=== PATIENT | male | born 1950 | race Caucasian/White ===

== ENCOUNTER 2023-04-18 08:53 | Outpatient (OUT) | payer MEDICARE, SELFPAY ==
[2023-04-18 09:10] LABS: Basophils Percent Auto 0.6 % (0.2-2.0); Hemoglobin 14.7 g/dL (14.0-18.0); Immature Granulocytes Abs Auto 0.01 10^3/uL (0.00-0.03); Immature Granulocytes Pct Auto 0.1 % (0.0-0.5); Lymphocytes Percent Auto 27.5 % (20.5-60.0); Mean Corpuscular HGB Conc 33.4 g/dL (29.9-35.2); Mean Corpuscular Hemoglobin 32.4 pg (25.9-34.0); Mean Corpuscular Volume 96.9 fL (80.0-94.0); Mean Platelet Volume 9.9 fL (9.5-13.5); Monocytes Absolute Auto 0.7 10^3/uL (0.3-0.8); Monocytes Percent Auto 9.6 % (1.7-12.0); Neutrophils Absolute Auto 4.5 10^3/uL (1.4-6.5); Neutrophils Percent Auto 62.2 % (43.0-75.0); Platelet Count 256 10^3/uL (150-450); Red Blood Count 4.54 10^6/uL (4.70-6.10); White Blood Count 7.2 10^3/uL (4.0-11.0)
[2023-04-18 09:48] LABS: Alanine Aminotransferase 44 U/L (16-63); Anion Gap 12.2; BUN Creatinine Ratio 17.3; Carbon Dioxide 27.2 mmol/L (21.0-32.0); Chloride 102 mmol/L (98-107); Chol HDL Ratio 3.9; Cholesterol 170 mg/dL (<=200); Estimated GFR (African America >60 (>=60); Estimated GFR (Non-African Ame >60 (>=60); Glucose 110 mg/dL (74-106); HDL Cholesterol 44 mg/dL (40-60); Potassium 4.4 mmol/L (3.5-5.1); Sodium 137 mmol/L (136-145); Triglycerides 196 mg/dL (<=150); VLDL CHOLESTEROL 39.2 mg/dL
== END 2023-04-18 08:54 | disposition home or self-care (01) ==
LOC: LAB 08:54
PROVIDERS: PCP Internal Medicine; Visit Provider Internal Medicine
DX: K21.00 Gastro-esophageal reflux disease with esophagitis, without bleeding (principal); Z79.899 Other long term (current) drug therapy; E78.01 Familial hypercholesterolemia; R53.83 Other fatigue; Z12.5 Encounter for screening for malignant neoplasm of prostate
CPT/HCPCS: 36415; 80048; 80061; 84460; 85025; G0103

== ENCOUNTER 2023-07-08 09:30 | Outpatient (OUT) | payer MEDICARE, SELFPAY ==
--- NOTE | 2023-07-08 09:52 | XR_ITS ---
The [address] [address] Patient Name: SAV RAYMUNDO MRN: [id number] date: 1950 Sex: M Assigned Patient Location: [facility] Current Patient Location: [facility] Accession/Order Number: [id number] Exam Date: 07/08/2023 09:45 Report Date: 07/08/2023 10:01 At the request of: YULI MARISCAL Procedure: XR chest 2V EXAM: XR chest 2V HISTORY: Subacute Cough R05.2 COMPARISON: None. TECHNIQUE: PA and lateral views of the chest. FINDINGS: The cardiomediastinal silhouette is normal. No focal consolidation is identified. There is no pneumothorax. No pleural effusion is noted. The osseous structures are intact. XR/XR chest 2V IMPRESSION: No acute cardiopulmonary process. Electronically authenticated by: WES VITALE Date: 07/08/2023 10:01
== END 2023-07-08 09:31 | disposition home or self-care (01) ==
LOC: RAD 09:32
PROVIDERS: PCP Internal Medicine; Visit Provider Internal Medicine
DX: R05.2 Subacute cough (principal)
CPT/HCPCS: 71046

== ENCOUNTER 2023-08-15 11:35 | Emergency (ER) | payer MEDICARE, SELFPAY ==
[2023-08-15] VITALS (12 sets, daily range): BP systolic 165; BP diastolic 95; PULSE 73–82; RESP 14–28; TEMP 37.1; O2SAT 98; BMI 30.5
--- NOTE | 2023-08-15 11:44 | PC.NURSE ---
PT STATES THAT PT HAS HAD COUGH THAT STARTED AROUND THANKSGIVING. PT STATES THAT DR MARISCAL WANTED PT TO HAVE BLOOD WORK, ECHO, AND CT OF CHEST. PT STATES THAT BETWEEN DR MARISCAL OFFICE AND THE HOSPITAL SCHEDULING SOMEHOW ORDERS WERE NOT RECEIVED AND DR MARISCAL TO PT TO COME TO ER FOR TESTING.
--- OUTSIDE RECORDS SUMMARY | 2023-08-15 11:50 | XMS_ITS | CCD ---
Author Name Unknown Address [address] [place] [address] Organization [facility] Care Team Providers Care Stitching Department Supervisor Name Role Phone Ball, Dawit E Unavailable Ball, Dawit E Unavailable Karthik Calloway Unavailable [phone] Unavailable Primary Care Provider Unavailabl e Ball, Dawit E Primary Care Provider Ball, Dawit E Unavailable Karthik Calloway Unavailable Ball, Dawit E Primary Care Provider Ball, Dawit E Unavailable Karthik Calloway Unavailable Unavailabl e Ball DO, Dawit E Primary Care Provider Ball DO, Dawit E Unavailable Karthik Calloway MD Unavailable Unavail able REQUEST, NONE LISTED Consulting Unavaila ble REQUEST, DR RUBIO LISTED Admitting Unavaila ble BALL, DR ROLDAN Primary Care Unavailable REQUEST, NONE LISTED Attending Unavaila ble BALL, DR ROLDAN Attending Unavailable BALL, DR ROLDAN Consulting Unavailable BALL, DR ROLDAN Admitting Unavailable Ball DO, Dawit E Primary Care Provider Ball DO, Dawit E Unavailable [phone] Karthik Calloway MD Unavailable Unavail able Dawit Lorenz Unavailable MARGIE LI Referring Unavailab MARGIE Buckner Admitting Unavailab le LOIDA, DAWIT E Primary Care Unavailable LOIDA, DAWIT E Primary Care Unavailable FLIP HILL Attending Unavailable LOIDA, DAWIT E Primary Care Unavailable MARGIE LI Attending Unavailab le LOIDA, DAWIT E Primary Care Unavailable NENA BYNUM Attending Unavailable BALL, DAWIT E Primary Care Unavailable NENA BYNUM Admitting Unavailable NENA BYNUM Referring Unavailable DAWIT LORENZ Primary Care Unavailable MARGIE LI Attending UnavailDAWIT Barry Primary Care Unavailable MARGIE LI Attending Unavailab DAWIT Gonzalez Primary Care Unavailable MARGIE LI Referring Unavailab MARGIE Buckner Admitting Unavailab MARGIE Buckner Referring Unavailab le MARGIE LI Admitting Unavailab DAWIT Gonzalez Primary Care Unavailable MARGIE LI Referring Unavailab le MARGIE LI Admitting Unavailab DAWIT Gonzalez Primary Care Unavailable Allergies Allergy Classification Reported Allergen(s) Allergy Type Date of Onset Reaction(s) Facility (16 sources) acetaminophen / oxyCODONE; Translations: [OXYCODONE-ACETAM INOPHEN] Propensity to adverse reactions to drug 6 Other (See Comments) [facility] Work Phone: (20 sources) traMADol; Translations: [TRAMADOL] Propensity to adverse reactions to drug 5 Shortness Of Breath [facility] Work Phone: (1 source) traMADol Drug Allergy 6 [facility] Medications Current Medications Medication Drug Class(es) Dates Sig (Normalized) Sig (Original) AeroChamber Mini Chamber - (1 source) Start: 07-23-2023 AeroChamber Mini Chamber - Use w/ MDI inhaled every 6 hours as needed for 30 days Jul, Active [id number] actuat albuterol 0.09 mg/actuat metered dose inhaler (1 source) beta2-Adrenergic Agonist Start: 07-23-2023 Albuterol Sulfate HFA 108 (90 Base) MCG/ACT 2 puffs Inhalation every 6 hours as needed for cough. Minimum bid for 30 days Jul, Active ASCORBATE CALCIUM (VITAMIN C ORAL) (14 sources) take 1 tablet by mouth once daily in the morning ASCORBATE CALCIUM (VITAMIN C ORAL) Take 1 tablet by mouth every morning . 0 Active take 1 tablet by av th once daily in the morning ASCORBATE CALCIUM (VITAMIN C ORAL) Take 1 tablet by mouth every morning . Active aspirin 81 mg delayed release oral tablet (15 sources) Platelet Aggregation Inhibitor, Nonsteroidal Anti-inflammatory Drug take 1 tablet by mouth at bedtime aspirin 81 MG EC tablet Take 1 (one) tablet (81 mg total) by mouth at bedtime . 0 Active benzonatate 100 mg oral capsule (4 sources) Non-narcotic Antitussive Start: 07-07-19 24 take 1 capsule by mouth every eight hours Benzonatate 100 MG 1 capsule as needed Orally Three times a day for 15 days Jun, Active Biotin (15 sources) take 1 tablet by mouth once daily in the morning BIOTIN ORAL Take 1 tablet by mouth every morning . 0 Active take 1 tablet by av th once daily in the morning BIOTIN ORAL Take 1 tablet by mouth every morning . Active take 1 tablet by av th once daily in the morning BIOTIN ORAL Take 1 tablet by mouth every morning . Active calcium polycarbophil 625 mg oral tablet (15 sources) take 1 tablet by mouth once daily in the morning polycarbophil (FIBERCON) 625 mg tablet Take 1 (one) tablet (625 mg total) by mouth every morning . 0 Active ciprofloxacin 3 mg/ml ophthalmic solution (6 sources) Quinolone Antimicrobial Start: 10-05-19 take 1 drop(s) into the eye(s) four times daily ciprofloxacin HCl (CILOXAN) 0.3 % ophthalmic solution INSTILL 1 DROP INTO AFFECTED EYE 4 TIMES DAILY 0 10/04/2022 Active codeine phosphate 2 mg/ml / guaiFENesin 20 mg/ml oral solution (2 sources) Opioid Agonist Start: 07-10-19 take 10 mL by mouth every six hours as needed for cough guaiFENesin-Codeine 100-10 MG/5ML 10 mL as needed Orally every 6 hours as needed for cough for 7 days Jun, Active diclofenac sodium 0.01 mg/mg topical gel (9 sources) Nonsteroidal Anti-inflammatory Drug Start: 05-13-20 diclofenac sodium (Voltaren) 1 % Gel Apply 2 (two) g topically 4 (four) times a day Apply 2 grams to affected area up to 4 times a day as needed PRN pain. . 900 g 2 05/13/2023 Active Start: 08-30-2022 End: 08-30-2022 diclofenac sodium (Voltaren) 1 % Gel Apply 2 (two) g topically 4 (four) times a day Apply 2 grams to affected area up to 4 times a day as needed PRN pain. . 300 g 2 08/31/2022 Active fluorouracil 50 mg/ml topical cream (12 sources) Nucleoside Metabolic Inhibitor Start: 07-12-2020 fluorouraciL (EFUDEX ) 5 % cream GUAIFENESIN/DEXTROMETHO RPHAN (MUCINEX DM ORAL) (14 sources) GUAIFENESIN/DEXT ROMETH ORPHAN (MUCINEX DM ORAL) Take by mouth. 0 Active GUAIFENESIN/DEXT ROMETHORPHAN (MUCINEX DM ORAL) Take by mouth. Active ketorolac tromethamine 5 mg/ml ophthalmic solution (6 sources) Nonsteroidal Anti-inflammatory Drug, Cyclooxygenase Inhibitor Start: 10-01-2022 take 2 drop(s) into the eye(s) twice daily ketorolac (ACULAR) 0.5 % ophthalmic solution INSTILL 2 DROPS INTO AFFECTED EYE TWICE DAILY 0 10/01/2022 Active loratadine 10 mg oral tablet (15 sources) take 1 tablet by mouth once daily in the evening loratadine (CLARITIN) 10 mg tablet Take 1 (one) tablet (10 mg total) by mouth every evening . 0 Active losartan potassium 25 mg oral tablet (7 sources) Angiotensin 2 Receptor Masha Start: 04-25-2023 take 1 tablet by mouth every twenty-four hours Losartan Potassium 25 MG 1 tablet Orally Once a day for 90 days Apr, Active meloxicam 15 mg oral tablet (20 sources) Nonsteroidal Anti-inflammatory Drug Start: 05-13-2023 meloxicam (MOBIC) 15 MG tablet Take 1 (one) tablet (15 mg total) by mouth as needed . 90 tablet 0 05/13/2023 Active Start: 07-20-2020 End: 02-11-2023 meloxicam (MOBIC) 15 MG tabl et Take 1 (one) tablet (15 mg total) by mouth as needed . 90 tablet 0 02/12/2023 Active Start: 02-25-2017 End: 02-25-2018 take 1 tablet by mouth twice daily as needed for pain meloxicam (MOBIC) 7.5 MG tablet Take 1 (one) tablet (7.5 mg total) by mouth 2 (two) times a day as needed for pain. 180 tablet 3 02/25/2017 02/25/2018 Active Start: 01-29-2017 End: 01-29-2018 take 0.5 tablet by mouth twice daily meloxicam (MOBIC) 15 MG tablet Indications: Status post total right knee replacement Take 0.5 (one-half) tablet (7.5 mg total) by mouth 2 (two) times a day. 180 tablet 3 01/29/2017 01/29/2018 Active End: 07-20-2020 take 1-2 tablets by mouth once daily as needed meloxicam (MOBIC) 7.5 MG tablet Take 7.5 mg by mouth daily 1-2 tabs prn . 0 07/20/2020 Discontinued multivitamin (multivitamin) per tablet (5 sources) take 1 tablet by av th once daily in the morning multivitamin (multivitamin) per tablet Take 1 tablet by mouth every morning . 0 Active take 1 tablet by av th once daily in the morning multivitamin (multivitamin) per tablet T kerry 1 tablet by mouth every morning . Active multivitamin (THERAGRAN) per tablet (9 sources) take 1 tablet by mouth once daily in the morning multivitamin (THERAGRAN) per tablet Take 1 (one) tablet by mouth every morning . 0 Active Multivitamin Tablet (1 source) take 1 tablet by mouth once daily in the morning multivitamin (multivitamin) per tablet Take 1 tablet by mouth every morning . Active [place] 3 (11 sources) [place] 3 Active prednisoLONE acetate 10 mg/ml ophthalmic suspension (6 sources) Corticosteroid Start: 10-02-19 23 prednisoLONE acetate (PRED FORTE) 1 % ophthalmic suspension INSTILL 1 DROP INTO AFFECTED EYE INTO AFFECTED EYE 4 TIMES DAILY DIRECTED 0 10/01/2022 Active predniSONE 20 mg oral tablet (1 source) Start: 07-23-19 24 predniSONE 20 MG 1 tablet Orally bid w/ food x 4 days then qd w/ food x 4 days for 8 days Jul, Active raNITIdine (3 sources) Histamine-2 Receptor Antagonist Ranitidine HCl Active tamsulosin hydrochloride 0.4 mg oral capsule (20 sources) alpha-Adrenergic Masha take 1 capsule by mouth every twenty-four hours Tamsulosin HCl 0.4 MG 1 capsule Orally Once a day Active vit A-vit C-vit E-vjxa-cizsjh (EYE VITAMIN AND MINERALS) 7,160-113-100 kcld-si-uzpy Tab (4 sources) take 1 tablet by mouth once daily in the morning vit A-vit C-vit N-myjb-hbaxzp (EYE VITAMIN AND MINERALS) 7,160-113-100 swwi-gs-ozwi Tab Take 1 tablet by mouth every morning . 0 Active vit A-vit C-vit S-tgta-mmegvd 7,160-113-100 nxoi-ku-owdc Tab (9 sources) take 1 tablet by mouth once daily in the morning vit A-vit C-vit B-gfjg-gmxwuw 7,160-113-100 buge-pm-ubsw Tab Take 1 tablet by mouth every morning . 0 Active Vitamin C Oral (1 source) take 1 tablet by mouth once daily in the morning ASCORBATE CALCIUM (VITAMIN C ORAL) Take 1 tablet by mouth every morning . Active Vit A 7,160 Unit-Vit C 113 Mg-Vit E 100 Xyso-Moum-Qtqhwu Tablet (2 sources) take 1 tablet by mouth once daily in the morning vit A-vit C-vit C-wwkf-kqxmeu (EYE VITAMIN AND MINERALS) 7,160-113-100 mqyi-uz-wogh Tab Take 1 tablet by mouth every morning . Active Completed/Discontinued Medications Medication Drug Class(es) Dates Sig (Normalized) Sig (Original) allopurinol 300 mg oral tablet (20 sources) Xanthine Oxidase Inhibitor Start: 01-08-2022 take 1 tablet by mouth once daily Allopurinol 300MG Allopurinol 300MG, 1 (one) Tablet daily # 0, 01/08/2022, No Refill. Active Oral daily for 0 *Pick strength-form from [employer] for eRX* Dec, Not-Taking atorvastatin 10 mg oral tablet (20 sources) HMG-CoA Reductase Inhibitor Start: 08-15-2021 take 1 tablet by mouth once daily in the evening Atorvastatin Calcium 10MG Atorvastatin Calcium 10MG, 1 (one) Tablet Tablet daily in evening # 0, 08/15/2021, No Refill. Active Oral daily in evening for 0 *Pick strength-form from [employer] for eRX* Aug, Not-Taking azithromycin 250 mg oral tablet (20 sources) Macrolide Antimicrobial Start: 11-15-2022 Azithromycin 250 MG as directed Orally daily for 5 days May, Not-Taking/PRN cephalexin 500 mg oral capsule (20 sources) Cephalosporin Antibacterial Start: 01-10-2023 take 1 capsule by mouth every eight hours Cephalexin 500 MG 1 capsule Orally tid for 5 days Dec, Not-Taking/PRN Start: 07-11-2022 [facility] needed Cephalexin 500 MG 1 capsule Orally twice daily for 7 days Jun, Not-Taking/PRN doxycycline hyclate 100 mg oral capsule (11 sources) Tetracycline-class Drug Start: 06-24-2022 take 1 capsule by mouth every twelve hours Doxycycline Hyclate 100 MG 1 capsule Orally Twice a day for 7 days Jun, Not-Taking/PRN mupirocin 0.02 mg/mg topical ointment (11 sources) RNA Synthetase Inhibitor Antibacterial Start: 07-11-2022 Mupirocin 2 % 1 application Externally Twice a day for 7 days Jun, Not-Taking/PRN omeprazole 20 mg oral tablet (20 sources) Proton Pump Inhibitor Start: 12-22-2021 take 1 capsule by mouth once daily as needed Omeprazole 20MG Omeprazole 20MG, 1 (one) Capsule Capsule daily on empty stomach followed in 30 minutes by bkfst # 0, 12/22/2021, No Refill. Active Oral daily on empty stomach followed in 30 minutes by bkfst for 0 *Pick strength-form from [employer] for eRX* Dec, Not-Taking/PRN Omeprazole 20 mg TAKE 1 CAPSULE DAILY ON AN EMPTY STOMACH, FOLLOWED IN 30 MINUTES BY BREAKFAST Active sildenafil 100 mg oral tablet (11 sources) Phosphodiesterase 5 Inhibitor Start: 01-03-2022 Sildenafil Citrate 100MG Sildenafil Citrate 100MG, 1 (one) Tablet 1 PO PRN ED # 6, 01/03/2022, Ref. x5. Active Oral 1 PO PRN ED for 30 *Pick strength-form from [employer] for eRX* Dec, Not-Taking/PRN Problems Active Problems Problem Classification Problem Date Documented Da te Episodic/Chronic Acquired foot deformities (6 sources) Toe joint rigid; Translations: [Hallux rigidus, left foot] Onset: 3 Chronic Acute bronchitis (1 source) Acute bronchitis due to other specified organisms Episodic Diseases of white blood cells (15 sources) Leukocytosis; Translations: [Elevated white blood cell count, unspecified] Onset: 5 08-24-2014 Chronic Disorders of lipid metabolism (20 sources) Hyperlipidemia; Translations: [Hyperlipidemia, unspecified] Onset: 5 08-23-2014 Chronic Diverticulosis and diverticulitis (11 sources) Diverticulosis of sigmoid colon; Translations: [Diverticulosis of large intestine without perforation or abscess without bleeding] Chronic Esophageal disorders (20 sources) Gastroesophageal reflux disease; Translations: [Gastro-esophageal reflux disease without esophagitis] Chronic Essential hypertension (10 sources) Essential hypertension; Translations: [Essential (primary) hypertension] Chronic Gastrointestinal hemorrhage (20 sources) Blood-tinged feces; Translations: [Melena] Episodic Hemorrhoids (11 sources) Hemorrhoids; Translations: [Unspecified hemorrhoids] Episodic Hyperplasia of prostate (11 sources) Lower urinary tract symptoms due to benign prostatic hypertrophy; Translations: [Benign prostatic hyperplasia with lower urinary tract symptoms] Chronic Malaise and fatigue (1 source) Other fatigue Episodic Open wounds of head; neck; and trunk (1 source) Laceration without foreign body of scalp, initial encounter Episodic Osteoarthritis (20 sources) Unilateral primary osteoarthritis, left knee; Translations: [Osteoarthritis of knee] Onset: 5 08-23-2014 Chronic Osteoarthritis (6 sources) Osteoarthritis of left knee joint; Translations: [Osteoarthritis of left knee] Onset: 5 08-23-2014 Other aftercare (1 source) Other [place] (current[facility] drug therapy Episodic Other circulatory disease (1 source) Elevated blood-pressure reading, without diagnosis of hypertension Episodic Other connective tissue disease (20 sources) History of total knee arthroplasty; Translations: [Presence of artificial knee joint, bilateral] Onset: 7 06-25-2016 Chronic Other connective tissue disease (1 source) Metatarsalgia of left foot; Translations: [Metatarsalgia, left foot] 10-08-2022 Episodic Other gastrointestinal disorders (10 sources) Dysphagia; Translations: [Dysphagia, unspecified] Episodic Other gastrointestinal disorders (1 source) Dysphagia, unspecified; Translations: [Dysphagia] Episodic Other male genital disorders (10 sources) Impotence of organic origin; Translations: [Erectile dysfunction due to arterial insufficiency] Chronic Other male genital disorders (1 source) Erectile dysfunction due to arterial insufficiency; Translations: [Erectile dysfunction due to arterial insufficiency] Chronic Other nervous system disorders (1 source) Mortons neuroma of left foot; Translations: [Lesion of plantar nerve, left lower limb] Chronic Other nervous system disorders (2 sources) Lesion of plantar nerve, left lower limb; Translations: [Lesion of plantar nerve, left lower limb] Onset: 3 Chronic Other non-traumatic joint disorders (2 sources) Pain in left knee; Translations: [Pain in left knee] Onset: 3 Episodic Other nutritional; endocrine; and metabolic disorders (15 sources) Obesity; Translations: [Obesity, unspecified] Onset: 5 03-17-2015 Chronic Other nutritional; endocrine; and metabolic disorders (8 sources) Body mass index 30+ - obesity; Translations: [Body mass index (BMI) 30.0-30.9, adult] Chronic Other nutritional; endocrine; and metabolic disorders (8 sources) Obesity caused by energy imbalance; Translations: [Other obesity due to excess calories] Chronic Other nutritional; endocrine; and metabolic disorders (1 source) Other obesity due to excess calories Chronic Other nutritional; endocrine; and metabolic disorders (1 source) Body mass index (BMI) 30.0-30.9, adult Chronic Other screening for suspected conditions (not mental disorders or infectious disease) (6 sources) Encounter for screening for malignant neoplasm of prostate; Translations: [ENC SCREEN MALIG NEOPLASM PROSTATE] Onset: 2 Episodic Past or Other Problems Problem Classification Problem Date Documented Date Episodic/Chronic Acute posthemorrhagic anemia (15 sources) Acute posthemorrhagic anemia; Translations: [Acute posthemorrhagic anemia] Onset: 08-24-2014 08-24-2014 Episodic Esophageal disorders (4 sources) Esophageal disorders; Translations: [Gastro-esophageal reflux disease with esophagitis, without bleeding] Genitourinary symptoms and ill-defined conditions (20 sources) Retention of urine; Translations: [Retention of urine, unspecified] Onset: 08-25-2014 08-25-2014 Episodic Other connective tissue disease (2 sources) Pain in right foot; Translations: [Pain in right foot] Onset: 08-28-2022 Episodic Other connective tissue disease (2 sources) Pain in left foot; Translations: [Pain in left foot] Onset: 08-28-2022 Episodic Other lower respiratory disease (10 sources) Cough; Translations: [Cough, unspecified] Onset: 09-06-2014 Episodic Unclassified (3 sources) Subacute cough R05.2 Unclassified (1 source) Cough, unspecified; Translations: [Cough, unspecified] Onset: 09-06-2014 Results Test Name Value Interpretation Reference Range Facility XR KNEE LEFT 4+ VIEWS (SPECI FY VIEWS IN COMMENTS)on 01-16-2023 XR KNEE LEFT 4+ VIEWS (SPECIFY VIEWS IN COMMENTS) X-rays of the left knee from [facility] taken today are reviewed. My personal interpretation is they demonstrate well aligned components in good overall alignment with no interval change from most recent imaging. Although the patella does track well within the trochlear groove it is angled laterally. There is also an evident bony nodule lateral to the patella that has been stable since 2020. There are no findings of fracture, significant osteolysis or loosening. Dictated by: NENA BYNUM on SatJan 16, 2023 10:52:01 AM EDT Transcribed by: NENA BYNUM on SatJan 16, 2023 10:52:01 AM EDT Finalized by: NENA BYNUM on SatJan 16, 2023 10:52:01 AM EDT [facility] Comment on above: Order Comment: Injur y/Trauma or Illness?:Illness/Other How long have you had these symptoms (acute/chronic)?:Unknown Reason for exam?:U History of cancer?:n/a Surgeries, chemotherapy, or radiation?:n/a Type of Exam?:Unknown Additional signs and symptoms?:U XR ANKLE LEFT 3+ VIEWS (CANDIS STYLES)on 08-28-2022 XR ANKLE LEFT 3+ VIEWS (STANDARD) Weightbearing radiographs of the left foot and ankle were obtained today's visit. There is severe arthritis at the left first MTP joint. There is a large dorsal exostosis in this region at the first metatarsal head. No acute fractures are noted. The ankle mortise is are intact. There is no medial clear space widening. There is mild arthritis noted at the medial gutter, bilateral. Dictated by: MARGIE LI on SatAug 28, 2022 1:49:21 PM EDT Transcribed by: MARGIE LI on SatAug 28, 2022 1:49:21 PM EDT Finalized by: MARGIE LI on SatAug 28, 2022 1:49:21 PM EDT [facility] Comment on above: Order Comment: Injur y/Trauma or Illness?:Illness/Other How long have you had these symptoms (acute/chronic)?:Unknown Reason for exam?:n/a History of cancer?:n/a Surgeries, chemotherapy, or radiation?:n/a Type of Exam?:Unknown Additional signs and symptoms?:n/a XR ANKLE RIGHT 3+ VIEWS (STA NDARD)on 08-28-2022 XR ANKLE RIGHT 3+ VIEWS (STANDARD) Weightbearing radiographs of the right foot and ankle were obtained today's visit. The ankle mortise is intact without fracture or dislocation. There is a posterior calcaneal enthesophyte noted. There is mild arthritis at the first MTP joint. There are lesser toe deformities noted. Dictated by: MARGIE LI on SatAug 28, 2022 1:50:20 PM EDT Transcribed by: MARGIE LI on SatAug 28, 2022 1:50:20 PM EDT Finalized by: MARGIE LI on SatAug 28, 2022 1:50:20 PM EDT [facility] Comment on above: Order Comment: Injur y/Trauma or Illness?:Illness/Other How long have you had these symptoms (acute/chronic)?:Unknown Reason for exam?:n/a History of cancer?:n/a Surgeries, chemotherapy, or radiation?:n/a Type of Exam?:Unknown Additional signs and symptoms?:n/a XR FOOT LEFT 2 VIEWSon 08-28 XR FOOT LEFT 2 VIEWS Weightbearing radiographs of the left foot and ankle were obtained today's visit. There is severe arthritis at the left first MTP joint. There is a large dorsal exostosis in this region at the first metatarsal head. No acute fractures are noted. The ankle mortise is are intact. There is no medial clear space widening. There is mild arthritis noted at the medial gutter, bilateral. Dictated by: MARGIE LI on SatAug 28, 2022 1:49:28 PM EDT Transcribed by: MARGIE LI on SatAug 28, 2022 1:49:28 PM EDT Finalized by: MARGIE LI on SatAug 28, 2022 1:49:28 PM EDT [facility] Comment on above: Order Comment: Injur y/Trauma or Illness?:Illness/Other How long have you had these symptoms (acute/chronic)?:Unknown Reason for exam?:n/a History of cancer?:n/a Surgeries, chemotherapy, or radiation?:n/a Type of Exam?:Unknown Additional signs and symptoms?:n/a XR FOOT RIGHT 2 VIEWSon 03- XR FOOT RIGHT 2 VIEWS Weightbearing radiographs of the right foot and ankle were obtained today's visit. The ankle mortise is intact without fracture or dislocation. There is a posterior calcaneal enthesophyte noted. There is mild arthritis at the first MTP joint. There are lesser toe deformities noted. Dictated by: MARGIE LI on SatAug 28, 2022 1:50:37 PM EDT Transcribed by: MARGIE LI on SatAug 28, 2022 1:50:37 PM EDT Finalized by: MARGIE LI on SatAug 28, 2022 1:50:37 PM EDT [facility] Comment on above: Order Comment: Injur y/Trauma or Illness?:Illness/Other How long have you had these symptoms (acute/chronic)?:Unknown Reason for exam?:n/a History of cancer?:n/a Surgeries, chemotherapy, or radiation?:n/a Type of Exam?:Unknown Additional signs and symptoms?:n/a CBC AUTO DIFFon 03-19-2022 BASO # 0.1 103/ul Normal 0.0-0.1 [facility] Comment on above: Performed By: #### D ATCBC #### [facility] [address] [address] [address] Joni Sanders Basophils/100 WBC (Bld) 1.0 % Normal 0.2-2.0 [facility] Comment on above: Performed By: #### D ATCBC #### [facility] [address] [address] [address] Joni Sanders EO # 0.1 103/ul Normal 0.0-0.7 [facility] Comment on above: Performed By: #### D ATCBC #### [facility] [address] [address] [address] Joni Sanders Eosinophils/100 WBC (Bld) 2.0 % Normal 0.9-7.0 [facility] Comment on above: Performed By: #### D ATCBC #### [facility] [address] [place] [address] Dr. Joni Sanders Erythrocyte distribution width (RBC) [Ratio] 12.4 % Normal 11.0-15.0 [facility] Comment on above: Performed By: #### D ATCBC #### [facility] [address] [place] [address] Dr. Joni Sanders Hematocrit (Bld) [Volume fraction] 43.7 % Normal 42.0-54.0 [facility] Comment on above: Performed By: #### D ATCBC #### [facility] [address] [place] [address] Dr. Joni Sanders Hemoglobin (Bld) [Mass/Vol] 14.6 g/dL Normal 14.0-18.0 [facility] Comment on above: Performed By: #### D ATCBC #### [facility] [address] [place] [address] Dr. Joni Sanders IG # 0.02 10e3/ul Normal 0.00-0.03 [facility] Comment on above: Performed By: #### D ATCBC #### [facility] [address] [place] [address] Dr. Joni Sanders IG % 0.3 % Normal 0.0-0.5 [facility] Comment on above: Performed By: #### D ATCBC #### [facility] [address] [place] [address] Dr. Joni Sanders LYMPH # 2.0 103/ul Normal 1.2-3.8 [facility] Comment on above: Performed By: #### D ATCBC #### [facility] [address] [place] [address] Dr. Joni Sanders Lymphocytes/100 WBC (Bld) 33.3 % Normal 20.5-60.0 [facility] Comment on above: Performed By: #### D ATCBC #### [facility] [address] [place] [address] Dr. Joni Sanders MCH (RBC) [Entitic mass] 32.6 pg Normal 25.9-34.0 [facility] Comment on above: Performed By: #### D ATCBC #### [facility] [address] [place] [address] Dr. Joni Sanders MCHC (RBC) [Mass/Vol] 33.4 g/dL Normal 29.9-35.2 [facility] Comment on above: Performed By: #### D ATCBC #### [facility] [address] [place] [address] Dr. Joni Sanders MCV (RBC) [Entitic vol] 97.5 fL Critically high 80.0-94.0 [facility] Comment on above: Performed By: #### D ATCBC #### [facility] [address] [place] [address] Dr. Joni Sadners MONO # 0.6 103/ul Normal 0.3-0.8 [facility] Comment on above: Performed By: #### D ATCBC #### [facility] [address] [place] [address] Dr. Joni Sanders Monocytes/100 WBC (Bld) 9.8 % Normal 1.7-12.0 [facility] Comment on above: Performed By: #### D ATCBC #### [facility] [address] [place] [address] Dr. Joni Sanders NEUT # 3.2 103/ul Normal 1.4-6.5 [facility] Comment on above: Performed By: #### D ATCBC #### [facility] [address] [place] [address] Dr. Joni Sanders Neutrophils/100 WBC (Bld) 53.6 % Normal 43.0-75.0 [facility] Comment on above: Performed By: #### D ATCBC #### [facility] [address] [place] [address] Dr. Joni Sanders Platelet mean volume (Bld) [Entitic vol] 9.9 fL Normal 9.5-13.5 [facility] Comment on above: Performed By: #### D ATCBC #### [facility] [address] [place] [address] Dr. Joni Sanders PLT 239 103/ul Normal 150-450 [facility] Comment on above: Performed By: #### D ATCBC #### [facility] [address] [address] [address] Joni Sanders RBC 4.48 106/ul Critically low 4.70-6.[address] [facility] Comment on above: Performed By: #### D ATCBC #### [facility] [address] [address] [address] Joni Sanders WBC 5.9 103/ul Normal 4.0-11.0 [facility] Comment on above: Performed By: #### D ATCBC #### [facility] [address] [address] [address] Joni Sanders SILVIA- BMP WITH LIPIDon 2021 Anion gap [Moles/Vol] 12.7 mmol/L Normal [facility] Comment on above: Performed By: #### D ATBMP #### [facility] [address] [address] [address] Joni Sanders Calcium [Mass/Vol] 9.0 mg/dL Normal 8.5-10.1 [facility] Comment on above: Performed By: #### D ATBMP #### [facility] [address] [address] [address] Joni Sanders Chloride [Moles/Vol] 104 mmol/L Normal 98-107 [facility] Comment on above: Performed By: #### D ATBMP #### [facility] [address] [address] [address] Joni Sanders Cholesterol [Mass/Vol] 188 mg/dL Normal <=200 [facility] Comment on above: Performed By: #### D ATBMP #### [facility] [address] [address] [address] Joni Sanders Cholesterol in HDL [Mass/Vol] 45 mg/dL Normal 40-60 [facility] Comment on above: Performed By: #### D ATBMP #### [facility] [address] [address] [address] Joni Sanders Cholesterol in LDL [Mass/Vol] 102.2 mg/dL Normal [facility] Comment on above: Performed By: #### D ATBMP #### [facility] [address] [address] [address] Joni Sanders CO2 [Moles/Vol] 27.7 mmol/L Normal 21.0-32.0 [facility] Comment on above: Performed By: #### D ATBMP #### [facility] [address] [address] [address] Joni Sanders Creatinine [Mass/Vol] 1.00 mg/dL Normal 0.70-1.30 [facility] Comment on above: Performed By: #### D ATBMP #### [facility] [address] [address] [address] Joni Sanders EGFR-AF HONDURAN >60 Normal >=60 [facility] Comment on above: Performed By: #### D ATBMP #### [facility] [address] [address] [address] Joni Sanders EGFR-NON AF HONDURAN >60 Normal >=60 [facility] Comment on above: Performed By: #### D ATBMP #### [facility] [address] [address] [address] Joni Sanders Glucose [Mass/Vol] 107 mg/dL Critically high 74-106 [facility] Comment on above: Performed By: #### D ATBMP #### [facility] [address] [address] [address] Joni Sanders HDL NORMAL > or = 60 mg/dl - LOW CARDIOVASCULAR RISK <40 mg/dl - HIGH CARDIOVASCULAR RISK Normal [facility] Comment on above: Performed By: #### D ATBMP #### [facility] [address] [address] [address] Joni Sanders LDL CALC NORMAL SEE BELOW Normal [facility] Comment on above: Result Comment: <100 mg/dl OPTIMAL 100 - 129 mg/dl NEAR OR ABOVE OPTIMAL 130 - 159 mg/dl BORDERLINE HIGH 160 - 189 mg/dl HIGH >190 mg/dl VERY HIGH Performed By: #### D ATBMP #### [facility] [address] [address] [address] Joni Sanders Potassium [Moles/Vol] 4.4 mmol/L Normal 3.5-5.1 [facility] Comment on above: Performed By: #### D ATBMP #### [facility] [address] [place] [address] Dr. Joni Sanders Sodium [Moles/Vol] 140 mmol/L Normal 136-145 [facility] Comment on above: Performed By: #### D ATBMP #### [facility] [address] [place] [address] Dr. Joni Sanders Triglyceride [Mass/Vol] 204 mg/dL Critically high <=150 [facility] Comment on above: Performed By: #### D ATBMP #### [facility] [address] [place] [address] Dr. Joni Snaders Urea nitrogen [Mass/Vol] 22.0 mg/dL Critically high 7.0-18.0 [facility] Comment on above: Performed By: #### D ATBMP #### [facility] [address] [place] [address] Dr. Joni Sanders Urea nitrogen/Creatinine [Mass ratio] 22.0 mg/mg Normal [facility] Comment on above: Performed By: #### D ATBMP #### [facility] [address] [place] [address] Dr. Joni Sanders VLDL CALC 40.8 mg/dL Normal [facility] Comment on above: Performed By: #### D ATBMP #### [facility] [address] [place] [address] Dr. Joni Arceo 12-16-2020 CNPN Telephone ([facility]) BRYAN HARRIS ([id number]) 1950 Date Time Provider Department 12/16/20 REBECCA IVEY [facility] During your visit today, we recorded the following information about you: Yesenia Hendersonochoa Pss 12/16/2020 9:43 AM Signed Patient has questions about past procedure Ph. [phone] Jessica Devlin RN 12/16/2020 12:09 PM Signed Call returned to patient. He was seen in office yesterday and RBL of hemorrhoids performed. He denies bleeding, pain, just some discomfort. He is having no concerns with urinating and has had one bowel movement since procedure. He is asking about activities and advised regular exercise, lifting are acceptable at this time. Encouraged avoiding constipation and continue with OTC fiber. Pt appreciative of the contact Allergies As of Date: 12/16/2020 Noted Allergy Reaction TRAMADOL 12/15/2020 1 - Mental Status Change Date Reviewed: 12/15/2020 Reviewed by: Rebecca Ivey MD - Fully Assessed Reason for Visit: Patient Question [5663] Prescriptions as of 12/16/2020 - allopurinol (ZYLOPRIM) 300 mg tablet Take 300 mg by mouth once daily. - atorvastatin (LIPITOR) 10 mg tablet Take 1 tablet by mouth once daily. - omeprazole (PRILOSEC) 20 mg capsule Take 1 capsule by mouth once daily. - tamsulosin (FLOMAX) 0.4 mg Take 1 capsule by mouth once daily. - raNITIdine HCl 300 mg tablet Take 1 tablet by mouth once daily. - meloxicam (MOBIC) 15 mg tablet Take 15 mg by mouth once daily. Problem List As Of Date: 12/16/2020 (None) Encounter Status:Closed by JESSICA DEVLIN on 12/16/20 [facility] CNOVon 12-15-2020 CNOV Office Visit ([facility]) BRYAN HARRIS ([id number]) 1950 Date Time Provider Department 12/15/20 11:30 AM REBECCA IVEY During your visit today, we recorded the following information about you: Pulse Blood pressure Weight Height 69/minute 148/89 99.8 kg 1.829 m Rebecca Ivey MD 12/15/2020 8:14 PM Signed COLORECTAL SURGERY December 15, 2020 Bryan Harris 70 year old This consult was requested by and my final recommendations will be communicated to the requesting health care provider by way of the shared medical record for internal providers or letter via the [employer] for external providers. Chief Complaint: hemorrhoids History of Present Illness: Bryan Harris is a 70 year old male presents to the office with hemorrhoids. Colonoscopy 12/07/20: Normal scope. He reports he often has severe rectal bleeding. It can be quite significant and he often has stains in his underwear. He does not have to strain significantly for bowel movements typically No past medical history on file. No past surgical history on file. No current outpatient medications on file. No current facility-administere d medications for this visit. ALLERGIES Not on File No family history on file. Social History Tobacco Use - Smoking status: Not on file Substance Use Topics - Alcohol use: Not on file - Drug use: Not on file Physical Exam: There were no vitals taken for this visit. General Appearance: Well appearing, alert, in no acute distress, well-hydrated, well nourished. Anorectal: External exam reveals no lesions. Digital rectal exam reveals no gross blood or massses Roller Inspector present: Yes, Carter Nunez Anoscopy: The patient was placed in chest-knee position. After digital exam with a lubricated finger, the scope was easily inserted. Moderately enlarged right posterior, right anterior and left lateral internal hemorrhoids were noted. Otherwise normal mucosa was noted. Anoscopy completed. Preoperative diagnosis: First to second degree hemorrhoids. Procedure: Anoscopy, rubber band ligation of hemorrhoids. Postoperative diagnosis: Same Indications: This 70 year old was found to have internal hemorrhoids that were not suitable for conservative management. Description of procedure: The patient was placed in the chest-knee position. A time out was completed. A digital rectal exam was performed. A lubricated anoscope was inserted into the anal canal. The three hemorrhoidal pedicles were identified and the redundant rectal mucosa just above the largest internal hemorrhoids (left lateral and right anterior) suctioned. Using the applicator, 2 rubber bands were placed around the tissue and were noted to be in good position. The mucosa was inspected for bleeding prior to withdrawal of the anoscope. The patient tolerated the procedure well with no excessive pain. Assessment Assessment and Plan: Bryan Harris is a 70 year old male with bleeding internal hemorrhoids. We talked about psyllium fiber supplementation as well as increasing water intake. We talked about good stool hygiene. We performed rubber band ligation of the right anterior and left lateral internal hemorrhoids. If the bleeding is persistent he will return to see me for consideration of repeat banding versus THD. Medical Decision Making: Data Reviewed: - Tests AND Documents Reviewed/ordered: Review of prior notes from Dr. Sales - Review of Labs: CBC, BMP - Review of Procedures / Tests: Colonoscopy Risk of morbidity, mortality and/or complications of treatment plan: moderate Rebecca Ivey MD Colorectal Surgery Referring Provider: REKHA SALES [[id number]] Allergies As of Date: 12/15/2020 Noted Allergy Reaction TRAMADOL 12/15/2020 1 - Mental Status Change Date Reviewed: 12/15/2020 Reviewed by: Rebecca Ivey MD - Fully Assessed Reason for Visit: Consult [502] Cmt: hemorrhoids Primary Visit Diagnosis:Hemorrhoid s, unspecified hemorrhoid type [K64.9] Prescriptions as of 12/15/2020 - allopurinol (ZYLOPRIM) 300 mg tablet Take 300 mg by mouth once daily. - atorvastatin (LIPITOR) 10 mg tablet Take 1 tablet by mouth once daily. - omeprazole (PRILOSEC) 20 mg capsule Take 1 capsule by mouth once daily. - tamsulosin (FLOMAX) 0.4 mg Take 1 capsule by mouth once daily. - raNITIdine HCl 300 mg tablet Take 1 tablet by mouth once daily. - meloxicam (MOBIC) 15 mg tablet Take 15 mg by mouth once daily. Problem List As Of Date: 12/15/2020 (None) Encounter Status:Closed by REBECCA IVEY on 12/15/20 Normal [facility] COVID-19 FRon 10-19-2020 SARS-CoV-2 (COVID-19) RNA BRYN+probe Ql (Unsp spec) Negative Normal Negative [facility] Comment on above: Order Comment: Healt hcare Worker?: N Result Comment: Test ing for SARS-CoV-2 by RT-PCR This test was developed and its performance characteristics determined by [employer] and validated at the [facility]. This test has not been FDA cleared or approved. This test has been authorized by FDA under an Emergency Use Authorization (EUA). This test has been validated in accordance with the FDA's Guidance Document (Policy for Diagnostics Testing in Laboratories Certified to Perform High Complexity Testing under CLIA prior to Emergency Use Authorization for Coronavirus Disease-2019 during the Public Health Emergency) issued on September 17, 2019. This test is only authorized for the duration of time the declaration that circumstances exist justifying the authorization of the emergency use of in vitro diagnostic tests for detection of SARS-CoV-2 virus and/or diagnosis of COVID-19 infection under section 564(b)(1) of the Act, 21 U.S.C. 360bbb-3(b)(1), unless the authorization is terminated or revoked sooner. PERFORMED BY: [place] [address] PATHOLOGIST MANAGER OF [employer]TER[employer] KATHY HENDRICKSON M.D. Performed By: #### C OVID-19 [facility] #### [address] CBC Without Differentialon 0 09-17-2020 Erythrocyte distribution width (RBC) [Ratio] 13.4 % Normal 12.0-14.8 [facility] Comment on above: Performed By: #### O UTREACH LIPID, CBCNOOUTREACH, OUTREACH CMP #### [address] Hematocrit (Bld) [Volume fraction] 42.2 % Normal 38.8-50.0 [facility] Comment on above: Performed By: #### O UTREACH LIPID, CBCNOOUTREACH, OUTREACH CMP #### [address] Hemoglobin (Bld) [Mass/Vol] 14.4 g/dL Normal 13.0-17.0 [facility] Comment on above: Performed By: #### O UTREACH LIPID, CBCNOOUTREACH, OUTREACH CMP #### [address] MCH (RBC) [Entitic mass] 33.2 pg Normal 27.5-35.2 [facility] Comment on above: Performed By: #### O UTREACH LIPID, CBCNOOUTREACH, OUTREACH CMP #### [address] MCV (RBC) [Entitic vol] 97.5 fL Normal 83.5-101 [facility] Comment on above: Performed By: #### O UTREACH LIPID, CBCNOOUTREACH, OUTREACH CMP #### [address] Mean Corpuscular HGB Conc 34.1 g/dL Normal 32.5-35.6 [facility] Comment on above: Performed By: #### O UTREACH LIPID, CBCNOOUTREACH, OUTREACH CMP #### [address] Platelet mean volume (Bld) [Entitic vol] 9.5 fL Normal 6.6-10.1 [facility] Comment on above: Result Comment: PERF ORMED BY: [place] [address] PATHOLOGIST MANAGER OF [employer] KATHY HENDRICKSON M.D. Performed By: #### O UTREACH LIPID, CBCNOOUTREACH, OUTREACH CMP #### [address] Platelets (Bld) [#/Vol] 216 10*3/uL Normal 150-450 [facility] Comment on above: Performed By: #### O UTREACH LIPID, CBCNOOUTREACH, OUTREACH CMP #### [address] RBC (Bld) [#/Vol] 4.33 10*6/uL Normal 3.90-5.60 [facility] Comment on above: Performed By: #### O UTREACH LIPID, CBCNOOUTREACH, OUTREACH CMP #### [facility] [address] [place] [address] WBC (Bld) [#/Vol] 6.7 10*3/uL Normal 4.1-10.5 [facility] Comment on above: Performed By: #### O UTREACH LIPID, CBCNOOUTREACH, OUTREACH CMP #### [facility] [address] [place] [address] CMP Outreachon 09-17-2020 Albumin [Mass/Vol] 4.2 g/dL Normal 3.2-5.5 [facility] Comment on above: Performed By: #### O UTREACH LIPID, CBCNOOUTREACH, OUTREACH CMP #### [facility] [address] [place] [address] ALP [Catalytic activity/Vol] 49 U/L Normal 32-92 [facility] Comment on above: Performed By: #### O UTREACH LIPID, CBCNOOUTREACH, OUTREACH CMP #### [address] ALT [Catalytic activity/Vol] 43 U/L Normal 10-60 [facility] Comment on above: Performed By: #### O UTREACH LIPID, CBCNOOUTREACH, OUTREACH CMP #### [address] AST [Catalytic activity/Vol] 36 U/L Normal 10-42 [facility] Comment on above: Performed By: #### O UTREACH LIPID, CBCNOOUTREACH, OUTREACH CMP #### [facility] [address] [place] [address] Bilirubin [Mass/Vol] 0.7 mg/dL Normal 0.3-1.2 [facility] Comment on above: Performed By: #### O UTREACH LIPID, CBCNOOUTREACH, OUTREACH CMP #### [facility] [address] [place] [address] Calcium [Mass/Vol] 8.9 mg/dL Normal 8.2-10.2 [facility] Comment on above: Performed By: #### O UTREACH LIPID, CBCNOOUTREACH, OUTREACH CMP #### [facility] [address] [id number] [place] Chloride [Moles/Vol] 102 mmol/L Normal 95-114 [facility] Comment on above: Performed By: #### O UTREACH LIPID, CBCNOOUTREACH, OUTREACH CMP #### [facility] [address] [place] [address] [place] CO2 [Moles/Vol] 26.5 mmol/L Normal 22.0-30.0 [facility] Comment on above: Performed By: #### O UTREACH LIPID, CBCNOOUTREACH, OUTREACH CMP #### [facility] [address] [place] [address] [place] Creatinine [Mass/Vol] 1.01 mg/dL Normal 0.64-1.27 [facility] Comment on above: Performed By: #### O UTREACH LIPID, CBCNOOUTREACH, OUTREACH CMP #### [facility] [address] [place] [address] [place] Estimated GFR ( Rena > 60 [facility] Comment on above: Result Comment: GFR estimated reference range: According to KDOQI guidelines, <60 ml/min/1.73m2 is sufficient to diagnose a patient with chronic kidney disease. Performed By: #### O UTREACH LIPID, CBCNOOUTREACH, OUTREACH CMP #### [facility] [address] [place] [address] [place] Estimated GFR (Non- Am > 60 [facility] Comment on above: Performed By: #### O UTREACH LIPID, CBCNOOUTREACH, OUTREACH CMP #### [facility] [address] [id number] [place] Glucose [Mass/Vol] 101 mg/dL High 70-100 [facility] Comment on above: Result Comment: [place] om Glucose Reference Range is dependent on time and content of last meal. Glucose of more than 200 mg/dL in a nonstressed, ambulatory subject supports the diagnosis of Diabetes Mellitus. ADA recommended reference range Performed By: #### O UTREACH LIPID, CBCNOOUTREACH, OUTREACH CMP #### [facility] [address] [id number] [place] Potassium [Moles/Vol] 4.0 mmol/L Normal 3.5-5.1 [facility] Comment on above: Performed By: #### O UTREACH LIPID, CBCNOOUTREACH, OUTREACH CMP #### [facility] [address] [place] [address] [facility] Protein [Mass/Vol] 7.3 g/dL Normal 6.1-7.9 [facility] Comment on above: Performed By: #### O UTREACH LIPID, CBCNOOUTREACH, OUTREACH CMP #### [facility] [address] [place] [address] [place] Sodium [Moles/Vol] 139 mmol/L Normal 136-146 [facility] Comment on above: Performed By: #### O UTREACH LIPID, CBCNOOUTREACH, OUTREACH CMP #### [facility] [address] [place] [address] [facility] Urea nitrogen [Mass/Vol] 18 mg/dL Normal 9-23 [facility] Comment on above: Performed By: #### O UTREACH LIPID, CBCNOOUTREACH, OUTREACH CMP #### [facility] [address] [place] [address] [place] Lipid Profile Outreachon Cholesterol [Mass/Vol] 178 mg/dL Normal 140-200 [facility] Comment on above: Result Comment: Chol less than 200 mg/dl low risk Chol 201-239 mg/dl borderline risk Chol 240 mg/dl and greater high risk Performed By: #### O UTREACH LIPID, CBCNOOUTREACH, OUTREACH CMP #### [facility] [address] [place] [address] [place] Cholesterol in HDL [Mass/Vol] 38 mg/dL Normal 29-71 [facility] Comment on above: Result Comment: HDL CHOL ATP-III CLASSIFICATION Cardiovascular Risk HDL > or equal to 60 mg/dL LOW HDL < 40 mg/dL HIGH Performed By: #### O UTREACH LIPID, CBCNOOUTREACH, OUTREACH CMP #### [facility] [address] [place] [address] [place] Cholesterol.total/Ch olesterol in HDL [Mass ratio] 4.7 {ratio} Normal <5.0 [facility] Comment on above: Result Comment: PERF ORMED BY: [place] [address] PATHOLOGIST MANAGER OF [employer] KATHY HENDRICKSON M.D. Performed By: #### O UTREACH LIPID, CBCNOOUTREACH, OUTREACH CMP #### [facility] [address] LDL Cholesterol,Calculat ed 102 mg/dL High 0-100 [facility] Comment on above: Result Comment: LDL ATP III CLASSIFICATION LDL less than 100 mg/dL Optimal LDL 100-129 mg/dL Near or above optimal LDL 130-159 mg/dL Borderline high LDL 160-189 mg/dL High LDL greater than 189 mg/dL Very high Performed By: #### O UTREACH LIPID, CBCNOOUTREACH, OUTREACH CMP #### [facility] [address] [place] [address] Triglyceride w/Reflex 188 mg/dL High 35-149 [facility] Comment on above: Result Comment: TRIG ATP III CLASSIFICATION TRIG less than 150 mg/dL Normal TRIG 150-199 mg/dL Borderline high TRIG 200-500 mg/dL High TRIG greater than 500 mg/dL Very high Standard traceable to the Center for Disease Conrtrol and Prevention (CDC) test method. Performed By: #### O UTREACH LIPID, CBCNOOUTREACH, OUTREACH CMP #### [facility] [address] [place], [place] [address] [facility] VLDL CHOLESTEROL 37 mg/dL Normal [facility] Comment on above: Performed By: #### O UTREACH LIPID, CBCNOOUTREACH, OUTREACH CMP #### [facility] [address] [id number] [place] Vital Signs Date Time Vital Sign Value Performing Clinician Alexa vizcaino 07-23-2023 13:30-0500 Body height 182.88 cm Dawit [email or web address] Other [employer] Other 07-23-2023 13:30-0500 Body mass index (BMI) [Ratio] 31.16 kg/m2 [employer] Other [employer] Other 07-23-2023 13:30-0500 Body weight 104.24 kg Dawit Ball Other [employer] Other 07-23-2023 13:30-0500 Diastolic blood pressure 81 mm[Hg] Dawit Ball Other [employer] Other 07-23-2023 13:30-0500 Respiratory rate 12 /min Dawit Ball Other [employer] Other 07-23-2023 13:30-0500 Systolic blood pressure 133 mm[Hg] Dawit Ball Other [employer] Other 04-22-2023 10:00-0500 Body height 182.88 cm Dawit Ball Other [employer] Other 04-22-2023 10:00-0500 Body mass index (BMI) [Ratio] 30.78 kg/m2 Dawit Ball Other [employer] Other 04-22-2023 10:00-0500 Body weight 102.97 kg Dawit Ball Other [facility] Other 04-22-2023 10:00-0500 Diastolic blood pressure 111 mm[Hg] Dawit Ball Other [facility] Other 04-22-2023 10:00-0500 Respiratory rate 12 /min Dawit Ball Other [facility] Other 04-22-2023 10:00-0500 Systolic blood pressure 164 mm[Hg] Dawit Ball Other [facility] Other 02-11-2023 15:16-0400 Body height 182.9 cm Margie Li DO Work Phone: [facility] 02-11-2023 15:16-0400 Body mass index (BMI) [Ratio] 29.84 kg/m2 Margie Li DO Work Phone: [facility] 02-11-2023 15:16-0400 Body weight 99.79 kg Margie Li DO Work Phone: [facility] 01-16-2023 09:46-0400 Body height 182.9 cm Nena Bynum DO Work Phone: [facility] 01-16-2023 09:46-0400 Body mass index (BMI) [Ratio] 29.84 kg/m2 Nena Bynum DO Work Phone: [facility] 01-16-2023 09:46-0400 Body weight 99.79 kg Nena Bynum DO Work Phone: [facility] 01-10-2023 10:00-0400 Body height 182.88 cm Dawit Ball Other [facility] Other 01-10-2023 10:00-0400 Body mass index (BMI) [Ratio] 30.11 kg/m2 Dawit Ball Other [facility] Other 01-10-2023 10:00-0400 Body weight 100.7 kg Dawit Ball Other [facility] Other 01-10-2023 10:00-0400 Diastolic blood pressure 90 mm[Hg] Dawit Ball Other [facility] Other 01-10-2023 10:00-0400 Respiratory rate 12 /min Dawit Ball Other [facility] Other 01-10-2023 10:00-0400 Systolic blood pressure 134 mm[Hg] Dawit Ball Other [facility] Other 11-19-2022 13:38-0400 Body height 182.9 cm Margie Steginsky DO Work Phone: [facility] 11-19-2022 13:38-0400 Body mass index (BMI) [Ratio] 30.24 kg/m2 Margie Steginsky DO Work Phone: [facility] 11-19-2022 13:38-0400 Body weight 101.15 kg Margie Steginsky DO Work Phone: [facility] 10-08-2022 13:20-0400 Body height 182.9 cm Flip Munsona PA-C Work Phone: [facility] 10-08-2022 13:20-0400 Body mass index (BMI) [Ratio] 30.24 kg/m2 Flip Hill PA-C Work Phone: [facility] 10-08-2022 13:20-0400 Body weight 101.15 kg Flip Munsona PA-C Work Phone: [facility] 08-28-2022 13:16-0400 Body height 182.9 cm Margie Steginsky DO Work Phone: [facility] 08-28-2022 13:16-0400 Body mass index (BMI) [Ratio] 30.24 kg/m2 Margie Steginsky DO Work Phone: [facility] 08-28-2022 13:16-0400 Body weight 101.15 kg Margie Steginsky DO Work Phone: [facility] 07-20-2020 14:44-0500 BMI (Body Mass Index) 30.24 kg/m2 Nena Bynum [facility] 07-20-2020 14:44-0500 Body weight 101.15 kg Nena Bynum [facility] 07-20-2020 14:44-0500 Height 182.9 cm Nena [facility] 07-01-2019 09:59-0500 BMI (Body Mass Index) 30.79 kg/m2 Nena Bynum [facility] 07-01-2019 09:59-0500 Body weight 102.97 kg Nena Bynum [facility] 07-01-2019 09:59-0500 Height 182.9 cm Nena [facility] 07-30-2017 11:30-0500 BMI (Body Mass Index) 30.79 kg/m2 Karthik Calloway [facility] Work Phone: 07-30-2017 11:30-0500 Height 182.9 cm Karthik Calloway [facility] Work Phone: 07-30-2017 11:30-0500 Weight 102.97 kg Karthik Calloway [facility] Work Phone: 01-29-2017 12:07-0400 BMI (Body Mass Index) 29.97 kg/m2 Karthik Calloway [facility] Work Phone: 01-29-2017 12:07-0400 Height 182.9 cm Karthik Calloway [facility] Work Phone: 01-29-2017 12:07-0400 Weight 100.25 kg Karthik Calloway [facility] Work Phone: Encounters Encounter Date Encounter Type Care Provider Facility Start: 07-23-2023 End: 07-23-2023 ambulatory Dawit Lorenz Other [facility] Other Start: 07-23-2023 Patient encounter procedure Dawit Lorenz [facility] Start: 07-10-2023 End: 07-10-2023 ambulatory Dawit Lorenz Other [facility] Other Start: 07-10-2023 Telephone encounter Dawit Lorenz [facility] Start: 07-08-2023 End: 07-08-2023 ambulatory Dawit Lorenz Other [facility] Other Start: 07-08-2023 Telephone encounter Dawit Lorenz [facility] Start: 07-07-2023 End: 07-07-2023 ambulatory Dawit Lorenz Other [facility] Other Start: 07-07-2023 Telephone encounter Dawit Lorenz [facility] Start: 06-25-2023 End: 06-25-2023 Orders Only Janet Spangler MA [facility] Comment on above: Status post total kn ee replacement, bilateral (Primary Dx) Start: 06-25-2023 Telephone encounter [facility] Start: 05-07-2023 End: 05-07-2023 ambulatory Dawit Lorenz Other [facility] Other Start: 05-07-2023 Telephone encounter [facility] Start: 04-24-2023 End: 04-24-2023 ambulatory Dawit Lorenz Other [facility] Other Start: 04-24-2023 Telephone encounter [facility] Start: 04-22-2023 End: 04-22-2023 ambulatory Dawit Lorenz Other [facility] Other Start: 04-22-2023 Patient encounter procedure [facility] Start: 04-19-2023 End: 04-19-2023 ambulatory Dawit Lorenz Other [facility] Other Start: 04-19-2023 Telephone encounter [facility] Start: 04-17-2023 End: 04-17-2023 ambulatory Dawit Lorenz Other [facility] Other Start: 04-17-2023 Telephone encounter [facility] Start: 02-11-2023 End: 02-11-2023 Phys/qhp telephone evaluation 5-10 min Margie Li DO Work Phone: [facility] Comment on above: Hallux rigidus of le ft foot (Primary Dx) Start: 02-11-2023 End: 02-15-2023 James Spangler MA [facility] Start: 01-16-2023 End: 01-20-2023 ambulatory DAWIT LORENZ [facility] Start: 01-16-2023 End: 01-16-2023 Office outpatient visit 10 minutes Nena Bynum DO Work Phone: [facility] Comment on above: Status post total kn ee replacement, bilateral (Primary Dx) Start: 01-10-2023 End: 01-10-2023 ambulatory Dawit Lorenz Other [employer] Other Start: 01-10-2023 Patient encounter procedure Dawit [facility] Start: 11-19-2022 End: 11-19-2022 ambulatory DAWIT LORENZ [facility] Start: 11-19-2022 End: 11-19-2022 Office outpatient visit 15 minutes Margie Li DO Work Phone: [facility] Comment on above: Hallux rigidus of le ft foot (Primary Dx) Start: 10-08-2022 End: 10-08-2022 ambulatory DAWIT LORENZ [facility] Start: 10-08-2022 End: 10-08-2022 Office outpatient visit 5 minutes Flip Hill PA-C Work Phone: [facility] Comment on above: Hallux rigidus of le ft foot (Primary Dx); Metatarsalgia, left foot Start: 08-30-2022 Refill Janet Spangler MA [facility] Start: 08-28-2022 End: 09-01-2022 Refill Becca Carrasco Service Worker [facility] Start: 08-28-2022 End: 08-28-2022 Office outpatient new 30 minutes Margie Li DO Work Phone: [facility] Comment on above: Hallux rigidus of le ft foot (Primary Dx); Eaton's metatarsalgia, left Start: 03-19-2022 End: 03-20-[address] NONE LISTED REQUEST Facility: Start: 08-11-2021 Refill Nena spencer DO Work Phone: [facility] Comment on above: Status post total kn ee replacement, bilateral (Primary Dx) Start: 08-11-2020 End: 08-11-2020 Orders Only Ana Todd Work Phone: [facility] Start: 07-20-2020 End: 07-20-2020 Office outpatient visit 10 minutes Nena Bynum Work Phone: [facility] Comment on above: Status post total kn ee replacement, bilateral (Primary Dx) Start: 07-01-2019 End: 07-01-2019 Office outpatient visit 10 minutes Nena Bynum Work Phone: [facility] Comment on above: Status post total kn ee replacement, bilateral (Primary Dx) Start: 07-30-2017 Office/outpatient vi sit, est, level 3 Karthik Calloway Work Phone: [facility] Start: 01-29-2017 End: 01-29-2017 Office outpatient visit 15 minutes Karthik Calloway Work Phone: [facility] Comment on above: 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);Status post total right knee replacement Procedures Date Procedure Procedure Detail Performing Clinician Start: 10-08-2022 Follow-up visit Follow-up [facility] Start: 03-19-[address] JOANNE NGUYEN REQUEST Comment on above: Performed By: #### [facility] #### [facility] [address] [place] [address] Dr. Joni Sanders Screening for malign ant neoplasm of colon Dawit Lorenz Other Plan of Treatment Date Care Activity Detail Author Start: 08-30-2028 Tetanus vaccination Tetanus: Every 10yrs [facility] Start: 02-15-2023 COVID-19 Vaccine ( season) COVID-19 Vaccine ( season) [facility] Start: 02-15-2023 Influenza vaccination [facility] Start: 02-11-2023 End: 02-11-2023 Patient encounter procedure 02/11/2023 1:15 PM EDT Office Visit [facility] [address] [place] [address] Margie Li DO [address] [place] [address] [facility] Start: 01-14-2023 End: 01-14-2023 Patient encounter procedure 01/14/2023 1:15 PM EDT Office Visit [facility] [address] [place] [address] Margie Li, DO [address] [place] [address] [facility] Start: 11-19-2022 End: 11-19-2022 Patient encounter procedure 11/19/2022 1:30 PM EDT Office Visit [facility] [address] [place] [address] Margie Li, DO [address] [place] [address] [facility] Start: 10-08-2022 End: 10-08-2022 Patient encounter procedure 10/08/2022 Office Visit Orthopedic Surgery Margie Li, DO [address] [place] [address] [facility] Start: 02-15-2022 Influenza vaccination Sequential Influenza Vaccine (#1) [facility] Start: 07-05-2021 COVID-19 Vaccine (4 - Booster for Pfizer series) COVID-19 Vaccine (4 - Booster for Pfizer series) [facility] Start: 07-05-2021 COVID-19 Vaccine (4 - Pfizer series) COVID-19 Vaccine (4 - Pfizer series) [facility] Start: 07-05-2021 COVID-19 Vaccine (5 - Booster) COVID-19 Vaccine (5 - Booster) [facility] Start: 02-15-2021 Influenza vaccination Sequential Influenza Vaccine (#1) [facility] Start: 07-01-2020 End: 07-01-2020 Office Visit 07/01/2020 Office Visit Orthopedic Surgery Nena Bynum, DO [address] [place] [address] [phone] [facility] Start: 02-16-2020 Influenza vaccination given Sequential Influenza Vaccine (#1) [facility] Start: 06-30-2019 Ambulatory 06/30/2019 Office Visit Orthopedic Surgery Karthik Calloway MD [address] [place] [address] [phone] [facility] Start: 02-15-2019 Influenza vaccination given SEQUENTIAL INFLUENZA VACCINE (#1) [facility] Start: 10-25-2018 Administration of herpes zoster vaccine Zoster Vaccines (2 of 2) [facility] Start: 07-30-2017 Ambulatory 07/30/2017 Office Visit Orthopedic Surgery Karthik Calloway MD [address] [facility] [address] [place] [address] [phone] [facility] Start: 02-15-2017 Influenza vaccination SEQUENTIAL INFLUENZA VACCINE (#1) [facility] Work Phone: Start: 02-15-2017 SEQUENTIAL INFLUENZA VACCINE (#1) SEQUENTIAL INFLUENZA VACCINE (#1) [facility] Work Phone: Start: 2016 Fall risk assessment Falls Risk Assessment [facility] Start: 2016 Pneumococcal vaccination PNEUMOCOCCAL VACCINE AGE 65+ (1 of 2 - PCV13) [facility] Work Phone: Start: 2016 PNEUMOCOCCAL VACCINE AGE 65+ (1 of 2 - PCV13) PNEUMOCOCCAL VACCINE AGE 65+ (1 of 2 - PCV13) [facility] Work Phone: Start: 2011 Zoster vacc, sc ZOSTER VACCINE [facility] Work Phone: Start: 2001 Screening for malignant neoplasm of colon [facility] Start: 1969 Hepatitis C antibody, confirmatory test Hepatitis C Screening [facility] Start: 1969 Hepatitis C screening Hepatitis C Screening [facility] Start: 1967 COVID-19 Vaccine (1 of 2) COVID-19 Vaccine (1 of 2) [facility] Start: 1963 Adolescent depression screening assessment Depression Screening (PHQ9) [facility] Start: 1963 Depression screening using PHQ-9 (Patient Health Questionnaire 9) score Depression Screening (PHQ-2/9) [facility] Start: 1956 COVID-19 Vaccine (1) COVID-19 Vaccine (1) [facility] Start: 1954 History and physical examination, annual for health maintenance Wellness Visit [facility] Start: 1951 Colonoscopy COLONOSCOPY [facility] Work Phone: Start: 1951 Fall risk assessment Falls Risk Assessment [facility] Start: 1951 Hepatitis C antibody, confirmatory test HEPATITIS C SCREENING [facility] Start: 1951 Prostate specific antigen measurement PSA Level [facility] Start: 1951 Screening for malignant neoplasm of colon [facility] Start: 1951 TETANUS EVERY 10 YR TETANUS EVERY 10 YR [facility] Work Phone: Start: 1950 End: 1951 HEPATITIS C SCREENING HEPATITIS C SCREENING [facility] Work Phone: Start: 1950 Screening colonoscopy COLONOSCOPY [facility] Work Phone: Start: 1950 End: 1951 Tetanus vaccination [facility] Immunizations Immunization Date Immunization Notes Care Provider Laurie bernal 05-09-2020 influenza virus vaccine, split virus (incl. purified surface antigen) Dawit Lorenz Other [facility] Other 08-30-2018 tetanus and diphther ia toxoids, adsorbed, preservative free, for adult use (5 Lf of tetanus toxoid and 2 Lf of diphtheria toxoid) Dawit Lorenz Other [facility] Other 06-04-2018 tetanus and diphther ia toxoids, adsorbed, preservative free, for adult use (5 Lf of tetanus toxoid and 2 Lf of diphtheria toxoid) Dawit Lorenz Other [facility] Other 02-03-2018 pneumococcal polysaccharide vaccine, 23 valent Dawit Lorenz Other [facility] Other 11-26-2016 pneumococcal conjuga te vaccine, 13 valent Dawit Lorenz Other [facility] Other Payers Date Payer Category Payer Medicare A[employer] MANAGED [place] DICARE AETNA MEDICARE PLAN (PPO) [id number] 2016-Present [id number] 2016 Medicare AETNA MANAGED [place] DICARE AETNA MEDICARE PLAN (PPO) [id number] 2016-Present [id number] 2016 Medicare [id number] 1959 Medicare [id number] 1959 Self-pay [id number] 1951 Unknown [id number] 1950 Unknown [id number] 1950 Unknown [id number] 1950 Unknown [id number] 1950 Unknown [id number] 1951 Unknown [id number] 1951 Unknown [id number] 1950 Unknown [id number] 1950 Unknown [id number] 1950 Unknown [id number] 1950 Unknown [id number] Medicare [id number] Unknown [id number] Social History Date Type Detail Facility Start: 07-30-2017 End: 08-28-2022 Tobacco smoking status UTIS Never smoker [facility] Work Phone: Start: 1950 Sex Assigned At Not on file [facility] [employer] Work Phone: Start: 07-01-2019 End: 02-11-2023 Alcohol intake Current drinker of alcohol (finding) [facility] Start: 07-20-2020 End: 08-28-2022 Tobacco use and exposure Never used [facility] Start: 08-18-2022 End: 10-08-2022 Exposure to SARS-CoV-2 (event) Not sure [facility] Start: 08-28-2022 End: 02-11-2023 History of Social function [facility] Start: 08-28-2022 End: 02-11-2023 Tobacco use panel [facility] Medical Equipment Procedure Code Equipment Code Equipment Origin al Text Equipment Identifier Dates Cement 1 X 40 [place] Bone Single - [id number] Start: 08-23-2014 Stem Short Cemen prerna Persona - [id number] Start: 08-23-2014 Stem Sz F Tib 5d eg Nonpor Lt Persona - [id number] Start: 08-23-2014 Femoral Sz9 Lt N rw Ps Cmt Ccr Persona - [id number] Start: 08-23-2014 Patella 32mm All Poly Persona - [id number] Start: 08-23-2014 Articular Surf E f 6-9 14mm Lt Ps Vivacit-E Persona - [id number] Start: 08-23-2014 Stem Short Cemen prerna Persona - [id number] Start: 06-25-2016 Patella 32mm All Poly Vivacit-E - [id number] Start: 06-25-2016 Articular Surf 1 4mm 6-9ef Rt Cps Ve Persona - [id number] Start: 06-25-2016 Simplex Hv With Gentamicin Cement Start: 06-25-2016 Stem Sz F Tib 5d eg Nonpor Rt Persona - [id number] Start: 06-25-2016 Femoral Sz9 Rt N rw Ps Cmt Ccr Persona - [id number] Start: 06-25-2016 Cement 1 X 40 [place] Bone Single - [id number] Start: 08-23-2014 Stem Short Cemen prerna Persona - [id number] Start: 08-23-2014 Stem Sz F Tib 5d eg Nonpor Lt Persona - [id number] Start: 08-23-2014 Femoral Sz9 Lt N rw Ps Cmt Ccr Persona - [id number] Start: 08-23-2014 Patella 32mm All Poly Persona - [id number] Start: 08-23-2014 Articular Surf E f 6-9 14mm Lt Ps Vivacit-E Persona - [id number] Start: 08-23-2014 Stem Short Cemen prerna Persona - [id number] Start: 06-25-2016 Patella 32mm All Poly Vivacit-E - [id number] Start: 06-25-2016 Articular Surf 1 4mm 6-9ef Rt Cps Ve Persona - [id number] Start: 06-25-2016 Simplex Hv With Gentamicin Cement Start: 06-25-2016 Stem Sz F Tib 5d eg Nonpor Rt Persona - [id number] Start: 06-25-2016 Femoral Sz9 Rt N rw Ps [facility] Ccr Persona - [id number] Start: 06-25-2016 Cement 1 X 40 [place] Bone Single - [id number] Start: 08-23-2014 Stem Short Cemen prerna Persona - [id number] Start: 08-23-2014 Stem Sz F Tib 5d eg Nonpor Lt Persona - [id number] Start: 08-23-2014 Femoral Sz9 Lt N rw Ps Cmt Ccr Persona - [id number] Start: 08-23-2014 Patella 32mm All Poly Persona - [id number] Start: 08-23-2014 Articular Surf E f 6-9 14mm Lt Ps Vivacit-E Persona - [id number] Start: 08-23-2014 Stem Short Cemen prerna Persona - [id number] Start: 06-25-2016 Patella 32mm All Poly Vivacit-E - [id number] Start: 06-25-2016 Articular Surf 1 4mm 6-9ef Rt Cps Ve Persona - [id number] Start: 06-25-2016 Simplex Hv With Gentamicin Cement Start: 06-25-2016 Stem Sz F Tib 5d eg Nonpor Rt Persona - [id number] Start: 06-25-2016 Femoral Sz9 Rt N rw Ps Cmt Ccr Persona - [id number] Start: 06-25-2016 Cement 1 X 40 [place] Bone Single - [id number] Start: 08-23-2014 Stem Short Cemen prerna Persona - [id number] Start: 08-23-2014 Stem Sz F Tib 5d eg Nonpor Lt Persona - [id number] Start: 08-23-2014 Femoral Sz9 Lt N rw Ps Cmt Ccr Persona - [id number] Start: 08-23-2014 Patella 32mm All Poly Persona - [id number] Start: 08-23-2014 Articular Surf E f 6-9 14mm Lt Ps Vivacit-E Persona - [id number] Start: 08-23-2014 Stem Short Cemen prerna Persona - [id number] Start: 06-25-2016 Patella 32mm All Poly Vivacit-E - [id number] Start: 06-25-2016 Articular Surf 1 4mm 6-9ef Rt Cps Ve Persona - [id number] Start: 06-25-2016 Simplex Hv With Gentamicin Cement [id number] Start: 06-25-2016 Stem Sz F Tib 5d eg Nonpor Rt Persona - [id number] Start: 06-25-2016 Femoral Sz9 Rt N rw Ps Cmt Ccr Persona - [id number] Start: 06-25-2016 Clinical Notes 12-15-2020 to 07-23-2023 Note Date & Type Note Facility 07-23-2023 Evaluation note Encounter Date Diagnosis Assessment Notes Jul, Subacute cough (ICD-10 - R05.2) Continue treatment of any PND and GERD. Continue Mucinex DM. Trial of Prednisone and Albuterol. Jul, Primary hypertension (ICD-10 - I10) This patient is instructed to consume a healthy, low-fat, low-salt diet. They are also encouraged to continue exercise to achieve/maint ain a normal BMI. [facility] Other 01-24-2024 Evaluation note* Encounter Date Diagnosis Assessment Notes Treatment Notes Treatment Clinical Notes Jun, Subacute cough (ICD-10 - R05.2) [facility] Other 01-21-2024 Evaluation note* Encounter Date Diagnosis Assessment Notes Treatment Notes Treatment Clinical Notes Jun, Subacute cough (ICD-10 - R05.2) [facility] Other 01-09-2024 Evaluation note* Encounter Date Diagnosis Assessment Notes Treatment Notes Treatment Clinical Notes Jun, Primary hypertension (ICD-10 - I10) [facility] Other 11-21-2023 Evaluation note* Encounter Date Diagnosis Assessment Notes Treatment Notes Treatment Clinical Notes Apr, Acute bronchitis due to other specified organisms (ICD-10 - J20.8) [facility] Other 11-08-2023 Evaluation note* Encounter Date Diagnosis Assessment Notes Treatment Notes Treatment Clinical Notes Apr, Primary hypertension (ICD-10 - I10) [facility] Other 11-06-2023 Evaluation note* Encounter Date Diagnosis Assessment Notes Treatment Notes Treatment Clinical Notes Apr, Medicare annual wellness visit, subsequent (ICD-10 - Z00.00) Personalized health advice was given to the beneficiary including a written plan for screenings discussed and provided. Advanced care planning reviewed and/or information given as requested. Additional counseling was provided here today in regards to, [ ]. The above visit was performed by [ ], under direct supervision of [ ]. Document reviewed and amended by provider signed below. Apr, Gastro-esophageal reflux disease with esophagitis, without bleeding (ICD-10 - K21.00) Diet instructions: Smaller portions, avoid eating and laying flat, avoid eating or drinking prior to bedtime. Weight loss. Apr, Hyperlipidemia type II (ICD-10 - E78.01) Instructed on diet and exercise with continued statin therapy.Discussed the beneficial effects of lowering cholesterol in reducing the risk for cerebrovascular and cardiovascular disease. Apr, Elevated BP without diagnosis of hypertension (ICD-10 - R03.0) This patient is instructed to consume a healthy, low-fat, low-salt diet. They are also encouraged to continue exercise to achieve/maintain a normal BMI. Patient is instructed on home BP measurements: - rest for 5 minutes w/o talking- positioned w/ feet on floor and arm supported- average best 2/3 readings w/ goal < 135/85 _update office in couple days Apr, Other obesity due to excess calories (ICD-10 - E66.09) This patient has been instructed on a low-fat, high-fiber diet. They are instructed to reduce calories, portion sizes and snacks. It is recommended that they exercise for 30 minutes, 3-5 times weekly. Apr, Body mass index [BMI] 30.0-30.9, adult (ICD-10 - Z68.30) Apr, Screening PSA (prostate specific antigen) (ICD-10 - Z12.5) [place] PSA [facility] Other 11-01-2023 Evaluation note* Encounter Date Diagnosis Assessment Notes Treatment Notes Treatment Clinical Notes Apr, Screening PSA (prostate specific antigen) (ICD-10 - Z12.5) Apr, Hyperlipidemia type II (ICD-10 - E78.01) Apr, Gastro-esophageal reflux disease with esophagitis, without bleeding (ICD-10 - K21.00) Apr, Fatigue, unspecified type (ICD-10 - R53.83) Apr, High risk medication use (ICD-10 - Z79.899) [facility] Other 08-28-2023 History of Present illness Narrative* Margie Li, - 02/11/2023 2:00 PM EDT Telehealth Visit Via Phone Call Patient: Bryan Harris Date of : 1950 (72 y.o. male) Patient Patient Location: [address] [place] [address] [place] [address] Provider Location: [facility] I discussed risks, benefits and alternatives of a telephone visit telemedicine consultation with the patient (and any accompanying persons) including the risks that the patient's personal health details and medical records will be discussed over real-time, synchronous, interactive audio technology,the visit will not be recorded without the express consent of both the provider and the patient, and that there are inherent diagnostic limitations compared to [id number] evaluations. We elected toproceed with the telephone visit telemedicine consultation. HPI: Bryan is on the phone to discuss the left foot due to the COVID19 pandemic. The patient but the custom orthotics in the golf shoes. He finds them helpful. He found the injection extremely helpful. He still getting relief from her injection back in early November. He uses Hoka carbon X 90% of time, which are also helpful for his foot pain. Overall, he is about 75% improved. The following portions of the patient's history were reviewed and updated as appropriate: allergies, current medications, past family history, past medical history, past social history, past surgicalhistory, and problem list. Assessment: Left hallux rigidus Left metatarsalgia Plan: The patient is currently doing well with the custom orthotics, first MTP joint injection, Hoka shoes. We decided to leave the next office visit open-ended. I told him to contact the office should he wish to adjust his treatment plan or want to have another injection. He inquired about a refill on his meloxicam. He typically gets this from Dr. Bynum. However, I am happy to provide him with a refill at today's visit. I will see him back as needed. Again, I told him to call the office with any questions or concerns in the future. Radiographs next visit: None Time Spent: I have spent 5-10 minutes with the patient discussing current HPI and treatment plan. Margie Li DO Orthopedic Surgeon, Fellowship Trained in Foot and Ankle Surgery Note: To expedite correspondence this note was generated by [employer] voice recognition software. Somegrammatical or spelling errors may occur using the system. documented in this [id number] History of Present illness Narrative* Nena Bynum, - 01/16/2023 10:35 AM EDT [facility] [address] [place] [id number] Patient Name: Bryan Harris Patient Age: 72 y.o. Patient : 1950 Date: 01/16/23 Progress Note HPI: Bryan Harris is a 72 y.o. male who is status post bilateral total knee arthroplasty performed byDr. Calloway. Patient has been doing well but states recently he noticed a knot on the outsideof his left knee that from time to time has been giving him aches and pains. He denies any history of trauma or injury to this knee. He has been using Voltaren topical gel with some relief of the pain. Patient was concerned and presents to the office today to be evaluated. Patient History: Past Medical History: Diagnosis Date Allergic rhinitis Arthritis Basal cell carcinoma of left shoulder GERD (gastroesophageal reflux disease) Gout no symptoms for years per pt History of colonoscopy History of stress test 2009 Baseline due to family h/o CAD- [place] Hyperlipidemia PONV (postoperative nausea and vomiting) Past Surgical History: Procedure Laterality Date ARTHROPLASTY KNEE TOTAL Left 08/23/2014 Procedure: LEFT TOTAL KNEE ARTHROPLASTY; Surgeon: Karthik Calloway MD; Location: [facility] OR; Service: ARTHROPLASTY KNEE TOTAL Right 06/25/2016 Procedure: RIGHT TOTAL KNEE ARTHROPLASTY ; Surgeon: Karthik Calloway MD; Location: [facility] OR; Service: BASAL CELL CARCINOMA EXCISION Left 11/2014 shoulder ORTHOPEDIC SURGERY Left 2010 knee scope ORTHOPEDIC SURGERY Right hand surgery Social History Socioeconomic History Marital status: Tobacco Use Smoking status: Never Smokeless tobacco: Never Substance and Sexual Activity Alcohol use: Yes Comment: occasionally Drug use: No Family History Problem Relation Age of Onset Heart disease Father Surgical complications Neg Hx Anesthesia problems Neg Hx Clotting disorder Neg Hx Deep vein thrombosis Neg Hx Pulmonary embolism Neg Hx Medications: Current Outpatient Medications Medication Sig Dispense Refill allopurinol (ZYLOPRIM) 300 MG tablet Take 1 (one) tablet (300 mg total) by mouth at bedtime . ASCORBATE CALCIUM (VITAMIN C ORAL) Take 1 tablet by mouth every morning . aspirin 81 MG EC tablet Take 1 (one) tablet (81 mg total) by mouth at bedtime . atorvastatin (LIPITOR) 10 MG tablet Take 1 (one) tablet (10 mg total) by mouth nightly . BIOTIN ORAL Take 1 tablet by mouth every morning . diclofenac sodium (Voltaren) 1 % Gel Apply 2 (two) g topically 4 (four) times a day Apply 2 grams to affected area up to 4 times a day as needed PRN pain. . 300 g 2 fluorouraciL (EFUDEX) 5 % cream GUAIFENESIN/DEXTROMETHORPHAN (MUCINEX DM ORAL) Take by mouth. loratadine (CLARITIN) 10 mg tablet Take 1 (one) tablet (10 mg total) by mouth every evening . meloxicam (MOBIC) 15 MG tablet Take 1 (one) tablet (15 mg total) by mouth as needed . multivitamin (THERAGRAN) per tablet Take 1 (one) tablet by mouth every morning . omeprazole (PRILOSEC) 20 MG capsule Take 1 (one) capsule (20 mg total) by mouth every morning . polycarbophil (FIBERCON) 625 mg tablet Take 1 (one) tablet (625 mg total) by mouth every morning . vit A-vit C-vit F-lcga-apzrid [id number] zozi-ew-ecmr Tab Take 1 tablet by mouth every morning . ciprofloxacin HCl (CILOXAN) 0.3 % ophthalmic solution INSTILL 1 DROP INTO AFFECTED EYE 4 TIMES DAILY ketorolac (ACULAR) 0.5 % ophthalmic solution INSTILL 2 DROPS INTO AFFECTED EYE TWICE DAILY prednisoLONE acetate (PRED FORTE) 1 % ophthalmic suspension INSTILL 1 DROP INTO AFFECTED EYE INTO AFFECTED EYE 4 TIMES DAILY DIRECTED tamsulosin (FLOMAX) 0.4 mg capsule Take 1 (one) capsule (0.4 mg total) by mouth daily . No current facility-administered medications for this visit. Facility-Administered Medications Ordered in Other Visits Medication Dose Route Frequency Provider Last Rate Last Admin triamcinolone acetonide (KENALOG-40) injection 80 mg 80 mg Intra-articular Kyle Domingo PA-C 80 mg at 03/13/16 1052 Allergies: Allergies Allergen Reactions Tramadol Shortness Of Breath Percocet [Oxycodone-Acetaminophen] Other (See Comments) Urinary retention Hallucinations ROS: Review of Systems Physical Exam: Ht 6' Wt 99.8 kg (220 lb) BMI 29.84 kg/m Physical Exam Ortho Exam Patient ambulates with a normal gait without assistive device. Left knee: Incision well healed with no evidence of erythema, warmth or drainage. Negative effusion. ROM: 0 - 120. Palpable bony nodule near the lateral portion of his patella that is not tender to touch. No evidence of varus/valgus instability or midflexion instability. Compartments soft and compressible. Calf soft and nontender, negative Amy's sign. Sensation intact to light touch saphenous, sural, tibial, superficial peroneal and deep peroneal nerves. Palpable dorsalis pedis and posterior tibialis pulses. Imaging: X-rays of the left knee from [facility] taken today are reviewed. My personal interpretation is they demonstrate well aligned components in good overall alignment with no interval change from most recent imaging. Although the patella does track well within the trochlear groove it is angled laterally. There is also an evident bony nodule lateral to the patella that has been stable since 2020. There are no findings of fracture, significant osteolysis or loosening. Assessment: Bryan Harris is a 72 y.o. male status post bilateral total knee arthroplasty with left knee pain Plan: I did reassure the patient that the bony nodule within the patellar space has been stable since 2019. On history, physical exam and imaging his knees are otherwise doing well and there is no worrisome issues at this time. We will continue activities as tolerated. He will continue activities as tolerated. Patient was instructed to continue anti-inflammatory treatments that he has been using with relief. We will see the patient back in the office for his next annual appointment. I have answered all of the patient's questions and concerns today. Patient verbalized understandingof all instructions provided and is in agreement with the current course of treatment. Patient was instructed to call the office if they have any other questions or concerns regarding their care. Nena Bynum Note: To expedite correspondence this note was generated by [employer] voice recognition software. Somegrammatical or spelling errors may occur using the system. documented in this [id number] Evaluation note* Encounter Date Diagnosis Assessment Notes Treatment Notes Treatment Clinical Notes Dec, Laceration of scalp, initial encounter (ICD-10 - S01.01XA) Cleanse scalp w/ soap and water [employer] Other 06-05-2023 History of Present illness Narrative* Margie Li, - 11/19/2022 1:56 PM EDT 11/19/22 Bryan Harris 1950 HISTORY: The patient returns today for evaluation of the left foot. He has pain along the plantar aspect of the lesser metatarsals. He finds the metatarsal pad helpful. Overall, he reports minimal improvement. He purchased a pair of Hoka shoes. He has not been stretching. The Voltaren gel is minimally helpful. PAST MEDICAL HISTORY: The patient's Medications, Allergies, Past Surgical History, Medical History, Family History and Social History were reviewed and can be found in their online medical record. PHYSICAL EXAM: Ht 6' Wt 101.2 kg (223 lb) BMI 30.24 kg/m General: Patient is well developed, well nourished, and in no apparent distress. Appropriate mood and affect. Respiratory: No acute respiratory distress. No stridor. Cardiovascular: Extremities warm and perfused. No clubbing or cyanosis. Musculoskeletal: Brisk capillary refill is intact. Sensory is grossly intact to light touch. The skin is intact. Positive grind test. There is about 5 degrees of passive motion through the first MTP joint. There is tenderness over the first MTP joint. There is no significant tenderness over the lesser MTP joints at today's visit. There are some lesser toe deformities noted. Upon standing, the left great toe does not apparently international marketing executive the ground. IMAGING: Please see dictated report. ASSESSMENT: Left hallux rigidus Left metatarsalgia PLAN: I performed a left first MTP joint injection at today's visit. Please see separate procedure note. I recommended that we proceed with custom orthotics with a Eaton's extension, built-in metatarsal pad. [facility] to [facility] orth[facility] We discussed the fact that he would have to be nonweightbearing following the procedure. Thepatient would like to hold off on any surgery at today's visit. We will see him back in 6 weeks. Radiographs next visit: None Margie Li DO Orthopedic Foot and Ankle Surgeon To expedite correspondence, this note was generated by [employer] voice recognition software. Some grammatical or spelling errors may occur using this system. documented in this [id number] History of Present illness Narrative* Flip Hill PA-C - 10/08/2022 2:36 PM EDT 10/08/22 Bryan Harris 1950 HISTORY: Bryan returns today for re-evaluation of his left foot. He is doing well. He has been using the metatarsal pad, Eaton's extension, and has been wearing the Hoka carbon X shoes. He is also using the Voltaren gel, which seems to help. He admits that he has not really been stretching the calves. Hereports around 30% relief in his pain with the above measures. He admits that he is still adjusting to the new shoes. He is still has some pain on the bottom of the forefoot, which he notices most after having to walk on uneven ground at work. At its worst, he rates his pain at a 7-8 out of 10. He denies numbness or tingling. PHYSICAL EXAM: Ht 6' Wt 101.2 kg (223 lb) BMI 30.24 kg/m Lower Extremity Sensory is grossly intact to light touch throughout the foot. Toes are pink and well-perfused. Capillary refill is <2 seconds. Distal pulses are palpable. No posterior calf pain with squeeze of the calf. Tenderness over the first metatarsophalangeal joint with localized edema in this region. Positive grind test. IMAGING: None obtained this visit ASSESSMENT: Left hallux rigidus Left metatarsalgia PLAN: Bryan has been wearing the metatarsal pad, Eaton's extension, as well as wearing the Hoka carbonX shoes. He notes ~30% relief in his pain. I do think that he would benefit from stretching the calves to help offload the forefoot. I offered to place an order for formal physical therapy. However, he does not have the time in his schedule to attend formal therapy and so he will plan to be more diligent about stretching the calves at home. He was provided with a handout for stretching exercises today. It sounds like he is still adjusting to everything. I explained that he does not have to wearthe Eaton's extension along with the Hoka carbon X shoes, as they both function to splint the arthritic joint. He can wear the Eaton's extension in his work shoes. We briefly discussed performing a steroid injection into the first MTP joint at the next visit. We will plan to see him back in 6 weeks to see how he is doing. X-Rays next visit: Views: None WB Status: N/A Flip Hill PA-C Orthopedic Foot and Ankle Surgery To expedite correspondence, this note was generated by [employer] voice recognition software. Some grammatical or spelling errors may occur using this system. documented in this [id number] History of Present illness Narrative* Margie Li, DO - 08/28/2022 1:46 PM EDT 08/28/22 Bryan Harris 1950 HISTORY: Bryan is a 72 y.o. year old male that present today with bilateral foot and ankle pain. Related complaints of left side is more symptomatic than the right. Reportedly old fractures involving the great toe in remote past. PAST MEDICAL HISTORY: The patient's Medications, Allergies, Past Surgical History, Medical History, Family History and Social History were reviewed and can be found in their online medical record. PHYSICAL EXAM: Ht 6' Wt 101.2 kg (223 lb) BMI 30.24 kg/m General: Patient is well developed, well nourished, and in no apparent distress. Appropriate mood and affect. Respiratory: No acute respiratory distress. No stridor. Cardiovascular: Extremities warm and perfused. No clubbing or cyanosis. Musculoskeletal: Brisk capillary refill is intact. Sensory is grossly intact to light touch. The skin is intact. Positive grind test. There is about 5 degrees of passive motion through the first MTP joint. There is tenderness over the first MTP joint. There is no significant tenderness over the lesser MTP joints at today's visit. There are some lesser toe deformities noted. Upon standing, the left great toe does not apparently international marketing executive the ground. IMAGING: Please see dictated report. ASSESSMENT: Left hallux rigidus Left metatarsalgia PLAN: I recommended Voltaren gel for the great toe. I recommended either a Eaton's extension versus Hokacarbon X shoes. I recommended stretching daily. I provided him a stretching handout. I placed a metatarsal pad for the metatarsalgia. I will see him back in 6 weeks to see how he is doing. All questions were answered. We can consider custom orthotics in the future. Radiographs next visit: None Margie Li DO Orthopedic Foot and Ankle Surgeon To expedite correspondence, this note was generated by [employer] voice recognition software. Some grammatical or spelling errors may occur using this system. documented in this [id number] NoteHNO ID: [id number] Author: Rebecca Ivey MD Service: ? Author Type: Physician Type: Progress Notes Filed: 12/15/2020 8:14 PM Note Text: COLORECTAL SURGERY December 15, 2020 Bryan Harris 70 year old This consult was requested by and my final recommendations will be communicated to the requesting health care provider by way of the shared medical record for internal providers or letter via the [employer] for external providers. Chief Complaint: hemorrhoids History of Present Illness: Bryan Harris is a 70 year old male presents to the office with hemorrhoids. Colonoscopy 12/07/20: Normal scope. He reports he often has severe rectal bleeding. It can be quite significant and he often has stains in his underwear. He does not have to strain significantly for bowel movements typically No past medical history on file. No past surgical history on file. No current outpatient medications on file. No current facility-administered medications for this visit. ALLERGIES Not on File No family history on file. Social History Tobacco Use - Smoking status: Not on file Substance Use Topics - Alcohol use: Not on file - Drug use: Not on file Physical Exam: There were no vitals taken for this visit. General Appearance: Well appearing, alert, in no acute distress, well-hydrated, well nourished. Anorectal: External exam reveals no lesions. Digital rectal exam reveals no gross blood or massses Roller Inspector present: Yes, Carter Nunez Anoscopy: The patient was placed in chest-knee position. After digital exam with a lubricated finger, the scope was easily inserted. Moderately enlarged right posterior, right anterior and left lateral internal hemorrhoids were noted. Otherwise normal mucosa was noted. Anoscopy completed. Preoperative diagnosis: First to second degree hemorrhoids. Procedure: Anoscopy, rubber band ligation of hemorrhoids. Postoperative diagnosis: Same Indications: This 70 year old was found to have internal hemorrhoids that were not suitable for conservative management. Description of procedure: The patient was placed in the chest-knee position. A time out was completed. A digital rectal exam was performed. A lubricated anoscope was inserted into the anal canal. The three hemorrhoidal pedicles were identified and the redundant rectal mucosa just above the largest internal hemorrhoids (left lateral and right anterior) suctioned. Using the applicator, 2 rubber bands were placed around the tissue and were noted to be in good position. The mucosa was inspected for bleeding prior to withdrawal of the anoscope. The patient tolerated the procedure well with no excessive pain. Assessment Assessment and Plan: Bryan Harris is a 70 year old male with bleeding internal hemorrhoids. We talked about psyllium fiber supplementation as well as increasing water intake. We talked about good stool hygiene. We performed rubber band ligation of the right anterior and left lateral internal hemorrhoids. If the bleeding is persistent he will return to see me for consideration of repeat banding versus THD. Medical Decision Making: Data Reviewed: - Tests AND Documents Reviewed/ordered: Review of prior notes from Dr. Sales - Review of Labs: CBC, BMP - Review of Procedures / Tests: Colonoscopy Risk of morbidity, mortality and/or complications of treatment plan: [facility] Diagnosis Status post total knee replacement, bilateral- Primary documented in this encounter [facility] note* Diagnosis Hallux rigidus of left foot- Primary Eaton's metatarsalgia, left documented in this encounter [facility] note* Diagnosis Hallux rigidus of left foot- Primary Metatarsalgia, left foot documented in this encounter [facility] note* Diagnosis Hallux rigidus of left foot- Primary documented in this encounter [facility] note* Diagnosis Status post total knee replacement, bilateral- Primary documented in this encounter [facility] note* Diagnosis Hallux rigidus of left foot- Primary documented in this encounter [facility] noteNo [employer] Other Evaluation note* Diagnosis Status post total knee replacement, bilateral- Primary documented in this encounter [facility] general Narrative - Reported* Type Description Date Medical History 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 Medical History Benign prostatic hyp erplasia with lower urinary tract symptoms Medical History Hyperlipidemia type II Medical History Gastro-esophageal re flux disease with esophagitis, without bleeding Surgical History both knee replaced Surgical History hand surgery Hospitalization History SEE ABOVE [employer] Other Assessments Diagnosis Primary osteoarthritis of ri ght knee - Primary Status post total right knee replacement Diagnosis Primary osteoarthritis of ri ght knee - Primary Status post total right knee replacement Diagnosis Status post total knee replacement, bilateral Diagnosis Status post total knee replacement, bilateral- Primary History of Present Illness * Karthik Calloway MD - 01/29/2017 12:04 PM EDT Formatting of this note may be different from the original. [facility] [address] [place] [address] [address] [id number] Patient Name: Bryan Harris Patient Age: 66 y.o. Patient : 1950 Date: 01/29/17 Progress Note Initial Visit Chief Complaint: No chief complaint on file. History of Present Illness: Bryan Harris is a 66 y.o. male who is 7 months postop from a right total Knee surgery. Review of Systems: Review of Systems Constitutional: Negative for chills and fever. Respiratory: Negative for cough, shortness of breath and wheezing. Cardiovascular: Negative for chest pain, palpitations and leg swelling. Gastrointestinal: Negative for abdominal pain, constipation, diarrhea, nausea and vomiting. Genitourinary: Negative for dysuria, frequency and hematuria. Musculoskeletal: Negative for arthralgias, back pain, gait problem, joint swelling and myalgias. Skin: Negative for color change, pallor, rash and wound. Neurological: Negative for dizziness, seizures, syncope, light-headedness and headaches. Hematological: Negative. Physical Exam: There were no vitals taken for this visit. Ortho Exam right Knee Erythema: No Effusion: Negative Tenderness: None Incision: Healed well Range of Motion: Extension: 0 Flexion: 120 Anterior Drawer: Negative Posterior Drawer: Negative Midflexion Instability: Negative Posterior Tib and Dorsalis Pedis Pulses: 2+ Lower Extremity Edema: Negative left Knee Erythema: No Effusion: Negative Tenderness: None Incision: Healing well Range of Motion: Extension: 0 Flexion: 120 Anterior Drawer: Negative Posterior Drawer: Negative Midflexion Instability: Negative Posterior Tib and Dorsalis Pedis Pulses: 2+ Lower Extremity Edema: Negative The following portions of the patient's history were reviewed and updated as appropriate: allergies, current medications, past family history, past medical history, past social history, past surgicalhistory and problem list. Xrays: X-rays of bilateral knees demonstrate Persona knees on both knees in excellent position and alignment without evidence of interface abnormalities, except in the kneecap on the left. We will talk moreabout that on the skyline view. The alignment looks great. No progressive radiolucencies are seen in the femur and the tibial implant. Patella tracks great on both knees, but on the right, on the lateral, I can see how he has a slight avulsion fracture distally and then on the lateral view, I can see a little bit of lucency starting, meaning that he is beginning to loosen that kneecap. That does not mean it is ever going to completely loosen because there is scar around it as well, but it meanshe should definitely not be bending it past 90 when he does not need to so sitting with the legs out just slightly, a little bit less than what he is wants to do, a little bit less than 90, and also no getting down on his hands and knees. Otherwise things look great. I am not going to x-ray him foranother 2 years, but if something should bother him like this I want to come in and see him sooner, but I do not see any evidence of fracture. That little piece that avulsed off, that was a long timeago because it is smooth, so that is nothing he did acutely with the extra activity he did. Also, the fact that it has improved is why it is most likely not something like that because it would take a lot longer to improve if it was. Plan: SNOMED CT(R) 1. Primary osteoarthritis of right knee OSTEOARTHRITIS OF KNEE 2. Status post total right knee replacement HISTORY OF TOTAL KNEE ARTHROPLASTY No orders of the defined types were placed in this encounter. No Follow-up on file. Narrative: So other than the modification in his activities, I am going to have him sit with the knees just slightly out. Also, no more kneeling. And as far as the medicines go, even though his creatinine is fantastic, since he is on another medicine that has a definite incidence of increasing problems with the kidneys, I am going to cut him down to the 7.5 dose, and maybe he just takes it when he is going to go golfing, the night before and the day of twice a day. I do not mind him discontinuing it completely. He just has to stay functional and that is the big problem with discontinuing completely. Overall the knees look good, a little bit more maybe swelling on the right. That one was pretty swollenafter surgery and it has taken a while to go down, but his knees are looking good, doing well. Activities as tolerated, except things that bother it, like the moving is an example, though any time you do a lot of something it might not tell you till the next day, and then that might just be that heneeds to get Aleve then for a week and help with the inflammation and swelling, and ice it a littlebit, but he will try to avoid things like that, that are a little bit excessive. Karthik Calloway MD in this encounter* Karthik Calloway MD - 01/29/2017 12:04 PM EDT Formatting of this note may be different from the original. [facility] [address] [place] [address], [facility] [phone] [address] Patient Name: Bryan Harris Patient Age: 66 y.o. Patient : 1950 Date: 01/29/17 Progress Note Initial Visit Chief Complaint: No chief complaint on file. History of Present Illness: Bryan Harris is a 66 y.o. male who is 7 months postop from a right total Knee surgery. Review of Systems: Review of Systems Constitutional: Negative for chills and fever. Respiratory: Negative for cough, shortness of breath and wheezing. Cardiovascular: Negative for chest pain, palpitations and leg swelling. Gastrointestinal: Negative for abdominal pain, constipation, diarrhea, nausea and vomiting. Genitourinary: Negative for dysuria, frequency and hematuria. Musculoskeletal: Negative for arthralgias, back pain, gait problem, joint swelling and myalgias. Skin: Negative for color change, pallor, rash and wound. Neurological: Negative for dizziness, seizures, syncope, light-headedness and headaches. Hematological: Negative. Physical Exam: There were no vitals taken for this visit. Ortho Exam right Knee Erythema: No Effusion: Negative Tenderness: None Incision: Healed well Range of Motion: Extension: 0 Flexion: 120 Anterior Drawer: Negative Posterior Drawer: Negative Midflexion Instability: Negative Posterior Tib and Dorsalis Pedis Pulses: 2+ Lower Extremity Edema: Negative left Knee Erythema: No Effusion: Negative Tenderness: None Incision: Healing well Range of Motion: Extension: 0 Flexion: 120 Anterior Drawer: Negative Posterior Drawer: Negative Midflexion Instability: Negative Posterior Tib and Dorsalis Pedis Pulses: 2+ Lower Extremity Edema: Negative The following portions of the patient's history were reviewed and updated as appropriate: allergies, current medications, past family history, past medical history, past social history, past surgicalhistory and problem list. Xrays: X-rays of bilateral knees demonstrate Persona knees on both knees in excellent position and alignment without evidence of interface abnormalities, except in the kneecap on the left. We will talk moreabout that on the skyline view. The alignment looks great. No progressive radiolucencies are seen in the femur and the tibial implant. Patella tracks great on both knees, but on the right, on the lateral, I can see how he has a slight avulsion fracture distally and then on the lateral view, I can see a little bit of lucency starting, meaning that he is beginning to loosen that kneecap. That does not mean it is ever going to completely loosen because there is scar around it as well, but it meanshe should definitely not be bending it past 90 when he does not need to so sitting with the legs out just slightly, a little bit less than what he is wants to do, a little bit less than 90, and also no getting down on his hands and knees. Otherwise things look great. I am not going to x-ray him foranother 2 years, but if something should bother him like this I want to come in and see him sooner, but I do not see any evidence of fracture. That little piece that avulsed off, that was a long timeago because it is smooth, so that is nothing he did acutely with the extra activity he did. Also, the fact that it has improved is why it is most likely not something like that because it would take a lot longer to improve if it was. Plan: SNOMED CT(R) 1. Primary osteoarthritis of right knee OSTEOARTHRITIS OF KNEE 2. Status post total right knee replacement HISTORY OF TOTAL KNEE ARTHROPLASTY No orders of the defined types were placed in this encounter. No Follow-up on file. Narrative: So other than the modification in his activities, I am going to have him sit with the knees just slightly out. Also, no more kneeling. And as far as the medicines go, even though his creatinine is fantastic, since he is on another medicine that has a definite incidence of increasing problems with the kidneys, I am going to cut him down to the 7.5 dose, and maybe he just takes it when he is going to go golfing, the night before and the day of twice a day. I do not mind him discontinuing it completely. He just has to stay functional and that is the big problem with discontinuing completely. Overall the knees look good, a little bit more maybe swelling on the right. That one was pretty swollenafter surgery and it has taken a while to go down, but his knees are looking good, doing well. Activities as tolerated, except things that bother it, like the moving is an example, though any time you do a lot of something it might not tell you till the next day, and then that might just be that heneeds to get Aleve then for a week and help with the inflammation and swelling, and ice it a littlebit, but he will try to avoid things like that, that are a little bit excessive. Karthik Calloway MD in this encounter* Nena Bynum, DO - 07/01/2019 10:05 AM EST [facility] [address] [place] [address] Patient Name: Bryan Harris Patient Age: 69 y.o. Patient : 1950 Date: 07/01/19 Progress Note HPI: Bryan Harris is a 69 y.o. male who is status post bilateral total knee arthroplasty both performed by Dr Calloway. Left side done in 2014 and right side done in 2016. Patient is doing well and has no current complaints at this time. Patient History: Past Medical History: Diagnosis Date Allergic rhinitis Arthritis Basal cell carcinoma of left shoulder GERD (gastroesophageal reflux disease) Gout no symptoms for years per pt History of colonoscopy History of stress test 2010 Baseline due to family h/o CAD- [place] Hyperlipidemia PONV (postoperative nausea and vomiting) Past Surgical History: Procedure Laterality Date ARTHROPLASTY KNEE TOTAL Left 08/23/2014 Procedure: LEFT TOTAL KNEE ARTHROPLASTY; Surgeon: Karthik Calloway MD; Location: [facility] OR; Service: ARTHROPLASTY KNEE TOTAL Right 06/25/2016 Procedure: RIGHT TOTAL KNEE ARTHROPLASTY ; Surgeon: Karthik Calloway MD; Location: [facility] OR; Service: BASAL CELL CARCINOMA EXCISION Left 11/2014 shoulder ORTHOPEDIC SURGERY Left 2010 knee scope ORTHOPEDIC SURGERY Right hand surgery Social History Socioeconomic History Marital status: Spouse name: Not on file Number of children: Not on file Years of education: Not on file Highest education level: Not on file Occupational History Not on file Social Needs Financial resource strain: Not on file Food insecurity Worry: Not on file Inability: Not on file Transportation needs Medical: Not on file Non-medical: Not on file Tobacco Use Smoking status: Never Smoker Smokeless tobacco: Never Used Substance and Sexual Activity Alcohol use: Yes Comment: occasionally Drug use: No Sexual activity: Not on file Lifestyle Physical activity Days per week: Not on file Minutes per session: Not on file Stress: Not on file Relationships Social connections Talks on phone: Not on file Gets together: Not on file Attends quaker service: Not on file Active member of club or organization: Not on file Attends meetings of clubs or organizations: Not on file Relationship status: Not on file Other Topics Concern Not on file Social History Narrative Not on file Family History Problem Relation Age of Onset Heart disease Father Surgical complications Neg Hx Anesthesia problems Neg Hx Clotting disorder Neg Hx Deep vein thrombosis Neg Hx Pulmonary embolism Neg Hx Medications: Current Outpatient Medications Medication Sig Dispense Refill allopurinol (ZYLOPRIM) 300 MG tablet Take 300 mg by mouth at bedtime . ASCORBATE CALCIUM (VITAMIN C ORAL) Take 1 tablet by mouth every morning . aspirin 81 MG EC tablet Take 81 mg by mouth at bedtime . atorvastatin (LIPITOR) 10 MG tablet Take 10 mg by mouth nightly. BIOTIN ORAL Take 1 tablet by mouth every morning . GUAIFENESIN/DEXTROMETHORPHAN (MUCINEX DM ORAL) Take by mouth. loratadine (CLARITIN) 10 mg tablet Take 10 mg by mouth every evening . meloxicam (MOBIC) 7.5 MG tablet Take 7.5 mg by mouth daily 1-2 tabs prn . multivitamin (multivitamin) per tablet Take 1 tablet by mouth every morning . omeprazole (PRILOSEC) 20 MG capsule Take 20 mg by mouth every morning. polycarbophil (FIBERCON) 625 mg tablet Take 625 mg by mouth every morning . vit A-vit C-vit [id number] (EYE VITAMIN AND MINERALS) 7,160-113-100 [id number] Tab Take 1 tablet by mouth every morning . tamsulosin (FLOMAX) 0.4 mg capsule Take 0.4 mg by mouth daily. No current facility-administered medications for this visit. Allergies: Allergies Allergen Reactions Tramadol Shortness Of Breath Percocet [Oxycodone-Acetaminophen] Other (See Comments) Urinary retention Hallucinations ROS: Review of Systems Constitutional: Negative. HENT: Negative. Eyes: Negative. Respiratory: Negative. Cardiovascular: Negative. Gastrointestinal: Negative. Endocrine: Negative. Genitourinary: Negative. Allergic/Immunologic: Negative. Neurological: Negative. Hematological: Negative. Psychiatric/Behavioral: Negative. Physical Exam: Ht 6' Wt 103 kg (227 lb) BMI 30.79 kg/m Physical Exam Constitutional: He is oriented to person, place, and time and well-developed, well-nourished, and in no distress. HENT: Head: Normocephalic and atraumatic. Eyes: Pupils are equal, round, and reactive to light. EOM are normal. Cardiovascular: Normal rate and regular rhythm. Pulmonary/Chest: Effort normal. Abdominal: Soft. Neurological: He is alert and oriented to person, place, and time. Ortho Exam Patient ambulates with a normal gait without assistive device. Right knee: Incision well healed with no evidence of erythema, warmth or drainage. ROM:0- 130. No evidence of varus/valgus instability or midflexion instability. Compartments soft and compressible. Calf soft and nontender, negative Amy's sign. Sensation intact to light touch saphenous, sural, tibial, superficial peroneal and deep peroneal nerves. Palpable dorsalis pedis and posterior tibialis pulses. Left knee: Incision well healed with no evidence of erythema, warmth or drainage. ROM:0- 130. No evidence of varus/valgus instability or midflexion instability. Compartments soft and compressible. Calf soft and nontender, negative Amy's sign. Sensation intact to light touch saphenous, sural, tibial, superficial peroneal and deep peroneal nerves. Palpable dorsalis pedis and posterior tibialis pulses. Imaging: X-rays as per Dr. Bynum's interpretation: AP, lateral and merchants view of the bilateral knees demonstrate well aligned components in good overall alignment with no interval change from most recentimaging. Gattman view shows the patella tracks well without evidence of tilt or subluxation. There are no findings of fracture, significant osteolysis or loosening. Assessment: Bryan Harris is a 69 y.o. male status post bilateral total knee arthroplasty Plan: 1. The patient is doing well with no complaints or issues with their knee replacement(s). The patient should continue activities as tolerated; however we have discussed not performing high impact activities. The patient should continue with low impact activities such as walking, biking, and swimming. 2. Discussed with patient the importance of proper dental hygiene and routine cleanings. They do understand the need for antibiotic prophylaxis prior to any scheduled cleanings or procedures to prevent PJI. Patient was instructed to call our office for antibiotic prescription needs. 3. We will see the patient back in the office in 1 year for routine follow-up with xray. 4. I have answered all of the patient's questions and concerns today. Patient verbalized understanding of all instructions provided and is in agreement with the current course of treatment. Patient was instructed to call the office if they have any other questions or concerns regarding their care. Nena Bynum Note: To expedite correspondence this note was generated by [employer] voice recognition software. Somegrammatical or spelling errors may occur using the system. documented in this encounter* Nena Bynum DO - 07/20/2020 2:42 PM EST [facility] [address] [place] [id number] Patient Name: Bryan Harris Patient Age: 70 y.o. Patient : 1950 Date: 07/20/20 Progress Note HPI: Bryan Harris is a 70 y.o. male who is status post bilateral total knee arthroplasty. Both surgeries performed by Dr. Mera, left side in 2014 and right side in 2017. Patient is doing well and has no current complaints at this time. Patient History: Past Medical History: Diagnosis Date Allergic rhinitis Arthritis Basal cell carcinoma of left shoulder GERD (gastroesophageal reflux disease) Gout no symptoms for years per pt History of colonoscopy History of stress test 2010 Baseline due to family h/o CAD- [place] Hyperlipidemia PONV (postoperative nausea and vomiting) Past Surgical History: Procedure Laterality Date ARTHROPLASTY KNEE TOTAL Left 08/23/2014 Procedure: LEFT TOTAL KNEE ARTHROPLASTY; Surgeon: Karthik Calloway MD; Location: [facility]; Service: ARTHROPLASTY KNEE TOTAL Right 06/25/2016 Procedure: RIGHT TOTAL KNEE ARTHROPLASTY ; Surgeon: Karthik Calloway MD; Location: [facility]; Service: BASAL CELL CARCINOMA EXCISION Left 11/2014 shoulder ORTHOPEDIC SURGERY Left 2010 knee scope ORTHOPEDIC SURGERY Right hand surgery Social History Socioeconomic History Marital status: Spouse name: Not on file Number of children: Not on file Years of education: Not on file Highest education level: Not on file Occupational History Not on file Social Needs Financial resource strain: Not on file Food insecurity Worry: Not on file Inability: Not on file Transportation needs Medical: Not on file Non-medical: Not on file Tobacco Use Smoking status: Never Smoker Smokeless tobacco: Never Used Substance and Sexual Activity Alcohol use: Yes Comment: occasionally Drug use: No Sexual activity: Not on file Lifestyle Physical activity Days per week: Not on file Minutes per session: Not on file Stress: Not on file Relationships Social connections Talks on phone: Not on file Gets together: Not on file Attends quaker service: Not on file Active member of club or organization: Not on file Attends meetings of clubs or organizations: Not on file Relationship status: Not on file Other Topics Concern Not on file Social History Narrative Not on file Family History Problem Relation Age of Onset Heart disease Father Surgical complications Neg Hx Anesthesia problems Neg Hx Clotting disorder Neg Hx Deep vein thrombosis Neg Hx Pulmonary embolism Neg Hx Medications: Current Outpatient Medications Medication Sig Dispense Refill allopurinol (ZYLOPRIM) 300 MG tablet Take 300 mg by mouth at bedtime . ASCORBATE CALCIUM (VITAMIN C ORAL) Take 1 tablet by mouth every morning . aspirin 81 MG EC tablet Take 81 mg by mouth at bedtime . atorvastatin (LIPITOR) 10 MG tablet Take 10 mg by mouth nightly. BIOTIN ORAL Take 1 tablet by mouth every morning . GUAIFENESIN/DEXTROMETHORPHAN (MUCINEX DM ORAL) Take by mouth. loratadine (CLARITIN) 10 mg tablet Take 10 mg by mouth every evening . meloxicam (MOBIC) 7.5 MG tablet Take 7.5 mg by mouth daily 1-2 tabs prn . multivitamin (multivitamin) per tablet Take 1 tablet by mouth every morning . omeprazole (PRILOSEC) 20 MG capsule Take 20 mg by mouth every morning. polycarbophil (FIBERCON) 625 mg tablet Take 625 mg by mouth every morning . tamsulosin (FLOMAX) 0.4 mg capsule Take 0.4 mg by mouth daily. vit A-vit C-vit Z-[id number]-[id number] (EYE VITAMIN AND MINERALS) 7,160-113-100 [id number] Tab Take 1 tablet by mouth every morning . No current facility-administered medications for this visit. Allergies: Allergies Allergen Reactions Tramadol Shortness Of Breath Percocet [Oxycodone-Acetaminophen] Other (See Comments) Urinary retention Hallucinations ROS: Review of Systems Physical Exam: There were no vitals taken for this visit. Physical Exam Ortho Exam Patient ambulates with a normal gait without assistive device. Right knee: Incision well healed with no evidence of erythema, warmth or drainage. Negative effusion. ROM: 0 - 120. No evidence of varus/valgus instability or midflexion instability. Compartments soft and compressible. Calf soft and nontender, negative Amy's sign. Sensation intact to light touch saphenous, sural, tibial, superficial peroneal and deep peroneal nerves. Palpable dorsalis pedis and posterior tibialis pulses. Left knee: Incision well healed with no evidence of erythema, warmth or drainage. Negative effusion. ROM: 0 - 120. No evidence of varus/valgus instability or midflexion instability. Compartments soft and compressible. Calf soft and nontender, negative Amy's sign. Sensation intact to light touch saphenous, sural, tibial, superficial peroneal and deep peroneal nerves. Palpable dorsalis pedis and posterior tibialis pulses. Imaging: X-rays as per Dr. Bynum's interpretation: AP, lateral and merchants view of the bilateral knees demonstrate well aligned components in good overall alignment with no interval change from most recentimaging. Gattman view shows the patella tracks well in the groove of the right knee, however the left patella continues to show some tilt but still tracks well within the groove with no changes from m ost previous imaging. There are no findings of fracture, significant osteolysis or loosening. Assessment: Bryan Harris is a 70 y.o. male status post bilateral total knee arthroplasty Plan: 1. The patient is doing well with no complaints or issues with their knee replacement(s). The patient should continue activities as tolerated; however we have discussed not performing high impact activities. The patient should continue with low impact activities such as walking, biking, and swimming. 2. Discussed with patient the importance of proper dental hygiene and routine cleanings. They do understand the need for antibiotic prophylaxis prior to any scheduled cleanings or procedures to prevent PJI. Patient was instructed to call our office for antibiotic prescription needs. 3. We will see the patient back in the office in 2 years for routine follow-up with xray. 4. I have answered all of the patient's questions and concerns today. Patient verbalized understanding of all instructions provided and is in agreement with the current course of treatment. Patient was instructed to call the office if they have any other questions or concerns regarding their care. Nena Bynum Note: To expedite correspondence this note was generated by [employer] voice recognition software. Somegrammatical or spelling errors may occur using the system. 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 Advance Directives and Living Will Latest Code Status on File Code Status Date Activated Date Inactivated Comments Full Code 06/25/2016 1:54 PM 06/29/2016 3:41 PM Full Code 08/23/2014 6:45 AM 08/25/2014 7:58 PM Latest Code Status on File Code Status Date Activated Date Inactivated Comments Full Code 06/25/2016 1:54 PM 06/29/2016 3:41 PM Code Status History Code Status Date Activated Date Inactivated Comments Full Code 08/23/2014 6:45 AM 08/25/2014 7:58 PM Summary Purpose Family History No Family History Records FoundNo Family History Records FoundNo Family History Records FoundNo Family History Records Found Additional Source Comments Reason for Visit (unrecogniz ed section and content) cough Reason Comments Follow-up Reason Comments other Lef tknee stays swol anirudh but goes to a massage therapist and she gets the swelling to go down/ She 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 lymph drainage Follow-up Reason Onset Date Comments Medication Refill 08/11/2021 Reason Comments Pain Reason Onset Date Comments Medication Refill 08/28/2022 Reason Onset Date Comments Medication Refill 08/30/2022 Reason Onset Date Comments Medication Refill 02/11/2023 (unrecognized sect ion and content) No Status Records FoundNo Status Records FoundNo Status Records FoundNo Status Records Found INFORMATION SOURCE (unrecogn ized section and content) DATE CREATED AUTHOR 06/26/2021 [facility] DATE CREATED AUTHOR AUTHOR'S ORGANIZ ATION 07/19/2021 [facility] DATE CREATED AUTHOR AUTHOR'S ORGANIZ ATION 03/22/2022 [facility] DATE CREATED AUTHOR AUTHOR'S ORGANIZ ATION 02/16/2023 [facility] Care Teams (unrecognized sec tion and content) Stitching Department Supervisor Relationship Specialty Start Date End Date Dawit Lorenz DO [address] [facility] [place] [address] [place] [address] PCP - General Internal Medicine 06/29/14 Dwait Lorenz DO [address] [facility] [place] [address] Internal Medicine 06/29/14 Karthik Calloway MD Consulting Physician Orthopedic Surgery 01/28/17 Stitching Department Supervisor Relationship Specialty Start Date End Date Dawit Lorenz DO [address] [facility] [place] [address] [address] [place] [address] PCP - General Internal Medicine 06/29/14 Dawit Lorenz DO [address] [facility] [place] [address] Internal Medicine 06/29/14 Karthik Calloway MD [address] [facility] [place] [address] Consulting Physician Orthopedic Surgery 01/28/17 Stitching Department Supervisor Relationship Specialty Start Date End Date Dawit Lorenz DO [address] [facility] [place] [address] [address] [place] [address] PCP - General Internal Medicine 06/29/14 Dawit Lorenz DO [address] [facility] [place] [address] [place] [address] Internal Medicine 06/29/14 Karthik Calloway MD [address] [facility] [place] [address] Consulting Physician Orthopedic Surgery 01/28/17 Stitching Department Supervisor Relationship Specialty Start Date End Date Dawit Lorenz DO [address] [facility] [place] [address] PCP - General Internal Medicine 06/29/14 Dawit Lorenz DO [address] [facility] [place] [address] Internal Medicine 06/29/14 Karthik Calloway MD [address] [facility] [place] [address] Consulting Physician Orthopedic Surgery 01/28/17 Stitching Department Supervisor Relationship Specialty Start Date End Date Dawit Lorenz DO [address] [facility] [place] [address] PCP - General Internal Medicine 06/29/14 Dawit Lorenz DO [address] [facility] [place] [address] Internal Medicine 06/29/14 Karthik Calloway MD [address] [facility] [place] [address] Consulting Physician Orthopedic Surgery 01/28/17 Stitching Department Supervisor Relationship Specialty Start Date End Date Dawit Lorenz DO [address] [facility] [place] [place] [address] PCP - General Internal Medicine 06/29/14 Dawit Lorenz DO [address] [facility] [place] [address] Internal Medicine 06/29/14 Karthik Calloway MD [address] [facility] [place] [address] Consulting Physician Orthopedic Surgery 01/28/17 Stitching Department Supervisor Relationship Specialty Start Date End Date Dawit Lorenz DO [address] [facility] [place] [address] PCP - General Internal Medicine 06/29/14 Dawit Lorenz DO [address] [facility] [place] [address] Internal Medicine 06/29/14 Karthik Calloway MD [address] [facility] [place] [address] Consulting Physician Orthopedic Surgery 01/28/17 Stitching Department Supervisor Relationship Specialty Start Date End Date Dawit Lorenz DO [address] [facility] [place] [address] PCP - General Internal Medicine 06/29/14 Dawit Lorenz DO [address] [facility] [place] [address] Internal Medicine 06/29/14 Karthik Calloway MD [address] [facility] [place] [address] Consulting Physician Orthopedic Surgery 01/28/17 Stitching Department Supervisor Relationship Specialty Start Date End Date Dawit Lorenz DO [address] [facility] [place] [address] PCP - General Internal Medicine 06/29/14 Dawit Lorenz DO [address] [facility] [place] [address] Internal Medicine 06/29/14 Karthik Calloway MD [address] [facility] [place] [address] Consulting Physician Orthopedic Surgery 01/28/17 FOR RECORDS PERTAINING TO PATIENTS WHO ARE OR HAVE BEEN ENROLLED IN A CHEMICAL DEPENDENCY/SUBSTANCEABUSE PROGRAM, SOME INFORMATION MAY BE OMITTED. This clinical summary was aggregated from multiple sources. Caution should be exercised in using it in the provision of clinical care. This summary normalizes information from multiple sources, and as a consequence, information in this document may materially change the coding, format and clinical context of patient data. In addition, data may be omitted in some cases. CLINICAL DECISIONS SHOULD BE BASED ON THE PRIMARY CLINICAL RECORDS. [facility] [employer] [facility]. provides no warranty or guarantee of the accuracy or completeness of information in this document.
--- NOTE | 2023-08-15 11:54 | ED_ITS ---
HPI - General Adult General Chief complaint: Upper Respiratory Infection Stated complaint: COUGH Time Seen by Provider: 08/15/23 11:54 Source: patient Mode of arrival: walk-in History of Present Illness HPI narrative: He has notThis patient is here for evaluation of a cough. He has had it for several months. He has seen his family doctor several times who is ordered a number of outpatient tests. They come out and admits that they are getting frustrated because all the tests including the CAT scan to been put on hold nothing has been done. He is a non-smoker and never has been. He has not coughed up any blood or purulent sputum. He has not had influenza or viral type symptomatology. He has not had any weight loss. He has not had any travel history. He has not had any environmental pathogens that he is aware of. He denies any previous heart problems. He has had bilateral knee surgery and he says he has had leg swelling since the surgery. He has never had a stress test or echocardiogram done. He is not having any chest pain. Had previous pulmonary function testing. No history of asthma COPD or reactive airway disease. Related Data Home Medications Medication Instructions Recorded Confirmed albuterol sulfate 90 mcg/actuation 2 puff inhalation Q6H PRN 08/15/23 08/15/23 aerosol inhaler shortness of breath or wheezing allopurinol 300 mg tablet 300 mg PO DAILY 08/15/23 08/15/23 atorvastatin 10 mg tablet 10 mg PO QPM 08/15/23 08/15/23 fluticasone 100 mcg-salmeterol 50 1 inh inhalation Q12H 08/15/23 08/15/23 mcg/dose blistr powdr for inhalation losartan 25 mg tablet 25 mg PO DAILY 08/15/23 08/15/23 prednisone 10 mg tablet 10 mg PO BID 08/15/23 08/15/23 Allergies Allergy/AdvReac Type Severity Reaction Status Date / Time tramadol Allergy Severe Verified 08/15/23 11:43 Exam Narrative Exam Narrative: Very pleasant gentleman in no distress awake alert good historian as is his . He does not have any obvious bronchospasm stridor or respiratory distress. On auscultation the chest actually his lungs are completely clear with no wheeze rales or rhonchi. It should be noted he currently is on some steroids. Heart rate and rhythm are normal there is no S3-S4 or murmur. Legs show 1+ lower leg edema. There is no phlebitis warmth or erythema or tenderness. Skin is warm and dry with no petechiae purpura rash or exanthem. Cognition and mentation is normal. His back shows no evidence of skin lesions. Constitutional Vital Signs, click to edit/add: Last Vital Signs Temp 98.7 F 08/15/23 11:40 Pulse 73 08/15/23 13:44 Resp 17 08/15/23 13:44 BP 165/95 H 08/15/23 11:40 Pulse Ox 98 08/15/23 11:40 O2 Del Method Room Air 08/15/23 11:40 Course Vital Signs Vital signs: Vital Signs Temperature 98.7 F 08/15/23 11:40 Pulse Rate 82 08/15/23 11:40 Respiratory Rate 18 08/15/23 11:40 Blood Pressure 165/95 H 08/15/23 11:40 Pulse Oximetry 98 08/15/23 11:40 Oxygen Delivery Method Room Air 08/15/23 11:40 Temperature 98.7 F 08/15/23 11:40 Pulse Rate 73 08/15/23 13:44 Respiratory Rate 17 08/15/23 13:44 Blood Pressure 165/95 H 08/15/23 11:40 Pulse Oximetry 98 08/15/23 11:40 Oxygen Delivery Method Room Air 08/15/23 11:40 Medical Decision Making MDM Narrative Medical decision making narrative: This patient CT scan was discussed with the radiologist and he does have small basilar effusions and a 1.5 cm pericardial effusion. There is no compromise of cardiac function that was noted. His EKG does not show any evidence of ischemia injury or infarct. His BNP is normal and his troponin is normal. I did order CRP after initial round of blood testing and that is substantially elevated. His COVID and influenza testing is negative. I did recall his primary care doctor by Dr. Lorenz and he will see him as an outpatient and proceed getting the echocardiogram. I do not believe he has an emergency medical condition that needs to be admitted at this time. Lab Data Labs: Lab Results 08/15/23 08/15/23 Range/Units 12:20 12:22 WBC 9.9 (4.0-11.0) 10^3/uL RBC 3.47 L (4.70-6.10) 10^6/uL Hgb 11.2 L (14.0-18.0) g/dL Hct 34.7 L (42.0-54.0) % MCV 100.0 H (80.0-94.0) fL MCH 32.3 (25.9-34.0) pg MCHC 32.3 (29.9-35.2) g/dL RDW 12.5 (11.0-15.0) % Plt Count 288 (150-450) 10^3/uL MPV 9.5 (9.5-13.5) fL Neut % (Auto) 81.5 H (43.0-75.0) % Lymph % (Auto) 8.0 L (20.5-60.0) % Andrews % (Auto) 9.9 (1.7-12.0) % Eos % (Auto) 0.0 L (0.9-7.0) % Baso % (Auto) 0.2 (0.2-2.0) % Neut # (Auto) 8.1 H (1.4-6.5) 10^3/uL Lymph # (Auto) 0.8 L (1.2-3.8) 10^3/uL Andrews # (Auto) 1.0 H (0.3-0.8) 10^3/uL Eos # (Auto) 0.0 (0.0-0.7) 10^3/uL Baso # (Auto) 0.0 (0.0-0.1) 10^3/uL Abs Immat Gran (auto) 0.04 H (0.00-0.03) 10^3/uL Imm/Tot Granulo (auto) 0.4 (0.0-0.5) % ESR >130 H (<=20) mm/hr Sodium 138 (136-145) mmol/L Potassium 3.8 (3.5-5.1) mmol/L Chloride 101 (98-107) mmol/L Carbon Dioxide 27.4 (21.0-32.0) mmol/L Anion Gap 13.4 BUN 15.0 (7.0-18.0) mg/dL Creatinine 1.06 (0.70-1.30) mg/dL Est GFR ( Amer) >60 (>=60) Est GFR (Non-Af Amer) >60 (>=60) BUN/Creatinine Ratio 14.2 Glucose 115 H (74-106) mg/dL Calcium 8.9 (8.5-10.1) mg/dL Total Bilirubin 0.6 (0.2-1.0) mg/dL AST 24 (15-37) U/L ALT 33 (16-63) U/L Alkaline Phosphatase 66 (46-116) U/L Troponin I High Sens 11.9 (4.0-76.1) pg/mL C-Reactive Protein 6.36 H (<=0.50) mg/dL NT-Pro-B Natriuret Pep 397.0 (<=900.0) pg/mL Total Protein 7.9 (6.4-8.2) g/dL Albumin 3.2 L (3.4-5.0) g/dL Globulin 4.7 g/dL Albumin/Globulin Ratio 0.7 Influenza Type A Ag Negative Influenza Type B Ag Negative SARS-CoV-2 Ag (CV2AG) Negative (NEGATIVE) Discharge Plan Discharge Chief Complaint: Upper Respiratory Infection Clinical Impression: Chronic pericardial effusion Patient Disposition: Home, Self-Care Time of Disposition Decision: 14:26 Prescriptions / Home Meds: No Action albuterol sulfate 90 mcg/actuation HFA aerosol inhaler 2 puff INHALATION Q6H PRN (Reason: shortness of breath or wheezing) allopurinol 300 mg tablet 300 mg PO DAILY atorvastatin 10 mg tablet 10 mg PO QPM fluticasone propion-salmeterol 100-50 mcg/dose blister with device 1 inh INHALATION Q12H losartan 25 mg tablet 25 mg PO DAILY prednisone 10 mg tablet 10 mg PO BID Additional Instructions: Follow-up with Dr. Lorenz to get your echocardiogram. Continue your present medications Referrals: Dawit Lorenz DO [Primary Care Provider] - 1 week Stand Alone Forms: Portal Instructions
--- NOTE | 2023-08-15 11:55 | CT_ITS ---
The [address] [address] Patient Name: SAV RAYMUNDO MRN: [id number] date: 1950 Sex: M Assigned Patient Location: ER Current Patient Location: ER Accession/Order Number: [id number] Exam Date: 08/15/2023 13:08 Report Date: 08/15/2023 13:40 At the request of: ABDI MCGRAW Procedure: CT chest w con EXAMINATION: CT chest w con HISTORY: Cough for 3 months COMPARISON: No relevant comparison available. TECHNIQUE: Multi-planar CT images were created with IV contrast. Axial, Coronal, and Sagittal images. Dose reduction techniques were achieved by using automated exposure control and/or adjustment of mA and/or kV according to patient size and/or use of iterative reconstruction technique. FINDINGS: LUNGS: Partial consolidation of the right lower lobe with presence of air bronchograms. Scattered mostly calcified punctate pulmonary nodules. PLEURA: 4.4 cm right and 0.9 cm left pleural effusions VASCULATURE: Normal postcontrast opacification of the central pulmonary arterial tree with no filling defect to suggest a pulmonary embolus KEON: Calcified hilar lymph nodes MEDIASTINUM: No mass or adenopathy. CARDIAC: Moderate pericardial effusion measuring up to 1.5 cm thick. Moderate coronary atherosclerosis. No enlargement AORTA: No aortic aneurysm or dissection CHEST WALL: No mass or axillary adenopathy. BONES: No bone lesion or fracture. LIMITED ABDOMEN: Diffuse hypoattenuation the liver suggesting hepatic steatosis OTHER: Negative. CT/CT chest w con IMPRESSION: Partial right lower lobe consolidation, consider pneumonia Moderate right and small left pleural effusions 1.5 cm pericardial effusion Electronically authenticated by: REBECCA BARRY Date: 08/15/2023 13:40
--- NOTE | 2023-08-15 11:57 | ECG_ITS ---
The [facility] Test Date: 2023-08-15 Pat Name: SAV RAYMUNDO Department: Room: - Gender: Male [employer]: : 1950 Requested By: YULI MARISCAL Order Number: [id number] Reading MD: YULI MARISCAL Measurements Intervals [place] Rate: 81 P: -30 NC: 166 QRS: 17 QRSD: 90 T: 90 QT: 320 QTc: 357 Interpretive Statements 1100 Sinus rhythm 4068 Nonspecific Twave abnormality 8305 Short QTc interval 9150 abnormal ECG No previous ECG available for comparison Electronically Signed On 08-15-2023 23:10:41 EST by YULI MARISCAL
[2023-08-15 12:34] LABS: Basophils Percent Auto 0.2 % (0.2-2.0); Hematocrit 34.7 % (42.0-54.0); Hemoglobin 11.2 g/dL (14.0-18.0); Immature Granulocytes Abs Auto 0.04 10^3/uL (0.00-0.03); Immature Granulocytes Pct Auto 0.4 % (0.0-0.5); Lymphocytes Absolute Auto 0.8 10^3/uL (1.2-3.8); Mean Corpuscular HGB Conc 32.3 g/dL (29.9-35.2); Mean Corpuscular Hemoglobin 32.3 pg (25.9-34.0); Mean Platelet Volume 9.5 fL (9.5-13.5); Monocytes Percent Auto 9.9 % (1.7-12.0); Neutrophils Absolute Auto 8.1 10^3/uL (1.4-6.5); Neutrophils Percent Auto 81.5 % (43.0-75.0); Platelet Count 288 10^3/uL (150-450); Red Blood Count 3.47 10^6/uL (4.70-6.10); Red Cell Distribution Width 12.5 % (11.0-15.0); White Blood Count 9.9 10^3/uL (4.0-11.0)
[2023-08-15 12:49] LABS: SARS-CoV-2 Ag NEGATIVE (NEGATIVE)
[2023-08-15 12:50] LABS: Influenza Virus A Antigen Negative; Influenza Virus B Antigen Negative; Internal Control Within Normal Limits
[2023-08-15 12:55] LABS: Alanine Aminotransferase 33 U/L (16-63); Albumin Globulin Ratio 0.7; Albumin Level 3.2 g/dL (3.4-5.0); Alkaline Phosphatase 66 U/L (46-116); Anion Gap 13.4; Aspartate Amino Transferase 24 U/L (15-37); BUN Creatinine Ratio 14.2; Bilirubin Total 0.6 mg/dL (0.2-1.0); Calcium 8.9 mg/dL (8.5-10.1); Carbon Dioxide 27.4 mmol/L (21.0-32.0); Chloride 101 mmol/L (98-107); Estimated GFR (African America >60 (>=60); Estimated GFR (Non-African Ame >60 (>=60); Globulin 4.7 g/dL; Glucose 115 mg/dL (74-106); Potassium 3.8 mmol/L (3.5-5.1); Sodium 138 mmol/L (136-145); Total Protein 7.9 g/dL (6.4-8.2); Troponin I High Sensitivity 11.9 pg/mL (4.0-76.1)
[2023-08-15 14:01] LABS: C Reactive Protein 6.36 mg/dL (<=0.50)
[2023-08-15 14:08] LABS: Erythrocyte Sedimentation Rate >130 mm/hr (<=20)
== END 2023-08-15 14:39 | disposition home or self-care (01) ==
PROVIDERS: Emergency Provider Emergency Medicine Emergency Medical Services; PCP Internal Medicine
DX: I31.39 Other pericardial effusion (noninflammatory) (principal); Z79.899 Other long term (current) drug therapy; Z20.822 Contact with and (suspected) exposure to COVID-19
CPT/HCPCS: 36415; 71260; 80053; 83880; 84484; 85025; 85652; 86140; 87804; 87811; 93005; 99285; Q9967

== ENCOUNTER 2023-08-21 12:19 | Outpatient (OUT) | payer MEDICARE, SELFPAY ==
[2023-08-21 13:20] LABS: Erythrocyte Sedimentation Rate 126 mm/hr (<=20)
[2023-08-21 13:24] LABS: C Reactive Protein 4.28 mg/dL (<=0.50); Thyroid Stimulating Hormone 1.287 uIU/mL (0.358-3.740)
--- NOTE | 2023-08-21 13:50 | CA_ITS ---
Patient Name: SAV RAYMUNDO MR#: [id number] : 1950 Exam Date: 08/21/2023 Ordering Doctor: DR Dawit Lorenz D.O. ECHOCARDIOGRAM REPORT PROCEDURE: CA ECHO DOPPLER COMPLETE INDICATIONS: Murmur, Subacute cough COMPARISON: None. DESCRIPTION: COMPLETE ECHOCARDIOGRAM Real-time transthoracic echocardiography with 2D, M-mode, spectral and color flow Doppler performed. QUALITY: Technical quality was good. LEFT VENTRICLE: Normal chamber size. Mild concentric left ventricular hypertrophy. LV EF: Global left ventricular systolic function is low normal limits; ejection fraction is estimated to be 50 to 55%. No significant wall motion abnormalities. DIASTOLIC: Normal diastolic function. ATRIAL SEPTUM: Inadequately seen. LEFT ATRIUM: Normal chamber size. RIGHT ATRIUM: Normal chamber size. RIGHT VENTRICLE: Normal chamber size. Normal right ventricular systolic function. TRICUSPID VALVE: Normal mobility and thickness. No stenosis with trivial regurgitation. Mild pulmonary hypertension. RVSP 30 mmHg MITRAL VALVE: Normal mobility and thickness. No evidence of mitral valve stenosis. There is no mitral annular calcification. Trivial mitral regurgitation. AORTIC VALVE: Normal trileaflet appearance. No visible sclerosis. Normal leaflet mobility. No evidence of aortic valve stenosis. Trivial aortic regurgitation. AORTIC ROOT: Normal diameter and appearance. PULMONIC VALVE: Normal thickness and mobility. No stenosis. Trivial regurgitation. PERICARDIUM: Moderate pericardial effusion. Circumferential pericardial effusion with no convincing signs of tamponade physiology. IVC: Moderate dilatation. Measuring 2.5 cm with no collapse/ CONCLUSION: 1. Global left ventricular systolic function is low normal limits; estimated ejection fraction is 50 to 55% 2. Normal right ventricular size and systolic function 3. Mildly increased left ventricular wall thickness 4. Normal diastolic function 5. Mildly elevated right ventricular systolic pressure; RVSP 30 mmHg 6. No significant valvular abnormalities 7. Moderate circumferential pericardial effusion is seen with no signs of tamponade physiology; recommend close clinical and echocardiographic follow-up Adult Echocardiography Procedure Report Left Ventricle LVEDD (3.7 - 5.6 cm): 4.23 cm LVESD (2.2 - 4.0 cm): 3.38 cm LVIVS thickness (0.6 - 1.2 cm): 1.32 cm LVPW thickness (0.5 - 1.0 cm): 1.24 cm e': 0.06 m/s E - e': 10.48 LVOT Max Gradient: 3.57 mm[Hg] LVOT Area (cm2): 0.94 m/s Peak Velocity (LVOT): 0.94 m/s Mean Velocity (LVOT): 0.66 m/s LVOT Diameter 2.22 cm Left Ventricular Ejection Fraction: 54.94 % Left Atrium LA Volume Index (2D A2C): 31.80 ml/m2 Left Atrium Systolic Dimension: 3.71 cm Mitral Valve MV E to A Ratio: 0.84 Mitral Valve A-Wave Peak Velocity: 0.77 m/s Mitral Valve E-Wave Peak Velocity: 0.65 m/s Right Ventricle RV Internal Diastolic Dimension: 3.74 cm Aorta AO Root Diam: 3.50 cm Ascending Ao Diam: 3.15 cm Aortic Valve AoV Area (Peak Nathan): 3.26 cm2, 3.26 cm2 AoV Area (VTI): 3.15 cm2, 3.15 cm2 Peak Velocity(Antegrade Flow): 1.12 m/s Peak Gradient(Antegrade Flow): 5.04 mm[Hg] Mean Velocity(Antegrade Flow): 0.85 m/s Mean Gradient(Antegrade Flow): 3.16 mm[Hg] Velocity Time Integral: 23.97 cm Tricuspid Valve Peak Velocity (Regurgitant Flow): 2.21 m/s, 1.67 m/s Pulmonic Valve Mean Gradient: 1.97 mm[Hg], 2.33 mm[Hg], 2.03 mm[Hg], 1.96 mm[Hg] Mean Velocity: 0.67 m/s, 0.74 m/s, 0.68 m/s, 0.66 m/s Peak Velocity: 0.93 m/s Peak Gradient: 3.51 mm[Hg], 3.51 mm[Hg], 3.25 mm[Hg], 3.51 mm[Hg] Right Atrium Right Atrium Systolic Pressure: 43.42 ml, 43.42 ml Dictated by: Joanna Villela M.D. on 08/21/2023 at 14:06 Approved by: Joanna Villela M.D. on 08/21/2023 at 14:12
[2023-08-22 12:12] LABS: ANA Direct Negative (Negative)
== END 2023-08-21 12:20 | disposition home or self-care (01) ==
LOC: CARD 12:20
PROVIDERS: PCP Internal Medicine; Visit Provider Internal Medicine
DX: R01.1 Cardiac murmur, unspecified (principal); R05.2 Subacute cough; D75.89 Other specified diseases of blood and blood-forming organs; R53.83 Other fatigue; J90 Pleural effusion, not elsewhere classified; I31.39 Other pericardial effusion (noninflammatory)
CPT/HCPCS: 36415; 82607; 82746; 84443; 85652; 86038; 86140; 93306

== ENCOUNTER 2023-08-28 14:37 | Outpatient (OUT) | payer MEDICARE, SELFPAY ==
[2023-08-29 06:10] LABS: Rheumatoid Factor (RF) <10.0 IU/mL (<14.0)
[2023-08-29 11:12] LABS: Antiscleroderma-70 Antibodies <0.2 AI (0.0-0.9)
[2023-08-29 12:11] LABS: Anti-CCP Ab, IgG/IgA 1 units (0-19)
[2023-08-29 16:10] LABS: Angiotensin-Converting Enzyme 34 U/L (14-82)
[2023-08-30 20:08] LABS: Anti-MPO Antibodies <0.2 units (0.0-0.9); Anti-PR3 Antibodies <0.2 units (0.0-0.9); Cytoplasmic (C-ANCA) <1:20 titer (Neg:<1:20); Perinuclear (P-ANCA) <1:20 titer (Neg:<1:20)
[2023-09-06 11:12] LABS: Histoplasma Gal'mannan Ag Ur Negative (<0.5 ng/mL)
== END 2023-08-28 14:38 | disposition home or self-care (01) ==
LOC: LAB 14:38
PROVIDERS: PCP Internal Medicine; Visit Provider Internal Medicine
DX: R05.3 Chronic cough (principal); J90 Pleural effusion, not elsewhere classified
CPT/HCPCS: 36415; 82164; 83516; 86037; 86200; 86235; 86431; 86615; 86658; 86698; 86747; 87385

== ENCOUNTER 2023-09-04 07:30 | Outpatient (RCR) | payer MEDICARE, SELFPAY ==
[2023-09-04] VITALS (7 sets, daily range): BP systolic 132–164; BP diastolic 84–116; PULSE 83–98; RESP 14–18; TEMP 36.6; O2SAT 94–97
--- NOTE | 2023-09-04 11:39 | PC.NURSE ---
1130: Pt. to ICU for scheduled thoracentesis accompanied by . Seated on side of bed. Reviewed procedure and what to expect with patient, questions addressed. VSS. Pt. changed into gown. Denies needs or c/o.
--- NOTE | 2023-09-04 12:42 | PC.NURSE ---
1212: Dr. Gotti to bedside. Consent reviewed and verified with patient. Denies questions. 1214: Time out performed. Dr. Gotti initiates thoracentesis to right lung, using ultrasound to guide. Pt. tolerates all without c/o or adverse reaction. 625 ML of clear, dark awilda fluid drained from pleural space. Fluid obtained in vacutainer and 3 vials to be sent to lab. 1227: Procedure completed at this time. Small amount of bleeding to insertion site. Pressure applied, large bandaid to site. Pt. without c/o. VSS. Awaiting in bed for portable CXR. 1238: returns to bedside.
--- NOTE | 2023-09-04 12:43 | XR_ITS ---
The [address] [address] Patient Name: SAV RAYMUNDO MRN: [id number] date: 1950 Sex: M Assigned Patient Location: [facility] Current Patient Location: [facility] Accession/Order Number: [id number] Exam Date: 09/04/2023 13:01 Report Date: 09/04/2023 13:25 At the request of: TINA LANTIGUA Procedure: XR chest 1V EXAM: XR chest 1V at 1226 hours HISTORY: Right pleural effusion s/p thoracentesis COMPARISON: 07/08/2023 TECHNIQUE: AP upright portable chest x-ray FINDINGS: The heart is borderline enlarged, possibly in part related to projection. Slight blunting of the right costophrenic angle indicates a very small effusion. There is no evidence of a focal infiltrate or pneumothorax. The osseous structures are grossly intact. XR/XR chest 1V IMPRESSION: Slight blunting of the right costophrenic angle indicates a small effusion. There is no evidence of a pneumothorax at this time. No focal infiltrate is identified, and there is no evidence of overt cardiac decompensation. Electronically authenticated by: DIDIER ROWAN Date: 09/04/2023 13:25
--- NOTE | 2023-09-04 12:53 | W.PM.PROCNOT ---
Date of procedure: 09/04/23 Pre-op diagnosis: Right pleural effusion of unknown etiology Post-op diagnosis: same as pre-op Procedure: Procedure: Diagnostic & therapeutic ultrasound-guided right-sided thoracentesis Consent: Informed consent was obtained after risks, benefits, and alternatives were discussed with the patient. Time out was initiated to confirm the correct patient, site, and procedure with all present voicing in the affirmative. Procedure: The patient was placed in the seated position in the hospital bed. Ultrasound was utilized to identify the hemidiaphragm and pleural fluid on the right. An appropriate drainage site was marked via marking pen, based on anatomical landmarks and the ultrasound findings. Chloraprep was used to cleanse the lower right hemithorax. Sterile drapes were applied. Lidocaine 1% 10mL was injected, first as superficial skin wheal, and then using aspiration technique, advanced over the superior aspect of the lower rib subcutaneously at the periosteum and then parietal pleura. Easy return of dark orange pleural fluid was aspirated. Next, a small incision was made to the anesthetized area with the blade provided in the prepackaged thoracentesis kit. Hemostasis was achieved. A yevbpugl-pzwz-eslyzx apparatus was advanced as a unit over the superior aspect of the lower rib into the pleural space with great care to prevent further progression of the needle into the pleural cavity. The needle was then retracted completely and discarded. A vacuum collection system was attached to the catheter and pleural fluid was collected for analysis. A total of 625mL of pleural fluid was removed. The procedure was terminated due to lack of fluid return. The catheter was then removed during an expiratory breath-hold maneuver. The patient tolerated the procedure well. A post-procedural portable chest x-ray was ordered to assess adequacy of pleural fluid drainage and to evaluate for iatrogenic pneumothorax; results are pending at the time of this report. Specimens: -Pleural fluid sent for cytology, chemistries, and culture Surgeon: Calin Gotti Estimated blood loss (mL): 0 Condition: stable Disposition: same day
--- NOTE | 2023-09-04 13:02 | PC.NURSE ---
Radiology in for PCXR.
--- NOTE | 2023-09-04 13:11 | PC.NURSE ---
Sitting up in bed. Denies c/o dyspnea, pain or other discomforts.VSS. Bandaid to right post. back dry and intact. at bedside.
--- NOTE | 2023-09-04 13:31 | PC.NURSE ---
Chest x-ray resulted, Dr. Gotti notified. Pt. awaits in room for scheduled ECHO. No changes observed. Dressing remains dry to right post chest. Pt. d/c'd from AMB services at this time.
[2023-09-04 16:40] LABS: Cholesterol 59 mg/dL (<=200)
[2023-09-05 11:13] LABS: Amylase, Body Fluid 20 U/L (.); Glucose, Body Fluid 119 mg/dL (.); Protein, Body Fluid 3.7 g/dL (.); Triglycerides, Fluid 21 mg/dL (Not Estab.)
[2023-09-09 16:09] LABS: pH, Body Fluid 8.2 (Not Estab.)
== END 2023-09-15 23:59 | disposition home or self-care (01) ==
LOC: INF 07:30
PROVIDERS: PCP Internal Medicine; Visit Provider Internal Medicine
DX: J90 Pleural effusion, not elsewhere classified (principal); I31.39 Other pericardial effusion (noninflammatory)
CPT/HCPCS: 32554; 36415; 71045; 82150; 82465; 82945; 83986; 84157; 84478; 86038; 86431; 87070; 87102; 87116; 87205; 87206; 89050; 89051; 93308

== ENCOUNTER 2023-09-04 11:21 | Outpatient (OUT) | payer MEDICARE, SELFPAY ==
--- OUTSIDE RECORDS SUMMARY | 2023-09-04 11:40 | XMS_ITS | CCD ---
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 Name Role Phone Ball, Dawit E Unavailable Ball, Dawit E Unavailable Karthik Calloway Unavailable Unavailable Primary Care Provider Unavailabl e Kelechi, Dawit E Primary Care Provider [phone] Kelechi, Dawit E Unavailable Karthik Calloway Unavailable [phone] Ball, Dawit E Primary Care Provider [phone] Ball, Dawit E Unavailable Karthik Calloway Unavailable Unavailabl e Ball DO, Dawit E Primary Care Provider Ball DO, Dawit E Unavailable Elli BECERRIL, Karthik Mathias Unavailable Unavail able REQUEST, NONE LISTED Consulting Unavaila ble REQUEST, NONE LISTED Admitting Unavaila ble BALL, DR ROLDAN Primary Care Unavailable REQUEST, NONE LISTED Attending Unavaila ble BALL, DR ROLDAN Attending Unavailable BALL, DR ROLDAN Consulting Unavailable BALL, DR ROLDAN Admitting Unavailable Ball DO, Dawit E Primary Care Provider Ball DO, Dawit E Unavailable [phone] Karthik Calloway MD Unavailable Unavail able Kelechi, Dawit Unavailable MARGIE LI Referring Unavailab le MARGIE LI Admitting Unavailab le KELECHI, DAWIT E Primary Care Unavailable KELECHI, DAWIT E Primary Care Unavailable FLIP HILL Attending Unavailable KELECHI, DAWIT E Primary Care Unavailable MARGIE LI Attending Unavailab le KELECHI, DAWIT E Primary Care Unavailable NENA BYNUM Attending Unavailable KELECHI DAWIT E Primary Care Unavailable NENA BYNUM Admitting Unavailable NENA BYNUM Referring Unavailable BALL, DAWIT E Primary Care Unavailable STEGINSKY, MARGIE REBECCA Attending UnavailDAWIT Barry Primary Care Unavailable MARGIE LI Attending UnavailDAWIT Barry Primary Care Unavailable MARGIE LI Referring Unavailab MARGIE Buckner Admitting Unavailab MARGIE Buckner Referring Unavailab MARGIE Buckner Admitting Unavailab DAWIT Gonzalez Primary Care Unavailable MARGIE LI Referring Unavailab MARGIE Buckner Admitting Unavailab DAWIT Gonzalez Primary Care Unavailable Allergies Allergy Classification Reported Allergen(s) Allergy Type Date of Onset Reaction(s) Facility (16 sources) acetaminophen / oxyCODONE; Translations: [OXYCODONE-ACETAM INOPHEN] Propensity to adverse reactions to drug 6 Other (See Comments) [facility] Work Phone: (20 sources) traMADol; Translations: [TRAMADOL] Propensity to adverse reactions to drug 5 Shortness Of Breath [facility] Work Phone: (1 source) traMADol Drug Allergy [address] [facility] Medications Current Medications Medication Drug Class(es) Dates Sig (Normalized) Sig (Original) AeroChamber Mini Chamber - (1 source) Start: 07-23-2023 AeroChamber Mini Chamber - Use w/ MDI inhaled every 6 hours as needed for 30 days Jul, Active [id number] actuat albuterol 0.09 mg/actuat metered dose [...] solution (6 sources) Quinolone Antimicrobial Start: 10-05-19 23 take 1 drop(s) into the eye(s) four times daily ciprofloxacin HCl (CILOXAN) 0.3 % ophthalmic solution INSTILL 1 DROP INTO AFFECTED EYE 4 TIMES DAILY 0 10/04/2022 Active codeine phosphate 2 mg/ml / guaiFENesin 20 mg/ml oral solution (2 sources) Opioid Agonist Start: 07-10-19 24 take 10 mL by mouth every six hours as needed for cough guaiFENesin-Codeine 100-10 MG/5ML 10 mL as needed Orally every 6 hours as needed for cough for 7 days Jun, Active diclofenac sodium 0.01 mg/mg topical gel (9 sources) Nonsteroidal Anti-inflammatory Drug Start: 05-13-20 23 diclofenac sodium (Voltaren) 1 % Gel Apply [...] tablet by mouth every morning . Active Colon 3 (11 sources) Colon 3 Active prednisoLONE acetate 10 mg/ml ophthalmic [...] Once a day Active vit A-vit C-vit U-jxlt-qxwfdl (EYE VITAMIN AND MINERALS) 7,160-113-100 ojgz-bx-wjrc Tab (4 sources) take 1 tablet by mouth once daily in the morning vit A-vit C-vit A-ofpe-rfwwik (EYE VITAMIN AND MINERALS) 7,160-113-100 ihll-lv-skro Tab Take 1 tablet by mouth every morning . 0 Active vit A-vit C-vit H-pfgn-yozkvv 7,160-113-100 vmoh-nz-qrby Tab (9 sources) take 1 tablet by mouth once daily in the morning vit A-vit C-vit S-ncec-pnoqvr 7,160-113-100 qqqx-uc-kdcy Tab Take 1 tablet by mouth every morning . 0 Active Vitamin C Oral (1 source) take 1 tablet by mouth once daily in the morning ASCORBATE CALCIUM (VITAMIN C ORAL) Take 1 tablet by mouth every morning . Active Vit A 7,160 Unit-Vit C 113 Mg-Vit E 100 Sdmc-Htlk-Ljjyhq Tablet (2 sources) take 1 tablet by mouth once daily in the morning vit A-vit C-vit E-flxv-aumigi (EYE VITAMIN AND MINERALS) 7,160-113-100 iqxx-wk-mmzl Tab Take 1 tablet by mouth every morning . Active Completed/Discontinued Medications Medication Drug Class(es) Dates Sig (Normalized) Sig (Original) allopurinol 300 mg oral tablet (20 sources) Xanthine Oxidase Inhibitor Start: 01-08-2022 take 1 tablet by mouth once daily Allopurinol 300MG Allopurinol 300MG, 1 (one) Tablet daily # 0, 01/08/2022, No Refill. Active Oral daily for 0 *Pick strength-form from [facility] for eRX* Dec, Not-Taking atorvastatin 10 mg oral tablet (20 sources) HMG-CoA Reductase Inhibitor Start: 08-15-2021 take 1 tablet by mouth once daily in the evening Atorvastatin Calcium 10MG Atorvastatin Calcium 10MG, 1 (one) Tablet Tablet daily in evening # 0, 08/15/2021, No Refill. Active Oral daily in evening for 0 *Pick strength-form from [facility] for eRX* Aug, Not-Taking azithromycin 250 mg [...] Not-Taking/PRN Start: 07-11-2022 take 1 capsule by [facility] twice daily as needed Cephalexin 500 [...] by bkfst for 0 *Pick strength-form from [facility] for eRX* Dec, Not-Taking/PRN Omeprazole 20 mg TAKE 1 CAPSULE DAILY ON AN EMPTY STOMACH, FOLLOWED IN 30 MINUTES BY BREAKFAST Active sildenafil 100 mg oral tablet (11 sources) Phosphodiesterase 5 Inhibitor Start: 01-03-2022 Sildenafil Citrate 100MG Sildenafil Citrate 100MG, 1 (one) Tablet 1 PO PRN ED # 6, 01/03/2022, Ref. x5. Active Oral 1 PO PRN ED for 30 *Pick strength-form from [facility] for eRX* Dec, Not-Taking/PRN Problems Active Problems [...] 5 08-23-2014 Other aftercare (1 source) Other mcc (current) drug therapy Episodic Other circulatory disease [...] source) Cough, unspecified; Translations: [Cough, unspecified] Onset: 03-23-2015 Results Test Name Value Interpretation Reference Range Facility XR KNEE LEFT 4+ VIEWS (SPECI FY VIEWS IN COMMENTS)on 01-16-2023 XR KNEE LEFT 4+ VIEWS (SPECIFY VIEWS IN COMMENTS) X-rays of the left knee from [facility] taken today are reviewed. My personal interpretation is they demonstrate well aligned components in good overall alignment with no interval change from most recent imaging. Although the patella does track well within the trochlear groove it is angled laterally. There is also an evident bony nodule lateral to the patella that has been stable since 2019. There are no findings of fracture, significant osteolysis or loosening. Dictated by: NENA BYNUM on SatJan 16, 2023 10:52:01 AM EDT Transcribed by: NENA BYNUM on SatJan 16, 2023 10:52:01 AM EDT Finalized by: NENA BYNUM on SatJan 16, 2023 10:52:01 AM EDT [facility] Comment on above: Order Comment: Injur y/Trauma [...] on SatAug 28, 2022 1:49:21 PM EDT [facility] Comment on above: Order Comment: Injur y/Trauma [...] SatAug 28, 2022 1:50:20 PM EDT [facility] Comment on above: Order Comment: Injur y/Trauma [...] SatAug 28, 2022 1:49:28 PM EDT [facility] Comment on above: Order Comment: Injur y/Trauma [...] SatAug 28, 2022 1:50:37 PM EDT Normal [facility] Comment on above: Order Comment: Injur y/Trauma or Illness?:Illness/Other How long have you had these symptoms (acute/chronic)?:Unknown Reason for exam?:n/a History of cancer?:n/a Surgeries, chemotherapy, or radiation?:n/a Type of Exam?:Unknown Additional signs and symptoms?:n/a CBC AUTO DIFFon 03-19-2022 BASO # 0.1 103/ul Normal 0.0-0.1 [facility] Comment on above: Performed By: #### D ATCBC #### [facility] [address] [place] [address] Dr. Joni Sanders Basophils/100 WBC (Bld) 1.0 % Normal 0.2-2.[address] [facility] Comment on above: Performed By: #### D ATCBC #### [facility] [address] [place] [address] Dr. Joni Sanders EO # 0.1 103/ul Normal 0.0-0.7 [facility] Comment on above: Performed By: #### D ATCBC #### [facility] [address] [place] [address] Dr. Joni Sanders Eosinophils/100 WBC (Bld) 2.0 % Normal 0.9-7.0 [facility] Comment on above: Performed By: #### D ATCBC #### [facility] [address] [place] [address] Dr. Joni Sanders Erythrocyte distribution width (RBC) [Ratio] 12.4 % Normal 11.0-15.0 [facility] Comment on above: Performed By: #### D ATCBC #### [facility] [address] [place] [address] Dr. Joni Sanders Hematocrit (Bld) [Volume fraction] 43.7 % Normal 42.0-54.[address] [facility] Comment on above: Performed By: #### D ATCBC #### [facility] [address] [place] [address] Dr. Joni Sanders Hemoglobin (Bld) [Mass/Vol] 14.6 g/dL Normal 14.0-18.0 [facility] Comment on above: Performed By: #### D ATCBC #### [facility] [address] [place] [address] Dr. Joni Sanders IG # 0.02 10e3/ul Normal 0.00-0.[address] [facility] Comment on above: Performed By: #### D ATCBC #### [facility] [address] [place] [address] Dr. Joni Sanders IG % 0.3 % Normal 0.0-0.[address] [facility] Comment on above: Performed By: #### D ATCBC #### [facility] [address] [place] [address] Dr. Joni Sanders LYMPH # 2.0 103/ul Normal 1.2-3.[address] [facility] Comment on above: Performed By: #### D ATCBC #### [facility] [address] [place] [address] Dr. Joni Sanders Lymphocytes/100 WBC (Bld) 33.3 % Normal 20.5-60.[address] [facility] Comment on above: Performed By: #### D ATCBC #### [facility] [address] [place] [address] Dr. Joni Sanders MCH (RBC) [Entitic mass] 32.6 pg Normal 25.9-34.[address] [facility] Comment on above: Performed By: #### D ATCBC #### [facility] [address] [address] [address] Joni Sanders MCHC (RBC) [Mass/Vol] 33.4 g/dL Normal 29.9-35.[address] [facility] Comment on above: Performed By: #### D ATCBC #### [facility] [address] [place] [address] Dr. Joni Sanders MCV (RBC) [Entitic vol] 97.5 fL Critically high 80.0-94.[address] [facility] Comment on above: Performed By: #### D ATCBC #### [facility] [address] [place] [address] Dr. Joni Sanders MONO # 0.6 103/ul Normal 0.3-0.8 [facility] Comment on above: Performed By: #### D ATCBC #### [facility] [address] [place] [address] Dr. Joni Sanders Monocytes/100 WBC (Bld) 9.8 % Normal 1.7-12.0 [facility] Comment on above: Performed By: #### D ATCBC #### [facility] [address] [place] [address] Dr. Joni Sanders NEUT # 3.2 103/ul Normal 1.4-6.5 [facility] Comment on above: Performed By: #### D ATCBC #### [facility] [address] [place] [address] Dr. Joni Sanders Neutrophils/100 WBC (Bld) 53.6 % Normal 43.0-75.[address] [facility] Comment on above: Performed By: #### D ATCBC #### [facility] [address] [place] [address] Dr. Joni Sanders Platelet mean volume (Bld) [Entitic vol] 9.9 fL Normal 9.5-13.[address] [facility] Comment on above: Performed By: #### D ATCBC #### [facility] [address] [place] [address] Dr. Joni Sanders PLT 239 103/ul Normal 150-[address] [facility] Comment on above: Performed By: #### D ATCBC #### [facility] [address] [address] [address] Joni Sanders RBC 4.48 106/ul Critically low 4.70-6.10 [facility] Comment on above: Performed By: #### D ATCBC #### [facility] [address] [address] [address] Joni Sanders WBC 5.9 103/ul Normal 4.0-11.0 [facility] Comment on above: Performed By: #### D ATCBC #### [facility] [address] [address] [address] Joni Sanders SILVIA- BMP WITH LIPIDon 2021 Anion gap [Moles/Vol] 12.7 mmol/L Normal [facility] Comment on above: Performed By: #### D ATBMP #### [facility] [address] [address] [address] Joni Sanders Calcium [Mass/Vol] 9.0 mg/dL Normal 8.5-10.1 [facility] Comment on above: Performed By: #### D ATBMP #### [facility] [address] [address] [address] Joni Sanders Chloride [Moles/Vol] 104 mmol/L Normal 98-107 [facility] Comment on above: Performed By: #### D ATBMP #### [facility] [address] [address] [address] Joni Sanders Cholesterol [Mass/Vol] 188 mg/dL Normal <=[address] [facility] Comment on above: Performed By: #### D ATBMP #### [facility] [address] [address] [address] Joni Sanders Cholesterol in HDL [Mass/Vol] 45 mg/dL Normal 40-60 [facility] Comment on above: Performed By: #### D ATBMP #### [facility] [address] [address] [address] Joni Sanders Cholesterol in LDL [Mass/Vol] 102.2 mg/dL Normal [facility] Comment on above: Performed By: #### D ATBMP #### [facility] [address] [address] [address] Joni Sanders CO2 [Moles/Vol] 27.7 mmol/L Normal 21.0-32.0 [facility] Comment on above: Performed By: #### D ATBMP #### [facility] [address] [address] [address] Joni Sanders Creatinine [Mass/Vol] 1.00 mg/dL Normal 0.70-1.30 [facility] Comment on above: Performed By: #### D ATBMP #### [facility] [address] [address] [address] Joni Sanders EGFR-AF MONGOLIAN >60 Normal >=60 [facility] Comment on above: Performed By: #### D ATBMP #### [facility] [address] [address] [address] Joni Sanders EGFR-NON AF MONGOLIAN >60 Normal >=60 [facility] Comment on above: Performed By: #### D ATBMP #### [facility] [address] [address] [address] Joni Sanders Glucose [Mass/Vol] 107 mg/dL Critically high 74-106 [facility] Comment on above: Performed By: #### D ATBMP #### [facility] [address] [address] [address] Joni Sanders HDL NORMAL > or = 60 mg/dl - LOW CARDIOVASCULAR RISK <40 mg/dl - HIGH CARDIOVASCULAR RISK Normal [facility] Comment on above: Performed By: #### D ATBMP #### [facility] [address] [address] [address] Joni Sanders LDL CALC NORMAL SEE BELOW Normal [facility] Comment on above: Result Comment: <100 mg/dl OPTIMAL 100 - 129 mg/dl NEAR OR ABOVE OPTIMAL 130 - 159 mg/dl BORDERLINE HIGH 160 - 189 mg/dl HIGH >190 mg/dl VERY HIGH Performed By: #### D ATBMP #### [facility] [address] [address] [address] Joni Sanders Potassium [Moles/Vol] 4.4 mmol/L Normal 3.5-5.1 [facility] Comment on above: Performed By: #### D ATBMP #### [facility] [address] [address] [address] Joni Sanders Sodium [Moles/Vol] 140 mmol/L Normal 136-145 [facility] Comment on above: Performed By: #### D ATBMP #### [facility] [address] [address] [address] Joni Sanders Triglyceride [Mass/Vol] 204 mg/dL Critically high <=150 [facility] Comment on above: Performed By: #### D ATBMP #### [facility] [address] [address] [address] Joni Sanders Urea nitrogen [Mass/Vol] 22.0 mg/dL Critically high 7.0-18.0 [facility] Comment on above: Performed By: #### D ATBMP #### [facility] [address] [place] [address] Dr. Joni Sanders Urea nitrogen/Creatinine [Mass ratio] 22.0 mg/mg Normal [facility] Comment on above: Performed By: #### D ATBMP #### [facility] [address] [place] [address] Dr. Joni Sanders VLDL CALC 40.8 mg/dL Normal [facility] Comment on above: Performed By: #### D ATBMP #### [facility] [address] [address] [address] Joni Arceo 12-16-2020 CNPN Telephone ([facility]) BRYAN HARRIS ([id number]) 1950 Date Time Provider Department 12/16/20 REBECCA IVEY [facility] During your visit today, we recorded the following information about you: Yesenia Arellano Pss 12/16/2020 9:43 AM Signed Patient has questions about past procedure Ph. [phone] Jessica Devlin RN 12/16/2020 12:09 PM Signed [...] Fully Assessed Reason for Visit: Patient Question [2087] Prescriptions as of 12/16/2020 - allopurinol (ZYLOPRIM) [...] Encounter Status:Closed by JESSICA DEVLIN on 12/16/20 [facility] 12-15-2020 CNOV Office Visit ([facility]) BRYAN HARRIS ([id number]) 1950 M Date Time Provider Department 12/15/20 11:30 AM [...] for internal providers or letter via the [employer] for external providers. 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 This test has not been FDA cleared [...] is terminated or revoked sooner. PERFORMED BY: [place] [address] PATHOLOGIST HORSE TRADER KATHY HENDRICKSON M.D. Performed By: #### C OVID-19 [facility] #### [address] CBC Without Differentialon 0 09-17-2020 Erythrocyte distribution width (RBC) [Ratio] 13.4 % Normal 12.0-14.8 [facility] Comment on above: Performed By: #### O UTREACH LIPID, CBCNOOUTREACH, OUTREACH CMP #### [address] Hematocrit (Bld) [Volume fraction] 42.2 % Normal 38.8-50.0 [facility] Comment on above: Performed By: #### O UTREACH LIPID, CBCNOOUTREACH, OUTREACH CMP #### [address] Hemoglobin (Bld) [Mass/Vol] 14.4 g/dL Normal 13.0-17.0 [facility] Comment on above: Performed By: #### O UTREACH LIPID, CBCNOOUTREACH, OUTREACH CMP #### [address] [id number] [place] MCH (RBC) [Entitic mass] 33.2 pg Normal 27.5-35.2 [facility] Comment on above: Performed By: #### O UTREACH LIPID, CBCNOOUTREACH, OUTREACH CMP #### [facility] [address] MCV (RBC) [Entitic vol] 97.5 fL Normal 83.5-101 [facility] Comment on above: Performed By: #### O UTREACH LIPID, CBCNOOUTREACH, OUTREACH CMP #### [facility] [address] Mean Corpuscular HGB Conc 34.1 g/dL Normal 32.5-35.6 [facility] Comment on above: Performed By: #### O UTREACH LIPID, CBCNOOUTREACH, OUTREACH CMP #### [address] Platelet mean volume (Bld) [Entitic vol] 9.5 fL Normal 6.6-10.1 [facility] Comment on above: Result Comment: PERF ORMED BY: [place] [address] PATHOLOGIST HORSE TRADER KATHY HENDRICKSON M.D. Performed By: #### O UTREACH LIPID, CBCNOOUTREACH, OUTREACH CMP #### [facility] [address] [place] [address] [place] Platelets (Bld) [#/Vol] 216 10*3/uL Normal 150-450 [facility] Comment on above: Performed By: #### O UTREACH LIPID, CBCNOOUTREACH, OUTREACH CMP #### [facility] [address] [place] [address] [place] RBC (Bld) [#/Vol] 4.33 10*6/uL Normal 3.90-5.60 [facility] Comment on above: Performed By: #### O UTREACH LIPID, CBCNOOUTREACH, OUTREACH CMP #### [facility] [address] [place] [address] [place] WBC (Bld) [#/Vol] 6.7 10*3/uL Normal 4.1-10.5 [facility] Comment on above: Performed By: #### O UTREACH LIPID, CBCNOOUTREACH, OUTREACH CMP #### [facility] [address] [place] [address] [place] CMP Outreachon 09-17-2020 Albumin [Mass/Vol] 4.2 g/dL Normal 3.2-5.5 [facility] Comment on above: Performed By: #### O UTREACH LIPID, CBCNOOUTREACH, OUTREACH CMP #### [facility] [address] [place] [address] ALP [Catalytic activity/Vol] 49 U/L Normal 32-92 [facility] Comment on above: Performed By: #### O UTREACH LIPID, CBCNOOUTREACH, OUTREACH CMP #### [facility] [address] [place] [address] [place] ALT [Catalytic activity/Vol] 43 U/L Normal 10-60 [facility] Comment on above: Performed By: #### O UTREACH LIPID, CBCNOOUTREACH, OUTREACH CMP #### [facility] [address] [place] [address] [place] AST [Catalytic activity/Vol] 36 U/L Normal 10-42 [facility] Comment on above: Performed By: #### O UTREACH LIPID, CBCNOOUTREACH, OUTREACH CMP #### [facility] [address] [place] [address] [place] Bilirubin [Mass/Vol] 0.7 mg/dL Normal 0.3-1.2 [facility] Comment on above: Performed By: #### O UTREACH LIPID, CBCNOOUTREACH, OUTREACH CMP #### [facility] [address] [place] [address] [place] Calcium [Mass/Vol] 8.9 mg/dL Normal 8.2-10.2 [facility] Comment on above: Performed By: #### O UTREACH LIPID, CBCNOOUTREACH, OUTREACH CMP #### [facility] [address] [place] [address] [place] Chloride [Moles/Vol] 102 mmol/L Normal 95-114 [facility] Comment on above: Performed By: #### O UTREACH LIPID, CBCNOOUTREACH, OUTREACH CMP #### [facility] [address] CO2 [Moles/Vol] 26.5 mmol/L Normal 22.0-30.0 [facility] Comment on above: Performed By: #### O UTREACH LIPID, CBCNOOUTREACH, OUTREACH CMP #### [address] Creatinine [Mass/Vol] 1.01 mg/dL Normal 0.64-1.27 [facility] Comment on above: Performed By: #### O UTREACH LIPID, CBCNOOUTREACH, OUTREACH CMP #### [place] [address] [place] Estimated GFR ( Rena > 60 Normal [facility] Comment on above: Result Comment: GFR estimated reference range: According to KDOQI guidelines, <60 ml/min/1.73m2 is sufficient to diagnose a patient with chronic kidney disease. Performed By: #### O UTREACH LIPID, CBCNOOUTREACH, OUTREACH CMP #### [facility] [address] [place] [address] [place] Estimated GFR (Non- Am > 60 [facility] Comment on above: Performed By: #### O UTREACH LIPID, CBCNOOUTREACH, OUTREACH CMP #### [facility] [address] [place] [address] [place] Glucose [Mass/Vol] 101 mg/dL High 70-100 [facility] Comment on above: Result Comment: [place] om Glucose Reference Range is dependent on time and content of last meal. Glucose of more than 200 mg/dL in a nonstressed, ambulatory subject supports the diagnosis of Diabetes Mellitus. ADA recommended reference range Performed By: #### O UTREACH LIPID, CBCNOOUTREACH, OUTREACH CMP #### [address] [place] [id number] [facility] Potassium [Moles/Vol] 4.0 mmol/L Normal 3.5-5.1 [facility] Comment on above: Performed By: #### O UTREACH LIPID, CBCNOOUTREACH, OUTREACH CMP #### [facility] [address] Protein [Mass/Vol] 7.3 g/dL Normal 6.1-7.9 [facility] Comment on above: Performed By: #### O UTREACH LIPID, CBCNOOUTREACH, OUTREACH CMP #### [facility] [address] [place] [address] [place] Sodium [Moles/Vol] 139 mmol/L Normal 136-146 [facility] Comment on above: Performed By: #### O UTREACH LIPID, CBCNOOUTREACH, OUTREACH CMP #### [facility] [address] Urea nitrogen [Mass/Vol] 18 mg/dL Normal 9-23 [facility] Comment on above: Performed By: #### O UTREACH LIPID, CBCNOOUTREACH, OUTREACH CMP #### [facility] [address] [address] Lipid Profile [facility] Cholesterol [Mass/Vol] 178 mg/dL Normal 140-200 [facility] Comment on above: Result Comment: Chol less than 200 mg/dl low risk Chol 201-239 mg/dl borderline risk Chol 240 mg/dl and greater high risk Performed By: #### O UTREACH LIPID, CBCNOOUTREACH, OUTREACH CMP #### [facility] [address] [place] [address] [place] Cholesterol in HDL [Mass/Vol] 38 mg/dL Normal 29-71 [facility] Comment on above: Result Comment: HDL CHOL ATP-III CLASSIFICATION Cardiovascular Risk HDL > or equal to 60 mg/dL LOW HDL < 40 mg/dL HIGH Performed By: #### O UTREACH LIPID, CBCNOOUTREACH, OUTREACH CMP #### [facility] [address] [place] [id number] [facility] Cholesterol.total/Ch olesterol in HDL [Mass ratio] 4.7 {ratio} Normal <5.0 [facility] Comment on above: Result Comment: PERF ORMED BY: [place] [address] PATHOLOGIST HORSE TRADER KATHY HENDRICKSON M.D. Performed By: #### O UTREACH LIPID, CBCNOOUTREACH, OUTREACH CMP #### [facility] [address] LDL Cholesterol,Calculat ed 102 mg/dL High 0-100 [facility] Comment on above: Result Comment: LDL ATP III CLASSIFICATION LDL less than 100 mg/dL Optimal LDL 100-129 mg/dL Near or above optimal LDL 130-159 mg/dL Borderline high LDL 160-189 mg/dL High LDL greater than 189 mg/dL Very high Performed By: #### O UTREACH LIPID, CBCNOOUTREACH, OUTREACH CMP #### [address] Triglyceride w/Reflex 188 mg/dL High 35-149 [facility] Comment on above: Result Comment: TRIG ATP III CLASSIFICATION TRIG less than 150 mg/dL Normal TRIG 150-199 mg/dL Borderline high TRIG 200-500 mg/dL High TRIG greater than 500 mg/dL Very high Standard traceable to the Center for Disease Conrtrol and Prevention (CDC) test method. Performed By: #### O UTREACH LIPID, CBCNOOUTREACH, OUTREACH CMP #### [address] VLDL CHOLESTEROL 37 mg/dL Normal [facility] Comment on above: Performed By: #### O UTREACH LIPID, CBCNOOUTREACH, OUTREACH CMP #### [facility] [address] [place] [address] Vital Signs Date Time Vital Sign Value Performing Clinician Faci lity 07-23-2023 13:30-0500 Body height 182.88 cm [employer] Other [facility] Other 07-23-2023 13:30-0500 Body mass index (BMI) [Ratio] 31.16 kg/m2 [employer] Other [facility] Other 07-23-2023 13:30-0500 Body weight 104.24 kg Dawit Ball Other [facility] Other 07-23-2023 13:30-0500 Diastolic blood pressure 81 mm[Hg] Dawit Ball Other [facility] Other 07-23-2023 13:30-0500 Respiratory rate 12 /min Dawit Ball Other [facility] Other 07-23-2023 13:30-0500 Systolic blood pressure 133 mm[Hg] Dawit Ball Other [facility] Other 04-22-2023 10:00-0500 Body height 182.88 cm Dawit Ball Other [facility] Other 04-22-2023 10:00-0500 Body mass index (BMI) [Ratio] 30.78 kg/m2 Dawit Ball Other [facility] Other 04-22-2023 10:00-0500 Body weight 102.97 kg Dawit Ball Other [facility] Other 04-22-2023 10:00-0500 Diastolic blood pressure 111 mm[Hg] Dawit Ball Other [facility] Other 04-22-2023 10:00-0500 Respiratory rate 12 /min Dawit Ball Other [facility] Other 04-22-2023 10:00-0500 Systolic blood pressure 164 mm[Hg] Dawit Ball Other [facility] Other 02-11-2023 15:16-0400 Body height 182.9 cm Margie Li DO Work Phone: [facility] 02-11-2023 15:16-0400 Body mass index (BMI) [Ratio] 29.84 kg/m2 Margie Li DO Work Phone: [facility] 02-11-2023 15:16-0400 Body weight 99.79 kg Margie Li DO Work Phone: [facility] 01-16-2023 09:46-0400 Body height 182.9 cm Nena Bynum DO Work Phone: [facility] 01-16-2023 09:46-0400 Body mass index (BMI) [Ratio] 29.84 kg/m2 Nena Bynum DO Work Phone: [facility] 01-16-2023 09:46-0400 Body weight 99.79 kg Nena Bynum DO Work Phone: [facility] 01-10-2023 10:00-0400 Body height 182.88 cm Dawit Ball Other [employer] Other 01-10-2023 10:00-0400 Body mass index (BMI) [Ratio] 30.11 kg/m2 Dawit Ball Other [facility] Other 01-10-2023 10:00-0400 Body weight 100.7 kg Dawit Ball Other [facility] Other 01-10-2023 10:00-0400 Diastolic blood pressure 90 mm[Hg] Dawit Ball Other [facility] Other 01-10-2023 10:00-0400 Respiratory rate 12 /min Dawit Ball Other [facility] Other 01-10-2023 10:00-0400 Systolic blood pressure 134 mm[Hg] Dawit Ball Other [facility] Other 11-19-2022 13:38-0400 Body height 182.9 cm Margie Li DO Work Phone: [facility] 11-19-2022 13:38-0400 Body mass index (BMI) [Ratio] 30.24 kg/m2 Margie Steginsky DO Work Phone: [facility] 11-19-2022 13:38-0400 Body weight 101.15 kg Margie Steginsky DO Work Phone: [facility] 10-08-2022 13:20-0400 Body height 182.9 cm Flip Munsona PA-C Work Phone: [facility] 10-08-2022 13:20-0400 Body mass index (BMI) [Ratio] 30.24 kg/m2 Flip Hill PA-C Work Phone: [facility] 10-08-2022 13:20-0400 Body weight 101.15 kg Flip Hill PA-C Work Phone: [facility] 08-28-2022 13:16-0400 Body height 182.9 cm Margie Steginsky DO Work Phone: [facility] 08-28-2022 13:16-0400 Body mass index (BMI) [Ratio] 30.24 kg/m2 Margie Steginsky DO Work Phone: [facility] 08-28-2022 13:16-0400 Body weight 101.15 kg Margie Steginsky DO Work Phone: [facility] 07-20-2020 14:44-0500 BMI (Body Mass Index) 30.24 kg/m2 Nena [facility] 07-20-2020 14:44-0500 Body weight 101.15 kg Nena [facility] 07-20-2020 14:44-0500 Height 182.9 cm Nena [facility] 07-01-2019 09:59-0500 BMI (Body Mass Index) 30.79 kg/m2 Nena [facility] 07-01-2019 09:59-0500 Body weight 102.97 kg Nena [facility] 07-01-2019 09:59-0500 Height 182.9 cm Nena [facility] 07-30-2017 11:30-0500 BMI (Body Mass Index) 30.79 kg/m2 Karthik Calloway [facility] Work Phone: 07-30-2017 11:30-0500 Height 182.9 cm Karthik Calloway [employer] [facility] Work Phone: 07-30-2017 11:30-0500 Weight 102.97 kg Karthik Calloway [facility] Work Phone: 01-29-2017 12:07-0400 BMI (Body Mass Index) 29.97 kg/m2 Karthik Calloway [facility] Work Phone: 01-29-2017 12:07-0400 Height 182.9 cm Karthik Calloway [facility] Work Phone: 01-29-2017 12:07-0400 Weight 100.25 kg Karthik Calloway [employer] [facility] Work Phone: Encounters Encounter Date Encounter Type Care Provider Facility Start: 07-23-2023 End: 07-23-2023 ambulatory Dawit Lorenz Other [facility] Other Start: 07-23-2023 Patient encounter procedure Dawit Lorenz [facility] Start: 07-10-2023 End: 07-10-2023 ambulatory Dawit Lorenz Other [employer] Other Start: 07-10-2023 Telephone encounter Dawit Lorenz [facility] Start: 07-08-2023 End: 07-08-2023 ambulatory Dawit Lorenz Other [facility] Other Start: 07-08-2023 Telephone encounter Dawit Lorenz [facility] Start: 07-07-2023 End: 07-07-2023 ambulatory Dawit Lorenz Other [facility] Other Start: 07-07-2023 Telephone encounter Dawit Lorenz [facility] Start: 06-25-2023 End: 06-25-2023 Orders Only Janet Spangler MA [facility] Comment on above: Status post total kn ee replacement, bilateral (Primary Dx) Start: 06-25-2023 Telephone encounter Dawit VILLAFUERTE G [facility] Start: 05-07-2023 End: 05-07-2023 ambulatory Dawit Lorenz Other [facility] Other Start: 05-07-2023 Telephone encounter Dawit VILLAFUERTE G [facility] Start: 04-24-2023 End: 04-24-2023 ambulatory Dawit Lorenz Other [facility] Other Start: 04-24-2023 Telephone encounter Dawit Georges [facility] Start: 04-22-2023 End: 04-22-2023 ambulatory Daiwt Lorenz Other [facility] Other Start: 04-22-2023 Patient encounter procedure Dawit Lorenz [facility] Start: 04-19-2023 End: 04-19-2023 ambulatory Dawit Lorenz Other [employer] Other Start: 04-19-2023 Telephone encounter Dawit Georges [facility] Start: 04-17-2023 End: 04-17-2023 ambulatory Dawit Lorenz Other [facility] Other Start: 04-17-2023 Telephone encounter Dawit Georges [facility] Start: 02-11-2023 End: 02-11-2023 Phys/qhp telephone evaluation 5-10 min Margie Li DO Work Phone: [facility] Comment on above: Hallux rigidus of le ft foot (Primary Dx) Start: 02-11-2023 End: 02-15-2023 James Spangler MA [facility] Start: 01-16-2023 End: 01-20-2023 ambulatory DAWIT LORENZ [facility] Start: 01-16-2023 End: 01-16-2023 Office outpatient visit 10 minutes Nena Bynum DO Work Phone: [facility] Comment on above: Status post total kn ee replacement, bilateral (Primary Dx) Start: 01-10-2023 End: 01-10-2023 ambulatory Dawit Lorenz Other [facility] [employer] Other Start: 01-10-2023 Patient encounter procedure Dawit [facility] Start: 11-19-2022 End: 11-19-2022 ambulatory DAWIT LORENZ [facility] Start: 11-19-2022 End: 11-19-2022 Office outpatient visit 15 minutes Margie Li DO Work Phone: [facility] Comment on above: Hallux rigidus of le ft foot (Primary Dx) Start: 10-08-2022 End: 10-08-2022 ambulatory DAWIT LORENZ [facility] Start: 10-08-2022 End: 10-08-2022 Office outpatient visit 5 minutes Flip Hill PA-C Work Phone: [facility] Comment on above: Hallux rigidus of le ft foot (Primary Dx); Metatarsalgia, left foot Start: 08-30-2022 Refill Janet Spangler MA [facility] Start: 08-28-2022 End: 09-01-2022 Refill Becca Carrasco Academic Support Assistant [facility] Start: 08-28-2022 End: 08-28-2022 Office outpatient new 30 minutes Margie Li DO Work Phone: [facility] Comment on above: Hallux rigidus of le ft foot (Primary Dx); Eaton's metatarsalgia, left Start: 03-19-2022 End: 03-20-[address] NONE LISTED REQUEST Facility: Start: 08-11-2021 Refill Nena spencer DO Work Phone: [facility] Comment on above: Status post total kn ee replacement, bilateral (Primary Dx) Start: 08-11-2020 End: 08-11-2020 Orders Only Ana Todd Work Phone: [facility] Start: 07-20-2020 End: 07-20-2020 Office outpatient visit 10 minutes Nena Bynum Work Phone: [facility] Comment on above: Status post total kn ee replacement, bilateral (Primary Dx) Start: 07-01-2019 End: 07-01-2019 Office outpatient visit 10 minutes Nena Bynum Work Phone: [facility] Comment on above: Status post total kn ee replacement, bilateral (Primary Dx) Start: 07-30-2017 Office/outpatient vi sit, est, level 3 Karthik Calloway Work Phone: [facility] Start: 01-29-2017 End: 01-29-2017 Office outpatient visit 15 minutes Karthik Calloway Work Phone: [facility] Comment on above: 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);Status post total right knee replacement Procedures Date Procedure Procedure Detail Performing Clinician Start: 10-08-2022 Follow-up visit Follow-up [facility] Start: 03-19-[address] JOANNE NGUYEN REQUEST Comment on above: Performed By: #### P [facility] #### [facility] [address] [place] [address] Dr. Joni Sanders Screening for malign ant neoplasm of colon Dawit Lorenz Other Plan of Treatment Date Care Activity Detail Author Start: 08-30-2028 Tetanus vaccination Tetanus: Every 10yrs [facility] Start: 02-15-2023 COVID-19 Vaccine ( season) COVID-19 Vaccine ( season) [facility] Start: 02-15-2023 Influenza vaccination [facility] Start: 02-11-2023 End: 02-11-2023 Patient encounter procedure 02/11/2023 1:15 PM EDT Office Visit [facility] [address] [place] [address] Margie Li DO [address] [place] [address] [facility] Start: 01-14-2023 End: 01-14-2023 Patient encounter procedure 01/14/2023 1:15 PM EDT Office Visit [facility] [address] [place] [address] Marige Li, DO [address] [place] [address] [facility] Start: 11-19-2022 End: 11-19-2022 Patient encounter procedure 11/19/2022 1:30 PM EDT Office Visit [facility] [address] [place] [address] Margie Li, DO [address] [place] [address] [facility] Start: 10-08-2022 End: 10-08-2022 Patient encounter procedure 10/08/2022 Office Visit Orthopedic Surgery Margie Li, DO [address] [place] [address] [facility] Start: 02-15-2022 Influenza vaccination Sequential Influenza Vaccine (#1) [facility] Start: 07-05-2021 COVID-19 Vaccine (4 - Booster for Pfizer series) COVID-19 Vaccine (4 - Booster for Pfizer series) [facility] Start: 07-05-2021 COVID-19 Vaccine (4 - Pfizer series) COVID-19 Vaccine (4 - Pfizer series) [facility] Start: 07-05-2021 COVID-19 Vaccine (5 - Booster) COVID-19 Vaccine (5 - Booster) [facility] Start: 02-15-2021 Influenza vaccination Sequential Influenza Vaccine (#1) [facility] Start: 07-01-2020 End: 07-01-2020 Office Visit 07/01/2020 Office Visit Orthopedic Surgery Nena Bynum, DO [address] [place] [address] [phone] [facility] Start: 02-16-2020 Influenza vaccination given Sequential Influenza Vaccine (#1) [facility] Start: 06-30-2019 Ambulatory 06/30/2019 Office Visit Orthopedic Surgery Karthik Calloway MD [address] [place] [address] [phone] [facility] Start: 02-15-2019 Influenza vaccination given SEQUENTIAL INFLUENZA VACCINE (#1) [facility] Start: 10-25-2018 Administration of herpes zoster vaccine Zoster Vaccines (2 of 2) [facility] Start: 07-30-2017 Ambulatory 07/30/2017 Office Visit Orthopedic Surgery Karthik Calloway MD [address] [place] [address] [phone] [facility] Start: 02-15-2017 Influenza vaccination SEQUENTIAL INFLUENZA VACCINE (#1) [facility] Work Phone: Start: 02-15-2017 SEQUENTIAL INFLUENZA VACCINE (#1) SEQUENTIAL INFLUENZA VACCINE (#1) [facility] Work Phone: Start: 2016 Fall risk assessment Falls Risk Assessment [facility] Start: 2016 Pneumococcal vaccination PNEUMOCOCCAL VACCINE AGE 65+ (1 of 2 - PCV13) [facility] Work Phone: Start: 2016 PNEUMOCOCCAL VACCINE AGE 65+ (1 of 2 - PCV13) PNEUMOCOCCAL VACCINE AGE 65+ (1 of 2 - PCV13) [facility] Work Phone: Start: 2011 Zoster vacc, sc ZOSTER VACCINE [facility] Work Phone: Start: 2001 Screening for malignant neoplasm of colon [facility] Start: 1969 Hepatitis C antibody, confirmatory test Hepatitis C Screening [facility] Start: 1969 Hepatitis C screening Hepatitis C Screening [facility] Start: 1967 COVID-19 Vaccine (1 of 2) COVID-19 Vaccine (1 of 2) [facility] Start: 1963 Adolescent depression screening assessment Depression Screening (PHQ9) [facility] Start: 1963 Depression screening using PHQ-9 (Patient Health Questionnaire 9) score Depression Screening (PHQ-2/9) [facility] Start: 1956 COVID-19 Vaccine (1) COVID-19 Vaccine (1) [facility] Start: 1954 History and physical examination, annual for health maintenance Wellness Visit [facility] Start: 1951 Colonoscopy COLONOSCOPY [facility] Work Phone: Start: 1951 Fall risk assessment Falls Risk Assessment [facility] Start: 1951 Hepatitis C antibody, confirmatory test HEPATITIS C SCREENING [facility] Start: 1951 Prostate specific antigen measurement PSA Level [facility] Start: 1951 Screening for malignant neoplasm of colon [facility] Start: 1951 TETANUS EVERY 10 YR TETANUS EVERY 10 YR [facility] Work Phone: Start: 1950 End: 1951 HEPATITIS C SCREENING HEPATITIS C SCREENING [facility] Work Phone: Start: 1951 Screening colonoscopy COLONOSCOPY [facility] Work Phone: Start: 1951 End: 1951 Tetanus vaccination [facility] Immunizations Immunization Date Immunization Notes Care Provider Laurie bernal 05-09-2020 influenza virus vaccine, split virus (incl. purified surface antigen) Dawit Lorenz Other [facility] Other 08-30-2018 tetanus and diphther ia toxoids, adsorbed, preservative free, for adult use (5 Lf of tetanus toxoid and 2 Lf of diphtheria toxoid) Dawit Lorenz Other [facility] Other 06-04-2018 tetanus and diphther ia toxoids, adsorbed, preservative free, for adult use (5 Lf of tetanus toxoid and 2 Lf of diphtheria toxoid) Dawit Lorenz Other [facility] Other 02-03-2018 pneumococcal polysaccharide vaccine, 23 valent Dawit Lorenz Other [facility] Other 11-26-2016 pneumococcal conjuga te vaccine, 13 valent Dawit Lorenz Other [facility] Other Payers Date Payer Category Payer Medicare [employer] MANAGED [place] [employer] MEDICARE PLAN (PPO) xxxxxxxx 2016-Present [id number] 2016 Medicare [employer] MANAGED [place] [place] [employer]IC[place] PL[place] (PPO) [id number] 2016-Present [id number] 2016 Medicare [id number] 1959 Medicare [id number] 1959 Self-pay [id number] 1951 Unknown [id number] 1951 Unknown [id number] 1951 Unknown [id number] 1951 Unknown [id number] 1951 Unknown [id number] 1951 Unknown [id number] 1951 Unknown [id number] 1951 Unknown [id number] 1951 Unknown [id number] 1951 Unknown [id number] 1951 Unknown [id number] Medicare [id number] Unknown [id number] Social History Date Type Detail Facility Start: 07-30-2017 End: 08-28-2022 Tobacco smoking status WIIS Never smoker [facility] Work Phone: Start: 1950 Sex Assigned At Not on file [facility] [employer] Work Phone: Start: 07-01-2019 End: 02-11-2023 Alcohol intake Current drinker of alcohol (finding) [facility] Start: 07-20-2020 End: 08-28-2022 Tobacco use and exposure Never used [facility] Start: 08-18-2022 End: 10-08-2022 Exposure to SARS-CoV-2 (event) Not sure [facility] Start: 08-28-2022 End: 02-11-2023 History of Social function [facility] Start: 08-28-2022 End: 02-11-2023 Tobacco use panel [facility] Medical Equipment Procedure Code Equipment Code Equipment Origin al Text Equipment Identifier Dates Cement 1 X 40 Pal[place] Bone Single - [id number] Start: 08-23-2014 Stem Short Cemen prerna Persona - [id number] Start: 08-23-2014 Stem Sz F Tib 5d eg Nonpor Lt Persona - [id number] Start: 08-23-2014 Femoral Sz9 Lt N rw Ps Cmt Ccr Persona - [id number] Start: 08-23-2014 Patella 32mm All Poly Persona - [id number] Start: 08-23-2014 Articular Surf E f 6-9 14mm Lt Ps Vivacit-E Persona - [id number] Start: 08-23-2014 Stem Short Cemen prerna Persona - [id number] Start: 06-25-2016 Patella 32mm All Poly Vivacit-E - [id number] Start: 06-25-2016 Articular Surf 1 4mm 6-9ef Rt Cps Ve Persona - [id number] Start: 06-25-2016 Simplex Hv With Gentamicin Cement Start: 06-25-2016 Stem Sz F Tib 5d eg Nonpor Rt Persona - [id number] Start: 06-25-2016 Femoral Sz9 Rt N rw Ps Cmt Ccr Persona - [id number] Start: 06-25-2016 Cement 1 X 40 [place] Bone Single - [id number] Start: 08-23-2014 Stem Short Cemen prerna Persona - [id number] Start: 08-23-2014 Stem Sz F Tib 5d eg Nonpor Lt Persona - [id number] Start: 08-23-2014 Femoral Sz9 Lt N rw Ps Cmt Ccr Persona - [id number] Start: 08-23-2014 Patella 32mm All Poly Persona - [id number] Start: 08-23-2014 Articular Surf E f 6-9 14mm Lt Ps [employer]-E Persona - [id number] Start: 08-23-2014 Stem Short Cemen prerna Persona - [id number] Start: 06-25-2016 Patella 32mm All Poly [employer]-E - [id number] Start: 06-25-2016 Articular Surf 1 4mm 6-9ef Rt Cps Ve Persona - [id number] Start: 06-25-2016 Simplex Hv With Gentamicin Cement Start: 06-25-2016 Stem Sz F Tib 5d eg Nonpor Rt Persona - [id number] Start: 06-25-2016 Femoral Sz9 Rt N rw Ps [facility] Ccr Persona - [id number] Start: 06-25-2016 Cement 1 X 40 [place] Bone Single - [id number] Start: 08-23-2014 Stem Short Cemedwin graff Persona - [id number] Start: 08-23-2014 Stem Sz F Tib 5d eg Nonpor Lt Persona - [id number] Start: 08-23-2014 Femoral Sz9 Lt N rw Ps [facility] Ccr Persona - [id number] Start: 08-23-2014 Patella 32mm All Poly Persona - [id number] Start: 08-23-2014 Articular Surf E f 6-9 14mm Lt Ps [employer]-E Persona - [id number] Start: 08-23-2014 Stem Short Cemen prerna Persona - [id number] Start: 06-25-2016 Patella 32mm All Poly [employer]-E - [id number] Start: 06-25-2016 Articular Surf 1 4mm 6-9ef Rt Cps Ve Persona - [id number] Start: 06-25-2016 Simplex Hv With Gentamicin Cement Start: 06-25-2016 Stem Sz F Tib 5d eg Nonpor Rt Persona - [id number] Start: 06-25-2016 Femoral Sz9 Rt N rw Ps Cmt Ccr Persona - [id number] Start: 06-25-2016 Cement 1 X 40 [place] Bone Single - [id number] Start: 08-23-2014 Stem Short Cemen prerna Persona - [id number] Start: 08-23-2014 Stem Sz F Tib 5d eg Nonpor Lt Persona - [id number] Start: 08-23-2014 Femoral Sz9 Lt N rw Ps Cmt Ccr Persona - [id number] Start: 08-23-2014 Patella 32mm All Poly Persona - [id number] Start: 08-23-2014 Articular Surf E f 6-9 14mm Lt Ps [employer]it-E Persona - [id number] Start: 08-23-2014 Stem Short Cemen prerna Persona - [id number] Start: 06-25-2016 Patella 32mm All Poly [employer]-E - [id number] Start: 06-25-2016 Articular Surf 1 4mm 6-9ef Rt Cps Ve Persona - [id number] Start: 06-25-2016 Simplex Hv With Gentamicin Cement [id number] Start: 06-25-2016 Stem Sz F Tib 5d eg Nonpor Rt Persona - [id number] Start: 06-25-2016 Femoral Sz9 Rt N rw Ps Cmt Ccr Persona - [id number] Start: 06-25-2016 Clinical Notes 12-15-2020 to [...] exercise to achieve/maint ain a normal BMI. [facility] Other 01-24-2024 Evaluation note* Encounter Date Diagnosis Assessment Notes Treatment Notes Treatment Clinical Notes Jun, Subacute cough (ICD-10 - R05.2) [facility] Other 01-21-2024 Evaluation note* Encounter Date Diagnosis Assessment Notes Treatment Notes Treatment Clinical Notes Jun, Subacute cough (ICD-10 - R05.2) [facility] Other 01-09-2024 Evaluation note* Encounter Date Diagnosis Assessment Notes Treatment Notes Treatment Clinical Notes Jun, Primary hypertension (ICD-10 - I10) [facility] Other 11-21-2023 Evaluation note* Encounter Date Diagnosis Assessment Notes Treatment Notes Treatment Clinical Notes Apr, Acute bronchitis due to other specified organisms (ICD-10 - J20.8) [facility] Other 11-08-2023 Evaluation note* Encounter Date Diagnosis Assessment Notes Treatment Notes Treatment Clinical Notes Apr, Primary hypertension (ICD-10 - I10) [facility] Other 11-06-2023 Evaluation note* Encounter Date Diagnosis [...] specific antigen) (ICD-10 - Z12.5) Yealry PSA [facility] Other 11-01-2023 Evaluation note* Encounter Date Diagnosis Assessment Notes Treatment Notes Treatment Clinical Notes Apr, Screening PSA (prostate specific antigen) (ICD-10 - Z12.5) Apr, Hyperlipidemia type II (ICD-10 - E78.01) Apr, Gastro-esophageal reflux disease with esophagitis, without bleeding (ICD-10 - K21.00) Apr, Fatigue, unspecified type (ICD-10 - R53.83) Apr, High risk medication use (ICD-10 - Z79.899) [facility] Other 08-28-2023 History of Present illness Narrative* Margie Li, - 02/11/2023 2:00 PM EDT Telehealth Visit Via Phone Call Patient: Bryan Harris Date of : 1950 (72 y.o. male) Patient Patient Location: [address] [place] [address] [place] [address] Provider Location: [facility] I discussed risks, benefits and alternatives of [...] there are inherent diagnostic limitations compared to coun-my-fupt evaluations. We elected toproceed with the telephone [...] expedite correspondence this note was generated by [employer] voice recognition software. Somegrammatical or spelling errors may occur using the system. documented in this [id number] History of Present illness Narrative* Nena Bynum DO - 01/16/2023 10:35 AM EDT [facility] [address] [place] [address] Patient Name: Bryan Harris Patient Age: 72 [...] KNEE ARTHROPLASTY; Surgeon: Karthik Calloway MD; Location: [facility]; Service: ARTHROPLASTY KNEE TOTAL Right 06/25/2016 Procedure: RIGHT TOTAL KNEE ARTHROPLASTY ; Surgeon: Karthik Calloway MD; Location: [facility]; Service: BASAL CELL CARCINOMA EXCISION Left [...] mouth every morning . vit A-vit C-vit H-jevp-fuqzhy 7,160-113-100 evlz-bo-vbvn Tab Take 1 tablet by mouth every [...] Imaging: X-rays of the left knee from [facility] taken today are reviewed. My personal interpretation is they demonstrate well aligned components in good overall alignment with no interval change from most recent imaging. Although the patella does track well within the trochlear groove it is angled laterally. There is also an evident bony nodule lateral to the patella that has been stable since 2019. There are no findings of fracture, significant [...] expedite correspondence this note was generated by [employer] voice recognition software. Somegrammatical or spelling errors may occur using the system. documented in this [id number] Evaluation note* Encounter Date Diagnosis Assessment Notes Treatment Notes Treatment Clinical Notes Dec, Laceration of scalp, initial encounter (ICD-10 - S01.01XA) Cleanse scalp w/ soap and water makerSQR Other 06-05-2023 History of Present illness Narrative* [...] the left great toe does not apparently team supervisor the ground. IMAGING: Please see dictated report. ASSESSMENT: Left hallux rigidus Left metatarsalgia PLAN: I performed a left first MTP joint injection at today's visit. Please see separate procedure note. I recommended that we proceed with custom orthotics with a Eaton's extension, built-in metatarsal pad. Order was placed to [facility] orth[facility]. We [facility] [place] We discussed the fact that he would have to be nonweightbearing following the procedure. Thepatient would like to hold off on any surgery at today's visit. We will see him back in 6 weeks. Radiographs next visit: None Margie Li DO Orthopedic Foot and Ankle Surgeon To expedite correspondence, this note was generated by [employer] voice recognition software. Some grammatical or spelling errors may occur using this system. documented in this [id number] History of Present illness Narrative* Flip [place] [...] expedite correspondence, this note was generated by [employer] voice recognition software. Some grammatical or spelling errors may occur using this system. documented in this [id number] History of Present illness Narrative* Margie Li, [...] the left great toe does not apparently team supervisor the ground. IMAGING: Please see dictated report. [...] expedite correspondence, this note was generated by [employer] voice recognition software. Some grammatical or spelling errors may occur using this system. documented in this [id number] NoteHNO ID: [id number] Author: Rebecca Ivey MD Service: ? Author Type: Physician Type: Progress Notes Filed: 12/15/2020 8:14 PM Note Text: COLORECTAL SURGERY December 15, 2020 Bryan Harris 70 year old This consult was requested by and my final recommendations will be communicated to the requesting health care provider by way of the shared medical record for internal providers or letter via the [employer] for external providers. Chief Complaint: [...] exam reveals no gross blood or massses Bottom Liquor Attendant present: Yes, Carter Nunez Anoscopy: The patient [...] of treatment plan: rad[facility]vey [facility] Diagnosis Status post total knee replacement, bilateral- Primary documented in this encounter [facility] note* Diagnosis Hallux rigidus of left foot- Primary Eaton's metatarsalgia, left documented in this encounter [facility] note* Diagnosis Hallux rigidus of left foot- Primary Metatarsalgia, left foot documented in this encounter [facility] note* Diagnosis Hallux rigidus of left foot- Primary documented in this encounter [facility] note* Diagnosis Status post total knee replacement, bilateral- Primary documented in this encounter [facility] note* Diagnosis Hallux rigidus of left foot- Primary documented in this encounter [facility] noteNo [facility] Other Evaluation note* Diagnosis Status post total knee replacement, bilateral- Primary documented in this encounter [facility] Narrative - Reported* Type Description Date Medical History 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 Medical History Benign prostatic hyp erplasia with lower urinary tract symptoms Medical History Hyperlipidemia type II Medical History Gastro-esophageal re flux disease with esophagitis, without bleeding Surgical History both knee replaced Surgical History hand surgery Hospitalization History SEE ABOVE makerSQR Other Assessments Diagnosis Primary osteoarthritis of ri [...] note may be different from the original. [facility] [address] [facility], [facility] [phone] [place] [address] Patient Name: Bryan Harris Patient Age: 66 [...] note may be different from the original. [facility] [address] [place] [address] Patient Name: Bryan Harris Patient Age: 66 [...] Bynum, DO - 07/01/2019 10:05 AM EST [facility] [address] [place] [address] Patient Name: Bryan Harris Patient Age: 69 [...] KNEE ARTHROPLASTY; Surgeon: Karthik Calloway MD; Location: [facility]; Service: ARTHROPLASTY KNEE TOTAL Right 06/25/2016 Procedure: RIGHT TOTAL KNEE ARTHROPLASTY ; Surgeon: Karthik Calloway MD; Location: [facility]; Service: BASAL CELL CARCINOMA EXCISION Left 11/2014 [...] file Gets together: Not on file Attends caodaism service: Not on file Active member of [...] mouth every morning . vit A-vit C-vit U-gucm-fenryq (EYE VITAMIN AND MINERALS) 7,160-113-100 ccnd-hu-iqin Tab Take 1 tablet by mouth every [...] with no interval change from most recentimaging. [place] view shows the patella tracks well without [...] expedite correspondence this note was generated by [employer] voice recognition software. Somegrammatical or spelling errors may occur using the system. documented in this encounter* Nena Bynum, - 07/20/2020 2:42 PM EST [facility] [address] [place] [id number] Patient Name: Bryan Harris Patient Age: 70 y.o. Patient : 1950 Date: 07/20/20 Progress Note HPI: Bryan Harris is a 70 y.o. male who is status post bilateral total knee arthroplasty. Both surgeries performed by Dr. Mera, left side in 2014 and right side in 2016. Patient is doing well and [...] KNEE ARTHROPLASTY; Surgeon: Karthik Calloway MD; Location: [facility]; Service: ARTHROPLASTY KNEE TOTAL Right 06/25/2016 Procedure: RIGHT TOTAL KNEE ARTHROPLASTY ; Surgeon: Karthik Calloway MD; Location: [facility]; Service: BASAL CELL CARCINOMA EXCISION Left [...] file Gets together: Not on file Attends caodaism service: Not on file Active member of [...] mg by mouth daily. vit A-vit C-vit L-egjp-kuxzxb (EYE VITAMIN AND MINERALS) 7,160-113-100 gqdl-hw-rfcg Tab Take 1 tablet by mouth every [...] with no interval change from most recentimaging. [place] view shows the patella tracks well in [...] expedite correspondence this note was generated by [employer] voice recognition software. Somegrammatical or spelling errors may occur using the system. 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 Start Date End Date Dawit Lorenz, DO [address] [place] [place] [address] [place] [address] PCP - General Internal Medicine 06/29/14 Dawit Lorenz DO [address] [place] [place] [address] [place] [address] Internal Medicine 06/29/14 Karthik Calloway MD Consulting Physician Orthopedic Surgery 01/28/17 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 Start Date End Date Dawit Lorenz DO [address] [place] [place] [address] [place] [address] PCP - General Internal Medicine 06/29/14 Dawit Lorenz, DO [address] [place] [place] [address] [address] [place] [address] Internal Medicine 06/29/14 Karthik Calloway MD [address] [place] [place] [address] [address] [place] [address] Consulting Physician Orthopedic Surgery 01/28/17 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 Start Date End Date Dawit Lorenz DO [address] [place] [place] [address] [address] [place] [address] PCP - General Internal Medicine 06/29/14 Dawit Lorenz DO [address] [place] [place] [address] [address] [place] [address] Internal Medicine 06/29/14 Karthik Calloway MD [address] [place] [place] [address] [address] [place] [address] Consulting Physician Orthopedic Surgery 01/28/17 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 Start Date End Date Dawit Loernz, DO [address] [facility] [place] [address] PCP - General Internal Medicine 06/29/14 Dawit Lorenz DO [address] [place] [place] [address] Internal Medicine 06/29/14 Karthik Calloway MD [address] [place] [place] [address] Consulting Physician Orthopedic Surgery 01/28/17 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 Start Date End Date Dawit Lorenz DO [address] [facility] [place] [address] PCP - General Internal Medicine 06/29/14 Dawit Lorenz DO [address] [facility] [place] [address] Internal Medicine 06/29/14 Karthik Calloway MD [address] [place] [place] [address] Consulting Physician Orthopedic Surgery 01/28/17 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 Start Date End Date Dawit Lorenz DO [address] [facility] [place] [address] PCP - General Internal Medicine 06/29/14 Dawit Lorenz DO [address] [place] [place] [address] Internal Medicine 06/29/14 Karthik Calloway MD [address] [place] [place] [address] Consulting Physician Orthopedic Surgery 01/28/17 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 Start Date End Date Dawit Lorenz DO [address] [facility] [place] [address] PCP - General Internal Medicine 06/29/14 Dawit Lorenz DO [address] [place] [place] [address] Internal Medicine 06/29/14 Karthik Calloway MD [address] [place] [place] [address] Consulting Physician Orthopedic Surgery 01/28/17 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 Start Date End Date Dawit Lorenz DO [address] [facility] [place] [address] PCP - General Internal Medicine 06/29/14 Dawit Lorenz DO [address] [facility] [place] [address] Internal Medicine 06/29/14 Karthik Calloway MD [address] [place] [address] [place] [address] Consulting Physician Orthopedic Surgery 01/28/17 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 [facility]. provides no warranty or guarantee of the accuracy or completeness of information in this document.
--- NOTE | 2023-09-04 13:30 | CA_ITS ---
Patient Name: SAV RAYMUNDO MR#: [id number] : 1950 Exam Date: 09/04/2023 Ordering Doctor: DR Dawit Lorenz D.O. ECHOCARDIOGRAM REPORT PROCEDURE: CA ECHO LIMITED INDICATIONS: Pericardial effusion COMPARISON: None. DESCRIPTION: Limited ECHOCARDIOGRAM Real-time transthoracic echocardiography with 2D and M-mode performed. QUALITY: Limited echocardiogram per physician order. LEFT VENTRICLE: Normal chamber size. Normal left ventricular wall thickness. LV EF: Global left ventricular systolic function is difficult to assess but appears preserved; visually estimated ejection fraction is 50 to 55%. Unable to assess regional wall motion abnormalities. LEFT ATRIUM: Normal chamber size. RIGHT ATRIUM: Normal chamber size. RIGHT VENTRICLE: Normal chamber size. Normal systolic function. TRICUSPID VALVE: Normal mobility and thickness. MITRAL VALVE: Normal mobility and thickness. There is no mitral annular calcification. AORTIC VALVE: Normal trileaflet appearance. No visible sclerosis. Normal leaflet mobility. AORTIC ROOT: Inadequately visualized. PULMONIC VALVE: Not well visualized. PERICARDIUM: Anterior free space; trivial effusion versus fat pad. IVC: IVC is dilated (2.7 cm) with no collapse. CONCLUSION: 1. Global left ventricular systolic function is difficult to assess but appears preserved; visually estimated ejection fraction is 50 to 55% 2. Normal right ventricular size and systolic function 3. Anterior free space; trivial effusion versus fat pad A limited echocardiogram was performed Adult Echocardiography Procedure Report Left Ventricle LVEDD (3.7 - 5.6 cm): 4.97 cm LVESD (2.2 - 4.0 cm): 3.53 cm LVIVS thickness (0.6 - 1.2 cm): 0.85 cm LVPW thickness (0.5 - 1.0 cm): 0.85 cm LVOT Diameter 2.14 cm Left Atrium Left Atrium Systolic Dimension: 3.28 cm Mitral Valve Right Ventricle Aorta AO Root Diam: 2.90 cm Aortic Valve Tricuspid Valve Pulmonic Valve Right Atrium Dictated by: Joanna Villela M.D. on 09/05/2023 at 14:01 Approved by: Joanna Villela M.D. on 09/05/2023 at 14:05
== END 2023-09-04 11:22 | disposition home or self-care (01) ==
LOC: CARD 11:22
PROVIDERS: PCP Internal Medicine; Visit Provider Internal Medicine
DX: I31.39 Other pericardial effusion (noninflammatory) (principal)
CPT/HCPCS: 93308

== ENCOUNTER 2023-09-11 11:43 | Outpatient (OUT) | payer MEDICARE, SELFPAY ==
--- OUTSIDE RECORDS SUMMARY | 2023-09-11 11:51 | XMS_ITS | CCD ---
Author Organization [facility] Care Team Providers Care Tax Representative Name Role Phone Ball, Dawit E Unavailable Ball, Dawit E Unavailable Karthik Calloway Unavailable [phone] Unavailable Primary Care Provider Unavailabl e Ball, Dawit E Primary Care Provider [phone] Kelechi, Dawit E Unavailable Karthik Calloway Unavailable Kelechi, Dawit E Primary Care Provider [phone] Ball, Dawit E Unavailable Karthik Calloway Unavailable [...] Care Provider Ball DO, Dawit E Unavailable [phone] Karthik Calloway MD Unavailable Unavail able Kelechi, Dawit Unavailable MARGIE LI Referring Unavailab MARGIE Buckner Admitting Unavailab le KELECHI, DAWIT E Primary Care Unavailable KELECHI, DAWIT E Primary Care Unavailable FLIP HILL Attending Unavailable KELECHI DAWIT E Primary Care Unavailable MARGIE LI Attending Unavailab le KELECHI DAWIT E Primary Care Unavailable NENA BYNUM Attending Unavailable KELECHI DAWIT E Primary Care Unavailable NENA BYNUM Admitting Unavailable NENA BYNUM Referring Unavailable DAWIT LORENZ Primary Care Unavailable MARGIE LI Attending Unavailab DAWIT Gonzalez Primary Care Unavailable MARGIE LI Attending Unavailab DAWIT Gonzalez E Primary Care Unavailable MARGIE LI Referring Unavailab MARGIE Buckner Admitting Unavailab MARGIE Buckner Referring Unavailab MARGIE Buckner Admitting Unavailab DAWIT Gonzalez E Primary Care Unavailable MARGIE LI Referring Unavailab MARGIE Buckner Admitting Unavailab DAWIT Gonzalez Primary Care Unavailable Samsa, Calin P Admitting Unavailable Samsa, Calin P Attending Unavailable Samsa, Calin P Attending Unavailable Samsa, Calin P Admitting Unavailable Samsa, DO Calin P Attending Provider Allergies Allergy Classification Reported Allergen(s) Allergy Type Date of Onset Reaction(s) Facility (16 sources) acetaminophen / oxyCODONE; Translations: [OXYCODONE-ACETAM INOPHEN] Propensity to adverse reactions to drug 6 Other (See Comments) [facility] Work Phone: (20 sources) traMADol; Translations: [TRAMADOL] Propensity to adverse reactions to drug 5 Shortness Of Breath [facility] Work Phone: (1 source) traMADol Drug Allergy 6 [facility] Repository (1 source) traMADol Drug Allergy 4 [facility] Repository Medications Current Medications Medication Drug Class(es) Dates Sig (Normalized) Sig (Original) AeroChamber Mini Chamber - (1 source) Start: 07-23-2023 AeroChamber Mini Chamber - Use w/ MDI inhaled every 6 hours as needed for 30 days Jul, Active [id number] actuat albuterol 0.09 mg/actuat metered dose inhaler (1 source) beta2-Adrenergic Agonist Start: 07-23-2023 Albuterol Sulfate HFA 108 (90 Base) MCG/ACT 2 puffs Inhalation every 6 hours as needed for cough. Minimum bid for 30 days Jul, Active allopurinol 300 mg oral tablet (20 sources) Xanthine Oxidase Inhibitor Start: 10-21-2020 take 300 mg by mouth once daily Allopurinol Active 300 MG PO Daily October 21, 2020 12:00am amoxicillin 875 mg / clavulanate 125 mg oral tablet (2 sources) Penicillin-class Antibacterial Start: 08-19-2023 take 1 tablet by mouth every twelve hours Amoxicillin-Pot Clavulanate Active 1 TAB PO Every 12 hours 14 August 19, 2023 1:00am ASCORBATE CALCIUM (VITAMIN C ORAL) (14 sources) [...] by mouth at bedtime . 0 Active atorvastatin 10 mg oral tablet (20 sources) HMG-CoA Reductase Inhibitor Start: 024 Atorvastatin Active 0 .ROUTE .COMPLEX 90 August 05, 2023 8:58pm TAKE 1 TABLET DAILY IN THE EVENING Start: 10-21-2020 End: 08-05-2023 take 10 mg by mouth once daily Atorvastatin Discontinu ed 10 MG PO Daily October 21, 2020 12:00am August 05, 2023 8:58pm benzonatate 100 mg oral capsule (6 sources) Non-narcotic Antitussive Start: 08-13-2023 take 100 mg by mouth three times daily Benzonatate Active 100 MG PO Three times daily August 13, 2023 1:00am Start: 07-07-2023 take 1 capsule by mo uth every eight hours Benzonatate 100 MG 1 capsule as needed Orally Three times a day for 15 days Jun, Active Biotin (15 sources) take 1 tablet by av th [...] mg/ml / guaiFENesin 20 mg/ml oral solution (4 sources) Opioid Agonist Start: 08-13-19 take 1 mL by mouth every six hours Codeine-Guaifenesin Active 10 ML PO Every 6 hours August 13, 2023 1:00am Start: 07-10-2023 take 10 mL by mouth every six hours as needed for cough guaiFENesin-Codeine 100-10 MG/5ML 10 mL as needed Orally every 6 hours as needed for cough for 7 days Jun, Active diclofenac sodium 0.01 mg/mg topical gel (9 sources) Nonsteroidal Anti-inflammatory Drug Start: 05-13-2023 diclofenac sodium (Voltaren) 1 % Gel Apply [...] Active losartan potassium 25 mg oral tablet (9 sources) Angiotensin 2 Receptor Masha Start: 08-13-2023 take 25 mg by mouth once daily Losartan Active 25 MG PO Daily August 13, 2023 1:00am Start: 04-25-2023 take 1 tablet by av th every twenty-four hours Losartan Potassium 25 MG 1 tablet Orally Once a day for 90 days Apr, Active meloxicam 15 mg oral tablet (20 sources) Nonsteroidal Anti-inflammatory Drug Start: 08-13-2023 take 15 mg by mouth once daily Meloxicam Active 15 MG PO Daily August 13, 2023 1:00am Start: 05-13-2023 meloxicam (MOB IC) 15 MG tablet Take 1 (one) tablet [...] tablet by mouth every morning . Active [place] 3 (11 sources) [place] 3 Active [place]-3 Fatty Acids (2 sources) Start: 08-13-2023 take 500 mg by mouth once daily [place]-3 Fatty Acids Active 500 MG PO Daily August 13, 2023 1:00am prednisoLONE acetate 10 mg/ml ophthalmic suspension (6 sources) Corticosteroid Start: 10-01-2022 prednisoLONE acetate (PRED FORTE) 1 % ophthalmic suspension INSTILL 1 DROP INTO AFFECTED EYE INTO AFFECTED EYE 4 TIMES DAILY DIRECTED 0 10/01/2022 Active predniSONE 10 mg oral tablet (5 sources) Start: 08-13-2023 End: 08-13-2023 Prednisone Active 10 MG PO As Directed 18 August 13, 2023 5:25pm 1 tab tid w/ food x 3 days, then bid w/ food x 3 days, than qd w/ food x 3 days Start: 07-23-2023 predniSONE 20 MG 1 tablet Orally bid w/ food x 4 days then qd w/ food x 4 days for 8 days Jul, Active tamsulosin hydrochloride 0.4 mg oral capsule (20 sources) alpha-Adrenergic Masha Start: 10-21-2020 take 0.4 mg by mouth once daily Tamsulosin Active 0.4 MG PO Daily October 21, 2020 12:00am vit A-vit C-vit B-sxok-gdnqnf (EYE VITAMIN AND MINERALS) 7,160-113-100 utta-ux-xpyi Tab (4 sources) take 1 tablet by mouth once daily in the morning vit A-vit C-vit S-idlb-spmiqu (EYE VITAMIN AND MINERALS) 7,160-113-100 zlyn-zk-roda Tab Take 1 tablet by mouth every morning . 0 Active vit A-vit C-vit H-teza-nrzkhj 7,160-113-100 leqh-jj-agvj Tab (9 sources) take 1 tablet by mouth once daily in the morning vit A-vit C-vit G-epvo-lfwuia 7,160-113-100 ahhl-mn-ekty Tab Take 1 tablet by mouth every morning . 0 Active Vitamin C Oral (1 source) take 1 tablet by mouth once daily in the morning ASCORBATE CALCIUM (VITAMIN C ORAL) Take 1 tablet by mouth every morning . Active Vit A 7,160 Unit-Vit C 113 Mg-Vit E 100 Lxty-Dvnv-Bkfpuu Tablet (2 sources) take 1 tablet by mouth once daily in the morning vit A-vit C-vit V-hofa-pzcdry (EYE VITAMIN AND MINERALS) 7,160-113-100 ajvq-hm-novc Tab Take 1 tablet by mouth every morning . Active Completed/Discontinued Medications Medication Drug Class(es) Dates Sig (Normalized) Sig (Original) azithromycin 250 mg oral tablet (20 sources) Macrolide Antimicrobial Start: 11-15-2022 Azithromycin 250 MG as directed Orally daily for 5 days May, Not-Taking/PRN cephalexin 500 mg oral capsule (20 sources) Cephalosporin Antibacterial Start: 01-10-2023 take 1 capsule by mouth every eight hours Cephalexin 500 MG 1 capsule Orally tid for 5 days Dec, Not-Taking/PRN Start: 07-11-2022 take 1 capsule by [facility] twice daily as needed Cephalexin 500 MG 1 capsule Orally twice daily for 7 days Jun, Not-Taking/PRN doxycycline hyclate 100 mg oral capsule (11 sources) Tetracycline-class Drug Start: 06-24-2022 take 1 capsule by mouth every twelve hours Doxycycline Hyclate 100 MG 1 capsule Orally Twice a day for 7 days Jun, Not-Taking/PRN Fluticasone Propion-Salmeter ol (6 sources) Corticosteroid, beta2-Adrenergic Agonist Start: 08-08-2023 End: 08-13-2023 take 1 dose by mouth every twelve hours Fluticasone Propion-Salmeterol Discontinued 0 .ROUTE .COMPLEX 60 August 08, 2023 10:43am August 13, 2023 12:21pm INHALE 1 DOSE BY MOUTH EVERY 12 HOURS Start: 08-07-2023 End: 08-08-2023 take 1 puff(s) by inhalation every twelve hours Fluticasone Propion-Salmeterol Discontinued 2 PUFF INHALATION Every 12 hours 06 15August 07, 2023 10:58am August 08, 2023 10:43am Start: 08-06-2023 End: 08-07-2023 take 1 puff(s) by inhalation every twelve hours Fluticasone Propion-Salmeterol Discontinued 2 PUFF INHALATION Every 12 hours 06 15August 06, 2023 1:00am August 07, 2023 10:58am mupirocin 0.02 mg/mg topical ointment (11 sources) [...] by bkfst for 0 *Pick strength-form from [facility] for eRX* Dec, Not-Taking/PRN Start: 10-21-2020 take 20 mg by mouth once daily Omeprazole Active 20 MG PO Daily October 21, 2020 12:00am raNITIdine 300 mg oral tablet (5 sources) Histamine-2 Receptor Antagonist Start: 10-21-2020 End: 08-13-2023 take 300 mg by mouth once daily Ranitidine Hcl Discontinued 300 MG PO Daily October 21, 2020 12:00am August 13, 2023 12:21pm Ranitidine HCl A ctive sildenafil 100 mg oral tablet (11 sources) Phosphodiesterase 5 Inhibitor Start: 01-03-2022 Sildenafil Citrate 100MG Sildenafil Citrate 100MG, 1 (one) Tablet 1 PO PRN ED # 6, 01/03/2022, Ref. x5. Active Oral 1 PO PRN ED for 30 *Pick strength-form from [facility] for eRX* Dec, Not-Taking/PRN Problems Active Problems Problem Classification Problem Date Documented Da te Episodic/Chronic Acquired foot deformities (6 sources) Toe joint rigid; Translations: [Hallux rigidus, left foot] Onset: Chronic Acute bronchitis (1 source) Acute bronchitis [...] reflux disease without esophagitis] Chronic Essential hypertension (14 sources) Essential hypertension; Translations: [Essential (primary) hypertension] Chronic Gastrointestinal hemorrhage (20 sources) Blood-tinged feces; Translations: [Melena] 05-29-2023 Episodic Heart valve disorders (2 sources) Cardiac murmur, unspecified; Translations: [Undiagnosed cardiac murmurs] 08-13-2023 Episodic Hemorrhoids (11 sources) Hemorrhoids; Translations: [Unspecified hemorrhoids] Episodic Hyperplasia of prostate (11 sources) Lower urinary tract symptoms due to benign prostatic hypertrophy; Translations: [Benign prostatic hyperplasia with lower urinary tract symptoms] Chronic Malaise and fatigue (1 source) Other fatigue Episodic Nausea and vomiting (4 sources) Nausea and vomiting; Translations: [Nausea with vomiting, unspecified] 08-13-2023 Episodic Open wounds of head; neck; and trunk (1 source) Laceration without foreign body of scalp, initial encounter Episodic Osteoarthritis (20 sources) Unilateral primary osteoarthritis, left knee; Translations: [Osteoarthritis of knee] Onset: 5 08-23-2014 Chronic Osteoarthritis (6 sources) Osteoarthritis of left knee joint; Translations: [Osteoarthritis of left knee] Onset: 5 08-23-2014 Other aftercare (1 source) Other senior living (current) drug therapy Episodic Other circulatory disease (1 source) Elevated blood-pressure reading, without diagnosis of hypertension Episodic Other connective tissue disease (20 sources) History of total knee arthroplasty; Translations: [Presence of artificial knee joint, bilateral] Onset: 7 06-25-2016 Chronic Other connective tissue disease (1 source) Metatarsalgia of left foot; Translations: [Metatarsalgia, left foot] 10-08-2022 Episodic Other gastrointestinal disorders (12 sources) Dysphagia; Translations: [Dysphagia, unspecified] 05-29-2023 Episodic Other gastrointestinal disorders (1 source) Dysphagia, unspecified; Translations: [Dysphagia] Episodic Other lower respiratory disease (14 sources) Cough; Translations: [Cough, unspecified] Onset: 5 08-13-2023 Episodic Other lower respiratory disease (2 sources) Other forms of dyspnea; Translations: [Other respiratory abnormalities] 08-13-2023 Episodic Other male genital disorders (10 sources) [...] SCREEN MALIG NEOPLASM PROSTATE] Onset: 2 Episodic Belia-; endo-; and myocarditis; cardiomyopathy (except that caused by tuberculosis or sexually transmitted disease) (2 sources) Pericardial effusion; Translations: [Pericardial effusion] 08-21-2023 Episodic Past or Other Problems Problem Classification [...] [Pain in left foot] Onset: 08-28-2022 Episodic Unclassified (3 sources) Subacute cough R05.2 Unclassified (1 source) Cough, unspecified; Translations: [Cough, unspecified] Onset: 09-06-2014 Results Test Name Value Interpretation Reference Range Facility Body fluid differential cell countOrdered By: Calin Gotti on 09-04-2023 Differential panel (Body fld) 50 % [facility] Comment on above: The reference interv al and other method performance specifications have not been established for this body fluid. The test result must be integrated into the clinical context for interpretation. Cell Count/Diff, Fluidon Appearance, Fluid Hazy Normal [facility] Comment on above: Order Comment: Body Fluid Source: Pleural Fluid Body Fluid Site: PLEURAL FLUID Result Comment: The reference interval and other method performance specifications have not been established for this body fluid. The test result must be integrated into the clinical context for interpretation. Performed By: #### F LCCDIFF #### [place] [id number] [place] Color, Fluid Red-Brown [facility] Comment on above: Order Comment: Body Fluid Source: Pleural Fluid Body Fluid Site: PLEURAL FLUID Result Comment: The reference interval and other method performance specifications have not been established for this body fluid. The test result must be integrated into the clinical context for interpretation. Performed By: #### F LCCDIFF #### [place] [address] [place] Color, Fluid Supernatant Red-Brown [facility] Comment on above: Order Comment: Body Fluid Source: Pleural Fluid Body Fluid Site: PLEURAL FLUID Result Comment: The reference interval and other method performance specifications have not been established for this body fluid. The test result must be integrated into the clinical context for interpretation. Performed By: #### F LCCDIFF #### [address] Eosinophils, Fluid 0 /100{WBC} Normal 0-3 [facility] Comment on above: Order Comment: Body Fluid Source: Pleural Fluid Body Fluid Site: PLEURAL FLUID Result Comment: PERF ORMED BY: [place] [address] PATHOLOGIST MATERIAL HANDLING TECHNICIAN KATHY HENDRICKSON M.D. Performed By: #### F LCCDIFF #### [address] Lymphocytes, Fluid 38 % Normal [facility] Comment on above: Order Comment: Body Fluid Source: Pleural Fluid Body Fluid Site: PLEURAL FLUID Result Comment: The reference interval and other method performance specifications have not been established for this body fluid. The test result must be integrated into the clinical context for interpretation. Performed By: #### F LCCDIFF #### [facility] [address] [place] [address] [place] Monocytes/Macrophages, Fluid 50 % [facility] Comment on above: Order Comment: Body Fluid Source: Pleural Fluid Body Fluid Site: PLEURAL FLUID Result Comment: The reference interval and other method performance specifications have not been established for this body fluid. The test result must be integrated into the clinical context for interpretation. Performed By: #### F LCCDIFF #### [address] [address] [place] Neutrophil, Fluid 12 % Normal [facility] Comment on above: Order Comment: Body Fluid Source: Pleural Fluid Body Fluid Site: PLEURAL FLUID Result Comment: The reference interval and other method performance specifications have not been established for this body fluid. The test result must be integrated into the clinical context for interpretation. Performed By: #### F LCCDIFF #### [facility] [address] RBC, Fluid [id number] /uL [facility] Comment on above: Order Comment: Body Fluid Source: Pleural Fluid Body Fluid Site: PLEURAL FLUID Result Comment: The reference interval and other method performance specifications have not been established for this body fluid. The test result must be integrated into the clinical context for interpretation. Performed By: #### F LCCDIFF #### [facility] [address] TNC, Body Fluid 999 /uL [facility] Comment on above: Order Comment: Body Fluid Source: Pleural Fluid Body Fluid Site: PLEURAL FLUID Result Comment: The reference interval and other method performance specifications have not been established for this body fluid. The test result must be integrated into the clinical context for interpretation. Performed By: #### F LCCDIFF #### [facility] [address] [place] [address] Color of Spun Body fluidOrde red By: Calin Gotti on 09-04-2023 Color (Spun body fld) Red-brown [facility] Comment on above: The reference interv al and other method performance specifications have not been established for this body fluid. The test result must be integrated into the clinical context for interpretation. Determination of appearance of body fluidOrdered By: Calin Gotti on 09-04-2023 Appearance (Body fld) Hazy [facility] Comment on above: The reference interv al and other method performance specifications have not been established for this body fluid. The test result must be integrated into the clinical context for interpretation. Evaluation of color of body fluidOrdered By: Calin Gotti on 09-04-2023 Color (Body fld) Red-brown [facility] Comment on above: The reference interv al and other method performance specifications have not been established for this body fluid. The test result must be integrated into the clinical context for interpretation. Laboratory - Chemistry and C hemistry - challengeon 09-04-2023 Cholesterol [Mass/Vol] 59 mg/dL <=200 Fi [facility] Laboratory - Microbiology an d Antimicrobial susceptibilityOrdered By: Dawit Lorenz on 09-04-2023 Microscopic observation Gram stain Nom (Unsp spec) [facility] Manual body fluid eosinophil s/100 leukocytesOrdered By: Calin Gotti on 09-04-2023 Eosinophils/100 WBC Manual cnt (Body fld) 0 /100{WBC} 0-3 [facility] Manual body fluid erythrocyt es count (number/volume)Ordered By: Calin Gotti on 09-04-2023 RBC Manual cnt (Body fld) [#/Vol] [id number] /uL [facility] Comment on above: The reference interv al and other method performance specifications have not been established for this body fluid. The test result must be integrated into the clinical context for interpretation. Manual body fluid lymphocyte s/100 leukocytesOrdered By: Calin Gotti on 09-04-2023 Lymphocytes/100 WBC Manual cnt (Body fld) 38 % [facility] Comment on above: The reference interv al and other method performance specifications have not been established for this body fluid. The test result must be integrated into the clinical context for interpretation. Neutrophils/100 WBC Manual c nt (Body fld)Ordered By: Calin Gotti on 09-04-2023 Neutrophils/100 WBC (Body fld) 12 % [facility] Comment on above: The reference interv al and other method performance specifications have not been established for this body fluid. The test result must be integrated into the clinical context for interpretation. No Panel InformationOrdered By: Dawit Lorenz on 09-04-2023 Acid Fast Smear [facility] AFB Specimen Processing F [facility] No Panel Informationon 09-03 Body Fluid Amylase 20 U/L . [facility] Comment on above: : BODY FLUID TYPE : AMYLASE : : : : : Lymph : 50 - 83 : : : : : Peritoneal : : : Fluid : 88 - 109 : : : : : Saliva : : : (Mixed Glands) : [id number] - [id number] : : : : Adeel Das V. Reference Intervals for Adults and Children 2007. Ninth Edition (V9.1) [employer] [facility]; [place]: December 2008.Performed at: [address] [id number] Director: Norm Alcaraz PhD, Phone: [phone] Body Fluid Glucose 119 mg/dL . [facility] Comment on above: : BODY FLUID TYPE : GLUCOSE : : : : : Amniotic Fluid : 45 - 76 : : : : : Bile, Clear : < 5 : : : : : Bile, Yellow : < 8 : : : : : Lymph : 48 - 200 : : : : : Nasal Secretion : < 10 : : : : : Pleural Fluid : 65 - 99 : : : : : Saliva : < 2 : : (Mixed Glands) : : : : : : Sweat : < 7 : : : : : Synovial Fluid : 65 - 99 : : : : : Tears : 76 - 288 : : : : Adeel Das V. Reference Intervals for Adults and Children 2007. Ninth edition (V9.1) [facility]; [place]: December 2008. Body Fluid Total Protein 3.7 g/dL . [facility] Comment on above: : BODY FLUID TYPE : TOTAL PROTEIN : : : : : Amniotic Fluid : <0.4 : : : : : : Nonmalignant: <3.0 : : Ascitic Fluid : Malignant: >3.0 : : : : : Bile, Clear : <0.9 : : : : : Bile, Yellow : 0.2 - 0.6 : : : : : Lymph : 2.2 - 6.0 : : : : : Human Milk : 1.9 - 2.0 : : : : : Nasal Secretion : 0.1 - 3.5 : : : : : Pancreatic : 0.0 - 0.1 : : Juice : (post stimulation) : : : : : : Transudate: <0.3 : : Pleural Fluid : Exudate: >0.3 : : : : : Saliva : 0.1 - 0.2 : : (Mixed Glands) : : : : : : Synovial Fluid : <2.5 : : : : : Tears : 0.8 - 0.9 : : : : Adeel Das V. Reference Intervals for Adults and Children 2008. Ninth Edition (V9.1) [employer], [facility]; [place]: December 2008. Body Fluid Triglycerides 21 mg/dL Not Estab. [facility] Comment on above: The reference interv al(s) and other method performance specificationshave not been established for this body fluid. The test result must beintegrated into the clinical context for interpretation.Performed at: [facility] [id number] Director: Norm Alcaraz PhD, Phone: [phone] No Panel InformationOrdered By: Calin Gotti on 09-04-2023 Body Fluid Total Nucleated Cells 999 /uL [facility] Comment on above: The reference interv al and other method performance specifications have not been established for this body fluid. The test result must be integrated into the clinical context for interpretation. Adenosine monophosphate.cycl ic [Moles/Vol]on 08-28-2023 Cyclic Citrullinated Peptid IgG/IgA 1 units 0-19 [facility] Comment on above: Negative <20 Weak po sitive 20 - 39 Moderate positive 40 - 59 Strong positive >59Performed at: [facility], [place] [id number] Director: Norm Alcaraz PhD, Phone: [phone] Negative <20 Weak po sitive 20 - 39 Moderate positive 40 - 59 Strong positive >59Performed at: [address] [id number] Director: Norm Alcaraz PhD, Phone: [phone] Atypical perinuclear antineu trophil cytoplasmic antibodies measurementon 08-28-2023 Neutrophil cytoplasmic Ab.perinuclear.atypical IF (S) [Titer] <1:20 titer Neg:<1:20 [facility] Comment on above: The atypical pANCA p attern has been observed in asignificant percentage of patients with ulcerative colitis,primary sclerosing cholangitis and autoimmune hepatitis.Performed at: [facility] [id number] Director: Yan Escamilla MD, Phone: [phone] at: [address] [id number] Director: Norm Alcaraz PhD, Phone: [phone] Histoplasma capsulatum antib olga detection by complement fixationon 08-28-2023 H. capsulatum Ab CF Ql (S) Negative Neg:<1:2 [facility] Comment on above: Performed at: [address] [id number] Director: Yan Escamilla MD, Phone: [phone] Myeloperoxidase Ab [Units/vo lume] in Serum by Immunoassayon 08-28-2023 Myeloperoxidase Ab IA Qn (S) <0.2 units 0.0-0.9 [facility] No Panel Informationon 08-27 Miscellaneous Test COMMENT . [facility] Comment on above: Test Ordered: [id number] [place] A IgG/IgM AntibodyCoxsackie A7 IgG 1:100 [H ] titer BN Reference Range: Neg:<1:100[place] A9 IgG 1:100 [H ] titer BN Reference Range: Neg:<1:100[place] A16 IgG 1:100 [H ] titer BN Reference Range: Neg:<1:100[place] A24 IgG 1:100 [H ] titer BN Reference Range: Neg:<1:100[place] A7 IgM Negative titer BN Reference Range: Neg:<1:10[place] A9 IgM Negative titer BN Reference Range: Neg:<1:10[place] A16 IgM Negative titer BN Reference Range: Neg:<1:10[place] A24 IgM Negative titer BN Reference Range: Neg:<1:10Performed at: [facility] [address] [id number] Director: Yan Escamilla MD, Phone: [phone] at: [facility] [id number] Director: Norm Alcaraz PhD, Phone: [phone] Perinuclear ANCA (p-ANCA) Antibody <1:20 titer Neg:<1:20 [facility] Comment on above: The presence of posi tive fluorescence exhibiting P-ANCA orC-ANCA patterns alone is not specific for the diagnosis ofWegener's Granulomatosis (WG) or microscopic polyangiitis.Decisions about treatment should not be based solely onANCA IFA results. The [employer] ANCA Group Consensusrecommends follow up testing of positive sera with both VT-3 and MPO-ANCA enzyme immunoassays. As many as 5% serumsamples are positive only by EIA. Ref. AM J Clin [id number];111:507-513. Proteinase 3 Ab [Units/volum e] in Serum by Immunoassayon 08-28-2023 Proteinase 3 Ab IA Qn (S) <0.2 units 0.0-0.9 [facility] SCL-70 extractable nuclear A b IA Qn (S)on 08-28-2023 Scl-70 (Scleroderma) Antibody <0.2 AI 0.0-0.9 [facility] Comment on above: Performed at: [employer] [address] [id number] Director: Norm Alcaraz PhD, Phone: [phone] Performed at: [employer] [address] [id number] Director: Norm Alcaraz PhD, Phone: [phone] Serum angiotensin converting enzyme (NANDO) measurementon 08-28-2023 Angiotensin converting enzyme [Catalytic activity/Vol] 34 U/L 14-82 [facility] Comment on above: Performed at: [employer] [place], [place] [id number] Director: Norm Alcaraz PhD, Phone: [phone] Serum classic neutrophil cyt oplasmic antibody titer by immunofluorescenceon 08-28-2023 Neutrophil cytoplasmic Ab.classic IF (S) [Titer] <1:20 titer Neg:<1:20 [facility] Serum or plasma rheumatoid f actor measurement (units/volume)on 08-28-2023 Rheumatoid factor Qn [IU]/mL <14.0 [facility] Comment on above: Performed at: [employer] [place], [place] [id number] Director: Norm Alcaraz PhD, Phone: [phone] Laboratory - Chemistry and C hemistry - challengeon 08-21-2023 Cobalamin (Vitamin B12) [Mass/Vol] 3286.0 pg/mL 193.0-986.0 [facility] TSH Qn 1.287 m[IU]/L 0.358-3.740 [facility] Laboratory - Hematology and Cell countson 08-21-2023 ESR (Bld) [Velocity] 126 mm/h <=20 [facility] No Panel Informationon 08-20 C-Reactive Protein, Quantitative 4.28 mg/dL <=0.50 [facility] Folate 21.60 ng/mL 8.60-58.90 [facility] Serum or plasma free cefurox christine measurement (mass/volume)on 08-21-2023 Cefuroxime free [Mass/Vol] Negative Negative [facility] Comment on above: Performed at: [employer] [place], [place] [id number] Director: Norm Alcaraz PhD, Phone: [phone] Basophils Auto (Bld) [#/Vol] on 08-15-2023 Basophils (Bld) [#/Vol] 0.0 10 3/uL 0.0-0.1 [facility] Basophils/100 WBC Auto (Bld) on 08-15-2023 Basophils/100 WBC (Bld) 0.2 % 0.2-2.[address] [facility] Eosinophils/100 WBC Auto (Bl d)on 08-15-2023 Eosinophils/100 WBC (Bld) 0.0 % 0.9-7.0 [facility] Erythrocyte distribution wid th Auto (RBC) [Ratio]on 08-15-2023 Erythrocyte distribution width (RBC) [Ratio] 12.5 % 11.0-15.0 [facility] Estimated glomerular filtrat ion rate (GFR) non- Americanon 08-15-2023 GFR/1.73 sq M.predicted among non-blacks MDRD (S/P/Bld) [Vol rate/Area] mL/min/{1.73_m2} >=60 [facility] Globulin Calc (S) [Mass/Vol] on 08-15-2023 Globulin (S) [Mass/Vol] 4.7 g/dL F [facility] Hematocrit Auto (Bld) [Volum e fraction]on 08-15-2023 Hematocrit (Bld) [Volume fraction] 34.7 % 42.0-54.0 [facility] Hemoglobin [Mass/volume] in Bloodon 08-15-2023 Hemoglobin (Bld) [Mass/Vol] 11.2 g/dL 14.0-18.0 [facility] Laboratory - Chemistry and C hemistry - challengeon 08-15-2023 Albumin [Mass/Vol] 3.2 g/dL 3.4-5.0 [facility] ALP [Catalytic activity/Vol] 66 U/L 46-116 [facility] ALT [Catalytic activity/Vol] 33 U/L 16-63 [facility] AST [Catalytic activity/Vol] 24 U/L 15-37 [facility] Bilirubin [Mass/Vol] 0.6 mg/dL 0.2-1.0 [facility] Calcium [Mass/Vol] 8.9 mg/dL 8.5-10.1 [facility] Chloride [Moles/Vol] 101 mmol/L 98-107 [facility] CO2 [Moles/Vol] 27.4 mmol/L 21.0-32.0 [facility] Creatinine [Mass/Vol] 1.06 mg/dL 0.70-1.30 [facility] GFR/1.73 sq M.predicted MDRD (S/P/Bld) [Vol rate/Area] mL/min/{1.73_m2} >=60 [facility] Glucose [Mass/Vol] 115 mg/dL 74-106 [facility] Natriuretic peptide B (Bld) [Mass/Vol] 397.0 pg/mL <=900.0 [facility] Potassium [Moles/Vol] 3.8 mmol/L 3.5-5.1 [facility] Protein [Mass/Vol] 7.9 g/dL 6.4-8.2 [facility] Sodium [Moles/Vol] 138 mmol/L 136-145 [facility] Urea nitrogen [Mass/Vol] 15.0 mg/dL 7.0-18.0 [facility] Urea nitrogen/Creatinine [Mass ratio] 14.2 mg/mg [facility] Laboratory - Hematology and Cell countson 08-15-2023 ESR (Bld) [Velocity] mm/h <=20 [facility] Immature granulocytes/100 WBC (Bld) 0.4 % 0.0-0.5 [facility] Laboratory - Microbiology an d Antimicrobial susceptibilityon 08-15-2023 SARS-CoV-2 (COVID-19) RNA BRYN+probe Ql (Unsp spec) Negative NEGATIVE [facility] Comment on above: This test has not be en FDA cleared or approved, but has beenauthorized by the FDA under an Emergency Use Authorization(EUA) for use by authorized laboratories certified underIA that meet the requirements to perform moderate or highcomplexity testing. This test has been authorized only forthe detection of proteins from SARS-CoV-2, not for any otherviruses or pathogens. The emergency use of this test isauthorized for the duration of the declaration thatcircumstances exist justifying the authorization ofemergency use of in vitro diagnostic tests for detectionand/or diagnosis of Covid-19 under section 564(b)(1) of theAct, 21 U.S.C. 360bbb-3(b)(1), unless the declaration isterminated or authorization is revoked sooner. Leukocytes [#/volume] correc prerna for nucleated erythrocytes in Blood by Automated counon 08-15-2023 WBC corrected for nucl RBC Auto (Bld) [#/Vol] 9.9 10 3/uL 4.0-11.0 [facility] Lymphocytes Auto (Bld) [#/Vo l]on 08-15-2023 Lymphocytes (Bld) [#/Vol] 0.8 10 3/uL 1.2-3.8 [facility] Lymphocytes/100 WBC Auto (Bl d)on 08-15-2023 Lymphocytes/100 WBC (Bld) 8.0 % 20.5-60.0 [facility] MCH Auto (RBC) [Entitic mass ]on 08-15-2023 MCH (RBC) [Entitic mass] 32.3 pg 25.9-34.0 [facility] MCHC Auto (RBC) [Mass/Vol]on 08-15-2023 MCHC (RBC) [Mass/Vol] 32.3 g/dL 29.9-35.2 [facility] MCV Auto (RBC) [Entitic vol] on 08-15-2023 MCV (RBC) [Entitic vol] 100.0 fL 80.0-94.[address] [facility] Monocytes Auto (Bld) [#/Vol] on 08-15-2023 Monocytes (Bld) [#/Vol] 1.0 10 3/uL 0.3-0.8 [facility] Monocytes/100 WBC Auto (Bld) on 08-15-2023 Monocytes/100 WBC (Bld) 9.9 % 1.7-12.[address] [facility] Neutrophils Auto (Bld) [#/Vo l]on 08-15-2023 Neutrophils (Bld) [#/Vol] 8.1 10 3/uL 1.4-6.5 [facility] Neutrophils/100 WBC Auto (Bl d)on 08-15-2023 Neutrophils/100 WBC (Bld) 81.5 % 43.0-75.0 [facility] No Panel Informationon C-Reactive Protein, Quantitative 6.36 mg/dL <=0.50 [facility] Eosinophils # (Auto) 0.0 10 3/uL 0.0-0.7 [facility] Immature Granulocyte # (Auto) 0.04 10 3/uL 0.00-0.03 [facility] Troponin I High Sensitivity 11.9 pg/mL 4.0-76.1 [facility] Comment on above: CUT-OFF POINTS HAVE BEEN ESTABLISHED BASED ON THE FOURTHUNIVERSAL DEFINITION OF MYOCARDIAL INFARCTION. THE UPPERREFERENCE LIMIT (URL) OF TROPONIN, DEFINED THE 99THPERCENTILE OF cTnI DISTRIBUTION IN A REFERENCE POPULATION,HAS BEEN CONFIRMED THE DECISION THRESHOLD FOR MIDIAGNOSIS.99TH PERCENTILE = 76.2 PG/MLNOTE: HIGH-SENSITIVITY TROPONIN ASSAY IS NOT INTENDED TO BEUSED IN ISOLATION BUT SHOULD BE INTERPRETED IN CONJUNCTIONWITH OTHER DIAGNOSTIC AND CLINICAL INFORMATION. Bedside Influenza Type A Antigen Negative [facility] Comment on above: Negative for Flu A p rotein antigen. Infection due to Flu Acannot be ruled out. Flu A antigen in the sample may bebelow the detection limit of the test. Bedside Influenza Type B Antigen Negative [facility] Comment on above: Negative for Flu B p rotein antigen. Infection due to Flu Bcannot be ruled out. Flu B antigen in the sample may bebelow the detection limit of the test. Platelet mean volume Auto (B ld) [Entitic vol]on 08-15-2023 Platelet mean volume (Bld) [Entitic vol] 9.5 fL 9.5-13.5 [facility] Platelets Auto (Bld) [#/Vol] on 08-15-2023 Platelets (Bld) [#/Vol] 288 10 3/uL 150-450 [facility] RBC Auto (Bld) [#/Vol]on RBC (Bld) [#/Vol] 3.47 10 6/uL 4.70-6.10 [facility] Serum or plasma albumin/glob ulin mass ratioon 08-15-2023 Albumin/Globulin [Mass ratio] 0.7 {ratio} [facility] Serum or plasma anion gap de terminationon 08-15-2023 Anion gap [Moles/Vol] 13.4 mmol/L [facility] 4+ VIEWS (SPECI FY VIEWS IN COMMENTS)on 01-16-2023 XR KNEE LEFT 4+ VIEWS (SPECIFY VIEWS IN COMMENTS) X-rays of the left knee from [facility] taken today are reviewed. My personal interpretation [...] SatJan 16, 2023 10:52:01 AM EDT [facility] Comment on above: Order Comment: Injur y/Trauma or Illness?:Illness/Other How long have you had these symptoms (acute/chronic)?:Unknown Reason for exam?:U History of cancer?:n/a Surgeries, chemotherapy, or radiation?:n/a Type of Exam?:Unknown Additional signs and symptoms?:U XR ANKLE LEFT 3+ VIEWS (CANDIS JENSEN)on 08-28-2022 XR ANKLE LEFT 3+ VIEWS (STANDARD) [...] SatAug 28, 2022 1:49:21 PM EDT [facility] Comment on above: Order Comment: Injur [...] SatAug 28, 2022 1:50:20 PM EDT [facility] Comment on above: Order Comment: Injur [...] SatAug 28, 2022 1:49:28 PM EDT [facility] Comment on above: Order Comment: Injur y/Trauma or Illness?:Illness/Other How long have you had these symptoms (acute/chronic)?:Unknown Reason for exam?:n/a History of cancer?:n/a Surgeries, chemotherapy, or radiation?:n/a Type of Exam?:Unknown Additional signs and symptoms?:n/a XR FOOT RIGHT 2 VIEWSon - XR FOOT RIGHT 2 VIEWS Weightbearing radiographs [...] SatAug 28, 2022 1:50:37 PM EDT Normal [facility] Comment on above: Order Comment: Injur y/Trauma or Illness?:Illness/Other How long have you had these symptoms (acute/chronic)?:Unknown Reason for exam?:n/a History of cancer?:n/a Surgeries, chemotherapy, or radiation?:n/a Type of Exam?:Unknown Additional signs and symptoms?:n/a CBC AUTO DIFFon 03-19-2022 BASO # 0.1 103/ul Normal 0.0-0.1 [facility] Comment on above: Performed By: #### D ATCBC #### [facility] [address] [place] [address] Dr. Joni Sanders Basophils/100 WBC (Bld) 1.0 % Normal 0.2-2.0 [facility] Comment on above: Performed By: #### D ATCBC #### [facility] [address] [place] [address] Dr. Joni Sanders EO # 0.1 103/ul Normal 0.0-0.7 [facility] Comment on above: Performed By: #### D ATCBC #### [facility] [address] [place] [address] Dr. Joni Sanders Eosinophils/100 WBC (Bld) 2.0 % Normal 0.9-7.0 [facility] Comment on above: Performed By: #### D ATCBC #### [facility] [address] [place] [address] Dr. Joni Sanders Erythrocyte distribution width (RBC) [Ratio] 12.4 % Normal 11.0-15.0 [facility] Comment on above: Performed By: #### D ATCBC #### [facility] [address] [place] [address] Dr. Joni Sanders Hematocrit (Bld) [Volume fraction] 43.7 % Normal 42.0-54.0 [facility] Comment on above: Performed By: #### D ATCBC #### [facility] [address] [place] [address] Dr. Joni Sanders Hemoglobin (Bld) [Mass/Vol] 14.6 g/dL Normal 14.0-18.0 [facility] Comment on above: Performed By: #### D ATCBC #### [facility] [address] [place] [address] Dr. Joni Sanders IG # 0.02 10e3/ul Normal 0.00-0.03 [facility] Comment on above: Performed By: #### D ATCBC #### [facility] [address] [place] [address] Dr. Joni Sanders IG % 0.3 % Normal 0.0-0.5 [facility] Comment on above: Performed By: #### D ATCBC #### [facility] [address] [place] [address] Dr. Joni Sanders LYMPH # 2.0 103/ul Normal 1.2-3.8 [facility] Comment on above: Performed By: #### D ATCBC #### [facility] [address] [place] [address] Dr. Joni Sanders Lymphocytes/100 WBC (Bld) 33.3 % Normal 20.5-60.0 [facility] Comment on above: Performed By: #### D ATCBC #### [facility] [address] [place] [address] Dr. Joni Sanders MCH (RBC) [Entitic mass] 32.6 pg Normal 25.9-34.0 [facility] Comment on above: Performed By: #### D ATCBC #### [facility] [address] [address] [address] Joni Sanders MCHC (RBC) [Mass/Vol] 33.4 g/dL Normal 29.9-35.2 [facility] Comment on above: Performed By: #### D ATCBC #### [facility] [address] [place] [address] Dr. Joni Sanders MCV (RBC) [Entitic vol] 97.5 fL Critically high 80.0-94 .0 [facility] Comment on above: Performed By: #### D ATCBC #### [facility] [address] [place] [address] Dr. Joni Sanders MONO # 0.6 103/ul Normal 0.3-0.8 [facility] Comment on above: Performed By: #### D ATCBC #### [facility] [address] [place] [address] Dr. Joni Sanders Monocytes/100 WBC (Bld) 9.8 % Normal 1.7-12.0 [facility] Comment on above: Performed By: #### D ATCBC #### [facility] [address] [place] [address] Dr. Joni Sanders NEUT # 3.2 103/ul Normal 1.4-6.5 [facility] Comment on above: Performed By: #### D ATCBC #### [facility] [address] [place] [address] Dr. Joni Sanders Neutrophils/100 WBC (Bld) 53.6 % Normal 43.0-75.0 [facility] Comment on above: Performed By: #### D ATCBC #### [facility] [address] [place] [address] Dr. Joni Sanders Platelet mean volume (Bld) [Entitic vol] 9.9 fL Normal 9.5-13.5 [facility] Comment on above: Performed By: #### D ATCBC #### [facility] [address] [place] [address] Dr. Joni Sanders PLT 239 103/ul Normal 150-450 [facility] Comment on above: Performed By: #### D ATCBC #### [facility] [address] [address] [address] Joni Sanders RBC 4.48 106/ul Critically low 4.70-6.10 [facility] Comment on above: Performed By: #### D ATCBC #### [facility] [address] [address] [address] Joni Sanders WBC 5.9 103/ul Normal 4.0-11.0 [facility] Comment on above: Performed By: #### D ATCBC #### [facility] [address] [address] [address] Joni Sanders SILVIA- BMP WITH LIPIDon 2021 Anion gap [Moles/Vol] 12.7 mmol/L Normal [facility] Comment on above: Performed By: #### D ATBMP #### [facility] [address] [address] [address] Joni Sanders Calcium [Mass/Vol] 9.0 mg/dL Normal 8.5-10.1 [facility] Comment on above: Performed By: #### D ATBMP #### [facility] [address] [address] [address] Joni Sanders Chloride [Moles/Vol] 104 mmol/L Normal 98-107 [facility] Comment on above: Performed By: #### D ATBMP #### [facility] [address] [address] [address] Joni Sanders Cholesterol [Mass/Vol] 188 mg/dL Normal <=200 [facility] Comment on above: Performed By: #### D ATBMP #### [facility] [address] [place] [address] Dr. Joni Sanders Cholesterol in HDL [Mass/Vol] 45 mg/dL Normal 40-60 [facility] Comment on above: Performed By: #### D ATBMP #### [facility] [address] [address] [address] Joni Sanders Cholesterol in LDL [Mass/Vol] 102.2 mg/dL Normal [facility] Comment on above: Performed By: #### D ATBMP #### [facility] [address] [address] [address] Joni Sanders CO2 [Moles/Vol] 27.7 mmol/L Normal 21.0-32.0 [facility] Comment on above: Performed By: #### D ATBMP #### [facility] [address] [address] [address] Joni Sanders Creatinine [Mass/Vol] 1.00 mg/dL Normal 0.70-1.30 [facility] Comment on above: Performed By: #### D ATBMP #### [facility] [address] [address] [address] Joni Sanders EGFR-AF TAJIK >60 Normal >=60 [facility] Comment on above: Performed By: #### D ATBMP #### [facility] [address] [address] [address] Joni Sanders EGFR-NON AF TAJIK >60 Normal >=60 [facility] Comment on above: Performed By: #### D ATBMP #### [facility] [address] [address] [address] Joni Sanders Glucose [Mass/Vol] 107 mg/dL Critically high 74-[address] [facility] Comment on above: Performed By: #### D ATBMP #### [facility] [address] [address] [address] Joni Sanders HDL NORMAL > or = 60 mg/dl - LO W CARDIOVASCULAR RISK <40 mg/dl - HIGH CARDIOVASCULAR RISK Normal [facility] Comment on above: Performed By: #### D ATBMP #### [facility] [address] [address] [address] Joni Sanders LDL CALC NORMAL SEE BELOW Normal [facility] Comment on above: Result Comment: <100 mg/dl OPTIMAL 100 - 129 mg/dl NEAR OR ABOVE OPTIMAL 130 - 159 mg/dl BORDERLINE HIGH 160 - 189 mg/dl HIGH >190 mg/dl VERY HIGH Performed By: #### D ATBMP #### [facility] [address] [address] [address] Joni Sanders Potassium [Moles/Vol] 4.4 mmol/L Normal 3.5-5.1 [facility] Comment on above: Performed By: #### D ATBMP #### [facility] [address] [address] [address] Joni Sanders Sodium [Moles/Vol] 140 mmol/L Normal 136-145 [facility] Comment on above: Performed By: #### D ATBMP #### [facility] [address] [address] [address] Joni Sanders Triglyceride [Mass/Vol] 204 mg/dL Critically high <=150 [facility] Comment on above: Performed By: #### D ATBMP #### [facility] [address] [address] [address] Joni Sanders Urea nitrogen [Mass/Vol] 22.0 mg/dL Critically high 7.0-18 .0 [facility] Comment on above: Performed By: #### D ATBMP #### [facility] [address] [address] [address] Joni Sanders Urea nitrogen/Creatinine [Mass ratio] 22.0 mg/mg Normal [facility] Comment on above: Performed By: #### D ATBMP #### [facility] [address] [address] [address] Joni Sanders VLDL CALC 40.8 mg/dL Normal [facility] Comment on above: Performed By: #### D ATBMP #### [facility] [address] [address] [address] Joni Arceo 12-16-2020 CNPN Telephone ([facility]) BRYAN HARRIS ([id number]) 1950 M Date Time Provider Department 12/16/[address] [facility] During your visit today, we recorded the following information about you: Yesenia Arellano Pss 12/16/2020 9:43 AM Signed Patient has questions about past procedure Ph. [phone] Jessica Devlin RN 12/16/2020 12:09 PM Signed [...] Fully Assessed Reason for Visit: Patient Question [1792] Prescriptions as of 12/16/2020 - allopurinol (ZYLOPRIM) [...] Encounter Status:Closed by JESSICA DEVLIN on 12/16/20 [facility] CNOVseven 12-15-2020 INÉSOV Office Visit (HOMER ) BRYAN HARRIS ([id number]) 1950 M Date Time Provider Department 12/15/20 [...] for internal providers or letter via the [employer] for external providers. 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, Carter Nunez Anoscopy: The patient [...] MD Colorectal Surgery Referring Provider: REKHA SALES [[id number]] Allergies As of Date: 12/15/2020 Noted Allergy Reaction TRAMADOL 12/15/2020 1 - Mental Status Change Date Reviewed: 12/15/2020 Reviewed by: Rebecca Ivey MD - Fully Assessed Reason for Visit: Consult [502] Cmt: hemorrhoids Primary Visit Diagnosis:Hemorrhoids, unspecified hemorrhoid type [K64.9] Prescriptions as of [...] Status:Closed by REBECCA IVEY on 12/15/20 Normal [facility] Vital Signs Date Time Vital Sign Value Performing Clinician Faci lity 08-13-2023 13:47-0500 Body height 182.88 cm DO [employer] Work Phone: [facility] 08-13-2023 13:47-0500 Body mass index (BMI) [Ratio] 32 kg/m2 DO [employer] Work Phone: [facility] 08-13-2023 13:47-0500 Body weight 107.04 kg DO Calin Samsa Work Phone: [facility] 08-13-2023 13:47-0500 Diastolic blood pressure 81 mm[Hg] DO Calin Samsa Work Phone: [facility] 08-13-2023 13:47-0500 Heart rate 88 /min DO Calincandida Mcarthursa Work Phone: [facility] 08-13-2023 13:47-0500 Respiratory rate 12 /min DO [employer]inc[employer] Mcarthursa Work Phone: [facility] 08-13-2023 13:47-0500 Systolic blood pressure 150 mm[Hg] DO Calincandida Gotti Work Phone: [facility] 07-23-2023 13:30-0500 Body height 182.88 cm Dawit Ball Other [facility] [employer] Other 07-23-2023 13:30-0500 Body mass index (BMI) [Ratio] 31.16 kg/m2 Dawit Ball Other [employer] Other 07-23-2023 13:30-0500 Body weight 104.24 kg Dawit Ball Other [employer] Other 07-23-2023 13:30-0500 Diastolic blood pressure 81 mm[Hg] Dawit Ball Other [employer] Other 07-23-2023 13:30-0500 Respiratory rate 12 /min Dawit Ball Other [employer] Other 07-23-2023 13:30-0500 Systolic blood pressure 133 mm[Hg] Dawit Ball Other [employer] Other 04-22-2023 10:00-0500 Body height 182.88 cm Dawit Ball Other [employer] Other 04-22-2023 10:00-0500 Body mass index (BMI) [Ratio] 30.78 kg/m2 Dawit Ball Other [employer] Other 04-22-2023 10:00-0500 Body weight 102.97 kg Dawit Ball Other [employer] Other 04-22-2023 10:00-0500 Diastolic blood pressure 111 mm[Hg] Dawit Ball Other [employer] Other 04-22-2023 10:00-0500 Respiratory rate 12 /min Dawit Ball Other [employer] Other 04-22-2023 10:00-0500 Systolic blood pressure 164 mm[Hg] Dawit Ball Other [facility] Other 02-11-2023 15:16-0400 Body height 182.9 cm Margie Li DO Work Phone: [facility] 02-11-2023 15:16-0400 Body mass index (BMI) [Ratio] 29.84 kg/m2 Margie Li DO Work Phone: [facility] 02-11-2023 15:16-0400 Body weight 99.79 kg Margie Ivany DO Work Phone: [facility] 01-16-2023 09:46-0400 Body height 182.9 cm Nena Bynum DO Work Phone: [facility] 01-16-2023 09:46-0400 Body mass index (BMI) [Ratio] 29.84 kg/m2 Nena Bynum DO Work Phone: [facility] 01-16-2023 09:46-0400 Body weight 99.79 kg Nena Bynum DO Work Phone: [facility] 01-10-2023 10:00-0400 Body height 182.88 cm Dawit Ball Other [facility] Other 01-10-2023 10:00-0400 Body mass index (BMI) [Ratio] 30.11 kg/m2 Dawit Ball Other [facility] Other 01-10-2023 10:00-0400 Body weight 100.7 kg Dawit Ball Other [facility] Other 01-10-2023 10:00-0400 Diastolic blood pressure 90 mm[Hg] Dawit Ball Other [facility] Other 01-10-2023 10:00-0400 Respiratory rate 12 /min Daiwt Ball Other [facility] Other 01-10-2023 10:00-0400 Systolic blood pressure 134 mm[Hg] Dawit Ball Other [facility] Other 11-19-2022 13:38-0400 Body height 182.9 cm Margie Li DO Work Phone: [facility] 11-19-2022 13:38-0400 Body mass index (BMI) [Ratio] 30.24 kg/m2 Margie Li DO Work Phone: [facility] 11-19-2022 13:38-0400 Body weight 101.15 kg Margie Li DO Work Phone: [facility] 10-08-2022 13:20-0400 Body height 182.9 cm Flip Hill PA-C Work Phone: [facility] 10-08-2022 13:20-0400 Body mass index (BMI) [Ratio] 30.24 kg/m2 Flip Hill PA-C Work Phone: [facility] 10-08-2022 13:20-0400 Body weight 101.15 kg Flip Hill PA-C Work Phone: [facility] 08-28-2022 13:16-0400 Body height 182.9 cm Margierudi Li DO Work Phone: [facility] 08-28-2022 13:16-0400 Body mass index (BMI) [Ratio] 30.24 kg/m2 Margierudi Evansmanday DO Work Phone: [facility] 08-28-2022 13:16-0400 Body weight 101.15 kg Margie Ivany DO Work Phone: [facility] 07-20-2020 14:44-0500 BMI (Body Mass Index) 30.24 kg/m2 [facility] 07-20-2020 14:44-0500 Body weight 101.15 kg [facility] 07-20-2020 14:44-0500 Height 182.9 cm [facility] 07-01-2019 09:59-0500 BMI (Body Mass Index) 30.79 kg/m2 [facility] 07-01-2019 09:59-0500 Body weight 102.97 kg [facility] 07-01-2019 09:59-0500 Height 182.9 cm [facility] 07-30-2017 11:30-0500 BMI (Body Mass Index) 30.79 kg/m2 Karthik Calloway [facility] Work Phone: 07-30-2017 11:30-0500 Height 182.9 cm Karthik Elli [facility] Work Phone: 07-30-2017 11:30-0500 Weight 102.97 kg Karthik Elli [facility] Work Phone: 01-29-2017 12:07-0400 BMI (Body Mass Index) 29.97 kg/m2 Karthik Elli [facility] Work Phone: 01-29-2017 12:07-0400 Height 182.9 cm Karthik Elli [facility] Work Phone: 01-29-2017 12:07-0400 Weight 100.25 kg Karthik Calloway [facility] Work Phone: Encounters Encounter Date Encounter Type Care Provider Facility Start: 09-05-2023 End: 09-05-2023 ambulatory Calin P Samsa [facility] Start: 09-05-2023 End: 09-05-2023 ambulatory DO Calin Samsa Work Phone: [facility] Work Phone: Start: 09-05-2023 End: 09-05-2023 Departed Referred DO Calin Samsa Work Phone: [facility] Start: 09-04-2023 End: 09-04-2023 ambulatory Calin P Samsa Facility:[facility] Start: 09-04-2023 End: 09-04-2023 ambulatory DO Calin Samsa Work Phone: [facility] Work Phone: Start: 09-04-2023 End: 09-04-2023 Departed Referred DO Calin Samsa Work Phone: [facility] Start: 09-04-2023 Non-patient / Non-visit DO Shila tirado Samsa Work Phone: [facility] Work Phone: Start: 08-28-2023 Non-patient / Non-visit DO Shila tirado Samsa Work Phone: [facility] Work Phone: Start: 08-22-2023 Non-patient / Non-visit DO Shila tirado Samsa Work Phone: [facility] Work Phone: Start: 08-21-2023 Non-patient / Non-visit DO Shila tirado Samsa Work Phone: [facility] Work Phone: Start: 08-15-2023 Non-patient / Non-visit DO Shila Gotti Work Phone: [facility] Work Phone: Start: 08-13-2023 End: 08-13-2023 Patient encounter procedure DO Calin Gotti Work Phone: [facility] Work Phone: Start: 07-23-2023 End: 07-23-2023 ambulatory Dawit Lorenz Other [facility] Other Start: 07-23-2023 Patient encounter procedure [facility]it [facility] Start: 07-10-2023 End: 07-10-2023 ambulatory Dawit Lorenz Other [facility] Other Start: 07-10-2023 Telephone encounter Dawit [facility] Start: 07-08-2023 End: 07-08-2023 ambulatory Dawit Lorenz Other [facility] Other Start: 07-08-2023 Telephone encounter Dawit [facility]AF[facility]TE [facility] Start: 07-07-2023 End: 07-07-2023 ambulatory Dawit Lorenz Other [facility] Other Start: 07-07-2023 Telephone encounter Dawit [facility]AF[facility]TE [facility] Start: 06-25-2023 End: 06-25-2023 Orders Only Janet Spangler MA [facility] Comment on above: Status post total kn ee replacement, bilateral (Primary Dx) Start: 06-25-2023 Telephone encounter Dawit [facility]TE [facility] Start: 05-07-2023 End: 05-07-2023 ambulatory Dawit Lorenz Other [facility] Other Start: 05-07-2023 Telephone encounter Dawit [facility]AF[facility]TE [facility] Start: 04-24-2023 End: 04-24-2023 ambulatory Dawit Lorenz Other [facility] Other Start: 04-24-2023 Telephone encounter Dawit [facility] Start: 04-22-2023 End: 04-22-2023 ambulatory Dawit Lorenz Other [facility] Other Start: 04-22-2023 Patient encounter procedure Dawit [facility] Start: 04-19-2023 End: 04-19-2023 ambulatory Dawit Lorenz Other [facility] Other Start: 04-19-2023 Telephone encounter Dawit Lorenz [facility] Start: 04-17-2023 End: 04-17-2023 ambulatory Dawit Lorenz Other [facility] Other Start: 04-17-2023 Telephone encounter [facility] Start: 02-11-2023 End: 02-11-2023 Phys/qhp telephone evaluation 5-10 min Margie Li DO Work Phone: [facility] Comment on above: Hallux rigidus of le ft foot (Primary Dx) Start: 02-11-2023 End: 02-15-2023 James Spangler MA [facility] Start: 01-16-2023 End: 01-20-2023 ambulatory DAWIT LORENZ [facility] Start: 01-16-2023 End: 01-16-2023 Office outpatient visit 10 minutes Nena Bynum DO Work Phone: [facility] Comment on above: Status post total kn ee replacement, bilateral (Primary Dx) Start: 01-10-2023 End: 01-10-2023 ambulatory Dawit Lorenz Other [facility] Other Start: 01-10-2023 Patient encounter procedure Dawit [facility] Start: 11-19-2022 End: 11-19-2022 ambulatory DAWIT LORENZ [facility] Start: 11-19-2022 End: 11-19-2022 Office outpatient visit 15 minutes Margie Li DO Work Phone: [facility] Comment on above: Hallux rigidus of le ft foot (Primary Dx) Start: 10-08-2022 End: 10-08-2022 ambulatory DAWIT LORENZ [facility] Start: 10-08-2022 End: 10-08-2022 Office outpatient visit 5 minutes Flip Hill PA-C Work Phone: [facility] Comment on above: Hallux rigidus of le ft foot (Primary Dx); Metatarsalgia, left foot Start: 08-30-2022 Refill Janet Spangler MA [facility] Start: 08-28-2022 End: 09-01-2022 Refill Becca Carrasco Picker / Packer [facility] Start: 08-28-2022 End: 08-28-2022 Office outpatient new 30 minutes Margie Li DO Work Phone: [facility] Comment on above: Hallux rigidus of le ft foot (Primary Dx); Eaton's metatarsalgia, left Start: 03-19-2022 End: 03-20-[address] NONE LISTED REQUEST Facility: Start: 08-11-2021 Refill Nena spencer DO Work Phone: [facility] Comment on above: Status post total kn ee replacement, bilateral (Primary Dx) Start: 08-11-2020 End: 08-11-2020 Orders Only Ana Todd Work Phone: [facility] Start: 07-20-2020 End: 07-20-2020 Office outpatient visit 10 minutes Nena Bynum Work Phone: [facility] Comment on above: Status post total kn ee replacement, bilateral (Primary Dx) Start: 07-01-2019 End: 07-01-2019 Office outpatient visit 10 minutes Nena Bynum Work Phone: [facility] Comment on above: Status post total kn ee replacement, bilateral (Primary Dx) Start: 07-30-2017 Office/outpatient vi sit, est, level 3 Karthik Mathias Elli Work Phone: [facility] Start: 01-29-2017 End: 01-29-2017 Office outpatient visit 15 minutes Karthik Mathias Elli Work Phone: [facility] Comment on above: 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);Status post total right knee replacement Procedures Date Procedure Procedure Detail Performing Clinician Start: 09-04-2023 Acid Fast Smear DO Kanchan nunn Veeva Work Phone: Start: 09-04-2023 AFB Specimen Processing DO Calin Veeva Work Phone: Start: 09-04-2023 Microscopic observat ion [Identifier] in Unspecified specimen by Gram stain DO Calin Veeva Work Phone: Start: 10-08-2022 Follow-up visit Follow-up [facility] Start: 03-19-[address] JOANNE NGUYEN REQUEST Comment on above: Performed By: #### [facility] #### [facility] [address] [place] [address] Dr. Joni Sanders Screening for malign ant neoplasm of colon Dawit Lorenz Other Plan of Treatment Date Care Activity Detail Author Start: 08-30-2028 Tetanus vaccination Tetanus: Every 10yrs [facility] Start: 09-04-2023 Acid Fast Culture Acid Fast Culture [facility] Start: 02-15-2023 COVID-19 Vaccine ( season) COVID-19 Vaccine ( season) [facility] Start: 02-15-2023 Influenza vaccination [facility] Start: 02-11-2023 End: 02-11-2023 Patient encounter procedure 02/11/2023 1:15 PM EDT Office Visit [facility] [address] [place] [address] Margie Li DO [address] [place] [address] [facility] Start: 01-14-2023 End: 01-14-2023 Patient encounter procedure 01/14/2023 1:15 PM EDT Office Visit [facility] [address] [place] [address] Margie Li, DO [address] [place] [address] [facility] Start: 11-19-2022 End: 11-19-2022 Patient encounter procedure 11/19/2022 1:30 PM EDT Office Visit [facility] [address] [place] [facility] [address] Margie Li, DO [address] [place] [address] [facility] Start: 10-08-2022 End: 10-08-2022 Patient encounter procedure 10/08/2022 Office Visit Orthopedic Surgery Margie Li, DO [address] [place] [address] [facility] Start: 02-15-2022 Influenza vaccination Sequential Influenza Vaccine (#1) [facility] Start: 07-05-2021 COVID-19 Vaccine (4 - Booster for Pfizer series) COVID-19 Vaccine (4 - Booster for Pfizer series) [facility] Start: 07-05-2021 COVID-19 Vaccine (4 - Pfizer series) COVID-19 Vaccine (4 - Pfizer series) [facility] Start: 07-05-2021 COVID-19 Vaccine (5 - Booster) COVID-19 Vaccine (5 - Booster) [facility] Start: 02-15-2021 Influenza vaccination Sequential Influenza Vaccine (#1) [facility] Start: 07-01-2020 End: 07-01-2020 Office Visit 07/01/2020 Office Visit Orthopedic Surgery Nena Bynum, DO [address] [place] [address] [phone] [facility] Start: 02-16-2020 Influenza vaccination given Sequential Influenza Vaccine (#1) [facility] Start: 06-30-2019 Ambulatory 06/30/2019 Office Visit Orthopedic Surgery Karthik Calloway MD [address] [place] [address] [phone] [facility] Start: 02-15-2019 Influenza vaccination given SEQUENTIAL INFLUENZA VACCINE (#1) [facility] Start: 10-25-2018 Administration of herpes zoster vaccine Zoster Vaccines (2 of 2) [facility] Start: 07-30-2017 Ambulatory 07/30/2017 Office Visit Orthopedic Surgery Karthik Calloway MD [address] [facility] [address] [place] [address] [phone] [facility] Start: 02-15-2017 Influenza vaccination SEQUENTIAL INFLUENZA VACCINE (#1) [facility] Work Phone: Start: 02-15-2017 SEQUENTIAL INFLUENZA VACCINE (#1) SEQUENTIAL INFLUENZA VACCINE (#1) [facility] Work Phone: Start: 2016 Fall risk assessment Falls Risk Assessment [facility] Start: 2016 Pneumococcal vaccination PNEUMOCOCCAL VACCINE AGE 65+ (1 of 2 - PCV13) [facility] Work Phone: Start: 2016 PNEUMOCOCCAL VACCINE AGE 65+ (1 of 2 - PCV13) PNEUMOCOCCAL VACCINE AGE 65+ (1 of 2 - PCV13) [facility] Work Phone: Start: 2011 Zoster vacc, sc ZOSTER VACCINE [facility] Work Phone: Start: 2001 Screening for malignant neoplasm of colon [facility] Start: 1969 Hepatitis C antibody, confirmatory test Hepatitis C Screening [facility] Start: 1969 Hepatitis C screening Hepatitis C Screening [facility] Start: 1967 COVID-19 Vaccine (1 of 2) COVID-19 Vaccine (1 of 2) [facility] Start: 1963 Adolescent depression screening assessment Depression Screening (PHQ9) [facility] Start: 1963 Depression screening using PHQ-9 (Patient Health Questionnaire 9) score Depression Screening (PHQ-2/9) [facility] Start: 1956 COVID-19 Vaccine (1) COVID-19 Vaccine (1) [facility] Start: 1954 History and physical examination, annual for health maintenance Wellness Visit [facility] Start: 1950 Colonoscopy COLONOSCOPY [facility] Work Phone: Start: 1951 Fall risk assessment Falls Risk Assessment [facility] Start: 1950 Hepatitis C antibody, confirmatory test HEPATITIS C SCREENING [facility] Start: 1951 Prostate specific antigen measurement PSA Level [facility] Start: 1951 Screening for malignant neoplasm of colon [facility] Start: 1950 TETANUS EVERY 10 YR TETANUS EVERY 10 YR [facility] Work Phone: Start: 1950 End: 1951 HEPATITIS C SCREENING HEPATITIS C SCREENING [facility] Work Phone: Start: 1950 Screening colonoscopy COLONOSCOPY [facility] Work Phone: Start: 1950 End: 1950 Tetanus vaccination [facility] Comprehensive metabo lic 2000 panel - Serum or Plasma [facility] CT Chest W contrast IV [facility] US Heart Transthoracic [facility] Immunizations Immunization Date Immunization Notes Care Provider Fa gabe 09-12-2020 COVID-19 mRNA, Comirnaty (Pfizer) DO [facility] Work Phone: [facility] 08-15-2020 COVID-19 mRNA, Comirnaty (Pfizer) DO [facility] Work Phone: [facility] 05-09-2020 influenza virus vaccine, split virus (incl. purified surface antigen) Dawit Lorenz Other [facility] Other 05-09-2020 influenza virus vaccine, unspecified formulation DO [facility] Work Phone: [facility] 08-30-2018 tetanus and diphther ia toxoids, adsorbed, preservative free, for adult use (5 Lf of tetanus toxoid and 2 Lf of diphtheria toxoid) Dawit Lorenz Other [facility] 06-04-2018 tetanus and diphther ia toxoids, adsorbed, preservative free, for adult use (5 Lf of tetanus toxoid and 2 Lf of diphtheria toxoid) Dawit Lorenz Other [facility] 02-03-2018 pneumococcal polysaccharide vaccine, 23 valent Dawit Lorenz Other [facility] 11-26-2016 pneumococcal conjuga te vaccine, 13 valent Dawit Lorenz Other [facility] Payers Date Payer Category Payer Self-pay 2016 [place]IC[place]AN (PPO) [id number] 2016-Present [id number] 2016 [place]) [id number] 2016-Present [id number] 2016 Medicare [id number] 1959 Medicare [id number] 1959 Self-pay [id number] 1950 Unknown [id number] 1950 Unknown [id number] [id number] 1950 Unknown [id number] [id number] 1950 Unknown [id number] [id number] 1950 Unknown [id number] [id number] 1950 Unknown [id number] [id number] 1950 Unknown [id number] [id number] 1950 Unknown [id number] [id number] 1950 Unknown [id number] [id number] 1950 Unknown [id number] 1950 Unknown [id number] [id number] Medicare [id number] Unknown [id number] Unknown [id number] Unknown [id number] Social History Date Type Detail Facility Start: 07-30-2017 End: 08-13-2023 Tobacco smoking status [facility] Never smoker [facility] Work Phone: Start: 1950 Sex Assigned At Not on file O [facility] Work Phone: Start: 07-01-2019 End: 02-11-2023 Alcohol intake Current drinker of alcohol (finding) [facility] Start: 07-20-2020 End: 08-28-2022 Tobacco use and exposure Never used [facility] Start: 08-18-2022 End: 10-08-2022 Exposure to SARS-CoV-2 (event) Not sure [facility] Start: 08-28-2022 End: 02-11-2023 History of Social function [facility] Start: 08-28-2022 End: 02-11-2023 Tobacco use panel [facility] Start: 1950 Sex Assigned At Male F [facility] Medical Equipment Procedure Code Equipment Code Equipment Origin al Text Equipment Identifier Dates Cement 1 X 40 Pal[place] Bone Single - [id number] Start: 08-23-2014 Stem Short Cemen prerna Persona - [id number] Start: 08-23-2014 Stem Sz F Tib 5d eg Nonpor Lt Persona - [id number] Start: 08-23-2014 Femoral Sz9 Lt N rw Ps Cmt Ccr Persona - [id number] Start: 08-23-2014 Patella 32mm All Poly Persona - [id number] Start: 08-23-2014 Articular Surf E f 6-9 14mm Lt Ps Vivacit-E Persona - [id number] Start: 08-23-2014 Stem Short Cemen prerna Persona - [id number] Start: 06-25-2016 Patella 32mm All Poly Vivacit-E - [id number] Start: 06-25-2016 Articular Surf 1 4mm 6-9ef Rt Cps Ve Persona - [id number] Start: 06-25-2016 Simplex Hv With Gentamicin Cement Start: 06-25-2016 Stem Sz F Tib 5d eg Nonpor Rt Persona - [id number] Start: 06-25-2016 Femoral Sz9 Rt N rw Ps Cmt Ccr Persona - [id number] Start: 06-25-2016 Cement 1 X 40 [place] Bone Single - [id number] Start: 08-23-2014 Stem Short Cemen prerna Persona - [id number] Start: 08-23-2014 Stem Sz F Tib 5d eg Nonpor Lt Persona - [id number] Start: 08-23-2014 Femoral Sz9 Lt N rw Ps Cmt Ccr Persona - [id number] Start: 08-23-2014 Patella 32mm All Poly Persona - [id number] Start: 08-23-2014 Articular Surf E f 6-9 14mm Lt Ps Vivacit-E Persona - [id number] Start: 08-23-2014 Stem Short Cemen prerna Persona - [id number] Start: 06-25-2016 Patella 32mm All Poly Vivacit-E - [id number] Start: 06-25-2016 Articular Surf 1 4mm 6-9ef Rt Cps Ve Persona - [id number] Start: 06-25-2016 Simplex Hv With Gentamicin Cement Start: 06-25-2016 Stem Sz F Tib 5d eg Nonpor Rt Persona - [id number] Start: 06-25-2016 Femoral Sz9 Rt N rw Ps [facility] Ccr Persona - [id number] Start: 06-25-2016 Cement 1 X 40 [place] Bone Single - [id number] Start: 08-23-2014 Stem Short Cemen prerna Persona - [id number] Start: 08-23-2014 Stem Sz F Tib 5d eg Nonpor Lt Persona - [id number] Start: 08-23-2014 Femoral Sz9 Lt N rw Ps Cmt Ccr Persona - [id number] Start: 08-23-2014 Patella 32mm All Poly Persona - [id number] Start: 08-23-2014 Articular Surf E f 6-9 14mm Lt Ps Vivacit-E Persona - [id number] Start: 08-23-2014 Stem Short Cemen prerna Persona - [id number] Start: 06-25-2016 Patella 32mm All Poly Vivacit-E - [id number] Start: 06-25-2016 Articular Surf 1 4mm 6-9ef Rt Cps Ve Persona - [id number] Start: 06-25-2016 Simplex Hv With Gentamicin Cement Start: 06-25-2016 Stem Sz F Tib 5d eg Nonpor Rt Persona - [id number] Start: 06-25-2016 Femoral Sz9 Rt N rw Ps [facility] Persona - [id number] Start: 06-25-2016 Cement 1 X 40 [place] Bone Single - [id number] Start: 08-23-2014 Stem Stephenie graff Persona - [id number] Start: 08-23-2014 Stem Sz F Tib 5d eg Nonpor Lt Persona - [id number] Start: 08-23-2014 Femoral Sz9 Lt N rw Ps [facility] C[facility] Persona - [id number] Start: 08-23-2014 Patella 32mm All Poly Persona - [id number] Start: 08-23-2014 Articular Surf E f 6-9 14mm Lt Ps Vivacit-E Persona - [id number] Start: 08-23-2014 Stem Short Cemen prerna Persona - [id number] Start: 06-25-2016 Patella 32mm All Poly Vivacit-E - [id number] Start: 06-25-2016 Articular Surf 1 4mm 6-9ef Rt Cps Ve Persona - [id number] Start: 06-25-2016 Simplex Hv With Gentamicin Cement [id number] Start: 06-25-2016 Stem Sz F Tib 5d eg Nonpor Rt Persona - [id number] Start: 06-25-2016 Femoral Sz9 Rt N rw Ps Cmt Ccr Persona - [id number] Start: 06-25-2016 Clinical Notes 12-15-2020 to [...] exercise to achieve/maint ain a normal BMI. [facility] Other 01-24-2024 Evaluation note* Encounter Date Diagnosis Assessment Notes Treatment Notes Treatment Clinical Notes Jun, Subacute cough (ICD-10 - R05.2) [facility] Other 01-21-2024 Evaluation note* Encounter Date Diagnosis Assessment Notes Treatment Notes Treatment Clinical Notes Jun, Subacute cough (ICD-10 - R05.2) [facility] Other 01-09-2024 Evaluation note* Encounter Date Diagnosis Assessment Notes Treatment Notes Treatment Clinical Notes Jun, Primary hypertension (ICD-10 - I10) [facility] Other 11-21-2023 Evaluation note* Encounter Date Diagnosis Assessment Notes Treatment Notes Treatment Clinical Notes Apr, Acute bronchitis due to other specified organisms (ICD-10 - J20.8) [facility] Other 11-08-2023 Evaluation note* Encounter Date Diagnosis Assessment Notes Treatment Notes Treatment Clinical Notes Apr, Primary hypertension (ICD-10 - I10) [facility] Other 11-06-2023 Evaluation note* Encounter Date Diagnosis [...] PSA (prostate specific antigen) (ICD-10 - Z12.5) [employer] PSA [facility] Other 11-01-2023 Evaluation note* Encounter Date Diagnosis Assessment Notes Treatment Notes Treatment Clinical Notes Apr, Screening PSA (prostate specific antigen) (ICD-10 - Z12.5) Apr, Hyperlipidemia type II (ICD-10 - E78.01) Apr, Gastro-esophageal reflux disease with esophagitis, without bleeding (ICD-10 - K21.00) Apr, Fatigue, unspecified type (ICD-10 - R53.83) Apr, High risk medication use (ICD-10 - Z79.899) [facility] Other 08-28-2023 History of Present illness Narrative* Margie Li, DO - 02/11/2023 2:00 PM EDT Telehealth Visit Via Phone Call Patient: Bryan Harris Date of : 1950 (72 y.o. male) Patient Patient Location: [address] [place] [address] [place] [address] Provider Location: [facility] I discussed risks, benefits and alternatives of [...] there are inherent diagnostic limitations compared to zsvc-pi-olru evaluations. We elected toproceed with the telephone [...] expedite correspondence this note was generated by [employer] voice recognition software. Somegrammatical or spelling errors may occur using the system. documented in this [id number] History of Present illness Narrative* Nnea Bynum, - 01/16/2023 10:35 AM EDT [facility] [address] [place] [address] Patient Name: Bryan Harris Patient Age: 72 [...] KNEE ARTHROPLASTY; Surgeon: Karthik Calloway MD; Location: [facility] OR; Service: ARTHROPLASTY KNEE TOTAL Right 06/25/2016 Procedure: RIGHT TOTAL KNEE ARTHROPLASTY ; Surgeon: Karthik Calloway MD; Location: [facility] OR; Service: BASAL CELL CARCINOMA [...] mouth every morning . vit A-vit C-vit W-upmj-hytmpb 7,160-113-100 gfsn-oj-pvkc Tab Take 1 tablet by mouth every [...] Imaging: X-rays of the left knee from [facility] taken today are reviewed. My personal interpretation [...] the patellar space has been stable since 2020. On history, physical exam and imaging his [...] expedite correspondence this note was generated by [employer] voice recognition software. Somegrammatical or spelling errors may occur using the system. documented in this [id number] Evaluation note* Encounter Date Diagnosis Assessment Notes Treatment Notes Treatment Clinical Notes Dec, Laceration of scalp, initial encounter (ICD-10 - S01.01XA) Cleanse scalp w/ soap and water [facility] Other 06-05-2023 History of Present illness Narrative* [...] the left great toe does not apparently insulator apprentice the ground. IMAGING: Please see dictated report. ASSESSMENT: Left hallux rigidus Left metatarsalgia PLAN: I performed a left first MTP joint injection at today's visit. Please see separate procedure note. I recommended that we proceed with custom orthotics with a Eaton's extension, built-in metatarsal pad. Order was placed to [facility] orthopedics. We discussed left first MTP joint arthrodesis at today'isit. We discussed the fact that he would have to be nonweightbearing following the procedure. Thepatient would like to hold off on any surgery at today's visit. We will see him back in 6 weeks. Radiographs next visit: None Margie Li DO Orthopedic Foot and Ankle Surgeon To expedite correspondence, this note was generated by [employer] voice recognition software. Some grammatical or spelling errors may occur using this system. documented in this [id number] History of Present illness Narrative* Flip [place] [...] expedite correspondence, this note was generated by [employer] voice recognition software. Some grammatical or spelling errors may occur using this system. documented in this [id number] History of Present illness Narrative* Margie Li, DO - 08/28/2022 1:46 PM EDT 08/28/22 Bryan Cantu Kimberly 1950 HISTORY: Bryan is a 72 y.o. [...] the left great toe does not apparently insulator apprentice the ground. IMAGING: Please see dictated report. [...] expedite correspondence, this note was generated by [employer] voice recognition software. Some grammatical or spelling errors may occur using this system. documented in this [id number] NoteHNO ID: [id number] Author: Rebecca Ivey MD Service: ? Author Type: Physician Type: Progress Notes Filed: 12/15/2020 8:14 PM Note Text: COLORECTAL SURGERY December 15, 2020 Bryan Harris 70 year old This consult was requested by and my final recommendations will be communicated to the requesting health care provider by way of the shared medical record for internal providers or letter via the [employer] for external providers. 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, Carter Nunez Anoscopy: The patient [...] of treatment plan: radha Ivey MD [facility]* Diagnosis Status post total knee replacement, bilateral- Primary [facility] Hallux rigidus of left foot- Primary Eaton's metatarsalgia, left [facility] Diagnosis Hallux rigidus of left foot- Primary Metatarsalgia, left foot [facility] Hallux rigidus of left foot- Primary [facility] Diagnosis Status post total knee replacement, bilateral- Primary [facility] Diagnosis Hallux rigidus of left foot- Primary [facility] noteNo InformationNomobiliThinkB[facility] [employer] Other Evaluation note* Diagnosis Status post total knee replacement, bilateral- Primary [facility]* Diagnosis Onset Date Resolution Status Nausea & vomiting acute Primary hypertension acute Subacute cough acute Dyspnea on effort noneactive Murmur noneactive [facility] Work Phone: History general Narrative - Reported* Type Description Date Medical History 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 Medical History Benign prostatic hyp erplasia with lower urinary tract symptoms Medical History Hyperlipidemia type II Medical History Gastro-esophageal re flux disease with esophagitis, without bleeding Surgical History both knee replaced Surgical History hand surgery Hospitalization History SEE ABOVE [facility] Other Assessments Diagnosis Primary osteoarthritis of ri [...] note may be different from the original. [facility] [address] [place] [address], [facility] [address] [place] [id number] Patient Name: Bryan Harris Patient Age: 66 [...] that, that are a little bit excessive. Karhtik Calloway MD in this encounter* Karthik Calloway MD - 01/29/2017 12:04 PM EDT Formatting of this note may be different from the original. [facility] [address] [place] [address] [phone] [place], [place] [address] Patient Name: Bryan Harris Patient Age: 66 [...] and then that might just be that henbernadettes to get Aleve then for a week and help with the inflammation and swelling, and ice it a littlebit, but he will try to avoid things like that, that are a little bit excessive. Karthik Calloway MD in this encounter* Nena Bynum, DO - 07/01/2019 10:05 AM EST [facility] [address] [address] Patient Name: Bryan Harris Patient Age: 69 [...] KNEE ARTHROPLASTY; Surgeon: Karthik Calloway MD; Location: [facility] OR; Service: ARTHROPLASTY KNEE TOTAL Right 06/25/2016 Procedure: RIGHT TOTAL KNEE ARTHROPLASTY ; Surgeon: Karthik Calloway MD; Location: [facility] OR; Service: BASAL CELL CARCINOMA [...] file Gets together: Not on file Attends jehovah's witness service: Not on file Active member of [...] mouth every morning . vit A-vit C-vit G-pxsg-evwzgw (EYE VITAMIN AND MINERALS) 7,160-113-100 xpon-lw-mbrt Tab Take 1 tablet by mouth every [...] with no interval change from most recentimaging. Garibaldi view shows the patella tracks well without [...] expedite correspondence this note was generated by [employer] voice recognition software. Somegrammatical or spelling errors may occur using the system. documented in this encounter* Nena Bynum, - 07/20/2020 2:42 PM EST [facility] [address] [place] [address] Patient Name: Bryan Harris Patient Age: 70 [...] KNEE ARTHROPLASTY; Surgeon: Karthik Calloway MD; Location: [facility] OR; Service: ARTHROPLASTY KNEE TOTAL Right 06/25/2016 Procedure: RIGHT TOTAL KNEE ARTHROPLASTY ; Surgeon: Karthik Calloway MD; Location: [facility] OR; Service: BASAL CELL CARCINOMA [...] file Gets together: Not on file Attends jehovah's witness service: Not on file Active member of [...] mg by mouth daily. vit A-vit C-vit J-tsny-hobrua (EYE VITAMIN AND MINERALS) 7,160-113-100 mtkn-su-bofx Tab Take 1 tablet by mouth every [...] with no interval change from most recentimaging. Garibaldi view shows the patella tracks well in [...] expedite correspondence this note was generated by [employer] voice recognition software. Somegrammatical or spelling errors may occur using the system. 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 Advance Directives and Living Will [...] Code 08/23/2014 6:45 AM 08/25/2014 7:58 PM Advance Directive Response Recorded Date/ Time Advance Directives No October 19, 2020 11:13am Summary Purpose Family History Relationship Condition Age at Onset Recorded Date/T christine father Unknown Not Specified Unknown Chief Complaint and Reason for Visit Chief Complaint not doing good - per Dr Lorenz Amb Documentation Unknown Reason for Visit Nausea & vomiting Primary hypertension Subacute cough Dyspnea on effort Murmur Chief Complaint not doing good - per Dr Kelechi Thornton Documentation Unknown Unknown Reason for Visit Nausea & vomiting Primary hypertension Subacute cough Dyspnea on effort Murmur Additional Source Comments Reason for Visit (unrecogniz ed section and content) Reason Comments Follow-up Reason Comments other Lef [...] ized section and content) DATE CREATED AUTHOR 07/19/2021 [facility] DATE CREATED AUTHOR AUTHOR'S ORGANIZ ATION 03/22/2022 [facility] [place] [facility] DATE CREATED AUTHOR AUTHOR'S ORGANIZ ATION 02/16/2023 [facility] DATE CREATED AUTHOR AUTHOR'S ORGANIZ ATION 09/06/2023 [facility] Care Teams (unrecognized sec tion and content) Tax Representative Relationship Specialty Start Date End Date Dawit Lorenz, [address] [facility] [place] [address] [place] [address] PCP - General Internal Medicine 06/29/14 Dawit Lorenz, DO [address] [facility] [place] [address] [place] [address] Internal Medicine 06/29/14 Karthik Calloway MD Consulting Physician Orthopedic Surgery 01/28/17 Tax Representative Relationship Specialty Start Date End Date Dawit Lorenz, DO [address] [facility] [place] [address] PCP - General Internal Medicine 06/29/14 Dawit Lorenz, DO [address] [facility] [place] [address] Internal Medicine 06/29/14 Karthik Calloway MD [address] [facility] [place] [address] Consulting Physician Orthopedic Surgery 01/28/17 Tax Representative Relationship Specialty Start Date End Date Dawit Lorenz DO [address] [facility] [place] [address] PCP - General Internal Medicine 06/29/14 Dawit Lorenz, DO [address] [facility] [place] [address] Internal Medicine 06/29/14 Karthik Calloway MD [address] [facility] [place] [address] Consulting Physician Orthopedic Surgery 01/28/17 Tax Representative Relationship Specialty Start Date End Date Dawit Lorenz DO [address] [facility] [place] [address] PCP - General Internal Medicine 06/29/14 Dawit Lorenz, DO [address] [facility] [place] [address] Internal Medicine 06/29/14 Karthik Calloway MD [address] [facility] [place] [address] Consulting Physician Orthopedic Surgery 01/28/17 Tax Representative Relationship Specialty Start Date End Date Dawit Lorenz DO [address] [facility] [place] [address] PCP - General Internal Medicine 06/29/14 Dawit Lorenz DO [address] [facility] [place] [address] Internal Medicine 06/29/14 Karthik Calloway MD [address] [facility] [place] [address] Consulting Physician Orthopedic Surgery 01/28/17 Tax Representative Relationship Specialty Start Date End Date Dawit Lorenz DO [address] [facility] [place] [address] PCP - General Internal Medicine 06/29/14 Dawit Lorenz DO [address] [facility] [place] [address] Internal Medicine 06/29/14 Karthik Calloway MD [address] [facility] [place] [address] Consulting Physician Orthopedic Surgery 01/28/17 Tax Representative Relationship Specialty Start Date End Date Dawit Lorenz DO [address] [facility] [place] [address] PCP - General Internal Medicine 06/29/14 Dawit Lorenz DO [address] [facility] [place] [address] Internal Medicine 06/29/14 Karthik Calloway MD [address] [facility] [place] [address] Consulting Physician Orthopedic Surgery 01/28/17 Tax Representative Relationship Specialty Start Date End Date Dawit Lorenz DO [address] [facility] [place] [address] PCP - General Internal Medicine 06/29/14 Dawit Lorenz DO [address] [facility] [place] [address] Internal Medicine 06/29/14 Karthik Calloway MD [address] [place] [address] [place] [address] Consulting Physician Orthopedic Surgery 01/28/17 Tax Representative Relationship Specialty Start Date End Date Dawit Lorenz DO [address] [place] [address] [place] [address] PCP - General Internal Medicine 06/29/14 Dawit Lorenz DO [address] [facility] [place] [address] Internal Medicine 06/29/14 Karthik Calloway MD [address] [place] [address] [place] [address] Consulting Physician Orthopedic Surgery 01/28/17 Team Status: Inactive Member Role Status Dates Dawit Lorenz DO Primary Care Provide r, Attending Provider Active Start: August 13, 2023 End: August 13, 2023 Team Status: Active Member Role Status Dates Dawit Lorenz DO Primary Care Provide r, Attending Provider Active Start: August 15, 2023 Team Status: Active Member Role Status Dates Dawit Lorenz DO Primary Care Provide r, Attending Provider Active Start: August 21, 2023 Team Status: Active Member Role Status Dates Dawit Lorenz DO Primary Care Provide r, Attending Provider Active Start: August 22, 2023 Team Status: Active Member Role Status Dates Dawit Lorenz DO Primary Care Provide r, Attending Provider Active Start: August 28, 2023 Team Status: Active Member Role Status Dates Dawit Lorenz DO Primary Care Provide r, Attending Provider Active Start: September 04, 2023 Team Status: Inactive Member Role Status Dates Calin Gotti DO Attending Provider Active St art: September 04, 2023 End: September 04, 2023 Team Status: Inactive Member Role Status Dates Calin P Samsa , DO Attending Provider Active St art: September 05, 2023 End: September 05, 2023 Goals (unrecognized section and content) Goals may be documented in a n alternate section FOR RECORDS PERTAINING TO PATIENTS WHO ARE [...] BE BASED ON THE PRIMARY CLINICAL RECORDS. [facility] [employer] [facility]. provides no warranty or guarantee of the accuracy or completeness of information in this document.
--- NOTE | 2023-09-11 11:56 | CT_ITS ---
[address] [address] Patient Name: SAV RAYMUNDO MRN: [id number] date: 1950 Sex: M Assigned Patient Location: LAB Current Patient Location: Accession/Order Number: [id number] Exam Date: 09/11/2023 13:00 Report Date: 09/12/2023 06:35 At the request of: YULI MARISCAL Procedure: CT abdomen pelvis w con EXAMINATION: CT abdomen pelvis w con HISTORY: Abdominal Bloating, Epigastric Pain, Loss Of Appetite COMPARISON: CT chest 08/15/2023 TECHNIQUE: Axial, Coronal, and Sagittal images were obtained without and/or with IV contrast as indicated by examination type. Dose reduction techniques were achieved by using automated exposure control and/or adjustment of mA and/or kV according to patient size and/or use of iterative reconstruction technique. FINDINGS: LUNG BASES: Right pleural effusion 4.6 cm in thickness with passive atelectasis of right lower lobe. Small amount of fluid within left posterior costophrenic angle. LIVER: No enlargement, atrophy, suspicious density, or significant focal lesion. BILIARY: Gallbladder wall thickening up to 5 mm; no appreciable stones or abnormal duct dilation. PANCREAS: No lesion, fluid collection, or abnormal duct dilatation. SPLEEN: No enlargement or focal lesion. ADRENALS: No mass or enlargement. KIDNEYS: No mass, obstruction, or calcification. BOWEL/MESENTERY: Diverticulosis of sigmoid colon without acute inflammatory changes. No visible mass, obstruction, or bowel wall thickening. AORTA/VASCULAR: No aneurysm or dissection. RETROPERITONEUM: No mass or adenopathy. LYMPH NODES: No adenopathy. URINARY BLADDER: No visible focal wall thickening, lesion, or calculus. PELVIC ORGANS: No visible mass. Pelvic organs appropriate for patient age. ABDOMINAL WALL: Tiny fat filled left inguinal hernia without strangulation. BONES: No bony lesion or fracture. OTHER: Trace amount of free fluid within pelvic cul-de-sac. CT/CT abdomen pelvis w con IMPRESSION: 1. Large right pleural effusion; tiny left pleural effusion; unchanged. 2. Abnormal gallbladder wall thickening suggestive of cholecystitis. Small amount of free fluid within the cul-de-sac; nonspecific but may be secondary to gallbladder inflammatory changes. 3. Distal colonic diverticulosis. Electronically authenticated by: JAMEL JARRETT Date: 09/12/2023 06:35
[2023-09-11 12:04] LABS: Estimated GFR (African America >60 (>=60); Estimated GFR (Non-African Ame >60 (>=60)
== END 2023-09-11 11:44 | disposition home or self-care (01) ==
LOC: LAB 11:43
PROVIDERS: PCP Internal Medicine; Visit Provider Internal Medicine
DX: R14.0 Abdominal distension (gaseous) (principal); R10.13 Epigastric pain; R79.82 Elevated C-reactive protein (CRP); J90 Pleural effusion, not elsewhere classified; I31.39 Other pericardial effusion (noninflammatory); R63.0 Anorexia; K57.90 Diverticulosis of intestine, part unspecified, without perforation or abscess without bleeding
CPT/HCPCS: 36415; 74177; 82565; Q9967

== ENCOUNTER 2023-09-20 15:11 | Outpatient (OUT) | payer MEDICARE, SELFPAY ==
--- NOTE | 2023-09-20 15:53 | XR_ITS ---
The [address] [address] Patient Name: SAV RAYMUNDO MRN: [id number] date: 1950 Sex: M Assigned Patient Location: RAD Current Patient Location: RAD Accession/Order Number: [id number] Exam Date: 09/20/2023 15:42 Report Date: 09/20/2023 16:53 At the request of: TINA LANTIGUA Procedure: XR chest w decubitus EXAM: XR chest w decubitus, 09/20/2023. COMPARISON STUDY: CT of the abdomen and pelvis 09/11/2023. FINDINGS: AP, lateral, and bilateral decubitus images were obtained. HISTORY: Pleural effusion J90 XR/XR chest w decubitus IMPRESSION: 1. A moderate-sized right-sided pleural effusion. On the decubitus image this layers laterally and extends into the minor fissure. Adjacent compressive atelectatic changes involving right middle and lower lobes identified. 2. Cardiac silhouette is top normal. Mildly prominent left-sided epicardial fat pad is evident. No edema, failure, or pneumothorax. 3. Interval resolution of previous left pleural effusion. 4. No acute osseous abnormality suspected. Electronically authenticated by: CHET PEREYRA Date: 09/20/2023 16:53
== END 2023-09-20 15:12 | disposition home or self-care (01) ==
LOC: RAD 15:13
PROVIDERS: PCP Internal Medicine; Visit Provider Internal Medicine
DX: J90 Pleural effusion, not elsewhere classified (principal)
CPT/HCPCS: 71048

== ENCOUNTER 2023-10-01 11:26 | Outpatient (RCR) | payer MEDICARE, SELFPAY ==
[2023-10-01 11:40] VITALS: BP 151/109; PULSE 84; TEMP 36.6; O2SAT 99
--- NOTE | 2023-10-01 12:25 | XR_ITS ---
The [address] [address] Patient Name: SAV RAYMUNDO MRN: [id number] date: 1950 Sex: M Assigned Patient Location: ICU Current Patient Location: ICU Accession/Order Number: [id number] Exam Date: 10/01/2023 12:40 Report Date: 10/01/2023 12:55 At the request of: TINA LANTIGUA Procedure: XR chest 1V EXAM: XR chest 1V HISTORY: Right effusion - s/p thoracentesis (520mL out) COMPARISON: 09/04/2023 TECHNIQUE: AP portable FINDINGS: LUNGS: No significant pulmonary parenchymal abnormalities. VASCULATURE: No increased pulmonary vasculature. PLEURA: Decrease in tiny right pleural effusion CARDIAC: No cardiomegaly or cardiac silhouette abnormality. MEDIASTINUM: No visible mass or adenopathy. BONES: No fracture or visible bone lesion. OTHER: Negative. XR/XR chest 1V IMPRESSION: No pneumothorax Electronically authenticated by: REBECCA BARRY Date: 10/01/2023 12:55
[2023-10-01 13:00] VITALS: BP 135/90; PULSE 84; TEMP 36.6; O2SAT 98
--- NOTE | 2023-10-01 13:28 | PC.NURSE ---
Patient was present for bedside thoracentesis. Dr. Shahzad Gotti performed procedure. Patient tolerated well. No complaints of pain or difficulty breathing. CXR was read and reviewed with Dr. Gotti. Samples were sent to laboratory.
--- NOTE | 2023-10-01 18:39 | W.PM.PROCNOT ---
Date of procedure: 10/01/23 Pre-op diagnosis: Recurrent right effusion Post-op diagnosis: same as pre-op Procedure: Procedure: Diagnostic & therapeutic ultrasound-guided right-sided thoracentesis Consent: Informed consent was obtained after risks, benefits, and alternatives were discussed with the patient. Time out was initiated to confirm the correct patient, site, and procedure with all present voicing in the affirmative. History: Patient had right thoracentesis previously done on 09/04/2023 with ~600mL very dark fluid returned. Testing was non-diagnostic other than exudative fluid. Effusion returned on office ultrasound. Patient returns for diagnostic thoracentesis. Procedure: The patient was placed in the seated position in the hospital bed. Ultrasound was utilized to identify the hemidiaphragm and pleural fluid on the right. An appropriate drainage site was marked via , based on anatomical landmarks and the ultrasound findings. Chloraprep was used to cleanse the lower right hemithorax. Sterile drapes were applied. Lidocaine 1% 10mL was injected, first as superficial skin wheal, and then using aspiration technique, advanced over the superior aspect of the lower rib subcutaneously at the periosteum and then parietal pleura. Easy return of awilda pleural fluid was aspirated - this was much less dark compared to the prior thoracentesis. Next, a small incision was made to the anesthetized area with the blade provided in the prepackaged thoracentesis kit. Hemostasis was achieved. A rrnwmuap-fetk-lrtnsc apparatus was advanced as a unit over the superior aspect of the lower rib into the pleural space with great care to prevent further progression of the needle into the pleural cavity. The needle was then retracted completely and discarded. A vacuum collection system was attached to the catheter and pleural fluid was collected for analysis. A total of 520mL of pleural fluid was removed. The procedure was terminated due to lack of fluid return. The catheter was then removed during an expiratory breath-hold maneuver. The patient tolerated the procedure well. A post-procedural portable chest x-ray was ordered to assess adequacy of pleural fluid drainage and to evaluate for iatrogenic pneumothorax; none was seen and patient was discharged home. Specimens: -Pleural fluid sent for cytology, chemistries, and culture Surgeon: Calin Gotti Estimated blood loss (mL): 1 Condition: stable Disposition: same day
[2023-10-02 13:10] LABS: Glucose, Body Fluid 113 mg/dL (.); Protein, Body Fluid 3.7 g/dL (.)
[2023-10-02 14:10] LABS: Clarity, Serous Hazy (Clear); Color, Serous Yellow (.); Eosinophils, Serous 0 % (Not Estab.); Lymphocytes, Serous 39 % (Not Estab.); Macrophages, Serous 56 % (Not Estab.); Neut, Serous 5 % (0-24); Nucleated Cells, Serous 1307 /mm3 (0-499); RBC, Serous 7000 /uL (Not Estab.)
== END 2023-10-01 13:01 | disposition home or self-care (01) ==
LOC: ICU 11:26
PROVIDERS: PCP Internal Medicine; Visit Provider Internal Medicine
DX: J90 Pleural effusion, not elsewhere classified (principal)
CPT/HCPCS: 32554; 36415; 71045; 82945; 83986; 84157; 87070; 87102; 87116; 87205; 87206; 89050; 89051

== ENCOUNTER 2023-10-18 19:29 | Emergency (ER) | payer MEDICARE, SELFPAY ==
[2023-10-18] VITALS (36 sets, daily range): BP systolic 125–149; BP diastolic 59–92; PULSE 74–89; TEMP 36.6; O2SAT 92–98; BMI 29.8
--- OUTSIDE RECORDS SUMMARY | 2023-10-18 20:01 | XMS_ITS | CCD ---
Author Organization [facility] Care Team Providers Care Accounts Payable Supervisor Name Role Phone Ball, Dawit E Unavailable Ball, Dawit E Unavailable Karthik Calloway Unavailable Unavailable Primary Care Provider Unavailabl e Kelechi, Dawit E Primary Care Provider [phone] Kelechi, Dawit E Unavailable Karthik Calloway Unavailable [phone] Ball, Dawit E Primary Care Provider Ball, [...] Care Provider Ball DO, Dawit E Unavailable [phone] Karthik Calloway MD Unavailable Unavail able Kelechi, [...] Primary Care Unavailable NENA BYNUM Admitting Unavailable BYNUM, NENA D. Referring Unavailable BALL, DAWIT E Primary Care Unavailable MARGIE LI Attending Unavailab DAWIT Gonzalez Primary Care Unavailable MARGIE LI Attending Unavailab DAWIT Gonzalez Primary Care Unavailable MARGIE LI Referring Unavailab MARGIE Buckner Admitting Unavailab MARGIE Buckner Referring Unavailab le JEN, MARGIE FERNANDEZ Admitting Unavailab DAWIT Gonzalez Primary Care Unavailable MARGIE LI Referring Unavailab MARGIE Buckner Admitting Unavailab DAWIT Gonzalez Primary Care Unavailable Samsa, DO Calin P Attending Provider Samsa, Calin P Admitting Unavailable Samsa, Calin P Attending Unavailable Samsa, Calin P Admitting Unavailable Samsa, Calin P Attending Unavailable Samsa, Calin P Admitting Unavailable Samsa, Calin P Attending Unavailable Jere Sales Unavailable Dawit Lorenz DO Primary Care Provider Allergies Allergy Classification Reported Allergen(s) Allergy Type Date of Onset Reaction(s) Facility (16 sources) acetaminophen / oxyCODONE; Translations: [OXYCODONE-ACETAM INOPHEN] Propensity to adverse reactions to drug 6 Other (See Comments) [facility] Work Phone: (20 sources) traMADol; Translations: [TRAMADOL] Propensity to adverse reactions to drug 5 Shortness Of Breath, Mental Status Change [facility] Work Phone: (1 source) traMADol Drug Allergy 6 [facility] (1 source) traMADol Drug Allergy 4 [facility] Medications Current Medications Medication Drug Class(es) Dates Sig (Normalized) Sig (Original) AeroChamber Mini Chamber - (1 source) Start: 07-23-2023 AeroChamber Mini Chamber - Use w/ MDI inhaled every 6 hours as needed for 30 days Jul, Active [id number] 60 actuat albuterol 0.09 mg/actuat metered dose inhaler (1 source) beta2-Adrenergic Agonist Start: 07-23-2023 Albuterol Sulfate HFA 108 (90 Base) MCG/ACT 2 puffs Inhalation every 6 hours as needed for cough. Minimum bid for 30 days Jul, Active allopurinol 300 mg oral tablet (20 sources) Xanthine Oxidase Inhibitor Start: 10-21-2020 take 1 tablet by mouth once daily allopurinol (ZYLOPRIM) 300 mg tablet Take 300 mg by mouth once daily. 0 10/21/2020 Active amoxicillin 875 mg / clavulanate 125 mg oral tablet (4 sources) Penicillin-class Antibacterial Start: 08-19-2023 take 1 [...] Start: 024 Atorvastatin Active 0 .ROUTE .COMPLEX August 05, 2023 8:58pm TAKE 1 TABLET DAILY IN THE EVENING Start: 10-21-2020 End: 08-05-2023 take 1 tablet by mouth once daily atorvastatin (LIPITOR) 10 mg tablet Take 1 tablet by mouth once daily. 0 10/31/2020 Active benzonatate 100 mg oral capsule (8 sources) Non-narcotic Antitussive Start: 08-13-2023 take 100 mg by mouth three times daily Benzonatate Active 100 MG PO Three times daily August 13, 2023 1:00am Start: 07-07-2023 take 1 capsule by mo [facility] every eight hours Benzonatate 100 MG 1 [...] mg/ml / guaiFENesin 20 mg/ml oral solution (6 sources) Opioid Agonist Start: 08-13-19 take 1 [...] Active losartan potassium 25 mg oral tablet (11 sources) Angiotensin 2 Receptor Masha Start: 08-13-2023 [...] tablet by mouth every morning . Active [place] 3 (11 sources) [place] 3 Active [place]-3 Fatty Acids (4 sources) Start: 08-13-2023 take 500 mg by mouth once daily [place]-3 Fatty Acids Active 500 MG PO Daily August 13, 2023 1:00am prednisoLONE acetate 10 mg/ml ophthalmic suspension (6 sources) Corticosteroid Start: 10-01-2022 prednisoLONE acetate (PRED FORTE) 1 % ophthalmic suspension INSTILL 1 DROP INTO AFFECTED EYE INTO AFFECTED EYE 4 TIMES DAILY DIRECTED 0 10/01/2022 Active predniSONE 10 mg oral tablet (9 sources) Start: 08-13-2023 End: 08-13-2023 Prednisone Active 10 MG PO As Directed 18 9 August 13, 2023 5:25pm 1 tab tid w/ food x 3 days, then bid w/ food x 3 days, than qd w/ food x 3 days Start: 07-23-2023 predniSONE 20 MG 1 tablet Orally bid w/ food x 4 days then qd w/ food x 4 days for 8 days Jul, Active raNITIdine 300 mg oral tablet (8 sources) Histamine-2 Receptor Antagonist Start: 10-21-2020 End: 08-13-2023 take 1 tablet by mouth once daily raNITIdine HCl 300 mg tablet Take 1 tablet by mouth once daily. 0 10/21/2020 Active Ranitidine HCl A ctive tamsulosin hydrochloride 0.4 mg oral capsule (20 sources) alpha-Adrenergic Masha Start: 10-21-2020 take 1 capsule by mouth once daily tamsulosin (FLOMAX) 0.4 mg Take 1 capsule by mouth once daily. 0 10/21/2020 Active vit A-vit C-vit D-guvd-woqccr (EYE VITAMIN AND MINERALS) 7,160-113-100 gyck-jq-zina Tab (4 sources) take 1 tablet by mouth once daily in the morning vit A-vit C-vit J-xlvd-pwmstu (EYE VITAMIN AND MINERALS) 7,160-113-100 wssm-uv-wudg Tab Take 1 tablet by mouth every morning . 0 Active vit A-vit C-vit V-iqdu-ehvxfi 7,160-113-100 wybm-ki-vppe Tab (9 sources) take 1 tablet by mouth once daily in the morning vit A-vit C-vit Y-eykl-vjflam 7,160-113-100 gahb-oh-edgr Tab Take 1 tablet by mouth every morning . 0 Active Vitamin C Oral (1 source) take 1 tablet by mouth once daily in the morning ASCORBATE CALCIUM (VITAMIN C ORAL) Take 1 tablet by mouth every morning . Active Vit A 7,160 Unit-Vit C 113 Mg-Vit E 100 Hins-Rcay-Hlpsih Tablet (2 sources) take 1 tablet by mouth once daily in the morning vit A-vit C-vit H-bprk-ageysv (EYE VITAMIN AND MINERALS) 7,160-113-100 vccx-mc-nard Tab Take 1 tablet by mouth every [...] Not-Taking/PRN Start: 07-11-2022 take 1 capsule by [facility] twice daily as needed Cephalexin 500 MG 1 capsule Orally twice daily for 7 days Jun, Not-Taking/PRN doxycycline hyclate 100 mg oral capsule (11 sources) Tetracycline-class Drug Start: 06-24-2022 take 1 capsule by mouth every twelve hours Doxycycline Hyclate 100 MG 1 capsule Orally Twice a day for 7 days Jun, Not-Taking/PRN Fluticasone Propion-Salmeter ol (12 sources) Corticosteroid, beta2-Adrenergic Agonist Start: 08-08-2023 End: [...] empty stomach followed in 30 minutes by bkt # 0, 12/22/2021, No Refill. Active Oral daily on empty stomach followed in 30 minutes by bkt for 0 *Pick strength-form from [employer] for [employer]* Dec, Not-Taking/PRN Start: 09-28-2020 take 20 mg by mouth once daily Omeprazole Active 20 MG PO Daily October 21, 2020 12:00am sildenafil 100 mg oral tablet (11 sources) Phosphodiesterase 5 Inhibitor Start: 01-03-2022 Sildenafil Citrate 100MG Sildenafil Citrate 100MG, 1 (one) Tablet 1 PO PRN ED # 6, 01/03/2022, Ref. x5. Active Oral 1 PO PRN ED for 30 *Pick strength-form from [employer]* Dec, Not-Taking/PRN Problems Active Problems [...] reflux disease without esophagitis] Chronic Essential hypertension (18 sources) Essential hypertension; Translations: [Essential (primary) hypertension] Chronic Gastrointestinal hemorrhage (20 sources) Blood-tinged feces; Translations: [Melena] 05-29-2023 Episodic Heart valve disorders (4 sources) Cardiac murmur, unspecified; Translations: [Undiagnosed cardiac murmurs] 08-13-2023 Episodic Hemorrhoids (11 sources) Hemorrhoids; Translations: [Unspecified hemorrhoids] Episodic Hyperplasia of prostate (11 sources) Lower urinary tract symptoms due to benign prostatic hypertrophy; Translations: [Benign prostatic hyperplasia with lower urinary tract symptoms] Chronic Malaise and fatigue (1 source) Other fatigue Episodic Nausea and vomiting (8 sources) Nausea and vomiting; Translations: [Nausea with [...] 5 08-23-2014 Other aftercare (1 source) 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 Episodic Other circulatory disease (1 source) Elevated blood-pressure reading, without diagnosis of hypertension Episodic Other connective tissue disease (20 sources) History of total knee arthroplasty; Translations: [Presence of artificial knee joint, bilateral] Onset: 7 06-25-2016 Chronic Other connective tissue disease (1 source) Metatarsalgia of left foot; Translations: [Metatarsalgia, left foot] 10-08-2022 Episodic Other gastrointestinal disorders (14 sources) Dysphagia; Translations: [Dysphagia, unspecified] 05-29-2023 Episodic Other gastrointestinal disorders (1 source) Dysphagia, unspecified; Translations: [Dysphagia] Episodic Other lower respiratory disease (18 sources) Cough; Translations: [Cough, unspecified] Onset: 5 08-13-2023 Episodic Other lower respiratory disease (4 sources) Other forms of dyspnea; Translations: [Other [...] Translations: [ENC SCREEN MALIG NEOPLASM PROSTATE] Onset: Episodic [place]-; endo-; and myocarditis; cardiomyopathy (except that caused by tuberculosis or sexually transmitted disease) (4 sources) Pericardial effusion; Translations: [Pericardial effusion] 08-21-2023 [...] Test Name Value Interpretation Reference Range Facility [facility] BRYAN HARRIS ([id number]) 1950 M Date Time Provider Department 10/15/23 NO PCP REFPHY During your visit today, we recorded the following information about you: Sol Desouaz 10/15/2023 4:08 PM Signed Patient: Bryan Harris Date of : 1950 Patient phone number: [phone] Referring Provider for the encounter: Calin Gotti Requesting Provider: Dr Ronaldo Ramos Reason for requesting visit (RFV/signs and symptoms/diagnosis): pleural effusion recurment . Person calling: Via RP FAX Return call to: self Medical Records/Insurance Card scanned into [employer]: Comments: Allergies As of Date: 10/15/2023 Noted Allergy Reaction TRAMADOL 12/15/2020 1 - Mental Status Change Date Reviewed: 12/15/2020 Reviewed by: Ronnie Maier MD - Fully Assessed Reason for Visit: External Referrals/resources [909] Prescriptions as of 10/15/2023 - allopurinol (ZYLOPRIM) 300 mg tablet Take [...] once daily. Problem List As Of Date: 10/15/2023 (None) Encounter Status:Closed by SOL DESOUZA on 10/15/23 Normal [facility] Determination of appearance of body fluidon 10-01-2023 Appearance (Body fld) Hazy Clear [facility] Evaluation of color of body fluidon 10-01-2023 Color (Body fld) Yellow . [facility] Comment on above: Colorless to Pale Ye llow/Straw Xander 10-01-2023 L Specimen: [id number] Received: 10/02/23-1403 Status: MARITA Nolasco Num: [id number] Spec Type: Cytology Subm Dr: Calin Gotti, Tissues: A PLEURAL FLUID (RIGHT PLEURAL FLUID) Procedures: HE/2, Gross/Micro L4, Cyto Prepstain, PAPSTN Age/ Patient Sex Location Account Attending Physician Bryan Harris 73/M LABELL [id number] Calin Gotti DO SPEC NUM: [id number] RECD: 10/02/23 STATUS: MYLESOrlando NOLASCO NUM: [id number] HALLIE: 10/01/23-[address] [facility] [address]: Calin Gotti DO ENTERED: 10/02/[address] [facility] [address]: SPEC TYPE: Cytology DEPT: [facility] ENTERED BY: [id number] RECV BY: [id number] ORDERED: HE/2, Gross/Micro L4, Cyto Prepstain, PAPSTN ORDERED: HE/2, Gross/Micro L4, Cyto Prepstain, PAPSTN Pathological Diagnosis Right Pleural fluid: Negative for malignant cells. Clinical Information Right Effusion- S/P thoracentesis Gross Description Received fresh labeled with the patient's name, date of and Rt. pleural fluid per requisition is 450 ml red-brown cloudy mucinous unfixed fluid. 1 Thin Prep slides are prepared. 1 cell blocks are prepared. (WA/nh) Specimen: [id number] Received: 10/02/23 Status: MYLESOrlando Nolasco Num: [id number] Spec Type: Cytology Subm Dr: Calin Gotti DO Tissues: A PLEURAL FLUID (RIGHT PLEURAL FLUID) Procedures: HE/2, Gross/Micro L4, Cyto Prepstain, PAPSTN Patient: Bryan Harris [id number] (Continued) Signed (signature on file) Jaspal Olmedo MD 10/03/23 1259 Normal [facility] Laboratory - Microbiology an d Antimicrobial susceptibilityOrdered By: Dawit Lorenz on 10-01-2023 Microscopic observation Gram stain Nom (Unsp spec) [facility] Manual body fluid eosinophil s/100 leukocyteson 10-01-2023 Eosinophils/100 WBC Manual cnt (Body fld) 0 % Not Estab. [facility] Comment on above: Performed at: [address] [id number] Director: Norm Alcaraz PhD, Phone: [phone] Manual body fluid lymphocyte s/100 leukocyteson 10-01-2023 Lymphocytes/100 WBC Manual cnt (Body fld) 39 % Not Estab. [facility] Neutrophils/100 WBC Manual c nt (Body fld)on 10-01-2023 Neutrophils/100 WBC (Body fld) 5 % 0 [facility] No Panel InformationOrdered By: Dawit Lorenz on 10-01-2023 Acid Fast Smear [facility] AFB Specimen Processing [facility] No Panel Informationon 09-30 Body Fluid Comment TNP . [facility] Body Fluid Glucose 113 mg/dL . [facility] Comment on above: : BODY FLUID TYPE [...] Intervals for Adults and Children 2008. Ninth edition (V9.1) [employer], [facility]; [place]: December 2008. Body Fluid Lining Cell TNP . [facility] Body Fluid Macrophages (%) 56 % Not Estab. [facility] Body Fluid pH TNP . [facility] Comment on above: Test not performed. Test is not approved for the collectionsite indicated.This test was developed and its performance characteristicsdetermined by [employer] [facility]. It has not been cleared orapproved by the Food and Drug Administration.The reference interval(s) and other method performance specificationshave not been established for this body fluid. The test result must beintegrated into the clinical context for interpretation.Performed at: [address] [id number] Director: Yan Escamilla MD, Phone: [phone] Body Fluid RBC 7000 /uL Not Estab. [facility] Body Fluid Total Nucleated Cells 1307 /mm3 0-499 [facility] Comment on above: Pleural Fluid, with <1000 Nucleated cells/uL has beenassociated with transudates while >1000 uL may be seenin exudates. Body Fluid Total Protein 3.7 g/dL . [facility] Comment on above: : BODY FLUID [...] Adults and Children 2008. Ninth Edition (V9.1) [employer], [facility]; [place]: December 2008.Performed at: [facility] [id number] Director: Norm Alcaraz PhD, Phone: [phone] Fungal Smear Result [facility] Miscellaneous Test Comment See comment [facility] Comment on above: Specimen Source: PL - Pleural Fluid - Pleural Fl - 401.000 Estimated glomerular filtrat ion rate (GFR) non- Americanon 09-11-2023 GFR/1.73 sq M.predicted among non-blacks MDRD (S/P/Bld) [Vol rate/Area] mL/min/{1.73_m2} >=60 [facility] Laboratory - Chemistry and C hemistry - challengeon 09-11-2023 Creatinine [Mass/Vol] 1.02 mg/dL 0.70-1.30 [facility] GFR/1.73 sq M.predicted MDRD (S/P/Bld) [Vol rate/Area] mL/min/{1.73_m2} >=60 [facility] Body fluid differential cell countOrdered By: Calin Gotti on 09-04-2023 Differential panel (Body fld) 50 % [facility] Comment on above: The reference interv al and other method performance specifications have not been established for this body fluid. The test result must be integrated into the clinical context for interpretation. Cell Count/Diff, Fluidon Appearance, Fluid Hazy Normal [facility] Comment on above: Order Comment: Body Fluid Source: Pleural Fluid Body Fluid Site: PLEURAL FLUID Result Comment: The reference interval and other method performance specifications have not been established for this body fluid. The test result must be integrated into the clinical context for interpretation. Performed By: #### F LCCDIFF #### [address] Color, Fluid Red-Brown Normal [facility] Comment on above: Order Comment: Body Fluid Source: Pleural Fluid Body Fluid Site: PLEURAL FLUID Result Comment: The reference interval and other method performance specifications have not been established for this body fluid. The test result must be integrated into the clinical context for interpretation. Performed By: #### F LCCDIFF #### [address] Color, Fluid Supernatant Red-Brown Normal [facility] Comment on above: Order Comment: Body Fluid Source: Pleural Fluid Body Fluid Site: PLEURAL FLUID Result Comment: The reference interval and other method performance specifications have not been established for this body fluid. The test result must be integrated into the clinical context for interpretation. Performed By: #### F LCCDIFF #### [address] Eosinophils, Fluid 0 /100{WBC} Normal 0-3 [facility] Comment on above: Order Comment: Body Fluid Source: Pleural Fluid Body Fluid Site: PLEURAL FLUID Result Comment: PERF ORMED BY: [place] [address] PATHOLOGIST MECHANICAL PRESS OPERATOR KATHY HENDRICKSON M.D. Performed By: #### F LCCDIFF #### [address] Lymphocytes, Fluid 38 % Normal [facility] Comment on above: Order Comment: Body Fluid Source: Pleural Fluid Body Fluid Site: PLEURAL FLUID Result Comment: The reference interval and other method performance specifications have not been established for this body fluid. The test result must be integrated into the clinical context for interpretation. Performed By: #### F LCCDIFF #### [facility] [address] [id number] [facility] Monocytes/Macrophages, Fluid 50 % Normal [facility] Comment on above: Order Comment: Body Fluid Source: Pleural Fluid Body Fluid Site: PLEURAL FLUID Result Comment: The reference interval and other method performance specifications have not been established for this body fluid. The test result must be integrated into the clinical context for interpretation. Performed By: #### F LCCDIFF #### [facility] [address] Neutrophil, Fluid 12 % Normal [facility] Comment on above: Order Comment: Body Fluid Source: Pleural Fluid Body Fluid Site: PLEURAL FLUID Result Comment: The reference interval and other method performance specifications have not been established for this body fluid. The test result must be integrated into the clinical context for interpretation. Performed By: #### F LCCDIFF #### [facility] [address] RBC, Fluid [address] /uL Normal [facility] Comment on above: Order Comment: Body Fluid Source: Pleural Fluid Body Fluid Site: PLEURAL FLUID Result Comment: The reference interval and other method performance specifications have not been established for this body fluid. The test result must be integrated into the clinical context for interpretation. Performed By: #### F LCCDIFF #### [facility] [address] [id number] [facility] TNC, Body Fluid 999 /uL Normal [facility] Comment on above: Order Comment: Body Fluid Source: Pleural Fluid Body Fluid Site: PLEURAL FLUID Result Comment: The reference interval and other method performance specifications have not been established for this body fluid. The test result must be integrated into the clinical context for interpretation. Performed By: #### F LCCDIFF #### [facility] [address] [place] [address] Color of Spun Body fluidOrde red By: Calin Gotti on 09-04-2023 Color (Spun body fld) Red-brown [facility] Comment on above: The reference interv al and other method performance specifications have not been established for this body fluid. The test result must be integrated into the clinical context for interpretation. Determination of appearance of body fluidOrdered By: Calin Gotti on 09-04-2023 Appearance (Body fld) Hazy [facility] Comment on above: The reference interv al and other method performance specifications have not been established for this body fluid. The test result must be integrated into the clinical context for interpretation. Evaluation of color of body fluidOrdered By: Calin Gotti on 09-04-2023 Color (Body fld) Red-brown [facility] Comment on above: The reference interv al and other method performance specifications have not been established for this body fluid. The test result must be integrated into the clinical context for interpretation. Xander 09-04-2023 L Specimen: [id number] Received: 09/06/23 Status: MARITA Nolasco Num: [id number] Spec Type: Cytology Subm Dr: Calin Gotti DO Tissues: A PLEURAL FLUID (PLEUR) Procedures: HE/2, Gross/Micro L4, AE1-AE3, CALRETININ, CK20, CK 7, TTF1, Cyto Prepstain, NKX3.1, MOC31, SOX-10, PAPSTN Age/ Patient Sex Location Account Attending Physician Bryan Harris 73/M LABELL [id number] Calin Gotti DO SPEC NUM: [id number] RECD: 09/06/23 STATUS: MARITA NOLASCO NUM: [id number] HALLIE: 09/04/[address]: Calin Gotti DO ENTERED: 09/06/[address] [facility] [address]: SPEC TYPE: Cytology DEPT: CNG ENTERED BY: [id number] RECV BY: [id number] ORDERED: HE/2, Gross/Micro L4, AE1-AE3, CALRETININ, CK20, CK 7, TTF1, Cyto Prepstain, NKX3.1, MOC31, SOX-10, PAPSTN ORDERED: HE/2, Gross/Micro L4, AE1-AE3, CALRETININ, CK20, CK 7, TTF1, Cyto Prepstain, NKX3.1, MOC31, SOX-10, PAPSTN Pathological Diagnosis Rare atypical cells noted. Confirmed with pankeratin, ck7, ck20, NKX, SOX10, TTF1 and MOC31 immunostain. Clinical Information Pleural Effusiion Gross Description Received fresh labeled with the patient's name, date of and pleural fluid per requisition is 450 ml red/opaque cloudy unfixed fluid . 1 touch preps are prepared. 1 cell blocks are prepared. (ME/nh) Specimen: [id number] Received: 09/06/23 Status: MARITA Nolasco Num: [id number] Spec Type: Cytology Subm Dr: Calin Gotti DO Tissues: A PLEURAL FLUID (PLEUR) Procedures: HE/2, Gross/Micro L4, AE1-AE3, CALRETININ, CK20, CK 7, TTF1, Cyto Prepstain, NKX3.1, MOC31, SOX-10, PAPSTN Patient: Bryan Harris [id number] (Continued) Signed (signature on file) Jaspal Olmedo MD 09/12/23 1632 Normal [facility] Laboratory - Chemistry and C hemistry - challengeon 09-04-2023 Cholesterol [Mass/Vol] 59 mg/dL <=200 Fi [facility] Laboratory - Microbiology an d Antimicrobial susceptibilityOrdered By: Dawit Lorezn on 09-04-2023 Microscopic observation Gram stain Nom (Unsp spec) [facility] Manual body fluid eosinophil s/100 leukocytesOrdered By: Calin Gotti on 09-04-2023 Eosinophils/100 WBC Manual cnt (Body fld) 0 /100{WBC} 0-3 [facility] Manual body fluid erythrocyt es count (number/volume)Ordered By: Calin Gotti on 09-04-2023 RBC Manual cnt (Body fld) [#/Vol] 89790 /uL [facility] Comment on above: The reference interv al and other method performance specifications have not been established for this body fluid. The test result must be integrated into the clinical context for interpretation. Manual body fluid lymphocyte s/100 leukocytesOrdered By: Calin Gotti on 09-04-2023 Lymphocytes/100 WBC Manual cnt (Body fld) 38 % [facility] Comment on above: The reference interv al and other method performance specifications have not been established for this body fluid. The test result must be integrated into the clinical context for interpretation. Neutrophils/100 WBC Manual c nt (Body fld)Ordered By: Calin Gotti on 09-04-2023 Neutrophils/100 WBC (Body fld) 12 % [facility] Comment on above: The reference interv al and other method performance specifications have not been established for this body fluid. The test result must be integrated into the clinical context for interpretation. No Panel InformationOrdered By: Dawit Lorenz on 09-04-2023 Acid Fast Smear [facility] AF[employer] Specimen Processing F [facility] No Panel Informationon 09-03 Body Fluid Amylase 20 U/L . [facility] Comment on above: : BODY FLUID TYPE : AMYLASE : : : : : Lymph : 50 - 83 : : : : : Peritoneal : : : Fluid : 88 - 109 : : : : : Saliva : : : (Mixed Glands) : [id number] - [id number] : : : : Adeel Das V. Reference Intervals for Adults and Children 2007. Ninth Edition (V9.1) [facility] [place]; Edwards: December 2008.Performed at: CB - [facility] [id number] [place], [place] [id number] Director: Norm Alcaraz PhD, Phone: [phone] Body Fluid Glucose 119 mg/dL . [facility] Comment on above: : BODY FLUID [...] Children 2007. Ninth edition (V9.1) [employer] [facility]; Edwards: December 2008. Body Fluid pH 8.2 Not Estab. [facility] Comment on above: This test was develo ped and its performance characteristicsdetermined by [facility]. It has not been cleared orapproved by the Food and Drug Administration.The reference interval(s) and other method performance specificationshave not been established for this body fluid. The test result must beintegrated into the clinical context for interpretation.Performed at: [address] [id number] [place] [id number] Director: Yan Escamilla MD, Phone: [phone] Body Fluid Total Protein 3.7 g/dL . [facility] Comment on above: : BODY FLUID [...] Adults and Children 2007. Ninth Edition (V9.1) [employer], [facility]; Edwards: December 2008. Body Fluid Triglycerides 21 mg/dL Not Estab. [facility] Comment on above: The reference interv al(s) and other method performance specificationshave not been established for this body fluid. The test result must beintegrated into the clinical context for interpretation.Performed at: [address] [place], [place] [id number] Director: Norm Alcaraz PhD, Phone: [phone] Fungal Smear Result [facility] Miscellaneous Test Comment See comment [facility] Comment on above: Specimen Source: PL - Pleural Fluid - Pleural Fl - 401.000 No Panel InformationOrdered By: Calin Gotti on 09-04-2023 Body Fluid Total Nucleated Cells 999 /uL [facility] Comment on above: The reference interv al and other method performance specifications have not been established for this body fluid. The test result must be integrated into the clinical context for interpretation. Serum or plasma free cefurox christine measurement (mass/volume)on 09-04-2023 Cefuroxime free [Mass/Vol] TNP . [facility] Comment on above: Test not performed. No serum gel received.Contacted Shelby at your facility 09/06/2023Test not performed. No serum gel received.Contacted Shreya at your facility 09/06/2023--- 09/06/23 1311 ---GREY Direct previously reported as: Test not performedTest not performed. No serum gel received.Contacted Shelby at your facility 09/06/2023 Serum or plasma rheumatoid f actor measurement (units/volume)on 09-04-2023 Rheumatoid factor Qn TNP [IU]/mL . [facility] Comment on above: Test not performed. No serum gel received.Contacted Shelby at your facility 09/06/2023Test not performed. No serum gel received.Contacted Shreya at your facility 09/06/2023--- 09/06/23 1311 ---RF previously reported as: Test not performed IU/mLTest not performed. No serum gel received.Contacted Shelby at your facility 09/06/2023 Adenosine monophosphate.cycl ic [Moles/Vol]on 08-28-2023 Cyclic Citrullinated Peptid IgG/IgA 1 units 0-19 [facility] Comment on above: Negative <20 Weak po sitive 20 - 39 Moderate positive 40 - 59 Strong positive >59Performed at: [facility] [place], [place] [id number] Director: Norm Alcaraz PhD, Phone: [phone] Negative <20 Weak po sitive 20 - 39 Moderate positive 40 - 59 Strong positive >59Performed at: [address] [id number] Director: Norm Alcaraz PhD, Phone: [phone] Atypical perinuclear antineu trophil cytoplasmic antibodies measurementon 08-28-2023 Neutrophil cytoplasmic Ab.perinuclear.atypical IF (S) [Titer] <1:20 titer Neg:<1:20 [facility] Comment on above: The atypical pANCA p attern has been observed in asignificant percentage of patients with ulcerative colitis,primary sclerosing cholangitis and autoimmune hepatitis.Performed at: [facility] [id number] Director: Yan Escamilla MD, Phone: [phone] at: [address] [id number] Director: Norm Alcaraz PhD, Phone: [phone] Histoplasma capsulatum antib olga detection by complement fixationon 08-28-2023 H. capsulatum Ab CF Ql (S) Negative Neg:<1:2 [facility] Comment on above: Performed at: - [address] [id number] Director: Yan Escamilla MD, Phone: [phone] Myeloperoxidase Ab [Units/vo lume] in Serum by Immunoassayon 08-28-2023 Myeloperoxidase Ab IA Qn (S) <0.2 units 0.0-0.9 [facility] No Panel Informationon 08-27 Miscellaneous Test COMMENT . [facility] Comment on above: Test Ordered: [id number] Coxsackie A IgG/IgM AntibodyCoxsackie A7 IgG 1:100 [...] Negative titer BN Reference Range: Neg:<1:10Performed at: [facility] [address] [id number] Director: Yan Escamilla MD, Phone: [phone] at: [address] [id number] Director: Norm Alcaraz PhD, Phone: [phone] Perinuclear ANCA (p-ANCA) Antibody <1:20 titer Neg:<1:20 [facility] Comment on above: The presence of posi tive fluorescence exhibiting P-ANCA orC-ANCA patterns alone is not specific for the diagnosis ofWegener's Granulomatosis (WG) or microscopic polyangiitis.Decisions about treatment should not be based solely onANCA IFA results. The International ANCA Group Consensusrecommends follow up testing of positive sera with both MT-3 and MPO-ANCA enzyme immunoassays. As many as 5% serumsamples are positive only by EIA. Ref. AM J Clin [id number];111:507-513. Histoplasma Galactomannan Antigen Negative <0.5 ng/mL [facility] Comment on above: This test was develo ped and its performance characteristicsdetermined by [facility]. It has not been cleared orapproved by the Food and Drug Administration.Performed at: [facility] [employer] [place] [address], [place] [id number] Director: Janine Goodman MD, Phone: [phone] Proteinase 3 Ab [Units/volum e] in Serum by Immunoassayon 08-28-2023 Proteinase 3 Ab IA Qn (S) <0.2 units 0.0-0.9 [facility] SCL-70 extractable nuclear A b IA Qn (S)on 08-28-2023 Scl-70 (Scleroderma) Antibody <0.2 AI 0.0-0.9 [facility] Comment on above: Performed at: [facility] [address] [id number] Director: Norm Alcaraz PhD, Phone: [phone] Performed at: [facility] [address] [id number] Director: Norm Alcaraz PhD, Phone: [phone] Serum angiotensin converting enzyme (NANDO) measurementon 08-28-2023 Angiotensin converting enzyme [Catalytic activity/Vol] 34 U/L 1482 [facility] Comment on above: Performed at: [facility] [address] [id number] Director: Norm Alcaraz PhD, Phone: [phone] Serum classic neutrophil cyt oplasmic antibody titer by immunofluorescenceon 08-28-2023 Neutrophil cytoplasmic Ab.classic IF (S) [Titer] <1:20 titer Neg:<1:20 [facility] Serum or plasma rheumatoid f actor measurement (units/volume)on 08-28-2023 Rheumatoid factor Qn [IU]/mL <14.0 [facility] Comment on above: Performed at: [facility] [address] [id number] Director: Norm Alcaraz PhD, Phone: [phone] Laboratory - Chemistry and C hemistry - challengeon 08-21-2023 Cobalamin (Vitamin B12) [Mass/Vol] 3286.0 pg/mL 193.0-986. 0 [facility] TSH Qn 1.287 m[IU]/L 0.358-3.74 0 [facility] Laboratory - Hematology and Cell countson 08-21-2023 ESR (Bld) [Velocity] 126 mm/h <=20 [facility] No Panel Informationon 08-20 C-Reactive Protein, Quantitative 4.28 mg/dL <=0.50 [facility] Folate 21.60 ng/mL 8.60-58.90 [facility] Serum or plasma free cefurox christine measurement (mass/volume)on 08-21-2023 Cefuroxime free [Mass/Vol] Negative Negative [facility] Comment on above: Performed at: [facility] - [facility] [id number] [place], [place] [id number] Director: Norm Alcaraz PhD, Phone: [phone] Basophils Auto (Bld) [#/Vol] on 08-15-2023 Basophils (Bld) [#/Vol] 0.0 10 3/uL 0.0-0.1 [facility] Basophils/100 WBC Auto (Bld) on 08-15-2023 Basophils/100 WBC (Bld) 0.2 % 0.2-2.0 [facility] Eosinophils/100 WBC Auto (Bl d)on 08-15-2023 Eosinophils/100 WBC (Bld) 0.0 % 0.9-7.0 [facility] Erythrocyte distribution wid th Auto (RBC) [Ratio]on 08-15-2023 Erythrocyte distribution width (RBC) [Ratio] 12.5 % 11.0-15.0 [facility] Estimated glomerular filtrat ion rate (GFR) non- Americanon 08-15-2023 GFR/1.73 sq M.predicted among non-blacks MDRD (S/P/Bld) [Vol rate/Area] mL/min/{1.73_m2} >=60 [facility] Globulin Calc (S) [Mass/Vol] on 08-15-2023 Globulin (S) [Mass/Vol] 4.7 g/dL [facility] Hematocrit Auto (Bld) [Volum e fraction]on 08-15-2023 Hematocrit (Bld) [Volume fraction] 34.7 % 42.0-54.0 [facility] Hemoglobin [Mass/volume] in Bloodon 08-15-2023 Hemoglobin (Bld) [Mass/Vol] 11.2 g/dL 14.0-18.0 [facility] Laboratory - Chemistry and C hemistry - challengeon 08-15-2023 Albumin [Mass/Vol] 3.2 g/dL 3.4-5.[address] [facility] ALP [Catalytic activity/Vol] 66 U/L 46-116 [facility] ALT [Catalytic activity/Vol] 33 U/L 16-63 [facility] AST [Catalytic activity/Vol] 24 U/L 15-37 [facility] Bilirubin [Mass/Vol] 0.6 mg/dL 0.2-1.0 [facility] Calcium [Mass/Vol] 8.9 mg/dL 8.5-10.[address] [facility] Chloride [Moles/Vol] 101 mmol/L 98-107 [facility] CO2 [Moles/Vol] 27.4 mmol/L 21.0-32.0 [facility] Creatinine [Mass/Vol] 1.06 mg/dL 0.70-1.30 [facility] GFR/1.73 sq M.predicted MDRD (S/P/Bld) [Vol rate/Area] mL/min/{1.73_m2} >=60 [facility] Glucose [Mass/Vol] 115 mg/dL 74-[address] [facility] Natriuretic peptide B (Bld) [Mass/Vol] 397.0 pg/mL <=900.0 [facility] Potassium [Moles/Vol] 3.8 mmol/L 3.5-5.1 [facility] Protein [Mass/Vol] 7.9 g/dL 6.4-8.[address] [facility] Sodium [Moles/Vol] 138 mmol/L 136-[address] [facility] Urea nitrogen [Mass/Vol] 15.0 mg/dL 7.0-18.0 [facility] Urea nitrogen/Creatinine [Mass ratio] 14.2 mg/mg [facility] Laboratory - Hematology and Cell countson 08-15-2023 ESR (Bld) [Velocity] mm/h <=20 [facility] Immature granulocytes/100 WBC (Bld) 0.4 % 0.0-0.5 [facility] Laboratory - Microbiology an d Antimicrobial susceptibilityon 08-15-2023 SARS-CoV-2 (COVID-19) RNA BRYN+probe Ql (Unsp spec) Negative NEGATIVE [facility] Comment on above: This test has not be en FDA cleared or approved, but has beenauthorized by the FDA under an Emergency Use Authorization(EUA) for use by authorized laboratories certified underCLIA that meet the requirements to perform moderate [...] Auto (Bld) [#/Vol] 9.9 10 3/uL 4.0-11.0 [facility] Lymphocytes Auto (Bld) [#/Vo l]on 08-15-2023 Lymphocytes (Bld) [#/Vol] 0.8 10 3/uL 1.2-3.8 [facility] Lymphocytes/100 WBC Auto (Bl d)on 08-15-2023 Lymphocytes/100 WBC (Bld) 8.0 % 20.5-60.0 [facility] MCH Auto (RBC) [Entitic mass ]on 08-15-2023 MCH (RBC) [Entitic mass] 32.3 pg 25.9-34.0 [facility] MCHC Auto (RBC) [Mass/Vol]on 08-15-2023 MCHC (RBC) [Mass/Vol] 32.3 g/dL 29.9-35.2 [facility] MCV Auto (RBC) [Entitic vol] on 08-15-2023 MCV (RBC) [Entitic vol] 100.0 fL 80.0-94.0 [facility] Monocytes Auto (Bld) [#/Vol] on 08-15-2023 Monocytes (Bld) [#/Vol] 1.0 10 3/uL 0.3-0.8 [facility] Monocytes/100 WBC Auto (Bld) on 08-15-2023 Monocytes/100 WBC (Bld) 9.9 % 1.7-12.0 [facility] Neutrophils Auto (Bld) [#/Vo l]on 08-15-2023 Neutrophils (Bld) [#/Vol] 8.1 10 3/uL 1.4-6.5 [facility] Neutrophils/100 WBC Auto (Bl d)on 08-15-2023 Neutrophils/100 WBC (Bld) 81.5 % 43.0-75.0 [facility] No Panel Informationon C-Reactive Protein, Quantitative 6.36 mg/dL <=0.50 [facility] Eosinophils # (Auto) 0.0 10 3/uL 0.0-0.7 [facility] Immature Granulocyte # (Auto) 0.04 10 3/uL 0.00-0.03 [facility] Troponin I High Sensitivity 11.9 pg/mL 4.0-76.1 [facility] Comment on above: CUT-OFF POINTS HAVE BEEN ESTABLISHED BASED ON THE FOURTHIVERSAL DEFINITION OF MYOCARDIAL INFARCTION. THE UPPERREFERENCE LIMIT (URL) OF TROPONIN, DEFINED THE 99THPERCENTILE OF cTnI DISTRIBUTION IN A REFERENCE POPULATION,HAS BEEN CONFIRMED THE DECISION THRESHOLD FOR MIDIAGNOSIS.99TH PERCENTILE = 76.2 PG/MLNOTE: HIGH-SENSITIVITY TROPONIN ASSAY IS NOT INTENDED TO BEUSED IN ISOLATION BUT SHOULD BE INTERPRETED IN CONJUNCTIONWITH OTHER DIAGNOSTIC AND CLINICAL INFORMATION. Bedside Influenza Type A Antigen Negative [facility] Comment on above: Negative for Flu A p rotein antigen. Infection due to Flu Acannot be ruled out. Flu A antigen in the sample may bebelow the detection limit of the test. Bedside Influenza Type B Antigen Negative [facility] Comment on above: Negative for Flu B p rotein antigen. Infection due to Flu Bcannot be ruled out. Flu B antigen in the sample may bebelow the detection limit of the test. Platelet mean volume Auto (B ld) [Entitic vol]on 08-15-2023 Platelet mean volume (Bld) [Entitic vol] 9.5 fL 9.5-13.5 [facility] Platelets Auto (Bld) [#/Vol] on 08-15-2023 Platelets (Bld) [#/Vol] 288 10 3/uL 150-450 [facility] RBC Auto (Bld) [#/Vol]on RBC (Bld) [#/Vol] 3.47 10 6/uL 4.70-6.10 [facility] Serum or plasma albumin/glob ulin mass ratioon 08-15-2023 Albumin/Globulin [Mass ratio] 0.7 {ratio} [facility] Serum or plasma anion gap de terminationon 08-15-2023 Anion gap [Moles/Vol] 13.4 mmol/L [facility] XR KNEE LEFT 4+ VIEWS (SPECI FY VIEWS IN COMMENTS)on 01-16-2023 XR KNEE LEFT 4+ VIEWS (SPECIFY VIEWS IN COMMENTS) X-rays of the left knee from [facility] taken today are reviewed. My personal [...] on SatJan 16, 2023 10:52:01 AM EDT Normal [facility] Comment on above: Order Comment: Injur [...] on SatAug 28, 2022 1:49:21 PM EDT [facility] Comment on above: Order Comment: Injur [...] on SatAug 28, 2022 1:50:20 PM EDT [facility] Comment on above: Order Comment: Injur y/Trauma or Illness?:Illness/Other How long have you had these symptoms (acute/chronic)?:Unknown Reason for exam?:n/a History of cancer?:n/a Surgeries, chemotherapy, or radiation?:n/a Type of Exam?:Unknown Additional signs and symptoms?:n/a XR FOOT LEFT 2 VIEWSon 08-28 XR FOOT LEFT 2 VIEWS Weightbearing radio graphs of the left foot and ankle were [...] on SatAug 28, 2022 1:49:28 PM EDT Normal [facility] Comment on above: Order Comment: Injur y/Trauma or Illness?:Illness/Other How long have you had these symptoms (acute/chronic)?:Unknown Reason for exam?:n/a History of cancer?:n/a Surgeries, chemotherapy, or radiation?:n/a Type of Exam?:Unknown Additional signs and symptoms?:n/a XR FOOT RIGHT 2 VIEWSon 03 XR FOOT RIGHT 2 VIEWS Weightbearing radi ographs of the right foot and ankle were [...] SatAug 28, 2022 1:50:37 PM EDT Normal [facility] Comment on above: Order Comment: Injur y/Trauma or Illness?:Illness/Other How long have you had these symptoms (acute/chronic)?:Unknown Reason for exam?:n/a History of cancer?:n/a Surgeries, chemotherapy, or radiation?:n/a Type of Exam?:Unknown Additional signs and symptoms?:n/a CBC AUTO DIFFon 03-19-2022 BASO # 0.1 103/ul Normal 0.0-0.1 [facility] Comment on above: Performed By: #### D ATCBC #### [facility] [address] [address] [address] Joni Sanders Basophils/100 WBC (Bld) 1.0 % Normal 0.2-2.0 [facility] Comment on above: Performed By: #### D ATCBC #### [facility] [address] [address] [address] Joni Sanders EO # 0.1 103/ul Normal 0.0-0.7 [facility] Comment on above: Performed By: #### D ATCBC #### [facility] [address] [place] [address] Dr. Joni Sanders Eosinophils/100 WBC (Bld) 2.0 % Normal 0.9-7.0 [facility] Comment on above: Performed By: #### D ATCBC #### [facility] [address] [place] [address] Dr. Joni Sanedrs Erythrocyte distribution width (RBC) [Ratio] 12.4 % Normal 11.0-15.0 [facility] Comment on above: Performed By: #### D ATCBC #### [facility] [address] [place] [address] Dr. Joni Sanders Hematocrit (Bld) [Volume fraction] 43.7 % Normal 42.0-54.0 [facility] Comment on above: Performed By: #### D ATCBC #### [facility] [address] [place] [address] Dr. Joni Sanders Hemoglobin (Bld) [Mass/Vol] 14.6 g/dL Normal 14.0-18.0 [facility] Comment on above: Performed By: #### D ATCBC #### [facility] [address] [place] [address] Dr. Joni Sanders IG # 0.02 10e3/ul Normal 0.00-0.03 [facility] Comment on above: Performed By: #### D ATCBC #### [facility] [address] [place] [address] Dr. Joni Sanders IG % 0.3 % Normal 0.0-0.5 [facility] Comment on above: Performed By: #### D ATCBC #### [facility] [address] [place] [address] Dr. Joni Sanders LYMPH # 2.0 103/ul Normal 1.2-3.8 [facility] Comment on above: Performed By: #### D ATCBC #### [facility] [address] [place] [address] Dr. Joni Sanders Lymphocytes/100 WBC (Bld) 33.3 % Normal 20.5-60.0 [facility] Comment on above: Performed By: #### D ATCBC #### [facility] [address] [place] [address] Dr. Joni Sanders MCH (RBC) [Entitic mass] 32.6 pg Normal 25.9-34.0 [facility] Comment on above: Performed By: #### D ATCBC #### [facility] [address] [place] [address] Dr. Joni Sanders MCHC (RBC) [Mass/Vol] 33.4 g/dL Normal 29.9-35.2 [facility] Comment on above: Performed By: #### D ATCBC #### [facility] [address] [place] [address] Dr. Joni Sanders MCV (RBC) [Entitic vol] 97.5 fL Critically high 80.0-94 .0 [facility] Comment on above: Performed By: #### D ATCBC #### [facility] [address] [place] [address] Dr. Joni Sanders MONO # 0.6 103/ul Normal 0.3-0.8 [facility] Comment on above: Performed By: #### D ATCBC #### [facility] [address] [place] [address] Dr. Joni Sanders Monocytes/100 WBC (Bld) 9.8 % Normal 1.7-12.0 [facility] Comment on above: Performed By: #### D ATCBC #### [facility] [address] [place] [address] Dr. Joni Sanders NEUT # 3.2 103/ul Normal 1.4-6.5 [facility] Comment on above: Performed By: #### D ATCBC #### [facility] [address] [place] [address] Dr. Joni Sanders Neutrophils/100 WBC (Bld) 53.6 % Normal 43.0-75.0 [facility] Comment on above: Performed By: #### D ATCBC #### [facility] [address] [place] [address] Dr. Joni Sanders Platelet mean volume (Bld) [Entitic vol] 9.9 fL Normal 9.5-13.5 [facility] Comment on above: Performed By: #### D ATCBC #### [facility] [address] [place] [address] Dr. Joni Sanders PLT 239 103/ul Normal 150-450 [facility] Comment on above: Performed By: #### D ATCBC #### [facility] [address] [place] [address] Dr. Joni Sanders RBC 4.48 106/ul Critically low 4.70-6.10 [facility] Comment on above: Performed By: #### D ATCBC #### [facility] [address] [place] [address] Dr. Joni Sanders WBC 5.9 103/ul Normal 4.0-11.0 [facility] Comment on above: Performed By: #### D ATCBC #### [facility] [address] [place] [address] Dr. Joni Sanders SILVIA- BMP WITH LIPIDon 2021 Anion gap [Moles/Vol] 12.7 mmol/L Normal [facility] Comment on above: Performed By: #### D ATBMP #### [facility] [address] [place] [address] Dr. Joni Sanders Calcium [Mass/Vol] 9.0 mg/dL Normal 8.5-10.1 [facility] Comment on above: Performed By: #### D ATBMP #### [facility] [address] [place] [address] Dr. Joni Sanders Chloride [Moles/Vol] 104 mmol/L Normal 98-107 [facility] Comment on above: Performed By: #### D ATBMP #### [facility] [address] [place] [address] Dr. Joni Sanders Cholesterol [Mass/Vol] 188 mg/dL Normal <=200 [facility] Comment on above: Performed By: #### D ATBMP #### [facility] [address] [place] [address] Dr. Joni Sanders Cholesterol in HDL [Mass/Vol] 45 mg/dL Normal 40-60 [facility] Comment on above: Performed By: #### D ATBMP #### [facility] [address] [address] [address] Joni Sanders Cholesterol in LDL [Mass/Vol] 102.2 mg/dL Normal [facility] Comment on above: Performed By: #### D ATBMP #### [facility] [address] [address] [address] Joni Sanders CO2 [Moles/Vol] 27.7 mmol/L Normal 21.0-32.0 [facility] Comment on above: Performed By: #### D ATBMP #### [facility] [address] [place] [address] Dr. Joni Sanders Creatinine [Mass/Vol] 1.00 mg/dL Normal 0.70-1.30 [facility] Comment on above: Performed By: #### D ATBMP #### [facility] [address] [address] [address] Joni Sanders EGFR-AF KYRGYZ >60 Normal >=60 [facility] Comment on above: Performed By: #### D ATBMP #### [facility] [address] [place] [address] Dr. Joni Sanders EGFR-NON AF KYRGYZ >60 Normal >=60 [facility] Comment on above: Performed By: #### D ATBMP #### [facility] [address] [address] [address] Joni Sanders Glucose [Mass/Vol] 107 mg/dL Critically high 74-106 T [facility] Comment on above: Performed By: #### D ATBMP #### [facility] [address] [address] [address] Joni Sanders HDL NORMAL > or = 60 mg/dl - LO W CARDIOVASCULAR RISK <40 mg/dl - HIGH CARDIOVASCULAR RISK Normal [facility] Comment on above: Performed By: #### D ATBMP #### [facility] [address] [address] [address] Joni Sanders LDL CALC NORMAL SEE BELOW Normal [facility] Comment on above: Result Comment: <100 mg/dl OPTIMAL 100 - 129 mg/dl NEAR OR ABOVE OPTIMAL 130 - 159 mg/dl BORDERLINE HIGH 160 - 189 mg/dl HIGH >190 mg/dl VERY HIGH Performed By: #### D ATBMP #### [facility] [address] [address] [address] Joni Sanders Potassium [Moles/Vol] 4.4 mmol/L Normal 3.5-5.1 [facility] Comment on above: Performed By: #### D ATBMP #### [facility] [address] [address] [address] Joni Sanders Sodium [Moles/Vol] 140 mmol/L Normal 136-145 [facility] Comment on above: Performed By: #### D ATBMP #### [facility] [address] [place] [address] Dr. Joni Sanders Triglyceride [Mass/Vol] 204 mg/dL Critically high <=150 [facility] Comment on above: Performed By: #### D ATBMP #### [facility] [address] [address] [address] Joni Sanders Urea nitrogen [Mass/Vol] 22.0 mg/dL Critically high 7.0-18.0 [facility] Comment on above: Performed By: #### D ATBMP #### [facility] [address] [place] [address] Dr. Joni Sanders Urea nitrogen/Creatinine [Mass ratio] 22.0 mg/mg Normal [facility] Comment on above: Performed By: #### D ATBMP #### [facility] [address] [address] [address] Joni Sanders VLDL CALC 40.8 mg/dL Normal [facility] Comment on above: Performed By: #### D ATBMP #### [facility] [address] [place], [place] [id number] Dr. Joni Sanders Vital Signs Date Time Vital Sign Value Performing Clinician Alexa vizcaino 08-13-2023 13:47-0500 Body height 182.88 cm DO Calin Gotti Work Phone: [facility] [facility] 08-13-2023 13:47-0500 Body mass index (BMI) [Ratio] 32 kg/m2 DO Calin Samsa Work Phone: [facility] 08-13-2023 13:47-0500 Body weight 107.04 kg DO Calin Samsa Work Phone: [facility] 08-13-2023 13:47-0500 Diastolic blood pressure 81 mm[Hg] DO Calin Samsa Work Phone: [facility] 08-13-2023 13:47-0500 Heart rate 88 /min DO Calin Samsa Work Phone: [facility] 08-13-2023 13:47-0500 Respiratory rate 12 /min DO Calin Samsa Work Phone: [facility] 08-13-2023 13:47-0500 Systolic blood pressure 150 mm[Hg] DO Calin Samsa Work Phone: [facility] 07-23-2023 13:30-0500 Body height 182.88 cm Dawit Ball Other [facility] [employer] Other 07-23-2023 13:30-0500 Body mass index (BMI) [Ratio] 31.16 kg/m2 Dawit Ball Other [facility] [employer] Other 07-23-2023 13:30-0500 Body weight 104.24 kg Dawit Ball Other [facility] [employer] Other 07-23-2023 13:30-0500 Diastolic blood pressure 81 mm[Hg] Dawit Ball Other [employer] Other 07-23-2023 13:30-0500 Respiratory rate 12 /min Dawit Ball Other [facility] [employer] Other 07-23-2023 13:30-0500 Systolic blood pressure 133 mm[Hg] Dawit Ball Other [employer] Other 04-22-2023 10:00-0500 Body height 182.88 cm Dawit Ball Other [employer] Other 04-22-2023 10:00-0500 Body mass index (BMI) [Ratio] 30.78 kg/m2 Dawit Ball Other [employer] Other 04-22-2023 10:00-0500 Body weight 102.97 kg Dawit Ball Other [employer] Other 04-22-2023 10:00-0500 Diastolic blood pressure 111 mm[Hg] Dawit Ball Other [employer] Other 04-22-2023 10:00-0500 Respiratory rate 12 /min Dawit Ball Other [employer] Other 04-22-2023 10:00-0500 Systolic blood pressure 164 mm[Hg] Dawit Ball Other [employer] Other 02-11-2023 15:16-0400 Body height 182.9 cm Margie Li DO Work Phone: [facility] 02-11-2023 15:16-0400 Body mass index (BMI) [Ratio] 29.84 kg/m2 Margie Li DO Work Phone: [facility] 02-11-2023 15:16-0400 Body weight 99.79 kg Margie Li DO Work Phone: [facility] 01-16-2023 09:46-0400 Body height 182.9 cm Nena Bynum DO Work Phone: [facility] 01-16-2023 09:46-0400 Body mass index (BMI) [Ratio] 29.84 kg/m2 Nena Bynum DO Work Phone: [facility] 01-16-2023 09:46-0400 Body weight 99.79 kg Nena Bynum DO Work Phone: [facility] 01-10-2023 10:00-0400 Body height 182.88 cm Dawit Ball Other [employer] Other 01-10-2023 10:00-0400 Body mass index (BMI) [Ratio] 30.11 kg/m2 Dawit Ball Other [employer] Other 01-10-2023 10:00-0400 Body weight 100.7 kg Dawit Ball Other [employer] Other 01-10-2023 10:00-0400 Diastolic blood pressure 90 mm[Hg] Dawit Ball Other [employer] Other 01-10-2023 10:00-0400 Respiratory rate 12 /min Dawit Ball Other [employer] Other 01-10-2023 10:00-0400 Systolic blood pressure 134 mm[Hg] Dawit Ball Other [employer] Other 11-19-2022 13:38-0400 Body height 182.9 cm Margie Li DO Work Phone: [facility] 11-19-2022 13:38-0400 Body mass index (BMI) [Ratio] 30.24 kg/m2 Margie Ivany DO Work Phone: [facility] 11-19-2022 13:38-0400 Body weight 101.15 kg Margie Ivany DO Work Phone: [facility] 10-08-2022 13:20-0400 Body height 182.9 cm Flip Hill PA-C Work Phone: [facility] 10-08-2022 13:20-0400 Body mass index (BMI) [Ratio] 30.24 kg/m2 Flip Hill PA-C Work Phone: [facility] 10-08-2022 13:20-0400 Body weight 101.15 kg Flip Hill PA-C Work Phone: [facility] 08-28-2022 13:16-0400 Body height 182.9 cm Margierudi Ivannorris DO Work Phone: [facility] 08-28-2022 13:16-0400 Body mass index (BMI) [Ratio] 30.24 kg/m2 Margierudi Agarwalginsky DO Work Phone: [facility] 08-28-2022 13:16-0400 Body weight 101.15 kg Margie Ivany DO Work Phone: [facility] 07-20-2020 14:44-0500 BMI (Body Mass Index) 30.24 kg/m2 [facility] 07-20-2020 14:44-0500 Body weight 101.15 kg [facility] 07-20-2020 14:44-0500 Height 182.9 cm [facility] 07-01-2019 09:59-0500 BMI (Body Mass Index) 30.79 kg/m2 [facility] 07-01-2019 09:59-0500 Body weight 102.97 kg [facility] 07-01-2019 09:59-0500 Height 182.9 cm [facility] 07-30-2017 11:30-0500 BMI (Body Mass Index) 30.79 kg/m2 Karthik Pridealtonbruna [facility] Work Phone: 07-30-2017 11:30-0500 Height 182.9 cm Karthik Delgadomanjitbruna [facility] Work Phone: 07-30-2017 11:30-0500 Weight 102.97 kg Karthik Calloway [facility] Work Phone: 01-29-2017 12:07-0400 BMI (Body Mass Index) 29.97 kg/m2 Karthik Calloway [facility] Work Phone: 01-29-2017 12:07-0400 Height 182.9 cm Karthik Calloway [facility] Work Phone: 01-29-2017 12: Weight 100.25 kg Karthik Calloway [facility] Work Phone: Encounters Encounter Date Encounter Type Care Provider Facility Start: 10-15-2023 Telephone encounter 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 Comment on above: External Referrals/r esources Start: 10-02-2023 End: 10-02-2023 ambulatory DO Calin Samsa Work Phone: [facility] Work Phone: Start: 10-02-2023 End: 10-02-2023 Departed Referred DO Calin Samsa Work Phone: [facility] Start: 10-01-2023 End: 10-01-2023 ambulatory Calin P Samsa Facility:[facility] Start: 10-01-2023 Non-patient / Non-visit DO Shila tirado Samsa Work Phone: [facility] Work Phone: Start: 09-11-2023 Non-patient / Non-visit DO Shila tirado Samsa Work Phone: [facility] Work Phone: Start: 09-05-2023 End: 09-05-2023 ambulatory Calin P Samsa Facility:[facility] Start: 09-05-2023 End: 09-05-2023 ambulatory DO Calin Samsa Work Phone: [facility] Work Phone: Start: 09-05-2023 End: 09-05-2023 Departed Referred DO Calin Samsa Work Phone: [facility] Start: 09-04-2023 End: 09-04-2023 ambulatory Calin P Samsa Facility:[facility] Start: 09-04-2023 End: 09-04-2023 ambulatory DO Calin Sam Work Phone: [facility] Work Phone: Start: 09-04-2023 End: 09-04-2023 Departed Referred DO Calin Samsa Work Phone: [facility] Start: 09-04-2023 Non-patient / Non-visit DO Shila tirado Samsa Work Phone: [facility] Work Phone: Start: 08-28-2023 Non-patient / Non-visit DO Shila tirado Samsa Work Phone: [facility] Work Phone: Start: 08-22-2023 Non-patient / Non-visit DO Shila tirado Samsa Work Phone: [facility] Work Phone: Start: 08-21-2023 Non-patient / Non-visit DO Shila tirado Samsa Work Phone: [facility] Work Phone: Start: 08-15-2023 Non-patient / Non-visit DO Shila tirado Samsa Work Phone: [facility] Work Phone: Start: 08-13-2023 End: 08-13-2023 Patient encounter procedure DO Calincandida Gotti Work Phone: [facility] Work Phone: Start: 07-23-2023 End: 07-23-2023 ambulatory Dawit Lorenz Other [employer] Other Start: 07-23-2023 Patient encounter procedure Dawit Lorenz [facility] Start: 07-10-2023 End: 07-10-2023 ambulatory Dawit Lorenz Other [employer] Other Start: 07-10-2023 Telephone encounter Dawit Lorenz [facility] Start: 07-08-2023 End: 07-08-2023 ambulatory Dawit Lorenz Other [employer] Other Start: 07-08-2023 Telephone encounter Dawit Lorenz [facility] Start: 07-07-2023 End: 07-07-2023 ambulatory Dawit Lorenz Other [employer] Other Start: 07-07-2023 Telephone encounter Dawit Lorenz [facility] Start: 06-25-2023 End: 06-25-2023 Orders Only Janet Spangler MA [facility] Comment on above: Status post total kn ee replacement, bilateral (Primary Dx) Start: 06-25-2023 Telephone encounter Dawit Lorenz [facility] Start: 05-07-2023 End: 05-07-2023 ambulatory Dawit Lorenz Other [employer] Other Start: 05-07-2023 Telephone encounter Dawit Ball [facility] Start: 04-24-2023 End: 04-24-2023 ambulatory Dawit Lorenz Other [employer] Other Start: 04-24-2023 Telephone encounter Dawit Lorenz [facility] Start: 04-22-2023 End: 04-22-2023 ambulatory Dawit Ball Other [employer] Other Start: 04-22-2023 Patient encounter procedure Dawit Kelechi [facility] Start: 04-19-2023 End: 04-19-2023 ambulatory Dawit Ball Other [employer] Other Start: 04-19-2023 Telephone encounter Dawit Ball [facility] Start: 04-17-2023 End: 04-17-2023 ambulatory Dawit Ball Other [employer] Other Start: 04-17-2023 Telephone encounter Dawit Lorenz [facility] Start: 02-11-2023 End: 02-11-2023 Phys/qhp telephone evaluation 5-10 min Margie Li DO Work Phone: [facility] Comment on above: Hallux rigidus of le ft foot (Primary Dx) Start: 02-11-2023 End: 02-15-2023 Refill Janet Spangler MA [facility] Start: 01-16-2023 End: 01-20-2023 ambulatory DA[facility]OR[facility] Start: 01-16-2023 End: 01-16-2023 Office outpatient visit 10 minutes Nena Bynum DO Work Phone: [facility] Comment on above: Status post total kn ee replacement, bilateral (Primary Dx) Start: 01-10-2023 End: 01-10-2023 ambulatory Dawit Lorenz Other [employer] Other Start: 01-10-2023 Patient encounter procedure Dawit LIU [facility] Start: 11-19-2022 End: 11-19-2022 ambulatory DAWIT LORENZ [facility] Start: 11-19-2022 End: 11-19-2022 Office outpatient visit 15 minutes Margie Li DO Work Phone: [facility] Comment on above: Hallux rigidus of le ft foot (Primary Dx) Start: 10-08-2022 End: 10-08-2022 ambulatory DAWIT LORENZ [facility] Start: 10-08-2022 End: 10-08-2022 Office outpatient visit 5 minutes Flip Hill PA-C Work Phone: [facility] Comment on above: Hallux rigidus of le ft foot (Primary Dx); Metatarsalgia, left foot Start: 08-30-2022 Refill Janet Spangler MA [facility] Start: 08-28-2022 End: 09-01-2022 Refill Becca Carrasco [employer] [facility] Start: 08-28-2022 End: 08-28-2022 Office outpatient new 30 minutes Margie Li DO Work Phone: [facility] Comment on above: Hallux rigidus of le ft foot (Primary Dx); Eaton's metatarsalgia, left Start: 03-19-2022 End: 03-20-[address] NONE LISTED REQUEST Facility: Start: 08-11-2021 Refill Nena spencer DO Work Phone: [facility] Comment on above: Status post total kn ee replacement, bilateral (Primary Dx) Start: 08-11-2020 End: 08-11-2020 Orders Only Ana Richardsjosias Todd Work Phone: [facility] Start: 07-20-2020 End: 07-20-2020 Office outpatient visit 10 minutes Nena Bynum Work Phone: [facility] Comment on above: Status post total kn ee replacement, bilateral (Primary Dx) Start: 07-01-2019 End: 07-01-2019 Office outpatient visit 10 minutes Nena Bynum Work Phone: [facility] Comment on above: Status post total kn ee replacement, bilateral (Primary Dx) Start: 07-30-2017 Office/outpatient vi sit, est, level 3 Karthik Calloway Work Phone: [facility] Start: 01-29-2017 End: 01-29-2017 Office outpatient visit 15 minutes Karthik Calloway Work Phone: [facility] Comment on above: 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);Status post total right knee replacement Procedures Date Procedure Procedure Detail Performing Clinician Start: 10-01-2023 Acid Fast Smear DO Kanchan nunn [facility] Work Phone: Start: 10-01-2023 AFB Specimen Processing DO Calin [facility] Work Phone: Start: 10-01-2023 Microscopic observat ion [Identifier] in Unspecified specimen by Gram stain DO Calin [facility] Work Phone: Start: 09-04-2023 Acid Fast Smear DO Kanchan Gotti Work Phone: Start: 09-04-2023 AFB Specimen Processing DO Calin Gotti Work Phone: Start: 09-04-2023 Microscopic observat ion [Identifier] in Unspecified specimen by Gram stain DO Calin Gotti Work Phone: Start: 10-08-2022 Follow-up visit Follow-up [facility] Start: 03-19-[address] JOANNE NGUYEN REQUEST Comment on above: Performed By: #### P [facility] #### [facility] [address] [place] [address] Dr. Joni Sanders Screening for malign ant neoplasm of colon Dawit Ball Other Plan of Treatment Date Care Activity Detail Author Start: 08-30-2028 Tetanus vaccination Tetanus: Every 10yrs [facility] Start: 02-16-2024 Influenza vaccination Influenza Vaccine (Season Ended) [facility] Start: 10-01-2023 Acid Fast Culture Acid Fast Culture [facility] Start: 09-04-2023 Acid Fast Culture Acid Fast Culture [facility] Start: 06-17-2023 Advance Directive Discussion Advance Directive Discussion [facility] Start: 06-17-2023 Behavioral Health Screening Behavioral Health Screening [facility] Start: 02-15-2023 COVID-19 Vaccine ( season) COVID-19 Vaccine ( season) [facility] Start: 02-15-2023 Influenza vaccination [facility] Start: 02-11-2023 End: 02-11-2023 Patient encounter procedure 02/11/2023 1:15 PM EDT Office Visit [facility] [address] [place] [address] Margie Li DO [address] [place] [address] [facility] Start: 01-14-2023 End: 01-14-2023 Patient encounter procedure 01/14/2023 1:15 PM EDT Office Visit [facility] [address] [place] [address] Margie Li, DO [address] [place] [address] [facility] Start: 11-19-2022 End: 11-19-2022 Patient encounter procedure 11/19/2022 1:30 PM EDT Office Visit [facility] [address] [place] [address] Margie Li, DO [address] [place] [address] [facility] Start: 10-08-2022 End: 10-08-2022 Patient encounter procedure 10/08/2022 Office Visit Orthopedic Surgery Margie Li, DO [address] [place] [address] [facility] Start: 02-15-2022 Influenza vaccination Sequential Influenza Vaccine (#1) [facility] Start: 07-05-2021 COVID-19 Vaccine (4 - Booster for Pfizer series) COVID-19 Vaccine (4 - Booster for Pfizer series) [facility] Start: 07-05-2021 COVID-19 Vaccine (4 - Pfizer series) COVID-19 Vaccine (4 - Pfizer series) [facility] Start: 07-05-2021 COVID-19 Vaccine (5 - Booster) COVID-19 Vaccine (5 - Booster) [facility] Start: 02-15-2021 Influenza vaccination Sequential Influenza Vaccine (#1) [facility] Start: 07-01-2020 End: 07-01-2020 Office Visit 07/01/2020 Office Visit Orthopedic Surgery Nena Bynum, DO [address] [place] [address] [phone] [facility] Start: 02-16-2020 Influenza vaccination given Sequential Influenza Vaccine (#1) [facility] Start: 06-30-2019 Ambulatory 06/30/2019 Office Visit Orthopedic Surgery Karthik Calloway MD [address] [place] [address] [phone] [facility] Start: 02-15-2019 Influenza vaccination given SEQUENTIAL INFLUENZA VACCINE (#1) [facility] Start: 10-25-2018 Administration of herpes zoster vaccine Zoster Vaccines (2 of 2) [facility] Start: 10-25-2018 Shingrix Vaccine (2 of 2) Shingrix Vaccine (2 of 2) [facility] Start: 07-30-2017 Ambulatory 07/30/2017 Office Visit Orthopedic Surgery Karthik Calloway MD [address] [place] [address] [phone] [facility] Start: 02-15-2017 Influenza vaccination SEQUENTIAL INFLUENZA VACCINE (#1) [facility] Work Phone: Start: 02-15-2017 SEQUENTIAL INFLUENZA VACCINE (#1) SEQUENTIAL INFLUENZA VACCINE (#1) [facility] Work Phone: Start: 2016 Fall risk assessment Falls Risk Assessment [facility] Start: 2016 Pneumococcal vaccination PNEUMOCOCCAL VACCINE AGE 65+ (1 of 2 - PCV13) [facility] Work Phone: Start: 2016 PNEUMOCOCCAL VACCINE AGE 65+ (1 of 2 - PCV13) PNEUMOCOCCAL VACCINE AGE 65+ (1 of 2 - PCV13) [facility] Work Phone: Start: 2011 RSV Vaccine (1 - 1-dose 60+ series) RSV Vaccine (1 - 1-dose 60+ series) [facility] Start: 2011 Zoster vacc, sc ZOSTER VACCINE [facility] Work Phone: Start: 2001 Screening for malignant neoplasm of colon [facility] Start: 1996 Diabetes Screening Diabetes Screening [facility] Start: 1996 Screening for malignant neoplasm of colon [facility] Start: 1986 Lipid panel Lipid Screening [facility] Start: 1970 Urine microalbumin profile DTaP,Tdap,Td Vaccine (1 - Tdap) [facility] Start: 1969 Hepatitis C antibody, confirmatory test Hepatitis C Screening [facility] Start: 1969 Hepatitis C screening Hepatitis C Screening [facility] Start: 1967 COVID-19 Vaccine (1 of 2) COVID-19 Vaccine (1 of 2) [facility] Start: 1963 Adolescent depression screening assessment Depression Screening (PHQ9) [facility] Start: 1963 Depression screening using PHQ-9 (Patient Health Questionnaire 9) score Depression Screening (PHQ-2/9) [facility] Start: 1956 COVID-19 Vaccine (1) COVID-19 Vaccine (1) [facility] Start: 1954 History and physical examination, annual for health maintenance Wellness Visit [facility] Start: 1950 Colonoscopy COLONOSCOPY [facility] Work Phone: Start: 1951 Fall risk assessment Falls Risk Assessment [facility] Start: 1951 Hepatitis C antibody, confirmatory test HEPATITIS C SCREENING [facility] Start: 1951 Prostate specific antigen measurement PSA Level [facility] Start: 1951 Screening for malignant neoplasm of colon [facility] Start: 1951 TETANUS EVERY 10 YR TETANUS EVERY 10 YR [facility] Work Phone: Start: 1950 End: 1951 HEPATITIS C SCREENING HEPATITIS C SCREENING [facility] Work Phone: Start: 1950 Screening colonoscopy COLONOSCOPY [facility] Work Phone: Start: 1950 End: 1950 Tetanus vaccination [facility] Comprehensive metabo lic 2000 panel - Serum or Plasma [facility] CT Chest W contrast IV [facility] US Heart Transthoracic [facility] Immunizations Immunization Date Immunization Notes Care Provider Fa cility 09-12-2020 COVID-19 mRNA, Comirnaty (Pfizer) DO [facility] Work Phone: [facility] 08-15-2020 COVID-19 mRNA, Comirnaty (Pfizer) DO [facility] Work Phone: [facility] 05-09-2020 influenza virus vaccine, split virus (incl. purified surface antigen) Dawit Lorenz Other [employer] Other 05-09-2020 influenza virus vaccine, unspecified formulation DO Calin Gotti Work Phone: [facility] 08-30-2018 tetanus and diphther ia toxoids, adsorbed, preservative free, for adult use (5 Lf of tetanus toxoid and 2 Lf of diphtheria toxoid) Dawit Lorenz Other [facility] 06-04-2018 tetanus and diphther ia toxoids, adsorbed, preservative free, for adult use (5 Lf of tetanus toxoid and 2 Lf of diphtheria toxoid) Dawit Lorenz Other [facility] 02-03-2018 pneumococcal polysaccharide vaccine, 23 valent Dawit Lorenz Other [facility] 11-26-2016 pneumococcal conjuga te vaccine, 13 valent Dawit Lorenz Other [facility] Payers Date Payer Category Payer Self-pay [id number] 2016 Medicare [place] [id number] 2016-Present [id number] 2016 [place] [id number] 2016-Present [id number] 2016 Medicare [id number] 1959 Medicare [id number] 1959 Self-pay [id number] 1951 Unknown [id number] 1951 Unknown [id number] 1951 Unknown [id number] [id number] 1951 Unknown [id number] 1951 Unknown [id number] 1951 Unknown [id number] 1951 Unknown [id number] [id number] 1951 Unknown [id number] [id number] 1951 Unknown [id number] 1951 Unknown [id number] [id number] 1950 Unknown [id number] [id number] Medicare [id number] Unknown [id number] Unknown [id number] Unknown [id number] Unknown [id number] Social History Date Type Detail Facility Start: 07-30-2017 End: 12-15-2020 Tobacco smoking status MOIS Never smoker [facility] Work Phone: Start: 1950 Sex Assigned At Not on file [facility] Work Phone: Start: 07-01-2019 End: 02-11-2023 Alcohol intake Current drinker of alcohol (finding) [facility] Start: 07-20-2020 End: 12-15-2020 Tobacco use and exposure Never used [facility] Start: 08-18-2022 End: 10-08-2022 Exposure to SARS-CoV-2 (event) Not sure [facility] Start: 12-15-2020 End: 08-28-2022 History of Social function [facility] Start: 12-15-2020 End: 08-28-2022 Tobacco use panel [facility] Start: 1950 Sex Assigned At Male F [facility] National Score (1-100), lower number is lower risk Not on file [facility] Medical Equipment Procedure Code Equipment Code Equipment Origin al Text Equipment Identifier Dates Cement 1 X 40 [place] Bone Single - [id number] Start: 08-23-2014 Stem Short Cemen prerna Persona - [id number] Start: 08-23-2014 Stem Sz F Tib 5d eg Nonpor Lt Persona - [id number] Start: 08-23-2014 Femoral Sz9 Lt N rw Ps Cmt Ccr Persona - [id number] Start: 08-23-2014 Patella 32mm All Poly Persona - [id number] Start: 08-23-2014 Articular Surf E f 6-9 14mm Lt Ps [employer] Persona - [id number] Start: 08-23-2014 Stem Short Cemen prerna Persona - [id number] Start: 06-25-2016 Patella 32mm All Poly [employer] - [id number] Start: 06-25-2016 Articular Surf 1 4mm 6-9ef Rt Cps Ve Persona - [id number] Start: 06-25-2016 Simplex Hv With Gentamicin Cement Start: 06-25-2016 Stem Sz F Tib 5d eg Nonpor Rt Persona - [id number] Start: 06-25-2016 Femoral Sz9 Rt N rw Ps Cmt Ccr Persona - [id number] Start: 06-25-2016 Cement 1 X 40 [place] Bone Single - [id number] Start: 08-23-2014 Stem Short Cemen prerna Persona - [id number] Start: 08-23-2014 Stem Sz F Tib 5d eg Nonpor Lt Persona - [id number] Start: 08-23-2014 Femoral Sz9 Lt N rw Ps Cmt Ccr Persona - [id number] Start: 08-23-2014 Patella 32mm All Poly Persona - [id number] Start: 08-23-2014 Articular Surf E f 6-9 14mm Lt Ps Vivacit-E Persona - [id number] Start: 08-23-2014 Stem Short Cemen prerna Persona - [id number] Start: 06-25-2016 Patella 32mm All Poly Vivacit-E - [id number] Start: 06-25-2016 Articular Surf 1 4mm 6-9ef Rt Cps Ve Persona - [id number] Start: 06-25-2016 Simplex Hv With Gentamicin Cement Start: 06-25-2016 Stem Sz F Tib 5d eg Nonpor Rt Persona - [id number] Start: 06-25-2016 Femoral Sz9 Rt N rw Ps [facility] Ccr Persona - [id number] Start: 06-25-2016 Cement 1 X 40 Palacos Bone Single - [id number] Start: 08-23-2014 Stem Short Cemen prerna Persona - [id number] Start: 08-23-2014 Stem Sz F Tib 5d eg Nonpor Lt Persona - [id number] Start: 08-23-2014 Femoral Sz9 Lt N rw Ps [facility] Ccr Persona - [id number] Start: 08-23-2014 Patella 32mm All Poly Persona - [id number] Start: 08-23-2014 Articular Surf E f 6-9 14mm Lt Ps Vivac[employer]-E Persona - [id number] Start: 08-23-2014 Stem Short Cemen prerna Persona - [id number] Start: 06-25-2016 Patella 32mm All Poly Vivacit-E - [id number] Start: 06-25-2016 Articular Surf 1 4mm 6-9ef Rt Cps Ve Persona - [id number] Start: 06-25-2016 Simplex Hv With Gentamicin Cement Start: 06-25-2016 Stem Sz F Tib 5d eg Nonpor Rt Persona - [id number] Start: 06-25-2016 Femoral Sz9 Rt N rw Ps Cmt Ccr Persona - [id number] Start: 06-25-2016 Cement 1 X 40 [place] Bone Single - [id number] Start: 08-23-2014 Stem Short Cemen prerna Persona - [id number] Start: 08-23-2014 Stem Sz F Tib 5d eg Nonpor Lt Persona - [id number] Start: 08-23-2014 Femoral Sz9 Lt N rw Ps Cmt Ccr Persona - [id number] Start: 08-23-2014 Patella 32mm All Poly Persona - [id number] Start: 08-23-2014 Articular Surf E f 6-9 14mm Lt Ps Vivacit-E Persona - [id number] Start: 08-23-2014 Stem Short Cemen prerna Persona - [id number] Start: 06-25-2016 Patella 32mm All Poly Vivacit-E - [id number] Start: 06-25-2016 Articular Surf 1 4mm 6-9ef Rt Cps Ve Persona - [id number] Start: 06-25-2016 Simplex Hv With Gentamicin Cement [id number] Start: 06-25-2016 Stem Sz F Tib 5d eg Nonpor Rt Persona - [id number] Start: 06-25-2016 Femoral Sz9 Rt N rw Ps Cmt Ccr Persona - [id number] Start: 06-25-2016 Clinical Notes 08-28-2022 to 10-15-2023 Telephone Encounter - Sol Desouza - 10/15/2023 4:06 PM EDTTelephone Encounter - Sol Desouza - 10/15/2023 4:06 PM EDT Note Date & Type Note Facility 10-15-2023 Telephone encounter Note Summ suma: [facility] Patient: Bryan Harris Date of : 1950 Patient phone number: [phone] Referring Provider for the encounter: Calin Gotti Requesting Provider: Dr Ronaldo Ramos Reason for requesting visit (RFV/signs and symptoms/diagnosis): pleural effusion recurment . Person calling: Via RP FAX Return call to: self Medical Records/Insurance Card scanned into [facility]: Comments: [facility] 10-15-2023 Miscellaneous Notes Summary: [facility] Patient: Bryan Harris Date of : 1950 Patient phone number: [phone] Referring Provider for the encounter: Calin Gotti Requesting Provider: Dr Ronaldo Ramos Reason for requesting visit (RFV/signs and symptoms/diagnosis): pleural effusion recurment . Person calling: Via RP FAX Return call to: self Medical Records/Insurance Card scanned into [employer]: Comments: documented in this encounter [facility] 07-23-2023 Evaluation note Encounter Date Diagnosis Assessment Notes Jul, Subacute cough (ICD-10 - R05.2) Continue treatment of any PND and GERD. Continue Mucinex DM. Trial of Prednisone and Albuterol. Jul, Primary hypertension (ICD-10 - I10) This patient is instructed to consume a healthy, low-fat, low-salt diet. They are also encouraged to continue exercise to achieve/maint ain a normal BMI. [employer] Other 01-24-2024 Evaluation note* Encounter Date Diagnosis Assessment Notes Treatment Notes Treatment Clinical Notes Jun, Subacute cough (ICD-10 - R05.2) [employer] Other 01-21-2024 Evaluation note* Encounter Date Diagnosis Assessment Notes Treatment Notes Treatment Clinical Notes Jun, Subacute cough (ICD-10 - R05.2) [employer] Other 01-09-2024 Evaluation note* Encounter Date Diagnosis Assessment Notes Treatment Notes Treatment Clinical Notes Jun, Primary hypertension (ICD-10 - I10) [employer] Other 11-21-2023 Evaluation note* Encounter Date Diagnosis Assessment Notes Treatment Notes Treatment Clinical Notes Apr, Acute bronchitis due to other specified organisms (ICD-10 - J20.8) [employer] Other 11-08-2023 Evaluation note* Encounter Date Diagnosis Assessment Notes Treatment Notes Treatment Clinical Notes Apr, Primary hypertension (ICD-10 - I10) [employer] Other 11-06-2023 Evaluation note* Encounter Date Diagnosis [...] PSA (prostate specific antigen) (ICD-10 - Z12.5) [place] PSA [employer] Other 11-01-2023 Evaluation note* Encounter Date Diagnosis Assessment Notes Treatment Notes Treatment Clinical Notes Apr, Screening PSA (prostate specific antigen) (ICD-10 - Z12.5) Apr, Hyperlipidemia type II (ICD-10 - E78.01) Apr, Gastro-esophageal reflux disease with esophagitis, without bleeding (ICD-10 - K21.00) Apr, Fatigue, unspecified type (ICD-10 - R53.83) Apr, High risk medication use (ICD-10 - Z79.899) [employer] Other 08-28-2023 History of Present illness Narrative* Margie Li, DO - 02/11/2023 2:00 PM EDT Telehealth Visit Via Phone Call Patient: Bryan Harris Date of : 1950 (72 y.o. male) Patient Patient Location: [address] [place] [address] [place] [address] Provider Location: [facility] I discussed risks, benefits and alternatives of [...] there are inherent diagnostic limitations compared to nqda-pd-wjnm evaluations. We elected toproceed with the telephone [...] expedite correspondence this note was generated by [employer] voice recognition software. Somegrammatical or spelling errors may occur using the system. documented in this [id number] History of Present illness Narrative* Nena Bynum, - 01/16/2023 10:35 AM EDT [facility] [address] [place] [address] Patient Name: Bryan Harris Patient Age: 72 [...] Surgeon: Karthik Calloway MD; Location: [facility]; Service: ARTHROPLASTY KNEE TOTAL Right 06/25/2016 Procedure: RIGHT TOTAL KNEE ARTHROPLASTY ; Surgeon: Karthik Calloway MD; Location: [facility]; Service: BASAL CELL CARCINOMA EXCISION Left [...] mouth every morning . vit A-vit C-vit E-xgrw-nbjhft 7,160-113-100 frbb-km-cahp Tab Take 1 tablet by mouth every [...] Imaging: X-rays of the left knee from [facility] taken today are reviewed. My personal [...] expedite correspondence this note was generated by [employer] voice recognition software. Somegrammatical or spelling errors may occur using the system. documented in this [id number] Evaluation note* Encounter Date Diagnosis Assessment Notes Treatment Notes Treatment Clinical Notes Dec, Laceration of scalp, initial encounter (ICD-10 - S01.01XA) Cleanse scalp w/ soap and water [employer] Other 06-05-2023 History of Present illness Narrative* [...] the left great toe does not apparently charter coordinator the ground. IMAGING: Please see dictated report. ASSESSMENT: Left hallux rigidus Left metatarsalgia PLAN: I performed a left first MTP joint injection at today's visit. Please see separate procedure note. I recommended that we proceed with custom orthotics with a Eaton's extension, built-in metatarsal pad. Order was placed to [facility]. We discussed left first MTP joint arthrodesis at today'svisit. We discussed the fact that he would have to be nonweightbearing following the procedure. Thepatient would like to hold off on any surgery at today's visit. We will see him back in 6 weeks. Radiographs next visit: None Margie Li DO Orthopedic Foot and Ankle Surgeon To expedite correspondence, this note was generated by [employer] voice recognition software. Some grammatical or spelling errors may occur using this system. documented in this [id number] History of Present illness Narrative* [place] [...] expedite correspondence, this note was generated by [employer] voice recognition software. Some grammatical or spelling errors may occur using this system. documented in this [id number] History of Present illness Narrative* Margie Li, - 08/28/2022 1:46 PM EDT 08/28/22 Bryan [...] the left great toe does not apparently charter coordinator the ground. IMAGING: Please see dictated report. [...] expedite correspondence, this note was generated by [employer] voice recognition software. Some grammatical or spelling errors may occur using this system. [facility]* Diagnosis Status post total knee replacement, bilateral- Primary [facility] Diagnosis Hallux rigidus of left foot- Primary Eaton's metatarsalgia, left [facility] Diagnosis Hallux rigidus of left foot- Primary Metatarsalgia, left foot [facility] Diagnosis Hallux rigidus of left foot- Primary [facility] Diagnosis Status post total knee replacement, bilateral- Primary [facility] Diagnosis Hallux rigidus of left foot- Primary [facility] noteNo [employer] Other Evaluation note* Diagnosis Status post total knee replacement, bilateral- Primary [facility] Diagnosis Onset Date Resolution Status Nausea & vomiting acute Primary hypertension acute Subacute cough acute Dyspnea on effort noneactive Murmur noneactive [facility] Work Phone: History general Narrative - Reported* Type Description Date Medical History 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 Medical History Benign prostatic hyp erplasia with lower urinary tract symptoms Medical History Hyperlipidemia type II Medical History Gastro-esophageal re flux disease with esophagitis, without bleeding Surgical History both knee replaced Surgical History hand surgery Hospitalization History SEE ABOVE [employer] Other Assessments Diagnosis Primary osteoarthritis of ri [...] note may be different from the original. [facility] [address] [place] [address] [address] [address] Patient Name: Bryan Harris Patient Age: 66 [...] note may be different from the original. [facility] [address] [place] [address] Patient Name: Bryan Harris Patient Age: 66 [...] Bynum, DO - 07/01/2019 10:05 AM EST [facility] [address] [place] [address] Patient Name: Bryan Harris Patient Age: 69 [...] Surgeon: Karthik Calloway MD; Location: [facility]; Service: ARTHROPLASTY KNEE TOTAL Right 06/25/2016 Procedure: RIGHT TOTAL KNEE ARTHROPLASTY ; Surgeon: Karthik Calloway MD; Location: [facility]; Service: BASAL CELL CARCINOMA EXCISION Left 11/2014 [...] file Gets together: Not on file Attends restoration service: Not on file Active member of [...] mouth every morning . vit A-vit C-vit O-zovd-kiwhcw (EYE VITAMIN AND MINERALS) 7,160-113-100 jvvf-oj-qkce Tab Take 1 tablet by mouth every [...] with no interval change from most recentimaging. [place] view shows the patella tracks well without [...] expedite correspondence this note was generated by [employer] voice recognition software. Somegrammatical or spelling errors may occur using the system. documented in this encounter* Nena Bynum DO - 07/20/2020 2:42 PM EST [facility] [address] [place] [address] Patient Name: Bryan Harris Patient Age: 70 [...] Surgeon: Karthik Calloway MD; Location: [facility]; Service: ARTHROPLASTY KNEE TOTAL Right 06/25/2016 Procedure: RIGHT TOTAL KNEE ARTHROPLASTY ; Surgeon: Karthik Calloway MD; Location: [facility]; Service: BASAL CELL CARCINOMA EXCISION Left [...] file Gets together: Not on file Attends restoration service: Not on file Active member of [...] mg by mouth daily. vit A-vit C-vit G-jdgp-lfcpgb (EYE VITAMIN AND MINERALS) 7,160-113-100 wvgs-iy-sbzq Tab Take 1 tablet by mouth every [...] with no interval change from most recentimaging. [place] view shows the patella tracks well in [...] expedite correspondence this note was generated by [employer] voice recognition software. Somegrammatical or spelling errors may occur using the system. 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 Advance Directives and Living Will [...] 19, 2020 11:13am Summary Purpose Family History No Family History Records Found Relationship Condition Age at Onset Recorded Date/T christine father Unknown Not Specified Unknown Chief Complaint and Reason for Visit Chief Complaint not doing good - per Dr Lorenz Amb Documentation Unknown Reason for Visit Nausea & vomiting Primary hypertension Subacute cough Dyspnea on effort Murmur Chief Complaint not doing good - per Dr Lorenz Amb Documentation Unknown Unknown Reason for Visit Nausea & vomiting Primary hypertension Subacute cough Dyspnea on effort Murmur Chief Complaint not doing good - per Dr Lorenz Amb Documentation Unknown Unknown Unknown Reason for Visit Nausea & [...] Reason Onset Date Comments Medication Refill 02/11/2023 Reason Comments External Referrals/resources Care Teams (unrecognized sec tion and content) Accounts Payable Supervisor Relationship Specialty Start Date End Date Dawit Lorenz DO [address] [place] [address] PCP - General Internal Medicine 06/29/14 Dawit Lorenz DO [address] [place] [address] Internal Medicine 06/29/14 Karthik Calloway MD Consulting Physician Orthopedic Surgery 01/28/17 Accounts Payable Supervisor Relationship Specialty Start Date End Date Dawit Lorenz DO [address] [place] [address] PCP - General Internal Medicine 06/29/14 Dawit Lorenz DO [address] [place] [address] Internal Medicine 06/29/14 Karthik Calloway MD [address] [place] [address] Consulting Physician Orthopedic Surgery 01/28/17 Accounts Payable Supervisor Relationship Specialty Start Date End Date Dawit Lorenz DO [address] [facility] [place] [address] PCP - General Internal Medicine 06/29/14 Dawit Lorenz DO [address] [facility] [place] [address] Internal Medicine 06/29/14 Karthik Calloway MD [address] [facility] [place] [address] Consulting Physician Orthopedic Surgery 01/28/17 Accounts Payable Supervisor Relationship Specialty Start Date End Date Dawit Lorenz DO [address] [facility] [place] [address] PCP - General Internal Medicine 06/29/14 Dawit Lorenz DO [address] [facility] [place] [address] Internal Medicine 06/29/14 Karthik Calloway MD [address] [facility] [place] [address] Consulting Physician Orthopedic Surgery 01/28/17 Accounts Payable Supervisor Relationship Specialty Start Date End Date Dawit Lorenz DO [address] [facility] [place] [address] PCP - General Internal Medicine 06/29/14 Dawit Lorenz DO [address] [facility] [place] [address] Internal Medicine 06/29/14 Karthik Calloway MD [address] [facility] [place] [address] Consulting Physician Orthopedic Surgery 01/28/17 Accounts Payable Supervisor Relationship Specialty Start Date End Date Dawit Lorenz DO [address] [facility] [place] [address] PCP - General Internal Medicine 06/29/14 Dawit Lorenz DO [address] [facility] [place] [address] Internal Medicine 06/29/14 Karthik Calloway MD [address] [facility] [place] [address] Consulting Physician Orthopedic Surgery 01/28/17 Accounts Payable Supervisor Relationship Specialty Start Date End Date Dawit Lorenz DO [address] [facility] [place] [address] PCP - General Internal Medicine 06/29/14 Dawit Lorenz DO [address] [facility] [place] [address] Internal Medicine 06/29/14 Karthik Calloway MD [address] [facility] [place] [address] Consulting Physician Orthopedic Surgery 01/28/17 Accounts Payable Supervisor Relationship Specialty Start Date End Date Dawit Lorenz DO [address] [facility] [place] [address] PCP - General Internal Medicine 06/29/14 Dawit Lorenz DO [address] [facility] [place] [address] Internal Medicine 06/29/14 Karthik Calloway MD [address] [facility] [place] [address] Consulting Physician Orthopedic Surgery 01/28/17 Accounts Payable Supervisor Relationship Specialty Start Date End Date Dawit Lorenz DO [address] [facility] [place] [address] PCP - General Internal Medicine 06/29/14 Dawit Lorenz DO [address] [facility] [place] [address] Internal Medicine 06/29/14 Karthik Calloway MD [address] [facility] [place] [address] Consulting Physician Orthopedic Surgery 01/28/17 Team Status: [...] Inactive Member Role Status Dates Calin Gotti , Attending Provider Active St art: September 04, 2023 End: September 04, 2023 Team Status: Inactive Member Role Status Dates Calin Gotti , Attending Provider Active St art: September 05, 2023 End: September 05, 2023 Team Status: Active Member Role Status Dates Dawit Lorenz DO Attending Provider Active Sta rt: September 11, 2023 Team Status: Active Member Role Status Dates Dawit Lorenz DO Attending Provider Active Sta rt: October 01, 2023 Team Status: Inactive Member Role Status Dates Calin Gotti , DO Attending Provider Active St art: October 02, 2023 End: October 02, 2023 Accounts Payable Supervisor Relationship Specialty Start Date End Date Dawit Lorenz DO [address] [place] [address] PCP - General Internal Medicine 12/07/20 Jere Sales [address] [facility] [address] [place] [address] Referring Gastroenterology 12/05/20 (unrecognized sect ion and content) No Status Records FoundNo Status Records FoundNo Status Records FoundNo Status Records Found INFORMATION SOURCE (unrecogn ized section and content) DATE CREATED AUTHOR 03/22/2022 [facility] DATE CREATED AUTHOR [facility]S OR[facility] DATE CREATED AUTHOR AUTHOR'S ORGANIZ ATION 10/13/2023 [facility] DATE CREATED AUTHOR AUTHOR'S ORGANIZ ATION 10/17/2023 [facility] Goals (unrecognized section and content) Goals may be documented in a n alternate section Source Comments (unrecognize d section and content) In the event this informatio n is protected by the Federal Confidentiality of Alcohol and Drug Abuse Patient Records regulations: The Federal rules restrict any use of the information to criminally investigate or prosecute any alcohol or drug abuse patient.[facility] FOR RECORDS PERTAINING TO PATIENTS WHO ARE [...] BE BASED ON THE PRIMARY CLINICAL RECORDS. [employer] [facility]. provides no warranty or guarantee of the accuracy or completeness of information in this document.
--- NOTE | 2023-10-18 20:04 | ECG_ITS ---
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
--- NOTE | 2023-10-18 20:04 | XR_ITS ---
The [address] [address] Patient Name: SAV RAYMUNDO MRN: [id number] date: 1950 Sex: M Assigned Patient Location: ER Current Patient Location: ER Accession/Order Number: [id number] Exam Date: 10/18/2023 20:14 Report Date: 10/18/2023 20:54 At the request of: MIKE RAHMAN Procedure: XR chest 1V EXAM: XR chest 1V HISTORY: SOB previous pleural effusions COMPARISON: 10/01/2023 TECHNIQUE: Single view of the chest FINDINGS: Borderline cardiomegaly, accentuated by technique. No definitive focal consolidation or pneumothorax. Small right pleural effusion. No convincing vascular congestion. XR/XR chest 1V IMPRESSION: Small right pleural effusion. No other acute findings. Electronically authenticated by: DEVORA BARRETT Date: 10/18/2023 20:54
--- NOTE | 2023-10-18 20:05 | ED_ITS ---
HPI - SOB/Dyspnea General Chief Complaint: Shortness of Breath/Dyspnea Stated Complaint: Shortness of Breath/Dyspnea Time Seen by Provider: 10/18/23 19:58 Source: patient Mode of arrival: walk-in Limitations: no limitations History of Present Illness HPI Narrative: 73-year-old male presents for shortness of breath. In July of this year he was diagnosed with a pleural effusion and needed thoracentesis. He had thoracentesis a few weeks ago. He feels like the fluid may be reaccumulating. He has been having increasing shortness of breath without fever or significant cough. He is seeing a binder stripper machine for this issue. Related Data Home Medications ?Medication ?Instructions ?Recorded ?Confirmed albuterol sulfate 90 mcg/actuation 2 puff inhalation Q6H PRN 08/15/23 08/15/23 aerosol inhaler shortness of breath or wheezing allopurinol 300 mg tablet 300 mg PO DAILY 08/15/23 08/15/23 atorvastatin 10 mg tablet 10 mg PO QPM 08/15/23 08/15/23 fluticasone 100 mcg-salmeterol 50 1 inh inhalation Q12H 08/15/23 08/15/23 mcg/dose blistr powdr for inhalation losartan 25 mg tablet 25 mg PO DAILY 08/15/23 08/15/23 prednisone 10 mg tablet 10 mg PO BID 08/15/23 08/15/23 Allergies Allergy/AdvReac Type Severity Reaction Status Date / Time tramadol Allergy Severe Verified 10/18/23 19:51 Review of Systems ROS Narrative A ten point review of systems is negative except as noted above. Exam Narrative Exam Narrative: Nurses note and vital signs reviewed and patient is not hypoxic. General: The patient appears well and in no apparent distress. Patient is resting comfortably on cart. Skin: Warm, dry, no pallor noted. There is no rash noted. Head: Normocephalic, atraumatic Eye: Normal conjunctiva, no drainage Ears, Nose, Mouth, and Throat: oral mucosa is moist. Nares patent. Cardiovascular: Regular Rate and Rhythm Respiratory: Patient is in no distress, no accessory muscle use, breath sounds are present bilaterally Back: non-tender GI: Soft and nontender Musculoskeletal: The patient has no evidence of calf tenderness, no pitting edema, symmetrical pulses noted bilaterally Neurological: A&O, normal speech Psychiatric: Cooperative Constitutional Vital Signs, click to edit/add: Last Vital Signs Temp 97.8 F 10/18/23 19:51 Pulse 81 10/18/23 21:15 Resp 19 10/18/23 21:15 BP 137/72 10/18/23 21:15 Pulse Ox 97 10/18/23 21:18 O2 Del Method Room Air 10/18/23 21:18 Course Vital Signs Vital signs: Vital Signs Pulse Rate 83 10/18/23 19:49 Respiratory Rate 16 10/18/23 19:49 Pulse Oximetry 97 10/18/23 19:49 Temperature 97.8 F 10/18/23 19:51 Pulse Rate 81 10/18/23 21:15 Respiratory Rate 19 10/18/23 21:15 Blood Pressure 137/72 10/18/23 21:15 Pulse Oximetry 97 10/18/23 21:18 Oxygen Delivery Method Room Air 10/18/23 21:18 MDM - SOB/Dyspnea MDM Narrative Medical decision making narrative: Chest x-ray shows small right pleural effusion. Case discussed with Dr. Gotti and a CAT scan is ordered. It shows no PE and does show the right pleural effusion. Pericardial effusion is essentially gone as is the left pleural effusion. He will follow-up with Dr. Gotti or [facility] when he is able to get into see them. Treatment diagnosis and follow-up were discussed with the patient and his . Differential Diagnosis Differential diagnosis: Likely congestive heart failure, community acquired pneumonia, pulmonary embolism and other (Pleural effusion, pneumothorax) Lab Data Attestation: I reviewed the patient's lab results. Labs: Lab Results 10/18/23 Range/Units 20:30 WBC 7.5 (4.0-11.0) 10^3/uL RBC 4.22 L (4.70-6.10) 10^6/uL Hgb 12.9 L (14.0-18.0) g/dL Hct 40.2 L (42.0-54.0) % MCV 95.3 H (80.0-94.0) fL MCH 30.6 (25.9-34.0) pg MCHC 32.1 (29.9-35.2) g/dL RDW 14.2 (11.0-15.0) % Plt Count 227 (150-450) 10^3/uL MPV 10.5 (9.5-13.5) fL Neut % (Auto) 65.5 (43.0-75.0) % Lymph % (Auto) 23.7 (20.5-60.0) % [place] % (Auto) 9.2 (1.7-12.0) % Eos % (Auto) 0.0 L (0.9-7.0) % Baso % (Auto) 0.8 (0.2-2.0) % Neut # (Auto) 4.9 (1.4-6.5) 10^3/uL Lymph # (Auto) 1.8 (1.2-3.8) 10^3/uL [place] # (Auto) 0.7 (0.3-0.8) 10^3/uL Eos # (Auto) 0.0 (0.0-0.7) 10^3/uL Baso # (Auto) 0.1 (0.0-0.1) 10^3/uL Abs Immat Gran (auto) 0.06 H (0.00-0.03) 10^3/uL Imm/Tot Granulo (auto) 0.8 H (0.0-0.5) % Sodium 138 (136-145) mmol/L Potassium 4.0 (3.5-5.1) mmol/L Chloride 105 (98-107) mmol/L Carbon Dioxide 25.4 (21.0-32.0) mmol/L Anion Gap 11.6 BUN 22.0 H (7.0-18.0) mg/dL Creatinine 1.07 (0.70-1.30) mg/dL Est GFR ( Amer) >60 (>=60) Est GFR (Non-Af Amer) >60 (>=60) BUN/Creatinine Ratio 20.6 Glucose 149 H (74-106) mg/dL Calcium 9.2 (8.5-10.1) mg/dL Imaging Data Chest x-ray: Radiologist's impression: ITS Impressions Chest X-Ray 10/18/23 20:04 IMPRESSION: Small right pleural effusion. No other acute findings. Electronically authenticated by: DEVORA BARRETT Date: 10/18/2023 20:54 Chest CTA 10/18/23 21:52 IMPRESSION: 1. No acute pulmonary embolism or aortic dissection. 2. Trace pericardial effusion, almost completely resolved since the prior exam. 3. Unchanged moderate size right pleural effusion with improved adjacent atelectasis in the posterior right lower lobe. There has been interval complete resolution of previously noted small left pleural effusion. 4. Mild coronary arterial calcifications. 5. Small hiatal hernia. Electronically authenticated by: NEHEMIAH MURRIETA Date: 10/18/2023 23:43 ECG Data Attestation: I personally reviewed and interpreted this ECG as follows: (EKG on my interpretation shows sinus rhythm with PVCs) Discharge Plan Discharge Stand Alone Forms: Portal Instructions Chief Complaint: Shortness of Breath/Dyspnea Clinical Impression: Pleural effusion, right Patient Disposition: Home, Self-Care Time of Disposition Decision: 23:51 Condition: Good Mode of Transportation: Private Vehicle Prescriptions / Home Meds: No Action albuterol sulfate 90 mcg/actuation HFA aerosol inhaler 2 puff INHALATION Q6H PRN (Reason: shortness of breath or wheezing) allopurinol 300 mg tablet 300 mg PO DAILY atorvastatin 10 mg tablet 10 mg PO QPM fluticasone propion-salmeterol 100-50 mcg/dose blister with device 1 inh INHALATION Q12H losartan 25 mg tablet 25 mg PO DAILY prednisone 10 mg tablet 10 mg PO BID Print Language: Albanian Instructions: Pleural Effusion (DC) Referrals: Dawit Lorenz DO [Primary Care Provider] - 1 week
[2023-10-18 20:41] LABS: Basophils Absolute Auto 0.1 10^3/uL (0.0-0.1); Basophils Percent Auto 0.8 % (0.2-2.0); Hematocrit 40.2 % (42.0-54.0); Hemoglobin 12.9 g/dL (14.0-18.0); Immature Granulocytes Abs Auto 0.06 10^3/uL (0.00-0.03); Immature Granulocytes Pct Auto 0.8 % (0.0-0.5); Lymphocytes Absolute Auto 1.8 10^3/uL (1.2-3.8); Lymphocytes Percent Auto 23.7 % (20.5-60.0); Mean Corpuscular HGB Conc 32.1 g/dL (29.9-35.2); Mean Corpuscular Hemoglobin 30.6 pg (25.9-34.0); Mean Corpuscular Volume 95.3 fL (80.0-94.0); Mean Platelet Volume 10.5 fL (9.5-13.5); Monocytes Absolute Auto 0.7 10^3/uL (0.3-0.8); Monocytes Percent Auto 9.2 % (1.7-12.0); Neutrophils Absolute Auto 4.9 10^3/uL (1.4-6.5); Neutrophils Percent Auto 65.5 % (43.0-75.0); Platelet Count 227 10^3/uL (150-450); Red Blood Count 4.22 10^6/uL (4.70-6.10); Red Cell Distribution Width 14.2 % (11.0-15.0); White Blood Count 7.5 10^3/uL (4.0-11.0)
[2023-10-18 20:52] LABS: Anion Gap 11.6; BUN Creatinine Ratio 20.6; Calcium 9.2 mg/dL (8.5-10.1); Carbon Dioxide 25.4 mmol/L (21.0-32.0); Chloride 105 mmol/L (98-107); Estimated GFR (African America >60 (>=60); Estimated GFR (Non-African Ame >60 (>=60); Glucose 149 mg/dL (74-106); Sodium 138 mmol/L (136-145)
--- NOTE | 2023-10-18 21:52 | CT_ITS ---
The [address] [address] Patient Name: SAV RAYMUNDO MRN: [id number] date: 1950 Sex: M Assigned Patient Location: ED.MAIN Current Patient Location: ED.MAIN Accession/Order Number: [id number] Exam Date: 10/18/2023 22:27 Report Date: 10/18/2023 23:43 At the request of: MIKE RAHMAN Procedure: CT angio chest EXAM: CT angio chest HISTORY: Short of breath, rule out PE COMPARISON: Chest x-ray, 10/18/2023, and CT chest, 08/15/2023. TECHNIQUE: IV contrast enhanced CT imaging the chest was performed using 98 mL of Omnipaque intravenous contrast. Sagittal and coronal reconstructions are provided. Dose reduction techniques were achieved by using automated exposure control and/or adjustment of mA and/or kV according to patient size and/or use of iterative reconstruction technique. FINDINGS: There is excellent enhancement of the pulmonary arteries. No acute pulmonary embolism is seen. Cardiac size is normal. There are fairly mild coronary arterial calcifications in the LAD and RCA. There is a trace pericardial effusion, almost completely resolved since the prior exam. Mild atherosclerotic calcifications are seen in the otherwise unremarkable thoracic aorta and arch vessels. There is no dissection or aneurysm. The thyroid gland appears normal. No thoracic adenopathy is seen. A moderate size layering right pleural effusion is not significantly changed with adjacent atelectasis in the posterior right lower lobe. There is very mild dependent atelectasis in the posterior left lower lobe with interval resolution of previously noted small left pleural effusion. Calcified granulomatous disease is noted. The lungs are otherwise clear. There is a small hiatal hernia. The included upper abdomen is otherwise unremarkable. The bony thorax is intact. CT/CT angio chest IMPRESSION: 1. No acute pulmonary embolism or aortic dissection. 2. Trace pericardial effusion, almost completely resolved since the prior exam. 3. Unchanged moderate size right pleural effusion with improved adjacent atelectasis in the posterior right lower lobe. There has been interval complete resolution of previously noted small left pleural effusion. 4. Mild coronary arterial calcifications. 5. Small hiatal hernia. Electronically authenticated by: NEHEMIAH MURRIETA Date: 10/18/2023 23:43
== END 2023-10-19 00:05 | disposition home or self-care (01) ==
PROVIDERS: Emergency Provider Emergency Medicine; PCP Internal Medicine
DX: J90 Pleural effusion, not elsewhere classified (principal); Z79.899 Other long term (current) drug therapy
CPT/HCPCS: 36415; 71045; 71275; 80048; 85025; 93005; 99285; Q9967

== ENCOUNTER 2024-08-12 16:16 | Emergency (ER) | payer MEDICARE, SELFPAY ==
[2024-08-12 16:19] VITALS: BP 133/88; PULSE 80; O2SAT 95; BMI 25.8
[2024-08-12 16:33] VITALS: TEMP 36.6
--- NOTE | 2024-08-12 17:41 | ED.GENADUL1 ---
HPI HPI - General Adult General Chief complaint: Extremity Problem, Nontraumatic Stated complaint: POSSIBLE BLOOD CLOT Time Seen by Provider: 08/12/24 16:23 Source: patient and family Mode of arrival: walk-in Limitations: no limitations History of Present Illness HPI narrative: Patient presents ED complaining of bilateral lower extremity swelling worse on the left. Patient states he was instructed to come into the nearest hospital to rule out DVT in both legs. Patient has a history of pleural effusions and gets drained every day. He said he is scheduled tomorrow morning for some more testing for his chest and abdomen, he is supposed to get special imaging that they have to go to the [facility] for. Patient states he is only here to get the ultrasounds done for the blood clots because they told him he could not wait until tomorrow for that portion. He denies increased shortness of breath. He denies chest pain. No syncope. Patient denies abdominal pain or distention. His legs do get swollen sometimes on and off however they have been worse for the past couple of days. He is on a diuretic takes it regularly as directed. No other complaints at this time Related Data Home Medications ?Medication ?Instructions ?Recorded ?Confirmed albuterol sulfate 90 mcg/actuation 2 puff inhalation Q6H PRN 08/15/23 08/15/23 aerosol inhaler shortness of breath or wheezing allopurinol 300 mg tablet 300 mg PO DAILY 08/15/23 08/15/23 atorvastatin 10 mg tablet 10 mg PO QPM 08/15/23 08/15/23 fluticasone 100 mcg-salmeterol 50 1 inh inhalation Q12H 08/15/23 08/15/23 mcg/dose blistr powdr for inhalation losartan 25 mg tablet 25 mg PO DAILY 08/15/23 08/15/23 prednisone 10 mg tablet 10 mg PO BID 08/15/23 08/15/23 Allergies Allergy/AdvReac Type Severity Reaction Status Date / Time tramadol Allergy Severe Hallucinati Verified 08/12/24 16:25 ng Opioid HPI Opioid Management Most Recent Opioid Data: No Data to Display Review of Systems ROS Status of ROS 10 or more systems reviewed and unremarkable except as noted in history and below PFSH PFSH Social History Little interest or pleasure in doing things: not at all Feeling down, depressed, or hopeless: not at all Exam Narrative Exam Narrative: Time Seen: [] Vital Signs: [Per nurse's notes.] General: [Alert] Skin: [Warm, dry, no rash.] Head: [Normocephalic, atraumatic.] Neck: [Supple, trachea midline.] Eye: [Pupils are equal, round and reactive to light, extraocular movements are intact, normal conjunctiva.] Ears, nose, mouth and throat: oral mucosa moist. Cardiovascular: [Regular rate and rhythm, no murmur.] Respiratory: [Lungs are clear to auscultation, respirations are non-labored, breath sounds are equal.] Chest wall: [No tenderness, no deformity.] Dressing in the right chest where he gets his thoracentesis Gastrointestinal: [Soft, nontender, non distended, normal bowel sounds.] MSK: 5 out of 5 muscle strength x 4 extremities no calf pain bilateral lower extremity pitting edema worse on the left normal distal pulses and sensation Psychiatric: [Cooperative, appropriate mood & affect.] Neurological: [Alert and oriented to person, place, time, and situation, no focal neurological deficit observed.] Constitutional Vital Signs, click to edit/add: Last Vital Signs Temp 97.9 F 08/12/24 16:33 Pulse 80 08/12/24 16:19 Resp 16 08/12/24 16:19 BP 133/88 08/12/24 16:19 Pulse Ox 95 08/12/24 16:19 O2 Del Method Room Air 08/12/24 16:19 Course Vital Signs Vital signs: Vital Signs Pulse Rate 80 08/12/24 16:19 Respiratory Rate 16 08/12/24 16:19 Blood Pressure 133/88 08/12/24 16:19 Pulse Oximetry 95 08/12/24 16:19 Oxygen Delivery Method Room Air 08/12/24 16:19 Temperature 97.9 F 08/12/24 16:33 Pulse Rate 80 08/12/24 16:19 Respiratory Rate 16 08/12/24 16:19 Blood Pressure 133/88 08/12/24 16:19 Pulse Oximetry 95 08/12/24 16:19 Oxygen Delivery Method Room Air 08/12/24 16:19 Medical Decision Making MDM Narrative Medical decision making narrative: Ultrasounds are negative for any DVT. Patient is stable for discharge home. Vital stable. Patient has an appointment tomorrow for follow-up and additional imaging. Return to ED if worsening symptoms or increased shortness of breath or chest pain. Otherwise follow-up outpatient as scheduled. Patient is comfortable care plan for home. Differential Diagnosis Differential Diagnosis: CHF, edema, DVT, PE Imaging Data Chest x-ray: Attestation: I have reviewed the pertinent imaging results. My impression: DVT study negative Discharge Plan Discharge Chief Complaint: Extremity Problem, Nontraumatic Clinical Impression: Leg edema Patient Disposition: Home, Self-Care Time of Disposition Decision: 18:37 Condition: Good Mode of Transportation: Private Vehicle Prescriptions / Home Meds: No Action albuterol sulfate 90 mcg/actuation HFA aerosol inhaler 2 puff INHALATION Q6H PRN (Reason: shortness of breath or wheezing) allopurinol 300 mg tablet 300 mg PO DAILY atorvastatin 10 mg tablet 10 mg PO QPM fluticasone propion-salmeterol 100-50 mcg/dose blister with device 1 inh INHALATION Q12H losartan 25 mg tablet 25 mg PO DAILY prednisone 10 mg tablet 10 mg PO BID Print Language: Citizen Of [place] Instructions: Leg Edema (ED) Referrals: Dawit Lorenz DO [Primary Care Provider] - 1 week
[2024-08-12 18:50] VITALS: BP 142/83; PULSE 65; O2SAT 99
== END 2024-08-12 18:50 | disposition home or self-care (01) ==
PROVIDERS: Emergency Provider Emergency Medicine; PCP Internal Medicine
DX: R60.0 Localized edema (principal); Z79.899 Other long term (current) drug therapy
CPT/HCPCS: 93970; 99284

== ENCOUNTER 2024-08-30 18:16 | Observation (INO) | payer MEDICARE, SELFPAY ==
[2024-08-30] VITALS (19 sets, daily range): BP systolic 104–127; BP diastolic 71–79; PULSE 78–90; TEMP 36.4–36.5; O2SAT 97–100; BMI 24.4; BMI 24.8
--- OUTSIDE RECORDS SUMMARY | 2024-08-30 18:26 | XMS_ITS | CCD ---
Author Organization [facility] Care Team Providers Care Supervisor Photostat Name Role Phone Ball, Yuli E Unavailable Ball, Yuli E Unavailable Karthik Calloway Unavailable Unavailable Primary Care Provider Unavailabl e Loida Yuli E Primary Care Provider Loida, Yuli E Unavailable Karthik Calloway Unavailable [phone] Loida Yuli E Primary Care Provider [phone] Loida, Yuli E Unavailable Karthik Calloway Unavailable Unavailabl e Ball DO, Yuli E Primary Care Provider Ball DO, Yuli E Unavailable [phone] Karthik Calloway MD Unavailable Unavail able REQUEST, NONE LISTED Consulting Unavaila ble REQUEST, DR RUBIO LISTED Admitting Unavaila ble BALL, DR ROLDAN Primary Care Unavailable REQUEST, NONE LISTED Attending Unavaila ble BALL, DR ROLDAN Attending Unavailable BALL, DR ROLDAN Consulting Unavailable BALL, DR ROLDAN Admitting Unavailable Ball DO, Yuli E Primary Care Provider Ball DO, Yuli E Unavailable Karthik Calloway MD Unavailable Unavail able Loida, Yuli Unavailable MARGIE EDOUARD Referring Unavailab le MARGIE EDOUARD Admitting Unavailab le LOIDA, YULI E Primary Care Unavailable LOIDA, YULI E Primary Care Unavailable GRECIA HILL Attending Unavailable LOIDA YULI E Primary Care Unavailable MARGIE EDOUARD Attending Unavailab le LOIDA, YULI E Primary Care Unavailable NENA BYNUM Attending Unavailable LOIDA YULI E Primary Care Unavailable NENA BYNUM Admitting Unavailable NENA BYNUM Referring Unavailable LOIDA, YULI E Primary Care Unavailable MARGIE EDOUARD Attending Unavailab le BALL, YULI E Primary Care Unavailable MARGIE EDOUARD Attending Unavailab le BALL, YULI E Primary Care Unavailable MARGIE EDOUARD Referring Unavailab le STEGINSKY, MARGIE FERNANDEZ Admitting Unavailab le STEGINSKY, MARGIE FERNANDEZ Referring Unavailab le STEGINSKY, MARGIE FERNANDEZ Admitting Unavailab le BALL, YULI E Primary Care Unavailable MARGIE EDOUARD Referring Unavailab le STEGINSKY, MARGIE FERNANDEZ Admitting Unavailab le BALL, YULI E Primary Care Unavailable Samsa, DO Calin P Attending Provider [phone] Samsa, Calin P Admitting Unavailable Samsa, Calin P Attending Unavailable Samsa, Calin P Admitting Unavailable Samsa, Calin P Attending Unavailable Samsa, Calin P Admitting Unavailable Samsa, Calin P Attending Unavailable Jere Sales Unavailable Yuli Mariscal DO E Primary Care Provider Samsa DO, Calin P Unavailable ZAYOVANIELLA RUMA Referring Unavailable BALL, YULI E Primary Care Unavailable JAS CHRISTINAE Attending Unavailable ZAVARELLA, RUMA Referring Unavailable BALL, YULI E Primary Care Unavailable TITA LANDRY Attending Unavailable TITA LANDRY Referring Unavailable LOIDA, YULI E Primary Care Unavailable TITA LANDRY Attending Unavailable TITA LANDRY Referring Unavailable LOIDA, YULI E Primary Care Unavailable TITA LANDRY Attending Unavailable TITA LANDRY Referring Unavailable BALL, YULI E Primary Care Unavailable TITA LANDRY Attending Unavailable LOIDA, YULI E Primary Care Unavailable REMIGIO, SUDISH Referring Unavailable LOIDA, YULI E Primary Care Unavailable REMIGIO, SUDISH Referring Unavailable ARSENIO, UDDALAK Attending Unavailable STEPHANE DOUGLASDAARLINK Referring Unavailable BALL, YULI E Primary Care Unavailable KATERINA ADLER Referring Unavailable BALL, YULI E Primary Care Unavailable YEHUDA DIAL Unavailable ISAKOV, JOSE ANTONIO Admitting Unavailable ISANDIE, JOSE ANTONIO Attending Unavailable LOIDA, YULI E Primary Care Unavailable BALL, YULI E Primary Care Unavailable ADLERUNIQUE BENNETTIE Referring Unavailable ARSENIO, UDDALAK Referring Unavailable ZAVARELLA, RUMA Attending Unavailable BALL, YULI E Primary Care Unavailable ZAVARELLA, RUMA Referring Unavailable BALL, YULI E Primary Care Unavailable GRIS, BRIEANNE Referring Unavailable BALL, YULI E Primary Care Unavailable GRIS, BRIEANNE Referring Unavailable BALL, YULI E Primary Care Unavailable GRIS, BRIEANNE Referring Unavailable BALL, YULI E Primary Care Unavailable ARSENIO, UDDALAK Referring Unavailable BALL, YULI E Primary Care Unavailable GRIS, BRIEANNE Attending Unavailable GRIS, BRIEANNE Referring Unavailable BALL, YULI E Primary Care Unavailable ARSENIO, UDDALAK Referring Unavailable BALL, YULI E Primary Care Unavailable ARSENIO, UDDALAK Referring Unavailable BALL, YULI E Primary Care Unavailable JULIAN BATISTA Attending Unavailable NASEER, SUE Referring Unavailable BALL, YULI E Primary Care Unavailable Henrry BECERRIL, Jere Marie Unavailable [phone] Unavailable Primary Care Provider Unavailabl e BALL, YULI E Primary Care Unavailable NASEER, SUE Attending Unavailable BALL, YULI E Primary Care Unavailable ISAKOV, JOSE ANTONIO Referring Unavailable BALL, YULI E Primary Care Unavailable BALL, YULI E Primary Care Unavailable NASEER, SUE Referring Unavailable BALL, YULI E Primary Care Unavailable STEFFEN MAHONEY Referring Unavailabl e NASEER, SUE Attending Unavailable NASEER, SUE Referring Unavailable BALL, YULI E Primary Care Unavailable BOBBY BOJORQUEZ Attending Unavailable NASEER, SUE Referring Unavailable BALL, YULI E Primary Care Unavailable BALL, YULI E Primary Care Unavailable ARSENIO, UDDALAK Attending Unavailable BALL, YULI E Primary Care Unavailable ARSENIO, UDDALAK Referring Unavailable BALL, YULI E Primary Care Unavailable NASEER, SUE Referring Unavailable BALL, YULI E Primary Care Unavailable ARSENIO, UDDALAK Referring Unavailable BALL, YULI E Primary Care Unavailable STEFFEN MAHONEY Attending Unavailabl e GRIS, BRIEANNE Referring Unavailable BALL, YULI E Primary Care Unavailable STEFFEN MAHONEY Attending Unavailabl e BALL, YULI E Primary Care Unavailable NARENDRA GUEVARA Attending Unavailable BALL, YULI E Primary Care Unavailable BALL, YULI E Primary Care Unavailable RIGGS, TRISTON Referring Unavailable BALL, YULI E Primary Care Unavailable EZEQUIELCEDRICDELLA Paige Attending Unavailable NASEER, SUE Attending Unavailable BALL, YULI E Primary Care Unavailable REMIGIO, SUDISH Referring Unavailable BALL, YULI E Primary Care Unavailable BALL, YULI E Primary Care Unavailable REMIGIO, SUDISH Referring Unavailable BALL, YULI E Primary Care Unavailable RIGGS, TRISTON Admitting Unavailable RIGGS, TRISTON Attending Unavailable REMIGIO, SUDISH Attending Unavailable BALL, YULI E Primary Care Unavailable BALL, YULI E Primary Care Unavailable GRIS, ANUSHKAE Referring Unavailable BALL, YULI E Primary Care Unavailable KATERINA CONTRERAS Attending Unavailable BALL, YULI E Primary Care Unavailable RIGGS, TRISTON Referring Unavailable REMIGIO, SUDISH Attending Unavailable BALL, YULI E Primary Care Unavailable REMIGIO, SUDISH Referring Unavailable BALL, YULI E Primary Care Unavailable REMIGIO, SUDISH Referring Unavailable BALL, YULI E Primary Care Unavailable AYLIN, RENDELL Admitting Unavailable AYLIN, RENDELL Attending Unavailable BALL, YULI E Primary Care Unavailable ISAKOV, JOSE ANTONIO Referring Unavailable BALL, YULI E Primary Care Unavailable BALL, YULI E Primary Care Unavailable DEVI DAISYSTEFFEN SCHNEIDER Referring Unavailabl e REMIGIO, SUDISH Referring Unavailable BALL, YULI E Primary Care Unavailable REMIGIO, SUDISH Referring Unavailable BALL, YULI E Primary Care Unavailable REMIGIO, SUDISH Referring Unavailable BALL, YULI E Primary Care Unavailable BALL, YULI E Primary Care Unavailable ARSENIO, UDDALAK Referring Unavailable BALL, YULI E Primary Care Unavailable RIGGS, TRISTON Referring Unavailable BALL, YULI E Primary Care Unavailable REMIGIO, SUDISH Attending Unavailable REMIGIO, SUDISH Admitting Unavailable BALL, YULI E Primary Care Unavailable BALL, YULI E Primary Care Unavailable ARSENIO, UDDALAK Referring Unavailable ANNE-MARIE BAJWA Attending Unavailable PETITTRAJI Salcido Attending Unavailable PETITTIRAJI Attending Unavailable Allergies Allergy Classification Reported Allergen(s) Allergy Type Date of Onset Reaction(s) Facility Opioid Agonists (1 source) traMADol Drug Allergy 1 Mental Status Change [facility] (20 sources) acetaminophen / oxyCODONE; Translations: [OXYCODONE-ACETAM INOPHEN] Propensity to adverse reactions to drug 6 Other (See Comments), Unknown [facility] Work Phone: (20 sources) traMADol; Translations: [TRAMADOL] Propensity to adverse reactions to drug 5 Shortness Of Breath, Mental Status Change, Unknown [facility] Work Phone: (1 source) traMADol Drug Allergy 6 [facility] (1 source) traMADol Drug Allergy 4 [facility] Repository Medications Current Medications Medication Drug Class(es) Dates Sig (Normalized) Sig (Original) AeroChamber Mini Chamber - (1 source) Start: 07-23-2023 AeroChamber Mini Chamber - Use w/ MDI inhaled every 6 hours as needed for 30 days Jul, Active [id number] actuat albuterol 0.09 mg/actuat metered dose [...] Take 300 mg by mouth once daily. 10/21/2020 Active amoxicillin 500 mg oral capsule (20 sources) Penicillin-class Antibacterial Start: 01-28-2024 amoxicillin (AMOXIL) 500 mg capsule 01/28/2024 Active Start: 01-28-2024 amoxicillin (A MOXIL) 500 MG capsule Take 4 capsules one hour prior to dental procedure/cleaning . 4 capsule 1 01/28/2024 Active amoxicillin 875 mg / clavulanate 125 mg oral tablet (4 sources) Penicillin-class Antibacterial Start: 08-19-2023 take 1 tablet by mouth every twelve hours Amoxicillin-Pot Clavulanate Active 1 TAB PO Every 12 hours 14 7 August 19, 2023 1:00am ASCORBATE CALCIUM (VITAMIN C ORAL) (17 sources) take 1 tablet by mouth once daily in the morning ASCORBATE CALCIUM (VITAMIN C ORAL) Take 1 tablet by mouth every morning . 0 Active take 1 tablet by av th once daily in the morning ASCORBATE CALCIUM (VITAMIN C ORAL) Take 1 tablet by mouth every morning . Active ascorbic acid 500 mg oral tablet (16 sources) Vitamin C take 2 tablets by mouth once daily ascorbic acid, vitamin C, (VITAMIN C) 500 mg tablet Take 1,000 mg by mouth once daily. Active aspirin 81 mg delayed release oral tablet (20 sources) Platelet Aggregation Inhibitor, Nonsteroidal Anti-inflammatory Drug take 1 tablet by mouth at bedtime aspirin 81 MG EC tablet Take 81 mg by mouth at bedtime. Active atorvastatin 10 mg oral tablet (20 sources) HMG-CoA Reductase Inhibitor Start: 08-05-19 Atorvastatin Active 0 .ROUTE .COMPLEX 90 August 05, 2023 8:58pm TAKE 1 TABLET DAILY IN THE EVENING Start: 10-21-2020 End: 08-05-2023 take 1 tablet by mouth once daily atorvastatin (LIPITOR) 10 mg tablet Take 1 tablet by mouth once daily. 10/31/2020 Active benzonatate 100 mg oral capsule (8 sources) Non-narcotic Antitussive Start: 08-13-2023 take 100 mg by mouth three times daily Benzonatate Active 100 MG PO Three times daily August 13, 2023 1:00am Start: 07-07-2023 take 1 capsule by mo [facility] every eight hours Benzonatate 100 MG 1 capsule as needed Orally Three times a day for 15 days Jun, Active Biotin (18 sources) take 1 tablet by av once daily in the morning BIOTIN ORAL Take 1 tablet by mouth every morning . 0 Active take 1 tablet by av th once daily in the morning BIOTIN ORAL Take 1 tablet by mouth every morning . Active take 1 tablet by av once daily in the morning BIOTIN ORAL Take 1 tablet by mouth every morning . Active Calcium (20 sources) Phosphate Binder, Calcium calcium idn-fkv-I0-Zn-electron microscopist-kian 250 mg-40 mg- 125 unit-3.75mg tab Take by mouth. Active calcium polycarbophil 625 mg oral tablet (18 sources) take 1 tablet by mouth once daily in the morning polycarbophil (FIBERCON) 625 mg tablet Take 1 (one) tablet (625 mg total) by mouth every morning . Active ciprofloxacin 3 mg/ml ophthalmic solution (9 sources) Quinolone Antimicrobial Start: 2022 take 1 drop(s) into the eye(s) four times daily ciprofloxacin HCl (CILOXAN) 0.3 % ophthalmic solution INSTILL 1 DROP INTO AFFECTED EYE 4 TIMES DAILY 10/04/2022 Active codeine phosphate 2 mg/ml / guaiFENesin 20 mg/ml oral solution (6 sources) Opioid Agonist Start: 2023 take 1 mL by mouth every six hours Codeine-Guaifenesin Active 10 ML PO Every 6 hours August 13, 2023 1:00am Start: 07-10-2023 take 10 mL by mouth every six hours as needed for cough guaiFENesin-Codeine 100-10 MG/5ML 10 mL as needed Orally every 6 hours as needed for cough for 7 days Jun, Active dexamethasone 1 mg/ml / tobramycin 3 mg/ml ophthalmic suspension (1 source) Aminoglycoside Antibacterial, Corticosteroid Start: 08-12-2024 End: 08-26-2024 tobramycin-dexAMETHasone (Tobradex) ophthalmic suspension Indications: Chalazion of left upper eyelid Administer 1 drop into the left eye in the morning and 1 drop at noon and 1 drop in the evening and 1 drop before bedtime. Do all this for 14 days. 5 mL 1 08/12/2024 08/26/2024 Active diclofenac sodium 0.01 mg/mg topical gel (20 sources) Nonsteroidal Anti-inflammatory Drug Start: 07-13-2024 diclofenac sodium 1% (Voltaren Arthritis Pain) 1 % Gel Apply 2 (two) g topically 4 (four) times a day as needed for pain Apply 2 grams to affected area up to 4 times a day as needed for pain. . 300 g 2 07/13/2024 Active Start: 07-09-2024 End: 07-10-2024 diclofenac sodium 1% (Voltar en) 1 % Gel Apply 2 (two) g topically 4 (four) times a day Apply 2 grams to affected area up to 4 times a day as needed PRN pain. . 900 g 2 07/09/2024 07/10/2024 Discontinued (Error) Start: 01-22-2024 diclofenac (VO LTAREN) 1 % topical gel 01/22/2024 Active Start: 05-13-2023 End: 07-08-2024 diclofenac sodium (Voltaren) 1 % Gel Apply 2 (two) g topically 4 (four) times a day Apply 2 grams to affected area up to 4 times a day as needed PRN pain. . 900 g 2 05/13/2023 07/08/2024 Discontinued (Reorder (Suppress CancelRx Message to Pharmacy)) Start: 08-30-2022 End: 08-30-2022 diclofenac sodium (Voltaren) 1 % Gel Apply 2 (two) g topically 4 (four) times a day Apply 2 grams to affected area up to 4 times a day as needed PRN pain. . 300 g 2 08/31/2022 Active erythromycin 0.005 mg/mg ophthalmic ointment (4 sources) Macrolide, Macrolide Antimicrobial Start: 07-21-2024 End: 07-31-2024 erythromycin (ROMYCIN) 5 mg/gram (0.5 %) ophthalmic ointment Use 1 application in both eyes two times a day for 10 days. into affected eye(s). 3.5 g 07/21/2024 07/31/2024 Active fluorouracil 50 mg/ml topical cream (15 sources) Nucleoside Metabolic Inhibitor Start: 07-12-2020 fluorouraciL (EFUDEX ) 5 % cream 07/12/2020 Active GUAIFENESIN/DEXTROMETH ORPHAN (MUCINEX DM ORAL) (17 sources) GUAIFENESIN/DEXT ROMET HORPHAN (MUCINEX DM ORAL) Take by mouth. 0 Active GUAIFENESIN/DEXT ROMETHORPHAN (MUCINEX DM ORAL) Take by mouth. Active guaifenesin/dextromethorphan (MUCINEX DM ORAL) (16 sources) guaifenesin/dext romethorphan (MUCINEX DM ORAL) Take by mouth two times a day. Active ketorolac tromethamine 5 mg/ ml ophthalmic solution (9 sources) Nonsteroidal Anti-inflammator y Drug, Cyclooxygenase Inhibitor St ar t: take 2 drop(s) into the eye(s) twice daily ketorolac (ACULAR) 0.5 % ophthalmic solution INSTILL 2 DROPS INTO AFFECTED EYE TWICE DAILY 10/01/2022 Active loratadine 10 mg oral tablet (20 sources) take 1 tablet by mouth once daily loratadine (CLARITIN) 10 mg tablet Take 10 mg by mouth once daily. Active meloxicam 15 mg oral tablet (20 sources) Nonsteroidal Anti-inflammator y Drug St ar t: 02 0 3- 21 En d: - 24 meloxicam (MOBIC) 15 MG tablet Take 1 (one) tablet (15 mg total) by mouth as needed . 90 tablet 05/13/2023 Active Start: 02-25-2017 End: 02-25-2018 take 1 [...] 1-2 tabs prn . 0 07/20/2020 Discontinued metOLazone 5 mg oral tablet (5 sources) Thiazide-like Diuretic Start: 08-21-2024 End: 09-20-2024 take 1 tablet by mouth once daily metOLazone (ZAROXOLYN) 5 mg tablet Take 1 tablet by mouth once daily. 30 tablet 08/21/2024 09/20/2024 Active multivit-min/ferr ous fumarate (MULTI VITAMIN ORAL) (16 sources) take 1 tablet by mouth once daily multivit-min/abraham us fumarate (MULTI VITAMIN ORAL) Take 1 tablet by mouth once daily. Active multivit-min/anna jeanna fumarate (MULTI VITAMIN ORAL) Take by mouth. Active multivitamin (multivitamin) per tablet (5 sources) take 1 tablet by av th once daily in the morning multivitamin (multivitamin) per tablet Take 1 tablet by mouth every morning . 0 Active take 1 tablet by av th once daily in the morning multivitamin (multivitamin) per tablet T kerry 1 tablet by mouth every morning . Active multivitamin (THERAGRAN) per tablet (12 sources) take 1 tablet by av th once daily in the morning multivitamin (THERAGRAN) per tablet Take 1 (one) tablet by mouth every morning . Active take 1 tablet by av th once daily in the morning multivitamin (THERAGRAN) per tablet Take 1 (one) tablet by mouth every morning . 0 Active Multivitamin Tablet (1 source) take 1 tablet by mouth once daily in the morning multivitamin (multivitamin) per tablet Take 1 tablet by mouth every morning . Active mupirocin 0.02 mg/mg topical ointment (12 sources) RNA Synthetase Inhibitor Antibacterial Start: 11-12-19 mupirocin (BACTROBAN) 2 % ointment Apply a small amount in each nostril using a cotton swab twice the day before surgery and once the morning of surgery. 22 g 0 11/12/2023 Active Start: 07-11-2022 Mupirocin 2 % 1 application Externally Twice a day for 7 days Jun, Not-Taking/PRN Conway 3 (11 sources) Conway 3 Active Conway-3 Fatty Acids (4 sources) Start: take 500 mg by mouth once daily Conway-3 Fatty Acids Active 500 MG PO Daily August 13, 2023 1:00am pantoprazole 40 mg delayed release oral tablet (20 sources) Proton Pump Inhibitor Start: End: take 1 tablet by mouth twice daily pantoprazole DR (PROTONIX) 40 mg tablet Take 1 tablet by mouth two times a day. 180 tablet 04/28/2024 Active take 1 tablet by mouth once mariann y pantoprazole DR (PROTONIX) 40 mg tablet Take 40 mg by mouth once daily. Active microencapsulated potassium chloride 20 meq extended release oral tablet (20 sources) Start: 05-20-2024 End: 09-10-2024 take 2 tablets by mouth twice daily potassium chloride ER (KLOR-CON M20) 20 mEq tablet Indications: Hypokalemia Take 2 tablets by mouth two times a day. 360 tablet 06/12/2024 09/10/2024 Active Start: 01-15-2024 End: 04-14-2024 take 1 tablet by mouth three times daily potassium chloride ER (KLOR-CON) 20 mEq tablet Indications: Recurrent 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 Take 1 tablet by mouth three times a day. 270 tablet 01/15/2024 04/14/2024 Active Start: 12-26-2023 End: 01-25-2024 take 1 tablet by mouth twice daily potassium chloride ER (KLOR-CON) 20 mEq tablet Take 1 tablet by mouth two times a day. 60 tablet 1 12/26/2023 01/15/2024 Discontinued Start: 11-29-2023 End: 12-04-2023 take 1 tablet by mouth once daily potassium chloride ER (KLOR-CON) 20 mEq tablet Take 1 tablet by mouth once daily for 5 days. 5 tablet 0 11/29/2023 12/04/2023 prednisoLONE acetate 10 mg/ml ophthalmic suspension (9 sources) Corticosteroid Start: 10-01-2022 prednisoLONE acetate (PRED FORTE) 1 % ophthalmic suspension INSTILL 1 DROP INTO AFFECTED EYE INTO AFFECTED EYE 4 TIMES DAILY DIRECTED 10/01/2022 Active quiNINE sulfate 324 mg oral capsule (10 sources) Antimalarial Start: 07-21-2024 End: 08-20-2024 take 1 capsule by mouth twice daily quiNINE 324 mg capsule Indications: Muscle cramps Take 1 capsule by mouth two times a day. 60 capsule 2 07/21/2024 08/20/2024 Active raNITIdine 300 mg oral tablet (15 sources) Histamine-2 Receptor Antagonist Start: 10-21-2020 End: [...] by mouth once daily. 0 10/21/2020 Active torsemide 100 mg oral tablet (20 sources) Loop Diuretic Start: 05-13-2024 End: 09-10-2024 take 1 tablet by mouth once daily torsemide (DEMADEX) 100 mg tablet Indications: Recurrent 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 , Anasarca Take 1 tablet by mouth once daily. 90 tablet 06/12/2024 09/10/2024 Active vit A-vit C-vit Q-metl-jknkoh (EYE VITAMIN AND MINERALS) 7,160-113-100 ktiw-kt-qkzv Tab (4 sources) take 1 tablet by mouth once daily in the morning vit A-vit C-vit D-lxrw-pdpqjd (EYE VITAMIN AND MINERALS) 7,160-113-100 okwq-ye-mlok Tab Take 1 tablet by mouth every morning . 0 Active vit A-vit C-vit F-bssv-cuxsky 7,160-113-100 myxp-tg-twyw Tab (12 sources) take 1 tablet by mouth once daily in the morning vit A-vit C-vit F-fosn-dplyhm 7,160-113-100 cmps-jv-icvp Tab Take 1 tablet by mouth every morning . Active take 1 tablet by av th once daily in the morning vit A-vit C-vit Z-zlwy-ohrysf 7,160-113- 100 lbgd-zw-jvyu Tab Take 1 tablet by mouth every morning . 0 Active Vitamin C Oral (1 source) take 1 tablet by av th once daily in the morning ASCORBATE CALCIUM (VITAMIN C ORAL) Take 1 tablet by mouth every morning . Active Vit A 7,160 Unit-Vit C 113 Mg-Vit E 100 Pgtx-Hfms-Zmsixc Tablet (2 sources) take 1 tablet by av th once daily in the morning vit A-vit C-vit I-suoz-zxhnta (EYE VITAMIN AND MINERALS) 7,160-113-100 eobt-xp-leby Tab Take 1 tablet by mouth every morning . Active Completed/Discontinued Medications Medication Drug Class(es) Dates Sig (Normalized) Sig (Original) acetaminophen 500 mg oral tablet (20 sources) Start: 11-23-2023 End: 05-18-2024 take 2 tablets by mouth every six hours acetaminophen (TYLENOL) 500 mg tablet Take 2 tablets by mouth every 6 hours. 11/23/2023 05/18/2024 Discontinued albuterol 0.833 mg/ml / ipratropium bromide 0.167 mg/ml inhalation solution (20 sources) Anticholinergic, beta2-Adrenergic Agonist Start: 11-23-2023 End: 05-13-2024 take 3 mL by inhalation every six hours as needed ipratropium-albute rol (DUONEB) 0.5 mg-3 mg(2.5 mg base)/3 mL nebu Inhale 3 mL as instructed every 6 hours as needed for wheezing/shortness of breath. 360 mL 11/23/2023 05/13/2024 Discontinued amylase [id number] unt / lipase [id number] unt / protease [id number] unt delayed release oral capsule (9 sources) Start: 06-12-2024 End: 07-21-2024 take 2 capsules by mouth three times daily at mealtime tjvece-yrqebfjw-ja ylase (CREON) 36,000-114,000- 180,000 unit delayed release capsule Indications: Exocrine pancreatic insufficiency Take 2 capsules by mouth three times a day with meals. 200 capsule 1 06/12/2024 07/21/2024 Discontinued azithromycin 250 mg oral tablet (20 sources) Macrolide Antimicrobial Start: 11-15-2022 Azithromycin 250 MG as directed Orally daily for 5 days May, Not-Taking/PRN budesonide 3 mg delayed release oral capsule (20 sources) Corticosteroid Start: 04-30-2024 End: 07-20-2024 take 3 capsules by mouth once daily, then take 2 capsules by mouth once daily, then take 1 capsule by mouth once daily budesonide, enteric coated (ENTOCORT EC) 3 mg 24 hr capsule Take 3 capsules by mouth once daily for 60 days, THEN 2 capsules once daily for 15 days, THEN 1 capsule once daily for 7 days. 217 capsule 04/30/2024 07/20/2024 calcium carbonate 1250 mg oral tablet (20 sources) Start: 12-26-2023 End: 05-13-2024 take 1 tablet by mouth twice daily calcium carbonate (OS-ELIZABETH 500) 500 mg calcium (1,250 mg) tablet Take 1 tablet by mouth two times a day. 180 tablet 12/26/2023 05/13/2024 Discontinued JCEOILP-MAMIVRITW-K INC ORAL (18 sources) End: 05-18-2024 CALCIUM-MAGNESIUM- ZINC ORAL Take by mouth. 05/18/2024 Discontinued CALCIUM-MAGNESIU M-ZINC ORAL Take by mouth. Active cephalexin 500 mg oral capsule (20 sources) Cephalosporin Antibacterial Start: 01-10-2023 take 1 capsule by mouth every eight hours Cephalexin 500 MG 1 capsule Orally tid for 5 days Dec, Not-Taking/PRN Start: 07-11-2022 take 1 capsule by [facility] twice daily as needed Cephalexin 500 MG 1 capsule Orally twice daily for 7 days Jun, Not-Taking/PRN doxycycline hyclate 100 mg oral capsule (11 sources) Tetracycline-class Drug Start: 06-24-2022 take 1 capsule by mouth every twelve hours Doxycycline Hyclate 100 MG 1 capsule Orally Twice a day for 7 days Jun, Not-Taking/PRN enteric contrast (will be provided with radiology test) (2 sources) Start: 04-20-2024 End: 04-21-2024 enteric contrast (will be provided with radiology test) Indications: Diarrhea, unspecified type For CT ENTEROGRAPHY W IVCON order Administer, As Directed One Time Only, via Oral, Rectal, both Oral and Rectal, Enteric Tube, Stoma or Indwelling Catheter, Enteric Contrast as designated per enteric contrast guidelines. 1 Each 04/20/2024 04/21/2024 fluticasone propionate 0.05 mg/actuat metered dose nasal spray (5 sources) Corticosteroid Start: 12-26-2023 End: 01-25-2024 take 2 spray(s) nasal route once daily at bedtime fluticasone (FLONASE) 50 mcg/actuation nasal spray Use 2 Sprays in each nostril daily at bedtime. 16 g 1 12/26/2023 01/15/2024 Discontinued Fluticasone Propion-Salmeter ol (12 sources) Corticosteroid, beta2-Adrenergic [...] 06, 2023 1:00am August 07, 2023 10:58am furosemide 40 mg oral tablet (20 sources) Loop Diuretic Start: 12-27-2023 End: 05-13-2024 take 1 tablet by mouth once daily furosemide (LASIX) 80 mg tablet Indications: Recurrent 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 Take 1 tablet by mouth once daily. 90 tablet 02/12/2024 05/13/2024 Discontinued Start: 12-26-2023 End: 05-13-2024 take 1 tablet by mouth once daily in the evening furosemide (LASIX) 40 mg tablet Indications: Recurrent 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 Take 1 tablet by mouth once daily. At 2 pm 90 tablet 02/12/2024 05/13/2024 Discontinued Start: 11-29-2023 End: 12-26-2023 take 1 tablet by mouth once daily furosemide (LASIX) 20 mg tablet Take 1 tablet by mouth once daily for 5 days. 5 tablet 0 11/29/2023 12/26/2023 Discontinued hydroxychloroquine sulfate 200 mg oral tablet (20 sources) Antimalarial, Antirheumatic Agent Start: 02-12-2024 End: 05-13-2024 take 1 tablet by mouth twice daily hydrOXYchloroQUINE (PLAQUENIL) 200 mg tablet Indications: Recurrent 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 Take 1 tablet by mouth two times a day. 180 tablet 02/12/2024 05/13/2024 Discontinued Start: 12-27-2023 End: 02-12-2024 take 1 tablet by mouth once hydrOXYchloroQUINE (PLAQUE NIL) 200 mg tablet Indications: Recurrent 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 , Pleural effusion Take 1 tablet by mouth every afternoon. 90 tablet 02/12/2024 02/12/2024 Discontinued iv contrast (will be provide d with radiology test) (20 sources) Start: 04-20-2024 End: 04-21-2024 iv contrast (will be provide d with radiology test) Indications: Diarrhea, unspecified type CT Enterography W Inject, intravenously, once for 1 dose.No IV access, insert saline lock prior to the beginning of sedation, infusion, injection of imaging exam. Discontinue saline lock post exam. If Pt. has a central line or IVAD, may access for administration according to line specific nursing protocol. Once exam is complete flush line and de-access according to line specific nursing protocol in the CT contrast administration guidelines link. 1 Each 04/20/2024 04/21/2024 Start: 03-17-2024 End: 05-18-2024 iv contrast (will be provide d with radiology test) CT Chest W -Inject, intravenously, once for 1 dose.No IV access, insert saline lock prior to the beginning of sedation, infusion, injection of imaging exam. Discontinue saline lock post exam. If Pt. has a central line or IVAD, may access for administration according to line specific nursing protocol. Once exam is complete flush line and de-access according to line specific nursing protocol in the CT contrast administration guidelines link. 1 Each 03/17/2024 05/18/2024 Discontinued Start: 03-17-2024 iv contrast (w ill be provided with radiology test) CT Chest W -Inject, intravenously, once for 1 dose.No IV access, insert saline lock prior to the beginning of sedation, infusion, injection of imaging exam. Discontinue saline lock post exam. If Pt. has a central line or IVAD, may access for administration according to line specific nursing protocol. Once exam is complete flush line and de-access according to line specific nursing protocol in the CT contrast administration guidelines link. 1 Each 03/17/2024 Active lidocaine 0.04 mg/mg medicated patch (11 sources) Antiarrhythmic, Amide Local Anesthetic Start: 11-24-2023 End: 12-20-2023 apply 1 dose transdermal route once daily lidocaine (SALONPAS) 4 % patch Apply 1 Patch as directed once daily. 0 11/24/2023 12/20/2023 Discontinued losartan potassium 25 mg oral tablet (20 sources) Angiotensin 2 Receptor Masha Start: 12-23-2023 End: 12-26-2023 losartan (COZAAR) 25 mg tablet Take 1 tablet by mouth once daily. Patient should start on December 23, 2023. 0 12/23/2023 12/26/2023 Discontinued Start: 12-23-2023 losartan (COZA AR) 25 mg tablet Take 1 tablet by mouth once daily. Patient should start on December 23, 2023. 0 12/23/2023 Suspended Start: 12-23-2023 losartan (COZA AR) 25 mg tablet Take 1 tablet by mouth once daily. Patient should start on December 23, 2023. 0 12/23/2023 Active Start: 12-23-2023 losartan (COZA AR) 25 mg tablet Take 1 tablet by mouth once daily. Patient should start on December 23, 2023. 0 12/23/2023 Active Start: 12-23-2023 losartan (COZA AR) 25 mg tablet Take 1 tablet by mouth once daily. Patient should start on December 23, 2023. 0 12/23/2023 Active Start: 12-23-2023 losartan (COZA AR) 25 mg tablet Take 1 tablet by mouth once daily. Patient should start on December 23, 2023. 0 12/23/2023 Active Start: 12-23-2023 losartan (COZA AR) 25 mg tablet Take 1 tablet by mouth once daily. Patient should start on December 23, 2023. 0 12/23/2023 Active Start: 12-23-2023 losartan (COZA AR) 25 mg tablet Take 1 tablet by mouth once daily. Patient should start on December 23, 2023. 0 12/23/2023 Active Start: 12-23-2023 losartan (COZA AR) 25 mg tablet Take 1 tablet by mouth once daily. Patient should start on December 23, 2023. 0 12/23/2023 Active Start: 2023 losartan (COZA AR) 25 mg tablet Take 25 mg by mouth as directed. 0 2023 Active magnesium oxide 400 mg oral tablet (20 sources) Start: 12-26-2023 End: 05-13-2024 take 1 tablet by mouth twice daily magnesium oxide (MAG-OX) 400 mg (241.3 mg magnesium) tablet Take 1 tablet by mouth two times a day. 60 tablet 01/27/2024 05/13/2024 Discontinued metoprolol tartrate 25 mg oral tablet (12 sources) beta-Adrenergic Masha Start: 11-23-2023 End: 12-26-2023 take 1 tablet by mouth every twelve hours metoprolol tartrate, short acting, (LOPRESSOR) 25 mg tablet Take 1 tablet by mouth every 12 hours. Metoprolol was prescribed to prevent atrial fibrillation after thoracic surgery. Stop this medication after 30 days. 60 tablet 0 11/23/2023 12/26/2023 Discontinued montelukast 10 mg oral tablet (5 sources) Leukotriene Receptor Antagonist Start: 12-27-2023 End: 01-26-2024 take 1 tablet by mouth once daily montelukast (SINGULAIR) 10 mg tablet Take 1 tablet by mouth once daily. 30 tablet 1 12/27/2023 01/15/2024 Discontinued Nebulizer and Compressor For Neb (INNOSPIRE ESSENCE) (12 sources) Start: 11-23-2023 End: 12-26-2023 Nebulizer and Compressor For Neb (INNOSPIRE ESSENCE) 1 Each four times daily. 1 Each 0 11/23/2023 12/26/2023 Discontinued Start: 11-23-2023 End: 02-21-2024 Nebulizer and Compressor For Neb (INNOSPIRE ESSENCE) 1 Each four times daily. 1 Each 0 11/23/2023 02/21/2024 Suspended Start: 11-23-2023 End: 02-21-2024 Nebulizer and Compressor For Neb (INNOSPIRE ESSENCE) 1 Each four times daily. 1 Each 0 11/23/2023 02/21/2024 Active omeprazole 20 mg oral tablet (20 sources) Proton Pump Inhibitor Start: 12-22-2021 take 1 capsule by mouth once daily as needed Omeprazole 20MG Omeprazole 20MG, 1 (one) Capsule Capsule daily on empty stomach followed in 30 minutes by bkfst # 0, 12/22/2021, No Refill. Active Oral daily on empty stomach followed in 30 minutes by bkfst for 0 *Pick strength-form from [employer] for eRX* 08 Dec, 2021 Not-Taking/PRN Start: 09-28-2020 End: 04-28-2024 take 1 capsule by mouth once daily omeprazole (PRILOSEC) 20 mg capsule Take 20 mg by mouth once daily. 09/28/2020 04/28/2024 Discontinued Start: 09-28-2020 take 2 capsules by m outh twice daily omeprazole (PRILOSEC) 20 mg capsule Take 40 mg by mouth two times a day. 0 09/28/2020 Active oxyCODONE hydrochloride 5 mg oral tablet (4 sources) Opioid Agonist Start: 11-23-2023 End: 11-30-2023 take 1 tablet by mouth every six hours as needed oxyCODONE IR (ROXICODONE) 5 mg immediate release tablet Indications: Pleural effusion , Postoperative pain Take 1 tablet by mouth every 6 hours as needed for up to 7 days. 28 tablet 0 11/23/2023 11/30/2023 polyethylene glycol 3350 [id number] mg powder for oral solution (4 sources) Osmotic Laxative Start: 11-24-2023 End: 12-01-2023 polyethylene glycol 3350 17 gram packet Take 1 Packet by mouth once daily for 7 days. Dissolve dose in 4 - 8 ounces of liquid and take as directed. 7 Packet 0 11/24/2023 12/01/2023 predniSONE 10 mg oral tablet (20 sources) Start: 01-15-2024 End: 07-21-2024 predniSONE (DELTASONE) 10 mg tablet Indications: Chronic cough , Elevated C-reactive protein (CRP) , Elevated sedimentation rate Take 1 tablet by mouth as directed. Prednisone 10 mg 2 tabs tid x 5 days,2 tabs bid x 5 days,3 tabs daily x 5 days,2 tabs daily x 5 days,1 tab daily x 5 days,1/2 daily x 4 days and stip 82 tablet 01/15/2024 07/21/2024 Discontinued Start: 08-13-2023 End: 08-13-2023 Prednisone Active 10 MG PO A s Directed 18 August 13, 2023 5:25pm 1 tab tid w/ food x 3 days, then bid w/ food x 3 days, than qd w/ food x 3 days Start: 07-23-2023 predniSONE 20 MG 1 tablet Orally bid w/ food x 4 days then qd w/ food x 4 days for 8 days Jul, Active sildenafil 100 mg oral tablet (11 sources) Phosphodiesterase 5 Inhibitor Start: 01-03-2022 Sildenafil Citrate 100MG Sildenafil Citrate 100MG, 1 (one) Tablet 1 PO PRN ED # 6, 01/03/2022, Ref. x5. Active Oral 1 PO PRN ED for 30 *Pick strength-form from [employer] for eRX* Dec, Not-Taking/PRN sucralfate 1000 mg oral tablet (11 sources) Aluminum Complex Start: 04-28-2024 End: 05-28-2024 take 1 tablet by mouth twice daily sucralfate (CARAFATE) 1 gram tablet Take 1 tablet by mouth two times a day. 60 tablet 04/28/2024 05/28/2024 Problems Active Problems Problem Classification Problem Date Documented Da te Episodic/Chronic Acquired foot deformities (6 sources) Toe joint rigid; Translations: [Hallux rigidus, left foot] Onset: Chronic Acute bronchitis (1 source) Acute bronchitis due to other specified organisms Episodic Cataract (5 sources) After-cataract of bilateral eyes; Translations: [Other secondary cataract, bilateral] Onset: 5 08-12-2024 Chronic Chronic obstructive pulmonary disease and bronchiectasis (2 sources) Unspecified chronic bronchitis; Translations: [Chronic bronchitis] Onset: 4 03-17-2024 Chronic Deficiency and other anemia (1 source) Anemia; Translations: [Anemia, unspecified] 02-12-2024 Episodic Diseases of white blood cells (18 sources) Leukocytosis; Translations: [Elevated white blood cell [...] reflux disease without esophagitis] Chronic Essential hypertension (20 sources) Essential hypertension; Translations: [Essential (primary) hypertension] Onset: Chronic Fluid and electrolyte disorders (1 source) Hypokalemia; Translations: [Hypokalemia] 06-12-2024 Episodic Gastrointestinal hemorrhage (20 sources) Blood-tinged feces; Translations: [Melena] 05-29-2023 Episodic Heart valve disorders (4 sources) Cardiac murmur, unspecified; Translations: [Undiagnosed cardiac murmurs] 08-13-2023 Episodic Hemorrhoids (11 sources) Hemorrhoids; Translations: [Unspecified hemorrhoids] Episodic Hyperplasia of prostate (11 sources) Lower urinary tract symptoms due to benign prostatic hypertrophy; Translations: [Benign prostatic hyperplasia with lower urinary tract symptoms] Chronic Inflammation; infection of eye (except that caused by tuberculosis or sexually transmitteddisease) (5 sources) Blepharitis of upper and lower eyelids of bilateral eyes; Translations: [Unspecified blepharitis right eye, upper and lower eyelids] Onset: 5 08-12-2024 Episodic Malaise and fatigue (2 sources) Other fatigue; Translations: [Fatigue] Episodic Nausea and vomiting (11 sources) Nausea and vomiting; Translations: [Nausea with vomiting, unspecified] Onset: 4 08-13-2023 Episodic Noninfectious gastroenteritis (20 sources) Lymphocytic colitis; Translations: [Other and unspecified noninfectious gastroenteritis and colitis] Onset: 4 05-19-2024 Chronic Open wounds of head; neck; and trunk (1 source) Laceration without foreign body of scalp, initial encounter Episodic Osteoarthritis (20 sources) Unilateral primary osteoarthritis, left knee; Translations: [Osteoarthritis of knee] Onset: 5 08-23-2014 Chronic Osteoarthritis (6 sources) Osteoarthritis of left knee joint; Translations: [Osteoarthritis of left knee] Onset: 5 08-23-2014 Other aftercare (1 source) Other vermin exterminator (current) drug therapy Episodic Other aftercare (5 sources) Surgical follow-up; Translations: [Encounter for follow-up examination after completed treatment for conditions other than malignant neoplasm] 11-24-2023 Episodic Other aftercare (2 sources) Follow-up status; Translations: [Encounter for follow-up examination after completed treatment for conditions other than malignant neoplasm] 11-29-2023 Episodic Other circulatory disease (1 source) Elevated blood-pressure reading, without diagnosis of hypertension Episodic Other connective tissue disease (20 sources) History of total knee arthroplasty; Translations: [Presence of artificial knee joint, bilateral] Onset: 7 06-25-2016 Chronic Other connective tissue disease (1 source) Metatarsalgia of left foot; Translations: [Metatarsalgia, left foot] 10-08-2022 Episodic Other connective tissue disease (1 source) Cramp; Translations: [Cramp and spasm] 07-21-2024 Episodic Other diseases of veins and lymphatics (2 sources) Disorder of vein of lower extremity; Translations: [Venous insufficiency (chronic) (peripheral)] 08-27-2024 Episodic Other eye disorders (5 sources) Dry eyes; Translations: [Dry eye syndrome of bilateral lacrimal glands] Onset: 5 08-12-2024 Episodic Other eye disorders (5 sources) Chalazion of left upper eyelid; Translations: [Chalazion left upper eyelid] Onset: 5 08-12-2024 Episodic Other gastrointestinal disorders (14 sources) Dysphagia; Translations: [Dysphagia, unspecified] 05-29-2023 Episodic Other gastrointestinal disorders (1 source) Dysphagia, unspecified; Translations: [Dysphagia] Episodic Other gastrointestinal disorders (4 sources) Diarrhea; Translations: [Diarrhea, unspecified] 03-31-2024 Episodic Other gastrointestinal disorders (4 sources) Esophageal dysphagia; Translations: [Other dysphagia] 08-24-2024 Episodic Other lower respiratory disease (5 sources) Interstitial lung disease; Translations: [Interstitial pulmonary disease, unspecified] 03-17-2024 Chronic Other lower respiratory disease (3 sources) Interstitial pulmonary disease, unspecified; Translations: [Interstitial pulmonary disease (HCC)] Onset: 4 Chronic Other lower respiratory disease (18 sources) Cough; [...] Episodic Other nutritional; endocrine; and metabolic disorders (18 sources) Obesity; Translations: [Obesity, unspecified] Onset: 5 [...] mass index (BMI) 30.0-30.9, adult Chronic Other nutritional; endocrine; and metabolic disorders (20 sources) Obese class I; Translations: [Obesity, unspecified] Onset: 4 10-25-2023 Chronic Other nutritional; endocrine; and metabolic disorders (2 sources) Hypomagnesemia; Translations: [Hypomagnesemia] 02-12-2024 Chronic Other nutritional; endocrine; and metabolic disorders (1 source) Obesity, unspecified; Translations: [Obesity, Class I, BMI 30-34.9] Onset: 4 Chronic Other skin disorders (2 sources) Actinic keratosis; Translations: [Actinic keratosis] 08-27-2024 Episodic Other skin disorders (2 sources) Seborrheic keratosis; Translations: [Other seborrheic keratosis] 08-27-2024 Episodic Other skin disorders (2 sources) Lentiginosis; Translations: [Other melanin hyperpigmentation] 08-27-2024 Episodic Pancreatic disorders (not diabetes) (1 source) Exocrine pancreatic insufficiency; Translations: [Exocrine pancreatic insufficiency] 06-12-2024 Episodic Belia-; endo-; and myocarditis; cardiomyopathy (except that caused by tuberculosis or sexually transmitted disease) (13 sources) Pericardial effusion; Translations: [Pericardial effusion] Onset: 4 08-21-2023 Episodic Pleurisy; pneumothorax; pulmonary collapse (20 sources) Pleural effusion; Translations: [Pleural effusion, not elsewhere classified] Onset: 4 10-21-2023 Episodic Residual codes; unclassified (1 source) Bilateral lower limb edema; Translations: [Localized edema] 01-19-2024 Episodic Residual codes; unclassified (1 source) Generalized edema; Translations: [Anasarca] Onset: 4 Episodic Retinal detachments; defects; vascular occlusion; and retinopathy (5 sources) Nonexudative age-related macular degeneration; Translations: [Nonexudative age-related macular degeneration, bilateral, early dry stage] Onset: 5 08-12-2024 Chronic Unclassified (1 source) Established Patient Follow-Up Onset: 4 Unclassified (1 source) Consult Onset: 4 Past or Other Problems Problem Classification Problem Date Documented Da te Episodic/Chronic Abdominal pain (4 sources) Abdominal pain; Translations: [Unspecified abdominal pain] Onset: 04-20-2024 04-22-2024 Episodic Acute posthemorrhagic anemia (18 sources) Acute posthemorrhagic anemia; Translations: [Acute posthemorrhagic anemia] Onset: 08-24-2014 08-24-2014 Episodic Esophageal disorders (4 sources) Esophageal disorders; Translations: [Gastro-esophageal reflux disease with esophagitis, without bleeding] Genitourinary symptoms and ill-defined conditions (20 sources) Retention of urine; Translations: [Retention of urine, unspecified] Onset: 08-25-2014 08-25-2014 Episodic Other aftercare (2 sources) Encounter for follow-up examination after completed treatment for conditions other than malignant neoplasm; Translations: [Follow-up exam] Onset: 11-29-2023 Episodic Other circulatory disease (20 sources) Raynaud's phenomenon; Translations: [Raynaud's syndrome without gangrene] Onset: 12-25-2023 Resolved: 12-26-2023 12-26-2023 Chronic Other circulatory disease (20 sources) History of pericarditis; Translations: [Personal history of other diseases of the circulatory system] Onset: 12-25-2023 12-25-2023 Episodic Other connective tissue disease (2 sources) Pain in right foot; Translations: [Pain in right foot] Onset: 08-28-2022 Episodic Other connective tissue disease (2 sources) Pain in left foot; Translations: [Pain in left foot] Onset: 08-28-2022 Episodic Other gastrointestinal disorders (1 source) Diarrhea, unspecified; Translations: [Diarrhea, unspecified type] Onset: 04-20-2024 Episodic Other hematologic conditions (20 sources) ESR raised; Translations: [Elevated erythrocyte sedimentation rate] Onset: 12-25-2023 12-25-2023 Episodic Other hematologic conditions (2 sources) Elevated erythrocyte sedimentation rate; Translations: [Elevated sed rate] Onset: 02-04-2024 Episodic Other lower respiratory disease (20 sources) Chronic cough; Translations: [Chronic cough] Onset: 03-17-2024 01-06-2024 Episodic Other lower respiratory disease (20 sources) Nodule of lung; Translations: [Solitary pulmonary nodule] Onset: 05-19-2024 05-18-2024 Episodic Other nervous system disorders (20 sources) Postoperative pain ; Translations: [Other acute postprocedural pain] Onset: 11-21-2023 11-21-2023 Episodic Other nervous system disorders (1 source) Other acute postprocedural pain; Translations: [Postoperative pain] Onset: 11-21-2023 Episodic Other screening for suspected conditions (not mental disorders or infectious disease) (20 sources) Encounter for screening for malignant neoplasm of prostate; Translations: [Elevated C-reactive protein] Onset: 03-19-2022 Episodic Other upper respiratory disease (1 source) Other diseases of bronchus, not elsewhere classified; Translations: [Bronchiolar disease] Onset: 11-12-2023 Episodic Residual codes; unclassified (20 sources) Edema, generalized; Translations: [Generalized edema] Onset: 12-20-2023 Resolved: 12-26-2023 12-20-2023 Episodic Unclassified (3 sources) Subacute cough R05.2 Unclassified (1 source) Cough, unspecified; Translations: [Cough, unspecified] Onset: 09-06-2014 Results Test Name Value Interpretation Reference Range Facility Comprehensive metabolic 2000 panelOrdered By: Solange Delgado on 08-28-2024 Albumin [Mass/Vol] 4 g/dL 3.9 - 4.9 g/dL [facility] ALP [Catalytic activity/Vol] 126 U/L High 38 - 113 U/L [facility] ALT [Catalytic activity/Vol] 10 U/L 10 - 54 U/L [facility] Anion gap [Moles/Vol] 10 mmol/L 8 - 15 mmol/L [facility] AST [Catalytic activity/Vol] 22 U/L 14 - 40 U/L [facility] Bilirubin [Mass/Vol] 0.6 mg/dL 0.2 - 1 .3 mg/dL [facility] Calcium [Mass/Vol] 8.9 mg/dL 8.5 - 10. 2 mg/dL [facility] Chloride [Moles/Vol] 93 mmol/L Low 98 - 10 7 mmol/L [facility] CO2 [Moles/Vol] 33 mmol/L High 22 - 30 mmol/L [facility] Creatinine [Mass/Vol] 1.66 mg/dL High 0.73 - 1.22 mg/dL [facility] GFR/1.73 sq M.predicted among non-blacks MDRD (S/P/Bld) [Vol rate/Area] 43 mL/min/{1.73_m2} Low - PINF [facility] Comment on above: Estimated Glomerular Filtration Rate (eGFR) is calculated using the 2020 CKD-EPI creatinine equation. This equation utilizes serum creatinine, sex, and age as parameters. The creatinine assay has traceable calibration to isotope dilution-mass spectrometry. Refer to KDIGO guidelines for clinical interpretation. In patients with unstable renal function, e.g. those with acute kidney injury, the eGFR may not accurately reflect actual GFR. Glucose [Mass/Vol] 134 mg/dL High 74 - 99 mg/dL [facility] Comment on above: The [place] [employer] Association (ADA) provides guidance for cutoff values for fasting glucose and random glucose. The ADA defines fasting as no caloric intake for at least 8 hours. Fasting plasma glucose results between 100 to 125 mg/dL indicate increased risk for diabetes (prediabetes). Fasting plasma glucose results greater than or equal to 126 mg/dL meet the criteria for diagnosis of diabetes. In the absence of unequivocal hyperglycemia, results should be confirmed by repeat testing. In a patient with classic symptoms of hyperglycemia or hyperglycemic crisis, random plasma glucose results greater than or equal to 200 mg/dL meet the criteria for diagnosis of diabetes. Reference: Standards of Medical Care in Diabetes 2016, [place] [employer]. Diabetes Care. 2016.39(Suppl 1). Interpretation and review of laboratory results Abnormal [facility] Potassium [Moles/Vol] 2.7 mmol/L Low 3.7 - 5.1 mmol/L [facility] Protein [Mass/Vol] 7.4 g/dL 6.3 - 8.0 g/dL [facility] Sodium [Moles/Vol] 136 mmol/L 136 - 144 mmol/L [facility] Urea nitrogen [Mass/Vol] 40 mg/dL High 9 - 24 mg/dL [facility] MAGNESIUMon 08-28-2024 Magnesium [Mass/Vol] 2.4 mg/dL High 1.7 - 2 .3 mg/dL [facility] Magnesium [Mass/Vol]on 08-28 Interpretation and review of laboratory results Abnormal [facility] No Panel Informationon 08-27 [facility] metabolic 2000 panelon 08-24-2024 Albumin [Mass/Vol] 4.1 g/dL Normal 3.9-4.9 [facility] Comment on above: Order Comment: Speci men Type: BLOOD SPECIMENOrdering Facility: Address: [address] [place], [place] [address] Performed By: #### 2 4323-8, 62872-2, 3015-3 ####[facility] [id number] [address] [address] [place] ALP [Catalytic activity/Vol] 137 U/L High 38-113 [facility] Comment on above: Order Comment: Speci men Type: BLOOD SPECIMENOrdering Facility: Address: [address] [place], [place] [id number] Performed By: #### 2 4323-8, , 3 ####[facility] [id number] [place] [id number] [place] ALT [Catalytic activity/Vol] 17 U/L Normal 10-54 [facility] Comment on above: Order Comment: Speci men Type: BLOOD SPECIMENOrdering Facility: Address: [address] [place], [place] [id number] Performed By: #### 2 4323-8, , 3 ####[facility] [id number] [place] [id number] [place] Anion gap [Moles/Vol] 13 mmol/L Normal 8-15 [facility] Comment on above: Order Comment: Speci men Type: BLOOD SPECIMENOrdering Facility: Address: [address] [place], [place] [address] Performed By: #### 2 4323-8, 39281-1, 3015-3 ####[facility] LABIA [id number] [address] [address] [place] AST [Catalytic activity/Vol] 32 U/L Normal 14-40 [facility] Comment on above: Order Comment: Speci men Type: BLOOD SPECIMENOrdering Facility: Address: [address] [place], [place] [address] Performed By: #### 2 4323-8, , 3 ####[facility] LABCLIA [id number] [address] [address] [place] Bilirubin [Mass/Vol] 0.7 mg/dL Normal 0.2-1.3 [facility] Comment on above: Order Comment: Speci men Type: BLOOD SPECIMENOrdering Facility: Address: [address] [place] [address] Performed By: #### 2 4323-8, , 3 ####[facility] LABCLIA [id number] [address] [address] [place] Calcium [Mass/Vol] 9.5 mg/dL Normal 8.5-10.2 [facility] Comment on above: Order Comment: Speci men Type: BLOOD SPECIMENOrdering Facility: Address: [address] [place] [address] Performed By: #### 2 4323-8, , 3 ####[facility] LABCLIA [id number] [address] [address] [place] Chloride [Moles/Vol] 93 mmol/L Low 98-107 [facility] Comment on above: Order Comment: Speci men Type: BLOOD SPECIMENOrdering Facility: Address: [address] [place] [address] Performed By: #### 2 4323-8, , 3 ####[facility] [id number] [address] [address] [place] CO2 [Moles/Vol] 31 mmol/L High 22-30 [facility] Comment on above: Order Comment: Speci men Type: BLOOD SPECIMENOrdering Facility: Address: [address] [place] [address] Performed By: #### 2 4323-8, , 3015-08 ####[facility] [id number] [address] [address] [place] Creatinine [Mass/Vol] 1.61 mg/dL High 0.73-1.22 [facility] Comment on above: Order Comment: Alexandru campos Type: BLOOD SPECIMENOrdering Facility: Address: [address] [place] [address] Performed By: #### 2 4323-8, , 3015-08 ####[facility] [id number] [address] [address] [place] Creatinine and Glomerular filtration rate.predicted panel (S/P/Bld) 45 mL/min/1.73m??? Low >=60 [facility] Comment on above: Order Comment: Alexandru campos Type: BLOOD SPECIMENOrdering Facility: Address: [address] [place] [address] Result Comment: Kristel mated Glomerular Filtration Rate (eGFR) is calculated using the 2020 CKD-EPI creatinine equation. This equation utilizes serum creatinine, sex, and age as parameters. The creatinine assay has traceable calibration to isotope dilution-mass spectrometry. Refer to KDIGO guidelines for clinical interpretation. In patients with unstable renal function, e.g. those with acute kidney injury, the eGFR may not accurately reflect actual GFR. Performed By: #### 2 4323-8, , 3015-08 ####[facility] [id number] [address] [address] [place] Glucose [Mass/Vol] 99 mg/dL Normal 74-99 [facility] Comment on above: Order Comment: Alexandru campos Type: BLOOD SPECIMENOrdering Facility: Address: [address] [place] [address] Result Comment: The [place] Diabetes Association (ADA) provides guidance for cutoff values for fasting glucose and random glucose. The ADA defines fasting as no caloric intake for at least 8 hours. Fasting plasma glucose results between 100 to 125 mg/dL indicate increased risk for diabetes (prediabetes).Fasting plasma glucose results greater than or equal to 126 mg/dL meet the criteria for diagnosis of diabetes. In the absence of unequivocal hyperglycemia, results should be confirmed by repeat testing. In a patient with classic symptoms of hyperglycemia or hyperglycemic crisis, random plasma glucose results greater than or equal to 200 mg/dL meet the criteria for diagnosis of diabetes.Reference: Standards of Medical Care in Diabetes 2016, [place] [employer]. Diabetes Care. 2016.39(Suppl 1). Performed By: #### 2 4323-8, , 3 ####[facility] LABCLIA [id number] [place] [address] [place] Potassium [Moles/Vol] 2.9 mmol/L Low 3.7-5.1 [facility] Comment on above: Order Comment: Speci men Type: BLOOD SPECIMENOrdering Facility: Address: [address] [place] [address] Performed By: #### 2 4323-8, , 3 ####[facility] LABCLIA [id number] [place] [address] [place] Protein [Mass/Vol] 8.0 g/dL Normal 6.3-8.0 [facility] Comment on above: Order Comment: Speci men Type: BLOOD SPECIMENOrdering Facility: Address: [address] [place] [address] Performed By: #### 2 4323-8, , 3 ####[facility] LABCLIA [id number] [place] [address] [place] Sodium [Moles/Vol] 137 mmol/L Normal 136-144 [facility] Comment on above: Order Comment: Speci men Type: BLOOD SPECIMENOrdering Facility: Address: [address] [place] [address] Performed By: #### 2 4323-8, , 3 ####[facility] LABCLIA [id number] [place] [id number] [place] Urea nitrogen [Mass/Vol] 30 mg/dL High 9-24 [facility] Comment on above: Order Comment: Speci men Type: BLOOD SPECIMENOrdering Facility: Address: [address] [place] [address] Performed By: #### 2 4323-8, 47513-4, 6-3 ####[facility] LABIA [id number] [place] [address] [place] Magnesium SerPl-mCncon 08-24 Magnesium [Mass/Vol] 2.4 mg/dL High 1.7-2.3 [facility] Comment on above: Order Comment: Speci men Type: BLOOD SPECIMENOrdering Facility: Address: [address] [place] [address] Performed By: #### 2 4323-8, 62934-0, 6-3 ####[facility] LABIA [id number] [place] [address] [place] TSH SerPl-aCncon 08-24-2024 TSH Qn 2.980 m[IU]/L Normal 0.270-4.200 [facility] Comment on above: Order Comment: Speci men Type: BLOOD SPECIMENOrdering Facility: Address: [address] [place] [address] Performed By: #### 2 4323-8, 43911-9, 6-3 ####[facility]IA [id number] [place] [id number] [place] CNPNon 08-21-2024 CNPN Normal [facility] CNOVon 08-18-2024 CNOV Normal [facility] Optical coherence tomography study reporton 08-14-2024 [facility] No Panel Informationon 08-13 IMPRESSION: Small, layering right-sided pleural effusion, stable in size from prior study of 07/20/2024. Capsule Filler: PSCB Transcribe Date/Time: Aug 13 2024 10:27A Dictated by : NOLBERTO SMITH MD This examination was interpreted and the report reviewed and electronically signed by: NOLBERTO SMITH MD on Aug 13 2024 10:32AM EST DIVISION OF RADIOLOGY Radiology Study observation (narrative) [facility] No Panel InformationOrdered By: Ccf Provider on 08-13-2024 [facility] XR CHEST 1V DECUBITUS RTon 0 08-13-2024 XR CHEST 1V DECUBITUS RT Normal [facility] XR CHEST 2V FRONTAL/LATon XR CHEST 2V FRONTAL/LAT Normal [facility] XR Chest AP right lateral-de cubituson 08-13-2024 * * *Final Report* * * DATE OF EXAM: Aug 13 2024 9:44AM LNX 5370 - XR CHEST 1V DECUBITUS RT / PROCEDURE REASON: Pleural effusion * * * * Physician Interpretation * * * * EXAMINATION: CHEST RADIOGRAPH (2 VIEW FRONTAL & LATERAL) and RIGHT DECUBITUS CLINICAL HISTORY: Pleural effusion MQ: XC2_6 EXAM DATE/TIME: 08/13/2024 9:44 AM COMPARISON: Chest x-ray 07/20/2024 RESULT: Lines, tubes, and devices: Right-sided chest tube extends to the posterior aspect of the right mid lung zone. Lungs and pleura: Small right-sided pleural effusion, stable. Decubitus view demonstrates layering of the pleural effusion, with greater extension into the right major fissure. Associated bibasilar atelectasis, not substantially changed. The pulmonary vasculature is within normal limits. No evidence for pneumothorax. Cardiomediastinal silhouette: Normal cardiomediastinal silhouette. Bones and soft tissues: Mild degenerative change within the thoracic spine is again noted. DIVISION OF RADIOLOGY Provider, [facility] - 08/13/2024 * * *Final Report* * * DATE OF EXAM: Aug 13 2024 9:44AM LNX 5370 - XR CHEST 1V DECUBITUS RT / PROCEDURE REASON: Pleural effusion * * * * Physician Interpretation * * * * EXAMINATION: CHEST RADIOGRAPH (2 VIEW FRONTAL & LATERAL) and RIGHT DECUBITUS CLINICAL HISTORY: Pleural effusion MQ: XC2_6 EXAM DATE/TIME: 08/13/2024 9:44 AM COMPARISON: Chest x-ray 07/20/2024 RESULT: Lines, tubes, and devices: Right-sided chest tube extends to the posterior aspect of the right mid lung zone. Lungs and pleura: Small right-sided pleural effusion, stable. Decubitus view demonstrates layering of the pleural effusion, with greater extension into the right major fissure. Associated bibasilar atelectasis, not substantially changed. The pulmonary vasculature is within normal limits. No evidence for pneumothorax. Cardiomediastinal silhouette: Normal cardiomediastinal silhouette. Bones and soft tissues: Mild degenerative change within the thoracic spine is again noted. IMPRESSION IMPRESSION: Small, layering right-sided pleural effusion, stable in size from prior study of 07/20/2024. Capsule Filler: ALONSO Transcribe Date/Time: Aug 13 2024 10:27A Dictated by : NOLBERTO SMITH MD This examination was interpreted and the report reviewed and electronically signed by: NOLBERTO SMITH MD on Aug 13 2024 10:32AM EST [facility] XR Chest PA and Lateralon * * *Final Report* * * DATE OF EXAM: Aug 13 2024 9:44AM LNX 5291 - XR CHEST 2V FRONTAL/LAT / PROCEDURE REASON: Pleural effusion * * * * Physician Interpretation * * * * EXAMINATION: CHEST RADIOGRAPH (2 VIEW FRONTAL & LATERAL) and RIGHT DECUBITUS CLINICAL HISTORY: Pleural effusion MQ: XC2_6 EXAM DATE/TIME: 08/13/2024 9:44 AM COMPARISON: Chest x-ray 07/20/2024 RESULT: Lines, tubes, and devices: Right-sided chest tube extends to the posterior aspect of the right mid lung zone. Lungs and pleura: Small right-sided pleural effusion, stable. Decubitus view demonstrates layering of the pleural effusion, with greater extension into the right major fissure. Associated bibasilar atelectasis, not substantially changed. The pulmonary vasculature is within normal limits. No evidence for pneumothorax. Cardiomediastinal silhouette: Normal cardiomediastinal silhouette. Bones and soft tissues: Mild degenerative change within the thoracic spine is again noted. DIVISION OF RADIOLOGY Provider, [facility] - 08/13/2024 * * *Final Report* * * DATE OF EXAM: Aug 13 2024 9:44AM LNX 5291 - XR CHEST 2V FRONTAL/LAT / PROCEDURE REASON: Pleural effusion * * * * Physician Interpretation * * * * EXAMINATION: CHEST RADIOGRAPH (2 VIEW FRONTAL & LATERAL) and RIGHT DECUBITUS CLINICAL HISTORY: Pleural effusion MQ: XC2_6 EXAM DATE/TIME: 08/13/2024 9:44 AM COMPARISON: Chest x-ray 07/20/2024 RESULT: Lines, tubes, and devices: Right-sided chest tube extends to the posterior aspect of the right mid lung zone. Lungs and pleura: Small right-sided pleural effusion, stable. Decubitus view demonstrates layering of the pleural effusion, with greater extension into the right major fissure. Associated bibasilar atelectasis, not substantially changed. The pulmonary vasculature is within normal limits. No evidence for pneumothorax. Cardiomediastinal silhouette: Normal cardiomediastinal silhouette. Bones and soft tissues: Mild degenerative change within the thoracic spine is again noted. IMPRESSION IMPRESSION: Small, layering right-sided pleural effusion, stable in size from prior study of 07/20/2024. Capsule Filler: PSCB Transcribe Date/Time: Aug 13 2024 10:27A Dictated by : NOLBERTO SMITH MD This examination was interpreted and the report reviewed and electronically signed by: NOLBERTO SMITH MD on Aug 13 2024 10:32AM [facility] CNPNon 08-12-2024 [facility] Normal [facility] Optical coherence tomography study reporton 08-12-2024 Radiology Study observation (narrative) [facility] 08-04-2024 [facility] Normal [facility] 25(OH)D3 [facility] 2024 25-hydroxyvitamin D3 [Mass/Vol] 49.2 ng/mL Normal 31.0-80.0 [facility] Comment on above: Order Comment: Speci men Type: BLOOD SPECIMENOrdering Facility: Address: [address] [place] [address] Result Comment: Clas sification of 25 [place] Vitamin D status:Deficiency/Insufficiency: < or = 30 ng/ml.Sufficiency/Optimal Levels: 31-80 ng/mLToxicity: > 100 ng/mL.Test performed by chemiluminescent immunoassay. Performed By: #### 1 989-3 ####[facility] LABCLIA [id number] BRIELLE DANBURYJONAS [id number] [address] [place] Basic metabolic 2000 panelon 07-29-2024 Anion gap [Moles/Vol] 7 mmol/L Low 8-15 [facility] Comment on above: Order Comment: Speci men Type: BLOOD SPECIMENOrdering Facility: Address: [address] [place] [address] Performed By: #### 2 4321-2, ####[facility] LABCLIA [id number] [place] [address] Calcium [Mass/Vol] 8.9 mg/dL Normal 8.5-10.2 [facility] Comment on above: Order Comment: Speci men Type: BLOOD SPECIMENOrdering Facility: Address: [address] [place] [address] Performed By: #### 2 4321-2, ####[facility] LABCLIA [id number] [place] [address] Chloride [Moles/Vol] 105 mmol/L Normal 98-107 [facility] Comment on above: Order Comment: Speci men Type: BLOOD SPECIMENOrdering Facility: Address: [address] [place] [address] Performed By: #### 2 4321-2, ####[facility] LABCLIA [id number] [place] [address] CO2 [Moles/Vol] 27 mmol/L Normal 22-30 [facility] Comment on above: Order Comment: Speci men Type: BLOOD SPECIMENOrdering Facility: Address: [address] [place] [address] Performed By: #### 2 43206-18, ####[facility] LABCLIA [id number] [place] [address] Creatinine [Mass/Vol] 1.25 mg/dL High 0.73-1.22 [facility] Comment on above: Order Comment: Specsyl campos Type: BLOOD SPECIMENOrdering Facility: Address: [address] [place] [address] Performed By: #### 2 43206-18, ####[facility] LABCLIA [id number] [place] [address] Creatinine and Glomerular filtration rate.predicted panel (S/P/Bld) 61 mL/min/1.73m??? Normal >=60 [facility] Comment on above: Order Comment: Alexandru campos Type: BLOOD SPECIMENOrdering Facility: Address: [address] [place] [address] Result Comment: Kristel mated Glomerular Filtration Rate (eGFR) is calculated using the 2020 CKD-EPI creatinine equation. This equation utilizes serum creatinine, sex, and age as parameters. The creatinine assay has traceable calibration to isotope dilution-mass spectrometry. Refer to KDIGO guidelines for clinical interpretation. In patients with unstable renal function, e.g. those with acute kidney injury, the eGFR may not accurately reflect actual GFR. Performed By: #### 2 43206-18, ####[facility] LABCLIA [id number] [place] [address] Glucose [Mass/Vol] 141 mg/dL High 74-99 [facility] Comment on above: Order Comment: Speci men Type: BLOOD SPECIMENOrdering Facility: Address: [address] [place] [id number] Result Comment: The [place] Diabetes Association (ADA) provides guidance for cutoff values for fasting glucose and random glucose. The ADA defines fasting as no caloric intake for at least 8 hours. Fasting plasma glucose results between 100 to 125 mg/dL indicate increased risk for diabetes (prediabetes).Fasting plasma glucose results greater than or equal to 126 mg/dL meet the criteria for diagnosis of diabetes. In the absence of unequivocal hyperglycemia, results should be confirmed by repeat testing. In a patient with classic symptoms of hyperglycemia or hyperglycemic crisis, random plasma glucose results greater than or equal to 200 mg/dL meet the criteria for diagnosis of diabetes.Reference: Standards of Medical Care in Diabetes 2016, [place] [employer]. Diabetes Care. 2016.39(Suppl 1). Performed By: #### 2 4320-07, ####[facility] LABCLIA [id number] [place] [address] Potassium [Moles/Vol] 4.0 mmol/L Normal 3.7-5.1 [facility] Comment on above: Order Comment: Speci men Type: BLOOD SPECIMENOrdering Facility: Address: [address] [place] [address] Performed By: #### 2 4320-07, ####[facility] LABIA [id number] [place] [address] Sodium [Moles/Vol] 139 mmol/L Normal 136-144 [facility] Comment on above: Order Comment: Speci men Type: BLOOD SPECIMENOrdering Facility: Address: [address] [place] [address] Performed By: #### 2 4320-07, ####[facility] LABCLIA [id number] [place] [address] Urea nitrogen [Mass/Vol] 27 mg/dL High 9-24 [facility] Comment on above: Order Comment: Speci men Type: BLOOD SPECIMENOrdering Facility: Address: [address] [place] [address] Performed By: #### 2 4320-07, ####[facility] LABCLIA [id number] [place] [address] CBC panel Auto (Bld)on 07-29 Erythrocyte distribution width (RBC) [Ratio] 16.2 % High 11.5 - 15.0 % [facility] Hematocrit (Bld) [Volume fraction] 34.6 % Low 39.0 - 51.0 % [facility] Hemoglobin (Bld) [Mass/Vol] 11.4 g/dL Low 13.0 - 17.0 g/dL [facility] Interpretation and review of laboratory results Abnormal [facility] MCH (RBC) [Entitic mass] 31.3 pg 26.0 - 34.0 pg [facility] MCHC (RBC) [Mass/Vol] 32.9 g/dL 30.5 - 36.0 g/dL [facility] MCV (RBC) [Entitic vol] 95.1 fL 80.0 - 100.0 fL [facility] Nucleated RBC (Bld) [#/Vol] NINF [facility] Platelet mean volume (Bld) [Entitic vol] 10.1 fL 9.0 - 12.7 fL [facility] Platelets (Bld) [#/Vol] 222 10*3/uL [facility] RBC (Bld) [#/Vol] 3.64 10*6/uL Low 4.20 - 6.0 0 m/uL [facility] WBC (Bld) [#/Vol] 7.62 10*3/uL [facility] Erythrocyte distribution width (RBC) [Ratio] 16.2 % High 11.5-15.0 [facility] Comment on above: Order Comment: Speci men Type: BLOOD SPECIMENOrdering Facility: Address: [address] [place], [place] [address] Performed By: #### 5 8410-2 ####[facility] LABIA [id number] [place] [address] Hematocrit (Bld) [Volume fraction] 34.6 % Low 39.0-51.0 [facility] Comment on above: Order Comment: Speci men Type: BLOOD SPECIMENOrdering Facility: Address: [address] [place] [address] Performed By: #### 5 8410-2 ####[facility] LABCLIA [id number] [place] [address] Hemoglobin (Bld) [Mass/Vol] 11.4 g/dL Low 13.0-17.0 [facility] Comment on above: Order Comment: Speci men Type: BLOOD SPECIMENOrdering Facility: Address: [address] [place] [address] Performed By: #### 5 8410-2 ####[facility] LABCLIA [id number] [place] [address] MCH (RBC) [Entitic mass] 31.3 pg Normal 26.0-34.0 [facility] Comment on above: Order Comment: Speci men Type: BLOOD SPECIMENOrdering Facility: Address: [address] [place] [address] Performed By: #### 5 8410-2 ####[facility] LABCLIA [id number] [place] [address] MCHC (RBC) [Mass/Vol] 32.9 g/dL Normal 30.5-36.0 [facility] Comment on above: Order Comment: Speci men Type: BLOOD SPECIMENOrdering Facility: Address: [address] [place] [address] Performed By: #### 5 8410-2 ####[facility] LABCLIA [id number] [place] [address] MCV (RBC) [Entitic vol] 95.1 fL Normal 80.0-100.0 [facility] Comment on above: Order Comment: Speci men Type: BLOOD SPECIMENOrdering Facility: Address: [address] [place] [address] Performed By: #### 5 8410-2 ####[facility] LABCLIA [id number] [place] [address] Nucleated RBC (Bld) [#/Vol] 10*3/uL Normal <0.01 [facility] Comment on above: Order Comment: Speci men Type: BLOOD SPECIMENOrdering Facility: Address: [address] [place] [address] Performed By: #### 5 8410-2 ####[facility] LABCLIA [id number] [place] [address] Platelet mean volume (Bld) [Entitic vol] 10.1 fL Normal 9.0-12.7 [facility] Comment on above: Order Comment: Speci men Type: BLOOD SPECIMENOrdering Facility: Address: [address] [place] [address] Performed By: #### 5 8410-2 ####[facility] LABCLIA [id number] [place] [address] Platelets (Bld) [#/Vol] 222 10*3/uL Normal 150-400 [facility] Comment on above: Order Comment: Speci men Type: BLOOD SPECIMENOrdering Facility: Address: [address] [place] [address] Performed By: #### 5 8410-2 ####[facility] LABIA [id number] [place] [address] RBC (Bld) [#/Vol] 3.64 10*6/uL Low 4.20-6.00 [facility] Comment on above: Order Comment: Speci men Type: BLOOD SPECIMENOrdering Facility: Address: [address] [place] [address] Performed By: #### 5 8410-2 ####[facility] LABCLIA [id number] [place] [address] WBC (Bld) [#/Vol] 7.62 10*3/uL Normal 3.70-11.00 [facility] Comment on above: Order Comment: Speci men Type: BLOOD SPECIMENOrdering Facility: Address: [address] [place] [address] Performed By: #### 5 8410-2 ####[facility] LABCLIA [id number] [place] [address] Vilma Garcia [birth year] 25 Cortisol [Mass/Vol] 11.1 ug/dL Normal 4.8-19.5 [facility] Comment on above: Order Comment: Speci men Type: BLOOD SPECIMENOrdering Facility: Address: [address] [place], [place] [address] Result Comment: Prov ided reference range is from 6-10 AM sample collection time.Cortisol Reference Range: 6-10 AM = 4.8-19.5 ug/dL, 4-8 PM = 2.5-11.9 ug/dL Performed By: #### 2 143-6, 2132-02 ####[facility] LABCLIA [id number] [place] [id number] [place] Magnesium [facility]on 07-29 Magnesium [Mass/Vol] 2.0 mg/dL Normal 1.7-2.3 [facility] Comment on above: Order Comment: Speci men Type: BLOOD SPECIMENOrdering Facility: Address: [address] [place] [address] Performed By: #### 2 4321-2, 86435-3 ####[facility] LABCLIA [id number] [place] [address] Vit B12 SerPl-ncon 025 Cobalamin (Vitamin B12) [Mass/Vol] 729 pg/mL Normal 232-1245 [facility] Comment on above: Order Comment: Speci men Type: BLOOD SPECIMENOrdering Facility: Address: [address] [place], [place] [address] Performed By: #### 2 143-6, 2132-02 ####[facility] LABIA [id number] [place] [id number] [place] US Chest limitedon [facility] ALBUMINon 07-20-2024 Albumin [Mass/Vol] 3.9 g/dL 3.9 - 4.9 g/dL [facility] Albumin (Body fld) [Mass/Vol ]on 07-20-2024 Fluid Nom (Body fld) Pleural Cavity, Right Normal [facility] Comment on above: Order Comment: Speci men Type: SPECIMEN FROM PLEURA OBTAINED BY THORACENTESISOrdering Facility: Address: [address] [place] [address] Result Comment: recu rrent pleual effusion on right Performed By: #### 2 529-6, 2881-1, 1746- ####[facility] LABCLIA [id number] [place] [address] [place] Albumin Fld-mCncon 5 Albumin (Body fld) [Mass/Vol] 1.4 g/dL Normal See Comment [facility] Comment on above: Order Comment: Speci men Type: SPECIMEN FROM PLEURA OBTAINED BY THORACENTESISOrdering Facility: Address: [address] [place] [address] Result Comment: Body Fluid Albumin may be used in classifying ascitic fluid into high-gradient or low-gradient fluids as determined by the serum-ascites albumin gradient, which is calculated as (serum albumin) - (ascites albumin).The serum and fluid specimens should be drawn with a minimal intervening time interval to appropriately analyze the gradient.Gradients greater than or equal to 1.1 g/dL are considered high, which reflects a high hydrostatic pressure, commonly caused by: cirrhosis or other processes generating portal hypertension.In samples where gradients are less than 1.1 g/dL, ascites generated from conditions without portal hypertension should be considered.Reference:1. CLSI. Analysis of Body Fluids in Clinical Chemistry Approved Guideline. CLSI document C49A. RAJEEV Bui: Clinical Laboratory Standards [place]: 2007.2. Dionicio SERNA. Serum to ascites albumin gradient. UpToDate. 2015. Accessed on September 28, 2015. Performed By: #### 2 529-6, 2881-1, 1746-10 ####[facility] LAB[facility]IA [id number] [place] [id number] [place] Albumin SerPl-mCncon 025 Albumin [Mass/Vol] 3.9 g/dL Normal 3.9-4.9 [facility] Comment on above: Order Comment: Speci men Type: BLOOD SPECIMENOrdering Facility: Address: [address] [place] [address] Performed By: #### 1 751-7, 2885-2 ####[facility] [id number] [facility]ITAL[facility]ie[facility] AVEN[address]EDES[address] [place] [address] [place] CNOVon 07-20-2024 CNOV Normal [facility] LACTATE DEHYDROGENASEon LDH [Catalytic activity/Vol] 293 U/L High 135 - 225 U/L [facility] Comment on above: Hemolysis present. T he origin of the hemolysis, in vitro versus an in vivo hemolytic process, cannot be distinguished via this assay alone. In vitro hemolysis may lead to non-physiological (spurious) elevation in lactate dehydrogenase (LDH) results. The result should be interpreted in context of the clinical setting and other test results. Suggest reorder as clinically indicated. LDH Fld-cCncon 07-20-2024 LDH (Body fld) [Catalytic activity/Vol] 167 U/L Normal See Comment [facility] Comment on above: Order Comment: Speci men Type: SPECIMEN FROM PLEURA OBTAINED BY THORACENTESISOrdering Facility: Address: [address] [place] [address] Result Comment: Pleu ral fluids: Pleural fluid lactate dehydrogenase (LDH) measurements may be useful for classifying pleural effusions as exudates. A ratio of pleural fluid LDH to a concurrent serum LDH > 0.6 is suggestive of exudate.Peritoneal fluids: Ascitic fluid LDH measurements may aid in characterizing secondary peritonitis and should be interpreted along with other clinical and laboratory information.Synovial fluids: Synovial fluid LDH measurements may be useful as an inflammatory marker for various arthritic conditions and should be interpreted along with other clinical and laboratory information.Reference: 1. CLSI. Analysis of Body Fluids in Clinical Chemistry Approved Guideline. CLSI document C49A. RAJEEV Bui: Clinical Laboratory Standards [place]: 2007.Reference: 2. Rafael STARK, Fei Doyle. Body fluid analysis: clinical utility and applicability of published studies to guide interpretation of today's laboratory testing in serous fluids. Crit Rev Clin Lab Sci, 2013:50(4,5):107 to 124.Reference: 3. Dougie Starr Mitrovic DR. Lactate dehydrogenase activity and its isoenzymes in serum and synovial fluid of patients with rheumatoid arthritis and osteoarthritis. J Rheumatol. 1992:19:529 to 533. Performed By: #### 2 529-6, 2881-1, 1747-5 ####[facility] [id number] [place] [address] [place] LDH SerPl-cCncon 07-20-2024 LDH [Catalytic activity/Vol] 293 U/L High 135-225 [facility] Comment on above: Order Comment: Speci men Type: BLOOD SPECIMENOrdering Facility: Address: [address] [place] [address] Result Comment: Hemo lysis present. The origin of the hemolysis, in vitro versus an in vivo hemolytic process, cannot be distinguished via this assay alone. In vitro hemolysis may lead to non-physiological (spurious) elevation in lactate dehydrogenase (LDH) results. Theresult should be interpreted in context of the clinical setting and other test results. Suggest reorder as clinically indicated. Performed By: #### 2 532-0 ####[facility] LABIA [id number] [place] [address] [place] LDH [Catalytic activity/Vol] on 07-20-2024 Interpretation and review of laboratory results Abnormal [facility] No Panel Informationon 07-20 Interpretation and review of laboratory results Normal [facility] PROTEIN, TOTALon 07-20-2024 Protein [Mass/Vol] 7.6 g/dL 6.3 - 8.0 g/dL [facility] Prot Fld-mCncon 07-20-2024 Protein (Body fld) [Mass/Vol] 2.2 g/dL Normal See Comment [facility] Comment on above: Order Comment: Antonellai beth Type: SPECIMEN FROM PLEURA OBTAINED BY THORACENTESISOrdering Facility: Address: [address] [place] [address] Result Comment: Sero us fluids: Effusions are the accumulation of clinically detected fluid in any of the serous cavities. Effusions are further into transudates and exudates, which aid in determining the etiology of the effusion.Transudate: Body fluid total protein measurement < 3.0 g/dL. A ratio of serous fluid total protein to a concurrent serum total protein < 0.5 indicates a transudate.Exudate: Body fluid total protein measurement >= 3.0 g/dL. A ratio of serous fluid total protein to a concurrent serum total protein >= 0.5 indicates an exudate.Reference: 1. CLSI. Analysis of Body Fluids in Clinical Chemistry Approved Guideline. CLSI document C49A. RAJEEV Bui: Clinical Laboratory Standards [place]: 2007. Performed By: #### 2 529-6, 2881-1, 1747-5 ####[facility]IA [id number] [place] [address] [place] Prot SerPl-mCncon 07-20-2024 Protein [Mass/Vol] 7.6 g/dL Normal 6.3-8.0 [facility] Comment on above: Order Comment: Speci men Type: BLOOD SPECIMENOrdering Facility: Address: [address] [place] [address] Performed By: #### 1 751-7, 2885-2 ####[facility] [id number] [address] STATES OF [facility] Chest limitedon Radiology Study observation (narrative) [facility] XR CHEST 2V FRONTAL/LATon XR CHEST 2V FRONTAL/LAT Normal [facility] XR Chest PA and Lateralon IMPRESSION: Decreased size of small right pleural effusion. Capsule Filler: PSCB Transcribe Date/Time: Jul 20 2024 12:41P Dictated by : PANCHO CANALES MD This examination was interpreted and the report reviewed and electronically signed by: ANALY ALONSO MD on Jul 20 2024 1:49PM [facility] DIVISION OF RADIOLOGY * * *Final Report* * * DATE OF EXAM: Jul 20 2024 12:11PM [facility] [id number] - XR CHEST 2V FRONTAL/LAT / PROCEDURE REASON: Pleural effusion * * * * Physician Interpretation * * * * EXAMINATION: CHEST RADIOGRAPH (2 VIEW FRONTAL & LATERAL) CLINICAL HISTORY: Pleural effusion MQ: XC2_6 EXAM DATE/TIME: 07/20/2024 12:11 PM COMPARISON: 05/18/2024 RESULT: Lines, tubes, and devices: Right chest tube terminates at the posterior/paraspinal right midlung zone. Lungs and pleura: No new focal consolidation. Decreased size of small right pleural effusion and adjacent atelectasis. No pneumothorax. Cardiomediastinal silhouette: Stable cardiomediastinal silhouette. Bones and soft tissues: Degenerative changes are present within the thoracic spine. DIVISION OF RADIOLOGY [facility] * * *Final Report* * * DATE OF EXAM: Jul 20 2024 12:11PM [facility] 5291 - XR CHEST 2V FRONTAL/LAT / PROCEDURE REASON: Pleural effusion * * * * Physician Interpretation * * * * EXAMINATION: CHEST RADIOGRAPH (2 VIEW FRONTAL & LATERAL) CLINICAL HISTORY: Pleural effusion MQ: XC2_6 EXAM DATE/TIME: 07/20/2024 12:11 PM COMPARISON: 05/18/2024 RESULT: Lines, tubes, and devices: Right chest tube terminates at the posterior/paraspinal right midlung zone. Lungs and pleura: No new focal consolidation. Decreased size of small right pleural effusion and adjacent atelectasis. No pneumothorax. Cardiomediastinal silhouette: Stable cardiomediastinal silhouette. Bones and soft tissues: Degenerative changes are present within the thoracic spine. IMPRESSION IMPRESSION: Decreased size of small right pleural effusion. Capsule Filler: PSCB Transcribe Date/Time: Jul 20 2024 12:41P Dictated by : PANCHO CANALES MD This examination was interpreted and the report reviewed and electronically signed by: ANALY ALONSO MD on Jul 20 2024 1:49PM EST [facility] Radiology Study observation (narrative) [facility] XR Chest PA and LateralOrder ed By: Ccf Provider on 07-20-2024 [facility] CNPNon 07-16-2024 CNPN Normal [facility] CNPNon 06-29-2024 CNPN Normal [facility] BODY FLUID CELL COUNTon Clarity (Unsp spec) Clear Normal [facility] Comment on above: Order Comment: Speci men Type: SPECIMEN FROM PLEURA OBTAINED BY THORACENTESISOrdering Facility: Address: [address] [place] [address] Performed By: #### C CBF, [id number] ####[facility]CLIA [id number] [place] [address] [place] Color (Body fld) Yellow Normal Yellow [facility] Comment on above: Order Comment: Speci men Type: SPECIMEN FROM PLEURA OBTAINED BY THORACENTESISOrdering Facility: Address: [address] [place] [address] Performed By: #### C CBF, [id number] ####[facility]IA [id number] [place] [address] [place] RBC Manual cnt (Body fld) [#/Vol] <2000 Normal <2000 [facility] Comment on above: Order Comment: Speci men Type: SPECIMEN FROM PLEURA OBTAINED BY THORACENTESISOrdering Facility: Address: [address] [place] [address] Performed By: #### C CBF, [id number] ####[facility]IA [id number] [place] [address] [place] Specimen source Nom (Body fld) Pleural Cavity, Right Normal [facility] Comment on above: Order Comment: Speci men Type: SPECIMEN FROM PLEURA OBTAINED BY THORACENTESISOrdering Facility: Address: [address] [place] [address] Performed By: #### C CBF, [id number] ####[facility]CLIA [id number] [place] [address] [place] WBC Manual cnt (Body fld) [#/Vol] 408 /uL Normal <1000 [facility] Comment on above: Order Comment: Speci men Type: SPECIMEN FROM PLEURA OBTAINED BY THORACENTESISOrdering Facility: Address: [address] [place] [address] Performed By: #### C CBF, [id number] ####[facility]CLIA [id number] [place] [address] [place] CNOVon 06-22-2024 CNOV Normal [facility] FLOW CYTOMETRY FOR LEUKEMIA/ LYMPHOMA (FCLL) PERFORMABLEon 06-22-2024 FLOW CYTOMETRY ORDER STATUS Results will be reported under F case ID when completed Normal [facility] Comment on above: Order Comment: Speci men Type: SPECIMEN FROM PLEURA OBTAINED BY THORACENTESISOrdering Facility: Address: [address] [place] [address] Performed By: #### F CLLP ####[facility]IA [id number] [place] [address] [place] FLOW CYTOMETRY FOR LEUKEMIA/ LYMPHOMA (FCLL) REFLEXon 06-22-2024 DIAGNOSIS COMMENT Normal [facility] Comment on above: Order Comment: Speci men Type: SPECIMEN FROM PLEURA OBTAINED BY THORACENTESISOrdering Facility: Address: [address] [place] [address] Result Comment: This test was developed and its performance characteristics determined by [facility]'s Amna Jonnathan [facility] Pathology and Laboratory Medicine [place] (-[facility]). It has not been cleared or approved by the FDA. [facility] is regulated under CLIA as qualified to perform high-complexity testing. This test is used for clinical purposes. It should not be regarded as investigational or for research. Performed By: #### F CLLRFLX ####[facility]IA [id number] [place] [address] [place] FINAL PERFORMING LAB Normal [facility] Comment on above: Order Comment: Speci men Type: SPECIMEN FROM PLEURA OBTAINED BY THORACENTESISOrdering Facility: Address: [address] [place] [address] Result Comment: Diag nostic interpretation performed at [facility], [address]# [id number] Director: Ramos Strickland M.D. Performed By: #### F CLLRFLX ####[facility] [id number] [place] [address] [place] FLOW CYTOMETRY RESULTS Normal [facility] Comment on above: Order Comment: Speci men Type: SPECIMEN FROM PLEURA OBTAINED BY THORACENTESISOrdering Facility: Address: [address] [place] [address] Result Comment: Spec imen type: Pleural fluidTotal nucleated cell count: 408 /uLRed blood cell count: <2,000 /uLDifferential (serous fluid): Neutrophil: 6; Lymphocytes: 80; Monocyte: 6; Macrophage: 6; Eosinophil: 0; Mesothelial: 1; Reactive lymphocyte: 1Morphology comments: lymphocyte-rich effusionViability: 100%Results:Lymphocyte gate: 95% of total eventsFlow Cytometry Body Fluid ImmunophenotypingMarker Normal Cell Type Result (Lymphocytes)CD2 T/NK cells Normal PatternCD3 T-cells Normal PatternCD4 T-cell subset Normal PatternCD5 T-cells Normal PatternCD7 T/NK-cells Normal PatternCD8 T-cell subset Normal QbhddvgGV35 B-cell subset Normal PqeglzmPW53 Myeloid Normal ZjtidkkYL62/56 NK cells Normal PhunjooFL11 B-cells Normal UklmebcPX10 B-cells Normal WzysrxcPX43 B-cells subset Normal QwozmdyOK36 Ramos-leukocyte Normal FfikozbWW007 Dendritic Normal QfdweavHW331 B-cells Normal Patternkappa/lambda B-cells Normal PatternTRBC1 T-cells Normal, polytypicFlow cytometric analysis of the pleural fluid reveals that 95% of total events have the CD45 and side scatter properties of lymphocytes.The lymphocytes are composed of a mixture of heterogeneous T-cells (75%; CD4:CD8 ratio = 2.48), NK cells (15%) and polytypic B-cells (8%).OVN/NZ 06/23/2024 Performed By: #### F CLLRFLX ####[facility] LABIA [id number] [place] [address] [place] GROSS DESCRIPTION Normal [facility] Comment on above: Order Comment: Speci men Type: SPECIMEN FROM PLEURA OBTAINED BY THORACENTESISOrdering Facility: Address: [address] [place] [address] Result Comment: A. P leural Cavity, RightRECEIVED 10 MLS PLEURAL FLUID Performed By: #### F CLLRFLX ####[facility]CLIA [id number] [place] [address] [place] INTERPRETATION Normal [facility] Comment on above: Order Comment: Speci men Type: SPECIMEN FROM PLEURA OBTAINED BY THORACENTESISOrdering Facility: Address: [address] [place] [address] Result Comment: Ther e is no immunophenotypic evidence of involvement by a lymphoproliferative disorder. Correlation with the clinical findings is suggested. Performed By: #### F CLLRFLX ####[facility]CLIA [id number] [place] [address] [place] Glucose Fld-mCncon 5 Glucose (Body fld) [Mass/Vol] 112 mg/dL Normal See Comment [facility] Comment on above: Order Comment: Speci men Type: SPECIMEN FROM PLEURA OBTAINED BY THORACENTESISOrdering Facility: Address: [address] [place] [address] Result Comment: Syno vial fluid: Synovial fluid glucose measurement may be useful in classifying various joint disorders. A concurrent plasma glucose measurement should be performed to determine the glucose plasma minus glucose synovial fluid???difference, which is normally <= 10.0 mg/dL.Artificial lowering of synovial fluid glucose, due to glycolytic action of leukocytes, may result from analyses that occur more than one hour from the time of collection.Reference: 1. CLSI. Analysis of Body Fluids in Clinical Chemistry Approved Guideline. CLSI document C49A. RAJEEV Bui: Clinical Laboratory Standards [place]: 2007. Performed By: #### 2 344-0, 2529-6, 2881-1 ####[facility]CLIA [id number] [place] [address] [place] HISTORY PHYSICALon HISTORY PHYSICAL Normal [facility] LDH Fld-cCncon 06-22-2024 LDH (Body fld) [Catalytic activity/Vol] 100 U/L Normal See Comment [facility] Comment on above: Order Comment: Speci men Type: SPECIMEN FROM PLEURA OBTAINED BY THORACENTESISOrdering Facility: Address: [address] [place] [address] Result Comment: Pleu ral fluids: Pleural fluid lactate dehydrogenase (LDH) measurements may be useful for classifying pleural effusions as exudates. A ratio of pleural fluid LDH to a concurrent serum LDH > 0.6 is suggestive of exudate.Peritoneal fluids: Ascitic fluid LDH measurements may aid in characterizing secondary peritonitis and should be interpreted along with other clinical and laboratory information.Synovial fluids: Synovial fluid LDH measurements may be useful as an inflammatory marker for various arthritic conditions and should be interpreted along with other clinical and laboratory information.Reference: 1. CLSI. Analysis of Body Fluids in Clinical Chemistry Approved Guideline. CLSI document C49A. Hao, [place]: Clinical Laboratory Standards [place]: 2007.Reference: 2. Rafael STARK, Fei Doyle. Body fluid analysis: clinical utility and applicability of published studies to guide interpretation of today's laboratory testing in serous fluids. Crit Rev Clin Lab Sci, 2013:50(4,5):107 to 124.Reference: 3. Flaca Najera, Dougie Doyle, [place] STARK. Lactate dehydrogenase activity and its isoenzymes in serum and synovial fluid of patients with rheumatoid arthritis and osteoarthritis. J Rheumatol. 1992:19:529 to 533. Performed By: #### 2 344-0, 2529-6, 2881-1 ####[facility]IA [id number] [place] [address] [place] MANUAL DIFFERENTIAL, BODY FL UIDon 06-22-2024 DIF TTL, BODY FLUID 100 cells counted Normal [facility] Comment on above: Order Comment: Speci men Type: SPECIMEN FROM PLEURA OBTAINED BY THORACENTESISOrdering Facility: Address: [address] [place] [address] Performed By: #### C CBF, [id number] ####[facility]CLIA [id number] [place] [address] [place] LYMPH%, BF 80 % High 18-36 [facility] Comment on above: Order Comment: Speci men Type: SPECIMEN FROM PLEURA OBTAINED BY THORACENTESISOrdering Facility: Address: [address] [place] [address] Performed By: #### C CBF, [id number] ####[facility]IA [id number] [place] [address] [place] MACRO%, BF 6 % Low 64-80 [facility] Comment on above: Order Comment: Speci men Type: SPECIMEN FROM PLEURA OBTAINED BY THORACENTESISOrdering Facility: Address: [address] [place] [address] Performed By: #### C CBF, [id number] ####[facility]CLIA [id number] [place] [address] [place] MESO %, BF 1 % Normal 0-2 [facility] Comment on above: Order Comment: Speci men Type: SPECIMEN FROM PLEURA OBTAINED BY THORACENTESISOrdering Facility: Address: [address] [place] [address] Performed By: #### C CBF, [id number] ####[facility]IA [id number] [place] [address] [place] MONO% BF 6 % Normal [facility] Comment on above: Order Comment: Speci men Type: SPECIMEN FROM PLEURA OBTAINED BY THORACENTESISOrdering Facility: Address: [address] [place] [address] Performed By: #### C CBF, [id number] ####[facility]IA [id number] [place] [address] [place] NEUT%, BF 6 % High 0-1 [facility] Comment on above: Order Comment: Speci men Type: SPECIMEN FROM PLEURA OBTAINED BY THORACENTESISOrdering Facility: Address: [address] [place] [address] Performed By: #### C CBF, [id number] ####[facility] [id number] [place] [address] [place] REAC LYMPH %, BF 1 % Normal [facility] Comment on above: Order Comment: Speci men Type: SPECIMEN FROM PLEURA OBTAINED BY THORACENTESISOrdering Facility: Address: [address] [place] [address] Performed By: #### C CBF, [id number] ####[facility]CLIA [id number] [place] [address] [place] OPERATIVE NOon 06-22-2024 OPERATIVE NO Normal [facility] Prot Fld-mCncon 06-22-2024 Protein (Body fld) [Mass/Vol] 2.6 g/dL Normal See Comment [facility] Comment on above: Order Comment: Speci men Type: SPECIMEN FROM PLEURA OBTAINED BY THORACENTESISOrdering Facility: Address: [address] [place] [address] Result Comment: Sero us fluids: Effusions are the accumulation of clinically detected fluid in any of the serous cavities. Effusions are further into transudates and exudates, which aid in determining the etiology of the effusion.Transudate: Body fluid total protein measurement < 3.0 g/dL. A ratio of serous fluid total protein to a concurrent serum total protein < 0.5 indicates a transudate.Exudate: Body fluid total protein measurement >= 3.0 g/dL. A ratio of serous fluid total protein to a concurrent serum total protein >= 0.5 indicates an exudate.Reference: 1. CLSI. Analysis of Body Fluids in Clinical Chemistry Approved Guideline. CLSI document C49A. RAJEEV Bui: Clinical Laboratory Standards [place]: 2007. Performed By: #### 2 344-0, 2529-6, 2881-1 ####[facility]IA [id number] [address] [address] [place] CNOVon 06-01-2024 CNOV Normal [facility] Basic metabolic 2000 panelon 05-29-2024 Anion gap [Moles/Vol] 13 mmol/L Normal 8-15 [facility] Comment on above: Order Comment: Speci men Type: BLOOD SPECIMENOrdering Facility: Address: [address] [place] [address] Performed By: #### 2 4321-2 ####[facility] [id number] [place] [address] [place] Calcium [Mass/Vol] 9.3 mg/dL Normal 8.5-10.2 [facility] Comment on above: Order Comment: Speci men Type: BLOOD SPECIMENOrdering Facility: Address: [address] [place] [address] Performed By: #### 2 4321-2 ####[facility]CLIA [id number] [place] [address] [place] Chloride [Moles/Vol] 100 mmol/L Normal 98-107 [facility] Comment on above: Order Comment: Speci men Type: BLOOD SPECIMENOrdering Facility: Address: [address] [place] [address] Performed By: #### 2 4321-2 ####[facility]IA [id number] [address] [address] [place] CO2 [Moles/Vol] 29 mmol/L Normal 22-30 [facility] Comment on above: Order Comment: Speci men Type: BLOOD SPECIMENOrdering Facility: Address: [address] [place] [address] Performed By: #### 2 4321-2 ####[facility]IA [id number] [place] [address] [place] Creatinine [Mass/Vol] 1.19 mg/dL Normal 0.73-1.22 [facility] Comment on above: Order Comment: Alexandru campos Type: BLOOD SPECIMENOrdering Facility: Address: [address] [place] [address] Performed By: #### 2 4321-2 ####[facility] [id number] [place] [address] [place] Creatinine and Glomerular filtration rate.predicted panel (S/P/Bld) 64 mL/min/1.73m??? Normal >=60 [facility] Comment on above: Order Comment: Alexandru campos Type: BLOOD SPECIMENOrdering Facility: Address: [address] [place] [address] Result Comment: Kristel mated Glomerular Filtration Rate (eGFR) is calculated using the 2020 CKD-EPI creatinine equation. This equation utilizes serum creatinine, sex, and age as parameters. The creatinine assay has traceable calibration to isotope dilution-mass spectrometry. Refer to KDIGO guidelines for clinical interpretation. In patients with unstable renal function, e.g. those with acute kidney injury, the eGFR may not accurately reflect actual GFR. Performed By: #### 2 4321-2 ####[facility] [id number] [place] [address] [place] Glucose [Mass/Vol] 158 mg/dL High 74-99 [facility] Comment on above: Order Comment: Alexandru campos Type: BLOOD SPECIMENOrdering Facility: Address: [address] [place] [address] Result Comment: The [place] Diabetes Association (ADA) provides guidance for cutoff values for fasting glucose and random glucose. The ADA defines fasting as no caloric intake for at least 8 hours. Fasting plasma glucose results between 100 to 125 mg/dL indicate increased risk for diabetes (prediabetes).Fasting plasma glucose results greater than or equal to 126 mg/dL meet the criteria for diagnosis of diabetes. In the absence of unequivocal hyperglycemia, results should be confirmed by repeat testing. In a patient with classic symptoms of hyperglycemia or hyperglycemic crisis, random plasma glucose results greater than or equal to 200 mg/dL meet the criteria for diagnosis of diabetes.Reference: Standards of Medical Care in Diabetes 2016, [place] Diabetes Association. Diabetes Care. 2016.39(Suppl 1). Performed By: #### 2 4321-2 ####[facility] [id number] [place] [address] [place] Potassium [Moles/Vol] 4.1 mmol/L Normal 3.7-5.1 [facility] Comment on above: Order Comment: Speci men Type: BLOOD SPECIMENOrdering Facility: Address: [address] [place] [address] Performed By: #### 2 4321-2 ####[facility] LABIA [id number] [place] [address] [place] Sodium [Moles/Vol] 142 mmol/L Normal 136-144 [facility] Comment on above: Order Comment: Antonellai beth Type: BLOOD SPECIMENOrdering Facility: Address: [address] [place] [address] Performed By: #### 2 4321-2 ####[facility] LABIA [id number] [place] [address] [place] Urea nitrogen [Mass/Vol] 28 mg/dL High 9-24 [facility] Comment on above: Order Comment: Antonellai men Type: BLOOD SPECIMENOrdering Facility: Address: [address] [place] [address] Performed By: #### 2 4321-2 ####[facility] LABIA [id number] [place] [address] [place] CNPNon 05-25-2024 CNPN Normal [facility] ALBUMIN, BODY FLUIDon 2023 Albumin (Body fld) [Mass/Vol] 1.4 g/dL See Comment [facility] Comment on above: Body Fluid Albumin m ay be used in classifying ascitic fluid into [...] document C49A. RAJEEV Bui: Clinical Laboratory Standards [place]: 2007. 2. Dionicio SERNA. Serum to ascites albumin gradient. UpToDate. 2015. Accessed on September 28, 2015. BODY FLUID CELL COUNTOrdered By: Britton Andrews on 05-19-2024 RBC Manual cnt (Body fld) [#/Vol] /uL NINF - 2000 /uL [facility] Specimen source Nom (Body fld) Pleural Cavity, Right [facility] WBC Manual cnt (Body fld) [#/Vol] 443 /uL NINF - 1000 /uL [facility] CHOLESTEROL BFLon 05-19-2024 Cholesterol (Body fld) [Mass/Vol] 30 mg/dL See Comment [facility] Comment on above: SYNOVIAL FLUIDS: Synovial fluid cholesterol measurement may be useful in classifying various joint disorders. The reference range for adult synovial fluid cholesterol measurement is less than or equal to 65% of the concurrent plasma cholesterol measurement. SEROUS FLUIDS: Serous fluid cholesterol measurement may be useful in determining the etiology of the effusion. A serous fluid cholesterol measurement >200 mg/dL is suggestive of a pseudochylous effusion. A serous fluid cholesterol measurement greater than or equal to 45 mg/dL is suggestive of an exudate. A serous fluid cholesterol measurement <45 mg/dL is suggestive of a transudate. Reference: 1. CLSI. Analysis of Body Fluids in Clinical Chemistry; Approved Guideline. CLSI document C49-A. RAJEEV Bui: Clinical Laboratory Standards [place]; 2007. Comprehensive metabolic 2000 panelon 05-19-2024 Albumin [Mass/Vol] 3.8 g/dL Low 3.9 - 4.9 g/dL [facility] ALP [Catalytic activity/Vol] 174 U/L High 38 - 113 U/L [facility] ALT [Catalytic activity/Vol] 22 U/L 10 - 54 U/L [facility] Anion gap [Moles/Vol] 16 mmol/L High 8 - 15 mmol/L [facility] AST [Catalytic activity/Vol] 28 U/L 14 - 40 U/L [facility] Bilirubin [Mass/Vol] 0.7 mg/dL 0.2 - 1 .3 mg/dL [facility] Calcium [Mass/Vol] 9.1 mg/dL 8.5 - 10. 2 mg/dL [facility] Chloride [Moles/Vol] 98 mmol/L 98 - 10 7 mmol/L [facility] CO2 [Moles/Vol] 28 mmol/L 22 - 30 mmol/L [facility] Creatinine [Mass/Vol] 1.14 mg/dL 0.73 - 1.22 mg/dL [facility] GFR/1.73 sq M.predicted among non-blacks MDRD (S/P/Bld) [Vol rate/Area] 68 mL/min/{1.73_m2} - PINF [facility] Comment on above: Estimated Glomerular Filtration Rate (eGFR) is calculated using the 2020 CKD-EPI creatinine equation. This equation utilizes serum creatinine, sex, and age as parameters. The creatinine assay has traceable calibration to isotope dilution-mass spectrometry. Refer to KDIGO guidelines for clinical interpretation. In patients with unstable renal function, e.g. those with acute kidney injury, the eGFR may not accurately reflect actual GFR. Glucose [Mass/Vol] 112 mg/dL High 74 - 99 mg/dL [facility] Comment on above: The [place] Diabete s Association (ADA) provides guidance for cutoff values for fasting glucose and random glucose. The ADA defines fasting as no caloric intake for at least 8 hours. Fasting plasma glucose results between 100 to 125 mg/dL indicate increased risk for diabetes (prediabetes). Fasting plasma glucose results greater than or equal to 126 mg/dL meet the criteria for diagnosis of diabetes. In the absence of unequivocal hyperglycemia, results should be confirmed by repeat testing. In a patient with classic symptoms of hyperglycemia or hyperglycemic crisis, random plasma glucose results greater than or equal to 200 mg/dL meet the criteria for diagnosis of diabetes. Reference: Standards of Medical Care in Diabetes 2016, [place] Diabetes Association. Diabetes Care. 2016.39(Suppl 1). Interpretation and review of laboratory results Abnormal [facility] Potassium [Moles/Vol] 3.4 mmol/L Low 3.7 - 5.1 mmol/L [facility] Protein [Mass/Vol] 6.6 g/dL 6.3 - 8.0 g/dL [facility] Sodium [Moles/Vol] 142 mmol/L 136 - 144 mmol/L [facility] Urea nitrogen [Mass/Vol] 21 mg/dL 9 - 24 mg/dL [facility] GLUCOSE, BODY FLUIDon 2023 Glucose (Body fld) [Mass/Vol] 106 mg/dL See Comment [facility] Comment on above: Synovial fluid: Syno vial fluid glucose measurement may be useful in classifying various joint disorders. A concurrent plasma glucose measurement should be performed to determine the glucose plasma minus glucose synovial fluid difference, which is normally <= 10.0 mg/dL. Artificial lowering of synovial fluid glucose, due to glycolytic action of leukocytes, may result from analyses that occur more than one hour from the time of collection. Reference: 1. CLSI. Analysis of Body Fluids in Clinical Chemistry Approved Guideline. CLSI document C49A. RAJEEV Bui: Clinical Laboratory Standards [place]: 2007. LACTATE DEHYDROGENASEon LDH [Catalytic activity/Vol] 209 U/L 135 - 225 U/L [facility] Comment on above: Hemolysis present. T he origin of the hemolysis, in vitro versus an in vivo hemolytic process, cannot be distinguished via this assay alone. In vitro hemolysis may lead to non-physiological (spurious) elevation in lactate dehydrogenase (LDH) results. The result should be interpreted in context of the clinical setting and other test results. Suggest reorder as clinically indicated. LACTATE DEHYDROGENASE, BODY FLUIDon 05-19-2024 LDH (Body fld) [Catalytic activity/Vol] 86 U/L See Comment [facility] Comment on above: Pleural fluids: Pleu ral fluid lactate dehydrogenase (LDH) measurements may be [...] document C49A. RAJEEV Bui: Clinical Laboratory Standards [place]: 2007. Reference: 2. Rafael STARK, Fei Doyle. [...] and osteoarthritis. J Rheumatol. 1992:19:529 to 533. LDH [Catalytic activity/Vol] on 05-19-2024 Interpretation and review of laboratory results Normal [facility] Laboratoryon 05-19-2024 Fluid Nom (Body fld) Pleural Cavity, Right [facility] Laboratory - Specimen inform ationOrdered By: Britton Andrews on 05-19-2024 Clarity (Unsp spec) Clear Clear [facility] Color (Body fld) Yellow Yellow [facility] No Panel Informationon 05-19 [facility] PH PLEURAL FLUID (FOR USE [facility])on 05-19-2024 Fluid Nom (Body fld) Pleural Cavity, Right [facility] pH (Body fld) 7.9 [pH] [facility] Comment on above: No reference range h as been established for this specimen type. This test was developed, and its performance characteristics determined by the [facility] Department of Pathology and Laboratory Medicine. It has not been cleared or approved by the FDA. The [facility] Department of Pathology and Laboratory Medicine is regulated under CLIA as qualified to perform high-complexity testing. This test is used for clinical purposes. It should not be regarded as investigational or for research. [facility] PROTEIN, BODY FLUIDon 2023 Protein (Body fld) [Mass/Vol] 2.2 g/dL See Comment [facility] Comment on above: Serous fluids: Effus ions are the accumulation of clinically detected fluid [...] document C49A. RAJEEV Bui: Clinical Laboratory Standards [place]: 2007. TRIGLYCERIDE BFLon 4 Triglyceride (Body fld) [Mass/Vol] 13 mg/dL [facility] Comment on above: Synovial fluids: Syn ovial fluid triglycerides measurement may be useful in classifying various joint disorders. The reference range for adult synovial fluid triglycerides measurement is <=40% of the concurrent plasma cholesterol measurement. Serous fluids: Serous fluid triglycerides measurement may be useful in classifying the effusion as chylous or nonchylous. A serous fluid triglycerides measurement >110 mg/dL is suggestive of a chylous effusion. A serous fluid triglycerides measurement <=110 mg/dL is suggestive of a nonchylous effusion. Reference: 1. CLSI. Analysis of Body Fluids in Clinical Chemistry; Approved Guideline. CLSI document C49A. RAJEEV Bui: Clinical Laboratory Standards [place]; 2007. Albumin Fld-[facility] 4 Albumin (Body fld) [Mass/Vol] 1.4 g/dL Normal See Comment [facility] Comment on above: Order Comment: Speci men Type: FLUID SPECIMENOrdering Facility: Address: [address] [place] [address] Result Comment: Body Fluid Albumin may be used in classifying ascitic fluid into high-gradient or low-gradient fluids as determined by the serum-ascites albumin gradient, which is calculated as (serum albumin) - (ascites albumin).The serum and fluid specimens should be drawn with a minimal intervening time interval to appropriately analyze the gradient.Gradients greater than or equal to 1.1 g/dL are considered high, which reflects a high hydrostatic pressure, commonly caused by: cirrhosis or other processes generating portal hypertension.In samples where gradients are less than 1.1 g/dL, ascites generated from conditions without portal hypertension should be considered.Reference:1. CLSI. Analysis of Body Fluids in Clinical Chemistry Approved Guideline. CLSI document C49A. RAJEEV Bui: Clinical Laboratory Standards [place]: 2007.2. Dionicio SERNA. Serum to ascites albumin gradient. UpToDate. 2015. Accessed on September 28, 2015. Performed By: #### 2 344-0, 2529-6, 2881-1, 00177-5, 1747-5, 86429-1 ####[facility] [id number] [place] [address] [place] BF STAFF REVIEW (LAB ORDER)o n 05-18-2024 BF REVIEW Reviewed by Lisy Acuña M.D., Ph.D Normal [facility] Comment on above: Order Comment: Speci men Type: FLUID SPECIMENOrdering Facility: Address: [address] [place] [address] Performed By: #### C CBF, [id number], [id number] ####[facility] [id number] [address] [place] BF STAFF COMMENTS Numerous mature polymorphous lymphocytes. If there is clinical concern for a lymphoproliferative disorder, please order flow cytometric analysis. Normal [facility] Comment on above: Order Comment: Speci men Type: FLUID SPECIMENOrdering Facility: Address: [address] [place] [address] Performed By: #### C CBF, [id number], [id number] ####[facility]CL[facility] [id number] [place] [address] [place] BODY FLUID CELL COUNTon 12-0 Clarity (Unsp spec) Clear Normal Clear [facility] Comment on above: Order Comment: Speci men Type: FLUID SPECIMENOrdering Facility: Address: [address] [place] [address] Performed By: #### C CBF, [id number], [id number] ####[facility] [id number] [place] [address] [place] Color (Body fld) Yellow Normal Yellow [facility] Comment on above: Order Comment: Speci men Type: FLUID SPECIMENOrdering Facility: Address: [address] [place] [address] Performed By: #### C CBF, [id number], [id number] ####[facility] [id number] [place] [address] [place] RBC Manual cnt (Body fld) [#/Vol] <2000 Normal <2000 [facility] Comment on above: Order Comment: Speci men Type: FLUID SPECIMENOrdering Facility: Address: [address] [place] [address] Performed By: #### C CBF, [id number], [id number] ####[facility]CL[facility] [id number] [place] [address] [place] Specimen source Nom (Body fld) Pleural Cavity, Right Normal [facility] Comment on above: Order Comment: Speci men Type: FLUID SPECIMENOrdering Facility: Address: [address] [place] [address] Performed By: #### C CBF, [id number], [id number] ####[facility] [id number] [place] [address] [place] WBC Manual cnt (Body fld) [#/Vol] 443 /uL Normal <1000 [facility] Comment on above: Order Comment: Speci men Type: FLUID SPECIMENOrdering Facility: Address: [address] [place] [address] Performed By: #### C CBF, [id number], [id number] ####[facility] [id number] [place] [address] [place] Bacteria Fld Culton 05-18-20 24 Bacteria identified Cx Nom (Body fld) CULTURE, BODY FLD: No growth GRAM STAIN: No organisms seen Few Polymorphonuclear leukocytes Many Mononuclear cells Gram stain performed on cytospun specimen. Gram stain from primary specimen Normal [facility] Comment on above: Performed By: #### 6 11-4, 48123-7 ####[facility]CL[facility] [id number] [place] [address] [place] CNOVon 05-18-2024 CNOV Normal [facility] CYTOLOGY NON-GYNon 4 CASE REPORT Normal [facility] Comment on above: Order Comment: Speci men Type: FLUID SPECIMENOrdering Facility: Address: [address] [place] [address] Result Comment: [facility] Cytology Report Case: [id number] Provider: Louise Douglas MD Collected: 05/18/2024 12:43 PMOrdering Location: Pulmonary Medicine Received: 05/19/2024 05:22 AMPathologist: Tracy Collins MDSpecimen: Pleural Cavity, Right Performed By: #### C YTONON ####[facility] [id number] [place] [address] [place] CLINICAL HISTORY pleural effusion Normal Cl [facility] Comment on above: Order Comment: Speci men Type: FLUID SPECIMENOrdering Facility: Address: [address] [place] [address] Performed By: #### C YTONON ####[facility] [id number] [place] [address] [place] FINAL DIAGNOSIS Normal [facility] Comment on above: Order Comment: Speci men Type: FLUID SPECIMENOrdering Facility: Address: [address] [place] [address] Result Comment: A - Pleural Cavity, Right, Sterile Fluid/Body Fluid Negative for malignant cells. Chronic inflammation.The following cell blocks were associated with this case:A1\X09\Cell Block, Alcohol Fixed\X09\ Performed By: #### C YTONON ####[facility] [id number] [place] [address] [place] FINAL PERFORMING LAB Normal [facility] Comment on above: Order Comment: Alexandru campos Type: FLUID SPECIMENOrdering Facility: Address: [address] [place] [address] Result Comment: Tech nical component, visual stylist screening performed at [facility], [address] [place] [address] CLIA# [id number] interpretation performed at [facility], [address] [place] [address] CLIA# [id number] Director: Ramos Strickland M.D. Performed By: #### C YTONON ####[facility] [id number] [place] [address] [place] GROSS DESCRIPTION Normal [facility] Comment on above: Order Comment: Antonellai beth Type: FLUID SPECIMENOrdering Facility: Address: [address] [place] [address] Result Comment: A. P leural Cavity, Right20 cc hazy yellow fluid with material. ThinPrep and Cell Block prepared. Performed By: #### C YTONON ####[facility] [id number] [place] [address] [place] Cholest Fld-mCncon 4 Cholesterol (Body fld) [Mass/Vol] 30 mg/dL Normal See Comment [facility] Comment on above: Order Comment: Antonellai beth Type: FLUID SPECIMENOrdering Facility: Address: [address] [place] [address] Result Comment: SYNO VIAL FLUIDS:Synovial fluid cholesterol measurement may be useful in classifying various joint disorders. The reference range for adult synovial fluid cholesterol measurement is less than or equal to 65% of the concurrent plasma cholesterol measurement.SEROUS FLUIDS:Serous fluid cholesterol measurement may be useful in determining the etiology of the effusion. A serous fluid cholesterol measurement >200 mg/dL is suggestive of a pseudochylous effusion. A serous fluid cholesterol measurement greater than or equal to 45 mg/dL is suggestive of an exudate. A serous fluid cholesterol measurement <45 mg/dL is suggestive of a transudate.Reference:1. CLSI. Analysis of Body Fluids in Clinical Chemistry; Approved Guideline. CLSI document C49-A. RAJEEV Bui: Clinical Laboratory Standards [place]; 2007. Performed By: #### 2 344-0, 2529-6, 2881-1, 70425-4, 1747-5, 76831-0 ####[facility] [id number] [place] [address] [place] Fluid Nom (Body fld) Pleural Cavity, Right Normal [facility] Comment on above: Order Comment: Speci men Type: FLUID SPECIMENOrdering Facility: Address: [address] [place] [address] Performed By: #### 2 344-0, 2529-6, 2881-1, 06791-0, 1747-5, 30356-6 ####[facility] [id number] [address] [place] Performed By: #### L [id number] ####[facility] [id number] [facility] [place] [id number] [facility] [place] Comprehensive metabolic 2000 panelon 05-18-2024 Albumin [Mass/Vol] 3.8 g/dL Low 3.9-4.9 [facility] Comment on above: Order Comment: Speci men Type: BLOOD SPECIMENOrdering Facility: Address: [address] [place] [address] Performed By: #### 2 532-0, 20079-8 ####[facility] [id number] [facility] [place] [id number] [place] ALP [Catalytic activity/Vol] 174 U/L High 38-113 [facility] Comment on above: Order Comment: Speci men Type: BLOOD SPECIMENOrdering Facility: Address: [address] [place] [address] Performed By: #### 2 532-0, 09668-6 ####[facility] [id number] [place] [address] [place] ALT [Catalytic activity/Vol] 22 U/L Normal 10-54 [facility] Comment on above: Order Comment: Speci men Type: BLOOD SPECIMENOrdering Facility: Address: [address] [place] [address] Performed By: #### 2 532-0, 30493-8 ####[facility] [id number] [place] [address] [place] Anion gap [Moles/Vol] 16 mmol/L High 8-15 [facility] Comment on above: Order Comment: Speci men Type: BLOOD SPECIMENOrdering Facility: Address: [address] [place] [address] Performed By: #### 2 532-0, 16179-5 ####[facility] [id number] [place] [address] [place] AST [Catalytic activity/Vol] 28 U/L Normal 14-40 [facility] Comment on above: Order Comment: Speci men Type: BLOOD SPECIMENOrdering Facility: Address: [address] [place] [address] Performed By: #### 2 532-0, 72074-4 ####[facility] [id number] [place] [address] [place] Bilirubin [Mass/Vol] 0.7 mg/dL Normal 0.2-1.3 [facility] Comment on above: Order Comment: Speci men Type: BLOOD SPECIMENOrdering Facility: Address: [address] [place] [address] Performed By: #### 2 532-0, 73601-7 ####[facility] [id number] [place] [address] [place] Calcium [Mass/Vol] 9.1 mg/dL Normal 8.5-10.2 [facility] Comment on above: Order Comment: Speci men Type: BLOOD SPECIMENOrdering Facility: Address: [address] [place] [address] Performed By: #### 2 532-0, 10470-3 ####[facility] [id number] [place] [id number] [place] Chloride [Moles/Vol] 98 mmol/L Normal 98-107 [facility] Comment on above: Order Comment: Speci men Type: BLOOD SPECIMENOrdering Facility: Address: [address] [place] [address] Performed By: #### 2 532-0, 12716-8 ####[facility] [id number] [place] [address] [place] CO2 [Moles/Vol] 28 mmol/L Normal 22-30 [facility] Comment on above: Order Comment: Speci men Type: BLOOD SPECIMENOrdering Facility: Address: [address] [place] [address] Performed By: #### 2 532-0, 49824-0 ####[facility] [id number] [place] [address] [place] Creatinine [Mass/Vol] 1.14 mg/dL Normal 0.73-1.22 [facility] Comment on above: Order Comment: Speci men Type: BLOOD SPECIMENOrdering Facility: Address: [address] [place] [address] Performed By: #### 2 532-0, 91013-0 ####[facility] [id number] [place] [address] [place] Creatinine and Glomerular filtration rate.predicted panel (S/P/Bld) 68 mL/min/1.73m??? Normal >=60 [facility] Comment on above: Order Comment: Speci men Type: BLOOD SPECIMENOrdering Facility: Address: [facility] [place] [address] Result Comment: Kristel mated Glomerular Filtration Rate (eGFR) is calculated using the 2020 CKD-EPI creatinine equation. This equation utilizes serum creatinine, sex, and age as parameters. The creatinine assay has traceable calibration to isotope dilution-mass spectrometry. Refer to KDIGO guidelines for clinical interpretation. In patients with unstable renal function, e.g. those with acute kidney injury, the eGFR may not accurately reflect actual GFR. Performed By: #### 2 532-0, 49604-9 ####[facility] [id number] [place] [address] [place] Glucose [Mass/Vol] 112 mg/dL High 74-99 [facility] Comment on above: Order Comment: Specsyl campos Type: BLOOD SPECIMENOrdering Facility: Address: [address] [place] [address] Result Comment: The [place] Diabetes Association (ADA) provides guidance for cutoff values for fasting glucose and random glucose. The ADA defines fasting as no caloric intake for at least 8 hours. Fasting plasma glucose results between 100 to 125 mg/dL indicate increased risk for diabetes (prediabetes).Fasting plasma glucose results greater than or equal to 126 mg/dL meet the criteria for diagnosis of diabetes. In the absence of unequivocal hyperglycemia, results should be confirmed by repeat testing. In a patient with classic symptoms of hyperglycemia or hyperglycemic crisis, random plasma glucose results greater than or equal to 200 mg/dL meet the criteria for diagnosis of diabetes.Reference: Standards of Medical Care in Diabetes 2016, [place] Diabetes Association. Diabetes Care. 2016.39(Suppl 1). Performed By: #### 2 532-0, 28159-7 ####[facility] [id number] [place] [address] [place] Potassium [Moles/Vol] 3.4 mmol/L Low 3.7-5.1 [facility] Comment on above: Order Comment: Alexandru campos Type: BLOOD SPECIMENOrdering Facility: Address: [address] [place] [address] Performed By: #### 2 532-0, 39135-6 ####[facility] [id number] [address] [address] [place] Protein [Mass/Vol] 6.6 g/dL Normal 6.3-8.0 [facility] Comment on above: Order Comment: Speci men Type: BLOOD SPECIMENOrdering Facility: Address: [address] [place] [address] Performed By: #### 2 532-0, ####[facility] [id number] [place] [address] [place] Sodium [Moles/Vol] 142 mmol/L Normal 136-144 [facility] Comment on above: Order Comment: Speci men Type: BLOOD SPECIMENOrdering Facility: Address: [address] [place] [address] Performed By: #### 2 532-0, ####[facility] [id number] [place] [address] [place] Urea nitrogen [Mass/Vol] 21 mg/dL Normal 9-24 [facility] Comment on above: Order Comment: Speci men Type: BLOOD SPECIMENOrdering Facility: Address: [address] [place] [address] Performed By: #### 2 532-0, 13195-3 ####[facility] [id number] [place] [address] [place] FATTY ACIDS PROFILE, ESSENTI Dewayne 05-18-2024 A-LINOLENIC ACID, C18 3W3 43 nmol/mL Normal 20-200 [facility] Comment on above: Order Comment: Speci men Type: BLOOD SPECIMENOrdering Facility: Address: [address] [place] [address] Performed By: #### C FAPRO ####[facility] [id number] [place] [address] ARACHIDIC ACID, C20 0 18 nmol/mL Normal 8-43 [facility] Comment on above: Order Comment: Speci men Type: BLOOD SPECIMENOrdering Facility: Address: [address] [place] [address] Performed By: #### C FAPRO ####[facility] [id number] [place] [address] ARACHIDONIC ACID, C20 4W6 672 nmol/mL Normal 310-1420 [facility] Comment on above: Order Comment: Speci men Type: BLOOD SPECIMENOrdering Facility: Address: [address] [place] [address] Performed By: #### C FAPRO ####[facility] [id number] [place] [address] DHA, C22 6W3 99 nmol/mL Normal 45-365 [facility] Comment on above: Order Comment: Speci men Type: BLOOD SPECIMENOrdering Facility: Address: [address] [place] [address] Performed By: #### C FAPRO ####[facility] [id number] [place] [address] DOCOSENOIC ACID, C22 1 4 nmol/mL Normal 1-10 [facility] Comment on above: Order Comment: Speci men Type: BLOOD SPECIMENOrdering Facility: Address: [address] [place] [address] Performed By: #### C FAPRO ####[facility] [id number] [place] [address] DPA, C22 5W3 30 nmol/mL Normal 13-75 [facility] Comment on above: Order Comment: Speci men Type: BLOOD SPECIMENOrdering Facility: Address: [address] [place] [address] Performed By: #### C FAPRO ####[facility] [id number] [place] [address] DPA, C22 5W6 13 nmol/mL Normal 6-55 [facility] Comment on above: Order Comment: Speci men Type: BLOOD SPECIMENOrdering Facility: Address: [address] [place] [address] Performed By: #### C FAPRO ####[facility] [id number] [place] [address] DTA, C22 4W6 18 nmol/mL Normal 10-40 [facility] Comment on above: Order Comment: Speci men Type: BLOOD SPECIMENOrdering Facility: Address: [address] [place] [address] Performed By: #### C FAPRO ####[facility] [id number] [place] [address] EER FATTY ACIDS PROF, ESSENTIAL SP See Note Normal [facility] Comment on above: Order Comment: Speci men Type: BLOOD SPECIMENOrdering Facility: Address: [address] [place] [address] Result Comment: Auth orized individuals can access the [facility] Report using the following link:[email or web address] By: CHACORTA [address] [place], [place] [address]Rzmygiaied Director: Anne-Marie Correa MD, PhDCLIA Number: [id number] Performed By: #### C FAPRO ####[facility] [id number] [place] [address] EPA, C20 5W3 22 nmol/mL Normal 8-130 [facility] Comment on above: Order Comment: Speci men Type: BLOOD SPECIMENOrdering Facility: Address: [address] [place] [address] Performed By: #### C FAPRO ####[facility] [id number] [place] [address] G-LINOLENIC ACID, C18 3W6 20 nmol/mL Normal 10-120 [facility] Comment on above: Order Comment: Speci men Type: BLOOD SPECIMENOrdering Facility: Address: [address] [place] [address] Performed By: #### C FAPRO ####[facility] [id number] [place] [address] O-V-LYLZFOXCC C20:3W6 93 nmol/mL Normal 45-340 [facility] Comment on above: Order Comment: Speci men Type: BLOOD SPECIMENOrdering Facility: Address: [address] [place] [address] Performed By: #### C FAPRO ####[facility]CL[facility] [id number] [place] [address] HEXADECENOIC ACID, C16 1W9 26 nmol/mL Normal 14-95 [facility] Comment on above: Order Comment: Speci men Type: BLOOD SPECIMENOrdering Facility: Address: [address] [place] [address] Performed By: #### C FAPRO ####[facility] [id number] [place] [address] INTERPRETATION, FATTY ACID PROFILE Normal Normal [facility] Comment on above: Order Comment: Speci men Type: BLOOD SPECIMENOrdering Facility: Address: [address] [place] [address] Result Comment: Norm al fatty acid profile.Results reviewed and interpreted by Rosemarie Painter MD, PhD, FACINTERPRETIVE INFORMATION: Fatty Acids Profile, Essential Ser/PlasThis test does not screen for disorders of peroxisomalbiogenesis/function.This test was developed and its performance characteristicsdetermined by [employer]. It has not been cleared orapproved by the [place] Food and Drug Administration. This test wasperformed in a CLIA certified laboratory and is intended forclinical purposes. Performed By: #### C FAPRO ####[facility]IESCL[facility] [id number] [place] [address] LAURIC ACID, C12 0 22 nmol/mL Normal 1-200 [facility] Comment on above: Order Comment: Speci men Type: BLOOD SPECIMENOrdering Facility: Address: [address] [place] [address] Performed By: #### C FAPRO ####[facility]IESCL[facility] [id number] [place] [address] LINOLEIC ACID, C18 2W6 2079 nmol/mL Normal 3080-2120 [facility] Comment on above: Order Comment: Speci men Type: BLOOD SPECIMENOrdering Facility: Address: [address] [place] [address] Performed By: #### C FAPRO ####[facility]IESCL[facility] [id number] [place] [address] MEAD ACID, C20 3W9 6 nmol/mL Normal 1-35 [facility] Comment on above: Order Comment: Speci men Type: BLOOD SPECIMENOrdering Facility: Address: [address] [place] [address] Performed By: #### C FAPRO ####[facility]IESCL[facility] [id number] [place] [address] MYRISTIC ACID, C14 0 69 nmol/mL Normal 20-520 [facility] Comment on above: Order Comment: Speci men Type: BLOOD SPECIMENOrdering Facility: Address: [address] [place] [address] Performed By: #### C FAPRO ####[facility]IESCL[facility] [id number] [place] [address] NERVONIC ACID, C24 1W9 106 nmol/mL Normal 35-145 [facility] Comment on above: Order Comment: Speci men Type: BLOOD SPECIMENOrdering Facility: Address: [address] [place] [address] Performed By: #### C FAPRO ####[facility]CL[facility] [id number] [place] [address] OLEIC ACID, C18 1W9 1564 nmol/mL Normal 740-3900 [facility] Comment on above: Order Comment: Speci men Type: BLOOD SPECIMENOrdering Facility: Address: [address] [place] [address] Performed By: #### C FAPRO ####[facility]IESCL[facility] [id number] [place] [address] PALMITIC ACID, C16 0 1959 nmol/mL Normal 8216-3625 [facility] Comment on above: Order Comment: Speci men Type: BLOOD SPECIMENOrdering Facility: Address: [address] [place], [place] [address] Performed By: #### C FAPRO ####[facility]IESCL[facility] [id number] [place] [address] PALMITOLEIC ACID, C16 1W7 105 nmol/mL Normal 35-580 [facility] Comment on above: Order Comment: Speci men Type: BLOOD SPECIMENOrdering Facility: Address: [address] [place], [place] [address] Performed By: #### C FAPRO ####[facility]CL[facility] [id number] [place] [address] STEARIC ACID, C18 0 606 nmol/mL Normal 280-1250 [facility] Comment on above: Order Comment: Speci men Type: BLOOD SPECIMENOrdering Facility: Address: [address] [place] [address] Performed By: #### C FAPRO ####[facility]CL[facility] [id number] [place] [address] TOTAL FATTY ACIDS 7.7 mmol/L Normal 4.5-15.0 [facility] Comment on above: Order Comment: Speci men Type: BLOOD SPECIMENOrdering Facility: Address: [address] [place] [address] Performed By: #### C FAPRO ####[facility]IESCL[facility] [id number] [place] [address] TOTAL MONOUNSATURATED ACIDS 1.9 mmol/L Normal 0.9-4.7 [facility] Comment on above: Order Comment: Speci men Type: BLOOD SPECIMENOrdering Facility: Address: [address] [place] [address] Performed By: #### C FAPRO ####[facility]CL[facility] [id number] [place] [address] TOTAL POLYUNSATURATED ACIDS 3.1 mmol/L Normal 2.1-6.2 [facility] Comment on above: Order Comment: Speci men Type: BLOOD SPECIMENOrdering Facility: Address: [address] [place] [address] Performed By: #### C FAPRO ####[facility]IESCL[facility] [id number] [place] [address] TOTAL SATURATED ACIDS 2.7 mmol/L Normal 1.5-5.3 [facility] Comment on above: Order Comment: Speci men Type: BLOOD SPECIMENOrdering Facility: Address: [address] [place] [address] Performed By: #### C FAPRO ####[facility]IESCL[facility] [id number] [place] [address] TOTAL W3 0.19 mmol/L Normal 0.12-0.55 [facility] Comment on above: Order Comment: Speci men Type: BLOOD SPECIMENOrdering Facility: Address: [address] [place] [address] Performed By: #### C FAPRO ####[facility]IESCL[facility] [id number] [place] [address] TOTAL W6 2.9 mmol/L Normal 1.8-5.7 [facility] Comment on above: Order Comment: Speci men Type: BLOOD SPECIMENOrdering Facility: Address: [address] [place] [address] Performed By: #### C FAPRO ####[facility]IESCL[facility] [id number] [place] [address] TRIENE/TETRAENE RATIO 0.009 Normal 0.004-0.051 [facility] Comment on above: Order Comment: Speci men Type: BLOOD SPECIMENOrdering Facility: Address: [address] [place] [address] Performed By: #### C FAPRO ####[facility]CL[facility] [id number] [place] [address] VACCENIC ACID, C18 1W7 110 nmol/mL Normal 50-250 [facility] Comment on above: Order Comment: Speci men Type: BLOOD SPECIMENOrdering Facility: Address: [address] [place] [address] Performed By: #### C FAPRO ####[facility]ATORIESIA [id number] [place] [address] FLOW CYTOMETRY FOR LEUKEMIA/ LYMPHOMA (FCLL) PERFORMABLEon 05-18-2024 FLOW CYTOMETRY ORDER STATUS Results will be reported under F case ID when completed Normal [facility] Comment on above: Order Comment: Speci men Type: FLUID SPECIMENOrdering Facility: Address: [address] [place] [address] Result Comment: Zaire ected result: Previously reported as A bone marrow sample was received for potential flow cytometry studies. Following morphologic review, flow cytometric studies will be ordered by the hematopathologist if testing is indicated. on 05/20/2024 at1:05 PM EST. Performed By: #### F CLLP ####[facility] [id number] [address] FLOW CYTOMETRY FOR LEUKEMIA/ LYMPHOMA (FCLL) REFLEXon 05-18-2024 DIAGNOSIS COMMENT Normal [facility] Comment on above: Order Comment: Speci beth Type: FLUID SPECIMENOrdering Facility: Address: [address] [place] [address] Result Comment: This assay is not designed to detect minimal residual disease, plasma cell neoplasms, or myeloid antigen maturational patterns.This test was developed and its performance characteristics determined by [facility] [place] ([facility]). It has not been cleared or approved by the FDA. [facility] is regulated under CLIA as qualified to perform high-complexity testing. This test is used for clinical purposes. It should not be regarded as investigational or for research. Performed By: #### F CLLRFLX ####[facility] LABCL[facility] [id number] [place] [id number] [place] FINAL PERFORMING LAB Normal [facility] Comment on above: Order Comment: Speci men Type: FLUID SPECIMENOrdering Facility: Address: [address] [place] [address] Result Comment: Diag nostic interpretation performed at [facility], [address] [place] [address] CLIA# [id number] Director: Ramos Strickland M.D. Performed By: #### F CLLRFLX ####[facility] [id number] [place] [address] [place] FLOW CYTOMETRY RESULTS Normal [facility] Comment on above: Order Comment: Speci men Type: FLUID SPECIMENOrdering Facility: Address: [address] [place] [address] Result Comment: Spec imen type: Pleural fluidTotal nucleated cell count: 320,000 totalRed blood cell count: N/ADifferential (serous fluid): See body fluid manual differentialMorphology comments: UnremarkableViability: 91%Flow Cytometry Body Fluid ImmunophenotypingMarker Normal Cell Type Result (Lymphocytes)CD3 T-cells Normal PatternCD4 T-cell subset Normal PatternCD5 T-cells Normal PatternCD7 T/NK-cells Normal PatternCD8 T-cell subset Normal DwcrvveDB46 Myeloid Normal HcrkrhnYV68/56 NK cells Normal NqyscpvJR94 B-cells Normal IqgnrihAV66 Blasts Normal WueerjnUI91 Ramos-leukocyte Normal Patternkappa/lambda B-cells PolytypicFlow cytometric analysis of the fluid reveals that 40% of total events have the CD45 and light scatter properties of lymphocytes. The lymphocytes are composed of T-cells (54%, CD4:CD8 ratio = 22.32), NK cells (37%), and polytypic B-cells (9%). Granulocytic elements are 1% of events. Blasts are not detected. Performed By: #### F CLLRFLX ####[facility] [id number] [place] [address] [place] GROSS DESCRIPTION Normal [facility] Comment on above: Order Comment: Speci men Type: FLUID SPECIMENOrdering Facility: Address: [address] [place] [address] Result Comment: A. P leural Cavity, RightRECEIVED 4 ML OF PLEURAL FLUID Entirely submitted for Flow Cytometry. Performed By: #### F CLLRFLX ####[facility] LABCL[facility] [id number] [place] [address] [place] INTERPRETATION Normal [facility] Comment on above: Order Comment: Alexandru campos Type: FLUID SPECIMENOrdering Facility: Address: [address] [place] [address] Result Comment: Ther e is no evidence of involvement by a lymphoproliferative disorder or abnormal blast population. Correlation with the clinical findings is suggested.SO/MW 05/20/24 Performed By: #### F CLLRFLX ####[facility] LABCLIA [id number] [place] [address] [place] Glucose Fld-mCncon Glucose (Body fld) [Mass/Vol] 106 mg/dL Normal See Comment [facility] Comment on above: Order Comment: Speci beth Type: FLUID SPECIMENOrdering Facility: Address: [address] [place] [address] Result Comment: Syno vial fluid: Synovial fluid glucose measurement may be useful in classifying various joint disorders. A concurrent plasma glucose measurement should be performed to determine the glucose plasma minus glucose synovial fluid???difference, which is normally <= 10.0 mg/dL.Artificial lowering of synovial fluid glucose, due to glycolytic action of leukocytes, may result from analyses that occur more than one hour from the time of collection.Reference: 1. CLSI. Analysis of Body Fluids in Clinical Chemistry Approved Guideline. CLSI document C49A. RAJEEV Bui: Clinical Laboratory Standards [place]: 2007. Performed By: #### 2 344-0, 2529-6, 2881-1, 58951-1, 1747-5, 25355-1 ####[facility] LABCL[facility] [id number] [place] [address] [place] LDH Fld-cCncon 05-18-2024 LDH (Body fld) [Catalytic activity/Vol] 86 U/L Normal See Comment [facility] Comment on above: Order Comment: Alexandru campos Type: FLUID SPECIMENOrdering Facility: Address: [address] [place] [address] Result Comment: Pleu ral fluids: Pleural fluid lactate dehydrogenase (LDH) measurements may be useful for classifying pleural effusions as exudates. A ratio of pleural fluid LDH to a concurrent serum LDH > 0.6 is suggestive of exudate.Peritoneal fluids: Ascitic fluid LDH measurements may aid in characterizing secondary peritonitis and should be interpreted along with other clinical and laboratory information.Synovial fluids: Synovial fluid LDH measurements may be useful as an inflammatory marker for various arthritic conditions and should be interpreted along with other clinical and laboratory information.Reference: 1. CLSI. Analysis of Body Fluids in Clinical Chemistry Approved Guideline. CLSI document C49A. RAJEEV Bui: Clinical Laboratory Standards [place]: 2007.Reference: 2. Rafael STARK, Fei Doyle. Body fluid analysis: clinical utility and applicability of published studies to guide interpretation of today's laboratory testing in serous fluids. Crit Rev Clin Lab Sci, 2013:50(4,5):107 to 124.Reference: 3. Flaca M, Dougie A, [place] STARK. Lactate dehydrogenase activity and its isoenzymes in serum and synovial fluid of patients with rheumatoid arthritis and osteoarthritis. J Rheumatol. 1992:19:529 to 533. Performed By: #### 2 344-0, 2529-6, 2881-1, 40317-4, 1747-5, 76267-7 ####[facility] LABCLIA [id number] [facility] [id number] [address] [place] LDH SerPl-cCncon 05-18-2024 LDH [Catalytic activity/Vol] 209 U/L Normal 135-225 [facility] Comment on above: Order Comment: Alexandru campos Type: BLOOD SPECIMENOrdering Facility: Address: [address] [place] [address] Result Comment: Hemo lysis present. The origin of the hemolysis, in vitro versus an in vivo hemolytic process, cannot be distinguished via this assay alone. In vitro hemolysis may lead to non-physiological (spurious) elevation in lactate dehydrogenase (LDH) results. Theresult should be interpreted in context of the clinical setting and other test results. Suggest reorder as clinically indicated. Performed By: #### 2 532-0, 23297-7 ####[facility] LABCLIA [id number] [place] [address] [place] MANUAL DIFFERENTIAL, BODY FL UIDon 05-18-2024 DIF TTL, BODY FLUID 100 cells counted Normal [facility] Comment on above: Order Comment: Speci men Type: FLUID SPECIMENOrdering Facility: Address: [address] [place] [address] Performed By: #### C CBF, [id number], [id number] ####[facility] LABCLIA [id number] [place] [address] [place] EOSIN%, BF 2 % Normal [facility] Comment on above: Order Comment: Speci men Type: FLUID SPECIMENOrdering Facility: Address: [address] [place] [address] Performed By: #### C CBF, [id number], [id number] ####[facility] LABCLIA [id number] [place] [address] [place] LYMPH%, BF 80 % High 18-36 [facility] Comment on above: Order Comment: Speci men Type: FLUID SPECIMENOrdering Facility: Address: [address] [place] [address] Result Comment: Zaire ected result: Previously reported as 75 % on 05/19/2024 at 6:29 AM EST. Performed By: #### C CBF, [id number], [id number] ####[facility] LABCLIA [id number] [place] [address] [place] MACRO%, BF 4 % Low 64-80 [facility] Comment on above: Order Comment: Speci men Type: FLUID SPECIMENOrdering Facility: Address: [address] [place] [address] Performed By: #### C CBF, [id number], [id number] ####[facility] LABCLIA [id number] [place] [address] [place] NEUT%, BF 14 % High 0-1 [facility] Comment on above: Order Comment: Speci men Type: FLUID SPECIMENOrdering Facility: Address: [address] [place] [address] Performed By: #### C CBF, [id number], [id number] ####[facility] LABCLIA [id number] [place] [address] [place] REAC LYMPH %, BF Normal [facility] Comment on above: Order Comment: Speci men Type: FLUID SPECIMENOrdering Facility: Address: [address] [place] [address] Result Comment: Zaire ected result: Previously reported as 5 % on 05/19/2024 at 6:29 AM EST. Performed By: #### C CBF, [id number], [id number] ####[facility] LABCLIA [id number] [place] [address] [place] Microorganism Spec Culton Microorganism identified Cx Nom (Unsp spec) CULTURE, AFB: No Acid Fast Bacilli isolated after 42 days AFB STAIN: No acid fast bacilli seen by fluorochrome stain Normal [facility] Comment on above: Performed By: #### 6 11-4, 80993-6 ####[facility] LABCLIA [id number] [place] [address] [place] PH PLEURAL FLUID (FOR USE OU IDE [facility])on 05-18-2024 pH (Body fld) 7.9 [pH] Normal [facility] Comment on above: Order Comment: Speci men Type: FLUID SPECIMENOrdering Facility: Address: [address] [place] [address] Result Comment: No r eference range has been established for this specimen type.This test was developed, and its performance characteristics determined by the [facility] Department of Pathology and Laboratory Medicine. It has not been cleared or approved by the FDA. The [facility] Department of Pathology and Laboratory Medicine is regulated under CLIA as qualified to perform high-complexity testing. This test is used for clinical purposes. It should not be regarded as investigational or for research. Performed By: #### L [id number] ####[facility] [id number] [place] [id number] [place] Prot Fld-mCncon 05-18-2024 Protein (Body fld) [Mass/Vol] 2.2 g/dL Normal See Comment [facility] Comment on above: Order Comment: Speci men Type: FLUID SPECIMENOrdering Facility: Address: [address] [place] [address] Result Comment: Sero us fluids: Effusions are the accumulation of clinically detected fluid in any of the serous cavities. Effusions are further into transudates and exudates, which aid in determining the etiology of the effusion.Transudate: Body fluid total protein measurement < 3.0 g/dL. A ratio of serous fluid total protein to a concurrent serum total protein < 0.5 indicates a transudate.Exudate: Body fluid total protein measurement >= 3.0 g/dL. A ratio of serous fluid total protein to a concurrent serum total protein >= 0.5 indicates an exudate.Reference: 1. CLSI. Analysis of Body Fluids in Clinical Chemistry Approved Guideline. CLSI document C49A. Hao PA: Clinical Laboratory Standards [place]: 2007. Performed By: #### 2 344-0, 2529-6, 2881-1, 73269-8, 1747-5, 21881-7 ####[facility] [id number] [place] [id number] [place] Trigl Fld-mCncon 05-18-2024 Triglyceride (Body fld) [Mass/Vol] 13 mg/dL Normal [facility] Comment on above: Order Comment: Speci men Type: FLUID SPECIMENOrdering Facility: Address: [address] [place] [address] Result Comment: Syno vial fluids: Synovial fluid triglycerides measurement may be useful in classifying various joint disorders. ???The reference range for adult synovial fluid triglycerides measurement is <=40% of the concurrent plasma cholesterol measurement.Serous fluids: Serous fluid triglycerides measurement may be useful in classifying the effusion as chylous or nonchylous. ???A serous fluid triglycerides measurement >110 mg/dL is suggestive of a chylous effusion. ???A serous fluid triglycerides measurement <=110 mg/dL is suggestive of a nonchylous effusion.Reference: 1. CLSI. Analysis of Body Fluids in Clinical Chemistry;Approved Guideline. CLSI document C49A. RAJEEV Bui: Clinical Laboratory Standards [place]; 2007. Performed By: #### 2 344-0, 2529-6, 2881-1, 58241-4, 1747-5, 19095-0 ####[facility] [id number] [address] [place] [facility] XR CHEST 2V FRONTAL/LATon XR CHEST 2V FRONTAL/LAT Normal [facility] XR Chest PA and Lateralon IMPRESSION: Slight decrease in the right pleural effusion.. Capsule Filler: PSCB Transcribe Date/Time: May 18 2024 1:40P Dictated by : REBECCA LOVELACE MD This examination was interpreted and the report reviewed and electronically signed by: REBECCA LOVELACE MD on May 18 2024 1:46PM [facility] DIVISION OF RADIOLOGY * * *Final Report* * * DATE OF EXAM: May 18 2024 10:55AM MTX 5291 - XR CHEST 2V FRONTAL/LAT / PROCEDURE REASON: Pleural effusion * * * * Physician Interpretation * * * * EXAMINATION: CHEST RADIOGRAPH (2 VIEW FRONTAL & LATERAL) CLINICAL HISTORY: Pleural effusion MQ: XC2_6 EXAM DATE/TIME: 05/18/2024 10:55 AM COMPARISON: 03/17/2024 RESULT: Lines, tubes, and devices: None. Lungs and pleura: The right chest tube is noted with its tip directed near the right lung base. Patchy linear densities are noted near the right lung base which may represent areas of atelectasis. The right pleural effusion appears minimally smaller in comparison to prior study. The left lung appears clear. No pneumothorax is identified. Cardiomediastinal silhouette: Stable cardiomediastinal silhouette. Bones and soft tissues: Degenerative changes are noted in the thoracic spine. DIVISION OF RADIOLOGY Provider, Migel Valle [facility] - 05/18/2024 * * *Final Report* * * DATE OF EXAM: May 18 2024 10:55AM MTX 5291 - XR CHEST 2V FRONTAL/LAT / PROCEDURE REASON: Pleural effusion * * * * Physician Interpretation * * * * EXAMINATION: CHEST RADIOGRAPH (2 VIEW FRONTAL & LATERAL) CLINICAL HISTORY: Pleural effusion MQ: XC2_6 EXAM DATE/TIME: 05/18/2024 10:55 AM COMPARISON: 03/17/2024 RESULT: Lines, tubes, and devices: None. Lungs and pleura: The right chest tube is noted with its tip directed near the right lung base. Patchy linear densities are noted near the right lung base which may represent areas of atelectasis. The right pleural effusion appears minimally smaller in comparison to prior study. The left lung appears clear. No pneumothorax is identified. Cardiomediastinal silhouette: Stable cardiomediastinal silhouette. Bones and soft tissues: Degenerative changes are noted in the thoracic spine. IMPRESSION IMPRESSION: Slight decrease in the right pleural effusion.. Capsule Filler: PSCB Transcribe Date/Time: May 18 2024 1:40P Dictated by : REBECCA LOVELACE MD This examination was interpreted and the report reviewed and electronically signed by: REBECCA LOVELACE MD on May 18 2024 1:46PM EST [facility] Radiology Study observation (narrative) [facility] XR Chest PA and LateralOrder ed By: Cc Provider on 05-18-2024 [facility] ANES POSTPROC EVALon 024 ANES POSTPROC EVAL HNO ID: [id number] Author: STEVEN DONNELLY MD Service: Anesthesiology Author Type: Anesthesiologist Type: Anesthesia Postprocedure Evaluation Filed: 04/28/2024 16:14 Note Text: POST ANESTHESIA EVALUATION NOTE : 1950 Procedure Summary Date: 04/28/24 Room / Location: [facility] Endoscopy - ENDO Anesthesia Start: 1129 Anesthesia Stop: 1210 Procedures: EGD DIAGNOSTIC COLONOSCOPY DIAGNOSTIC Diagnosis: Diarrhea, unspecified type Scheduled Providers: Vic Ponce MD; Steven Donnelly I, MD; Julian Batista APRN.ARTILLERY SPECIALIST Responsible Provider: Steven Donnelly I, MD Anesthesia Type: MAC ASA Status: 4 Anesthesia Type: MAC Last Vitals Vitals Value Taken Time BP 117/82 04/28/24 1230 Temp 37.3 ?C (99.1 ?F) 04/28/24 1202 HR SpO2 88 04/28/24 1238 Resp 19 04/28/24 1239 SpO2 95 % 04/28/24 1238 Vitals shown include unfiled device data. Post Anesthesia Patient Status Patient Evaluation: PACU. PACU/ICU Patient Condition: stable. Anticipated Disposition: phase 2 then home. Neurological Status: aware and responsive. Pulmonary Status: breathing comfortably on room air Airway Control: returned to baseline unsupported. Cardiovascular Status: stable. Pain Management: clinically adequate Postoperative Hydration: acceptable. Intraoperative Events: no significant anesthesia events Post Operative Nausea/Vomiting Status: no significant post operative nausea or vomiting Recommendation: continue current plan of care. Anesthesia Observations No Documentation SIGNATURE: Steven Donnelly MD PATIENT NAME: Sav Raymundo DATE: April 28, 2024 TIME: 4:14 PM CSN: [id number] Normal [facility] ANES PRE-OPon 04-28-2024 ANES PRE-OP HNO ID: [id number] Author: STEVEN DONNELLY MD Service: Anesthesiology Author Type: Anesthesiologist Type: Anesthesia Preprocedure Evaluation Filed: 04/28/2024 11:18 Note Text: ANESTHESIOLOGY DAY OF SURGERY NOTE : 1950 Procedure Information Date/Time: 04/28/24 1230 Scheduled providers: Vic Ponce MD; Steven Donnelly I, MD; Julian Batista APRN.ARTILLERY SPECIALIST Procedures: EGD DIAGNOSTIC COLONOSCOPY DIAGNOSTIC Location: [facility] Endoscopy - ENDO Estimated body mass index is 27.12 kg/m? as calculated from the following: Height as of an earlier encounter on 04/28/24: 182.9 cm (6'). Weight as of an earlier encounter on 04/28/24: 90.7 kg (200 lb). Most recent hematocrit and potassium results: Hematocrit 38.0 04/20/2024 Potassium 3.9 04/20/2024 Relevant Problems CARDIO (+) Primary hypertension NEURO-PSYCH (+) History of pericarditis I - PHYSICAL EVALUATION AIRWAY Patient intubated: No. Tracheostomy tube not present Mallampati: III. TM distance: >3 FB. Neck ROM: full ROM without neurological symptoms. Mouth opening: adequate. Short neck: no. Thick neck: yes [place] present: no DENTAL Dental findings: teeth intact. II - ANESTHESIA PLAN ASA Score: 4 Anesthetic Plan: MAC NPO Status: adequate Beta Masha Monitoring Plan Monitoring plan: standard ASA. Post Procedure Analgesic Plan Informed Consent Anesthetic risks, benefits, alternatives, personnel and consent discussed: yes. Patient / Responsible Republican agrees to proceed: yes Patient / Surrogate agrees to blood products: blood products not planned DNR status not reviewed with patient and/or family prior to surgery. Significant changes in the patient condition since the History and Physical, not otherwise documented in primary service progress note: no. No vitals data found for the desired time range. Outpatient Medications as of 04/28/2024 Medication Sig - OFVDEGN-[id number]-ITUG ORAL Take by mouth. - iv contrast (will be provided with radiology test) CT Chest W -Inject, intravenously, once for 1 dose.No IV access, insert saline lock prior to the beginning of sedation, infusion, injection of imaging exam. Discontinue saline lock post exam. If Pt. has a central line or IVAD, may access for administration according to line specific nursing protocol. Once exam is complete flush line and de-access according to line specific nursing protocol in the CT contrast administration guidelines link. (Patient not taking: Reported on 04/28/2024) - diclofenac (VOLTAREN) 1 % topical gel - amoxicillin (AMOXIL) 500 mg capsule - furosemide (LASIX) 80 mg tablet Take 1 tablet by mouth once daily. - furosemide (LASIX) 40 mg tablet Take 1 tablet by mouth once daily. At 2 pm - hydrOXYchloroQUINE (PLAQUENIL) 200 mg tablet Take 1 tablet by mouth two times a day. - magnesium oxide (MAG-OX) 400 mg (241.3 mg magnesium) tablet Take 1 tablet by mouth two times a day. (Patient not taking: Reported on 03/17/2024) - predniSONE (DELTASONE) 10 mg tablet Take 1 tablet by mouth as directed. Prednisone 10 mg 2 tabs tid x 5 days,2 tabs bid x 5 days,3 tabs daily x 5 days,2 tabs daily x 5 days,1 tab daily x 5 days,1/2 daily x 4 days and stip - calcium carbonate (OS-ELIZABETH 500) 500 mg calcium (1,250 mg) tablet Take 1 tablet by mouth two times a day. (Patient not taking: Reported on 03/17/2024) - acetaminophen (TYLENOL) 500 mg tablet Take 2 tablets by mouth every 6 hours. - ipratropium-albuterol (DUONEB) 0.5 mg-3 mg(2.5 mg base)/3 mL nebu Inhale 3 mL as instructed every 6 hours as needed for wheezing/shortness of breath. (Patient not taking: Reported on 03/17/2024) - allopurinol (ZYLOPRIM) 300 mg tablet Take 300 mg by mouth once daily. - atorvastatin (LIPITOR) 10 mg tablet Take 1 tablet by mouth once daily. - omeprazole (PRILOSEC) 20 mg capsule Take 20 mg by mouth once daily. Facility-Administered Medications as of 04/28/2024 Medication Dose Route Frequency - lidocaine (PF) 10 mg/mL (1 %) 1-2 mg injection (XYLOCAINE) 0.1-0.2 mL INTRADERMAL PRN - NaCl 0.9% iv infusion 30 mL/hr INTRAVENOUS CONTINUOUS I have interviewed and examined the patient. I have reviewed the medical record and/or the pre-anesthesia evaluation, pertinent labs, and test results. This contains updated information obtained within 48 hours of Surgery/Procedure. SIGNATURE: Steven Donnelly MD PATIENT NAME: Sav Raymundo DATE: April 28, 2024 TIME: 11:17 AM CSN: [id number] Normal [facility] ANES PRE-OP Normal [facility] Colonoscopyon 04-28-2024 Colonoscopy [facility] Gastrointestinal Endoscopy Patient Name: Sav Raymundo Procedure Date: 04/28/2024 11:16 AM Date of : 1950 Admit Type: Outpatient Age: 74 Room: [place] [address] Gender: Male Note Status: Finalized Attending MD: Vic Ponce MD, [id number] Procedure: Colonoscopy Indications: Chronic diarrhea Comorbidities Patient with chronic right pleural effusion unknown etiology/origin with N,V, diarrhea and weight loss. Providers: Vic Ponce MD, Nenita Almonte, RN, Abbie Ivey, RN, Adri Bradley, RN (Assisting Nurse) Patient Profile: This is a 74 year old male. Refer to note in patient chart for documentation of history and physical. Last Colonoscopy: 5 years ago. Referring Physician: Sue Murillo MD (Referring MD) Medicines: Monitored Anesthesia Care Complications: No immediate complications. Procedure: Pre-Anesthesia Assessment: - Prior to the procedure, a History and Physical was performed, and patient medications and allergies were reviewed. The patient is competent. The risks and benefits of the procedure and the sedation options and risks were discussed with the patient. All questions were answered and informed consent was obtained. Patient identification and proposed procedure were verified by the physician, the nurse, the anesthesiologist and the superintendent commissary in the procedure room at 11:29 AM. Mental Status Examination: alert and oriented. Airway Examination: normal oropharyngeal airway and neck mobility. Respiratory Examination: clear to auscultation. CV Examination: normal. Prophylactic Antibiotics: The patient does not require prophylactic antibiotics. Prior Anticoagulants: The patient has taken no anticoagulant or antiplatelet agents. ASA Grade Assessment: III - A patient with severe systemic disease. After reviewing the risks and benefits, the patient was deemed in satisfactory condition to undergo the procedure. The anesthesia plan was to use monitored anesthesia care (MAC). Immediately prior to administration of medications, the patient was re-assessed for adequacy to receive sedatives. The heart rate, respiratory rate, oxygen saturations, blood pressure, adequacy of pulmonary ventilation, and response to care were monitored throughout the procedure. The physical status of the patient was re-assessed after the procedure. After I obtained informed consent, the scope was passed under direct vision. Throughout the procedure, the patient's blood pressure, pulse, and oxygen saturations were monitored continuously. The Colonoscope was introduced through the anus and advanced to the terminal ileum, with identification of the appendiceal orifice and IC valve. The colonoscopy was performed without difficulty. The patient tolerated the procedure well. The quality of the bowel preparation was good. The terminal ileum, ileocecal valve, appendiceal orifice, and rectum were photographed. Scope Withdrawal Time: 0 hours 4 minutes 36 seconds Moderate Sedation: MAC anesthesia was administered by the anesthesia team. Total Procedure Duration: 0 hours 6 minutes 58 seconds Findings: The perianal and digital rectal examinations were normal. Pertinent negatives include normal sphincter tone. The colon (entire examined portion) appeared normal. Biopsies for histology were taken with a cold forceps from the entire colon for evaluation of microscopic colitis. There is no endoscopic evidence of bleeding, diverticula, erythema, inflammation, mass, polyps, stenosis, stricture or ulcerations in the entire colon. The terminal ileum appeared normal. Biopsies were taken with a cold forceps for histology. Impression: - The entire examined colon is normal. Biopsied. - The examined portion of the ileum was normal. Biopsied. Recommendation: - Patient has a contact number available for emergencies. The signs and symptoms of potential delayed complications were discussed with the patient. Return to normal activities tomorrow. Written discharge instructions were provided to the patient. - Resume previous diet. - Continue present medications. - Await pathology results. - Repeat colonoscopy in 5 years for surveillance. - Return to primary care physician PRN. - Discharge patient to home (ambulatory). - Resume anticoagulant at prior dose. Procedure Code(s): --- Professional --- 56083, Colonoscopy, flexible; with biopsy, single or multiple Diagnosis Code(s): --- Professional --- K52.9, Noninfective gastroenteritis and colitis, unspecified CPT copyright 2020 [employer]. All rights reserved. The codes documented in this report are preliminary and upon geek squad agent review may be revised to meet current compliance requirements. Attending Participation: I personally performed the entire procedure. Scope In: 11:48:20 AM Scope Out: 11:55:18 AM (more content not included)... Normal [facility] Colonoscopy studyon 04-28-20 [facility] Gastrointestinal Endoscopy Patient Name: Sav Raymundo Procedure Date: 04/28/2024 11:16 AM Date of : 1950 Admit Type: Outpatient Age: 74 Room: [place] [address] Gender: Male Note Status: Finalized Attending MD: Vic Ponce MD, [id number] Procedure: Colonoscopy Indications: Chronic diarrhea Comorbidities Patient with chronic right pleural effusion unknown etiology/origin with N,V, diarrhea and weight loss. Providers: Vic Ponce MD, Nenita Almonte, EVAN, Abbie Ivey, EVAN, Adri Bradley RN (Assisting Nurse) Patient Profile: This is a 74 year old male. Refer to note in patient chart for documentation of history and physical. Last Colonoscopy: 5 years ago. Referring Physician: Sue Murillo MD (Referring MD) Medicines: Monitored Anesthesia Care Complications: No immediate complications. Procedure: Pre-Anesthesia Assessment: - Prior to the procedure, a History and Physical was performed, and patient medications and allergies were reviewed. The patient is competent. The risks and benefits of the procedure and the sedation options and risks were discussed with the patient. All questions were answered and informed consent was obtained. Patient identification and proposed procedure were verified by the physician, the nurse, the anesthesiologist and the superintendent commissary in the procedure room at 11:29 AM. Mental Status Examination: alert and oriented. Airway Examination: normal oropharyngeal airway and neck mobility. Respiratory Examination: clear to auscultation. CV Examination: normal. Prophylactic Antibiotics: The patient does not require prophylactic antibiotics. Prior Anticoagulants: The patient has taken no anticoagulant or antiplatelet agents. ASA Grade Assessment: III - A patient with severe systemic disease. After reviewing the risks and benefits, the patient was deemed in satisfactory condition to undergo the procedure. The anesthesia plan was to use monitored anesthesia care (MAC). Immediately prior to administration of medications, the patient was re-assessed for adequacy to receive sedatives. The heart rate, respiratory rate, oxygen saturations, blood pressure, adequacy of pulmonary ventilation, and response to care were monitored throughout the procedure. The physical status of the patient was re-assessed after the procedure. After I obtained informed consent, the scope was passed under direct vision. Throughout the procedure, the patient's blood pressure, pulse, and oxygen saturations were monitored continuously. The Colonoscope was introduced through the anus and advanced to the terminal ileum, with identification of the appendiceal orifice and IC valve. The colonoscopy was performed without difficulty. The patient tolerated the procedure well. The quality of the bowel preparation was good. The terminal ileum, ileocecal valve, appendiceal orifice, and rectum were photographed. Scope Withdrawal Time: 0 hours 4 minutes 36 seconds Moderate Sedation: MAC anesthesia was administered by the anesthesia team. Total Procedure Duration: 0 hours 6 minutes 58 seconds Findings: The perianal and digital rectal examinations were normal. Pertinent negatives include normal sphincter tone. The colon (entire examined portion) appeared normal. Biopsies for histology were taken with a cold forceps from the entire colon for evaluation of microscopic colitis. There is no endoscopic evidence of bleeding, diverticula, erythema, inflammation, mass, polyps, s (more content not included)... PROVATION [facility] Radiology Study observation (narrative) [facility] EGD Study observation [place] de la cruz 04-28-2024 [facility] Gastrointestinal Endoscopy Patient Name: Sav Raymundo Procedure Date: 04/28/2024 11:17 AM Date of : 1950 Admit Type: Outpatient Age: 74 Room: [place] [address] Gender: Male Note Status: Finalized Attending MD: Vic Ponce MD, [id number] Procedure: Upper GI endoscopy Indications: Dysphagia, Heartburn, Nausea with vomiting Providers: Vic Ponce MD, Nenita Almonte, RN, Abbie Ivey, EVAN, Adri Bradley, EVAN (Assisting Nurse) Patient Profile: This is a 74 year old male. Refer to note in patient chart for documentation of history and physical. Patient has symptoms of acute nausea, acute vomiting and chronic vomiting. Referring Physician: Sue Murillo MD (Referring MD) Medicines: Monitored Anesthesia Care Complications: No immediate complications. Procedure: Pre-Anesthesia Assessment: - Prior to the procedure, a History and Physical was performed, and patient medications and allergies were reviewed. The patient is competent. The risks and benefits of the procedure and the sedation options and risks were discussed with the patient. All questions were answered and informed consent was obtained. Patient identification and proposed procedure were verified by the physician, the nurse, the anesthesiologist and the superintendent commissary in the procedure room at 11:29 AM. Mental Status Examination: alert and oriented. Airway Examination: normal oropharyngeal airway and neck mobility. Respiratory Examination: clear to auscultation. CV Examination: normal. Prophylactic Antibiotics: The patient does not require prophylactic antibiotics. Prior Anticoagulants: The patient has taken no anticoagulant or antiplatelet agents. ASA Grade Assessment: III - A patient with severe systemic disease. After reviewing the risks and benefits, the patient was deemed in satisfactory condition to undergo the procedure. The anesthesia plan was to use monitored anesthesia care (MAC). Immediately prior to administration of medications, the patient was re-assessed for adequacy to receive sedatives. The heart rate, respiratory rate, oxygen saturations, blood pressure, adequacy of pulmonary ventilation, and response to care were monitored throughout the procedure. The physical status of the patient was re-assessed after the procedure. After obtaining informed consent, the endoscope was passed under direct vision. Throughout the procedure, the patient's blood pressure, pulse, and oxygen saturations were monitored continuously. The Endoscope was introduced through the mouth, and advanced to the third part of duodenum. The upper GI endoscopy was accomplished without difficulty. The patient tolerated the procedure well. Moderate Sedation: MAC anesthesia was administered by the anesthesia team. Total Procedure Duration: 0 hours 5 minutes 50 seconds Findings: LA Grade A (one or more mucosal breaks less than 5 mm, not extending between tops of 2 mucosal folds) esophagitis with no bleeding was found 35 to 36 cm from the incisors. Biopsies were taken with a cold forceps for histology. One benign-appearing, intrinsic mild stenosis was found 35 to 36 cm from the incisors. This stenosis measured 1.7 cm (inner diameter) x less than one cm (in length). The stenosis was traversed. The scope was withdrawn. Dilation was performed with a Keller dilator with mild resistance at 60 Fr. A medium-sized hiatal hernia was present. A medium-sized hiatal hernia was found. The proximal extent of the gastric folds (end of tubular esophagus) was 35 cm from the incisors. T (more content not included)... PROVATION [facility] Radiology Study observation (narrative) [facility] HISTORY PHYSICALon HISTORY PHYSICAL HNO ID: [id number] Author: VIC PONCE MD Service: Gastroenterology Author Type: Physician Type: H&P Filed: 04/28/2024 10:55 Note Text: HISTORY AND PHYSICAL Sav Raymundo, 74 year old male Current history and physical on file: Yes Is a new History and Physical required for today's visit? Yes Indication for procedure: GERD and Screening PROCEDURE(S) SCHEDULED FOR: Colonoscopy with or without biopsies and with or without removal of polyps or lesions, dilation (any means), treatment of bleeding (any means), based on clinical findings. and EGD (Esophagogastroduodenoscop y) with or without biopsies, removal of polyps or lesions, dilation ( any means), treatment of bleeding ( any means), Barrx treatment of Chris's Esophagus, image tube placement or cryo therapy treatment based on clinical findings. BASELINE BEHAVIOR: Calm BASELINE ORIENTATION: A AND O x3 All medications and allergies reviewed: Yes Skin Assessment: Warm dry mucus membranes pink Airway/Respiratory Assessment: Airway: visualization of the uvula- Yes Mouth: opening greater than 2 fingerbreadths- Yes Neck: full range of motion- Yes Breath sounds clear/equal- Yes Cardiac Assessment: Regular rate and rhythm without murmur Abdominal Assessment: Abdomen soft, non-tender, no masses or organomegaly. Sedation Plan: MAC Additional Comments: None Vic Ponce MD [facility] NURSING PROGon 04-28-2024 NURSING PROG HNO ID: [id number] Author: JAHAIRA PERDOMO RN Service: Nursing Author Type: Registered Nurse Type: Nursing Progress Note Filed: 04/28/2024 12:29 Note Text: PATIENT EDUCATION TOPIC: PROCEDURE / SURGERY: Post Procedure Teaching: Med Administration and Symptom Management PATIENT NAME: Sav Raymundo PATIENT LOCATION: Room/bed info not found READINESS TO LEARN COGNITIVE ABILITY: Alert and oriented MOTIVATION TO LEARN: Interested FAMILY SUPPORT: High - Very involved in pt care INSTRUCTION PROVIDED TO: Patient and Spouse PATIENT LEARNS BEST BY: Individual Instruction FACTORS AFFECTING LEARNING: None PHYSICAL LIMITATIONS AFFECTING LEARNING: None LEARNING RESPONSE DIAGNOSIS: ADULT: esophageal stricture and 60F dilation, hiatal hernia, gastritis, gastric polyp PATIENT/FAMILY RESPONSE: Verbalizes understanding of: POST-PROCEDURE INSTRUCTIONS-Correct actions to take to reduce post procedure complications METHOD OF INSTRUCTION: Individual instruction Written instruction/Handouts Verbal instruction FOLLOW-UP PLAN: Complete - No need for follow-up INSTRUCTIONAL AIDS USED: NA SUPPLEMENTAL MATERIAL PROVIDED TO PATIENT: None REFERRAL (RECOMMENDATION): None Electronically Signed By: Jahaira Perdomo [facility] NURSING PROG HNO ID: [id number] Author: MAUREEN LAUGHLIN RN Service: ? Author Type: Registered Nurse Type: Nursing Progress Note Filed: 04/28/2024 11:16 Note Text: PATIENT EDUCATION TOPIC: PROCEDURE / SURGERY: Pre Procedure Teaching: Complication Prevention PATIENT NAME: Sav Raymundo PATIENT LOCATION: Room/bed info not found READINESS TO LEARN COGNITIVE ABILITY: Alert and oriented MOTIVATION TO LEARN: Eager FAMILY SUPPORT: None - Unavailable/disinterested INSTRUCTION PROVIDED TO: Patient PATIENT LEARNS BEST BY: Individual Instruction FACTORS AFFECTING LEARNING: None PHYSICAL LIMITATIONS AFFECTING LEARNING: None LEARNING RESPONSE DIAGNOSIS: ADULT: PATIENT/FAMILY RESPONSE: Verbalizes understanding of: PRE-PROCEDURE INSTRUCTIONS-Correct action to take to follow pre-procedure instructions METHOD OF INSTRUCTION: Individual instruction FOLLOW-UP PLAN: Complete - No need for follow-up INSTRUCTIONAL AIDS USED: NA SUPPLEMENTAL MATERIAL PROVIDED TO PATIENT: None REFERRAL (RECOMMENDATION): None Electronically Signed By: Maureen Yanira Yair Normal [facility] NURSING PROG Normal [facility] SURGICAL PATHOLOGYon CASE REPORT Normal [facility] Comment on above: Order Comment: Alexandru campos Type: TISSUE SPECIMEN Ordering Facility: Address: [address] [place] [address] Result Comment: Surg ical Pathology Report Case: [id number] Authorizing Provider: Vic Ponce MD Collected: 04/28/2024 11:37 AM Ordering Location: [facility] Received: 04/28/2024 01:31 PM Endoscopy - ENDO Pathologist: Simba Frias MD, PhD Specimens: A) - Small Bowel, Duodenum, Biopsy B) - Stomach, Biopsy C) - Stomach, Polyp, Biopsy D) - Esophagus, Biopsy E) - Small Bowel, Ileum, Biopsy F) - Colon, Biopsy, random colon Performed By: #### S #### [facility] CLIA [id number] [address] [place] [address] OF [place] DIAGNOSIS COMMENT Comment F: This toy katy of colitis is non-specific and can be associated with a number of etiologies. Although most cases remain idiopathic, the differential includes medication-related enteropathy (caused by such agents as NSAIDs, PPIs, histamine receptor antagonists, SSRIs or angiotensin receptor blockers, cephalosporins, carbamazepine, gold salts, ipilimumab etc.), resolving infections [both bacterial (such as C. Jejuni, E. Coli) and viral], and as a colonic manifestation of gluten-sensitive enteropathy among others. Correlation with the clinical, laboratory and colonoscopic findings should be of value in this differential. Normal [facility] Comment on above: Order Comment: Alexandru campos Type: TISSUE SPECIMEN Ordering Facility: Address: [address] [place] [address] Performed By: #### S #### [facility] CLIA [id number] [address] [place] [address] STATES [place] FINAL DIAGNOSIS Normal [facility] Comment on above: Order Comment: Speci men Type: TISSUE SPECIMEN Ordering Facility: Address: [address] [place] [address] Result Comment: A. D uodenum, biopsy: -Duodenal mucosa with preserved villous architecture. -No increase in intraepithelial lymphocytes. B. Stomach, biopsy: -Oxyntic mucosa with mild PPI effect. -Minimal chronic inactive gastritis and reactive change in antral mucosa. -Negative for intestinal metaplasia or dysplasia -No H. pylori on routine stain. C. Gastric polyp, biopsy: -Early/evolving fundic gland polyp. D. Esophagus, biopsy: -Squamous epithelium with no diagnostic abnormality. No intraepithelial eosinophils. -Separate fragment of gastric cardia-type mucosa with reactive change. -Negative for intestinal metaplasia or dysplasia. E. Small bowel, ileum, biopsy: -Ileal mucosa with no diagnostic abnormality. F. Random colon, biopsy: -Lymphocytic colitis, see comment. Performed By: #### S #### [facility] CLIA [id number] [address] [place] [address] OF [facility] FINAL PERFORMING LAB Normal [facility] Comment on above: Order Comment: Speci men Type: TISSUE SPECIMEN Ordering Facility: Address: [address] [place] [address] Result Comment: Diag nostic interpretation performed at [facility], [address] [place] [address] CLIA# [id number] Director Of Marketing Operations: Ramos Strickland M.D. Performed By: #### S #### [facility] CLIA [id number] [address] [place] [address] OF [place] GROSS DESCRIPTION Normal [facility] Comment on above: Order Comment: Speci men Type: TISSUE SPECIMEN Ordering Facility: Address: [address] [place] [address] Result Comment: A. S mall Bowel, Duodenum, Biopsy Received in formalin are multiple pieces of de la garza, soft tissue aggregating to 1.0 x 0.2 x 0.1 cm. Totally submitted in one cassette. B. Stomach, Biopsy Received in formalin are multiple pieces of de la garza, soft tissue aggregating to 1.8 x 0.2 x 0.1 cm. Totally submitted in one cassette. C. Stomach, Polyp, Biopsy Received in formalin is one piece of de la garza, soft tissue measuring 0.5 x 0.2 x 0.1 cm. Totally submitted in one cassette. D. Esophagus, Biopsy Received in formalin are two pieces of de la garza-white, soft tissue aggregating to 0.8 x 0.2 x 0.1 cm. Totally submitted in one cassette. E. Small Bowel, Ileum, Biopsy Received in formalin is one piece of de la garza, soft tissue measuring 0.5 x 0.2 x 0.1 cm. Totally submitted in one cassette. F. Colon, Biopsy Received in formalin are multiple pieces of de la garza, soft tissue aggregating to 1.3 x 0.4 x 0.1 cm. Totally submitted in two cassettes. DB April 28, 2024 5:43 PM Gross examination performed at [facility], [address] [place] [address] Performed By: #### S #### [facility] CLIA [id number] [address] [place] [address] [place] [address] [place] [facility] Upper GI endoscopy 11-12-2 024 Upper GI endoscopy [facility] Gastrointestinal Endoscopy Patient Name: Sav Raymundo Procedure Date: 04/28/2024 11:17 AM Date of : 1950 Admit Type: Outpatient Age: 74 Room: [place] [address] Gender: Male Note Status: Finalized Attending MD: Vic Ponce MD, [id number] Procedure: Upper GI endoscopy Indications: Dysphagia, Heartburn, Nausea with vomiting Providers: Vic Ponce MD, Nenita Almonte, EVAN, Abbie Ivey, EVAN, Adri Bradley RN (Assisting Nurse) Patient Profile: This is a 74 year old male. Refer to note in patient chart for documentation of history and physical. Patient has symptoms of acute nausea, acute vomiting and chronic vomiting. Referring Physician: Sue Murillo MD (Referring MD) Medicines: Monitored Anesthesia Care Complications: No immediate complications. Procedure: Pre-Anesthesia Assessment: - Prior to the procedure, a History and Physical was performed, and patient medications and allergies were reviewed. The patient is competent. The risks and benefits of the procedure and the sedation options and risks were discussed with the patient. All questions were answered and informed consent was obtained. Patient identification and proposed procedure were verified by the physician, the nurse, the anesthesiologist and the superintendent commissary in the procedure room at 11:29 AM. Mental Status Examination: alert and oriented. Airway Examination: normal oropharyngeal airway and neck mobility. Respiratory Examination: clear to auscultation. CV Examination: normal. Prophylactic Antibiotics: The patient does not require prophylactic antibiotics. Prior Anticoagulants: The patient has taken no anticoagulant or antiplatelet agents. ASA Grade Assessment: III - A patient with severe systemic disease. After reviewing the risks and benefits, the patient was deemed in satisfactory condition to undergo the procedure. The anesthesia plan was to use monitored anesthesia care (MAC). Immediately prior to administration of medications, the patient was re-assessed for adequacy to receive sedatives. The heart rate, respiratory rate, oxygen saturations, blood pressure, adequacy of pulmonary ventilation, and response to care were monitored throughout the procedure. The physical status of the patient was re-assessed after the procedure. After obtaining informed consent, the endoscope was passed under direct vision. Throughout the procedure, the patient's blood pressure, pulse, and oxygen saturations were monitored continuously. The Endoscope was introduced through the mouth, and advanced to the third part of duodenum. The upper GI endoscopy was accomplished without difficulty. The patient tolerated the procedure well. Moderate Sedation: MAC anesthesia was administered by the anesthesia team. Total Procedure Duration: 0 hours 5 minutes 50 seconds Findings: LA Grade A (one or more mucosal breaks less than 5 mm, not extending between tops of 2 mucosal folds) esophagitis with no bleeding was found 35 to 36 cm from the incisors. Biopsies were taken with a cold forceps for histology. One benign-appearing, intrinsic mild stenosis was found 35 to 36 cm from the incisors. This stenosis measured 1.7 cm (inner diameter) x less than one cm (in length). The stenosis was traversed. The scope was withdrawn. Dilation was performed with a Keller dilator with mild resistance at 60 Fr. A medium-sized hiatal hernia was present. A medium-sized hiatal hernia was found. The proximal extent of the gastric folds (end of tubular esophagus) was 35 cm from the incisors. The hiatal narrowing was 40 cm from the incisors. The Z-line was a variable distance from incisors; the hiatal hernia was sliding. A single 5 mm sessile polyp with no bleeding and no stigmata of recent bleeding was found in the cardia. Biopsies were taken with a cold forceps for histology. Diffuse moderate inflammation characterized by congestion (edema), erythema, friability, granularity, linear erosions and mucus was found in the gastric body and in the gastric antrum. Biopsies were taken with a cold forceps for histology. The exam of the stomach was otherwise normal. The examined duodenum was normal. Biopsies were taken with a cold forceps for histology. Impression: - LA Grade A reflux esophagitis with no bleeding. Biopsied. - Benign-appearing esophageal stenosis. Dilated. - Medium-sized hiatal hernia. - Medium-sized hiatal hernia. - A single gastric polyp. Biopsied. - Chronic gastritis. Biopsied. - Normal examined duodenum. Biopsied. Recommendation: - Await pathology results. - Resume previous diet. - Continue present medications. - Use Protonix (pantoprazole) 40 mg PO daily for 3 months. - Use sucralfate tablets 1 gram PO BID for 1 month. - Perform a colonoscopy today. - Discharge patient to home (ambulatory). Procedure Co (more content not included)... Normal [facility] No Panel Informationon 04-23 [facility] CT ENTEROGRAPHY W IVCONon CT ENTEROGRAPHY W IVCON Normal [facility] CT Small bowel W contrast PO and W contrast Scarlett 04-22-2024 IMPRESSION: No active bowel inflammation. Small volume ascites and small right pleural effusion, both increased since 12/20/2023. [facility] Transcribe Date/Time: Apr 22 2024 12:06P Dictated by : MILDRED GRANDA MD This examination was interpreted and the report reviewed and electronically signed by: MILDRED GRANDA MD on Apr 22 2024 12:24PM [facility] DIVISION OF RADIOLOGY * * *Final Report* * * DATE OF EXAM: Apr 22 2024 11:45AM [facility] [place] ENTEROGRAPHY W IVCON / PROCEDURE REASON: multiple diagnoses * * * * Physician Interpretation * * * * EXAMINATION: CT ABDOMEN AND PELVIS WITH INTRAVENOUS CONTRAST AND NEUTRAL ORAL CONTRAST(CT ENTEROGRAPHY) HISTORY: 74-year-old man with a history of chronic diarrhea TECHNIQUE: CT of the abdomen and pelvis using single phase Enterography technique CONTRAST: IV: 100 ml of Omnipaque 350 Oral: [address] Radiation dose: Integrated dose-length product (DLP) for this visit = 705 mGy*cm. CT Dose Reduction Employed: Automated exposure control (AEC) COMPARISON: CT 12/20/2023 RESULT: GI Tract: Small hiatal hernia. Small bowel: No mural hyperenhancement or wall thickening. Colon and Rectum: No mural hyperenhancement or wall thickening. Strictures: None Fistulae/Sinus tracts: None Abscess: None Abdomen: Liver: No mass. Biliary: No bile duct dilation. Gallbladder is unremarkable. Spleen: No mass. No splenomegaly. Pancreas: No mass or duct dilation. Adrenals: No mass. Kidneys: No mass, calculus or hydronephrosis. Lymph nodes: No abdominal or pelvic lymphadenopathy. Mesentery/Peritoneum: Small volume ascites, increased since 12/20/2023. No mass. Vasculature: The celiac axis and SMA are patent. The portal vein and branches, splenic vein, SMV, and hepatic veins are patent. There are atherosclerotic calcifications without aneurysmal dilation. Pelvis: No fluid collection. Mild peritoneal thickening/enhancement in the pelvis. Bones/Soft Tissues: Degenerative changes. Mild subcutaneous edema, decreased since 12/20/2023. Lung Bases: Small right pleural effusion with tunneled right pleural catheter in place. DIVISION OF RADIOLOGY Provider, [facility] - 04/22/2024 * * *Final Report* * * DATE OF EXAM: Apr 22 2024 11:45AM [facility] [place] [facility] ENTEROGRAPHY W IVCON / PROCEDURE REASON: multiple diagnoses * * * * Physician Interpretation * * * * EXAMINATION: CT ABDOMEN AND PELVIS WITH INTRAVENOUS CONTRAST AND NEUTRAL ORAL CONTRAST(CT ENTEROGRAPHY) HISTORY: 74-year-old man with a history of chronic diarrhea TECHNIQUE: CT of the abdomen and pelvis using single phase Enterography technique CONTRAST: IV: 100 ml of Omnipaque 350 Oral: [address] Radiation dose: Integrated dose-length product (DLP) for this visit = 705 mGy*cm. CT Dose Reduction Employed: Automated exposure control (AEC) COMPARISON: CT 12/20/2023 RESULT: GI Tract: Small hiatal hernia. Small bowel: No mural hyperenhancement or wall thickening. Colon and Rectum: No mural hyperenhancement or wall thickening. Strictures: None Fistulae/Sinus tracts: None Abscess: None Abdomen: Liver: No mass. Biliary: No bile duct dilation. Gallbladder is unremarkable. Spleen: No mass. No splenomegaly. Pancreas: No mass or duct dilation. Adrenals: No mass. Kidneys: No mass, calculus or hydronephrosis. Lymph nodes: No abdominal or pelvic lymphadenopathy. Mesentery/Peritoneum: Small volume ascites, increased since 12/20/2023. No mass. Vasculature: The celiac axis and SMA are patent. The portal vein and branches, splenic vein, SMV, and hepatic veins are patent. There are atherosclerotic calcifications without aneurysmal dilation. Pelvis: No fluid collection. Mild peritoneal thickening/enhancement in the pelvis. Bones/Soft Tissues: Degenerative changes. Mild subcutaneous edema, decreased since 12/20/2023. Lung Bases: Small right pleural effusion with tunneled right pleural catheter in place. IMPRESSION IMPRESSION: No active bowel inflammation. Small volume ascites and small right pleural effusion, both increased since 12/20/2023. [facility] Transcribe Date/Time: Apr 22 2024 12:06P Dictated by : MILDRED GRANDA MD This examination was interpreted and the report reviewed and electronically signed by: MILDRED GRANDA MD on Apr 22 2024 12:24PM EST [facility] Radiology Study observation (narrative) [facility] CT Small bowel W contrast PO and W contrast IVOrdered By: [facility]cf Provider on 04-22-2024 [facility] Calprotectin (Stl) [Mass/Mas s]on 04-21-2024 CALPROTECTIN, FECAL QUANTITATIVE 99.0 ug/g High NINF - 50 ug/g [facility] Interpretation and review of laboratory results Abnormal [facility] G. lamblia+Cryptosporidium s p Ag IA Ql (Stl)Ordered By: Bobby Mccallum on 04-21-2024 Cryptosporidium sp Ag Ql (Stl) Negative Negative [facility] G. lamblia Ag Ql (Stl) Negative Negative [facility] Interpretation and review of laboratory results Normal [facility] A single negative te st result does not rule out a parasitic infection. Due to intermittent shedding of parasites, it is recommended that three specimens collected over a 7 day period are submitted to improve detection sensitivity. [facility] Gastrointestinal pathogens i dentified BRYN+probe Nom (Stl)Ordered By: Steven Olsen on 04-21-2024 Campylobacter sp DNA BRYN+probe Nom (Unsp spec) Not detected Not Detected [facility] Interpretation and review of laboratory results Normal [facility] Salmonella sp DNA BRYN+probe Ql (Unsp spec) Not detected Not Detected [facility] Shiga toxin stx gene BRYN+probe Nom (Unsp spec) Not detected Not Detected [facility] Shigella sp DNA BRYN+probe Ql (Unsp spec) Not detected Not Detected [facility] Laboratory - Microbiology an d Antimicrobial susceptibilityon 04-21-2024 M. tuberculosis tuberculin stim IFN-g Ql (Bld) Negative [facility] No Panel Informationon 04-21 ELASTASE INTERPRETATION Normal Normal [facility] ELASTASE-1 CONCENTRATION 553 ug/g 200 - PINF ug/g [facility] Comment on above: Interpretation: <100 ug/g: Severe Exocrine Pancreatic Insufficiency 100-199 ug/g: Mild to Moderate Exocrine Pancreatic Insufficiency >=200 ug/g: Normal Interpretation and review of laboratory results Normal [facility] Mitogen minus Nil 1.19 - PINF [facility] TB Gamma Interpretation Infection with M. tuberculosis complex is unlikely. If latent tuberculosis infection is highly suspected, a negative result does not rule out the infection. Specimens from immunocompromised patients and those <5 years of age may show false negative results. In case of a contact investigation, please repeat 8-12 weeks after a known exposure. [facility] TB Nil NINF [facility] TB1 Ag minus Nil [facility] TB2 Ag minus Nil 0.00 [facility] 25(OH)D3 SerPl-mCncon 2023 25-hydroxyvitamin D3 [Mass/Vol] 36.6 ng/mL Normal 31.0-80.0 [facility] Comment on above: Order Comment: Speci men Type: BLOOD SPECIMENOrdering Facility: Address: [address] [place] [address] Result Comment: Clas sification of 25 [place] Vitamin D status:Deficiency/Insufficiency: < or = 30 ng/ml.Sufficiency/Optimal Levels: 31-80 ng/mLToxicity: > 100 ng/mL.Test performed by chemiluminescent immunoassay. Performed By: #### 1 [id number] ####[facility] [id number] [address] STATES OF [place] 25-hydroxyvitamin D3 [Mass/V ol]on 04-20-2024 Interpretation and review of laboratory results Normal [facility] The reference range interval was based on an analysis of samples from healthy adults and may not pertain to children from 0-18 years old. [facility] BLOOD TB SCREENon 04-20-2024 M. tuberculosis tuberculin stim IFN-g Ql (Bld) Negative Normal [facility] Comment on above: Order Comment: Speci men Type: BLOOD SPECIMENOrdering Facility: Address: [address] [place] [address] Performed By: #### I NFTBP ####[facility] [id number] [place] [address] [place] MITOGEN MINUS NIL 1.19 IU/mL Normal >=0.50 [facility] Comment on above: Order Comment: Speci men Type: BLOOD SPECIMENOrdering Facility: Address: [address] [place] [address] Performed By: #### I NFTBP ####[facility] [id number] [place] [address] [place] TB GAMMA INTERPRETATION Normal [facility] Comment on above: Order Comment: Speci men Type: BLOOD SPECIMENOrdering Facility: Address: [address] [place] [address] Performed By: #### I NFTBP ####[facility] [id number] [address] [place] TB NIL <0.00 Normal <=8.00 [facility] Comment on above: Order Comment: Speci men Type: BLOOD SPECIMENOrdering Facility: Address: [address] [place] [address] Performed By: #### I NFTBP ####[facility] [id number] [place] [address] [place] TB1 AG MINUS NIL <0.00 Normal <0.35 [facility] Comment on above: Order Comment: Speci men Type: BLOOD SPECIMENOrdering Facility: Address: [address] [place] [address] Performed By: #### I NFTBP ####[facility] [id number] [place] [address] [place] TB2 AG MINUS NIL 0.00 IU/mL Normal <0.35 [facility] Comment on above: Order Comment: Speci men Type: BLOOD SPECIMENOrdering Facility: Address: [address] [place] [address] Performed By: #### I NFTBP ####[facility] [id number] [place] [address] [place] C diff Tox gens Stl Ql BRYN+p robeon 04-20-2024 C. difficile toxin genes BRYN+probe Ql (Stl) Negative Normal Negative for C. difficile toxin by PCR [facility] Comment on above: Order Comment: Speci men Type: STOOL SPECIMENOrdering Facility: Address: [address] [place] [address] Performed By: #### 5 [id number], [id number], PANCEF ####[facility] [id number] [place], [place] [address] [place] C. difficile toxin genes BRYN +probe Ql (Stl)on 04-20-2024 Interpretation and review of laboratory results Normal [facility] CBC W Auto Differential pane l (Bld)on 04-20-2024 Basophils (Bld) [#/Vol] 0.04 10*3/uL NINF [facility] Basophils/100 WBC (Bld) 0.5 % [facility] Differential cell count method Nom (Bld) Auto [facility] Eosinophils (Bld) [#/Vol] [facility] Eosinophils/100 WBC (Bld) 0.0 % [facility] Erythrocyte distribution width (RBC) [Ratio] 14.7 % 11.5 - 15.0 % [facility] Hematocrit (Bld) [Volume fraction] 38.0 % Low 39.0 - 51.0 % [facility] Hemoglobin (Bld) [Mass/Vol] 12.0 g/dL Low 13.0 - 17.0 g/dL [facility] Immature granulocytes (Bld) [#/Vol] 0.03 10*3/uL [facility] Immature granulocytes/100 WBC (Bld) 0.4 % [facility] Interpretation and review of laboratory results Abnormal [facility] Lymphocytes (Bld) [#/Vol] 0.95 10*3/uL Low [facility] Lymphocytes/100 WBC (Bld) 11.9 % [facility] MCH (RBC) [Entitic mass] 30.5 pg 26.0 - 34.0 pg [facility] MCHC (RBC) [Mass/Vol] 31.6 g/dL 30.5 - 36.0 g/dL [facility] MCV (RBC) [Entitic vol] 96.7 fL 80.0 - 100.0 fL [facility] Monocytes (Bld) [#/Vol] 1.03 10*3/uL High [facility] Monocytes/100 WBC (Bld) 12.9 % [facility] Neutrophils (Bld) [#/Vol] 5.91 10*3/uL [facility] Neutrophils/100 WBC (Bld) 74.3 % [facility] Nucleated RBC (Bld) [#/Vol] [facility] Nucleated RBC/100 WBC (Bld) [Ratio] 0.0 % /100 WBC [facility] Platelet mean volume (Bld) [Entitic vol] 11.1 fL 9.0 - 12.7 fL [facility] Platelets (Bld) [#/Vol] 267 10*3/uL [facility] RBC (Bld) [#/Vol] 3.93 10*6/uL Low 4.20 - 6.0 0 m/uL [facility] WBC (Bld) [#/Vol] 7.96 10*3/uL [facility] Basophils (Bld) [#/Vol] 0.04 10*3/uL Normal <0.11 [facility] Comment on above: Order Comment: Speci men Type: BLOOD SPECIMENOrdering Facility: Address: [address] [place] [address] Performed By: #### 5 7021-8 ####[facility]CL[facility] [id number] [place] [address] [place] Basophils/100 WBC (Bld) 0.5 % Normal [facility] Comment on above: Order Comment: Speci men Type: BLOOD SPECIMENOrdering Facility: Address: [address] [place] [address] Performed By: #### 5 7021-8 ####[facility] [id number] [place] [address] [place] Differential cell count method Nom (Bld) Auto Normal [facility] Comment on above: Order Comment: Speci men Type: BLOOD SPECIMENOrdering Facility: Address: [address] [place] [address] Performed By: #### 5 7021-8 ####[facility] [id number] [place] [address] [place] Eosinophils (Bld) [#/Vol] 10*3/uL Normal <0.46 [facility] Comment on above: Order Comment: Speci men Type: BLOOD SPECIMENOrdering Facility: Address: [address] [place] [address] Performed By: #### 5 7021-8 ####[facility] [id number] [place] [address] [place] Eosinophils/100 WBC (Bld) 0.0 % Normal [facility] Comment on above: Order Comment: Speci men Type: BLOOD SPECIMENOrdering Facility: Address: [address] [place] [address] Performed By: #### 5 7021-8 ####[facility] LABIA [id number] [place] [address] [place] Erythrocyte distribution width (RBC) [Ratio] 14.7 % Normal 11.5-15.0 [facility] Comment on above: Order Comment: Speci men Type: BLOOD SPECIMENOrdering Facility: Address: [address] [place] [address] Performed By: #### 5 7021-8 ####[facility] LABIA [id number] [place] [address] [place] Hematocrit (Bld) [Volume fraction] 38.0 % Low 39.0-51.0 [facility] Comment on above: Order Comment: Speci men Type: BLOOD SPECIMENOrdering Facility: Address: [address] [place] [address] Performed By: #### 5 7021-8 ####[facility]IA [id number] [place] [address] [place] Hemoglobin (Bld) [Mass/Vol] 12.0 g/dL Low 13.0-17.0 [facility] Comment on above: Order Comment: Speci men Type: BLOOD SPECIMENOrdering Facility: Address: [address] [place] [address] Performed By: #### 5 7021-8 ####[facility]IA [id number] [place] [address] [place] Immature granulocytes (Bld) [#/Vol] 0.03 10*3/uL Normal <0.10 [facility] Comment on above: Order Comment: Speci men Type: BLOOD SPECIMENOrdering Facility: Address: [address] [place] [address] Performed By: #### 5 7021-8 ####[facility]IA [id number] [place] [address] [place] Immature granulocytes/100 WBC (Bld) 0.4 % Normal [facility] Comment on above: Order Comment: Speci men Type: BLOOD SPECIMENOrdering Facility: Address: [address] [place] [address] Performed By: #### 5 7021-8 ####[facility] [id number] [place] [address] [place] Lymphocytes (Bld) [#/Vol] 0.95 10*3/uL Low 1.00-4.00 [facility] Comment on above: Order Comment: Speci men Type: BLOOD SPECIMENOrdering Facility: Address: [address] [place] [address] Performed By: #### 5 7021-8 ####[facility] [id number] [place] [address] [place] Lymphocytes/100 WBC (Bld) 11.9 % Normal [facility] Comment on above: Order Comment: Speci men Type: BLOOD SPECIMENOrdering Facility: Address: [address] [place] [address] Performed By: #### 5 7021-8 ####[facility] [id number] [place] [address] [place] MCH (RBC) [Entitic mass] 30.5 pg Normal 26.0-34.0 [facility] Comment on above: Order Comment: Speci men Type: BLOOD SPECIMENOrdering Facility: Address: [address] [place] [address] Performed By: #### 5 7021-8 ####[facility] [id number] [place] [address] [place] MCHC (RBC) [Mass/Vol] 31.6 g/dL Normal 30.5-36.0 [facility] Comment on above: Order Comment: Speci men Type: BLOOD SPECIMENOrdering Facility: Address: [address] [place] [address] Performed By: #### 5 7021-8 ####[facility] [id number] [place] [address] [place] MCV (RBC) [Entitic vol] 96.7 fL Normal 80.0-100.0 [facility] Comment on above: Order Comment: Speci men Type: BLOOD SPECIMENOrdering Facility: Address: [address] [place] [address] Performed By: #### 5 7021-8 ####[facility] [id number] [place] [address] [place] Monocytes (Bld) [#/Vol] 1.03 10*3/uL High <0.87 [facility] Comment on above: Order Comment: Speci men Type: BLOOD SPECIMENOrdering Facility: Address: [address] [place] [address] Performed By: #### 5 7021-8 ####[facility] [id number] [place] [address] [place] Monocytes/100 WBC (Bld) 12.9 % Normal [facility] Comment on above: Order Comment: Speci men Type: BLOOD SPECIMENOrdering Facility: Address: [address] [place] [address] Performed By: #### 5 7021-8 ####[facility] [id number] [place] [address] [place] Neutrophils (Bld) [#/Vol] 5.91 10*3/uL Normal 1.45-7.50 [facility] Comment on above: Order Comment: Speci men Type: BLOOD SPECIMENOrdering Facility: Address: [address] [place] [address] Performed By: #### 5 7021-8 ####[facility] [id number] [place] [address] [place] Neutrophils/100 WBC (Bld) 74.3 % Normal [facility] Comment on above: Order Comment: Speci men Type: BLOOD SPECIMENOrdering Facility: Address: [address] [place] [address] Performed By: #### 5 7021-8 ####[facility] [id number] [place] [address] [place] Nucleated RBC (Bld) [#/Vol] 10*3/uL Normal <0.01 [facility] Comment on above: Order Comment: Speci men Type: BLOOD SPECIMENOrdering Facility: Address: [address] [place] [address] Performed By: #### 5 7021-8 ####[facility] [id number] [place] [address] [place] Nucleated RBC/100 WBC (Bld) [Ratio] 0.0 /100 WBC Normal [facility] Comment on above: Order Comment: Speci men Type: BLOOD SPECIMENOrdering Facility: Address: [address] [place] [address] Performed By: #### 5 7021-8 ####[facility] [id number] [place] [address] [place] Platelet mean volume (Bld) [Entitic vol] 11.1 fL Normal 9.0-12.7 [facility] Comment on above: Order Comment: Speci men Type: BLOOD SPECIMENOrdering Facility: Address: [address] [place] [address] Performed By: #### 5 7021-8 ####[facility] [id number] [place] [address] [place] Platelets (Bld) [#/Vol] 267 10*3/uL Normal 150-400 [facility] Comment on above: Order Comment: Speci men Type: BLOOD SPECIMENOrdering Facility: Address: [address] [place] [address] Performed By: #### 5 7021-8 ####[facility] [id number] [place] [address] [place] RBC (Bld) [#/Vol] 3.93 10*6/uL Low 4.20-6.00 [facility] Comment on above: Order Comment: Speci men Type: BLOOD SPECIMENOrdering Facility: Address: [address] [place] [address] Performed By: #### 5 7021-8 ####[facility] [id number] [place] [address] [place] WBC (Bld) [#/Vol] 7.96 10*3/uL Normal 3.70-11.00 [facility] Comment on above: Order Comment: Speci men Type: BLOOD SPECIMENOrdering Facility: Address: [address] [place] [address] Performed By: #### 5 7021-8 ####[facility] LABIA [id number] [address] [place] CELIAC SCREENon 04-20-2024 GLIAD DEAMIDATED IGA QUAL Negative Normal Negative, Test not Indicated [facility] Comment on above: Order Comment: Speci men Type: BLOOD SPECIMENOrdering Facility: Address: [address] [place] [address] Result Comment: This is used as an aid in diagnosis of celiac disease. Clinical correlation is required.The following results were obtained with an [employer] QUANTA Lite Gliadin IgA SALBADOR Gliadin. Gliadin IgA values obtained with different manufacturers' assay methods may not be used interchangeably. The magnitude of the reported IgA levels cannot be correlated to an endpoint titer. Performed By: #### L [id number] ####[facility] [id number] [place] [id number] [place] Gliadin peptide IgA Qn (S) 4 Units Normal <20 [facility] Comment on above: Order Comment: Alexandru campos Type: BLOOD SPECIMENOrdering Facility: Address: [address] [place] [address] Performed By: #### L [id number] ####[facility] [id number] [place] [address] [place] INTERPRETATION No serological evide nce of celiac disease, however, if celiac disease is clinically suspected and patient is not on gluten-free diet, histological diagnosis may be considered. HLA testing may help with risk assessment. Normal [facility] Comment on above: Order Comment: Alexandru campos Type: BLOOD SPECIMENOrdering Facility: Address: [address] [place] [address] Performed By: #### L [id number] ####[facility]CL[facility] [id number] [address] TRANSGLUTAMINASE IGA ABS INTERPRETATION Negative Normal Negative [facility] Comment on above: Order Comment: Alexandru campos Type: BLOOD SPECIMENOrdering Facility: Address: [address] [place] [address] Result Comment: The following results were obtained with [employer] QUANTA Lite R h-tTG IgA SALBADOR.???R h-tTG IgA values obtained with different manufacturers' assay methods may not be used interchangeably. The magnitude of the reported IgA levels cannot be corelated to an endpoint???concentration.This is used as an aid in diagnosis of celiac disease. Clinical correlation is required. Performed By: #### L [id number] ####[facility] [id number] [place] [address] [place] tTG IgA Qn (S) <2 Normal <4 [facility] Comment on above: Order Comment: Alexandru campos Type: BLOOD SPECIMENOrdering Facility: Address: [address] [place] [address] Performed By: #### L [id number] ####[facility] [id number] [place] [id number] [place] CRP SerPl-mCncon 04-20-2024 CRP [Mass/Vol] 8.4 mg/dL High <0.9 [facility] Comment on above: Order Comment: Speci men Type: BLOOD SPECIMENOrdering Facility: Address: [address] [place] [address] Performed By: #### 1 988-5, 43355-1, 64753-9, 3034-6 ####[facility] [id number] [place] [address] [place] Calprotectin (Stl) [Mass/Mas s]on 04-20-2024 CALPROTECTIN, FECAL QUANTITATIVE 99.0 ug/g High <50 [facility] Comment on above: Order Comment: Speci men Type: STOOL SPECIMENOrdering Facility: Address: [address] [place] [address] Performed By: #### 5 4067-4, 34308-9, PANCEF ####[facility] LABIA [id number] [place] [address] [place] Cobalamin (Vitamin B12) [Mas s/Vol]on 04-20-2024 Interpretation and review of laboratory results Abnormal [facility] Comprehensive metabolic 2000 panelon 04-20-2024 Albumin [Mass/Vol] 3.8 g/dL Low 3.9 - 4.9 g/dL [facility] ALP [Catalytic activity/Vol] 141 U/L High 38 - 113 U/L [facility] ALT [Catalytic activity/Vol] 14 U/L 10 - 54 U/L [facility] Anion gap [Moles/Vol] 15 mmol/L 8 - 15 mmol/L [facility] AST [Catalytic activity/Vol] 27 U/L 14 - 40 U/L [facility] Bilirubin [Mass/Vol] 0.9 mg/dL 0.2 - 1 .3 mg/dL [facility] Calcium [Mass/Vol] 9.1 mg/dL 8.5 - 10. 2 mg/dL [facility] Chloride [Moles/Vol] 101 mmol/L 98 - 10 7 mmol/L [facility] CO2 [Moles/Vol] 24 mmol/L 22 - 30 mmol/L [facility] Creatinine [Mass/Vol] 1.23 mg/dL High 0.73 - 1.22 mg/dL [facility] GFR/1.73 sq M.predicted among non-blacks MDRD (S/P/Bld) [Vol rate/Area] 62 mL/min/{1.73_m2} - PINF [facility] Comment on above: Estimated Glomerular Filtration Rate (eGFR) is calculated using the 2020 CKD-EPI creatinine equation. This equation utilizes serum creatinine, sex, and age as parameters. The creatinine assay has traceable calibration to isotope dilution-mass spectrometry. Refer to KDIGO guidelines for clinical interpretation. In patients with unstable renal function, e.g. those with acute kidney injury, the eGFR may not accurately reflect actual GFR. Glucose [Mass/Vol] 105 mg/dL High 74 - 99 mg/dL [facility] Comment on above: The [place] Diab[employer] s Association (ADA) provides guidance for cutoff values for fasting glucose and random glucose. The ADA defines fasting as no caloric intake for at least 8 hours. Fasting plasma glucose results between 100 to 125 mg/dL indicate increased risk for diabetes (prediabetes). Fasting plasma glucose results greater than or equal to 126 mg/dL meet the criteria for diagnosis of diabetes. In the absence of unequivocal hyperglycemia, results should be confirmed by repeat testing. In a patient with classic symptoms of hyperglycemia or hyperglycemic crisis, random plasma glucose results greater than or equal to 200 mg/dL meet the criteria for diagnosis of diabetes. Reference: Standards of Medical Care in Diabetes 2016, [place] [employer]. Diabetes Care. 2016.39(Suppl 1). Potassium [Moles/Vol] 3.9 mmol/L 3.7 - 5.1 mmol/L [facility] Protein [Mass/Vol] 7.2 g/dL 6.3 - 8.0 g/dL [facility] Sodium [Moles/Vol] 140 mmol/L 136 - 144 mmol/L [facility] Urea nitrogen [Mass/Vol] 15 mg/dL 9 - 24 mg/dL [facility] Albumin [Mass/Vol] 3.8 g/dL Low 3.9-4.9 [facility] Comment on above: Order Comment: Speci men Type: BLOOD SPECIMENOrdering Facility: Address: [address] [place], [place] [address] Performed By: #### 1 988-5, 49341-8, 32822-8, 3033-6 ####[facility] [id number] [place] [address] [place] ALP [Catalytic activity/Vol] 141 U/L High 38-113 [facility] Comment on above: Order Comment: Speci men Type: BLOOD SPECIMENOrdering Facility: Address: [address] [place] [address] Performed By: #### 1 988-5, 14430-2, 32698-3, 3033-6 ####[facility]CL[facility] [id number] [place] [address] [place] ALT [Catalytic activity/Vol] 14 U/L Normal 10-54 [facility] Comment on above: Order Comment: Speci men Type: BLOOD SPECIMENOrdering Facility: Address: [address] [place] [address] Performed By: #### 1 988-5, 82620-9, 11155-5, 3033-6 ####[facility] [id number] [place] [id number] [place] Anion gap [Moles/Vol] 15 mmol/L Normal 8-15 [facility] Comment on above: Order Comment: Speci men Type: BLOOD SPECIMENOrdering Facility: Address: [address] [place], [place] [address] Performed By: #### 1 988-5, 40529-0, 46978-1, 3033-6 ####[facility] [id number] [place] [id number] [place] AST [Catalytic activity/Vol] 27 U/L Normal 14-40 [facility] Comment on above: Order Comment: Speci men Type: BLOOD SPECIMENOrdering Facility: Address: [address] [place] [address] Performed By: #### 1 988-5, 56548-2, 68985-3, 4-6 ####[facility] [id number] [address] [address] [place] Bilirubin [Mass/Vol] 0.9 mg/dL Normal 0.2-1.3 [facility] Comment on above: Order Comment: Speci men Type: BLOOD SPECIMENOrdering Facility: Address: [address] [place] [address] Performed By: #### 1 988-5, 35492-9, 21649-8, 3033-6 ####[facility] [id number] [place] [address] [place] Calcium [Mass/Vol] 9.1 mg/dL Normal 8.5-10.2 [facility] Comment on above: Order Comment: Speci men Type: BLOOD SPECIMENOrdering Facility: Address: [address] [place] [address] Performed By: #### 1 988-5, 96326-2, 10347-9, 3033-6 ####[facility] [id number] [place] [address] [place] Chloride [Moles/Vol] 101 mmol/L Normal 98-107 [facility] Comment on above: Order Comment: Speci men Type: BLOOD SPECIMENOrdering Facility: Address: [address] [place] [address] Performed By: #### 1 988-5, 31976-6, 73769-4, 3034-6 ####[facility] [id number] [address] [address] [place] CO2 [Moles/Vol] 24 mmol/L Normal 22-30 [facility] Comment on above: Order Comment: Speci men Type: BLOOD SPECIMENOrdering Facility: Address: [address] [place] [id number] Performed By: #### 1 988-5, 38585-2, 89124-4, 6 ####[facility] [id number] [address] [address] [place] Creatinine [Mass/Vol] 1.23 mg/dL High 0.73-1.22 [facility] Comment on above: Order Comment: Speci men Type: BLOOD SPECIMENOrdering Facility: Address: [address] [place] [address] Performed By: #### 1 988-5, 62497-9, 85304-8, 3033-11 ####[facility] LABIA [id number] [place] [address] [place] Creatinine and Glomerular filtration rate.predicted panel (S/P/Bld) 62 mL/min/1.73m??? Normal >=60 [facility] Comment on above: Order Comment: Speci men Type: BLOOD SPECIMENOrdering Facility: Address: [address] [place] [address] Result Comment: Kristel mated Glomerular Filtration Rate (eGFR) is calculated using the 2020 CKD-EPI creatinine equation. This equation utilizes serum creatinine, sex, and age as parameters. The creatinine assay has traceable calibration to isotope dilution-mass spectrometry. Refer to KDIGO guidelines for clinical interpretation. In patients with unstable renal function, e.g. those with acute kidney injury, the eGFR may not accurately reflect actual GFR. Performed By: #### 1 988-5, 01039-0, 34709-5, 3033-6 ####[facility] LABIA [id number] [place] [id number] [place] Glucose [Mass/Vol] 105 mg/dL High 74-99 [facility] Comment on above: Order Comment: Speci men Type: BLOOD SPECIMENOrdering Facility: Address: [address] [place], [place] [address] Result Comment: The [place] Diabetes Association (ADA) provides guidance for cutoff values for fasting glucose and random glucose. The ADA defines fasting as no caloric intake for at least 8 hours. Fasting plasma glucose results between 100 to 125 mg/dL indicate increased risk for diabetes (prediabetes).Fasting plasma glucose results greater than or equal to 126 mg/dL meet the criteria for diagnosis of diabetes. In the absence of unequivocal hyperglycemia, results should be confirmed by repeat testing. In a patient with classic symptoms of hyperglycemia or hyperglycemic crisis, random plasma glucose results greater than or equal to 200 mg/dL meet the criteria for diagnosis of diabetes.Reference: Standards of Medical Care in Diabetes 2016, [place] [employer]. Diabetes Care. 2016.39(Suppl 1). Performed By: #### 1 988-5, 52362-1, 49265-9, 4-6 ####[facility] [id number] [place] [address] [place] Potassium [Moles/Vol] 3.9 mmol/L Normal 3.7-5.1 [facility] Comment on above: Order Comment: Speci men Type: BLOOD SPECIMENOrdering Facility: Address: [address] [place] [address] Performed By: #### 1 988-5, 10230-8, 75894-5, 4-6 ####[facility] LABIA [id number] [place] [id number] [place] Protein [Mass/Vol] 7.2 g/dL Normal 6.3-8.0 [facility] Comment on above: Order Comment: Speci men Type: BLOOD SPECIMENOrdering Facility: Address: [address] [place] [address] Performed By: #### 1 988-5, 09060-9, 23444-7, 4-6 ####[facility]CL[facility] [id number] [place] [id number] [place] Sodium [Moles/Vol] 140 mmol/L Normal 136-144 [facility] Comment on above: Order Comment: Speci men Type: BLOOD SPECIMENOrdering Facility: Address: [address] [place] [address] Performed By: #### 1 988-5, 64710-4, 89523-1, 3034-6 ####[facility] LABIA [id number] [place] [address] [place] Urea nitrogen [Mass/Vol] 15 mg/dL Normal 9-24 [facility] [facility] Comment on above: Order Comment: Speci men Type: BLOOD SPECIMENOrdering Facility: Address: [address] [place] [address] Performed By: #### 1 988-5, 90270-8, 93989-2, 3034-6 ####[facility] [id number] [place] [address] [place] G lamblia+Cryptosp Ag Stl Ql IAon 04-20-2024 G. lamblia+Cryptosporidiu m sp Ag IA Ql (Stl) CRYPTOSPORIDIUM ANTIGEN BY EIA: Negative for Cryptosporidium by EIA. GIARDIA ANTIGEN BY EIA: Negative for Giardia lamblia by EIA. Normal [facility] Comment on above: Performed By: #### 7 9390-1, 54052-1 ####[facility] [id number] [place] [address] [place] Gastrointestinal pathogens i dentified BRYN+probe Nom (Stl)on 04-20-2024 Campylobacter sp DNA BRYN+probe Nom (Unsp spec) Not detected Normal Not Detected [facility] Comment on above: Order Comment: Speci men Type: STOOL SPECIMENOrdering Facility: Address: [address] [place] [address] Performed By: #### 7 9390-1, 37087-3 ####[facility] [id number] [place] [address] [place] Salmonella sp DNA BRYN+probe Ql (Unsp spec) Not detected Normal Not Detected [facility] Comment on above: Order Comment: Speci men Type: STOOL SPECIMENOrdering Facility: Address: [address] [place] [address] Performed By: #### 7 9390-1, 91058-1 ####[facility] [id number] [place] [address] [place] Shiga toxin stx gene BRYN+probe Nom (Unsp spec) Not detected Normal Not Detected [facility] Comment on above: Order Comment: Speci men Type: STOOL SPECIMENOrdering Facility: Address: [address] [place] [address] Performed By: #### 7 9390-1, 39919-3 ####[facility] [id number] [place] [address] [place] Shigella sp DNA BRYN+probe Ql (Unsp spec) Not detected Normal Not Detected [facility] Comment on above: Order Comment: Speci men Type: STOOL SPECIMENOrdering Facility: Address: [address] [place] [address] Performed By: #### 7 9390-1, 36801-1 ####[facility] [id number] [place] [address] [place] HBV surface Ag Ql (S)on Interpretation and review of laboratory results Normal [facility] HBV surface Ag Ser Qlon HBV surface Ag Ql (S) Negative Normal Negative [facility] Comment on above: Order Comment: Speci men Type: BLOOD SPECIMENOrdering Facility: Address: [address] [place] [address] Performed By: #### 5 195-3 ####[facility] [id number] [place] [address] [place] IgA SerPl-mCncon 04-20-2024 IgA [Mass/Vol] 282 mg/dL Normal 70-400 [facility] Comment on above: Order Comment: Speci men Type: BLOOD SPECIMENOrdering Facility: Address: [address] [place] [address] Performed By: #### 2 458-8 ####[facility] [id number] [address] [address] [place] Iron and Iron binding capaci ty panelon 04-20-2024 Iron [Mass/Vol] 26 ug/dL Low 41 - 186 ug/dL [facility] Iron binding capacity [Mass/Vol] 256 ug/dL 232 - 386 ug/dL [facility] Iron/TIBC [Molar ratio] 10.2 % Low 15.0 - 57.0 % [facility] Iron [Mass/Vol] 26 ug/dL Low 41-186 [facility] Comment on above: Order Comment: Speci men Type: BLOOD SPECIMENOrdering Facility: Address: [address] [place] [address] Performed By: #### 1 988-5, 68125-9, 07347-4, 3034-6 ####[facility] [id number] [place] [id number] [place] Iron binding capacity [Mass/Vol] 256 ug/dL Normal 232-386 [facility] Comment on above: Order Comment: Speci men Type: BLOOD SPECIMENOrdering Facility: Address: [address] [place] [address] Performed By: #### 1 988-5, 59960-7, 80035-1, 3034-6 ####[facility] [id number] [place] [id number] [place] Iron/TIBC [Molar ratio] 10.2 % Low 15.0-57.0 [facility] Comment on above: Order Comment: Speci men Type: BLOOD SPECIMENOrdering Facility: Address: [address] [place] [address] Performed By: #### 1 988-5, 48002-7, 17459-5, 3034-6 ####[facility] [id number] [place] [address] [place] Laboratory - Chemistry and C hemistry - challengeon 04-20-2024 CRP [Mass/Vol] 8.4 mg/dL High NINF - 0.9 mg/dL [facility] Transferrin [Mass/Vol] 209 mg/dL 200 - 360 mg/dL [facility] 25-hydroxyvitamin D3 [Mass/Vol] 36.6 ng/mL 31.0 - 80.0 ng/mL [facility] Comment on above: Classification of 25 OH Vitamin D status: Deficiency/Insufficiency: < or = 30 ng/ml. Sufficiency/Optimal Levels: 31-80 ng/mL Toxicity: > 100 ng/mL. Test performed by chemiluminescent immunoassay. Cobalamin (Vitamin B12) [Mass/Vol] 1458 pg/mL High 232 - 1245 pg/mL [facility] Laboratory - Microbiology an d Antimicrobial susceptibilityon 04-20-2024 C. difficile toxin genes BRYN+probe Ql (Stl) Negative Negative for C. difficile toxin by PCR [facility] HBV surface Ag Ql (S) Negative Negative [facility] No Panel Informationon 04-20 Interpretation and review of laboratory results Abnormal [facility] PANC ELASTASE, FECALon 04-20 ELASTASE INTERPRETATION Normal Normal Normal [facility] Comment on above: Order Comment: Speci men Type: STOOL SPECIMENOrdering Facility: Address: [address] [place] [address] Performed By: #### 5 4067-4, 57716-7, PANCEF ####[facility] [id number] [place] [address] [place] ELASTASE-1 CONCENTRATION 553 ug/g Normal >=200 [facility] Comment on above: Order Comment: Speci men Type: STOOL SPECIMENOrdering Facility: Address: [address] [place] [address] Result Comment: Inte rpretation:<100 ug/g: Severe Exocrine Pancreatic Hcsyozbygwink660-268 ug/g: Mild to Moderate Exocrine Pancreatic Insufficiency>=200 ug/g: Normal Performed By: #### 5 4067-4, 56928-6, PANCEF ####[facility] [id number] [place] [address] [place] Transferrin [facility] [place] Transferrin [Mass/Vol] 209 mg/dL Normal 200-360 [facility] Comment on above: Order Comment: Speci men Type: BLOOD SPECIMENOrdering Facility: Address: [address] [place] [address] Performed By: #### 1 988-5, 54947-6, 68470-3, 3034-6 ####[facility] [id number] [place] [address] [place] Transferrin [Mass/Vol]on Interpretation and review of laboratory results Normal [facility] Vit B12 [facility] 024 Cobalamin (Vitamin B12) [Mass/Vol] 1458 pg/mL High 232-1245 [facility] Comment on above: Order Comment: Speci men Type: BLOOD SPECIMENOrdering Facility: Address: [address] [place] [address] Performed By: #### 2 132-9 ####[facility] [id number] [address] [place] GREY BY IFA SCREENOrdered By: Nathaly Black on 03-31-2024 Interpretation and review of laboratory results Normal [facility] Nuclear Ab Ql (S) Negative Negative [facility] Comment on above: Anti-nuclear antibod y test is used as an aid in diagnosis of systemic autoimmune diseases. Where positive and clinically warranted, follow-up using disease-specific testing is recommended. Low positive titers are not uncommon with advanced age, certain chronic infections, and malignancies among others. Test methodology: Indirect fluorescence immunoassay (IFA) using HEp-2 cells. [facility] ANTI NEUTRO CYTO ABon 2023 Interpretation (ANCA) Equivocal staining seen on the ethanol (indirect immunofluorescence screen) slide but negative results on follow up confirmatory testing. Anti-nuclear antibody test may be considered. Clinical correlation is required. [facility] Myeloperoxidase Ab Qn (S) NINF [facility] Neutrophil cytoplasmic Ab.classic IF Ql (S) Negative Negative [facility] Neutrophil cytoplasmic Ab.perinuclear IF Ql (S) Negative Negative [facility] Proteinase 3 Ab Qn (S) NINF [facility] Staff Review (ANCA) Reviewed by Sundar Hilario MD, PhD [facility] This test is used as an aid in diagnosis of patients with autoimmune vasculitides. The final interpretation should be done in conjunction with ANCA test results and clinical correlation. [facility] BLOOD TB SCREENon 03-31-2024 M. tuberculosis tuberculin stim IFN-g Ql (Bld) Negative [facility] Mitogen minus Nil 1.71 - PINF [facility] TB Gamma Interpretation Infection with M. tuberculosis complex is unlikely. If latent tuberculosis infection is highly suspected, a negative result does not rule out the infection. Specimens from immunocompromised patients and those <5 years of age may show false negative results. In case of a contact investigation, please repeat 8-12 weeks after a known exposure. [facility] TB Nil 0.00 [facility] TB1 Ag minus Nil [facility] TB2 Ag minus Nil 0.00 [facility] CRITHIDIA LUCILIAEOrdered By : Sherie Vásquez on 03-31-2024 DNA double strand Ab IF Crithidia luciliae Ql (S) Negative Negative [facility] Comment on above: Crithidia luciliae a ssay is used as an aid in diagnosis of systemic lupus erythematosus (SLE). A negative result cannot rule out SLE. Low positive titers may be seen with other systemic autoimmune diseases. Clinical correlation is required. DNA double strand Ab IF Crit hidia luciliae Ql (S)Ordered By: Sherie Vásquez on 03-31-2024 Interpretation and review of laboratory results Normal [facility] GREY BY IFA SCREENon 03-30-20 24 Nuclear Ab Ql (S) Negative Normal Negative [facility] Comment on above: Order Comment: Speci men Type: BLOOD SPECIMENOrdering Facility: Address: [address] [place] [address] Result Comment: Anti -nuclear antibody test is used as an aid in diagnosis of systemic autoimmune diseases. Where positive and clinically warranted, follow-up using disease-specific testing is recommended. Low positive titers are not uncommon with advanced age, certain chronic infections, and malignancies among others.Test methodology: Indirect fluorescence immunoassay (IFA) using HEp-2 cells. Performed By: #### A GREY THOMASIFS ####[facility] [id number] [place] [address] [place] ANTI NEUTRO CYTO ABon 2023 INTERPRETATION (ANCA) Equivocal staining seen on the ethanol (indirect immunofluorescence screen) slide but negative results on follow up confirmatory testing. Anti-nuclear antibody test may be considered. Clinical correlation is required. Normal [facility] Comment on above: Order Comment: Speci men Type: BLOOD SPECIMENOrdering Facility: Address: [address] [place] [address] Performed By: #### A MARTHA ANAIFS ####[facility] [id number] [address] [place] Myeloperoxidase Ab Qn (S) <0.2 Normal <1.0 [facility] Comment on above: Order Comment: Speci men Type: BLOOD SPECIMENOrdering Facility: Address: [address] [place] [address] Performed By: #### A MARTHA ANAIFS ####[facility] [id number] [address] [place] Neutrophil cytoplasmic Ab.classic IF Ql (S) Negative Normal Negative [facility] Comment on above: Order Comment: Speci men Type: BLOOD SPECIMENOrdering Facility: Address: [address] [place] [address] Performed By: #### A NCYanira ANAIFS ####[facility] [id number] [address] [place] Neutrophil cytoplasmic Ab.perinuclear IF Ql (S) Negative Normal Negative [facility] Comment on above: Order Comment: Speci men Type: BLOOD SPECIMENOrdering Facility: Address: [address] [place] [address] Performed By: #### A ИРИНА THOMASS ####[facility] [id number] [place] [address] [place] [facility] Proteinase 3 Ab Qn (S) <0.2 Normal <1.0 [facility] Comment on above: Order Comment: Speci men Type: BLOOD SPECIMENOrdering Facility: Address: [address] [place] [address] Performed By: #### A GREY THOMASIFS ####[facility] [id number] STAFF REVIEW (ANCA) Reviewed by Sundar Hilario MD, PhD [facility] Comment on above: Order Comment: Speci men Type: BLOOD SPECIMENOrdering Facility: Address: [address] [place] [address] Performed By: #### A ANUPAMA THOMAS ####[facility] [id number] [address] [place] BLOOD TB SCREENon 03-30-2024 M. tuberculosis tuberculin stim IFN-g Ql (Bld) Negative Normal [facility] Comment on above: Order Comment: Speci men Type: BLOOD SPECIMENOrdering Facility: Address: [address] [place] [address] Performed By: #### I NFTBP ####[facility] [id number] [place] [address] [place] MITOGEN MINUS NIL 1.71 IU/mL Normal >=0.50 [facility] Comment on above: Order Comment: Speci men Type: BLOOD SPECIMENOrdering Facility: Address: [address] [place] [address] Performed By: #### I NFTBP ####[facility] [id number] [place] [address] [place] TB GAMMA INTERPRETATION Normal [facility] Comment on above: Order Comment: Speci men Type: BLOOD SPECIMENOrdering Facility: Address: [address] [place] [address] Performed By: #### I NFTBP ####[facility] [id number] [place] [address] [place] TB NIL 0.00 IU/mL Normal <=8.00 [facility] Comment on above: Order Comment: Speci men Type: BLOOD SPECIMENOrdering Facility: Address: [address] [place] [address] Performed By: #### I NFTBP ####[facility] [id number] [place] [address] [place] TB1 AG MINUS NIL <0.00 Normal <0.35 [facility] Comment on above: Order Comment: Speci men Type: BLOOD SPECIMENOrdering Facility: Address: [address] [place] [address] Performed By: #### I NFTBP ####[facility] [id number] [place] [address] [place] TB2 AG MINUS NIL 0.00 IU/mL Normal <0.35 [facility] Comment on above: Order Comment: Speci men Type: BLOOD SPECIMENOrdering Facility: Address: [address] [place] [address] Performed By: #### I NFTBP ####[facility] [id number] [place] [address] [place] C-REACTIVE PROTEINon 024 CRP [Mass/Vol] 2.1 mg/dL High NINF - 0.9 mg/dL [facility] C3 COMPLEMENTon 03-30-2024 Complement C3 [Mass/Vol] 168 mg/dL High 86 - 166 mg/dL [facility] C3 SerPl-mCncon 03-30-2024 Complement C3 [Mass/Vol] 168 mg/dL High 86-166 [facility] Comment on above: Order Comment: Speci men Type: BLOOD SPECIMENOrdering Facility: Address: [address] [place], [place] [address] Performed By: #### 4 498-2, 1987-10, , 4485-02 ####[facility] [id number] [place] [address] [place] C4 COMPLEMENTon 03-30-2024 Complement C4 [Mass/Vol] 42 mg/dL 13 - 46 mg/dL [facility] C4 SerPl-mCncon 03-30-2024 Complement C4 [Mass/Vol] 42 mg/dL Normal 13-46 [facility] Comment on above: Order Comment: Speci men Type: BLOOD SPECIMENOrdering Facility: Address: [address] [place] [address] Performed By: #### 4 498-2, 1987-10, , 4485-02 ####[facility] [id number] [place] [address] [place] CBC W Auto Differential pane l (Bld)on 03-30-2024 Basophils (Bld) [#/Vol] 0.04 10*3/uL [facility] Basophils/100 WBC (Bld) 0.6 % [facility] Differential cell count method Nom (Bld) Auto [facility] Eosinophils (Bld) [#/Vol] [facility] Eosinophils/100 WBC (Bld) 0.0 % [facility] Erythrocyte distribution width (RBC) [Ratio] 15.6 % High 11.5 - 15.0 % [facility] Hematocrit (Bld) [Volume fraction] 38.4 % Low 39.0 - 51.0 % [facility] Hemoglobin (Bld) [Mass/Vol] 11.9 g/dL Low 13.0 - 17.0 g/dL [facility] Immature granulocytes (Bld) [#/Vol] [facility] Immature granulocytes/100 WBC (Bld) 0.3 % [facility] Interpretation and review of laboratory results Abnormal [facility] Lymphocytes (Bld) [#/Vol] 1.21 10*3/uL [facility] Lymphocytes/100 WBC (Bld) 17.7 % [facility] MCH (RBC) [Entitic mass] 29.7 pg 26.0 - 34.0 pg [facility] MCHC (RBC) [Mass/Vol] 31.0 g/dL 30.5 - 36.0 g/dL [facility] MCV (RBC) [Entitic vol] 95.8 fL 80.0 - 100.0 fL [facility] Monocytes (Bld) [#/Vol] 0.80 10*3/uL NINF [facility] Monocytes/100 WBC (Bld) 11.7 % [facility] Neutrophils (Bld) [#/Vol] 4.77 10*3/uL [facility] Neutrophils/100 WBC (Bld) 69.7 % [facility] Nucleated RBC (Bld) [#/Vol] NINF [facility] Nucleated RBC/100 WBC (Bld) [Ratio] 0.0 % /100 WBC [facility] Platelet mean volume (Bld) [Entitic vol] 10.7 fL 9.0 - 12.7 fL [facility] Platelets (Bld) [#/Vol] 243 10*3/uL [facility] RBC (Bld) [#/Vol] 4.01 10*6/uL Low 4.20 - 6.0 0 m/uL [facility] WBC (Bld) [#/Vol] 6.84 10*3/uL [facility] Basophils (Bld) [#/Vol] 0.04 10*3/uL Normal <0.11 [facility] Comment on above: Order Comment: Speci men Type: BLOOD SPECIMENOrdering Facility: Address: [address] [place] [address] Performed By: #### 5 7021-8 ####[facility] [id number] [address] [place] Basophils/100 WBC (Bld) 0.6 % Normal [facility] Comment on above: Order Comment: Speci men Type: BLOOD SPECIMENOrdering Facility: Address: [address] [place] [address] Performed By: #### 5 7021-8 ####[facility] [id number] [place] [address] [place] Differential cell count method Nom (Bld) Auto Normal [facility] Comment on above: Order Comment: Speci men Type: BLOOD SPECIMENOrdering Facility: Address: [address] [place] [address] Performed By: #### 5 7021-8 ####[facility] [id number] [place] [address] [place] Eosinophils (Bld) [#/Vol] 10*3/uL Normal <0.46 [facility] Comment on above: Order Comment: Speci men Type: BLOOD SPECIMENOrdering Facility: Address: [address] [place] [address] Performed By: #### 5 7021-8 ####[facility] [id number] [place] [address] [place] Eosinophils/100 WBC (Bld) 0.0 % Normal [facility] Comment on above: Order Comment: Speci men Type: BLOOD SPECIMENOrdering Facility: Address: [address] [place] [address] Performed By: #### 5 7021-8 ####[facility] [id number] [place] [address] [place] Erythrocyte distribution width (RBC) [Ratio] 15.6 % High 11.5-15.0 [facility] Comment on above: Order Comment: Speci men Type: BLOOD SPECIMENOrdering Facility: Address: [address] [place] [address] Performed By: #### 5 7021-8 ####[facility] [id number] [place] [address] [place] Hematocrit (Bld) [Volume fraction] 38.4 % Low 39.0-51.0 [facility] Comment on above: Order Comment: Speci men Type: BLOOD SPECIMENOrdering Facility: Address: [address] [place] [address] Performed By: #### 5 7021-8 ####[facility] [id number] [place] [address] [place] Hemoglobin (Bld) [Mass/Vol] 11.9 g/dL Low 13.0-17.0 [facility] Comment on above: Order Comment: Speci men Type: BLOOD SPECIMENOrdering Facility: Address: [address] [place] [address] Performed By: #### 5 7021-8 ####[facility] [id number] [place] [address] [place] Immature granulocytes (Bld) [#/Vol] 10*3/uL Normal <0.10 [facility] Comment on above: Order Comment: Speci men Type: BLOOD SPECIMENOrdering Facility: Address: [address] [place] [address] Performed By: #### 5 7021-8 ####[facility] [id number] [place] [address] [place] Immature granulocytes/100 WBC (Bld) 0.3 % Normal [facility] Comment on above: Order Comment: Speci men Type: BLOOD SPECIMENOrdering Facility: Address: [address] [place] [address] Performed By: #### 5 7021-8 ####[facility] [id number] [place] [address] [place] Lymphocytes (Bld) [#/Vol] 1.21 10*3/uL Normal 1.00-4.00 [facility] Comment on above: Order Comment: Speci men Type: BLOOD SPECIMENOrdering Facility: Address: [address] [place] [address] Performed By: #### 5 7021-8 ####[facility] [id number] [place] [address] [place] Lymphocytes/100 WBC (Bld) 17.7 % Normal [facility] Comment on above: Order Comment: Speci men Type: BLOOD SPECIMENOrdering Facility: Address: [address] [place] [address] Performed By: #### 5 7021-8 ####[facility] [id number] [place] [address] [place] MCH (RBC) [Entitic mass] 29.7 pg Normal 26.0-34.0 [facility] Comment on above: Order Comment: Speci men Type: BLOOD SPECIMENOrdering Facility: Address: [address] [place] [address] Performed By: #### 5 7021-8 ####[facility] [id number] [place] [address] [place] MCHC (RBC) [Mass/Vol] 31.0 g/dL Normal 30.5-36.0 [facility] Comment on above: Order Comment: Speci men Type: BLOOD SPECIMENOrdering Facility: Address: [address] [place] [address] Performed By: #### 5 7021-8 ####[facility] [id number] [place] [address] [place] MCV (RBC) [Entitic vol] 95.8 fL Normal 80.0-100.0 [facility] Comment on above: Order Comment: Speci men Type: BLOOD SPECIMENOrdering Facility: Address: [address] [place] [address] Performed By: #### 5 7021-8 ####[facility] [id number] [place] [address] [place] Monocytes (Bld) [#/Vol] 0.80 10*3/uL Normal <0.87 [facility] Comment on above: Order Comment: Speci men Type: BLOOD SPECIMENOrdering Facility: Address: [address] [place] [address] Performed By: #### 5 7021-8 ####[facility] [id number] [place] [address] [place] Monocytes/100 WBC (Bld) 11.7 % Normal [facility] Comment on above: Order Comment: Speci men Type: BLOOD SPECIMENOrdering Facility: Address: [address] [place] [address] Performed By: #### 5 7021-8 ####[facility] [id number] [place] [address] [place] Neutrophils (Bld) [#/Vol] 4.77 10*3/uL Normal 1.45-7.50 [facility] Comment on above: Order Comment: Speci men Type: BLOOD SPECIMENOrdering Facility: Address: [address] [place] [address] Performed By: #### 5 7021-8 ####[facility] [id number] [place] [address] [place] Neutrophils/100 WBC (Bld) 69.7 % Normal [facility] Comment on above: Order Comment: Speci men Type: BLOOD SPECIMENOrdering Facility: Address: [address] [place] [address] Performed By: #### 5 7021-8 ####[facility] [id number] [place] [address] [place] Nucleated RBC (Bld) [#/Vol] 10*3/uL Normal <0.01 [facility] Comment on above: Order Comment: Speci men Type: BLOOD SPECIMENOrdering Facility: Address: [address] [place] [address] Performed By: #### 5 7021-8 ####[facility] [id number] [place] [address] [place] Nucleated RBC/100 WBC (Bld) [Ratio] 0.0 /100 WBC Normal [facility] Comment on above: Order Comment: Speci men Type: BLOOD SPECIMENOrdering Facility: Address: [address] [place] [address] Performed By: #### 5 7021-8 ####[facility] [id number] [place] [address] [place] Platelet mean volume (Bld) [Entitic vol] 10.7 fL Normal 9.0-12.7 [facility] Comment on above: Order Comment: Speci men Type: BLOOD SPECIMENOrdering Facility: Address: [address] [place] [address] Performed By: #### 5 7021-8 ####[facility] [id number] [place] [address] [place] Platelets (Bld) [#/Vol] 243 10*3/uL Normal 150-400 [facility] Comment on above: Order Comment: Speci men Type: BLOOD SPECIMENOrdering Facility: Address: [address] [place] [address] Performed By: #### 5 7021-8 ####[facility] LABIA [id number] [place] [address] [place] RBC (Bld) [#/Vol] 4.01 10*6/uL Low 4.20-6.00 [facility] Comment on above: Order Comment: Speci men Type: BLOOD SPECIMENOrdering Facility: Address: [address] [place] [address] Performed By: #### 5 7021-8 ####[facility] LABIA [id number] [place] [address] [place] WBC (Bld) [#/Vol] 6.84 10*3/uL Normal 3.70-11.00 [facility] Comment on above: Order Comment: Speci men Type: BLOOD SPECIMENOrdering Facility: Address: [address] [place] [address] Performed By: #### 5 7021-8 ####[facility] LABIA [id number] [place] [address] [place] CK SerPl-cCncon 03-30-2024 CK [Catalytic activity/Vol] 56 U/L Normal 51-298 [facility] Comment on above: Order Comment: Speci men Type: BLOOD SPECIMENOrdering Facility: Address: [address] [place] [address] Performed By: #### 2 157-6 ####[facility] LABIA [id number] [place] [address] [place] CK [Catalytic activity/Vol]o n 03-30-2024 Interpretation and review of laboratory results Normal [facility] CNOVon 03-30-2024 CNOV Normal [facility] CREATINE KINASE/CKon 024 CK [Catalytic activity/Vol] 56 U/L 51 - 298 U/L [facility] CRP SerPl-mCncon 03-30-2024 CRP [Mass/Vol] 2.1 mg/dL High <0.9 [facility] Comment on above: Order Comment: Speci men Type: BLOOD SPECIMENOrdering Facility: Address: [address] [place] [address] Performed By: #### 4 498-2, 1987-, 11936-4, 4485-9 ####[facility] [id number] [place] [address] [place] Centromere Ab IF Ql (S)on Centromere Ab Qn (S) <0.2 Normal <1.0 [facility] Comment on above: Order Comment: Speci men Type: BLOOD SPECIMENOrdering Facility: Address: [address] [place] [address] Result Comment: Anti -centromere antibody is used as in aid in diagnosis of systemic sclerosis. Clinical correlation is required.Test Methodology: Multiplex flow immunoassay. Performed By: #### 1 8323-6, 93240-0, 32874-8, 76473-0, 17905-9, 06987-7, 98267-0, 88397-1 ####[facility] LABIA [id number] [place] [address] [place] CENTROMERE AB QUAL Negative Normal Negative [facility] Comment on above: Order Comment: Speci men Type: BLOOD SPECIMENOrdering Facility: Address: [address] [place] [address] Performed By: #### 1 8323-6, 17090-3, 43698-3, 80780-8, 13179-8, 05865-1, 29805-5, 21525-1 ####[facility] [id number] [place] [address] [place] Chromatin Ab Qnon 03-30-2024 CHROMATIN AB QUAL Negative Normal Negative [facility] Comment on above: Order Comment: Speci men Type: BLOOD SPECIMENOrdering Facility: Address: [address] [place] [address] Performed By: #### 1 8323-6, 22373-9, 06655-0, 18385-3, 75242-0, 48524-8, 07458-9, 70866-8 ####[facility] LABIA [id number] [place] [address] [place] Chromatin Ab SerPl-aCncon Chromatin Ab Qn <0.2 Normal <1.0 [facility] Comment on above: Order Comment: Speci men Type: BLOOD SPECIMENOrdering Facility: Address: [address] [place] [address] Result Comment: Test Methodology: Multiplex flow immunoassay. Performed By: #### 1 8323-6, 04519-9, 55182-7, 89433-5, 01565-4, 84281-5, 63355-4, 01022-2 ####[facility] [id number] [address] [place] Complement C4 [Mass/Vol]on Interpretation and review of laboratory results Normal [facility] Comprehensive metabolic 2000 panelon 03-30-2024 Albumin [Mass/Vol] 4.1 g/dL 3.9 - 4.9 g/dL [facility] ALP [Catalytic activity/Vol] 121 U/L High 38 - 113 U/L [facility] ALT [Catalytic activity/Vol] 13 U/L 10 - 54 U/L [facility] Anion gap [Moles/Vol] 10 mmol/L 8 - 15 mmol/L [facility] AST [Catalytic activity/Vol] 22 U/L 14 - 40 U/L [facility] Bilirubin [Mass/Vol] 0.7 mg/dL 0.2 - 1 .3 mg/dL [facility] Calcium [Mass/Vol] 9.0 mg/dL 8.5 - 10. 2 mg/dL [facility] Chloride [Moles/Vol] 105 mmol/L 98 - 10 7 mmol/L [facility] CO2 [Moles/Vol] 27 mmol/L 22 - 30 mmol/L [facility] Creatinine [Mass/Vol] 1.26 mg/dL High 0.73 - 1.22 mg/dL [facility] GFR/1.73 sq M.predicted among non-blacks MDRD (S/P/Bld) [Vol rate/Area] 60 mL/min/{1.73_m2} - PINF [facility] Comment on above: Estimated Glomerular Filtration Rate (eGFR) is calculated using the 2020 CKD-EPI creatinine equation. This equation utilizes serum creatinine, sex, and age as parameters. The creatinine assay has traceable calibration to isotope dilution-mass spectrometry. Refer to KDIGO guidelines for clinical interpretation. In patients with unstable renal function, e.g. those with acute kidney injury, the eGFR may not accurately reflect actual GFR. Glucose [Mass/Vol] 95 mg/dL 74 - 99 mg/dL [facility] Comment on above: The [place] Diabete s Association (ADA) provides guidance for cutoff values for fasting glucose and random glucose. The ADA defines fasting as no caloric intake for at least 8 hours. Fasting plasma glucose results between 100 to 125 mg/dL indicate increased risk for diabetes (prediabetes). Fasting plasma glucose results greater than or equal to 126 mg/dL meet the criteria for diagnosis of diabetes. In the absence of unequivocal hyperglycemia, results should be confirmed by repeat testing. In a patient with classic symptoms of hyperglycemia or hyperglycemic crisis, random plasma glucose results greater than or equal to 200 mg/dL meet the criteria for diagnosis of diabetes. Reference: Standards of Medical Care in Diabetes 2016, [place] [employer] Association. Diabetes Care. 2016.39(Suppl 1). Potassium [Moles/Vol] 4.1 mmol/L 3.7 - 5.1 mmol/L [facility] Protein [Mass/Vol] 7.0 g/dL 6.3 - 8.0 g/dL [facility] Sodium [Moles/Vol] 142 mmol/L 136 - 144 mmol/L [facility] Urea nitrogen [Mass/Vol] 17 mg/dL 9 - 24 mg/dL [facility] Albumin [Mass/Vol] 4.1 g/dL Normal 3.9-4.9 [facility] Comment on above: Order Comment: Speci men Type: BLOOD SPECIMENOrdering Facility: Address: [address] [place] [address] Performed By: #### 4 498-21987-10, , 4485-02 ####[facility] [id number] [place] [address] [place] ALP [Catalytic activity/Vol] 121 U/L High 38-113 [facility] Comment on above: Order Comment: Speci men Type: BLOOD SPECIMENOrdering Facility: Address: [address] [place] [address] Performed By: #### 4 498-2, 1987-10, , 4485-02 ####[facility] [id number] [address] [address] [place] ALT [Catalytic activity/Vol] 13 U/L Normal 10-54 [facility] Comment on above: Order Comment: Speci men Type: BLOOD SPECIMENOrdering Facility: Address: [address] [place] [address] Performed By: #### 4 498-2, 1987-10, , 4485-02 ####[facility] [id number] [place] [address] [place] Anion gap [Moles/Vol] 10 mmol/L Normal 8-15 [facility] Comment on above: Order Comment: Speci men Type: BLOOD SPECIMENOrdering Facility: Address: [address] [place] [address] Performed By: #### 4 498-2, 1987-10, , 4485-02 ####[facility] [id number] [place] [address] [place] AST [Catalytic activity/Vol] 22 U/L Normal 14-40 [facility] Comment on above: Order Comment: Speci men Type: BLOOD SPECIMENOrdering Facility: Address: [address] [place] [address] Performed By: #### 4 498-2, 1987-10, , 4485-02 ####[facility] [id number] [place] [id number] [place] Bilirubin [Mass/Vol] 0.7 mg/dL Normal 0.2-1.3 [facility] Comment on above: Order Comment: Speci men Type: BLOOD SPECIMENOrdering Facility: Address: [address] [place] [address] Performed By: #### 4 498-2, 1987-10, , 4485-02 ####[facility] [id number] [address] [address] [place] Calcium [Mass/Vol] 9.0 mg/dL Normal 8.5-10.2 [facility] Comment on above: Order Comment: Speci men Type: BLOOD SPECIMENOrdering Facility: Address: [address] [place] [address] Performed By: #### 4 498-2, 1987-10, , 4485-02 ####[facility] [id number] [place] [address] [place] Chloride [Moles/Vol] 105 mmol/L Normal 98-107 [facility] Comment on above: Order Comment: Speci men Type: BLOOD SPECIMENOrdering Facility: Address: [address] [place] [address] Performed By: #### 4 498-2, 1987-10, , 4485-02 ####[facility] [id number] [place] [address] [place] CO2 [Moles/Vol] 27 mmol/L Normal 22-30 [facility] Comment on above: Order Comment: Speci men Type: BLOOD SPECIMENOrdering Facility: Address: [address] [place] [address] Performed By: #### 4 498-2, 1987-10, , 4485-02 ####[facility] [id number] [place] [address] [place] Creatinine [Mass/Vol] 1.26 mg/dL High 0.73-1.22 [facility] Comment on above: Order Comment: Speci men Type: BLOOD SPECIMENOrdering Facility: Address: [address] [place] [address] Performed By: #### 4 498-2, 1987-10, , 4485-02 ####[facility] [id number] [place] [address] [place] Creatinine and Glomerular filtration rate.predicted panel (S/P/Bld) 60 mL/min/1.73m??? Normal >=60 [facility] Comment on above: Order Comment: Alexandru campos Type: BLOOD SPECIMENOrdering Facility: Address: [address] [place] [address] Result Comment: Kristel mated Glomerular Filtration Rate (eGFR) is calculated using the 2020 CKD-EPI creatinine equation. This equation utilizes serum creatinine, sex, and age as parameters. The creatinine assay has traceable calibration to isotope dilution-mass spectrometry. Refer to KDIGO guidelines for clinical interpretation. In patients with unstable renal function, e.g. those with acute kidney injury, the eGFR may not accurately reflect actual GFR. Performed By: #### 4 498-2, 1987-10, , 4485-02 ####[facility] [id number] [place] [address] [place] Glucose [Mass/Vol] 95 mg/dL Normal 74-99 [facility] Comment on above: Order Comment: Alexandru campos Type: BLOOD SPECIMENOrdering Facility: Address: [address] [place] [address] Result Comment: The [place] Diabetes Association (ADA) provides guidance for cutoff values for fasting glucose and random glucose. The ADA defines fasting as no caloric intake for at least 8 hours. Fasting plasma glucose results between 100 to 125 mg/dL indicate increased risk for diabetes (prediabetes).Fasting plasma glucose results greater than or equal to 126 mg/dL meet the criteria for diagnosis of diabetes. In the absence of unequivocal hyperglycemia, results should be confirmed by repeat testing. In a patient with classic symptoms of hyperglycemia or hyperglycemic crisis, random plasma glucose results greater than or equal to 200 mg/dL meet the criteria for diagnosis of diabetes.Reference: Standards of Medical Care in Diabetes 2016, [place] [employer]. Diabetes Care. 2016.39(Suppl 1). Performed By: #### 4 498-2, 1987-10, , 9 ####[facility] [id number] [place] [id number] [place] Potassium [Moles/Vol] 4.1 mmol/L Normal 3.7-5.1 [facility] Comment on above: Order Comment: Speci men Type: BLOOD SPECIMENOrdering Facility: Address: [address] [place] [address] Performed By: #### 4 498-2, 1987-10, , 4485-02 ####[facility]CL[facility] [id number] [place] [address] [place] Protein [Mass/Vol] 7.0 g/dL Normal 6.3-8.0 [facility] Comment on above: Order Comment: Speci men Type: BLOOD SPECIMENOrdering Facility: Address: [address] [place] [address] Performed By: #### 4 498-2, 1987-10, , 4485-02 ####[facility]CL[facility] [id number] [place] [id number] [place] Sodium [Moles/Vol] 142 mmol/L Normal 136-144 [facility] Comment on above: Order Comment: Speci men Type: BLOOD SPECIMENOrdering Facility: Address: [address] [place] [address] Performed By: #### 4 498-2, 1987-10, , 4485-02 ####[facility]CL[facility] [id number] [place] [id number] [place] Urea nitrogen [Mass/Vol] 17 mg/dL Normal 9-24 [facility] Comment on above: Order Comment: Speci men Type: BLOOD SPECIMENOrdering Facility: Address: [address] [place] [address] Performed By: #### 4 498-2, 1987-10, , 4485-02 ####[facility] [id number] [place] [id number] [place] RAMO Jo1 Ab Ser-aCncon 2023 Alice-1 extractable nuclear Ab Qn (S) <0.2 Normal <1.0 [facility] Comment on above: Order Comment: Speci men Type: BLOOD SPECIMENOrdering Facility: Address: [address] [place] [address] Performed By: #### 1 8323-6, 68030-0, 13178-2, 22253-9, 22243-2, 70323-7, 53392-8, 34645-4 ####[facility]CL[facility] [id number] [place] [address] [place] RAMO ADOBE MAKER Ab Ser-aCncon 2023 Ribonucleoprotein extractable nuclear Ab Qn (S) <0.2 Normal <1.0 [facility] Comment on above: Order Comment: Speci men Type: BLOOD SPECIMENOrdering Facility: Address: [address] [place] [address] Performed By: #### 1 8323-6, 75545-5, 24224-4, 63670-4, 72275-9, 70182-5, 29204-0, 77738-8 ####[facility]CL[facility] [id number] [place] [address] [place] Ribonucleoprotein extractable nuclear Ab Qn (S) 0.2 AI Normal <1.0 [facility] Comment on above: Order Comment: Speci men Type: BLOOD SPECIMENOrdering Facility: Address: [address] [place] [address] Performed By: #### 1 8323-6, 78150-5, 12711-6, 97172-6, 29849-0, 52204-0, 86208-6, 79513-4 ####[facility] [id number] [place] [address] [place] RAMO SM IgG Ser-aCncon 2023 Winter extractable nuclear IgG Qn (S) <0.2 Normal <1.0 [facility] Comment on above: Order Comment: Speci men Type: BLOOD SPECIMENOrdering Facility: Address: [address] [place] [address] Performed By: #### 1 8323-6, 12049-3, 27679-2, 50597-4, 16780-5, 08439-7, 97373-3, 84804-3 ####[facility] [id number] [place] [address] [place] RAMO SS-A Ab Ser-aCncon 03-30 Sjogrens syndrome-A extractable nuclear Ab Qn (S) <0.2 Normal <1.0 [facility] Comment on above: Order Comment: Speci men Type: BLOOD SPECIMENOrdering Facility: Address: [address] [place] [address] Result Comment: Test Methodology: Multiplex flow immunoassay. Performed By: #### 1 8323-6, 84082-5, 84429-1, 55786-3, 39185-1, 03267-3, 58360-1, 01506-8 ####[facility] [id number] [place] [address] [place] RAMO SS-B Ab Ser-aCncon 03-30 Sjogrens syndrome-B extractable nuclear Ab Qn (S) <0.2 Normal <1.0 [facility] Comment on above: Order Comment: Speci [facility] Type: BLOOD SPECIMENOrdering Facility: Address: [address] [place] [address] Result Comment: Anti -SSB (anti-La) antibody is used as an aid in diagnosis of a variety of systemic autoimmune diseases, especially for Sjogren's syndrome and systemic lupus erythematosus. Clinical correlation is required.Test Methodology: Multiplex flow immunoassay. Performed By: #### 1 8323-6, 64578-0, 32412-1, 43065-6, 41053-1, 28396-1, 17012-0, 83594-5 ####[facility] LABIA [id number] [place] [address] [place] Alice-1 extractable nuclear Ab Qn (S)on 03-30-2024 ALICE 1 ANTIBODY QUAL Negative Normal Negative [facility] Comment on above: Order Comment: Speci men Type: BLOOD SPECIMENOrdering Facility: Address: [address] [place] [address] Result Comment: Anti -ALICE-1 antibody is used as an aid in diagnosis of polymyositis and dermatomyositis especially with pulmonary involvement. A negative result cannot rule out polymyositis or dermatomyositis. Clinical correlation is required.Test Methodology: Multiplex flow immunoassay. Performed By: #### 1 8323-6, 37630-7, 78871-4, 84775-1, 08995-5, 40954-6, 15314-1, 16506-0 ####[facility] [id number] [address] [place] No Panel Informationon 03-30 Interpretation and review of laboratory results Abnormal [facility] PROTEIN / CREATININE RATIOon 03-30-2024 Protein/Creatinine (U) [Mass ratio] 0.17 mg/mg High NINF - 0.15 mg/mg [facility] Comment on above: Adult Proteinuria Ca tegories: <0.15 mg/mg is considered normal to mildly increased 0.15 - 0.50 mg/mg is considered moderately increased >0.50 mg/mg is considered severely increased KDIGO. (2013). KDIGO 2012 Clinical Practice Guideline for the Evaluation and Management of Chronic Kidney Disease. Official Journal of the International Society of Nephrology, 3(1), 1-150. Prot/Creat Uron 03-30-2024 Protein/Creatinine (U) [Mass ratio] 0.17 mg/mg High <0.15 [facility] Comment on above: Order Comment: Speci men Type: URINE SPECIMENOrdering Facility: Address: [address] [place] [address] Result Comment: Adul t Proteinuria Categories:<0.15 mg/mg is considered normal to mildly increased0.15 - 0.50 mg/mg is considered moderately increased>0.50 mg/mg is considered severely increasedKDIGO. (2013). KDIGO 2012 Clinical Practice Guideline for the Evaluation and Management of Chronic Kidney Disease. Official Journal of the International Society of Nephrology, 3(1), 1-150. Performed By: #### 2 890-2 ####[facility] [id number] [place] [address] [place] Protein/Creatinine (U) [Mass ratio]on 03-30-2024 Creatinine (U) [Mass/Vol] 34.5 mg/dL 20.0 - 300.0 mg/dL [facility] Interpretation and review of laboratory results Abnormal [facility] Protein (U) [Mass/Vol] 6 mg/dL 0 - 2 0 mg/dL [facility] Creatinine (U) [Mass/Vol] 34.5 mg/dL Normal 20.0-300.0 [facility] Comment on above: Order Comment: Speci men Type: URINE SPECIMENOrdering Facility: Address: [address] [place] [address] Performed By: #### 2 890-2 ####[facility] [id number] [place] [address] [place] Protein (U) [Mass/Vol] 6 mg/dL Normal 0-20 [facility] Comment on above: Order Comment: Speci men Type: URINE SPECIMENOrdering Facility: Address: [address] [place] [address] Performed By: #### 2 890-2 ####[facility] [id number] [place] [id number] [place] Ribonucleoprotein extractabl e nuclear Ab Qn (S)on 03-30-2024 ANTI-ADOBE MAKER QUAL Negative Normal Negative [facility] Comment on above: Order Comment: Speci men Type: BLOOD SPECIMENOrdering Facility: Address: [address] [place] [address] Performed By: #### 1 8323-6, 29441-1, 51414-7, 70513-3, 55450-5, 40059-1, 44290-5, 76020-0 ####[facility] [id number] [place] [id number] [place] RIBOSOMAL ADOBE MAKER QUAL Negative Normal Negative [facility] Comment on above: Order Comment: Speci beth Type: BLOOD SPECIMENOrdering Facility: Address: [address] [place] [address] Result Comment: Anti -Ribosomal RNA (Ribosomal P) antibody is used as an aid in diagnosis of systemic autoimmune diseases especially systemic lupus erythematosus and mixed connective tissue disease. Cross-reactivity with Anti-winter antibody is not uncommon. Clinical correlation is required.Test Methodology: Multiplex flow immunoassay. Performed By: #### 1 8323-6, 40983-5, 90473-6, 49411-5, 20685-9, 57800-9, 34646-1, 12067-7 ####[facility] [id number] [place] [id number] [place] SCL-70 extractable nuclear I gG IA Qn (S)on 03-30-2024 SCLERODERMA AB QUAL Negative Normal Negative [facility] Comment on above: Order Comment: Alexandru campos Type: BLOOD SPECIMENOrdering Facility: Address: [address] [place] [address] Performed By: #### 1 8323-6, 01014-8, 84791-9, 81730-6, 10274-2, 11397-8, 49261-1, 32545-8 ####[facility] [id number] [place] [address] [place] SCLERODERMA IGG AB <0.2 Normal <1.0 [facility] Comment on above: Order Comment: Alexandru campos Type: BLOOD SPECIMENOrdering Facility: Address: [address] [place] [address] Result Comment: Scl- 70/Scleroderma antibody test is used as an aid in diagnosis of systemic sclerosis especially the diffuse cutaneous form. A negative result cannot rule out systemic sclerosis. The final interpretation should consider clinical picture and other test results such as anti-centromere antibody. Test Methodology: Multiplex flow immunoassay. Performed By: #### 1 8323-6, 37716-0, 45287-9, 59097-9, 68291-5, 77720-5, 96147-3, 30934-2 ####[facility] [id number] [place] [id number] [place] Sjogrens syndrome-A extracta ble nuclear Ab Qn (S)on 03-30-2024 SSA ANTIBODY QUAL Negative Normal Negative [facility] Comment on above: Order Comment: Speci men Type: BLOOD SPECIMENOrdering Facility: Address: [address] [place] [address] Performed By: #### 1 8323-6, 23521-4, 94121-3, 00532-5, 00819-2, 36216-1, 29864-3, 59327-8 ####[facility] [id number] [address] [address] [place] Sjogrens syndrome-B extracta ble nuclear Ab Qn (S)on 03-30-2024 SSB ANTIBODY QUAL Negative Normal Negative [facility] Comment on above: Order Comment: Speci men Type: BLOOD SPECIMENOrdering Facility: Address: [address] [place] [address] Performed By: #### 1 8323-6, 64076-5, 46486-1, 74967-8, 04666-5, 38712-6, 40882-0, 13071-3 ####[facility] [id number] [place] [id number] [place] Winter extractable nuclear Ig G Qn (S)on 03-30-2024 SM ANTIBODY QUAL Negative Normal Negative [facility] Comment on above: Order Comment: Speci men Type: BLOOD SPECIMENOrdering Facility: Address: [address] [place] [address] Result Comment: Anti -Sm (Winter) antibody is used as an aid in diagnosis of systemic lupus erythematosus and its presence is associated with renal disease. A negative result cannot rule out systemic lupus erythematosus. Clinical correlation is required.Test Methodology: Multiplex flow immunoassay. Performed By: #### 1 8323-6, 39353-4, 88291-6, 85075-9, 90057-4, 95959-3, 70523-2, 38291-0 ####[facility] [id number] [facility] [id number] [id number] [place] Urinalysis complete panel (U )on 03-30-2024 Bacteria LM.HPF (Urine sed) [#/Area] Negative Negative /HPF [facility] Bilirubin Ql (U) Negative Negative [facility] Clarity (Unsp spec) Clear Clear [facility] Color (U) Yellow Yellow [facility] Epithelial cells LM.HPF (Urine sed) [#/Area] None Seen /HPF [facility] Glucose Test strip (U) [Mass/Vol] Negative Negative [facility] Hemoglobin Ql (U) Negative Negative [facility] Hyaline casts (Urine sed) [#/Area] 4-10 /LPF Abnormal 0 /LPF [facility] Interpretation and review of laboratory results Abnormal [facility] Ketones Ql (U) Negative Negative [facility] Leukocyte esterase Test strip Ql (U) Negative Negative [facility] Nitrite Ql (U) Negative Negative [facility] pH (U) 6.5 [pH] NINF - 8.5 [facility] Protein (U) [Mass/Vol] Negative Negative Cl [facility] RBC LM.HPF (Urine sed) [#/Area] 0-2 /HPF 0-2 /HPF [facility] Specific gravity (U) [Rel density] 1.010 1.005 - 1.030 [facility] Urobilinogen Ql (U) 0.2 EU/dL 0.2-1.0 EU/dL [facility] WBC LM.HPF (Urine sed) [#/Area] 0-5 /HPF 0-5 /HPF [facility] This test was radha macdonald and its performance characteristics determined by [facility]'s Amna JFlorence [facility] [place] ([facility]). It has not been cleared or approved by the FDA. [facility] is regulated under CLIA as qualified to perform high-complexity testing. This test is used for clinical purposes. It should not be regarded as investigational or for research. [facility] Bacteria LM.HPF (Urine sed) [#/Area] Negative Normal Negative [facility] Comment on above: Order Comment: Speci men Type: URINE SPECIMENOrdering Facility: Address: [address] [place] [address] Performed By: #### 2 4356-8 ####[facility] [id number] [place] [address] [place] Bilirubin Ql (U) Negative Normal Negative [facility] Comment on above: Order Comment: Speci men Type: URINE SPECIMENOrdering Facility: Address: [address] [place] [address] Performed By: #### 2 4356-8 ####[facility] [id number] [place] [address] [place] Clarity (Unsp spec) Clear Normal Clear [facility] Comment on above: Order Comment: Speci men Type: URINE SPECIMENOrdering Facility: Address: [address] [place] [address] Performed By: #### 2 4356-8 ####[facility] [id number] [place] [address] [place] Color (U) Yellow Normal Yellow [facility] Comment on above: Order Comment: Speci men Type: URINE SPECIMENOrdering Facility: Address: [address] [place] [address] Performed By: #### 2 4356-8 ####[facility] [id number] [place] [address] [place] Epithelial cells LM.HPF (Urine sed) [#/Area] None Seen Normal [facility] Comment on above: Order Comment: Speci men Type: URINE SPECIMENOrdering Facility: Address: [address] [place] [address] Performed By: #### 2 4356-8 ####[facility] [id number] [place] [address] [place] Glucose Test strip (U) [Mass/Vol] Negative Normal Negative [facility] Comment on above: Order Comment: Speci men Type: URINE SPECIMENOrdering Facility: Address: [address] [place] [address] Performed By: #### 2 4356-8 ####[facility] [id number] [place] [address] [place] Hemoglobin Ql (U) Negative Normal Negative [facility] Comment on above: Order Comment: Speci men Type: URINE SPECIMENOrdering Facility: Address: [address] [place] [address] Performed By: #### 2 4356-8 ####[facility] [id number] [place] [address] [place] Hyaline casts (Urine sed) [#/Area] 4-10 /LPF Abnormal 0 /LPF [facility] Comment on above: Order Comment: Speci men Type: URINE SPECIMENOrdering Facility: Address: [address] [place] [address] Performed By: #### 2 4356-8 ####[facility] [id number] [place] [address] [place] Ketones Ql (U) Negative Normal Negative [facility] Comment on above: Order Comment: Speci men Type: URINE SPECIMENOrdering Facility: Address: [address] [place] [address] Performed By: #### 2 4356-8 ####[facility] [id number] [place] [address] [place] Leukocyte esterase Test strip Ql (U) Negative Normal Negative [facility] Comment on above: Order Comment: Speci men Type: URINE SPECIMENOrdering Facility: Address: [address] [place] [address] Performed By: #### 2 4356-8 ####[facility] [id number] [place] [address] [place] Nitrite Ql (U) Negative Normal Negative [facility] Comment on above: Order Comment: Speci men Type: URINE SPECIMENOrdering Facility: Address: [address] [place] [address] Performed By: #### 2 4356-8 ####[facility] [id number] [place] [address] [place] pH (U) 6.5 [pH] Normal <8.5 [facility] Comment on above: Order Comment: Speci men Type: URINE SPECIMENOrdering Facility: Address: [address] [place] [address] Performed By: #### 2 4356-8 ####[facility] [id number] [place] [address] [place] Protein (U) [Mass/Vol] Negative Normal Negative [facility] Comment on above: Order Comment: Speci men Type: URINE SPECIMENOrdering Facility: Address: [address] [place] [address] Performed By: #### 2 4356-8 ####[facility] [id number] [place] [address] [place] RBC LM.HPF (Urine sed) [#/Area] 0-2 /HPF Normal 0-2 /HPF [facility] Comment on above: Order Comment: Speci men Type: URINE SPECIMENOrdering Facility: Address: [address] [place] [address] Performed By: #### 2 4356-8 ####[facility] [id number] [place] [address] [place] Specific gravity (U) [Rel density] 1.010 Normal 1.005-1.030 [facility] Comment on above: Order Comment: Speci men Type: URINE SPECIMENOrdering Facility: Address: [address] [place] [address] Performed By: #### 2 4356-8 ####[facility] [id number] [place] [address] [place] Urobilinogen Ql (U) 0.2 EU/dL Normal 0.2-1.0 EU/dL [facility] Comment on above: Order Comment: Speci men Type: URINE SPECIMENOrdering Facility: Address: [address] [place] [address] Performed By: #### 2 4356-8 ####[facility] [id number] [place] [address] [place] WBC LM.HPF (Urine sed) [#/Area] 0-5 /HPF Normal 0-5 /HPF [facility] Comment on above: Order Comment: Speci men Type: URINE SPECIMENOrdering Facility: Address: [address] [place] [address] Performed By: #### 2 4356-8 ####[facility] [id number] [place] [address] [place] dsDNA Ab Ser Ql CLIFon 03-30 DNA double strand Ab IF Crithidia luciliae Ql (S) Negative Normal Negative [facility] Comment on above: Order Comment: Speci men Type: BLOOD SPECIMENOrdering Facility: Address: [address] [place] [address] Result Comment: Crit hidia luciliae assay is used as an aid in diagnosis of systemic lupus erythematosus (SLE). A negative result cannot rule out SLE. Low positive titers may be seen with other systemic autoimmune diseases. Clinical correlation is required. Performed By: #### 6 457-6 ####[facility] [id number] [address] ECHOon 03-26-2024 CONCLUSIONS: - Exam indication: Pericardial Disease - The left ventricle is normal in size. Left ventricular systolic function is normal. EF = 55 5% (visual est.) - The right ventricle is normal in size. Right ventricular systolic function is normal. - The patient has not had a prior [facility] echocardiographic exam for comparison. * * * Final * * * [facility] Echocardiography Report: Transthoracic Echo [facility] Date of service: 03/26/2024 2:34:18 PM Ordering physician: LOUISE DOUGLAS Indication: Pericardial Disease Technologist: Araseli Thomas [facility] and staff Interpreting physician: Romario Lea MD PATIENT: Name: SAV RAYMUNDO : 1950 Age: 74 years Gender: M Primary rhythm: sinus. Height: 182.90 cm BSA: 2.17 m Weight: 92.99 kg BMI: 27.8 kg/m Heart rate 84 bpm Blood pressure 130/84 mmHg Color Doppler was utilized to interrogate the cardiac valves assessed and spectral Doppler was utilized to determine the flow velocities and pressure gradients reported in this exam. MEASUREMENTS: Value Indexed Normal Max aortic dimension 3.4 cm Ao < 3.8 Left atrial volume 52 ml (biplane A-L) 24 ml/m Yuriy <= 34 LV ID (diastole) 4.9 cm (2D) 2.27 cm/m LV ID (systole) 3.7 cm (2D) 1.69 cm/m IVS, leaflet tips 0.8 cm (2D) Posterior wall thickness 0.8 cm (2D) Left ventricular mass 132 g (2D) 61 g/m Ejection Fraction 55 % (visual est.) EF > 52 FINDINGS: LEFT VENTRICLE The left ventricle is normal in size. Left ventricular systolic function is normal globally. Left ventricular diastolic function was not evaluated due to inconsistent or technically suboptimal data. Mitral annular lateral E/e': 5.1. Mitral annular septal E/e': 4.4. RIGHT VENTRICLE The right ventricle is normal in size. Right ventricular systolic function is normal. RV systolic tissue Doppler velocity is 11.0 cm/s. Tricuspid annular displacement is 1.3 cm. Estimated right ventricular systolic pressure is not reported due to an insufficient tricuspid regurgitation signal. Estimated right atrial pressure is 15 mmHg based on IVC assessment. LEFT ATRIUM The left atrial cavity is normal in size. RIGHT ATRIUM The right atrial cavity is normal in size. Inferior Vena Cava: The inferior vena cava appears dilated measuring 2.7 cm. The vessel decreases less than 50 percent with inspiration. MITRAL VALVE The mitral valve leaflets are structurally normal. There is trace mitral valve regurgitation. The pressure half time is 64 msec. The peak mitral E/A ratio is 1.02. The average mitral E/e' ratio is 4.7. The mitral flow deceleration time is 221 msec. TRICUSPID VALVE The tricuspid valve leaflets are structurally normal. There is trace tricuspid valve regurgitation. AORTIC VALVE There is trace aortic valve regurgitation. Tricuspid aortic valve. There is mild thickening. The peak gradient is 5 mmHg (peak velocity = 109.2 cm/s). The LVOT diameter is 2.1 cm. PULMONIC VALVE The pulmonic valve was not seen or not interrogated. There is trace pulmonic valve regurgitation. The peak gradient is 1 mmHg. AORTA The visualized aorta is normal in size. Measurements - Sinus: 3.4 cm. Mid ascending aorta 3.1 cm. PULMONARY ARTERIES The pulmonary arteries are unseen or not interrogated. INTERATRIAL SEPTUM There is no evidence of intracardiac shunting as detected by Doppler. INTERVENTRICULAR SEPTUM There is abnormal motion of the interventricular septum. PERICARDIUM There is no pericardial effusion. [facility] Echocardiography Echocardiography Rep ort: Transthoracic Echo [facility] Date of service: 03/26/2024 2:34:18 PM Ordering physician: LOUISE DOUGLAS Indication: Pericardial Disease Technologist: Araseli Thomas [facility] and staff Interpreting physician: Romario Lea MD PATIENT: Name: SAV RAYMUNDO : 1950 Age: 74 years Gender: M Primary rhythm: sinus. Height: 182.90 cm BSA: 2.17 m Weight: 92.99 kg BMI: 27.8 kg/m Heart rate 84 bpm Blood pressure 130/84 mmHg Color Doppler was utilized to interrogate the cardiac valves assessed and spectral Doppler was utilized to determine the flow velocities and pressure gradients reported in this exam. MEASUREMENTS: Value Indexed Normal Max aortic dimension 3.4 cm Ao < 3.8 Left atrial volume 52 ml (biplane A-L) 24 ml/m Yuriy <= 34 LV ID (diastole) 4.9 cm (2D) 2.27 cm/m LV ID (systole) 3.7 cm (2D) 1.69 cm/m IVS, leaflet tips 0.8 cm (2D) Posterior wall thickness 0.8 cm (2D) Left ventricular mass 132 g (2D) 61 g/m Ejection Fraction 55 % (visual est.) EF > 52 FINDINGS: LEFT VENTRICLE The left ventricle is normal in size. Left ventricular systolic function is normal globally. Left ventricular diastolic function was not evaluated due to inconsistent or technically suboptimal data. Mitral annular lateral E/e': 5.1. Mitral annular septal E/e': 4.4. RIGHT VENTRICLE The right ventricle is normal in size. Right ventricular systolic function is normal. RV systolic tissue Doppler velocity is 11.0 cm/s. Tricuspid annular displacement is 1.3 cm. Estimated right ventricular systolic pressure is not reported due to an insufficient tricuspid regurgitation signal. Estimated right atrial pressure is 15 mmHg based on IVC assessment. LEFT ATRIUM The left atrial cavity is normal in size. RIGHT ATRIUM The right atrial cavity is normal in size. Inferior Vena Cava: The inferior vena cava appears dilated measuring 2.7 cm. The vessel decreases less than 50 percent with inspiration. MITRAL VALVE The mitral valve leaflets are structurally normal. There is trace mitral valve regurgitation. The pressure half time is 64 msec. The peak mitral E/A ratio is 1.02. The average mitral E/e' ratio is 4.7. The mitral flow deceleration time is 221 msec. TRICUSPID VALVE The tricuspid valve leaflets are structurally normal. There is trace tricuspid valve regurgitation. AORTIC VALVE There is trace aortic valve regurgitation. Tricuspid aortic valve. There is mild thickening. The peak gradient is 5 mmHg (peak velocity = 109.2 cm/s). The LVOT diameter is 2.1 cm. PULMONIC VALVE The pulmonic valve was not seen or not interrogated. There is trace pulmonic valve regurgitation. The peak gradient is 1 mmHg. AORTA The visualized aorta is normal in size. Measurements - Sinus: 3.4 cm. Mid ascending aorta 3.1 cm. PULMONARY ARTERIES The pulmonary arteries are unseen or not interrogated. INTERATRIAL SEPTUM There is no evidence of intracardiac shunting as detected by Doppler. INTERVENTRICULAR SEPTUM There is abnormal motion of the interventricular septum. PERICARDIUM There is no pericardial effusion. CONCLUSIONS: - Exam indication: Pericardial Disease - The left ventricle is normal in size. Left ventricular systolic function is normal. EF = 55 5% (visual est.) - The right ventricle is normal in size. Right ventricular systolic function is normal. - The patient has not had a prior CC echocardiographic exam for comparison. * * * Final * * * [facility] : [id number] Normal [facility] LVEF ECHOon 03-26-2024 LV Ejection Fraction 55 % [facility] Comment on above: (visual est.) EF > 5 2 An LV Ejection Fraction of > 50% is normal No Panel Informationon 03-26 [facility] CNOVon 03-17-2024 CNOV Office Visit ([facility] ) -- SAV RAYMUNDO ([id number]) 1950 Date Time Provider Department 03/17/24 1:30 PM RUMA CHRISTINA During your visit today, we recorded the following information about you: Temperature Pulse Respiration Blood pressure 97.3 degrees 88/minute 16/minute 132/78 Weight Height 94.3 kg 1.778 m Ruma Christina PA-C 03/17/2024 2:26 PM Signed [facility] - OUTPATIENT THORACIC SURGERY CLINIC NOTE PT NAME: Sav Cantu [facility] NO: [id number] THORACIC SURGEON: Ronaldo Simmons M.D. DATE OF SERVICE: 03/17/2024 PRINCIPAL DX: Pleural Effusion SURGICAL HX 11/20/2023: R VATS pleural biopsy, right mechanic assistant and doxycycline pleurodesis, right Pleurx catheter insertion, right 20Fr chest tube insertion Surgical Pathology: FINAL DIAGNOSIS A. Right pleura, biopsy: - Chronic pleuritis with mesothelial hyperplasia (see comment). B. Right pleura, biopsy: - Acute organizing and chronic pleuritis (see comment). TN/ 11/22/2023 Diagnosis Comment A. The biopsy contains pleural tissue with chronic inflammation and focal reactive mesothelial hyperplasia. An immunohistochemical stain for BAP 1 shows retained nuclear expression of the mesothelial cells. B. The pleura shows areas with extensive granulation tissue associated with reactive mesenchymal mesothelial proliferation. Immunohistochemical stains were performed to exclude the possibility of mesothelial or vascular neoplasm. The mesothelial proliferation is positive for cytokeratin CAM 5.2, cytokeratin AE1/AE3, WT1, and focally for calretinin and smooth muscle actin. The cytokeratin stains do not show extension of the mesothelial proliferation into deeper adjacent tissues. All cells are negative for claudin-4. ERG highlights the vascular network of thin walled vessels arranged mostly perpendicular to the pleural surface. A BAP 1 stain shows retained nuclear expression. PU 1 highlights numerous histiocytes associated with the reactive proliferation. Drs. Della Subramanian and Zeus Hinton have also reviewed this case and agree that there is no definitive evidence of malignancy. Right pleural fluid cytology: FINAL DIAGNOSIS A - Pleural Cavity, Right, Fluid, Thoracentesis - Right pleural fluid Negative for malignant cells. Acute and chronic inflammation. The following cell blocks were associated with this case: A1 Cell Block, Alcohol Fixed REASON FOR VISIT: Post-operative visit HPI: Sav Raymundo is a 73 year old male with a PmHX significant for HTN, hyperlipidemia, gout, GERD. Patient seen 07/2023 for a few months lasting cough. He had a chest CT on 08/15/23 showing moderate R pleural effusion. He had thoracentesis twice on 09/04/23 and 10/01/2023, cytology was negative both times and chemical analysis was consistent with an exudate. The right pleural effusion persists per most recent CT on 10/18/23. He also has a small to moderate pericardial effusion seen on imaging and on ECHO that was done in 09/04/23, otherwise with good cardiac function(pericardial effusion almost completely resolved on last CT). Imaging has also been consistent with small to moderate left pleural effusion that has almost completely resolved on last CT. On 11/20/2023, patient underwent R VATS pleural biopsy, right mechanic assistant and doxycycline pleurodesis, right Pleurx catheter insertion, right 20Fr chest tube insertion. He was hospitalized 12/20/23 for anasarca, possible autoimmune disease, recurrent pleural effusion. Imaging did not reveal any acute findings. Patient was admitted to [facility] and started on lasix drip, improving anasarca and pleural effusion. Pleurx catheter was drained daily with significantly decreasing output [phone]. He was worked up for an autoimmune disease as well. He was discharged on an increased dose of lasix (20mg > 80mg) and started on Plaquenil. PHYSICAL EXAM: VITAL SIGNS: BP 132/78 (BP Site: Left Arm, BP Position: Sitting, BP Cuff Size: Small Adult) Pulse 88 Temp 36.3 ?C (97.3 ?F) (Temporal) Resp 16 Ht 177.8 cm (5' 10 ) Wt 94.3 kg (207 lb 14.3 oz) SpO2 98% BMI 29.83 kg/m? Room air General appearance: Well appearing, alert, in no acute distress, well-hydrated, well nourished. Skin: Skin color, texture, turgor normal, no suspicious rashes or lesions Lungs: Lungs clear to auscultation. No wheezing, rhonchi, rales Heart: RRR without murmur, gallop, or rubs. No ectopy Abdomen: Normal abdominal exam Extremities: No deformities, edema, skin discoloration, clubbing or cyanosis. Musculoskeletal: No joint swelling, deformity, or tenderness Neuro: Gait normal. Sensation grossly intact. Drain/Tubes: Pleurex Catheter CXR 03/17/2024 INTERVAL HISTORY Sav Raymundo presents to clinic today for postoperative visit. [facility] RN called in 03/03 reporti (more content not included)... Normal [facility] CNOV Office Visit ([facility]) -- SAV RAYMUNDO ([id number]) 1950 M Date Time Provider Department 03/17/24 10:20 AM LOUISE DOUGLAS During your visit today, we recorded the following information about you: Pulse Blood pressure Weight 82/minute 126/84 93 kg Jacqueline García RN 03/17/2024 10:25 AM Signed Sav Raymundo is a very pleasant 74 year old male who presents today for pleural effusion (November 19), still has chest drainage tube Pleurex tube After surgery, fluid still gathering around right lung. Last seen by Pulmonary Doctor? Dr. Gotti in [facility]. Outside of [facility]. Is Dr. Douglas on Care Team as Legal Analyst? no Meds reviewed - Refills pended?no Since last seen Have you had any resp illnessses, COVID, exacerbations or recent visits to ER?hospital/Urgent-Care? [place] December 19 x 1 week, Vaccines: Immunization History Administered Date(s) Administered COVID-19 original vaccine, age 12+ yr, monovalent ([employer]ine[employer]-Quantifeed - PURPLE TOP) 08/15/2020 08/22/2020 09/13/2020 05/10/2021 influenza (aIIV3) vaccine, age 65+ yr, trivalent, PF (FLUAD) 05/09/2020 pneumococcal conjugate (PCV13) vaccine, 13 valent (PREVNAR 13) 11/26/2016 pneumococcal polysaccharide (PPV23) vaccine, 23 valent (PNEUMOVAX 23) 02/03/2018 tetanus diphtheria (Td) vaccine, age 7+ yr, 5 Lf tetanus, PF (TENIVAC) 06/04/2018 08/30/2018 zoster (RZV) vaccine, recombinant (SHINGRIX) 08/30/2018 Modified [facility] [place] Dyspnea Scale (MMRC) I stop for breath after walking about 100 yards or after a few minutes on level ground 3 Patient Entered Questionnaires 10/23/2023 PROMIS [employer] - (T-Scores - the mean of general population = 50. Five points is a clinically meaningful difference.) Physical T-Score 44.9 Mental T-Score 43.5 Louise Douglas MD 03/18/2024 8:55 AM Signed Mr. Raymundo is a 74 year old male who presents to the [facility] [place]. Consultation requested by Dr. Meyers and Dr. Ronaldo Simmons. My final recommendations/evaluation will be communicated back to the requesting physician by way of shared medical record or letter via US mail. This note was partially created using [employer] Voice recognition software and is inherently subject to errors including those of syntax and ?sound-alike? substitutions which may escape proofreading. In such instances, original meaning may be extrapolated by contextual derivation. HPI on March 17, 2024: Sav Raymundo is a gentleman in his 70s, presenting to the pulmonary clinic, for chronic cough and recurrent right-sided pleural effusion s/p R-VATS pleural biopsy, right mechanic assistant and doxycycline pleurodesis, right Pleurx catheter insertion, on 12/10/2023. Mr. Kumar presents with an interesting history. He is a semiretired gentleman from the [employer] [facility], with virtually no past medical history, very active, started having issues since last year in March 2023. He presented with a bout of coughing, was treated by his primary care physician with a Z-Tanner with little effect. In the next few months his cough got worse, but with no significant dyspnea, and the cough was dry. He was treated with prednisone with excellent effect. In June 2023-he was given prednisone again, and he went on a cruise, and once the prednisone was finished his cough came back. Throughout the next few months he has been on prednisone off-and-on, and every time he has been on prednisone the cough has completely resolved. Due to his persistent coughing bouts, an x-ray was obtained, which showed right-sided pleural effusion, and he was referred to a local social work instructor. He underwent thoracentesis several times, each time pleural fluid analysis showed exudative fluid. CT scan was obtained locally which did not reveal much except pleural effusion. CT scan also shows pericardial effusion. He was then referred by his local social work instructor to [facility] for a pleurodesis. In November 2023, he underwent VATS pleurodesis (mechanical and doxycycline), with pleural biopsy, and the Pleurx catheter was also placed. Analysis of the pleural fluid and biopsies of the pleura showed acute and chronic pleuritis with organization, but no malignancy. We do not have pleural fluid chemical or hematological analysis done in [facility], but cytology was negative for malignant cells. He was discharged with Pleurx catheter, and and has been draining pleural fluid about 500 to 800 mL every other day. And his dry cough has also been persistent. In December 2023, he was sent to [facility] after seeing thoracic surgery ADRIENNE for anasarca, and was admitted. His abdomen and subcutaneous tissues especially in his legs were swollen, no ascites found, but significant skin edema including blisters were seen. He improved with Lasix drip, was evaluated by rheumatology, and so far his sero (more content not included)... Normal [facility] CT CHEST W IVCONon 4 CT CHEST W IVCON * * *Final Report* * * DATE OF EXAM: Mar 17 2024 4:02PM EUC 0539 - CT CHEST W IVCON / PROCEDURE REASON: Interstitial pulmonary disease (HCC) * * * * Physician Interpretation * * * * RESULT: EXAMINATION: CHEST CT WITH CONTRAST CLINICAL HISTORY: Pleuritis Technique: Spiral CT acquisition of the chest from the thoracic inlet to the upper abdomen following IV contrast. MQ: CTCW_6 Contrast: 50 mL Omnipaque [address] Radiation dose: Integrated Dose-length product (DLP) for this visit = 394 mGy*cm CT Dose Reduction Employed: Automated exposure control(AEC) and iterative recon Comparison: 10/18/2023 RESULT: Limitations: None. Lines, tubes, and devices: None. Lung parenchyma and airways: Evaluation of lung parenchyma demonstrates scattered groundglass opacities in the posterior right upper lobe. This is new since previous exam. The left lung remains clear. No bronchiectasis or pneumothorax is identified. There is dependent/compressive right lower lobe atelectasis. Pleural space: A well-positioned right-sided chest tube is in place. A small to moderate size persistent right-sided pleural effusion is present. No left-sided pleural fluid is present. Lower neck, lymph nodes, and mediastinum: The imaged thyroid gland is normal. No lymphadenopathy in the supraclavicular, axillary, mediastinal, or hilar regions. Heart, pericardium, and thoracic vessels: The thoracic aorta and main pulmonary artery are normal in caliber. The cardiac chambers are normal in size. No coronary artery atherosclerotic calcifications are noted, although the study is not optimized for coronary assessment. No pericardial effusion or thickening. Bones and soft tissues: No destructive bone lesion. Chest wall is unremarkable. Upper abdomen: No abnormality in the imaged upper abdomen. Localizer images: No additional findings. IMPRESSION: 1. A few scattered groundglass opacities are present in the posterior right upper lobe suggestive of an infectious/inflammatory process. This is new since previous exam. 2. Well-positioned right-sided chest tube with a persistent small to moderate-sized pleural effusion. Transcribed Using Voice Recognition Transcribe Date/Time: Mar 21 2024 4:28P Dictated by: BERT FITZPATRICK MD This examination was interpreted and the report reviewed and electronically signed by: BERT FITZPATRICK MD on Mar 21 2024 4:33PM EST [id number] Normal [facility] NITRIC OXIDE, EXHALEDon 10-0 Chelsy Cadena RRT 03/17/2024 8:16 AM RESPIRATORY THERAPY ORAL EXHALED NITRIC OXIDE SERVICE DATE: 03/17/2024 SERVICE TIME: 8:16 AM Oral Exhaled Nitric Oxide measurement: 13.0 (ppb) Normal: Adult <25 ppb, pediatric (<12 years) <20 ppb High Normal / Increased: Adult 25-50 ppb, pediatric (<12 years) 20-35 ppb Moderately raised exhaled Nitric Oxide may indicate underlying inflammation, but note that: Cold and influenza can raise exhaled Nitric Oxide and some patients have higher baseline exhaled Nitric Oxide levels than others. High: Adult >50 ppb, pediatric (<12 years) >35 ppb Indicative of ongoing eosinophilic inflammation. Symptomatic patient likely to respond to steroids. Possible causes (if already on steroids): Poor compliance, recent allergen exposure, steroid dose inadequate, and steroid resistance. Note that not all patients with high exhaled nitric oxide levels display symptoms. Oral Exhaled Nitric Oxide measurement (Previous Encounters) Test Date Oral Exhaled Nitric Oxide (ppb) 03/17/2024 13.0 NAME: Chelsy Cadena RRT PATIENT NAME: Sav Raymundo DATE: March 17, 2024 TIME: 8:16 AM [facility] No Panel Informationon 03-17 DLCO (ml/min/mmHg) 21.86 ml/min/mmHg [facility] DLCO LLN (ml/min/mmHg) 15.50 ml/min/mmHg C [facility] DLCO PREDICTED (ml/min/mmHg) 25.43 ml/min/mmHg [facility] DLCO ULN (ml/min/mmHg) 35.37 ml/min/mmHg C [facility] DLCO/VA (ml/min/mmHg/L) 4.85 ml/min/mmHg /L [facility] DLCO/VA PREDICTED (ml/min/mmHg/L) 3.84 ml/min/mmHg /L [facility] DLCOcor PREDICTED (ml/min/mmHg) 25.43 ml/min/mmHg [facility] ERV BOX (L) 0.01 L [facility] ERV PREDICTED (L) 1.32 L/S [facility] FRC Box (L) 2.34 L [facility] IC BOX (L) 2.71 L [facility] IC PREDICTED (L) 2.65 L/S [facility] RV Box (L) 2.07 L [facility] RV Box PREDICTED (L) 2.[address] [facility] RV/TLC Box (%) 44 % [facility] RV/TLC Box PREDICTED (%) 37 % [facility] SVC LLN (L) 2.94 L/S [facility] SVC PREDICTED (L) 3.97 L/S [facility] SVC ULN (L) 5.01 L/S [facility] TLC Box (L) 4.72 L [facility] TLC Box PREDICTED (L) 7.03 L [facility] (L) 4.51 L [facility] VA PREDICTED (L) 6.81 L [facility] VC (L) BOX 2.72 L [facility] [address] [facility], [place] [address] Test Date: 2024-03-17 Pat Name: SAV RAYMUNDO Department: Room: Gender: Male Process Expert: : 1950 Requested By: Kathy Hartman MD Order Number: [id number] Reading MD: Kathy Hartman MD Interpretive Statements Current ATS/ERS acceptability and repeatability standards for DLCO met with 2 acceptable maneuvers. Lung Volumes repeatable x 3. //MW IMPRESSION: Decrease in TLC indicates restriction. The diffusing capacity is normal. Electronically Signed On 03-17-2024 14:02:07 EDT by Kathy Hartman MD ID: [id number] Name: SAV RAYMUNDO Race: White Ht: 69.96 in Wt: 209.44 lbs Age: 74 Gender: Male : 1950 Dx: Idiopathic interstitial pulmonary disease_ Smoking Hx: Non-smoker Doctor: LOUISE DOUGLAS Test Date: 03/17/2024 Site: [facility] Tech: Was, Wes PRE-BRONCH POST-BRONCH Pre LLN Pred ULN %Pred Post %Pred %Chg LUNG VOLUMES TGV (L) 2.34 2.57 3.75 4.94 62 ERV (L) 0.01 1.32 1 RV (Pleth) (L) 2.07 1.89 2.51 3.12 82 SVC (L) 2.72 2.94 3.97 5.01 68 IC (L) 2.71 2.65 102 TLC (Pleth) (L) 4.72 5.72 7.03 8.33 67 RV/TLC (Pleth) (%) 44 29 37 44 119 LUNG DIFFUSION DLCOunc (ml/min/mmHg) 21.86 15.50 25.43 35.37 85 VA (L) 4.51 5.45 6.81 8.18 66 DLunc/VA (ml/min/mmHg/L) 4.85 2.64 3.84 5.05 126 BHT (sec) 9.83 IVC (L) 2.78 Comments: Current ATS/ERS acceptability and repeatability standards for DLCO met with 2 acceptable maneuvers. Lung Volumes repeatable x 3. //MW PULMONARY FUNCTION LAB [facility] XR CHEST 2V FRONTAL/LATon XR CHEST 2V FRONTAL/LAT * * *Final Report* * * DATE OF EXAM: Mar 17 2024 8:41AM MYX 5291 - XR CHEST 2V FRONTAL/LAT / PROCEDURE REASON: Chronic bronchitis, unspecified chronic bronchitis type (HCC) * * * * Physician Interpretation * * * * EXAMINATION: CHEST RADIOGRAPH (2 VIEW FRONTAL and LATERAL) CLINICAL HISTORY: Chronic bronchitis, unspecified chronic bronchitis type (HCC) MQ: XC2_6 EXAM DATE/TIME: 03/17/2024 8:41 AM COMPARISON: 02/04/2024 RESULT: Lines, tubes, and devices: A Pleurx catheter travels to the right posterior hemithorax Lungs and pleura: Small radiopaque fusion noted. Right basilar atelectasis. No pneumothorax seen. Cardiomediastinal silhouette: Normal cardiomediastinal silhouette. Bones and soft tissues: Unremarkable. IMPRESSION: Small right effusion noted slightly increased. Right-sided Pleurx catheter present. Capsule Filler: PSCB Transcribe Date/Time: Mar 19 2024 4:42P Dictated by : KALEY CHAMBERS MD This examination was interpreted and the report reviewed and electronically signed by: KALEY CHAMBERS MD on Mar 19 2024 4:43PM EST [id number] Normal [facility] Basic metabolic 2000 panelon 03-03-2024 Anion gap [Moles/Vol] 12 mmol/L Normal 8-15 [facility] Comment on above: Order Comment: Speci men Type: BLOOD SPECIMENOrdering Facility: Address: [address] [place] [address] Performed By: #### 2 4321-2, ####[facility] LABCLIA [id number] [place] [address] Calcium [Mass/Vol] 9.9 mg/dL Normal 8.5-10.2 [facility] Comment on above: Order Comment: Speci men Type: BLOOD SPECIMENOrdering Facility: Address: [address] [place] [address] Performed By: #### 2 4321-2, ####[facility] LABCLIA [id number] [place] [address] Chloride [Moles/Vol] 102 mmol/L Normal 98-107 [facility] Comment on above: Order Comment: Speci men Type: BLOOD SPECIMENOrdering Facility: Address: [address] [place], [place] [address] Performed By: #### 2 432-2, ####[facility] LABCLIA [id number] [place] [address] CO2 [Moles/Vol] 27 mmol/L Normal 22-30 [facility] Comment on above: Order Comment: Speci men Type: BLOOD SPECIMENOrdering Facility: Address: [address] [place] [address] Performed By: #### 2 4322, ####[facility] LABCLIA [id number] [place] [address] Creatinine [Mass/Vol] 1.15 mg/dL Normal 0.73-1.22 [facility] Comment on above: Order Comment: Speci men Type: BLOOD SPECIMENOrdering Facility: Address: [address] [place] [address] Performed By: #### 2 4320-07, ####[facility] LABIA [id number] [place] [address] Creatinine and Glomerular filtration rate.predicted panel (S/P/Bld) 68 mL/min/1.73m??? Normal >=60 [facility] Comment on above: Order Comment: Speci men Type: BLOOD SPECIMENOrdering Facility: Address: [address] [place] [address] Result Comment: Kristel mated Glomerular Filtration Rate (eGFR) is calculated using the 2020 CKD-EPI creatinine equation. This equation utilizes serum creatinine, sex, and age as parameters. The creatinine assay has traceable calibration to isotope dilution-mass spectrometry. Refer to KDIGO guidelines for clinical interpretation. In patients with unstable renal function, e.g. those with acute kidney injury, the eGFR may not accurately reflect actual GFR. Performed By: #### 2 4321-2, ####[facility] LABCLIA [id number] [place] [address] Glucose [Mass/Vol] 110 mg/dL High 74-99 [facility] Comment on above: Order Comment: Speci men Type: BLOOD SPECIMENOrdering Facility: Address: [address] [place] [address] Result Comment: The [place] Diabetes Association (ADA) provides guidance for cutoff values for fasting glucose and random glucose. The ADA defines fasting as no caloric intake for at least 8 hours. Fasting plasma glucose results between 100 to 125 mg/dL indicate increased risk for diabetes (prediabetes).Fasting plasma glucose results greater than or equal to 126 mg/dL meet the criteria for diagnosis of diabetes. In the absence of unequivocal hyperglycemia, results should be confirmed by repeat testing. In a patient with classic symptoms of hyperglycemia or hyperglycemic crisis, random plasma glucose results greater than or equal to 200 mg/dL meet the criteria for diagnosis of diabetes.Reference: Standards of Medical Care in Diabetes 2016, [place] [employer] Association. Diabetes Care. 2016.39(Suppl 1). Performed By: #### 2 4320-07, ####[facility] LABCLIA [id number] [place] [address] Potassium [Moles/Vol] 4.2 mmol/L Normal 3.7-5.1 [facility] Comment on above: Order Comment: Speci men Type: BLOOD SPECIMENOrdering Facility: Address: [address] [place] [address] Performed By: #### 2 4320-07, ####[facility] LABCLIA [id number] [place] [address] Sodium [Moles/Vol] 141 mmol/L Normal 136-144 [facility] Comment on above: Order Comment: Speci men Type: BLOOD SPECIMENOrdering Facility: Address: [address] [place] [address] Performed By: #### 2 43206-18, ####[facility] LABCLIA [id number] [place] [address] Urea nitrogen [Mass/Vol] 18 mg/dL Normal 9-24 [facility] Comment on above: Order Comment: Speci men Type: BLOOD SPECIMENOrdering Facility: Address: [address] [place] [address] Performed By: #### 2 4321-2, 28957-7 ####[facility] LABCLIA [id number] [place] [address] CBC panel Auto (Bld)on 03-03 Erythrocyte distribution width (RBC) [Ratio] 15.4 % High 11.5-15.0 [facility] Comment on above: Order Comment: Speci men Type: BLOOD SPECIMENOrdering Facility: Address: [address] [place] [address] Performed By: #### 5 8410-2 ####[facility] LABCLIA [id number] [place] [address] Hematocrit (Bld) [Volume fraction] 39.0 % Normal 39.0-51.0 [facility] Comment on above: Order Comment: Speci men Type: BLOOD SPECIMENOrdering Facility: Address: [address] [place] [address] Performed By: #### 5 8410-2 ####[facility] LABCLIA [id number] [place] [address] Hemoglobin (Bld) [Mass/Vol] 12.8 g/dL Low 13.0-17.0 [facility] Comment on above: Order Comment: Speci men Type: BLOOD SPECIMENOrdering Facility: Address: [address] [place] [address] Performed By: #### 5 8410-2 ####[facility] LABCLIA [id number] [place] [address] MCH (RBC) [Entitic mass] 30.7 pg Normal 26.0-34.0 [facility] Comment on above: Order Comment: Speci men Type: BLOOD SPECIMENOrdering Facility: Address: [address] [place] [address] Performed By: #### 5 8410-2 ####[facility] LABCLIA [id number] [place] [address] MCHC (RBC) [Mass/Vol] 32.8 g/dL Normal 30.5-36.0 [facility] Comment on above: Order Comment: Speci men Type: BLOOD SPECIMENOrdering Facility: Address: [address] [place] [address] Performed By: #### 5 8410-2 ####[facility] LABCLIA [id number] [place] [address] MCV (RBC) [Entitic vol] 93.5 fL Normal 80.0-100.0 [facility] Comment on above: Order Comment: Speci men Type: BLOOD SPECIMENOrdering Facility: Address: [address] [place] [address] Performed By: #### 5 8410-2 ####[facility] LABIA [id number] [place] [address] Nucleated RBC (Bld) [#/Vol] 10*3/uL Normal <0.01 [facility] Comment on above: Order Comment: Speci men Type: BLOOD SPECIMENOrdering Facility: Address: [address] [place] [address] Performed By: #### 5 8410-2 ####[facility] LABCLIA [id number] [place] [address] Platelet mean volume (Bld) [Entitic vol] 9.7 fL Normal 9.0-12.7 [facility] Comment on above: Order Comment: Speci men Type: BLOOD SPECIMENOrdering Facility: Address: [address] [place] [address] Performed By: #### 5 8410-2 ####[facility] LABCLIA [id number] [place] [address] Platelets (Bld) [#/Vol] 255 10*3/uL Normal 150-400 [facility] Comment on above: Order Comment: Speci men Type: BLOOD SPECIMENOrdering Facility: Address: [address] [place] [address] Performed By: #### 5 8410-2 ####[facility] LABIA [id number] [place] [address] RBC (Bld) [#/Vol] 4.17 10*6/uL Low 4.20-6.00 [facility] Comment on above: Order Comment: Speci men Type: BLOOD SPECIMENOrdering Facility: Address: [address] [place] [address] Performed By: #### 5 8410-2 ####[facility] LABIA [id number] [place] [address] WBC (Bld) [#/Vol] 7.63 10*3/uL Normal 3.70-11.00 [facility] Comment on above: Order Comment: Speci men Type: BLOOD SPECIMENOrdering Facility: Address: [address] [place] [address] Performed By: #### 5 8410-2 ####[facility] LABIA [id number] [place] [address] CNPNon 03-03-2024 CNPN Normal [facility] Magnesium SerPl-mCncon 03-03 Magnesium [Mass/Vol] 1.9 mg/dL Normal 1.7-2.3 [facility] Comment on above: Order Comment: Speci men Type: BLOOD SPECIMENOrdering Facility: Address: [address] [place] [address] Performed By: #### 2 4321-2, 67255-9 ####[facility] LABCLIA [id number] [place] [address] CNPNon 02-21-2024 CNPN Normal [facility] XR Chest PA and Lateralon IMPRESSION: Interval decrease in size of small right-sided pleural effusion with adjacent atelectasis/consolidations . Transcribed Using Voice Recognition Transcribe Date/Time: Feb 05 2024 12:51P Dictated by: SHAWN TALAVERA MD This examination was interpreted and the report reviewed and electronically signed by: SHAWN TALAVERA MD on Feb 05 2024 12:52PM [facility] * * *Final Report* * * DATE OF EXAM: Feb 04 2024 1:29PM HMX 5291 - XR CHEST 2V FRONTAL/LAT / PROCEDURE REASON: Pleural effusion * * * * Physician Interpretation * * * * RESULT: EXAMINATION: CHEST RADIOGRAPH (2 VIEW FRONTAL & LATERAL) CLINICAL HISTORY: Pleural effusion MQ: XC2_6 EXAM DATE/TIME: 02/04/2024 1:29 PM COMPARISON: Chest radiograph dated 01/06/2024 RESULT: Lines, tubes, and devices: Right-sided pleural catheter remain in place. Lungs and pleura: Interval decrease in size of small right-sided pleural effusion with adjacent atelectases/consolidations . No significant left pleural effusion or pneumothorax. Cardiomediastinal silhouette: Stable cardiomediastinal silhouette. Bones and soft tissues: Degenerative changes are present within the thoracic spine. [facility] RAD[facility] Provider, Migel Hudson - 02/05/2024 * * *Final Report* * * DATE OF EXAM: Feb 04 2024 1:29PM HMX 5291 - XR CHEST 2V FRONTAL/LAT / PROCEDURE REASON: Pleural effusion * * * * Physician Interpretation * * * * RESULT: EXAMINATION: CHEST RADIOGRAPH (2 VIEW FRONTAL & LATERAL) CLINICAL HISTORY: Pleural effusion MQ: XC2_6 EXAM DATE/TIME: 02/04/2024 1:29 PM COMPARISON: Chest radiograph dated 01/06/2024 RESULT: Lines, tubes, and devices: Right-sided pleural catheter remain in place. Lungs and pleura: Interval decrease in size of small right-sided pleural effusion with adjacent atelectases/consolidations . No significant left pleural effusion or pneumothorax. Cardiomediastinal silhouette: Stable cardiomediastinal silhouette. Bones and soft tissues: Degenerative changes are present within the thoracic spine. IMPRESSION IMPRESSION: Interval decrease in size of small right-sided pleural effusion with adjacent atelectasis/consolidations . Transcribed Using Voice Recognition Transcribe Date/Time: Feb 05 2024 12:51P Dictated by: SHAWN TALAVERA MD This examination was interpreted and the report reviewed and electronically signed by: SHAWN TALAVERA MD on Feb 05 2024 12:52PM EST [facility] XR Chest PA and LateralOrder ed By: [facility] Provider on 02-05-2024 [facility] CNOVon 02-04-2024 CNOV Office Visit (THORHL ) -- SAV RAYMUNDO ([id number]) 1950 M Date Time Provider Department 02/04/24 1:30 PM TITA LANDRY During your visit today, we recorded the following information about you: Temperature Pulse Respiration Blood pressure 97.1 degrees 75/minute 16/minute 120/69 Weight Height 90.7 kg 1.829 m Tita Landry APRN.ATTORNEY LAW CLERK 02/05/2024 4:19 PM Signed [facility] [place] DEPARTMENT OF THORACIC SURGERY OUTPATIENT VISIT DATE February 04, 2024 OUTPATIENT VISIT TYPE ESTABLISHED PT NAME: Sav Cantu [facility] NO: [id number] THORACIC SURGEON: Ronaldo Simmons M.D. DATE OF SERVICE: 02/04/2024 PRINCIPAL DX: Pleural Effusion SURGICAL HX 11/20/2023: R VATS pleural biopsy, right mechanic assistant and doxycycline pleurodesis, right Pleurx catheter insertion, right 20Fr chest tube insertion Surgical Pathology 11/20/2023: FINAL DIAGNOSIS A. Right pleura, biopsy: - Chronic pleuritis with mesothelial hyperplasia (see comment). B. Right pleura, biopsy: - Acute organizing and chronic pleuritis (see comment). TN/ 11/22/2023 Diagnosis Comment A. The biopsy contains pleural tissue with chronic inflammation and focal reactive mesothelial hyperplasia. An immunohistochemical stain for BAP 1 shows retained nuclear expression of the mesothelial cells. B. The pleura shows areas with extensive granulation tissue associated with reactive mesenchymal mesothelial proliferation. Immunohistochemical stains were performed to exclude the possibility of mesothelial or vascular neoplasm. The mesothelial proliferation is positive for cytokeratin CAM 5.2, cytokeratin AE1/AE3, WT1, and focally for calretinin and smooth muscle actin. The cytokeratin stains do not show extension of the mesothelial proliferation into deeper adjacent tissues. All cells are negative for claudin-4. ERG highlights the vascular network of thin walled vessels arranged mostly perpendicular to the pleural surface. A BAP 1 stain shows retained nuclear expression. PU 1 highlights numerous histiocytes associated with the reactive proliferation. Drs. Della Subramanian and Zeus Hinton have also reviewed this case and agree that there is no definitive evidence of malignancy. Right pleural fluid cytology: FINAL DIAGNOSIS A - Pleural Cavity, Right, Fluid, Thoracentesis - Right pleural fluid Negative for malignant cells. Acute and chronic inflammation. The following cell blocks were associated with this case: A1 Cell Block, Alcohol Fixed ON FOR VISIT: Post-operative visit HPI: Sav Raymundo is a 73 year old male with a PmHX significant for HTN, hyperlipidemia, gout, GERD. Patient seen 07/2023 for a few months lasting cough. He had a chest CT on 08/15/23 showing moderate R pleural effusion. He had thoracentesis twice on 09/04/23 and 10/01/2023, cytology was negative both times and chemical analysis was consistent with an exudate. The right pleural effusion persists per most recent CT on 10/18/23. He also has a small to moderate pericardial effusion seen on imaging and on ECHO that was done in 09/04/23, otherwise with good cardiac function(pericardial effusion almost completely resolved on last CT). Imaging has also been consistent with small to moderate left pleural effusion that has almost completely resolved on last CT. On 11/20/2023, patient underwent R VATS pleural biopsy, right mechanic assistant and doxycycline pleurodesis, right Pleurx catheter insertion, right 20Fr chest tube insertion. He was hospitalized 12/20/23 for anasarca, possible autoimmune disease, recurrent pleural effusion. Imaging did not reveal any acute findings. Patient was admitted to [facility] and started on lasix drip, improving anasarca and pleural effusion. Pleurx catheter was drained daily with significantly decreasing output [phone]. He was worked up for an autoimmune disease as well. He was discharged on an increased dose of lasix (20mg > 80mg) and started on Plaquenil. PHYSICAL EXAM: VITAL SIGNS: BP 120/69 (BP Site: Left Arm, BP Position: Sitting, BP Cuff Size: Large Adult) Pulse 75 Temp 36.2 ?C (97.1 ?F) (Temporal) Resp 16 Ht 182.9 cm (6') Wt 90.7 kg (199 lb 15.3 oz) SpO2 95% BMI 27.12 kg/m? Room air Incision location: Right Thoracoport sites Incision Assessment: Well approximated and no drainage, swelling, erythema or warmth Drain/Tubes: Pleurex Catheter-dressing C/D/I GENERAL: Well appearing HEENT: normocephalic, midline, anicteric sclera. LUNGS: clear to auscultation, no wheezing or rhonchi HEART: RRR without murmur ABDOMEN: soft, non-tender EXTREMITIES: No clubbing, cyanosis, improving edema MUSCULOSKELETAL: Muscular strength intact. SKIN: turgor normal, no suspicious rashes (more content not included)... Normal [facility] XR CHEST 2V FRONTAL/LATon XR CHEST 2V FRONTAL/LAT * * *Final Report* * * DATE OF EXAM: Feb 04 2024 1:29PM X 5291 - XR CHEST 2V FRONTAL/LAT / PROCEDURE REASON: Pleural effusion * * * * Physician Interpretation * * * * RESULT: EXAMINATION: CHEST RADIOGRAPH (2 VIEW FRONTAL and LATERAL) CLINICAL HISTORY: Pleural effusion MQ: XC2_6 EXAM DATE/TIME: 02/04/2024 1:29 PM COMPARISON: Chest radiograph dated 01/06/2024 RESULT: Lines, tubes, and devices: Right-sided pleural catheter remain in place. Lungs and pleura: Interval decrease in size of small right-sided pleural effusion with adjacent atelectases/consolidations . No significant left pleural effusion or pneumothorax. Cardiomediastinal silhouette: Stable cardiomediastinal silhouette. Bones and soft tissues: Degenerative changes are present within the thoracic spine. IMPRESSION: Interval decrease in size of small right-sided pleural effusion with adjacent atelectasis/consolidations . Transcribed Using Voice Recognition Transcribe Date/Time: Feb 05 2024 12:51P Dictated by: SHAWN TALAVERA MD This examination was interpreted and the report reviewed and electronically signed by: SHAWN TALAVERA MD on Feb 05 2024 12:52PM EST [id number] Normal [facility] XR Chest PA and Lateralon Radiology Study observation (narrative) [facility] Basic metabolic 2000 panelon 01-24-2024 Anion gap [Moles/Vol] 10 mmol/L Normal 8-15 [facility] Comment on above: Order Comment: Speci men Type: BLOOD SPECIMENOrdering Facility: Address: [address] [place] [address] Performed By: #### 2 4321-2 ####[facility] LABCLIA [id number] [place] [address] Calcium [Mass/Vol] 9.7 mg/dL Normal 8.5-10.2 [facility] Comment on above: Order Comment: Speci men Type: BLOOD SPECIMENOrdering Facility: Address: [address] [place] [address] Performed By: #### 2 4321-2 ####[facility] LABCLIA [id number] [place] [address] Chloride [Moles/Vol] 101 mmol/L Normal 98-107 [facility] Comment on above: Order Comment: Speci men Type: BLOOD SPECIMENOrdering Facility: Address: [address] [place] [address] Performed By: #### 2 4321-2 ####[facility] LABCLIA [id number] [place] [address] CO2 [Moles/Vol] 30 mmol/L Normal 22-30 [facility] Comment on above: Order Comment: Speci men Type: BLOOD SPECIMENOrdering Facility: Address: [address] [place] [address] Performed By: #### 2 4321-2 ####[facility] LABCLIA [id number] [place] [address] Creatinine [Mass/Vol] 1.14 mg/dL Normal 0.73-1.22 [facility] Comment on above: Order Comment: Speci men Type: BLOOD SPECIMENOrdering Facility: Address: [address] [place] [address] Performed By: #### 2 4321-2 ####[facility] LABCLIA [id number] [place] [address] Creatinine and Glomerular filtration rate.predicted panel (S/P/Bld) 68 mL/min/1.73m??? Normal >=60 [facility] Comment on above: Order Comment: Speci men Type: BLOOD SPECIMENOrdering Facility: Address: [address] [place] [address] Result Comment: Kristel mated Glomerular Filtration Rate (eGFR) is calculated using the 2020 CKD-EPI creatinine equation. This equation utilizes serum creatinine, sex, and age as parameters. The creatinine assay has traceable calibration to isotope dilution-mass spectrometry. Refer to KDIGO guidelines for clinical interpretation. In patients with unstable renal function, e.g. those with acute kidney injury, the eGFR may not accurately reflect actual GFR. Performed By: #### 2 4321-2 ####[facility] LABCLIA [id number] [place] [address] Glucose [Mass/Vol] 107 mg/dL High 74-99 [facility] Comment on above: Order Comment: Speci men Type: BLOOD SPECIMENOrdering Facility: Address: [address] [id number] Result Comment: The [place] Diabetes [employer] (ADA) provides guidance for cutoff values for fasting glucose and random glucose. The ADA defines fasting as no caloric intake for at least 8 hours. Fasting plasma glucose results between 100 to 125 mg/dL indicate increased risk for diabetes (prediabetes).Fasting plasma glucose results greater than or equal to 126 mg/dL meet the criteria for diagnosis of diabetes. In the absence of unequivocal hyperglycemia, results should be confirmed by repeat testing. In a patient with classic symptoms of hyperglycemia or hyperglycemic crisis, random plasma glucose results greater than or equal to 200 mg/dL meet the criteria for diagnosis of diabetes.Reference: Standards of Medical Care in Diabetes 2016, [place] [employer]. Diabetes Care. 2016.39(Suppl 1). Performed By: #### 2 4321-2 ####[facility] LABCLIA [id number] [place] [address] Potassium [Moles/Vol] 4.8 mmol/L Normal 3.7-5.1 [facility] Comment on above: Order Comment: Speci men Type: BLOOD SPECIMENOrdering Facility: Address: [address] [place] [address] Performed By: #### 2 4321-2 ####[facility] LABIA [id number] [place] [address] Sodium [Moles/Vol] 141 mmol/L Normal 136-144 [facility] Comment on above: Order Comment: Speci men Type: BLOOD SPECIMENOrdering Facility: Address: [address] [place] [address] Performed By: #### 2 4321-2 ####[facility] LABCLIA [id number] [place] [address] Urea nitrogen [Mass/Vol] 30 mg/dL High 9-24 [facility] Comment on above: Order Comment: Speci men Type: BLOOD SPECIMENOrdering Facility: Address: [address] [place] [address] Performed By: #### 2 4321-2 ####[facility] LABIA [id number] [place] [address] CNPNon 01-20-2024 CNPN Normal [facility] CNOVon 01-06-2024 CNOV Office Visit (THORHL ) -- SAV RAYMUNDO ([id number]) 1950 M Date Time Provider Department 01/06/24 2:00 PM RUMA CHRISTINA During your visit today, we recorded the following information about you: Temperature Pulse Respiration Blood pressure 97.2 degrees 80/minute 16/minute 137/73 Weight Height 97.3 kg 1.829 m Ruma Christina PA-C 01/06/2024 2:58 PM Signed [facility] - OUTPATIENT THORACIC SURGERY CLINIC NOTE PT NAME: Sav Raymundo CLINIC NO: [id number] THORACIC SURGEON: Ronaldo Simmons M.D. DATE OF SERVICE: 01/06/2024 PRINCIPAL DX: Pleural Effusion SURGICAL HX 11/20/2023: R VATS pleural biopsy, right mechanic assistant and doxycycline pleurodesis, right Pleurx catheter insertion, right 20Fr chest tube insertion Surgical Pathology 11/20/2023: INAL DIAGNOSIS A - Pleural Cavity, Right, Fluid, Thoracentesis - Right pleural fluid Negative for malignant cells. Acute and chronic inflammation. FINAL DIAGNOSIS A. Right pleura, biopsy: - Chronic pleuritis with mesothelial hyperplasia (see comment). B. Right pleura, biopsy: - Acute organizing and chronic pleuritis (see comment). REASON FOR VISIT: Surgery follow up HPI: Sav Raymundo is a 73 year old male with a PmHX significant for HTN, hyperlipidemia, gout, GERD. Patient seen 07/2023 for a few months lasting cough. He had a chest CT on 08/15/23 showing moderate R pleural effusion. He had thoracentesis twice on 09/04/23 and 10/01/2023, cytology was negative both times and chemical analysis was consistent with an exudate. The right pleural effusion persists per most recent CT on 10/18/23. He also has a small to moderate pericardial effusion seen on imaging and on ECHO that was done in 09/04/23, otherwise with good cardiac function(pericardial effusion almost completely resolved on last CT). Imaging has also been consistent with small to moderate left pleural effusion that has almost completely resolved on last CT. Since last visit 12/20/2023 Sav Raymundo presents to clinic today for follow up visit. He has been doing okay. Recall at last visit patient was having high output from pleurx as well as frequent diarrhea, vomiting, and increased cough. Patient was hospitalized 12/20/23 for anasarca, possible autoimmune disease, recurrent pleural effusion. Imaging did not reveal any acute findings. Patient was admitted to [facility] and started on lasix drip, improving anasarca and pleural effusion. Pleurx catheter was drained daily with significantly decreasing output [phone]. He was worked up for an autoimmune disease as well. He was discharged on an increased dose of lasix (20mg > 80mg) and started on Plaquenil. Today he denies fevers, chills, night sweats. Pain is well controlled. Denies SOB, lightheadedness, dizziness, no chest pain, tightness, or discomfort. No c/o nausea or vomiting. Does endorse a cough that has been present since [place] but worse since surgery. Describes as a dry, barky cough. Sometimes he is coughing so hard that it causes him to throw up. Does note relief when draining his pleurx. Patient notes frustration with not knowing where this fluid is coming from and what is causing his cough. Discussed referral to chronic cough clinic. Patient does have follow up with transportation solutions manager today and social work instructor next week. Will fax over recent medical information to social work instructor. Patient also going on a bus trip in late January. Discussed spacing out drainage before the trip to see if patient could tolerate going a few days without being drained and not getting symptomatic. Will try to schedule follow up SaturdayFebruary 03, day prior to their scheduled vacation. CXR 01/06/2024 PHYSICAL EXAM: VITAL SIGNS: BP 137/73 (BP Site: Left Arm, BP Position: Sitting, BP Cuff Size: Regular Adult) Pulse 80 Temp 36.2 ?C (97.2 ?F) (Temporal) Resp 16 Ht 182.9 cm (6') Wt 97.3 kg (214 lb 6.4 oz) SpO2 96% BMI 29.08 kg/m? Room air General appearance: Well appearing, alert, in no acute distress, well-hydrated, well nourished. Skin: Skin color, texture, turgor normal, no suspicious rashes or lesions Lungs: Lungs clear to auscultation. No wheezing, rhonchi, rales Heart: RRR without murmur, gallop, or rubs. No ectopy Abdomen: Normal abdominal exam, Abdomen soft, non-tender. No masses, organomegaly Extremities: No deformities, edema, skin discoloration, clubbing or cyanosis. Musculoskeletal: No joint swelling, deformity, or tenderness Neuro: Gait normal. Sensation grossly intact. Incision location: Right Thoracoport sites Incision Assessment: Well approximated and no drainage, swelling, erythema or warmth Drain/Tubes: Pleurex Catheter site without erythema or irritation Last 3 drainages: Sunday 12/31: 550cc awilda fluid Tuesday 01/02: 500cc awilda fluid Friday 01/05: 700cc serous fluid IMPRESSION: 73 year old male with pm (more content not included)... Normal [facility] XR CHEST 2V FRONTAL/LATon XR CHEST 2V FRONTAL/LAT * * *Final Report* * * DATE OF EXAM: Jan 06 2024 1:09PM HCX 5291 - XR CHEST 2V FRONTAL/LAT / PROCEDURE REASON: Recurrent 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 * * * * Physician Interpretation * * * * RESULT: EXAMINATION: CHEST RADIOGRAPH (2 VIEW FRONTAL and LATERAL) CLINICAL HISTORY: Recurrent 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 MQ: XC2_6 EXAM DATE/TIME: 01/06/2024 1:09 PM COMPARISON: 12/24/2023 RESULT: Lines, tubes, and devices: Right-sided pleural drainage catheter present with distal tip overlying the right lung base posteriorly.. Lungs and pleura: Interval increase in small right basilar pleural effusion with adjacent atelectasis. No gross edema or pneumothorax. Left hemithorax is clear. Cardiomediastinal silhouette: Stable cardiomediastinal silhouette. Mediastinal and hilar contours are stable when compared to the prior study. Bones and soft tissues: Degenerative changes are present within the thoracic spine. IMPRESSION: Interval increase in small right basilar pleural effusion with adjacent atelectasis. Right-sided pleural drainage catheter present with distal tip overlying the right lung base posteriorly.. Transcribed Using Voice Recognition Transcribe Date/Time: Jan 08 2024 9:09P Dictated by: JUDSON KUMAR MD This examination was interpreted and the report reviewed and electronically signed by: JUDSON KUMAR MD on Jan 08 2024 9:10PM EST [id number] Normal [facility] Basic metabolic 2000 panelon 01-02-2024 Anion gap [Moles/Vol] 5 mmol/L Low 8-15 [facility] Comment on above: Order Comment: Speci men Type: BLOOD SPECIMENOrdering Facility: Address: [address] [place] [address] Performed By: #### 2 4321-2 ####[facility] LABCLIA [id number] [place] [address] Calcium [Mass/Vol] 9.4 mg/dL Normal 8.5-10.2 [facility] Comment on above: Order Comment: Speci men Type: BLOOD SPECIMENOrdering Facility: Address: [address] [place] [address] Performed By: #### 2 4321-2 ####[facility] LABCLIA [id number] [place] [address] Chloride [Moles/Vol] 103 mmol/L Normal 98-107 [facility] Comment on above: Order Comment: Speci men Type: BLOOD SPECIMENOrdering Facility: Address: [address] [place] [address] Performed By: #### 2 4321-2 ####[facility] LABCLIA [id number] [place] [address] CO2 [Moles/Vol] 26 mmol/L Normal 22-30 [facility] Comment on above: Order Comment: Speci men Type: BLOOD SPECIMENOrdering Facility: Address: [address] [place] [address] Performed By: #### 2 4321-2 ####[facility] LABCLIA [id number] [place] [address] Creatinine [Mass/Vol] 1.06 mg/dL Normal 0.73-1.22 [facility] Comment on above: Order Comment: Alexandru campos Type: BLOOD SPECIMENOrdering Facility: Address: [address] [place], [place] [address] Performed By: #### 2 4321-2 ####[facility] LABCLIA [id number] [place] [address] Creatinine and Glomerular filtration rate.predicted panel (S/P/Bld) 75 mL/min/1.73m??? Normal >=60 [facility] Comment on above: Order Comment: Alexandru campos Type: BLOOD SPECIMENOrdering Facility: Address: [address] [place] [address] Result Comment: Kristel mated Glomerular Filtration Rate (eGFR) is calculated using the 2020 CKD-EPI creatinine equation. This equation utilizes serum creatinine, sex, and age as parameters. The creatinine assay has traceable calibration to isotope dilution-mass spectrometry. Refer to KDIGO guidelines for clinical interpretation. In patients with unstable renal function, e.g. those with acute kidney injury, the eGFR may not accurately reflect actual GFR. Performed By: #### 2 4321-2 ####[facility] LABCLIA [id number] [place] [address] Glucose [Mass/Vol] 117 mg/dL High 74-99 [facility] Comment on above: Order Comment: Alexandru campos Type: BLOOD SPECIMENOrdering Facility: Address: [address] [place], [place] [address] Result Comment: The [place] Diabetes Association (ADA) provides guidance for cutoff values for fasting glucose and random glucose. The ADA defines fasting as no caloric intake for at least 8 hours. Fasting plasma glucose results between 100 to 125 mg/dL indicate increased risk for diabetes (prediabetes).Fasting plasma glucose results greater than or equal to 126 mg/dL meet the criteria for diagnosis of diabetes. In the absence of unequivocal hyperglycemia, results should be confirmed by repeat testing. In a patient with classic symptoms of hyperglycemia or hyperglycemic crisis, random plasma glucose results greater than or equal to 200 mg/dL meet the criteria for diagnosis of diabetes.Reference: Standards of Medical Care in Diabetes 2016, [place] [employer]. Diabetes Care. 2016.39(Suppl 1). Performed By: #### 2 4321-2 ####[facility] LABCLIA [id number] [place] [address] Potassium [Moles/Vol] 3.6 mmol/L Low 3.7-5.1 [facility] Comment on above: Order Comment: Speci men Type: BLOOD SPECIMENOrdering Facility: Address: [address] [place] [address] Performed By: #### 2 4321-2 ####[facility] LABCLIA [id number] [place] [address] Sodium [Moles/Vol] 134 mmol/L Low 136-144 [facility] Comment on above: Order Comment: Speci men Type: BLOOD SPECIMENOrdering Facility: Address: [address] [place] [address] Performed By: #### 2 4321-2 ####[facility] LABCLIA [id number] [place] [address] Urea nitrogen [Mass/Vol] 19 mg/dL Normal 9-24 [facility] Comment on above: Order Comment: Speci men Type: BLOOD SPECIMENOrdering Facility: Address: [address] [place] [address] Performed By: #### 2 4321-2 ####[facility] LABCLIA [id number] [place] [address] Basic metabolic 2000 panelon 12-26-2023 Anion gap [Moles/Vol] 14 mmol/L Normal 8-15 [facility] Comment on above: Order Comment: Speci men Type: BLOOD SPECIMEN Ordering Facility: Address: [address] [place] [address] Performed By: #### 2 4321-2 #### [facility] CLIA [id number] [address] [place] [address] [place] Calcium [Mass/Vol] 9.0 mg/dL Normal 8.5-10.2 [facility] Comment on above: Order Comment: Speci men Type: BLOOD SPECIMEN Ordering Facility: Address: [address] [place] [address] Performed By: #### 2 4321-2 #### [facility] CLIA [id number] [address] [place] [address] [place] Chloride [Moles/Vol] 101 mmol/L Normal 98-107 [facility] Comment on above: Order Comment: Speci men Type: BLOOD SPECIMEN Ordering Facility: Address: [address] [place] [address] Performed By: #### 2 4321-2 #### [facility] CLIA [id number] [address] [place] [address] [place] CO2 [Moles/Vol] 23 mmol/L Normal 22-30 [facility] Comment on above: Order Comment: Speci men Type: BLOOD SPECIMEN Ordering Facility: Address: [address] [place] [address] Performed By: #### 2 4321-2 #### [facility] CLIA [id number] [address] [place] [address] [place] Creatinine [Mass/Vol] 0.96 mg/dL Normal 0.73-1.22 [facility] Comment on above: Order Comment: Speci men Type: BLOOD SPECIMEN Ordering Facility: Address: [address] [place] [address] Performed By: #### 2 4321-2 #### [facility] CLIA [id number] [address] [place] [address] [place] Creatinine and Glomerular filtration rate.predicted panel (S/P/Bld) 84 mL/min/1.73m??? Normal >=60 [facility] Comment on above: Order Comment: Speci men Type: BLOOD SPECIMEN Ordering Facility: Address: [address] [place] [address] Result Comment: Kristel mated Glomerular Filtration Rate (eGFR) is calculated using the 2020 CKD-EPI creatinine equation. This equation utilizes serum creatinine, sex, and age as parameters. The creatinine assay has traceable calibration to isotope dilution-mass spectrometry. Refer to KDIGO guidelines for clinical interpretation. In patients with unstable renal function, e.g. those with acute kidney injury, the eGFR may not accurately reflect actual GFR. Performed By: #### 2 4321-2 #### [facility] CLIA [id number] [address] [place] [address] [place] Glucose [Mass/Vol] 152 mg/dL High 74-99 [facility] Comment on above: Order Comment: Alexandru campos Type: BLOOD SPECIMEN Ordering Facility: Address: [address] [place] [address] Result Comment: The [place] Diabetes Association (ADA) provides guidance for cutoff values for fasting glucose and random glucose. The ADA defines fasting as no caloric intake for at least 8 hours. Fasting plasma glucose results between 100 to 125 mg/dL indicate increased risk for diabetes (prediabetes). Fasting plasma glucose results greater than or equal to 126 mg/dL meet the criteria for diagnosis of diabetes. In the absence of unequivocal hyperglycemia, results should be confirmed by repeat testing. In a patient with classic symptoms of hyperglycemia or hyperglycemic crisis, random plasma glucose results greater than or equal to 200 mg/dL meet the criteria for diagnosis of diabetes. Reference: Standards of Medical Care in Diabetes 2016, [place] [employer]. Diabetes Care. 2016.39(Suppl 1). Performed By: #### 2 4321-2 #### [facility] CLIA [id number] [address] [place] [address] [place] Potassium [Moles/Vol] 4.1 mmol/L Normal 3.7-5.1 [facility] Comment on above: Order Comment: Alexandru campos Type: BLOOD SPECIMEN Ordering Facility: Address: [address] [place] [address] Performed By: #### 2 4321-2 #### [facility] CLIA [id number] [address] [place] [address] [place] Sodium [Moles/Vol] 138 mmol/L Normal 136-144 [facility] Comment on above: Order Comment: Speci men Type: BLOOD SPECIMEN Ordering Facility: Address: [address] [place] [address] Performed By: #### 2 4321-2 #### [facility] [facility] CLIA [id number] [address] [place] [address] [place] Urea nitrogen [Mass/Vol] 19 mg/dL Normal 9-24 [facility] Comment on above: Order Comment: Speci men Type: BLOOD SPECIMEN Ordering Facility: Address: [address] [place] [address] Performed By: #### 2 4321-2 #### [facility] CLIA [id number] [address] [place] [address] [place] CBC panel Auto (Bld)on 12-25 Erythrocyte distribution width (RBC) [Ratio] 14.8 % Normal 11.5-15.0 [facility] Comment on above: Order Comment: Speci men Type: BLOOD SPECIMEN Ordering Facility: Address: [address] [place] [address] Performed By: #### 5 8410-2 #### [facility] CLIA [id number] [address] [place] [address] [place] Hematocrit (Bld) [Volume fraction] 39.2 % Normal 39.0-51.0 [facility] Comment on above: Order Comment: Speci men Type: BLOOD SPECIMEN Ordering Facility: Address: [address] [place] [address] Performed By: #### 5 8410-2 #### [facility] CLIA [id number] [address] [place] [address] [place] Hemoglobin (Bld) [Mass/Vol] 12.5 g/dL Low 13.0-17.0 [facility] Comment on above: Order Comment: Speci men Type: BLOOD SPECIMEN Ordering Facility: Address: [address] [place] [address] Performed By: #### 5 8410-2 #### [facility] CLIA [id number] [address] [place] [address] [place] MCH (RBC) [Entitic mass] 29.6 pg Normal 26.0-34.0 [facility] Comment on above: Order Comment: Speci men Type: BLOOD SPECIMEN Ordering Facility: Address: [address] [place] [address] Performed By: #### 5 8410-2 #### [facility] CLIA [id number] [address] [place] [address] [place] MCHC (RBC) [Mass/Vol] 31.9 g/dL Normal 30.5-36.0 [facility] Comment on above: Order Comment: Speci men Type: BLOOD SPECIMEN Ordering Facility: Address: [address] [place] [address] Performed By: #### 5 8410-2 #### [facility] CLIA [id number] [address] [place] [address] [place] MCV (RBC) [Entitic vol] 92.9 fL Normal 80.0-100.0 [facility] Comment on above: Order Comment: Speci men Type: BLOOD SPECIMEN Ordering Facility: Address: [address] [place] [address] Performed By: #### 5 8410-2 #### [facility] CLIA [id number] [address] [place] [address] [place] Nucleated RBC (Bld) [#/Vol] 10*3/uL Normal <0.01 [facility] Comment on above: Order Comment: Speci men Type: BLOOD SPECIMEN Ordering Facility: Address: [address] [place] [address] Performed By: #### 5 8410-2 #### [facility] CLIA [id number] [address] [place] [address] [place] Platelet mean volume (Bld) [Entitic vol] 10.3 fL Normal 9.0-12.7 [facility] Comment on above: Order Comment: Speci men Type: BLOOD SPECIMEN Ordering Facility: Address: [address] [place] [address] Performed By: #### 5 8410-2 #### [facility] CLIA [id number] [address] [place] [address] [place] Platelets (Bld) [#/Vol] 218 10*3/uL Normal 150-400 [facility] Comment on above: Order Comment: Alexandru campos Type: BLOOD SPECIMEN Ordering Facility: Address: [address] [place] [address] Performed By: #### 5 8410-2 #### [facility] CLIA [id number] [address] [place] [address] [place] RBC (Bld) [#/Vol] 4.22 10*6/uL Normal 4.20-6.00 [facility] Comment on above: Order Comment: Antonellai men Type: BLOOD SPECIMEN Ordering Facility: Address: [address] [place] [address] Performed By: #### 5 8410-2 #### [facility] CLIA [id number] [address] [place] [address] [place] WBC (Bld) [#/Vol] 5.29 10*3/uL Normal 3.70-11.00 [facility] Comment on above: Order Comment: Antonellai beth Type: BLOOD SPECIMEN Ordering Facility: Address: [address] [place] [address] Performed By: #### 5 8410-2 #### [facility] CLIA [id number] [address] [place] [address] [place] CNDSon 12-26-2023 CNDS HNO ID: [id number] Author: JOSE ANTONIO MEYERS MD Service: Family Practice Author Type: Physician Type: Discharge Summary Filed: 12/26/2023 16:33 Note Text: DISCHARGE SUMMARY PATIENT NAME: Sav Raymundo Code Status: Full Code Highest Readmission Risk Score: 16 The 30 day readmissions risk score is derived from an internally validated risk model which evaluates patient level characteristics, utilization history, medication orders and lab results up until the day of discharge. Patients with a score of 40 or above are considered highest risk for readmission. Specific patient level drivers will be listed at the bottom of the summary. Admission Information Admission Information ADMIT DATE: 12/20/2023 DISCHARGE DATE: 12/26/2023 MY DOCTORS AND MEDICAL TEAM: My Main Hospital Doctor: Jose Antonio Meyers MD Primary Care Provider: Yuli Mariscal DO My Medical Team Members: Treatment Team: Attending Provider: Jose Antonio Meyers MD Consulting: Yehuda Dial MD MY CONDITION AT DISCHARGE: Good REASON I WAS IN THE HOSPITAL: Anasarca of unknown etiology. Possible autoimmune disease. Recurrent pleural effusion. Hypokalemia. Hypomagnesemia. Allergic rhinitis. Hypertension. Gout. SUMMARY OF WHAT HAPPENED WHILE I WAS IN THE HOSPITAL: This is a 73 year old male with a past medical history significant for hypertension, GERD, osteoarthritis, gout, chronic pleural effusion since July 2023 , status post multiple thoracocentesis and VATS procedure on the right with biopsy,pleurodesis and Pleurx catheter placement on 11/20/2023 who presents with increased shortness of breath and increased pleural effusion. Was referred to the hospital by cardiothoracic surgeon Dr. Urias. Pleural effusion is an exudate negative for malignant cells and pleural biopsy negative for malignancy. While in the emergency room the entire workup did not reveal any acute findings including chest x-ray as well as CT abdomen pelvis showed no acute intra-abdominal pathology and small volume abdominal pelvic ascites. There is subcu edema in the abdominal wall. Patient admitted to regular nursing floor for further management and further workup. Started on Lasix drip at 10 mg/hour for 3 days with a good response. Pleural effusion as well as entire anasarca have improved, and he felt better afterwards and lost weight. CRP and ESR came back elevated however GREY and rheumatoid factor were negative. He was switched to Lasix 80 mg p.o. daily and then 80 mg p.o. every morning with 40 mg p.o. every afternoon. We have been waiting for rheumatology input and finally today the consult was performed by Dr. Dial who started him on Plaquenil 200 mg p.o. daily, singular 10 mg p.o. daily. An autoimmune disease was suspected. Right upper quadrant ultrasound did not reveal any findings. Also he was seen by cardiothoracic surgeon. PleurX catheter was drained daily with significantly decreased amount [phone] mL. The electrolytes have been replaced daily. He also was started on calcium, magnesium supplementations. Today he is cleared for discharge in satisfactory condition. All questions were answered to his satisfaction. He will be following with Dr. Dial on 01/05 and with me in 2 weeks OTHER PROBLEMS/DIAGNOSIS: Principal Problem (Resolved): Anasarca Active Problems: Primary hypertension Recurrent 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 History of pericarditis Elevated sedimentation rate Elevated C-reactive protein (CRP) Resolved Problems: Raynaud's phenomenon without gangrene OPERATIONS PERFORMED WHILE IN THE HOSPITAL: None IMPORTANT TEST/PROCEDURES: No procedures performed TEST RESULTS NOT AVAILABLE AT THIS TIME: No pending results Discharge Disposition Discharge Disposition: Home With Self Care Activity When You Leave the Hospital Resume pre-hospital activity Diet Instructions Other: Low-salt diet Resume your pre-hospital diet Follow Up Appointments Follow-Up Appointment - Dr. Jose Antonio Meyers When: In 3 weeks Patient/Parents to call for appointment?: Yes Jose Antonio Meyers MD [phone] [id number] [place] [address] PCP Requested Referral Additional Provider to Provider Information: No notes on file Treatment Team: Attending Provider: Jose Antonio Meyers MD Consulting: Yehuda Dial MD Transitions of Care Critical Issues: LAB MONITORING NEEDED: BMP,Magnesium on 01/02/2024 SPECIALIST FOLLOW-UP: Dr Dial on 01/06/2024 LABS AND PROCEDURES PENDING AT DISCHARGE: No pending results. FOLLOW-UP APPOINTMENTS ALREADY SCHEDULED WITH A [facility] PROVIDER: Future Appointments Date Time Provider Department Center 01/06/2024 1:15 PM XR [facility] 01/06/2024 2:00 PM Ruma Christina PA-C [facility] Allergen Reactions Tramadol Mental Status Change DISCHARGE MEDICATION: Medication List START maryjane (more content not included)... Normal [facility] NURSING PROGon 12-26-2023 NURSING PROG HNO ID: [id number] Author: ROJAS CLINE RN Service: Nursing Author Type: Registered Nurse Type: Nursing Progress Note Filed: 12/26/2023 18:03 Note Text: Patient given discharge paperwork. All question and concerns addressed. Patient transport home via family transport [facility] XR SINUS 3V PA/DAN/LATon 12-26-2023 XR SINUS 3V PA/DAN/LAT * * *Final Report* * * DATE OF EXAM: Dec 26 2023 3:13PM HCX 5602 - XR SINUS 3V PA/DAN/LAT / PROCEDURE REASON: Sinusitis * * * * Physician Interpretation * * * * RESULT: EXAMINATION: XR SINUS 3V PA/DAN/LAT CLINICAL INFORMATION: Sinusitis TECHNIQUE: Sinus series, 3 views COMPARISON: None RESULT: See impression. IMPRESSION: Paranasal sinuses appear grossly clear and without evidence of air-fluid level. No acute facial bone fracture identified within the constraints of this exam. Note that radiographs are relatively insensitive in the evaluation of facial bone fractures and sinuses. If clinical suspicion persists, CT is recommended for further evaluation at the discretion of the ordering clinician. Transcribed Using Voice Recognition Transcribe Date/Time: Dec 27 2023 8:18A Dictated by: MEGAN ORTIZ DO This examination was interpreted and the report reviewed and electronically signed by: MEGAN ORTIZ DO on Dec 27 2023 8:21AM EST [id number] Normal [facility] Basic metabolic 2000 panelon 12-25-2023 Anion gap [Moles/Vol] 12 mmol/L Normal 8-15 [facility] Comment on above: Order Comment: Alexandru campos Type: BLOOD SPECIMEN Ordering Facility: Address: [address] [place] [address] Performed By: #### M PO #### [facility] CLIA [id number] [address] [place] [address] Calcium [Mass/Vol] 9.0 mg/dL Normal 8.5-10.2 [facility] Comment on above: Order Comment: Alexandru campos Type: BLOOD SPECIMEN Ordering Facility: Address: [address] [place] [address] Performed By: #### M PO #### [facility] CLIA [id number] [address] [place] [address] Chloride [Moles/Vol] 95 mmol/L Low 98-107 [facility] Comment on above: Order Comment: Speci men Type: BLOOD SPECIMEN Ordering Facility: Address: [address] [place] [address] Performed By: #### M PO #### [facility] CLIA [id number] [address] [place] [address] CO2 [Moles/Vol] 27 mmol/L Normal 22-30 [facility] Comment on above: Order Comment: Antonellai men Type: BLOOD SPECIMEN Ordering Facility: Address: [address] [place] [address] Performed By: #### M PO #### [facility] CLIA [id number] [address] [place], [place] [address] Creatinine [Mass/Vol] 1.07 mg/dL Normal 0.73-1.22 [facility] Comment on above: Order Comment: Antonellai beth Type: BLOOD SPECIMEN Ordering Facility: Address: [address] [place] [address] Performed By: #### M PO #### [facility] CLIA [id number] [address] [place], [place] [address] Creatinine and Glomerular filtration rate.predicted panel (S/P/Bld) 74 mL/min/1.73m??? Normal >=60 [facility] Comment on above: Order Comment: Alexandru campos Type: BLOOD SPECIMEN Ordering Facility: Address: [address] [place] [address] Result Comment: [facility] Glomerular Filtration Rate (eGFR) is calculated using the 2020 CKD-EPI creatinine equation. This equation utilizes serum creatinine, sex, and age as parameters. The creatinine assay has traceable calibration to isotope dilution-mass spectrometry. Refer to KDIGO guidelines for clinical interpretation. In patients with unstable renal function, e.g. those with acute kidney injury, the eGFR may not accurately reflect actual GFR. Performed By: #### M PO #### [facility] CLIA [id number] [address] [place] [address] Glucose [Mass/Vol] 108 mg/dL High 74-99 [facility] Comment on above: Order Comment: Antonellai men Type: BLOOD SPECIMEN Ordering Facility: Address: [address] [place] [address] Result Comment: The [place] Diabetes Association (ADA) provides guidance for cutoff values for fasting glucose and random glucose. The ADA defines fasting as no caloric intake for at least 8 hours. Fasting plasma glucose results between 100 to 125 mg/dL indicate increased risk for diabetes (prediabetes). Fasting plasma glucose results greater than or equal to 126 mg/dL meet the criteria for diagnosis of diabetes. In the absence of unequivocal hyperglycemia, results should be confirmed by repeat testing. In a patient with classic symptoms of hyperglycemia or hyperglycemic crisis, random plasma glucose results greater than or equal to 200 mg/dL meet the criteria for diagnosis of diabetes. Reference: Standards of Medical Care in Diabetes 2016, [place] Diabetes Association. Diabetes Care. 2016.39(Suppl 1). Performed By: #### M PO #### [facility] CLIA [id number] [address] [place] [address] Potassium [Moles/Vol] 3.7 mmol/L Normal 3.7-5.1 [facility] Comment on above: Order Comment: Speci men Type: BLOOD SPECIMEN Ordering Facility: Address: [address] [place] [address] Performed By: #### M PO #### [facility] CLIA [id number] [address] [place] [address] Sodium [Moles/Vol] 134 mmol/L Low 136-144 [facility] Comment on above: Order Comment: Antonellai men Type: BLOOD SPECIMEN Ordering Facility: Address: [address] [place] [address] Performed By: #### M PO #### [facility] CLIA [id number] [address] [place] [address] Urea nitrogen [Mass/Vol] 24 mg/dL Normal 9-24 [facility] Comment on above: Order Comment: Antonellai men Type: BLOOD SPECIMEN Ordering Facility: Address: [address] [place] [address] Performed By: #### M PO #### [facility] CLIA [id number] [address] [place] [address] CONSULTon 12-25-2023 CONSULT HNO ID: [id number] Author: YEHUDA DIAL MD Service: Rheumatology Author Type: Physician Type: Consults Filed: 12/25/2023 11:40 Note Text: CONSULTATION: RHEUMATOLOGY SERVICE SERVICE DATE: 12/25/2023 SERVICE TIME: 10:55 AM REASON FOR CONSULT: possible vasculitis REQUESTING PHYSICIAN: Jose Antonio Meyers MD PRIMARY CARE PHYSICIAN: Yuli Mariscal, DO ASSESSMENT Raynaud's phenomenon of the fingers on 1 occasion recently Elevated C reactive protein Osteoarthritis of the hands Recurrent right pleural effusion and pericarditis PLAN Will review laboratory studies Amyloid heart scan Tentative discharge tomorrow Hydroxychloroquine therapy is a consideration SUBJECTIVE Mr. Raymundo is a 73 year old male who presents for recurrent right pleural effusions. Pericarditis occurred initially according to his history. At this time Mr. Raymundo feels relatively well. Both he and his are interested in determining if there is an underlying condition. The subject is admitted to [facility] for anasarca. In the past few weeks he noted that his fingers turn blue on exposure to cold. He did have an episode of epistaxis. However, there was no rash, deep vein thrombosis ,hair loss, oral ulcers, joint pains or sinusitis. The family history is negative for connective tissue disease and autoimmune disease. PAST MEDICAL HISTORY: PAST MEDICAL HISTORY Diagnosis Date GERD (gastroesophageal reflux disease) History of basal cell cancer left shoulder Mixed hyperlipidemia Osteoarthritis of multiple joints Pleural effusion, right s/p Thoracentesis 10/01/23 = 520 cc, 625 cc PAST SURGICAL HISTORY: PAST SURGICAL HISTORY Procedure Laterality Date ANESTH OPEN/SURG ARTHRS TOTAL KNEE ARTHROPLASTY Left 08/23/2014 ARTHROSCOPY KNEE DIAGNOSTIC W/WO SYNOVIAL BX SPX Left 2010 ORTHOPEDIC SURGERY HX Right Hand PAST SURGICAL HISTORY OF Left 11/2014 Shoulder -BASAL CELL CARCINOMA EXCISION TOTAL KNEE REPLACEMENT Right 06/25/2016 FAMILY HISTORY: FAMILY HISTORY Problem Relation Age of Onset Heart Father SOCIAL HISTORY: Social History Tobacco Use Smoking status: Never Smokeless tobacco: Never MEDICATIONS: Prior to Admission Medications: furosemide (LASIX) 20 mg tablet, Take 1 tablet by mouth once daily for 5 days. (Patient not taking: Reported on 12/20/2023), Disp: 5 tablet, Rfl: 0, Not Taking acetaminophen (TYLENOL) 500 mg tablet, Take 2 tablets by mouth every 6 hours., Disp: , Rfl: losartan (COZAAR) 25 mg tablet, Take 1 tablet by mouth once daily. Patient should start on December 23, 2023., Disp: , Rfl: metoprolol tartrate, short acting, (LOPRESSOR) 25 mg tablet, Take 1 tablet by mouth every 12 hours. Metoprolol was prescribed to prevent atrial fibrillation after thoracic surgery. Stop this medication after 30 days. (Patient not taking: Reported on 12/20/2023), Disp: 60 tablet, Rfl: 0, Not Taking Nebulizer and Compressor For Neb (INNOSPIRE ESSENCE), 1 Each four times daily., Disp: 1 Each, Rfl: 0 ipratropium-albuterol (DUONEB) 0.5 mg-3 mg(2.5 mg base)/3 mL nebu, Inhale 3 mL as instructed every 6 hours as needed for wheezing/shortness of breath., Disp: 360 mL, Rfl: 0 allopurinol (ZYLOPRIM) 300 mg tablet, Take 300 mg by mouth once daily., Disp: , Rfl: atorvastatin (LIPITOR) 10 mg tablet, Take 1 tablet by mouth once daily., Disp: , Rfl: omeprazole (PRILOSEC) 20 mg capsule, Take 20 mg by mouth once daily., Disp: , Rfl: Current Facility-Administered Medications Medication Dose Route Frequency atorvastatin 10 mg tab(s) (LIPITOR) 10 mg ORAL DAILY allopurinol 300 mg tab(s) (ZYLOPRIM) 300 mg ORAL DAILY NaCl 0.9% iv flush bag 20 mL INTRAVENOUS PRN ondansetron 4 mg tab(s) (ZOFRAN) 4 mg ORAL q 6 H PRN Or ondansetron (PF) 4 mg injection (ZOFRAN) 4 mg INTRAVENOUS q 6 H PRN acetaminophen 650 mg tab(s) (TYLENOL) 650 mg ORAL q [address] 20 mg tab(s) (PROTONIX) 20 mg ORAL DAILY (6 AM) melatonin 6 mg tab(s) 6 mg ORAL AT BEDTIME PRN potassium chloride ER 20 mEq tab(s) (KLOR-CON) 20 mEq ORAL DAILY magnesium oxide 400 mg tab(s) (MAG-OX) 400 mg ORAL BID calcium carbonate 1,250 mg tab(s) (OS-ELIZABETH 500) 1,250 mg ORAL BID furosemide 80 mg tab(s) (LASIX) 80 mg ORAL DAILY CURRENT ALLERGIES: Allergies As of Date: 12/20/2023 Allergen Noted Reaction TRAMADOL 12/15/2020 Mental Status Change Fully Assessed 12/20/2023 COMPLETE REVIEW OF SYSTEMS: REVIEW OF SYSTEMS GENERAL: No weight loss or fevers SKIN: No psoriasis HEENT: No headache or sinus drainage NECK: Negative for lumps RESPIRATORY: No cough or dyspnea CARDIOVASCULAR: No chest pain, palpitations or stroke-like symptoms. GI: No change in bowel habit. : No dysuria or incontinence HEMATOLOGY/LYMPHOLOGY: No prolonged bleeding or bruising ENDOCRINE: No cold or heat intolerance or goiter NEURO: No headaches or syncope PSYCH: No anxiety or depression. ALLERGIC: Negative for seasonal allergi (more content not included)... Normal [facility] CRP SerPl-mCncon 12-25-2023 CRP [Mass/Vol] 1.1 mg/dL High <0.9 [facility] Comment on above: Order Comment: Alexandru campos Type: BLOOD SPECIMEN Ordering Facility: Address: [address] [place] [address] Performed By: #### M PO #### [facility] CLIA [id number] [address] [place] [address] [place] [address] ESR Westergren method (Bld) [Velocity]on 12-25-2023 ESR (Bld) [Velocity] 28 mm/h High 0-15 [facility] Comment on above: Order Comment: Alexandru campos Type: BLOOD SPECIMEN Ordering Facility: Address: [address] [place] [address] Performed By: #### 1 1572-5 #### [facility] CLIA [id number] [address] [place] [address] [place] [address] [place] IMMUNOFIXATION SCREEN, SERUM on 12-25-2023 MPA RESULT No M protein is identified. Normal No M protein is identified. [facility] Comment on above: Order Comment: Alexandru campos Type: BLOOD SPECIMENOrdering Facility: Address: [address] [place] [address] Performed By: #### I FES ####[facility] [id number] [address] OF [place] STAFF REVIEW (MPA) Reviewed by Dr. Elzbieta Farley MD [facility] Comment on above: Order Comment: Alexandru beth Type: BLOOD SPECIMENOrdering Facility: Address: [address] [place] [address] Performed By: #### I [facility] ####[facility] [id number] [address] OF [facility] MYELOPEROXIDASEon 12-25-2023 MYELOPEROXIDASE 328 pmol/L Normal <470 [facility] Comment on above: Order Comment: Alexandru campos Type: BLOOD SPECIMEN Ordering Facility: Address: [address] [place] [address] Result Comment: Base d on a high risk sub-population (N=[id number]) defined as ambulatory stable patients without acute coronary syndrome who underwent elective diagnostic coronary angiography (1) and a reference range study of apparently healthy donors, we have defined the following cut-offs for MPO: A cut-off of <470 pmol/L defines an 'apparently healthy' population at optimal relative risk for a cardiovascular event, 470-539 pmol/L defines a population at moderate relative risk for a cardiovascular event (2-fold increased risk of MACE at 3 years), and > = 540 pmol/L defines a population with a high relative risk for a cardiovascular event. (Reference: 1. Arnold et al. Am J Cardiol. 2013; 111:465-470 and personal communication with Arnold bonilla al). This test was developed and its analytical performance characteristics have been determined by [facility]. It has not been cleared or approved by the U.S. Food and Drug Administration. This assay has been validated pursuant to the CLIA regulations and is used for clinical purposes. Received Date: [id number] Performed By: #### M #### [facility] CLIA [id number] [address] [id number] NM CARDIAC AMYLOID SPECT/certified registered nurse practitioner n 12-25-2023 NM CARDIAC AMYLOID SPECT/CT * * *Final Report* * * DATE OF EXAM: Dec 25 2023 3:56PM [facility] 0847 - NM CARDIAC AMYLOID SPECT/CT / PROCEDURE REASON: Cardiac amyloidosis suspected, further testing * * * * Physician Interpretation * * * * RESULT: NM CTAC Report: [facility] Date of service: 12/25/2023 3:18:39 PM CTAC interpreting physician: Nolberto Barillas MD PATIENT: Name: SAV RAYMUNDO Age: 73 years Gender: M 1. Incidental Findings from limited non-diagnostic CTAC: - Coronary calcifications visualized. 2. Small right and trace left pleural effusions. Right lateral approach proximal catheter in situ. Nonspecific small bilateral airspace opacities. Calcified coronary and aortic atherosclerosis. Trace pericardial fluid. Degenerative changes. * * * Final * * * Patient: Name: SAV RAYMUNDO Age: 73 years Gender: M CONCLUSIONS: 1. Not Consistent with TTR amyloidosis 2. Intense uptake at the right seventh lateral rib, likely secondary to underlying fracture, bland versus pathologic. Curvilinear uptake in the right ninth posterolateral rib with underlying subtle sclerosis; further evaluation to exclude metastatic disease, as clinically indicated. * Please note that a negative or mildly positive study does not exclude AL amyloid. In addition, equivocal results could represent AL amyloid or early ATTR. We suggest concomitant workup of AL amyloid with laboratory testing and pathologic assessment as appropriate. Nuclear Med Report: [id number] PLANAR and SPECT: Myocardial imaging of the chest with CT attenuation correction was performed at 3 hours post IV injection of Tc-99m Pyrophosphate. See administered doses below. 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 CT Dose Reduction Employed: Yes. Exam Type: Rest Study Date: 12/25/2023 Radiopharm: 99m Technetium-HDP Dosage(mCi): 24 Injection Time: 11:00:00 AM Atten Correction: performed Time Interval: 3.5 hours Image Quality The overall study imaging quality was deemed to be good. CARDIAC FINDINGS: PLANAR: Visual Comparison to Bone: Grade 1 = Uptake less than rib uptake (equivocal-may be consistent with AL or ATTR) SPECT: Uptake Pattern: Persisent Blood Pool NON CARDIAC FINDINGS: Intense uptake at the right seventh lateral rib, likely secondary to underlying fracture, bland versus pathologic. Curvilinear uptake in the right ninth posterolateral rib with underlying subtle sclerosis; further evaluation to exclude metastatic disease, as clinically indicated. Summary: Not Consistent with TTR amyloidosis * Please note that a negative or mildly positive study does not exclude AL amyloid. In addition, equivocal results could represent AL amyloid or early ATTR. We suggest concomitant workup of AL amyloid with laboratory testing and pathologic assessment as appropriate. * * * Final * * * RP Transcribed Using Voice Recognition Transcribe Date/Time: Dec 25 2023 3:18P Dictated by: NOLBERTO BARILLAS MD This examination was interpreted and the report reviewed and electronically signed by: NOLBERTO BARILLAS MD on Dec 25 2023 4:19PM EST [id number] Normal [facility] PROTEIN ELECTROPHORESIS SERU M (P)on 12-25-2023 Albumin [Mass/Vol] 3.52 g/dL Normal 3.43-5.41 [facility] Comment on above: Order Comment: Alexandru campos Type: BLOOD SPECIMEN Ordering Facility: Address: [address] [place] [address] Performed By: #### L [id number] #### [facility] CLIA [id number] [address] [place], [place] [address] [place] [address] [place] Alpha 1 globulin Elph [Mass/Vol] 0.34 g/dL Normal 0.18-0.43 [facility] Comment on above: Order Comment: Alexandru campos Type: BLOOD SPECIMEN Ordering Facility: Address: [address] [place] [address] Performed By: #### L [id number] #### [facility] CLIA [id number] [address] [place] [address] [place] Alpha 2 globulin Elph [Mass/Vol] 0.86 g/dL Normal 0.42-0.98 [facility] Comment on above: Order Comment: Speci men Type: BLOOD SPECIMEN Ordering Facility: Address: [address] [place] [address] Performed By: #### L [id number] #### [facility] CLIA [id number] [address] [place] [address] [place] Beta globulin Elph [Mass/Vol] 0.91 g/dL Normal 0.61-1.17 [facility] Comment on above: Order Comment: Speci men Type: BLOOD SPECIMEN Ordering Facility: Address: [address] [place] [address] Performed By: #### L [id number] #### [facility] CLIA [id number] [address] [place] [address] [place] Gamma globulin Elph [Mass/Vol] 0.66 g/dL Normal 0.53-1.51 [facility] Comment on above: Order Comment: Speci men Type: BLOOD SPECIMEN Ordering Facility: Address: [address] [place] [address] Performed By: #### L [id number] #### [facility] CLIA [id number] [address] [place] [address] [place] M-PROTEIN LOCATION Normal [facility] Comment on above: Order Comment: Speci men Type: BLOOD SPECIMEN Ordering Facility: Address: [address] [place] [address] Result Comment: Not Applicable. Performed By: #### L [id number] #### [facility] CLIA [id number] [address] [place] [address] [place] Protein Fractions [Interp] No definitive M protein is identified on protein electrophoresis. Normal No definitive M protein is identified on protein electrophor esis. [facility] Comment on above: Order Comment: Speci men Type: BLOOD SPECIMEN Ordering Facility: Address: [address] [place] [address] Performed By: #### L [id number] #### [facility] CLIA [id number] [address] [place] [address] [place] Protein.monoclonal Elph [Mass/Vol] 0.00 g/dL Normal <=0.00 [facility] Comment on above: Order Comment: Speci men Type: BLOOD SPECIMEN Ordering Facility: Address: [address] [place] [address] Performed By: #### L [id number] #### [facility] CLIA [id number] [address] [place] [address] [place] SPE STAFF REVIEW Reviewed by Dr. Elzbieta Farley MD [facility] Comment on above: Order Comment: Speci men Type: BLOOD SPECIMEN Ordering Facility: Address: [address] [place] [address] Performed By: #### L [id number] #### [facility] CLIA [id number] [address] [place] [address] [place] Prot SerPl-mCncon 12-25-2023 Protein [Mass/Vol] 6.3 g/dL Normal 6.3-8.0 [facility] Comment on above: Order Comment: Speci men Type: BLOOD SPECIMEN Ordering Facility: Address: [address] [place] [address] Performed By: #### 1 988-5, 62014-1 #### [facility] CLIA [id number] [address] [place] [address] [place] TSH SerPl-aCncon 12-25-2023 TSH Qn 2.300 m[IU]/L Normal 0.270-4.200 [facility] Comment on above: Order Comment: Speci men Type: BLOOD SPECIMEN Ordering Facility: Address: [address] [place] [address] Performed By: #### 1 988-5, 85308-6 #### [facility] CLIA [id number] [address] [place] [address] [place] Basic metabolic 2000 panelon 12-24-2023 Anion gap [Moles/Vol] 12 mmol/L Normal 8-15 [facility] Comment on above: Order Comment: Speci men Type: BLOOD SPECIMEN Ordering Facility: Address: [address] [place] [id number] Performed By: #### M PO #### [facility] CLIA [id number] [address] [place] [address] Calcium [Mass/Vol] 9.5 mg/dL Normal 8.5-10.2 [facility] Comment on above: Order Comment: Speci men Type: BLOOD SPECIMEN Ordering Facility: Address: [address] [place] [address] Performed By: #### M PO #### [facility] CLIA [id number] [address] [place] [address] Chloride [Moles/Vol] 94 mmol/L Low 98-107 [facility] Comment on above: Order Comment: Speci men Type: BLOOD SPECIMEN Ordering Facility: Address: [address] [place] [address] Performed By: #### M PO #### [facility] CLIA [id number] [address] [place] [address] CO2 [Moles/Vol] 28 mmol/L Normal 22-30 [facility] Comment on above: Order Comment: Speci men Type: BLOOD SPECIMEN Ordering Facility: Address: [address] [place] [address] Performed By: #### M PO #### [facility] CLIA [id number] [address] [place] [address] Creatinine [Mass/Vol] 1.27 mg/dL High 0.73-1.22 [facility] Comment on above: Order Comment: Speci men Type: BLOOD SPECIMEN Ordering Facility: Address: [address] [place] [address] Performed By: #### M PO #### [facility] CL[facility] [id number] [address] [place] [address] Creatinine and Glomerular filtration rate.predicted panel (S/P/Bld) 60 mL/min/1.73m??? Normal >=60 [facility] Comment on above: Order Comment: Alexandru campos Type: BLOOD SPECIMEN Ordering Facility: Address: [address] [id number] Result Comment: [facility] Glomerular Filtration Rate (eGFR) is calculated using the 2020 CKD-EPI creatinine equation. This equation utilizes serum creatinine, sex, and age as parameters. The creatinine assay has traceable calibration to isotope dilution-mass spectrometry. Refer to KDIGO guidelines for clinical interpretation. In patients with unstable renal function, e.g. those with acute kidney injury, the eGFR may not accurately reflect actual GFR. Performed By: #### M PO #### [facility] CLIA [id number] [address] [place] [address] Glucose [Mass/Vol] 134 mg/dL High 74-99 [facility] Comment on above: Order Comment: Alexandru campos Type: BLOOD SPECIMEN Ordering Facility: Address: [address] [place] [id number] Result Comment: The [place] Diabetes Association (ADA) provides guidance for cutoff values for fasting glucose and random glucose. The ADA defines fasting as no caloric intake for at least 8 hours. Fasting plasma glucose results between 100 to 125 mg/dL indicate increased risk for diabetes (prediabetes). Fasting plasma glucose results greater than or equal to 126 mg/dL meet the criteria for diagnosis of diabetes. In the absence of unequivocal hyperglycemia, results should be confirmed by repeat testing. In a patient with classic symptoms of hyperglycemia or hyperglycemic crisis, random plasma glucose results greater than or equal to 200 mg/dL meet the criteria for diagnosis of diabetes. Reference: Standards of Medical Care in Diabetes 2016, [place] [employer]. Diabetes Care. 2016.39(Suppl 1). Performed By: #### M PO #### [facility] CLIA [id number] [address] [place] [address] Potassium [Moles/Vol] 3.6 mmol/L Low 3.7-5.1 [facility] Comment on above: Order Comment: Speci men Type: BLOOD SPECIMEN Ordering Facility: Address: [address] [place] [address] Performed By: #### M PO #### [facility] CLIA [id number] [address] [place] [address] Sodium [Moles/Vol] 134 mmol/L Low 136-144 [facility] Comment on above: Order Comment: Speci men Type: BLOOD SPECIMEN Ordering Facility: Address: [address] [place], [place] [address] [id number] Performed By: #### M PO #### [facility] CLIA [id number] [address] [place] [address] Urea nitrogen [Mass/Vol] 25 mg/dL High 9-24 [facility] Comment on above: Order Comment: Speci men Type: BLOOD SPECIMEN Ordering Facility: Address: [address] [place], [place] [address] Performed By: #### M PO #### [facility] CLIA [id number] [address] [place] [address] Anion gap [Moles/Vol] 14 mmol/L Normal 8-15 [facility] Comment on above: Order Comment: Speci men Type: BLOOD SPECIMEN Ordering Facility: Address: [address] [place] [address] Performed By: #### 1 988-5, 82232-4 #### [facility] CLIA [id number] [address] [place] [address] [place] Calcium [Mass/Vol] 9.4 mg/dL Normal 8.5-10.2 [facility] Comment on above: Order Comment: Speci men Type: BLOOD SPECIMEN Ordering Facility: Address: [address] [place] [id number] Performed By: #### 1 988-5, 17389-5 #### [facility] CLIA [id number] [address] [place] [address] [place] Chloride [Moles/Vol] 95 mmol/L Low 98-107 [facility] Comment on above: Order Comment: Alexandru campos Type: BLOOD SPECIMEN Ordering Facility: Address: [address] [place] [address] Performed By: #### 1 988-5, 62421-8 #### [facility] CLIA [id number] [address] [place] [address] [place] CO2 [Moles/Vol] 27 mmol/L Normal 22-30 [facility] Comment on above: Order Comment: Alexandru campos Type: BLOOD SPECIMEN Ordering Facility: Address: [address] [place] [address] Performed By: #### 1 988-5, 28883-6 #### [facility] CLIA [id number] [address] [place] [address] [place] Creatinine [Mass/Vol] 1.34 mg/dL High 0.73-1.22 [facility] Comment on above: Order Comment: Alexandru campos Type: BLOOD SPECIMEN Ordering Facility: Address: [address] [place] [address] Performed By: #### 1 988-5, 07566-7 #### [facility] CLIA [id number] [address] [place] [address] [place] Creatinine and Glomerular filtration rate.predicted panel (S/P/Bld) 56 mL/min/1.73m??? Low >=60 [facility] Comment on above: Order Comment: Alexandru campos Type: BLOOD SPECIMEN Ordering Facility: Address: [address] [place] [address] Result Comment: [facility] Glomerular Filtration Rate (eGFR) is calculated using the 2020 CKD-EPI creatinine equation. This equation utilizes serum creatinine, sex, and age as parameters. The creatinine assay has traceable calibration to isotope dilution-mass spectrometry. Refer to KDIGO guidelines for clinical interpretation. In patients with unstable renal function, e.g. those with acute kidney injury, the eGFR may not accurately reflect actual GFR. Performed By: #### 1 988-5, 58791-4 #### [facility] CLIA [id number] [address] [place] [address] [place] Glucose [Mass/Vol] 100 mg/dL High 74-99 [facility] Comment on above: Order Comment: Alexandru campos Type: BLOOD SPECIMEN Ordering Facility: Address: [address] [place] [address] Result Comment: The [place] Diabetes Association (ADA) provides guidance for cutoff values for fasting glucose and random glucose. The ADA defines fasting as no caloric intake for at least 8 hours. Fasting plasma glucose results between 100 to 125 mg/dL indicate increased risk for diabetes (prediabetes). Fasting plasma glucose results greater than or equal to 126 mg/dL meet the criteria for diagnosis of diabetes. In the absence of unequivocal hyperglycemia, results should be confirmed by repeat testing. In a patient with classic symptoms of hyperglycemia or hyperglycemic crisis, random plasma glucose results greater than or equal to 200 mg/dL meet the criteria for diagnosis of diabetes. Reference: Standards of Medical Care in Diabetes 2016, [place] [employer]. Diabetes Care. 2016.39(Suppl 1). Performed By: #### 1 988-5, 83230-5 #### [facility] CLIA [id number] [address] [place] [address] [place] Potassium [Moles/Vol] 3.6 mmol/L Low 3.7-5.1 [facility] Comment on above: Order Comment: Alexandru campos Type: BLOOD SPECIMEN Ordering Facility: Address: [address] [place] [address] Performed By: #### 1 988-5, 24203-1 #### [facility] CLIA [id number] [address] [place] [address] [place] Sodium [Moles/Vol] 136 mmol/L Normal 136-144 [facility] Comment on above: Order Comment: Alexandru campos Type: BLOOD SPECIMEN Ordering Facility: Address: [address] [place] [address] Performed By: #### 1 988-5, 02723-3 #### [facility] CLIA [id number] [address] [place] [address] [place] Urea nitrogen [Mass/Vol] 26 mg/dL High 9-24 [facility] Comment on above: Order Comment: Speci men Type: BLOOD SPECIMEN Ordering Facility: Address: [address] [place] [address] Performed By: #### 1 988-5, 19929-6 #### [facility] CLIA [id number] [address] [place] [address] [place] Magnesium SerPl-mCncon 12-23 Magnesium [Mass/Vol] 2.2 mg/dL Normal 1.7-2.3 [facility] Comment on above: Order Comment: Speci men Type: BLOOD SPECIMEN Ordering Facility: Address: [address] [place] [address] Performed By: #### 1 988-5, 25121-7 #### [facility] CLIA [id number] [address] [place] [address] [place] NURSING PROGon 12-24-2023 NURSING PROG HNO ID: [id number] Author: SONIYA JO, EVAN Service: ? Author Type: Registered Nurse Type: Nursing Progress Note Filed: 12/24/2023 22:50 Note Text: 1910- Assumed care of pt from outgoing RN, pt seen lying in bed A/O X 3, on RA, no pain or discomfort reported. Safety measures in place and call light within reach. Will continue to monitor. [facility] NURSING PROG HNO ID: [id number] Author: ELIZABETH [place], EVAN Service: Nursing Author Type: Registered Nurse Type: Nursing Progress Note Filed: 12/24/2023 10:54 Note Text: Spoke with Dr Pimentel regarding orders for LR bolus 500ml, and PO lasix 80mg. Instructed to given bolus first, then Lasix an hour after. [facility] NURSING PROG HNO ID: [id number] Author: DWIGHT GLYNN, EVAN Service: Nursing Author Type: Registered Nurse Type: Nursing Progress Note Filed: 12/24/2023 07:56 Note Text: 0200: Spoke with hourly shift ADRIENNE regarding patient BP of 86/59. Pt is asymptomatic and ADRIENNE is not worried about the blood pressure at this time. I was advised to page again if BP goes below 80 or if patient becomes symptomatic. Normal [facility] Urate SerPl-mCncon Urate [Mass/Vol] 7.6 mg/dL Normal 4.0-8.1 [facility] Comment on above: Order Comment: Alexandru campos Type: BLOOD SPECIMEN Ordering Facility: Address: [address] [place] [address] [place] [address] Performed By: #### M PO #### [facility] CLIA [id number] [address] [place] [address] XR CHEST 2V FRONTAL/LATon XR CHEST 2V FRONTAL/LAT * * *Final Report* * * DATE OF EXAM: Dec 24 2023 3:31PM HCX [id number] - XR CHEST 2V FRONTAL/LAT / PROCEDURE REASON: Interstitial lung disease * * * * Physician Interpretation * * * * RESULT: EXAMINATION: CHEST RADIOGRAPH (2 VIEW FRONTAL and LATERAL) CLINICAL HISTORY: Interstitial lung disease MQ: XC2_6 EXAM DATE/TIME: 12/24/2023 3:31 PM COMPARISON: Chest x-ray 12/20/2023 RESULT: Lines, tubes, and devices: Tunneled right pleural catheter with tip overlying the lower posterior right hemithorax. Lungs and pleura: Minimal right pleural effusion. No focal consolidation or pneumothorax is identified. Cardiomediastinal silhouette: The heart is not enlarged. Atheromatous calcification of the aorta. Bones and soft tissues: Chronic mild height loss of a couple of midthoracic vertebral bodies, similar to 11/14/2023. IMPRESSION: Minimal right pleural effusion. Transcribed Using Voice Recognition Transcribe Date/Time: Dec 25 2023 7:50A Dictated by: DELILAH MCMAHON MD This examination was interpreted and the report reviewed and electronically signed by: DELILAH MCMAHON MD on Dec 25 2023 7:53AM EST [id number] Normal [facility] Basic metabolic 2000 panelon 12-23-2023 Anion gap [Moles/Vol] 17 mmol/L High 8-15 [facility] Comment on above: Order Comment: Alexandru campos Type: BLOOD SPECIMENOrdering Facility: Address: [address] [place] [address] Performed By: #### 1 23, 46281-5 ####[facility] [id number] [place] [address] [place] Calcium [Mass/Vol] 9.5 mg/dL Normal 8.5-10.2 [facility] Comment on above: Order Comment: Speci men Type: BLOOD SPECIMENOrdering Facility: Address: [facility] [place] [address] Performed By: #### 1 9123-02, 38939-2 ####[facility] [id number] [place] [address] [place] Chloride [Moles/Vol] 97 mmol/L Low 98-107 [facility] Comment on above: Order Comment: Speci men Type: BLOOD SPECIMENOrdering Facility: Address: [facility] [place] [address] Performed By: #### 1 9123-02, 25404-7 ####[facility] [id number] [place] [address] [place] CO2 [Moles/Vol] 27 mmol/L Normal 22-30 [facility] Comment on above: Order Comment: Speci men Type: BLOOD SPECIMENOrdering Facility: Address: [address] [place] [address] Performed By: #### 1 9123-02, 69695-6 ####[facility] [id number] [place] [address] [place] Creatinine [Mass/Vol] 1.14 mg/dL Normal 0.73-1.22 [facility] Comment on above: Order Comment: Speci men Type: BLOOD SPECIMENOrdering Facility: Address: [facility] [place] [address] Performed By: #### 1 23, 01627-2 ####[facility] [id number] [place] [address] [place] Creatinine and Glomerular filtration rate.predicted panel (S/P/Bld) 68 mL/min/1.73m??? Normal >=60 [facility] Comment on above: Order Comment: Alexandru campos Type: BLOOD SPECIMENOrdering Facility: Address: [address] [place] [address] Result Comment: [facility] Glomerular Filtration Rate (eGFR) is calculated using the 2020 CKD-EPI creatinine equation. This equation utilizes serum creatinine, sex, and age as parameters. The creatinine assay has traceable calibration to isotope dilution-mass spectrometry. Refer to KDIGO guidelines for clinical interpretation. In patients with unstable renal function, e.g. those with acute kidney injury, the eGFR may not accurately reflect actual GFR. Performed By: #### 1 9123-9, 52933-0 ####[facility] [id number] [place] [address] [place] Glucose [Mass/Vol] 113 mg/dL High 74-99 [facility] Comment on above: Order Comment: Alexandru campos Type: BLOOD SPECIMENOrdering Facility: Address: [address] [place] [address] Result Comment: The [place] Diabetes Association (ADA) provides guidance for cutoff values for fasting glucose and random glucose. The ADA defines fasting as no caloric intake for at least 8 hours. Fasting plasma glucose results between 100 to 125 mg/dL indicate increased risk for diabetes (prediabetes). Fasting plasma glucose results greater than or equal to 126 mg/dL meet the criteria for diagnosis of diabetes. In the absence of unequivocal hyperglycemia, results should be confirmed by repeat testing. In a patient with classic symptoms of hyperglycemia or hyperglycemic crisis, random plasma glucose results greater than or equal to 200 mg/dL meet the criteria for diagnosis of diabetes. Reference: Standards of Medical Care in Diabetes 2016, [place] [employer]. Diabetes Care. 2016.39(Suppl 1). Performed By: #### 1 9123-9, 55014-5 ####[facility] [id number] [place] [address] [place] Potassium [Moles/Vol] 3.8 mmol/L Normal 3.7-5.1 [facility] Comment on above: Order Comment: Speci men Type: BLOOD SPECIMENOrdering Facility: Address: [address] [place] [address] Performed By: #### 1 9123-9, 29213-4 ####[facility] [id number] [place] [id number] [place] Sodium [Moles/Vol] 141 mmol/L Normal 136-144 [facility] Comment on above: Order Comment: Speci men Type: BLOOD SPECIMENOrdering Facility: Address: [address] [place] [address] Performed By: #### 1 9123-9, 89738-6 ####[facility] [id number] [place] [address] [place] Urea nitrogen [Mass/Vol] 15 mg/dL Normal 9-24 [facility] Comment on above: Order Comment: Speci men Type: BLOOD SPECIMENOrdering Facility: Address: [address] [place] [address] Performed By: #### 1 9123-9, 58866-3 ####[facility]IA [id number] [place] [address] [place] Magnesium SerPl-mCncon 12-22 Magnesium [Mass/Vol] 1.9 mg/dL Normal 1.7-2.3 [facility] Comment on above: Order Comment: Speci men Type: BLOOD SPECIMENOrdering Facility: Address: [address] [place] [address] Performed By: #### 1 9123-9, 65983-7 ####[facility]IA [id number] [place] [id number] [place] Basic metabolic 2000 panelon 12-22-2023 Anion gap [Moles/Vol] 16 mmol/L High 8-15 [facility] Comment on above: Order Comment: Speci men Type: BLOOD SPECIMEN Ordering Facility: Address: [address] [place] [address] Performed By: #### M PO #### [facility] CLIA [id number] [address] [place] [address] 10580 Calcium [Mass/Vol] 9.0 mg/dL Normal 8.5-10.2 [facility] Comment on above: Order Comment: Speci men Type: BLOOD SPECIMEN Ordering Facility: Address: [address] [place] [address] Performed By: #### M PO #### [facility] CLIA [id number] [address] [place] [address] 44137 Chloride [Moles/Vol] 99 mmol/L Normal 98-107 [facility] Comment on above: Order Comment: Speci men Type: BLOOD SPECIMEN Ordering Facility: Address: [address] [place] [address] Performed By: #### M PO #### [facility] CLIA [id number] [address] [place] [address] 93191 CO2 [Moles/Vol] 24 mmol/L Normal 22-30 [facility] Comment on above: Order Comment: Speci men Type: BLOOD SPECIMEN Ordering Facility: Address: [address] [place] [address] Performed By: #### M PO #### [facility] CLIA [id number] [address] [place] [address] 89116 Creatinine [Mass/Vol] 0.98 mg/dL Normal 0.73-1.22 [facility] Comment on above: Order Comment: Speci men Type: BLOOD SPECIMEN Ordering Facility: Address: [address] [place] [address] Performed By: #### M PO #### [facility] CLIA [id number] [address] [place] [address] 48134 Creatinine and Glomerular filtration rate.predicted panel (S/P/Bld) 82 mL/min/1.73m??? Normal >=60 [facility] Comment on above: Order Comment: Speci men Type: BLOOD SPECIMEN Ordering Facility: Address: [address] [place] [address] Result Comment: Kristel mated Glomerular Filtration Rate (eGFR) is calculated using the 2020 CKD-EPI creatinine equation. This equation utilizes serum creatinine, sex, and age as parameters. The creatinine assay has traceable calibration to isotope dilution-mass spectrometry. Refer to KDIGO guidelines for clinical interpretation. In patients with unstable renal function, e.g. those with acute kidney injury, the eGFR may not accurately reflect actual GFR. Performed By: #### M PO #### [facility] CLIA [id number] [address] [place] [address] 68506 Glucose [Mass/Vol] 109 mg/dL High 74-99 [facility] Comment on above: Order Comment: Alexandru campos Type: BLOOD SPECIMEN Ordering Facility: Address: [address] [place] [id number] Result Comment: The [place] Diabetes Association (ADA) provides guidance for cutoff values for fasting glucose and random glucose. The ADA defines fasting as no caloric intake for at least 8 hours. Fasting plasma glucose results between 100 to 125 mg/dL indicate increased risk for diabetes (prediabetes). Fasting plasma glucose results greater than or equal to 126 mg/dL meet the criteria for diagnosis of diabetes. In the absence of unequivocal hyperglycemia, results should be confirmed by repeat testing. In a patient with classic symptoms of hyperglycemia or hyperglycemic crisis, random plasma glucose results greater than or equal to 200 mg/dL meet the criteria for diagnosis of diabetes. Reference: Standards of Medical Care in Diabetes 2016, [place] [employer] Association. Diabetes Care. 2016.39(Suppl 1). Performed By: #### M PO #### [facility] CLIA [id number] [address] [place] [address] 86893 Potassium [Moles/Vol] 3.3 mmol/L Low 3.7-5.1 [facility] Comment on above: Order Comment: Alexandru campos Type: BLOOD SPECIMEN Ordering Facility: Address: [address] [place] [address] Performed By: #### M PO #### [facility] CLIA [id number] [address] [place] [address] 45554 Sodium [Moles/Vol] 139 mmol/L Normal 136-144 [facility] Comment on above: Order Comment: Alexandru campos Type: BLOOD SPECIMEN Ordering Facility: Address: [address] [place] [address] Performed By: #### M PO #### [facility] CLIA [id number] [address] [place] [address] 58931 Urea nitrogen [Mass/Vol] 12 mg/dL Normal 9-24 [facility] Comment on above: Order Comment: Speci men Type: BLOOD SPECIMEN Ordering Facility: Address: [address] [place] [address] Performed By: #### M PO #### [facility] CLIA [id number] [address] [place], [place] [address] CBC panel Auto (Bld)on 12-21 Erythrocyte distribution width (RBC) [Ratio] 15.3 % High 11.5-15.0 [facility] Comment on above: Order Comment: Speci men Type: BLOOD SPECIMEN Ordering Facility: Address: [address] [place] [address] Performed By: #### M PO #### [facility] CLIA [id number] [address] [place], [place] [address] Hematocrit (Bld) [Volume fraction] 39.3 % Normal 39.0-51.0 [facility] Comment on above: Order Comment: Speci men Type: BLOOD SPECIMEN Ordering Facility: Address: [address] [place] [id number] Performed By: #### M PO #### [facility] CLIA [id number] [address] [place], [place] [address] Hemoglobin (Bld) [Mass/Vol] 12.7 g/dL Low 13.0-17.0 [facility] Comment on above: Order Comment: Speci men Type: BLOOD SPECIMEN Ordering Facility: Address: [address] [place] [address] Performed By: #### M PO #### [facility] CLIA [id number] [address] [place], [place] [address] MCH (RBC) [Entitic mass] 29.6 pg Normal 26.0-34.0 [facility] Comment on above: Order Comment: Speci men Type: BLOOD SPECIMEN Ordering Facility: Address: [address] [place] [address] Performed By: #### M PO #### [facility] CLIA [id number] [address] [place] [address] 13104 MCHC (RBC) [Mass/Vol] 32.3 g/dL Normal 30.5-36.0 [facility] Comment on above: Order Comment: Speci men Type: BLOOD SPECIMEN Ordering Facility: Address: [address] [place], [place] [address] Performed By: #### M PO #### [facility] CLIA [id number] [address] [place], [place] [address] MCV (RBC) [Entitic vol] 91.6 fL Normal 80.0-100.0 [facility] Comment on above: Order Comment: Speci men Type: BLOOD SPECIMEN Ordering Facility: Address: [address] [place] [address] Performed By: #### M PO #### [facility] CLIA [id number] [address] [place] [address] 45939 Nucleated RBC (Bld) [#/Vol] 10*3/uL Normal <0.01 [facility] Comment on above: Order Comment: Speci men Type: BLOOD SPECIMEN Ordering Facility: Address: [address] [place] [address] Performed By: #### M PO #### [facility] CLIA [id number] [address] [place], [place] [address] Platelet mean volume (Bld) [Entitic vol] 10.2 fL Normal 9.0-12.7 [facility] Comment on above: Order Comment: Speci men Type: BLOOD SPECIMEN Ordering Facility: Address: [address] [place] [address] Performed By: #### M PO #### [facility] CLIA [id number] [address] [place] [address] 28446 Platelets (Bld) [#/Vol] 250 10*3/uL Normal 150-400 [facility] Comment on above: Order Comment: Speci men Type: BLOOD SPECIMEN Ordering Facility: Address: [address] [place], [place] [address] Performed By: #### M PO #### [facility] CLIA [id number] [address] [place] [address] 17806 RBC (Bld) [#/Vol] 4.29 10*6/uL Normal 4.20-6.00 [facility] Comment on above: Order Comment: Speci men Type: BLOOD SPECIMEN Ordering Facility: Address: [address] [place] [address] Performed By: #### M PO #### [facility] CLIA [id number] [address] [place] [address] 97152 WBC (Bld) [#/Vol] 5.83 10*3/uL Normal 3.70-11.00 [facility] Comment on above: Order Comment: Speci men Type: BLOOD SPECIMEN Ordering Facility: Address: [address] [place] [address] Performed By: #### M PO #### [facility] CLIA [id number] [address] [place] [address] 12051 CONSULT PROGon 12-22-2023 CONSULT PROG HNO ID: [id number] Author: TITA LANDRY APRN.ATTORNEY LAW CLERK Service: Thoracic Surgery Author Type: Nurse Practitioner Type: Consult Progress Note Filed: 12/22/2023 12:57 Note Text: [facility] THORACIC SURGERY CONSULT PROGRESS NOTE Sav Raymundo [id number] PRIMARY SERVICE: Internal Medicine HOSPITAL DAY: # 2 INTERVAL HISTORY Patient currently sitting up in the bed. Voices frustration with not knowing why he is retaining all of this fluid. Hemodynamically stable, afebrile, no chills, no diaphoresis. Currently on IV lasix gtt. Continues to note abdominal pain; primary ordered KUB. Denies any SOB, cough, lightheadedness, dizziness, chest pain, tightness, or discomfort. No nausea/vomiting or bloating sensation. Patient states 500 cc was removed from left pleurx today. PHYSICAL EXAM BP 109/67 Pulse 102 Temp 37 ?C (98.6 ?F) (Oral) Resp 20 Ht 182.9 cm (6') Wt 94.8 kg (209 lb 1.6 oz) SpO2 96% BMI 28.36 kg/m? RA Intake/Output Summary (Last 24 hours) at 12/22/2023 1217 Last data filed at 12/22/2023 0824 Gross per 24 hour Intake 802 ml Output 4550 ml Net -3748 ml Constitutional: Well developed, Well nourished , and No acute distress HEENT: Sclera anicteric Resp: Unlabored breathing Cardiovascular: Cardiac: Regular rate AND rhythm and S1, S2 normal GI: soft, Distended, tender Integumentary: Warm and Dry Musculoskeletal: No deformities and No joint deformities Neurological/Psychiatric: Oriented to time, place AND person and No gross focal neurologic deficits Additional systems reviewed: No additional systems reviewed DATA Recent Labs 12/22/23 0618 12/21/23 1156 12/20/23 1559 WBC 5.83 6.12 7.00 HB 12.7* 11.8* 12.7* HCT 39.3 36.3* 39.8 PLT 250 215 229 Recent Labs 12/22/23 0618 12/21/23 1156 12/20/23 1559 NA 139 138 137 K 3.3* 3.9 4.6 CO2 24 19* 20* BUN 12 12 15 CREAT 0.98 0.86 1.07 GLUC 109* 115* 111* MG 1.6* -- 2.1 IMAGING I personally reviewed: CT ABD/PEL W IVCON 12/20/2023: IMPRESSION: No acute intra-abdominal pathology. Small volume abdominal and pelvic ascites. Small hiatal hernia. Minute right pleural effusion. Subcutaneous edema abdominal wall, flank regions and upper thighs Dictated by: JOEL FRIED MD CXR 12/20/2023 (After Draining Pleurx): RESULT: The cardiomediastinal silhouette is not enlarged. Right intercostal thoracostomy tube and blunting right costophrenic angle redemonstrated not significantly changed from prior. No discernible pneumothorax. Dictated by: HOLLIS BANEGAS MD RUQ US 12/21/2023: Pending ASSESSMENT Sav Raymundo is a 73 y/o male referred by Alpa Oliva CNP for an opinion regarding management of recurrent right pleural effusion. 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 Simmons for recurrent right pleural effusion. Cytology revealed acute and chronic inflammation and was negative for malignant cells. Pleural biopsies revealed chronic pleuritis with focal reactive mesothelial hyperplasia, and showed no definitive evidence of malignancy. Since surgery he continues to drain 600-1150 cc of awilda pleural fluid every other day. He presented to [facility]acic Clinic 12/19 for postoperative visit, but had numerous other complaints: N/V, weight gain, abdominal distension, edema, and cough. Patient sent to ED for further work-up and management. CT Abd/Pel done revealed small volume abdominal and pelvic ascites and subcutaneous edema abdominal wall, flank regions and upper thighs. He responded well to IV lasix yesterday evening, and is to be started on IV lasix gtt today. Plan: Recurrent Right Pleural Effusion -500 cc out from pleurx today. Breathing stable -Drain pleurx catheter daily and document output amount and characteristics in Epic flowsheet Anasarca of Unknown Etiology -Management per Primary -Lasix gtt -Awaiting Rheumatology input Case discussed with Dr. Remigio Landry, SOFTWARE TOOLS DEVELOPER.ATTORNEY LAW CLERK Pager [phone] 12/22/2023 12:17 PM Normal [facility] Magnesium SerPl-mCncon 12-21 Magnesium [Mass/Vol] 1.6 mg/dL Low 1.7-2.3 [facility] Comment on above: Order Comment: Speci men Type: BLOOD SPECIMEN Ordering Facility: Address: [address] [place] [address] Performed By: #### M PO #### [facility] CLIA [id number] [address] [place] [address] 45957 XR ABDOMEN 1V SUPINEon 12-21 XR ABDOMEN 1V SUPINE * * *Final Report* * * DATE OF EXAM: Dec 22 2023 11:57PM HCX 5289 - XR ABDOMEN 1V SUPINE / PROCEDURE REASON: Abdominal pain * * * * Physician Interpretation * * * * RESULT: EXAMINATION: XR ABDOMEN 1V SUPINE PATIENT/TECHNOLOGIST PROVIDED HISTORY: lasix x 2 days with increasing abdomen pain CLINICAL INFORMATION ( PROVIDED BY ORDERING CLINICIAN) : Abdominal pain. . TECHNIQUE: XR ABDOMEN 1V SUPINE COMPARISON: 12/20/2023 RESULT: Few mildly dilated loops of small bowel in the LEFT side of the abdomen, nonspecific. Moderate volume stool in the RIGHT hemicolon. Gas in the transverse colon. Small RIGHT pleural effusion. Right-sided Pleurx catheter noted. IMPRESSION: See Result Transcribed Using Voice Recognition Transcribe Date/Time: Dec 23 2023 12:18A Dictated by: REGGIE PALMER MD This examination was interpreted and the report reviewed and electronically signed by: REGGIE PALMER MD on Dec 23 2023 12:20AM EST [id number] Normal [facility] 25(OH)D3 SerPl-mCncon 2023 25-hydroxyvitamin D3 [Mass/Vol] 37.2 ng/mL Normal 31.0-80.0 [facility] Comment on above: Order Comment: Speci men Type: BLOOD SPECIMEN Ordering Facility: Address: [address] [place] [address] Performed By: #### 1 1572-5 #### [facility] CLIA [id number] [address] [place] [address] [facility] ALLIED HEALTHon 12-21-2023 ALLIED HEALTH HNO ID: [id number] Author: ISABEL STRINGER RT(Sandee) Service: Radiology Author Type: Molding Manager Type: Allied Health Filed: 12/21/2023 18:11 Note Text: Radiology Service Progress Note PATIENT NAME: Sav Raymundo DATE OF SERVICE: December 21, 2023 TIME: 6:11 PM PATIENT IDENTITY VERIFICATION COMPLETED USING TWO (2) IDENTIFIERS: Name and Date of confirmed by patient verbally and Name and Date of confirmed by identification band. FALL SCREENING: Has the patient had 2 falls in the last year or 1 fall with injury or currently using an Ambulatory Assistive Device (Walker, Cane, Wheelchair, Crutches, etc.)? Inpatient: Screened on floor PATIENT GENDER DATA: Male PATIENT RELEVANT IMPLANT DATA REVIEWED: Not Applicable PATIENT PRESENTS WITH AN IMPLANTABLE OR ATTACHED DIRECTOR REACTOR PROJECTS: No RADIOLOGY DEPARTMENT: Ultrasound PERIPHERAL IV DATA: Not applicable SIGNED BY: RT Geri(Sandee) December 21, 2023 6:11 PM Normal [facility] CBC panel Auto (Bld)on 12-20 Erythrocyte distribution width (RBC) [Ratio] 15.3 % High 11.5-15.0 [facility] Comment on above: Order Comment: Speci men Type: BLOOD SPECIMEN Ordering Facility: Address: [address] [place] [address] Performed By: #### 1 1572-5 #### [facility] CLIA [id number] [address] [place] [address] [place] Hematocrit (Bld) [Volume fraction] 36.3 % Low 39.0-51.0 [facility] Comment on above: Order Comment: Speci men Type: BLOOD SPECIMEN Ordering Facility: Address: [address] [place] [address] Performed By: #### 1 1572-5 #### [facility] CLIA [id number] [address] [place] [address] [place] Hemoglobin (Bld) [Mass/Vol] 11.8 g/dL Low 13.0-17.0 [facility] Comment on above: Order Comment: Speci men Type: BLOOD SPECIMEN Ordering Facility: Address: [address] [place] [address] Performed By: #### 1 1572-5 #### [facility] CLIA [id number] [address] [place] [address] [place] MCH (RBC) [Entitic mass] 29.8 pg Normal 26.0-34.0 [facility] Comment on above: Order Comment: Speci men Type: BLOOD SPECIMEN Ordering Facility: Address: [address] [place] [address] Performed By: #### 1 1572-5 #### [facility] CLIA [id number] [address] [place] [address] [place] MCHC (RBC) [Mass/Vol] 32.5 g/dL Normal 30.5-36.0 [facility] Comment on above: Order Comment: Speci men Type: BLOOD SPECIMEN Ordering Facility: Address: [address] [place] [address] Performed By: #### 1 1572-5 #### [facility] CLIA [id number] [address] [place] [address] [place] MCV (RBC) [Entitic vol] 91.7 fL Normal 80.0-100.0 [facility] Comment on above: Order Comment: Speci men Type: BLOOD SPECIMEN Ordering Facility: Address: [address] [place] [address] Performed By: #### 1 1572-5 #### [facility] CLIA [id number] [address] [place] [address] [place] Nucleated RBC (Bld) [#/Vol] 10*3/uL Normal <0.01 [facility] Comment on above: Order Comment: Speci men Type: BLOOD SPECIMEN Ordering Facility: Address: [address] [place] [address] Performed By: #### 1 1572-5 #### [facility] CLIA [id number] [address] [place] [address] [place] Platelet mean volume (Bld) [Entitic vol] 10.0 fL Normal 9.0-12.7 [facility] Comment on above: Order Comment: Speci men Type: BLOOD SPECIMEN Ordering Facility: Address: [address] [place] [address] Performed By: #### 1 1572-5 #### [facility] CLIA [id number] [address] [place] [address] [place] Platelets (Bld) [#/Vol] 215 10*3/uL Normal 150-400 [facility] Comment on above: Order Comment: Speci men Type: BLOOD SPECIMEN Ordering Facility: Address: [address] [place] [address] Performed By: #### 1 1572-5 #### [facility] CLIA [id number] [address] [place] [address] [place] RBC (Bld) [#/Vol] 3.96 10*6/uL Low 4.20-6.00 [facility] Comment on above: Order Comment: Speci men Type: BLOOD SPECIMEN Ordering Facility: Address: [address] [place] [address] Performed By: #### 1 1572-5 #### [facility] CLIA [id number] [address] [place] [address] [place] WBC (Bld) [#/Vol] 6.12 10*3/uL Normal 3.70-11.00 [facility] Comment on above: Order Comment: Speci men Type: BLOOD SPECIMEN Ordering Facility: Address: [address] [place] [address] Performed By: #### 1 1572-5 #### [facility] CLIA [id number] [address] [place] [address] [place] CONSULTon 12-21-2023 CONSULT HNO ID: [id number] Author: RONALDO SIMMONS MD, PhD Service: Thoracic Surgery Author Type: Physician Type: Consults Filed: 12/22/2023 10:17 Note Text: [facility] CONSULT NOTE Sav Raymundo [id number] Requesting Provider: Alpa Oliva CNP Cardiothoracic Physician: Ronaldo Simmons MD Admit Date: 12/20/2023 LOS : 1 Chief Complaint: Recurrent Effusion HPI: Sav Raymundo is a 73 y/o male referred by Alpa Oliva CNP for an opinion regarding management of recurrent right pleural effusion. 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 Simmons for recurrent right pleural effusion. Cytology revealed acute and chronic inflammation and was negative for malignant cells. Pleural biopsies revealed chronic pleuritis with focal reactive mesothelial hyperplasia, and showed no definitive evidence of malignancy. Since surgery he continues to drain 600-1150 cc of awilda pleural fluid every other day. Patient presented to Thoracic Clinic yesterday for postoperative visit, with complaints of worsening nausea, vomiting, diarrhea, abdominal distension, and cough over the past week. Unintentional weight loss over last 3 months: No PAST MEDICAL HISTORY: PAST MEDICAL HISTORY Diagnosis Date GERD (gastroesophageal reflux disease) History of basal cell cancer left shoulder Mixed hyperlipidemia Osteoarthritis of multiple joints Pleural effusion, right s/p Thoracentesis 10/01/23 = 520 cc, 625 cc PAST SURGICAL HISTORY: PAST SURGICAL HISTORY Procedure Laterality Date ANESTH OPEN/SURG ARTHRS TOTAL KNEE ARTHROPLASTY Left 08/23/2014 ARTHROSCOPY KNEE DIAGNOSTIC W/WO SYNOVIAL BX SPX Left 2010 ORTHOPEDIC SURGERY HX Right Hand PAST SURGICAL HISTORY OF Left 11/2014 Shoulder -BASAL CELL CARCINOMA EXCISION TOTAL KNEE REPLACEMENT Right 06/25/2016 FAMILY HISTORY: FAMILY HISTORY Problem Relation Age of Onset Heart Father SOCIAL HISTORY: Social History Tobacco Use Smoking status: Never Smokeless tobacco: Never MEDICATIONS: Prior to Admission Medications: furosemide (LASIX) 20 mg tabletTake 1 tablet by mouth once daily for 5 days.Disp: 5 tabletRfl: 0 (Patient not taking: Reported on 12/20/2023) acetaminophen (TYLENOL) 500 mg tabletTake 2 tablets by mouth every 6 hours.Disp: Rfl: [START ON 12/23/2023] losartan (COZAAR) 25 mg tabletTake 1 tablet by mouth once daily. Patient should start on December 23, 2023.Disp: Rfl: metoprolol tartrate, short acting, (LOPRESSOR) 25 mg tabletTake 1 tablet by mouth every 12 hours. Metoprolol was prescribed to prevent atrial fibrillation after thoracic surgery. Stop this medication after 30 days.Disp: 60 tabletRfl: 0 (Patient not taking: Reported on 12/20/2023) Nebulizer and Compressor For Neb (INNOSPIRE ESSENCE)1 Each four times daily.Disp: 1 EachRfl: 0 ipratropium-albuterol (DUONEB) 0.5 mg-3 mg(2.5 mg base)/3 mL nebuInhale 3 mL as instructed every 6 hours as needed for wheezing/shortness of breath.Disp: 360 mLRfl: 0 allopurinol (ZYLOPRIM) 300 mg tabletTake 300 mg by mouth once daily.Disp: Rfl: atorvastatin (LIPITOR) 10 mg tabletTake 1 tablet by mouth once daily.Disp: Rfl: omeprazole (PRILOSEC) 20 mg capsuleTake 20 mg by mouth once daily.Disp: Rfl: ALLERGIES: ALLERGIES Allergen Reactions Tramadol Mental Status Change COMPLETE REVIEW OF SYSTEMS Constitutional: No weight loss, malaise or fevers. HEENT: Negative for frequent or significant headaches, No changes in hearing or vision, no nose bleeds or other nasal problems Resp: Negative for cough, wheezing, or shortness of breath Cardiovascular: Negative for chest pain, leg swelling or palpitations GI: +N/V, diarrhea, distension : No history of dysuria, frequency, or incontinence Musculoskeletal: Negative for joint pain or swelling, back pain or muscle pain Endo: Negative for cold or heat intolerance, polyuria, polydipsia and goiter Neurologic: No history or headaches, syncope, paralysis, seizures or tremors Integumentary: Negative for lesions, rash, and itching. Pain: Negative for pain, history of chronic pain, or current treatment for a chronic pain condition Additional systems reviewed: No additional systems reviewed PHYSICAL EXAM BP 115/60 Pulse 86 Temp (Src) 98.1 (Oral) Resp 20 Ht 6' 0 (1.83m) Wt 225 lb 8.5 oz (102.3kg) SpO2 92% BMI 30.58 kg/(m2). O2 Therapy: Room Air Constitutional: Well developed, Well nourished , and No acute distress HEENT: anicteric Resp: Clear and Respiratory effort: normal Cardiovascular: Regular rate AND rhythm and S1, S2 normal GI: Distended, anasarca Integumentary: Warm and Dry Musculoskeletal: No deformities and No joint deformities Neurological/Psychiatric: Oriented to time, place AND person and No gross focal neurologic deficits Additional systems reviewed: No additional systems (more content not included)... Normal [facility] CRP SerPl-ncon 12-21-2023 CRP [Mass/Vol] 1.8 mg/dL High <0.9 [facility] Comment on above: Order Comment: Speci men Type: BLOOD SPECIMEN Ordering Facility: Address: [address] [place] [address] Performed By: #### 1 988-5, 44284-3 #### [facility] CLIA [id number] [address] [place], [place] [id number] [place] Comprehensive metabolic 2000 panelon 12-21-2023 Albumin [Mass/Vol] 3.4 g/dL Low 3.9-4.9 [facility] Comment on above: Order Comment: Speci men Type: BLOOD SPECIMEN Ordering Facility: Address: [address] [place] [address] Performed By: #### 1 988-5, 16429-4 #### [facility] CLIA [id number] [address] [place] [address] [place] ALP [Catalytic activity/Vol] 100 U/L Normal 38-113 [facility] Comment on above: Order Comment: Speci men Type: BLOOD SPECIMEN Ordering Facility: Address: [address] [place] [address] Performed By: #### 1 988-5, 57982-9 #### [facility] CLIA [id number] [address] [place] [address] [place] ALT [Catalytic activity/Vol] 11 U/L Normal 10-54 [facility] Comment on above: Order Comment: Speci men Type: BLOOD SPECIMEN Ordering Facility: Address: [address] [place] [address] Performed By: #### 1 988-5, 10340-0 #### [facility] CLIA [id number] [address] [place] [address] [place] Anion gap [Moles/Vol] 13 mmol/L Normal 8-15 [facility] Comment on above: Order Comment: Speci men Type: BLOOD SPECIMEN Ordering Facility: Address: [address] [place] [address] Performed By: #### 1 988-5, 45241-3 #### [facility] CLIA [id number] [address] [place] [address] [place] AST [Catalytic activity/Vol] 18 U/L Normal 14-40 [facility] Comment on above: Order Comment: Speci men Type: BLOOD SPECIMEN Ordering Facility: Address: [address] [place] [address] Performed By: #### 1 988-5, 85995-0 #### [facility] CLIA [id number] [address] [place] [address] [place] Bilirubin [Mass/Vol] 0.8 mg/dL Normal 0.2-1.3 [facility] Comment on above: Order Comment: Speci men Type: BLOOD SPECIMEN Ordering Facility: Address: [facility] [place] [address] Performed By: #### 1 988-5, #### [facility] CLIA [id number] [address] [place] [address] [place] Calcium [Mass/Vol] 8.7 mg/dL Normal 8.5-10.2 [facility] Comment on above: Order Comment: Speci men Type: BLOOD SPECIMEN Ordering Facility: Address: [facility] [place] [address] Performed By: #### 1 988-5, #### [facility] CLIA [id number] [address] [place] [address] [place] Chloride [Moles/Vol] 106 mmol/L Normal 98-107 [facility] Comment on above: Order Comment: Speci men Type: BLOOD SPECIMEN Ordering Facility: Address: [facility] [place] [address] Performed By: #### 1 988-5, #### [facility] CLIA [id number] [address] [place] [address] [place] CO2 [Moles/Vol] 19 mmol/L Low 22-30 [facility] Comment on above: Order Comment: Speci men Type: BLOOD SPECIMEN Ordering Facility: Address: [facility] [place] [address] Performed By: #### 1 988-5, 80475-0 #### [facility] CLIA [id number] [address] [place] [address] [place] Creatinine [Mass/Vol] 0.86 mg/dL Normal 0.73-1.22 [facility] Comment on above: Order Comment: Alexandru campos Type: BLOOD SPECIMEN Ordering Facility: Address: [address] [place] [address] Performed By: #### 1 988-5, 01252-2 #### [facility] CLIA [id number] [address] [place] [address] [place] Creatinine and Glomerular filtration rate.predicted panel (S/P/Bld) 92 mL/min/1.73m??? Normal >=60 [facility] Comment on above: Order Comment: Alexandru campos Type: BLOOD SPECIMEN Ordering Facility: Address: [address] [place] [address] Result Comment: [facility] Glomerular Filtration Rate (eGFR) is calculated using the 2020 CKD-EPI creatinine equation. This equation utilizes serum creatinine, sex, and age as parameters. The creatinine assay has traceable calibration to isotope dilution-mass spectrometry. Refer to KDIGO guidelines for clinical interpretation. In patients with unstable renal function, e.g. those with acute kidney injury, the eGFR may not accurately reflect actual GFR. Performed By: #### 1 988-5, 50130-5 #### [facility] CLIA [id number] [address] [place] [address] [place] Glucose [Mass/Vol] 115 mg/dL High 74-99 [facility] Comment on above: Order Comment: Alexandru campos Type: BLOOD SPECIMEN Ordering Facility: Address: [address] [place] [address] Result Comment: The [place] Diabetes Association (ADA) provides guidance for cutoff values for fasting glucose and random glucose. The ADA defines fasting as no caloric intake for at least 8 hours. Fasting plasma glucose results between 100 to 125 mg/dL indicate increased risk for diabetes (prediabetes). Fasting plasma glucose results greater than or equal to 126 mg/dL meet the criteria for diagnosis of diabetes. In the absence of unequivocal hyperglycemia, results should be confirmed by repeat testing. In a patient with classic symptoms of hyperglycemia or hyperglycemic crisis, random plasma glucose results greater than or equal to 200 mg/dL meet the criteria for diagnosis of diabetes. Reference: Standards of Medical Care in Diabetes 2016, [place] [employer] Association. Diabetes Care. 2016.39(Suppl 1). Performed By: #### 1 988-5, 39299-0 #### [facility] CLIA [id number] [address] [place] [address] [place] Potassium [Moles/Vol] 3.9 mmol/L Normal 3.7-5.1 [facility] Comment on above: Order Comment: Speci men Type: BLOOD SPECIMEN Ordering Facility: Address: [address] [place] [address] Performed By: #### 1 988-5, 48698-8 #### [facility] CLIA [id number] [address] [place] [address] [place] Protein [Mass/Vol] 6.4 g/dL Normal 6.3-8.0 [facility] Comment on above: Order Comment: Speci men Type: BLOOD SPECIMEN Ordering Facility: Address: [address] [place] [address] Performed By: #### 1 988-5, 15073-2 #### [facility] CLIA [id number] [address] [place] [address] [place] Sodium [Moles/Vol] 138 mmol/L Normal 136-144 [facility] Comment on above: Order Comment: Speci men Type: BLOOD SPECIMEN Ordering Facility: Address: [address] [place] [address] Performed By: #### 1 988-5, 89174-9 #### [facility] CLIA [id number] [address] [place] [address] [place] Urea nitrogen [Mass/Vol] 12 mg/dL Normal 9-24 [facility] Comment on above: Order Comment: Speci men Type: BLOOD SPECIMEN Ordering Facility: Address: [address] [place] [address] Performed By: #### 1 988-5, 26499-7 #### [facility] CLIA [id number] [address] [place] [address] [place] Cyclic citrullinated peptide IgG Qnon 12-21-2023 [facility] ANTIBODY IGG QUALITATIVE Negative Normal Negative [facility] Comment on above: Order Comment: Speci men Type: BLOOD SPECIMEN Ordering Facility: Address: [address] [place] [address] Performed By: #### 1 1572-5 #### [facility] CLIA [id number] [address] [facility] [id number] [address] [place] ESR Westergren method (Bld) [Velocity]on 12-21-2023 ESR (Bld) [Velocity] 33 mm/h High 0-15 [facility] Comment on above: Order Comment: Speci men Type: BLOOD SPECIMEN Ordering Facility: Address: [address] [place] [address] Performed By: #### M PO #### [facility] CLIA [id number] [address] [facility] [address] [address] HISTORY PHYSICALon HISTORY PHYSICAL HNO ID: [id number] Author: JOSE ANTONIO MEYERS MD Service: Family Practice Author Type: Physician Type: H&P Filed: 12/21/2023 10:08 Note Text: HISTORY AND PHYSICAL EXAMINATION SERVICE DATE: 12/21/2023 SERVICE TIME: 9:55 AM PRIMARY CARE PHYSICIAN: Yuli Mariscal DO Subjective CHIEF COMPLAINT: Shortness of breath, chronic pleural effusion, leg swelling HPI: This is a 73 year old male with a past medical history significant for hypertension, GERD, osteoarthritis, gout, chronic pleural effusion since July 2023 , status post multiple thoracocentesis and VATS procedure on the right with biopsy,pleurodesis and Pleurx catheter placement on 11/20/2023 who presents with increased shortness of breath and increased pleural effusion. Was referred to the hospital by cardiothoracic surgeon Dr. Urias. Pleural effusion is an exudate negative for malignant cells and pleural biopsy negative for malignancy. While in the emergency room the entire workup did not reveal any acute findings including chest x-ray as well as CT abdomen pelvis showed no acute intra-abdominal pathology and small volume abdominal pelvic ascites. There is subcu edema in the abdominal wall. Patient admitted to regular nursing floor for further management and further workup. FUNCTIONAL STATUS: Independent PAST MEDICAL HISTORY Diagnosis Date GERD (gastroesophageal reflux disease) History of basal cell cancer left shoulder Mixed hyperlipidemia Osteoarthritis of multiple joints Pleural effusion, right s/p Thoracentesis 10/01/23 = 520 cc, 625 cc PAST SURGICAL HISTORY Procedure Laterality Date ANESTH OPEN/SURG ARTHRS TOTAL KNEE ARTHROPLASTY Left 08/23/2014 ARTHROSCOPY KNEE DIAGNOSTIC W/WO SYNOVIAL BX SPX Left 2010 ORTHOPEDIC SURGERY HX Right Hand PAST SURGICAL HISTORY OF Left 11/2014 Shoulder -BASAL CELL CARCINOMA EXCISION TOTAL KNEE REPLACEMENT Right 06/25/2016 FAMILY HISTORY Problem Relation Age of Onset Heart Father Social History Tobacco Use Smoking status: Never Smokeless tobacco: Never furosemide (LASIX) 20 mg tablet, Take 1 tablet by mouth once daily for 5 days. (Patient not taking: Reported on 12/20/2023), Disp: 5 tablet, Rfl: 0, Not Taking acetaminophen (TYLENOL) 500 mg tablet, Take 2 tablets by mouth every 6 hours., Disp: , Rfl: [START ON 12/23/2023] losartan (COZAAR) 25 mg tablet, Take 1 tablet by mouth once daily. Patient should start on December 23, 2023., Disp: , Rfl: metoprolol tartrate, short acting, (LOPRESSOR) 25 mg tablet, Take 1 tablet by mouth every 12 hours. Metoprolol was prescribed to prevent atrial fibrillation after thoracic surgery. Stop this medication after 30 days. (Patient not taking: Reported on 12/20/2023), Disp: 60 tablet, Rfl: 0, Not Taking Nebulizer and Compressor For Neb (INNOSPIRE ESSENCE), 1 Each four times daily., Disp: 1 Each, Rfl: 0 ipratropium-albuterol (DUONEB) 0.5 mg-3 mg(2.5 mg base)/3 mL nebu, Inhale 3 mL as instructed every 6 hours as needed for wheezing/shortness of breath., Disp: 360 mL, Rfl: 0 allopurinol (ZYLOPRIM) 300 mg tablet, Take 300 mg by mouth once daily., Disp: , Rfl: atorvastatin (LIPITOR) 10 mg tablet, Take 1 tablet by mouth once daily., Disp: , Rfl: omeprazole (PRILOSEC) 20 mg capsule, Take 20 mg by mouth once daily., Disp: , Rfl: ALLERGIES Allergen Reactions Tramadol Mental Status Change COMPLETE REVIEW OF SYSTEMS: GENERAL: No weight loss, malaise or fevers NECK: Negative for lumps, goiter, pain and significant neck swelling RESPIRATORY: Negative for cough, hemoptysis, wheezing, COPD,+ dyspnea or shortness of breath CARDIOVASCULAR: Negative for chest pain, leg swelling,+ hypertension,no CHF or palpitations GI: No nausea, vomiting, or diarrhea SKIN: Negative for lesions, rash, and itching NEURO: No history of headaches, syncope, paralysis, seizures or tremors Objective PHYSICAL EXAM: Physical Exam Performed: GENERAL: Obese, alert, no distress, cooperative SKIN: Skin color, texture, turgor normal. No rashes or lesions. LUNGS: Lungs decreased breath sounds in bases, Good diaphragmatic excursion, right-sided Pleurx catheter in place CARDIAC: Normal S1 and S2; no rubs, murmurs, or gallops ABDOMEN: Abdomen soft, non-tender, BS normal, No masses or organomegaly EXTREMITIES: Extremities normal, no deformities, +2+3 pitting edema,no clubbing or skin discoloration. Good capillary refill., No ulcers NEURO: Gait not assessed. Reflexes normal and symmetric. Sensation grossly intact, Cranial nerves II-XII intact WOUND: Clean, dry and intact BP 115/60 Pulse 86 Temp (Src) 98.1 (Oral) Resp 20 Ht 6' 0 (1.83m) Wt 225 lb 8.5 oz (102.3kg) SpO2 92% BMI 30.58 kg/(m2). O2 Therapy: Room Air DATA: Diagnostic tests reviewed for today's visit: Most recent labs and imaging results. Assessment/Plan Active Hospital Problems Anasarca (POA: Yes) Primary hypertension (POA: Status not on file) Recurrent (more content not included)... Normal [facility] Nuclear Ab IA Ql (S)on 12-20 GREY SCR QUAL Negative Normal Negative [facility] Comment on above: Order Comment: Speci men Type: BLOOD SPECIMEN Ordering Facility: Address: [address], [place] [address] Result Comment: The qualitative antinuclear antibody screen test performed using the following antigens: dsDNA, Chromatin, Ribosomal P, SS-A 60, SS-A 52, SS-B, Sm, SmRNP, ADOBE MAKER A, ADOBE MAKER 68, Scl-70, Alice-1, and Centromere B. Methodology: Multiplex flow immunoassay. Performed By: #### 1 1572-5 #### [facility] CLIA [id number] [address] [place] [address] [place] PROTEINASE 3 ANTIBODYon 07-0 Proteinase 3 Ab Qn (S) <0.2 Normal <1.0 [facility] Comment on above: Order Comment: Speci men Type: BLOOD SPECIMEN Ordering Facility: Address: [address] [place] [address] Performed By: #### 1 1572-5 #### [facility] IA [id number] [address] [place] [address] [place] Rheumatoid fact SerPl-aCncon 12-21-2023 Rheumatoid factor Qn [IU]/mL Normal <16 [facility] Comment on above: Order Comment: Speci men Type: BLOOD SPECIMEN Ordering Facility: Address: [address] [place] [address] Performed By: #### 1 1572-5 #### [facility] IA [id number] [address] [place] [address] [place] US ABD RIGHT UPPER QUADRANTo n 12-21-2023 US ABD RIGHT UPPER QUADRANT * * *Final Report* * * DATE OF EXAM: Dec 21 2023 6:09PM U 1032 - US ABD RIGHT UPPER QUADRANT / PROCEDURE REASON: Nausea/vomiting * * * * Physician Interpretation * * * * RESULT: EXAMINATION: RIGHT UPPER QUADRANT ULTRASOUND CLINICAL HISTORY: Nausea and vomiting TECHNIQUE: Sonography of the right upper quadrant was performed. Images were obtained and stored in a permanent archive. MQ: URUQ_2 COMPARISON: CT 12/20/2023 RESULT: Pancreas: Obscured by overlying bowel gas Liver: Echotexture: Normal, homogeneous. Echogenicity: Normal Surface contour: Smooth Lesions: None. Biliary: No intrahepatic biliary duct dilation. CBD: 0.4 cm at the hilum. Gallbladder: Normal caliber -Contents: No cholelithiasis -Wall: Normal -Other: No pericholecystic fluid. Right Kidney: No hydronephrosis. Ascites: Trace perihepatic ascites Small right pleural effusion IMPRESSION: Trace ascites and small right pleural effusion. Nonvisualization of the pancreas Transcribed Using Voice Recognition Transcribe Date/Time: Dec 22 2023 3:16P Dictated by: NENA FERMIN MD This examination was interpreted and the report reviewed and electronically signed by: NENA FERMIN MD on Dec 22 2023 3:17PM EST [id number] Normal [facility] XR Chest PA and Lateralon IMPRESSION: Stable exam with a persistent right pleural effusion. Transcribed Using Voice Recognition Transcribe Date/Time: Dec 21 2023 10:02A Dictated by: JEFFREY KRUEGER MD This examination was interpreted and the report reviewed and electronically signed by: JEFFREY KRUEGER MD on Dec 21 2023 10:03AM EST [facility] * * *Final Report* * * DATE OF EXAM: Dec 20 2023 1:13PM HCX 5291 - XR CHEST 2V FRONTAL/LAT / PROCEDURE REASON: Pleural effusion * * * * Physician Interpretation * * * * RESULT: EXAMINATION: CHEST RADIOGRAPH (2 VIEW FRONTAL & LATERAL) CLINICAL HISTORY: Pleural effusion MQ: XC2_6 EXAM DATE/TIME: 12/20/2023 1:13 PM COMPARISON: 12/13/2023. RESULT: Lines, tubes, and devices: A right chest tube remains in place. Lungs and pleura: There is a persistent small right pleural effusion. There are atelectatic changes in the right lung base. There is a vague focal opacity in the right mid chest probably representing loculation of pleural fluid. A follow-up exam is recommended. Cardiomediastinal silhouette: Stable cardiomediastinal silhouette. Bones and soft tissues: Unremarkable. [facility] Provider, [facility] - 12/21/2023 * * *Final Report* * * DATE OF EXAM: Dec 20 2023 1:13PM HCX 5291 - XR CHEST 2V FRONTAL/LAT / PROCEDURE REASON: Pleural effusion * * * * Physician Interpretation * * * * RESULT: EXAMINATION: CHEST RADIOGRAPH (2 VIEW FRONTAL & LATERAL) CLINICAL HISTORY: Pleural effusion MQ: XC2_6 EXAM DATE/TIME: 12/20/2023 1:13 PM COMPARISON: 12/13/2023. RESULT: Lines, tubes, and devices: A right chest tube remains in place. Lungs and pleura: There is a persistent small right pleural effusion. There are atelectatic changes in the right lung base. There is a vague focal opacity in the right mid chest probably representing loculation of pleural fluid. A follow-up exam is recommended. Cardiomediastinal silhouette: Stable cardiomediastinal silhouette. Bones and soft tissues: Unremarkable. IMPRESSION IMPRESSION: Stable exam with a persistent right pleural effusion. Transcribed Using Voice Recognition Transcribe Date/Time: Dec 21 2023 10:02A Dictated by: JEFFREY KRUEGER MD This examination was interpreted and the report reviewed and electronically signed by: JEFFREY KRUEGER MD on Dec 21 2023 10:03AM EST [facility] XR Chest PA and LateralOrder ed By: [facility] Provider on 12-21-2023 [facility] cCP IgG SerPl-aCncon 024 Cyclic citrullinated peptide IgG Qn <15 Normal <20 [facility] Comment on above: Order Comment: Speci men Type: BLOOD SPECIMEN Ordering Facility: Address: [address] [place] [address] Performed By: #### 1 1572-5 #### [facility] CLIA [id number] [address] [place], [place] [address] [place] [address] [place] ALLIED HEALTHon 12-20-2023 ALLIED HEALTH HNO ID: [id number] Author: AMNA MASSEY RT(R) Service: ? Author Type: Technologist Type: Allied Health Filed: 12/20/2023 17:10 Note Text: Radiology Service Progress Note DATE OF SERVICE: December 20, 2023 TIME: 5:06 PM PATIENT IDENTITY VERIFICATION COMPLETED USING TWO (2) STANDARD IDENTIFIERS: Name and Date of confirmed by patient verbally. FALL SCREENING: Has the patient had 2 falls in the last year or 1 fall with injury or currently using an Ambulatory Assistive Device (Walker, Cane, Wheelchair, Crutches, etc.)? Emergency Room Patient: Screened in ED PATIENT GENDER DATA: Male PATIENT RELEVANT IMPLANT DATA REVIEWED: Not Applicable PATIENT PRESENTS WITH AN IMPLANTABLE OR ATTACHED DIRECTOR REACTOR PROJECTS: No ALLERGIES: Reviewed and unchanged CONTRAST ALLERGY: NO. EXAM: CT -CONTRAST INDUCED NEPHROPATHY RISK FACTORS: Not applicable CREATININE: Creatinine Date Value Ref Range Status 12/20/2023 1.07 0.73 - 1.22 mg/dL Final 11/23/2023 0.91 0.73 - 1.22 mg/dL Final 11/22/2023 1.10 0.73 - 1.22 mg/dL Final Estimated Glomerular Filtration Rate Date Value Ref Range Status 12/20/2023 74 >=60 mL/min/1.73m? Final Comment: Estimated Glomerular Filtration Rate (eGFR) is calculated using the 2020 CKD-EPI creatinine equation. This equation utilizes serum creatinine, sex, and age as parameters. The creatinine assay has traceable calibration to isotope dilution-mass spectrometry. Refer to KDIGO guidelines for clinical interpretation. In patients with unstable renal function, e.g. those with acute kidney injury, the eGFR may not accurately reflect actual GFR. P.O.C.T. RESULTS: N/A December 20, 2023 TREATMENT: N/A PERIPHERAL IV DATA: Inpatient - refer to [facility] documentation RADIOLOGY DEPARTMENT: CT; Exam(s) Completed: Abdomen/Pelvis SIGNATURE: RT Arely(R) PATIENT NAME: Sav Raymundo DATE: December 20, 2023 TIME: 5:06 PM [id number] Author: OBI HAAS Tech Service: Radiology Author Type: Process Expert Type: Allied Health Filed: 12/20/2023 15:12 Note Text: Radiology Service Progress Note PATIENT NAME: Sav Raymundo DATE OF SERVICE: December 20, 2023 TIME: 3:12 PM PATIENT IDENTITY VERIFICATION COMPLETED USING TWO (2) IDENTIFIERS: Name and Date of confirmed by patient verbally and Name and Date of confirmed by identification band. FALL SCREENING: Has the patient had 2 falls in the last year or 1 fall with injury or currently using an Ambulatory Assistive Device (Walker, Cane, Wheelchair, Crutches, etc.)? Emergency Room Patient: Screened in ED PATIENT GENDER DATA: Male PATIENT RELEVANT IMPLANT DATA REVIEWED: Yes PATIENT PRESENTS WITH AN IMPLANTABLE OR ATTACHED DIRECTOR REACTOR PROJECTS: No RADIOLOGY DEPARTMENT: General X-ray: Exam(s) Completed: Chest X-Ray PERIPHERAL IV DATA: Not applicable SIGNED BY: Levy Castanon December 20, 2023 3:12 PM Normal [facility] CBC W Auto Differential pane l (Bld)on 12-20-2023 Basophils (Bld) [#/Vol] 0.05 10*3/uL Normal <0.11 [facility] Comment on above: Order Comment: Speci men Type: BLOOD SPECIMEN Ordering Facility: Address: [address] [place] [address] Performed By: #### M PO #### [facility] CLIA [id number] [address] [place] [address] Basophils/100 WBC (Bld) 0.7 % Normal [facility] Comment on above: Order Comment: Speci men Type: BLOOD SPECIMEN Ordering Facility: Address: [address] [place] [address] Performed By: #### M PO #### [facility] CLIA [id number] [address] [place] [address] Differential cell count method Nom (Bld) Auto Normal [facility] Comment on above: Order Comment: Speci men Type: BLOOD SPECIMEN Ordering Facility: Address: [address] [place] [address] Performed By: #### M PO #### [facility] CLIA [id number] [address] [place] [address] Eosinophils (Bld) [#/Vol] 0.20 10*3/uL Normal <0.46 [facility] Comment on above: Order Comment: Speci men Type: BLOOD SPECIMEN Ordering Facility: Address: [address] [place] [address] Performed By: #### M PO #### [facility] CLIA [id number] [address] [place] [address] Eosinophils/100 WBC (Bld) 2.9 % Normal [facility] Comment on above: Order Comment: Speci men Type: BLOOD SPECIMEN Ordering Facility: Address: [address] [place] [address] Performed By: #### M PO #### [facility] CLIA [id number] [address] [place], [place] [address] Erythrocyte distribution width (RBC) [Ratio] 15.3 % High 11.5-15.0 [facility] Comment on above: Order Comment: Speci men Type: BLOOD SPECIMEN Ordering Facility: Address: [address] [place] [address] Performed By: #### M PO #### [facility] CLIA [id number] [address] [place], [place] [address] Hematocrit (Bld) [Volume fraction] 39.8 % Normal 39.0-51.0 [facility] Comment on above: Order Comment: Speci men Type: BLOOD SPECIMEN Ordering Facility: Address: [address] [place] [address] Performed By: #### M PO #### [facility] CLIA [id number] [address] [place], [place] [address] Hemoglobin (Bld) [Mass/Vol] 12.7 g/dL Low 13.0-17.0 [facility] Comment on above: Order Comment: Speci men Type: BLOOD SPECIMEN Ordering Facility: Address: [address] [place] [address] Performed By: #### M PO #### [facility] CLIA [id number] [address] [place], [place] [address] Immature granulocytes (Bld) [#/Vol] 0.05 10*3/uL Normal <0.10 [facility] Comment on above: Order Comment: Speci men Type: BLOOD SPECIMEN Ordering Facility: Address: [address] [place] [address] Performed By: #### M PO #### [facility] CLIA [id number] [address] [place], [place] [address] Immature granulocytes/100 WBC (Bld) 0.7 % Normal [facility] Comment on above: Order Comment: Speci men Type: BLOOD SPECIMEN Ordering Facility: Address: [address] [place] [address] Performed By: #### M PO #### [facility] CLIA [id number] [address] [place] [address] Lymphocytes (Bld) [#/Vol] 1.26 10*3/uL Normal 1.00-4.00 [facility] Comment on above: Order Comment: Speci men Type: BLOOD SPECIMEN Ordering Facility: Address: [address] [place] [address] Performed By: #### M PO #### [facility] CLIA [id number] [address] [place] [address] 88675 Lymphocytes/100 WBC (Bld) 18.0 % Normal [facility] Comment on above: Order Comment: Speci men Type: BLOOD SPECIMEN Ordering Facility: Address: [address] [place] [address] Performed By: #### M PO #### [facility] CLIA [id number] [address] [place], [place] [address] MCH (RBC) [Entitic mass] 29.9 pg Normal 26.0-34.0 [facility] Comment on above: Order Comment: Speci men Type: BLOOD SPECIMEN Ordering Facility: Address: [address] [place] [address] Performed By: #### M PO #### [facility] CLIA [id number] [address] [place] [address] 71992 MCHC (RBC) [Mass/Vol] 31.9 g/dL Normal 30.5-36.0 [facility] Comment on above: Order Comment: Speci men Type: BLOOD SPECIMEN Ordering Facility: Address: [address] [place] [address] Performed By: #### M PO #### [facility] CLIA [id number] [address] [place] [address] 01001 MCV (RBC) [Entitic vol] 93.6 fL Normal 80.0-100.0 [facility] Comment on above: Order Comment: Speci men Type: BLOOD SPECIMEN Ordering Facility: Address: [address] [place] [address] Performed By: #### M PO #### [facility] CLIA [id number] [address] [place] [address] 58266 Monocytes (Bld) [#/Vol] 0.66 10*3/uL Normal <0.87 [facility] Comment on above: Order Comment: Speci men Type: BLOOD SPECIMEN Ordering Facility: Address: [address] [place] [address] Performed By: #### M PO #### [facility] CLIA [id number] [address] [place] [address] 91276 Monocytes/100 WBC (Bld) 9.4 % Normal [facility] Comment on above: Order Comment: Speci men Type: BLOOD SPECIMEN Ordering Facility: Address: [address] [place] [address] Performed By: #### M PO #### [facility] CLIA [id number] [address] [place] [address] 58410 Neutrophils (Bld) [#/Vol] 4.78 10*3/uL Normal 1.45-7.50 [facility] Comment on above: Order Comment: Speci men Type: BLOOD SPECIMEN Ordering Facility: Address: [address] [place] [id number] Performed By: #### M PO #### [facility] CLIA [id number] [address] [place] [address] 03619 Neutrophils/100 WBC (Bld) 68.3 % Normal [facility] Comment on above: Order Comment: Speci men Type: BLOOD SPECIMEN Ordering Facility: Address: [address] [place] [id number] Performed By: #### M PO #### [facility] CLIA [id number] [address] [place] [address]3740 Nucleated RBC (Bld) [#/Vol] 10*3/uL Normal <0.01 [facility] Comment on above: Order Comment: Speci men Type: BLOOD SPECIMEN Ordering Facility: Address: [address] [place] [address] Performed By: #### M PO #### [facility] CLIA [id number] [address] [place] [address] [place] [address] Nucleated RBC/100 WBC (Bld) [Ratio] 0.0 /100 WBC Normal [facility] Comment on above: Order Comment: Speci men Type: BLOOD SPECIMEN Ordering Facility: Address: [address] [place] [address] Performed By: #### M PO #### [facility] CLIA [id number] [address] [place] [address] 63270 Platelet mean volume (Bld) [Entitic vol] 10.1 fL Normal 9.0-12.7 [facility] Comment on above: Order Comment: Speci men Type: BLOOD SPECIMEN Ordering Facility: Address: [address] [place] [id number] Performed By: #### M PO #### [facility] CLIA [id number] [address] [place] [address] 62922 Platelets (Bld) [#/Vol] 229 10*3/uL Normal 150-400 [facility] Comment on above: Order Comment: Speci men Type: BLOOD SPECIMEN Ordering Facility: Address: [address] [place] [address] Performed By: #### M PO #### [facility] CLIA [id number] [address] [place] [address] 79257 RBC (Bld) [#/Vol] 4.25 10*6/uL Normal 4.20-6.00 [facility] Comment on above: Order Comment: Speci men Type: BLOOD SPECIMEN Ordering Facility: Address: [address] [place] [address] Performed By: #### M PO #### [facility] CLIA [id number] [address] [place] [address] 29795 WBC (Bld) [#/Vol] 7.00 10*3/uL Normal 3.70-11.00 [facility] Comment on above: Order Comment: Speci men Type: BLOOD SPECIMEN Ordering Facility: Address: [address] [place] [address] Performed By: #### M PO #### [facility] CLIA [id number] [facility] [address] [address] CNOVon 12-20-2023 CNOV Office Visit (BERNARD ) -- SAV RAYMUNDO ([id number]) 1950 M Date Time Provider Department 12/20/23 2:00 PM TITA LANDRY During your visit today, we recorded the following information about you: Temperature Respiration Weight Height 97.3 degrees 18/minute 104.8 kg 1.829 m Tita Landry APRN.ATTORNEY LAW CLERK 01/19/2024 9:56 PM Signed [facility] DEPARTMENT OF THORACIC SURGERY OUTPATIENT VISIT DATE December 20, 2023 OUTPATIENT VISIT TYPE ESTABLISHED PT NAME: Sav Raymundo CLINIC NO: [id number] THORACIC SURGEON: Ronaldo Simmons M.D. DATE OF SERVICE: 12/20/2023 PRINCIPAL DX: Pleural Effusion SURGICAL HX 11/20/2023: R VATS pleural biopsy, right mechanic assistant and doxycycline pleurodesis, right Pleurx catheter insertion, right 20Fr chest tube insertion Surgical Pathology 11/20/2023: FINAL DIAGNOSIS A. Right pleura, biopsy: - Chronic pleuritis with mesothelial hyperplasia (see comment). B. Right pleura, biopsy: - Acute organizing and chronic pleuritis (see comment). TN/ 11/22/2023 Diagnosis Comment A. The biopsy contains pleural tissue with chronic inflammation and focal reactive mesothelial hyperplasia. An immunohistochemical stain for BAP 1 shows retained nuclear expression of the mesothelial cells. B. The pleura shows areas with extensive granulation tissue associated with reactive mesenchymal mesothelial proliferation. Immunohistochemical stains were performed to exclude the possibility of mesothelial or vascular neoplasm. The mesothelial proliferation is positive for cytokeratin CAM 5.2, cytokeratin AE1/AE3, WT1, and focally for calretinin and smooth muscle actin. The cytokeratin stains do not show extension of the mesothelial proliferation into deeper adjacent tissues. All cells are negative for claudin-4. ERG highlights the vascular network of thin walled vessels arranged mostly perpendicular to the pleural surface. A BAP 1 stain shows retained nuclear expression. PU 1 highlights numerous histiocytes associated with the reactive proliferation. Drs. Della Subramanian and Zeus Hinton have also reviewed this case and agree that there is no definitive evidence of malignancy. Right pleural fluid cytology: FINAL DIAGNOSIS A - Pleural Cavity, Right, Fluid, Thoracentesis - Right pleural fluid Negative for malignant cells. Acute and chronic inflammation. The following cell blocks were associated with this case: A1 Cell Block, Alcohol Fixed ON FOR VISIT: Post-operative visit HPI: Sav Raymundo is a 73 year old male with a PmHX significant for HTN, hyperlipidemia, gout, GERD. Patient seen 07/2023 for a few months lasting cough. He had a chest CT on 08/15/23 showing moderate R pleural effusion. He had thoracentesis twice on 09/04/23 and 10/01/2023, cytology was negative both times and chemical analysis was consistent with an exudate. The right pleural effusion persists per most recent CT on 10/18/23. He also has a small to moderate pericardial effusion seen on imaging and on ECHO that was done in 09/04/23, otherwise with good cardiac function(pericardial effusion almost completely resolved on last CT). Imaging has also been consistent with small to moderate left pleural effusion that has almost completely resolved on last CT. PHYSICAL EXAM: VITAL SIGNS: Temp 36.3 ?C (97.3 ?F) (Temporal) Resp 18 Ht 182.9 cm (6') Wt 104.8 kg (231 lb) SpO2 100% BMI 31.33 kg/m? Room air BP 124/80 HR 69 Incision location: Right Thoracoport sites Incision Assessment: Well approximated and no drainage, swelling, erythema or warmth Drain/Tubes: Pleurex Catheter-dressing C/D/I GENERAL: Ill-appearing HEENT: normocephalic, midline, anicteric sclera. LUNGS: clear to auscultation, no wheezing or rhonchi HEART: RRR without murmur ABDOMEN: Distended, + anasarca EXTREMITIES: No clubbing, cyanosis, +2 BLE pitting edema MUSCULOSKELETAL: Muscular strength intact. SKIN: turgor normal, no suspicious rashes or lesions NEURO: Gait normal. Sensation grossly intact. IMAGING/TESTS: CXR 12/20/2023: PENDING INTERVAL HISTORY: Sav Raymundo presents to clinic today for postoperative visit. States he has not been doing well since last visit. Notes that he ate half of a sandwich and salad on Saturday afternoon after our visit, and became full very easily. He was then very tired and nauseated that evening, and ended up throwing up 3 times that night. Notes that he only felt slightly better after vomiting. He also reports frequent diarrhea, to the point where he is having episodes of incontinence. He took metamucil and it seems to have taken the edge off of the diarrhea. He denies any fevers, but has noted that he has been cold ever since surgery. Note (more content not included)... Normal [facility] CT ABD/PEL W IVCONon 024 CT ABD/PEL W IVCON * * *Final Report* * * DATE OF EXAM: Dec 20 2023 5:12PM [facility] 0530 - CT ABD/PEL W IVCON / PROCEDURE REASON: Nausea/vomiting * * * * Physician Interpretation * * * * RESULT: EXAMINATION: CT ABDOMEN AND PELVIS WITH IV CONTRAST CLINICAL HISTORY: Nausea and vomiting TECHNIQUE: CT of the abdomen and pelvis was performed using standard technique, scanning from just above the dome of the diaphragm to the symphysis pubis. MQ: CTAP_3 Contrast: IV: 100 ml of Omnipaque 350 CT Radiation dose: Integrated Dose-length product (DLP) for this visit = 860 mGy*cm. CT Dose Reduction Employed: Iterative recon and mAs-kVp adjusted using patient size-age COMPARISON: None. RESULT: Liver: No mass. Biliary: No bile duct dilation. Gallbladder unremarkable Spleen: No mass. No splenomegaly. Pancreas: No mass or duct dilation. Adrenals: No mass. Kidneys: Normal GI tract: No dilation or wall thickening. Colonic diverticulosis without evidence of diverticulitis. Lymph nodes: No abdominal or pelvic lymphadenopathy. Mesentery/Peritoneum: Small volume abdominal ascites Retroperitoneum: No mass. Vasculature: - Abdominal aorta and iliac arteries: Atherosclerotic calcifications without aneurysm. - Celiac and SMA: Patent without stenosis. - Portal venous system (SMV, splenic vein, portal vein and branches): Patent. - Hepatic veins: Incompletely opacified, likely due to early phase of enhancement. Pelvis: No mass, ascites or fluid collection. Bones/Soft Tissues: No significant finding. Edema in the subcutaneous tissues of the flank regions bilaterally greater on the right than on the left. This also involves the anterior abdominal wall and the upper thighs Lower thorax: Small hiatal hernia. Pleurx catheter present right hemithorax. Tiny right pleural effusion Localizer images: No additional findings. IMPRESSION: No acute intra-abdominal pathology. Small volume abdominal and pelvic ascites. Small hiatal hernia. Minute right pleural effusion. Subcutaneous edema abdominal wall, flank regions and upper thighs Transcribed Using Voice Recognition Transcribe Date/Time: Dec 20 2023 5:35P Dictated by: JOEL FRIED MD This examination was interpreted and the report reviewed and electronically signed by: JOEL FRIED MD on Dec 20 2023 5:40PM EST [id number] Normal [facility] Cholest SerPl-mCncon 024 Cholesterol [Mass/Vol] 106 mg/dL Normal <200 [facility] Comment on above: Order Comment: Alexandru campos Type: BLOOD SPECIMEN Ordering Facility: Address: [address] [place] [address] Result Comment: <200 mg/dL, Desirable 200-239 mg/dL, Borderline high >239 mg/dL, High Reference: 1. National Cholesterol Education Program ATP III Guideline At-A-Glance Quick Desk Reference: National Heart, Lung, and Blood [place]. National Institutes of Health. 2001: NIH Publication No. 01-3305. Performed By: #### 1 1572-5 #### [facility] CLIA [id number] [address] [place] [address] [place] Comprehensive metabolic 2000 panelon 12-20-2023 Albumin [Mass/Vol] 4.0 g/dL Normal 3.9-4.9 [facility] Comment on above: Order Comment: Alexandru campos Type: BLOOD SPECIMEN Ordering Facility: Address: [address] [place] [address] Performed By: #### 1 988-5, 27783-4 #### [facility] CLIA [id number] [address] [place] [address] [place] ALP [Catalytic activity/Vol] 110 U/L Normal 38-113 [facility] Comment on above: Order Comment: Speci men Type: BLOOD SPECIMEN Ordering Facility: Address: [address] [place] [address] Performed By: #### 1 988-5, 98322-2 #### [facility] CLIA [id number] [address] [place] [address] [place] ALT [Catalytic activity/Vol] 13 U/L Normal 10-54 [facility] Comment on above: Order Comment: Speci men Type: BLOOD SPECIMEN Ordering Facility: Address: [address] [place] [address] Performed By: #### 1 988-5, #### [facility] CLIA [id number] [address] [place] [address] [place] Anion gap [Moles/Vol] 12 mmol/L Normal 8-15 [facility] Comment on above: Order Comment: Speci men Type: BLOOD SPECIMEN Ordering Facility: Address: [facility] [place] [address] Performed By: #### 1 988-5, #### [facility] CLIA [id number] [address] [place] [address] [place] AST [Catalytic activity/Vol] 20 U/L Normal 14-40 [facility] Comment on above: Order Comment: Speci men Type: BLOOD SPECIMEN Ordering Facility: Address: [address] [place] [address] Performed By: #### 1 988-5, 31466-3 #### [facility] CLIA [id number] [address] [place] [address] [place] Bilirubin [Mass/Vol] 0.6 mg/dL Normal 0.2-1.3 [facility] Comment on above: Order Comment: Speci men Type: BLOOD SPECIMEN Ordering Facility: Address: [address] [place] [address] Performed By: #### 1 988-5, 05192-2 #### [facility] CLIA [id number] [address] [place] [address] [place] Calcium [Mass/Vol] 9.1 mg/dL Normal 8.5-10.2 [facility] Comment on above: Order Comment: Speci men Type: BLOOD SPECIMEN Ordering Facility: [facility] [address] [facility] [place] [address] Performed By: #### 1 988-5, #### [facility] CLIA [id number] [address] [place] [address] [place] Chloride [Moles/Vol] 105 mmol/L Normal 98-107 [facility] Comment on above: Order Comment: Speci men Type: BLOOD SPECIMEN Ordering Facility: Address: [address] [place] [address] Performed By: #### 1 988-5, #### [facility] CLIA [id number] [address] [place] [address] [place] CO2 [Moles/Vol] 20 mmol/L Low 22-30 [facility] Comment on above: Order Comment: Speci men Type: BLOOD SPECIMEN Ordering Facility: Address: [address] [facility] [place] [address] Performed By: #### 1 988-5, #### [facility] CLIA [id number] [address] [place] [address] [place] Creatinine [Mass/Vol] 1.07 mg/dL Normal 0.73-1.22 [facility] Comment on above: Order Comment: Speci men Type: BLOOD SPECIMEN Ordering Facility: Address: [address] [place] [address] Performed By: #### 1 988-5, 41558-8 #### [facility] CLIA [id number] [address] [place] [address] [place] Creatinine and Glomerular filtration rate.predicted panel (S/P/Bld) 74 mL/min/1.73m??? Normal >=60 [facility] Comment on above: Order Comment: Alexandru campos Type: BLOOD SPECIMEN Ordering Facility: Address: [address] [place] [address] Result Comment: Kristel mated Glomerular Filtration Rate (eGFR) is calculated using the 2020 CKD-EPI creatinine equation. This equation utilizes serum creatinine, sex, and age as parameters. The creatinine assay has traceable calibration to isotope dilution-mass spectrometry. Refer to KDIGO guidelines for clinical interpretation. In patients with unstable renal function, e.g. those with acute kidney injury, the eGFR may not accurately reflect actual GFR. Performed By: #### 1 988-5, 89918-3 #### [facility] CLIA [id number] [address] [place] [address] [place] Glucose [Mass/Vol] 111 mg/dL High 74-99 [facility] Comment on above: Order Comment: Alexandru campos Type: BLOOD SPECIMEN Ordering Facility: Address: [address] [place] [address] Result Comment: The [place] Diabetes Association (ADA) provides guidance for cutoff values for fasting glucose and random glucose. The ADA defines fasting as no caloric intake for at least 8 hours. Fasting plasma glucose results between 100 to 125 mg/dL indicate increased risk for diabetes (prediabetes). Fasting plasma glucose results greater than or equal to 126 mg/dL meet the criteria for diagnosis of diabetes. In the absence of unequivocal hyperglycemia, results should be confirmed by repeat testing. In a patient with classic symptoms of hyperglycemia or hyperglycemic crisis, random plasma glucose results greater than or equal to 200 mg/dL meet the criteria for diagnosis of diabetes. Reference: Standards of Medical Care in Diabetes 2016, [place] Diabetes Association. Diabetes Care. 2016.39(Suppl 1). Performed By: #### 1 988-5, 08717-6 #### [facility] CLIA [id number] [address] [place] [address] [place] Protein [Mass/Vol] 6.9 g/dL Normal 6.3-8.0 [facility] Comment on above: Order Comment: Speci men Type: BLOOD SPECIMEN Ordering Facility: Address: [address] [place] [address] Performed By: #### 1 988-5, 70944-8 #### [facility] CLIA [id number] [address] [place] Sodium [Moles/Vol] 137 mmol/L Normal 136-144 [facility] Comment on above: Order Comment: Speci men Type: BLOOD SPECIMEN Ordering Facility: Address: [address] [place] [address] Performed By: #### 1 988-5, 26903-1 #### [facility] CLIA [id number] [address] [place] [address] [place] Urea nitrogen [Mass/Vol] 15 mg/dL Normal 9-24 [facility] Comment on above: Order Comment: Speci men Type: BLOOD SPECIMEN Ordering Facility: Address: [address] [place] [address] Performed By: #### 1 988-5, 14432-9 #### [facility] CLIA [id number] [address] [place] ECG COMPLETEon 12-20-2023 ECG COMPLETE Ventricular Rate : 8 3 BPM Atrial Rate : 83 BPM P-R Interval : 184 ms QRS Duration : 80 ms Q-T Interval : 348 ms QTC Calculation(Bazett) : 408 ms Calculated P Wanette : 78 degrees Calculated R Wanette : 3 degrees Calculated T Wanette : 230 degrees POOR DATA QUALITY, INTERPRETATION MAY BE ADVERSELY AFFECTED NORMAL SINUS RHYTHM NONSPECIFIC T WAVE ABNORMALITY ABNORMAL ECG NO PREVIOUS ECGS AVAILABLE NO STEMI CONFIRMED 2057 Confirmed by RAFAEL BECERRIL, MERLYN ([id number]), editor news ROLANDO SPAULDING ([id number]) on 12/21/2023 8:32:15 AM NAME : SAV RAYMUNDO PID : [id number] : 1950 Gender : Male Race : ORD : [id number] Procedure Date : Dec 20 2023 19:12:11 Edit Date : Dec 21 2023 08:32:16 Diagnosis: POOR DATA QUALITY, INTERPRETATION MAY BE ADVERSELY AFFECTED NORMAL SINUS RHYTHM NONSPECIFIC T WAVE ABNORMALITY ABNORMAL ECG NO PREVIOUS ECGS AVAILABLE NO STEMI CONFIRMED 2057 Confirmed by MERLYN HALL MD ([id number]), editor news ROLANDO SPAULDING ([id number]) on 12/21/2023 8:32:15 AM Test Reason : Chest Pain Location : 26 : ER L ED Overread By : MERLYN HALL MD Edited By : ROLANDO SPAULDING Referred By : , Acquired by : , [facility] ED NOTEon 12-20-2023 ED NOTE HNO ID: [id number] Author: CHARLIE DONNELLY RN Service: ? Author Type: Registered Nurse Type: ED Notes Filed: 12/20/2023 18:48 Note Text: Bed: ED-25 Expected date: Expected time: Means of arrival: Comments: triage [facility] ED NOTE HNO ID: [id number] Author: KEVIN HINSON RN Service: ? Author Type: Registered Nurse Type: ED Notes Filed: 12/20/2023 14:59 Note Text: Pt arrives to ED from appointment. Pt reported had l pleural effusion done today. Reportedly gets drained multiple times per week. Pt has had incread n/v/d x1 week. Abdominal area is distended according to HAIR COLORIST. Pt is AANDOx3 and ambulatory [facility] ED PROV NOTEon 12-20-2023 ED PROV NOTE HNO ID: [id number] Author: MERLYN HALL DO Service: Emergency Medicine Author Type: Physician Type: ED Provider Notes Filed: 12/20/2023 23:33 Note Text: ED Provider Note Patient Name: Sav Raymundo : 1950 SERVICE DATE: 12/20/23 History No chief complaint on file. The patient is a 73-year-old male who presents to the ED to be evaluated for lower extremity and abdominal swelling. He states that he has had persistent and worsening swelling over the past 1 to 2 months and seems to have started when he developed a spontaneous pleural effusion. At this time he is draining nearly 1 L of pleural fluid 3 times weekly and following closely with the thoracic surgery team. The etiology of the pleural effusion is unclear at this time. He has been on diuretics but he continues to have edema develop in the legs and abdomen. No prior cardiac or renal history. Was seen in the thoracic surgery office today and sent to the ED for further evaluation. History provided by: Patient and spouse PAST MEDICAL HISTORY Diagnosis Date GERD (gastroesophageal reflux disease) History of basal cell cancer left shoulder Mixed hyperlipidemia Osteoarthritis of multiple joints Pleural effusion, right s/p Thoracentesis 10/01/23 = 520 cc, 625 cc PAST SURGICAL HISTORY Procedure Laterality Date ANESTH OPEN/SURG ARTHRS TOTAL KNEE ARTHROPLASTY Left 08/23/2014 ARTHROSCOPY KNEE DIAGNOSTIC W/WO SYNOVIAL BX SPX Left 2010 ORTHOPEDIC SURGERY HX Right Hand PAST SURGICAL HISTORY OF Left 11/2014 Shoulder -BASAL CELL CARCINOMA EXCISION TOTAL KNEE REPLACEMENT Right 06/25/2016 FAMILY HISTORY Problem Relation Age of Onset Heart Father Social History Tobacco Use Smoking status: Never Smokeless tobacco: Never Substance and Sexual Activity Alcohol use: Not on file Drug use: Not on file Sexual activity: Not on file ALLERGIES Allergen Reactions Tramadol Mental Status Change Review of Systems Constitutional: Negative for chills and fever. HENT: Negative for congestion and sore throat. Eyes: Negative for visual disturbance. Respiratory: Negative for cough and shortness of breath. Cardiovascular: Positive for leg swelling. Negative for chest pain. Gastrointestinal: Positive for abdominal distention, diarrhea, nausea and vomiting. Negative for abdominal pain and constipation. Genitourinary: Negative for dysuria and hematuria. Musculoskeletal: Negative for arthralgias and myalgias. Skin: Negative for rash. Neurological: Negative for dizziness and headaches. Hematological: Negative for adenopathy. Physical Exam Vitals [12/20/23 1456] BP Pulse Temp Temp src Resp SpO2 Weight Height 136/78 70 36.4 ?C (97.5 ?F) -- 19 100 % 104.3 kg (230 lb) -- Physical Exam Vitals and nursing note reviewed. Constitutional: General: He is not in acute distress. Appearance: Normal appearance. He is not ill-appearing or toxic-appearing. HENT: Head: Normocephalic and atraumatic. Cardiovascular: Rate and Rhythm: Normal rate and regular rhythm. Pulmonary: Effort: Pulmonary effort is normal. No respiratory distress. Breath sounds: Normal breath sounds. No wheezing, rhonchi or rales. Abdominal: General: Abdomen is flat. There is distension. Palpations: Abdomen is soft. Tenderness: There is no abdominal tenderness. There is no right CVA tenderness, left CVA tenderness, guarding or rebound. Musculoskeletal: Right lower leg: Edema present. Left lower leg: Edema present. Skin: Findings: No erythema, lesion or rash. Comments: Diffuse anasarca, pitting edema from the feet to the mid abdomen. No skin color changes. Neurological: General: No focal deficit present. Mental Status: He is alert and oriented to person, place, and time. Diagnostic Testing ED Labs Ordered and Reviewed COMPREHENSIVE METABOLIC PANEL - Abnormal; Notable for the following components: Result Value Ref Range Glucose 111 (*) 74 - 99 mg/dL CO2 20 (*) 22 - 30 mmol/L All other components within normal limits HIGH SENSITIVITY TROPONIN T (INITIAL) - Abnormal; Notable for the following components: HELIO High Sensitivity 13 (*) <12 ng/L All other components within normal limits COMPLETE BLOOD COUNT AND DIFFERENTIAL - Abnormal; Notable for the following components: Hemoglobin 12.7 (*) 13.0 - 17.0 g/dL RDW-CV 15.3 (*) 11.5 - 15.0 % All other components within normal limits VENOUS BLOOD GASES - Abnormal; Notable for the following components: pO2, Venous <31 (*) 35 - 45 mmHg O2 Saturation, Venous 30 (*) 60 - 85 % Bicarbonate, Venous 23 (*) 24 - 28 mmol/L Oxyhemoglobin, Venous 29 (*) 60 - 85 % Chloride, Whole Blood 111 (*) 97 - 105 mmol/L Glucose, Whole Blood 112 (*) 60 - 105 mg/dL Hemoglobin, Whole Blood 12.9 (*) 13.0 - 17.0 g/dL All other components within normal limits HIGH SENSITIVITY TROPONIN T (SECOND) - Abnormal; Notable for the following components: HELIO High Sen (more content not included)... Normal [facility] ED Triage Noteon 12-20-2023 ED Triage Note HNO ID: [id number] Author: RAFAELA BATISTA MD Service: Emergency Medicine Author Type: Physician Type: ED Triage Notes Filed: 12/20/2023 15:01 Note Text: ED TRIAGE PROVIDER NOTE Patient Name: Sav Raymundo Service Date: 12/20/23 BRIEF HPI: This is a 73 year old male who presents to the ED with: Abdominal pain, nausea, vomiting. Was sent in by cardiothoracic team after they took nearly 1 L off his Pleurx catheter due to recurrent pleural effusions. They are concerned about something else going on in his abdomen. BRIEF EXAM: NAD Awake and Alert Non labored breathing Abdominal distention noted without pain to palpation INITIAL WORKUP AND DECISION MAKING: Orders Placed This Encounter CT ABD/PEL W IVCON XR CHEST 1V FRONTAL PORT COMPREHENSIVE METABOLIC PANEL (BMP+LFT) MAGNESIUM BLOOD LIPASE BLOOD High Sensitivity Troponin T with Reflex for ED Chest Pain CBC + AUTO DIFF Urinalysis w Microscopic, reflex Culture VENOUS BLOOD GAS iv contrast (radiology procedure) ECG COMPLETE SIGNATURE: Rafaela Batista MD Normal [facility] Gas + CO Pnl BldVon 12-20-19 24 Potassium [Moles/Vol] 4.6 mmol/L Normal 3.7-5.1 [facility] Comment on above: Order Comment: Speci men Type: BLOOD SPECIMEN Ordering Facility: Address: [address] [place] [address] Performed By: #### M PO #### [facility] CLIA [id number] [address] [place] [address] Performed By: #### 1 988-5, 02468-4 #### [facility] CLIA [id number] [address] [place] [address] [place] Gas and Carbon monoxide pane l (BldV)on 12-20-2023 BASE DEFICIT, VENOUS -2 mmol/L Normal -2-0 [facility] Comment on above: Order Comment: Speci men Type: BLOOD SPECIMEN Ordering Facility: Address: [address] [place] [address] Performed By: #### M PO #### [facility] CLIA [id number] [address] [place] [address] Body temperature 98.6 [degF] Normal [facility] Comment on above: Order Comment: Speci men Type: BLOOD SPECIMEN Ordering Facility: Address: [address] [place] [address] Performed By: #### M PO #### [facility] CLIA [id number] [address] [place] [address] Calcium.ionized (Bld) [Mass/Vol] 1.22 mmol/L Normal 1.08-1.30 [facility] Comment on above: Order Comment: Speci men Type: BLOOD SPECIMEN Ordering Facility: Address: [address] [place] [address] Performed By: #### M PO #### [facility] CLIA [id number] [address] [place] [address] Carboxyhemoglobin (BldV) [Mass fraction] <1.0 Normal 0.0-2.0 [facility] Comment on above: Order Comment: Speci men Type: BLOOD SPECIMEN Ordering Facility: Address: [address] [place], [place] [address] Result Comment: Carb oxyhemoglobin Reference Range for Smokers: 2.0-8.0% Performed By: #### M PO #### [facility] CLIA [id number] [address] [place] [address] Chloride [Moles/Vol] 111 mmol/L High 97-105 [facility] Comment on above: Order Comment: Speci men Type: BLOOD SPECIMEN Ordering Facility: Address: [address] [place] [address] Performed By: #### M PO #### [facility] CLIA [id number] [address] [place] [address] CO2 (BldV) [Partial pressure] 44 mm[Hg] Normal 42-55 [facility] Comment on above: Order Comment: Speci men Type: BLOOD SPECIMEN Ordering Facility: Address: [address] [place] [address] Performed By: #### M PO #### [facility] CLIA [id number] [address] [place] [address] Glucose [Mass/Vol] 112 mg/dL High 60-105 [facility] Comment on above: Order Comment: Speci men Type: BLOOD SPECIMEN Ordering Facility: Address: [address] [place] [address] Performed By: #### M PO #### [facility] CLIA [id number] [address] [place] [address]2694 HCO3 (Bld) [Moles/Vol] 23 mmol/L Low 24-28 [facility] Comment on above: Order Comment: Speci men Type: BLOOD SPECIMEN Ordering Facility: Address: [address] [place] [id number] Performed By: #### M PO #### [facility] CLIA [id number] [address] [place] [address] Hematocrit (Bld) [Volume fraction] 39.6 % Normal 39.0-51.0 [facility] Comment on above: Order Comment: Speci men Type: BLOOD SPECIMEN Ordering Facility: Address: [address] [place] [address] Performed By: #### M PO #### [facility] CLIA [id number] [address] [place], [place] [address] Hemoglobin (Bld) [Mass/Vol] 12.9 g/dL Low 13.0-17.0 [facility] Comment on above: Order Comment: Speci men Type: BLOOD SPECIMEN Ordering Facility: Address: [address] [place] [address] Performed By: #### M PO #### [facility] CLIA [id number] [address] [place], [place] [address] Lactate [Moles/Vol] 0.9 mmol/L Normal 0.5-2.2 [facility] Comment on above: Order Comment: Speci men Type: BLOOD SPECIMEN Ordering Facility: Address: [address] [place] [address] Performed By: #### M PO #### [facility] CLIA [id number] [address] [place] [address] Methemoglobin (Bld) [Mass fraction] % Normal 0.0-1.5 [facility] Comment on above: Order Comment: Speci men Type: BLOOD SPECIMEN Ordering Facility: Address: [address] [place] [address] Performed By: #### M PO #### [facility] CLIA [id number] [address] [place] [address] O2 THERAPY RA=Room Air Normal [facility] Comment on above: Order Comment: Speci men Type: BLOOD SPECIMEN Ordering Facility: Address: [address] [place] [address] Performed By: #### M PO #### [facility] CLIA [id number] [address] [place] [address] Oxygen (BldV) [Partial pressure] mm[Hg] Low 35-45 [facility] Comment on above: Order Comment: Speci men Type: BLOOD SPECIMEN Ordering Facility: Address: [address] [place], [place] [address] Performed By: #### M PO #### [facility] CLIA [id number] [address] [place] [address] Oxygen saturation in Venous blood 30 % Low 60-85 [facility] Comment on above: Order Comment: Speci men Type: BLOOD SPECIMEN Ordering Facility: Address: [address] [place] [address] Performed By: #### M PO #### [facility] CLIA [id number] [address] [place] [address]11 Oxyhemoglobin (BldV) [Mass fraction] 29 % Low 60-85 [facility] Comment on above: Order Comment: Speci men Type: BLOOD SPECIMEN Ordering Facility: Address: [address] [place] [address] Performed By: #### M PO #### [facility] CLIA [id number] [address] [place] [address] pH (BldV) 7.34 [pH] Normal 7.32-7.42 [facility] Comment on above: Order Comment: Speci men Type: BLOOD SPECIMEN Ordering Facility: Address: [address] [place] [address] Performed By: #### M PO #### [facility] CLIA [id number] [address] [place] [address] Sodium [Moles/Vol] 138 mmol/L Normal 136-144 [facility] Comment on above: Order Comment: Speci men Type: BLOOD SPECIMEN Ordering Facility: Address: [address] [place] [address] Performed By: #### M PO #### [facility] CLIA [id number] [address] [place] [address] [place] [address] HIGH SENSITIVITY TROPONIN T (INITIAL)on 12-20-2023 Troponin T.cardiac High sensitivity method [Mass/Vol] 13 ng/L High <12 [facility] Comment on above: Order Comment: Antonellai men Type: BLOOD SPECIMEN Ordering Facility: Address: [address] [place] [address] Performed By: #### 1 988-5, 70824-9 #### [facility] CLIA [id number] [address] [place] [address] [place] HIGH SENSITIVITY TROPONIN T (SECOND)on 12-20-2023 Troponin T.cardiac High sensitivity method [Mass/Vol] 12 ng/L High <12 [facility] Comment on above: Order Comment: Antonellai men Type: BLOOD SPECIMEN Ordering Facility: Address: [address] [place] [address] Performed By: #### 1 988-5, 61719-3 #### [facility] CLIA [id number] [address] [place] [address] [place] HIGH SENSITIVITY TROPONIN T (THIRD) 3 HRS AFTER INITIALon 12-20-2023 Troponin T.cardiac High sensitivity method [Mass/Vol] 11 ng/L Normal <12 [facility] Comment on above: Order Comment: Alexandru campos Type: BLOOD SPECIMEN Ordering Facility: Address: [address] [place] [address] Performed By: #### 1 1572-5 #### [facility] CLIA [id number] [address] [place] [address] [place] [address] [place] HISTORY PHYSICALon HISTORY PHYSICAL HNO ID: [id number] Author: ALPA OLIVA APRN.ATTORNEY LAW CLERK Service: General Internal Medicine Author Type: Nurse Practitioner Type: H&P Filed: 12/21/2023 01:49 Note Text: -- Summary: Admission Note -- HISTORY AND PHYSICAL EXAMINATION SERVICE DATE: 12/20/2023 SERVICE TIME: 8:54 PM Code Status: Full Code PRIMARY CARE PHYSICIAN: Yuli Mariscal DO ADMISSION DIAGNOSIS: Anasarca Subjective CHIEF COMPLAINT: leg edema/anasarca Assessment/Plan Principal Problem: Anasarca Recurrent pleural effusion - recurrent R pleural effusions-status post RVAD 6 5 with now Pleurx cathete-recurrent etiology unknown, effusions have been exudative with negative malignant cells -Continue to drain Pleurx catheter MWF - no malignant cells, NM stress test done and no concern for HF (EF 67%), UA does not suggest nephrotic eiology -Will obtain right upper quadrant ultrasound to ensure no abnormal morphology and liver despite normal LFTs (ie hepatic hydrothorax as etiology) - add on triglycerides and cholesterol ( r/o chylothroax) - other etiology for recurrent exudative effusions include: Adrienne's, amyloidosis, chylothorax, autoimmune issue such as sarcoid or RA, connective tissue diseases or parasites - ? If we need Rheumatology input- will defer to primary to consult Hypertension -Losartan 25 mg-this was switched from metoprolol 25 twice daily due to side effects and was supposed to start tomorrow -Metoprolol will be taken out of med list and held while here Gout -Continue allopurinol 300 GERD - cont PPI HPI: This is a 73 year old male with recurrent pleural effusions of unknown etiology status post an R VATS 6 5 and pleurodesis with right Pleurx catheter placement, hypertension, hyperlipidemia, gout and acid reflux who presents to the ER after visiting his cardiothoracic surgeon for further evaluation on recurrent fluid buildup. Patient has had recurrent pleural effusions which led to a R VATS and R Pleurx catheter placement on 11/19. He has been followed with cardiothoracic surgery. His recurrent effusions have been exudative with negative malignancy cells. He continues to have significant output in drains every Saturdayday Saturday with approximately 2 to 3 L output. He reports that his output has been consistent without any change from baseline. He has had progressive leg swelling. He did try Lasix outpatient for 5 days without much improvement. During ER evaluation chemistries were clinically insignificant. HST's were flat normal at 13-12-11. CBC was clinically insignificant. Chest x-ray was negative. CT A/P showed no acute intra-abdominal pathology and small volume abdominal and pelvic ascites. There is subcu edema in the abdominal wall FUNCTIONAL STATUS: Independent PAST MEDICAL HISTORY Diagnosis Date GERD (gastroesophageal reflux disease) History of basal cell cancer left shoulder Mixed hyperlipidemia Osteoarthritis of multiple joints Pleural effusion, right s/p Thoracentesis 10/01/23 = 520 cc, 625 cc PAST SURGICAL HISTORY Procedure Laterality Date ANESTH OPEN/SURG ARTHRS TOTAL KNEE ARTHROPLASTY Left 08/23/2014 ARTHROSCOPY KNEE DIAGNOSTIC W/WO SYNOVIAL BX SPX Left 2010 ORTHOPEDIC SURGERY HX Right Hand PAST SURGICAL HISTORY OF Left 11/2014 Shoulder -BASAL CELL CARCINOMA EXCISION TOTAL KNEE REPLACEMENT Right 06/25/2016 FAMILY HISTORY Problem Relation Age of Onset Heart Father Social History Tobacco Use Smoking status: Never Smokeless tobacco: Never No current facility-administered medications on file prior to encounter. Current Outpatient Medications on File Prior to Encounter Medication Sig furosemide (LASIX) 20 mg tablet Take 1 tablet by mouth once daily for 5 days.- not taking any more acetaminophen (TYLENOL) 500 mg tablet Take 2 tablets by mouth every 6 hours. [START ON 12/23/2023] losartan (COZAAR) 25 mg tablet Take 1 tablet by mouth once daily. Patient should start on December 23, 2023. metoprolol tartrate, short acting, (LOPRESSOR) 25 mg tablet Take 1 tablet by mouth every 12 hours. Metoprolol was prescribed to prevent atrial fibrillation after thoracic surgery. Stop this medication after 30 days. Nebulizer and Compressor For Neb (INNOSPIRE ESSENCE) 1 Each four times daily. ipratropium-albuterol (DUONEB) 0.5 mg-3 mg(2.5 mg base)/3 mL nebu Inhale 3 mL as instructed every 6 hours as needed for wheezing/shortness of breath. allopurinol (ZYLOPRIM) 300 mg tablet Take 300 mg by mouth once daily. atorvastatin (LIPITOR) 10 mg tablet Take 1 tablet by mouth once daily. omeprazole (PRILOSEC) 20 mg capsule Take 20 mg by mouth once daily. Confirmed with the patient ALLERGIES Allergen Reactions Tramadol Mental Status Change COMPLETE REVIEW OF SYSTEMS: GENERAL: Negative for malaise, (more content not included)... Normal [facility] Lipase SerPl-cCncon 12-20-19 24 Lipase [Catalytic activity/Vol] 40 U/L Normal 16-61 [facility] Comment on above: Order Comment: Speci men Type: BLOOD SPECIMEN Ordering Facility: Address: [address] [place] [address] Performed By: #### 1 988-5, 69199-9 #### [facility] CLIA [id number] [address] [place] [address] [place] Magnesium SerPl-mCncon 12-19 Magnesium [Mass/Vol] 2.1 mg/dL Normal 1.7-2.3 [facility] Comment on above: Order Comment: Speci men Type: BLOOD SPECIMEN Ordering Facility: Address: [address] [place] [address] Performed By: #### 1 988-5, 79008-1 #### [facility] CLIA [id number] [address] [place] [address] [place] NT-proBNP SerPl-mCncon 12-19 Natriuretic peptide.B prohormone N-Terminal [Mass/Vol] 464 pg/mL High <125 [facility] Comment on above: Order Comment: Speci men Type: BLOOD SPECIMEN Ordering Facility: Address: [address] [place] [address] Performed By: #### 1 988-5, 23098-1 #### [facility] CLIA [id number] [address] [place] [address] [place] Trigl SerPl-mCncon 07-05-202 4 Triglyceride [Mass/Vol] 86 mg/dL Normal <150 [facility] Comment on above: Order Comment: Speci men Type: BLOOD SPECIMEN Ordering Facility: Address: [address] [place] [address] Result Comment: <150 mg/dL, Normal 150-199 mg/dL, Borderline high 200-499 mg/dL, High >499 mg/dL, Very high Reference: 1. National Cholesterol Education Program ATP III Guideline At-A-Glance Quick Desk Reference: National Heart, Lung, and Blood [place]. National Institutes of Health. 2001: NIH Publication No. 01-3305. Performed By: #### 1 1572-5 #### [facility] CLIA [id number] [address] [place] [address] [place] Triglyceride [Mass/Vol]on FASTING TIME Unknown\X09\ Normal [facility] Comment on above: Order Comment: Speci men Type: BLOOD SPECIMEN Ordering Facility: Address: [address] [place] [address] Performed By: #### 1 1572-5 #### [facility] CLIA [id number] [address] [place] [address] [place] Urinalysis complete panel (U )on 12-20-2023 Bilirubin Ql (U) Negative Normal Negative [facility] Comment on above: Order Comment: Speci men Type: URINE SPECIMEN Ordering Facility: Address: [address] [place] [address] Performed By: #### 2 4356-8 #### [facility] CLIA [id number] [address] [place] [address] [place] Clarity (Unsp spec) Clear Normal Clear [facility] Comment on above: Order Comment: Speci men Type: URINE SPECIMEN Ordering Facility: Address: [address] [place] [address] Performed By: #### 2 4356-8 #### [facility] CLIA [id number] [address] [place] [address] [place] Color (U) Yellow Normal Yellow [facility] Comment on above: Order Comment: Speci men Type: URINE SPECIMEN Ordering Facility: Address: [address] [place] [address] Performed By: #### 2 4356-8 #### [facility] CLIA [id number] [address] [place] [address] [place] Epithelial cells LM.HPF (Urine sed) [#/Area] Moderate Normal [facility] Comment on above: Order Comment: Speci men Type: URINE SPECIMEN Ordering Facility: Address: [address] [place] [address] Performed By: #### 2 4356-8 #### [facility] CLIA [id number] [address] [place] [address] [place] Glucose Test strip (U) [Mass/Vol] Negative Normal Trace, Negative [facility] Comment on above: Order Comment: Speci men Type: URINE SPECIMEN Ordering Facility: Address: [address] [place] [address] Performed By: #### 2 4356-8 #### [facility] CLIA [id number] [address] [place] [address] [place] Hemoglobin Ql (U) Negative Normal Negative, Trace [facility] Comment on above: Order Comment: Speci men Type: URINE SPECIMEN Ordering Facility: Address: [address] [place] [address] Performed By: #### 2 4356-8 #### [facility] CLIA [id number] [address] [place] [address] [place] Ketones Ql (U) Negative Normal Negative, Trace [facility] Comment on above: Order Comment: Speci men Type: URINE SPECIMEN Ordering Facility: Address: [address] [place] [address] Performed By: #### 2 4356-8 #### [facility] CLIA [id number] [address] [place] [address] [place] Leukocyte esterase Test strip Ql (U) Negative Normal Negative, 25 Francisco/uL [facility] Comment on above: Order Comment: Speci men Type: URINE SPECIMEN Ordering Facility: Address: [address] [place] [address] Performed By: #### 2 4356-8 #### [facility] CLIA [id number] [address] [place] [address] [place] Nitrite Ql (U) Negative Normal Negative [facility] Comment on above: Order Comment: Speci men Type: URINE SPECIMEN Ordering Facility: Address: [address] [place] [address] Performed By: #### 2 4356-8 #### [facility] CLIA [id number] [address] [place] [address] [place] pH (U) 6.0 [pH] Normal 5.0-8.0 [facility] Comment on above: Order Comment: Speci men Type: URINE SPECIMEN Ordering Facility: Address: [address] [place] [address] Performed By: #### 2 4356-8 #### [facility] CLIA [id number] [address] [place] [address] [place] Protein (U) [Mass/Vol] Trace Normal Trace , Negative [facility] Comment on above: Order Comment: Speci men Type: URINE SPECIMEN Ordering Facility: Address: [address] [place] [address] Performed By: #### 2 4356-8 #### [facility] CLIA [id number] [address] [place] [address] [place] RBC LM.HPF (Urine sed) [#/Area] 0-3 /HPF Normal 0-3 /HPF [facility] Comment on above: Order Comment: Speci men Type: URINE SPECIMEN Ordering Facility: Address: [address] [place] [address] Performed By: #### 2 4356-8 #### [facility] CLIA [id number] [address] [place] [address] [place] Specific gravity (U) [Rel density] 1.023 Normal 1.005-1.030 [facility] Comment on above: Order Comment: Speci men Type: URINE SPECIMEN Ordering Facility: Address: [address] [place] [address] Performed By: #### 2 4356-8 #### [facility] CLIA [id number] [address] [place] [address] [place] Urobilinogen Ql (U) Normal Normal Normal [facility] Comment on above: Order Comment: Speci men Type: URINE SPECIMEN Ordering Facility: Address: [address] [place] [address] Performed By: #### 2 4356-8 #### [facility] CLIA [id number] [address] [place] [address] [place] WBC LM.HPF (Urine sed) [#/Area] 0-5 /HPF Normal 0-5 /HPF [facility] Comment on above: Order Comment: Speci men Type: URINE SPECIMEN Ordering Facility: Address: [address] [place] [place] [address] Performed By: #### 2 [id number] #### [facility] CLIA [id number] [address] [place] [address] [place] XR CHEST 1V FRONTAL PORTon 0 12-20-2023 XR CHEST 1V FRONTAL PORT * * *Final Report* * * DATE OF EXAM: Dec 20 2023 3:12PM HCX 5376 - XR CHEST 1V FRONTAL PORT / PROCEDURE REASON: Shortness of breath * * * * Physician Interpretation * * * * RESULT: EXAMINATION: XR CHEST 1V FRONTAL PORT CLINICAL HISTORY: Shortness of breath Comparison: Radiograph obtained earlier same day. RESULT: The cardiomediastinal silhouette is not enlarged. Right intercostal thoracostomy tube and blunting right costophrenic angle redemonstrated not significantly changed from prior. No discernible pneumothorax. IMPRESSION: No significant interval change. Transcribed Using Voice Recognition Transcribe Date/Time: Dec 20 2023 4:01P Dictated by: HOLLIS BANEGAS MD This examination was interpreted and the report reviewed and electronically signed by: HOLLIS BANEGAS MD on Dec 20 2023 4:14PM EST [id number] [facility] XR CHEST 2V FRONTAL/LATon XR CHEST 2V FRONTAL/LAT * * *Final Report* * * DATE OF EXAM: Dec 20 2023 1:13PM HCX 5291 - XR CHEST 2V FRONTAL/LAT / PROCEDURE REASON: Pleural effusion * * * * Physician Interpretation * * * * RESULT: EXAMINATION: CHEST RADIOGRAPH (2 VIEW FRONTAL and LATERAL) CLINICAL HISTORY: Pleural effusion MQ: XC2_6 EXAM DATE/TIME: 12/20/2023 1:13 PM COMPARISON: 12/13/2023. RESULT: Lines, tubes, and devices: A right chest tube remains in place. Lungs and pleura: There is a persistent small right pleural effusion. There are atelectatic changes in the right lung base. There is a vague focal opacity in the right mid chest probably representing loculation of pleural fluid. A follow-up exam is recommended. Cardiomediastinal silhouette: Stable cardiomediastinal silhouette. Bones and soft tissues: Unremarkable. IMPRESSION: Stable exam with a persistent right pleural effusion. Transcribed Using Voice Recognition Transcribe Date/Time: Dec 21 2023 10:02A Dictated by: JEFFREY KRUEGER MD This examination was interpreted and the report reviewed and electronically signed by: JEFFREY KRUEGER MD on Dec 21 2023 10:03AM EST [id number] [facility] XR Chest PA and Lateralon Radiology Study observation (narrative) [facility] CNPNon 12-17-2023 CNPN Normal [facility] XR Chest PA and Lateralon IMPRESSION: Slight increase of the small right pleural effusion. A follow-up exam is recommended. Transcribed Using Voice Recognition Transcribe Date/Time: Dec 14 2023 1:14P Dictated by: JEFFREY KRUEGER MD This examination was interpreted and the report reviewed and electronically signed by: JEFFREY KRUEGER MD on Dec 14 2023 1:15PM EST [facility] * * *Final Report* * * DATE OF EXAM: Dec 13 2023 1:18PM HCX 5291 - XR CHEST 2V FRONTAL/LAT / PROCEDURE REASON: Pleural effusion * * * * Physician Interpretation * * * * RESULT: EXAMINATION: CHEST RADIOGRAPH (2 VIEW FRONTAL & LATERAL) CLINICAL HISTORY: Pleural effusion MQ: XC2_6 EXAM DATE/TIME: 12/13/2023 1:18 PM COMPARISON: 12/03/2023. RESULT: Lines, tubes, and devices: A right chest tube remains in place. Lungs and pleura: No consolidation. No lung mass. There is a small right pleural effusion which has minimally increased in size since the prior exam. No pneumothorax. Cardiomediastinal silhouette: Normal cardiomediastinal silhouette. Bones and soft tissues: Unremarkable. [facility] Provider, Migel Valle [place] - 12/14/2023 * * *Final Report* * * DATE OF EXAM: Dec 13 2023 1:18PM HCX 5291 - XR CHEST 2V FRONTAL/LAT / PROCEDURE REASON: Pleural effusion * * * * Physician Interpretation * * * * RESULT: EXAMINATION: CHEST RADIOGRAPH (2 VIEW FRONTAL & LATERAL) CLINICAL HISTORY: Pleural effusion MQ: XC2_6 EXAM DATE/TIME: 12/13/2023 1:18 PM COMPARISON: 12/03/2023. RESULT: Lines, tubes, and devices: A right chest tube remains in place. Lungs and pleura: No consolidation. No lung mass. There is a small right pleural effusion which has minimally increased in size since the prior exam. No pneumothorax. Cardiomediastinal silhouette: Normal cardiomediastinal silhouette. Bones and soft tissues: Unremarkable. IMPRESSION IMPRESSION: Slight increase of the small right pleural effusion. A follow-up exam is recommended. Transcribed Using Voice Recognition Transcribe Date/Time: Dec 14 2023 1:14P Dictated by: JEFFREY KRUEGER MD This examination was interpreted and the report reviewed and electronically signed by: JEFFREY KRUEGER MD on Dec 14 2023 1:15PM EST [facility] XR Chest PA and LateralOrder ed By: [facility] Provider on 12-14-2023 [facility] CNOVon 12-13-2023 CNOV Office Visit ([facility] ) -- SAV RAYMUNDO ([id number]) 1950 M Date Time Provider Department 12/13/23 2:00 PM TITA LANDRY During your visit today, we recorded the following information about you: Temperature Pulse Respiration Blood pressure 97.3 degrees 68/minute 16/minute 129/80 Weight Height 104 kg 1.829 m Tita Landry, SOFTWARE TOOLS DEVELOPER.ATTORNEY LAW CLERK 01/16/2024 10:44 PM Signed [facility] [place] DEPARTMENT OF THORACIC SURGERY OUTPATIENT VISIT DATE December 13, 2023 OUTPATIENT VISIT TYPE ESTABLISHED PT NAME: Sav Raymundo CLINIC NO: [id number] THORACIC SURGEON: Ronaldo Simmons M.D. DATE OF SERVICE: 12/13/2023 PRINCIPAL DX: Pleural Effusion SURGICAL HX 11/20/2023: R VATS pleural biopsy, right mechanic assistant and doxycycline pleurodesis, right Pleurx catheter insertion, right 20Fr chest tube insertion Surgical Pathology 11/20/2023: FINAL DIAGNOSIS A. Right pleura, biopsy: - Chronic pleuritis with mesothelial hyperplasia (see comment). B. Right pleura, biopsy: - Acute organizing and chronic pleuritis (see comment). TN/ 11/22/2023 Diagnosis Comment A. The biopsy contains pleural tissue with chronic inflammation and focal reactive mesothelial hyperplasia. An immunohistochemical stain for BAP 1 shows retained nuclear expression of the mesothelial cells. B. The pleura shows areas with extensive granulation tissue associated with reactive mesenchymal mesothelial proliferation. Immunohistochemical stains were performed to exclude the possibility of mesothelial or vascular neoplasm. The mesothelial proliferation is positive for cytokeratin CAM 5.2, cytokeratin AE1/AE3, WT1, and focally for calretinin and smooth muscle actin. The cytokeratin stains do not show extension of the mesothelial proliferation into deeper adjacent tissues. All cells are negative for claudin-4. ERG highlights the vascular network of thin walled vessels arranged mostly perpendicular to the pleural surface. A BAP 1 stain shows retained nuclear expression. PU 1 highlights numerous histiocytes associated with the reactive proliferation. Drs. Della Subramanian and Zeus Hinton have also reviewed this case and agree that there is no definitive evidence of malignancy. Right pleural fluid cytology: FINAL DIAGNOSIS A - Pleural Cavity, Right, Fluid, Thoracentesis - Right pleural fluid Negative for malignant cells. Acute and chronic inflammation. The following cell blocks were associated with this case: A1 Cell Block, Alcohol Fixed ON FOR VISIT: Post-operative visit HPI: Sav Raymundo is a 73 year old male with a PmHX significant for HTN, hyperlipidemia, gout, GERD. Patient seen 07/2023 for a few months lasting cough. He had a chest CT on 08/15/23 showing moderate R pleural effusion. He had thoracentesis twice on 09/04/23 and 10/01/2023, cytology was negative both times and chemical analysis was consistent with an exudate. The right pleural effusion persists per most recent CT on 10/18/23. He also has a small to moderate pericardial effusion seen on imaging and on ECHO that was done in 09/04/23, otherwise with good cardiac function(pericardial effusion almost completely resolved on last CT). Imaging has also been consistent with small to moderate left pleural effusion that has almost completely resolved on last CT. PHYSICAL EXAM: VITAL SIGNS: BP 129/80 (BP Site: Left Arm, BP Position: Sitting, BP Cuff Size: Regular Adult) Pulse 68 Temp 36.3 ?C (97.3 ?F) (Temporal) Resp 16 Ht 182.9 cm (6') Wt 104 kg (229 lb 4.8 oz) SpO2 99% BMI 31.10 kg/m? Room air Incision location: Right Thoracoport sites Incision Assessment: Well approximated and no drainage, swelling, erythema or warmth Drain/Tubes: Pleurex Catheter GENERAL: well appearing, alert, no acute distress, well-hydrated, well nourished HEENT: normocephalic, midline, anicteric sclera. LUNGS: clear to auscultation with the exception of diminished right lower lung field HEART: RRR without murmur ABDOMEN: Soft, non-tender, non distended. No masses EXTREMITIES: No clubbing, cyanosis or edema. MUSCULOSKELETAL: Muscular strength intact. SKIN: turgor normal, no suspicious rashes or lesions NEURO: Gait normal. Sensation grossly intact. IMAGING/TESTS: CXR 12/13/2023: PENDING INTERVAL HISTORY: Sav Rayumndo presents to clinic today for postoperative visit. Patient denies any recent hospitalizations since last visit. Denies any fevers or night sweats, but notes chills ever since being started on the metoprolol. States breathing still is becomes shallower prior to pleurx needing drained. Right pleurx drainage as follows: 12/05: 725 cc 12/08: 650 cc 12/10: 500 cc Right pleurx catheter with [address] (more content not included)... [facility] XR CHEST 2V FRONTAL/LATon XR CHEST 2V FRONTAL/LAT * * *Final Report* * * DATE OF EXAM: Dec 13 2023 1:18PM HCX 5291 - XR CHEST 2V FRONTAL/LAT / PROCEDURE REASON: Pleural effusion * * * * Physician Interpretation * * * * RESULT: EXAMINATION: CHEST RADIOGRAPH (2 VIEW FRONTAL and LATERAL) CLINICAL HISTORY: Pleural effusion MQ: XC2_6 EXAM DATE/TIME: 12/13/2023 1:18 PM COMPARISON: 12/03/2023. RESULT: Lines, tubes, and devices: A right chest tube remains in place. Lungs and pleura: No consolidation. No lung mass. There is a small right pleural effusion which has minimally increased in size since the prior exam. No pneumothorax. Cardiomediastinal silhouette: Normal cardiomediastinal silhouette. Bones and soft tissues: Unremarkable. IMPRESSION: Slight increase of the small right pleural effusion. A follow-up exam is recommended. Transcribed Using Voice Recognition Transcribe Date/Time: Dec 14 2023 1:14P Dictated by: JEFFREY KRUEGER MD This examination was interpreted and the report reviewed and electronically signed by: JEFFREY KRUEGER MD on Dec 14 2023 1:15PM EST [id number] [facility] XR Chest PA and Lateralon Radiology Study observation (narrative) [facility] CNOVon 12-03-2023 CNOV Office Visit ([facility] ) -- SAV RAYMUNDO ([id number]) 1950 M Date Time Provider Department 12/03/23 1:00 PM TITA LANDRY During your visit today, we recorded the following information about you: Temperature Pulse Respiration Blood pressure 97.8 degrees 74/minute 14/minute 120/78 Weight Height 102.4 kg 1.829 m Tita Landry APRN.ATTORNEY LAW CLERK 12/30/2023 10:10 PM Signed [facility] [place] DEPARTMENT OF THORACIC SURGERY OUTPATIENT VISIT DATE December 03, 2023 OUTPATIENT VISIT TYPE ESTABLISHED PT NAME: Sav Raymundo CLINIC NO: [id number] THORACIC SURGEON: Ronaldo Simmons M.D. DATE OF SERVICE: 12/03/2023 PRINCIPAL DX: Recurrent Right Pleural Effusion SURGICAL HX 11/20/2023: R VATS pleural biopsy, right mechanic assistant and doxycycline pleurodesis, right Pleurx catheter insertion, right 20Fr chest tube insertion Surgical Pathology 11/20/2023: Component FINAL DIAGNOSIS A. Right pleura, biopsy: - Chronic pleuritis with mesothelial hyperplasia (see comment). B. Right pleura, biopsy: - Acute organizing and chronic pleuritis (see comment). TN/ 11/22/2023 Diagnosis Comment A. The biopsy contains pleural tissue with chronic inflammation and focal reactive mesothelial hyperplasia. An immunohistochemical stain for BAP 1 shows retained nuclear expression of the mesothelial cells. B. The pleura shows areas with extensive granulation tissue associated with reactive mesenchymal mesothelial proliferation. Immunohistochemical stains were performed to exclude the possibility of mesothelial or vascular neoplasm. The mesothelial proliferation is positive for cytokeratin CAM 5.2, cytokeratin AE1/AE3, WT1, and focally for calretinin and smooth muscle actin. The cytokeratin stains do not show extension of the mesothelial proliferation into deeper adjacent tissues. All cells are negative for claudin-4. ERG highlights the vascular network of thin walled vessels arranged mostly perpendicular to the pleural surface. A BAP 1 stain shows retained nuclear expression. PU 1 highlights numerous histiocytes associated with the reactive proliferation. Drs. Della Subramanian and Zeus Hinton have also reviewed this case and agree that there is no definitive evidence of malignancy Right pleural fluid cytology: FINAL DIAGNOSIS A - Pleural Cavity, Right, Fluid, Thoracentesis - Right pleural fluid Negative for malignant cells. Acute and chronic inflammation. The following cell blocks were associated with this case: A1 Cell Block, Alcohol Fixed ON FOR VISIT: Post-operative visit HPI: Sav Raymundo is a 73 year old male with a PmHX significant for HTN, hyperlipidemia, gout, GERD. Patient seen 07/2023 for a few months lasting cough. He had a chest CT on 08/15/23 showing moderate R pleural effusion. He had thoracentesis twice on 09/04/23 and 10/01/2023, cytology was negative both times and chemical analysis was consistent with an exudate. The right pleural effusion persists per most recent CT on 10/18/23. He also has a small to moderate pericardial effusion seen on imaging and on ECHO that was done in 09/04/23, otherwise with good cardiac function(pericardial effusion almost completely resolved on last CT). Imaging has also been consistent with small to moderate left pleural effusion that has almost completely resolved on last CT. On 11/20/2023, patient underwent R VATS pleural biopsy, right mechanic assistant and doxycycline pleurodesis, right Pleurx catheter insertion, right 20Fr chest tube insertion. Postoperative course was unremarkable and patient was discharged home on 11/23/2023. PHYSICAL EXAM: VITAL SIGNS: BP 120/78 (BP Site: Left Arm, BP Position: Sitting, BP Cuff Size: Regular Adult) Pulse 74 Temp 36.6 ?C (97.8 ?F) (Temporal) Resp 14 Ht 182.9 cm (6') Wt 102.4 kg (225 lb 11.2 oz) SpO2 98% BMI 30.61 kg/m? Room air Incision location: Right Thoracoport sites Incision Assessment: Well approximated and no drainage, swelling, erythema or warmth Drain/Tubes: Pleurex Catheter GENERAL: well appearing, alert, no acute distress, well-hydrated, well nourished HEENT: normocephalic, midline, anicteric sclera. LUNGS: clear to auscultation, no wheezing or rhonchi HEART: RRR without murmur ABDOMEN: Soft, non-tender, non distended. No masses EXTREMITIES: No clubbing, cyanosis or edema. MUSCULOSKELETAL: Muscular strength intact. SKIN: turgor normal, no suspicious rashes or lesions NEURO: Gait normal. Sensation grossly intact. IMAGING/TESTS: CXR 12/03/2023: PENDING INTERVAL HISTORY: Sav Raymundo presents to clinic today for postoperative visit. States breathing is stable. Did not notice much improvement after 5 day course of lasix. States pleurx was las (more content not included)... [facility] 12-03-2023 CNPN [facility] XR CHEST 2V FRONTAL/LATon XR CHEST 2V FRONTAL/LAT * * *Final Report* * * DATE OF EXAM: Dec 03 2023 12:25PM HCX 5291 - XR CHEST 2V FRONTAL/LAT / PROCEDURE REASON: Follow-up exam * * * * Physician Interpretation * * * * RESULT: EXAMINATION: CHEST RADIOGRAPH (2 VIEW FRONTAL and LATERAL) CLINICAL HISTORY: Follow-up exam MQ: XC2_6 EXAM DATE/TIME: 12/03/2023 12:25 PM COMPARISON: Chest radiograph dated 11/29/2023 RESULT: Lines, tubes, and devices: Right chest tube remain in place. Lungs and pleura: Persistent small right-sided pleural effusion with adjacent atelectases/consolidations . No significant left pleural effusion. No pneumothorax. Cardiomediastinal silhouette: Stable cardiomediastinal silhouette. Bones and soft tissues: Degenerative changes are present within the thoracic spine. IMPRESSION: Persistent small right-sided pleural effusion with adjacent atelectases/consolidations , minimally improved since prior. Transcribed Using Voice Recognition Transcribe Date/Time: Dec 05 2023 12:52P Dictated by: SHAWN TALAVERA MD This examination was interpreted and the report reviewed and electronically signed by: SHAWN TALAVERA MD on Dec 05 2023 12:53PM EST [id number] [facility] CNOVon 11-29-2023 CNOV Office Visit ([facility] ) -- SAV RAYMUNDO ([id number]) 1950 M Date Time Provider Department 11/29/23 3:00 PM TITA LANDRY During your visit today, we recorded the following information about you: Temperature Pulse Respiration Blood pressure 97.3 degrees 71/minute 14/minute 121/68 Weight Height 105.6 kg 1.829 m Tita Landry APRN.ATTORNEY LAW CLERK 12/30/2023 9:20 PM Signed [facility] [place] DEPARTMENT OF THORACIC SURGERY OUTPATIENT VISIT DATE November 29, 2023 OUTPATIENT VISIT TYPE ESTABLISHED PT NAME: Sav Raymundo CLINIC NO: [id number] THORACIC SURGEON: Ronaldo Simmons M.D. DATE OF SERVICE: 11/29/2023 PRINCIPAL DX: Pleural Effusion SURGICAL HX 11/20/2023: R VATS pleural biopsy, right mechanic assistant and doxycycline pleurodesis, right Pleurx catheter insertion, right 20Fr chest tube insertion Surgical Pathology 11/20/2023: PENDING Right pleural fluid cytology: FINAL DIAGNOSIS A - Pleural Cavity, Right, Fluid, Thoracentesis - Right pleural fluid Negative for malignant cells. Acute and chronic inflammation. The following cell blocks were associated with this case: A1 Cell Block, Alcohol Fixed ON FOR VISIT: First post-operative visit HPI: Sav Raymundo is a 73 year old male with a PmHX significant for HTN, hyperlipidemia, gout, GERD. Patient seen 07/2023 for a few months lasting cough. He had a chest CT on 08/15/23 showing moderate R pleural effusion. He had thoracentesis twice on 09/04/23 and 10/01/2023, cytology was negative both times and chemical analysis was consistent with an exudate. The right pleural effusion persists per most recent CT on 10/18/23. He also has a small to moderate pericardial effusion seen on imaging and on ECHO that was done in 09/04/23, otherwise with good cardiac function(pericardial effusion almost completely resolved on last CT). Imaging has also been consistent with small to moderate left pleural effusion that has almost completely resolved on last CT. On 11/20/2023, patient underwent R VATS pleural biopsy, right mechanic assistant and doxycycline pleurodesis, right Pleurx catheter insertion, right 20Fr chest tube insertion. Postoperative course was unremarkable and patient was discharged home on 11/23/2023. PHYSICAL EXAM: VITAL SIGNS: BP 121/68 (BP Site: Left Arm, BP Position: Sitting, BP Cuff Size: Regular Adult) Pulse 71 Temp 36.3 ?C (97.3 ?F) (Temporal) Resp 14 Ht 182.9 cm (6') Wt 105.6 kg (232 lb 12.8 oz) SpO2 98% BMI 31.57 kg/m? Room air Incision location: Right Thoracoport sites Incision Assessment: Well approximated and no drainage, swelling, erythema or warmth Drain/Tubes: Pleurex Catheter-capped GENERAL: well appearing, alert, no acute distress, well-hydrated, well nourished HEENT: normocephalic, midline, anicteric sclera. LUNGS: clear to auscultation, no wheezing or rhonchi HEART: RRR without murmur ABDOMEN: Soft, non-tender, non distended. No masses EXTREMITIES: No clubbing, cyanosis. 1+ BLE pitting edema MUSCULOSKELETAL: Muscular strength intact. SKIN: turgor normal, no suspicious rashes or lesions NEURO: Gait normal. Sensation grossly intact. IMAGING/TESTS: CXR 11/29/2023: PENDING INTERVAL HISTORY: Patient presents to clinic today for first postoperative visit. He denies any recent hospitalizations since discharge. Denies fevers, chills, night sweats. Pain is well controlled on current regimen. Breathing has improved since pleurx placement, and notes breathing is more shallow prior to draining pleurx. Right pleurx catheter with drainage as follows 11/24: 945 cc (dark awilda with foam) 11/26: 450 cc (cosmetician apprentice than last time with foam) I drained 790 cc of serosanguinous drainage in clinic today. Recommend draining pleurx daily until output slows down, but states she is unable to and HHC comes every other day. Reviewed with patient and his that fluid cytology was negative for malignant cells, but surgical pathology results were not in yet. Patient and voice frustration that they do not have an answer as to where the fluid is coming from. Requesting to follow-up next week on a day that he can be seen by Dr. Simmons to further discuss. IMPRESSION: 73 year old male with pmh significant for recurrent right pleural effusion s/p R VATS pleural biopsy, right mechanic assistant and doxycycline pleurodesis, right Pleurx catheter insertion, right 20Fr chest tube insertion on 11/20/[address] Simmons. Patient overall doing well from a clinical standpoint. CXR from today is still pending; to my eye, shows improving right pleural effusion. Patient continues to drain large amounts from pleurx cathete every other day. Fluid cytology negative for malignant cells, but final surgical pathology is still pending. PLAN: -Will call with surgical patholog (more content not included)... [facility] XR CHEST 2V FRONTAL/LATon XR CHEST 2V FRONTAL/LAT * * *Final Report* * * DATE OF EXAM: Nov 29 2023 2:19PM HCX 5291 - XR CHEST 2V FRONTAL/LAT / PROCEDURE REASON: Surgery follow-up * * * * Physician Interpretation * * * * RESULT: EXAMINATION: CHEST RADIOGRAPH (2 VIEW FRONTAL and LATERAL) CLINICAL HISTORY: Surgery follow-up MQ: XC2_6 EXAM DATE/TIME: 11/29/2023 2:19 PM COMPARISON: 11/23/2023. RESULT: Lines, tubes, and devices: A right chest tube remains in place. Lungs and pleura: There is a persistent right lower chest pleural effusion with resolution of the previously seen loculation in the right upper chest. There are persistent infiltrates/atelectatic changes in the right mid and lower lung. Cardiomediastinal silhouette: Normal cardiomediastinal silhouette. Bones and soft tissues: Unremarkable. IMPRESSION: Improvement without resolution of the right pleural effusion with a right chest tube remaining in situ. A follow-up exam is recommended. Transcribed Using Voice Recognition Transcribe Date/Time: Nov 30 2023 4:58P Dictated by: JEFFREY KRUEGER MD This examination was interpreted and the report reviewed and electronically signed by: JEFFREY KRUEGER MD on Nov 30 2023 4:59PM EST [id number] [facility] 11-24-2023 [facility] Telephone ([facility]) -- SAV RAYMUNDO ([id number]) 1950 M Date Time Provider Department 11/24/23 RONALDO SIMMONS During your visit today, we recorded the following information about you: Allergies As of Date: 11/24/2023 Noted Allergy Reaction TRAMADOL 12/15/2020 1 - Mental Status Change Date Reviewed: 11/23/2023 Reviewed by: Lilia Slater RN - Fully Assessed Primary Visit Diagnosis:Surgery follow-up [Z09] Order(s):XR CHEST 2V FRONTAL/LAT [[id number]] Order #: [id number] FUTURE Prescriptions as of 11/24/2023 - acetaminophen (TYLENOL) 500 mg tablet Take 2 tablets by mouth every 6 hours. - lidocaine (SALONPAS) 4 % patch Apply 1 Patch as directed once daily. - losartan (COZAAR) 25 mg tablet Take 1 tablet by mouth once daily. Patient should start on December 23, 2023. - metoprolol tartrate, short acting, (LOPRESSOR) 25 mg tablet Take 1 tablet by mouth every 12 hours. Metoprolol was prescribed to prevent atrial fibrillation after thoracic surgery. Stop this medication after 30 days. - oxyCODONE IR (ROXICODONE) 5 mg immediate release tablet Take 1 tablet by mouth every 6 hours as needed for up to 7 days. - polyethylene glycol 3350 17 gram packet Take 1 Packet by mouth once daily for 7 days. Dissolve dose in 4 - 8 ounces of liquid and take as directed. - Nebulizer and Compressor For Neb (INNOSPIRE ESSENCE) 1 Each four times daily. - ipratropium-albuterol (DUONEB) 0.5 mg-3 mg(2.5 mg base)/3 mL nebu Inhale 3 mL as instructed every 6 hours as needed for wheezing/shortness of breath. - allopurinol (ZYLOPRIM) 300 mg tablet Take 300 mg by mouth once daily. - atorvastatin (LIPITOR) 10 mg tablet Take 1 tablet by mouth once daily. - omeprazole (PRILOSEC) 20 mg capsule Take 20 mg by mouth once daily. - meloxicam (MOBIC) 15 mg tablet Take 15 mg by mouth once daily as needed for pain. Problem List As Of Date 11/24/2023 Noted Resolved Obesity, Class I, BMI 30-34.9 [E66.9] 10/25/2023 Pleural effusion [J90] 11/20/2023 Postoperative pain [G89.18] 11/21/2023 Encounter Status:Closed by JACEK RODAS on 11/24/23 Normal [facility] Basic metabolic 2000 panelon 11-23-2023 Anion gap [Moles/Vol] 14 mmol/L Normal 8-15 [facility] Comment on above: Order Comment: Speci men Type: BLOOD SPECIMENOrdering Facility: Address: [address] [place] [address] Performed By: #### 2 4321-2 ####[facility] [id number] [place] [address] [place] Calcium [Mass/Vol] 9.3 mg/dL Normal 8.5-10.2 [facility] Comment on above: Order Comment: Speci men Type: BLOOD SPECIMENOrdering Facility: Address: [address] [place] [address] Performed By: #### 2 4321-2 ####[facility] LABCLIA [id number] [place] [id number] [place] Chloride [Moles/Vol] 103 mmol/L Normal 98-107 [facility] Comment on above: Order Comment: Speci men Type: BLOOD SPECIMENOrdering Facility: Address: [address] [place] [address] Performed By: #### 2 4321-2 ####[facility]CL[facility] [id number] [place] [address] [place] CO2 [Moles/Vol] 20 mmol/L Low 22-30 [facility] Comment on above: Order Comment: Speci men Type: BLOOD SPECIMENOrdering Facility: Address: [address] [place] [address] Performed By: #### 2 4321-2 ####[facility]CL[facility] [id number] [place] [address] [place] Creatinine [Mass/Vol] 0.91 mg/dL Normal 0.73-1.22 [facility] Comment on above: Order Comment: Speci men Type: BLOOD SPECIMENOrdering Facility: Address: [address] [place] [address] Performed By: #### 2 4321-2 ####[facility] [id number] [place] [address] [place] Creatinine and Glomerular filtration rate.predicted panel (S/P/Bld) 90 mL/min/1.73m??? Normal >=60 [facility] Comment on above: Order Comment: Speci men Type: BLOOD SPECIMENOrdering Facility: Address: [address] [place] [address] Result Comment: Kristel mated Glomerular Filtration Rate (eGFR) is calculated using the 2020 CKD-EPI creatinine equation. This equation utilizes serum creatinine, sex, and age as parameters. The creatinine assay has traceable calibration to isotope dilution-mass spectrometry. Refer to KDIGO guidelines for clinical interpretation. In patients with unstable renal function, e.g. those with acute kidney injury, the eGFR may not accurately reflect actual GFR. Performed By: #### 2 4321-2 ####[facility] [id number] [place] [id number] [place] Glucose [Mass/Vol] 122 mg/dL High 74-99 [facility] Comment on above: Order Comment: Speci men Type: BLOOD SPECIMENOrdering Facility: Address: [address] [place], [place] [address] Result Comment: The [place] Diabetes [employer] (ADA) provides guidance for cutoff values for fasting glucose and random glucose. The ADA defines fasting as no caloric intake for at least 8 hours. Fasting plasma glucose results between 100 to 125 mg/dL indicate increased risk for diabetes (prediabetes).Fasting plasma glucose results greater than or equal to 126 mg/dL meet the criteria for diagnosis of diabetes. In the absence of unequivocal hyperglycemia, results should be confirmed by repeat testing. In a patient with classic symptoms of hyperglycemia or hyperglycemic crisis, random plasma glucose results greater than or equal to 200 mg/dL meet the criteria for diagnosis of diabetes.Reference: Standards of Medical Care in Diabetes 2016, [place] [employer]. Diabetes Care. 2016.39(Suppl 1). Performed By: #### 2 4321-2 ####[facility] [id number] [place] [address] [place] Potassium [Moles/Vol] 4.3 mmol/L Normal 3.7-5.1 [facility] Comment on above: Order Comment: Speci men Type: BLOOD SPECIMENOrdering Facility: Address: [address] [place], [place] [address] Performed By: #### 2 4321-2 ####[facility] [id number] [place] [address] [place] Sodium [Moles/Vol] 137 mmol/L Normal 136-144 [facility] Comment on above: Order Comment: Speci men Type: BLOOD SPECIMENOrdering Facility: Address: [address] [place] [address] Performed By: #### 2 4321-2 ####[facility] [id number] [place] [address] [place] Urea nitrogen [Mass/Vol] 11 mg/dL Normal 9-24 [facility] Comment on above: Order Comment: Speci men Type: BLOOD SPECIMENOrdering Facility: Address: [address] [place] [address] Performed By: #### 2 4321-2 ####[facility] [id number] [place] [address] [place] CASE MANAGEMon 11-23-2023 CASE MANAGEM Normal [facility] CBC panel Auto (Bld)on 11-22 Erythrocyte distribution width (RBC) [Ratio] 14.6 % Normal 11.5-15.0 [facility] Comment on above: Order Comment: Speci men Type: BLOOD SPECIMENOrdering Facility: Address: [address] [place] [address] Performed By: #### 5 8410-2 ####[facility] [id number] [place] [address] [place] Hematocrit (Bld) [Volume fraction] 37.4 % Low 39.0-51.0 [facility] Comment on above: Order Comment: Speci men Type: BLOOD SPECIMENOrdering Facility: Address: [address] [place] [address] Performed By: #### 5 8410-2 ####[facility] [id number] [place] [address] [place] Hemoglobin (Bld) [Mass/Vol] 11.8 g/dL Low 13.0-17.0 [facility] Comment on above: Order Comment: Speci men Type: BLOOD SPECIMENOrdering Facility: Address: [address] [place] [address] Performed By: #### 5 8410-2 ####[facility] [id number] [place] [address] [place] MCH (RBC) [Entitic mass] 29.6 pg Normal 26.0-34.0 [facility] Comment on above: Order Comment: Speci men Type: BLOOD SPECIMENOrdering Facility: Address: [address] [place] [address] Performed By: #### 5 8410-2 ####[facility]CLIA [id number] [place] [address] [place] MCHC (RBC) [Mass/Vol] 31.6 g/dL Normal 30.5-36.0 [facility] Comment on above: Order Comment: Speci men Type: BLOOD SPECIMENOrdering Facility: Address: [address] [place] [address] Performed By: #### 5 8410-2 ####[facility] [id number] [place] [address] [place] MCV (RBC) [Entitic vol] 94.0 fL Normal 80.0-100.0 [facility] Comment on above: Order Comment: Speci men Type: BLOOD SPECIMENOrdering Facility: Address: [address] [place] [address] Performed By: #### 5 8410-2 ####[facility] [id number] [place] [address] [place] Nucleated RBC (Bld) [#/Vol] 10*3/uL Normal <0.01 [facility] Comment on above: Order Comment: Speci men Type: BLOOD SPECIMENOrdering Facility: Address: [address] [place] [address] Performed By: #### 5 8410-2 ####[facility] [id number] [place] [address] [place] Platelet mean volume (Bld) [Entitic vol] 10.3 fL Normal 9.0-12.7 [facility] Comment on above: Order Comment: Speci men Type: BLOOD SPECIMENOrdering Facility: Address: [address] [place] [address] Performed By: #### 5 8410-2 ####[facility] [id number] [place] [address] [place] Platelets (Bld) [#/Vol] 189 10*3/uL Normal 150-400 [facility] Comment on above: Order Comment: Speci men Type: BLOOD SPECIMENOrdering Facility: Address: [address] [place] [address] Performed By: #### 5 8410-2 ####[facility]CL[facility] [id number] [place] [address] [place] RBC (Bld) [#/Vol] 3.98 10*6/uL Low 4.20-6.00 [facility] Comment on above: Order Comment: Speci men Type: BLOOD SPECIMENOrdering Facility: Address: [address] [place] [address] Performed By: #### 5 8410-2 ####[facility]CL[facility] [id number] [place] [address] [place] WBC (Bld) [#/Vol] 8.23 10*3/uL Normal 3.70-11.00 [facility] Comment on above: Order Comment: Speci men Type: BLOOD SPECIMENOrdering Facility: Address: [address] [place] [address] Performed By: #### 5 8410-2 ####[facility]CL[facility] [id number] [place] [address] [place] CNDSon 11-23-2023 CNDS Normal [facility] THERAPY NTon 11-23-2023 THERAPY NT Normal [facility] XR CHEST 1V FRONTAL PORTon 0 11-23-2023 XR CHEST 1V FRONTAL PORT Normal [facility] XR CHEST 2V FRONTAL/LATon XR CHEST 2V FRONTAL/LAT Normal [facility] Basic metabolic 2000 panelon 11-22-2023 Anion gap [Moles/Vol] 12 mmol/L Normal 8-15 [facility] Comment on above: Order Comment: Speci men Type: BLOOD SPECIMENOrdering Facility: Address: [address] [place] [address] Performed By: #### 2 4321-2 ####[facility]CL[facility] [id number] [place] [address] [place] Calcium [Mass/Vol] 8.4 mg/dL Low 8.5-10.2 [facility] Comment on above: Order Comment: Speci men Type: BLOOD SPECIMENOrdering Facility: Address: [address] [place] [address] Performed By: #### 2 4321-2 ####[facility]CL[facility] [id number] [place] [address] [place] Chloride [Moles/Vol] 102 mmol/L Normal 98-107 [facility] Comment on above: Order Comment: Speci men Type: BLOOD SPECIMENOrdering Facility: Address: [address] [place] [address] Performed By: #### 2 4321-2 ####[facility]CL[facility] [id number] [place] [address] [place] CO2 [Moles/Vol] 19 mmol/L Low 22-30 [facility] Comment on above: Order Comment: Speci men Type: BLOOD SPECIMENOrdering Facility: Address: [address] [place] [address] Performed By: #### 2 4321-2 ####[facility] [id number] [place] [address] [place] Creatinine [Mass/Vol] 1.10 mg/dL Normal 0.73-1.22 [facility] Comment on above: Order Comment: Speci men Type: BLOOD SPECIMENOrdering Facility: Address: [address] [place] [address] Performed By: #### 2 4321-2 ####[facility]CL[facility] [id number] [place] [address] [place] Creatinine and Glomerular filtration rate.predicted panel (S/P/Bld) 71 mL/min/1.73m??? Normal >=60 [facility] Comment on above: Order Comment: Alexandru campos Type: BLOOD SPECIMENOrdering Facility: Address: [address] [place] [address] Result Comment: Kristel mated Glomerular Filtration Rate (eGFR) is calculated using the 2020 CKD-EPI creatinine equation. This equation utilizes serum creatinine, sex, and age as parameters. The creatinine assay has traceable calibration to isotope dilution-mass spectrometry. Refer to KDIGO guidelines for clinical interpretation. In patients with unstable renal function, e.g. those with acute kidney injury, the eGFR may not accurately reflect actual GFR. Performed By: #### 2 4321-2 ####[facility]CL[facility] [id number] [place] [address] [place] Glucose [Mass/Vol] 119 mg/dL High 74-99 [facility] Comment on above: Order Comment: Alexandru campos Type: BLOOD SPECIMENOrdering Facility: Address: [address] [place] [address] Result Comment: The [place] Diabetes [employer] (ADA) provides guidance for cutoff values for fasting glucose and random glucose. The ADA defines fasting as no caloric intake for at least 8 hours. Fasting plasma glucose results between 100 to 125 mg/dL indicate increased risk for diabetes (prediabetes).Fasting plasma glucose results greater than or equal to 126 mg/dL meet the criteria for diagnosis of diabetes. In the absence of unequivocal hyperglycemia, results should be confirmed by repeat testing. In a patient with classic symptoms of hyperglycemia or hyperglycemic crisis, random plasma glucose results greater than or equal to 200 mg/dL meet the criteria for diagnosis of diabetes.Reference: Standards of Medical Care in Diabetes 2016, [place] [employer]. Diabetes Care. 2016.39(Suppl 1). Performed By: #### 2 4321-2 ####[facility]CL[facility] [id number] [place] [address] [place] Potassium [Moles/Vol] 3.8 mmol/L Normal 3.7-5.1 [facility] Comment on above: Order Comment: Speci men Type: BLOOD SPECIMENOrdering Facility: Address: [address] [place] [address] Performed By: #### 2 4321-2 ####[facility]CL[facility] [id number] [address] [address] [place] Sodium [Moles/Vol] 133 mmol/L Low 136-144 [facility] Comment on above: Order Comment: Speci men Type: BLOOD SPECIMENOrdering Facility: Address: [address] [place] [address] Performed By: #### 2 4321-2 ####[facility]CL[facility] [id number] [place] [address] [place] Urea nitrogen [Mass/Vol] 18 mg/dL Normal 9-24 [facility] Comment on above: Order Comment: Speci men Type: BLOOD SPECIMENOrdering Facility: Address: [address] [place] [address] Performed By: #### 2 4321-2 ####[facility] [id number] [place] [address] [place] CASE MANAGEMon 11-22-2023 CASE MANAGEM Normal [facility] CBC panel Auto (Bld)on 11-21 Erythrocyte distribution width (RBC) [Ratio] 14.8 % Normal 11.5-15.0 [facility] Comment on above: Order Comment: Speci men Type: BLOOD SPECIMENOrdering Facility: Address: [address] [place] [address] Performed By: #### 5 8410-2 ####[facility]CL[facility] [id number] [place] [address] [place] Hematocrit (Bld) [Volume fraction] 35.2 % Low 39.0-51.0 [facility] Comment on above: Order Comment: Speci men Type: BLOOD SPECIMENOrdering Facility: Address: [address] [place] [address] Performed By: #### 5 8410-2 ####[facility]CL[facility] [id number] [place] [address] [place] Hemoglobin (Bld) [Mass/Vol] 10.9 g/dL Low 13.0-17.0 [facility] Comment on above: Order Comment: Speci men Type: BLOOD SPECIMENOrdering Facility: Address: [address] [place] [address] Performed By: #### 5 8410-2 ####[facility] [id number] [place] [address] [place] MCH (RBC) [Entitic mass] 29.7 pg Normal 26.0-34.0 [facility] Comment on above: Order Comment: Speci men Type: BLOOD SPECIMENOrdering Facility: Address: [address] [place] [address] Performed By: #### 5 8410-2 ####[facility] [id number] [place] [address] [place] MCHC (RBC) [Mass/Vol] 31.0 g/dL Normal 30.5-36.0 [facility] Comment on above: Order Comment: Speci men Type: BLOOD SPECIMENOrdering Facility: Address: [address] [place] [address] Performed By: #### 5 8410-2 ####[facility] [id number] [place] [address] [place] MCV (RBC) [Entitic vol] 95.9 fL Normal 80.0-100.0 [facility] Comment on above: Order Comment: Speci men Type: BLOOD SPECIMENOrdering Facility: Address: [address] [place] [address] Performed By: #### 5 8410-2 ####[facility]CL[facility] [id number] [place] [address] [place] Nucleated RBC (Bld) [#/Vol] 10*3/uL Normal <0.01 [facility] Comment on above: Order Comment: Speci men Type: BLOOD SPECIMENOrdering Facility: Address: [address] [place] [address] Performed By: #### 5 8410-2 ####[facility] [id number] [place] [address] [place] Platelet mean volume (Bld) [Entitic vol] 10.3 fL Normal 9.0-12.7 [facility] Comment on above: Order Comment: Speci men Type: BLOOD SPECIMENOrdering Facility: Address: [address] [place] [address] Performed By: #### 5 8410-2 ####[facility] [id number] [place] [address] [place] Platelets (Bld) [#/Vol] 162 10*3/uL Normal 150-400 [facility] Comment on above: Order Comment: Speci men Type: BLOOD SPECIMENOrdering Facility: Address: [address] [place] [address] Performed By: #### 5 8410-2 ####[facility] [id number] [place] [address] [place] RBC (Bld) [#/Vol] 3.67 10*6/uL Low 4.20-6.00 [facility] Comment on above: Order Comment: Speci men Type: BLOOD SPECIMENOrdering Facility: Address: [address] [place] [address] Performed By: #### 5 8410-2 ####[facility] [id number] [place] [address] [place] WBC (Bld) [#/Vol] 9.61 10*3/uL Normal 3.70-11.00 [facility] Comment on above: Order Comment: Speci men Type: BLOOD SPECIMENOrdering Facility: Address: [address] [place] [address] Performed By: #### 5 8410-2 ####[facility] [id number] [place] [address] [place] XR CHEST 1V FRONTAL PORTon 0 11-22-2023 XR CHEST 1V FRONTAL PORT Normal [facility] Basic metabolic 2000 panelon 11-21-2023 Anion gap [Moles/Vol] 7 mmol/L Low 8-15 [facility] Comment on above: Order Comment: Speci men Type: BLOOD SPECIMENOrdering Facility: Address: [address] [place] [address] Performed By: #### 2 4321-2 ####[facility] [id number] [place] [address] [place] Calcium [Mass/Vol] 7.0 mg/dL Low 8.5-10.2 [facility] Comment on above: Order Comment: Speci men Type: BLOOD SPECIMENOrdering Facility: Address: [address] [place] [address] Result Comment: Resu lt rechecked. Performed By: #### 2 4321-2 ####[facility] [id number] [place] [address] [place] Chloride [Moles/Vol] 110 mmol/L High 98-107 [facility] Comment on above: Order Comment: Speci men Type: BLOOD SPECIMENOrdering Facility: Address: [address] [place] [address] Performed By: #### 2 4321-2 ####[facility] [id number] [place] [address] [place] CO2 [Moles/Vol] 20 mmol/L Low 22-30 [facility] Comment on above: Order Comment: Speci men Type: BLOOD SPECIMENOrdering Facility: Address: [address] [place] [address] Performed By: #### 2 4321-2 ####[facility] [id number] [facility] [place] [id number] [place] Creatinine [Mass/Vol] 1.08 mg/dL Normal 0.73-1.22 [facility] Comment on above: Order Comment: Speci men Type: BLOOD SPECIMENOrdering Facility: Address: [address] [place] [address] Performed By: #### 2 4321-2 ####[facility] [id number] [place] [address] [place] Creatinine and Glomerular filtration rate.predicted panel (S/P/Bld) 73 mL/min/1.73m??? Normal >=60 [facility] Comment on above: Order Comment: Speci men Type: BLOOD SPECIMENOrdering Facility: Address: [address] [place] [address] Result Comment: Kristel mated Glomerular Filtration Rate (eGFR) is calculated using the 2020 CKD-EPI creatinine equation. This equation utilizes serum creatinine, sex, and age as parameters. The creatinine assay has traceable calibration to isotope dilution-mass spectrometry. Refer to KDIGO guidelines for clinical interpretation. In patients with unstable renal function, e.g. those with acute kidney injury, the eGFR may not accurately reflect actual GFR. Performed By: #### 2 4321-2 ####[facility] [id number] [place] [address] [place] Glucose [Mass/Vol] 103 mg/dL High 74-99 [facility] Comment on above: Order Comment: Speci men Type: BLOOD SPECIMENOrdering Facility: Address: [address] [place] [address] Result Comment: The [place] Diabetes Association (ADA) provides guidance for cutoff values for fasting glucose and random glucose. The ADA defines fasting as no caloric intake for at least 8 hours. Fasting plasma glucose results between 100 to 125 mg/dL indicate increased risk for diabetes (prediabetes).Fasting plasma glucose results greater than or equal to 126 mg/dL meet the criteria for diagnosis of diabetes. In the absence of unequivocal hyperglycemia, results should be confirmed by repeat testing. In a patient with classic symptoms of hyperglycemia or hyperglycemic crisis, random plasma glucose results greater than or equal to 200 mg/dL meet the criteria for diagnosis of diabetes.Reference: Standards of Medical Care in Diabetes 2016, [place] [employer]. Diabetes Care. 2016.39(Suppl 1). Performed By: #### 2 4321-2 ####[facility] [id number] [place] [address] [place] Potassium [Moles/Vol] 3.0 mmol/L Low 3.7-5.1 [facility] Comment on above: Order Comment: Speci men Type: BLOOD SPECIMENOrdering Facility: Address: [address] [place] [address] Performed By: #### 2 4321-2 ####[facility] [id number] [place] [address] [place] Sodium [Moles/Vol] 137 mmol/L Normal 136-144 [facility] Comment on above: Order Comment: Speci men Type: BLOOD SPECIMENOrdering Facility: Address: [address] [place] [address] Performed By: #### 2 4321-2 ####[facility] [id number] [place] [id number] [place] Urea nitrogen [Mass/Vol] 17 mg/dL Normal 9-24 [facility] Comment on above: Order Comment: Speci men Type: BLOOD SPECIMENOrdering Facility: Address: [address] [place] [address] Performed By: #### 2 4321-2 ####[facility] [id number] [place] [id number] [place] Anion gap [Moles/Vol] 11 mmol/L Normal 8-15 [facility] Comment on above: Order Comment: Speci men Type: BLOOD SPECIMENOrdering Facility: Address: [address] [place] [address] Performed By: #### 2 4321-2 ####[facility] [id number] [place] [address] [place] Calcium [Mass/Vol] 8.9 mg/dL Normal 8.5-10.2 [facility] Comment on above: Order Comment: Speci men Type: BLOOD SPECIMENOrdering Facility: Address: [address] [place] [address] Performed By: #### 2 4321-2 ####[facility] [id number] [place] [address] [place] Chloride [Moles/Vol] 104 mmol/L Normal 98-107 [facility] Comment on above: Order Comment: Speci men Type: BLOOD SPECIMENOrdering Facility: Address: [address] [place] [address] Performed By: #### 2 4321-2 ####[facility] [id number] [place] [address] [place] CO2 [Moles/Vol] 22 mmol/L Normal 22-30 [facility] Comment on above: Order Comment: Speci men Type: BLOOD SPECIMENOrdering Facility: Address: [address] [place] [address] Performed By: #### 2 4321-2 ####[facility] [facility] LABCLIA [id number] [place] [address] [place] Creatinine [Mass/Vol] 0.92 mg/dL Normal 0.73-1.22 [facility] Comment on above: Order Comment: Speci men Type: BLOOD SPECIMENOrdering Facility: Address: [address] [place] [address] Performed By: #### 2 4321-2 ####[facility] LABCLIA [id number] [place] [address] [place] Creatinine and Glomerular filtration rate.predicted panel (S/P/Bld) 88 mL/min/1.73m??? Normal >=60 [facility] Comment on above: Order Comment: Alexandru campos Type: BLOOD SPECIMENOrdering Facility: Address: [address] [place] [address] Result Comment: Kristel mated Glomerular Filtration Rate (eGFR) is calculated using the 2020 CKD-EPI creatinine equation. This equation utilizes serum creatinine, sex, and age as parameters. The creatinine assay has traceable calibration to isotope dilution-mass spectrometry. Refer to KDIGO guidelines for clinical interpretation. In patients with unstable renal function, e.g. those with acute kidney injury, the eGFR may not accurately reflect actual GFR. Performed By: #### 2 4321-2 ####[facility] LABCLIA [id number] [place] [address] [place] Glucose [Mass/Vol] 116 mg/dL High 74-99 [facility] Comment on above: Order Comment: Alexandru campos Type: BLOOD SPECIMENOrdering Facility: Address: [address] [place] [address] Result Comment: The [place] Diabetes Association (ADA) provides guidance for cutoff values for fasting glucose and random glucose. The ADA defines fasting as no caloric intake for at least 8 hours. Fasting plasma glucose results between 100 to 125 mg/dL indicate increased risk for diabetes (prediabetes).Fasting plasma glucose results greater than or equal to 126 mg/dL meet the criteria for diagnosis of diabetes. In the absence of unequivocal hyperglycemia, results should be confirmed by repeat testing. In a patient with classic symptoms of hyperglycemia or hyperglycemic crisis, random plasma glucose results greater than or equal to 200 mg/dL meet the criteria for diagnosis of diabetes.Reference: Standards of Medical Care in Diabetes 2016, [place] [employer]. Diabetes Care. 2016.39(Suppl 1). Performed By: #### 2 4321-2 ####[facility] LABCLIA [id number] [place] [address] [place] Potassium [Moles/Vol] 4.5 mmol/L Normal 3.7-5.1 [facility] Comment on above: Order Comment: Speci men Type: BLOOD SPECIMENOrdering Facility: Address: [address] [place] [address] Performed By: #### 2 4321-2 ####[facility] LABCLIA [id number] [place] [address] [place] Sodium [Moles/Vol] 137 mmol/L Normal 136-144 [facility] Comment on above: Order Comment: Speci men Type: BLOOD SPECIMENOrdering Facility: Address: [address] [place] [address] Performed By: #### 2 4321-2 ####[facility] LABCLIA [id number] [place] [address] [place] Urea nitrogen [Mass/Vol] 14 mg/dL Normal 9-24 [facility] Comment on above: Order Comment: Speci men Type: BLOOD SPECIMENOrdering Facility: Address: [address] [place] [address] Performed By: #### 2 4321-2 ####[facility] LABCLIA [id number] [place] [address] [place] CASE MGT INIT ASSESon 2023 CASE MGT INIT ASSES Normal [facility] CBC panel Auto (Bld)on 11-20 Erythrocyte distribution width (RBC) [Ratio] 14.8 % Normal 11.5-15.0 [facility] Comment on above: Order Comment: Speci men Type: BLOOD SPECIMENOrdering Facility: Address: [address] [place] [address] Performed By: #### 5 8410-2 ####[facility] LABCLIA [id number] [address] [id number] [address] [place] Hematocrit (Bld) [Volume fraction] 40.0 % Normal 39.0-51.0 [facility] Comment on above: Order Comment: Speci men Type: BLOOD SPECIMENOrdering Facility: Address: [address] [place] [address] Performed By: #### 5 8410-2 ####[facility] LABCLIA [id number] [place] [address] [place] Hemoglobin (Bld) [Mass/Vol] 12.4 g/dL Low 13.0-17.0 [facility] Comment on above: Order Comment: Speci men Type: BLOOD SPECIMENOrdering Facility: Address: [address] [place] [address] Performed By: #### 5 8410-2 ####[facility] LABIA [id number] [place] [address] [place] MCH (RBC) [Entitic mass] 30.0 pg Normal 26.0-34.0 [facility] Comment on above: Order Comment: Speci men Type: BLOOD SPECIMENOrdering Facility: Address: [address] [place] [address] Performed By: #### 5 8410-2 ####[facility] LABIA [id number] [place] [address] [place] MCHC (RBC) [Mass/Vol] 31.0 g/dL Normal 30.5-36.0 [facility] Comment on above: Order Comment: Speci men Type: BLOOD SPECIMENOrdering Facility: Address: [address] [place] [address] Performed By: #### 5 8410-2 ####[facility] LABCLIA [id number] [place] [address] [place] MCV (RBC) [Entitic vol] 96.9 fL Normal 80.0-100.0 [facility] Comment on above: Order Comment: Speci men Type: BLOOD SPECIMENOrdering Facility: Address: [address] [place] [address] Performed By: #### 5 8410-2 ####[facility] LABIA [id number] [place] [address] [place] Nucleated RBC (Bld) [#/Vol] 10*3/uL Normal <0.01 [facility] Comment on above: Order Comment: Speci men Type: BLOOD SPECIMENOrdering Facility: Address: [address] [place] [address] Performed By: #### 5 8410-2 ####[facility] LABIA [id number] [place] [address] [place] Platelet mean volume (Bld) [Entitic vol] 10.5 fL Normal 9.0-12.7 [facility] Comment on above: Order Comment: Speci men Type: BLOOD SPECIMENOrdering Facility: Address: [address] [place] [address] Performed By: #### 5 8410-2 ####[facility] LABIA [id number] [place] [address] [place] Platelets (Bld) [#/Vol] 220 10*3/uL Normal 150-400 [facility] Comment on above: Order Comment: Speci men Type: BLOOD SPECIMENOrdering Facility: Address: [address] [place] [address] Performed By: #### 5 8410-2 ####[facility] LABIA [id number] [place] [address] [place] RBC (Bld) [#/Vol] 4.13 10*6/uL Low 4.20-6.00 [facility] Comment on above: Order Comment: Speci men Type: BLOOD SPECIMENOrdering Facility: Address: [address] [place] [address] Performed By: #### 5 8410-2 ####[facility] LABCLIA [id number] [place] [address] [place] WBC (Bld) [#/Vol] 11.64 10*3/uL High 3.70-11.00 [facility] Comment on above: Order Comment: Speci men Type: BLOOD SPECIMENOrdering Facility: Address: [address] [place] [address] Performed By: #### 5 8410-2 ####[facility] LABCLIA [id number] [place] [address] [place] XR CHEST 1V FRONTAL PORTon 0 11-21-2023 XR CHEST 1V FRONTAL PORT Normal [facility] ANES POSTPROC EVALon 024 ANES POSTPROC EVAL Normal [facility] ANES PRE-OPon 11-20-2023 ANES PRE-OP Normal [facility] BRIEF OP NOTon 11-20-2023 BRIEF OP NOT Normal [facility] CYTOLOGY NON-GYNon CASE REPORT Normal [facility] Comment on above: Order Comment: Speci men Type: SPECIMEN FROM PLEURA OBTAINED BY THORACENTESISOrdering Facility: Address: [address] [place] [address] Result Comment: [facility] Cytology Report Case: [id number] Provider: Ronaldo Simmons MD, PhD Collected: 11/20/2023 01:45 PMOrdering Location: Admitting Received: 11/20/2023 03:26 PMPathologist: Clyde Machado MDSpecimen: Pleural Cavity, Right, Right pleural fluid Performed By: #### C YTONON ####[facility] LABCLIA [id number] [place] [address] [place] CLINICAL HISTORY Right pleural fluid Normal [facility] Comment on above: Order Comment: Speci men Type: SPECIMEN FROM PLEURA OBTAINED BY THORACENTESISOrdering Facility: Address: [address] [place] [address] Performed By: #### C YTONON ####[facility] LABCLIA [id number] [place] [address] [place] FINAL DIAGNOSIS Normal [facility] Comment on above: Order Comment: Speci men Type: SPECIMEN FROM PLEURA OBTAINED BY THORACENTESISOrdering Facility: Address: [address] [place] [address] Result Comment: A - Pleural Cavity, Right, Fluid, Thoracentesis - Right pleural fluid Negative for malignant cells. Acute and chronic inflammation.The following cell blocks were associated with this case:A1 Cell Block, Alcohol Fixed Performed By: #### C YTONON ####[facility] LABCLIA [id number] [place] [address] [place] FINAL PERFORMING LAB Normal [facility] Comment on above: Order Comment: Speci men Type: SPECIMEN FROM PLEURA OBTAINED BY THORACENTESISOrdering Facility: Address: [address] [place] [address] Result Comment: Tech nical component, visual stylist screening performed at [facility], [address] [place] [address] CLIA# [id number] interpretation performed at [facility], [address] [place] [address] CLIA# [id number] Director: Ramos Strickland M.D. Performed By: #### C YTONON ####[facility] LABCLIA [id number] [place] [address] [place] GROSS DESCRIPTION Normal [facility] Comment on above: Order Comment: Speci men Type: SPECIMEN FROM PLEURA OBTAINED BY THORACENTESISOrdering Facility: Address: [address] [place] [address] Result Comment: A. P leural Cavity, [id number] cc opaque dark red fluid . ThinPrep and Cell Block prepared. Performed By: #### C YTONON ####[facility] LABCLIA [id number] [place] [address] [place] ORDER COMMENT Normal [facility] Comment on above: Order Comment: Speci men Type: SPECIMEN FROM PLEURA OBTAINED BY THORACENTESISOrdering Facility: Address: [address] [place] [address] Result Comment: Pre- op diagnosis:Pleural effusion [J90]Encounter for other preprocedural examination [Z01.818] Performed By: #### C YTONON ####[facility] LABCLIA [id number] [address] [place] OPERATIVE NOon 11-20-2023 OPERATIVE NO Normal [facility] SURGICAL PATHOLOGYon 024 CASE REPORT Normal [facility] Comment on above: Order Comment: Speci men Type: TISSUE SPECIMENOrdering Facility: Address: [address] [place] [address] Result Comment: [facility]urg [facility] Pathology Report Case: [id number] Provider: Ronaldo Simmons MD, PhD Collected: 11/20/2023 01:31 PMOrdering Location: Admitting Received: 11/20/2023 02:24 PMPathologist: Carter Pearce V, MDIntraop: Megan Grigsby MDSpecimens: A) - Pleura, Right, Biopsy, Right pleural biopsy B) - Pleura, Right, Biopsy, Right Pleural Bipsy Routine Performed By: #### S ####[facility] LABCLIA [id number] [place] [address] [place] CLINICAL HISTORY Normal [facility] Comment on above: Order Comment: Speci men Type: TISSUE SPECIMENOrdering Facility: Address: [address] [place] [address] Result Comment: Pre- op diagnosis:Pleural effusion [J90]Encounter for other preprocedural examination [Z01.818] Performed By: #### S ####[facility] LABCLIA [id number] [address] [place] DIAGNOSIS COMMENT Normal [facility] Comment on above: Order Comment: Speci men Type: TISSUE SPECIMENOrdering Facility: Address: [address] [place] [address] Result Comment: A. T he biopsy contains pleural tissue with chronic inflammation and focal reactive mesothelial hyperplasia. An immunohistochemical stain for BAP 1 shows retained nuclear expression of the mesothelial cells.B. The pleura shows areas with extensive granulation tissue associated with reactive mesenchymal mesothelial proliferation. Immunohistochemical stains were performed to exclude the possibility of mesothelial or vascular neoplasm. The mesothelial proliferation is positive for cytokeratin CAM 5.2, cytokeratin AE1/AE3, WT1, and focally for calretinin and smooth muscle actin. The cytokeratin stains do not show extension of the mesothelial proliferation into deeper adjacent tissues. All cells are negative for claudin-4. ERG highlights the vascular network of thin walled vessels arranged mostly perpendicular to the pleural surface. A BAP 1 stain shows retained nuclear expression. PU 1 highlights numerous histiocytes associated with the reactive proliferation.Drs. Della Subramanian and [facility]us [facility]a.[facility] have also reviewed this case and agree that there is no definitive evidence of malignancy.Laboratory Developed Test (LDT) Disclaimer:Performance characteristics of immunohistochemical, immunofluorescent and chromogenic in-situ hybridization tests have been determined by the performing laboratory within [facility]???s [facility] Pathology and Laboratory Medicine Department ([facility], [facility], [facility], [facility], [facility], [facility], or [facility]) in a manner consistent with CLIA requirements. One or more of these tests have not been cleared or approved by the FDA. [facility] is regulated under CLIA as qualified to perform high-complexity testing. These tests are used for clinical purposes. They should not be regarded as investigational or for research. Positive and negative controls stain appropriately. Performed By: #### S ####[facility] LABCLIA [id number] [address] [place] FINAL DIAGNOSIS Normal [facility] Comment on above: Order Comment: Speci men Type: TISSUE SPECIMENOrdering Facility: Address: [address] [place] [address] Result Comment: A. R ight pleura, biopsy:- Chronic pleuritis with mesothelial hyperplasia (see comment).B. Right pleura, biopsy:- Acute organizing and chronic pleuritis (see comment).TN/ 11/22/2023 Performed By: #### S ####[facility] LABCLIA [id number] [address] STATES OF [facility] FINAL PERFORMING LAB Normal [facility] Comment on above: Order Comment: Speci men Type: TISSUE SPECIMENOrdering Facility: Address: [address] [place] [address] Result Comment: Diag nostic interpretation performed at [facility], [address] [place] [address] CLIA# [id number] Director: Ramos Strickland M.D. Performed By: #### S ####[facility] LABCLIA [id number] [address] GROSS DESCRIPTION Normal [facility] Comment on above: Order Comment: Speci men Type: TISSUE SPECIMENOrdering Facility: Address: [address] [place] [address] Result Comment: Serenity Gracia leura, Right, BiopsyReceived fresh for intraoperative consultation labeled pleura, right, biopsy is a de la garza-pink soft tissue fragment measuring 1.1 x 0.6 x 0.1 cm. Specimen is submitted entirely for frozen evaluation in FS A1.LINDA 11/20/2023 2:29 PMGross examination performed at [facility], [address] [place] [address] CLIA# [id number]. Pleura, Right, BiopsyReceived in formalin labeled right pleural biopsy are multiple irregularly-shaped, red-yellow, rubbery tissue fragments aggregating to 1.1 x 0.8 x 0.2 cm. Entirely submitted in cassette B1.PEDRO November 21, 2023 9:24 AMGross examination performed at [facility], [address] [place], [place] [address] CLIA# [id number] Performed By: #### S ####[facility] LABCLIA [id number] [place] [address] [place] INTRAOPERATIVE DIAGNOSIS Normal [facility] Comment on above: Order Comment: Speci men Type: TISSUE SPECIMENOrdering Facility: Address: [address] [place] [address] Result Comment: Serenity vallecillora, Right, BiopsyFSA 1: Negative for malignancy. (Dr. Grigsby)Intraoperative diagnosis performed at [facility], [address] [place] [address] CLIA# [id number] Performed By: #### S ####[facility] LABCLIA [id number] [place] [address] [place] XR CHEST 1V FRONTAL PORTon 0 11-20-2023 XR CHEST 1V FRONTAL PORT Normal [facility] CBC W Auto Differential pane l (Bld)on 11-12-2023 Basophils (Bld) [#/Vol] 0.04 10*3/uL Normal <0.11 [facility] Comment on above: Order Comment: Speci men Type: BLOOD SPECIMENOrdering Facility: Address: [address] [place] [address] Performed By: #### 5 7021-8 ####[facility] LABCLIA [id number] [place] [address] [place] Basophils/100 WBC (Bld) 0.5 % Normal [facility] Comment on above: Order Comment: Speci men Type: BLOOD SPECIMENOrdering Facility: Address: [address] [place] [address] Performed By: #### 5 7021-8 ####[facility] LABCLIA [id number] [place] [address] [place] Differential cell count method Nom (Bld) Auto Normal [facility] Comment on above: Order Comment: Speci men Type: BLOOD SPECIMENOrdering Facility: Address: [address] [place] [address] Performed By: #### 5 7021-8 ####[facility] LABCLIA [id number] [place] [address] [place] Eosinophils (Bld) [#/Vol] 10*3/uL Normal <0.46 [facility] Comment on above: Order Comment: Speci men Type: BLOOD SPECIMENOrdering Facility: Address: [address] [place] [address] Performed By: #### 5 7021-8 ####[facility] LABCLIA [id number] [place] [address] [place] Eosinophils/100 WBC (Bld) 0.0 % Normal [facility] Comment on above: Order Comment: Speci men Type: BLOOD SPECIMENOrdering Facility: Address: [address] [place] [address] Performed By: #### 5 7021-8 ####[facility] LABIA [id number] [place] [address] [place] Erythrocyte distribution width (RBC) [Ratio] 14.7 % Normal 11.5-15.0 [facility] Comment on above: Order Comment: Speci men Type: BLOOD SPECIMENOrdering Facility: Address: [address] [place] [address] Performed By: #### 5 7021-8 ####[facility] LABCLIA [id number] [place] [address] [place] Hematocrit (Bld) [Volume fraction] 42.2 % Normal 39.0-51.0 [facility] Comment on above: Order Comment: Speci men Type: BLOOD SPECIMENOrdering Facility: Address: [address] [place] [address] Performed By: #### 5 7021-8 ####[facility] LABCLIA [id number] [place] [address] [place] Hemoglobin (Bld) [Mass/Vol] 13.3 g/dL Normal 13.0-17.0 [facility] Comment on above: Order Comment: Speci men Type: BLOOD SPECIMENOrdering Facility: Address: [address] [place] [address] Performed By: #### 5 7021-8 ####[facility] LABCLIA [id number] [place] [address] [place] Immature granulocytes (Bld) [#/Vol] 0.04 10*3/uL Normal <0.10 [facility] Comment on above: Order Comment: Speci men Type: BLOOD SPECIMENOrdering Facility: Address: [address] [place] [address] Performed By: #### 5 7021-8 ####[facility] LABIA [id number] [place] [address] [place] Immature granulocytes/100 WBC (Bld) 0.5 % Normal [facility] Comment on above: Order Comment: Speci men Type: BLOOD SPECIMENOrdering Facility: Address: [address] [place] [address] Performed By: #### 5 7021-8 ####[facility] LABIA [id number] [place] [address] [place] Lymphocytes (Bld) [#/Vol] 1.54 10*3/uL Normal 1.00-4.00 [facility] Comment on above: Order Comment: Speci men Type: BLOOD SPECIMENOrdering Facility: Address: [address] [place] [address] Performed By: #### 5 7021-8 ####[facility] LABIA [id number] [place] [address] [place] Lymphocytes/100 WBC (Bld) 17.5 % Normal [facility] Comment on above: Order Comment: Speci men Type: BLOOD SPECIMENOrdering Facility: Address: [address] [place] [address] Performed By: #### 5 7021-8 ####[facility] LABIA [id number] [place] [address] [place] MCH (RBC) [Entitic mass] 29.9 pg Normal 26.0-34.0 [facility] Comment on above: Order Comment: Speci men Type: BLOOD SPECIMENOrdering Facility: Address: [address] [place] [address] Performed By: #### 5 7021-8 ####[facility] [id number] [place] [address] [place] MCHC (RBC) [Mass/Vol] 31.5 g/dL Normal 30.5-36.0 [facility] Comment on above: Order Comment: Speci men Type: BLOOD SPECIMENOrdering Facility: Address: [address] [place] [address] Performed By: #### 5 7021-8 ####[facility] [id number] [place] [address] [place] MCV (RBC) [Entitic vol] 94.8 fL Normal 80.0-100.0 [facility] Comment on above: Order Comment: Speci men Type: BLOOD SPECIMENOrdering Facility: Address: [address] [place] [address] Performed By: #### 5 7021-8 ####[facility] [id number] [place] [address] [place] Monocytes (Bld) [#/Vol] 0.99 10*3/uL High <0.87 [facility] Comment on above: Order Comment: Speci men Type: BLOOD SPECIMENOrdering Facility: Address: [address] [place] [address] Performed By: #### 5 7021-8 ####[facility] LABCLIA [id number] [place] [address] [place] Monocytes/100 WBC (Bld) 11.3 % Normal [facility] Comment on above: Order Comment: Speci men Type: BLOOD SPECIMENOrdering Facility: Address: [address] [place] [address] Performed By: #### 5 7021-8 ####[facility] LABCLIA [id number] [place] [address] [place] Neutrophils (Bld) [#/Vol] 6.18 10*3/uL Normal 1.45-7.50 [facility] Comment on above: Order Comment: Speci men Type: BLOOD SPECIMENOrdering Facility: Address: [address] [place] [address] Performed By: #### 5 7021-8 ####[facility] LABCLIA [id number] [place] [address] [place] Neutrophils/100 WBC (Bld) 70.2 % Normal [facility] Comment on above: Order Comment: Speci men Type: BLOOD SPECIMENOrdering Facility: Address: [address] [place] [address] Performed By: #### 5 7021-8 ####[facility] LABCLIA [id number] [place] [address] [place] Nucleated RBC (Bld) [#/Vol] 10*3/uL Normal <0.01 [facility] Comment on above: Order Comment: Speci men Type: BLOOD SPECIMENOrdering Facility: Address: [address] [place] [address] Performed By: #### 5 7021-8 ####[facility] LABCLIA [id number] [place] [address] [place] Nucleated RBC/100 WBC (Bld) [Ratio] 0.0 /100 WBC Normal [facility] Comment on above: Order Comment: Speci men Type: BLOOD SPECIMENOrdering Facility: Address: [address] [place] [address] Performed By: #### 5 7021-8 ####[facility] LABCLIA [id number] [place] [address] [place] Platelet mean volume (Bld) [Entitic vol] 10.3 fL Normal 9.0-12.7 [facility] Comment on above: Order Comment: Speci men Type: BLOOD SPECIMENOrdering Facility: Address: [address] [place] [address] Performed By: #### 5 7021-8 ####[facility] LABCLIA [id number] [place] [address] [place] Platelets (Bld) [#/Vol] 228 10*3/uL Normal 150-400 [facility] Comment on above: Order Comment: Speci men Type: BLOOD SPECIMENOrdering Facility: Address: [address] [place] [address] Performed By: #### 5 7021-8 ####[facility] LABCLIA [id number] [place] [address] [place] RBC (Bld) [#/Vol] 4.45 10*6/uL Normal 4.20-6.00 [facility] Comment on above: Order Comment: Speci men Type: BLOOD SPECIMENOrdering Facility: Address: [address] [place] [address] Performed By: #### 5 7021-8 ####[facility] LABCLIA [id number] [place] [address] [place] WBC (Bld) [#/Vol] 8.79 10*3/uL Normal 3.70-11.00 [facility] Comment on above: Order Comment: Speci men Type: BLOOD SPECIMENOrdering Facility: Address: [address] [place] [address] Performed By: #### 5 7021-8 ####[facility] LABCLIA [id number] [place] [address] [place] CNOVon 11-12-2023 CNOV Normal [facility] CONFIRM BLOOD TYPEon 024 ABO A Normal [facility] Comment on above: Order Comment: Speci men Type: BLOOD SPECIMENOrdering Facility: Address: [address] [place] [address] Performed By: #### C ONABO ####[facility] BLOOD BANKCLIA [id number] [place] [address] [place] Rh Nom (Bld) Positive Normal [facility] Comment on above: Order Comment: Speci men Type: BLOOD SPECIMENOrdering Facility: Address: [address] [place] [address] Performed By: #### C ONABO ####[facility] BLOOD BANKCLIA [id number] [place] [address] [place] Comprehensive metabolic 2000 panelon 11-12-2023 Albumin [Mass/Vol] 4.3 g/dL Normal 3.9-4.9 [facility] Comment on above: Order Comment: Speci men Type: BLOOD SPECIMENOrdering Facility: Address: [address] [place] [address] Performed By: #### 2 4323-8 ####[facility] LABCLIA [id number] [place] [address] [place] ALP [Catalytic activity/Vol] 82 U/L Normal 38-113 [facility] Comment on above: Order Comment: Speci men Type: BLOOD SPECIMENOrdering Facility: Address: [address] [place] [address] Performed By: #### 2 4323-8 ####[facility] LABCLIA [id number] [place] [id number] [place] ALT [Catalytic activity/Vol] 23 U/L Normal 10-54 [facility] Comment on above: Order Comment: Speci men Type: BLOOD SPECIMENOrdering Facility: Address: [address] [place] [address] Performed By: #### 2 4323-8 ####[facility] LABCLIA [id number] [place] [address] [place] Anion gap [Moles/Vol] 12 mmol/L Normal 9-18 [facility] Comment on above: Order Comment: Speci men Type: BLOOD SPECIMENOrdering Facility: Address: [address] [place] [address] Performed By: #### 2 4323-8 ####[facility] LABCLIA [id number] [place] [address] [place] AST [Catalytic activity/Vol] 29 U/L Normal 14-40 [facility] Comment on above: Order Comment: Speci men Type: BLOOD SPECIMENOrdering Facility: Address: [address] [place], [place] [address] Performed By: #### 2 4323-8 ####[facility] LABCLIA [id number] [place] [address] [place] Bilirubin [Mass/Vol] 0.7 mg/dL Normal 0.2-1.3 [facility] Comment on above: Order Comment: Speci men Type: BLOOD SPECIMENOrdering Facility: Address: [address] [place], [place] [address] Performed By: #### 2 4323-8 ####[facility] LABCLIA [id number] [place] [id number] [place] Calcium [Mass/Vol] 9.5 mg/dL Normal 8.5-10.2 [facility] Comment on above: Order Comment: Speci men Type: BLOOD SPECIMENOrdering Facility: Address: [address] [place] [address] Performed By: #### 2 4323-8 ####[facility] LABCLIA [id number] [place] [address] [place] Chloride [Moles/Vol] 106 mmol/L High 97-105 [facility] Comment on above: Order Comment: Speci men Type: BLOOD SPECIMENOrdering Facility: Address: [address] [place] [address] Performed By: #### 2 4323-8 ####[facility] LABCLIA [id number] [place] [address] [place] CO2 [Moles/Vol] 24 mmol/L Normal 22-30 [facility] Comment on above: Order Comment: Speci men Type: BLOOD SPECIMENOrdering Facility: Address: [address] [place] [address] Performed By: #### 2 4323-8 ####[facility] LABCLIA [id number] [place] [address] [place] Creatinine [Mass/Vol] 0.99 mg/dL Normal 0.73-1.22 [facility] Comment on above: Order Comment: Speci men Type: BLOOD SPECIMENOrdering Facility: Address: [address] [place] [address] Performed By: #### 2 4323-8 ####[facility] LABCLIA [id number] [place] [address] [place] Creatinine and Glomerular filtration rate.predicted panel (S/P/Bld) 81 mL/min/1.73m??? Normal >=60 [facility] Comment on above: Order Comment: Speci men Type: BLOOD SPECIMENOrdering Facility: Address: [address] [place] [address] Result Comment: Kristel mated Glomerular Filtration Rate (eGFR) is calculated using the 2020 CKD-EPI creatinine equation. This equation utilizes serum creatinine, sex, and age as parameters. The creatinine assay has traceable calibration to isotope dilution-mass spectrometry. Refer to KDIGO guidelines for clinical interpretation. In patients with unstable renal function, e.g. those with acute kidney injury, the eGFR may not accurately reflect actual GFR. Performed By: #### 2 4323-8 ####[facility] LABCLIA [id number] [place] [address] [place] Glucose [Mass/Vol] 108 mg/dL High 74-99 [facility] Comment on above: Order Comment: Alexandru campos Type: BLOOD SPECIMENOrdering Facility: Address: [address] [place] [address] Result Comment: The [place] Diabetes Association (ADA) provides guidance for cutoff values for fasting glucose and random glucose. The ADA defines fasting as no caloric intake for at least 8 hours. Fasting plasma glucose results between 100 to 125 mg/dL indicate increased risk for diabetes (prediabetes).Fasting plasma glucose results greater than or equal to 126 mg/dL meet the criteria for diagnosis of diabetes. In the absence of unequivocal hyperglycemia, results should be confirmed by repeat testing. In a patient with classic symptoms of hyperglycemia or hyperglycemic crisis, random plasma glucose results greater than or equal to 200 mg/dL meet the criteria for diagnosis of diabetes.Reference: Standards of Medical Care in Diabetes 2016, [place] [employer]. Diabetes Care. 2016.39(Suppl 1). Performed By: #### 2 4323-8 ####[facility] LABIA [id number] [place] [address] [place] Potassium [Moles/Vol] 4.6 mmol/L Normal 3.7-5.1 [facility] Comment on above: Order Comment: Alexandru campos Type: BLOOD SPECIMENOrdering Facility: Address: [address] [place] [address] Performed By: #### 2 4323-8 ####[facility] LABCLIA [id number] [place] [address] [place] Protein [Mass/Vol] 7.0 g/dL Normal 6.3-8.0 [facility] Comment on above: Order Comment: Speci men Type: BLOOD SPECIMENOrdering Facility: Address: [address] [place] [address] Performed By: #### 2 4323-8 ####[facility] LABCLIA [id number] [place] [id number] [place] Sodium [Moles/Vol] 142 mmol/L Normal 136-144 [facility] Comment on above: Order Comment: Speci men Type: BLOOD SPECIMENOrdering Facility: Address: [address] [place] [address] Performed By: #### 2 4323-8 ####[facility] LABCLIA [id number] [place] [address] [place] Urea nitrogen [Mass/Vol] 22 mg/dL Normal 9-24 [facility] Comment on above: Order Comment: Speci men Type: BLOOD SPECIMENOrdering Facility: Address: [address] [place] [address] Performed By: #### 2 4323-8 ####[facility] LABCLIA [id number] [place] [address] [place] ECG COMPLETEon 11-12-2023 ECG COMPLETE Normal [facility] NM CARDIAC PERF STRESS/PHARM on 11-12-2023 NM CARDIAC PERF STRESS/PHARM Normal [facility] NM Heart Perfusion W stress and W radionuclide Scarlett 11-12-2023 * * *Final Report* * * DATE OF EXAM: Nov 12 2023 11:59AM N 0006 - NM CARDIAC PERF STRESS/PHARM / PROCEDURE REASON: multiple diagnoses * * * * Physician Interpretation * * * * Stress Waste Recycler Report: [facility] Date of service: 11/12/2023 10:35:44 AM Supervising physician: Jose Dawson MD PATIENT: Name: SAV RAYMUNDO Age: 73 years Gender: M The supervising physician was in the department and immediately available. * * * Final * * * PATIENT: Name: SAV RAYMUNDO Age: 73 years Gender: M CONCLUSIONS: 1. SPECT Perfusion Study: Normal. 2. There is no scintigraphic evidence for inducible ischemia. 3. No evidence of scarred myocardium. 4. Left ventricle is normal in size. The left ventricle systolic function is normal. 5. Right ventricle is normal in size. The right ventricle systolic function is normal. 6. This is a low risk scan. Gated Stress FBP Gated Rest FBP LVEF % 67 54 Prior Study Comparison No prior nuclear cardiology exam available for comparison. Nuclear Med Report:1-Day Gated SPECT Myocardial Perfusion with Regadenoson Stress: Myocardial perfusion imaging was performed at rest 30 minutes following the IV injection of the radiotracer. The patient received 0.4 mg of regadenoson, via rapid IV push, immediately followed by radiotracer IV. Gated post stress tomographic imaging was performed 30 to 60 minutes later. See administered radiotracer and doses below. [facility] Date of service: 11/12/2023 10:35:44 AM Ordering Physician: RONALDO SIMMONS. Requesting Physician: RONALDO SIMMONS Indication: Assessment for suspected CAD Interpreting physician: Jose Dawson MD Height: 182.88 cm BSA: 2.27 m Weight: 101.15 kg BMI: 30.2 kg/m CT Dose-Length Product(DLP): 22.0 mGy * cm. CT Dose Reduction Employed: Yes. Exam Type: Rest Stress Radiopharm: Tc-99m Tetrofosmin Tc-99m Tetrofosmin Dosage(mCi): 11.8 41.8 Atten Correction: performed Stress Agent: Regadenoson 0.4mg Supply provided from [facility] Resting Blood Press: 140/92 mmHg Image Quality The overall study imaging quality was deemed to be good. FINDINGS: Left Ventricle Wall Motion: Stress IR:3D - All segments are normal. Rest IR:3D - Gated Stress FBP - Gated Rest FBP - Reversibility - Stress IR:3D Stress IR:3D Gated Stress FBP Gated Rest FBP LVEF: 67 % 54 % ED Volume: 96 ml 91 ml ES Volume: 32 ml 42 ml TID: 1.16 Perfusion Findings Stress IR:3D - Summed Score=0 All segments demonstrate normal perfusion. Rest IR:3D - Summed Score=0 All segments demonstrate normal perfusion. Stress IR:3D Rest IR:3D Summed Score=0 Summed Score=0 LEFT VENTRICLE The left ventricle is normal in size. Left ventricular systolic function is normal. Right Ventricle The right ventricle is normal in size. Right ventricle systolic function is normal. Stress Test Findings: There is no scintigraphic evidence for inducible ischemia. There is no evidence of scarring. * * * Final * * * NM CTAC Report: [facility] Date of service: 11/12/2023 10:35:44 AM CTAC interpreting physician: Jose Dawson MD PATIENT: Name: SAV RAYMUNDO Age: 73 years Gender: M 1. Incidental Findings from limited non-diagnostic CTAC: - Coronary calcifications visualized. large right pleural effusion better evaluated on dedicated chest imaging * * * Final * * * Stress ECG Report: [facility] Date of service: 11/12/2023 10:35:44 AM Ordering physician: RONALDO SIMMONS refractory specialist: Joan Almendarez Fruit Tester: Solange Mosley Interpreting physician: Jose Dawson MD Patient name: SAV RAYMUNDO Age: 73 years Gender: M Height: 182.88 cm BSA: 2.27 m Weight: 101.15 kg BMI: 30.2 kg/m Indication: Encounter for pre-procedural cardiovascular examination for non-cardiac surgery Stress ECG Conclusion: Conclusion: Normal Comments: Non-specific T wave abnormality at rest and (more content not included)... DIVISION OF RADIOLOGY Provider, Alice Leonard Erie - 11/12/2023 * * *Final Report* * * DATE OF EXAM: Nov 12 2023 11:59AM [facility] 0006 - [place] CARDIAC PERF STRESS/PHARM / PROCEDURE REASON: multiple diagnoses * * * * Physician Interpretation * * * * Stress Waste Recycler Report: [facility] Date of service: 11/12/2023 10:35:44 AM Supervising physician: Jose Dawson MD PATIENT: Name: SAV RAYMUNDO Age: 73 years Gender: M The supervising physician was in the department and immediately available. * * * Final * * * PATIENT: Name: SAV RAYMUNDO Age: 73 years Gender: M CONCLUSIONS: 1. SPECT Perfusion Study: Normal. 2. There is no scintigraphic evidence for inducible ischemia. 3. No evidence of scarred myocardium. 4. Left ventricle is normal in size. The left ventricle systolic function is normal. 5. Right ventricle is normal in size. The right ventricle systolic function is normal. 6. This is a low risk scan. Gated Stress FBP Gated Rest FBP LVEF % 67 54 Prior Study Comparison No prior nuclear cardiology exam available for comparison. Nuclear Med Report:1-Day Gated SPECT Myocardial Perfusion with Regadenoson Stress: Myocardial perfusion imaging was performed at rest 30 minutes following the IV injection of the radiotracer. The patient received 0.4 mg of regadenoson, via rapid IV push, immediately followed by radiotracer IV. Gated post stress tomographic imaging was performed 30 to 60 minutes later. See administered radiotracer and doses below. [facility] Date of service: 11/12/2023 10:35:44 AM Ordering Physician: RONALDO SIMMONS. Requesting Physician: RONALDO SIMMONS Indication: Assessment for suspected CAD Interpreting physician: Jose Dawson MD Height: 182.88 cm BSA: 2.27 m Weight: 101.15 kg BMI: 30.2 kg/m CT Dose-Length Product(DLP): 22.0 mGy * cm. CT Dose Reduction Employed: Yes. Exam Type: Rest Stress Radiopharm: Tc-99m Tetrofosmin Tc-99m Tetrofosmin Dosage(mCi): 11.8 41.8 Atten Correction: performed Stress Agent: Regadenoson 0.4mg Supply provided from [facility] Resting Blood Press: 140/92 mmHg Image Quality The overall study imaging quality was deemed to be good. FINDINGS: Left Ventricle Wall Motion: Stress IR:3D - All segments are normal. Rest IR:3D - Gated Stress FBP - Gated Rest FBP - Reversibility - Stress IR:3D Stress IR:3D Gated Stress FBP Gated Rest FBP LVEF: 67 % 54 % ED Volume: 96 ml 91 ml ES Volume: 32 ml 42 ml TID: 1.16 Perfusion Findings Stress IR:3D - Summed Score=0 All segments demonstrate normal perfusion. Rest IR:3D - Summed Score=0 All segments demonstrate normal perfusion. Stress IR:3D Rest IR:3D Summed Score=0 Summed Score=0 LEFT VENTRICLE The left ventricle is normal in size. Left ventricular systolic function is normal. Right Ventricle The right ventricle is normal in size. Right ventricle systolic function is normal. Stress Test Findings: There is no scintigraphic evidence for inducible ischemia. There is no evidence of scarring. * * * Final * * * [place] CTA Report: [facility] Date of service: 11/12/2023 10:35:44 AM CTAC interpreting physician: Jose Dawson MD PATIENT: Name: SAV RAYMUNDO Age: 73 years Gender: M 1. Incidental Findings from limited non-diagnostic CTAC: - Coronary calcifications visualized. large right pleural effusion better evaluated on dedicated chest imaging * * * Final * * * Stress ECG Report: [facility] Date of service: 11/12/2023 10:35:44 AM Ordering physician: RONALDO SIMMONS refractory specialist: Joan Almendarez Fruit Tester: Solange Mosley Interpreting physician: Jose Dawson MD Patient name: SAV RAYMUNDO Age: 73 years Gender: M Height: 182.88 cm BSA: 2.27 m Weight: 101.15 kg BMI: 30.2 kg/m Indication: Encounter for pre-procedural cardiovascular examination for non-cardiac surgery Stress ECG Conclusion: Conclusion: Normal Comments: Non-specific T wave abnormality at rest and post regadenoson stress Stress ECG Summary: The patient's resting heart rate was 88 bpm and blood pressure was 140/92 mmHg. The test was terminated due to end of protocol. No symptoms provoked during stress. The maximum heart rate was 96 bpm, which is 65% of the predicted heart rate for age. Peak bloo (more content not included)... [facility] NM Heart Perfusion W stress and W radionuclide IVOrdered By: [facility] Provider on 11-12-2023 [facility] No Panel Informationon 11-11 Radiology Study observation (narrative) [facility] OPERATIVE NOon 11-12-2023 OPERATIVE NO Normal [facility] PT panel Coag (PPP)on 2023 INR Coag (PPP) [Relative time] 1.1 {INR} Normal 0.9-1.3 [facility] Comment on above: Order Comment: Speci men Type: BLOOD SPECIMENOrdering Facility: Address: [address] [place] [address] Result Comment: Elsa min K Antagonist (VKA) Therapeutic Range: INR 2 to 3 (Target INR of 2.5)Note: For patients treated with VKA drugs, such as warfarin, the [place] [employer] 2012 Guideline recommends a therapeutic INR range of 2 to 3 (target INR of 2.5). This recommendation includes high-risk patients with antiphospholipid syndrome with previous arterial or venous thromboembolism, current-generation mechanical or bioprosthetic aortic heart valve replacement.Note: Patients with mechanical aortic valve replacement and additional risk factors for thromboembolic events (atrial fibrillation, previous thromboembolism, LV dysfunction, hypercoagulable conditions) or an older generation mechanical AVR (i.e., ball in-Cage) or any mechanical MVR should have a INR therapeutic range of 2.5 to 3.5 (target INR of 3).Camilla GH, et al. Chest 2012, 141:7S-47SNishimura RA, et al. [facility] 2017, 70: 252-289 Performed By: #### 3 4528-0, 98627-0 ####[facility] LABCLIA [id number] [place] [address] [place] PT Coag (PPP) [Time] 12.0 s Normal 9.7-13.0 [facility] Comment on above: Order Comment: Speci men Type: BLOOD SPECIMENOrdering Facility: Address: [address] [place] [address] Performed By: #### 3 4528-0, 92468-6 ####[facility] LABCLIA [id number] [place] [address] [place] STAPHYLOCOCCUS AUREUS AND MR SA SCREEN, PCR, NASALon 11-12-2023 S. aureus and MRSA panel BRYN+probe (Nose) Methicillin-SUSCEPTIBLE Staphylococcus aureus Detected Abnormal Not Detected [facility] Comment on above: Order Comment: Speci men Type: SWABOrdering Facility: Address: [address] [place] [address] Performed By: #### S APCR ####[facility] LABCLIA [id number] [place] [address] [place] TYPE AND SCREEN,30 DAYon ABO A Normal [facility] Comment on above: Order Comment: Speci men Type: BLOOD SPECIMENOrdering Facility: Address: [address] [place] [address] Performed By: #### T SCR30 ####[facility] BLOOD BANKCLIA [id number] [place] [address] [place] HISTORICAL AB SCR STATUS Negative Normal [facility] Comment on above: Order Comment: Speci men Type: BLOOD SPECIMENOrdering Facility: Address: [address] [place] [address] Performed By: #### T SCR30 ####[facility] BLOOD BANKIA [id number] [place] [address] [place] Rh Nom (Bld) Positive Normal [facility] Comment on above: Order Comment: Speci men Type: BLOOD SPECIMENOrdering Facility: Address: [address] [place] [address] Performed By: #### T SCR30 ####[facility] BLOOD BANKIA [id number] [place] [address] [place] URINALYSIS, DIPSTICK ONLYon 11-12-2023 Bilirubin Ql (U) Negative Normal Negative [facility] Comment on above: Order Comment: Speci men Type: URINE SPECIMENOrdering Facility: Address: [address] [place] [address] Performed By: #### U A ####[facility] LABCLIA [id number] [place] [address] [place] Clarity (Unsp spec) Clear Normal Clear [facility] Comment on above: Order Comment: Speci men Type: URINE SPECIMENOrdering Facility: Address: [address] [place] [address] Performed By: #### U A ####[facility] LABCLIA [id number] [place] [address] [place] Color (U) Yellow Normal Yellow [facility] Comment on above: Order Comment: Speci men Type: URINE SPECIMENOrdering Facility: Address: [address] [place] [address] Performed By: #### U A ####[facility] LABCLIA [id number] [place] [address] [place] Glucose Test strip (U) [Mass/Vol] Negative Normal Negative [facility] Comment on above: Order Comment: Speci men Type: URINE SPECIMENOrdering Facility: Address: [address] [place] [address] Performed By: #### U A ####[facility] LABCLIA [id number] [place] [address] [place] Hemoglobin Ql (U) Negative Normal Negative [facility] Comment on above: Order Comment: Speci men Type: URINE SPECIMENOrdering Facility: Address: [address] [place] [address] Performed By: #### U A ####[facility] LABCLIA [id number] [place] [address] [place] Ketones Ql (U) Negative Normal Negative [facility] Comment on above: Order Comment: Speci men Type: URINE SPECIMENOrdering Facility: Address: [address] [place] [address] Performed By: #### U A ####[facility] LABCLIA [id number] [place] [address] [place] Leukocyte esterase Test strip Ql (U) Negative Normal Negative [facility] Comment on above: Order Comment: Speci men Type: URINE SPECIMENOrdering Facility: Address: [address] [place] [address] Performed By: #### U A ####[facility] LABCLIA [id number] [place] [address] [place] Nitrite Ql (U) Negative Normal Negative [facility] Comment on above: Order Comment: Speci men Type: URINE SPECIMENOrdering Facility: Address: [address] [place] [address] Performed By: #### U A ####[facility] LABIA [id number] [place] [address] [place] pH (U) 6.0 [pH] Normal <8.5 [facility] Comment on above: Order Comment: Speci men Type: URINE SPECIMENOrdering Facility: Address: [address] [place] [address] Performed By: #### U A ####[facility] LABIA [id number] [place] [address] [place] Protein (U) [Mass/Vol] Trace Abnormal Negative Cl [facility] Comment on above: Order Comment: Speci men Type: URINE SPECIMENOrdering Facility: Address: [address] [place] [address] Performed By: #### U A ####[facility] LABIA [id number] [place] [address] [place] Specific gravity (U) [Rel density] 1.022 Normal 1.005-1.030 [facility] Comment on above: Order Comment: Speci men Type: URINE SPECIMENOrdering Facility: Address: [address] [place] [address] Performed By: #### U A ####[facility] LABIA [id number] [place] [address] [place] Urobilinogen Ql (U) 1.0 EU/dL Normal 0.2-1.0 EU/dL [facility] Comment on above: Order Comment: Speci men Type: URINE SPECIMENOrdering Facility: Address: [address] [place] [address] Performed By: #### U A ####[facility] LABIA [id number] [place] [id number] [place] US Chest limitedon [facility] XR CHEST 2V FRONTAL/LATon XR CHEST 2V FRONTAL/LAT Normal [facility] aPTT PPPon 11-12-2023 aPTT Coag (PPP) [Time] 28.9 s Normal 23.0-32.4 Cl [facility] Comment on above: Order Comment: Speci men Type: BLOOD SPECIMENOrdering Facility: Address: [address] [place] [address] Performed By: #### 3 4528-0, 81880-8 ####[facility] LABCLIA [id number] [place] [address] [place] CNPNon 11-07-2023 CNPN Normal [facility] CNOVon 10-24-2023 CNOV Normal [facility] CNPNon 10-16-2023 CNPN Normal [facility] CNPNon 10-15-2023 CNPN Normal [facility] Determination of appearance of body fluidon 10-01-2023 Appearance (Body fld) Hazy [facility] Evaluation of color of body fluidon 10-01-2023 Color (Body fld) Yellow . [facility] Comment on above: Colorless to Pale Ye llow/Straw Xander 10-01-2023 L Specimen: BC Received: 10/02/23 Status: MARITA Story Num: [id number] Spec Type: Cytology Subm Dr: Calin Gotti DO Tissues: A PLEURAL FLUID (RIGHT PLEURAL FLUID) Procedures: HE/2, Gross/Micro L4, Cyto Prepstain, PAPSTN Age/ Patient Sex Location Account Attending Physician Sav Raymundo 73/M LABELL [id number] Calin Gotti DO SPEC NUM: [id number] RECD: 10/02/23 STATUS: MARITA STORY NUM: [id number] HALLIE: 10/01/[address]: Calin Gotti DO ENTERED: 10/02/[address]: SPEC TYPE: Cytology DEPT: [facility] NCYT ENTERED BY: [id number] RECV BY: [id number] ORDERED: HE/2, Gross/Micro L4, Cyto Prepstain, PAPSTN [...] are prepared. 1 cell blocks are prepared. (NC/nh) Specimen: [id number] Received: 10/02/23 Status: MARITA Story Num: [id number] Spec Type: Cytology Subm Dr: Calin Gotti DO Tissues: A PLEURAL FLUID (RIGHT PLEURAL FLUID) Procedures: HE/2, Gross/Micro L4, Cyto Prepstain, PAPSTN Patient: Sav Raymundo [id number] (Continued) Signed (signature on file) Japsal Olmedo MD 10/03/23 1259 Normal [facility] Laboratory - Microbiology an d Antimicrobial susceptibilityOrdered By: Yuli Mariscal on 10-01-2023 Microscopic observation Gram stain Nom (Unsp spec) [facility] Manual body fluid eosinophil s/100 leukocyteson 10-01-2023 Eosinophils/100 WBC Manual cnt (Body fld) 0 % Not Estab. [facility] Comment on above: Performed at: [address] [id number] Director: Norm Alcaraz PhD, Phone: [phone] Manual body fluid lymphocyte s/100 leukocyteson 10-01-2023 Lymphocytes/100 WBC Manual cnt (Body fld) 39 % Not Estab. [facility] Neutrophils/100 WBC Manual c nt (Body fld)on 10-01-2023 Neutrophils/100 WBC (Body fld) 5 % 0-24 [facility] No Panel InformationOrdered By: Yuli Mariscal on 10-01-2023 Acid Fast Smear [facility] AFB Specimen Processing [facility] No Panel Informationon 09-30 Body Fluid Comment TNP . [place] Body Fluid Glucose 113 mg/dL . [place] Comment on above: : BODY FLUID TYPE [...] 76 - 288 : : : : [place] WAdeel V. Reference Intervals for Adults and Children 2008. Ninth edition (V9.1) [employer], [facility]; [place]: December 2008. Body Fluid Lining Cell TNP . [facility] Body Fluid Macrophages (%) 56 % Not Estab. [facility] Body Fluid pH TNP . [facility] Comment on above: Test not performed. Test is not approved for the collectionsite indicated.This test was developed and its performance characteristicsdetermined by [employer]. It has not been cleared orapproved by the Food and Drug Administration.The reference interval(s) and other method performance specificationshave not been established for this body fluid. The test result must beintegrated into the clinical context for interpretation.Performed at: [address] [id number] Director: Yan Escamilla MD, Phone: [phone] Body Fluid RBC 7000 /uL Not Estab. [facility] Body Fluid Total Nucleated Cells 1307 /mm3 0-499 [facility] Comment on above: Pleural Fluid, with <1000 Nucleated cells/uL has beenassociated with transudates while >1000 uL may be seenin exudates. Body Fluid Total Protein 3.7 g/dL . [facility] Comment on above: : BODY FLUID [...] and Children 2008. Ninth Edition (V9.1) [employer], [facility]; [place]: December 2008.Performed at: - [facility] [id number] Director: Norm Alcaraz PhD, Phone: [phone] Fungal Smear Result [facility] Miscellaneous Test Comment See comment [facility] Comment on above: Specimen Source: PL - Pleural Fluid - Pleural Fl - 401.000 Estimated glomerular filtrat ion rate (GFR) non- Americanon 09-11-2023 GFR/1.73 sq M.predicted among non-blacks MDRD (S/P/Bld) [Vol rate/Area] mL/min/{1.73_m2} >=60 [facility] Laboratory - Chemistry and C hemistry - challengeon 09-11-2023 Creatinine [Mass/Vol] 1.02 mg/dL 0.70-1.30 [facility] GFR/1.73 sq M.predicted MDRD (S/P/Bld) [Vol rate/Area] mL/min/{1.73_m2} >=60 [facility] Body fluid differential cell countOrdered By: Calin Gotti on 09-04-2023 Differential panel (Body fld) 50 % [facility] Comment on above: The reference interv al and other method performance specifications have not been established for this body fluid. The test result must be integrated into the clinical context for interpretation. Cell Count/Diff, Fluidon Appearance, Fluid Hazy Normal [facility] Comment on above: Order Comment: Body Fluid Source: Pleural Fluid Body Fluid Site: PLEURAL FLUID Result Comment: The reference interval and other method performance specifications have not been established for this body fluid. The test result must be integrated into the clinical context for interpretation. Performed By: #### F LCCDIFF #### [place] [address] [place] Color, Fluid Red-Brown Normal [facility] Comment on above: Order Comment: Body Fluid Source: Pleural Fluid Body Fluid Site: PLEURAL FLUID Result Comment: The reference interval and other method performance specifications have not been established for this body fluid. The test result must be integrated into the clinical context for interpretation. Performed By: #### F LCCDIFF #### [place] [address] [place] Color, Fluid Supernatant Red-Brown Normal [facility] Comment on above: Order Comment: Body Fluid Source: Pleural Fluid Body Fluid Site: PLEURAL FLUID Result Comment: The reference interval and other method performance specifications have not been established for this body fluid. The test result must be integrated into the clinical context for interpretation. Performed By: #### F LCCDIFF #### [address] Eosinophils, Fluid 0 /100{WBC} Normal 0-3 [facility] Comment on above: Order Comment: Body Fluid Source: Pleural Fluid Body Fluid Site: PLEURAL FLUID Result Comment: PERF ORMED BY: [place] [address] PATHOLOGIST BATTERY TEST ENGINEER KATHY HENDRICKSON M.D. Performed By: #### F LCCDIFF #### [address] Lymphocytes, Fluid 38 % Normal [facility] Comment on above: Order Comment: Body Fluid Source: Pleural Fluid Body Fluid Site: PLEURAL FLUID Result Comment: The reference interval and other method performance specifications have not been established for this body fluid. The test result must be integrated into the clinical context for interpretation. Performed By: #### F LCCDIFF #### [place] [address] [place] Monocytes/Macrophages, Fluid 50 % Normal [facility] Comment on above: Order Comment: Body Fluid Source: Pleural Fluid Body Fluid Site: PLEURAL FLUID Result Comment: The reference interval and other method performance specifications have not been established for this body fluid. The test result must be integrated into the clinical context for interpretation. Performed By: #### F LCCDIFF #### [facility] [address] Neutrophil, Fluid 12 % Normal [facility] Comment on above: Order Comment: Body Fluid Source: Pleural Fluid Body Fluid Site: PLEURAL FLUID Result Comment: The reference interval and other method performance specifications have not been established for this body fluid. The test result must be integrated into the clinical context for interpretation. Performed By: #### F LCCDIFF #### [facility] [address] RBC, Fluid [address] /uL Normal [facility] Comment on above: Order Comment: Body Fluid Source: Pleural Fluid Body Fluid Site: PLEURAL FLUID Result Comment: The reference interval and other method performance specifications have not been established for this body fluid. The test result must be integrated into the clinical context for interpretation. Performed By: #### F LCCDIFF #### [address] TNC, Body Fluid 999 /uL Normal [facility] Comment on above: Order Comment: Body Fluid Source: Pleural Fluid Body Fluid Site: PLEURAL FLUID Result Comment: The reference interval and other method performance specifications have not been established for this body fluid. The test result must be integrated into the clinical context for interpretation. Performed By: #### F LCCDIFF #### [address] Color of Spun Body fluidOrde red By: Calin Gotti on 09-04-2023 Color (Spun body fld) Red-brown [facility] Comment on above: The reference interv al and other method performance specifications have not been established for this body fluid. The test result must be integrated into the clinical context for interpretation. Determination of appearance of body fluidOrdered By: Calin Gotti on 09-04-2023 Appearance (Body fld) Hazy [facility] Comment on above: The reference interv al and other method performance specifications have not been established for this body fluid. The test result must be integrated into the clinical context for interpretation. Evaluation of color of body fluidOrdered By: Calin Gotti on 09-04-2023 Color (Body fld) Red-brown [facility] Comment on above: The reference interv al and other method performance specifications have not been established for this body fluid. The test result must be integrated into the clinical context for interpretation. Xander 09-04-2023 L Specimen: [id number] Received: 09/06/23 Status: MARITA Story Num: [id number] Spec Type: Cytology Subm Dr: Calin Gotti DO Tissues: A PLEURAL FLUID (PLEUR) Procedures: HE/2, Gross/Micro L4, AE1-AE3, CALRETININ, CK20, CK 7, TTF1, Cyto Prepstain, NKX3.1, MOC31, SOX-10, PAPSTN Age/ Patient Sex Location Account Attending Physician KimberlyAdams Pepe 73/M LABELL [id number] Calin Gotti DO SPEC NUM: [id number] RECD: 09/06/23 STATUS: MARITA JEZ NUM: [id number] HALLIE: 09/04/[address]: Calin Gotti DO ENTERED: 09/06/[address] [facility] [address]: SPEC TYPE: Cytology DEPT: CNG ENTERED BY: [id number] RECV BY: [id number] ORDERED: HE/2, Gross/Micro L4, AE1-AE3, CALRETININ, CK20, [...] are prepared. 1 cell blocks are prepared. (NC/de) Specimen: [id number] Received: 09/06/23 Status: MARITA Story Num: [id number] Spec Type: Cytology Subm Dr: Calin Gotti DO Tissues: A PLEURAL FLUID (PLEUR) Procedures: HE/2, Gross/Micro L4, AE1-AE3, CALRETININ, CK20, CK 7, TTF1, Cyto Prepstain, NKX3.1, MOC31, SOX-10, PAPSTN Patient: Sav Raymundo [id number] (Continued) Signed (signature on file) Jaspal Olmedo MD 09/12/23 9888 Normal [facility] Laboratory - Chemistry and C hemistry - challengeon 09-04-2023 Cholesterol [Mass/Vol] 59 mg/dL <=200 [facility] Laboratory - Microbiology an d Antimicrobial susceptibilityOrdered By: Yuli Mariscal on 09-04-2023 Microscopic observation Gram stain Nom (Unsp spec) [facility] Manual body fluid eosinophil s/100 leukocytesOrdered By: Calin Gotti on 09-04-2023 Eosinophils/100 WBC Manual cnt (Body fld) 0 /100{WBC} 0-3 [facility] Manual body fluid erythrocyt es count (number/volume)Ordered By: Calin Gotti on 09-04-2023 RBC Manual cnt (Body fld) [#/Vol] 68736 /uL [facility] Comment on above: The reference interv al and other method performance specifications have not been established for this body fluid. The test result must be integrated into the clinical context for interpretation. Manual body fluid lymphocyte s/100 leukocytesOrdered By: Calin Gotti on 09-04-2023 Lymphocytes/100 WBC Manual cnt (Body fld) 38 % [facility] Comment on above: The reference interv al and other method performance specifications have not been established for this body fluid. The test result must be integrated into the clinical context for interpretation. Neutrophils/100 WBC Manual c nt (Body fld)Ordered By: Calin Gotti on 09-04-2023 Neutrophils/100 WBC (Body fld) 12 % [facility] Comment on above: The reference interv al and other method performance specifications have not been established for this body fluid. The test result must be integrated into the clinical context for interpretation. No Panel InformationOrdered By: Yuli Mariscal on 09-04-2023 Acid Fast Smear [facility] [employer] Specimen Processing [facility] No Panel Informationon 09-03 Body Fluid Amylase 20 U/L . [place] Comment on above: : BODY FLUID TYPE : AMYLASE : : : : : Lymph : 50 - 83 : : : : : Peritoneal : : : Fluid : 88 - 109 : : : : : Saliva : : : (Mixed Glands) : 84570 - 260508 : : : : [place]tag[place] W, Adeel V. Reference Intervals for Adults and Children 2007. Ninth Edition (V9.1) [employer] [facility]; [place]: December 2008.Performed at: CB - [address] [id number] Director: Norm Alcaraz PhD, Phone: [phone] Body Fluid Glucose 119 mg/dL . [place] Comment on above: : BODY FLUID TYPE [...] 76 - 288 : : : : [place]tag[place] W, Adeel V. Reference Intervals for Adults and Children 2008. Ninth edition (V9.1) [employer], [facility]; [place]: December 2008. Body Fluid pH 8.2 Not Estab. [facility] Comment on above: This test was develo ped and its performance characteristicsdetermined by [facility]. It has not been cleared orapproved by the Food and Drug Administration.The reference interval(s) and other method performance specificationshave not been established for this body fluid. The test result must beintegrated into the clinical context for interpretation.Performed at: [address] [id number] Director: Yan Escamilla MD, Phone: [phone] Body Fluid Total Protein 3.7 g/dL . [facility] Comment on above: : BODY FLUID [...] 0.8 - 0.9 : : : : [place] WA[place]el V. Reference Intervals for Adults and Children 2007. Ninth Edition (V9.1) [employer], [facility]; [place]: December 2008. Body Fluid Triglycerides 21 mg/dL Not Estab. [facility] Comment on above: The reference interv al(s) and other method performance specificationshave not been established for this body fluid. The test result must beintegrated into the clinical context for interpretation.Performed at: [facility] [address] [id number] Director: Norm Alcaraz PhD, Phone: [phone] Fungal Smear Result [facility] Miscellaneous Test Comment See comment [facility] Comment on above: Specimen Source: PL - Pleural Fluid - Pleural Fl - 401.000 No Panel InformationOrdered By: Calin Gotti on 09-04-2023 Body Fluid Total Nucleated Cells 999 /uL [facility] Comment on above: The reference interv al and other method performance specifications have not been established for this body fluid. The test result must be integrated into the clinical context for interpretation. Serum or plasma free cefurox christine measurement (mass/volume)on 09-04-2023 Cefuroxime free [Mass/Vol] TNP . [facility] Comment on above: Test not performed. No serum gel received.Contacted Shelby at your facility 09/06/2023Test not performed. No serum gel received.Contacted Shreya at your facility 09/06/2023--- 09/06/23 1311 ---GREY Direct previously reported as: Test not performedTest not performed. No serum gel received.Contacted Shelby at your facility 09/06/2023 Serum or plasma rheumatoid f actor measurement (units/volume)on 09-04-2023 Rheumatoid factor Qn TNP [IU]/mL . [facility] Comment on above: Test not performed. No serum gel received.Contacted Shelby at your facility 09/06/2023Test not performed. No serum gel received.Contacted Shreya at your facility 09/06/2023--- 09/06/23 1311 ---RF previously reported as: Test not performed IU/mLTest not performed. No serum gel received.Contacted Shelby at your facility 09/06/2023 Adenosine monophosphate.cycl ic [Moles/Vol]on 08-28-2023 Cyclic Citrullinated Peptid IgG/IgA 1 units 0-19 [facility] Comment on above: Negative <20 Weak po sitive 20 - 39 Moderate positive 40 - 59 Strong positive >59Performed at: [employer] [place], [place] [id number] Director: Norm Alcaraz PhD, Phone: [phone] Negative <20 Weak po sitive 20 - 39 Moderate positive 40 - 59 Strong positive >59Performed at: [employer] [place], [place] [id number] Director: Norm Alcaraz PhD, Phone: [phone] Atypical perinuclear antineu trophil cytoplasmic antibodies measurementon 08-28-2023 Neutrophil cytoplasmic Ab.perinuclear.atypica l IF (S) [Titer] <1:20 titer Neg:<1:20 [facility] Comment on above: The atypical pANCA p attern has been observed in asignificant percentage of patients with ulcerative colitis,primary sclerosing cholangitis and autoimmune hepatitis.Performed at: - [facility] [id number] Director: Yan Escamilla MD, Phone: [phone] at: [facility] [address] [id number] Director: Norm Alcaraz PhD, Phone: [phone] Histoplasma capsulatum antib olga detection by complement fixationon 08-28-2023 H. capsulatum Ab CF Ql (S) Negative Neg:<1:2 [facility] Comment on above: Performed at: [facility] [address] [id number] Director: Yan Escamilla MD, Phone: [phone] Myeloperoxidase Ab [Units/vo lume] in Serum by Immunoassayon 08-28-2023 Myeloperoxidase Ab IA Qn (S) <0.2 units 0.0-0.9 [facility] No Panel Informationon 08-27 Miscellaneous Test COMMENT . [place] Comment on above: Test Ordered: [id number] [place] A IgG/IgM AntibodyCoxsackie A7 IgG 1:100 [...] Negative titer BN Reference Range: Neg:<1:10Performed at: [facility], [place] [id number] Director: Yan Escamilla MD, Phone: [phone] at: [address] [id number] Director: Norm Alcaraz PhD, Phone: [phone] Perinuclear ANCA (p-ANCA) Antibody <1:20 titer Neg:<1:20 [facility] Comment on above: The presence of posi tive fluorescence exhibiting P-ANCA orC-ANCA patterns alone is not specific for the diagnosis ofWegener's Granulomatosis (WG) or microscopic polyangiitis.Decisions about treatment should not be based solely onANCA IFA results. The International ANCA Group Consensusrecommends follow up testing of positive sera with both TN-3 and MPO-ANCA enzyme immunoassays. As many as 5% serumsamples are positive only by EIA. Ref. AM J Clin Ejullg5560;111:507-513. Histoplasma Galactomannan Antigen Negative <0.5 ng/mL [facility] Comment on above: This test was develo ped and its performance characteristicsdetermined by [employer]. It has not been cleared orapproved by the Food and Drug Administration.Performed at: [facility] [employer] [place] [address], [place] [id number] Director: Janine Goodman MD, Phone: [phone] Proteinase 3 Ab [Units/volum e] in Serum by Immunoassayon 08-28-2023 Proteinase 3 Ab IA Qn (S) <0.2 units 0.0-0.9 [facility] SCL-70 extractable nuclear A b IA Qn (S)on 08-28-2023 Scl-70 (Scleroderma) Antibody <0.2 AI 0.0-0.9 [facility] Comment on above: Performed at: [facility] [address] [id number] Director: Norm Alcaraz PhD, Phone: [phone] Performed at: [facility] [address] [id number] Director: Norm Alcaraz PhD, Phone: [phone] Serum angiotensin converting enzyme (NANDO) measurementon 08-28-2023 Angiotensin converting enzyme [Catalytic activity/Vol] 34 U/L 14-82 [facility] Comment on above: Performed at: [employer] [place] [id number] Director: Norm Alcaraz PhD, Phone: [phone] Serum classic neutrophil cyt oplasmic antibody titer by immunofluorescenceon 08-28-2023 Neutrophil cytoplasmic Ab.classic IF (S) [Titer] <1:20 titer Neg:<1:20 [facility] Serum or plasma rheumatoid f actor measurement (units/volume)on 08-28-2023 Rheumatoid factor Qn [IU]/mL <14.[address] [facility] Comment on above: Performed at: [employer] [place], [place] [id number] Director: Norm Alcaraz PhD, Phone: [phone] Laboratory - Chemistry and C hemistry - challengeon 08-21-2023 Cobalamin (Vitamin B12) [Mass/Vol] 3286.0 pg/mL 193.0-986.0 [facility] TSH Qn 1.287 m[IU]/L 0.358-3.740 [facility] Laboratory - Hematology and Cell countson 08-21-2023 ESR (Bld) [Velocity] 126 mm/h <=[address] [facility] No Panel Informationon 08-20 C-Reactive Protein, Quantitative 4.28 mg/dL <=0.50 [facility] Folate 21.60 ng/mL 8.60-58.90 [facility] Serum or plasma free cefurox christine measurement (mass/volume)on 08-21-2023 Cefuroxime free [Mass/Vol] Negative Negative [facility] Comment on above: Performed at: [employer] [place], [place] [id number] Director: Norm Alcaraz PhD, Phone: [phone] Basophils Auto (Bld) [#/Vol] on 08-15-2023 Basophils (Bld) [#/Vol] 0.0 10 3/uL 0.0-0.1 [facility] Basophils/100 WBC Auto (Bld) on 08-15-2023 Basophils/100 WBC (Bld) 0.2 % 0.2-2.0 [facility] Eosinophils/100 WBC Auto (Bl d)on 08-15-2023 Eosinophils/100 WBC (Bld) 0.0 % 0.9-7.0 [facility] Erythrocyte distribution wid th Auto (RBC) [Ratio]on 08-15-2023 Erythrocyte distribution width (RBC) [Ratio] 12.5 % 11.0-15.0 [facility] Estimated glomerular filtrat ion rate (GFR) non- Americanon 08-15-2023 GFR/1.73 sq M.predicted among non-blacks MDRD (S/P/Bld) [Vol rate/Area] mL/min/{1.73_m2} >=60 [facility] Globulin Calc (S) [Mass/Vol] on 08-15-2023 Globulin (S) [Mass/Vol] 4.7 g/dL [facility] Hematocrit Auto (Bld) [Volum e fraction]on 08-15-2023 Hematocrit (Bld) [Volume fraction] 34.7 % 42.0-54.0 [facility] Hemoglobin [Mass/volume] in Bloodon 08-15-2023 Hemoglobin (Bld) [Mass/Vol] 11.2 g/dL 14.0-18.0 [facility] Laboratory - Chemistry and C hemistry - challengeon 08-15-2023 Albumin [Mass/Vol] 3.2 g/dL 3.4-5.0 [place] ALP [Catalytic activity/Vol] 66 U/L 46-116 [facility] ALT [Catalytic activity/Vol] 33 U/L 16-63 [facility] AST [Catalytic activity/Vol] 24 U/L 15-37 [facility] Bilirubin [Mass/Vol] 0.6 mg/dL 0.2-1.[address] [facility] Calcium [Mass/Vol] 8.9 mg/dL 8.5-10.1 [place] Chloride [Moles/Vol] 101 mmol/L 98-[address] [facility] CO2 [Moles/Vol] 27.4 mmol/L 21.0-32.0 [facility] Creatinine [Mass/Vol] 1.06 mg/dL 0.70-1.30 [facility] GFR/1.73 sq M.predicted MDRD (S/P/Bld) [Vol rate/Area] mL/min/{1.73_m2} >=60 [facility] Glucose [Mass/Vol] 115 mg/dL 74-106 [place] Natriuretic peptide B (Bld) [Mass/Vol] 397.0 pg/mL <=900.0 [facility] Potassium [Moles/Vol] 3.8 mmol/L 3.5-5.1 [facility] Protein [Mass/Vol] 7.9 g/dL 6.4-8.2 [place] Sodium [Moles/Vol] 138 mmol/L 136-145 [place] Urea nitrogen [Mass/Vol] 15.0 mg/dL 7.0-18.0 [facility] Urea nitrogen/Creatinine [Mass ratio] 14.2 mg/mg [facility] Laboratory - Hematology and Cell countson 08-15-2023 ESR (Bld) [Velocity] mm/h <=[address] [facility] Immature granulocytes/100 WBC (Bld) 0.4 % 0.0-0.5 [facility] - Microbiology an d Antimicrobial susceptibilityon 08-15-2023 SARS-CoV-2 (COVID-19) RNA BRYN+probe Ql (Unsp spec) Negative NEGATIVE [facility] Comment on above: This test has [...] Auto (Bld) [#/Vol] 9.9 10 3/uL 4.0-11.0 [facility] Lymphocytes Auto (Bld) [#/Vo l]on 08-15-2023 Lymphocytes (Bld) [#/Vol] 0.8 10 3/uL 1.2-3.8 [facility] Lymphocytes/100 WBC Auto (Bl d)on 08-15-2023 Lymphocytes/100 WBC (Bld) 8.0 % 20.5-60.0 [facility] MCH Auto (RBC) [Entitic mass ]on 08-15-2023 MCH (RBC) [Entitic mass] 32.3 pg 25.9-34.0 [facility] MCHC Auto (RBC) [Mass/Vol]on 08-15-2023 MCHC (RBC) [Mass/Vol] 32.3 g/dL 29.9-35.2 [facility] MCV Auto (RBC) [Entitic vol] on 08-15-2023 MCV (RBC) [Entitic vol] 100.0 fL 80.0-94.0 [facility] Monocytes Auto (Bld) [#/Vol] on 08-15-2023 Monocytes (Bld) [#/Vol] 1.0 10 3/uL 0.3-0.8 [facility] Monocytes/100 WBC Auto (Bld) on 08-15-2023 Monocytes/100 WBC (Bld) 9.9 % 1.7-12.0 [facility] Neutrophils Auto (Bld) [#/Vo l]on 08-15-2023 Neutrophils (Bld) [#/Vol] 8.1 10 3/uL 1.4-6.5 [facility] Neutrophils/100 WBC Auto (Bl d)on 08-15-2023 Neutrophils/100 WBC (Bld) 81.5 % 43.0-75.0 [facility] No Panel Informationon C-Reactive Protein, Quantitative 6.36 mg/dL <=0.50 [facility] Eosinophils # (Auto) 0.0 10 3/uL 0.0-0.7 [facility] Immature Granulocyte # (Auto) 0.04 10 3/uL 0.00-0.03 [facility] Troponin I High Sensitivity 11.9 pg/mL 4.0-76.1 [facility] Comment on above: CUT-OFF POINTS HAVE [...] INFORMATION. Bedside Influenza Type A Antigen Negative [facility] Comment on above: Negative for Flu A p rotein antigen. Infection due to Flu Acannot be ruled out. Flu A antigen in the sample may bebelow the detection limit of the test. Bedside Influenza Type B Antigen Negative [facility] Comment on above: Negative for Flu B p rotein antigen. Infection due to Flu Bcannot be ruled out. Flu B antigen in the sample may bebelow the detection limit of the test. Platelet mean volume Auto (B ld) [Entitic vol]on 08-15-2023 Platelet mean volume (Bld) [Entitic vol] 9.5 fL 9.5-13.5 [facility] Platelets Auto (Bld) [#/Vol] on 08-15-2023 Platelets (Bld) [#/Vol] 288 10 3/uL 150-450 [facility] RBC Auto (Bld) [#/Vol]on RBC (Bld) [#/Vol] 3.47 10 6/uL 4.70-6.10 [facility] Serum or plasma albumin/glob ulin mass ratioon 08-15-2023 Albumin/Globulin [Mass ratio] 0.7 {ratio} [facility] Serum or plasma anion gap de terminationon 08-15-2023 Anion gap [Moles/Vol] 13.4 mmol/L [facility] XR KNEE LEFT 4+ VIEWS (SPECI FY VIEWS IN COMMENTS)on 01-16-2023 XR KNEE LEFT 4+ VIEWS (SPECIFY VIEWS IN COMMENTS) X-rays of the left knee from [facility] taken today are reviewed. My personal interpretation [...] SatJan 16, 2023 10:52:01 AM EDT Normal [facility] Comment on above: Order Comment: Injur y/Trauma or Illness?:Illness/Other How long have you had these symptoms (acute/chronic)?:Unknown Reason for exam?:U History of cancer?:n/a Surgeries, chemotherapy, or radiation?:n/a Type of Exam?:Unknown Additional signs and symptoms?:U XR ANKLE LEFT 3+ VIEWS (WILLIE STYLES)on 08-28-2022 XR ANKLE LEFT 3+ VIEWS [...] the medial gutter, bilateral. Dictated by: MARGIE EDOUARD on SatAug 28, 2022 1:49:21 PM EDT Transcribed by: MARGIE EDOUARD on SatAug 28, 2022 1:49:21 PM EDT Finalized by: MARGIE EDOUARD on SatAug 28, 2022 1:49:21 PM EDT [facility] Comment on above: Order Comment: Injur y/Trauma [...] lesser toe deformities noted. Dictated by: MARGIE EDOUARD on SatAug 28, 2022 1:50:20 PM EDT Transcribed by: MARGIE EDOUARD on SatAug 28, 2022 1:50:20 PM EDT Finalized by: MARGIE EDOUARD on SatAug 28, 2022 1:50:20 PM EDT Normal [facility] Comment on above: Order Comment: [...] the medial gutter, bilateral. Dictated by: MARGIE EDOUARD on SatAug 28, 2022 1:49:28 PM EDT Transcribed by: MARGIE EDOUARD on SatAug 28, 2022 1:49:28 PM EDT Finalized by: MARGIE EDOUARD on SatAug 28, 2022 1:49:28 PM EDT [facility] Comment on above: Order Comment: Injur y/Trauma or Illness?:Illness/Other How long have you had these symptoms (acute/chronic)?:Unknown Reason for exam?:n/a History of cancer?:n/a Surgeries, chemotherapy, or radiation?:n/a Type of Exam?:Unknown Additional signs and symptoms?:n/a XR FOOT RIGHT 2 VIEWSon 03- XR FOOT RIGHT 2 VIEWS Weightbearing radi ographs of the right foot and ankle were obtained today's visit. The ankle mortise is intact without fracture or dislocation. There is a posterior calcaneal enthesophyte noted. There is mild arthritis at the first MTP joint. There are lesser toe deformities noted. Dictated by: MARGIE EDOUARD on SatAug 28, 2022 1:50:37 PM EDT Transcribed by: MARGIE EDOUARD on SatAug 28, 2022 1:50:37 PM EDT Finalized by: MARGIE EDOUARD on SatAug 28, 2022 1:50:37 PM EDT Normal [facility] Comment on above: Order Comment: Injur y/Trauma or Illness?:Illness/Other How long have you had these symptoms (acute/chronic)?:Unknown Reason for exam?:n/a History of cancer?:n/a Surgeries, chemotherapy, or radiation?:n/a Type of Exam?:Unknown Additional signs and symptoms?:n/a CBC AUTO DIFFon 03-19-2022 BASO # 0.1 103/ul Normal 0.0-0.1 [facility] Comment on above: Performed By: #### D ATCBC #### [facility] [address] [place] [address] Dr. Joni Sanders Basophils/100 WBC (Bld) 1.0 % Normal 0.2-2.0 [facility] Comment on above: Performed By: #### D ATCBC #### [facility] [address] [place] [address] Dr. Joni Sanders EO # 0.1 103/ul Normal 0.0-0.7 [facility] Comment on above: Performed By: #### D ATCBC #### [facility] [address] [place] [address] Dr. Joni Sanders Eosinophils/100 WBC (Bld) 2.0 % Normal 0.9-7.0 [facility] Comment on above: Performed By: #### D ATCBC #### [facility] [address] [place] [address] Dr. Joni Sanders Erythrocyte distribution width (RBC) [Ratio] 12.4 % Normal 11.0-15.0 [facility] Comment on above: Performed By: #### D ATCBC #### [facility] [address] [place] [address] Dr. Joni Sanders Hematocrit (Bld) [Volume fraction] 43.7 % Normal 42.0-54.0 [facility] Comment on above: Performed By: #### D ATCBC #### [facility] [address] [place] [address] Dr. Joni Sanders Hemoglobin (Bld) [Mass/Vol] 14.6 g/dL Normal 14.0-18.0 [facility] Comment on above: Performed By: #### D ATCBC #### [facility] [address] [place] [address] Dr. Joni Sanders IG # 0.02 10e3/ul Normal 0.00-0.03 [facility] Comment on above: Performed By: #### D ATCBC #### [facility] [address] [place] [address] Dr. Joni Sanders IG % 0.3 % Normal 0.0-0.5 [facility] Comment on above: Performed By: #### D ATCBC #### [facility] [address] [place] [address] Dr. Joni Sanders LYMPH # 2.0 103/ul Normal 1.2-3.8 [facility] Comment on above: Performed By: #### D ATCBC #### [facility] [address] [place] [address] Dr. Joni Sanders Lymphocytes/100 WBC (Bld) 33.3 % Normal 20.5-60.0 [facility] Comment on above: Performed By: #### D ATCBC #### [facility] [address] [place] [address] Dr. Joni Sanders MCH (RBC) [Entitic mass] 32.6 pg Normal 25.9-34.0 [facility] Comment on above: Performed By: #### D ATCBC #### [facility] [address] [place] [address] Dr. Joni Sanders MCHC (RBC) [Mass/Vol] 33.4 g/dL Normal 29.9-35.2 [facility] Comment on above: Performed By: #### D ATCBC #### [facility] [address] [place] [address] Dr. Joni Sanders MCV (RBC) [Entitic vol] 97.5 fL Critically high 80.0-94.0 [facility] Comment on above: Performed By: #### D ATCBC #### [facility] [address] [place] [address] Dr. Joni Sanders MONO # 0.6 103/ul Normal 0.3-0.8 [facility] Comment on above: Performed By: #### D ATCBC #### [facility] [address] [place] [address] Dr. Joni Sanders Monocytes/100 WBC (Bld) 9.8 % Normal 1.7-12.0 [facility] Comment on above: Performed By: #### D ATCBC #### [facility] [address] [place] [address] Dr. Joni Sanders NEUT # 3.2 103/ul Normal 1.4-6.5 [facility] Comment on above: Performed By: #### D ATCBC #### [facility] [address] [place] [address] Dr. Joni Sanders Neutrophils/100 WBC (Bld) 53.6 % Normal 43.0-75.0 [facility] Comment on above: Performed By: #### D ATCBC #### [facility] [address] [place] [address] Dr. Joni Sanders Platelet mean volume (Bld) [Entitic vol] 9.9 fL Normal 9.5-13.5 [facility] Comment on above: Performed By: #### D ATCBC #### [facility] [address] [place] [address] Dr. Joni Sanders PLT 239 103/ul Normal 150-450 [facility] Comment on above: Performed By: #### D ATCBC #### [facility] [address] [place] [address] Dr. Joni Sanders RBC 4.48 106/ul Critically low 4.70-6.10 [facility] Comment on above: Performed By: #### D ATCBC #### [facility] [address] [address] [address] Joni Sanders WBC 5.9 103/ul Normal 4.0-11.0 [facility] Comment on above: Performed By: #### D ATCBC #### [facility] [address] [address] [address] Joni Sanders SILVIA- BMP WITH LIPIDon 2021 Anion gap [Moles/Vol] 12.7 mmol/L Normal [facility] Comment on above: Performed By: #### D ATBMP #### [facility] [address] [place] [address] Dr. Joni Sanders Calcium [Mass/Vol] 9.0 mg/dL Normal 8.5-10.1 [facility] Comment on above: Performed By: #### D ATBMP #### [facility] [address] [place] [address] Dr. Joni Sanders Chloride [Moles/Vol] 104 mmol/L Normal 98-107 [facility] Comment on above: Performed By: #### D ATBMP #### [facility] [address] [place] [address] Dr. Joni Sanders Cholesterol [Mass/Vol] 188 mg/dL Normal <=200 [facility] Comment on above: Performed By: #### D ATBMP #### [facility] [address] [place] [address] Dr. Joni Sanders Cholesterol in HDL [Mass/Vol] 45 mg/dL Normal 40-60 [facility] Comment on above: Performed By: #### D ATBMP #### [facility] [address] [address] [address] Joni Sanders Cholesterol in LDL [Mass/Vol] 102.2 mg/dL Normal [facility] Comment on above: Performed By: #### D ATBMP #### [facility] [address] [place] [address] Dr. Joni Sanders CO2 [Moles/Vol] 27.7 mmol/L Normal 21.0-32.0 [facility] Comment on above: Performed By: #### D ATBMP #### [facility] [address] [address] [address] Joni Sanders Creatinine [Mass/Vol] 1.00 mg/dL Normal 0.70-1.30 [facility] Comment on above: Performed By: #### D ATBMP #### [facility] [address] [address] [address] Joni Sanders EGFR-AF SAO TOMEAN >60 Normal >=60 [facility] Comment on above: Performed By: #### D ATBMP #### [facility] [address] [place] [address] Dr. Joni Sanders EGFR-NON AF SAO TOMEAN >60 Normal >=60 [facility] Comment on above: Performed By: #### D ATBMP #### [facility] [address] [address] [address] Joni Sanders Glucose [Mass/Vol] 107 mg/dL Critically high 74-106 [facility] Comment on above: Performed By: #### D ATBMP #### [facility] [address] [address] [address] Joni Sanders HDL NORMAL > or = 60 mg/dl - LO W CARDIOVASCULAR RISK <40 mg/dl - HIGH CARDIOVASCULAR RISK Normal [facility] Comment on above: Performed By: #### D ATBMP #### [facility] [address] [address] [address] Joni Sanders LDL CALC NORMAL SEE BELOW Normal [facility] Comment on above: Result Comment: <100 mg/dl OPTIMAL 100 - 129 mg/dl NEAR OR ABOVE OPTIMAL 130 - 159 mg/dl BORDERLINE HIGH 160 - 189 mg/dl HIGH >190 mg/dl VERY HIGH Performed By: #### D ATBMP #### [facility] [address] [place] [address] Dr. Joni Sanders Potassium [Moles/Vol] 4.4 mmol/L Normal 3.5-5.1 [facility] Comment on above: Performed By: #### D ATBMP #### [facility] [address] [address] [address] Joni Sanders Sodium [Moles/Vol] 140 mmol/L Normal 136-145 [facility] Comment on above: Performed By: #### D ATBMP #### [facility] [address] [address] [address] Joni Sanders Triglyceride [Mass/Vol] 204 mg/dL Critically high <=150 [facility] Comment on above: Performed By: #### D ATBMP #### [facility] [address] [address] [address] Joni Sanders Urea nitrogen [Mass/Vol] 22.0 mg/dL Critically high 7.0-18.0 [facility] Comment on above: Performed By: #### D ATBMP #### [facility] [address] [address] [address] Joni Sanders Urea nitrogen/Creatinine [Mass ratio] 22.0 mg/mg Normal [facility] Comment on above: Performed By: #### D ATBMP #### [facility] [address] [address] [address] Joni Sanders VLDL CALC 40.8 mg/dL Normal [facility] Comment on above: Performed By: #### D ATBMP #### [facility] [address] [address] [address] Joni Sanders Vital Signs Date Time Vital Sign Value Performing Clinician Facility 08-24-2024 10:43-040 Body height 182.9 cm Sue Murillo MD Work Phone: [facility] 08-24-2024 10:43-0400 Body mass index (BMI) [Ratio] 25.44 kg/m2 Sue Murillo MD Work Phone: [facility] 08-24-2024 10:43-0400 Body temperature 97.9 [degF] Sue Murillo MD Work Phone: [facility] 08-24-2024 10:43-0400 Body weight 85.09 kg Sue Murillo MD Work Phone: [facility] 08-24-2024 10:43-0400 Diastolic blood pressure 78 mm[Hg] Sue Murillo MD Work Phone: [facility] 08-24-2024 10:43-0400 Heart rate 78 /min Sue Murillo MD Work Phone: [facility] 08-24-2024 10:43-0400 SaO2% (BldA) [Mass fraction] 96 % Sue Murillo MD Work Phone: [facility] 08-24-2024 10:43-0400 Systolic blood pressure 122 mm[Hg] Sue Murillo MD Work Phone: [facility] 08-18-2024 14:09-0500 Body height 182.9 cm Della Tinajero APRN.ATTORNEY [employer] CLERK Work Phone: [facility] 08-18-2024 14:09-0500 Body mass index (BMI) [Ratio] 26.42 kg/m2 Della Tinajero SOFTWARE TOOLS DEVELOPER.ATTORNEY LAW CLERK Work Phone: [facility] 08-18-2024 14:09-0500 Body temperature 98.2 [degF] Della Tinajero SOFTWARE TOOLS DEVELOPER.ATTORNEY LAW CLERK Work Phone: [facility] 08-18-2024 14:09-0500 Body weight 88.36 kg Della Tinajero APRN.ATTORNEY LAW CLERK Work Phone: [facility] 08-18-2024 14:09-0500 Diastolic blood pressure 67 mm[Hg] Della Tinajero SOFTWARE TOOLS DEVELOPER.ATTORNEY LAW CLERK Work Phone: [facility] 08-18-2024 14:09-0500 Heart rate 82 /min Della Tinajero APRN.ATTORNEY LAW CLERK Work Phone: [facility] 08-18-2024 14:09-0500 Respiratory rate 14 /min Della Tinajero APRN.ATTORNEY LAW CLERK Work Phone: [facility] 08-18-2024 14:09-0500 SaO2% (BldA) [Mass fraction] 98 % Della Nievescedricgrecia LETICIA.ATTORNEY LAW CLERK Work Phone: [facility] 08-18-2024 14:09-0500 Systolic blood pressure 111 mm[Hg] Della Ezequielalayna KELLY.ATTORNEY LAW CLERK Work Phone: [facility] 07-21-2024 13:27-0500 Body height 182.9 cm Jose Antonio Meyers MD Work Phone: [facility] 07-21-2024 13:27-0500 Body mass index (BMI) [Ratio] 26.31 kg/m2 Jose Antonio Meyers MD Work Phone: [facility] 07-21-2024 13:27-0500 Body temperature 98.6 [degF] Jose Antonio Meyers MD Work Phone: [facility] 07-21-2024 13:27-0500 Body weight 88 kg Jose Antonio Meyers MD Work Phone: [facility] 07-21-2024 13:27-0500 Diastolic blood pressure 80 mm[Hg] Jose Antonio Meyers MD Work Phone: [facility] 07-21-2024 13:27-0500 Heart rate 75 /min Jose Antonio Meyers MD Work Phone: [facility] 07-21-2024 13:27-0500 Respiratory rate 16 /min Jose Antonio Meyers MD Work Phone: [facility] 07-21-2024 13:27-0500 SaO2% (BldA) [Mass fraction] 98 % Jose Antonio Meyers MD Work Phone: [facility] 07-21-2024 13:27-0500 Systolic blood pressure 118 mm[Hg] Jose Antonio Meyers MD Work Phone: [facility] 07-20-2024 12:49-0500 Body temperature 97.2 [degF] Triston Riggs MD Work Phone: [facility] 07-20-2024 12:49-0500 Diastolic blood pressure 86 mm[Hg] Triston Riggs MD Work Phone: [facility] 07-20-2024 12:49-0500 Heart rate 89 /min Triston Riggs MD Work Phone: [facility] 07-20-2024 12:49-0500 Respiratory rate 16 /min Triston Riggs MD Work Phone: [facility] 07-20-2024 12:49-0500 SaO2% (BldA) [Mass fraction] 97 % Triston Riggs MD Work Phone: [facility] 07-20-2024 12:49-0500 Systolic blood pressure 132 mm[Hg] Triston Riggs MD Work Phone: [facility] 06-22-2024 09:15-0500 Body temperature 97 [degF] Triston Riggs MD Work Phone: [facility] 06-22-2024 09:15-0500 Diastolic blood pressure 91 mm[Hg] Triston Riggs MD Work Phone: [facility] 06-22-2024 09:15-0500 Heart rate 91 /min Triston Riggs MD Work Phone: [facility] 06-22-2024 09:15-0500 Respiratory rate 16 /min Triston Riggs MD Work Phone: [facility] 06-22-2024 09:15-0500 SaO2% (BldA) [Mass fraction] 98 % Triston Riggs MD Work Phone: [facility] 06-22-2024 09:15-0500 Systolic blood pressure 144 mm[Hg] Triston Riggs MD Work Phone: [facility] 06-12-2024 14:15-0500 Body height 182.9 cm Jose Antonio Meyers MD Work Phone: [facility] 06-12-2024 14:15-0500 Body mass index (BMI) [Ratio] 25.63 kg/m2 Jose Antonio Meyers MD Work Phone: [facility] 06-12-2024 14:15-0500 Body temperature 98.6 [degF] Jose Antonio Meyers MD Work Phone: [facility] 06-12-2024 14:15-0500 Body weight 85.73 kg Jose Antonio Meyers MD Work Phone: [facility] 06-12-2024 14:15-0500 Diastolic blood pressure 74 mm[Hg] Jose Antonio Meyers MD Work Phone: [facility] 06-12-2024 14:15-0500 Heart rate 83 /min Jose Antonio Meyers MD Work Phone: [facility] 06-12-2024 14:15-0500 Respiratory rate 16 /min Jose Antonio Meyers MD Work Phone: [facility] 06-12-2024 14:15-0500 SaO2% (BldA) [Mass fraction] 98 % Jose Antonio Meyers MD Work Phone: [facility] 06-12-2024 14:15-0500 Systolic blood pressure 118 mm[Hg] Jose Antonio Meyers MD Work Phone: [facility] 06-01-2024 12:22-0500 Body height 182.9 cm Steffen Sanchez MD Work Phone: [facility] 06-01-2024 12:22-0500 Body mass index (BMI) [Ratio] 25.3 kg/m2 Steffen Sanchez MD Work Phone: [facility] 06-01-2024 12:22-0500 Body temperature 97.9 [degF] Steffen Sanchez MD Work Phone: [facility] 06-01-2024 12:22-0500 Body weight 84.6 kg Stfefen Sanchez MD Work Phone: [facility] 06-01-2024 12:22-0500 Diastolic blood pressure 74 mm[Hg] Steffen Sanchez MD Work Phone: [facility] 06-01-2024 12:22-0500 Heart rate 78 /min Steffen Sanchez MD Work Phone: [facility] 06-01-2024 12:22-0500 Systolic blood pressure 136 mm[Hg] Steffen Sanchez MD Work Phone: [facility] 05-26-2024 16:01-0500 Body height 182.9 cm Sue Murillo MD Work Phone: [facility] 05-26-2024 16:01-0500 Body mass index (BMI) [Ratio] 25.23 kg/m2 Sue Murillo MD Work Phone: [facility] 05-26-2024 16:01-0500 Body temperature 97.2 [degF] Sue Murillo MD Work Phone: [facility] 05-26-2024 16:01-0500 Body weight 84.37 kg Sue Murillo MD Work Phone: [facility] 05-26-2024 16:01-0500 Diastolic blood pressure 83 mm[Hg] Sue Murillo MD Work Phone: [facility] 05-26-2024 16:01-0500 Heart rate 81 /min Sue Murillo MD Work Phone: [facility] 05-26-2024 16:01-0500 SaO2% (BldA) [Mass fraction] 98 % Sue Murillo MD Work Phone: [facility] 05-26-2024 16:01-0500 Systolic blood pressure 137 mm[Hg] Sue Murillo MD Work Phone: [facility] 05-18-2024 10:30-0500 Body mass index (BMI) [Ratio] 28.4 kg/m2 Louise Douglas MD Work Phone: [facility] 05-18-2024 10:30-0500 Body temperature 97.81 [degF] Louise Douglas MD Work Phone: [facility] 05-18-2024 10:30-0500 Body weight 95 kg Louise Douglas MD Work Phone: [facility] 05-18-2024 10:30-0500 Diastolic blood pressure 82 mm[Hg] Louise Douglas MD Work Phone: [facility] 05-18-2024 10:30-0500 Heart rate 76 /min Louise Douglas MD Work Phone: [facility] 05-18-2024 10:30-0500 SaO2% (BldA) [Mass fraction] 96 % Louise Douglas MD Work Phone: [facility] 05-18-2024 10:30-0500 Systolic blood pressure 136 mm[Hg] Louise Douglas MD Work Phone: [facility] 05-13-2024 10:27-0500 Body height 182.9 cm Jose Antonio Meyers MD Work Phone: [facility] 05-13-2024 10:27-0500 Body mass index (BMI) [Ratio] 28.35 kg/m2 Jose Antonio Meyers MD Work Phone: [facility] 05-13-2024 10:27-0500 Body temperature 98.6 [degF] Jose Antonio Meyers MD Work Phone: [facility] 05-13-2024 10:27-0500 Body weight 94.8 kg Jose Antonio Meyers MD Work Phone: [facility] 05-13-2024 10:27-0500 Diastolic blood pressure 78 mm[Hg] Jose Antonio Meyers MD Work Phone: [facility] 05-13-2024 10:27-0500 Heart rate 75 /min Jose Antonio Meyers MD Work Phone: [facility] 05-13-2024 10:27-0500 Respiratory rate 16 /min Jose Antonio Meyers MD Work Phone: [facility] 05-13-2024 10:27-0500 SaO2% (BldA) [Mass fraction] 98 % Jose Antonio Meyers MD Work Phone: [facility] 05-13-2024 10:27-0500 Systolic blood pressure 122 mm[Hg] Jose Antonio Meyers MD Work Phone: [facility] 04-28-2024 12:30-0500 Diastolic blood pressure 82 mm[Hg] Vic Ponce MD Work Phone: [facility] 04-28-2024 12:30-0500 Heart rate 85 /min Vic Ponce MD Work Phone: [facility] 04-28-2024 12:30-0500 Respiratory rate 21 /min Vic Ponce MD Work Phone: [facility] 04-28-2024 12:30-0500 SaO2% (BldA) [Mass fraction] 98 % Vic Ponce MD Work Phone: [facility] 04-28-2024 12:30-0500 Systolic blood pressure 117 mm[Hg] Vic Ponce MD Work Phone: [facility] 04-28-2024 12:02-0500 Body temperature 99.1 [degF] Vic Ponce MD Work Phone: [facility] 04-20-2024 11:48-0500 Body height 180.3 cm Sue Murillo MD Work Phone: [facility] 04-20-2024 11:48-0500 Body mass index (BMI) [Ratio] 29.18 kg/m2 Sue Murillo MD Work Phone: [facility] 04-20-2024 11:48-0500 Body weight 94.89 kg Sue Murillo MD Work Phone: [facility] 04-20-2024 11:48-0500 Diastolic blood pressure 80 mm[Hg] Sue Murillo MD Work Phone: [facility] 04-20-2024 11:48-0500 Heart rate 89 /min Sue Murillo MD Work Phone: [facility] 04-20-2024 11:48-0500 SaO2% (BldA) [Mass fraction] 97 % Sue Murillo MD Work Phone: [facility] 04-20-2024 11:48-0500 Systolic blood pressure 134 mm[Hg] Sue Murillo MD Work Phone: [facility] 03-30-2024 09:26-0400 Body height 180.3 cm Steffen Sanchez MD Work Phone: [facility] 03-30-2024 09:26-0400 Body mass index (BMI) [Ratio] 28.9 kg/m2 Steffen Sanchez MD Work Phone: [facility] 03-30-2024 09:26-0400 Body temperature 97.7 [degF] Steffen Sanchez MD Work Phone: [facility] 03-30-2024 09:26-0400 Body weight 94 kg Steffen Sanchez MD Work Phone: [facility] 03-30-2024 09:26-0400 Diastolic blood pressure 72 mm[Hg] Steffen Sanchez MD Work Phone: [facility] 03-30-2024 09:26-0400 Heart rate 92 /min Steffen Sanchez MD Work Phone: [facility] 03-30-2024 09:26-0400 Systolic blood pressure 141 mm[Hg] Steffen Sanchez MD Work Phone: [facility] 03-17-2024 13:48-0400 Body height 177.8 cm Ruma Zavarella PA-C Work Phone: [facility] 03-17-2024 13:48-0400 Body mass index (BMI) [Ratio] 29.83 kg/m2 Ruma Zavarella PA-C Work Phone: [facility] 03-17-2024 13:48-0400 Body temperature 97.3 [degF] Ruma Zavarella PA-C Work Phone: [facility] 03-17-2024 13:48-0400 Body weight 94.3 kg Ruma Zavarella PA-C Work Phone: [facility] 03-17-2024 13:48-0400 Diastolic blood pressure 78 mm[Hg] Ruma Zavarella PA-C Work Phone: [facility] 03-17-2024 13:48-0400 Heart rate 88 /min Ruma Zavarella PA-C Work Phone: [facility] 03-17-2024 13:48-0400 Respiratory rate 16 /min Ruma Zavarella PA-C Work Phone: [facility] 03-17-2024 13:48-0400 SaO2% (BldA) [Mass fraction] 98 % Ruma Zavarella PA-C Work Phone: [facility] 03-17-2024 13:48-0400 Systolic blood pressure 132 mm[Hg] Ruma Zavarella PA-C Work Phone: [facility] 03-17-2024 10:24-0400 Body mass index (BMI) [Ratio] 27.8 kg/m2 Louise Douglas MD Work Phone: [facility] 03-17-2024 10:24-0400 Body weight 92.99 kg Louise Douglas MD Work Phone: [facility] 03-17-2024 10:24-0400 Diastolic blood pressure 84 mm[Hg] Louise Douglas MD Work Phone: [facility] 03-17-2024 10:24-0400 Heart rate 82 /min Louise Douglas MD Work Phone: [facility] 03-17-2024 10:24-0400 SaO2% (BldA) [Mass fraction] 98 % Louise Douglas MD Work Phone: [facility] 03-17-2024 10:24-0400 Systolic blood pressure 126 mm[Hg] Louise Douglas MD Work Phone: [facility] 02-12-2024 13:08-0400 Body height 182.9 cm Yehuda Dial MD Work Phone: [facility] 02-12-2024 13:08-0400 Body mass index (BMI) [Ratio] 27.67 kg/m2 Yehuda Dial MD Work Phone: [facility] 02-12-2024 13:08-0400 Body weight 92.53 kg Yehuda Dial MD Work Phone: [facility] 02-12-2024 13:08-0400 Diastolic blood pressure 72 mm[Hg] Yehuda Dial MD Work Phone: [facility] 02-12-2024 13:08-0400 Systolic blood pressure 124 mm[Hg] Yehuda Dial MD Work Phone: [facility] 02-12-2024 10:38-0400 Body height 182.9 cm Jose Antonio Meyers MD Work Phone: [facility] 02-12-2024 10:38-0400 Body mass index (BMI) [Ratio] 27.67 kg/m2 Jose Antonio Meyers MD Work Phone: [facility] 02-12-2024 10:38-0400 Body temperature 98.6 [degF] Jose Antonio Meyers MD Work Phone: [facility] 02-12-2024 10:38-0400 Body weight 92.53 kg Jose Antonio Meyers MD Work Phone: [facility] 02-12-2024 10:38-0400 Diastolic blood pressure 78 mm[Hg] Jose Antonio Meyers MD Work Phone: [facility] 02-12-2024 10:38-0400 Heart rate 86 /min Jose Antonio Meyers MD Work Phone: [facility] 02-12-2024 10:38-0400 Respiratory rate 18 /min Jose Antonio Meyers MD Work Phone: [facility] 02-12-2024 10:38-0400 SaO2% (BldA) [Mass fraction] 98 % Jose Antonio Meyers MD Work Phone: [facility] 02-12-2024 10:38-0400 Systolic blood pressure 108 mm[Hg] Jose Antonio Meyers MD Work Phone: [facility] 02-04-2024 13:32-0400 Body height 182.9 cm [facility] SOFTWARE [employer] DEVELOPER.ATT[employer]NEY [employer] CLERK Work Phone: [facility] 02-04-2024 13:32-0400 Body mass index (BMI) [Ratio] 27.12 kg/m2 [facility] SOFTWARE [employer] DEVELOPER.ATTORNEY LAW CLERK Work Phone: [facility] 02-04-2024 13:32-0400 Body temperature 97.11 [degF] [facility] SOFTWARE TO[employer] DEVELOPER.ATTORNEY LAW CLERK Work Phone: [facility] 02-04-2024 13:32-0400 Body weight 90.7 kg [facility] SOFTWARE TO[employer] DEVELOPER.ATTORNEY LAW CLERK Work Phone: [facility] 02-04-2024 13:32-0400 Diastolic blood pressure 69 mm[Hg] [facility] SOFTWARE TO[employer] DEVELOPER.ATTORNEY LAW CLERK Work Phone: [facility] 02-04-2024 13:32-0400 Heart rate 75 /min [facility] SOFTWARE TO[employer] DEVELOPER.ATTORNEY LAW CLERK Work Phone: [facility] 02-04-2024 13:32-0400 Respiratory rate 16 /min [facility] SOFTWARE TO[employer] DEVELOPER.ATTORNEY LAW CLERK Work Phone: [facility] 02-04-2024 13:32-0400 SaO2% (BldA) [Mass fraction] 95 % [facility] SOFTWARE TO[employer] DEVELOPER.ATTORNEY LAW CLERK Work Phone: [facility] 02-04-2024 13:32-0400 Systolic blood pressure 120 mm[Hg] [facility] SOFTWARE TO[employer] DEVELOPER.ATTORNEY LAW CLERK Work Phone: [facility] 01-15-2024 11:36-0400 Body height 182.9 cm Jose Antonio Meyers MD Work Phone: [facility] 01-15-2024 11:36-0400 Body mass index (BMI) [Ratio] 29.02 kg/m2 Jose Antonio Meyers MD Work Phone: [facility] 01-15-2024 11:36-0400 Body temperature 98.6 [degF] Jose Antonio Meyers MD Work Phone: [facility] 01-15-2024 11:36-0400 Body weight 97.07 kg Jose Antonio Meyers MD Work Phone: [facility] 01-15-2024 11:36-0400 Diastolic blood pressure 82 mm[Hg] Jose Antonio Meyers MD Work Phone: [facility] 01-15-2024 11:36-0400 Heart rate 80 /min Jose Antonio Meyers MD Work Phone: [facility] 01-15-2024 11:36-0400 Respiratory rate 16 /min Jose Antonio Meyers MD Work Phone: [facility] 01-15-2024 11:36-0400 SaO2% (BldA) [Mass fraction] 96 % Jose Antonio Meyers MD Work Phone: [facility] 01-15-2024 11:36-0400 Systolic blood pressure 128 mm[Hg] Jose Antonio Meyers MD Work Phone: [facility] 01-06-2024 15:28-0400 Body height 182.9 cm Yehuda Dial MD Work Phone: [facility] 01-06-2024 15:28-0400 Body mass index (BMI) [Ratio] 29.02 kg/m2 Yehuda Dial MD Work Phone: [facility] 01-06-2024 15:28-0400 Body weight 97.07 kg Yehuda Dial MD Work Phone: [facility] 01-06-2024 15:28-0400 Diastolic blood pressure 76 mm[Hg] Yehuda Dial MD Work Phone: [facility] 01-06-2024 15:28-0400 Systolic blood pressure 134 mm[Hg] Yehuda Dial MD Work Phone: [facility] 01-06-2024 13:36-0400 Body height 182.9 cm Ruma Christina PA-C Work Phone: [facility] 01-06-2024 13:36-0400 Body mass index (BMI) [Ratio] 29.08 kg/m2 Ruma Christina PA-C Work Phone: [facility] 01-06-2024 13:36-0400 Body temperature 97.2 [degF] Ruma Christina PA-C Work Phone: [facility] 01-06-2024 13:36-0400 Body weight 97.25 kg Ruma Christina PA-C Work Phone: [facility] 01-06-2024 13:36-0400 Diastolic blood pressure 73 mm[Hg] Ruma Shultzvarella PA-C Work Phone: [facility] 01-06-2024 13:36-0400 Heart rate 80 /min Rmua Shultzvarella PA-C Work Phone: [facility] 01-06-2024 13:36-0400 Respiratory rate 16 /min Ruma Lexiivarella PA-C Work Phone: [facility] 01-06-2024 13:36-0400 SaO2% (BldA) [Mass fraction] 96 % Ruma Shultzvarella PA-C Work Phone: [facility] 01-06-2024 13:36-0400 Systolic blood pressure 137 mm[Hg] Ruma Shultzvarella PA-C Work Phone: [facility] 12-20-2023 13:33-0400 Body height 182.9 cm [facility] SOFTWARE TO[employer]S DEVELOPER.ATTORNEY LAW CLERK Work Phone: [facility] 12-20-2023 13:33-0400 Body mass index (BMI) [Ratio] 31.33 kg/m2 [facility] SOFTWARE [employer] DEVELOPER.ATTORNEY LAW CLERK Work Phone: [facility] 12-20-2023 13:33-0400 Body temperature 97.3 [degF] [facility] SOFTWARE TO[employer]S DEVELOPER.ATTORNEY LAW CLERK Work Phone: [facility] 12-20-2023 13:33-0400 Body weight 104.78 kg [facility] SOFTWARE TO[employer]S DEVELOPER.ATTORNEY LAW CLERK Work Phone: [facility] 12-20-2023 13:33-0400 Respiratory rate 18 /min [facility] SOFTWARE TO[employer]S DEVELOPER.ATTORNEY LAW CLERK Work Phone: [facility] 12-20-2023 13:33-0400 SaO2% (BldA) [Mass fraction] 100 % [facility] SOFTWARE TOOLS DEVELOPER.ATTORNEY LAW CLERK Work Phone: [facility] 12-13-2023 13:40-0400 Body height 182.9 cm [facility] SOFTWARE TO[employer] DEVELOPER.ATTORNEY LAW CLERK Work Phone: [facility] 12-13-2023 13:40-0400 Body mass index (BMI) [Ratio] 31.1 kg/m2 [facility] SOFTWARE TO[employer] DEVELOPER.ATTORNEY LAW CLERK Work Phone: [facility] 12-13-2023 13:40-0400 Body temperature 97.3 [degF] [facility] SOFTWARE TOOLS DEVELOPER.ATTORNEY LAW CLERK Work Phone: [facility] 12-13-2023 13:40-0400 Body weight 104.01 kg [facility] SOFTWARE TOOLS DEVELOPER.ATTORNEY LAW CLERK Work Phone: [facility] 12-13-2023 13:40-0400 Diastolic blood pressure 80 mm[Hg] [facility] SOFTWARE TOOLS DEVELOPER.ATTORNEY LAW CLERK Work Phone: [facility] 12-13-2023 13:40-0400 Heart rate 68 /min [facility] SOFTWARE TOOLS DEVELOPER.ATTORNEY LAW CLERK Work Phone: [facility] 12-13-2023 13:40-0400 Respiratory rate 16 /min [facility] SOFTWARE TOOLS DEVELOPER.ATTORNEY LAW CLERK Work Phone: [facility] 12-13-2023 13:40-0400 SaO2% (BldA) [Mass fraction] 99 % [facility] SOFTWARE TOOLS DEVELOPER.ATTORNEY LAW CLERK Work Phone: [facility] 12-13-2023 13:40-0400 Systolic blood pressure 129 mm[Hg] [facility] SOFTWARE TOOLS DEVELOPER.ATTORNEY LAW CLERK Work Phone: [facility] 12-03-2023 13:21-0400 Body height 182.9 cm [facility] SOFTWARE TOOLS DEVELOPER.ATTORNEY LAW CLERK Work Phone: [facility] 12-03-2023 13:21-0400 Body mass index (BMI) [Ratio] 30.61 kg/m2 [facility] SOFTWARE TO[employer] DEVELOPER.ATTORNEY LAW CLERK Work Phone: [facility] 12-03-2023 13:21-0400 Body temperature 97.81 [degF] [facility] SOFTWARE TOOLS DEVELOPER.ATTORNEY LAW CLERK Work Phone: [facility] 12-03-2023 13:21-0400 Body weight 102.38 kg [facility] SOFTWARE TOOLS DEVELOPER.ATTORNEY LAW CLERK Work Phone: [facility] 12-03-2023 13:21-0400 Diastolic blood pressure 78 mm[Hg] [facility] SOFTWARE TOOLS DEVELOPER.ATTORNEY LAW CLERK Work Phone: [facility] 12-03-2023 13:21-0400 Heart rate 74 /min [facility] SOFTWARE TOOLS DEVELOPER.ATTORNEY LAW CLERK Work Phone: [facility] 12-03-2023 13:21-0400 Respiratory rate 14 /min [facility] SOFTWARE TOOLS DEVELOPER.ATTORNEY LAW CLERK Work Phone: [facility] 12-03-2023 13:21-0400 SaO2% (BldA) [Mass fraction] 98 % [facility] SOFTWARE TOOLS DEVELOPER.ATTORNEY LAW CLERK Work Phone: [facility] 12-03-2023 13:21-0400 Systolic blood pressure 120 mm[Hg] [facility] SOFTWARE TOOLS DEVELOPER.ATTORNEY LAW CLERK Work Phone: [facility] 11-29-2023 14:28-0400 Body height 182.9 cm [facility] SOFTWARE TOOLS DEVELOPER.ATTORNEY LAW CLERK Work Phone: [facility] 11-29-2023 14:28-0400 Body mass index (BMI) [Ratio] 31.57 kg/m2 [facility] SOFTWARE TO[employer] DEVELOPER.ATTORNEY LAW CLERK Work Phone: [facility] 11-29-2023 14:28-0400 Body temperature 97.3 [degF] [facility] SOFTWARE TOOLS DEVELOPER.ATTORNEY LAW CLERK Work Phone: [facility] 11-29-2023 14:28-0400 Body weight 105.6 kg [facility] SOFTWARE TOOLS DEVELOPER.ATTORNEY LAW CLERK Work Phone: [facility] 11-29-2023 14:28-0400 Diastolic blood pressure 68 mm[Hg] [facility] SOFTWARE TOOLS DEVELOPER.ATTORNEY LAW CLERK Work Phone: [facility] 11-29-2023 14:28-0400 Heart rate 71 /min [facility] SOFTWARE TOOLS DEVELOPER.ATTORNEY LAW CLERK Work Phone: [facility] 11-29-2023 14:28-0400 Respiratory rate 14 /min [facility] SOFTWARE TOOLS DEVELOPER.ATTORNEY LAW CLERK Work Phone: [facility] 11-29-2023 14:28-0400 SaO2% (BldA) [Mass fraction] 98 % [facility] SOFTWARE TOOLS DEVELOPER.ATTORNEY LAW CLERK Work Phone: [facility] 11-29-2023 14:28-0400 Systolic blood pressure 121 mm[Hg] [facility] SOFTWARE TOOLS DEVELOPER.ATTORNEY LAW CLERK Work Phone: [facility] 11-12-2023 15:33-0400 Body temperature 97 [degF] Roseann Rosario MD Work Phone: [facility] 11-12-2023 15:33-0400 Diastolic blood pressure 74 mm[Hg] Roseann Rosario MD Work Phone: [facility] 11-12-2023 15:33-0400 Heart rate 92 /min Roseann Rosario MD Work Phone: [facility] 11-12-2023 15:33-0400 Respiratory rate 24 /min Roseann Rosario MD Work Phone: [facility] 11-12-2023 15:33-0400 SaO2% (BldA) [Mass fraction] 97 % Roseann Rosario MD Work Phone: [facility] 11-12-2023 15:33-0400 Systolic blood pressure 143 mm[Hg] Roseann Rosario MD Work Phone: [facility] 11-12-2023 15:03-0400 Body height 182.9 cm Roseann Rosario MD Work Phone: [facility] 11-12-2023 15:03-0400 Body mass index (BMI) [Ratio] 29.84 kg/m2 Roseann Rosario MD Work Phone: [facility] 11-12-2023 15:03-0400 Body weight 99.79 kg Roseann Rosario MD Work Phone: [facility] 11-12-2023 13:22-0400 Body height 182.9 cm Ronaldo Simmons MD, PhD Work Phone: [facility] 11-12-2023 13:22-0400 Body mass index (BMI) [Ratio] 29.84 kg/m2 Ronaldo Simmons MD, PhD Work Phone: [facility] 11-12-2023 13:22-0400 Body temperature 97.3 [degF] Ronaldo Simmons MD, PhD Work Phone: [facility] 11-12-2023 13:22-0400 Body weight 99.79 kg Ronaldo Simmons MD, PhD Work Phone: [facility] 11-12-2023 13:22-0400 Diastolic blood pressure 88 mm[Hg] Ronaldo Simmons MD, PhD Work Phone: [facility] 11-12-2023 13:22-0400 Heart rate 91 /min Ronaldo Simmons MD, PhD Work Phone: [facility] 11-12-2023 13:22-0400 Respiratory rate 14 /min Ronaldo Simmons MD, PhD Work Phone: [facility] 11-12-2023 13:22-0400 SaO2% (BldA) [Mass fraction] 94 % Ronaldo Simmons MD, PhD Work Phone: [facility] 11-12-2023 13:22-0400 Systolic blood pressure 144 mm[Hg] Ronaldo Simmons MD, PhD Work Phone: [facility] 10-24-2023 12:01-0400 Body height 182.9 cm Ronaldo Simmons MD, PhD Work Phone: [facility] 05-09-2024 12:01-0400 Body mass index (BMI) [Ratio] 30.24 kg/m2 Ronaldo Simmons MD, PhD Work Phone: [facility] 10-24-2023 12:01-0400 Body temperature 97.39 [degF] Ronaldo Simmons MD, PhD Work Phone: [facility] 10-24-2023 12:01-0400 Body weight 101.15 kg Ronaldo Simmons MD, PhD Work Phone: [facility] 10-24-2023 12:01-0400 Diastolic blood pressure 95 mm[Hg] Ronaldo Simmons MD, PhD Work Phone: [facility] 10-24-2023 12:01-0400 Heart rate 82 /min Ronaldo Simmons MD, PhD Work Phone: [facility] 10-24-2023 12:01-0400 Respiratory rate 14 /min Ronaldo Simmons MD, PhD Work Phone: [facility] 10-24-2023 12:01-0400 SaO2% (BldA) [Mass fraction] 98 % Ronaldo Simmons MD, PhD Work Phone: [facility] 10-24-2023 12:01-0400 Systolic blood pressure 162 mm[Hg] Ronaldo Simmons MD, PhD Work Phone: [facility] 08-13-2023 13:47-0500 Body height 182.88 cm DO Calincandida Gotti Work Phone: [facility] 08-13-2023 13:47-0500 Body mass index (BMI) [Ratio] 32 kg/m2 DO Calincandida Mcarthursa Work Phone: [facility] 08-13-2023 13:47-0500 Body weight 107.04 kg DO Calincandida Mcarthursa Work Phone: [facility] 08-13-2023 13:47-0500 Diastolic blood pressure 81 mm[Hg] DO Calincandida Mcarthursa Work Phone: [facility] 08-13-2023 13:47-0500 Heart rate 88 /min DO Calincandida Gotti Work Phone: [facility] 08-13-2023 13:47-0500 Respiratory rate 12 /min DO Calincandida Gotti Work Phone: [facility] 08-13-2023 13:47-0500 Systolic blood pressure 150 mm[Hg] DO Calin Gotti Work Phone: [facility] 07-23-2023 13:30-0500 Body height 182.88 cm Yuli Ball Other [employer] Other 07-23-2023 13:30-0500 Body mass index (BMI) [Ratio] 31.16 kg/m2 Yuli Ball Other [employer] Other 07-23-2023 13:30-0500 Body weight 104.24 kg Yuli Ball Other [employer] Other 07-23-2023 13:30-0500 Diastolic blood pressure 81 mm[Hg] Yuli Ball Other [employer] Other 07-23-2023 13:30-0500 Respiratory rate 12 /min Yuli Ball Other [employer] Other 07-23-2023 13:30-0500 Systolic blood pressure 133 mm[Hg] Yuli Ball Other [employer] Other 04-22-2023 10:00-0500 Body height 182.88 cm Yuli Ball Other [employer] Other 04-22-2023 10:00-0500 Body mass index (BMI) [Ratio] 30.78 kg/m2 Yuli Ball Other [employer] Other 04-22-2023 10:00-0500 Body weight 102.97 kg Yuli Ball Other [employer] Other 04-22-2023 10:00-0500 Diastolic blood pressure 111 mm[Hg] Yuli Ball Other [employer] Other 04-22-2023 10:00-0500 Respiratory rate 12 /min Yuli Ball Other [employer] Other 04-22-2023 10:00-0500 Systolic blood pressure 164 mm[Hg] Yuli Ball Other [employer] Other 02-11-2023 15:16-0400 Body height 182.9 cm Margie [employer] DO Work Phone: [facility] 02-11-2023 15:16-0400 Body mass index (BMI) [Ratio] 29.84 kg/m2 Margierudi IvanViximo DO Work Phone: [facility] 02-11-2023 15:16-0400 Body weight 99.79 kg Margierudi Edouard DO Work Phone: [facility] 01-16-2023 09:46-0400 Body height 182.9 cm Nena Bynum DO Work Phone: [facility] 01-16-2023 09:46-0400 Body mass index (BMI) [Ratio] 29.84 kg/m2 Nena Bynum DO Work Phone: [facility] 01-16-2023 09:46-0400 Body weight 99.79 kg Nena Bynum DO Work Phone: [facility] 01-10-2023 10:00-0400 Body height 182.88 cm Yuli Ball Other [employer] Other 01-10-2023 10:00-0400 Body mass index (BMI) [Ratio] 30.11 kg/m2 Yuli Ball Other [employer] Other 01-10-2023 10:00-0400 Body weight 100.7 kg Yuli Ball Other [employer] Other 01-10-2023 10:00-0400 Diastolic blood pressure 90 mm[Hg] Yuli Ball Other [employer] Other 01-10-2023 10:00-0400 Respiratory rate 12 /min Yuli Ball Other [employer] Other 01-10-2023 10:00-0400 Systolic blood pressure 134 mm[Hg] Yuli Ball Other [employer] Other 11-19-2022 13:38-0400 Body height 182.9 cm Margie Steginsky DO Work Phone: [facility] 11-19-2022 13:38-0400 Body mass index (BMI) [Ratio] 30.24 kg/m2 Margie Steginsky DO Work Phone: [facility] 11-19-2022 13:38-0400 Body weight 101.15 kg Margie Steginsky DO Work Phone: [facility] 10-08-2022 13:20-0400 Body height 182.9 cm Grecia Hill PA-C Work Phone: [facility] 10-08-2022 13:20-0400 Body mass index (BMI) [Ratio] 30.24 kg/m2 Grecia Hill PA-C Work Phone: [facility] 10-08-2022 13:20-0400 Body weight 101.15 kg Grecia Hill PA-C Work Phone: [facility] 08-28-2022 13:16-0400 Body height 182.9 cm Margie Steginsky DO Work Phone: [facility] 08-28-2022 13:16-0400 Body mass index (BMI) [Ratio] 30.24 kg/m2 Margieurdi Evanssagar DO Work Phone: [facility] 08-28-2022 13:16-0400 Body weight 101.15 kg Margierudi Edouard DO Work Phone: [facility] 07-20-2020 14:44-0500 BMI (Body Mass Index) 30.24 kg/m2 [facility] 07-20-2020 14:44-0500 Body weight 101.15 kg [facility] 07-20-2020 14:44-0500 Height 182.9 cm [facility] 07-01-2019 09:59-0500 BMI (Body Mass Index) 30.79 kg/m2 [facility] 07-01-2019 09:59-0500 Body weight 102.97 kg [facility] 07-01-2019 09:59-0500 Height 182.9 cm [facility] 07-30-2017 11:30-0500 BMI (Body Mass Index) 30.79 kg/m2 Karthik Calloway [facility] Work Phone: 07-30-2017 11:30-0500 Height 182.9 cm Karthik Calloway [facility] Work Phone: 07-30-2017 11:30-0500 Weight 102.97 kg Karthik Calloway [facility] Work Phone: 01-29-2017 12:07-0400 BMI (Body Mass Index) 29.97 kg/m2 Karthik Calloway [facility] Work Phone: 01-29-2017 12:07-0400 Height 182.9 cm Karthik Calloway [facility] Work Phone: 01-29-2017 12:07-0400 Weight 100.25 kg Karthik Calloway [facility] Work Phone: Encounters Encounter Date Encounter Type Care Provider Facility Start: 08-28-2024 End: 08-28-2024 Orders Only Jose Antonio Meyers MD Work Phone: Jose Antonio Meyers MD Comment on above: 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) Start: 08-27-2024 End: 08-27-2024 Bamboo flowsheet Raji Bynum MD Work Phone: [facility] Start: 08-27-2024 End: 08-27-2024 Bamboo flowsheet Raji Bynum MD Work Phone: [facility] Start: 08-27-2024 End: 08-27-2024 Office outpatient visit 15 minutes Raji Bynum MD Work Phone: [facility] Comment on above: Seborrheic keratosis (Primary Dx); Actinic keratosis; Stasis dermatitis of both legs; Lentigines Start: 08-27-2024 End: 08-27-2024 ambulatory RAJI BYNUM Not Available Start: 08-26-2024 End: 08-26-2024 Follow-up encounter Sue Murillo MD Work Phone: Gastroenterology Start: 08-24-2024 End: 08-24-2024 ambulatory JOSE ANTONIO MEYERS Facility:[facility] Start: 08-24-2024 End: 08-24-2024 Office outpatient visit 25 minutes Sue Murillo MD Work Phone: Gastroenterology Comment on above: Lymphocytic colitis (Primary Dx); Esophageal dysphagia Start: 08-24-2024 ambulatory SUE MURILLO Facility: [facility] Start: 08-21-2024 End: 08-21-2024 Telephone encounter Della Tinajero APRN.ATTORNEY LAW CLERK Work Phone: Cardiology Comment on above: Post Dc Program Call - Needs Attn Refill Request Start: 08-18-2024 End: 08-18-2024 ambulatory YULI MARISCAL Facility:[facility] Start: 08-18-2024 End: 08-18-2024 Patient encounter procedure Della Tinajero APRN.CNP Work Phone: Thoracic Clinic Comment on above: Pleural effusion (Pr imary Dx) Start: 08-13-2024 End: 08-13-2024 ambulatory YULI MARISCAL Facility:[facility] Start: 08-13-2024 End: 08-13-2024 Subsequent hospital visit by physician X[facility] Comment on above: Pleural effusion [J9 0] Start: 08-12-2024 End: 08-12-2024 ambulatory ANNE-MARIE BAJWA Not Available Start: 08-12-2024 End: 08-12-2024 Bamboo flowsheet Anne-Marie Bajwa DO Work Phone: [facility] Start: 08-12-2024 End: 08-12-2024 Bamboo flowsheet Anne-Marie Bajwa DO Work Phone: [facility] Start: 08-12-2024 End: 08-18-2024 Telephone encounter Katerina Contreras PA-C Work Phone: Pulmonary Medicine Comment on above: Patient Update Patient Question Patient Request Start: 08-04-2024 End: 08-04-2024 Telephone encounter Ronaldo Simmons MD, PhD Work Phone: Thoracic Clinic Comment on above: Received Outside Med ical Records Start: 07-29-2024 End: 07-29-2024 Orders Only Jose Antonio Meyers MD Work Phone: Jose Antonio Meyers MD Comment on above: Pleural effusion (Pr imary Dx) Start: 07-24-2024 End: 07-24-2024 Orders Only Jose Antonio Meyers MD Work Phone: Jose Antonio Meyers MD Comment on above: Fatigue, unspecified type (Primary Dx) Start: 07-21-2024 End: 07-21-2024 Patient encounter procedure Jose Antonio Meyers MD Work Phone: Jose Antonio Meyers MD Comment on above: Pleural effusion (Pr imary Dx); Muscle cramps; Anasarca; Hypomagnesemia; Lymphocytic colitis Start: 07-20-2024 End: 07-20-2024 ambulatory YULI MARISCAL Facility:[facility] Start: 07-20-2024 End: 07-20-2024 Patient encounter procedure Triston Riggs MD Work Phone: Pulmonary Medicine Comment on above: Pleural effusion (Pr imary Dx); Pleuritis; Pericardial effusion (noninflammatory); Chronic cough Start: 07-20-2024 End: 07-20-2024 ambulatory YULI MARISCAL Facility:[facility] Start: 07-20-2024 End: 07-20-2024 Subsequent hospital visit by physician Xr [facility] Radiology Comment on above: Pleural effusion [J9 0] Start: 07-17-2024 End: 07-17-2024 Chart abstracting Katerina Contreras PA-C Work Phone: Pulmonary Medicine Start: 07-16-2024 End: 07-16-2024 Telephone encounter Triston Riggs MD Work Phone: Pulmonary Medicine Comment on above: Orders Start: 07-16-2024 End: 07-16-2024 ambulatory YULI MARISCAL Facility:[facility] Start: 07-10-2024 End: 07-13-2024 Refjose Edouard DO Work Phone: [facility] Orthopedic Surgeons Start: 07-08-2024 End: 07-09-2024 Chart abstracting Katerina Contreras PA-C Work Phone: Pulmonary Medicine Start: 06-29-2024 End: 06-29-2024 Telephone encounter Benny Ortiz [id number] Comment on above: Appointment Start: 06-22-2024 End: 06-22-2024 Orders Only Katerina Contreras PA-C Work Phone: Pulmonary Medicine Comment on above: Pleural effusion (Pr imary Dx) Pleural effusion (Pr imary Dx); Pleuritis; Lymphocytic colitis; Pericardial effusion (noninflammatory); Interstitial pulmonary disease (HCC) Start: 06-12-2024 End: 06-12-2024 Patient encounter procedure Jose Antonio Meyers MD Work Phone: Jose Antonio Meyers MD Comment on above: 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); Primary hypertension; Lymphocytic colitis; Elevated C-reactive protein (CRP); Exocrine pancreatic insufficiency; Hypokalemia; Anasarca Start: 06-01-2024 End: 06-01-2024 ambulatory YULI MARISCAL Facility:[facility] Start: 06-01-2024 End: 06-01-2024 Office outpatient visit 25 minutes Steffen Sanchez MD Work Phone: Rheumatology Comment on above: Pleural effusion (Pr imary Dx); Elevated sed rate; Elevated C-reactive protein (CRP) Start: 05-29-2024 End: 05-29-2024 ambulatory YULI MARISCAL Facility:[facility] Start: 05-26-2024 End: 05-26-2024 [facility] YULI MARISCAL Facility:[facility] Start: 05-26-2024 End: 05-26-2024 Office outpatient visit 25 minutes Sue Murillo MD Work Phone: Gastroenterology Comment on above: Lymphocytic colitis (Primary Dx) Start: 05-25-2024 End: 05-25-2024 Telephone encounter Marcy Longoria [facility] Admitting Start: 05-18-2024 End: 05-18-2024 ambulatory YULI MARISCAL Facility:[facility] Start: 05-18-2024 End: 05-18-2024 Subsequent hospital visit by physician Xr [facility] Work Phone: Radiology Comment on above: Pleural effusion [J9 0] Start: 05-18-2024 End: 05-18-2024 ambulatory YULI MARISCAL Facility:[facility] Start: 05-18-2024 End: 05-18-2024 Patient encounter procedure Louise Douglas MD Work Phone: Pulmonary Medicine Comment on above: Pleural effusion (Pr imary Dx); Chronic cough; Lung nodule; Lymphocytic colitis Start: 05-13-2024 End: 05-13-2024 Patient encounter procedure Jose Antonio Meyers MD Work Phone: Jose Antonio Meyers MD Comment on above: 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); Anasarca; Chronic cough; Primary hypertension Start: 05-11-2024 End: 05-18-2024 ambulatory Sue Murillo MD Work Phone: Gastroenterology Comment on above: Willie Raymundo Start: 05-07-2024 End: 05-07-2024 ambulatory Sue Murillo MD Work Phone: Gastroenterology Comment on above: Willie Raymundo Start: 05-05-2024 End: 05-07-2024 ambulatory Sue Murillo MD Work Phone: Gastroenterology Comment on above: Willie Raymundo Start: 04-30-2024 End: 04-30-2024 Orders Only Sue Murillo MD Work Phone: [facility] - ENDO Start: 04-28-2024 ambulatory JULIAN BATISTA Facility:[facility] Start: 04-28-2024 End: 04-28-2024 Subsequent hospital visit by physician Vic oPnce MD Work Phone: [facility] - ENDO Comment on above: Diarrhea, unspecifie d type [R19.7] Start: 04-28-2024 ambulatory BOBBY Manuel y:[facility] Start: 04-22-2024 End: 04-22-2024 ambulatory SUE MURILLO Facility:[facility] Start: 04-22-2024 End: 04-22-2024 Subsequent hospital visit by physician [facility] (I-Stat) CT Scan [facility] Comment on above: Diarrhea, unspecifie d type [R19.7] Start: 04-20-2024 End: 04-20-2024 ambulatory YULI MARISCAL Facility:[facility] Start: 04-20-2024 End: 04-20-2024 Office outpatient new 45 minutes Sue Murillo MD Work Phone: Gastroenterology Comment on above: Abdominal pain, unsp ecified abdominal location (Primary Dx); Diarrhea, unspecified type Start: 04-20-2024 End: 04-20-2024 ambulatory YULI E LOIDA Facility:[facility] Start: 03-30-2024 End: 03-30-2024 ambulatory YULI E BALL Facility:[facility] Start: 03-30-2024 End: 03-30-2024 ambulatory YULI E LOIDA Facility:[facility] Start: 03-30-2024 End: 03-30-2024 Office outpatient new 60 minutes Steffen Sanchez MD Work Phone: Rheumatology Comment on above: Pleural effusion (Pr imary Dx); Elevated sed rate; Elevated C-reactive protein (CRP); Diarrhea, unspecified type Start: 03-26-2024 [facility] Start: 03-26-2024 End: 03-26-2024 Subsequent hospital visit by physician [facility] Work Phone: Cardiovascular Testing Comment on above: Pericarditis, unspec ified chronicity, unspecified type [I31.9] Start: 03-17-2024 ambulatory [facility] ty:[facility] Start: 03-17-2024 End: 03-17-2024 Subsequent hospital visit by physician Radio Ct Scan [place] Work Phone: Radiology Comment on above: Interstitial pulmona ry disease (HCC) [J84.9] Start: 03-17-2024 End: 03-17-2024 [facility] Comment on above: Spirometry Start: 03-17-2024 End: 03-17-2024 Patient encounter procedure Ruma Christina PA-C Work Phone: Thoracic Surgery Comment on above: Pleural effusion (Pr imary Dx) Start: 03-17-2024 End: 03-17-2024 Patient encounter procedure Louise Douglas MD Work Phone: PULMONOLOGY [facility] Comment on above: Chronic cough (Prima ry Dx); Pleural effusion; Pleuritis; Interstitial pulmonary disease (HCC); Pericardial effusion (noninflammatory); Pericarditis, unspecified chronicity, unspecified type Start: 03-17-2024 End: 03-17-2024 Subsequent hospital visit by physician Xr [facility] XRAY / RADIOLOGY [facility] Comment on above: Chronic bronchitis, unspecified chronic bronchitis type (HCC) [J42] Start: 03-17-2024 End: 03-17-2024 Patient encounter procedure Pulm [facility] [place] PULMONOLOGY LAB [facility] Start: 03-17-2024 End: 03-17-2024 ambulatory PIETERBerny ARSENIO PULMONOLOGY LAB [facility] Comment on above: Spirometry Start: 03-03-2024 End: 03-03-2024 Telephone encounter Ronaldo Simmons MD, PhD Work Phone: Cardiology Comment on above: Post Dc Program Call - Needs Attn Patient Update Start: 03-03-2024 End: 03-03-2024 ambulatory JOSE ANTONIO MEYERS Facility:[facility] Start: 02-21-2024 End: 02-21-2024 Telephone encounter Ronaldo Simmons MD, PhD Work Phone: Thoracic Clinic Comment on above: Patient Update (Pleu lindsey output ) Start: 02-12-2024 End: 02-12-2024 Patient encounter procedure Yehuda Dial MD Work Phone: Yehuda Dial MD Comment on above: 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); History of pericarditis Start: 02-12-2024 End: 02-12-2024 Patient encounter procedure Jose Antonio Meyers MD Work Phone: Jose Antonio Meyers MD Comment on above: 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); Primary hypertension; Pleural effusion; Chronic cough; Anemia, unspecified type; Hypomagnesemia Start: 02-04-2024 End: 02-04-2024 Patient encounter procedure [facility] SOFTWARE TOOLS DEVELOPER.ATTORNEY LAW CLERK Work Phone: Thoracic Surgery Comment on above: Pleural effusion (Pr imary Dx); Elevated sed rate; Elevated C-reactive protein (CRP) Start: 02-04-2024 End: 02-04-2024 ambulatory [facility] Facility:[facility] Start: 02-04-2024 End: 02-04-2024 Subsequent hospital visit by physician Rolan [facility] Comment on above: Pleural effusion [J9 0] Start: 01-28-2024 End: 01-28-2024 Orders Only Nena Bynum DO Work Phone: [facility] Orthopedic Surgeons Start: 01-24-2024 End: 01-24-2024 ambulatory YULI MARISCAL Facility:[facility] Start: 01-22-2024 Admission to [facility] Tita Landry SOFTWARE TOOLS DEVELOPER.ATTORNEY LAW CLERK Work Phone: Thoracic Surgery Comment on above: Willie jimenez Start: 01-22-2024 ambulatory Anushkapepe dodsonpepe SOFTWARE TOOLS DEVELOPER.ATTORNEY LAW CLERK Work Phone: Thoracic Surgery Start: 01-20-2024 Telephone encounter Ronaldo mercado MD, PhD Work Phone: Thoracic Clinic Comment on above: Received Outside Med ical Records Start: 01-15-2024 End: 01-15-2024 Patient encounter procedure Jose Antonio Meyers MD Work Phone: Jose Antonio Meyers MD Comment on above: 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); Chronic cough; Elevated C-reactive protein (CRP); Elevated sedimentation rate Start: 01-06-2024 End: 01-06-2024 Patient encounter procedure Ruma Christina PA-C Work Phone: Thoracic Surgery Comment on above: Pleural effusion (Pr imary Dx) Recurrent pleural ef fusion (Primary Dx); History of pericarditis; Chronic cough Start: 01-06-2024 End: 01-06-2024 ambulatory RUMA CHRISTINA Facility:[facility] Start: 01-06-2024 End: 01-06-2024 Subsequent hospital visit by physician Xr [facility] Comment on above: 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 [J90] Start: 01-02-2024 End: 01-02-2024 ambulatory YULI MARISCAL Facility:[facility] Start: 12-20-2023 End: 12-26-2023 Evaluation and management of inpatient YEHUDA DIAL Facility:[facility] Start: 12-20-2023 End: 12-20-2023 Patient encounter procedure Anushkapepe DiazGris SOFTWARE TOOLS DEVELOPER.ATTORNEY LAW CLERK Work Phone: Thoracic Surgery Comment on above: Follow-up examinatio n after lung surgery (Primary Dx); Pleural effusion; Bilateral lower extremity edema; Anasarca; Nausea vomiting and diarrhea Start: 12-20-2023 End: 12-20-2023 formerly [facility] Start: 12-20-2023 End: 12-20-2023 Subsequent hospital visit by physician Xr [facility] Comment on above: Pleural effusion [J9 0] Start: 12-17-2023 Telephone encounter Ronaldo mercado MD, PhD Work Phone: Cardiology Start: 12-13-2023 End: 12-13-2023 Patient encounter procedure [facility] SOFTWARE TOOLS DEVELOPER.ATTORNEY LAW CLERK Work Phone: Thoracic Surgery Comment on above: Pleural effusion (Pr imary Dx) Start: 12-13-2023 End: 12-13-2023 formerly [facility] Start: 12-13-2023 End: 12-13-2023 Subsequent hospital visit by physician Xr [facility] Comment on above: Pleural effusion [J9 0] Start: 12-03-2023 Telephone encounter Tita [facility] SOFTWARE TOOLS DEVELOPER.ATTORNEY LAW CLERK Work Phone: Thoracic Clinic Comment on above: Schedule and Confirm Appointments Start: 12-03-2023 End: 12-03-2023 Patient encounter procedure [facility] SOFTWARE TOOLS DEVELOPER.ATTORNEY LAW CLERK Work Phone: Thoracic Surgery Comment on above: Follow-up examinatio n after lung surgery (Primary Dx); Pleural effusion Start: 12-03-2023 End: 12-03-2023 formerly [facility] Start: 12-03-2023 End: 12-03-2023 Subsequent hospital visit by physician Xr [facility] Comment on above: Follow-up exam [Z09] Start: 11-29-2023 End: 11-29-2023 Orders Only [facility] SOFTWARE TOOLS DEVELOPER.ATTORNEY LAW CLERK Work Phone: Thoracic Clinic Comment on above: Follow-up exam (Prim suma Dx) Surgery follow-up [Z 09] Follow-up examinatio n after lung surgery (Primary Dx); Pleural effusion Start: 11-24-2023 Telephone encounter Ronaldo mercado MD, PhD Work Phone: Thoracic Surgery Start: 11-20-2023 End: 11-23-2023 Evaluation and management of inpatient RONALDO SIMMONS Facility:[facility] Start: 11-12-2023 ambulatory ROSEANN ROSARIO Facility :[facility] Start: 11-12-2023 End: 11-12-2023 Subsequent hospital visit by physician Roseann Rosario MD Work Phone: Admitting Comment on above: 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] Start: 11-12-2023 Admission to [facility] YULI LOIDA [facility] Start: 11-12-2023 End: 11-12-2023 ambulatory YULI MARISCAL Facility:[facility] Start: 11-12-2023 End: 11-12-2023 Patient encounter procedure Ronaldo Simmons MD, PhD Work Phone: Thoracic Clinic Comment on above: Pleural effusion (Pr imary Dx) Start: 11-12-2023 Encounter for other preprocedural examination YULI MARISCAL [facility] Start: 11-12-2023 End: 11-12-2023 Patient encounter status Card Injection [facility] Start: 11-12-2023 End: 11-12-2023 Subsequent hospital visit by physician Card Injection [facility] Start: 11-12-2023 End: 11-12-2023 ambulatory RONALDO SIMMONS Facility:[facility] Start: 11-07-2023 Telephone encounter Ronaldo mercado MD, PhD Work Phone: Thoracic Clinic Comment on above: Patient Question (pt not) Start: 10-24-2023 Admission to [facility] Ronaldo Simmons MD, PhD Work Phone: Thoracic Clinic Comment on above: Schedule Surgery (Ri ght VATS biopsy/ pleurodesis cs=2.5 los =2-3) Start: 10-24-2023 End: 10-24-2023 ambulatory Ronaldo Simmons MD, PhD Work Phone: Thoracic Clinic Start: 10-24-2023 Patient encounter status Ronaldo Simmons MD, PhD Work Phone: [facility] Start: 10-24-2023 End: 10-24-2023 Patient encounter procedure Ronaldo Simmons MD, PhD Work Phone: Thoracic Clinic Comment on above: Obesity, Class I, BM I 30-34.9 (Primary Dx); Pleural effusion Start: 10-22-2023 End: 10-22-2023 ambulatory RAJI BYNUM Not Available Start: 10-16-2023 Telephone encounter Ronaldo mercado MD, PhD Work Phone: Thoracic Clinic Comment on above: External Referrals/r esources Start: 10-15-2023 Telephone encounter No Pcp SOFTWARE TOOLS DEVELOPER Ref erring Physician Comment on above: External Referrals/r esources Start: 10-02-2023 End: 10-02-2023 ambulatory DO Calin Samsa Work Phone: [facility] Work Phone: Start: 10-02-2023 End: 10-02-2023 Departed Referred DO Calin Samsa Work Phone: [facility] Start: 10-01-2023 End: 10-01-2023 ambulatory Calin P Samsa Facility:[facility] Start: 10-01-2023 Non-patient / Non-visit DO Shila tirado Samsa Work Phone: [facility] Work Phone: Start: 09-11-2023 Non-patient / Non-visit DO Shila tirado Samsa Work Phone: [facility] Work Phone: Start: 09-05-2023 End: 09-05-2023 ambulatory Calin P Samsa Facility:[facility] Start: 09-05-2023 End: 09-05-2023 ambulatory DO Aclin Samsa Work Phone: [facility] Work Phone: Start: 09-05-2023 End: 09-05-2023 Departed Referred DO Calin Samsa Work Phone: [facility] Start: 09-04-2023 End: 09-04-2023 ambulatory Calin P Samsa Facility:[facility] Start: 09-04-2023 End: 09-04-2023 ambulatory DO Calin Samsa Work Phone: [facility] Work Phone: Start: 09-04-2023 End: 09-04-2023 Departed Referred DO Calin Samsa Work Phone: [facility] Start: 09-04-2023 Non-patient / Non-visit DO Shila tirado Samsa Work Phone: [facility] Work Phone: Start: 08-28-2023 Non-patient / Non-visit DO Shila tirado Samsa Work Phone: [facility] Work Phone: Start: 08-22-2023 Non-patient / Non-visit DO Shila tirado Samsa Work Phone: [facility] Physician [facility] Work Phone: Start: 08-21-2023 Non-patient / Non-visit DO Shila tirado Samsa Work Phone: [facility] Physician [facility] Work Phone: Start: 08-15-2023 Non-patient / Non-visit DO Shila tirado Samsa Work Phone: [facility] Work Phone: Start: 08-13-2023 End: 08-13-2023 Patient encounter procedure DO Calin Samsa Work Phone: [facility] Physician [facility] Work Phone: Start: 07-23-2023 End: 07-23-2023 ambulatory Yuli Mariscal Other [employer] Other Start: 07-23-2023 Patient encounter procedure Yuli Mariscal [facility] Start: 07-10-2023 End: 07-10-2023 ambulatory Yuli Mariscal Other [employer] Other Start: 07-10-2023 Telephone encounter Yuli Mariscal [facility] Start: 07-08-2023 End: 07-08-2023 ambulatory Yuli Mariscal Other [employer] Other Start: 07-08-2023 Telephone encounter Yuli VILLAFUERTE [facility] Start: 07-07-2023 End: 07-07-2023 ambulatory Yuli Mariscal Other [employer] Other Start: 07-07-2023 Telephone encounter Yuli Mariscal [facility] Start: 06-25-2023 End: 06-25-2023 Orders Only Janet Spangler MA [facility] Comment on above: Status post total kn ee replacement, bilateral (Primary Dx) Start: 06-25-2023 Telephone encounter Yuli VILLAFUERTE [facility] Start: 05-07-2023 End: 05-07-2023 ambulatory Yuli Mariscal Other [employer] Other Start: 05-07-2023 Telephone encounter Yuli Mariscal [facility] Start: 04-24-2023 End: 04-24-2023 ambulatory Yuli Mariscal Other [employer] Other Start: 04-24-2023 Telephone encounter Yuli Mariscal [facility] Start: 04-22-2023 End: 04-22-2023 ambulatory Yuli Mariscal Other [employer] Other Start: 04-22-2023 Patient encounter procedure Yuli Mariscal [facility] Start: 04-19-2023 End: 04-19-2023 ambulatory Yuli Mariscal Other [employer] Other Start: 04-19-2023 Telephone encounter Yuli [facility] Start: 04-17-2023 End: 04-17-2023 ambulatory Yuli Mariscal Other [employer] Other Start: 04-17-2023 Telephone encounter Yuli Mariscal [facility] Start: 02-11-2023 End: 02-11-2023 Phys/qhp telephone evaluation 5-10 min Margie Edouard DO Work Phone: [facility] Comment on above: Hallux rigidus of le ft foot (Primary Dx) Start: 02-11-2023 End: 02-15-2023 James Spangler MA [facility] Start: 01-16-2023 End: 01-20-2023 ambulatory [facility]ISCAL [facility] Start: 01-16-2023 End: 01-16-2023 Office outpatient visit 10 minutes Nena Bynum DO Work Phone: [facility] Comment on above: Status post total kn ee replacement, bilateral (Primary Dx) Start: 01-10-2023 End: 01-10-2023 ambulatory Yuli Mariscal Other [employer] Other Start: 01-10-2023 Patient encounter procedure Yuli [facility] Start: 11-19-2022 End: 11-19-2022 ambulatory YULI [facility]ISCAL [facility] Start: 11-19-2022 End: 11-19-2022 Office outpatient visit 15 minutes Margie Edouard DO Work Phone: [facility] Comment on above: Hallux rigidus of le ft foot (Primary Dx) Start: 10-08-2022 End: 10-08-2022 ambulatory YULI MARISCAL [facility] Start: 10-08-2022 End: 10-08-2022 Office outpatient visit 5 minutes Grecia Hill PA-C Work Phone: [facility] Comment on above: Hallux rigidus of le ft foot (Primary Dx); Metatarsalgia, left foot Start: 08-30-2022 Refill Janet Spangler MA [facility] Start: 08-28-2022 End: 09-01-2022 Refill Becca Carrasco [employer] [facility] Start: 08-28-2022 End: 08-28-2022 Office outpatient new 30 minutes Margie Edouard DO Work Phone: [facility] Comment on above: Hallux rigidus of le ft foot (Primary Dx); Eaton's metatarsalgia, left Start: 03-19-2022 End: 03-20-[address] NONE LISTED REQUEST Facility: Start: 08-11-2021 Refill Nena ignacio DO Work Phone: [facility] Comment on above: Status post total kn ee replacement, bilateral (Primary Dx) Start: 08-11-2020 End: 08-11-2020 Orders Only Ana Todd Work Phone: [facility] Start: 07-20-2020 End: 07-20-2020 Office outpatient visit 10 minutes Nena Bynum Work Phone: [facility] Comment on above: Status post total kn ee replacement, bilateral (Primary Dx) Start: 07-01-2019 End: 07-01-2019 Office outpatient visit 10 minutes Nena Byunm Work Phone: [facility] Comment on above: Status post total kn ee replacement, bilateral (Primary Dx) Start: 07-30-2017 Office/outpatient visit, est, level 3 Karthik Calloway Work Phone: [facility] Start: 01-29-2017 End: 01-29-2017 Office outpatient visit 15 minutes Karthik Calloway Work Phone: [facility] Comment on above: 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);Status post total right knee replacement Procedures Date Procedure Procedure Detail Performing Clinician Start: 08-27-2024 CRYOTHERAPY SKIN LESION Raji Bynum MD Work Phone: Start: 08-13-2024 Radiologic exam ches t 2 views Triston Riggs MD Work Phone: Start: 08-12-2024 Computerized ophthal lsieth imaging retina Anne-Marie Bajwa DO Work Phone: Start: 08-12-2024 End: 08-12-2024 Ophth medical xm&eval comprhnsv estab pt 1/> Early dry stage nonexudative age-related macular degeneration of both eyes Anne-Marie Bajwa DO Work Phone: Comment on above: Early dry stage none xudative age-related macular degeneration of both eyes (Primary Dx); Dry eyes; Blepharitis of upper and lower eyelids of both eyes, unspecified type; Bilateral posterior capsular opacification; Chalazion of left upper eyelid Start: 07-20-2024 Us chest real time w /image documentation Triston Riggs MD Work Phone: Start: 07-20-2024 Radiologic exam ches t 2 views [facility] SOFTWARE TOOLS DEVELOPER.ATTORNEY LAW CLERK Work Phone: Start: 05-18-2024 Albumin serum plasma /whole blood Louise Douglas MD Work Phone: Start: 05-18-2024 BF MANUAL DIFF Louise Douglas MD Work Phone: Start: 05-18-2024 Cell count misc body fluids w/differential count Louise Douglas MD Work Phone: Start: 05-18-2024 PH BODY FLUID Louise pratt MD Work Phone: Start: 05-18-2024 Radiologic exam ches t 2 views Louise Douglas MD Work Phone: Start: 05-18-2024 Lipid 1996 panel - S saskia or Plasma Xr [place] Work Phone: Start: 04-28-2024 Esophagoscp rig gómez soral hypopharynx crv esoph Sue Murillo MD Work Phone: Start: 04-28-2024 Colonoscopy flx dx w /collj spec when pfrmd Sue Murillo MD Work Phone: Start: 04-28-2024 Colonoscopy Vic waters MD Work Phone: Start: 04-22-2024 Ct abdomen & pelvis w/contrast material Sue Murillo MD Work Phone: Start: 04-20-2024 EXTRA ECOFIX CONTAIN ER PERFORMABLE Sue Murillo MD Work Phone: Start: 04-20-2024 LAB EXTRA TUBES Sue Murillo MD Work Phone: Start: 04-20-2024 Assay of calprotecti n fecal Sue Murillo MD Work Phone: Start: 04-20-2024 Inf agent det nuclei c acid clostridium amp probe Sue Murillo MD Work Phone: Start: 04-20-2024 PANC ELASTASE, FECAL Jed Murillo MD Work Phone: Start: 04-20-2024 Iaad ia giardia Sue Murillo MD Work Phone: Start: 03-26-2024 Echo tthrc r-t 2d w/wom-mode compl spec&colr d Louise Douglas MD Work Phone: Start: 03-26-2024 LVEF ECHO Uddamiranda hurley MD Work Phone: Start: 03-17-2024 Co diffusing capacity U anastacia Douglas MD Work Phone: Start: 03-17-2024 Nitric oxide gas determination Katerina Adler APRN.ATTORNEY LAW CLERK Work Phone: Start: 03-17-2024 Brncdilat rspse spmt ry pre&post-brncdilat admn Katerina Adler APRN.ATTORNEY LAW CLERK Work Phone: Start: 02-04-2024 Radiologic exam ches t 2 views Ruma Christina PA-C Work Phone: Start: 12-20-2023 Lipid 1996 panel - S saskia or Plasma Xr [facility] Start: 11-12-2023 Us chest real time w /image documentation Roseann Rosario MD Work Phone: Start: 11-12-2023 End: 11-12-2023 Thoracentesis needle/cath pleura w/imaging Roseann Rosario MD Work Phone: Start: 11-12-2023 Myocardial spect mul tiple studies Ronaldo Simmons MD, PhD Work Phone: Start: 11-12-2023 Antibody screen PEREZ MARISCAL Comment on above: Order Comment: Speci men Type: BLOOD SPECIMENOrdering Facility: Address: [address] [place] [address] Performed By: #### T [id number] ####CC MAIN BLOOD BANKCLIA [id number] [place] [address] [place] Start: 10-01-2023 Acid Fast Smear DO Kanchan an [facility] Work Phone: Start: 10-01-2023 AFB Specimen Processing DO Calin [facility] Work Phone: Start: 10-01-2023 Microscopic observat ion [Identifier] in Unspecified specimen by Gram stain DO [facility] Work Phone: Start: 09-04-2023 Acid Fast Smear DO Kanchan an [facility] Work Phone: Start: 09-04-2023 AFB Specimen Processing DO Calin [facility] Work Phone: Start: 09-04-2023 Microscopic observat ion [Identifier] in Unspecified specimen by Gram stain [facility] Work Phone: Start: 10-08-2022 Follow-up visit Follow-up [facility] Start: 03-19-[address] JOANNE Pena ISTED REQUEST Comment on above: Performed By: #### P [facility] #### [facility] [address] [address] [address] Joni Sanders Screening for malign ant neoplasm of colon Yuli Mariscal Other Plan of Treatment Date Care Activity Detail Author Start: 05-27-2034 Urine microalbumin profile DTaP,Tdap,Td Vaccine (2 - Td or Tdap) [facility] Start: 04-28-2034 Screening for malignant neoplasm of colon [facility] Start: 05-18-2029 Lipid panel Lipid Screening [facility] Start: 12-19-2028 Lipid panel Lipid Screening [facility] Start: 08-30-2028 Tetanus vaccination Tetanus: Every 10yrs [facility] Start: 08-29-2027 Diabetes Screening Diabetes Screening [facility] Start: 08-25-2027 Diabetes Screening Diabetes Screening [facility] Start: 07-29-2027 Diabetes Screening Diabetes Screening [facility] Start: 05-29-2027 Diabetes Screening Diabetes Screening [facility] Start: 05-18-2027 Diabetes Screening Diabetes Screening [facility] Start: 04-20-2027 Diabetes Screening Diabetes Screening [facility] Start: 03-30-2027 Diabetes Screening Diabetes Screening [facility] Start: 03-03-2027 Diabetes Screening Diabetes Screening [facility] Start: 01-23-2027 Diabetes Screening Diabetes Screening [facility] Start: 01-01-2027 Diabetes Screening Diabetes Screening [facility] Start: 12-25-2026 Diabetes Screening Diabetes Screening [facility] Start: 12-19-2026 Diabetes Screening Diabetes Screening [facility] Start: 11-22-2026 Diabetes Screening Diabetes Screening [facility] Start: 11-11-2026 Diabetes Screening Diabetes Screening [facility] Start: 2026 Respiratory Syncytial Virus Immunization: Risk, 60-74 Risk, or 75+ (1 - 1-dose 75+ series) Respiratory Syncytial Virus Immunization: Risk, 60-74 Risk, or 75+ (1 - 1-dose 75+ series) [facility] Start: 08-31-2025 End: 08-31-2025 Patient encounter procedure 08/31/2025 1:05 PM EDT Office Visit [facility] [address] [place] [address] Raji Bynum MD [address] [place] [address] [facility] Start: 08-24-2025 BP Controlled (<130/80) BP Controlled (<130/80) [facility] Start: 08-18-2025 BP Controlled (<130/80) BP Controlled (<130/80) [facility] Start: 08-16-2025 End: 08-16-2025 Patient encounter procedure 08/16/2025 1:30 PM EST Office Visit [facility] [address] [place] [address] Anne-Marie Bajwa DO [address] [place] [address] [facility] Start: 07-21-2025 Annual PCP Team Chronic Disease Visit Annual PCP Team Chronic Disease Visit [facility] Start: 06-12-2025 Annual PCP Team Chronic Disease Visit Annual PCP Team Chronic Disease Visit [facility] Start: 06-12-2025 BP Controlled (<130/80) BP Controlled (<130/80) [facility] Start: 05-13-2025 Annual PCP Team Chronic Disease Visit Annual PCP Team Chronic Disease Visit [facility] Start: 05-13-2025 BP Controlled (<130/80) BP Controlled (<130/80) [facility] Start: 04-28-2025 Screening for malignant neoplasm of colon [facility] Start: 02-11-2025 Annual PCP Team Chronic Disease Visit Annual PCP Team Chronic Disease Visit [facility] Start: 02-11-2025 BP Controlled (<130/80) BP Controlled (<130/80) [facility] Start: 02-03-2025 BP Controlled (<130/80) BP Controlled (<130/80) [facility] Start: 01-14-2025 Annual PCP Team Chronic Disease Visit Annual PCP Team Chronic Disease Visit [facility] Start: 09-25-2024 End: 09-25-2024 Patient encounter procedure 09/25/2024 2:00 PM EDT Appointment Gastroenterology [address] [address] Shay Dennis MD [address] [id number] Esophageal dysphagia [R13.19] Gastroenterology Comment on above: Esophageal dysphagia [R13.19] Start: 09-22-2024 End: 09-22-2024 Patient encounter procedure Jose Antonio Meyers MD Comment on above: Follow-up Start: 08-28-2024 End: 11-27-2024 Thyrotropin [Units/volume] in Serum or Plasma JOSE ANTONIO MEYERS MD [facility] Work Phone: Comment on above: Expected: 08/28/2024, Expires: Start: 08-27-2024 End: 08-27-2024 Patient encounter procedure [facility] Comment on above: Arrived Start: 08-24-2024 End: 11-23-2024 Comprehensive metabolic 2000 panel - Serum or Plasma [facility] Comment on above: Expected: 08/24/2024, Expires: Start: 08-24-2024 End: 11-23-2024 Magnesium [Mass/volume] in Serum or Plasma [facility] Comment on above: Expected: 08/24/2024, Expires: Start: 08-24-2024 End: 11-23-2024 Thyrotropin [Units/volume] in Serum or Plasma [facility] Work Phone: Comment on above: Expected: 08/24/2024, Expires: Start: 08-24-2024 End: 08-24-2024 Patient encounter procedure 08/24/2024 11:00 AM EDT Office Visit Gastroenterology [address] [address] Sue Murillo MD [address] [place], [place] [id number] Diarrhea Gastroenterology Comment on above: Diarrhea Start: 08-21-2024 End: 11-20-2024 Basic metabolic 2000 panel - Serum or Plasma BASIC METABOLIC PANEL Lab Routine Recurrent 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 Expected: 08/21/2024, Expires: 11/20/2024 [facility] Work Phone: Comment on above: Expected: 08/21/2024, Expires: Start: 08-18-2024 End: 08-18-2024 Patient encounter procedure 08/18/2024 2:00 PM EST Office Visit Thoracic Clinic [address] [place] [address] Della Tinajero, SOFTWARE TOOLS DEVELOPER.ATTORNEY LAW CLERK [address] [place], [place] [id number] Pleural Effusion [facility] Comment on above: Pleural Effusion Start: 08-13-2024 End: 08-13-2024 Patient encounter procedure 08/13/2024 9:30 AM EST Appointment Radiology [address] [place], [place] [id number] CHEST XR Radiology Comment on above: CHEST XR Start: 08-12-2024 End: 08-12-2024 Patient encounter procedure 08/12/2024 3:00 PM EST Office Visit [facility] [address] [place] [address] Anne-Marie Bajwa DO [address] [place] [address] Arrived [facility] Comment on above: Arrived Start: 07-28-2024 End: 10-27-2024 Magnesium [Mass/volume] in Serum or Plasma MAGNESIUM Lab Routine Hypomagnesemia Expected: 07/28/2024, Expires: 10/27/2024 [facility] Comment on above: Expected: 07/28/2024, Expires: Start: 07-24-2024 End: 10-23-2024 25-hydroxyvitamin D3 [Mass/volume] in Serum or Plasma VITAMIN D 25 HYDROXY Lab Routine Fatigue, unspecified type Expected: 07/24/2024, Expires: 10/23/2024 [facility] Comment on above: Expected: 07/24/2024, Expires: Start: 07-24-2024 End: 10-23-2024 Cobalamin (Vitamin B12) [Mass/volume] in Serum or Plasma VITAMIN B12 Lab Routine Fatigue, unspecified type Expected: 07/24/2024, Expires: 10/23/2024 JORDI MEYERS MD [facility] Work Phone: Comment on above: Expected: 07/24/2024, Expires: Start: 07-24-2024 End: 10-23-2024 Cortisol [Mass/volume] in Serum or Plasma CORTISOL, SERUM Lab Routine Fatigue, unspecified type Expected: 07/24/2024, Expires: 10/23/2024 [facility] Comment on above: Expected: 07/24/2024, Expires: Start: 07-21-2024 End: 10-20-2024 Basic metabolic 2000 panel - Serum or Plasma BASIC METABOLIC PANEL Lab Routine Anasarca Expected: 07/21/2024, Expires: 10/20/2024 [facility] Work Phone: Comment on above: Expected: 07/21/2024, Expires: Start: 07-21-2024 End: 07-21-2024 Patient encounter procedure 07/21/2024 2:00 PM [place] [address] [place] [address] [place] [address] [place] [address] Follow-up Jose Antonio Meyers MD Comment on above: Follow-up Start: 07-20-2024 End: 08-19-2025 XR Chest AP right lateral-decubitus XR CHEST 1V DECUBITUS RIGHT Radiology Routine Pleural effusion Expected: 07/20/2024, Expires: 08/19/2025 [facility] Comment on above: Expected: 07/20/2024, Expires: Start: 07-20-2024 End: 08-19-2025 XR Chest PA and Lateral XR CHEST 2V FRONTAL/LAT Radiology Routine Pleural effusion Expected: 07/20/2024, Expires: 08/19/2025 [facility] Work Phone: Comment on above: Expected: 07/20/2024, Expires: Start: 07-20-2024 End: 07-20-2024 Patient encounter procedure 07/20/2024 1:00 PM EST Office Visit Pulmonary Medicine [address] [place], [place] [id number] Triston Riggs MD [address] [place] [address] Katerina Contreras PA-C [address] [place] [address] H&P Established Patient Pulmonary Medicine Comment on above: H&P Established Patient Start: 06-22-2024 End: 09-21-2024 BODY FLUID CELL COUNT BODY FLUID CELL COUNT Lab Routine Pleural effusion Pleuritis Lymphocytic colitis Pericardial effusion (noninflammatory) Interstitial pulmonary disease (HCC) Expected: 06/22/2024, Expires: 09/21/2024 [facility] Comment on above: Expected: 06/22/2024, Expires: Start: 06-22-2024 End: 09-21-2024 FLOW CYTOMETRY FOR LEUKEMIA/LYMPHOMA (FCLL) FLOW CYTOMETRY FOR LEUKEMIA/LYMPHOMA (FCLL) Lab Routine Pleural effusion Pleuritis Lymphocytic colitis Pericardial effusion (noninflammatory) Interstitial pulmonary disease (HCC) Expected: 06/22/2024, Expires: 09/21/2024 [facility] Comment on above: Expected: 06/22/2024, Expires: Start: 06-22-2024 End: 09-21-2024 Glucose [Mass/volume] in Body fluid GLUCOSE, BODY FLUID Lab Routine Pleural effusion Pleuritis Lymphocytic colitis Pericardial effusion (noninflammatory) Interstitial pulmonary disease (HCC) Expected: 06/22/2024, Expires: 09/21/2024 [facility] Comment on above: Expected: 06/22/2024, Expires: Start: 06-22-2024 End: 09-21-2024 Lactate dehydrogenase [Enzymatic activity/volume] in Body fluid LACTATE DEHYDROGENASE, BODY FLUID Lab Routine Pleural effusion Pleuritis Lymphocytic colitis Pericardial effusion (noninflammatory) Interstitial pulmonary disease (HCC) Expected: 06/22/2024, Expires: 09/21/2024 [facility] Comment on above: Expected: 06/22/2024, Expires: Start: 06-22-2024 End: 06-22-2024 Thoracentesis needle/cath pleura w/imaging THORACENTESIS NEEDLE OR CATHETER ASPIRATION OF THE PLEURAL SPACE W IMAGING GUIDANCE Bronchiolar disease 06/22/2024 10:15 AM EST PULM LAB H23 Start: 06-22-2024 End: 06-22-2024 Patient encounter procedure 06/22/2024 9:00 AM EST Office Visit Pulmonary Medicine [address] [address] Triston Riggs MD [address] [place] [address] [facility] Comment on above: NPV Start: 06-17-2024 Advance Directive Discussion Advance Directive Discussion [facility] Start: 06-12-2024 End: 06-12-2024 Patient encounter procedure 06/12/2024 1:30 PM EST Office [place] [address] [place] [address] [place] [address] [place] [address] Follow-up Jose Antonio Meyers MD Comment on above: Follow-up Start: 06-01-2024 End: 06-01-2024 Patient encounter procedure 06/01/2024 12:30 PM EST Office Visit Rheumatology [address] [address] Steffen Mahoney MD [address] [place] [address] 2mo f/u Rheumatology Comment on above: 2mo f/u Start: 05-26-2024 End: 05-26-2024 Patient encounter procedure 05/26/2024 4:30 PM EST Office Visit Gastroenterology [address] [address] Sue Murillo MD [address] [place] [address] Diarrhea Follow Up Gastroenterology Comment on above: Diarrhea Follow Up Start: 05-20-2024 End: 08-19-2024 Basic metabolic 2000 panel - Serum or Plasma BASIC METABOLIC PANEL Lab Routine Recurrent 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 Anasarca Expected: 05/20/2024, Expires: 08/19/2024 JORDI MEYERS MD [facility] Work Phone: Comment on above: Expected: 05/20/2024, Expires: Start: 05-19-2024 End: 05-19-2024 Patient encounter procedure 05/19/2024 11:30 AM [place] [address] [place] [address] [place] [address] [address] [place], [place] [id number] Follow-up Jose Antonio Meyers MD Comment on above: Follow-up Start: 05-18-2024 End: 08-17-2024 Bacteria identified in Body fluid by Culture BODY FLUID CULTURE AND GRAM STAIN Microbiology Routine Pleural effusion Expected: 05/18/2024, Expires: 08/17/2024 [facility] Comment on above: Expected: 05/18/2024, Expires: Start: 05-18-2024 End: 08-17-2024 CYTOLOGY NON-SECOND CUTTER [facility] [facility] Comment on above: Expected: 05/18/2024, Expires: Start: 05-18-2024 End: 08-17-2024 FATTY ACIDS PROFILE, ESSENTIAL [facility] Work Phone: Comment on above: Expected: 05/18/2024, Expires: Start: 05-18-2024 End: 08-17-2024 FLOW CYTOMETRY FOR LEUKEMIA/LYMPHOMA (FCLL) [facility] Comment on above: Expected: 05/18/2024, Expires: Start: 05-18-2024 End: 08-17-2024 Microorganism identified in Unspecified specimen by Culture AFB CULT + STAIN Microbiology Routine Pleural effusion Expected: 05/18/2024, Expires: 08/17/2024 [facility] Comment on above: Expected: 05/18/2024, Expires: Start: 05-18-2024 End: 05-18-2024 Patient encounter procedure 05/18/2024 10:40 AM EST Office Visit Pulmonary Medicine [address] [place] [address] Louise Douglas MD [address] [place] [address] follow up Pulmonary Medicine Comment on above: follow up Start: 05-13-2024 End: 05-13-2024 Patient encounter procedure 05/13/2024 11:30 AM EST [place] [address] [place] [address] [place] [address] [place] [address] Follow-up Jose Antonio Meyers MD Comment on above: Follow-up Start: 04-28-2024 End: 04-28-2024 Patient encounter procedure [facility] Comment on above: Diarrhea, unspecified type [R19.7] Start: 04-20-2024 End: 04-20-2024 Anesthesia consultation 04/20/2024 11:59 PM EST Anesthesia Event [facility] Endoscopy [facility] [address] [place] [phone] Silvino Henley APRN.CRNA [facility] End[facility] Start: 04-20-2024 End: 04-20-2024 Patient encounter procedure 04/20/2024 12:00 PM EST Office Visit Gastroenterology [address] [address] Sue Murillo MD [address] [place] [address] Diarrhea, unspecified type [R19.7] Gastroenterology Comment on above: Diarrhea, unspecified type [R19.7] Start: 04-13-2024 End: 04-13-2024 Patient encounter procedure 04/13/2024 11:00 AM EDT Office Visit Rheumatology [address] [address] Steffen Mahoney MD [address] [place] [address] J90 (ICD-10-CM) - Pleural effusion Rheumatology Comment on above: J90 (ICD-10-CM) - Pleural effusion Start: 03-30-2024 End: 03-30-2024 Patient encounter procedure 03/30/2024 9:30 AM EDT Office Visit Rheumatology [address] [address] Steffen Mahoney MD [address] [place] [address] J90 (ICD-10-CM) - Pleural effusion Rheumatology Comment on above: J90 (ICD-10-CM) - Pleural effusion Start: 03-26-2024 End: 03-26-2024 Patient encounter procedure 03/26/2024 2:30 PM EDT Appointment Cardiovascular Testing [address] [place] [address] Pericarditis, unspecified chronicity, unspecified type [I31.9] Cardiovascular Testing Comment on above: Pericarditis, unspecified chronicity, un specified type [I31.9] Start: 03-17-2024 End: 03-17-2024 Patient encounter procedure 03/17/2024 4:30 PM EDT Appointment Radiology [address] [place] [address] Interstitial pulmonary disease (HCC) [J84.9] Radiology Comment on above: Interstitial pulmonary disease (HCC) [J8 4.9] Start: 03-17-2024 End: 03-17-2024 Patient encounter procedure Thoracic Surgery Comment on above: Pleural effusion Start: 03-17-2024 End: 03-17-2024 ambulatory 03/17/2024 1:15 PM EDT Procedure Pulmonary Lab [address] [facility] [address] [place] [address] Pleural effusion [J90]; Interstitial pulmonary disease (HCC) [J84.9] Pulmonary Lab Comment on above: Pleural effusion [J90]; Interstitial pul monary disease (HCC) [J84.9] Start: 03-17-2024 End: 03-17-2024 Patient encounter procedure 03/17/2024 10:20 AM EDT Office Visit PULMONOLOGY [facility] [address] [place] [address] Louise Douglas MD [address] [place] [address] NEW Chronic cough pt + [facility] Comment on above: NEW Chronic cough pt + CXR + PFT'S Start: 03-17-2024 End: 03-17-2024 Patient encounter procedure 03/17/2024 9:15 AM EDT Appointment XRAY / RADIOLOGY [facility] [address] [place] [address] Chronic bronchitis, unspecified chronic bronchitis type (HCC) [J42 XRAY / RADIOLOGY [facility] Comment on above: Chronic bronchitis, unspecified chronic bronchitis type (HCC) [J42 Start: 03-17-2024 End: 03-17-2024 ambulatory PULMONOLOGY LAB [facility] Comment on above: Chronic cough [R05.3] Pleural effusion [J9 0]; Interstitial pulmonary disease (HCC) [J84.9] Start: 02-16-2024 Covid-19 Vaccine () Covid-19 Vaccine () [facility] Start: 02-16-2024 Covid-19 Vaccine () Covid-19 Vaccine () [facility] Start: 02-16-2024 Covid-19 Vaccine () Covid-19 Vaccine () [facility] Start: 02-16-2024 Influenza vaccination [facility] Start: 02-12-2024 End: 05-13-2024 Basic metabolic 2000 panel - Serum or Plasma BASIC METABOLIC PANEL Lab Routine Primary hypertension Expected: 02/12/2024, Expires: 05/13/2024 [facility] Comment on above: Expected: 02/12/2024, Expires: 4 Start: 02-12-2024 End: 05-13-2024 CBC panel - Blood by Automated count COMPLETE BLOOD COUNT Lab Routine Primary hypertension Anemia, unspecified type Expected: 02/12/2024, Expires: 05/13/2024 [facility] Work Phone: Comment on above: Expected: 02/12/2024, Expires: 4 Start: 02-12-2024 End: 05-13-2024 Magnesium [Mass/volume] in Serum or Plasma MAGNESIUM Lab Routine Primary hypertension Hypomagnesemia Expected: 02/12/2024, Expires: 05/13/2024 [facility] Comment on above: Expected: 02/12/2024, Expires: 4 Start: 02-12-2024 End: 02-12-2024 Patient encounter procedure 02/12/2024 1:30 PM EDT [place] [address] [id number] [place] [address] [id number] follow up from [facility] Yehuda Dial MD Comment on above: follow up from [facility] Start: 02-12-2024 End: 02-12-2024 Patient encounter procedure 02/12/2024 10:45 AM [place] [address] [place] [address] [place] [address] [place] [address] Follow-up Jose Antonio Meyers MD Comment on above: Follow-up Start: 02-04-2024 End: 02-04-2024 Patient encounter procedure [facility] Comment on above: Recurrent 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 [J90 ] Start: 01-15-2024 End: 04-15-2024 Basic metabolic 2000 panel - Serum or Plasma BASIC METABOLIC PANEL Lab Routine Recurrent 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 Expected: 01/15/2024, Expires: 04/15/2024 [facility] Work Phone: Comment on above: Expected: 01/15/2024, Expires: Start: 01-15-2024 End: 01-15-2024 Patient encounter procedure 01/15/2024 1:00 PM [place] [address] [place] [address] [place] [address] [place] [address] New Patient Jose Antonio Meyers MD Comment on above: New Patient Start: 01-06-2024 End: 01-06-2024 Patient encounter procedure [facility] Comment on above: Recurrent 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 [J90 ] Start: 12-20-2023 End: 12-20-2023 Patient encounter procedure [facility] Comment on above: Pleural effusion Start: 12-13-2023 End: 12-13-2023 Patient encounter procedure [facility] Comment on above: Pleural effusion [J90] Pleural effusion Start: 12-04-2023 End: 12-04-2023 Patient encounter procedure [facility] Comment on above: Discharge follow up Start: 12-03-2023 End: 12-03-2023 Patient encounter procedure [facility] Comment on above: Pleural effusion Start: 12-01-2023 End: 12-23-2024 XR Chest PA and Lateral XR CHEST 2V FRONTAL/LAT Radiology Routine Surgery follow-up Expected: 12/01/2023, Expires: 12/23/2024 [facility] Work Phone: Comment on above: Expected: 12/01/2023, Expires: Start: 11-20-2023 End: 11-20-2023 Admission to same day surgery center 11/20/2023 5:43 PM EDT - 11/20/2023 9:17 PM EDT Surgery Admitting [address] [id number] Ronaldo Simmons MD, PhD [address] [id number] [address] [place] [address] THORACOSCOPY WITH PLEURAL ABRASION Admitting Comment on above: THORACOSCOPY WITH PLEURAL ABRASION Start: 11-20-2023 Subsequent hospital visit by physician 11/20/2023 5:43 PM EDT Hospital Encounter Admitting [address] [place] [address] Ronaldo Simmons MD, PhD [address] [facility] [employer] [address] [id number] [place] [address] Pleural effusion [J90] Admitting Comment on above: Pleural effusion [J90] Start: 11-20-2023 End: 11-20-2023 Thoracoscopy w/dx bx of lung infiltrate unilatrl THORACOSCOPY W/ DIAGNOSTIC BIOPSY(IES) OF LUNG NODULE(S) OR MASS(ES) UNILATERAL Pleural effusion Encounter for other preprocedural examination 11/20/2023 5:43 PM EDT [facility] Start: 11-20-2023 End: 11-20-2023 Thoracoscopy w/pleurodesis THORACOSCOPY WITH PLEURAL ABRASION Pleural effusion Encounter for other preprocedural examination 11/20/2023 5:43 [address] [facility] Start: 11-20-2023 End: 11-20-2023 Admission to same day surgery center 11/20/2023 11:30 AM EDT - 11/20/2023 3:04 PM EDT Surgery Admitting [address] [place] [address] Ronaldo Simmons MD, PhD [address] [employer] [address] [address] THORACOSCOPY WITH PLEURAL ABRASION Admitting Comment on above: THORACOSCOPY WITH PLEURAL ABRASION Start: 11-20-2023 Subsequent hospital visit by physician 11/20/2023 11:30 AM EDT Hospital Encounter Admitting [address] [place] [address] Ronaldo Simmons MD, PhD [address] [employer] [address] [address] Pleural effusion [J90] Admitting Comment on above: Pleural effusion [J90] Start: 11-20-2023 End: 11-20-2023 Thoracoscopy w/dx bx of lung infiltrate unilatrl THORACOSCOPY W/ DIAGNOSTIC BIOPSY(IES) OF LUNG NODULE(S) OR MASS(ES) UNILATERAL Pleural effusion Encounter for other preprocedural examination 11/20/2023 11:30 AM EDT [facility] Start: 11-20-2023 End: 11-20-2023 Thoracoscopy w/pleurodesis THORACOSCOPY WITH PLEURAL ABRASION Pleural effusion Encounter for other preprocedural examination 11/20/2023 11:30 AM EDT [facility] Start: 11-12-2023 End: 11-12-2023 ambulatory Pulmonary Medicine Comment on above: Pleural effusion [J90] Start: 11-12-2023 End: 11-12-2023 Patient encounter procedure Radiology Comment on above: PRE-OP Pleural effusion [J9 0] -or- SM 11/20/23 Anesthesia Start: 11-12-2023 End: 11-12-2023 ambulatory Cardiology Comment on above: PRE-OP Start: 10-28-2023 End: 10-23-2024 aPTT in Platelet poor plasma by Coagulation assay ACTIVATED PARTIAL THROMBOPLASTIN TIME Lab STAT Pleural effusion Encounter for other preprocedural examination Expected: 10/28/2023, Expires: 10/23/2024 [facility] Comment on above: Expected: 10/28/2023, Expires: Start: 10-28-2023 End: 10-23-2024 CBC W Auto Differential panel - Blood COMPLETE BLOOD COUNT AND DIFFERENTIAL Lab STAT Pleural effusion Encounter for other preprocedural examination Expected: 10/28/2023, Expires: 10/23/2024 [facility] Comment on above: Expected: 10/28/2023, Expires: Start: 10-28-2023 End: 10-23-2024 Comprehensive metabolic 2000 panel - Serum or Plasma COMPREHENSIVE METABOLIC PANEL Lab STAT Pleural effusion Encounter for other preprocedural examination Expected: 10/28/2023, Expires: 10/23/2024 [facility] Comment on above: Expected: 10/28/2023, Expires: Start: 10-28-2023 End: 10-23-2024 CONFIRM BLOOD TYPE CONFIRM BLOOD TYPE Blood Bank STAT Pleural effusion Encounter for other preprocedural examination Expected: 10/28/2023, Expires: 10/23/2024 [facility] Comment on above: Expected: 10/28/2023, Expires: Start: 10-28-2023 End: 10-23-2024 ECG COMPLETE ECG COMPLETE ECG STAT Pleural effusion Encounter for other preprocedural examination Expected: 10/28/2023, Expires: 10/23/2024 [facility] Comment on above: Expected: 10/28/2023, Expires: Start: 10-28-2023 End: 11-22-2024 LUNG DIFFUSION CAPACITY (DLCO) LUNG DIFFUSION CAPACITY (DLCO) PFT STAT Pleural effusion Encounter for other preprocedural examination Expected: 10/28/2023, Expires: 11/22/2024 [facility] Comment on above: Expected: 10/28/2023, Expires: Start: 10-28-2023 End: 11-22-2024 NM Heart Perfusion W multiple states of exercise NM CARDIAC PERF STRESS/EXERCISE Radiology STAT Pleural effusion Encounter for other preprocedural examination Expected: 10/28/2023, Expires: 11/22/2024 [facility] Comment on above: Expected: 10/28/2023, Expires: Start: 10-28-2023 End: 10-23-2024 PT panel - Platelet poor plasma by Coagulation assay PROTHROMBIN TIME Lab STAT Pleural effusion Encounter for other preprocedural examination Expected: 10/28/2023, Expires: 10/23/2024 [facility] Comment on above: Expected: 10/28/2023, Expires: Start: 10-28-2023 End: 11-22-2024 SPIROMETRY WITH DILATOR IF OBSTRUCTED SPIROMETRY WITH DILATOR IF OBSTRUCTED PFT STAT Pleural effusion Encounter for other preprocedural examination Expected: 10/28/2023, Expires: 11/22/2024 [facility] Work Phone: Comment on above: Expected: 10/28/2023, Expires: Start: 10-28-2023 End: 01-27-2024 STAPHYLOCOCCUS AUREUS & MRSA SCREEN, PCR, NASAL STAPHYLOCOCCUS AUREUS & MRSA SCREEN, PCR, NASAL Lab STAT Pleural effusion Encounter for other preprocedural examination Expected: 10/28/2023, Expires: 01/27/2024 [facility] Comment on above: Expected: 10/28/2023, Expires: 4 Start: 10-28-2023 End: 10-23-2024 TYPE AND SCREEN,30 DAY TYPE AND SCREEN,30 DAY Blood Bank STAT Pleural effusion Encounter for other preprocedural examination Expected: 10/28/2023, Expires: 10/23/2024 [facility] Comment on above: Expected: 10/28/2023, Expires: Start: 10-28-2023 End: 10-23-2024 URINALYSIS, DIPSTICK ONLY URINALYSIS, DIPSTICK ONLY Lab STAT Pleural effusion Encounter for other preprocedural examination Expected: 10/28/2023, Expires: 10/23/2024 [facility] Comment on above: Expected: 10/28/2023, Expires: Start: 10-28-2023 End: 11-22-2024 XR Chest PA and Lateral XR CHEST 2V FRONTAL/LAT Radiology STAT Pleural effusion Encounter for other preprocedural examination Expected: 10/28/2023, Expires: 11/22/2024 [facility] Comment on above: Expected: 10/28/2023, Expires: Start: 10-24-2023 End: 10-24-2023 Patient encounter procedure 10/24/2023 12:00 PM EDT Office Visit Thoracic Clinic [address] [id number] Ronaldo Simmons MD, PhD [address] [facility] [address] [place] [address] pleural effusion Thoracic Clinic Comment on above: pleural effusion Start: 10-01-2023 Acid Fast Culture Acid Fast Culture [facility] Start: 09-04-2023 Acid Fast Culture Acid Fast Culture [facility] Start: 06-17-2023 Advance Directive Discussion Advance Directive Discussion [facility] Start: 06-17-2023 Behavioral Health Screening Behavioral Health Screening [facility] Start: 02-15-2023 COVID-19 Vaccine ( season) COVID-19 Vaccine ( season) [facility] Start: 02-15-2023 Covid-19 Vaccine ( season) Covid-19 Vaccine ( season) [facility] Start: 02-15-2023 Influenza vaccination [facility] Start: 02-11-2023 End: 02-11-2023 Patient encounter procedure 02/11/2023 1:15 PM EDT Office Visit [facility] [address] [place] [address] Margie Edouard DO [address] [place] [address] [facility] Start: 01-14-2023 End: 01-14-2023 Patient encounter procedure 01/14/2023 1:15 PM EDT Office Visit [facility] [address] [facility] [address] Margie Edouard, DO [address] [place] [address] [facility] Start: 11-19-2022 End: 11-19-2022 Patient encounter procedure 11/19/2022 1:30 PM EDT Office Visit [facility] [address] [facility] [address] Margie Edouard, DO [address] [place] [address] [facility] Start: 10-08-2022 End: 10-08-2022 Patient encounter procedure 10/08/2022 Office Visit Orthopedic Surgery Margie Edouard, DO [address] [place] [address] [facility] Start: 02-15-2022 Influenza vaccination Sequential Influenza Vaccine (#1) [facility] Start: 07-05-2021 COVID-19 Vaccine (4 - Booster for Pfizer series) COVID-19 Vaccine (4 - Booster for Pfizer series) [facility] Start: 07-05-2021 COVID-19 Vaccine (4 - Pfizer series) COVID-19 Vaccine (4 - Pfizer series) [facility] Start: 07-05-2021 COVID-19 Vaccine (5 - Booster) COVID-19 Vaccine (5 - Booster) [facility] Start: 02-15-2021 Influenza vaccination Sequential Influenza Vaccine (#1) [facility] Start: 07-01-2020 End: 07-01-2020 Office Visit 07/01/2020 Office Visit Orthopedic Surgery Nena Bynum, DO [address] [place] [address] [phone] [facility] Start: 02-16-2020 Influenza vaccination given Sequential Influenza Vaccine (#1) [facility] Start: 06-30-2019 Ambulatory 06/30/2019 Office Visit Orthopedic Surgery Karthik Calloway MD [address] [place] [address] [phone] [facility] Start: 02-15-2019 Influenza vaccination given SEQUENTIAL INFLUENZA VACCINE (#1) [facility] Start: 10-25-2018 Administration of herpes zoster vaccine Zoster Vaccines (2 of 2) [facility] Start: 10-25-2018 Shingrix Vaccine (2 of 2) Shingrix Vaccine (2 of 2) [facility] Start: 08-31-2018 Urine microalbumin profile DTaP,Tdap,Td Vaccine (1 - Tdap) [facility] Start: 07-30-2017 Ambulatory 07/30/2017 Office Visit Orthopedic Surgery Karthik Calloway MD [address] [facility] [address] [place] [address] [phone] [facility] Start: 02-15-2017 Influenza vaccination SEQUENTIAL INFLUENZA VACCINE (#1) [facility] Work Phone: Start: 02-15-2017 SEQUENTIAL INFLUENZA VACCINE (#1) SEQUENTIAL INFLUENZA VACCINE (#1) [facility] Work Phone: Start: 2016 Fall risk assessment Falls Risk Assessment [facility] Start: 2016 Pneumococcal vaccination PNEUMOCOCCAL VACCINE AGE 65+ (1 of 2 - PCV13) [facility] Work Phone: Start: 2016 PNEUMOCOCCAL VACCINE AGE 65+ (1 of 2 - PCV13) PNEUMOCOCCAL VACCINE AGE 65+ (1 of 2 - PCV13) [facility] Work Phone: Start: 2011 RSV Vaccine (1 - 1-dose 60+ series) RSV Vaccine (1 - 1-dose 60+ series) [facility] Start: 2011 RSV Vaccine (1 - Risk 60-74 years 1-dose series) RSV Vaccine (1 - Risk 60-74 years 1-dose series) [facility] Start: 2011 Zoster vacc, sc ZOSTER VACCINE [facility] Work Phone: Start: 2001 Screening for malignant neoplasm of colon [facility] Start: 1996 Diabetes Screening Diabetes Screening [facility] Start: 1996 Screening for malignant neoplasm of colon [facility] Start: 1986 Lipid panel Lipid Screening [facility] Start: 1970 Urine microalbumin profile DTaP,Tdap,Td Vaccine (1 - Tdap) [facility] Start: 1969 Annual PCP Team Chronic Disease Visit Annual PCP Team Chronic Disease Visit [facility] Start: 1969 Anxiety Screening Anxiety Screening [facility] Start: 1969 BP Controlled (<130/80) BP Controlled (<130/80) [facility] Start: 1969 Depression Screening Depression Screening [facility] Start: 1969 Hepatitis C antibody, confirmatory test Hepatitis C Screening [facility] Start: 1969 Hepatitis C screening Hepatitis C Screening [facility] Start: 1967 COVID-19 Vaccine (1 of 2) COVID-19 Vaccine (1 of 2) [facility] Start: 1963 Adolescent depression screening assessment Depression Screening (PHQ9) [facility] Start: 1963 Depression screening using PHQ-9 (Patient Health Questionnaire 9) score [facility] Start: 1956 COVID-19 Vaccine (1) COVID-19 Vaccine (1) [facility] Start: 1954 History and physical examination, annual for health maintenance Wellness Visit [facility] Start: 1954 Medicare Wellness Visit Medicare Wellness Visit [facility] Start: 1951 Colonoscopy COLONOSCOPY [facility] Work Phone: Start: 1951 Fall risk assessment Falls Risk Assessment [facility] Start: 1951 Hepatitis C antibody, confirmatory test HEPATITIS C SCREENING [facility] Start: 1951 Prostate specific antigen measurement PSA Level [facility] Start: 1951 Screening for malignant neoplasm of colon [facility] Start: 1951 TETANUS EVERY 10 YR TETANUS EVERY 10 YR [facility] Work Phone: Start: 1951 End: 1951 HEPATITIS C SCREENING HEPATITIS C SCREENING [facility] Work Phone: Start: 1951 Screening colonoscopy COLONOSCOPY [facility] Work Phone: Start: 1951 End: 1951 Tetanus vaccination [facility] Albumin [Mass/volume ] in Body fluid ALBUMIN, BODY FLUID Lab Routine Pleural effusion Ordered: 07/20/2024 [facility] Comment on above: Ordered: 07/20/2024 Albumin [Mass/volume ] in Body fluid ALBUMIN, BODY FLUID Lab Routine Pleural effusion Ordered: 07/20/2024 [facility] Comment on above: Ordered: 07/20/2024 BODY FLUID CELL COUNT BODY FLUID CELL COUNT Lab Routine Pleural effusion Ordered: 07/20/2024 [facility] Comment on above: Ordered: 07/20/2024 Comprehensive metabo lic 2000 panel - Serum or Plasma [facility] CT Chest W contrast IV [facility] End: 04-16-2025 CT Chest W contrast IV CT CHEST W IVCON Radiology Routine Interstitial pulmonary disease (HCC) 1 Occurrences starting 03/17/2024 until 04/16/2025 [facility] Work Phone: Comment on above: 1 Occurrences starting 03/17/2024 until 04/16/2025 CT Chest W contrast IV CT CHEST W IVCON Radiology Routine Interstitial pulmonary disease (HCC) 03/17/2024 4:02 PM EDT [facility] End: 06-17-2025 CT Chest WO contrast CT CHEST WO IVCON Radiology Routine Pleural effusion Lung nodule 1 Occurrences starting 05/18/2024 until 06/17/2025 [facility] Comment on above: 1 Occurrences starting 05/18/2024 until 06/17/2025 End: 03-17-2025 Echocardiography ECHO Cardiology Routine Pericarditis, unspecified chronicity, unspecified type 1 Occurrences starting 03/17/2024 until 03/17/2025 [facility] Comment on above: 1 Occurrences starting 03/17/2024 until 03/17/2025 End: 04-20-2025 EGD DIAGNOSTIC EGD DIAGNOSTIC Endoscopy Routine Diarrhea, unspecified type 1 Occurrences starting 04/20/2024 until 04/20/2025 [facility] Work Phone: Comment on above: 1 Occurrences starting 04/20/2024 until 04/20/2025 End: 08-24-2025 EGD DIAGNOSTIC EGD DIAGNOSTIC Endoscopy Routine Esophageal dysphagia 1 Occurrences starting 08/24/2024 until 08/24/2025 [facility] Comment on above: 1 Occurrences starting 08/24/2024 until 08/24/2025 End: 04-20-2025 Flexible sigmoidoscopy study COLONOSCOPY DIAGNOSTIC Endoscopy Routine Diarrhea, unspecified type 1 Occurrences starting 04/20/2024 until 04/20/2025 [facility] Comment on above: 1 Occurrences starting 04/20/2024 until 04/20/2025 FLOW CYTOMETRY FOR LEUKEMIA/LYMPHOMA (FCLL) PERFORMABLE FLOW CYTOMETRY FOR LEUKEMIA/LYMPHOMA (FCLL) PERFORMABLE Lab Routine Pleural effusion 05/18/2024 12:52 PM [facility] FLOW CYTOMETRY FOR LEUKEMIA/LYMPHOMA (FCLL) PERFORMABLE FLOW CYTOMETRY FOR LEUKEMIA/LYMPHOMA (FCLL) PERFORMABLE Lab Routine Pleural effusion Pleuritis Lymphocytic colitis Pericardial effusion (noninflammatory) Interstitial pulmonary disease (HCC) Ordered: 06/22/2024 [facility] Comment on above: Ordered: 06/22/2024 Lactate dehydrogenas e [Enzymatic activity/volume] in Body fluid LACTATE DEHYDROGENASE, BODY FLUID Lab Routine Pleural effusion Ordered: 07/20/2024 [facility] Work Phone: Comment on above: Ordered: 07/20/2024 Lactate dehydrogenas e [Enzymatic activity/volume] in Body fluid LACTATE DEHYDROGENASE, BODY FLUID Lab Routine Pleural effusion Ordered: 07/20/2024 [facility] Comment on above: Ordered: 07/20/2024 MANUAL DIFFERENTIAL, BODY FLUID MANUAL DIFFERENTIAL, BODY FLUID Lab Routine Pleural effusion 05/18/2024 12:52 PM [facility] End: 02-04-2025 NITRIC OXIDE, EXHALED NITRIC OXIDE, EXHALED PFT Routine Chronic cough Pleural effusion 1 Occurrences starting 01/06/2024 until 02/04/2025 [facility] Work Phone: Comment on above: 1 Occurrences starting 01/06/2024 until 02/04/2025 pH of Body fluid PH BODY FLUID L ab Routine Pleural effusion Ordered: 07/20/2024 [facility] Comment on above: Ordered: 07/20/2024 PH PLEURAL FLUID (FO R USE OUTSIDE OF [facility]) PH PLEURAL FLUID (FOR USE OUTSIDE OF [facility]) Lab Routine Pleural effusion Ordered: 07/20/2024 [facility] Comment on above: Ordered: 07/20/2024 Protein [Mass/volume ] in Body fluid PROTEIN, BODY FLUID Lab Routine Pleural effusion Ordered: 07/20/2024 [facility] Comment on above: Ordered: 07/20/2024 Protein [Mass/volume ] in Body fluid PROTEIN, BODY FLUID Lab Routine Pleural effusion Ordered: 07/20/2024 [facility] Comment on above: Ordered: 07/20/2024 End: 11-26-2024 SIX MINUTE WALK SIX MINUTE WALK PFT Routine Pleural effusion Encounter for other preprocedural examination 1 Occurrences starting 10/28/2023 until 11/26/2024 [facility] Comment on above: 1 Occurrences starting 10/28/2023 until 11/26/2024 End: 02-04-2025 SPIROMETRY WITH DILATOR IF OBSTRUCTED SPIROMETRY WITH DILATOR IF OBSTRUCTED PFT Routine Chronic cough Pleural effusion 1 Occurrences starting 01/06/2024 until 02/04/2025 [facility] Comment on above: 1 Occurrences starting 01/06/2024 until 02/04/2025 SPIROMETRY WITH DILA TOR IF OBSTRUCTED SPIROMETRY WITH DILATOR IF OBSTRUCTED PFT Routine Chronic cough Pleural effusion 03/17/2024 8:07 AM EDT [facility] Work Phone: SURGICAL PATHOLOGY [facility] Work Phone: Comment on above: Release Upon Ordering for 1 Occurrences starting 04/28/2024, 1 completed US Chest limited US CHEST (POC) H23 USE ONLY Imaging Diagnostic Routine Pleural effusion Pleuritis Lymphocytic colitis Pericardial effusion (noninflammatory) Interstitial pulmonary disease (HCC) Ordered: 06/22/2024 [facility] Work Phone: Comment on above: Ordered: 06/22/2024 US Heart Transthoracic [facility] End: 12-28-2024 XR Chest PA and Lateral XR CHEST 2V FRONTAL/LAT Radiology Routine Follow-up exam 1 Occurrences starting 11/29/2023 until 12/28/2024 [facility] Work Phone: Comment on above: 1 Occurrences starting 11/29/2023 until 12/28/2024 XR Chest PA and Lateral XR CHEST 2V FRONTAL/LAT Radiology Routine Surgery follow-up 11/29/2023 2:19 PM EDT [facility] Work Phone: XR Chest PA and Lateral XR CHEST 2V FRONTAL/LAT Radiology Routine Follow-up exam 12/03/2023 12:25 PM EDT [facility] Work Phone: XR Chest PA and Lateral XR CHEST 2V FRONTAL/LAT Radiology Routine Pleural effusion 12/13/2023 1:18 PM EDT [facility] Work Phone: XR Chest PA and Lateral XR CHEST 2V FRONTAL/LAT Radiology Routine Pleural effusion 12/20/2023 1:13 PM EDT [facility] Work Phone: End: 02-04-2025 XR Chest PA and Lateral XR CHEST 2V FRONTAL/LAT Radiology Routine Pleural effusion 1 Occurrences starting 01/06/2024 until 02/04/2025 [facility] Work Phone: Comment on above: 1 Occurrences starting 01/06/2024 until 02/04/2025 XR Chest PA and Lateral XR CHEST 2V FRONTAL/LAT Radiology Routine Recurrent 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 01/06/2024 1:09 PM EDT [facility] Work Phone: End: 03-05-2025 XR Chest PA and Lateral XR CHEST 2V FRONTAL/LAT Radiology Routine Pleural effusion 1 Occurrences starting 02/04/2024 until 03/05/2025 [facility] Work Phone: Comment on above: 1 Occurrences starting 02/04/2024 until 03/05/2025 XR Chest PA and Lateral XR CHEST 2V FRONTAL/LAT Radiology Routine Chronic bronchitis, unspecified chronic bronchitis type (HCC) 03/17/2024 8:41 AM EDT [facility] Work Phone: Immunizations Immunization Date Immunization Notes Care Provider [facility] 05-27-2024 influenza, high dose seasonal, preservative-free Jose Antonio Meyers MD Work Phone: [facility] 05-27-2024 influenza, seasonal, injectable Jose Antonio Meyers MD Work Phone: [facility] 05-27-2024 respiratory syncytia l virus (RSV) vaccine, adjuvanted (AREXVY) Jose Antonio Meyers MD Work Phone: [facility] 05-27-2024 tetanus toxoid, redu ariel diphtheria toxoid, and acellular pertussis vaccine, adsorbed Jose Antonio Meyers MD Work Phone: [facility] 09-13-2020 COVID-19 original vaccine, age 12+ yr, monovalent (SpineForm-BIONTECH - PURPLE TOP) Jose Antonio Meyers MD Work Phone: [facility] 09-12-2020 COVID-19 mRNA, Comirnaty (Pfizer) DO [facility] Work Phone: [facility] 08-22-2020 COVID-19 original vaccine, age 12+ yr, monovalent (PFIZER-BIONTECH - PURPLE TOP) Jose Antonio Meyers MD Work Phone: [facility] 08-15-2020 COVID-19 mRNA, Comirnaty (Identia) DO [facility] Work Phone: [facility] 05-09-2020 influenza virus vaccine, split virus (incl. purified surface antigen) Yuli Mariscal Other [employer] Other 05-09-2020 influenza virus vaccine, unspecified formulation DO [facility] Work Phone: [facility] 05-09-2020 Seasonal trivalent influenza vaccine, adjuvanted, preservative free Jose Antonio Meyers MD Work Phone: [facility] 08-30-2018 tetanus and diphther ia toxoids, adsorbed, preservative free, for adult use (5 Lf of tetanus toxoid and 2 Lf of diphtheria toxoid) Yuli Mariscal Other [facility] 08-30-2018 zoster vaccine recombinant Jose Antonio Meyers MD Work Phone: [facility] 06-04-2018 tetanus and diphther ia toxoids, adsorbed, preservative free, for adult use (5 Lf of tetanus toxoid and 2 Lf of diphtheria toxoid) Yuli Mariscal Other [facility] 02-03-2018 pneumococcal polysaccharide vaccine, 23 valnayeli Mariscal Other [facility] 11-26-2016 pneumococcal conjuga te vaccine, 13 valnayeli Mariscal Other [facility] Payers Date Payer Category Payer Self-pay [id number] 2023 Medicare (Managed Care) AETNA [place] DICARE [id number] 2021 Medicaid AETNA MEDICARE A DVANTAGE [id number] 2016 Medicare AETNA MANAGED ME DICARE AETNA MEDICARE PLAN (PPO) [id number] 2016-Present [id number] 2016 Medicare AETNA MANAGED ME DICARE AETNA MEDICARE PLAN (PPO) [id number] 2016-Present [id number] 2016 Medicare [id number] 2016 Medicare PPO AETNA MEDICARE P MARIANO (PPO) [id number] 1959 Medicare [id number] 1959 Self-pay [id number] 1950 Unknown [id number]. 593 1950 Unknown [id number] 2.840.1.142725.3.579.2. 1950 Unknown [id number] 2.16840.1.814144.3.579.2. 90 1950 Unknown [id number] 2.16.840.1.205939.3.579.2. 90 1950 Unknown [id number] 2.16.840.1.040816.3.579.2. 90 1951 Unknown [id number] 2.16.840.1.795409.3.579.2. 90 1950 Unknown [id number] 2.16840.1.542785.3.579.2. 90 1950 Unknown [id number] 2.16.840.1.716461.3.579.2. 903 1950 Unknown [id number] 2.16.840.1.914856.3.579.2. 903 1950 Unknown [id number] 2.16.840.1.059030.3.579.2. 903 1950 Unknown [id number] 2.16.840.1.616221.3.579.2. 903 1950 Unknown [id number] 2.16.840.1.392663.3.579.2. 1259 1950 Unknown [id number] 2.16.840.1.429068.3.579.2. 1259 1950 Unknown [id number] 2.16.840.1.525334.3.579.2. 1259 Medicare [id number] 2.16.840.1.021054.3.249.13 Unknown [id number] 2.16.840.1.835454.3.579.2. 593 Unknown [id number] 2.16.840.1.394113.3.579.2. 531 Unknown [id number] 2.16.840.1.409451.3.579.2. 531 Unknown [id number] 2.16.840.1.685255.3.579.2. 531 Social History Date Type Detail Facility Start: 07-30-2017 End: 10-23-2023 Tobacco smoking status GAIS Never smoker [facility] Work Phone: Start: 1950 Sex Assigned At Not on file O [facility] Work Phone: Start: 07-01-2019 End: 08-18-2024 Alcohol intake Current drinker of alcohol (finding) [facility] Start: 07-20-2020 End: 10-23-2023 Tobacco use and exposure Never used [facility] Start: 08-18-2022 End: 10-08-2022 Exposure to SARS-CoV-2 (event) Not sure [facility] Start: 08-28-2022 End: 12-11-2023 History of Social function [facility] Work Phone: Start: 08-28-2022 End: 12-11-2023 Tobacco use panel [facility] Work Phone: Start: 1950 Sex Assigned At Male F [facility] National Score (1-10 0), lower number is lower risk Not on file [facility] Has the Net 263, [employer], [employer], or water company threatened to shut off services in your home in past 12Mo No [facility] Work Phone: (I/We) worried wheth er (my/our) food would run out before (I/we) got money to buy more. Never true [facility] Start: 01-15-2024 Alcohol Comment socially, no d rink since 06/2023 [facility] Medical Equipment Procedure Code Equipment Code Equipment Origin al Text Equipment Identifier Dates Cement 1 X 40 [place] Bone Single - [id number] Start: 08-23-2014 Stem Short Cemen prerna Persona - [id number] Start: 08-23-2014 Stem Sz F Tib 5d eg Nonpor Lt Persona - [id number] Start: 08-23-2014 Femoral Sz9 Lt N rw Ps Cmt Ccr Persona - [id number] Start: 08-23-2014 Patella 32mm All Poly Persona - [id number] Start: 08-23-2014 Articular Surf E f 6-9 14mm Lt Ps Vivacit-E Persona - [id number] Start: 08-23-2014 Stem Short Cemen prerna Persona - [id number] Start: 06-25-2016 Patella 32mm All Poly Vivacit-E - [id number] Start: 06-25-2016 Articular Surf 1 4mm 6-9ef Rt Cps Ve Persona - [id number] Start: 06-25-2016 Simplex Hv With Gentamicin Cement Start: 06-25-2016 Stem Sz F Tib 5d eg Nonpor Rt Persona - [id number] Start: 06-25-2016 Femoral Sz9 Rt N rw Ps Cmt Ccr Persona - [id number] Start: 06-25-2016 Cement 1 X 40 Pal[place] Bone Single - [id number] Start: 08-23-2014 Stem Short Cemen prerna Persona - [id number] Start: 08-23-2014 Stem Sz F Tib 5d eg Nonpor Lt Persona - [id number] Start: 08-23-2014 Femoral Sz9 Lt N rw Ps Cmt Ccr Persona - [id number] Start: 08-23-2014 Patella 32mm All Poly Persona - [id number] Start: 08-23-2014 Articular Surf E f 6-9 14mm Lt Ps Vivacit-E Persona - [id number] Start: 08-23-2014 Stem Short Cemen prerna Persona - [id number] Start: 06-25-2016 Patella 32mm All Poly Vivacit-E - [id number] Start: 06-25-2016 Articular Surf 1 4mm 6-9ef Rt Cps Ve Persona - [id number] Start: 06-25-2016 Simplex Hv With Gentamicin Cement Start: 06-25-2016 Stem Sz F Tib 5d eg Nonpor Rt Persona - [id number] Start: 06-25-2016 Femoral Sz9 Rt N rw Ps Cmt Ccr Persona - [id number] Start: 06-25-2016 Cement 1 X 40 [place] Bone Single - [id number] Start: 08-23-2014 Stem Short Cemen prerna Persona - [id number] Start: 08-23-2014 Stem Sz F Tib 5d eg Nonpor Lt Persona - [id number] Start: 08-23-2014 Femoral Sz9 Lt N rw Ps Cmt Ccr Persona - [id number] Start: 08-23-2014 Patella 32mm All Poly Persona - [id number] Start: 08-23-2014 Articular Surf E f 6-9 14mm Lt Ps Vivacit-E Persona - [id number] Start: 08-23-2014 Stem Short Cemen prerna Persona - [id number] Start: 06-25-2016 Patella 32mm All Poly Vivacit-E - [id number] Start: 06-25-2016 Articular Surf 1 4mm 6-9ef Rt Cps Ve Persona - [id number] Start: 06-25-2016 Simplex Hv With Gentamicin Cement Start: 06-25-2016 Stem Sz F Tib 5d eg Nonpor Rt Persona - [id number] Start: 06-25-2016 Femoral Sz9 Rt N rw Ps Cmt Ccr Persona - [id number] Start: 06-25-2016 Cement 1 X 40 Palacos Bone Single - [id number] Start: 08-23-2014 Stem Short Cemen prerna Persona - [id number] Start: 08-23-2014 Stem Sz F Tib 5d eg Nonpor Lt Persona - [id number] Start: 08-23-2014 Femoral Sz9 Lt N rw Ps Cmt Ccr Persona - [id number] Start: 08-23-2014 Patella 32mm All Poly Persona - [id number] Start: 08-23-2014 Articular Surf E f 6-9 14mm Lt Ps Vivacit-E Persona - [id number] Start: 08-23-2014 Stem Short Cemen prerna Persona - [id number] Start: 06-25-2016 Patella 32mm All Poly Vivacit-E - [id number] Start: 06-25-2016 Articular Surf 1 4mm 6-9ef Rt Cps Ve Persona - [id number] Start: 06-25-2016 Simplex Hv With Gentamicin Cement [id number] Start: 06-25-2016 Stem Sz F Tib 5d eg Nonpor Rt Persona - [id number] Start: 06-25-2016 Femoral Sz9 Rt N rw Ps Cmt Ccr Persona - [id number] Start: 06-25-2016 Goals Date Patient Goal Desired Activity /State Personal health goal Functional Status Date Assessment Result Facility 12-26-2023 Are you deaf, or do you have serious difficulty hearing No 12/26/2023 4:30 PM Rojas Coley RN No [facility] 12-26-2023 Are you blind, or do you have serious difficulty seeing, even when wearing glasses No 12/26/2023 4:30 PM Rojas Coley RN No [facility] 12-26-2023 Do you have serious difficulty walking or climbing stairs No 12/26/2023 4:30 PM Rojas Coley RN No [facility] 12-26-2023 Do you have difficul ty dressing or bathing No 12/26/2023 4:30 PM Rojas Coley, EVAN No [facility] 12-26-2023 Because of a physica l, mental, or emotional condition, do you have difficulty doing errands alone such as visiting a physician's office or shopping No 12/26/2023 4:30 PM EDT Rojas Cline RN No [facility] Mental Status Date Assessment Result Facility 12-26-2023 Because of a physica l, mental, or emotional condition, do you have serious difficulty concentrating, remembering, or making decisions No 12/26/2023 4:30 PM EDT Rojas Cline RN No [facility] Clinical Notes 08-28-2022 to 08-27-2024 Raji Bynum MD - 08/27/2024 1:05 PM EDTTelephone Encounter - Britney Hsu RN - 08/26/2024 4:27 PM EDTTelephone Encounter - Britney Hsu RN - 08/26/2024 4:27 PM EDTPatient Instructions Note Date & Type Note Facility 08-27-2024 History of Present illness Narrative Skin Check Location: Patient requests a full body skin examination Dermatologic history: history of Actinic Keratosis, history of Basal Cell Carcinoma Last visit: 1 year ago Established patient All pertinent medical history, medications, and allergies were reviewed. General Exam: alert, oriented to person, place, and time, normal affect, well appearing Unaccompanied Scalp, Examined , exam limited by hair Right leg Examined Head, Face Examined , Exam limited by mustache Left leg Examined Neck Examined Right foot Examined Chest Examined Left foot Examined Back Examined Buttocks Examined Abdomen Examined Digits,nails: Examined Right arm Examined Left arm Examined Lymphatics: Not examined Hands Examined 1. Seborrheic keratosis Torso - Posterior (Back) Stuck on verrucous, de la garza-brown papules and plaques. Patient was counseled regarding these benign growths. Removal is normally not necessary, but they may be removed if they are symptomatic or for cosmetic reasons. 2. Actinic keratosis (8) Left Buccal Cheek, Left Malar Cheek (2), Left Parotid Area, Left Zygomatic Area, Right Buccal Cheek, Right Eyebrow, Right Zygomatic Area Erythematous scaly papules Patient was counseled regarding these sun-induced growths that can develop into squamous cell carcinoma if left untreated. Discussed treatment with cryotherapy. It was emphasized that any treated lesions that fail to resolve should be re-evaluated. Cryotherapy performed today; see procedure note Diagnosis: Actinic keratosis Indication: Precancerous Location: see skin exam Consent: Verbal consent was obtained and risks were discussed, including, but not limited to risks of scarring, darker or cosmetician apprentice pigmentary changes, recurrence, incomplete removal and infection. Method: Liquid nitrogen was used to treat the lesion(s) with two 5-10 second freeze-thaw cycles. Eyes were shielded using cotton pad during procedure Number of lesions treated: 8 Post-procedure instructions: Instructions were given orally and in writing. The office will be contacted if the lesion fails to resolve despite treatment, or if a side effect develops such as abnormal crusting, scabbing, redness or tenderness Cryotherapy, skin lesion - Left Buccal Cheek, Left Malar Cheek (2), Left Parotid Area, Left Zygomatic Area, Right Buccal Cheek, Right Eyebrow, Right Zygomatic Area 3. Stasis dermatitis of both legs Left Lower Leg - Anterior Cass scaly plaques in areas of edema, mild, early lipodermatosclerosis formation The patient was informed that stasis dermatitis is a chronic rash on the lower legs due to swelling often caused by poor circulation. The patient was instructed to keep the legs elevated when seated, avoid standing for long periods of time, and to wear compression stockings. Patient declines treatment at this time. 4. Lentigines (2) Head - Anterior (Face), Torso - Posterior (Back) Scattered de la garza macules in sun-exposed areas. The patient was informed that lentigines are benign pigmented lesions that occur on sun-exposed and sun-damaged skin. No treatment is necessary. Recommended regular use of broad spectrum sunscreen SPF 30 or higher Next Visit: 1 year documented in this encounter [facility] 08-26-2024 Telephone encounter Note Patient spouse (ayaka) returned call. Verified patient name and . Advised potassium levels were low and elevated kidney function. To please follow up with PCP and Dr. Meyers. verbalized understanding and agreed, Will follow up as needed. Britney Shen RN [facility] 08-26-2024 Miscellaneous Notes Patient spouse (ayaka) returned call. Verified patient name and . Advised potassium levels were low and elevated kidney function. To please follow up with PCP and Dr. Meyers. verbalized understanding and agreed, Will follow up as needed. Britney Shen RN ----- Message from Sue Murillo MD sent at 08/26/2024 12:41 PM EDT ----- Please call patient and let him know that his potassium levels are down with elevated kidney function test. He is already on potassium supplements. Needs to touch base with his PCP and Dr Meyers for further management Attempted to call patient no answer. Left message to return call. Mychart message sent to call nurse. Will follow up as needed. Britney Shen RN Please call patient and let him know that his potassium levels are down with elevated kidney function test. He is already on potassium supplements. Needs to touch base with his PCP and Dr Meyers for further management documented in this encounter [facility] 08-26-2024 Telephone encounter Note ----- Message from Sue Murillo MD sent at 08/26/2024 12:41 PM EDT ----- Please call patient and let him know that his potassium levels are down with elevated kidney function test. He is already on potassium supplements. Needs to touch base with his PCP and Dr Meyers for further management Attempted to call patient no answer. Left message to return call. Mychart message sent to call nurse. Will follow up as needed. Britney Shen RN [facility] 08-26-2024 Progress note Formatting of t his note might be different from the original. Please call patient and let him know that his potassium levels are down with elevated kidney function test. He is already on potassium supplements. Needs to touch base with his PCP and Dr Meyers for further management [facility] Work Phone: 08-24-2024 History of Present illness Narrative Follow Up Visit SUBJECTIVE 74 year old male with lymphocytic colitis here for follow-up. Last seen 05/26/2024. Changes and test results since last visit: He is off of budesonide since a month Coughing, vomiting and swallowing issues. Started on Lost about 11 lbs weight loss. Legal Analyst wants to start steroid injections directly into pleural cavity. CBC: WBC (k/uL) Date Value 07/29/2024 7.62 Hematocrit (%) Date Value 07/29/2024 34.6 (L) MCV (fL) Date Value 07/29/2024 95.1 Platelet Count (k/uL) Date Value 07/29/2024 222 Lymphocytes % (%) Date Value 04/20/2024 11.9 Hepatic Function Panel: Albumin (g/dL) Date Value 07/20/2024 3.9 Bilirubin, Total (mg/dL) Date Value 05/18/2024 0.7 Alkaline Phosphatase (U/L) Date Value 05/18/2024 174 (H) AST (U/L) Date Value 05/18/2024 28 ALT (U/L) Date Value 05/18/2024 22 Protein, Total (g/dL) Date Value 07/20/2024 7.6 Current Clinical Symptoms # of bowel movements daily: usually 3 to 4, Pt stated that he hasn't had one for 36 to 48 hrs # of liquid stools daily: 0 Consistency: formed, hard Bloody bowel movements: no Urgency: no Abdominal pain: no Abdominal distention: yes Nausea/vomiting: yes Weight loss over last 3 months: yes: 11lbs in 2 days General well-being: poor Patient-Entered Data 10/23/2023 PROMIS Global Health - (T-Scores - the mean of general population = 50. Five points is a clinically meaningful difference.) Physical T-Score 44.9 Mental T-Score 43.5 10/23/2023 PROMIS Global Health Scale Physical Health Percentile 31 Mental Health Percentile 26 Current Outpatient Medications Medication Sig Dispense Refill metOLazone (ZAROXOLYN) 5 mg tablet Take 1 tablet by mouth once daily. 30 tablet 0 budesonide, enteric coated (ENTOCORT EC) 3 mg 24 hr capsule Take 3 mg by mouth once daily. (Patient not taking: Reported on 08/18/2024) ascorbic acid, vitamin C, (VITAMIN C) 500 mg tablet Take 1,000 mg by mouth once daily. multivit-min/ferrous fumarate (MULTI VITAMIN ORAL) Take 1 tablet by mouth once daily. guaifenesin/dextromethorphan (MUCINEX DM ORAL) Take by mouth two times a day. loratadine (CLARITIN) 10 mg tablet Take 10 mg by mouth once daily. potassium chloride ER (KLOR-CON M20) 20 mEq tablet Take 2 tablets by mouth two times a day. 360 tablet 0 torsemide (DEMADEX) 100 mg tablet Take 1 tablet by mouth once daily. 90 tablet 0 calcium ggb-vay-N5-Zn-electron microscopist-kian 250 mg-40 mg- 125 unit-3.75mg tab Take by mouth. pantoprazole DR (PROTONIX) 40 mg tablet Take 1 tablet by mouth two times a day. 180 tablet 0 diclofenac (VOLTAREN) 1 % topical gel amoxicillin (AMOXIL) 500 mg capsule allopurinol (ZYLOPRIM) 300 mg tablet Take 300 mg by mouth once daily. atorvastatin (LIPITOR) 10 mg tablet Take 1 tablet by mouth once daily. No current facility-administered medications for this visit. ALLERGIES Allergen Reactions Tramadol Mental Status Change PHYSICAL EXAMINATION There were no vitals taken for this visit. General Appearance: alert, oriented x 3, pleasant and in no acute distress Heart:regular rate and rhythm, no murmurs or gallops Abdomen: Not distended. Normal bowel sounds. Soft and non-tender. No masses or organomegaly. Skin: no rashes or lesions Lymph:No cervical, axillary, supraclavicular, or inguinal adenopathy. Assessment IMPRESSION -Constipation -Lymphocytic colitis -Anasarca/ recurrent pleural effusions. Planning to get steroid injections in the pleural cavity PLAN -treat and avoid constipation with Miralax and stool softeners -Blood and stool tests -EGD with possible dilation -continue with PPI Sue Murillo MD, MD August 23, 2024 7:06 PM Pt stated that he is having problems swallowing. Pt coughs and throws up for the food that gets stuck and then he can eat some more. documented in this encounter [facility] 08-24-2024 Note [facility] 08-24-2024 Note [facility] 08-21-2024 Telephone encounter Note Images from the original note were not included. [facility] [place] Phone Encounter DATE of SERVICE: 08/21/2024 TIME of SERVICE: 10:28 AM Status: Non-urgent, needs attention Service/Provider: Thoracic Surgery Ronaldo Simmons M.D. Reason for call: Care Coordination Contact information: [facility] nurse, Resolution: Sent to [facility] Comments: Roney Campos home care nurse, called the [facility] post-discharge line to ask to speak with Della Tinajero CNP as she just left a visit with the patient, Sav Raymundo. Beth wants to discuss with Della that the patient's weight is up to 193 pounds today, he had 220 cc of drainage from the PleurX and she has questions about if he should cough to get more drainage, also Beth mentioned the patient has a poor appetite, dizziness, lightheadedness and constipation. Ayana Cheung RN Date of Resolution: 08/21/2024 Time of Resolution 10:28 AM [facility] 08-21-2024 Miscellaneous Notes Images from the original note were not included. [facility] [place] Phone Encounter DATE of SERVICE: 08/21/2024 TIME of SERVICE: 10:28 AM Status: Non-urgent, needs attention Service/Provider: Thoracic Surgery Ronaldo Simmons M.D. Reason for call: Care Coordination Contact information: [facility] nurse, Resolution: Sent to [facility] Comments: Roney Campos home care nurse, called the [facility] post-discharge line to ask to speak with Della Tinajero CNP as she just left a visit with the patient, Sav Raymundo. Beth wants to discuss with Della that the patient's weight is up to 193 pounds today, he had 220 cc of drainage from the PleurX and she has questions about if he should cough to get more drainage, also Beth mentioned the patient has a poor appetite, dizziness, lightheadedness and constipation. Ayana Cheung RN Date of Resolution: 08/21/2024 Time of Resolution 10:28 AM documented in this encounter [facility] 08-18-2024 Note [facility] 08-18-2024 History of Present illness Narrative Images from the original note were not included. Heart, Vascular and Thoracic [place] DEPARTMENT OF THORACIC SURGERY OUTPATIENT VISIT TYPE ESTABLISHED Part of this note was copied from previous note, all content has been individually reviewed, updated as necessary, and thoroughly reviewed. PT NAME: Sav Raymundo [facility] NO: [id number] THORACIC SURGEON: Ronaldo Simmons M.D. DATE OF SERVICE: 08/18/2024 PRINCIPAL DX: Pleural Effusion SURGICAL HX 11/20/2023: R VATS pleural biopsy, right mechanic assistant and doxycycline pleurodesis, right Pleurx catheter insertion, right 20Fr chest tube insertion Surgical Pathology 11/20/2023: FINAL DIAGNOSIS A. Right pleura, biopsy: - Chronic pleuritis with mesothelial hyperplasia (see comment). B. Right pleura, biopsy: - Acute organizing and chronic pleuritis (see comment). TN/ 11/22/2023 Diagnosis Comment A. The biopsy contains pleural tissue with chronic inflammation and focal reactive mesothelial hyperplasia. An immunohistochemical stain for BAP 1 shows retained nuclear expression of the mesothelial cells. B. The pleura shows areas with extensive granulation tissue associated with reactive mesenchymal mesothelial proliferation. Immunohistochemical stains were performed to exclude the possibility of mesothelial or vascular neoplasm. The mesothelial proliferation is positive for cytokeratin CAM 5.2, cytokeratin AE1/AE3, WT1, and focally for calretinin and smooth muscle actin. The cytokeratin stains do not show extension of the mesothelial proliferation into deeper adjacent tissues. All cells are negative for claudin-4. ERG highlights the vascular network of thin walled vessels arranged mostly perpendicular to the pleural surface. A BAP 1 stain shows retained nuclear expression. PU 1 highlights numerous histiocytes associated with the reactive proliferation. Drs. Della Subramanian and Zeus Hinton have also reviewed this case and agree that there is no definitive evidence of malignancy. Right pleural fluid cytology: FINAL DIAGNOSIS A - Pleural Cavity, Right, Fluid, Thoracentesis - Right pleural fluid Negative for malignant cells. Acute and chronic inflammation. The following cell blocks were associated with this case: A1 Cell Block, Alcohol Fixed ON FOR VISIT: Pleurex evaluation HPI: Sav Raymundo is a 74 year old male with a PmHX significant for HTN, hyperlipidemia, gout, GERD. Patient seen 07/2023 for a few months lasting cough. He had a chest CT on 08/15/23 showing moderate R pleural effusion. He had thoracentesis twice on 09/04/23 and 10/01/2023, cytology was negative both times and chemical analysis was consistent with an exudate. The right pleural effusion persists per most recent CT on 10/18/23. He also has a small to moderate pericardial effusion seen on imaging and on ECHO that was done in 09/04/23, otherwise with good cardiac function(pericardial effusion almost completely resolved on last CT). Imaging has also been consistent with small to moderate left pleural effusion that has almost completely resolved on last CT. On 11/20/2023, patient underwent R VATS pleural biopsy, right mechanic assistant and doxycycline pleurodesis, right Pleurx catheter insertion, right 20Fr chest tube insertion. He was hospitalized 12/20/23 for anasarca, possible autoimmune disease, recurrent pleural effusion. Imaging did not reveal any acute findings. Patient was admitted to [facility] and started on lasix drip, improving anasarca and pleural effusion. Pleurx catheter was drained daily with significantly decreasing output [phone]. He was worked up for an autoimmune disease as well. He was discharged on an increased dose of lasix (20mg > 80mg) and started on Plaquenil. PHYSICAL EXAM: VITAL SIGNS: BP 111/67 Pulse 82 Temp 36.8 C (98.2 F) (Oral) Resp 14 Ht 182.9 cm (6') Wt 88.4 kg (194 lb 12.8 oz) SpO2 98% BMI 26.42 kg/m Room air Incision location: Right Thoracoport sites Incision Assessment: Well approximated and no drainage, swelling, erythema or warmth Drain/Tubes: Pleurex Catheter GENERAL no acute distress alert and oriented x3 HEENT normocephalic, head midline, oral mucous membranes moist ABDOMEN soft nontender, nondistended. Bowel sounds active x 4 quadrants EXTREMITIES no clubbing, cyanosis or edema MUSCULOSKELETAL gait within normal limits SKIN no rashes or petechiae IMAGING/TESTS: CXR 08/13/24: INTERVAL HISTORY: Sav Raymundo presents to clinic today for evaluation of his pleurex catheter. He has been draining the catheter daily and has had between 100-150 cc of fluid drained. No significant SOB. Does not feel any change in his breathing after drainage. Catheter is drained today fro 100 cc of serous fluid. He tolerated this well and drained until dry. Spoke with Dr Riggs in pulmonary. He planned to have the patient drain the catheter daily and if output dropped below 50 cc for 3 consecutive drains, would be able to hold for a week and return for US. Unfortunately, output remains over [address] Riggs states that he wishes to perform intrapleural steroid injection using Triamcinolone. This would be done every 2-4 weeks x 3. If this does not work and he continues to have drainage, would then suggest talc pleurodesis. Dr Simmons is updated on this plan and is in agreement. If a talc pleurodesis is warranted, he wishes to do this in the OR. Mr Kimberly is agreeable to this plan. Dr Riggs will be in touch to schedule the procedure next week. IMPRESSION: 73 year old male with pmh significant for recurrent right pleural effusion s/p R VATS pleural biopsy, right mechanic assistant and doxycycline pleurodesis, right Pleurx catheter insertion, right 20Fr chest tube insertion on 11/20/[address] Simmons. PLAN: - continue draining the pleurex daily - Dr Riggs/pulm to perform intrapleural steroid injection - return as needed Della Tinajero APRN.[employer] documented in this encounter [facility] 08-14-2024 Note Right Eye Quality was good. Scan locations included subfoveal. Progression has been stable. Findings include normal observations. Left Eye Quality was good. Scan locations included subfoveal. Progression has been stable. Findings include normal observations. Notes Good scan with normal appearance [facility] 08-13-2024 Note [facility] 08-12-2024 History of Present illness Narrative Images from the original note were not included. Assessment/Plan Diagnoses and all orders for this visit: Early dry stage nonexudative age-related macular degeneration of both eyes - ARMD OU, dry. Importance of smoking cessation, blood pressure control, and healthy diet were emphasized. Patient was advised to consider ultraviolet-B blocking sunglasses. In accordance with the AREDS study, appropriate antioxidant and mineral supplements were prescribed. Patient was instructed to self monitor their monocular vision (reading/Amsler Grid) at least weekly. Patient should immediately report any new onset of decreased vision or metamorphopsia. Dry eyes - Dry Eyes OU -- Environmental changes to minimize dryness and exposure and the use of artificial tears were recommended. Blepharitis of upper and lower eyelids of both eyes, unspecified type - Blepharitis, posterior type OU - The patient exhibits inspissated meibomian glands. Warm compresses, lid massage and lid scrubs were recommended. Bilateral posterior capsular opacification - PCO OU: (Posterior Capsule Opacification) Can be observed without intervention if PCO is not visually significant. Nd:YAG laser capsulotomy may be considered if impairment of vision rises to a level that dose not meet the patient's functional needs or interferes with activities of daily living. Risks, benefits and alternatives to the procedure will be reviewed. If the patient has undergone Nd:YAG laser capsulotomy, they are to notify their research animal facility supervisor promptly if they have a significant change in symptoms, such as flashes of light (photopsia), an increase in floaters, loss of visual field or decrease in visual acuity. Chalazion of left upper eyelid - The condition was discussed with the patient. It was detailed that they perform aggressive warm, moist compresses for 2 minutes at a time 10-12xs/day. They were warned that there can be blood and pus if the lesion were to open up. This is normal and they should continue usage of the compresses. Also, a prescription for an antibiotic/steroid combination drop was started for 2 wks. They understand to call back with any worsening or prolongation of the resolution of the lesion. documented in this encounter [facility] 08-12-2024 Telephone encounter Note Patient requesting return call from Katerina. Please call [phone] I informed patient Beth from [facility] called today and spoke with office. [facility] 08-12-2024 Miscellaneous Notes Patient requesting return call from Katerina. Please call [phone] I informed patient Beth from [facility] called today and spoke with office. documented in this encounter [facility] 08-12-2024 Telephone encounter Note Beth from [facility] called and would like to speak to Katerina. Spoke with Beth She informed me that pt going to local ED for evaluation. Update: Pt had b/l US - report from [facility] was negative for DVTs was received and sent to be entered into scanned docs. Pt notified of results. Katerina Contreras PA-C [facility] 08-12-2024 Miscellaneous Notes Beth from [facility] called and would like to speak to Katerina. Spoke with Beth She informed me that pt going to local ED for evaluation. Update: Pt had b/l US - report from [facility] was negative for DVTs was received and sent to be entered into scanned docs. Pt notified of results. Katerina Contreras PA-C documented in this encounter [facility] 08-12-2024 Telephone encounter Note Beth from [facility] called and updated she left a voicemail regarding this patient. He is having issues with pleurrX drain, swelling, weight gain, nausea and constipation. She would like a call back at [phone] Spoke with pt's [facility] nurse, Beth. Pt still draining daily and getting ~ 100 ml. Pt does coughing and deep breathing to tease out more volume. Pt notes weight gain 190 lbs for the past month. . He weight ranges between 186 - 200 per his flow sheet records. No appetite, + nausea, has abd swelling and BLE edema, L > R. Not on anticoag. Last CTs were Apr 2024. Pt/ inquire about meeting with Dr. Simmons. Of note, they are meeting with HAIR COLORIST Della Tinajero on , 08/18/24. Update communicated to Dr. Riggs. Katerina Contreras PA-C Addendum: Nurse reports pt plans on going to local [facility] Katerina Contreras PA-C [facility] 08-12-2024 Miscellaneous Notes Beth from [facility] called and updated she left a voicemail regarding this patient. He is having issues with pleurrX drain, swelling, weight gain, nausea and constipation. She would like a call back at [phone] Spoke with pt's [facility] nurse, Beth. Pt still draining daily and getting ~ 100 ml. Pt does coughing and deep breathing to tease out more volume. Pt notes weight gain 190 lbs for the past month. . He weight ranges between 186 - 200 per his flow sheet records. No appetite, + nausea, has abd swelling and BLE edema, L > R. Not on anticoag. Last CTs were Apr 2024. Pt/ inquire about meeting with Dr. Simmons. Of note, they are meeting with HAIR COLORIST Della Tinajero on , 08/18/24. Update communicated to Dr. Riggs. Katerina Contreras PA-C Addendum: Nurse reports pt plans on going to local hospital Katerina Contreras PA-C documented in this encounter [facility] 08-04-2024 Telephone encounter Note Received missed visit notes from [facility], record scannned in [employer] Jahaira Wood, linux administrator [facility] 08-04-2024 Miscellaneous Notes Received missed visit notes from [facility], record scannned in [employer] Jahaira Wood, linux administrator documented in this encounter [facility] 07-21-2024 History of Present illness Narrative PROGRESS NOTES Patient Name: Sav Raymundo SERVICE DATE: 07/21/2024 SERVICE TIME: 2:25 PM HPI: Mr. Raymundo is a 74 year old male who presents for Effusion.Has been emptying Plerax catheter daily.Has been seeing social work instructor at [facility].Pleural fluid analysis has been done MEDICATIONS: Current Outpatient Medications Medication Sig Dispense Refill potassium chloride ER (KLOR-CON M20) 20 mEq tablet Take 2 tablets by mouth two times a day. 360 tablet 0 torsemide (DEMADEX) 100 mg tablet Take 1 tablet by mouth once daily. 90 tablet 0 calcium szq-kfg-S4-Zn-electron microscopist-kian 250 mg-40 mg- 125 unit-3.75mg tab Take by mouth. pantoprazole DR (PROTONIX) 40 mg tablet Take 1 tablet by mouth two times a day. 180 tablet 0 diclofenac (VOLTAREN) 1 % topical gel amoxicillin (AMOXIL) 500 mg capsule allopurinol (ZYLOPRIM) 300 mg tablet Take 300 mg by mouth once daily. atorvastatin (LIPITOR) 10 mg tablet Take 1 tablet by mouth once daily. budesonide, enteric coated (ENTOCORT EC) 3 mg 24 hr capsule Take 3 mg by mouth once daily. ascorbic acid, vitamin C, (VITAMIN C) 500 mg tablet Take 1,000 mg by mouth once daily. multivit-min/ferrous fumarate (MULTI VITAMIN ORAL) Take by mouth. guaifenesin/dextromethorphan (MUCINEX DM ORAL) Take by mouth two times a day. loratadine (CLARITIN) 10 mg tablet Take 10 mg by mouth once daily. quiNINE 324 mg capsule Take 1 capsule by mouth two times a day. 60 capsule 2 erythromycin (ROMYCIN) 5 mg/gram (0.5 %) ophthalmic ointment Use 1 application in both eyes two times a day for 10 days. into affected eye(s). 3.5 g 0 No current facility-administered medications for this visit. REVIEW OF SYSTEMS GENERAL: Positive for malaise, no significant weight loss and fever HEENT: Negative for frequent or significant headaches, significant changes in vision or vision problems, significant ear problems or hearing loss, nasal discharge or nose bleeds and sore throat, difficulty swallowing, mouth lesions NECK: Negative for goiter, pain and significant neck swelling RESPIRATORY: Negative for cough, wheezing and shortness of breath CARDIOVASCULAR: Negative for chest pain, leg swelling and palpitations GASTROINTESTINAL: Negative for abdominal discomfort, blood in stools or black stools, and change in stool. GENITOURINARY: Negative for dysuria, frequency and incontinence MUSCULOSKELETAL: Negative for joint pain or swelling, back pain, and muscle pain. NEUROLOGIC: Negative for focal numbness or weakness, headaches and dizziness. SKIN: Negative for lesions, rash, and itching. PSYCHIATRIC: Negative for sleep disturbance, mood disorder and recent psychosocial stressors. HEMATOLOGIC/LYMPHATIC/IMMUNOLOGIC: Negative for prolonged bleeding, bruising easily, and swollen nodes. ENDOCRINE: Negative for cold or heat intolerance, polyuria, polydipsia and goiter. PHYSICAL EXAMINATION: BP 118/80 Pulse 75 Temp 98.6 Resp 16 Ht 6' 0 (1.83m) Wt 194 lb (88.0kg) SpO2 98% BMI 26.31 kg/(m^2). General appearance: Overweight, healthy, cooperative, in no acute distress, alert Skin: Skin color, texture, turgor normal. No rashes or lesions. Head: Normocephalic. No masses, lesions, tenderness or abnormalities Eyes: conjunctivae/corneas clear. PERRL, EOM's intact. Ears: External ears normal. Canals clear. TM's normal. Nose/Sinuses: Nares normal. Septum midline. Mucosa normal. No drainage or sinus tenderness. Oropharynx: Lips, mucosa, and tongue normal. Teeth and gums normal. Oropharynx normal. Neck: Neck supple, no adenopathy; thyroid symmetric, normal size Back: Back symmetric, no curvature. ROM normal. No CVA tenderness. Lungs: Percussion normal. Good diaphragmatic excursion. Lungs clear to auscultation. Heart: [place] normal. Precordium quiet. RRR. Normal HS with no murmurs.. Abdomen: Abdomen soft, non-tender. BS normal. No masses, organomegaly Extremities: Normal exam of the extremities, Extremities normal. No deformities, edema, or skin discoloration Musculoskeletal: Spine ROM normal. Muscular strength intact. Peripheral pulses: normal, capilliary refill <2secs, strong peripheral pulses Neuro: Gait normal. Reflexes normal and symmetric. Sensation grossly intact. ASSESSMENT/PLAN: 1. Pleural effusion - ICD9: 511.9, ICD10: J90 (primary diagnosis) - Continue drainage daily 2. Muscle cramps - ICD9: 729.82, ICD10: R25.2 - QUININE 324 MG CAPSULE start - Continue Ca/Mg Zinc 2 tabs bid 3. Anasarca - ICD9: 782.3, ICD10: R60.1 - BASIC METABOLIC PANEL 4. Hypomagnesemia - ICD9: 275.2, ICD10: E83.42 - MAGNESIUM 5. Lymphocytic colitis - ICD9: 558.9, ICD10: K52.832 - On Taper Entocort Jose Antonio Meyers MD SIGNATURE: Jose Antonio Meyers MD DATE: July 21, 2024 TIME: 2:25 PM documented in this encounter [facility] 07-20-2024 History of Present illness Narrative Images from the original note were not included. Respiratory [facility] Consultation CC: Persistent RIGHT pleural effusion Sav Raymundo is a 74 year old male sent by Dr. STEHPANE Douglas MD for evaluation of persistent RIGHT pleural effusion. My final recommendations will be communicated to the requesting health care provider by way of the shared medical record for internal providers or letter via the [employer] for external providers. Assessment and Plan 1. Panserositis with associated fluid collections of unclear etiology Pleuritis with persistent (currently) transudate effusion H/o pericardial effusion (08/15/2023) Ascites 2. Lymphocytic colitis 3. Chronic cough Plan: 1. US of RIGHT chest Small dependent largely anechoic effusion with few mobile septations. Post drainage small volume perihepatic ascites noted. 2. TPC aspirated with specimen sent for flow cytometry. 270 ml clear yellow serous fluid aspirated. TPC valve was noted to be broken and was replaced. 3. Agree with return to 100 mg dose of torsemide 4. Would like to drain TPC aggressively (daily) for the next few weeks and monitor output. Considering the paucity of symptoms would like to see if we can get the catheter removed with aggressive medical management If he achieves < 50 ml for three consecutive drains would hold for a week and see him back for CxR and US. If no notable effusion would consider removal of TPC. If TPC continues to drain or he re-accumulates after 1 weeks hold may revisit possibility of pleurodesis. Alternatively, intrapleural instillation of steroids could be considered but in the setting of transudate am less inclined to pursue. 5. Would consider reinitiating ICS a couple of weeks before cessation of systemic steroids in an effort to provide some durable control over respiratory symptoms. 6. Encouraged regular progressive physical activity. HPI: Mr. Sav Raymundo is a 74 y/o male with persistent RIGHT pleural effusion with TPC placed last November 2023 during VATS thoracoscopy with pleural biopsy and unsuccessful chemical/mechanical pleurodesis in November. Since the TPC was placed there has been consistent out put with aspiration of the TPC. This process all started about a two years ago with a non-specific cough that was nonproductive but disruptive symptom. While on plaquenil he started with diarrhea which prompted the colonoscopy with identification of lymphocytic colitis. Initially after the TPC was placed he was draining up to 700+ ml's three times a week. Over the interval months, he has been placed on both diuretics and steroids with reduction in his output. Previously he has given multiple inhalers (ICS) for his cough without improvement. On 05/29 - 110 and 06/04 - 75 ml his lowest outputs. His drainage interval was decreased from 3x per week to 2x per week with near concomitant decrease in his diuretic dose (50 mg). Unfortunately, his pleural fluid output increased back to the 250 range and the diuretic dose was increased back to 100 mg. He notes no associated dyspnea or exertional limitations. Only when the effusions were > 500 ml did he have some sense of limitation. 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 Excerpt from Dr Douglas 05/20/2024. Mr Raymundo is a 71 y/o, from the [facility], here for follow-up for pleural effusion. He is a complex case, and has been in generally good health until the last 1 year. He presented with chronic recurrent cough, and pleural effusion, that needed several thoracentesis. This process seems to be responsive to steroids. We do not have pleural effusion analysis (most of it was done in outside hospital). he was then referred for pleurodesis to thoracic surgery in [facility], which he underwent in November 2023. Though no pleural fluid analysis done, but pleural biopsy showed pleuritis. Post pleurodesis, he continued to have significant drainage, tunneled pleural catheter was placed. He was then hospitalized ( abdominal bloating ) -in [facility], and responded well to diuresis. He has been evaluated by rheumatology, and was empirically placed on Plaquenil, but extensive workup has been negative, so was taken off Plaquenil for the past few weeks. We have confirmed that previous autoimmune labs were drawn when off steroids. He was last seen in the pulmonary clinic in March -and our thought was this is likely rheumatologic process, given brisk response to steroids (both cough and pleural drainage decreases). Since then: -Coughing and effusion drainage has continued (350 to 500 mL every other day) -Rheumatologic assessment done, workup negative, transportation solutions manager has no evidence of any autoimmune disease -Off prednisone for the last 5 months -Off Plaquenil for the past 3 weeks -On diuretics, now on torsemide Interestingly, on further discussion, mostly with transportation solutions manager, we have uncovered that he has been having longstanding diarrhea at the same time. He underwent evaluation by GI, with endoscopy and colonoscopy. He was noted to have: -Lymphocytic colitis, started on budesonide, seems to be doing a bit better on that -Esophageal stenosis, hiatal hernia (as per patient he was dilated, though no documentation seen) Chest imaging (x-ray and CT scan), shows persistent effusion, very small groundglass opacity nodules). PAST MEDICAL HISTORY Diagnosis Date GERD (gastroesophageal reflux disease) History of basal cell cancer left shoulder Mixed hyperlipidemia Osteoarthritis of multiple joints Pleural effusion, right s/p Thoracentesis 10/01/23 = 520 cc, 625 cc PAST SURGICAL HISTORY Procedure Laterality Date ANESTH OPEN/SURG ARTHRS TOTAL KNEE ARTHROPLASTY Left 08/23/2014 ARTHROSCOPY KNEE DIAGNOSTIC W/WO SYNOVIAL BX SPX Left 2010 ORTHOPEDIC SURGERY HX Right wrist PAST SURGICAL HISTORY OF Left 11/2014 Shoulder -BASAL CELL CARCINOMA EXCISION THORACOSCOPY SURG W PLEURODESIS Right 11/20/2023 Pleural biopsy with mechanical/doxycycline pleurodesis with TPC insertion. TOTAL KNEE REPLACEMENT Right 06/25/2016 FAMILY HISTORY Problem Relation Age of Onset Heart Father Colon Cancer No Family History Social History Tobacco Use Smoking status: Never Smokeless tobacco: Never Vaping Use Vaping status: Never Used Substance Use Topics Alcohol use: Yes Comment: socially, no drink since 06/2023 Drug use: Never Current Outpatient Medications Medication Sig Dispense Refill potassium chloride ER (KLOR-CON M20) 20 mEq tablet Take 2 tablets by mouth two times a day. 360 tablet 0 torsemide (DEMADEX) 100 mg tablet Take 1 tablet by mouth once daily. 90 tablet 0 calcium lao-doa-V4-Zn-electron microscopist-kian 250 mg-40 mg- 125 unit-3.75mg tab Take by mouth. pantoprazole DR (PROTONIX) 40 mg tablet Take 1 tablet by mouth two times a day. 180 tablet 0 diclofenac (VOLTAREN) 1 % topical gel amoxicillin (AMOXIL) 500 mg capsule allopurinol (ZYLOPRIM) 300 mg tablet Take 300 mg by mouth once daily. atorvastatin (LIPITOR) 10 mg tablet Take 1 tablet by mouth once daily. budesonide, enteric coated (ENTOCORT EC) 3 mg 24 hr capsule Take 3 mg by mouth once daily. ascorbic acid, vitamin C, (VITAMIN C) 500 mg tablet Take 1,000 mg by mouth once daily. multivit-min/ferrous fumarate (MULTI VITAMIN ORAL) Take by mouth. guaifenesin/dextromethorphan (MUCINEX DM ORAL) Take by mouth two times a day. loratadine (CLARITIN) 10 mg tablet Take 10 mg by mouth once daily. quiNINE 324 mg capsule Take 1 capsule by mouth two times a day. 60 capsule 2 No current facility-administered medications for this visit. ALLERGIES Allergen Reactions Tramadol Mental Status Change REVIEW OF SYSTEMS See HPI. Gen: There are no fevers, chills, night sweats or weight loss. HEENT: No changes in hearing or vision, no nose bleeds or other nasal problems. Resp: Negative for cough, hemoptysis, wheezing, COPD, dyspnea or shortness of breath. He is not known to snore and has no daytime somnolence. CV: There is no exertional chest pain or palpations. Musc: There are no arthralgias or myalgias. GI/: No trouble moving bowels or bladder noted. No history of dysuria, frequency or incontinence. Heme: No inappropriate bleeding noted. Endo: Negative for cold or heat intolerance, polyuria or polydipsia. Skin: No new or bothersome lesions, rashes or itching. Neuro: The patient has no history of headaches, syncope, paralysis, seizures or tremors. Review of systems is otherwise negative. PHYSICAL EXAMINATION: BP 132/86 Pulse 89 Temp 97.2 Resp 16 SpO2 97% General appearance: Well appearing, alert, in no acute distress Ears/Nose/Mouth/Throat: Lips, oral mucosa, and tongue normal. Teeth and gums normal. Posterior oropharynx/palates normal without cobblestoning or erythema. Mallampati score of 3. Neck: Supple, midline trachea, thyroid nontender and non-enlarged. JVD not present at 30 degrees of recline. Lymphatic: No submental, cervical, or axillary adenopathy. Respiratory: There is no asymmetric DT, decreased tactile fremitus on the RIGHT. Vesicular breath sounds bilaterally, no wheezing, rhonchi or rales appreciated. No accessory muscle use. Cardiovascular: RRR without gallop, or rubs or murmur. No peripheral edema noted in the upper or lower extremities. Normal temperature of all 4 extremities. Abdomen/GI: Abdomen soft, non-tender, non-distended. No masses or organomegaly noted. No hepatojugular reflux. Musculoskeletal: No clubbing or cyanosis of fingers. Trace LE edema mid courtney. Skin:No petechiae, ecchymoses, rash noted. Neuro: Oriented X 3 with normal mood/affect. DATA: I personally reviewed the labs, PFTs and radiographs I re-reviewed his most recent chest radiographic image and report, dated 05/18/2024 and compared to multiple priors through 07/08/2023 . I agree with the following assessment with the following comment. There has been no radiographic pericardial effusion since the 07/2023 study. Waxing and waning pleural effusion/ascites noted . The radiologist notes; Slight decrease in the right pleural effusion. I reviewed his recent chest CT scan images and report, dated 03/17/2024 and compared to multiple priors through 08/15/2023 . I agree with the following assessment with the following comment. There has been no radiographic pericardial effusion since the 07/2023 study. Waxing and waning pleural effusion noted. Possible pleural thickening noted on most recent study. The radiologist notes; Limitations: None. Lines, tubes, and devices: None. Lung parenchyma and airways: Evaluation of lung parenchyma demonstrates scattered groundglass opacities in the posterior right upper lobe. This is new since previous exam. The left lung remains clear. No bronchiectasis or pneumothorax is identified. There is dependent/compressive right lower lobe atelectasis. Pleural space: A well-positioned right-sided chest tube is in place. A small to moderate size persistent right-sided pleural effusion is present. No left-sided pleural fluid is present. Lower neck, lymph nodes, and mediastinum: The imaged thyroid gland is normal. No lymphadenopathy in the supraclavicular, axillary, mediastinal, or hilar regions. Heart, pericardium, and thoracic vessels: The thoracic aorta and main pulmonary artery are normal in caliber. The cardiac chambers are normal in size. No coronary artery atherosclerotic calcifications are noted, although the study is not optimized for coronary assessment. No pericardial effusion or thickening. Bones and soft tissues: No destructive bone lesion. Chest wall is unremarkable. Upper abdomen: No abnormality in the imaged upper abdomen. Localizer images: No additional findings. IMPRESSION: 1. A few scattered groundglass opacities are present in the posterior right upper lobe suggestive of an infectious/inflammatory process. This is new since previous exam. 2. Well-positioned right-sided chest tube with a persistent small to moderate-sized pleural effusion. I reviewed his recent CT enterography scan images and report, dated 04/22/2024 and compared to priors CT abdomen on 12/20/2023. I agree with the following assessment with the following comment. There is notable perisplenic ascites on the 12/19 study. The radiologist notes; IMPRESSION: No active bowel inflammation. Small volume ascites and small right pleural effusion, both increased since 12/20/2023. . 07/20/2024 POCUS RIGHT CHEST Reason for examination: Persistent RIGHT pleural effusion. Technique: Sonography of RIGHT lung performed bilaterally in sitting position Right Lung: Lung sliding: Present Lung point: Not visualized Lung Pulse: Absent Pleural Effusion:RIGHT pleural effusion small Size: Small Location: Dependent only visualized posteriorly. Character: Predominantly anechoic with few subtle septations. Accessible: Yes Impression: Small free flowing anechoic pleural effusion that is successfully aspirated via TPC. Small volume perihepatic ascites noted. Images were recorded. PFT: Date FVC FEV1 FEV1/FVC TLC RV DLCO 03/17/2024 2.87/72 2.39/80 0.83 4.72/67 2.07/82 21.9/85 Spirometry indicates no obstruction. The reduced FVC could indicate restriction. Decrease in TLC indicates restriction. The diffusing capacity is normal. LABS: Glucose (mg/dL) Date Value 07/29/2024 141 Potassium (mmol/L) Date Value 07/29/2024 4.0 Sodium (mmol/L) Date Value 07/29/2024 139 Chloride (mmol/L) Date Value 07/29/2024 105 CO2 (mmol/L) Date Value 07/29/2024 27 Creatinine (mg/dL) Date Value 07/29/2024 1.25 BUN (mg/dL) Date Value 07/29/2024 27 Anion Gap (mmol/L) Date Value 07/29/2024 7 Calcium, Total (mg/dL) Date Value 07/29/2024 8.9 Protein, Total (g/dL) Date Value 07/20/2024 7.6 Albumin (g/dL) Date Value 07/20/2024 3.9 Bilirubin, Total (mg/dL) Date Value 05/18/2024 0.7 Alkaline Phosphatase (U/L) Date Value 05/18/2024 174 AST (U/L) Date Value 05/18/2024 28 ALT (U/L) Date Value 05/18/2024 22 CBC with diff: WBC 7.96 04/20/2024 RBC 3.93 04/20/2024 Hemoglobin 12.0 04/20/2024 Hematocrit 38.0 04/20/2024 MCV 96.7 04/20/2024 MCH 30.5 04/20/2024 MCHC 31.6 04/20/2024 RDW-CV 14.7 04/20/2024 Platelet Count 267 04/20/2024 MPV 11.1 04/20/2024 Neutrophils % 74.3 04/20/2024 Lymphocytes % 11.9 04/20/2024 Monocytes % 12.9 04/20/2024 Eosinophils % 0.0 04/20/2024 Basophils % 0.5 04/20/2024 Abs Neut 5.91 04/20/2024 Abs Culebra 1.03 04/20/2024 Abs Eosin <0.03 04/20/2024 Abs Baso 0.04 04/20/2024 04/28/2024 Colonoscopy/EGD A. Duodenum, biopsy: -Duodenal mucosa with preserved villous architecture. -No increase in intraepithelial lymphocytes. B. Stomach, biopsy: -Oxyntic mucosa with mild PPI effect. -Minimal chronic inactive gastritis and reactive change in antral mucosa. -Negative for intestinal metaplasia or dysplasia -No H. pylori on routine stain. C. Gastric polyp, biopsy: -Early/evolving fundic gland polyp. D. Esophagus, biopsy: -Squamous epithelium with no diagnostic abnormality. No intraepithelial eosinophils. -Separate fragment of gastric cardia-type mucosa with reactive change. -Negative for intestinal metaplasia or dysplasia. E. Small bowel, ileum, biopsy: -Ileal mucosa with no diagnostic abnormality. F. Random colon, biopsy: -Lymphocytic colitis, see comment. Diagnostic Comment: Comment F: This pattern of colitis is non-specific and can be associated with a number of etiologies. Although most cases remain idiopathic, the differential includes medication-related enteropathy (caused by such agents as NSAIDs, PPIs, histamine receptor antagonists, SSRIs or angiotensin receptor blockers, cephalosporins, carbamazepine, gold salts, ipilimumab etc.), resolving infections [both bacterial (such as C. Jejuni, E. Coli) and viral], and as a colonic manifestation of gluten-sensitive enteropathy among others. Correlation with the clinical, laboratory and colonoscopic findings should be of value in this differential. 6/5/32999 VATS Final Diagnosis: A. Right pleura, biopsy: Chronic pleuritis with mesothelial hyperplasia (see comment). B. Right pleura, biopsy: Acute organizing and chronic pleuritis (see comment). 08/28/2023 Thoracentesis Data Latest Reference Range & Units 09/04/2023 10/01/2023 05/18/24 12:52 06/22/24 10:30 Site, BF Pleural Cavity, Right Pleural Cavity, Right Pleural Cavity, Right Pleural Cavity, Right Color, BF Yellow Yellow Yellow Yellow Yellow Clarity, BF Clear Hazy Hazy Clear Clear Supernatant Color, BF Yellow Yellow Yellow Supernatant Clarity, BF Clear Clear Clear RBC, Body Fluid <2,000 /uL 7000 <2,000 <2,000 Total Nucleated Cells, BF <1,000 /uL 1307 443 408 Diff Total Body Fluid cells counted 100 100 Neut%, BF 0 - 1 % 5 14 (H) 6 (H) Lymph%, BF 18 - 36 % 39 80 (H) 80 (H) Culebra%, BF % 6 Macro%, BF 64 - 80 % 56 4 (L) 6 (L) Meso%, BF 0 - 2 % 1 Eosin%, BF % 0 2 Reac Lymph %, BF % See comment 1 BF Pathologist Interpretation Numerous mature polymorphous lymphocytes. If there is clinical concern for a lymphoproliferative disorder, please order flow cytometric analysis. LD,Body Fluid See Comment U/L 86 100 LD, Serum 206 Body Fluid Type (Albumin) Pleural Cavity, Right Albumin, Body Fluid See Comment g/dL 1.4 Body Fluid Type (Chol) Pleural Cavity, Right Cholesterol, Body Fluid See Comment mg/dL 30 Glucose, Body Fld See Comment mg/dL 119 113 106 112 Body Fluid Type (pH) Pleural Cavity, Right pH, Body Fluid 8.2 7.9 Protein, Body Fluid See Comment g/dL 3.7 3.7 2.2 2.6 Protein, Serum 21 6.6 Body Fluid Type (Triglyceride) 20 Pleural Cavity, Right Triglycerides, Body Fluid mg/dL 59 13 06/22/2024 Flow Cytometry: There is no immunophenotypic evidence of involvement by a lymphoproliferative disorder. Correlation with the clinical findings is suggested. F/u: 6 weeks.. Triston Riggs M.D. Staff, Interventional Pulmonology. Pulmonary, Allergy & Critical Care Medicine [facility] documented in this encounter [facility] 07-20-2024 Note [facility] 07-17-2024 Note HNO ID: [id number] Author: KATERINA CONTRERAS PA-C Service: ? Author Type: Physician Fruit Tester Type: Progress Notes Filed: 07/17/2024 14:02 Note Text: Orders for pleurX vacuum bottles signed and faxed back to [facility]. Katerina Contreras PA-C [facility] 07-17-2024 History of Present illness Narrative Orders for pleurX vacuum bottles signed and faxed back to [facility]. Katerina Contreras PA-C documented in this encounter [facility] 07-16-2024 Telephone encounter Note Called patient's and informed her that there isn't any indication in Dr. Riggs's office notes that request any lab work at this time. [facility] 07-16-2024 Miscellaneous Notes Called patient's and informed her that there isn't any indication in Dr. Riggs's office notes that request any lab work at this time. 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 Patient would like to confirm if blood labs will need to be drawn. If so, facility will need those orders Admin will follow up at [phone] documented in this encounter [facility] 07-16-2024 Telephone encounter Note Patient is a lab in [facility], [facility] and they only see orders for body fluid, which they are unable to do. Patient would like to confirm if blood labs will need to be drawn. If so, facility will need those orders Admin will follow up at [phone] [facility] 07-08-2024 Note [facility] 07-08-2024 History of Present illness Narrative Received fax from [employer] for signature for updated pleurX draining order to daily draining for 2 months. This was completed and faxed back to them. Katerina Contreras PA-C documented in this encounter [facility] 06-22-2024 Note [facility] 06-22-2024 History of Present illness Narrative Per request of Dr. Riggs, we plan on increasing his pleurX catheter draining to everyday. Updated orders sent to [facility] (supplies) and [facility] (faxed to [phone]). His home nurse is Beth, work cell [phone]. She is to call us if sudden cessation of drainage or 3 subsequent drains of less than 100 ml. Katerina Contreras PA-C documented in this encounter [facility] 06-22-2024 History and physical note Images from the original note were not included. [facility] CC: Persistent RIGHT pleural effusion Sav Raymundo is a 74 year old male sent by Dr. STEPHANE Douglas MD for evaluation of persistent RIGHT pleural effusion. My final recommendations will be communicated to the requesting health care provider by way of the shared medical record for internal providers or letter via the [employer] for external providers. Assessment and Plan 1. Panserositis with associated fluid collections of unclear etiology Pleuritis with persistent (currently) transudate effusion H/o pericardial effusion (08/15/2023) Ascites 2. Lymphocytic colitis 3. Chronic cough Plan: 1. US of RIGHT chest Small dependent largely anechoic effusion with few mobile septations. Post drainage small volume perihepatic ascites noted. 2. TPC aspirated with specimen sent for flow cytometry. 270 ml clear yellow serous fluid aspirated. TPC valve was noted to be broken and was replaced. 3. Agree with return to 100 mg dose of torsemide 4. Would like to drain TPC aggressively (daily) for the next few weeks and monitor output. Considering the paucity of symptoms would like to see if we can get the catheter removed with aggressive medical management If he achieves < 50 ml for three consecutive drains would hold for a week and see him back for CxR and US. If no notable effusion would consider removal of TPC. If TPC continues to drain or he re-accumulates after 1 weeks hold may revisit possibility of pleurodesis. Alternatively, intrapleural instillation of steroids could be considered but in the setting of transudate am less inclined to pursue. 5. Would consider reinitiating ICS a couple of weeks before cessation of systemic steroids in an effort to provide some durable control over respiratory symptoms. 6. Encouraged regular progressive physical activity. HPI: Mr. Sav Raymundo is a 74 y/o male with persistent RIGHT pleural effusion with TPC placed last November 2023 during [facility] thoracoscopy with pleural biopsy and unsuccessful chemical/mechanical pleurodesis in November. Since the TPC was placed there has been consistent out put with aspiration of the TPC. This process all started about a two years ago with a non-specific cough that was nonproductive but disruptive symptom. While on plaquenil he started with diarrhea which prompted the colonoscopy with identification of lymphocytic colitis. Initially after the TPC was placed he was draining up to 700+ ml's three times a week. Over the interval months, he has been placed on both diuretics and steroids with reduction in his output. Previously he has given multiple inhalers (ICS) for his cough without improvement. On 05/29 - 110 and 06/04 - 75 ml his lowest outputs. His drainage interval was decreased from 3x per week to 2x per week with near concomitant decrease in his diuretic dose (50 mg). Unfortunately, his pleural fluid output increased back to the 250 range and the diuretic dose was increased back to 100 mg. He notes no associated dyspnea or exertional limitations. Only when the effusions were > 500 ml did he have some sense of limitation. 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 Excerpt from Dr Douglas 05/20/2024. Mr Raymundo is a 71 y/o, from the [place] area, here for follow-up for pleural effusion. He is a complex case, and has been in generally good health until the last 1 year. He presented with chronic recurrent cough, and pleural effusion, that needed several thoracentesis. This process seems to be responsive to steroids. We do not have pleural effusion analysis (most of it was done in outside hospital). he was then referred for pleurodesis to thoracic surgery in [facility], which he underwent in November 2023. Though no pleural fluid analysis done, but pleural biopsy showed pleuritis. Post pleurodesis, he continued to have significant drainage, tunneled pleural catheter was placed. He was then hospitalized ( abdominal bloating ) -in [facility], and responded well to diuresis. He has been evaluated by rheumatology, and was empirically placed on Plaquenil, but extensive workup has been negative, so was taken off Plaquenil for the past few weeks. We have confirmed that previous autoimmune labs were drawn when off steroids. He was last seen in the pulmonary clinic in March -and our thought was this is likely rheumatologic process, given brisk response to steroids (both cough and pleural drainage decreases). Since then: -Coughing and effusion drainage has continued (350 to 500 mL every other day) -Rheumatologic assessment done, workup negative, transportation solutions manager has no evidence of any autoimmune disease -Off prednisone for the last 5 months -Off Plaquenil for the past 3 weeks -On diuretics, now on torsemide Interestingly, on further discussion, mostly with transportation solutions manager, we have uncovered that he has been having longstanding diarrhea at the same time. He underwent evaluation by GI, with endoscopy and colonoscopy. He was noted to have: -Lymphocytic colitis, started on budesonide, seems to be doing a bit better on that -Esophageal stenosis, hiatal hernia (as per patient he was dilated, though no documentation seen) Chest imaging (x-ray and CT scan), shows persistent effusion, very small groundglass opacity nodules). PAST MEDICAL HISTORY Diagnosis Date GERD (gastroesophageal reflux disease) History of basal cell cancer left shoulder Mixed hyperlipidemia Osteoarthritis of multiple joints Pleural effusion, right s/p Thoracentesis 10/01/23 = 520 cc, 625 cc PAST SURGICAL HISTORY Procedure Laterality Date ANESTH OPEN/SURG ARTHRS TOTAL KNEE ARTHROPLASTY Left 08/23/2014 ARTHROSCOPY KNEE DIAGNOSTIC W/WO SYNOVIAL BX SPX Left 2010 ORTHOPEDIC SURGERY HX Right wrist PAST SURGICAL HISTORY OF Left 11/2014 Shoulder -BASAL CELL CARCINOMA EXCISION TOTAL KNEE REPLACEMENT Right 06/25/2016 FAMILY HISTORY Problem Relation Age of Onset Heart Father Colon Cancer No Family History Social History Tobacco Use Smoking status: Never Smokeless tobacco: Never Vaping Use Vaping status: Never Used Substance Use Topics Alcohol use: Yes Comment: socially, no drink since 06/2023 Drug use: Never Current Outpatient Medications Medication Sig Dispense Refill avuvwl-zyicscqd-asiqgue (CREON) 36,000-114,000- 180,000 unit delayed release capsule Take 2 capsules by mouth three times a day with meals. 200 capsule 1 potassium chloride ER (KLOR-CON M20) 20 mEq tablet Take 2 tablets by mouth two times a day. 360 tablet 0 torsemide (DEMADEX) 100 mg tablet Take 1 tablet by mouth once daily. 90 tablet 0 calcium jih-jbe-C2-Zn-electron microscopist-kian 250 mg-40 mg- 125 unit-3.75mg tab Take by mouth. budesonide, enteric coated (ENTOCORT EC) 3 mg 24 hr capsule Take 3 capsules by mouth once daily for 60 days, THEN 2 capsules once daily for 15 days, THEN 1 capsule once daily for 7 days. [address] (PROTONIX) 40 mg tablet Take 1 tablet by mouth two times a day. 180 tablet 0 diclofenac (VOLTAREN) 1 % topical gel amoxicillin (AMOXIL) 500 mg capsule predniSONE (DELTASONE) 10 mg tablet Take 1 tablet by mouth as directed. Prednisone 10 mg 2 tabs tid x 5 days,2 tabs bid x 5 days,3 tabs daily x 5 days,2 tabs daily x 5 days,1 tab daily x 5 days,1/2 daily x 4 days and stip 82 tablet 0 allopurinol (ZYLOPRIM) 300 mg tablet Take 300 mg by mouth once daily. atorvastatin (LIPITOR) 10 mg tablet Take 1 tablet by mouth once daily. No current facility-administered medications for this visit. ALLERGIES Allergen Reactions Tramadol Mental Status Change REVIEW OF SYSTEMS See HPI. Gen: There are no fevers, chills, night sweats or weight loss. HEENT: No changes in hearing or vision, no nose bleeds or other nasal problems. Resp: Negative for cough, hemoptysis, wheezing, COPD, dyspnea or shortness of breath. He is not known to snore and has no daytime somnolence. CV: There is no exertional chest pain or palpations. Musc: There are no arthralgias or myalgias. GI/: No trouble moving bowels or bladder noted. No history of dysuria, frequency or incontinence. Heme: No inappropriate bleeding noted. Endo: Negative for cold or heat intolerance, polyuria or polydipsia. Skin: No new or bothersome lesions, rashes or itching. Neuro: The patient has no history of headaches, syncope, paralysis, seizures or tremors. Review of systems is otherwise negative. PHYSICAL EXAMINATION: BP 144/91 Pulse 91 Temp 97 Resp 16 SpO2 98% General appearance: Well appearing, alert, in no acute distress Ears/Nose/Mouth/Throat: Lips, oral mucosa, and tongue normal. Teeth and gums normal. Posterior oropharynx/palates normal without cobblestoning or erythema. Mallampati score of 3. Neck: Supple, midline trachea, thyroid nontender and non-enlarged. JVD not present at 30 degrees of recline. Lymphatic: No submental, cervical, or axillary adenopathy. Respiratory: There is no asymmetric DT, decreased tactile fremitus on the RIGHT. Vesicular breath sounds bilaterally, no wheezing, rhonchi or rales appreciated. No accessory muscle use. Cardiovascular: RRR without gallop, or rubs or murmur. No peripheral edema noted in the upper or lower extremities. Normal temperature of all 4 extremities. Abdomen/GI: Abdomen soft, non-tender, non-distended. No masses or organomegaly noted. No hepatojugular reflux. Musculoskeletal: No clubbing or cyanosis of fingers. Trace LE edema mid courtney. Skin:No petechiae, ecchymoses, rash noted. Neuro: Oriented X 3 with normal mood/affect. DATA: I personally reviewed the labs, PFTs and radiographs I reviewed his most recent chest radiographic image and report, dated 05/18/2024 and compared to multiple priors through 07/08/2023 . I agree with the following assessment with the following comment. There has been no radiographic pericardial effusion since the 07/2023 study. Waxing and waning pleural effusion/ascites noted . The radiologist notes; Slight decrease in the right pleural effusion. I reviewed his recent chest CT scan images and report, dated 03/17/2024 and compared to multiple priors through 08/15/2023 . I agree with the following assessment with the following comment. There has been no radiographic pericardial effusion since the 07/2023 study. Waxing and waning pleural effusion noted. Possible pleural thickening noted on most recent study. The radiologist notes; Limitations: None. Lines, tubes, and devices: None. Lung parenchyma and airways: Evaluation of lung parenchyma demonstrates scattered groundglass opacities in the posterior right upper lobe. This is new since previous exam. The left lung remains clear. No bronchiectasis or pneumothorax is identified. There is dependent/compressive right lower lobe atelectasis. Pleural space: A well-positioned right-sided chest tube is in place. A small to moderate size persistent right-sided pleural effusion is present. No left-sided pleural fluid is present. Lower neck, lymph nodes, and mediastinum: The imaged thyroid gland is normal. No lymphadenopathy in the supraclavicular, axillary, mediastinal, or hilar regions. Heart, pericardium, and thoracic vessels: The thoracic aorta and main pulmonary artery are normal in caliber. The cardiac chambers are normal in size. No coronary artery atherosclerotic calcifications are noted, although the study is not optimized for coronary assessment. No pericardial effusion or thickening. Bones and soft tissues: No destructive bone lesion. Chest wall is unremarkable. Upper abdomen: No abnormality in the imaged upper abdomen. Localizer images: No additional findings. IMPRESSION: 1. A few scattered groundglass opacities are present in the posterior right upper lobe suggestive of an infectious/inflammatory process. This is new since previous exam. 2. Well-positioned right-sided chest tube with a persistent small to moderate-sized pleural effusion. I reviewed his recent CT enterography scan images and report, dated 04/22/2024 and compared to priors CT abdomen on 12/20/2023. I agree with the following assessment with the following comment. There is notable perisplenic ascites on the 12/19 study. The radiologist notes; IMPRESSION: No active bowel inflammation. Small volume ascites and small right pleural effusion, both increased since 12/20/2023. . 06/22/2024 POCUS RIGHT CHEST Reason for examination: Persistent RIGHT pleural effusion. Technique: Sonography of RIGHT lung performed bilaterally in sitting position Right Lung: Aeration Pattern: Focus of atelectatic lung adjacent to B-lines extending through aerated lung. Lung sliding: Present Lung point: Not visualized Lung Pulse: Absent Pleural Effusion:RIGHT pleural effusion Size: Small Location: Dependent Character: Predominantly anechoic with few subtle septations. Accessible: Yes Comments: Repeat exam after aspiration of TPC with complete evacuation of the pleural effusion but small volume perihepatic ascites clearly visualized. Impression: Small free flowing anechoic pleural effusion that is successfully aspirated via TPC. Small volume perihepatic ascites noted. Images were recorded. PFT: Date FVC FEV1 FEV1/FVC TLC RV DLCO 03/17/2024 2.87/72 2.39/80 0.83 4.72/67 2.07/82 21.9/85 Spirometry indicates no obstruction. The reduced FVC could indicate restriction. Decrease in TLC indicates restriction. The diffusing capacity is normal. LABS: Glucose (mg/dL) Date Value 05/29/2024 158 Potassium (mmol/L) Date Value 05/29/2024 4.1 Sodium (mmol/L) Date Value 05/29/2024 142 Chloride (mmol/L) Date Value 05/29/2024 100 CO2 (mmol/L) Date Value 05/29/2024 29 Creatinine (mg/dL) Date Value 05/29/2024 1.19 BUN (mg/dL) Date Value 05/29/2024 28 Anion Gap (mmol/L) Date Value 05/29/2024 13 Calcium, Total (mg/dL) Date Value 05/29/2024 9.3 Protein, Total (g/dL) Date Value 05/18/2024 6.6 Albumin (g/dL) Date Value 05/18/2024 3.8 Bilirubin, Total (mg/dL) Date Value 05/18/2024 0.7 Alkaline Phosphatase (U/L) Date Value 05/18/2024 174 AST (U/L) Date Value 05/18/2024 28 ALT (U/L) Date Value 05/18/2024 22 CBC with diff: WBC 7.96 04/20/2024 RBC 3.93 04/20/2024 Hemoglobin 12.0 04/20/2024 Hematocrit 38.0 04/20/2024 MCV 96.7 04/20/2024 MCH 30.5 04/20/2024 MCHC 31.6 04/20/2024 RDW-CV 14.7 04/20/2024 Platelet Count 267 04/20/2024 MPV 11.1 04/20/2024 Neutrophils % 74.3 04/20/2024 Lymphocytes % 11.9 04/20/2024 Monocytes % 12.9 04/20/2024 Eosinophils % 0.0 04/20/2024 Basophils % 0.5 04/20/2024 Abs Neut 5.91 04/20/2024 Abs [place] 1.03 04/20/2024 Abs Eosin <0.03 04/20/2024 Abs Baso 0.04 04/20/2024 04/28/2024 Colonoscopy/EGD A. Duodenum, biopsy: -Duodenal mucosa with preserved villous architecture. -No increase in intraepithelial lymphocytes. B. Stomach, biopsy: -Oxyntic mucosa with mild PPI effect. -Minimal chronic inactive gastritis and reactive change in antral mucosa. -Negative for intestinal metaplasia or dysplasia -No H. pylori on routine stain. C. Gastric polyp, biopsy: -Early/evolving fundic gland polyp. D. Esophagus, biopsy: -Squamous epithelium with no diagnostic abnormality. No intraepithelial eosinophils. -Separate fragment of gastric cardia-type mucosa with reactive change. -Negative for intestinal metaplasia or dysplasia. E. Small bowel, ileum, biopsy: -Ileal mucosa with no diagnostic abnormality. F. Random colon, biopsy: -Lymphocytic colitis, see comment. Diagnostic Comment: Comment F: This pattern of colitis is non-specific and can be associated with a number of etiologies. Although most cases remain idiopathic, the differential includes medication-related enteropathy (caused by such agents as NSAIDs, PPIs, histamine receptor antagonists, SSRIs or angiotensin receptor blockers, cephalosporins, carbamazepine, gold salts, ipilimumab etc.), resolving infections [both bacterial (such as C. Jejuni, E. Coli) and viral], and as a colonic manifestation of gluten-sensitive enteropathy among others. Correlation with the clinical, laboratory and colonoscopic findings should be of value in this differential. [facility] Final Diagnosis: A. Right pleura, biopsy: Chronic pleuritis with mesothelial hyperplasia (see comment). B. Right pleura, biopsy: Acute organizing and chronic pleuritis (see comment). 08/28/2023 Thoracentesis Data Latest Reference Range & Units 09/04/2023 10/01/2023 05/18/24 12:52 Site, BF Pleural Cavity, Right Pleural Cavity, Right Pleural Cavity, Right Color, BF Yellow Yellow Yellow Yellow Clarity, BF Clear Hazy Hazy Clear Supernatant Clarity, BF Clear Clear RBC, Body Fluid <2,000 /uL 7000 <2,000 Total Nucleated Cells, BF <1,000 /uL 1307 443 Diff Total Body Fluid cells counted 100 Neut%, BF 0 - 1 % 5 14 (H) Lymph%, BF 18 - 36 % 39 80 (H) Macro%, BF 64 - 80 % 56 4 (L) Eosin%, BF % 0 2 Reac Lymph %, BF See comment BF Pathologist Interpretation Numerous mature polymorphous lymphocytes. If there is clinical concern for a lymphoproliferative disorder, please order flow cytometric analysis. LD,Body Fluid See Comment U/L 86 LD, Serum 209 Body Fluid Type (Albumin) Pleural Cavity, Right Albumin, Body Fluid See Comment g/dL 1.4 Body Fluid Type (Chol) Pleural Cavity, Right Cholesterol, Body Fluid See Comment mg/dL 30 Glucose, Body Fld See Comment mg/dL 119 113 106 Body Fluid Type (pH) Pleural Cavity, Right Pleural Cavity, Right pH, Body Fluid 8.2 7.9 Protein, Body Fluid See Comment g/dL 3.7 3.7 2.2 Total Protein Serum 6.6 Body Fluid Type (Triglyceride) Pleural Cavity, Right Pleural Cavity, Right Triglycerides, Body Fluid mg/dL 21 13 Amylase, Body Fluid Units.L 20 Cholesterol Mg/dL 59 Fluid to serum ratios of LDH and TP are consistent with transudate. F/u: 4 - 6 weeks.. Triston Riggs M.D. Staff, Interventional Pulmonology. Pulmonary, Allergy & Critical Care Medicine [facility] Work Phone: 06-22-2024 History and physical note Images from the original note were not included. Respiratory [facility] CC: Persistent RIGHT pleural effusion Sav Raymundo is a 74 year old male sent by Dr. STEPHANE Douglas MD for evaluation of persistent RIGHT pleural effusion. My final recommendations will be communicated to the requesting health care provider by way of the shared medical record for internal providers or letter via the [employer] for external providers. Assessment and Plan 1. Panserositis with associated fluid collections of unclear etiology Pleuritis with persistent (currently) transudate effusion H/o pericardial effusion (08/15/2023) Ascites 2. Lymphocytic colitis 3. Chronic cough Plan: 1. US of RIGHT chest Small dependent largely anechoic effusion with few mobile septations. Post drainage small volume perihepatic ascites noted. 2. TPC aspirated with specimen sent for flow cytometry. 270 ml clear yellow serous fluid aspirated. TPC valve was noted to be broken and was replaced. 3. Agree with return to 100 mg dose of torsemide 4. Would like to drain TPC aggressively (daily) for the next few weeks and monitor output. Considering the paucity of symptoms would like to see if we can get the catheter removed with aggressive medical management If he achieves < 50 ml for three consecutive drains would hold for a week and see him back for CxR and US. If no notable effusion would consider removal of TPC. If TPC continues to drain or he re-accumulates after 1 weeks hold may revisit possibility of pleurodesis. Alternatively, intrapleural instillation of steroids could be considered but in the setting of transudate am less inclined to pursue. 5. Would consider reinitiating ICS a couple of weeks before cessation of systemic steroids in an effort to provide some durable control over respiratory symptoms. 6. Encouraged regular progressive physical activity. HPI: Mr. Sav Raymundo is a 74 y/o male with persistent RIGHT pleural effusion with TPC placed last November 2023 during [facility] thoracoscopy with pleural biopsy and unsuccessful chemical/mechanical pleurodesis in November. Since the TPC was placed there has been consistent out put with aspiration of the TPC. This process all started about a two years ago with a non-specific cough that was nonproductive but disruptive symptom. While on plaquenil he started with diarrhea which prompted the colonoscopy with identification of lymphocytic colitis. Initially after the TPC was placed he was draining up to 700+ ml's three times a week. Over the interval months, he has been placed on both diuretics and steroids with reduction in his output. Previously he has given multiple inhalers (ICS) for his cough without improvement. On 05/29 - 110 and 06/04 - 75 ml his lowest outputs. His drainage interval was decreased from 3x per week to 2x per week with near concomitant decrease in his diuretic dose (50 mg). Unfortunately, his pleural fluid output increased back to the 250 range and the diuretic dose was increased back to 100 mg. He notes no associated dyspnea or exertional limitations. Only when the effusions were > 500 ml did he have some sense of limitation. 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 Excerpt from Dr Douglas 05/20/2024. Mr Raymundo is a 71 y/o, from the [facility], here for follow-up for pleural effusion. He is a complex case, and has been in generally good health until the last 1 year. He presented with chronic recurrent cough, and pleural effusion, that needed several thoracentesis. This process seems to be responsive to steroids. We do not have pleural effusion analysis (most of it was done in outside hospital). he was then referred for pleurodesis to thoracic surgery in [facility], which he underwent in November 2023. Though no pleural fluid analysis done, but pleural biopsy showed pleuritis. Post pleurodesis, he continued to have significant drainage, tunneled pleural catheter was placed. He was then hospitalized ( abdominal bloating ) -in [facility], and responded well to diuresis. He has been evaluated by rheumatology, and was empirically placed on Plaquenil, but extensive workup has been negative, so was taken off Plaquenil for the past few weeks. We have confirmed that previous autoimmune labs were drawn when off steroids. He was last seen in the pulmonary clinic in March -and our thought was this is likely rheumatologic process, given brisk response to steroids (both cough and pleural drainage decreases). Since then: -Coughing and effusion drainage has continued (350 to 500 mL every other day) -Rheumatologic assessment done, workup negative, transportation solutions manager has no evidence of any autoimmune disease -Off prednisone for the last 5 months -Off Plaquenil for the past 3 weeks -On diuretics, now on torsemide Interestingly, on further discussion, mostly with transportation solutions manager, we have uncovered that he has been having longstanding diarrhea at the same time. He underwent evaluation by GI, with endoscopy and colonoscopy. He was noted to have: -Lymphocytic colitis, started on budesonide, seems to be doing a bit better on that -Esophageal stenosis, hiatal hernia (as per patient he was dilated, though no documentation seen) Chest imaging (x-ray and CT scan), shows persistent effusion, very small groundglass opacity nodules). PAST MEDICAL HISTORY Diagnosis Date GERD (gastroesophageal reflux disease) History of basal cell cancer left shoulder Mixed hyperlipidemia Osteoarthritis of multiple joints Pleural effusion, right s/p Thoracentesis 10/01/23 = 520 cc, 08/201924 625 cc PAST SURGICAL HISTORY Procedure Laterality Date ANESTH OPEN/SURG ARTHRS TOTAL KNEE ARTHROPLASTY Left 08/23/2014 ARTHROSCOPY KNEE DIAGNOSTIC W/WO SYNOVIAL BX SPX Left 2010 ORTHOPEDIC SURGERY HX Right wrist PAST SURGICAL HISTORY OF Left 11/2014 Shoulder -BASAL CELL CARCINOMA EXCISION TOTAL KNEE REPLACEMENT Right 06/25/2016 FAMILY HISTORY Problem Relation Age of Onset Heart Father Colon Cancer No Family History Social History Tobacco Use Smoking status: Never Smokeless tobacco: Never Vaping Use Vaping status: Never Used Substance Use Topics Alcohol use: Yes Comment: socially, no drink since 06/2023 Drug use: Never Current Outpatient Medications Medication Sig Dispense Refill wtfsfi-chjwozas-nxnuulk (CREON) 36,000-114,000- 180,000 unit delayed release capsule Take 2 capsules by mouth three times a day with meals. 200 capsule 1 potassium chloride ER (KLOR-CON M20) 20 mEq tablet Take 2 tablets by mouth two times a day. 360 tablet 0 torsemide (DEMADEX) 100 mg tablet Take 1 tablet by mouth once daily. 90 tablet 0 calcium mqq-hvt-V2-Zn-electron microscopist-kian 250 mg-40 mg- 125 unit-3.75mg tab Take by mouth. budesonide, enteric coated (ENTOCORT EC) 3 mg 24 hr capsule Take 3 capsules by mouth once daily for 60 days, THEN 2 capsules once daily for 15 days, THEN 1 capsule once daily for 7 days. [address] (PROTONIX) 40 mg tablet Take 1 tablet by mouth two times a day. 180 tablet 0 diclofenac (VOLTAREN) 1 % topical gel amoxicillin (AMOXIL) 500 mg capsule predniSONE (DELTASONE) 10 mg tablet Take 1 tablet by mouth as directed. Prednisone 10 mg 2 tabs tid x 5 days,2 tabs bid x 5 days,3 tabs daily x 5 days,2 tabs daily x 5 days,1 tab daily x 5 days,1/2 daily x 4 days and stip 82 tablet 0 allopurinol (ZYLOPRIM) 300 mg tablet Take 300 mg by mouth once daily. atorvastatin (LIPITOR) 10 mg tablet Take 1 tablet by mouth once daily. No current facility-administered medications for this visit. ALLERGIES Allergen Reactions Tramadol Mental Status Change REVIEW OF SYSTEMS See HPI. Gen: There are no fevers, chills, night sweats or weight loss. HEENT: No changes in hearing or vision, no nose bleeds or other nasal problems. Resp: Negative for cough, hemoptysis, wheezing, COPD, dyspnea or shortness of breath. He is not known to snore and has no daytime somnolence. CV: There is no exertional chest pain or palpations. Musc: There are no arthralgias or myalgias. GI/: No trouble moving bowels or bladder noted. No history of dysuria, frequency or incontinence. Heme: No inappropriate bleeding noted. Endo: Negative for cold or heat intolerance, polyuria or polydipsia. Skin: No new or bothersome lesions, rashes or itching. Neuro: The patient has no history of headaches, syncope, paralysis, seizures or tremors. Review of systems is otherwise negative. PHYSICAL EXAMINATION: BP 144/91 Pulse 91 Temp 97 Resp 16 SpO2 98% General appearance: Well appearing, alert, in no acute distress Ears/Nose/Mouth/Throat: Lips, oral mucosa, and tongue normal. Teeth and gums normal. Posterior oropharynx/palates normal without cobblestoning or erythema. Mallampati score of 3. Neck: Supple, midline trachea, thyroid nontender and non-enlarged. JVD not present at 30 degrees of recline. Lymphatic: No submental, cervical, or axillary adenopathy. Respiratory: There is no asymmetric DT, decreased tactile fremitus on the RIGHT. Vesicular breath sounds bilaterally, no wheezing, rhonchi or rales appreciated. No accessory muscle use. Cardiovascular: RRR without gallop, or rubs or murmur. No peripheral edema noted in the upper or lower extremities. Normal temperature of all 4 extremities. Abdomen/GI: Abdomen soft, non-tender, non-distended. No masses or organomegaly noted. No hepatojugular reflux. Musculoskeletal: No clubbing or cyanosis of fingers. Trace LE edema mid courtney. Skin:No petechiae, ecchymoses, rash noted. Neuro: Oriented X 3 with normal mood/affect. DATA: I personally reviewed the labs, PFTs and radiographs I reviewed his most recent chest radiographic image and report, dated 05/18/2024 and compared to multiple priors through 07/08/2023 . I agree with the following assessment with the following comment. There has been no radiographic pericardial effusion since the 07/2023 study. Waxing and waning pleural effusion/ascites noted . The radiologist notes; Slight decrease in the right pleural effusion. I reviewed his recent chest CT scan images and report, dated 03/17/2024 and compared to multiple priors through 08/15/2023 . I agree with the following assessment with the following comment. There has been no radiographic pericardial effusion since the 07/2023 study. Waxing and waning pleural effusion noted. Possible pleural thickening noted on most recent study. The radiologist notes; Limitations: None. Lines, tubes, and devices: None. Lung parenchyma and airways: Evaluation of lung parenchyma demonstrates scattered groundglass opacities in the posterior right upper lobe. This is new since previous exam. The left lung remains clear. No bronchiectasis or pneumothorax is identified. There is dependent/compressive right lower lobe atelectasis. Pleural space: A well-positioned right-sided chest tube is in place. A small to moderate size persistent right-sided pleural effusion is present. No left-sided pleural fluid is present. Lower neck, lymph nodes, and mediastinum: The imaged thyroid gland is normal. No lymphadenopathy in the supraclavicular, axillary, mediastinal, or hilar regions. Heart, pericardium, and thoracic vessels: The thoracic aorta and main pulmonary artery are normal in caliber. The cardiac chambers are normal in size. No coronary artery atherosclerotic calcifications are noted, although the study is not optimized for coronary assessment. No pericardial effusion or thickening. Bones and soft tissues: No destructive bone lesion. Chest wall is unremarkable. Upper abdomen: No abnormality in the imaged upper abdomen. Localizer images: No additional findings. IMPRESSION: 1. A few scattered groundglass opacities are present in the posterior right upper lobe suggestive of an infectious/inflammatory process. This is new since previous exam. 2. Well-positioned right-sided chest tube with a persistent small to moderate-sized pleural effusion. I reviewed his recent CT enterography scan images and report, dated 04/22/2024 and compared to priors CT abdomen on 12/20/2023. I agree with the following assessment with the following comment. There is notable perisplenic ascites on the 12/19 study. The radiologist notes; IMPRESSION: No active bowel inflammation. Small volume ascites and small right pleural effusion, both increased since 12/20/2023. . 06/22/2024 POCUS RIGHT CHEST Reason for examination: Persistent RIGHT pleural effusion. Technique: Sonography of RIGHT lung performed bilaterally in sitting position Right Lung: Aeration Pattern: Focus of atelectatic lung adjacent to B-lines extending through aerated lung. Lung sliding: Present Lung point: Not visualized Lung Pulse: Absent Pleural Effusion:RIGHT pleural effusion Size: Small Location: Dependent Character: Predominantly anechoic with few subtle septations. Accessible: Yes Comments: Repeat exam after aspiration of TPC with complete evacuation of the pleural effusion but small volume perihepatic ascites clearly visualized. Impression: Small free flowing anechoic pleural effusion that is successfully aspirated via TPC. Small volume perihepatic ascites noted. Images were recorded. PFT: Date FVC FEV1 FEV1/FVC TLC RV DLCO 03/17/2024 2.87/72 2.39/80 0.83 4.72/67 2.07/82 21.9/85 Spirometry indicates no obstruction. The reduced FVC could indicate restriction. Decrease in TLC indicates restriction. The diffusing capacity is normal. LABS: Glucose (mg/dL) Date Value 05/29/2024 158 Potassium (mmol/L) Date Value 05/29/2024 4.1 Sodium (mmol/L) Date Value 05/29/2024 142 Chloride (mmol/L) Date Value 05/29/2024 100 CO2 (mmol/L) Date Value 05/29/2024 29 Creatinine (mg/dL) Date Value 05/29/2024 1.19 BUN (mg/dL) Date Value 05/29/2024 28 Anion Gap (mmol/L) Date Value 05/29/2024 13 Calcium, Total (mg/dL) Date Value 05/29/2024 9.3 Protein, Total (g/dL) Date Value 05/18/2024 6.6 Albumin (g/dL) Date Value 05/18/2024 3.8 Bilirubin, Total (mg/dL) Date Value 05/18/2024 0.7 Alkaline Phosphatase (U/L) Date Value 05/18/2024 174 AST (U/L) Date Value 05/18/2024 28 ALT (U/L) Date Value 05/18/2024 22 CBC with diff: WBC 7.96 04/20/2024 RBC 3.93 04/20/2024 Hemoglobin 12.0 04/20/2024 Hematocrit 38.0 04/20/2024 MCV 96.7 04/20/2024 MCH 30.5 04/20/2024 MCHC 31.6 04/20/2024 RDW-CV 14.7 04/20/2024 Platelet Count 267 04/20/2024 MPV 11.1 04/20/2024 Neutrophils % 74.3 04/20/2024 Lymphocytes % 11.9 04/20/2024 Monocytes % 12.9 04/20/2024 Eosinophils % 0.0 04/20/2024 Basophils % 0.5 04/20/2024 Abs Neut 5.91 04/20/2024 Abs [place] 1.03 04/20/2024 Abs Eosin <0.03 04/20/2024 Abs Baso 0.04 04/20/2024 04/28/2024 Colonoscopy/EGD A. Duodenum, biopsy: -Duodenal mucosa with preserved villous architecture. -No increase in intraepithelial lymphocytes. B. Stomach, biopsy: -Oxyntic mucosa with mild PPI effect. -Minimal chronic inactive gastritis and reactive change in antral mucosa. -Negative for intestinal metaplasia or dysplasia -No H. pylori on routine stain. C. Gastric polyp, biopsy: -Early/evolving fundic gland polyp. D. Esophagus, biopsy: -Squamous epithelium with no diagnostic abnormality. No intraepithelial eosinophils. -Separate fragment of gastric cardia-type mucosa with reactive change. -Negative for intestinal metaplasia or dysplasia. E. Small bowel, ileum, biopsy: -Ileal mucosa with no diagnostic abnormality. F. Random colon, biopsy: -Lymphocytic colitis, see comment. Diagnostic Comment: Comment F: This pattern of colitis is non-specific and can be associated with a number of etiologies. Although most cases remain idiopathic, the differential includes medication-related enteropathy (caused by such agents as NSAIDs, PPIs, histamine receptor antagonists, SSRIs or angiotensin receptor blockers, cephalosporins, carbamazepine, gold salts, ipilimumab etc.), resolving infections [both bacterial (such as C. Jejuni, E. Coli) and viral], and as a colonic manifestation of gluten-sensitive enteropathy among others. Correlation with the clinical, laboratory and colonoscopic findings should be of value in this differential. VATS Final Diagnosis: A. Right pleura, biopsy: Chronic pleuritis with mesothelial hyperplasia (see comment). B. Right pleura, biopsy: Acute organizing and chronic pleuritis (see comment). 08/28/2023 Thoracentesis Data Latest Reference Range & Units 09/04/2023 10/01/2023 05/18/24 12:52 Site, BF Pleural Cavity, Right Pleural Cavity, Right Pleural Cavity, Right Color, BF Yellow Yellow Yellow Yellow Clarity, BF Clear Hazy Hazy Clear Supernatant Clarity, BF Clear Clear RBC, Body Fluid <2,000 /uL 7000 <2,000 Total Nucleated Cells, BF <1,000 /uL 1307 443 Diff Total Body Fluid cells counted 100 Neut%, BF 0 - 1 % 5 14 (H) Lymph%, BF 18 - 36 % 39 80 (H) Macro%, BF 64 - 80 % 56 4 (L) Eosin%, BF % 0 2 Reac Lymph %, BF See comment BF Pathologist Interpretation Numerous mature polymorphous lymphocytes. If there is clinical concern for a lymphoproliferative disorder, please order flow cytometric analysis. LD,Body Fluid See Comment U/L 86 LD, Serum 209 Body Fluid Type (Albumin) Pleural Cavity, Right Albumin, Body Fluid See Comment g/dL 1.4 Body Fluid Type (Chol) Pleural Cavity, Right Cholesterol, Body Fluid See Comment mg/dL 30 Glucose, Body Fld See Comment mg/dL 119 113 106 Body Fluid Type (pH) Pleural Cavity, Right Pleural Cavity, Right pH, Body Fluid 8.2 7.9 Protein, Body Fluid See Comment g/dL 3.7 3.7 2.2 Total Protein Serum 6.6 Body Fluid Type (Triglyceride) Pleural Cavity, Right Pleural Cavity, Right Triglycerides, Body Fluid mg/dL 21 13 Amylase, Body Fluid Units.L 20 Cholesterol Mg/dL 59 Fluid to serum ratios of LDH and TP are consistent with transudate. F/u: 4 - 6 weeks.. Triston Riggs M.D. Staff, Interventional Pulmonology. Pulmonary, Allergy & Critical Care Medicine [facility] documented in this encounter [facility] 06-12-2024 History of Present illness Narrative PROGRESS NOTES Patient Name: Sav Raymundo SERVICE DATE: 06/12/2024 SERVICE TIME: 3:04 PM HPI: Mr. Raymundo is a 74 year old male who presents for Effusion (Recurrent pleural on right).The amount of pleural infusion has decreased,but increased muscle cramps.Lots of gas formation MEDICATIONS: Current Outpatient Medications Medication Sig Dispense Refill potassium chloride ER (KLOR-CON M20) 20 mEq tablet Take 2 tablets by mouth two times a day. (Patient taking differently: Take 40 mEq by mouth two times a day. 2 in Am and 2 in PM) 120 tablet 2 calcium gte-dwg-G0-Zn-electron microscopist-kian 250 mg-40 mg- 125 unit-3.75mg tab Take by mouth. torsemide (DEMADEX) 100 mg tablet Take 1 tablet by mouth once daily. 90 tablet 0 budesonide, enteric coated (ENTOCORT EC) 3 mg 24 hr capsule Take 3 capsules by mouth once daily for 60 days, THEN 2 capsules once daily for 15 days, THEN 1 capsule once daily for 7 days. [address] (PROTONIX) 40 mg tablet Take 1 tablet by mouth two times a day. 180 tablet 0 diclofenac (VOLTAREN) 1 % topical gel amoxicillin (AMOXIL) 500 mg capsule predniSONE (DELTASONE) 10 mg tablet Take 1 tablet by mouth as directed. Prednisone 10 mg 2 tabs tid x 5 days,2 tabs bid x 5 days,3 tabs daily x 5 days,2 tabs daily x 5 days,1 tab daily x 5 days,1/2 daily x 4 days and stip 82 tablet 0 allopurinol (ZYLOPRIM) 300 mg tablet Take 300 mg by mouth once daily. atorvastatin (LIPITOR) 10 mg tablet Take 1 tablet by mouth once daily. alsfqu-yrwhsnst-wwtfhlf (CREON) 36,000-114,000- 180,000 unit delayed release capsule Take 2 capsules by mouth three times a day with meals. 200 capsule 1 No current facility-administered medications for this visit. REVIEW OF SYSTEMS GENERAL: Negative for malaise, significant weight loss and fever HEENT: Negative for frequent or significant headaches, significant changes in vision or vision problems, significant ear problems or hearing loss, nasal discharge or nose bleeds and sore throat, difficulty swallowing, mouth lesions NECK: Negative for goiter, pain and significant neck swelling RESPIRATORY: Negative for cough, wheezing and shortness of breath CARDIOVASCULAR: Negative for chest pain, leg swelling and palpitations GASTROINTESTINAL: Negative for abdominal discomfort, blood in stools or black stools, and change in stool. GENITOURINARY: Negative for dysuria, frequency and incontinence MUSCULOSKELETAL: Negative for joint pain or swelling, back pain,+muscle pain. NEUROLOGIC: Negative for focal numbness or weakness, headaches and dizziness. SKIN: Negative for lesions, rash, and itching. PSYCHIATRIC: Negative for sleep disturbance, mood disorder and recent psychosocial stressors. HEMATOLOGIC/LYMPHATIC/IMMUNOLOGIC: Negative for prolonged bleeding, bruising easily, and swollen nodes. ENDOCRINE: Negative for cold or heat intolerance, polyuria, polydipsia and goiter. PHYSICAL EXAMINATION: BP 118/74 Pulse 83 Temp 98.6 Resp 16 Ht 6' 0 (1.83m) Wt 189 lb (85.7kg) SpO2 98% BMI 25.63 kg/(m^2). General appearance: Normal, healthy, cooperative, in no acute distress, alert Skin: Skin color, texture, turgor normal. No rashes or lesions. Head: Normocephalic. No masses, lesions, tenderness or abnormalities Eyes: conjunctivae/corneas clear. PERRL, EOM's intact. Ears: External ears normal. Canals clear. TM's normal. Nose/Sinuses: Nares normal. Septum midline. Mucosa normal. No drainage or sinus tenderness. Oropharynx: Lips, mucosa, and tongue normal. Teeth and gums normal. Oropharynx normal. Neck: Neck supple, no adenopathy; thyroid symmetric, normal size Back: Back symmetric, no curvature. ROM normal. No CVA tenderness. Lungs: Percussion normal. Good diaphragmatic excursion. Lungs clear to auscultation. Heart: Stanford normal. Precordium quiet. RRR. Normal HS with no murmurs.. Abdomen: Abdomen soft, non-tender. BS normal. No masses, organomegaly Extremities: Normal exam of the extremities, Extremities normal. No deformities, edema, or skin discoloration Musculoskeletal: Spine ROM normal. Muscular strength intact. Peripheral pulses: normal, capilliary refill <2secs, strong peripheral pulses Neuro: Gait normal. Reflexes normal and symmetric. Sensation grossly intact. ASSESSMENT/PLAN: 1. Recurrent 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 - ICD9: 511.9, ICD10: J90 (primary diagnosis) - Decrease Torsemide 50 mg daiy 2. Primary hypertension - ICD9: 401.9, ICD10: I10 - Controlled - Continue current medications - Recommend home blood pressure monitoring, to bring results to next visit - Encouraged sodium restriction, DASH or Mediterranean diet - Recommend regular aerobic exercise 3. Lymphocytic colitis - ICD9: 558.9, ICD10: K52.832 - On Entocort 4. Elevated C-reactive protein (CRP) - ICD9: 790.95, ICD10: R79.82 - No Vasculitis 5. Exocrine pancreatic insufficiency - ICD9: 577.8, ICD10: K86.81 - CREON 36,000 UNIT-114,000 UNIT-180,000 UNIT CAPSULE,DELAYED RELEASE start Jose Antonio Meyers MD SIGNATURE: Jose Antonio Meyers MD DATE: June 12, 2024 TIME: 3:04 PM documented in this encounter [facility] 06-03-2024 Note [facility] 06-03-2024 History of Present illness Narrative Images from the original note were not included. Rheumatology FOLLOW UP VISIT Date of Service: 06/01/2024 Patient: Sav Raymundo Medical Record: [id number] Primary Care Physician: Yuli Mariscal DO Last Rheumatology visit: 06/01/2024 (with Steffen Sanchez) History of Present Illness Sav Raymundo is a 74 year old White male who presents on 06/01/2024 for an in-person visit for evaluation of Effusion. He is currently taking prednisone. Sav is both RF - 9 (12/21/2023) and CCP - 13.5 (12/21/2023) negative. His most recent GREY was negative (03/30/2024). HISTORY OF PRESENT ILLNESS 74 yo M no prior PMHx except for bilateral knee replacements and [place] fracture s/p surgery who presents for evaluation of recurrent pleural effusion Doing well until last year 10/2022 when he started to have bouts of dry cough which progressively got worse around thanksgiving time. On 06/2023 he saw local physician and he was placed on empiric prednisone course as a trial which helped significantly with cough. However, once he finished, cough came back. On 08/15/2023 he presented to the ER and found to have bilateral pleural effusions (R>L) and ?pericardial effusion. Follow up imaging both L pleural and pericardial effusion resolved. Referred to outpatient pulmonology and underwent 1st thoracentesis of his R lung on 09/04/2023 (around 700cc, exudative per patient, negative otherwise). By 10/01/2023 had another thoracentesis (inconclusive but negative for malignancy) Then decided to come to [facility] for second opinion. Saw Thoracic surgery first and underwent on 11/20/2023 R VATS with R mechanic assistant and doxyxyclyine pleurodesis, pleural biopsy. 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 Unfortunately, since, had recurrence of pleural effusions which has resulted in drainage 3 times a week. In December 2023, presented to the ED with anasarca. Had to undergo lasix drip with over 30 pounds weight loss in a matter of days. While admitted, Rheumatology consulted. GREY by EIA negative, CCP Ab and RF negative. Started still on HCQ trial 400mg daily On Jan 2024, provided with prednisone trial by internal medicine doctor 60mg X 5 days > 40mg X 5 days > 30mg X 5 days > 20mg X 5 days > 10mg X 5 days > 5mg X 5 days until OFF. Cough completely resolved while on this taper and drainage decreased significant from 450-800 (which he usually gets out )down to 150-200ml for some days Most recently, seen by Pulmonology and completed new CT chest with few GGO in R upper posterior lobe new from prior of infectious/inflammatory etiology. ECHO normal. Referred to us for further evaluation On evaluation today - No rashes - No oral/nasal ulcers - No sinus symptoms - No ear fullness or hearing loss - No chest pain except for he coughs. - No shortness of breath - No hemoptysis - No joint pain/swelling - No raynauds - No muscle weakness - No fevers nor weight loss. No LAD - No family history of rheumatic disease INTERVAL HISTORY Since last visit Mr. Adams has been doing much better He was seen by GI and underwent scoping EGD/Colonoscopy - found to have lymphocytic colitis Started on pantoprazole (replacing prilosec), sucralfate and budesonide taper with excellent response - diarrhea resolved At the same time, seen by Cardiology and switched to torsemide with also good response - output from pleural effusion decreased significantly Seen by Pulmonology who suspected gut-lung disorder at this point. Underwent repeated pleural fluid testing (in process) Stopped HCQ and OFF prednisone Work up here negative for underlying rheumatic disease as below: negative GREY, negative ANCA, normal UA and prot/creat ratio, negative RF/CCP Pain Evaluation 04/28/2024 04/28/2024 04/28/2024 04/28/2024 04/28/2024 Pain Evaluation Pain Score 0 0 0 0 0 Patient-Entered Data PROMIS Assessments 10/23/2023 PROMIS Global Health - (T-Scores - the mean of general population = 50. Five points is a clinically meaningful difference.) Physical T-Score 44.9 Mental T-Score 43.5 10/23/2023 PROMIS CAT Pain Interference PROMIS Adult Short Form-Global Health Score (Mental) 43.5 (Good) No data to display No data to display RAPID 3 Mittal Activities of Daily Living No Data Dress self? - Get in and out of bed? - Walk outdoors? - Wash and dry body? - Get in and out of car? - RAPID 3 Disease Activity Weighed Score Levels: 0 - 1: Near Remission 1.3 - 2.0: Low Severity 2.3 - 4.0: Moderate Severity 4.3 - 10.0: High Severity No data to display Review of Systems ROS RHEUMATOLOGYAll other reviewed and negative other than HPI. Past Medical History PAST MEDICAL HISTORY Diagnosis Date GERD (gastroesophageal reflux disease) History of basal cell cancer left shoulder Mixed hyperlipidemia Osteoarthritis of multiple joints Pleural effusion, right s/p Thoracentesis 10/01/23 = 520 cc, 625 cc Past Surgical History PAST SURGICAL HISTORY Procedure Laterality Date ANESTH OPEN/SURG ARTHRS TOTAL KNEE ARTHROPLASTY Left 08/23/2014 ARTHROSCOPY KNEE DIAGNOSTIC W/WO SYNOVIAL BX SPX Left 2010 ORTHOPEDIC SURGERY HX Right wrist PAST SURGICAL HISTORY OF Left 11/2014 Shoulder -BASAL CELL CARCINOMA EXCISION TOTAL KNEE REPLACEMENT Right 06/25/2016 Family History FAMILY HISTORY Problem Relation Age of Onset Heart Father Colon Cancer No Family History Social History Social History Tobacco Use Smoking status: Never Smokeless tobacco: Never Vaping Use Vaping status: Never Used Substance Use Topics Alcohol use: Yes Comment: socially, no drink since 06/2023 Drug use: Never Current Medications Current Outpatient Medications Medication Sig potassium chloride ER (KLOR-CON M20) 20 mEq tablet Take 2 tablets by mouth two times a day. (Patient taking differently: Take 40 mEq by mouth two times a day. 2 in Am and 2 in PM) calcium bvm-hga-W0-Zn-electron microscopist-kian 250 mg-40 mg- 125 unit-3.75mg tab Take by mouth. torsemide (DEMADEX) 100 mg tablet Take 1 tablet by mouth once daily. budesonide, enteric coated (ENTOCORT EC) 3 mg 24 hr capsule Take 3 capsules by mouth once daily for 60 days, THEN 2 capsules once daily for 15 days, THEN 1 capsule once daily for [address] (PROTONIX) 40 mg tablet Take 1 tablet by mouth two times a day. diclofenac (VOLTAREN) 1 % topical gel amoxicillin (AMOXIL) 500 mg capsule allopurinol (ZYLOPRIM) 300 mg tablet Take 300 mg by mouth once daily. atorvastatin (LIPITOR) 10 mg tablet Take 1 tablet by mouth once daily. predniSONE (DELTASONE) 10 mg tablet Take 1 tablet by mouth as directed. Prednisone 10 mg 2 tabs tid x 5 days,2 tabs bid x 5 days,3 tabs daily x 5 days,2 tabs daily x 5 days,1 tab daily x 5 days,1/2 daily x 4 days and stip (Patient not taking: Reported on 05/18/2024) Labs Latest Ref Rng & Units 12/26/2023 03/03/2024 03/30/2024 04/20/2024 CBC WBC 3.70 - 11.00 k/uL 5.29 7.63 6.84 7.96 Hemoglobin 13.0 - 17.0 g/dL 12.5 12.8 11.9 12.0 Hematocrit 39.0 - 51.0 % 39.2 39.0 38.4 38.0 Platelet Count 150 - 400 k/uL 218 255 243 267 Abs Neut (ANC) 1.45 - 7.50 k/uL 4.77 5.91 Abs Lymph 1.00 - 4.00 k/uL 1.21 0.95 Latest Ref Rng & Units 03/30/2024 04/20/2024 05/18/2024 05/29/2024 CMP Sodium 136 - 144 mmol/L 142 140 142 142 Potassium 3.7 - 5.1 mmol/L 4.1 3.9 3.4 4.1 Chloride 98 - 107 mmol/L 105 101 98 100 CO2 22 - 30 mmol/L 27 24 28 29 Glucose 74 - 99 mg/dL 95 105 112 158 BUN 9 - 24 mg/dL 17 15 21 28 Creatinine 0.73 - 1.22 mg/dL 1.26 1.23 1.14 1.19 Calcium 8.5 - 10.2 mg/dL 9.0 9.1 9.1 9.3 AST 14 - 40 U/L 22 27 28 ALT 10 - 54 U/L 13 14 22 Alkaline Phosphatase 38 - 113 U/L 121 141 174 Latest Ref Rng & Units 12/24/2023 Uric Acid Uric Acid 4.0 - 8.1 mg/dL 7.6 Latest Ref Rng & Units 12/21/2023 12/25/2023 ESR, WSR WSR 0 - 15 mm/hr 33 28 Latest Ref Rng & Units 12/21/2023 12/25/2023 03/30/2024 04/20/2024 CRP CRP <0.9 mg/dL 1.8 1.1 2.1 8.4 Latest Ref Rng & Units 03/30/2024 C3, C4 C3 86 - 166 mg/dL 168 C4 13 - 46 mg/dL 42 Latest Ref Rng & Units 03/30/2024 CK CK 51 - 298 U/L 56 Latest Ref Rng & Units 12/21/2023 12/21/2023 RF and CCP Rheumatoid Factor <16 IU/mL <10 CCP Antibody IgG Qualitative Negative Negative CCP Antibody, IgG <20 Units <15 Latest Ref Rng & Units 04/20/2024 Hepatitis Screen Hep B Surface Ag Negative Negative 03/30/2024 04/20/2024 TB Screen TB Interpretation Infection with M. tuberculosis complex is unlikely. If latent tuberculosis infection is highly suspected, a negative result does not rule out the infection. Specimens from immunocompromised patients and those <5 years of age may show false negative results. In case of a contact investigation, please repeat 8-12 weeks after a known exposure. Infection with M. tuberculosis complex is unlikely. If latent tuberculosis infection is highly suspected, a negative result does not rule out the infection. Specimens from immunocompromised patients and those <5 years of age may show false negative results. In case of a contact investigation, please repeat 8-12 weeks after a known exposure. TB Result Negative Negative Latest Ref Rng & Units 11/12/2023 03/30/2024 Antibodies GREY Negative Negative Crithidia lucillae Negative Negative Anti-Sm <1.0 AI <0.2 Sm Antibody Negative Negative Ribosomal ADOBE MAKER Ab <1.0 AI <0.2 Ribosomal ADOBE MAKER Qualitative Negative Negative Chromatin Ab <1.0 AI <0.2 Chromatin Ab Qual Negative Negative SSA Antibody Qual Negative Negative Anti-SSA <1.0 AI <0.2 Anti-SSB <1.0 AI <0.2 ADOBE MAKER Antibody QUAL Negative Negative Scleroderma Ab Qual Negative Negative Scl-70 Abs, EIA <1.0 AI <0.2 Centromere Ab <1.0 AI <0.2 CENTROMERE AB QUAL Negative Negative ALICE-1 ANTIBODY, IGG <1.0 AI <0.2 ALICE 1 ANTIBODY QUAL Negative Negative PT Sec 9.7 - 13.0 sec 12.0 PT INR 0.9 - 1.3 1.1 APTT 23.0 - 32.4 sec 28.9 Latest Ref Rng & Units 12/21/2023 12/25/2023 03/30/2024 ANCA Myeloperoxidase <470 pmol/L 328 Myeloperoxidase Antibody (MPO) <1.0 AI <0.2 Proteinase 3 Antibody <1.0 AI <0.2 Proteinase-3 Antibody <1.0 AI <0.2 P-ANCA Fluorescence Negative Negative C-ANCA Fluorescence Negative Negative Myeloperoxidase Antibody (MPO) <1.0 AI <0.2 Proteinase-3 Antibody <1.0 AI <0.2 Latest Ref Rng & Units 11/12/2023 12/20/2023 03/30/2024 03/30/2024 Urinalysis Protein, Urine Negative Trace Trace Negative RBC, Urine 0-2 /HPF 0-3 /HPF 0-2 /HPF Protein/Creat Ratio <0.15 mg/mg 0.17 Imaging Reviewed Last XR Chest - Impression Only XR CHEST 2V FRONTAL/LAT Exam End: 05/18/2024 10:55 AM (Final result) Impression: IMPRESSION: Slight decrease in the right pleural effusion.. ... Health Maintenance Current Immunizations Reviewed on 06/01/2024 Name Date COVID-19 vaccine, monovalent (NavPrescience) 09/13/2020, 08/22/2020, 08/15/2020 influenza (aIIV3) vaccine 05/09/2020 influenza vaccine 05/09/2020 pneumococcal (PCV13) vaccine 11/26/2016 pneumococcal (PPV23) vaccine 02/03/2018 tetanus diphtheria (Td) vaccine 08/30/2018, 06/04/2018 zoster (RZV) vaccine 08/30/2018 Physical Exam GENERAL APPEARANCE: Well groomed. Alert and oriented x 3. In no distress. VITAL SIGNS: BP 136/74 Pulse 78 Temp (Src) 97.9 (Temporal) Ht 6' 0 (1.83m) Wt 186 lb 8.2 oz (84.6kg) BMI 25.29 kg/(m^2). Physical Exam SKIN: No rash, thickening, nodules, discoloration. EYES: PERRL, EOMI HENT: Normal external examination of the ears and nose, lips, oropharynx and tongue. No oropharyngeal lesions, exudate, or sores. NECK: No mass or asymmetry. RESPIRATORY: Normal respiratory effort. Clear to auscultation and percussion. CARDIOVASCULAR: Heart RRR without gallop, murmur, or rub ABDOMEN: BS normal. No bruits, No tenderness, mass, or hepatosplenomegaly. NEUROLOGIC: Sensory exam normal. MUSCULOSKELETAL EXAMINATION: Soft tissue tender points: None Motor exam: Normal 5+/5+ muscle strength. Normal bulk and tone. Spine: Cervical spine: No visible abnormalities. Full ROM. No tenderness to palpation. Thoracic spine: No visible abnormalities. No tenderness to palpation. Lumbar spine: No visible abnormalities. Full ROM. No tenderness to palpation SI Joints: No tenderness to palpation. Negative Jose Martin s Test Upper extremities: Shoulders: Full ROM in all esparza, no tenderness to palpation. No swelling or effusion. Negative impingement signs via Neer s Test and Hawkin s Test. Negative Job s Test. Negative Speed s Test and Yergason s Test for biceps tendon. Elbows: Full ROM in flexion and extension. No swelling or effusion. No tenderness to palpation to the joint line, olecranon, medial or lateral epicondyles. Wrists: Full ROM in all esparza. No swelling or synovitis. No pain with pronation/supination. No tenderness to palpation Hands: Full ROM in flexion and extension. Full structurer strength. No swelling or synovitis along the MCPs, PIPs, and DIPs. No tenderness along the MCPs, PIPs, and DIPs. Negative Va s test. Lower extremities: Hips: Full ROM without pain. No tenderness to palpation along greater trochanter, gluteal fossa, or piriformis. Negative log roll. Negative JESSICA and FADIR tests. Knees: Full ROM in flexion and extension. No swelling or effusion. No tenderness to palpation. Negative patellar apprehension and glide. Negative patellar crepitus and grind. Negative provocative exams including José s, valgus stress at 0 and 30 degrees, varus stress at 0 and 30 degrees, McMurrays Test, and Posterior Drawer. Ankles: Full ROM in all esparza. No swelling or effusion. No tenderness to palpation along the joint line, medial/lateral malleolus, ATFL, PTFL, CFL, or Achilles Tendon. Feet: Full ROM in toe flexion/extension. No effusion. No tenderness to palpation. No evidence of MTP swelling. There is currently no information documented on the [facility]. Go to the Rheumatology activity and complete the [facility] joint exam. Joint Exam 06/01/2024 No joint exam has been documented for this visit Joint Exam Data (across time) Impression Diagnoses: (J90) Pleural effusion (primary encounter diagnosis) (R70.0) Elevated sed rate (R79.82) Elevated C-reactive protein (CRP) 74 yo M no prior PMHx except for bilateral knee replacements and R hand fracture s/p surgery who presents for evaluation of recurrent pleural effusion Patient presents with 1 year history of primarily recurrent R >L pleural effusion which has been moderate/large s/p VATS/pleurodesis/pleural biopsy showing acute organizing pleuritis and chronic pleuritis. No malignancy identified to date. ECHO 03/[address] chest 03/2024 isolated R pleural effusion although CT Abdomen 12/2023 with ?small pelvic/abdominal ascites. Responsive to sporadic courses of prednisone raising first question of underlying rheumatic disease. Per my evaluation, low suspicion for SLE/RA/MCTD/vasculitis considering he lacked rest of specific symptoms of these conditions and work up repeated here showed negative GREY/RF/CCP Ab/ANCA. Would be atypical to have unilateral pleural effusion as the sole manifestation of rheumatic disease. Later on, evaluated by GI due to chronic diarrhea and diagnosed with lymphocytic colitis which led to believe possible gut/lung disorder and currently with excellent response to combination therapy as above (budesonide, torsemide, PPI). Hence, no further work up from my standpoint. Would continue management as per Pulm/GI and will follow pending testing from most recent pleural fluid sample. Plan Orders this visit: No orders found for this visit on 06/01/24. Will continue to hold HCQ as no role to re-introduce at this point Follow up with GI, Pulm and Cardiology Follow up as needed No follow-ups on file. I spent a total of 30 minutes on the date of the service which included preparing to see the patient, [id number] patient care, completing clinical documentation, obtaining and/or reviewing separately obtained history, performing a medically appropriate examination, and counseling and educating the patient/family/caregiver. ___ Steffen Sanchez MD Rheumatology Date: June 03, 2024 Time: 10:43 AM documented in this encounter [facility] 05-26-2024 History of Present illness Narrative Follow Up Visit SUBJECTIVE 74 year old male with diarrhea here for follow-up. Last seen 04/20/2024. Changes and test results since last visit: Diagnosed with lymphocytic colitis on random colon biopsies. Started on budesonide and feels better Diarrhea has improved significantly. No abdominal pain CBC: WBC (k/uL) Date Value 04/20/2024 7.96 Hematocrit (%) Date Value 04/20/2024 38.0 (L) MCV (fL) Date Value 04/20/2024 96.7 Platelet Count (k/uL) Date Value 04/20/2024 267 Lymphocytes % (%) Date Value 04/20/2024 11.9 Hepatic Function Panel: Albumin (g/dL) Date Value 05/18/2024 3.8 (L) Bilirubin, Total (mg/dL) Date Value 05/18/2024 0.7 Alkaline Phosphatase (U/L) Date Value 05/18/2024 174 (H) AST (U/L) Date Value 05/18/2024 28 ALT (U/L) Date Value 05/18/2024 22 Protein, Total (g/dL) Date Value 05/18/2024 6.6 Patient-Entered Data 10/23/2023 PROMIS Global Health - (T-Scores - the mean of general population = 50. Five points is a clinically meaningful difference.) Physical T-Score 44.9 Mental T-Score 43.5 10/23/2023 PROMIS Global Health Scale Physical Health Percentile 31 Mental Health Percentile 26 Current Outpatient Medications Medication Sig Dispense Refill potassium chloride ER (KLOR-CON M20) 20 mEq tablet Take 2 tablets by mouth two times a day. 120 tablet 2 calcium yli-mfl-J0-Zn-electron microscopist-kian 250 mg-40 mg- 125 unit-3.75mg tab Take by mouth. torsemide (DEMADEX) 100 mg tablet Take 1 tablet by mouth once daily. 90 tablet 0 budesonide, enteric coated (ENTOCORT EC) 3 mg 24 hr capsule Take 3 capsules by mouth once daily for 60 days, THEN 2 capsules once daily for 15 days, THEN 1 capsule once daily for 7 days. [address] (PROTONIX) 40 mg tablet Take 1 tablet by mouth two times a day. 180 tablet 0 sucralfate (CARAFATE) 1 gram tablet Take 1 tablet by mouth two times a day. 60 tablet 0 diclofenac (VOLTAREN) 1 % topical gel amoxicillin (AMOXIL) 500 mg capsule predniSONE (DELTASONE) 10 mg tablet Take 1 tablet by mouth as directed. Prednisone 10 mg 2 tabs tid x 5 days,2 tabs bid x 5 days,3 tabs daily x 5 days,2 tabs daily x 5 days,1 tab daily x 5 days,1/2 daily x 4 days and stip (Patient not taking: Reported on 05/18/2024) 82 tablet 0 allopurinol (ZYLOPRIM) 300 mg tablet Take 300 mg by mouth once daily. atorvastatin (LIPITOR) 10 mg tablet Take 1 tablet by mouth once daily. No current facility-administered medications for this visit. ALLERGIES Allergen Reactions Tramadol Mental Status Change PHYSICAL EXAMINATION There were no vitals taken for this visit. General Appearance: alert, oriented x 3, pleasant and in no acute distress Heart:regular rate and rhythm, no murmurs or gallops Abdomen: Not distended. Normal bowel sounds. Soft and non-tender. No masses or organomegaly. Skin: no rashes or lesions Lymph:No cervical, axillary, supraclavicular, or inguinal adenopathy. Assessment IMPRESSION Lymphocytic colitis Anasarca/ recurrent pleural effusions PLAN Continue with budesonide taper followed by imodium as needed Nutritional consult can be considered for hypoalbuminemia Work up for protein losing enteropathy in 3 months Sue Murillo MD May 26, 2024 9:42 AM documented in this encounter [facility] 05-26-2024 Note [facility] 05-25-2024 Telephone encounter Note Spoke with spouse to schedule appt 1/6 [facility] 05-25-2024 Miscellaneous Notes Spoke with spouse to schedule appt 1/6 documented in this encounter [facility] 05-18-2024 Instructions Louise Douglas MD - 05/18/2024 11:40 AM EST There are 3 issues we are dealing with - Cough, Pleural effusion, small spots in lung. They could be separate or connected. Testing for systemic inflammation (rheumatic disease, immunologic, autoimmune disease) is negative, but gut inflammation can cause these issues. Coughing - maybe from eosphageal/food-pipe. Rarely coughing can come from inflammatory bowel disease. Treat gut disease, and monitor response. Use inhaler as needed, 2 puffs 2 times a day, but use as needed (2-5 times a day), wash/rinse/gargle mouth/throat after use. Next steps may be bronchoscopy. Groundglass opacities (GGO), seems minor, small, posterior upper lobe - CT scan follow up Pleural effusion - we will check tests, follow up CT scan and see Interventional Pulmonary in [place] or [place]. Pleuroscopy could be considered but difficult after Angelique chest surgery (VATS pleurodesis) Next steps to do - see Interventional Pulmonary Dr. Riggs/Vicki with CT scan - stay tuned. Please check in if you don't hear anything in the next 2-[address] Reinaldo Douglas MD Pulmonary and Critical Care Medicine [facility] documented in this encounter [facility] 05-18-2024 History of Present illness Narrative Radiology Service Progress Note PATIENT NAME: Sav Raymundo DATE OF SERVICE: May 18, 2024 TIME: 10:54 AM PATIENT IDENTITY VERIFICATION COMPLETED USING TWO (2) IDENTIFIERS: Name and Date of confirmed by patient verbally. FALL SCREENING: Has the patient had 2 falls in the last year or 1 fall with injury or currently using an Ambulatory Assistive Device (Walker, Cane, Wheelchair, Crutches, etc.)? No PATIENT GENDER DATA: Male PATIENT RELEVANT IMPLANT DATA REVIEWED: Not Applicable PATIENT PRESENTS WITH AN IMPLANTABLE OR ATTACHED DIRECTOR REACTOR PROJECTS: No RADIOLOGY DEPARTMENT: General X-ray: Exam(s) Completed: Chest X-Ray PERIPHERAL IV DATA: Not applicable SIGNED BY: RT Rosaline(R) May 18, 2024 10:54 AM documented in this encounter [facility] 05-18-2024 Note [facility] 05-18-2024 Note [facility] 05-18-2024 History of Present illness Narrative Images from the original note were not included. INTERVAL HPI: Willie is a gentleman in his 70s, from the [facility], here for follow-up for pleural effusion. He is a complex case, and has been in generally good health until the last 1 year. He presented with chronic recurrent cough, and pleural effusion, that needed several thoracentesis. This process seems to be responsive to steroids. We do not have pleural effusion analysis (most of it was done in outside hospital). he was then referred for pleurodesis to thoracic surgery in [facility], which he underwent in November 2023. Though no pleural fluid analysis done, but pleural biopsy showed pleuritis. Post pleurodesis, he continued to have significant drainage, tunneled pleural catheter was placed. He was then hospitalized ( abdominal bloating ) -in [facility], and responded well to diuresis. He has been evaluated by rheumatology, and was empirically placed on Plaquenil, but extensive workup has been negative, so was taken off Plaquenil for the past few weeks. We have confirmed that previous autoimmune labs were drawn when off steroids. He was last seen in the pulmonary clinic in March -and our thought was this is likely rheumatologic process, given brisk response to steroids (both cough and pleural drainage decreases). Since then: -Coughing and effusion drainage has continued (350 to 500 mL every other day) -Rheumatologic assessment done, workup negative, transportation solutions manager has no evidence of any autoimmune disease -Off prednisone for the last 5 months -Off Plaquenil for the past 3 weeks -On diuretics, now on torsemide Interestingly, on further discussion, mostly with transportation solutions manager, we have uncovered that he has been having longstanding diarrhea at the same time. He underwent evaluation by GI, with endoscopy and colonoscopy. He was noted to have: -Lymphocytic colitis, started on budesonide, seems to be doing a bit better on that -Esophageal stenosis, hiatal hernia (as per patient he was dilated, though no documentation seen) Chest imaging (x-ray and CT scan), shows persistent effusion, very small groundglass opacity nodules). HPI on March 17, 2024: Sav Raymundo is a gentleman in his 70s, presenting to the pulmonary clinic, for chronic cough and recurrent right-sided pleural effusion s/p R-VATS pleural biopsy, right mechanic assistant and doxycycline pleurodesis, right Pleurx catheter insertion, on 12/10/2023. Mr. Kumar presents with an interesting history. He is a semiretired gentleman from the [facility], with virtually no past medical history, very active, started having issues since last year in March 2023. He presented with a bout of coughing, was treated by his primary care physician with a Z-Tanner with little effect. In the next few months his cough got worse, but with no significant dyspnea, and the cough was dry. He was treated with prednisone with excellent effect. In June 2023-he was given prednisone again, and he went on a cruise, and once the prednisone was finished his cough came back. Throughout the next few months he has been on prednisone off-and-on, and every time he has been on prednisone the cough has completely resolved. Due to his persistent coughing bouts, an x-ray was obtained, which showed right-sided pleural effusion, and he was referred to a local social work instructor. He underwent thoracentesis several times, each time pleural fluid analysis showed exudative fluid. CT scan was obtained locally which did not reveal much except pleural effusion. CT scan also shows pericardial effusion. He was then referred by his local social work instructor to [facility] for a pleurodesis. In November 2023, he underwent VATS pleurodesis (mechanical and doxycycline), with pleural biopsy, and the Pleurx catheter was also placed. Analysis of the pleural fluid and biopsies of the pleura showed acute and chronic pleuritis with organization, but no malignancy. We do not have pleural fluid chemical or hematological analysis done in [facility], but cytology was negative for malignant cells. He was discharged with Pleurx catheter, and and has been draining pleural fluid about 500 to 800 mL every other day. And his dry cough has also been persistent. In December 2023, he was sent to [facility] after seeing thoracic surgery ADRIENNE for anasarca, and was admitted. His abdomen and subcutaneous tissues especially in his legs were swollen, no ascites found, but significant skin edema including blisters were seen. He improved with Lasix drip, was evaluated by rheumatology, and so far his serologies have been negative, but he has been placed on a dose of hydroxychloroquine. So far the effect of hydroxychloroquine has not been much. He is scheduled to see rheumatology in [facility] in the next 2 weeks. Of note he has been on prednisone on and off for the whole month of January, and the effect has been noticeable is not dramatic -cough completely resolves, pleural fluid drainage decreases to about 100 mL per session. But interestingly, he reports no symptoms that can be attributed to connective tissue disease. PULM ROS: Negative for symptoms of sarcoidosis - lymphadenopathy; eye redness, floatters, blurry vision; SOB, cough, palpitations; syncope, lightheadedness; skin rash; tingling, numbness sensation on feet and/or hand; SICCA symptoms; sinus symptoms, nasal crusting; history of nephrolithiasis; arthritis, From a cardiopulmonary standpoint, mild notes dyspnea with activities such as exertion. This has not been progressive over the last 1 year. He has cough but no wheeze and there is no history of hemoptysis. He denies near syncope, syncope, chest pain, palpitations, PND, orthopnea but has significant lower extremity edema. From a rheumatologic standpoint,-negative review of systems he has dry eyes, but negative for dry mouth, oral/nasal ulcers, gastroesophageal reflux, joint pain or swelling, muscle pain or weakness, change in skin texture, rash or skin lesions, photosensitivity, alopecia, Raynaud phenomenon or digital ulcers. There is no family history for CTD. From an interstitial lung disease standpoint, there is no occupational, medication or environmental exposures. There is no family history for interstitial lung disease. From a pulmonary hypertension standpoint, no denies a history of congenital heart disease, lung disease, heart disease, sleep-disordered breathing, connective tissue disease, liver disease, HIV, diet drug use, illicit drug use, hemoglobinopathy, splenectomy, sarcoidosis, clotting disorder or history of pulmonary embolism. There is no family history for PAH. Respiratory ROS: BROOKS: Minimal at baseline, Orthopnea: no at baseline, PND: no at baseline, Pedal Edema: Present at baseline, now improved Weight: Improved Cough: See HPI, persistent at baseline, Nocturnal awakenings: No at baseline, Sputum: Clear mucus GERD: No MAU: No Home O2: No Vaccines: current except flu shot PMH:pleural effusion, ?fluid overload/CHF?, chronic cough - local PCP, has [facility] PCP, Dr. 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 Outpatient Medications: calcium vtt-xwl-B4-Zn-electron microscopist-kian 250 mg-40 mg- 125 unit-3.75mg tab Take by mouth. potassium chloride ER (KLOR-CON) 20 mEq tablet Take 20 mEq by mouth three times a day. torsemide (DEMADEX) 100 mg tablet Take 1 tablet by mouth once daily. budesonide, enteric coated (ENTOCORT EC) 3 mg 24 hr capsule Take 3 capsules by mouth once daily for 60 days, THEN 2 capsules once daily for 15 days, THEN 1 capsule once daily for [address] (PROTONIX) 40 mg tablet Take 1 tablet by mouth two times a day. sucralfate (CARAFATE) 1 gram tablet Take 1 tablet by mouth two times a day. diclofenac (VOLTAREN) 1 % topical gel amoxicillin (AMOXIL) 500 mg capsule allopurinol (ZYLOPRIM) 300 mg tablet Take 300 mg by mouth once daily. atorvastatin (LIPITOR) 10 mg tablet Take 1 tablet by mouth once daily. predniSONE (DELTASONE) 10 mg tablet Take 1 tablet by mouth as directed. Prednisone 10 mg 2 tabs tid x 5 days,2 tabs bid x 5 days,3 tabs daily x 5 days,2 tabs daily x 5 days,1 tab daily x 5 days,1/2 daily x 4 days and stip (Patient not taking: Reported on 05/18/2024) Pain today: Mr. Raymundo is not having pain related to the reason for this visit. PHYSICAL EXAM: Physical Exam BP 136/82 Pulse 76 Temp (Src) 97.8 (Oral) Wt 209 lb 7 oz (95.0kg) SpO2 96% Edema improved GEN: Alert, oriented x 3, NAD, speaking in full sentences HEENT: PERRL, EOMI, mouth and oropharynx clear, nares patent CHEST: lungs reduced breath sounds bilaterally, poor air exchange on the right base, no wheeze / rales / rhonchi, on visual inspection no chest wall deformities and chest excursion normal, no chest discomfort on palpation, close catheter in place HEART: RRR, no murmurs / rubs/ gallops auscultated, no heaves / lifts by palpation ABD: Soft, non-distended, non-tender EXT: No edema, clubbing or cyanosis NEURO: CN II - XII grossly intact with no focal deficits Labs / Imaging / Diagnostic Studies: All radiography listed below personally reviewed by me Data Reviewed from [facility] (in addition to that noted in HPI, and Past histories above): CMP, CBC Testing data, personally reviewed and interpreted by me: PFT, Imaging, Labs, CVS data. Assessment: Sav Raymundo is a 74 year old male presents for evaluation/follow-up of: for chronic cough and recurrent right-sided pleural effusion s/p R-VATS pleural biopsy, right mechanic assistant and doxycycline pleurodesis, right Pleurx catheter insertion, on 12/10/2023. On detailed clinical evaluation and review of all available data: Sav Raymundo seemed to have a steroid responsive disease characterized by right-sided pleural effusion and chronic dry cough. However detailed rheumatologic evaluation, clinically as well as biochemically have all been negative. Interestingly, GI issues have been addressed in the last few months - lymphocytic colitis, hiatal hernia/esophageal stenosis. Patient now reports that diarrhea from lymphocytic colitis has been ongoing during the same time as the cough and pleural effusion. He has been off steroids for several months, previous autoimmune labs were drawn off steroids, Plaquenil stopped in the last few weeks. Cough and pleural drainage from Pleurx continues. Chest imaging (x-ray and CT scan), shows persistent effusion, very small groundglass opacity nodules). We can arguably support the following conclusions: -These are our active issues: # Pulmonary: Cough, persistent pleural effusion, small groundglass opacity # Diarrhea/lymphocytic colitis # Esophageal stenosis, hiatal hernia, reflux - We may not have a unifying diagnosis. The cough could be explained with esophageal disorders. - However overall processes seem to be steroid responsive, though autoimmune workup is negative -This could be a manifestation of gut-lung axis disorders. To lymphocytic colitis has not been a well-established disorder in this spectrum. To continue further workup we will: - Do pleural fluid analysis, send pleural fluid from the Pleurx catheter. We drained 100 mL of straw-colored fluid from his tunneled pleural catheter, and sent for analysis, along with blood tests. -Refer to interventional pleural specialists Dr. Triston Riggs/Dr. Sam Cohen, with repeat CT scan. Due to VATS in November, pleuroscopy might be challenging. -Continue off systemic immunosuppression -seeing rheumatology again in a few weeks -Continue aggressive treatment for colitis with GI Testing data, personally reviewed and interpreted by me: PFT: 03/2024 - FENO 13, normal marcia, FEV1 80%, DLCO 85% normal, lung vol mild restriction, TLC 67%, -likely from pleural effusion? Imagin2023 CT OSH 2023 - Rt pleural effusion, pericardial effusion seen in July 2023 CT scan CXR - right pleural effusion 10/2023 NM amyloid - neg, rt 7th rip lat, +ve uptake 12/2023 CT abd/pel - sub-cut edema 03/17/2024 CT chest with contrast: Official report pending, my review, pleural effusion right side, at this and atelectasis, vascular structures in the lung are not prominent, no lymphadenopathy, no large nodules, pulmonary artery looks generous Labs: NTproBNP 464, neg rheum work up so far Path: Pleura, biopsy. 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 They could be separate or connected. Testing for systemic inflammation (rheumatic disease, immunologic, autoimmune disease) is negative, but gut inflammation can cause these issues. Coughing - maybe from eosphageal/food-pipe. Rarely coughing can come from inflammatory bowel disease. Treat gut disease, and monitor response. Use inhaler as needed, 2 puffs 2 times a day, but use as needed (2-5 times a day), wash/rinse/gargle mouth/throat after use. Next steps may be bronchoscopy. Groundglass opacities (GGO), seems minor, small, posterior upper lobe - CT scan follow up Pleural effusion - we will check tests, follow up CT scan and see Interventional Pulmonary in [facility] or [place]. Pleuroscopy could be considered but difficult after Angelique chest surgery (VATS pleurodesis) Sav Raymundo understands the plan and discussion and is comfortable with it. I spent a total of 45 minutes on the date of the service which included preparing to see the patient, [id number] patient care, completing clinical documentation, obtaining and/or reviewing separately obtained history, performing a medically appropriate examination, counseling and educating the patient/family/caregiver, ordering medications, tests, or procedures, independently interpreting results (not separately reported), and care coordination (not separately reported). Louise Douglas MD documented in this encounter [facility] 05-13-2024 History of Present illness Narrative PROGRESS NOTES Patient Name: Sav Raymundo SERVICE DATE: 05/13/2024 SERVICE TIME: 11:13 AM HPI: Mr. Raymundo is a 74 year old male who presents for Breathing Problem (Follow up).Had colonoscopy/EGD that revealed hiatal hernia.GERD,started on Protonix 40 mg bid,Sucralfate 1g bid.Colonoscopy showed lymphocytic colitis MEDICATIONS: Current Outpatient Medications Medication Sig Dispense Refill budesonide, enteric coated (ENTOCORT EC) 3 mg 24 hr capsule Take 3 capsules by mouth once daily for 60 days, THEN 2 capsules once daily for 15 days, THEN 1 capsule once daily for 7 days. [address] (PROTONIX) 40 mg tablet Take 1 tablet by mouth two times a day. 180 tablet 0 sucralfate (CARAFATE) 1 gram tablet Take 1 tablet by mouth two times a day. 60 tablet 0 VSEEKIK-GFBBHMNWH-KUQG ORAL Take by mouth. iv contrast (will be provided with radiology test) CT Chest W -Inject, intravenously, once for 1 dose.No IV access, insert saline lock prior to the beginning of sedation, infusion, injection of imaging exam. Discontinue saline lock post exam. If Pt. has a central line or IVAD, may access for administration according to line specific nursing protocol. Once exam is complete flush line and de-access according to line specific nursing protocol in the CT contrast administration guidelines link. 1 Each 0 diclofenac (VOLTAREN) 1 % topical gel amoxicillin (AMOXIL) 500 mg capsule predniSONE (DELTASONE) 10 mg tablet Take 1 tablet by mouth as directed. Prednisone 10 mg 2 tabs tid x 5 days,2 tabs bid x 5 days,3 tabs daily x 5 days,2 tabs daily x 5 days,1 tab daily x 5 days,1/2 daily x 4 days and stip 82 tablet 0 acetaminophen (TYLENOL) 500 mg tablet Take 2 tablets by mouth every 6 hours. allopurinol (ZYLOPRIM) 300 mg tablet Take 300 mg by mouth once daily. atorvastatin (LIPITOR) 10 mg tablet Take 1 tablet by mouth once daily. calcium nez-vcl-V5-Zn-electron microscopist-kian 250 mg-40 mg- 125 unit-3.75mg tab Take by mouth. potassium chloride ER (KLOR-CON) 20 mEq tablet Take 20 mEq by mouth three times a day. torsemide (DEMADEX) 100 mg tablet Take 1 tablet by mouth once daily. 90 tablet 0 torsemide (DEMADEX) 100 mg tablet Take 1 tablet by mouth once daily. 90 tablet 0 No current facility-administered medications for this visit. REVIEW OF SYSTEMS GENERAL: Negative for malaise, significant weight loss and fever HEENT: Negative for frequent or significant headaches, significant changes in vision or vision problems, significant ear problems or hearing loss, nasal discharge or nose bleeds and sore throat, difficulty swallowing, mouth lesions NECK: Negative for goiter, pain and significant neck swelling RESPIRATORY: Positive for cough, no wheezing and shortness of breath CARDIOVASCULAR: Negative for chest pain, leg swelling and palpitations GASTROINTESTINAL: Positive for abdominal discomfort, no blood in stools or black stools, and change in stool. GENITOURINARY: Negative for dysuria, frequency and incontinence MUSCULOSKELETAL: Negative for joint pain or swelling, back pain, and muscle pain. NEUROLOGIC: Negative for focal numbness or weakness, headaches and dizziness. SKIN: Negative for lesions, rash, and itching. PSYCHIATRIC: Negative for sleep disturbance, mood disorder and recent psychosocial stressors. HEMATOLOGIC/LYMPHATIC/IMMUNOLOGIC: Negative for prolonged bleeding, bruising easily, and swollen nodes. ENDOCRINE: Negative for cold or heat intolerance, polyuria, polydipsia and goiter. PHYSICAL EXAMINATION: BP 122/78 Pulse 75 Temp 98.6 Resp 16 Ht 6' 0 (1.83m) Wt 209 lb (94.8kg) SpO2 98% BMI 28.34 kg/(m^2). General appearance: Overweight, healthy, cooperative, in no acute distress, alert Skin: Skin color, texture, turgor normal. No rashes or lesions. Head: Normocephalic. No masses, lesions, tenderness or abnormalities Eyes: conjunctivae/corneas clear. PERRL, EOM's intact. Ears: External ears normal. Canals clear. TM's normal. Nose/Sinuses: Nares normal. Septum midline. Mucosa normal. No drainage or sinus tenderness. Oropharynx: Lips, mucosa, and tongue normal. Teeth and gums normal. Oropharynx normal. Neck: Neck supple, no adenopathy; thyroid symmetric, normal size Back: Back symmetric, no curvature. ROM normal. No CVA tenderness. Lungs: Percussion normal. Good diaphragmatic excursion. Lungs clear to auscultation. Heart: Stanford normal. Precordium quiet. RRR. Normal HS with no murmurs.. Abdomen: Abdomen soft, non-tender. BS normal. No masses, organomegaly,+3 abdominal wall pitting edema Extremities: Normal exam of the extremities, Extremities normal. No deformities,+2 pitting edema, no skin discoloration Musculoskeletal: Spine ROM normal. Muscular strength intact. Peripheral pulses: normal, capilliary refill <2secs, strong peripheral pulses Neuro: Gait normal. Reflexes normal and symmetric. Sensation grossly intact. ASSESSMENT/PLAN: 1. Recurrent 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 - ICD9: 511.9, ICD10: J90 (primary diagnosis) - Stop Lasix - TORSEMIDE 100 MG TABLET start - TORSEMIDE 100 MG TABLET start 2. Anasarca - ICD9: 782.3, ICD10: R60.1 - TORSEMIDE 100 MG TABLET - TORSEMIDE 100 MG TABLET 3. Chronic cough - ICD9: 786.2, ICD10: R05.3 - Getting better 4. Primary hypertension - ICD9: 401.9, ICD10: I10 - Worsening control - Stop BP tablets - Recommend home blood pressure monitoring, to bring results to next visit - Encouraged sodium restriction, DASH or Mediterranean diet - Recommend regular aerobic exercise Jose Antonio Meyers MD SIGNATURE: Jose Antonio Meyers MD DATE: May 13, 2024 TIME: 11:13 AM documented in this encounter [facility] 05-07-2024 Telephone encounter Note . [facility] 05-07-2024 Miscellaneous Notes . documented in this encounter [facility] 04-28-2024 History and physical note HISTORY AND PHYSICAL Sav Raymundo, 74 year old male Current history and physical on file: Yes Is a new History and Physical required for today's visit? Yes Indication for procedure: GERD and Screening PROCEDURE(S) SCHEDULED FOR: Colonoscopy with or without biopsies and with or without removal of polyps or lesions, dilation (any means), treatment of bleeding (any means), based on clinical findings. and EGD (Esophagogastroduodenoscopy) with or without biopsies, removal of polyps or lesions, dilation ( any means), treatment of bleeding ( any means), Barrx treatment of Chris's Esophagus, image tube placement or cryo therapy treatment based on clinical findings. BASELINE BEHAVIOR: Calm BASELINE ORIENTATION: A & O x3 All medications and allergies reviewed: Yes Skin Assessment: Warm dry mucus membranes pink Airway/Respiratory Assessment: Airway: visualization of the uvula- Yes Mouth: opening greater than 2 fingerbreadths- Yes Neck: full range of motion- Yes Breath sounds clear/equal- Yes Cardiac Assessment: Regular rate and rhythm without murmur Abdominal Assessment: Abdomen soft, non-tender, no masses or organomegaly. Sedation Plan: MAC Additional Comments: None Vic Ponce MD [facility] 04-28-2024 History and physical note HISTORY AND PHYSICAL Sav Raymundo, 74 year old male Current history and physical on file: Yes Is a new History and Physical required for today's visit? Yes Indication for procedure: GERD and Screening PROCEDURE(S) SCHEDULED FOR: Colonoscopy with or without biopsies and with or without removal of polyps or lesions, dilation (any means), treatment of bleeding (any means), based on clinical findings. and EGD (Esophagogastroduodenoscopy) with or without biopsies, removal of polyps or lesions, dilation ( any means), treatment of bleeding ( any means), Barrx treatment of Chris's Esophagus, image tube placement or cryo therapy treatment based on clinical findings. BASELINE BEHAVIOR: Calm BASELINE ORIENTATION: A & O x3 All medications and allergies reviewed: Yes Skin Assessment: Warm dry mucus membranes pink Airway/Respiratory Assessment: Airway: visualization of the uvula- Yes Mouth: opening greater than 2 fingerbreadths- Yes Neck: full range of motion- Yes Breath sounds clear/equal- Yes Cardiac Assessment: Regular rate and rhythm without murmur Abdominal Assessment: Abdomen soft, non-tender, no masses or organomegaly. Sedation Plan: [facility] Additional Comments: None Vic Ponce MD documented in this encounter [facility] 04-28-2024 Nurse Note PATIENT EDUCATION TOPIC: PROCEDURE / SURGERY: Post Procedure Teaching: Med Administration and Symptom Management PATIENT NAME: Sav Raymundo PATIENT LOCATION: Room/bed info not found READINESS TO LEARN COGNITIVE ABILITY: Alert and oriented MOTIVATION TO LEARN: Interested FAMILY SUPPORT: High - Very involved in pt care INSTRUCTION PROVIDED TO: Patient and Spouse PATIENT LEARNS BEST BY: Individual Instruction FACTORS AFFECTING LEARNING: None PHYSICAL LIMITATIONS AFFECTING LEARNING: None LEARNING RESPONSE DIAGNOSIS: ADULT: esophageal stricture and 60F dilation, hiatal hernia, gastritis, gastric polyp PATIENT/FAMILY RESPONSE: Verbalizes understanding of: POST-PROCEDURE INSTRUCTIONS-Correct actions to take to reduce post procedure complications METHOD OF INSTRUCTION: Individual instruction Written instruction/Handouts Verbal instruction FOLLOW-UP PLAN: Complete - No need for follow-up INSTRUCTIONAL AIDS USED: NA SUPPLEMENTAL MATERIAL PROVIDED TO PATIENT: None REFERRAL (RECOMMENDATION): None [facility] 04-28-2024 Nurse Note PATIENT EDUCATION TOPIC: PROCEDURE / SURGERY: Post Procedure Teaching: Med Administration and Symptom Management PATIENT NAME: Sav Raymundo PATIENT LOCATION: Room/bed info not found READINESS TO LEARN COGNITIVE ABILITY: Alert and oriented MOTIVATION TO LEARN: Interested FAMILY SUPPORT: High - Very involved in pt care INSTRUCTION PROVIDED TO: Patient and Spouse PATIENT LEARNS BEST BY: Individual Instruction FACTORS AFFECTING LEARNING: None PHYSICAL LIMITATIONS AFFECTING LEARNING: None LEARNING RESPONSE DIAGNOSIS: ADULT: esophageal stricture and 60F dilation, hiatal hernia, gastritis, gastric polyp PATIENT/FAMILY RESPONSE: Verbalizes understanding of: POST-PROCEDURE INSTRUCTIONS-Correct actions to take to reduce post procedure complications METHOD OF INSTRUCTION: Individual instruction Written instruction/Handouts Verbal instruction FOLLOW-UP PLAN: Complete - No need for follow-up INSTRUCTIONAL AIDS USED: NA SUPPLEMENTAL MATERIAL PROVIDED TO PATIENT: None REFERRAL (RECOMMENDATION): None PATIENT EDUCATION TOPIC: PROCEDURE / SURGERY: Pre Procedure Teaching: Complication Prevention PATIENT NAME: Sav Raymundo PATIENT LOCATION: Room/bed info not found READINESS TO LEARN COGNITIVE ABILITY: Alert and oriented MOTIVATION TO LEARN: Eager FAMILY SUPPORT: None - Unavailable/disinterested INSTRUCTION PROVIDED TO: Patient PATIENT LEARNS BEST BY: Individual Instruction FACTORS AFFECTING LEARNING: None PHYSICAL LIMITATIONS AFFECTING LEARNING: None LEARNING RESPONSE DIAGNOSIS: ADULT: PATIENT/FAMILY RESPONSE: Verbalizes understanding of: PRE-PROCEDURE INSTRUCTIONS-Correct action to take to follow pre-procedure instructions METHOD OF INSTRUCTION: Individual instruction FOLLOW-UP PLAN: Complete - No need for follow-up INSTRUCTIONAL AIDS USED: NA SUPPLEMENTAL MATERIAL PROVIDED TO PATIENT: None REFERRAL (RECOMMENDATION): None Electronically Signed By: Maureen Laughlin documented in this encounter [facility] 04-28-2024 Nurse Note PATIENT EDUCATION TOPIC: PROCEDURE / SURGERY: Pre Procedure Teaching: Complication Prevention PATIENT NAME: Sav Raymundo PATIENT LOCATION: Room/bed info not found READINESS TO LEARN COGNITIVE ABILITY: Alert and oriented MOTIVATION TO LEARN: Eager FAMILY SUPPORT: None - Unavailable/disinterested INSTRUCTION PROVIDED TO: Patient PATIENT LEARNS BEST BY: Individual Instruction FACTORS AFFECTING LEARNING: None PHYSICAL LIMITATIONS AFFECTING LEARNING: None LEARNING RESPONSE DIAGNOSIS: ADULT: PATIENT/FAMILY RESPONSE: Verbalizes understanding of: PRE-PROCEDURE INSTRUCTIONS-Correct action to take to follow pre-procedure instructions METHOD OF INSTRUCTION: Individual instruction FOLLOW-UP PLAN: Complete - No need for follow-up INSTRUCTIONAL AIDS USED: NA SUPPLEMENTAL MATERIAL PROVIDED TO PATIENT: None REFERRAL (RECOMMENDATION): None Electronically Signed By: Maureen Laughlin [facility] 04-22-2024 History of Present illness Narrative Radiology Service Progress Note DATE OF SERVICE: April 22, 2024 TIME: 10:33 AM PATIENT WEIGHT: 205LBS PATIENT IDENTITY VERIFICATION COMPLETED USING TWO (2) STANDARD IDENTIFIERS: Name and Date of confirmed by patient verbally. FALL SCREENING: Has the patient had 2 falls in the last year or 1 fall with injury or currently using an Ambulatory Assistive Device (Walker, Cane, Wheelchair, Crutches, etc.)? No PATIENT GENDER DATA: Male ALLERGIES: Reviewed and unchanged CONTRAST ALLERGY: No EXAM: MRI - CONTRAST TYPE: GROUP II IV SITE: Ambulatory: A peripheral IV was started in the Left wrist with a Angio cath: 22 gauge. and A Saline lock was inserted per protocol. IV started on 5th IV attempt due to difficulty flushing IV with blood return. 2 attempts by this RN, 2 attempts by Tonya Wagner repair technician. Patient requests to try again to have test completed due to long drive to facility. IV started by this RN. IV SITE APPEARANCE: Clean,Dry and Intact SIGNATURE: Soni Robbins RN PATIENT NAME: Sav Raymundo DATE: April 22, 2024 TIME: 10:33 AM Radiology Service Progress Note PATIENT NAME: Sav Raymundo DATE OF SERVICE: April 22, 2024 TIME: 11:55 AM PATIENT IDENTITY VERIFICATION COMPLETED USING TWO (2) IDENTIFIERS: Name and Date of confirmed by patient verbally. FALL SCREENING: Has the patient had 2 falls in the last year or 1 fall with injury or currently using an Ambulatory Assistive Device (Walker, Cane, Wheelchair, Crutches, etc.)? No PATIENT PRESENTS WITH AN IMPLANTABLE OR ATTACHED DIRECTOR REACTOR PROJECTS: No RADIOLOGY DEPARTMENT: CT; Exam(s) Completed: Enterography PERIPHERAL IV DATA: Not applicable SIGNED BY: RT Tyree(R) April 22, 2024 11:55 AM documented in this encounter [facility] 04-22-2024 Note [facility] 04-22-2024 Note [facility] 04-21-2024 Note [facility] CALPROTECTIN, FECAL INTERP Borderline elevated. Re-evaluation in 4-6 weeks is recommended if clinically indicated.(A) Normal 04/21/2024 9:04 PM EST [facility] Comment on above: Interpretation: <50.0 ug/g: Normal 50.0 ug/g - 120.0 ug/g: Borderline elevated. Re-evaluation in 4-6 weeks is recommended if clinically indicated. >120.0 ug/g: Elevated 04-20-2024 Note Borderline elevated. Re-evaluation in 4-6 weeks is recommended if clinically indicated. [facility] Comment on above: Order Comment: Speci men Type: STOOL SPECIMENOrdering Facility: Address: [address] [place] [address] [place] [address] Result Comment: Inte rpretation:<50.0 ug/g: Vyhhtu34.0 ug/g - 120.0 ug/g: Borderline elevated. Re-evaluation in 4-6 weeks is recommended if clinically indicated.>120.0 ug/g: Elevated Performed By: #### 5 [id number], [id number], [facility] ####[facility] [id number] [place] [address] [place] 04-20-2024 Instructions Sue Murillo MD - 04/20/2024 12:27 PM EST COLONOSCOPY BOWEL PREPARATION INSTRUCTIONS MiraLAX Your doctor has scheduled you for a colonoscopy. To have a successful colonoscopy, you must have a clean colon, that is empty. A clean colon allows your doctor to see the entire colon & diagnose issues like polyps or cancer. For doctors, a clean colon is like driving on a opal day; a dirty colon like driving in a storm. It is very important that you follow these instructions exactly, or your colonoscopy may not be as effective, could be canceled, and you may need to do the bowel prep and colonoscopy again. TRANSPORTATION REQUIREMENTS You are receiving IV sedation. For your safety, a responsible adult escort must accompany you to and from your procedure: Your adult escort MUST be present with you at check-in for your colonoscopy. Your adult escort MUST remain in the endoscopy area until you are discharged. Your adult escort MUST transport you home once you are discharged. You are NOT allowed to operate any form of transportation (i.e. drive a car, bicycle, etc) or leave the Endoscopy Center ALONE. It is not safe to do so. If you cannot meet these requirements, your procedure will be canceled. MEDICATION REQUIREMENTS For your safety, certain medications will need to be stopped or adjusted before you can have your procedure: BLOOD THINNERS: If you take blood thinners, such as Coumadin (warfarin), Plavix (clopidogrel), Ticlid (ticlopidine hydrochloride), Agrylin (anagrelide), Xarelto (Rivaroxaban), Pradaxa (Dabigatran), Eliquis (Apixaban), or Effient (Prasugrel), contact the physician who is prescribing these medications at least 2 weeks prior to your procedure to discuss any necessary adjustments. DIABETES: If you take medications for diabetes, your dosage may need to be adjusted. If you are being treated for diabetes with insulin, diabetic pills, or other injectable medications do not take your REGULAR dose after midnight on the day of your procedure. If you are taking any other types of insulin such as Lantus, Humalog, NPH (long-acting insulin), or 70/30 insulin, take half your normal dose the day before your procedure. DIABETES/WEIGHT MANAGEMENT: If you take medications for weight-loss, your dosage may need to be adjusted Contact the doctor who prescribes this medication for further instructions. If you take medications for weight-loss like semaglutide (Ozempic, Wegovy, Rybelsus), dulaglutide (Trulicity), liraglutide (Victoza, Saxenda), exenatide (Byetta, Bydureon), or lixisenatide (Adylyxin), stop your medication 1 week prior to your procedure. If you take medications like canagliflozin (Invokana), dapagliflozin (Farxiga, Forxiga), empagliflozin (Jardiance), stop your medication 3 days prior to your procedure. If you take ertugliflozin (Steglatro) stop your medication 4 days prior to your procedure. IRON: If you take iron pills, STOP them 1 week BEFORE your procedure, may resume after. OTHER MEDS: May take all other medications (including aspirin, antibiotics, water pills / diuretics like Lasix or Metolozone, blood pressure meds, etc.) at their usual scheduled time with water. DIET REQUIREMENTS The day before your colonoscopy, you may have a clear liquid diet (see below). The day of your colonoscopy, you may continue a clear liquid diet until 3 hours before your colonoscopy. Within 3 hours of your colonoscopy, take only any medications (as above) with a sip of water. Clear Liquid Diet Broth (chicken, beef or vegetable broth or bullion. Just the broth, no solids). Water Coffee or Tea (NO milk or creamer), but sugar and sugar substitutes are allowed. Clear liquids including clear, yellow, green, blue (NO red, NO orange, NO purple) Sodas / soft drinks; Gatorade or other sports drinks Fruit juice (strained; no-pulp); Jose De Jesus-Aid or flavored drinks Plain Jell-O or other gelatins Popsicles or hard candy Bowel prep can work differently from person to person. Some people's bowels move slowly and they may need different instructions. Please see your doctor in office or virtually for personalized bowel prep instructions if you have: BOWEL PREPARATION (MIRALAX/GATORADE) Split Dosing Bowel Prep: This means drinking your bowel prep in two doses. Split dosing helps clean your colon better and makes it less likely that your procedure will be canceled. You will need to purchase the following (no prescriptions are needed): 64 ounces Gatorade, Propel, Crystal Lite or other noncarbonated clear liquid sports drink (NOT red, orange, or purple). Diabetic patients buy sugar-free, e.g. Gatorade G2 4 Dulcolax laxative tablets containing 5mg bisacodyl each (do not buy the stool softener) 8.3 oz MiraLAX (238g) powder or generic polyethylene glycol 3350 (find in laxative aisle) The day before your colonoscopy mix 64 oz of the sports drink with 8.3 oz MiraLAX (238 g) in a pitcher. Stir or shake until MiraLAX completely dissolved. Chill if desired. On the evening before your colonoscopy: 5 PM take 4 Dulcolax laxative tablets with water by mouth. 6 PM drink the first half of the Gatorade/MiraLAX solution Drink one 8-ounce glass every 15 minutes. Six hours before your colonoscopy, drink the second half of the solution. Drink one 8-ounce glass every 15 minutes. You may continue a clear liquid diet until 3 hours before your colonoscopy. Bowel prep can work differently from person to person. Some people's bowels move slowly and they may need different instructions. Please see your doctor in office or virtually for personalized bowel prep instructions if you have: Medical condition that needs special accommodations Had a poor bowel prep results or failed bowel prep attempts in the past. Had difficulty with anesthesia during the procedure. FREQUENTLY ASKED QUESTIONS Q: What if I suffer from constipation? A: Recommend taking extra laxatives to resolve your constipation days prior to entering the bowel prep day. Q: What if have had prior poor preps results in past? A: Contact your physician as you will likely need additional bowel prep instructions. Q: What if I have motility issues like Parkinson's, MS (multiple sclerosis), wheelchair dependent, etc.? or on medications that slow colonic transit times (narcotics, gabapentin, anticholinergic medications etc.) A: Contact your physician as you will likely need extra time and additional laxatives to complete your bowel prep. Q: What if I cannot drink large volume of liquid? A: Start your prep 2-3 hours earlier to allow yourself more time to complete the entire prep. Q: What if I had bariatric surgery? Do I still have to complete the entire prep? A: Yes, gastric bypass surgery involves the stomach & small bowel. You may need to drink smaller amounts, slower (may need more time to complete your bowel prep). Gastric bypass does not alter the length of your colon so you will need to complete the entire bowel prep, it may just take longer time to complete it. Q: What if I am on dialysis? A: Please consult your yard worker prior to scheduling to get instructions pertinent to you. In general, dialysis patients take the Golytely bowel prep and have the procedure same day of their dialysis (colonoscopy in AM, dialysis in PM). Q: How do I know if something is considered as clear liquid diet? A: If you can pour it in a glass and you can see through it, it is considered clear liquid Q: Can I eat nuts, seeds, beans, popcorn, dried fruits, vegetables & fruits that have skin peel? A: No, you will need to not eat these items starting 3 days prior to procedure. Q: Can I take Uber/Lyft/taxi/bus home? A: An adult MUST be present with you at check-in for your colonoscopy and remain in the endoscopy area until you are discharged. You can take Uber home only if this adult escort is with you at check in, remain in the endoscopy area until you are discharged, and takes the Uber with you to home. Q: Can I sleep it off here and drive myself home? A: No, you must have an adult with you at time of procedure check in, remain in the endoscopy center during your procedure, and drive you home. You cannot drive a vehicle after your procedure the rest of the day. Q: What if I can't finish my bowel prep? A: If you cannot complete your entire bowel prep, there is high likelihood that your colonoscopy will need to be rescheduled due to inadequate prep quality. documented in this encounter [facility] 04-20-2024 Note [facility] 04-20-2024 History of Present illness Narrative NAME: Sav Raymundo [facility] NO: [id number] REASON FOR VISIT Sav Raymundo is a 74 year old male who is scheduled for a consult at the request of Steffen Sanchez. Patient presents with: Diarrhea PRESENTING COMPLAINT:Establish care HISTORY OF PRESENTING ILLNESS: This is a 74 years old male with past medical history of hypertension, anasarca of unknown etiology, possible autoimmune disease, recurrent pleural effusion, hypokalemia, hypomagnesemia and Gout presented in clinic today to establish care for his recent GI symptoms. His symptoms of diarrhea and vomiting started on 12/20/23. So far no work up done for his chronic diarrhea Feels bloated and multiple bowel moments/ day. Has fecal incontinence Diarrhea started after plaquenil and lasix Last colonoscopy in 2020 and was normal Last EGD was more than 30 years ago. Patient referred by rheumatology to evaluate possible GI reason of his recurrent pleural effusions-unilateral Current Clinical Symptoms # of bowel movements daily: 6-8 # of liquid stools daily: all Consistency: watery Bloody bowel movements: no Urgency: yes Abdominal pain: no Abdominal distention: yes Nausea/vomiting: yes Weight loss over last 3 months: yes: 30 lbs General well-being: very well PAST SURGICAL HISTORY Procedure Laterality Date ANESTH OPEN/SURG ARTHRS TOTAL KNEE ARTHROPLASTY Left 08/23/2014 ARTHROSCOPY KNEE DIAGNOSTIC W/WO SYNOVIAL BX SPX Left 2010 ORTHOPEDIC SURGERY HX Right Hand PAST SURGICAL HISTORY OF Left 11/2014 Shoulder -BASAL CELL CARCINOMA EXCISION TOTAL KNEE REPLACEMENT Right 06/25/2016 PAST MEDICAL HISTORY Diagnosis Date GERD (gastroesophageal reflux disease) History of basal cell cancer left shoulder Mixed hyperlipidemia Osteoarthritis of multiple joints Pleural effusion, right s/p Thoracentesis 10/01/23 = 520 cc, 625 cc Current Outpatient Medications Medication Sig Dispense Refill [id number] ORAL Take by mouth. iv contrast (will be provided with radiology test) CT Chest W -Inject, intravenously, once for 1 dose.No IV access, insert saline lock prior to the beginning of sedation, infusion, injection of imaging exam. Discontinue saline lock post exam. If Pt. has a central line or IVAD, may access for administration according to line specific nursing protocol. Once exam is complete flush line and de-access according to line specific nursing protocol in the CT contrast administration guidelines link. 1 Each 0 diclofenac (VOLTAREN) 1 % topical gel amoxicillin (AMOXIL) 500 mg capsule furosemide (LASIX) 80 mg tablet Take 1 tablet by mouth once daily. 90 tablet 0 furosemide (LASIX) 40 mg tablet Take 1 tablet by mouth once daily. At 2 pm 90 tablet 0 hydrOXYchloroQUINE (PLAQUENIL) 200 mg tablet Take 1 tablet by mouth two times a day. 180 tablet 0 predniSONE (DELTASONE) 10 mg tablet Take 1 tablet by mouth as directed. Prednisone 10 mg 2 tabs tid x 5 days,2 tabs bid x 5 days,3 tabs daily x 5 days,2 tabs daily x 5 days,1 tab daily x 5 days,1/2 daily x 4 days and stip 82 tablet 0 acetaminophen (TYLENOL) 500 mg tablet Take 2 tablets by mouth every 6 hours. allopurinol (ZYLOPRIM) 300 mg tablet Take 300 mg by mouth once daily. atorvastatin (LIPITOR) 10 mg tablet Take 1 tablet by mouth once daily. omeprazole (PRILOSEC) 20 mg capsule Take 20 mg by mouth once daily. magnesium oxide (MAG-OX) 400 mg (241.3 mg magnesium) tablet Take 1 tablet by mouth two times a day. (Patient not taking: Reported on 03/17/2024) 60 tablet 0 calcium carbonate (OS-ELIZABETH 500) 500 mg calcium (1,250 mg) tablet Take 1 tablet by mouth two times a day. (Patient not taking: Reported on 03/17/2024) 180 tablet 0 ipratropium-albuterol (DUONEB) 0.5 mg-3 mg(2.5 mg base)/3 mL nebu Inhale 3 mL as instructed every 6 hours as needed for wheezing/shortness of breath. (Patient not taking: Reported on 03/17/2024) 360 mL 0 No current facility-administered medications for this visit. Tramadol Recent Labs: CBC: WBC (k/uL) Date Value 03/30/2024 6.84 03/03/2024 7.63 Hematocrit (%) Date Value 03/30/2024 38.4 (L) MCV (fL) Date Value 03/30/2024 95.8 Platelet Count (k/uL) Date Value 03/30/2024 243 Lymphocytes % (%) Date Value 03/30/2024 17.7 Hepatic Function Panel: Albumin (g/dL) Date Value 03/30/2024 4.1 Bilirubin, Total (mg/dL) Date Value 03/30/2024 0.7 Alkaline Phosphatase (U/L) Date Value 03/30/2024 121 (H) AST (U/L) Date Value 03/30/2024 22 ALT (U/L) Date Value 03/30/2024 13 Protein, Total (g/dL) Date Value 03/30/2024 7.0 Social History Tobacco Use Smoking status: Never Smokeless tobacco: Never Substance Use Topics Alcohol use: Yes Comment: socially, no drink since 06/2023 Drug use: Never ROS EyesNegative for vision changes, diplopia or epiphora. Ears, Mouth, nose, throat:No problems Cardiovascular: No Problems Respiratory: Negative for cough, wheezing and shortness of breath Gastrointestinal : No problems Genitourinary: Negative Musuloskeletal: Normal Integumentary: no rashes, lesions, or jaundice Neurological: No history of neurologic problems Endocrine: Negative for cold or heat intolerance, polyuria, polydipsia and goiter. Psychiatric: Cooperative and agreeable Allergic/ Immunologic: Negative All others negative FAMILY HISTORY Problem Relation Age of Onset Heart Father PHYSICAL EXAMINATION General Appearance: alert, oriented x 3, pleasant and in no acute distress Eyes: No icterus or conjunctival pallor.. Oropharynx: Lips, tongue, and oral mucosa normal. Lungs: no audible wheez Heart: regular rate and rhythm Abdomen: Not distended. Extremities: no cyanosis or edema. Skin: no rashes Assessment IMPRESSION Chronic diarrhea Cough, phlegm followed by vomiting Recurrent pleural effusions PLAN -Blood and stool test ordered -CTE to evaluate small bowel -EGD and colonoscopy ordered -Discuss with the provider if they can discontinue plaquenil Follow up after above work up Sue Murillo MD April 20, 2024 11:46 AM documented in this encounter [facility] 03-31-2024 Note [facility] 03-31-2024 History of Present illness Narrative Images from the original note were not included. Rheumatology CONSULTATION Date of Service: 03/30/2024 Patient: Sav Raymundo Medical Record: [id number] Primary Care Physician: Yuli Mariscal DO Last Rheumatology visit: 03/30/2024 (with Steffen Sanchez) Referring Provider: Tita Landry [id number] [facility] [id number] Sav Raymundo is here today at request of Dr. Landry, LETICIA Brooks.ATTORNEY LAW CLERK specifically for consultation of my opinion in regards to the chief complaint listed below. Correspondence will be shared today via the [facility] electronic health record or through regular mail, where applicable. History of Present Illness Sav Raymundo is a 74 year old White male who presents on 03/30/2024 for an in-person visit for evaluation of recurrent pleural effusion . He is currently taking hydroxychloroquine sulfate, prednisone. Sav is both RF - 9 (12/21/2023) and CCP - 13.5 (12/21/2023) negative. His most recent GREY was negative (03/30/2024). HISTORY OF PRESENT ILLNESS 74 yo M no prior PMHx except for bilateral knee replacements and [place] fracture s/p surgery who presents for evaluation of recurrent pleural effusion Doing well until last year 10/2022 when he started to have bouts of dry cough which progressively got worse around thanksgiving time. On 06/2023 he saw local physician and he was placed on empiric prednisone course as a trial which helped significantly with cough. However, once he finished, cough came back. On 08/15/2023 he presented to the ER and found to have bilateral pleural effusions (R>L) and ?pericardial effusion. Follow up imaging both L pleural and pericardial effusion resolved. Referred to outpatient pulmonology and underwent 1st thoracentesis of his R lung on 09/04/2023 (around 700cc, exudative per patient, negative otherwise). By 10/01/2023 had another thoracentesis (inconclusive but negative for malignancy) Then decided to come to [facility] for second opinion. Saw Thoracic surgery first and underwent on 11/20/2023 R VATS with R mechanic assistant and doxyxyclyine pleurodesis, pleural biopsy. 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 Unfortunately, since, had recurrence of pleural effusions which has resulted in drainage 3 times a week. In December 2023, presented to the ED with anasarca. Had to undergo lasix drip with over 30 pounds weight loss in a matter of days. While admitted, Rheumatology consulted. GREY by EIA negative, CCP Ab and RF negative. Started still on HCQ trial 400mg daily On Jan 2024, provided with prednisone trial by internal medicine doctor 60mg X 5 days > 40mg X 5 days > 30mg X 5 days > 20mg X 5 days > 10mg X 5 days > 5mg X 5 days until OFF. Cough completely resolved while on this taper and drainage decreased significant from 450-800 (which he usually gets out )down to 150-200ml for some days Most recently, seen by Pulmonology and completed new CT chest with few GGO in R upper posterior lobe new from prior of infectious/inflammatory etiology. ECHO normal. Referred to us for further evaluation On evaluation today - No rashes - No oral/nasal ulcers - No sinus symptoms - No ear fullness or hearing loss - No chest pain except for he coughs. - No shortness of breath - No hemoptysis - No joint pain/swelling - No raynauds - No muscle weakness - No fevers nor weight loss. No LAD - No family history of rheumatic disease Pain Evaluation 12/24/2023 12/24/2023 12/25/2023 12/25/2023 12/26/2023 Pain Evaluation Pain Score 0 0 0 0 0 Patient-Entered Data PROMIS Assessments 10/23/2023 PROMIS Global Health - (T-Scores - the mean of general population = 50. Five points is a clinically meaningful difference.) Physical T-Score 44.9 Mental T-Score 43.5 10/23/2023 PROMIS CAT Pain Interference PROMIS Adult Short Form-Global Health Score (Mental) 43.5 (Good) No data to display No data to display RAPID 3 Mittal Activities of Daily Living No Data Dress self? - Get in and out of bed? - Walk outdoors? - Wash and dry body? - Get in and out of car? - RAPID 3 Disease Activity Weighed Score Levels: 0 - 1: Near Remission 1.3 - 2.0: Low Severity 2.3 - 4.0: Moderate Severity 4.3 - 10.0: High Severity No data to display Review of Systems ROS RHEUMATOLOGYAll other reviewed and negative other than HPI. Past Medical History PAST MEDICAL HISTORY Diagnosis Date GERD (gastroesophageal reflux disease) History of basal cell cancer left shoulder Mixed hyperlipidemia Osteoarthritis of multiple joints Pleural effusion, right s/p Thoracentesis 10/01/23 = 520 cc, 625 cc Past Surgical History PAST SURGICAL HISTORY Procedure Laterality Date ANESTH OPEN/SURG ARTHRS TOTAL KNEE ARTHROPLASTY Left 08/23/2014 ARTHROSCOPY KNEE DIAGNOSTIC W/WO SYNOVIAL BX SPX Left 2010 ORTHOPEDIC SURGERY HX Right Hand PAST SURGICAL HISTORY OF Left 11/2014 Shoulder -BASAL CELL CARCINOMA EXCISION TOTAL KNEE REPLACEMENT Right 06/25/2016 Family History FAMILY HISTORY Problem Relation Age of Onset Heart Father Social History Social History Tobacco Use Smoking status: Never Smokeless tobacco: Never Substance Use Topics Alcohol use: Yes Comment: socially, no drink since 06/2023 Drug use: Never Current Medications Current Outpatient Medications Medication Sig [id number] ORAL Take by mouth. iv contrast (will be provided with radiology test) CT Chest W -Inject, intravenously, once for 1 dose.No IV access, insert saline lock prior to the beginning of sedation, infusion, injection of imaging exam. Discontinue saline lock post exam. If Pt. has a central line or IVAD, may access for administration according to line specific nursing protocol. Once exam is complete flush line and de-access according to line specific nursing protocol in the CT contrast administration guidelines link. diclofenac (VOLTAREN) 1 % topical gel amoxicillin (AMOXIL) 500 mg capsule furosemide (LASIX) 80 mg tablet Take 1 tablet by mouth once daily. furosemide (LASIX) 40 mg tablet Take 1 tablet by mouth once daily. At 2 pm hydrOXYchloroQUINE (PLAQUENIL) 200 mg tablet Take 1 tablet by mouth two times a day. predniSONE (DELTASONE) 10 mg tablet Take 1 tablet by mouth as directed. Prednisone 10 mg 2 tabs tid x 5 days,2 tabs bid x 5 days,3 tabs daily x 5 days,2 tabs daily x 5 days,1 tab daily x 5 days,1/2 daily x 4 days and stip potassium chloride ER (KLOR-CON) 20 mEq tablet Take 1 tablet by mouth three times a day. acetaminophen (TYLENOL) 500 mg tablet Take 2 tablets by mouth every 6 hours. allopurinol (ZYLOPRIM) 300 mg tablet Take 300 mg by mouth once daily. atorvastatin (LIPITOR) 10 mg tablet Take 1 tablet by mouth once daily. omeprazole (PRILOSEC) 20 mg capsule Take 20 mg by mouth once daily. magnesium oxide (MAG-OX) 400 mg (241.3 mg magnesium) tablet Take 1 tablet by mouth two times a day. (Patient not taking: Reported on 03/17/2024) calcium carbonate (OS-ELIZABETH 500) 500 mg calcium (1,250 mg) tablet Take 1 tablet by mouth two times a day. (Patient not taking: Reported on 03/17/2024) ipratropium-albuterol (DUONEB) 0.5 mg-3 mg(2.5 mg base)/3 mL nebu Inhale 3 mL as instructed every 6 hours as needed for wheezing/shortness of breath. (Patient not taking: Reported on 03/17/2024) Last Ophthalmology Check for Plaquenil (Hydroxychloroquine) Last OCT Macula Exam No resulted procedures found. Last Visual Field Exam No resulted procedures found. Labs Latest Ref Rng & Units 12/22/2023 12/26/2023 03/03/2024 03/30/2024 CBC WBC 3.70 - 11.00 k/uL 5.83 5.29 7.63 6.84 Hemoglobin 13.0 - 17.0 g/dL 12.7 12.5 12.8 11.9 Hematocrit 39.0 - 51.0 % 39.3 39.2 39.0 38.4 Platelet Count 150 - 400 k/uL 250 218 255 243 Abs Neut (ANC) 1.45 - 7.50 k/uL 4.77 Abs Lymph 1.00 - 4.00 k/uL 1.21 Latest Ref Rng & Units 01/02/2024 01/24/2024 03/03/2024 03/30/2024 CMP Sodium 136 - 144 mmol/L 134 141 141 142 Potassium 3.7 - 5.1 mmol/L 3.6 4.8 4.2 4.1 Chloride 98 - 107 mmol/L 103 101 102 105 CO2 22 - 30 mmol/L 26 30 27 27 Glucose 74 - 99 mg/dL 117 107 110 95 BUN 9 - 24 mg/dL 19 30 18 17 Creatinine 0.73 - 1.22 mg/dL 1.06 1.14 1.15 1.26 Calcium 8.5 - 10.2 mg/dL 9.4 9.7 9.9 9.0 AST 14 - 40 U/L 22 ALT 10 - 54 U/L 13 Alkaline Phosphatase 38 - 113 U/L 121 Latest Ref Rng & Units 12/24/2023 Uric Acid Uric Acid 4.0 - 8.1 mg/dL 7.6 Latest Ref Rng & Units 12/21/2023 12/25/2023 ESR, WSR WSR 0 - 15 mm/hr 33 28 Latest Ref Rng & Units 12/21/2023 12/25/2023 03/30/2024 CRP CRP <0.9 mg/dL 1.8 1.1 2.1 Latest Ref Rng & Units 03/30/2024 C3, C4 C3 86 - 166 mg/dL 168 C4 13 - 46 mg/dL 42 Latest Ref Rng & Units 03/30/2024 CK CK 51 - 298 U/L 56 Latest Ref Rng & Units 12/21/2023 12/21/2023 RF and CCP Rheumatoid Factor <16 IU/mL <10 CCP Antibody IgG Qualitative Negative Negative CCP Antibody, IgG <20 Units <15 03/30/2024 TB Screen TB Interpretation Infection with M. tuberculosis complex is unlikely. If latent tuberculosis infection is highly suspected, a negative result does not rule out the infection. Specimens from immunocompromised patients and those <5 years of age may show false negative results. In case of a contact investigation, please repeat 8-12 weeks after a known exposure. TB Result Negative Latest Ref Rng & Units 11/12/2023 03/30/2024 Antibodies GREY Negative Negative Crithidia lucillae Negative Negative Anti-Sm <1.0 AI <0.2 Sm Antibody Negative Negative Ribosomal ADOBE MAKER Ab <1.0 AI <0.2 Ribosomal ADOBE MAKER Qualitative Negative Negative Chromatin Ab <1.0 AI <0.2 Chromatin Ab Qual Negative Negative SSA Antibody Qual Negative Negative Anti-SSA <1.0 AI <0.2 Anti-SSB <1.0 AI <0.2 ADOBE MAKER Antibody QUAL Negative Negative Scleroderma Ab Qual Negative Negative Scl-70 Abs, EIA <1.0 AI <0.2 Centromere Ab <1.0 AI <0.2 CENTROMERE AB QUAL Negative Negative ALICE-1 ANTIBODY, IGG <1.0 AI <0.2 ALICE 1 ANTIBODY QUAL Negative Negative PT Sec 9.7 - 13.0 sec 12.0 PT INR 0.9 - 1.3 1.1 APTT 23.0 - 32.4 sec 28.9 Latest Ref Rng & Units 12/21/2023 12/25/2023 03/30/2024 ANCA Myeloperoxidase <470 pmol/L 328 Myeloperoxidase Antibody (MPO) <1.0 AI <0.2 Proteinase 3 Antibody <1.0 AI <0.2 Proteinase-3 Antibody <1.0 AI <0.2 P-ANCA Fluorescence Negative Negative C-ANCA Fluorescence Negative Negative Myeloperoxidase Antibody (MPO) <1.0 AI <0.2 Proteinase-3 Antibody <1.0 AI <0.2 Latest Ref Rng & Units 11/12/2023 12/20/2023 03/30/2024 03/30/2024 Urinalysis Protein, Urine Negative Trace Trace Negative RBC, Urine 0-2 /HPF 0-3 /HPF 0-2 /HPF Protein/Creat Ratio <0.15 mg/mg 0.[address] Chest - Impression Only CT CHEST W IVCON Exam End: 03/17/2024 4:02 PM (Final result) Impression: IMPRESSION: 1. A few scattered groundglass opacities are present in the posterior right upper lobe suggestive of an infectious/inflammatory process. This is new since previous exam. 2. Well-positioned right-sided chest tube with a persistent small to moderate-sized pleural effusion. ... Last Echocardiogram LVEF ECHO Collected: 03/26/2024 2:34 PM (Final result) Last XR Chest - Impression Only XR CHEST 2V FRONTAL/LAT Exam End: 03/17/2024 8:41 AM (Final result) Impression: IMPRESSION: Small right effusion noted slightly increased. Right-sided Pleurx catheter present. ... Health Maintenance Current Immunizations Reviewed on 03/30/2024 Name Date COVID-19 vaccine, monovalent ([employer]) 09/13/2020, 08/22/2020, 08/15/2020 influenza (aIIV3) vaccine 05/09/2020 pneumococcal (PCV13) vaccine 11/26/2016 pneumococcal (PPV23) vaccine 02/03/2018 tetanus diphtheria (Td) vaccine 08/30/2018, 06/04/2018 zoster (RZV) vaccine 08/30/2018 Physical Exam GENERAL APPEARANCE: Well groomed. Alert and oriented x 3. In no distress. VITAL SIGNS: BP 141/72 Pulse 92 Temp (Src) 97.7 (Temporal) Ht 5' 11 (1.80m) Wt 207 lb 3.7 oz (94.0kg) BMI 28.92 kg/(m^2). Physical Exam Constitutional: General: He is not in acute distress. Appearance: Normal appearance. HENT: Head: Normocephalic and atraumatic. Nose: Nose normal. Mouth/Throat: Mouth: Mucous membranes are moist. Pharynx: Oropharynx is clear. Eyes: Extraocular Movements: Extraocular movements intact. Conjunctiva/sclera: Conjunctivae normal. Pupils: Pupils are equal, round, and reactive to light. Cardiovascular: Rate and Rhythm: Normal rate and regular rhythm. Heart sounds: No murmur heard. Pulmonary: Effort: Pulmonary effort is normal. Breath sounds: Normal breath sounds. Abdominal: General: Abdomen is flat. Bowel sounds are normal. There is no distension. Palpations: Abdomen is soft. Musculoskeletal: Right shoulder: No swelling or tenderness. Normal range of motion. Left shoulder: No swelling or tenderness. Normal range of motion. Right elbow: Normal. Left elbow: Normal. Right wrist: No swelling or tenderness. Normal range of motion. Left wrist: No swelling or tenderness. Normal range of motion. Right hand: No swelling or tenderness. Left hand: No swelling or tenderness. Right hip: No tenderness. Normal range of motion. Left hip: No tenderness. Normal range of motion. Right upper leg: No swelling or tenderness. Left upper leg: No swelling or tenderness. Right knee: No swelling. Normal range of motion. No tenderness. Left knee: No swelling. Normal range of motion. No tenderness. Right ankle: No swelling. No tenderness. Normal range of motion. Left ankle: No swelling. No tenderness. Normal range of motion. Right foot: No swelling or deformity. Left foot: No swelling or deformity. Skin: General: Skin is warm. Findings: No rash. Neurological: General: No focal deficit present. Mental Status: He is alert and oriented to person, place, and time. Mental status is at baseline. Impression Diagnoses: (J90) Pleural effusion (primary encounter diagnosis) (R70.0) Elevated sed rate (R79.82) Elevated C-reactive protein (CRP) (R19.7) Diarrhea, unspecified type 74 yo M no prior PMHx except for bilateral knee replacements and R hand fracture s/p surgery who presents for evaluation of recurrent pleural effusion J90 Pleural effusion (primary encounter diagnosis) R70.0 Elevated sed rate R79.82 Elevated C-reactive protein (CRP) Comment: Patient presents with 1 year history of primarily recurrent R pleural effusion which has been moderate/large s/p VATS/pleurodesis/pleural biopsy showing acute organizing pleuritis and chronic pleuritis. No malignancy identified to date. ECHO 03/[address] chest 03/2024 isolated R pleural effusion although CT Abdomen 12/2023 with ?small pelvic/abdominal ascites. Responsive to sporadic courses of prednisone. In this scenario, question raised of underlying rheumatic disease. Overall, initial suspicion for SLE/RA/MCTD/vasculitis is low considering he lacks rest of specific symptoms of these conditions and work up notable for negative GREY/RF/CCP Ab. Would be atypical to have at present unilateral pleural effusion as the sole manifestation. However, I will expand work up as below and next steps based on results. Will discuss case with Pulmonology given new RUL GGO of unclear etiology. I wonder if repeat testing of pleural fluid is needed R19.7 Diarrhea, unspecified type Comment: Patient mentioned at the end of our appointment chronic watery diarrhea of unclear etiology. Will refer to GI for further evaluation. Plan Orders this visit: Office Visit on 03/30/24 GREY BY IFA SCREEN ANTI RAMO ID [id number] COMPLEMENT C4 COMPLEMENT PROTEIN / CREATININE RATIO URINALYSIS, WITH MICROSCOPIC CRITHIDIA LUCILIAE C-REACTIVE PROTEIN COMPLETE BLOOD COUNT AND DIFFERENTIAL COMPREHENSIVE METABOLIC PANEL ANTI NEUTRO CYTO AB BLOOD TB SCREEN CREATINE KINASE/CK CONSULT TO RHEUM/IMMUN DISEASE CONSULT TO GASTROENTEROLOGY Work up as ordered Will hold on initiating immunosuppresive therapy. Can continue HCQ No follow-ups on file. I spent a total of 60 minutes on the date of the service which included preparing to see the patient, [id number] patient care, completing clinical documentation, obtaining and/or reviewing separately obtained history, performing a medically appropriate examination, and counseling and educating the patient/family/caregiver. ___ Steffen Sanchez MD Rheumatology Date: March 31, 2024 Time: 4:33 PM documented in this encounter [facility] 03-17-2024 History of Present illness Narrative Radiology Service Progress Note DATE OF SERVICE: March 17, 2024 TIME: 4:04 PM PATIENT IDENTITY VERIFICATION COMPLETED USING TWO (2) STANDARD IDENTIFIERS: Name and Date of confirmed by patient verbally and Name and Date of confirmed by identification band. FALL SCREENING: Has the patient had 2 falls in the last year or 1 fall with injury or currently using an Ambulatory Assistive Device (Walker, Cane, Wheelchair, Crutches, etc.)? No PATIENT GENDER DATA: Male PATIENT RELEVANT IMPLANT DATA REVIEWED: Not Applicable PATIENT PRESENTS WITH AN IMPLANTABLE OR ATTACHED DIRECTOR REACTOR PROJECTS: No ALLERGIES: Reviewed and unchanged CONTRAST ALLERGY: NO. EXAM: CT -CONTRAST INDUCED NEPHROPATHY RISK FACTORS: Patient age > 60 years CREATININE: Creatinine Date Value Ref Range Status 03/03/2024 1.15 0.73 - 1.22 mg/dL Final 01/24/2024 1.14 0.73 - 1.22 mg/dL Final 01/02/2024 1.06 0.73 - 1.22 mg/dL Final Estimated Glomerular Filtration Rate Date Value Ref Range Status 03/03/2024 68 >=60 mL/min/1.73m Final Comment: Estimated Glomerular Filtration Rate (eGFR) is calculated using the 2020 CKD-EPI creatinine equation. This equation utilizes serum creatinine, sex, and age as parameters. The creatinine assay has traceable calibration to isotope dilution-mass spectrometry. Refer to KDIGO guidelines for clinical interpretation. In patients with unstable renal function, e.g. those with acute kidney injury, the eGFR may not accurately reflect actual GFR. P.O.C.T. RESULTS: N/A March 17, 2024 TREATMENT: N/A PERIPHERAL IV DATA: Ambulatory: A peripheral IV was started in the Right antecubital site with a Angio cath: 22 gauge. RADIOLOGY DEPARTMENT: CT; Exam(s) Completed: Chest SIGNATURE: RT Solitario(R) PATIENT NAME: Sav Raymundo DATE: March 17, 2024 TIME: 4:04 PM documented in this encounter [facility] 03-17-2024 Note HNO ID: [id number] Author: JUAN TELLO RT(Sandee) Service: Radiology Author Type: Process Expert Type: Progress Notes Filed: 03/17/2024 16:04 Note Text: Radiology Service Progress Note DATE OF SERVICE: March 17, 2024 TIME: 4:04 PM PATIENT IDENTITY VERIFICATION COMPLETED USING TWO (2) STANDARD IDENTIFIERS: Name and Date of confirmed by patient verbally and Name and Date of confirmed by identification band. FALL SCREENING: Has the patient had 2 falls in the last year or 1 fall with injury or currently using an Ambulatory Assistive Device (Walker, Cane, Wheelchair, Crutches, etc.)? No PATIENT GENDER DATA: Male PATIENT RELEVANT IMPLANT DATA REVIEWED: Not Applicable PATIENT PRESENTS WITH AN IMPLANTABLE OR ATTACHED DIRECTOR REACTOR PROJECTS: No ALLERGIES: Reviewed and unchanged CONTRAST ALLERGY: NO. EXAM: CT -CONTRAST INDUCED NEPHROPATHY RISK FACTORS: Patient age > 60 years CREATININE: Creatinine Date Value Ref Range Status 03/03/2024 1.15 0.73 - 1.22 mg/dL Final 01/24/2024 1.14 0.73 - 1.22 mg/dL Final 01/02/2024 1.06 0.73 - 1.22 mg/dL Final Estimated Glomerular Filtration Rate Date Value Ref Range Status 03/03/2024 68 >=60 mL/min/1.73m? Final Comment: Estimated Glomerular Filtration Rate (eGFR) is calculated using the 2020 CKD-EPI creatinine equation. This equation utilizes serum creatinine, sex, and age as parameters. The creatinine assay has traceable calibration to isotope dilution-mass spectrometry. Refer to KDIGO guidelines for clinical interpretation. In patients with unstable renal function, e.g. those with acute kidney injury, the eGFR may not accurately reflect actual GFR. P.O.C.T. RESULTS: N/A March 17, 2024 TREATMENT: N/A PERIPHERAL IV DATA: Ambulatory: A peripheral IV was started in the Right antecubital site with a Angio cath: 22 gauge. RADIOLOGY DEPARTMENT: CT; Exam(s) Completed: Chest SIGNATURE: RT Solitario(R) PATIENT NAME: Sav Raymundo DATE: March 17, 2024 TIME: 4:04 PM [facility] 03-17-2024 History of Present illness Narrative Images from the original note were not included. [facility] - OUTPATIENT THORACIC SURGERY CLINIC NOTE PT NAME: Sav Raymundo [facility] NO: [id number] THORACIC SURGEON: Ronaldo Simmons M.D. DATE OF SERVICE: 03/17/2024 PRINCIPAL DX: Pleural Effusion SURGICAL HX 11/20/2023: R VATS pleural biopsy, right mechanic assistant and doxycycline pleurodesis, right Pleurx catheter insertion, right 20Fr chest tube insertion Surgical Pathology: FINAL DIAGNOSIS A. Right pleura, biopsy: - Chronic pleuritis with mesothelial hyperplasia (see comment). B. Right pleura, biopsy: - Acute organizing and chronic pleuritis (see comment). / 11/22/2023 Diagnosis Comment A. The biopsy contains pleural tissue with chronic inflammation and focal reactive mesothelial hyperplasia. An immunohistochemical stain for BAP 1 shows retained nuclear expression of the mesothelial cells. B. The pleura shows areas with extensive granulation tissue associated with reactive mesenchymal mesothelial proliferation. Immunohistochemical stains were performed to exclude the possibility of mesothelial or vascular neoplasm. The mesothelial proliferation is positive for cytokeratin CAM 5.2, cytokeratin AE1/AE3, WT1, and focally for calretinin and smooth muscle actin. The cytokeratin stains do not show extension of the mesothelial proliferation into deeper adjacent tissues. All cells are negative for claudin-4. ERG highlights the vascular network of thin walled vessels arranged mostly perpendicular to the pleural surface. A BAP 1 stain shows retained nuclear expression. PU 1 highlights numerous histiocytes associated with the reactive proliferation. Drs. Della Subramanian and Zeus Azsri have also reviewed this case and agree that there is no definitive evidence of malignancy. Right pleural fluid cytology: FINAL DIAGNOSIS A - Pleural Cavity, Right, Fluid, Thoracentesis - Right pleural fluid Negative for malignant cells. Acute and chronic inflammation. The following cell blocks were associated with this case: A1 Cell Block, Alcohol Fixed REASON FOR VISIT: Post-operative visit HPI: Sav Raymundo is a 73 year old male with a PmHX significant for HTN, hyperlipidemia, gout, GERD. Patient seen 07/2023 for a few months lasting cough. He had a chest CT on 08/15/23 showing moderate R pleural effusion. He had thoracentesis twice on 09/04/23 and 10/01/2023, cytology was negative both times and chemical analysis was consistent with an exudate. The right pleural effusion persists per most recent CT on 10/18/23. He also has a small to moderate pericardial effusion seen on imaging and on ECHO that was done in 09/04/23, otherwise with good cardiac function(pericardial effusion almost completely resolved on last CT). Imaging has also been consistent with small to moderate left pleural effusion that has almost completely resolved on last CT. On 11/20/2023, patient underwent R VATS pleural biopsy, right mechanic assistant and doxycycline pleurodesis, right Pleurx catheter insertion, right 20Fr chest tube insertion. He was hospitalized 12/20/23 for anasarca, possible autoimmune disease, recurrent pleural effusion. Imaging did not reveal any acute findings. Patient was admitted to [facility] and started on lasix drip, improving anasarca and pleural effusion. Pleurx catheter was drained daily with significantly decreasing output [phone]. He was worked up for an autoimmune disease as well. He was discharged on an increased dose of lasix (20mg > 80mg) and started on Plaquenil. PHYSICAL EXAM: VITAL SIGNS: BP 132/78 (BP Site: Left Arm, BP Position: Sitting, BP Cuff Size: Small Adult) Pulse 88 Temp 36.3 C (97.3 F) (Temporal) Resp 16 Ht 177.8 cm (5' 10 ) Wt 94.3 kg (207 lb 14.3 oz) SpO2 98% BMI 29.83 kg/m Room air General appearance: Well appearing, alert, in no acute distress, well-hydrated, well nourished. Skin: Skin color, texture, turgor normal, no suspicious rashes or lesions Lungs: Lungs clear to auscultation. No wheezing, rhonchi, rales Heart: RRR without murmur, gallop, or rubs. No ectopy Abdomen: Normal abdominal exam Extremities: No deformities, edema, skin discoloration, clubbing or cyanosis. Musculoskeletal: No joint swelling, deformity, or tenderness Neuro: Gait normal. Sensation grossly intact. Drain/Tubes: Pleurex Catheter CXR 03/17/2024 INTERVAL HISTORY Adams E Kimberly presents to clinic today for postoperative visit. [facility] RN called in 03/03 reporting increase in output from pleurX. Drainage schedule at that time was switchde to 3x weekly until output slows down. Prednisone course finished, plaquenil increased to BID. Patient with increase in weight and 2+ pitting BLE. Seen by pulmonary today, follow up with rheum 04/13. Patient notes today that his drainage was significantly decreasing while he was on the steroids. It also helped with his cough. Now his cough is back and he coughs to the point of dry heaving. Output has been around 500-700cc, draining every 3 days. He currently denies any chest pain or shortness of breath. IMPRESSION: 73 year old male with pmh significant for recurrent right pleural effusion s/p R VATS pleural biopsy, right mechanic assistant and doxycycline pleurodesis, right Pleurx catheter insertion, right 20Fr chest tube insertion on 11/20/[address] Simmons. He was hospitalized 12/20/23 for anasarca, possible autoimmune disease, and recurrent pleural effusion. Imaging did not reveal any acute findings. Patient was admitted to [facility] and started on lasix drip, with improving anasarca and pleural effusion. Pleurx catheter was drained daily with significantly decreasing output [phone]. He was worked up for an autoimmune disease as well. He was discharged on an increased dose of lasix (20mg > 80mg) and started on Plaquenil. PLAN: - continue draining pleurx every 3 days - call our office if any new or worsening symptoms - follow up with transportation solutions manager 04/13 for their recommendations - discussed with patient to reach out to our office with rheum recommendations, as well as if pleurx output has significantly decreased to discuss removing pleurx Ruma Christina PA-C documented in this encounter [facility] 03-17-2024 Note HNO ID: [id number] Author: RUMA CHRISTINA PA-C Service: ? Author Type: Physician Fruit Tester Type: Progress Notes Filed: 03/17/2024 14:26 Note Text: [facility] - OUTPATIENT THORACIC SURGERY CLINIC NOTE PT NAME: Sav Cantu [facility] NO: [id number] THORACIC SURGEON: Ronaldo Simmons M.D. DATE OF SERVICE: 03/17/2024 PRINCIPAL DX: Pleural Effusion SURGICAL HX 11/20/2023: R VATS pleural biopsy, right mechanic assistant and doxycycline pleurodesis, right Pleurx catheter insertion, right 20Fr chest tube insertion Surgical Pathology: FINAL DIAGNOSIS A. Right pleura, biopsy: - Chronic pleuritis with mesothelial hyperplasia (see comment). B. Right pleura, biopsy: - Acute organizing and chronic pleuritis (see comment). TN/ 11/22/2023 Diagnosis Comment A. The biopsy contains pleural tissue with chronic inflammation and focal reactive mesothelial hyperplasia. An immunohistochemical stain for BAP 1 shows retained nuclear expression of the mesothelial cells. B. The pleura shows areas with extensive granulation tissue associated with reactive mesenchymal mesothelial proliferation. Immunohistochemical stains were performed to exclude the possibility of mesothelial or vascular neoplasm. The mesothelial proliferation is positive for cytokeratin CAM 5.2, cytokeratin AE1/AE3, WT1, and focally for calretinin and smooth muscle actin. The cytokeratin stains do not show extension of the mesothelial proliferation into deeper adjacent tissues. All cells are negative for claudin-4. ERG highlights the vascular network of thin walled vessels arranged mostly perpendicular to the pleural surface. A BAP 1 stain shows retained nuclear expression. PU 1 highlights numerous histiocytes associated with the reactive proliferation. Drs. Della Subramanian and Zeus Hinton have also reviewed this case and agree that there is no definitive evidence of malignancy. Right pleural fluid cytology: FINAL DIAGNOSIS A - Pleural Cavity, Right, Fluid, Thoracentesis - Right pleural fluid Negative for malignant cells. Acute and chronic inflammation. The following cell blocks were associated with this case: A1 Cell Block, Alcohol Fixed REASON FOR VISIT: Post-operative visit HPI: Sav Raymundo is a 73 year old male with a PmHX significant for HTN, hyperlipidemia, gout, GERD. Patient seen 07/2023 for a few months lasting cough. He had a chest CT on 08/15/23 showing moderate R pleural effusion. He had thoracentesis twice on 09/04/23 and 10/01/2023, cytology was negative both times and chemical analysis was consistent with an exudate. The right pleural effusion persists per most recent CT on 10/18/23. He also has a small to moderate pericardial effusion seen on imaging and on ECHO that was done in 09/04/23, otherwise with good cardiac function(pericardial effusion almost completely resolved on last CT). Imaging has also been consistent with small to moderate left pleural effusion that has almost completely resolved on last CT. On 11/20/2023, patient underwent R VATS pleural biopsy, right mechanic assistant and doxycycline pleurodesis, right Pleurx catheter insertion, right 20Fr chest tube insertion. He was hospitalized 12/20/23 for anasarca, possible autoimmune disease, recurrent pleural effusion. Imaging did not reveal any acute findings. Patient was admitted to [facility] and started on lasix drip, improving anasarca and pleural effusion. Pleurx catheter was drained daily with significantly decreasing [id number]. He was worked up for an autoimmune disease as well. He was discharged on an increased dose of lasix (20mg > 80mg) and started on Plaquenil. PHYSICAL EXAM: VITAL SIGNS: BP 132/78 (BP Site: Left Arm, BP Position: Sitting, BP Cuff Size: Small Adult) Pulse 88 Temp 36.3 ?C (97.3 ?F) (Temporal) Resp 16 Ht 177.8 cm (5' 10 ) Wt 94.3 kg (207 lb 14.3 oz) SpO2 98% BMI 29.83 kg/m? Room air General appearance: Well appearing, alert, in no acute distress, well-hydrated, well nourished. Skin: Skin color, texture, turgor normal, no suspicious rashes or lesions Lungs: Lungs clear to auscultation. No wheezing, rhonchi, rales Heart: RRR without murmur, gallop, or rubs. No ectopy Abdomen: Normal abdominal exam Extremities: No deformities, edema, skin discoloration, clubbing or cyanosis. Musculoskeletal: No joint swelling, deformity, or tenderness Neuro: Gait normal. Sensation grossly intact. Drain/Tubes: Pleurex Catheter CXR 03/17/2024 INTERVAL HISTORY Sav Raymundo presents to clinic today for postoperative visit. [facility] RN called in 03/03 reporting increase in output from pleurX. Drainage schedule at that time was switchde to 3x weekly until output slows down. Prednisone course finished, plaquenil increased to BID. Patient with increase in weight and 2+ pitting BLE. Seen by pulmonary today, follow up with rheum 04/13. Patient notes today (more content not included)... [facility] 03-17-2024 Note HNO ID: [id number] Author: WES GOVEA RRT Service: ? Author Type: Registered Resp Therapist Type: Progress Notes Filed: 03/17/2024 13:30 Note Text: PULM FUNCTION: Provider: Louise Douglas MD DLCO: 1 LV - Box: 1 [facility] 03-17-2024 History of Present illness Narrative PULM FUNCTION: Provider: Louise Douglas MD DLCO: 1 LV - Box: 1 documented in this encounter [facility] 03-17-2024 Instructions Louise Douglas MD - 03/17/2024 11:37 AM EDT Seems like a rheumatologic problem, as both cough/fluid gets better with steroids We will get CT chest with contrast, and other breathing tests (DLCO, lung vol), today if possible thoracentesis See Rheumatology as scheduled; we will try to schedule echo on that day - Mar 30 PleurX tube - as per Dr. Simmons's team. Return to clinic end April Dr. Reinaldo Douglas MD Pulmonary and Critical Care Medicine [facility] documented in this encounter [facility] 03-17-2024 Note HNO ID: [id number] Author: LOUISE DOUGLAS MD Service: ? Author Type: Physician Type: Progress Notes Filed: 03/18/2024 08:55 Note Text: Mr. Raymundo is a 74 year old male who presents to the [facility] [place]. Consultation requested by Dr. Meyers and Dr. Ronaldo Simmons. My final recommendations/evaluation will be communicated back to the requesting physician by way of shared medical record or letter via [place] mail. This note was partially created using Dragon? Voice recognition software and is inherently subject to errors including those of syntax and ?sound-alike? substitutions which may escape proofreading. In such instances, original meaning may be extrapolated by contextual derivation. HPI on March 17, 2024: Sav Raymundo is a gentleman in his 70s, presenting to the pulmonary clinic, for chronic cough and recurrent right-sided pleural effusion s/p R-VATS pleural biopsy, right mechanic assistant and doxycycline pleurodesis, right Pleurx catheter insertion, on 12/10/2023. Mr. Kumar presents with an interesting history. He is a semiretired gentleman from the [facility], with virtually no past medical history, very active, started having issues since last year in March 2023. He presented with a bout of coughing, was treated by his primary care physician with a Z-Tanner with little effect. In the next few months his cough got worse, but with no significant dyspnea, and the cough was dry. He was treated with prednisone with excellent effect. In June 2023-he was given prednisone again, and he went on a cruise, and once the prednisone was finished his cough came back. Throughout the next few months he has been on prednisone off-and-on, and every time he has been on prednisone the cough has completely resolved. Due to his persistent coughing bouts, an x-ray was obtained, which showed right-sided pleural effusion, and he was referred to a local social work instructor. He underwent thoracentesis several times, each time pleural fluid analysis showed exudative fluid. CT scan was obtained locally which did not reveal much except pleural effusion. CT scan also shows pericardial effusion. He was then referred by his local social work instructor to [facility] for a pleurodesis. In November 2023, he underwent VATS pleurodesis (mechanical and doxycycline), with pleural biopsy, and the Pleurx catheter was also placed. Analysis of the pleural fluid and biopsies of the pleura showed acute and chronic pleuritis with organization, but no malignancy. We do not have pleural fluid chemical or hematological analysis done in [facility], but cytology was negative for malignant cells. He was discharged with Pleurx catheter, and and has been draining pleural fluid about 500 to 800 mL every other day. And his dry cough has also been persistent. In December 2023, he was sent to [facility] after seeing thoracic surgery ADRIENNE for anasarca, and was admitted. His abdomen and subcutaneous tissues especially in his legs were swollen, no ascites found, but significant skin edema including blisters were seen. He improved with Lasix drip, was evaluated by rheumatology, and so far his serologies have been negative, but he has been placed on a dose of hydroxychloroquine. So far the effect of hydroxychloroquine has not been much. He is scheduled to see rheumatology in [facility] in the next 2 weeks. Of note he has been on prednisone on and off for the whole month of January, and the effect has been noticeable is not dramatic -cough completely resolves, pleural fluid drainage decreases to about 100 mL per session. But interestingly, he reports no symptoms that can be attributed to connective tissue disease. PULM ROS: Negative for symptoms of sarcoidosis - lymphadenopathy; eye redness, floatters, blurry vision; SOB, cough, palpitations; syncope, lightheadedness; skin rash; tingling, numbness sensation on feet and/or hand; SICCA symptoms; sinus symptoms, nasal crusting; history of nephrolithiasis; arthritis, From a cardiopulmonary standpoint, mild notes dyspnea with activities such as exertion. This has not been progressive over the last 1 year. He has cough but no wheeze and there is no history of hemoptysis. He denies near syncope, syncope, chest pain, palpitations, PND, orthopnea but has significant lower extremity edema. From a rheumatologic standpoint,-negative review of systems he has dry eyes, but negative for dry mouth, oral/nasal ulcers, gastroesophageal reflux, joint pain or swelling, muscle pain or weakness, change in skin texture, rash or skin lesions, photosensitivity, alopecia, Raynaud phenomenon or digital ulcers. There is no family history for CTD. From an interstitial lung disease standpoint, there is no occupational, medication or environmental exposures. There is no family history for interstitial lung disease. From a pulmonary hypertension standpoint, no denies a history of c (more content not included)... [facility] 03-17-2024 History of Present illness Narrative Images from the original note were not included. Mr. Raymundo is a 74 year old male who presents to the [facility] [place]. Consultation requested by Dr. Meyers and Dr. Ronaldo Simmons. My final recommendations/evaluation will be communicated back to the requesting physician by way of shared medical record or letter via [place] mail. This note was partially created using [employer] Voice recognition software and is inherently subject to errors including those of syntax and sound-alike substitutions which may escape proofreading. In such instances, original meaning may be extrapolated by contextual derivation. HPI on March 17, 2024: Sav Raymundo is a gentleman in his 70s, presenting to the pulmonary clinic, for chronic cough and recurrent right-sided pleural effusion s/p R-VATS pleural biopsy, right mechanic assistant and doxycycline pleurodesis, right Pleurx catheter insertion, on 12/10/2023. Mr. Kumar presents with an interesting history. He is a semiretired gentleman from the [employer], with virtually no past medical history, very active, started having issues since last year in March 2023. He presented with a bout of coughing, was treated by his primary care physician with a Z-Tanner with little effect. In the next few months his cough got worse, but with no significant dyspnea, and the cough was dry. He was treated with prednisone with excellent effect. In June 2023-he was given prednisone again, and he went on a cruise, and once the prednisone was finished his cough came back. Throughout the next few months he has been on prednisone off-and-on, and every time he has been on prednisone the cough has completely resolved. Due to his persistent coughing bouts, an x-ray was obtained, which showed right-sided pleural effusion, and he was referred to a local social work instructor. He underwent thoracentesis several times, each time pleural fluid analysis showed exudative fluid. CT scan was obtained locally which did not reveal much except pleural effusion. CT scan also shows pericardial effusion. He was then referred by his local social work instructor to [facility] for a pleurodesis. In November 2023, he underwent VATS pleurodesis (mechanical and doxycycline), with pleural biopsy, and the Pleurx catheter was also placed. Analysis of the pleural fluid and biopsies of the pleura showed acute and chronic pleuritis with organization, but no malignancy. We do not have pleural fluid chemical or hematological analysis done in [facility], but cytology was negative for malignant cells. He was discharged with Pleurx catheter, and and has been draining pleural fluid about 500 to 800 mL every other day. And his dry cough has also been persistent. In December 2023, he was sent to [facility] after seeing thoracic surgery ADRIENNE for anasarca, and was admitted. His abdomen and subcutaneous tissues especially in his legs were swollen, no ascites found, but significant skin edema including blisters were seen. He improved with Lasix drip, was evaluated by rheumatology, and so far his serologies have been negative, but he has been placed on a dose of hydroxychloroquine. So far the effect of hydroxychloroquine has not been much. He is scheduled to see rheumatology in [facility] in the next 2 weeks. Of note he has been on prednisone on and off for the whole month of January, and the effect has been noticeable is not dramatic -cough completely resolves, pleural fluid drainage decreases to about 100 mL per session. But interestingly, he reports no symptoms that can be attributed to connective tissue disease. PULM ROS: Negative for symptoms of sarcoidosis - lymphadenopathy; eye redness, floatters, blurry vision; SOB, cough, palpitations; syncope, lightheadedness; skin rash; tingling, numbness sensation on feet and/or hand; SICCA symptoms; sinus symptoms, nasal crusting; history of nephrolithiasis; arthritis, From a cardiopulmonary standpoint, mild notes dyspnea with activities such as exertion. This has not been progressive over the last 1 year. He has cough but no wheeze and there is no history of hemoptysis. He denies near syncope, syncope, chest pain, palpitations, PND, orthopnea but has significant lower extremity edema. From a rheumatologic standpoint,-negative review of systems he has dry eyes, but negative for dry mouth, oral/nasal ulcers, gastroesophageal reflux, joint pain or swelling, muscle pain or weakness, change in skin texture, rash or skin lesions, photosensitivity, alopecia, Raynaud phenomenon or digital ulcers. There is no family history for CTD. From an interstitial lung disease standpoint, there is no occupational, medication or environmental exposures. There is no family history for interstitial lung disease. From a pulmonary hypertension standpoint, no denies a history of congenital heart disease, lung disease, heart disease, sleep-disordered breathing, connective tissue disease, liver disease, HIV, diet drug use, illicit drug use, hemoglobinopathy, splenectomy, sarcoidosis, clotting disorder or history of pulmonary embolism. There is no family history for PAH. Respiratory ROS: BROOKS: Minimal at baseline, Orthopnea: no at baseline, PND: no at baseline, Pedal Edema: Present at baseline, now improved Weight: Improved Cough: See HPI, persistent at baseline, Nocturnal awakenings: No at baseline, Sputum: Clear mucus GERD: No MAU: No Home O2: No Vaccines: current except flu shot PMH:pleural effusion, ?fluid overload/CHF?, chronic cough - local PCP, has [facility] PCP, Dr. 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 Past Medical History: PAST MEDICAL HISTORY Diagnosis Date GERD (gastroesophageal reflux disease) History of basal cell cancer left shoulder Mixed hyperlipidemia Osteoarthritis of multiple joints Pleural effusion, right s/p Thoracentesis 10/01/23 = 520 cc, 625 cc Past Surgical History: PAST SURGICAL HISTORY Procedure Laterality Date ANESTH OPEN/SURG ARTHRS TOTAL KNEE ARTHROPLASTY Left 08/23/2014 ARTHROSCOPY KNEE DIAGNOSTIC W/WO SYNOVIAL BX SPX Left 2010 ORTHOPEDIC SURGERY HX Right Hand PAST SURGICAL HISTORY OF Left 11/2014 Shoulder -BASAL CELL CARCINOMA EXCISION TOTAL KNEE REPLACEMENT Right 06/25/2016 Work and Social Histories: Social History Tobacco Use Smoking status: Never Smokeless tobacco: Never Substance Use Topics Alcohol use: Yes Comment: socially, no drink since 06/2023 Drug use: Never Family History: FAMILY HISTORY Problem Relation Age of Onset Heart Father Allergies: Tramadol Outpatient Medications: [id number] ORAL Take by mouth. diclofenac (VOLTAREN) 1 % topical gel furosemide (LASIX) 80 mg tablet Take 1 tablet by mouth once daily. furosemide (LASIX) 40 mg tablet Take 1 tablet by mouth once daily. At 2 pm hydrOXYchloroQUINE (PLAQUENIL) 200 mg tablet Take 1 tablet by mouth two times a day. potassium chloride ER (KLOR-CON) 20 mEq tablet Take 1 tablet by mouth three times a day. acetaminophen (TYLENOL) 500 mg tablet Take 2 tablets by mouth every 6 hours. allopurinol (ZYLOPRIM) 300 mg tablet Take 300 mg by mouth once daily. atorvastatin (LIPITOR) 10 mg tablet Take 1 tablet by mouth once daily. omeprazole (PRILOSEC) 20 mg capsule Take 20 mg by mouth once daily. iv contrast (will be provided with radiology test) CT Chest W -Inject, intravenously, once for 1 dose.No IV access, insert saline lock prior to the beginning of sedation, infusion, injection of imaging exam. Discontinue saline lock post exam. If Pt. has a central line or IVAD, may access for administration according to line specific nursing protocol. Once exam is complete flush line and de-access according to line specific nursing protocol in the CT contrast administration guidelines link. amoxicillin (AMOXIL) 500 mg capsule magnesium oxide (MAG-OX) 400 mg (241.3 mg magnesium) tablet Take 1 tablet by mouth two times a day. (Patient not taking: Reported on 03/17/2024) predniSONE (DELTASONE) 10 mg tablet Take 1 tablet by mouth as directed. Prednisone 10 mg 2 tabs tid x 5 days,2 tabs bid x 5 days,3 tabs daily x 5 days,2 tabs daily x 5 days,1 tab daily x 5 days,1/2 daily x 4 days and stip (Patient not taking: Reported on 03/17/2024) calcium carbonate (OS-ELIZABETH 500) 500 mg calcium (1,250 mg) tablet Take 1 tablet by mouth two times a day. (Patient not taking: Reported on 03/17/2024) ipratropium-albuterol (DUONEB) 0.5 mg-3 mg(2.5 mg base)/3 mL nebu Inhale 3 mL as instructed every 6 hours as needed for wheezing/shortness of breath. (Patient not taking: Reported on 03/17/2024) Pain today: Mr. Raymundo is not having pain related to the reason for this visit. PHYSICAL EXAM: Physical Exam BP 126/84 Pulse 82 Wt 205 lb (93.0kg) SpO2 98% edema GEN: Alert, oriented x 3, NAD, speaking in full sentences HEENT: PERRL, EOMI, mouth and oropharynx clear, nares patent CHEST: lungs reduced breath sounds bilaterally, poor air exchange on the right base, no wheeze / rales / rhonchi, on visual inspection no chest wall deformities and chest excursion normal, no chest discomfort on palpation, close catheter in place HEART: RRR, no murmurs / rubs/ gallops auscultated, no heaves / lifts by palpation ABD: Soft, non-distended, non-tender EXT: No edema, clubbing or cyanosis NEURO: CN II - XII grossly intact with no focal deficits Labs / Imaging / Diagnostic Studies: All radiography listed below personally reviewed by me Data Reviewed from [facility] (in addition to that noted in HPI, and Past histories above): CMP, CBC Testing data, personally reviewed and interpreted by me: PFT, Imaging, Labs, CVS data. Assessment: Sav Raymundo is a 74 year old male presents for evaluation/follow-up of: for chronic cough and recurrent right-sided pleural effusion s/p R-VATS pleural biopsy, right mechanic assistant and doxycycline pleurodesis, right Pleurx catheter insertion, on 12/10/2023. On detailed clinical evaluation and review of all available data: Sav Raymundo seems to have a steroid responsive disease characterized by right-sided pleural effusion and chronic dry cough. The presentation seems consistent with connective tissue disease: - excellent response to steroids/prednisone (cough resolves, pleural effusion drainage by Pleurx decreases dramatically to around 100 mL) -Associated pericardial effusion, seen on July 2023 CT scan OSH, now resolved -Cytology and pathology shows exudative effusion, acute and chronic pleuritis, no malignancy. 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 We will hold off on steroids currently, because he is following up with rheumatology, and we anticipate that he will get a rigorous rheumatologic workup. We will repeat a CT chest with contrast, complete a full set of PFTs, also repeat and check an echo, and follow-up in 6-weeks after rheumatology evaluation. Testing data, personally reviewed and interpreted by me: PFT: 03/2024 - FENO 13, normal marcia, FEV1 80%, DLCO 85% normal, lung vol mild restriction, TLC 67%, -likely from pleural effusion? Imagin2023 CT OSH 2023 - Rt pleural effusion, pericardial effusion seen in July 2023 CT scan CXR - right pleural effusion 10/2023 NM amyloid - neg, rt 7th rip lat, +ve uptake 12/2023 CT abd/pel - sub-cut edema 03/17/2024 CT chest with contrast: Official report pending, my review, pleural effusion right side, at this and atelectasis, vascular structures in the lung are not prominent, no lymphadenopathy, no large nodules, pulmonary artery looks generous Labs: NTproBNP 464, neg rheum work up so far Path: Pleura, biopsy. 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 Simmons's team. Return to clinic end April Addendum: 03/17/2024 CT chest with contrast: Official report pending, my review, pleural effusion right side, at this and atelectasis, vascular structures in the lung are not prominent, no lymphadenopathy, no large nodules, pulmonary artery looks generous PFT: DLCO 85% normal, lung vol mild restriction, TLC 67%, -likely from pleural effusion? Echo pending-scheduled on March 26 Sav Raymundo understands the plan and discussion and is comfortable with it. I spent a total of 44 minutes on the date of the service which included preparing to see the patient, [id number] patient care, completing clinical documentation, obtaining and/or reviewing separately obtained history, performing a medically appropriate examination, counseling and educating the patient/family/caregiver, ordering medications, tests, or procedures, independently interpreting results (not separately reported), and care coordination (not separately reported). Louise Douglas MD documented in this encounter [facility] 03-17-2024 Nurse Note Sav Raymundo is a very pleasant 74 year old male who presents today for pleural effusion (November 19), still has chest drainage tube Pleurex tube After surgery, fluid still gathering around right lung. Last seen by Pulmonary Doctor? Dr. Gotti in [facility]. Outside of [facility]. Is Dr. Douglas on Care Team as Legal Analyst? no Meds reviewed - Refills pended?no Since last seen Have you had any resp illnessses, COVID, exacerbations or recent visits to ER?hospital/Urgent-Care? [place] December 19 x 1 week, Vaccines: Immunization History Administered Date(s) Administered COVID-19 original vaccine, age 12+ yr, monovalent (SpineForm-Quantifeed - PURPLE TOP) 08/15/2020 08/22/2020 09/13/2020 05/10/2021 influenza (aIIV3) vaccine, age 65+ yr, trivalent, PF (FLUAD) 05/09/2020 pneumococcal conjugate (PCV13) vaccine, 13 valent (PREVNAR 13) 11/26/2016 pneumococcal polysaccharide (PPV23) vaccine, 23 valent (PNEUMOVAX 23) 02/03/2018 tetanus diphtheria (Td) vaccine, age 7+ yr, 5 Lf tetanus, PF (TENIVAC) 06/04/2018 08/30/2018 zoster (RZV) vaccine, recombinant (SHINGRIX) 08/30/2018 Modified Medical Research [place] Dyspnea Scale (MMRC) I stop for breath after walking about 100 yards or after a few minutes on level ground 3 Patient Entered Questionnaires 10/23/2023 PROMIS Global Health - (T-Scores - the mean of general population = 50. Five points is a clinically meaningful difference.) Physical T-Score 44.9 Mental T-Score 43.5 [facility] 03-17-2024 Nurse Note Sav Raymundo is a very pleasant 74 year old male who presents today for pleural effusion (November 19), still has chest drainage tube Pleurex tube After surgery, fluid still gathering around right lung. Last seen by Pulmonary Doctor? Dr. Gotti in [facility]. [facility] of [facility] Is Dr. Douglas on Care Team as Legal Analyst? no Meds reviewed - Refills pended?no Since last seen Have you had any resp illnessses, COVID, exacerbations or recent visits to ER?hospital/Urgent-Care? [place] December 19 x 1 week, Vaccines: Immunization History Administered Date(s) Administered COVID-19 original vaccine, age 12+ yr, monovalent (SpineForm-Quantifeed - PURPLE TOP) 08/15/2020 08/22/2020 09/13/2020 05/10/2021 influenza (aIIV3) vaccine, age 65+ yr, trivalent, PF (FLUAD) 05/09/2020 pneumococcal conjugate (PCV13) vaccine, 13 valent (PREVNAR 13) 11/26/2016 pneumococcal polysaccharide (PPV23) vaccine, 23 valent (PNEUMOVAX 23) 02/03/2018 tetanus diphtheria (Td) vaccine, age 7+ yr, 5 Lf tetanus, PF (TENIVAC) 06/04/2018 08/30/2018 zoster (RZV) vaccine, recombinant (SHINGRIX) 08/30/2018 Modified Medical Research [place] Dyspnea Scale (MMRC) I stop for breath after walking about 100 yards or after a few minutes on level ground 3 Patient Entered Questionnaires 10/23/2023 PROMIS Global Health - (T-Scores - the mean of general population = 50. Five points is a clinically meaningful difference.) Physical T-Score 44.9 Mental T-Score 43.5 documented in this encounter [facility] 03-17-2024 History of Present illness Narrative Radiology Service Progress Note PATIENT NAME: Sav Raymundo DATE OF SERVICE: March 17, 2024 TIME: 8:38 AM PATIENT IDENTITY VERIFICATION COMPLETED USING TWO (2) IDENTIFIERS: Name and Date of confirmed by patient verbally. FALL SCREENING: Has the patient had 2 falls in the last year or 1 fall with injury or currently using an Ambulatory Assistive Device (Walker, Cane, Wheelchair, Crutches, etc.)? No PATIENT GENDER DATA: Male PATIENT RELEVANT IMPLANT DATA REVIEWED: Not Applicable PATIENT PRESENTS WITH AN IMPLANTABLE OR ATTACHED DIRECTOR REACTOR PROJECTS: N/A RADIOLOGY DEPARTMENT: General X-ray: Exam(s) Completed: Chest X-Ray PERIPHERAL IV DATA: Not applicable SIGNED BY: Lilia CANTU(R) March 17, 2024 8:38 AM documented in this encounter [facility] 03-17-2024 Note HNO ID: [id number] Author: ALAN DELGADO RT (R) Service: Radiology Author Type: Technologist Type: Progress Notes Filed: 03/17/2024 08:38 Note Text: Radiology Service Progress Note PATIENT NAME: Sav Raymundo DATE OF SERVICE: March 17, 2024 TIME: 8:38 AM PATIENT IDENTITY VERIFICATION COMPLETED USING TWO (2) IDENTIFIERS: Name and Date of confirmed by patient verbally. FALL SCREENING: Has the patient had 2 falls in the last year or 1 fall with injury or currently using an Ambulatory Assistive Device (Walker, Cane, Wheelchair, Crutches, etc.)? No PATIENT GENDER DATA: Male PATIENT RELEVANT IMPLANT DATA REVIEWED: Not Applicable PATIENT PRESENTS WITH AN IMPLANTABLE OR ATTACHED DIRECTOR REACTOR PROJECTS: N/A RADIOLOGY DEPARTMENT: General X-ray: Exam(s) Completed: Chest X-Ray PERIPHERAL IV DATA: Not applicable SIGNED BY: Lilia CANTU(R) March 17, 2024 8:38 AM [facility] 03-17-2024 Note HNO ID: [id number] Author: CHELSY CADENA RRT Service: ? Author Type: Registered Resp Therapist Type: Progress Notes Filed: 03/17/2024 08:16 Note Text: PULM FUNCTION: Provider: Katerina Adler APRN.CNP Spirometry: 1 Exhaled Nitric Oxide: 1 [facility] 03-17-2024 History of Present illness Narrative PULM FUNCTION: Provider: Katerina Adler APRN.CNP Spirometry: 1 Exhaled Nitric Oxide: 1 documented in this encounter [facility] 03-17-2024 Note HNO ID: [id number] Author: CHELSY CADENA RRT Service: ? Author Type: Registered Resp Therapist Type: Procedures Filed: 03/17/2024 08:16 Note Text: RESPIRATORY THERAPY ORAL EXHALED NITRIC OXIDE SERVICE DATE: 03/17/2024 SERVICE TIME: 8:16 AM Oral Exhaled Nitric Oxide measurement: 13.0 (ppb) Normal: Adult <25 ppb, pediatric (<12 years) <20 ppb High Normal / Increased: Adult 25-50 ppb, pediatric (<12 years) 20-35 ppb Moderately raised exhaled Nitric Oxide may indicate underlying inflammation, but note that: Cold and influenza can raise exhaled Nitric Oxide and some patients have higher baseline exhaled Nitric Oxide levels than others. High: Adult >50 ppb, pediatric (<12 years) >35 ppb Indicative of ongoing eosinophilic inflammation. Symptomatic patient likely to respond to steroids. Possible causes (if already on steroids): Poor compliance, recent allergen exposure, steroid dose inadequate, and steroid resistance. Note that not all patients with high exhaled nitric oxide levels display symptoms. Oral Exhaled Nitric Oxide measurement (Previous Encounters) Test Date Oral Exhaled Nitric Oxide (ppb) 03/17/2024 13.0 NAME: Chelsy Cadena RRT PATIENT NAME: Sav Raymundo DATE: March 17, 2024 TIME: 8:16 AM [facility] 03-17-2024 Procedure note Associated Ord er(s): NITRIC OXIDE, EXHALED RESPIRATORY THERAPY ORAL EXHALED NITRIC OXIDE SERVICE DATE: 03/17/2024 SERVICE TIME: 8:16 AM Oral Exhaled Nitric Oxide measurement: 13.0 (ppb) Normal: Adult <25 ppb, pediatric (<12 years) <20 ppb High Normal / Increased: Adult 25-50 ppb, pediatric (<12 years) 20-35 ppb Moderately raised exhaled Nitric Oxide may indicate underlying inflammation, but note that: Cold and influenza can raise exhaled Nitric Oxide and some patients have higher baseline exhaled Nitric Oxide levels than others. High: Adult >50 ppb, pediatric (<12 years) >35 ppb Indicative of ongoing eosinophilic inflammation. Symptomatic patient likely to respond to steroids. Possible causes (if already on steroids): Poor compliance, recent allergen exposure, steroid dose inadequate, and steroid resistance. Note that not all patients with high exhaled nitric oxide levels display symptoms. Oral Exhaled Nitric Oxide measurement (Previous Encounters) Test Date Oral Exhaled Nitric Oxide (ppb) 03/17/2024 13.0 NAME: Chelsy Cadena RRT PATIENT NAME: Sav Raymundo DATE: March 17, 2024 TIME: 8:16 AM T [facility] 03-17-2024 Procedure note Associated Ord er(s): NITRIC OXIDE, EXHALED RESPIRATORY THERAPY ORAL EXHALED NITRIC OXIDE SERVICE DATE: 03/17/2024 SERVICE TIME: 8:16 AM Oral Exhaled Nitric Oxide measurement: 13.0 (ppb) Normal: Adult <25 ppb, pediatric (<12 years) <20 ppb High Normal / Increased: Adult 25-50 ppb, pediatric (<12 years) 20-35 ppb Moderately raised exhaled Nitric Oxide may indicate underlying inflammation, but note that: Cold and influenza can raise exhaled Nitric Oxide and some patients have higher baseline exhaled Nitric Oxide levels than others. High: Adult >50 ppb, pediatric (<12 years) >35 ppb Indicative of ongoing eosinophilic inflammation. Symptomatic patient likely to respond to steroids. Possible causes (if already on steroids): Poor compliance, recent allergen exposure, steroid dose inadequate, and steroid resistance. Note that not all patients with high exhaled nitric oxide levels display symptoms. Oral Exhaled Nitric Oxide measurement (Previous Encounters) Test Date Oral Exhaled Nitric Oxide (ppb) 03/17/2024 13.0 NAME: Chelsy Cadena, YAZMIN PATIENT NAME: Sav Raymundo DATE: March 17, 2024 TIME: 8:16 AM documented in this encounter [facility] 03-03-2024 Telephone encounter Note Images from the original note were not included. [facility] [place] Phone Encounter DATE of SERVICE: 03/03/2024 TIME of SERVICE: 10:56 AM Status: FYI Service/Provider: Thoracic Surgery Ronaldo Simmons M.D. Reason for call: Other Issue Contact information: [phone] Resolution: Sent to in[employer]ong[employer]hong Comments: Please call [facility]AN Campos back at [phone]. Wes Lorenzana RN Date of Resolution: 03/03/2024 Time of Resolution 10:56 AM [facility] 03-03-2024 Miscellaneous Notes Images from the original note were not included. [facility] [place] Phone Encounter DATE of SERVICE: 03/03/2024 TIME of SERVICE: 10:56 AM Status: I Service/Provider: Thoracic Surgery Ronaldo Simmons M.D. Reason for call: Other Issue Contact information: [phone] Resolution: Sent to [employer] Comments: Please call [facility] back at [phone]. Wes Lorenzana RN Date of Resolution: 03/03/2024 Time of Resolution 10:56 AM documented in this encounter [facility] 03-03-2024 Telephone encounter Note Beth [facility] called back. Please give call when able. [facility] 03-03-2024 Miscellaneous Notes Beth [facility] called back. Please give call when able. Returned [facility] Beth GORDON's phone call. States patient's pleurx output is increasing. She continues to drain pleurx twice/week. She drained 800 cc yesterday. She also notes that patient has 2+ pitting BLE edema and weight is up to 211 lbs. He is also becoming full easily, but does not have abdominal swelling. She also states his cough is back. Prednisone course was completed 2 weeks ago and plaquenil increased to BID. States she also has been trying to get in touch to Dr. Meyers's office to update him. Instructed [facility] RN to increase draining to three times weekly until output slows back down. Instructed to have patient call Dr. Meyers's office to schedule an appointment for evaluation of worsening edema and weight gain. Tita Landry APRN.CNP 03/03/2024 10:46 AM Beth from [facility] [phone] She wanted to speak with Tita Rodriguez CNP. documented in this encounter [facility] 03-03-2024 Telephone encounter Note Returned [facility] Beth GORDON's phone call. States patient's pleurx output is increasing. She continues to drain pleurx twice/week. She drained 800 cc yesterday. She also notes that patient has 2+ pitting BLE edema and weight is up to 211 lbs. He is also becoming full easily, but does not have abdominal swelling. She also states his cough is back. Prednisone course was completed 2 weeks ago and plaquenil increased to BID. States she also has been trying to get in touch to Dr. Meyers's office to update him. Instructed [facility] RN to increase draining to three times weekly until output slows back down. Instructed to have patient call Dr. Meyers's office to schedule an appointment for evaluation of worsening edema and weight gain. Tita Landry APRN.CURT 03/03/2024 10:46 AM [facility] 03-03-2024 Telephone encounter Note Beth from [facility] [phone] She wanted to speak with Tita Rodriguez CNP. [facility] 02-21-2024 Telephone encounter Note spoke with [facility] RN Beth , pt notes he has some internal discomfort randomly since Saturday - this is new. and want to send updates on this (output 700cc straw/awilda ) Saturday 02/17 and drainage today Tuesday 02/20 (drainage 575cc - awilda). Mild SOB remains the same and no increase. abdominal edema is good, 1+ edema in LE. (1375 total for the week) Last week (1050 cc out) Prednisone stopped last week. saw rheumatology 02/11 plaquenil increased to BID from DAILY - await response Next week Saturday and drainage. Pt is aware of the need to go to the ED if SOB (pt/family is unwilling to drain pleurex at home on their own) [phone] [facility] RN. will review updates above with ATTORNEY LAW CLERK/MD and await any updates appt with dorita and margaret 03/17 and mamta 04/13 for followup Patricia Bermudez RN [facility] 02-21-2024 Miscellaneous Notes spoke with [facility] RN Beth , pt notes he has some internal discomfort randomly since Saturday - this is new. and want to send updates on this (output 700cc straw/awilda ) Saturday 02/17 and drainage today Tuesday 02/20 (drainage 575cc - awilda). Mild SOB remains the same and no increase. abdominal edema is good, 1+ edema in LE. (1375 total for the week) Last week (1050 cc out) Prednisone stopped last week. saw rheumatology 02/11 plaquenil increased to BID from DAILY - await response Next week Saturday and drainage. Pt is aware of the need to go to the ED if SOB (pt/family is unwilling to drain pleurex at home on their own) PH [phone] [facility] RN. will review updates above with CURT/ and await any updates appt with dorita and margaret 03/17 and mamta 04/13 for followup Patricia Bermudez RN documented in this encounter [facility] 02-12-2024 History of Present illness Narrative PROGRESS NOTES Patient Name: Sav Raymundo SERVICE DATE: 02/12/2024 SERVICE TIME: 11:22 AM HPI: Mr. Raymundo is a 73 year old male who presents for Breathing Problem (Pleural Effusion on the right) and Medication Follow-up.Pleural effusion drained 300-450 ml every 2-3 days.Good energy MEDICATIONS: Current Outpatient Medications Medication Sig Dispense Refill diclofenac (VOLTAREN) 1 % topical gel amoxicillin (AMOXIL) 500 mg capsule Take 4 capsules one hour prior to dental procedure/cleaning . magnesium oxide (MAG-OX) 400 mg (241.3 mg magnesium) tablet Take 1 tablet by mouth two times a day. 60 tablet 0 predniSONE (DELTASONE) 10 mg tablet Take 1 tablet by mouth as directed. Prednisone 10 mg 2 tabs tid x 5 days,2 tabs bid x 5 days,3 tabs daily x 5 days,2 tabs daily x 5 days,1 tab daily x 5 days,1/2 daily x 4 days and stip 82 tablet 0 potassium chloride ER (KLOR-CON) 20 mEq tablet Take 1 tablet by mouth three times a day. 270 tablet 0 calcium carbonate (OS-ELIZABETH 500) 500 mg calcium (1,250 mg) tablet Take 1 tablet by mouth two times a day. 180 tablet 0 acetaminophen (TYLENOL) 500 mg tablet Take 2 tablets by mouth every 6 hours. allopurinol (ZYLOPRIM) 300 mg tablet Take 300 mg by mouth once daily. atorvastatin (LIPITOR) 10 mg tablet Take 1 tablet by mouth once daily. omeprazole (PRILOSEC) 20 mg capsule Take 20 mg by mouth once daily. furosemide (LASIX) 80 mg tablet Take 1 tablet by mouth once daily. 90 tablet 0 furosemide (LASIX) 40 mg tablet Take 1 tablet by mouth once daily. At 2 pm 90 tablet 0 hydrOXYchloroQUINE (PLAQUENIL) 200 mg tablet Take 1 tablet by mouth every afternoon. 90 tablet 0 ipratropium-albuterol (DUONEB) 0.5 mg-3 mg(2.5 mg base)/3 mL nebu Inhale 3 mL as instructed every 6 hours as needed for wheezing/shortness of breath. 360 mL 0 No current facility-administered medications for this visit. REVIEW OF SYSTEMS GENERAL: Negative for malaise, significant weight loss and fever HEENT: Negative for frequent or significant headaches, significant changes in vision or vision problems, significant ear problems or hearing loss, nasal discharge or nose bleeds and sore throat, difficulty swallowing, mouth lesions NECK: Negative for goiter, pain and significant neck swelling RESPIRATORY: Negative for cough, wheezing and shortness of breath CARDIOVASCULAR: Negative for chest pain, leg swelling and palpitations GASTROINTESTINAL: Negative for abdominal discomfort, blood in stools or black stools, and change in stool. GENITOURINARY: Negative for dysuria, frequency and incontinence MUSCULOSKELETAL: Negative for joint pain or swelling, back pain, and muscle pain. NEUROLOGIC: Negative for focal numbness or weakness, headaches and dizziness. SKIN: Negative for lesions, rash, and itching. PSYCHIATRIC: Negative for sleep disturbance, mood disorder and recent psychosocial stressors. HEMATOLOGIC/LYMPHATIC/IMMUNOLOGIC: Negative for prolonged bleeding, bruising easily, and swollen nodes. ENDOCRINE: Negative for cold or heat intolerance, polyuria, polydipsia and goiter. PHYSICAL EXAMINATION: BP 108/78 Pulse 86 Temp 98.6 Resp 18 Ht 6' 0 (1.83m) Wt 204 lb (92.5kg) SpO2 98% BMI 27.66 kg/(m^2). General appearance: Overweight, healthy, cooperative, in no acute distress, alert Skin: Skin color, texture, turgor normal. No rashes or lesions. Head: Normocephalic. No masses, lesions, tenderness or abnormalities Eyes: conjunctivae/corneas clear. PERRL, EOM's intact. Ears: External ears normal. Canals clear. TM's normal. Nose/Sinuses: Nares normal. Septum midline. Mucosa normal. No drainage or sinus tenderness. Oropharynx: Lips, mucosa, and tongue normal. Teeth and gums normal. Oropharynx normal. Neck: Neck supple, no adenopathy; thyroid symmetric, normal size Back: Back symmetric, no curvature. ROM normal. No CVA tenderness. Lungs: Percussion normal. Good diaphragmatic excursion. Lungs clear to auscultation.+Pleurax catheter Heart: Stanford normal. Precordium quiet. RRR. Normal HS with no murmurs.. Abdomen: Abdomen soft, non-tender. BS normal. No masses, organomegaly Extremities: Normal exam of the extremities, Extremities normal. No deformities, edema, or skin discoloration Musculoskeletal: Spine ROM normal. Muscular strength intact. Peripheral pulses: normal, capilliary refill <2secs, strong peripheral pulses Neuro: Gait normal. Reflexes normal and symmetric. Sensation grossly intact. ASSESSMENT/PLAN: 1. Recurrent 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 - ICD9: 511.9, ICD10: J90 (primary diagnosis) - FUROSEMIDE 80 MG TABLET - FUROSEMIDE 40 MG TABLET - HYDROXYCHLOROQUINE 200 MG TABLET - Will see a transportation solutions manager on 04/13/2024 2. Primary hypertension - ICD9: 401.9, ICD10: I10 - Controlled - Continue current medications - Recommend home blood pressure monitoring, to bring results to next visit - Encouraged sodium restriction, DASH or Mediterranean diet - Recommend regular aerobic exercise - Discussed need for and benefit of weight loss. BMI 27.67 kg/(m^2) - COMPLETE BLOOD COUNT - BASIC METABOLIC PANEL - MAGNESIUM 3. Pleural effusion - ICD9: 511.9, ICD10: J90 - HYDROXYCHLOROQUINE 200 MG TABLET 4. Chronic cough - ICD9: 786.2, ICD10: R05.3 - Improved with prednisone 5. Anemia, unspecified type - ICD9: 285.9, ICD10: D64.9 - COMPLETE BLOOD COUNT 6. Hypomagnesemia - ICD9: 275.2, ICD10: E83.42 - MAGNESIUM Jose Antonio Meyers MD SIGNATURE: Jose Antonio Meyers MD DATE: February 12, 2024 TIME: 11:22 AM documented in this encounter [facility] 02-11-2024 History of Present illness Narrative SUBJECTIVE: The chief complaint is recurrent pleural effusion Mr. Raymundo feels alright today. The amount of pleural fluid draining from the right side of the chest is slowly diminishing. He denies fever, joint pains, photosensitivity, rash and Raynaud's phenomenon. REVIEW OF SYSTEMS GENERAL: Negative for tick bites or exposure to Borrelia species SKIN: No rashes or herpes zoster HEENT: Negative for congestion and rhinorrhea. NECK: Negative for heat or cold intolerance RESPIRATORY: Refer to history of present illness for pulmonary symptoms CARDIOVASCULAR: Negative for chest pain and leg swelling. GI: Negative for abdominal pain, constipation, diarrhea, nausea and vomiting : Negative for dysuria, frequency and urgency HEMATOLOGY/LYMPHOLOGY: No thrombotic events ENDOCRINE: No polydipsia, polyuria, or polyphagia NEURO: Negative for dizziness, weakness, numbness and headaches PSYCH: Negative for major depression ALLERGIC: Negative for nasal catarrh MUSCULOSKELETAL: No episodes of gout or polyarthritis PAST MEDICAL HISTORY No date: GERD (gastroesophageal reflux disease) No date: History of basal cell cancer Comment: left shoulder No date: Mixed hyperlipidemia No date: Osteoarthritis of multiple joints No date: Pleural effusion, right Comment: s/p Thoracentesis 10/01/23 = 520 cc, 625 cc PAST SURGICAL HISTORY 08/23/2014: ANESTH OPEN/SURG ARTHRS TOTAL KNEE ARTHROPLASTY; Left 2011: ARTHROSCOPY KNEE DIAGNOSTIC W/WO SYNOVIAL BX SPX; Left No date: ORTHOPEDIC SURGERY HX; Right Comment: Hand 11/2014: PAST SURGICAL HISTORY OF; Left Comment: Shoulder -BASAL CELL CARCINOMA EXCISION 06/25/2016: TOTAL KNEE REPLACEMENT; Right Social History Tobacco Use Smoking status: Never Smokeless tobacco: Never Substance Use Topics Alcohol use: Yes Comment: socially, no drink since 06/2023 Drug use: Never ALLERGIES Allergen Reactions Tramadol Mental Status Change Current Outpatient Medications Medication Sig Dispense Refill diclofenac (VOLTAREN) 1 % topical gel amoxicillin (AMOXIL) 500 mg capsule Take 4 capsules one hour prior to dental procedure/cleaning . furosemide (LASIX) 80 mg tablet Take 1 tablet by mouth once daily. 90 tablet 0 furosemide (LASIX) 40 mg tablet Take 1 tablet by mouth once daily. At 2 pm 90 tablet 0 hydrOXYchloroQUINE (PLAQUENIL) 200 mg tablet Take 1 tablet by mouth two times a day. 180 tablet 0 magnesium oxide (MAG-OX) 400 mg (241.3 mg magnesium) tablet Take 1 tablet by mouth two times a day. 60 tablet 0 predniSONE (DELTASONE) 10 mg tablet Take 1 tablet by mouth as directed. Prednisone 10 mg 2 tabs tid x 5 days,2 tabs bid x 5 days,3 tabs daily x 5 days,2 tabs daily x 5 days,1 tab daily x 5 days,1/2 daily x 4 days and stip 82 tablet 0 potassium chloride ER (KLOR-CON) 20 mEq tablet Take 1 tablet by mouth three times a day. 270 tablet 0 calcium carbonate (OS-ELIZABETH 500) 500 mg calcium (1,250 mg) tablet Take 1 tablet by mouth two times a day. 180 tablet 0 acetaminophen (TYLENOL) 500 mg tablet Take 2 tablets by mouth every 6 hours. ipratropium-albuterol (DUONEB) 0.5 mg-3 mg(2.5 mg base)/3 mL nebu Inhale 3 mL as instructed every 6 hours as needed for wheezing/shortness of breath. 360 mL 0 allopurinol (ZYLOPRIM) 300 mg tablet Take 300 mg by mouth once daily. atorvastatin (LIPITOR) 10 mg tablet Take 1 tablet by mouth once daily. omeprazole (PRILOSEC) 20 mg capsule Take 20 mg by mouth once daily. No current facility-administered medications for this visit. OBJECTIVE: BP 124/72 Ht 6' 0 (1.83m) Wt 204 lb (92.5kg) BMI 27.66 kg/(m^2). Station and gait are normal. Skin has no purpura and a negative Rumpel Ivan sign. Pupils are equal at 2 mm in diameter. Extraocular muscles are functionally normally. No nasal catarrh. Tongue has no scalloping at the edges and good papillation. Parotid glands are not enlarged. Breath sounds are diminished on the right posterior thorax. Lung esparza are clear bilaterally. Heart has no intercalated beats, murmur or 3rd heart sound. Abdomen has good bowel sounds and no palpable fluid wave. Motor function is normal, proximally and distally. Extremities have no sarcopenia. Feet lack signs of diabetic sequelae and Charcot foot. Assessment and Plan: Encounter Diagnosis ICD-10-CM 1. Recurrent 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 J90 hydrOXYchloroQUINE (PLAQUENIL) 200 mg tablet 2. History of pericarditis Z86.79 Mr. Raymunod was advised to increase hydroxychloroquine to 200 mg twice a day. I spent a total of 45 minutes on this February 12, 2024 reading the physicians', associated with this case, notes, evaluating the previous laboratory values and radiographic studies, reviewing the medication list, performing clinical documentation, [id number] history, the examination, counseling the patient, ordering medications, tests or procedures and communicating the results to this patient. An opportunity for this individual to ask questions was provided. Understanding of the information given, the conclusions of this visit and my recommendations were acknowledged by Mr. Raymundo. Yehuda Dial MD documented in this encounter [facility] 02-04-2024 Note HNO ID: [id number] Author: TITA LANDRY APRN.CNP Service: ? Author Type: Nurse Practitioner Type: Progress Notes Filed: 02/05/2024 16:19 Note Text: [facility] [place] DEPARTMENT OF THORACIC SURGERY OUTPATIENT VISIT DATE February 04, 2024 OUTPATIENT VISIT TYPE ESTABLISHED PT NAME: Sav Cantu Kimberly [facility] NO: [id number] THORACIC SURGEON: Ronaldo Simmons M.D. DATE OF SERVICE: 02/04/2024 PRINCIPAL DX: Pleural Effusion SURGICAL HX 11/20/2023: R VATS pleural biopsy, right mechanic assistant and doxycycline pleurodesis, right Pleurx catheter insertion, right 20Fr chest tube insertion Surgical Pathology 11/20/2023: FINAL DIAGNOSIS A. Right pleura, biopsy: - Chronic pleuritis with mesothelial hyperplasia (see comment). B. Right pleura, biopsy: - Acute organizing and chronic pleuritis (see comment). [place]/ 11/22/2023 Diagnosis Comment A. The biopsy contains pleural tissue with chronic inflammation and focal reactive mesothelial hyperplasia. An immunohistochemical stain for BAP 1 shows retained nuclear expression of the mesothelial cells. B. The pleura shows areas with extensive granulation tissue associated with reactive mesenchymal mesothelial proliferation. Immunohistochemical stains were performed to exclude the possibility of mesothelial or vascular neoplasm. The mesothelial proliferation is positive for cytokeratin CAM 5.2, cytokeratin AE1/AE3, WT1, and focally for calretinin and smooth muscle actin. The cytokeratin stains do not show extension of the mesothelial proliferation into deeper adjacent tissues. All cells are negative for claudin-4. ERG highlights the vascular network of thin walled vessels arranged mostly perpendicular to the pleural surface. A BAP 1 stain shows retained nuclear expression. PU 1 highlights numerous histiocytes associated with the reactive proliferation. Drs. Della Subramanian and Zeus Hinton have also reviewed this case and agree that there is no definitive evidence of malignancy. Right pleural fluid cytology: FINAL DIAGNOSIS A - Pleural Cavity, Right, Fluid, Thoracentesis - Right pleural fluid Negative for malignant cells. Acute and chronic inflammation. The following cell blocks were associated with this case: A1 Cell Block, Alcohol Fixed ON FOR VISIT: Post-operative visit HPI: Sav Raymundo is a 73 year old male with a PmHX significant for HTN, hyperlipidemia, gout, GERD. Patient seen 07/2023 for a few months lasting cough. He had a chest CT on 08/15/23 showing moderate R pleural effusion. He had thoracentesis twice on 09/04/23 and 10/01/2023, cytology was negative both times and chemical analysis was consistent with an exudate. The right pleural effusion persists per most recent CT on 10/18/23. He also has a small to moderate pericardial effusion seen on imaging and on ECHO that was done in 09/04/23, otherwise with good cardiac function(pericardial effusion almost completely resolved on last CT). Imaging has also been consistent with small to moderate left pleural effusion that has almost completely resolved on last CT. On 11/20/2023, patient underwent R VATS pleural biopsy, right mechanic assistant and doxycycline pleurodesis, right Pleurx catheter insertion, right 20Fr chest tube insertion. He was hospitalized 12/20/23 for anasarca, possible autoimmune disease, recurrent pleural effusion. Imaging did not reveal any acute findings. Patient was admitted to [facility] and started on lasix drip, improving anasarca and pleural effusion. Pleurx catheter was drained daily with significantly decreasing [id number]. He was worked up for an autoimmune disease as well. He was discharged on an increased dose of lasix (20mg > 80mg) and started on Plaquenil. PHYSICAL EXAM: VITAL SIGNS: BP 120/69 (BP Site: Left Arm, BP Position: Sitting, BP Cuff Size: Large Adult) Pulse 75 Temp 36.2 ?C (97.1 ?F) (Temporal) Resp 16 Ht 182.9 cm (6') Wt 90.7 kg (199 lb 15.3 oz) SpO2 95% BMI 27.12 kg/m? Room air Incision location: Right [place] sites Incision Assessment: Well approximated and no drainage, swelling, erythema or warmth Drain/Tubes: Pleurex Catheter-dressing C/D/I GENERAL: Well appearing HEENT: normocephalic, midline, anicteric sclera. LUNGS: clear to auscultation, no wheezing or rhonchi HEART: RRR without murmur ABDOMEN: soft, non-tender EXTREMITIES: No clubbing, cyanosis, improving edema MUSCULOSKELETAL: Muscular strength intact. SKIN: turgor normal, no suspicious rashes or lesions NEURO: Gait normal. Sensation grossly intact. IMAGING/TESTS: CXR 01/04/2024: PENDING INTERVAL HISTORY: Sav Raymundo presents to clinic today for postoperative visit. Patient and his voice frustration that cause of pleural effusion is still unknown. He denies any fevers, chills, (more content not included)... [facility] 02-04-2024 History of Present illness Narrative Heart[facility] [place] DEPARTMENT OF THORACIC SURGERY OUTPATIENT VISIT DATE February 04, 2024 OUTPATIENT VISIT TYPE ESTABLISHED PT NAME: Sav Raymundo CLINIC NO: [id number] THORACIC SURGEON: Ronaldo Simmons M.D. DATE OF SERVICE: 02/04/2024 PRINCIPAL DX: Pleural Effusion SURGICAL HX 11/20/2023: R VATS pleural biopsy, right mechanic assistant and doxycycline pleurodesis, right Pleurx catheter insertion, right 20Fr chest tube insertion Surgical Pathology 11/20/2023: FINAL DIAGNOSIS A. Right pleura, biopsy: - Chronic pleuritis with mesothelial hyperplasia (see comment). B. Right pleura, biopsy: - Acute organizing and chronic pleuritis (see comment). [place]/ 11/22/2023 Diagnosis Comment A. The biopsy contains pleural tissue with chronic inflammation and focal reactive mesothelial hyperplasia. An immunohistochemical stain for BAP 1 shows retained nuclear expression of the mesothelial cells. B. The pleura shows areas with extensive granulation tissue associated with reactive mesenchymal mesothelial proliferation. Immunohistochemical stains were performed to exclude the possibility of mesothelial or vascular neoplasm. The mesothelial proliferation is positive for cytokeratin CAM 5.2, cytokeratin AE1/AE3, WT1, and focally for calretinin and smooth muscle actin. The cytokeratin stains do not show extension of the mesothelial proliferation into deeper adjacent tissues. All cells are negative for claudin-4. ERG highlights the vascular network of thin walled vessels arranged mostly perpendicular to the pleural surface. A BAP 1 stain shows retained nuclear expression. PU 1 highlights numerous histiocytes associated with the reactive proliferation. Drs. Della Subramanian and Zeus Hinton have also reviewed this case and agree that there is no definitive evidence of malignancy. Right pleural fluid cytology: FINAL DIAGNOSIS A - Pleural Cavity, Right, Fluid, Thoracentesis - Right pleural fluid Negative for malignant cells. Acute and chronic inflammation. The following cell blocks were associated with this case: A1 Cell Block, Alcohol Fixed ON FOR VISIT: Post-operative visit HPI: Sav Raymundo is a 73 year old male with a PmHX significant for HTN, hyperlipidemia, gout, GERD. Patient seen 07/2023 for a few months lasting cough. He had a chest CT on 08/15/23 showing moderate R pleural effusion. He had thoracentesis twice on 09/04/23 and 10/01/2023, cytology was negative both times and chemical analysis was consistent with an exudate. The right pleural effusion persists per most recent CT on 10/18/23. He also has a small to moderate pericardial effusion seen on imaging and on ECHO that was done in 09/04/23, otherwise with good cardiac function(pericardial effusion almost completely resolved on last CT). Imaging has also been consistent with small to moderate left pleural effusion that has almost completely resolved on last CT. On 11/20/2023, patient underwent R VATS pleural biopsy, right mechanic assistant and doxycycline pleurodesis, right Pleurx catheter insertion, right 20Fr chest tube insertion. He was hospitalized 12/20/23 for anasarca, possible autoimmune disease, recurrent pleural effusion. Imaging did not reveal any acute findings. Patient was admitted to [facility] and started on lasix drip, improving anasarca and pleural effusion. Pleurx catheter was drained daily with significantly decreasing output [phone]. He was worked up for an autoimmune disease as well. He was discharged on an increased dose of lasix (20mg > 80mg) and started on Plaquenil. PHYSICAL EXAM: VITAL SIGNS: BP 120/69 (BP Site: Left Arm, BP Position: Sitting, BP Cuff Size: Large Adult) Pulse 75 Temp 36.2 C (97.1 F) (Temporal) Resp 16 Ht 182.9 cm (6') Wt 90.7 kg (199 lb 15.3 oz) SpO2 95% BMI 27.12 kg/m Room air Incision location: Right [place] sites Incision Assessment: Well approximated and no drainage, swelling, erythema or warmth Drain/Tubes: Pleurex Catheter-dressing C/D/I GENERAL: Well appearing HEENT: normocephalic, midline, anicteric sclera. LUNGS: clear to auscultation, no wheezing or rhonchi HEART: RRR without murmur ABDOMEN: soft, non-tender EXTREMITIES: No clubbing, cyanosis, improving edema MUSCULOSKELETAL: Muscular strength intact. SKIN: turgor normal, no suspicious rashes or lesions NEURO: Gait normal. Sensation grossly intact. IMAGING/TESTS: CXR 01/04/2024: PENDING INTERVAL HISTORY: Sav Raymundo presents to clinic today for postoperative visit. Patient and his voice frustration that cause of pleural effusion is still unknown. He denies any fevers, chills, or night sweats. Denies any SOB. Cough has resolved since starting prednisone. He has also lost over 30 lbs since hospital discharge on lasix and plaquenil. He is scheduled to see PCP and Leather Fitter next week. He has followed-up with local Legal Analyst, and was referred to Legal Analyst at [facility], which is scheduled on 03/17 with spirometry. Right pleurx drainage has significantly decreased since last visit; now less than 350cc/drainage every MWF. Right pleurx catheter with 150 cc of awilda drainage out in clinic today. IMPRESSION: 73 year old male with pmh significant for recurrent right pleural effusion s/p R VATS pleural biopsy, right mechanic assistant and doxycycline pleurodesis, right Pleurx catheter insertion, right 20Fr chest tube insertion on 11/20/[address] Simmons. He was hospitalized 12/20/23 for anasarca, possible autoimmune disease, and recurrent pleural effusion. Imaging did not reveal any acute findings. Patient was admitted to [facility] and started on lasix drip, with improving anasarca and pleural effusion. Pleurx catheter was drained daily with significantly decreasing output [phone]. He was worked up for an autoimmune disease as well. He was discharged on an increased dose of lasix (20mg > 80mg) and started on Plaquenil. Pleurx output has significantly decreased since last visit. CXR from today is still pending; to my eye, shows improving right pleural effusion. Patient continues to voice frustration that cause of pleural effusion remains unknown. PLAN: -Coordinate follow-up with Pulmonary on 03/17/2024; sooner if experiencing new/worsening symptoms -Follow-up with Rheumatology -May decrease pleurx drainage to twice a week. Part of this note was copied from my previous note, all content has been individually and thoroughly reviewed, updated as necessary, patient assessed with updated information, and changes appropriately documented/adjusted. Tita Landry APRN.ATTORNEY LAW CLERK documented in this encounter [facility] 01-20-2024 Telephone encounter Note Received Pulmonary office note 01/15/24 from [facility] Record scanned in [employer] Jahaira Wood linux administrator [facility] 01-20-2024 Miscellaneous Notes Received Pulmonary office note 01/15/24 from [facility] Record scanned in Cristian Wood, linux administrator documented in this encounter [facility] 01-15-2024 History of Present illness Narrative NEW PATIENT PATIENT NAME: Sav Raymundo SERVICE DATE: 01/15/2024 SERVICE TIME: 12:34 PM HPI: Mr. Raymundo is a 73 year old male who presents for Hospital Follow Up.Patient c/o chronic non productive cough,recurrent pleural effusion 500 ml every [address] Dial PAST MEDICAL HISTORY: PAST MEDICAL HISTORY No date: GERD (gastroesophageal reflux disease) No date: History of basal cell cancer Comment: left shoulder No date: Mixed hyperlipidemia No date: Osteoarthritis of multiple joints No date: Pleural effusion, right Comment: s/p Thoracentesis 10/01/23 = 520 cc, 625 cc PAST SURGICAL HISTORY: PAST SURGICAL HISTORY 08/23/2014: ANESTH OPEN/SURG ARTHRS TOTAL KNEE ARTHROPLASTY; Left 2011: ARTHROSCOPY KNEE DIAGNOSTIC W/WO SYNOVIAL BX SPX; Left No date: ORTHOPEDIC SURGERY HX; Right Comment: Hand 11/2014: PAST SURGICAL HISTORY OF; Left Comment: Shoulder -BASAL CELL CARCINOMA EXCISION 06/25/2016: TOTAL KNEE REPLACEMENT; Right FAMILY HISTORY: FAMILY HISTORY Problem Relation Age of Onset Heart Father SOCIAL HISTORY: Social History Tobacco Use Smoking status: Never Smokeless tobacco: Never Substance Use Topics Alcohol use: Yes Comment: socially, no drink since 06/2023 Drug use: Never MEDICATIONS: Current Outpatient Medications Medication Sig Dispense Refill calcium carbonate (OS-ELIZABETH 500) 500 mg calcium (1,250 mg) tablet Take 1 tablet by mouth two times a day. 180 tablet 0 furosemide (LASIX) 80 mg tablet Take 1 tablet by mouth once daily. 30 tablet 1 hydrOXYchloroQUINE (PLAQUENIL) 200 mg tablet Take 1 tablet by mouth once daily. 30 tablet 1 magnesium oxide (MAG-OX) 400 mg (241.3 mg magnesium) tablet Take 1 tablet by mouth two times a day. 60 tablet 0 furosemide (LASIX) 40 mg tablet Take 1 tablet by mouth once daily. At 2 pm 30 tablet 1 acetaminophen (TYLENOL) 500 mg tablet Take 2 tablets by mouth every 6 hours. ipratropium-albuterol (DUONEB) 0.5 mg-3 mg(2.5 mg base)/3 mL nebu Inhale 3 mL as instructed every 6 hours as needed for wheezing/shortness of breath. 360 mL 0 allopurinol (ZYLOPRIM) 300 mg tablet Take 300 mg by mouth once daily. atorvastatin (LIPITOR) 10 mg tablet Take 1 tablet by mouth once daily. omeprazole (PRILOSEC) 20 mg capsule Take 20 mg by mouth once daily. predniSONE (DELTASONE) 10 mg tablet Take 1 tablet by mouth as directed. Prednisone 10 mg 2 tabs tid x 5 days,2 tabs bid x 5 days,3 tabs daily x 5 days,2 tabs daily x 5 days,1 tab daily x 5 days,1/2 daily x 4 days and stip 82 tablet 0 potassium chloride ER (KLOR-CON) 20 mEq tablet Take 1 tablet by mouth three times a day. 270 tablet 0 No current facility-administered medications for this visit. ALLERGIES: ALLERGIES Allergen Reactions Tramadol Mental Status Change REVIEW OF SYSTEMS GENERAL: Negative for malaise, significant weight loss and fever HEENT: Negative for frequent or significant headaches, significant changes in vision or vision problems, significant ear problems or hearing loss, nasal discharge or nose bleeds and sore throat, difficulty swallowing, mouth lesions NECK: Negative for goiter, pain and significant neck swelling RESPIRATORY: Positive for cough, no wheezing and shortness of breath CARDIOVASCULAR: Negative for chest pain, leg swelling and palpitations GASTROINTESTINAL: Negative for abdominal discomfort, blood in stools or black stools, and change in stool. GENITOURINARY: Negative for dysuria, frequency and incontinence MUSCULOSKELETAL: Negative for joint pain or swelling, back pain, and muscle pain. NEUROLOGIC: Negative for focal numbness or weakness, headaches and dizziness. SKIN: Negative for lesions, rash, and itching. PSYCHIATRIC: Negative for sleep disturbance, mood disorder and recent psychosocial stressors. HEMATOLOGIC/LYMPHATIC/IMMUNOLOGIC: Negative for prolonged bleeding, bruising easily, and swollen nodes. ENDOCRINE: Negative for cold or heat intolerance, polyuria, polydipsia and goiter. PHYSICAL EXAMINATION: BP 128/82 Pulse 80 Temp 98.6 Resp 16 Ht 6' 0 (1.83m) Wt 214 lb (97.1kg) SpO2 96% BMI 29.02 kg/(m^2). General appearance: Overweight, healthy, cooperative, in no acute distress, alert Skin: Skin color, texture, turgor normal. No rashes or lesions. Head: Normocephalic. No masses, lesions, tenderness or abnormalities Eyes: conjunctivae/corneas clear. PERRL, EOM's intact. Ears: External ears normal. Canals clear. TM's normal. Nose/Sinuses: Nares normal. Septum midline. Mucosa normal. No drainage or sinus tenderness. Oropharynx: Lips, mucosa, and tongue normal. Teeth and gums normal. Oropharynx normal. Neck: Neck supple, no adenopathy; thyroid symmetric, normal size Back: Back symmetric, no curvature. ROM normal. No CVA tenderness. Lungs: Percussion normal. Good diaphragmatic excursion. Lungs decreased BS in bases Heart: Stanford normal. Precordium quiet. RRR. Normal HS with no murmurs.. Abdomen: Abdomen soft, non-tender. BS normal. No masses, organomegaly Extremities: Normal exam of the extremities, Extremities normal. No deformities, edema, or skin discoloration Musculoskeletal: Spine ROM normal. Muscular strength intact. Peripheral pulses: normal, capilliary refill <2secs, strong peripheral pulses Neuro: Gait normal. Reflexes normal and symmetric. Sensation grossly intact. ASSESSMENT/PLAN: 1. Recurrent 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 - ICD9: 511.9, ICD10: J90 (primary diagnosis) - BASIC METABOLIC PANEL - POTASSIUM CHLORIDE ER 20 MEQ TABLET,EXTENDED RELEASE(PART/CRYST) 2. Chronic cough - ICD9: 786.2, ICD10: R05.3 - PREDNISONE 10 MG TABLET taper 3. Elevated C-reactive protein (CRP) - ICD9: 790.95, ICD10: R79.82 - PREDNISONE 10 MG TABLET taper 4. Elevated sedimentation rate - ICD9: 790.1, ICD10: R70.0 - PREDNISONE 10 MG TABLET taper Jose Antonio Meyers MD SIGNATURE: Jose Antonio Meyers MD DATE: January 15, 2024 TIME: 12:34 PM documented in this encounter [facility] 01-06-2024 History of Present illness Narrative SUBJECTIVE: The chief complaint is right pleural effusion Mr. Raymundo relates that the visiting nurse comes to his house and drains 500 to 1000+ cc of pleural fluid every 2 days. He is concerned about taking a vacation to [place] for that reason. In addition, he complains of a chronic cough and was referred to the cough clinic. The patient relates that montelukast provided no benefit to his sinuses. He denies epistaxis and hemoptysis. No arthritis, fever or headache. REVIEW OF SYSTEMS GENERAL: No constitutional symptoms SKIN: No photosensitivity HEENT: No swollen lymph nodes NECK: Negative for heat or cold intolerance. RESPIRATORY: No hemoptysis CARDIOVASCULAR: No angina pectoris GI: No hematemesis or melena : No kidney stones HEMATOLOGY/LYMPHOLOGY: No thrombotic events ENDOCRINE: No polydipsia, polyuria, or polyphagia NEURO: No paresthesias PSYCH: No crying jags ALLERGIC: Negative for nasal catarrh MUSCULOSKELETAL: No trauma or falling down. PAST MEDICAL HISTORY Diagnosis Date GERD (gastroesophageal reflux disease) History of basal cell cancer left shoulder Mixed hyperlipidemia Osteoarthritis of multiple joints Pleural effusion, right s/p Thoracentesis 10/01/23 = 520 cc, 08/201924 625 cc PAST SURGICAL HISTORY Procedure Laterality Date ANESTH OPEN/SURG ARTHRS TOTAL KNEE ARTHROPLASTY Left 08/23/2014 ARTHROSCOPY KNEE DIAGNOSTIC W/WO SYNOVIAL BX SPX Left 2010 ORTHOPEDIC SURGERY HX Right Hand PAST SURGICAL HISTORY OF Left 11/2014 Shoulder -BASAL CELL CARCINOMA EXCISION TOTAL KNEE REPLACEMENT Right 06/25/2016 Social History Tobacco Use Smoking status: Never Smokeless tobacco: Never ALLERGIES Allergen Reactions Tramadol Mental Status Change Current Outpatient Medications Medication Sig Dispense Refill calcium carbonate (OS-ELIZABETH 500) 500 mg calcium (1,250 mg) tablet Take 1 tablet by mouth two times a day. 180 tablet 0 furosemide (LASIX) 80 mg tablet Take 1 tablet by mouth once daily. 30 tablet 1 hydrOXYchloroQUINE (PLAQUENIL) 200 mg tablet Take 1 tablet by mouth once daily. 30 tablet 1 magnesium oxide (MAG-OX) 400 mg (241.3 mg magnesium) tablet Take 1 tablet by mouth two times a day. 60 tablet 0 montelukast (SINGULAIR) 10 mg tablet Take 1 tablet by mouth once daily. 30 tablet 1 potassium chloride ER (KLOR-CON) 20 mEq tablet Take 1 tablet by mouth two times a day. 60 tablet 1 furosemide (LASIX) 40 mg tablet Take 1 tablet by mouth once daily. At 2 pm 30 tablet 1 fluticasone (FLONASE) 50 mcg/actuation nasal spray Use 2 Sprays in each nostril daily at bedtime. 16 g 1 acetaminophen (TYLENOL) 500 mg tablet Take 2 tablets by mouth every 6 hours. ipratropium-albuterol (DUONEB) 0.5 mg-3 mg(2.5 mg base)/3 mL nebu Inhale 3 mL as instructed every 6 hours as needed for wheezing/shortness of breath. 360 mL 0 allopurinol (ZYLOPRIM) 300 mg tablet Take 300 mg by mouth once daily. atorvastatin (LIPITOR) 10 mg tablet Take 1 tablet by mouth once daily. omeprazole (PRILOSEC) 20 mg capsule Take 20 mg by mouth once daily. No current facility-administered medications for this visit. OBJECTIVE: BP 134/76 Ht 6' 0 (1.83m) Wt 214 lb (97.1kg) BMI 29.02 kg/(m^2). Ambulatory on his own reconnaissance. Skin has no malar rash. Pupils are equal at 2 mm in diameter. Cranial nerves II through XII are intact. No nasal catarrh. Periodontal tissues are in decent repair and there are no obvious caries. Parotid glands are not enlarged. Lung espraza are clear bilaterally. Heart has no intercalated beats, murmur or 3rd heart sound. Abdomen has good bowel sounds and no tenderness or palpable mass. Motor function is normal, proximally and distally. Wrists, fingers, elbows, shoulders, knees, ankles and feet have no swelling, erythema or tenderness. Extremities have mild sarcopenia. Feet have no ulcerations of the skin or evidence of impaired vascularity. Lab Results Component Value Date/Time RF <10 12/21/2023 11:57 AM Lab Results Component Value Date/Time RF <10 12/21/2023 11:57 AM CCPABG <15 12/21/2023 11:56 AM CRP 1.1 (H) 12/25/2023 06:27 AM VITD25 37.2 12/21/2023 11:56 AM URICACID 7.6 12/24/2023 08:02 AM Assessment and Plan: Encounter Diagnosis ICD-10-CM 1. Recurrent pleural effusion J90 2. History of pericarditis Z86.79 3. Chronic cough R05.3 Case discussed with the thoracic surgery service of Ronaldo Simmons MD. Hydroxychloroquine is continued for 4 more weeks. I spent a total of 45 minutes on January 06, 2024 reading the physicians', associated with this case, notes, evaluating the previous laboratory values and radiographic studies, reviewing the medication list, performing clinical documentation, [id number] history, the examination, counseling the patient, ordering medications, tests or procedures and communicating the results to this patient. An opportunity for this individual to ask questions was provided. Understanding of the information given, the conclusions of this visit and my recommendations were acknowledged by Mr. Raymundo. Yehuda Dial MD documented in this encounter [facility] 01-06-2024 Note [facility] 01-06-2024 History of Present illness Narrative Dear Ruma Christina PA-C, Thank you for the referral of Sav Cantu Kimberly for evaluation. Chronic Cough E-consult - Chart Reviewed. Chronic Cough: x 04/2024 History of prior Pulm evaluation: yes; Dr. Gtoti with [facility] Prior PFTs: unable to locate Prior Chest imagin01/06/2024 pleural effusion Smoking history: never Previously tried treatments: ICS Patient not appropriate for Chronic Cough Clinic. Would benefit from general pulmonary consult given it appears cough is worse when pleural fluid is requiring drainage per chart review with limited data available. Additionally, no clear pulmonary work up which I can locate. Will need to request records from [facility]'s where he social work instructor is. Please arrange the following testing to be done prior to visit: Spirometry with dilator if obstructed Nitric Oxide Katerina Adler APRN Pulmonary Medicine 01/06/2024 documented in this encounter [facility] 01-06-2024 History of Present illness Narrative Images from the original note were not included. [facility] - OUTPATIENT THORACIC SURGERY CLINIC NOTE PT NAME: Sav Raymundo CLINIC NO: [id number] THORACIC SURGEON: Ronaldo Simmons M.D. DATE OF SERVICE: 01/06/2024 PRINCIPAL DX: Pleural Effusion SURGICAL HX 11/20/2023: R VATS pleural biopsy, right mechanic assistant and doxycycline pleurodesis, right Pleurx catheter insertion, right 20Fr chest tube insertion Surgical Pathology 11/20/2023: INAL DIAGNOSIS A - Pleural Cavity, Right, Fluid, Thoracentesis - Right pleural fluid Negative for malignant cells. Acute and chronic inflammation. FINAL DIAGNOSIS A. Right pleura, biopsy: - Chronic pleuritis with mesothelial hyperplasia (see comment). B. Right pleura, biopsy: - Acute organizing and chronic pleuritis (see comment). REASON FOR VISIT: Surgery follow up HPI: Sav Raymundo is a 73 year old male with a PmHX significant for HTN, hyperlipidemia, gout, GERD. Patient seen 07/2023 for a few months lasting cough. He had a chest CT on 08/15/23 showing moderate R pleural effusion. He had thoracentesis twice on 09/04/23 and 10/01/2023, cytology was negative both times and chemical analysis was consistent with an exudate. The right pleural effusion persists per most recent CT on 10/18/23. He also has a small to moderate pericardial effusion seen on imaging and on ECHO that was done in 09/04/23, otherwise with good cardiac function(pericardial effusion almost completely resolved on last CT). Imaging has also been consistent with small to moderate left pleural effusion that has almost completely resolved on last CT. Since last visit 12/20/2023 Sav Raymundo presents to clinic today for follow up visit. He has been doing okay. Recall at last visit patient was having high output from pleurx as well as frequent diarrhea, vomiting, and increased cough. Patient was hospitalized 12/20/23 for anasarca, possible autoimmune disease, recurrent pleural effusion. Imaging did not reveal any acute findings. Patient was admitted to [facility] and started on lasix drip, improving anasarca and pleural effusion. Pleurx catheter was drained daily with significantly decreasing output [phone]. He was worked up for an autoimmune disease as well. He was discharged on an increased dose of lasix (20mg > 80mg) and started on Plaquenil. Today he denies fevers, chills, night sweats. Pain is well controlled. Denies SOB, lightheadedness, dizziness, no chest pain, tightness, or discomfort. No c/o nausea or vomiting. Does endorse a cough that has been present since Thanksgiving but worse since surgery. Describes as a dry, barky cough. Sometimes he is coughing so hard that it causes him to throw up. Does note relief when draining his pleurx. Patient notes frustration with not knowing where this fluid is coming from and what is causing his cough. Discussed referral to chronic cough clinic. Patient does have follow up with transportation solutions manager today and social work instructor next week. Will fax over recent medical information to social work instructor. Patient also going on a bus trip in late January. Discussed spacing out drainage before the trip to see if patient could tolerate going a few days without being drained and not getting symptomatic. Will try to schedule follow up SaturdayFebruary 03, day prior to their scheduled vacation. CXR 01/06/2024 PHYSICAL EXAM: VITAL SIGNS: BP 137/73 (BP Site: Left Arm, BP Position: Sitting, BP Cuff Size: Regular Adult) Pulse 80 Temp 36.2 C (97.2 F) (Temporal) Resp 16 Ht 182.9 cm (6') Wt 97.3 kg (214 lb 6.4 oz) SpO2 96% BMI 29.08 kg/m Room air General appearance: Well appearing, alert, in no acute distress, well-hydrated, well nourished. Skin: Skin color, texture, turgor normal, no suspicious rashes or lesions Lungs: Lungs clear to auscultation. No wheezing, rhonchi, rales Heart: RRR without murmur, gallop, or rubs. No ectopy Abdomen: Normal abdominal exam, Abdomen soft, non-tender. No masses, organomegaly Extremities: No deformities, edema, skin discoloration, clubbing or cyanosis. Musculoskeletal: No joint swelling, deformity, or tenderness Neuro: Gait normal. Sensation grossly intact. Incision location: Right Thoracoport sites Incision Assessment: Well approximated and no drainage, swelling, erythema or warmth Drain/Tubes: Pleurex Catheter site without erythema or irritation Last 3 drainages: Sunday 12/31: 550cc awilda fluid Tuesday 01/02: 500cc awilda fluid Friday 01/05: 700cc serous fluid IMPRESSION: 73 year old male with pmh significant for recurrent right pleural effusion s/p R VATS pleural biopsy, right mechanic assistant and doxycycline pleurodesis, right Pleurx catheter insertion, right 20Fr chest tube insertion on 11/20/[address] Simmons. Patient overall doing well from a clinical standpoint. CXR from today is still pending; to my eye, shows slight increase in right pleural effusion when compared to CXR from 12/23. Patient continues to drain around 500cc from pleurx catheter every other day. PLAN: - follow up with [employer] in 4 weeks with CXR; sooner if experiencing new or worsening symptoms - continue to drain pleurx every other day / when symptomatic - follow up with social work instructor Dr. Gotti - referral placed for chronic cough clinic - will send over OR report, pathology report, recent hospital discharge, recent CXR report, and today's clinic note to social work instructor Dr. Bryn Christina PA-C documented in this encounter [facility] 01-06-2024 Note HNO ID: [id number] Author: RUMA CHRISTINA PA-C Service: ? Author Type: Physician Fruit Tester Type: Progress Notes Filed: 01/06/2024 14:58 Note Text: [facility] - OUTPATIENT THORACIC SURGERY CLINIC NOTE PT NAME: Sav Raymundo [facility] NO: [id number] THORACIC SURGEON: Ronaldo Simmons M.D. DATE OF SERVICE: 01/06/2024 PRINCIPAL DX: Pleural Effusion SURGICAL HX 11/20/2023: R VATS pleural biopsy, right mechanic assistant and doxycycline pleurodesis, right Pleurx catheter insertion, right 20Fr chest tube insertion Surgical Pathology 11/20/2023: INAL DIAGNOSIS A - Pleural Cavity, Right, Fluid, Thoracentesis - Right pleural fluid Negative for malignant cells. Acute and chronic inflammation. FINAL DIAGNOSIS A. Right pleura, biopsy: - Chronic pleuritis with mesothelial hyperplasia (see comment). B. Right pleura, biopsy: - Acute organizing and chronic pleuritis (see comment). REASON FOR VISIT: Surgery follow up HPI: Sav Raymundo is a 73 year old male with a PmHX significant for HTN, hyperlipidemia, gout, GERD. Patient seen 07/2023 for a few months lasting cough. He had a chest CT on 08/15/23 showing moderate R pleural effusion. He had thoracentesis twice on 09/04/23 and 10/01/2023, cytology was negative both times and chemical analysis was consistent with an exudate. The right pleural effusion persists per most recent CT on 10/18/23. He also has a small to moderate pericardial effusion seen on imaging and on ECHO that was done in 09/04/23, otherwise with good cardiac function(pericardial effusion almost completely resolved on last CT). Imaging has also been consistent with small to moderate left pleural effusion that has almost completely resolved on last CT. Since last visit 12/20/2023 Sav Raymundo presents to clinic today for follow up visit. He has been doing okay. Recall at last visit patient was having high output from pleurx as well as frequent diarrhea, vomiting, and increased cough. Patient was hospitalized 12/20/23 for anasarca, possible autoimmune disease, recurrent pleural effusion. Imaging did not reveal any acute findings. Patient was admitted to [facility] and started on lasix drip, improving anasarca and pleural effusion. Pleurx catheter was drained daily with significantly decreasing output [phone]. He was worked up for an autoimmune disease as well. He was discharged on an increased dose of lasix (20mg > 80mg) and started on Plaquenil. Today he denies fevers, chills, night sweats. Pain is well controlled. Denies SOB, lightheadedness, dizziness, no chest pain, tightness, or discomfort. No c/o nausea or vomiting. Does endorse a cough that has been present since Thanks but worse since surgery. Describes as a dry, barky cough. Sometimes he is coughing so hard that it causes him to throw up. Does note relief when draining his pleurx. Patient notes frustration with not knowing where this fluid is coming from and what is causing his cough. Discussed referral to chronic cough clinic. Patient does have follow up with transportation solutions manager today and social work instructor next week. Will fax over recent medical information to social work instructor. Patient also going on a bus trip in late January. Discussed spacing out drainage before the trip to see if patient could tolerate going a few days without being drained and not getting symptomatic. Will try to schedule follow up SaturdayFebruary 03, day prior to their scheduled vacation. CXR 01/06/2024 PHYSICAL EXAM: VITAL SIGNS: BP 137/73 (BP Site: Left Arm, BP Position: Sitting, BP Cuff Size: Regular Adult) Pulse 80 Temp 36.2 ?C (97.2 ?F) (Temporal) Resp 16 Ht 182.9 cm (6') Wt 97.3 kg (214 lb 6.4 oz) SpO2 96% BMI 29.08 kg/m? Room air General appearance: Well appearing, alert, in no acute distress, well-hydrated, well nourished. Skin: Skin color, texture, turgor normal, no suspicious rashes or lesions Lungs: Lungs clear to auscultation. No wheezing, rhonchi, rales Heart: RRR without murmur, gallop, or rubs. No ectopy Abdomen: Normal abdominal exam, Abdomen soft, non-tender. No masses, organomegaly Extremities: No deformities, edema, skin discoloration, clubbing or cyanosis. Musculoskeletal: No joint swelling, deformity, or tenderness Neuro: Gait normal. Sensation grossly intact. Incision location: Right Thoracoport sites Incision Assessment: Well approximated and no drainage, swelling, erythema or warmth Drain/Tubes: Pleurex Catheter site without erythema or irritation Last 3 drainages: Sunday 12/31: 550cc awilda fluid Tuesday 01/02: 500cc awilda fluid Friday 01/05: 700cc serous fluid IMPRESSION: 73 year old male with pmh significant for recurrent right pleural effusion s/p R VATS pleural biopsy, right mechanic assistant and doxycycline pleurodesis, right Pleurx catheter insertion, right 20Fr chest tube insertion on 11/20/[address] Simmons. Patient overall doing well from a clinical standpoint. CXR from today is still pendin (more content not included)... [facility] 01-06-2024 History of Present illness Narrative Radiology Service Progress Note PATIENT NAME: Sav Raymundo DATE OF SERVICE: January 06, 2024 TIME: 1:08 PM PATIENT IDENTITY VERIFICATION COMPLETED USING TWO (2) IDENTIFIERS: Name and Date of confirmed by patient verbally and Name and Date of confirmed by identification band. FALL SCREENING: Has the patient had 2 falls in the last year or 1 fall with injury or currently using an Ambulatory Assistive Device (Walker, Cane, Wheelchair, Crutches, etc.)? No PATIENT GENDER DATA: Male PATIENT RELEVANT IMPLANT DATA REVIEWED: Not Applicable PATIENT PRESENTS WITH AN IMPLANTABLE OR ATTACHED DIRECTOR REACTOR PROJECTS: No RADIOLOGY DEPARTMENT: General X-ray: Exam(s) Completed: Chest X-Ray PERIPHERAL IV DATA: Not applicable SIGNED BY: RT Abbi(Sandee) January 06, 2024 1:08 PM documented in this encounter [facility] 01-06-2024 Note HNO ID: [id number] Author: SHERIE KUHN RT(R) Service: Radiology Author Type: Technologist Type: Progress Notes Filed: 01/06/2024 13:08 Note Text: Radiology Service Progress Note PATIENT NAME: Sav Raymundo DATE OF SERVICE: January 06, 2024 TIME: 1:08 PM PATIENT IDENTITY VERIFICATION COMPLETED USING TWO (2) IDENTIFIERS: Name and Date of confirmed by patient verbally and Name and Date of confirmed by identification band. FALL SCREENING: Has the patient had 2 falls in the last year or 1 fall with injury or currently using an Ambulatory Assistive Device (Walker, Cane, Wheelchair, Crutches, etc.)? No PATIENT GENDER DATA: Male PATIENT RELEVANT IMPLANT DATA REVIEWED: Not Applicable PATIENT PRESENTS WITH AN IMPLANTABLE OR ATTACHED DIRECTOR REACTOR PROJECTS: No RADIOLOGY DEPARTMENT: General X-ray: Exam(s) Completed: Chest X-Ray PERIPHERAL IV DATA: Not applicable SIGNED BY: IMAN Go) January 06, 2024 1:08 PM [facility] 12-26-2023 Note HNO ID: [id number] Author: LUPE BAUER RN Service: Care Management Author Type: Registered Nurse Type: Care Mgt Progress Note Filed: 12/26/2023 16:37 Note Text: CARE MANAGEMENT DISCHARGE NOTE SERVICE DATE: December 26, 2023 SERVICE TIME: 4:37 PM Admission Date: 12/20/2023 LOS: 6 days Discharge Arrangement Discharge Arrangement: Home with Home Health Caregiver Assessment Caregiver is ready, willing and able to meet the patient's needs as recommended by the inter-professional team: Yes [facility] Transportation Arrangements: Car Discharge Information Row Name ED to Hosp-Admission (Current) from 12/20/[address] [facility] Start of Care -- agency will contact patient Spouse at bedside to transport home. DC arrangements confirmed with patient, spouse, [facility], and bedside nurse. SIGNATURE: Lupe Bauer RN PATIENT NAME: Sav Raymundo DATE: December 26, 2023 TIME: 4:37 PM CONTACT #: [phone] [facility] 12-26-2023 Note HNO ID: [id number] Author: YEHUDA DIAL MD Service: Rheumatology Author Type: Physician Type: Progress Notes Filed: 12/26/2023 13:49 Note Text: RHEUMATOLOGY SERVICE CONSULT PROGRESS NOTE SERVICE DATE: 12/26/2023 SERVICE TIME: 9:15 AM Impression/Recommendations The clinical picture is compatible with an autoimmune disease, however, the GREY and rheumatoid factor are negative. 2 episodes of epistaxis in the last few months - ? A sign of vasculitis I reviewed the laboratory tests with the patient and his this morning. I recommended a therapeutic trial of hydroxychloroquine. The side effects of hydroxychloroquine were reviewed and the patient agrees to treatment. He and his slightly confused about fluid management and what to do if he gains weight. Subjective INTERVAL HPI: Mr. Raymundo feels okay. He is concerned about out weight gain and abdominal girth. He would like to go home today, if possible. The patient agents to episodes of spontaneous bloody noses. He has allergies, rhinitis and postnasal drip. The patient was not seen today. No arthritis, fever, headache, impairment of gait. Current Facility-Administered Medications Medication Dose Route Frequency atorvastatin 10 mg tab(s) (LIPITOR) 10 mg ORAL DAILY allopurinol 300 mg tab(s) (ZYLOPRIM) 300 mg ORAL DAILY NaCl 0.9% iv flush bag 20 mL INTRAVENOUS PRN ondansetron 4 mg tab(s) (ZOFRAN) 4 mg ORAL q 6 H PRN Or ondansetron (PF) 4 mg injection (ZOFRAN) 4 mg INTRAVENOUS q 6 H PRN acetaminophen 650 mg tab(s) (TYLENOL) 650 mg ORAL q [address] 20 mg tab(s) (PROTONIX) 20 mg ORAL DAILY (6 AM) melatonin 6 mg tab(s) 6 mg ORAL AT BEDTIME PRN potassium chloride ER 20 mEq tab(s) (KLOR-CON) 20 mEq ORAL DAILY magnesium oxide 400 mg tab(s) (MAG-OX) 400 mg ORAL BID calcium carbonate 1,250 mg tab(s) (OS-ELIZABETH 500) 1,250 mg ORAL BID furosemide 80 mg tab(s) (LASIX) 80 mg ORAL DAILY hydrOXYchloroQUINE 200 mg tab(s) (PLAQUENIL) 200 mg ORAL DAILY Objective PHYSICAL EXAM: BP 118/71 Pulse 79 Temp (Src) 98.1 (Oral) Resp 19 Ht 6' 0 (1.83m) Wt 205 lb 4 oz (93.1kg) SpO2 95% BMI 27.83 kg/(m2). O2 Therapy: Room Air Alert and oriented in all 3 spheres. Moves all 4 extremities. Motor tone is normal with no cogwheel rigidity. Skin has no petechiae or palpable purpura. Sclera have no icterus. Cranial nerves II through XII are functioning normally. Trachea is in the midline. Vesicular lung sounds. No rales or wheezes Heart rhythm is normal sinus with no murmur or gallop. Abdomen has mild ascites, but no tenderness. Wrists, shoulders, knees and ankles have no synovitis. No rheumatoid nodules or tophi. 1+ peripheral edema. DATA: Diagnostic tests reviewed for today's visit: [place] SPECT/CT CARDIAC AMYLOID: DATE OF EXAM: Dec 25 2023 3:56PM [facility] 0847 - [place] CARDIAC AMYLOID SPECT/CT / PROCEDURE REASON: Cardiac amyloidosis suspected, further testing * * * * Physician Interpretation * * * * RESULT: FL CTA Report: [facility] Date of service: 12/25/2023 3:18:39 PM CTAC interpreting physician: Nolberto Barillas MD PATIENT: Name: SAV RAYMUNDO Age: 73 years Gender: M 1. Incidental Findings from limited non-diagnostic CTAC: - Coronary calcifications visualized. 2. Small right and trace left pleural effusions. Right lateral approach proximal catheter in situ. Nonspecific small bilateral airspace opacities. Calcified coronary and aortic atherosclerosis. Trace pericardial fluid. Degenerative changes. * * * Final * * * Patient: Name: SAV RAYMUNDO Age: 73 years Gender: M CONCLUSIONS: 1. Not Consistent with TTR amyloidosis 2. Intense uptake at the right seventh lateral rib, likely secondary to underlying fracture, bland versus pathologic. Curvilinear uptake in the right ninth posterolateral rib with underlying subtle sclerosis; further evaluation to exclude metastatic disease, as clinically indicated. * Please note that a negative or mildly positive study does not exclude AL amyloid. In addition, equivocal results could represent AL amyloid or early ATTR. We suggest concomitant workup of AL amyloid with laboratory testing and pathologic assessment as appropriate. Nuclear Med Report: [id number] PLANAR and SPECT: Myocardial imaging of the chest with CT attenuation correction was performed at 3 hours post IV injection of Tc-99m Pyrophosphate. See administered doses below. 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 CT Dose R (more content not included)... [facility] 12-25-2023 Note HNO ID: [id number] Author: RAFIA TOVAR RT(R) Service: Nuclear Medicine Author Type: Technologist Type: Progress Notes Filed: 12/25/2023 11:02 Note Text: RADIOLOGY SERVICE PROGRESS NOTE SERVICE DATE: 12/25/2023 SERVICE TIME: 11:01 AM PATIENT IDENTITY VERIFICATION COMPLETED USING TWO (2) STANDARD IDENTIFIERS: Name and Date of confirmed by patient verbally FALL SCREENING: Has the patient had 2 falls in the last year or 1 fall with injury or currently using an Ambulatory Assistive Device (Walker, Cane, Wheelchair, Crutches, etc.)? Inpatient: Screened on floor PATIENT GENDER DATA: .male ALLERGIES: Reviewed and unchanged MEDICATIONS REVIEWED: Yes PATIENT RELEVANT IMPLANT DATA REVIEWED: Not Applicable PATIENT PRESENTS WITH AN IMPLANTABLE OR ATTACHED DIRECTOR REACTOR PROJECTS: No CREATININE: Creatinine Date Value Ref Range Status 12/25/2023 1.07 0.73 - 1.22 mg/dL Final 12/24/2023 1.27 (H) 0.73 - 1.22 mg/dL Final 12/24/2023 1.34 (H) 0.73 - 1.22 mg/dL Final Estimated Glomerular Filtration Rate Date Value Ref Range Status 12/25/2023 74 >=60 mL/min/1.73m? Final Comment: Estimated Glomerular Filtration Rate (eGFR) is calculated using the 2020 CKD-EPI creatinine equation. This equation utilizes serum creatinine, sex, and age as parameters. The creatinine assay has traceable calibration to isotope dilution-mass spectrometry. Refer to KDIGO guidelines for clinical interpretation. In patients with unstable renal function, e.g. those with acute kidney injury, the eGFR may not accurately reflect actual GFR. P.O.C.T. RESULTS: N/A December 25, [address] PERFORMED: No IV SITE: Inpatient - refer to LDA documentation POST EXAM PIV STATUS: Inpatient see [facility] documentation PROCEDURE TYPE: NM INJECT: AMYLOID SPECT CT. 24.0 mCi Tc99m HDP. No other medications given.. ADMINISTRATION TIME: 1100 PATIENT DISCHARGED TO: Patient taken to IP transport area for return to RNF/ICU/ED. A Diagnostic radioactive procedure has taken place, with no further precautions necessary other than routine body substance precautions. More information regarding radiation safety can be found using this link: [email or web address]%20Nuclear%20Medicine% [email or web address] SIGNATURE: RT Seema(R) PATIENT NAME: Sav Raymundo DATE: December 25, 2023 TIME: 11:01 AM PAGER/CONTACT #: [facility] 12-24-2023 Note HNO ID: [id number] Author: JOSE ANTONIO MEYERS MD Service: Family Practice Author Type: Physician Type: Progress Notes Filed: 12/24/2023 08:09 Note Text: INPATIENT PROGRESS NOTES PATIENT NAME: Sav Raymundo SERVICE DATE: 12/24/2023 SERVICE TIME: 8:05 AM ASSESSMENT AND PLAN Assessment: Anasarca of unknown etiology Recurrent pleural effusion Hypokalemia,K 3.8 Hypomagnesemia,1.9 Abdominal wall pain, resolved Hypotension Plan: Stop losartan, give fluid bolus LR 500 cc, monitor. Check BMP start. Decrease Lasix 80 mg p.o. daily. Await rheumatology input SUBJECTIVE CHIEF COMPLAINT: None PRIMARY SERVICE: Family Practice OBJECTIVE PHYSICAL EXAM: Patient Vitals for the past 24 hrs: BP Temp Temp src Pulse Resp SpO2 Weight 12/24/23 0735 92/61 36.8 ?C (98.2 ?F) Oral 72 17 92 % -- 12/24/23 0600 -- -- -- -- -- -- 91.9 kg (202 lb 9.6 oz) 12/24/23 0207 86/59 -- -- 86 -- -- -- 12/24/23 0149 88/51 36.6 ?C (97.9 ?F) Oral 83 12 94 % -- 12/23/23 1551 101/58 37 ?C (98.6 ?F) Oral 89 18 91 % -- Body mass index is 27.48 kg/m?. GENERAL: healthy, alert, no distress, cooperative NECK: no jugulovenous distention, no carotid bruits, carotid pulse normal contour, supple LUNGS: Lungs decreased breath sounds in bases good diaphragmatic excursion. CARDIAC: normal S1 and S2; no rubs, murmurs, or gallops ABDOMEN: Abdomen soft, non-tender. BS normal. No masses or organomegaly. EXTREMITIES: Extremities normal. No deformities, edema, clubbing or skin discoloration. NEURO: Gait normal. Reflexes normal and symmetric. Sensation grossly intact., Cranial nerves II-XII intact WOUND: not applicable DATA: Diagnostic tests reviewed for today's visit: Most recent labs CBC: No results for input(s): WBC , RBC , HB , HCT , PLT , MCV , MCH , MPV , RDW in the last 24 hours. CMP: No results for input(s): NA , K , CHLOR , CO2 , BUN , CREAT , GLUC , TPROT , CA , MG , ALBUMIN , TBILI , ALKPHOS , ALT , AST , ANION in the last 24 hours. SIGNATURE: Jose Antonio Meyers MD DATE: December 24, 2023 TIME: 8:05 AM [facility] 12-23-2023 Note HNO ID: [id number] Author: JOSE ANTONIO MEYERS MD Service: Family Practice Author Type: Physician Type: Progress Notes Filed: 12/23/2023 16:16 Note Text: INPATIENT PROGRESS NOTES PATIENT NAME: Sav Raymundo SERVICE DATE: 12/23/2023 SERVICE TIME: 4:11 PM ASSESSMENT AND PLAN Assessment: Anasarca of unknown etiology Recurrent pleural effusion, 125 cc drained right Pleurx Hypokalemia,K 3.8 Hypomagnesemia,1.9 Abdominal wall pain Plan: Stop Lasix drip, start Lasix 80 mg p.o. twice daily, Klor-Con 20 mEq p.o. daily and monitor lites. Patient was lost lots of weight, 231 lb-202 lb now. Rheumatology, Dr. Dial will turn from vacation on 12/24. SUBJECTIVE CHIEF COMPLAINT: Abdominal wall pain on changing body position PRIMARY SERVICE: Family Practice OBJECTIVE PHYSICAL EXAM: Patient Vitals for the past 24 hrs: BP Temp Temp src Pulse Resp SpO2 Weight 12/23/23 1551 101/58 37 ?C (98.6 ?F) Oral 89 18 91 % -- 12/23/23 0738 120/69 36.7 ?C (98.1 ?F) Oral 93 18 91 % -- 12/23/23 0600 -- -- -- -- -- -- 92.1 kg (203 lb 0.7 oz) 12/23/23 0007 111/66 36.8 ?C (98.2 ?F) Oral 96 16 94 % -- Body mass index is 27.54 kg/m?. GENERAL: healthy, alert, no distress, cooperative NECK: no jugulovenous distention, no carotid bruits, carotid pulse normal contour, supple LUNGS: Lungs clear to auscultation. Good diaphragmatic excursion. CARDIAC: normal S1 and S2; no rubs, murmurs, or gallops ABDOMEN: Abdomen soft, nondistended, mild abdominal wall tenderness. BS normal. No masses or organomegaly. EXTREMITIES: Extremities normal. No deformities, edema, clubbing or skin discoloration. NEURO: Gait normal. Reflexes normal and symmetric. Sensation grossly intact., Cranial nerves II-XII intact WOUND: not applicable DATA: Diagnostic tests reviewed for today's visit: Most recent labs CBC: No results for input(s): WBC , RBC , HB , HCT , PLT , MCV , MCH , MPV , RDW in the last 24 hours. CMP: Recent Labs 12/23/23 0732 NA 141 K 3.8 CHLOR 97* CO2 27 BUN 15 CREAT 1.14 GLUC 113* CA 9.5 MG 1.9 ANION 17* SIGNATURE: Jose Antonio Meyers MD DATE: December 23, 2023 TIME: 4:11 PM [facility] 12-23-2023 Note HNO ID: [id number] Author: LUPE BAUER RN Service: Care Management Author Type: Registered Nurse Type: Care Mgt Progress Note Filed: 12/23/2023 14:08 Note Text: CARE MANAGEMENT PROGRESS NOTE SERVICE DATE: 12/23/2023 SERVICE TIME: 2:04 PM LOS: 3 days Needs Prior to Discharge: Home Care Order Medical/Social barriers to discharge: anasarca, recent pleural effusion; right Pleurx, lasix drip Discharge plan: patient lives at home with his spouse. He is active with [facility] for alf and pleurx supplies. Plan home with resumption of [facility]. Will need home care orders for SN prior to discharge. CM following. SIGNATURE: Lupe Bauer RN PATIENT NAME: Sav Raymundo DATE: December 23, 2023 TIME: 2:04 PM PAGER/CONTACT #: [phone] [facility] 12-23-2023 Note HNO ID: [id number] Author: RUMA CHRISTINA PA-C Service: Thoracic Surgery Author Type: Physician Fruit Tester Type: Plan of Care Filed: 12/23/2023 07:53 Note Text: PLEASE PAGE [phone] WITH SURGICAL QUESTIONS OR CONCERNS. (This includes issues with chest tubes, surgical drains, feeding tubes, incisions or changes in clinical status). Thoracic Surgery - Plan of Care HPI: Sav Raymundo is a 73 y/o male referred by Alpa Oliva CNP for an opinion regarding management of recurrent right pleural effusion. 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 Simmons for recurrent right pleural effusion. Cytology revealed acute and chronic inflammation and was negative for malignant cells. Pleural biopsies revealed chronic pleuritis with focal reactive mesothelial hyperplasia, and showed no definitive evidence of malignancy. Since surgery he continues to drain 600-1150 cc of awilda pleural fluid every other day. He presented to Thoracic Clinic yesterday for postoperative visit, but had numerous other complaints: N/V, weight gain, abdominal distension, edema, and cough. Patient sent to ED for further work-up and management. CT Abd/Pel done revealed small volume abdominal and pelvic ascites and subcutaneous edema abdominal wall, flank regions and upper thighs. He responded well to iv lasix yesterday evening, and is to be started on IV lasix gtt today. BP 120/69 Pulse 93 Temp 36.7 ?C (98.1 ?F) (Oral) Resp 18 Ht 182.9 cm (6') Wt 92.1 kg (203 lb 0.7 oz) SpO2 91% BMI 27.54 kg/m? PLAN: - continue to drain pleurx daily while inpatient and then every other day once discharged or as needed for symptoms - will schedule follow up in Thoracic clinic in two weeks with CXR prior - lasix management per Primary Thoracic surgery will now sign off. Please do not hesitate to reach out with questions. Case discussed with Dr. Dwight Christina PA-C 12/23/2023 7:48 AM PAGER [phone] [facility] 12-22-2023 Note HNO ID: [id number] Author: JOSE ANTONIO MEYERS MD Service: Family Practice Author Type: Physician Type: Progress Notes Filed: 12/22/2023 11:06 Note Text: INPATIENT PROGRESS NOTES PATIENT NAME: Sav Raymundo SERVICE DATE: 12/22/2023 SERVICE TIME: 11:01 AM ASSESSMENT AND PLAN Assessment: Anasarca of unknown etiology Recurrent pleural effusion, 500 cc drained right Pleurx Hypokalemia Hypomagnesemia Abdominal pain Plan: Will continue Lasix drip at 10 mg/h, replace potassium and magnesium. Abdominal pain most likely secondary to abdominal wall pain due to electrolyte disturbances. I will order KUB. ESR-33, CRP 1.8. Await rheumatology input SUBJECTIVE CHIEF COMPLAINT: Abdominal pain especially on changing position PRIMARY SERVICE: Family Practice OBJECTIVE PHYSICAL EXAM: Patient Vitals for the past 24 hrs: BP Temp Temp src Pulse Resp SpO2 Weight 12/22/23 0824 109/67 37 ?C (98.6 ?F) Oral 102 20 96 % -- 12/22/23 0638 -- -- -- -- -- -- 94.8 kg (209 lb 1.6 oz) 12/21/23 2341 95/63 36.9 ?C (98.4 ?F) Oral 86 16 95 % -- 12/21/23 1702 117/66 37.1 ?C (98.8 ?F) Oral 87 16 94 % -- 12/21/23 1124 111/57 36.8 ?C (98.2 ?F) Oral 85 19 91 % -- Body mass index is 28.36 kg/m?. GENERAL: healthy, alert, no distress, cooperative NECK: no jugulovenous distention, no carotid bruits, carotid pulse normal contour, supple LUNGS: Lungs creased breath sounds in bases good diaphragmatic excursion. CARDIAC: normal S1 and S2; no rubs, murmurs, or gallops ABDOMEN: Abdomen soft, roslyn wall tenderness. BS normal. No masses or organomegaly. EXTREMITIES: Extremities normal. No deformities, less edema, no clubbing or skin discoloration. NEURO: Gait normal. Reflexes normal and symmetric. Sensation grossly intact., Cranial nerves II-XII intact WOUND: not applicable DATA: Diagnostic tests reviewed for today's visit: Most recent labs CBC: Recent Labs 12/22/23617 WBC 5.83 RBC 4.29 HB 12.7* HCT 39.3 PLT 250 MCV 91.6 MCH 29.6 MPV 10.2 CMP: Recent Labs 12/22/23 0618 12/21/23 1156 NA 139 138 K 3.3* 3.9 CHLOR 99 106 CO2 24 19* BUN 12 12 CREAT 0.98 0.86 GLUC 109* 115* TPROT -- 6.4 CA 9.0 8.7 MG 1.6* -- TBILI -- 0.8 ALKPHOS -- 100 ALT -- 11 AST -- 18 ANION 16* 13 SIGNATURE: Jose Antonio Meyers MD DATE: December 22, 2023 TIME: 11:01 AM [facility] 12-21-2023 Note HNO ID: [id number] Author: TRACY ROBLES LSW Service: Care Management Author Type: Soft Metals Hand Engraver Type: Care Mgt Initial Assessment Filed: 12/21/2023 13:04 Note Text: CARE MANAGEMENT: ASSESSMENT AND DISCHARGE PLAN SERVICE DATE: December 21, 2023 SERVICE TIME: 1:02 PM PCP: Yuli Mariscal DO Primary Contact: Extended Emergency Contact Information Primary Emergency Contact: Kimberly(HCPOA) Virgen Address: [address] [place] [address] [facility] Mobile Relation: Spouse Secondary Emergency Contact: Kimberly(1st alt HCPOA) Srinivas Address: [address] [place] [id number] Mobile Relation: Brother Admission Status: Inpatient Insurance Provider: [employer] MED[employer]ARE PPO Discharge Planning requested by: Per Department Practice Potential Transition Plans To Be Determined;Home Care Advance Directives Current Advance Directive: Health Care Power of Attendant Lodging Facilities;Living Will In Chart: Yes Current Living Arrangements and Support Lives with: Spouse/significant other Type of Residence: Support: How do you manage to accomplish the following: Independent: Ambulation Current Services/Equipment Current Post-Acute Service(s): Skilled Home Care Discharge Planning Patient Goal(s): Be able to go home, General wellness Be[place] of Choice Explained: Beaver of Choice Given: Yes Level of Care Discussed: Home Care Are you interested in bedside delivery of your medications? No Discharge Planning Participant(s): Spouse/significant other Patient/Family Comments: Caregiver Assessment: Transport at Discharge: Transportation Arrangements: Car Needs Prior to Discharge: Needs Prior to Discharge: To Be Determined Post-Acute Discharge Plan: Per chart review patient hx chronic pleural effusion since July 2023 , status post multiple thoracocentesis and VATS procedure on the right with biopsy,pleurodesis and Pleurx catheter placement on 11/20/2023 who presents with increased shortness of breath and increased pleural effusion. Sw spoke with patients spouse who stated patient indpend from home with her. Patient active with [facility]- provides PE supplies- referral placed. Spouse aware [facility] to follow for dc needs NEED [facility] ORDER. SIGNATURE: BERTA Benson PATIENT NAME: Sav Raymundo DATE: December 21, 2023 TIME: 1:02 PM CONTACT #: . [facility] 12-20-2023 Note HNO ID: [id number] Author: TITA LANDRY APRN.CNP Service: ? Author Type: Nurse Practitioner Type: Progress Notes Filed: 01/19/2024 21:56 Note Text: Heart, Vascular and Thoracic [place] DEPARTMENT OF THORACIC SURGERY OUTPATIENT VISIT DATE December 20, 2023 OUTPATIENT VISIT TYPE ESTABLISHED PT NAME: Sav Raymundo CLINIC NO: [id number] THORACIC SURGEON: Ronaldo Simmons M.D. DATE OF SERVICE: 12/20/2023 PRINCIPAL DX: Pleural Effusion SURGICAL HX 11/20/2023: R VATS pleural biopsy, right mechanic assistant and doxycycline pleurodesis, right Pleurx catheter insertion, right 20Fr chest tube insertion Surgical Pathology 11/20/2023: FINAL DIAGNOSIS A. Right pleura, biopsy: - Chronic pleuritis with mesothelial hyperplasia (see comment). B. Right pleura, biopsy: - Acute organizing and chronic pleuritis (see comment). TN/ 11/22/2023 Diagnosis Comment A. The biopsy contains pleural tissue with chronic inflammation and focal reactive mesothelial hyperplasia. An immunohistochemical stain for BAP 1 shows retained nuclear expression of the mesothelial cells. B. The pleura shows areas with extensive granulation tissue associated with reactive mesenchymal mesothelial proliferation. Immunohistochemical stains were performed to exclude the possibility of mesothelial or vascular neoplasm. The mesothelial proliferation is positive for cytokeratin CAM 5.2, cytokeratin AE1/AE3, WT1, and focally for calretinin and smooth muscle actin. The cytokeratin stains do not show extension of the mesothelial proliferation into deeper adjacent tissues. All cells are negative for claudin-4. ERG highlights the vascular network of thin walled vessels arranged mostly perpendicular to the pleural surface. A BAP 1 stain shows retained nuclear expression. PU 1 highlights numerous histiocytes associated with the reactive proliferation. Drs. Della Subramanian and [facility] have also reviewed this case and agree that there is no definitive evidence of malignancy. Right pleural fluid cytology: FINAL DIAGNOSIS A - Pleural Cavity, Right, Fluid, Thoracentesis - Right pleural fluid Negative for malignant cells. Acute and chronic inflammation. The following cell blocks were associated with this case: A1 Cell Block, Alcohol Fixed ON FOR VISIT: Post-operative visit HPI: Sav Raymundo is a 73 year old male with a PmHX significant for HTN, hyperlipidemia, gout, GERD. Patient seen 07/2023 for a few months lasting cough. He had a chest CT on 08/15/23 showing moderate R pleural effusion. He had thoracentesis twice on 09/04/23 and 10/01/2023, cytology was negative both times and chemical analysis was consistent with an exudate. The right pleural effusion persists per most recent CT on 10/18/23. He also has a small to moderate pericardial effusion seen on imaging and on ECHO that was done in 09/04/23, otherwise with good cardiac function(pericardial effusion almost completely resolved on last CT). Imaging has also been consistent with small to moderate left pleural effusion that has almost completely resolved on last CT. PHYSICAL EXAM: VITAL SIGNS: Temp 36.3 ?C (97.3 ?F) (Temporal) Resp 18 Ht 182.9 cm (6') Wt 104.8 kg (231 lb) SpO2 100% BMI 31.33 kg/m? Room air BP 124/80 HR 69 Incision location: Right Thoracoport sites Incision Assessment: Well approximated and no drainage, swelling, erythema or warmth Drain/Tubes: Pleurex Catheter-dressing C/D/I GENERAL: Ill-appearing HEENT: normocephalic, midline, anicteric sclera. LUNGS: clear to auscultation, no wheezing or rhonchi HEART: RRR without murmur ABDOMEN: Distended, + anasarca EXTREMITIES: No clubbing, cyanosis, +2 BLE pitting edema MUSCULOSKELETAL: Muscular strength intact. SKIN: turgor normal, no suspicious rashes or lesions NEURO: Gait normal. Sensation grossly intact. IMAGING/TESTS: CXR 12/20/2023: PENDING INTERVAL HISTORY: Sav Raymundo presents to clinic today for postoperative visit. States he has not been doing well since last visit. Notes that he ate half of a sandwich and salad on Saturday afternoon after our visit, and became full very easily. He was then very tired and nauseated that evening, and ended up throwing up 3 times that night. Notes that he only felt slightly better after vomiting. He also reports frequent diarrhea, to the point where he is having episodes of incontinence. He took metamucil and it seems to have taken the edge off of the diarrhea. He denies any fevers, but has noted that he has been cold ever since surgery. Notes that he is constantly nauseated and is only able to eat half of what he normally eats because he becomes full so easily. Despite eating less, he has gained 6 lbs in the past 2.5 weeks. He reports worsening swelling in legs and abdomen. He reports pain along bot (more content not included)... [facility] 12-20-2023 History of Present illness Narrative Heart, Vascular and Thoracic [place] DEPARTMENT OF THORACIC SURGERY OUTPATIENT VISIT DATE December 20, 2023 OUTPATIENT VISIT TYPE ESTABLISHED PT NAME: Sav Cantu [facility] NO: [id number] THORACIC SURGEON: Ronaldo Simmons M.D. DATE OF SERVICE: 12/20/2023 PRINCIPAL DX: Pleural Effusion SURGICAL HX 11/20/2023: R VATS pleural biopsy, right mechanic assistant and doxycycline pleurodesis, right Pleurx catheter insertion, right 20Fr chest tube insertion Surgical Pathology 11/20/2023: FINAL DIAGNOSIS A. Right pleura, biopsy: - Chronic pleuritis with mesothelial hyperplasia (see comment). B. Right pleura, biopsy: - Acute organizing and chronic pleuritis (see comment). TN/ 11/22/2023 Diagnosis Comment A. The biopsy contains pleural tissue with chronic inflammation and focal reactive mesothelial hyperplasia. An immunohistochemical stain for BAP 1 shows retained nuclear expression of the mesothelial cells. B. The pleura shows areas with extensive granulation tissue associated with reactive mesenchymal mesothelial proliferation. Immunohistochemical stains were performed to exclude the possibility of mesothelial or vascular neoplasm. The mesothelial proliferation is positive for cytokeratin CAM 5.2, cytokeratin AE1/AE3, WT1, and focally for calretinin and smooth muscle actin. The cytokeratin stains do not show extension of the mesothelial proliferation into deeper adjacent tissues. All cells are negative for claudin-4. ERG highlights the vascular network of thin walled vessels arranged mostly perpendicular to the pleural surface. A BAP 1 stain shows retained nuclear expression. PU 1 highlights numerous histiocytes associated with the reactive proliferation. Drs. Della Subramanian and Zeus Hinton have also reviewed this case and agree that there is no definitive evidence of malignancy. Right pleural fluid cytology: FINAL DIAGNOSIS A - Pleural Cavity, Right, Fluid, Thoracentesis - Right pleural fluid Negative for malignant cells. Acute and chronic inflammation. The following cell blocks were associated with this case: A1 Cell Block, Alcohol Fixed ON FOR VISIT: Post-operative visit HPI: Sav Raymundo is a 73 year old male with a PmHX significant for HTN, hyperlipidemia, gout, GERD. Patient seen 07/2023 for a few months lasting cough. He had a chest CT on 08/15/23 showing moderate R pleural effusion. He had thoracentesis twice on 09/04/23 and 10/01/2023, cytology was negative both times and chemical analysis was consistent with an exudate. The right pleural effusion persists per most recent CT on 10/18/23. He also has a small to moderate pericardial effusion seen on imaging and on ECHO that was done in 09/04/23, otherwise with good cardiac function(pericardial effusion almost completely resolved on last CT). Imaging has also been consistent with small to moderate left pleural effusion that has almost completely resolved on last CT. PHYSICAL EXAM: VITAL SIGNS: Temp 36.3 C (97.3 F) (Temporal) Resp 18 Ht 182.9 cm (6') Wt 104.8 kg (231 lb) SpO2 100% BMI 31.33 kg/m Room air BP 124/80 HR 69 Incision location: Right Thoracoport sites Incision Assessment: Well approximated and no drainage, swelling, erythema or warmth Drain/Tubes: Pleurex Catheter-dressing C/D/I GENERAL: Ill-appearing HEENT: normocephalic, midline, anicteric sclera. LUNGS: clear to auscultation, no wheezing or rhonchi HEART: RRR without murmur ABDOMEN: Distended, + anasarca EXTREMITIES: No clubbing, cyanosis, +2 BLE pitting edema MUSCULOSKELETAL: Muscular strength intact. SKIN: turgor normal, no suspicious rashes or lesions NEURO: Gait normal. Sensation grossly intact. IMAGING/TESTS: CXR 12/20/2023: PENDING INTERVAL HISTORY: Sav Raymundo presents to clinic today for postoperative visit. States he has not been doing well since last visit. Notes that he ate half of a sandwich and salad on Saturday afternoon after our visit, and became full very easily. He was then very tired and nauseated that evening, and ended up throwing up 3 times that night. Notes that he only felt slightly better after vomiting. He also reports frequent diarrhea, to the point where he is having episodes of incontinence. He took metamucil and it seems to have taken the edge off of the diarrhea. He denies any fevers, but has noted that he has been cold ever since surgery. Notes that he is constantly nauseated and is only able to eat half of what he normally eats because he becomes full so easily. Despite eating less, he has gained 6 lbs in the past 2.5 weeks. He reports worsening swelling in legs and abdomen. He reports pain along both sides of his abdomen d/t the swelling. He also notes that his cough is worsening, to the point where he is gagging/vomiting. Reports he threw up his entire meal after his left pleurx was drained on 12/15 d/t coughing. States he has been having a lot of sinus drainage this past week and is coughing up a lot of phlegm. Right pleurx drainage as follows: 12/15 1150 cc 12/17 1000 cc Right pleurx catheter with 950 cc of awilda drainage out in clinic today; drained by Jessica Enriquez RN. IMPRESSION: 73 year old male with pmh significant for recurrent right pleural effusion s/p R VATS pleural biopsy, right mechanic assistant and doxycycline pleurodesis, right Pleurx catheter insertion, right 20Fr chest tube insertion on 11/20/[address] Simmons. Patient has not been doing well since last visit on 12/13/2023 with c/o N/V, abdominal pain, diarrhea, weight gain, and edema. CXR from today is still pending; to my eye, shows stable right pleural effusion. Patient continues to drain large amounts from pleurx catheter every other day. PLAN: -Instructed patient to present to ED for further work-up and evaluation of N/V, abdominal pain, diarrhea, weight gain, and edema Part of this note was copied from my previous note, all content has been individually and thoroughly reviewed, updated as necessary, patient assessed with updated information, and changes appropriately documented/adjusted. Tita Landry APRN.ATTORNEY LAW CLERK documented in this encounter [facility] 12-17-2023 Miscellaneous Notes Images from the original note were not included. [facility] [place] Phone Encounter DATE of SERVICE: 12/17/2023 TIME of SERVICE: 9:39 AM Status: Non-urgent, needs attention Service/Provider: Thoracic Surgery Ronaldo Simmons M.D. Reason for call: Other Issue Contact information: [phone] Resolution: Sent to [employer] Comments: Received call from [facility] Nurse. States she saw patient yesterday. He did not have a good weekend. Nausea/Vomiting, diarrhea, increase in pain with coughing while drain being emptied. She will see him again tomorrow but wanted to update office. We called patient to see how he was doing today. States he feels same. No better no worse. Able to keep some food down. Does not feel he needs to go to ED. States he feels he can wait to be seen this saturday. [facility] will be there tomorrow. Please advise if any further recommendations Pearl Lopez RN Date of Resolution: 12/17/2023 Time of Resolution 9:39 AM documented in this encounter [facility] 12-17-2023 Telephone encounter Note Images from the original note were not included. [facility] [place] Phone Encounter DATE of SERVICE: 12/17/2023 TIME of SERVICE: 9:39 AM Status: Non-urgent, needs attention Service/Provider: Thoracic Surgery Ronaldo Simmons M.D. Reason for call: Other Issue Contact information: [phone] Resolution: Sent to [employer] Comments: Received call from [facility] Nurse. States she saw patient yesterday. He did not have a good weekend. Nausea/Vomiting, diarrhea, increase in pain with coughing while drain being emptied. She will see him again tomorrow but wanted to update office. We called patient to see how he was doing today. States he feels same. No better no worse. Able to keep some food down. Does not feel he needs to go to ED. States he feels he can wait to be seen this saturday. [facility] will be there tomorrow. Please advise if any further recommendations Pearl Lopez RN Date of Resolution: 12/17/2023 Time of Resolution 9:39 AM [facility] 12-13-2023 Note HNO ID: [id number] Author: TITA LANDRY APRN.ATTORNEY LAW CLERK Service: ? Author Type: Nurse Practitioner Type: Progress Notes Filed: 01/16/2024 22:44 Note Text: [facility] [place] DEPARTMENT OF THORACIC SURGERY OUTPATIENT VISIT DATE December 13, 2023 OUTPATIENT VISIT TYPE ESTABLISHED PT NAME: [facility] NO: [id number] THORACIC SURGEON: Ronaldo Simmons M.D. DATE OF SERVICE: 12/13/2023 PRINCIPAL DX: Pleural Effusion SURGICAL HX 11/20/2023: R VATS pleural biopsy, right mechanic assistant and doxycycline pleurodesis, right Pleurx catheter insertion, right 20Fr chest tube insertion Surgical Pathology 11/20/2023: FINAL DIAGNOSIS A. Right pleura, biopsy: - Chronic pleuritis with mesothelial hyperplasia (see comment). B. Right pleura, biopsy: - Acute organizing and chronic pleuritis (see comment). [place]/ 11/22/2023 Diagnosis Comment A. The biopsy contains pleural tissue with chronic inflammation and focal reactive mesothelial hyperplasia. An immunohistochemical stain for BAP 1 shows retained nuclear expression of the mesothelial cells. B. The pleura shows areas with extensive granulation tissue associated with reactive mesenchymal mesothelial proliferation. Immunohistochemical stains were performed to exclude the possibility of mesothelial or vascular neoplasm. The mesothelial proliferation is positive for cytokeratin CAM 5.2, cytokeratin AE1/AE3, WT1, and focally for calretinin and smooth muscle actin. The cytokeratin stains do not show extension of the mesothelial proliferation into deeper adjacent tissues. All cells are negative for claudin-4. ERG highlights the vascular network of thin walled vessels arranged mostly perpendicular to the pleural surface. A BAP 1 stain shows retained nuclear expression. PU 1 highlights numerous histiocytes associated with the reactive proliferation. Drs. Della Subramanian and Zeus Hinton have also reviewed this case and agree that there is no definitive evidence of malignancy. Right pleural fluid cytology: FINAL DIAGNOSIS A - Pleural Cavity, Right, Fluid, Thoracentesis - Right pleural fluid Negative for malignant cells. Acute and chronic inflammation. The following cell blocks were associated with this case: A1 Cell Block, Alcohol Fixed ON FOR VISIT: Post-operative visit HPI: Sav Raymundo is a 73 year old male with a PmHX significant for HTN, hyperlipidemia, gout, GERD. Patient seen 07/2023 for a few months lasting cough. He had a chest CT on 08/15/23 showing moderate R pleural effusion. He had thoracentesis twice on 09/04/23 and 10/01/2023, cytology was negative both times and chemical analysis was consistent with an exudate. The right pleural effusion persists per most recent CT on 10/18/23. He also has a small to moderate pericardial effusion seen on imaging and on ECHO that was done in 09/04/23, otherwise with good cardiac function(pericardial effusion almost completely resolved on last CT). Imaging has also been consistent with small to moderate left pleural effusion that has almost completely resolved on last CT. PHYSICAL EXAM: VITAL SIGNS: BP 129/80 (BP Site: Left Arm, BP Position: Sitting, BP Cuff Size: Regular Adult) Pulse 68 Temp 36.3 ?C (97.3 ?F) (Temporal) Resp 16 Ht 182.9 cm (6') Wt 104 kg (229 lb 4.8 oz) SpO2 99% BMI 31.10 kg/m? Room air Incision location: Right Thoracoport sites Incision Assessment: Well approximated and no drainage, swelling, erythema or warmth Drain/Tubes: Pleurex Catheter GENERAL: well appearing, alert, no acute distress, well-hydrated, well nourished HEENT: normocephalic, midline, anicteric sclera. LUNGS: clear to auscultation with the exception of diminished right lower lung field HEART: RRR without murmur ABDOMEN: Soft, non-tender, non distended. No masses EXTREMITIES: No clubbing, cyanosis or edema. MUSCULOSKELETAL: Muscular strength intact. SKIN: turgor normal, no suspicious rashes or lesions NEURO: Gait normal. Sensation grossly intact. IMAGING/TESTS: CXR 12/13/2023: PENDING INTERVAL HISTORY: Sav Raymundo presents to clinic today for postoperative visit. Patient denies any recent hospitalizations since last visit. Denies any fevers or night sweats, but notes chills ever since being started on the metoprolol. States breathing still is becomes shallower prior to pleurx needing drained. Right pleurx drainage as follows: 12/05: 725 cc 12/08: 650 cc 12/10: 500 cc Right pleurx catheter with 500 cc of awilda drainage out in clinic today. IMPRESSION: 73 year old male with pmh significant for recurrent right pleural effusion s/p R VATS pleural biopsy, right mechanic assistant and doxycycline pleurodesis, right Pleurx catheter insertion, right 20Fr chest tube insertion on 11/20/[address] Simmons. Patient overall doing (more content not included)... [facility] 12-13-2023 History of Present illness Narrative [facility] [place] DEPARTMENT OF THORACIC SURGERY OUTPATIENT VISIT DATE December 13, 2023 OUTPATIENT VISIT TYPE ESTABLISHED PT NAME: Sav Raymundo CLINIC NO: [id number] THORACIC SURGEON: Ronaldo Simmons M.D. DATE OF SERVICE: 12/13/2023 PRINCIPAL DX: Pleural Effusion SURGICAL HX 11/20/2023: R VATS pleural biopsy, right mechanic assistant and doxycycline pleurodesis, right Pleurx catheter insertion, right 20Fr chest tube insertion Surgical Pathology 11/20/2023: FINAL DIAGNOSIS A. Right pleura, biopsy: - Chronic pleuritis with mesothelial hyperplasia (see comment). B. Right pleura, biopsy: - Acute organizing and chronic pleuritis (see comment). [place]/ 11/22/2023 Diagnosis Comment A. The biopsy contains pleural tissue with chronic inflammation and focal reactive mesothelial hyperplasia. An immunohistochemical stain for BAP 1 shows retained nuclear expression of the mesothelial cells. B. The pleura shows areas with extensive granulation tissue associated with reactive mesenchymal mesothelial proliferation. Immunohistochemical stains were performed to exclude the possibility of mesothelial or vascular neoplasm. The mesothelial proliferation is positive for cytokeratin CAM 5.2, cytokeratin AE1/AE3, WT1, and focally for calretinin and smooth muscle actin. The cytokeratin stains do not show extension of the mesothelial proliferation into deeper adjacent tissues. All cells are negative for claudin-4. ERG highlights the vascular network of thin walled vessels arranged mostly perpendicular to the pleural surface. A BAP 1 stain shows retained nuclear expression. PU 1 highlights numerous histiocytes associated with the reactive proliferation. Drs. Della Subramanian and Zeus Hinton have also reviewed this case and agree that there is no definitive evidence of malignancy. Right pleural fluid cytology: FINAL DIAGNOSIS A - Pleural Cavity, Right, Fluid, Thoracentesis - Right pleural fluid Negative for malignant cells. Acute and chronic inflammation. The following cell blocks were associated with this case: A1 Cell Block, Alcohol Fixed ON FOR VISIT: Post-operative visit HPI: Sav Raymundo is a 73 year old male with a PmHX significant for HTN, hyperlipidemia, gout, GERD. Patient seen 07/2023 for a few months lasting cough. He had a chest CT on 08/15/23 showing moderate R pleural effusion. He had thoracentesis twice on 09/04/23 and 10/01/2023, cytology was negative both times and chemical analysis was consistent with an exudate. The right pleural effusion persists per most recent CT on 10/18/23. He also has a small to moderate pericardial effusion seen on imaging and on ECHO that was done in 09/04/23, otherwise with good cardiac function(pericardial effusion almost completely resolved on last CT). Imaging has also been consistent with small to moderate left pleural effusion that has almost completely resolved on last CT. PHYSICAL EXAM: VITAL SIGNS: BP 129/80 (BP Site: Left Arm, BP Position: Sitting, BP Cuff Size: Regular Adult) Pulse 68 Temp 36.3 C (97.3 F) (Temporal) Resp 16 Ht 182.9 cm (6') Wt 104 kg (229 lb 4.8 oz) SpO2 99% BMI 31.10 kg/m Room air Incision location: Right Thoracoport sites Incision Assessment: Well approximated and no drainage, swelling, erythema or warmth Drain/Tubes: Pleurex Catheter GENERAL: well appearing, alert, no acute distress, well-hydrated, well nourished HEENT: normocephalic, midline, anicteric sclera. LUNGS: clear to auscultation with the exception of diminished right lower lung field HEART: RRR without murmur ABDOMEN: Soft, non-tender, non distended. No masses EXTREMITIES: No clubbing, cyanosis or edema. MUSCULOSKELETAL: Muscular strength intact. SKIN: turgor normal, no suspicious rashes or lesions NEURO: Gait normal. Sensation grossly intact. IMAGING/TESTS: CXR 12/13/2023: PENDING INTERVAL HISTORY: Sav Raymundo presents to clinic today for postoperative visit. Patient denies any recent hospitalizations since last visit. Denies any fevers or night sweats, but notes chills ever since being started on the metoprolol. States breathing still is becomes shallower prior to pleurx needing drained. Right pleurx drainage as follows: 12/05: 725 cc 12/08: 650 cc 12/10: 500 cc Right pleurx catheter with 500 cc of awilda drainage out in clinic today. IMPRESSION: 73 year old male with pmh significant for recurrent right pleural effusion s/p R VATS pleural biopsy, right mechanic assistant and doxycycline pleurodesis, right Pleurx catheter insertion, right 20Fr chest tube insertion on 11/20/[address] Simmons. Patient overall doing well from a clinical standpoint. CXR from today is still pending; to my eye, shows stable right pleural effusion. Patient continues to drain large amounts from pleurx catheter every other day. PLAN: -Follow-up in 1 week with CXR and ATTORNEY LAW CLERK visit; sooner if experiencing new/worsening clinical symptoms -Continue to drain pleurx every other day Part of this note was copied from my previous note, all content has been individually and thoroughly reviewed, updated as necessary, patient assessed with updated information, and changes appropriately documented/adjusted. Tita Landry APRN.ATTORNEY LAW CLERK documented in this encounter [facility] 12-03-2023 Telephone encounter Note Confirmed date and time of apts w/ patient and his via phone. Both have access to MyChart. PF 12/13/2023 at [place] CXR at 1:30pm Est 1 week follow up w/ Tita Landry at 2pm Per staff message from [facility]: please schedule patient for follow-up with me with CXR in 1 week [facility] 12-03-2023 Miscellaneous Notes Confirmed date and time of apts w/ patient and his via phone. Both have access to MyChart. PF 12/13/2023 at [place] CXR at 1:30pm Est 1 week follow up w/ Tita Landry at 2pm Per staff message from [facility]: please schedule patient for follow-up with me with CXR in 1 week documented in this encounter [facility] 12-03-2023 Nurse Note Patient stated he was having SOB. Pleur x drained yesterday for 1075ml. Attempted to drain pleur x today no drainage present. Applied dressing. Jessica Enriquez RN [facility] 12-03-2023 Nurse Note Patient stated he was having SOB. Pleur x drained yesterday for 1075ml. Attempted to drain pleur x today no drainage present. Applied dressing. Jessica Enriquez RN documented in this encounter [facility] 12-03-2023 Note HNO ID: [id number] Author: TITA LANDRY APRN.ATTORNEY LAW CLERK Service: ? Author Type: Nurse Practitioner Type: Progress Notes Filed: 12/30/2023 22:10 Note Text: [facility] [place] DEPARTMENT OF THORACIC SURGERY OUTPATIENT VISIT DATE December 03, 2023 OUTPATIENT VISIT TYPE ESTABLISHED PT NAME: Sav Raymundo [facility] NO: [id number] THORACIC SURGEON: Ronaldo Simmons M.D. DATE OF SERVICE: 12/03/2023 PRINCIPAL DX: Recurrent Right Pleural Effusion SURGICAL HX 11/20/2023: R VATS pleural biopsy, right mechanic assistant and doxycycline pleurodesis, right Pleurx catheter insertion, right 20Fr chest tube insertion Surgical Pathology 11/20/2023: Component FINAL DIAGNOSIS A. Right pleura, biopsy: - Chronic pleuritis with mesothelial hyperplasia (see comment). B. Right pleura, biopsy: - Acute organizing and chronic pleuritis (see comment). [place]/ 11/22/2023 Diagnosis Comment A. The biopsy contains pleural tissue with chronic inflammation and focal reactive mesothelial hyperplasia. An immunohistochemical stain for BAP 1 shows retained nuclear expression of the mesothelial cells. B. The pleura shows areas with extensive granulation tissue associated with reactive mesenchymal mesothelial proliferation. Immunohistochemical stains were performed to exclude the possibility of mesothelial or vascular neoplasm. The mesothelial proliferation is positive for cytokeratin CAM 5.2, cytokeratin AE1/AE3, WT1, and focally for calretinin and smooth muscle actin. The cytokeratin stains do not show extension of the mesothelial proliferation into deeper adjacent tissues. All cells are negative for claudin-4. ERG highlights the vascular network of thin walled vessels arranged mostly perpendicular to the pleural surface. A BAP 1 stain shows retained nuclear expression. PU 1 highlights numerous histiocytes associated with the reactive proliferation. D[facility]. Della Subramanian [facility] have also reviewed this case and agree that there is no definitive evidence of malignancy Right pleural fluid cytology: FINAL DIAGNOSIS A - Pleural Cavity, Right, Fluid, Thoracentesis - Right pleural fluid Negative for malignant cells. Acute and chronic inflammation. The following cell blocks were associated with this case: A1 Cell Block, Alcohol Fixed ON FOR VISIT: Post-operative visit HPI: Sav Raymundo is a 73 year old male with a PmHX significant for HTN, hyperlipidemia, gout, GERD. Patient seen 07/2023 for a few months lasting cough. He had a chest CT on 08/15/23 showing moderate R pleural effusion. He had thoracentesis twice on 09/04/23 and 10/01/2023, cytology was negative both times and chemical analysis was consistent with an exudate. The right pleural effusion persists per most recent CT on 10/18/23. He also has a small to moderate pericardial effusion seen on imaging and on ECHO that was done in 09/04/23, otherwise with good cardiac function(pericardial effusion almost completely resolved on last CT). Imaging has also been consistent with small to moderate left pleural effusion that has almost completely resolved on last CT. On 11/20/2023, patient underwent R VATS pleural biopsy, right mechanic assistant and doxycycline pleurodesis, right Pleurx catheter insertion, right 20Fr chest tube insertion. Postoperative course was unremarkable and patient was discharged home on 11/23/2023. PHYSICAL EXAM: VITAL SIGNS: BP 120/78 (BP Site: Left Arm, BP Position: Sitting, BP Cuff Size: Regular Adult) Pulse 74 Temp 36.6 ?C (97.8 ?F) (Temporal) Resp 14 Ht 182.9 cm (6') Wt 102.4 kg (225 lb 11.2 oz) SpO2 98% BMI 30.61 kg/m? Room air Incision location: Right Thoracoport sites Incision Assessment: Well approximated and no drainage, swelling, erythema or warmth Drain/Tubes: Pleurex Catheter GENERAL: well appearing, alert, no acute distress, well-hydrated, well nourished HEENT: normocephalic, midline, anicteric sclera. LUNGS: clear to auscultation, no wheezing or rhonchi HEART: RRR without murmur ABDOMEN: Soft, non-tender, non distended. No masses EXTREMITIES: No clubbing, cyanosis or edema. MUSCULOSKELETAL: Muscular strength intact. SKIN: turgor normal, no suspicious rashes or lesions NEURO: Gait normal. Sensation grossly intact. IMAGING/TESTS: CXR 12/03/2023: PENDING INTERVAL HISTORY: Sav Raymundo presents to clinic today for postoperative visit. States breathing is stable. Did not notice much improvement after 5 day course of lasix. States pleurx was last drained yesterday by [facility] with 1,025 cc out. Did not drain in clinic today. Reviewed final pathology results which showshronic pleuritis with mesothelial hyperplasia, with no definitive evidence of malignancy. Patient's voices frustration that the cause of the patient's recurrent effusion is still (more content not included)... [facility] 12-03-2023 History of Present illness Narrative Heart[facility] V[facility] [place] DEPARTMENT OF THORACIC SURGERY OUTPATIENT VISIT DATE December 03, 2023 OUTPATIENT VISIT TYPE ESTABLISHED PT NAME: Sav Raymundo CLINIC NO: [id number] THORACIC SURGEON: Ronaldo Simmons M.D. DATE OF SERVICE: 12/03/2023 PRINCIPAL DX: Recurrent Right Pleural Effusion SURGICAL HX 11/20/2023: R VATS pleural biopsy, right mechanic assistant and doxycycline pleurodesis, right Pleurx catheter insertion, right 20Fr chest tube insertion Surgical Pathology 11/20/2023: Component FINAL DIAGNOSIS A. Right pleura, biopsy: - Chronic pleuritis with mesothelial hyperplasia (see comment). B. Right pleura, biopsy: - Acute organizing and chronic pleuritis (see comment). TN/ 11/22/2023 Diagnosis Comment A. The biopsy contains pleural tissue with chronic inflammation and focal reactive mesothelial hyperplasia. An immunohistochemical stain for BAP 1 shows retained nuclear expression of the mesothelial cells. B. The pleura shows areas with extensive granulation tissue associated with reactive mesenchymal mesothelial proliferation. Immunohistochemical stains were performed to exclude the possibility of mesothelial or vascular neoplasm. The mesothelial proliferation is positive for cytokeratin CAM 5.2, cytokeratin AE1/AE3, WT1, and focally for calretinin and smooth muscle actin. The cytokeratin stains do not show extension of the mesothelial proliferation into deeper adjacent tissues. All cells are negative for claudin-4. ERG highlights the vascular network of thin walled vessels arranged mostly perpendicular to the pleural surface. A BAP 1 stain shows retained nuclear expression. PU 1 highlights numerous histiocytes associated with the reactive proliferation. Drs. Della Subramanian and Zeus Hinton have also reviewed this case and agree that there is no definitive evidence of malignancy Right pleural fluid cytology: FINAL DIAGNOSIS A - Pleural Cavity, Right, Fluid, Thoracentesis - Right pleural fluid Negative for malignant cells. Acute and chronic inflammation. The following cell blocks were associated with this case: A1 Cell Block, Alcohol Fixed ON FOR VISIT: Post-operative visit HPI: Sav Raymundo is a 73 year old male with a PmHX significant for HTN, hyperlipidemia, gout, GERD. Patient seen 07/2023 for a few months lasting cough. He had a chest CT on 08/15/23 showing moderate R pleural effusion. He had thoracentesis twice on 09/04/23 and 10/01/2023, cytology was negative both times and chemical analysis was consistent with an exudate. The right pleural effusion persists per most recent CT on 10/18/23. He also has a small to moderate pericardial effusion seen on imaging and on ECHO that was done in 09/04/23, otherwise with good cardiac function(pericardial effusion almost completely resolved on last CT). Imaging has also been consistent with small to moderate left pleural effusion that has almost completely resolved on last CT. On 11/20/2023, patient underwent R VATS pleural biopsy, right mechanic assistant and doxycycline pleurodesis, right Pleurx catheter insertion, right 20Fr chest tube insertion. Postoperative course was unremarkable and patient was discharged home on 11/23/2023. PHYSICAL EXAM: VITAL SIGNS: BP 120/78 (BP Site: Left Arm, BP Position: Sitting, BP Cuff Size: Regular Adult) Pulse 74 Temp 36.6 C (97.8 F) (Temporal) Resp 14 Ht 182.9 cm (6') Wt 102.4 kg (225 lb 11.2 oz) SpO2 98% BMI 30.61 kg/m Room air Incision location: Right Thoracoport sites Incision Assessment: Well approximated and no drainage, swelling, erythema or warmth Drain/Tubes: Pleurex Catheter GENERAL: well appearing, alert, no acute distress, well-hydrated, well nourished HEENT: normocephalic, midline, anicteric sclera. LUNGS: clear to auscultation, no wheezing or rhonchi HEART: RRR without murmur ABDOMEN: Soft, non-tender, non distended. No masses EXTREMITIES: No clubbing, cyanosis or edema. MUSCULOSKELETAL: Muscular strength intact. SKIN: turgor normal, no suspicious rashes or lesions NEURO: Gait normal. Sensation grossly intact. IMAGING/TESTS: CXR 12/03/2023: PENDING INTERVAL HISTORY: Sav Raymundo presents to clinic today for postoperative visit. States breathing is stable. Did not notice much improvement after 5 day course of lasix. States pleurx was last drained yesterday by [facility] with 1,025 cc out. Did not drain in clinic today. Reviewed final pathology results which showshronic pleuritis with mesothelial hyperplasia, with no definitive evidence of malignancy. Patient's voices frustration that the cause of the patient's recurrent effusion is still unknown. Dr. Simmons in to see patient. He also reviewed pathology/cytology results. Patient and his 's questions answered IMPRESSION: 73 year old male with pmh significant for recurrent right pleural effusion s/p R VATS pleural biopsy, right mechanic assistant and doxycycline pleurodesis, right Pleurx catheter insertion, right 20Fr chest tube insertion on 11/20/[address] Simmons. Patient overall doing well from a clinical standpoint. CXR from today is still pending; to my eye, shows stable right pleural effusion. Patient continues to drain large amounts from pleurx catheter every other day. PLAN: -Follow-up in 1 week with CXR and ATTORNEY LAW CLERK visit; sooner if experiencing new/worsening clinical symptoms -Continue to drain pleurx every other day Part of this note was copied from my previous note, all content has been individually and thoroughly reviewed, updated as necessary, patient assessed with updated information, and changes appropriately documented/adjusted. Tita Landry APRN.CNP documented in this encounter [facility] 12-03-2023 History of Present illness Narrative Radiology Service Progress Note PATIENT NAME: Sav Raymundo DATE OF SERVICE: December 03, 2023 TIME: 12:26 PM PATIENT IDENTITY VERIFICATION COMPLETED USING TWO (2) IDENTIFIERS: Name and Date of confirmed by patient verbally and Name and Date of confirmed by identification band. FALL SCREENING: Has the patient had 2 falls in the last year or 1 fall with injury or currently using an Ambulatory Assistive Device (Walker, Cane, Wheelchair, Crutches, etc.)? No PATIENT GENDER DATA: Male PATIENT RELEVANT IMPLANT DATA REVIEWED: Yes PATIENT PRESENTS WITH AN IMPLANTABLE OR ATTACHED DIRECTOR REACTOR PROJECTS: No RADIOLOGY DEPARTMENT: General X-ray: Exam(s) Completed: Chest X-Ray PERIPHERAL IV DATA: Not applicable SIGNED BY: IMAN Hernández) December 03, 2023 12:26 PM documented in this encounter [facility] 12-03-2023 Note HNO ID: [id number] Author: ISAMAR GUEVARA RT (R) Service: Radiology Author Type: Technologist Type: Progress Notes Filed: 12/03/2023 12:26 Note Text: Radiology Service Progress Note PATIENT NAME: Sav Raymundo DATE OF SERVICE: December 03, 2023 TIME: 12:26 PM PATIENT IDENTITY VERIFICATION COMPLETED USING TWO (2) IDENTIFIERS: Name and Date of confirmed by patient verbally and Name and Date of confirmed by identification band. FALL SCREENING: Has the patient had 2 falls in the last year or 1 fall with injury or currently using an Ambulatory Assistive Device (Walker, Cane, Wheelchair, Crutches, etc.)? No PATIENT GENDER DATA: Male PATIENT RELEVANT IMPLANT DATA REVIEWED: Yes PATIENT PRESENTS WITH AN IMPLANTABLE OR ATTACHED DIRECTOR REACTOR PROJECTS: No RADIOLOGY DEPARTMENT: General X-ray: Exam(s) Completed: Chest X-Ray PERIPHERAL IV DATA: Not applicable SIGNED BY: IMAN Hernández) December 03, 2023 12:26 PM [facility] 11-29-2023 History of Present illness Narrative Heart, Vascular and Thoracic [place] DEPARTMENT OF THORACIC SURGERY OUTPATIENT VISIT DATE November 29, 2023 OUTPATIENT VISIT TYPE ESTABLISHED PT NAME: Sav Raymundo [facility] NO: [id number] THORACIC SURGEON: Ronaldo Simmons M.D. DATE OF SERVICE: 11/29/2023 PRINCIPAL DX: Pleural Effusion SURGICAL HX 11/20/2023: R VATS pleural biopsy, right mechanic assistant and doxycycline pleurodesis, right Pleurx catheter insertion, right 20Fr chest tube insertion Surgical Pathology 11/20/2023: PENDING Right pleural fluid cytology: FINAL DIAGNOSIS A - Pleural Cavity, Right, Fluid, Thoracentesis - Right pleural fluid Negative for malignant cells. Acute and chronic inflammation. The following cell blocks were associated with this case: A1 Cell Block, Alcohol Fixed ON FOR VISIT: First post-operative visit HPI: Sav Raymundo is a 73 year old male with a PmHX significant for HTN, hyperlipidemia, gout, GERD. Patient seen 07/2023 for a few months lasting cough. He had a chest CT on 08/15/23 showing moderate R pleural effusion. He had thoracentesis twice on 09/04/23 and 10/01/2023, cytology was negative both times and chemical analysis was consistent with an exudate. The right pleural effusion persists per most recent CT on 10/18/23. He also has a small to moderate pericardial effusion seen on imaging and on ECHO that was done in 09/04/23, otherwise with good cardiac function(pericardial effusion almost completely resolved on last CT). Imaging has also been consistent with small to moderate left pleural effusion that has almost completely resolved on last CT. On 11/20/2023, patient underwent R VATS pleural biopsy, right mechanic assistant and doxycycline pleurodesis, right Pleurx catheter insertion, right 20Fr chest tube insertion. Postoperative course was unremarkable and patient was discharged home on 11/23/2023. PHYSICAL EXAM: VITAL SIGNS: BP 121/68 (BP Site: Left Arm, BP Position: Sitting, BP Cuff Size: Regular Adult) Pulse 71 Temp 36.3 C (97.3 F) (Temporal) Resp 14 Ht 182.9 cm (6') Wt 105.6 kg (232 lb 12.8 oz) SpO2 98% BMI 31.57 kg/m Room air Incision location: Right Thoracoport sites Incision Assessment: Well approximated and no drainage, swelling, erythema or warmth Drain/Tubes: Pleurex Catheter-capped GENERAL: well appearing, alert, no acute distress, well-hydrated, well nourished HEENT: normocephalic, midline, anicteric sclera. LUNGS: clear to auscultation, no wheezing or rhonchi HEART: RRR without murmur ABDOMEN: Soft, non-tender, non distended. No masses EXTREMITIES: No clubbing, cyanosis. 1+ BLE pitting edema MUSCULOSKELETAL: Muscular strength intact. SKIN: turgor normal, no suspicious rashes or lesions NEURO: Gait normal. Sensation grossly intact. IMAGING/TESTS: CXR 11/29/2023: PENDING INTERVAL HISTORY: Patient presents to clinic today for first postoperative visit. He denies any recent hospitalizations since discharge. Denies fevers, chills, night sweats. Pain is well controlled on current regimen. Breathing has improved since pleurx placement, and notes breathing is more shallow prior to draining pleurx. Right pleurx catheter with drainage as follows 11/24: 945 cc (dark awilda with foam) 11/26: 450 cc (cosmetician apprentice than last time with foam) I drained 790 cc of serosanguinous drainage in clinic today. Recommend draining pleurx daily until output slows down, but states she is unable to and [facility] comes every other day. Reviewed with patient and his that fluid cytology was negative for malignant cells, but surgical pathology results were not in yet. Patient and voice frustration that they do not have an answer as to where the fluid is coming from. Requesting to follow-up next week on a day that he can be seen by Dr. Simmons to further discuss. IMPRESSION: 73 year old male with pmh significant for recurrent right pleural effusion s/p R VATS pleural biopsy, right mechanic assistant and doxycycline pleurodesis, right Pleurx catheter insertion, right 20Fr chest tube insertion on 11/20/[address] Simmons. Patient overall doing well from a clinical standpoint. CXR from today is still pending; to my eye, shows improving right pleural effusion. Patient continues to drain large amounts from pleurx cathete every other day. Fluid cytology negative for malignant cells, but final surgical pathology is still pending. PLAN: -Will call with surgical pathology results once in -Follow-up in 1 week with CXR; sooner if experiencing new/worsening clinical symptoms -Continue to drain pleurx every other day -Begin 5 day course of lasix 20 mg daily with KDUR supplementation for edema Tita Lanrdy APRN.ATTORNEY LAW CLERK documented in this encounter [facility] 11-29-2023 Note HNO ID: [id number] Author: TITA LANDRY APRN.CNP Service: ? Author Type: Nurse Practitioner Type: Progress Notes Filed: 12/30/2023 21:20 Note Text: Heart, Vascular and Thoracic [place] DEPARTMENT OF THORACIC SURGERY OUTPATIENT VISIT DATE November 29, 2023 OUTPATIENT VISIT TYPE ESTABLISHED PT NAME: Sav Raymundo CLINIC NO: [id number] THORACIC SURGEON: Ronaldo Simmons M.D. DATE OF SERVICE: 11/29/2023 PRINCIPAL DX: Pleural Effusion SURGICAL HX 11/20/2023: R VATS pleural biopsy, right mechanic assistant and doxycycline pleurodesis, right Pleurx catheter insertion, right 20Fr chest tube insertion Surgical Pathology 11/20/2023: PENDING Right pleural fluid cytology: FINAL DIAGNOSIS A - Pleural Cavity, Right, Fluid, Thoracentesis - Right pleural fluid Negative for malignant cells. Acute and chronic inflammation. The following cell blocks were associated with this case: A1 Cell Block, Alcohol Fixed ON FOR VISIT: First post-operative visit HPI: Sav Raymundo is a 73 year old male with a PmHX significant for HTN, hyperlipidemia, gout, GERD. Patient seen 07/2023 for a few months lasting cough. He had a chest CT on 08/15/23 showing moderate R pleural effusion. He had thoracentesis twice on 09/04/23 and 10/01/2023, cytology was negative both times and chemical analysis was consistent with an exudate. The right pleural effusion persists per most recent CT on 10/18/23. He also has a small to moderate pericardial effusion seen on imaging and on ECHO that was done in 09/04/23, otherwise with good cardiac function(pericardial effusion almost completely resolved on last CT). Imaging has also been consistent with small to moderate left pleural effusion that has almost completely resolved on last CT. On 11/20/2023, patient underwent R VATS pleural biopsy, right mechanic assistant and doxycycline pleurodesis, right Pleurx catheter insertion, right 20Fr chest tube insertion. Postoperative course was unremarkable and patient was discharged home on 11/23/2023. PHYSICAL EXAM: VITAL SIGNS: BP 121/68 (BP Site: Left Arm, BP Position: Sitting, BP Cuff Size: Regular Adult) Pulse 71 Temp 36.3 ?C (97.3 ?F) (Temporal) Resp 14 Ht 182.9 cm (6') Wt 105.6 kg (232 lb 12.8 oz) SpO2 98% BMI 31.57 kg/m? Room air Incision location: Right Thoracoport sites Incision Assessment: Well approximated and no drainage, swelling, erythema or warmth Drain/Tubes: Pleurex Catheter-capped GENERAL: well appearing, alert, no acute distress, well-hydrated, well nourished HEENT: normocephalic, midline, anicteric sclera. LUNGS: clear to auscultation, no wheezing or rhonchi HEART: RRR without murmur ABDOMEN: Soft, non-tender, non distended. No masses EXTREMITIES: No clubbing, cyanosis. 1+ BLE pitting edema MUSCULOSKELETAL: Muscular strength intact. SKIN: turgor normal, no suspicious rashes or lesions NEURO: Gait normal. Sensation grossly intact. IMAGING/TESTS: CXR 11/29/2023: PENDING INTERVAL HISTORY: Patient presents to clinic today for first postoperative visit. He denies any recent hospitalizations since discharge. Denies fevers, chills, night sweats. Pain is well controlled on current regimen. Breathing has improved since pleurx placement, and notes breathing is more shallow prior to draining pleurx. Right pleurx catheter with drainage as follows 11/24: 945 cc (dark awilda with foam) 11/26: 450 cc (cosmetician apprentice than last time with foam) I drained 790 cc of serosanguinous drainage in clinic today. Recommend draining pleurx daily until output slows down, but states she is unable to and [facility] comes every other day. Reviewed with patient and his that fluid cytology was negative for malignant cells, but surgical pathology results were not in yet. Patient and voice frustration that they do not have an answer as to where the fluid is coming from. Requesting to follow-up next week on a day that he can be seen by Dr. Simmons to further discuss. IMPRESSION: 73 year old male with pmh significant for recurrent right pleural effusion s/p R VATS pleural biopsy, right mechanic assistant and doxycycline pleurodesis, right Pleurx catheter insertion, right 20Fr chest tube insertion on 11/20/[address] Simmons. Patient overall doing well from a clinical standpoint. CXR from today is still pending; to my eye, shows improving right pleural effusion. Patient continues to drain large amounts from pleurx cathete every other day. Fluid cytology negative for malignant cells, but final surgical pathology is still pending. PLAN: -Will call with surgical pathology results once in -Follow-up in 1 week with CXR; sooner if experiencing new/worsening clinical symptoms -Continue to drain pleurx every other day -Begin 5 day course of lasix 20 mg daily with KDUR supplementation for edema Tita Landry, LETICIA.ATTORNEY LAW CLERK [facility] 11-23-2023 Note [facility] 11-23-2023 Note [facility] 11-23-2023 Note [facility] 11-23-2023 Note HNO ID: [id number] Author: NOTE, INTERFACE, ? Service: ? Author Type: ? Type: Progress Notes Filed: 11/23/2023 03:22 Note Text: Epic Scheduled Downtime: 11/23/2023 1:00:00 AM to 11/23/2023 3:02:00 AM [facility] 11-22-2023 Note [facility] 11-21-2023 Note [facility] 11-20-2023 Note [facility] 11-12-2023 Note [facility] 11-12-2023 History of Present illness Narrative I have read and reviewed the documentation and agree. I wish to add the following findings which have been dictated and will be communicated back to the requesting physician. Ronaldo Simmons MD, PhD CHART COPY DO NOT DISCARD . Patient here today for [facility]CI visit. . Surgery Right VATS Bx/Pleurodesis scheduled for 11/20/2023. . Meds allergies reviewed. Latex Allergy: No Anticoag:Baby Aspirin-ok to take , Mobic (meloxicam)-last dose none since last 01/2023 Medport: No Preoperative instructions; NPO after midnight night prior to surgery and Listerine after brushing teeth and Hibiclens Shower. Patient verbalized understanding of instructions. . Last clinic note 10/24/2023 per Ronaldo Simmons M.D. Recurrent Right Pleural Effusion IMPRESSION: Never smoker with recurrent effusion. Of note, the patient had a pericardial effusion noted in [address] that has abated. My sense is that this is likely some form of systemic inflammatory process. There is no evidence of carcinomatosis radiographically, though certainly mesothelioma would be on the differential. Indications for surgical intervention would be the recurrent nature of the effusion with respiratory compromise as well as a diagnostic tool in addition to the therapeutic aspect. I will reach out to Dr. Tuttle and solicit his thoughts. If the patient was to proceed onto a thoracoscopy, some form of provocative heart and lung testing would be reasonable. It was a pleasure seeing the patient and I look forward to assisting in his care going forward. . Today's visit 11/12/23: Presents with SOB with any exertion and needing to sleep in chair sitting up. Pt. sent to [facility]. for Thoracentesis 11/12/[address] Rosario IMPRESSION: Completed Right thoracentesis with approximately 1700 mL of fluid withdrawal. Estimated blood loss: Minimal. CXR: 11/12/2023 RESULT: Lines, tubes, and devices: None. Lungs and pleura: Increased moderate right pleural effusion with associated atelectasis/consolidation. No pneumothorax.. Cardiomediastinal silhouette: Stable cardiomediastinal silhouette. Bones and soft tissues: Degenerative changes are present within the thoracic spine. . Not needed per Dr. Simmons Cardiac Studies: Nuclear Medicine Stress Test: 11/12/2023 CONCLUSIONS: 1. SPECT Perfusion Study: Normal. 2. There is no scintigraphic evidence for inducible ischemia. 3. No evidence of scarred myocardium. 4. Left ventricle is normal in size. The left ventricle systolic function is normal. 5. Right ventricle is normal in size. The right ventricle systolic function is normal. 6. This is a low risk scan. Gated Stress FBP Gated Rest FBP LVEF % 67 54 EK11/12/2023 Prelim. Diagnosis: SINUS RHYTHM WITH FREQUENT PREMATURE VENTRICULAR COMPLEXES ANTEROLATERAL T WAVE ABNORMALITY ABNORMAL ECG Risk, benefits, and alternatives discussed per Ronaldo Simmons M.D. H&P 10/24/[address] Faisal Alcantara 10/18/2023 CCT . Huy Robles RN documented in this encounter [facility] 11-12-2023 Note [facility] 11-12-2023 Nurse Note PATIENT EDUCATION The following was evaluated: Motivation To Learn: Interested Family/Significant Other Support: High - Very involved in pt care Cognitive Ability: Alert and oriented Patient Learns Best By: Multiple Methods The Following Influencing Factors Were Barriers To This Education Session: No barriers Cloth Mender Present: Not Applicable The Following Physical Limitations Were Barriers To This Education Session: None Instruction Provided To: Patient & Family Discipline: Nursing Learning Topic: Pre-op Instructions given Patient Evaluation: Verbalizes understanding Follow Up Plan: Patient/Family will call us with questions Supplemental Material Given: TCI Patient Instructions: Thoracic Surgery Teach completed, topic: Bactroban instructions, Listerine and Hibiclens day before and morning of surgery Instructed By Huy Robles RN. In Department of THORACIC CLINIC. [facility] 11-12-2023 Nurse Note PATIENT EDUCATION The following was evaluated: Motivation To Learn: Interested Family/Significant Other Support: High - Very involved in pt care Cognitive Ability: Alert and oriented Patient Learns Best By: Multiple Methods The Following Influencing Factors Were Barriers To This Education Session: No barriers Cloth Mender Present: Not Applicable The Following Physical Limitations Were Barriers To This Education Session: None Instruction Provided To: Patient & Family Discipline: Nursing Learning Topic: Pre-op Instructions given Patient Evaluation: Verbalizes understanding Follow Up Plan: Patient/Family will call us with questions Supplemental Material Given: TCI Patient Instructions: Thoracic Surgery Teach completed, topic: Bactroban instructions, Listerine and Hibiclens day before and morning of surgery Instructed By Huy Robles RN. In Department of THORACIC CLINIC. documented in this encounter [facility] 11-12-2023 Note [facility] 11-12-2023 History of Present illness Narrative RADIOLOGY SERVICE PROGRESS NOTE SERVICE DATE: 11/12/2023 SERVICE TIME: 10:20 AM PATIENT IDENTITY VERIFICATION COMPLETED USING TWO (2) STANDARD IDENTIFIERS: Name and Date of confirmed by patient verbally and Name and Date of confirmed by identification band FALL SCREENING: Has the patient had 2 falls in the last year or 1 fall with injury or currently using an Ambulatory Assistive Device (Walker, Cane, Wheelchair, Crutches, etc.)? No PATIENT GENDER DATA: .male : No ALLERGIES: Reviewed and unchanged MEDICATIONS REVIEWED: Yes PATIENT RELEVANT IMPLANT DATA REVIEWED: Not Applicable PATIENT PRESENTS WITH AN IMPLANTABLE OR ATTACHED DIRECTOR REACTOR PROJECTS: No CREATININE: Creatinine Date Value Ref Range Status 11/12/2023 0.99 0.73 - 1.22 mg/dL Final Estimated Glomerular Filtration Rate Date Value Ref Range Status 11/12/2023 81 >=60 mL/min/1.73m Final Comment: Estimated Glomerular Filtration Rate (eGFR) is calculated using the 2020 CKD-EPI creatinine equation. This equation utilizes serum creatinine, sex, and age as parameters. The creatinine assay has traceable calibration to isotope dilution-mass spectrometry. Refer to KDIGO guidelines for clinical interpretation. In patients with unstable renal function, e.g. those with acute kidney injury, the eGFR may not accurately reflect actual GFR. P.O.C.T. RESULTS: N/A November 12, [address] PERFORMED: No IV SITE: Ambulatory: A peripheral IV was started in the Left hand with a Angio cath: 24 gauge. POST EXAM PIV STATUS: Discontinued PROCEDURE TYPE: FL Stress: 11.8 mCi [id number] was administered IV for Rest Imaging at 10:18AM by GRECIA CONTEMT. 41.8 mCi [id number] was administered IV for Stress Imaging at 1118 by Mariam Patterson ADMINISTRATION TIME: PATIENT DISCHARGED TO: Ambulatory patient, left [place] department area. A Diagnostic radioactive procedure has taken place, with no further precautions necessary other than routine body substance precautions. More information regarding radiation safety can be found using this link: [email or web address] [email or web address]%20Nuclear %20Medicine%20Procedures.[email or web address] SIGNATURE: Grecia Avitia RT(R) PATIENT NAME: Sav Raymundo DATE: November 12, 2023 TIME: 10:20 AM PAGER/CONTACT #: RADIOLOGY SERVICE PROGRESS NOTE SERVICE DATE: 11/12/2023 SERVICE TIME: 11:14 AM PATIENT IDENTITY VERIFICATION COMPLETED USING TWO (2) STANDARD IDENTIFIERS: Name and Date of confirmed by patient verbally and Name and Date of confirmed by identification band PATIENT GENDER DATA: male ALLERGIES: Reviewed and unchanged MEDICATIONS REVIEWED BY: Designer Architect PROCEDURE TYPE: NM STRESS: 0.4 mg of Lexiscan was administered IV at 1018 by Vibha Dempsey RN . Reversal agent used: None. Expiration date: 06/2025 Lot#: [id number] IV SITE: Ambulatory: A Saline lock was inserted per protocol POST EXAM PIV STATUS: Discontinued PATIENT DISCHARGED TO: Ambulatory patient, left [place] department area. A Diagnostic radioactive procedure has taken place, with no further precautions necessary other than routine body substance precautions. More information regarding radiation safety can be found using this link: [email or web address]%20Nuclear %20Medicine%20Procedures.[email or web address] SIGNATURE: Vibha Dempsey RN PATIENT NAME: Sav Raymundo DATE: November 12, 2023 TIME: 11:14 AM PAGER/CONTACT #: documented in this encounter [facility] 11-12-2023 Note [facility] 11-12-2023 Note [facility] 11-12-2023 Note [facility] 11-07-2023 Telephone encounter Note patient notes that he has increasing cough and is working with local pulm/pcp to ge tback on inhaler and prednisone burst to assist (normaly 3 days) reviwed that this is ok but should be off steroids 5-7 days at minimum prior to lung surgery 11/19 pt voiced understanding Patricia Bermudez RN [facility] 11-07-2023 Miscellaneous Notes patient notes that he has increasing cough and is working with local pulm/pcp to ge tback on inhaler and prednisone burst to assist (normaly 3 days) reviwed that this is ok but should be off steroids 5-7 days at minimum prior to lung surgery 6/5 pt voiced understanding Patricia Bermudez RN documented in this encounter [facility] 10-28-2023 Note [facility] 10-28-2023 History of Present illness Narrative Spoke with patient and answered pre-operative questions including recovery time frames and surgical schedule timing. Is patient on blood thinners: asa 81mg Has patient had blood products in the last 3 months: no Is the patient on any multivitamins or supplements: no right vats biopsy/pleurodesis cs =2.5 los 2-3 OR 11/20/2023 TCI with NMST PFT, 6MWT No other questions at this time. Patricia Bermudez MSN, RN Nurse District Fire Chief Thoracic Surgery [facility] October 25, 2023 11:43 AM left message on patient mobile phone to discuss surgical planning, await call back. Tentative plans for: OR 11/20/2023 pending patient acceptance Patricia Bermudez RN documented in this encounter [facility] 10-25-2023 Note [facility] 10-25-2023 Note [facility] 10-25-2023 History of Present illness Narrative [facility] STAFF PHYSICIAN NOTE OF PERSONAL INVOLVEMENT IN CARE I have reviewed the documentation obtained and documented by the Resident and I have personally performed a face to face assessment of the patient and have personally participated in the mittal components of the visit which includes medical decision making.. I have discussed the case and management of the patient's care. I wish to add the following findings which have been dictated and will be communicated back to the requesting physician. STAFF PHYSICIAN: Ronaldo Simmons MD, PhD DATE OF SERVICE: October 24, 2023 Images from the original note were not included. [facility] THORACIC SURGERY OUTPATIENT CONSULT NOTE Sav Raymundo [id number] Requesting Provider: Dr. Calin Gotti Thoracic Physician: Ronaldo Simmons MD Chief Complaint: R pleural effusion Impression: Sav Raymundo is a 73 year old White male with PMH of HTN, hyperlipidemia, gout, GERD referred by Dr. Calin Gotti for an opinion regarding management of Pleural Effusion. First time seen on chest CT on 08/15/23 s/p thoracentesis twice on 09/03 and 09/30, cytology negative, analysis consistent with exudate. Plan: - Will consider VATS SIGNATURE: Mark Malone MD DATE of SERVICE: 10/24/2023 TIME of SERVICE: 11:42 AM HPI: Sav Raymundo is a 73 year old White male with PMH of HTN, hyperlipidemia, gout, GERD referred by Dr. Calin Gotti for an opinion regarding management of Pleural Effusion. He was evaluated by her in July this year for a few months lasting cough. He had a chest CT on 08/15/23 showing moderate R pleural effusion. He had thoracentesis twice on 09/03 and 09/30, cytology was negative both times and chemical analysis was consistent with an exudate. The R pleural effusion persists per most recent CT on 10/18/2023. He also has a small to moderate pericardial effusion seen on imaging and on ECHO that was done in 09/03 this year, otherwise with good cardiac function(pericardial effusion almost completely resolved on last CT). Imaging has also been consistent with small to moderate L pleural effusion that has almost completely resolved on last CT. Patient is a never smoker. No family history of cancer. (document at least 4 of these elements) Location: right Quality: chronic Severity: moderate Timing: constant ECOG Score: 0 Living arrangement: Lives with family/friend Functional status: Independent Unintentional weight loss over last 3 months: No PAST MEDICAL HISTORY Diagnosis Date GERD (gastroesophageal reflux disease) History of basal cell cancer left shoulder Mixed hyperlipidemia Osteoarthritis of multiple joints Pleural effusion, right s/p Thoracentesis 10/01/23 = 520 cc, 625 cc PAST SURGICAL HISTORY Procedure Laterality Date ANESTH OPEN/SURG ARTHRS TOTAL KNEE ARTHROPLASTY Left 08/23/2014 ARTHROSCOPY KNEE DIAGNOSTIC W/WO SYNOVIAL BX SPX Left 2010 ORTHOPEDIC SURGERY HX Right Hand PAST SURGICAL HISTORY OF Left 11/2014 Shoulder -BASAL CELL CARCINOMA EXCISION TOTAL KNEE REPLACEMENT Right 06/25/2016 FAMILY HISTORY Problem Relation Age of Onset Heart Father Social History Tobacco Use Smoking status: Never Smokeless tobacco: Never ALLERGIES Allergen Reactions Tramadol Mental Status Change Asbestos Exposure No PHYSICAL EXAM There were no vitals taken for this visit. Neck: No masses Resp: Clear and Decreased breath sounds on the right at the base Cardiovascular: Regular rate & rhythm GI: Soft Neurological/Psychiatric: Oriented to time, place & person Additional relevant findings: none DATA: CT chest 10/18/2023: CT chest 08/15/2023: Radiology: CT Chest: I have personally reviewed the following images/data: Chest X-ray, CT scan, and Fluid analysis/micro Outside Paper Medical Records Review personally performed by: Mark Malone MD documented in this encounter [facility] 10-24-2023 Note [facility] 10-24-2023 Note [facility] 10-21-2023 Telephone encounter Note Received ED visit notes 10/18/23 from [facility] Records scanned in [facility] CTA Chest and Chest XR imaging requested from [facility] Jahaira Wood, linux administrator [facility] 10-21-2023 Miscellaneous Notes Received ED visit notes 10/18/23 from [facility] Records scanned in [facility] CTA Chest and Chest XR imaging requested from [facility] Jahaira Wood, linux administrator Images from the original note were not included. Thoracic Surgery Consultation - review of records for appointment scheduling Received medical records from the office of Calin Gotti [address] [place] [address] Patient is being referred to Ronaldo Simmons MD, PhD by Calin Gotti for Pleural Effusion Outside hospital records scanned Pathology: Procedures: right thoracentesis 10/01/23 520ml thoracentesis 09/04/[address] right [address] chest done at [place] [facility] for Shortness of breath - pt to bring imaging disc CT ( abd, pelvis): 09/12/23 Cardiopulmonary Testing PFT's/Six: requested Cardiac: echo 09/04/23 Office Notes/Consults 10/09/2023 [facility] 09/25/[address] gotti History of: No family history on file. No past medical history on file. No past surgical history on file. Social History Tobacco Use Smoking status: Never Smokeless tobacco: Never Request consult with dr simmons 10/24/2023 @ 12, pt aware and agreeable Patricia Bermudez RN LOCAL PATIENT Received Fax from Dr. Calin Gotti Sav Raymundo is being referred to Ronaldo Simmons M.D., Ph. D. by Calin Gotti [address] [place] [address] Patient diagnosis/Reason for consult: Pleural Effusion Recurrent Referral triage process explained: Yes Patient will receive a call from Thoracic NPM after triage review with surgeon to discuss any additional testing and/or consults that will be scheduled. Pt will then receive a call from our scheduling office for scheduling. Please call pt at [phone]. Patient was informed consultation could be at [facility] or [facility]: No Patient Registration: Registration complete/updated: yes Insurance card(s) scanned in [facility] with in the past year: Yes: Date: 10/16/23 Pt's MyChart is inactive. Ok to communicate to pt via [email or web address] not asked Medical Records: Records in [facility] (internal CC records): No Imaging in [facility] (internal CC records): No Care Everywhere - queried yes, downloaded Yes Linked Outside Organizations (list): [facility] Records Requested: no Date: N/A Outside Hospital(s) requested records from: Dr. Gotti Received: yes Uploaded: Yes. Waiting on additional records: No. Missing (list): N/A OS Pathology Slides Requested: no Date: N/A Outside Hospital(s) slides requested from: n/a [facility] Radiology Imaging Requested: yes Date: October 16, 2023 Outside Hospital(s) requested imaging from: [facility]. Imaging will be received via Electronic Transfer Received: Yes Imaging uploaded: Yes Waiting on additional: No Missing (list): n/a Additional providers added to Care Teams: Yes Additional Notes/Comments: Pt's spouse states pt is waiting to be scheduled for another CT Chest locally. Enct routed to: Margaret Vasquez NPM for Triage Jahaira Wood, linux administrator documented in this encounter [facility] 10-21-2023 Telephone encounter Note Images from the original note were not included. Thoracic Surgery Consultation - review of records for appointment scheduling Received medical records from the office of Calin Gotti [address] [place], [place] [address] Patient is being referred to Ronaldo Simmons MD, PhD by Calin Gotti for Pleural Effusion Outside hospital records scanned Pathology: Procedures: right thoracentesis 10/01/23 520ml thoracentesis 09/04/23 right [address] chest done at [facility] for Shortness of breath - pt to bring imaging disc CT ( abd, pelvis): 09/12/23 Cardiopulmonary Testing PFT's/Six: requested Cardiac: echo 09/04/23 Office Notes/Consults 10/09/2023 [facility] pul[facility] 09/25/[address] gotti History of: No family history on file. No past medical history on file. No past surgical history on file. Social History Tobacco Use Smoking status: Never Smokeless tobacco: Never Request consult with dr simmons 10/24/2023 @ 12, pt aware and agreeable Patricia Bermudez, RN [facility] 10-16-2023 Telephone encounter Note LOCAL PATIENT Received Fax from Dr. Calin Adams Pepe Raymundo is being referred to Ronaldo Simmons M.D., Ph. D. by Calin Gotti [address] [address] Patient diagnosis/Reason for consult: Pleural Effusion Recurrent Referral triage process explained: Yes Patient will receive a call from Thoracic NPM after triage review with surgeon to discuss any additional testing and/or consults that will be scheduled. Pt will then receive a call from our scheduling office for scheduling. Please call pt at [phone]. Patient was informed consultation could be at [facility] or [facility]: No Patient Registration: Registration complete/updated: yes Insurance card(s) scanned in [facility] with in the past year: Yes: Date: 10/16/23 Pt's [employer] is inactive. Ok to communicate to pt via [employer] not asked Medical Records: Records in [facility] (internal CC records): No Imaging in [facility] (internal CC records): No Care Everywhere - queried yes, downloaded Yes Linked Outside Organizations (list): [facility] Records Requested: no Date: N/A Outside Hospital(s) requested records from: Dr. Gotti Received: yes Uploaded: Yes. Waiting on additional records: No. Missing (list): N/A OSH Pathology Slides Requested: no Date: N/A Outside Hospital(s) slides requested from: n/a OS Radiology Imaging Requested: yes Date: October 16, 2023 Outside Hospital(s) requested imaging from: [facility]. Imaging will be received via Electronic Transfer Received: Yes Imaging uploaded: Yes Waiting on additional: No Missing (list): n/a Additional providers added to Care Teams: Yes Additional Notes/Comments: Pt's spouse states pt is waiting to be scheduled for another CT Chest locally. Enct routed to: Pedro, Margaret NPM for Triage Jahaira Wood, linux administrator [facility] 10-15-2023 Telephone encounter Note Summary: CARDIO THORACIC SURG Patient: Sav Raymundo Date of : 1950 Patient phone number: [phone] Referring Provider for the encounter: Calin Gotti Requesting Provider: Dr Ronaldo Simmons Reason for requesting visit (RFV/signs and symptoms/diagnosis): pleural effusion recurment . Person calling: Via RP FAX Return call to: self Medical Records/Insurance Card scanned into Epic: Comments: [facility] 10-15-2023 Miscellaneous Notes Summary: CARDIO THORACIC SURG Patient: Sav Raymundo Date of : 1950 Patient phone number: [phone] Referring Provider for the encounter: Calin Gotti Requesting Provider: Dr Ronaldo Simmons Reason for requesting visit (RFV/signs and symptoms/diagnosis): pleural effusion recurment . Person calling: Via RP FAX Return call to: self Medical Records/Insurance Card scanned into Epic: Comments: documented in this encounter [facility] 07-23-2023 Evaluation note Encounter Date Diagnosis Assessment Notes Jul, Subacute cough (ICD-10 - R05.2) Continue treatment of any PND and GERD. Continue Mucinex DM. Trial of Prednisone and Albuterol. Jul, Primary hypertension (ICD-10 - I10) This patient is instructed to consume a healthy, low-fat, low-salt diet. They are also encouraged to continue exercise to achieve/maint ain a normal BMI. [employer] Other 01-24-2024 Evaluation note* Encounter Date Diagnosis Assessment Notes Treatment Notes Treatment Clinical Notes Jun, Subacute cough (ICD-10 - R05.2) [employer] Other 01-21-2024 Evaluation note* Encounter Date Diagnosis Assessment Notes Treatment Notes Treatment Clinical Notes Jun, Subacute cough (ICD-10 - R05.2) [employer] Other 01-09-2024 Evaluation note* Encounter Date Diagnosis Assessment Notes Treatment Notes Treatment Clinical Notes Jun, Primary hypertension (ICD-10 - I10) [employer] Other 11-21-2023 Evaluation note* Encounter Date Diagnosis Assessment Notes Treatment Notes Treatment Clinical Notes Apr, Acute bronchitis due to other specified organisms (ICD-10 - J20.8) [employer] Other 11-08-2023 Evaluation note* Encounter Date Diagnosis Assessment Notes Treatment Notes Treatment Clinical Notes Apr, Primary hypertension (ICD-10 - I10) [employer] Other 11-06-2023 Evaluation note* Encounter Date Diagnosis [...] w/ goal < 135/85 _update office in days Apr, Other obesity due to excess [...] specific antigen) (ICD-10 - Z12.5) Yealry PSA [employer] Other 11-01-2023 Evaluation note* Encounter Date Diagnosis Assessment Notes Treatment Notes Treatment Clinical Notes Apr, Screening PSA (prostate specific antigen) (ICD-10 - Z12.5) Apr, Hyperlipidemia type II (ICD-10 - E78.01) Apr, Gastro-esophageal reflux disease with esophagitis, without bleeding (ICD-10 - K21.00) Apr, Fatigue, unspecified type (ICD-10 - R53.83) Apr, High risk medication use (ICD-10 - Z79.899) [employer] Other 08-28-2023 History of Present illness Narrative* Margie Edouard, - 02/11/2023 2:00 PM EDT Telehealth Visit Via Phone Call Patient: Sav Raymundo Date of : 1950 (72 y.o. male) Patient Patient Location: [address] [place] [address] [place] [address] Provider Location: [facility] I discussed risks, benefits and alternatives [...] there are inherent diagnostic limitations compared to [id number]-siwg evaluations. We elected toproceed with the telephone visit telemedicine consultation. HPI: Sav is on the phone to discuss the [...] discussing current HPI and treatment plan. Margie Edouard DO Orthopedic Surgeon, Fellowship Trained in Foot and Ankle Surgery Note: To expedite correspondence this note was generated by [employer] voice recognition software. Somegrammatical or spelling errors may occur using the system. documented in this [id number] History of Present illness Narrative* Nena Bynum DO - 01/16/2023 10:35 AM EDT [facility] Orthopedic Surgeons [address] [place] [id number] Patient Name: Sav Raymundo Patient Age: 72 y.o. Patient : 1950 Date: 01/16/23 Progress Note HPI: Sav Raymundo is a 72 y.o. male who is [...] KNEE ARTHROPLASTY; Surgeon: Karthik Calloway MD; Location: [facility] OR; Service: ARTHROPLASTY KNEE TOTAL Right 06/25/2016 Procedure: RIGHT TOTAL KNEE ARTHROPLASTY ; Surgeon: Karthik Calloway MD; Location: [facility] OR; Service: BASAL CELL CARCINOMA EXCISION [...] mouth every morning . vit A-vit C-vit D-mmps-tgxzvr 7,160-113-100 elvy-oh-aouy Tab Take 1 tablet by mouth every [...] Imaging: X-rays of the left knee from [facility] taken today are reviewed. My personal interpretation [...] of fracture, significant osteolysis or loosening. Assessment: Sav Raymundo is a 72 y.o. male status post [...] expedite correspondence this note was generated by [employer] voice recognition software. Somegrammatical or spelling errors may occur using the system. documented in this [id number] Evaluation note* Encounter Date Diagnosis Assessment Notes Treatment Notes Treatment Clinical Notes Dec, Laceration of scalp, initial encounter (ICD-10 - S01.01XA) Cleanse scalp w/ soap and water [employer] Other 06-05-2023 History of Present illness Narrative* Margie Edouard, - 11/19/2022 1:56 PM EDT 11/19/22 Sav Raymundo 1950 HISTORY: The patient returns today for [...] the left great toe does not apparently structurer the ground. IMAGING: Please see dictated report. ASSESSMENT: Left hallux rigidus Left metatarsalgia PLAN: I performed a left first MTP joint injection at today's visit. Please see separate procedure note. I recommended that we proceed with custom orthotics with a Eaton's extension, built-in metatarsal pad. Order was placed to [facility] orthopedics. We discussed left first MTP joint arthrodesis at today'svisit. We discussed the fact that he would have to be nonweightbearing following the procedure. Thepatient would like to hold off on any surgery at today's visit. We will see him back in 6 weeks. Radiographs next visit: None Margie Edouard DO Orthopedic Foot and Ankle Surgeon To expedite correspondence, this note was generated by [employer] voice recognition software. Some grammatical or spelling errors may occur using this system. documented in this [id number] History of Present illness Narrative* Grecia Hill PA-C - 10/08/2022 2:36 PM EDT 10/08/22 Sav Raymundo 1950 HISTORY: Sav returns today for re-evaluation of his left [...] ASSESSMENT: Left hallux rigidus Left metatarsalgia PLAN: Sav has been wearing the metatarsal pad, Eaton's [...] next visit: Views: None WB Status: N/A Grecia Hill PA-C Orthopedic Foot and Ankle Surgery To expedite correspondence, this note was generated by [employer] voice recognition software. Some grammatical or spelling errors may occur using this system. documented in this [id number] History of Present illness Narrative* Margie Edouard, DO - 08/28/2022 1:46 PM EDT 08/28/22 Sav Raymundo 1950 HISTORY: Sav is a 72 y.o. year old male [...] the left great toe does not apparently structurer the ground. IMAGING: Please see dictated report. [...] the future. Radiographs next visit: None Margie Edouard DO Orthopedic Foot and Ankle Surgeon To expedite correspondence, this note was generated by [employer] voice recognition software. Some grammatical or spelling errors may occur using this system. [facility] Diagnosis Status post total knee replacement, bilateral- Primary documented in this encounter [facility] note* Diagnosis Hallux rigidus of left foot- Primary Eaton's metatarsalgia, left documented in this encounter [facility] note* Diagnosis Hallux rigidus of left foot- Primary Metatarsalgia, left foot documented in this encounter [facility] note* Diagnosis Hallux rigidus of left foot- Primary documented in this encounter [facility] note* Diagnosis Status post total knee replacement, bilateral- Primary documented in this encounter [facility] note* Diagnosis Hallux rigidus of left foot- Primary documented in this encounter [facility] noteNo [employer] Other Evaluation note* Diagnosis Status post total knee replacement, bilateral- Primary documented in this encounter [facility] note* Diagnosis Onset Date Resolution Status Nausea & vomiting acute Primary hypertension acute Subacute cough acute Dyspnea on effort noneactive Murmur noneactive [facility] Work Phone: Evaluation note* Diagnosis Pleural effusion- Primary Unspecified pleural effusion documented in this encounter [facility] note* Diagnosis Obesity, Class I, BMI 30-34.9- Primary Obesity, unspecified Pleural effusion Unspecified pleural effusion documented in this encounter [facility] note* Diagnosis Pleural effusion- Primary Unspecified pleural effusion Encounter for other preprocedural examination Pleural effusion Unspecified pleural effusion Encounter for other preprocedural examination documented in this encounter [facility] note* Diagnosis Pleural effusion- Primary Unspecified pleural effusion Pleural effusion Unspecified pleural effusion Encounter for other preprocedural examination documented in this encounter [facility] note* Diagnosis Pleural effusion Unspecified pleural effusion Encounter for other preprocedural examination Pleural effusion Unspecified pleural effusion Encounter for other preprocedural examination documented in this encounter [facility] note* Diagnosis Surgery follow-up- Primary Follow-up examination, following unspecified surgery documented in this encounter [facility] [facility] Follow-up exam- Primary Unspecified follow-up examination documented in this encounter [facility] note* Diagnosis Surgery follow-up Follow-up examination, following unspecified surgery documented in this encounter [facility] note* Diagnosis Follow-up exam Unspecified follow-up examination documented in this encounter [facility] note* Diagnosis Pleural effusion Unspecified pleural effusion documented in this encounter [facility] note* Diagnosis Pleural effusion Unspecified pleural effusion documented in this encounter [facility] note* Diagnosis Follow-up examination after lung surgery- Primary Follow-up examination, following other surgery Pleural effusion Unspecified pleural effusion documented in this encounter [facility] note* Diagnosis Follow-up examination after lung surgery- Primary Follow-up examination, following other surgery Pleural effusion Unspecified pleural effusion Pleural effusion Unspecified pleural effusion documented in this encounter [facility] note* Diagnosis Pleural effusion- Primary Unspecified pleural effusion documented in this encounter [facility] note* Diagnosis Chronic cough- Primary Cough Pleural effusion Unspecified pleural effusion documented in this encounter [facility] note* Diagnosis Recurrent pleural effusion- Primary History of pericarditis Personal history of other diseases of circulatory system Chronic cough Cough documented in this encounter [facility] note* Diagnosis Recurrent 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 Unspecified pleural effusion documented in this encounter [facility] note* Diagnosis Recurrent 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- Primary Unspecified pleural effusion Chronic cough Cough Elevated C-reactive protein (CRP) Elevated sedimentation rate documented in this encounter [facility] note* Diagnosis Pleural effusion- Primary Unspecified pleural effusion Pleural effusion Unspecified pleural effusion documented in this encounter [facility] note* Diagnosis Follow-up examination after lung surgery- Primary Follow-up examination, following other surgery Pleural effusion Unspecified pleural effusion Bilateral lower extremity edema Edema Anasarca Edema Nausea vomiting and diarrhea Diarrhea documented in this encounter [facility] note* Diagnosis Pleural effusion- Primary Unspecified pleural effusion Elevated sed rate Elevated sedimentation rate Elevated C-reactive protein (CRP) documented in this encounter [facility] note* Diagnosis Recurrent 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- Primary Unspecified pleural effusion Primary hypertension Unspecified essential hypertension Pleural effusion Unspecified pleural effusion Chronic cough Cough Anemia, unspecified type Hypomagnesemia Disorders of magnesium metabolism [facility] Diagnosis Recurrent 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- Primary Unspecified pleural effusion History of pericarditis Personal history of other diseases of circulatory system documented in this encounter [facility] note* Diagnosis Pleural effusion Unspecified pleural effusion documented in this encounter [facility] note* Diagnosis Chronic cough Cough Pleural effusion Unspecified pleural effusion documented in this encounter [facility] note* Diagnosis Pleural effusion- Primary Unspecified pleural effusion documented in this encounter [facility] note* Diagnosis Chronic cough- Primary Cough Pleural effusion Unspecified pleural effusion Interstitial pulmonary disease (HCC) Postinflammatory pulmonary fibrosis documented in this encounter [facility] note* Diagnosis Pleural effusion- Primary Unspecified pleural effusion Interstitial pulmonary disease (HCC) Postinflammatory pulmonary fibrosis documented in this encounter [facility] note* Diagnosis Chronic cough- Primary Cough Pleural effusion Unspecified pleural effusion Pleuritis Pleurisy without mention of effusion or current tuberculosis Interstitial pulmonary disease (HCC) Postinflammatory pulmonary fibrosis Pericardial effusion (noninflammatory) Pericarditis, unspecified chronicity, unspecified type Pleural effusion- Primary Unspecified pleural effusion Interstitial pulmonary disease (HCC) Postinflammatory pulmonary fibrosis Chronic cough- Primary Cough Pleural effusion Unspecified pleural effusion Interstitial pulmonary disease (HCC) Postinflammatory pulmonary fibrosis [facility] Diagnosis Chronic bronchitis, unspecified chronic bronchitis type (HCC) documented in this encounter [facility]* Diagnosis Interstitial pulmonary disease (HCC) Postinflammatory pulmonary fibrosis documented in this encounter [facility] note* Diagnosis Pericarditis, unspecified chronicity, unspecified type [facility] Diagnosis Pleural effusion- Primary Unspecified pleural effusion Elevated sed rate Elevated sedimentation rate Elevated C-reactive protein (CRP) Diarrhea, unspecified type documented in this encounter [facility]* Diagnosis Diarrhea, unspecified type Abdominal pain, unspecified abdominal location documented in this encounter [facility] note* Diagnosis Abdominal pain, unspecified abdominal location- Primary Diarrhea, unspecified type Diarrhea, unspecified type Abdominal pain, unspecified abdominal location [facility]* Diagnosis Nausea and vomiting, unspecified vomiting type documented in this encounter [facility]* Diagnosis Recurrent 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- Primary Unspecified pleural effusion Anasarca Edema Chronic cough Cough Primary hypertension Unspecified essential hypertension [facility] Diagnosis Pleural effusion Unspecified pleural effusion [facility] Diagnosis Pleural effusion- Primary Unspecified pleural effusion Chronic cough Cough Lung nodule Solitary pulmonary nodule Lymphocytic colitis Other and unspecified noninfectious gastroenteritis and colitis Pleural effusion Unspecified pleural effusion [facility]* Diagnosis Pleural effusion- Primary Unspecified pleural effusion Elevated sed rate Elevated sedimentation rate Elevated C-reactive protein (CRP) documented [facility]* Diagnosis Lymphocytic colitis- Primary Other and unspecified noninfectious gastroenteritis and colitis [facility] Diagnosis Recurrent 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- Primary Unspecified pleural effusion Primary hypertension Unspecified essential hypertension Lymphocytic colitis Other and unspecified noninfectious gastroenteritis and colitis Elevated C-reactive protein (CRP) Exocrine pancreatic insufficiency Other specified disease of pancreas Hypokalemia Hypopotassemia Anasarca Edema [facility] Diagnosis Pleural effusion- Primary Unspecified pleural effusion [facility] Diagnosis Pleural effusion- Primary Unspecified pleural effusion Pleuritis Pleurisy without mention of effusion or current tuberculosis Lymphocytic colitis Other and unspecified noninfectious gastroenteritis and colitis Pericardial effusion (noninflammatory) Interstitial pulmonary disease (HCC) Postinflammatory pulmonary fibrosis [facility]* Diagnosis Pleural effusion [J90]- Primary Unspecified pleural effusion [facility]* Diagnosis Pleural effusion Unspecified pleural effusion [facility] Diagnosis Pleural effusion- Primary Unspecified pleural effusion Muscle cramps Cramp of limb Anasarca Edema Hypomagnesemia Disorders of magnesium metabolism Lymphocytic colitis Other and unspecified noninfectious gastroenteritis and colitis [facility] Diagnosis Fatigue, unspecified type- Primary documented [facility] this [facility] Diagnosis Pleural effusion- Primary Unspecified pleural effusion [facility] Diagnosis Pleural effusion- Primary Unspecified pleural effusion Pleuritis Pleurisy without mention of effusion or current tuberculosis Pericardial effusion (noninflammatory) Chronic cough Cough [facility] Diagnosis Pleural effusion- Primary Unspecified pleural effusion documented in this encounter [facility]* Diagnosis Pleural effusion Unspecified pleural effusion documented in this encounter [facility] note* Diagnosis Early dry stage nonexudative age-related macular degeneration of both eyes- Primary Dry eyes Unspecified tear film insufficiency Blepharitis of upper and lower eyelids of both eyes, unspecified type Bilateral posterior capsular opacification Unspecified after-cataract Chalazion of left upper eyelid documented in this encounter [facility] note* Diagnosis Pleural effusion- Primary Unspecified pleural effusion documented in this encounter [facility]* Diagnosis Recurrent 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- Primary Unspecified pleural effusion documented in this encounter [facility] note* Diagnosis Lymphocytic colitis- Primary Other and unspecified noninfectious gastroenteritis and colitis Esophageal dysphagia Dysphagia, pharyngoesophageal phase documented in this encounter [facility]* Diagnosis Seborrheic keratosis- Primary Actinic keratosis Stasis dermatitis of both legs Lentigines documented in this encounter [facility] note* Diagnosis Recurrent 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- Primary Unspecified pleural effusion documented in this encounter [facility] general Narrative - Reported* Type Description Date Medical History 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 Medical History Benign prostatic hyp erplasia with lower urinary tract symptoms Medical History Hyperlipidemia type II Medical History Gastro-esophageal re flux disease with esophagitis, without bleeding Surgical History both knee replaced Surgical History hand surgery Hospitalization History SEE ABOVE [employer] Other Reason for referral (narrative)* Outpatient Procedure (Routine) - Authorized Specialty Diagnoses / Procedures Referred By Kelly stein Referred To Contact [facility] Diagnoses Pleural effusion Encounter for other preprocedural examination Procedures SIX MINUTE WALK CARDIOPULMONARY EXERCISE STRESS Ronaldo Simmons MD, PhD [address] [place] [address] [facility] [place] [address] Referral ID Status Reason Start Date Expiration Date Visits Requested Visits Authorized [id number] Authorized Auto-Generat ed Referral 10/28/2023 11/26/2024 1 1 * Outpatient Procedure (Routine) - Authorized Specialty Diagnoses / Procedures Referred By Contac t Referred To Contact [facility] Diagnoses Pleural effusion Encounter for other preprocedural examination Procedures ECG COMPLETE ECG ROUTINE ECG W/LEAST 12 LDS W/I&R Ronaldo Simmons MD, PhD [address] [facility] [place] [address] [facility] [address] [address] Referral ID Status Reason Start Date Expiration Date Visits Requested Visits Authorized [id number] Authorized Auto-Generat ed Referral 10/28/2023 10/23/2024 1 1 * Diagnostic Procedure Only (Routine) - Authorized Specialty Diagnoses / Procedures [facility] To [facility] MOLECULAR & FUNCTIONAL IMAGING Diagnoses Pleural effusion Encounter for other preprocedural examination Procedures NM CARDIAC PERF STRESS/EXERCISE MYOCARDIAL SPECT MULTIPLE STUDIES Ronaldo Simmons MD, PhD [address] [address] Molecular & Functional Imaging [address] [place] [address] Referral ID Status Reason Start Date Expiration Date Visits Requested Visits Authorized [id number] Authorized Auto-Generat ed Referral 10/28/2023 11/22/2024 1 1 * Outpatient Procedure (Routine) - Authorized Specialty Diagnoses / Procedures Referred By Contac t Referred To Contact [facility] Diagnoses Pleural effusion Encounter for other preprocedural examination Procedures LUNG DIFFUSION CAPACITY (DLCO) DIFFUSING CAPACITY Ronaldo Simmons MD, PhD [address] [address] [facility] [place] [address] [place] [address] Referral ID Status Reason Start Date Expiration Date Visits Requested Visits Authorized [id number] Authorized Auto-Generat ed Referral 10/28/2023 11/22/2024 1 1 * Outpatient Procedure (Routine) - Authorized Specialty Diagnoses / Procedures Referred By Contac t Referred To [facility] Diagnoses Pleural effusion Encounter for other preprocedural examination Procedures SPIROMETRY WITH DILATOR IF OBSTRUCTED BRNCDILAT RSPSE SPMTRY PRE&POST-BRNCDILAT ADMRonaldo Catalan MD, PhD [address] [facility] [address] [place] [id number] [place] [address] Referral ID Status Reason Start Date Expiration Date Visits Requested Visits Authorized [id number] Authorized Auto-Generat ed Referral 10/28/2023 11/22/2024 1 1 [facility] for referral (narrative)* Outpatient Procedure (Routine) - New Request Specialty Diagnoses / Procedures Referred By Contac t Referred To Contact [facility] Diagnoses Chronic cough Pleural effusion Procedures SPIROMETRY WITH DILATOR IF OBSTRUCTED BRNCDILAT RSPSE SPMTRY PRE&POST-BRNCDILAT ADMKaterina Licea APRN.ATTORNEY LAW CLERK [address] [place] [address] [address] Referral ID Status Reason Start Date Expiration Date Visits Requested Visits Authorized [id number] New Request Auto-Generat ed Referral 01/06/2024 02/04/2025 1 1 * Outpatient Procedure (Routine) - New Request Specialty Diagnoses / Procedures Referred By Contac t Referred To [facility] Diagnoses Chronic cough Pleural effusion Procedures NITRIC OXIDE, EXHALED NITRIC OXIDE GAS DETERMINATION Katerina Adler APRN.CNP [address] [place] [address] [address] Referral ID Status Reason Start Date Expiration Date Visits Requested Visits Authorized [id number] New Request Auto-Generat ed Referral 01/06/2024 02/04/2025 1 1 [facility] for referral (narrative)* Outpatient Procedure (Routine) - Closed Specialty Diagnoses / Procedures Referred By Contac t Referred To Contact [facility] Diagnoses Pleural effusion Interstitial pulmonary disease (HCC) Procedures LUNG VOLUMES Louise Douglas MD [address] [place] [address] [place] [address] Referral ID Status Reason Start Date Expiration Date V isits Requested Visits Authorized [id number] Closed Auto-Generate d Referral 03/17/2024 04/16/2025 1 1 * Outpatient Procedure (Routine) - Closed Specialty Diagnoses / Procedures Referred By Contac t Referred To Contact [facility] Diagnoses Chronic cough Pleural effusion Interstitial pulmonary disease (HCC) Procedures LUNG DIFFUSION CAPACITY (DLCO) DIFFUSING CAPACITY Louise Douglas MD [address] [place] [address] [address] Referral ID Status Reason Start Date Expiration Date V isits Requested Visits Authorized [id number] Closed Auto-Generate d Referral 03/17/2024 04/16/2025 1 1 * Outpatient Procedure (Routine) - Authorized Specialty Diagnoses / Procedures Referred By Contac t Referred To Contact [facility] Diagnoses Pericarditis, unspecified chronicity, unspecified type Procedures ECHO ECHO TTHRC R-T 2D W/WOM-MODE COMPL SPEC&COLR D Louise Douglas MD [address] [place] [address] [facility] [place] [id number] Referral ID Status Reason Start Date Expiration Date Visits Requested Visits Authorized [id number] Authorized Auto-Generat ed Referral 03/17/2024 03/17/2025 1 1 * MRI/CT (Routine) - Closed Specialty Diagnoses / Procedures Referred By Kelly stein Referred To Contact CT IMAGING Diagnoses Interstitial pulmonary disease (HCC) Procedures CT CHEST W IVCON DIAGNOSTIC COMPUTED TOMOGRAPHY THORAX W/CONTRAST Louise Douglas MD [address] [place] [address] Ct Imaging [place] [address] Referral ID Status Reason Start Date Expiration Date V isits Requested Visits Authorized [id number] Closed Auto-Generate d Referral 03/17/2024 04/16/2025 1 1 [facility] for referral (narrative)* Outpatient Procedure (Routine) - Closed Specialty Diagnoses / Procedures Referred By Kelly t Referred To Contact [facility] Diagnoses Pericarditis, unspecified chronicity, unspecified type Procedures ECHO ECHO TTHRC R-T 2D W/WOM-MODE COMPL SPEC&COLR D Louise Douglas MD [address] [place] [id number] [place] [address] Referral ID Status Reason Start Date Expiration Date V isits Requested Visits Authorized [id number] Closed Auto-Generate d Referral 03/17/2024 03/17/2025 1 1 [facility] for visit Narrative* Outpatient Procedure (Routine) - Closed Specialty Diagnoses / Procedures Referred By Kelly stein Referred To Contact [facility] Diagnoses Pericarditis, unspecified chronicity, unspecified type Procedures ECHO ECHO TTHRC R-T 2D W/WOM-MODE COMPL SPEC&COLR Louise Joseph MD [address] [place] [id number] [facility] [place] [address] [place], [place] [id number] Referral ID Status Reason Start Date Expiration Date V isits Requested Visits Authorized [id number] Closed Auto-Generate d Referral 03/17/2024 03/17/2025 1 1 [facility] for visit Narrative* Outpatient Procedure (Routine) - Closed Specialty Diagnoses / Procedures Referred By Contac t Referred To Contact [facility] Diagnoses Diarrhea, unspecified type Procedures COLONOSCOPY DIAGNOSTIC COLONOSCOPY FLX DX W/COLLJ SPEC WHEN PFRMD Sue Murillo MD [address] [place], [place] [phone] [facility] [place] [address] [place], [place] [phone] Referral ID Status Reason Start Date Expiration Date V isits Requested Visits Authorized [id number] Closed Auto-Generate d Referral 04/20/2024 04/20/2025 1 1 [facility] for visit Narrative* Diagnostic Procedure Only (Routine) - Closed Specialty Diagnoses / Procedures Referred By Contac t Referred To Contact XR IMAGING Diagnoses Pleural effusion Procedures XR CHEST 1V DECUBITUS RIGHT RADIOLOGIC EXAM CHEST SINGLE VIEW Triston Riggs MD [address] [place], [place] [id number] Phone: tel: fax: XR IMAGING [place] [address] Referral ID Status Reason Start Date Expiration Date V isits Requested Visits Authorized [id number] Closed Auto-Generate d Referral 07/20/2024 08/19/2025 1 1 [facility] Assessments Diagnosis Primary osteoarthritis of ri ght [...] note may be different from the original. [facility] [address] [place] [address] [address] [place] [address] Patient Name: Sav Raymundo Patient Age: 66 y.o. Patient : 1950 Date: 01/29/17 Progress Note Initial Visit Chief Complaint: No chief complaint on file. History of Present Illness: Sav Raymundo is a 66 y.o. male who is [...] note may be different from the original. [facility] [address] [facility] [address] [place] [address] Patient Name: Sav Raymundo Patient Age: 66 y.o. Patient : 1950 Date: 01/29/17 Progress Note Initial Visit Chief Complaint: No chief complaint on file. History of Present Illness: Sav Raymundo is a 66 y.o. male who is [...] Bynum, DO - 07/01/2019 10:05 AM EST [facility] [address] [place] [address] Patient Name: Sav Raymundo Patient Age: 69 y.o. Patient : 1950 Date: 07/01/19 Progress Note HPI: Sav Raymundo is a 69 y.o. male who is [...] KNEE ARTHROPLASTY; Surgeon: Karthik Calloway MD; Location: [facility] OR; Service: ARTHROPLASTY KNEE TOTAL Right 06/25/2016 Procedure: RIGHT TOTAL KNEE ARTHROPLASTY ; Surgeon: Karthik Calloway MD; Location: [facility] OR; Service: BASAL CELL CARCINOMA EXCISION [...] file Gets together: Not on file Attends religion service: Not on file Active member of [...] mouth every morning . vit A-vit C-vit L-mbhc-ctvnwu (EYE VITAMIN AND MINERALS) 7,160-113-100 [id number]-ad-[id number] Tab Take 1 tablet by mouth every [...] with no interval change from most recentimaging. Stedman view shows the patella tracks well without evidence of tilt or subluxation. There are no findings of fracture, significant osteolysis or loosening. Assessment: Sav Raymundo is a 69 y.o. male status post [...] expedite correspondence this note was generated by [employer] voice recognition software. Somegrammatical or spelling errors may occur using the system. documented in this encounter* Nena Bynum DO - 07/20/2020 2:42 PM EST [facility] [address] [place] [address] Patient Name: Sav Raymundo Patient Age: 70 y.o. Patient : 1950 Date: 07/20/20 Progress Note HPI: Sav Raymundo is a 70 y.o. male who is [...] KNEE ARTHROPLASTY; Surgeon: Karthik Calloway MD; Location: [facility] OR; Service: ARTHROPLASTY KNEE TOTAL Right 06/25/2016 Procedure: RIGHT TOTAL KNEE ARTHROPLASTY ; Surgeon: Karthik Calloway MD; Location: [facility] OR; Service: BASAL CELL CARCINOMA EXCISION [...] file Gets together: Not on file Attends religion service: Not on file Active member of [...] mg by mouth daily. vit A-vit C-vit Q-hqzn-xsmdfx (EYE VITAMIN AND MINERALS) 7,160-113-100 pksw-ct-iorr Tab Take 1 tablet by mouth every [...] with no interval change from most recentimaging. Stedman view shows the patella tracks well in the groove of the right knee, however the left patella continues to show some tilt but still tracks well within the groove with no changes from m ost previous imaging. There are no findings of fracture, significant osteolysis or loosening. Assessment: Sav Raymundo is a 70 y.o. male status post [...] expedite correspondence this note was generated by [employer] voice recognition software. Somegrammatical or spelling errors may occur using the system. 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 Advance Directive(s) 11/12/2023 2:37 PM Date Activated Date Inactivated Comments 12/20/2023 10:18 PM Question Answer Comments Full Code Order Discussed With: Patient Date Activated Date Inactivated Comments 12/20/2023 10:18 PM 12/26/2023 9:02 PM Date Activated Date Inactivated Comments 12/20/2023 10:18 PM 12/26/2023 9:02 PM Question Answer Comments Full Code Order Discussed With: Patient Date Activated Date Inactivated Comments 06/25/2016 1:54 PM 06/29/2016 3:41 PM Date Activated Date Inactivated Comments 08/23/2014 6:45 AM 08/25/2014 7:58 PM Summary Purpose Family History No Family History Records Found Relationship Condition Age at Onset Recorded Date/T christine father Unknown Not Specified Unknown Chief Complaint and Reason for Visit Chief Complaint not doing good - per Dr Ball Amb Documentation Unknown Reason for Visit Nausea & vomiting Primary hypertension Subacute cough Dyspnea on effort Murmur Chief Complaint not doing good - per Dr Ball Amb Documentation Unknown Unknown Reason for Visit Nausea & vomiting Primary hypertension Subacute cough Dyspnea on effort Murmur Chief Complaint not doing good - per Dr Ball Amb Documentation Unknown Unknown Unknown Reason for Visit Nausea & vomiting Primary hypertension Subacute cough Dyspnea on effort Murmur Reason for Referral Specialty Diagnoses / Procedures Referred By Contac t Referred To Contact CT IMAGING Diagnoses Pleural effusion Lung nodule Procedures CT CHEST WO IVCON DIAGNOSTIC COMPUTED TOMOGRAPHY THORAX W/O CNTRST Louise Douglas MD [address] [place] [address] Ct Imaging [place] [address] Referral ID Status Reason Start Date Expiration Date Visits Requested Visits Authorized [id number] New Request Auto-Generat ed Referral 05/18/2024 06/17/2025 1 1 Specialty Diagnoses / Procedures Referred By Contac t Referred To Contact CT IMAGING Diagnoses Diarrhea, unspecified type Abdominal pain, unspecified abdominal location Procedures CT ENTEROGRAPHY W IVCON CT ABD & PELVIS W/CONTRAST Sue Murillo MD [address] [place] [address] Ct Imaging [place] [address] Referral ID Status Reason Start Date Expiration Date V isits Requested Visits Authorized [id number] Closed Auto-Generate d Referral 04/20/2024 05/20/2025 1 1 Specialty Diagnoses / Procedures Referred By Contac t Referred To Contact Gastroenterology Diagnoses Diarrhea, unspecified type Procedures CONSULT TO GASTROENTEROLOGY OFFICE/OUTPATIENT [facility] 60 MINUTES Steffen Mahoney MD [address] [place] [id number] Referral ID Status Reason Start Date Expiration Date Visits Requested Visits Authorized [id number] Authorized PCP Requested Referral 03/30/2025 1 1 Specialty Diagnoses / Procedures Referred By Contac t Referred To Contact Rheumatology Diagnoses Pleural effusion Elevated sed rate Elevated C-reactive protein (CRP) Procedures CONSULT TO RHEUM/IMMUN DISEASE OFFICE/OUTPATIENT [facility] 60 MINUTES Tita Landry APRN.CNP [address] [place] [address] Referral ID Status Reason Start Date Expiration Date Visits Requested Visits Authorized [id number] Authorized PCP Requested Referral 02/04/2024 02/03/2025 1 1 Additional Source Comments Reason for Visit (unrecogniz ed section and content) Reason Comments Established Patient Follow-Up Specialty Diagnoses / Procedures Referred By Contac t Referred To Contact Diagnoses Anasarca Procedures [facility]BS CARE HIGH MDM 75 MINUTES [address] [place] [address] Referral ID Status Reason Start Date Expiration Date Visits Re quested Visits Authorized [id number] 1 1 Reason Comments Follow-up Reason Comments other Lef [...] Medication Refill 02/11/2023 Reason Comments External Referrals/resources Reason Comments Consult Reason Comments Schedule Surgery Right VATS biopsy/ p leurodesis cs=2.5 los =2-3 Reason Comments Patient Question pt not Reason Comments Pre-Op Exam Specialty Diagnoses / Procedures Referred By Contac t Referred To Contact ADMITTING Diagnoses Bronchiolar disease Procedures THORACENTESIS NEEDLE/CATH PLEURA W/IMAGING THORACENTESIS NEEDLE OR CATHETER ASPIRATION OF THE PLEURAL SPACE W IMAGING GUIDANCE [facility] [place] Pulm Lab H23 [address] [place] [address] Referral ID Status Reason Start Date Expiration Date Visits Re quested Visits Authorized [id number] 1 1 Reason Comments Radiology NM Specialty Diagnoses / Procedures Referred By Contac t Referred To Contact MOLECULAR & FUNCTIONAL IMAGING Diagnoses Pleural effusion Encounter for other preprocedural examination Procedures NM CARDIAC PERF STRESS/EXERCISE MYOCARDIAL SPECT MULTIPLE STUDIES Ronaldo Simmons MD, PhD [address] [facility] [address] [place] [address] Molecular & Functional Imaging [address] [place] [address] Referral ID Status Reason Start Date Expiration Date V isits Requested Visits Authorized [id number] Closed Auto-Generate d Referral 10/28/2023 11/22/2024 1 1 Reason Comments Schedule and Confirm Appointments Reason Comments Effusion Reason Comments Hospital Follow Up Reason Comments Received Outside Medical Records Reason Comments Established Patient Follow-Up Reason Comments Breathing Problem Pleural Effusion on the right Medication Follow-up Reason Comments Patient Update Pleurex output Reason Comments Post Dc Program Call - Needs Attn Reason Comments Patient Update Reason Comments Spirometry Specialty Diagnoses / Procedures Referred By Contac t Referred To [facility] RESPIRATORY HELIX Diagnoses Chronic cough Pleural effusion Procedures NITRIC OXIDE, EXHALED NITRIC OXIDE GAS DETERMINATION Katerina Adler, SOFTWARE TOOLS DEVELOPER.ATTORNEY LAW CLERK [address] [place] [address] [address] Referral ID Status Reason Start Date Expiration Date V isits Requested Visits Authorized [id number] Closed Auto-Generate d Referral 01/06/2024 02/04/2025 1 1 Specialty Diagnoses / Procedures Referred By Contac t Referred To [facility] RESPIRATORY HELIX Diagnoses Chronic cough Pleural effusion Procedures SPIROMETRY WITH DILATOR IF OBSTRUCTED BRNCDILAT RSPSE SPMTRY PRE&POST-BRNCDILAT ADMN Katerina Adler, SOFTWARE TOOLS DEVELOPER.ATTORNEY LAW CLERK [address] [place] [address] [address] Referral ID Status Reason Start Date Expiration Date V isits Requested Visits Authorized [id number] Closed Auto-Generate d Referral 01/06/2024 02/04/2025 1 1 [facility]ty Diagnoses / Procedures [facility] RESPIRATORY HELIX Diagnoses Chronic cough Pleural effusion Interstitial pulmonary disease (HCC) Procedures LUNG DIFFUSION CAPACITY (DLCO) DIFFUSING CAPACITY Louise Douglas MD [address] [place] [address] [address] Referral ID Status Reason Start Date Expiration Date V isits Requested Visits Authorized [id number] Closed Auto-Generate d Referral 03/17/2024 04/16/2025 1 1 Specialty Diagnoses / Procedures [facility] RESPIRATORY HELIX Diagnoses Pleural effusion Interstitial pulmonary disease (HCC) Procedures LUNG VOLUMES Louise Douglas MD [address] [place] [address] Respiratory [facility] [place] [phone] Referral ID Status Reason Start Date Expiration Date V isits Requested Visits Authorized [id number] Closed Auto-Generate d Referral 03/17/2024 04/16/2025 1 1 Reason Comments New Specialty Diagnoses / Procedures Referred By Contac t Referred To Contact CT IMAGING Diagnoses Interstitial pulmonary disease (HCC) Procedures CT CHEST W IVCON DIAGNOSTIC COMPUTED TOMOGRAPHY THORAX W/CONTRAST Louise Douglas MD [address] [place] [id number] Imaging [place] [address] Referral ID Status Reason Start Date Expiration Date V isits Requested Visits Authorized [id number] Closed Auto-Generate d Referral 03/17/2024 04/16/2025 1 1 Reason Comments recurrent pleural effusion Specialty Diagnoses / Procedures Referred By Contac t Referred To Contact Rheumatology Diagnoses Pleural effusion Elevated sed rate Elevated C-reactive protein (CRP) Procedures CONSULT TO RHEUM/IMMUN DISEASE OFFICE/OUTPATIENT [facility] 60 MINUTES Tita Landry APRN.ATTORNEY LAW CLERK [address] [place] [address] Referral ID Status Reason Start Date Expiration Date V isits Requested Visits Authorized [id number] Closed PCP Requested Referral 02/04/2024 02/03/2025 [address] Specialty Diagnoses / Procedures Referred By Contac t Referred To Contact CT IMAGING Diagnoses Diarrhea, unspecified type Abdominal pain, unspecified abdominal location Procedures CT ENTEROGRAPHY W IVCON CT ABD & PELVIS W/CONTRAST Sue Murillo MD [address] [place] [id number] Imaging [place] [address] Referral ID Status Reason Start Date Expiration Date V isits Requested Visits Authorized [id number] Closed Auto-Generate d Referral 04/20/2024 05/20/2025 1 1 Reason Comments Diarrhea Specialty Diagnoses / Procedures Referred By Contac t Referred To Contact Gastroenterology Diagnoses Diarrhea, unspecified type Procedures CONSULT TO GASTROENTEROLOGY OFFICE/OUTPATIENT [facility] MDM 60 MINUTES Steffen Mahoney MD [address] [place] [phone] Referral ID Status Reason Start Date Expiration Date V isits Requested Visits Authorized [id number] Closed PCP Requested Referral 03/30/2024 03/30/2025 1 1 Reason Comments Breathing Problem Follow up Reason Comments Follow Up Reason Comments Established Patient Diarrhea f/u Reason Comments Effusion Recurrent pleural on right Reason Comments Appointment Reason Onset Date Comments Medication Refill 07/08/2024 Reason Onset Date Comments Medication Refill 07/10/2024 Reason Comments Orders Reason Comments Eye Exam Reason Comments Patient Question Reason Comments Patient Request Reason Comments Established Patient Reason Onset Date Comments Refill Request 08/21/2024 Reason Comments Established Patient Diarrhea 3 mos follo w up Reason Comments Skin Check Care Teams (unrecognized sec tion and content) Supervisor Photostat Relationship Specialty Start Date End Date Yuli Mariscal DO [address] [facility] [place] [address] PCP - General Internal Medicine 06/29/14 Yuli Mariscal DO [address] [facility] [place] [address] Internal Medicine 06/29/14 Karthik Calloway MD Consulting Physician Orthopedic Surgery 01/28/17 Supervisor Photostat Relationship Specialty Start Date End Date Yuli Mariscal DO [address] [facility] [place] [address] PCP - General Internal Medicine 06/29/14 Yuli Mariscal DO [address] [facility] [place] [address] Internal Medicine 06/29/14 Karthik Calloway MD [address] [facility] [place] [address] Consulting Physician Orthopedic Surgery 01/28/17 Supervisor Photostat Relationship Specialty Start Date End Date Yuli Mariscal DO [address] [facility] [place] [address] PCP - General Internal Medicine 06/29/14 Yuli Mariscal DO [address] [facility] [place] [address] Internal Medicine 06/29/14 Karthik Calloway MD [address] [facility] [address] Consulting Physician Orthopedic Surgery 01/28/17 Supervisor Photostat Relationship Specialty Start Date End Date Yuli Mariscal DO [address] [facility] [address] PCP - General Internal Medicine 06/29/14 Yuli Mariscal DO [address] [facility] [address] Internal Medicine 06/29/14 Karthik Calloway MD [address] [facility] [address] Consulting Physician Orthopedic Surgery 01/28/17 Supervisor Photostat Relationship Specialty Start Date End Date Yuli Mariscal DO [address] [facility] [address] PCP - General Internal Medicine 06/29/14 Yuli Mariscal DO [address] [facility] [address] Internal Medicine 06/29/14 Karthik Calloway MD [address] [facility] [address] Consulting Physician Orthopedic Surgery 01/28/17 Supervisor Photostat Relationship Specialty Start Date End Date Yuli Mariscal DO [address] [facility] [address] PCP - General Internal Medicine 06/29/14 Yuli Mariscal DO [address] [facility] [address] Internal Medicine 06/29/14 Karthik Calloway MD [address] [facility] [address] Consulting Physician Orthopedic Surgery 01/28/17 Supervisor Photostat Relationship Specialty Start Date End Date Yuli Mariscal DO [address] [facility] [address] PCP - General Internal Medicine 06/29/14 Yuli Mariscal DO [address] [facility] [address] Internal Medicine 06/29/14 Karthik Calloway MD [address] [facility] [address] Consulting Physician Orthopedic Surgery 01/28/17 Supervisor Photostat Relationship Specialty Start Date End Date Yuli Mariscal DO [address] [facility] [address] PCP - General Internal Medicine 06/29/14 Yuli Mariscal DO [address] [facility] [address] Internal Medicine 06/29/14 Karthik Calloway MD [address] [facility] [address] Consulting Physician Orthopedic Surgery 01/28/17 Supervisor Photostat Relationship Specialty Start Date End Date Yuli Mariscal DO [address] [facility] [address] PCP - General Internal Medicine 06/29/14 Yuli Mariscal DO [address] [facility] [address] Internal Medicine 06/29/14 Karthik Calloway MD [address] [facility] [address] Consulting Physician Orthopedic Surgery 01/28/17 Team Status: Inactive Member Role Status Dates Yuli Mariscal DO Primary Care Provide r, Attending Provider Active Start: August 13, 2023 End: August 13, 2023 Team Status: Active Member Role Status Dates Yuli Mariscal DO Primary Care Provide r, Attending Provider Active Start: August 15, 2023 Team Status: Active Member Role Status Dates Yuli Mariscal , Primary Care Provide r, Attending Provider Active Start: August 21, 2023 Team Status: Active Member Role Status Dates Yuli Mariscal DO Primary Care Provide r, Attending Provider Active Start: August 22, 2023 Team Status: Active Member Role Status Dates Yuli Mariscal , DO Primary Care Provide r, Attending Provider Active Start: August 28, 2023 Team Status: Active Member Role Status Dates Yuli Mariscal DO Primary Care Provide r, Attending Provider [...] Team Status: Active Member Role Status Dates Yuli Mariscal DO Attending Provider Active Sta rt: September 11, 2023 Team Status: Active Member Role Status Dates Yuli Mariscal DO Attending Provider Active Sta rt: October 01, 2023 Team Status: Inactive Member Role Status Dates Calni Gotti , DO Attending Provider Active St art: October 02, 2023 End: October 02, 2023 Supervisor Photostat Relationship Specialty Start Date End Date Yuli Mariscal DO [address] [place] [address] PCP - General Internal Medicine 12/07/[address] Sales [address] [place] [address] Referring Gastroenterology 12/05/20 Supervisor Photostat Relationship Specialty Start Date End Date Yuli Mariscal DO [address] [place] [address] PCP - General Internal Medicine 12/07/20 Jere Sales [address] [address] Referring Gastroenterology 12/05/20 Calin Gotti DO [address] [place] [facility] [place] [address] Internal Medicine 10/16/23 Supervisor Photostat Relationship Specialty Start Date End Date Yuli Mariscal DO [address] [place] [address] PCP - General Internal Medicine 12/07/[address] [facility] [address] [place] [address] Referring Gastroenterology 12/05/20 Calin Gotti DO [address] [place] [facility] [place] [address] Internal Medicine 10/16/23 Supervisor Photostat Relationship Specialty Start Date End Date Yuli Mariscal DO [address] [place] [address] PCP - General Internal Medicine 12/07/20 Jere Sales [address] [place] [address] Referring Gastroenterology 12/05/20 Calin Gotti DO [address] [place] [facility] [place] [address] Internal Medicine 10/16/23 Supervisor Photostat Relationship Specialty Start Date End Date Yuli Mariscal DO [address] [place] [address] PCP - General Internal Medicine 12/07/20 Jere Sales [address] [place] [address] Referring Gastroenterology 12/05/20 Calin Gotti DO [address] [place] [facility] [place] [address] Internal Medicine 10/16/23 Supervisor Photostat Relationship Specialty Start Date End Date Yuli Mariscal DO [address] [place] [address] PCP - General Internal Medicine 12/07/20 Jere Sales [address] [place] [address] Referring Gastroenterology 12/05/20 Calin Gotti DO [address] [place] [facility] [place] [place] [address] Internal Medicine 10/16/23 Supervisor Photostat Relationship Specialty Start Date End Date Yuli Mariscal DO [address] [place] [address] PCP - General Internal Medicine 12/07/20 Jere Sales [address] [place] [address] Referring Gastroenterology 12/05/20 Calin Gotti DO [address] [place] [facility] [place] [address] Internal Medicine 10/16/23 Supervisor Photostat Relationship Specialty Start Date End Date Yuli Mariscal DO [address] [place] [address] PCP - General Internal Medicine 12/07/20 Jere Sales [address] [place] [address] Referring Gastroenterology 12/05/20 Calin Gotti DO [address] [place] [facility] [place] [address] Internal Medicine 10/16/23 Supervisor Photostat Relationship Specialty Start Date End Date Yuli Mariscal DO [address] [place] [address] PCP - General Internal Medicine 12/07/20 Jere Sales [address] [place] [address] Referring Gastroenterology 12/05/20 Calin Gotti DO [address] [place] [facility] [place] [place] [address] Internal Medicine 10/16/23 Supervisor Photostat Relationship Specialty Start Date End Date Yuli Mariscal DO [address] [place] [address] PCP - General Internal Medicine 12/07/20 Jere Sales [address] [place] [address] Referring Gastroenterology 12/05/20 Calin Gotti DO [address] [place] [facility] [place] [place] [address] Internal Medicine 10/16/23 Supervisor Photostat Relationship Specialty Start Date End Date Yuli Mariscal DO [address] [place] [address] PCP - General Internal Medicine 12/07/20 Jere Sales [address] [place] [address] Referring Gastroenterology 12/05/20 Calin Gotti DO [address] [place] [facility] [place] [place] [address] Internal Medicine 10/16/23 Supervisor Photostat Relationship Specialty Start Date End Date Yuli Mariscal DO [address] [place] [address] PCP - General Internal Medicine 12/07/20 Jere Sales [address] [place] [address] Referring Gastroenterology 12/05/20 Calin Gotti DO [address] [place] [facility] [place] [place] [address] Internal Medicine 10/16/23 Supervisor Photostat Relationship Specialty Start Date End Date Yuli Mariscal DO [address] [place] [address] PCP - General Internal Medicine 12/07/20 Jere Sales [address] [place] [address] Referring Gastroenterology 12/05/20 Calin Gotti DO [address] [place] [facility] [place] [place] [address] Internal Medicine 10/16/23 Supervisor Photostat Relationship Specialty Start Date End Date Yuli Mariscal DO [address] [place] [address] PCP - General Internal Medicine 12/07/[address] [facility] [address] [place] [address] Referring Gastroenterology 12/05/20 Calin Gotti DO [address] [place] [facility] [place] [address] Internal Medicine 10/16/23 Supervisor Photostat Relationship Specialty Start Date End Date Yuli Mariscal DO [address] [place] [address] PCP - General Internal Medicine 12/07/20 Jere Sales [address] [place] [address] Referring Gastroenterology 12/05/20 Calin Gotti DO [address] [place] [facility] [place] [address] Internal Medicine 10/16/23 Supervisor Photostat Relationship Specialty Start Date End Date Yuli Mariscal DO [address] [place] [address] PCP - General Internal Medicine 12/07/[address] [facility] [address] [place] [address] Referring Gastroenterology 12/05/20 Calin Gotti DO [address] [place] [facility] [place] [place] [address] Internal Medicine 10/16/23 Supervisor Photostat Relationship Specialty Start Date End Date Yuli Mariscal DO [address] [place] [address] PCP - General Internal Medicine 12/07/[address] [facility] [address] [place] [address] Referring Gastroenterology 12/05/20 Calin Gotti DO [address] [place] [facility] [place] [place] [address] Internal Medicine 10/16/23 Supervisor Photostat Relationship Specialty Start Date End Date Yuli Mariscal DO [address] [place] [address] PCP - General Internal Medicine 12/07/20 Jere Sales [address] [place] [address] Referring Gastroenterology 12/05/20 Calin Gotti DO [address] [place] [facility] [place] [place] [address] Internal Medicine 10/16/23 Supervisor Photostat Relationship Specialty Start Date End Date Yuli Mariscal DO [address] [place] [address] PCP - General Internal Medicine 12/07/[address] [facility] [address] [place] [address] Referring Gastroenterology 12/05/20 Calin Gotti DO [address] [place] [facility] [place] [place] [address] Internal Medicine 10/16/23 Supervisor Photostat Relationship Specialty Start Date End Date Yuli Mariscal DO [address] [place] [address] PCP - General Internal Medicine 12/07/[address] [facility] [address] [place] [address] Referring Gastroenterology 12/05/20 Calin Gotti DO [address] [place] [facility] [place] [place] [address] Internal Medicine 10/16/23 Supervisor Photostat Relationship Specialty Start Date End Date Yuli Mariscal DO [address] [place] [address] PCP - General Internal Medicine 12/07/20 Jere Sales [address] [place] [address] Referring Gastroenterology 12/05/20 Calin Gotti DO [address] [place] [facility] [place] [place] [address] Internal Medicine 10/16/23 Supervisor Photostat Relationship Specialty Start Date End Date Yuli Mariscal DO [address] [place] [address] PCP - General Internal Medicine 12/07/[address] [facility] [address] [place] [address] Referring Gastroenterology 12/05/20 Calin Gotti DO [address] [place] [facility] [place] [place] [address] Internal Medicine 10/16/23 Supervisor Photostat Relationship Specialty Start Date End Date Yuli Mariscal DO [address] [place] [address] PCP - General Internal Medicine 12/07/20 Jere Sales [address] [address] Referring Gastroenterology 12/05/20 Calin Gotti DO [address] [place] [facility] [place] [place] [address] Internal Medicine 10/16/23 Supervisor Photostat Relationship Specialty Start Date End Date Yuli Mariscal DO [address] [place] [address] PCP - General Internal Medicine 12/07/20 Jere Sales [address] [place] [address] Referring Gastroenterology 12/05/20 Calin Gotti DO [address] [place] [facility] [place] [place] [address] Internal Medicine 10/16/23 Supervisor Photostat Relationship Specialty Start Date End Date Yuli Mariscal DO [address] [place] [address] PCP - General Internal Medicine 12/07/20 Jere Sales [address] [place] [address] Referring Gastroenterology 12/05/20 Calin Gotti DO [address] [place] [facility] [place] [place] [address] Internal Medicine 10/16/23 Supervisor Photostat Relationship Specialty Start Date End Date Yuli Mariscal DO [address] [place] [address] PCP - General Internal Medicine 12/07/20 [facility] [address] [place] [address] Referring Gastroenterology 12/05/20 Calin Gotti DO [address] [place] [facility] [place] [place] [address] Internal Medicine 10/16/23 Supervisor Photostat Relationship Specialty Start Date End Date Yuli Mariscal DO [address] [place] [address] PCP - General Internal Medicine 12/07/20 Jere Sales [address] [place] [address] Referring Gastroenterology 12/05/20 Calin Gotti DO [address] [place] [facility] [place] [place] [address] Internal Medicine 10/16/23 Supervisor Photostat Relationship Specialty Start Date End Date Yuli Mariscal DO [address] [place] [address] PCP - General Internal Medicine 12/07/20 Jere Sales [address] [place] [address] Referring Gastroenterology 12/05/20 Calin Gotti DO [address] [place] [facility] [place] [place] [address] Internal Medicine 10/16/23 Supervisor Photostat Relationship Specialty Start Date End Date Yuli Mariscal DO [address] [place] [address] PCP - General Internal Medicine 12/07/20 Jere Sales [address] [place] [address] Referring Gastroenterology 12/05/20 Calin Gotti DO [address] [place] [facility] [place] [place] [address] Internal Medicine 10/16/23 Supervisor Photostat Relationship Specialty Start Date End Date Yuli Mariscal DO [address] [place] [address] PCP - General Internal Medicine 12/07/20 Jere Sales [address] [place] [address] Referring Gastroenterology 12/05/20 Calin Gotti DO [address] [place] [facility] [place] [address] Internal Medicine 10/16/23 Supervisor Photostat Relationship Specialty Start Date End Date Yuli Mariscal DO [address] [place] [address] PCP - General Internal Medicine 12/07/20 Jere Sales [address] [place] [address] Referring Gastroenterology 12/05/20 Calin Gotti DO [address] [place] [facility] [place] [address] Internal Medicine 10/16/23 Supervisor Photostat Relationship Specialty Start Date End Date Yuli Mariscal DO [address] [place] [address] PCP - General Internal Medicine 12/07/20 Jere Sales [address] [place] [address] Referring Gastroenterology 12/05/20 Calin Gotti DO [address] [place] [facility] [place] [address] Internal Medicine 10/16/23 Supervisor Photostat Relationship Specialty Start Date End Date Yuli Mariscal DO [address] [place] [address] PCP - General Internal Medicine 12/07/20 Jere Sales [address] [place] [address] Referring Gastroenterology 12/05/20 Calin Gotti DO [address] [place] [facility] [place] [address] Internal Medicine 10/16/23 Supervisor Photostat Relationship Specialty Start Date End Date Yuli Mariscal DO [address] [place] [address] PCP - General Internal Medicine 12/07/[address] [facility] [address] [place] [address] Referring Gastroenterology 12/05/20 Calin Gotti DO [address] [place] [facility] [place] [place] [address] Internal Medicine 10/16/23 Supervisor Photostat Relationship Specialty Start Date End Date Yuli Mariscal DO [address] [place] [address] PCP - General Internal Medicine 12/07/20 Jere Sales [address] [place] [address] Referring Gastroenterology 12/05/20 Calin Gotti DO [address] [place] [facility] [place] [address] Internal Medicine 10/16/23 Supervisor Photostat Relationship Specialty Start Date End Date Yuli Mariscal DO [address] [place] [address] PCP - General Internal Medicine 12/07/[address] [facility] [address] [place] [address] Referring Gastroenterology 12/05/20 Calin Gotti DO [address] [place] [facility] [place] [address] Internal Medicine 10/16/23 Supervisor Photostat Relationship Specialty Start Date End Date Yuli Mariscal DO [address] [place] [address] PCP - General Internal Medicine 12/07/20 Jere Sales [address] [place] [address] Referring Gastroenterology 12/05/20 Calin Gotti DO [address] [place] [facility] [place] [address] Internal Medicine 10/16/23 Supervisor Photostat Relationship Specialty Start Date End Date Yuli Mariscal DO [address] [place] [address] PCP - General Internal Medicine 12/07/20 Jere Sales [address] [place] [address] Referring Gastroenterology 12/05/20 Calin Gotti DO [address] [place] [facility] [place] [place] [address] Internal Medicine 10/16/23 Supervisor Photostat Relationship Specialty Start Date End Date Yuli Mariscal DO [address] [place] [address] PCP - General Internal Medicine 12/07/20 Jere Sales [address] [place] [address] Referring Gastroenterology 12/05/20 Calin Gotti DO [address] [place] [facility] [place] [address] Internal Medicine 10/16/23 Supervisor Photostat Relationship Specialty Start Date End Date Yuli Mariscal DO [address] [place] [address] PCP - General Internal Medicine 12/07/[address] [facility] [address] [place] [address] Referring Gastroenterology 12/05/20 Calin Gotti DO [address] [place] [facility] [place] [place] [address] Internal Medicine 10/16/23 Supervisor Photostat Relationship Specialty Start Date End Date Yuli Mariscal DO [address] [place] [address] PCP - General Internal Medicine 12/07/[address] [facility] [address] [place] [address] Referring Gastroenterology 12/05/20 Calin Gotti DO [address] [place] [facility] [place] [address] Internal Medicine 10/16/23 Supervisor Photostat Relationship Specialty Start Date End Date Yuli Mariscal DO [address] [place] [address] PCP - General Internal Medicine 12/07/20 Jere Sales [address] [place] [address] Referring Gastroenterology 12/05/20 Calin Gotti DO [address] [place] [facility] [place] [address] Internal Medicine 10/16/23 Supervisor Photostat Relationship Specialty Start Date End Date Yuli Mariscal DO [address] [place] [address] PCP - General Internal Medicine 12/07/20 Jere Sales [address] [place] [address] Referring Gastroenterology 12/05/20 Calin Gotti DO [address] [place] [facility] [place] [address] Internal Medicine 10/16/23 Supervisor Photostat Relationship Specialty Start Date End Date Yuli Mariscal DO [address] [place] [address] PCP - General Internal Medicine 12/07/20 Jere Sales MD [address] [place] [address] Referring Gastroenterology 12/05/20 Calin Gotti DO [address] [place] [facility] [place] [address] Internal Medicine 10/16/23 Supervisor Photostat Relationship Specialty Start Date End Date Yuli Mariscal DO [address] [place] [facility] [address] PCP - General Internal Medicine 06/29/14 Yuli Mariscal DO [address] [place] [facility] [address] Internal Medicine 06/29/14 Karthik Calloway MD [address] [place] [address] Consulting Physician Orthopedic Surgery 01/28/17 Supervisor Photostat Relationship Specialty Start Date End Date Yuli Mariscal DO [address] [place] [address] PCP - General Internal Medicine 12/07/20 Jere Sales MD [address] [place] [address] Referring Gastroenterology 12/05/20 Calin Gotti DO [address] [place] [facility] [place] [address] Internal Medicine 10/16/23 Supervisor Photostat Relationship Specialty Start Date End Date Yuli Mariscal DO [address] [place] [address] PCP - General Internal Medicine 12/07/20 Jere Sales MD [address] [place] [address] Referring Gastroenterology 12/05/20 Calin Gotti DO [address] [place] [facility] [place] [facility] [place] [address] Internal Medicine 10/16/23 Supervisor Photostat Relationship Specialty Start Date End Date Yuli Mariscal DO [address] [place] [address] PCP - General Internal Medicine 12/07/20 Jere Sales MD [address] [place] [address] Referring Gastroenterology 12/05/20 Calin Gotti DO [address] [place] [facility] [place] [address] Internal Medicine 10/16/23 Supervisor Photostat Relationship Specialty Start Date End Date Yuli Mariscal DO [address] [place] [address] PCP - General Internal Medicine 12/07/20 Jere Sales MD [address] [place] [address] Referring Gastroenterology 12/05/20 Calin Gotti DO [address] [place] [facility] [place] [place] [address] Internal Medicine 10/16/23 Supervisor Photostat Relationship Specialty Start Date End Date Yuli Mariscal DO [address] [place] [address] PCP - General Internal Medicine 12/07/20 Jere Sales MD [address] [place] [address] Referring Gastroenterology 12/05/20 Calin Gotti DO [address] [place] [facility] [place] [place] [address] Internal Medicine 10/16/23 Supervisor Photostat Relationship Specialty Start Date End Date Yuli Mariscal DO [address] [place] [address] PCP - General Internal Medicine 12/07/20 Jere Sales MD [address] [place] [address] Referring Gastroenterology 12/05/20 Calin Gotti DO [address] [place] [facility] [place] [place] [address] Internal Medicine 10/16/23 Supervisor Photostat Relationship Specialty Start Date End Date Yuli Mariscal DO [address] [place] [address] PCP - General Internal Medicine 12/07/20 Jere Sales MD [address] [place] [address] Referring Gastroenterology 12/05/20 Calin Gotti DO [address] [place] [facility] [place] [place] [address] Internal Medicine 10/16/23 Supervisor Photostat Relationship Specialty Start Date End Date Yuli Mariscal DO [address] [place] [address] PCP - General Internal Medicine 12/07/20 Jere Sales MD [address] [facility] [address] [place] [address] Referring Gastroenterology 12/05/20 Calin Gotti DO [address] [place] [facility] [place] [place] [address] Internal Medicine 10/16/23 Supervisor Photostat Relationship Specialty Start Date End Date Yuli Mariscal DO [address] [place] [address] PCP - General Internal Medicine 12/07/20 Jere Sales MD [address] [place] [address] Referring Gastroenterology 12/05/20 Calin Gotti DO [address] [place] [facility] [place] [facility] [address] Internal Medicine 10/16/23 Supervisor Photostat Relationship Specialty Start Date End Date Yuli Mariscal DO [address] [place] [address] PCP - General Internal Medicine 12/07/20 Jere Sales MD [address] [place] [address] Referring Gastroenterology 12/05/20 Calin Gotti DO [address] [place] [facility] [place] [facility] [address] Internal Medicine 10/16/23 Supervisor Photostat Relationship Specialty Start Date End Date Yuli Mariscal DO [address] [place] [address] PCP - General Internal Medicine 12/07/20 Jere Sales MD [address] [place] [address] Referring Gastroenterology 12/05/20 Calin Gotti DO [address] [place] [address] Internal Medicine 10/16/23 Supervisor Photostat Relationship Specialty Start Date End Date Yuli Mariscal DO [address] [facility] [place] [address] PCP - General Internal Medicine 12/07/20 Jere Sales MD [address] [facility] [address] [place] [address] Referring Gastroenterology 12/05/20 Calin Gotti DO [address] [place] [address] Internal Medicine 10/16/23 (unrecognized sect ion and content) No Status Records FoundNo Status Records FoundNo Status Records FoundNo Status Records FoundNo Status Records FoundNo Status Records FoundNo Status Records FoundNo Status Records Found INFORMATION SOURCE (unrecogn ized section and content) DATE CREATED AUTHOR 03/22/2022 [facility] DATE CREATED AUTHOR AUTHOR'S ORGANIZ ATION 02/16/2023 [facility] DATE CREATED AUTHOR AUTHOR'S ORGANIZ ATION 10/13/2023 [facility] DATE CREATED AUTHOR AUTHOR[facility]S [facility]IZ AT[facility] DATE CREATED AUTHOR AUTHOR'S ORGANIZ ATION 03/23/2024 [facility] DATE CREATED AUTHOR AUTHOR'S ORGANIZ ATION 05/02/2024 [facility] DATE CREATED AUTHOR AUTHOR'S ORGANIZ ATION 08/25/2024 [facility] DATE CREATED AUTHOR AUTHOR'S ORGANIZ ATION 08/30/2024 [facility] EPIC Goals (unrecognized section and content) Goals may be documented in a n alternate section Source Comments (unrecognize d section and content) In the event this informatio n is protected by the Federal Confidentiality of Alcohol and Drug Abuse Patient Records regulations: The Federal rules restrict any use of the information to criminally investigate or prosecute any alcohol or drug abuse patient.[facility] the event this information is protected by the Federal Confidentiality of Alcohol and Drug Abuse Patient Records regulations: The Federal rules restrict any use of the information to criminally investigate or prosecute any alcohol or drug abuse patient.[facility] the event this information is protected by the Federal Confidentiality of Alcohol and Drug Abuse Patient Records regulations: The Federal rules restrict any use of the information to criminally investigate or prosecute any alcohol or drug abuse patient.[facility] the event this information is protected by the Federal Confidentiality of Alcohol and Drug Abuse Patient Records regulations: The Federal rules restrict any use of the information to criminally investigate or prosecute any alcohol or drug abuse patient.[facility] the event this information is protected by the Federal Confidentiality of Alcohol and Drug Abuse Patient Records regulations: The Federal rules restrict any use of the information to criminally investigate or prosecute any alcohol or drug abuse patient.[facility] the event this information is protected by the Federal Confidentiality of Alcohol and Drug Abuse Patient Records regulations: The Federal rules restrict any use of the information to criminally investigate or prosecute any alcohol or drug abuse patient.[facility] the event this information is protected by the Federal Confidentiality of Alcohol and Drug Abuse Patient Records regulations: The Federal rules restrict any use of the information to criminally investigate or prosecute any alcohol or drug abuse patient.[facility] the event this information is protected by the Federal Confidentiality of Alcohol and Drug Abuse Patient Records regulations: The Federal rules restrict any use of the information to criminally investigate or prosecute any alcohol or drug abuse patient.[facility] the event this information is protected by the Federal Confidentiality of Alcohol and Drug Abuse Patient Records regulations: The Federal rules restrict any use of the information to criminally investigate or prosecute any alcohol or drug abuse patient.[facility] the event this information is protected by the Federal Confidentiality of Alcohol and Drug Abuse Patient Records regulations: The Federal rules restrict any use of the information to criminally investigate or prosecute any alcohol or drug abuse patient.[facility] the event this information is protected by the Federal Confidentiality of Alcohol and Drug Abuse Patient Records regulations: The Federal rules restrict any use of the information to criminally investigate or prosecute any alcohol or drug abuse patient.[facility] the event this information is protected by the Federal Confidentiality of Alcohol and Drug Abuse Patient Records regulations: The Federal rules restrict any use of the information to criminally investigate or prosecute any alcohol or drug abuse patient.[facility] the event this information is protected by the Federal Confidentiality of Alcohol and Drug Abuse Patient Records regulations: The Federal rules restrict any use of the information to criminally investigate or prosecute any alcohol or drug abuse patient.[facility] the event this information is protected by the Federal Confidentiality of Alcohol and Drug Abuse Patient Records regulations: The Federal rules restrict any use of the information to criminally investigate or prosecute any alcohol or drug abuse patient.[facility] the event this information is protected by the Federal Confidentiality of Alcohol and Drug Abuse Patient Records regulations: The Federal rules restrict any use of the information to criminally investigate or prosecute any alcohol or drug abuse patient.[facility] the event this information is protected by the Federal Confidentiality of Alcohol and Drug Abuse Patient Records regulations: The Federal rules restrict any use of the information to criminally investigate or prosecute any alcohol or drug abuse patient.[facility] the event this information is protected by the Federal Confidentiality of Alcohol and Drug Abuse Patient Records regulations: The Federal rules restrict any use of the information to criminally investigate or prosecute any alcohol or drug abuse patient.[facility] the event this information is protected by the Federal Confidentiality of Alcohol and Drug Abuse Patient Records regulations: The Federal rules restrict any use of the information to criminally investigate or prosecute any alcohol or drug abuse patient.[facility] the event this information is protected by the Federal Confidentiality of Alcohol and Drug Abuse Patient Records regulations: The Federal rules restrict any use of the information to criminally investigate or prosecute any alcohol or drug abuse patient.[facility] the event this information is protected by the Federal Confidentiality of Alcohol and Drug Abuse Patient Records regulations: The Federal rules restrict any use of the information to criminally investigate or prosecute any alcohol or drug abuse patient.[facility] the event this information is protected by the Federal Confidentiality of Alcohol and Drug Abuse Patient Records regulations: The Federal rules restrict any use of the information to criminally investigate or prosecute any alcohol or drug abuse patient.[facility] the event this information is protected by the Federal Confidentiality of Alcohol and Drug Abuse Patient Records regulations: The Federal rules restrict any use of the information to criminally investigate or prosecute any alcohol or drug abuse patient.[facility] the event this information is protected by the Federal Confidentiality of Alcohol and Drug Abuse Patient Records regulations: The Federal rules restrict any use of the information to criminally investigate or prosecute any alcohol or drug abuse patient.[facility] the event this information is protected by the Federal Confidentiality of Alcohol and Drug Abuse Patient Records regulations: The Federal rules restrict any use of the information to criminally investigate or prosecute any alcohol or drug abuse patient.[facility] the event this information is protected by the Federal Confidentiality of Alcohol and Drug Abuse Patient Records regulations: The Federal rules restrict any use of the information to criminally investigate or prosecute any alcohol or drug abuse patient.[facility] the event this information is protected by the Federal Confidentiality of Alcohol and Drug Abuse Patient Records regulations: The Federal rules restrict any use of the information to criminally investigate or prosecute any alcohol or drug abuse patient.[facility] the event this information is protected by the Federal Confidentiality of Alcohol and Drug Abuse Patient Records regulations: The Federal rules restrict any use of the information to criminally investigate or prosecute any alcohol or drug abuse patient.[facility] the event this information is protected by the Federal Confidentiality of Alcohol and Drug Abuse Patient Records regulations: The Federal rules restrict any use of the information to criminally investigate or prosecute any alcohol or drug abuse patient.[facility] the event this information is protected by the Federal Confidentiality of Alcohol and Drug Abuse Patient Records regulations: The Federal rules restrict any use of the information to criminally investigate or prosecute any alcohol or drug abuse patient.[facility] the event this information is protected by the Federal Confidentiality of Alcohol and Drug Abuse Patient Records regulations: The Federal rules restrict any use of the information to criminally investigate or prosecute any alcohol or drug abuse patient.[facility] the event this information is protected by the Federal Confidentiality of Alcohol and Drug Abuse Patient Records regulations: The Federal rules restrict any use of the information to criminally investigate or prosecute any alcohol or drug abuse patient.[facility] the event this information is protected by the Federal Confidentiality of Alcohol and Drug Abuse Patient Records regulations: The Federal rules restrict any use of the information to criminally investigate or prosecute any alcohol or drug abuse patient.[facility] the event this information is protected by the Federal Confidentiality of Alcohol and Drug Abuse Patient Records regulations: The Federal rules restrict any use of the information to criminally investigate or prosecute any alcohol or drug abuse patient.[facility]In the event this information is protected by the Federal Confidentiality of Alcohol and Drug Abuse Patient Records regulations: The Federal rules restrict any use of the information to criminally investigate or prosecute any alcohol or drug abuse patient.[facility]ullIn the event this information is protected by the Federal Confidentiality of Alcohol and Drug Abuse Patient Records regulations: The Federal rules restrict any use of the information to criminally investigate or prosecute any alcohol or drug abuse patient.[facility]ullIn the event this information is protected by the Federal Confidentiality of Alcohol and Drug Abuse Patient Records regulations: The Federal rules restrict any use of the information to criminally investigate or prosecute any alcohol or drug abuse patient.[facility]ullIn the event this information is protected by the Federal Confidentiality of Alcohol and Drug Abuse Patient Records regulations: The Federal rules restrict any use of the information to criminally investigate or prosecute any alcohol or drug abuse patient.[facility]ullIn the event this information is protected by the Federal Confidentiality of Alcohol and Drug Abuse Patient Records regulations: The Federal rules restrict any use of the information to criminally investigate or prosecute any alcohol or drug abuse patient.[facility]ullIn the event this information is protected by the Federal Confidentiality of Alcohol and Drug Abuse Patient Records regulations: The Federal rules restrict any use of the information to criminally investigate or prosecute any alcohol or drug abuse patient.[facility]ullIn the event this information is protected by the Federal Confidentiality of Alcohol and Drug Abuse Patient Records regulations: The Federal rules restrict any use of the information to criminally investigate or prosecute any alcohol or drug abuse patient.[facility]ullIn the event this information is protected by the Federal Confidentiality of Alcohol and Drug Abuse Patient Records regulations: The Federal rules restrict any use of the information to criminally investigate or prosecute any alcohol or drug abuse patient.[facility]ullIn the event this information is protected by the Federal Confidentiality of Alcohol and Drug Abuse Patient Records regulations: The Federal rules restrict any use of the information to criminally investigate or prosecute any alcohol or drug abuse patient.[facility]ullIn the event this information is protected by the Federal Confidentiality of Alcohol and Drug Abuse Patient Records regulations: The Federal rules restrict any use of the information to criminally investigate or prosecute any alcohol or drug abuse patient.[facility]ullIn the event this information is protected by the Federal Confidentiality of Alcohol and Drug Abuse Patient Records regulations: The Federal rules restrict any use of the information to criminally investigate or prosecute any alcohol or drug abuse patient.[facility]ullIn the event this information is protected by the Federal Confidentiality of Alcohol and Drug Abuse Patient Records regulations: The Federal rules restrict any use of the information to criminally investigate or prosecute any alcohol or drug abuse patient.[facility]ullIn the event this information is protected by the Federal Confidentiality of Alcohol and Drug Abuse Patient Records regulations: The Federal rules restrict any use of the information to criminally investigate or prosecute any alcohol or drug abuse patient.[facility]ullIn the event this information is protected by the Federal Confidentiality of Alcohol and Drug Abuse Patient Records regulations: The Federal rules restrict any use of the information to criminally investigate or prosecute any alcohol or drug abuse patient.[facility] the event this information is protected by the Federal Confidentiality of Alcohol and Drug Abuse Patient Records regulations: The Federal rules restrict any use of the information to criminally investigate or prosecute any alcohol or drug abuse patient.[facility] the event this information is protected by the Federal Confidentiality of Alcohol and Drug Abuse Patient Records regulations: The Federal rules restrict any use of the information to criminally investigate or prosecute any alcohol or drug abuse patient.[facility] the event this information is protected by the Federal Confidentiality of Alcohol and Drug Abuse Patient Records regulations: The Federal rules restrict any use of the information to criminally investigate or prosecute any alcohol or drug abuse patient.[facility] the event this information is protected by the Federal Confidentiality of Alcohol and Drug Abuse Patient Records regulations: The Federal rules restrict any use of the information to criminally investigate or prosecute any alcohol or drug abuse patient.[facility] the event this information is protected by the Federal Confidentiality of Alcohol and Drug Abuse Patient Records regulations: The Federal rules restrict any use of the information to criminally investigate or prosecute any alcohol or drug abuse patient.[facility] the event this information is protected by the Federal Confidentiality of Alcohol and Drug Abuse Patient Records regulations: The Federal rules restrict any use of the information to criminally investigate or prosecute any alcohol or drug abuse patient.[facility] the event this information is protected by the Federal Confidentiality of Alcohol and Drug Abuse Patient Records regulations: The Federal rules restrict any use of the information to criminally investigate or prosecute any alcohol or drug abuse patient.[facility] the event this information is protected by the Federal Confidentiality of Alcohol and Drug Abuse Patient Records regulations: The Federal rules restrict any use of the information to criminally investigate or prosecute any alcohol or drug abuse patient.[facility] the event this information is protected by the Federal Confidentiality of Alcohol and Drug Abuse Patient Records regulations: The Federal rules restrict any use of the information to criminally investigate or prosecute any alcohol or drug abuse patient.[facility] the event this information is protected by the Federal Confidentiality of Alcohol and Drug Abuse Patient Records regulations: The Federal rules restrict any use of the information to criminally investigate or prosecute any alcohol or drug abuse patient.[facility] the event this information is protected by the Federal Confidentiality of Alcohol and Drug Abuse Patient Records regulations: The Federal rules restrict any use of the information to criminally investigate or prosecute any alcohol or drug abuse patient.[facility] the event this information is protected by the Federal Confidentiality of Alcohol and Drug Abuse Patient Records regulations: The Federal rules restrict any use of the information to criminally investigate or prosecute any alcohol or drug abuse patient.[facility] the event this information is protected by the Federal Confidentiality of Alcohol and Drug Abuse Patient Records regulations: The Federal rules restrict any use of the information to criminally investigate or prosecute any alcohol or drug abuse patient.[facility] the event this information is protected by the Federal Confidentiality of Alcohol and Drug Abuse Patient Records regulations: The Federal rules restrict any use of the information to criminally investigate or prosecute any alcohol or drug abuse patient.[facility] the event this information is protected by the Federal Confidentiality of Alcohol and Drug Abuse Patient Records regulations: The Federal rules restrict any use of the information to criminally investigate or prosecute any alcohol or drug abuse patient.[facility] the event this information is protected by the Federal Confidentiality of Alcohol and Drug Abuse Patient Records regulations: The Federal rules restrict any use of the information to criminally investigate or prosecute any alcohol or drug abuse patient.[facility] the event this information is protected by the Federal Confidentiality of Alcohol and Drug Abuse Patient Records regulations: The Federal rules restrict any use of the information to criminally investigate or prosecute any alcohol or drug abuse patient.[facility] the event this information is protected by the Federal Confidentiality of Alcohol and Drug Abuse Patient Records regulations: The Federal rules restrict any use of the information to criminally investigate or prosecute any alcohol or drug abuse patient.[facility] the event this information is protected by the Federal Confidentiality of Alcohol and Drug Abuse Patient Records regulations: The Federal rules restrict any use of the information to criminally investigate or prosecute any alcohol or drug abuse patient.[facility] the event this information is protected by the Federal Confidentiality of Alcohol and Drug Abuse Patient Records regulations: The Federal rules restrict any use of the information to criminally investigate or prosecute any alcohol or drug abuse patient.[facility] the event this information is protected by the Federal Confidentiality of Alcohol and Drug Abuse Patient Records regulations: The Federal rules restrict any use of the information to criminally investigate or prosecute any alcohol or drug abuse patient.[facility] the event this information is protected by the Federal Confidentiality of Alcohol and Drug Abuse Patient Records regulations: The Federal rules restrict any use of the information to criminally investigate or prosecute any alcohol or drug abuse patient.[facility]In the event this information is protected by the Federal Confidentiality of Alcohol and Drug Abuse Patient Records regulations: The Federal rules restrict any use of the information to criminally investigate or prosecute any alcohol or drug abuse patient.[facility] the event this information is protected by the Federal Confidentiality of Alcohol and Drug Abuse Patient Records regulations: The Federal rules restrict any use of the information to criminally investigate or prosecute any alcohol or drug abuse patient.[facility] the event this information is protected by the Federal Confidentiality of Alcohol and Drug Abuse Patient Records regulations: The Federal rules restrict any use of the information to criminally investigate or prosecute any alcohol or drug abuse patient.[facility] the event this information is protected by the Federal Confidentiality of Alcohol and Drug Abuse Patient Records regulations: The Federal rules restrict any use of the information to criminally investigate or prosecute any alcohol or drug abuse patient.[facility] the event this information is protected by the Federal Confidentiality of Alcohol and Drug Abuse Patient Records regulations: The Federal rules restrict any use of the information to criminally investigate or prosecute any alcohol or drug abuse patient.[facility] the event this information is protected by the Federal Confidentiality of Alcohol and Drug Abuse Patient Records regulations: The Federal rules restrict any use of the information to criminally investigate or prosecute any alcohol or drug abuse patient.[facility] the event this information is protected by the Federal Confidentiality of Alcohol and Drug Abuse Patient Records regulations: The Federal rules restrict any use of the information to criminally investigate or prosecute any alcohol or drug abuse patient.[facility] the event this information is protected by the Federal Confidentiality of Alcohol and Drug Abuse Patient Records regulations: The Federal rules restrict any use of the information to criminally investigate or prosecute any alcohol or drug abuse patient.[facility] the event this information is protected by the Federal Confidentiality of Alcohol and Drug Abuse Patient Records regulations: The Federal rules restrict any use of the information to criminally investigate or prosecute any alcohol or drug abuse patient.[facility] the event this information is protected by the Federal Confidentiality of Alcohol and Drug Abuse Patient Records regulations: The Federal rules restrict any use of the information to criminally investigate or prosecute any alcohol or drug abuse patient.[facility]In the event this information is protected by the Federal Confidentiality of Alcohol and Drug Abuse Patient Records regulations: The Federal rules restrict any use of the information to criminally investigate or prosecute any alcohol or drug abuse patient.[facility]In the event this information is protected by the Federal Confidentiality of Alcohol and Drug Abuse Patient Records regulations: The Federal rules restrict any use of the information to criminally investigate or prosecute any alcohol or drug abuse patient.[facility]In the event this information is protected by the Federal Confidentiality of Alcohol and Drug Abuse Patient Records regulations: The Federal rules restrict any use of the information to criminally investigate or prosecute any alcohol or drug abuse patient.[facility]In the event this information is protected by the Federal Confidentiality of Alcohol and Drug Abuse Patient Records regulations: The Federal rules restrict any use of the information to criminally investigate or prosecute any alcohol or drug abuse patient.[facility]In the event this information is protected by the Federal Confidentiality of Alcohol and Drug Abuse Patient Records regulations: The Federal rules restrict any use of the information to criminally investigate or prosecute any alcohol or drug abuse patient.[facility]In the event this information is protected by the Federal Confidentiality of Alcohol and Drug Abuse Patient Records regulations: The Federal rules restrict any use of the information to criminally investigate or prosecute any alcohol or drug abuse patient.[facility] FOR RECORDS PERTAINING TO PATIENTS WHO ARE [...] BE BASED ON THE PRIMARY CLINICAL RECORDS. [employer] [facility]. provides no warranty or guarantee of the accuracy or completeness of information in this document.
--- NOTE | 2024-08-30 18:40 | ECG_ITS ---
[facility] Test Date: 2024-08-30 Pat Name: SAV RAYMUNDO Department: Room: - Gender: Male Health Commissioner: : [id number] Requested By: 0923 Order Number: [id number] Reading MD: ALEXSANDER ZUÑIGA M.D. Measurements Intervals Coats Rate: 78 P: 53 AK: 194 QRS: 18 QRSD: 86 T: 150 QT: 364 QTc: 397 Interpretive Statements 1100 Sinus rhythm 4068 Nonspecific Twave abnormality 8102 Low QRS voltage in chest leads 9130 borderline ECG Compared to ECG 10/18/2023 19:49:10 Low QRS voltage now present Ventricular premature complex(es) no longer present Electronically Signed On 08-30-2024 19:00:44 EDT by ALEXSANDER ZUÑIGA M.D.
[2024-08-30 19:22] LABS: Basophils Absolute Auto 0.1 10^3/uL (0.0-0.1); Basophils Percent Auto 0.8 % (0.2-2.0); Eosinophils Percent Auto 0.1 % (0.9-7.0); Hemoglobin 12.2 g/dL (14.0-18.0); Immature Granulocytes Abs Auto 0.04 10^3/uL (0.00-0.03); Immature Granulocytes Pct Auto 0.5 % (0.0-0.5); Lymphocytes Absolute Auto 1.2 10^3/uL (1.2-3.8); Lymphocytes Percent Auto 14.2 % (20.5-60.0); Mean Corpuscular HGB Conc 32.1 g/dL (29.9-35.2); Mean Corpuscular Hemoglobin 31.8 pg (25.9-34.0); Mean Platelet Volume 10.1 fL (9.5-13.5); Monocytes Absolute Auto 0.9 10^3/uL (0.3-0.8); Monocytes Percent Auto 10.4 % (1.7-12.0); Neutrophils Absolute Auto 6.2 10^3/uL (1.4-6.5); Platelet Count 251 10^3/uL (150-450); Red Blood Count 3.84 10^6/uL (4.70-6.10); Red Cell Distribution Width 15.3 % (11.0-15.0); White Blood Count 8.4 10^3/uL (4.0-11.0)
--- NOTE | 2024-08-30 19:24 | ED.GENADUL1 ---
HPI HPI - General Adult General Chief complaint: Recheck/Abnormal Lab/Rx Stated complaint: LOW VITALS, DISORIENTED Time Seen by Provider: 08/30/24 18:39 Source: patient Mode of arrival: walk-in Limitations: no limitations History of Present Illness HPI narrative: chronic right pleural effusion for past year. Followed at [facility]. Has drain site in place and is drained daily. Drained tonight by visiting nurses. states he is not himself. Feels weak and shaky. Had labs performed this past week and reportedly abnormal with hypokalemia and evidence of dehydration. Not short of breath. No nausea or abdominal pain. No urinary complaint patient is on Torsemide . Metalazone recently added because of fluid retention Related Data Home Medications ?Medication ?Instructions ?Recorded ?Confirmed allopurinol 300 mg tablet 300 mg PO DAILY 08/15/23 08/30/24 atorvastatin 10 mg tablet 10 mg PO QPM 08/15/23 08/30/24 ascorbic acid (vitamin C) 500 mg 500 mg PO BID 08/30/24 08/30/24 chewable tablet (C-500) aspirin 81 mg tablet,delayed 81 mg PO DAILY 08/30/24 08/30/24 release (Adult Low Dose Aspirin) calcium no.26 167 mg-magnesium 1 cap PO BID 08/30/24 08/30/24 no.15 83 mg-zinc 5 mg capsule (Iaazeeq-Nvmtgrtgw-Qdnt Complex) dextromethorphan-guaifenesin 30 1 tab PO Q12H 08/30/24 08/30/24 mg-600 mg tablet extended [id number] hr (Mucinex DM) loratadine 10 mg tablet (Loradamed) 10 mg PO DAILY 08/30/24 08/30/24 metolazone 5 mg tablet 5 mg PO QDAY 08/30/24 08/30/24 rcgnrnshwycl-tfhmnped-krieen 1 tab PO DAILY 08/30/24 08/30/24 tablet (Milltrium Senior tablet) pantoprazole 40 mg granules 40 mg PO BID 08/30/24 08/30/24 delayed-release for susp in packet (Protonix) potassium chloride 20 mEq 20 meq PO BID 08/30/24 08/30/24 tablet,extended release(part/cryst) quinine sulfate 324 mg capsule 324 mg PO Q12H 03/16/25 03/16/25 torsemide 100 mg tablet 100 mg PO QDAY 08/30/24 08/30/24 Allergies Allergy/AdvReac Type Severity Reaction Status Date / Time tramadol Allergy Severe Hallucinati Verified 08/30/24 18:26 ng Opioid HPI Opioid Management Most Recent Opioid Data: No Data to Display Review of Systems ROS Status of ROS 10 or more systems reviewed and unremarkable except as noted in history and below PFSH PFSH Social History Little interest or pleasure in doing things: not at all Feeling down, depressed, or hopeless: not at all Exam Constitutional Vital Signs, click to edit/add: Last Vital Signs Temp 97.7 F 08/30/24 18:26 Pulse 81 08/30/24 18:26 Resp 20 08/30/24 18:26 BP 104/71 08/30/24 18:26 Pulse Ox 98 08/30/24 18:26 O2 Del Method Room Air 08/30/24 18:26 Common normals: no apparent distress, average body habitus, oriented x3, no limitations, healthy appearing, alert and well nourished [facility] Common normals: normocephalic, head/scalp atraumatic and hearing grossly normal bilaterally Eye Common normals: EOMs intact bilaterally and conjunctivae normal Respiratory Common normals: normal respiratory effort, no retractions, no use of accessory muscles and clear to auscultation bilaterally Cardio Common normals: regular rate, regular rhythm, S1 normal heart sound and S2 normal heart sound GI Common normals: Normal to inspection, nondistended, normoactive bowel sounds present, soft to palpation and non-tender Extremity Common normals: normal to inspection and full ROM Neuro Common normals: oriented x3, CN's II-XII intact bilaterally, moves all extremities and no focal motor deficits Psych Appearance: grossly normal Course Vital Signs Vital signs: Vital Signs Temperature 97.7 F 08/30/24 18:26 Pulse Rate 81 08/30/24 18:26 Respiratory Rate 20 08/30/24 18:26 Blood Pressure 104/71 08/30/24 18:26 Pulse Oximetry 98 08/30/24 18:26 Oxygen Delivery Method Room Air 08/30/24 18:26 Temperature 97.7 F 08/30/24 18:26 Pulse Rate 81 08/30/24 18:26 Respiratory Rate 20 08/30/24 18:26 Blood Pressure 104/71 08/30/24 18:26 Pulse Oximetry 98 08/30/24 18:26 Oxygen Delivery Method Room Air 08/30/24 18:26 Medical Decision Making MDM Narrative Medical decision making narrative: patient presents with dehydration. Recently had metolazone added for fluid retention . He is feeling week. Has chronic right pleural effusion and per the patient and no clear etiology. Followed at [facility] Dr Lorenz called and would like the patient hydrated overnight. Discussed with the hospitalist and will plan obs admission Lab Data Labs: Lab Results 08/30/24 Range/Units 19:16 WBC 8.4 (4.0-11.0) 10^3/uL RBC 3.84 L (4.70-6.10) 10^6/uL Hgb 12.2 L (14.0-18.0) g/dL Hct 38.0 L (42.0-54.0) % MCV 99.0 H (80.0-94.0) fL MCH 31.8 (25.9-34.0) pg MCHC 32.1 (29.9-35.2) g/dL RDW 15.3 H (11.0-15.0) % Plt Count 251 (150-450) 10^3/uL MPV 10.1 (9.5-13.5) fL Neut % (Auto) 74.0 (43.0-75.0) % Lymph % (Auto) 14.2 L (20.5-60.0) % Phillips % (Auto) 10.4 (1.7-12.0) % Eos % (Auto) 0.1 L (0.9-7.0) % Baso % (Auto) 0.8 (0.2-2.0) % Neut # (Auto) 6.2 (1.4-6.5) 10^3/uL Lymph # (Auto) 1.2 (1.2-3.8) 10^3/uL Phillips # (Auto) 0.9 H (0.3-0.8) 10^3/uL Eos # (Auto) 0.0 (0.0-0.7) 10^3/uL Baso # (Auto) 0.1 (0.0-0.1) 10^3/uL Abs Immat Gran (auto) 0.04 H (0.00-0.03) 10^3/uL Imm/Tot Granulo (auto) 0.5 (0.0-0.5) % PT 12.3 H (9.0-11.6) sec INR 1.18 APTT 31.2 (22.3-36.2) sec Sodium 141 (136-145) mmol/L Potassium 3.4 L (3.5-5.1) mmol/L Chloride 97 L (98-107) mmol/L Carbon Dioxide 35.8 H (21.0-32.0) mmol/L Anion Gap 11.6 BUN 53.0 H (7.0-18.0) mg/dL Creatinine 2.14 H (0.70-1.30) mg/dL Est GFR ( Amer) 37 L (>=60 mL/min/1.73m^2) Est GFR (Non-Af Amer) 30 L (>=60 mL/min/1.73m^2) BUN/Creatinine Ratio 24.8 Glucose 121 H (74-106) mg/dL Calcium 9.4 (8.5-10.1) mg/dL Total Bilirubin 0.7 (0.2-1.0) mg/dL AST 25 (15-37) U/L ALT 18 (16-63) U/L Alkaline Phosphatase 143 H (46-116) U/L Troponin I High Sens 10.0 (4.0-76.1) pg/mL NT-Pro-B Natriuret Pep 239.0 (<=900.0) pg/mL Total Protein 8.3 H (6.4-8.2) g/dL Albumin 3.5 (3.4-5.0) g/dL Globulin 4.8 g/dL Albumin/Globulin Ratio 0.7 Discharge Plan Discharge Chief Complaint: Recheck/Abnormal Lab/Rx Clinical Impression: Pleural effusion, right, Dehydration Patient Disposition: Admitted as Observation
[2024-08-30 19:39] LABS: INR 1.18; Partial Thromboplastin Time 31.2 sec (22.3-36.2); Prothrombin Time 12.3 sec (9.0-11.6)
[2024-08-30 19:41] LABS: Alanine Aminotransferase 18 U/L (16-63); Albumin Globulin Ratio 0.7; Albumin Level 3.5 g/dL (3.4-5.0); Alkaline Phosphatase 143 U/L (46-116); Anion Gap 11.6; Aspartate Amino Transferase 25 U/L (15-37); BUN Creatinine Ratio 24.8; Bilirubin Total 0.7 mg/dL (0.2-1.0); Calcium 9.4 mg/dL (8.5-10.1); Carbon Dioxide 35.8 mmol/L (21.0-32.0); Chloride 97 mmol/L (98-107); Estimated GFR (African America 37 (>=60 mL/min/1.73m^2); Estimated GFR (Non-African Ame 30 (>=60 mL/min/1.73m^2); Globulin 4.8 g/dL; Glucose 121 mg/dL (74-106); Potassium 3.4 mmol/L (3.5-5.1); Sodium 141 mmol/L (136-145); Total Protein 8.3 g/dL (6.4-8.2)
[2024-08-30] MEDS: 0.9 % SODIUM CHLORIDE 1,000 ML 100 ML IV (20:32)
[2024-08-30 21:08] LABS: C Reactive Protein 4.85 mg/dL (<=0.50)
[2024-08-30 22:51] LABS: Bilirubin Urine NEGATIVE (NEGATIVE); Blood Urine NEGATIVE (NEGATIVE); Clarity Urine CLEAR (CLEAR); Color Urine LT. YELLOW (YELLOW); Glucose Urine UA NEGATIVE (NEGATIVE); Ketones Urine NEGATIVE (NEGATIVE); Leukocyte Esterase Urine NEGATIVE (NEGATIVE); Nitrite Urine NEGATIVE (NEGATIVE); Protein Urine NEGATIVE (NEG/TRACE); Specific Gravity Urine <=1.005 (1.005-1.025); Urobilinogen Urine 0.2 EU/dL (0.2-1.0); pH Urine 6.5 (5.0-9.0)
[2024-08-30 22:58] LABS: Bacteria Urine NONE SEEN #/HPF (NONE SEEN); Cast Seen? NONE SEEN #/LPF (NONE SEEN); Crystals Seen? None Seen #/HPF (None Seen); Mucus Urine NONE SEEN (NONE SEEN); RBC Urine 0-2 #/HPF (0-2); Squamous Epithelial Cell Urine NONE SEEN #/LPF (NONE/RARE); Urine Culture Indicated NO; WBC Urine NONE SEEN #/HPF (NONE SEEN)
[2024-08-30 23:03] LABS: Influenza Virus A Antigen Negative; Influenza Virus B Antigen Negative; Internal Control Within Normal Limits; SARS-CoV-2 Ag NEGATIVE (NEGATIVE)
[2024-08-30] MEDS: GUAIFENESIN DM 600-30 MG 12 HR TAB 1 TAB PO (23:14)
[2024-08-30] MEDS: ENOXAPARIN SODIUM 30 MG/0.3 ML SYRINGE SUBQ (23:14)
[2024-08-31] VITALS (14 sets, daily range): BP systolic 96–127; BP diastolic 59–75; PULSE 63–89; TEMP 36.4–36.6; O2SAT 92–97
[2024-08-31] MEDS: 0.9 % SODIUM CHLORIDE 1,000 ML 100 ML IV (06:13)
[2024-08-31 06:29] LABS: Basophils Percent Auto 0.6 % (0.2-2.0); Hematocrit 37.9 % (42.0-54.0); Hemoglobin 12.1 g/dL (14.0-18.0); Immature Granulocytes Abs Auto 0.03 10^3/uL (0.00-0.03); Immature Granulocytes Pct Auto 0.5 % (0.0-0.5); Lymphocytes Absolute Auto 1.1 10^3/uL (1.2-3.8); Lymphocytes Percent Auto 17.4 % (20.5-60.0); Mean Corpuscular HGB Conc 31.9 g/dL (29.9-35.2); Mean Corpuscular Hemoglobin 31.2 pg (25.9-34.0); Mean Corpuscular Volume 97.7 fL (80.0-94.0); Mean Platelet Volume 10.2 fL (9.5-13.5); Monocytes Absolute Auto 0.9 10^3/uL (0.3-0.8); Neutrophils Absolute Auto 4.5 10^3/uL (1.4-6.5); Neutrophils Percent Auto 68.5 % (43.0-75.0); Platelet Count 203 10^3/uL (150-450); Red Blood Count 3.88 10^6/uL (4.70-6.10); Red Cell Distribution Width 15.3 % (11.0-15.0); White Blood Count 6.5 10^3/uL (4.0-11.0)
[2024-08-31 06:47] LABS: Alanine Aminotransferase 13 U/L (16-63); Albumin Globulin Ratio 0.8; Albumin Level 3.3 g/dL (3.4-5.0); Alkaline Phosphatase 130 U/L (46-116); Anion Gap 10.1; Aspartate Amino Transferase 25 U/L (15-37); BUN Creatinine Ratio 28.6; Bilirubin Total 0.7 mg/dL (0.2-1.0); Carbon Dioxide 34.5 mmol/L (21.0-32.0); Chloride 101 mmol/L (98-107); Estimated GFR (African America 49 (>=60 mL/min/1.73m^2); Estimated GFR (Non-African Ame 40 (>=60 mL/min/1.73m^2); Globulin 4.4 g/dL; Glucose 113 mg/dL (74-106); Magnesium 2.2 mg/dL (1.8-2.4); Sodium 143 mmol/L (136-145); Total Protein 7.7 g/dL (6.4-8.2)
[2024-08-31 06:51] LABS: Potassium 2.6 mmol/L (3.5-5.1)
--- NOTE | 2024-08-31 09:06 | PM.HP ---
HPI H&P: HPI History of Present Illness Chief complaint: Dehydration Narrative: Patient is a 74 y.o white male with past medical history of idiopathic/recurrent right pleural effusion with Drain that is emptied daily by home health, Gout, HLD, GERD, And edema. He gets all of his care at the [facility]. He was recently started on Metolazone in addition to his Torsemide. He had labs completed last week and was found to have dehydration and hypokalemia and was started on potassium supplement. He presented to the ER last night with weakness and not feeling himself, sleeping more. ER Findings of acute FLOYD with Cr. 2.14 BUN 53, K 2.6, WBC's 6.5, UA was negative. Patient was admitted for acute dehydration, FLOYD, and hypokalemia. Patient received some IVF overnight and Cr has improved to 1.68, K was 2.6 so I replaced with oral and IV potassium awaiting lab redraw. I have held diuretics this morning. He feels better. His is at bedside. He is due for his pleural effusion to be drained today. Discussed with him, hopeful discharge home today after potassium replacement and Home health can come this evening. Opioid HPI Opioid Management Most Recent Pain and Opioid Data: Last Pain Scale 0 08/31/24 12:17 08/31/24 Last Pain Assessment 08/31/24 12:17 Last ORT Total Score 0 08/30/24 21:02 08/30/24 Last ORT Risk Category Low Risk 08/30/24 21:02 08/30/24 Review of Systems ROS Narrative ROS: a complete review of systems were reviewed with patient and are positive as below or listed in History of Chief Complaint. General: no fever, chills, night sweats Head: no headache, trauma, visual changes, nausea or vomiting Skin: no reported rashes, itching or sores Eyes: no blurriness of vision Ears: no reported hearing loss, vertigo, earache, or tinnitus Throat: no sore throat, hoarseness, swelling of neck, or tongue pain Heart: no chest pain Lungs: no shortness of breath or cough GI: no diarrhea or vomiting/nausea Urinary: no urinary urgency, frequency or pain Neuro: no numbness or tingling HEM: no bleeding issues or bruising ENDO: no thyroid problems Psych: no anxiety or depression PFSH PFSH Medical History (Updated 08/31/24 @ 09:12 by Shreya No DO) Gout ?M10.9 - Gout, unspecified (ICD-10) Hyperlipidemia ?E78.5 - Hyperlipidemia, unspecified (ICD-10) Recurrent right pleural effusion ?J90 - Pleural effusion, not elsewhere classified (ICD-10) Right hand fracture ?S62.91XA - Unspecified fracture of right wrist and hand, initial encounter for closed fracture (ICD-10) Lymphocytic colitis ?K52.832 - Lymphocytic colitis (ICD-10) Surgical History Hx of knee surgery ?Z98.890 - Other specified postprocedural states (ICD-10) History of cataract surgery ?Z98.49 - Cataract extraction status, unspecified eye (ICD-10) Family History Grandmother Family history of diabetes mellitus Father Family history of hypertension Family history of myocardial infarction Brother Family history of hypertension Social History Within the past year, how often did you have a drink containing alcohol: never Score interpretation: A score less than 4 is consistent with normal alcohol consumption. Smoking status: Never smoker Non-prescribed substance use: denies use Highest level of school completed/degree received: Bachelor's degree Are you now , , , , never or living with a partner: Little interest or pleasure in doing things: more than half the days Feeling down, depressed, or hopeless: more than half the days Feel stressed/tense/nervous/anxious/difficulty sleeping: to some extent Do you think of yourself as: straight/heterosexual Gender Identity: male Meds Home Medications and Allergies Home Medications ?Medication ?Instructions ?Recorded ?Confirmed ?Type allopurinol 300 mg tablet 300 mg PO DAILY 08/15/23 08/30/24 History atorvastatin 10 mg tablet 10 mg PO QPM 08/15/23 08/30/24 History ascorbic acid (vitamin C) 500 mg 500 mg PO BID 08/30/24 08/30/24 History chewable tablet (C-500) aspirin 81 mg tablet,delayed 81 mg PO DAILY 08/30/24 08/30/24 History release (Adult Low Dose Aspirin) calcium no.26 167 mg-magnesium 1 cap PO BID 08/30/24 08/30/24 History no.15 83 mg-zinc 5 mg capsule (Zmbrkmc-Opzerfmwg-Kamz Complex) dextromethorphan-guaifenesin 30 1 tab PO Q12H 08/30/24 08/30/24 History mg-600 mg tablet extended [id number] hr (Mucinex DM) loratadine 10 mg tablet (Loradamed) 10 mg PO DAILY 08/30/24 08/30/24 History metolazone 5 mg tablet 5 mg PO QDAY 08/30/24 08/30/24 History uwzrhdawybmk-pdcgbzhw-znsfou 1 tab PO DAILY 08/30/24 08/30/24 History tablet (Milltrium Senior tablet) pantoprazole 40 mg granules 40 mg PO BID 08/30/24 08/30/24 History delayed-release for susp in packet (Protonix) potassium chloride 20 mEq 20 meq PO BID 08/30/24 08/30/24 History tablet,extended release(part/cryst) quinine sulfate 324 mg capsule 324 mg PO Q12H 08/30/24 08/30/24 History torsemide 100 mg tablet 100 mg PO QDAY 08/30/24 08/30/24 History Allergies Allergy/AdvReac Type Severity Reaction Status Date / Time tramadol Allergy Severe Hallucinati Verified 08/30/24 18:26 ng Exam Narrative Exam Narrative: General: Patient is alert, and oriented to person, place and time with normal affect, proper hygiene Skin: no visible rashes, or ulcers Head: atraumatic, acephalic Eyes: PERRLA, no nystagmus present, conjunctiva clear, no scleral icterus Heart: Normal rate and rhythm, no murmurs/rubs/gallops Lungs: no audible wheezes, crackles and normal breath sounds all lung esparza Abdomen: Normal audible bowel sounds, no distension, No palpable masses, no organomegaly, no rebound/guarding/ or rigidity Musculoskeletal: no swelling bilateral lower extremities Neuro: CN II-X grossly intact Constitutional Vital Signs, click to edit/add: Last Vital Signs Temp 97.5 F L 08/31/24 08:40 Pulse 75 08/31/24 08:40 Resp 16 08/31/24 08:40 BP 107/67 03/17/25 08:40 Pulse Ox 94 L 08/31/24 08:40 O2 Del Method Room Air 08/31/24 08:40 Results Labs Labs: Short CBC 08/30/24 08/31/24 Range/Units 19:16 06:15 WBC 8.4 6.5 (4.0-11.0) 10^3/uL Hgb 12.2 L 12.1 L (14.0-18.0) g/dL Hct 38.0 L 37.9 L (42.0-54.0) % Plt Count 251 203 (150-450) 10^3/uL BMP 08/30/24 08/31/24 19:16 06:15 Sodium 141 143 Potassium 3.4 L 2.6 L* Chloride 97 L 101 Carbon Dioxide 35.8 H 34.5 H BUN 53.0 H 48.0 H Creatinine 2.14 H 1.68 H Glucose 121 H 113 H Calcium 9.4 9.0 Liver Function 08/30/24 08/31/24 Range/Units 19:16 06:15 Total Bilirubin 0.7 0.7 (0.2-1.0) mg/dL AST 25 25 (15-37) U/L ALT 18 13 L (16-63) U/L Alkaline Phosphatase 143 H 130 H (46-116) U/L Albumin 3.5 3.3 L (3.4-5.0) g/dL Urine 08/30/24 Range/Units 22:15 Urine Color Lt. yellow (YELLOW) Urine Clarity Clear (CLEAR) Urine pH 6.5 (5.0-9.0) Ur Specific [place] <=1.005 A (1.005-1.025) Urine Protein Negative (NEG/TRACE) mg/dL Urine Glucose (UA) Negative (NEGATIVE) mg/dL Assessment and Plan Assessment and Plan (1) FLOYD (acute kidney injury): Assessment and Plan: improved with IVF and holding diuretics this morning. I will stop fluids, Cr was 2.14, down to 1.68, Baseline is 1.07. most likely prerenal from over diuresis (2) Dehydration: Assessment and Plan: IVF overnight, improved this morning. will stop (3) Hypokalemia: Assessment and Plan: 2.6 this morning, Replace with 40meq IV x 1 and orally. Will need oral supplementation at discharge and recheck 3 days (4) Leg edema: Assessment and Plan: holding home diuretics for now. (5) Recurrent right pleural effusion: Assessment and Plan: has pigtail drain, that gets emptied daily (6) Hyperlipidemia: Assessment and Plan: continue statin Qualifiers: Hyperlipidemia type: unspecified Qualified Code(s): E78.5 - Hyperlipidemia, unspecified (7) Gout: Assessment and Plan: no acute attacks, continue allopurinol Qualifiers: Chronicity: chronic Gout etiology: unspecified cause Gout site: unspecified site Presence of tophus: without tophus Qualified Code(s): M1A.9XX0 - Chronic gout, unspecified, without tophus (tophi) Plan patient is a full code Patient is on lovenox for DVt prophylaxis Patient is observation status and is not expected to cross 2 midnights for hospital necessary care. Repeat potassium level today, will be discharged home this afternoon with close follow up
[2024-08-31] MEDS: ALLOPURINOL 300 MG TABLET PO (09:13)
[2024-08-31] MEDS: ENOXAPARIN SODIUM 30 MG/0.3 ML SYRINGE SUBQ (09:14)
[2024-08-31] MEDS: GUAIFENESIN DM 600-30 MG 12 HR TAB 1 TAB PO (09:14)
[2024-08-31] MEDS: CETIRIZINE HCL 10 MG TABLET PO (09:14)
[2024-08-31] MEDS: ASPIRIN 81 MG TABLET.DR PO (09:14)
[2024-08-31] MEDS: POTASSIUM CHLORIDE 10 MEQ ER TABLET 40 MEQ PO (09:16)
[2024-08-31] MEDS: POTASSIUM CHLORIDE 40 MEQ in 0.9 % SODIUM CHLORIDE 250 ML 67.5 MEQ IV (09:20)
--- NOTE | 2024-08-31 10:00 | CM.NOTE ---
Rounds made with Dr. No, discussed lab findings and diagnosis with pt. Pt will discharge to home this afternoon after IV potassium completed and lab recheck. Pt is active with [facility] and will continue this service.
--- NOTE | 2024-08-31 12:04 | SWNOTE1 ---
SW spoke to case management and pt/pt's provided number for [facility] nurse to see if she can come out this evening and drain. RHONDA called nurse Beth from [facility] and she did ask what time, SW did let her know it has to be later this afternoon 3/4ish? She voiced she will just go after hours and do it. SW asked if she would reach out to pt/pt's ? She stated yes.
--- NOTE | 2024-08-31 12:40 | CM.NOTE ---
Medicare Outpatient Observation Notice discussed with pt, pt verbalizes understanding and signs paper. Original given to pt and copy placed on pt's chart.
--- NOTE | 2024-08-31 12:41 | CM.NOTE ---
Medicare Outpatient Observation Notice discussed with pt, pt verbalizes understanding and signs paper. Original given to pt and copy placed on pt's chart. Updated pt that SW spoke with HH (Beth) and she will be calling to establish a time to come to house at discharge.
[2024-08-31 13:42] LABS: Potassium 3.4 mmol/L (3.5-5.1)
--- NOTE | 2024-08-31 14:59 | PM.DS1 ---
DS: Providers Provider Date of admission: 08/30/24 20:55 Primary care physician: Dawit Lorenz DO Attending physician on admission: Shreya No Discharging clinician: Shreya No DS: Diagnosis Discharge Diagnosis (1) FLOYD (acute kidney injury): (2) Dehydration: (3) Hypokalemia: (4) Leg edema: (5) Recurrent right pleural effusion: (6) Hyperlipidemia: Qualifiers: Hyperlipidemia type: unspecified Qualified Code(s): E78.5 - Hyperlipidemia, unspecified (7) Gout: Qualifiers: Gout site: unspecified site Gout etiology: unspecified cause Chronicity: chronic Presence of tophus: without tophus Qualified Code(s): M1A.9XX0 - Chronic gout, unspecified, without tophus (tophi) DS: Summary Hospital Course Hospital Course: After potassium replacement by IV and oral routes, recheck potassium was 3.4. He is to resume Torsemide tomorrow, and hold Metolazone until . Recheck labs and call for appointment with pcp tomorrow. Return to ER with any worsening signs or symptoms. Home health nurse is to come out to drain his pleural effusion this evening. Status at Discharge Functional status at discharge: independent ambulation Overall status at discharge: patient is back to baseline Time Spent with Patient Time attestation: Total time spent providing and/or coordinating discharge services: Time spent: greater than 30 minutes Exam Narrative Exam Narrative: no changes to exam at the time of discharge from admitting H&P dated 08/31/24 Constitutional Vital Signs, click to edit/add: Last Vital Signs Temp 97.8 F 08/31/24 11:18 Pulse 77 08/31/24 14:00 Resp 16 08/31/24 11:18 BP 116/75 08/31/24 11:18 Pulse Ox 97 08/31/24 11:36 O2 Del Method Room Air 08/31/24 11:36 DS: Data Data Completed and Pending Labs on day of discharge: Labs from last 24 hours 08/31/24 08/31/24 08/30/24 13:31 06:15 22:15 WBC 6.5 RBC 3.88 L Hgb 12.1 L Hct 37.9 L MCV 97.7 H MCH 31.2 MCHC 31.9 RDW 15.3 H Plt Count 203 MPV 10.2 Neut % (Auto) 68.5 Lymph % (Auto) 17.4 L [place] % (Auto) 13.0 H Eos % (Auto) 0.0 L Baso % (Auto) 0.6 Neut # (Auto) 4.5 Lymph # (Auto) 1.1 L [place] # (Auto) 0.9 H Eos # (Auto) 0.0 Baso # (Auto) 0.0 Abs Immat Gran (auto) 0.03 Imm/Tot Granulo (auto) 0.5 PT INR APTT Sodium 143 Potassium 3.4 L 2.6 L* Chloride 101 Carbon Dioxide 34.5 H Anion Gap 10.1 BUN 48.0 H Creatinine 1.68 H Est GFR ( Amer) 49 L Est GFR (Non-Af Amer) 40 L BUN/Creatinine Ratio 28.6 Glucose 113 H Calcium 9.0 Magnesium 2.2 Total Bilirubin 0.7 AST 25 ALT 13 L Alkaline Phosphatase 130 H Troponin I High Sens C-Reactive Protein NT-Pro-B Natriuret Pep Total Protein 7.7 Albumin 3.3 L Globulin 4.4 Albumin/Globulin Ratio 0.8 Urine Color Lt. yellow Urine Clarity Clear Urine pH 6.5 Ur Specific [place] <=1.005 A Urine Protein Negative Urine Glucose (UA) Negative Urine Ketones Negative Urine Occult Blood Negative Urine Nitrite Negative Urine Bilirubin Negative Urine Urobilinogen 0.2 Ur Leukocyte Esterase Negative Urine RBC 0-2 Urine WBC None seen Ur Squamous Epith Cells None seen Urine Crystals None seen Urine Bacteria None seen Urine Casts None seen Urine Mucus None seen Ur Culture Indicated? No Influenza Type A Ag Influenza Type B Ag SARS-CoV-2 Ag (CV2AG) 08/30/24 08/30/24 22:10 19:16 WBC 8.4 RBC 3.84 L Hgb 12.2 L Hct 38.0 L MCV 99.0 H MCH 31.8 MCHC 32.1 RDW 15.3 H Plt Count 251 MPV 10.1 Neut % (Auto) 74.0 Lymph % (Auto) 14.2 L [place] % (Auto) 10.4 Eos % (Auto) 0.1 L Baso % (Auto) 0.8 Neut # (Auto) 6.2 Lymph # (Auto) 1.2 [place] # (Auto) 0.9 H Eos # (Auto) 0.0 Baso # (Auto) 0.1 Abs Immat Gran (auto) 0.04 H Imm/Tot Granulo (auto) 0.5 PT 12.3 H INR 1.18 APTT 31.2 Sodium 141 Potassium 3.4 L Chloride 97 L Carbon Dioxide 35.8 H Anion Gap 11.6 BUN 53.0 H Creatinine 2.14 H Est GFR ( Amer) 37 L Est GFR (Non-Af Amer) 30 L BUN/Creatinine Ratio 24.8 Glucose 121 H Calcium 9.4 Magnesium Total Bilirubin 0.7 AST 25 ALT 18 Alkaline Phosphatase 143 H Troponin I High Sens 10.0 C-Reactive Protein 4.85 H NT-Pro-B Natriuret Pep 239.0 Total Protein 8.3 H Albumin 3.5 Globulin 4.8 Albumin/Globulin Ratio 0.7 Urine Color Urine Clarity Urine pH Ur Specific [place] Urine Protein Urine Glucose (UA) Urine Ketones Urine Occult Blood Urine Nitrite Urine Bilirubin Urine Urobilinogen Ur Leukocyte Esterase Urine RBC Urine WBC Ur Squamous Epith Cells Urine Crystals Urine Bacteria Urine Casts Urine Mucus Ur Culture Indicated? Influenza Type A Ag Negative Influenza Type B Ag Negative SARS-CoV-2 Ag (CV2AG) Negative Discharge Plan Discharge Disposition: Home Health Service Discharge Medications: Continued allopurinol 300 mg tablet 300 mg PO DAILY atorvastatin 10 mg tablet 10 mg PO QPM quinine sulfate 324 mg capsule 324 mg PO Q12H pantoprazole [Protonix] [address] for susp in packet 40 mg PO BID torsemide 100 mg tablet 100 mg PO QDAY Fwhrulq-Pfsyoytlj-Tfzq Complex 167 mg calcium- 83 mg-5 mg capsule 1 cap PO BID aspirin [Adult Low Dose Aspirin] 81 mg tablet,delayed release (DR/EC) 81 mg PO DAILY ascorbic acid (vitamin C) [C-500] 500 mg tablet,chewable 500 mg PO BID Milltrium Senior Tablet 1 tab PO DAILY Mucinex DM 30-600 mg tablet extended release 12 hr 1 tab PO Q12H loratadine [Loradamed] 10 mg tablet 10 mg PO DAILY Changed potassium chloride 20 mEq tablet,ER particles/crystals 40 meq PO BID Qty: 0 0RF Held metolazone 5 mg tablet 5 mg PO QDAY Hold Instructions: Resume on 09/03/24. Activity: increase activity as tolerated Diet: advance to your usual diet Print Language: Amharic [employer]/Control Supervisor Instructions: Resume [facility]. Phone number is [phone]. Nurse Beth will contact you to come out and drain this evening. Forms: Portal Instructions Follow Up Appointments: Please make follow up with PCP, call office tomorrow, Will need bmp recheck on 09/03/24
--- NOTE | 2024-08-31 15:10 | CM.NOTE ---
Faxed H&P, Physician notes, vitals, D/C summary, CRF and Med rec to [facility].
--- NOTE | 2024-09-01 14:44 | CM.DCFOLLOWU ---
Person spoke with: Bryan How are you feeling? Much better How is your pain? No pain Did you understand your discharge instructions? Yes Do you have any questions about your discharge instructions? No Were you given any prescriptions at discharge? No Were you able to get your prescriptions filled? N/A Do you understand how to take your medications as ordered? Yes Do you have any questions about your follow up appointment and do you plan to keep your follow up appointment? Scheduled appt today Is there anything else that you would like to discuss? No Questions/Comments/Concerns/Other:
== END 2024-08-31 17:15 | disposition home health service (06) ==
LOC: ER 20:39 → MS 20:57
PROVIDERS: Physician Assistant; Registered Nurse; Admitting Provider Family Medicine; Emergency Provider Internal Medicine; PCP Internal Medicine; Visit Provider Family Medicine
DX: N17.9 Acute kidney failure, unspecified (principal); E86.0 Dehydration; E87.6 Hypokalemia; J90 Pleural effusion, not elsewhere classified; R60.9 Edema, unspecified; M1A.9XX0 Chronic gout, unspecified, without tophus (tophi); E78.5 Hyperlipidemia, unspecified; K21.9 Gastro-esophageal reflux disease without esophagitis; Z88.5 Allergy status to narcotic agent; Z79.82 Long term (current) use of aspirin; Z79.899 Other long term (current) drug therapy
CPT/HCPCS: 36415; 71045; 80053; 81001; 83735; 83880; 84132; 84484; 85025; 85610; 85730; 86140; 87804; 87811; 93005; 94761; 96361; 96365; 96366; 96372; 99285; G0378; J1650; J3480

== ENCOUNTER 2024-11-24 16:41 | Outpatient (OUT) | payer MEDICARE, SELFPAY ==
--- OUTSIDE RECORDS SUMMARY | 2024-01-15 05:00 | XMS_ITS ---
Author Organization The [facility] in [place] Address [address] [place] [address] Care Team Providers Care Street Light Repairer Name Role Phone Kelechi Dawit MATA Primary Care Provider Calin Espino Unavailable [phone] Allergies Allergen (clinical drug ingredient) Drug/Non Drug Allergy documented on EMR Reaction Allergy Type Onset Date Status tramadol Tramadol Hallucinations Drug Allergy Ac tive REASON FOR VISIT 3MO-PLEURAL EFFUSION Medications Medication SIG (Take, Route, Frequency, Duration) Notes Start Date End Date Status MAGnesium-Oxide 400 (240 Mg) MG TAKE 1 TABLET BY MOUTH TWICE DAILY Oral for 30 Days Active guaiFENesin-Codeine 100-10 MG/5ML TAKE 10 ML BY MOUTH EVERY 6 HOURS NEEDED FOR COUGH FOR 7 DAYS Oral for 7 Days Active Potassium Chloride Khloe ER 20 MEQ Oral for 30 Days Active Omeprazole 20 MG Oral for 90 Days Active Albuterol Sulfate HFA 108 (90 Base) MCG/ACT Inhalation for 25 Days Not-Taking Furosemide 40 MG TAKE 1 TABLET BY ONCE DAILY AT 2 PM Oral for 30 Days Active Furosemide 80 MG Oral for 30 Days Active Atorvastatin Calcium 10 MG Oral for 90 Days Active Aspirin 81 MG 1 tablet Orally Once a day Active Calcium 500 MG 1 tablet with meals Orally Twice a day Active Losartan Potassium 25 MG TAKE 1 TABLET B Y MOUTH ONCE DAILY Oral for 30 Days Not-Taking Breztri Aerosphere 160/9/4.8 mcg 2 puffs inhalation BID for 30 Active Allopurinol 300 MG Oral for 90 Days Active Breztri Aerosphere 160/9/4.8 mcg 2 puffs inhalation BID for 30 Not-Taking EQ Space Chamber Anti-Static - for 30 Days Not-Taking Social History Tobacco Use: Social History Observation Description Date Details (start date - stop date) Never Smoker NA - NA Tobacco Use/Smoking Question Answer Notes Patient is a nonsmoker Tobacco Control (Standard) Question Answer Notes Tobacco use: Nonsmoker Vital Signs Weight 214.2 lbs 01/15/2024 Height 72 in 01/15/2024 Blood pressure systolic 122 mm Hg 01/15/20 Blood pressure diastolic 77 mm Hg 024 Temperature 96.0 degrees Fahrenheit 01/15/20 24 Heart Rate 77 /min 01/15/2024 Respiratory Rate 18 /min 01/15/2024 BMI 29.05 kg/m2 01/15/2024 Oximetry 94 % 01/15/2024 Encounters Encounter Location Date Provider Diagnosis Pulmonary Medicine [place] [address] [place] [address] 01/15/2024 Calin Gotti Chronic cough R05.3 ; Pleural effusion J90 ; Multiple pulmonary nodules R91.8 ; Pericardial effusion I31.39 ; Elevated erythrocyte sedimentation rate R70.0 and Calcified lymph nodes I89.8 Assessments Encounter Date Diagnosis (ICD Code) Assessment Notes Treatment Notes Treatment Clinical Notes Section Notes 01/15/2024 Chronic cough (ICD-10 - R05.3) Cough was improving, but then stopped Breztri and the cough returned. He is now saying that Breztri was not as effective for his coughing as I was led to believe. He has tried numerous other medications to suppress the cough. At the point of just treating symptoms rather than finding the underlying cause. Delsym seems to help so I discussed with him he could take it up to 3-4 times a day, monitor for sedation. Discussed considering gabapentin use in the future. 01/15/2024 Pleural effusion (ICD-10 - J90) Chronic right pleural effusion with overall fairly high output. Despite thoracostomy, causes as of yet undetermined. Due to large amount of fluid produced, he now has a Pleurx catheter being drained Saturday. He has seen rheumatology at [facility] and they have not been able to determine a cause. Cytology/patholog y have returned negative for malignancy. I am not of much assistance here at [facility] given our small size. Other thought would be infectious disease. Could also consider checking cytology yet again, but if this really were malignant, overall yield with repeated thoracenteses only approaches roughly 70% of the time for positive diagnosis of malignant effusion. I suggest patient follow-up with [facility] pulmonary for second opinion. Patient states he wishes to see me here locally for any acute needs. Will follow-up with him in 6 months. 01/15/2024 Multiple pulmonary nodules (ICD-10 - R91.8) Small scattered punctated nodules of unclear etiology. Repeat CAT scan did not show any significant change in nodules. 01/15/2024 Pericardial effusion (ICD-10 - I31.39) 01/15/2024 Elevated erythrocyte sedimentation rate (ICD-10 - R70.0) Patient has seen rheumatology. They do not have a connective tissue disease diagnosis as of this time. 01/15/2024 Calcified lymph nodes (ICD-10 - I89.8) Suspicious for old granulomatous disease. NANDO negative. Plan Of Treatment Medication Medication Name Sig Start Date Stop Date Notes Breztri Aerosphere 160/9/4.8 mcg 2 puffs inhalation BID for 30 Treatment Notes Assessment Notes Chronic cough Cough was improving, but then stopped Breztri and the cough returned. He is now saying that Breztri was not as effective for his coughing as I was led to believe. He has tried numerous other medications to suppress the cough. At the point of just treating symptoms rather than finding the underlying cause. Delsym seems to help so I discussed with him he could take it up to 3-4 times a day, monitor for sedation. Discussed considering gabapentin use in the future. Pleural effusion Chronic right pleural effusion with overall fairly high output. Despite thoracostomy, causes as of yet undetermined. Due to large amount of fluid produced, he now has a Pleurx catheter being drained Saturday. He has seen rheumatology at [facility] and they have not been able to determine a cause. Cytology/pathology have returned negative for malignancy. I am not of much assistance here at [facility] given our small size. Other thought would be infectious disease. Could also consider checking cytology yet again, but if this really were malignant, overall yield with repeated thoracenteses only approaches roughly 70% of the time for positive diagnosis of malignant effusion. I suggest patient follow-up with [facility] pulmonary for second opinion. Patient states he wishes to see me here locally for any acute needs. Will follow-up with him in 6 months. Multiple pulmonary nodules Small scattered punctated nodules of unclear etiology. Repeat CAT scan did not show any significant change in nodules. Elevated erythrocyte sedimentation rate Patient has seen rheumatology. They do not have a connective tissue disease diagnosis as of this time. Calcified lymph nodes Suspicious for old granulomatous disease. NANDO negative. Next Appt Details Follow Up: 6 Months, Reason: Pleural effusion Progress Notes * Bryan HARRIS EDOB:[birth year] (73 yo M)Acc No.[id number]:01/15/2024 Follow Up Patient: Bryan DIXON Provider: Shahzad Gotti DO :1950 A ge:73 Y S ex:Male Date:01/15/2024 Address:[address] [place] [address] [facility], [id number] Pcp:Dawit Lorenz, Check In:08:52 AM ESTCheck O ut:09:39 AM EST Subjective: * Chief Complaints: * 3 MO-PLEURAL EFFUSION * HPI: G eneral: 3 MONTH F/U Patient went to [facility]. He had a thoracostomy done on 11/20/2023. Cytology/pathology all returned negative for malignancy. The pleural fluid has not decreased in production; he then required insertion of a Pleurx catheter. Several months later, he continues to have approximately 500 mL of pleural fluid drained on a Saturday basis. He has seen rheumatology there who have not been able to identify a cause. [facility] was attempting to set them up with their own buttonholer; the initial date was 6 months from now, but it has been moved up several months. Every attempt to get a pulmonary function test in the past failed due to issues with fluid accumulation. He voiced he would prefer to get a PFT done here at [facility]. I reviewed multiple records from [facility] today. Patient's main complaint today is to chronic cough. Is the same nature as before he had his initial thoracentesis. It slightly improved after thoracostomy but now is worsening. He has tried multiple medications for this including Breztri, Robitussin AC, Tessalon, and Delsym. Delsym has been the best so far, but he only takes it sparingly. When he was on prednisone in the past, that did seem to help. He states the cough is frustrating as this is affecting his daily life. MA Intake Comments:. Patient presents for a follow-up for Pleural Effusion. Patient recently had a Right Thoracoscopy performed at [facility] by . Patient complains of Chronic Cough with vomiting. Patient states he was seen by [facility] Pulmonary & Rheumatology (). Patient is also under the care of . Patient currently has a drain tube currently placed and is being drained Saturday, Saturday & Fridays. Patient is not currently using any inhaler at this time.. * ROS: G eneral/Constitutional: Fever or sweats d enies. C hange of appetite d iminished. C hills d enies. W eight Change l oss. H EENT: Dry mouth d enies. S ore throat d enies. O ral Ulcers d enies. P ost Nasal Drip D enies. C ongestion D enies. H oarseness?Denies. C ardiovascular: Tachycardia d enies. C hest pain d enies. P alpitations d enies. R espiratory: Chest tightness d enies. P leurisy D enies. D yspnea d enies. C ough R emains chronic multiple times throughout the day. H emoptysis d enies. W heezing d enies. G astrointestinal: Acid Reflux/GERD/Heartburn d enies. D ysphagia d enies. V omiting E xacerbated from coughing. M usculoskeletal: Arthralgias/joint pain D enies. S kin: Easy bruising d enies. R jh d enies. ? N eurologic: Dizziness/Lightheadedness d enies. S eizures d enies. T remor d enies. H ematology: Abnormal Bleeding d enies. P sychiatric: Anxiety d enies. * Active Problem List R70.0 Elevated erythrocyte sedimentation rate Modified On:09/25/2023/U Status:confirmed I25.10 CAD (coronary artery disease) Modified On:09/11/2023/U Status:confirmed J90 Pleural effusion Modified On:09/25/2023U Status:confirmed R91.8 Multiple pulmonary n odules Modified On:09/25/2023U Status:confirmed I89.8 Calcified lymph node s Modified On:09/25/2023U Status:confirmed I31.39 Pericardial effusion Modified On:09/25/2023U Status:confirmed * Medical History: * Surgical History: E GD 1Right TKA 06/25/2016Left TKA 08/23/2014Thoracentesis-09/04/2023 & 10/01/2023 Right Thoracoscopy/PleurX Catheter placement-[facility] 11/20/2023 * Hospitalization/Major Diagno stic Procedure: S welling/Edema-[facility] 12/20/2023 * Family History: B rachana(s): Hypercholesterolemia. F ather: diagnosed with Unspecified heart disease. P aternal Grandfather: diagnosed with Unspecified heart disease. M aternal Grandfather: diagnosed with Unspecified heart disease. 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 D rugs/Alcohol: D rugs H ave you used drugs other than those for medical reasons in the past 12 months? N o D oes the Patient have a History of Drug Abuse in the Past? N o Caffeine I ntake: n one Do you drink alcohol?: Yes, Socially. Do you smoke marijuana?: Denies. * Medications: T akingAllopurinol 300 MG Tablet Oral Aspirin 81 MG Tablet Delayed Release 1 tablet Orally Once a day Atorvastatin Calcium 10 MG Tablet Oral Calcium 500 MG Tablet 1 tablet with meals Orally Twice a day Furosemide 80 MG Tablet Oral Furosemide 40 MG Tablet TAKE 1 TABLET BY MOUTH ONCE DAILY AT 2 PM Oral guaiFENesin-Codeine 100-10 MG/5ML Solution TAKE 10 ML BY MOUTH EVERY 6 HOURS NEEDED FOR COUGH FOR 7 DAYS Oral MAGnesium-Oxide(Magnesium Oxide -Mg Supplement) 400 (240 Mg) MG Tablet TAKE 1 TABLET BY MOUTH TWICE DAILY Oral Omeprazole 20 MG Capsule Delayed Release Oral Potassium Chloride Khloe ER 20 MEQ Tablet Extended Release Oral Taking Allopurinol 300 MG Tablet Oral Taking Aspirin 81 MG Tablet Delayed Release 1 tablet Orally Once a day Taking Atorvastatin Calcium 10 MG Tablet Oral Taking Calcium 500 MG Tablet 1 tablet with meals Orally Twice a day Taking Furosemide 80 MG Tablet Oral Taking Furosemide 40 MG Tablet TAKE 1 TABLET BY MOUTH ONCE DAILY AT 2 PM Oral Taking guaiFENesin-Codeine 100-10 MG/5ML Solution TAKE 10 ML BY MOUTH EVERY 6 HOURS NEEDED FOR COUGH FOR 7 DAYS Oral Taking MAGnesium-Oxide(Magnesium Oxide -Mg Supplement) 400 (240 Mg) MG Tablet TAKE 1 TABLET BY MOUTH TWICE DAILY Oral Taking Omeprazole 20 MG Capsule Delayed Release Oral Taking Potassium Chloride Khloe ER 20 MEQ Tablet Extended Release Oral Not-Taking/PRNAlbuterol Sulfate HFA 108 (90 Base) MCG/ACT Aerosol Solution Inhalation Breztri Aerosphere(Rrhkfdb-Lkorcvkjtpl-Ntysutnpdz) 160/9/4.8 mcg aerosol 2 puffs inhalation BID Breztri Aerosphere(Pfvnipy-Lkqfjhemgxu-Oboaspipzl) 160/9/4.8 mcg aerosol 2 puffs inhalation BID EQ Space Chamber Anti-Static(Spacer/Aero-Holding Chambers) - Device Losartan Potassium 25 MG Tablet TAKE 1 TABLET BY MOUTH ONCE DAILY Oral Medication List reviewed and reconciled with the patientNot-Taking/PRN Albuterol Sulfate HFA 108 (90 Base) MCG/ACT Aerosol Solution Inhalation Not-Taking/PRN Breztri Aerosphere(Purkrwq-Sjppjuanmwu-Sammpnccmy) 160/9/4.8 mcg aerosol 2 puffs inhalation BID Not-Taking/PRN Breztri Aerosphere(Mjkkldx-Ydjfhkbrjpu-Camgutrggq) 160/9/4.8 mcg aerosol 2 puffs inhalation BID Not-Taking/PRN EQ Space Chamber Anti-Static(Spacer/Aero-Holding Chambers) - Device Not-Taking/PRN Losartan Potassium 25 MG Tablet TAKE 1 TABLET BY MOUTH ONCE DAILY Oral Medication List reviewed and reconciled with the patient * Allergies: T ramadol: Hallucinations - Allergyno[Allergies Verified] Objective: * Vitals: W t:214.2lbs, Ht: 72 in, BP:sittin/77mm Hg, Temp:Forehead:96.0F, HR:77/min, RR:18/min, BMI:29.05Index, Oxygen sat %:Room Air:94%, Ht-cm: 182.88 cm, Wt-k.16 kg. * Examination: E xam: GENERAL APPEARANCE: N o significant coughing today. Skin N ormal. Mouth P ink and moist. No oral candidiasis. Oropharynx M allampati Class III. Trachea M idline. Chest R ight Pleurx catheter. Respiratory Normal M ovements, E ffort N ormal. Auscultation D iminished in the bases. Percussion N o dullness. Egophony N o egophony. Cardiac R egular rate and rhythm. Gastrointestinal N ormal. Vascular N o edema. Musculoskeletal N ormal posture. Neurological F ocal, intact. Psychiatric A lert and oriented x3. Frustrated. Mentation/Cognition N ormal. Assessment: * Assessment: 1. P leural effusion - J90 (Primary) 2 . C hronic cough - R05.3 3 . M ultiple pulmonary nodules - R91.8 4 . P ericardial effusion - I31.39 5 . E levated erythrocyte sedimentation rate - R70.0 6 . C alcified lymph nodes - I89.8 Plan: * Treatment: 2. C hronic cough Start Breztri Aerosphere aerosol, 160/9/4.8 mcg, 2 puffs, inhalation, BID, 30, 1 each, Refills 2.? Notes: Cough was improving, but then stopped Breztri and the cough returned. He is now saying that Breztri was not as effective for his coughing as I was led to believe. He has tried numerous other medications to suppress the cough. At the point of just treating symptoms rather than finding the underlying cause. Delsym seems to help so I discussed with him he could take it up to 3-4 times a day, monitor for sedation. Discussed considering gabapentin use in the future. 3. M ultiple pulmonary nodules Notes: Small scattered punctated nodules of unclear etiology. Repeat CAT scan did not show any significant change in nodules. 4. E levated erythrocyte sedimentation rate Notes: Patient has seen rheumatology. They do not have a connective tissue disease diagnosis as of this time. 5. C alcified lymph nodes Notes: Suspicious for old granulomatous disease. NANDO negative. * Procedure Codes: * Preventive Medicine: COVID Vaccination: H as patient had COVID Vaccination? COVID Vaccination Y es 05/10/2021 Immunization Status: P neumovacc p neumovacc -02/03/2018. I nfluenza 1 07/09/2019. Z ostivax 0 08/30/2018. Screenings/Counseling: F ALL RISK SCREENING Fall Risk Assessment: N o falls in the past year Are you afraid of falling? N o T [place]AC[place] ACTION PLAN Exclusion: M edical Reason Non Smoker Type of Medical Reason: N ot indicated F MICHEAL EXCLUSION Reason: P atient Reason refused/declined Type of Patient Reason: D rug declined by patient B [place] ACTION PLAN Above Normal BMI Follow-up D ietary management education, guidance, and counseling * Follow Up: 6 Months (Reason: Pleural effusion) * * Sign off status: Completed Visit Status: C HK (Check Out) true * Provider: Shahzad Gotti DO Date: 0 01/15/2024 Generated for Madeleine rehman/Alfredo/eTransmitting on: 0 11/24/2024 04:47 PM EDT History and Physical Notes * HPI (History of Present Illness) Category Sub-Category Detail Notes Category Not es General Patient present s for a follow-up for Pleural Effusion. Patient recently had a Right Thoracoscopy performed at [facility] by . Patient complains of Chronic Cough with vomiting. Patient states he was seen by [facility] Pulmonary & Rheumatology (). Patient is also under the care of . Patient currently has a drain tube currently placed and is being drained Saturday, Saturday & Fridays. Patient is not currently using any inhaler at this time. Examination Category Sub-Category Detail Notes Category Not es Exam GENERAL APPEARANCE: No significant coughi ng today Skin Normal Mouth [place] and moist. No o ral candidiasis Trachea Midline Chest Right Pleurx cathete r Respiratory Normal Movements, Ef fort Normal Auscultation Diminished in the ba ses Percussion No dullness Egophony No egophony Cardiac Regular rate and rhy thm Gastrointestinal Normal Vascular No edema Musculoskeletal Normal posture Neurological Focal, intact Psychiatric Alert and oriented x 3. Frustrated Mentation/Cognition Normal Oropharynx Mallampati Class III
--- OUTSIDE RECORDS SUMMARY | 2024-01-20 07:32 | XMS_ITS ---
Author Organization The [facility] in [place] Address [address] [place] [address] Care Team Providers Care Quitline Counselor Name Role Phone Dawit Lorenz DO Primary Care Provider Calin Espino [phone] REASON FOR VISIT Willie Encounters Encounter Location Date Provider Diagnosis Pulmonary Medicine [place] [address] [place] [address] 01/20/2024 Calin Gotti Plan Of Treatment No Information Progress Notes * Bryan HARRIS EDOB:[birth year] (73 yo M)Acc No.[id number]:01/20/2024 Patient: Reinaldo DUNLAPBryan :1950 A ge:73 Y S ex:Male Address:[facility] [place], [address] * Addendum: * true * Date: Generated for Printi ng/Fadhirajg/eTransmitting on: 0 11/24/2024 04:48 PM EDT
--- OUTSIDE RECORDS SUMMARY | 2024-07-20 18:00 | XMS_ITS | Encounter Summary ---
Author Organization [facility] Address [address] [place], [place] [address] Care Team Providers Care Confidential Secretary Name Role Phone Jere Sales MD Unavailable [phone] Calin Gotti DO Unavailable [phone] Jose Antonio Meyers MD Primary Care Provider [phone] Source Comments In the event this information is protected by the Federal Confidentiality of Alcohol and Drug AbusePatient Records regulations: The Federal rules restrict any use of the information to criminally investigate or prosecute any alcohol or drug abuse patient.[facility] Reason for Visit * Auth/Cert (Routine) Specialty Diagnoses / Procedures Referred By Contac t Referred To Contact ADMITTING Diagnoses 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] Procedures [facility] INCL FLUOR GDNCE DX W/CELL WASHG SPX BRONCHOSCOPY FLEXIBLE ADULT Admitting [address] [place] [address] Referral ID Status Reason Start Date Expiration Date Visits Re quested Visits Authorized [id number] 1 1 Encounter Details Date Type Department Care Team (Latest Contact Info) Description 07/20/2024 5:00 PM [facility] Hospital Encounter Admitting [address] [address] Bryn Andrea MD [address] [place] [address] 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 Utilities Answer Date Recorded In the past 12 months has th e electric, gas, oil, or water company threatened to shut off services in your home? No 11/21/2023 PHQ-2 Answer Date Recorded Score (Questions 1 & 2) 0 01/15/20 Hunger Vital Sign Answer Date Recorded Within the past 12 months, y ou worried that your food would run out before you got the money to buy more. Never true 11/21/19 24 Within the past 12 months, t he food you bought just didn't last and you didn't have money to get more. Never true 11/21/2023 PRAPARE - Transportation Answer Date Re corded In the past 12 months, has l ack of transportation kept you from medical appointments or from getting medications? No 11/2023 In the past 12 months, has l ack of transportation kept you from meetings, work, or from getting things needed for daily living? No 11/21/2023 Housing Stability Vital Sign Answer Cullen e Recorded In the last 12 months, was t here a time when you were not able to pay the mortgage or rent on time? No 11/21/2023 In the last 12 months, how many places have you lived? 1 11/21/2023 In the last 12 months, was t here a time when you did not have a steady place to sleep or slept in a half-way (including now)? No 11/21/2023 Area Deprivation Index Answer Date Hari rded National Score (1-100), lower number is lower ri 68 12/11/2023 State Score (1-10), lower number is lower risk 5 12/11/2023 Data from: https://www.neighborhoodatlas.[facility]/. Last address used for calculation [address] 12/11/2023 Sex and Gender Information Value Date Recorded Sex Assigned at Not on file Legal Sex Male 12:24 PM EDT Gender Identity Not on file Sexual Orientation Not on file documented as of this encounter Functional Status * Are you deaf or do you have serious difficulty hearing? Answer Date of Assessment Author No 12/26/2023 4:30 PM EDT Orlando Welsh RN * Are you blind or do you have serious difficulty seeing, even when wearing glasses? Answer Date of Assessment Author No 12/26/2023 4:30 PM EDT Orlando Welsh RN * Do you have serious difficulty walking or climbing stairs? Answer Date of Assessment Author No 12/26/2023 4:30 PM EDT Orlando Welsh RN * Do you have difficulty dressing or bathing? Answer Date of Assessment Author No 12/26/2023 4:30 PM EDT Orlando Welsh RN * Because of a physical, mental, or emotional condition, do you have difficulty doing errands alone such as visiting a doctor's office or shopping? Answer Date of Assessment Author No 12/26/2023 4:30 PM EDT Orlando Welsh RN documented as of this encounter Mental Status * Because of a physical, mental, or emotional condition, do you have serious difficulty concentrating, remembering, or making decisions? Answer Entry Date Author No 12/26/2023 4:30 PM EDT Orlando Welsh RN documented in this encounter Procedure Notes * Roseann Rosario MD - 09/08/2024 11:45 AM EDT THORACENTESIS NOTE SERVICE DATE: 09/08/2024 SERVICE TIME: 11:46 AM LOCATION: Outpatient PROCEDURE: Right Thoracentesis with Ultrasound guidance FACSIMILE MACHINE OPERATOR: Roseann London MD REEFER TRUCK DRIVER: Reza Thompson (resident), REFERRING PHYSICIAN/SERVICE Dr. Riggs (pulmonary) PRE - PROCEDURE DIAGNOSIS: Pleural effusion POST PROCEDURE DIAGNOSIS: Pleural effusion INDICATION: Therapeutic SAFE PRACTICE: Informed consent obtained and filed in patient's chart. SAFE PRACTICE Sign in Communication: Completed. Time Out: The procedural team confirmed the Correct Patient, the Correct Procedure, the Correct Site and the Correct Position (if applicable) during the audible time out: Completed. Sign Out Communication: Completed. PROCEDURE START TIME: 1113 IMAGING GUIDANCE: Ultrasound was used. Images were recorded. ULTRASOUND FINDINGS: The Right chest was scanned using ultrasound. A moderate sized effusion was seen. Septations: Absent. Pleural nodules: Absent. Pleural thickening was Absent. ANESTHESIA: Local, using 9ml of 1% Lidocaine. SEDATION: No PROCEDURE DETAIL: After scanning the chest the appropriate site for thoracentesis was marked and was prepped using Chlorhexidine Gluconate Local anesthesia was administered. A standard thoracentesis needle and catheter were advanced into the right fluid collection without any difficulty. Once the fluid collection was found, the catheter was advanced further into the pleural space, the needle was removed, and drainage was initiated using a wall suction method. Once drainage was completed, proceeded with intrapleural injection of Triamcinolone Acetonide 400 mg (10 mL). the catheter was removed and the site was bandaged. FLUID COLOR: Serosanginous TOTAL FLUID REMOVED: 400mL THORACENTESIS PRESSURES: Intrapleural pressures not measured. PROCEDURE END TIME: 1128 PROCEDURE TERMINATED DUE TO: No further drainage IMMEDIATE COMPLICATIONS: None POST PROCEDURE ULTRASOUND: done, with the following findings: Fluid completely drained IMPRESSION: Completed Right thoracentesis with approximately 400 mL of fluid withdrawal. Estimated blood loss: Minimal. Intrapleural injection of Triamcinolone Acetonide 400 mg (10 mL). Instructions not to drain pleurX for 1 week if he can tolerate it. Will follow up with . Reza Thompson MD Internal Medicine PGY-2 STAFF NOTE: I was present for the entire procedure and agree with the documentation above. This service has been performed in part by a resident or fellow in training, under the direction of a teaching physician. Roseann Rosario MD Pager [phone] September 08, 2024 12:45 PM documented in this encounter Plan of Treatment Upcoming Encounters Date Type Department Care Team (Late st Contact Info) Description 12/15/2024 11:15 AM [place] [address] [place] [address] [place] [address] [place] [address] Follow-up 12/16/2024 12:30 PM EDT Office Visit Vascular Surgery [address] [place] [address] Extremity cyanosis [R23.0] 12/16/2024 2:30 PM EDT Office Visit Vascular Surgery [address] [place] [address] Extremity cyanosis [R23.0] 12/16/2024 3:30 PM EDT Office Visit Vascular Surgery [address] [place] [address] Extremity cyanosis [R23.0] 12/22/2024 6:00 PM EDT [facility] Gastroenterology [address] [address] Araseli Wall APRN.LOAN FUNDER [address] [place] [address] Elevated alkaline phosphatase leve 05/21/2025 2:00 PM EST Office Visit Cardiology [address] [place] [address] [place] [address] [facility] [place] [address] 6 month follow up documented as of this encounter Goals Goal Patient Goal Type Associated Problems Recent Progress Patient-Stated? Author Blood Pressure < 130/80 Blood Pressure 120/74( 025 10:15 PM EDT) No Sung Hartley MD documented as of this encounter Procedures Procedure Name Priority Date/Time Associated Diagnosis Comments PROTEIN BFL Routine 07/20/2024 1:30 PM EST Pleural effusion LDH BODY FLUID Routine 07/20/2024 1:30 PM EST Pleural effusion ALBUMIN BFL Routine 07/20/2024 1:30 PM EST Pleural effusion [facility] INCL FLUOR GDNCE DX W/CELL WASHG SPX 07/20/2024 12:00 PM EST Bronchiolar disease documented in this encounter Results * PROTEIN, BODY FLUID (07/20/2024 1:30 PM EST) Protein, Body Fluid 2.2 See Comment g/dL 07/20/2024 6:39 PM EST [facility] Comment: Serous fluids: Effusions are the accumulation of clinically detected fluid in any of the serous cavities. Effusions are further into transudates and exudates, which aid in determining the etiology of the effusion. Transudate: Body fluid total protein measurement < 3.0 g/dL. A ratio of serous fluid total protein to a concurrent serum total protein < 0.5 indicates a transudate. Exudate: Body fluid total protein measurement >= 3.0 g/dL. A ratio of serous fluid total protein to a concurrent serum total protein >= 0.5 indicates an exudate. Reference: 1. CLSI. Analysis of Body Fluids in Clinical Chemistry Approved Guideline. CLSI document C49A. RAJEEV Bui: Clinical Laboratory Standards [place]: 2007. Fluid, Thoracentesis PLEURAL FLUID / Unknown 07/20/2024 1:30 PM EST 07/20/2024 5:01 PM EST us Bryn Andrea MD LABORATORY Final Result [facility] [address] [facility] Desk [place] [id number], * LACTATE DEHYDROGENASE, BODY FLUID (07/20/2024 1:30 PM EST) LD,Body Fluid 167 See Comment U/L 07/20/2024 6:39 PM EST [facility] Comment: Pleural fluids: Pleural fluid lactate dehydrogenase (LDH) measurements may be useful for classifying pleural effusions as exudates. A ratio of pleural fluid LDH to a concurrent serum LDH > 0.6 is suggestive of exudate. Peritoneal fluids: Ascitic fluid LDH measurements may aid in characterizing secondary peritonitis and should be interpreted along with other clinical and laboratory information. Synovial fluids: Synovial fluid LDH measurements may be useful as an inflammatory marker for various arthritic conditions and should be interpreted along with other clinical and laboratory information. Reference: 1. CLSI. Analysis of Body Fluids in Clinical Chemistry Approved Guideline. CLSI document C49A. RAJEEV Bui: Clinical Laboratory Standards [place]: 2007. Reference: 2. Rafael STARK, Fei Doyle. Body fluid analysis: clinical utility and applicability of published studies to guide interpretation of today's laboratory testing in serous fluids. Crit Rev Clin Lab Sci, 2013:50(4,5):107 to 124. Reference: 3. Flaca Najera, Dougie Doyle, [place] STARK. Lactate dehydrogenase activity and its isoenzymes in serum and synovial fluid of patients with rheumatoid arthritis and osteoarthritis. J Rheumatol. 1992:19:529 to 533. Fluid, Thoracentesis PLEURAL FLUID / Unknown 07/20/2024 1:30 PM EST 07/20/2024 5:01 PM EST us Bryn Andrea MD LABORATORY Final Result [facility] [address] [address], [place] * ALBUMIN, BODY FLUID (07/20/2024 1:30 PM EST) Albumin, Body Fluid 1.4 See Comment g/dL 07/20/2024 6:39 PM EST [facility] Comment: Body Fluid Albumin may be used in classifying ascitic fluid into high-gradient or low-gradient fluids as determined by the serum-ascites albumin gradient, which is calculated as (serum albumin) - (ascites albumin). The serum and fluid specimens should be drawn with a minimal intervening time interval to appropriately analyze the gradient. Gradients greater than or equal to 1.1 g/dL are considered high, which reflects a high hydrostatic pressure, commonly caused by: cirrhosis or other processes generating portal hypertension. In samples where gradients are less than 1.1 g/dL, ascites generated from conditions without portal hypertension should be considered. Reference: 1. CLSI. Analysis of Body Fluids in Clinical Chemistry Approved Guideline. CLSI document C49A. RAJEEV Bui: Clinical Laboratory Standards [place]: 2007. 2. Dionicio SERNA. Serum to ascites albumin gradient. UpToDate. 2015. Accessed on September 28, 2015. Body Fluid Type (Albumin) Pleural Cavity, Right 07/20/2024 6:39 PM EST [facility] Comment:recurrent pleual eff usion on right Fluid, Thoracentesis PLEURAL FLUID / Unknown 07/20/2024 1:30 PM EST 07/20/2024 5:01 PM EST us Bryn Andrea MD LABORATORY Final Result [facility] [address] [facility] Desk [address] [place] [address], documented in this encounter Visit Diagnoses Diagnosis Pleural effusion Unspecified pleural effusion documented in this encounter Care Teams Confidential Secretary Relationship Specialty Start [place] [address] [place] [address] PCP - General Family Medicine 12/29/23 Jere Sales MD [address] [address] Referring Gastroenterology 12/05/20 Calin Gotti DO [address] [place] [address] Internal Medicine 10/16/23 documented as of this encounter
--- OUTSIDE RECORDS SUMMARY | 2024-07-21 05:30 | XMS_ITS ---
Author Organization The [facility] in [place] Address [address] [place] [address] Care Team Providers Care Tuck Pointer Name Role Phone Dawit Lorenz DO Primary Care Provider Tasneem fernandez Shila Gottihan Unavailable [phone] Allergies Allergen (clinical drug ingredient) Drug/Non Drug [...] Encounter Location Date Provider Diagnosis Pulmonary Medicine [place] [address] [place] [address] 07/21/2024 Calin Gotti Pleural effusion J90 Assessments [...] able to offer would be referral to [facility] ([place] [place] in [place], [place] for a third opinion. At this [...] able to offer would be referral to [facility] [place] in [place], [place] for a third opinion. At this time, I am not contributing anything additional to his therapy. He will follow-up as needed. Next Appt Details Follow Up: PRN, Reason: Progress Notes * Bryan HARRIS EDOB:[birth year] (74 yo M)Acc No.[id number]:07/21/2024 Follow Up Patient: Bryan DIXON Provider: Shahzad Gotti DO :1950 A ge:74 Y S ex:Male Date:07/21/2024 Address:[address] [place] [address] , [facility], [id number] Pcp:Dawit Lorenz, Check In:08:58 AM ESTCheck O ut:10:10 AM EST Subjective: * Chief Complaints: * 6 MO-PLEURAL EFFUSION * HPI: G eneral: Patient was last seen 01/15/2024. The last communication regarding the patient was from a Dr. Meyers from [facility], a PCP who was coordinating care between [facility] specialists. He expressed concern about vasculitis; the patient was to see [facility] rheumatology. Other than this, we have received no further communications from [facility] regarding the patient's care. Last visit, the patient had a right-sided Pleurx catheter. Cynthia garcía still has the Pleurx catheter in. He is now being seen by Dr. Triston Riggs, pulmonogist @ [facility]. He has seen multiple other pulmonologists @ [facility]. None still have an exact clue for [...] follow-up. Patient is under the care of [facility] Specialist. Patient reports being drained daily by [...] (90 Base) MCG/ACT Aerosol Solution Inhalation Breztri Aerosphere(Otlranw-Xwnqdyyduxe-Bvcavtokpk) 160/9/4.8 mcg aerosol 2 puffs inhalation BID Breztri Aerosphere(Jhcujjj-Bjpiwmcnytt-Batvlxaikv) 160/9/4.8 mcg aerosol 2 puffs inhalation BID EQ Space Chamber Anti-Static(Spacer/Aero-Holding Chambers) - Device Furosemide 80 MG Tablet Oral Losartan Potassium 25 MG Tablet TAKE 1 TABLET BY MOUTH ONCE DAILY Oral Medication List reviewed and reconciled with the patientDiscontinued Albuterol Sulfate HFA 108 (90 Base) MCG/ACT Aerosol Solution Inhalation Discontinued Breztri Aerosphere(Frhkmsl-Wxozsbxspwa-Bjjzpevugk) 160/9/4.8 mcg aerosol 2 puffs inhalation BID Discontinued Breztri Aerosphere(Xohmufd-Tqpebcxjhay-Gocmtrgpik) 160/9/4.8 mcg aerosol 2 puffs inhalation BID [...] Reason: D rug declined by patient B [place] ACTION PLAN Above Normal BMI Follow-up D ietary management education, guidance, and counseling R SV Vaccine-05/27/2024. * Follow Up: P RN * * Sign off status: Completed Visit Status: C HK (Check Out) true * Provider: Shahzad Gotti DO Date: 07/21/2024 Generated for Madeleine rehman/Alfredo/Madelaineitting on: 0 11/24/2024 04:47 PM EDT History and Physical Notes * Examination Category Sub-Category Detail Notes Category Not es Exam GENERAL APPEARANCE: No acute distress Skin Normal Mouth [place] and moist. No o ral candidiasis Trachea [...]
--- OUTSIDE RECORDS SUMMARY | 2024-11-12 13:27 | XMS_ITS | Encounter Summary ---
Author Organization [facility] Address [address] [place] [id number] Care Team Providers [employer] Name Role Phone Jere Sales MD Unavailable [phone] Calin Gotti DO Unavailable [phone] Jose Antonio Meyers MD Primary Care Provider [phone] Source Comments In the event this information is protected by the Federal Confidentiality of Alcohol and Drug AbusePatient Records regulations: The Federal rules restrict any use of the information to criminally investigate or prosecute any alcohol or drug abuse patient.[facility] Reason for Visit * Reason Comments Sent By Pt reports sent by Reinaldo Pemberton for abnormal labs, b/l leg swelling, SOB on exertion. Recent weight gain Encounter Details Date Type Department Care Team (Late st Contact Info) Description 11/12/2024 1:27 PM EDT - 11/12/2024 7:04 PM EDT Emergency [facility] Emergency Department [address] [place] [address] Rafaela Magallanes MD [address] [place] [address] Ems, MD Ed [address] [place] [address] Fluid retention, weight gain, abdominal pain, shakes, called in by MD Discharge Disposition: Home Social History Tobacco Use Types Packs/Day Years Used Date Smoking Tobacco: Never Smokeless Tobacco: Never Alcohol Use Standard Drinks/Week Comments Yes 0 (1 standard drink = 0.6 oz pure alcohol) socially, no drink since 06/2023 [facility] Utilities Answer Date Recorded In [...] place to sleep or slept in a jail (including now)? No 11/21/2023 Area Deprivation Index Answer Date Hari rded National Score (1-100), lower number is lower ri sk 68 12/11/2023 State Score (1-10), lower number is lower risk 5 12/11/2023 Data from: https://www.neighborhoodatlas.medicine.[facility] Last address used for calculation [address] 12/11/2023 Sex and Gender Information Value Date Recorded Sex Assigned at Not on file Legal Sex Male 12:24 PM EDT Gender Identity Not on file Sexual Orientation Not on file documented as of this encounter Last Filed Vital Signs Vital Sign Reading Time Taken Comments Blood Pressure 121/74 11/12/2024 6:00 PM EDT Pulse 82 11/12/2024 6:00 PM EDT Temperature 36.4 C (97.6 F) 11/12/2024 1:18 PM EDT Respiratory Rate 24 11/12/2024 3:30 PM EDT Oxygen Saturation 95% 11/12/2024 6:00 PM EDT Inhaled Oxygen Concentration - - Weight 90.5 kg (199 lb 8.3 oz) 11/12/2024 1:18 P M EDT Height - - Body Mass Index 27.06 10/15/2024 8:44 AM EDT documented in this encounter Functional Status * Are you [...] Author No 12/26/2023 4:30 PM EDT Orlando eWlsh RN documented in this encounter Discharge Instructions * Discharge Instructions* Kyle Rocha DO - 11/12/2024 5:16 PM EDT If any of your symptoms change significantly or worsen before you are able to follow-up, please return to the emergency department. While we have done our best to rule out any medical emergencies today, we only saw you at one pointin time. It is possible that as time goes on, your symptoms and condition may change or evolve, andat any point you feel you need to return to the emergency department, please do not hesitate to do so. Please follow-up with your primary care provider about your visit today, as well as any specialiststhat may have been recommended. Drink plenty of fluids, and to get extra rest the next couple of days, as you see fit. * Attachments The following attachments cannot be sent through Care Everywhere. * Cirrhosis (SLOVAK) documented in this encounter Medications at Time of Discharge quiNINE 324 mg capsuleIndication s:Cramp and spasm Take 1 capsule by mouth twice daily 60 capsule 10/19/2024 potassium chloride (K-TAB) 20 mEq TbERIndications:R ecurrent 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,Hypokalemia 2 tablets by ORAL/FEEDING TUBE route three times a day. 540 tablet 09/04/2024 12/03/2024 ascorbic acid, vitamin C, (VITAMIN C) 500 mg tablet Take 1,000 mg by mouth once daily. multivit-min/ferr ous fumarate (MULTI VITAMIN ORAL) Take 1 tablet by mouth once daily. guaifenesin/dextr omethorphan (MUCINEX DM ORAL) Take by mouth two times a day. loratadine (CLARITIN) 10 mg tablet Take 10 mg by mouth once daily. calcium ulx-cdt-C6-Zn-copyholder -kian 250 mg-40 mg- 125 unit-3.75mg tab Take by mouth. diclofenac (VOLTAREN) 1 % topical gel 01/22/2024 allopurinol (ZYLOPRIM) 300 mg tablet Take 300 mg by mouth once daily. 10/21/2020 atorvastatin (LIPITOR) 10 mg tablet Take 1 tablet by mouth once daily. 10/31/[address] (PROTONIX) 40 mg tablet Take 40 mg by mouth once daily. 11/13/2024 torsemide (DEMADEX) 100 mg tabletIndications :Recurrent 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,Anasarca Take 1 tablet by mouth once daily. 90 tablet 06/12/2024 11/13/2024 amoxicillin (AMOXIL) 500 mg capsule 01/28/2024 11/19/2024 documented as of this encounter Progress Notes * Megan Dumas RT(R) - 11/12/2024 4:18 PM EDT Radiology Service Progress Note PATIENT NAME: Bryan Harris DATE OF SERVICE: November 12, 2024 TIME: 4:18 PM PATIENT IDENTITY VERIFICATION COMPLETED USING TWO (2) IDENTIFIERS: Name and Date of confirmedby patient verbally. FALL SCREENING: Has the patient had 2 falls in the last year or 1 fall with injury or currently using an Ambulatory Assistive Device (Walker, Cane, Wheelchair, Crutches, etc.)? Emergency Room Patient: Screened in ED PATIENT GENDER DATA: Assigned male at PATIENT RELEVANT IMPLANT DATA REVIEWED: Not Applicable PATIENT PRESENTS WITH AN IMPLANTABLE OR ATTACHED PACKAGE SORTER: No RADIOLOGY DEPARTMENT: Ultrasound PERIPHERAL IV DATA: Not applicable SIGNED BY: Megan Dumas RDMS, RVT November 12, 2024 4:18 PM documented in this encounter ED Notes * Lalita Early RN - 11/12/2024 7:03 PM EDT Pt. D/c as ordered Pt .verbalized understanding of all d/c instructions. No further needs noted at this time. * Rafaela Magallanes MD - 11/12/2024 2:39 PM EDT ED Provider Note Patient Name: Bryan Harris : 1950 SERVICE DATE: 11/12/24 History Patient presents with: Sent By Md: Pt reports sent by MD for abnormal labs, b/l leg swelling, SOB on exertion. Recent weight gain Bryan Harris is a 74 year old year old male with PHM of GERD, lymphocytic colitis, and prior pericardial/pleural effusion with pleural drain in place presenting to the ED with reports of worseningabdominal and lower extremity swelling. Reports this has been going on for approximately a year, with the abdominal distention worse in the last month. They were advised to come to the ED at the recommendation of one of his gastroenterology providers. He also reports bilateral lower extremity edemaand cold feet that has been present for at least 6 months, but appears worse as of late. He denies any CP, SOB, or cough. Chart review shows multiple messages with gastroenterology regarding getting a sooner appointment. Recent nephrology visit shows fluctuating renal function labs, and torsemide use. We advise follow-up with gastroenterology or hepatology regarding worsening swelling. Imaging obtained in the last few weeks shows liver nodularity concerning for cirrhosis. Most recentlabs indicate normal LFTs. PAST MEDICAL HISTORY Diagnosis Date ??? GERD (gastroesophageal reflux disease) ??? History of basal cell cancer left shoulder ??? Mixed hyperlipidemia ??? Osteoarthritis of multiple joints ??? Pleural effusion, right s/p Thoracentesis 10/01/23 = 520 cc, 08/201924 625 cc PAST SURGICAL HISTORY Procedure Laterality Date ??? ANESTH OPEN/SURG ARTHRS TOTAL KNEE ARTHROPLASTY Left 08/23/2014 ??? ARTHROSCOPY KNEE DIAGNOSTIC W/WO SYNOVIAL BX SPX Left 2010 ??? ORTHOPEDIC SURGERY HX Right wrist ??? PAST SURGICAL HISTORY OF Left 11/2014 Shoulder -BASAL CELL CARCINOMA EXCISION ??? THORACOSCOPY SURG W PLEURODESIS Right 11/20/2023 Pleural biopsy with mechanical/doxycycline pleurodesis with TPC insertion. ??? TOTAL KNEE REPLACEMENT Right 06/25/2016 FAMILY HISTORY Problem Relation Age of Onset ??? Heart Father ??? Colon Cancer No Family History Social History Tobacco Use ??? Smoking status: Never ??? Smokeless tobacco: Never Vaping Use ??? Vaping status: Never Used Substance and Sexual Activity ??? Alcohol use: Yes Comment: socially, no drink since 06/2023 ??? Drug use: Never ??? Sexual activity: Not on file ALLERGIES Allergen Reactions ??? Tramadol Mental Status Change Review of Systems Physical Exam Vitals [11/12/24 1318] BP Pulse Temp Temp src Resp SpO2 Weight Height 123/83 (!) 93 36.4 ??C (97.6 ??F) Temporal 22 98 % 90.5 kg (199 lb 8.3 oz) -- Physical Exam Vitals reviewed. Constitutional: General: He is not in acute distress. Appearance: He is not ill-appearing, toxic-appearing or diaphoretic. HENT: Mouth/Throat: Mouth: Mucous membranes are moist. Cardiovascular: Rate and Rhythm: Normal rate and regular rhythm. Pulmonary: Effort: Pulmonary effort is normal. Breath sounds: Normal breath sounds. Abdominal: Tenderness: There is no right CVA tenderness or left CVA tenderness. Comments: Mild distention without any focal tenderness. Nontender pleural drain in place to right abdomen. No erythema. Musculoskeletal: Comments: 3+ pitting edema to bilateral lower extremities to the knee, symmetric. Bilateral feet are cool and dry with slight blue discoloration. Bilateral DP pulses palpable. The bilateral feet have nonpainful range of motion, sensation intact, and there compressible. Neurological: Mental Status: He is oriented to person, place, and time. Comments: Motor and sensation intact to both feet. No asterixis Psychiatric: Mood and Affect: Mood normal. Behavior: Behavior normal. Diagnostic Testing ED Labs Ordered and Reviewed COMPREHENSIVE METABOLIC PANEL - Abnormal; Notable for the following components: Result Value Ref Range Albumin 3.8 (*) 3.9 - 4.9 g/dL AST 46 (*) 14 - 40 U/L Glucose 115 (*) 74 - 99 mg/dL BUN 37 (*) 9 - 24 mg/dL Potassium 3.3 (*) 3.7 - 5.1 mmol/L All other components within normal limits COMPLETE BLOOD COUNT AND DIFFERENTIAL - Abnormal; Notable for the following components: RBC 3.82 (*) 4.20 - 6.00 m/uL Hemoglobin 12.3 (*) 13.0 - 17.0 g/dL Hematocrit 37.1 (*) 39.0 - 51.0 % RDW-CV 16.6 (*) 11.5 - 15.0 % Abs Lymph 0.91 (*) 1.00 - 4.00 k/uL Abs Immature Gran 0.16 (*) <0.10 k/uL All other components within normal limits NT PRO BNP - Abnormal; Notable for the following components: NT Pro BNP 465 (*) <125 pg/mL All other components within normal limits HIGH SENSITIVITY TROPONIN T (INITIAL) - Abnormal; Notable for the following components: HELIO High Sensitivity 18 (*) <12 ng/L All other components within normal limits MAGNESIUM - Normal HIGH SENSITIVITY TROPONIN T (SECOND) Procedures ED Course / Clinical Impression Clinical Impressions as of 11/12/24 1730 Cirrhosis of liver without ascites, unspecified hepatic cirrhosis type (HCC) Leg swelling Abdominal pain, unspecified abdominal location Poor perfusion of leg MDM / Disposition / Plan Bryan Harris is a 74 year old year old male with PHM of GERD, lymphocytic colitis, and prior pericardial/pleural effusion presenting to the ED with reports of worsening abdominal and lower extremity swelling. On exam, he is very pleasant and in no acute distress at this time. Hemodynamically stable. Laboratory work obtained from triage is largely unremarkable, without any significant LFT or electrolyte derangements. Kidney function is at his baseline. Troponins are minimally elevated but stable, and he is without complaints of chest pain. His BNP is slightly elevated, but without other signs and symptoms to suggest heart failure as a cause of his swelling. Bilateral DVT ultrasounds were negative. Given his prior workup with nephrology, and liver cirrhosis with small volume ascites on recent imaging, suspect hepatic/oncotic dysfunction as source of his symptoms. He has an appointment with hepatology in several weeks. After several attempts by myself and his outpatient ADRIENNE to move this up, a new referral has been placed for an in person visit, which him and his can attempt to get scheduled at a sooner date. Given he has signs of poor perfusion to his feet, I also provided him a vascular surgery referral. Exam not concerning for ischemic limb. He has been discharged in stable condition with hepatology and vascular surgery follow-up referralsplaced. Him and his are agreeable to the plan as above, and the plan has been communicated to his outpatient provider. History and Record Review External record(s) reviewed: prior outpatient record. Findings from review of outpatient records: See HPI Differential Diagnoses - Lower extremity swelling is more likely for the following reason(s): suggested by H&P - PVD is more likely for the following reason(s): suggested by H&P - Heart failure is less likely for the following reason(s): H&P not suggestive - DVT is less likely for the following reason(s): no evidence on imaging - Cellulitis is less likely for the following reason(s): H&P not suggestive Management Management of the patient was discussed with:PCP Discussion with PCP included: Discussed obtained workup, without any other suggested tests. Deferring to ED recommendations for disposition at this time. Radiology Reports US DVT LOWER BILATERAL Final Result IMPRESSION: Negative study for proximal DVT in the left and right lower extremities. Negative study for calf DVT in the left and right lower extremities. Negative study for superficial thrombophlebitis in the imaged segments of the left and right lower extremities. Information Security: ALONSO Transcribe Date/Time: Nov 12 2024 4:27P Dictated by : TAJ CINTRON MD This examination was interpreted and the report reviewed and electronically signed by: CHANTEL HEIN MD on Nov 12 2024 4:30PM EST XR CHEST 2V FRONTAL/LAT Final Result IMPRESSION: Similar appearance of small right loculated pleural effusion compared to prior. No new radiographic abnormalities. Information Security: PSCOrchestrate Transcribe Date/Time: Nov 12 2024 1:50P Dictated by : YIFAN WOODARD MD This examination was interpreted and the report reviewed and electronically signed by: MERLYN EASTON MD on Nov 12 2024 1:53PM EST Meds Given During Visit ED Medication Administration from 11/12/2024 1309 to 11/12/2024 1904 None SIGNATURE: Kyle Rocha, DO Attending Note Attestation for: [employer] SUPERVISOR/PA I have personally performed a face to face assessment of the patient and??have reviewed the ADRIENNE note. I personally made/approved the management plan and take responsibility for the patient management. I performed a substantive portion of the visit including all aspects of the following. My mittal findings include: 74-year-old gentleman who has been being worked up for longstanding swelling. He is here in the ED today essentially seeking a sooner appointment with hepatology. He scheduled an appointment but is not until December. States his legs are slightly more swollen over the last few days but other than that there are no acute complaints. Review of epic shows he has not had his swollen legs ultr asounded therefore we did order bilateral lower extremity ultrasounds. No other acute issues at this time. Labs are all acceptable with no indication for admission for further workup. We will attemptto move up his follow-up appointment for him by placing a follow-up request order. Patient endorsedto oncoming physician pending final ultrasound else External record(s) reviewed: prior outpatient record. Findings from review of outpatient records: Has an appoint with hepatology in December here seeking sooner appointment Signature: Rafaela Magallanes MD Date: 11/13/2024 Time: 11:55 AM KYLE ROCHA 11/12/24 1827 RAFAELA MAGALLANES 11/13/24 1155 * Lalita Early RN - 11/12/2024 2:30 PM EDT Assumed care of patient at this time. Pt. To the ER after speaking to GI yesterday, d/t generalized edema, dyspnea. I have reviewed the ED Triage information and verify it to be accurate. Plan of care -Monitor Patient's Vital Signs for changes in condition -Monitor patient for changes in pain -Maintain patient safety and privacy -Provide comfort measures -Call light in place Siderails up, bed in locked and low position * Juliano Garcia MD - 11/12/2024 1:14 PM EDT ED TRIAGE PROVIDER NOTE Patient Name: Bryan Harris Service Date: 11/12/24 BRIEF HPI: This is a 74 year old male who presents to the ED with: Hx of GERD, HLD, pericardial effusion/R sided transudative pleural effusion with regular thoracentesis. Having new abdominal and LE swelling with a 10lb weight gain in the last month, acutely worse in the last four days. Also feeling short of breath, orthopneic, lightheaded, tremulous. Sx refractory totorsemide (100mg daily). D/w primary care, advised to present to the ED. BRIEF EXAM: NAD Awake and Alert Non labored breathing Distended, nontender abdomen Bilateral LE pitting edema to the knees INITIAL WORKUP AND DECISION MAKING: Orders Placed This Encounter No orders of the defined types were placed in this encounter. SIGNATURE: Juliano Garcia MD documented in this encounter Miscellaneous Notes * ED Progress Note - Ed Wallis MD - 11/12/2024 5:02 PM EDT ED CONTINUATION OF CARE NOTE Code Status: Prior Assumed care from: Dr. Magallanes Presentation / Findings / Interventions / Plan / Items to Follow Up: Pt with months of edema and swelling. His workup has been reassuring. He is pending discharge. Clinical Impressions as of 11/12/24 2304 Cirrhosis of liver without ascites, unspecified hepatic cirrhosis type (HCC) Leg swelling Abdominal pain, unspecified abdominal location Poor perfusion of leg Medical Decision Making He was discharged. SIGNATURE: Ed Wallis MD PATIENT NAME: Bryan Harris DATE: November 12, 2024 TIME: 5:02 PM PAGER/CONTACT #: documented in this encounter Plan of Treatment Upcoming Encounters Date Type Department Care Team (Late st Contact Info) Description 12/15/2024 11:15 AM EDT [place] [address] [place] [address] [place] [address] [place] [address] Follow-up 12/16/2024 12:30 PM EDT Office Visit Vascular Surgery [address] [place] [address] Extremity cyanosis [R23.0] 12/16/2024 2:30 PM EDT Office Visit Vascular Surgery [address] [facility] [place] [address] Extremity cyanosis [R23.0] 12/16/2024 3:30 PM EDT Office Visit Vascular Surgery [address] [place] [address] Extremity cyanosis [R23.0] 12/22/2024 6:00 PM EDT [facility] Gastroenterology [address] [address] Araseli Wall APRN.[employer]IOR [employer] [address] [place] [address] Elevated alkaline phosphatase leve 05/21/2025 2:00 PM EST Office Visit Cardiology [address] [place] [address] [place] [address] [facility] [place] [address] 6 month follow up documented as of this encounter Goals Goal Patient Goal Type Associated Problems Recent Progress Patient-Stated? Author Blood Pressure < 130/80 Blood Pressure 120/74( 025 10:15 PM EDT) No Merlyn Hartley MD documented as of this encounter Procedures Procedure Name Priority Date/Time Associated Diagnosis Comments HIGH SENSITIVITY TROPONIN T (THIRD) 3 HRS AFTER INITIAL STAT 11/12/2024 5:13 PM EDT US DVT LOWER BILATERAL STAT 4:18 PM EDT HIGH SENSITIVITY TROPONIN T (SECOND) STAT 11/12/2024 3:11 PM EDT XR CHEST 2V FRONTAL/LAT STAT 11/12/2024 1:49 PM EDT MAGNESIUM BLD STAT 11/12/2024 1:30 PM EDT HIGH SENSITIVITY TROPONIN T (INITIAL) STAT 11/12/2024 1:30 PM EDT NT PRO BNP STAT 11/12/2024 1:30 PM EDT COMPREHENSIVE METABOLIC PANEL STAT 11/12/2024 1:30 PM EDT CBC + DIFF STAT 11/12/2024 1:30 PM EDT ECG COMPLETE STAT 11/12/2024 1:24 PM EDT documented in this encounter Results * (ABNORMAL) HIGH SENSITIVITY TROPONIN T (THIRD) 3 HRS AFTER INITIAL (11/12/2024 5:13 PM EDT) HELIO High Sensitivity 16(H) <12 ng/L 11/12/2024 5:40 PM EDT [facility] Blood BLOOD SPECIMEN / Unknown Venipuncture / Unknown 11/12/2024 5:13 PM EDT 11/12/2024 5:17 PM EDT us Juliano Garcia MD LABORATORY Final Result [facility] [address] [facility] [address] [address], [place] * US DVT LOWER BILATERAL (11/12/2024 4:18 PM EDT) Anatomical Region Laterality Modality Leg Ultrasound 11/12/2024 4:18 PM EDT Impressions 11/12/2024 4:33 PM EDT IMPRESSION: Negative study for proximal DVT in the left and right lower extremities. Negative study for calf DVT in the left and right lower extremities. Negative study for superficial thrombophlebitis in the imaged segments of the left and right lower extremities. Information Security: PSCB Transcribe Date/Time: Nov 12 2024 4:27P Dictated by : TAJ CINTRON MD This examination was interpreted and the report reviewed and electronically signed by: CHANTEL HEIN MD on Nov 12 2024 4:30PM EST Narrative 11/12/2024 4:33 PM EDT * * *Final Report* * * DATE OF EXAM: Nov 12 2024 4:18PM MEU 1005 - US DVT LOWER ROCIO / PROCEDURE REASON: Leg deep vein thrombosis (DVT) suspected * * * * Physician Interpretation * * * * EXAMINATION: RIGHT AND LEFT LOWER EXTREMITY DEEP VENOUS ULTRASOUND WITH DOPPLER IMAGING CLINICAL HISTORY: Lower extremity swelling TECHNIQUE: Grayscale with compression maneuvers, color Doppler and spectral Doppler imaging of the right and left proximal deep veins was performed. Grayscale with compression maneuvers of the right and left peroneal and posterior tibial veins was performed. The right and left great and small saphenous veins were evaluated at their insertion to the deep system. Images were obtained and stored in a permanent archive. MQ: [email or web address]_1 COMPARISON: None RESULT: RIGHT LOWER EXTREMITY PROXIMAL DEEP VEINS Distal External Iliac, Common Femoral and Proximal Profunda Veins: Compression: Normal Doppler: Normal, spontaneous respirophasic flow. Normal response to augmentation. Femoral vein: Compression: Normal Doppler: Normal, spontaneous respirophasic flow. Normal response to augmentation. Popliteal vein: Compression: Normal Doppler: Normal, spontaneous respirophasic flow. Normal response to augmentation. CALF DEEP VEINS Peroneal veins: Normal compression. Posterior tibial veins: Normal compression. Gastrocnemius and Soleal veins: Not imaged. SUPERFICIAL VEINS Great saphenous: Patent and compressible at insertion into common femoral vein; not otherwise assessed. Small Saphenous: Patent and compressible in the proximal calf, not otherwise assessed. LEFT LOWER EXTREMITY PROXIMAL DEEP VEINS Distal External Iliac, Common Femoral and Proximal Profunda Veins: Compression: Normal Doppler: Normal, spontaneous respirophasic flow. Normal response to augmentation. Femoral vein: Compression: Normal Doppler: Normal, spontaneous respirophasic flow. Normal response to augmentation. Popliteal vein: Compression: Normal Doppler: Normal, spontaneous respirophasic flow. Normal response to augmentation. CALF DEEP VEINS Peroneal veins: Normal compression. Posterior tibial veins: Normal compression. Gastrocnemius and Soleal veins: Not imaged. SUPERFICIAL VEINS Great saphenous: Patent and compressible at insertion into common femoral vein; not otherwise assessed. Small Saphenous: Patent and compressible in the proximal calf, not otherwise assessed. Procedure Note Provider, [facility] - 11/12/2024 * * *Final Report* * * DATE OF EXAM: Nov 12 2024 4:18PM MIU 1005 - US DVT LOWER ROCIO / PROCEDURE REASON: Leg deep vein thrombosis (DVT) suspected * * * * Physician Interpretation * * * * EXAMINATION: RIGHT AND LEFT LOWER EXTREMITY DEEP VENOUS ULTRASOUND WITH DOPPLER IMAGING CLINICAL HISTORY: Lower extremity swelling TECHNIQUE: Grayscale with compression maneuvers, color Doppler and spectral Doppler imaging of the right and left proximal deep veins was performed. Grayscale with compression maneuvers of the right and left peroneal and posterior tibial veins was performed. The right and left great and small saphenous veins were evaluated at their insertion to the deep system. Images were obtained and stored in a permanent archive. MQ: [email or web address]_1 COMPARISON: None RESULT: RIGHT LOWER EXTREMITY PROXIMAL DEEP VEINS Distal External Iliac, Common Femoral and Proximal Profunda Veins: Compression: Normal Doppler: Normal, spontaneous respirophasic flow. Normal response to augmentation. Femoral vein: Compression: Normal Doppler: Normal, spontaneous respirophasic flow. Normal response to augmentation. Popliteal vein: Compression: Normal Doppler: Normal, spontaneous respirophasic flow. Normal response to augmentation. CALF DEEP VEINS Peroneal veins: Normal compression. Posterior tibial veins: Normal compression. Gastrocnemius and Soleal veins: Not imaged. SUPERFICIAL VEINS Great saphenous: Patent and compressible at insertion into common femoral vein; not otherwise assessed. Small Saphenous: Patent and compressible in the proximal calf, not otherwise assessed. LEFT LOWER EXTREMITY PROXIMAL DEEP VEINS Distal External Iliac, Common Femoral and Proximal Profunda Veins: Compression: Normal Doppler: Normal, spontaneous respirophasic flow. Normal response to augmentation. Femoral vein: Compression: Normal Doppler: Normal, spontaneous respirophasic flow. Normal response to augmentation. Popliteal vein: Compression: Normal Doppler: Normal, spontaneous respirophasic flow. Normal response to augmentation. CALF DEEP VEINS Peroneal veins: Normal compression. Posterior tibial veins: Normal compression. Gastrocnemius and Soleal veins: Not imaged. SUPERFICIAL VEINS Great saphenous: Patent and compressible at insertion into common femoral vein; not otherwise assessed. Small Saphenous: Patent and compressible in the proximal calf, not otherwise assessed. IMPRESSION IMPRESSION: Negative study for proximal DVT in the left and right lower extremities. Negative study for calf DVT in the left and right lower extremities. Negative study for superficial thrombophlebitis in the imaged segments of the left and right lower extremities. Information Security: ALONSO Transcribe Date/Time: Nov 12 2024 4:27P Dictated by : TAJ CINTRON MD This examination was interpreted and the report reviewed and electronically signed by: CHANTEL HEIN MD on Nov 12 2024 4:30PM EST Rafaela Magallanes MD US-PAMA Final Result * (ABNORMAL) HIGH SENSITIVITY TROPONIN T (SECOND) (11/12/2024 3:11 PM EDT) HELIO High Sensitivity 17(H) <12 ng/L 11/12/2024 3:45 PM EDT [facility] Blood BLOOD SPECIMEN / Unknown Venipuncture / Unknown 11/12/2024 3:11 PM EDT 11/12/2024 3:15 PM EDT Juliano Garcia MD LABORATORY Final Result [facility] [address] [facility] [address] [place] [address], [place] * XR CHEST 2V FRONTAL/LAT (11/12/2024 1:49 PM EDT) Anatomical Region Laterality Modality Chest Radiographic Cece ging 11/12/2024 1:49 PM EDT Impressions 11/12/2024 1:55 PM EDT IMPRESSION: Similar appearance of small right loculated pleural effusion compared to prior. No new radiographic abnormalities. Information Security: PSCB Transcribe Date/Time: Nov 12 2024 1:50P Dictated by : YIFAN WOODARD MD This examination was interpreted and the report reviewed and electronically signed by: MERLYN EASTON MD on Nov 12 2024 1:53PM EST Narrative 11/12/2024 1:55 PM EDT * * *Final Report* * * DATE OF EXAM: Nov 12 2024 1:49PM [id number] - XR CHEST 2V FRONTAL/LAT / PROCEDURE REASON: Shortness of breath * * * * Physician Interpretation * * * * EXAMINATION: CHEST RADIOGRAPH (2 VIEW FRONTAL & LATERAL) CLINICAL HISTORY: Shortness of breath MQ: XC2_6 EXAM DATE/TIME: 11/12/2024 1:49 PM COMPARISON: Chest radiograph 10/13/2024 RESULT: Lines, tubes, and devices: Unchanged right-sided chest tube. Lungs and pleura: Small loculated small loculated right pleural effusion, grossly unchanged from prior. No left-sided pleural effusion. No focal consolidation. No pneumothorax. Cardiomediastinal silhouette: Normal cardiomediastinal silhouette. Bones and soft tissues: Mild degenerative changes of the spine. Procedure Note Provider, [facility] [place] - 11/12/2024 * * *Final Report* * * DATE OF EXAM: Nov 12 2024 1:49PM [id number] - XR CHEST 2V FRONTAL/LAT / PROCEDURE REASON: Shortness of breath * * * * Physician Interpretation * * * * EXAMINATION: CHEST RADIOGRAPH (2 VIEW FRONTAL & LATERAL) CLINICAL HISTORY: Shortness of breath MQ: XC2_6 EXAM DATE/TIME: 11/12/2024 1:49 PM COMPARISON: Chest radiograph 10/13/2024 RESULT: Lines, tubes, and devices: Unchanged right-sided chest tube. Lungs and pleura: Small loculated small loculated right pleural effusion, grossly unchanged from prior. No left-sided pleural effusion. No focal consolidation. No pneumothorax. Cardiomediastinal silhouette: Normal cardiomediastinal silhouette. Bones and soft tissues: Mild degenerative changes of the spine. IMPRESSION IMPRESSION: Similar appearance of small right loculated pleural effusion compared to prior. No new radiographic abnormalities. Information Security: PSCB Transcribe Date/Time: Nov 12 2024 1:50P Dictated by : YIFAN WOODARD MD This examination was interpreted and the report reviewed and electronically signed by: MERLYN EASTON MD on Nov 12 2024 1:53PM EST Juliano Garcia MD RAD-PAMA Final Result * (ABNORMAL) HIGH SENSITIVITY TROPONIN T (INITIAL) (11/12/2024 1:30 PM EDT) HELIO High Sensitivity 18(H) <12 ng/L 11/12/2024 2:04 PM EDT [facility] Blood BLOOD SPECIMEN / Unknown Venipuncture / Unknown 11/12/2024 1:30 PM EDT 11/12/2024 1:34 PM EDT Juliano Garcia MD LABORATORY Final Result [facility] [address] [address], [place] * (ABNORMAL) NT PRO BNP (11/12/2024 1:30 PM EDT) [facility] NT Pro BNP 465(H) <125 pg/mL 11/12/2024 2:04 PM EDT [facility] Blood BLOOD SPECIMEN / Unknown Venipuncture / Unknown 11/12/2024 1:30 PM EDT 11/12/2024 1:34 PM EDT us Juliano Garcia MD LABORATORY Final Result [facility] [address] [place] [id number], [place] * (ABNORMAL) COMPLETE BLOOD COUNT AND DIFFERENTIAL (11/12/2024 1:30 PM EDT) [facility] WBC 8.79 3.70 - 11.00 k/uL 11/12/2024 1:39 PM EDT [facility] RBC 3.82(L) 4.20 - 6.00 m/uL 11/12/2024 1:39 PM EDT [facility] Hemoglobin 12.3(L) 13.0 - 17.0 g/dL 11/12/2024 1:39 PM EDT [facility] Hematocrit 37.1(L) 39.0 - 51.0 % 11/12/2024 1:39 PM EDT [facility] MCV 97.1 80.0 - 100.0 fL 11/12/2024 1:39 PM EDT [facility] MCH 32.2 26.0 - 34.0 pg 11/12/2024 1:39 PM EDT [facility] MCHC 33.2 30.5 - 36.0 g/dL 11/12/2024 1:39 PM EDT [facility] RDW-CV 16.6(H) 11.5 - 15.0 % 11/12/2024 1:39 PM EDT [facility] Platelet Count 189 150 - 400 k/uL 11/12/2024 1:39 PM EDT [facility] MPV 10.0 9.0 - 12.7 fL 11/12/2024 1:39 PM EDT [facility] Neutrophils % 80.0 % 11/12/2024 1:39 PM EDT [facility] Abs Neut 7.03 1.45 - 7.50 k/uL 11/12/2024 1:39 PM EDT [facility] Lymphocytes % 10.4 % 11/12/2024 1:39 PM EDT [facility] Abs Lymph 0.91(L) 1.00 - 4.00 k/uL 11/12/2024 1:39 PM EDT [facility] Monocytes % 7.6 % 11/12/2024 1:39 PM EDT [facility] Abs Alger 0.67 <0.87 k/uL 11/12/2024 1:39 PM EDT [facility] Eosinophils % 0.0 % 11/12/2024 1:39 PM EDT [facility] Abs Eosin <0.03 <0.46 k/uL 11/12/2024 1:39 PM EDT [facility] Basophils % 0.2 % 11/12/2024 1:39 PM EDT [facility] Abs Baso <0.03 <0.11 k/uL 11/12/2024 1:39 PM EDT [facility] Immature Granulocytes % 1.8 % 11/12/2024 1:39 PM EDT [facility] Abs Immature Gran 0.16(H) <0.10 k/uL 025 1:39 PM EDT [facility] NRBC 0.0 /100 WBC 11/12/2024 1:39 PM EDT [facility] Absolute nRBC <0.01 <0.01 k/uL 11/12/2024 1:39 PM EDT [facility] Diff Type Auto 11/12/2024 1:39 PM EDT [facility] Blood BLOOD SPECIMEN / Unknown Venipuncture / Unknown 11/12/2024 1:30 PM EDT 11/12/2024 1:34 PM EDT Juliano Garcia MD LABORATORY Final Result Performing Organization Address City/[facility]/ZIP Co de Phone Number [facility] [address] [place] [address], [place] * MAGNESIUM (11/12/2024 1:30 PM EDT) Pathologist [facility] Magnesium 2.1 1.7 - 2.3 mg/dL 11/12/2024 2:04 PM EDT [facility] Blood BLOOD SPECIMEN / Unknown Venipuncture / Unknown 11/12/2024 1:30 PM EDT 11/12/2024 1:34 PM EDT Juliano Garcia MD LABORATORY Final Result Performing Organization Address [facility] Co de Phone Number [facility] [address] [place] [address], [place] * (ABNORMAL) COMPREHENSIVE METABOLIC PANEL (11/12/2024 1:30 PM EDT) Pathologist [facility] Protein, Total 6.7 6.3 - 8.0 g/dL 11/12/2024 2:04 PM EDT [facility] Albumin 3.8(L) 3.9 - 4.9 g/dL 11/12/2024 2:04 PM EDT [facility] Calcium, Total 8.8 8.5 - 10.2 mg/dL 11/12/2024 2:04 PM EDT [facility] Bilirubin, Total 0.7 0.2 - 1.3 mg/dL 11/12/2024 2:04 PM EDT [facility] Alkaline Phosphatase 108 38 - 113 U/L 11/12/2024 2:04 PM EDT [facility] AST 46(H) 14 - 40 U/L 11/12/2024 2:04 PM EDT [facility] ALT 40 10 - 54 U/L 11/12/2024 2:04 PM EDT [facility] Glucose 115(H) 74 - 99 mg/dL 11/12/2024 2:04 PM [facility] Comment: The [place] [employer] Association (ADA) provides guidance for cutoff [...] Standards of Medical Care in Diabetes 2016, [place] [employer]. Diabetes Care. 2016.39(Suppl 1). BUN 37(H) 9 - 24 mg/dL 11/12/2024 2:04 PM [facility] Creatinine 1.12 0.73 - 1.22 mg/dL 11/12/2024 2:04 PM [facility] Sodium 141 136 - 144 mmol/L 11/12/2024 2:04 PM [facility] Potassium 3.3(L) 3.7 - 5.1 mmol/L 11/12/2024 2:04 PM [facility] Chloride 103 98 - 107 mmol/L 11/12/2024 2:04 PM [facility] CO2 23 22 - 30 mmol/L 11/12/2024 2:04 PM [facility] Anion Gap 15 8 - 15 mmol/L 11/12/2024 2:04 PM [facility] Estimated Glomerular Filtration Rate 69 >=60 mL/min/1.7 3m 11/12/2024 2:04 PM [facility] Comment:Estimated Glomerular Filtration Rate (eGFR) is calculated using the 2020 CKD-EPI creatinine equation. This equation utilizes serum creatinine, sex, and age as parameters. The creatinine assay has traceable calibration to isotope dilution- mass spectrometry. Refer to KDIGO guidelines for clinical interpretation. In patients with unstable renal function, e.g. those with acute kidney injury, the eGFR may not accurately reflect actual GFR. Blood BLOOD SPECIMEN / Unknown Venipuncture / Unknown 11/12/2024 1:30 PM EDT 11/12/2024 1:34 PM EDT us Juliano Garcia MD LABORATORY Final Result Performing Organization Address City/[facility] Co de Phone Number [facility] [address] [facility] [address] [place] [address], * ECG COMPLETE (11/12/2024 1:24 PM EDT) Ventricular Rate 88 BPM [facility] Atrial Rate 88 BPM [facility] P-R Interval 176 ms [facility] QRS Duration 80 ms [facility] QT Interval 354 ms [facility] QTC Calculation (Bazett) 428 ms [facility] Calculated P [place] 8 degrees [facility] Calculated R [place] 3 degrees [facility] Calculated T [place] 246 degrees [facility] 11/12/2024 1:24 PM EDT Impressions [facility] - 11/22/2024 12:19 PM EDT SINUS RHYTHM WITH OCCASIONAL PREMATURE VENTRICULAR COMPLEXES NONSPECIFIC T WAVE ABNORMALITY ABNORMAL ECG Confirmed by JULIANO AGRCIA ([id number]), scientific editor ANA PORTILLO ([id number]) on 11/22/2024 12:18:59 PM Narrative [facility] - 11/22/2024 12:19 PM EDT NAME : BRYAN HARRIS PID : [id number] : 1950 Gender : Male Race : ORD : [id number] Procedure Date : Nov 12 2024 13:24:15 Edit Date : Nov 22 2024 12:19:03 Diagnosis: SINUS RHYTHM WITH OCCASIONAL PREMATURE VENTRICULAR COMPLEXES NONSPECIFIC T WAVE ABNORMALITY ABNORMAL ECG Confirmed by JULIANO GARCIA ([id number]), scientific editor ANA PORTILLO ([id number]) on 11/22/2024 12:18:59 PM Test Reason : Chest Pain Location : 2 : EDNS 003 Overread By : JULIANO GARCIA Edited By : ANA PORTILLO Referred By : , Acquired by : , us Juliano Garcia MD EKG Final Result [facility] [address] [place] [address] documented in this encounter Visit Diagnoses Diagnosis Cirrhosis of liver without ascites, unspecified hepatic cirrhosis type (HCC)- Primary Leg swelling Swelling of limb Abdominal pain, unspecified abdominal location Poor perfusion of leg Peripheral vascular disease, unspecified documented in this encounter Care Teams [employer] Relationship Specialty [place] [address] [place] [address] PCP - General Family Medicine 12/29/23 Jere Sales MD [address] [address] Referring Gastroenterology 12/05/20 Calin Gotti DO [address] [place] [address] Internal Medicine 10/16/23 documented as of this encounter
--- OUTSIDE RECORDS SUMMARY | 2024-11-13 13:00 | XMS_ITS | Encounter Summary ---
Author Organization [facility] Address [address] [place] [address] Care Team Providers Care Bd Special Education Teacher Name Role Phone Jere Sales MD Unavailable [phone] Calin Gotti DO Unavailable [phone] Jose Antonio Meyers MD Primary Care Provider [phone] Source Comments In the event this information is protected by the Federal Confidentiality of Alcohol and Drug AbusePatient Records regulations: The Federal rules restrict any use of the information to criminally investigate or prosecute any alcohol or drug abuse patient.[facility] Reason for Referral * Diagnostic Procedure Only (Routine) - Closed Specialty Diagnoses / Procedures Referred By Contac t Referred To Contact US IMAGING Diagnoses Hepatomegaly Procedures US ELASTOGRAPHY LIVER ULTRASOUND ELASTOGRAPHY [place] [address] [place] [address] Phone: tel: fax: [place] [address] Referral ID Status Reason Start Date Expiration Date V isits Requested Visits Authorized [id number] Closed Auto-Generate d Referral 11/13/2024 12/13/2025 1 1 * Diagnostic Procedure Only (Routine) - Closed Specialty Diagnoses / Procedures Referred By Contac t Referred To Contact US IMAGING Diagnoses Hepatomegaly Procedures US ABD RIGHT UPPER QUADRANT US ABDOMINAL REAL TIME W/[place] [address] [place] [address] Phone: tel: fax: [place] [address] Referral ID Status Reason Start Date Expiration Date V isits Requested Visits Authorized [id number] Closed Auto-Generate d Referral 11/13/2024 12/13/2025 1 1 Reason for Visit * Reason Comments Follow Up Encounter Details Date Type Department Care Team (Late st Contact Info) Description 11/13/2024 1:00 PM EDT [place] [address] [place] [address] [place] [address] [place], [place] [id number] Anasarca (Primary Dx); Recurrent 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; Hepatomegaly; Hiatal hernia; Chronic gastritis without bleeding, unspecified gastritis type; Hypomagnesemia Social History Tobacco Use Types Packs/Day Years Used Date Smoking Tobacco: Never Smokeless Tobacco: Never Tobacco Cessation:Counseling Given: Not Answered Alcohol Use Standard Drinks/Week Comments Yes 0 (1 standard drink = 0.6 oz pure alcohol) socially, no drink since 06/2023 [facility] Utilities Answer Date Recorded In the past 12 months has [employer], gas, oil, or water [employer] threatened to shut off services in your [...] place to sleep or slept in a custodial (including now)? No 11/21/2023 Area Deprivation Index Answer Date Hari rded National Score (1-100), lower number is lower ri sk 68 12/11/2023 State Score (1-10), lower number is lower risk 5 12/11/2023 Data from: https://www.neighborhoodatlas.medicine.[facility].edu/. Last address used for calculation 2230 12/11/2023 Sex and Gender Information Value Date Recorded Sex Assigned at Not on file Legal Sex Male 12:24 PM EDT Gender Identity Not on file Sexual Orientation Not on file documented as of this encounter Last Filed Vital Signs Vital Sign Reading Time Taken Comments Blood Pressure 125/75 11/13/2024 1:02 PM EDT Pulse 81 11/13/2024 1:02 PM EDT Temperature 37 C (98.6 F) 11/13/2024 1:02 PM EDT Respiratory Rate 16 11/13/2024 1:02 PM EDT Oxygen Saturation 96% 11/13/2024 1:02 PM EDT Inhaled Oxygen Concentration - - Weight 90.3 kg (199 lb) 11/13/2024 1:02 PM EDT Height 182.9 cm (6') 11/13/2024 1:02 PM EDT Body Mass Index 26.99 11/13/2024 1:02 PM EDT documented in this encounter Functional Status [...] Orlando Welsh RN documented in this encounter Progress Notes * Jose Antonio Meyers MD - 11/13/2024 1:34 PM EDT PROGRESS NOTES Patient Name: Bryan Harris SERVICE DATE: 11/13/2024 SERVICE TIME: 1:47 PM HPI: Mr. Harris is a 74 year old male who presents for Follow Up.Developed significant swelling.[facility] ED.No SOB,no abdominal pain MEDICATIONS: Current Outpatient Medications Medication Sig Dispense Refill torsemide (DEMADEX) 100 mg tablet Take 1 tablet by mouth once daily. 90 tablet 1 famotidine (PEPCID) 20 mg tablet Take 1 tablet by mouth two times a day. 180 tablet 0 metOLazone (ZAROXOLYN) 5 mg tablet Take 1 tablet by mouth once daily. 90 tablet 0 quiNINE 324 mg capsule Take 1 capsule by mouth twice daily 60 capsule 0 potassium chloride (K-TAB) 20 mEq TbER 2 tablets by ORAL/FEEDING TUBE route three times a day. 540 tablet 0 ascorbic acid, vitamin C, (VITAMIN C) 500 mg tablet Take 1,000 mg by mouth once daily. multivit-min/ferrous fumarate (MULTI VITAMIN ORAL) Take 1 tablet by mouth once daily. guaifenesin/dextromethorphan (MUCINEX DM ORAL) Take by mouth two times a day. loratadine (CLARITIN) 10 mg tablet Take 10 mg by mouth once daily. calcium dhs-cqm-U8-Zn-helicopter pilot-kian 250 mg-40 mg- 125 unit-3.75mg tab Take by mouth. diclofenac (VOLTAREN) 1 % topical gel amoxicillin [...] in stools or black stools, and change instool. GENITOURINARY: Negative for dysuria, frequency and incontinence [...] polyuria, polydipsia and goiter. PHYSICAL EXAMINATION: BP 125/75 Pulse 81 Temp 98.6 Resp 16 Ht 6' 0 (1.83m) Wt 199 lb (90.3kg) SpO2 96% BMI26.98 kg/(m^2). General appearance: Overweight, healthy, cooperative, in [...] diaphragmatic excursion. Lungs clear to auscultation. Heart: [place] normal. Precordium quiet. RRR. Normal HS with no murmurs.. Abdomen: Abdomen soft, non-tender. BS normal. No masses, organomegaly,+ abdominal wall edema.induration Extremities: Normal exam of the extremities, Extremities normal. No deformities, +2+3 pitting edema, no skin discoloration Musculoskeletal: Spine ROM normal. Muscular strength intact. Peripheral pulses: normal, capilliary refill <2secs, strong peripheral pulses Neuro: Gait normal. Reflexes normal and symmetric. Sensation grossly intact. ASSESSMENT/PLAN: 1. Anasarca - ICD9: 782.3, ICD10: R60.1 (primary diagnosis) - TORSEMIDE 100 MG TABLET - METOLAZONE 5 MG TABLET add - Increase KCL 20 meq 2 tabs tid 2. Recurrent 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 - ICD9: 511.9, ICD10: J90 - TORSEMIDE 100 MG TABLET 3. Hepatomegaly - ICD9: 789.1, ICD10: R16.0 - HEP ACUTE PANEL BL - HEPATITIS C VIRUS (HCV) RNA, QUANTITATIVE PCR, PLASMA/SERUM - IRON AND TIBC - COPPER BLOOD - AUTOIMMUNE HEPATITIS DIAGNOSTIC PANEL - US ABD RIGHT UPPER QUADRANT - US ELASTOGRAPHY LIVER - COMPREHENSIVE METABOLIC PANEL 4. Hiatal hernia - ICD9: 553.3, ICD10: K44.9 - FAMOTIDINE 20 MG TABLET 5. Chronic gastritis without bleeding, unspecified gastritis type - ICD9: 535.10, ICD10: K29.50 - FAMOTIDINE 20 MG TABLET bid started 6. Hypomagnesemia - ICD9: 275.2, ICD10: E83.42 - MAGNESIUM Jose Antonio Meyers MD SIGNATURE: Jose Antonio Meyers MD DATE: November 13, 2024 TIME: 1:47 PM documented in this encounter Plan of Treatment Upcoming Encounters Date Type Department Care Team (Late st Contact Info) Description 12/15/2024 11:15 AM EDT [place] [address] [facility] [place] [address] [place] [address] [facility] [address] Follow-up 12/16/2024 12:30 PM EDT Office Visit Vascular Surgery [address] [place] [address] Extremity cyanosis [R23.0] 12/16/2024 2:30 PM EDT Office Visit Vascular Surgery [address] [place] [address] Extremity cyanosis [R23.0] 12/16/2024 3:30 PM EDT Office Visit Vascular Surgery [address] [place] [address] Extremity cyanosis [R23.0] 12/22/2024 6:00 PM EDT [facility] Gastroenterology [address] [address] Araseli Wall, DIE CAST TECHNICIAN.ALL SOURCE COLLECTION MANAGER [address] [place] [address] Elevated alkaline phosphatase leve 05/21/2025 2:00 PM EST Office Visit Cardiology [address] [place] [address] [place] [address] [place] [address] 6 month follow up Pending Results Name Type Priority Associated Diagnoses Date /Time US ABD RIGHT UPPER QUADRANT Radiology Routine Hepatomegaly 11/23/2024 3:05 PM EDT US ELASTOGRAPHY LIVER Radiology Routine Hepatomegaly 11/23/2024 3:05 PM EDT Scheduled Orders Name Type Priority Associated Diagnoses Orde r Schedule AUTOIMMUNE HEPATITIS DIAGNOSTIC PANEL Lab Routine Hepatomegaly Expected: 11/13/2024, Expires: 02/12/2025 US ABD RIGHT UPPER QUADRANT Radiology Routine Hepatomegaly 1 Occurrences starting 11/13/2024 until 12/13/2025 US ELASTOGRAPHY LIVER Radiology Routine Hepatomegaly 1 Occurrences starting 11/13/2024 until 12/13/2025 documented as of this encounter Goals Goal Patient Goal Type Associated Problems Recent Progress Patient-Stated? Author Blood Pressure < 130/80 Blood Pressure 120/74( 025 10:15 PM EDT) No Sung Hartley MD documented as of this encounter Results * MAGNESIUM (11/17/2024 1:53 PM EDT) Magnesium 2.3 1.7 - 2.3 mg/dL 11/18/2024 1:52 PM EDT [facility] Blood BLOOD SPECIMEN / Unknown Venipuncture / Unknown 11/17/2024 1:53 PM EDT 11/17/2024 1:53 PM EDT us Jose Antonio Meyers MD LABORATORY Final Resul t [facility] [address] [place] [address], [place] * (ABNORMAL) COMPREHENSIVE METABOLIC PANEL (11/17/2024 1:53 PM EDT) Protein, Total 7.3 6.3 - 8.0 g/dL 11/18/2024 1:52 PM EDT [facility] Albumin 4.1 3.9 - 4.9 g/dL 11/18/2024 1:52 PM EDT [facility] Calcium, Total 9.5 8.5 - 10.2 mg/dL 11/18/2024 1:52 PM EDT [facility] Bilirubin, Total 0.8 0.2 - 1.3 mg/dL 11/18/2024 1:52 PM EDT [facility] Alkaline Phosphatase 112 38 - 113 U/L 11/18/2024 1:52 PM EDT [facility] AST 47(H) 14 - 40 U/L 11/18/2024 1:52 PM EDT [facility] ALT 34 10 - 54 U/L 11/18/2024 1:52 PM T [facility] Glucose 104(H) 74 - 99 mg/dL 11/18/2024 1:52 PM T [facility] Comment: The [place] Diabetes Association (ADA) provides guidance for cutoff [...] Standards of Medical Care in Diabetes 2016, [place] Diabetes Association. Diabetes Care. 2016.39(Suppl 1). BUN 55(H) 9 - 24 mg/dL 11/18/2024 1:52 PM [facility] Creatinine 1.38(H) 0.73 - 1.22 mg/dL 11/18/2024 1:52 PM [facility] Sodium 139 136 - 144 mmol/L 11/18/2024 1:52 PM [facility] Potassium 3.8 3.7 - 5.1 mmol/L 11/18/2024 1:52 PM [facility] Chloride 97(L) 98 - 107 mmol/L 11/18/2024 1:52 PM [facility] CO2 30 22 - 30 mmol/L 11/18/2024 1:52 PM [facility] Anion Gap 12 8 - 15 mmol/L 11/18/2024 1:52 PM T [facility] Estimated Glomerular Filtration Rate 54(L) >=60 mL/min/1. 73m 11/18/2024 1:52 PM EDT [facility] Comment:Estimated Glomerular Filtration Rate (eGFR) [...] BLOOD SPECIMEN / Unknown Venipuncture / Unknown 11/17/2024 1:53 PM EDT 11/17/2024 1:53 PM EDT Jose Antonio Meyers MD LABORATORY Final Resul t Performing Organization Address [facility] de Phone Number [facility] [address] [place], [place] [phone], [place] * (ABNORMAL) COPPER BLOOD (11/17/2024 1:53 PM EDT) Copper 159(H) 70 - 140 ug/dL 11/18/2024 11:03 AM EDT [facility] Comment:This test was devyasemino ped, and its performance characteristics determined by the [facility] Department of Pathology and Laboratory Medicine. It has not been cleared or approved by the FDA. The [facility] Department of Pathology and Laboratory Medicine is regulated under CLIA as qualified to perform high- complexity testing. This test is used for clinical purposes. It should not be regarded as investigational or for research. Blood BLOOD SPECIMEN / Unknown Venipuncture / Unknown 11/17/2024 1:53 PM EDT 11/17/2024 1:53 PM EDT Jose Antonio Meyers MD LABORATORY Final Resul t Performing Organization Address [facility] Co de Phone Number [facility] [address] [place], [place] [phone], [place] * IRON AND TIBC (11/17/2024 1:53 PM EDT) Iron 72 41 - 186 ug/dL 11/18/2024 2:24 PM EDT [facility] TIBC 321 232 - 386 ug/dL 11/18/2024 2:24 PM EDT [facility] Transferrin Saturation 22.4 15.0 - 57.0 % 11/18/2024 2:24 PM EDT [facility] Blood BLOOD SPECIMEN / Unknown Venipuncture / Unknown 11/17/2024 1:53 PM EDT 11/17/2024 1:53 PM EDT Jose Antonio Meyers MD LABORATORY Final Resul t Performing Organization Address City/[facility]/ZIP Co de Phone Number [facility] [address] [place] [address], * HEPATITIS C VIRUS (HCV) RNA, QUANTITATIVE PCR, PLASMA/SERUM (11/17/2024 1:53 PM EDT) Pathologist [facility] HCV RNA Not detected Not detected KRISTIE BAYLEE [address] 11/18/2024 10:20 AM EDT [facility] Blood BLOOD SPECIMEN / Unknown Venipuncture / Unknown 11/17/2024 1:53 PM EDT 11/17/2024 1:53 PM EDT Narrative [facility] - 11/18/2024 10:20 AM EDT baylee HCV is an in vitro nucleic acid amplification test for both the detection and quantitation of hepatitis C virus RNA, in human EDTA plasma or serum, of HCV antibody positive or HCV-infected individuals. The linear range of the assay is 15 to 100,000,000 IU/mL (1.18 - 8.00 log IU/mL). The lower limit of detection of the assay is 15 IU/mL. Jose Antonio Meyers MD LABORATORY Final Resul t [facility] [address] [place] [address], documented in this encounter Visit Diagnoses Diagnosis Anasarca- Primary Edema Recurrent 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 Unspecified pleural effusion Hepatomegaly Hiatal hernia Diaphragmatic hernia without mention of obstruction or gangrene Chronic gastritis without bleeding, unspecified gastritis type Hypomagnesemia Disorders of magnesium metabolism documented in this encounter Care Teams Bd Special Education Teacher Relationship Specialty Start [place] [address] [place] [address] PCP - General Family Medicine 12/29/23 Jere Sales MD [address] [address] Referring Gastroenterology 12/05/20 Calin Gotti DO [address] [place] [address] Internal Medicine 10/16/23 documented as of this encounter
--- OUTSIDE RECORDS SUMMARY | 2024-11-19 13:14 | XMS_ITS | Encounter Summary ---
Author Organization [facility] Address [address] [place] [address] Care Team Providers Care Package Sealer Machine Name Role Phone Jere Sales MD Unavailable [phone] Calin Gotti DO Unavailable [phone] Jose Antonio Meyers MD Primary Care Provider [phone] Source Comments In the event this information is protected by the Federal Confidentiality of Alcohol and Drug AbusePatient Records regulations: The Federal rules restrict any use of the information to criminally investigate or prosecute any alcohol or drug abuse patient.[facility] Reason for Visit * Reason Comments Radio Gen HB6 Encounter Details Date Type Department Care Team (Latest Contact Info) Description 11/19/2024 1:14 PM EDT - 11/19/2024 4:18 PM EDT Hospital Encounter Radiology [address] [place] [address] Pleural effusion [J90] Discharge Disposition: Home Social History Tobacco Use Types Packs/Day Years Used Date Smoking Tobacco: Never Smokeless Tobacco: Never Alcohol Use Standard Drinks/Week Comments Yes 0 (1 standard drink = 0.6 oz pure alcohol) socially, no drink since 06/2023 [facility] Utilities Answer Date Recorded In [...] money to buy more. Never true 11/21/19 Within the past 12 months, t he [...] place to sleep or slept in a halfway (including now)? No 11/21/2023 Area Deprivation Index Answer Date Hari rded National Score (1-100), lower number is lower ri sk 68 12/11/2023 State Score (1-10), lower number is lower risk 5 12/11/2023 Data from: https://www.neighborhoodatlas.medicine.[facility].edu/. Last address used for calculation 2230 12/11/2023 [...] of Assessment Author No 12/26/2023 4:30 PM Orlando Coley RN documented as of this encounter Mental Status * Because of a physical, mental, or emotional condition, do you have serious difficulty concentrating, remembering, or making decisions? Answer Entry Date Author No 12/26/2023 4:30 PM Orlando Coley RN documented in this encounter Medications at Time of Discharge torsemide (DEMADEX) 100 mg tabletIndications :Recurrent 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,Anasarca Take 1 tablet by mouth once daily. 90 tablet 1 11/13/2024 02/11/2025 famotidine (PEPCID) 20 mg tabletIndications :Hiatal hernia,Chronic gastritis without bleeding, unspecified gastritis type Take 1 tablet by mouth two times a day. 180 tablet 11/13/2024 02/11/2025 metOLazone (ZAROXOLYN) 5 mg tabletIndications :Anasarca Take 1 tablet by mouth once daily. 90 tablet 11/13/2024 02/11/2025 quiNINE 324 mg capsuleIndication s:Cramp and spasm [...] 10 mg by mouth once daily. calcium tbf-vpu-W7-Zn-hat copyist -kian 250 mg-40 mg- 125 unit-3.75mg tab Take by mouth. diclofenac (VOLTAREN) 1 % topical gel 01/22/2024 allopurinol (ZYLOPRIM) 300 mg tablet Take 300 mg by mouth once daily. 10/21/2020 atorvastatin (LIPITOR) 10 mg tablet Take 1 tablet by mouth once daily. 10/31/2020 documented as of this encounter Progress Notes * Se Quinn RT(R) - 11/19/2024 1:45 PM EDT Radiology Service Progress Note PATIENT NAME: Bryan Harris DATE OF SERVICE: November 19, 2024 TIME: 1:24 PM PATIENT IDENTITY VERIFICATION COMPLETED USING TWO (2) IDENTIFIERS: Name and Date of confirmedby patient verbally. FALL SCREENING: Has the patient had 2 falls in the last year or 1 fall with injury or currently using an Ambulatory Assistive Device (Walker, Cane, Wheelchair, Crutches, etc.)? No PATIENT GENDER DATA: Assigned male at PATIENT RELEVANT IMPLANT DATA REVIEWED: Not Applicable PATIENT PRESENTS WITH AN IMPLANTABLE OR ATTACHED REGISTRY NP: No RADIOLOGY DEPARTMENT: General X-ray: Exam(s) Completed: Chest X-Ray PERIPHERAL IV DATA: Not applicable SIGNED BY: RT Dimitri(R) November 19, 2024 1:24 PM documented in this encounter Plan of Treatment Upcoming Encounters Date Type Department Care Team (Late st Contact Info) Description 12/15/2024 11:15 AM EDT [place] [address] [place] [address] [place] [address] [place] [address] Follow-up 12/16/2024 12:30 PM EDT Office Visit Vascular Surgery [address] [place] [address] Extremity cyanosis [R23.0] 12/16/2024 2:30 PM EDT Office Visit Vascular Surgery [address] [place] [address] Extremity cyanosis [R23.0] 12/16/2024 3:30 PM EDT Office Visit Vascular Surgery [address] [place] [address] Extremity cyanosis [R23.0] 12/22/2024 6:00 PM EDT [facility] Gastroenterology [address] [address] Araseli Wall APRN.COIL MAKER [address] [place] [address] Elevated alkaline phosphatase leve 05/21/2025 2:00 PM EST Office Visit Cardiology [address] [place] [address] [place] [address] [facility] [place] [address] 6 month follow up documented as of this encounter Goals Goal Patient Goal Type Associated Problems Recent Progress Patient-Stated? Author Blood Pressure < 130/80 Blood Pressure 120/74( 025 10:15 PM EDT) No Sung Hartley MD documented as of this encounter Procedures Procedure Name Priority Date/Time Associated Diagnosis Comments XR CHEST 2V FRONTAL/LAT Routine 11/19/2024 1:26 PM EDT Pleural effusion documented in this encounter Results * XR CHEST 2V FRONTAL/LAT (11/19/2024 1:26 PM EDT) Anatomical Region Laterality Modality Chest Other 11/19/2024 1:26 PM EDT Impressions 11/19/2024 4:04 PM EDT IMPRESSION: See result Export Manager: ALONSO Transcribe Date/Time: Nov 19 2024 3:58P Dictated by : KYLER NICHOLAS MD This examination was interpreted and the report reviewed and electronically signed by: KYLER NICHOLAS MD on Nov 19 2024 4:01PM EST Narrative 11/19/2024 4:04 PM EDT * * *Final Report* * * DATE OF EXAM: Nov 19 2024 1:26PM KENNY [id number] - XR CHEST 2V FRONTAL/LAT / PROCEDURE REASON: Pleural effusion * * * * Physician Interpretation * * * * EXAMINATION: CHEST RADIOGRAPH (2 VIEW FRONTAL & LATERAL) CLINICAL HISTORY: Pleural effusion MQ: XC2_6 EXAM DATE/TIME: 11/19/2024 1:26 PM COMPARISON: 11/12/2024 RESULT: Lines, tubes, and devices: Right Pleurx catheter. Lungs and pleura: No new lung consolidation. Small pleural effusion noted on the right, probably peripherally loculated in the inferior hemithorax, with some fluid component likely involving interlobar fissures/fissures. The degree of apparent elevation of right hemidiaphragm appears improved and may relate to decreasing subpulmonic pleural fluid or possibly associated with increased lung volume. Minimal right basilar atelectasis. Stable left lung. Cardiomediastinal silhouette: Stable cardiomediastinal silhouette. Focal atherosclerotic calcifications of the aortic arch. Bones and soft tissues: Degenerative changes are present within the thoracic spine. Presumed subtle posttraumatic changes of the left rib/ribs. Procedure Note Provider, [facility] - 11/19/2024 * * *Final Report* * * DATE OF EXAM: Nov 19 2024 1:26PM KENNY [id number] - XR CHEST 2V FRONTAL/LAT / PROCEDURE REASON: Pleural effusion * * * * Physician Interpretation * * * * EXAMINATION: CHEST RADIOGRAPH (2 VIEW FRONTAL & LATERAL) CLINICAL HISTORY: Pleural effusion MQ: XC2_6 EXAM DATE/TIME: 11/19/2024 1:26 PM COMPARISON: 11/12/2024 RESULT: Lines, tubes, and devices: Right Pleurx catheter. Lungs and pleura: No new lung consolidation. Small pleural effusion noted on the right, probably peripherally loculated in the inferior hemithorax, with some fluid component likely involving interlobar fissures/fissures. The degree of apparent elevation of right hemidiaphragm appears improved and may relate to decreasing subpulmonic pleural fluid or possibly associated with increased lung volume. Minimal right basilar atelectasis. Stable left lung. Cardiomediastinal silhouette: Stable cardiomediastinal silhouette. Focal atherosclerotic calcifications of the aortic arch. Bones and soft tissues: Degenerative changes are present within the thoracic spine. Presumed subtle posttraumatic changes of the left rib/ribs. IMPRESSION IMPRESSION: See result Export Manager: ALONSO Transcribe Date/Time: Nov 19 2024 3:58P Dictated by : KYLER NICHOLAS MD This examination was interpreted and the report reviewed and electronically signed by: KYLER NICHOLAS MD on Nov 19 2024 4:01PM EST Katerina Pascual PA-C RAD-PAMA Final Res ult documented in this encounter Visit Diagnoses Diagnosis Pleural effusion Unspecified pleural effusion documented in this encounter Care Teams Package Sealer Machine Relationship Specialty Start [place] [address] [place] [address] PCP - General Family Medicine 12/29/23 Jere Sales MD [address] [address] Referring Gastroenterology 12/05/20 Calin Gotti DO [address] [place] [address] Internal Medicine 10/16/23 documented as of this encounter
--- OUTSIDE RECORDS SUMMARY | 2024-11-19 14:00 | XMS_ITS | Encounter Summary ---
Author Organization [facility] Address [address] [place] [address] Care Team Providers Care Back Maker Name Role Phone Jere Sales MD Unavailable [phone] Calin Gotti DO Unavailable [phone] Jose Antonio Meyers MD Primary Care Provider [phone] Source Comments In the event this information is protected by the Federal Confidentiality of Alcohol and Drug AbusePatient Records regulations: The Federal rules restrict any use of the information to criminally investigate or prosecute any alcohol or drug abuse patient.[facility] Reason for Visit * Reason Comments Follow Up Shortness of Breath Encounter Details Date Type Department Care Team (Late st Contact Info) Description 11/19/2024 2:00 PM EDT Office Visit Pulmonary Medicine [address] [place], [place] [id number] Triston Riggs MD [address] [facility] [place] [address] Pleural effusion (Primary Dx) Social History Tobacco Use Types Packs/Day Years Used Date Smoking Tobacco: Never Smokeless Tobacco: Never Alcohol Use Standard Drinks/Week Comments Yes 0 (1 standard drink = 0.6 oz pure alcohol) socially, no drink since 06/2023 [facility] Utilities Answer Date Recorded In the [...] place to sleep or slept in a snf (including now)? No 11/21/2023 Area Deprivation Index Answer Date Hari rded National Score (1-100), lower number is lower ri sk 68 12/11/2023 State Score (1-10), lower number is lower risk 5 12/11/2023 Data from: https://www.neighborhoodatlas.medicine.[facility].edu/. Last address used for calculation [address] 12/11/2023 Sex and Gender Information Value Date Recorded Sex Assigned at Not on file Legal Sex Male 12:24 PM EDT Gender Identity Not on file Sexual Orientation Not on file documented as of this encounter Last Filed Vital Signs Vital Sign Reading Time Taken Comments Blood Pressure 129/83 11/19/2024 1:58 PM EDT Pulse 81 11/19/2024 1:58 PM EDT Temperature 36 C (96.8 F) 11/19/2024 1:58 PM EDT Respiratory Rate 16 11/19/2024 1:58 PM EDT Oxygen Saturation 97% 11/19/2024 1:58 PM EDT Inhaled Oxygen Concentration - - Weight - - Height - - Body Mass Index - - documented in this encounter Functional Status * [...] documented in this encounter Progress Notes * Triston Riggs MD - 11/19/2024 3:28 PM EDT Images from the original note were not included. [facility] CC: Persistent RIGHT pleural effusion Bryan Harris is a 74 year old male sent by Dr. STEPHANE Douglas MD for evaluation of persistent RIGHT pleural effusion. My final recommendations will be communicated to the requesting health care provider by way of the shared medical record for internal providers or letter via the [employer] for external providers. Assessment and Plan 1. Panserositis with associated fluid collections of unclear etiology Pleuritis with persistent (currently) transudate effusion H/o pericardial effusion (08/15/2023) Ascites Pleural effusion seems to have responded to instillation of intrapleural steroids. Catheter not accessed 11/17, 11/18 or today. 11/15 10 ml, 11/16 15 ml with less than 100 ml for the two weeks prior. No change in exertional capacity/dyspnea. 2. Lymphocytic colitis 3. Chronic cough Plan: 1. US of RIGHT chest, followed by aspiration of TPC Effusion is tiny and < 50 ml drainage will recommend removal of TPC Very small volume of perihepatic ascites seen. Reviewed removal of TPC; indications, risks and alternatives. Consent obtained. Will move to procedure room to remove TPC. 2. Will follow closely post removal Standing order for CxR placed He will obtain CxR in [place] as need for perceived recurrence of effusion or progressive dyspnea. 3. Continue diuretic regimen as established. 4. Monitor salt intake 5. Check daily weights. 6. Encouraged regular progressive physical activity. HPI: Mr. Bryan Harris is a 74 y/o male with persistent RIGHT pleural effusion with TPC placed lastNovember 2023 during VATS thoracoscopy with pleural biopsy and unsuccessful chemical/mechanical pleurodesis in November. Since the TPC was placed there has been consistent out put with aspiration of the TPC. This process all started about a two years ago with a non-specific cough that was nonproductive butdisruptive symptom. While on plaquenil he started with diarrhea which prompted the colonoscopy withidentification of lymphocytic colitis. Initially after the TPC was placed he was draining up to 700+ ml's three times a week. Over the interval months, he has been placed on both diuretics and steroids with reduction in his output. Previously he has given multiple inhalers (ICS) for his cough without improvement. Historically, he has been draining consistently since the TPC was placed. Previously, his drainage interval was decreased from 3x per week to 2x per week with near concomitant decrease in his diuretic dose (50 mg). Unfortunately, his pleural fluid output increased back to the 250 range and the diuretic dose was increased back to 100 mg. Since he was given the two doses in intrapleural steroids (400 mg triamcinolone) his output has gone down and remained low. This is in the setting of increased abdominal girth and LE edema. He notes no associated dyspnea in relation to his pleural fluid output. Only when the effusions were > 500 ml did he have some sense of limitation. In preperation for today's visit he did not drain for two days prior. In the last two weeks before that he did not drain 100 ml or more. 11/15 10 ml, 11/16 15 ml with less than 100 ml for the two weeks prior. No change in exertional capacity/dyspnea.. Catheter not accessed 11/17, 11/18 or today. 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 He continues to note increased LE edema and abdominal girth but this has improved since the recent bump in diuretics. PAST MEDICAL HISTORY Diagnosis Date GERD (gastroesophageal [...] 10 mg by mouth once daily. calcium tsl-kby-Q1-Zn-copy center associate-kian 250 mg-40 mg- 125 unit-3.75mg tab Take [...] fevers, chills, night sweats or weight loss. His sleep has improved. HEENT: No changes in hearing or vision, [...] systems is otherwise negative. PHYSICAL EXAMINATION: BP 129/83 Pulse 81 Temp 96.8 Resp 16 SpO2 97% General appearance: Well appearing, alert, in no acute distress Ears/Nose/Mouth/Throat: Lips, oral mucosa, and tongue normal. Teeth and gums normal. Posterior oropharynx/palates normal without cobblestoning or erythema. Mallampati score of 3. Neck: Supple, midline trachea, thyroid nontender and non-enlarged. JVD not present at 30 degrees ofrecline. Lymphatic: No submental, cervical, or axillary adenopathy. [...] identified. There is dependent/compressive right lower lobe at electasis. Pleural space: A well-positioned right-sided chest tube is in place. A small to moderate size persistent right-sided pleural effusion is present. No left-sided pleural fluid is present. Lower neck, lymph nodes, and mediastinum: The imaged thyroid gland is normal. No lymphadenopathy inthe supraclavicular, axillary, mediastinal, or hilar regions. Heart, pericardium, and thoracic vessels: The thoracic aorta and main pulmonary artery are normal in caliber. The cardiac chambers are normal in size. No coronary artery atherosclerotic calcifications are noted, although the study is not optimized for coronary assessment. No pericardial effusion orthickening. Bones and soft tissues: No destructive bone lesion. Chest wall is unremarkable. Upper abdomen: No abnormality in the imaged upper abdomen. Localizer images: No additional findings. IMPRESSION: 1. A few scattered groundglass opacities are present in the posterior right upper lobe suggestive of an infectious/inflammatory process. This is new since previous exam. 2. Well-positioned right-sided chest tube with a persistent small to moderate- sized pleural effusion. I reviewed his recent CT enterography scan images and report, dated 04/22/2024 and compared to priors CT abdomen on 12/20/2023. I agree with the following assessment with the following comment. There isnotable perisplenic ascites on the 12/19 study. The radiologist notes; IMPRESSION: No active bowel inflammation. Small volume ascites and small right pleural effusion, both increased since 12/20/2023. . 11/19/2024 POCUS RIGHT CHEST Reason for examination: Persistent [...] restriction. The diffusing capacity is normal. LABS: Latest Reference Range & Units 09/03/24 11:11 09/11/24 13:13 10/14/24 15:53 10/15/24 10:25 10/23/24 13:18 11/05/24 11:42 11/12/24 13:30 11/17/24 13:53 Sodium 136 - 144 mmol/L 142 137 141 142 138 141 139 Potassium 3.7 - 5.1 mmol/L 3.1 (L) 4.9 3.8 4.1 4.0 3.3 (L) 3.8 Chloride 98 - 107 mmol/L 96 (L) 100 100 101 100 103 97 (L) CO2 22 - 30 mmol/L 28 24 28 27 25 23 30 BUN 9 - 24 mg/dL 45 (H) 53 (H) 33 (H) 35 (H) 39 (H) 37 (H) 55 (H) Creatinine 0.73 - 1.22 mg/dL 1.72 (H) 1.71 (H) 1.13 1.09 1.08 1.12 1.38 (H) Glucose 74 - 99 mg/dL 189 (H) 107 (H) 104 (H) 116 (H) 140 (H) 115 (H) 104 (H) Protein, Total 6.3 - 8.0 g/dL 7.4 7.5 7.6 6.7 7.3 Calcium 8.5 - 10.2 mg/dL 9.1 9.2 9.3 9.7 9.0 8.8 9.5 Magnesium 1.7 - 2.3 mg/dL 2.2 2.2 2.4 (H) 2.1 2.3 Albumin 3.9 - 4.9 g/dL 4.1 4.2 4.2 3.8 (L) 4.1 Bilirubin, Total 0.2 - 1.3 mg/dL 0.6 0.7 0.6 0.7 0.8 Alkaline Phosphatase 38 - 113 U/L 140 (H) 124 (H) 125 (H) 108 112 ALT 10 - 54 U/L 12 40 41 40 34 AST 14 - 40 U/L 27 49 (H) 53 (H) 46 (H) 47 (H) Anion Gap 8 - 15 mmol/L 18 (H) 13 13 14 13 15 12 Amylase 30 - 104 U/L 70 Lipase 16 - 61 U/L 55 GGT 10 - 70 U/L 136 (H) NT Pro BNP <125 pg/mL 465 (H) eGFR >=60 mL/min/1.73m 41 (L) 42 (L) 69 72 72 69 54 (L) Iron 41 - 186 ug/dL 72 TIBC 232 - 386 ug/dL 321 Transferrin Saturation 15.0 - 57.0 % 22.4 UltraSens C-Reactive Protein <3.1 mg/L 13.2 (H) [facility] Reference Range & Units Most Recent 12/26/23 08:54 03/03/24 13:30 03/30/24 11:53 04/20/24 13:25 07/29/24 11:29 09/11/24 13:13 10/14/24 15:53 10/15/24 10:25 11/05/24 11:42 11/12/24 13:30 WBC 3.70 - 11.00 k/uL 8.79 11/12/24 13:30 5. 7.63 6.84 7.96 7.62 11.59 (H) 7.85 11.16 (H) 8.65 8.79 RBC 4.20 - 6.00 m/uL 3.82 (L) 11/12/24 13:30 4.22 4.17 (L) 4.01 (L) 3.93 (L) 3.64 (L) 3.84 (L) 4.08 (L) 4.13 (L) 3.89 (L) 3.82 (L) Hemoglobin 13.0 - 17.0 g/dL 12.3 (L) 11/12/24 13:30 12.5 (L) 12.8 (L) 11.9 (L) 12.0 (L) 11.4 (L) 12.0 (L) 13.0 12.9 (L) 12.4 (L) 12.3 (L) Hematocrit 39.0 - 51.0 % 37.1 (L) 11/12/24 13:30 39.2 39.0 38.4 (L) 38.0 (L) 34.6 (L) 37.8 (L) 39.8 40.7 38.3 (L) 37.1 (L) Platelet Count 150 - 400 k/uL 189 11/12/24 13:30 218 255 243 267 222 250 183 202 150 189 MCV 80.0 - 100.0 fL 97.1 11/12/24 13:30 92.9 93.5 95.8 96.7 95.1 98.4 97.5 98.5 98.5 97.1 MCH 26.0 - 34.0 pg 32.2 11/12/24 13:30 29.6 30.7 29.7 30.5 31.3 31.3 31.9 31.2 31.9 32.2 MCHC 30.5 - 36.0 g/dL 33.2 11/12/24 13:30 31.9 32.8 31.0 31.6 32.9 31.7 32.7 31.7 32.4 33.2 MPV 9.0 - 12.7 fL 10.0 11/12/24 13:30 10.3 9.7 10.7 11.1 10.1 9.9 10.9 10.5 9.8 10.0 RDW-CV 11.5 - 15.0 % 16.6 (H) 11/12/24 13:30 14.8 15.4 (H) 15.6 (H) 14.7 16.2 (H) 15.8 (H) 15.7 (H) 15.5 (H) 16.2 (H) 16.6 (H) DTYPE Auto 11/12/24 13:30 Auto Auto Auto Auto Neut% % 80.0 11/12/24 13:30 69.7 74.3 84.6 80.0 Abs Neut (ANC) 1.45 - 7.50 k/uL 7.03 11/12/24 13:30 4.77 5.91 9.45 (H) 7.03 Lymph% % 10.4 11/12/24 13:30 17.7 11.9 7.2 10.4 Abs Lymph 1.00 - 4.00 k/uL 0.91 (L) 11/12/24 13:30 1.21 0.95 (L) 0.80 (L) 0.91 (L) [place]agara% % 7.6 11/12/24 13:30 11.7 12.9 7.3 7.6 Abs [place]agara <0.87 k/uL 0.67 11/12/24 13:30 0.80 1.03 (H) 0.81 0.67 Eosin% % 0.0 11/12/24 13:30 0.0 0.0 0.0 0.0 Abs Eosin <0.46 k/uL <0.03 11/12/24 13:30 <0.03 <0.03 <0.03 <0.03 Baso% % 0.2 11/12/24 13:30 0.6 0.5 0.1 0.2 Abs Baso <0.11 k/uL <0.03 11/12/24 13:30 0.04 0.04 <0.03 <0.03 Immature Gran % % 1.8 11/12/24 13:30 0.3 0.4 0.8 1.8 IMMATURE GRANS (ABS) <0.10 k/uL 0.16 (H) 11/12/24 13:30 <0.03 0.03 0.09 0.16 (H) NRBC /100 WBC 0.0 11/12/24 13:30 0.0 0.0 0.0 0.0 Absolute nRBC <0.01 k/uL <0.01 11/12/24 13:30 <0.01 <0.01 <0.01 <0.01 <0.01 <0.01 <0.01 <0.01 <0.01 <0.01 04/28/2024 Colonoscopy/EGD A. Duodenum, biopsy: -Duodenal mucosa [...] is non-specific and can be associated with anumber of etiologies. Although most cases remain idiopathic, the differential includes medication-related enteropathy (caused by such agents as NSAIDs, PPIs, histamine receptor antagonists, SSRIs or angiotensin receptor blockers, cephalosporins, carbamazepine, gold salts, ipilimumab etc.), resolving infections [both bacterial (such as C. Jejuni, E. Coli) and viral], and as a colonic manifestationof gluten-sensitive enteropathy among others. Correlation with the clinical, laboratory and colonoscopic findings should be of value in this differential. 6/5/08763 VATS Final Diagnosis: A. Right pleura, biopsy: [...] 36 % 39 80 (H) 80 (H) Niagara%, BF % 6 Macro%, BF 64 - [...] Pulmonology. Pulmonary, Allergy & Critical Care Medicine [facility] documented in this encounter Plan of Treatment Upcoming Encounters Date Type Department Care Team (Late st Contact Info) Description 12/15/2024 11:15 AM EDT [place] [address] [facility] [place] [address] [place] [address] [place] [address] Follow-up 12/16/2024 12:30 PM EDT Office Visit Vascular Surgery [address] [place] [address] Extremity cyanosis [R23.0] 12/16/2024 2:30 PM EDT Office Visit Vascular Surgery [address] [place] [address] Extremity cyanosis [R23.0] 12/16/2024 3:30 PM EDT Office Visit Vascular Surgery [address] [place] [address] Extremity cyanosis [R23.0] 12/22/2024 6:00 PM EDT [facility] [address] [address] Araseli Wall APRN.DECOMMISSIONING WELL SITE MANAGER [address] [place] [address] Elevated alkaline phosphatase leve 05/21/2025 2:00 PM EST Office Visit Cardiology [address] [place] [address] [place] [address] [place] [address] 6 month follow up documented as of this encounter Goals Goal Patient Goal Type Associated Problems Recent Progress Patient-Stated? Author Blood Pressure < 130/80 Blood Pressure 120/74( 025 10:15 PM EDT) No Sung Hartley MD documented as of this encounter Procedures Procedure Name Priority Date/Time Associated Diagnosis Comments US CHEST (POC) H23 USE ONLY Routine 11/19/2024 4:45 PM EDT Pleural effusion documented in this encounter Results * US CHEST (POC) H23 USE ONLY (11/19/2024 4:45 PM EDT) Anatomical Region Laterality Modality Other 11/19/2024 4:45 PM EDT us Triston Riggs MD IMAGES Final Result documented in this encounter Visit Diagnoses Diagnosis Pleural effusion- Primary Unspecified pleural effusion documented in this encounter Care Teams Back Maker Relationship Specialty Start [place] [address] [place] [address] PCP - General Family Medicine 12/29/23 Jere Sales MD [address] [address] Referring Gastroenterology 12/05/20 Calin Gotti DO [address] [place] [address] Internal Medicine 10/16/23 documented as of this encounter
--- OUTSIDE RECORDS SUMMARY | 2024-11-19 16:19 | XMS_ITS | Encounter Summary ---
Author Organization [facility] Address [address] [place], [place] [id number] Care Team Providers Care Process Engineering Manager Name Role Phone Jere Sales MD Unavailable [phone] Calin Gotti DO Unavailable [phone] Jose Antonio Meyers MD Primary Care Provider [phone] Source Comments In the event this information is protected by the Federal Confidentiality of Alcohol and Drug AbusePatient Records regulations: The Federal rules restrict any use of the information to criminally investigate or prosecute any alcohol or drug abuse patient.[facility] Reason for Visit * Auth/Cert (Routine) Specialty Diagnoses / Procedures Referred By Contac t Referred To Contact ADMITTING Diagnoses Pleural effusion Pleural effusion [J90] Procedures THORACENTESIS NEEDLE/CATH PLEURA W/IMAGING THORACENTESIS NEEDLE OR CATHETER ASPIRATION OF THE PLEURAL SPACE W IMAGING GUIDANCE Admitting [address] [place] [address] Referral ID Status Reason Start Date Expiration Date Visits Re quested Visits Authorized [id number] 1 1 Encounter Details Date Type Department Care Team (Latest Contact Info) Description 11/19/2024 4:19 PM EDT - 11/19/2024 5:00 PM EDT Hospital Encounter Admitting [address] [address] Triston Riggs MD [address] [place] [address] Pleural effusion [J90] Discharge Disposition: Home Social History Tobacco Use Types Packs/Day Years Used Date Smoking Tobacco: Never Smokeless Tobacco: Never Alcohol Use Standard Drinks/Week Comments Yes 0 (1 standard drink = 0.6 oz pure alcohol) socially, no drink since 06/2023 [facility] Utilities Answer Date Recorded In the [...] place to sleep or slept in a nursing home (including now)? No 11/21/2023 Area Deprivation Index Answer Date Hari rded National Score (1-100), lower number is lower ri sk 68 12/11/2023 State Score (1-10), lower number is lower risk 5 12/11/2023 Data from: https://www.neighborhoodatlas.medicine.[facility].edu/. Last address used for calculation 2230 12/11/2023 Sex and Gender Information Value Date Recorded Sex Assigned at Not on file Legal Sex Male 12:24 PM EDT Gender Identity Not on file Sexual Orientation Not on file documented as of this encounter Last Filed Vital Signs Vital Sign Reading Time Taken Comments Blood Pressure 122/71 11/19/2024 4:55 PM EDT Pulse 90 11/19/2024 4:55 PM EDT Temperature - - Respiratory Rate - - Oxygen Saturation 95% 11/19/2024 4:55 PM EDT Inhaled Oxygen Concentration - - [...] Orlando Welsh RN documented in this encounter Medications at [...] 10 mg by mouth once daily. calcium wgo-eaj-J0-Zn-gyroscopic instrument mechanic -kian 250 mg-40 mg- 125 unit-3.75mg tab Take by mouth. diclofenac (VOLTAREN) 1 % topical gel 01/22/2024 allopurinol (ZYLOPRIM) 300 mg tablet Take 300 mg by mouth once daily. 10/21/2020 atorvastatin (LIPITOR) 10 mg tablet Take 1 tablet by mouth once daily. 10/31/2020 documented as of this encounter OR Notes * Operative Report - Triston Riggs MD - 11/19/2024 4:15 PM EDTSummary: RIGHT TPC removal Images from the original note were not included. PROCEDURE NOTE: TUNNELED PLEURAL CATHETER REMOVAL Outpatient PLEASE DO NOT REMOVE FROM THE CHART OR MODIFY PRINTED COPY Patient Name: Bryan Harris REAL ESTATE ACCOUNT EXECUTIVE: Triston Riggs MD WEIGHT SHIFTER: None PRIMARY CARE PHYSICIAN: Jose Antonio Meyers MD Procedure: right Tunneled Pleural Catheter Removal. ICD-10-CM Code: J90 Pre-procedure dx: Right pleural effusion in the setting of chronic inflammation and diffuse edema. Post procedure dx: Right pleural effusion in the setting of chronic inflammation and diffuse edema. Indication: Resolution of recurrent effusion Procedure Start: 16:20. INFORMED CONSENT Informed consent obtained and filed in patient's chart. SAFE PRACTICE Sign in Communication: Completed. Time Out: The procedural team confirmed the Correct Patient, the Correct Procedure, the Correct Site and the Correct Position (if applicable) during the audible time out: Completed. Sign Out Communication: Completed. SAFE PRACTICE Sign in Communication: Completed. Time Out: The procedural team confirmed the Correct Patient, the Correct Procedure, the Correct Site and the Correct Position (if applicable) during the audible time out: Completed. Sign Out Communication: Completed. Anesthesia: 10 ml 1% Lidocaine Sedation: No Estimated Blood Loss: Minimal After assessing the functionality of the right and confirming successful pleurodesis the decision to proceed with removal was confirmed. PROCEDURE IN DETAIL: The right tunneled pleural catheter site was prepped and draped. The catheter site was cleaned with chlorhexidine. Local anesthesia was administered with 1% lidocaine with 1:100,000 epinephrine. The catheter cuff was difficult to feel and could not be grasped from the exit site. The cuff was identified immediately proximal from the transthoracic insertion site. This area was treated with more lidocaine with epi. An 11 blade scalpel was used to make a small incision in the region of the cuff. The cuff was able to be identified and dissected free. During this process air was heard entering the chest. The catheter was then extracted while the patient was holding their breath. The catheter site was then closed with a steristrip and covered with gauze and tegaderm. Post procedure US identified a lung point at the level of the 3rd intercostal space with absent apical lung sliding. Procedure Stop: 16:45 IMMEDIATE COMPLICATIONS: Small PTX IMPRESSION: Successful removal of right tunneled pleural catheter. Air was entrained into the chest upon removal Post procedure CxR pending. The patient was instructed to leave the current bandage in place for 48 - 72 hours and then keep clean and dry until healed. There should be no sumbersion (swimming or bathing) for 7 days. I was present during the entire procedure and participated in all aspects of it. Triston Riggs MD 11/19/2024 5:04 PM Addendum: I reviewed his post procedure chest radiographic image and report, dated 11/19/2024. There is a smallapical and loculated basilar PTX. The radiologist note is not available for review. Patient will follow up with me next week with a repeat CxR before the VV. CTG documented in this encounter Plan of Treatment Upcoming Encounters Date Type Department Care Team (Late st Contact Info) Description 12/15/2024 11:15 AM EDT [place] [address] [place] [address] [place] [address] [place] [address] Follow-up 12/16/2024 12:30 PM EDT Office Visit Vascular Surgery [address] [place] [address] Extremity cyanosis [R23.0] 12/16/2024 2:30 PM EDT Office Visit Vascular Surgery [address] [place] [address] Extremity cyanosis [R23.0] 12/16/2024 3:30 PM EDT Office Visit Vascular Surgery [address] [place] [address] Extremity cyanosis [R23.0] 12/22/2024 6:00 PM EDT [facility] Gastroenterology [address] [address] Araseli Wall, LETICIA.DATA CONVERSION OPERATOR [address] [facility] [place] [address] Elevated alkaline phosphatase leve 05/21/2025 2:00 PM EST Office Visit Cardiology [address] [facility] [place] [address] [place] [address] [facility] [place] [address] 6 month follow up Scheduled Orders Name Type Priority Associated Diagnoses Orde r Schedule XR CHEST 2V FRONTAL/LAT Radiology Routine Pleural effusion, not elsewhere classified Once per week for 6 Occurrences starting 11/19/2024 until 12/19/2025, 1 completed documented as of this encounter Goals Goal Patient Goal Type Associated Problems Recent Progress Patient-Stated? Author Blood Pressure < 130/80 Blood Pressure 120/74( 025 10:15 PM EDT) No Sung Hartley MD documented as of this encounter Procedures Procedure Name Priority Date/Time Associated Diagnosis Comments XR CHEST 1V FRONTAL PORT STAT 11/19/2024 5:18 PM EDT RMVL NDWELLG JUANIS PLEURAL CATH W/CUFF 11/19/2024 4:15 PM EDT Pleural effusion documented in this encounter Results * XR CHEST 2V FRONTAL/LAT (11/23/2024 12:33 PM EDT) Anatomical Region Laterality Modality Chest Other 11/23/2024 12:3 3 PM EDT Impressions 11/23/2024 1:44 PM EDT IMPRESSION: See result. Sales Representative Advertising: ALONSO Transcribe Date/Time: Nov 23 2024 1:39P Dictated by : CRISTOBAL ROACH MD This examination was interpreted and the report reviewed and electronically signed by: CRISTOBAL ROACH MD on Nov 23 2024 1:42PM EST Narrative 11/23/2024 1:44 PM EDT * * *Final Report* * * DATE OF EXAM: Nov 23 2024 12:33PM AOX [id number] - XR CHEST 2V FRONTAL/LAT / PROCEDURE REASON: Pleural effusion, not elsewhere classified * * * * Physician Interpretation * * * * EXAMINATION: CHEST RADIOGRAPH (2 VIEW FRONTAL & LATERAL) CLINICAL HISTORY: Pleural effusion, not elsewhere classified MQ: XC2_6 EXAM DATE/TIME: 11/23/2024 12:33 PM COMPARISON: 11/19/2024 RESULT: Lines, tubes, and devices: None. Lungs and pleura: No consolidation. Mild decrease in size of a small right pneumothorax with pleural stripe by approximately 1.5 cm along the right lower lateral chest wall/right costophrenic recess (previously 3.0 cm at a similar level). Trace right pleural effusion. No substantial left pleural effusion. No left pneumothorax. Cardiomediastinal silhouette: Normal cardiomediastinal silhouette. Mild calcification of the aortic arch. Bones and soft tissues: Degenerative changes are present within the thoracic spine. Remote fracture of the left seventh rib. Procedure Note Provider, [facility] - 11/23/2024 * * *Final Report* * * DATE OF EXAM: Nov 23 2024 12:33PM AOX [id number] - XR CHEST 2V FRONTAL/LAT / PROCEDURE REASON: Pleural effusion, not elsewhere classified * * * * Physician Interpretation * * * * EXAMINATION: CHEST RADIOGRAPH (2 VIEW FRONTAL & LATERAL) CLINICAL HISTORY: Pleural effusion, not elsewhere classified MQ: XC2_6 EXAM DATE/TIME: 11/23/2024 12:33 PM COMPARISON: 11/19/2024 RESULT: Lines, tubes, and devices: None. Lungs and pleura: No consolidation. Mild decrease in size of a small right pneumothorax with pleural stripe by approximately 1.5 cm along the right lower lateral chest wall/right costophrenic recess (previously 3.0 cm at a similar level). Trace right pleural effusion. No substantial left pleural effusion. No left pneumothorax. Cardiomediastinal silhouette: Normal cardiomediastinal silhouette. Mild calcification of the aortic arch. Bones and soft tissues: Degenerative changes are present within the thoracic spine. Remote fracture of the left seventh rib. IMPRESSION IMPRESSION: See result. Sales Representative Advertising: PSCB Transcribe Date/Time: Nov 23 2024 1:39P Dictated by : CRISTOBAL ROACH MD This examination was interpreted and the report reviewed and electronically signed by: CRISTOBAL ROACH MD on Nov 23 2024 1:42PM EST us Triston Riggs MD RAD-PAMA Final Result * XR CHEST 1V FRONTAL PORT (11/19/2024 5:18 PM EDT) Anatomical Region Laterality Modality Chest Radiographic Cece ging 11/19/2024 5:18 PM EDT Impressions 11/19/2024 7:04 PM EDT IMPRESSION: See result. Sales Representative Advertising: PSCAc Transcribe Date/Time: Nov 19 2024 6:59P Dictated by : KYLER NICHOLAS MD This examination was interpreted and the report reviewed and electronically signed by: KYLER NICHOLAS MD on Nov 19 2024 7:02PM EST Narrative 11/19/2024 7:04 PM EDT * * *Final Report* * * DATE OF EXAM: Nov 19 2024 5:18PM KENNY [id number] - XR CHEST 1V FRONTAL PORT / PROCEDURE REASON: Pneumothorax * * * * Physician Interpretation * * * * EXAMINATION: CHEST RADIOGRAPH (PORTABLE SINGLE VIEW AP) Exam Date/Time: 11/19/2024 5:18 PM Clinical History: Pneumothorax MQ: XCPMC_6 Comparison: Earlier same day at 1:16 PM RESULT: Lines, tubes, and devices: Interval removal of right Pleurx catheter. Lungs and pleura: Right pneumothorax noted, probably small, with pleural separation measuring about 4 mm superiorly, with loculated or at least partially loculated pocket of gas noted in the region of the costophrenic angle (with probable fluid tracking along the right interlobar fissure/fissures, hydropneumothorax). Minor strandy opacities may relate to atelectasis. Stable left lung. Localized opacity overlying left fourth anterior rib noted and may relate to summation shadow. Focal airspace inflammatory opacities not excluded. Cardiomediastinal silhouette: Stable cardiomediastinal silhouette. Atherosclerotic calcifications of the aorta. Other: . Procedure Note Provider, [facility] - 11/19/2024 * * *Final Report* * * DATE OF EXAM: Nov 19 2024 5:18PM KENNY [id number] - XR CHEST 1V FRONTAL PORT / PROCEDURE REASON: Pneumothorax * * * * Physician Interpretation * * * * EXAMINATION: CHEST RADIOGRAPH (PORTABLE SINGLE VIEW AP) Exam Date/Time: 11/19/2024 5:18 PM Clinical History: Pneumothorax MQ: XCPMC_6 Comparison: Earlier same day at 1:16 PM RESULT: Lines, tubes, and devices: Interval removal of right Pleurx catheter. Lungs and pleura: Right pneumothorax noted, probably small, with pleural separation measuring about 4 mm superiorly, with loculated or at least partially loculated pocket of gas noted in the region of the costophrenic angle (with probable fluid tracking along the right interlobar fissure/fissures, hydropneumothorax). Minor strandy opacities may relate to atelectasis. Stable left lung. Localized opacity overlying left fourth anterior rib noted and may relate to summation shadow. Focal airspace inflammatory opacities not excluded. Cardiomediastinal silhouette: Stable cardiomediastinal silhouette. Atherosclerotic calcifications of the aorta. Other: . IMPRESSION IMPRESSION: See result. Sales Representative Advertising: PSCB Transcribe Date/Time: Nov 19 2024 6:59P Dictated by : KYLER NICHOLAS MD This examination was interpreted and the report reviewed and electronically signed by: KYLER NICHOLAS MD on Nov 19 2024 7:02PM EST us Triston Riggs MD RAD-PAMA Final Result documented in this encounter Visit Diagnoses Diagnosis Pleural effusion, not elsewhere classified- Primary Pleural effusion, not elsewhere classified documented in this encounter Care Teams Process Engineering Manager Relationship Specialty Start [place] [address] [place] [address] PCP - General Family Medicine 12/29/23 Jere Sales MD [address] [address] Referring Gastroenterology 12/05/20 Calin Gotti DO [address] [place] [address] Internal Medicine 10/16/23 documented as of this encounter
--- OUTSIDE RECORDS SUMMARY | 2024-11-19 16:20 | XMS_ITS | Encounter Summary ---
Author Organization [facility] Address [address] [place], [place] [address] Care Team Providers Care Scientific Research Manager Name Role Phone Jere Sales MD Unavailable [phone] Calin Gotti DO Unavailable [phone] Jose Antonio Meyers MD Primary Care Provider [phone] Source Comments In the event this information is protected by the Federal Confidentiality of Alcohol and Drug AbusePatient Records regulations: The Federal rules restrict any use of the information to criminally investigate or prosecute any alcohol or drug abuse patient.[facility] Reason for Visit * Auth/Cert (Routine) Specialty Diagnoses / Procedures Referred By Contac t Referred To Contact ADMITTING Diagnoses Pleural effusion Pleural effusion [J90] Procedures THORACENTESIS NEEDLE/CATH PLEURA W/IMAGING THORACENTESIS NEEDLE OR CATHETER ASPIRATION OF THE PLEURAL SPACE W IMAGING GUIDANCE Admitting [address] [place] [address] Referral ID Status Reason Start Date Expiration Date Visits Re quested Visits Authorized [id number] 1 1 Encounter Details Date Type Department Care Team (Late st Contact Info) Description 11/19/2024 4:20 PM EDT - 11/19/2024 5:20 PM EDT Surgery Admitting [address] [address] Triston Riggs MD [address] [place] [address] REMOVAL TUNNELED PLUERAL CATH WITH CUFF Surgery Details Date/Time Status Location OR Service Patient Class Case Cl ass Case Type Trauma Case? 11/19/2024 4:20 PM Posted [facility] H23 Pulm B-04 Pulmonary Ambulatory Surgery Elective Panel 1 Procedure LRB Anes Op Region Wound Class Comments REMOVAL TUNNELED PLUERAL CATH WITH CUFF Right Local Chest Clean Tier 1 PleurX Removal Surgeon Surgeon Role Service Panel Triston Riggs MD Primary Pulmonary 1 documented in this encounter Social History Tobacco Use Types Packs/Day Years Used Date Smoking Tobacco: Never Smokeless Tobacco: Never Alcohol Use Standard Drinks/Week Comments Yes 0 (1 standard drink = 0.6 oz pure alcohol) socially, no drink since 06/2023 [facility] Utilities Answer Date Recorded In the past 12 months has th e electric, gas, oil, or water [employer] threatened to shut off services in your [...] place to sleep or slept in a senior living (including now)? No 11/21/2023 Area Deprivation Index Answer Date Hari rded National Score (1-100), lower number is lower ri sk 68 12/11/2023 State Score (1-10), lower number is lower risk 5 12/11/2023 Data from: https://www.neighborhoodatlas.medicine.[facility].edu/. Last address used for calculation 2230 12/11/2023 [...] 10 mg by mouth once daily. calcium cbg-mox-E9-Zn-photocopier technician -kian 250 mg-40 mg- 125 unit-3.75mg tab [...] MODIFY PRINTED COPY Patient Name: Bryan Harris AGING DEPARTMENT SUPERVISOR: Triston Riggs MD FISHERIES INSPECTOR: None PRIMARY CARE PHYSICIAN: Jose Antonio Meyers [...] EDT [place] [address] [facility] [place] [address] [place] [address] [place] [address] Follow-up 12/16/2024 12:30 PM EDT Office Visit Vascular Surgery [address] [place] [address] Extremity cyanosis [R23.0] 12/16/2024 2:30 PM EDT Office Visit [facility] [address] [facility] [place] [address] Extremity cyanosis [R23.0] 12/16/2024 3:30 PM EDT Office Visit Vascular Surgery [address] [place] [address] Extremity cyanosis [R23.0] 12/22/2024 6:00 PM EDT [facility] Gastroenterology [address] [id number] Araseli Wall APRN.CLINICAL NEUROPSYCHOLOGIST [address] [place] [address] Elevated alkaline phosphatase leve 05/21/2025 2:00 PM EST Office Visit Cardiology [address] [place] [address] [place] [address] [facility] [place] [address] 6 month follow up Scheduled Orders Name [...] 11/23/2024 1:44 PM EDT IMPRESSION: See result. Windscreen Fitter: PSCB Transcribe Date/Time: Nov 23 2024 1:39P [...] the left seventh rib. Procedure Note Provider, [facility] - 11/23/2024 * * *Final Report* * [...] left seventh rib. IMPRESSION IMPRESSION: See result. Windscreen Fitter: ALONSO Transcribe Date/Time: Nov 23 2024 1:39P Dictated by : CRISTOBAL ROCAH MD This examination was interpreted and the report reviewed and electronically signed by: CRISTOBAL ROACH MD on Nov 23 2024 1:42PM EST us Triston Riggs MD RAD-PAMA Final Result * XR CHEST 1V FRONTAL PORT (11/19/2024 5:18 PM EDT) Anatomical Region Laterality Modality Chest Radiographic Cece ging 11/19/2024 5:18 PM EDT Impressions 11/19/2024 7:04 PM EDT IMPRESSION: See result. Windscreen Fitter: ALONSO Transcribe Date/Time: Nov 19 2024 6:59P Dictated [...] the aorta. Other: . Procedure Note Provider, [facility] [place] - 11/19/2024 * * *Final Report* * [...] aorta. Other: . IMPRESSION IMPRESSION: See result. Windscreen Fitter: PSCB Transcribe Date/Time: Nov 19 2024 6:59P Dictated by : KYLER NICHOLAS MD This examination was interpreted and the report reviewed and electronically signed by: KYLER NICHOLAS MD on Nov 19 2024 7:02PM EST Triston Riggs MD RAD-PAMA Final Result documented in this encounter Visit Diagnoses Diagnosis Pleural effusion Unspecified pleural effusion Pleural effusion, not elsewhere classified- Primary Pleural effusion, not elsewhere classified documented in this encounter Care Teams Scientific Research Manager Relationship Specialty Start [place] [address] [facility] [place] [address] PCP - General Family Medicine 12/29/23 Jere Sales MD [address] [address] Referring Gastroenterology 12/05/20 Calin Gotti DO [address] [place] [address] Internal Medicine 10/16/23 documented as of this encounter
--- OUTSIDE RECORDS SUMMARY | 2024-11-20 09:00 | XMS_ITS | Encounter Summary ---
Author Organization [facility] Address [address] [place] [id number] Care Team Providers Care Bilingual Speech Language Pathologist Name Role Phone Jere Sales MD Unavailable [phone] Calin Gotti DO Unavailable [phone] Jose Antonio Meyers MD Primary Care Provider [phone] Source Comments In the event this information is protected by the Federal Confidentiality of Alcohol and Drug AbusePatient Records regulations: The Federal rules restrict any use of the information to criminally investigate or prosecute any alcohol or drug abuse patient.[facility] Reason for Referral * Outpatient Procedure (Routine) - Authorized Specialty Diagnoses / Procedures Referred By Contac t Referred To [facility] Diagnoses Extremity cyanosis Procedures PVR LEG [facility] NON-INVASIVE PHYSIOLOGIC STUDY EXTREMITY 3 [place] [address] [place] [address] Phone: tel: fax: [facility] [address] [address] Referral ID Status Reason Start Date Expiration Date Visits Requested Visits Authorized [id number] Authorized Auto-Generat ed Referral 11/20/2024 11/20/2025 1 1 * Outpatient Procedure (Routine) - Closed Specialty Diagnoses / Procedures Referred By Contac t Referred To [facility] Diagnoses Extremity cyanosis Procedures ECHO ECHO TTHRC R-T 2D W/WOM-MODE COMPL SPEC&COLR D Zac Mendiola [place] [id number] [place] [address] Phone: tel: fax: [address] [address] Referral ID Status Reason Start Date Expiration Date V isits Requested Visits Authorized [id number] Closed Auto-Generate d Referral 11/20/2024 11/20/2025 1 1 * Outpatient Procedure (Routine) - Authorized Specialty Diagnoses / Procedures Referred By Contac t Referred To [facility] Diagnoses Extremity cyanosis Procedures US LEG VEIN DVT [facility] DUP-SCAN XTR VEINS COMPLETE BILATERAL STUDY Zac Mendiola [place] [id number] [place] [address] Phone: tel: fax: [address] [address] Referral ID Status Reason Start Date Expiration Date Visits Requested Visits Authorized [id number] Authorized Auto-Generat ed Referral 11/20/2024 11/20/2025 1 1 * Outpatient Procedure (Routine) - Authorized Specialty Diagnoses / Procedures Referred By Conteaston t Referred To [facility] Diagnoses Extremity cyanosis Procedures US VENOUS INCOMPETENCY [facility] DUP-SCAN XTR VEINS COMPLETE [place] [address] [facility] [place] [place] [address] Phone: tel: fax: [facility] [place] [address] [place] [address] Referral ID Status Reason Start Date Expiration Date Visits Requested Visits Authorized [id number] Authorized Auto-Generat ed Referral 11/20/2024 11/20/2025 1 1 Reason for Visit * Reason Comments New Patient Encounter Details Date Type Department Care Team (Late st Contact Info) Description 11/20/2024 9:00 AM EDT Office Visit Cardiology [address] [place] [address] [place] [address] [facility] [place] [address] Extremity cyanosis (Primary Dx) Social History Tobacco Use Types Packs/Day Years Used Date Smoking Tobacco: Never Smokeless Tobacco: Never Alcohol Use Standard Drinks/Week Comments Yes 0 (1 standard drink = 0.6 oz pure alcohol) socially, no drink since 06/2023 [facility] Utilities Answer Date Recorded In the past 12 months has th e [employer], gas, oil, or water [employer] threatened to shut off services in your [...] place to sleep or slept in a fdc (including now)? No 11/21/2023 Area Deprivation Index Answer Date Hari rded National Score (1-100), lower number is lower ri sk 68 12/11/2023 State Score (1-10), lower number is lower risk 5 12/11/2023 Data from: https://www.neighborhoodatlas.medicine.[facility].edu/. Last address used for calculation 2230 12/11/2023 Sex and Gender Information Value Date Recorded Sex Assigned at Not on file Legal Sex Male 12:24 PM EDT Gender Identity Not on file Sexual Orientation Not on file documented as of this encounter Last Filed Vital Signs Vital Sign Reading Time Taken Comments Blood Pressure 108/68 11/20/2024 9:04 AM EDT Pulse 64 11/20/2024 9:04 AM EDT Temperature - - Respiratory Rate - - Oxygen Saturation 99% 11/20/2024 9:04 AM EDT Inhaled Oxygen Concentration - - Weight 78.5 kg (173 lb) 11/20/2024 9:04 AM EDT Height 182.9 cm (6') 11/20/2024 9:04 AM EDT Body Mass Index 23.46 11/20/2024 9:04 AM EDT documented in this encounter Functional [...] documented in this encounter Progress Notes * Zac Mendiola MD - 11/20/2024 9:23 AM EDT Images from the original note were not included. [facility] [place] April Baltazar Department of Cardiovascular Medicine SECTION OF INTERVENTIONAL CARDIOLOGY OUTPATIENT VISIT DATE 11/20/2024 OUTPATIENT VISIT TYPE New PRIMARY CARE PHYSICIAN: Jose Antonio Meyers [address] [place] [address] REFERRING PHYSICIAN: No referring provider defined for this encounter. Recording using [employer] software for draft documentation of the visit was discussed with the patient/authorized scheduling representative; all questions welcomed and answered. Patient/authorized scheduling representative agreed to proceed HISTORY OF PRESENT ILLNESS: The patient is a 74-year-old male with a history of pleural effusion, presenting for evaluation of lower extremity cyanosis and edema. The patient reports that his legs are turning blue and he is experiencing significant swelling in his abdomen, legs, and feet. He notes a discrepancy between his waist circumference (36 inches) and abdominal girth (44 inches), attributing this to fluid retention. He has been hospitalized twice for a bdominal and lower extremity edema and is currently experiencing his third episode. He reports dyspnea when walking, carrying objects, or climbing stairs, but denies orthopnea. He underwent pleural effusion surgery a year ago, and a pleural catheter was removed yesterday. Despite losing 20 pounds since starting metolazone and torsemide, he notes that the swelling has not significantly decreased. He denies any history of smoking. He has consulted multiple specialists, including rheumatology, pulmonology, gastroenterology, and nephrology, but the etiology of his fluid retention remains undetermined. He is awaiting evaluation by hepatology. Previous evaluations for cardiac issues, malignancy, and lupus have been negative. An e chocardiogram performed approximately a year ago reportedly showed normal cardiac function. He has a history of bilateral knee replacements. He was previously on antihypertensive medication but discontinued it over a year ago when diureticswere initiated for fluid management. He has a family history of cardiovascular disease, including an aneurysm in his grandfather and a myocardial infarction in his father at age 72. He is currently taking metolazone 5 mg and torsemide 100 mg. PAST MEDICAL HISTORY Diagnosis Date GERD (gastroesophageal [...] TPC insertion. TOTAL KNEE REPLACEMENT Right 06/25/2016 SOCIAL HISTORY Social History Tobacco Use Smoking status: Never Smokeless tobacco: Never Vaping Use Vaping status: Never Used Substance Use Topics Alcohol use: Yes Comment: socially, no drink since 06/2023 Drug use: Never FAMILY HISTORY Problem Relation Age of Onset Heart Father Colon Cancer No Family History ALLERGIES: ALLERGIES Allergen Reactions Tramadol Mental Status Change MEDICATIONS: amoxicillin-clavulanate potassium (AUGMENTIN) 875-125 mg per tablet Take 1 tablet by mouth every 12hours for 6 days. torsemide (DEMADEX) 100 mg tablet Take 1 tablet by mouth once daily. famotidine (PEPCID) 20 mg tablet Take 1 tablet by mouth two times a day. metOLazone (ZAROXOLYN) 5 mg tablet Take 1 tablet by mouth once daily. quiNINE 324 mg capsule Take 1 capsule by mouth twice daily potassium chloride (K-TAB) 20 mEq TbER 2 tablets by ORAL/FEEDING TUBE route three times a day. ascorbic acid, vitamin C, (VITAMIN C) 500 mg tablet Take 1,000 mg by mouth once daily. multivit-min/ferrous fumarate (MULTI VITAMIN ORAL) Take 1 tablet by mouth once daily. guaifenesin/dextromethorphan (MUCINEX DM ORAL) Take by mouth two times a day. loratadine (CLARITIN) 10 mg tablet Take 10 mg by mouth once daily. 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 allopurinol (ZYLOPRIM) 300 mg tablet Take 300 mg by mouth once daily. atorvastatin (LIPITOR) 10 mg tablet Take 1 tablet by mouth once daily. diclofenac (VOLTAREN) 1 % topical gel REVIEW OF SYSTEMS: GENERAL: negative for: fevers, chills, and change in weight HEENT: negative for: headaches, hearing loss, difficulty swallowing, visual changes, nose bleeds, dentures, own teeth SKIN: rashes, lesions, and ulcers RESPIRATORY: SEE HPI CARDIOVASCULAR: See HPI GASTROINTESTINAL: negative for: abdominal pain, nausea, vomiting, difficulty or painful swallowing,and melanotic stools GENITOURINARY: negative for: dysuria, frequency, nocturia, and male potency MUSCULOSKELETAL: negative for: joint pain, joint swelling, muscle pain or myalgias, and pain with walking NEUROLOGIC: negative for: numbness, tingling, and sensation of pins and needles HEMATOLOGY: negative for: bruising easily, prolonged bleeding, anemia, and cancer ENDOCRINE: negative for: cold or heat intolerance, polyuria, polydipsia, goiter, diabetes, and thyroid disease PSYCH: negative for: sleep disturbance, mood disorders, and recent psychosocial stressors PHYSICAL EXAMINATION: 11/20/24 0904 BP: 108/68 BP Site: Left Arm BP Position: Sitting BP Cuff Size: Regular Adult Pulse: 64 SpO2: 99% Weight: 78.5 kg (173 lb) Height: 182.9 cm (6') General: Alert & oriented, no acute distress. Skin: Normal. HEENT: Pupils equal, round. Oral cavity, oropharynx clear. Neck: Supple, no mass. Breast: Deferred. Respiratory: Clear to auscultation bilaterally. Cardiovascular: Jugular venous pressure normal. Regular rate and rhythm, normal S1 and S2, no murmurs or added sounds. Abdomen: Soft, non-tender, non-distended, no masses palpable, no hepatosplenomegaly, normal bowel sounds. Genitourinary: Deferred. MSK: No joint swelling, erythema, or tenderness. Extremities: Cyanosis noted in lower extremities. No clubbing or edema. CARDIOVASCULAR MEDICINE TESTING: Labs: Cr 1.38, Hgb 12s Imaging: Ultrasound: Evidence of pleural effusion, leading to fluid drainage. Tests: Stress test: No significant abnormal findings. I have personally reviewed the Electrocardiogram, Laboratory Testing, Echocardiogram, and CT Chest Scan. Last ECHO Result Conclusion ECHO Collected: 03/26/2024 2:34 PM (Final result) Impression: CONCLUSIONS: - Exam indication: Pericardial Disease - The left ventricle is normal in size. Left ventricular systolic function is normal. EF = 55 ?? 5% (visual est.) - The right ventricle is normal in size. Right ventricular systolic function is normal. - The patient has not had a prior CC echocardiographic exam for comparison. * * * Final * * * Last EKG Result Conclusion ECG COMPLETE Collected: 11/12/2024 1:24 PM (Preliminary result) Impression: SINUS RHYTHM WITH OCCASIONAL PREMATURE VENTRICULAR COMPLEXES NONSPECIFIC T WAVE ABNORMALITY ABNORMAL ECG Last CT Result Conclusion CT CHEST W IVCON Exam End: 03/17/2024 [...] MD on Mar 21 2024 4:33PM EST IMPRESSION / PLAN AND RECOMMENDATIONS:: Mr. Harris is a 74 year old male with BLE swelling and cyanosis resolved with feet elevation Extremity cyanosis (primary encounter diagnosis) 1. Extremity cyanosis (R23.0) Likely due to venous insufficiency. Patient has significant fluid retention and edema in the lower extremities, with a history of pleural effusion and abdominal fluid retention. Recent weight loss of20 lbs attributed to diuretic therapy with torsemide 100 mg and metolazone 5 mg. No evidence of pulmonary involvement on auscultation. Previous echocardiogram showed normal cardiac function, but it was performed a year ago. - Ordered repeat echocardiogram to assess current cardiac function. - Ordered venous Doppler ultrasound to rule out deep vein thrombosis and assess venous competence. - Recommended use of compression stockings to improve venous return, despite difficulty in application due to edema. - Advised patient to elevate legs and rest to facilitate fluid drainage. - Scheduled follow-up in 6 months to reassess condition and review diagnostic results. -Heart healthy diet counseling performed -age and risk appropriate malignancy screening -smoking cessation counseling performed for 3-10 minutes -if patient has recurrent or worsening symptoms, patient is instructed to come to the ED or call 911 -patient understands and agrees with the plan CONTACT INFORMATION: Zac Mendiola M.D. Section of Interventional Cardiology & Endovascular Interventions April Baltazar Department of Cardiovascular Medicine [facility] [place] [facility] Office Office Pager [phone] documented in this encounter Plan of Treatment Upcoming Encounters Date Type Department Care Team (Late st Contact Info) Description 12/15/2024 11:15 AM EDT [place] [address] [place] [address] [place] [address] [place] [address] Follow-up 12/16/2024 12:30 PM EDT Office Visit Vascular Surgery [address] [place] [address] Extremity cyanosis [R23.0] 12/16/2024 2:30 PM EDT Office Visit [facility] [address] [facility] [place] [address] Extremity cyanosis [R23.0] 12/16/2024 3:30 PM EDT Office Visit Vascular Surgery [address] [place] [address] Extremity cyanosis [R23.0] 12/22/2024 6:00 PM EDT [facility] Gastroenterology [address] [id number] Araseli Wall APRN.[employer]ORER [employer] [address] [place] [address] Elevated alkaline phosphatase leve 05/21/2025 2:00 PM EST Office Visit Cardiology [address] [place] [address] [place] [address] [facility] [place] [place] [address] 6 month follow up Scheduled Orders Name Type Priority Associated Diagnoses Orde r Schedule US VENOUS INCOMPETENCY [facility] Vascular Lab Routine Extremity cyanosis 1 Occurrences starting 11/20/2024 until 11/20/2025 US LEG VEIN DVT [facility] Vascular Lab Routine Extremity cyanosis 1 Occurrences starting 11/20/2024 until 11/20/2025 PVR LEG [facility] LAB Vascular Lab Routine Extremity cyanosis 1 Occurrences starting 11/20/2024 until 11/20/2025 documented as of this encounter Goals Goal Patient Goal Type Associated Problems Recent Progress Patient-Stated? Author Blood Pressure < 130/80 Blood Pressure 120/74( 025 10:15 PM EDT) No Sung Hartley MD documented as of this encounter Results * ECHO (11/23/2024 9:16 AM EDT) 11/23/2024 9:16 AM EDT Impression [facility] [place] - 11/23/2024 11:30 AM EDT CONCLUSIONS: - Exam indication: Lower extremity cyanosis; Fluid retention; History of pleural effusions - The left ventricle is normal in size. Left ventricular systolic function is normal. EF = 52 5% (2D biplane) - The right ventricle is normal in size. Right ventricular systolic function is normal. - Estimated right atrial pressure is 15 mmHg based on IVC assessment. - Exam was compared with the prior echocardiographic exam performed on 03/26/2024 ([facility]). * * * Final * * * Narrative [facility] - 11/23/2024 11:30 AM EDT Echocardiography Report: Transthoracic Echo [place] [facility] Office Date of service: 11/23/2024 9:16:58 AM SURGEON Ordering physician: ZAC MENDIOLA Exam indication: Lower extremity cyanosis; Fluid retention; History of pleural effusions Technologist: Lilia Pineda Interpreting physician: Aung Emerson MD PATIENT: Name: BRYAN HARRIS : 1950 Age: 74 years Gender: M Primary rhythm: sinus. Height: 182.90 cm BSA: 2.00 m Weight: 78.47 kg BMI: 23.5 kg/m Heart rate 81 bpm Blood pressure 113/76 mmHg Color Doppler was utilized to interrogate the cardiac valves assessed and spectral Doppler was utilized to determine the flow velocities and pressure gradients reported in this exam. MEASUREMENTS: Value Indexed Normal Max aortic dimension 3.6 cm Ao < 3.8 LV ID (diastole) 4.5 cm (2D) 2.25 cm/m LV ID (systole) 3.5 cm (2D) 1.75 cm/m IVS, leaflet tips 1.0 cm (2D) Posterior wall thickness 1.2 cm (2D) Left ventricular mass 175 g (2D) 88 g/m LV stroke volume 39 ml (2D biplane) LV end diastolic volume 75 ml (2D biplane) 37.7 ml/m 34<=EDVi<75 LV end systolic volume 36 ml (2D biplane) 18.1 ml/m Ejection Fraction 52 % (2D biplane) EF > 52 FINDINGS: LEFT VENTRICLE The left ventricle is normal in size. Left ventricular systolic function is normal. Mitral annular lateral E/e': 4.6. Mitral annular septal E/e': 4.6. Wall Motion: All scored segments are normal. RIGHT VENTRICLE The right ventricle is normal in size. Right ventricular systolic function is normal. RV systolic tissue Doppler velocity is 13.8 cm/s. Tricuspid annular displacement is 1.3 cm. Estimated right atrial pressure is 15 mmHg based on IVC assessment. RIGHT ATRIUM Inferior Vena Cava: The inferior vena cava appears dilated measuring 2.6 cm. The vessel decreases less than 50 percent with inspiration. MITRAL VALVE There is trace mitral valve regurgitation. There is mild thickening. The pressure half time is 52 msec. The peak mitral E/A ratio is 0.90. The average mitral E/e' ratio is 4.6. The mitral flow deceleration time is 180 msec. TRICUSPID VALVE There is trace tricuspid valve regurgitation. There is no thickening. AORTIC VALVE There is mild (1+) aortic valve regurgitation. Tricuspid aortic valve. There is mild thickening. The peak gradient is 4 mmHg (peak velocity = 103.0 cm/s). PULMONIC VALVE The pulmonic valve was not seen or not interrogated. There is no pulmonic valve regurgitation. AORTA The visualized aorta is normal in size. Measurements - Sinus: 3.6 cm. Mid ascending aorta 3.1 cm. PULMONARY ARTERIES The pulmonary arteries are unseen or not interrogated. PERICARDIUM There is no pericardial effusion. There is an epicardial fat pad. Zac Mendiola MD ECHO Final Result [facility] [address] [place] [address] documented in this encounter Visit Diagnoses Diagnosis Extremity cyanosis- Primary Other peripheral vascular disease documented in this encounter Care Teams Bilingual Speech Language Pathologist Relationship Specialty Start [place] [address] [place] [address] PCP - General Family Medicine 12/29/23 Jere Sales MD [address] [address] Referring Gastroenterology 12/05/20 Calin Gotti DO [address] [place] [address] Internal Medicine 10/16/23 documented as of this encounter
--- OUTSIDE RECORDS SUMMARY | 2024-11-23 10:23 | XMS_ITS | Encounter Summary ---
Author Organization [facility] Address [address] [place] [address] Care Team Providers Care Wrapper Leaf Inspector Name Role Phone Jere Sales MD Unavailable [phone] Calin Gotti DO Unavailable [phone] Jose Antonio Meyers MD Primary Care Provider [phone] Source Comments In the event this information is protected by the Federal Confidentiality of Alcohol and Drug AbusePatient Records regulations: The Federal rules restrict any use of the information to criminally investigate or prosecute any alcohol or drug abuse patient.[facility] Reason for Visit * Reason Comments Radio Gen A21 Encounter Details Date Type Department Care Team (Latest Contact Info) Description 11/23/2024 10:23 AM EDT - 11/23/2024 1:59 PM EDT Hospital Encounter Radiology [address] [address] Pleural effusion, not elsewhere classified [J90] Discharge Disposition: Home Social History Tobacco Use Types Packs/Day Years Used Date Smoking Tobacco: Never Smokeless Tobacco: Never Alcohol Use Standard Drinks/Week Comments Yes 0 (1 standard drink = 0.6 oz pure alcohol) socially, no drink since 06/2023 [facility] Utilities Answer Date Recorded In the [...] place to sleep or slept in a [place] health care facility (including now)? No 11/21/2023 Area Deprivation Index Answer Date Hari rded National Score (1-100), lower number is lower ri sk 68 12/11/2023 State Score (1-10), lower number is lower risk 5 12/11/2023 Data from: https://www.neighborhoodatlas.medicine.[facility].edu/. Last address used for calculation [...] this encounter Medications at Time of Discharge amoxicillin-clavu lanate potassium (AUGMENTIN) 875-125 mg per tablet Take 1 tablet by mouth every 12 hours for 6 days. 12 tablet 11/19/2024 5:59 PM EDT 11/19/2024 11/25/2024 torsemide (DEMADEX) 100 mg tabletIndications :Recurrent pleural [...] 10 mg by mouth once daily. 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 diclofenac (VOLTAREN) 1 % topical gel 01/22/2024 allopurinol (ZYLOPRIM) 300 mg tablet Take 300 mg by mouth once daily. 10/21/2020 atorvastatin (LIPITOR) 10 mg tablet Take 1 tablet by mouth once daily. 10/31/2020 documented as of this encounter Progress Notes * Karsten Lagos RT(R) - 11/23/2024 11:40 AM EDT Radiology Service Progress Note PATIENT NAME: Bryan Harris DATE OF SERVICE: November 23, 2024 TIME: 12:31 PM PATIENT IDENTITY VERIFICATION COMPLETED USING TWO [...] PATIENT PRESENTS WITH AN IMPLANTABLE OR ATTACHED WEATHER STRIPPER: No RADIOLOGY DEPARTMENT: General X-ray: Exam(s) Completed: Chest X-Ray PERIPHERAL IV DATA: Not applicable SIGNED BY: RT Franca(Sandee) November 23, 2024 12:31 PM documented in this encounter Plan of Treatment Upcoming Encounters Date Type Department Care Team (Late st Contact Info) Description 12/15/2024 11:15 AM EDT [place] [address] [facility] [place] [address] [place] [address] [facility] [place] [address] Follow-up 12/16/2024 12:30 PM EDT Office Visit Vascular Surgery [address] [place] [address] Extremity cyanosis [R23.0] 12/16/2024 2:30 PM EDT Office Visit Vascular Surgery [address] [place] [address] Extremity cyanosis [R23.0] 12/16/2024 3:30 PM EDT Office Visit Vascular Surgery [address] [place] [address] Extremity cyanosis [R23.0] 12/22/2024 6:00 PM EDT [facility] Gastroenterology [address] [address] Araseli Wall, LETICIA.DIRECTOR OF STRATEGIC INITIATIVES [address] [place] [address] Elevated alkaline phosphatase leve 05/21/2025 2:00 PM EST Office Visit Cardiology [address] [place] [address] [place] [address] [facility] [place] [address] 6 month follow up documented as of this encounter Goals Goal Patient Goal Type Associated Problems Recent Progress Patient-Stated? Author Blood Pressure < 130/80 Blood Pressure 120/74( 025 10:15 PM EDT) No Sung Hartley MD documented as of this encounter Procedures Procedure Name Priority Date/Time Associated Diagnosis Comments XR CHEST 2V FRONTAL/LAT Routine 11/23/2024 12:33 PM EDT Pleural effusion, not elsewhere classified documented in this encounter Results * XR CHEST 2V FRONTAL/LAT (11/23/2024 12:33 PM EDT) Anatomical Region Laterality Modality Chest Other 11/23/2024 12:3 3 PM EDT Impressions 11/23/2024 1:44 PM EDT IMPRESSION: See result. Forming Machine Adjuster: ALONSO Transcribe Date/Time: Nov 23 2024 1:39P [...] seventh rib. Procedure Note Provider, [facility] [place] - 11/23/2024 * * *Final Report* * [...] left seventh rib. IMPRESSION IMPRESSION: See result. Forming Machine Adjuster: PSCB Transcribe Date/Time: Nov 23 2024 1:39P Dictated by : CRISTOBAL ROACH MD This examination was interpreted and the report reviewed and electronically signed by: CRISTOBAL ROACH MD on Nov 23 2024 1:42PM EST us Triston Riggs MD RAD-PAMA Final Result documented in this encounter Visit Diagnoses Diagnosis Pleural effusion, not elsewhere classified documented in this encounter Care Teams Wrapper Leaf Inspector Relationship Specialty Start [place] [address] [facility] [place] [address] PCP - General Family Medicine 12/29/23 Jere Sales MD [address] [address] Referring Gastroenterology 12/05/20 Calin Gotti DO [address] [place] [address] Internal Medicine 10/16/23 documented as of this encounter
--- OUTSIDE RECORDS SUMMARY | 2024-11-23 12:00 | XMS_ITS | Encounter Summary ---
Author Organization [facility] Address [address] [place] [id number] Care Team Providers Care Tea Bag Machine Tender Name Role Phone Jere Sales MD Unavailable [phone] Calin Gotti DO Unavailable [phone] Jose Antonio Meyers MD Primary Care Provider [phone] Source Comments In the event this information is protected by the Federal Confidentiality of Alcohol and Drug AbusePatient Records regulations: The Federal rules restrict any use of the information to criminally investigate or prosecute any alcohol or drug abuse patient.[facility] Reason for Visit * Reason Comments Effusion Encounter Details Date Type Department Care Team (Late st Contact Info) Description 11/23/2024 12:00 PM EDT Office Visit Pulmonary Medicine [address] [place] [address] Triston Riggs MD [address] [place] [id number] Pleural effusion (Primary Dx); Pleuritis; Pericardial effusion (noninflammatory) (HCC); Lymphocytic colitis; Other ascites Social History Tobacco Use Types Packs/Day Years Used Date Smoking Tobacco: Never Smokeless Tobacco: Never Alcohol Use Standard Drinks/Week Comments Yes 0 (1 standard drink = 0.6 oz pure alcohol) socially, no drink since 06/2023 [facility] Utilities Answer Date Recorded In the past 12 months has th e Backyard, gas, oil, or water [employer] threatened to shut off services in your [...] is lower risk 5 12/11/2023 Data from: https://www.neighborhoodatlas.medicine.[facility].edu/. Last address used for calculation [...] the original note were not included. [facility] [place] [facility] Consultation CC: Persistent RIGHT pleural effusion Bryan Harris is a 74 year old male sent by Dr. STEPHANE Douglas MD for evaluation of persistent RIGHT pleural effusion. My final recommendations will be communicated to the requesting health care provider by way of the shared medical record for internal providers or letter via the [employer] for external providers. Assessment and [...] He will complete course of oral antibiotics. [place], [place] is home care provider. He continues [...] 10 mg by mouth once daily. calcium cdj-ybq-U8-Zn-coppersmith apprentice-kian 250 mg-40 mg- 125 unit-3.75mg tab Take [...] UltraSens C-Reactive Protein <3.1 mg/L 13.2 (H) [facility] Reference Range & Units Most Recent [...] 1.21 0.95 (L) 0.80 (L) 0.91 (L) [place]% % 7.6 11/12/24 13:30 11.7 12.9 7.3 7.6 Abs [place] <0.87 k/uL 0.67 11/12/24 13:30 0.80 1.03 [...] 36 % 39 80 (H) 80 (H) [place]%, BF % 6 Macro%, BF 64 - [...] with more than 50% of the total cedl-pg-rwyv time of the visit in counseling / coordination of care. Triston Riggs M.D. Staff, Interventional Pulmonology. Pulmonary, Allergy & Critical Care Medicine [facility] documented in this encounter Plan of Treatment Upcoming Encounters Date Type Department Care Team (Late st Contact Info) Description 12/15/2024 11:15 AM EDT [place] [address] [place] [address] [place] [address] [place] [address] Follow-up 12/16/2024 12:30 PM EDT Office Visit Vascular Surgery [address] [facility] [place] [address] Extremity cyanosis [R23.0] 12/16/2024 2:30 PM EDT Office Visit Vascular Surgery [address] [place] [address] Extremity cyanosis [R23.0] 12/16/2024 3:30 PM EDT Office Visit Vascular Surgery [address] [place] [address] Extremity cyanosis [R23.0] 12/22/2024 6:00 PM EDT [facility] Gastroenterology [address] [address] Araseli Wall APRN.MOVIE WRITER [address] [place] [address] Elevated alkaline phosphatase leve 05/21/2025 2:00 PM EST Office Visit Cardiology [address] [place] [address] [place] [address] [facility] [place] [address] 6 month follow up documented as of [...] ascites documented in this encounter Care Teams Tea Bag Machine Tender Relationship Specialty Start [place] [address] [facility] [place] [address] PCP - General Family Medicine 12/29/23 Jere Saels MD [address] [address] Referring Gastroenterology 12/05/20 Calin Gotti DO [address] [place] [address] Internal Medicine 10/16/23 documented as of this encounter
--- OUTSIDE RECORDS SUMMARY | 2024-11-23 14:00 | XMS_ITS | Encounter Summary ---
Author Organization [facility] Address [address] [place] [address] Care Team Providers Care Accounting Director Name Role Phone Jere Sales MD Unavailable [phone] Calin Gotti DO Unavailable [phone] Jose Antonio Meyers MD Primary Care Provider [phone] Source Comments In the event this information is protected by the Federal Confidentiality of Alcohol and Drug AbusePatient Records regulations: The Federal rules restrict any use of the information to criminally investigate or prosecute any alcohol or drug abuse patient.[facility] Reason for Visit * Diagnostic Procedure Only (Routine) - Closed Specialty Diagnoses / Procedures Referred By Contac t Referred To Contact [facility] Diagnoses Hepatomegaly Procedures US ELASTOGRAPHY LIVER ULTRASOUND ELASTOGRAPHY [place] [address] [place] [address] Phone: tel: fax: [place] [phone] Referral ID Status Reason Start Date Expiration Date V isits Requested Visits Authorized [id number] Closed Auto-Generate d Referral 11/13/2024 12/13/2025 1 1 Encounter Details Date Type Department Care Team (Latest Contact Info) Description 11/23/2024 2:00 PM EDT - 11/23/2024 11:59 PM EDT Hospital Encounter Radiology [address] [place] [address] Hepatomegaly [R16.0] Discharge Disposition: Home Social History Tobacco Use Types Packs/Day Years Used Date Smoking Tobacco: Never Smokeless Tobacco: Never Alcohol Use Standard Drinks/Week Comments Yes 0 (1 standard drink = 0.6 oz pure alcohol) socially, no drink since 06/2023 [facility] Utilities Answer Date Recorded In [...] place to sleep or slept in a penitentiary (including now)? No 11/21/2023 Area Deprivation Index Answer Date Hari rded National Score (1-100), lower number is lower ri sk 68 12/11/2023 State Score (1-10), lower number is lower risk 5 12/11/2023 Data from: https://www.neighborhoodatlas.medicine.[facility]/. Last address used for calculation [...] 10 mg by mouth once daily. calcium uyz-pds-S9-Zn-photocopy operator -kian 250 mg-40 mg- 125 unit-3.75mg tab Take by mouth. diclofenac (VOLTAREN) 1 % topical gel 01/22/2024 allopurinol (ZYLOPRIM) 300 mg tablet Take 300 mg by mouth once daily. 10/21/2020 atorvastatin (LIPITOR) 10 mg tablet Take 1 tablet by mouth once daily. 10/31/2020 documented as of this encounter Plan of Treatment Upcoming Encounters Date Type Department Care Team (Late st Contact Info) Description 12/15/2024 11:15 AM EDT Office [place] [address] [place] [address] [place] [address] [address] [id number] Follow-up 12/16/2024 12:30 PM EDT Office Visit Vascular Surgery [address] [place] [address] Extremity cyanosis [R23.0] 12/16/2024 2:30 PM EDT Office Visit Vascular Surgery [address] [place] [address] Extremity cyanosis [R23.0] 12/16/2024 3:30 PM EDT Office Visit Vascular Surgery [address] [place] [address] Extremity cyanosis [R23.0] 12/22/2024 6:00 PM EDT [facility] Gastroenterology [address] [address] Araseli Wall APRN.BARBERING TEACHER [address] [place] [address] Elevated alkaline phosphatase leve 05/21/2025 2:00 PM EST Office Visit Cardiology [address] [place] [address] [place] [address] [place] [address] 6 month follow up Pending Results Name Type Priority Associated Diagnoses Date /Time US ABD RIGHT UPPER QUADRANT Radiology Routine Hepatomegaly 11/23/2024 3:05 PM EDT US ELASTOGRAPHY LIVER Radiology Routine Hepatomegaly 11/23/2024 3:05 PM EDT documented as of this encounter Goals Goal Patient Goal Type Associated Problems Recent Progress Patient-Stated? Author Blood Pressure < 130/80 Blood Pressure 120/74( 025 10:15 PM EDT) No Sung Hartley MD documented as of this encounter Visit Diagnoses Diagnosis Hepatomegaly documented in this encounter Care Teams Accounting Director Relationship Specialty [place] [address] [facility] [place] [address] PCP - General Family Medicine 12/29/23 Jere Sales MD [address] [address] Referring Gastroenterology 12/05/20 Calin Gotti DO [address] [place] [address] Internal Medicine 10/16/23 documented as of this encounter
--- OUTSIDE RECORDS SUMMARY | 2024-11-24 16:47 | XMS_ITS | Encounter Summary ---
Author Organization [facility] Address [address] [place] [address] Care Team Providers Care Advisory Software Engineer Name Role Phone Jere Sales MD Unavailable [phone] Calin Gotti DO Unavailable [phone] Jose Antonio Meyers MD Primary Care Provider [phone] Source Comments In the event this information is protected by the Federal Confidentiality of Alcohol and Drug AbusePatient Records regulations: The Federal rules restrict any use of the information to criminally investigate or prosecute any alcohol or drug abuse patient.[facility] Encounter Details Date Type Department Care Team (Latest Contact Info) Description 01/07/2024 Transcribe Orders Respiratory [place] [address] [place] [address] Louise Douglas MD [address] [place], [place] [address] Chronic bronchitis, unspecified chronic bronchitis type (HCC) (Primary Dx) Social History Tobacco Use Types Packs/Day Years Used Date Smoking Tobacco: Never Smokeless Tobacco: Never [facility] Utilities Answer Date Recorded In the past 12 months has th e electric, gas, oil, or water company threatened to shut off services in your home? No 11/21/2023 Hunger Vital Sign Answer Date Recorded Within [...] place to sleep or slept in a mcc (including now)? No 11/21/2023 Area Deprivation Index Answer Date Hari rded National Score (1-100), lower number is lower ri sk 68 12/11/2023 State Score (1-10), lower number is lower risk 5 12/11/2023 Data from: https://www.neighborhoodatlas.medicine.[employer].edu/. Last address used for calculation 2230 12/11/2023 [...] Orlando Welsh RN documented in this encounter Plan of Treatment Upcoming Encounters Date Type Department Care Team (Late st Contact Info) Description 12/15/2024 11:15 AM [place]T [place] [address] [facility] [address] [place] [address] [place] [address] Follow-up 12/16/2024 12:30 PM EDT Office Visit Vascular Surgery [address] [place] [address] Extremity cyanosis [R23.0] 12/16/2024 2:30 PM EDT Office Visit Vascular Surgery [address] [place] [address] Extremity cyanosis [R23.0] 12/16/2024 3:30 PM EDT Office Visit Vascular Surgery [address] [place] [address] Extremity cyanosis [R23.0] 12/22/2024 6:00 PM EDT [facility] [address] [id number] Araseli Wall APRN.SKI TOW OPERATOR [address] [place] [address] Elevated alkaline phosphatase leve 05/21/2025 2:00 PM EST Office Visit Cardiology [address] [place] [address] [place] [address] [place] [address] 6 month follow up documented as of this encounter Goals Goal Patient Goal Type Associated Problems Recent Progress Patient-Stated? Author Blood Pressure < 130/80 Blood Pressure 120/74( 025 10:15 PM EDT) No Sung Hartley MD documented as of this encounter Results * XR CHEST 2V FRONTAL/LAT (03/17/2024 8:41 AM EDT) Anatomical Region Laterality Modality Chest Other 03/17/2024 8:41 AM EDT Impressions 03/19/2024 4:45 PM EDT IMPRESSION: Small right effusion noted slightly increased. Right-sided Pleurx catheter present. Sheeting Puller: PSCB Transcribe Date/Time: Mar 19 2024 4:42P Dictated by : KALEY CHAMBERS MD This examination was interpreted and the report reviewed and electronically signed by: KALEY CHAMBERS MD on Mar 19 2024 4:43PM EST Narrative 03/19/2024 4:45 PM EDT * * *Final Report* * * DATE OF EXAM: Mar 17 2024 8:41AM [id number] - XR CHEST 2V FRONTAL/LAT / PROCEDURE REASON: Chronic bronchitis, unspecified chronic bronchitis type (HCC) * * * * Physician Interpretation * * * * EXAMINATION: CHEST RADIOGRAPH (2 VIEW FRONTAL & LATERAL) CLINICAL HISTORY: Chronic bronchitis, unspecified chronic bronchitis type (HCC) MQ: XC2_6 EXAM DATE/TIME: 03/17/2024 8:41 AM COMPARISON: 02/04/2024 RESULT: Lines, tubes, and devices: A Pleurx catheter travels to the right posterior hemithorax Lungs and pleura: Small radiopaque fusion noted. Right basilar atelectasis. No pneumothorax seen. Cardiomediastinal silhouette: Normal cardiomediastinal silhouette. Bones and soft tissues: Unremarkable. Procedure Note Provider, [facility] [place] - 03/19/2024 * * *Final Report* * * DATE OF EXAM: Mar 17 2024 8:41AM [id number] - XR CHEST 2V FRONTAL/LAT / PROCEDURE REASON: Chronic bronchitis, unspecified chronic bronchitis type (HCC) * * * * Physician Interpretation * * * * EXAMINATION: CHEST RADIOGRAPH (2 VIEW FRONTAL & LATERAL) CLINICAL HISTORY: Chronic bronchitis, unspecified chronic bronchitis type (HCC) MQ: XC2_6 EXAM DATE/TIME: 03/17/2024 8:41 AM COMPARISON: 02/04/2024 RESULT: Lines, tubes, and devices: A Pleurx catheter travels to the right posterior hemithorax Lungs and pleura: Small radiopaque fusion noted. Right basilar atelectasis. No pneumothorax seen. Cardiomediastinal silhouette: Normal cardiomediastinal silhouette. Bones and soft tissues: Unremarkable. IMPRESSION IMPRESSION: Small right effusion noted slightly increased. Right-sided Pleurx catheter present. Sheeting Puller: PSCB Transcribe Date/Time: Mar 19 2024 4:42P Dictated by : KALEY CHAMBERS MD This examination was interpreted and the report reviewed and electronically signed by: KALEY CHAMBERS MD on Mar 19 2024 4:43PM EST Louise Douglas MD RAD-PAMA Final Result documented in this encounter Visit Diagnoses Diagnosis Chronic bronchitis, unspecified chronic bronchitis type (HCC)- Primary Chronic bronchitis, unspecified chronic bronchitis type (HCC) documented in this encounter Care Teams Advisory Software Engineer Relationship Specialty Start [place] [address] [place] [address] PCP - General Family Medicine 12/29/23 Jere Sales MD [address] [address] Referring Gastroenterology 12/05/20 Calin Gotti DO [address] [place] [address] Internal Medicine 10/16/23 documented as of this encounter
--- OUTSIDE RECORDS SUMMARY | 2024-11-24 16:47 | XMS_ITS | Encounter Summary ---
Author Organization [facility] Address [address] [place] [address] Care Team Providers Care Facilities Operator Name Role Phone Jere Sales MD Unavailable [phone] Calin Gotti DO Unavailable [phone] Jose Antonio Meyers MD Primary Care Provider [phone] Source Comments In the event this information is protected by the Federal Confidentiality of Alcohol and Drug AbusePatient Records regulations: The Federal rules restrict any use of the information to criminally investigate or prosecute any alcohol or drug abuse patient.[facility] Encounter Details Date Type Department Care Team (Late st Contact Info) Description 01/20/2024 Get Medical Advice Thoracic Surgery [address] [place] [address] Cecilia Guadarrama APRN.LIFTER [address] [place] [address] Willie Harris Appt Feb 04, 2024 Social History Tobacco Use Types Packs/Day Years Used Date Smoking Tobacco: Never Smokeless Tobacco: Never Alcohol Use Standard Drinks/Week Comments Yes 0 (1 standard drink = 0.6 oz pure alcohol) socially, no drink since 06/2023 [facility] Utilities Answer Date Recorded In the [...] lower risk 5 12/11/2023 Data from: https://www.neighborhoodatlas.medicine.[facility].edu/. Last address used for calculation 2230 [...] EDT [place] [address] [place] [address] [place] [address] [place] [id number] Follow-up 12/16/2024 12:30 PM EDT Office Visit Vascular Surgery [address] [facility] [place] [address] Extremity cyanosis [R23.0] 12/16/2024 2:30 PM EDT Office Visit Vascular Surgery [address] [facility] [place] [address] Extremity cyanosis [R23.0] 12/16/2024 3:30 PM EDT Office Visit Vascular Surgery [address] [place] [address] Extremity cyanosis [R23.0] 12/22/2024 6:[address] [facility] Gastroenterology [address] [address] Araseli Wall APRN.LIFTER [address] [facility] [address] Elevated alkaline phosphatase leve 05/21/2025 2:00 PM EST Office Visit Cardiology [address] [place] [address] [place] [address] [place] [address] 6 month follow up documented as of this encounter Goals Goal Patient Goal Type Associated Problems Recent Progress Patient-Stated? Author Blood Pressure < 130/80 Blood Pressure 120/74( 025 10:15 PM EDT) No Sung Hartley MD documented as of this encounter Visit Diagnoses Not on filedocumented in this encounter Care Teams Facilities Operator Relationship Specialty Start [place] [address] [place] [address] PCP - General Family Medicine 12/29/23 Jere Sales MD [address] [address] Referring Gastroenterology 12/05/20 Calin Gotti DO [address] [place] [address] Internal Medicine 10/16/23 documented as of this encounter
--- OUTSIDE RECORDS SUMMARY | 2024-11-24 16:47 | XMS_ITS | Encounter Summary ---
Author Organization [facility] Address [facility] [place] [address] Care Team Providers Care Manager Wireless Name Role Phone Jere Sales MD Unavailable [phone] Calin Gotti DO Unavailable [phone] Jose Antonio Meyers MD Primary Care Provider [phone] Source Comments In the event this information is protected by the Federal Confidentiality of Alcohol and Drug AbusePatient Records regulations: The Federal rules restrict any use of the information to criminally investigate or prosecute any alcohol or drug abuse patient.[facility] Encounter Details Date Type Department Care Team (Late st Contact Info) Description 08/25/2024 Get Medical Advice Pulmonary Medicine [address] [place] [address] Triston Riggs MD [address] [place] [address] Willie Harris . 1950 Social History Tobacco Use Types Packs/Day Years Used Date Smoking Tobacco: Never Smokeless Tobacco: Never Alcohol Use Standard Drinks/Week Comments Yes 0 (1 standard drink = 0.6 oz pure alcohol) socially, no drink since 06/2023 [facility] Utilities Answer Date Recorded In the past [...] place to sleep or slept in a care home (including now)? No 11/21/2023 Area Deprivation Index Answer Date Hari rded National Score (1-100), lower number is lower ri sk 68 12/11/2023 State Score (1-10), lower number is lower risk 5 12/11/2023 Data from: https://www.neighborhoodatlas.medicine.[facility].edu/. Last address used for calculation 2230 [...] EDT [place] [address] [place] [address] [place] [address] [place] [address] Follow-up 12/16/2024 12:30 PM EDT Office Visit Vascular Surgery [address] [facility] [place] [address] Extremity cyanosis [R23.0] 12/16/2024 2:30 PM EDT Office Visit Vascular Surgery [address] [facility] [place] [address] Extremity cyanosis [R23.0] 12/16/2024 3:30 PM EDT Office Visit Vascular Surgery [address] [place] [address] Extremity cyanosis [R23.0] 12/22/2024 6:[address] [facility] Gastroenterology [address] [address] Araseli Wall APRN.RN STAFF [address] [facility] [address] Elevated alkaline phosphatase leve 05/21/2025 2:00 PM EST Office Visit Cardiology [address] [place] [address] [place] [address] [place] [address] 6 month follow up documented as of this encounter Goals Goal Patient Goal Type Associated Problems Recent Progress Patient-Stated? Author Blood Pressure < 130/80 Blood Pressure 120/74( 025 10:15 PM EDT) No Sung Hartley MD documented as of this encounter Visit Diagnoses Not on filedocumented in this encounter Care Teams Manager Wireless Relationship Specialty Start [place] [address] [place] [address] PCP - General Family Medicine 12/29/23 Jere Sales MD [address] [address] Referring Gastroenterology 12/05/20 Calin Gotti DO [address] [place] [address] Internal Medicine 10/16/23 documented as of this encounter
--- OUTSIDE RECORDS SUMMARY | 2024-11-24 16:47 | XMS_ITS | Encounter Summary ---
Author Organization [facility] Address [address] [place] [address] Care Team Providers Care Radar Repairer Name Role Phone Jere Sales MD Unavailable [phone] Calin Gotti DO Unavailable [phone] Jose Antonio Meyers MD Primary Care Provider [phone] Source Comments In the event this information is protected by the Federal Confidentiality of Alcohol and Drug AbusePatient Records regulations: The Federal rules restrict any use of the information to criminally investigate or prosecute any alcohol or drug abuse patient.[facility] Reason for Referral * Outpatient Procedure (Routine) - New Request Specialty Diagnoses / Procedures Referred By Contac t Referred To Contact [facility] Diagnoses Cough, unspecified type Procedures NITRIC OXIDE, EXHALED NITRIC OXIDE GAS DETERMINATION Louise Douglas MD [facility] [place] [address] Phone: tel: fax: Respiratory [place] [address] [place] [address] Referral ID Status Reason Start Date Expiration Date Visits Requested Visits Authorized [id number] New Request Auto-Generat ed Referral 01/10/2024 02/08/2025 1 1 Encounter Details Date Type Department Care Team (Latest Contact Info) Description 01/10/2024 Transcribe Orders Respiratory [place] [address] [place] [address] Louise Douglas MD [address] [place] [address] Cough, unspecified type (Primary Dx) Social History Tobacco Use Types Packs/Day Years Used Date Smoking Tobacco: Never Smokeless Tobacco: Never [facility] Utilities Answer Date Recorded In the past 12 months has th e [employer], gas, oil, or water [employer] threatened to shut off services in your [...] place to sleep or slept in a prison (including now)? No 11/21/2023 Area Deprivation Index Answer Date Hari rded National Score (1-100), lower number is lower ri sk 68 12/11/2023 State Score (1-10), lower number is lower risk 5 12/11/2023 Data from: https://www.neighborhoodatlas.medicine.[facility]/. Last address used for calculation 2230 12/11/2023 [...] Author No 12/26/2023 4:30 PM EDT Orlando Welhs RN documented in this encounter Plan of Treatment Upcoming Encounters Date Type Department Care Team (Late st Contact Info) Description 12/15/2024 11:15 AM EDT [place] [address] [place] [address] [place] [address] [place] [address] Follow-up 12/16/2024 12:30 PM EDT Office Visit Vascular Surgery [address] [place] [address] Extremity cyanosis [R23.0] 12/16/2024 2:30 PM EDT Office Visit Vascular Surgery [address] [place] [address] Extremity cyanosis [R23.0] 12/16/2024 3:30 PM EDT Office Visit Vascular Surgery [address] [place] [address] Extremity cyanosis [R23.0] 12/22/2024 6:00 PM EDT [facility] Gastroenterology [address] [address] Araseli Wall APRN.LIGHT CLEANER [address] [place] [address] Elevated alkaline phosphatase leve 05/21/2025 2:00 PM EST Office Visit Cardiology [address] [place] [address] [place] [address] [facility] [place] [address] 6 month follow up Scheduled Orders Name Type Priority Associated Diagnoses Orde r Schedule NITRIC OXIDE, EXHALED PFT Routine Cough, unspecified type 1 Occurrences starting 01/10/2024 until 02/08/2025 documented as of this encounter Goals Goal Patient Goal Type Associated Problems Recent Progress Patient-Stated? Author Blood Pressure < 130/80 Blood Pressure 120/74( 025 10:15 PM EDT) No Sung Hartley MD documented as of this encounter Results * XR CHEST 2V FRONTAL/LAT (10/13/2024 1:10 PM EDT) Anatomical Region Laterality Modality Chest Other 10/13/2024 1:10 PM EDT Impressions 10/13/2024 3:26 PM EDT IMPRESSION: 1. Small located/partially loculated right pleural effusion, slightly bigger since 08/13/24, status post right chest tube placement. 2. Left lung remains clear. Transcribe Date/Time: Oct 13 2024 3:12P Dictated by: KARYN BOOTH MD This examination was interpreted and the report reviewed and electronically signed by: KARYN BOOTH MD on Oct 13 2024 3:24PM EST Thank you for allowing us to participate in the care of your patient. Should there be any questions regarding this interpretation, please call [phone]. If you are unable to reach us at the number above, please feel free to contact [facility] at [phone]. Narrative 10/13/2024 3:26 PM EDT * * *Final Report* * * DATE OF EXAM: Oct 13 2024 1:10PM [id number] - XR CHEST 2V FRONTAL/LAT / PROCEDURE REASON: Cough, unspecified type * * * * Physician Interpretation * * * * RESULT: EXAMINATION: CHEST RADIOGRAPH (2 VIEW FRONTAL & LATERAL) CLINICAL HISTORY: Cough, unspecified type MQ: XC2_6 EXAM DATE/TIME: 10/13/2024 1:10 PM COMPARISON: 08/13/24 RESULT: Lines, tubes, and devices: Right-sided chest tube is noted.. Lungs and pleura: Small loculated/partially loculated right pleural effusion, slightly bigger. Left lung remains clear. No pneumothorax. Cardiomediastinal silhouette: Normal cardiomediastinal silhouette. Bones and soft tissues: Unremarkable. Procedure Note Provider, [facility] [place] - 10/13/2024 * * *Final Report* * * DATE OF EXAM: Oct 13 2024 1:10PM [id number] - XR CHEST 2V FRONTAL/LAT / PROCEDURE REASON: Cough, unspecified type * * * * Physician Interpretation * * * * RESULT: EXAMINATION: CHEST RADIOGRAPH (2 VIEW FRONTAL & LATERAL) CLINICAL HISTORY: Cough, unspecified type MQ: XC2_6 EXAM DATE/TIME: 10/13/2024 1:10 PM COMPARISON: 08/13/24 RESULT: Lines, tubes, and devices: Right-sided chest tube is noted.. Lungs and pleura: Small loculated/partially loculated right pleural effusion, slightly bigger. Left lung remains clear. No pneumothorax. Cardiomediastinal silhouette: Normal cardiomediastinal silhouette. Bones and soft tissues: Unremarkable. IMPRESSION IMPRESSION: 1. Small located/partially loculated right pleural effusion, slightly bigger since 08/13/24, status post right chest tube placement. 2. Left lung remains clear. Transcribe Date/Time: Oct 13 2024 3:12P Dictated by: KARYN BOOTH MD This examination was interpreted and the report reviewed and electronically signed by: KARYN BOOTH MD on Oct 13 2024 3:24PM EST Thank you for allowing us to participate in the care of your patient. Should there be any questions regarding this interpretation, please call [phone]. If you are unable to reach us at the number above, please feel free to contact [facility] at [phone]. us Louise Douglas MD RAD-PAMA Final Result documented in this encounter Visit Diagnoses Diagnosis Cough, unspecified type- Primary Cough, unspecified type documented in this encounter Care Teams Radar Repairer Relationship Specialty Start [place] [address] [place] [address] PCP - General Family Medicine 12/29/23 Jere Sales MD [address] [address] Referring Gastroenterology 12/05/20 Calin Gotti DO [address] [place] [address] Internal Medicine 10/16/23 documented as of this encounter
--- OUTSIDE RECORDS SUMMARY | 2024-11-24 16:47 | XMS_ITS | Encounter Summary ---
Author Organization [facility] Address [address] [place] [address] Care Team Providers Care Press Assistant And Feeder Name Role Phone Jere Sales MD Unavailable [phone] Calin Gotti DO Unavailable [phone] Jose Antonio Meyers MD Primary Care Provider [phone] Source Comments In the event this information is protected by the Federal Confidentiality of Alcohol and Drug AbusePatient Records regulations: The Federal rules restrict any use of the information to criminally investigate or prosecute any alcohol or drug abuse patient.[facility] Reason for Visit * Reason Comments Appointment Encounter Details Date Type Department Care Team (Late st Contact Info) Description 10/10/2024 Telephone Admitting [address] [address] [facility] Appointment Social History Tobacco Use Types Packs/Day Years Used Date Smoking Tobacco: Never Smokeless Tobacco: Never Alcohol Use Standard Drinks/Week Comments Yes 0 (1 standard drink = 0.6 oz pure alcohol) socially, no drink since 06/2023 [facility] Utilities Answer Date Recorded In the [...] risk 5 12/11/2023 Data from: https://www.neighborhoodatlas.medicine.[facility].edu/. Last address used for calculation 2230 12/11/2023 [...] EDT [place] [address] [place] [address] [place] [address] [place] [address] Follow-up 12/16/2024 12:30 PM EDT Office Visit Vascular Surgery [address] [place] [address] Extremity cyanosis [R23.0] 12/16/2024 2:30 PM EDT Office Visit Vascular Surgery [address] [place] [address] Extremity cyanosis [R23.0] 12/16/2024 3:30 PM EDT Office Visit Vascular Surgery [address] [place] [address] Extremity cyanosis [R23.0] 12/22/2024 6:00 PM EDT [facility] Gastroenterology [address] [place] [address] Araseli Wall APRN.DRIVING TEACHER [address] [place] [address] Elevated alkaline phosphatase leve 05/21/2025 2:00 PM EST Office Visit Cardiology [address] [place] [address] [place] [address] [facility] [place] [address] 6 month follow up documented as of this encounter Goals Goal Patient Goal Type Associated Problems Recent Progress Patient-Stated? Author Blood Pressure < 130/80 Blood Pressure 120/74( 025 10:15 PM EDT) No Sung Hartley MD documented as of this encounter Visit Diagnoses Not on filedocumented in this encounter Care Teams Press Assistant And Feeder Relationship Specialty Start [place] [address] [facility] [address] PCP - General Family Medicine 12/29/23 Jere Sales MD [address] [address] Referring Gastroenterology 12/05/20 Calin Gotti DO [address] [place] [address] Internal Medicine 10/16/23 documented as of this encounter
--- OUTSIDE RECORDS SUMMARY | 2024-11-24 16:47 | XMS_ITS | Clinical Summary ---
Author Organization [facility] Address [address] [place] [address] Care Team Providers Care Aircraft Shipping Checker Name Role Phone Dawit Lorenz DO Primary Care Provider [phone] Dawit Lorenz DO Unavailable [phone] Karthik Calloway MD Unavailable Unavail able Allergies Active Allergy Reactions Criticality Noted Date Comments Oxycodone-Acetaminoph en Other (See Comments) 2016 Urinary retention Hallucinations Tramadol Shortness Of Breath High 08/24/2014 Medications omeprazole (PRILOSEC) 20 MG capsule Take 1 (one) capsule (20 mg total) by mouth every morning . Active allopurinol (ZYLOPRIM) 300 MG tablet Take 1 (one) tablet (300 mg total) by mouth at bedtime . Active atorvastatin (LIPITOR) 10 MG tablet Take 1 (one) tablet (10 mg total) by mouth nightly . Active aspirin 81 MG EC tablet Take 1 (one) tablet (81 mg total) by mouth at bedtime . Active loratadine (CLARITIN) 10 mg tablet Take 1 (one) tablet (10 mg total) by mouth every evening . Active ASCORBATE CALCIUM (VITAMIN C ORAL) Take 1 tablet by mouth every morning . Active BIOTIN ORAL Take 1 tablet by mouth every morning . Active multivitamin (THERAGRAN) per tablet Take 1 (one) tablet by mouth every morning . Active polycarbophil (FIBERCON) 625 mg tablet Take 1 (one) tablet (625 mg total) by mouth every morning . Active vit A-vit C-vit E-vonj-zfmuhh 7,160-113-100 rcpc-wo-utwx Tab Take 1 tablet by mouth every morning . Active tamsulosin (FLOMAX) 0.4 mg capsule Take 1 (one) capsule (0.4 mg total) by mouth daily . Active GUAIFENESIN/DEX TROMETHORPHAN (MUCINEX DM ORAL) Take by mouth. Activ e fluorouraciL (EFUDEX) 5 % cream 1 Active ciprofloxacin HCl (CILOXAN) 0.3 % ophthalmic solution INSTILL 1 DROP INTO AFFECTED EYE 4 TIMES DAILY 3 Active ketorolac (ACULAR) 0.5 % ophthalmic solution INSTILL 2 DROPS INTO AFFECTED EYE TWICE DAILY 3 Active prednisoLONE acetate (PRED FORTE) 1 % ophthalmic suspension INSTILL 1 DROP INTO AFFECTED EYE INTO AFFECTED EYE 4 TIMES DAILY DIRECTED 3 Active meloxicam (MOBIC) 15 MG tablet Take 1 (one) tablet (15 mg total) by mouth as needed . 90 tablet 3 Active amoxicillin (AMOXIL) 500 MG capsule Take 4 capsules one hour prior to dental procedure/hira salvador . 4 capsule 1 4 Active diclofenac sodium 1% (Voltaren Arthritis Pain) 1 % Gel Apply 2 (two) g topically 4 (four) times a day as needed for pain Apply 2 grams to affected area up to 4 times a day as needed for pain. . 300 g 2 5 Active Active Problems Problem Noted Date Diagnosed Date Urinary retention 06/27/2016 Assessment & Plan (06/27/2016 12:19 PM EST): POD # 2 s/p right total knee arthroplasty with development of acute UR postoperatively requiring clement catheter placement. Hx of postop UR in the past. -UA neg today -Flomax and urecholine started -Indwelling clement placed today -Recommend home with flomax and clement. Plans for TOV next week as outpatient once mobility improves and he is having reg BMs. -His TOV has been scheduled for , 07/05/16 @ 130pm at our [facility] office. S/P total knee arthroplasty 06/25/2016 Osteoarthritis 06/25/2016 Primary osteoarthritis of left knee 08/02/2015 Retention of urine 08/25/2014 Acute blood loss anemia 08/24/2014 Leukocytosis 08/24/2014 Osteoarthritis of left knee 08/23/2014 Assessment & Plan (08/23/2014 1:29 PM EDT): Postoperative day of surgery left total knee arthroplasty. Enteric coated aspirin--deep venous thrombosis prophylaxis per primary surgical service. Analgesia: Percocet + IV hydromorphone as needed for breakthrough pain. Other and unspecified hyperlipidemia 08/23/2014 Assessment & Plan (08/23/2014 1:30 PM EDT): Hyperlipidemia-controlled on statin--continue postop. Obesity 08/23/2014 Overview (03/17/2015): Updated per ICD10 Conversion Assessment & Plan (08/23/2014 1:32 PM EDT): Body mass index is 30.49 kg/(m^2). No risk factors for MAU. Family History Medical History Relation Comments Heart disease Father Anesthesia problems Neg Hx Clotting disorder Neg Hx Deep vein thrombosis Neg Hx Pulmonary embolism Neg Hx Surgical complications Neg Hx Relation Status Comments Father Social History Tobacco Use Types Packs/Day Years Used Date Smoking Tobacco: Never Smokeless Tobacco: Never Tobacco Cessation:Counseling Given: Not Answered Alcohol Use Standard Drinks/Week Comments Yes 0 (1 standard drink = 0.6 oz pur e alcohol) occasionally Sex and Gender Information Value Date Recorded Sex Assigned at Not on file Legal Sex Male 1:03 PM EDT Gender Identity Not on file Sexual Orientation Not on file Last Filed Vital Signs Vital Sign Reading Time Taken Comments Blood Pressure 122/76 06/29/2016 7:30 AM EST Pulse 85 06/29/2016 7:30 AM EST Temperature 36.9 C (98.4 F) 06/29/2016 7:30 AM EST Respiratory Rate 14 06/29/2016 7:30 AM EST Oxygen Saturation 94% 06/29/2016 7:30 AM EST Inhaled Oxygen Concentration - - Weight 99.8 kg (220 lb) 02/11/2023 3:16 PM EDT Height 182.9 cm (6') 02/11/2023 3:16 PM EDT Body Mass Index 29.84 02/11/2023 3:16 PM EDT Plan of Treatment Health Maintenance Due Date Last Done Comments CT Colonography 1950 Colonoscopy 1950 Colorectal Cancer Screening/Monitoring 1950 Fecal DNA 1951 Fecal occult blood test (FOBT,FIT) 1950 PSA Level 1950 Medicare Wellness Visit 1954 Depression Screening/Follow- Up (PHQ-2/9) 1963 Hepatitis C Screening 1969 Flexible sigmoidoscopy 2001 Falls Risk Assessment 2016 Zoster Vaccines (2 of 2) 10/25/2018 08/30/2018 COVID-19 Vaccine ( season) 2024 05/10/2021, 09/13/2020, 08/22/2020 Influenza Vaccine (Season Ended) 2025 05/09/20, 05/09/2020 Respiratory Syncytial Virus Immunization: Risk, 60-74 Risk, or 75+ (1 - 1-dose 75+ series) 2026 Tetanus: Every 10yrs 08/30/2028 08/30/2018, 06/04/20 18 Pneumococcal Vaccine: Age 50+ Completed 02/03/2018, 11/26/2016 Medical Devices Implanted Type Area Litigation Support Analyst Device Identifier Shelf Expiration Date Model / Serial / Lot Cement 1 X 40 [place] Bone Single - [id number] Implanted:Qty: 2 on 08/23/2014 by Karthik Calloway MD at [facility] Cement Left: Knee Anh 01/14/2019 [id number] -01 / / [id number] Stem Short Cemented Persona - [id number] Implanted:Qty: 1 on 08/23/2014 by Karthik Calloway MD at [facility] ANH HAK 09/23/2017 [id number] -14 / / [id number] Stem Sz F Tib 5deg Nonpor Lt Persona - [id number] Implanted:Qty: 1 on 08/23/2014 by Karthik Calloway MD at [facility] ANH HAK 03/25/2024 [id number] -01 / / [id number] Femoral Sz9 Lt Nrw Ps Cmt Ccr Persona - [id number] Implanted:Qty: 1 on 08/23/2014 by Karthik Calloway MD at [facility] ANH HAK 12/23/2022 [id number] -01 / / [id number] Patella 32mm All Poly Persona - [id number] Implanted:Qty: 1 on 08/23/2014 by Karthik Calloway MD at [facility] [place][note 2]K 02/23/2022 42-5400-000 -32 / / [id number] Articular Surf Ef 6-9 14mm Lt Ps Vivacit-E Persona - [id number] Implanted:Qty: 1 on 08/23/2014 by Karthik Calloway MD at [facility] [place][note 2]K 09/23/2017 [id number] -14 / / [id number] Simplex Hv With Gentamicin Cement Implanted:Qty: 2 on 06/25/2016 by Karthik Calloway MD at [facility] Right: Knee [employer] 01/14/2018 [id number] / / [id number] Stem Sz F Tib 5deg Nonpor Rt Persona - [id number] Implanted:Qty: 1 on 06/25/2016 by Karthik Calloway MD at [facility] Right: Knee ANH K 05/16/2026 [id number] -02 / / [id number] Femoral Sz9 Rt Nrw Ps Cmt Ccr Persona - [id number] Implanted:Qty: 1 on 06/25/2016 by Karthik Calloway MD at [facility] Right: Knee ANH K 02/14/2026 [id number] -02 / / [id number] Stem Short Cemented Persona - [id number] Implanted:Qty: 1 on 06/25/2016 by Karthik Calloway MD at [facility] Right: Knee ANH K 06/16/2026 [id number] -14 / / [id number] Patella 32mm All Poly Vivacit-E - [id number] Implanted:Qty: 1 on 06/25/2016 by Karthik Calloway MD at [facility] Right: Knee ANH HAK 04/16/2021 [id number] -32 / / [id number] Articular Surf 14mm 6-9ef Rt Cps Ve Persona - [id number] Implanted:Qty: 1 on 06/25/2016 by Karthik Calloway MD at [facility] Right: Knee ANH HAK 12/14/2020 [id number] -14 / / [id number] Explanted Type Area Litigation Support Analyst Device Identifier Shelf Expiration Date Model / Serial / Lot Headed Screw Explanted:Qty: 4 on 08/23/2014 by Karthik Calloway MD at [facility] Left: Knee Anh 08/14/2024 5791-41 / / [id number] 2.5mm Female Hex Screw Explanted:Qty: 1 on 08/23/2014 by Karthik Calloway MD at [facility] Left: Knee Anh 06/16/2024 [id number] -25 / / [id number] Headed Screw Explanted:Qty: 1 on 08/23/2014 by Karthik Calloway MD at [facility] Left: Knee Anh 07/17/2024 / / Insurance [employer] MEDICARE PLAN (PPO) Advance Directives For more information, please contact: [phone] * Full Code (Latest Code Status on File) Date Activated Date Inactivated Comments 06/25/2016 1:54 PM 06/29/2016 3:41 PM * Full Code Date Activated Date Inactivated Comments 08/23/2014 6:45 AM 08/25/2014 7:58 PM Care Teams Aircraft Shipping Checker Relationship Specialty Start Date End Date Dawit Lorenz DO [address] [place] [address] PCP - General Internal Medicine 06/29/14 Dawit Lorenz DO [address] [place] [address] Internal Medicine 06/29/14 Karthik Calloway MD [address] [place] [address] Consulting Physician Orthopedic Surgery 01/28/17
--- OUTSIDE RECORDS SUMMARY | 2024-11-24 16:47 | XMS_ITS | Encounter Summary ---
Author Organization [facility] Address [facility] [place] [address] Care Team Providers Care Candle Wicker Name Role Phone Jere Sales MD Unavailable [phone] Calin Gotti DO Unavailable [phone] Jose Antonio Meyers MD Primary Care Provider [phone] Source Comments In the event this information is protected by the Federal Confidentiality of Alcohol and Drug AbusePatient Records regulations: The Federal rules restrict any use of the information to criminally investigate or prosecute any alcohol or drug abuse patient.[facility] Encounter Details Date Type Department Care Team (Late st Contact Info) Description 08/28/2024 Get Medical Advice Pulmonary Medicine [address] [place] [address] Triston Riggs MD [address] [place] [address] Willie Harris. 1950 Social History Tobacco Use Types Packs/Day Years Used Date Smoking Tobacco: Never Smokeless Tobacco: Never Alcohol Use Standard Drinks/Week Comments Yes 0 (1 standard drink = 0.6 oz pure alcohol) socially, no drink since 06/2023 [facility] Utilities Answer Date Recorded In [...] place to sleep or slept in a chcf (including now)? No 11/21/2023 Area Deprivation Index Answer Date Hari rded National Score (1-100), lower number is lower ri sk 68 12/11/2023 State Score (1-10), lower number is lower risk 5 12/11/2023 Data from: https://www.neighborhoodatlas.medicine.[facility].edu/. Last address used for calculation 2230 12/11/2023 [...] Orlando Welsh RN documented in this encounter Miscellaneous Notes * Telephone Encounter - Amanda Brooks - 09/01/2024 11:36 AM EDT Patient called regarding Invested.inhart message below. She expressed that she has not heard anything back yet. documented in this encounter Plan of Treatment Upcoming Encounters Date Type Department Care Team (Late st Contact Info) Description 12/15/2024 11:15 AM EDT [place] [address] [place] [address] [place] [address] [place] [id number] Follow-up 12/16/2024 12:30 PM EDT Office Visit Vascular Surgery [address] [place] [address] Extremity cyanosis [R23.0] 12/16/2024 2:30 PM EDT Office Visit Vascular Surgery [address] [place] [address] Extremity cyanosis [R23.0] 12/16/2024 3:30 PM EDT Office Visit Vascular Surgery [address] [place] [address] Extremity cyanosis [R23.0] 12/22/2024 6:00 PM EDT [facility] Gastroenterology [address] [address] Araseli Wall, LETICIA.PADDOCK JUDGE [address] [place] [address] Elevated alkaline phosphatase leve 05/21/2025 2:00 PM EST Office Visit Cardiology [address] [place] [address] [place] [address] [facility] [place] [address] 6 month follow up documented as of this encounter Goals Goal Patient Goal Type Associated Problems Recent Progress Patient-Stated? Author Blood Pressure < 130/80 Blood Pressure 120/74( 025 10:15 PM EDT) No Sung Hartley MD documented as of this encounter Visit Diagnoses Not on filedocumented in this encounter Care Teams Candle Wicker Relationship Specialty Start [place] [address] [facility] [address] PCP - General Family Medicine 12/29/23 Jere Sales MD [address] [address] Referring Gastroenterology 12/05/20 Calin Gotti DO [address] [place] [address] Internal Medicine 10/16/23 documented as of this encounter
--- OUTSIDE RECORDS SUMMARY | 2024-11-24 16:47 | XMS_ITS | Encounter Summary ---
Author Organization [facility] Address [address] [place] [address] Care Team Providers Care Editor News Name Role Phone Jere Sales MD Unavailable [phone] Calin Gotti DO Unavailable [phone] Jose Antonio Meyers MD Primary Care Provider [phone] Source Comments In the event this information is protected by the Federal Confidentiality of Alcohol and Drug AbusePatient Records regulations: The Federal rules restrict any use of the information to criminally investigate or prosecute any alcohol or drug abuse patient.[facility] Encounter Details Date Type Department Care Team (Late st Contact Info) Description 02/10/2024 Get Medical Advice Thoracic Surgery [address] [place] [address] Cecilia Guadarrama APRN.CARE DIRECTOR RN [address] [place] [address] Visual Communications Instructor/Goldie lar Appt Social History Tobacco Use Types Packs/Day Years Used Date Smoking Tobacco: Never Smokeless Tobacco: Never Alcohol Use Standard Drinks/Week Comments Yes 0 (1 standard drink = 0.6 oz pure alcohol) socially, no drink since 06/2023 [facility] Utilities Answer Date Recorded In the [...] is lower risk 5 12/11/2023 Data from: https://www.neighborhoodatlas.medicine.[facility].edu/. Last address used for calculation [address] [...] EDT [place] [address] [place] [address] [place] [address] [place] [address] Follow-up 12/16/2024 12:30 PM EDT Office Visit Vascular Surgery [address] [facility] [place] [address] Extremity cyanosis [R23.0] 12/16/2024 2:30 PM EDT Office Visit Vascular Surgery [address] [facility] [place] [address] Extremity cyanosis [R23.0] 12/16/2024 3:30 PM EDT Office Visit Vascular Surgery [address] [place] [address] Extremity cyanosis [R23.0] 12/22/2024 6:00 PM EDT [facility] Gastroenterology [address] [address] Araseli Wall APRN.CARE DIRECTOR RN [address] [facility] [address] Elevated alkaline phosphatase leve 05/21/2025 2:00 PM EST Office Visit Cardiology [address] [place] [address] [place] [address] [place] [address] 6 month follow up documented as of this encounter Goals Goal Patient Goal Type Associated Problems Recent Progress Patient-Stated? Author Blood Pressure < 130/80 Blood Pressure 120/74( 025 10:15 PM EDT) No Sung Hartley MD documented as of this encounter Visit Diagnoses Not on filedocumented in this encounter Care Teams Editor News Relationship Specialty Start [place] [address] [place] [address] PCP - General Family Medicine 12/29/23 Jere Sales MD [address] [address] Referring Gastroenterology 12/05/20 Calin Gotti DO [address] [place] [address] Internal Medicine 10/16/23 documented as of this encounter
--- OUTSIDE RECORDS SUMMARY | 2024-11-24 16:48 | XMS_ITS | Clinical Summary ---
Author Organization [facility] Address [address] [place] [address] Care Team Providers Care Laboratory Technician Name Role Phone Unavailable Primary Care Provider Unavailabl e Allergies Active Allergy Reactions Criticality Noted Date Comments Oxycodone-Acetamino phen Unknown 2016 Other Reaction(s): Other (See Comments) Urinary retention Hallucinations Tramadol Shortness of breath,Unknown High 08/24/2014 Other Reaction(s): Mental Status Change Medications allopurinol (Zyloprim) 300 MG tablet Take 300 mg by mouth at bedtime. Active atorvastatin (Lipitor) 10 MG tablet Take 10 mg by mouth at bedtime. Active aspirin 81 MG EC tablet Take 81 mg by mouth at bedtime. Active omeprazole (PriLOSEC) [address] capsule Take 20 mg by mouth in the morning. Active meloxicam (Mobic) 15 MG tablet Take 15 mg by mouth. Active losartan (Cozaar) 25 MG tablet Take by mouth Active Active Problems Problem Noted Date Diagnosed Date Early dry stage nonexudative age-related macular degeneration of both eyes 08/12/2024 Dry eyes 08/12/2024 Blepharitis of upper and lower eyelids of both e yes 08/12/2024 Bilateral posterior capsular opacification 08/12 Chalazion of left upper eyelid 08/12/2024 Encounters Date Type Department Care Team Description 08/27/2024 1:05 PM EDT Office Visit [facility] [address] [place] [address] Bianca Bynum MD Seborrheic keratosis (Primary Dx); Actinic keratosis; Stasis dermatitis of both legs; Lentigines 08/27/2024 Bamboo flowsheet [facility] [address] [place] [address] Bianca Bynum MD 08/27/2024 Travel from Last 3 Months Family History Medical History Relation Name Comments Melanoma Neg Hx Social History Tobacco Use Types Packs/Day Years Used Date Smoking Tobacco: Never Smokeless Tobacco: Never Tobacco Cessation:Counseling Given: Not Answered Sex and Gender Information Value Date Recorded Sex Assigned at Not on file Legal Sex Male 7:25 PM EDT Gender Identity Not on file Sexual Orientation Not on file Plan of Treatment Upcoming Encounters Date Type Department Care Team (Late st Contact Info) Description 08/16/2025 1:30 PM EST Office Visit [facility] [address] [place] [id number] Arley Hamilton DO [address] [place] [address] 08/31/2025 1:05 PM EDT Office Visit [facility] [address] [place] [address] Bianca Bynum MD [address] [place] [address] Health Maintenance Due Date Last Done Comments CT Colonography 1951 FIT-DNA 1951 FIT 1950 FOBT 1950 Sigmoidoscopy 1950 Colonoscopy 04/28/2034 04/28/2024, 04/28/2024 Colorectal Cancer Screening 04/28/2034 Pneumococcal Vaccine: 65+ Years Completed 8, 11/26/2016 Influenza Vaccine Completed 05/27/2024, 05/09/2020 Procedures Procedure Name Priority Date/Time Associated Diagnosis Comments CRYOTHERAPY SKIN LESION Routine 08/27/2024 1:23 P M EDT Actinic keratosis from Last 3 Months Results * Cryotherapy, skin lesion (08/27/2024 1:23 PM EDT) us Bianca Bynum MD DERM PROCEDURE ORDERABLES Fin al Result from Last [address] [place] [id number] AETNA MEDICARE ADVANTAGE
--- OUTSIDE RECORDS SUMMARY | 2024-11-24 16:48 | XMS_ITS | Encounter Summary ---
Author Organization [facility] Address [address] [place] [address] Care Team Providers Care Telegraph Office Telephone Clerk Name Role Phone Jere Sales MD Unavailable [phone] Calin Gotti DO Unavailable [phone] Jose Antonio Meyers MD Primary Care Provider [phone] Source Comments In the event this information is protected by the Federal Confidentiality of Alcohol and Drug AbusePatient Records regulations: The Federal rules restrict any use of the information to criminally investigate or prosecute any alcohol or drug abuse patient.[facility] Encounter Details Date Type Department Care Team (Late st Contact Info) Description 10/07/2024 Get Medical Advice Pulmonary Medicine [address] [place], [place] [id number] Katerina Pascual PA-C [address] [place] [address] Willie Harris 1950 Social History Tobacco Use Types Packs/Day Years Used Date Smoking Tobacco: Never Smokeless Tobacco: Never Alcohol Use Standard Drinks/Week Comments Yes 0 (1 standard drink = 0.6 oz pure alcohol) socially, no drink since 06/2023 [facility] Utilities Answer Date [...] is lower risk 5 12/11/2023 Data from: https://www.neighborhoodatlas.medicine.[facility].edu/. Last address used for calculation [address] [...] EDT [place] [address] [place] [address] [place] [address] [place] [address] Follow-up 12/16/2024 12:30 PM EDT Office Visit Vascular Surgery [address] [facility] [place] [address] Extremity cyanosis [R23.0] 12/16/2024 2:30 PM EDT Office Visit Vascular Surgery [address] [facility] [place] [address] Extremity cyanosis [R23.0] 12/16/2024 3:30 PM EDT Office Visit Vascular Surgery [address] [place] [address] Extremity cyanosis [R23.0] 12/22/2024 6:00 PM EDT [facility] Gastroenterology [address] [address] Araseli Wall APRN.ANTIQUE AUTOMOBILES REPAIRER [address] [facility] [address] Elevated alkaline phosphatase leve 05/21/2025 2:00 PM EST Office Visit Cardiology [address] [place] [address] [place] [address] [facility] [place] [address] 6 month follow up documented as of this encounter Goals Goal Patient Goal Type Associated Problems Recent Progress Patient-Stated? Author Blood Pressure < 130/80 Blood Pressure 120/74( 025 10:15 PM EDT) No Sung Hartley MD documented as of this encounter Visit Diagnoses Not on filedocumented in this encounter Care Teams Telegraph Office Telephone Clerk Relationship Specialty Start [place] [address] [place] [address] PCP - General Family Medicine 12/29/23 Jere Sales MD [address] [address] Referring Gastroenterology 12/05/20 Calin Gotti DO [address] [place] [address] Internal Medicine 10/16/23 documented as of this encounter
--- OUTSIDE RECORDS SUMMARY | 2024-11-24 16:48 | XMS_ITS | Encounter Summary ---
Author Organization [facility] Address [facility] [place] [address] Care Team Providers Care Public Opinion Survey Taker Name Role Phone Jere Sales MD Unavailable [phone] Calin Gotti DO Unavailable [phone] Jose Antonio Meyers MD Primary Care Provider [phone] Source Comments In the event this information is protected by the Federal Confidentiality of Alcohol and Drug AbusePatient Records regulations: The Federal rules restrict any use of the information to criminally investigate or prosecute any alcohol or drug abuse patient.[facility] Encounter Details Date Type Department Care Team (Late st Contact Info) Description 09/21/2024 Get Medical Advice Pulmonary Medicine [address] [place] [address] Triston Riggs MD [address] [place] [address] Willie Harris 1950 Steroid Injections Social History Tobacco Use Types Packs/Day Years Used Date Smoking Tobacco: Never Smokeless Tobacco: Never Alcohol Use Standard Drinks/Week Comments Yes 0 (1 standard drink = 0.6 oz pure alcohol) socially, no drink since 06/2023 [facility] Utilities Answer Date Recorded In [...] place to sleep or slept in a long term (including now)? No 11/21/2023 Area Deprivation Index Answer Date Hari rded National Score (1-100), lower number is lower ri sk 68 12/11/2023 State Score (1-10), lower number is lower risk 5 12/11/2023 Data from: https://www.neighborhoodatlas.medicine.[facility].edu/. Last address used for calculation 2230 12/11/2023 [...] EDT [place] [address] [place] [address] [place] [address] [place] [address] Follow-up 12/16/2024 12:30 PM EDT Office Visit Vascular Surgery [address] [facility] [place] [address] Extremity cyanosis [R23.0] 12/16/2024 2:30 PM EDT Office Visit Vascular Surgery [address] [facility] [place] [address] Extremity cyanosis [R23.0] 12/16/2024 3:30 PM EDT Office Visit Vascular Surgery 57[address] [place] [address] Extremity cyanosis [R23.0] 12/22/2024 6:00 PM EDT [facility] Gastroenterology [address] [address] Araseli Wall APRN.CHEESE WEIGHER [address] [facility] [place] [address] Elevated alkaline phosphatase leve 05/21/2025 2:00 PM EST Office Visit Cardiology [address] [place] [address] [place] [address] [facility] [place] [address] 6 month follow up documented as of this encounter Goals Goal Patient Goal Type Associated Problems Recent Progress Patient-Stated? Author Blood Pressure < 130/80 Blood Pressure 120/74( 025 10:15 PM EDT) No Sung Hartley MD documented as of this encounter Visit Diagnoses Not on filedocumented in this encounter Care Teams Public Opinion Survey Taker Relationship Specialty Start [place] [address] [place] [address] PCP - General Family Medicine 12/29/23 Jere Sales MD [address] [address] Referring Gastroenterology 12/05/20 Calin Gotti DO [address] [place] [address] Internal Medicine 10/16/23 documented as of this encounter
--- OUTSIDE RECORDS SUMMARY | 2024-11-24 16:48 | XMS_ITS | Encounter Summary ---
Author Organization [facility] Address [address] [place] [address] Care Team Providers Care Job Placement Officer Name Role Phone Jere Sales MD Unavailable [phone] Calin Gotti DO Unavailable [phone] Jose Antonio Meyers MD Primary Care Provider [phone] Source Comments In the event this information is protected by the Federal Confidentiality of Alcohol and Drug AbusePatient Records regulations: The Federal rules restrict any use of the information to criminally investigate or prosecute any alcohol or drug abuse patient.[facility] Encounter Details Date Type Department Care Team (Late st Contact Info) Description 07/07/2024 Get Medical Advice Gastroenterology [address] [id number] Sue Terrell MD [address]00 [place] [address] Willie Kimberly Social History Tobacco Use Types Packs/Day Years Used Date Smoking Tobacco: Never Smokeless Tobacco: Never Alcohol Use Standard Drinks/Week Comments Yes 0 (1 standard drink = 0.6 oz pure alcohol) socially, no drink since 06/2023 [facility] Utilities Answer Date Recorded In the [...] is lower risk 5 12/11/2023 Data from: https://www.neighborhoodatlas.medicine.[facility].edu/. Last address used for calculation 2230 12/11/2023 [...] EDT [place] [address] [place] [address] [place] [address] [place] [address] Follow-up 12/16/2024 12:30 PM EDT Office Visit Vascular Surgery 57[address] [facility] [place] [address] Extremity cyanosis [R23.0] 12/16/2024 2:30 PM EDT Office Visit Vascular Surgery 57[address] [facility] [place] [address] Extremity cyanosis [R23.0] 12/16/2024 3:30 PM EDT Office Visit Vascular Surgery 57[address] [facility] [place] [address] Extremity cyanosis [R23.0] 12/22/2024 6:00 PM EDT [facility] Gastroenterology [address] [address] Araseli Wall APRN.V BELT COVERER [address] [place] [address] Elevated alkaline phosphatase leve 05/21/2025 2:00 PM EST Office Visit Cardiology [address] [place] [address] [place] [address] [facility] [place] [address] 6 month follow up documented as of this encounter Goals Goal Patient Goal Type Associated Problems Recent Progress Patient-Stated? Author Blood Pressure < 130/80 Blood Pressure 120/74( 025 10:15 PM EDT) No Sung Hartley MD documented as of this encounter Visit Diagnoses Not on filedocumented in this encounter Care Teams Job Placement Officer Relationship Specialty Start [place] [address] [facility] [place] [address] PCP - General Family Medicine 12/29/23 Jere Sales MD [address] [address] Referring Gastroenterology 12/05/20 Calin Gotti DO [address] [place] [address] Internal Medicine 10/16/23 documented as of this encounter
--- OUTSIDE RECORDS SUMMARY | 2024-11-24 16:48 | XMS_ITS | Encounter Summary ---
Author Organization [facility] Address [address] [place] [address] Care Team Providers Care Plate Painter Apprentice Name Role Phone Jere Sales MD Unavailable [phone] Calin Gotti DO Unavailable [phone] Jose Antonio Meyers MD Primary Care Provider [phone] Source Comments In the event this information is protected by the Federal Confidentiality of Alcohol and Drug AbusePatient Records regulations: The Federal rules restrict any use of the information to criminally investigate or prosecute any alcohol or drug abuse patient.[facility] Reason for Visit * Reason Comments Received Outside Medical Records Encounter Details Date Type Department Care Team (Late st Contact Info) Description 11/23/2024 Telephone Thoracic Clinic [address] [id number] Ronaldo Ramos MD, PhD [address] [facility] [address] [place] [id number] Received Outside Medical Records Social History Tobacco Use Types Packs/Day Years Used Date Smoking Tobacco: Never Smokeless Tobacco: Never Alcohol Use Standard Drinks/Week Comments Yes 0 (1 standard drink = 0.6 oz pure alcohol) socially, no drink since 06/2023 [facility] Utilities Answer Date Recorded In [...] place to sleep or slept in a intermediate (including now)? No 11/21/2023 Area Deprivation Index Answer Date Hari rded National Score (1-100), lower number is lower ri sk 68 12/11/2023 State Score (1-10), lower number is lower risk 5 12/11/2023 Data from: https://www.neighborhoodatlas.medicine.[facility].edu/. Last address used for calculation 2230 12/11/2023 [...] encounter Miscellaneous Notes * Telephone Encounter - Lora Wood - 11/23/2024 1:48 PM EDT Received missed visit notes 11/20/24 and 11/10/24 records scanned in [facility] natalee Loya asst documented in this encounter Plan of Treatment Upcoming Encounters Date Type Department Care Team (Late st Contact Info) Description 12/15/2024 11:15 AM EDT [place] [address] [place] [address] [place] [address] [address], [place] [id number] Follow-up 12/16/2024 12:30 PM EDT Office Visit Vascular Surgery 5700 [place] [address] Extremity cyanosis [R23.0] 12/16/2024 2:30 PM EDT Office Visit Vascular Surgery 57[address] [place] [address] Extremity cyanosis [R23.0] 12/16/2024 3:30 PM EDT Office Visit Vascular Surgery [address] [place] [address] Extremity cyanosis [R23.0] 12/22/2024 6:00 PM EDT [facility] Gastroenterology [address] [address] Araseli Wall APRN.PATIENT ACCOUNTS CLERK [address] [place] [address] Elevated alkaline phosphatase leve 05/21/2025 2:00 PM EST Office Visit Cardiology [address] [place] [address] [place] [address] [facility] [place] [address] 6 month follow up documented as of this encounter Goals Goal Patient Goal Type Associated Problems Recent Progress Patient-Stated? Author Blood Pressure < 130/80 Blood Pressure 120/74( 025 10:15 PM EDT) No Sung Hartley MD documented as of this encounter Visit Diagnoses Not on filedocumented in this encounter Care Teams Plate Painter Apprentice Relationship Specialty Start [place] [address] [facility] [address] PCP - General Family Medicine 12/29/23 Jere Sales MD [address] [address] Referring Gastroenterology 12/05/20 Calin Gotti DO 1400 [place] [address] Internal Medicine 10/16/23 documented as of this encounter
--- OUTSIDE RECORDS SUMMARY | 2024-11-24 16:48 | XMS_ITS | Encounter Summary ---
Author Organization [facility] Address [address] [place] [address] Care Team Providers Care Trainmaster Name Role Phone Unavailable Primary Care Provider Unavailabl e Encounter Details Date Type Department Care Team (Late st Contact Info) Description 01/01/2023 Abstract [facility] [address] [place] [address] Bianca Bynum MD [address] [place] [address] Social History Tobacco Use Types Packs/Day Years Used Date Smoking Tobacco: Never Smokeless Tobacco: Never Sex and Gender Information Value Date Recorded Sex Assigned at Not on file Legal Sex Male 7:25 PM EDT Gender Identity Not on file Sexual Orientation Not on file COVID-19 Exposure Response Date Recorded In the last 10 days, have yo u been in contact with someone who was confirmed or suspected to have Coronavirus/COVID-19? No / Unsure 12/31/2022 3:36 PM EDT documented as of this encounter Plan of Treatment Upcoming Encounters Date Type Department Care Team (Late st Contact Info) Description 08/16/2025 1:30 PM EST Office Visit [facility] [address] [place] [address] Arley Hamilton DO [address] [place] [address] 08/31/2025 1:05 PM EDT Office Visit [facility] [address] [place] [address] Bianca Bynum MD [address] [place] [address] documented as of this encounter Visit Diagnoses Not on filedocumented in this encounter
--- OUTSIDE RECORDS SUMMARY | 2024-11-24 16:48 | XMS_ITS | Encounter Summary ---
Author Organization [facility] Address [address] [place] [address] Care Team Providers Care Fishing Boat Captain Name Role Phone Jere Sales MD Unavailable [phone] Calin Gotti DO Unavailable [phone] Jose Antonio Meyers MD Primary Care Provider [phone] Source Comments In the event this information is protected by the Federal Confidentiality of Alcohol and Drug AbusePatient Records regulations: The Federal rules restrict any use of the information to criminally investigate or prosecute any alcohol or drug abuse patient.[facility] Encounter Details Date Type Department Care Team (Late st Contact Info) Description 09/18/2024 Patient Msg Gastroenterology [address] [address] Provider, [facility] Procedure Instructions for EGD scheduled on 09/25 Social History Tobacco Use Types Packs/Day Years Used Date Smoking Tobacco: Never Smokeless Tobacco: Never Alcohol Use Standard Drinks/Week Comments Yes 0 (1 standard drink = 0.6 oz pure alcohol) socially, no drink since 06/2023 [facility] Utilities Answer Date Recorded In the [...] is lower risk 5 12/11/2023 Data from: https://www.neighborhoodatlas.medicine.[facility].edu/. Last address used for calculation 2230 [...] EDT [place] [address] [place] [address] [place] [address] [place] [address] Follow-up 12/16/2024 12:30 PM EDT Office Visit Vascular Surgery 5700 [place] [address] Extremity cyanosis [R23.0] 12/16/2024 2:30 PM EDT Office Visit Vascular Surgery 5700 [facility] [place] [address] Extremity cyanosis [R23.0] 12/16/2024 3:30 PM EDT Office Visit Vascular Surgery 5700 [facility] [place] [address] Extremity cyanosis [R23.0] 12/22/2024 6:00 PM EDT [facility] Gastroenterology [address] [address] Araseli Wall APRN.UNIVERSAL BRANCH CONSULTANT [address] [facility] [place] [address] Elevated alkaline phosphatase leve 05/21/2025 2:00 PM EST Office Visit Cardiology [address] [place] [address] [place] [address] [facility] [place] [address] 6 month follow up documented as of this encounter Goals Goal Patient Goal Type Associated Problems Recent Progress Patient-Stated? Author Blood Pressure < 130/80 Blood Pressure 120/74( 025 10:15 PM EDT) No Sung Hartley MD documented as of this encounter Visit Diagnoses Not on filedocumented in this encounter Care Teams Fishing Boat Captain Relationship Specialty Start [place] [address] [facility] [place] [address] PCP - General Family Medicine 12/29/23 Jere Sales MD [address] [address] Referring Gastroenterology 12/05/20 Calin Gotti DO [address] [place] [address] Internal Medicine 10/16/23 documented as of this encounter
--- OUTSIDE RECORDS SUMMARY | 2024-11-24 16:48 | XMS_ITS | Encounter Summary ---
Author Organization [facility] Address [address] [place] [address] Care Team Providers Care Residential Caregiver Name Role Phone Jere Sales MD Unavailable [phone] Calin Gotti DO Unavailable [phone] Jose Antonio Meyers MD Primary Care Provider [phone] Source Comments In the event this information is protected by the Federal Confidentiality of Alcohol and Drug AbusePatient Records regulations: The Federal rules restrict any use of the information to criminally investigate or prosecute any alcohol or drug abuse patient.[facility] Encounter Details Date Type Department Care Team (Late st Contact Info) Description 11/24/2024 Results Follow-Up Cardiology [address] [facility] [place] [address] [place] [address] [facility] [place], [place] [address] Social History Tobacco Use Types Packs/Day Years [...] risk 5 12/11/2023 Data from: https://www.neighborhoodatlas.medicine.[facility].edu/. Last address used for calculation 2230 12/11/2023 [...] EDT [place] [address] [place] [address] [place] [address] [place] [address] Follow-up 12/16/2024 12:30 PM EDT Office Visit Vascular Surgery [address] [facility] [place] [address] Extremity cyanosis [R23.0] 12/16/2024 2:30 PM EDT Office Visit Vascular Surgery [address] [place] [address] Extremity cyanosis [R23.0] 12/16/2024 3:30 PM EDT Office Visit Vascular Surgery 57[address] [place] [address] Extremity cyanosis [R23.0] 12/22/2024 6:00 PM EDT [facility] Gastroenterology [address] [address] Araseli Wall APRN.MOSAIC TILE MAKER [address] [place] [address] Elevated alkaline phosphatase leve 05/21/2025 2:00 PM EST Office Visit Cardiology [address] [place] [address] [place] [address] [facility] [place] [address] 6 month follow up documented as of this encounter Goals Goal Patient Goal Type Associated Problems Recent Progress Patient-Stated? Author Blood Pressure < 130/80 Blood Pressure 120/74( 025 10:15 PM EDT) No Sung Hartley MD documented as of this encounter Visit Diagnoses Not on filedocumented in this encounter Care Teams Residential Caregiver Relationship Specialty Start [place] [address] [facility] [place] [address] PCP - General Family Medicine 12/29/23 Jere Sales MD [address] [address] Referring Gastroenterology 12/05/20 Calin Gotti DO [address] [place] [address] Internal Medicine 10/16/23 documented as of this encounter
--- OUTSIDE RECORDS SUMMARY | 2024-11-24 16:48 | XMS_ITS | Clinical Summary ---
Author Organization [facility] Address [id number] [place] [address] Care Team Providers Care Driver Sales Name Role Phone Unavailable Primary Care Provider Unavailabl e Social History Tobacco Use Types Packs/Day Years Used Date Smoking Tobacco: Never Assessed Childcare Answer Date Recorded Childcare Unknown 11/26/2018 Employment Answer Date Recorded Employment Unknown 11/26/2018 Sex and Gender Information Value Date Recorded Sex Assigned at Not on file Legal Sex Male 11:57 AM EDT Gender Identity Not on file Sexual Orientation Not on file Plan of Treatment Not on file Medical Devices Not on file
--- OUTSIDE RECORDS SUMMARY | 2024-11-24 16:48 | XMS_ITS | Patient Health Record ---
Author Organization [facility] [place] Address [address] [place] [address] Care Team Providers Care Tractor Operator Battery Name Role Phone Dawit Lorenz DO Primary Care Provider Tasneem fernandez Shila Gottihan Unavailable [phone] Allergies Allergen (clinical drug ingredient) Drug/Non Drug Allergy documented on EMR Reaction Allergy Type Onset Date Status tramadol Tramadol Hallucinations Drug Allergy Ac tive Reason For Referral No Information Medications Medication SIG (Take, Route, Frequency, Duration) Notes Start Date End Date Status Calcium 500 MG 1 tablet with meals Orally Twice a day Active Claritin 10 MG 1 tablet Orally Once a day Active Atorvastatin Calcium 10 MG Oral for 90 Days Active Zinc 30 MG 1 tablet Orally [...] 7 DAYS Oral for 7 Days Active MAGnesium-Oxide 400 (240 Mg) MG TAKE 1 TABLET BY MOUTH TWICE DAILY Oral for 30 Days Active Furosemide 40 MG TAKE 1 TABLET BY CRISTI TH ONCE DAILY AT 2 PM Oral for 30 Days Active Allopurinol 300 MG Oral for 90 Days Active Potassium Chloride Khloe ER 20 MEQ Oral for 30 Days Active Aspirin 81 MG 1 tablet Orally Once a day Active Torsemide 100 MG Oral for 90 Days Active Multi Complete - as directed Orally Active Omeprazole 20 MG Oral for 90 Days Active Immunizations Vaccine Route Administration Date Status Comme nts Arexvy Unknown 05/27/2024 Administered Flu, Fluad (66093) 65 yrs + High Dose Seasonal (0484-2206) Unknown 05/27/2024 Administered Flu, Fluad (96395) 65 yrs + Trivalent (7696-9559) Unknown 05/09/2020 Administered Pneumococcal (Pneumovax 23) Unknown 02/03/2018 Administ ered Pneumococcal (Prevnar 13) Unknown 11/26/2016 Administer ed SARS-COV-2 (COVID 19 Pfizer 30mcg/0.3mL) Unknown 05/10/2021 Administered Tdap (Boostrix) Unknown 05/27/2024 Administered ZOSTER (SHINGLES) VACCINE (HZV) Unknown 08/30/2018 Admi nistered Social History Tobacco Use: Social History Observation Description Date Details (start date - stop date) Never Smoker NA - NA Tobacco Control (Standard) Question Answer Notes Tobacco use: Nonsmoker Problems Problem Type SNOMED Code ICD Code Onset Dates Problem Status W/U Status Risk Notes Problem Erythrocyte sedimentation rate raised (854901920) Elevated erythrocyte sedimentation rate (R70.0) Active confirmed Problem Hyperlipidemia (11662686) Hyperlipidemia (E78.5) Active confirmed Problem Coronary artery disease (96048153) CAD (coronary artery disease) (I25.10) Active confirmed Problem Pleural effusion (87718850) Pleural effusion (J90) Active confirmed Problem Multiple pulmonary nodules (522932147) Multiple pulmonary nodules (R91.8) Active confirmed Problem Calcified lymph nodes (162921599) Calcified lymph nodes (I89.8) Active confirmed Problem Pericardial effusion (088528350) Pericardial effusion (I31.39) Active confirmed Vital Signs Heart Rate 83 /min 07/21/2024 Temperature 97.0 degrees Fahrenheit 07/21/2024 Respiratory Rate 18 /min 07/21/2024 Oximetry 96.8 % 07/21/2024 Blood pressure diastolic 73 mm Hg 07/21/2024 Height 72 in 07/21/2024 Blood pressure systolic 113 mm Hg 07/21/2024 Weight 196.4 lbs 07/21/2024 BMI 26.63 kg/m2 07/21/2024 Encounters Encounter Location Date Provider Diagnosis Pulmonary Medicine [place] [address] [place] [address] 01/15/2024 Calin Gotti Chronic cough R05.3 ; Pleural effusion J90 ; Multiple pulmonary nodules R91.8 ; Pericardial effusion I31.39 ; Elevated erythrocyte sedimentation rate R70.0 and Calcified lymph nodes I89.8 Pulmonary Medicine [place] [address] [place] [address] 07/21/2024 Calin Gotti Pleural effusion J90 Pulmonary Medicine [place] [address] [place] [address] 01/20/2024 Calin Gotti Assessments Encounter Date Diagnosis (ICD Code) Assessment [...] Discussed considering gabapentin use in the future. 07/21/2024 Pleural effusion (ICD-10 - J90) Chronic [...] able to offer would be referral to [facility] in [place], [place] for a third opinion. At this time, I am not contributing anything additional to his therapy. He will follow-up as needed. 01/15/2024 Pleural effusion (ICD-10 - J90) Chronic right pleural effusion with overall fairly high output. Despite thoracostomy, causes as of yet undetermined. Due to large amount of fluid produced, he now has a Pleurx catheter being drained Saturday. He has seen rheumatology at [facility] and they have not been able to determine a cause. Cytology/patholog y have returned negative for malignancy. I am not of much assistance here at [facility] given our small size. Other thought would be infectious disease. Could also consider checking cytology yet again, but if this really were malignant, overall yield with repeated thoracenteses only approaches roughly 70% of the time for positive diagnosis of malignant effusion. I suggest patient follow-up with [facility] pulmonary for second opinion. Patient states [...] Suspicious for old granulomatous disease. NANDO negative. 07/21/2024 Other Plan Of Treatment No Information Insurance Providers Payer Name Payer Address Payer Phone Subscriber Number Group Number Insured Name Patient Relationship to Insured Coverage Start Date Coverage End Date [employer] MED[employer]ARE [address] [place], [place] [id number] Bryan Harris Self - patient is the insured Medical (General) History Medical History History ICD Code Elevated erythrocyte sedimentation rate R70.0 Pleural effusion J90 Pericardial effusion I31.39 Multiple pulmonary nodules R91.8 Calcified lymph nodes I89.8 CAD (coronary artery disease) I25.10 Surgical History Surgery Date(Month/Year) Right Thoracoscopy/PleurX Catheter place ment-[facility] 11/20/2023 Thoracentesis-09/04/2023 & 10/01/2023 Left TKA 08/23/2014 Right TKA 06/25/2016 EGD 10/21/2020 Hospitalization History Reason Date(Month/Year) Swelling/Edema-[facility] 12/20/2023
--- OUTSIDE RECORDS SUMMARY | 2024-11-24 16:49 | XMS_ITS | Encounter Summary ---
Author Organization [facility] Address [address] [place] [address] Care Team Providers Care Head And Neck Surgeon Name Role Phone Jere Sales MD Unavailable [phone] Calin Gotti DO Unavailable [phone] Jose Antonio Meyers MD Primary Care Provider [phone] Source Comments In the event this information is protected by the Federal Confidentiality of Alcohol and Drug AbusePatient Records regulations: The Federal rules restrict any use of the information to criminally investigate or prosecute any alcohol or drug abuse patient.[facility] Encounter Details Date Type Department Care Team (Late st Contact Info) Description 10/15/2024 Results Follow-Up Gastroenterology [address] [address] Xiomara Santoyo APRN.[place] [address]50 [place] [address] Social History Tobacco Use Types Packs/Day Years Used Date Smoking Tobacco: Never Smokeless Tobacco: Never Alcohol Use Standard Drinks/Week Comments Yes 0 (1 standard drink = 0.6 oz pure alcohol) socially, no drink since 06/2023 [facility] Utilities Answer Date Recorded In the [...] is lower risk 5 12/11/2023 Data from: https://www.neighborhoodatlas.medicine.[facility].edu/. Last address used for calculation 2230 12/11/2023 [...] EDT [place] [address] [place] [address] [place] [address] [place] [address] Follow-up 12/16/2024 12:30 PM EDT Office Visit Vascular Surgery 5700 [facility] [place] [address] Extremity cyanosis [R23.0] 12/16/2024 2:30 PM EDT Office Visit Vascular Surgery 5700 [facility] [place] [address] Extremity cyanosis [R23.0] 12/16/2024 3:30 PM EDT Office Visit [facility]ascular [facility] [address] [facility] [place] [address] Extremity cyanosis [R23.0] 12/22/2024 6:00 PM EDT [facility] Gastroenterology [address] [address] Araseli Wall APRN.MARKETING SALES REPRESENTATIVE [address] [place] [address] Elevated alkaline phosphatase leve 05/21/2025 2:00 PM EST Office Visit Cardiology [address] [place] [address] [place] [address] [facility] [place] [address] 6 month follow up documented as of this encounter Goals Goal Patient Goal Type Associated Problems Recent Progress Patient-Stated? Author Blood Pressure < 130/80 Blood Pressure 120/74( 025 10:15 PM EDT) No Sung Hartley MD documented as of this encounter Visit Diagnoses Not on filedocumented in this encounter Care Teams Head And Neck Surgeon Relationship Specialty [place] [address] [facility] [address] PCP - General Family Medicine 12/29/23 Jere Sales MD [address] [address] Referring Gastroenterology 12/05/20 Calin Gotti DO [address] [place] [address] Internal Medicine 10/16/23 documented as of this encounter
--- OUTSIDE RECORDS SUMMARY | 2024-11-24 16:49 | XMS_ITS | Encounter Summary ---
Author Organization [facility] Address [address] [place] [address] Care Team Providers Care Evp Marketing Name Role Phone Jere Sales MD Unavailable [phone] Calin Gotti DO Unavailable [phone] Jose Antonio Meyers MD Primary Care Provider [phone] Source Comments In the event this information is protected by the Federal Confidentiality of Alcohol and Drug AbusePatient Records regulations: The Federal rules restrict any use of the information to criminally investigate or prosecute any alcohol or drug abuse patient.[facility] Encounter Details Date Type Department Care Team (Late st Contact Info) Description 10/19/2024 Get Medical Advice Pulmonary Medicine [address] [place], [place] [id number] Katerina Pascual PA-C [address] [place] [address] Willie Harris 1950 Social History Tobacco Use Types Packs/Day Years Used Date Smoking Tobacco: Never Smokeless Tobacco: Never Alcohol Use Standard Drinks/Week Comments Yes 0 (1 standard drink = 0.6 oz pure alcohol) socially, no drink since 06/2023 [facility] Utilities Answer Date Recorded In the [...] risk 5 12/11/2023 Data from: https://www.neighborhoodatlas.medicine.[facility].edu/. Last address used for calculation 2230 [...] EDT [place] [address] [place] [address] [place] [address] [place] [address] Follow-up 12/16/2024 12:30 PM EDT Office Visit Vascular Surgery 57[address] [facility] [place] [address] Extremity cyanosis [R23.0] 12/16/2024 2:30 PM EDT Office Visit Vascular Surgery [address] [facility] [place] [address] Extremity cyanosis [R23.0] 12/16/2024 3:30 PM EDT Office Visit Vascular Surgery 5700 [place] [address] Extremity cyanosis [R23.0] 12/22/2024 6:00 PM EDT [facility] Gastroenterology [address] [address] Araseli Wall APRN.MASTER YACHT [address] [facility] [address] Elevated alkaline phosphatase leve 05/21/2025 2:00 PM EST Office Visit Cardiology [address] [place] [address] [place] [address] [facility] [place] [address] 6 month follow up documented as of this encounter Goals Goal Patient Goal Type Associated Problems Recent Progress Patient-Stated? Author Blood Pressure < 130/80 Blood Pressure 120/74( 025 10:15 PM EDT) No Sung Hartley MD documented as of this encounter Visit Diagnoses Not on filedocumented in this encounter Care Teams Evp Marketing Relationship Specialty Start [place] [address] [place] [address] PCP - General Family Medicine 12/29/23 Jere Sales MD [address] [address] Referring Gastroenterology 12/05/20 Calin Gotti DO [address] [place] [address] Internal Medicine 10/16/23 documented as of this encounter
--- OUTSIDE RECORDS SUMMARY | 2024-11-24 16:49 | XMS_ITS | Encounter Summary ---
Author Organization [facility] Address [address] [place] [place] [address] Care Team Providers Care Recording Studio Internship Name Role Phone Jere Sales MD Unavailable [phone] Calin Gotti DO Unavailable [phone] Jose Antonio Meyers MD Primary Care Provider [phone] Source Comments In the event this information is protected by the Federal Confidentiality of Alcohol and Drug AbusePatient Records regulations: The Federal rules restrict any use of the information to criminally investigate or prosecute any alcohol or drug abuse patient.[facility] Reason for Visit * Reason Comments Radiology XR Encounter Details Date Type Department Care Team (Late st Contact Info) Description 08/13/2024 Radiology Radiology [address] [place], [place] [address] Joan Hillman, RT(R) Radiology XR Social History Tobacco Use Types Packs/Day Years Used Date Smoking Tobacco: Never Smokeless Tobacco: Never Alcohol Use Standard Drinks/Week Comments Yes 0 (1 standard drink = 0.6 oz pure alcohol) socially, no drink since 06/2023 [facility] Utilities Answer Date Recorded In the [...] lower risk 5 12/11/2023 Data from: https://www.neighborhoodatlas.medicine.[facility].edu/. Last address used for calculation [...] 12/26/2023 4:30 PM EDT Orlando Welhs RN * Because of a physical, mental, or emotional condition, do you have difficulty doing errands alone such as visiting a doctor's office or shopping? Answer Date of Assessment Author No 12/26/2023 4:30 PM ROBERTT Orlando Welsh RN documented as of this encounter Mental Status * Because of a physical, mental, or emotional condition, do you have serious difficulty concentrating, remembering, or making decisions? Answer Entry Date Author No 12/26/2023 4:30 PM Orlando Coley RN documented in this encounter Progress Notes * Joan Hillman RT(R) - 08/13/2024 9:43 AM EST Radiology Service Progress Note PATIENT NAME: Bryan Harris DATE OF SERVICE: August 13, 2024 TIME: 9:43 AM PATIENT IDENTITY VERIFICATION COMPLETED USING TWO [...] PATIENT PRESENTS WITH AN IMPLANTABLE OR ATTACHED MANAGER PHYSICAL: No RADIOLOGY DEPARTMENT: General X-ray: Exam(s) Completed: Chest X-Ray PERIPHERAL IV DATA: Not applicable SIGNED BY: RT Gaviota(R) August 13, 2024 9:43 AM documented in this encounter Plan of Treatment Upcoming Encounters Date Type Department Care Team (Late st Contact Info) Description 12/15/2024 11:15 AM EDT [place] [address] [place] [address] [place] [address] [place] [address] Follow-up 12/16/2024 12:30 PM EDT Office Visit Vascular Surgery [address] [place] [address] Extremity cyanosis [R23.0] 12/16/2024 2:30 PM EDT Office Visit Vascular Surgery [address] [place] [address] Extremity cyanosis [R23.0] 12/16/2024 3:30 PM EDT Office Visit Vascular Surgery [address] [place] [address] Extremity cyanosis [R23.0] 12/22/2024 6:00 PM EDT [facility] [address] [place] [address] Araseli Wall APRN.CONVEYOR MAN [address] [place] [address] Elevated alkaline phosphatase leve 05/21/2025 2:00 PM EST Office Visit Cardiology [address] [place] [address] [place] [address] [facility] [place] [address] 6 month follow up documented as of this encounter Goals Goal Patient Goal Type Associated Problems Recent Progress Patient-Stated? Author Blood Pressure < 130/80 Blood Pressure 120/74( 025 10:15 PM EDT) No Sung Hartley MD documented as of this encounter Visit Diagnoses Not on filedocumented in this encounter Care Teams Recording Studio Internship Relationship Specialty Start [place] [address] [facility] [place] [address] PCP - General Family Medicine 12/29/23 Jere Sales MD [address] [address] Referring Gastroenterology 12/05/20 Calin Gotti DO [address] [place] [address] Internal Medicine 10/16/23 documented as of this encounter
--- OUTSIDE RECORDS SUMMARY | 2024-11-24 16:49 | XMS_ITS | Encounter Summary ---
Author Organization [facility] Address [address] [place] [address] Care Team Providers Care Canoe Inspector Name Role Phone Jere Sales MD Unavailable [phone] Calin Gotti DO Unavailable [phone] Jose Antonio Meyers MD Primary Care Provider [phone] Source Comments In the event this information is protected by the Federal Confidentiality of Alcohol and Drug AbusePatient Records regulations: The Federal rules restrict any use of the information to criminally investigate or prosecute any alcohol or drug abuse patient.[facility] Encounter Details Date Type Department Care Team (Late st Contact Info) Description 04/27/2024 GI Preprocedure Call [facility] [place] [address] [place] [address] Ronnie Haddad Jr., [address] [place] [address] Social History Tobacco Use Types Packs/Day Years Used Date Smoking Tobacco: Never Smokeless Tobacco: Never Alcohol Use Standard Drinks/Week Comments Yes 0 (1 standard drink = 0.6 oz pure alcohol) socially, no drink since 06/2023 [facility] Utilities Answer Date Recorded In the past [...] place to sleep or slept in a residential (including now)? No 11/21/2023 Area Deprivation Index Answer Date Hari rded National Score (1-100), lower number is lower ri sk 68 12/11/2023 State Score (1-10), lower number is lower risk 5 12/11/2023 Data from: https://www.neighborhoodatlas.medicine.[facility].edu/. Last address used for calculation 2230 [...] EDT [place] [address] [place] [address] [place] [address] [place] [address] Follow-up 12/16/2024 12:30 PM EDT Office Visit Vascular Surgery 57[address] [facility] [place] [address] Extremity cyanosis [R23.0] 12/16/2024 2:30 PM EDT Office Visit Vascular Surgery 57[address] [facility] [place] [place] [address] Extremity cyanosis [R23.0] 12/16/2024 3:30 PM EDT Office Visit Vascular Surgery [address] [place] [address] Extremity cyanosis [R23.0] 12/22/2024 6:00 PM EDT [facility] Gastroenterology [address] [address] Araseli Wall APRN.MEDICINE TECHNOLOGIST [address] [facility] [place] [address] Elevated alkaline phosphatase leve 05/21/2025 2:00 PM EST Office Visit Cardiology [address] [place] [address] [place] [address] [facility] [place] [address] 6 month follow up documented as of this encounter Goals Goal Patient Goal Type Associated Problems Recent Progress Patient-Stated? Author Blood Pressure < 130/80 Blood Pressure 120/74( 025 10:15 PM EDT) No Sung Hartley MD documented as of this encounter Visit Diagnoses Not on filedocumented in this encounter Care Teams Canoe Inspector Relationship Specialty Start [place] [address] [facility] [place] [address] PCP - General Family Medicine 12/29/23 Jere Sales MD [address] [address] Referring Gastroenterology 12/05/20 Calin Gotti DO [address] [place] [address] Internal Medicine 10/16/23 documented as of this encounter
--- OUTSIDE RECORDS SUMMARY | 2024-11-24 16:49 | XMS_ITS | Clinical Summary ---
Author Organization [facility] Address [address] [place] [address] Care Team Providers Care Ultrasound Technol Name Role Phone Jere Sales MD Unavailable [phone] Calin Gotti DO Unavailable [phone] Jose Antonio Meyers MD Primary Care Provider Allergies Active Allergy Reactions Criticality Noted Date Comments Tramadol Mental Status Change Low 12/15/2020 Medications allopurinol (ZYLOPRIM) 300 mg tablet Take 300 mg by mouth once daily. 1 Active atorvastatin (LIPITOR) 10 mg tablet Take 1 tablet by mouth once daily. 1 Active diclofenac (VOLTAREN) 1 % topical gel 4 Active calcium qpo-ezq-C9-Zn-c op-kian 250 mg-40 mg- 125 unit-3.75mg tab Take by mouth. Active ascorbic acid, vitamin C, (VITAMIN C) 500 mg tablet Take 1,000 mg by mouth once daily. Active multivit-min/fe rrous fumarate (MULTI VITAMIN ORAL) Take 1 tablet by mouth once daily. Active guaifenesin/dex tromethorphan (MUCINEX DM ORAL) Take by mouth two times a day. Active loratadine (CLARITIN) 10 mg tablet Take 10 mg by mouth once daily. Active potassium chloride (K-TAB) 20 mEq TbERIndications :Recurrent 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,Hypokalem ia 2 tablets by ORAL/FEEDIN G TUBE route three times a day. 540 tablet 5 025 Active quiNINE 324 mg capsuleIndicati ons:Cramp and spasm Take 1 capsule by mouth twice daily 60 capsule 5 Active torsemide (DEMADEX) 100 mg tabletIndicatio ns:Recurrent 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,Anasarca Take 1 tablet by mouth once daily. 90 tablet 1 5 025 Active famotidine (PEPCID) 20 mg tabletIndicatio ns:Hiatal hernia,Chronic gastritis without bleeding, unspecified gastritis type Take 1 tablet by mouth two times a day. 180 tablet 5 025 Active metOLazone (ZAROXOLYN) 5 mg tabletIndicatio ns:Anasarca Take 1 tablet by mouth once daily. 90 tablet 5 025 Active amoxicillin-cla vulanate potassium (AUGMENTIN) 875-125 mg per tablet Take 1 tablet by mouth every 12 hours for 6 days. 12 tablet 11/19/2024 5:59 PM EDT 5 025 Active amoxicillin (AMOXIL) 500 mg capsule 4 025 Discontinued torsemide (DEMADEX) 100 mg tabletIndicatio ns:Recurrent 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,Anasarca Take 1 tablet by mouth once daily. 90 tablet [address] (PROTONIX) 40 mg tablet Take 40 mg by mouth once daily. 025 Discontinued Active Problems Patient Care Coordination No te Formatting of this note migh t be different from the original. Indication for Surgery: Pleural effusion of unknown etiology Preop LVEF: 67% RVF: Normal Important/Relevant PMH/PSH: 73 year old with a PmHX significant for HTN, hyperlipidemia, gout, GERD and pleural effusion Preoperative Hospital Course: Patient seen 07/2023 for a few months [...] has almost completely resolved on last CT. Now present to surgery for pleurodesis. 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 FINDINGS: no obvious malignancy. About 1500cc of serous fluid aspirated Thoracic Stepdown Assessment/Plan of Major Active Problems - Transferred to Regular Nursing Floor on 11/20/2023 Pleural effusion of unknown etiology: : -Tube: Right Pleurx - cap , 24 fr chest tube towaterseal -Diet: Regular -Afib prophylaxis: metoprolol -GI stress ulcer prophylaxis: PPI -DVT prophylaxis: lovenox 40 mg subQ daily, ALICE reid while in house -Follow final pathology HTN: Chronic. Home med losartan 25 mg daily. Controlled with home med held and metoprolol 25 mg PO BID for afib prophylaxis -Continue home med as BP dictates Hyperlipidemia: Chronic home med lipitor 10 mg daily -Resume home medication Gout: Chronic home med allopurinol 300 mg daily -Resume home med Acute postoperative pain: - Controlled with current regimen of Fent MANAGER COMM[employer]ITY DEVELOPMENT, Tylenol 1000 mg q6hrs, oxycodone 5-10 mg q4hrs PRN, Lidocaine patches Continue current regimen To Do or to Watch: Continue chest tube to waterseal, cap PleurX Remove clement and monitor urine output Pain control Advance diet Wean oxygen as tolerated to keep SpO2 > 92% Discharge Planning: Anticipated Discharge Date: TBD Barriers to Discharge: Chest tubes, post op care, pain control Care Management Discharge Needs: Skilled needs after discharge: PleurX Anticipate discharge to home once clinically stable. Problem Noted Date Diagnosed Date FLOYD (acute kidney injury) 10/15/2024 Esophageal dysphagia 09/24/2024 Lymphocytic colitis 05/19/2024 Lung nodule 05/19/2024 Pleuritis 03/17/2024 Chronic cough 03/17/2024 History of pericarditis 12/25/2023 Elevated sedimentation rate 12/25/2023 Elevated C-reactive protein (CRP) 12/25/2023 Generalized edema 12/20/2023 Primary hypertension 12/20/2023 Pleural effusion, not elsewhere classified 12/19 Postoperative pain 11/21/2023 Pleural effusion 11/20/2023 Obesity, Class I, BMI 30-34.9 10/25/2023 Resolved Problems Problem Noted Date Diagnosed Date Resolved Date Raynaud's phenomenon without gangrene 12/25/2023 12/26/2023 Encounters Date Type Department Care Team Description 11/24/2024 Results Follow-Up Cardiology [address] [place] [address] Zac Mendiola MD 11/23/2024 2:00 PM EDT - 11/23/2024 11:59 PM EDT Hospital Encounter Radiology [address] [place] [address] Hepatomegaly [R16.0] Discharge Disposition: Home 11/23/2024 12:00 PM EDT Office Visit Pulmonary Medicine [address] [address] Triston Riggs MD Pleural effusion (Primary Dx); Pleuritis; Pericardial effusion (noninflammatory) (HCC); Lymphocytic colitis; Other ascites 11/23/2024 10:23 AM EDT - 11/23/2024 1:59 PM EDT Hospital Encounter Radiology [address] [address] Pleural effusion, not elsewhere classified [J90] Discharge Disposition: Home 11/23/2024 Telephone Thoracic Clinic [address] [place] [address] Ronaldo Ramos MD, PhD Received Outside Medical Records 11/20/2024 9:00 AM EDT Office Visit Cardiology [address] [place] [address] Zac Mendiola MD Extremity cyanosis (Primary Dx) 11/19/2024 4:20 PM EDT - 11/19/2024 5:20 PM EDT Surgery Admitting [address] [address] Triston Riggs MD REMOVAL TUNNELED PLUERAL CATH WITH CUFF 11/19/2024 4:19 PM EDT - 11/19/2024 5:00 PM EDT Hospital Encounter Admitting [address] [address] Triston Riggs MD Pleural effusion [J90] Discharge Disposition: Home 11/19/2024 2:00 PM EDT Office Visit Pulmonary Medicine [address] [place] [address] Triston Riggs MD Pleural effusion (Primary Dx) 11/19/2024 1:14 PM EDT - 11/19/2024 4:18 PM EDT Hospital Encounter Radiology [address] [place] [address] Pleural effusion [J90] Discharge Disposition: Home 11/17/2024 Telephone Pulmonary Medicine [address] [address] Amanda Brooks (Pss) Patient Question 11/17/2024 Patient [facility] Emergency Department [address] [place] [address] Provider, Ccf ER Follow Up Appointment 11/13/2024 1:00 PM EDT [place] [address] [facility] [place] [address] Jose Antonio Meyers MD Anasarca (Primary Dx); Recurrent 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; Hepatomegaly; Hiatal hernia; Chronic gastritis without bleeding, unspecified gastritis type; Hypomagnesemia 11/13/2024 Get Medical Advice Gastroenterology [address] [address] Provider, Ccf Willie Harris. 1950 11/12/2024 1:27 PM EDT - 11/12/2024 7:04 PM EDT Emergency [facility] Emergency Department [address] [place] [address] Khurram Magallanes MD Ems, MD Ed Fluid retention, weight gain, abdominal pain, shakes, called in by Discharge Disposition: Home 11/12/2024 Get Medical Advice Gastroenterology [address] [address] Provider, Ccf Willie Harris 1950 11/12/2024 Travel 11/04/2024 12:54 PM EDT - 11/04/2024 11:59 PM EDT Hospital Encounter [facility] [place] [address] [place] [address] Other ascites [R18.8] Discharge Disposition: Home 11/04/2024 12:54 PM EDT - 11/04/2024 11:59 PM EDT Hospital Encounter [facility] [place] Scan [address] [place] [address] Discharge Disposition: Home 11/04/2024 Telephone [facility] [place] [address] [place] [address] Imaging[facility] Radiology CT; Patient Update 11/03/2024 Results Follow-Up Gastroenterology [address] [address] Xiomara Santoyo, ASSEMBLER [employer]OL[employer].HVAC SERVICE MANAGER 11/03/2024 [place] [address] [place] [address] Jose Antonio Meyers MD Pleural effusion (Primary Dx) 10/31/2024 Results Follow-Up Gastroenterology [address] [address] Xiomara Santoyo, ASSEMBLER [employer]OL[employer].HVAC SERVICE MANAGER 10/27/2024 Orders Only Pulmonary Medicine [address] [place] [address] Vilma Graff MA Pleural effusion (Primary Dx) 10/23/2024 1:30 PM EDT - 10/23/2024 11:59 PM EDT Hospital Encounter [facility] Radiology Ultrasound [address] [place] [address] Elevated alkaline phosphatase level [R74.8] Discharge Disposition: Home 10/23/2024 Telephone Thoracic Clinic [address] [place] [address] Ronaldo Ramos MD, PhD Received Outside Medical Records 10/20/2024 Results Follow-Up Gastroenterology [address] [place] [address] Xiomara Santoyo APRN.HVAC SERVICE MANAGER 10/19/2024 Get Medical Advice Pulmonary Medicine [address] [place] [address] Katerina Pascual PA-C Stan Moyer 1950 10/19/2024 [place] [address] [place] [address] Jose Antonio Meyers MD Refill Request 10/15/2024 9:20 AM EDT Office Visit [facility] [address] [place] [phone] Ar Suarez MD FLOYD (acute kidney injury) (Primary Dx); Elevated BUN; Elevated serum creatinine; Decreased GFR; Lymphocytic colitis; Pleural effusion, not elsewhere classified; Generalized edema 10/15/2024 Results Follow-Up Gastroenterology [address] [place] [phone] Xiomara Santoyo APRN.HVAC SERVICE MANAGER 10/15/2024 Orders Only Pulmonary Medicine [address] [place], [place] [id number] Vilma Graff MA Serositis (HCC) (Primary Dx) 10/15/2024 Orders Only Pulmonary Medicine [address] [place] [address] Vilma Graff MA 10/15/2024 Results Follow-Up Gastroenterology [address] [place] [phone] Xiomara Santoyo APRN.HVAC SERVICE MANAGER 10/15/2024 Patient [facility] [address] [place] [phone] Ar Suarez MD 10/14/2024 3:00 PM EDT Office Visit Gastroenterology [address] [place] [phone] Xiomara Santoyo APRN.HVAC SERVICE MANAGER Elevated BUN (Primary Dx); Elevated serum creatinine; Decreased GFR; Elevated alkaline phosphatase level 10/14/2024 1:37 PM EDT - 10/14/2024 2:06 PM EDT Hospital Encounter Admitting [address] [place] [phone] Triston Riggs MD 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] Discharge Disposition: Home 10/14/2024 1:30 PM EDT - 10/14/2024 2:30 PM EDT Surgery Admitting [address] [place] [phone] Roseann Rosario MD THORACENTESIS NEEDLE OR CATHETER ASPIRATION OF THE PLEURAL SPACE W IMAGING GUIDANCE 10/14/2024 1:00 PM EDT Office Visit Pulmonary Medicine [address] [place], [place] [phone] Triston Riggs MD Clement, Stephanie, PA-C Pleural effusion (Primary Dx) 10/13/2024 12:52 PM EDT - 10/13/2024 11:59 PM EDT Hospital Encounter Radiology [address] [place] [place] [address] [place] [address] Cough, unspecified type [R05.9] Discharge Disposition: Home 10/13/2024 Travel 10/10/2024 Telephone Admitting [address] [place] [phone] Hui Ivey HUC Appointment 10/07/2024 Get Medical Advice Pulmonary Medicine [address] [place], [place] [phone] Katerina Pascual PA-C Stan Moyer 1950 10/02/2024 1:15 PM EDT - 10/02/2024 3:20 PM EDT Hospital Encounter Admitting [address] [address] Merlyn Zavala MD 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] Discharge Disposition: Home 10/02/2024 11:46 AM EDT - 10/02/2024 12:46 PM EDT Surgery Admitting [address] [address] Merlyn Zavala MD THORACENTESIS NEEDLE OR CATHETER ASPIRATION OF THE PLEURAL SPACE W IMAGING GUIDANCE 10/02/2024 Get Medical Advice Gastroenterology [address] [place] [address] Sue Terrell MD Stan Moyer 1950 10/02/2024 Get Medical Advice Gastroenterology [address] [place] [phone] Sue Terrell MD Stan Moyer 1950 10/02/2024 Abstract Pulmonary Medicine [address] [place] [address] Katerina Pascual PA-C 10/02/2024 Telephone Admitting 2069 [place] [address] Hui Ivey HUC Appointment Confirmation 09/25/2024 11:21 AM EDT Anesthesia Event Gastroenterology 2049 [place] [address] Nick Shipman MD 09/25/2024 10:30 AM EDT - 09/25/2024 11:59 PM EDT Hospital Encounter Gastroenterology [address] [place] [phone] Shay Dennis MD Esophageal dysphagia [R13.19] Discharge Disposition: Home 09/23/2024 Telephone Thoracic Clinic [address] [place] [address] Ronaldo Ramos MD, PhD Received Outside Medical Records 09/21/2024 Get Medical Advice Pulmonary Medicine [address] [place], [place] [address] Triston Riggs MD Stan Moyer 1950 Steroid Injections 09/18/2024 Patient Msg Gastroenterology [address] [place] [phone] Provider, Ccf Procedure Instructions for EGD scheduled on 09/2509/18/2024 GI Preprocedure Call Gastroenterology [address] [place] [phone] Melinda Calderón RN 09/14/2024 Telephone Pulmonary Medicine [address] [place] [phone] Amanda Brooks (Pss) Patient Update 09/08/2024 11:22 AM EDT - 09/08/2024 11:41 AM EDT Hospital Encounter Admitting [address] [place] [phone] Roseann Rosario MD 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] Discharge Disposition: Home 09/08/2024 10:30 AM EDT - 09/08/2024 11:30 AM EDT Surgery Admitting [address] [address] Roseann Rosario MD THORACENTESIS NEEDLE OR CATHETER ASPIRATION OF THE PLEURAL SPACE W IMAGING GUIDANCE 09/08/2024 Orders Only Pulmonary Medicine [address] [place], [place] [phone] Roseann Rosario MD 09/04/2024 1:15 PM EDT [place] [address] [address] [place] [address] Jose Antonio Meyers MD Recurrent 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 (Primary Dx); Hypokalemia; Lymphocytic colitis; Anemia, unspecified type; Chronic insomnia 09/04/2024 10:30 AM EDT - 09/04/2024 11:30 AM EDT Surgery Admitting [address] [address] James Salinas MD ULTRASOUND CHEST REAL TIME W/IMAGE DOCUMENTATION 09/04/2024 10:25 AM EDT - 09/04/2024 11:00 AM EDT Hospital Encounter Admitting [address] [place] [phone] James Salinas MD 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] Discharge Disposition: Home 09/04/2024 Telephone HOSP MAIN G061 [address] [place] [address] 09/02/2024 Telephone HOSP MAIN G061 [address] [place] [address] Appointment (Thoracentesis) 09/02/2024 Telephone Admitting [address] [place] [address] Della Tinajero, ASSEMBLER [employer].HVAC SERVICE MANAGER Post Dc Program Call - Needs Attn 09/02/2024 Travel 09/01/2024 [place] [address] [place] [address] Jose Antonio Meyers MD Recurrent 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 (Primary Dx) 08/28/2024 [place] [address] [facility] [place] [address] Jose Antonio Meyers MD Recurrent 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 (Primary Dx) 08/28/2024 Get Medical Advice Pulmonary Medicine [address] [place], [place] [address] Triston Riggs MD Stan Moyer. 1950 08/26/2024 Results Follow-Up Gastroenterology [address] [place] [phone] Sue Terrell MD 08/25/2024 Get Medical Advice Pulmonary Medicine [address] [place], [place] [address] Triston Riggs MD Stan Moyer . 1950 08/24/2024 11:00 AM EDT Office Visit Gastroenterology [address] [place] [phone] Sue Terrell MD Lymphocytic colitis (Primary Dx); Esophageal dysphagia 08/24/2024 Travel from Last 3 Months Immunizations Immunization Administration Dates Next Due COVID-19 original vaccine, a ge 12+ yr, monovalent ([employer]-Best Teacher - PURPLE TOP) 09/13/2020,08/22/2020,08/15/2020 influenza (HD-IIV3) vaccine, age 65+ yr, high dose, trivalent, PF (FLUZONE HIGH-DOSE) 05/27/2024 influenza (IIV3) vaccine, tr ivalent (AFLURIA, FLULAVAL, FLUVIRIN, FLUZONE) 05/27/2024 influenza (aIIV3) vaccine, a ge 65+ yr, trivalent, PF (FLUAD) 05/09/2020 influenza vaccine, unspecified formulation 05/09 pneumococcal conjugate (PCV1 3) vaccine, 13 valent (PREVNAR 13) 11/26/2016 pneumococcal polysaccharide (PPV23) vaccine, 23 valent (PNEUMOVAX 23) 02/03/2018 respiratory syncytial virus (RSV) vaccine, adjuvanted (AREXVY) 05/27/2024 tetanus diphtheria (Td) vacc ine, age 7+ yr, 5 Lf tetanus, PF (TENIVAC) 08/30/2018,06/04/2018 tetanus diphtheria pertussis (Tdap) vaccine, age 7+ yr (ADACEL, BOOSTRIX) 05/27/2024 zoster (RZV) vaccine, recomb inant (SHINGRIX) 08/30/2018 Family History Medical History Relation Comments Heart Father Colon Cancer No Family History Relation Status Comments Father Social History Tobacco Use Types Packs/Day Years Used Date Smoking Tobacco: Never Smokeless Tobacco: Never Tobacco Cessation:Counseling Given: Not Answered Alcohol Use Standard Drinks/Week Comments Yes 0 (1 standard drink = 0.6 oz pure alcohol) socially, no drink since 06/2023 [facility] Utilities Answer Date Recorded In the past 12 months has th e [employer], [employer], oil, or water [employer] threatened to shut off services in your [...] place to sleep or slept in a usp (including now)? No 11/21/2023 Area Deprivation Index Answer Date Hari rded National Score (1-100), lower number is lower ri sk 68 12/11/2023 State Score (1-10), lower number is lower risk 5 12/11/2023 Data from: https://www.neighborhoodatlas.medicine.[facility]/. Last address used for calculation [...] Mass Index 23.46 11/20/2024 9:04 AM EDT Plan of Treatment Upcoming Encounters Date Type Department Care Team (Late st Contact Info) Description 12/15/2024 11:15 AM ED[place] [address] [place] [address] [place] [address] [place] [address] Follow-up 12/16/2024 12:30 PM EDT Office Visit Vascular Surgery [address] [address] Extremity cyanosis [R23.0] 12/16/2024 2:30 PM EDT Office Visit Vascular Surgery [address] [address] Extremity cyanosis [R23.0] 12/16/2024 3:30 PM EDT Office Visit Vascular Surgery [address] [place] [address] Extremity cyanosis [R23.0] 12/22/2024 6:00 PM EDT [facility] Gastroenterology [address] [address] Araseli Wall APRN.HVAC SERVICE MANAGER [address] [place] [address] Elevated alkaline phosphatase leve 05/21/2025 2:00 PM EST Office Visit Cardiology [address] [place] [address] [place] [address] [facility] [place] [address] 6 month follow up Health Maintenance Due Date Last Done Comments Anxiety Screening 1969 Depression Screening 1969 Hepatitis A Vaccine (1 of 2 - Risk 2-dose series) 1970 CT Colonography 1996 Cologuard (FIT-DNA) 1996 Fecal Occult Blood 1996 Sigmoidoscopy 1996 Hepatitis B Vaccine (1 of 3 - Risk 3-dose series) 2011 Covid-19 Vaccine ( - 2023-2 5 season) 2024 05/10/2021, 09/13/2020, 08/22/2020, Additional history exists Advance Directive Discussion 06/17/2024 Colonoscopy 04/28/2025 04/28/2024 Colorectal Cancer Screening 04/28/2025 Annual PCP Team Chronic Dise ase Visit 11/13/2025 11/13/2024 BP Controlled (<130/80) 11/23/2025 11/23/2024 Diabetes Screening 11/18/2027 11/17/2024, 0 11/12/2024, 11/05/2024, Additional history exists Lipid Screening 05/18/2029 05/18/2024, 12/20/2023 DTaP,Tdap,Td Vaccine (2 - Td or Tdap) 05/27/2034 05/27/2024, 08/30/2018, 06/04/2018 Pneumococcal Vaccine: 50+ Completed 02/03/2018, 05/2017 Shingrix Vaccine Discontinued 08/30/2018 Influenza Vaccine Completed 05/27/2024, , 05/09/2020, Additional history exists RSV Vaccine Completed 05/27/2024 Hepatitis C Screening Completed 11/17/2024 , 11/17/2024, 11/17/2024 Goals Goal Patient Goal Type Associated Problems Recent Progress Patient-Stated? Author Blood Pressure < 130/80 Blood Pressure 120/74( 025 10:15 PM EDT) Merlyn Farrell MD Medical Devices Implanted Type Area Fur Glosser Device Identifier Shelf Expiration Date Model / Serial / Lot Catheter Catheter Right: Chest Description:Pleur-x catheter Joint - Knee Joint - Knee Bilateral : Bone - Knee Screw Screw Right: Bone - Wrist Procedures Procedure Name Priority Date/Time Associated Diagnosis Comments XR CHEST 2V FRONTAL/LAT Routine 11/23/2024 12:33 PM EDT Pleural effusion, not elsewhere classified LVEF TRANSTHORACIC ECHO Routine 11/23/2024 9:16 AM EDT ECHO Routine 11/23/2024 9:16 AM EDT Extremity cyanosis XR CHEST 1V FRONTAL PORT STAT 11/19/2024 5:18 PM EDT US CHEST (POC) H23 USE ONLY Routine 11/19/2024 4:45 PM EDT Pleural effusion RMVL NDWELLG JUANIS PLEURAL CATH W/CUFF 11/19/2024 4:15 PM EDT Pleural effusion XR CHEST 2V FRONTAL/LAT Routine 11/19/2024 1:26 PM EDT Pleural effusion HEPATITIS C ANTIBODY IA WITH CONFIRMATION Routine 11/17/2024 1:53 PM EDT Hepatomegaly HEP B SURF AG SCRN Routine 11/17/2024 1: 53 PM EDT Hepatomegaly HEP B CORE AB IGM Routine 11/17/2024 1:5 3 PM EDT Hepatomegaly HEP A AB IGM Routine 11/17/2024 1:53 PM EDT Hepatomegaly MAGNESIUM BLD Routine 11/17/2024 1:53 PM EDT Hypomagnesemia COMPREHENSIVE METABOLIC PANEL Routine 11/17/2024 1:53 PM EDT Hepatomegaly COPPER BLOOD Routine 11/17/2024 1:53 PM EDT Hepatomegaly IRON + TIBC Routine 11/17/2024 1:53 PM EDT Hepatomegaly HEPATITIS C VIRUS (HCV) RNA, QUANTITATIVE PCR, PLASMA/SERUM Routine 11/17/2024 1:53 PM EDT Hepatomegaly HEP ACUTE PANEL BL Routine 11/17/2024 1: 53 PM EDT Hepatomegaly HIGH SENSITIVITY TROPONIN T (THIRD) 3 HRS AFTER INITIAL STAT 11/12/2024 5:13 PM EDT US DVT LOWER BILATERAL STAT 4:18 PM EDT HIGH SENSITIVITY TROPONIN T (SECOND) STAT 11/12/2024 3:11 PM EDT XR CHEST 2V FRONTAL/LAT STAT 11/12/2024 1:49 PM EDT HIGH SENSITIVITY TROPONIN T (INITIAL) STAT 11/12/2024 1:30 PM EDT NT PRO BNP STAT 11/12/2024 1:30 PM EDT CBC + DIFF STAT 11/12/2024 1:30 PM EDT MAGNESIUM BLD STAT 11/12/2024 1:30 PM EDT COMPREHENSIVE METABOLIC PANEL STAT 11/12/2024 1:30 PM EDT ECG COMPLETE STAT 11/12/2024 1:24 PM EDT MAGNESIUM BLD Routine 11/05/2024 11:42 AM EDT Pleural effusion COMPLETE BLOOD COUNT Routine 11/05/2024 11:42 AM EDT Pleural effusion BASIC METABOLIC PANEL Routine 11/05/2024 11:42 AM EDT Pleural effusion CT ENTEROGRAPHY W IVCON Routine 11/04/2024 3:04 PM EDT Other ascites Generalized abdominal pain FAT, FECAL QUAL Routine 10/28/2024 11:00 AM EDT Other ascites Generalized abdominal pain US ABD SPLEEN - NB 10/23/2024 2: 18 PM EDT US ABD RIGHT UPPER QUADRANT Routine 10/23/2024 2:18 PM EDT Elevated alkaline phosphatase level IGG Routine 10/23/2024 1:18 PM EDT Serositis (HCC) IGG SUBCLASS 1,2,3,4 Routine 10/23/2024 1:18 PM EDT Serositis (HCC) LIPASE BLD Routine 10/23/2024 1:18 PM EDT Serositis (HCC) AMYLASE BLD Routine 10/23/2024 1:18 PM EDT Serositis (HCC) IGG SUBCLASSES BLD Routine 10/23/2024 1: 18 PM EDT Serositis (HCC) ALKALINE PHOSPHATASE ISOENZYMES (P) Routine 10/15/2024 10:25 AM EDT Elevated alkaline phosphatase level ALKALINE PHOSPHATASE Routine 10/15/2024 10:25 AM EDT Elevated alkaline phosphatase level SED RATE WESTERGREN Routine 10/15/2024 1 0:25 AM EDT Elevated BUN Elevated serum creatinine Decreased GFR C-REACTIVE ULTRA SEN Routine 10/15/2024 10:25 AM EDT Elevated BUN Elevated serum creatinine Decreased GFR CBC + DIFF Routine 10/15/2024 10:25 AM EDT Elevated BUN Elevated serum creatinine Decreased GFR COMPREHENSIVE METABOLIC PANEL Routine 10/15/2024 10:25 AM EDT Elevated BUN Elevated serum creatinine Decreased GFR ALK PHOS ISOENZYM BL Routine 10/15/2024 10:25 AM EDT Elevated alkaline phosphatase level PROTEIN CREATININE RATIO Routine 10/15/2024 10:09 AM EDT Elevated serum creatinine UA DIP, URINE (POC) Routine 10/15/2024 9 :38 AM EDT GGT BLD Routine 10/14/2024 3:53 PM EDT Elevated alkaline phosphatase level MAGNESIUM BLD Routine 10/14/2024 3:53 PM EDT Elevated BUN Elevated serum creatinine Decreased GFR COMPREHENSIVE METABOLIC PANEL Routine 10/14/2024 3:53 PM EDT Elevated BUN Elevated serum creatinine Decreased GFR COMPLETE BLOOD COUNT Routine 10/14/2024 3:53 PM EDT Elevated BUN Elevated serum creatinine Decreased GFR PROTEIN BFL Routine 10/14/2024 1:53 PM EDT Pleural effusion LDH BODY FLUID Routine 10/14/2024 1:53 PM EDT Pleural effusion THORACENTESIS NEEDLE/CATH PLEURA W/IMAGING 10/14/2024 1:37 PM EDT Bronchiolar disease US CHEST (POC) H23 USE ONLY Routine 10/14/2024 1:15 PM EDT Pleural effusion XR CHEST 2V FRONTAL/LAT Routine 10/13/2024 1:10 PM EDT Cough, unspecified type PT ED PATIENT INFORMATION 10/08/2024 US CHEST (POC) H23 USE ONLY Routine 10/02/2024 12:23 PM EDT THORACENTESIS NEEDLE/CATH PLEURA W/IMAGING 10/02/2024 11:42 AM EDT Bronchiolar disease SURGICAL PATHOLOGY Routine 09/25/2024 11 :32 AM EDT Esophageal dysphagia EGD DIAGNOSTIC Routine 09/25/2024 11:14 AM EDT Esophageal dysphagia COMPLETE BLOOD COUNT Routine 09/11/2024 1:13 PM EDT Anemia, unspecified type BASIC METABOLIC PANEL Routine 09/11/2024 1:13 PM EDT Hypokalemia US CHEST (POC) H23 USE ONLY Routine 09/08/2024 11:00 AM EDT THORACENTESIS NEEDLE/CATH PLEURA W/IMAGING 09/08/2024 10:53 AM EDT Bronchiolar disease US CHEST (POC) H23 USE ONLY Routine 09/04/2024 11:01 AM EDT US CHEST REAL TIME W/IMAGE DOCUMENTATION 09/04/2024 10:20 AM EDT Bronchiolar disease MAGNESIUM BLD Routine 09/03/2024 11:11 AM EDT Recurrent 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 COMPREHENSIVE METABOLIC PANEL Routine 09/03/2024 11:11 AM EDT Recurrent 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 MAGNESIUM BLD Routine 08/28/2024 11:52 AM EDT Recurrent 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 TSH BLD Routine 08/28/2024 11:52 AM EDT Recurrent 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 COMPREHENSIVE METABOLIC PANEL Routine 08/28/2024 11:52 AM EDT Recurrent 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 PT ED DIGESTIVE DISEASE 08/26/2024 MAGNESIUM BLD Routine 08/24/2024 12:32 PM EDT Lymphocytic colitis COMPREHENSIVE METABOLIC PANEL Routine 08/24/2024 12:32 PM EDT Lymphocytic colitis TSH BLD Routine 08/24/2024 12:32 PM EDT Lymphocytic colitis CHOLESTEROL BFL Routine 05/18/2024 12:52 PM EST Pleural effusion COLONOSCOPY (THERAPEUTIC) Routine 04/28/2024 11:16 AM EST from Last 3 Months or Most Recently Relevant to Health Maintenance Results * XR CHEST 2V FRONTAL/LAT (11/23/2024 12:33 PM EDT) Anatomical Region Laterality Modality Chest Other 11/23/2024 12:3 3 PM EDT Impressions 11/23/2024 1:44 PM EDT IMPRESSION: See result. Plater Hot Dip: ALONSO Transcribe Date/Time: Nov 23 2024 1:39P [...] the left seventh rib. Procedure Note Provider, [facility] [place] - 11/23/2024 * * *Final Report* * [...] left seventh rib. IMPRESSION IMPRESSION: See result. Plater Hot Dip: PSCB Transcribe Date/Time: Nov 23 2024 1:39P Dictated by : CRISTOBAL ROACH MD This examination was interpreted and the report reviewed and electronically signed by: CRISTOBAL ROACH MD on Nov 23 2024 1:42PM EST us Triston Riggs MD RAD-PAMA Final Result * ECHO (11/23/2024 9:16 AM EDT) 11/23/2024 9:16 AM EDT [facility] - 11/23/2024 11:30 AM EDT CONCLUSIONS: - [...] the prior echocardiographic exam performed on 03/26/2024 ([id number]). * * * Final * * * [facility] - 11/23/2024 11:30 AM EDT Echocardiography Report: Transthoracic Echo [facility] Office Date of service: 11/23/2024 9:16:58 AM SALES CONSULTANT Ordering physician: ZAC MENDIOLA Exam indication: Lower extremity cyanosis; Fluid retention; History of pleural effusions Technologist: Lilia Pineda Interpreting physician: Aung Lambert MD PATIENT: Name: BRYAN HARRIS : 1950 [...] pad. Zac Mendiola MD ECHO Final Result Performing Organization Address [facility] Co de Phone Number [facility] [address] [phone] * LVEF TRANSTHORACIC ECHO (11/23/2024 9:16 AM EDT) LV Ejection Fraction 52 % [facility] Comment: (2D biplane) EF > 52 An LV Ejection Fraction of > 50% is normal 11/23/2024 9:16 AM EDT Zac Mendiola MD LVEF RESULTS Final Result Performing Organization Address [facility] Co de Phone Number [facility] [address] [place] [address] * XR CHEST 1V FRONTAL PORT (11/19/2024 5:18 PM EDT) Anatomical Region Laterality Modality Chest Radiographic Cece ging 11/19/2024 5:18 PM EDT Impressions 11/19/2024 7:04 PM EDT IMPRESSION: See result. Plater Hot Dip: ALONSO Transcribe Date/Time: Nov 19 2024 6:59P [...] the aorta. Other: . Procedure Note Provider, [facility] [place] - 11/19/2024 * * *Final Report* * [...] aorta. Other: . IMPRESSION IMPRESSION: See result. Plater Hot Dip: [facility] Transcribe Date/Time: Nov 19 2024 6:59P Dictated by : KYLER NICHOLAS MD This examination was interpreted and the report reviewed and electronically signed by: KYLER NICHOLAS MD on Nov 19 2024 7:02PM EST us Triston Riggs MD RAD-PAMA Final Result * US CHEST (POC) H23 USE ONLY (11/19/2024 4:45 PM EDT) Anatomical Region Laterality Modality Other 11/19/2024 4:45 PM EDT us Triston Riggs MD IMAGES Final Result * XR CHEST 2V FRONTAL/LAT (11/19/2024 1:26 PM EDT) Anatomical Region Laterality Modality Chest Other 11/19/2024 1:26 PM EDT Impressions 11/19/2024 4:04 PM EDT IMPRESSION: See result Plater Hot Dip: [facility] Transcribe Date/Time: Nov 19 2024 3:58P Dictated [...] of the left rib/ribs. Procedure Note Provider, [facility] [place] - 11/19/2024 * * *Final Report* * [...] the left rib/ribs. IMPRESSION IMPRESSION: See result Plater Hot Dip: ALONSO Transcribe Date/Time: Nov 19 2024 3:58P Dictated by : KYLER NICHOLAS MD This examination was interpreted and the report reviewed and electronically signed by: KYLER NICHOLAS MD on Nov 19 2024 4:01PM EST Katerina REEVES Final Res ult * MAGNESIUM (11/17/2024 1:53 PM EDT) Only the most recent of7 resultswithin the time period is included. Magnesium 2.3 1.7 - 2.3 mg/dL 11/18/2024 1:52 PM EDT [facility] Blood BLOOD SPECIMEN / Unknown Venipuncture / Unknown 11/17/2024 1:53 PM EDT 11/17/2024 1:53 PM EDT Jose Antonio Meyers MD LABORATORY Final Resul t Performing Organization Address City/[facility] Co de Phone Number [facility] [address] [place] [address], [place] * IRON AND TIBC (11/17/2024 1:53 PM EDT) [facility] Iron 72 41 - 186 ug/dL 11/18/2024 2:24 PM EDT [facility] TIBC 321 232 - 386 ug/dL 11/18/2024 2:24 PM EDT [facility] Transferrin Saturation 22.4 15.0 - 57.0 % 11/18/2024 2:24 PM EDT [facility] Blood BLOOD SPECIMEN / Unknown Venipuncture / Unknown 11/17/2024 1:53 PM EDT 11/17/2024 1:53 PM EDT Jose Antonio Meyers MD LABORATORY Final Resul t Performing Organization Address City/[facility]/ZIP Co de Phone Number [facility] [address] [place] [address], [place] * HEPATITIS C VIRUS (HCV) RNA, QUANTITATIVE PCR, PLASMA/SERUM (11/17/2024 1:53 PM EDT) Pathologist [facility] HCV RNA Not detected Not detected KRISTIE CHARLENE [id number] 11/18/2024 10:20 AM EDT [facility] Blood BLOOD SPECIMEN / Unknown Venipuncture / Unknown 11/17/2024 1:53 PM EDT 11/17/2024 1:53 PM EDT Narrative [facility] - 11/18/2024 10:20 AM EDT charlene HCV is an in vitro nucleic acid amplification test for both the detection and quantitation of hepatitis C virus RNA, in human EDTA plasma or serum, of HCV antibody positive or HCV-infected individuals. The linear range of the assay is 15 to 100,000,000 IU/mL (1.18 - 8.00 log IU/mL). The lower limit of detection of the assay is 15 IU/mL. us Jose Antonio Meyers MD LABORATORY Final Resul t Performing Organization Address [facility] Co de Phone Number [facility] [address] [place] [address], [place] * HEPATITIS B SURFACE ANTIGEN (11/17/2024 1:53 PM EDT) HBsAg Negative Negative 11/18/2024 11:16 AM EDT [facility] Blood BLOOD SPECIMEN / Unknown Venipuncture / Unknown 11/17/2024 1:53 PM EDT 11/17/2024 1:53 PM EDT us Jose Antonio Meyers MD LABORATORY Final Resul t Performing Organization Address [facility] de Phone Number [facility] [address] [place], [place] [phone], [place] * HEPATITIS B CORE ANTIBODY IGM (11/17/2024 1:53 PM EDT) Hep B Core Ab, IgM Negative Negative 11/18/2024 11:14 AM EDT [facility] Comment:No evidence of recen t infection with Hepatitis B virus. Should recent infection be suspected, repeat testing may be considered 3-4 weeks after this draw. Blood BLOOD SPECIMEN / Unknown Venipuncture / Unknown 11/17/2024 1:53 PM EDT 11/17/2024 1:53 PM EDT Jose Antonio Meyers MD LABORATORY Final Resul t Performing Organization Address [facility] Co de Phone Number [facility] [address] [phone], [place] * HEPATITIS A ANTIBODY IGM (11/17/2024 1:53 PM EDT) Hep A Ab, IgM Negative Negative 11/18/2024 11:20 AM EDT [facility] Comment:No evidence of recen t infection with Hepatitis A virus. Blood BLOOD SPECIMEN / Unknown Venipuncture / Unknown 11/17/2024 1:53 PM EDT 11/17/2024 1:53 PM EDT Jose Antonio Meyers MD LABORATORY Final Resul t Performing Organization Address [facility] Phone Number [facility] [address] [place] [address], [place] * (ABNORMAL) COPPER BLOOD (11/17/2024 1:53 PM EDT) Copper 159(H) 70 - 140 ug/dL 11/18/2024 11:03 AM EDT [facility] Comment:This test was develo ped, and its performance characteristics determined by the [facility] Department of Pathology and Laboratory Medicine. It has not been cleared or approved by the FDA. The [facility] Department of Pathology and Laboratory Medicine is regulated under CLIA as qualified to perform high- complexity testing. This test is used for clinical purposes. It should not be regarded as investigational or for research. Blood BLOOD SPECIMEN / Unknown Venipuncture / Unknown 11/17/2024 1:53 PM EDT 11/17/2024 1:53 PM EDT Jose Antonio Meyers MD LABORATORY Final Resul t Performing Organization Address [facility] Co de Phone Number [facility] [address] [phone], [place] * (ABNORMAL) COMPREHENSIVE METABOLIC PANEL (11/17/2024 1:53 PM EDT) Only the most recent of7 resultswithin the time period is included. Protein, Total 7.3 6.3 - 8.0 g/dL 11/18/2024 1:52 PM EDT [facility] Albumin 4.1 3.9 - 4.9 g/dL 11/18/2024 1:52 PM EDT [facility] Calcium, Total 9.5 8.5 - 10.2 mg/dL 11/18/2024 1:52 PM EDT [facility] Bilirubin, Total 0.8 0.2 - 1.3 mg/dL 11/18/2024 1:52 PM EDT [facility] Alkaline Phosphatase 112 38 - 113 U/L 11/18/2024 1:52 PM EDT [facility] AST 47(H) 14 - 40 U/L 11/18/2024 1:52 PM EDT [facility] ALT 34 10 - 54 U/L 11/18/2024 1:52 PM EDT [facility] Glucose 104(H) 74 - 99 mg/dL 11/18/2024 1:52 PM EDT [facility] Comment: The [place] [employer] (ADA) provides guidance for cutoff [...] Standards of Medical Care in Diabetes 2016, [place] [employer]. Diabetes Care. 2016.39(Suppl 1). BUN 55(H) 9 - 24 mg/dL 11/18/2024 1:52 PM EDT [facility] Creatinine 1.38(H) 0.73 - 1.22 mg/dL 11/18/2024 1:52 PM EDT [facility] Sodium 139 136 - 144 mmol/L 11/18/2024 1:52 PM EDT [facility] Potassium 3.8 3.7 - 5.1 mmol/L 11/18/2024 1:52 PM EDT [facility] Chloride 97(L) 98 - 107 mmol/L 11/18/2024 1:52 PM EDT [facility] CO2 30 22 - 30 mmol/L 11/18/2024 1:52 PM EDT [facility] Anion Gap 12 8 - 15 mmol/L 11/18/2024 1:52 PM EDT [facility] Estimated Glomerular Filtration Rate 54(L) >=60 mL/min/1. 73m 11/18/2024 1:52 PM EDT [facility] Comment:Estimated Glomerular Filtration Rate (eGFR) is [...] Antonio Meyers MD LABORATORY Final Resul t [facility] [address] [place] [address], * HEPATITIS C ANTIBODY IA WITH CONFIRMATION (11/17/2024 1:53 PM EDT) Hep C Antibody IA Negative Negative 11/18/2024 11:05 AM EDT [facility] Comment:The result suggests no evidence of infection with Hepatitis C virus. Should recent infection be suspected, repeat testing may be considered 4-6 weeks after this draw. Blood BLOOD SPECIMEN / Unknown Venipuncture / Unknown 11/17/2024 1:53 PM EDT 11/17/2024 1:53 PM EDT us Jose Antonio Meyers MD LABORATORY Final Resul t Performing Organization Address City/[facility]/ZIP Co de Phone Number [facility] [address] [facility] [address] [place] [phone], [place] * (ABNORMAL) HIGH SENSITIVITY TROPONIN T (THIRD) 3 HRS AFTER INITIAL (11/12/2024 5:13 PM EDT) HELIO High Sensitivity 16(H) <12 ng/L 11/12/2024 5:40 PM EDT [facility] Blood BLOOD SPECIMEN / Unknown Venipuncture / Unknown 11/12/2024 5:13 PM EDT 11/12/2024 5:17 PM EDT us Juliano Garcia MD LABORATORY Final Result Performing Organization Address [facility] Co de Phone Number [facility] [address] [phone], [place] * US DVT LOWER BILATERAL (11/12/2024 [...] of the left and right lower extremities. Plater Hot Dip: PSCB Transcribe Date/Time: Nov 12 2024 4:27P [...] calf, not otherwise assessed. Procedure Note Provider, [facility] [place] - 11/12/2024 * * *Final Report* * * DATE OF EXAM: Nov 12 2024 4:18PM [facility] - US DVT LOWER ROCIO / [...] of the left and right lower extremities. Plater Hot Dip: PSCB Transcribe Date/Time: Nov 12 2024 4:27P Dictated by : TAJ CINTRON MD This examination was interpreted and the report reviewed and electronically signed by: CHANTEL HEIN MD on Nov 12 2024 4:30PM EST Khurram Magallanes MD US-PAMA Final Result * (ABNORMAL) HIGH SENSITIVITY TROPONIN T (SECOND) (11/12/2024 3:11 PM EDT) HELIO High Sensitivity 17(H) <12 ng/L 11/12/2024 3:45 PM EDT [facility] Blood BLOOD SPECIMEN / Unknown Venipuncture / Unknown 11/12/2024 3:11 PM EDT 11/12/2024 3:15 PM EDT us Juliano Garcia MD LABORATORY Final Result [facility] [address] [facility] [address] [address], [place] * XR CHEST 2V FRONTAL/LAT (11/12/2024 1:49 PM EDT) Anatomical Region Laterality Modality Chest Radiographic Cece ging 11/12/2024 1:49 PM EDT Impressions 11/12/2024 1:55 PM EDT IMPRESSION: Similar appearance of small right loculated pleural effusion compared to prior. No new radiographic abnormalities. Plater Hot Dip: PSCB Transcribe Date/Time: Nov 12 2024 1:50P Dictated by : OCTAVIO WOODARD MD This examination was interpreted and [...] changes of the spine. Procedure Note Provider, [facility] [place] - 11/12/2024 * * *Final Report* * [...] compared to prior. No new radiographic abnormalities. Plater Hot Dip: PSCB Transcribe Date/Time: Nov 12 2024 1:50P Dictated by : OCTAVIO WOODARD MD This examination was interpreted and the report reviewed and electronically signed by: MERLYN EASTON MD on Nov 12 2024 1:53PM EST Juliano Garcia MD RAD-PAMA Final Result * (ABNORMAL) HIGH SENSITIVITY TROPONIN T (INITIAL) (11/12/2024 1:30 PM EDT) HELIO High Sensitivity 18(H) <12 ng/L 11/12/2024 2:04 PM EDT [facility] Blood BLOOD SPECIMEN / Unknown Venipuncture / Unknown 11/12/2024 1:30 PM EDT 11/12/2024 1:34 PM EDT us Juliano Garcia MD LABORATORY Final Result [facility] [address] [address], [place] * (ABNORMAL) NT PRO BNP (11/12/2024 1:30 PM EDT) Pathologist [facility] NT Pro BNP 465(H) <125 pg/mL 11/12/2024 2:04 PM EDT [facility] Blood BLOOD SPECIMEN / Unknown Venipuncture / Unknown 11/12/2024 1:30 PM EDT 11/12/2024 1:34 PM EDT us Juliano Garcia MD LABORATORY Final Result [facility] [address] [facility] [address] [place] [address], * (ABNORMAL) COMPLETE BLOOD COUNT AND DIFFERENTIAL (11/12/2024 1:30 PM EDT) Only the most recent of2 resultswithin the time period is included. Pathologist [facility] WBC 8.79 3.70 - 11.00 k/uL 11/12/2024 1:39 PM EDT [facility] RBC 3.82(L) 4.20 - 6.00 m/uL 11/12/2024 1:39 PM EDT [facility] Hemoglobin 12.3(L) 13.0 - 17.0 g/dL 11/12/2024 1:39 PM EDT [facility] Hematocrit 37.1(L) 39.0 - 51.0 % 11/12/2024 1:39 PM EDT [facility] MCV 97.1 80.0 - 100.0 fL 11/12/2024 1:39 PM EDT [facility] MCH 32.2 26.0 - 34.0 pg 11/12/2024 1:39 PM EDT [facility] MCHC 33.2 30.5 - 36.0 g/dL 11/12/2024 1:39 PM EDT [facility] RDW-CV 16.6(H) 11.5 - 15.0 % 11/12/2024 1:39 PM EDT [facility] Platelet Count 189 150 - 400 k/uL 11/12/2024 1:39 PM EDT [facility] MPV 10.0 9.0 - 12.7 fL 11/12/2024 1:39 PM EDT [facility] Neutrophils % 80.0 % 11/12/2024 1:39 PM EDT [facility] Abs Neut 7.03 1.45 - 7.50 k/uL 11/12/2024 1:39 PM EDT [facility] Lymphocytes % 10.4 % 11/12/2024 1:39 PM EDT [facility] Abs Lymph 0.91(L) 1.00 - 4.00 k/uL 11/12/2024 1:39 PM EDT [facility] Monocytes % 7.6 % 11/12/2024 1:39 PM EDT [facility] Abs Lynn 0.67 <0.87 k/uL 11/12/2024 1:39 PM EDT [facility] Eosinophils % 0.0 % 11/12/2024 1:39 PM EDT [facility] Abs Eosin <0.03 <0.46 k/uL 11/12/2024 1:39 PM EDT [facility] Basophils % 0.2 % 11/12/2024 1:39 PM EDT [facility] Abs Baso <0.03 <0.11 k/uL 11/12/2024 1:39 PM EDT [facility] Immature Granulocytes % 1.8 % 11/12/2024 1:39 PM EDT [facility] Abs Immature Gran 0.16(H) <0.10 k/uL 025 1:39 PM EDT [facility] NRBC 0.0 /100 WBC 11/12/2024 1:39 PM EDT [facility] Absolute nRBC <0.01 <0.01 k/uL 11/12/2024 1:39 PM EDT [facility] Diff Type Auto 11/12/2024 1:39 PM EDT [facility] Blood BLOOD SPECIMEN / Unknown Venipuncture / Unknown 11/12/2024 1:30 PM EDT 11/12/2024 1:34 PM EDT Juliano Garcia MD LABORATORY Final Result Performing Organization Address City/[facility]/ZIP Co de Phone Number [facility] [address] [facility] [address] [place] [address], [place] * ECG COMPLETE (11/12/2024 1:24 PM EDT) Pathologist [facility] Ventricular Rate 88 BPM [facility] Atrial Rate 88 BPM [facility] P-R Interval 176 ms [facility] QRS Duration 80 ms [facility] QT Interval 354 ms [facility] QTC Calculation (Bazett) 428 ms [facility] Calculated P [place] 8 degrees [facility] Calculated R [place] 3 degrees [facility] Calculated T [place] 246 degrees [facility] 11/12/2024 1:24 PM EDT Impressions [facility] - 11/22/2024 12:19 PM EDT SINUS RHYTHM WITH OCCASIONAL PREMATURE VENTRICULAR COMPLEXES NONSPECIFIC T WAVE ABNORMALITY ABNORMAL ECG Confirmed by JULIANO GARCIA ([id number]), mapping editor ANA PORTILLO ([id number]) on 11/22/2024 12:18:59 PM Narrative [facility] - 11/22/2024 12:19 PM EDT NAME : BRYAN HARRIS PID : [id number] : 1950 Gender : Male Race : ORD : [id number] Procedure Date : Nov 12 2024 13:24:15 Edit Date : Nov 22 2024 12:19:03 Diagnosis: SINUS RHYTHM WITH OCCASIONAL PREMATURE VENTRICULAR COMPLEXES NONSPECIFIC T WAVE ABNORMALITY ABNORMAL ECG Confirmed by JULIANO GARCIA ([id number]), mapping editor ANA PORTILLO ([id number]) on 11/22/2024 12:18:59 PM Test Reason : Chest Pain Location : 2 : EDNS 003 Overread By : JULIANO GARCIA Edited By : ANA PORTILLO Referred By : , Acquired by : , us Juliano Garcia MD EKG Final Result [facility] [address] [facility] [place] [address] * (ABNORMAL) COMPLETE BLOOD COUNT (11/05/2024 11:42 AM EDT) Only the most recent of3 resultswithin the time period is included. WBC 8.65 3.70 - 11.00 k/uL 11/05/2024 11:44 AM EDT [facility] RBC 3.89(L) 4.20 - 6.00 m/uL 11/05/2024 11:44 AM EDT [facility] Hemoglobin 12.4(L) 13.0 - 17.0 g/dL 11/05/2024 11:44 AM EDT [facility] Hematocrit 38.3(L) 39.0 - 51.0 % 11/05/2024 11:44 AM EDT [facility] MCV 98.5 80.0 - 100.0 fL 11/05/2024 11:44 AM EDT [facility] MCH 31.9 26.0 - 34.0 pg 11/05/2024 11:44 AM EDT [facility] MCHC 32.4 30.5 - 36.0 g/dL 11/05/2024 11:44 AM EDT [facility] RDW-CV 16.2(H) 11.5 - 15.0 % 11/05/2024 11:44 AM EDT [facility] Platelet Count 150 150 - 400 k/uL 11/05/2024 11:44 AM EDT [facility] MPV 9.8 9.0 - 12.7 fL 11/05/2024 11:44 AM EDT [facility] Absolute nRBC <0.01 <0.01 k/uL 11/05/2024 11:44 AM EDT [facility] Blood BLOOD SPECIMEN / Unknown Venipuncture / Unknown 11/05/2024 11:42 AM EDT 11/05/2024 11:42 AM EDT us Jose Antonio Isakov MD LABORATORY Final Resul t [facility] [address] [place] [address] * (ABNORMAL) BASIC METABOLIC PANEL (11/05/2024 11:42 AM EDT) Only the most recent of2 resultswithin the time period is included. Glucose 140(H) 74 - 99 mg/dL 11/05/2024 12:19 PM EDT [facility] Comment: The [place] [employer] (ADA) provides guidance for cutoff [...] Standards of Medical Care in Diabetes 2016, [place] [employer]. Diabetes Care. 2016.39(Suppl 1). BUN 39(H) 9 - 24 mg/dL 11/05/2024 12:19 PM EDT [facility] Creatinine 1.08 0.73 - 1.22 mg/dL 11/05/2024 12:19 PM EDT [facility] Sodium 138 136 - 144 mmol/L 11/05/2024 12:19 PM EDT [facility] Potassium 4.0 3.7 - 5.1 mmol/L 11/05/2024 12:19 PM EDT [facility] Chloride 100 98 - 107 mmol/L 11/05/2024 12:19 PM EDT [facility] CO2 25 22 - 30 mmol/L 11/05/2024 12:19 PM EDT [facility] Anion Gap 13 8 - 15 mmol/L 11/05/2024 12:19 PM EDT [facility] Calcium, Total 9.0 8.5 - 10.2 mg/dL 11/05/2024 12:19 PM EDT [facility] Estimated Glomerular Filtration Rate 72 >=60 mL/min/1. 73m 11/05/2024 12:19 PM EDT [facility] Comment:Estimated Glomerular Filtration Rate (eGFR) [...] BLOOD SPECIMEN / Unknown Venipuncture / Unknown 11/05/2024 11:42 AM EDT 11/05/2024 11:42 AM EDT Jose Antonio Meyers MD LABORATORY Final Resul t [facility] [address] [place] [id number] * CT ENTEROGRAPHY W IVCON (11/04/2024 3:04 PM EDT) Anatomical Region Laterality Modality Abdomen Computed Tomogra phy 11/04/2024 3:04 PM EDT Impressions 11/04/2024 5:16 PM EDT IMPRESSION: NO ACTIVE INFLAMMATORY SMALL BOWEL CROHN'S DISEASE. SUSPECTED CHRONIC LIVER DISEASE WITH SMALL VOLUME ASCITES. SMALL RIGHT PLEURAL EFFUSION WITH RIGHT PLEURAL CATHETER. SMALL HIATAL HERNIA. Plater Hot Dip: [facility] Transcribe Date/Time: Nov 04 2024 3:57P Dictated by : IZABELA LAMBERT MD This examination was interpreted and the report reviewed and electronically signed by: IZABELA LAMBERT MD on Nov 04 2024 5:14PM EST Narrative 11/04/2024 5:16 PM EDT * * *Final Report* * * DATE OF EXAM: Nov 04 2024 3:04PM [facility] 0545 - CT ENTEROGRAPHY W IVCON / PROCEDURE REASON: multiple diagnoses * * * * Physician Interpretation * * * * CT ABDOMEN AND PELVIS WITH INTRAVENOUS CONTRAST AND NEUTRAL ORAL CONTRAST(CT ENTEROGRAPHY) HISTORY: Diarrhea TECHNIQUE: CT of the abdomen and pelvis using single phase Enterography technique CONTRAST: IV: 100 ml of Omnipaque 350 Oral: [address] RADIATION DOSE: Integrated Dose-length product (DLP) for this visit = 598 mGy*cm. COMPARISON: 04/22/2024 RESULT: GI Tract: Small hiatal hernia. Small bowel: No mural hyperenhancement or wall thickening. Several decompressed segments, likely peristalsis. Colon: No mural hyperenhancement or wall thickening. Strictures: None Fistulae/Sinus tracts: None Abscess: None Abdomen: Liver: Mildly nodular hepatic contour and fissural widening with heterogenous enhancement suggestive for chronic liver disease. No mass. Biliary: No bile duct dilation. Gallbladder is unremarkable. Spleen: No mass. No splenomegaly. Pancreas: No mass or duct dilation. Adrenals: No mass. Kidneys: Enhance symmetrically. No mass, stones, or hydronephrosis. Lymph nodes: No abdominal or pelvic lymphadenopathy. Mesentery/Peritoneum: Small volume ascites, similar to prior CT. No mass or organized fluid collection. Vasculature: The celiac axis and SMA are patent. The portal vein and branches, splenic vein, SMV, and hepatic veins are patent. There are atherosclerotic calcifications without aneurysmal dilation. Pelvis: Trace ascites. No mass or fluid collection. Prostate and bladder unremarkable. Bones/Soft Tissues: Degenerative changes. No traumatic or destructive bone lesion. Lung Bases: Right pleural catheter with small loculated pleural effusion. Right greater than left atelectasis. Localizer images: No additional findings. Procedure Note Provider, [facility] [place] - 11/04/2024 * * *Final Report* * * DATE OF EXAM: Nov 04 2024 3:04PM [facility] 0545 - CT ENTEROGRAPHY W IVCON / PROCEDURE REASON: multiple diagnoses * * * * Physician Interpretation * * * * CT ABDOMEN AND PELVIS WITH INTRAVENOUS CONTRAST AND NEUTRAL ORAL CONTRAST(CT ENTEROGRAPHY) HISTORY: Diarrhea TECHNIQUE: CT of the abdomen and pelvis using single phase Enterography technique CONTRAST: IV: 100 ml of Omnipaque 350 Oral: [address] RADIATION DOSE: Integrated Dose-length product (DLP) for this visit = 598 mGy*cm. COMPARISON: 04/22/2024 RESULT: GI Tract: Small hiatal hernia. Small bowel: No mural hyperenhancement or wall thickening. Several decompressed segments, likely peristalsis. Colon: No mural hyperenhancement or wall thickening. Strictures: None Fistulae/Sinus tracts: None Abscess: None Abdomen: Liver: Mildly nodular hepatic contour and fissural widening with heterogenous enhancement suggestive for chronic liver disease. No mass. Biliary: No bile duct dilation. Gallbladder is unremarkable. Spleen: No mass. No splenomegaly. Pancreas: No mass or duct dilation. Adrenals: No mass. Kidneys: Enhance symmetrically. No mass, stones, or hydronephrosis. Lymph nodes: No abdominal or pelvic lymphadenopathy. Mesentery/Peritoneum: Small volume ascites, similar to prior CT. No mass or organized fluid collection. Vasculature: The celiac axis and SMA are patent. The portal vein and branches, splenic vein, SMV, and hepatic veins are patent. There are atherosclerotic calcifications without aneurysmal dilation. Pelvis: Trace ascites. No mass or fluid collection. Prostate and bladder unremarkable. Bones/Soft Tissues: Degenerative changes. No traumatic or destructive bone lesion. Lung Bases: Right pleural catheter with small loculated pleural effusion. Right greater than left atelectasis. Localizer images: No additional findings. IMPRESSION IMPRESSION: NO ACTIVE INFLAMMATORY SMALL BOWEL CROHN'S DISEASE. SUSPECTED CHRONIC LIVER DISEASE WITH SMALL VOLUME ASCITES. SMALL RIGHT PLEURAL EFFUSION WITH RIGHT PLEURAL CATHETER. SMALL HIATAL HERNIA. Plater Hot Dip: ALONSO Transcribe Date/Time: Nov 04 2024 3:57P Dictated by : IZABELA LAMBERT MD This examination was interpreted and the report reviewed and electronically signed by: IZABELA LAMBERT MD on Nov 04 2024 5:14PM EST us Xiomara Santoyo ASSEMBLER [employer].HVAC SERVICE MANAGER CT-PAMA Final Re sult * FAT, FECAL QUAL (10/28/2024 11:00 AM EDT) Fat, Fecal - Neutral Normal Normal 10/31/2024 12:57 AM EDT [facility] Fat, Fecal - Split Normal Normal 10/31/2024 12:57 AM EDT [facility] Comment: INTERPRETIVE INFORMATION: Fecal Fat Qualitative Neutral fats include the monoglycerides, diglycerides, and triglycerides while split fats are the free fatty acids that are liberated from them. Impaired synthesis or secretion of pancreatic enzymes or bile may cause an increase in neutral fats while an increase in split fats suggests impaired absorption of nutrients. Performed By: [facility] [address] [place] [address] Gluer Machine Operator: Arley Correa MD, PhD CLIA Number: [id number] Stool STOOL SPECIMEN / Unknown Non Blood / Unknown 10/28/2024 11:00 AM EDT 10/28/2024 12:40 PM EDT us Xiomara Santoyo ASSEMBLER [employer].HVAC SERVICE MANAGER LABORATORY Final Re sult [facility] [address] [place] [address] * US ABD SPLEEN - NB (10/23/2024 2:18 PM EDT) Anatomical Region Laterality Modality Ultrasound 10/23/2024 2:18 PM EDT Impressions 10/26/2024 2:36 PM EDT IMPRESSION: 1. Mild nodularity of the liver surface, which may be seen with cirrhosis. No focal hepatic lesions. 2. Small volume abdominal ascites. No splenomegaly. [facility] Transcribe Date/Time: Oct 26 2024 2:30P Dictated by : SANDRA BELTRE MD This examination was interpreted and the report reviewed and electronically signed by: SANDRA BELTRE MD on Oct 26 2024 2:34PM EST Narrative 10/26/2024 2:36 PM EDT * * *Final Report* * * DATE OF EXAM: Oct 23 2024 2:18PM [facility] 1232 - US ABD SPLEEN -NB / PROCEDURE REASON: Elevated alkaline phosphatase level * * * * Physician Interpretation * * * * EXAMINATION: RIGHT UPPER QUADRANT AND SPLEEN ULTRASOUND CLINICAL HISTORY: Elevated alkaline phosphatase TECHNIQUE: Sonography of the right upper quadrant and spleen was performed. Images were obtained and stored in a permanent archive. MQ: URUQ_2 COMPARISON: CT dated 04/22/2024 RESULT: Pancreas: Normal sonographic appearance. Portions obscured: tail Liver: Echotexture: Normal, homogeneous. Echogenicity: Normal Surface contour: Mild nodularity Lesions: None. Biliary: No intrahepatic biliary duct dilation. CBD: 0.4 cm at the hilum. Gallbladder: Unremarkable without stones or sludge. Right Kidney: No hydronephrosis. Ascites: Small volume abdominal ascites. Spleen: The craniocaudal length of the spleen is 9.7 cm, normal. There are no splenic lesions. Procedure Note Provider, [facility] [place] - 10/26/2024 * * *Final Report* * * DATE OF EXAM: Oct 23 2024 2:18PM [facility] 1232 - US ABD SPLEEN -NB / PROCEDURE REASON: Elevated alkaline phosphatase level * * * * Physician Interpretation * * * * EXAMINATION: RIGHT UPPER QUADRANT AND SPLEEN ULTRASOUND CLINICAL HISTORY: Elevated alkaline phosphatase TECHNIQUE: Sonography of the right upper quadrant and spleen was performed. Images were obtained and stored in a permanent archive. MQ: URUQ_2 COMPARISON: CT dated 04/22/2024 RESULT: Pancreas: Normal sonographic appearance. Portions obscured: tail Liver: Echotexture: Normal, homogeneous. Echogenicity: Normal Surface contour: Mild nodularity Lesions: None. Biliary: No intrahepatic biliary duct dilation. CBD: 0.4 cm at the hilum. Gallbladder: Unremarkable without stones or sludge. Right Kidney: No hydronephrosis. Ascites: Small volume abdominal ascites. Spleen: The craniocaudal length of the spleen is 9.7 cm, normal. There are no splenic lesions. IMPRESSION IMPRESSION: 1. Mild nodularity of the liver surface, which may be seen with cirrhosis. No focal hepatic lesions. 2. Small volume abdominal ascites. No splenomegaly. Plater Hot Dip[facility] Transcribe Date/Time: Oct 26 2024 2:30P Dictated by : SANDRA BELTRE MD This examination was interpreted and the report reviewed and electronically signed by: SANDRA BELTRE MD on Oct 26 2024 2:34PM EST us Xiomara Santoyo APRN.CURT US-PAMA Final Re sult * US ABD RIGHT UPPER QUADRANT (10/23/2024 2:18 PM EDT) Anatomical Region Laterality Modality Abdomen Ultrasound 10/23/2024 2:18 PM EDT Impressions 10/26/2024 2:36 PM EDT IMPRESSION: 1. Mild nodularity of the liver surface, which may be seen with cirrhosis. No focal hepatic lesions. 2. Small volume abdominal ascites. No splenomegaly. Plater Hot Dip: ALONSO Transcribe Date/Time: Oct 26 2024 2:30P Dictated by : SANDRA BELTRE MD This examination was interpreted and the report reviewed and electronically signed by: SANDRA BELTRE MD on Oct 26 2024 2:34PM EST Narrative 10/26/2024 2:36 PM EDT * * *Final Report* * * DATE OF EXAM: Oct 23 2024 2:18PM [facility] 1032 - US ABD RIGHT UPPER QUADRANT / PROCEDURE REASON: Elevated alkaline phosphatase level * * * * Physician Interpretation * * * * EXAMINATION: RIGHT UPPER QUADRANT AND SPLEEN ULTRASOUND CLINICAL HISTORY: Elevated alkaline phosphatase TECHNIQUE: Sonography of the right upper quadrant and spleen was performed. Images were obtained and stored in a permanent archive. MQ: URUQ_2 COMPARISON: CT dated 04/22/2024 RESULT: Pancreas: Normal sonographic appearance. Portions obscured: tail Liver: Echotexture: Normal, homogeneous. Echogenicity: Normal Surface contour: Mild nodularity Lesions: None. Biliary: No intrahepatic biliary duct dilation. CBD: 0.4 cm at the hilum. Gallbladder: Unremarkable without stones or sludge. Right Kidney: No hydronephrosis. Ascites: Small volume abdominal ascites. Spleen: The craniocaudal length of the spleen is 9.7 cm, normal. There are no splenic lesions. Procedure Note Provider, [facility] - 10/26/2024 * * *Final Report* * * DATE OF EXAM: Oct 23 2024 2:18PM [facility] 1032 - US ABD RIGHT UPPER QUADRANT / PROCEDURE REASON: Elevated alkaline phosphatase level * * * * Physician Interpretation * * * * EXAMINATION: RIGHT UPPER QUADRANT AND SPLEEN ULTRASOUND CLINICAL HISTORY: Elevated alkaline phosphatase TECHNIQUE: Sonography of the right upper quadrant and spleen was performed. Images were obtained and stored in a permanent archive. MQ: URUQ_2 COMPARISON: CT dated 04/22/2024 RESULT: Pancreas: Normal sonographic appearance. Portions obscured: tail Liver: Echotexture: Normal, homogeneous. Echogenicity: Normal Surface contour: Mild nodularity Lesions: None. Biliary: No intrahepatic biliary duct dilation. CBD: 0.4 cm at the hilum. Gallbladder: Unremarkable without stones or sludge. Right Kidney: No hydronephrosis. Ascites: Small volume abdominal ascites. Spleen: The craniocaudal length of the spleen is 9.7 cm, normal. There are no splenic lesions. IMPRESSION IMPRESSION: 1. Mild nodularity of the liver surface, which may be seen with cirrhosis. No focal hepatic lesions. 2. Small volume abdominal ascites. No splenomegaly. Plater Hot Dip[facility] Transcribe Date/Time: Oct 26 2024 2:30P Dictated by : SANDRA BELTRE MD This examination was interpreted and the report reviewed and electronically signed by: SANDRA BELTRE MD on Oct 26 2024 2:34PM EST Xiomara Santoyo APRN.HVAC SERVICE MANAGER US-PAMA Final Re sult * IGG SUBCLASS 1,2,3,4 (10/23/2024 1:18 PM EDT) IgG Subclass 1 576.5 382.4 - 928.6 mg/dL 10/26/2024 3:36 PM EDT [facility] IgG Subclass 2 251.2 241.8 - 700.3 mg/dL 10/26/2024 3:36 PM EDT [facility] IgG Subclass 3 50.4 21.8 - 176.1 mg/dL 10/26/2024 3:36 PM EDT [facility] IgG Subclass 4 64.4 3.9 - 86.4 mg/dL 10/26/2024 3:36 PM EDT [facility] Blood BLOOD SPECIMEN / Unknown Venipuncture / Unknown 10/23/2024 1:18 PM EDT 10/23/2024 1:19 PM EDT Ar Suarez MD LABORATORY Final Resu lt [facility] [address] [place] [address], * LIPASE (10/23/2024 1:18 PM EDT) Lipase 55 16 - 61 U/L 10/23/2024 2:05 PM EDT [facility] Blood BLOOD SPECIMEN / Unknown Venipuncture / Unknown 10/23/2024 1:18 PM EDT 10/23/2024 1:19 PM EDT Ar Suarez MD LABORATORY Final Resu lt Performing Organization Address City/[facility]/ZIP Co de Phone Number [facility] [address] [place] [address], [place] * IMMUNOGLOBULIN G (10/23/2024 1:18 PM EDT) IgG 1,100 700 - 1,600 mg/dL 10/23/2024 7:51 PM EDT [facility] Blood BLOOD SPECIMEN / Unknown Venipuncture / Unknown 10/23/2024 1:18 PM EDT 10/23/2024 1:19 PM EDT Ar Suarez MD LABORATORY Final Resu lt Performing Organization Address [facility]/ZIP Co de Phone Number [facility] [address] [address], [place] * AMYLASE (10/23/2024 1:18 PM EDT) Amylase 70 30 - 104 U/L 10/23/2024 2:05 PM EDT [facility] Blood BLOOD SPECIMEN / Unknown Venipuncture / Unknown 10/23/2024 1:18 PM EDT 10/23/2024 1:19 PM EDT Ar Suarez MD LABORATORY Final Resu lt Performing Organization Address City/[facility]/ZIP Co de Phone Number [facility] [address] [place] [address], [place] * (ABNORMAL) ALKALINE PHOSPHATASE ISOENZYMES (P) (10/15/2024 10:25 AM EDT) Alk Phos Bone % 18.1 10.7 - 68.3 % 10/16/2024 9:58 PM EDT [facility] Bone Fraction 22.6 12.9 - 52.6 U/L 10/16/2024 9:58 PM EDT [facility] Alk Phos Liver % 81.9 26.0 - 86.2 % 10/16/2024 9:58 PM EDT [facility] Liver Fraction 102.4(H) 16.0 - 69.3 U/L 10/16/2024 9:58 PM EDT [facility] Alk Phos Intestine % 0.0 0.0 - 24.2 % 10/16/2024 9:58 PM EDT [facility] Intestine Fraction 0.0 0.0 - 16.3 U/L 10/16/2024 9:58 PM EDT [facility] Blood BLOOD SPECIMEN / Unknown Venipuncture / Unknown 10/15/2024 10:25 AM EDT 10/15/2024 10:26 AM EDT Xiomara Santoyo APRN.CNP LABORATORY Final Re sult Performing Organization Address City/[facility]/ZIP Co de Phone Number [facility] [address] [place] [address], [place] * (ABNORMAL) SEDIMENTATION RATE, WESTERGREN (10/15/2024 10:25 AM EDT) Sed Rate, Westergren 34(H) 0 - 15 mm/hr 10/15/2024 2:45 PM EDT [facility] Blood BLOOD SPECIMEN / Unknown Venipuncture / Unknown 10/15/2024 10:25 AM EDT 10/15/2024 10:26 AM EDT Ar Suarez MD LABORATORY Final Resu lt [facility] [address] [place] [address], [place] * (ABNORMAL) ALKALINE PHOSPHATASE (10/15/2024 10:25 AM EDT) [facility] Alkaline Phosphatase 125(H) 38 - 113 U/L 10/15/2024 7:51 PM EDT [facility] Blood BLOOD SPECIMEN / Unknown Venipuncture / Unknown 10/15/2024 10:25 AM EDT 10/15/2024 10:26 AM EDT us Xiomara Santoyo ASSEMBLER [employer].HVAC SERVICE MANAGER LABORATORY Final Re sult Performing Organization Address City/[facility]/ZIP Co de Phone Number [facility] [address] [place] [address], [place] * (ABNORMAL) HIGH SENSITIVITY C-REACTIVE PROTEIN (10/15/2024 10:25 AM EDT) [facility] UltraSens C-Reactive Protein 13.2(H) <3.1 mg/L 10/15/2024 7:51 PM EDT [facility] Comment: hsCRP < 1.0 mg/L, relative risk is low hsCRP 1.0-3.0 mg/L, relative risk is average hsCRP > 3.0 mg/L, relative risk is high Reference: Owens TA, Wilma GA, Octavio RW, et al. Markers of Inflammation and Cardiovascular Disease. Application to Clinical and Public Health Practice. A Statement for Healthcare Professionals from the Centers for Disease Control and Prevention and the [place] [employer]. Circulation 2003;107:499-511. Blood BLOOD SPECIMEN / Unknown Venipuncture / Unknown 10/15/2024 10:25 AM EDT 10/15/2024 10:26 AM EDT us Ar Suarez MD LABORATORY Final Resu lt Performing Organization Address [facility]/ZIP Co de Phone Number [facility] [address] [place] [address], [place] * (ABNORMAL) PROTEIN / CREATININE RATIO (10/15/2024 10:09 AM EDT) Pathologist [facility] Protein, Urine Random <4 0 - 20 mg/dL 10/15/2024 10:10 PM EDT [facility] Creatinine, Ur Random (UCRR) 12.6(L) 20.0 - 300.0 mg/dL 10/15/2024 10:10 PM EDT [facility] Protein/Creat Ratio <0.32(H) <0.15 mg/mg 10/15/2024 10:10 PM EDT [facility] Comment: Adult Proteinuria Categories: <0.15 mg/mg is considered normal to mildly increased 0.15 - 0.50 mg/mg is considered moderately increased >0.50 mg/mg is considered severely increased KDIGO. (2013). KDIGO 2012 Clinical Practice Guideline for the Evaluation and Management of Chronic Kidney Disease. Official Journal of the International Society of Nephrology, 3(1), 1-150. Urine URINE SPECIMEN / Unknown Non Blood / Unknown 10/15/2024 10:09 AM EDT 10/15/2024 11:02 AM EDT us Ar Suarez MD LABORATORY Final Resu lt [facility] [address] [place] [address], * UA DIP, URINE (POC) (10/15/2024 9:38 AM EDT) GLUCOSE UA (POCT) Negative Negative mg/dL [facility] BILIRUBIN UA (POCT) Negative Negative [facility] KETONE UA (POCT) Negative Negative mg/dL [facility] SPECIFIC GRAVITY UA (POCT) 1.015 1.005 - 1.030 [facility] HEMOGLOBIN/BLOOD UA (POCT) Negative Negative [facility] PH UA (POCT) 7.0 4.5 - 8.0 [facility] PROTEIN UA (POCT) Negative Negative mg/dL [facility] UROBILINOGEN UA (POCT) 0.2 Normal E.U./dL [facility] NITRITE UA (POCT) Negative Negative [facility] LEUKOCYTES UA (POCT) Negative Negative [facility] COLOR UA (POCT) Light yellow C [facility] CLARITY UA (POCT) Clear [facility] 10/15/2024 9:38 AM EDT Narrative [facility] - 10/15/2024 9:38 AM EDT Location:[facility], [address] [place] [address], [address] us Ar Suarez MD POC TESTING Final Resu lt Performing Organization Address City/[facility]/ZIP Co de Phone Number [facility] [address] * (ABNORMAL) GGT (10/14/2024 3:53 PM EDT) GGT 136(H) 10 - 70 U/L 10/15/2024 3:16 AM EDT [facility] Blood BLOOD SPECIMEN / Unknown Venipuncture / Unknown 10/14/2024 3:53 PM EDT 10/14/2024 3:53 PM EDT us Xiomara Santoyo APRN.HVAC SERVICE MANAGER LABORATORY Final Re sult Performing Organization Address City/[facility]/ZIP Co de Phone Number [facility] [address] [place] [address] [address] [place] [address], [place] * PROTEIN, BODY FLUID (10/14/2024 1:53 PM EDT) Protein, Body Fluid 2.5 See Comment g/dL 10/14/2024 4:24 PM EDT [facility] Comment: Serous fluids: Effusions are the [...] document C49A. RAJEEV Bui: Clinical Laboratory Standards [place]: 2007. Fluid, Thoracentesis PLEURAL FLUID / Unknown 10/14/2024 1:53 PM EDT 10/14/2024 2:25 PM EDT us Roseann Rosario MD LABORATORY Final Result Performing Organization Address City/[facility]/ZIP Co de Phone Number [facility] [address] [facility] [address] [address], [place] * LACTATE DEHYDROGENASE, BODY FLUID (10/14/2024 1:53 PM EDT) LD,Body Fluid 110 See Comment U/L 10/14/2024 4:24 PM EDT [facility] Comment: Pleural fluids: Pleural fluid lactate [...] document C49A. Hao, [place]: Clinical Laboratory Standards [place]: 2007. Reference: 2. Rafael STARK, Fei Doyle. [...] 533. Fluid, Thoracentesis PLEURAL FLUID / Unknown 10/14/2024 1:53 PM EDT 10/14/2024 2:25 PM EDT us Roseann Rosario MD LABORATORY Final Result Performing Organization Address [facility]/ZIP Co de Phone Number [facility] [address] [address], [place] * US CHEST (POC) H23 USE ONLY (10/14/2024 1:15 PM EDT) Anatomical Region Laterality Modality Other 10/14/2024 1:15 PM EDT us Triston Riggs MD IMAGES Final Result * XR CHEST 2V FRONTAL/LAT (10/13/2024 1:10 [...] any questions regarding this interpretation, please call [phone]. If you are unable to reach us at the number above, please feel free to contact [facility] at [phone]. Narrative 10/13/2024 3:26 PM EDT * * [...] and soft tissues: Unremarkable. Procedure Note Provider, [facility] [place] - 10/13/2024 * * *Final Report* * [...] any questions regarding this interpretation, please call [phone]. If you are unable to reach us at the number above, please feel free to contact [facility] at [phone]. us Louise Douglas MD RAD-PAMA Final Result * PT ED PATIENT INFORMATION (10/08/2024) 10/08/2024 Narrative KATHY - 11/23/2024 Provider MALACHI your patient BRYAN HARRIS has not started their Kathy program, time has . Kathy program: PATIENT SAFETY INSTRUCTIONS FOR HEALTHCARE SETTINGS us Xiomara Santoyo ASSEMBLER [employer].HVAC SERVICE MANAGER KATHY Final Re sult KATHY * US CHEST (POC) H23 USE ONLY (10/02/2024 12:23 PM EDT) Anatomical Region Laterality Modality Other 10/02/2024 12:2 3 PM EDT us Merlyn Zavala MD IMAGES Final Resu lt * SURGICAL PATHOLOGY (09/25/2024 11:32 AM EDT) Case Report Surgical Pathology Report Case: [id number] Authorizing Provider: Shay Dennis MD Collected: 09/25/2024 11:32 AM Ordering Location: Gastroenterology Received: 09/25/2024 04:32 PM Pathologist: Simba Frias MD, PhD Specimen: Stomach, Biopsy, R/O: H. Pylori 10/01/2024 5:25 PM EDT [facility] FINAL DIAGNOSIS A. Stomach, biopsy: - Chronic focally active gastritis and reactive gastropathy in antral and oxyntic mucosa. - Negative for intestinal metaplasia or dysplasia. - H. pylori immunostain will be reported as an addendum. 10/01/2024 5:25 PM EDT [facility] at 1344 EDT Gross Description A. Stomach, Biopsy Received in formalin are multiple pieces of de la garza, soft tissue aggregating to 1.9 x 0.3 x 0.2 cm. Totally submitted in one cassette. Gross examination performed at [facility], [address] [place] [address] September 25, 2024 6:03 PM 10/01/2024 5:25 PM EDT [facility] Performing Lab Diagnostic interpretation performed at: [facility], [address] [place] [address], [place] [address] CLIA# [id number] Gluer Machine Operator: Ramos Strickland MD 10/01/2024 5:25 PM EDT [facility] Addendum Addendum is issued t o reflect the result of immunohistochemical stain: - Immunostain for H. pylori is negative in part A. 10/01/2024 5:25 PM EDT [facility] Addendum electronically signed by Simba Frias MD, PhD on 10/01/2024 at 1725 EDT Disclaimer Laboratory Developed Test (LDT) Disclaimer: Performance characteristics of immunohistochemical, immunofluorescent, and chromogenic in-situ hybridization tests have been determined by the performing laboratory within [facility]'s Nick Jonn[facility] Pathology and Laboratory Medicine Department ([facility], [facility], [facility], [facility], [facility], [facility], or [facility]) in a manner consistent with CLIA requirements. One or more of these tests may not have been cleared or approved by the FDA. RT-PLM is regulated under [employer] as qualified to perform high-complexity testing. These tests are used for clinical purposes. These should not be regarded as investigational or for research. Positive and negative controls stain appropriately. 10/01/2024 5:25 PM EDT [facility] Tissue BIOPSY OF STOMACH / Unknown 09/25/2024 11:32 AM EDT 09/25/2024 4:32 PM EDT us Shay Dennis MD SURGICAL PATHOLOGY Edited Resul t - Final [facility] [address] [place] [address], * EGD DIAGNOSTIC (09/25/2024 11:14 AM EDT) Anatomical Region Laterality Modality Other 09/25/2024 11:1 4 AM EDT Narrative 09/25/2024 11:52 AM EDT Q3 Patient Name: Bryan Harris Procedure Date: 09/25/2024 11:14 AM Date of : 1950 Admit Type: Outpatient Age: 74 Gender: Male Note Status: Finalized Attending MD: Shay Dennis , , [id number] Procedure: Upper GI endoscopy Indications: Dysphagia Providers: Shay Dennis Patient Profile: This is a 74 year old male. Refer to note in patient chart for documentation of history and physical. Referring Physician: Sue Terrell MD (Referring MD) Medicines: Monitored Anesthesia Care Complications: No immediate complications. Requesting Provider: Procedure: Pre-Anesthesia Assessment: - Prior to the procedure, a History and Physical was performed, and patient medications and allergies were reviewed. The patient is competent. The risks and benefits of the procedure and the sedation options and risks were discussed with the patient. All questions were answered and informed consent was obtained. Patient identification and proposed procedure were verified by the physician, the nurse and the exceptional needs teacher in the pre-procedure area in the endoscopy suite. Mental Status Examination: alert and oriented. Airway Examination: normal oropharyngeal airway and neck mobility. Respiratory Examination: clear to auscultation. CV Examination: normal. Prophylactic Antibiotics: The patient does not require prophylactic antibiotics. Prior Anticoagulants: The patient has taken no anticoagulant or antiplatelet agents except for aspirin. After reviewing the risks and benefits, the [...] through the mouth, and advanced to the second part of duodenum. The upper GI endoscopy was accomplished without difficulty. The patient tolerated the procedure well. Moderate Sedation: MAC anesthesia was administered by the anesthesia team. Findings: The hypopharynx was normal. Abnormal motility was noted in the middle third of the esophagus and in the lower third of the esophagus. The cricopharyngeus was normal. There is eccentric, non propagating contractions of the esophageal body. The distal esophagus/lower esophageal sphincter is open. A hiatal hernia was found. The proximal extent of the gastric folds (end of tubular esophagus) was 39 cm from the incisors. The hiatal narrowing was 40 cm from the incisors. Hernia size was 2 cm in axial length by 2 cm in width. The hernia appeared to be small in volume. Multiple 3 to 8 mm semi-pedunculated fundic gland polyps with no bleeding and stigmata of recent bleeding were found in the gastric fundus and in the gastric body. Biopsies were taken with a cold forceps for histology and to rule out H pylori and metaplasia. No gross lesions were noted in the duodenal bulb, in the first portion of the duodenum and in the second portion of the duodenum. The esophagogastric junction was visualized endoscopically (prior to anatomic intervention). Features include a hiatal axial length of 0 cm, a hiatal diameter of 2-3 cm and an absent flap valve with thinning valve lip. These components were classified as AFS Hiatal Grade 3 (moderate disruption) per the AFS Endoscopic Classification of Esophagogastric Junction Integrity. Impression: - Normal hypopharynx. - Abnormal esophageal motility. - Hiatal hernia 2 cm in length. - Multiple fundic gland polyps. Biopsied. - No gross lesions in the duodenal bulb, in the first portion of the duodenum and in the second portion of the duodenum. - Pre-intervention esophagogastric junction classified as AFS Hiatal Grade 3 (moderate disruption). Estimated Blood Loss: Estimated blood loss was minimal. Recommendation: - Written discharge instructions were provided to the patient. - The signs and symptoms of potential delayed complications were discussed with the patient. - Patient has a contact number available for emergencies. - Return to normal activities tomorrow. - Resume previous diet. - Resume aspirin at prior dose tomorrow. Refer to managing physician for further adjustment of therapy. - Await pathology results. - Use a proton pump inhibitor PO. - Consider routine esophageal manometry. - Patient has a contact number available for emergencies. The signs and symptoms of potential delayed complications were discussed with the patient. Return to normal activities tomorrow. Written discharge instructions were provided to the patient. Procedure Code(s): --- Professional --- 29242 Diagnosis Code(s): --- Professional --- K22.4 K44.9 K31.7 R13.10 CPT copyright 2020 [employer]. All rights reserved. Attending Participation: I personally performed the entire procedure. Scope In: 11:28:01 AM Scope Out: 11:38:[address] Shay Dennis, 09/25/2024 11:50:45 AM This report has been signed electronically by Shay Dennis Number of Addenda: 0 Note Initiated On: 09/25/2024 11:14 AM Sue Terrell MD DIGESTIVE DISEASE Final Result * US CHEST (POC) H23 USE ONLY (09/08/2024 11:00 AM EDT) Anatomical Region Laterality Modality Other 09/08/2024 11:0 0 AM EDT us Roseann Rosario MD IMAGES Final Result * US CHEST (POC) H23 USE ONLY (09/04/2024 11:01 AM EDT) Anatomical Region Laterality Modality Other 09/04/2024 11:0 1 AM EDT us James Salinas MD IMAGES Final Result * THYROID STIMULATING HORMONE (08/28/2024 11:52 AM EDT) Only the most recent of2 resultswithin the time period is included. TSH 2.030 0.270 - 4.200 mIU/L 08/28/2024 5:11 PM EDT [facility] Blood BLOOD SPECIMEN / Unknown Venipuncture / Unknown 08/28/2024 11:52 AM EDT 08/28/2024 11:52 AM EDT us Jose Antonio Meyers MD LABORATORY Final Resul t [facility] [place] [address], [place] * PT ED DIGESTIVE DISEASE (08/26/2024) 08/26/2024 Narrative KATHY - 10/11/2024 Provider REBEKA your patient BRYAN HARRIS has not started their Kathy program, time has . Kathy program: UPPER GI ENDOSCOPY (EGD) us Shay Dennis MD KATHY Final Result KATHY * CHOLESTEROL BFL (05/18/2024 12:52 PM EST) Cholesterol, Body Fluid 30 See Comment mg/dL 05/19/2024 3:06 AM EST [facility] Comment: SYNOVIAL FLUIDS: Synovial fluid cholesterol measurement may [...] document C49-A. RAJEEV Bui: Clinical Laboratory Standards [place]; 2007. Body Fluid Type (Chol) Pleural Cavity, Right 05/19/2024 3:06 AM EST [facility] Sterile Fluid/Body Fluid PLEURAL FLUID / Unknown Non Blood / Unknown 05/18/2024 12:52 PM EST 05/18/2024 11:34 PM EST Louise Douglas MD LABORATORY Final Result Performing Organization Address City/State/[facility] Co de Phone Number [facility] [address] [place] [address], * COLONOSCOPY (THERAPEUTIC) (04/28/2024 11:16 AM EST) Anatomical Region Laterality Modality Other 04/28/2024 11:1 6 AM EST Narrative 04/28/2024 11:59 AM EST [facility] Gastrointestinal Endoscopy Patient Name: Bryan Harris Procedure Date: 04/28/2024 11:16 AM Date of : 1950 Admit Type: Outpatient Age: 74 Room: [place] [address] Gender: Male Note Status: Finalized Attending MD: Vic Ponce MD, [id number] Procedure: Colonoscopy Indications: Chronic diarrhea Comorbidities Patient with chronic right pleural effusion unknown etiology/origin with N,V, diarrhea and weight loss. Providers: Vic Ponce MD, Nenita Almonte, EVAN, Abbie Ivey, RN, Adri Bradley, EVAN (Assisting Nurse) Patient Profile: This is a 74 year old male. Refer to note in patient chart for documentation of history and physical. Last Colonoscopy: 5 years ago. Referring Physician: Sue Terrell MD (Referring MD) Medicines: Monitored Anesthesia Care [...] physician, the nurse, the anesthesiologist and the exceptional needs teacher in the procedure room at 11:29 AM. [...] prior dose. Procedure Code(s): --- Professional --- 12880, Colonoscopy, flexible; with biopsy, single or multiple Diagnosis Code(s): --- Professional --- K52.9, Noninfective gastroenteritis and colitis, unspecified CPT copyright 2020 [employer]. All rights reserved. The codes documented in this report are preliminary and upon mixer and blender review may be revised to meet current compliance requirements. Attending Participation: I personally performed the entire procedure. Scope In: 11:48:20 AM Scope Out: 11:55:18 AM MD Vic Hammond MD 04/28/2024 11:59:12 AM This report has been signed electronically by Vic Ponce MD Number of Addenda: 0 Note Initiated On: 04/28/2024 11:16 AM Estimated Blood Loss: Estimated blood loss: none. 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 Advance Directive(s) 11/12/2023 2:37 PM * Full Code (Latest Code Status on File) Date Activated Date Inactivated Comments 12/20/2023 10:18 PM 12/26/2023 9:02 PM Question Answer Comments Full Code Order Discussed With: Patient Care Teams Ultrasound Technol Relationship Specialty [place] [address] [facility] [place] [address] PCP - General Family Medicine 12/29/23 Jere Sales MD [address] [place] [address] Referring Gastroenterology 12/05/20 Calin Gotti DO [address] [place] [address] Internal Medicine 10/16/23
--- OUTSIDE RECORDS SUMMARY | 2024-11-24 16:49 | XMS_ITS | Encounter Summary ---
Author Organization [facility] Address [address] [place] [address] Care Team Providers Care Lpn Per Diem Name Role Phone Jere Sales MD Unavailable [phone] Calin Gotti DO Unavailable [phone] Jose Antonio Meyers MD Primary Care Provider [phone] Source Comments In the event this information is protected by the Federal Confidentiality of Alcohol and Drug AbusePatient Records regulations: The Federal rules restrict any use of the information to criminally investigate or prosecute any alcohol or drug abuse patient.[facility] Encounter Details Date Type Department Care Team (Late st Contact Info) Description 10/15/2024 Results Follow-Up Gastroenterology [address] [address] Xiomara Santoyo APRN.[place] [id number] [place] [address] Social History Tobacco Use Types [...] risk 5 12/11/2023 Data from: https://www.neighborhoodatlas.medicine.[facility].edu/. Last address used for calculation 2230 [...] EDT [place] [address] [place] [address] [place] [address] [place] [address] Follow-up 12/16/2024 12:30 PM EDT Office Visit Vascular Surgery [address] [facility] [address] Extremity cyanosis [R23.0] 12/16/2024 2:30 PM EDT Office Visit Vascular Surgery [address] [facility] [place] [address] Extremity cyanosis [R23.0] 12/16/2024 3:30 PM EDT Office Visit Vascular Surgery [address] [facility] [place] [address] Extremity cyanosis [R23.0] 12/22/2024 6:00 PM EDT [facility] Gastroenterology [address] [address] Araseli Wall APRN.FUNERAL PLANNER [address] [place] [address] Elevated alkaline phosphatase leve 05/21/2025 2:00 PM EST Office Visit Cardiology [address] [place] [address] [place] [address] [facility] [place] [address] 6 month follow up documented as of this encounter Goals Goal Patient Goal Type Associated Problems Recent Progress Patient-Stated? Author Blood Pressure < 130/80 Blood Pressure 120/74( 025 10:15 PM EDT) No Sung Hartley MD documented as of this encounter Visit Diagnoses Not on filedocumented in this encounter Care Teams Lpn Per Diem Relationship Specialty Start [place] [address] [facility] [place] [address] PCP - General Family Medicine 12/29/23 Jere Sales MD [address] [address] Referring Gastroenterology 12/05/20 Calin Gotti DO [address] [place] [address] Internal Medicine 10/16/23 documented as of this encounter
--- OUTSIDE RECORDS SUMMARY | 2024-11-24 16:50 | XMS_ITS | Encounter Summary ---
Author Organization [facility] Address [address] [place] [address] Care Team Providers Care Access Nurse Name Role Phone Jere Sales MD Unavailable [phone] Calin Gotti DO Unavailable [phone] Jose Antonio Meyers MD Primary Care Provider [phone] Source Comments In the event this information is protected by the Federal Confidentiality of Alcohol and Drug AbusePatient Records regulations: The Federal rules restrict any use of the information to criminally investigate or prosecute any alcohol or drug abuse patient.[facility] Encounter Details Date Type Department Care Team (Late st Contact Info) Description 04/24/2024 Get Medical Advice Rheumatology [address] [place] [id number] Jailyn Mahoney MD [address] [place] [address] Willie Harris Social History Tobacco Use Types Packs/Day Years Used Date Smoking Tobacco: Never Smokeless Tobacco: Never Alcohol Use Standard Drinks/Week Comments Yes 0 (1 standard drink = 0.6 oz pure alcohol) socially, no drink since 06/2023 [facility] Utilities Answer Date Recorded In the [...] is lower risk 5 12/11/2023 Data from: https://www.neighborhoodatlas.medicine.[facility].edu/. Last address used for calculation [address] [...] EDT [place] [address] [place] [address] [place] [address] [place] [address] Follow-up 12/16/2024 12:30 PM EDT Office Visit Vascular Surgery [address] [facility] [place] [address] Extremity cyanosis [R23.0] 12/16/2024 2:30 PM EDT Office Visit Vascular Surgery [address] [place] [address] Extremity cyanosis [R23.0] 12/16/2024 3:30 PM EDT Office Visit Vascular Surgery [address] [facility] [place] [address] Extremity cyanosis [R23.0] 12/22/2024 6:00 PM EDT [facility] Gastroenterology [address] [address] Araseli Wall APRN.ARCHITECTURE CONSULTANT [address] [place] [address] Elevated alkaline phosphatase leve 05/21/2025 2:00 PM EST Office Visit Cardiology [address] [place] [address] [place] [address] [facility] [place] [address] 6 month follow up documented as of this encounter Goals Goal Patient Goal Type Associated Problems Recent Progress Patient-Stated? Author Blood Pressure < 130/80 Blood Pressure 120/74( 025 10:15 PM EDT) No Sung Hartley MD documented as of this encounter Visit Diagnoses Diagnosis Hypokalemia- Primary Hypopotassemia documented in this encounter Care Teams Access Nurse Relationship Specialty Start [place] [address] [facility] [address] PCP - General Family Medicine 12/29/23 Jere Sales MD [address] [address] Referring Gastroenterology 12/05/20 Calin Gotti DO [address] [place] [address] Internal Medicine 10/16/23 documented as of this encounter
--- OUTSIDE RECORDS SUMMARY | 2024-11-24 16:50 | XMS_ITS | Encounter Summary ---
Author Organization [facility] Address [address] [place] [address] Care Team Providers Care Animal Trainer Name Role Phone Jere Sales MD Unavailable [phone] Cailn Gotti DO Unavailable [phone] Jose Antonio Meyers MD Primary Care Provider [phone] Source Comments In the event this information is protected by the Federal Confidentiality of Alcohol and Drug AbusePatient Records regulations: The Federal rules restrict any use of the information to criminally investigate or prosecute any alcohol or drug abuse patient.[facility] Encounter Details Date Type Department Care Team (Late st Contact Info) Description 11/13/2024 Get Medical Advice Gastroenterology [address] [address] Provider, Migel Harris. 1950 Social History Tobacco Use Types Packs/Day Years Used Date Smoking Tobacco: Never Smokeless Tobacco: Never Alcohol Use Standard Drinks/Week Comments Yes 0 (1 standard drink = 0.6 oz pure alcohol) socially, no drink since 06/2023 [facility] Utilities Answer Date Recorded In [...] risk 5 12/11/2023 Data from: https://www.neighborhoodatlas.medicine.[facility].edu/. Last address used for calculation [address] [...] EDT [place] [address] [place] [address] [place] [address] [place] [address] Follow-up 12/16/2024 12:30 PM EDT Office Visit Vascular Surgery 57[address] [facility] [place] [address] Extremity cyanosis [R23.0] 12/16/2024 2:30 PM EDT Office Visit Vascular Surgery [address] [facility] [place] [address] Extremity cyanosis [R23.0] 12/16/2024 3:30 PM EDT Office Visit Vascular Surgery [address] [facility] [place] [address] Extremity cyanosis [R23.0] 12/22/2024 6:00 PM EDT [facility] Gastroenterology [address] [address] Araseli Wall APRN.PALLIATIVE NURSE [address] [facility] [place] [address] Elevated alkaline phosphatase leve 05/21/2025 2:00 PM EST Office Visit Cardiology [address] [place] [address] [place] [address] [facility] [place] [address] 6 month follow up documented as of this encounter Goals Goal Patient Goal Type Associated Problems Recent Progress Patient-Stated? Author Blood Pressure < 130/80 Blood Pressure 120/74( 025 10:15 PM EDT) No Sung Hartley MD documented as of this encounter Visit Diagnoses Not on filedocumented in this encounter Care Teams Animal Trainer Relationship Specialty Start [place] [address] [facility] [place] [address] PCP - General Family Medicine 12/29/23 Jere Sales MD [address] [address] Referring Gastroenterology 12/05/20 Calin Gotti DO [address] [place] [address] Internal Medicine 10/16/23 documented as of this encounter
--- OUTSIDE RECORDS SUMMARY | 2024-11-24 16:50 | XMS_ITS | Encounter Summary ---
Author Organization [facility] Address [address] [place] [address] Care Team Providers Care Insurance Sales Specialist Name Role Phone Jere Sales MD Unavailable [phone] Calin Gotti DO Unavailable [phone] Jose Antonio Meyers MD Primary Care Provider [phone] Source Comments In the event this information is protected by the Federal Confidentiality of Alcohol and Drug AbusePatient Records regulations: The Federal rules restrict any use of the information to criminally investigate or prosecute any alcohol or drug abuse patient.[facility] Encounter Details Date Type Department Care Team (Late st Contact Info) Description 11/17/2024 Patient Msg [facility] [address] [place], [place] [id number] Provider, [facility] Follow Up Appointment Social History Tobacco Use Types Packs/Day Years Used Date Smoking Tobacco: Never Smokeless Tobacco: Never Alcohol Use Standard Drinks/Week Comments Yes 0 (1 standard drink = 0.6 oz pure alcohol) socially, no drink since 06/2023 [facility] Utilities Answer Date Recorded In the [...] is lower risk 5 12/11/2023 Data from: https://www.neighborhoodatlas.medicine.[facility].edu/. Last address used for calculation [address] [...] EDT [place] [address] [place] [address] [place] [address] [place] [address] Follow-up 12/16/2024 12:30 PM EDT Office Visit Vascular Surgery [address] [place] [address] Extremity cyanosis [R23.0] 12/16/2024 2:30 PM EDT Office Visit [facility]ascular Surgery [address] [facility] [place] [address] Extremity cyanosis [R23.0] 12/16/2024 3:30 PM EDT Office Visit Vascular Surgery [address] [place] [address] Extremity cyanosis [R23.0] 12/22/2024 6:00 PM EDT [facility] Gastroenterology [address] [address] Araseli Wall APRN.CUT OFF SAW GRADER [address] [place] [address] Elevated alkaline phosphatase leve 05/21/2025 2:00 PM EST Office Visit Cardiology [address] [place] [address] [place] [address] [facility] [place] [address] 6 month follow up documented as of this encounter Goals Goal Patient Goal Type Associated Problems Recent Progress Patient-Stated? Author Blood Pressure < 130/80 Blood Pressure 120/74( 025 10:15 PM EDT) No Sung Hartley MD documented as of this encounter Visit Diagnoses Not on filedocumented in this encounter Care Teams Insurance Sales Specialist Relationship Specialty Start [place] [address] [facility] [place] [address] PCP - General Family Medicine 12/29/23 Jere Sales MD [address] [address] Referring Gastroenterology 12/05/20 Calin Gotti DO [address] [place] [address] Internal Medicine 10/16/23 documented as of this encounter
--- OUTSIDE RECORDS SUMMARY | 2024-11-24 16:50 | XMS_ITS | Encounter Summary ---
Author Organization [facility] Address [address] [place] [address] Care Team Providers Care Mobile Tester Name Role Phone Jere Sales MD Unavailable [phone] Calin Gotti DO Unavailable [phone] Jose Antonio Meyers MD Primary Care Provider [phone] Source Comments In the event this information is protected by the Federal Confidentiality of Alcohol and Drug AbusePatient Records regulations: The Federal rules restrict any use of the information to criminally investigate or prosecute any alcohol or drug abuse patient.[facility] Encounter Details Date Type Department Care Team (Latest Contact Info) Description 11/12/2024 Travel Social History Tobacco Use Types Packs/Day Years Used Date Smoking Tobacco: Never Smokeless Tobacco: Never Alcohol Use Standard Drinks/Week Comments Yes 0 (1 standard drink = 0.6 oz pure alcohol) socially, no drink since 06/2023 [facility] Utilities Answer Date Recorded In the [...] risk 5 12/11/2023 Data from: https://www.neighborhoodatlas.medicine.[facility].edu/. Last address used for calculation 2230 [...] EDT [place] [address] [facility] [place] [address] [place] [address] [place] [address] Follow-up 12/16/2024 12:30 PM EDT Office Visit Vascular Surgery 5700 [place] [address] Extremity cyanosis [R23.0] 12/16/2024 2:30 PM EDT Office Visit Vascular Surgery [address] [place] [address] Extremity cyanosis [R23.0] 12/16/2024 3:30 PM EDT Office Visit Vascular Surgery [address] [place] [address] Extremity cyanosis [R23.0] 12/22/2024 6:00 PM EDT [facility] Gastroenterology [address] [address] Araseli Wall, YOGA INSTRUCTOR.SUPERVISOR SEWER MAINTENANCE [address] [facility] [place] [address] Elevated alkaline phosphatase leve 05/21/2025 2:00 PM EST Office Visit Cardiology [address] [place] [address] [place] [address] [facility] [place] [address] 6 month follow up documented as of this encounter Goals Goal Patient Goal Type Associated Problems Recent Progress Patient-Stated? Author Blood Pressure < 130/80 Blood Pressure 120/74( 025 10:15 PM EDT) No Sung Hartley MD documented as of this encounter Visit Diagnoses Not on filedocumented in this encounter Care Teams Mobile Tester Relationship Specialty Start [place] [address] [place], [place] [id number] PCP - General Family Medicine 12/29/23 Jere Sales MD [address] [address] Referring Gastroenterology 12/05/20 Calin Gotti DO [address] [place] [address] Internal Medicine 10/16/23 documented as of this encounter
--- OUTSIDE RECORDS SUMMARY | 2024-11-24 16:50 | XMS_ITS | Encounter Summary ---
Author Organization [facility] Address [address] [place] [address] Care Team Providers Care Refrigeration Installer Name Role Phone Jere Sales MD Unavailable [phone] Calin Gotti DO Unavailable [phone] Jose Antonio Meyers MD Primary Care Provider [phone] Source Comments In the event this information is protected by the Federal Confidentiality of Alcohol and Drug AbusePatient Records regulations: The Federal rules restrict any use of the information to criminally investigate or prosecute any alcohol or drug abuse patient.[facility] Encounter Details Date Type Department Care Team (Late st Contact Info) Description 10/31/2024 Results Follow-Up Gastroenterology [address] [address] Xiomara Santoyo APRN.[place] [address] [place] [address] Social History Tobacco Use Types Packs/Day Years Used Date Smoking Tobacco: Never Smokeless Tobacco: Never Alcohol Use Standard Drinks/Week Comments Yes 0 (1 standard drink = 0.6 oz pure alcohol) socially, no drink since 06/2023 [facility] Utilities Answer Date Recorded In the [...] is lower risk 5 12/11/2023 Data from: https://www.neighborhoodatlas.medicine.[facility].edu/. Last address used for calculation 2230 [...] EDT [place] [address] [place] [address] [place] [address] [place] [address] Follow-up 12/16/2024 12:30 PM EDT Office Visit Vascular Surgery 5700 [facility] [place] [address] Extremity cyanosis [R23.0] 12/16/2024 2:30 PM EDT Office Visit Vascular Surgery 5700 [place] [address] Extremity cyanosis [R23.0] 12/16/2024 3:30 PM EDT Office Visit Vascular Surgery 57[address] [place] [address] Extremity cyanosis [R23.0] 12/22/2024 6:[address] [facility] Gastroenterology [address] [address] Araseli Wall APRN.PRACTICE CONSULTANT [address] [place] [address] Elevated alkaline phosphatase leve 05/21/2025 2:00 PM EST Office Visit Cardiology [address] [place] [address] [place] [address] [place] [address] 6 month follow up documented as of this encounter Goals Goal Patient Goal Type Associated Problems Recent Progress Patient-Stated? Author Blood Pressure < 130/80 Blood Pressure 120/74( 025 10:15 PM EDT) No Sung Hartley MD documented as of this encounter Visit Diagnoses Not on filedocumented in this encounter Care Teams Refrigeration Installer Relationship Specialty Start [place] [address] [facility] [place] [address] PCP - General Family Medicine 12/29/23 Jere Sales MD [address] [address] Referring Gastroenterology 12/05/20 Calin Gotti DO [address] [place] [address] Internal Medicine 10/16/23 documented as of this encounter
--- OUTSIDE RECORDS SUMMARY | 2024-11-24 16:50 | XMS_ITS | Encounter Summary ---
Author Organization [facility] Address [address] [place] [address] Care Team Providers Care Liaison Officer Name Role Phone Jere Sales MD Unavailable [phone] Calin Gotti DO Unavailable [phone] Jose Antonio Meyers MD Primary Care Provider [phone] Source Comments In the event this information is protected by the Federal Confidentiality of Alcohol and Drug AbusePatient Records regulations: The Federal rules restrict any use of the information to criminally investigate or prosecute any alcohol or drug abuse patient.[facility] Reason for Visit * Reason Comments Patient Question Encounter Details Date Type Department Care Team (Late st Contact Info) Description 11/17/2024 Telephone Pulmonary Medicine [address] [id number] Amanda Brooks (Pss) Patient Question Social History Tobacco Use Types Packs/Day Years Used Date Smoking Tobacco: Never Smokeless Tobacco: Never Alcohol Use Standard Drinks/Week Comments Yes 0 (1 standard drink = 0.6 oz pure alcohol) socially, no drink since 06/2023 [facility] Utilities Answer Date Recorded In the past [...] risk 5 12/11/2023 Data from: https://www.neighborhoodatlas.medicine.[facility].edu/. Last address used for calculation 22[address] [...] * Telephone Encounter - Amanda Brooks - 11/17/2024 2:29 PM EDT Patient called. She stated patient has an upcoming appt w/ Dr. Riggs on . She mentioned patient gets drained daily. Recently another physician placed patient on a booster pill . Yesterday drain was 15 and today's drain was 10. Home health is asking if they should drain him tomorrow or skip a day and wait until patient comes into office to be drained with physician. She can be reached at [phone] She asked if a detailed voicemail can be left if somehow she misses the call documented in this encounter Plan of Treatment Upcoming Encounters Date Type Department Care Team (Late st Contact Info) Description 12/15/2024 11:15 AM EDT [place] [address] [place] [address] [place] [address] [facility] [place] [address] Follow-up 12/16/2024 12:30 PM EDT Office Visit Vascular Surgery [address] [place] [address] Extremity cyanosis [R23.0] 12/16/2024 2:30 PM EDT Office Visit Vascular Surgery [address] [place] [address] Extremity cyanosis [R23.0] 12/16/2024 3:30 PM EDT Office Visit Vascular Surgery [address] [place] [address] Extremity cyanosis [R23.0] 12/22/2024 6:00 PM EDT [facility] Gastroenterology [address] [place] [address] Araseli Wall APRN.BACKFILLER [address] [place] [address] Elevated alkaline phosphatase leve 05/21/2025 2:00 PM EST Office Visit Cardiology [address] [place] [address] [place] [address] [facility] [place] [address] 6 month follow up documented as of this encounter Goals Goal Patient Goal Type Associated Problems Recent Progress Patient-Stated? Author Blood Pressure < 130/80 Blood Pressure 120/74( 025 10:15 PM EDT) No Sung Hartley MD documented as of this encounter Visit Diagnoses Not on filedocumented in this encounter Care Teams Liaison Officer Relationship Specialty Start [place] [address] [place] [address] PCP - General Family Medicine 12/29/23 Jere Sales MD [address] [address] Referring Gastroenterology 12/05/20 Calin Gotti DO [facility] [place] [place] [address] Internal Medicine 10/16/23 documented as of this encounter
--- OUTSIDE RECORDS SUMMARY | 2024-11-24 16:50 | XMS_ITS | Encounter Summary ---
Author Organization [facility] Address [address] [place] [address] Care Team Providers Care Patient Access Manager Name Role Phone Jere Sales MD Unavailable [phone] Calin Gotti DO Unavailable [phone] Jose Antonio Meyers MD Primary Care Provider [phone] Source Comments In the event this information is protected by the Federal Confidentiality of Alcohol and Drug AbusePatient Records regulations: The Federal rules restrict any use of the information to criminally investigate or prosecute any alcohol or drug abuse patient.[facility] Encounter Details Date Type Department Care Team (Late st Contact Info) Description 11/03/2024 Results Follow-Up Gastroenterology [address] [address] Xiomara Santoyo APRN.[place] [address] [place] [address] Social History Tobacco Use Types [...] risk 5 12/11/2023 Data from: https://www.neighborhoodatlas.medicine.[facility].edu/. Last address used for calculation 2230 12/11/2023 [...] encounter Miscellaneous Notes * Telephone Encounter - Xiomara Santoyo APRN.CNP - 11/11/2024 5:20 PM EDT Called pt to discuss symptoms. Advised that given reported rapid weight gain over the last 4-5 days, he should be evaluated in the ED to determine if inpatient management is appropriate for worseningsymptoms. Pt verbalized understanding. Xiomara Santoyo APRN.CURT documented in this encounter Plan of Treatment Upcoming Encounters Date Type Department Care Team (Late st Contact Info) Description 12/15/2024 11:15 AM EDT [place] [address] [place] [address] [place] [address] [place] [address] Follow-up 12/16/2024 12:30 PM EDT Office Visit Vascular Surgery [address] [place] [address] Extremity cyanosis [R23.0] 12/16/2024 2:30 PM EDT Office Visit Vascular Surgery [address] [place] [address] Extremity cyanosis [R23.0] 12/16/2024 3:30 PM EDT Office Visit Vascular Surgery [address] [place] [address] Extremity cyanosis [R23.0] 12/22/2024 6:00 PM EDT [facility] Gastroenterology [address] [address] Araseli Wall APRN.STERILE PROCESSING TECH 9500 [place] [address] Elevated alkaline phosphatase leve 05/21/2025 2:00 PM EST Office Visit Cardiology [address] [place] [address] [place] [address] [facility] [place] [address] 6 month follow up documented as of this encounter Goals Goal Patient Goal Type Associated Problems Recent Progress Patient-Stated? Author Blood Pressure < 130/80 Blood Pressure 120/74( 025 10:15 PM EDT) No Sung Hartley MD documented as of this encounter Visit Diagnoses Not on filedocumented in this encounter Care Teams Patient Access Manager Relationship Specialty Start [place] [address] [facility] [address] PCP - General Family Medicine 12/29/23 Jere Sales MD [address] [address] Referring Gastroenterology 12/05/20 Calin Gotti DO [address] [place] [address] Internal Medicine 10/16/23 documented as of this encounter
--- OUTSIDE RECORDS SUMMARY | 2024-11-24 16:50 | XMS_ITS | Encounter Summary ---
Author Organization [facility] Address [address] [place] [address] Care Team Providers Care Advisory Application Developer Name Role Phone Jere Sales MD Unavailable [phone] Calin Gotti DO Unavailable [phone] Jose Antonio Meyers MD Primary Care Provider [phone] Source Comments In the event this information is protected by the Federal Confidentiality of Alcohol and Drug AbusePatient Records regulations: The Federal rules restrict any use of the information to criminally investigate or prosecute any alcohol or drug abuse patient.[facility] Reason for Visit * Reason Comments Received Outside Medical Records Encounter Details Date Type Department Care Team (Late st Contact Info) Description 10/23/2024 Telephone Thoracic Clinic [address] [place] [phone] Ronaldo Ramos MD, PhD [address] [facility] [address] [place] [id number] Received Outside Medical Records Social History Tobacco Use Types Packs/Day Years Used Date Smoking Tobacco: Never Smokeless Tobacco: Never Alcohol Use Standard Drinks/Week Comments Yes 0 (1 standard drink = 0.6 oz pure alcohol) socially, no drink since 06/2023 [facility] Utilities Answer Date Recorded In the [...] place to sleep or slept in a correction (including now)? No 11/21/2023 Area Deprivation Index [...] * Telephone Encounter - Lora Wood - 11/17/2024 3:14 PM EDT Received missed visit notes from [facility] Records scanned in [employer] natalee Loya asst * Telephone Encounter - Lora Wood - 10/23/2024 10:20 AM EDT Received missed visit note from [facility] 10/14/24, record scanned in [employer] Lora Wood business administrator documented in this encounter Plan of Treatment Upcoming Encounters Date Type Department Care Team (Late st Contact Info) Description 12/15/2024 11:15 AM EDT [place] [address] [facility] [place] [address] [place] [address] [facility] [place] [address] Follow-up 12/16/2024 12:30 PM EDT Office Visit Vascular Surgery 57[address] [place] [address] Extremity cyanosis [R23.0] 12/16/2024 2:30 PM EDT Office Visit Vascular Surgery [address] [place] [address] Extremity cyanosis [R23.0] 12/16/2024 3:30 PM EDT Office Visit Vascular Surgery 57[address] [place] [address] Extremity cyanosis [R23.0] 12/22/2024 6:00 PM EDT [facility] Gastroenterology [address] [address] Araseli Wall, LETICIA.BACK TENDER CLOTH PRINTING [address] [place] [address] Elevated alkaline phosphatase leve 05/21/2025 2:00 PM EST Office Visit Cardiology [address] [place] [address] [place] [address] [facility] [place] [address] 6 month follow up documented as of this encounter Goals Goal Patient Goal Type Associated Problems Recent Progress Patient-Stated? Author Blood Pressure < 130/80 Blood Pressure 120/74( 025 10:15 PM EDT) No Sung Hartley MD documented as of this encounter Visit Diagnoses Not on filedocumented in this encounter Care Teams Advisory Application Developer Relationship Specialty Start [place] [address] [facility] [place] [address] PCP - General Family Medicine 12/29/23 Jere Sales MD [address] [address] Referring Gastroenterology 12/05/20 Calin Gotti DO [address] [place] [address] Internal Medicine 10/16/23 documented as of this encounter
--- OUTSIDE RECORDS SUMMARY | 2024-11-24 16:50 | XMS_ITS | Encounter Summary ---
Author Organization [facility] Address [address] [place] [address] Care Team Providers Care Typesetting Machine Tender Name Role Phone Jere Sales MD Unavailable [phone] Calin Gotti DO Unavailable [phone] Jose Antonio Meyers MD Primary Care Provider [phone] Source Comments In the event this information is protected by the Federal Confidentiality of Alcohol and Drug AbusePatient Records regulations: The Federal rules restrict any use of the information to criminally investigate or prosecute any alcohol or drug abuse patient.[facility] Encounter Details Date Type Department Care Team (Late st Contact Info) Description 11/12/2024 Get Medical Advice Gastroenterology [address] [address] Provider, Migel Harris 1950 Social History Tobacco Use Types [...] lower risk 5 12/11/2023 Data from: https://www.neighborhoodatlas.medicine.[facility].edu/. Last address used for calculation 2230 [...] EDT [place] [address] [place] [address] [place] [address] [place] [address] Follow-up 12/16/2024 12:30 PM EDT Office Visit Vascular Surgery 5700 [place] [address] Extremity cyanosis [R23.0] 12/16/2024 2:30 PM EDT Office Visit Vascular Surgery [address] [facility] [place] [address] Extremity cyanosis [R23.0] 12/16/2024 3:30 PM EDT Office Visit Vascular Surgery 5700 [place] [address] Extremity cyanosis [R23.0] 12/22/2024 6:00 PM EDT [facility] Gastroenterology [address] [address] Araseli Wall APRN.DEVELOPMENT DISABILITY SPECIALIST 95[address] [facility] [place] [address] Elevated alkaline phosphatase leve 05/21/2025 2:00 PM EST Office Visit Cardiology [address] [place] [address] [place] [address] [facility] [place] [address] 6 month follow up documented as of this encounter Goals Goal Patient Goal Type Associated Problems Recent Progress Patient-Stated? Author Blood Pressure < 130/80 Blood Pressure 120/74( 025 10:15 PM EDT) No Sung Hartley MD documented as of this encounter Visit Diagnoses Not on filedocumented in this encounter Care Teams Typesetting Machine Tender Relationship Specialty Start [place] [address] [facility] [place] [address] PCP - General Family Medicine 12/29/23 Jere Sales MD [address] [address] Referring Gastroenterology 12/05/20 Calin Gotti DO [address] [place] [address] Internal Medicine 10/16/23 documented as of this encounter
[2024-11-24 17:07] LABS: Basophils Absolute Auto 0.1 10^3/uL (0.0-0.1); Basophils Percent Auto 0.6 % (0.2-2.0); Hematocrit 39.2 % (42.0-54.0); Hemoglobin 13.2 g/dL (14.0-18.0); Immature Granulocytes Abs Auto 0.41 10^3/uL (0.00-0.03); Immature Granulocytes Pct Auto 3.9 % (0.0-0.5); Lymphocytes Absolute Auto 1.5 10^3/uL (1.2-3.8); Lymphocytes Percent Auto 13.7 % (20.5-60.0); Mean Corpuscular HGB Conc 33.7 g/dL (29.9-35.2); Mean Corpuscular Hemoglobin 32.5 pg (25.9-34.0); Mean Corpuscular Volume 96.6 fL (80.0-94.0); Mean Platelet Volume 10.2 fL (9.5-13.5); Monocytes Percent Auto 9.5 % (1.7-12.0); Neutrophils Absolute Auto 7.6 10^3/uL (1.4-6.5); Neutrophils Percent Auto 72.3 % (43.0-75.0); Platelet Count 246 10^3/uL (150-450); Red Blood Count 4.06 10^6/uL (4.70-6.10); Red Cell Distribution Width 15.8 % (11.0-15.0); White Blood Count 10.6 10^3/uL (4.0-11.0)
[2024-11-24 17:32] LABS: Alanine Aminotransferase 47 U/L (16-63); Albumin Globulin Ratio 0.7; Albumin Level 3.4 g/dL (3.4-5.0); Alkaline Phosphatase 125 U/L (46-116); Anion Gap 12.7; Aspartate Amino Transferase 33 U/L (15-37); BUN Creatinine Ratio 50.7; Bilirubin Total 0.7 mg/dL (0.2-1.0); Calcium 9.4 mg/dL (8.5-10.1); Carbon Dioxide 31.5 mmol/L (21.0-32.0); Chloride 98 mmol/L (98-107); Estimated GFR (African America 55 (>=60 mL/min/1.73m^2); Estimated GFR (Non-African Ame 45 (>=60 mL/min/1.73m^2); Globulin 4.6 g/dL; Glucose 104 mg/dL (74-106); Potassium 3.2 mmol/L (3.5-5.1); Sodium 139 mmol/L (136-145); Thyroid Stimulating Hormone 2.077 uIU/mL (0.358-3.740)
[2024-11-26 06:08] LABS: Vitamin B12 1283 pg/mL (232-1245)
== END 2024-11-24 16:42 | disposition home or self-care (01) ==
LOC: LAB 16:44
PROVIDERS: PCP Internal Medicine; Visit Provider Internal Medicine
DX: R18.8 Other ascites (principal); I10 Essential (primary) hypertension; N17.9 Acute kidney failure, unspecified; R53.83 Other fatigue; D64.9 Anemia, unspecified
CPT/HCPCS: 36415; 80053; 82607; 82728; 82746; 84443; 85025

== ENCOUNTER 2024-12-07 12:22 | Outpatient (OUT) | payer MEDICARE, SELFPAY ==
--- OUTSIDE RECORDS SUMMARY | 2024-01-15 05:00 | XMS_ITS ---
Author Organization The [facility] in [place] Address [address] [place] [address] Care Team Providers Care Master Hearth Technician Name Role Phone Kelechi Dawit MATA Primary Care Provider Calin Espino Unavailable [phone] Allergies Allergen (clinical drug ingredient) Drug/Non Drug [...] Encounter Location Date Provider Diagnosis Pulmonary Medicine [place] [address] [place] [address] 01/15/2024 Calin Gotti Chronic cough R05.3 ; [...] drained Saturday. He has seen rheumatology at [facility] and they have not been able to determine a cause. Cytology/patholog y have returned negative for malignancy. I am not of much assistance here at [facility] given our small size. Other thought would be infectious disease. Could also consider checking cytology yet again, but if this really were malignant, overall yield with repeated thoracenteses only approaches roughly 70% of the time for positive diagnosis of malignant effusion. I suggest patient follow-up with [facility] pulmonary for second opinion. Patient states he [...] drained Saturday. He has seen rheumatology at [facility] and they have not been able to determine a cause. Cytology/pathology have returned negative for malignancy. I am not of much assistance here at [facility] given our small size. Other thought would be infectious disease. Could also consider checking cytology yet again, but if this really were malignant, overall yield with repeated thoracenteses only approaches roughly 70% of the time for positive diagnosis of malignant effusion. I suggest patient follow-up with [facility] pulmonary for second opinion. Patient states he [...] Bryan HARRIS EDOB:[birth year] (73 yo M)Acc No.[id number]:01/15/2024 Follow Up Patient: Bryan DIXON Provider: Shahzad Gotti DO :1950 A ge:73 Y S ex:Male Date:01/15/2024 Address:[address] [place] [address] [facility], [id number] Pcp:Dawit Lorenz, Check In:08:52 AM ESTCheck O ut:09:39 AM EST Subjective: * Chief Complaints: * 3 MO-PLEURAL EFFUSION * HPI: G eneral: 3 MONTH F/U Patient went to [facility]. He had a thoracostomy done on 11/20/2023. Cytology/pathology all returned negative for malignancy. The pleural fluid has not decreased in production; he then required insertion of a Pleurx catheter. Several months later, he continues to have approximately 500 mL of pleural fluid drained on a Saturday basis. He has seen rheumatology there who have not been able to identify a cause. [facility] was attempting to set them up with their own steel cutter; the initial date was 6 months from now, but it has been moved up several months. Every attempt to get a pulmonary function test in the past failed due to issues with fluid accumulation. He voiced he would prefer to get a PFT done here at [facility]. I reviewed multiple records from [facility] today. Patient's main complaint today is to [...] recently had a Right Thoracoscopy performed at [facility] by . Patient complains of Chronic Cough with vomiting. Patient states he was seen by [facility] Pulmonary & Rheumatology (). Patient [...] (90 Base) MCG/ACT Aerosol Solution Inhalation Breztri Aerosphere(Lcwxjzg-Trajyisybta-Vxgnrmzhrj) 160/9/4.8 mcg aerosol 2 puffs inhalation BID Breztri Aerosphere(Ozblpzn-Ytaekovjsbm-Rywzemqaeg) 160/9/4.8 mcg aerosol 2 puffs inhalation BID EQ Space Chamber Anti-Static(Spacer/Aero-Holding Chambers) - Device Losartan Potassium 25 MG Tablet TAKE 1 TABLET BY MOUTH ONCE DAILY Oral Medication List reviewed and reconciled with the patientNot-Taking/PRN Albuterol Sulfate HFA 108 (90 Base) MCG/ACT Aerosol Solution Inhalation Not-Taking/PRN Breztri Aerosphere(Hvbzwnq-Ctnxuxymqpa-Xrihoewdks) 160/9/4.8 mcg aerosol 2 puffs inhalation BID Not-Taking/PRN Breztri Aerosphere(Gogovbh-Ydadhpnmjmm-Sqseinzpey) 160/9/4.8 mcg aerosol 2 puffs inhalation BID [...] Reason: D rug declined by patient B CA ACTION PLAN Above Normal BMI Follow-up D ietary management education, guidance, and counseling * Follow Up: 6 Months (Reason: Pleural effusion) * * Sign off status: Completed Visit Status: C HK (Check Out) true * Provider: Shahzad Gotti DO Date: 0 01/15/2024 Generated for Madeleine rehman/Alfredo/eTransmitting on: 0 12/07/2024 12:27 PM EDT History and Physical Notes * HPI (History of Present Illness) Category Sub-Category Detail Notes Category Not es General Patient present s for a follow-up for Pleural Effusion. Patient recently had a Right Thoracoscopy performed at [facility] by . Patient complains of Chronic Cough with vomiting. Patient states he was seen by [facility] Pulmonary & Rheumatology (). Patient is also under the care of . Patient currently has a drain tube currently placed and is being drained Saturday, Saturday & Fridays. Patient is not currently using any inhaler at this time. Examination Category Sub-Category Detail Notes Category Not es Exam GENERAL APPEARANCE: No significant coughi ng today Skin Normal Mouth Mcgrath and moist. No o ral candidiasis Trachea [...]
--- OUTSIDE RECORDS SUMMARY | 2024-01-20 07:32 | XMS_ITS ---
Author Organization The [facility] in [place] Address [address] [place] [address] Care Team Providers Care Shuttle Car Operator Name Role Phone Dawit Lorenz DO Primary Care Provider Calin Espino [phone] REASON FOR VISIT Willie Encounters Encounter Location Date Provider Diagnosis Pulmonary Medicine [place] [address] [place] [address] 01/20/2024 Calin Gotti Plan Of Treatment No Information Progress Notes * Bryan HARRIS EDOB:[birth year] (73 yo M)Acc No.[id number]:01/20/2024 Patient: Reinaldo DUNLAPBryan :1950 A ge:73 Y S ex:Male Address:[facility] [place] [address], [address] * Addendum: * true * Date: Generated for Printi ng/Fadhirajg/eTransmitting on: 0 12/07/2024 12:28 PM EDT
--- OUTSIDE RECORDS SUMMARY | 2024-07-20 18:00 | XMS_ITS | Encounter Summary ---
Author Organization [facility] Address [address] [place], [place] [address] Care Team Providers Care Ambulette Driver Name Role Phone Jere Sales MD Unavailable [phone] Calin Gotti DO Unavailable [phone] Jose Antonio Meyers MD Primary Care Provider [phone] Source Comments In the event this information is protected by the Federal Confidentiality of Alcohol and Drug AbusePatient Records regulations: The Federal rules restrict any use of the information to criminally investigate or prosecute any alcohol or drug abuse patient.[facility] Reason for Visit * Auth/Cert (Routine) Specialty Diagnoses / Procedures Referred By Contac t Referred To Contact ADMITTING Diagnoses 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] Procedures [facility] INCL FLUOR GDNCE DX W/CELL WASHG SPX BRONCHOSCOPY FLEXIBLE ADULT Admitting [address] [place] [address] Referral ID Status Reason Start Date Expiration Date Visits Re quested Visits Authorized [id number] 1 1 Encounter Details Date Type Department Care Team (Latest Contact Info) Description 07/20/2024 5:00 PM [facility] Hospital Encounter Admitting [address] [address] Bryn Andrea MD [address] [place] [address] 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 No 11/21/2023 Area Deprivation Index Answer Date Hari rded National Score (1-100), lower number is lower ri 68 12/11/2023 State Score (1-10), lower number is lower risk 5 12/11/2023 Data from: https://www.neighborhoodatlas.[facility]/. Last address used for calculation 2230 12/11/2023 [...] Outpatient PROCEDURE: Right Thoracentesis with Ultrasound guidance METAL COATER OPERATOR: Roseann London MD OXYGEN THERAPY TECHNICIAN: Rzea Thompson (resident), REFERRING PHYSICIAN/SERVICE Dr. Riggs (pulmonary) [...] a teaching physician. Roseann Rosario MD Pager [phone] September 08, 2024 12:45 PM documented in this encounter Plan of Treatment Upcoming Encounters Date Type Department Care Team (Late st Contact Info) Description 12/15/2024 11:15 AM EDT [place] [address] [place] [address] [place] [address] [place] [address] Follow-up 12/16/2024 12:30 PM EDT Office Visit Vascular Surgery [address] [place] [address] Extremity cyanosis [R23.0] 12/16/2024 2:30 PM EDT Office Visit Vascular Surgery [address] [place] [address] Extremity cyanosis [R23.0] 12/16/2024 3:30 PM EDT Office Visit Vascular Surgery [address] [place] [address] Extremity cyanosis [R23.0] 12/22/2024 6:00 PM EDT [facility] [address] [address] Araseli Wall APRN.PHYSICS PROFESSOR [address] [place] [address] Elevated alkaline phosphatase leve 05/21/2025 2:00 PM EST Office Visit Cardiology [address] [place] [address] [place] [address] [facility] [place] [address] 6 month follow up documented as of [...] Routine 07/20/2024 1:30 PM EST Pleural effusion [facility] INCL FLUOR GDNCE DX W/CELL WASHG SPX 07/20/2024 12:00 PM EST Bronchiolar disease documented in this encounter Results * PROTEIN, BODY FLUID (07/20/2024 1:30 PM EST) Protein, Body Fluid 2.2 See Comment g/dL 07/20/2024 6:39 PM EST [facility] Comment: Serous fluids: Effusions are [...] document C49A. RAJEEV Bui: Clinical Laboratory Standards [place]: 2007. Fluid, Thoracentesis PLEURAL FLUID / Unknown 07/20/2024 1:30 PM EST 07/20/2024 5:01 PM EST us Bryn Andrea MD LABORATORY Final Result [facility] [address] [facility] Desk [place] [id number], * LACTATE DEHYDROGENASE, BODY FLUID (07/20/2024 1:30 PM EST) LD,Body Fluid 167 See Comment U/L 07/20/2024 6:39 PM EST [facility] Comment: Pleural fluids: Pleural fluid [...] document C49A. RAJEEV Bui: Clinical Laboratory Standards [place]: 2007. Reference: 2. Rafael STARK, Fei Doyle. [...] us Bryn Andrea MD LABORATORY Final Result [facility] [address] [address], [place] * ALBUMIN, BODY FLUID (07/20/2024 1:30 PM EST) Albumin, Body Fluid 1.4 See Comment g/dL 07/20/2024 6:39 PM EST [facility] Comment: Body Fluid Albumin may [...] document C49A. RAJEEV Bui: Clinical Laboratory Standards [place]: 2007. 2. Dionicio SERNA. Serum to ascites albumin gradient. UpToDate. 2015. Accessed on September 28, 2015. Body Fluid Type (Albumin) Pleural Cavity, Right 07/20/2024 6:39 PM EST [facility] Comment:recurrent pleual eff usion on right Fluid, Thoracentesis PLEURAL FLUID / Unknown 07/20/2024 1:30 PM EST 07/20/2024 5:01 PM EST us Bryn Andrea MD LABORATORY Final Result [facility] [address] [facility] Desk [address] [place] [address], documented in this encounter Visit Diagnoses Diagnosis Pleural effusion Unspecified pleural effusion documented in this encounter Care Teams Ambulette Driver Relationship Specialty Start [place] [address] [place] [address] PCP - General Family Medicine 12/29/23 Jere Sales MD [address] [address] Referring Gastroenterology 12/05/20 Calin Gotti DO [address] [place] [address] Internal Medicine 10/16/23 documented as of this encounter
--- OUTSIDE RECORDS SUMMARY | 2024-07-21 05:30 | XMS_ITS ---
Author Organization [facility] in [place] Address [address] [place] [address] Care Team Providers Care Casework Manager Name Role Phone Dawit Lorenz DO Primary Care Provider Tasneem fernandez Shila Gottihan Unavailable [phone] Allergies Allergen (clinical drug ingredient) Drug/Non Drug [...] Encounter Location Date Provider Diagnosis Pulmonary Medicine [place] [address] [place] [address] 07/21/2024 Calin Gotti Pleural effusion J90 Assessments [...] able to offer would be referral to [facility] in [place], [place] for a third opinion. At this [...] able to offer would be referral to [facility] in [place], [place] for a third opinion. At this time, I am not contributing anything additional to his therapy. He will follow-up as needed. Next Appt Details Follow Up: PRN, Reason: Progress Notes * Bryan HARRIS EDOB:[birth year] (74 yo M)Acc No.[id number]:07/21/2024 Follow Up Patient: Bryan DIXON Provider: Shahzad Gotti DO :1950 A ge:74 Y S ex:Male Date:07/21/2024 Address:[address] [place] [address] , [facility], [id number] Pcp:Dawit Lorenz, Check In:08:58 AM ESTCheck O ut:10:10 AM EST Subjective: * Chief Complaints: * 6 MO-PLEURAL EFFUSION * HPI: G eneral: Patient was last seen 01/15/2024. The last communication regarding the patient was from a Dr. Meyers from [facility], a PCP who was coordinating care between [facility] specialists. He expressed concern about vasculitis; the patient was to see [facility] rheumatology. Other than this, we have received no further communications from [facility] regarding the patient's care. Last visit, the patient had a right-sided Pleurx catheter. Cynthia garcía still has the Pleurx catheter in. He is now being seen by Dr. Triston Riggs, pulmonogist @ [facility]. He has seen multiple other pulmonologists @ [facility]. None still have an exact clue for [...] is under the care of [facility] Specialist. Patient reports being drained daily by [...] (90 Base) MCG/ACT Aerosol Solution Inhalation Breztri Aerosphere(Dtfwnso-Swreahnhsys-Qabobnfbee) 160/9/4.8 mcg aerosol 2 puffs inhalation BID Breztri Aerosphere(Jbvkwau-Nvgdqcggnzx-Lzbyicdzhc) 160/9/4.8 mcg aerosol 2 puffs inhalation BID EQ Space Chamber Anti-Static(Spacer/Aero-Holding Chambers) - Device Furosemide 80 MG Tablet Oral Losartan Potassium 25 MG Tablet TAKE 1 TABLET BY MOUTH ONCE DAILY Oral Medication List reviewed and reconciled with the patientDiscontinued Albuterol Sulfate HFA 108 (90 Base) MCG/ACT Aerosol Solution Inhalation Discontinued Breztri Aerosphere(Kmnonok-Bgziilsgqir-Wxhheakvdx) 160/9/4.8 mcg aerosol 2 puffs inhalation BID Discontinued Breztri Aerosphere(Ehywvxp-Okvbkpwzzlp-Ekauixucai) 160/9/4.8 mcg aerosol 2 puffs inhalation BID [...] Reason: D rug declined by patient B ND ACTION PLAN Above Normal BMI Follow-up D ietary management education, guidance, and counseling R SV Vaccine-05/27/2024. * Follow Up: P RN * * Sign off status: Completed Visit Status: C HK (Check Out) true * Provider: Shahzad Gotti DO Date: 07/21/2024 Generated for Madeleine rehman/Alfredo/Madelaineitting on: 12/07/2024 12:27 PM EDT History and Physical Notes * Examination Category Sub-Category Detail Notes Category Not es Exam GENERAL APPEARANCE: No acute distress Skin Normal Mouth [place] and moist. No o ral candidiasis Trachea [...]
--- OUTSIDE RECORDS SUMMARY | 2024-11-23 10:23 | XMS_ITS | Encounter Summary ---
Author Organization [facility] Address [address] [place] [address] Care Team Providers Care Clinical Scientist Name Role Phone Jere Sales MD Unavailable [phone] Calin Gotit DO Unavailable [phone] Jose Antonio Meyers MD Primary Care Provider [phone] Source Comments In the event this information is protected by the Federal Confidentiality of Alcohol and Drug AbusePatient Records regulations: The Federal rules restrict any use of the information to criminally investigate or prosecute any alcohol or drug abuse patient.[facility] Reason for Visit * Reason Comments Radio Gen A21 Encounter Details Date Type Department Care Team (Latest Contact Info) Description 11/23/2024 10:23 AM EDT - 11/23/2024 1:59 PM EDT Hospital Encounter Radiology [address] [address] Pleural effusion, not elsewhere classified [J90] Discharge Disposition: Home Social History Tobacco Use Types Packs/Day Years Used Date Smoking Tobacco: Never Smokeless Tobacco: Never Alcohol Use Standard Drinks/Week Comments Yes 0 (1 standard drink = 0.6 oz pure alcohol) socially, no drink since 06/2023 [facility] Utilities Answer Date Recorded In the [...] is lower risk 5 12/11/2023 Data from: https://www.neighborhoodatlas.medicine.[facility].edu/. Last address used for calculation 2230 [...] mouth once daily. 90 tablet 11/13/2024 02/11/2025 ascorbic acid, vitamin C, (VITAMIN C) 500 mg tablet Take 1,000 mg by mouth once daily. multivit-min/ferr ous fumarate (MULTI VITAMIN ORAL) Take 1 tablet by mouth once daily. guaifenesin/dextr omethorphan (MUCINEX DM ORAL) Take by mouth two times a day. loratadine (CLARITIN) 10 mg tablet Take 10 mg by mouth once daily. calcium hgs-akm-S1-Zn-fluoroscope operator -kian 250 mg-40 mg- 125 unit-3.75mg tab Take by mouth. diclofenac (VOLTAREN) 1 % topical gel 01/22/2024 allopurinol (ZYLOPRIM) 300 mg tablet Take 300 mg by mouth once daily. 10/21/2020 atorvastatin (LIPITOR) 10 mg tablet Take 1 tablet by mouth once daily. 10/31/2020 amoxicillin-clavu lanate potassium (AUGMENTIN) 875-125 mg per tablet Take 1 tablet by mouth every 12 hours for 6 days. 12 tablet 11/19/2024 5:59 PM EDT 11/19/2024 11/25/2024 quiNINE 324 mg capsuleIndication s:Cramp and spasm Take 1 capsule by mouth twice daily 60 capsule 10/19/2024 11/25/2024 potassium chloride (K-TAB) 20 mEq TbERIndications:R ecurrent 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,Hypokalemia 2 tablets by ORAL/FEEDING TUBE route three times a day. 540 tablet 09/04/2024 12/03/2024 documented as of this encounter Progress Notes [...] PATIENT PRESENTS WITH AN IMPLANTABLE OR ATTACHED FINANCE BROKER: No RADIOLOGY DEPARTMENT: General X-ray: Exam(s) Completed: Chest X-Ray PERIPHERAL IV DATA: Not applicable SIGNED BY: RT Franca(Sandee) November 23, 2024 12:31 PM documented in this encounter Plan of Treatment Upcoming Encounters Date Type Department Care Team (Late st Contact Info) Description 12/15/2024 11:15 AM EDT [place] [address] [facility] [place] [address] [place] [address] [facility] [place] [address] Follow-up 12/16/2024 12:30 PM EDT Office Visit Vascular Surgery [address] [place] [address] Extremity cyanosis [R23.0] 12/16/2024 2:30 PM EDT Office Visit Vascular Surgery [address] [place] [address] Extremity cyanosis [R23.0] 12/16/2024 3:30 PM EDT Office Visit Vascular Surgery [address] [place] [address] Extremity cyanosis [R23.0] 12/22/2024 6:00 PM EDT [facility] Gastroenterology [address] [address] Araseli Wall, LETICIA.WHEEL ALIGNMENT MECHANIC [address] [place] [address] Elevated alkaline phosphatase leve 05/21/2025 2:00 PM EST Office Visit Cardiology [address] [place] [address] [place] [address] [facility] [place] [address] 6 month follow up documented as of [...] 11/23/2024 1:44 PM EDT IMPRESSION: See result. Sole Tacker: ALONSO Transcribe Date/Time: Nov 23 2024 1:39P [...] the left seventh rib. Procedure Note Provider, [facility] [place] - 11/23/2024 * * *Final Report* * [...] left seventh rib. IMPRESSION IMPRESSION: See result. Sole Tacker: PSCB Transcribe Date/Time: Nov 23 2024 1:39P Dictated by : CRISTOBAL ROACH MD This examination was interpreted and the report reviewed and electronically signed by: CRISTOBAL ROACH MD on Nov 23 2024 1:42PM EST us Triston Riggs MD RAD-PAMA Final Result documented in this encounter Visit Diagnoses Diagnosis Pleural effusion, not elsewhere classified documented in this encounter Care Teams Clinical Scientist Relationship Specialty Start [place] [address] [facility] [place] [address] PCP - General Family Medicine 12/29/23 Jere Sales MD [address] [address] Referring Gastroenterology 12/05/20 Calin Gotti DO [address] [place] [address] Internal Medicine 10/16/23 documented as of this encounter
--- OUTSIDE RECORDS SUMMARY | 2024-11-23 12:00 | XMS_ITS | Encounter Summary ---
Author Organization [facility] Address [address] [place] [address] Care Team Providers Care Dipper Machine Operator Name Role Phone Jere Sales MD Unavailable [phone] Calin Gotti DO Unavailable [phone] Jose Antonio Meyers MD Primary Care Provider [phone] Source Comments In the event this information is protected by the Federal Confidentiality of Alcohol and Drug AbusePatient Records regulations: The Federal rules restrict any use of the information to criminally investigate or prosecute any alcohol or drug abuse patient.[facility] Reason for Visit * Reason Comments Effusion Encounter Details Date Type Department Care Team (Late st Contact Info) Description 11/23/2024 12:00 PM EDT Office Visit Pulmonary Medicine [address] [place] [address] Triston Riggs MD [address] [place] [address] Pleural effusion (Primary Dx); Pleuritis; Pericardial effusion (noninflammatory) (HCC); Lymphocytic colitis; Other ascites Social History Tobacco Use Types Packs/Day Years Used Date Smoking Tobacco: Never Smokeless Tobacco: Never Alcohol Use Standard Drinks/Week Comments Yes 0 (1 standard drink = 0.6 oz pure alcohol) socially, no drink since 06/2023 [facility] Utilities Answer Date Recorded In the past 12 months has th e [employer], gas, oil, or water [employer] threatened to shut off services in your [...] is lower risk 5 12/11/2023 Data from: https://www.neighborhoodatlas.medicine.[facility].edu/. Last address used for calculation 2230 12/11/2023 Sex and Gender Information Value Date Recorded Sex Assigned at Not on file Legal Sex Male 12:24 PM EDT Gender Identity Not on file Sexual Orientation Not on file documented as of this encounter Last Filed Vital Signs Vital Sign Reading Time Taken Comments Blood Pressure 120/74 11/23/2024 10:15 PM EDT Pulse 88 11/23/2024 10:15 PM EDT Temperature 36.2 C (97.2 F) 11/23/2024 10:15 PM EDT Respiratory Rate 16 11/23/2024 10:15 PM EDT Oxygen Saturation 98% 11/23/2024 10:15 PM EDT Inhaled Oxygen Concentration - - [...] Progress Notes * Triston Riggs MD - 11/23/2024 12:00 PM EDT Images from the original note were not included. Respiratory [place] [facility] Consultation CC: Persistent RIGHT pleural effusion Bryan Harris is a 74 year old male sent by Dr. STEPHANE Douglas MD for evaluation of persistent RIGHT pleural effusion. My final recommendations will be communicated to the requesting health care provider by way of the shared medical record for internal providers or letter via the [employer] [place] - [employer] Postal Service for external providers. Assessment and [...] Lymphocytic colitis 3. Chronic cough Plan: 1. Plan for RTC in 6 - 8 weeks for removal of suture from insertion site of TPC. 2. Continue to follow closely post removal Standing order for CxR in place and Mr. Harris aware he needs to call and schedule prior to arriving. Change occlusive dressing daily until three consecutive days without drainage. Keep exit site dry and without submersion for 10 days 3. Continue diuretic regimen as established. 4. Monitor salt intake 5. Check daily weights. 6. Encouraged regular progressive physical activity. HPI: Mr. Bryan Harris is a 74 y/o male with a history of persistent RIGHT pleural effusion with TPC placed last November 2023 during VATS thoracoscopy after pleural biopsy and unsuccessful chemical/mechanical pleurodesis. Since the TPC was placed there has been consistent out put with aspiration of the TPC. Initially after the TPC was placed he [...] did he have some sense of limitation. Last week on 11/19 he was seen and confirmed on CxR, US and after drainage of TPC there was minimal fluid in RIGHT chest. He has been treated with 2, 400 mg doses of triamcinolone without intrapleurally after therapeutic thoracentesis. With each dose there was progressive decline in pleural fluid output. The TPC was removed with considerable difficulty (cuff more than 5 cm from exit site). Some air wasentrained during the removal. The initial dressing was saturated with blood after < 12 hours. His changed the dressing twice more over the weekend, each time secondary to bleeding (pictures provided show decreasing staining of gauze.) Mr. Harris notes no notable pain or discomfort over his right chest or any pleuritic pain. There is no change in his respiratory status. He does note sense of malaise and unsteadiness which predate the TPC removal. He will complete course of oral antibiotics. [place], [place] is home care provider. He continues [...] Current Outpatient Medications Medication Sig Dispense Refill amoxicillin-clavulanate potassium (AUGMENTIN) 875-125 mg per tablet Take 1 tablet by mouth every 12hours for 6 days. 12 tablet 0 torsemide (DEMADEX) 100 mg tablet [...] 10 mg by mouth once daily. calcium xsf-iiq-U3-Zn-copper plate printer-kian 250 mg-40 mg- 125 unit-3.75mg tab Take by mouth. diclofenac (VOLTAREN) 1 % topical gel allopurinol (ZYLOPRIM) 300 mg tablet Take 300 [...] systems is otherwise negative. PHYSICAL EXAMINATION: BP 120/74 Pulse 88 Temp 97.2 Resp 16 SpO2 98%. Blood pressure and pulse repeated 3 and 5 min after changing from sitting to standing; no change. General appearance: Well appearing, alert, in no [...] or rales appreciated. No accessory muscle use. RIGHT TPC site with small clot and small (quarter size) stain on dressing over exit site. Region between insertion and exit site with brusing. No erythema or induration. Suture at insertion site intact and without drainage. Cardiovascular: RRR without gallop, or rubs or murmur. No peripheral edema noted in the upper or lower extremities. Normal temperature of all 4 extremities. Abdomen/GI: Abdomen soft, non-tender, non-distended. No masses or organomegaly noted. No hepatojugular reflux. Musculoskeletal: No clubbing or cyanosis of fingers. Trace LE edema mid courtney. Skin:No petechiae, ecchymoses, rash noted. NO subcutaneous emphysema. Neuro: Oriented X 3 with normal mood/affect. DATA: I personally reviewed the labs, PFTs and radiographs I re-reviewed his most recent chest radiographic image and report, dated 11/23/2024 compared to 11/19/2024, 05/18/2025 as well as multipl priors through 07/08/2023 . I agree with the following assessment. The radiologist notes; Lungs and pleura: No consolidation. Mild decrease in size of a small right pneumothorax with pleural stripe by approximately 1.5 cm along the right lower lateral chest wall/right costophrenic recess (previously 3.0 cm at a similar level). Trace right pleural effusion. No substantial left pleural effusion. No left pneumothorax. Cardiomediastinal silhouette: Normal cardiomediastinal silhouette. Mild calcification of the aorticarch. Bones and soft tissues: Degenerative changes are present within the thoracic spine. Remote fractureof the left seventh rib. I reviewed his recent chest CT scan [...] UltraSens C-Reactive Protein <3.1 mg/L 13.2 (H) [facility] Reference Range & Units Most Recent 12/26/23 08:54 03/03/24 13:30 03/30/24 11:53 04/20/24 13:25 07/29/24 11:29 09/11/24 13:13 10/14/24 15:53 10/15/24 10:25 11/05/24 11:42 11/12/24 13:30 WBC 3.70 - 11.00 k/uL 8.79 11/12/24 13:30 5.29 7.63 6.84 7.96 7.62 11.59 (H) 7.85 [...] 1.21 0.95 (L) 0.80 (L) 0.91 (L) [place]% % 7.6 11/12/24 13:30 11.7 12.[address] [place] <0.87 k/uL 0.67 11/12/24 13:30 0.80 1.03 [...] 36 % 39 80 (H) 80 (H) [place]%, BF % 6 Macro%, BF 64 - [...] the clinical findings is suggested. F/u: 6 weeks. I spent 35 minutes in the visit, with more than 50% of the total wfer-ve-whas time of the visit in counseling / coordination of care. Triston Riggs M.D. Staff, Interventional Pulmonology. Pulmonary, Allergy & Critical Care Medicine [facility] documented in this encounter Plan of Treatment Upcoming Encounters Date Type Department Care Team (Late st Contact Info) Description 12/15/2024 11:15 AM EDT [place] [address] [place] [address] [place] [address] [place] [address] Follow-up 12/16/2024 12:30 PM EDT Office Visit Vascular Surgery [address] [facility] [place] [address] Extremity cyanosis [R23.0] 12/16/2024 2:30 PM EDT Office Visit Vascular Surgery [address] [place] [address] Extremity cyanosis [R23.0] 12/16/2024 3:30 PM EDT Office Visit Vascular Surgery [address] [place] [address] Extremity cyanosis [R23.0] 12/22/2024 6:[address] [facility] Gastroenterology [address] [address] Araseli Wall APRN.ROAD OILING TRUCK DRIVER [address] [place] [address] Elevated alkaline phosphatase leve 05/21/2025 2:00 PM EST Office Visit Cardiology [address] [place] [address] [place] [address] [facility] [place] [address] 6 month follow up documented as of this encounter Goals Goal Patient Goal Type Associated Problems Recent Progress Patient-Stated? Author Blood Pressure < 130/80 Blood Pressure 120/74( 025 10:15 PM EDT) No Sung Hartley MD documented as of this encounter Visit Diagnoses Diagnosis Pleural effusion- Primary Unspecified pleural effusion Pleuritis Pleurisy without mention of effusion or current tuberculosis Pericardial effusion (noninflammatory) (HCC) Lymphocytic colitis Other and unspecified noninfectious gastroenteritis and colitis Other ascites documented in this encounter Care Teams Dipper Machine Operator Relationship Specialty Start [place] [address] [facility] [place] [address] PCP - General Family Medicine 12/29/23 Jere Saels MD [address] [address] Referring Gastroenterology 12/05/20 Calin Gotti DO [address] [place] [address] Internal Medicine 10/16/23 documented as of this encounter
--- OUTSIDE RECORDS SUMMARY | 2024-11-23 14:00 | XMS_ITS | Encounter Summary ---
Author Organization [facility] Address [address] [place] [address] Care Team Providers Care Bobbin Loose End Finder Name Role Phone Jere Sales MD Unavailable [phone] Calin Gotti DO Unavailable [phone] Jose Antonio Meyers MD Primary Care Provider [phone] Source Comments In the event this information is protected by the Federal Confidentiality of Alcohol and Drug AbusePatient Records regulations: The Federal rules restrict any use of the information to criminally investigate or prosecute any alcohol or drug abuse patient.[facility] Reason for Visit * Diagnostic Procedure Only (Routine) - Closed Specialty Diagnoses / Procedures Referred By Contac t Referred To Contact [facility] Diagnoses Hepatomegaly Procedures US ELASTOGRAPHY LIVER ULTRASOUND ELASTOGRAPHY [place] [address] [place] [address] Phone: tel: fax: [place] [address] Referral ID Status Reason Start Date Expiration Date V isits Requested Visits Authorized [id number] Closed Auto-Generate d Referral 11/13/2024 12/13/2025 1 1 Encounter Details Date Type Department Care Team (Latest Contact Info) Description 11/23/2024 2:00 PM EDT - 11/23/2024 11:59 PM EDT Hospital Encounter Radiology [address] [place] [address] Hepatomegaly [R16.0] Discharge Disposition: Home Social History Tobacco Use Types Packs/Day Years Used Date Smoking Tobacco: Never Smokeless Tobacco: Never Alcohol Use Standard Drinks/Week Comments Yes 0 (1 standard drink = 0.6 oz pure alcohol) socially, no drink since 06/2023 [facility] Utilities Answer Date Recorded In the [...] is lower risk 5 12/11/2023 Data from: https://www.neighborhoodatlas.medicine.[facility]/. Last address used for calculation 2230 12/11/2023 [...] 10 mg by mouth once daily. calcium ebt-ows-H5-Zn-rn endoscopy -kian 250 mg-40 mg- 125 unit-3.75mg tab [...] 09/04/2024 12/03/2024 documented as of this encounter Plan of Treatment Upcoming Encounters Date Type Department Care Team (Late st Contact Info) Description 12/15/2024 11:15 AM EDT [place] [address] [place] [address] [place] [address] [place] [address] Follow-up 12/16/2024 12:30 PM EDT Office Visit Vascular Surgery [address] [place] [address] Extremity cyanosis [R23.0] 12/16/2024 2:30 PM EDT Office Visit Vascular Surgery [address] [facility] [place] [address] Extremity cyanosis [R23.0] 12/16/2024 3:30 PM EDT Office Visit Vascular Surgery [address] [place] [address] Extremity cyanosis [R23.0] 12/22/2024 6:00 PM EDT [facility] Gastroenterology [address] [address] Araseli Wall APRN.TRAINING ANALYST [address] [place] [address] Elevated alkaline phosphatase leve 05/21/2025 2:00 PM EST Office Visit Cardiology [address] [place] [address] [place] [address] [facility] [place] [address] 6 month follow up documented as of this encounter Goals Goal Patient Goal Type Associated Problems Recent Progress Patient-Stated? Author Blood Pressure < 130/80 Blood Pressure 120/74( 025 10:15 PM EDT) No Sung Hartley MD documented as of this encounter Procedures Procedure Name Priority Date/Time Associated Diagnosis Comments US ELASTOGRAPHY LIVER Routine 11/23/2024 3:05 PM EDT Hepatomegaly US ABD RIGHT UPPER QUADRANT Routine 11/23/2024 3:05 PM EDT Hepatomegaly documented in this encounter Results * US ELASTOGRAPHY LIVER (11/23/2024 3:05 PM EDT) Anatomical Region Laterality Modality Abdomen Ultrasound 11/23/2024 3:05 PM EDT Impressions 11/26/2024 7:37 AM EDT IMPRESSION: Morphological changes of chronic liver disease. No hepatic lesion. The liver stiffness assessment was 13.2kPa, compatible with compensated advanced chronic liver disease. Trace-small right pleural effusion. Note: Acoustic radiation force impulse (ARFI) liver stiffness assessment has been validated in patients with viral hepatitis and non-alcoholic fatty liver disease (NAFLD). Values may be elevated in clinical situations other than fibrosis, such as active hepatic inflammation, cholestasis, hepatic congestion (cardiac failure), infiltrative diseases or in the post-prandial state. User Acceptance Tester: ALONSO Transcribe Date/Time: Nov 26 2024 7:29A Dictated by : KRISTINA SALINAS MD This examination was interpreted and the report reviewed and electronically signed by: KRISTINA SALINAS MD on Nov 26 2024 7:35AM EST Narrative 11/26/2024 7:37 AM EDT * * *Final Report* * * DATE OF EXAM: Nov 23 2024 3:05PM [facility] - US ELASTOGRAPHY LIVER / PROCEDURE REASON: R16.0-Hepatomegaly * * * * Physician Interpretation * * * * EXAMINATION: RIGHT UPPER QUADRANT WITH QUANTITATIVE LIVER STIFFNESS ASSESSMENT (ARFI) ULTRASOUND CLINICAL HISTORY: Hepatomegaly. TECHNIQUE: Sonography of the right upper quadrant with quantitative liver stiffness assessment (ARFI) was performed. Images were obtained and stored in a permanent archive. MQ: URUQ_2 COMPARISON: CT enterography 11/04/2024, ultrasound 10/23/2024 RESULT: Pancreas: Normal sonographic appearance. Portions obscured: Body and tail Liver: Echotexture: Mildly coarsened Echogenicity: Heterogeneous Surface contour: Mildly nodular. Lesions: None. Biliary: No intrahepatic biliary duct dilation. CBD: 0.3 cm at the hilum. Gallbladder: Normal caliber -Contents: No cholelithiasis -Wall: Normal -Other: No pericholecystic fluid. Right Kidney: No hydronephrosis. Ascites: None. Liver Stiffness Assessment Median: 13.2 kPa Mean:12.6 kPa IQR / Median ratio: 19% suggesting a high quality data set. Other: Trace-small right pleural effusion. Procedure Note Provider, [facility] [place] - 11/26/2024 * * *Final Report* * * DATE OF EXAM: Nov 23 2024 3:05PM [facility] - US ELASTOGRAPHY LIVER / PROCEDURE REASON: R16.0-Hepatomegaly * * * * Physician Interpretation * * * * EXAMINATION: RIGHT UPPER QUADRANT WITH QUANTITATIVE LIVER STIFFNESS ASSESSMENT (ARFI) ULTRASOUND CLINICAL HISTORY: Hepatomegaly. TECHNIQUE: Sonography of the right upper quadrant with quantitative liver stiffness assessment (ARFI) was performed. Images were obtained and stored in a permanent archive. MQ: URUQ_2 COMPARISON: CT enterography 11/04/2024, ultrasound 10/23/2024 RESULT: Pancreas: Normal sonographic appearance. Portions obscured: Body and tail Liver: Echotexture: Mildly coarsened Echogenicity: Heterogeneous Surface contour: Mildly nodular. Lesions: None. Biliary: No intrahepatic biliary duct dilation. CBD: 0.3 cm at the hilum. Gallbladder: Normal caliber -Contents: No cholelithiasis -Wall: Normal -Other: No pericholecystic fluid. Right Kidney: No hydronephrosis. Ascites: None. Liver Stiffness Assessment Median: 13.2 kPa Mean:12.6 kPa IQR / Median ratio: 19% suggesting a high quality data set. Other: Trace-small right pleural effusion. IMPRESSION IMPRESSION: Morphological changes of chronic liver disease. No hepatic lesion. The liver stiffness assessment was 13.2kPa, compatible with compensated advanced chronic liver disease. Trace-small right pleural effusion. Note: Acoustic radiation force impulse (ARFI) liver stiffness assessment has been validated in patients with viral hepatitis and non-alcoholic fatty liver disease (NAFLD). Values may be elevated in clinical situations other than fibrosis, such as active hepatic inflammation, cholestasis, hepatic congestion (cardiac failure), infiltrative diseases or in the post-prandial state. User Acceptance Tester: [facility] Transcribe Date/Time: Nov 26 2024 7:29A Dictated by : KRISTINA SALINAS MD This examination was interpreted and the report reviewed and electronically signed by: KRISTINA SALINAS MD on Nov 26 2024 7:35AM EST us Jose Antonio Meyers MD US-PAMA Final Resul t * US ABD RIGHT UPPER QUADRANT (11/23/2024 3:05 PM EDT) Anatomical Region Laterality Modality Abdomen Ultrasound 11/23/2024 3:05 PM EDT Impressions 11/26/2024 7:37 AM EDT IMPRESSION: Morphological changes of chronic liver disease. No hepatic lesion. The liver stiffness assessment was 13.2kPa, compatible with compensated advanced chronic liver disease. Trace-small right pleural effusion. Note: Acoustic radiation force impulse (ARFI) liver stiffness assessment has been validated in patients with viral hepatitis and non-alcoholic fatty liver disease (NAFLD). Values may be elevated in clinical situations other than fibrosis, such as active hepatic inflammation, cholestasis, hepatic congestion (cardiac failure), infiltrative diseases or in the post-prandial state. User Acceptance Tester: ALONSO Transcribe Date/Time: Nov 26 2024 7:29A Dictated by : KRISTINA SALINAS MD This examination was interpreted and the report reviewed and electronically signed by: KRISTINA SALINAS MD on Nov 26 2024 7:35AM EST Narrative 11/26/2024 7:37 AM EDT * * *Final Report* * * DATE OF EXAM: Nov 23 2024 3:05PM [facility] 1032 - US ABD RIGHT UPPER QUADRANT / PROCEDURE REASON: R16.0-Hepatomegaly * * * * Physician Interpretation * * * * EXAMINATION: RIGHT UPPER QUADRANT WITH QUANTITATIVE LIVER STIFFNESS ASSESSMENT (ARFI) ULTRASOUND CLINICAL HISTORY: Hepatomegaly. TECHNIQUE: Sonography of the right upper quadrant with quantitative liver stiffness assessment (ARFI) was performed. Images were obtained and stored in a permanent archive. MQ: URUQ_2 COMPARISON: CT enterography 11/04/2024, ultrasound 10/23/2024 RESULT: Pancreas: Normal sonographic appearance. Portions obscured: Body and tail Liver: Echotexture: Mildly coarsened Echogenicity: Heterogeneous Surface contour: Mildly nodular. Lesions: None. Biliary: No intrahepatic biliary duct dilation. CBD: 0.3 cm at the hilum. Gallbladder: Normal caliber -Contents: No cholelithiasis -Wall: Normal -Other: No pericholecystic fluid. Right Kidney: No hydronephrosis. Ascites: None. Liver Stiffness Assessment Median: 13.2 kPa Mean:12.6 kPa IQR / Median ratio: 19% suggesting a high quality data set. Other: Trace-small right pleural effusion. Procedure Note Provider, [facility] [place] - 11/26/2024 * * *Final Report* * * DATE OF EXAM: Nov 23 2024 3:05PM [facility] - US ABD RIGHT UPPER QUADRANT / PROCEDURE REASON: R16.0-Hepatomegaly * * * * Physician Interpretation * * * * EXAMINATION: RIGHT UPPER QUADRANT WITH QUANTITATIVE LIVER STIFFNESS ASSESSMENT (ARFI) ULTRASOUND CLINICAL HISTORY: Hepatomegaly. TECHNIQUE: Sonography of the right upper quadrant with quantitative liver stiffness assessment (ARFI) was performed. Images were obtained and stored in a permanent archive. MQ: URUQ_2 COMPARISON: CT enterography 11/04/2024, ultrasound 10/23/2024 RESULT: Pancreas: Normal sonographic appearance. Portions obscured: Body and tail Liver: Echotexture: Mildly coarsened Echogenicity: Heterogeneous Surface contour: Mildly nodular. Lesions: None. Biliary: No intrahepatic biliary duct dilation. CBD: 0.3 cm at the hilum. Gallbladder: Normal caliber -Contents: No cholelithiasis -Wall: Normal -Other: No pericholecystic fluid. Right Kidney: No hydronephrosis. Ascites: None. Liver Stiffness Assessment Median: 13.2 kPa Mean:12.6 kPa IQR / Median ratio: 19% suggesting a high quality data set. Other: Trace-small right pleural effusion. IMPRESSION IMPRESSION: Morphological changes of chronic liver disease. No hepatic lesion. The liver stiffness assessment was 13.2kPa, compatible with compensated advanced chronic liver disease. Trace-small right pleural effusion. Note: Acoustic radiation force impulse (ARFI) liver stiffness assessment has been validated in patients with viral hepatitis and non-alcoholic fatty liver disease (NAFLD). Values may be elevated in clinical situations other than fibrosis, such as active hepatic inflammation, cholestasis, hepatic congestion (cardiac failure), infiltrative diseases or in the post-prandial state. User Acceptance Tester: ALONSO Transcribe Date/Time: Nov 26 2024 7:29A Dictated by : KRISTINA SALINAS MD This examination was interpreted and the report reviewed and electronically signed by: KRISTINA SALINAS MD on Nov 26 2024 7:35AM EST Jose Antonio Meyers MD -PAMA Final Resul t documented in this encounter Visit Diagnoses Diagnosis Hepatomegaly documented in this encounter Care Teams Bobbin Loose End Finder Relationship Specialty Start [place] [address] [facility] [address] PCP - General Family Medicine 12/29/23 Jere Sales MD [address] [address] Referring Gastroenterology 12/05/20 Calin Gotti DO [address] [place] [address] Internal Medicine 10/16/23 documented as of this encounter
--- OUTSIDE RECORDS SUMMARY | 2024-12-07 12:26 | XMS_ITS | Encounter Summary ---
Author Organization [facility] Address [address] [place] [address] Care Team Providers Care Prepress Stripper Name Role Phone Jere Sales MD Unavailable [phone] Calin Gotti DO Unavailable [phone] Jose Antonio Meyers MD Primary Care Provider [phone] Source Comments In the event this information is protected by the Federal Confidentiality of Alcohol and Drug AbusePatient Records regulations: The Federal rules restrict any use of the information to criminally investigate or prosecute any alcohol or drug abuse patient.[facility] Encounter Details Date Type Department Care Team (Late st Contact Info) Description 02/10/2024 Get Medical Advice Thoracic Surgery [address] [place] [address] Cecilia Guadarrama APRN.TEMPERING KILN TENDER [address]70 [place] [address] Willie Kimberly Social History Tobacco Use Types Packs/Day Years Used Date Smoking Tobacco: Never Smokeless Tobacco: Never Alcohol Use Standard Drinks/Week Comments Yes 0 (1 standard drink = 0.6 oz pure alcohol) socially, no drink since 06/[address] [facility] Utilities Answer Date Recorded In the [...] risk 5 12/11/2023 Data from: https://www.neighborhoodatlas.medicine.[facility].edu/. Last address used for calculation 2230 [...] EDT [place] [address] [place] [address] [place] [address] [place] [address] Follow-up 12/16/2024 12:30 PM EDT Office Visit Vascular Surgery 5700 [facility] [place] [address] Extremity cyanosis [R23.0] 12/16/2024 2:30 PM EDT Office Visit Vascular Surgery 5700 [facility] [place] [address] Extremity cyanosis [R23.0] 12/16/2024 3:30 PM EDT Office Visit Vascular Surgery 5700 [facility] [place] [address] Extremity cyanosis [R23.0] 12/22/2024 6:[address] [facility] Gastroenterology [address] [address] Araseli Wall APRN.TEMPERING KILN TENDER [address] [place] [address] Elevated alkaline phosphatase leve 05/21/2025 2:00 PM EST Office Visit Cardiology [address] [place] [address] [place] [address] [place] [address] 6 month follow up documented as of this encounter Goals Goal Patient Goal Type Associated Problems Recent Progress Patient-Stated? Author Blood Pressure < 130/80 Blood Pressure 120/74( 025 10:15 PM EDT) No Sung Hartley MD documented as of this encounter Visit Diagnoses Not on filedocumented in this encounter Care Teams Prepress Stripper Relationship Specialty Start [place] [address] [facility] [place] [address] PCP - General Family Medicine 12/29/23 Jere Sales MD [address] [address] Referring Gastroenterology 12/05/20 Calin Gotti DO [address] [place] [address] Internal Medicine 10/16/23 documented as of this encounter
--- OUTSIDE RECORDS SUMMARY | 2024-12-07 12:27 | XMS_ITS | Encounter Summary ---
Author Organization [facility] Address [address] [place] [address] Care Team Providers Care Quality Associate Name Role Phone Jere Sales MD Unavailable [phone] Calin Gotti DO Unavailable [phone] Jose Antonio Meyers MD Primary Care Provider [phone] Source Comments In the event this information is protected by the Federal Confidentiality of Alcohol and Drug AbusePatient Records regulations: The Federal rules restrict any use of the information to criminally investigate or prosecute any alcohol or drug abuse patient.[facility] Encounter Details Date Type Department Care Team (Late st Contact Info) Description 02/10/2024 Get Medical Advice Thoracic Surgery [address] [place] [address] Cecilia Guadarrama APRN.FILER FINISH [address] [place] [address] Community Administrator/Goldie lar Appt Social History Tobacco Use Types [...] is lower risk 5 12/11/2023 Data from: https://www.neighborhoodatlas.medicine.[facility].edu/. Last address used for calculation [...] ED[place] [address] [place] [address] [place] [address] [place] [address] Follow-up 12/16/2024 12:30 PM EDT Office Visit Vascular Surgery [address] [facility] [place] [address] Extremity cyanosis [R23.0] 12/16/2024 2:30 PM EDT Office Visit Vascular Surgery [address] [facility] [place] [address] Extremity cyanosis [R23.0] 12/16/2024 3:30 PM EDT Office Visit Vascular Surgery 5700 [place] [address] Extremity cyanosis [R23.0] 12/22/2024 6:00 PM EDT [facility] Gastroenterology [address] [address] Araseli Wall APRN.FILER FINISH [address] [facility] [place] [address] Elevated alkaline phosphatase leve 05/21/2025 2:00 PM EST Office Visit Cardiology [address] [place] [address] [place] [address] [facility] [place] [address] 6 month follow up documented as of this encounter Goals Goal Patient Goal Type Associated Problems Recent Progress Patient-Stated? Author Blood Pressure < 130/80 Blood Pressure 120/74( 025 10:15 PM EDT) No Sung Hartley MD documented as of this encounter Visit Diagnoses Not on filedocumented in this encounter Care Teams Quality Associate Relationship Specialty Start [place] [address] [place] [address] PCP - General Family Medicine 12/29/23 Jere Sales MD [address] [address] Referring Gastroenterology 12/05/20 Calin Gotti DO [address] [place] [address] Internal Medicine 10/16/23 documented as of this encounter
--- OUTSIDE RECORDS SUMMARY | 2024-12-07 12:27 | XMS_ITS | Encounter Summary ---
Author Organization [facility] Address [address] [place] [address] Care Team Providers Care Vp Construction Name Role Phone Unavailable Primary Care Provider Unavailabl e Encounter Details Date Type Department Care Team (Late st Contact Info) Description 01/01/2023 Abstract [facility] [address] [place] [address] Bianca Bynum MD [address] [place] [address] Social History Tobacco Use Types Packs/Day Years [...] NB OPHT [address] [place] [address] Arley Hamilton DO [address] [place] [address] 08/31/2025 1:05 PM EDT Office Visit [facility] [address] [place] [address] Bianca Bynum MD [address] [place] [address] documented as of this encounter Visit Diagnoses Not on filedocumented in this encounter
--- OUTSIDE RECORDS SUMMARY | 2024-12-07 12:27 | XMS_ITS | Encounter Summary ---
Author Organization [facility] Address [facility] [place] [address] Care Team Providers Care Biodiesel Plant Superintendent Name Role Phone Jere Sales MD Unavailable [phone] Calin Gotti DO Unavailable [phone] Jose Antonio Meyers MD Primary Care Provider [phone] Source Comments In the event this information is protected by the Federal Confidentiality of Alcohol and Drug AbusePatient Records regulations: The Federal rules restrict any use of the information to criminally investigate or prosecute any alcohol or drug abuse patient.[facility] Encounter Details Date Type Department Care Team (Late st Contact Info) Description 09/21/2024 Get Medical Advice Pulmonary Medicine [address] [place] [address] Triston Riggs MD [address] [place] [address] Willie Harris 1950 Steroid Injections Social History Tobacco Use Types Packs/Day Years Used Date Smoking Tobacco: Never Smokeless Tobacco: Never Alcohol Use Standard Drinks/Week Comments Yes 0 (1 standard drink = 0.6 oz pure alcohol) socially, no drink since 06/2023 [facility] Utilities Answer Date Recorded In [...] is lower risk 5 12/11/2023 Data from: https://www.neighborhoodatlas.medicine.[facility].edu/. Last address used for calculation 2230 12/11/2023 [...] EDT [place] [address] [place] [address] [place] [address] [place] [address] Follow-up 12/16/2024 12:30 PM EDT Office Visit Vascular Surgery [address] [facility] [place] [address] Extremity cyanosis [R23.0] 12/16/2024 2:30 PM EDT Office Visit Vascular Surgery [address] [facility] [place] [address] Extremity cyanosis [R23.0] 12/16/2024 3:30 PM EDT Office Visit Vascular Surgery 5700 [place] [address] Extremity cyanosis [R23.0] 12/22/2024 6:00 PM EDT [facility] Gastroenterology [address] [address] Araseli Wall APRN.INDUSTRIAL ELECTRICIAN [address] [facility] [place] [address] Elevated alkaline phosphatase leve 05/21/2025 2:00 PM EST Office Visit Cardiology [address] [place] [address] [place] [address] [facility] [place] [address] 6 month follow up documented as of this encounter Goals Goal Patient Goal Type Associated Problems Recent Progress Patient-Stated? Author Blood Pressure < 130/80 Blood Pressure 120/74( 025 10:15 PM EDT) No Sung Hartley MD documented as of this encounter Visit Diagnoses Not on filedocumented in this encounter Care Teams Biodiesel Plant Superintendent Relationship Specialty Start [place] [address] [place] [address] PCP - General Family Medicine 12/29/23 Jere Sales MD [address] [address] Referring Gastroenterology 12/05/20 Calin Gotti DO [address] [place] [address] Internal Medicine 10/16/23 documented as of this encounter
--- OUTSIDE RECORDS SUMMARY | 2024-12-07 12:27 | XMS_ITS | Encounter Summary ---
Author Organization [facility] Address [facility] [place] [address] Care Team Providers Care Bias Cutter Name Role Phone Jere Sales MD Unavailable [phone] Calin Gotti DO Unavailable [phone] Jose Antonio Meyers MD Primary Care Provider [phone] Source Comments In the event this information is protected by the Federal Confidentiality of Alcohol and Drug AbusePatient Records regulations: The Federal rules restrict any use of the information to criminally investigate or prosecute any alcohol or drug abuse patient.[facility] Encounter Details Date Type Department Care Team (Late st Contact Info) Description 08/28/2024 Get Medical Advice Pulmonary Medicine [address] [place] [address] Triston Riggs MD [address] [place] [address] Willie Harris. 1950 Social History Tobacco Use Types Packs/Day Years Used Date Smoking Tobacco: Never Smokeless Tobacco: Never Alcohol Use Standard Drinks/Week Comments Yes 0 (1 standard drink = 0.6 oz pure alcohol) socially, no drink since 06/2023 [facility] Utilities Answer Date Recorded In the [...] risk 5 12/11/2023 Data from: https://www.neighborhoodatlas.medicine.[facility].edu/. Last address used for calculation 2230 12/11/2023 [...] 09/01/2024 11:36 AM EDT Patient called regarding DIY Geniushart message below. She expressed that she has not heard anything back yet. documented in this encounter Plan of Treatment Upcoming Encounters Date Type Department Care Team (Late st Contact Info) Description 12/15/2024 11:15 AM EDT [place] [address] [place] [address] [place] [address] [place] [place] [id number] Follow-up 12/16/2024 12:30 PM EDT Office Visit Vascular Surgery 5700 [place] [address] Extremity cyanosis [R23.0] 12/16/2024 2:30 PM EDT Office Visit Vascular Surgery 57[address] [place] [address] Extremity cyanosis [R23.0] 12/16/2024 3:30 PM EDT Office Visit Vascular Surgery 57[address] [place] [address] Extremity cyanosis [R23.0] 12/22/2024 6:00 PM EDT [facility] Gastroenterology [address] [address] Araseli Wall, LETICIA.CHINESE HERBALIST 9500 [place] [address] Elevated alkaline phosphatase leve 05/21/2025 2:00 PM EST Office Visit Cardiology [address] [place] [address] [place] [address] [facility] [place] [address] 6 month follow up documented as of this encounter Goals Goal Patient Goal Type Associated Problems Recent Progress Patient-Stated? Author Blood Pressure < 130/80 Blood Pressure 120/74( 025 10:15 PM EDT) No Sung Hartley MD documented as of this encounter Visit Diagnoses Not on filedocumented in this encounter Care Teams Bias Cutter Relationship Specialty Start [place] [address] [facility] [place] [address] PCP - General Family Medicine 12/29/23 Jere Sales MD [address] [address] Referring Gastroenterology 12/05/20 Calin Gotti DO [address] [place] [address] Internal Medicine 10/16/23 documented as of this encounter
--- OUTSIDE RECORDS SUMMARY | 2024-12-07 12:27 | XMS_ITS | Clinical Summary ---
Author Organization [facility] Address [address] [place] [address] Care Team Providers Care Wafer Cleaner Name Role Phone Unavailable Primary Care Provider [...] 08/12 Chalazion of left upper eyelid 08/12/2024 Family History Medical History Relation Name Comments [...] NB OPHT [address] [place] [address] Arley Hamilton DO [address] [place] [address] 08/31/2025 1:05 PM EDT Office Visit [facility] [address] [place] [address] Bianca Bynum MD [address] [place] [address] Health Maintenance Due Date Last Done Comments CT Colonography 1950 FIT-DNA 1950 FIT 1950 FOBT 1950 Sigmoidoscopy 1950 Colonoscopy 04/28/2034 04/28/2024, 04/28/2024 Colorectal Cancer Screening 04/28/2034 Pneumococcal Vaccine: 65+ Years Completed 8, 11/26/2016 Influenza Vaccine Completed 05/27/2024, 05/09/[address] [place] [address] [employer] MED[employer]ARE ADVANTAGE
--- OUTSIDE RECORDS SUMMARY | 2024-12-07 12:27 | XMS_ITS | Clinical Summary ---
Author Organization [facility] Address [id number] [address] [place] [address] Care Team Providers Care Hide Handler Name Role Phone Unavailable Primary Care Provider [...]
--- OUTSIDE RECORDS SUMMARY | 2024-12-07 12:27 | XMS_ITS | Encounter Summary ---
Author Organization [facility] Address [address] [place] [address] Care Team Providers Care Landfill Grader Name Role Phone Jere Sales MD Unavailable [phone] Calin Gotti DO Unavailable [phone] Jose Antonio Meyers MD Primary Care Provider [phone] Source Comments In the event this information is protected by the Federal Confidentiality of Alcohol and Drug AbusePatient Records regulations: The Federal rules restrict any use of the information to criminally investigate or prosecute any alcohol or drug abuse patient.[facility] Reason for Referral * Outpatient Procedure (Routine) - New Request Specialty Diagnoses / Procedures Referred By Contac t Referred To Contact [facility] Diagnoses Cough, unspecified type Procedures NITRIC OXIDE, EXHALED NITRIC OXIDE GAS DETERMINATION Louise Douglas MD [facility] [place] [address] Phone: tel: fax: [facility] [address] [place] [address] Referral ID Status Reason Start Date Expiration Date Visits Requested Visits Authorized [id number] New Request Auto-Generat ed Referral 01/10/2024 02/08/2025 1 1 Encounter Details Date Type Department Care Team (Latest Contact Info) Description 01/10/2024 Transcribe Orders [facility] [address] [place] [address] Louise Douglas MD [address] [place] [address] Cough, unspecified type (Primary Dx) Social History Tobacco Use Types Packs/Day Years Used Date Smoking Tobacco: Never Smokeless Tobacco: Never [facility] Utilities Answer Date Recorded In the past 12 months has th e Lift, gas, oil, or water [employer] threatened to shut off services in your [...] lower risk 5 12/11/2023 Data from: https://www.neighborhoodatlas.medicine.[facility]/. Last address used for calculation [...] EDT [place] [address] [place] [address] [place] [address] [place] [address] Follow-up 12/16/2024 12:30 PM EDT Office Visit Vascular Surgery 5700 [place] [address] Extremity cyanosis [R23.0] 12/16/2024 2:30 PM EDT Office Visit Vascular Surgery 5700 [place] [address] Extremity cyanosis [R23.0] 12/16/2024 3:30 PM EDT Office Visit Vascular Surgery 5700 [place] [address] Extremity cyanosis [R23.0] 12/22/2024 6:00 PM EDT [facility] Gastroenterology [address] [address] Araseli Wall APRN.WILDLIFE BIOLOGY INTERNSHIP [address] [place] [address] Elevated alkaline phosphatase leve 05/21/2025 2:00 PM EST Office Visit Cardiology [address] [place] [address] [place] [address] [facility] [place] [address] 6 month follow up Scheduled Orders Name [...] any questions regarding this interpretation, please call [phone]. If you are unable to reach us at the number above, please feel free to contact [facility] at [phone]. Narrative 10/13/2024 3:26 PM EDT * * [...] and soft tissues: Unremarkable. Procedure Note Provider, [facility] [place] - 10/13/2024 * * *Final Report* * [...] any questions regarding this interpretation, please call [phone]. If you are unable to reach us at the number above, please feel free to contact [facility] at [phone]. us Louise Douglas MD RAD-PAMA Final Result documented in this encounter Visit Diagnoses Diagnosis Cough, unspecified type- Primary Cough, unspecified type documented in this encounter Care Teams Landfill Grader Relationship Specialty Start [place] [address] [place] [address] PCP - General Family Medicine 12/29/23 Jere Sales MD [address] [address] Referring Gastroenterology 12/05/20 Calin Gotti DO [address] [place] [address] Internal Medicine 10/16/23 documented as of this encounter
--- OUTSIDE RECORDS SUMMARY | 2024-12-07 12:27 | XMS_ITS | Encounter Summary ---
Author Organization [facility] Address [address] [place] [address] Care Team Providers Care Hydro Plant Site Manager Name Role Phone Jere Sales MD Unavailable [phone] Calin Gotti DO Unavailable [phone] Jose Antonio Meyers MD Primary Care Provider [phone] Source Comments In the event this information is protected by the Federal Confidentiality of Alcohol and Drug AbusePatient Records regulations: The Federal rules restrict any use of the information to criminally investigate or prosecute any alcohol or drug abuse patient.[facility] Encounter Details Date Type Department Care Team (Late st Contact Info) Description 01/20/2024 Get Medical Advice Thoracic Surgery [address] [place] [address] Cecilia Guadarrama APRN.DINING CAR WAITER/WAITRESS [address] [place] [address] Willie Harris Appt Feb 04, 2024 Social History Tobacco Use Types Packs/Day Years Used Date Smoking Tobacco: Never Smokeless Tobacco: Never Alcohol Use Standard Drinks/Week Comments Yes 0 (1 standard drink = 0.6 oz pure alcohol) socially, no drink since 06/2023 [facility] Utilities Answer Date Recorded In the [...] to sleep or slept in a senior care (including now)? No 11/21/2023 Area Deprivation Index Answer Date Hari rded National Score (1-100), lower number is lower ri sk 68 12/11/2023 State Score (1-10), lower number is lower risk 5 12/11/2023 Data from: https://www.neighborhoodatlas.medicine.[facility].edu/. Last address used for calculation 2230 [...] EDT [place] [address] [place] [address] [place] [address] [place] [address] Follow-up 12/16/2024 12:30 PM EDT Office Visit Vascular Surgery 57[address] [facility] [place] [address] Extremity cyanosis [R23.0] 12/16/2024 2:30 PM EDT Office Visit Vascular Surgery 57[address] [facility] [place] [address] Extremity cyanosis [R23.0] 12/16/2024 3:30 PM EDT Office Visit Vascular Surgery 5700 [place] [address] Extremity cyanosis [R23.0] 12/22/2024 6:00 PM EDT [facility] Gastroenterology [address] [address] Araseli Wall APRN.DINING CAR WAITER/WAITRESS [address] [facility] [address] Elevated alkaline phosphatase leve 05/21/2025 2:00 PM EST Office Visit Cardiology [address] [place] [address] [place] [address] [facility] [place] [address] 6 month follow up documented as of this encounter Goals Goal Patient Goal Type Associated Problems Recent Progress Patient-Stated? Author Blood Pressure < 130/80 Blood Pressure 120/74( 025 10:15 PM EDT) No Sung Hartley MD documented as of this encounter Visit Diagnoses Not on filedocumented in this encounter Care Teams Hydro Plant Site Manager Relationship Specialty Start [place] [address] [place] [address] PCP - General Family Medicine 12/29/23 Jere Sales MD [address] [address] Referring Gastroenterology 12/05/20 Calin Gotti DO [address] [place] [address] Internal Medicine 10/16/23 documented as of this encounter
--- OUTSIDE RECORDS SUMMARY | 2024-12-07 12:27 | XMS_ITS | Encounter Summary ---
Author Organization [facility] Address [address] [place] [address] Care Team Providers Care Line Painting Machine Operator Name Role Phone Jere Sales MD Unavailable [phone] Calin Gotti DO Unavailable [phone] Jose Antonio Meyers MD Primary Care Provider [phone] Source Comments In the event this information is protected by the Federal Confidentiality of Alcohol and Drug AbusePatient Records regulations: The Federal rules restrict any use of the information to criminally investigate or prosecute any alcohol or drug abuse patient.[facility] Encounter Details Date Type Department Care Team (Late st Contact Info) Description 10/07/2024 Get Medical Advice Pulmonary Medicine [address] [place], [place] [address] Katerina Pascual PA-C 9500 [place] [address] Willie Harris 1950 Social History Tobacco Use Types Packs/Day Years Used Date Smoking Tobacco: Never Smokeless Tobacco: Never Alcohol Use Standard Drinks/Week Comments Yes 0 (1 standard drink = 0.6 oz pure alcohol) socially, no drink since 06/2023 [facility] Utilities Answer Date Recorded In the [...] is lower risk 5 12/11/2023 Data from: https://www.neighborhoodatlas.medicine.[facility].edu/. Last address used for calculation 2230 12/11/2023 [...] EDT [place] [address] [place] [address] [place] [address] [place] [address] Follow-up 12/16/2024 12:30 PM EDT Office Visit Vascular Surgery 5700 [facility] [place] [address] Extremity cyanosis [R23.0] 12/16/2024 2:30 PM EDT Office Visit Vascular Surgery 57[address] [facility] [place] [address] Extremity cyanosis [R23.0] 12/16/2024 3:30 PM EDT Office Visit Vascular Surgery 5700 [place] [address] Extremity cyanosis [R23.0] 12/22/2024 6:00 PM EDT [facility] Gastroenterology [address] [address] Araseli Wall APRN.OFFAL TRIMMER [address] [facility] [address] Elevated alkaline phosphatase leve 05/21/2025 2:00 PM EST Office Visit Cardiology [address] [place] [address] [place] [address] [facility] [place] [address] 6 month follow up documented as of this encounter Goals Goal Patient Goal Type Associated Problems Recent Progress Patient-Stated? Author Blood Pressure < 130/80 Blood Pressure 120/74( 025 10:15 PM EDT) No Sung Hartley MD documented as of this encounter Visit Diagnoses Not on filedocumented in this encounter Care Teams Line Painting Machine Operator Relationship Specialty Start [place] [address] [place] [address] PCP - General Family Medicine 12/29/23 Jere Sales MD [address] [address] Referring Gastroenterology 12/05/20 Calin Gotti DO [address] [place] [address] Internal Medicine 10/16/23 documented as of this encounter
--- OUTSIDE RECORDS SUMMARY | 2024-12-07 12:27 | XMS_ITS | Encounter Summary ---
Author Organization [facility] Address [address] [place] [address] Care Team Providers Care Roofing Applicator Name Role Phone Jere Sales MD Unavailable [phone] Calin Gotti DO Unavailable [phone] Jose Antonio Meyers MD Primary Care Provider [phone] Source Comments In the event this information is protected by the Federal Confidentiality of Alcohol and Drug AbusePatient Records regulations: The Federal rules restrict any use of the information to criminally investigate or prosecute any alcohol or drug abuse patient.[facility] Encounter Details Date Type Department Care Team (Late st Contact Info) Description 09/18/2024 Patient Msg Gastroenterology [address] [address] Provider, [facility] Procedure Instructions for EGD scheduled [...] is lower risk 5 12/11/2023 Data from: https://www.neighborhoodatlas.medicine.[facility].edu/. Last address used for calculation [...] EDT [place] [address] [place] [address] [place] [address] [place] [address] Follow-up 12/16/2024 12:30 PM EDT Office Visit Vascular Surgery 5700 [place] [address] Extremity cyanosis [R23.0] 12/16/2024 2:30 PM EDT Office Visit Vascular Surgery 5700 [facility] [place] [address] Extremity cyanosis [R23.0] 12/16/2024 3:30 PM EDT Office Visit Vascular Surgery 5700 [place] [address] Extremity cyanosis [R23.0] 12/22/2024 6:00 PM EDT [facility] Gastroenterology [address] [address] Araseli Wall APRN.BUSINESS CHANGE MANAGER [address] [facility] [place] [address] Elevated alkaline phosphatase leve 05/21/2025 2:00 PM EST Office Visit Cardiology [address] [place] [address] [place] [address] [facility] [place] [address] 6 month follow up documented as of this encounter Goals Goal Patient Goal Type Associated Problems Recent Progress Patient-Stated? Author Blood Pressure < 130/80 Blood Pressure 120/74( 025 10:15 PM EDT) No Sung Hartley MD documented as of this encounter Visit Diagnoses Not on filedocumented in this encounter Care Teams Roofing Applicator Relationship Specialty Start [place] [address] [facility] [place] [address] PCP - General Family Medicine 12/29/23 Jere Sales MD [address] [address] Referring Gastroenterology 12/05/20 Calin Gotti DO [address] [place] [address] Internal Medicine 10/16/23 documented as of this encounter
--- OUTSIDE RECORDS SUMMARY | 2024-12-07 12:27 | XMS_ITS | Encounter Summary ---
Author Organization [facility] Address [facility] [place] [address] Care Team Providers Care Talent Acquisition Lead Name Role Phone Jere Sales MD Unavailable [phone] Calin Gotti DO Unavailable [phone] Jose Antonio Meyers MD Primary Care Provider [phone] Source Comments In the event this information is protected by the Federal Confidentiality of Alcohol and Drug AbusePatient Records regulations: The Federal rules restrict any use of the information to criminally investigate or prosecute any alcohol or drug abuse patient.[facility] Encounter Details Date Type Department Care Team (Late st Contact Info) Description 08/25/2024 Get Medical Advice Pulmonary Medicine [address] [place] [address] Triston Riggs MD [address] [place] [address] Willie Harris . 1950 Social History Tobacco Use Types Packs/Day Years Used Date Smoking Tobacco: Never Smokeless Tobacco: Never Alcohol Use Standard Drinks/Week Comments Yes 0 (1 standard drink = 0.6 oz pure alcohol) socially, no drink since 06/2023 [facility] Utilities Answer Date Recorded In [...] is lower risk 5 12/11/2023 Data from: https://www.neighborhoodatlas.medicine.[facility].edu/. Last address used for calculation 2230 [...] EDT [place] [address] [place] [address] [place] [address] [place] [address] Follow-up 12/16/2024 12:30 PM EDT Office Visit Vascular Surgery [address] [facility] [place] [address] Extremity cyanosis [R23.0] 12/16/2024 2:30 PM EDT Office Visit Vascular Surgery [address] [facility] [place] [address] Extremity cyanosis [R23.0] 12/16/2024 3:30 PM EDT Office Visit Vascular Surgery 5700 [place] [address] Extremity cyanosis [R23.0] 12/22/2024 6:00 PM EDT [facility] Gastroenterology [address] [address] Araseli Wall APRN.TELE RN [address] [facility] [address] Elevated alkaline phosphatase leve 05/21/2025 2:00 PM EST Office Visit Cardiology [address] [place] [address] [place] [address] [facility] [place] [address] 6 month follow up documented as of this encounter Goals Goal Patient Goal Type Associated Problems Recent Progress Patient-Stated? Author Blood Pressure < 130/80 Blood Pressure 120/74( 025 10:15 PM EDT) No Sung Hartley MD documented as of this encounter Visit Diagnoses Not on filedocumented in this encounter Care Teams Talent Acquisition Lead Relationship Specialty Start [place] [address] [place] [address] PCP - General Family Medicine 12/29/23 Jere Sales MD [address] [address] Referring Gastroenterology 12/05/20 Calin Gotti DO [address] [place] [address] Internal Medicine 10/16/23 documented as of this encounter
--- OUTSIDE RECORDS SUMMARY | 2024-12-07 12:27 | XMS_ITS | Encounter Summary ---
Author Organization [facility] Address [address] [place] [address] Care Team Providers Care Molder Helper Name Role Phone Jere Sales MD Unavailable [phone] Calin Gotti DO Unavailable [phone] Jose Antonio Meyers MD Primary Care Provider [phone] Source Comments In the event this information is protected by the Federal Confidentiality of Alcohol and Drug AbusePatient Records regulations: The Federal rules restrict any use of the information to criminally investigate or prosecute any alcohol or drug abuse patient.[facility] Encounter Details Date Type Department Care Team (Latest Contact Info) Description 01/07/2024 Transcribe Orders Respiratory [place] [address] [place] [address] Louise Douglas MD [address] [place], [place] [id number] Chronic bronchitis, unspecified chronic bronchitis type (HCC) (Primary Dx) Social History Tobacco Use Types Packs/Day Years Used Date Smoking Tobacco: Never Smokeless Tobacco: Never [facility] Utilities Answer Date Recorded In [...] EDT [place] [address] [facility] [place] [address] [place] [address] [place] [address] Follow-up 12/16/2024 12:30 PM EDT Office Visit Vascular Surgery 57[address] [place] [address] Extremity cyanosis [R23.0] 12/16/2024 2:30 PM EDT Office Visit Vascular Surgery [address] [place] [address] Extremity cyanosis [R23.0] 12/16/2024 3:30 PM EDT Office Visit Vascular Surgery [address] [place] [address] Extremity cyanosis [R23.0] 12/22/2024 6:00 PM EDT [facility] Gastroenterology [address] [place] [id number] Araseli Wall APRN.COLOR WORKER [address] [place] [address] Elevated alkaline phosphatase leve 05/21/2025 2:00 PM EST Office Visit Cardiology [address] [place] [address] [place] [address] [facility] [place] [address] 6 month follow up documented as of [...] noted slightly increased. Right-sided Pleurx catheter present. Brand Manager: PSCB Transcribe Date/Time: Mar 19 2024 4:42P [...] and soft tissues: Unremarkable. Procedure Note Provider, [facility] [place] - 03/19/2024 * * *Final Report* * [...] noted slightly increased. Right-sided Pleurx catheter present. Brand Manager: PSCB Transcribe Date/Time: Mar 19 2024 4:42P [...] (HCC) documented in this encounter Care Teams Molder Helper Relationship Specialty Start [place] [address] [place] [address] PCP - General Family Medicine 12/29/23 Jere Sales MD [address] [address] Referring Gastroenterology 12/05/20 Calin Gotti DO [address] [place] [address] Internal Medicine 10/16/23 documented as of this encounter
--- OUTSIDE RECORDS SUMMARY | 2024-12-07 12:27 | XMS_ITS | Clinical Summary ---
Author Organization [facility] Address [address] [place] [address] Care Team Providers Care Oyster Planter Name Role Phone Dawit Lorenz DO Primary Care Provider [phone] Dawit Lorenz DO Unavailable [phone] Karthik Calloway MD Unavailable Unavail able Allergies [...] every morning . Active vit A-vit C-vit L-zmse-qbhkqt 7,160-113-100 hdti-sg-ixso Tab Take 1 tablet by mouth every [...] for , 07/05/16 @ 130pm at our [facility] office. S/P total knee arthroplasty 06/25/2016 Osteoarthritis [...] 02/03/2018, 11/26/2016 Medical Devices Implanted Type Area Engine Emission Technician Device Identifier Shelf Expiration Date Model / Serial / Lot Cement 1 X 40 [place]os Bone Single - [id number] Implanted:Qty: 2 on 08/23/2014 by Karthik Calloway MD at [facility] Cement Left: Knee Anh 01/14/2019 00-1112-140 -01 / / [id number] Stem Short Cemented Persona - [id number] Implanted:Qty: 1 on 08/23/2014 by Karthik Calloway MD at [facility] ANH HAK 09/23/2017 42-5570-001 -14 / / [id number] Stem Sz F Tib 5deg Nonpor Lt Persona - [id number] Implanted:Qty: 1 on 08/23/2014 by Karthik Calloway MD at [facility] ANH HAK 03/25/2024 42-5320-075 -01 / / [id number] Femoral Sz9 Lt Nrw Ps Cmt Ccr Persona - [id number] Implanted:Qty: 1 on 08/23/2014 by Karthik Calloway MD at [facility] ANH HAK 12/23/2022 42-5000-066 -01 / / [id number] Patella 32mm All Poly Persona - [id number] Implanted:Qty: 1 on 08/23/2014 [facility] 02/23/2022 42-5400-000 -32 / / [id number] Articular Surf Ef 6-9 14mm Lt Ps Vivacit-E Persona - [id number] Implanted:Qty: 1 on 08/23/2014 by [facility] 09/23/2017 42-5124-007 -14 / / [id number] Simplex Hv With Gentamicin Cement Implanted:Qty: 2 on 06/25/2016 by Karthik Calloway MD at [facility] Right: Knee [employer]ICA 01/14/2018 6195-1-001 / / [id number] Stem Sz F Tib 5deg Nonpor Rt Persona - [id number] Implanted:Qty: 1 on 06/25/2016 by Karthik Calloway MD at [facility] Right: Knee ANH K 05/16/2026 42-5320-075 -02 / / [id number] Femoral Sz9 Rt Nrw Ps Cmt Ccr Persona - [id number] Implanted:Qty: 1 on 06/25/2016 by Karthik Calloway MD at [facility] Right: Knee ANH K 02/14/2026 42-5000-066 -02 / / [id number] Stem Short Cemented Persona - [id number] Implanted:Qty: 1 on 06/25/2016 by Karthik Calloway MD at [facility] Right: Knee ANH K 06/16/2026 42-5570-001 -14 / / [id number] Patella 32mm All Poly Vivacit-E - [id number] Implanted:Qty: 1 on 06/25/2016 by Karthik Calloway MD at [facility] Right: Knee ANH HAK 04/16/2021 42-5402-000 -32 / / [id number] Articular Surf 14mm 6-9ef Rt Cps Ve Persona - [id number] Implanted:Qty: 1 on 06/25/2016 by Karthik Calloway MD at [facility] Right: Knee ANH HAK 12/14/2020 42-5226-007 -14 / / [id number] Explanted Type Area Engine Emission Technician Device Identifier Shelf Expiration Date Model / Serial / Lot Headed Screw Explanted:Qty: 4 on 08/23/2014 by Karthik Calloway MD at [facility] Left: Knee Anh 08/14/2024 5791-41 / / [id number] 2.5mm Female Hex Screw Explanted:Qty: 1 on 08/23/2014 by Karthik Calloway MD at [facility] Left: Knee Anh 06/16/2024 42-5099-025 -25 / / [id number] Headed Screw Explanted:Qty: 1 on 08/23/2014 by Karthik Calloway MD at [facility] Left: Knee Anh 07/17/2024 / / Insurance [employer] MEDICARE PLAN (PPO) Advance Directives For more information, please contact: [phone] * Full Code (Latest Code Status on File) Date Activated Date Inactivated Comments 06/25/2016 1:54 PM 06/29/2016 3:41 PM * Full Code Date Activated Date Inactivated Comments 08/23/2014 6:45 AM 08/25/2014 7:58 PM Care Teams Oyster Planter Relationship Specialty Start Date End Date Dawit Lorenz DO [address] [place] [address] PCP - General Internal Medicine 06/29/14 Dawit Lorenz DO [address] [place] [address] Internal Medicine 06/29/14 Karthik Calloway MD [address] [place] [address] Consulting Physician Orthopedic Surgery 01/28/17
--- OUTSIDE RECORDS SUMMARY | 2024-12-07 12:28 | XMS_ITS | Encounter Summary ---
Author Organization [facility] Address [address] [place] [address] Care Team Providers Care E M Assembler Name Role Phone Jere Sales MD Unavailable [phone] Calin Gotti DO Unavailable [phone] Jose Antonio Meyers MD Primary Care Provider [phone] Source Comments In the event this information is protected by the Federal Confidentiality of Alcohol and Drug AbusePatient Records regulations: The Federal rules restrict any use of the information to criminally investigate or prosecute any alcohol or drug abuse patient.[facility] Encounter Details Date Type Department Care Team (Late st Contact Info) Description 10/19/2024 Get Medical Advice Pulmonary Medicine [address] [place], [place] [id number] Katreina Pascual PA-C [address] [place] [address] Willie Harris 1950 Social History Tobacco Use Types Packs/Day Years Used Date Smoking Tobacco: Never Smokeless Tobacco: Never Alcohol Use Standard Drinks/Week Comments Yes 0 (1 standard drink = 0.6 oz pure alcohol) socially, no drink since 06/2023 [facility] Utilities Answer Date Recorded In the [...] is lower risk 5 12/11/2023 Data from: https://www.neighborhoodatlas.medicine.[facility].edu/. Last address used for calculation [address] [...] EDT [place] [address] [place] [address] [place] [address] [place] [address] Follow-up 12/16/2024 12:30 PM EDT Office Visit Vascular Surgery [address] [facility] [address] Extremity cyanosis [R23.0] 12/16/2024 2:30 PM EDT Office Visit Vascular Surgery [address] [facility] [address] Extremity cyanosis [R23.0] 12/16/2024 3:30 PM EDT Office Visit Vascular Surgery 57[address] [place] [address] Extremity cyanosis [R23.0] 12/22/2024 6:00 PM EDT [facility] Gastroenterology [address] [address] Araseli Wall APRN.SUPPLY CHAIN ASSISTANT [address] [facility] [address] Elevated alkaline phosphatase leve 05/21/2025 2:00 PM EST Office Visit Cardiology [address] [place] [address] [place] [address] [facility] [place] [address] 6 month follow up documented as of this encounter Goals Goal Patient Goal Type Associated Problems Recent Progress Patient-Stated? Author Blood Pressure < 130/80 Blood Pressure 120/74( 025 10:15 PM EDT) No Sung Hartley MD documented as of this encounter Visit Diagnoses Not on filedocumented in this encounter Care Teams E M Assembler Relationship Specialty Start [place] [address] [place] [address] PCP - General Family Medicine 12/29/23 Jere Sales MD [address] [address] Referring Gastroenterology 12/05/20 Calin Gotti DO [address] [place] [address] Internal Medicine 10/16/23 documented as of this encounter
--- OUTSIDE RECORDS SUMMARY | 2024-12-07 12:28 | XMS_ITS | Encounter Summary ---
Author Organization [facility] Address [address] [place] [address] Care Team Providers Care Nursing Services Manager Name Role Phone Jere Sales MD Unavailable [phone] Calin Gotti DO Unavailable [phone] Jose Antonio Meyers MD Primary Care Provider [phone] Source Comments In the event this information is protected by the Federal Confidentiality of Alcohol and Drug AbusePatient Records regulations: The Federal rules restrict any use of the information to criminally investigate or prosecute any alcohol or drug abuse patient.[facility] Encounter Details Date Type Department Care Team (Late st Contact Info) Description 11/24/2024 Results Follow-Up Cardiology [address] [facility] [place] [address] [place] [address] [facility] [place], [place] [id number] Social History Tobacco Use Types Packs/Day Years Used Date Smoking Tobacco: Never Smokeless Tobacco: Never Alcohol Use Standard Drinks/Week Comments Yes 0 (1 standard drink = 0.6 oz pure alcohol) socially, no drink since 06/2023 [facility] Utilities Answer Date Recorded In the [...] place to sleep or slept in a group home (including now)? No 11/21/2023 Area Deprivation Index Answer Date Hari rded National Score (1-100), lower number is lower ri sk 68 12/11/2023 State Score (1-10), lower number is lower risk 5 12/11/2023 Data from: https://www.neighborhoodatlas.medicine.[facility].edu/. Last address used for calculation 2230 12/11/2023 [...] EDT [place] [address] [place] [address] [place] [address] [place] [address] Follow-up 12/16/2024 12:30 PM EDT Office Visit Vascular Surgery 57[address] [facility] [place] [address] Extremity cyanosis [R23.0] 12/16/2024 2:30 PM EDT Office Visit Vascular Surgery 5700 [facility] [place] [address] Extremity cyanosis [R23.0] 12/16/2024 3:30 PM EDT Office Visit Vascular Surgery [address] [facility] [place] [address] Extremity cyanosis [R23.0] 12/22/2024 6:00 PM EDT [facility] Gastroenterology [address] [address] Araseli Wall APRN.ACCOUNTS RECEIVABLE ANALYST [address] [place] [address] Elevated alkaline phosphatase leve 05/21/2025 2:00 PM EST Office Visit Cardiology [address] [place] [address] [place] [address] [place] [address] 6 month follow up documented as of this encounter Goals Goal Patient Goal Type Associated Problems Recent Progress Patient-Stated? Author Blood Pressure < 130/80 Blood Pressure 120/74( 025 10:15 PM EDT) No Sung Hartley MD documented as of this encounter Visit Diagnoses Not on filedocumented in this encounter Care Teams Nursing Services Manager Relationship Specialty Start [place] [address] [facility] [address] PCP - General Family Medicine 12/29/23 Jere Sales MD [address] [address] Referring Gastroenterology 12/05/20 Calin Gotti DO [address] [place] [address] Internal Medicine 10/16/23 documented as of this encounter
--- OUTSIDE RECORDS SUMMARY | 2024-12-07 12:28 | XMS_ITS | Encounter Summary ---
Author Organization [facility] Address [address] [place] [address] Care Team Providers Care Hospital Pharmacy Technician Name Role Phone Jere Sales MD Unavailable [phone] Calin Gotti DO Unavailable Jose Antonio Meyers MD Primary Care Provider [phone] Source Comments In the event this information is protected by the Federal Confidentiality of Alcohol and Drug AbusePatient Records regulations: The Federal rules restrict any use of the information to criminally investigate or prosecute any alcohol or drug abuse patient.[facility] Reason for Visit * Reason Comments Received Outside Medical Records Encounter Details Date Type Department Care Team (Late st Contact Info) Description 11/23/2024 Telephone Thoracic Clinic [address] [place] [id number] Ronaldo Ramos MD, PhD [address] [facility] [place] [id number] Received Outside Medical Records Social History Tobacco Use Types Packs/Day Years Used Date Smoking Tobacco: Never Smokeless Tobacco: Never Alcohol Use Standard Drinks/Week Comments Yes 0 (1 standard drink = 0.6 oz pure alcohol) socially, no drink since 06/2023 [facility] Utilities Answer Date Recorded In [...] Date Author No 12/26/2023 4:30 PM EDT Orlnado Welsh RN documented in this encounter Miscellaneous Notes * Telephone Encounter - Lora Wood - 11/23/2024 1:48 PM EDT Received missed visit notes 11/20/24 and 11/10/24 records scanned in [facility] natalee Loya asst documented in this encounter Plan of Treatment Upcoming Encounters Date Type Department Care Team (Late st Contact Info) Description 12/15/2024 11:15 AM EDT [place] [address] [place] [address] [place] [address] [address] [place], [place] [address] Follow-up 12/16/2024 12:30 PM EDT Office Visit Vascular Surgery [address] [place] [address] Extremity cyanosis [R23.0] 12/16/2024 2:30 PM EDT Office Visit Vascular Surgery [address] [place] [address] Extremity cyanosis [R23.0] 12/16/2024 3:30 PM EDT Office Visit Vascular Surgery [address] [place] [address] Extremity cyanosis [R23.0] 12/22/2024 6:00 PM EDT [facility] Gastroenterology [address] [address] Araseli Wall APRN.CONTRACT ADMINISTRATION COORDINATOR [address] [place] [address] Elevated alkaline phosphatase leve 05/21/2025 2:00 PM EST Office Visit Cardiology [address] [place] [address] [place] [address] [facility] [place] [address] 6 month follow up documented as of this encounter Goals Goal Patient Goal Type Associated Problems Recent Progress Patient-Stated? Author Blood Pressure < 130/80 Blood Pressure 120/74( 025 10:15 PM EDT) No Sung Hartley MD documented as of this encounter Visit Diagnoses Not on filedocumented in this encounter Care Teams Hospital Pharmacy Technician Relationship Specialty Start [place] [address] [facility] [place] [address] PCP - General Family Medicine 12/29/23 Jere Sales MD [address] [address] Referring Gastroenterology 12/05/20 Calin Gotti DO [address] [place] [address] Internal Medicine 10/16/23 documented as of this encounter
--- OUTSIDE RECORDS SUMMARY | 2024-12-07 12:28 | XMS_ITS | Encounter Summary ---
Author Organization [facility] Address [address] [place] [address] Care Team Providers Care Crew Caller Name Role Phone Jere Sales MD Unavailable [phone] Calin Gotti DO Unavailable [phone] Jose Antonio Meyers MD Primary Care Provider [phone] Source Comments In the event this information is protected by the Federal Confidentiality of Alcohol and Drug AbusePatient Records regulations: The Federal rules restrict any use of the information to criminally investigate or prosecute any alcohol or drug abuse patient.[facility] Encounter Details Date Type Department Care Team (Late st Contact Info) Description 10/15/2024 Results Follow-Up Gastroenterology [address] [address] Xiomara Santoyo APRN.[place] [address] [place] [address] Social History Tobacco Use Types Packs/Day Years Used Date Smoking Tobacco: Never Smokeless Tobacco: Never Alcohol Use Standard Drinks/Week Comments Yes 0 (1 standard drink = 0.6 oz pure alcohol) socially, no drink since 06/2023 [facility] Utilities Answer Date Recorded In the [...] EDT [place] [address] [place] [address] [place] [address] [place] [address] Follow-up 12/16/2024 12:30 PM EDT Office Visit Vascular Surgery 57[address] [facility] [place] [address] Extremity cyanosis [R23.0] 12/16/2024 2:30 PM EDT Office Visit Vascular Surgery 5700 [facility] [place] [address] Extremity cyanosis [R23.0] 12/16/2024 3:30 PM EDT Office Visit Vascular Surgery [address] [place] [address] Extremity cyanosis [R23.0] 12/22/2024 6:00 PM EDT [facility] Gastroenterology [address] [address] Araseli Wall APRN.PRODUCE SPECIALIST [address] [place] [address] Elevated alkaline phosphatase leve 05/21/2025 2:00 PM EST Office Visit Cardiology [address] [place] [address] [place] [address] [facility] [place] [address] 6 month follow up documented as of this encounter Goals Goal Patient Goal Type Associated Problems Recent Progress Patient-Stated? Author Blood Pressure < 130/80 Blood Pressure 120/74( 025 10:15 PM EDT) No Sung Hartley MD documented as of this encounter Visit Diagnoses Not on filedocumented in this encounter Care Teams Crew Caller Relationship Specialty Start [place] [address] [facility] [place] [address] PCP - General Family Medicine 12/29/23 Jere Sales MD [address] [address] Referring Gastroenterology 12/05/20 Calin Gotti DO [address] [place] [address] Internal Medicine 10/16/23 documented as of this encounter
--- OUTSIDE RECORDS SUMMARY | 2024-12-07 12:28 | XMS_ITS | Encounter Summary ---
Author Organization [facility] Address [address] [place] [address] Care Team Providers Care Coil Strapper Name Role Phone Jere Sales MD Unavailable [phone] Calin Gotti DO Unavailable [phone] Jose Antonio Meyers MD Primary Care Provider [phone] Source Comments In the event this information is protected by the Federal Confidentiality of Alcohol and Drug AbusePatient Records regulations: The Federal rules restrict any use of the information to criminally investigate or prosecute any alcohol or drug abuse patient.[facility] Encounter Details Date Type Department Care Team (Late st Contact Info) Description 07/07/2024 Get Medical Advice Gastroenterology [address] [id number] Sue Terrell MD [address]00 [place] [address] Willie Kimberly Social History Tobacco [...] is lower risk 5 12/11/2023 Data from: https://www.neighborhoodatlas.medicine.[facility].edu/. Last address used for calculation 2230 [...] EDT [place] [address] [place] [address] [place] [address] [place] [address] Follow-up 12/16/2024 12:30 PM EDT Office Visit Vascular Surgery 5700 [facility] [place] [address] Extremity cyanosis [R23.0] 12/16/2024 2:30 PM EDT Office Visit Vascular Surgery 5700 [place] [address] Extremity cyanosis [R23.0] 12/16/2024 3:30 PM EDT Office Visit Vascular Surgery 57[address] [facility] [place] [address] Extremity cyanosis [R23.0] 12/22/2024 6:00 PM EDT [facility] Gastroenterology [address] [address] Araseli Wall APRN.CHEMICAL INSPECTOR [address] [place] [address] Elevated alkaline phosphatase leve 05/21/2025 2:00 PM EST Office Visit Cardiology [address] [place] [address] [place] [address] [facility] [place] [address] 6 month follow up documented as of this encounter Goals Goal Patient Goal Type Associated Problems Recent Progress Patient-Stated? Author Blood Pressure < 130/80 Blood Pressure 120/74( 025 10:15 PM EDT) No Sung Hartley MD documented as of this encounter Visit Diagnoses Not on filedocumented in this encounter Care Teams Coil Strapper Relationship Specialty [place] [address] [facility] [place] [address] PCP - General Family Medicine 12/29/23 Jere Sales MD [address] [address] Referring Gastroenterology 12/05/20 Calin Gotti DO [address] [place] [address] Internal Medicine 10/16/23 documented as of this encounter
--- OUTSIDE RECORDS SUMMARY | 2024-12-07 12:28 | XMS_ITS | Encounter Summary ---
Author Organization [facility] Address [address] [place] [address] Care Team Providers Care Dam Operator Name Role Phone Jere Sales MD Unavailable [phone] Calin Gotti DO Unavailable [phone] Jose Antonio Meyers MD Primary Care Provider [phone] Source Comments In the event this information is protected by the Federal Confidentiality of Alcohol and Drug AbusePatient Records regulations: The Federal rules restrict any use of the information to criminally investigate or prosecute any alcohol or drug abuse patient.[facility] Reason for Visit * Reason Comments Refill Request Encounter Details Date Type Department Care Team (Late st Contact Info) Description 11/25/2024 [place] [address] [facility] [place] [place] [id number] [place] [address] [place] [address] Refill Request Social History Tobacco Use Types Packs/Day Years Used Date Smoking Tobacco: Never Smokeless Tobacco: Never Alcohol Use Standard Drinks/Week Comments Yes 0 (1 standard drink = 0.6 oz pure alcohol) socially, no drink since 06/2023 [facility] Utilities Answer Date Recorded In the past 12 months has th e [employer], gas, oil, or water company threatened to [...] is lower risk 5 12/11/2023 Data from: https://www.neighborhoodatlas.medicine.[facility].edu/. Last address used for calculation [...] EDT [place] [address] [place] [address] [place] [address] [place] [address] Follow-up 12/16/2024 12:30 PM EDT Office Visit Vascular Surgery [address] [place] [address] Extremity cyanosis [R23.0] 12/16/2024 2:30 PM EDT Office Visit Vascular Surgery 5700 [facility] [place] [address] Extremity cyanosis [R23.0] 12/16/2024 3:30 PM EDT Office Visit Vascular Surgery 5700 [place] [address] Extremity cyanosis [R23.0] 12/22/2024 6:00 PM EDT [facility] Gastroenterology [address] [address] Araseli Wall APRN.SOLAR ENERGY CONSULTANT AND DESIGNER [address] [place] [address] Elevated alkaline phosphatase leve 05/21/2025 2:00 PM EST Office Visit Cardiology [address] [place] [address] [place] [address] [facility] [place] [address] 6 month follow up documented as of this encounter Goals Goal Patient Goal Type Associated Problems Recent Progress Patient-Stated? Author Blood Pressure < 130/80 Blood Pressure 120/74( 025 10:15 PM EDT) No Sung Hartley MD documented as of this encounter Visit Diagnoses Diagnosis Cramp and spasm documented in this encounter Care Teams Dam Operator Relationship Specialty Start [place] [address] [facility] [place] [address] PCP - General Family Medicine 12/29/23 Jere Sales MD [address] [address] Referring Gastroenterology 12/05/20 Calin Gotti DO [address] [place] [address] Internal Medicine 10/16/23 documented as of this encounter
--- OUTSIDE RECORDS SUMMARY | 2024-12-07 12:28 | XMS_ITS | Encounter Summary ---
Author Organization [facility] Address [address] [place] [address] Care Team Providers Care New Car Get Ready Mechanic Name Role Phone Jere Sales MD Unavailable [phone] Calin Gotti DO Unavailable [phone] Jose Antonio Meyers MD Primary Care Provider [phone] Source Comments In the event this information is protected by the Federal Confidentiality of Alcohol and Drug AbusePatient Records regulations: The Federal rules restrict any use of the information to criminally investigate or prosecute any alcohol or drug abuse patient.[facility] Encounter Details Date Type Department Care Team (Late st Contact Info) Description 10/15/2024 Results Follow-Up Gastroenterology [address] [address] Xiomara Santoyo APRN.[place] [id number] [place] [address] Social History Tobacco Use Types Packs/Day Years Used Date Smoking Tobacco: Never Smokeless Tobacco: Never Alcohol Use Standard Drinks/Week Comments Yes 0 (1 standard drink = 0.6 oz pure alcohol) socially, no drink since 06/2023 [facility] Utilities Answer Date Recorded In [...] is lower risk 5 12/11/2023 Data from: https://www.neighborhoodatlas.medicine[facility].edu/. Last address used for calculation 2230 [...] EDT [place] [address] [place] [address] [place] [address] [place] [address] Follow-up 12/16/2024 12:30 PM EDT Office Visit Vascular Surgery 5700 [facility] [place] [address] Extremity cyanosis [R23.0] 12/16/2024 2:30 PM EDT Office Visit Vascular Surgery 5700 [facility] [place] [address] Extremity cyanosis [R23.0] 12/16/2024 3:30 PM EDT Office Visit [facility]ascular Surgery [address] [facility] [place] [address] Extremity cyanosis [R23.0] 12/22/2024 6:00 PM EDT [facility] Gastroenterology [address] [address] Araseli Wall APRN.ATTENDING PATHOLOGIST [address] [place] [address] Elevated alkaline phosphatase leve 05/21/2025 2:00 PM EST Office Visit Cardiology [address] [place] [address] [place] [address] [place] [address] 6 month follow up documented as of this encounter Goals Goal Patient Goal Type Associated Problems Recent Progress Patient-Stated? Author Blood Pressure < 130/80 Blood Pressure 120/74( 025 10:15 PM EDT) No Sung Hartley MD documented as of this encounter Visit Diagnoses Not on filedocumented in this encounter Care Teams New Car Get Ready Mechanic Relationship Specialty Start [place] [address] [facility] [place] [address] PCP - General Family Medicine 12/29/23 Jere Sales MD [address] [address] Referring Gastroenterology 12/05/20 Calin Gotti DO [address] [place] [address] Internal Medicine 10/16/23 documented as of this encounter
--- OUTSIDE RECORDS SUMMARY | 2024-12-07 12:28 | XMS_ITS | Encounter Summary ---
Author Organization [facility] Address [address] [place] [address] Care Team Providers Care Supervisor Word Processing Name Role Phone Jere Sales MD Unavailable [phone] Calin Gotti DO Unavailable [phone] Jose Antonio Meyers MD Primary Care Provider [phone] Source Comments In the event this information is protected by the Federal Confidentiality of Alcohol and Drug AbusePatient Records regulations: The Federal rules restrict any use of the information to criminally investigate or prosecute any alcohol or drug abuse patient.[facility] Reason for Visit * Reason Comments Radiology XR Encounter Details Date Type Department Care Team (Late st Contact Info) Description 08/13/2024 Radiology Radiology [address] [place], [place] [address] Joan Hillman, RT(R) Radiology XR Social History Tobacco Use Types Packs/Day Years Used Date Smoking Tobacco: Never Smokeless Tobacco: Never Alcohol Use Standard Drinks/Week Comments Yes 0 (1 standard drink = 0.6 oz pure alcohol) socially, no drink since 06/2023 [facility] Utilities Answer Date Recorded In [...] is lower risk 5 12/11/2023 Data from: https://www.neighborhoodatlas.medicine.[facility].edu/. Last address used for calculation [...] PATIENT PRESENTS WITH AN IMPLANTABLE OR ATTACHED [employer] SALES REPRESENTATIVE: No RADIOLOGY DEPARTMENT: General X-ray: Exam(s) Completed: Chest X-Ray PERIPHERAL IV DATA: Not applicable SIGNED BY: RT Gaviota(R) August 13, 2024 9:43 AM documented in this encounter Plan of Treatment Upcoming Encounters Date Type Department Care Team (Late st Contact Info) Description 12/15/2024 11:15 AM EDT [place] [address] [place] [address] [place] [address] [place] [address] Follow-up 12/16/2024 12:30 PM EDT Office Visit Vascular Surgery 57[address] [place] [address] Extremity cyanosis [R23.0] 12/16/2024 2:30 PM EDT Office Visit Vascular Surgery 5700 [place] [address] Extremity cyanosis [R23.0] 12/16/2024 3:30 PM EDT Office Visit Vascular Surgery 5700 [place] [address] Extremity cyanosis [R23.0] 12/22/2024 6:00 PM EDT [facility] Gastroenterology [address] [place] [address] Araseli Wall APRN.PIPELINE INTEGRITY ENGINEER [address] [place] [address] Elevated alkaline phosphatase leve 05/21/2025 2:00 PM EST Office Visit Cardiology [address] [place] [address] [place] [address] [facility] [place] [address] 6 month follow up documented as of this encounter Goals Goal Patient Goal Type Associated Problems Recent Progress Patient-Stated? Author Blood Pressure < 130/80 Blood Pressure 120/74( 025 10:15 PM EDT) No Sung Hartley MD documented as of this encounter Visit Diagnoses Not on filedocumented in this encounter Care Teams Supervisor Word Processing Relationship Specialty Start [place] [address] [facility] [address] PCP - General Family Medicine 12/29/23 Jere Sales MD [address] [address] Referring Gastroenterology 12/05/20 Calin Gotti DO [address] [place] [address] Internal Medicine 10/16/23 documented as of this encounter
--- OUTSIDE RECORDS SUMMARY | 2024-12-07 12:28 | XMS_ITS | Patient Health Record ---
Author Organization [facility] [place] Address [address] [place] [address] Care Team Providers Care Dryerman/Woman Name Role Phone Dawit Lorenz DO Primary Care Provider Tasneem fernandez Shila Gottihan Unavailable [phone] Allergies Allergen (clinical drug ingredient) Drug/Non Drug [...] nts Arexvy Unknown 05/27/2024 Administered Flu, Fluad (31943) 65 yrs + High Dose Seasonal (1116-0027) Unknown 05/27/2024 Administered Flu, Fluad (68293) 66 yrs + Trivalent (0455-0858) Unknown 05/09/2020 Administered Pneumococcal (Pneumovax 23) Unknown [...] Risk Notes Problem Erythrocyte sedimentation rate raised (683140359) Elevated erythrocyte sedimentation rate (R70.0) Active confirmed Problem Hyperlipidemia (33052391) Hyperlipidemia (E78.5) Active confirmed Problem Coronary artery disease (96282717) CAD (coronary artery disease) (I25.10) Active confirmed Problem Pleural effusion (87851413) Pleural effusion (J90) Active confirmed Problem Multiple pulmonary nodules (303861168) Multiple pulmonary nodules (R91.8) Active confirmed Problem Calcified lymph nodes (154974370) Calcified lymph nodes (I89.8) Active confirmed Problem Pericardial effusion (833541790) Pericardial effusion (I31.39) Active confirmed Vital Signs Heart Rate 83 /min 07/21/2024 Temperature 97.0 degrees Fahrenheit 07/21/2024 Respiratory Rate 18 /min 07/21/2024 Blood pressure diastolic 73 mm Hg 07/21/2024 Oximetry 96.8 % 07/21/2024 Height 72 in 07/21/2024 Blood pressure systolic 113 mm Hg 07/21/2024 Weight 196.4 lbs 07/21/2024 BMI 26.63 kg/m2 07/21/2024 Encounters Encounter Location Date Provider Diagnosis Pulmonary [facility] [place] [address] [place] [address] 01/20/2024 Cal[facility] Pulmonary Medicine [place] [address] [place] [address] 01/15/2024 Calin Gotti Chronic cough R05.3 ; Pleural effusion J90 ; Multiple pulmonary nodules R91.8 ; Pericardial effusion I31.39 ; Elevated erythrocyte sedimentation rate R70.0 and Calcified lymph nodes I89.8 [facility] [place] [address] [place] [address] 07/21/2024 Calin Gotti Pleural effusion J90 Assessments [...] drained Saturday. He has seen rheumatology at [facility] and they have not been able to determine a cause. Cytology/patholog y have returned negative for malignancy. I am not of much assistance here at [facility] given our small size. Other thought would be infectious disease. Could also consider checking cytology yet again, but if this really were malignant, overall yield with repeated thoracenteses only approaches roughly 70% of the time for positive diagnosis of malignant effusion. I suggest patient follow-up with [facility] pulmonary for second opinion. Patient states he wishes to see me here locally for any acute needs. Will follow-up with him in 6 months. 07/21/2024 Pleural effusion (ICD-10 - J90) Chronic [...] able to offer would be referral to [facility] in [place], [place] for a third opinion. At this time, I am not contributing anything additional to his therapy. He will follow-up as needed. 01/15/2024 Multiple pulmonary nodules (ICD-10 - R91.8) [...] Coverage End Date [employer] MED[employer] [address] [place], [place] [id number] Bryan Harris Self - patient is the insured Medical (General) History Medical History History ICD Code Elevated erythrocyte sedimentation rate R70.0 Pleural effusion J90 Pericardial effusion I31.39 Multiple pulmonary nodules R91.8 Calcified lymph nodes I89.8 CAD (coronary artery disease) I25.10 Surgical History Surgery Date(Month/Year) EGD 10/21/2020 Right TKA 06/25/2016 Left TKA 08/23/2014 Thoracentesis-09/04/2023 & 10/01/2023 Right Thoracoscopy/PleurX Catheter place ment-[facility] 11/20/2023 Hospitalization History Reason Date(Month/Year) Swelling/Edema-[facility] 12/20/2023
--- OUTSIDE RECORDS SUMMARY | 2024-12-07 12:28 | XMS_ITS | Clinical Summary ---
Author Organization [facility] Address [address] [place] [address] Care Team Providers Care Straight Cutter Name Role Phone Jere Sales MD Unavailable Calin Gotti DO Unavailable [phone] Jose Antonio Meyers MD Primary Care Provider Allergies Active Allergy Reactions Criticality Noted Date Comments Tramadol Mental Status Change Low 12/15/2020 Medications allopurinol (ZYLOPRIM) 300 mg tablet Take 300 mg by mouth once daily. 1 Active atorvastatin (LIPITOR) 10 mg tablet Take 1 tablet by mouth once daily. 1 Active diclofenac (VOLTAREN) 1 % topical gel 4 Active calcium rnn-vwp-E3-Zn-c op-kian 250 mg-40 mg- 125 unit-3.75mg tab [...] 10 mg by mouth once daily. Active torsemide (DEMADEX) 100 mg tabletIndicatio ns:Recurrent [...] once daily. 90 tablet 5 025 Active quiNINE 324 mg capsuleIndicati ons:Cramp and spasm Take 1 capsule by mouth twice daily 60 capsule 5 Active amoxicillin (AMOXIL) 500 mg capsule 4 025 Discontinued torsemide (DEMADEX) 100 mg tabletIndicatio ns:Recurrent 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,Anasarca Take 1 tablet by mouth once daily. 90 tablet [address] (PROTONIX) 40 mg tablet Take 40 mg by mouth once daily. 025 Discontinued potassium chloride (K-TAB) 20 mEq TbERIndications :Recurrent 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,Hypokalem ia 2 tablets by ORAL/FEEDIN G TUBE route three times a day. 540 tablet 5 025 quiNINE 324 mg capsuleIndicati ons:Cramp and spasm Take 1 capsule by mouth twice daily 60 capsule 5 025 Discontinued amoxicillin-cla vulanate potassium (AUGMENTIN) 875-125 mg per tablet Take 1 tablet by mouth every 12 hours for 6 days. 12 tablet 11/19/2024 5:59 PM EDT 5 025 Active Problems Patient Care Coordination No te [...] characters) 11/20/2023: SURGERY:R VATS Pleural biopsy, R video games mechanic and doxycycline pleurodesis, R Pleurx catheter [...] Controlled with current regimen of Fent MANAGER BODY, Tylenol 1000 mg q6hrs, oxycodone 5-10 mg [...] Encounters Date Type Department Care Team Description 11/25/2024 [place] [address] [place] [address] Jose Antonio Meyers MD Refill Request 11/24/2024 Results Follow-Up Cardiology [address] [place] [address] Zac Mendiola MD 11/23/2024 2:00 PM EDT - 11/23/2024 11:59 PM EDT Hospital Encounter Radiology [address] [place], [place] [id number] Hepatomegaly [R16.0] Discharge Disposition: Home 11/23/2024 12:00 PM EDT Office Visit Pulmonary Medicine [address] [place] [address] Triston Riggs MD Pleural effusion (Primary Dx); Pleuritis; Pericardial effusion (noninflammatory) (HCC); Lymphocytic colitis; Other ascites 11/23/2024 10:23 AM EDT - 11/23/2024 1:59 PM EDT Hospital Encounter Radiology [address] [address] Pleural effusion, not elsewhere classified [J90] Discharge Disposition: Home 11/23/2024 Telephone Thoracic Clinic [address] [place] [address] Ronaldo Ramos MD, PhD Received Outside Medical Records 11/20/2024 9:00 AM EDT Office Visit Cardiology [address] [place] [address] Zac Mendiola MD Extremity cyanosis (Primary Dx) 11/19/2024 4:20 PM EDT - 11/19/2024 5:20 PM EDT Surgery Admitting [address] [address] Triston Riggs MD REMOVAL TUNNELED PLUERAL CATH WITH CUFF 11/19/2024 4:19 PM EDT - 11/19/2024 5:00 PM EDT Hospital Encounter Admitting [address] [address] Triston Riggs MD Pleural effusion [J90] Discharge Disposition: Home 11/19/2024 2:00 PM EDT Office Visit Pulmonary Medicine [address] [place] [address] Triston Riggs MD Pleural effusion (Primary Dx) 11/19/2024 1:14 PM EDT - 11/19/2024 4:18 PM EDT Hospital Encounter Radiology [address] [place] [address] Pleural effusion [J90] Discharge Disposition: Home 11/17/2024 Telephone Pulmonary Medicine [address] [address] Amanda Brooks (Pss) Patient Question 11/17/2024 Patient [facility] [place] [facility] [address] [place] [address] Provider, Ccf ER Follow Up Appointment 11/13/2024 1:00 PM ED[place] [address] [facility] [place] [address] Jose Antonio Meyers MD Anasarca (Primary Dx); Recurrent 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; Hepatomegaly; Hiatal hernia; Chronic gastritis without bleeding, unspecified gastritis type; Hypomagnesemia 11/13/2024 Get Medical Advice Gastroenterology [address] [address] Provider, Ccf Willie Harris. 1950 11/12/2024 1:27 PM EDT - 11/12/2024 7:04 PM EDT Emergency [facility] Emergency Department [address] [place] [address] Khurram Magallanes MD Ems, MD Ed Fluid retention, weight gain, abdominal pain, shakes, called in by MD Discharge Disposition: Home 11/12/2024 Get Medical Advice Gastroenterology [address] [address] Provider, Ccf Willie Harris 1950 11/12/2024 Travel 11/04/2024 12:54 PM EDT - 11/04/2024 11:59 PM EDT Hospital Encounter [facility] [place] [address] [place] [address] Other ascites [R18.8] Discharge Disposition: Home 11/04/2024 12:54 PM EDT - 11/04/2024 11:59 PM EDT Hospital Encounter [facility] [place] [address] [place] [address] Discharge Disposition: Home 11/04/2024 Telephone [facility] [place] [address] [place] [address] Imaging[facility] Rad[facility] CT; Patient Update 11/03/2024 Results Follow-Up Gastroenterology [address] [address] Xiomara Santyoo, LETICIA.EXPERIMENTAL PSYCHOLOGIST 11/03/2024 [place] [address] [place] [address] Jose Antonio Meyers MD Pleural effusion (Primary Dx) 10/31/2024 Results Follow-Up Gastroenterology [address] [address] Xiomara Santoyo, LETICIA.EXPERIMENTAL PSYCHOLOGIST 10/27/2024 Orders Only Pulmonary Medicine [address] [place] [address] Vilma Graff MA Pleural effusion (Primary Dx) 10/23/2024 1:30 PM EDT - 10/23/2024 11:59 PM EDT Hospital Encounter [facility] Radiology Ultrasound [address] [facility] [place] [address] Elevated alkaline phosphatase level [R74.8] Discharge Disposition: Home 10/23/2024 Telephone Thoracic Clinic [address] [place], [place] [phone] Ronaldo Ramos MD, PhD Received Outside Medical Records 10/20/2024 Results Follow-Up Gastroenterology [address] [place] [phone] Xiomara Santoyo, COMMUNICATION PROFESSOR.EXPERIMENTAL PSYCHOLOGIST 10/19/2024 Get Medical Advice Pulmonary Medicine [address] [place], [place] [phone] Katerina Pascual PA-C Stan Moyer 1950 10/19/2024 [place] [address] [place], [place] [phone] Jose Antonio Meyers MD Refill Request 10/15/2024 9:20 AM EDT Office Visit [facility] [address] [address] Ar Suarez MD FLOYD (acute kidney injury) (Primary Dx); Elevated BUN; Elevated serum creatinine; Decreased GFR; Lymphocytic colitis; Pleural effusion, not elsewhere classified; Generalized edema 10/15/2024 Results Follow-Up Gastroenterology [address] [place] [phone] Xiomara Santyoo, LETICIA.EXPERIMENTAL PSYCHOLOGIST 10/15/2024 Orders Only Pulmonary Medicine [address] [place] [address] Vilma Graff MA Serositis (HCC) (Primary Dx) 10/15/2024 Orders Only Pulmonary Medicine [address] [place] [address] Vilma Graff MA 10/15/2024 Results Follow-Up Gastroenterology [address] [place] [phone] Ximoara Santoyo APRN.EXPERIMENTAL PSYCHOLOGIST 10/15/2024 Patient Outreach Kidney Medicine [facility] [address] [address] Ar Suarez MD 10/14/2024 3:00 PM EDT Office Visit Gastroenterology [address] [place] [phone] Xiomara Santoyo APRN.EXPERIMENTAL PSYCHOLOGIST Elevated BUN (Primary Dx); Elevated serum creatinine; Decreased GFR; Elevated alkaline phosphatase level 10/14/2024 1:37 PM EDT - 10/14/2024 2:06 PM EDT Hospital Encounter Admitting [address] [place] [address] Triston Riggs MD 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] Discharge Disposition: Home 10/14/2024 1:30 PM EDT - 10/14/2024 2:30 PM EDT Surgery Admitting [address] [place] [phone] Roseann Rosario MD THORACENTESIS NEEDLE OR CATHETER ASPIRATION OF THE PLEURAL SPACE W IMAGING GUIDANCE 10/14/2024 1:00 PM EDT Office Visit Pulmonary Medicine [address] [place], [place] [phone] Triston Riggs MD Clement, Stephanie, PA-C Pleural effusion (Primary Dx) 10/13/2024 12:52 PM EDT - 10/13/2024 11:59 PM EDT Hospital Encounter Radiology [address] [place] [address] [place] [address] Cough, unspecified type [R05.9] Discharge Disposition: Home 10/13/2024 Travel 10/10/2024 Telephone Admitting [address] [place] [phone] Hui Ivey HUC Appointment 10/07/2024 Get Medical Advice Pulmonary Medicine [address] [place] [address] Katerina Pascual PA-C Stan Moyer 1950 10/02/2024 1:15 PM EDT - 10/02/2024 3:20 PM EDT Hospital Encounter Admitting [address] [place] [phone] Merlyn Zavala MD 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] Discharge Disposition: Home 10/02/2024 11:46 AM EDT - 10/02/2024 12:46 PM EDT Surgery Admitting [address] [place] [phone] Merlyn Zavala MD THORACENTESIS NEEDLE OR CATHETER ASPIRATION OF THE PLEURAL SPACE W IMAGING GUIDANCE 10/02/2024 Get Medical Advice Gastroenterology [address] [place] [phone] Sue Terrell MD Stan Moyer 1950 10/02/2024 Get Medical Advice Gastroenterology [address] [place] [phone] Sue Terrell MD Stan Moyer 1950 10/02/2024 Abstract Pulmonary Medicine [address] [place], [place] [phone] Katerina Pascual PA-C 10/02/2024 Telephone Admitting [address] [place] [phone] Hui Ivey HUC Appointment Confirmation 09/25/2024 11:21 AM EDT Anesthesia Event Gastroenterology [address] [place] [phone] Nick Shipman MD 09/25/2024 10:30 AM EDT - 09/25/2024 11:59 PM EDT Hospital Encounter Gastroenterology [address] [place] [phone] Shay Dennis MD Esophageal dysphagia [R13.19] Discharge Disposition: Home 09/23/2024 Telephone Thoracic Clinic [address] [place], [place] [phone] Ronaldo Ramos MD, PhD Received Outside Medical Records 09/21/2024 Get Medical Advice Pulmonary Medicine [address] [place], [place] [phone] Triston Riggs MD Stan Moyer 1950 Steroid Injections 09/18/2024 Patient Msg Gastroenterology [address] [place] [phone] Provider, Ccf Procedure Instructions for EGD scheduled on 09/2509/18/2024 GI Preprocedure Call Gastroenterology [address] [place] [phone] Melinda Calderón RN 09/14/2024 Telephone Pulmonary Medicine [address] [place] [phone] Amanda Brooks (Pss) Patient Update 09/08/2024 11:22 AM EDT - 09/08/2024 11:41 AM EDT Hospital Encounter Admitting [address] [place] [phone] Roseann Rosario MD 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] Discharge Disposition: Home 09/08/2024 10:30 AM EDT - 09/08/2024 11:30 AM EDT Surgery Admitting [address] [place] [phone] Roseann Rosario MD THORACENTESIS NEEDLE OR CATHETER ASPIRATION OF THE PLEURAL SPACE W IMAGING GUIDANCE 09/08/2024 Orders Only Pulmonary Medicine [address] [place] [phone] Roseann Rosario MD from Last 3 Months Immunizations Immunization Administration Dates Next Due COVID-19 original vaccine, a ge 12+ yr, monovalent ([employer] - PURPLE TOP) 09/13/2020,08/22/2020,08/15/2020 influenza (HD-IIV3) vaccine, [...] the past 12 months has th e [employer], gas, oil, or water company threatened to [...] is lower risk 5 12/11/2023 Data from: https://www.neighborhoodatlas.[facility]/. Last address used for calculation [address] 12/11/2023 Sex and Gender Information Value Date [...] EDT [place] [address] [facility] [address] [place] [address] [place] [address] Follow-up 12/16/2024 12:30 PM EDT Office Visit Vascular Surgery [address] [place] [address] Extremity cyanosis [R23.0] 12/16/2024 2:30 PM EDT Office Visit Vascular Surgery [address] [place] [address] Extremity cyanosis [R23.0] 12/16/2024 3:30 PM EDT Office Visit Vascular Surgery [address] [place] [address] Extremity cyanosis [R23.0] 12/22/2024 6:00 PM EDT [facility] Gastroenterology [address] [place] [phone] Araseli Wall APRN.EXPERIMENTAL PSYCHOLOGIST [address] [place] [address] Elevated alkaline phosphatase leve 05/21/2025 2:00 PM EST Office Visit Cardiology [address] [place] [address] [place] [address] [facility] [place], [place] [phone] 6 month follow up Health Maintenance Due Date Last Done Comments Anxiety Screening 1969 Depression Screening 1969 Hepatitis A Vaccine (1 of 2 - Risk 2-dose series) 1970 CT Colonography 1996 Cologuard (FIT-DNA) 1996 Fecal Occult Blood 1996 Sigmoidoscopy 1996 Hepatitis B Vaccine (1 of 3 - Risk 3-dose series) 2011 Covid-19 Vaccine (5 - 2023-2 5 season) 2024 05/10/2021, 09/13/2020, 08/22/2020, Additional history exists Advance Directive Discussion 06/17/2024 Medicare Advantage Annual Wellness Visit 06/17/2024 Colonoscopy 04/28/2025 04/28/2024 Colorectal Cancer Screening 04/28/2025 Annual PCP Team Chronic Dise ase Visit 11/13/2025 11/13/2024 Diabetes Screening 11/18/2027 11/17/2024, 0 11/12/2024, 11/05/2024, [...] Farrell MD Medical Devices Implanted Type Area Wire Wrapping Machine Operator Device Identifier Shelf Expiration Date Model / Serial / Lot Catheter Catheter Right: Chest Description:Pleur-x catheter Joint - Knee Joint - Knee Bilateral : Bone - Knee Screw Screw Right: Bone - Wrist Procedures Procedure Name Priority Date/Time Associated Diagnosis Comments US ELASTOGRAPHY LIVER Routine 11/23/2024 3:05 PM EDT Hepatomegaly US ABD RIGHT UPPER QUADRANT Routine 11/23/2024 3:05 PM EDT Hepatomegaly XR CHEST 2V FRONTAL/LAT Routine 11/23/2024 12:33 [...] W/IMAGING 09/08/2024 10:53 AM EDT Bronchiolar disease CHOLESTEROL BFL Routine 05/18/2024 12:52 PM EST Pleural effusion COLONOSCOPY (THERAPEUTIC) Routine 04/28/2024 11:16 AM EST from Last 3 Months or Most Recently Relevant to Health Maintenance Results * US ELASTOGRAPHY LIVER (11/23/2024 3:05 [...] infiltrative diseases or in the post-prandial state. Technical Education Teacher: ALONSO Transcribe Date/Time: Nov 26 2024 7:29A Dictated by : KRISTINA SALINAS MD This examination was interpreted and the report reviewed and electronically signed by: KRISTINA SALINAS MD on Nov 26 2024 7:35AM EST Narrative 11/26/2024 7:37 AM EDT * * *Final Report* * * DATE OF EXAM: Nov 23 2024 3:05PM [facility] 1199 - US ELASTOGRAPHY LIVER / PROCEDURE [...] Trace-small right pleural effusion. Procedure Note Provider, [facility] [place] - 11/26/2024 * * *Final Report* * * DATE OF EXAM: Nov 23 2024 3:05PM [facility] 1199 - US ELASTOGRAPHY LIVER / PROCEDURE [...] infiltrative diseases or in the post-prandial state. Technical Education Teacher: ALONSO Transcribe Date/Time: Nov 26 2024 7:29A [...] infiltrative diseases or in the post-prandial state. Technical Education Teacher: PSCB Transcribe Date/Time: Nov 26 2024 7:29A Dictated [...] Trace-small right pleural effusion. Procedure Note Provider, [facility] [place] - 11/26/2024 * * *Final Report* * [...] infiltrative diseases or in the post-prandial state. Technical Education Teacher: ALONSO Transcribe Date/Time: Nov 26 2024 7:29A Dictated by : KRISTINA SALINAS MD This examination was interpreted and the report reviewed and electronically signed by: KRISTINA SALINAS MD on Nov 26 2024 7:35AM EST us Jose Antonio Meyers MD US-PAMA Final Resul t * XR CHEST 2V FRONTAL/LAT (11/23/2024 12:33 PM EDT) Anatomical Region Laterality Modality Chest Other 11/23/2024 12:3 3 PM EDT Impressions 11/23/2024 1:44 PM EDT IMPRESSION: See result. Technical Education Teacher: ALONSO Transcribe Date/Time: Nov 23 2024 1:39P [...] the left seventh rib. Procedure Note Provider, [facility] [place] - 11/23/2024 * * *Final Report* * [...] left seventh rib. IMPRESSION IMPRESSION: See result. Technical Education Teacher: ALONSO Transcribe Date/Time: Nov 23 2024 1:39P [...] the prior echocardiographic exam performed on 03/26/2024 ([facility]). * * * Final * * * Narrative [facility] - 11/23/2024 11:30 AM EDT Echocardiography Report: Transthoracic Echo [place] [facility] Office Date of service: 11/23/2024 9:16:58 AM CENTER RN Ordering physician: ZAC MENDIOLA Exam indication: Lower [...] ECHO Final Result [facility] [address] [place] [address] * LVEF TRANSTHORACIC ECHO (11/23/2024 9:16 AM EDT) LV Ejection Fraction 52 % [facility] Comment: (2D biplane) EF > 52 An LV Ejection Fraction of > 50% is normal 11/23/2024 9:1 6 AM EDT us Zac Mendiola MD LVEF RESULTS Final Result [facility] [address] [place] [address] * XR CHEST 1V FRONTAL PORT (11/19/2024 5:18 PM EDT) Anatomical Region Laterality Modality Chest Radiographic Cece ging 11/19/2024 5:18 PM EDT Impressions 11/19/2024 7:04 PM EDT IMPRESSION: See result. Technical Education Teacher: ALONSO Transcribe Date/Time: Nov 19 2024 6:59P [...] the aorta. Other: . Procedure Note Provider, [facility] [place] - 11/19/2024 * * *Final Report* * [...] aorta. Other: . IMPRESSION IMPRESSION: See result. Technical Education Teacher: ALONSO Transcribe Date/Time: Nov 19 2024 6:59P [...] 11/19/2024 4:04 PM EDT IMPRESSION: See result Technical Education Teacher: ALONSO Transcribe Date/Time: Nov 19 2024 3:58P [...] of the left rib/ribs. Procedure Note Provider, [facility] [place] - 11/19/2024 * * *Final Report* * [...] the left rib/ribs. IMPRESSION IMPRESSION: See result Technical Education Teacher: PSCB Transcribe Date/Time: Nov 19 2024 3:58P Dictated by : KYLER NICHOLAS MD This examination was interpreted and the report reviewed and electronically signed by: KYLER NICHOLAS MD on Nov 19 2024 4:01PM EST Katerina Pascual PA-C RAD-PAMA Final Res ult * MAGNESIUM (11/17/2024 1:53 PM EDT) Only the most recent of4 resultswithin the time period is included. Magnesium 2.3 1.7 - 2.3 mg/dL 11/18/2024 1:52 PM EDT [facility] Blood BLOOD SPECIMEN / Unknown Venipuncture / Unknown 11/17/2024 1:53 PM EDT 11/17/2024 1:53 PM EDT Jose Antonio Meyers MD LABORATORY Final Resul t [facility] [address] [facility] [address] [address], * IRON AND TIBC (11/17/2024 1:53 PM EDT) Iron 72 41 - 186 ug/dL 11/18/2024 2:24 PM EDT [facility] TIBC 321 232 - 386 ug/dL 11/18/2024 2:24 PM EDT [facility] Transferrin Saturation 22.4 15.0 - 57.0 % 11/18/2024 2:24 PM EDT [facility] Blood BLOOD SPECIMEN / Unknown Venipuncture / Unknown 11/17/2024 1:53 PM EDT 11/17/2024 1:53 PM EDT Jose Antonio Meyers MD LABORATORY Final Resul t Performing Organization Address [facility] Co de Phone Number [facility] [place] [phone], [place] * HEPATITIS C VIRUS (HCV) RNA, QUANTITATIVE PCR, PLASMA/SERUM (11/17/2024 1:53 PM EDT) [facility] HCV RNA Not detected Not detected KRISTIE CHARLENE [address]00 11/18/2024 10:20 AM EDT [facility] Blood BLOOD SPECIMEN / Unknown Venipuncture / Unknown 11/17/2024 1:53 PM EDT 11/17/2024 1:53 PM EDT [facility] - 11/18/2024 10:20 AM EDT charlene [...] LABORATORY Final Resul t Performing Organization Address City/[facility]/ZIP Co de Phone Number [facility] [address] [place] [phone], [place] * HEPATITIS B SURFACE ANTIGEN (11/17/2024 1:53 PM EDT) [facility] HBsAg Negative Negative 11/18/2024 11:16 AM EDT [facility] Blood BLOOD SPECIMEN / Unknown Venipuncture / Unknown 11/17/2024 1:53 PM EDT 11/17/2024 1:53 PM EDT us Jose Antonio Meyers MD LABORATORY Final Resul t Performing Organization Address [facility] Co de Phone Number [facility] [address] [place] [address], [place] * HEPATITIS B CORE ANTIBODY IGM (11/17/2024 1:53 PM EDT) Hep B Core Ab, IgM Negative Negative 11/18/2024 11:14 AM EDT [facility] Comment:No evidence of recen t infection with Hepatitis B virus. Should recent infection be suspected, repeat testing may be considered 3-4 weeks after this draw. Blood BLOOD SPECIMEN / Unknown Venipuncture / Unknown 11/17/2024 1:53 PM EDT 11/17/2024 1:53 PM EDT us Jose Antonio Meyers MD LABORATORY Final Resul t Performing Organization Address [facility] Co de Phone Number [facility] [address] [place] [address], [place] * HEPATITIS A ANTIBODY IGM (11/17/2024 1:53 PM EDT) Hep A Ab, IgM Negative Negative 11/18/2024 11:20 AM EDT [facility] Comment:No evidence of recen t infection with Hepatitis A virus. Blood BLOOD SPECIMEN / Unknown Venipuncture / Unknown 11/17/2024 1:53 PM EDT 11/17/2024 1:53 PM EDT us Jose Antonio Meyers MD LABORATORY Final Resul t Performing Organization Address City/[facility] Co de Phone Number [facility] [address] [place] [address], [place] * (ABNORMAL) COPPER BLOOD (11/17/2024 1:53 PM EDT) Copper 159(H) 70 - 140 ug/dL 11/18/2024 11:03 AM EDT [facility] Comment:This test was develo ped, and its performance characteristics determined by the [facility] Department of Pathology and Laboratory Medicine. It has not been cleared or approved by the FDA. The [facility] Department of Pathology and Laboratory Medicine is regulated under CLIA as qualified to perform high- complexity testing. This test is used for clinical purposes. It should not be regarded as investigational or for research. Blood BLOOD SPECIMEN / Unknown Venipuncture / Unknown 11/17/2024 1:53 PM EDT 11/17/2024 1:53 PM EDT us Jose Antonio Meyers MD LABORATORY Final Resul t [facility] [address] [place] [address], * (ABNORMAL) COMPREHENSIVE METABOLIC PANEL (11/17/2024 1:53 PM EDT) Only the most recent of4 resultswithin the time period is included. Pathologist [facility] Protein, Total 7.3 6.3 - 8.0 g/dL 11/18/2024 1:52 PM EDT [facility] Albumin 4.1 3.9 - 4.9 g/dL 11/18/2024 1:52 PM EDT [facility] Calcium, Total 9.5 8.5 - 10.2 mg/dL 11/18/2024 1:52 PM EDT [facility] Bilirubin, Total 0.8 0.2 - 1.3 mg/dL 11/18/2024 1:52 PM EDT [facility] Alkaline Phosphatase 112 38 - 113 U/L 11/18/2024 1:52 PM EDT [facility] AST 47(H) 14 - 40 U/L 11/18/2024 1:52 PM EDT [facility] ALT 34 10 - 54 U/L 11/18/2024 1:52 PM EDT [facility] Glucose 104(H) 74 - 99 mg/dL 11/18/2024 1:52 PM EDT [facility] Comment: The [place] Diabetes Association (ADA) provides guidance for cutoff [...] Standards of Medical Care in Diabetes 2016, [place] [employer]. Diabetes Care. 2016.39(Suppl 1). BUN 55(H) 9 - 24 mg/dL 11/18/2024 1:52 PM [facility] Creatinine 1.38(H) 0.73 - 1.22 mg/dL 11/18/2024 1:52 PM [facility] Sodium 139 136 - 144 mmol/L 11/18/2024 1:52 PM [facility] Potassium 3.8 3.7 - 5.1 mmol/L 11/18/2024 1:52 PM [facility] Chloride 97(L) 98 - 107 mmol/L 11/18/2024 1:52 PM [facility] CO2 30 22 - 30 mmol/L 11/18/2024 1:52 PM [facility] Anion Gap 12 8 - 15 mmol/L 11/18/2024 1:52 PM [facility] Estimated Glomerular Filtration Rate 54(L) >=60 mL/min/1. 73m 11/18/2024 1:52 PM [facility] Comment:Estimated Glomerular Filtration [...] LABORATORY Final Resul t Performing Organization Address [facility] de Phone Number [facility] [address] [place] [phone], [place] * HEPATITIS C ANTIBODY IA WITH CONFIRMATION (11/17/2024 1:53 PM [address]T) [facility] Hep C Antibody IA Negative Negative 11/18/2024 11:05 AM EDT [facility] Comment:The result suggests no evidence of infection with Hepatitis C virus. Should recent infection be suspected, repeat testing may be considered 4-6 weeks after this draw. Blood BLOOD SPECIMEN / Unknown Venipuncture / Unknown 11/17/2024 1:53 PM EDT 11/17/2024 1:53 PM EDT us Jose Antonio Meyers MD LABORATORY Final Resul t Performing Organization Address [facility] de Phone Number [facility] [address] [id number], [place] * (ABNORMAL) HIGH SENSITIVITY TROPONIN T (THIRD) 3 HRS AFTER INITIAL (11/12/2024 5:13 PM EDT) [facility] HELIO High Sensitivity 16(H) <12 ng/L 11/12/2024 5:40 PM EDT [facility] Blood BLOOD SPECIMEN / Unknown Venipuncture / Unknown 11/12/2024 5:13 PM EDT 11/12/2024 5:17 PM EDT us Juliano Garcia MD LABORATORY Final Result Performing Organization Address [facility] Co de Phone Number [facility] [address] [phone], [place] * US DVT LOWER BILATERAL (11/12/2024 [...] of the left and right lower extremities. Technical Education Teacher: ALONSO Transcribe Date/Time: Nov 12 2024 4:27P Dictated by : TAJ CINTRON MD This examination was interpreted and the report reviewed and electronically signed by: CHANTEL HEIN MD on Nov 12 2024 4:30PM EST Narrative 11/12/2024 4:33 PM EDT * * *Final Report* * * DATE OF EXAM: Nov 12 2024 4:18PM [facility] 1005 - US DVT LOWER ROCIO / [...] calf, not otherwise assessed. Procedure Note Provider, [facility] [place] - 11/12/2024 * * *Final Report* * * DATE OF EXAM: Nov 12 2024 4:18PM [facility] 1005 - US DVT LOWER ROCIO / [...] of the left and right lower extremities. Technical Education Teacher: [facility] Transcribe Date/Time: Nov 12 2024 4:27P Dictated by : TAJ CINTRON MD This examination was interpreted and the report reviewed and electronically signed by: CHANTEL HEIN MD on Nov 12 2024 4:30PM EST Khurram Magallanes MD US-PAMA Final Result * (ABNORMAL) HIGH SENSITIVITY TROPONIN T (SECOND) (11/12/2024 3:11 PM EDT) HELIO High Sensitivity 17(H) <12 ng/L 11/12/2024 3:45 PM EDT [facility] Blood BLOOD SPECIMEN / Unknown Venipuncture / Unknown 11/12/2024 3:11 PM EDT 11/12/2024 3:15 PM EDT Juliano Garcia MD LABORATORY Final Result [facility] [address] [address], [place] * XR CHEST 2V FRONTAL/LAT (11/12/2024 1:49 PM EDT) Anatomical Region Laterality Modality Chest Radiographic Cece ging 11/12/2024 1:49 PM EDT Impressions 11/12/2024 1:55 PM EDT IMPRESSION: Similar appearance of small right loculated pleural effusion compared to prior. No new radiographic abnormalities. Technical Education Teacher: [facility] Transcribe Date/Time: Nov 12 2024 1:50P Dictated [...] changes of the spine. Procedure Note Provider, [facility] [place] - 11/12/2024 * * *Final Report* * [...] compared to prior. No new radiographic abnormalities. Technical Education Teacher: ALONSO Transcribe Date/Time: Nov 12 2024 1:50P Dictated by : OCTAVIO WOODARD MD This examination was interpreted and the report reviewed and electronically signed by: MERLYN EASTON MD on Nov 12 2024 1:53PM EST us Juliano Garcia MD RAD-PAMA Final Result * (ABNORMAL) HIGH SENSITIVITY TROPONIN T (INITIAL) (11/12/2024 1:30 PM EDT) [facility] HELIO High Sensitivity 18(H) <12 ng/L 11/12/2024 2:04 PM EDT [facility] Blood BLOOD SPECIMEN / Unknown Venipuncture / Unknown 11/12/2024 1:30 PM EDT 11/12/2024 1:34 PM EDT us Juliano Garcia MD LABORATORY Final Result Performing Organization Address [facility] Co de Phone Number [facility] [address] [place] [address], * (ABNORMAL) NT PRO BNP (11/12/2024 1:30 PM EDT) [facility] NT Pro BNP 465(H) <125 pg/mL 11/12/2024 2:04 PM EDT [facility] Blood BLOOD SPECIMEN / Unknown Venipuncture / Unknown 11/12/2024 1:30 PM EDT 11/12/2024 1:34 PM EDT us Juliano Garcia MD LABORATORY Final Result Performing Organization Address [facility] Co de Phone Number [facility] [address] [place] [address], * (ABNORMAL) COMPLETE BLOOD COUNT AND DIFFERENTIAL (11/12/2024 1:30 PM EDT) Only the most recent of2 resultswithin the time period is included. [facility] WBC 8.79 3.70 - 11.00 k/uL 11/12/2024 1:39 PM EDT [facility] RBC 3.82(L) 4.20 - 6.00 m/uL 11/12/2024 1:39 PM EDT [facility] Hemoglobin 12.3(L) 13.0 - 17.0 g/dL 11/12/2024 1:39 PM EDT [facility] Hematocrit 37.1(L) 39.0 - 51.0 % 11/12/2024 1:39 PM EDT [facility] MCV 97.1 80.0 - 100.0 fL 11/12/2024 1:39 PM EDT [facility] MCH 32.2 26.0 - 34.0 pg 11/12/2024 1:39 PM EDT [facility] MCHC 33.2 30.5 - 36.0 g/dL 11/12/2024 1:39 PM EDT [facility] RDW-CV 16.6(H) 11.5 - 15.0 % 11/12/2024 1:39 PM EDT [facility] Platelet Count 189 150 - 400 k/uL 11/12/2024 1:39 PM EDT [facility] MPV 10.0 9.0 - 12.7 fL 11/12/2024 1:39 PM EDT [facility] Neutrophils % 80.0 % 11/12/2024 1:39 PM EDT [facility] Abs Neut 7.03 1.45 - 7.50 k/uL 11/12/2024 1:39 PM EDT [facility] Lymphocytes % 10.4 % 11/12/2024 1:39 PM EDT [facility] Abs Lymph 0.91(L) 1.00 - 4.00 k/uL 11/12/2024 1:39 PM EDT [facility] Monocytes % 7.6 % 11/12/2024 1:39 PM EDT [facility] Abs [place] 0.67 <0.87 k/uL 11/12/2024 1:39 PM EDT [facility] Eosinophils % 0.0 % 11/12/2024 1:39 PM EDT [facility] Abs Eosin <0.03 <0.46 k/uL 11/12/2024 1:39 PM EDT [facility] Basophils % 0.2 % 11/12/2024 1:39 PM EDT [facility] Abs Baso <0.03 <0.11 k/uL 11/12/2024 1:39 PM EDT [facility] Immature Granulocytes % 1.8 % 11/12/2024 1:39 PM EDT [facility] Abs Immature Gran 0.16(H) <0.10 k/uL 025 1:39 PM EDT [facility] NRBC 0.0 /100 WBC 11/12/2024 1:39 PM EDT [facility] Absolute nRBC <0.01 <0.01 k/uL 11/12/2024 1:39 PM EDT [facility] Diff Type Auto 11/12/2024 1:39 PM EDT [facility] Blood BLOOD SPECIMEN / Unknown Venipuncture / Unknown 11/12/2024 1:30 PM EDT 11/12/2024 1:34 PM EDT us Juliano Garcia MD LABORATORY Final Result [facility] [address] [place] [address], * ECG COMPLETE (11/12/2024 1:24 PM EDT) Ventricular Rate 88 BPM [facility] Atrial Rate 88 BPM [facility] P-R Interval 176 ms [facility] QRS Duration 80 ms [facility] QT Interval 354 ms [facility] QTC Calculation (Bazett) 428 ms [facility] Calculated P Bradford 8 degrees [facility] Calculated R Bradford 3 degrees [facility] Calculated T Bradford 246 degrees [facility] 11/12/2024 1:24 PM EDT Impressions [facility] - 11/22/2024 12:19 PM EDT SINUS RHYTHM WITH OCCASIONAL PREMATURE VENTRICULAR COMPLEXES NONSPECIFIC T WAVE ABNORMALITY ABNORMAL ECG Confirmed by JULIANO GARCIA ([id number]), associate editor ANA PORTILLO ([id number]) on 11/22/2024 12:18:59 PM Narrative [facility] - 11/22/2024 12:19 PM EDT NAME : BRYAN HARRIS PID : [id number] : 1950 Gender : Male Race : ORD : [id number] Procedure Date : Nov 12 2024 13:24:15 Edit Date : Nov 22 2024 12:19:03 Diagnosis: SINUS RHYTHM WITH OCCASIONAL PREMATURE VENTRICULAR COMPLEXES NONSPECIFIC T WAVE ABNORMALITY ABNORMAL ECG Confirmed by JULIANO GARCIA ([id number]), associate editor ANA PORTILLO ([id number]) on 11/22/2024 12:18:59 PM Test Reason : Chest Pain Location : 2 : EDNS 003 Overread By : JULIANO GARCIA Edited By : ANA PORTILLO Referred By : , Acquired by : , us Juliano Garcia MD EKG Final Result [facility] [address] [place], [place] [id number] * (ABNORMAL) COMPLETE BLOOD COUNT (11/05/2024 11:42 AM EDT) Only the most recent of3 resultswithin the time period is included. WBC 8.65 3.70 - 11.00 k/uL 11/05/2024 11:44 AM EDT [facility] RBC 3.89(L) 4.20 - 6.00 m/uL 11/05/2024 11:44 AM EDT [facility] Hemoglobin 12.4(L) 13.0 - 17.0 g/dL 11/05/2024 11:44 AM EDT [facility] Hematocrit 38.3(L) 39.0 - 51.0 % 11/05/2024 11:44 AM EDT [facility] MCV 98.5 80.0 - 100.0 fL 11/05/2024 11:44 AM EDT [facility] MCH 31.9 26.0 - 34.0 pg 11/05/2024 11:44 AM EDT [facility] MCHC 32.4 30.5 - 36.0 g/dL 11/05/2024 11:44 AM EDT [facility] RDW-CV 16.2(H) 11.5 - 15.0 % 11/05/2024 11:44 AM EDT [facility] Platelet Count 150 150 - 400 k/uL 11/05/2024 11:44 AM EDT [facility] MPV 9.8 9.0 - 12.7 fL 11/05/2024 11:44 AM EDT [facility] Absolute nRBC <0.01 <0.01 k/uL 11/05/2024 11:44 AM EDT [facility] Blood BLOOD SPECIMEN / Unknown Venipuncture / Unknown 11/05/2024 11:42 AM EDT 11/05/2024 11:42 AM EDT Jose Antonio Meyers MD LABORATORY Final Resul t [facility] [address] [place] [address] * (ABNORMAL) BASIC METABOLIC PANEL (11/05/2024 11:42 AM EDT) Only the most recent of2 resultswithin the time period is included. [facility] Glucose 140(H) 74 - 99 mg/dL 11/05/2024 12:19 PM EDT [facility] Comment: The [place] Diabetes Association (ADA) provides guidance for cutoff [...] Standards of Medical Care in Diabetes 2016, [place] Diabetes Association. Diabetes Care. 2016.39(Suppl 1). BUN 39(H) 9 - 24 mg/dL 11/05/2024 12:19 PM EDT [facility] Creatinine 1.08 0.73 - 1.22 mg/dL 11/05/2024 12:19 PM EDT [facility] Sodium 138 136 - 144 mmol/L 11/05/2024 12:19 PM EDT [facility] Potassium 4.0 3.7 - 5.1 mmol/L 11/05/2024 12:19 PM EDT [facility] Chloride 100 98 - 107 mmol/L 11/05/2024 12:19 PM EDT [facility] CO2 25 22 - 30 mmol/L 11/05/2024 12:19 PM EDT [facility] Anion Gap 13 8 - 15 mmol/L 11/05/2024 12:19 PM EDT [facility] Calcium, Total 9.0 8.5 - 10.2 mg/dL 11/05/2024 12:19 PM EDT [facility] Estimated Glomerular Filtration Rate 72 >=60 mL/min/1. 73m 11/05/2024 12:19 PM EDT [facility] Comment:Estimated Glomerular Filtration Rate (eGFR) [...] 11/05/2024 11:42 AM EDT us Jose Antonio Meyers MD LABORATORY Final Resul t [facility] [address] [place] [address] * CT ENTEROGRAPHY W IVCON (11/04/2024 3:04 PM EDT) Anatomical Region Laterality Modality Abdomen Computed Tomogra phy 11/04/2024 3:04 PM EDT Impressions 11/04/2024 5:16 PM EDT IMPRESSION: NO ACTIVE INFLAMMATORY SMALL BOWEL CROHN'S DISEASE. SUSPECTED CHRONIC LIVER DISEASE WITH SMALL VOLUME ASCITES. SMALL RIGHT PLEURAL EFFUSION WITH RIGHT PLEURAL CATHETER. SMALL HIATAL HERNIA. Technical Education Teacher: ALONSO Transcribe Date/Time: Nov 04 2024 3:57P Dictated by : IZABELA LAMBERT MD This examination was interpreted and the report reviewed and electronically signed by: IZABELA LAMBERT MD on Nov 04 2024 5:14PM EST Narrative 11/04/2024 5:16 PM EDT * * *Final Report* * * DATE OF EXAM: Nov 04 2024 3:04PM [facility] 0545 - CT ENTEROGRAPHY W IVCON / [...] images: No additional findings. Procedure Note Provider, [facility] [place] - 11/04/2024 * * *Final Report* * * DATE OF EXAM: Nov 04 2024 3:04PM [facility] 0545 - CT ENTEROGRAPHY W IVCON / [...] WITH RIGHT PLEURAL CATHETER. SMALL HIATAL HERNIA. Technical Education Teacher: ALONSO Transcribe Date/Time: Nov 04 2024 3:57P Dictated by : IZABELA LAMBERT MD This examination was interpreted and the report reviewed and electronically signed by: IZABELA LAMBERT MD on Nov 04 2024 5:14PM EST Xiomara Santoyo APRN.EXPERIMENTAL PSYCHOLOGIST [facility]AMA Final Re sult * FAT, FECAL QUAL (10/28/2024 11:00 AM EDT) Pathologist [facility] Fat, Fecal - Neutral Normal Normal 10/31/2024 12:57 AM EDT [facility] Fat, Fecal - Split Normal Normal 10/31/2024 12:57 AM EDT [facility] Comment: INTERPRETIVE INFORMATION: Fecal Fat Qualitative Neutral fats include the monoglycerides, diglycerides, and triglycerides while split fats are the free fatty acids that are liberated from them. Impaired synthesis or secretion of pancreatic enzymes or bile may cause an increase in neutral fats while an increase in split fats suggests impaired absorption of nutrients. Performed By: [employer] [address] [place] [address] Shipping Processor: Arley Correa MD, PhD CLIA Number: [id number] Stool STOOL SPECIMEN / Unknown Non Blood / Unknown 10/28/2024 11:00 AM EDT 10/28/2024 12:40 PM EDT Xiomara Santoyo APRN.[facility] Final Re sult [facility] [employer] [address] [place] [address] * US ABD SPLEEN - NB (10/23/2024 2:18 PM EDT) Anatomical Region Laterality Modality Ultrasound 10/23/2024 2:18 PM EDT Impressions 10/26/2024 2:36 PM EDT IMPRESSION: 1. Mild nodularity of the liver surface, which may be seen with cirrhosis. No focal hepatic lesions. 2. Small volume abdominal ascites. No splenomegaly. Technical Education Teacher: [facility] Transcribe Date/Time: Oct 26 2024 2:30P Dictated by : SANDRA BELTRE MD This examination was interpreted and the report reviewed and electronically signed by: SANDRA BELTRE MD on Oct 26 2024 2:34PM EST Narrative 10/26/2024 2:36 PM EDT * * *Final Report* * * DATE OF EXAM: Oct 23 2024 2:18PM [facility] 1232 - US ABD SPLEEN -NB [...] are no splenic lesions. Procedure Note Provider, [facility] - 10/26/2024 * * *Final Report* * * DATE OF EXAM: Oct 23 2024 2:18PM [facility] 1232 - US ABD SPLEEN -NB [...] 2. Small volume abdominal ascites. No splenomegaly. Technical Education Teacher: ALONSO Transcribe Date/Time: Oct 26 2024 2:30P Dictated by : SANDRA BELTRE MD This examination was interpreted and the report reviewed and electronically signed by: SANDRA BELTRE MD on Oct 26 2024 2:34PM EST us Xiomara Santoyo COMMUNICATION PROFESSOR.EXPERIMENTAL PSYCHOLOGIST [facility] Final Re sult * US ABD RIGHT UPPER QUADRANT (10/23/2024 2:18 PM EDT) Anatomical Region Laterality Modality Abdomen Ultrasound 10/23/2024 2:18 PM EDT Impressions 10/26/2024 2:36 PM EDT IMPRESSION: 1. Mild nodularity of the liver surface, which may be seen with cirrhosis. No focal hepatic lesions. 2. Small volume abdominal ascites. No splenomegaly. Technical Education Teacher: [facility] Transcribe Date/Time: Oct 26 2024 2:30P Dictated [...] are no splenic lesions. Procedure Note Provider, [facility] [place] - 10/26/2024 * * *Final Report* * [...] 2. Small volume abdominal ascites. No splenomegaly. Technical Education Teacher: ALONSO Transcribe Date/Time: Oct 26 2024 2:30P Dictated by : SANDRA BELTRE MD This examination was interpreted and the report reviewed and electronically signed by: SANDRA BELTRE MD on Oct 26 2024 2:34PM EST us Xiomara Santoyo COMMUNICATION PROFESSOR.EXPERIMENTAL PSYCHOLOGIST [facility]-PAMA Final Re sult * IGG SUBCLASS 1,2,3,4 (10/23/2024 1:18 PM EDT) IgG Subclass 1 576.5 382.4 - 928.6 mg/dL 10/26/2024 3:36 PM EDT [facility] IgG Subclass 2 251.2 241.8 - 700.3 mg/dL 10/26/2024 3:36 PM EDT [facility] IgG Subclass 3 50.4 21.8 - 176.1 mg/dL 10/26/2024 3:36 PM EDT [facility] IgG Subclass 4 64.4 3.9 - 86.4 mg/dL 10/26/2024 3:36 PM EDT [facility] Blood BLOOD SPECIMEN / Unknown Venipuncture / Unknown 10/23/2024 1:18 PM EDT 10/23/2024 1:19 PM EDT us Ar Suarez MD LABORATORY Final Resu lt [facility] [address] [address], [place] * LIPASE (10/23/2024 1:18 PM EDT) Lipase 55 16 - 61 U/L 10/23/2024 2:05 PM EDT [facility] Blood BLOOD SPECIMEN / Unknown Venipuncture / Unknown 10/23/2024 1:18 PM EDT 10/23/2024 1:19 PM EDT us Ar Suarez MD LABORATORY Final Resu lt Performing Organization Address City/[facility]/ZIP Co de Phone Number [facility] [address] [facility] [place] [address], [place] * IMMUNOGLOBULIN G (10/23/2024 1:18 PM EDT) IgG 1,100 700 - 1,600 mg/dL 10/23/2024 7:51 PM EDT [facility] Blood BLOOD SPECIMEN / Unknown Venipuncture / Unknown 10/23/2024 1:18 PM EDT 10/23/2024 1:19 PM EDT Ar Suarez MD LABORATORY Final Resu lt [facility] [address] [facility] [address] [address], [place] * AMYLASE (10/23/2024 1:18 PM EDT) Pathologist [facility] Amylase 70 30 - 104 U/L 10/23/2024 2:05 PM EDT [facility] Blood BLOOD SPECIMEN / Unknown Venipuncture / Unknown 10/23/2024 1:18 PM EDT 10/23/2024 1:19 PM EDT us Ar Suarez MD LABORATORY Final Resu lt [facility] [address] [facility] [place] [address], [place] * (ABNORMAL) ALKALINE PHOSPHATASE ISOENZYMES (P) (10/15/2024 10:25 AM EDT) [facility] Alk Phos Bone % 18.1 10.7 - 68.3 % 10/16/2024 9:58 PM EDT [facility] Bone Fraction 22.6 12.9 - 52.6 U/L 10/16/2024 9:58 PM EDT [facility] Alk Phos Liver % 81.9 26.0 - 86.2 % 10/16/2024 9:58 PM EDT [facility] Liver Fraction 102.4(H) 16.0 - 69.3 U/L 10/16/2024 9:58 PM EDT [facility] Alk Phos Intestine % 0.0 0.0 - 24.2 % 10/16/2024 9:58 PM EDT [facility] Intestine Fraction 0.0 0.0 - 16.3 U/L 10/16/2024 9:58 PM EDT [facility] Blood BLOOD SPECIMEN / Unknown Venipuncture / Unknown 10/15/2024 10:25 AM EDT 10/15/2024 10:26 AM EDT us Xiomara Santoyo APRN.EXPERIMENTAL PSYCHOLOGIST LABORATORY Final Re sult [facility] [address] [facility] [address] [place] [address], [place] * (ABNORMAL) SEDIMENTATION RATE, WESTERGREN (10/15/2024 10:25 AM EDT) Sed Rate, Westergren 34(H) 0 - 15 mm/hr 10/15/2024 2:45 PM EDT [facility] Blood BLOOD SPECIMEN / Unknown Venipuncture / Unknown 10/15/2024 10:25 AM EDT 10/15/2024 10:26 AM EDT Ar Suarez MD LABORATORY Final Resu lt Performing Organization Address [facility]/ZIP Co de Phone Number [facility] [address] [place] [address], [place] * (ABNORMAL) ALKALINE PHOSPHATASE (10/15/2024 10:25 AM EDT) Alkaline Phosphatase 125(H) 38 - 113 U/L 10/15/2024 7:51 PM EDT [facility] Blood BLOOD SPECIMEN / Unknown Venipuncture / Unknown 10/15/2024 10:25 AM EDT 10/15/2024 10:26 AM EDT us Xiomara Santoyo APRN.EXPERIMENTAL PSYCHOLOGIST LABORATORY Final Re sult Performing Organization Address [facility]/ZIP Co de Phone Number [facility] [address] [place] [address], [place] * (ABNORMAL) HIGH SENSITIVITY C-REACTIVE PROTEIN (10/15/2024 10:25 AM EDT) UltraSens C-Reactive Protein 13.2(H) <3.1 mg/L 10/15/2024 7:51 PM EDT [facility] Comment: hsCRP < 1.0 mg/L, relative risk is low hsCRP 1.0-3.0 mg/L, relative risk is average hsCRP > 3.0 mg/L, relative risk is high Reference: Roman TA, Wilma GA, Octavio RW, et al. Markers of Inflammation and Cardiovascular Disease. Application to Clinical and Public Health Practice. A Statement for Healthcare Professionals from the Centers for Disease Control and Prevention and the [place] [employer]. Circulation 2003;107:499-511. Blood BLOOD SPECIMEN / Unknown Venipuncture / Unknown 10/15/2024 10:25 AM EDT 10/15/2024 10:26 AM EDT Ar Suarez MD LABORATORY Final Resu lt Performing Organization Address [facility] Co de Phone Number [facility] [address] [facility] [place] [address], [place] * (ABNORMAL) PROTEIN / CREATININE RATIO (10/15/2024 10:09 AM EDT) Protein, Urine Random <4 0 - 20 mg/dL 10/15/2024 10:10 PM EDT [facility] Creatinine, Ur Random (UCRR) 12.6(L) 20.0 - 300.0 mg/dL 10/15/2024 10:10 PM EDT [facility] Protein/Creat Ratio <0.32(H) <0.15 mg/mg 10/15/2024 10:10 PM EDT [facility] Comment: Adult Proteinuria Categories: <0.15 mg/mg [...] 10:09 AM EDT 10/15/2024 11:02 AM EDT Ar Suarez MD LABORATORY Final Resu lt Performing Organization Address [facility]/ZIP Co de Phone Number [facility] [address] [id number], [place] * UA DIP, URINE (POC) (10/15/2024 9:38 AM EDT) GLUCOSE UA (POCT) Negative Negative mg/dL [facility] BILIRUBIN UA (POCT) Negative Negative [facility] KETONE UA (POCT) Negative Negative mg/dL [facility] SPECIFIC GRAVITY UA (POCT) 1.015 1.005 - 1.030 [facility] HEMOGLOBIN/BLOOD UA (POCT) Negative Negative [facility] PH UA (POCT) 7.0 4.5 - 8.0 [facility] PROTEIN UA (POCT) Negative Negative mg/dL [facility] UROBILINOGEN UA (POCT) 0.2 Normal E.U./dL [facility] NITRITE UA (POCT) Negative Negative [facility] LEUKOCYTES UA (POCT) Negative Negative [facility] COLOR UA (POCT) Light yellow C [facility] CLARITY UA (POCT) Clear [facility] 10/15/2024 9:38 AM EDT Narrative [facility] POINT OF CARE - 10/15/2024 9:38 AM EDT Location:[facility], [address] [place] [address], [facility] us Ar Suarez MD POC TESTING Final Resu lt Performing Organization Address [facility]/ZIP Co de Phone Number [facility] POINT OF CARE [address] * (ABNORMAL) GGT (10/14/2024 3:53 PM EDT) [facility] GGT 136(H) 10 - 70 U/L 10/15/2024 3:16 AM EDT [facility] Blood BLOOD SPECIMEN / Unknown Venipuncture / Unknown 10/14/2024 3:53 PM EDT 10/14/2024 3:53 PM EDT us Xiomara Santoyo APRN.EXPERIMENTAL PSYCHOLOGIST LABORATORY Final Re sult [facility] [address] [place] [address] [address] [place] [address], [place] * PROTEIN, BODY FLUID (10/14/2024 1:53 PM EDT) [facility] Protein, Body Fluid 2.5 See Comment g/dL 10/14/2024 4:24 PM EDT [facility] Comment: Serous fluids: Effusions are [...] document C49A. RAJEEV Bui: Clinical Laboratory Standards [place]: 2007. Fluid, Thoracentesis PLEURAL FLUID / Unknown 10/14/2024 1:53 PM EDT 10/14/2024 2:25 PM EDT us Roseann Rosario MD LABORATORY Final Result [facility] [address] [facility] [place] [address], [place] * LACTATE DEHYDROGENASE, BODY FLUID (10/14/2024 1:53 PM EDT) LD,Body Fluid 110 See Comment U/L 10/14/2024 4:24 PM EDT [facility] Comment: Pleural fluids: Pleural fluid [...] document C49A. RAJEEV Bui: Clinical Laboratory Standards [place]: 2007. Reference: 2. Rafael STARK, Fei Doyle. [...] us Roseann Rosario MD LABORATORY Final Result [facility] [address] [facility] [address] [address], [place] * US CHEST (POC) H23 USE [...] any questions regarding this interpretation, please call [phone]. If you are unable to reach us at the number above, please feel free to contact [facility] at [phone]. Narrative 10/13/2024 3:26 PM EDT * * [...] and soft tissues: Unremarkable. Procedure Note Provider, [facility] - 10/13/2024 * * *Final Report* * [...] any questions regarding this interpretation, please call [phone]. If you are unable to reach us at the number above, please feel free to contact [facility] [facility] at [phone]. us Louise Douglas MD RAD-PAMA Final Result * PT ED PATIENT INFORMATION (10/08/2024) 10/08/2024 Narrative KATHY - 11/23/2024 Provider MALACHI your patient BRYAN HARRIS has not started their Kathy program, time has . Kathy program: PATIENT SAFETY INSTRUCTIONS FOR HEALTHCARE SETTINGS us Xiomara Santoyo COMMUNICATION PROFESSOR.EXPERIMENTAL PSYCHOLOGIST KATHY Final Re sult KATHY * US CHEST (POC) H23 USE ONLY (10/02/2024 12:23 PM EDT) Anatomical Region Laterality Modality Other 10/02/2024 12:2 3 PM EDT us Merlyn Zavala MD IMAGES Final Resu lt * SURGICAL PATHOLOGY (09/25/2024 11:32 AM EDT) Case Report Surgical Pathology Report Case: [id number] Authorizing Provider: Shay Dennis MD Collected: 09/25/2024 11:32 AM Ordering Location: Gastroenterology Received: 09/25/2024 04:32 PM Pathologist: Simba Frias MD, PhD Specimen: Stomach, Biopsy, R/O: H. Pylori 10/01/2024 5:25 PM EDT [facility] FINAL DIAGNOSIS A. Stomach, biopsy: - Chronic focally active gastritis and reactive gastropathy in antral and oxyntic mucosa. - Negative for intestinal metaplasia or dysplasia. - H. pylori immunostain will be reported as an addendum. 10/01/2024 5:25 PM EDT [facility] at 1344 EDT Gross Description A. Stomach, Biopsy Received in formalin are multiple pieces of de la garza, soft tissue aggregating to 1.9 x 0.3 x 0.2 cm. Totally submitted in one cassette. Gross examination performed at [facility], [address] [place] [address]., [place] [address] KK September 25, 2024 6:03 PM 10/01/2024 5:25 PM EDT [facility] Performing Lab Diagnostic interpretation performed at: [facility], [address] [place] [address], Desk [place] [id number] CLIA# [id number] Shipping Processor: Ramos Strickland MD 10/01/2024 5:25 PM EDT [facility] Addendum Addendum is issued t o reflect the result of immunohistochemical stain: - Immunostain for H. pylori is negative in part A. 10/01/2024 5:25 PM EDT [facility] Addendum electronically signed by Simba Frias MD, PhD on 10/01/2024 at 1725 EDT Disclaimer Laboratory Developed Test (LDT) Disclaimer: Performance characteristics of immunohistochemical, immunofluorescent, and chromogenic in-situ hybridization tests have been determined by the performing laboratory within [facility]'s [facility] Pathology and Laboratory Medicine Department ([facility], [facility], [facility], [facility], [facility], [facility], or [facility]) in a manner consistent with CLIA requirements. One or more of these tests may not have been cleared or approved by the FDA. [facility] is regulated under CLIA as qualified to perform high-complexity testing. These tests are used for clinical purposes. These should not be regarded as investigational or for research. Positive and negative controls stain appropriately. 10/01/2024 5:25 PM EDT [facility] Tissue BIOPSY OF STOMACH / Unknown 09/25/2024 11:32 AM EDT 09/25/2024 4:32 PM EDT us Shay Dennis MD SURGICAL PATHOLOGY Edited Resul t - Final [facility] [address] [place], [place] [address] [place] [id number], [place] * EGD DIAGNOSTIC (09/25/2024 11:14 AM EDT) Anatomical Region Laterality Modality Other 09/25/2024 11:1 4 AM EDT Narrative 09/25/2024 11:52 AM EDT Q3 Patient Name: Bryan Harris Procedure Date: 09/25/2024 11:14 AM Date of : 1950 Admit Type: Outpatient Age: 74 Gender: Male Note Status: Finalized Attending MD: Shay Dennis , , [id number] Procedure: Upper GI endoscopy Indications: Dysphagia Providers: [...] by the physician, the nurse and the client account specialist in the pre-procedure area in the endoscopy [...] the patient. Procedure Code(s): --- Professional --- 94683 Diagnosis Code(s): --- Professional --- K22.4 K44.9 K31.7 R13.10 CPT copyright 2020 [employer]. All rights reserved. Attending Participation: [...] Modality Other 09/08/2024 11:0 0 AM EDT Roseann Rosario MD IMAGES Final Result * CHOLESTEROL BFL (05/18/2024 12:52 PM EST) Cholesterol, Body Fluid 30 See Comment mg/dL 05/19/2024 3:06 AM EST [facility] Comment: SYNOVIAL FLUIDS: Synovial fluid cholesterol [...] document C49-A. RAJEEV Bui: Clinical Laboratory Standards [place]; 2007. Body Fluid Type (Chol) Pleural Cavity, Right 05/19/2024 3:06 AM EST [facility] Sterile Fluid/Body Fluid PLEURAL FLUID / Unknown Non Blood / Unknown 05/18/2024 12:52 PM EST 05/18/2024 11:34 PM EST us Louise Douglas MD LABORATORY Final Result [facility] [address] [facility] [address] [place] [address], [place] * COLONOSCOPY (THERAPEUTIC) (04/28/2024 11:16 AM EST) Anatomical Region Laterality Modality Other 04/28/2024 11:1 6 AM EST Narrative 04/28/2024 11:59 AM EST [facility] Gastrointestinal Endoscopy Patient Name: Bryan Harris Procedure Date: 04/28/2024 11:16 AM Date of : 1950 Admit Type: Outpatient Age: 74 Room: [place] [address] Gender: Male Note Status: Finalized Attending MD: Vic Ponce MD, [id number] Procedure: Colonoscopy Indications: Chronic diarrhea Comorbidities Patient [...] physician, the nurse, the anesthesiologist and the client account specialist in the procedure room at 11:29 AM. [...] prior dose. Procedure Code(s): --- Professional --- 69130, Colonoscopy, flexible; with biopsy, single or multiple Diagnosis Code(s): --- Professional --- K52.9, Noninfective gastroenteritis and colitis, unspecified CPT copyright 2020 [employer]. All rights reserved. The codes documented in this report are preliminary and upon hospital coder review may be revised to meet current [...] Documents on File Type Date Recorded Patient Chief Ultrasound Technologist Expl anation Advance Directive(s) 11/12/2023 2:37 PM * Full Code (Latest Code Status on File) Date Activated Date Inactivated Comments 12/20/2023 10:18 PM 12/26/2023 9:02 PM Question Answer Comments Full Code Order Discussed With: Patient Care Teams Straight Cutter Relationship Specialty Start [place] [address] [place] [address] PCP - General Family Medicine 12/29/23 Jere Sales MD [address] [address] Referring Gastroenterology 12/05/20 Calin Gotti DO [address] [place] [address] Internal Medicine 10/16/23
--- OUTSIDE RECORDS SUMMARY | 2024-12-07 12:28 | XMS_ITS | Encounter Summary ---
Author Organization [facility] Address [address] [place] [address] Care Team Providers Care Manufacturing Plant Controller Name Role Phone Jere Sales MD Unavailable [phone] Calin Gotti DO Unavailable [phone] [place] Meyers MD Primary Care Provider [phone] Source Comments In the event this information is protected by the Federal Confidentiality of Alcohol and Drug AbusePatient Records regulations: The Federal rules restrict any use of the information to criminally investigate or prosecute any alcohol or drug abuse patient.[facility] Encounter Details Date Type Department Care Team (Late st Contact Info) Description 04/27/2024 GI Preprocedure Call [facility] [place] [address] [place] [address] Ronnie Haddad Jr., [address] [place] [address] Social History Tobacco Use Types Packs/Day Years Used Date Smoking Tobacco: Never Smokeless Tobacco: Never Alcohol Use Standard Drinks/Week Comments Yes 0 (1 standard drink = 0.6 oz pure alcohol) socially, no drink since 06/2023 [facility] Utilities Answer Date Recorded In the [...] is lower risk 5 12/11/2023 Data from: https://www.neighborhoodatlas.medicine.[facility].edu/. Last address used for calculation 2230 12/11/2023 [...] EDT [place] [address] [place] [address] [place] [address] [place] [address] Follow-up 12/16/2024 12:30 PM EDT Office Visit Vascular Surgery 5700 [facility] [place] [address] Extremity cyanosis [R23.0] 12/16/2024 2:30 PM EDT Office Visit Vascular Surgery [address] [facility] [place] [address] Extremity cyanosis [R23.0] 12/16/2024 3:30 PM EDT Office Visit Vascular Surgery 5700 [place] [address] Extremity cyanosis [R23.0] 12/22/2024 6:00 PM EDT [facility] Gastroenterology [address] [address] Araseli Wall APRN.TAPPER SUPERVISOR [address] [facility] [place] [address] Elevated alkaline phosphatase leve 05/21/2025 2:00 PM EST Office Visit Cardiology [address] [place] [address] [place] [address] [facility] [place] [address] 6 month follow up documented as of this encounter Goals Goal Patient Goal Type Associated Problems Recent Progress Patient-Stated? Author Blood Pressure < 130/80 Blood Pressure 120/74( 025 10:15 PM EDT) No Sung Hartley MD documented as of this encounter Visit Diagnoses Not on filedocumented in this encounter Care Teams Manufacturing Plant Controller Relationship Specialty [place] [address] [facility] [place] [address] PCP - General Family Medicine 12/29/23 Jere Sales MD [address] [address] Referring Gastroenterology 12/05/20 Calin Gotti DO [address] [place] [address] Internal Medicine 10/16/23 documented as of this encounter
--- OUTSIDE RECORDS SUMMARY | 2024-12-07 12:29 | XMS_ITS | Encounter Summary ---
Author Organization [facility] Address [address] [place] [address] Care Team Providers Care Full Service Vending Driver Name Role Phone Jere Sales MD Unavailable [phone] Calin Gotti DO Unavailable [phone] [place] Meyers MD Primary Care Provider [phone] Source Comments In the event this information is protected by the Federal Confidentiality of Alcohol and Drug AbusePatient Records regulations: The Federal rules restrict any use of the information to criminally investigate or prosecute any alcohol or drug abuse patient.[facility] Reason for Visit * Reason Comments Patient Question Encounter Details Date Type Department Care Team (Late st Contact Info) Description 11/17/2024 Telephone Pulmonary Medicine [address] [id number] Amanda Brooks (Pss) Patient Question Social History Tobacco Use Types Packs/Day Years Used Date Smoking Tobacco: Never Smokeless Tobacco: Never Alcohol Use Standard Drinks/Week Comments Yes 0 (1 standard drink = 0.6 oz pure alcohol) socially, no drink since 06/2023 [facility] Utilities Answer Date Recorded In the [...] is lower risk 5 12/11/2023 Data from: https://www.neighborhoodatlas.medicine.[facility].edu/. Last address used for calculation 2230 [...] with physician. She can be reached at [phone] She asked if a detailed voicemail can be left if somehow she misses the call documented in this encounter Plan of Treatment Upcoming Encounters Date Type Department Care Team (Late st Contact Info) Description 12/15/2024 11:15 AM EDT [place] [address] [place] [address] [place] [address] [facility] [place] [address] Follow-up 12/16/2024 12:30 PM EDT Office Visit Vascular Surgery 5700 [place] [address] Extremity cyanosis [R23.0] 12/16/2024 2:30 PM EDT Office Visit Vascular Surgery 57[address] [place] [address] Extremity cyanosis [R23.0] 12/16/2024 3:30 PM EDT Office Visit Vascular Surgery 5700 [place] [address] Extremity cyanosis [R23.0] 12/22/2024 6:00 PM EDT [facility] Gastroenterology [address] [place] [address] Araseli Wall APRN.INSULATION INSTALLER [address] [place] [address] Elevated alkaline phosphatase leve 05/21/2025 2:00 PM EST Office Visit Cardiology [address] [place] [address] [place] [address] [facility] [place] [address] 6 month follow up documented as of this encounter Goals Goal Patient Goal Type Associated Problems Recent Progress Patient-Stated? Author Blood Pressure < 130/80 Blood Pressure 120/74( 025 10:15 PM EDT) No Sung Hartley MD documented as of this encounter Visit Diagnoses Not on filedocumented in this encounter Care Teams Full Service Vending Driver Relationship Specialty Start [place] [address] [place] [address] PCP - General Family Medicine 12/29/23 Jere Sales MD [address] [address] Referring Gastroenterology 12/05/20 Calin Gotti DO [facility] [place] [address] Internal Medicine 10/16/23 documented as of this encounter
--- OUTSIDE RECORDS SUMMARY | 2024-12-07 12:29 | XMS_ITS | Encounter Summary ---
Author Organization [facility] Address [address] [place] [address] Care Team Providers Care Computer Aide Name Role Phone Jere Sales MD Unavailable [phone] Calin Gotti DO Unavailable [phone] [place] Meyers MD Primary Care Provider [phone] Source Comments In the event this information is protected by the Federal Confidentiality of Alcohol and Drug AbusePatient Records regulations: The Federal rules restrict any use of the information to criminally investigate or prosecute any alcohol or drug abuse patient.[facility] Encounter Details Date Type Department Care Team (Late st Contact Info) Description 11/12/2024 Get Medical Advice Gastroenterology [address] [address] Provider, Migel Harris 1950 Social History Tobacco Use Types Packs/Day Years Used Date Smoking Tobacco: Never Smokeless Tobacco: Never Alcohol Use Standard Drinks/Week Comments Yes 0 (1 standard drink = 0.6 oz pure alcohol) socially, no drink since 06/2023 [facility] Utilities Answer Date Recorded In the [...] Assessment Author No 12/26/2023 4:30 PM EDT rOlando Welsh RN documented as of this encounter [...] EDT [place] [address] [place] [address] [place] [address] [place] [address] Follow-up 12/16/2024 12:30 PM EDT Office Visit Vascular Surgery 5700 [place] [address] Extremity cyanosis [R23.0] 12/16/2024 2:30 PM EDT Office Visit Vascular Surgery [address]00 [place] [address] Extremity cyanosis [R23.0] 12/16/2024 3:30 PM EDT Office Visit Vascular Surgery 57[address] [place] [address] Extremity cyanosis [R23.0] 12/22/2024 6:00 PM EDT [facility] Gastroenterology [address] [address] Araseli Wall APRN.ORGANIZATIONAL DEVELOPMENT MANAGER [address] [facility] [place] [address] Elevated alkaline phosphatase leve 05/21/2025 2:00 PM EST Office Visit Cardiology [address] [place] [address] [place] [address] [facility] [place] [address] 6 month follow up documented as of this encounter Goals Goal Patient Goal Type Associated Problems Recent Progress Patient-Stated? Author Blood Pressure < 130/80 Blood Pressure 120/74( 025 10:15 PM EDT) No Sung Hartley MD documented as of this encounter Visit Diagnoses Not on filedocumented in this encounter Care Teams Computer Aide Relationship Specialty Start [place] [address] [facility] [address] PCP - General Family Medicine 12/29/23 Jere Sales MD [address] [address] Referring Gastroenterology 12/05/20 Calin Gotti DO [address] [place] [address] Internal Medicine 10/16/23 documented as of this encounter
--- OUTSIDE RECORDS SUMMARY | 2024-12-07 12:29 | XMS_ITS | Encounter Summary ---
Author Organization [facility] Address [address] [place] [address] Care Team Providers Care Customs Collector Name Role Phone Jere Sales MD Unavailable [phone] Calin Gotti DO Unavailable [phone] Jose [place] Meyers MD Primary Care Provider [phone] Source Comments In the event this information is protected by the Federal Confidentiality of Alcohol and Drug AbusePatient Records regulations: The Federal rules restrict any use of the information to criminally investigate or prosecute any alcohol or drug abuse patient.[facility] Encounter Details Date Type Department Care Team (Late st Contact Info) Description 04/24/2024 Get Medical Advice Rheumatology [address] [place] [id number] Jailyn Mahoney MD 9500 [place] [address] Willie Harris Social History Tobacco Use Types Packs/Day Years Used Date Smoking Tobacco: Never Smokeless Tobacco: Never Alcohol Use Standard Drinks/Week Comments Yes 0 (1 standard drink = 0.6 oz pure alcohol) socially, no drink since 06/[address] [facility] Utilities Answer Date Recorded In [...] is lower risk 5 12/11/2023 Data from: https://www.neighborhoodatlas.medicine.[facility].edu/. Last address used for calculation [...] EDT [place] [address] [place] [address] [place] [address] [place] [address] Follow-up 12/16/2024 12:30 PM EDT Office Visit Vascular Surgery 5700 [facility] [place] [address] Extremity cyanosis [R23.0] 12/16/2024 2:30 PM EDT Office Visit Vascular Surgery 5700 [facility] [place] [address] Extremity cyanosis [R23.0] 12/16/2024 3:30 PM EDT Office Visit Vascular Surgery 5700 [place] [address] Extremity cyanosis [R23.0] 12/22/2024 6:00 PM EDT [facility] Gastroenterology [address] [address] Araseli Wall APRN.CIRCULAR HEAD SAW OPERATOR [address] [place] [address] Elevated alkaline phosphatase leve 05/21/2025 2:00 PM EST Office Visit Cardiology [address] [place] [address] [place] [address] [facility] [place] [address] 6 month follow up documented as of this encounter Goals Goal Patient Goal Type Associated Problems Recent Progress Patient-Stated? Author Blood Pressure < 130/80 Blood Pressure 120/74( 025 10:15 PM EDT) No Sung Hartley MD documented as of this encounter Visit Diagnoses Diagnosis Hypokalemia- Primary Hypopotassemia documented in this encounter Care Teams Customs Collector Relationship Specialty Start [place] [address] [facility] [place] [address] PCP - General Family Medicine 12/29/23 Jere Sales MD [address] [address] Referring Gastroenterology 12/05/20 Calin Gotti DO [address] [place] [address] Internal Medicine 10/16/23 documented as of this encounter
--- OUTSIDE RECORDS SUMMARY | 2024-12-07 12:29 | XMS_ITS | Encounter Summary ---
Author Organization [facility] Address [address] [place] [address] Care Team Providers Care Tap Dancer Name Role Phone Jere Sales MD Unavailable [phone] Calin Gotti DO Unavailable [phone] [place] Meyers MD Primary Care Provider [phone] Source Comments In the event this information is protected by the Federal Confidentiality of Alcohol and Drug AbusePatient Records regulations: The Federal rules restrict any use of the information to criminally investigate or prosecute any alcohol or drug abuse patient.[facility] Encounter Details Date Type Department Care Team (Late st Contact Info) Description 11/13/2024 Get Medical Advice Gastroenterology [address] [address] Provider, Migel Harris. 1950 Social History Tobacco Use Types Packs/Day Years Used Date Smoking Tobacco: Never Smokeless Tobacco: Never Alcohol Use Standard Drinks/Week Comments Yes 0 (1 standard drink = 0.6 oz pure alcohol) socially, no drink since 06/2023 [facility] Utilities Answer Date Recorded In the past [...] is lower risk 5 12/11/2023 Data from: https://www.neighborhoodatlas.medicine.[facility].edu/. Last address used for calculation [...] EDT [place] [address] [place] [address] [place] [address] [place] [address] Follow-up 12/16/2024 12:30 PM EDT Office Visit Vascular Surgery [address]00 [place] [address] Extremity cyanosis [R23.0] 12/16/2024 2:30 PM EDT Office Visit Vascular Surgery 5700 [facility] [place] [address] Extremity cyanosis [R23.0] 12/16/2024 3:30 PM EDT Office Visit Vascular Surgery 5700 [place] [address] Extremity cyanosis [R23.0] 12/22/2024 6:00 PM EDT [facility] Gastroenterology [address] [address] Araseli Wall APRN.CAMERA CONTROL OPERATOR [address] [facility] [place] [address] Elevated alkaline phosphatase leve 05/21/2025 2:00 PM EST Office Visit Cardiology [address] [place] [address] [place] [address] [place] [address] 6 month follow up documented as of this encounter Goals Goal Patient Goal Type Associated Problems Recent Progress Patient-Stated? Author Blood Pressure < 130/80 Blood Pressure 120/74( 025 10:15 PM EDT) No Sung Hartley MD documented as of this encounter Visit Diagnoses Not on filedocumented in this encounter Care Teams Tap Dancer Relationship Specialty Start [place] [address] [facility] [place] [address] PCP - General Family Medicine 12/29/23 Jere Sales MD [address] [address] Referring Gastroenterology 12/05/20 Calin Gotti DO [address] [place] [address] Internal Medicine 10/16/23 documented as of this encounter
--- OUTSIDE RECORDS SUMMARY | 2024-12-07 12:29 | XMS_ITS | Encounter Summary ---
Author Organization [facility] Address [address] [place] [address] Care Team Providers Care Trading Analyst Name Role Phone Jere Sales MD Unavailable [phone] Calin Gotti DO Unavailable [phone] Jose Antonio Meyers MD Primary Care Provider [phone] Source Comments In the event this information is protected by the Federal Confidentiality of Alcohol and Drug AbusePatient Records regulations: The Federal rules restrict any use of the information to criminally investigate or prosecute any alcohol or drug abuse patient.[facility] Encounter Details Date Type Department Care Team (Late st Contact Info) Description 11/17/2024 Patient Msg [facility] [address] [place], [place] [id number] Provider, [facility] ER Follow Up Appointment Social History Tobacco Use Types Packs/Day Years Used Date Smoking Tobacco: Never Smokeless Tobacco: Never Alcohol Use Standard Drinks/Week Comments Yes 0 (1 standard drink = 0.6 oz pure alcohol) socially, no drink since 06/2023 [facility] Utilities Answer Date Recorded In [...] place to sleep or slept in a assisted (including now)? No 11/21/2023 Area Deprivation Index Answer Date Hari rded National Score (1-100), lower number is lower ri sk 68 12/11/2023 State Score (1-10), lower number is lower risk 5 12/11/2023 Data from: https://www.neighborhoodatlas.medicine.[facility].edu/. Last address used for calculation 2230 [...] EDT [place] [address] [place] [address] [place] [address] [place] [address] Follow-up 12/16/2024 12:30 PM EDT Office Visit Vascular Surgery [address] [place] [address] Extremity cyanosis [R23.0] 12/16/2024 2:30 PM EDT Office Visit [facility] [address] [facility] [place] [address] Extremity cyanosis [R23.0] 12/16/2024 3:30 PM EDT Office Visit Vascular Surgery [address] [place] [address] Extremity cyanosis [R23.0] 12/22/2024 6:00 PM EDT [facility] Gastroenterology [address] [address] Araseli Wall APRN.MANAGER PRODUCE [address] [place] [address] Elevated alkaline phosphatase leve 05/21/2025 2:00 PM EST Office Visit Cardiology [address] [place] [address] [place] [address] [facility] [place] [address] 6 month follow up documented as of this encounter Goals Goal Patient Goal Type Associated Problems Recent Progress Patient-Stated? Author Blood Pressure < 130/80 Blood Pressure 120/74( 025 10:15 PM EDT) No Sung Hartley MD documented as of this encounter Visit Diagnoses Not on filedocumented in this encounter Care Teams Trading Analyst Relationship Specialty Start [place] [address] [facility] [place] [address] PCP - General Family Medicine 12/29/23 Jere Sales MD [address] [address] Referring Gastroenterology 12/05/20 Calin Gotti DO [address] [place] [address] Internal Medicine 10/16/23 documented as of this encounter
--- OUTSIDE RECORDS SUMMARY | 2024-12-07 12:29 | XMS_ITS | Encounter Summary ---
Author Organization [facility] Address [address] [place] [address] Care Team Providers Care R And D Lab Technician Name Role Phone Jere Sales MD Unavailable [phone] Calin Gotti DO Unavailable [phone] Jose Antonio Meyers MD Primary Care Provider [phone] Source Comments In the event this information is protected by the Federal Confidentiality of Alcohol and Drug AbusePatient Records regulations: The Federal rules restrict any use of the information to criminally investigate or prosecute any alcohol or drug abuse patient.[facility] Encounter Details Date Type Department Care Team (Late st Contact Info) Description 10/31/2024 Results Follow-Up Gastroenterology [address] [address] Xiomara Santoyo APRN.[place] [address]270 [place] [address] Social History Tobacco Use Types Packs/Day Years Used Date Smoking Tobacco: Never Smokeless Tobacco: Never Alcohol Use Standard Drinks/Week Comments Yes 0 (1 standard drink = 0.6 oz pure alcohol) socially, no drink since 06/2023 [facility] Utilities Answer Date Recorded In [...] is lower risk 5 12/11/2023 Data from: https://www.neighborhoodatlas.medicine.[facility].edu/. Last address used for calculation [address] [...] EDT [place] [address] [place] [address] [place] [address] [place] [address] Follow-up 12/16/2024 12:30 PM EDT Office Visit Vascular Surgery 57[address] [facility] [place] [address] Extremity cyanosis [R23.0] 12/16/2024 2:30 PM EDT Office Visit Vascular Surgery 5700 [facility] [place] [address] Extremity cyanosis [R23.0] 12/16/2024 3:30 PM EDT Office Visit Vascular Surgery [address] [place] [address] Extremity cyanosis [R23.0] 12/22/2024 6:00 PM EDT [facility] Gastroenterology [address] [address] Araseli Wall APRN.SCHEDULE ANALYST [address] [place] [address] Elevated alkaline phosphatase leve 05/21/2025 2:00 PM EST Office Visit Cardiology [address] [place] [address] [place] [address] [facility] [place] [address] 6 month follow up documented as of this encounter Goals Goal Patient Goal Type Associated Problems Recent Progress Patient-Stated? Author Blood Pressure < 130/80 Blood Pressure 120/74( 025 10:15 PM EDT) No Sung Hartley MD documented as of this encounter Visit Diagnoses Not on filedocumented in this encounter Care Teams R And D Lab Technician Relationship Specialty Start [place] [address] [facility] [place] [address] PCP - General Family Medicine 12/29/23 Jere Sales MD [address] [address] Referring Gastroenterology 12/05/20 Calin Gotti DO [address] [place] [address] Internal Medicine 10/16/23 documented as of this encounter
[2024-12-07 12:45] LABS: Basophils Percent Auto 0.3 % (0.2-2.0); Hematocrit 34.5 % (42.0-54.0); Hemoglobin 11.3 g/dL (14.0-18.0); Immature Granulocytes Abs Auto 0.13 10^3/uL (0.00-0.03); Immature Granulocytes Pct Auto 1.3 % (0.0-0.5); Lymphocytes Absolute Auto 1.1 10^3/uL (1.2-3.8); Lymphocytes Percent Auto 11.4 % (20.5-60.0); Mean Corpuscular HGB Conc 32.8 g/dL (29.9-35.2); Mean Corpuscular Hemoglobin 32.8 pg (25.9-34.0); Monocytes Percent Auto 10.3 % (1.7-12.0); Neutrophils Absolute Auto 7.5 10^3/uL (1.4-6.5); Neutrophils Percent Auto 76.7 % (43.0-75.0); Platelet Count 180 10^3/uL (150-450); Red Blood Count 3.45 10^6/uL (4.70-6.10); Red Cell Distribution Width 17.1 % (11.0-15.0); White Blood Count 9.7 10^3/uL (4.0-11.0)
[2024-12-07 13:16] LABS: Alanine Aminotransferase 45 U/L (16-63); Albumin Globulin Ratio 0.8; Albumin Level 3.2 g/dL (3.4-5.0); Alkaline Phosphatase 111 U/L (46-116); Anion Gap 10.2; Aspartate Amino Transferase 20 U/L (15-37); BUN Creatinine Ratio 32.9; Bilirubin Total 0.8 mg/dL (0.2-1.0); Calcium 9.2 mg/dL (8.5-10.1); Carbon Dioxide 34.9 mmol/L (21.0-32.0); Chloride 101 mmol/L (98-107); Estimated GFR (African America 54 (>=60 mL/min/1.73m^2); Estimated GFR (Non-African Ame 44 (>=60 mL/min/1.73m^2); Glucose 97 mg/dL (74-106); Magnesium 1.9 mg/dL (1.8-2.4); Potassium 3.1 mmol/L (3.5-5.1); Sodium 143 mmol/L (136-145); Total Protein 7.2 g/dL (6.4-8.2)
== END 2024-12-07 12:23 | disposition home or self-care (01) ==
LOC: LAB 12:24
PROVIDERS: PCP Internal Medicine; Visit Provider Internal Medicine
DX: D64.9 Anemia, unspecified (principal); N18.9 Chronic kidney disease, unspecified; I10 Essential (primary) hypertension; E83.42 Hypomagnesemia
CPT/HCPCS: 36415; 80053; 83735; 85025

== ENCOUNTER 2024-12-11 11:08 | Outpatient (OUT) | payer MEDICARE, SELFPAY ==
--- OUTSIDE RECORDS SUMMARY | 2024-01-15 05:00 | XMS_ITS ---
Author Organization The [facility] in [place] Address [address] [place] [address] Care Team Providers Care Personnel Analyst Name Role Phone Kelechi Dawit MATA Primary Care Provider Calin Espino Unavailable [phone] Allergies Allergen (clinical drug ingredient) Drug/Non Drug [...] Encounter Location Date Provider Diagnosis Pulmonary Medicine [place] [address] [place] [address] 01/15/2024 Calin Gotti Chronic cough R05.3 ; [...] drained Saturday. He has seen rheumatology at [facility] and they have not been able to determine a cause. Cytology/patholog y have returned negative for malignancy. I am not of much assistance here at [facility] given our small size. Other thought would be infectious disease. Could also consider checking cytology yet again, but if this really were malignant, overall yield with repeated thoracenteses only approaches roughly 70% of the time for positive diagnosis of malignant effusion. I suggest patient follow-up with [facility] pulmonary for second opinion. Patient states [...] drained Saturday. He has seen rheumatology at [facility] and they have not been able to determine a cause. Cytology/pathology have returned negative for malignancy. I am not of much assistance here at [facility] given our small size. Other thought would be infectious disease. Could also consider checking cytology yet again, but if this really were malignant, overall yield with repeated thoracenteses only approaches roughly 70% of the time for positive diagnosis of malignant effusion. I suggest patient follow-up with [facility] pulmonary for second opinion. Patient states [...] Bryan HARRIS EDOB:[birth year] (73 yo M)Acc No.[id number]:01/15/2024 Follow Up Patient: Bryan DIXON Provider: Shahzad Gotti DO :1950 A ge:73 Y S ex:Male Date:01/15/2024 Address:[address] [place] [address] [facility], [id number] Pcp:Dawit Lorenz, Check In:08:52 AM ESTCheck O ut:09:39 AM EST Subjective: * Chief Complaints: * 3 MO-PLEURAL EFFUSION * HPI: G eneral: 3 MONTH F/U Patient went to [facility]. He had a thoracostomy done on 11/20/2023. Cytology/pathology all returned negative for malignancy. The pleural fluid has not decreased in production; he then required insertion of a Pleurx catheter. Several months later, he continues to have approximately 500 mL of pleural fluid drained on a Saturday basis. He has seen rheumatology there who have not been able to identify a cause. [facility] was attempting to set them up with their own government relations analyst; the initial date was 6 months from now, but it has been moved up several months. Every attempt to get a pulmonary function test in the past failed due to issues with fluid accumulation. He voiced he would prefer to get a PFT done here at [facility]. I reviewed multiple records from [facility] today. Patient's main complaint today is [...] recently had a Right Thoracoscopy performed at [facility] by . Patient complains of Chronic Cough with vomiting. Patient states he was seen by [facility] Pulmonary & Rheumatology (). Patient [...] (90 Base) MCG/ACT Aerosol Solution Inhalation Breztri Aerosphere(Tulyihm-Dcaeqbjtbqf-Bkdkeeucxq) 160/9/4.8 mcg aerosol 2 puffs inhalation BID Breztri Aerosphere(Ejgxatg-Texjwwzwxdx-Noxwurbmgb) 160/9/4.8 mcg aerosol 2 puffs inhalation BID EQ Space Chamber Anti-Static(Spacer/Aero-Holding Chambers) - Device Losartan Potassium 25 MG Tablet TAKE 1 TABLET BY MOUTH ONCE DAILY Oral Medication List reviewed and reconciled with the patientNot-Taking/PRN Albuterol Sulfate HFA 108 (90 Base) MCG/ACT Aerosol Solution Inhalation Not-Taking/PRN Breztri Aerosphere(Ohohjmy-Xndmpxzdgjz-Zsyzqgxxgd) 160/9/4.8 mcg aerosol 2 puffs inhalation BID Not-Taking/PRN Breztri Aerosphere(Gggjzxx-Oqqsjpisodb-Ympzuhnlwy) 160/9/4.8 mcg aerosol 2 puffs inhalation BID [...] Reason: D rug declined by patient B DC ACTION PLAN Above Normal BMI Follow-up D ietary management education, guidance, and counseling * Follow Up: 6 Months (Reason: Pleural effusion) * * Sign off status: Completed Visit Status: C HK (Check Out) true * Provider: Shahzad Gotti DO Date: 0 01/15/2024 Generated for Madeleine rehman/Alfredo/eTransmitting on: 0 12/11/2024 11:14 AM EDT History and Physical Notes * HPI (History of Present Illness) Category Sub-Category Detail Notes Category Not es General Patient present s for a follow-up for Pleural Effusion. Patient recently had a Right Thoracoscopy performed at [facility] by . Patient complains of Chronic Cough with vomiting. Patient states he was seen by [facility] Pulmonary & Rheumatology (). Patient is also under the care of . Patient currently has a drain tube currently placed and is being drained Saturday, Saturday & Fridays. Patient is not currently using any inhaler at this time. Examination Category Sub-Category Detail Notes Category Not es Exam GENERAL APPEARANCE: No significant coughi ng today Skin Normal Mouth Sweetser and moist. No o ral candidiasis Trachea [...]
--- OUTSIDE RECORDS SUMMARY | 2024-01-20 07:32 | XMS_ITS ---
Author Organization [facility] in [place] Address [address] [place] [address] Care Team Providers Care Button Attaching Machine Operator Name Role Phone Dawit Lorenz DO Primary Care Provider Calin Espino [phone] REASON FOR VISIT Willie Encounters Encounter Location Date Provider Diagnosis Pulmonary Medicine [place] [address] [place] [address] 01/20/2024 Calin Gotti Plan Of Treatment No Information Progress Notes * Bryan HARRIS EDOB:[birth year] (73 yo M)Acc No.[id number]:01/20/2024 Patient: Reinaldo DUNLAPBryan :1950 A ge:73 Y S ex:Male Address:[facility] [place] [address], [address] * Addendum: * true * Date: Generated for Printi ng/Fadhirajg/eTransmitting on: 0 12/11/2024 11:15 AM EDT
--- OUTSIDE RECORDS SUMMARY | 2024-07-20 18:00 | XMS_ITS | Encounter Summary ---
Author Organization [facility] Address [address] [place], [place] [id number] Care Team Providers Care Precision Instrument And Tool Maker Name Role Phone Jere Sales MD Unavailable [phone] Calin Gotti DO Unavailable [phone] Jose Antonio Meyers MD Primary Care Provider [phone] Source Comments In the event this information is protected by the Federal Confidentiality of Alcohol and Drug AbusePatient Records regulations: The Federal rules restrict any use of the information to criminally investigate or prosecute any alcohol or drug abuse patient.[facility] Reason for Visit * Auth/Cert (Routine) Specialty Diagnoses / Procedures Referred By Contac t Referred To Contact ADMITTING Diagnoses 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] Procedures [facility] INCL FLUOR GDNCE DX W/CELL WASHG SPX BRONCHOSCOPY FLEXIBLE ADULT Admitting [address] [place] [address] Referral ID Status Reason Start Date Expiration Date Visits Re quested Visits Authorized [id number] 1 1 Encounter Details Date Type Department Care Team (Latest Contact Info) Description 07/20/2024 5:00 PM [facility] Hospital Encounter Admitting [address] [address] Bryn Andrea MD [address] [place] [address] 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 No 11/21/2023 Area Deprivation Index Answer Date Hari rded National Score (1-100), lower number is lower ri 68 12/11/2023 State Score (1-10), lower number is lower risk 5 12/11/2023 Data from: https://www.neighborhoodatlas.[facility]/. Last address used for calculation [address] [...] Outpatient PROCEDURE: Right Thoracentesis with Ultrasound guidance SUPERVISOR PROP MAKING: Roseann London MD PREPARER MAKING DEPARTMENT: Reza Thompson (resident), REFERRING PHYSICIAN/SERVICE Dr. Riggs [...] a teaching physician. Roseann Rosario MD Pager [phone] September 08, 2024 12:45 PM documented in this encounter Plan of Treatment Upcoming Encounters Date Type Department Care Team (Late st Contact Info) Description 12/15/2024 11:15 AM EDT [place] [address] [place] [address] [place] [address] [place] [address] Follow-up 12/16/2024 12:30 PM EDT Office Visit Vascular Surgery [address] [place] [address] Extremity cyanosis [R23.0] 12/16/2024 3:30 PM EDT Office Visit Vascular Surgery [address] [place] [address] Extremity cyanosis [R23.0] 12/22/2024 6:00 PM EDT [facility] Gastroenterology [address] [address] Araseli Wall APRN.VETERINARY MEDICINE TEACHER [address] [place] [address] Elevated alkaline phosphatase leve 01/08/2025 1:00 PM EDT Appointment Radiology [address] [place] [address] [place] [address] XR CHEST 2V FRONTAL/LAT 01/11/2025 9:30 AM EDT Office Visit Pulmonary Medicine [address] [place] [address] Triston Riggs MD [address] [place] [address] 4-6 weeks 05/21/2025 2:00 PM EST Office Visit Cardiology [address] [place] [address] [place] [address] [place] [address] 6 month follow up documented as of [...] Routine 07/20/2024 1:30 PM EST Pleural effusion [facility] INCL FLUOR GDNCE DX W/CELL WASHG SPX 07/20/2024 12:00 PM EST Bronchiolar disease documented in this encounter Results * PROTEIN, BODY FLUID (07/20/2024 1:30 PM EST) Protein, Body Fluid 2.2 See Comment g/dL 07/20/2024 6:39 PM EST [facility] Comment: Serous fluids: Effusions are the [...] document C49A. RAJEEV Bui: Clinical Laboratory Standards [place]: 2007. Fluid, Thoracentesis PLEURAL FLUID / Unknown 07/20/2024 1:30 PM EST 07/20/2024 5:01 PM EST us Bryn Andrea MD LABORATORY Final Result [facility] [address] [facility] Desk [address] [address], [place] * LACTATE DEHYDROGENASE, BODY FLUID (07/20/2024 1:30 PM EST) LD,Body Fluid 167 See Comment U/L 07/20/2024 6:39 PM EST [facility] Comment: Pleural fluids: Pleural fluid lactate [...] document C49A. RAJEEV Bui: Clinical Laboratory Standards [place]: 2007. Reference: 2. Rafael STARK, Fei Doyle. Body fluid analysis: clinical utility and applicability of published studies to guide interpretation of today's laboratory testing in serous fluids. Crit Rev Clin Lab Sci, 2013:50(4,5):107 to 124. Reference: 3. Flaca M, Dougie A, [place] STARK. Lactate dehydrogenase activity and its isoenzymes in serum and synovial fluid of patients with rheumatoid arthritis and osteoarthritis. J Rheumatol. 1992:19:529 to 533. Fluid, Thoracentesis PLEURAL FLUID / Unknown 07/20/2024 1:30 PM EST 07/20/2024 5:01 PM EST us Bryn Andrea MD LABORATORY Final Result [facility] [address] [address], [place] * ALBUMIN, BODY FLUID (07/20/2024 1:30 PM EST) Albumin, Body Fluid 1.4 See Comment g/dL 07/20/2024 6:39 PM EST [facility] Comment: Body Fluid Albumin may be [...] document C49A. RAJEEV Bui: Clinical Laboratory Standards [place]: 2007. 2. Dionicio SERNA. Serum to ascites albumin gradient. UpToDate. 2015. Accessed on September 28, 2015. Body Fluid Type (Albumin) Pleural Cavity, Right 07/20/2024 6:39 PM EST [facility] Comment:recurrent pleual eff usion on right Fluid, Thoracentesis PLEURAL FLUID / Unknown 07/20/2024 1:30 PM EST 07/20/2024 5:01 PM EST us Bryn Andrea MD LABORATORY Final Result [facility] [address] [facility] Desk [address] [place] [address], documented in this encounter Visit Diagnoses Diagnosis Pleural effusion Unspecified pleural effusion documented in this encounter Care Teams Precision Instrument And Tool Maker Relationship Specialty Start [place] [address] [place] [address] PCP - General Family Medicine 12/29/23 Jere Sales MD [address] [address] Referring Gastroenterology 12/05/20 Calin Gotti DO [address] [place] [address] Internal Medicine 10/16/23 documented as of this encounter
--- OUTSIDE RECORDS SUMMARY | 2024-07-21 05:30 | XMS_ITS ---
Author Organization The [facility] in [place] Address [address] [place] [address] Care Team Providers Care Metallurgical Engineering Technician Name Role Phone Dawit Lorenz DO Primary Care Provider Tasneem fernandez Shila Gottihan Unavailable [phone] Allergies Allergen (clinical drug ingredient) Drug/Non Drug Allergy documented on EMR Reaction Allergy Type Onset Date Status tramadol Tramadol Hallucinations Drug Allergy Ac tive REASON FOR VISIT 6MO-PLEURAL EFFUSION Medications Medication SIG (Take, Route, Frequency, Duration) Notes Start Date End Date Status MAGnesium-Oxide 400 (240 Mg) MG TAKE 1 TABLET BY MOUTH TWICE DAILY Oral for 30 Days Active Potassium Chloride Khloe ER 20 MEQ Oral for 30 Days Active Torsemide 100 MG Oral for 90 Days Active Multi Complete - as directed Orally Active Omeprazole 20 MG Oral for 90 Days Active Calcium 500 MG 1 tablet with meals Orally Twice a day Active Claritin 10 MG 1 tablet Orally Once a day Active Budesonide 3 MG TAKE 3 CAPSULES BY M OUTH ONCE DAILY FOR 60 DAYS THEN 2 CAPSULES ONCE DAILY FOR 15 DAYS THEN 1 CAPSULE ONCE DAILY FOR 7 DAYS Oral for 82 Days Active guaiFENesin-Codeine 100-10 MG/5ML TAKE 10 ML BY MOUTH EVERY 6 HOURS NEEDED FOR COUGH FOR 7 DAYS Oral for 7 Days Active Furosemide 40 MG TAKE 1 TABLET BY CRISTI TH ONCE DAILY AT 2 PM Oral for 30 Days Active Atorvastatin Calcium 10 MG Oral for 90 Days Active Allopurinol 300 MG Oral for 90 Days Active Aspirin 81 MG 1 tablet Orally Once a day Active Zinc 30 MG 1 tablet Orally Once a day Active Social History Tobacco Use: Social History Observation Description Date Details (start date - stop date) Never Smoker NA - NA Tobacco Control (Standard) Question Answer Notes Tobacco use: Nonsmoker Vital Signs Weight 196.4 lbs 07/21/2024 Height 72 in 07/21/2024 Blood pressure systolic 113 mm Hg 07/21/19 25 Blood pressure diastolic 73 mm Hg 025 Temperature 97.0 degrees Fahrenheit 07/21/19 25 Heart Rate 83 /min 07/21/2024 Respiratory Rate 18 /min 07/21/2024 BMI 26.63 kg/m2 07/21/2024 Oximetry 96.8 % 07/21/2024 Encounters Encounter Location Date Provider Diagnosis Pulmonary Medicine [place] [address] [place] [address] 07/21/2024 Calin Gotti Pleural effusion J90 Assessments Encounter Date Diagnosis (ICD Code) Assessment Notes Treatment Notes Treatment Clinical Notes Section Notes 07/21/2024 Pleural effusion (ICD-10 - J90) Chronic right pleural effusion. Not even [facility] can figure out what the cause of the effusion is. He still has a Pleurx catheter is draining what appears to be approximately 100 mL/day. asked if I could drain it for them today; I stated that my office is not equipped to perform this task. They are looking into talc poudrage vs. other alternatives. The only other option I am able to offer would be referral to [facility] in [place], [place] for a third opinion. At this time, I am not contributing anything additional to his therapy. He will follow-up as needed. 07/21/2024 Other Plan Of Treatment Treatment Notes Assessment Notes Pleural effusion Chronic right pleural effusion. Not even [facility] can figure out what the cause of the effusion is. He still has a Pleurx catheter is draining what appears to be approximately 100 mL/day. asked if I could drain it for them today; I stated that my office is not equipped to perform this task. They are looking into talc poudrage vs. other alternatives. The only other option I am able to offer would be referral to [facility] in [place], [place] for a third opinion. At this time, I am not contributing anything additional to his therapy. He will follow-up as needed. Next Appt Details Follow Up: PRN, Reason: Progress Notes * Bryan HARRIS EDOB:[birth year] (74 yo M)Acc No.[id number]:07/21/2024 Follow Up Patient: Bryan DIXON Provider: Shahzad Gotti DO :1950 A ge:74 Y S ex:Male Date:07/21/2024 Address:[address] [place] [address] , [facility], [id number] Pcp:Dawit Lorenz, Check In:08:58 AM ESTCheck O ut:10:10 AM EST Subjective: * Chief Complaints: * 6 MO-PLEURAL EFFUSION * HPI: G eneral: Patient was last seen 01/15/2024. The last communication regarding the patient was from a Dr. Meyers from [facility], a PCP who was coordinating care between [facility] specialists. He expressed concern about vasculitis; the patient was to see [facility] rheumatology. Other than this, we have received no further communications from [facility] regarding the patient's care. Last visit, the patient had a right-sided Pleurx catheter. Cynthia garcía still has the Pleurx catheter in. He is now being seen by Dr. Triston Riggs, pulmonogist @ [facility]. He has seen multiple other pulmonologists @ [facility]. None still have an exact clue for the answer. He is curently on a program to have it drained daily and it appears to be averaging ~ 100mL/day according to the numbers provided. There are discussion for potential pleuridesis. He has been worked up by GI - he has a lower esophageal stricture attributed to chronic Prilosec use; and lymphocytic colitis - started on budesonide. Rheumatological testing has been negative so far, so rheumatology has somewhat stepped back. MA Intake Comments: Patient presents for a follow-up. Patient is under the care of [facility] Specialist. Patient reports being drained daily by home health. Patient denies any SOB or Cough today. Patient is currently on Steroid. Patient is not using Breztri at this time. Patient's spouse is asking if or nursing would be able to drain him today as they have to leave our office for another appointment out of town. Patient recently finished a Z-Tanner on Saturday. * ROS: G eneral/Constitutional: Fatigue a dmits. F ever or sweats d enies. C hange of appetite d iminished. C hills d enies. H EENT: Dry mouth d enies. S ore throat d enies. O ral Ulcers d enies. P ost Nasal Drip D enies. C ongestion D enies. H oarseness?Denies. C ardiovascular: Tachycardia d enies. C hest pain d enies. P alpitations d enies. R espiratory: Chest tightness d enies. P leurisy D enies. D yspnea d enies. C ough R esolved. H emoptysis d enies. W heezing d enies. G astrointestinal: Acid Reflux/GERD/Heartburn d enies. D ysphagia d enies. M usculoskeletal: Arthralgias/joint pain D enies. S kin: Easy bruising d enies. N eurologic: Dizziness/Lightheadedness d enies. S eizures d enies. T remor d enies. H ematology: Abnormal Bleeding d enies. P sychiatric: Anxiety d enies. * Active Problem List R70.0 Elevated erythrocyte sedimentation rate Modified On:09/25/2023W/U Status:confirmed I25.10 CAD (coronary artery disease) Modified On:09/11/2023W/U Status:confirmed J90 Pleural effusion Modified On:09/25/2023/U Status:confirmed R91.8 Multiple pulmonary n odules Modified On:09/25/2023/U Status:confirmed I89.8 Calcified lymph node s Modified On:09/25/2023/U Status:confirmed I31.39 Pericardial effusion Modified On:09/25/2023/U Status:confirmed * Medical History: * Surgical History: E GD 1Right TKA 06/25/2016Left TKA 08/23/2014Thoracentesis-09/04/2023 & 10/01/2023 Right Thoracoscopy/PleurX Catheter placement-[facility] 11/20/2023 * Hospitalization/Major Diagno stic Procedure: S welling/Edema-[facility] 12/20/2023 * Family History: B rother(s): Hypercholesterolemia. F ather: diagnosed with Unspecified heart disease. P aternal Grandfather: diagnosed with Unspecified heart disease. M aternal Grandfather: diagnosed with Unspecified heart disease. * Social History: T obacco Use: T obacco Control (Standard) T obacco use: N onsmoker Electronic Cigarette use C urrent user N o M iscellaneous: O ccupation O ccupation: R [...] day Atorvastatin Calcium 10 MG Tablet Oral Budesonide 3 MG Capsule Delayed Release Particles TAKE 3 CAPSULES BY MOUTH ONCE DAILY FOR 60 DAYS THEN 2 CAPSULES ONCE DAILY FOR 15 DAYS THEN 1 CAPSULE ONCE DAILY FOR 7 DAYS Oral Calcium 500 MG Tablet 1 tablet with meals Orally Twice a day Claritin(Loratadine) 10 MG Tablet 1 tablet Orally Once a day Furosemide 40 MG Tablet TAKE 1 TABLET BY MOUTH ONCE DAILY AT 2 PM Oral guaiFENesin-Codeine 100-10 MG/5ML Solution TAKE 10 ML BY MOUTH EVERY 6 HOURS NEEDED FOR COUGH FOR 7 DAYS Oral MAGnesium-Oxide(Magnesium Oxide -Mg Supplement) 400 (240 Mg) MG Tablet TAKE 1 TABLET BY MOUTH TWICE DAILY Oral Multi Complete(Multiple Vitamins-Minerals) - Capsule as directed Orally Omeprazole 20 MG Capsule Delayed Release Oral Potassium Chloride Khloe ER 20 MEQ Tablet Extended Release Oral Torsemide 100 MG Tablet Oral Zinc 30 MG Tablet 1 tablet Orally Once a day Taking Allopurinol 300 MG Tablet Oral Taking Aspirin 81 MG Tablet Delayed Release 1 tablet Orally Once a day Taking Atorvastatin Calcium 10 MG Tablet Oral Taking Budesonide 3 MG Capsule Delayed Release Particles TAKE 3 CAPSULES BY MOUTH ONCE DAILY FOR 60 DAYS THEN 2 CAPSULES ONCE DAILY FOR 15 DAYS THEN 1 CAPSULE ONCE DAILY FOR 7 DAYS Oral Taking Calcium 500 MG Tablet 1 tablet with meals Orally Twice a day Taking Claritin(Loratadine) 10 MG Tablet 1 tablet Orally Once a day Taking Furosemide 40 MG Tablet TAKE 1 TABLET BY MOUTH ONCE DAILY AT 2 PM Oral Taking guaiFENesin-Codeine 100-10 MG/5ML Solution TAKE 10 ML BY MOUTH EVERY 6 HOURS NEEDED FOR COUGH FOR 7 DAYS Oral Taking MAGnesium-Oxide(Magnesium Oxide -Mg Supplement) 400 (240 Mg) MG Tablet TAKE 1 TABLET BY MOUTH TWICE DAILY Oral Taking Multi Complete(Multiple Vitamins-Minerals) - Capsule as directed Orally Taking Omeprazole 20 MG Capsule Delayed Release Oral Taking Potassium Chloride Khloe ER 20 MEQ Tablet Extended Release Oral Taking Torsemide 100 MG Tablet Oral Taking Zinc 30 MG Tablet 1 tablet Orally Once a day DiscontinuedAlbuterol Sulfate HFA 108 (90 Base) MCG/ACT Aerosol Solution Inhalation Breztri Aerosphere(Mnmgyls-Nzpzssdezwk-Qtpwyurxos) 160/9/4.8 mcg aerosol 2 puffs inhalation BID Breztri Aerosphere(Bbsyzvf-Tdsnbanllov-Difytndljp) 160/9/4.8 mcg aerosol 2 puffs inhalation BID EQ Space Chamber Anti-Static(Spacer/Aero-Holding Chambers) - Device Furosemide 80 MG Tablet Oral Losartan Potassium 25 MG Tablet TAKE 1 TABLET BY MOUTH ONCE DAILY Oral Medication List reviewed and reconciled with the patientDiscontinued Albuterol Sulfate HFA 108 (90 Base) MCG/ACT Aerosol Solution Inhalation Discontinued Breztri Aerosphere(Snxopss-Akkbhbeifwk-Vsmsrapxzv) 160/9/4.8 mcg aerosol 2 puffs inhalation BID Discontinued Breztri Aerosphere(Bmuqviw-Qnnqzseexdv-Onugbcsozs) 160/9/4.8 mcg aerosol 2 puffs inhalation BID Discontinued EQ Space Chamber Anti-Static(Spacer/Aero-Holding Chambers) - Device Discontinued Furosemide 80 MG Tablet Oral Discontinued Losartan Potassium 25 MG Tablet TAKE 1 TABLET BY MOUTH ONCE DAILY Oral Medication List reviewed and reconciled with the patient * Allergies: T ramadol: Hallucinations - Allergyno[Allergies Verified] Objective: * Vitals: W t:196.4lbs, Ht: 72 in, BP:sittin/73mm Hg, Temp:Forehead:97.0F, HR:83/min, RR:18/min, BMI:26.63Index, Oxygen sat %:Room Air:96.8%, Ht-cm: 182.88 cm, Wt-k.09 kg. * Examination: E xam: GENERAL APPEARANCE: N o acute distress. Skin N ormal. Mouth P ink and moist. No oral candidiasis. Oropharynx M allampati Class III. Trachea M idline. Chest R ight Pleurx catheter remains - area dressed. Respiratory Normal M ovements, E ffort N ormal. Auscultation D iminished in right base. Percussion D ullness right base. Egophony M uffled in right base. Cardiac R egular rate and rhythm. Gastrointestinal N ormal. Vascular N o edema. Musculoskeletal N ormal posture. Neurological F ocal, intact. Psychiatric A lert and oriented x3. Mentation/Cognition N ormal. Assessment: * Assessment: 1. P leural effusion - J90 (Primary) Plan: * Treatment: * Procedure Codes: * Preventive Medicine: COVID Vaccination: H as patient had COVID Vaccination? COVID Vaccination Y es 05/10/2021 Immunization Status: P neumovacc p neumovacc -02/03/2018. I nfluenza 1 07/28/2023. Z ostivax 0 08/30/2018. B oostrix 1 07/28/2023. Screenings/Counseling: F ALL RISK SCREENING Fall Risk Assessment: N o falls in the past year Are you afraid of falling? N o T OBACCO ACTION PLAN Exclusion: M edical Reason Non Smoker Type of Medical Reason: N ot indicated F MICHEAL EXCLUSION Reason: P atient Reason refused/declined Type of Patient Reason: D rug declined by patient B [place] ACTION PLAN Above Normal BMI Follow-up D ietary management education, guidance, and counseling R SV Vaccine-05/27/2024. * Follow Up: P RN * * Sign off status: Completed Visit Status: C HK (Check Out) true * Provider: Shahzad Gotti DO Date: 07/21/2024 Generated for Madeleine rehman/Alfredo/Madelaineitting on: 12/11/2024 11:14 AM EDT History and Physical Notes * Examination Category Sub-Category Detail Notes Category Not es Exam GENERAL APPEARANCE: No acute distress Skin Normal Mouth [place] and moist. No o ral candidiasis Trachea Midline Chest Right Pleurx cathete r remains - area dressed Respiratory Normal Movements, Ef fort Normal Auscultation Diminished in right base Percussion Dullness right base Egophony Muffled in right bas e Cardiac Regular rate and rhy thm Gastrointestinal Normal Vascular No edema Musculoskeletal Normal posture Neurological Focal, intact Psychiatric Alert and oriented x 3 Mentation/Cognition Normal Oropharynx Mallampati Class III
--- OUTSIDE RECORDS SUMMARY | 2024-12-11 11:13 | XMS_ITS | Encounter Summary ---
Author Organization [facility] Address [address] [place] [address] Care Team Providers Care Stuffer Name Role Phone Jere Sales MD Unavailable [phone] Calin Gotti DO Unavailable [phone] Jose Antonio Meyers MD Primary Care Provider [phone] Source Comments In the event this information is protected by the Federal Confidentiality of Alcohol and Drug AbusePatient Records regulations: The Federal rules restrict any use of the information to criminally investigate or prosecute any alcohol or drug abuse patient.[facility] Encounter Details Date Type Department Care Team (Late st Contact Info) Description 02/10/2024 Get Medical Advice Thoracic Surgery [address] [place] [address] Cecilia Guadarrama APRN.NURSERY MANAGER [address] [place] [address] Willie Kimberly Social History Tobacco [...] is lower risk 5 12/11/2023 Data from: https://www.neighborhoodatlas.medicine.[facility].edu/. Last address used for calculation 22[address] [...] EDT [place] [address] [place] [address] [place] [address] [place] [address] Follow-up 12/16/2024 12:30 PM EDT Office Visit Vascular Surgery 5700 [facility] [place] [address] Extremity cyanosis [R23.0] 12/16/2024 3:30 PM EDT Office Visit Vascular Surgery [address]00 [facility] [address] Extremity cyanosis [R23.0] 12/22/2024 6:00 PM EDT [facility] Gastroenterology [address] [address] Araseli Wall APRN.NURSERY MANAGER [address] [facility] [place] [address] Elevated alkaline phosphatase leve 01/08/2025 1:00 PM EDT Appointment Radiology [address] [place] [address] [place] [address] XR CHEST 2V FRONTAL/LAT 01/11/2025 9:30 AM EDT Office Visit Pulmonary Medicine [address] [place] [address] Triston Riggs MD [address] [place] [address] 4-6 weeks 05/21/2025 2:00 PM EST Office Visit Cardiology [address] [place] [address] [place] [address] [place] [address] 6 month follow up documented as of this encounter Goals Goal Patient Goal Type Associated Problems Recent Progress Patient-Stated? Author Blood Pressure < 130/80 Blood Pressure 120/74( 025 10:15 PM EDT) No Sung Hartley MD documented as of this encounter Visit Diagnoses Not on filedocumented in this encounter Care Teams Stuffer Relationship Specialty Start [place] [address] [facility] [place] [address] PCP - General Family Medicine 12/29/23 Jere Sales MD [address] [address] Referring Gastroenterology 12/05/20 Calin Gotti DO [address] [place] [address] Internal Medicine 10/16/23 documented as of this encounter
--- OUTSIDE RECORDS SUMMARY | 2024-12-11 11:13 | XMS_ITS | Encounter Summary ---
Author Organization [facility] Address [facility] [place] [address] Care Team Providers Care Cash Register Balancer Name Role Phone Jere Sales MD Unavailable [phone] Calin Gotti DO Unavailable [phone] Jose Antonio Meyers MD Primary Care Provider [phone] Source Comments In the event this information is protected by the Federal Confidentiality of Alcohol and Drug AbusePatient Records regulations: The Federal rules restrict any use of the information to criminally investigate or prosecute any alcohol or drug abuse patient.[facility] Encounter Details Date Type Department Care Team (Late st Contact Info) Description 01/20/2024 Get Medical Advice Thoracic Surgery [address] [place] [address] Cecilia Guadarrama APRN.EXCHANGE CLERK [address] [place] [address] Willie Harris Appt Feb 04, 2024 Social History Tobacco Use Types Packs/Day Years Used Date Smoking Tobacco: Never Smokeless Tobacco: Never Alcohol Use Standard Drinks/Week Comments Yes 0 (1 standard drink = 0.6 oz pure alcohol) socially, no drink since 06/2023 [facility] Utilities Answer Date Recorded In the [...] is lower risk 5 12/11/2023 Data from: https://www.neighborhoodatlas.medicine.[facility].edu/. Last address used for calculation 2230 12/11/2023 [...] EDT [place] [address] [place] [address] [place] [address] [place] [address] Follow-up 12/16/2024 12:30 PM EDT Office Visit Vascular Surgery [address] [place] [address] Extremity cyanosis [R23.0] 12/16/2024 3:30 PM EDT Office Visit Vascular Surgery 5700 [facility] [place] [address] Extremity cyanosis [R23.0] 12/22/2024 6:00 PM EDT [facility] Gastroenterology [address] [address] Araseli Wall APRN.EXCHANGE CLERK [address] [place] [address] Elevated alkaline phosphatase leve 01/08/2025 1:00 PM EDT Appointment Radiology [address] [place] [address] [place] [address] XR CHEST 2V FRONTAL/LAT 01/11/2025 9:30 AM EDT Office Visit Pulmonary Medicine [address] [address] Triston Riggs MD [address] [place] [address] 4-6 weeks 05/21/2025 2:00 PM EST Office Visit Cardiology [address] [place] [address] [place] [address] [facility] [place] [address] 6 month follow up documented as of this encounter Goals Goal Patient Goal Type Associated Problems Recent Progress Patient-Stated? Author Blood Pressure < 130/80 Blood Pressure 120/74( 025 10:15 PM EDT) No Sung Hartley MD documented as of this encounter Visit Diagnoses Not on filedocumented in this encounter Care Teams Cash Register Balancer Relationship Specialty Start [place] [address] [facility] [place] [address] PCP - General Family Medicine 12/29/23 Jere Sales MD [address] [address] Referring Gastroenterology 12/05/20 Calin Gotti DO [address] [place] [address] Internal Medicine 10/16/23 documented as of this encounter
--- OUTSIDE RECORDS SUMMARY | 2024-12-11 11:13 | XMS_ITS | Encounter Summary ---
Author Organization [facility] Address [facility] [place] [address] Care Team Providers Care Cylinder Press Operator Apprentice Name Role Phone Jere Sales MD Unavailable [phone] Calin Gotti DO Unavailable [phone] Jose Antonio Meyers MD Primary Care Provider [phone] Source Comments In the event this information is protected by the Federal Confidentiality of Alcohol and Drug AbusePatient Records regulations: The Federal rules restrict any use of the information to criminally investigate or prosecute any alcohol or drug abuse patient.[facility] Encounter Details Date Type Department Care Team (Late st Contact Info) Description 08/28/2024 Get Medical Advice Pulmonary Medicine [address] [place] [address] Triston Riggs MD [address] [place] [address] Willie Harris. 1950 Social History Tobacco Use Types Packs/Day Years Used Date Smoking Tobacco: Never Smokeless Tobacco: Never Alcohol Use Standard Drinks/Week Comments Yes 0 (1 standard drink = 0.6 oz pure alcohol) socially, no drink since 06/2023 [facility] Utilities Answer Date Recorded In the [...] is lower risk 5 12/11/2023 Data from: https://www.neighborhoodatlas.medicine.[facility].edu/. Last address used for calculation [...] 09/01/2024 11:36 AM EDT Patient called regarding LensX Lasershart message below. She expressed that she has not heard anything back yet. documented in this encounter Plan of Treatment Upcoming Encounters Date Type Department Care Team (Late st Contact Info) Description 12/15/2024 11:15 AM EDT [place] [address] [place] [address] [place] [address] [address] [place] [id number] Follow-up 12/16/2024 12:30 PM EDT Office Visit Vascular Surgery 57[address] [place] [address] Extremity cyanosis [R23.0] 12/16/2024 3:30 PM EDT Office Visit Vascular Surgery 57[address] [place] [address] Extremity cyanosis [R23.0] 12/22/2024 6:00 PM EDT [facility] Gastroenterology [address] [address] Araseli Wall APRN.WATER [employer]S SUPERINTENDENT [address] [place] [address] Elevated alkaline phosphatase leve 01/08/2025 1:00 PM EDT Appointment Radiology [address] [place] [address] [place] [address] XR CHEST 2V FRONTAL/LAT 01/11/2025 9:30 AM EDT Office Visit Pulmonary Medicine [address] [address] Triston Riggs MD [address] [place] [address] 4-6 weeks 05/21/2025 2:00 PM EST Office Visit Cardiology [address] [place] [address] [place] [address] [place] [address] 6 month follow up documented as of this encounter Goals Goal Patient Goal Type Associated Problems Recent Progress Patient-Stated? Author Blood Pressure < 130/80 Blood Pressure 120/74( 025 10:15 PM EDT) No Sung Hartley MD documented as of this encounter Visit Diagnoses Not on filedocumented in this encounter Care Teams Cylinder Press Operator Apprentice Relationship Specialty [place] [address] [facility] [place] [address] PCP - General Family Medicine 12/29/23 Jere Sales MD [address] [address] Referring Gastroenterology 12/05/20 Calin Gotti DO [address] [place] [address] Internal Medicine 10/16/23 documented as of this encounter
--- OUTSIDE RECORDS SUMMARY | 2024-12-11 11:13 | XMS_ITS | Encounter Summary ---
Author Organization [facility] Address [address] [place] [address] Care Team Providers Care Scrubbing Machine Operator Name Role Phone Jere Sales MD Unavailable [phone] Calin Gotti DO Unavailable [phone] Jose Antonio Meyers MD Primary Care Provider [phone] Source Comments In the event this information is protected by the Federal Confidentiality of Alcohol and Drug AbusePatient Records regulations: The Federal rules restrict any use of the information to criminally investigate or prosecute any alcohol or drug abuse patient.[facility] Reason for Referral * Outpatient Procedure (Routine) - New Request Specialty Diagnoses / Procedures Referred By Contac t Referred To Contact [facility] Diagnoses Cough, unspecified type Procedures NITRIC OXIDE, EXHALED NITRIC OXIDE GAS DETERMINATION Louise Douglas MD [facility] [place] [address] Phone: tel: fax: [facility] [address] [place] [address] Referral ID Status Reason Start Date Expiration Date Visits Requested Visits Authorized [id number] New Request Auto-Generat ed Referral 01/10/2024 02/08/2025 1 1 Encounter Details Date Type Department Care Team (Latest Contact Info) Description 01/10/2024 Transcribe Orders [facility] [address] [place] [address] Louise Douglas MD [address] [place] [address] Cough, unspecified type (Primary Dx) Social History Tobacco Use Types Packs/Day Years Used Date Smoking Tobacco: Never Smokeless Tobacco: Never [facility] Utilities Answer Date Recorded In the past 12 months has th e [employer], gas, oil, or water [employer] threatened to shut off services in your [...] is lower risk 5 12/11/2023 Data from: https://www.neighborhoodatlas.medicine.[facility]/. Last address used for calculation 2230 12/11/2023 [...] EDT [place] [address] [place] [address] [place] [address] [place] [address] Follow-up 12/16/2024 12:30 PM EDT Office Visit Vascular Surgery 5700 [place] [address] Extremity cyanosis [R23.0] 12/16/2024 3:30 PM EDT Office Visit Vascular Surgery 57[address] [place] [address] Extremity cyanosis [R23.0] 12/22/2024 6:00 PM EDT [facility] Gastroenterology [address] [address] Araseli Wall APRN.DIE TRY OUT WORKER STAMPING [address] [place] [address] Elevated alkaline phosphatase leve 01/08/2025 1:00 PM EDT Appointment Radiology [address] [place] [address] [place] [address] XR CHEST 2V FRONTAL/LAT 01/11/2025 9:30 AM EDT Office Visit Pulmonary Medicine [address] [place] [address] Triston Riggs MD [address] [place] [address] 4-6 weeks 05/21/2025 2:00 PM EST Office Visit Cardiology [id number] [place] [address] [place] [address] [facility] [place] [address] 6 month follow up Scheduled Orders Name [...] any questions regarding this interpretation, please call [phone]. If you are unable to reach us at the number above, please feel free to contact [facility] at [phone]. Narrative 10/13/2024 3:26 PM EDT * * [...] and soft tissues: Unremarkable. Procedure Note Provider, [facility] - 10/13/2024 * * *Final Report* * [...] any questions regarding this interpretation, please call [phone]. If you are unable to reach us at the number above, please feel free to contact [facility] at [phone]. us Louise Douglas MD [facility] Final Result documented in this encounter Visit Diagnoses Diagnosis Cough, unspecified type- Primary Cough, unspecified type documented in this encounter Care Teams Scrubbing Machine Operator Relationship Specialty Start [place] [address] [facility] [place] [address] PCP - General Family Medicine 12/29/23 Jere Sales MD [address] [address] Referring Gastroenterology 12/05/20 Calin Gotti DO [address] [place] [address] Internal Medicine 10/16/23 documented as of this encounter
--- OUTSIDE RECORDS SUMMARY | 2024-12-11 11:13 | XMS_ITS | Encounter Summary ---
Author Organization [facility] Address [facility] [place] [address] Care Team Providers Care Marriage And Family Counselor Name Role Phone eJre Sales MD Unavailable [phone] Calin Gotti DO Unavailable [phone] Jose Antonio Meyers MD Primary Care Provider [phone] Source Comments In the event this information is protected by the Federal Confidentiality of Alcohol and Drug AbusePatient Records regulations: The Federal rules restrict any use of the information to criminally investigate or prosecute any alcohol or drug abuse patient.[facility] Encounter Details Date Type Department Care Team (Late st Contact Info) Description 08/25/2024 Get Medical Advice Pulmonary Medicine [address] [place] [address] Triston Riggs MD [address]00 [place] [address] Willie Harris . 1950 Social History Tobacco Use Types Packs/Day Years Used Date Smoking Tobacco: Never Smokeless Tobacco: Never Alcohol Use Standard Drinks/Week Comments Yes 0 (1 standard drink = 0.6 oz pure alcohol) socially, no drink since 06/2023 [facility] Utilities Answer Date Recorded In the past [...] EDT [place] [address] [place] [address] [place] [address] [place] [address] Follow-up 12/16/2024 12:30 PM EDT Office Visit Vascular Surgery [address] [place] [address] Extremity cyanosis [R23.0] 12/16/2024 3:30 PM EDT Office Visit Vascular Surgery 5700 [facility] [place] [address] Extremity cyanosis [R23.0] 12/22/2024 6:00 PM EDT [facility] Gastroenterology [address] [address] Araseli Wall APRN.FREEZER WORKER [address]00 [place] [address] Elevated alkaline phosphatase leve 01/08/2025 1:00 PM EDT Appointment Radiology [address] [place] [address] [place] [address] XR CHEST 2V FRONTAL/LAT 01/11/2025 9:30 AM EDT Office Visit Pulmonary Medicine [address] [address] Triston Riggs MD [address] [place] [address] 4-6 weeks 05/21/2025 2:00 PM EST Office Visit Cardiology [address] [place] [address] [place] [address] [facility] [place] [address] 6 month follow up documented as of this encounter Goals Goal Patient Goal Type Associated Problems Recent Progress Patient-Stated? Author Blood Pressure < 130/80 Blood Pressure 120/74( 025 10:15 PM EDT) No Sung Hartley MD documented as of this encounter Visit Diagnoses Not on filedocumented in this encounter Care Teams Marriage And Family Counselor Relationship Specialty Start [place] [address] [facility] [place] [address] PCP - General Family Medicine 12/29/23 Jere Sales MD [address] [address] Referring Gastroenterology 12/05/20 Calin Gotti DO [address] [place] [address] Internal Medicine 10/16/23 documented as of this encounter
--- OUTSIDE RECORDS SUMMARY | 2024-12-11 11:13 | XMS_ITS | Clinical Summary ---
Author Organization [facility] Address [address] [place] [address] Care Team Providers Care Experimental Mechanic Electrical Name Role Phone Dawit Lorenz DO Primary Care Provider [phone] Dawit Lorenz DO Unavailable [phone] Karthik Calloway MD Unavailable Unavail able Allergies [...] every morning . Active vit A-vit C-vit V-xsqi-vawibd 7,160-113-100 zktq-vt-bqea Tab Take 1 tablet by mouth every [...] for , 07/05/16 @ 130pm at our [facility] office. S/P total knee arthroplasty 06/25/2016 Osteoarthritis [...] 02/03/2018, 11/26/2016 Medical Devices Implanted Type Area Drapery Seamstress Device Identifier Shelf Expiration Date Model / Serial / Lot Cement 1 X 40 Palacos Bone Single - [id number] Implanted:Qty: 2 on 08/23/2014 by Karthik Calloway MD at [facility] [place] Cement Left: Knee Anh 01/14/2019 00-1112-140 -01 / / [id number] Stem Short Cemented Persona - [id number] Implanted:Qty: 1 on 08/23/2014 by Karthik Calloway MD at [facility] [place] ANH HAK 09/23/2017 [id number] -14 / / [id number] Stem Sz F Tib 5deg Nonpor Lt Persona - [id number] Implanted:Qty: 1 on 08/23/2014 by Karthik Callowya MD at [facility] [place] ANH HAK 03/25/2024 [id number] -01 / / [id number] Femoral Sz9 Lt Nrw Ps Cmt Ccr Persona - [id number] Implanted:Qty: 1 on 08/23/2014 by Karthik Calloway MD at [facility] ANH HAK 12/23/2022 [id number] -01 / / [id number] Patella 32mm All Poly Persona - [id number] Implanted:Qty: 1 on 08/23/2014 [facility]2022 42-5400-000 -32 / / [id number] Articular Surf Ef 6-9 14mm Lt Ps Vivacit-E Persona - [id number] Implanted:Qty: 1 on 08/23/2014 [facility] 09/23/2017 [id number] -14 / / [id number] Simplex Hv With Gentamicin Cement Implanted:Qty: 2 on 06/25/2016 by Karthik Calloway MD at [facility] Right: Knee HOWMEDICA 01/14/2018 [id number] / / [id number] Stem Sz F Tib 5deg Nonpor Rt Persona - [id number] Implanted:Qty: 1 on 06/25/2016 by Karthik Calloway MD at [facility] Right: Knee ANH K 05/16/2026 [id number] -02 / / [id number] Femoral Sz9 Rt Nrw Ps Cmt Ccr Persona - [id number] Implanted:Qty: 1 on 06/25/2016 by Karthik Calloway MD at [facility] Right: Knee ANH K 02/14/2026 [id number] -02 / / [id number] Stem Short Cemented Persona - [id number] Implanted:Qty: 1 on 06/25/2016 by Karthik Calloway MD at [facility] Right: Knee ANH K 06/16/2026 42-5570-001 -14 / / [id number] Patella 32mm All Poly Vivacit-E - [id number] Implanted:Qty: 1 on 06/25/2016 by Karthik Calloway MD at [facility] Right: Knee ANH HAK 04/16/2021 [id number] -32 / / [id number] Articular Surf 14mm 6-9ef Rt Cps Ve Persona - [id number] Implanted:Qty: 1 on 06/25/2016 by Karthik Calloway MD at [facility] Right: Knee ANH HAK 12/14/2020 [id number] -14 / / [id number] Explanted Type Area Drapery Seamstress Device Identifier Shelf Expiration Date Model / Serial / Lot Headed Screw Explanted:Qty: 4 on 08/23/2014 by Karthik Calloway MD at [facility] Left: Knee Anh 08/14/2024 5791-41 / / [id number] 2.5mm Female Hex Screw Explanted:Qty: 1 on 08/23/2014 by Karthik Calloway MD at [facility] Left: Knee Anh 06/16/2024 [id number] -25 / / [id number] Headed Screw Explanted:Qty: 1 on 08/23/2014 by Karthik Calloway MD at [facility] Left: Knee Anh 07/17/2024 / / Insurance [employer] MEDICARE PLAN (PPO) Advance Directives For more information, please contact: [phone] * Full Code (Latest Code Status on File) Date Activated Date Inactivated Comments 06/25/2016 1:54 PM 06/29/2016 3:41 PM * Full Code Date Activated Date Inactivated Comments 08/23/2014 6:45 AM 08/25/2014 7:58 PM Care Teams Experimental Mechanic Electrical Relationship Specialty Start Date End Date Dawit Lorenz DO [address] [place] [address] PCP - General Internal Medicine 06/29/14 Dawit Lorenz DO [address] [place] [address] Internal Medicine 06/29/14 Karthik Claloway MD [address] [place] [address] Consulting Physician Orthopedic Surgery 01/28/17
--- OUTSIDE RECORDS SUMMARY | 2024-12-11 11:13 | XMS_ITS | Encounter Summary ---
Author Organization [facility] Address [address] [place] [address] Care Team Providers Care Tin Worker Name Role Phone Jere Sales MD Unavailable [phone] Calin Gotti DO Unavailable [phone] Jose Antonio Meyers MD Primary Care Provider [phone] Source Comments In the event this information is protected by the Federal Confidentiality of Alcohol and Drug AbusePatient Records regulations: The Federal rules restrict any use of the information to criminally investigate or prosecute any alcohol or drug abuse patient.[facility] Encounter Details Date Type Department Care Team (Late st Contact Info) Description 02/10/2024 Get Medical Advice Thoracic Surgery [address] [place] [address] Cecilia Guadarrama APRN.SECURITY INTERN [address] [place] [address] Inseam Trimming Machine Operator/Goldie lar Appt Social History Tobacco Use Types Packs/Day Years Used Date Smoking Tobacco: Never Smokeless Tobacco: Never Alcohol Use Standard Drinks/Week Comments Yes 0 (1 standard drink = 0.6 oz pure alcohol) socially, no drink since 06/[address] [facility] Utilities Answer Date Recorded In the [...] is lower risk 5 12/11/2023 Data from: https://www.neighborhoodatlas.medicine.[facility].edu/. Last address used for calculation [...] EDT [place] [address] [place] [address] [place] [address] [place] [address] Follow-up 12/16/2024 12:30 PM EDT Office Visit Vascular Surgery [address] [facility] [place] [address] Extremity cyanosis [R23.0] 12/16/2024 3:30 PM EDT Office Visit Vascular Surgery [address] [place] [address] Extremity cyanosis [R23.0] 12/22/2024 6:00 PM EDT [facility] Gastroenterology [address] [address] Araseli Wall APRN.SECURITY INTERN [address] [place] [address] Elevated alkaline phosphatase leve 01/08/2025 1:00 PM EDT Appointment Radiology [address] [place] [address] [place] [address] XR CHEST 2V FRONTAL/LAT 01/11/2025 9:30 AM EDT Office Visit Pulmonary Medicine [address] [place] [address] Triston Riggs MD [address] [place] [address] 4-6 weeks 05/21/2025 2:00 PM EST Office Visit Cardiology [address] [place] [address] [place] [address] [facility] [place] [address] 6 month follow up documented as of this encounter Goals Goal Patient Goal Type Associated Problems Recent Progress Patient-Stated? Author Blood Pressure < 130/80 Blood Pressure 120/74( 025 10:15 PM EDT) No Sung Hartley MD documented as of this encounter Visit Diagnoses Not on filedocumented in this encounter Care Teams Tin Worker Relationship Specialty Start [place] [address] [place] [address] PCP - General Family Medicine 12/29/23 Jere Sales MD [address] [address] Referring Gastroenterology 12/05/20 Calin Gotti DO [address] [place] [address] Internal Medicine 10/16/23 documented as of this encounter
--- OUTSIDE RECORDS SUMMARY | 2024-12-11 11:14 | XMS_ITS | Encounter Summary ---
Author Organization [facility] Address [address] [place] [address] [place] [address] Care Team Providers Care S Iron Worker Name Role Phone Unavailable Primary Care Provider Unavailabl e Encounter Details Date Type Department Care Team (Late st Contact Info) Description 01/01/2023 Abstract [facility] [address] [place] [id number] Bianca Bynum MD [address] [place] [address] Social History Tobacco Use Types Packs/Day Years [...] NB OPHT [address] [place] [address] Arley Hamilton DO [address] [place] [address] 08/31/2025 1:05 PM EDT Office Visit [facility] [address] [place] [address] Bianca Bynum MD [address] [place] [address] documented as of this encounter Visit Diagnoses Not on filedocumented in this encounter
--- OUTSIDE RECORDS SUMMARY | 2024-12-11 11:14 | XMS_ITS | Clinical Summary ---
Author Organization [facility] Address [id number] [address] [place] [address] Care Team Providers Care Drying Room Attendant Name Role Phone Unavailable Primary Care Provider [...]
--- OUTSIDE RECORDS SUMMARY | 2024-12-11 11:14 | XMS_ITS | Encounter Summary ---
Author Organization [facility] Address [address] [place] [address] Care Team Providers Care Fire Pot Operator Name Role Phone Jere Sales MD Unavailable [phone] Calin Gotti DO Unavailable [phone] Jose Antonio Meyers MD Primary Care Provider [phone] Source Comments In the event this information is protected by the Federal Confidentiality of Alcohol and Drug AbusePatient Records regulations: The Federal rules restrict any use of the information to criminally investigate or prosecute any alcohol or drug abuse patient.[facility] Encounter Details Date Type Department Care Team (Latest Contact Info) Description 01/07/2024 Transcribe Orders Respiratory [place] [address] [place] [address] Louise Douglas MD [address] [place], [place] [id number] Chronic bronchitis, unspecified chronic bronchitis type (HCC) (Primary Dx) Social History Tobacco Use Types Packs/Day Years Used Date Smoking Tobacco: Never Smokeless Tobacco: Never [facility] Utilities Answer Date Recorded In the past [...] EDT [place] [address] [place] [address] [place] [address] [place] [address] Follow-up 12/16/2024 12:30 PM EDT Office Visit Vascular Surgery [address] [place] [address] Extremity cyanosis [R23.0] 12/16/2024 3:30 PM EDT Office Visit Vascular Surgery [address] [place] [address] Extremity cyanosis [R23.0] 12/22/2024 6:00 PM EDT [facility] Gastroenterology [address] [address] Araseli Wall, TECHNICAL ACCOUNT MANAGER.MARKETING DIRECTOR [address] [place] [address] Elevated alkaline phosphatase leve 01/08/2025 1:00 PM EDT Appointment Radiology [address] [place] [address] [place] [address] XR CHEST 2V FRONTAL/LAT 01/11/2025 9:30 AM EDT Office Visit Pulmonary Medicine [address] [place] [address] Triston Riggs MD [address] [place] [address] 4-6 weeks 05/21/2025 2:00 PM EST Office Visit Cardiology [address] [place] [address] [place] [address] [facility] [place] [address] 6 month follow up documented as of [...] noted slightly increased. Right-sided Pleurx catheter present. Dental Technology Advisor: PSCB Transcribe Date/Time: Mar 19 2024 4:42P [...] and soft tissues: Unremarkable. Procedure Note Provider, [facility] [place] - 03/19/2024 * * *Final Report* * [...] noted slightly increased. Right-sided Pleurx catheter present. Dental Technology Advisor: PSCB Transcribe Date/Time: Mar 19 2024 4:42P [...] (HCC) documented in this encounter Care Teams Fire Pot Operator Relationship Specialty Start [place] [address] [place] [address] PCP - General Family Medicine 12/29/23 Jere Sales MD [address] [address] Referring Gastroenterology 12/05/20 Calin Gotti DO [address] [place] [address] Internal Medicine 10/16/23 documented as of this encounter
--- OUTSIDE RECORDS SUMMARY | 2024-12-11 11:14 | XMS_ITS | Encounter Summary ---
Author Organization [facility] Address [facility] [place] [address] Care Team Providers Care Dial Maker Name Role Phone Jere Sales MD Unavailable [phone] Calin Gotti DO Unavailable [phone] Jose Antonio Meyers MD Primary Care Provider [phone] Source Comments In the event this information is protected by the Federal Confidentiality of Alcohol and Drug AbusePatient Records regulations: The Federal rules restrict any use of the information to criminally investigate or prosecute any alcohol or drug abuse patient.[facility] Encounter Details Date Type Department Care Team (Late st Contact Info) Description 09/21/2024 Get Medical Advice Pulmonary Medicine [address] [place] [address] Triston Riggs MD [address] [place] [address] Willei Harris 1950 Steroid Injections Social History Tobacco Use Types Packs/Day Years Used Date Smoking Tobacco: Never Smokeless Tobacco: Never Alcohol Use Standard Drinks/Week Comments Yes 0 (1 standard drink = 0.6 oz pure alcohol) socially, no drink since 06/2023 [facility] Utilities Answer Date Recorded In [...] risk 5 12/11/2023 Data from: https://www.neighborhoodatlas.medicine.[facility].edu/. Last address used for calculation [...] EDT [place] [address] [place] [address] [place] [address] [place] [address] Follow-up 12/16/2024 12:30 PM EDT Office Visit Vascular Surgery [address] [place] [address] Extremity cyanosis [R23.0] 12/16/2024 3:30 PM EDT Office Visit Vascular Surgery [address] [place] [address] Extremity cyanosis [R23.0] 12/22/2024 6:00 PM EDT [facility] Gastroenterology [address] [address] Araseli Wall APRN.DITTO MACHINE OPERATOR [address] [place] [address] Elevated alkaline phosphatase leve 01/08/2025 1:00 PM EDT Appointment Radiology [address] [place] [address] [place] [address] XR CHEST 2V FRONTAL/LAT 01/11/2025 9:30 AM EDT Office Visit Pulmonary Medicine [address] [place] [address] Triston Riggs MD [address] [place] [address] 4-6 weeks 05/21/2025 2:00 PM EST Office Visit Cardiology [address] [place] [address] [place] [address] [facility] [address] 6 month follow up documented as of this encounter Goals Goal Patient Goal Type Associated Problems Recent Progress Patient-Stated? Author Blood Pressure < 130/80 Blood Pressure 120/74( 025 10:15 PM EDT) No Sung Hartley MD documented as of this encounter Visit Diagnoses Not on filedocumented in this encounter Care Teams Dial Maker Relationship Specialty Start [place] [address] [place] [address] PCP - General Family Medicine 12/29/23 Jere Sales MD [address] [address] Referring Gastroenterology 12/05/20 Calin Gotti DO [address] [place] [address] Internal Medicine 10/16/23 documented as of this encounter
--- OUTSIDE RECORDS SUMMARY | 2024-12-11 11:14 | XMS_ITS | Clinical Summary ---
Author Organization [facility] Address [address] [place] [address] Care Team Providers Care Die Casting Machine Maintainer Name Role Phone Unavailable Primary Care Provider [...] NB OPHT [address] [place] [address] Arley Hamilton DO [address] [place] [address] 08/31/2025 1:05 PM EDT Office Visit [facility] [address] [place] [address] Bianca Bynum MD [address] [place] [address] Health Maintenance Due Date Last Done Comments CT Colonography 1950 FIT-DNA 1950 FIT 1950 FOBT 1950 Sigmoidoscopy 1950 Colonoscopy 04/28/2034 04/28/2024, 04/28/2024 Colorectal Cancer Screening 04/28/2034 Pneumococcal Vaccine: 65+ Years Completed 8, 11/26/2016 Influenza Vaccine Completed 05/27/2024, 05/09/[address] [place] [address] [employer] MEDICARE ADVANTAGE
--- OUTSIDE RECORDS SUMMARY | 2024-12-11 11:14 | XMS_ITS | Encounter Summary ---
Author Organization [facility] Address [address] [place] [address] Care Team Providers Care Central Office Maintainer Name Role Phone Jere Sales MD Unavailable [phone] Calin Gotti DO Unavailable [phone] Jose Antonio Meyers MD Primary Care Provider [phone] Source Comments In the event this information is protected by the Federal Confidentiality of Alcohol and Drug AbusePatient Records regulations: The Federal rules restrict any use of the information to criminally investigate or prosecute any alcohol or drug abuse patient.[facility] Encounter Details Date Type Department Care Team (Late st Contact Info) Description 10/07/2024 Get Medical Advice Pulmonary Medicine [address] [place], [place] [phone] Katerina Pascual PA-C [address] [place] [address] Willie Harris 1950 Social History Tobacco Use Types Packs/Day Years Used Date Smoking Tobacco: Never Smokeless Tobacco: Never Alcohol Use Standard Drinks/Week Comments Yes 0 (1 standard drink = 0.6 oz pure alcohol) socially, no drink since 06/2023 [facility] Utilities Answer Date Recorded In the [...] risk 5 12/11/2023 Data from: https://www.neighborhoodatlas.medicine.[facility].edu/. Last address used for calculation [...] EDT [place] [address] [place] [address] [place] [address] [place] [address] Follow-up 12/16/2024 12:30 PM EDT Office Visit Vascular Surgery [address] [facility] [place] [address] Extremity cyanosis [R23.0] 12/16/2024 3:30 PM EDT Office Visit Vascular Surgery [address] [place] [address] Extremity cyanosis [R23.0] 12/22/2024 6:00 PM EDT [facility] Gastroenterology [address] [address] Araseli Wall APRN.CUSTOMS HOUSE BROKER [address] [place] [address] Elevated alkaline phosphatase leve 01/08/2025 1:00 PM EDT Appointment Radiology [address] [place] [address] [place] [address] XR CHEST 2V FRONTAL/LAT 01/11/2025 9:30 AM EDT Office Visit Pulmonary Medicine [address] [place] [address] Triston Riggs MD [address] [place] [address] 4-6 weeks 05/21/2025 2:00 PM EST Office Visit Cardiology [address] [place] [address] [place] [address] [facility] [place] [address] 6 month follow up documented as of this encounter Goals Goal Patient Goal Type Associated Problems Recent Progress Patient-Stated? Author Blood Pressure < 130/80 Blood Pressure 120/74( 025 10:15 PM EDT) No Sung Hartley MD documented as of this encounter Visit Diagnoses Not on filedocumented in this encounter Care Teams Central Office Maintainer Relationship Specialty Start [place] [address] [place] [address] PCP - General Family Medicine 12/29/23 Jere Sales MD [address] [address] Referring Gastroenterology 12/05/20 Calin Gotti DO [address] [place] [address] Internal Medicine 10/16/23 documented as of this encounter
--- OUTSIDE RECORDS SUMMARY | 2024-12-11 11:14 | XMS_ITS | Encounter Summary ---
Author Organization [facility] Address [address] [place] [address] Care Team Providers Care Arborist Representative Name Role Phone Jere Sales MD Unavailable [phone] Calin Gotti DO Unavailable [phone] Jose Antonio Meyers MD Primary Care Provider [phone] Source Comments In the event this information is protected by the Federal Confidentiality of Alcohol and Drug AbusePatient Records regulations: The Federal rules restrict any use of the information to criminally investigate or prosecute any alcohol or drug abuse patient.[facility] Encounter Details Date Type Department Care Team (Late st Contact Info) Description 09/18/2024 Patient Msg Gastroenterology [address] [id number] Provider, [facility] Procedure Instructions for EGD scheduled on 09/25 Social History Tobacco Use Types Packs/Day Years Used Date Smoking Tobacco: Never Smokeless Tobacco: Never Alcohol Use Standard Drinks/Week Comments Yes 0 (1 standard drink = 0.6 oz pure alcohol) socially, no drink since 06/2023 [facility] Utilities Answer Date Recorded In the [...] place to sleep or slept in a fpc (including now)? No 11/21/2023 Area Deprivation Index Answer Date Hari rded National Score (1-100), lower number is lower ri sk 68 12/11/2023 State Score (1-10), lower number is lower risk 5 12/11/2023 Data from: https://www.neighborhoodatlas.medicine.[facility].edu/. Last address used for calculation [address] [...] Assessment Author No 12/26/2023 4:30 PM EDT Orladno Welsh RN * Because of a physical, [...] EDT [place] [address] [place] [address] [place] [address] [place] [address] Follow-up 12/16/2024 12:30 PM EDT Office Visit [facility]ascular [facility] [address] [facility] [place] [address] Extremity cyanosis [R23.0] 12/16/2024 3:30 PM EDT Office Visit Vascular Surgery [address] [facility] [address] Extremity cyanosis [R23.0] 12/22/2024 6:00 PM EDT [facility] Gastroenterology [address] [address] Araseli Wall, LETICIA.INSTRUCTIONAL TECHNOLOGIST [address] [facility] [address] Elevated alkaline phosphatase leve 01/08/2025 1:00 PM EDT Appointment Radiology [address] [place] [address] XR CHEST 2V FRONTAL/LAT 01/11/2025 9:30 AM EDT Office Visit Pulmonary Medicine [address] [place] [address] Triston Riggs MD [address] [place] [address] 4-6 weeks 05/21/2025 2:00 PM EST Office Visit Cardiology [address] [place] [address] [place] [address] [facility] [place] [address] 6 month follow up documented as of this encounter Goals Goal Patient Goal Type Associated Problems Recent Progress Patient-Stated? Author Blood Pressure < 130/80 Blood Pressure 120/74( 025 10:15 PM EDT) No Sung Hartley MD documented as of this encounter Visit Diagnoses Not on filedocumented in this encounter Care Teams Arborist Representative Relationship Specialty Start [place] [address] [place] [address] PCP - General Family Medicine 12/29/23 Jere Sales MD [address] [place] [address] [place] [address] Referring Gastroenterology 12/05/20 Calin Gotti DO [address] [place] [address] Internal Medicine 10/16/23 documented as of this encounter
--- OUTSIDE RECORDS SUMMARY | 2024-12-11 11:15 | XMS_ITS | Patient Health Record ---
Author Organization [facility] in [place] Address [address] [place] [address] Care Team Providers Care Assistant Public Defender Name Role Phone Dawit Lorenz DO Primary Care Provider Tasneem fernandez Shila Gottihan Unavailable [phone] Allergies Allergen (clinical drug ingredient) Drug/Non Drug [...] nts Arexvy Unknown 05/27/2024 Administered Flu, Fluad (81051) 65 yrs + High Dose Seasonal (0257-8787) Unknown 05/27/2024 Administered Flu, Fluad (11751) 66 yrs + Trivalent (5905-4514) Unknown 05/09/2020 Administered Pneumococcal (Pneumovax 23) Unknown [...] Risk Notes Problem Erythrocyte sedimentation rate raised (931937916) Elevated erythrocyte sedimentation rate (R70.0) Active confirmed Problem Hyperlipidemia (67219664) Hyperlipidemia (E78.5) Active confirmed Problem Coronary artery disease (32619482) CAD (coronary artery disease) (I25.10) Active confirmed Problem Pleural effusion (31583137) Pleural effusion (J90) Active confirmed Problem Multiple pulmonary nodules (067230719) Multiple pulmonary nodules (R91.8) Active confirmed Problem Calcified lymph nodes (141548932) Calcified lymph nodes (I89.8) Active confirmed Problem Pericardial effusion (372186521) Pericardial effusion (I31.39) Active confirmed Vital Signs Heart Rate 83 /min 07/21/2024 Temperature 97.0 degrees Fahrenheit 07/21/2024 Respiratory Rate 18 /min 07/21/2024 Oximetry 96.8 % 07/21/2024 Blood pressure diastolic 73 mm Hg 07/21/2024 Height 72 in 07/21/2024 Blood pressure systolic 113 mm Hg 07/21/2024 Weight 196.4 lbs 07/21/2024 BMI 26.63 kg/m2 07/21/2024 Encounters Encounter Location Date Provider Diagnosis Pulmonary Medicine [place] [address] [place] [address] 01/20/2024 Calin [facility] Pulmonary Medicine [place] [address] [place] [address] 01/15/2024 Calin Gotti Chronic cough R05.3 ; Pleural effusion J90 ; Multiple pulmonary nodules R91.8 ; Pericardial effusion I31.39 ; Elevated erythrocyte sedimentation rate R70.0 and Calcified lymph nodes I89.8 Pul[facility] [place] [address] [place] [address] 07/21/2024 Calin Gotti Pleural effusion J90 Assessments [...] drained Saturday. He has seen rheumatology at [facility] and they have not been able to determine a cause. Cytology/patholog y have returned negative for malignancy. I am not of much assistance here at [facility] given our small size. Other thought would be infectious disease. Could also consider checking cytology yet again, but if this really were malignant, overall yield with repeated thoracenteses only approaches roughly 70% of the time for positive diagnosis of malignant effusion. I suggest patient follow-up with [facility] pulmonary for second opinion. Patient [...] able to offer would be referral to [facility] in [place], [place] for a third opinion. At this [...] Coverage End Date [employer] [address] [place], [place] [id number] Bryan Harris Self - patient is the [...]
--- OUTSIDE RECORDS SUMMARY | 2024-12-11 11:15 | XMS_ITS | Encounter Summary ---
Author Organization [facility] Address [address] [place] [address] Care Team Providers Care Access Rn Name Role Phone Jere Sales MD Unavailable [phone] Calin Gotti DO Unavailable [phone] Jose Antonio Meyers MD Primary Care Provider [phone] Source Comments In the event this information is protected by the Federal Confidentiality of Alcohol and Drug AbusePatient Records regulations: The Federal rules restrict any use of the information to criminally investigate or prosecute any alcohol or drug abuse patient.[facility] Reason for Visit * Reason Comments Radiology XR Encounter Details Date Type Department Care Team (Late st Contact Info) Description 08/13/2024 Radiology Radiology [address] [place], [place] [phone] Joan Hillman, RT(R) Radiology XR Social History Tobacco Use Types Packs/Day Years Used Date Smoking Tobacco: Never Smokeless Tobacco: Never Alcohol Use Standard Drinks/Week Comments Yes 0 (1 standard drink = 0.6 oz pure alcohol) socially, no drink since 06/2023 [facility] Utilities Answer Date Recorded In the past [...] risk 5 12/11/2023 Data from: https://www.neighborhoodatlas.medicine.[facility].edu/. Last address used for calculation [address] [...] PATIENT PRESENTS WITH AN IMPLANTABLE OR ATTACHED PHYSICAL THERAPY AID: No RADIOLOGY DEPARTMENT: General X-ray: Exam(s) Completed: Chest X-Ray PERIPHERAL IV DATA: Not applicable SIGNED BY: RT Gaviota(R) August 13, 2024 9:43 AM documented in this encounter Plan of Treatment Upcoming Encounters Date Type Department Care Team (Late st Contact Info) Description 12/15/2024 11:15 AM EDT [place] [address] [facility] [place] [address] [place] [address] [facility] [place] [address] Follow-up 12/16/2024 12:30 PM EDT Office Visit Vascular Surgery [address] [place] [address] Extremity cyanosis [R23.0] 12/16/2024 3:30 PM EDT Office Visit Vascular Surgery [address] [place] [address] Extremity cyanosis [R23.0] 12/22/2024 6:00 PM EDT [facility] Gastroenterology [address] [address] Araseli Wall APRN.CERTIFIED MEDICAL TRANSCRIPTIONIST [address] [place] [address] Elevated alkaline phosphatase leve 01/08/2025 1:00 PM EDT Appointment Radiology [address] [place] [address] [place] [address] XR CHEST 2V FRONTAL/LAT 01/11/2025 9:30 AM EDT Office Visit Pulmonary Medicine [address] [place] [address] Triston Riggs MD [address] [place] [address] 4-6 weeks 05/21/2025 2:00 PM EST Office Visit Cardiology [address] [place] [address] [place] [address] [facility] [place] [address] 6 month follow up documented as of this encounter Goals Goal Patient Goal Type Associated Problems Recent Progress Patient-Stated? Author Blood Pressure < 130/80 Blood Pressure 120/74( 025 10:15 PM EDT) No Sung Hartley MD documented as of this encounter Visit Diagnoses Not on filedocumented in this encounter Care Teams Access Rn Relationship Specialty Start [place] [address] [place] [address] PCP - General Family Medicine 12/29/23 Jere Sales MD [address] [address] Referring Gastroenterology 12/05/20 Calin Gotti DO [address] [place] [address] Internal Medicine 10/16/23 documented as of this encounter
--- OUTSIDE RECORDS SUMMARY | 2024-12-11 11:15 | XMS_ITS | Encounter Summary ---
Author Organization [facility] Address [address] [place] [address] Care Team Providers Care Hand Or Machine Paster Name Role Phone Jere Sales MD Unavailable [phone] Calin Gotti DO Unavailable [phone] Jose Antonio Meyers MD Primary Care Provider [phone] Source Comments In the event this information is protected by the Federal Confidentiality of Alcohol and Drug AbusePatient Records regulations: The Federal rules restrict any use of the information to criminally investigate or prosecute any alcohol or drug abuse patient.[facility] Encounter Details Date Type Department Care Team (Late st Contact Info) Description 07/07/2024 Get Medical Advice Gastroenterology [address] [id number] Sue Terrell MD [address] [place] [address] Willie Kimberly Social History Tobacco [...] is lower risk 5 12/11/2023 Data from: https://www.neighborhoodatlas.medicine.[facility].edu/. Last address used for calculation [address] [...] EDT [place] [address] [place] [address] [place] [address] [place] [address] Follow-up 12/16/2024 12:30 PM EDT Office Visit Vascular Surgery 5700 [place] [address] Extremity cyanosis [R23.0] 12/16/2024 3:30 PM EDT Office Visit Vascular Surgery 5700 [place] [address] Extremity cyanosis [R23.0] 12/22/2024 6:00 PM EDT [facility] Gastroenterology [address] [address] Araseli Wall APRN.TAKE UP SUPERVISOR [address] [facility] [place] [address] Elevated alkaline phosphatase leve 01/08/2025 1:00 PM EDT Appointment Radiology [address] [place] [address] [place] [address] XR CHEST 2V FRONTAL/LAT 01/11/2025 9:30 AM EDT Office Visit Pulmonary Medicine [address] [place] [address] Triston Riggs MD [address] [place] [address] 4-6 weeks 05/21/2025 2:00 PM EST Office Visit Cardiology [address] [place] [address] [place] [address] [facility] [place] [address] 6 month follow up documented as of this encounter Goals Goal Patient Goal Type Associated Problems Recent Progress Patient-Stated? Author Blood Pressure < 130/80 Blood Pressure 120/74( 025 10:15 PM EDT) No Sung Hartley MD documented as of this encounter Visit Diagnoses Not on filedocumented in this encounter Care Teams Hand Or Machine Paster Relationship Specialty Start [place] [address] [facility] [place] [place] [address] PCP - General Family Medicine 12/29/23 Jere Sales MD [address] [address] Referring Gastroenterology 12/05/20 Calin Gotti DO [address] [place] [address] Internal Medicine 10/16/23 documented as of this encounter
--- OUTSIDE RECORDS SUMMARY | 2024-12-11 11:15 | XMS_ITS | Encounter Summary ---
Author Organization [facility] Address [address] [place] [address] Care Team Providers Care Pockets And Pieces Necktie Operator Name Role Phone Jere Sales MD Unavailable [phone] Calin Gotti DO Unavailable [phone] Jose Antonio Meyers MD Primary Care Provider [phone] Source Comments In the event this information is protected by the Federal Confidentiality of Alcohol and Drug AbusePatient Records regulations: The Federal rules restrict any use of the information to criminally investigate or prosecute any alcohol or drug abuse patient.[facility] Encounter Details Date Type Department Care Team (Late st Contact Info) Description 11/24/2024 Results Follow-Up Cardiology [address] [facility] [place] [address] [place] [address] [facility]. [place], [place] [id number] Social History Tobacco Use Types Packs/Day Years [...] place to sleep or slept in a fci (including now)? No 11/21/2023 Area Deprivation Index Answer Date Hari rded National Score (1-100), lower number is lower ri sk 68 12/11/2023 State Score (1-10), lower number is lower risk 5 12/11/2023 Data from: https://www.neighborhoodatlas.medicine.[facility].edu/. Last address used for calculation [...] EDT [place] [address] [place] [address] [place] [address] [place] [address] Follow-up 12/16/2024 12:30 PM EDT Office Visit Vascular Surgery [address]00 [facility] [place] [address] Extremity cyanosis [R23.0] 12/16/2024 3:30 PM EDT Office Visit Vascular Surgery 5700 [place] [address] Extremity cyanosis [R23.0] 12/22/2024 6:00 PM EDT [facility] Gastroenterology [address] [address] Araseli Wall APRN.PHONE SCREENER [address] [place] [address] Elevated alkaline phosphatase leve 01/08/2025 1:00 PM EDT Appointment Radiology [address] [place] [address] [place] [address] XR CHEST 2V FRONTAL/LAT 01/11/2025 9:30 AM EDT Office Visit Pulmonary Medicine [address] [place] [address] Triston Riggs MD [address] [place] [address] 4-6 weeks 05/21/2025 2:00 PM EST Office Visit Cardiology [address] [place] [address] [place] [address] [facility] [place] [address] 6 month follow up documented as of this encounter Goals Goal Patient Goal Type Associated Problems Recent Progress Patient-Stated? Author Blood Pressure < 130/80 Blood Pressure 120/74( 025 10:15 PM EDT) No Sung Hartley MD documented as of this encounter Visit Diagnoses Not on filedocumented in this encounter Care Teams Pockets And Pieces Necktie Operator Relationship Specialty Start [place] [address] [facility] [place] [address] PCP - General Family Medicine 12/29/23 Jere Sales MD [address] [address] Referring Gastroenterology 12/05/20 Calin Gotti DO [address] [place] [address] Internal Medicine 10/16/23 documented as of this encounter
--- OUTSIDE RECORDS SUMMARY | 2024-12-11 11:16 | XMS_ITS | Encounter Summary ---
Author Organization [facility] Address [address] [place] [address] Care Team Providers Care Preflight Inspector Name Role Phone Jere Sales MD Unavailable [phone] Calin Gotti DO Unavailable [phone] Jose Antonio Meyers MD Primary Care Provider [phone] Source Comments In the event this information is protected by the Federal Confidentiality of Alcohol and Drug AbusePatient Records regulations: The Federal rules restrict any use of the information to criminally investigate or prosecute any alcohol or drug abuse patient.[facility] Encounter Details Date Type Department Care Team (Late st Contact Info) Description 10/15/2024 Results Follow-Up Gastroenterology [address] [address] Xiomara Santoyo APRN.[place] [address]70 [place] [address] Social History Tobacco Use Types [...] is lower risk 5 12/11/2023 Data from: https://www.neighborhoodatlas.medicine.[facility].edu/. Last address used for calculation [address] [...] EDT [place] [address] [place] [address] [place] [address] [place] [address] Follow-up 12/16/2024 12:30 PM EDT Office Visit Vascular Surgery [address]00 [facility] [place] [address] Extremity cyanosis [R23.0] 12/16/2024 3:30 PM EDT Office Visit Vascular Surgery 5700 [place] [address] Extremity cyanosis [R23.0] 12/22/2024 6:00 PM EDT [facility] Gastroenterology [address] [address] Araseli Wall APRN.LOUVER MORTISER OPERATOR [address] [place] [address] Elevated alkaline phosphatase leve 01/08/2025 1:00 PM EDT Appointment Radiology [address] [place] [address] [place] [address] XR CHEST 2V FRONTAL/LAT 01/11/2025 9:30 AM EDT Office Visit Pulmonary Medicine [address] [place] [address] Triston Riggs MD [address] [place] [address] 4-6 weeks 05/21/2025 2:00 PM EST Office Visit Cardiology [address] [place] [address] [place] [address] [facility] [place] [address] 6 month follow up documented as of this encounter Goals Goal Patient Goal Type Associated Problems Recent Progress Patient-Stated? Author Blood Pressure < 130/80 Blood Pressure 120/74( 025 10:15 PM EDT) No Sung Hartley MD documented as of this encounter Visit Diagnoses Not on filedocumented in this encounter Care Teams Preflight Inspector Relationship Specialty Start [place] [address] [facility] [place] [address] PCP - General Family Medicine 12/29/23 Jere Sales MD [address] [address] Referring Gastroenterology 12/05/20 Calin Gotti DO [address] [place] [address] Internal Medicine 10/16/23 documented as of this encounter
--- OUTSIDE RECORDS SUMMARY | 2024-12-11 11:16 | XMS_ITS | Encounter Summary ---
Author Organization [facility] Address [address] [place] [address] Care Team Providers Care Sawmill Manager Name Role Phone Jere Sales MD Unavailable [phone] Calin Gotti DO Unavailable [phone] Jose Antonio Meyers MD Primary Care Provider [phone] Source Comments In the event this information is protected by the Federal Confidentiality of Alcohol and Drug AbusePatient Records regulations: The Federal rules restrict any use of the information to criminally investigate or prosecute any alcohol or drug abuse patient.[facility] Encounter Details Date Type Department Care Team (Late st Contact Info) Description 10/19/2024 Get Medical Advice Pulmonary Medicine [address] [place], [place] [phone] Katerina Pascual PA-C [address] [place] [address] Willie Harris 1950 Social History Tobacco Use Types Packs/Day Years Used Date Smoking Tobacco: Never Smokeless Tobacco: Never Alcohol Use Standard Drinks/Week Comments Yes 0 (1 standard drink = 0.6 oz pure alcohol) socially, no drink since 06/2023 [facility] Utilities Answer Date Recorded In the past [...] EDT [place] [address] [place] [address] [place] [address] [place] [address] Follow-up 12/16/2024 12:30 PM EDT Office Visit Vascular Surgery 5700 [facility] [place] [address] Extremity cyanosis [R23.0] 12/16/2024 3:30 PM EDT Office Visit Vascular Surgery [address] [place] [address] Extremity cyanosis [R23.0] 12/22/2024 6:00 PM EDT [facility] Gastroenterology [address] [address] Araseli Wall APRN.CLIP BOLTER AND WRAPPER [address] [place] [address] Elevated alkaline phosphatase leve 01/08/2025 1:00 PM EDT Appointment Radiology [address] [place] [address] [place] [address] XR CHEST 2V FRONTAL/LAT 01/11/2025 9:30 AM EDT Office Visit Pulmonary Medicine [address] [place] [address] Triston Riggs MD [address] [place] [address] 4-6 weeks 05/21/2025 2:00 PM EST Office Visit Cardiology [address] [place] [address] [place] [address] [facility] [place] [address] 6 month follow up documented as of this encounter Goals Goal Patient Goal Type Associated Problems Recent Progress Patient-Stated? Author Blood Pressure < 130/80 Blood Pressure 120/74( 025 10:15 PM EDT) No Sung Hartley MD documented as of this encounter Visit Diagnoses Not on filedocumented in this encounter Care Teams Sawmill Manager Relationship Specialty Start [place] [address] [place] [address] PCP - General Family Medicine 12/29/23 Jere Sales MD [address] [address] Referring Gastroenterology 12/05/20 Calin Gotti DO [address] [place] [address] Internal Medicine 10/16/23 documented as of this encounter
--- OUTSIDE RECORDS SUMMARY | 2024-12-11 11:16 | XMS_ITS | Encounter Summary ---
Author Organization [facility] Address [address] [place] [address] Care Team Providers Care Machine Brusher Name Role Phone Jere Sales MD Unavailable [phone] Calin Gotti DO Unavailable [phone] Jose Antonio Meyers MD Primary Care Provider [phone] Source Comments In the event this information is protected by the Federal Confidentiality of Alcohol and Drug AbusePatient Records regulations: The Federal rules restrict any use of the information to criminally investigate or prosecute any alcohol or drug abuse patient.[facility] Encounter Details Date Type Department Care Team (Late st Contact Info) Description 11/17/2024 Patient Msg [facility] [address] [place], [place] [id number] Provider, [facility] Follow Up Appointment Social History Tobacco Use Types Packs/Day Years Used Date Smoking Tobacco: Never Smokeless Tobacco: Never Alcohol Use Standard Drinks/Week Comments Yes 0 (1 standard drink = 0.6 oz pure alcohol) socially, no drink since 06/2023 [facility] Utilities Answer Date Recorded In the past [...] is lower risk 5 12/11/2023 Data from: https://www.neighborhoodatlas.medicine.[facility].edu/. Last address used for calculation [address] [...] Author No 12/26/2023 4:30 PM EDT Orlando Wlesh RN * Because of a physical, mental, [...] EDT [place] [address] [place] [address] [place] [address] [place] [address] Follow-up 12/16/2024 12:30 PM EDT Office Visit Vascular Surgery [address] [place] [address] Extremity cyanosis [R23.0] 12/16/2024 3:30 PM EDT Office Visit Vascular Surgery [address] [place] [address] Extremity cyanosis [R23.0] 12/22/2024 6:[address] [facility] Gastroenterology [address] [address] Araseli Wall, PAN PULLER.DATA CODER OPERATOR [address] [facility] [place] [address] Elevated alkaline phosphatase leve 01/08/2025 1:00 PM EDT Appointment Radiology [address] [facility] [address] [place], [place] [address] XR CHEST 2V FRONTAL/LAT 01/11/2025 9:30 AM EDT Office Visit Pulmonary Medicine [address] [place] [address] Triston Riggs MD [address] [place], [place] [address] 4-6 weeks 05/21/2025 2:00 PM EST Office Visit Cardiology [address] [place] [address] [place] [address] [place] [address] 6 month follow up documented as of this encounter Goals Goal Patient Goal Type Associated Problems Recent Progress Patient-Stated? Author Blood Pressure < 130/80 Blood Pressure 120/74( 025 10:15 PM EDT) No Sung Hartley MD documented as of this encounter Visit Diagnoses Not on filedocumented in this encounter Care Teams Machine Brusher Relationship Specialty Start [place] [address] [place] [address] PCP - General Family Medicine 12/29/23 Jere Sales MD [address] [address] Referring Gastroenterology 12/05/20 Calin Gotti DO [address] [place] [address] Internal Medicine 10/16/23 documented as of this encounter
--- OUTSIDE RECORDS SUMMARY | 2024-12-11 11:16 | XMS_ITS | Encounter Summary ---
Author Organization [facility] Address [address] [place] [address] Care Team Providers Care Floor Manager Name Role Phone Jere Sales MD Unavailable [phone] Calin Gotti DO Unavailable [phone] Jose Antonio Meyers MD Primary Care Provider [phone] Source Comments In the event this information is protected by the Federal Confidentiality of Alcohol and Drug AbusePatient Records regulations: The Federal rules restrict any use of the information to criminally investigate or prosecute any alcohol or drug abuse patient.[facility] Encounter Details Date Type Department Care Team (Late st Contact Info) Description 04/24/2024 Get Medical Advice Rheumatology [address] [id number] Jailyn Mahoney MD [address] [place] [address] Willie Harris Social History Tobacco Use Types Packs/Day Years Used Date Smoking Tobacco: Never Smokeless Tobacco: Never Alcohol Use Standard Drinks/Week Comments Yes 0 (1 standard drink = 0.6 oz pure alcohol) socially, no drink since 06/2023 [facility] Utilities Answer Date Recorded In [...] is lower risk 5 12/11/2023 Data from: https://www.neighborhoodatlas.medicine.[facility].edu/. Last address used for calculation 2230 [...] EDT [place] [address] [place] [address] [place] [address] [place] [address] Follow-up 12/16/2024 12:30 PM EDT Office Visit Vascular Surgery [address] [place] [address] Extremity cyanosis [R23.0] 12/16/2024 3:30 PM EDT Office Visit Vascular Surgery 5700 [place] [address] Extremity cyanosis [R23.0] 12/22/2024 6:00 PM EDT [facility] Gastroenterology [address] [address] Araseli Wall APRN.CIVILIAN JAIL OFFICER [address] [place] [address] Elevated alkaline phosphatase leve 01/08/2025 1:00 PM EDT Appointment Radiology [address] [place] [address] [place] [address] XR CHEST 2V FRONTAL/LAT 01/11/2025 9:30 AM EDT Office Visit Pulmonary Medicine [address] [place] [address] Triston Riggs MD [address] [place] [address] 4-6 weeks 05/21/2025 2:00 PM EST Office Visit Cardiology [address] [place] [address] [place] [address] [facility] [place] [address] 6 month follow up documented as of this encounter Goals Goal Patient Goal Type Associated Problems Recent Progress Patient-Stated? Author Blood Pressure < 130/80 Blood Pressure 120/74( 025 10:15 PM EDT) No Sung Hartley MD documented as of this encounter Visit Diagnoses Diagnosis Hypokalemia- Primary Hypopotassemia documented in this encounter Care Teams Floor Manager Relationship Specialty [place] [address] [place] [address] PCP - General Family Medicine 12/29/23 Jere Sales MD [address] [address] Referring Gastroenterology 12/05/20 Calin Gotti DO [address] [place] [address] Internal Medicine 10/16/23 documented as of this encounter
--- OUTSIDE RECORDS SUMMARY | 2024-12-11 11:16 | XMS_ITS | Encounter Summary ---
Author Organization [facility] Address [address] [place] [address] Care Team Providers Care Hand Striper Name Role Phone Jere Sales MD Unavailable [phone] Calin Gotti DO Unavailable [phone] Jose Antonio Meyers MD Primary Care Provider [phone] Source Comments In the event this information is protected by the Federal Confidentiality of Alcohol and Drug AbusePatient Records regulations: The Federal rules restrict any use of the information to criminally investigate or prosecute any alcohol or drug abuse patient.[facility] Encounter Details Date Type Department Care Team (Late st Contact Info) Description 10/31/2024 Results Follow-Up Gastroenterology [address] [address] Xiomara Santoyo APRN.[place] [address] [place] [address] Social History Tobacco Use Types [...] lower risk 5 12/11/2023 Data from: https://www.neighborhoodatlas.medicine.[facility].edu/. Last address used for calculation [...] EDT [place] [address] [place] [address] [place] [address] [place] [address] Follow-up 12/16/2024 12:30 PM EDT Office Visit Vascular Surgery [address] [place] [address] Extremity cyanosis [R23.0] 12/16/2024 3:30 PM EDT Office Visit Vascular Surgery 5700 [place] [address] Extremity cyanosis [R23.0] 12/22/2024 6:00 PM EDT [facility] Gastroenterology [address] [address] Araseli Wall APRN.SCOURING MACHINE TENDER [address] [place] [address] Elevated alkaline phosphatase leve 01/08/2025 1:00 PM EDT Appointment Radiology [address] [place] [address] [place] [address] XR CHEST 2V FRONTAL/LAT 01/11/2025 9:30 AM EDT Office Visit Pulmonary Medicine [address] [place] [address] Triston Riggs MD [address] [place] [address] 4-6 weeks 05/21/2025 2:00 PM EST Office Visit Cardiology [address] [place] [address] [place] [address] [facility] [place] [address] 6 month follow up documented as of this encounter Goals Goal Patient Goal Type Associated Problems Recent Progress Patient-Stated? Author Blood Pressure < 130/80 Blood Pressure 120/74( 025 10:15 PM EDT) No Sung Hartley MD documented as of this encounter Visit Diagnoses Not on filedocumented in this encounter Care Teams Hand Striper Relationship Specialty Start [place] [address] [place] [address] PCP - General Family Medicine 12/29/23 Jere Sales MD [address] [address] Referring Gastroenterology 12/05/20 Calin Gotti DO [address] [place] [address] Internal Medicine 10/16/23 documented as of this encounter
--- OUTSIDE RECORDS SUMMARY | 2024-12-11 11:16 | XMS_ITS | Encounter Summary ---
Author Organization [facility] Address [address] [place] [address] Care Team Providers Care Configuration Management Architect Name Role Phone Jere Sales MD Unavailable [phone] Cailn Gotti DO Unavailable [phone] Jose Antonio Meyers MD Primary Care Provider [phone] Source Comments In the event this information is protected by the Federal Confidentiality of Alcohol and Drug AbusePatient Records regulations: The Federal rules restrict any use of the information to criminally investigate or prosecute any alcohol or drug abuse patient.[facility] Encounter Details Date Type Department Care Team (Late st Contact Info) Description 10/15/2024 Results Follow-Up Gastroenterology [address] [address] Xiomara Santoyo APRN.[place] [address] [place] [address] Social History Tobacco Use Types Packs/Day Years Used Date Smoking Tobacco: Never Smokeless Tobacco: Never Alcohol Use Standard Drinks/Week Comments Yes 0 (1 standard drink = 0.6 oz pure alcohol) socially, no drink since 06/2023 [facility] Utilities Answer Date Recorded In the past [...] risk 5 12/11/2023 Data from: https://www.neighborhoodatlas.medicine.[facility].edu/. Last address used for calculation 2230 [...] EDT [place] [address] [place] [address] [place] [address] [place] [address] Follow-up 12/16/2024 12:30 PM EDT Office Visit Vascular Surgery 57[address] [place] [address] Extremity cyanosis [R23.0] 12/16/2024 3:30 PM EDT Office Visit Vascular Surgery 5700 [place] [address] Extremity cyanosis [R23.0] 12/22/2024 6:00 PM EDT [facility] Gastroenterology [address] [address] Araseli Wall APRN.SAMPLE WASHER [address] [place] [address] Elevated alkaline phosphatase leve 01/08/2025 1:00 PM EDT Appointment Radiology [address] [place] [address] [place] [address] XR CHEST 2V FRONTAL/LAT 01/11/2025 9:30 AM EDT Office Visit Pulmonary Medicine [address] [place] [address] Triston Riggs MD 95[address] [place] [address] 4-6 weeks 05/21/2025 2:00 PM EST Office Visit Cardiology [address] [place] [address] [place] [address] [place] [address] 6 month follow up documented as of this encounter Goals Goal Patient Goal Type Associated Problems Recent Progress Patient-Stated? Author Blood Pressure < 130/80 Blood Pressure 120/74( 025 10:15 PM EDT) No Sung Hartley MD documented as of this encounter Visit Diagnoses Not on filedocumented in this encounter Care Teams Configuration Management Architect Relationship Specialty Start [place] [address] [facility] [address] PCP - General Family Medicine 12/29/23 Jere Sales MD [address] [address] Referring Gastroenterology 12/05/20 Calin Gotti DO [address] [place] [address] Internal Medicine 10/16/23 documented as of this encounter
--- OUTSIDE RECORDS SUMMARY | 2024-12-11 11:16 | XMS_ITS | Encounter Summary ---
Author Organization [facility] Address [address] [place] [address] Care Team Providers Care Florist Helper Name Role Phone Jere Sales MD Unavailable [phone] Calin Gotti DO Unavailable [phone] Jose Antonio Meyers MD Primary Care Provider [phone] Source Comments In the event this information is protected by the Federal Confidentiality of Alcohol and Drug AbusePatient Records regulations: The Federal rules restrict any use of the information to criminally investigate or prosecute any alcohol or drug abuse patient.[facility] Reason for Visit * Reason Comments Patient Question Encounter Details Date Type Department Care Team (Late st Contact Info) Description 11/17/2024 Telephone Pulmonary Medicine [address] [phone] Amanda Brooks (Pss) Patient Question Social History Tobacco Use Types Packs/Day Years Used Date Smoking Tobacco: Never Smokeless Tobacco: Never Alcohol Use Standard Drinks/Week Comments Yes 0 (1 standard drink = 0.6 oz pure alcohol) socially, no drink since 06/2023 [facility] Utilities Answer Date Recorded In [...] is lower risk 5 12/11/2023 Data from: https://www.neighborhoodatlas.medicine.[facility].edu/. Last address used for [...] with physician. She can be reached at [phone] She asked if a detailed voicemail can be left if somehow she misses the call documented in this encounter Plan of Treatment Upcoming Encounters Date Type Department Care Team (Late st Contact Info) Description 12/15/2024 11:15 AM EDT [place] [address] [place] [address] [place] [address] [place] [address] Follow-up 12/16/2024 12:30 PM EDT Office Visit Vascular Surgery 57[address] [place] [address] Extremity cyanosis [R23.0] 12/16/2024 3:30 PM EDT Office Visit Vascular Surgery 5700 [place] [address] Extremity cyanosis [R23.0] 12/22/2024 6:00 PM EDT [facility] Gastroenterology [address] [address] Araseli Wall APRN.SANDBLASTER SUPERVISOR 9500 [place] [address] Elevated alkaline phosphatase leve 01/08/2025 1:00 PM EDT Appointment Radiology [address] [place] [address] [place] [address] XR CHEST 2V FRONTAL/LAT 01/11/2025 9:30 AM EDT Office Visit Pulmonary Medicine [address] [place] [address] Triston Riggs MD 9502 [place] [address] 4-6 weeks 05/21/2025 2:00 PM EST Office Visit Cardiology [address] [place] [address] [place] [address] [facility] [address] 6 month follow up documented as of this encounter Goals Goal Patient Goal Type Associated Problems Recent Progress Patient-Stated? Author Blood Pressure < 130/80 Blood Pressure 120/74( 025 10:15 PM EDT) No Sung Hartley MD documented as of this encounter Visit Diagnoses Not on filedocumented in this encounter Care Teams Florist Helper Relationship Specialty Start [place] [address] [place] [address] PCP - General Family Medicine 12/29/23 Jere Sales MD [address] [address] Referring Gastroenterology 12/05/20 Calin Gotti DO [address] [place] [address] Internal Medicine 10/16/23 documented as of this encounter
--- OUTSIDE RECORDS SUMMARY | 2024-12-11 11:16 | XMS_ITS | Encounter Summary ---
Author Organization [facility] Address [address] [place] [address] Care Team Providers Care Surveillance Agent Name Role Phone Jere Sales MD Unavailable [phone] Calin Gotti DO Unavailable [phone] Jose Antonio Meyers MD Primary Care Provider [phone] Source Comments In the event this information is protected by the Federal Confidentiality of Alcohol and Drug AbusePatient Records regulations: The Federal rules restrict any use of the information to criminally investigate or prosecute any alcohol or drug abuse patient.[facility] Encounter Details Date Type Department Care Team (Late st Contact Info) Description 11/13/2024 Get Medical Advice Gastroenterology [address] [address] Provider, Migel Harris. 1950 Social History Tobacco [...] risk 5 12/11/2023 Data from: https://www.neighborhoodatlas.medicine.[facility].edu/. Last address used for calculation 2230 12/11/2023 [...] EDT [place] [address] [place] [address] [place] [address] [place] [address] Follow-up 12/16/2024 12:30 PM EDT Office Visit Vascular Surgery [address] [facility] [place] [address] Extremity cyanosis [R23.0] 12/16/2024 3:30 PM EDT Office Visit Vascular Surgery [address] [place] [address] Extremity cyanosis [R23.0] 12/22/2024 6:00 PM EDT [facility] Gastroenterology [address] [address] Araseli Wall, LETICIA.CANDY MIXER [address] [facility] [place] [address] Elevated alkaline phosphatase leve 01/08/2025 1:00 PM EDT Appointment Radiology [address] [facility] [place] [address] XR CHEST 2V FRONTAL/LAT 01/11/2025 9:30 AM EDT Office Visit Pulmonary Medicine [address] [place] [address] Triston Riggs MD 95[address] [place] [address] 4-6 weeks 05/21/2025 2:00 PM EST Office Visit Cardiology [address] [place] [address] [place] [address] [place] [address] 6 month follow up documented as of this encounter Goals Goal Patient Goal Type Associated Problems Recent Progress Patient-Stated? Author Blood Pressure < 130/80 Blood Pressure 120/74( 025 10:15 PM EDT) No Sung Hartley MD documented as of this encounter Visit Diagnoses Not on filedocumented in this encounter Care Teams Surveillance Agent Relationship Specialty Start [place] [address] [place] [address] PCP - General Family Medicine 12/29/23 Jere Sales MD [address] [address] [place] [address] Referring Gastroenterology 12/05/20 Calin Gotti DO [address] [place] [address] Internal Medicine 10/16/23 documented as of this encounter
--- OUTSIDE RECORDS SUMMARY | 2024-12-11 11:16 | XMS_ITS | Encounter Summary ---
Author Organization [facility] Address [address] [place] [address] Care Team Providers Care Offset Press Operator Name Role Phone Jere Sales MD Unavailable [phone] Calin Gotti DO Unavailable [phone] Jose Antonio Meyers MD Primary Care Provider [phone] Source Comments In the event this information is protected by the Federal Confidentiality of Alcohol and Drug AbusePatient Records regulations: The Federal rules restrict any use of the information to criminally investigate or prosecute any alcohol or drug abuse patient.[facility] Encounter Details Date Type Department Care Team (Late st Contact Info) Description 11/12/2024 Get Medical Advice Gastroenterology [address] [address] Provider, Migel Harris 1950 Social History Tobacco [...] EDT [place] [address] [place] [address] [place] [address] [place] [address] Follow-up 12/16/2024 12:30 PM EDT Office Visit Vascular Surgery 5700 [place] [address] Extremity cyanosis [R23.0] 12/16/2024 3:30 PM EDT Office Visit Vascular Surgery [address] [place] [address] Extremity cyanosis [R23.0] 12/22/2024 6:00 PM EDT [facility] Gastroenterology [address] [address] Araseli Wall, ASSISTANT BROKER.TEACHING DIETITIAN [address] [facility] [address] Elevated alkaline phosphatase leve 01/08/2025 1:00 PM EDT Appointment Radiology [address] [facility] [place] [address] XR CHEST 2V FRONTAL/LAT 01/11/2025 9:30 AM EDT Office Visit Pulmonary Medicine [address] [place] [address] Triston Riggs MD 9500 [place] [address] 4-6 weeks 05/21/2025 2:00 PM EST Office Visit Cardiology [address] [place] [address] [place] [address] [facility] [place] [address] 6 month follow up documented as of this encounter Goals Goal Patient Goal Type Associated Problems Recent Progress Patient-Stated? Author Blood Pressure < 130/80 Blood Pressure 120/74( 025 10:15 PM EDT) No Sung Hartley MD documented as of this encounter Visit Diagnoses Not on filedocumented in this encounter Care Teams Offset Press Operator Relationship Specialty Start [place] [address] [place] [address] PCP - General Family Medicine 12/29/23 Jere Sales MD [address] [address] Referring Gastroenterology 12/05/20 Calin Gotti DO [address] [place] [address] Internal Medicine 10/16/23 documented as of this encounter
--- OUTSIDE RECORDS SUMMARY | 2024-12-11 11:16 | XMS_ITS | Clinical Summary ---
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 1 Active atorvastatin (LIPITOR) 10 mg tablet Take 1 tablet by mouth once daily. 1 Active diclofenac (VOLTAREN) 1 % topical gel 4 Active calcium lfn-ysy-G3-Zn-c op-kian 250 mg-40 mg- 125 unit-3.75mg tab [...] characters) 11/20/2023: SURGERY:R VATS Pleural biopsy, R set up mechanic coil winding machines and doxycycline pleurodesis, R Pleurx catheter insertion, [...] - Controlled with current regimen of Fent RUG CLEANING SUPERVISOR, Tylenol 1000 mg q6hrs, oxycodone 5-10 mg [...] Description 11/25/2024 [place] [address] [place] [address] Jsoe Antonio Meyers MD Refill Request 11/24/2024 Results Follow-Up Cardiology [address] [facility] [place] [address] Zac Mendiola MD 11/23/2024 2:00 PM EDT - 11/23/2024 11:59 PM EDT Hospital Encounter Radiology [address] [place], [place] [id number] Hepatomegaly [R16.0] Discharge Disposition: Home 11/23/2024 12:00 PM EDT Office Visit Pulmonary Medicine [address] [place] [address] Triston Riggs MD Pleural effusion (Primary Dx); Pleuritis; Pericardial effusion (noninflammatory) (HCC); Lymphocytic colitis; Other ascites 11/23/2024 10:23 AM EDT - 11/23/2024 1:59 PM EDT Hospital Encounter Radiology [address] [address] Pleural effusion, not elsewhere classified [J90] Discharge Disposition: Home 11/23/2024 Telephone Thoracic Clinic [address] [place] [address] Ronaldo Ramos MD, PhD Received Outside Medical Records 11/20/2024 9:00 AM EDT Office Visit Cardiology [address] [place] [address] Zac Mendiola MD Extremity cyanosis (Primary Dx) 11/19/2024 4:20 PM EDT - 11/19/2024 5:20 PM EDT Surgery Admitting [address] [address] Triston Riggs MD REMOVAL TUNNELED PLUERAL CATH WITH CUFF 11/19/2024 4:19 PM EDT - 11/19/2024 5:00 PM EDT Hospital Encounter Admitting [address] [address] Triston Riggs MD Pleural effusion [J90] Discharge Disposition: Home 11/19/2024 2:00 PM EDT Office Visit Pulmonary Medicine [address] [place] [address] Triston Riggs MD Pleural effusion (Primary Dx) 11/19/2024 1:14 PM EDT - 11/19/2024 4:18 PM EDT Hospital Encounter Radiology [address] [place] [address] Pleural effusion [J90] Discharge Disposition: Home 11/17/2024 Telephone Pulmonary Medicine [address] [address] Amanda Brooks (Pss) Patient Question 11/17/2024 Patient [facility] [place] [facility] [place] [facility] [address] [place] [address] Provider, Ccf ER Follow Up Appointment 11/13/2024 1:00 PM EDT [place] [address] [facility] [address] Jose Antonio Meyers MD Anasarca (Primary Dx); Recurrent 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; Hepatomegaly; Hiatal hernia; Chronic gastritis without bleeding, unspecified gastritis type; Hypomagnesemia 11/13/2024 Get Medical Advice Gastroenterology [address] [address] Provider, Ccf Willie Harris. 1950 11/12/2024 1:27 PM EDT - 11/12/2024 7:04 PM EDT Emergency [facility] Emergency Department [address] [place] [address] Khurram Magallanes MD Ems, MD Ed Fluid retention, weight gain, abdominal pain, shakes, called in by MD Discharge Disposition: Home 11/12/2024 Get Medical Advice Gastroenterology [address] [address] Provider, Ccf Willie Harris 1950 11/12/2024 Travel 11/04/2024 12:54 PM EDT - 11/04/2024 11:59 PM EDT Hospital Encounter [facility] [place] Scan [address] [place] [address] Other ascites [R18.8] Discharge Disposition: Home 11/04/2024 12:54 PM EDT - 11/04/2024 11:59 PM EDT Hospital Encounter [facility] [place] [address] [place] [address] Discharge Disposition: Home 11/04/2024 Telephone [facility] [place] [address] [place] [address] Imaging[facility] Radiology CT; Patient Update 11/03/2024 Results Follow-Up Gastroenterology [address] [address] Xiomara Santoyo, LETICIA.PLASTIC FIXTURE BUILDER 11/03/2024 [place] [address] [place] [address] Jose Antonio Meyers MD Pleural effusion (Primary Dx) 10/31/2024 Results Follow-Up Gastroenterology [address] [address] Xiomara Santoyo, LETICIA.PLASTIC FIXTURE BUILDER 10/27/2024 Orders Only Pulmonary Medicine [address] [place] [address] Vilma Graff MA Pleural effusion (Primary Dx) 10/23/2024 1:30 PM EDT - 10/23/2024 11:59 PM EDT Hospital Encounter [facility] Radiology Ultrasound [address] [facility] [place] [address] Elevated alkaline phosphatase level [R74.8] Discharge Disposition: Home 10/23/2024 Telephone Thoracic Clinic [address] [place], [place] [phone] Ronaldo Ramos MD, PhD Received Outside Medical Records 10/20/2024 Results Follow-Up Gastroenterology [address] [place] [phone] Xiomara Santoyo, 911 OPERATOR.PLASTIC FIXTURE BUILDER 10/19/2024 Get Medical Advice Pulmonary Medicine [address] [place], [place] [phone] Katerina Pascual PA-C Stan Moyer 1950 10/19/2024 [place] [address] [place], [place] [phone] Jose Antonio Meyers MD Refill Request 10/15/2024 9:20 AM EDT Office Visit Kidney [facility] [address] [address] Ar Suarez MD FLOYD (acute kidney injury) (Primary Dx); Elevated BUN; Elevated serum creatinine; Decreased GFR; Lymphocytic colitis; Pleural effusion, not elsewhere classified; Generalized edema 10/15/2024 Results Follow-Up Gastroenterology [address] [place] [phone] Xiomara Santoyo, LETICIA.PLASTIC FIXTURE BUILDER 10/15/2024 Orders Only Pulmonary Medicine [address] [place] [address] Vilma Graff MA Serositis (HCC) (Primary Dx) 10/15/2024 Orders Only Pulmonary Medicine [address] [place] [address] Vilma Graff MA 10/15/2024 Results Follow-Up Gastroenterology [address] [place] [phone] Xiomara Santoyo APRN.PLASTIC FIXTURE BUILDER 10/15/2024 Patient Outreach Kidney Medicine [facility] [address] [address] Ar Suarez MD 10/14/2024 3:00 PM EDT Office Visit Gastroenterology [address] [place] [phone] Xiomara Santoyo APRN.PLASTIC FIXTURE BUILDER Elevated BUN (Primary Dx); Elevated serum creatinine; Decreased GFR; Elevated alkaline phosphatase level 10/14/2024 1:37 PM EDT - 10/14/2024 2:06 PM EDT Hospital Encounter Admitting 2069 [place] [address] Triston Riggs MD 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] Discharge Disposition: Home 10/14/2024 1:30 PM EDT - 10/14/2024 2:30 PM EDT Surgery Admitting [address] [place] [phone] Roseann Rosario MD THORACENTESIS NEEDLE OR CATHETER ASPIRATION OF THE PLEURAL SPACE W IMAGING GUIDANCE 10/14/2024 1:00 PM EDT Office Visit Pulmonary Medicine [address] [place], [place] [phone] Triston Riggs MD Clement, Stephanie, PA-C Pleural effusion (Primary Dx) 10/13/2024 12:52 PM EDT - 10/13/2024 11:59 PM EDT Hospital Encounter Radiology [address] [place] [address] [place] [address] Cough, unspecified type [R05.9] Discharge Disposition: Home 10/13/2024 Travel 10/10/2024 Telephone Admitting [address] [place] [phone] Hui Ivey HUC Appointment 10/07/2024 Get Medical Advice Pulmonary Medicine [address] [place] [address] Katerina Pascual PA-C Stan Moyer 1950 10/02/2024 1:15 PM EDT - 10/02/2024 3:20 PM EDT Hospital Encounter Admitting [address] [place] [phone] Merlyn Zavala MD 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] Discharge Disposition: Home 10/02/2024 11:46 AM EDT - 10/02/2024 12:46 PM EDT Surgery Admitting [address] [place] [phone] Merlyn Zavala MD THORACENTESIS NEEDLE OR CATHETER ASPIRATION OF THE PLEURAL SPACE W IMAGING GUIDANCE 10/02/2024 Get Medical Advice Gastroenterology [address] [place] [phone] Sue Terrell MD Stan Moyer 1950 10/02/2024 Get Medical Advice Gastroenterology [address] [place] [phone] Sue Terrell MD Stan Moyer 1950 10/02/2024 Abstract Pulmonary Medicine [address] [place], [place] [phone] Katerina Pascual PA-C 10/02/2024 Telephone Admitting [address] [place] [phone] Hui Ivey HUC Appointment Confirmation 09/25/2024 11:21 AM EDT Anesthesia Event Gastroenterology [address] [place] [phone] Nick Shipman MD 09/25/2024 10:30 AM EDT - 09/25/2024 11:59 PM EDT Hospital Encounter Gastroenterology [address] [place] [phone] Shay Dennis MD Esophageal dysphagia [R13.19] Discharge Disposition: Home 09/23/2024 Telephone Thoracic Clinic [address] [place], [place] [phone] Ronaldo Ramos MD, PhD Received Outside Medical Records 09/21/2024 Get Medical Advice Pulmonary Medicine [address] [place], [place] [phone] Triston Riggs MD Stan Moyer 1950 Steroid Injections 09/18/2024 Patient Msg Gastroenterology [address] [place] [phone] Provider, Ccf Procedure Instructions for EGD scheduled on 09/2509/18/2024 GI Preprocedure Call Gastroenterology [address] [place] [phone] Melinda Calderón RN 09/14/2024 Telephone Pulmonary Medicine [address] [address] Amanda Brooks (Pss) Patient Update from Last 3 Months Immunizations Immunization Administration Dates Next Due COVID-19 original vaccine, a ge 12+ yr, monovalent (PFIZER-BIONTECH - PURPLE TOP) 09/13/2020,08/22/2020,08/15/2020 influenza (HD-IIV3) vaccine, [...] pure alcohol) socially, no drink since 06/2023 [facility] Utilities Answer Date Recorded In [...] place to sleep or slept in a detention (including now)? No 11/21/2023 Area Deprivation Index [...] EDT [place] [address] [facility] [place] [address] [place] [address] [facility] [place] [address] Follow-up 12/16/2024 12:30 PM EDT Office Visit Vascular Surgery [address] [place] [address] Extremity cyanosis [R23.0] 12/16/2024 3:30 PM EDT Office Visit Vascular Surgery [address] [place] [address] Extremity cyanosis [R23.0] 12/22/2024 6:00 PM EDT [facility] Gastroenterology [address] [address] Araseli Wall APRN.PLASTIC FIXTURE BUILDER [address] [place] [address] Elevated alkaline phosphatase leve 01/08/2025 1:00 PM EDT Appointment Radiology [address] [place] [address] [place] [address] XR CHEST 2V FRONTAL/LAT 01/11/2025 9:30 AM EDT Office Visit Pulmonary Medicine [address] [address] Triston Riggs MD 74[address] [place] [address] 4-6 weeks 05/21/2025 2:00 PM EST Office Visit Cardiology [address] [place] [phone] [place] [address] [facility] [place], [place] [phone] 6 month follow up Health Maintenance Due Date Last Done Comments Anxiety Screening 1969 Depression Screening 1969 Hepatitis A Vaccine (1 of 2 - Risk 2-dose series) 1970 CT Colonography 1996 Cologuard (FIT-DNA) 1996 Fecal Occult Blood 1996 Sigmoidoscopy 1996 Hepatitis B Vaccine (1 of 3 - Risk 3-dose series) 2011 Covid-19 Vaccine (2023- 5 season) 2024 05/10/2021, 09/13/2020, 08/22/2020, Additional [...] 10:15 PM EDT) No Merlyn Hartley MD Medical Devices Implanted Type Area Block Tester Device Identifier Shelf Expiration Date Model / [...] PANEL Routine 09/11/2024 1:13 PM EDT Hypokalemia CHOLESTEROL BFL Routine 05/18/2024 12:52 PM EST [...] infiltrative diseases or in the post-prandial state. Lead Blender: ALONSO Transcribe Date/Time: Nov 26 2024 7:29A Dictated by : KRISTINA SALINAS MD This examination was interpreted and the report reviewed and electronically signed by: KRISTINA SALINAS MD on Nov 26 2024 7:35AM EST Narrative 11/26/2024 7:37 AM EDT * * *Final Report* * * DATE OF EXAM: Nov 23 2024 3:05PM [facility]UDSON 1199 - US ELASTOGRAPHY LIVER / PROCEDURE [...] Trace-small right pleural effusion. Procedure Note Provider, [facility] - 11/26/2024 * * *Final Report* * * DATE OF EXAM: Nov 23 2024 3:05PM [facility] 1199 - US ELASTOGRAPHY LIVER / PROCEDURE [...] infiltrative diseases or in the post-prandial state. Lead Blender: ALONSO Transcribe Date/Time: Nov 26 2024 7:29A Dictated by : KRISTINA SALINAS MD This examination was interpreted and the report reviewed and electronically signed by: KRISTINA SALINAS MD on Nov 26 2024 7:35AM EST Jose Antonio Meyers MD US-PAMA Final Resul [...] infiltrative diseases or in the post-prandial state. Lead Blender: [employer] Transcribe Date/Time: Nov 26 2024 7:29A Dictated by : KRISTINA SALINAS MD This examination was interpreted and the report reviewed and electronically signed by: KRISTINA SALINAS MD on Nov 26 2024 7:35AM EST Narrative 11/26/2024 7:37 AM EDT * * *Final Report* * * DATE OF EXAM: Nov 23 2024 3:05PM U 1032 - US ABD RIGHT UPPER [...] Trace-small right pleural effusion. Procedure Note Provider, [facility] - 11/26/2024 * * *Final Report* * * DATE OF EXAM: Nov 23 2024 3:05PM U 1032 - US ABD RIGHT UPPER [...] infiltrative diseases or in the post-prandial state. Lead Blender: ALONSO Transcribe Date/Time: Nov 26 2024 7:29A Dictated by : KRISTINA SALINAS MD This examination was interpreted and the report reviewed and electronically signed by: KRISTINA SALINAS MD on Nov 26 2024 7:35AM EST Jose Antonio Meyers MD -[facility] Final Resul t * XR CHEST 2V FRONTAL/LAT (11/23/2024 12:33 PM EDT) Anatomical Region Laterality Modality Chest Other 11/23/2024 12:3 3 PM EDT Impressions 11/23/2024 1:44 PM EDT IMPRESSION: See result. Lead Blender: ALONSO Transcribe Date/Time: Nov 23 2024 1:39P [...] the left seventh rib. Procedure Note Provider, [facility] - 11/23/2024 * * *Final Report* * [...] left seventh rib. IMPRESSION IMPRESSION: See result. Lead Blender: PSCB Transcribe Date/Time: Nov 23 2024 1:39P [...] the prior echocardiographic exam performed on 03/26/2024 ([facility]). * * * Final * * * [facility] - 11/23/2024 11:30 AM EDT Echocardiography Report: Transthoracic Echo [place] [place] [facility] Office Date of service: 11/23/2024 9:16:58 AM WOOD DESIGNER Ordering physician: ZAC MENDIOLA Exam indication: Lower [...] MD ECHO Final Result Performing Organization Address [facility]/ZIP Co de Phone Number [facility] [address] [place] [address] * LVEF TRANSTHORACIC ECHO (11/23/2024 9:16 AM EDT) LV Ejection Fraction 52 % [facility] Comment: (2D biplane) EF > 52 An LV Ejection Fraction of > 50% is normal 11/23/2024 9:16 AM EDT Zac Mendiola MD LVEF RESULTS Final Result Performing Organization Address [facility]/ZIP Co de Phone Number [facility] [address] [place] [address] * XR CHEST 1V FRONTAL PORT (11/19/2024 5:18 PM EDT) Anatomical Region Laterality Modality Chest Radiographic Cece ging 11/19/2024 5:18 PM EDT Impressions 11/19/2024 7:04 PM EDT IMPRESSION: See result. Lead Blender: ALONSO Transcribe Date/Time: Nov 19 2024 6:59P [...] Other: . Procedure Note Provider, [facility] - 11/19/2024 * * *Final Report* * [...] aorta. Other: . IMPRESSION IMPRESSION: See result. Lead Blender: ALONSO Transcribe Date/Time: Nov 19 2024 6:59P [...] 11/19/2024 4:04 PM EDT IMPRESSION: See result Lead Blender: [facility] Transcribe Date/Time: Nov 19 2024 3:58P [...] left rib/ribs. Procedure Note Provider, [facility] - 11/19/2024 * * *Final Report* * [...] the left rib/ribs. IMPRESSION IMPRESSION: See result Lead Blender: PSCAc Transcribe Date/Time: Nov 19 2024 3:58P Dictated by : KYLER NICHOLAS MD This examination was interpreted and the report reviewed and electronically signed by: KYLER NICHOLAS MD on Nov 19 2024 4:01PM EST Katerian Pascual PA-C RAD-PAMA Final Res ult * MAGNESIUM (11/17/2024 1:53 PM EDT) Only the most recent of4 resultswithin the time period is included. Magnesium 2.3 1.7 - 2.3 mg/dL 11/18/2024 1:52 PM EDT [facility] Blood BLOOD SPECIMEN / Unknown Venipuncture / Unknown 11/17/2024 1:53 PM EDT 11/17/2024 1:53 PM EDT Jose Antonio Meyers MD LABORATORY Final Resul t Performing Organization Address City/[facility]/ZIP Co de Phone Number [facility] [address] [address], [place] * IRON AND TIBC (11/17/2024 1:53 PM EDT) Iron 72 41 - 186 ug/dL 11/18/2024 2:24 PM EDT [facility] TIBC 321 232 - 386 ug/dL 11/18/2024 2:24 PM EDT [facility] Transferrin Saturation 22.4 15.0 - 57.0 % 11/18/2024 2:24 PM EDT [facility] Blood BLOOD SPECIMEN / Unknown Venipuncture / Unknown 11/17/2024 1:53 PM EDT 11/17/2024 1:53 PM EDT Jose Antonio Meyers MD LABORATORY Final Resul t [facility] [address] [place] [address], [place] * HEPATITIS C VIRUS (HCV) RNA, QUANTITATIVE PCR, PLASMA/SERUM (11/17/2024 1:53 PM EDT) [facility] HCV RNA Not detected Not detected KRISTIE CHARLENE [address]00 11/18/2024 10:20 AM EDT [facility] Blood BLOOD SPECIMEN / Unknown Venipuncture / Unknown 11/17/2024 1:53 PM EDT 11/17/2024 1:53 PM EDT Narrative [facility] - 11/18/2024 10:20 [...] LABORATORY Final Resul t Performing Organization Address [facility]/ZIP Co de Phone Number [facility] [address] [place] [address], [place] * HEPATITIS B SURFACE ANTIGEN (11/17/2024 1:53 PM EDT) [facility] HBsAg Negative Negative 11/18/2024 11:16 AM EDT [facility] Blood BLOOD SPECIMEN / Unknown Venipuncture / Unknown 11/17/2024 1:53 PM EDT 11/17/2024 1:53 PM EDT Jose Antonio Meyers MD LABORATORY Final Resul t Performing Organization Address City/[facility]/ZIP Co de Phone Number [facility] [address] [place] [address], [place] * HEPATITIS B CORE ANTIBODY IGM (11/17/2024 1:53 PM EDT) [facility] Hep B Core Ab, IgM Negative Negative 11/18/2024 11:14 AM EDT [facility] Comment:No evidence of recen t infection with Hepatitis B virus. Should recent infection be suspected, repeat testing may be considered 3-4 weeks after this draw. Blood BLOOD SPECIMEN / Unknown Venipuncture / Unknown 11/17/2024 1:53 PM EDT 11/17/2024 1:53 PM EDT Jose Antonio Meyers MD LABORATORY Final Resul t Performing Organization Address [facility] de Phone Number [facility] [address] [place] [address], [place] * HEPATITIS A ANTIBODY IGM (11/17/2024 1:53 PM EDT) Hep A Ab, IgM Negative Negative 11/18/2024 11:20 AM EDT [facility] Comment:No evidence of recen t infection with Hepatitis A virus. Blood BLOOD SPECIMEN / Unknown Venipuncture / Unknown 11/17/2024 1:53 PM EDT 11/17/2024 1:53 PM EDT Jose Antonio Meyers MD LABORATORY Final Resul t Performing Organization Address [facility] de Phone Number [facility] [address] [place] [address], [place] * (ABNORMAL) COPPER BLOOD (11/17/2024 1:53 PM EDT) Copper 159(H) 70 - 140 ug/dL 11/18/2024 11:03 AM EDT [facility] Comment:This test was develo ped, and its performance characteristics determined by the [facility] Department of Pathology and Laboratory Medicine. It has not been cleared or approved by the FDA. The [facility] Department of Pathology and Laboratory Medicine is regulated under CLIA as qualified to perform high- complexity testing. This test is used for clinical purposes. It should not be regarded as investigational or for research. Blood BLOOD SPECIMEN / Unknown Venipuncture / Unknown 11/17/2024 1:53 PM EDT 11/17/2024 1:53 PM EDT us Jose Antonio Meyers MD LABORATORY Final Resul t [facility] [address] [facility] [address] [place] [address], [place] * (ABNORMAL) COMPREHENSIVE METABOLIC PANEL (11/17/2024 1:53 PM EDT) Only the most recent of4 resultswithin the time period is included. Pathologist [facility] Protein, Total 7.3 6.3 - 8.0 g/dL 11/18/2024 1:52 PM EDT [facility] Albumin 4.1 3.9 - 4.9 g/dL 11/18/2024 1:52 PM EDT [facility] Calcium, Total 9.5 8.5 - 10.2 mg/dL 11/18/2024 1:52 PM EDT [facility] Bilirubin, Total 0.8 0.2 - 1.3 mg/dL 11/18/2024 1:52 PM EDT [facility] Alkaline Phosphatase 112 38 - 113 U/L 11/18/2024 1:52 PM EDT [facility] AST 47(H) 14 - 40 U/L 11/18/2024 1:52 PM EDT [facility] ALT 34 10 - 54 U/L 11/18/2024 1:52 PM EDT [facility] Glucose 104(H) 74 - 99 mg/dL 11/18/2024 1:52 PM EDT [facility] Comment: The [place] [employer] Association (ADA) provides guidance for cutoff [...] Standards of Medical Care in Diabetes 2016, [place] [employer]. Diabetes Care. 2016.39(Suppl 1). BUN 55(H) 9 - 24 mg/dL 11/18/2024 1:52 PM EDT [facility] Creatinine 1.38(H) 0.73 - 1.22 mg/dL 11/18/2024 1:52 PM EDT [facility] Sodium 139 136 - 144 mmol/L 11/18/2024 1:52 PM EDT [facility] Potassium 3.8 3.7 - 5.1 mmol/L 11/18/2024 1:52 PM EDT [facility] Chloride 97(L) 98 - 107 mmol/L 11/18/2024 1:52 PM EDT [facility] CO2 30 22 - 30 mmol/L 11/18/2024 1:52 PM EDT [facility] Anion Gap 12 8 - 15 mmol/L 11/18/2024 1:52 PM EDT [facility] Estimated Glomerular Filtration Rate 54(L) >=60 mL/min/1. 73m 11/18/2024 1:52 PM EDT [facility] Comment:Estimated Glomerular Filtration [...] Antonio Meyers MD LABORATORY Final Resul t [facility] [address] [address], * HEPATITIS C ANTIBODY IA WITH CONFIRMATION (11/17/2024 1:53 PM EDT) Hep C Antibody IA Negative Negative 11/18/2024 11:05 AM EDT [facility] Comment:The result suggests no evidence of infection with Hepatitis C virus. Should recent infection be suspected, repeat testing may be considered 4-6 weeks after this draw. Blood BLOOD SPECIMEN / Unknown Venipuncture / Unknown 11/17/2024 1:53 PM EDT 11/17/2024 1:53 PM EDT Jose Antonio Meyers MD LABORATORY Final Resul t Performing Organization Address City[facility] Co de Phone Number [facility] [address] [facility] [place] [id number], [place] * (ABNORMAL) HIGH SENSITIVITY TROPONIN T (THIRD) 3 HRS AFTER INITIAL (11/12/2024 5:13 PM EDT) [facility] HELIO High Sensitivity 16(H) <12 ng/L 11/12/2024 5:40 PM EDT [facility] Blood BLOOD SPECIMEN / Unknown Venipuncture / Unknown 11/12/2024 5:13 PM EDT 11/12/2024 5:17 PM EDT Juliano Garcia MD LABORATORY Final Result Performing Organization Address [facility] Co de Phone Number [facility] [address] [place], [place] [id number], [place] * US DVT LOWER BILATERAL (11/12/2024 [...] of the left and right lower extremities. Lead Blender: ALONSO Transcribe Date/Time: Nov 12 2024 4:27P Dictated by : TAJ CINTRON MD This examination was interpreted and the report reviewed and electronically signed by: CHANTEL HEIN MD on Nov 12 2024 4:30PM EST Narrative 11/12/2024 4:33 PM EDT * * *Final Report* * * DATE OF EXAM: Nov 12 2024 4:18PM NDU 1005 - US DVT LOWER ROCIO / [...] otherwise assessed. Procedure Note Provider, [facility] - 11/12/2024 * * *Final Report* * * DATE OF EXAM: Nov 12 2024 4:18PM [facility] 1005 - US DVT LOWER ROCIO / [...] of the left and right lower extremities. Lead Blender: PSCB Transcribe Date/Time: Nov 12 2024 4:27P Dictated by : TAJ CINTRON MD This examination was interpreted and the report reviewed and electronically signed by: CHANTEL HEIN MD on Nov 12 2024 4:30PM EST us Khurram Magallanes MD US-PAMA Final Result * (ABNORMAL) HIGH SENSITIVITY TROPONIN T (SECOND) (11/12/2024 3:11 PM EDT) HELIO High Sensitivity 17(H) <12 ng/L 11/12/2024 3:45 PM EDT [facility] Blood BLOOD SPECIMEN / Unknown Venipuncture / Unknown 11/12/2024 3:11 PM EDT 11/12/2024 3:15 PM EDT Juliano Garcia MD LABORATORY Final Result [facility] [address] [facility] [address] [address], [place] * XR CHEST 2V FRONTAL/LAT (11/12/2024 1:49 PM EDT) Anatomical Region Laterality Modality Chest Radiographic Cece ging 11/12/2024 1:49 PM EDT Impressions 11/12/2024 1:55 PM EDT IMPRESSION: Similar appearance of small right loculated pleural effusion compared to prior. No new radiographic abnormalities. Lead Blender: [facility] Transcribe Date/Time: Nov 12 2024 1:50P [...] the spine. Procedure Note Provider, [facility] [place] - 11/12/2024 * * *Final Report* * [...] compared to prior. No new radiographic abnormalities. Lead Blender: PSCB Transcribe Date/Time: Nov 12 2024 1:50P Dictated by : OCTAVIO WOODARD MD This examination was interpreted and the report reviewed and electronically signed by: MERLYN EASTON MD on Nov 12 2024 1:53PM EST us Juliano Garcia MD RAD-PAMA Final Result * (ABNORMAL) HIGH SENSITIVITY TROPONIN T (INITIAL) (11/12/2024 1:30 PM EDT) HELIO High Sensitivity 18(H) <12 ng/L 11/12/2024 2:04 PM EDT [facility] Blood BLOOD SPECIMEN / Unknown Venipuncture / Unknown 11/12/2024 1:30 PM EDT 11/12/2024 1:34 PM EDT us Juliano Garcia MD LABORATORY Final Result Performing Organization Address [facility]/ZIP Co de Phone Number [facility] [address] [address], [place] * (ABNORMAL) NT PRO BNP (11/12/2024 1:30 PM EDT) [facility] NT Pro BNP 465(H) <125 pg/mL 11/12/2024 2:04 PM EDT [facility] Blood BLOOD SPECIMEN / Unknown Venipuncture / Unknown 11/12/2024 1:30 PM EDT 11/12/2024 1:34 PM EDT us Juliano Garcia MD LABORATORY Final Result Performing Organization Address [facility] Phone Number [facility] [address] [place] [id number], [place] * (ABNORMAL) COMPLETE BLOOD COUNT AND DIFFERENTIAL (11/12/2024 1:30 PM EDT) Only the most recent of2 resultswithin the time period is included. [facility] WBC 8.79 3.70 - 11.00 k/uL 11/12/2024 1:39 PM EDT [facility] RBC 3.82(L) 4.20 - 6.00 m/uL 11/12/2024 1:39 PM EDT [facility] Hemoglobin 12.3(L) 13.0 - 17.0 g/dL 11/12/2024 1:39 PM EDT [facility] Hematocrit 37.1(L) 39.0 - 51.0 % 11/12/2024 1:39 PM EDT [facility] MCV 97.1 80.0 - 100.0 fL 11/12/2024 1:39 PM EDT [facility] MCH 32.2 26.0 - 34.0 pg 11/12/2024 1:39 PM EDT [facility] MCHC 33.2 30.5 - 36.0 g/dL 11/12/2024 1:39 PM EDT [facility] RDW-CV 16.6(H) 11.5 - 15.0 % 11/12/2024 1:39 PM EDT [facility] Platelet Count 189 150 - 400 k/uL 11/12/2024 1:39 PM EDT [facility] MPV 10.0 9.0 - 12.7 fL 11/12/2024 1:39 PM EDT [facility] Neutrophils % 80.0 % 11/12/2024 1:39 PM EDT [facility] Abs Neut 7.03 1.45 - 7.50 k/uL 11/12/2024 1:39 PM EDT [facility] Lymphocytes % 10.4 % 11/12/2024 1:39 PM EDT [facility] Abs Lymph 0.91(L) 1.00 - 4.00 k/uL 11/12/2024 1:39 PM EDT [facility] Monocytes % 7.6 % 11/12/2024 1:39 PM EDT [facility] Abs Clark 0.67 <0.87 k/uL 11/12/2024 1:39 PM EDT [facility] Eosinophils % 0.0 % 11/12/2024 1:39 PM EDT [facility] Abs Eosin <0.03 <0.46 k/uL 11/12/2024 1:39 PM EDT [facility] Basophils % 0.2 % 11/12/2024 1:39 PM EDT [facility] Abs Baso <0.03 <0.11 k/uL 11/12/2024 1:39 PM EDT [facility] Immature Granulocytes % 1.8 % 11/12/2024 1:39 PM EDT [facility] Abs Immature Gran 0.16(H) <0.10 k/uL 025 1:39 PM EDT [facility] NRBC 0.0 /100 WBC 11/12/2024 1:39 PM EDT [facility] Absolute nRBC <0.01 <0.01 k/uL 11/12/2024 1:39 PM EDT [facility] Diff Type Auto 11/12/2024 1:39 PM EDT [facility] Blood BLOOD SPECIMEN / Unknown Venipuncture / Unknown 11/12/2024 1:30 PM EDT 11/12/2024 1:34 PM EDT Juliano Garcia MD LABORATORY Final Result [facility] [address] [facility] Desk [address] [place] [address], * ECG COMPLETE (11/12/2024 1:24 PM EDT) Ventricular Rate 88 BPM [facility] Atrial Rate 88 BPM [facility] P-R Interval 176 ms [facility] QRS Duration 80 ms [facility] QT Interval 354 ms [facility] QTC Calculation (Bazett) 428 ms [facility] Calculated P [place] 8 degrees [facility] Calculated R [place] 3 degrees [facility] Calculated T [place] 246 degrees [facility] 11/12/2024 1:24 PM EDT Impressions [facility] - 11/22/2024 12:19 PM EDT SINUS RHYTHM WITH OCCASIONAL PREMATURE VENTRICULAR COMPLEXES NONSPECIFIC T WAVE ABNORMALITY ABNORMAL ECG Confirmed by JULIANO GARCIA ([id number]), rewrite editor ANA PORTILLO ([id number]) on 11/22/2024 12:18:59 PM Narrative [facility] - 11/22/2024 12:19 PM EDT NAME : BRYAN HARRIS PID : [id number] : 1950 Gender : Male Race : ORD : [id number] Procedure Date : Nov 12 2024 13:24:15 Edit Date : Nov 22 2024 12:19:03 Diagnosis: SINUS RHYTHM WITH OCCASIONAL PREMATURE VENTRICULAR COMPLEXES NONSPECIFIC T WAVE ABNORMALITY ABNORMAL ECG Confirmed by JULIANO GARCIA ([id number]), rewrite editor ANA PORTILLO ([id number]) on 11/22/2024 12:18:59 PM Test Reason : Chest Pain Location : 2 : EDNS 003 Overread By : JULIANO GARCIA Edited By : ANA PORTILLO Referred By : , Acquired by : , us Juliano Garcia MD EKG Final Result [facility] [address] [place] [address] * (ABNORMAL) COMPLETE BLOOD COUNT (11/05/2024 11:42 AM EDT) Only the most recent of3 resultswithin the time period is included. WBC 8.65 3.70 - 11.00 k/uL 11/05/2024 11:44 AM EDT [facility] RBC 3.89(L) 4.20 - 6.00 m/uL 11/05/2024 11:44 AM EDT [facility] Hemoglobin 12.4(L) 13.0 - 17.0 g/dL 11/05/2024 11:44 AM EDT [facility] Hematocrit 38.3(L) 39.0 - 51.0 % 11/05/2024 11:44 AM EDT [facility] MCV 98.5 80.0 - 100.0 fL 11/05/2024 11:44 AM EDT [facility] MCH 31.9 26.0 - 34.0 pg 11/05/2024 11:44 AM EDT [facility] MCHC 32.4 30.5 - 36.0 g/dL 11/05/2024 11:44 AM EDT [facility] RDW-CV 16.2(H) 11.5 - 15.0 % 11/05/2024 11:44 AM EDT [facility] Platelet Count 150 150 - 400 k/uL 11/05/2024 11:44 AM EDT [facility] MPV 9.8 9.0 - 12.7 fL 11/05/2024 11:44 AM EDT [facility] Absolute nRBC <0.01 <0.01 k/uL 11/05/2024 11:44 AM EDT [facility] Blood BLOOD SPECIMEN / Unknown Venipuncture / Unknown 11/05/2024 11:42 AM EDT 11/05/2024 11:42 AM EDT us Jose Antonio Meyers MD LABORATORY Final Resul t [facility] [address] [place] [address] * (ABNORMAL) BASIC METABOLIC PANEL (11/05/2024 11:42 AM EDT) Only the most recent of2 resultswithin the time period is included. Glucose 140(H) 74 - 99 mg/dL 11/05/2024 12:19 PM EDT [facility] Comment: The [place] Diabetes Association (ADA) provides guidance for cutoff [...] Standards of Medical Care in Diabetes 2016, [place] Diabetes Association. Diabetes Care. 2016.39(Suppl 1). BUN 39(H) 9 - 24 mg/dL 11/05/2024 12:19 PM EDT [facility] Creatinine 1.08 0.73 - 1.22 mg/dL 11/05/2024 12:19 PM EDT [facility] Sodium 138 136 - 144 mmol/L 11/05/2024 12:19 PM EDT [facility] Potassium 4.0 3.7 - 5.1 mmol/L 11/05/2024 12:19 PM EDT [facility] Chloride 100 98 - 107 mmol/L 11/05/2024 12:19 PM EDT [facility] CO2 25 22 - 30 mmol/L 11/05/2024 12:19 PM EDT [facility] Anion Gap 13 8 - 15 mmol/L 11/05/2024 12:19 PM EDT [facility] Calcium, Total 9.0 8.5 - 10.2 mg/dL 11/05/2024 12:19 PM EDT [facility] Estimated Glomerular Filtration Rate 72 >=60 mL/min/1. 73m 11/05/2024 12:19 PM EDT [facility] Comment:Estimated Glomerular Filtration Rate (eGFR) [...] Antonio Meyers MD LABORATORY Final Resul t [facility] [address] [place] [address] * CT ENTEROGRAPHY W IVCON (11/04/2024 3:04 PM EDT) Anatomical Region Laterality Modality Abdomen Computed Tomogra phy 11/04/2024 3:04 PM EDT Impressions 11/04/2024 5:16 PM EDT IMPRESSION: NO ACTIVE INFLAMMATORY SMALL BOWEL CROHN'S DISEASE. SUSPECTED CHRONIC LIVER DISEASE WITH SMALL VOLUME ASCITES. SMALL RIGHT PLEURAL EFFUSION WITH RIGHT PLEURAL CATHETER. SMALL HIATAL HERNIA. Lead Blender: ALONSO Transcribe Date/Time: Nov 04 2024 3:57P Dictated by : IZABELA LAMBERT MD This examination was interpreted and the report reviewed and electronically signed by: IZABELA LAMBERT MD on Nov 04 2024 5:14PM EST Narrative 11/04/2024 5:16 PM EDT * * *Final Report* * * DATE OF EXAM: Nov 04 2024 3:04PM [id number] - CT ENTEROGRAPHY W IVCON / PROCEDURE [...] additional findings. Procedure Note Provider, [facility] [place] - 11/04/2024 * * *Final Report* * * DATE OF EXAM: Nov 04 2024 3:04PM [facility]45 - CT ENTEROGRAPHY W IVCON [...] WITH RIGHT PLEURAL CATHETER. SMALL HIATAL HERNIA. Lead Blender: PSCB Transcribe Date/Time: Nov 04 2024 3:57P Dictated by : IZABELA LAMBERT MD This examination was interpreted and the report reviewed and electronically signed by: IZABELA LAMBERT MD on Nov 04 2024 5:14PM EST us Xiomara Santoyo APRN.PLASTIC FIXTURE BUILDER CT-PAMA Final Re sult * FAT, FECAL QUAL (10/28/2024 11:00 AM EDT) Fat, Fecal - Neutral Normal Normal 10/31/2024 12:57 AM EDT [facility] Fat, Fecal - Split Normal Normal 10/31/2024 12:57 AM EDT COUNT INCLUDES THE [facility] Comment: INTERPRETIVE INFORMATION: Fecal Fat Qualitative Neutral fats include the monoglycerides, diglycerides, and triglycerides while split fats are the free fatty acids that are liberated from them. Impaired synthesis or secretion of pancreatic enzymes or bile may cause an increase in neutral fats while an increase in split fats suggests impaired absorption of nutrients. Performed By: [facility] [employer] [address] [place] [address] Lock Corner Machine Operator: Arley Correa MD, PhD CLIA Number: [id number] Stool STOOL SPECIMEN / Unknown Non Blood / Unknown 10/28/2024 11:00 AM EDT 10/28/2024 12:40 PM EDT us Xiomara Santoyo 911 OPERATOR.[facility] Final Re sult COUNT INCLUDES THE [facility] [address] [place] [address] * US ABD SPLEEN - NB (10/23/2024 2:18 PM EDT) Anatomical Region Laterality Modality Ultrasound 10/23/2024 2:18 PM EDT Impressions 10/26/2024 2:36 PM EDT IMPRESSION: 1. Mild nodularity of the liver surface, which may be seen with cirrhosis. No focal hepatic lesions. 2. Small volume abdominal ascites. No splenomegaly. Lead Blender: ALONSO Transcribe Date/Time: Oct 26 2024 2:30P Dictated by : SANDRA BELTRE MD This examination was interpreted and the report reviewed and electronically signed by: SANDRA BELTRE MD on Oct 26 2024 2:34PM EST Narrative 10/26/2024 2:36 PM EDT * * *Final Report* * * DATE OF EXAM: Oct 23 2024 2:18PM U 1232 - US ABD SPLEEN -NB / [...] splenic lesions. Procedure Note Provider, [facility] [place] - 10/26/2024 * * *Final Report* * * DATE OF EXAM: Oct 23 2024 2:18PM [facility] 1232 - US ABD SPLEEN -NB / [...] 2. Small volume abdominal ascites. No splenomegaly. Lead Blender: ALONSO Transcribe Date/Time: Oct 26 2024 2:30P Dictated by : SANDRA BELTRE MD This examination was interpreted and the report reviewed and electronically signed by: SANDRA BELTRE MD on Oct 26 2024 2:34PM EST us Xiomara Santoyo APRN.PLASTIC FIXTURE BUILDER US-PAMA Final Re sult * US ABD RIGHT UPPER QUADRANT (10/23/2024 2:18 PM EDT) Anatomical Region Laterality Modality Abdomen Ultrasound 10/23/2024 2:18 PM EDT Impressions 10/26/2024 2:36 PM EDT IMPRESSION: 1. Mild nodularity of the liver surface, which may be seen with cirrhosis. No focal hepatic lesions. 2. Small volume abdominal ascites. No splenomegaly. Lead Blender: PSCB Transcribe Date/Time: Oct 26 2024 2:30P Dictated by : SANDRA BLETRE MD This examination was interpreted and the [...] splenic lesions. Procedure Note Provider, [facility] [place] - 10/26/2024 * * *Final Report* * [...] 2. Small volume abdominal ascites. No splenomegaly. Lead Blender: ALONSO Transcribe Date/Time: Oct 26 2024 2:30P Dictated by : SANDRA BELTRE MD This examination was interpreted and the report reviewed and electronically signed by: SANDRA BELTRE MD on Oct 26 2024 2:34PM EST Xiomara Santoyo 911 OPERATOR.PLASTIC FIXTURE BUILDER US-PAMA Final Re sult * IGG SUBCLASS 1,2,3,4 (10/23/2024 1:18 PM EDT) IgG Subclass 1 576.5 382.4 - 928.6 mg/dL 10/26/2024 3:36 PM EDT [facility] IgG Subclass 2 251.2 241.8 - 700.3 mg/dL 10/26/2024 3:36 PM EDT [facility] IgG Subclass 3 50.4 21.8 - 176.1 mg/dL 10/26/2024 3:36 PM EDT [facility] IgG Subclass 4 64.4 3.9 - 86.4 mg/dL 10/26/2024 3:36 PM EDT [facility] Blood BLOOD SPECIMEN / Unknown Venipuncture / Unknown 10/23/2024 1:18 PM EDT 10/23/2024 1:19 PM EDT Ar Suarez MD LABORATORY Final Resu lt Performing Organization Address City/[facility]/ZIP Co de Phone Number [facility] [address] [address], [place] * LIPASE (10/23/2024 1:18 PM EDT) Lipase 55 16 - 61 U/L 10/23/2024 2:05 PM EDT [facility] Blood BLOOD SPECIMEN / Unknown Venipuncture / Unknown 10/23/2024 1:18 PM EDT 10/23/2024 1:19 PM EDT Ar Suarez MD LABORATORY Final Resu lt Performing Organization Address [facility] Co de Phone Number [facility] [address] [facility] [place] [address], [place] * IMMUNOGLOBULIN G (10/23/2024 1:18 PM EDT) IgG 1,100 700 - 1,600 mg/dL 10/23/2024 7:51 PM EDT [facility] Blood BLOOD SPECIMEN / Unknown Venipuncture / Unknown 10/23/2024 1:18 PM EDT 10/23/2024 1:19 PM EDT Ar Suarez MD LABORATORY Final Resu lt Performing Organization Address [facility]/ZIP Co de Phone Number [facility] [address] [address], [place] * AMYLASE (10/23/2024 1:18 PM EDT) Amylase 70 30 - 104 U/L 10/23/2024 2:05 PM EDT [facility] Blood BLOOD SPECIMEN / Unknown Venipuncture / Unknown 10/23/2024 1:18 PM EDT 10/23/2024 1:19 PM EDT Ar Suarez MD LABORATORY Final Resu lt [facility] [address] [facility] [place] [address], [place] * (ABNORMAL) ALKALINE PHOSPHATASE ISOENZYMES (P) (10/15/2024 10:25 AM EDT) Alk Phos Bone % 18.1 10.7 - 68.3 % 10/16/2024 9:58 PM EDT [facility] Bone Fraction 22.6 12.9 - 52.6 U/L 10/16/2024 9:58 PM EDT [facility] Alk Phos Liver % 81.9 26.0 - 86.2 % 10/16/2024 9:58 PM EDT [facility] Liver Fraction 102.4(H) 16.0 - 69.3 U/L 10/16/2024 9:58 PM EDT [facility] Alk Phos Intestine % 0.0 0.0 - 24.2 % 10/16/2024 9:58 PM EDT [facility] Intestine Fraction 0.0 0.0 - 16.3 U/L 10/16/2024 9:58 PM EDT [facility] Blood BLOOD SPECIMEN / Unknown Venipuncture / Unknown 10/15/2024 10:25 AM EDT 10/15/2024 10:26 AM EDT Xiomara Santoyo 911 OPERATOR.[employer] BU[employer] LABORATORY Final Re sult [facility] [address] [address], [place] * (ABNORMAL) SEDIMENTATION RATE, WESTERGREN (10/15/2024 10:25 AM EDT) Sed Rate, Westergren 34(H) 0 - 15 mm/hr 10/15/2024 2:45 PM EDT [facility] Blood BLOOD SPECIMEN / Unknown Venipuncture / Unknown 10/15/2024 10:25 AM EDT 10/15/2024 10:26 AM EDT Ar Suarez MD LABORATORY Final Resu lt [facility] [address] [place] [address], [place] * (ABNORMAL) ALKALINE PHOSPHATASE (10/15/2024 10:25 AM EDT) Alkaline Phosphatase 125(H) 38 - 113 U/L 10/15/2024 7:51 PM EDT [facility] Blood BLOOD SPECIMEN / Unknown Venipuncture / Unknown 10/15/2024 10:25 AM EDT 10/15/2024 10:26 AM EDT us Xiomara Santoyo APRN.PLASTIC FIXTURE BUILDER LABORATORY Final Re sult Performing Organization Address [facility] Co de Phone Number [facility] [address] [place] [address], [place] * (ABNORMAL) HIGH SENSITIVITY C-REACTIVE PROTEIN (10/15/2024 10:25 AM EDT) UltraSens C-Reactive Protein 13.2(H) <3.1 mg/L 10/15/2024 7:51 PM EDT [facility] Comment: hsCRP < [...] for Disease Control and Prevention and the [place] [employer]. Circulation 2003;107:499-511. Blood BLOOD SPECIMEN / Unknown Venipuncture / Unknown 10/15/2024 10:25 AM EDT 10/15/2024 10:26 AM EDT Ar Suarez MD LABORATORY Final Resu lt Performing Organization Address City/[facility]/ZIP Co de Phone Number [facility] [address] [place] [id number], [place] * (ABNORMAL) PROTEIN / CREATININE RATIO (10/15/2024 10:09 AM EDT) Protein, Urine Random <4 0 - 20 mg/dL 10/15/2024 10:10 PM EDT [facility] Creatinine, Ur Random (UCRR) 12.6(L) 20.0 - 300.0 mg/dL 10/15/2024 10:10 PM EDT [facility] Protein/Creat Ratio <0.32(H) <0.15 mg/mg 10/15/2024 10:10 PM EDT [facility] Comment: Adult Proteinuria [...] Ar Suarez MD LABORATORY Final Resu lt [facility] [address] [facility] [address] [place] [address], [place] * UA DIP, URINE (POC) (10/15/2024 9:38 AM EDT) GLUCOSE UA (POCT) Negative Negative mg/dL [facility] BILIRUBIN UA (POCT) Negative Negative [facility] KETONE UA (POCT) Negative Negative mg/dL [facility] SPECIFIC GRAVITY UA (POCT) 1.015 1.005 - 1.030 [facility] HEMOGLOBIN/BLOOD UA (POCT) Negative Negative [facility] PH UA (POCT) 7.0 4.5 - 8.[address] [facility] PROTEIN UA (POCT) Negative Negative mg/dL [facility] UROBILINOGEN UA (POCT) 0.2 Normal E.U./dL [facility] NITRITE UA (POCT) Negative Negative [facility] LEUKOCYTES UA (POCT) Negative Negative [facility] COLOR UA (POCT) Light yellow C [facility] CLARITY UA (POCT) Clear [facility] 10/15/2024 9:38 AM EDT Narrative [facility] POINT OF CARE - 10/15/2024 9:38 AM EDT Location:[facility], [address] [place] [address], [address] us Ar Suarez MD POC TESTING Final Resu lt Performing Organization Address [facility] Co de Phone Number [facility] POINT [facility] CARE [address] * (ABNORMAL) GGT (10/14/2024 3:53 PM EDT) GGT 136(H) 10 - 70 U/L 10/15/2024 3:16 AM EDT [facility] Blood BLOOD SPECIMEN / Unknown Venipuncture / Unknown 10/14/2024 3:53 PM EDT 10/14/2024 3:53 PM EDT us Xiomara Santoyo APRN.PLASTIC FIXTURE BUILDER LABORATORY Final Re sult Performing Organization Address [facility] Co de Phone Number [facility] [address] [place] [address] [place] [address], [place] * PROTEIN, BODY FLUID (10/14/2024 1:53 PM EDT) Protein, Body Fluid 2.5 See Comment g/dL 10/14/2024 4:24 PM EDT [facility] Comment: Serous fluids: [...] document C49A. RAJEEV Bui: Clinical Laboratory Standards [place]: 2007. Fluid, Thoracentesis PLEURAL FLUID / Unknown 10/14/2024 1:53 PM EDT 10/14/2024 2:25 PM EDT us Roseann Rosario MD LABORATORY Final Result [facility] [address] [facility] [address] [place] [address], [place] * LACTATE DEHYDROGENASE, BODY FLUID (10/14/2024 1:53 PM EDT) LD,Body Fluid 110 See Comment U/L 10/14/2024 4:24 PM EDT [facility] Comment: Pleural fluids: [...] document C49A. RAJEEV Bui: Clinical Laboratory Standards [place]: 2007. Reference: 2. Rafael STARK, Fei Doyle. Body fluid analysis: clinical utility and applicability of published studies to guide interpretation of today's laboratory testing in serous fluids. Crit Rev Clin Lab Sci, 2013:50(4,5):107 to 124. Reference: 3. Flaca Najera, [place] Randolph DR. Lactate dehydrogenase activity and its isoenzymes in serum and synovial fluid of patients with rheumatoid arthritis and osteoarthritis. J Rheumatol. 1992:19:529 to 533. Fluid, Thoracentesis PLEURAL FLUID / Unknown 10/14/2024 1:53 PM EDT 10/14/2024 2:25 PM EDT us Roseann Rosario MD LABORATORY Final Result [facility] [address] [facility] [address] [place] [address], [place] * US CHEST (POC) H23 USE [...] any questions regarding this interpretation, please call [phone]. If you are unable to reach us at the number above, please feel free to contact [facility] eRadiology at [phone]. Narrative 10/13/2024 3:26 PM EDT * * [...] tissues: Unremarkable. Procedure Note Provider, [facility] [place] - 10/13/2024 * * *Final Report* * [...] any questions regarding this interpretation, please call [phone]. If you are unable to reach us at the number above, please feel free to [facility] at [phone]. us Louise Douglas MD RAD-PAMA Final Result * PT ED PATIENT INFORMATION (10/08/2024) 10/08/2024 Narrative KATHY - 11/23/2024 Provider MALACHI your patient BRYAN HARRIS has not started their Kathy program, time has . Kathy program: PATIENT SAFETY INSTRUCTIONS FOR HEALTHCARE SETTINGS us Xiomara Santoyo 911 OPERATOR.PLASTIC FIXTURE BUILDER KATHY Final Re sult [facility]ATH[facility] * US CHEST (POC) H23 USE ONLY (10/02/2024 12:23 PM EDT) Anatomical Region Laterality Modality Other 10/02/2024 12:2 3 PM EDT us Merlyn Zavala MD IMAGES Final Resu lt * SURGICAL PATHOLOGY (09/25/2024 11:32 AM EDT) Case Report Surgical Pathology Report Case: [id number] Authorizing Provider: Shay Dennis MD Collected: 09/25/2024 11:32 AM Ordering Location: Gastroenterology Received: 09/25/2024 04:32 PM Pathologist: Simba Frias MD, PhD Specimen: Stomach, Biopsy, R/O: H. Pylori 10/01/2024 5:25 PM EDT [facility] FINAL DIAGNOSIS A. Stomach, biopsy: - Chronic focally active gastritis and reactive gastropathy in antral and oxyntic mucosa. - Negative for intestinal metaplasia or dysplasia. - H. pylori immunostain will be reported as an addendum. 10/01/2024 5:25 PM EDT [facility] at 1344 EDT Gross Description A. Stomach, Biopsy Received in formalin are multiple pieces of de la garza, soft tissue aggregating to 1.9 x 0.3 x 0.2 cm. Totally submitted in one cassette. Gross examination performed at [facility], [address] [place] [address] September 25, 2024 6:03 PM 10/01/2024 5:25 PM EDT [facility] Performing Lab Diagnostic interpretation performed at: [facility], [address] [place] [address], [place] [address] CLIA# [id number] Lock Corner Machine Operator: Ramos Strickland MD 10/01/2024 5:25 PM EDT [facility] Addendum Addendum is issued t o reflect the result of immunohistochemical stain: - Immunostain for H. pylori is negative in part A. 10/01/2024 5:25 PM EDT [facility] Addendum electronically signed by Simba Frias MD, PhD on 10/01/2024 at 1725 EDT Disclaimer Laboratory Developed Test (LDT) Disclaimer: Performance characteristics of immunohistochemical, immunofluorescent, and chromogenic in-situ hybridization tests have been determined by the performing laboratory within [facility]'s [facility] Pathology and Laboratory Medicine Department ([facility], [facility], [facility], [facility], [facility], [facility], or [facility]) in a manner consistent with CLIA requirements. One or more of these tests may not have been cleared or approved by the FDA. [facility] is regulated under CLIA as qualified to perform high-complexity testing. These tests are used for clinical purposes. These should not be regarded as investigational or for research. Positive and negative controls stain appropriately. 10/01/2024 5:25 PM EDT [facility] Tissue BIOPSY OF STOMACH / Unknown 09/25/2024 11:32 AM EDT 09/25/2024 4:32 PM EDT us Shay Dennis MD SURGICAL PATHOLOGY Edited Resul t - Final [facility] [address] [place] [address], * EGD DIAGNOSTIC (09/25/2024 11:14 AM EDT) Anatomical Region Laterality Modality Other 09/25/2024 11:1 4 AM EDT Narrative 09/25/2024 11:52 AM EDT Q3 Patient Name: Bryan Harris Procedure Date: 09/25/2024 11:14 AM Date of : 1950 Admit Type: Outpatient Age: 74 Gender: Male Note Status: Finalized Attending MD: Shay Dennis , , [id number] Procedure: Upper GI endoscopy Indications: Dysphagia Providers: [...] by the physician, the nurse and the vacuum drier operator in the pre-procedure area in the endoscopy [...] the patient. Procedure Code(s): --- Professional --- 02806 Diagnosis Code(s): --- Professional --- K22.4 K44.9 K31.7 R13.10 CPT copyright 2020 [employer]. All rights reserved. Attending Participation: I personally performed the entire procedure. Scope In: 11:28:01 AM Scope Out: 11:38:[address] Shay Dennis, 09/25/2024 11:50:45 AM This report has been signed electronically by Shay Dennis Number of Addenda: 0 Note Initiated On: 09/25/2024 11:14 AM us Sue Terrell MD DIGESTIVE DISEASE Final Result * CHOLESTEROL BFL (05/18/2024 12:52 PM EST) Cholesterol, Body Fluid 30 See Comment mg/dL 05/19/2024 3:06 AM EST [facility] Comment: SYNOVIAL FLUIDS: [...] document C49-A. RAJEEV Bui: Clinical Laboratory Standards [place]; 2007. Body Fluid Type (Chol) Pleural Cavity, Right 05/19/2024 3:06 AM EST [facility] Sterile Fluid/Body Fluid PLEURAL FLUID / Unknown Non Blood / Unknown 05/18/2024 12:52 PM EST 05/18/2024 11:34 PM EST us Louise Douglas MD LABORATORY Final Result [facility] [address] [place] [address], * COLONOSCOPY (THERAPEUTIC) (04/28/2024 11:16 AM EST) Anatomical Region Laterality Modality Other 04/28/2024 11:1 6 AM EST Narrative 04/28/2024 11:59 AM EST [facility] Gastrointestinal Endoscopy Patient Name: Bryan Harris Procedure Date: 04/28/2024 11:16 AM Date of : 1950 Admit Type: Outpatient Age: 74 Room: [place] [address] Gender: Male Note Status: Finalized Attending MD: Vic Ponce MD, [id number] Procedure: Colonoscopy Indications: Chronic diarrhea Comorbidities Patient [...] physician, the nurse, the anesthesiologist and the vacuum drier operator in the procedure room at 11:29 AM. [...] prior dose. Procedure Code(s): --- Professional --- 88069, Colonoscopy, flexible; with biopsy, single or multiple Diagnosis Code(s): --- Professional --- K52.9, Noninfective gastroenteritis and colitis, unspecified CPT copyright 2020 [employer]. All rights reserved. The codes documented in this report are preliminary and upon medical records coder review may be revised to meet [...] Documents on File Type Date Recorded Patient Electronic Prepress Technician Expl anation Advance Directive(s) 11/12/2023 2:37 PM * Full Code (Latest Code Status on File) Date Activated Date Inactivated Comments 12/20/2023 10:18 PM 12/26/2023 9:02 PM Question Answer Comments Full Code Order Discussed With: Patient Care Teams Steam Shovel Engineer Relationship Specialty Start [place] [address] [place] [address] PCP - General Family Medicine 12/29/23 Jere Sales MD [address] [address] Referring Gastroenterology 12/05/20 Calin Gotti DO [address] [place] [address] Internal Medicine 10/16/23
--- OUTSIDE RECORDS SUMMARY | 2024-12-11 11:16 | XMS_ITS | Encounter Summary ---
Author Organization [facility] Address [address] [place] [address] Care Team Providers Care Chief Engineer Waterworks Name Role Phone Jere Sales MD Unavailable [phone] Calin Gotti DO Unavailable [phone] Jose Antonio Meyers MD Primary Care Provider [phone] Source Comments In the event this information is protected by the Federal Confidentiality of Alcohol and Drug AbusePatient Records regulations: The Federal rules restrict any use of the information to criminally investigate or prosecute any alcohol or drug abuse patient.[facility] Encounter Details Date Type Department Care Team (Late st Contact Info) Description 04/27/2024 GI Preprocedure Call [facility] [place] [address] [place] [address] Ronnie Haddad Jr., [address] [place] [address] Social History Tobacco Use Types Packs/Day Years Used Date Smoking Tobacco: Never Smokeless Tobacco: Never Alcohol Use Standard Drinks/Week Comments Yes 0 (1 standard drink = 0.6 oz pure alcohol) socially, no drink since 06/2023 [facility] Utilities Answer Date Recorded In the past [...] is lower risk 5 12/11/2023 Data from: https://www.neighborhoodatlas.medicine.[facility].edu/. Last address used for [...] EDT [place] [address] [place] [address] [place] [address] [place] [address] Follow-up 12/16/2024 12:30 PM EDT Office Visit Vascular Surgery [address] [place] [address] Extremity cyanosis [R23.0] 12/16/2024 3:30 PM EDT Office Visit Vascular Surgery [address] [facility] [place] [place] [address] Extremity cyanosis [R23.0] 12/22/2024 6:00 PM EDT [facility] [address] [address] Araseli Wall APRN.SENIOR MECHANICAL PROJECT ENGINEER [address] [place] [address] Elevated alkaline phosphatase leve 01/08/2025 1:00 PM EDT Appointment Radiology [address] [place] [address] [place] [address] XR CHEST 2V FRONTAL/LAT 01/11/2025 9:30 AM EDT Office Visit Pulmonary Medicine [address] [address] Triston Riggs MD [address] [place] [address] 4-6 weeks 05/21/2025 2:00 PM EST Office Visit Cardiology [address] [place] [address] [place] [address] [facility] [place] [address] 6 month follow up documented as of this encounter Goals Goal Patient Goal Type Associated Problems Recent Progress Patient-Stated? Author Blood Pressure < 130/80 Blood Pressure 120/74( 025 10:15 PM EDT) No Sung Hartley MD documented as of this encounter Visit Diagnoses Not on filedocumented in this encounter Care Teams Chief Engineer Waterworks Relationship Specialty Start [place] [address] [place] [address] PCP - General Family Medicine 12/29/23 Jere Sales MD [address] [address] Referring Gastroenterology 12/05/20 Calin Gotti DO [address] [place] [address] Internal Medicine 10/16/23 documented as of this encounter
[2024-12-11 11:31] LABS: Basophils Percent Auto 0.3 % (0.2-2.0); Hematocrit 34.8 % (42.0-54.0); Hemoglobin 11.5 g/dL (14.0-18.0); Immature Granulocytes Abs Auto 0.09 10^3/uL (0.00-0.03); Immature Granulocytes Pct Auto 1.2 % (0.0-0.5); Lymphocytes Absolute Auto 0.9 10^3/uL (1.2-3.8); Lymphocytes Percent Auto 12.1 % (20.5-60.0); Mean Corpuscular Hemoglobin 33.1 pg (25.9-34.0); Mean Corpuscular Volume 100.3 fL (80.0-94.0); Mean Platelet Volume 10.2 fL (9.5-13.5); Monocytes Absolute Auto 0.6 10^3/uL (0.3-0.8); Monocytes Percent Auto 7.6 % (1.7-12.0); Neutrophils Absolute Auto 5.7 10^3/uL (1.4-6.5); Neutrophils Percent Auto 78.8 % (43.0-75.0); Platelet Count 187 10^3/uL (150-450); Red Blood Count 3.47 10^6/uL (4.70-6.10); Red Cell Distribution Width 16.9 % (11.0-15.0); White Blood Count 7.2 10^3/uL (4.0-11.0)
[2024-12-11 12:14] LABS: Anion Gap 10.3; Calcium 9.3 mg/dL (8.5-10.1); Carbon Dioxide 31.1 mmol/L (21.0-32.0); Chloride 100 mmol/L (98-107); Estimated GFR (African America >60 (>=60 mL/min/1.73m^2); Estimated GFR (Non-African Ame 52 (>=60 mL/min/1.73m^2); Glucose 127 mg/dL (74-106); Potassium 4.4 mmol/L (3.5-5.1); Sodium 137 mmol/L (136-145)
== END 2024-12-11 11:09 | disposition home or self-care (01) ==
LOC: LAB 11:09
PROVIDERS: PCP Internal Medicine; Visit Provider Internal Medicine
DX: D64.9 Anemia, unspecified (principal); N18.9 Chronic kidney disease, unspecified
CPT/HCPCS: 36415; 80048; 85025

== ENCOUNTER 2024-12-25 13:14 | Emergency (ER) | payer MEDICARE, SELFPAY ==
--- OUTSIDE RECORDS SUMMARY | 2024-01-15 05:00 | XMS_ITS ---
Author Organization The [facility] in [place] Address [address] [place] [address] Care Team Providers Care Wood Finisher Name Role Phone Kelechi Dawit MATA Primary Care Provider Calin Espino Unavailable [phone] Allergies Allergen (clinical drug ingredient) Drug/Non Drug [...] Answer Notes Tobacco use: Nonsmoker Vital Signs Temperature 96.0 degrees Fahrenheit 01/15/20 24 Blood pressure systolic 122 mm Hg 01/15/20 24 Blood pressure diastolic 77 mm Hg 024 Heart Rate 77 /min 01/15/2024 Respiratory Rate 18 /min 01/15/2024 Height 72 in 01/15/2024 Weight 214.2 lbs 01/15/2024 BMI 29.05 kg/m2 01/15/2024 Oximetry 94 % 01/15/2024 Encounters Encounter Location Date Provider Diagnosis Pulmonary Medicine [place] [address] [place] [address] 01/15/2024 Calin Gotti Chronic cough R05.3 ; [...] drained Saturday. He has seen rheumatology at [facility] and they have not been able to determine a cause. Cytology/patholog y have returned negative for malignancy. I am not of much assistance here at [facility] given our small size. Other thought would be infectious disease. Could also consider checking cytology yet again, but if this really were malignant, overall yield with repeated thoracenteses only approaches roughly 70% of the time for positive diagnosis of malignant effusion. I suggest patient follow-up with [facility] pulmonary for second opinion. Patient states he [...] drained Saturday. He has seen rheumatology at [facility] and they have not been able to determine a cause. Cytology/pathology have returned negative for malignancy. I am not of much assistance here at [facility] given our small size. Other thought would be infectious disease. Could also consider checking cytology yet again, but if this really were malignant, overall yield with repeated thoracenteses only approaches roughly 70% of the time for positive diagnosis of malignant effusion. I suggest patient follow-up with [facility] pulmonary for second opinion. Patient states he [...] Bryan HARRIS EDOB:[birth year] (73 yo M)Acc No.[id number]:01/15/2024 Follow Up Patient: Bryan DIXON Provider: Shahzad Gotti DO :1950 A ge:73 Y S ex:Male Date:01/15/2024 Address:[address] [place] [address] [facility], [id number] Pcp:Dawit Lorenz, Check In:08:52 AM ESTCheck O ut:09:39 AM EST Subjective: * Chief Complaints: * 3 MO-PLEURAL EFFUSION * HPI: G eneral: 3 MONTH F/U Patient went to [facility]. He had a thoracostomy done on 11/20/2023. Cytology/pathology all returned negative for malignancy. The pleural fluid has not decreased in production; he then required insertion of a Pleurx catheter. Several months later, he continues to have approximately 500 mL of pleural fluid drained on a Saturday basis. He has seen rheumatology there who have not been able to identify a cause. [facility] was attempting to set them up with their own data mining analyst; the initial date was 6 months from now, but it has been moved up several months. Every attempt to get a pulmonary function test in the past failed due to issues with fluid accumulation. He voiced he would prefer to get a PFT done here at [facility]. I reviewed multiple records from [facility] today. Patient's main complaint today is to [...] recently had a Right Thoracoscopy performed at [facility] by . Patient complains of Chronic Cough with vomiting. Patient states he was seen by [facility] Pulmonary & Rheumatology (). Patient is [...] (90 Base) MCG/ACT Aerosol Solution Inhalation Breztri Aerosphere(Ccjfmow-Reusjspgodf-Doijqxmiyj) 160/9/4.8 mcg aerosol 2 puffs inhalation BID Breztri Aerosphere(Gxhugsj-Aeaqrgvbnkx-Yprncjwcws) 160/9/4.8 mcg aerosol 2 puffs inhalation BID EQ Space Chamber Anti-Static(Spacer/Aero-Holding Chambers) - Device Losartan Potassium 25 MG Tablet TAKE 1 TABLET BY MOUTH ONCE DAILY Oral Medication List reviewed and reconciled with the patientNot-Taking/PRN Albuterol Sulfate HFA 108 (90 Base) MCG/ACT Aerosol Solution Inhalation Not-Taking/PRN Breztri Aerosphere(Msspcsr-Pdwjmfrqmcp-Gttuvhwuky) 160/9/4.8 mcg aerosol 2 puffs inhalation BID Not-Taking/PRN Breztri Aerosphere(Ivgtjqa-Olufcbcyowt-Agsnebxplu) 160/9/4.8 mcg aerosol 2 puffs inhalation BID [...] Reason: D rug declined by patient B [place] ACTION PLAN Above Normal BMI Follow-up D ietary management education, guidance, and counseling * Follow Up: 6 Months (Reason: Pleural effusion) * * Sign off status: Completed Visit Status: C HK (Check Out) true * Provider: Shahzad Gotti DO Date: 01/15/2024 Generated for Madeleine rehman/Alfredo/eTransmitting on: 12/25/2024 01:21 PM EDT History and Physical Notes * HPI (History of Present Illness) Category Sub-Category Detail Notes Category Not es General Patient present s for a follow-up for Pleural Effusion. Patient recently had a Right Thoracoscopy performed at [facility] by . Patient complains of Chronic Cough with vomiting. Patient states he was seen by [facility] Pulmonary & Rheumatology (). Patient is also under the care of . Patient currently has a drain tube currently placed and is being drained Saturday, Saturday & Fridays. Patient is not currently using any inhaler at this time. Examination Category Sub-Category Detail Notes Category Not es Exam GENERAL APPEARANCE: No significant coughi ng today Skin Normal Mouth [place] and moist. No o ral candidiasis Trachea [...]
--- OUTSIDE RECORDS SUMMARY | 2024-01-20 07:32 | XMS_ITS ---
Author Organization [facility] in [place] Address [address] [place] [address] Care Team Providers Care Flight Information Expediter Name Role Phone Dawit Lorenz DO Primary Care Provider Calin Espino [phone] REASON FOR VISIT Willie Encounters Encounter Location Date Provider Diagnosis Pulmonary Medicine [place] [address] [place] [address] 01/20/2024 Calin Gotti Plan Of Treatment No Information Progress Notes * Bryan HARRIS EDOB:[birth year] (73 yo M)Acc No.[id number]:01/20/2024 Patient: Reinaldo DUNLAPBryan :1950 A ge:73 Y S ex:Male Address:[facility] [place] [address], [address] * Addendum: * true * Date: Generated for Enriquei sherie/Fadhirajg/eTransmitting on: 0 12/25/2024 01:22 PM EDT
--- OUTSIDE RECORDS SUMMARY | 2024-07-20 18:00 | XMS_ITS | Encounter Summary ---
Author Organization [facility] Address [address] [place], [place] [id number] Care Team Providers Care Box Gluer Name Role Phone Jere Sales MD Unavailable [phone] Calin Gotti DO Unavailable [phone] Jose Antonio Meyers MD Primary Care Provider [phone] Source Comments In the event this information is protected by the Federal Confidentiality of Alcohol and Drug AbusePatient Records regulations: The Federal rules restrict any use of the information to criminally investigate or prosecute any alcohol or drug abuse patient.[facility] Reason for Visit * Auth/Cert (Routine) Specialty Diagnoses / Procedures Referred By Contac t Referred To Contact ADMITTING Diagnoses 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 Last address used for calculation [address] [...] Outpatient PROCEDURE: Right Thoracentesis with Ultrasound guidance CERTIFIED PATHOLOGY ASSISTANT: Roseann London MD CUPOLA MELTER: Reza Thompson (resident), REFERRING PHYSICIAN/SERVICE Dr. Riggs [...] a teaching physician. Roseann Rosario MD Pager [phone] September 08, 2024 12:45 PM documented in this encounter Plan of Treatment Upcoming Encounters Date Type Department Care Team (Latest Contact Info) Description 01/08/2025 1:00 PM EDT Appointment Radiology [address] [place] [address] [place] [address] XR CHEST 2V FRONTAL/LAT 01/11/2025 9:30 AM EDT Office Visit Pulmonary Medicine [address] [place] [address] Triston Riggs MD [address] [place] [address] 4-6 weeks 01/26/2025 1:00 PM EDT [place] [address] [place] [address] [place] [address] [place] [address] Follow-up 02/02/2025 9:30 AM EDT Hospital Encounter Angio [address] [place] [address] OPERATIONS PROFESSIONAL [address] [place] [address] Elevated alkaline phosphatase level [R74.8] 02/02/2025 9:30 AM EDT - 02/02/2025 11:20 AM EDT Surgery Angio [address] [place] [address] OPERATIONS PROFESSIONAL [address] [place] [address] TRANSCATHETER BIOPSY 05/21/2025 2:00 PM EST Office Visit Cardiology [address] [place] [address] [place] [address] [place] [address] 6 month follow up Scheduled Procedures Name Priority Associated Diagnoses Date/Ti me TRANSCATHETER BIOPSY Elevated alkaline phosphatase level 02/02/2025 9:30 AM EDT documented as of this encounter Goals Goal [...] Routine 07/20/2024 1:30 PM EST Pleural effusion [facility] INCL FLUOR GDNCE DX W/CELL WASHG SPX 07/20/2024 12:00 PM EST Bronchiolar disease documented in this encounter Results * PROTEIN, BODY FLUID (07/20/2024 1:30 PM EST) Protein, Body Fluid 2.2 See Comment g/dL 07/20/2024 6:39 PM EST [facility] Comment: Serous fluids: Effusions are the [...] document C49A. RAJEEV Bui: Clinical Laboratory Standards [place]: 2007. Fluid, Thoracentesis PLEURAL FLUID / Unknown 07/20/2024 1:30 PM EST 07/20/2024 5:01 PM EST us Bryn Andrea MD LABORATORY Final Result [facility] [address] [facility] Desk [address] [address], [place] * LACTATE DEHYDROGENASE, BODY FLUID (07/20/2024 1:30 PM EST) LD,Body Fluid 167 See Comment U/L 07/20/2024 6:39 PM EST [facility] Comment: Pleural fluids: Pleural fluid lactate [...] document C49A. RAJEEV Bui: Clinical Laboratory Standards [place]: 2007. Reference: 2. Rafael STARK, Fei Doyle. [...] us Bryn Andrea MD LABORATORY Final Result [facility] [address] [address], * ALBUMIN, BODY FLUID (07/20/2024 1:30 PM EST) Albumin, Body Fluid 1.4 See Comment g/dL 07/20/2024 6:39 PM EST [facility] Comment: Body Fluid Albumin may be [...] document C49A. RAJEEV Bui: Clinical Laboratory Standards [place]: 2007. 2. Dionicio SERNA. Serum to ascites albumin gradient. UpToDate. 2015. Accessed on September 28, 2015. Body Fluid Type (Albumin) Pleural Cavity, Right 07/20/2024 6:39 PM EST [facility] Comment:recurrent pleual eff usion on right Fluid, Thoracentesis PLEURAL FLUID / Unknown 07/20/2024 1:30 PM EST 07/20/2024 5:01 PM EST us Bryn Andrea MD LABORATORY Final Result [facility] [address] [place] [address], documented in this encounter Visit Diagnoses Diagnosis Pleural effusion Unspecified pleural effusion Elevated alkaline phosphatase level Other nonspecific abnormal serum enzyme levels documented in this encounter Care Teams Box Gluer Relationship Specialty Start [place] [address] [place] [address] PCP - General Family Medicine 12/29/23 Jere Sales MD [address] [address] Referring Gastroenterology 12/05/20 Calin Gotti DO [address] [place] [address] Internal Medicine 10/16/23 documented as of this encounter
--- OUTSIDE RECORDS SUMMARY | 2024-07-21 05:30 | XMS_ITS ---
Author Organization The [facility] in [place] Address [address] [place] [address] Care Team Providers Care Pulp Mill Operator Name Role Phone Dawit Lorenz DO Primary Care Provider Tasneem fernandez Shila Gottihan Unavailable [phone] Allergies Allergen (clinical drug ingredient) Drug/Non Drug [...] Notes Tobacco use: Nonsmoker Vital Signs Temperature 97.0 degrees Fahrenheit 07/21/19 25 Blood pressure systolic 113 mm Hg 07/21/19 25 Blood pressure diastolic 73 mm Hg 025 Heart Rate 83 /min 07/21/2024 Respiratory Rate 18 /min 07/21/2024 Height 72 in 07/21/2024 Weight 196.4 lbs 07/21/2024 BMI 26.63 kg/m2 07/21/2024 Oximetry 96.8 % 07/21/2024 Encounters Encounter Location Date Provider Diagnosis Pulmonary Medicine [place] [address] [place] [address] 07/21/2024 Calin Gotti Pleural effusion J90 Assessments [...] able to offer would be referral to [facility] in [place], [place] for a third opinion. At this [...] able to offer would be referral to [facility] in [place], [place] for a third opinion. At this time, I am not contributing anything additional to his therapy. He will follow-up as needed. Next Appt Details Follow Up: PRN, Reason: Progress Notes * Bryan HARRIS EDOB:[birth year] (74 yo M)Acc No.[id number]:07/21/2024 Follow Up Patient: Bryan DIXON Provider: Shahzad Gotti DO :1950 A ge:74 Y S ex:Male Date:07/21/2024 Address:[address] [place] [address] , [facility], [id number] Pcp:Dawit Lorenz, Check In:08:58 AM ESTCheck O ut:10:10 AM EST Subjective: * Chief Complaints: * 6 MO-PLEURAL EFFUSION * HPI: G eneral: Patient was last seen 01/15/2024. The last communication regarding the patient was from a Dr. Meyers from [facility], a PCP who was coordinating care between [facility] specialists. He expressed concern about vasculitis; the patient was to see [facility] rheumatology. Other than this, we have received no further communications from [facility] regarding the patient's care. Last visit, the patient had a right-sided Pleurx catheter. Cynthia garcía still has the Pleurx catheter in. He is now being seen by Dr. Triston Riggs, pulmonogist @ [facility]. He has seen multiple other pulmonologists @ [facility]. None still have an exact clue for [...] follow-up. Patient is under the care of [facility] Specialist. Patient reports being drained daily by [...] (90 Base) MCG/ACT Aerosol Solution Inhalation Breztri Aerosphere(Ukfecao-Txphiqbgucl-Lomvpqevag) 160/9/4.8 mcg aerosol 2 puffs inhalation BID Breztri Aerosphere(Skslaeb-Qbhsdfiaifq-Hdfyhegjof) 160/9/4.8 mcg aerosol 2 puffs inhalation BID EQ Space Chamber Anti-Static(Spacer/Aero-Holding Chambers) - Device Furosemide 80 MG Tablet Oral Losartan Potassium 25 MG Tablet TAKE 1 TABLET BY MOUTH ONCE DAILY Oral Medication List reviewed and reconciled with the patientDiscontinued Albuterol Sulfate HFA 108 (90 Base) MCG/ACT Aerosol Solution Inhalation Discontinued Breztri Aerosphere(Czaafqy-Mfmafmmmrbn-Duxrniysba) 160/9/4.8 mcg aerosol 2 puffs inhalation BID Discontinued Breztri Aerosphere(Ceglyeo-Hosgiiqbjux-Crzelsayxn) 160/9/4.8 mcg aerosol 2 puffs inhalation BID [...] Reason: D rug declined by patient B [place] ACTION PLAN Above Normal BMI Follow-up D ietary management education, guidance, and counseling R SV Vaccine-05/27/2024. * Follow Up: P RN * * Sign off status: Completed Visit Status: C HK (Check Out) true * Provider: Shahzad Gotti DO Date: 07/21/2024 Generated for Madeleine rehman/Alfredo/Madelaineitting on: 12/25/2024 01:21 PM EDT History and Physical Notes * Examination Category Sub-Category Detail Notes Category Not es Exam GENERAL APPEARANCE: No acute distress Skin Normal Mouth [place] and moist. No o ral candidiasis Trachea [...]
--- OUTSIDE RECORDS SUMMARY | 2024-12-15 11:15 | XMS_ITS | Encounter Summary ---
Author Organization [facility] Address [facility] [place] [address] Care Team Providers Care Gas Dispenser Name Role Phone Jere Sales MD Unavailable [phone] Calin Gotti DO Unavailable [phone] Jose Antonio Meyers MD Primary Care Provider [phone] Source Comments In the event this information is protected by the Federal Confidentiality of Alcohol and Drug AbusePatient Records regulations: The Federal rules restrict any use of the information to criminally investigate or prosecute any alcohol or drug abuse patient.[facility] Reason for Visit * Reason Comments Fatigue Encounter Details Date Type Department Care Team (Late st Contact Info) Description 12/15/2024 11:15 AM EDT [place] [address] [place] [address] [place] [address] [place] [address] Mixed connective tissue disease (HCC) (Primary Dx); Urge incontinence; Hypokalemia; Recurrent 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; Muscle cramps; Hiatal hernia Social History Tobacco Use Types Packs/Day Years Used Date Smoking Tobacco: Never Smokeless Tobacco: Never Alcohol Use Standard Drinks/Week Comments Yes 0 (1 standard drink = 0.6 oz pure alcohol) socially, no drink since 06/2023 [facility] Utilities Answer Date Recorded In [...] risk 5 12/11/2023 Data from: https://www.neighborhoodatlas.medicine.[facility]/. Last address used for calculation [address] [...] Notes * Jose Antonio Meyers MD - 12/15/2024 11:34 AM EDT PROGRESS NOTES Patient Name: Bryan Harris SERVICE DATE: 12/15/2024 SERVICE TIME: 11:34 AM HPI: Mr. Harris is a 74 year old male who presents for Fatigue,has been started on spironolactone and take diuretics according to his weight MEDICATIONS: Current Outpatient Medications Medication Sig Dispense Refill mirabegron (MYRBETRIQ) 50 mg Tb24 Take 1 tablet by mouth every evening. 30 tablet 2 potassium chloride ER (KLOR-CON M20) 20 mEq tablet Take 2 tablets by mouth three times a day. 540 tablet 0 sucralfate (CARAFATE) 1 gram tablet Take 1 tablet by mouth four times daily. 120 tablet 2 quiNINE 324 mg capsule Take 1 capsule by mouth twice daily 60 capsule 0 torsemide (DEMADEX) 100 mg tablet Take 1 tablet by mouth once daily. 90 tablet 1 famotidine (PEPCID) 20 mg tablet Take 1 tablet by mouth two times a day. 180 tablet 0 metOLazone (ZAROXOLYN) 5 mg tablet Take 1 tablet by mouth once daily. 90 tablet 0 ascorbic acid, vitamin C, (VITAMIN C) 500 mg tablet Take 1,000 mg by mouth once daily. multivit-min/ferrous fumarate (MULTI VITAMIN ORAL) Take 1 tablet by mouth once daily. guaifenesin/dextromethorphan (MUCINEX DM ORAL) Take by mouth two times a day. loratadine (CLARITIN) 10 mg tablet Take 10 mg by mouth once daily. calcium enm-igt-K2-Zn-copying machine mechanic-kian 250 mg-40 mg- 125 unit-3.75mg tab Take [...] intolerance, polyuria, polydipsia and goiter. PHYSICAL EXAMINATION: There were no vitals taken for this visit. General appearance: Overweight, healthy, cooperative, in no [...] diaphragmatic excursion. Lungs clear to auscultation. Heart: [place] normal. Precordium quiet. RRR. Normal HS with no murmurs.. Abdomen: Abdomen soft, non-tender. BS normal. No masses, organomegaly Extremities: Normal exam of the extremities, Extremities normal. No deformities,trace edema, or skin discoloration Musculoskeletal: Spine ROM normal. Muscular strength intact. Peripheral pulses: normal, capilliary refill <2secs, strong peripheral pulses Neuro: Gait normal. Reflexes normal and symmetric. Sensation grossly intact. ASSESSMENT/PLAN: 1. Mixed connective tissue disease (HCC) - ICD9: 710.8, ICD10: M35.1 (primary diagnosis) - Continue care 2. Urge incontinence - ICD9: 788.31, ICD10: N39.41 - MIRABEGRON ER 50 MG TABLET,EXTENDED RELEASE 24 HR start 3. Hypokalemia - ICD9: 276.8, ICD10: E87.6 - POTASSIUM CHLORIDE ER 20 MEQ TABLET,EXTENDED RELEASE(PART/CRYST) - BASIC METABOLIC PANEL 4. Recurrent 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 - ICD9: 511.9, ICD10: J90 5. Muscle cramps - ICD9: 729.82, ICD10: R25.2 - Resolved 6. Hiatal hernia - ICD9: 553.3, ICD10: K44.9 - SUCRALFATE 1 GRAM TABLET Jose Antonio Meyers MD SIGNATURE: Jose Antonio Meyers MD DATE: December 15, 2024 TIME: 11:34 AM documented in this encounter Plan of Treatment Upcoming Encounters Date Type Department Care Team (Latest Contact Info) Description 01/08/2025 1:00 PM EDT Appointment Radiology [address] [place] [address] [place] [address] XR CHEST 2V FRONTAL/LAT 01/11/2025 9:30 AM EDT Office Visit Pulmonary Medicine [address] [place] [address] Triston Riggs MD [address] [place] [address] 4-6 weeks 01/26/2025 1:00 PM EDT [place] [address] [facility] [place] [address] [place] [address] [facility] [address] Follow-up 02/02/2025 9:30 AM EDT Hospital Encounter Angio [address] [place] [address] BOX FABRICATOR [address] [place] [address] Elevated alkaline phosphatase level [R74.8] 02/02/2025 9:30 AM EDT - 02/02/2025 11:20 AM EDT Surgery [facility]io [address] [facility] [place] [address] BOX FABRICATOR [address] [place] [address] TRANSCATHETER BIOPSY 05/21/2025 2:00 PM EST Office Visit Cardiology [address] [place] [address] [place] [address] [facility] [place] [address] 6 month follow up Scheduled Procedures Name Priority Associated Diagnoses Date/Ti me TRANSCATHETER BIOPSY Elevated alkaline phosphatase level 02/02/2025 9:30 AM EDT documented as of this encounter Goals Goal Patient Goal Type Associated Problems Recent Progress Patient-Stated? Author Blood Pressure < 130/80 Blood Pressure 120/74( 025 10:15 PM EDT) No Sung Hartley MD documented as of this encounter Results * (ABNORMAL) BASIC METABOLIC PANEL (12/22/2024 10:08 AM EDT) Glucose 119(H) 74 - 99 mg/dL 12/22/2024 5:16 PM EDT [facility] Comment: The [place] [employer] (ADA) provides guidance for cutoff [...] Standards of Medical Care in Diabetes 2016, [place] [employer]. Diabetes Care. 2016.39(Suppl 1). BUN 45(H) 9 - 24 mg/dL 12/22/2024 5:16 PM EDT [facility] Creatinine 1.60(H) 0.73 - 1.22 mg/dL 12/22/2024 5:16 PM EDT [facility] Sodium 136 136 - 144 mmol/L 12/22/2024 5:16 PM EDT [facility] Potassium 4.3 3.7 - 5.1 mmol/L 12/22/2024 5:16 PM EDT [facility] Chloride 98 98 - 107 mmol/L 12/22/2024 5:16 PM EDT [facility] CO2 26 22 - 30 mmol/L 12/22/2024 5:16 PM EDT [facility] Anion Gap 12 8 - 15 mmol/L 12/22/2024 5:16 PM EDT [facility] Calcium, Total 9.6 8.5 - 10.2 mg/dL 12/22/2024 5:16 PM EDT [facility] Estimated Glomerular Filtration Rate 45(L) >=60 mL/min/1. 73m 12/22/2024 5:16 PM EDT [facility] Comment:Estimated Glomerular Filtration Rate (eGFR) [...] BLOOD SPECIMEN / Unknown Venipuncture / Unknown 12/22/2024 10:08 AM EDT 12/22/2024 10:08 AM EDT us Jose Antonio Meyers MD LABORATORY Final Resul t [facility] [address] [address], documented in this encounter Visit Diagnoses Diagnosis Mixed connective tissue disease (HCC)- Primary Other specified diffuse disease of connective tissue Urge incontinence Hypokalemia Hypopotassemia Recurrent 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 Unspecified pleural effusion Muscle cramps Cramp of limb Hiatal hernia Diaphragmatic hernia without mention of obstruction or gangrene Elevated alkaline phosphatase level Other nonspecific abnormal serum enzyme levels documented in this encounter Care Teams Gas Dispenser Relationship Specialty Start [place] [address] [place] [address] PCP - General Family Medicine 12/29/23 Jere Sales MD [address] [address] Referring Gastroenterology 12/05/20 Calin Gotti DO [address] [place] [address] Internal Medicine 10/16/23 documented as of this encounter
--- OUTSIDE RECORDS SUMMARY | 2024-12-22 18:00 | XMS_ITS | Encounter Summary ---
Author Organization [facility] Address [address] [place] [address] Care Team Providers Care Hurricane Tracker Name Role Phone Jere Sales MD Unavailable [phone] Calin Gotti DO Unavailable [phone] Jose Antonio Meyers MD Primary Care Provider [phone] Source Comments In the event this information is protected by the Federal Confidentiality of Alcohol and Drug AbusePatient Records regulations: The Federal rules restrict any use of the information to criminally investigate or prosecute any alcohol or drug abuse patient.[facility] Reason for Referral * Consult, Test, Treat (Routine) - Authorized Specialty Diagnoses / Procedures Referred By Contac t Referred To Contact Nephrology Diagnoses Elevated serum creatinine Procedures CONSULT TO KIDNEY MEDICINE OFFICE/OUTPATIENT [facility] 60 MINUTES Araseli Wall APRN.OFFICE SERVICES ASSOCIATE [address] [place] [address] Phone: tel: fax: Referral ID Status Reason Start Date Expiration Date Visits Requested Visits Authorized [id number] Authorized PCP Requested Referral 12/22/2024 12/22/2025 1 1 Reason for Visit * Reason Comments elevated alkaline phosphatase * Consult, Test, Treat (Routine) - Closed Specialty Diagnoses / Procedures Referred By Contac t Referred To Contact Diagnoses Elevated alkaline phosphatase level Procedures CONSULT TO HEPATOLOGY OFFICE/OUTPATIENT [facility] 60 MINUTES Xiomara Santoyo APRN.OFFICE SERVICES ASSOCIATE [address] [place] [address] Phone: tel: fax: Referral ID Status Reason Start Date Expiration Date V isits Requested Visits Authorized [id number] Closed PCP Requested Referral 10/15/2024 10/15/2025 1 1 Encounter Details Date Type Department Care Team (Latest Contact Info) Description 12/22/2024 6:00 PM EDT [facility] Gastroenterology [address] [address] Araseli Wall APRN.OFFICE SERVICES ASSOCIATE [address] [place] [address] Elevated serum creatinine (Primary Dx); Elevated alkaline phosphatase level Social History Tobacco Use Types Packs/Day Years Used Date Smoking Tobacco: Never Smokeless Tobacco: Never Alcohol Use Standard Drinks/Week Comments Yes 0 (1 standard drink = 0.6 oz pure alcohol) socially, no drink since 06/2023 [facility] Utilities Answer Date Recorded In the past 12 months has [employer], gas, oil, or water [employer] threatened to shut off services in your [...] 5 12/11/2023 Data from: https://www.neighborhoodatlas.medicine.[facility].edu/. Last address used for calculation [address] [...] Orlando Welsh RN documented in this encounter Patient Instructions * Patient Instructions* Araseli Wall APRN.OFFICE SERVICES ASSOCIATE - 12/22/2024 7:12 PM EDT We discussed your liver health and elevated liver enzymes: - Your recent labs show that your alkaline phosphatase has normalized, but your AST remains slightly elevated. No liver enzymes were included in today???s blood work. - Imaging from November 23 shows morphological changes consistent with chronic liver disease, with mild nodularity and stiffness in the liver. This suggests possible cirrhosis (advanced liver scarring),which may be contributing to your fluid retention and other symptoms. - To confirm the extent of liver damage and determine the cause, I recommend proceeding with a liver biopsy. This will provide detailed information about scarring and fat in the liver. I have placed the order for this procedure, and you can schedule it at [facility] or the main campus by calling [phone]. - Additional blood work has been ordered to rule out autoimmune or viral causes of liver damage. You can complete this at [facility] or another lab location. We discussed your kidney health: - Your creatinine levels, which indicate kidney function, are continuing to rise. I recommend seeing a armature and rotor winder (kidney specialist) to evaluate this further and assess your current use of water pills (torsemide). I have placed a referral for nephrology, and you can schedule an appointment by calling [phone]. Virtual visits may also be an option. We discussed your fluid retention and current medication regimen: - Your fluid retention is being managed with torsemide, but the dosing schedule is complex and may need adjustment. A armature and rotor winder can help optimize this to protect your kidney function. - Your ultrasound also showed a small amount of fluid in your abdomen (ascites), but not enough to require drainage at this time. Next steps: - Schedule the liver biopsy and nephrology appointment as soon as possible using the numbers provided above. - Complete the additional blood work at your earliest convenience. - Monitor your symptoms, including swelling, fatigue, appetite changes, or any new concerns, and contact me through [facility] if needed. - I will review the biopsy and blood work results once they are available and contact you with nextsteps. Please let me know if you have any questions or concerns in the meantime. documented in this encounter Progress Notes * Araseli Wall APRN.CNP - 12/22/2024 6:00 PM EDT VIRTUAL VISIT PROGRESS NOTE This is a virtual visit using [employer] Zoom Video Visit. It required patient- provider interaction for the medical decision making as documented below. I have communicated my name and active licensure. The patient's identity and physical location wereverified at the time of this visit. Either the patient or their legal construction sales representative has been informed of the risks and benefits of -- and alternatives to -- treatment through a remote evaluation andconsents to proceed with the evaluation remotely. HPI: The patient is a pleasant 74-year-old male presenting for evaluation of persistent fluid accumulation and elevated liver enzymes. He is accompanied by his , who provides additional history. He reports ongoing fluid retention affecting his chest, legs, and abdomen, which has been present since undergoing pleural effusion surgery in November 2022. He has not required abdominal paracentesis todate. The etiology of his fluid accumulation remains unclear despite evaluation by rheumatology, pulmonology, gastroenterology, and load out person, as well as recent vascular testing. The fluidis currently being managed with torsemide, which he takes based on daily weight parameters: he doesnot take it if his weight is below 178 lbs, takes it if between 178-182 lbs, and if over 182 lbs. He notes that no definitive cause for the fluid has been identified, though some physicians have suggested a hepatic or kidney origin. Recent laboratory testing has shown persistently elevated AST, while alkaline phosphatase has normalized. He is not currently followed by a armature and rotor winder, but his creatinine has been rising. An abdominal ultrasound performed on 11/24/2023 demonstrated morphological changes consistent with chronic liver disease, including mild nodularity, and a liver stiffness assessment was compatible with compensated advanced chronic liver disease. He has also had a small volume of ascites noted on imaging, but not enough to require drainage. Cardiac causes for his fluid retention have been ruled out, and he has no known history of cancer. He denies right upper quadrant abdominal pain, fever, chills, jaundice, dark urine, pale stools, hematochezia, melena, or hematemesis. He reports intermittent nausea and a decreased appetite comparedto baseline. He has experienced significant weight loss, estimating a total of 50-60 lbs lost since his hospitalization at [facility] on 12/19/2022 for lower extremity swelling, with approximately 30 lbs lost during that admission (IV Lasix). He also endorses marked fatigue, stating he becomes out of gas quick. Regarding risk factors, he reports very light social alcohol use in the past but has not consumed alcohol since July 2022. He is not diabetic, though his glucose has been mildly elevated. He is not currently on antihypertensive medications, and his home blood pressure readings range from 112-124/70-80 mmHg. He states his cholesterol is fairly low or under control, and he was previously on atorvastatin (Lipitor), which has since been discontinued. He denies any known autoimmune disorders, and rheumatology evaluation earlier this year was unrevealing. He is not overweight and attributes his weight loss to recent illness and hospitalization. He is currently managed with torsemide as described above. He previously had a Pleurex tube placed,which was removed on 11/20/2023, and he is scheduled for follow-up chest imaging and a visit with to monitor for recurrence of pleural fluid. The patient and his express that the ongoing symptoms and diagnostic uncertainty have significantly impacted his quality of life, stating that life has come to a screeching halt in 2 years. Diagnostics: (Today) BMP: Creatinine elevated, trending upward. (11/23) Abdominal Ultrasound with Liver Stiffness Assessment: Morphological changes of chronic liver disease with mild nodularity. No hepatic lesion. Stiffness measurement compatible with compensatedadvanced chronic liver disease. (11/17) Laboratory Tests: - Alkaline phosphatase: Normalized - AST: Mildly elevated Labs: 11/17/2024: AP 112, AST 47, ALT 34, Total Bili 0.8, Albumin 4.1 and platelets 150 US abd RUQ 11/23/2024: IMPRESSION: Morphological changes of chronic liver disease. No hepatic lesion. The liver stiffness assessment was 13.2 kPa, compatible with compensated advanced chronic liver disease. Patient denies RUQ pain, shortness of breath, signs of fluid retention, fever, chills, nausea, jaundice, dark colored urine, pale colored stools, constipation, diarrhea, hematemesis, melena, decreased appetite, muscle wasting, confusion, weight loss and fatigue Metabolic Syndrome Risk factors: ?/5 1) Diabetes/ Abnormal FBS >100mg/dL:Pre-diabetes 2) Hypertension : No 3)Triglycerides more then 150 : ? 4) HDL (<50 female and <40 male): ? 5) Central obesity ( Waist >102 men and >88 female) - Body mass index is 23.46 kg/(m^2). HISTORY REVIEWED (electronic chart updated): PAST MEDICAL HISTORY Diagnosis Date GERD (gastroesophageal [...] use: Never Current Outpatient Medications Medication Sig mirabegron (MYRBETRIQ) 50 mg Tb24 Take 1 tablet by mouth every evening. potassium chloride ER (KLOR-CON M20) 20 mEq tablet Take 2 tablets by mouth three times a day. sucralfate (CARAFATE) 1 gram tablet Take 1 tablet by mouth four times daily. quiNINE 324 mg capsule Take 1 capsule by mouth twice daily torsemide (DEMADEX) 100 mg tablet Take 1 tablet by mouth once daily. famotidine (PEPCID) 20 mg tablet Take 1 tablet by mouth two times a day. metOLazone (ZAROXOLYN) 5 mg tablet Take 1 tablet by mouth once daily. ascorbic acid, vitamin C, (VITAMIN C) 500 mg tablet Take 1,000 mg by mouth once daily. multivit-min/ferrous fumarate (MULTI VITAMIN ORAL) Take 1 tablet by mouth once daily. guaifenesin/dextromethorphan (MUCINEX DM ORAL) Take by mouth two times a day. loratadine (CLARITIN) 10 mg tablet Take 10 mg by mouth once daily. calcium ioo-hcv-L4-Zn-fluoroscope operator-kian 250 mg-40 mg- 125 unit-3.75mg tab Take by mouth. diclofenac (VOLTAREN) 1 % topical gel allopurinol (ZYLOPRIM) 300 mg tablet Take 300 mg by mouth once daily. atorvastatin (LIPITOR) 10 mg tablet Take 1 tablet by mouth once daily. No current facility-administered medications for this visit. ALLERGIES Allergen Reactions Tramadol Mental Status Change REVIEW OF SYSTEMS: Constitutional: (+) weight loss, (+) fatigue, (+) decreased appetite Cardiovascular: (+) edema Gastrointestinal: (+) abdominal swelling, (-) pale stools, (-) hematochezia, (-) hematemesis, (-) melena Genitourinary: (-) dark urine Skin: (-) jaundice PHYSICAL EXAMINATION: VIDEO EXAM: (if completed, performed via video enabled technology) GENERAL: alert and appropriate, in no distress, well-hydrated, well nourished, and happy, smiling, interactive ASSESSMENT/PLAN 1. Elevated alkaline phosphatase level (R74.8) Alkaline phosphatase levels have normalized in the most recent lab draw from November 17. Previous ultrasound on November 23 showed morphological changes of chronic liver disease with a mildly nodular liver and a stiffness assessment compatible with compensated advanced chronic liver disease, suggesting possible cirrhosis. - Ordered blood work to rule out autoimmune and viral causes specific to the liver. - Scheduled a liver biopsy to determine the extent of fat and scarring in the liver. - Patient to follow up with results via MyChart or phone call. 2. Elevated serum creatinine (R79.89) Serum creatinine levels are continuing to rise, indicating potential kidney dysfunction. Patient isnot currently under the care of a armature and rotor winder. - Referral to nephrology for further evaluation and management. - Provided patient with scheduling number for nephrology appointment. - Advised patient to monitor kidney function closely. I spent a total of 45 minutes on the date of the service which included preparing to see the patient, [id number] patient care, completing clinical documentation, counseling and educating the patient/family/caregiver, ordering medications, tests, or procedures, and communicating results to the raquel ent/family/caregiver Araseli Wall APRN.CURT documented in this encounter Plan of Treatment Upcoming Encounters Date Type Department Care Team (Latest Contact Info) Description 01/08/2025 1:00 PM EDT Appointment Radiology [address] [place] [address] [place] [address] XR CHEST 2V FRONTAL/LAT 01/11/2025 9:30 AM EDT Office Visit Pulmonary Medicine [address] [place] [address] Triston Riggs MD [address] [place] [address] 4-6 weeks 01/26/2025 1:00 PM EDT [place] [address] [facility] [place] [address] [place] [address] [place] [address] Follow-up 02/02/2025 9:30 AM EDT Hospital Encounter Angio [address] [place] [address] BENEFITS COORDINATOR [address] [place] [address] Elevated alkaline phosphatase level [R74.8] 02/02/2025 9:30 AM EDT - 02/02/2025 11:20 AM EDT Surgery [facility]io [address] [facility] [address] BENEFITS COORDINATOR [address] [place] [address] TRANSCATHETER BIOPSY 05/21/2025 2:00 PM EST Office Visit Cardiology [address] [place] [address] [place] [address] [facility] [place] [address] 6 month follow up Scheduled Orders Name Type Priority Associated Diagnoses Orde r Schedule IR TRANSJUGULAR LIVER BX W/PRESS Radiology Routine Elevated alkaline phosphatase level Ordered: 12/22/2024 [id number] Lab Routine Elevated alkaline phosphatase level Expected: 12/22/2024, Expires: 03/23/2025 IRON AND TIBC Lab Routine Elevated alkaline phosphatase level Expected: 12/22/2024, Expires: 03/23/2025 FERRITIN Lab Routine Elevated alkaline phosphatase level Expected: 12/22/2024, Expires: 03/23/2025 HEP REMOTE PANEL BL Lab Routine Elevated alkaline phosphatase level Expected: 12/22/2024, Expires: 03/23/2025 GREY BY IFA WITH REFLEX Lab Routine Elevated alkaline phosphatase level Expected: 12/22/2024, Expires: 03/23/2025 SMOOTH MUSCLE AB SCR Lab Routine Elevated alkaline phosphatase level Expected: 12/22/2024, Expires: 03/23/2025 MITOCHONDRIAL M2 IGG SERUM Lab Routine Elevated alkaline phosphatase level Expected: 12/22/2024, Expires: 03/23/2025 LIVER-KIDNEY MICROSOME ANTIBODY, IGG Lab Routine Elevated alkaline phosphatase level Expected: 12/22/2024, Expires: 03/23/2025 CMV IGM AB Lab Routine Elevated alkaline phosphatase level Expected: 12/22/2024, Expires: 03/23/2025 GGT Lab Routine Elevated alkaline phosphatase level Expected: 12/22/2024, Expires: 03/23/2025 COMPREHENSIVE METABOLIC PANEL Lab Routine Elevated alkaline phosphatase level Expected: 12/22/2024, Expires: 03/23/2025 COMPLETE BLOOD COUNT Lab Routine Elevated alkaline phosphatase level Expected: 12/22/2024, Expires: 03/23/2025 PROTHROMBIN TIME Lab Routine Elevated alkaline phosphatase level Expected: 12/22/2024, Expires: 03/23/2025 Scheduled Procedures Name Priority Associated Diagnoses Date/Ti me TRANSCATHETER BIOPSY Elevated alkaline phosphatase level 02/02/2025 9:30 AM EDT documented as of this encounter Goals Goal Patient Goal Type Associated Problems Recent Progress Patient-Stated? Author Blood Pressure < 130/80 Blood Pressure 120/74( 025 10:15 PM EDT) No Sung Hartley MD documented as of this encounter Visit Diagnoses Diagnosis Elevated serum creatinine- Primary Other nonspecific findings on examination of blood Elevated alkaline phosphatase level Other nonspecific abnormal serum enzyme levels Elevated alkaline phosphatase level Other nonspecific abnormal serum enzyme levels documented in this encounter Care Teams Hurricane Tracker Relationship Specialty Start [place] [address] [place] [address] PCP - General Family Medicine 12/29/23 Jere Sales MD [address] [address] Referring Gastroenterology 12/05/20 Calin Gotti DO [address] [place] [address] Internal Medicine 10/16/23 documented as of this encounter
--- OUTSIDE RECORDS SUMMARY | 2024-12-25 13:21 | XMS_ITS | Encounter Summary ---
Author Organization [facility] Address [facility] [place] [address] Care Team Providers Care Bottle Filler Name Role Phone Jere Sales MD Unavailable [phone] Calin Gotti DO Unavailable [phone] Jose Antonio Meyers MD Primary Care Provider [phone] Source Comments In the event this information is protected by the Federal Confidentiality of Alcohol and Drug AbusePatient Records regulations: The Federal rules restrict any use of the information to criminally investigate or prosecute any alcohol or drug abuse patient.[facility] Encounter Details Date Type Department Care Team (Late st Contact Info) Description 08/25/2024 Get Medical Advice Pulmonary Medicine [address] [place] [address] Triston Riggs MD [address] [place] [address] Willie Harris . 1950 Social History Tobacco Use Types Packs/Day Years Used Date Smoking Tobacco: Never Smokeless Tobacco: Never Alcohol Use Standard Drinks/Week Comments Yes 0 (1 standard drink = 0.6 oz pure alcohol) socially, no drink since 06/2023 [facility] Utilities Answer Date Recorded In [...] is lower risk 5 12/11/2023 Data from: https://www.neighborhoodatlas.medicine.[facility].edu/. Last address used for calculation [...] Description 01/08/2025 1:00 PM EDT Appointment Radiology [address] [place] [address] [place] [address] XR CHEST 2V FRONTAL/LAT 01/11/2025 9:30 AM EDT Office Visit Pulmonary Medicine [address] [place] [address] Triston Riggs MD [address] [place] [address] 4-6 weeks 01/26/2025 1:00 PM EDT [place] [address] [place], [place] [address] [place] [address] [place] [address] Follow-up 02/02/2025 9:30 AM EDT Hospital Encounter Angio [address] [place] [address] INSIDE SALES COORDINATOR [address] [place] [address] Elevated alkaline phosphatase level [R74.8] 02/02/2025 9:30 AM EDT - 02/02/2025 11:20 AM EDT Surgery Angio [address] [place] [address] INSIDE SALES COORDINATOR [address] [place] [address] TRANSCATHETER BIOPSY 05/21/2025 2:00 PM EST Office Visit Cardiology [address] [place] [address] [place] [address] [facility] [place] [address] 6 month follow up Scheduled Procedures Name Priority Associated Diagnoses Date/Ti ut TRANSCATHETER BIOPSY Elevated alkaline phosphatase level 02/02/2025 9:30 AM EDT documented as of this encounter Goals Goal Patient Goal Type Associated Problems Recent Progress Patient-Stated? Author Blood Pressure < 130/80 Blood Pressure 120/74( 025 10:15 PM EDT) No Sung Hartley MD documented as of this encounter Visit Diagnoses Not on filedocumented in this encounter Care Teams Bottle Filler Relationship Specialty Start [place] [address] [facility] [place] [address] PCP - General Family Medicine 12/29/23 Jere Sales MD [address] [address] Referring Gastroenterology 12/05/20 Calin Gotti DO [address] [place] [address] Internal Medicine 10/16/23 documented as of this encounter
--- OUTSIDE RECORDS SUMMARY | 2024-12-25 13:21 | XMS_ITS | Encounter Summary ---
Author Organization [facility] Address [address] [place] [address] Care Team Providers Care Ground Defence Officer Name Role Phone Jere Sales MD Unavailable [phone] Calin Gotti DO Unavailable [phone] Jose Antonio Meyers MD Primary Care Provider [phone] Source Comments In the event this information is protected by the Federal Confidentiality of Alcohol and Drug AbusePatient Records regulations: The Federal rules restrict any use of the information to criminally investigate or prosecute any alcohol or drug abuse patient.[facility] Reason for Referral * Outpatient Procedure (Routine) - New Request Specialty Diagnoses / Procedures Referred By Contac t Referred To Contact [facility] Diagnoses Cough, unspecified type Procedures NITRIC OXIDE, EXHALED NITRIC OXIDE GAS DETERMINATION Louise Douglas MD [facility] [place] [address] Phone: tel: fax: [facility] [place] [address] [place] [address] Referral ID Status Reason Start Date Expiration Date Visits Requested Visits Authorized [id number] New Request Auto-Generat ed Referral 01/10/2024 02/08/2025 1 1 Encounter Details Date Type Department Care Team (Latest Contact Info) Description 01/10/2024 Transcribe Orders [facility] [place] [address] [place] [address] Louise Douglas MD [address] [place] [address] Cough, unspecified type (Primary Dx) Social History Tobacco Use Types Packs/Day Years Used Date Smoking Tobacco: Never Smokeless Tobacco: Never [facility] Utilities Answer Date Recorded In the past 12 months has th e ididwork, gas, oil, or water Sarta threatened to shut off services in your [...] from: https://www.neighborhoodatlas.medicine.[facility]/. Last address used for calculation [address] [...] Description 01/08/2025 1:00 PM EDT Appointment Radiology [address] [place] [address] [place] [address] XR CHEST 2V FRONTAL/LAT 01/11/2025 9:30 AM EDT Office Visit Pulmonary Medicine [address] [place] [address] Triston Riggs MD [address] [place] [address] 4-6 weeks 01/26/2025 1:00 PM EDT [place] [address] [place] [address] [place] [address] [place] [address] Follow-up 02/02/2025 9:30 AM EDT Hospital Encounter Angio [address] [place] [address] DEVELOPMENTAL THERAPIST [address] [place] [address] Elevated alkaline phosphatase level [R74.8] 02/02/2025 9:30 AM EDT - 02/02/2025 11:20 AM EDT Surgery Angio [address] [place] [address] DEVELOPMENTAL THERAPIST [address] [place] [address] TRANSCATHETER BIOPSY 05/21/2025 2:00 PM EST Office Visit Cardiology [address] [place] [address] [place] [address] [facility] [place] [address] 6 month follow up Scheduled Orders Name Type Priority Associated Diagnoses Orde r Schedule NITRIC OXIDE, EXHALED PFT Routine Cough, unspecified type 1 Occurrences starting 01/10/2024 until 02/08/2025 Scheduled Procedures Name Priority Associated Diagnoses Date/Ti [...] any questions regarding this interpretation, please call [phone]. If you are unable to reach us at the number above, please feel free to contact [facility] at [phone]. Narrative 10/13/2024 3:26 PM EDT * * [...] and soft tissues: Unremarkable. Procedure Note Provider, [facility] [place] - 10/13/2024 * * *Final Report* * [...] any questions regarding this interpretation, please call [phone]. If you are unable to reach us at the number above, please feel free to contact [facility] at [phone]. us Louise Douglas MD RAD-PAMA Final Result documented in this encounter Visit Diagnoses Diagnosis Cough, unspecified type- Primary Cough, unspecified type Elevated alkaline phosphatase level Other nonspecific abnormal serum enzyme levels documented in this encounter Care Teams Ground Defence Officer Relationship Specialty Start [place] [address] [facility] [place] [address] PCP - General Family Medicine 12/29/23 Jere Sales MD [address] [address] Referring Gastroenterology 12/05/20 Calin Gotti DO [address] [place] [address] Internal Medicine 10/16/23 documented as of this encounter
--- OUTSIDE RECORDS SUMMARY | 2024-12-25 13:21 | XMS_ITS | Encounter Summary ---
Author Organization [facility] Address [address] [place] [address] Care Team Providers Care Dispute Resolution Analyst Name Role Phone Jere Sales MD Unavailable [phone] Calin Gotti DO Unavailable [phone] Jose Antonio Meyers MD Primary Care Provider [phone] Source Comments In the event this information is protected by the Federal Confidentiality of Alcohol and Drug AbusePatient Records regulations: The Federal rules restrict any use of the information to criminally investigate or prosecute any alcohol or drug abuse patient.[facility] Encounter Details Date Type Department Care Team (Late st Contact Info) Description 10/07/2024 Get Medical Advice Pulmonary Medicine [address] [place], [place] [id number] Katerina Pascual PA-C [address] [place] [address] Willie Harris 1950 Social History Tobacco Use Types Packs/Day Years Used Date Smoking Tobacco: Never Smokeless Tobacco: Never Alcohol Use Standard Drinks/Week Comments Yes 0 (1 standard drink = 0.6 oz pure alcohol) socially, no drink since 06/2023 [facility] Utilities Answer Date Recorded In the [...] lower risk 5 12/11/2023 Data from: https://www.neighborhoodatlas.medicine.[facility].edu/. Last address used for calculation [...] Description 01/08/2025 1:00 PM EDT Appointment Radiology [address] [place] [address] [place] [address] XR CHEST 2V FRONTAL/LAT 01/11/2025 9:30 AM EDT Office Visit Pulmonary Medicine [address] [place] [address] Triston Riggs MD [address] [place] [address] 4-6 weeks 01/26/2025 1:00 PM EDT [place] [address] [place] [address] [place] [address] [place] [address] Follow-up 02/02/2025 9:30 AM EDT Hospital Encounter Angio [address] [place] [address] IT SECURITY PROJECT MANAGER [address] [place] [address] Elevated alkaline phosphatase level [R74.8] 02/02/2025 9:30 AM EDT - 02/02/2025 11:20 AM EDT Surgery Angio [address] [place] [address] IT SECURITY PROJECT MANAGER [address] [place] [address] TRANSCATHETER BIOPSY 05/21/2025 2:00 PM EST Office Visit Cardiology [address] [place] [address] [place] [address] [place] [address] 6 month follow up Scheduled Procedures Name Priority Associated Diagnoses Date/Ti nv TRANSCATHETER BIOPSY Elevated alkaline phosphatase level 02/02/2025 9:30 AM EDT documented as of this encounter Goals Goal Patient Goal Type Associated Problems Recent Progress Patient-Stated? Author Blood Pressure < 130/80 Blood Pressure 120/74( 025 10:15 PM EDT) No Sung Hartley MD documented as of this encounter Visit Diagnoses Not on filedocumented in this encounter Care Teams Dispute Resolution Analyst Relationship Specialty Start [place] [address] [facility] [place] [address] PCP - General Family Medicine 12/29/23 Jere Sales MD [address] [address] Referring Gastroenterology 12/05/20 Calin Gotti DO [address] [place] [address] Internal Medicine 10/16/23 documented as of this encounter
--- OUTSIDE RECORDS SUMMARY | 2024-12-25 13:21 | XMS_ITS | Encounter Summary ---
Author Organization [facility] Address [address] [place] [address] Care Team Providers Care Income Tax Analyst Name Role Phone Jere Sales MD Unavailable [phone] Calin Gotti DO Unavailable [phone] Jose Antonio Meyers MD Primary Care Provider [phone] Source Comments In the event this information is protected by the Federal Confidentiality of Alcohol and Drug AbusePatient Records regulations: The Federal rules restrict any use of the information to criminally investigate or prosecute any alcohol or drug abuse patient.[facility] Encounter Details Date Type Department Care Team (Latest Contact Info) Description 01/07/2024 Transcribe Orders Respiratory [place] [address] [place] [address] Louise Douglas MD [address] [place], [place] [id number] Chronic bronchitis, unspecified chronic bronchitis type (HCC) (Primary Dx) Social History Tobacco Use Types Packs/Day Years Used Date Smoking Tobacco: Never Smokeless Tobacco: Never [facility] Utilities Answer Date Recorded In [...] Description 01/08/2025 1:00 PM EDT Appointment Radiology [address] [place] [address] [place] [address] XR CHEST 2V FRONTAL/LAT 01/11/2025 9:30 AM EDT Office Visit Pulmonary Medicine [address] [place] [address] Triston Riggs MD [address] [place] [address] 4-6 weeks 01/26/2025 1:00 PM EDT [place] [address] [place] [address] [place] [address] [place] [address] Follow-up 02/02/2025 9:30 AM EDT Hospital Encounter Angio [address] [place] [address] ASSISTANT HEAD CASHIER [address] [place] [address] Elevated alkaline phosphatase level [R74.8] 02/02/2025 9:30 AM EDT - 02/02/2025 11:20 AM EDT Surgery Angio [address] [place] [address] ASSISTANT HEAD CASHIER [address] [place] [address] TRANSCATHETER BIOPSY 05/21/2025 2:00 PM EST Office Visit Cardiology [address] [place] [address] [place] [address] [facility] [address] 6 month follow up Scheduled Procedures Name [...] noted slightly increased. Right-sided Pleurx catheter present. Gallery Or Museum Guide: [facility] Transcribe Date/Time: Mar 19 2024 4:42P [...] and soft tissues: Unremarkable. Procedure Note Provider, [facility] - 03/19/2024 * * *Final Report* * [...] noted slightly increased. Right-sided Pleurx catheter present. Gallery Or Museum Guide[facility] Transcribe Date/Time: Mar 19 2024 4:42P Dictated by : KALEY CHAMBERS MD This examination was interpreted and the report reviewed and electronically signed by: AKLEY CHAMBERS MD on Mar 19 2024 4:43PM EST Louise [place]-[facility] Final Result documented in this encounter Visit Diagnoses Diagnosis Chronic bronchitis, unspecified chronic bronchitis type (HCC)- Primary Chronic bronchitis, unspecified chronic bronchitis type (HCC) Elevated alkaline phosphatase level Other nonspecific abnormal serum enzyme levels documented in this encounter Care Teams Income Tax Analyst Relationship Specialty Start [place] [address] [place] [address] PCP - General Family Medicine 12/29/23 Jere Sales MD [address] [address] Referring Gastroenterology 12/05/20 Calin Gotti DO [address] [place] [address] Internal Medicine 10/16/23 documented as of this encounter
--- OUTSIDE RECORDS SUMMARY | 2024-12-25 13:21 | XMS_ITS | Encounter Summary ---
Author Organization [facility] Address [address] [place] [address] Care Team Providers Care Digital Field Service Technician Name Role Phone Jere Sales MD Unavailable [phone] Calin Gotti DO Unavailable [phone] Jose Antonio Meyers MD Primary Care Provider [phone] Source Comments In the event this information is protected by the Federal Confidentiality of Alcohol and Drug AbusePatient Records regulations: The Federal rules restrict any use of the information to criminally investigate or prosecute any alcohol or drug abuse patient.[facility] Encounter Details Date Type Department Care Team (Late st Contact Info) Description 02/10/2024 Get Medical Advice Thoracic Surgery [address] [place] [address] Cecilia Guadarrama APRN.ADVERTISING STRATEGIST [address] [place] [address] Willie Kimberly Social History Tobacco Use Types Packs/Day Years Used Date Smoking Tobacco: Never Smokeless Tobacco: Never Alcohol Use Standard Drinks/Week Comments Yes 0 (1 standard drink = 0.6 oz pure alcohol) socially, no drink since 06/2023 [facility] Utilities Answer Date Recorded In [...] is lower risk 5 12/11/2023 Data from: https://www.neighborhoodatlas.medicine.[facility].edu/. Last address used for calculation [address] [...] Description 01/08/2025 1:00 PM EDT Appointment Radiology [address] [place] [address] [place] [address] XR CHEST 2V FRONTAL/LAT 01/11/2025 9:30 AM EDT Office Visit Pulmonary Medicine [address] [place] [address] Triston Riggs MD [address] [place] [address] 4-6 weeks 01/26/2025 1:00 PM EDT [place] [address] [place], [place] [address] [place] [address] [place] [address] Follow-up 02/02/2025 9:30 AM EDT Hospital Encounter Angio [address] [place] [address] LEAD CLINICAL RESEARCH COORDINATOR [address] [place] [address] Elevated alkaline phosphatase level [R74.8] 02/02/2025 9:30 AM EDT - 02/02/2025 11:20 AM EDT Surgery Angio [address] [place] [address] LEAD CLINICAL RESEARCH COORDINATOR [address] [place] [address] TRANSCATHETER BIOPSY 05/21/2025 2:00 PM EST Office Visit Cardiology [address] [place] [address] [place] [address] [place] [address] 6 month follow up Scheduled Procedures Name Priority Associated Diagnoses Date/Ti in TRANSCATHETER BIOPSY Elevated alkaline phosphatase level 02/02/2025 9:30 AM EDT documented as of this encounter Goals Goal Patient Goal Type Associated Problems Recent Progress Patient-Stated? Author Blood Pressure < 130/80 Blood Pressure 120/74( 025 10:15 PM EDT) No Sung Hartley MD documented as of this encounter Visit Diagnoses Not on filedocumented in this encounter Care Teams Digital Field Service Technician Relationship Specialty Start [place] [address] [address] [address] PCP - General Family Medicine 12/29/23 Jere Sales MD [address] [address] Referring Gastroenterology 12/05/20 Calin Gotti DO [address] [place] [address] Internal Medicine 10/16/23 documented as of this encounter
--- OUTSIDE RECORDS SUMMARY | 2024-12-25 13:21 | XMS_ITS | Encounter Summary ---
Author Organization [facility] Address [address] [place] [address] Care Team Providers Care Stone Sawyer Name Role Phone Unavailable Primary Care Provider Unavailabl e Encounter Details Date Type Department Care Team (Late st Contact Info) Description 01/01/2023 Abstract [facility] [address] [place] [id number] Bianca Bynum MD [address] [place] [address] Social History Tobacco Use Types Packs/Day Years [...] NB OPHT [address] [place] [address] Arley Hamilton DO [address] [place] [address] 08/31/2025 1:05 PM EDT Office Visit [facility] [address] [place] [address] Bianca Bynum MD [address] [place] [address] documented as of this encounter Visit Diagnoses Not on filedocumented in this encounter
--- OUTSIDE RECORDS SUMMARY | 2024-12-25 13:21 | XMS_ITS | Encounter Summary ---
Author Organization [facility] Address [facility] [place] [address] Care Team Providers Care Circular Saw Edge Fuser Name Role Phone Jere Sales MD Unavailable [phone] Calin Gotti DO Unavailable [phone] Jose Antonio Meyers MD Primary Care Provider [phone] Source Comments In the event this information is protected by the Federal Confidentiality of Alcohol and Drug AbusePatient Records regulations: The Federal rules restrict any use of the information to criminally investigate or prosecute any alcohol or drug abuse patient.[facility] Encounter Details Date Type Department Care Team (Late st Contact Info) Description 09/21/2024 Get Medical Advice Pulmonary Medicine [address] [place] [address] Triston Riggs MD [address] [place] [address] Willie Harris 1950 Steroid Injections Social History Tobacco Use Types Packs/Day Years Used Date Smoking Tobacco: Never Smokeless Tobacco: Never Alcohol Use Standard Drinks/Week Comments Yes 0 (1 standard drink = 0.6 oz pure alcohol) socially, no drink since 06/2023 [facility] Utilities Answer Date Recorded In the [...] lower risk 5 12/11/2023 Data from: https://www.neighborhoodatlas.medicine.[facility].edu/. Last address used for calculation 2230 12/11/2023 [...] Description 01/08/2025 1:00 PM EDT Appointment Radiology [address] [place] [address] [place] [address] XR CHEST 2V FRONTAL/LAT 01/11/2025 9:30 AM EDT Office Visit Pulmonary Medicine [address] [place] [address] Triston Riggs MD [address] [place] [address] 4-6 weeks 01/26/2025 1:00 PM EDT [place] [address] [place] [address] [place] [address] [place] [address] Follow-up 02/02/2025 9:30 AM EDT Hospital Encounter Angio [address] [place] [address] PATROL CAPTAIN [address] [place] [address] Elevated alkaline phosphatase level [R74.8] 02/02/2025 9:30 AM EDT - 02/02/2025 11:20 AM EDT Surgery Angio [address] [place] [address] PATROL CAPTAIN [address] [place] [address] TRANSCATHETER BIOPSY 05/21/2025 2:00 PM EST Office Visit Cardiology [address] [place] [address] [place] [address] [facility] [place] [address] 6 month follow up Scheduled Procedures Name Priority Associated Diagnoses Date/Ti ma TRANSCATHETER BIOPSY Elevated alkaline phosphatase level 02/02/2025 9:30 AM EDT documented as of this encounter Goals Goal Patient Goal Type Associated Problems Recent Progress Patient-Stated? Author Blood Pressure < 130/80 Blood Pressure 120/74( 025 10:15 PM EDT) No Sung Hartley MD documented as of this encounter Visit Diagnoses Not on filedocumented in this encounter Care Teams Circular Saw Edge Fuser Relationship Specialty Start [place] [address] [facility] [address] [facility] [address] PCP - General Family Medicine 12/29/23 Jere Sales MD [address] [address] Referring Gastroenterology 12/05/20 Calin Gotti DO [address] [place] [address] Internal Medicine 10/16/23 documented as of this encounter
--- OUTSIDE RECORDS SUMMARY | 2024-12-25 13:21 | XMS_ITS | Clinical Summary ---
Author Organization [facility] Address [address] [place] [address] Care Team Providers Care Wine Steward Name Role Phone Dawit Lorenz DO Primary Care Provider [phone] Dawit Lorenz DO Unavailable [phone] Karthik Calloway MD Unavailable Unavail able Allergies [...] every morning . Active vit A-vit C-vit Q-srgm-jijqqq 7,160-113-100 irfw-iy-xoym Tab Take 1 tablet by mouth every [...] for , 07/05/16 @ 130pm at our [facility] office. S/P total knee arthroplasty 06/25/2016 Osteoarthritis [...] season) 2024 05/10/2021, 09/13/2020, 08/22/2020 Influenza Vaccine (#1) 2025 05/09/2020, 2019 Respiratory Syncytial Virus Immunization: Risk, 60-74 Risk, or 75+ (1 - 1-dose 75+ series) 2026 Tetanus: Every 10yrs 08/30/2028 08/30/2018, 06/04/20 18 Pneumococcal Vaccine: Age 50+ Completed 02/03/2018, 11/26/2016 Medical Devices Implanted Type Area Brand Development Manager Device Identifier Shelf Expiration Date Model / Serial / Lot Cement 1 X 40 [place] Bone Single - [id number] Implanted:Qty: 2 on 08/23/2014 by Karthik Calloway MD at [facility] [place] Cement Left: Knee Anh 01/14/2019 00-1112-140 -01 / / [id number] Stem Short Cemented Persona - [id number] Implanted:Qty: 1 on 08/23/2014 by Karthik Calloway MD at [facility] [place] ANH HAK 09/23/2017 42-5570-001 -14 / / [id number] Stem Sz F Tib 5deg Nonpor Lt Persona - [id number] Implanted:Qty: 1 on 08/23/2014 by Karthik Calloway MD at [facility] [place] ANH HAK 03/25/2024 42-5320-075 -01 / / [id number] Femoral Sz9 Lt Nrw Ps Cmt Ccr Persona - [id number] Implanted:Qty: 1 on 08/23/2014 by Karthik Calloway MD at [facility] ANH HAK 12/23/2022 42-5000-066 -01 / / [id number] Patella 32mm All Poly Persona - [id number] Implanted:Qty: 1 on 08/23/2014 [facility] 02/23/2022 42-5400-000 -32 / / [id number] Articular Surf Ef 6-9 14mm Lt Ps Vivacit-E Persona - [id number] Implanted:Qty: 1 on 08/23/2014 [facility] 09/23/2017 42-5124-007 -14 / / [id number] Simplex Hv With Gentamicin Cement Implanted:Qty: 2 on 06/25/2016 by Karthik Calloway MD at [facility] Right: Knee [employer] 01/14/2018 6195-1-001 / / [id number] Stem Sz F Tib 5deg Nonpor Rt Persona - [id number] Implanted:Qty: 1 on 06/25/2016 by Karthik Calloway MD at [facility] Right: Knee ANH K 05/16/2026 42-5320-075 -02 / / [id number] Femoral Sz9 Rt Nrw Ps Cmt Ccr Persona - [id number] Implanted:Qty: 1 on 06/25/2016 by Karthik Calloway MD at [facility] Right: Knee ANH K 02/14/2026 42-5000-066 -02 / / [id number] Stem Short Cemented Persona - [id number] Implanted:Qty: 1 on 06/25/2016 by Karthik Calloway MD at [facility] Right: Knee ANH HAK 06/16/2026 42-5570-001 -14 / / [id number] Patella 32mm All Poly Vivacit-E - [id number] Implanted:Qty: 1 on 06/25/2016 by Karthik Calloway MD at [facility] Right: Knee ANH HAK 04/16/2021 42-5402-000 -32 / / [id number] Articular Surf 14mm 6-9ef Rt Cps Ve Persona - [id number] Implanted:Qty: 1 on 06/25/2016 by Karthik Calloway MD at [facility] Right: Knee ANH HAK 12/14/2020 42-5226-007 -14 / / [id number] Explanted Type Area Brand Development Manager Device Identifier Shelf Expiration Date Model / Serial / Lot Headed Screw Explanted:Qty: 4 on 08/23/2014 by Karthik Calloway MD at [facility] Left: Knee Anh 08/14/2024 5791-41 / / [id number] 2.5mm Female Hex Screw Explanted:Qty: 1 on 08/23/2014 by Karthik Calloway MD at [facility] Left: Knee Anh 06/16/2024 42-5099-025 -25 / / [id number] Headed Screw Explanted:Qty: 1 on 08/23/2014 by Karthik Calloway MD at [facility] Left: Knee Anh 07/17/2024 / / Insurance [employer] MEDICARE PLAN (PPO) Advance Directives For more information, please contact: [phone] * Full Code (Latest Code Status on File) Date Activated Date Inactivated Comments 06/25/2016 1:54 PM 06/29/2016 3:41 PM * Full Code Date Activated Date Inactivated Comments 08/23/2014 6:45 AM 08/25/2014 7:58 PM Care Teams Wine Steward Relationship Specialty Start Date End Date Dawit Lorenz DO [address] [place] [address] PCP - General Internal Medicine 06/29/14 Dawit Lorenz DO [address] [place] [address] Internal Medicine 06/29/14 Karthik Calloway MD [address] [place] [address] Consulting Physician Orthopedic Surgery 01/28/17
--- OUTSIDE RECORDS SUMMARY | 2024-12-25 13:21 | XMS_ITS | Encounter Summary ---
Author Organization [facility] Address [facility]0 [place] [address] Care Team Providers Care Auto Body Builder Apprentice Name Role Phone Jere Sales MD Unavailable [phone] Calin Gotti DO Unavailable [phone] Jose Antonio Meyers MD Primary Care Provider [phone] Source Comments In the event this information is protected by the Federal Confidentiality of Alcohol and Drug AbusePatient Records regulations: The Federal rules restrict any use of the information to criminally investigate or prosecute any alcohol or drug abuse patient.[facility] Encounter Details Date Type Department Care Team (Late st Contact Info) Description 01/20/2024 Get Medical Advice Thoracic Surgery [address] [place] [address] Cecilia Guadarrama APRN.COPYWRITING INTERN [address] [place] [address] Willie Harris Appt Feb 04, 2024 Social History Tobacco Use Types Packs/Day Years Used Date Smoking Tobacco: Never Smokeless Tobacco: Never Alcohol Use Standard Drinks/Week Comments Yes 0 (1 standard drink = 0.6 oz pure alcohol) socially, no drink since 06/2023 [facility] Utilities Answer Date Recorded In [...] Description 01/08/2025 1:00 PM EDT Appointment Radiology [address] [place] [address] [place] [address] XR CHEST 2V FRONTAL/LAT 01/11/2025 9:30 AM EDT Office Visit Pulmonary Medicine [address] [place] [address] Triston Riggs MD [address] [place] [address] 4-6 weeks 01/26/2025 1:00 PM EDT [place] [address] [place], [place] [address] [place] [address] [place] [address] Follow-up 02/02/2025 9:30 AM EDT Hospital Encounter Angio [address] [place] [address] STUDIO HAND [address] [place] [address] Elevated alkaline phosphatase level [R74.8] 02/02/2025 9:30 AM EDT - 02/02/2025 11:20 AM EDT Surgery Angio [address] [place] [address] STUDIO HAND [address] [place] [address] TRANSCATHETER BIOPSY 05/21/2025 2:00 PM EST Office Visit Cardiology [address] [place] [address] [place] [address] [facility] [place] [address] 6 month follow up Scheduled Procedures Name Priority Associated Diagnoses Date/Ti ks TRANSCATHETER BIOPSY Elevated alkaline phosphatase level 02/02/2025 9:30 AM EDT documented as of this encounter Goals Goal Patient Goal Type Associated Problems Recent Progress Patient-Stated? Author Blood Pressure < 130/80 Blood Pressure 120/74( 025 10:15 PM EDT) No Sung Hartley MD documented as of this encounter Visit Diagnoses Not on filedocumented in this encounter Care Teams Auto Body Builder Apprentice Relationship Specialty Start [place] [address] [facility] [place] [address] PCP - General Family Medicine 12/29/23 Jere Sales MD [address] [address] Referring Gastroenterology 12/05/20 Calin Gotti DO [address] [place] [address] Internal Medicine 10/16/23 documented as of this encounter
--- OUTSIDE RECORDS SUMMARY | 2024-12-25 13:21 | XMS_ITS | Encounter Summary ---
Author Organization [facility] Address [address] [place] [address] Care Team Providers Care Recycling Director Name Role Phone Jere Sales MD Unavailable [phone] Calin Gotti DO Unavailable [phone] Jose Antonio Meyers MD Primary Care Provider [phone] Source Comments In the event this information is protected by the Federal Confidentiality of Alcohol and Drug AbusePatient Records regulations: The Federal rules restrict any use of the information to criminally investigate or prosecute any alcohol or drug abuse patient.[facility] Encounter Details Date Type Department Care Team (Late st Contact Info) Description 12/23/2024 Get Medical Advice Gastroenterology [address] [id number] Araseli Wall APRN.HOME WEATHERIZING WORKER [address] [place] [address] Willie Harris 1950 Social History [...] is lower risk 5 12/11/2023 Data from: https://www.neighborhoodatlas.medicine.[facility].edu/. Last address used for calculation [...] Description 01/08/2025 1:00 PM EDT Appointment Radiology [address] [place] [address] [place] [address] XR CHEST 2V FRONTAL/LAT 01/11/2025 9:30 AM EDT Office Visit Pulmonary Medicine [address] [place] [address] Triston Riggs MD [address] [place] [address] 4-6 weeks 01/26/2025 1:00 PM EDT [place] [address] [place] [address] [place] [address] [place] [address] Follow-up 02/02/2025 9:30 AM EDT Hospital Encounter Angio [address] [place] [address] OIL TESTER [address] [place] [address] Elevated alkaline phosphatase level [R74.8] 02/02/2025 9:30 AM EDT - 02/02/2025 11:20 AM EDT Surgery Angio [address] [place] [address] OIL TESTER [address] [place] [address] TRANSCATHETER BIOPSY 05/21/2025 2:00 PM EST Office Visit Cardiology [address] [place] [address] [place] [address] [place] [address] 6 month follow up Scheduled Procedures Name Priority Associated Diagnoses Date/Ti la TRANSCATHETER BIOPSY Elevated alkaline phosphatase level 02/02/2025 9:30 AM EDT documented as of this encounter Goals Goal Patient Goal Type Associated Problems Recent Progress Patient-Stated? Author Blood Pressure < 130/80 Blood Pressure 120/74( 025 10:15 PM EDT) No Sung Hartley MD documented as of this encounter Visit Diagnoses Not on filedocumented in this encounter Care Teams Recycling Director Relationship Specialty Start [place] [address] [facility] [place] [address] PCP - General Family Medicine 12/29/23 Jere Sales MD [address] [address] Referring Gastroenterology 12/05/20 Calin Gotti DO [address] [place] [address] Internal Medicine 10/16/23 documented as of this encounter
--- OUTSIDE RECORDS SUMMARY | 2024-12-25 13:21 | XMS_ITS | Encounter Summary ---
Author Organization [facility] Address [address] [place] [address] Care Team Providers Care Material Distributor Name Role Phone Jere Sales MD Unavailable [phone] Calin Gotti DO Unavailable [phone] Jose Antonio Meyers MD Primary Care Provider [phone] Source Comments In the event this information is protected by the Federal Confidentiality of Alcohol and Drug AbusePatient Records regulations: The Federal rules restrict any use of the information to criminally investigate or prosecute any alcohol or drug abuse patient.[facility] Encounter Details Date Type Department Care Team (Late st Contact Info) Description 09/18/2024 Patient Msg Gastroenterology [address] [address] Provider, [facility] Procedure Instructions for EGD scheduled on 09/25 Social History Tobacco Use Types Packs/Day Years Used Date Smoking Tobacco: Never Smokeless Tobacco: Never Alcohol Use Standard Drinks/Week Comments Yes 0 (1 standard drink = 0.6 oz pure alcohol) socially, no drink since 06/2023 [facility] Utilities Answer Date Recorded In [...] place to sleep or slept in a alf (including now)? No 11/21/2023 Area Deprivation Index Answer Date Hari rded National Score (1-100), lower number is lower ri sk 68 12/11/2023 State Score (1-10), lower number is lower risk 5 12/11/2023 Data from: https://www.neighborhoodatlas.medicine.[facility].edu/. Last address used for calculation [...] Description 01/08/2025 1:00 PM EDT Appointment Radiology [address] [place] [address] [place] [address] XR CHEST 2V FRONTAL/LAT 01/11/2025 9:30 AM EDT Office Visit Pulmonary Medicine [address] [place] [address] Triston Riggs MD [address] [place] [address] 4-6 weeks 01/26/2025 1:00 PM EDT [place] [address] [place] [address] [place] [address] [place] [address] Follow-up 02/02/2025 9:30 AM EDT Hospital Encounter Angio [address] [place] [address] PUMP ASSEMBLER [address] [place] [address] Elevated alkaline phosphatase level [R74.8] 02/02/2025 9:30 AM EDT - 02/02/2025 11:20 AM EDT Surgery Angio [address] [place] [address] PUMP ASSEMBLER [address] [place] [address] TRANSCATHETER BIOPSY 05/21/2025 2:00 PM EST Office Visit Cardiology [address] [place] [address] [place] [address] [facility] [place] [address] 6 month follow up Scheduled Procedures Name [...] on filedocumented in this encounter Care Teams Material Distributor Relationship Specialty Start [place] [address] [place] [address] PCP - General Family Medicine 12/29/23 Jree Sales MD [address] [address] Referring Gastroenterology 12/05/20 Calin Gotti DO [address] [place] [address] Internal Medicine 10/16/23 documented as of this encounter
--- OUTSIDE RECORDS SUMMARY | 2024-12-25 13:21 | XMS_ITS | Clinical Summary ---
Author Organization [facility] Address [address] [place] [address] Care Team Providers Care Ticket Agent Name Role Phone Unavailable Primary Care Provider [...] NB OPHT [address] [place] [address] Arley Hamilton DO [address] [place] [address] 08/31/2025 1:05 PM EDT Office Visit [facility] [address] [place] [address] Bianca Bynum MD [address] [place] [address] Health Maintenance Due Date Last Done Comments CT Colonography 1950 FIT-DNA 1950 FIT 1950 FOBT 1950 Sigmoidoscopy 1950 Influenza Vaccine (#1) 2025 05/27/2024, 2019 Colonoscopy 04/28/2034 04/28/2024, 04/28/2024 Colorectal Cancer Screening 04/28/2034 Pneumococcal Vaccine: 65+ Years Completed 8, 11/26/[address] [place] [address] [employer] MED[employer]ARE ADVANTAGE
--- OUTSIDE RECORDS SUMMARY | 2024-12-25 13:21 | XMS_ITS | Encounter Summary ---
Author Organization [facility] Address [address] [place] [address] Care Team Providers Care Nurse Transitional Name Role Phone Jere Sales MD Unavailable [phone] Calin Gotti DO Unavailable [phone] Jose Antonio Meyers MD Primary Care Provider [phone] Source Comments In the event this information is protected by the Federal Confidentiality of Alcohol and Drug AbusePatient Records regulations: The Federal rules restrict any use of the information to criminally investigate or prosecute any alcohol or drug abuse patient.[facility] Encounter Details Date Type Department Care Team (Latest Contact Info) Description 12/17/2024 Travel Social History Tobacco Use Types Packs/Day [...] risk 5 12/11/2023 Data from: https://www.neighborhoodatlas.medicine.[facility].edu/. Last address used for calculation 2230 12/11/2023 [...] Description 01/08/2025 1:00 PM EDT Appointment Radiology [address] [place] [address] [place] [address] XR CHEST 2V FRONTAL/LAT 01/11/2025 9:30 AM EDT Office Visit Pulmonary Medicine [address] [place] [address] Triston Riggs MD [address] [place] [address] 4-6 weeks 01/26/2025 1:00 PM EDT [place] [address] [place] [address] [place] [address] [place] [address] Follow-up 02/02/2025 9:30 AM EDT Hospital Encounter Angio [address] [place] [address] RELIABILITY TECHNOLOGIST [address] [facility] [place] [address] Elevated alkaline phosphatase level [R74.8] 02/02/2025 9:30 AM EDT - 02/02/2025 11:20 AM EDT Surgery Angio [address] [place] [address] RELIABILITY TECHNOLOGIST [address] [place] [address] TRANSCATHETER BIOPSY 05/21/2025 2:00 PM EST Office Visit Cardiology [address] [facility] [place] [address] [place] [address] [place] [address] 6 month follow up Scheduled Procedures Name [...] on filedocumented in this encounter Care Teams Nurse Transitional Relationship Specialty [place] [address] [place] [address] PCP - General Family Medicine 12/29/23 Jere Sales MD [address] [address] Referring Gastroenterology 12/05/20 Calin Gotti DO [address] [place] [address] Internal Medicine 10/16/23 documented as of this encounter
--- OUTSIDE RECORDS SUMMARY | 2024-12-25 13:21 | XMS_ITS | Encounter Summary ---
Author Organization [facility] Address [facility] [place] [address] Care Team Providers Care Department Secretary Name Role Phone Jere Sales MD Unavailable [phone] Calin Gotti DO Unavailable [phone] Jose Antonio Meyers MD Primary Care Provider [phone] Source Comments In the event this information is protected by the Federal Confidentiality of Alcohol and Drug AbusePatient Records regulations: The Federal rules restrict any use of the information to criminally investigate or prosecute any alcohol or drug abuse patient.[facility] Encounter Details Date Type Department Care Team (Late st Contact Info) Description 08/28/2024 Get Medical Advice Pulmonary Medicine [address] [place] [address] Triston Riggs MD [address] [place] [address] Willie Harris. 1950 Social History Tobacco Use Types Packs/Day Years Used Date Smoking Tobacco: Never Smokeless Tobacco: Never Alcohol Use Standard Drinks/Week Comments Yes 0 (1 standard drink = 0.6 oz pure alcohol) socially, no drink since 06/2023 [facility] Utilities Answer Date Recorded [...] 09/01/2024 11:36 AM EDT Patient called regarding Adaptive Computingt message below. She expressed that she has not heard anything back yet. documented in this encounter Plan of Treatment Upcoming Encounters Date Type Department Care Team (Latest Contact Info) Description 01/08/2025 1:00 PM EDT Appointment Radiology [address] [place] [address] [place] [address] XR CHEST 2V FRONTAL/LAT 01/11/2025 9:30 AM EDT Office Visit Pulmonary Medicine [address] [place] [address] Triston Riggs MD [address] [place] [address] 4-6 weeks 01/26/2025 1:00 PM EDT [place] [address] [address] [place] [address] [place] [address] [address] [place] [address] Follow-up 02/02/2025 9:30 AM EDT Hospital Encounter Angio [address] [place] [address] DEVELOPER EVANGELIST [address] [place] [address] Elevated alkaline phosphatase level [R74.8] 02/02/2025 9:30 AM EDT - 02/02/2025 11:20 AM EDT Surgery Angio [address] [facility] [place] [address] DEVELOPER EVANGELIST [address] [place] [address] TRANSCATHETER BIOPSY 05/21/2025 2:00 PM EST Office Visit Cardiology [address] [place] [address] [place] [address] [facility] [place] [address] 6 month follow up Scheduled Procedures Name [...] on filedocumented in this encounter Care Teams Department Secretary Relationship Specialty Start [place] [address] [address] [place] [address] PCP - General Family Medicine 12/29/23 Jere Sales MD [address] [address] Referring Gastroenterology 12/05/20 Calin Gotti DO [address] [place] [address] Internal Medicine 10/16/23 documented as of this encounter
--- OUTSIDE RECORDS SUMMARY | 2024-12-25 13:21 | XMS_ITS | Encounter Summary ---
Author Organization [facility] Address [address] [place] [address] Care Team Providers Care Punch Press Operator Name Role Phone Jere Sales MD Unavailable [phone] Calin Gotti DO Unavailable [phone] Jose Antonio Meyers MD Primary Care Provider [phone] Source Comments In the event this information is protected by the Federal Confidentiality of Alcohol and Drug AbusePatient Records regulations: The Federal rules restrict any use of the information to criminally investigate or prosecute any alcohol or drug abuse patient.[facility] Encounter Details Date Type Department Care Team (Late st Contact Info) Description 02/10/2024 Get Medical Advice Thoracic Surgery [address] [place] [address] Cecilia Guadarrama APRN.CONVEYOR TENDER [address] [place] [address] Rectifier Operator/Goldie lar Appt Social History Tobacco Use Types Packs/Day Years Used Date Smoking Tobacco: Never Smokeless Tobacco: Never Alcohol Use Standard Drinks/Week Comments Yes 0 (1 standard drink = 0.6 oz pure alcohol) socially, no drink since 06/2023 [facility] [place] Utilities Answer Date Recorded In the past [...] Data from: https://www.neighborhoodatlas.medicine.[facility].edu/. Last address used for calculation [...] Description 01/08/2025 1:00 PM EDT Appointment Radiology [address] [place] [address] [place] [address] XR CHEST 2V FRONTAL/LAT 01/11/2025 9:30 AM EDT Office Visit Pulmonary Medicine [address] [place] [address] Triston Riggs MD [address] [place] [address] 4-6 weeks 01/26/2025 1:00 PM EDT [place] [address] [place] [address] [place] [address] [place] [address] Follow-up 02/02/2025 9:30 AM EDT Hospital Encounter Angio [address] [place] [address] CAR FRAMER [address] [place] [address] Elevated alkaline phosphatase level [R74.8] 02/02/2025 9:30 AM EDT - 02/02/2025 11:20 AM EDT Surgery Angio [address] [place] [address] CAR FRAMER [address] [place] [address] TRANSCATHETER BIOPSY 05/21/2025 2:00 PM EST Office Visit Cardiology [address] [place] [address] [place] [address] [facility] [place] [address] 6 month follow up Scheduled Procedures Name Priority Associated Diagnoses Date/Ti tn TRANSCATHETER BIOPSY Elevated alkaline phosphatase level 02/02/2025 9:30 AM EDT documented as of this encounter Goals Goal Patient Goal Type Associated Problems Recent Progress Patient-Stated? Author Blood Pressure < 130/80 Blood Pressure 120/74( 025 10:15 PM EDT) No Sung Hartley MD documented as of this encounter Visit Diagnoses Not on filedocumented in this encounter Care Teams Punch Press Operator Relationship Specialty Start [place] [address] [facility] [place] [address] PCP - General Family Medicine 12/29/23 Jere Sales MD [address] [address] Referring Gastroenterology 12/05/20 Calin Gotti DO [address] [place] [address] Internal Medicine 10/16/23 documented as of this encounter
--- OUTSIDE RECORDS SUMMARY | 2024-12-25 13:21 | XMS_ITS | Clinical Summary ---
Author Organization [facility] Address [id number] [address] [place] [address] Care Team Providers Care Tariff Publishing Agent Name Role Phone Unavailable Primary Care [...]
--- OUTSIDE RECORDS SUMMARY | 2024-12-25 13:22 | XMS_ITS | Encounter Summary ---
Author Organization [facility] Address [address] [place] [address] Care Team Providers Care Adz Worker Name Role Phone Jere Sales MD Unavailable [phone] Calin Gotti DO Unavailable [phone] Jose Antonio Meyers MD Primary Care Provider [phone] Source Comments In the event this information is protected by the Federal Confidentiality of Alcohol and Drug AbusePatient Records regulations: The Federal rules restrict any use of the information to criminally investigate or prosecute any alcohol or drug abuse patient.[facility] Encounter Details Date Type Department Care Team (Late st Contact Info) Description 07/07/2024 Get Medical Advice Gastroenterology [address] [id number] Sue Terrell MD [address] [place] [address] Willie Kimberly Social History Tobacco Use Types Packs/Day Years Used Date Smoking Tobacco: Never Smokeless Tobacco: Never Alcohol Use Standard Drinks/Week Comments Yes 0 (1 standard drink = 0.6 oz pure alcohol) socially, no drink since 06/2023 [facility] Utilities Answer Date Recorded In the [...] place to sleep or slept in a retirement (including now)? No 11/21/2023 Area Deprivation Index [...] Description 01/08/2025 1:00 PM EDT Appointment Radiology [address] [place] [address] [place] [address] XR CHEST 2V FRONTAL/LAT 01/11/2025 9:30 AM EDT Office Visit Pulmonary Medicine [address] [place] [address] Triston Riggs MD [address] [place] [address] 4-6 weeks 01/26/2025 1:00 PM EDT [place] [address] [place] [address] [place] [address] [place] [address] Follow-up 02/02/2025 9:30 AM EDT Hospital Encounter Angio [address] [place] [address] FLEET MAINTENANCE MANAGER [address] [place] [address] Elevated alkaline phosphatase level [R74.8] 02/02/2025 9:30 AM EDT - 02/02/2025 11:20 AM EDT Surgery Angio [address] [place] [address] FLEET MAINTENANCE MANAGER [address] [place] [address] TRANSCATHETER BIOPSY 05/21/2025 2:00 PM EST Office Visit Cardiology [address] [place] [address] [place] [address] [facility] [place] [address] 6 month follow up Scheduled Procedures Name Priority Associated Diagnoses Date/Ti or TRANSCATHETER BIOPSY Elevated alkaline phosphatase level 02/02/2025 9:30 AM EDT documented as of this encounter Goals Goal Patient Goal Type Associated Problems Recent Progress Patient-Stated? Author Blood Pressure < 130/80 Blood Pressure 120/74( 025 10:15 PM EDT) No Sung Hartley MD documented as of this encounter Visit Diagnoses Not on filedocumented in this encounter Care Teams Adz Worker Relationship Specialty Start [place] [address] [address] [address] PCP - General Family Medicine 12/29/23 Jere Slaes MD [address] [address] Referring Gastroenterology 12/05/20 Calin Gotti DO [address] [place] [address] Internal Medicine 10/16/23 documented as of this encounter
--- OUTSIDE RECORDS SUMMARY | 2024-12-25 13:22 | XMS_ITS | Patient Health Record ---
Author Organization [facility] in [place] Address [address] [place] [address] Care Team Providers Care Stave Planer Tender Name Role Phone Dawit Lorenz DO Primary Care Provider Tasneem fernandez Shila Gottihan Unavailable [phone] Allergies Allergen (clinical drug ingredient) Drug/Non Drug [...] nts Arexvy Unknown 05/27/2024 Administered Flu, Fluad (67138) 65 yrs + High Dose Seasonal (4677-5147) Unknown 05/27/2024 Administered Flu, Fluad (78361) 66 yrs + Trivalent (2379-4864) Unknown 05/09/2020 Administered Pneumococcal (Pneumovax 23) Unknown [...] Risk Notes Problem Erythrocyte sedimentation rate raised (406607158) Elevated erythrocyte sedimentation rate (R70.0) Active confirmed Problem Hyperlipidemia (06952253) Hyperlipidemia (E78.5) Active confirmed Problem Coronary artery disease (25290672) CAD (coronary artery disease) (I25.10) Active confirmed Problem Pleural effusion (29953794) Pleural effusion (J90) Active confirmed Problem Multiple pulmonary nodules (090757321) Multiple pulmonary nodules (R91.8) Active confirmed Problem Calcified lymph nodes (186988284) Calcified lymph nodes (I89.8) Active confirmed Problem Pericardial effusion (625658022) Pericardial effusion (I31.39) Active confirmed Vital Signs Heart Rate 83 /min 07/21/2024 Temperature 97.0 degrees Fahrenheit 07/21/2024 Respiratory Rate 18 /min 07/21/2024 Oximetry 96.8 % 07/21/2024 Blood pressure diastolic 73 mm Hg 07/21/2024 Height 72 in 07/21/2024 Blood pressure systolic 113 mm Hg 07/21/2024 Weight 196.4 lbs 07/21/2024 BMI 26.63 kg/m2 07/21/2024 Encounters Encounter Location Date Provider Diagnosis Pulmonary Medicine [place] [address] [place] [address] 01/15/2024 Calin Gotti Chronic cough R05.3 ; Pleural effusion J90 ; Multiple pulmonary nodules R91.8 ; Pericardial effusion I31.39 ; Elevated erythrocyte sedimentation rate R70.0 and Calcified lymph nodes I89.8 [facility] [place] [address] [place] [address] 07/21/2024 Calin Gotti Pleural effusion J90 Pul[facility] [place] [address] [place] [address] 01/20/2024 Calin Gotti Assessments Encounter Date Diagnosis [...] drained Saturday. He has seen rheumatology at [facility] and they have not been able to determine a cause. Cytology/patholog y have returned negative for malignancy. I am not of much assistance here at [facility] given our small size. Other thought would be infectious disease. Could also consider checking cytology yet again, but if this really were malignant, overall yield with repeated thoracenteses only approaches roughly 70% of the time for positive diagnosis of malignant effusion. I suggest patient follow-up with [facility] pulmonary for second opinion. Patient states [...] to offer would be referral to [facility] in [place], [place] for a third opinion. At this [...] Coverage End Date [employer] [address] [place], [place] [id number] Bryan Harris Self - patient is the [...]
--- OUTSIDE RECORDS SUMMARY | 2024-12-25 13:22 | XMS_ITS | Encounter Summary ---
Author Organization [facility] Address [address] [place] [address] Care Team Providers Care Patient Support Tech Name Role Phone Jere Sales MD Unavailable [phone] Calin Gotti DO Unavailable [phone] Jose Antonio Meyers MD Primary Care Provider [phone] Source Comments In the event this information is protected by the Federal Confidentiality of Alcohol and Drug AbusePatient Records regulations: The Federal rules restrict any use of the information to criminally investigate or prosecute any alcohol or drug abuse patient.[facility] Reason for Visit * Reason Comments Radiology XR Encounter Details Date Type Department Care Team (Late st Contact Info) Description 08/13/2024 Radiology Radiology [address] [place], [place] [id number] Joan Hillman, RT(R) Radiology XR Social History Tobacco Use Types Packs/Day Years Used Date Smoking Tobacco: Never Smokeless Tobacco: Never Alcohol Use Standard Drinks/Week Comments Yes 0 (1 standard drink = 0.6 oz pure alcohol) socially, no drink since 06/2023 [facility] Utilities Answer Date Recorded In [...] is lower risk 5 12/11/2023 Data from: https://www.neighborhoodatlas.medicine.[facility].edu/. Last address used for calculation [address] [...] PATIENT PRESENTS WITH AN IMPLANTABLE OR ATTACHED BARKER PEELER: No RADIOLOGY DEPARTMENT: General X-ray: Exam(s) Completed: Chest X-Ray PERIPHERAL IV DATA: Not applicable SIGNED BY: RT Gaviota(R) August 13, 2024 9:43 AM documented in this encounter Plan of Treatment Upcoming Encounters Date Type Department Care Team (Latest Contact Info) Description 01/08/2025 1:00 PM EDT Appointment Radiology [address] [place] [address] [place] [address] XR CHEST 2V FRONTAL/LAT 01/11/2025 9:30 AM EDT Office Visit Pulmonary Medicine [address] [place] [address] Triston Riggs MD [address] [place] [address] 4-6 weeks 01/26/2025 1:00 PM EDT [place] [address] [facility] [place] [address] [place] [address] [place] [address] Follow-up 02/02/2025 9:30 AM EDT Hospital Encounter Angio [address] [place] [address] PLSQL DEVELOPER [address] [place] [address] Elevated alkaline phosphatase level [R74.8] 02/02/2025 9:30 AM EDT - 02/02/2025 11:20 AM EDT Surgery Angio [address] [place] [address] PLSQL DEVELOPER [address] [place] [address] TRANSCATHETER BIOPSY 05/21/2025 2:00 PM EST Office Visit Cardiology [address] [place] [address] [place] [address] [facility] [place] [address] 6 month follow up Scheduled Procedures Name [...] filedocumented in this encounter Care Teams Patient Support Tech Relationship Specialty Start [place] [address] [place] [address] PCP - General Family Medicine 12/29/23 Jere Sales MD [address] [address] Referring Gastroenterology 12/05/20 Calin Gotti DO [address] [place] [address] Internal Medicine 10/16/23 documented as of this encounter
--- OUTSIDE RECORDS SUMMARY | 2024-12-25 13:22 | XMS_ITS | Encounter Summary ---
Author Organization [facility] Address [address] [place] [address] Care Team Providers Care Quantitative Software Engineer Name Role Phone Jere Sales MD Unavailable [phone] Calin Gotti DO Unavailable [phone] Jose Antonio Meyers MD Primary Care Provider [phone] Source Comments In the event this information is protected by the Federal Confidentiality of Alcohol and Drug AbusePatient Records regulations: The Federal rules restrict any use of the information to criminally investigate or prosecute any alcohol or drug abuse patient.[facility] Encounter Details Date Type Department Care Team (Late st Contact Info) Description 11/24/2024 Results Follow-Up Cardiology [address] [facility] [place] [address] [place] [address] [facility]. [place], [place] [id number] Social History Tobacco Use Types Packs/Day Years [...] Description 01/08/2025 1:00 PM EDT Appointment Radiology [address] [place] [address] [place] [address] XR CHEST 2V FRONTAL/LAT 01/11/2025 9:30 AM EDT Office Visit Pulmonary Medicine [address] [place] [address] Triston Riggs MD [address] [place] [address] 4-6 weeks 01/26/2025 1:00 PM EDT [place] [address] [place], [place] [address] [place] [address] [place] [address] Follow-up 02/02/2025 9:30 AM EDT Hospital Encounter Angio [address] [place] [address] CARD HANGER [address] [place] [address] Elevated alkaline phosphatase level [R74.8] 02/02/2025 9:30 AM EDT - 02/02/2025 11:20 AM EDT Surgery Angio [address] [place] [address] CARD HANGER [address] [place] [address] TRANSCATHETER BIOPSY 05/21/2025 2:00 PM EST Office Visit Cardiology [address] [place] [address] [place] [address] [facility] [place] [address] 6 month follow up Scheduled Procedures Name Priority Associated Diagnoses Date/Ti wi TRANSCATHETER BIOPSY Elevated alkaline phosphatase level 02/02/2025 9:30 AM EDT documented as of this encounter Goals Goal Patient Goal Type Associated Problems Recent Progress Patient-Stated? Author Blood Pressure < 130/80 Blood Pressure 120/74( 025 10:15 PM EDT) No Sung Hartley MD documented as of this encounter Visit Diagnoses Not on filedocumented in this encounter Care Teams Quantitative Software Engineer Relationship Specialty Start [place] [address] [address] [place] [address] PCP - General Family Medicine 12/29/23 Jere Sales MD [address] [address] Referring Gastroenterology 12/05/20 Calin Gotti DO [address] [place] [address] Internal Medicine 10/16/23 documented as of this encounter
--- OUTSIDE RECORDS SUMMARY | 2024-12-25 13:23 | XMS_ITS | Encounter Summary ---
Author Organization [facility] Address [address] [place] [address] Care Team Providers Care Importer Or Exporter Name Role Phone Jere Sales MD Unavailable [phone] Calin Gotti DO Unavailable [phone] Jose Antonio Meyers MD Primary Care Provider [phone] Source Comments In the event this information is protected by the Federal Confidentiality of Alcohol and Drug AbusePatient Records regulations: The Federal rules restrict any use of the information to criminally investigate or prosecute any alcohol or drug abuse patient.[facility] Encounter Details Date Type Department Care Team (Late st Contact Info) Description 11/12/2024 Get Medical Advice Gastroenterology [address] [address] Provider, Migel Harris 1950 Social History Tobacco Use Types Packs/Day Years Used Date Smoking Tobacco: Never Smokeless Tobacco: Never Alcohol Use Standard Drinks/Week Comments Yes 0 (1 standard drink = 0.6 oz pure alcohol) socially, no drink since 06/2023 [facility] Utilities Answer Date Recorded In the [...] risk 5 12/11/2023 Data from: https://www.neighborhoodatlas.medicine.[facility].edu/. Last address used for calculation 2230 12/11/2023 [...] Description 01/08/2025 1:00 PM EDT Appointment Radiology [address] [place] [address] [place] [address] XR CHEST 2V FRONTAL/LAT 01/11/2025 9:30 AM EDT Office Visit Pulmonary Medicine [address] [place] [address] Triston Riggs MD [address] [place] [address] 4-6 weeks 01/26/2025 1:00 PM EDT [place] [address] [place] [address] [place] [address] [place] [address] Follow-up 02/02/2025 9:30 AM EDT Hospital Encounter Angio [address] [place] [address] MANUFACTURING MANAGER [address] [place] [address] Elevated alkaline phosphatase level [R74.8] 02/02/2025 9:30 AM EDT - 02/02/2025 11:20 AM EDT Surgery Angio [address] [place] [address] MANUFACTURING MANAGER [address] [place] [address] TRANSCATHETER BIOPSY 05/21/2025 2:00 PM EST Office Visit Cardiology [address] [place] [address] [place] [address] [facility] [place] [address] 6 month follow up Scheduled Procedures Name [...] on filedocumented in this encounter Care Teams Importer Or Exporter Relationship Specialty Start [place] [address] [facility] [address] PCP - General Family Medicine 12/29/23 Jere Sales MD [address] [address] Referring Gastroenterology 12/05/20 Calin Gotti DO [address] [place] [address] Internal Medicine 10/16/23 documented as of this encounter
--- OUTSIDE RECORDS SUMMARY | 2024-12-25 13:23 | XMS_ITS | Encounter Summary ---
Author Organization [facility] Address [address] [place] [address] Care Team Providers Care Senior Clinical Study Manager Name Role Phone Jere Sales MD Unavailable [phone] Calin Gotti DO Unavailable [phone] Jose Antonio Meyers MD Primary Care Provider [phone] Source Comments In the event this information is protected by the Federal Confidentiality of Alcohol and Drug AbusePatient Records regulations: The Federal rules restrict any use of the information to criminally investigate or prosecute any alcohol or drug abuse patient.[facility] Reason for Visit * Reason Comments Patient Question Encounter Details Date Type Department Care Team (Late st Contact Info) Description 11/17/2024 Telephone Pulmonary Medicine [address] [phone] Amanda Brooks (Pss) Patient Question Social History Tobacco Use Types Packs/Day Years Used Date Smoking Tobacco: Never Smokeless Tobacco: Never Alcohol Use Standard Drinks/Week Comments Yes 0 (1 standard drink = 0.6 oz pure alcohol) socially, no drink since 06/2023 [facility] Utilities Answer Date Recorded [...] lower risk 5 12/11/2023 Data from: https://www.neighborhoodatlas.medicine.[facility].edu/. Last address used for calculation [address] [...] 4:30 PM EDT Orlando Welhs RN * Are you blind or do [...] with physician. She can be reached at [phone] She asked if a detailed voicemail can be left if somehow she misses the call documented in this encounter Plan of Treatment Upcoming Encounters Date Type Department Care Team (Latest Contact Info) Description 01/08/2025 1:00 PM EDT Appointment Radiology [address] [place] [address] [place] [address] XR CHEST 2V FRONTAL/LAT 01/11/2025 9:30 AM EDT Office Visit Pulmonary Medicine [address] [place] [address] Triston Riggs MD [address] [place] [address] 4-6 weeks 01/26/2025 1:00 PM EDT [place] [address] [place] [address] [place] [address] [facility] [place] [address] Follow-up 02/02/2025 9:30 AM EDT Hospital Encounter Angio [address] [place] [address] CYTOLOGY LABORATORY MANAGER [address] [place] [address] Elevated alkaline phosphatase level [R74.8] 02/02/2025 9:30 AM EDT - 02/02/2025 11:20 AM EDT Surgery Angio [address] [place] [address] CYTOLOGY LABORATORY MANAGER [address] [place] [address] TRANSCATHETER BIOPSY 05/21/2025 2:00 PM EST Office Visit Cardiology [address] [place] [address] [place] [address] [facility] [address] 6 month follow up Scheduled Procedures Name [...] on filedocumented in this encounter Care Teams Senior Clinical Study Manager Relationship Specialty Start Date End Date Jose [place] [address] [address] PCP - General Family Medicine 12/29/23 Jere Sales MD [address] [address] Referring Gastroenterology 12/05/20 Calin Gotti DO [address] [place] [address] Internal Medicine 10/16/23 documented as of this encounter
--- OUTSIDE RECORDS SUMMARY | 2024-12-25 13:23 | XMS_ITS | Clinical Summary ---
Author Organization [facility] Address [address] [place] [address] Care Team Providers Care Children'S Literature Professor Name Role Phone Jere Sales MD Unavailable [phone] Calin Gotti DO Unavailable [phone] Jose Antonio Meyers MD Primary Care Provider Allergies Active Allergy Reactions Criticality Noted Date Comments Tramadol Mental Status Change Low 12/15/2020 Medications allopurinol (ZYLOPRIM) 300 mg tablet Take 300 mg by mouth once daily. 1 Active atorvastatin (LIPITOR) 10 mg tablet Take 1 tablet by mouth once daily. 1 Active diclofenac (VOLTAREN) 1 % topical gel 4 Active calcium zgy-ahr-E7-Zn-copra processor -kian 250 mg-40 mg- 125 unit-3.75mg tab Take by mouth. Active ascorbic acid, vitamin C, (VITAMIN C) 500 mg tablet Take 1,000 mg by mouth once daily. Active multivit-min/ferr ous fumarate (MULTI VITAMIN ORAL) Take 1 tablet by mouth once daily. Active guaifenesin/dextr omethorphan (MUCINEX DM ORAL) Take by mouth two times a day. Active loratadine (CLARITIN) 10 mg tablet Take 10 mg by mouth once daily. Active torsemide (DEMADEX) 100 mg tabletIndications :Recurrent 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,Anasarca Take 1 tablet by mouth once daily. 90 tablet 1 5 02/12/20 25 Active famotidine (PEPCID) 20 mg tabletIndications :Hiatal hernia,Chronic gastritis without bleeding, unspecified gastritis type Take 1 tablet by mouth two times a day. 180 tablet 5 02/12/20 25 Active metOLazone (ZAROXOLYN) 5 mg tabletIndications :Anasarca Take 1 tablet by mouth once daily. 90 tablet 5 02/12/20 25 Active quiNINE 324 mg capsuleIndication s:Cramp and spasm Take 1 capsule by mouth twice daily 60 capsule 5 Active mirabegron (MYRBETRIQ) 50 mg [id number]:U rge incontinence Take 1 tablet by mouth every evening. 30 tablet 2 5 01/15/20 25 Active potassium chloride ER (KLOR-CON M20) 20 mEq tabletIndications :Hypokalemia Take 2 tablets by mouth three times a day. 540 tablet 5 03/15/20 25 Active sucralfate (CARAFATE) 1 gram tabletIndications :Hiatal hernia Take 1 tablet by mouth four times daily. 120 tablet 2 5 01/15/20 25 Active potassium chloride (K-TAB) 20 mEq TbERIndications:R ecurrent 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,Hypokalemia 2 tablets by ORAL/FEEDING TUBE route three times a day. 540 tablet 5 12/04/19 25 amoxicillin-clavu lanate potassium (AUGMENTIN) 875-125 mg per tablet Take 1 tablet by mouth every 12 hours for 6 days. 12 tablet 11/19/2024 5:59 PM EDT 5 11/26/19 25 Active Problems Patient Care Coordination No te [...] characters) 11/20/2023: SURGERY:R VATS Pleural biopsy, R electronics system mechanic and doxycycline pleurodesis, R Pleurx catheter [...] - Controlled with current regimen of Fent APPLICATION MANAGER, Tylenol 1000 mg q6hrs, oxycodone 5-10 mg [...] Encounters Date Type Department Care Team Description 12/23/2024 Get Medical Advice Gastroenterology [address] [address] Araseli Wall APRN.CNP Stan Moyer 1950 12/22/2024 6:00 PM EDT [facility] Gastroenterology [address] [address] Araseli Wall APRN.CNP Elevated serum creatinine (Primary Dx); Elevated alkaline phosphatase level 12/17/2024 Travel 12/15/2024 11:15 AM EDT [place] [address] [place] [address] Jose Antonio Meyers MD Mixed connective tissue disease (HCC) (Primary Dx); Urge incontinence; Hypokalemia; Recurrent 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; Muscle cramps; Hiatal hernia 11/25/2024 [place] [address] [place] [address] Jose Antonio Meyers MD Refill Request 11/24/2024 Results Follow-Up Cardiology [address] [place] [address] Zac Mendiola MD 11/23/2024 2:00 PM EDT - 11/23/2024 11:59 PM EDT Hospital Encounter Radiology [address] [place] [address] Hepatomegaly [R16.0] Discharge Disposition: Home 11/23/2024 12:00 PM EDT Office Visit Pulmonary Medicine [address] [address] Triston Riggs MD Pleural effusion (Primary Dx); Pleuritis; Pericardial effusion (noninflammatory) (HCC); Lymphocytic colitis; Other ascites 11/23/2024 10:23 AM EDT - 11/23/2024 1:59 PM EDT Hospital Encounter Radiology [address] [address] Pleural effusion, not elsewhere classified [J90] Discharge Disposition: Home 11/23/2024 Telephone Thoracic Clinic [address] [place], [place] [phone] Ronaldo Ramos MD, PhD Received Outside Medical Records 11/20/2024 9:00 AM EDT Office Visit Cardiology [address] [place] [id number] Zac Mendiola MD Extremity cyanosis (Primary Dx) 11/19/2024 4:20 PM EDT - 11/19/2024 5:20 PM EDT Surgery Admitting [address] [address] Triston Riggs MD REMOVAL TUNNELED PLUERAL CATH WITH CUFF 11/19/2024 4:19 PM EDT - 11/19/2024 5:00 PM EDT Hospital Encounter Admitting [address] [phone] Triston Riggs MD Pleural effusion [J90] Discharge Disposition: Home 11/19/2024 2:00 PM EDT Office Visit Pulmonary Medicine [address] [place] [address] Triston Riggs MD Pleural effusion (Primary Dx) 11/19/2024 1:14 PM EDT - 11/19/2024 4:18 PM EDT Hospital En[facility] [address] [facility] [address] Pleural effusion [J90] Discharge Disposition: Home 11/17/2024 Telephone Pulmonary Medicine [address] [address] Amanda Brooks (Pss) Patient Question 11/17/2024 Patient [facility] Emergency Department [address] [place] [address] Provider, Ccf ER Follow Up Appointment 11/13/2024 1:00 PM EDT [place] [address] [facility] [place] [phone] Jose Antonio Meyers MD Anasarca (Primary Dx); Recurrent 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; Hepatomegaly; Hiatal hernia; Chronic gastritis without bleeding, unspecified gastritis type; Hypomagnesemia 11/13/2024 Get Medical Advice Gastroenterology [address] [address] Provider, Ccf Willie Harris. 1950 11/12/2024 1:27 PM EDT - 11/12/2024 7:04 PM EDT Emergency [facility] Emergency Department [address] [place] [address] Khurram Magallanes MD Ems, MD Ed Fluid retention, weight gain, abdominal pain, shakes, called in by Discharge Disposition: Home 11/12/2024 Get Medical Advice Gastroenterology [address] [address] Provider, Ccf Willie Harris 1950 11/12/2024 Travel 11/04/2024 12:54 PM EDT - 11/04/2024 11:59 PM EDT Hospital Encounter [facility] [place] Scan [address] [place] [address] Other ascites [R18.8] Discharge Disposition: Home 11/04/2024 12:54 PM EDT - 11/04/2024 11:59 PM EDT Hospital Encounter [facility] [place] Scan [address] [place] [address] Discharge Disposition: Home 11/04/[address] [facility] [place] [address] [place] [address] Imaging[facility] Radiology CT; Patient Update 11/03/2024 Results Follow-Up Gastroenterology [address] [address] Xiomara Santoyo, GAS TURBINE POWERPLANT MECHANIC HELPER.WHEEL BLOCKER 11/03/2024 [place] [address] [place] [address] Jose Antonio Meyers MD Pleural effusion (Primary Dx) 10/31/2024 Results Follow-Up Gastroenterology [address] [address] Xiomara Santoyo, GAS TURBINE POWERPLANT MECHANIC HELPER.WHEEL BLOCKER 10/27/2024 Orders Only Pulmonary Medicine [address] [place], [place] [phone] Vilma Graff MA Pleural effusion (Primary Dx) 10/23/2024 1:30 PM EDT - 10/23/2024 11:59 PM EDT Hospital Encounter [facility] Radiology Ultrasound [address] [place] [address] Elevated alkaline phosphatase level [R74.8] Discharge Disposition: Home 10/23/2024 Telephone Thoracic Clinic [address] [phone] Ronaldo Ramos MD, PhD Received Outside Medical Records 10/20/2024 Results Follow-Up Gastroenterology [address] [address] Xiomara Santoyo, GAS TURBINE POWERPLANT MECHANIC HELPER.WHEEL BLOCKER 10/19/2024 Get Medical Advice Pulmonary Medicine [address] [place] [address] Katerina Pascual PA-C Stan Moyer 1950 10/19/2024 [place] [address] [place] [address] Jose Antonio Meyers MD Refill Request 10/15/2024 9:20 AM EDT Office Visit [facility] [address] [phone] Ar Suarez MD FLOYD (acute kidney injury) (Primary Dx); Elevated BUN; Elevated serum creatinine; Decreased GFR; Lymphocytic colitis; Pleural effusion, not elsewhere classified; Generalized edema 10/15/2024 Results Follow-Up Gastroenterology [address] [place] [phone] Xiomara Santoyo APRN.WHEEL BLOCKER 10/15/2024 Orders Only Pulmonary Medicine [address] [place], [place] [phone] Vilma Graff MA Serositis (HCC) (Primary Dx) 10/15/2024 Orders Only Pulmonary Medicine [address] [place], [place] [phone] Vilma Graff MA 10/15/2024 Results Follow-Up Gastroenterology [address] [place] [phone] Xiomara Santoyo APRN.WHEEL BLOCKER 10/15/2024 Patient Outreach [facility] [address] [phone] Ar Suarez MD 10/14/2024 3:00 PM EDT Office Visit Gastroenterology [address] [place] [phone] Xiomara Santoyo APRN.WHEEL BLOCKER Elevated BUN (Primary Dx); Elevated serum creatinine; Decreased GFR; Elevated alkaline phosphatase level 10/14/2024 1:37 PM EDT - 10/14/2024 2:06 PM EDT Hospital Encounter Admitting [address] [place] [phone] Triston Riggs MD 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] Discharge Disposition: Home 10/14/2024 1:30 PM EDT - 10/14/2024 2:30 PM EDT Surgery Admitting [address] [address] Roseann Rosario MD THORACENTESIS NEEDLE OR CATHETER ASPIRATION OF THE PLEURAL SPACE W IMAGING GUIDANCE 10/14/2024 1:00 PM EDT Office Visit Pulmonary Medicine [address] [place], [place] [phone] Triston Riggs MD Clement, Stephanie, PA-C Pleural effusion (Primary Dx) 10/13/2024 12:52 PM EDT - 10/13/2024 11:59 PM EDT Hospital Encounter Radiology [address] [place] [address] [place] [address] Cough, unspecified type [R05.9] Discharge Disposition: Home 10/13/2024 Travel 10/10/2024 Telephone Admitting [address] [place] [phone] Hui Ivey HUC Appointment 10/07/2024 Get Medical Advice Pulmonary Medicine [address] [place] [address] Katerina Pascual PA-C Stan Moyer 1950 10/02/2024 1:15 PM EDT - 10/02/2024 3:20 PM EDT Hospital Encounter Admitting [address] [place] [phone] Merlyn Zavala MD 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] Discharge Disposition: Home 10/02/2024 11:46 AM EDT - 10/02/2024 12:46 PM EDT Surgery Admitting [address] [address] Merlyn Zavala MD THORACENTESIS NEEDLE OR CATHETER ASPIRATION OF THE PLEURAL SPACE W IMAGING GUIDANCE 10/02/2024 Get Medical Advice Gastroenterology [address] [address] Sue Terrell MD Stan Moyer 1950 10/02/2024 Get Medical Advice Gastroenterology [address] [address] Sue Terrell MD Stan Moyer 1950 10/02/2024 Abstract Pulmonary Medicine [address] [address] Katerina Pascual PA-C 10/02/2024 Telephone Admitting [address] [address] Hui Ivey HUC Appointment Confirmation 09/25/2024 11:21 AM EDT Anesthesia Event Gastroenterology [address] [place] [phone] Nick Shipman MD 09/25/2024 10:30 AM EDT - 09/25/2024 11:59 PM EDT Hospital Encounter Gastroenterology [address] [address] Shay Dennis MD Esophageal dysphagia [R13.19] Discharge Disposition: Home from Last 3 Months Immunizations Immunization Administration [...] pure alcohol) socially, no drink since 06/2023 [facility] Utilities Answer Date Recorded In the past 12 months has [employer], oil, or water [employer] threatened to shut off services in your [...] is lower risk 5 12/11/2023 Data from: https://www.neighborhoodatlas.medicine.[employer].edu/. Last address used for calculation 2230 12/11/2023 [...] 01/08/2025 1:00 PM EDT Appointment Radiology [address] [place] [address] [place] [address] XR CHEST 2V FRONTAL/LAT 01/11/2025 9:30 AM EDT Office Visit Pulmonary Medicine [address] [place] [address] Triston Riggs MD [address] [place] [address] 4-6 weeks 01/26/2025 1:00 PM EDT [place] [address] [place] [address] [place] [address] [place] [address] Follow-up 02/02/2025 9:30 AM EDT Hospital Encounter Angio [address] [place] [address] GROUND SCHOOL INSTRUCTOR [address] [place] [address] Elevated alkaline phosphatase level [R74.8] 02/02/2025 9:30 AM EDT - 02/02/2025 11:20 AM EDT Surgery Angio [address] [place] [address] GROUND SCHOOL INSTRUCTOR [address] [place] [address] TRANSCATHETER BIOPSY 05/21/2025 2:00 PM EST Office Visit Cardiology [address] [facility] [address] [place] [address] [place] [address] 6 month follow up Scheduled Procedures Name Priority Associated Diagnoses Date/Ti me TRANSCATHETER BIOPSY Elevated alkaline phosphatase level 02/02/2025 9:30 AM EDT Health Maintenance Due Date Last Done Comments [...] 06/17/2024 Medicare Advantage Annual Wellness Visit 06/17/2024 Influenza Vaccine (#1) 2025 , 05/27/2024, 05/09/2020, Additional history exists Colonoscopy 04/28/2025 04/28/2024 Colorectal Cancer Screening 04/28/2025 Annual PCP Team Chronic Dise ase Visit 12/15/2025 12/15/2024 Diabetes Screening 12/23/2027 12/22/2024, 0 11/17/2024, 11/12/2024, Additional history exists Lipid Screening 05/18/2029 05/18/2024, 12/20/2023 DTaP,Tdap,Td Vaccine (2 - Td or Tdap) 05/27/2034 05/27/2024, 08/30/2018, 06/04/2018 Pneumococcal Vaccine: 50+ Completed 02/03/2018, 05/2017 Shingrix Vaccine Discontinued 08/30/2018 RSV Vaccine Completed 05/27/2024 Hepatitis C Screening Completed 11/17/2024 , 11/17/2024, 11/17/2024 Goals Goal Patient Goal Type Associated Problems Recent Progress Patient-Stated? Author Blood Pressure < 130/80 Blood Pressure 120/74( 025 10:15 PM EDT) Merlyn Farrell MD Medical Devices Implanted Type Area Commercial Lines Account Manager Device Identifier Shelf Expiration Date Model / Serial / Lot Catheter Catheter Right: Chest Description:Pleur-x catheter Joint - Knee Joint - Knee Bilateral : Bone - Knee Screw Screw Right: Bone - Wrist Procedures Procedure Name Priority Date/Time Associated Diagnosis Comments BASIC METABOLIC PANEL Routine 12/22/2024 10:08 AM EDT Hypokalemia EXTERNAL LAB 12/16/2024 1:48 PM EDT PVR LEG [facility] Routine 12/16/2024 1 2:16 PM EDT Extremity cyanosis US VENOUS INCOMPETENCY [facility] Routine 12/16/2024 12:12 PM EDT Extremity cyanosis US ELASTOGRAPHY LIVER Routine 11/23/2024 3:05 PM [...] Routine 09/25/2024 11:14 AM EDT Esophageal dysphagia CHOLESTEROL BFL Routine 05/18/2024 12:52 PM EST Pleural effusion COLONOSCOPY (THERAPEUTIC) Routine 04/28/2024 11:16 AM EST from Last 3 Months or Most Recently Relevant to Health Maintenance Results * (ABNORMAL) BASIC METABOLIC PANEL (12/22/2024 10:08 AM EDT) Only the most recent of2 resultswithin the time period is included. Glucose 119(H) 74 - 99 mg/dL 12/22/2024 5:16 PM EDT [facility] Comment: The [place] [employer] (ADA) provides guidance for cutoff [...] Standards of Medical Care in Diabetes 2016, [place] [employer]. Diabetes Care. 2016.39(Suppl 1). BUN 45(H) 9 - 24 mg/dL 12/22/2024 5:16 PM EDT [facility] Creatinine 1.60(H) 0.73 - 1.22 mg/dL 12/22/2024 5:16 PM EDT [facility] Sodium 136 136 - 144 mmol/L 12/22/2024 5:16 PM EDT [facility] Potassium 4.3 3.7 - 5.1 mmol/L 12/22/2024 5:16 PM EDT [facility] Chloride 98 98 - 107 mmol/L 12/22/2024 5:16 PM EDT [facility] CO2 26 22 - 30 mmol/L 12/22/2024 5:16 PM EDT [facility] Anion Gap 12 8 - 15 mmol/L 12/22/2024 5:16 PM EDT [facility] Calcium, Total 9.6 8.5 - 10.2 mg/dL 12/22/2024 5:16 PM EDT [facility] Estimated Glomerular Filtration Rate 45(L) >=60 mL/min/1. 73m 12/22/2024 5:16 PM EDT [facility] Comment:Estimated Glomerular Filtration Rate [...] 10:08 AM EDT 12/22/2024 10:08 AM EDT Jose Antonio Meyers MD LABORATORY Final Resul t [facility] [address] [facility] [place] [address], * EXTERNAL LAB (12/16/2024 1:48 PM EDT) us External Provider PA-C LABORATORY Final Res ult * [facility] (12/16/2024 12:16 PM EDT) 12/16/2024 12:1 6 PM EDT [facility] - 12/16/2024 2:26 PM EDT Non-Invasive Vascular Laboratory [facility] Lower Extremity Arterial Physiology Study Bilateral/Complete Date of service/time: 12/16/2024 12:16:42 PM Name: BRYAN HARRIS Date of : 1950 Age: 74 years Gender: M Clinical Indication Extremity cyanosis. TECHNIQUE -------- An arterial physiological examination was performed, including measurement of blood pressures using continuous wave Doppler and recording of plethysmographic with or without Doppler waveforms at the below-mentioned limb segments. FINDINGS -------- RIGHT SIDE AT REST Right Pressures Brachial: 132 mmHg Ankle dorsalis pedis: 179 mmHg KAUSHAL: 1.36 Ankle posterior tibial: 173 mmHg KAUSHAL: 1.31 Right PVR Waveforms High thigh: Normal. Low thigh: Normal. Calf: Normal. Ankle: Normal. Transmetatarsal: Normal. Digit: Mildly dampened. LEFT SIDE AT REST Left Pressures Brachial: 131 mmHg Ankle dorsalis pedis: 169 mmHg KAUSHAL: 1.28 Ankle posterior tibial: 171 mmHg KAUSHAL: 1.30 Left PVR Waveforms High thigh: Normal. Low thigh: Normal. Calf: Normal. Ankle: Normal. Transmetatarsal: Normal. Digit: Mildly dampened. IMPRESSION RIGHT SIDE Resting right ankle brachial index: 1.36 Normal ankle brachial index at rest in the right leg. Right ankle: Normal at rest. Right small vessel disease versus vasoconstriction. LEFT SIDE Resting left ankle brachial index: 1.30 Normal ankle brachial index at rest in the left leg. Left ankle: Normal at rest. Left small vessel disease versus vasoconstriction. Technologist: Chadwick Adams RVT, [facility] Ordering physician: ZAC MENDIOLA Interpreting physician: Graham Juan MD, ERNESTO Final See Link below for Image us Zac Mendiola MD VASCULAR LAB Final Result [facility] [address] [place] [address] * VENOUS INCOMPETENCY [facility] (12/16/2024 12:12 PM EDT) 12/16/2024 12:1 2 PM EDT [facility] - 12/16/2024 2:14 PM EDT Non-Invasive Vascular Laboratory [facility] Venous Valvular Incompetency Bilateral/Complete Date of service/time: 12/16/2024 12:12:54 PM Name: BRYAN HARRIS Date of : 1950 Age: 74 years Gender: M Clinical Indication Extremity cyanosis. TECHNIQUE -------- A venous duplex ultrasound examination was performed, including grayscale imaging with compression maneuvers and color Doppler and spectral Doppler examination with augmentation maneuvers and response to respiration of the below mentioned veins. FINDINGS -------- Patient position reverse Trendelenburg 45 degrees. RIGHT SIDE Method of augmentation: manual. Distal external iliac vein Doppler: normal flow. Compression: normal. Common femoral vein Doppler: normal flow. Compression: normal. Femoral vein Doppler: normal flow. Compression: normal. Popliteal vein Doppler: normal flow. Compression: normal. Posterior tibial veins Compression: normal. Peroneal veins Compression: normal. Great saphenous vein Doppler: normal flow. Compression: normal. Small saphenous vein Doppler: normal flow. Compression: normal. RIGHT GREAT SAPHENOUS VEIN Saphenofemoral junction Augmentation reflux none. Valsalva reflux none. Size 0.57 cm. Mid thigh Augmentation reflux none. Valsalva reflux none. Mid calf Augmentation reflux none. RIGHT SMALL SAPHENOUS VEIN Proximal calf Augmentation reflux none. Mid calf Augmentation reflux none. LEFT SIDE Method of augmentation: manual. Distal external iliac vein Doppler: normal flow. Compression: normal. Common femoral vein Doppler: normal flow. Compression: normal. Femoral vein Doppler: normal flow. Compression: normal. Popliteal vein Doppler: normal flow. Compression: normal. Posterior tibial veins Compression: normal. Peroneal veins Compression: normal. Great saphenous vein Doppler: normal flow. Compression: normal. Small saphenous vein Doppler: normal flow. Compression: normal. LEFT GREAT SAPHENOUS VEIN Saphenofemoral junction Augmentation reflux none. Valsalva reflux none. Size 0.63 cm. Mid thigh Augmentation reflux none. Valsalva reflux none. Proximal calf Augmentation reflux greater than or equal to 0.5 second. Size 0.26 cm. Mid calf Augmentation reflux none. Size 0.27 cm. LEFT SMALL SAPHENOUS VEIN Proximal calf Augmentation reflux none. Mid calf Augmentation reflux none. IMPRESSION RIGHT SIDE - DEEP VEINS Negative for acute deep vein thrombosis. Negative for valvular incompetency in the common femoral vein, femoral vein, popliteal vein and distal external iliac vein. RIGHT SIDE - SUPERFICIAL VEINS Negative for valvular incompetency in the great saphenous vein. Negative for valvular incompetency in the small saphenous vein. LEFT SIDE - DEEP VEINS Negative for acute deep vein thrombosis. Negative for valvular incompetency in the distal external iliac vein, common femoral vein, femoral vein and popliteal vein. LEFT SIDE - SUPERFICIAL VEINS Negative for valvular incompetency in the great saphenous vein. Minimal reflux at proximal calf only. Negative for valvular incompetency in the small saphenous vein. Technologist: Chadwick Adams RVT, [facility] Ordering physician: ZAC MENDIOLA Interpreting physician: Graham Juan MD, ERNESTO Final See Link below for Image us Zac Mendiola MD VASCULAR LAB Final Result [facility] [address] [id number] * US ELASTOGRAPHY LIVER (11/23/2024 3:05 PM [...] infiltrative diseases or in the post-prandial state. Pipe Installer: ALONSO Transcribe Date/Time: Nov 26 2024 7:29A Dictated by : KRISTINA SALINAS MD This examination was interpreted and the report reviewed and electronically signed by: KRISTINA SALINAS MD on Nov 26 2024 7:35AM EST Narrative 11/26/2024 7:37 AM EDT * * *Final Report* * * DATE OF EXAM: Nov 23 2024 3:05PM [facility] [place] [facility] - [place] ELASTOGRAPHY LIVER / PROCEDURE [...] Note Provider, [facility] [place] - 11/26/2024 * * *Final Report* * * DATE OF EXAM: Nov 23 2024 3:05PM [facility] [place] [facility] - US ELASTOGRAPHY LIVER / PROCEDURE [...] infiltrative diseases or in the post-prandial state. Pipe Installer: ALONSO Transcribe Date/Time: Nov 26 2024 7:29A [...] infiltrative diseases or in the post-prandial state. Pipe Installer: ALONSO Transcribe Date/Time: Nov 26 2024 7:29A [...] Note Provider, [facility] [place] - 11/26/2024 * * *Final Report* * [...] infiltrative diseases or in the post-prandial state. Pipe Installer: ALONSO Transcribe Date/Time: Nov 26 2024 7:29A [...] 11/23/2024 1:44 PM EDT IMPRESSION: See result. Pipe Installer: ALONSO Transcribe Date/Time: Nov 23 2024 1:39P [...] the left seventh rib. Procedure Note Provider, [facility] [place] - 11/23/2024 * * *Final Report* * [...] left seventh rib. IMPRESSION IMPRESSION: See result. Pipe Installer: ALONSO Transcribe Date/Time: Nov 23 2024 1:39P [...] the prior echocardiographic exam performed on 03/26/2024 ([facility]). * * * Final * * * Narrative [facility] - 11/23/2024 11:30 AM EDT Echocardiography Report: Transthoracic Echo [place] [facility] Office Date of service: 11/23/2024 9:16:58 AM RN Ordering physician: ZAC MENDIOLA Exam indication: [...] effusion. There is an epicardial fat pad. us Zac Mendiola MD ECHO Final Result Performing Organization Address City/[facility]/ZIP Co de Phone Number [facility] [place] [address] [place] [address] * LVEF TRANSTHORACIC ECHO (11/23/2024 9:16 AM EDT) LV Ejection Fraction 52 % [facility] Comment: (2D biplane) EF > 52 An LV Ejection Fraction of > 50% is normal 11/23/2024 9:16 AM EDT Zac Mendiola MD LVEF RESULTS Final Result Performing Organization Address [facility] Co de Phone Number [facility] [place] [address] [place] [address] * XR CHEST 1V FRONTAL PORT (11/19/2024 5:18 PM EDT) Anatomical Region Laterality Modality Chest Radiographic Cece ging 11/19/2024 5:18 PM EDT Impressions 11/19/2024 7:04 PM EDT IMPRESSION: See result. Pipe Installer: PSCB Transcribe Date/Time: Nov 19 2024 6:59P [...] the aorta. Other: . Procedure Note Provider, [facility] [place] - 11/19/2024 * * *Final Report* * [...] aorta. Other: . IMPRESSION IMPRESSION: See result. Pipe Installer: PSCAc Transcribe Date/Time: Nov 19 2024 6:59P Dictated by : KYLER NICHOLAS MD This examination was interpreted and the report reviewed and electronically signed by: KYLER NICHOLAS MD on Nov 19 2024 7:02PM EST Triston Riggs MD RAD-PAMA Final Result * US CHEST (POC) H23 USE ONLY (11/19/2024 4:45 PM EDT) Anatomical Region Laterality Modality Other 11/19/2024 4:45 PM EDT us Triston Riggs MD IMAGES Final Result * XR CHEST 2V FRONTAL/LAT (11/19/2024 1:26 PM EDT) Anatomical Region Laterality Modality Chest Other 11/19/2024 1:26 PM EDT Impressions 11/19/2024 4:04 PM EDT IMPRESSION: See result Pipe Installer: ALONSO Transcribe Date/Time: Nov 19 2024 3:58P [...] of the left rib/ribs. Procedure Note Provider, [facility] [place] - 11/19/2024 * * *Final Report* * [...] the left rib/ribs. IMPRESSION IMPRESSION: See result Pipe Installer: ALONSO Transcribe Date/Time: Nov 19 2024 3:58P [...] - 2.3 mg/dL 11/18/2024 1:52 PM EDT [facility] Blood BLOOD SPECIMEN / Unknown Venipuncture / Unknown 11/17/2024 1:53 PM EDT 11/17/2024 1:53 PM EDT Jose Antonio Meyers MD LABORATORY Final Resul t [facility] [address] [facility] [place] [address], [place] * IRON AND TIBC (11/17/2024 1:53 PM EDT) [facility] Iron 72 41 - 186 ug/dL 11/18/2024 2:24 PM EDT [facility] TIBC 321 232 - 386 ug/dL 11/18/2024 2:24 PM EDT [facility] Transferrin Saturation 22.4 15.0 - 57.0 % 11/18/2024 2:24 PM EDT [facility] Blood BLOOD SPECIMEN / Unknown Venipuncture / Unknown 11/17/2024 1:53 PM EDT 11/17/2024 1:53 PM EDT us Jose Antonio Meyers MD LABORATORY Final Resul t Performing Organization Address [facility]/ZIP Co de Phone Number [facility] [address] [place] [address], [place] * HEPATITIS C VIRUS (HCV) RNA, QUANTITATIVE PCR, PLASMA/SERUM (11/17/2024 1:53 PM EDT) [facility] HCV RNA Not detected Not detected KRISTIE CHARLENE [id number] 11/18/2024 10:20 AM EDT [facility] Blood BLOOD SPECIMEN / Unknown Venipuncture / Unknown 11/17/2024 1:53 PM EDT 11/17/2024 1:53 PM EDT Narrative [facility] - 11/18/2024 10:20 AM EDT charlene [...] LABORATORY Final Resul t Performing Organization Address City/[facility]/ZIP Co de Phone Number [facility] [address] [place], [place] [id number], [place] * HEPATITIS B SURFACE ANTIGEN (11/17/2024 1:53 PM EDT) HBsAg Negative Negative 11/18/2024 11:16 AM EDT [facility] Blood BLOOD SPECIMEN / Unknown Venipuncture / Unknown 11/17/2024 1:53 PM EDT 11/17/2024 1:53 PM EDT Jose Antonio Meyers MD LABORATORY Final Resul t Performing Organization Address [facility] Co de Phone Number [facility] [address] [place] [address], [place] * HEPATITIS B CORE ANTIBODY IGM (11/17/2024 1:53 PM EDT) Hep B Core Ab, IgM Negative Negative 11/18/2024 11:14 AM EDT [facility] Comment:No evidence of recen t infection with Hepatitis B virus. Should recent infection be suspected, repeat testing may be considered 3-4 weeks after this draw. Blood BLOOD SPECIMEN / Unknown Venipuncture / Unknown 11/17/2024 1:53 PM EDT 11/17/2024 1:53 PM EDT Jose Antonio Meyers MD LABORATORY Final Resul t Performing Organization Address [facility] Co de Phone Number [facility] [address] [place], [place] [id number], [place] * HEPATITIS A ANTIBODY IGM (11/17/2024 1:53 PM EDT) Hep A Ab, IgM Negative Negative 11/18/2024 11:20 AM EDT [facility] Comment:No evidence of recen t infection with Hepatitis A virus. Blood BLOOD SPECIMEN / Unknown Venipuncture / Unknown 11/17/2024 1:53 PM EDT 11/17/2024 1:53 PM EDT us Jose Antonio Meyers MD LABORATORY Final Resul t Performing Organization Address City/[facility]/ZIP Co de Phone Number [facility] [address] [facility] [address], [place] * (ABNORMAL) COPPER BLOOD (11/17/2024 1:53 PM EDT) Pathologist [facility] Copper 159(H) 70 - 140 ug/dL 11/18/2024 11:03 AM EDT [facility] Comment:This test was develo ped, and its performance characteristics determined by the [facility] Department of Pathology and Laboratory Medicine. It has not been cleared or approved by the FDA. The [facility] Department of Pathology and Laboratory Medicine is regulated under CLIA as qualified to perform high- complexity testing. This test is used for clinical purposes. It should not be regarded as investigational or for research. Blood BLOOD SPECIMEN / Unknown Venipuncture / Unknown 11/17/2024 1:53 PM EDT 11/17/2024 1:53 PM EDT us Jose Antonio Meyers MD LABORATORY Final Resul t [facility] [address] [address], [place] * (ABNORMAL) COMPREHENSIVE METABOLIC PANEL (11/17/2024 1:53 PM EDT) Only the most recent of4 resultswithin the time period is included. [facility] Protein, Total 7.3 6.3 - 8.0 g/dL 11/18/2024 1:52 PM EDT [facility] Albumin 4.1 3.9 - 4.9 g/dL 11/18/2024 1:52 PM EDT [facility] Calcium, Total 9.5 8.5 - 10.2 mg/dL 11/18/2024 1:52 PM EDT [facility] Bilirubin, Total 0.8 0.2 - 1.3 mg/dL 11/18/2024 1:52 PM EDT [facility] Alkaline Phosphatase 112 38 - 113 U/L 11/18/2024 1:52 PM EDT [facility] AST 47(H) 14 - 40 U/L 11/18/2024 1:52 PM [facility] ALT 34 10 - 54 U/L 11/18/2024 1:52 PM [facility] Glucose 104(H) 74 - 99 mg/dL 11/18/2024 1:52 PM [facility] Comment: The [place] [employer] (ADA) provides guidance for cutoff [...] Standards of Medical Care in Diabetes 2016, [place] [employer]. Diabetes Care. 2016.39(Suppl 1). BUN 55(H) 9 - 24 mg/dL 11/18/2024 1:52 PM [facility] Creatinine 1.38(H) 0.73 - 1.22 mg/dL 11/18/2024 1:52 PM [facility] Sodium 139 136 - 144 mmol/L 11/18/2024 1:52 PM [facility] Potassium 3.8 3.7 - 5.1 mmol/L 11/18/2024 1:52 PM [facility] Chloride 97(L) 98 - 107 mmol/L 11/18/2024 1:52 PM [facility] CO2 30 22 - 30 mmol/L 11/18/2024 1:52 PM [facility] Anion Gap 12 8 - 15 mmol/L 11/18/2024 1:52 PM [facility] Estimated Glomerular Filtration Rate 54(L) >=60 mL/min/1. 73m 11/18/2024 1:52 PM [facility] Comment:Estimated Glomerular Filtration Rate (eGFR) is [...] LABORATORY Final Resul t Performing Organization Address [facility] Co de Phone Number [facility] [address] [place] [phone], [place] * HEPATITIS C ANTIBODY IA WITH CONFIRMATION (11/17/2024 1:53 PM EDT) [facility] Hep C Antibody IA Negative Negative 11/18/2024 11:05 AM EDT [facility] Comment:The result suggests no evidence of infection with Hepatitis C virus. Should recent infection be suspected, repeat testing may be considered 4-6 weeks after this draw. Blood BLOOD SPECIMEN / Unknown Venipuncture / Unknown 11/17/2024 1:53 PM EDT 11/17/2024 1:53 PM EDT us Jose Antonio Meyers MD LABORATORY Final Resul t Performing Organization Address [facility] de Phone Number [facility] [address] [place] [address], [place] * (ABNORMAL) HIGH SENSITIVITY TROPONIN T (THIRD) 3 HRS AFTER INITIAL (11/12/2024 5:13 PM EDT) [facility] HELIO High Sensitivity 16(H) <12 ng/L 11/12/2024 5:40 PM EDT [facility] Blood BLOOD SPECIMEN / Unknown Venipuncture / Unknown 11/12/2024 5:13 PM EDT 11/12/2024 5:17 PM EDT us Juliano Garcia MD LABORATORY Final Result Performing Organization Address City/[facility]/ZIP Co de Phone Number [facility] [address] [facility] [address] [place] [address], [place] * US DVT LOWER BILATERAL (11/12/2024 [...] of the left and right lower extremities. Pipe Installer: PSCB Transcribe Date/Time: Nov 12 2024 4:27P Dictated by : TAJ CINTRON MD This examination was interpreted and the report reviewed and electronically signed by: CHANTEL HEIN MD on Nov 12 2024 4:30PM EST Narrative 11/12/2024 4:33 PM EDT * * *Final Report* * * DATE OF EXAM: Nov 12 2024 4:18PM [facility] 1005 - US DVT LOWER ROCIO / [...] calf, not otherwise assessed. Procedure Note Provider, [facility] [place] - 11/12/2024 * * *Final Report* * * DATE OF EXAM: Nov 12 2024 4:18PM [facility] [place] - DVT LOWER ROCIO / PROCEDURE REASON: Leg [...] of the left and right lower extremities. Pipe Installer: [facility] Transcribe Date/Time: Nov 12 2024 4:27P Dictated by : TAJ CINTRON MD This examination was interpreted and the report reviewed and electronically signed by: CHANTEL HEIN MD on Nov 12 2024 4:30PM EST Khurram Magallanes MD [facility] Final Result * (ABNORMAL) HIGH SENSITIVITY TROPONIN T (SECOND) (11/12/2024 3:11 PM EDT) Pathologist [facility] HELIO High Sensitivity 17(H) <12 ng/L 11/12/2024 3:45 PM EDT [facility] Blood BLOOD SPECIMEN / Unknown Venipuncture / Unknown 11/12/2024 3:11 PM EDT 11/12/2024 3:15 PM EDT Juliano Garcia MD LABORATORY Final Result [facility] [address] [facility] [address], * XR CHEST 2V FRONTAL/LAT (11/12/2024 1:49 PM EDT) Anatomical Region Laterality Modality Chest Radiographic Cece ging 11/12/2024 1:49 PM EDT Impressions 11/12/2024 1:55 PM EDT IMPRESSION: Similar appearance of small right loculated pleural effusion compared to prior. No new radiographic abnormalities. Pipe Installer: ALONSO Transcribe Date/Time: Nov 12 2024 1:50P [...] changes of the spine. Procedure Note Provider, [facility] [place] - 11/12/2024 * * *Final Report* * [...] compared to prior. No new radiographic abnormalities. Pipe Installer: PSCB Transcribe Date/Time: Nov 12 2024 1:50P Dictated by : OCTAVIO WOODARD MD This examination was interpreted and the report reviewed and electronically signed by: MERLYN EASTON MD on Nov 12 2024 1:53PM EST us Juliano Garcia MD RAD-PAMA Final Result * (ABNORMAL) HIGH SENSITIVITY TROPONIN T (INITIAL) (11/12/2024 1:30 PM EDT) [facility] HELIO High Sensitivity 18(H) <12 ng/L 11/12/2024 2:04 PM EDT [facility] Blood BLOOD SPECIMEN / Unknown Venipuncture / Unknown 11/12/2024 1:30 PM EDT 11/12/2024 1:34 PM EDT us Juliano Garcia MD LABORATORY Final Result Performing Organization Address [facility] Co de Phone Number [facility] [address] [place] [address], [place] * (ABNORMAL) NT PRO BNP (11/12/2024 1:30 PM EDT) [facility] NT Pro BNP 465(H) <125 pg/mL 11/12/2024 2:04 PM EDT [facility] Blood BLOOD SPECIMEN / Unknown Venipuncture / Unknown 11/12/2024 1:30 PM EDT 11/12/2024 1:34 PM EDT us Juliano Garcia MD LABORATORY Final Result Performing Organization Address [facility]/ZIP Co de Phone Number [facility] [address] [facility] [address], * (ABNORMAL) COMPLETE BLOOD COUNT AND DIFFERENTIAL (11/12/2024 1:30 PM EDT) Only the most recent of2 resultswithin the time period is included. Pathologist [facility] WBC 8.79 3.70 - 11.00 k/uL 11/12/2024 1:39 PM EDT [facility] RBC 3.82(L) 4.20 - 6.00 m/uL 11/12/2024 1:39 PM EDT [facility] Hemoglobin 12.3(L) 13.0 - 17.0 g/dL 11/12/2024 1:39 PM EDT [facility] Hematocrit 37.1(L) 39.0 - 51.0 % 11/12/2024 1:39 PM EDT [facility] MCV 97.1 80.0 - 100.0 fL 11/12/2024 1:39 PM EDT [facility] MCH 32.2 26.0 - 34.0 pg 11/12/2024 1:39 PM EDT [facility] MCHC 33.2 30.5 - 36.0 g/dL 11/12/2024 1:39 PM EDT [facility] RDW-CV 16.6(H) 11.5 - 15.0 % 11/12/2024 1:39 PM EDT [facility] Platelet Count 189 150 - 400 k/uL 11/12/2024 1:39 PM EDT [facility] MPV 10.0 9.0 - 12.7 fL 11/12/2024 1:39 PM EDT [facility] Neutrophils % 80.0 % 11/12/2024 1:39 PM EDT [facility] Abs Neut 7.03 1.45 - 7.50 k/uL 11/12/2024 1:39 PM EDT [facility] Lymphocytes % 10.4 % 11/12/2024 1:39 PM EDT [facility] Abs Lymph 0.91(L) 1.00 - 4.00 k/uL 11/12/2024 1:39 PM EDT [facility] Monocytes % 7.6 % 11/12/2024 1:39 PM EDT [facility] Abs Lamoure 0.67 <0.87 k/uL 11/12/2024 1:39 PM EDT [facility] Eosinophils % 0.0 % 11/12/2024 1:39 PM EDT [facility] Abs Eosin <0.03 <0.46 k/uL 11/12/2024 1:39 PM EDT [facility] Basophils % 0.2 % 11/12/2024 1:39 PM EDT [facility] Abs Baso <0.03 <0.11 k/uL 11/12/2024 1:39 PM EDT [facility] Immature Granulocytes % 1.8 % 11/12/2024 1:39 PM EDT [facility] Abs Immature Gran 0.16(H) <0.10 k/uL 025 1:39 PM EDT [facility] NRBC 0.0 /100 WBC 11/12/2024 1:39 PM EDT [facility] Absolute nRBC <0.01 <0.01 k/uL 11/12/2024 1:39 PM EDT [facility] Diff Type Auto 11/12/2024 1:39 PM EDT [facility] Blood BLOOD SPECIMEN / Unknown Venipuncture / Unknown 11/12/2024 1:30 PM EDT 11/12/2024 1:34 PM EDT us Juliano Garcia MD LABORATORY Final Result [facility] [address] [place] [address], * ECG COMPLETE (11/12/2024 1:24 PM EDT) Ventricular Rate 88 BPM [facility] Atrial Rate 88 BPM [facility] P-R Interval 176 ms [facility] QRS Duration 80 ms [facility] QT Inter[facility] 354 ms [facility] QTC Calculation (Bazett) 428 ms [facility] Calculated P [place] 8 degrees [facility] Calculated R Masterson 3 degrees [facility] Calculated T Masterson 246 degrees [facility] 11/12/2024 1:24 PM EDT Impressions [facility] - 11/22/2024 12:19 PM EDT SINUS RHYTHM WITH OCCASIONAL PREMATURE VENTRICULAR COMPLEXES NONSPECIFIC T WAVE ABNORMALITY ABNORMAL ECG Confirmed by JULIANO GARCIA ([id number]), book or script editor ANA PORTILLO ([id number]) on 11/22/2024 12:18:59 PM [facility] - 11/22/2024 12:19 PM EDT NAME : BRYAN HARRIS PID : [id number] : 1950 Gender : Male Race : ORD : [id number] Procedure Date : Nov 12 2024 13:24:15 Edit Date : Nov 22 2024 12:19:03 Diagnosis: SINUS RHYTHM WITH OCCASIONAL PREMATURE VENTRICULAR COMPLEXES NONSPECIFIC T WAVE ABNORMALITY ABNORMAL ECG Confirmed by JULIANO GARCIA ([id number]), book or script editor ANA PORTILLO ([id number]) on 11/22/2024 12:18:59 PM Test Reason : Chest Pain Location : 2 : EDNS 003 Overread By : JULIANO GARCIA Edited By : ANA PORTILLO Referred By : , Acquired by : , Juliano Garcia MD EKG Final Result [place] [address] * (ABNORMAL) COMPLETE BLOOD COUNT (11/05/2024 11:42 AM EDT) Only the most recent of2 resultswithin the time period is included. WBC 8.65 3.70 - 11.00 k/uL 11/05/2024 11:44 AM EDT [facility] RBC 3.89(L) 4.20 - 6.00 m/uL 11/05/2024 11:44 AM EDT [facility] Hemoglobin 12.4(L) 13.0 - 17.0 g/dL 11/05/2024 11:44 AM EDT [facility] Hematocrit 38.3(L) 39.0 - 51.0 % 11/05/2024 11:44 AM EDT [facility] MCV 98.5 80.0 - 100.0 fL 11/05/2024 11:44 AM EDT [facility] MCH 31.9 26.0 - 34.0 pg 11/05/2024 11:44 AM EDT [facility] MCHC 32.4 30.5 - 36.0 g/dL 11/05/2024 11:44 AM EDT [facility] RDW-CV 16.2(H) 11.5 - 15.0 % 11/05/2024 11:44 AM EDT [facility] Platelet Count 150 150 - 400 k/uL 11/05/2024 11:44 AM EDT [facility] MPV 9.8 9.0 - 12.7 fL 11/05/2024 11:44 AM EDT [facility] Absolute nRBC <0.01 <0.01 k/uL 11/05/2024 11:44 AM EDT [facility] Blood BLOOD SPECIMEN / Unknown Venipuncture / Unknown 11/05/2024 11:42 AM EDT 11/05/2024 11:42 AM EDT Jose Antonio Meyers MD LABORATORY Final Resul t [facility] [address] [place] [address] * CT ENTEROGRAPHY W IVCON (11/04/2024 3:04 PM EDT) Anatomical Region Laterality Modality Abdomen Computed Tomogra phy 11/04/2024 3:04 PM EDT Impressions 11/04/2024 5:16 PM EDT IMPRESSION: NO ACTIVE INFLAMMATORY SMALL BOWEL CROHN'S DISEASE. SUSPECTED CHRONIC LIVER DISEASE WITH SMALL VOLUME ASCITES. SMALL RIGHT PLEURAL EFFUSION WITH RIGHT PLEURAL CATHETER. SMALL HIATAL HERNIA. Pipe Installer: ALONSO Transcribe Date/Time: Nov 04 2024 3:57P Dictated by : IZABELA LAMBERT MD This examination was interpreted and the report reviewed and electronically signed by: IZABELA LAMBERT MD on Nov 04 2024 5:14PM EST Narrative 11/04/2024 5:16 PM EDT * * *Final Report* * * DATE OF EXAM: Nov 04 2024 3:04PM [facility] 0545 - CT ENTEROGRAPHY W IVCON [...] images: No additional findings. Procedure Note Provider, [facility] [place] - 11/04/2024 * * *Final Report* * * DATE OF EXAM: Nov 04 2024 3:04PM [facility] 0545 - CT ENTEROGRAPHY W IVCON [...] WITH RIGHT PLEURAL CATHETER. SMALL HIATAL HERNIA. [facility]ipe [facility] Transcribe Date/Time: Nov 04 2024 3:57P Dictated by : IZABELA LAMBERT MD This examination was interpreted and the report reviewed and electronically signed by: IZABELA LAMBERT MD on Nov 04 2024 5:14PM EST Xiomara Santoyo APRN.WHEEL BLOCKER CT-PAMA Final Re sult * FAT, FECAL QUAL (10/28/2024 11:00 AM EDT) Fat, Fecal - Neutral Normal Normal 10/31/2024 12:57 AM EDT [facility] Fat, Fecal - Split Normal Normal 10/31/2024 12:57 AM EDT [facility] Comment: INTERPRETIVE INFORMATION: Fecal Fat Qualitative Neutral fats include the monoglycerides, diglycerides, and triglycerides while split fats are the free fatty acids that are liberated from them. Impaired synthesis or secretion of pancreatic enzymes or bile may cause an increase in neutral fats while an increase in split fats suggests impaired absorption of nutrients. Performed By: [facility] [address] [place] [address] Crimping Machine Operator: Arley Correa MD, PhD CLIA Number: [id number] Stool STOOL SPECIMEN / Unknown Non Blood / Unknown 10/28/2024 11:00 AM EDT 10/28/2024 12:40 PM EDT us Xiomara Natanael [employer] POWERPLANT MECHANIC HELPER.[facility] Final Re sult [facility] [address] [place] [address] * US ABD SPLEEN - NB (10/23/2024 2:18 PM EDT) Anatomical Region Laterality Modality Ultrasound 10/23/2024 2:18 PM EDT Impressions 10/26/2024 2:36 PM EDT IMPRESSION: 1. Mild nodularity of the liver surface, which may be seen with cirrhosis. No focal hepatic lesions. 2. Small volume abdominal ascites. No splenomegaly. Pipe Installer: PSCB Transcribe Date/Time: Oct 26 2024 2:30P Dictated by : SANDRA BELTRE MD This examination was interpreted and the report reviewed and electronically signed by: SANDRA BELTRE MD on Oct 26 2024 2:34PM EST Narrative 10/26/2024 2:36 PM EDT * * *Final Report* * * DATE OF EXAM: Oct 23 2024 2:18PM [facility] 1232 - US ABD SPLEEN -NB [...] are no splenic lesions. Procedure Note Provider, [facility] [place] - 10/26/2024 * * *Final Report* * * DATE OF EXAM: Oct 23 2024 2:18PM [facility] 1232 - US ABD SPLEEN -NB [...] 2. Small volume abdominal ascites. No splenomegaly. Pipe Installer: PSCB Transcribe Date/Time: Oct 26 2024 2:30P Dictated by : SANDRA BELTRE MD This examination was interpreted and the report reviewed and electronically signed by: SANDRA BELTRE MD on Oct 26 2024 2:34PM EST us Xiomara Santoyo [employer] P[employer]PL[employer] MECHANIC HELPER.[employer] Final Re sult * US ABD RIGHT UPPER QUADRANT (10/23/2024 2:18 PM EDT) Anatomical Region Laterality Modality Abdomen Ultrasound 10/23/2024 2:18 PM EDT Impressions 10/26/2024 2:36 PM EDT IMPRESSION: 1. Mild nodularity of the liver surface, which may be seen with cirrhosis. No focal hepatic lesions. 2. Small volume abdominal ascites. No splenomegaly. Pipe Installer: PSCB Transcribe Date/Time: Oct 26 2024 2:30P [...] are no splenic lesions. Procedure Note Provider, [facility] [place] - 10/26/2024 * * *Final Report* * [...] 2. Small volume abdominal ascites. No splenomegaly. Pipe Installer: [facility] Transcribe Date/Time: Oct 26 2024 2:30P Dictated by : SANDRA BELTRE MD This examination was interpreted and the report reviewed and electronically signed by: SANDRA BELTRE MD on Oct 26 2024 2:34PM EST Xiomara Santoyo [employer] POWERPLANT MECHANIC HELPER.WHE[employer] Final Re sult * IGG SUBCLASS 1,2,3,4 (10/23/2024 1:18 PM EDT) IgG Subclass 1 576.5 382.4 - 928.6 mg/dL 10/26/2024 3:36 PM EDT [facility] IgG Subclass 2 251.2 241.8 - 700.3 mg/dL 10/26/2024 3:36 PM EDT [facility] IgG Subclass 3 50.4 21.8 - 176.1 mg/dL 10/26/2024 3:36 PM EDT [facility] IgG Subclass 4 64.4 3.9 - 86.4 mg/dL 10/26/2024 3:36 PM EDT [facility] Blood BLOOD SPECIMEN / Unknown Venipuncture / Unknown 10/23/2024 1:18 PM EDT 10/23/2024 1:19 PM EDT Ar Suarez MD LABORATORY Final Resu lt [facility] [address] [address], [place] * LIPASE (10/23/2024 1:18 PM EDT) Lipase 55 16 - 61 U/L 10/23/2024 2:05 PM EDT [facility] Blood BLOOD SPECIMEN / Unknown Venipuncture / Unknown 10/23/2024 1:18 PM EDT 10/23/2024 1:19 PM EDT Ar Suarez MD LABORATORY Final Resu lt [facility] [id number] [place] [id number], [place] * IMMUNOGLOBULIN G (10/23/2024 1:18 PM EDT) IgG 1,100 700 - 1,600 mg/dL 10/23/2024 7:51 PM EDT [facility] Blood BLOOD SPECIMEN / Unknown Venipuncture / Unknown 10/23/2024 1:18 PM EDT 10/23/2024 1:19 PM EDT Ar Suarez MD LABORATORY Final Resu lt [facility] [address] [address], [place] * AMYLASE (10/23/2024 1:18 PM EDT) Amylase 70 30 - 104 U/L 10/23/2024 2:05 PM EDT [facility] Blood BLOOD SPECIMEN / Unknown Venipuncture / Unknown 10/23/2024 1:18 PM EDT 10/23/2024 1:19 PM EDT Ar Suarez MD LABORATORY Final Resu lt [facility] [address] [place] [address], [place] * (ABNORMAL) ALKALINE PHOSPHATASE ISOENZYMES (P) (10/15/2024 10:25 AM EDT) Alk Phos Bone % 18.1 10.7 - 68.3 % 10/16/2024 9:58 PM EDT [facility] Bone Fraction 22.6 12.9 - 52.6 U/L 10/16/2024 9:58 PM EDT [facility] Alk Phos Liver % 81.9 26.0 - 86.2 % 10/16/2024 9:58 PM EDT [facility] Liver Fraction 102.4(H) 16.0 - 69.3 U/L 10/16/2024 9:58 PM EDT [facility] Alk Phos Intestine % 0.0 0.0 - 24.2 % 10/16/2024 9:58 PM EDT [facility] Intestine Fraction 0.0 0.0 - 16.3 U/L 10/16/2024 9:58 PM EDT [facility] Blood BLOOD SPECIMEN / Unknown Venipuncture / Unknown 10/15/2024 10:25 AM EDT 10/15/2024 10:26 AM EDT Xiomara Santoyo APRN.CNP LABORATORY Final Re sult Performing Organization Address City/[facility]/ZIP Co de Phone Number [facility] [address] [address], [place] * (ABNORMAL) SEDIMENTATION RATE, WESTERGREN (10/15/2024 10:25 AM EDT) Sed Rate, Westergren 34(H) 0 - 15 mm/hr 10/15/2024 2:45 PM EDT [facility] Blood BLOOD SPECIMEN / Unknown Venipuncture / Unknown 10/15/2024 10:25 AM EDT 10/15/2024 10:26 AM EDT Ar Suarez MD LABORATORY Final Resu lt [facility] [address] [place] [id number], [place] * (ABNORMAL) ALKALINE PHOSPHATASE (10/15/2024 10:25 AM EDT) Alkaline Phosphatase 125(H) 38 - 113 U/L 10/15/2024 7:51 PM EDT [facility] Blood BLOOD SPECIMEN / Unknown Venipuncture / Unknown 10/15/2024 10:25 AM EDT 10/15/2024 10:26 AM EDT us Xiomara Santoyo GAS TURBINE POWERPLANT MECHANIC HELPER.WHEEL BLOCKER LABORATORY Final Re sult Performing Organization Address [facility] Co de Phone Number [facility] [address] [place] [address], [place] * (ABNORMAL) HIGH SENSITIVITY C-REACTIVE PROTEIN (10/15/2024 10:25 AM EDT) UltraSens C-Reactive Protein 13.2(H) <3.1 mg/L 10/15/2024 7:51 PM EDT [facility] Comment: hsCRP < 1.0 mg/L, relative risk is low hsCRP 1.0-3.0 mg/L, relative risk is average hsCRP > 3.0 mg/L, relative risk is high Reference: Owens TA, Wilma GA, Octavio RW, et al. Markers of Inflammation and Cardiovascular Disease. Application to Clinical and Public Health Practice. A Statement for Healthcare Professionals from the Centers for Disease Control and Prevention and the [place] [employer]. Circulation 2003;107:499-511. Blood BLOOD SPECIMEN / Unknown Venipuncture / Unknown 10/15/2024 10:25 AM EDT 10/15/2024 10:26 AM EDT us Ar Suarez MD LABORATORY Final Resu lt Performing Organization Address [facility]/ZIP Co de Phone Number [facility] [address] [place] [id number], [place] * (ABNORMAL) PROTEIN / CREATININE RATIO (10/15/2024 10:09 AM EDT) Protein, Urine Random <4 0 - 20 mg/dL 10/15/2024 10:10 PM EDT [facility] Creatinine, Ur Random (UCRR) 12.6(L) 20.0 - 300.0 mg/dL 10/15/2024 10:10 PM EDT [facility] Protein/Creat Ratio <0.32(H) <0.15 mg/mg 10/15/2024 10:10 PM EDT [facility] Comment: Adult Proteinuria Categories: <0.15 [...] Ar Suarez MD LABORATORY Final Resu lt [facility] [address] [place] [id number], [place] * UA DIP, URINE (POC) (10/15/2024 9:38 AM EDT) GLUCOSE UA (POCT) Negative Negative mg/dL [facility] BILIRUBIN UA (POCT) Negative Negative [facility] KETONE UA (POCT) Negative Negative mg/dL [facility] SPECIFIC GRAVITY UA (POCT) 1.015 1.005 - 1.030 [facility] HEMOGLOBIN/BLOOD UA (POCT) Negative Negative [facility] PH UA (POCT) 7.0 4.5 - 8.0 [facility] PROTEIN UA (POCT) Negative Negative mg/dL [facility] UROBILINOGEN UA (POCT) 0.2 Normal E.U./dL [facility] NITRITE UA (POCT) Negative Negative [facility] LEUKOCYTES UA (POCT) Negative Negative [facility] COLOR UA (POCT) Light yellow [facility] CLARITY UA (POCT) Clear [facility] 10/15/2024 9:38 AM EDT Narrative [facility] POINT OF CARE - 10/15/2024 9:38 AM EDT Location:[facility], [address] [place] [address], [address] us Ar Suarez MD POC TESTING Final Resu lt Performing Organization Address [facility]/ZIP Co de Phone Number [facility] POINT OF CARE [address] * (ABNORMAL) GGT (10/14/2024 3:53 PM EDT) GGT 136(H) 10 - 70 U/L 10/15/2024 3:16 AM EDT [facility] Blood BLOOD SPECIMEN / Unknown Venipuncture / Unknown 10/14/2024 3:53 PM EDT 10/14/2024 3:53 PM EDT us Xiomara Santoyo APRN.WHEEL BLOCKER LABORATORY Final Re sult Performing Organization Address [facility] Co de Phone Number [facility] [address] [place] [address] [address] [place] [id number], [place] * PROTEIN, BODY FLUID (10/14/2024 1:53 PM EDT) Protein, Body Fluid 2.5 See Comment g/dL 10/14/2024 4:24 PM EDT [facility] Comment: Serous fluids: Effusions are [...] document C49A. RAJEEV Bui: Clinical Laboratory Standards [place]: 2007. Fluid, Thoracentesis PLEURAL FLUID / Unknown 10/14/2024 1:53 PM EDT 10/14/2024 2:25 PM EDT Roseann Rosario MD LABORATORY Final Result [facility] [address] [facility] [address] [place] [address], [place] * LACTATE DEHYDROGENASE, BODY FLUID (10/14/2024 1:53 PM EDT) LD,Body Fluid 110 See Comment U/L 10/14/2024 4:24 PM EDT [facility] Comment: Pleural fluids: Pleural fluid [...] document C49A. RAJEEV Bui: Clinical Laboratory Standards [place]: 2007. Reference: 2. Rafael STARK, Fei Doyle. [...] us Roseann Rosario MD LABORATORY Final Result [facility] [address] [facility] [address] [place] [address], [place] * US CHEST (POC) H23 USE [...] any questions regarding this interpretation, please call [phone]. If you are unable to reach us at the number above, please feel free to contact [facility] eRadiology at [phone]. Narrative 10/13/2024 3:26 PM EDT * * [...] and soft tissues: Unremarkable. Procedure Note Provider, [facility] [place] - 10/13/2024 * * *Final Report* * [...] any questions regarding this interpretation, please call [phone]. If you are unable to reach us at the number above, please feel free to [facility] at [phone]. us Louise Douglas MD RAD-PAMA Final Result * PT ED PATIENT INFORMATION (10/08/2024) 10/08/2024 Narrative KATHY - 11/23/2024 Provider NATANAEL your patient BRYAN HARRIS has not started their Kathy program, time has . Kathy program: PATIENT SAFETY INSTRUCTIONS FOR HEALTHCARE SETTINGS us Xiomara Santoyo GAS TURBINE POWERPLANT MECHANIC HELPER.WHEEL BLOCKER KATHY Final Re sult KATH[facility] * US CHEST (POC) H23 USE ONLY (10/02/2024 12:23 PM EDT) Anatomical Region Laterality Modality Other 10/02/2024 12:2 3 PM EDT us Merlyn Zavala MD IMAGES Final Resu lt * SURGICAL PATHOLOGY (09/25/2024 11:32 AM EDT) Case Report Surgical Pathology Report Case: [id number] Authorizing Provider: Shay Dennis MD Collected: 09/25/2024 11:32 AM Ordering Location: Gastroenterology Received: 09/25/2024 04:32 PM Pathologist: Simba Frias MD, PhD Specimen: Stomach, Biopsy, R/O: H. Pylori 10/01/2024 5:25 PM EDT [facility] FINAL DIAGNOSIS A. Stomach, biopsy: - Chronic focally active gastritis and reactive gastropathy in antral and oxyntic mucosa. - Negative for intestinal metaplasia or dysplasia. - H. pylori immunostain will be reported as an addendum. 10/01/2024 5:25 PM EDT [facility] at 1344 EDT Gross Description A. Stomach, Biopsy Received in formalin are multiple pieces of de la garza, soft tissue aggregating to 1.9 x 0.3 x 0.2 cm. Totally submitted in one cassette. Gross examination performed at [facility], [address] [place] [address] KK September 25, 2024 6:03 PM 10/01/2024 5:25 PM EDT [facility] Performing Lab Diagnostic interpretation performed at: [facility], [address] [place] [address], [place] [address] CLIA# [id number] Crimping Machine Operator: Ramos Strickland MD 10/01/2024 5:25 PM EDT [facility] Addendum Addendum is issued t o reflect the result of immunohistochemical stain: - Immunostain for H. pylori is negative in part A. 10/01/2024 5:25 PM EDT [facility] Addendum electronically signed by Simba Frias MD, PhD on 10/01/2024 at 1725 EDT Disclaimer Laboratory Developed Test (LDT) Disclaimer: Performance characteristics of immunohistochemical, immunofluorescent, and chromogenic in-situ hybridization tests have been determined by the performing laboratory within [facility]'s [facility] Pathology and Laboratory Medicine Department ([facility], [facility], [facility], [facility], [facility], [facility], or [facility]) in a manner consistent with CLIA requirements. One or more of these tests may not have been cleared or approved by the FDA. [facility] is regulated under CLIA as qualified to perform high-complexity testing. These tests are used for clinical purposes. These should not be regarded as investigational or for research. Positive and negative controls stain appropriately. 10/01/2024 5:25 PM EDT [facility] Tissue BIOPSY OF STOMACH / Unknown 09/25/2024 11:32 AM EDT 09/25/2024 4:32 PM EDT us Shay Dennis MD SURGICAL PATHOLOGY Edited Resul t - Final [facility] [address] [place] [address], * EGD DIAGNOSTIC (09/25/2024 11:14 AM EDT) Anatomical Region Laterality Modality Other 09/25/2024 11:1 4 AM EDT Narrative 09/25/2024 11:52 AM EDT Q3 Patient Name: Bryan Harris Procedure Date: 09/25/2024 11:14 AM Date of : 1950 Admit Type: Outpatient Age: 74 Gender: Male Note Status: Finalized Attending MD: Shay Dennis , , [id number] Procedure: Upper GI endoscopy Indications: Dysphagia Providers: [...] by the physician, the nurse and the credentialing assistant in the pre-procedure area in the endoscopy [...] the patient. Procedure Code(s): --- Professional --- 72298 Diagnosis Code(s): --- Professional --- K22.4 K44.9 K31.7 R13.10 CPT copyright 2020 [employer]. All rights reserved. Attending Participation: [...] See Comment mg/dL 05/19/2024 3:06 AM EST [facility] Comment: SYNOVIAL FLUIDS: Synovial fluid [...] document C49-A. RAJEEV Bui: Clinical Laboratory Standards [place]; 2007. Body Fluid Type (Chol) Pleural Cavity, Right 05/19/2024 3:06 AM EST [facility] Sterile Fluid/Body Fluid PLEURAL FLUID / Unknown Non Blood / Unknown 05/18/2024 12:52 PM EST 05/18/2024 11:34 PM EST us Louise Dogulas MD LABORATORY Final Result Performing Organization Address City/State/[facility] Co de Phone Number [facility] [address] [place] [address], * COLONOSCOPY (THERAPEUTIC) (04/28/2024 11:16 AM EST) Anatomical Region Laterality Modality Other 04/28/2024 11:1 6 AM EST Narrative 04/28/2024 11:59 AM EST [facility] Gastrointestinal Endoscopy Patient Name: Bryan Harris Procedure Date: 04/28/2024 11:16 AM Date of : 1950 Admit Type: Outpatient Age: 74 Room: [place] [address] Gender: Male Note Status: Finalized Attending MD: Vic Ponce MD, [id number] Procedure: Colonoscopy Indications: Chronic diarrhea Comorbidities Patient [...] physician, the nurse, the anesthesiologist and the credentialing assistant in the procedure room at 11:29 AM. [...] prior dose. Procedure Code(s): --- Professional --- 43196, Colonoscopy, flexible; with biopsy, single or multiple Diagnosis Code(s): --- Professional --- K52.9, Noninfective gastroenteritis and colitis, unspecified CPT copyright 2020 [employer]. All rights reserved. The codes documented in this report are preliminary and upon outpatient coder review may be revised to meet [...] Documents on File Type Date Recorded Patient Telesales Professional Expl anation Advance Directive(s) 11/12/2023 2:37 PM * Full Code (Latest Code Status on File) Date Activated Date Inactivated Comments 12/20/2023 10:18 PM 12/26/2023 9:02 PM Question Answer Comments Full Code Order Discussed With: Patient Care Teams Children'S Literature Professor Relationship Specialty [place] [address] [place] [address] PCP - General Family Medicine 12/29/23 Jere Sales MD [address] [address] Referring Gastroenterology 12/05/20 Calin Gotti DO [address] [place] [address] Internal Medicine 10/16/23
--- OUTSIDE RECORDS SUMMARY | 2024-12-25 13:23 | XMS_ITS | Encounter Summary ---
Author Organization [facility] Address [address] [place] [address] Care Team Providers Care Laundry Equipment Operator Name Role Phone Jere Sales MD Unavailable [phone] Calin Gotti DO Unavailable [phone] Jose Antonio Meyers MD Primary Care Provider [phone] Source Comments In the event this information is protected by the Federal Confidentiality of Alcohol and Drug AbusePatient Records regulations: The Federal rules restrict any use of the information to criminally investigate or prosecute any alcohol or drug abuse patient.[facility] Encounter Details Date Type Department Care Team (Late st Contact Info) Description 04/24/2024 Get Medical Advice Rheumatology [address] [place] [id number] Jailyn Mahoney MD [address] [place] [address] Willie Harris Social History Tobacco Use Types Packs/Day Years Used Date Smoking Tobacco: Never Smokeless Tobacco: Never Alcohol Use Standard Drinks/Week Comments Yes 0 (1 standard drink = 0.6 oz pure alcohol) socially, no drink since 06/2023 [facility] Utilities Answer Date Recorded In [...] is lower risk 5 12/11/2023 Data from: https://www.neighborhoodatlas.medicine.[facility].edu/. Last address used for calculation [address] [...] Description 01/08/2025 1:00 PM EDT Appointment Radiology [address] [place] [address] [place] [address] XR CHEST 2V FRONTAL/LAT 01/11/2025 9:30 AM EDT Office Visit Pulmonary Medicine [address] [place] [address] Triston Riggs MD [address] [place] [address] 4-6 weeks 01/26/2025 1:00 PM EDT [place] [address] [place], [place] [address] [place] [address] [place] [address] Follow-up 02/02/2025 9:30 AM EDT Hospital Encounter Angio [address] [place] [address] STAGE SET UP WORKER [address] [place] [address] Elevated alkaline phosphatase level [R74.8] 02/02/2025 9:30 AM EDT - 02/02/2025 11:20 AM EDT Surgery Angio [address] [facility] [place] [address] STAGE SET UP WORKER [address] [place] [address] TRANSCATHETER BIOPSY 05/21/2025 2:00 PM EST Office Visit Cardiology [address] [place] [address] [place] [address] [facility] [place] [address] 6 month follow up Scheduled Procedures Name [...] encounter Visit Diagnoses Diagnosis Hypokalemia- Primary Hypopotassemia Elevated alkaline phosphatase level Other nonspecific abnormal serum enzyme levels documented in this encounter Care Teams Laundry Equipment Operator Relationship Specialty Start [place] [address] [facility] [place] [address] PCP - General Family Medicine 12/29/23 Jere Sales MD [address] [address] Referring Gastroenterology 12/05/20 Calin Gotti DO [address] [place] [address] Internal Medicine 10/16/23 documented as of this encounter
--- OUTSIDE RECORDS SUMMARY | 2024-12-25 13:23 | XMS_ITS | Encounter Summary ---
Author Organization [facility] Address [address] [place] [address] Care Team Providers Care Maintainer Plant Name Role Phone Jere Sales MD Unavailable [phone] Calin Gotti DO Unavailable [phone] Jose Antonio Meyers MD Primary Care Provider [phone] Source Comments In the event this information is protected by the Federal Confidentiality of Alcohol and Drug AbusePatient Records regulations: The Federal rules restrict any use of the information to criminally investigate or prosecute any alcohol or drug abuse patient.[facility] Encounter Details Date Type Department Care Team (Late st Contact Info) Description 10/15/2024 Results Follow-Up Gastroenterology [address] [address] Xiomara Santoyo APRN.[place] [address] [place] [address] Social History Tobacco Use Types Packs/Day Years Used Date Smoking Tobacco: Never Smokeless Tobacco: Never Alcohol Use Standard Drinks/Week Comments Yes 0 (1 standard drink = 0.6 oz pure alcohol) socially, no drink since 06/2023 [facility] Utilities Answer Date Recorded In [...] lower risk 5 12/11/2023 Data from: https://www.neighborhoodatlas.medicine.[facility].edu/. Last address used for calculation [...] Description 01/08/2025 1:00 PM EDT Appointment Radiology [address] [place] [address] [place] [address] XR CHEST 2V FRONTAL/LAT 01/11/2025 9:30 AM EDT Office Visit Pulmonary Medicine [address] [place] [address] Triston Riggs MD [address] [place] [address] 4-6 weeks 01/26/2025 1:00 PM EDT [place] [address] [place], [place] [address] [place] [address] [place] [address] Follow-up 02/02/2025 9:30 AM EDT Hospital Encounter Angio [address] [place] [address] FLUX MIXER [address] [place] [address] Elevated alkaline phosphatase level [R74.8] 02/02/2025 9:30 AM EDT - 02/02/2025 11:20 AM EDT Surgery Angio [address] [place] [address] FLUX MIXER [address] [place] [address] TRANSCATHETER BIOPSY 05/21/2025 2:00 PM EST Office Visit Cardiology [address] [place] [address] [place] [address] [facility] [place] [address] 6 month follow up Scheduled Procedures Name Priority Associated Diagnoses Date/Ti wy TRANSCATHETER BIOPSY Elevated alkaline phosphatase level 02/02/2025 9:30 AM EDT documented as of this encounter Goals Goal Patient Goal Type Associated Problems Recent Progress Patient-Stated? Author Blood Pressure < 130/80 Blood Pressure 120/74( 025 10:15 PM EDT) No Sung Hartley MD documented as of this encounter Visit Diagnoses Not on filedocumented in this encounter Care Teams Maintainer Plant Relationship Specialty Start [place] [address] [place] [address] PCP - General Family Medicine 12/29/23 Jere Sales MD [address] [address] Referring Gastroenterology 12/05/20 Calin Gotti DO [address] [place] [address] Internal Medicine 10/16/23 documented as of this encounter
--- OUTSIDE RECORDS SUMMARY | 2024-12-25 13:23 | XMS_ITS | Encounter Summary ---
Author Organization [facility] Address [address] [place] [address] Care Team Providers Care Airbrush Artist Photography Name Role Phone Jere Sales MD Unavailable [phone] Calin Gotti DO Unavailable [phone] Jose Antonio Meyers MD Primary Care Provider [phone] Source Comments In the event this information is protected by the Federal Confidentiality of Alcohol and Drug AbusePatient Records regulations: The Federal rules restrict any use of the information to criminally investigate or prosecute any alcohol or drug abuse patient.[facility] Encounter Details Date Type Department Care Team (Late st Contact Info) Description 10/19/2024 Get Medical Advice Pulmonary Medicine [address] [place], [place] [phone] Katerina Pascual PA-C [address] [place] [address] Willie Harris 1950 Social History Tobacco Use Types Packs/Day Years Used Date Smoking Tobacco: Never Smokeless Tobacco: Never Alcohol Use Standard Drinks/Week Comments Yes 0 (1 standard drink = 0.6 oz pure alcohol) socially, no drink since 06/2023 [facility] Utilities Answer Date Recorded In [...] risk 5 12/11/2023 Data from: https://www.neighborhoodatlas.medicine.[facility].edu/. Last address used for calculation 2230 12/11/2023 [...] 01/08/2025 1:00 PM EDT Appointment Radiology [address] [place] [address] [place] [address] XR CHEST 2V FRONTAL/LAT 01/11/2025 9:30 AM EDT Office Visit Pulmonary Medicine [address] [place] [address] Triston Riggs MD [address] [place] [address] 4-6 weeks 01/26/2025 1:00 PM EDT [place] [address] [place] [address] [place] [address] [place] [address] Follow-up 02/02/2025 9:30 AM EDT Hospital Encounter Angio [address] [place] [address] SENIOR FUNCTIONAL ANALYST [address] [place] [address] Elevated alkaline phosphatase level [R74.8] 02/02/2025 9:30 AM EDT - 02/02/2025 11:20 AM EDT Surgery Angio [address] [place] [address] SENIOR FUNCTIONAL ANALYST [address] [place] [address] TRANSCATHETER BIOPSY 05/21/2025 2:00 PM EST Office Visit Cardiology [address] [place] [address] [place] [address] [facility] [place] [address] 6 month follow up Scheduled Procedures Name Priority Associated Diagnoses Date/Ti ny TRANSCATHETER BIOPSY Elevated alkaline phosphatase level 02/02/2025 9:30 AM EDT documented as of this encounter Goals Goal Patient Goal Type Associated Problems Recent Progress Patient-Stated? Author Blood Pressure < 130/80 Blood Pressure 120/74( 025 10:15 PM EDT) No Sung Hartley MD documented as of this encounter Visit Diagnoses Not on filedocumented in this encounter Care Teams Airbrush Artist Photography Relationship Specialty Start [place] [address] [facility] [place] [address] PCP - General Family Medicine 12/29/23 Jere Sales MD [address] [address] Referring Gastroenterology 12/05/20 Calin Gotti DO [address] [place] [address] Internal Medicine 10/16/23 documented as of this encounter
--- OUTSIDE RECORDS SUMMARY | 2024-12-25 13:23 | XMS_ITS | Encounter Summary ---
Author Organization [facility] Address [address] [place] [address] Care Team Providers Care Riding Silks Custodian Name Role Phone Jere Sales MD Unavailable [phone] Calin Gotti DO Unavailable [phone] Jose Antonio Meyers MD Primary Care Provider [phone] Source Comments In the event this information is protected by the Federal Confidentiality of Alcohol and Drug AbusePatient Records regulations: The Federal rules restrict any use of the information to criminally investigate or prosecute any alcohol or drug abuse patient.[facility] Encounter Details Date Type Department Care Team (Late st Contact Info) Description 10/31/2024 Results Follow-Up Gastroenterology [address] [address] Xiomara Santoyo APRN.[place] [id number] [place] [address] Social History Tobacco Use Types Packs/Day Years Used Date Smoking Tobacco: Never Smokeless Tobacco: Never Alcohol Use Standard Drinks/Week Comments Yes 0 (1 standard drink = 0.6 oz pure alcohol) socially, no drink since 06/2023 [facility] Utilities Answer Date Recorded In [...] risk 5 12/11/2023 Data from: https://www.neighborhoodatlas.medicine.[facility].edu/. Last address used for calculation 2230 12/11/2023 [...] Description 01/08/2025 1:00 PM EDT Appointment Radiology [address] [place] [address] [place] [address] XR CHEST 2V FRONTAL/LAT 01/11/2025 9:30 AM EDT Office Visit Pulmonary Medicine [address] [place] [address] Triston Riggs MD [address] [place] [address] 4-6 weeks 01/26/2025 1:00 PM EDT [place] [address] [place], [place] [address] [place] [address] [place] [address] Follow-up 02/02/2025 9:30 AM EDT Hospital Encounter Angio [address] [place] [address] [employer] [address] [place] [address] Elevated alkaline phosphatase level [R74.8] 02/02/2025 9:30 AM EDT - 02/02/2025 11:20 AM EDT Surgery Angio [address] [place] [address] [employer] [address] [place] [address] TRANSCATHETER BIOPSY 05/21/2025 2:00 PM EST Office Visit Cardiology [address] [place] [address] [place] [address] [facility] [place] [address] 6 month follow up Scheduled Procedures Name Priority Associated Diagnoses Date/Ti de TRANSCATHETER BIOPSY Elevated alkaline phosphatase level 02/02/2025 9:30 AM EDT documented as of this encounter Goals Goal Patient Goal Type Associated Problems Recent Progress Patient-Stated? Author Blood Pressure < 130/80 Blood Pressure 120/74( 025 10:15 PM EDT) No Sung Hartley MD documented as of this encounter Visit Diagnoses Not on filedocumented in this encounter Care Teams Riding Silks Custodian Relationship Specialty Start [place] [address] [place] [address] PCP - General Family Medicine 12/29/23 Jere Sales MD [address] [address] Referring Gastroenterology 12/05/20 Calin Gotti DO [address] [place] [address] Internal Medicine 10/16/23 documented as of this encounter
--- OUTSIDE RECORDS SUMMARY | 2024-12-25 13:23 | XMS_ITS | Encounter Summary ---
Author Organization [facility] Address [address] [place] [address] Care Team Providers Care Health Worker Name Role Phone Jere Sales MD Unavailable [phone] Calin Gotti DO Unavailable [phone] Jose Antonio Meyers MD Primary Care Provider [phone] Source Comments In the event this information is protected by the Federal Confidentiality of Alcohol and Drug AbusePatient Records regulations: The Federal rules restrict any use of the information to criminally investigate or prosecute any alcohol or drug abuse patient.[facility] Encounter Details Date Type Department Care Team (Late st Contact Info) Description 11/13/2024 Get Medical Advice Gastroenterology [address] [address] Provider, Migel Harris. 1950 Social History Tobacco [...] is lower risk 5 12/11/2023 Data from: https://www.neighborhoodatlas.medicine.[facility].edu/. Last address used for calculation [...] Description 01/08/2025 1:00 PM EDT Appointment Radiology [address] [place] [address] [place] [address] XR CHEST 2V FRONTAL/LAT 01/11/2025 9:30 AM EDT Office Visit Pulmonary Medicine [address] [place] [address] Triston Riggs MD [address] [place] [address] 4-6 weeks 01/26/2025 1:00 PM EDT [place] [address] [place] [address] [place] [address] [place] [address] Follow-up 02/02/2025 9:30 AM EDT Hospital Encounter Angio [address] [place] [address] [employer]ICER [address] [place] [address] Elevated alkaline phosphatase level [R74.8] 02/02/2025 9:30 AM EDT - 02/02/2025 11:20 AM EDT Surgery Angio [address] [place] [address] [employer] [address] [place] [address] TRANSCATHETER BIOPSY 05/21/2025 2:00 PM EST Office Visit Cardiology [address] [place] [address] [place] [address] [facility] [place] [address] 6 month follow up Scheduled Procedures Name [...] on filedocumented in this encounter Care Teams Health Worker Relationship Specialty [place] [address] [place] [address] PCP - General Family Medicine 12/29/23 Jere Sales MD [address] [address] Referring Gastroenterology 12/05/20 Calin Gotti DO [address] [place] [address] Internal Medicine 10/16/23 documented as of this encounter
--- OUTSIDE RECORDS SUMMARY | 2024-12-25 13:23 | XMS_ITS | Encounter Summary ---
Author Organization [facility] Address [address] [place] [address] Care Team Providers Care Physical Medicine Teacher Name Role Phone Jere Sales MD Unavailable [phone] Calin Gotti DO Unavailable [phone] Jose Antonio Meyers MD Primary Care Provider [phone] Source Comments In the event this information is protected by the Federal Confidentiality of Alcohol and Drug AbusePatient Records regulations: The Federal rules restrict any use of the information to criminally investigate or prosecute any alcohol or drug abuse patient.[facility] Encounter Details Date Type Department Care Team (Late st Contact Info) Description 10/15/2024 Results Follow-Up Gastroenterology [address] [address] Xiomara Santoyo APRN.[place] 8[address] [place] [address] Social History Tobacco Use Types Packs/Day Years Used Date Smoking Tobacco: Never Smokeless Tobacco: Never Alcohol Use Standard Drinks/Week Comments Yes 0 (1 standard drink = 0.6 oz pure alcohol) socially, no drink since 06/2023 [facility] Utilities Answer Date Recorded [...] 01/08/2025 1:00 PM EDT Appointment Radiology [address] [place] [address] [place] [address] XR CHEST 2V FRONTAL/LAT 01/11/2025 9:30 AM EDT Office Visit Pulmonary Medicine [address] [place] [address] Triston Riggs MD [address] [place] [address] 4-6 weeks 01/26/2025 1:00 PM EDT [place] [address] [address] [place], [place] [address] [place] [address] [place] [address] Follow-up 02/02/2025 9:30 AM EDT Hospital Encounter Angio [address] [place] [address] BULL BUCKER [address] [place] [address] Elevated alkaline phosphatase level [R74.8] 02/02/2025 9:30 AM EDT - 02/02/2025 11:20 AM EDT Surgery Angio [address] [place] [address] BULL BUCKER [address] [place] [address] TRANSCATHETER BIOPSY 05/21/2025 2:00 PM EST Office Visit Cardiology [address] [place] [address] [place] [address] [facility] [place] [address] 6 month follow up Scheduled Procedures Name Priority Associated Diagnoses Date/Ti nj TRANSCATHETER BIOPSY Elevated alkaline phosphatase level 02/02/2025 9:30 AM EDT documented as of this encounter Goals Goal Patient Goal Type Associated Problems Recent Progress Patient-Stated? Author Blood Pressure < 130/80 Blood Pressure 120/74( 025 10:15 PM EDT) No Sung Hartley MD documented as of this encounter Visit Diagnoses Not on filedocumented in this encounter Care Teams Physical Medicine Teacher Relationship Specialty Start [place] [address] [address] [place] [address] PCP - General Family Medicine 12/29/23 Jere Sales MD [address] [address] Referring Gastroenterology 12/05/20 Calin Gotti DO [address] [place] [address] Internal Medicine 10/16/23 documented as of this encounter
--- OUTSIDE RECORDS SUMMARY | 2024-12-25 13:23 | XMS_ITS | Encounter Summary ---
Author Organization [facility] Address [address] [place] [address] Care Team Providers Care Cash Surrender Calculator Name Role Phone Jere Sales MD Unavailable [phone] Calin Gotti DO Unavailable [phone] Jose Antonio Meyers MD Primary Care Provider [phone] Source Comments In the event this information is protected by the Federal Confidentiality of Alcohol and Drug AbusePatient Records regulations: The Federal rules restrict any use of the information to criminally investigate or prosecute any alcohol or drug abuse patient.[facility] Encounter Details Date Type Department Care Team (Late st Contact Info) Description 04/27/2024 GI Preprocedure Call [facility] [place] [address] [place] [address] Ronnie Haddad Jr., [address] [place] [address] Social History Tobacco Use Types Packs/Day Years Used Date Smoking Tobacco: Never Smokeless Tobacco: Never Alcohol Use Standard Drinks/Week Comments Yes 0 (1 standard drink = 0.6 oz pure alcohol) socially, no drink since 06/2023 [place] Utilities Answer Date Recorded In the past [...] is lower risk 5 12/11/2023 Data from: https://www.neighborhoodatlas.medicine.[facility].edu/. Last address used for calculation 22[address] [...] Description 01/08/2025 1:00 PM EDT Appointment Radiology [address] [place] [address] [place] [address] XR CHEST 2V FRONTAL/LAT 01/11/2025 9:30 AM EDT Office Visit Pulmonary Medicine [address] [place] [address] Triston Riggs MD [address] [place] [address] 4-6 weeks 01/26/2025 1:00 PM EDT [place] [address] [address] [place], [place] [address] [place] [address] [place] [address] Follow-up 02/02/2025 9:30 AM EDT Hospital Encounter Angio [address] [place] [address] BOWL TOPPER [address] [place] [address] Elevated alkaline phosphatase level [R74.8] 02/02/2025 9:30 AM EDT - 02/02/2025 11:20 AM EDT Surgery Angio [address] [place] [address] BOWL TOPPER [address] [place] [address] TRANSCATHETER BIOPSY 05/21/2025 2:00 PM EST Office Visit Cardiology [address] [place] [address] [place] [address] [facility] [place] [address] 6 month follow up Scheduled Procedures Name [...] filedocumented in this encounter Care Teams Cash Surrender Calculator Relationship Specialty Start [place] [address] [facility] [place] [address] PCP - General Family Medicine 12/29/23 Jere Sales MD [address] [address] Referring Gastroenterology 12/05/20 Calin Gotti DO [address] [place] [address] Internal Medicine 10/16/23 documented as of this encounter
--- OUTSIDE RECORDS SUMMARY | 2024-12-25 13:23 | XMS_ITS | Encounter Summary ---
Author Organization [facility] Address [address] [place] [address] Care Team Providers Care City Auditor Name Role Phone Jere Sales MD Unavailable [phone] Calin Gotti DO Unavailable [phone] Jose Antonio Meyers MD Primary Care Provider [phone] Source Comments In the event this information is protected by the Federal Confidentiality of Alcohol and Drug AbusePatient Records regulations: The Federal rules restrict any use of the information to criminally investigate or prosecute any alcohol or drug abuse patient.[facility] Encounter Details Date Type Department Care Team (Late st Contact Info) Description 11/17/2024 Patient Msg [facility] [address] [place], [place] [id number] Provider, [facility] Follow Up Appointment Social History Tobacco Use Types Packs/Day Years Used Date Smoking Tobacco: Never Smokeless Tobacco: Never Alcohol Use Standard Drinks/Week Comments Yes 0 (1 standard drink = 0.6 oz pure alcohol) socially, no drink since 06/2023 [facility] Utilities Answer Date Recorded In the [...] 5 12/11/2023 Data from: https://www.neighborhoodatlas.medicine.[facility].edu/. Last address used for calculation 22[address] [...] Description 01/08/2025 1:00 PM EDT Appointment Radiology [address] [place] [address] [place] [address] XR CHEST 2V FRONTAL/LAT 01/11/2025 9:30 AM EDT Office Visit Pulmonary Medicine [address] [place] [address] Triston Riggs MD [address] [place], [place] [address] 4-6 weeks 01/26/2025 1:00 PM EDT [place] [address] [place] [address] [place] [address] [place] [address] Follow-up 02/02/2025 9:30 AM EDT Hospital Encounter Angio [address] [place] [address] UNLEAVENED DOUGH MIXER [address] [facility] [place] [address] Elevated alkaline phosphatase level [R74.8] 02/02/2025 9:30 AM EDT - 02/02/2025 11:20 AM EDT Surgery Angio [address] [place] [address] UNLEAVENED DOUGH MIXER [address] [facility] [place] [address] TRANSCATHETER BIOPSY 05/21/2025 2:00 PM EST Office Visit Cardiology [address] [place] [address] [place] [address] [place] [address] 6 month follow up Scheduled Procedures Name [...] on filedocumented in this encounter Care Teams City Auditor Relationship Specialty Start [place] [address] [facility] [place] [address] PCP - General Family Medicine 12/29/23 Jere Sales MD [address] [address] Referring Gastroenterology 12/05/20 Calin Gotti DO [address] [place] [address] Internal Medicine 10/16/23 documented as of this encounter
[2024-12-25 13:26] VITALS: BP 125/81; PULSE 91; TEMP 36.9; O2SAT 97; BMI 24.7
--- NOTE | 2024-12-25 13:33 | ED.GENADUL1 ---
HPI HPI - General Adult General Chief complaint: Extremity Problem, Nontraumatic Stated complaint: LOWER EXTREMITY REDNESS Time Seen by Provider: 12/25/24 13:18 Source: patient Mode of arrival: walk-in Limitations: no limitations History of Present Illness HPI narrative: The patient is a 74-year-old male who presents to the emergency department today for evaluation of concerns for redness and swelling to his left leg that began yesterday. Patient denies any paresthesias, weakness, loss of movement to the affected extremity. No fever/chills or nausea/vomiting. He endorses lymphedema to his lower extremities and states he was seen by vascular surgery at [facility] in the past 2 weeks and had normal venous and arterial flow studies. He mentions he has had lymphedema wraps in the recent past. He is not diabetic. Related Data Home Medications ?Medication ?Instructions ?Recorded ?Confirmed allopurinol 300 mg tablet 300 mg PO DAILY 08/15/23 12/25/24 atorvastatin 10 mg tablet 10 mg PO QPM 08/15/23 12/25/24 Held on 12/25/24. Instructions: Doctor's Order ascorbic acid (vitamin C) 500 mg 500 mg PO BID 08/30/24 12/25/24 chewable tablet (C-500) dextromethorphan-guaifenesin 30 1 tab PO Q12H 08/30/24 12/25/24 mg-600 mg tablet extended [id number] hr (Mucinex DM) loratadine 10 mg tablet (Loradamed) 10 mg PO DAILY 08/30/24 12/25/24 metolazone 5 mg tablet 5 mg PO QDAY 08/30/24 12/25/24 uadhfuemcoyc-ikgpagvk-tqlqxd 1 tab PO DAILY 08/30/24 12/25/24 tablet (Milltrium Senior tablet) pantoprazole 40 mg granules 40 mg PO BID 08/30/24 12/25/24 delayed-release for susp in packet (Protonix) quinine sulfate 324 mg capsule 324 mg PO Q12H 08/30/24 12/25/24 torsemide 100 mg tablet 100 mg PO QDAY 08/30/24 12/25/24 famotidine 20 mg tablet 20 mg PO Q12H 12/25/24 12/25/24 mirabegron 50 mg tablet,extended 50 mg PO QPM 12/25/24 12/25/24 release 24 hr spironolactone 25 mg tablet 25 mg PO QAM 12/25/24 12/25/24 sucralfate 1 gram tablet 1 g PO ACHS 12/25/24 12/25/24 Previous Rx's ?Medication ?Instructions ?Recorded potassium chloride 20 mEq 40 meq (2 x 20 mEq) PO BID #0 tabs 08/31/24 tablet,extended release(part/cryst) cephalexin 500 mg capsule 500 mg PO BID 7 days #14 caps 12/25/24 Allergies Allergy/AdvReac Type Severity Reaction Status Date / Time tramadol Allergy Severe Hallucinati Verified 12/25/24 13:26 ng Opioid HPI Opioid Management Most Recent Opioid Data: Last Pain Scale 0 08/31/24, 15:47 Last ORT Total Score 0 08/30/24, 21:02 Last ORT Risk Category Low Risk 08/30/24, 21:02 Review of Systems ROS Status of ROS 10 or more systems reviewed and unremarkable except as noted in history and below [facility] Medical History (Updated 12/25/24 @ 13:33 by Aldair Coombs NP) Leg edema ?R60.0 - Localized edema (ICD-10) Pleural effusion, right ?J90 - Pleural effusion, not elsewhere classified (ICD-10) Gout ?M10.9 - Gout, unspecified (ICD-10) Hyperlipidemia ?E78.5 - Hyperlipidemia, unspecified (ICD-10) Recurrent right pleural effusion ?J90 - Pleural effusion, not elsewhere classified (ICD-10) Right hand fracture ?S62.91XA - Unspecified fracture of right wrist and hand, initial encounter for closed fracture (ICD-10) Lymphocytic colitis ?K52.832 - Lymphocytic colitis (ICD-10) Surgical History Hx of knee surgery ?Z98.890 - Other specified postprocedural states (ICD-10) History of cataract surgery ?Z98.49 - Cataract extraction status, unspecified eye (ICD-10) Family History Grandmother Family history of diabetes mellitus Father Family history of hypertension Family history of myocardial infarction Brother Family history of hypertension Social History Within the past year, how often did you have a drink containing alcohol: never Score interpretation: A score less than 4 is consistent with normal alcohol consumption. Smoking status: Never smoker Non-prescribed substance use: denies use Highest level of school completed/degree received: Bachelor's degree Are you now , , , , never or living with a partner: Little interest or pleasure in doing things: not at all Feeling down, depressed, or hopeless: not at all Feel stressed/tense/nervous/anxious/difficulty sleeping: to some extent Do you think of yourself as: straight/heterosexual Gender Identity: male Exam Narrative Exam Narrative: Constituational: Awake/ alert, no apparent distress, well hydrated HENMT: normocephalic, external ears normal, moist oral mucous membranes and oropharynx normal Eyes: EOMI and conjunctivae normal Neck: ROM intact Chest: inspection of chest normal Respiratory: Normal respiratory effort, clear to auscultation bilaterally Cardio: regular rate and regular rhythm GI: soft to palpation and non-tender Back: nontender MSK: + Erythema anterior medial aspect of L lower leg extending through the ankle, +2 pitting edema to B/L LE L slightly> R, ROM intact, +NVI Skin: + Erythema L lower leg as above, no rashes or petechiae Neuro: no focal deficits Psych: mental status grossly normal Constitutional Vital Signs, click to edit/add: Last Vital Signs Temp 98.4 F 12/25/24 13:26 Pulse 91 H 12/25/24 13:26 Resp 18 12/25/24 13:26 BP 125/81 12/25/24 13:26 Pulse Ox 97 12/25/24 13:26 O2 Del Method Room Air 12/25/24 13:26 Course Vital Signs Vital signs: Vital Signs Temperature 98.4 F 12/25/24 13:26 Pulse Rate 91 H 12/25/24 13:26 Respiratory Rate 18 12/25/24 13:26 Blood Pressure 125/81 12/25/24 13:26 Pulse Oximetry 97 12/25/24 13:26 Oxygen Delivery Method Room Air 12/25/24 13:26 Temperature 98.4 F 12/25/24 13:26 Pulse Rate 91 H 12/25/24 13:26 Respiratory Rate 18 12/25/24 13:26 Blood Pressure 125/81 12/25/24 13:26 Pulse Oximetry 97 12/25/24 13:26 Oxygen Delivery Method Room Air 12/25/24 13:26 Medical Decision Making MDM Narrative Medical decision making narrative: The patient is a well-appearing 74-year-old male who presented to the emergency department today for evaluation concerns for left lower leg redness and some concern for increased swelling. Initial examination patient with clinical evidence consistent with cellulitis to the L lower leg extending through the ankle. Otherwise no concerning neurovascular or motor findings on exam. Low clinical suspicion for VTE with negative Wells score. Likely no chest pain, shortness of breath, dizziness or syncope. Patient does seem a little volume expanded on exam however compensated and reports edema to his lower extremities to overall be stable. The patient has been seen by vascular surgery in the past 2 weeks at [facility] for reported lymphedema and has had no reported peripheral vascular disease per the patient's. Discussed these findings with the patient and his who was present at the bedside including recommendations for supportive care for cellulitis. Discussed consideration for venous Doppler to definitively rule out DVT as patient's home health nurse did express concerns for DVT which was what prompted patient additionally to seek attention in the ER today. Both the patient and his would like to hold off on any DVT workup at this time and treat supportively for cellulitis. Patient does apparently a family member of Dr. Lorenz and did speak with Dr. Lorenz on the 's personal phone whom additionally is agreeable with the plan for supportive measures for cellulitis and to discharge home with Keflex. Advised on follow-up with patient's primary care provider for reevaluation. Discussed signs and symptoms of any worsening condition and when to consider reevaluation by the emergency department. Patient verbalized an understanding of this and is agreeable with the plan to be discharged home. Medical Records Medical records reviewed: Yes I reviewed the patient's medical records Discharge Plan Discharge Chief Complaint: Extremity Problem, Nontraumatic Clinical Impression: Cellulitis of left leg Patient Disposition: Home, Self-Care Prescriptions / Home Meds: New cephalexin 500 mg capsule 500 mg PO BID 7 Days Qty: 14 0RF No Action allopurinol 300 mg tablet 300 mg PO DAILY atorvastatin 10 mg tablet 10 mg PO QPM metolazone 5 mg tablet 5 mg PO QDAY quinine sulfate 324 mg capsule 324 mg PO Q12H pantoprazole [Protonix] [address] for susp in packet 40 mg PO BID torsemide 100 mg tablet 100 mg PO QDAY Udegnhm-Xhagksgjq-Wzbe Complex 167 mg calcium- 83 mg-5 mg capsule 1 cap PO BID ascorbic acid (vitamin C) [C-500] 500 mg tablet,chewable 500 mg PO BID Milltrium Senior Tablet 1 tab PO DAILY Mucinex DM 30-600 mg tablet extended release 12 hr 1 tab PO Q12H loratadine [Loradamed] 10 mg tablet 10 mg PO DAILY potassium chloride 20 mEq tablet,ER particles/crystals 40 meq PO BID Qty: 0 0RF sucralfate 1 gram tablet spironolactone 25 mg tablet famotidine 20 mg tablet mirabegron 50 mg tablet extended release 24 hr PO Print Language: Azeri Instructions: Cellulitis (ED) Additional Instructions: Take antibiotics as prescribed. Follow-up with your primary care provider next week for reevaluation as discussed. May return to the ER with any new or worsening symptoms/concerns. Referrals: Dawit Lorenz DO [Primary Care Provider, Internal Medicine] - 1 week
== END 2024-12-25 14:03 | disposition home or self-care (01) ==
PROVIDERS: Emergency Provider Emergency Medicine; PCP Internal Medicine
DX: L03.116 Cellulitis of left lower limb (principal); L53.8 Other specified erythematous conditions; R60.0 Localized edema
CPT/HCPCS: 99283

== ENCOUNTER 2025-04-02 09:24 | Inpatient (IN) | payer MEDICARE, SELFPAY ==
--- OUTSIDE RECORDS SUMMARY | 2024-01-08 05:30 | XMS_ITS ---
Author Organization [facility] [place] Address [address] [place] [address] Care Team Providers Care Title I Math Tutor Name Role Phone Dawit Lorenz DO Primary Care Provider Calin Espino [phone] REASON FOR VISIT 3MO-PLEURAL EFFUSION Encounters Encounter Location Date Provider Diagnosis Pulmonary Medicine [address] [address] 01/08/2024 Calin Gotti Plan Of Treatment No Information Progress Notes * Bryan HARRIS EDOB:[birth year] (75 yo M)Acc No.[id number]:01/08/2024 UNLOCKED PROGRESS NOTE Follow Up Patient: Reinaldo DUNLAP Bryan Pepe Provider: Shahzad Gotti DO :1950 A ge:73 Y S ex:Male Date:01/08/2024 Address:[facility] [address], [id number] Pcp:Dawit Lorenz DO Subjective: * Chief Complaints: * 1 . 3MO-PLEURAL EFFUSION. * Medical History: Objective: * Vitals: Assessment: Plan: * Treatment: * * Electronic signature of Kanchan Gotti DO on 04/02/2025 at 10:10 AM EDT Sign off status: Pending Visit Status: R /S (Rescheduled) * Provider: Shahzad Gotti DO Date: 01/08/2024 Generated for Madeleine rehman/Alfredo/eTransmitting on: 1 10:10 AM EDT
--- OUTSIDE RECORDS SUMMARY | 2024-07-20 18:00 | XMS_ITS | Encounter Summary ---
Author Organization [facility] Address [address] [place] [address] Care Team Providers Care Dry Kiln Loader Name Role Phone Jere Sales MD Unavailable [phone] Calin Gotti DO Unavailable [phone] Jose Antonio Meyers MD Primary Care Provider [phone] Source Comments In the event this information is protected by the Federal Confidentiality of Alcohol and Drug AbusePatient Records regulations: The Federal rules restrict any use of the information to criminally investigate or prosecute any alcohol or drug abuse patient.[facility] Reason for Visit * Auth/Cert (Routine) Specialty Diagnoses / Procedures Referred By Contac t Referred To Contact ADMITTING Diagnoses 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] Procedures [facility] INCL FLUOR GDNCE DX W/CELL WASHG SPX BRONCHOSCOPY FLEXIBLE ADULT Admitting [address] [place] [address] Referral ID Status Reason Start Date Expiration Date Visits Re quested Visits Authorized [id number] 1 1 Encounter Details Date Type Department Care Team (Latest Contact Info) Description 07/20/2024 5:00 PM [facility] Hospital Encounter Admitting [address] [place] [address] Bryn Andrea MD [address] [place] [address] 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 No 11/21/2023 PHQ-2 Answer Date Recorded Score (Questions 1 & 2) 0 01/15/20 24 Hunger Vital Sign Answer Date Recorded Within [...] place to sleep or slept in a mcfp (including now)? No 11/21/2023 Area Deprivation Index Answer Date Hari rded National Score (1-100), lower number is lower ri sk 68 12/11/2023 State Score (1-10), lower number is lower risk 5 12/11/2023 Data from: https://www.neighborhoodatlas.[facility]/. Last address used for calculation 2230 12/11/2023 Sex and Gender Information Value Date Recorded Sex Assigned at Male 01/07/2025 12:44 PM EDT Legal Sex Male 12:24 PM EDT Gender Identity Male 01/07/2025 12:44 PM EDT Sexual Orientation Not on file documented as [...] Outpatient PROCEDURE: Right Thoracentesis with Ultrasound guidance COMPOUNDING PHARMACY TECHNICIAN: Roseann London MD SALES LEAD: Reza Thompson (resident), REFERRING PHYSICIAN/SERVICE Dr. Riggs [...] Intrapleural pressures not measured. PROCEDURE END TIME: 112 PROCEDURE TERMINATED DUE TO: No further drainage [...] a teaching physician. Roseann Rosario MD Pager [phone] September 08, 2024 12:45 PM documented in this encounter Plan of Treatment Upcoming Encounters Date Type Department Care Team (Late st Contact Info) Description 04/05/2025 1:30 PM EDT Appointment Gastroenterology [address] [address] Patrice Frost MD [address] [place] [address] Esophageal dysphagia [R13.19] 05/12/2025 8:25 AM EST Office Visit Gastroenterology [address] [place] [address] Luis Valentine MD [address] [place], [place] [id number] Araseli Wall Reffered 05/12/2025 11:45 AM EST [place] [address] [facility] [place] [address] [place] [address] [facility] [address] Follow-up 05/21/2025 2:00 PM EST Office Visit Cardiology [address] [place] [address] [place] [address] [place] [address] 6 month follow up documented as of this encounter Goals Goal Patient Goal Type Associated Problems Recent Progress Patient-Stated? Author Blood Pressure < 130/80 Blood Pressure 128/82(2024 12:30 PM EDT) Sung Farrell MD documented as of this encounter Procedures Procedure Name Priority Date/Time Associated Diagnosis Comments PROTEIN BFL Routine 07/20/2024 1:30 PM EST Pleural effusion LDH BODY FLUID Routine 07/20/2024 1:30 PM EST Pleural effusion ALBUMIN BFL Routine 07/20/2024 1:30 PM EST Pleural effusion [facility] INCL FLUOR GDNCE DX W/CELL WASHG SPX 07/20/2024 12:00 PM EST Bronchiolar disease documented in this encounter Results * PROTEIN, BODY FLUID (07/20/2024 1:30 PM EST) Protein, Body Fluid 2.2 See Comment g/dL 07/20/2024 6:39 PM EST [facility] Comment: Serous fluids: Effusions are [...] document C49A. RAJEEV Bui: Clinical Laboratory Standards [place]: 2007. Fluid, Thoracentesis PLEURAL FLUID / Unknown 07/20/2024 1:30 PM EST 07/20/2024 5:01 PM EST us Bryn Andrea MD LABORATORY Final Result [facility] 9500 [facility] Desk [place] [id number], * LACTATE DEHYDROGENASE, BODY FLUID (07/20/2024 1:30 PM EST) LD,Body Fluid 167 See Comment U/L 07/20/2024 6:39 PM EST [facility] Comment: Pleural fluids: Pleural fluid [...] document C49A. RAJEEV Bui: Clinical Laboratory Standards [place]: 2007. Reference: 2. Rafael STARK, Fei Doyle. [...] us Bryn Andrea MD LABORATORY Final Result [facility] [address] [address], [place] * ALBUMIN, BODY FLUID (07/20/2024 1:30 PM EST) Albumin, Body Fluid 1.4 See Comment g/dL 07/20/2024 6:39 PM EST [facility] Comment: Body Fluid Albumin may [...] document C49A. RAJEEV Bui: Clinical Laboratory Standards [place]: 2007. 2. Dionicio SERNA. Serum to ascites albumin gradient. UpToDate. 2015. Accessed on September 28, 2015. Body Fluid Type (Albumin) Pleural Cavity, Right 07/20/2024 6:39 PM EST [facility] Comment:recurrent pleual eff usion on right Fluid, Thoracentesis PLEURAL FLUID / Unknown 07/20/2024 1:30 PM EST 07/20/2024 5:01 PM EST us Bryn Andrea MD LABORATORY Final Result [facility] [address] [address], documented in this encounter Visit Diagnoses Diagnosis Pleural effusion Unspecified pleural effusion documented in this encounter Care Teams Dry Kiln Loader Relationship Specialty Start [place] [address] [place] [address] PCP - General Family Medicine 12/29/23 Jere Sales MD [address] [address] Referring Gastroenterology 12/05/20 Calin Gotti DO [address] [place] [address] Internal Medicine 10/16/23 documented as of this encounter
--- OUTSIDE RECORDS SUMMARY | 2025-03-24 09:38 | XMS_ITS | Encounter Summary ---
Author Organization [facility] Address [address] [place] [address] Care Team Providers Care Data Analyst Etl Developer Name Role Phone Jere Sales MD Unavailable [phone] Calin Gotti DO Unavailable [phone] Jose Antonio Meyers MD Primary Care Provider [phone] Source Comments In the event this information is protected by the Federal Confidentiality of Alcohol and Drug AbusePatient Records regulations: The Federal rules restrict any use of the information to criminally investigate or prosecute any alcohol or drug abuse patient.[facility] Reason for Referral * Outpatient Procedure (Routine) - Closed Specialty Diagnoses / Procedures Referred By Contac t Referred To Contact [facility] Diagnoses Esophageal dysmotility Procedures EGD - THERAPEUTIC, EUS, OR TUBE INTERVENTIONS ESOPHAGOGASTRODUODENOSC OPY TRANSORAL DIAGNOSTIC Sue Terrell MD [address] [place] [address] Phone: tel: fax: [facility] [place] [address] Referral ID Status Reason Start Date Expiration Date V isits Requested Visits Authorized [id number] Closed Auto-Generate d Referral 03/18/2025 06/16/2025 1 1 Reason for Visit * Outpatient Procedure (Routine) - Closed Specialty Diagnoses / Procedures Referred By Contac t Referred To Contact [facility] Diagnoses Esophageal dysmotility Procedures EGD - THERAPEUTIC, EUS, OR TUBE INTERVENTIONS ESOPHAGOGASTRODUODENOSC OPY TRANSORAL DIAGNOSTIC Sue Terrell MD [address] [place] [address] Phone: tel: fax: [facility] [address] [place] [address] Referral ID Status Reason Start Date Expiration Date V isits Requested Visits Authorized [id number] Closed Auto-Generate d Referral 03/18/2025 06/16/2025 1 1 Encounter Details Date Type Department Care Team (Latest Contact Info) Description 03/24/2025 9:38 AM EDT - 03/24/2025 11:59 PM EDT Hospital Encounter Gastroenterology [address] [place] [address] Aure Giraldo MD [address] [place] [address] Esophageal dysmotility [K22.4] Discharge Disposition: Home Social History Tobacco Use Types Packs/Day Years Used Date Smoking Tobacco: Never Smokeless Tobacco: Never Alcohol Use Standard Drinks/Week Comments Yes 0 (1 standard drink = 0.6 oz pure alcohol) socially, no drink since 06/2023 [facility] Utilities Answer Date Recorded In the past [address] [facility] [employer], gas, oil, or water [employer] threatened to shut off services in [...] risk 5 12/11/2023 Data from: https://www.neighborhoodatlas.medicine.[facility].edu/. Last address used for calculation 2230 12/11/2023 Sex and Gender Information Value Date Recorded Sex Assigned at Male 01/07/2025 12:44 PM EDT Legal Sex Male 12:24 PM EDT Gender Identity Male 01/07/2025 12:44 PM EDT Sexual Orientation Not on file documented as of this encounter Last Filed Vital Signs Vital Sign Reading Time Taken Comments Blood Pressure 128/82 03/24/2025 12:30 PM EDT Pulse 86 03/24/2025 12:30 PM EDT Temperature 35.8 C (96.4 F) 03/24/2025 10:53 AM EDT Respiratory Rate 18 03/24/2025 12:30 PM EDT Oxygen Saturation 97% 03/24/2025 12:30 PM EDT Inhaled Oxygen Concentration - - Weight 88.5 kg (195 lb) 03/24/2025 10:53 AM EDT Height 182.9 cm (6') 03/24/2025 10:53 AM EDT Body Mass Index 26.45 03/24/2025 10:53 AM EDT documented in this encounter Functional [...] this encounter Medications at Time of Discharge amoxicillin-clavul anate potassium (AUGMENTIN) 875-125 mg per tablet Take 1 tablet by mouth every 12 hours. torsemide (DEMADEX) 100 mg tabletIndications: Recurrent 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,Anasarca Take 0.5 tablets by mouth once daily. 90 tablet 1 03/09/[address] (PROTONIX) 40 mg tablet Take 1 tablet by mouth once daily. 02/22/2025 famotidine (PEPCID) 20 mg tablet Take 20 mg by mouth daily at bedtime. 02/22/2025 quiNINE 324 mg capsuleIndications :Cramp and spasm Take 1 capsule by mouth two times a day. 180 capsule 01/26/2025 mirabegron (MYRBETRIQ) 50 mg Ti36Twyviegipyp:Ur ge incontinence Take 1 tablet by mouth every evening. 90 tablet 1 01/26/2025 atorvastatin (LIPITOR) 10 mg tablet Take 10 mg by mouth once daily. ascorbic acid, vitamin C, (VITAMIN C) 500 mg tablet Take 1,000 mg by mouth once daily. multivit-min/abraham us fumarate (MULTI VITAMIN ORAL) Take 1 tablet by mouth once daily. guaifenesin/dextro methorphan (MUCINEX DM ORAL) Take by mouth two times a day. loratadine (CLARITIN) 10 mg tablet Take 10 mg by mouth once daily. calcium xyd-zqj-K1-Zn-copyright manager- kian 250 mg-40 mg- 125 unit-3.75mg tab Take by mouth. allopurinol (ZYLOPRIM) 300 mg tablet Take 300 mg by mouth once daily. 10/21/2020 documented as of this encounter H&P Notes * Ludwig Kirkland MD - 03/24/2025 11:00 AM EDT HISTORY AND PHYSICAL Bryan Harris, 75 year old male Current history and physical on file: Yes Is a new History and Physical required for today's visit? Yes Indication for procedure: Dysphagia PROCEDURE(S) SCHEDULED FOR: Dilation (any means), treatment of bleeding (any means) based on clinical findings and EGD (Esophagogastroduodenoscopy) with or without biopsies, [...] non-tender, no masses or organomegaly. Sedation Plan: Moderate Additional Comments: None Ludwig Kirkland MD documented in this encounter Nursing Notes * Johnson Granger RN - 03/24/2025 12:27 PM EDT AMBULATORY PATIENT EDUCATION NOTE TOPIC: GI PROCEDURES: Esophagogastroduodenoscopy(EGD) with or without biopies based on clinical findings, removal of polyps or lesions READINESS TO LEARN INSTRUCTION PROVIDED TO: Patient, readness to learn accessed prior to procedure COGNITIVE ABILITY: Alert and oriented PTED MOTIVATION TO LEARN: Interested FAMILY SUPPORT: Moderate - Family present but overwhelmed IPATIENT LEARNS BEST BY: Individual Instruction FACTORS AFFECTING LEARNING: None PHYSICAL LIMITATIONS AFFECTING LEARNING: None LEARNING RESPONSE METHOD OF INSTRUCTION: Individual instruction PATIENT / FAMILY RESPONSE: Verbalizes understanding of: WORSENING CONDITION- Signs and symptoms of aworsening condition that warrant a call to the physician FOLLOW-UP PLAN: Complete - No need for follow-up SUPPLEMENTAL MATERIAL: Procedure Discharge Instructions REFERRAL (RECOMMENDATION): None Electronically Signed By: Johnson Granger RN * Johnson Granger RN - 03/24/2025 10:44 AM EDT PRE OP LEARNING ASSESSMENT PROCEDURE/SURGERY: GI PROCEDURES: EGD READINESS TO LEARN COGNITIVE ABILITY: Alert and oriented MOTIVATION TO LEARN: Interested FAMILY SUPPORT: Moderate - Family present but overwhelmed PATIENT LEARNS BEST BY: Individual Instruction FACTORS AFFECTING LEARNING: None PHYSICAL LIMITATIONS AFFECTING LEARNING: None Electronically Signed By: Johnson Granger RN In Department: GASTROENTEROLOGY documented in this encounter Plan of Treatment Upcoming Encounters Date Type Department Care Team (Late st Contact Info) Description 04/05/2025 1:30 PM EDT Appointment Gastroenterology [address] [place] [address] Patrice Frost MD [address] [place] [address] Esophageal dysphagia [R13.19] 05/12/2025 8:25 AM EST Office Visit Gastroenterology [address] [address] Luis Valentine MD [address] [place] [address] Araseli Wall Reffered 05/12/2025 11:45 AM EST [place] [address] [facility] [place] [address] [place] [address] [facility] [address] Follow-up 05/21/2025 2:00 PM EST Office Visit Cardiology [address] [place] [address] [place] [address] [facility] [place] [address] 6 month follow up documented as of this encounter Goals Goal Patient Goal Type Associated Problems Recent Progress Patient-Stated? Author Blood Pressure < 130/80 Blood Pressure 128/82(2024 12:30 PM EDT) Sung Farrell MD documented as of this encounter Procedures Procedure Name Priority Date/Time Associated Diagnosis Comments EGD - THERAPEUTIC, EUS, OR TUBE INTERVENTIONS Routine 03/24/2025 11:48 AM EDT Esophageal dysmotility documented in this encounter Results * EGD - THERAPEUTIC, EUS, OR TUBE INTERVENTIONS (03/24/2025 11:48 AM EDT) Anatomical Region Laterality Modality Other 03/24/2025 11:4 8 AM EDT Narrative 03/24/2025 12:15 PM EDT A31 Gastrointestinal Endoscopy Patient Name: Bryan Harris Procedure Date: 03/24/2025 11:48 AM Date of : 1950 Admit Type: Outpatient Age: 75 Room: [place] [address] Gender: Male Note Status: Finalized Attending MD: Aure Giraldo MD, [id number] Procedure: Upper GI endoscopy Indications: Dysphagia Providers: Aure Giraldo MD, Ludwig Kirkland MD (Fellow) Patient Profile: This is a 75 year old male. Refer to note in patient chart for documentation of history and physical. Referring Physician: Sue Terrell MD (Referring MD) Medicines: Fentanyl 50 micrograms IV, Benzocaine spray, Remimazolam Total Dose 7.5 mg IV Complications: No immediate complications. Requesting Provider: Procedure: Pre-Anesthesia Assessment: - Prior to the procedure, a History and Physical was performed, and patient medications and allergies were reviewed. The patient's tolerance of previous anesthesia was also reviewed. The risks and benefits of the procedure and the sedation options and risks were discussed with the patient. All questions were answered, and informed consent was obtained. Prior Anticoagulants: The patient has taken no anticoagulant or antiplatelet agents. ASA Grade Assessment: II - A patient with mild systemic disease. After reviewing the risks and benefits, the patient was deemed in satisfactory condition to undergo the procedure. After obtaining informed consent, the endoscope was passed under direct vision. Throughout the procedure, the patient's blood pressure, pulse, and oxygen saturations were monitored continuously. The Endoscope was introduced through the mouth, and advanced to the second part of duodenum. The upper GI endoscopy was accomplished without difficulty. The patient tolerated the procedure well. Moderate Sedation: The administration of moderate sedation was initiated at 11:55. Moderate (conscious) sedation was administered by the nurse and supervised by the endoscopist. The patient's oxygen saturation, heart rate, blood pressure and response to care were monitored. Findings: Esophagogastric landmarks were identified: the Z-line was found at 37 cm, the upper extent of the gastric folds was found at 37 cm and the site of hiatal narrowing was found at 41 cm from the incisors. Large (> 5 mm) varices were found in the mid esophagus. A guidewire was placed and the scope was withdrawn. Dilation was performed in the entire esophagus with a Savary dilator with no resistance at 18 mm. The dilation site was examined following endoscope reinsertion and showed no change. Portal hypertensive gastropathy was found in the gastric antrum. Endo placed manometry The exam was otherwise without abnormality. Impression: - Esophagogastric landmarks identified. - Large (> 5 mm) esophageal varices. Non bleeding and no concerning stigmata. visualized pre and post dilation. Banding not performed as the purpose of the endoscopy was to place manometry and would not be able to do that after banding. - Portal hypertensive gastropathy. Non bleeding - The examination was otherwise normal. - Dilation performed in the entire esophagus: 18 mm - Endo placed manometry - No specimens collected. Estimated Blood Loss: Estimated blood loss: none. Recommendation: - Discharge patient to home. - Resume previous diet. - Continue present medications. - Return to GI and hepatology clinic to discuss varices and dysphagia. - Patient has a contact number available for emergencies. The signs and symptoms of potential delayed complications were discussed with the patient. Return to normal activities tomorrow. Written discharge instructions were provided to the patient. Procedure Code(s): --- Professional --- 41965, Esophagogastroduodenoscopy, flexible, transoral; with insertion of guide wire followed by passage of dilator(s) through esophagus over guide wire Diagnosis Code(s): --- Professional --- I85.00, Esophageal varices without bleeding K76.6, Portal hypertension K31.89, Other diseases of stomach and duodenum R13.10, Dysphagia, unspecified CPT copyright 2020 [employer]. All rights reserved. The codes documented in this report are preliminary and upon invoice coder review may be revised to meet current compliance requirements. Attending Participation: I was present and participated during the entire procedure, including non-mittal portions, and during the administration and monitoring of Moderate Sedation. Scope In: 11:56:45 AM Scope Out: 12:05:06 PM MD Aure Yuen MD 03/24/2025 12:12:42 PM This report has been signed electronically by Aure Giraldo MD Number of Addenda: 0 Note Initiated On: 03/24/2025 11:48 AM Sue Terrell MD [facility] Final Result documented in this encounter Visit Diagnoses Diagnosis Esophageal dysmotility Dyskinesia of esophagus documented in this encounter Administered Medications Inactive Administered Medications - up to 3 most recent administrations Medication Order MAR Action Action Date Dose Rate Site benzocaine 20% (TOPEX) TOPICAL, X (OR/PROCEDURE) PRN, Starting on Sat03/24/25 at 1155, Until Sat03/24/25 at 1155, Intraprocedure Given 03/24/2025 11:55 AM EDT 1 spray fentaNYL 50 mcg/mL injection (SUBLIMAZE) INTRAVENOUS, X (OR/PROCEDURE) PRN, Starting on Sat03/24/25 at 1155, Until Sat03/24/25 at 1200, Intraprocedure Given 03/24/2025 12:00 PM EDT 25 mcg Given 03/24/2025 11:55 AM EDT 25 mcg remimazolam injection (BYFAVO) INTRAVENOUS, X (OR/PROCEDURE) PRN, Starting on Sat03/24/25 at 1155, Until Sat03/24/25 at 1200, Intraprocedure Given 03/24/2025 12:00 PM EDT 2.5 mg Given 03/24/2025 11:55 AM EDT 5 mg documented in this encounter Care Teams Data Analyst Etl Developer Relationship Specialty Start [place] [address] [place] [address] PCP - General Family Medicine 12/29/23 Jere Sales MD [address] [address] Referring Gastroenterology 12/05/20 Calin Gotti DO [address] [place] [address] Internal Medicine 10/16/23 documented as of this encounter
--- OUTSIDE RECORDS SUMMARY | 2025-03-24 11:30 | XMS_ITS | Encounter Summary ---
Author Organization [facility] Address [address] [place] [address] Care Team Providers Care Briquetter Operator Name Role Phone Jere Sales MD Unavailable [phone] Calin Gotti DO Unavailable [phone] Jose Antonio Meyers MD Primary Care Provider [phone] Source Comments In the event this information is protected by the Federal Confidentiality of Alcohol and Drug AbusePatient Records regulations: The Federal rules restrict any use of the information to criminally investigate or prosecute any alcohol or drug abuse patient.[facility] Reason for Visit * Reason Onset Date Comments Procedure 03/24/2025 Manometry Esopha geal * Outpatient Procedure (Routine) - Closed Specialty Diagnoses / Procedures Referred By Contac t Referred To Contact [facility] Diagnoses Esophageal dysphagia Procedures MANOMETRY ESOPHAGEAL ESOPHAGEAL MOTILITY STUDY W/INTERP&RPT Sue Terrell MD [address] [place], [place] [address], [place] [address] Phone: tel: fax: [facility] [place] [address] Referral ID Status Reason Start Date Expiration Date V isits Requested Visits Authorized [id number] Closed Auto-Generate d Referral 03/18/2025 03/18/2026 1 1 Encounter Details Date Type Department Care Team (Late st Contact Info) Description 03/24/2025 11:30 AM EDT Nurse Visit Gastroenterology [address] [place] [id number], Nurse Gi Lab [address] [place] [phone] Esophageal dysphagia Social History Tobacco Use Types Packs/Day Years Used Date Smoking Tobacco: Never Smokeless Tobacco: Never Alcohol Use Standard Drinks/Week Comments Yes 0 (1 standard drink = 0.6 oz pure alcohol) socially, no drink since 06/2023 [facility] Utilities Answer Date Recorded In the past 12 months has th e [employer], gas, oil, or water [employer] threatened to shut off services in your [...] is lower risk 5 12/11/2023 Data from: https://www.neighborhoodatlas.[facility]/. Last address used for calculation 2230 12/11/2023 [...] Entry Date Author No 12/26/2023 4:30 PM ROBERTT Orlando Welsh RN documented in this encounter Progress Notes * Julien Saleh LPN - 03/24/2025 4:36 PM EDT Name: Bryan Harris CCF#: [id number] Date: 03/24/2025 ESOPHAGEAL MANOMETRY TEST Indication: Dysphagia Pain Assessment: No pain is present. The patient has been NPO since last evening. A local anesthetic 1.5 cc 2% Viscous Lidocaine was instilled into the left nares. The patient was intubated the left nares using a 36 sensor high resolution circumferential solid state manometry catheter The esophageal manometry test was completed. The patient tolerated the test without difficulty. .Julien Saleh LPN documented in this encounter Plan of Treatment Upcoming Encounters Date Type Department Care Team ([facility] st Contact Info) Description 04/05/2025 1:30 PM EDT Appointment Gastroenterology [address] [address] Patrice Frost MD [address] [place] [address] Esophageal dysphagia [R13.19] 05/12/2025 8:25 AM EST Office Visit Gastroenterology [address] [address] Luis Valentine MD [address] [place] [address] Araseli Wall Reffered 05/12/2025 11:45 AM EST [place] [address] [facility] [place] [address] [place] [address] [facility] [place] [place] [address] Follow-up 05/21/2025 2:00 PM EST Office Visit Cardiology [address] [facility] [place] [address] [place] [address] [facility] [place] [address] 6 month follow up documented as of this encounter Goals Goal Patient Goal Type Associated Problems Recent Progress Patient-Stated? Author Blood Pressure < 130/80 Blood Pressure 128/82(2024 12:30 PM EDT) Sung Farrell MD documented as of this encounter Procedures Procedure Name Priority Date/Time Associated Diagnosis Comments MANOMETRY ESOPHAGEAL Routine 03/24/2025 Esophageal dysphagia documented in this encounter Results * MANOMETRY ESOPHAGEAL (03/24/2025) Anatomical Region Laterality Modality Other Implant/Device/Fo reign Body 03/24/2025 Narrative 03/24/2025 Patient: Bryan Harris [id number] Gender: Male Physician: Aure Giraldo MD / Age: 0903/13/1950 [employer] Center Consultant: Julien Saleh LPN Height: Referring Physician: Sue Terrell Procedure: Esophageal HRM Examination Date: 03/24/2025 Lower Esophageal Sphincter Region Normal Landmarks Proximal LES (from nares)(cm) 40.1 LES length(cm) 1.8 2.7-4.8 Esophageal length (LES-UES centers)(cm) 21.2 Intraabdominal LES length(cm) 0.0 Hiatal hernia? Yes LES Pressures Pressure margarita. method eSleeve,IRP Basal (respiratory mean)(mmHg) 0.9 13-43 Residual (median)(mmHg) 6.5 <15.0 Esophageal Motility Normal Number of swallows evaluated 10 [place] Classification % failed 0 % weak 0 % ineffective 0 % panesophageal pressurization 0 % premature contraction 10 % fragmented 0 % intact 100 Number of hypercontractile swallows 0 Procedure All swallows in supine position. Indications Dysphagia Interpretation / Findings Supine swallows: The lower esophageal sphincter was normotensive at rest, and lower esophageal sphincter deglutitive relaxation was normal. 9/10 swallows were intact with a normal contractile pattern, distal contractile integral, and distal latency. 1/10 intact but premature. Clinical correlation is recommended. Impressions 10 swallows performed (not 15) given that it was an endoscopically placed manometry catheter. Overall, this is considered a normal study Aure Giraldo MD Sue Terrell MD [facility] Final Result documented in this encounter Visit Diagnoses Diagnosis Esophageal dysphagia Dysphagia, pharyngoesophageal phase documented in this encounter Care Teams Briquetter Operator Relationship Specialty Start [place] [address] [address] [place] [address] PCP - General Family Medicine 12/29/23 Jere Sales MD [address] [address] Referring Gastroenterology 12/05/20 Calin Gotti DO [address] [place] [address] Internal Medicine 10/16/23 documented as of this encounter
--- OUTSIDE RECORDS SUMMARY | 2025-03-25 11:15 | XMS_ITS | Encounter Summary ---
Author Organization [facility] Healthcare Address [address] [place] [address] Care Team Providers Care Baking Powder Mixer Name Role Phone Dawit Lorenz DO Primary Care Provider [phone] Reason for Visit * Reason Comments Wound Check Established patient presents today for 7-10 day wound fuv of the left 2nd toe. Patient states finished augmentin on 03/20/25. Patient has been using mupirocin ointment and band- aid Encounter Details Date Type Department Care Team (Late st Contact Info) Description 03/25/2025 11:15 AM EDT Office Visit [facility] [address] [place] [address] Uzair Lubin DPM [address] [place], [place] [id number] 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, stage 2 (CMS-HCC) (Primary Dx); Cellulitis of left foot; Pain in toe of left foot; Difficulty walking Social History Tobacco Use Types Packs/Day Years [...] Sign Reading Time Taken Comments Blood Pressure - - Pulse - - Temperature - - Respiratory Rate - - Oxygen Saturation - - Inhaled Oxygen Concentration - - Weight 85.5 kg (188 lb 9.6 oz) 03/25/2025 11:17 AM EDT Height 182.9 cm (6') 03/25/2025 11:17 AM EDT Body Mass Index 25.58 03/25/2025 11:17 AM EDT documented in this encounter Patient Instructions * Patient Instructions* Uzair Lubin DPM - 03/25/2025 11:15 AM EDT As noted documented in this encounter Progress Notes * Uzair Lubin DPM - 03/25/2025 11:15 AM EDT Images from the original note were not included. Subjective Patient ID: Willie Harris is a 75 y.o. male who presents for Wound Check (Established patient presents today for 7-10 day wound fuv of the left 2nd toe. Patient states finished augmentin on 03/20/25. Patient has been using mupirocin ointment and band- aid ). HPI Follow-up assessment: Ulceration with cellulitis 2nd digit left foot. Accompanied by his spouse. Completed Augmentin therapy, noting no adverse effects. Reports good compliance with wound care measures. Patient denies streaking or constitutional symptoms. Wound Check Medications Current Outpatient Medications: allopurinol (Zyloprim) 300 MG tablet, Take 300 mg by mouth at bedtime, Disp: , Rfl: Ascorbic Acid (vitamin C) 500 MG tablet, Take 500 mg by mouth Daily, Disp: , Rfl: atorvastatin (Lipitor) 10 MG tablet, Take 10 mg by mouth at bedtime, Disp: , Rfl: CALCIUM MAGNESIUM ZINC PO, Take by mouth, Disp: , Rfl: Dextromethorphan-guaiFENesin (MUCINEX DM PO), Take by mouth, Disp: , Rfl: famotidine (Pepcid) 20 MG tablet, Take by mouth, Disp: , Rfl: Loratadine (CLARITIN PO), Take 10 mg by mouth, Disp: , Rfl: mirabegron ER (Myrbetriq) 50 MG 24 hr tablet, Take 50 mg by mouth at bedtime Do not crush, chew, orsplit., Disp: , Rfl: Multiple Vitamins-Minerals (MULTIVITAMIN ADULTS 50+ PO), Take by mouth, Disp: , Rfl: pantoprazole (ProtoNix) 40 MG EC tablet, Take 40 mg by mouth in the morning. Take before meals. Do not crush, chew, or split., Disp: , Rfl: potassium chloride ER (Micro-K) 10 MEQ ER capsule, Take 20 mEq by mouth in the morning and 20 mEq before bedtime. Do not crush or chew., Disp: , Rfl: quiNINE (Qualaquin) 324 MG capsule, Take 324 mg by mouth every 8 (eight) hours, Disp: , Rfl: spironolactone (Aldactone) 25 MG tablet, Take by mouth Daily, Disp: , Rfl: torsemide (Demadex) 100 MG tablet, Take 100 mg by mouth Daily, Disp: , Rfl: traZODone (Desyrel) 100 MG tablet, Take 100 mg by mouth at bedtime, Disp: , Rfl: Allergies Tramadol and Oxycodone-acetaminophen Past Surgical History Past Surgical History: Procedure Laterality Date CATARACT EXTRACTION Bilateral 10/2022 Dr. Hamilton PERFUSION LUNG Right 11/20/2023 cath removed 11-19-2024 REPLACEMENT TOTAL KNEE ONCOLOGIC Bilateral 2016 Family History Family History Problem Relation Name Age of Onset Melanoma Neg Hx Objective General assessment: Alert and oriented. Pleasant disposition. Darco shoe in place left. Accompanied by his spouse, Eden. Vascular: DP 1/4 bilateral. PT 1/4 bilateral. CFT brisk all digits. Temperature gradient: Warm-cool all digits bilateral. Digital hair growth is sparse. Symmetrical, pitting edema bilateral ankles extending onto the dorsum of both feet, slightly worse on the left side. Neurologic: Tactile and light touch sensation intact. No focal motor or sensory deficits are noted. Dermatologic: Skin turgor is fair. Web space areas are clean, dry, non-inflamed. Toenail pathology: Dystrophic, discolored multiple digits. Ulceration: 2nd digit left foot: Major stage II full-thickness ulcerative lesion; located on the distal aspect of the digit. The wound bed is well hydrated, clean and granular without probing or tracking. There is no exposed bone. There is near-complete resolution of redness and swelling; with no a ppreciable warmth. Soft tissue envelope appears well-perfused. TDO deformity. Post-debridement measurements: 03/25/2025: 0.5 x 0.2 x 0.2 cm. Wound measurements: 03/17/2025: 0.7 x 0.3 x 0.2 cm. Post-debridement measurements: 03/12/2025: 0.9 x 0.7 x 0.2 cm. Orthopedic: Range of motion: Functional but limited ankle and subtalar joint range of motion. Limited 1st MTP joint range of motion. Lesion pattern: Distal HD lesion 2nd digit left foot with ulcerative changes as described. No other forefoot or digital discrete keratotic lesions are noted. Radiology: RADIOGRAPHS: 3 views left foot: Weight-bearing: DP, oblique, lateral: 03/12/2025: Unremarkable for acute osseous or joint pathology. There are no distinct lytic or erosive changes of the distal phalanx of the 2nd digit. Unremarkable for fracture or stress fracture changes. Extensive degenerative art hritic changes of the 1st MTP joint. Assessment/Plan Major stage II decubitus ulceration 2nd digit left foot. Effective resolution of localized cellulitis. Plan: Review of clinical findings, etiology and contributing/aggravating factors, high-risk nature of the condition, favorable response to date, treatment strategy, rationale and objectives. 2nd digit left foot: Full-thickness excisional wound debridement as described. Silver alginate dressing: Intact, clean and dry x 5 days. Instructions to then cleanse the wound daily and apply mupirocin ointment. Band- Aid dressing as necessary. Offloading: Darco shoe x 5 days, followed by gradual transition to Skechers slip-on footwear with custom fabricated crest pad. Cane or walker assist as needed. Follow up: 2 weeks; sooner if condition worsens Procedure: 2nd digit left foot: Aseptic technique: # 15 scalpel: Sharp, active, selective, full-thickness excisional debridement of stage II wound; to the level of subcutaneous, bleeding granular tissue; excising devitalized, dystrophic, non- viable, keratotic, fibrotic and eschar tissue; reducing direct and indirect pressure; reducing wound bioburden. Site cleansing and irrigation. Pressure hemostasis. Silver alginate dressing. This note was created with the assistance of a speech recognition program. While intending to generate a timely document that accurately reflects the content of the visit, no guarantee can be provided that every grammatical or spelling mistake has been or will be identified or corrected. Thank you for your understanding. Uzair Lubin DPM documented in this encounter Plan of Treatment Upcoming Encounters Date Type Department Care Team (Late st Contact Info) Description 04/07/2025 2:45 PM EDT Procedure Visit [facility] [address] [place] [address] Uzair Lubin DPM [address] [place] [address] 08/16/2025 1:30 PM EST Office Visit [facility] [address] [place] [id number] Arley Hamilton DO [address] [place] [address] 08/31/2025 1:05 PM EDT Office Visit [facility] [address] [place] [id number] Bianca Bynum MD [address] [place] [address] documented as of this encounter Visit Diagnoses Diagnosis 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, stage 2 (CMS-HCC)- Primary Cellulitis of left foot Pain in toe of left foot Pain in soft tissues of limb Difficulty walking Difficulty in walking documented in this encounter Care Teams Baking Powder Mixer Relationship Specialty Start Date End Date Dawit Lorenz DO [address] [facility] [place] [address] PCP - General Internal Medicine 03/12/25 documented as of this encounter
--- OUTSIDE RECORDS SUMMARY | 2025-03-29 12:55 | XMS_ITS | Encounter Summary ---
Author Organization [facility] Address [address] [place] [address] Care Team Providers Care Mother Tester Name Role Phone Jere Sales MD Unavailable [phone] Calin Gotti DO Unavailable [phone] Jose Antonio Meyers MD Primary Care Provider [phone] Source Comments In the event this information is protected by the Federal Confidentiality of Alcohol and Drug AbusePatient Records regulations: The Federal rules restrict any use of the information to criminally investigate or prosecute any alcohol or drug abuse patient.[facility] Reason for Visit * Reason Comments Radio Gen RMP Encounter Details Date Type Department Care Team (Latest Contact Info) Description 03/29/2025 12:55 PM EDT - 03/29/2025 11:59 PM EDT Hospital Encounter Radiology [address] [place] [address] Pleural effusion, not elsewhere classified [J90] Discharge [...] Data from: https://www.neighborhoodatlas.medicine.[email or web address].edu/. Last address used for calculation [address] 12/11/2023 [...] 180 capsule 01/26/2025 mirabegron (MYRBETRIQ) 50 mg [id number]:Ur ge incontinence Take 1 tablet by mouth [...] 10 mg by mouth once daily. calcium obu-hbm-S6-Zn-copyright manager- kian 250 mg-40 mg- 125 unit-3.75mg tab Take by mouth. allopurinol (ZYLOPRIM) 300 mg tablet Take 300 mg by mouth once daily. 10/21/2020 documented as of this encounter Progress Notes * Patricia Coello RT(R) - 03/29/2025 1:00 PM EDT Radiology Service Progress Note PATIENT NAME: Bryan Harris DATE OF SERVICE: March 29, 2025 TIME: 1:07 PM PATIENT IDENTITY VERIFICATION COMPLETED USING TWO [...] PATIENT PRESENTS WITH AN IMPLANTABLE OR ATTACHED AIRCRAFT LOAD CONTROLLER: No RADIOLOGY DEPARTMENT: General X-ray: Exam(s) Completed: Chest X-Ray PERIPHERAL IV DATA: Not applicable SIGNED BY: RT [place](R) March 29, 2025 1:07 PM documented in this encounter Plan of Treatment Upcoming Encounters Date Type Department Care Team (Late st Contact Info) Description 04/05/2025 1:30 PM EDT Appointment Gastroenterology [address] [place] [address] Patrice Frost MD [address] [place] [address] Esophageal dysphagia [R13.19] 05/12/2025 8:25 AM EST Office Visit Gastroenterology [address] [address] Luis Valentine MD [address] [place], [place] [id number] Araseli Wall Reffered 05/12/2025 11:45 AM EST [place] [address] [place], [place] [id number] [place] [address] [place] [address] Follow-up 05/21/2025 2:00 PM EST Office Visit Cardiology [address] [place] [address] [place] [address] [facility] [place] [address] 6 month follow up documented as of this encounter Goals Goal Patient Goal Type Associated Problems Recent Progress Patient-Stated? Author Blood Pressure < 130/80 Blood Pressure 128/82(2024 12:30 PM EDT) Sung Farrell MD documented as of this encounter Procedures Procedure Name Priority Date/Time Associated Diagnosis Comments XR CHEST 2V FRONTAL/LAT Routine 03/29/2025 1:09 PM EDT Pleural effusion, not elsewhere classified documented in this encounter Results * XR CHEST 2V FRONTAL/LAT (03/29/2025 1:09 PM EDT) Anatomical Region Laterality Modality Chest Other 03/29/2025 1:09 PM EDT Impressions 03/30/2025 12:40 PM EDT IMPRESSION: 1. Streaky scarring/discoid atelectasis in the left lower lung field, new since 01/08/25. 2. Trace right pleural effusion with hazy opacities in the right lung base, stable. Transcribe Date/Time: Mar 30 2025 12:34P Dictated by: KARYN BOOTH MD This examination was interpreted and the report reviewed and electronically signed by: KARYN BOOTH MD on Mar 30 2025 12:38PM EST Thank you for allowing us to participate in the care of your patient. Should there be any questions regarding this interpretation, please call [phone]. If you are unable to reach us at the number above, please feel free to contact [facility] at [phone]. Narrative 03/30/2025 12:40 PM EDT * * *Final Report* * * DATE OF EXAM: Mar 29 2025 1:09PM [id number] - XR CHEST 2V FRONTAL/LAT / PROCEDURE REASON: Pleural effusion, not elsewhere classified * * * * Physician Interpretation * * * * RESULT: EXAMINATION: CHEST RADIOGRAPH (2 VIEW FRONTAL & LATERAL) CLINICAL HISTORY: Pleural effusion, not elsewhere classified MQ: XC2_6 EXAM DATE/TIME: 03/29/2025 1:09 PM COMPARISON: 01/08/25 RESULT: Lines, tubes, and devices: None. Lungs and pleura: Mild elevation of the right hemidiaphragm, stable. Trace right pleural effusion with hazy opacities in the right lung base, stable. Streaky scarring/discoid atelectasis in the left lower lung field, new. No pneumothorax. Cardiomediastinal silhouette: Normal cardiomediastinal silhouette. Bones and soft tissues: Unremarkable. Procedure Note Provider, [facility] - 03/30/2025 * * *Final Report* * * DATE OF EXAM: Mar 29 2025 1:09PM [id number] - XR CHEST 2V FRONTAL/LAT / PROCEDURE REASON: Pleural effusion, not elsewhere classified * * * * Physician Interpretation * * * * RESULT: EXAMINATION: CHEST RADIOGRAPH (2 VIEW FRONTAL & LATERAL) CLINICAL HISTORY: Pleural effusion, not elsewhere classified MQ: XC2_6 EXAM DATE/TIME: 03/29/2025 1:09 PM COMPARISON: 01/08/25 RESULT: Lines, tubes, and devices: None. Lungs and pleura: Mild elevation of the right hemidiaphragm, stable. Trace right pleural effusion with hazy opacities in the right lung base, stable. Streaky scarring/discoid atelectasis in the left lower lung field, new. No pneumothorax. Cardiomediastinal silhouette: Normal cardiomediastinal silhouette. Bones and soft tissues: Unremarkable. IMPRESSION IMPRESSION: 1. Streaky scarring/discoid atelectasis in the left lower lung field, new since 01/08/25. 2. Trace right pleural effusion with hazy opacities in the right lung base, stable. Transcribe Date/Time: Mar 30 2025 12:34P Dictated by: KARYN BOOTH MD This examination was interpreted and the report reviewed and electronically signed by: KARYN BOOTH MD on Mar 30 2025 12:38PM EST Thank you for allowing us to participate in the care of your patient. Should there be any questions regarding this interpretation, please call [phone]. If you are unable to reach us at the number above, please feel free to contact [facility] at [phone]. us Triston Riggs MD RAD-PAMA Final Result documented in this encounter Visit Diagnoses Diagnosis Pleural effusion, not elsewhere classified documented in this encounter Care Teams Mother Tester Relationship Specialty Start [place] [address] [place] [address] PCP - General Family Medicine 12/29/23 Jere Sales MD [address] [address] Referring Gastroenterology 12/05/20 Calin Gotti DO [address] [place] [address] Internal Medicine 10/16/23 documented as of this encounter
[2025-04-02] VITALS (20 sets, daily range): BP systolic 92–122; BP diastolic 53–82; PULSE 86–101; TEMP 36.7–37.3; O2SAT 92–99; BMI 25.8; BMI 26.9
--- NOTE | 2025-04-02 09:38 | ECG_ITS ---
[facility] Test Date: 2025-04-02 Pat Name: SAV RAYMUNDO Department: Room: - Gender: Male Service Dispatcher: : 1950 Requested By: YULI MARISCAL Order Number: [id number] Katarina MD: ALEXSANDER ZUÑIGA M.D. Measurements Intervals [place] Rate: 95 P: 6 NE: 158 QRS: -1 QRSD: 82 T: 183 QT: 326 QTc: 379 Interpretive Statements 1100 Sinus rhythm 4068 Nonspecific Twave abnormality 9130 borderline ECG Compared to ECG 08/30/2024 18:53:08 No significant changes Electronically Signed On 04-02-2025 18:06:18 EDT by ALEXSANDER ZUÑIGA M.D.
--- NOTE | 2025-04-02 09:39 | ED.GENADUL1 ---
HPI HPI - General Adult General Chief complaint: Extremity Problem, Nontraumatic Stated complaint: L LEG PAIN, DIARRHEA, VOMITING Time Seen by Provider: 04/02/25 09:33 Source: patient and family Mode of arrival: walk-in History of Present Illness HPI narrative: 75-year-old male presents for redness pain and swelling to his left leg. He has developed this over the past few days and has been on Keflex for about 24 hours. He developed a fever and then was nauseous and vomiting and his PCP sent him in to be evaluated and to be admitted. His gives most of the history. No history of any trauma. Related Data Home Medications ?Medication ?Instructions ?Recorded ?Confirmed allopurinol 300 mg tablet 300 mg PO DAILY 08/15/23 04/02/25 atorvastatin 10 mg tablet 10 mg PO QPM 08/15/23 04/02/25 Held on 12/25/24. Instructions: Doctor's Order ascorbic acid (vitamin C) 500 mg 500 mg PO BID 08/30/24 04/02/25 chewable tablet (C-500) dextromethorphan-guaifenesin 30 1 tab PO Q12H 08/30/24 04/02/25 mg-600 mg tablet extended feqbnmb59 hr (Mucinex DM) loratadine 10 mg tablet (Loradamed) 10 mg PO DAILY 08/30/24 04/02/25 Held on 04/02/25. Instructions: Doctor's Order metolazone 5 mg tablet 5 mg PO QDAY 08/30/24 04/02/25 Held on 04/02/25. Instructions: Doctor's Order tezpkbfbxyrx-yhonbvyw-sxzjsg 1 tab PO DAILY 08/30/24 04/02/25 tablet (Milltrium Senior tablet) pantoprazole 40 mg granules 40 mg PO BID 08/30/24 04/02/25 delayed-release for susp in packet (Protonix) quinine sulfate 324 mg capsule 324 mg PO Q12H 08/30/24 04/02/25 torsemide 100 mg tablet 100 mg PO QDAY 08/30/24 04/02/25 famotidine 20 mg tablet 20 mg PO DAILY 12/25/24 04/02/25 mirabegron 50 mg tablet,extended 50 mg PO QPM 12/25/24 04/02/25 release 24 hr spironolactone 25 mg tablet 25 mg PO QAM 12/25/24 04/02/25 sucralfate 1 gram tablet 1 g PO ACHS 12/25/24 04/02/25 Held on 04/02/25. Instructions: Doctor's Order Previous Rx's ?Medication ?Instructions ?Recorded potassium chloride 20 mEq 40 meq (2 x 20 mEq) PO BID #0 tabs 08/31/24 tablet,extended release(part/cryst) cephalexin 500 mg capsule 500 mg PO BID 7 days #14 caps 12/25/24 Allergies Allergy/AdvReac Type Severity Reaction Status Date / Time tramadol Allergy Severe Hallucinati Verified 04/02/25 09:38 ng Opioid HPI Opioid Management Most Recent Opioid Data: Last Pain Scale 0 08/31/24, 15:47 Last ORT Total Score 0 08/30/24, 21:02 Last ORT Risk Category Low Risk 08/30/24, 21:02 Review of Systems ROS Narrative A ten point review of systems is negative except as noted above. [facility] Medical History (Updated 04/02/25 @ 11:52 by Vineet Boggs MD) Ascites ?R18.8 - Other ascites (ICD-10) Leg edema ?R60.0 - Localized edema (ICD-10) Pleural effusion, right ?J90 - Pleural effusion, not elsewhere classified (ICD-10) Gout ?M10.9 - Gout, unspecified (ICD-10) Hyperlipidemia ?E78.5 - Hyperlipidemia, unspecified (ICD-10) Recurrent right pleural effusion ?J90 - Pleural effusion, not elsewhere classified (ICD-10) Right hand fracture ?S62.91XA - Unspecified fracture of right wrist and hand, initial encounter for closed fracture (ICD-10) Lymphocytic colitis ?K52.832 - Lymphocytic colitis (ICD-10) Surgical History Hx of knee surgery ?Z98.890 - Other specified postprocedural states (ICD-10) History of cataract surgery ?Z98.49 - Cataract extraction status, unspecified eye (ICD-10) Family History Grandmother Family history of diabetes mellitus Father Family history of hypertension Family history of myocardial infarction Brother Family history of hypertension Social History Within the past year, how often did you have a drink containing alcohol: never Score interpretation: A score less than 4 is consistent with normal alcohol consumption. Smoking status: Never smoker Non-prescribed substance use: denies use Highest level of school completed/degree received: Bachelor's degree Are you now , , , , never or living with a partner: Little interest or pleasure in doing things: not at all Feeling down, depressed, or hopeless: not at all Feel stressed/tense/nervous/anxious/difficulty sleeping: to some extent Do you think of yourself as: straight/heterosexual Gender Identity: male Exam Narrative Exam Narrative: Nurses note and vital signs reviewed and patient is not hypoxic. General:The patient appears in no acute distress Skin:Warm, dry, no pallor noted.There is no rash noted. Head:Normocephalic, atraumatic Eye: Normal conjunctiva, no drainage Ears, Nose, Mouth, and Throat: oral mucosa is moist. Nares patent. Cardiovascular:Regular Rate and Rhythm Respiratory:Patient is in no distress, no accessory muscle use, lungs are clear to auscultation, no wheezing, rales or rhonchi Back:non-tender, no CVA tenderness bilaterally to percussion. GI: Protuberant abdomen present with positive fluid wave Musculoskeletal: The left leg is examined. The second toe has an open area at the most distal aspect where an infected callus had been taken off 3 to 4 weeks ago by his blood bank credit clerk. The erythema is significant and extends from the ankle well above his knee. It is warm to touch Neurological: Awake and alert Psychiatric:Cooperative Constitutional Vital Signs, click to edit/add: Last Vital Signs Temp 98.1 F 04/02/25 11:27 Pulse 93 H 04/02/25 11:30 Resp 20 04/02/25 11:30 BP 122/75 04/02/25 11:30 Pulse Ox 98 04/02/25 11:30 O2 Del Method Room Air 04/02/25 09:28 Course Vital Signs Vital signs: Vital Signs Temperature 98.8 F 04/02/25 09:28 Pulse Rate 98 H 04/02/25 09:28 Respiratory Rate 18 04/02/25 09:28 Blood Pressure 114/81 04/02/25 09:28 Pulse Oximetry 99 04/02/25 09:28 Oxygen Delivery Method Room Air 04/02/25 09:28 Temperature 98.1 F 04/02/25 11:27 Pulse Rate 93 H 04/02/25 11:30 Respiratory Rate 20 04/02/25 11:30 Blood Pressure 122/75 04/02/25 11:30 Pulse Oximetry 98 04/02/25 11:30 Oxygen Delivery Method Room Air 04/02/25 09:28 Medical Decision Making MDM Narrative Medical decision making narrative: Doppler is negative, no evidence of DVT. My clinical impression is that he has left leg cellulitis. Blood cultures were obtained and he is being admitted for IV antibiotics. Treatment diagnosis and disposition were discussed with the patient and his . Differential Diagnosis Differential Diagnosis: Cellulitis, DVT Lab Data Lab results reviewed: Yes I reviewed the patient's lab results Labs: Lab Results 04/02/25 Range/Units 09:44 WBC 12.7 H (4.0-11.0) 10^3/uL RBC 3.55 L (4.70-6.10) 10^6/uL Hgb 11.1 L (14.0-18.0) g/dL Hct 34.3 L (42.0-54.0) % MCV 96.6 H (80.0-94.0) fL MCH 31.3 (25.9-34.0) pg MCHC 32.4 (29.9-35.2) g/dL RDW 16.0 H (11.0-15.0) % Plt Count 241 (150-450) 10^3/uL MPV 10.4 (9.5-13.5) fL Neut % (Auto) 85.0 H (43.0-75.0) % Lymph % (Auto) 7.3 L (20.5-60.0) % Hawkins % (Auto) 6.9 (1.7-12.0) % Eos % (Auto) 0.1 L (0.9-7.0) % Baso % (Auto) 0.2 (0.2-2.0) % Neut # (Auto) 10.8 H (1.4-6.5) 10^3/uL Lymph # (Auto) 0.9 L (1.2-3.8) 10^3/uL Hawkins # (Auto) 0.9 H (0.3-0.8) 10^3/uL Eos # (Auto) 0.0 (0.0-0.7) 10^3/uL Baso # (Auto) 0.0 (0.0-0.1) 10^3/uL Abs Immat Gran (auto) 0.06 H (0.00-0.03) 10^3/uL Imm/Tot Granulo (auto) 0.5 (0.0-0.5) % Sodium 136 (136-145) mmol/L Potassium 4.8 (3.5-5.1) mmol/L Chloride 101 (98-107) mmol/L Carbon Dioxide 24.6 (21.0-32.0) mmol/L Anion Gap 15.2 BUN 31.0 H (7.0-18.0) mg/dL Creatinine 1.74 H (0.70-1.30) mg/dL Est GFR ( Amer) 47 L (>=60 mL/min/1.73m^2) Est GFR (Non-Af Amer) 39 L (>=60 mL/min/1.73m^2) BUN/Creatinine Ratio 17.8 Glucose 109 H (74-106) mg/dL Lactate 1.8 (0.4-2.0) mmol/L Calcium 9.1 (8.5-10.1) mg/dL Total Bilirubin 1.6 H (0.2-1.0) mg/dL Direct Bilirubin 0.5 H (0.0-0.2) mg/dL AST 13 L (15-37) U/L ALT 21 (16-63) U/L Alkaline Phosphatase 101 (46-116) U/L Total Protein 7.7 (6.4-8.2) g/dL Albumin 3.1 L (3.4-5.0) g/dL Globulin 4.6 g/dL Albumin/Globulin Ratio 0.7 Imaging Data Left leg Doppler: Radiologist's impression: No DVT in the left lower extremity Discharge Plan Discharge Chief Complaint: Extremity Problem, Nontraumatic Clinical Impression: Cellulitis of left leg Patient Disposition: Admitted As Inpatient Time of Disposition Decision: 11:52 Condition: Good
--- OUTSIDE RECORDS SUMMARY | 2025-04-02 10:08 | XMS_ITS | Encounter Summary ---
Author Organization [facility] Address [address] [place] [address] Care Team Providers Care Inspector Outside Steam Distribution Name Role Phone Jere Sales MD Unavailable [phone] Calin Gotti DO Unavailable [phone] Jose Antonio Meyers MD Primary Care Provider [phone] Source Comments In the event this information is protected by the Federal Confidentiality of Alcohol and Drug AbusePatient Records regulations: The Federal rules restrict any use of the information to criminally investigate or prosecute any alcohol or drug abuse patient.[facility] Encounter Details Date Type Department Care Team (Late st Contact Info) Description 02/10/2024 Get Medical Advice Thoracic Surgery [address] [place] [address] Cecilia Guadarrama APRN.TICKETER [address] [place] [address] Channel Marketing Program Manager/Goldie lar Appt Social History Tobacco Use Types [...] risk 5 12/11/2023 Data from: https://www.neighborhoodatlas.medicine.[facility].edu/. Last address used for calculation [...] 04/05/2025 1:30 PM EDT Appointment Gastroenterology [address] [address] Patrice Frost MD [address] [place] [address] Esophageal dysphagia [R13.19] 05/12/2025 8:25 AM EST Office Visit Gastroenterology [address] [address] Luis Valentine MD [address] [place] [address] Araseli Wall Reffered 05/12/2025 11:45 AM EST Office [place] [address] [place] [address] [place] [address] [place] [address] Follow-up 05/21/2025 2:00 PM EST Office Visit Cardiology [address] [facility] [place] [place] [address] [place] [address] [facility] [place] [address] 6 month follow up documented as of this encounter Goals Goal Patient Goal Type Associated Problems Recent Progress Patient-Stated? Author Blood Pressure < 130/80 Blood Pressure 128/82(2024 12:30 PM EDT) Sung Farrell MD documented as of this encounter Visit Diagnoses Not on filedocumented in this encounter Care Teams Inspector Outside Steam Distribution Relationship Specialty Start [place] [address] [place] [address] PCP - General Family Medicine 12/29/23 Jere Sales MD [address] [address] Referring Gastroenterology 12/05/20 Calin Gotti DO [address] [place] [address] Internal Medicine 10/16/23 documented as of this encounter
--- OUTSIDE RECORDS SUMMARY | 2025-04-02 10:08 | XMS_ITS | Encounter Summary ---
Author Organization [facility] Address [address] [place] [address] Care Team Providers Care Conference Planner Name Role Phone Jere Sales MD Unavailable [phone] Calin Gotti DO Unavailable [phone] Jose Antonio Meyers MD Primary Care Provider [phone] Source Comments In the event this information is protected by the Federal Confidentiality of Alcohol and Drug AbusePatient Records regulations: The Federal rules restrict any use of the information to criminally investigate or prosecute any alcohol or drug abuse patient.[facility] Encounter Details Date Type Department Care Team (Late st Contact Info) Description 01/20/2024 Get Medical Advice Thoracic Surgery [address] [place] [address] Cecilia Guadarrama APRN.FOREST FIRE MANAGEMENT OFFICER [address] [place] [address] Willie Harris Appt Feb 04, 2024 Social History Tobacco Use Types Packs/Day Years Used Date Smoking Tobacco: Never Smokeless Tobacco: Never Alcohol Use Standard Drinks/Week Comments Yes 0 (1 standard drink = 0.6 oz pure alcohol) socially, no drink since 06/2023 [facility] Utilities Answer Date Recorded In [...] lower risk 5 12/11/2023 Data from: https://www.neighborhoodatlas.medicine.[facility].edu/. Last address used for calculation [...] 04/05/2025 1:30 PM EDT Appointment Gastroenterology [address] [address] Patrice Frost MD [address] [place] [address] Esophageal dysphagia [R13.19] 05/12/2025 8:25 AM EST Office Visit Gastroenterology [address] [address] Luis Valentine MD [address] [place] [address] Araseli Wall Reffered 05/12/2025 11:45 AM EST Office [place] [address] [place] [address] [place] [address] [place] [address] Follow-up 05/21/2025 2:00 PM EST Office Visit Cardiology [address] [facility] [place] [address] [place] [address] [facility] [place] [address] 6 month follow up documented as of this encounter Goals Goal Patient Goal Type Associated Problems Recent Progress Patient-Stated? Author Blood Pressure < 130/80 Blood Pressure 128/82(2024 12:30 PM EDT) Sung Farrell MD documented as of this encounter Visit Diagnoses Not on filedocumented in this encounter Care Teams Conference Planner Relationship Specialty Start [place] [address] [facility] [address] PCP - General Family Medicine 12/29/23 Jere Sales MD [address] [address] Referring Gastroenterology 12/05/20 Calin Gotti DO [address] [place] [address] Internal Medicine 10/16/23 documented as of this encounter
--- OUTSIDE RECORDS SUMMARY | 2025-04-02 10:08 | XMS_ITS | Encounter Summary ---
Author Organization [facility] Address [address] [place] [address] Care Team Providers Care Machine Presser Name Role Phone Jere Sales MD Unavailable [phone] Calin Gotti DO Unavailable [phone] Jose Antonio Meyers MD Primary Care Provider [phone] Source Comments In the event this information is protected by the Federal Confidentiality of Alcohol and Drug AbusePatient Records regulations: The Federal rules restrict any use of the information to criminally investigate or prosecute any alcohol or drug abuse patient.[facility] Encounter Details Date Type Department Care Team (Latest Contact Info) Description 01/10/2024 Transcribe Orders Respiratory [place] [address] [place] [address] Louise Douglas MD [address] [place], [place] [id number] Cough, unspecified type (Primary Dx) Social History Tobacco Use Types Packs/Day Years Used Date Smoking Tobacco: Never Smokeless Tobacco: Never [facility] Utilities Answer Date Recorded In [...] is lower risk 5 12/11/2023 Data from: https://www.neighborhoodatlas.medicine.[facility].edu/. Last address used for calculation [address] [...] 04/05/2025 1:30 PM EDT Appointment Gastroenterology [address] [address] Patrice Frost MD [address] [place] [address] Esophageal dysphagia [R13.19] 05/12/2025 8:25 AM EST Office Visit Gastroenterology [address] [address] Luis Valentine MD [address] [place] [address] Araseli Wall Reffered 05/12/2025 11:45 AM EST [place] [address] [place] [address] [place] [address] [place] [address] Follow-up 05/21/2025 2:00 PM EST Office Visit Cardiology [address] [facility] [place] [address] [place] [address] [facility] [place], [place] [id number] 6 month follow up documented as of this encounter Goals Goal Patient Goal Type Associated Problems Recent Progress Patient-Stated? Author Blood Pressure < 130/80 Blood Pressure 128/82(2024 12:30 PM EDT) Sung Farrell MD documented as of this encounter Results [...] any questions regarding this interpretation, please call [phone]. If you are unable to reach us at the number above, please feel free to contact [facility] eRadiology at [phone]. Narrative 10/13/2024 3:26 PM EDT * * [...] and soft tissues: Unremarkable. Procedure Note Provider, [facility] [place] - 10/13/2024 * * *Final Report* * [...] any questions regarding this interpretation, please call [phone]. If you are unable to reach us at the number above, please feel free to contact [facility] at [phone]. us Louise Douglas MD RAD-PAMA Final Result documented in this encounter Visit Diagnoses Diagnosis Cough, unspecified type- Primary Cough, unspecified type documented in this encounter Care Teams Machine Presser Relationship Specialty Start [place] [address] [place] [address] PCP - General Family Medicine 12/29/23 Jere Sales MD [address] [address] Referring Gastroenterology 12/05/20 Calin Gotti DO [address] [place] [address] Internal Medicine 10/16/23 documented as of this encounter
--- OUTSIDE RECORDS SUMMARY | 2025-04-02 10:08 | XMS_ITS | Encounter Summary ---
Author Organization [facility] Address [facility] [place] [address] Care Team Providers Care Composition Mixer Name Role Phone Jere Sales MD Unavailable [phone] Calin Gotti DO Unavailable [phone] Jose Antonio Meyers MD Primary Care Provider [phone] Source Comments In the event this information is protected by the Federal Confidentiality of Alcohol and Drug AbusePatient Records regulations: The Federal rules restrict any use of the information to criminally investigate or prosecute any alcohol or drug abuse patient.[facility] Encounter Details Date Type Department Care Team (Late st Contact Info) Description 08/28/2024 Get Medical Advice Pulmonary Medicine [address] [place] [address] Triston Riggs MD [address] [place] [address] Willie Harris. 1950 Social History Tobacco Use Types Packs/Day Years Used Date Smoking Tobacco: Never Smokeless Tobacco: Never Alcohol Use Standard Drinks/Week Comments Yes 0 (1 standard drink = 0.6 oz pure alcohol) socially, no drink since 06/2023 [facility] Utilities Answer Date Recorded In the [...] risk 5 12/11/2023 Data from: https://www.neighborhoodatlas.medicine.[facility].edu/. Last address used for calculation [...] 09/01/2024 11:36 AM EDT Patient called regarding mychart message below. She expressed that she has not heard anything back yet. documented in this encounter Plan of Treatment Upcoming Encounters Date Type Department Care Team (Late st Contact Info) Description 04/05/2025 1:30 PM EDT Appointment Gastroenterology [address] [place] [address] Patrice Frost MD [address] [place] [address] Esophageal dysphagia [R13.19] 05/12/2025 8:25 AM EST Office Visit Gastroenterology [address] [address] Luis Valentine MD [address] [facility] [address] Araseli Wall Reffered 05/12/2025 11:45 AM EST [place] [address] [facility] [address] [place] [address] [facility] [place] [address] Follow-up 05/21/2025 2:00 PM EST Office Visit Cardiology [address] [place] [address] [place] [address] [facility] [place] [address] 6 month follow up documented as of this encounter Goals Goal Patient Goal Type Associated Problems Recent Progress Patient-Stated? Author Blood Pressure < 130/80 Blood Pressure 128/82(2024 12:30 PM EDT) Sung Farrell MD documented as of this encounter Visit Diagnoses Not on filedocumented in this encounter Care Teams Composition Mixer Relationship Specialty Start [place] [address] [facility] [address] PCP - General Family Medicine 12/29/23 Jere Sales MD [address] [address] Referring Gastroenterology 12/05/20 Calin Gotti DO [address] [place] [address] Internal Medicine 10/16/23 documented as of this encounter
--- OUTSIDE RECORDS SUMMARY | 2025-04-02 10:08 | XMS_ITS | Encounter Summary ---
Author Organization [facility] Address [facility] [place] [address] Care Team Providers Care Machine Strap Buckler Name Role Phone Jere Sales MD Unavailable [phone] Calin Gotti DO Unavailable [phone] Jose Antonio Meyers MD Primary Care Provider [phone] Source Comments In the event this information is protected by the Federal Confidentiality of Alcohol and Drug AbusePatient Records regulations: The Federal rules restrict any use of the information to criminally investigate or prosecute any alcohol or drug abuse patient.[facility] Encounter Details Date Type Department Care Team (Late st Contact Info) Description 08/25/2024 Get Medical Advice Pulmonary Medicine [address] [place] [address] Triston Riggs MD [address] [place] [address] Willie Harris . 1950 Social History Tobacco Use Types Packs/Day Years Used Date Smoking Tobacco: Never Smokeless Tobacco: Never Alcohol Use Standard Drinks/Week Comments Yes 0 (1 standard drink = 0.6 oz pure alcohol) socially, no drink since 06/2023 [facility] Utilities Answer Date Recorded In the [...] 04/05/2025 1:30 PM EDT Appointment Gastroenterology [address] [address] Patrice Frost MD [address] [place] [address] Esophageal dysphagia [R13.19] 05/12/2025 8:25 AM EST Office Visit Gastroenterology [address] [address] Luis Valentine MD [address] [place] [address] Araseli Wall Reffered 05/12/2025 11:45 AM EST [place] [address] [place] [address] [place] [address] [place] [address] Follow-up 05/21/2025 2:00 PM EST Office Visit Cardiology [address] [place] [address] [place] [address] [facility] [place] [address] 6 month follow up documented as of this encounter Goals Goal Patient Goal Type Associated Problems Recent Progress Patient-Stated? Author Blood Pressure < 130/80 Blood Pressure 128/82(2024 12:30 PM EDT) Sung Farrell MD documented as of this encounter Visit Diagnoses Not on filedocumented in this encounter Care Teams Machine Strap Buckler Relationship Specialty Start [place] [address] [facility] [address] PCP - General Family Medicine 12/29/23 Jere Sales MD [address] [address] Referring Gastroenterology 12/05/20 Calin Gotti DO [address] [place] [address] Internal Medicine 10/16/23 documented as of this encounter
--- OUTSIDE RECORDS SUMMARY | 2025-04-02 10:08 | XMS_ITS | Encounter Summary ---
Author Organization [facility] Address [address] [place] [address] Care Team Providers Care A P Mechanic Name Role Phone Jere Sales MD Unavailable [phone] Calin Gotti DO Unavailable [phone] Jose Antonio Meyers MD Primary Care Provider [phone] Source Comments In the event this information is protected by the Federal Confidentiality of Alcohol and Drug AbusePatient Records regulations: The Federal rules restrict any use of the information to criminally investigate or prosecute any alcohol or drug abuse patient.[facility] Encounter Details Date Type Department Care Team (Late st Contact Info) Description 02/10/2024 Get Medical Advice Thoracic Surgery [address] [place] [address] Cecilia Guadarrama APRN.DIRECTOR ERP [address] [place] [address] Willie Kimberly Social History Tobacco [...] is lower risk 5 12/11/2023 Data from: https://www.neighborhoodatlas.medicine.[facility].edu/. Last address used for calculation 22[address] [...] Assessment Author No 12/26/2023 4:30 PM EDT Sheri Welsh RN documented as of this encounter [...] 04/05/2025 1:30 PM EDT Appointment Gastroenterology [address] [address] Patrice Frost MD [address] [place] [address] Esophageal dysphagia [R13.19] 05/12/2025 8:25 AM EST Office Visit Gastroenterology [address] [address] Luis Valentine MD [address] [place] [address] Araseli Wall Reffered 05/12/2025 11:45 AM EST [place] [address] [place] [address] [place] [address] [place] [address] Follow-up 05/21/2025 2:00 PM EST Office Visit Cardiology [address] [facility] [place] [address] [place] [address] [facility] [place] [address] 6 month follow up documented as of this encounter Goals Goal Patient Goal Type Associated Problems Recent Progress Patient-Stated? Author Blood Pressure < 130/80 Blood Pressure 128/82(2024 12:30 PM EDT) Sung Farrell MD documented as of this encounter Visit Diagnoses Not on filedocumented in this encounter Care Teams A P Mechanic Relationship Specialty Start [place] [address] [place] [address] PCP - General Family Medicine 12/29/23 Jere Sales MD [address] [address] Referring Gastroenterology 12/05/20 Calin Gotti DO [address] [place] [address] Internal Medicine 10/16/23 documented as of this encounter
--- OUTSIDE RECORDS SUMMARY | 2025-04-02 10:08 | XMS_ITS | Clinical Summary ---
Author Organization [facility] Address [address] [place] [address] Care Team Providers Care Engine Manager Name Role Phone Dawit Lorenz DO Primary Care Provider [phone] Dawit Lorenz DO Unavailable [phone] Karthik Calloway MD Unavailable Unavail able Allergies [...] every morning . Active vit A-vit C-vit S-cwcn-outarb 7,160-113-100 dzib-bl-bmsh Tab Take 1 tablet by mouth every [...] for , 07/05/16 @ 130pm at our [facility] office. S/P total knee arthroplasty 06/25/2016 [...] 2) 10/25/2018 08/30/2018 COVID-19 Vaccine ( season) 2025 05/10/2021, 09/13/2020, 08/22/2020 Influenza Vaccine (#1) 2025 05/09/2020, 2019 Respiratory Syncytial Virus Immunization: Risk, 60-74 Risk, or 75+ (1 - 1-dose 75+ series) 2026 Tetanus: Every 10yrs 08/30/2028 08/30/2018, 06/04/20 18 Pneumococcal Vaccine: Age 50+ Completed 02/03/2018, 11/26/2016 Medical Devices Implanted Type Area Child Welfare Manager Device Identifier Shelf Expiration Date Model / Serial / Lot Cement 1 X 40 [place] Bone Single - [id number] Implanted:Qty: 2 on 08/23/2014 by Karthik Calloway MD at [facility] [place] Cement Left: Knee Anh 01/14/2019 00-1112-140 -01 / / [id number] Stem Short Cemented Persona - [id number] Implanted:Qty: 1 on 08/23/2014 by Karthik Calloway MD at [facility] [place] ANH HAK 09/23/2017 [id number] -14 / / [id number] Stem Sz F Tib 5deg Nonpor Lt Persona - [id number] Implanted:Qty: 1 on 08/23/2014 by Karthik Calloway MD at [facility] [place] ANH HAK 03/25/2024 [id number] -01 / / [id number] Femoral Sz9 Lt Nrw Ps Cmt Ccr Persona - [id number] Implanted:Qty: 1 on 08/23/2014 by Karthik Calloway MD at [facility] ANH HAK 12/23/2022 [id number] -01 / / [id number] Patella 32mm All Poly Persona - [id number] Implanted:Qty: 1 on 08/23/[facility]20[facility] 42-5400-000 -32 / / [id number] Articular Surf Ef 6-9 14mm Lt Ps Vivacit-E Persona - [id number] Implanted:Qty: 1 on 08/23/2014 [facility] 09/23/2017 [id number] -14 / / [id number] Simplex Hv With Gentamicin Cement Implanted:Qty: 2 on 06/25/2016 by Karthik Calloway MD at [facility] Right: Knee HOWMEDICA 01/14/2018 6195-1-001 / / [id number] Stem Sz F Tib 5deg Nonpor Rt Persona - [id number] Implanted:Qty: 1 on 06/25/2016 by Karthik Calloway MD at [facility] Right: Knee ANH K 05/16/2026 [id number] -02 / / [id number] Femoral Sz9 Rt Nrw Ps Cmt Ccr Persona - [id number] Implanted:Qty: 1 on 06/25/2016 by Karthik Calloway MD at [facility] Right: Knee ANH K 02/14/2026 [id number] -02 / / [id number] Stem Short Cemented Persona - [id number] Implanted:Qty: 1 on 06/25/2016 by Karthik Calloway MD at [facility] Right: Knee ANH HAK 06/16/2026 [id number] -14 / / [id number] Patella 32mm All Poly Vivacit-E - [id number] Implanted:Qty: 1 on 06/25/2016 by Karthik Calloway MD at [facility] Right: Knee ANH HAK 04/16/2021 [id number] -32 / / [id number] Articular Surf 14mm 6-9ef Rt Cps Ve Persona - [id number] Implanted:Qty: 1 on 06/25/2016 by Karthik Calloway MD at [facility] Right: Knee ANH HAK 12/14/2020 [id number] -14 / / [id number] Explanted Type Area Child Welfare Manager Device Identifier Shelf Expiration Date Model / Serial / Lot Headed Screw Explanted:Qty: 4 on 08/23/2014 by Karthik Calloway MD at [facility] Left: Knee Anh 08/14/2024 5791-41 / / [id number] 2.5mm Female Hex Screw Explanted:Qty: 1 on 08/23/2014 by Karthik Calloway MD at [facility] Left: Knee Anh 06/16/2024 [id number] -25 / / [id number] Headed Screw Explanted:Qty: 1 on 08/23/2014 by Karthik Calloway MD at [facility] Left: Knee Anh 07/17/2024 / / Insurance [employer] MEDICARE PLAN (PPO) Advance Directives For more information, please contact: [phone] * Full Code (Latest Code Status on File) Date Activated Date Inactivated Comments 06/25/2016 1:54 PM 06/29/2016 3:41 PM * Full Code Date Activated Date Inactivated Comments 08/23/2014 6:45 AM 08/25/2014 7:58 PM Care Teams Engine Manager Relationship Specialty Start Date End Date Dawit Lorenz DO [address] [place] [address] PCP - General Internal Medicine 06/29/14 Dawit Lorenz DO [address] [place] [address] Internal Medicine 06/29/14 Karthik Calloway MD [address] [place] [address] Consulting Physician Orthopedic Surgery 01/28/17
--- OUTSIDE RECORDS SUMMARY | 2025-04-02 10:09 | XMS_ITS | Clinical Summary ---
Author Organization [facility] Address [address] [place] [address] Care Team Providers Care Tableman Name Role Phone Dawit Lorenz Primary Care Provider [phone] Allergies Active Allergy Reactions Criticality Noted Date Comments Oxycodone-Acetamino phen Unknown 2016 Other Reaction(s): Other (See Comments) Urinary retention Hallucinations Tramadol Shortness of breath,Unknown High 08/24/2014 Other Reaction(s): Mental Status Change Medications allopurinol (Zyloprim) 300 MG tablet Take 300 mg by mouth at bedtime Active atorvastatin (Lipitor) 10 MG tablet Take 10 mg by mouth at bedtime Active traZODone (Desyrel) 100 MG tablet Take 100 mg by mouth at bedtime Active torsemide (Demadex) 100 MG tablet Take 100 mg by mouth Daily Active spironolactone (Aldactone) 25 MG tablet Take by mouth Daily Active potassium chloride ER (Micro-K) 10 MEQ ER capsule Take 20 mEq by mouth in the morning and 20 mEq before bedtime. Do not crush or chew. Active CALCIUM MAGNESIUM ZINC PO Take by mouth Active quiNINE (Qualaquin) 324 MG capsule Take 324 mg by mouth every 8 (eight) hours Active pantoprazole (ProtoNix) 40 MG EC tablet Take 40 mg by mouth in the morning. Take before meals. Do not crush, chew, or split. Active famotidine (Pepcid) 20 MG tablet Take by mouth Active mirabegron ER (Myrbetriq) 50 MG 24 hr tablet Take 50 mg by mouth at bedtime Do not crush, chew, or split. Active Ascorbic Acid (vitamin C) 500 MG tablet Take 500 mg by mouth Daily Active Multiple Vitamins-Minera ls (MULTIVITAMIN ADULTS 50+ PO) Take by mouth Active Dextromethorpha n-guaiFENesin (MUCINEX DM PO) Take by mouth Active Loratadine (CLARITIN PO) Take 10 mg by mouth Active aspirin 81 MG EC tablet Take 81 mg by mouth at bedtime. 03/12/20 Discontinue d(Discontin ued by another clinician) omeprazole (PriLOSEC) [address] capsule Take 20 mg by mouth in the morning. 03/12/20 Discontinue d(Discontin ued by another clinician) meloxicam (Mobic) 15 MG tablet Take 15 mg by mouth. 03/12/20 Discontinue d(Discontin ued by another clinician) losartan (Cozaar) 25 MG tablet Take by mouth 03/12/20 Discontinue d(Discontin ued by another clinician) Active Problems Problem Noted Date Diagnosed Date Early dry stage nonexudative age-related macular degeneration of both eyes 08/12/2024 Dry eyes 08/12/2024 Blepharitis of upper and lower eyelids of both e yes 08/12/2024 Bilateral posterior capsular opacification 08/12 Chalazion of left upper eyelid 08/12/2024 Encounters Date Type Department Care Team Description 03/25/2025 11:15 AM EDT Office Visit [facility] Pod[facility] [address] [place] [address] Uzair Lubin DPM 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, stage 2 ([facility]) (Primary Dx); Cellulitis of left foot; Pain in toe of left foot; Difficulty walking 03/25/2025 Bamboo flowsheet [facility] Pod[facility] [address] [place] [address] Uzair Lubin DPM 03/25/2025 Travel 03/24/2025 Travel 03/17/2025 10:15 AM EDT Office Visit [facility] Pod[facility] [address] [place] [address] Uzair Lubin DPM 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, stage 2 ([facility]) (Primary Dx); Cellulitis of left foot; Pain in toe of left foot; Difficulty walking 03/17/2025 Bamboo flowsheet [facility] Pod[facility] [address] [place] [address] Uzair Lubin DPM 03/17/2025 Travel 03/16/2025 Travel 03/12/2025 9:50 AM EDT Ancillary Procedure [facility] Pod[facility] [address] [place] [address] 03/12/2025 8:45 AM EDT Office Visit [facility] Pod[facility] [address] [place] [address] Uzair Lubin, GERALDO 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, stage 2 ([facility]) (Primary Dx); Cellulitis of left foot; Pain in toe of left foot; Difficulty walking 03/12/2025 Bamboo flowsheet [facility] Pod[facility] [address] [place] [address] Uzair uLbin DPM 03/12/2025 Travel 03/11/2025 Travel from Last 3 Months Immunizations Immunization Administration Dates Next Due Influenza, High Dose Seasonal, Preservative Free 05/27/2024 Influenza, trivalent, adjuvanted 05/09/2020 Pneumococcal Conjugate PCV 13 11/26/2016 Pneumococcal Polysaccharide PPSV23 02/03/2018 RSV, recombinant, protein joe bunit RSVpreF, adjuvant reconstitu, 120mcg/0.5mL, PF (Arexvy) 05/27/2024 Td (adult), 5 Lf tetanus tox oid, preservative free, adsorbed 08/30/2018,06/04/2018 Tdap 05/27/2024 Zoster, Recombinant 08/30/2018 Family History Medical History Relation Name Comments [...] Mass Index 25.58 03/25/2025 11:17 AM EDT Plan of Treatment Upcoming Encounters Date Type Department Care Team (Late st Contact Info) Description 04/07/2025 2:45 PM EDT Procedure Visit [facility] [address] [place] [address] Uzair Lubin DPM [address] [place], [place] [address] 08/16/2025 1:30 PM EST [facility] [address] [place] [address] Arley Hamilton DO [address] [place] [address] 08/31/2025 1:05 PM EDT Office Visit [facility] [address] [place] [address] Bianca Bynum MD [address] [place] [address] Health Maintenance Due Date Last Done Comments CT Colonography 1950 FIT-DNA 1950 FIT 1950 FOBT 1950 Sigmoidoscopy 1950 Influenza Vaccine (#1) 2025 05/27/2024, 2019 Colonoscopy 04/28/2034 04/28/2024, 04/17, 04/28/2024 Colorectal Cancer Screening 04/28/2034 Pneumococcal Vaccine: 65+ Years Completed 8, 11/26/2016 Procedures Procedure Name Priority Date/Time Associated Diagnosis Comments XR FOOT 3+ VIEWS LEFT Routine 03/12/2025 9:49 AM EDT 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, stage 2 (CMS-HCC) Cellulitis of left foot from Last 3 Months Results * XR foot 3+ views left (03/12/2025 9:49 AM EDT) Anatomical Region Laterality Modality Lower Extremities, Foot Left Radiogra phic Imaging Narrative 03/12/2025 9:50 AM EDT Imaging Result: 3 views left foot: Weight-bearing: DP, oblique, lateral: 03/12/2025: Unremarkable for acute osseous or joint pathology. Unremarkable for fracture or stress fracture changes. There are no distinct lytic or erosive changes of the distal phalanx 2nd digit. 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 Uzair Lubin DPM IMG XR PROCEDURES Final Resu lt from Last [address] [place] [address] [employer] MEDICARE [employer]VANTAGE Care Teams Tableman Relationship Specialty Start Date End Date Dawit Lorenz DO [address] [facility] [place] [address] PCP - General Internal Medicine 03/12/25
--- OUTSIDE RECORDS SUMMARY | 2025-04-02 10:09 | XMS_ITS | Encounter Summary ---
Author Organization [facility] Address [address] [place] [address] Care Team Providers Care Hydro Technician Name Role Phone Jere Sales MD Unavailable [phone] Calin Gotti DO Unavailable [phone] Jose Antonio Meyers MD Primary Care Provider [phone] Source Comments In the event this information is protected by the Federal Confidentiality of Alcohol and Drug AbusePatient Records regulations: The Federal rules restrict any use of the information to criminally investigate or prosecute any alcohol or drug abuse patient.[facility] Encounter Details Date Type Department Care Team (Late st Contact Info) Description 09/18/2024 Patient Msg Gastroenterology [address] [address] Provider, Ccf Procedure Instructions for EGD scheduled [...] 04/05/2025 1:30 PM EDT Appointment Gastroenterology [address] [address] Patrice Frost MD [address] [place] [address] Esophageal dysphagia [R13.19] 05/12/2025 8:25 AM EST Office Visit Gastroenterology [address] [address] Luis Valentine MD [address] [place] [address] Araseli Wall Reffered 05/12/2025 11:45 AM EST [place] [address] [facility] [place] [place] [address] [place] [address] [facility] [place] [address] Follow-up 05/21/2025 2:00 PM EST Office Visit Cardiology [address] [facility] [place] [address] [place] [address] [facility] [place] [address] 6 month follow up documented as of this encounter Goals Goal Patient Goal Type Associated Problems Recent Progress Patient-Stated? Author Blood Pressure < 130/80 Blood Pressure 128/82(2024 12:30 PM EDT) Sung Farrell MD documented as of this encounter Visit Diagnoses Not on filedocumented in this encounter Care Teams Hydro Technician Relationship Specialty Start [place] [address] [facility] THI[facility]pe [facility] [place] [address] PCP - General Family Medicine 12/29/23 Jere Sales MD [address] [place] [address] Referring Gastroenterology 12/05/20 Calin Gotti DO [facility] [place] [address] Internal Medicine 10/16/23 documented as of this encounter
--- OUTSIDE RECORDS SUMMARY | 2025-04-02 10:09 | XMS_ITS | Encounter Summary ---
Author Organization [facility] Address [address] [place] [address] Care Team Providers Care Respite Worker Name Role Phone Jere Sales MD Unavailable [phone] Calin Gotti DO Unavailable [phone] Jose Antonio Meyers MD Primary Care Provider [phone] Source Comments In the event this information is protected by the Federal Confidentiality of Alcohol and Drug AbusePatient Records regulations: The Federal rules restrict any use of the information to criminally investigate or prosecute any alcohol or drug abuse patient.[facility] Encounter Details Date Type Department Care Team (Late st Contact Info) Description 02/20/2025 Get Medical Advice Gastroenterology [address] [phone] Araseli Wall APRN.RAIL TRACK MAINTAINER 9500 [place] [address] Willie Harris 1950 Social History Tobacco Use Types Packs/Day Years Used Date Smoking Tobacco: Never Smokeless Tobacco: Never Alcohol Use Standard Drinks/Week Comments Yes 0 (1 standard drink = 0.6 oz pure alcohol) socially, no drink since 06/2023 [facility] Utilities Answer Date Recorded In the past [...] is lower risk 5 12/11/2023 Data from: https://www.neighborhoodatlas.medicine.[facility].edu/. Last address used for calculation [...] 04/05/2025 1:30 PM EDT Appointment Gastroenterology [address] [address] Patrice Frost MD [address] [place] [address] Esophageal dysphagia [R13.19] 05/12/2025 8:25 AM EST Office Visit Gastroenterology [address] [address] Luis Valentine MD [address] [place] [address] Araseli Wall Reffered 05/12/2025 11:45 AM EST [place] [address] [place] [address] [place] [address] [place] [address] Follow-up 05/21/2025 2:00 PM EST Office Visit Cardiology [address] [place] [address] [place] [address] [facility] [place] [address] 6 month follow up documented as of this encounter Goals Goal Patient Goal Type Associated Problems Recent Progress Patient-Stated? Author Blood Pressure < 130/80 Blood Pressure 128/82(2024 12:30 PM EDT) Sung Farrell MD documented as of this encounter Visit Diagnoses Not on filedocumented in this encounter Care Teams Respite Worker Relationship Specialty Start [place] [address] [place] [address] PCP - General Family Medicine 12/29/23 Jere Sales MD [address] [address] Referring Gastroenterology 12/05/20 Calin Gotti DO [address] [place] [address] Internal Medicine 10/16/23 documented as of this encounter
--- OUTSIDE RECORDS SUMMARY | 2025-04-02 10:09 | XMS_ITS | Encounter Summary ---
Author Organization [facility] Address [facility] [place] [address] Care Team Providers Care Coupler Name Role Phone Jere Sales MD Unavailable [phone] Calin Gotti DO Unavailable [phone] Jose Antonio Meyers MD Primary Care Provider [phone] Source Comments In the event this information [...] Medical Advice Pulmonary Medicine [address] [place] [address] Triston Riggs MD 9500 [place] [address] Willie Harris 1950 Steroid Injections Social History Tobacco Use Types Packs/Day Years Used Date Smoking Tobacco: Never Smokeless Tobacco: Never Alcohol Use Standard Drinks/Week Comments Yes 0 (1 standard drink = 0.6 oz pure alcohol) socially, no drink since 06/2023 [facility] Utilities Answer Date Recorded In the [...] risk 5 12/11/2023 Data from: https://www.neighborhoodatlas.medicine.[facility].edu/. Last address used for calculation [address] [...] 04/05/2025 1:30 PM EDT Appointment Gastroenterology [address] [address] Patrice Frost MD [address] [place] [address] Esophageal dysphagia [R13.19] 05/12/2025 8:25 AM EST Office Visit Gastroenterology [address] [address] Luis Valentine MD [address] [place] [address] Araseli Wall Reffered 05/12/2025 11:45 AM EST [place] [address] [place] [address] [place] [address] [place] [address] Follow-up 05/21/2025 2:00 PM EST Office Visit Cardiology [address] [facility] [place] [address] [place] [address] [place] [address] 6 month follow up documented as of this encounter Goals Goal Patient Goal Type Associated Problems Recent Progress Patient-Stated? Author Blood Pressure < 130/80 Blood Pressure 128/82(2024 12:30 PM EDT) Sung Farrell MD documented as of this encounter Visit Diagnoses Not on filedocumented in this encounter Care Teams Coupler Relationship Specialty Start [place] [address] [place] [address] PCP - General Family Medicine 12/29/23 Jere Sales MD [address] [address] Referring Gastroenterology 12/05/20 Calin Gotti DO [address] [place] [address] Internal Medicine 10/16/23 documented as of this encounter
--- OUTSIDE RECORDS SUMMARY | 2025-04-02 10:09 | XMS_ITS | Encounter Summary ---
Author Organization [facility] Address [facility] [place] [address] Care Team Providers Care Emergency Room Nurse Name Role Phone Jere Sales MD Unavailable [phone] Calin Gotti DO Unavailable [phone] Jose Antonio Meyers MD Primary Care Provider [phone] Source Comments In the event this information is protected by the Federal Confidentiality of Alcohol and Drug AbusePatient Records regulations: The Federal rules restrict any use of the information to criminally investigate or prosecute any alcohol or drug abuse patient.[facility] Encounter Details Date Type Department Care Team (Late st Contact Info) Description 01/07/2025 Get Medical [place] [address] [place], [place] [address] [place] [address] [place] [address] Willie Harris 1950 Social History Tobacco Use Types Packs/Day Years Used Date Smoking Tobacco: Never Smokeless Tobacco: Never Alcohol Use Standard Drinks/Week Comments Yes 0 (1 standard drink = 0.6 oz pure alcohol) socially, no drink since 06/2023 [facility] Utilities Answer Date Recorded In the past 12 months has th e [employer], gas, oil, or water company threatened to [...] 04/05/2025 1:30 PM EDT Appointment Gastroenterology [address] [address] Patrice Frost MD 6279 [place] [address] Esophageal dysphagia [R13.19] 05/12/2025 8:25 AM EST Office Visit Gastroenterology [address] [address] Luis Valentine MD [address] [place] [address] Araseli Wall Reffered 05/12/2025 11:45 AM EST [place] [address] [place] [address] [place] [address] [place] [address] Follow-up 05/21/2025 2:00 PM EST Office Visit Cardiology [address] [facility] [place] [address] [place] [address] [facility] [place] [address] 6 month follow up documented as of this encounter Goals Goal Patient Goal Type Associated Problems Recent Progress Patient-Stated? Author Blood Pressure < 130/80 Blood Pressure 128/82(2024 12:30 PM EDT) Sung Farrell MD documented as of this encounter Visit Diagnoses Not on filedocumented in this encounter Care Teams Emergency Room Nurse Relationship Specialty Start [place] [address] [place] [address] PCP - General Family Medicine 12/29/23 Jere Sales MD [address] [address] Referring Gastroenterology 12/05/20 Calin Gotti DO [address] [place] [address] Internal Medicine 10/16/23 documented as of this encounter
--- OUTSIDE RECORDS SUMMARY | 2025-04-02 10:09 | XMS_ITS | Encounter Summary ---
Author Organization [facility] Address [address] [place] [address] Care Team Providers Care Electronic Heat Seal Operator Name Role Phone Jere Sales MD Unavailable [phone] Calin Gotti DO Unavailable [phone] Jose Antonio Meyers MD Primary Care Provider [phone] Source Comments In the event this information is protected by the Federal Confidentiality of Alcohol and Drug AbusePatient Records regulations: The Federal rules restrict any use of the information to criminally investigate or prosecute any alcohol or drug abuse patient.[facility] Encounter Details Date Type Department Care Team (Late st Contact Info) Description 02/16/2025 Patient Msg Gastroenterology [address] [phone] Araseli Wall APRN.GROCERY TEAM MEMBER 9500 [place] [address] Biopsy follow up Social History Tobacco Use Types Packs/Day Years Used Date Smoking Tobacco: Never Smokeless Tobacco: Never Alcohol Use Standard Drinks/Week Comments Yes 0 (1 standard drink = 0.6 oz pure alcohol) socially, no drink since 06/2023 [facility] Utilities Answer Date Recorded In the [...] is lower risk 5 12/11/2023 Data from: https://www.neighborhoodatlas.medicine.[facility].edu/. Last address used for calculation 2230 [...] Assessment Author No 12/26/2023 4:30 PM EDT Olrando Welsh RN * Because of a physical, [...] 1:30 PM EDT Appointment Gastroenterology [address] [address] Patrice Frost MD 4993 [place] [address] Esophageal dysphagia [R13.19] 05/12/2025 8:25 AM EST Office Visit Gastroenterology [address] [address] Luis Valentine MD 4011 [place] [address] Araseli Wall Reffered 05/12/2025 11:45 AM EST [place] [address] [place] [address] [place] [address] [place] [address] Follow-up 05/21/2025 2:00 PM EST Office Visit Cardiology [address] [place] [address] [place] [address] [facility] [address] 6 month follow up documented as of this encounter Goals Goal Patient Goal Type Associated Problems Recent Progress Patient-Stated? Author Blood Pressure < 130/80 Blood Pressure 128/82(2024 12:30 PM EDT) Sung Farrell MD documented as of this encounter Visit Diagnoses Not on filedocumented in this encounter Care Teams Electronic Heat Seal Operator Relationship Specialty Start [place] [address] [place] [address] PCP - General Family Medicine 12/29/23 Jere Sales MD [address] [address] Referring Gastroenterology 12/05/20 Calin Gotti DO [address] [place] [address] Internal Medicine 10/16/23 documented as of this encounter
--- OUTSIDE RECORDS SUMMARY | 2025-04-02 10:09 | XMS_ITS | Encounter Summary ---
Author Organization [facility] Address [address] [place] [address] Care Team Providers Care Highway Painter Name Role Phone Jere Sales MD Unavailable [phone] Calin Gotti DO Unavailable [phone] Jose Antonio Meyers MD Primary Care Provider [phone] Source Comments In the event this information is protected by the Federal Confidentiality of Alcohol and Drug AbusePatient Records regulations: The Federal rules restrict any use of the information to criminally investigate or prosecute any alcohol or drug abuse patient.[facility] Encounter Details Date Type Department Care Team (Latest Contact Info) Description 01/07/2024 Transcribe Orders Respiratory [place] [address] [place] [address] Louise Douglas MD [address] [place], [place] [phone] Chronic bronchitis, unspecified chronic bronchitis type (HCC) (Primary Dx) Social History Tobacco Use Types Packs/Day Years Used Date Smoking Tobacco: Never Smokeless Tobacco: Never [facility] Utilities Answer [...] 04/05/2025 1:30 PM EDT Appointment Gastroenterology [address] [address] Patrice Frost MD 1066 [place] [address] Esophageal dysphagia [R13.19] 05/12/2025 8:25 AM EST Office Visit Gastroenterology [address] [address] Luis Valentine MD [address] [place] [address] Araseli Wall Reffered 05/12/2025 11:45 AM EST [place] [address] [facility] [place] [address] [place] [address] [place] [address] Follow-up 05/21/2025 2:00 PM EST Office Visit Cardiology [address] [place] [address] [place] [address] [place] [address] 6 month follow up documented as of [...] noted slightly increased. Right-sided Pleurx catheter present. Ice Plant Operator: PSCB Transcribe Date/Time: Mar 19 2024 4:42P [...] and soft tissues: Unremarkable. Procedure Note Provider, [facility] [place] - 03/19/2024 * * *Final Report* * [...] noted slightly increased. Right-sided Pleurx catheter present. Ice Plant Operator: PSCB Transcribe Date/Time: Mar 19 2024 4:42P [...] (HCC) documented in this encounter Care Teams Highway Painter Relationship Specialty Start [place] [address] [place] [address] PCP - General Family Medicine 12/29/23 Jere Sales MD [address] [address] Referring Gastroenterology 12/05/20 Calin Gotti DO [address] [place] [address] Internal Medicine 10/16/23 documented as of this encounter
--- OUTSIDE RECORDS SUMMARY | 2025-04-02 10:09 | XMS_ITS | Encounter Summary ---
Author Organization [facility] Address [address] [place] [address] Care Team Providers Care Parlor Chaperone Name Role Phone Dawit Lorenz DO Primary Care Provider [phone] Encounter Details Date Type Department Care Team (Late Contact Info) Description 01/01/2023 Abstract [facility] [address] [facility] [address] [place] [address] Bianca Bynum MD [address] [facility] [address] [place] [address] Social History Tobacco Use Types Packs/Day Years [...] 04/07/2025 2:45 PM EDT Procedure Visit [facility] [address] [place] [phone] Uzair Lubin DPM [address] [place] [address] 08/16/2025 1:30 PM EST Office Visit [facility] [address] [place] [address] Arley Hamilton DO [address] [place] [address] 08/31/2025 1:05 PM EDT Office Visit [facility] [address] [place] [address] Bianca Bynum MD [address] [place] [address] documented as of this encounter Visit Diagnoses Not on filedocumented in this encounter Care Teams Parlor Chaperone Relationship Specialty Start Date End Date Dawit Lorenz DO [address] [facility] [place] [address] PCP - General Internal Medicine 03/12/25 documented as of this encounter
--- OUTSIDE RECORDS SUMMARY | 2025-04-02 10:09 | XMS_ITS | Encounter Summary ---
Author Organization [facility] Address [address] [place] [address] Care Team Providers Care Card Punching Machine Operator Name Role Phone Jere Sales MD Unavailable [phone] Calin Gotti DO Unavailable [phone] Jose Antonio Meyers MD Primary Care Provider [phone] Source Comments In the event this information is protected by the Federal Confidentiality of Alcohol and Drug AbusePatient Records regulations: The Federal rules restrict any use of the information to criminally investigate or prosecute any alcohol or drug abuse patient.[facility] Encounter Details Date Type Department Care Team (Late st Contact Info) Description 01/07/2025 Get Medical Advice Gastroenterology [address] [phone] Araseli Wall APRN.DIRECTOR PHARMACOLOGY [address]00 [place] [address] Willie Harris 1950 Social History Tobacco Use Types Packs/Day Years Used Date Smoking Tobacco: Never Smokeless Tobacco: Never Alcohol Use Standard Drinks/Week Comments Yes 0 (1 standard drink = 0.6 oz pure alcohol) socially, no drink since 06/[address] [facility] Utilities Answer Date Recorded In the [...] lower risk 5 12/11/2023 Data from: https://www.neighborhoodatlas.medicine.[facility].edu/. Last address used for calculation [...] 04/05/2025 1:30 PM EDT Appointment Gastroenterology [address] [address] Patrice Frost MD [address] [place] [address] Esophageal dysphagia [R13.19] 05/12/2025 8:25 AM EST Office Visit Gastroenterology [address] [address] Luis Valentine MD [address] [place] [address] Araseli Wall Reffered 05/12/2025 11:45 AM EST [place] [address] [place] [address] [place] [address] [place] [address] Follow-up 05/21/2025 2:00 PM EST Office Visit Cardiology [address] [facility] [place] [address] [place] [address] [facility] [place] [address] 6 month follow up documented as of this encounter Goals Goal Patient Goal Type Associated Problems Recent Progress Patient-Stated? Author Blood Pressure < 130/80 Blood Pressure 128/82(2024 12:30 PM EDT) Sung Farrell MD documented as of this encounter Visit Diagnoses Not on filedocumented in this encounter Care Teams Card Punching Machine Operator Relationship Specialty Start [place] [address] [place] [address] PCP - General Family Medicine 12/29/23 Jere Sales MD [address] [address] Referring Gastroenterology 12/05/20 Calin Gotti DO [address] [place] [address] Internal Medicine 10/16/23 documented as of this encounter
--- OUTSIDE RECORDS SUMMARY | 2025-04-02 10:09 | XMS_ITS | Encounter Summary ---
Author Organization [facility] Address [facility] [place] [address] Care Team Providers Care Industrial Relations Worker Name Role Phone Jere Sales MD Unavailable [phone] Calin Gotti DO Unavailable [phone] Jose Antonio Meyers MD Primary Care Provider [phone] Source Comments In the event this information is protected by the Federal Confidentiality of Alcohol and Drug AbusePatient Records regulations: The Federal rules restrict any use of the information to criminally investigate or prosecute any alcohol or drug abuse patient.[facility] Encounter Details Date Type Department Care Team (Late st Contact Info) Description 02/19/2025 Patient [facility] HB-3 [address] [place] [address] Salud Trinh RPh At your next appointment, choose [facility]. Social History Tobacco Use Types Packs/Day Years Used Date Smoking Tobacco: Never Smokeless Tobacco: Never Alcohol Use Standard Drinks/Week Comments Yes 0 (1 standard drink = 0.6 oz pure alcohol) socially, no drink since 06/2023 [facility] Utilities Answer Date Recorded In the [...] is lower risk 5 12/11/2023 Data from: https://www.neighborhoodatlas.medicine.[facility].edu/. Last address used for calculation [address] [...] 04/05/2025 1:30 PM EDT Appointment Gastroenterology [address] [address] Patrice Frost MD [address] [place] [address] Esophageal dysphagia [R13.19] 05/12/2025 8:25 AM EST Office Visit Gastroenterology [address] [address] Luis Valentine MD [address] [place] [address] Araseli Wall Reffered 05/12/2025 11:45 AM EST [place] [address] [facility] [place] [address] [place] [address] [address] [address] Follow-up 05/21/2025 2:00 PM EST Office Visit Cardiology [address] [facility] [place] [address] [place] [address] [facility] [place] [address] 6 month follow up documented as of this encounter Goals Goal Patient Goal Type Associated Problems Recent Progress Patient-Stated? Author Blood Pressure < 130/80 Blood Pressure 128/82(2024 12:30 PM EDT) Sung Farrell MD documented as of this encounter Visit Diagnoses Not on filedocumented in this encounter Care Teams Industrial Relations Worker Relationship Specialty Start [place] [address] [facility] [place] [address] PCP - General Family Medicine 12/29/23 Jere Sales MD [address] [address] Referring Gastroenterology 12/05/20 Calin Gotti DO [address] [place] [address] Internal Medicine 10/16/23 documented as of this encounter
--- OUTSIDE RECORDS SUMMARY | 2025-04-02 10:09 | XMS_ITS | Encounter Summary ---
Author Organization [facility] Address [address] [place] [address] Care Team Providers Care International Recruiter Name Role Phone Jere Sales MD Unavailable [phone] Calin Gotti DO Unavailable [phone] Jose Antonio Meyers MD Primary Care Provider [phone] Source Comments In the event this information is protected by the Federal Confidentiality of Alcohol and Drug AbusePatient Records regulations: The Federal rules restrict any use of the information to criminally investigate or prosecute any alcohol or drug abuse patient.[facility] Encounter Details Date Type Department Care Team (Late st Contact Info) Description 02/10/2025 Get Medical Advice Gastroenterology [address] [phone] Araseli Wall APRN.BIOMASS PLANT MANAGER [address] [place] [address] Willie Harris. 1950 Social History Tobacco Use Types Packs/Day Years Used Date Smoking Tobacco: Never Smokeless Tobacco: Never Alcohol Use Standard Drinks/Week Comments Yes 0 (1 standard drink = 0.6 oz pure alcohol) socially, no drink since 06/2023 [facility] Utilities Answer Date Recorded In the [...] place to sleep or slept in a longterm (including now)? No 11/21/2023 Area Deprivation Index Answer Date Hari rded National Score (1-100), lower number is lower ri sk 68 12/11/2023 State Score (1-10), lower number is lower risk 5 12/11/2023 Data from: https://www.neighborhoodatlas.medicine.[facility].edu/. Last address used for calculation 22[address] [...] 04/05/2025 1:30 PM EDT Appointment Gastroenterology [address] [address] Patrice Frost MD [address] [place] [address] Esophageal dysphagia [R13.19] 05/12/2025 8:25 AM EST Office Visit Gastroenterology [address] [address] Luis Valentine MD [address] [place] [address] Araseli Wall Reffered 05/12/2025 11:45 AM EST [place] [address] [place] [address] [place] [address] [place] [address] Follow-up 05/21/2025 2:00 PM EST Office Visit Cardiology [address] [place] [address] [place] [address] [facility] [address] 6 month follow up documented as of this encounter Goals Goal Patient Goal Type Associated Problems Recent Progress Patient-Stated? Author Blood Pressure < 130/80 Blood Pressure 128/82(2024 12:30 PM EDT) Sung Farrell MD documented as of this encounter Visit Diagnoses Not on filedocumented in this encounter Care Teams International Recruiter Relationship Specialty Start [place] [address] [facility] [address] PCP - General Family Medicine 12/29/23 Jere Sales MD [address] [address] Referring Gastroenterology 12/05/20 Calin Gotti DO [address] [place] [address] Internal Medicine 10/16/23 documented as of this encounter
--- OUTSIDE RECORDS SUMMARY | 2025-04-02 10:09 | XMS_ITS | Encounter Summary ---
Author Organization [facility] Address [facility] [place] [address] Care Team Providers Care Financial Adviser Name Role Phone Jere Sales MD Unavailable [phone] Calin Gotti DO Unavailable [phone] Jose Antonio Meyers MD Primary Care Provider [phone] Source Comments In the event this information is protected by the Federal Confidentiality of Alcohol and Drug AbusePatient Records regulations: The Federal rules restrict any use of the information to criminally investigate or prosecute any alcohol or drug abuse patient.[facility] Encounter Details Date Type Department Care Team (Late st Contact Info) Description 02/19/2025 Patient [facility] HB-3 [address] [place] [address] Salud Trinh RPh At your next appointment, choose [facility]. Social History Tobacco Use Types [...] is lower risk 5 12/11/2023 Data from: https://www.neighborhoodatlas.medicine.[facility].edu/. Last address used for calculation [...] 04/05/2025 1:30 PM EDT Appointment Gastroenterology [address] [address] Patrice Frost MD [address] [place] [address] Esophageal dysphagia [R13.19] 05/12/2025 8:25 AM EST Office Visit Gastroenterology [address] [address] Luis Valentine MD [address] [place] [address] Araseli Wall Reffered 05/12/2025 11:45 AM EST [place] [address] [facility] [place] [address] [place] [address] [address] [place] [address] Follow-up 05/21/2025 2:00 PM EST Office Visit Cardiology [address] [facility] [place] [place] [address] [place] [address] [place] [address] 6 month follow up documented as of this encounter Goals Goal Patient Goal Type Associated Problems Recent Progress Patient-Stated? Author Blood Pressure < 130/80 Blood Pressure 128/82(2024 12:30 PM EDT) Sung Farrell MD documented as of this encounter Visit Diagnoses Not on filedocumented in this encounter Care Teams Financial Adviser Relationship Specialty Start [place] [address] [facility] [place] [address] PCP - General Family Medicine 12/29/23 Jere Sales MD [address] [address] Referring Gastroenterology 12/05/20 Calin Gotti DO [address] [place] [address] Internal Medicine 10/16/23 documented as of this encounter
--- OUTSIDE RECORDS SUMMARY | 2025-04-02 10:09 | XMS_ITS | Encounter Summary ---
Author Organization [facility] Address [address] [place] [address] Care Team Providers Care Wage Analyst Name Role Phone Jere Sales MD Unavailable [phone] Calin Gotti DO Unavailable [phone] Jose Antonio Meyers MD Primary Care Provider [phone] Source Comments In the event this information is protected by the Federal Confidentiality of Alcohol and Drug AbusePatient Records regulations: The Federal rules restrict any use of the information to criminally investigate or prosecute any alcohol or drug abuse patient.[facility] Encounter Details Date Type Department Care Team (Late st Contact Info) Description 01/07/2025 Get Medical Advice Cardiology [address] [facility] [place] [address] [place] [address] [facility]. [place], [place] [id number] Willie Harris 1950 Social History Tobacco Use [...] lower risk 5 12/11/2023 Data from: https://www.neighborhoodatlas.medicine.[facility].edu/. Last address used for calculation 2230 [...] encounter Miscellaneous Notes * Telephone Encounter - Beti Mccallum RN - 01/11/2025 11:15 AM EDT Please advise on study results and incidents documented in this encounter Plan of Treatment Upcoming Encounters Date Type Department Care Team (Late st Contact Info) Description 04/05/2025 1:30 PM EDT Appointment Gastroenterology [address] [place] [address] Patrice Frost MD [address] [place] [address] Esophageal dysphagia [R13.19] 05/12/2025 8:25 AM EST Office Visit Gastroenterology [address] [address] Luis Valentine MD [address] [facility] [place] [address] Araseli Wall Reffered 05/12/2025 11:45 AM EST [place] [address] [facility] [place] [address] [place] [address] [facility] [place] [address] Follow-up 05/21/2025 2:00 PM EST Office Visit Cardiology [address] [place] [address] [place] [address] [facility] [place] [address] 6 month follow up documented as of this encounter Goals Goal Patient Goal Type Associated Problems Recent Progress Patient-Stated? Author Blood Pressure < 130/80 Blood Pressure 128/82(2024 12:30 PM EDT) Sung Farrell MD documented as of this encounter Visit Diagnoses Not on filedocumented in this encounter Care Teams Wage Analyst Relationship Specialty Start [place] [address] [facility] [address] PCP - General Family Medicine 12/29/23 Jere Sales MD [address] [address] Referring Gastroenterology 12/05/20 Calin Gotti DO [address] [place] [address] Internal Medicine 10/16/23 documented as of this encounter
--- OUTSIDE RECORDS SUMMARY | 2025-04-02 10:09 | XMS_ITS | Encounter Summary ---
Author Organization [facility] Address [address] [place] [address] Care Team Providers Care Police Cadet Name Role Phone Jere Sales MD Unavailable [phone] Calin Gotti DO Unavailable [phone] Jose Antonio Meyers MD Primary Care Provider [phone] Source Comments In the event this information is protected by the Federal Confidentiality of Alcohol and Drug AbusePatient Records regulations: The Federal rules restrict any use of the information to criminally investigate or prosecute any alcohol or drug abuse patient.[facility] Encounter Details Date Type Department Care Team (Late st Contact Info) Description 01/26/2025 Patient Msg Angio [address] [place] [address] Provider, [facility] Instructions for procedure on 02/02/2025 Social History Tobacco Use Types Packs/Day Years Used Date Smoking Tobacco: Never Smokeless Tobacco: Never Alcohol Use Standard Drinks/Week Comments Yes 0 (1 standard drink = 0.6 oz pure alcohol) socially, no drink since 06/2023 [facility] Utilities Answer Date Recorded In [...] 04/05/2025 1:30 PM EDT Appointment Gastroenterology [address] [address] Patrice Frost MD [address] [place] [address] Esophageal dysphagia [R13.19] 05/12/2025 8:25 AM EST Office Visit Gastroenterology [address] [address] Luis Valentine MD [address] [place] [address] Araseli Wall Reffered 05/12/2025 11:45 AM EST [place] [address] [facility] [place] [address] [place] [address] [facility] [place] [address] Follow-up 05/21/2025 2:00 PM EST Office Visit Cardiology [address] [facility] [place] [address] [place] [address] [facility] [place] [address] 6 month follow up documented as of this encounter Goals Goal Patient Goal Type Associated Problems Recent Progress Patient-Stated? Author Blood Pressure < 130/80 Blood Pressure 128/82(2024 12:30 PM EDT) Sung Farrell MD documented as of this encounter Visit Diagnoses Not on filedocumented in this encounter Care Teams Police Cadet Relationship Specialty Start [place] [address] [facility] [place] [address] PCP - General Family Medicine 12/29/23 Jere Sales MD [address] [place] [address] Referring Gastroenterology 12/05/20 Calin Gotti DO [address] [place] [address] Internal Medicine 10/16/23 documented as of this encounter
--- OUTSIDE RECORDS SUMMARY | 2025-04-02 10:09 | XMS_ITS | Encounter Summary ---
Author Organization [facility] Address [address] [place] [address] Care Team Providers Care Consultant Luxury And Auto. Vice President [employer] (Ex ) Name Role Phone Jere Sales MD Unavailable [phone] Calin Gotti DO Unavailable [phone] Jose Antonio Meyers MD Primary Care Provider [phone] Source Comments In the event this information is protected by the Federal Confidentiality of Alcohol and Drug AbusePatient Records regulations: The Federal rules restrict any use of the information to criminally investigate or prosecute any alcohol or drug abuse patient.[facility] Encounter Details Date Type Department Care Team (Late st Contact Info) Description 10/07/2024 Get Medical Advice Pulmonary Medicine [address] [place], [place] [phone] Katerina Pascual PA-C [address] [place] [address] Willie Harris 1950 Social History Tobacco Use Types Packs/Day Years Used Date Smoking Tobacco: Never Smokeless Tobacco: Never Alcohol Use Standard Drinks/Week Comments Yes 0 (1 standard drink = 0.6 oz pure alcohol) socially, no drink since 06/2023 [facility] Utilities Answer Date Recorded In the [...] is lower risk 5 12/11/2023 Data from: https://www.neighborhoodatlas.medicine.[facility].edu/. Last address used for calculation 2230 [...] 1:30 PM EDT Appointment Gastroenterology [address] [address] Patrice Frost MD 9984 [place] [address] Esophageal dysphagia [R13.19] 05/12/2025 8:25 AM EST Office Visit Gastroenterology [address] [address] Luis Valentine MD [address] [place] [address] Araseli Wall Reffered 05/12/2025 11:45 AM EST [place] [address] [place] [address] [place] [address] [place] [address] Follow-up 05/21/2025 2:00 PM EST Office Visit Cardiology [address] [facility] [place] [address] [place] [address] [facility] [place] [address] 6 month follow up documented as of this encounter Goals Goal Patient Goal Type Associated Problems Recent Progress Patient-Stated? Author Blood Pressure < 130/80 Blood Pressure 128/82(2024 12:30 PM EDT) Sung Farrell MD documented as of this encounter Visit Diagnoses Not on filedocumented in this encounter Care Teams Consultant Luxury And Auto. Vice President [employer] (Ex ) Relationship Specialty Start [place] [address] [place] [address] PCP - General Family Medicine 12/29/23 Jere Sales MD [address] [address] Referring Gastroenterology 12/05/20 Calin Gotti DO [address] [place] [address] Internal Medicine 10/16/23 documented as of this encounter
--- OUTSIDE RECORDS SUMMARY | 2025-04-02 10:10 | XMS_ITS | Clinical Summary ---
Author Organization [employer] [facility] Address [id number] [place] [address] Care Team Providers Care Cyanide Case Hardener Name Role Phone Unavailable Primary Care Provider [...]
--- OUTSIDE RECORDS SUMMARY | 2025-04-02 10:10 | XMS_ITS | Encounter Summary ---
Author Organization [facility] Address [address] [place] [address] Care Team Providers Care Centerless Grinder Name Role Phone Jere Sales MD Unavailable [phone] Calin Gotti DO Unavailable [phone] Jose Antonio Meyers MD Primary Care Provider [phone] Source Comments In the event this information is protected by the Federal Confidentiality of Alcohol and Drug AbusePatient Records regulations: The Federal rules restrict any use of the information to criminally investigate or prosecute any alcohol or drug abuse patient.[facility] Encounter Details Date Type Department Care Team (Late st Contact Info) Description 03/17/2025 Patient Msg Gastroenterology [address] [place] [phone] Aure Giraldo MD [address]00 [place] [address] upper endoscopy 03/24 Social History Tobacco Use Types Packs/Day Years [...] is lower risk 5 12/11/2023 Data from: https://www.neighborhoodatlas.medicine.[facility].edu/. Last address used for calculation 2230 [...] 1:30 PM EDT Appointment Gastroenterology [address] [address] Patrice Frost MD [address] [place] [address] Esophageal dysphagia [R13.19] 05/12/2025 8:25 AM EST Office Visit Gastroenterology [address] [address] Luis Valentine MD [address]677 [place] [address] Araseli Wall Reffered 05/12/2025 11:45 AM EST [place] [address] [place] [address] [place] [address] [place] [address] Follow-up 05/21/2025 2:00 PM EST Office Visit Cardiology [address] [facility] [place] [address] [place] [address] [place] [address] 6 month follow up documented as of this encounter Goals Goal Patient Goal Type Associated Problems Recent Progress Patient-Stated? Author Blood Pressure < 130/80 Blood Pressure 128/82(2024 12:30 PM EDT) Sung Farrell MD documented as of this encounter Visit Diagnoses Not on filedocumented in this encounter Care Teams Centerless Grinder Relationship Specialty Start [place] [address] [place] [address] PCP - General Family Medicine 12/29/23 Jere Sales MD [address] [address] Referring Gastroenterology 12/05/20 Calin Gotti DO [address] [place] [address] Internal Medicine 10/16/23 documented as of this encounter
--- OUTSIDE RECORDS SUMMARY | 2025-04-02 10:10 | XMS_ITS | Encounter Summary ---
Author Organization [facility] Address [address] [place] [address] Care Team Providers Care Repossession Agent Name Role Phone Jere Sales MD Unavailable [phone] Calin Gotti DO Unavailable [phone] Jose Antonio Meyers MD Primary Care Provider [phone] Source Comments In the event this information is protected by the Federal Confidentiality of Alcohol and Drug AbusePatient Records regulations: The Federal rules restrict any use of the information to criminally investigate or prosecute any alcohol or drug abuse patient.[facility] Reason for Referral * Outpatient Procedure (Routine) - Authorized Specialty Diagnoses / Procedures Referred By Contac t Referred To Contact [facility] Diagnoses Esophageal dysphagia Esophageal dysmotility Procedures EGD - THERAPEUTIC, EUS, OR TUBE INTERVENTIONS EGD BAND LIGATION ESOPHGEAL/GASTRIC VARICES Sue Terrell MD [address]00 [place] [address] Phone: tel: fax: [facility] [address] [place] [address] Referral ID Status Reason Start Date Expiration Date Visits Requested Visits Authorized [id number] Authorized Auto-Generat ed Referral 03/25/2025 03/25/2026 1 1 Encounter Details Date Type Department Care Team (Late st Contact Info) Description 03/24/2025 Results Follow-Up Gastroenterology [address] [address] Sue Terrell MD [address] [place] [address] Social History Tobacco Use Types Packs/Day Years Used Date Smoking Tobacco: Never Smokeless Tobacco: Never Alcohol Use Standard Drinks/Week Comments Yes 0 (1 standard drink = 0.6 oz pure alcohol) socially, no drink since 06/2023 [facility] Utilities Answer Date Recorded In the past 12 months has th e electric, gas, oil, or water [employer] threatened to shut off services in your [...] 5 12/11/2023 Data from: https://www.neighborhoodatlas.[facility]/. Last address used for calculation 2230 [...] Orlando Coley RN documented in this encounter Miscellaneous Notes * Telephone Encounter - Britney Hsu RN - 03/30/2025 3:46 PM EDT Chest XR 03/29/2025 IMPRESSION: 1. Streaky scarring/discoid atelectasis in the left lower lung field, new since 01/08/25. 2. Trace right pleural effusion with hazy opacities in the right lung base, stable. Patient sent [employer] message with update of patient status Based on patient current status advised patients ([employer]) he should go to ED to be evaluated. stated patient PCP is aware and had patient have a chest xray to r/o a pleurral effusion. Will discuss with provider and follow up as needed. Patients verbalized understanding and agreed. Briteny Shen RN * Telephone Encounter - Britney Hsu RN - 03/25/2025 8:56 AM EDT ----- Message from Sue Terrell MD sent at 03/24/2025 5:04 PM EDT ----- Please order EGD for variceal banding ----- Message ----- From: Katie Latham Orcaterina Ib Sent: 03/24/2025 12:13 PM EDT To: Sue Terrell MD documented in this encounter Plan of Treatment Upcoming Encounters Date Type Department Care Team (Late st Contact Info) Description 04/05/2025 1:30 PM EDT Appointment Gastroenterology [address] [phone] Patrice Frost MD [address] [place] [address] Esophageal dysphagia [R13.19] 05/12/2025 8:25 AM EST Office Visit Gastroenterology [address] [address] Luis Valentine MD [address] [place] [address] Araseli Wall Reffered 05/12/2025 11:45 AM EST [place] [address] [facility] [place] [address] [place] [address] [facility] [place] [address] Follow-up 05/21/2025 2:00 PM EST Office Visit Cardiology [address] [place] [address] [place] [address] [place] [address] 6 month follow up Scheduled Orders Name Type Priority Associated Diagnoses Orde r Schedule EGD - THERAPEUTIC, EUS, OR TUBE INTERVENTIONS Endoscopy Routine Esophageal dysphagia Esophageal dysmotility 1 Occurrences starting 03/25/2025 until 03/25/2026 documented as of this encounter Goals Goal Patient Goal Type Associated Problems Recent Progress Patient-Stated? Author Blood Pressure < 130/80 Blood Pressure 128/82(2024 12:30 PM EDT) Sung Farrell MD documented as of this encounter Visit Diagnoses Diagnosis Esophageal dysphagia- Primary Dysphagia, pharyngoesophageal phase Esophageal dysmotility Dyskinesia of esophagus documented in this encounter Care Teams Repossession Agent Relationship Specialty Start [place] [address] [facility] [place] [address] PCP - General Family Medicine 12/29/23 Jere Sales MD [address] [address] Referring Gastroenterology 12/05/20 Calin Gotti DO [address] [place] [address] Internal Medicine 10/16/23 documented as of this encounter
--- OUTSIDE RECORDS SUMMARY | 2025-04-02 10:10 | XMS_ITS | Encounter Summary ---
Author Organization [facility] Address [address] [place] [address] Care Team Providers Care Computer Specialist Name Role Phone Jere Sales MD Unavailable [phone] Calin Gotti DO Unavailable [phone] Jose Antonio Meyers MD Primary Care Provider [phone] Source Comments In the event this information is protected by the Federal Confidentiality of Alcohol and Drug AbusePatient Records regulations: The Federal rules restrict any use of the information to criminally investigate or prosecute any alcohol or drug abuse patient.[facility] Encounter Details Date Type Department Care Team (Late st Contact Info) Description 07/07/2024 Get Medical Advice Gastroenterology [address] [phone] Sue Terrell MD 9500 [place] [address] Willie Kimberly Social History Tobacco Use Types Packs/Day Years Used Date Smoking Tobacco: Never Smokeless Tobacco: Never Alcohol Use Standard Drinks/Week Comments Yes 0 (1 standard drink = 0.6 oz pure alcohol) socially, no drink since 06/2023 [facility] Utilities Answer Date Recorded In [...] risk 5 12/11/2023 Data from: https://www.neighborhoodatlas.medicine.[facility].edu/. Last address used for calculation [...] 04/05/2025 1:30 PM EDT Appointment Gastroenterology [address] [address] Patrice Frost MD 0173 [place] [address] Esophageal dysphagia [R13.19] 05/12/2025 8:25 AM EST Office Visit Gastroenterology [address] [address] Luis Valentine MD 1436 [place] [address] Araseli Wall Reffered 05/12/2025 11:45 AM EST [place] [address] [place] [address] [place] [address] [place] [address] Follow-up 05/21/2025 2:00 PM EST Office Visit Cardiology [address] [facility] [place] [address] [place] [address] [facility] [place] [address] 6 month follow up documented as of this encounter Goals Goal Patient Goal Type Associated Problems Recent Progress Patient-Stated? Author Blood Pressure < 130/80 Blood Pressure 128/82(2024 12:30 PM EDT) Sung Farrell MD documented as of this encounter Visit Diagnoses Not on filedocumented in this encounter Care Teams Computer Specialist Relationship Specialty Start [place] [address] [place] [address] PCP - General Family Medicine 12/29/23 Jere Sales MD [address] [address] Referring Gastroenterology 12/05/20 Calin Gotti DO [address] [place] [address] Internal Medicine 10/16/23 documented as of this encounter
--- OUTSIDE RECORDS SUMMARY | 2025-04-02 10:10 | XMS_ITS | Patient Health Record ---
Author Organization [facility] [place] Address [address] [place] [address] Care Team Providers Care Skiagrapher Name Role Phone Dawit Lorenz DO Primary Care Provider Tasneem fernandez ShenCalin Unavailable [phone] Allergies Allergen (clinical drug ingredient) Drug/Non Drug [...] a day Active Atorvastatin Calcium 10 MG Oral; Duration: 90 Days Active Zinc 30 MG 1 tablet Orally Once a day Active Budesonide 3 MG TAKE 3 CAPSULES BY M OUTH ONCE DAILY FOR 60 DAYS THEN 2 CAPSULES ONCE DAILY FOR 15 DAYS THEN 1 CAPSULE ONCE DAILY FOR 7 DAYS Oral; Duration: 82 Days Active guaiFENesin-Codeine 100-10 MG/5ML TAKE 10 ML BY MOUTH EVERY 6 HOURS NEEDED FOR COUGH FOR 7 DAYS Oral; Duration: 7 Days Active MAGnesium-Oxide 400 (240 Mg) MG TAKE 1 TABLET BY MOUTH TWICE DAILY Oral; Duration: 30 Days Active Furosemide 40 MG TAKE 1 TABLET BY CRISTI ONCE DAILY AT 2 PM Oral; Duration: 30 Days Active Allopurinol 300 MG Oral; Duration: 90 Days Active Potassium Chloride Khloe ER 20 MEQ Oral; Duration: 30 Days Acti ve Aspirin 81 MG 1 tablet Orally Once a day Active Torsemide 100 MG Oral; Duration: 90 Days Active Multi Complete - as directed Orally Active Omeprazole 20 MG Oral; Duration: 90 Days Active Immunizations Vaccine Route Administration Date Status Comme nts Arexvy Unknown 05/27/2024 Administered Flu, Fluad (18809) 65 yrs + High Dose Seasonal (3024-3453) Unknown 05/27/2024 Administered Flu, Fluad (32618) 65 yrs + Trivalent (6039-6852) Unknown 05/09/2020 Administered Pneumococcal (Pneumovax 23) Unknown [...] Risk Notes Problem Erythrocyte sedimentation rate raised (050366304) Elevated erythrocyte sedimentation rate (R70.0) Active confirmed Problem Hyperlipidemia (21270009) Hyperlipidemia (E78.5) Active confirmed Problem Coronary artery disease (54079244) CAD (coronary artery disease) (I25.10) Active confirmed Problem Pleural effusion (55464340) Pleural effusion (J90) Active confirmed Problem Multiple pulmonary nodules (111660260) Multiple pulmonary nodules (R91.8) Active confirmed Problem Calcified lymph nodes (317722638) Calcified lymph nodes (I89.8) Active confirmed Problem Pericardial effusion (613128578) Pericardial effusion (I31.39) Active confirmed Vital Signs Heart Rate 83 /min 07/21/2024 Temperature 97.0 degrees Fahrenheit 07/21/2024 Respiratory Rate 18 /min 07/21/2024 Oximetry 96.8 % 07/21/2024 Blood pressure diastolic 73 mm Hg 07/21/2024 Height 72 in 07/21/2024 Blood pressure systolic 113 mm Hg 07/21/2024 Weight 196.4 lbs 07/21/2024 BMI 26.63 kg/m2 07/21/2024 Encounters Encounter Location Date Provider Diagnosis Pulmonary Medicine [place] [address] [place] [address] 07/21/2024 Calin Gotti Pleural effusion J90 Assessments [...] able to offer would be referral to [facility] in [place], [place] for a third opinion. At this time, I am not contributing anything additional to his therapy. He will follow-up as needed. 07/21/2024 Other Plan Of Treatment No Information Insurance Providers Payer Name Payer Address Payer Phone Subscriber Number Group Number Insured Name Patient Relationship to Insured Coverage Start Date Coverage End Date [employer] MED[employer]ARE [address] [place], [place] [id number] Bryan Harris Self - patient is the [...]
--- OUTSIDE RECORDS SUMMARY | 2025-04-02 10:10 | XMS_ITS | Encounter Summary ---
Author Organization [facility] Address [address] [place] [address] Care Team Providers Care Nanofabrication Specialist Name Role Phone Jere Sales MD Unavailable [phone] Calin Gotti DO Unavailable [phone] Joes Antonio Meyers MD Primary Care Provider [phone] Source Comments In the event this information is protected by the Federal Confidentiality of Alcohol and Drug AbusePatient Records regulations: The Federal rules restrict any use of the information to criminally investigate or prosecute any alcohol or drug abuse patient.[facility] Encounter Details Date Type Department Care Team (Late st Contact Info) Description 12/23/2024 Get Medical Advice Gastroenterology [address] [phone] Araseli Wall APRN.WRAPPING MACHINE OPERATOR [address] [place] [address] Willie Harris 1950 Social History Tobacco Use Types Packs/Day Years Used Date Smoking Tobacco: Never Smokeless Tobacco: Never Alcohol Use Standard Drinks/Week Comments Yes 0 (1 standard drink = 0.6 oz pure alcohol) socially, no drink since 06/2023 [facility] Utilities Answer Date Recorded In [...] 04/05/2025 1:30 PM EDT Appointment Gastroenterology [address] [address] Patrice Frost MD 4891 [place] [address] Esophageal dysphagia [R13.19] 05/12/2025 8:25 AM EST Office Visit Gastroenterology [address] [address] Luis Valentine MD [address] [place] [address] Araseli Wall Reffered 05/12/2025 11:45 AM EST [place] [address] [place] [address] [place] [address] [place] [address] Follow-up 05/21/2025 2:00 PM EST Office Visit Cardiology [address] [facility] [place] [address] [place] [address] [facility] [place] [address] 6 month follow up documented as of this encounter Goals Goal Patient Goal Type Associated Problems Recent Progress Patient-Stated? Author Blood Pressure < 130/80 Blood Pressure 128/82(2024 12:30 PM EDT) Sung Farrell MD documented as of this encounter Visit Diagnoses Not on filedocumented in this encounter Care Teams Nanofabrication Specialist Relationship Specialty Start [place] [address] [place] [address] PCP - General Family Medicine 12/29/23 Jere Sales MD [address] [address] Referring Gastroenterology 12/05/20 Calin Gotti DO [address] [place] [address] Internal Medicine 10/16/23 documented as of this encounter
--- OUTSIDE RECORDS SUMMARY | 2025-04-02 10:10 | XMS_ITS | Encounter Summary ---
Author Organization [facility] Address [address] [place] [address] Care Team Providers Care Soldering Technician Name Role Phone Jere Sales MD Unavailable [phone] Calin Gotti DO Unavailable [phone] Jose Antonio Meyers MD Primary Care Provider [phone] Source Comments In the event this information is protected by the Federal Confidentiality of Alcohol and Drug AbusePatient Records regulations: The Federal rules restrict any use of the information to criminally investigate or prosecute any alcohol or drug abuse patient.[facility] Encounter Details Date Type Department Care Team (Late st Contact Info) Description 03/17/2025 Patient Msg Gastroenterology [address] [place] [address] Provider, [facility] EGD Prep Instructions Social History Tobacco Use Types Packs/Day Years Used Date Smoking Tobacco: Never Smokeless Tobacco: Never Alcohol Use Standard Drinks/Week Comments Yes 0 (1 standard drink = 0.6 oz pure alcohol) socially, no drink since 06/[address] [facility] Utilities Answer Date Recorded In the [...] 04/05/2025 1:30 PM EDT Appointment Gastroenterology [address] [address] Patrice Frost MD [address] [place] [address] Esophageal dysphagia [R13.19] 05/12/2025 8:25 AM EST Office Visit Gastroenterology [address] [address] Luis Valentine MD [address] [place] [address] Araseli Wall Reffered 05/12/2025 11:45 AM EST [place] [address] [facility] [place] [address] [place] [address] [facility] [place] [address] Follow-up 05/21/2025 2:00 PM EST Office Visit Cardiology [address] [facility] [place] [address] [place] [address] [place] [address] 6 month follow up documented as of this encounter Goals Goal Patient Goal Type Associated Problems Recent Progress Patient-Stated? Author Blood Pressure < 130/80 Blood Pressure 128/82(2024 12:30 PM EDT) Sung Farrell MD documented as of this encounter Visit Diagnoses Not on filedocumented in this encounter Care Teams Soldering Technician Relationship Specialty Start [place] [address] [facility] [address] PCP - General Family Medicine 12/29/23 Jere Sales MD [address] [address] Referring Gastroenterology 12/05/20 Calin Gotti DO [address] [place] [address] Internal Medicine 10/16/23 documented as of this encounter
--- OUTSIDE RECORDS SUMMARY | 2025-04-02 10:10 | XMS_ITS | Encounter Summary ---
Author Organization [facility] Address [address] [place] [address] Care Team Providers Care Dialysis Technician Name Role Phone Jere Sales MD Unavailable [phone] Calin Gotti DO Unavailable [phone] Jose Antonio Meyers MD Primary Care Provider [phone] Source Comments In the event this information is protected by the Federal Confidentiality of Alcohol and Drug AbusePatient Records regulations: The Federal rules restrict any use of the information to criminally investigate or prosecute any alcohol or drug abuse patient.[facility] Reason for Visit * Reason Comments Radiology XR Encounter Details Date Type Department Care Team (Late st Contact Info) Description 08/13/2024 Radiology Radiology 5700 [place], [place] [id number] Joan Hillman, RT(R) Radiology XR Social History [...] is lower risk 5 12/11/2023 Data from: https://www.neighborhoodatlas.medicine.[facility].edu/. Last address used for calculation [...] PATIENT PRESENTS WITH AN IMPLANTABLE OR ATTACHED GLASS BLOWER: No RADIOLOGY DEPARTMENT: General X-ray: Exam(s) Completed: Chest X-Ray PERIPHERAL IV DATA: Not applicable SIGNED BY: RT Gaviota(R) August 13, 2024 9:43 AM documented in this encounter Plan of Treatment Upcoming Encounters Date Type Department Care Team (Late st Contact Info) Description 04/05/2025 1:30 PM EDT Appointment Gastroenterology [address] [place] [address] Patrice Frost MD 6744 [place], [place] [id number] Esophageal dysphagia [R13.19] 05/12/2025 8:25 AM EST Office Visit Gastroenterology [address] [place] [address] Luis Valentine MD 5148 [place], [place] [id number] Araseli Wall Reffered 05/12/2025 11:45 AM EST [place] [address] [facility] [place] [address] [place] [address] [address] [place], [place] [address] Follow-up 05/21/2025 2:00 PM EST Office Visit Cardiology [address] [place] [address] [place] [address] [facility] [place] [address] 6 month follow up documented as of this encounter Goals Goal Patient Goal Type Associated Problems Recent Progress Patient-Stated? Author Blood Pressure < 130/80 Blood Pressure 128/82(2024 12:30 PM EDT) Sung Farrell MD documented as of this encounter Visit Diagnoses Not on filedocumented in this encounter Care Teams Dialysis Technician Relationship Specialty Start [place] [address] [facility] [place] [address] PCP - General Family Medicine 12/29/23 Jere Sales MD [address] [address] Referring Gastroenterology 12/05/20 Calin Gotti DO [address] [place] [address] Internal Medicine 10/16/23 documented as of this encounter
[2025-04-02 10:11] LABS: Anion Gap 15.2; Blood Urea Nitrogen 31.0 mg/dL (7.0-18.0); Calcium 9.1 mg/dL (8.5-10.1); Carbon Dioxide 24.6 mmol/L (21.0-32.0); Chloride 101 mmol/L (98-107); Estimated GFR (African America 47 (>=60 mL/min/1.73m^2); Estimated GFR (Non-African Ame 39 (>=60 mL/min/1.73m^2); Glucose 109 mg/dL (74-106); Hematocrit 34.3 % (42.0-54.0); Hemoglobin 11.1 g/dL (14.0-18.0); Immature Granulocytes Abs Auto 0.06 10^3/uL (0.00-0.03); Immature Granulocytes Pct Auto 0.5 % (0.0-0.5); Lymphocytes Absolute Auto 0.9 10^3/uL (1.2-3.8); Mean Corpuscular HGB Conc 32.4 g/dL (29.9-35.2); Mean Corpuscular Hemoglobin 31.3 pg (25.9-34.0); Mean Corpuscular Volume 96.6 fL (80.0-94.0); Platelet Count 241 10^3/uL (150-450); Potassium 4.8 mmol/L (3.5-5.1); Red Blood Count 3.55 10^6/uL (4.70-6.10); Sodium 136 mmol/L (136-145); White Blood Count 12.7 10^3/uL (4.0-11.0)
--- OUTSIDE RECORDS SUMMARY | 2025-04-02 10:11 | XMS_ITS | Encounter Summary ---
Author Organization [facility] Address [address] [place] [address] Care Team Providers Care Licensed Real Estate Broker Name Role Phone Jere Sales MD Unavailable [phone] Calin Gotti DO Unavailable [phone] Jose Antonio Meyers MD Primary Care Provider [phone] Source Comments In the event this information is protected by the Federal Confidentiality of Alcohol and Drug AbusePatient Records regulations: The Federal rules restrict any use of the information to criminally investigate or prosecute any alcohol or drug abuse patient.[facility] Encounter Details Date Type Department Care Team (Late st Contact Info) Description 04/27/2024 GI Preprocedure Call [facility] [place] [address] [place] [address] Ronnie Haddad Jr., [address] [place] [address] Social History Tobacco Use Types Packs/Day Years Used Date Smoking Tobacco: Never Smokeless Tobacco: Never Alcohol Use Standard Drinks/Week Comments Yes 0 (1 standard drink = 0.6 oz pure alcohol) socially, no drink since 06/2023 [facility] Utilities Answer Date Recorded In [...] risk 5 12/11/2023 Data from: https://www.neighborhoodatlas.medicine.[facility].edu/. Last address used for calculation 22[address] [...] Date Author No 12/26/2023 4:30 PM EDT rOlando Welsh RN documented in this encounter Plan of Treatment Upcoming Encounters Date Type Department Care Team (Late st Contact Info) Description 04/05/2025 1:30 PM EDT Appointment Gastroenterology [address] [address] Patrice Frost MD [address] [place] [address] Esophageal dysphagia [R13.19] 05/12/2025 8:25 AM EST Office Visit Gastroenterology [address] [address] Luis Valentine MD [address] [place] [address] Araseli Wall Reffered 05/12/2025 11:45 AM EST [place] [address] [place] [address] [place] [address] [place] [address] Follow-up 05/21/2025 2:00 PM EST Office Visit Cardiology [address] [facility] [place] [address] [place] [address] [facility] [place] [address] 6 month follow up documented as of this encounter Goals Goal Patient Goal Type Associated Problems Recent Progress Patient-Stated? Author Blood Pressure < 130/80 Blood Pressure 128/82(2024 12:30 PM EDT) Sung Farrell MD documented as of this encounter Visit Diagnoses Not on filedocumented in this encounter Care Teams Licensed Real Estate Broker Relationship Specialty Start [place] [address] [facility] [place] [address] PCP - General Family Medicine 12/29/23 Jere Sales MD [address] [address] Referring Gastroenterology 12/05/20 Calin Gotti DO [address] [place] [address] Internal Medicine 10/16/23 documented as of this encounter
--- OUTSIDE RECORDS SUMMARY | 2025-04-02 10:11 | XMS_ITS | Encounter Summary ---
Author Organization [facility] Address [address] [place] [address] Care Team Providers Care Hydroelectric Component Machinist Name Role Phone Jere Sales MD Unavailable [phone] Calin Gotti DO Unavailable [phone] Jose Antonio Meyers MD Primary Care Provider [phone] Source Comments In the event this information is protected by the Federal Confidentiality of Alcohol and Drug AbusePatient Records regulations: The Federal rules restrict any use of the information to criminally investigate or prosecute any alcohol or drug abuse patient.[facility] Encounter Details Date Type Department Care Team (Late st Contact Info) Description 11/12/2024 Get Medical Advice Gastroenterology [address] [address] Provider, Migel Harris 1950 Social History Tobacco [...] 04/05/2025 1:30 PM EDT Appointment Gastroenterology [address] [address] Patrice rFost MD [address] [place] [address] Esophageal dysphagia [R13.19] 05/12/2025 8:25 AM EST Office Visit Gastroenterology [address] [address] Luis Valentine MD [address] [place] [address] Araslei Wall Reffered 05/12/2025 11:45 AM EST [place] [address] [facility] [place] [address] [place] [address] [facility] [place] [address] Follow-up 05/21/2025 2:00 PM EST Office Visit Cardiology [address] [facility] [place] [address] [place] [address] [facility] [address] 6 month follow up documented as of this encounter Goals Goal Patient Goal Type Associated Problems Recent Progress Patient-Stated? Author Blood Pressure < 130/80 Blood Pressure 128/82(2024 12:30 PM EDT) Sung Farrell MD documented as of this encounter Visit Diagnoses Not on filedocumented in this encounter Care Teams Hydroelectric Component Machinist Relationship Specialty Start [place] [address] [facility] [place] [address] PCP - General Family Medicine 12/29/23 Jere Sales MD [address] [address] Referring Gastroenterology 12/05/20 Calin Gotti DO [address] [place] [address] Internal Medicine 10/16/23 documented as of this encounter
--- OUTSIDE RECORDS SUMMARY | 2025-04-02 10:11 | XMS_ITS | Encounter Summary ---
Author Organization [facility] Address [address] [place] [address] Care Team Providers Care Japanese Tutor Name Role Phone Jere Sales MD Unavailable [phone] Calin Gotti DO Unavailable [phone] Jose Antonio Meyers MD Primary Care Provider [phone] Source Comments In the event this information is protected by the Federal Confidentiality of Alcohol and Drug AbusePatient Records regulations: The Federal rules restrict any use of the information to criminally investigate or prosecute any alcohol or drug abuse patient.[facility] Encounter Details Date Type Department Care Team (Late st Contact Info) Description 04/24/2024 Get Medical Advice Rheumatology [address] [place] [phone] Jailyn aMhoney MD 9500 [place] [address] Willie Kimberly Social History Tobacco Use Types Packs/Day Years Used Date Smoking Tobacco: Never Smokeless Tobacco: Never Alcohol Use Standard Drinks/Week Comments Yes 0 (1 standard drink = 0.6 oz pure alcohol) socially, no drink since 06/2023 [facility] Utilities Answer Date Recorded In [...] is lower risk 5 12/11/2023 Data from: https://www.neighborhoodatlas.medicine.[facility].edu/. Last address used for calculation [address] [...] 12/26/2023 4:30 PM EDT Sheri Welsh RN * Do you have serious [...] 04/05/2025 1:30 PM EDT Appointment Gastroenterology [address] [address] Patrice Frost MD 2240 [place] [address] Esophageal dysphagia [R13.19] 05/12/2025 8:25 AM EST Office Visit Gastroenterology [address] [address] Luis Valentine MD 5984 [place] [address] Araseli Wall Reffered 05/12/2025 11:45 AM EST [place] [address] [place] [address] [place] [address] [place] [address] Follow-up 05/21/2025 2:00 PM EST Office Visit Cardiology [address] [facility] [place] [address] [place] [address] [facility] [address] 6 month follow up documented as of this encounter Goals Goal Patient Goal Type Associated Problems Recent Progress Patient-Stated? Author Blood Pressure < 130/80 Blood Pressure 128/82(2024 12:30 PM EDT) Sung Farrell MD documented as of this encounter Visit Diagnoses Diagnosis Hypokalemia- Primary Hypopotassemia documented in this encounter Care Teams Japanese Tutor Relationship Specialty Start [place] [address] [place] [address] PCP - General Family Medicine 12/29/23 Jere Sales MD [address] [address] Referring Gastroenterology 12/05/20 Calin Gotti DO [address] [place] [address] Internal Medicine 10/16/23 documented as of this encounter
--- OUTSIDE RECORDS SUMMARY | 2025-04-02 10:11 | XMS_ITS | Encounter Summary ---
Author Organization [facility] Address [address] [facility] [address] Care Team Providers Care Plastic Mixer Name Role Phone KelechiDawit Pepe MATA Primary Care Provider [phone] Encounter Details Date Type Department Care Team (Late st Contact Info) Description 03/25/2025 Bamboo flowsheet [facility] [address] [address] Uzair Lubin DPM [address] [place] [address] Social History Tobacco Use Types Packs/Day Years Used Date Smoking Tobacco: Never Smokeless Tobacco: Never Sex and Gender Information Value Date Recorded Sex Assigned at Not on file Legal Sex Male 7:25 PM EDT Gender Identity Not on file Sexual Orientation Not on file documented as of this encounter Plan of Treatment Upcoming Encounters Date Type Department Care Team (Late st Contact Info) Description 04/07/2025 2:45 PM EDT Procedure Visit [facility] [address] [place] [phone] Uzair Lubin DPM [address] [place], [place] [id number] 08/16/2025 1:30 PM EST [facility] [address] [place] [phone] Arley Hamilton DO [address] [place] [address] 08/31/2025 1:05 PM EDT Office Visit [facility] [address] [place] [address] Bianca Bynum MD [address] [place] [address] documented as of this encounter Visit Diagnoses Not on filedocumented in this encounter Care Teams Plastic Mixer Relationship Specialty Start Date End Date Dawit Lorenz DO [address] [facility] [place] [id number] PCP - General Internal Medicine 03/12/25 documented as of this encounter
--- OUTSIDE RECORDS SUMMARY | 2025-04-02 10:11 | XMS_ITS | Clinical Summary ---
Author Organization [facility] Address [address] [place] [address] Care Team Providers Care Feather Cutting Machine Feeder Name Role Phone Jere Sales MD Unavailable [phone] Calin Gotti DO Unavailable [phone] Jose Antonio Meyers MD Primary Care Provider [phone] Allergies Active Allergy Reactions Criticality Noted Date Comments Adhesive Tape-Silicones Intolerance 02/02/2025 Pt developed petechiae/blood blister/skin tear from EKG stickers. Tramadol Mental Status Change Low 12/15/2020 Medications allopurinol (ZYLOPRIM) 300 mg tablet Take 300 mg by mouth once daily. 10/22/19 21 Active calcium coi-dbe-E5-Zn-co p-kian 250 mg-40 mg- 125 unit-3.75mg tab Take by mouth. Active ascorbic acid, vitamin C, (VITAMIN C) 500 mg tablet Take 1,000 mg by mouth once daily. Active multivit-min/anna jeanna fumarate (MULTI VITAMIN ORAL) Take 1 tablet by mouth once daily. Active guaifenesin/dext romethorphan (MUCINEX DM ORAL) Take by mouth two times a day. Active loratadine (CLARITIN) 10 mg tablet Take 10 mg by mouth once daily. Active atorvastatin (LIPITOR) 10 mg tablet Take 10 mg by mouth once daily. Active quiNINE 324 mg capsuleIndicatio ns:Cramp and spasm Take 1 capsule by mouth two times a day. 180 capsule 01/27/20 25 Active mirabegron (MYRBETRIQ) 50 mg [id number]: Urge incontinence Take 1 tablet by mouth every evening. 90 tablet 1 01/27/[address] (PROTONIX) 40 mg tablet Take 1 tablet by mouth once daily. 02/23/20 Active famotidine (PEPCID) 20 mg tablet Take 20 mg by mouth daily at bedtime. 02/23/20 Active torsemide (DEMADEX) 100 mg tabletIndication s:Recurrent 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,Anasarca Take 0.5 tablets by mouth once daily. 90 tablet 1 03/09/20 25 025 Active amoxicillin-clav ulanate potassium (AUGMENTIN) 875-125 mg per tablet Take 1 tablet by mouth every 12 hours. Active torsemide (DEMADEX) 100 mg tabletIndication s:Recurrent 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,Anasarca Take 1 tablet by mouth once daily. 90 tablet 1 11/14/19 25 025 Discontinued metOLazone (ZAROXOLYN) 5 mg tabletIndication s:Anasarca Take 1 tablet by mouth once daily. 90 tablet 11/14/19 25 025 Discontinued potassium chloride ER (KLOR-CON M20) 20 mEq tabletIndication s:Hypokalemia Take 2 tablets by mouth three times a day. 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 Problem Noted Date Diagnosed Date Stage 3a chronic kidney disease 01/26/2025 FLOYD (acute kidney injury) 10/15/2024 Esophageal dysphagia [...] Encounters Date Type Department Care Team Description 03/29/2025 12:55 PM EDT - 03/29/2025 11:59 PM EDT Hospital Encounter Radiology [address] [place] [address] [place] [address] Pleural effusion, not elsewhere classified [J90] Discharge Disposition: Home 03/24/2025 11:30 AM EDT Nurse Visit Gastroenterology [address] [id number], Nurse Gi Lab Esophageal dysphagia 03/24/2025 9:38 AM EDT - 03/24/2025 11:59 PM EDT Hospital Encounter Gastroenterology [address] [phone] Aure Giraldo MD Esophageal dysmotility [K22.4] Discharge Disposition: Home 03/24/2025 Results Follow-Up Gastroenterology [address] [address] Sue Terrell MD 03/18/2025 Orders Only Gastroenterology [address] [address] Sue Terrell MD Esophageal dysphagia (Primary Dx) 03/17/2025 Patient Msg Gastroenterology [address] [phone] Provider, [facility] EGD Prep Instructions 03/17/2025 GI Preprocedure Call Gastroenterology [address] [phone] Evans King RN 03/17/2025 Patient Msg Gastroenterology [address] [address] Aure Giraldo MD upper endoscopy 03/2403/16/2025 4:30 PM EDT Office Visit Gastroenterology [address] [address] Sue Terrell MD Esophageal dysmotility (Primary Dx); Esophageal dysphagia 03/09/2025 1:15 PM EDT [place] [address] [place] [address] Jose Antonio Meyers MD Mixed connective tissue disease (HCC) (Primary Dx); Bruising; Primary hypertension; Stage 3a chronic kidney disease (HCC); Peripheral edema; Recurrent 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; Anasarca 03/05/2025 Travel 03/04/2025 Telephone Thoracic Clinic [address] [place] [address] Ronaldo Ramos MD, PhD Faxed Discharge Home Care Order 03/03/2025 [place] [address] [facility] [place] [address] Jose Antonio Meyers MD Generalized edema (Primary Dx); Pleural effusion 02/25/2025 10:20 AM EDT Office Visit [facility] [address] [address] Ar Suarez MD FLOYD (acute kidney injury) (Primary Dx); Screening for genitourinary condition; Elevated serum creatinine; Decreased GFR; Generalized edema; Pleural effusion, not elsewhere classified 02/25/2025 Patient Outreach [facility] [address] [place] [address] Ar Suarez MD 02/20/2025 Get Medical Advice Gastroenterology [address] [address] Araseli Wall RN COMPLEX CARE.CURT Harris 1950 02/19/2025 1:11 PM EDT - 02/19/2025 11:59 PM EDT Hospital Encounter Radiology [address] [address] Other ascites [R18.8] Discharge Disposition: Home 02/19/2025 Patient [facility] HB[facility] [place] [address] Salud Trinh RPh At your next appointment, choose [facility]. 02/19/2025 Patient [facility] HB[facility] [place] [address] Salud Trinh RPh At your next appointment, choose [facility]. 02/17/2025 Get Medical Advice Gastroenterology [address] [address] Araseli Wall, RN COMPLEX CARE.CURT Harris. 1950 02/16/2025 Patient [facility] [address] [address] Araseli Wall RN COMPLEX CARE.CAR REFINISHER Biopsy follow up 02/10/2025 Get Medical Advice Gastroenterology [address] [address] Araseli Wall, LETICIA.CURT Harris. 1950 02/02/2025 9:30 AM EDT - 02/02/2025 11:20 AM EDT Surgery Angio [address] [place] [address] Isaiah Pinto MD TRANSCATHETER BIOPSY 02/02/2025 7:05 AM EDT - 02/02/2025 11:30 AM EDT Hospital Encounter HOSP MAIN FB36 [address] [place] [address] Isaiah Pinto MD Elevated alkaline phosphatase level [R74.8] Discharge Disposition: Home 02/02/2025 Travel 01/26/2025 1:00 PM EDT [place] [address] [facility] [place] [address] Jose Antonio Meyers MD Metabolic encephalopathy (Primary Dx); Stage 3a chronic kidney disease (HCC); Primary hypertension; Lymphocytic colitis; Generalized edema; Orthostatic hypotension; Cramp and spasm; Urge incontinence 01/26/2025 Patient Msg Angio [address] [place] [address] Provider, [facility] Instructions for procedure on 02/02/2025 01/19/2025 [place] [address] [place] [address] Jose Antonio Meyers MD 01/12/2025 [place] [address] [place] [address] Jose Antonio Meyers MD Refill Request 01/11/2025 9:30 AM EDT Office Visit Pulmonary Medicine [address] [address] Triston Riggs MD Pleural effusion (Primary Dx); Pleuritis; Pericardial effusion (noninflammatory) (HCC); History of pericarditis; Lymphocytic colitis 01/08/2025 12:35 PM EDT - 01/08/2025 11:59 PM EDT Hospital Encounter Radiology [address] [place] [address] [place] [address] Pleural effusion, not elsewhere classified [J90] Discharge Disposition: Home 01/07/2025 Get Medical Advice Gastroenterology [address] [address] Araseli Wall, LETICIA.CURT Harris 1950 01/07/2025 Get [place] [address] [place] [address] Jose Antonio Meyers MD Stan Moyer 1950 01/07/2025 Get Medical Advice Cardiology [address] [place] [address] Nemesio Clemente MD Stan Moyer 1950 from Last 3 Months Immunizations Immunization Administration Dates Next Due COVID-19 original vaccine, a ge 12+ yr, monovalent ([employer]-BIONTECH - PURPLE TOP) 09/13/2020,08/22/2020,08/15/2020 influenza (HD-IIV3) vaccine, [...] Recorded In the past 12 months has [employer], [employer], oil, or water [place] [employer] threatened to shut off services in your [...] risk 5 12/11/2023 Data from: https://www.neighborhoodatlas.medicine.[facility].edu/. Last address used for calculation 2230 12/11/2023 Sex and Gender Information Value Date Recorded Sex Assigned at Male 01/07/2025 12:44 PM EDT Legal Sex Male 12:24 PM EDT Gender Identity Male 01/07/2025 12:44 PM EDT Sexual Orientation Not on file Last Filed [...] Mass Index 26.45 03/24/2025 10:53 AM EDT Plan of Treatment Upcoming Encounters Date Type Department Care Team (Late st Contact Info) Description 04/05/2025 1:30 PM EDT Appointment Gastroenterology [address] [place] [address] Patrice Frost MD [address] [place] [address] Esophageal dysphagia [R13.19] 05/12/2025 8:25 AM EST Office Visit Gastroenterology [address] [place] [address] Luis Valentine MD [address] [place], [place] [phone] Araseli Duke Reffered 05/12/2025 11:45 AM EST [place] [address] [place], [place] [id number] [place] [address] [place] [address] Follow-up 05/21/2025 2:00 PM EST Office Visit Cardiology [address] [place] [address] [place] [address] [facility] [place] [address] 6 month follow up Health Maintenance Due Date Last Done Comments Anxiety Screening 1969 Depression Screening 1969 Hepatitis A Vaccine (1 of 2 - Risk 2-dose series) 1970 CT Colonography 1996 Cologuard (FIT-DNA) 1996 Fecal Occult Blood 1996 Sigmoidoscopy 1996 Hepatitis B Vaccine (1 of 3 - Risk 3-dose series) 2011 Advance Directive Discussion 06/17/2024 Medicare Advantage Annual Wellness Visit 06/17/2024 Covid-19 Vaccine (2024-2 6 season) 2025 05/10/2021, 09/13/2020, 08/22/2020, Additional history exists Influenza Vaccine (#1) 2025 , 05/27/2024, 05/09/2020, Additional history exists Colonoscopy 04/28/2025 04/28/2024, 04/28/2024 Colorectal Cancer Screening 04/28/2025 Hemoglobin/Hematocrit 01/25/2026 01/25/2025 , 01/08/2025, 11/12/2024, Additional history exists Annual PCP Team Chronic Dise ase Visit 03/09/2026 03/09/2025 Serum Creatinine 03/26/2026 03/26/2025, , 02/11/2025, Additional history exists Diabetes Screening 03/26/2028 03/26/2025, 0 03/05/2025, 02/11/2025, Additional history exists Lipid Screening 05/18/2029 05/18/2024, 12/20/2023 DTaP,Tdap,Td Vaccine (2 - Td or Tdap) 05/27/2034 05/27/2024, 08/30/2018, 06/04/2018 Pneumococcal Vaccine: 50+ Completed 02/03/2018, 05/2017 Shingrix Vaccine Discontinued 08/30/2018 RSV Vaccine Completed 05/27/2024 Hepatitis C Screening Completed 01/08/2025 , 11/17/2024, 11/17/2024 Goals Goal Patient Goal Type Associated Problems Recent Progress Patient-Stated? Author Blood Pressure < 130/80 Blood Pressure 128/82(2024 12:30 PM EDT) Sung Farrell MD Medical Devices Implanted Type Area Pocket Assembler Device Identifier Shelf Expiration Date Model / Serial / Lot Catheter Catheter Right: Chest Description:Pleur-x catheter Joint - Knee Joint - Knee Bilateral : Bone - Knee Screw Screw Right: Bone - Wrist Procedures Procedure Name Priority Date/Time Associated Diagnosis Comments XR CHEST 2V FRONTAL/LAT Routine 03/29/2025 1:09 PM EDT Pleural effusion, not elsewhere classified PLATELET AGGREGATION INTERP Routine 03/26/2025 10:42 AM EDT Bruising EXTRA LAV MAN COAG TUBE Routine 03/26/2025 10:42 AM EDT Bruising PLATELET AGGREGATION Routine 03/26/2025 10:42 AM EDT Bruising PLATELET AGGREGATION PANEL Routine 03/26/2025 10:42 AM EDT Bruising BASIC METABOLIC PANEL Routine 03/26/2025 10:42 AM EDT Stage 3a chronic kidney disease (HCC) EGD - THERAPEUTIC, EUS, OR TUBE INTERVENTIONS Routine 03/24/2025 11:48 AM EDT Esophageal dysmotility MANOMETRY ESOPHAGEAL Routine 03/24/2025 Esophageal dysphagia COMPREHENSIVE METABOLIC PANEL Routine 03/05/2025 11:14 AM EDT Generalized edema Pleural effusion UA DIP, URINE (POC) Routine 02/25/2025 1 0:05 AM EDT Screening for genitourinary condition US DOPPLER COMPLETE Routine 02/19/2025 1 :47 PM EDT Other ascites US ABD LIVER VASCULAR Routine 02/19/2025 1:47 PM EDT Other ascites COMPREHENSIVE METABOLIC PANEL Routine 02/11/2025 11:12 AM EDT Stage 3a chronic kidney disease (HCC) IR TRANSJUGULAR LIVER BX W/PRESS Routine 02/02/2025 10:19 AM EDT Elevated alkaline phosphatase level SURGICAL PATHOLOGY Routine 02/02/2025 10 :11 AM EDT Elevated alkaline phosphatase level TRANSVASCULAR BIOPSY 02/02/2025 8:40 AM EDT Elevated alkaline phosphatase level MAGNESIUM BLD Routine 01/25/2025 11:00 AM EDT Hypomagnesemia BASIC METABOLIC PANEL Routine 01/25/2025 11:00 AM EDT Dyslipidemia COMPLETE BLOOD COUNT Routine 01/25/2025 11:00 AM EDT Anemia, unspecified type XR CHEST 2V FRONTAL/LAT Routine 01/08/2025 12:43 PM EDT Pleural effusion, not elsewhere classified HEP B CORE AB TOTAL Routine 01/08/2025 1 2:33 PM EDT Elevated alkaline phosphatase level HEP B SURF AB QUAL Routine 01/08/2025 12 :33 PM EDT Elevated alkaline phosphatase level HEP B SURF AG SCRN Routine 01/08/2025 12 :33 PM EDT Elevated alkaline phosphatase level HEPATITIS C ANTIBODY IA WITH CONFIRMATION Routine 01/08/2025 12:33 PM EDT Elevated alkaline phosphatase level PROTHROMBIN TIME Routine 01/08/2025 12:3 3 PM EDT Elevated alkaline phosphatase level COMPLETE BLOOD COUNT Routine 01/08/2025 12:33 PM EDT Elevated alkaline phosphatase level COMPREHENSIVE METABOLIC PANEL Routine 01/08/2025 12:33 PM EDT Elevated alkaline phosphatase level GGT BLD Routine 01/08/2025 12:33 PM EDT Elevated alkaline phosphatase level CMV IGM AB Routine 01/08/2025 12:33 PM EDT Elevated alkaline phosphatase level LIVER-KIDNEY MICROSOME ANTIBODY, IGG Routine 01/08/2025 12:33 PM EDT Elevated alkaline phosphatase level MITOCHONDRIAL AB SCR Routine 01/08/2025 12:33 PM EDT Elevated alkaline phosphatase level SMOOTH MUSCLE AB SCR Routine 01/08/2025 12:33 PM EDT Elevated alkaline phosphatase level GREY BY IFA WITH REFLEX Routine 01/08/2025 12:33 PM EDT Elevated alkaline phosphatase level HEP REMOTE PANEL BL Routine 01/08/2025 1 2:33 PM EDT Elevated alkaline phosphatase level FERRITIN BLD Routine 01/08/2025 12:33 PM EDT Elevated alkaline phosphatase level IRON + TIBC Routine 01/08/2025 12:33 PM EDT Elevated alkaline phosphatase level [id number] BL Routine 01/08/2025 12:33 PM EDT Elevated alkaline phosphatase level CHOLESTEROL BFL Routine 05/18/2024 12:52 PM EST Pleural effusion COLONOSCOPY (THERAPEUTIC) Routine 04/28/2024 11:16 AM EST from Last 3 Months or Most Recently Relevant to Health Maintenance Results * XR CHEST 2V FRONTAL/LAT (03/29/2025 [...] any questions regarding this interpretation, please call [phone]. If you are unable to reach us at the number above, please feel free to contact [facility] at [phone]. Narrative 03/30/2025 12:40 PM EDT * * [...] and soft tissues: Unremarkable. Procedure Note Provider, [facility] - 03/30/2025 * * *Final Report* * [...] any questions regarding this interpretation, please call [phone]. If you are unable to reach us at the number above, please feel free to contact [facility] eRadiology at [phone]. us Triston Riggs MD RAD-PAMA Final Result * (ABNORMAL) PLATELET AGGREGATION (03/26/2025 10:42 AM EDT) ADP 5 uM Max Aggregation 57(L) 65 - 93 % Max 03/30/2025 7:48 AM EDT [facility] ATP Release by ADP 5 uM 0.4 0.1 - 1.3 nM 03/30/2025 7:48 AM EDT [facility] ADP 20 uM Max Aggregation 73 71 - 94 % Max 03/30/2025 7:48 AM EDT [facility] ATP Release by ADP 20 uM 0.8 0.1 - 1.4 nM 03/30/2025 7:48 AM T [facility] Arachidonic Acid Max Aggregation 80 75 - 100 % Max 03/30/2025 7:48 AM EDT [facility] ATP Release by Arachidonic Acid 0.7 0.4 - 2.0 nM 03/30/2025 7:48 AM EDT [facility] Collagen Max Aggregation 70(L) 74 - 99 % Max 03/30/2025 7:48 AM EDT [facility] ATP Release by Collagen 0.6 0.4 - 1.7 nM 03/30/2025 7:48 AM EDT [facility] Epinephrine 10 uM Max Aggregation 73 70 - 97 % Max 03/30/2025 7:48 AM EDT [facility] ATP Release by Epinephrine 10 uM 0.3 0.2 - 1.6 nM 03/30/2025 7:48 AM EDT [facility] Epinephrine 100 Max Aggregation 76 70 - 99 % Max 03/30/2025 7:48 AM EDT [facility] ATP Release by Epinephrine 100 uM 0.7 0.2 - 1.7 nM 03/30/2025 7:48 AM EDT [facility] THROMBOXANE A2 3 UM MAX AGGREGATION 64 58 - 93 % Max 03/30/2025 7:48 AM EDT [facility] ATP RELEASE BY THROMBOXANE A2 0.4 0.2 - 1.4 nM 03/30/2025 7:48 AM EDT [facility] THROMBIN 1 UNIT ATP RELEASE 1.0 >0.5 03/30/2025 7:48 AM EDT [facility] Risto 1500 u/mL Max Aggregation 85 76 - 100 % Max 03/30/2025 7:48 AM EDT [facility] Risto 1200 u/mL Max Aggregation 82 76 - 100 % Max 03/30/2025 7:48 AM EDT [facility] Risto 900 u/mL Max Aggregation 75 50 - 100 % Max 03/30/2025 7:48 AM EDT [facility] Risto 500u/mL Max Aggregation 4 0 - 9 % Max 03/30/2025 7:48 AM EDT [facility] Blood BLOOD SPECIMEN / Unknown Venipuncture / Unknown 03/26/2025 10:42 AM EDT 03/26/2025 10:43 AM EDT us Jose Antonio Meyers MD LABORATORY Final Resul t Performing Organization Address City/[facility]/ZIP Co de Phone Number [facility] [address] [place] [address], [place] * EXTRA LAV MAN COAG TUBE (03/26/2025 10:42 AM EDT) Blood BLOOD SPECIMEN / Unknown Venipuncture / Unknown 03/26/2025 10:42 AM EDT 03/26/2025 10:43 AM EDT us Jose Antonio Meyers MD LABORATORY Final Resul t Performing Organization Address City/[facility]/ZIP Co de Phone Number [facility] [address] [place] [address], [place] * PLATELET AGGREGATION INTERP (03/26/2025 10:42 AM EDT) Interpretation (Platelet Aggregation) Abnormal - see comment below. A laboratory study of platelet aggregation and stimulated granule release was performed. Based on review of a peripheral blood smear, the platelet estimate is normal and the platelet morphology is normal. PLATELET AGGREGATION: There is slightly decreased aggregation to the following tested agonists, including ADP (5 M) and collagen (2 g/ml), with normal aggregation to the remaining tested agonists, including ADP (20 M), arachidonic acid (0.5 mg/ml), epinephrine (10 M), epinephrine (100 M), and thromboxane A2 (3 M). There is normal stimulated dense granule release to the remaining tested agonists, including ADP (5 M), ADP (20 M), arachidonic acid (0.5 mg/ml), collagen (2 g/ml), epinephrine (10 M), epinephrine (100 M), thromboxane A2 (3 M), and thrombin (1 U/mL). The ristocetin-ind uced platelet aggregation shows a normal dose response. SUMMARY: The pattern is not indicative of a specific diagnosis, but Glanzmann thrombasthenia , Jose Soulier Disease and platelet dense granule storage pool disorder are unlikely. The mildly decreased aggregation response to low dose ADP and collagen is of doubtful significance. Please correlate these laboratory results with clinical findings and medication history. 03/29/2025 6:39 PM EDT [facility] Plt Aggreg Pathologist Interp Reviewed by Edmund Lehman MD 03/29/2025 6:39 PM EDT [facility] Blood BLOOD SPECIMEN / Unknown Venipuncture / Unknown 03/26/2025 10:42 AM EDT 03/26/2025 10:43 AM EDT us Jose Antonio Meyers MD LABORATORY Final Resul t [facility] [address] [place] [address], * (ABNORMAL) BASIC METABOLIC PANEL (03/26/2025 10:42 AM EDT) Only the most recent of2 resultswithin the time period is included. Glucose 110(H) 74 - 99 mg/dL 03/26/2025 12:16 PM EDT [facility] Comment: The [place] [employer] Association (ADA) provides guidance for cutoff [...] Standards of Medical Care in Diabetes 2016, [place] [employer]. Diabetes Care. 2016.39(Suppl 1). BUN 34(H) 9 - 24 mg/dL 03/26/2025 12:16 PM [facility] Creatinine 1.59(H) 0.73 - 1.22 mg/dL 03/26/2025 12:16 PM [facility] Sodium 133(L) 136 - 144 mmol/L 03/26/2025 12:16 PM [facility] Potassium 3.8 3.7 - 5.1 mmol/L 03/26/2025 12:16 PM [facility] Chloride 96(L) 98 - 107 mmol/L 03/26/2025 12:16 PM [facility] CO2 24 22 - 30 mmol/L 03/26/2025 12:16 PM [facility] Anion Gap 13 8 - 15 mmol/L 03/26/2025 12:16 PM [facility] Calcium, Total 8.7 8.5 - 10.2 mg/dL 03/26/2025 12:16 PM [facility] Estimated Glomerular Filtration Rate 45(L) >=60 mL/min/1. 73m 03/26/2025 12:16 PM [facility] Comment:Estimated Glomerular Filtration Rate (eGFR) is calculated [...] BLOOD SPECIMEN / Unknown Venipuncture / Unknown 03/26/2025 10:42 AM EDT 03/26/2025 10:43 AM EDT us Jose Antonio Meyers MD LABORATORY Final Resul t [facility] [address] [facility] [place] [address], [place] * EGD - THERAPEUTIC, EUS, OR TUBE INTERVENTIONS (03/24/2025 11:48 AM EDT) Anatomical Region Laterality Modality Other 03/24/2025 11:4 8 AM EDT Narrative 03/24/2025 12:15 PM EDT A31 Gastrointestinal Endoscopy Patient Name: Bryan Harris Procedure Date: 03/24/2025 11:48 AM Date of : 1950 Admit Type: Outpatient Age: 75 Room: [place] [address] Gender: Male Note Status: Finalized Attending MD: Aure Giraldo MD, [id number] Procedure: Upper GI endoscopy Indications: Dysphagia Providers: [...] the patient. Procedure Code(s): --- Professional --- 87875, Esophagogastroduodenoscopy, flexible, transoral; with insertion of guide wire followed by passage of dilator(s) through esophagus over guide wire Diagnosis Code(s): --- Professional --- I85.00, Esophageal varices without bleeding K76.6, Portal hypertension K31.89, Other diseases of stomach and duodenum R13.10, Dysphagia, unspecified CPT copyright 2020 [employer]. All rights reserved. The codes documented in this report are preliminary and upon timber framer helper review may be revised to meet current [...] Terrell MD DIGESTIVE DISEASE Final Result * MANOMETRY ESOPHAGEAL (03/24/2025) Anatomical Region Laterality Modality Other Implant/Device/Fo reign Body 03/24/2025 Narrative 03/24/2025 Patient: Byran Harris [id number] Gender: Male Physician: Aure Giraldo MD / Age: 0903/13/1950 Head Sawyer: Julien Saleh LPN Height: Referring Physician: Sue [...] Motility Normal Number of swallows evaluated 10 [place] Classification % failed 0 % weak 0 [...] Terrell MD DIGESTIVE DISEASE Final Result * (ABNORMAL) COMPREHENSIVE METABOLIC PANEL (03/05/2025 11:14 AM EDT) Only the most recent of3 resultswithin the time period is included. Protein, Total 6.8 6.3 - 8.0 g/dL 03/05/2025 11:52 AM EDT [facility] Albumin 4.0 3.9 - 4.9 g/dL 03/05/2025 11:52 AM EDT [facility] Calcium, Total 8.7 8.5 - 10.2 mg/dL 03/05/2025 11:52 AM EDT [facility] Bilirubin, Total 0.6 0.2 - 1.3 mg/dL 03/05/2025 11:52 AM EDT [facility] Alkaline Phosphatase 117(H) 38 - 113 U/L 03/05/2025 11:52 AM EDT [facility] AST <5(L) 14 - 40 U/L 03/05/2025 11:52 AM EDT [facility] ALT 16 10 - 54 U/L 03/05/2025 11:52 AM EDT [facility] Glucose 144(H) 74 - 99 mg/dL 03/05/2025 11:52 AM EDT [facility] Comment: The [place] [employer] (ADA) provides guidance for cutoff [...] Standards of Medical Care in Diabetes 2016, [place] [employer]. Diabetes Care. 2016.39(Suppl 1). BUN 22 9 - 24 mg/dL 03/05/2025 11:52 AM EDT [facility] Creatinine 1.23(H) 0.73 - 1.22 mg/dL 03/05/2025 11:52 AM EDT [facility] Sodium 132(L) 136 - 144 mmol/L 03/05/2025 11:52 AM EDT [facility] Potassium 4.9 3.7 - 5.1 mmol/L 03/05/2025 11:52 AM EDT [facility] Chloride 99 98 - 107 mmol/L 03/05/2025 11:52 AM EDT [facility] CO2 23 22 - 30 mmol/L 03/05/2025 11:52 AM EDT [facility] Anion Gap 10 8 - 15 mmol/L 03/05/2025 11:52 AM EDT [facility] Estimated Glomerular Filtration Rate 62 >=60 mL/min/1. 73m 03/05/2025 11:52 AM EDT [facility] Comment:Estimated Glomerular Filtration Rate (eGFR) [...] BLOOD SPECIMEN / Unknown Venipuncture / Unknown 03/05/2025 11:14 AM EDT 03/05/2025 11:15 AM EDT us Jose Antonio Meyers MD LABORATORY Final Resul t [facility] [address] [place] [address] * UA DIP, URINE (POC) (02/25/2025 10:05 AM EDT) GLUCOSE UA (POCT) Negative Negative mg/dL [facility] BILIRUBIN UA (POCT) Negative Negative [facility] KETONE UA (POCT) Negative Negative mg/dL [facility] SPECIFIC GRAVITY UA (POCT) 1.015 1.005 - 1.030 [facility] HEMOGLOBIN/BLOOD UA (POCT) Negative Negative [facility] PH UA (POCT) 7.0 4.5 - 8.0 [facility] PROTEIN UA (POCT) Negative Negative mg/dL [facility] UROBILINOGEN UA (POCT) 0.2 Normal E.U./dL [facility] NITRITE UA (POCT) Negative Negative [facility] LEUKOCYTES UA (POCT) Negative Negative [facility] COLOR UA (POCT) Light yellow [facility] CLARITY UA (POCT) Clear [facility] Urine specimen (specimen) URINE SPECIMEN / Unknown 02/25/2025 10:05 AM EDT Narrative [facility] POINT OF CARE - 02/25/2025 10:05 AM EDT Location:[facility], [address] [place] [address], [facility] us Ar Suarez MD POC TESTING Final Resu lt [facility] POINT OF CARE [address] * US ABD LIVER VASCULAR (02/19/2025 1:47 PM EDT) Anatomical Region Laterality Modality Abdomen Ultrasound 02/19/2025 1:47 PM EDT Impressions 02/19/2025 3:17 PM EDT IMPRESSION: Cirrhotic liver morphology. No lesion. Patent hepatic vasculature with appropriately directed flow. Small volume abdominal ascites around the liver and in right lower quadrant. Radiology Technician: PSCB Transcribe Date/Time: Feb 19 2025 1:53P Dictated by : LISBETH REBOLLAR MD This examination was interpreted and the report reviewed and electronically signed by: LONNIE ANN MD on Feb 19 2025 3:15PM EST Narrative 02/19/2025 3:17 PM EDT * * *Final Report* * * DATE OF EXAM: Feb 19 2025 1:47PM RITA [id number] - US ABD LIVER VASCULAR / PROCEDURE REASON: Other ascites * * * * Physician Interpretation * * * * EXAMINATION: LIVER VASCULAR ULTRASOUND WITH DOPPLER IMAGING CLINICAL HISTORY: [place] liver biopsy 02/02/2025: Hepatic parenchyma with zone 3 patchy sinusoidal dilatation, patchy dilated/angulated portal vein branches, and pericellular fibrosis. TECHNIQUE: Sonography of the liver with color and spectral Doppler imaging of the hepatic vasculature was performed. Images were obtained and stored in a permanent archive. MQ: USLV_1 COMPARISON: Ultrasound 11/23/2024. RESULT: Sonographic Findings: Pancreas: Normal sonographic appearance. Portions obscured: tail Liver: Echotexture: Mildly coarsened Echogenicity: Mildly heterogeneous Surface contour: Nodular Lesions: None. Biliary: No intrahepatic biliary duct dilation. CBD: 0.3 cm at the hilum. Gallbladder: Normal caliber -Contents: No cholelithiasis -Wall: Normal -Other: No pericholecystic fluid. Right Kidney: No hydronephrosis. Spleen: Craniocaudal length 11.2 cm, normal. There are no splenic lesions. Other: Small volume abdominal ascites around the liver and in right lower quadrant. HEPATIC VASCULATURE: PORTAL SYSTEM: -Splenic Vein: Patent with antegrade flow (towards the liver). -Main PV: Patent with normal, phasic antegrade flow (towards liver). 26.4 cm/sec -Right anterior PV: Patent with phasic antegrade flow (towards liver). -Right posterior PV: Patent with phasic antegrade flow (towards liver). -Left PV: Patent with phasic antegrade flow (towards liver). Splenorenal shunt: No Recannulized paraumbilical vein: No HEPATIC ARTERIES: - Main BLACKBURN: Normal waveform PSV: 45 cm/sec. RI: 0.81 - Right anterior BLACKBURN: Normal waveform - Right posterior BLACKBURN: Normal waveform - Left BLACKBURN: Normal waveform Hepatic Veins: -Left: Patent with triphasic waveform. -Middle: Patent with triphasic waveform. -Right: Patent with triphasic waveform. IVC: Patent with normal, phasic wave form. Procedure Note Provider, [facility] [place] - 02/19/2025 * * *Final Report* * * DATE OF EXAM: Feb 19 2025 1:47PM RITA [id number] - US [facility] LIVER VASCULAR / PROCEDURE REASON: Other ascites * * * * Physician Interpretation * * * * EXAMINATION: LIVER VASCULAR ULTRASOUND WITH DOPPLER IMAGING CLINICAL HISTORY: [place] liver biopsy 02/02/2025: Hepatic parenchyma with zone 3 patchy sinusoidal dilatation, patchy dilated/angulated portal vein branches, and pericellular fibrosis. TECHNIQUE: Sonography of the liver with color and spectral Doppler imaging of the hepatic vasculature was performed. Images were obtained and stored in a permanent archive. MQ: USLV_1 COMPARISON: Ultrasound 11/23/2024. RESULT: Sonographic Findings: Pancreas: Normal sonographic appearance. Portions obscured: tail Liver: Echotexture: Mildly coarsened Echogenicity: Mildly heterogeneous Surface contour: Nodular Lesions: None. Biliary: No intrahepatic biliary duct dilation. CBD: 0.3 cm at the hilum. Gallbladder: Normal caliber -Contents: No cholelithiasis -Wall: Normal -Other: No pericholecystic fluid. Right Kidney: No hydronephrosis. Spleen: Craniocaudal length 11.2 cm, normal. There are no splenic lesions. Other: Small volume abdominal ascites around the liver and in right lower quadrant. HEPATIC VASCULATURE: PORTAL SYSTEM: -Splenic Vein: Patent with antegrade flow (towards the liver). -Main PV: Patent with normal, phasic antegrade flow (towards liver). 26.4 cm/sec -Right anterior PV: Patent with phasic antegrade flow (towards liver). -Right posterior PV: Patent with phasic antegrade flow (towards liver). -Left PV: Patent with phasic antegrade flow (towards liver). Splenorenal shunt: No Recannulized paraumbilical vein: No HEPATIC ARTERIES: - Main BLACKBURN: Normal waveform PSV: 45 cm/sec. RI: 0.81 - Right anterior BLACKBURN: Normal waveform - Right posterior BLACKBURN: Normal waveform - Left BLACKBURN: Normal waveform Hepatic Veins: -Left: Patent with triphasic waveform. -Middle: Patent with triphasic waveform. -Right: Patent with triphasic waveform. IVC: Patent with normal, phasic wave form. IMPRESSION IMPRESSION: Cirrhotic liver morphology. No lesion. Patent hepatic vasculature with appropriately directed flow. Small volume abdominal ascites around the liver and in right lower quadrant. Radiology Technician: ALONSO Transcribe Date/Time: Feb 19 2025 1:53P Dictated by : LISBETH REBOLLAR MD This examination was interpreted and the report reviewed and electronically signed by: LONNIE ANN MD on Feb 19 2025 3:15PM EST us Araseli Wall RN COMPLEX CARE.CAR REFINISHER US-PAMA Final Resu lt * US DOPPLER COMPLETE (02/19/2025 1:47 PM EDT) Anatomical Region Laterality Modality Ultrasound 02/19/2025 1:47 PM EDT Impressions 02/19/2025 3:17 PM EDT IMPRESSION: Cirrhotic liver morphology. No lesion. Patent hepatic vasculature with appropriately directed flow. Small volume abdominal ascites around the liver and in right lower quadrant. Radiology Technician: PSCB Transcribe Date/Time: Feb 19 2025 1:53P Dictated by : LISBETH REBOLLAR MD This examination was interpreted and the report reviewed and electronically signed by: LONNIE ANN MD on Feb 19 2025 3:15PM EST Narrative 02/19/2025 3:17 PM EDT * * *Final Report* * * DATE OF EXAM: Feb 19 2025 1:47PM [facility] [id number] - US DOPPLER COMPLETE / PROCEDURE REASON: Other ascites * * * * Physician Interpretation * * * * EXAMINATION: LIVER VASCULAR ULTRASOUND WITH DOPPLER IMAGING CLINICAL HISTORY: [place] liver biopsy 02/02/2025: Hepatic parenchyma with zone 3 patchy sinusoidal dilatation, patchy dilated/angulated portal vein branches, and pericellular fibrosis. TECHNIQUE: Sonography of the liver with color and spectral Doppler imaging of the hepatic vasculature was performed. Images were obtained and stored in a permanent archive. MQ: USLV_1 COMPARISON: Ultrasound 11/23/2024. RESULT: Sonographic Findings: Pancreas: Normal sonographic appearance. Portions obscured: tail Liver: Echotexture: Mildly coarsened Echogenicity: Mildly heterogeneous Surface contour: Nodular Lesions: None. Biliary: No intrahepatic biliary duct dilation. CBD: 0.3 cm at the hilum. Gallbladder: Normal caliber -Contents: No cholelithiasis -Wall: Normal -Other: No pericholecystic fluid. Right Kidney: No hydronephrosis. Spleen: Craniocaudal length 11.2 cm, normal. There are no splenic lesions. Other: Small volume abdominal ascites around the liver and in right lower quadrant. HEPATIC VASCULATURE: PORTAL SYSTEM: -Splenic Vein: Patent with antegrade flow (towards the liver). -Main PV: Patent with normal, phasic antegrade flow (towards liver). 26.4 cm/sec -Right anterior PV: Patent with phasic antegrade flow (towards liver). -Right posterior PV: Patent with phasic antegrade flow (towards liver). -Left PV: Patent with phasic antegrade flow (towards liver). Splenorenal shunt: No Recannulized paraumbilical vein: No HEPATIC ARTERIES: - Main BLACKBURN: Normal waveform PSV: 45 cm/sec. RI: 0.81 - Right anterior BLACKBURN: Normal waveform - Right posterior BLACKBURN: Normal waveform - Left BLACKBURN: Normal waveform Hepatic Veins: -Left: Patent with triphasic waveform. -Middle: Patent with triphasic waveform. -Right: Patent with triphasic waveform. IVC: Patent with normal, phasic wave form. Procedure Note Provider, [facility] - 02/19/2025 * * *Final Report* * * DATE OF EXAM: Feb 19 2025 1:47PM [facility] 1033 - US DOPPLER COMPLETE / PROCEDURE REASON: Other ascites * * * * Physician Interpretation * * * * EXAMINATION: LIVER VASCULAR ULTRASOUND WITH DOPPLER IMAGING CLINICAL HISTORY: [place] liver biopsy 02/02/2025: Hepatic parenchyma with zone 3 patchy sinusoidal dilatation, patchy dilated/angulated portal vein branches, and pericellular fibrosis. TECHNIQUE: Sonography of the liver with color and spectral Doppler imaging of the hepatic vasculature was performed. Images were obtained and stored in a permanent archive. MQ: USLV_1 COMPARISON: Ultrasound 11/23/2024. RESULT: Sonographic Findings: Pancreas: Normal sonographic appearance. Portions obscured: tail Liver: Echotexture: Mildly coarsened Echogenicity: Mildly heterogeneous Surface contour: Nodular Lesions: None. Biliary: No intrahepatic biliary duct dilation. CBD: 0.3 cm at the hilum. Gallbladder: Normal caliber -Contents: No cholelithiasis -Wall: Normal -Other: No pericholecystic fluid. Right Kidney: No hydronephrosis. Spleen: Craniocaudal length 11.2 cm, normal. There are no splenic lesions. Other: Small volume abdominal ascites around the liver and in right lower quadrant. HEPATIC VASCULATURE: PORTAL SYSTEM: -Splenic Vein: Patent with antegrade flow (towards the liver). -Main PV: Patent with normal, phasic antegrade flow (towards liver). 26.4 cm/sec -Right anterior PV: Patent with phasic antegrade flow (towards liver). -Right posterior PV: Patent with phasic antegrade flow (towards liver). -Left PV: Patent with phasic antegrade flow (towards liver). Splenorenal shunt: No Recannulized paraumbilical vein: No HEPATIC ARTERIES: - Main BLACKBURN: Normal waveform PSV: 45 cm/sec. RI: 0.81 - Right anterior BLACKBURN: Normal waveform - Right posterior BLACKBURN: Normal waveform - Left BLACKBURN: Normal waveform Hepatic Veins: -Left: Patent with triphasic waveform. -Middle: Patent with triphasic waveform. -Right: Patent with triphasic waveform. IVC: Patent with normal, phasic wave form. IMPRESSION IMPRESSION: Cirrhotic liver morphology. No lesion. Patent hepatic vasculature with appropriately directed flow. Small volume abdominal ascites around the liver and in right lower quadrant. Radiology Technician: [facility] Transcribe Date/Time: Feb 19 2025 1:53P Dictated by : LISBETH REBOLLAR MD This examination was interpreted and the report reviewed and electronically signed by: LONNIE ANN MD on Feb 19 2025 3:15PM EST us Araseli Wall RN COMPLEX CARE.CAR REFINISHER US-PAMA Final Resu lt * IR TRANSJUGULAR LIVER BX W/PRESS (02/02/2025 10:19 AM EDT) Anatomical Region Laterality Modality Other 02/02/2025 10:1 9 AM EDT Impressions 02/02/2025 2:02 PM EDT IMPRESSION: 1. SUCCESSFUL TRANSJUGULAR LIVER BIOPSY DESCRIBED ABOVE. 2. NO EVIDENCE OF PORTAL HYPERTENSION. CORRECTED SINUSOIDAL GRADIENT IS CALCULATED TO BE MEAN OF 1 MM HG. Radiology Technician: [facility] Transcribe Date/Time: Feb 02 2025 1:58P Dictated by : ISAIAH PINTO MD This examination was interpreted and the report reviewed and electronically signed by: ISAIAH PINTO MD on Feb 02 2025 2:00PM EST Narrative 02/02/2025 2:02 PM EDT * * *Final Report* * * DATE OF EXAM: Feb 02 2025 10:19AM [facility] 0808 - IR TRANSJUG LIVER BX W/PRESS / PROCEDURE REASON: R74.8-Elevated alkaline phosphatase level * * * * Physician Interpretation * * * * PROCEDURE: TRANSJUGULAR LIVER BIOPSY AND PRESSURES HISTORY: 74 year old male with elevated liver enzymes. Request for transjugular liver biopsy for further evaluation. CONSENT: Risks, benefits, treatment options, potential complications and personnel to be involved were discussed (including the risks of radiation exposure, contrast and anesthesia administration, and any equipment needed for the procedure to ensure best possible outcome) with the patient and all questions were answered and consent was obtained prior to procedure. MEDICATION RECONCILIATION: The patient's medications and allergies were reviewed in the electronic medical record and reconciled to the proposed procedure/treatment. RADHA-PROCEDURE DISCUSSION: The appropriate elements of the pre-procedure discussion, safety check list and sign-out were performed. TIME OUT: A time out was performed immediately prior to procedure start with the nursing, and interventional team, correctly identifying the name, date of , procedure, anatomy (including marking of site and side if applicable), patient position, procedure consent form, relevant diagnostic and radiology test results, antibiotic administration if applicable, safety precautions, and procedure-specific equipment needs. Start of procedure (Time out): 0954 End of procedure (Sign out): 1019 Patient position: Supine Anesthesia: After establishing pulse oximetry, BP and EKG monitoring by the Radiology nurse, moderate sedation with Versed and Fentanyl was administered. Physician Intra-Service time in minutes (first dose of sedation to end of procedure): 53 Local anesthesia: 2 % lidocaine ANTIBIOTICS: None ADDITIONAL MED: None ADDITIONAL MED: None CONTRAST DOSE: 6 cc of OMNIPAQUE 240 was injected into the venous system during the procedure. IMAGE GUIDANCE: Fluoroscopic and sonographic guidance was used. Ultrasound demonstrated patency of the target vein without filling defects. Access was obtained under direct sonographic visualization. A sonographic image of the vessel was obtained and placed into the permanent archive for documentation. FLUOROSCOPIC RADIATION SUMMARY: Plane A, Air Kerma: 25.0 mGy mGy Dose Area Product (DAP): mGycm2 Fluoro Time: 3:18 min Radiation dose exceed 5 Gy: No If radiation dose exceeded 5 Gy, was counseling and instructional brochure provided:N/A ACCESS: right internal jugular vein ACCESS HEMOSTASIS: Manual Compression. TECHNIQUE: The patient was prepped and draped using all elements of maximal sterile barrier technique (cap, mask, sterile gown, sterile gloves, a large sterile sheet, hand hygiene and cutaneous antisepsis), sterile ultrasound gel and sterile ultrasound probe covers. ...After local anesthesia, access was obtained into the vein using a 21G micropuncture set which was exchanged over a wire for a long #9F sheath. Pressures were measured in the IVC and the right atrium. Using a #5F MPA catheter in conjunction with a 035 angled glide wire, access into the right hepatic vein was obtained. Hepatic venogram was performed. Catheter was exchanged for an edgardo balloon over an Amplatz guide wire. Free and wedge pressures were measured in the hepatic vein. The edgardo balloon was removed and a #7F biopsy sheath was placed coaxially through the #9F sheath over a guide wire. The biopsy sheath and stiffener were advanced into the hepatic vein. Using a #19G biopsy gun, 2 passes and 2 core biopsies were obtained and sent to pathology in formalin. The sample was correctly labeled with the patient information. The sheaths were removed and hemostasis was obtained at the neck by direct manual compression. RESULT: Right atrial pressure measured mean of 17 mm Hg. IVC pressure measured mean of 15 mm Hg. Free hepatic pressure measured mean of 19 mm Hg. Hepatic wedge pressure measured mean of 20 mm Hg. Corrected sinusoidal gradient is calculated to be mean of 1 mm Hg. Specimens: 2 passes were made obtaining 2 cores which were sent to surgical pathology. Right hepatic venogram demonstrated no evidence for filling defects, focal stenosis, or web formations. The patient tolerated the procedure well. There were no significant complications and no other complications during the procedure. CONCLUSION: The patient was comfortable and was transferred to the recovery room in stable condition. Estimated Blood Loss: Minimal ATTENDING RADIOLOGIST: Isaiah Pinto M.D. DOWEL SETTING MACHINE OPERATOR: None The procedure was performed by the: attending radiologist, without an fleet assistant. The attending radiologist performed the following procedural activities: Entire procedure us Araseli Wall APRN.CAR REFINISHER INTERVENTIONAL RADIOLOGY F inal Result * SURGICAL PATHOLOGY (02/02/2025 10:11 AM EDT) Case Report Surgical Pathology Report Case: [id number] Authorizing Provider: Isaiah Pinto MD Collected: 02/02/2025 10:11 AM Ordering Location: [facility] Received: 02/02/2025 03:49 PM Pathologist: Lucy Ngo MD Specimen: Liver, Biopsy 02/08/2025 2:52 PM EDT [facility] FINAL DIAGNOSIS A. Liver, [place], biopsy: - Hepatic parenchyma with zone 3 patchy sinusoidal dilatation, patchy dilated/angulated portal vein branches, and pericellular fibrosis. - See comment. 02/08/2025 2:52 PM EDT [facility] at 1452 EDT Diagnosis Comment The histologic examination shows 2 cores of liver parenchyma exhibiting adequate number of portal tracts for histologic evaluation. Portal tracts exhibit minimal mixed inflammation composed of predominantly lymphocytes admixed with rare plasma cells and eosinophils. [place] bile ducts are identified along with bile ductular proliferation. Portal vein branches appear angulated and dilated. Areas of hepatocyte dropout are identified along with rare plasma cells, ceroid laden macrophages and lymphocytes. Hepatocytes with glycogenated nuclei are identified. There is no evidence of interface activity, significant steatosis, ballooned hepatocytes, or Ivette Denk bodies. Trichrome stain highlights portal, periportal, and pericellular fibrosis. PASD stain shows no evidence of PAS-D positive intracytoplasmic globules. PASD stain highlights scattered ceroid laden macrophages. Iron stain shows no definite iron deposition within Kupffer cells or hepatocytes (score 0 of 4+). CK7 highlights [place] bile ducts as well as biliary metaplasia. Copper shows no evidence of copper deposition within hepatocytes. Reticulin stain highlights zone 3 hepatocyte atrophy. CMV stain is negative for Cytomegaloviral inclusions. The overall features are suggestive of underlying vascular flow (inflow/outflow) abnormality with pericellular fibrosis. The possible etiologies include cardiac abnormality, hepatic vascular abnormality, or underlying renal pathology etc. Correlation with clinical findings and imaging is strongly recommended. This case was reviewed in consultation with my colleague Dr. Orion Menard, who agrees with the diagnostic interpretation. 02/08/2025 2:52 PM EDT [facility] Gross Description A. Liver, Biopsy Received in formalin are two segments of cylindrical tissue aggregating to 1.5 x 0.2 x 0.1 cm, brown and of a soft and friable consistency. Totally submitted in one cassette. [facility] February 02, 2025 8:03 PM Gross examination performed at [facility], [facility] [place] [address] 02/08/2025 2:52 PM EDT [facility] Clinical History elevated ALP 02/08/2025 2:52 PM EDT [facility] Performing Lab Diagnostic interpretation performed at: [facility], [address] [place] [address] CLIA# [id number] Furniture Fabricator: Ramos Strickland MD 02/08/2025 2:52 PM EDT [facility] Disclaimer Laboratory Developed Test (LDT) Disclaimer: Performance characteristics of immunohistochemica l, immunofluorescent, and chromogenic in-situ hybridization tests have been determined by the performing laboratory within [facility]'s [facility] Pathology and Laboratory Medicine Department ([facility], [facility], [facility], [facility], [facility], [facility], or [facility]) in a manner consistent with CLIA requirements. One or more of these tests may not have been cleared or approved by the FDA. [facility] is regulated under CLIA as qualified to perform high-complexity testing. These tests are used for clinical purposes. These should not be regarded as investigational or for research. Positive and negative controls stain appropriately. 02/08/2025 2:52 PM EDT [facility] Tissue LIVER BIOPSY SPECIMEN / Unknown 02/02/2025 10:11 AM EDT 02/02/2025 3:49 PM EDT Comment:Pre-op diagnosis: Elevated alkaline phosphatase level [R74.8] Isaiah Pinto MD SURGICAL PATHOLOGY Final Result [facility] [place] [address], [facility] [address] [place] [address], * MAGNESIUM (01/25/2025 11:00 AM EDT) Magnesium 2.2 1.7 - 2.3 mg/dL 01/25/2025 12:17 PM EDT [facility] Blood BLOOD SPECIMEN / Unknown Venipuncture / Unknown 01/25/2025 11:00 AM EDT 01/25/2025 11:00 AM EDT us Jose Antonio Meyers MD LABORATORY Final Resul t [facility] [address] [place] [address] * (ABNORMAL) COMPLETE BLOOD COUNT (01/25/2025 11:00 AM EDT) Only the most recent of2 resultswithin the time period is included. WBC 8.05 3.70 - 11.00 k/uL 01/25/2025 11:05 AM EDT [facility] RBC 3.75(L) 4.20 - 6.00 m/uL 01/25/2025 11:05 AM EDT [facility] Hemoglobin 12.2(L) 13.0 - 17.0 g/dL 01/25/2025 11:05 AM EDT [facility] Hematocrit 37.9(L) 39.0 - 51.0 % 01/25/2025 11:05 AM EDT [facility] MCV 101.1(H) 80.0 - 100.0 fL 01/25/2025 11:05 AM EDT [facility] MCH 32.5 26.0 - 34.0 pg 01/25/2025 11:05 AM EDT [facility] MCHC 32.2 30.5 - 36.0 g/dL 01/25/2025 11:05 AM EDT [facility] RDW-CV 14.7 11.5 - 15.0 % 01/25/2025 11:05 AM EDT [facility] Platelet Count 197 150 - 400 k/uL 01/25/2025 11:05 AM EDT [facility] MPV 9.8 9.0 - 12.7 fL 01/25/2025 11:05 AM EDT [facility] Absolute nRBC <0.01 <0.01 k/uL 01/25/2025 11:05 AM EDT [facility] Blood BLOOD SPECIMEN / Unknown Venipuncture / Unknown 01/25/2025 11:00 AM EDT 01/25/2025 11:00 AM EDT us Jose Antonio Meyers MD LABORATORY Final Resul t [facility] [address] [place] [address] * XR CHEST 2V FRONTAL/LAT (01/08/2025 12:43 PM EDT) Anatomical Region Laterality Modality Chest Other 01/08/2025 12:4 3 PM EDT Impressions 01/09/2025 2:27 PM EDT IMPRESSION: Small right pleural effusion and mild right basilar atelectasis have increased from 11/23/2024. Transcribe Date/Time: Jan 09 2025 2:24P Dictated by: MARY CHIU MD This examination was interpreted and the report reviewed and electronically signed by: MARY CHIU MD on Jan 09 2025 2:25PM EST Thank you for allowing us to participate in the care of your patient. Should there be any questions regarding this interpretation, please call [phone]. If you are unable to reach us at the number above, please feel free to contact [facility]Radiology at [phone]. Narrative 01/09/2025 2:27 PM EDT * * *Final Report* * * DATE OF EXAM: Jan 08 2025 12:43PM [id number] - XR CHEST 2V FRONTAL/LAT / PROCEDURE REASON: Pleural effusion, not elsewhere classified * * * * Physician Interpretation * * * * RESULT: EXAMINATION: CHEST RADIOGRAPH (2 VIEW FRONTAL & LATERAL) CLINICAL HISTORY: Pleural effusion, not elsewhere classified MQ: XC2_6 EXAM DATE/TIME: 01/08/2025 12:43 PM COMPARISON: Chest x-ray dated 11/23/2024. Right upper quadrant ultrasound dated 11/23/2024 RESULT: Lines, tubes, and devices: None. Lungs and pleura: Small right pleural effusion and mild right basilar atelectasis, slightly increased from 11/23/2024. A trace amount of fluid within the right minor fissure is also increased. The lungs are otherwise clear. No evidence of a pneumothorax. Cardiomediastinal silhouette: Normal cardiomediastinal silhouette. Bones and soft tissues: Unremarkable. Procedure Note Provider, [facility] [place] - 01/11/2025 * * *Final Report* * * DATE OF EXAM: Jan 08 2025 12:43PM [id number] - XR CHEST 2V FRONTAL/LAT / PROCEDURE REASON: Pleural effusion, not elsewhere classified * * * * Physician Interpretation * * * * RESULT: EXAMINATION: CHEST RADIOGRAPH (2 VIEW FRONTAL & LATERAL) CLINICAL HISTORY: Pleural effusion, not elsewhere classified MQ: XC2_6 EXAM DATE/TIME: 01/08/2025 12:43 PM COMPARISON: Chest x-ray dated 11/23/2024. Right upper quadrant ultrasound dated 11/23/2024 RESULT: Lines, tubes, and devices: None. Lungs and pleura: Small right pleural effusion and mild right basilar atelectasis, slightly increased from 11/23/2024. A trace amount of fluid within the right minor fissure is also increased. The lungs are otherwise clear. No evidence of a pneumothorax. Cardiomediastinal silhouette: Normal cardiomediastinal silhouette. Bones and soft tissues: Unremarkable. IMPRESSION IMPRESSION: Small right pleural effusion and mild right basilar atelectasis have increased from 11/23/2024. Transcribe Date/Time: Jan 09 2025 2:24P Dictated by: MARY CHIU MD This examination was interpreted and the report reviewed and electronically signed by: MARY CHIU MD on Jan 09 2025 2:25PM EST Thank you for allowing us to participate in the care of your patient. Should there be any questions regarding this interpretation, please call [phone]. If you are unable to reach us at the number above, please feel free to contact [facility] eRadiology at [phone]. us Triston Riggs MD RAD-PAMA Final Result * GREY BY IFA WITH REFLEX (01/08/2025 12:33 PM EDT) GREY Negative Negative 01/11/2025 3:22 PM EDT [facility] Comment: Anti-nuclear antibody test is used as an aid in diagnosis of systemic autoimmune diseases. Where positive and clinically warranted, follow-up using disease- specific testing is recommended. Low positive titers are not uncommon with advanced age, certain chronic infections, and malignancies among others. Test methodology: Indirect fluorescence immunoassay (IFA) using HEp-2 cells. Blood BLOOD SPECIMEN / Unknown Venipuncture / Unknown 01/08/2025 12:33 PM EDT 01/08/2025 12:33 PM EDT Araseli Wall APRN.[facility] LABORAT[facility] Final Resu lt Performing Organization Address [facility] Co de Phone Number [facility] [address] [place] [address], [place] * SMOOTH MUSCLE AB SCR (01/08/2025 12:33 PM EDT) Actin Smooth Muscle IgG Qualitative Negative Negative 01/11/2025 12:39 PM EDT [facility] Actin Smooth Muscle IgG Quantitative 11 <20 Units 01/11/2025 12:39 PM EDT [facility] Blood BLOOD SPECIMEN / Unknown Venipuncture / Unknown 01/08/2025 12:33 PM EDT 01/08/2025 12:33 PM EDT Narrative [facility] - 01/11/2025 12:39 PM EDT Actin IgG test is used as an aid in diagnosis of autoimmune hepatitis. Clinical correlation is required. Araseli Wall RN COMPLEX CARE.[facility] Final Resu lt Performing Organization Address [facility] Co de Phone Number [facility] [address] [place] [address], [place] * PROTHROMBIN TIME (01/08/2025 12:33 PM EDT) PT Sec 12.2 9.7 - 13.0 sec 01/08/2025 10:43 PM EDT [facility] INR 1.1 0.9 - 1.3 01/08/2025 10:43 PM EDT [facility] Comment: Vitamin K Antagonist (VKA) Therapeutic Range: INR 2 to 3 (Target INR of 2.5) Note: For patients treated with VKA drugs, such as warfarin, the [employer] 2012 Guideline recommends a therapeutic INR range of 2 to 3 (target INR of 2.5). This recommendation includes high-risk patients with antiphospholipid syndrome with previous arterial or venous thromboembolism, current-generation mechanical or bioprosthetic aortic heart valve replacement. Note: Patients with mechanical aortic valve replacement and additional risk factors for thromboembolic events (atrial fibrillation, previous thromboembolism, LV dysfunction, hypercoagulable conditions) or an older generation mechanical AVR (i.e., ball in-Cage) or any mechanical MVR should have a INR therapeutic range of 2.5 to 3.5 (target INR of 3). Camilla COHEN, et al. Chest 2012, 141:7S-47S Simone RA, et al. [facility] 2017, 70: 252-289 Blood BLOOD SPECIMEN / Unknown Venipuncture / Unknown 01/08/2025 12:33 PM EDT 01/08/2025 12:33 PM EDT us Araseli Wall APRN.[facility] Final Resu lt [facility] [address] [place] [address], * MITOCHONDRIAL M2 IGG SERUM (01/08/2025 12:33 PM EDT) Mitochondrial M2 IgG Qualitative Negative Negative 01/11/2025 12:39 PM EDT [facility] Comment:Anti-mitochondrial a ntibody test is used as an aid in diagnosis of primary biliary cholangitis. Clinical correlation is required. Mitochondrial M2 IgG Quantitative 4.9 <=20.0 Units 01/11/2025 12:39 PM EDT [facility] Blood BLOOD SPECIMEN / Unknown Venipuncture / Unknown 01/08/2025 12:33 PM EDT 01/08/2025 12:33 PM EDT us Araseli Wall APRN.[facility]ORAT[facility] Final Resu lt [facility] [address] [facility] [address] [place] [address], [place] * LIVER-KIDNEY MICROSOME ANTIBODY, IGG (01/08/2025 12:33 PM EDT) Liver-Kidney Microsomal Abs <1:20 <1:20 01/11/2025 5:54 PM EDT [facility] Comment: INTERPRETIVE INFORMATION: Reuvo-Nuzubl-Fifwoedfe Abs, IgG Liver-Kidney Microsome IgG antibody (anti-LKM), as detected by indirect immunofluorescent antibody (IFA) techniques, may be observed in patients with autoimmune hepatitis type 2 (AIH-2), AIH-2 associated with autoimmune nwehqjpjyaydfcheix-vghqqxclmhc-gydvmvtfps dystrophy (APECED), viral hepatitis C or D, and some forms of drug-induced hepatitis. This IFA does not differentiate among the four types of LKM antibodies (LKM-1, LKM-2, LKM-3, and a fourth type that recognizes CY and CY antigens). Of these, anti-LKM-1 (cytochrome [id number]) IgG antibodies are considered specific for AIH-2. This test was developed and its performance characteristics determined by [facility]. It has not been cleared or approved by the [place] Food and Drug Administration. This test was performed in a CLIA certified laboratory and is intended for clinical purposes. Performed By: [facility] [address] [place] [address] Furniture Fabricator: Arley Correa MD, PhD CLIA Number: [id number] Blood BLOOD SPECIMEN / Unknown Venipuncture / Unknown 01/08/2025 12:33 PM EDT 01/08/2025 12:33 PM EDT Araseli Wall APRN.[facility] Final Resu lt [employer] [address] [place] [address] * IRON AND TIBC (01/08/2025 12:33 PM EDT) Iron 63 41 - 186 ug/dL 01/09/2025 3:51 AM EDT [facility] TIBC 379 232 - 386 ug/dL 01/09/2025 3:51 AM EDT [facility] Transferrin Saturation 16.6 15.0 - 57.0 % 01/09/2025 3:51 AM EDT [facility] Blood BLOOD SPECIMEN / Unknown Venipuncture / Unknown 01/08/2025 12:33 PM EDT 01/08/2025 12:33 PM EDT us Araseli Wall RN COMPLEX CARE.[facility] Final Resu lt Performing Organization Address City/[facility]/ZIP Co de Phone Number [facility] [address] [place] [address], [place] * HEPATITIS B SURFACE ANTIGEN (01/08/2025 12:33 PM EDT) HBsAg Negative Negative 01/09/2025 12:00 PM EDT [facility] Blood BLOOD SPECIMEN / Unknown Venipuncture / Unknown 01/08/2025 12:33 PM EDT 01/08/2025 12:33 PM EDT Araseli Wall APRN.[facility] Final Resu lt Performing Organization Address City/[facility]/ZIP Co de Phone Number [facility] [address] [place] [address], [place] * HEPATITIS B SURFACE ANTIBODY (01/08/2025 12:33 PM EDT) Hep B Surface Ab, Qual Negative 01/09/2025 11:59 AM EDT [facility] Comment:No serological evide nce of immunity to Hepatitis B Virus. Hep B Surface Ab Quant <8.00 mIU/mL 01/09/2025 11:59 AM EDT [facility] Comment: <8 mIU/mL: No serological evidence of immunity to Hepatitis B Virus. >/= 8 to <12 mIU/mL: No serological evidence of immunity to Hepatitis B Virus. >/= 12 mIU/mL: Consistent with serological evidence of immunity to Hepatitis B Virus. Blood BLOOD SPECIMEN / Unknown Venipuncture / Unknown 01/08/2025 12:33 PM EDT 01/08/2025 12:33 PM EDT us Araseli Wall APRN.[facility] Final Resu lt Performing Organization Address City/[facility]/ZIP Co de Phone Number [facility] [address] [place] [id number], [place] * HEPATITIS B CORE ANTIBODY TOTAL (01/08/2025 12:33 PM EDT) Hepatitis B Core Ab, Total Negative Negative 01/09/2025 12:00 PM EDT [facility] Comment:No evidence of curre nt or past infection with Hepatitis B virus. Should recent infection be suspected, repeat testing may be considered 3-4 weeks after this draw. Blood BLOOD SPECIMEN / Unknown Venipuncture / Unknown 01/08/2025 12:33 PM EDT 01/08/2025 12:33 PM EDT us Araseli Wall APRN.[facility] Final Resu lt Performing Organization Address [facility]/ZIP Co de Phone Number [facility] [address] [place] [phone], [place] * (ABNORMAL) GGT (01/08/2025 12:33 PM EDT) GGT 123(H) 10 - 70 U/L 01/09/2025 3:51 AM EDT [facility] Blood BLOOD SPECIMEN / Unknown Venipuncture / Unknown 01/08/2025 12:33 PM EDT 01/08/2025 12:33 PM EDT us Araseli Wall APRN.[facility] Final Resu lt Performing Organization Address City/[facility]/ZIP Co de Phone Number [facility] [address] [place] [id number], [place] * FERRITIN (01/08/2025 12:33 PM EDT) Pathologist [facility] Ferritin 71.9 30.3 - 565.7 ng/mL 01/09/2025 3:56 AM EDT [facility] Blood BLOOD SPECIMEN / Unknown Venipuncture / Unknown 01/08/2025 12:33 PM EDT 01/08/2025 12:33 PM EDT Araseli Wall APRN.[facility] Final Resu lt Performing Organization Address [facility] Co de Phone Number [facility] [address] [place] [address], [place] * (ABNORMAL) CMV IGM AB (01/08/2025 12:33 PM EDT) [facility] CMV IgM, Qual Positive( A) Negative 01/12/2025 1:55 PM EDT [facility] Comment:The result suggests recent infection with Cytomegalovirus (CMV) or recent CMV reactivation. CMV IgM levels may remain elevated for extended periods after a primary infection. Clinical correlation is required. Blood BLOOD SPECIMEN / Unknown Venipuncture / Unknown 01/08/2025 12:33 PM EDT 01/08/2025 12:33 PM EDT Araseli Wall APRN.[facility] Final Resu lt Performing Organization Address [facility]/ZIP Co de Phone Number [facility] [address] [place] [id number], [place] * [id number] (01/08/2025 12:33 PM EDT) Pathologist [facility] Alpha 1 Antitrypsin 167 90 - 200 mg/dL 01/09/2025 3:51 AM EDT [facility] Blood BLOOD SPECIMEN / Unknown Venipuncture / Unknown 01/08/2025 12:33 PM EDT 01/08/2025 12:33 PM EDT us Araseli Wall APRN.[facility] Final Resu lt Performing Organization Address City/[facility]/ZIP Co de Phone Number [facility] [address] [facility] [address] [address], [place] * HEPATITIS C ANTIBODY IA WITH CONFIRMATION (01/08/2025 12:33 PM EDT) Hep C Antibody IA Negative Negative 01/09/2025 11:03 AM EDT [facility] Comment:The result suggests no evidence of infection with Hepatitis C virus. Should recent infection be suspected, repeat testing may be considered 4-6 weeks after this draw. Blood BLOOD SPECIMEN / Unknown Venipuncture / Unknown 01/08/2025 12:33 PM EDT 01/08/2025 12:33 PM EDT us Araseli Wall APRN.[facility] Final Resu lt Performing Organization Address [facility] Co de Phone Number [facility] [address] [address], [place] * CHOLESTEROL BFL (05/18/2024 12:52 PM EST) Cholesterol, Body Fluid 30 See Comment mg/dL 05/19/2024 3:06 AM EST [facility] Comment: SYNOVIAL FLUIDS: Synovial [...] document C49-A. RAJEEV Bui: Clinical Laboratory Standards [place]; 2007. Body Fluid Type (Chol) Pleural Cavity, Right 05/19/2024 3:06 AM EST [facility] Sterile Fluid/Body Fluid PLEURAL FLUID / Unknown Non Blood / Unknown 05/18/2024 12:52 PM EST 05/18/2024 11:34 PM EST us Louise Douglas MD LABORATORY Final Result Performing Organization Address City/State/[facility] Co de Phone Number [facility] [address] [place] [address], [place] * COLONOSCOPY (THERAPEUTIC) (04/28/2024 11:16 AM EST) Anatomical Region Laterality Modality Other 04/28/2024 11:1 6 AM EST Narrative 04/28/2024 11:59 AM EST [facility] Gastrointestinal Endoscopy Patient Name: Bryan Harris Procedure Date: 04/28/2024 11:16 AM Date of : 1950 Admit Type: Outpatient Age: 74 Room: [place] [address] Gender: Male Note Status: Finalized Attending MD: Vic Ponce MD, [id number] Procedure: Colonoscopy Indications: Chronic diarrhea Comorbidities Patient [...] physician, the nurse, the anesthesiologist and the unit trust manager in the procedure room at 11:29 AM. [...] prior dose. Procedure Code(s): --- Professional --- 79670, Colonoscopy, flexible; with biopsy, single or multiple Diagnosis Code(s): --- Professional --- K52.9, Noninfective gastroenteritis and colitis, unspecified CPT copyright 2020 [employer]. All rights reserved. 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
--- OUTSIDE RECORDS SUMMARY | 2025-04-02 10:11 | XMS_ITS | Encounter Summary ---
Author Organization [facility] Address [address] [place] [address] Care Team Providers Care City Engineer Name Role Phone Jere Sales MD Unavailable [phone] Calin Gotti DO Unavailable [phone] Jose Antonio Meyers MD Primary Care Provider [phone] Source Comments In the event this information is protected by the Federal Confidentiality of Alcohol and Drug AbusePatient Records regulations: The Federal rules restrict any use of the information to criminally investigate or prosecute any alcohol or drug abuse patient.[facility] Encounter Details Date Type Department Care Team (Late st Contact Info) Description 11/13/2024 Get Medical Advice Gastroenterology [address] [address] Provider, Migel Harris. 1950 Social History Tobacco [...] risk 5 12/11/2023 Data from: https://www.neighborhoodatlas.medicine.[facility].edu/. Last address used for calculation 2230 [...] 1:30 PM EDT Appointment Gastroenterology [address] [address] Patrice Frost MD [address] [place] [address] Esophageal dysphagia [R13.19] 05/12/2025 8:25 AM EST Office Visit Gastroenterology [address] [address] Luis Valentine MD [address] [place] [address] Araseli Wall Reffered 05/12/2025 11:45 AM EST [place] [address] [place] [address] [place] [address] [facility] [place] [address] Follow-up 05/21/2025 2:00 PM EST Office Visit Cardiology [address] [facility] [place] [address] [place] [address] [place] [address] 6 month follow up documented as of this encounter Goals Goal Patient Goal Type Associated Problems Recent Progress Patient-Stated? Author Blood Pressure < 130/80 Blood Pressure 128/82(2024 12:30 PM EDT) Sung Farrell MD documented as of this encounter Visit Diagnoses Not on filedocumented in this encounter Care Teams City Engineer Relationship Specialty Start [place] [address] [facility] [place] [address] PCP - General Family Medicine 12/29/23 Jere Sales MD [address] [place] [address] Referring Gastroenterology 12/05/20 Calin Gotti DO [facility] [place] [address] Internal Medicine 10/16/23 documented as of this encounter
--- OUTSIDE RECORDS SUMMARY | 2025-04-02 10:11 | XMS_ITS | Encounter Summary ---
Author Organization [facility] Address [address] [place] [address] Care Team Providers Care Chemical Dependency Therapist Name Role Phone Jere Sales MD Unavailable [phone] Calin Gotti DO Unavailable [phone] Jose Antonio Meyers MD Primary Care Provider [phone] Source Comments In the event this information is protected by the Federal Confidentiality of Alcohol and Drug AbusePatient Records regulations: The Federal rules restrict any use of the information to criminally investigate or prosecute any alcohol or drug abuse patient.[facility] Encounter Details Date Type Department Care Team (Late st Contact Info) Description 10/19/2024 Get Medical Advice Pulmonary Medicine [address] [place], [place] [phone] Katerina Pascual PA-C [address] [place] [address] Willie Harris 1950 Social History Tobacco Use Types Packs/Day Years Used Date Smoking Tobacco: Never Smokeless Tobacco: Never Alcohol Use Standard Drinks/Week Comments Yes 0 (1 standard drink = 0.6 oz pure alcohol) socially, no drink since 06/2023 [facility] Utilities Answer Date Recorded In the past [...] is lower risk 5 12/11/2023 Data from: https://www.neighborhoodatlas.medicine.[facility].edu/. Last address used for calculation [address] [...] 1:30 PM EDT Appointment Gastroenterology [address] [address] Patrice Frost MD [address] [place] [address] Esophageal dysphagia [R13.19] 05/12/2025 8:25 AM EST Office Visit Gastroenterology [address] [address] Luis Valentine MD [address] [place] [address] Araseli Wall Reffered 05/12/2025 11:45 AM EST Office [place] [address] [place] [address] [place] [address] [place] [address] Follow-up 05/21/2025 2:00 PM EST Office Visit Cardiology [address] [facility] [place] [address] [place] [address] [facility] [place] [address] 6 month follow up documented as of this encounter Goals Goal Patient Goal Type Associated Problems Recent Progress Patient-Stated? Author Blood Pressure < 130/80 Blood Pressure 128/82(2024 12:30 PM EDT) Sung Farrell MD documented as of this encounter Visit Diagnoses Not on filedocumented in this encounter Care Teams Chemical Dependency Therapist Relationship Specialty Start [place] [address] [place] [address] PCP - General Family Medicine 12/29/23 Jere Sales MD [address] [address] Referring Gastroenterology 12/05/20 Calin Gotti DO [address] [place] [address] Internal Medicine 10/16/23 documented as of this encounter
--- OUTSIDE RECORDS SUMMARY | 2025-04-02 10:11 | XMS_ITS | Encounter Summary ---
Author Organization [facility] Address [address] [place] [address] Care Team Providers Care Electrical Maintenance Man Name Role Phone Jere Sales MD Unavailable [phone] Calin Gotti DO Unavailable [phone] Jose Antonio Meyers MD Primary Care Provider [phone] Source Comments In the event this information is protected by the Federal Confidentiality of Alcohol and Drug AbusePatient Records regulations: The Federal rules restrict any use of the information to criminally investigate or prosecute any alcohol or drug abuse patient.[facility] Encounter Details Date Type Department Care Team (Late st Contact Info) Description 11/17/2024 Patient Msg [facility] [address] [place], [place] [id number] Provider, [facility] Follow Up Appointment Social History Tobacco Use Types Packs/Day Years Used Date Smoking Tobacco: Never Smokeless Tobacco: Never Alcohol Use Standard Drinks/Week Comments Yes 0 (1 standard drink = 0.6 oz pure alcohol) socially, no drink since 06/2023 [facility] Utilities Answer Date Recorded In the [...] 04/05/2025 1:30 PM EDT Appointment Gastroenterology [address] [address] Patrice Frost MD [address] [place] [address] Esophageal dysphagia [R13.19] 05/12/2025 8:25 AM EST Office Visit Gastroenterology [address] [address] Luis Valentine MD [address] [place] [address] Araseli Wall Reffered 05/12/2025 11:45 AM EST [place] [address] [facility] [place] [address] [place] [address] [facility] [place] [address] Follow-up 05/21/2025 2:00 PM EST Office Visit Cardiology [address] [facility] [place] [address] [place] [address] [place] [address] 6 month follow up documented as of this encounter Goals Goal Patient Goal Type Associated Problems Recent Progress Patient-Stated? Author Blood Pressure < 130/80 Blood Pressure 128/82(2024 12:30 PM EDT) Sung Farrell MD documented as of this encounter Visit Diagnoses Not on filedocumented in this encounter Care Teams Electrical Maintenance Man Relationship Specialty [place] [address] [facility] [place] [address] PCP - General Family Medicine 12/29/23 Jere Sales MD [address] [place] [id number] Referring Gastroenterology 12/05/20 Calin Gotti DO [address] [place] [address] Internal Medicine 10/16/23 documented as of this encounter
--- OUTSIDE RECORDS SUMMARY | 2025-04-02 10:11 | XMS_ITS | Encounter Summary ---
Author Organization [facility] Address [address] [place] [address] Care Team Providers Care Transportation Inspector Name Role Phone Dawit Lorenz Primary Care Provider [phone] Encounter Details Date Type Department Care Team (Latest Contact Info) Description 03/25/2025 Travel Social History Tobacco Use Types Packs/Day [...] EDT Procedure Visit [facility] [address] [place] [phone] Uzair Lubin DPReinaldo [address] [place] [address] 08/16/2025 1:30 PM EST Office Visit [facility] [address] [place] [phone] Arley Hamilton, [address] [place] [address] 08/31/2025 1:05 PM EDT Office Visit [facility] [address] [place] [address] Bianca Bynum MD [address] [facility] [address] [place] [address] documented as of this encounter Visit Diagnoses Not on filedocumented in this encounter Care Teams Transportation Inspector Relationship Specialty Start Date End Date Dawit Lorenz DO [address] [facility] [place] [address] PCP - General Internal Medicine 03/12/25 documented as of this encounter
--- OUTSIDE RECORDS SUMMARY | 2025-04-02 10:11 | XMS_ITS | Encounter Summary ---
Author Organization [facility] Address [address] [place] [address] Care Team Providers Care Senior Engineering Specialist Name Role Phone Dawit Lorenz Primary Care Provider [phone] Encounter Details Date Type Department Care Team (Latest Contact Info) Description 03/24/2025 Travel Social History Tobacco Use Types Packs/Day [...] EDT Procedure Visit [facility] [address] [place] [phone] Uzair Lubin DPReinaldo [address] [place] [address] 08/16/2025 1:30 PM EST Office Visit [facility] [address] [place] [phone] Arley Hamilton, [address] [place] [address] 08/31/2025 1:05 PM EDT Office Visit [facility] [address] [place] [address] Bianca Bynum MD [address] [facility] [address] [place] [address] documented as of this encounter Visit Diagnoses Not on filedocumented in this encounter Care Teams Senior Engineering Specialist Relationship Specialty Start Date End Date Dawit Lorenz DO [address] [facility] [place] [address] PCP - General Internal Medicine 03/12/25 documented as of this encounter
--- OUTSIDE RECORDS SUMMARY | 2025-04-02 10:15 | XMS_ITS | CCD ---
Author Organization [facility] Inform ion Partnership [facility] Care Team Providers Care Steel Pan Form Placing Supervisor Name Role Phone Loida, Yuli E Unavailable Ball, Yuli E Unavailable Karthik Calloway Unavailable Unavailable Primary Care Provider Unavailabl e Loida, Yuli E Primary Care Provider [phone] Loida, Yuli E Unavailable Karthik Calloway Unavailable Ball, Yuli E Primary Care Provider [phone] Ball, Yuli E Unavailable Karthik Calloway Unavailable Unavailabl e Ball DO, Yuli E Primary Care Provider Ball DO, Yuli E Unavailable [phone] Karthik Calloway MD Unavailable Unavail able REQUEST, NONE LISTED Consulting Unavaila ble REQUEST, DR RUBIO LISTED Admitting Unavaila ble BALL, DR ROLDAN Primary Care Unavailable REQUEST, NONE LISTED Attending Unavaila ble BALL, DR ROLDAN Attending Unavailable LOIDA, DR ROLDAN Consulting Unavailable BALL, DR ROLDAN Admitting Unavailable Ball DO, Yuli E Primary Care Provider Ball DO, Yuli E Unavailable Karthik Calloway MD Unavailable Unavail able Yuli Mariscal Unavailable MARGIE EDOUARD Referring Unavailab le MARGIE EDOUARD Admitting Unavailab le LOIDA, YULI E Primary Care Unavailable LOIDA, YULI E Primary Care Unavailable GRECIA FAITH Attending Unavailable LOIDA, YULI E Primary Care Unavailable MARGIE EDOUARD Attending Unavailab le BALL, YULI E Primary Care Unavailable NENA HUFF Attending Unavailable LOIDA, YULI E Primary Care Unavailable NENA HUFF Admitting Unavailable NENA HUFF Referring Unavailable LOIDA, YULI E Primary Care [...] Calin P Attending Unavailable Jere Sales Unavailable Loida DO Yuli E Primary Care Provider Sam DO, Calin P Unavailable ARIADNA OSHEALIE Referring Unavailable BALL, YULI E Primary Care Unavailable JAS OSHEAE Attending Unavailable ZAVARELLA RUMA Referring Unavailable BALL, YULI E Primary Care Unavailable TITA LANDRY Attending Unavailable TITA LANDRY Referring Unavailable BALL, YULI E Primary Care Unavailable TITA LANDRY Attending Unavailable KATIE LANDRYE Referring Unavailable BALL, YULI E Primary Care Unavailable TITA LANDRY Attending Unavailable CELESTINO LANDRYANNE Referring Unavailable BALL, YULI E Primary Care Unavailable TITA LANDRY Attending Unavailable BALL, YULI E Primary Care Unavailable REMIGIO, SUDISH Referring Unavailable BALL, YULI E Primary Care Unavailable REMIGIO, SUDISH Referring Unavailable ARSENIOPIETER SpencerK Attending Unavailable ARSENIOSTEPHANEDALAK Referring Unavailable BALL, YULI E Primary Care Unavailable KATERINA BRAVO Referring Unavailable BALL, YULI E Primary Care Unavailable YEHUDA DIAL Consulting Unavailable ISAKOV, JOSE ANTONIO Admitting Unavailable ISAKOV, JOSE ANTONIO Attending Unavailable BALL, YULI E Primary Care Unavailable BALL, YUIL E Primary Care Unavailable KATERINA BRAVO Referring Unavailable ARSENIO, UDDALAK Referring Unavailable ZAVARELLA, [...] Unavailable BALL, YULI E Primary Care Unavailable Jere Sales MD Unavailable Unavailable Primary Care Provider UnavailJose Antonio Erickson MD Primary Care Provider PROVIDER, UNKNOWN Referring Unavailable PROVIDER, UNKNOWN Primary Care Unavailable Ball DO, Yuli E Primary Care Provider ANNE-MARIE BAJWA Attending Unavailable RAJI BYNUM Attending Unavailable RUSHERJAMEL Attending Unavailable RUSHERJAMEL Referring Unavailable RUSHERJAMEL Attending Unavailable RUSHERJAMEL Attending Unavailable NASEER, SUE Referring Unavailable BALL, YULI E Primary Care Unavailable TRISTON RIGGS Attending Unavailable TRISTON RIGGS Referring Unavailable ISAKOV, JOSE ANTONIO Primary Care Unavailable ARSENIO, UDDALAK Referring Unavailable ISAKOV, JOSE ANTONIO Primary Care Unavailable KATERINA CONTRERAS Attending Unavailable BALL, YULI E Primary Care Unavailable SANDIE, MARLYN Referring Unavailable ISAKOV, JOSE ANTONIO Primary Care Unavailable ZABRINA SUAREZ Attending Unavailable SANDIE, MARLYN Referring Unavailable ISAKOV, JOSE ANTONIO Primary Care Unavailable ISAKOV, JOSE ANTONIO Primary Care Unavailable NASEER, SUE Attending Unavailable ISAKOV, JOSE ANTONIO Primary Care Unavailable TRISTON RIGGS Attending Unavailable ISAKOV, JOSE ANTONIO Primary Care Unavailable NASEER, SUE Attending Unavailable BALL, YULI E Primary Care Unavailable ISAKOV, JOSE ANTONIO Referring Unavailable BALL, YULI E Primary Care Unavailable BALL, YULI E Primary Care Unavailable ISAKOV, JOSE ANTONIO Referring Unavailable BALL, YULI E Primary Care Unavailable ZAC MENDIOLA Attending Unavailable ISAKOV, JOSE ANTONIO Primary Care Unavailable RIGGS, TRISTON Admitting Unavailable RIGGSTRISTON Attending Unavailable BALL, YULI E Primary Care Unavailable JAMES ENAMORADO Admitting Unavailable JAMES ENAMORADO Attending Unavailable BALL, YULI E Primary Care Unavailable ROSEANN ROSARIO Admitting Unavailable AYLINROSEANN Attending Unavailable BALL, YULI E Primary Care Unavailable NASEER, SUE Attending Unavailable BALL, YULI E Primary Care Unavailable BALL, YULI E Primary Care Unavailable STEFFEN MCCARTY Attending Unavailabl e BALL, YULI E Primary Care Unavailable ISAKOV, JOSE ANTONIO Referring Unavailable ISAKOV, JOSE ANTONIO Primary Care Unavailable ISAKOV, JOSE ANTONIO Referring Unavailable ISAKOV, JOSE ANTONIO Primary Care Unavailable RIGGS, TRISTON Referring Unavailable BALL, YULI E Primary Care Unavailable ARSENIO, UDDALAK Referring Unavailable BALL, YULI E Primary Care Unavailable KATERINA CONTRERAS Attending Unavailable BALL, YULI E Primary Care Unavailable GURAJALA, ISAIAH FRED Admitting Unavailabl e GURAJALA, ISAIAH FRED Attending Unavailabl e ISAKOV, JOSE ANTONIO Primary Care Unavailable ISAKOV, JOSE ANTONIO Referring Unavailable BALL, YULI E Primary Care Unavailable AMNA CHINCHILLA Attending Unavailable NASEER, SUE Referring Unavailable BALL, YULI E Primary Care Unavailable ZAC MENDIOLA Referring Unavailable ISAKOV, JOSE ANTONIO Primary Care Unavailable TRISTON RIGGS Admitting Unavailable RIGGS, COLIN Attending Unavailable BALL, YULI E Primary Care Unavailable BALL, YULI E Primary Care Unavailable [facility] Attending Unavailable TRISTON RIGGS Admitting Unavailable TRISTON RIGGS Attending Unavailable ISAKOV, JOSE ANTONIO Primary Care Unavailable MERLYN ZAVALA Admitting Unavailable MERLYN ZAVALA Attending Unavailable BALL, YULI E Primary Care Unavailable ZABRINA SUAREZ Attending Unavailable MALACHIXIOMARA Referring Unavailable BALL, YULI E Primary Care Unavailable XIOMARA LY Referring Unavailable BALL, YULI E Primary Care Unavailable BALL, YULI E Primary Care Unavailable BOBBY BOJORQUEZ Attending Unavailable NASEER, SUE Referring Unavailable BALL, YULI E Primary Care Unavailable ARSENIO, UDDALAK Attending Unavailable BALL, YULI E Primary Care Unavailable ARSENIO, UDDALAK Referring Unavailable BALL, YULI E Primary Care Unavailable ARSENIO, UDDALAK Referring Unavailable BALL, YULI E Primary Care Unavailable Aure Giraldo Attending Unavailable NASEER, SUE Referring Unavailable ISAKOV, JOSE ANTONIO Primary Care Unavailable NASEER, SUE Referring Unavailable ISAKOV, JOSE ANTONIO Primary Care Unavailable NARENDRA GUEVARA Attending Unavailable BALL, YULI E Primary Care Unavailable TRISTON RIGGS Referring Unavailable BALL, YULI E Primary Care Unavailable TITA LANDRY Referring Unavailable BALL, YULI E Primary Care Unavailable NASEER, SUE Attending Unavailable STEFFEN MCCARTY Referring Unavailabl e BALL, YULI E Primary Care Unavailable NASEER, SUE Referring Unavailable BALL, YULI E Primary Care Unavailable KATERINA CONTRERAS Referring Unavailable ISAKOV, JOSE ANTONIO Primary Care Unavailable BALL, YULI E Primary Care Unavailable TRISTON RIGGS Referring Unavailable BALL, YULI E Primary Care Unavailable DELLA BARRAGAN Attending Unavailable BALL, YULI E Primary Care Unavailable TRISTON RIGGS Referring Unavailable ISAKOV, JOSE ANTONIO Primary Care Unavailable TRISTON RIGGS Attending Unavailable ZAC MENDIOLA Referring Unavailable ISAKOV, JOSE ANTONIO Primary Care Unavailable MENDIOLAZAC Referring Unavailable ISAKOV, JOSE ANTONIO Primary Care Unavailable KARI MENDIOLAET Referring Unavailable ISAKOV, JOSE ANTONIO Primary Care Unavailable XIOMARA LY Attending Unavailable BALL, YULI E Primary Care Unavailable XIOMARA LY Referring Unavailable BALL, YULI E Primary Care Unavailable ISAKOV, JOSE ANTONIO Primary Care Unavailable MARLYN HOOPER Attending Unavailable XIOMARA LY Referring Unavailable ISAKOV, JOSE ANTONIO Primary Care Unavailable RGIGS, TRISTON Referring Unavailable ISAKOV, JOSE ANTONIO Primary Care Unavailable RIGGS, TRISTON Referring Unavailable ISAKOV, JOSE ANTONIO Primary Care Unavailable ISAKOV, JOSE ANTONIO Referring Unavailable ISAKOV, JOSE ANTONIO Primary Care Unavailable SUE MURILLO Referring Unavailable LOIDA, YULI E Primary Care Unavailable LOIDA, YULI E Primary Care Unavailable ZABRINA SUAREZ Referring Unavailable LOIDA UYLI E Primary Care Unavailable XIOMARA LY Referring Unavailable LOIDA YULI E Primary Care Unavailable MALACHIXIOMARA VELASQUEZ Referring Unavailable ISAKOV, JOSE ANTONIO Primary Care Unavailable ISAKOV, JOSE ANTONIO Referring Unavailable LOIDA, YULI E Primary Care Unavailable XIOMARA LY Referring Unavailable Allergies Allergy Classification Reported Allergen(s) Allergy Type Date of Onset Reaction(s) Facility Opioid Agonists (1 source) tra[facility]ADol Drug Allergy 12-16-19 21 Mental Status Change [facility] (20 sources) acetaminophen / oxyCODONE; Translations: [OXYCODONE-ACETAM INOPHEN] Propensity to adverse reactions to drug 03-13-20 16 Other (See Comments), [place] [facility] (20 sources) traMADol; Translations: [TRAMADOL] Propensity to adverse reactions to drug 08-25-19 15 Shortness Of Breath, Mental Status Change, Unknown [facility] Work Phone: (1 source) tra[facility] Drug Allergy 07-26-19 16 [facility] (1 source) traMADol Drug Allergy 08-13-19 24 [facility] (7 sources) Adhesive Tape-Silicones; Translations: [ADHESIVE TAPE-SILICONES] Drug Intolerance 02-03-20 25 Intolerance [facility] Medications Current Medications Medication Drug Class(es) Dates Sig (Normalized) Sig (Original) AeroChamber Mini Chamber - (1 source) Start: 07-23-2023 AeroChamber Mini Chamber - Use w/ MDI inhaled every 6 hours as needed for 30 days Jul, Active [id number] actuat albuterol 0.09 mg/actuat metered dose inhaler (1 source) beta2-Adrenergic Agonist Start: 07-23-2023 Albuterol Sulfate HFA 108 (90 Base) MCG/ACT 2 puffs Inhalation every 6 hours as needed for cough. Minimum bid for 30 days Jul, Active amoxicillin 875 mg / clavulanate 125 mg oral tablet (12 sources) Penicillin-class Antibacterial Start: 11-19-2024 End: 11-25-2024 take 1 tablet by mouth every twelve hours in the evening amoxicillin-clavu lanate potassium (AUGMENTIN) 875-125 mg per tablet Take 1 tablet by mouth every 12 hours for 6 days. 12 tablet 11/19/2024 5:59 PM EDT 11/19/2024 11/25/2024 Active Start: 08-19-2023 take 1 tablet by av th every twelve hours Amoxicillin-Pot Clavulanate 875-125 mg tablet Active 1 TAB PO Every 12 hours 14 August 19, 2023 1:00am ASCORBATE CALCIUM (VITAMIN C ORAL) (17 sources) take 1 tablet by av th once daily in the morning ASCORBATE CALCIUM (VITAMIN C ORAL) Take 1 tablet by mouth every morning . 0 Active take 1 tablet by av th once daily in the morning ASCORBATE CALCIUM (VITAMIN C ORAL) Take 1 tablet by mouth every morning . Active ascorbic acid 500 mg chewable tablet (20 sources) Vitamin C take 1 tablet by av th once daily Ascorbic Acid (vitamin C) 500 MG tablet Take 500 mg by mouth Daily Active take 2 tablets by mouth once tonny ly ascorbic acid, vitamin C, (VITAMIN C) 500 mg tablet Take 1,000 mg by mouth once daily. Active aspirin 81 mg delayed release oral tablet (20 sources) Platelet Aggregation Inhibitor, Nonsteroidal Anti-inflammatory Drug End: 03-12-2025 take 1 tablet by mouth at bedtime aspirin 81 MG EC tablet Take 81 mg by mouth at bedtime. 03/12/2025 Discontinued (Discontinued by another clinician) atorvastatin 10 mg oral tablet (20 sources) HMG-CoA Reductase Inhibitor Start: 08-05-2023 End: 08-02-2024 Atorvastatin 10 mg tablet Active 0 .ROUTE .COMPLEX 90 August 02, 2024 4:42pm TAKE 1 TABLET DAILY IN THE EVENING Start: 10-21-2020 End: 01-26-2025 take 1 tablet by mouth once daily atorvastatin (LIPITOR) 10 mg tablet Take 1 tablet by mouth once daily. 10/31/2020 01/26/2025 Discontinued azithromycin 250 mg oral tablet (20 sources) Macrolide Antimicrobial Start: 03-11-2024 End: 08-16-2024 Azithromycin 250 mg tablet Active 250 MG PO As Directed 6 5 August 16, 2024 2:30pm Start: 11-15-2022 Azithromycin 2 50 MG as directed Orally daily for 5 days May, Not-Taking/PRN benzonatate 100 mg oral capsule (9 sources) Non-narcotic Antitussive Start: 08-13-2023 take 1 capsule by mouth three times daily Benzonatate 100 mg capsule Active 100 MG PO Three times daily August 13, 2023 1:00am Start: 07-07-2023 take 1 capsule by mo [facility] every eight hours Benzonatate 100 [...] Calcium (20 sources) Phosphate Binder, Calcium calcium zwr-tbx-I6-Zn-helicopter specialist-kian 250 mg-40 mg- 125 unit-3.75mg tab Take by mouth. Active CALCIUM MAGNESIUM ZINC PO (8 sources) CALCIUM MAGNESIU M ZINC PO Take by mouth Active calcium polycarbophil 625 mg oral tablet [...] mg/ml / guaiFENesin 20 mg/ml oral solution (7 sources) Opioid Agonist Start: 2023 take 1 mL by mouth every six hours as needed for cough Codeine-Guaifenesin 10-100 mg/5 mL liquid Active 10 ML PO Every 6 hours as needed for cough August 13, 2023 1:00am Start: 07-10-2023 take [...] days. 5 mL 1 08/12/2024 08/26/2024 Active Dextromethorphan / guaiFENesin (8 sources) Uncompetitive X-zrkass-I-aspartat e Receptor Antagonist, Sigma-1 Agonist Dextromethorphan-gua iFENesin (MUCINEX DM PO) Take by mouth Active diclofenac sodium 0.01 mg/mg topical gel [...] 2 07/09/2024 07/10/2024 Discontinued (Error) Start: 01-22-2024 End: 02-26-2025 diclofenac (VOLTAREN) 1 % to pical gel 01/22/2024 02/26/2025 Discontinued Start: 05-13-2023 End: 07-08-2024 diclofenac sodium (Voltaren) [...] pain. . 300 g 2 08/31/2022 Active enteric contrast (will be provided with radiology test) (3 sources) Start: 10-21-2024 End: 10-22-2024 enteric contrast (will be provided with radiology test) Indications: Other ascites , Generalized abdominal pain For CT ENTEROGRAPHY W IVCON order Administer, As Directed One Time Only, via Oral, Rectal, both Oral and Rectal, Enteric Tube, Stoma or Indwelling Catheter, Enteric Contrast as designated per enteric contrast guidelines. 1 each 10/21/2024 10/22/2024 Active Start: 04-20-2024 End: 04-21-2024 enteric contrast (will be pr ovided with radiology test) Indications: Diarrhea, unspecified type For CT ENTEROGRAPHY W IVCON order Administer, As Directed One Time Only, via Oral, Rectal, both Oral and Rectal, Enteric Tube, Stoma or Indwelling Catheter, Enteric Contrast as designated per enteric contrast guidelines. 1 Each 04/20/2024 04/21/2024 erythromycin 0.005 mg/mg ophthalmic ointment (4 sources) Macrolide, Macrolide Antimicrobial Start: 07-21-2024 End: 07-31-2024 erythromycin (ROMYCIN) 5 mg/gram (0.5 %) ophthalmic ointment Use 1 application in both eyes two times a day for 10 days. into affected eye(s). 3.5 g 07/21/2024 07/31/2024 Active famotidine 20 mg oral tablet (20 sources) Histamine-2 Receptor Antagonist Start: 02-22-2025 take 1 tablet by mouth once daily at bedtime famotidine (PEPCID) 20 mg tablet Take 20 mg by mouth daily at bedtime. 02/22/2025 Active Start: 11-13-2024 End: 02-11-2025 take 1 tablet by mouth twice daily famotidine (PEPCID) 20 mg tablet Indications: Hiatal hernia , Chronic gastritis without bleeding, unspecified gastritis type Take 1 tablet by mouth two times a day. 180 tablet 11/13/2024 02/11/2025 Active fluorouracil 50 mg/ml topical cream (15 sources) Nucleoside Metabolic Inhibitor Start: 07-12-2020 fluorouraciL (EFUDEX ) 5 % cream 07/12/2020 Active GUAIFENESIN/DEXTROMETHO RPHAN (MUCINEX DM ORAL) (17 sources) GUAIFENESIN/DEXT ROMETH ORPHAN (MUCINEX DM ORAL) Take by mouth. 0 Active GUAIFENESIN/DEXT ROMETHORPHAN (MUCINEX DM ORAL) Take by mouth. Active guaifenesin/dextromethorphan (MUCINEX DM ORAL) (20 sources) guaifenesin/dext romethorphan (MUCINEX DM ORAL) Take by mouth two times a day. Active iv contrast (will be provide d with radiology test) (20 sources) Start: 10-22-19 End: 10-23-19 iv contrast (will be provide d with radiology test) Indications: Other ascites , Generalized abdominal pain CT Enterography W Inject, intravenously, once for [...] the CT contrast administration guidelines link. 1 each 10/21/2024 10/22/2024 Active Start: 04-20-2024 End: 04-21-2024 iv contrast (will [...] administration guidelines link. 1 Each 03/17/2024 Active ketorolac tromethamine 5 mg/ml ophthalmic solution (9 sources) Nonsteroidal Anti-inflammatory Drug, Cyclooxygenase Inhibitor Start: 10-01-2022 take 2 drop(s) into the eye(s) twice daily ketorolac (ACULAR) 0.5 % ophthalmic solution INSTILL 2 DROPS INTO AFFECTED EYE TWICE DAILY 10/01/2022 Active loratadine 10 mg oral tablet (20 sources) Loratadine (CLARITIN PO) Take 10 mg by mouth Active meloxicam 15 mg oral tablet (20 sources) Nonsteroidal Anti-inflammatory Drug Start: 07-20-2020 End: 03-12-2025 take 1 tablet by mouth once daily Meloxicam 15 mg tablet Active 15 MG PO Daily August 13, 2023 1:00am Start: 02-25-2017 End: 02-25-2018 take 1 tablet [...] 07/20/2020 Discontinued metOLazone 5 mg oral tablet (20 sources) Thiazide-like Diuretic Start: 11-13-2024 End: 02-11-2025 take 1 tablet by mouth once daily metOLazone (ZAROXOLYN) 5 mg tablet Indications: Anasarca Take 1 tablet by mouth once daily. 90 tablet 11/13/2024 Active Start: 08-21-2024 End: 09-20-2024 take 1 tablet by mouth once daily metOLazone (ZAROXOLYN) 5 mg tablet Take 1 tablet by mouth once daily. 30 tablet 08/21/2024 09/04/2024 Discontinued 24 hr mirabegron 50 mg extended release oral tablet (18 sources) beta3-Adrenergic Agonist Start: 01-26-2025 End: 04-26-2025 take 1 tablet by mouth once daily in the evening mirabegron (MYRBETRIQ) 50 mg Tb24 Indications: Urge incontinence Take 1 tablet by mouth every evening. 90 tablet 1 01/26/2025 04/26/2025 Active Start: 12-15-2024 End: 01-14-2025 take 1 tablet by mouth once daily in the evening mirabegron (MYRBETRIQ) 50 mg Tb24 Indications: Urge incontinence Take 1 tablet by mouth every evening. 30 tablet 2 12/15/2024 01/14/2025 take 1 tablet by av th at bedtime, then take 1 tablet by mouth every twenty-four hours mirabegron ER (Myrbetriq) 50 MG 24 hr tablet Take 50 mg by mouth at bedtime Do not crush, chew, or split. Active Multiple Vitamins-Minerals (MULTIVITAMIN ADULTS 50+ PO) (8 sources) Multiple Vitamin s-Minerals (MULTIVITAMIN ADULTS 50+ PO) Take by mouth Active multivit-min/ferrous fumarat e (MULTI VITAMIN ORAL) (20 sources) take 1 tablet by mouth once daily multivit-min/ferrous fumarate (MULTI VITAMIN ORAL) Take 1 [...] a day for 7 days Jun, Not-Taking/PRN [place] 3 (11 sources) [place] 3 Active [place]-3 Fatty Acids (4 sources) Start: 08-13-19 24 take 500 mg by mouth once daily [place]-3 Fatty Acids Active 500 MG PO Daily August 13, 2023 1:00am [place]-3 Fatty Acids 500 mg capsule (1 source) Start: 08-13-19 24 take 1 capsule by mouth once daily [place]-3 Fatty Acids 500 mg capsule Active 500 MG PO Daily August 13, 2023 1:00am ondansetron 4 mg disintegrating oral tablet (1 source) Serotonin-3 Receptor Antagonist Start: 07-14-19 25 take 1 tablet by mouth every eight hours as needed for nausea and vomiting Ondansetron 4 mg tablet,disintegratin g Active 4 MG PO Every 8 hours as needed for nausea and vomiting 04 15July 14, 2024 1:00am pantoprazole 40 mg delayed release oral tablet (20 sources) Proton Pump Inhibitor Start: 02-23-20 take 1 tablet by mouth once daily pantoprazole DR (PROTONIX) 40 mg tablet Take 1 tablet by mouth once daily. 02/22/2025 Active Start: 07-23-2024 End: 11-13-2024 take 1 tablet by mouth once daily Pantoprazole 40 mg tablet,delayed release (DR/EC) Active 40 MG PO Daily July 23, 2024 1:00am Start: 04-28-2024 End: 10-14-2024 take 1 tablet by mouth twice daily pantoprazole DR (PROTONIX) 40 mg tablet Take 1 tablet by mouth two times a day. 180 tablet 04/28/2024 10/14/2024 Discontinued (Duplicate Entry) microencapsulated potassium chloride 20 meq extended release oral tablet (20 sources) Start: 12-15-2024 End: 03-15-2025 take 2 tablets by mouth three times daily potassium chloride ER (KLOR-CON M20) 20 mEq tablet Indications: Hypokalemia Take 2 tablets by mouth three times a day. 540 tablet 12/15/2024 03/15/2025 Active Start: 09-04-2024 End: 12-03-2024 take 2 tablets by mouth three times daily potassium chloride (K-TAB) 20 mEq TbER Indications: Recurrent 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 , Hypokalemia 2 tablets by ORAL/FEEDING TUBE route three times a day. 540 tablet 09/04/2024 12/03/2024 Start: 05-20-2024 End: 09-10-2024 take 2 tablets by mouth twice daily potassium chloride ER (KLOR-CON M20) 20 mEq tablet Indications: Hypokalemia Take 2 tablets by mouth two times a day. 360 tablet 06/12/2024 09/04/2024 Discontinued Start: 01-15-2024 End: 04-14-2024 take 1 tablet [...] 5 days. 5 tablet 0 11/29/2023 12/04/2023 take 2 capsules by m outh in the morning potassium chloride ER (Micro-K) 10 MEQ ER capsule Take 20 mEq by mouth in the morning and 20 mEq before bedtime. Do not crush or chew. Active prednisoLONE acetate 10 mg/ml ophthalmic suspension (9 sources) Corticosteroid Start: 10-01-2022 prednisoLONE acetate (PRED FORTE) 1 % ophthalmic suspension INSTILL 1 DROP INTO AFFECTED EYE INTO AFFECTED EYE 4 TIMES DAILY DIRECTED 10/01/2022 Active quiNINE sulfate 324 mg oral capsule (20 sources) Antimalarial Start: 10-19-2024 End: 01-26-2025 take 1 capsule by mouth twice daily quiNINE 324 mg capsule Indications: Cramp and spasm Take 1 capsule by mouth two times a day. 180 capsule 01/26/2025 Active Start: 09-24-2024 End: 10-19-2024 take 1 capsule by mouth every twelve hours quiNINE 324 mg capsule Take 1 capsule by mouth every 12 hours. 09/24/2024 10/19/2024 Discontinued Start: 07-21-2024 End: 08-20-2024 take 1 capsule by mouth twice daily quiNINE 324 mg capsule Indications: Muscle cramps Take 1 capsule by mouth two times a day. 60 capsule 2 07/21/2024 08/20/2024 Active take 1 capsule by mo uth every eight hours quiNINE (Qualaquin) 324 MG capsule Take 324 mg by mouth every 8 (eight) hours Active spironolactone 25 mg oral tablet (15 sources) Aldosterone Antagonist End: 02-25-2025 spironolactone (Aldactone) 25 MG tablet Take by mouth Daily Active tamsulosin hydrochloride 0.4 mg oral capsule (20 sources) alpha-Adrenergic Masha Start: 10-21-2020 take 1 capsule by mouth once daily Tamsulosin 0.4 mg Capsule Active 0.4 MG PO Daily October 21, 2020 12:00am torsemide 100 mg oral tablet (20 sources) Loop Diuretic Start: 05-13-2024 End: 02-11-2025 take 1 tablet by mouth once daily torsemide (DEMADEX) 100 mg tablet Indications: Recurrent 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 , Anasarca Take 1 tablet by mouth once daily. 90 tablet 1 11/13/2024 Active traZODone hydrochloride 100 mg oral tablet (15 sources) Serotonin Reuptake Inhibitor Start: 09-04-2024 End: 10-04-2024 take 1 tablet by mouth once daily at bedtime traZODone (DESYREL) 100 mg tablet Indications: Chronic insomnia Take 1 tablet by mouth daily at bedtime. 30 tablet 2 09/04/2024 10/04/2024 Active vit A-vit C-vit D-kbym-xjdkut (EYE VITAMIN AND MINERALS) 7,160-113-100 khpy-kc-vdmq Tab (4 sources) take 1 tablet by mouth once daily in the morning vit A-vit C-vit P-ldjy-cdvsvk (EYE VITAMIN AND MINERALS) 7,160-113-100 busf-ou-ywec Tab Take 1 tablet by mouth every morning . 0 Active vit A-vit C-vit S-xjde-aaunjk 7,160-113-100 pqoq-jl-ojar Tab (12 sources) take 1 tablet by mouth once daily in the morning vit A-vit C-vit N-gwvi-fpsuth 7,160-113-100 dsom-hl-lzty Tab Take 1 tablet by mouth every morning . Active take 1 tablet by av th once daily in the morning vit A-vit C-vit R-mvib-ymiqda 7,160-113- 100 jxrw-kq-nvmj Tab Take 1 tablet by mouth every morning . 0 Active Vitamin C Oral (1 source) take 1 tablet by mouth once daily in the morning ASCORBATE CALCIUM (VITAMIN C ORAL) Take 1 tablet by mouth every morning . Active Vit A 7,160 Unit-Vit C 113 Mg-Vit E 100 Tjke-Bllp-Srheml Tablet (2 sources) take 1 tablet by mouth once daily in the morning vit A-vit C-vit M-bgql-yoxueu (EYE VITAMIN AND MINERALS) 7,160-113-100 giqe-pa-eqef Tab Take 1 tablet by mouth every morning . Active zolpidem tartrate 5 mg oral tablet (2 sources) gamma-Aminobutyric Acid-ergic Agonist Start: 12-02-2023 End: 12-02-2023 Zolpidem 5 mg tablet Active 0 PO Daily at bedtime as needed for insomnia 14 December 02, 2023 5:32pm 1-2 orally daily at bedtime PRN; Completed/Discontinued Medications Medication Drug Class(es) Dates Sig [...] by inhalation every six hours as needed ipratropium-albuter ol (DUONEB) 0.5 mg-3 mg(2.5 mg base)/3 mL nebu Inhale 3 mL as instructed every 6 hours as needed for wheezing/shortness of breath. 360 mL 11/23/2023 05/13/2024 Discontinued Allopurinol (20 sources) Xanthine Oxidase Inhibitor Start: 12-30-2023 End: 01-24-2024 Allopurinol 300 mg tablet Discontinued 0 .ROUTE .COMPLEX 90 December 30, 2023 12:30pm January 24, 2024 1:49pm TAKE 1 TABLET DAILY Start: 10-21-2020 End: 12-30-2023 take 1 tablet by mouth once daily allopurinol (ZYLOPRIM) 300 mg tablet Take 300 mg by mouth once daily. 10/21/2020 Active amoxicillin 500 mg oral capsule (20 sources) Penicillin-class Antibacterial Start: 01-28-2024 End: 11-19-2024 amoxicillin (AMOXIL) 500 mg capsule 01/28/2024 11/19/2024 Discontinued Start: 01-28-2024 amoxicillin (A MOXIL) 500 MG capsule Take 4 capsules one hour prior to dental procedure/cleaning . 4 capsule 1 01/28/2024 Active amylase 233073 unt / lipase [id number] unt / protease [id number] unt delayed release oral capsule (9 sources) Start: 06-12-2024 End: 07-21-2024 take 2 capsules by mouth three times daily at mealtime yfyedr-ekggazkm-dulwhki (CREON) 36,000-114,000- 180,000 unit delayed release capsule Indications: Exocrine pancreatic insufficiency Take 2 capsules by mouth three times a day with meals. 200 capsule 1 06/12/2024 07/21/2024 Discontinued budesonide 3 mg delayed release oral capsule (20 sources) Corticosteroid Start: 04-30-2024 End: 10-14-2024 take 3 capsules by mouth once daily, [...] tablet by mouth twice daily calcium carbonate (OS-ADRIANNE 500) 500 mg calcium (1,250 mg) tablet Take 1 tablet by mouth two times a day. 180 tablet 12/26/2023 05/13/2024 Discontinued CALCIUM-MAGNESI UM-ZINC ORAL (18 sources) End: 05-18-2024 [id number] ORAL Take by mouth. 05/18/2024 Discontinued CALCIUM-MAGNESIU M-ZINC ORAL Take by mouth. Active cephalexin 500 mg oral capsule (20 sources) Cephalosporin Antibacterial Start: 01-10-2023 take 1 capsule by mouth every eight hours Cephalexin 500 MG 1 capsule Orally tid for 5 days Dec, Not-Taking/PRN Start: 07-11-2022 [facility] Cephalexin 500 MG 1 capsule Orally twice daily for 7 days Jun, Not-Taking/PRN doxycycline hyclate 100 mg oral capsule (11 sources) Tetracycline-class Drug Start: 06-24-2022 take 1 capsule by mouth every twelve hours Doxycycline Hyclate 100 MG 1 capsule Orally Twice a day for 7 days Jun, Not-Taking/PRN fluticasone propionate 0.05 mg/actuat metered dose nasal spray (5 sources) Corticosteroid Start: 12-26-2023 End: 01-25-2024 take 2 spray(s) nasal route once daily at bedtime fluticasone (FLONASE) 50 mcg/actuation nasal spray Use 2 Sprays in each nostril daily at bedtime. 16 g 1 12/26/2023 01/15/2024 Discontinued Fluticasone Propion-Salmeter ol (15 sources) Corticosteroid, beta2-Adrenergic Agonist Start: 08-08-2023 End: 08-13-2023 take 1 dose by mouth every twelve hours Fluticasone Propion-Salmeterol 100-50 mcg/dose blister with device Discontinued 0 .ROUTE .COMPLEX 60 August 08, 2023 10:43am August 13, 2023 12:21pm INHALE 1 DOSE BY MOUTH EVERY 12 HOURS Start: 08-08-2023 End: 08-13-2023 take 1 dose by mouth every twelve hours Fluticasone Propion-Salmeterol Discontinued 0 .ROUTE .COMPLEX 60 August 08, 2023 10:43am August 13, 2023 12:21pm INHALE 1 DOSE BY MOUTH EVERY 12 HOURS Start: 08-07-2023 End: 08-08-2023 take 1 puff(s) by inhalation every twelve hours Fluticasone Propion-Salmeterol 115-21 mcg/actuation HFA aerosol inhaler Discontinued 2 PUFF INHALATION Every 12 hours 06 15August 07, 2023 10:58am August 08, 2023 10:43am Start: 08-07-2023 End: 08-08-2023 take 1 puff(s) by inhalation every twelve hours Fluticasone Propion-Salmeterol Discontinued 2 PUFF INHALATION Every 12 hours 06 15August 07, 2023 10:58am August 08, 2023 10:43am Start: 08-06-2023 End: 08-07-2023 take 1 puff(s) by inhalation every twelve hours Fluticasone Propion-Salmeterol 115-21 mcg/actuation HFA aerosol inhaler Discontinued 2 PUFF INHALATION Every 12 hours 06 15August 06, 2023 1:00am August 07, 2023 10:58am Start: 08-06-2023 End: 08-07-2023 take 1 puff(s) [...] every afternoon. 90 tablet 02/12/2024 02/12/2024 Discontinued lidocaine 0.04 mg/mg medicated patch (11 sources) [...] 23, 2023. 0 12/23/2023 Active Start: 2023 End: 03-12-2025 take 1 tablet by mouth once daily Losartan 25 mg tablet Active 25 MG PO Daily August 13, 2023 1:00am magnesium oxide 400 mg oral tablet (20 [...] 1 Each 0 11/23/2023 02/21/2024 Active omeprazole 40 mg delayed release oral capsule (20 sources) Proton Pump Inhibitor Start: 07-20-2024 End: 07-23-2024 take 1 capsule by mouth once daily Omeprazole 40 mg capsule,delayed release(DR/EC) Discontinued 40 MG PO Daily 90 90 July 20, 2024 10:20pm July 23, 2024 10:20pm Start: 12-22-2021 take [facility] as needed Omeprazole 20MG Omeprazole 20MG, 1 (one) Capsule Capsule daily on empty stomach followed in 30 minutes by bkt # 0, 12/22/2021, No Refill. Active Oral daily on empty stomach followed in 30 minutes by bkt for 0 *[facility] 08 Dec, 2021 Not-Taking/PRN Start: 09-28-2020 End: 03-12-2025 take 1 capsule by mouth once daily Omeprazole 20 mg capsule,delayed release(DR/EC) Discontinued 20 MG PO Daily October 21, 2020 12:00am December 12, 2023 9:40am Start: 09-28-2020 take 2 capsules by m outh twice daily omeprazole (PRILOSEC) 20 mg capsule Take 40 mg by mouth two times a day. 0 09/28/2020 Active Omeprazole 20 mg capsule,delayed release(DR/EC) (1 source) Start: 12-12-2023 End: 07-20-2024 Omeprazole 20 mg capsule,delayed release(DR/EC) Discontinued 0 .ROUTE .COMPLEX 90 December 12, 2023 5:53pm July 20, 2024 10:21pm TAKE 1 CAPSULE DAILY ON AN EMPTY STOMACH, FOLLOWED IN 30 MINUTES BY BREAKFAST oxyCODONE hydrochloride 5 mg oral tablet (4 sources) Opioid Agonist Start: 11-23-2023 End: 11-30-2023 take 1 tablet by mouth every six hours as needed oxyCODONE IR (ROXICODONE) 5 mg immediate release tablet Indications: Pleural effusion , Postoperative pain Take 1 tablet by mouth every 6 hours as needed for up to 7 days. 28 tablet 0 11/23/2023 11/30/2023 polyethylene glycol 3350 79257 mg powder for oral solution (4 sources) Osmotic Laxative Start: 11-24-2023 End: 12-01-2023 polyethylene glycol 3350 17 gram packet Take 1 Packet by mouth once daily for 7 days. Dissolve dose in 4 - 8 ounces of liquid and take as directed. 7 Packet 0 11/24/2023 12/01/2023 predniSONE 10 mg oral tablet (20 sources) Start: 11-07-2023 take 1 tablet by mouth once daily Prednisone 50 mg tablet Active 50 MG PO Daily 3 November 07, 2023 12:00am Start: 08-13-2023 End: 07-21-2024 predniSONE (DELTASONE) 10 mg tablet [...] stip 82 tablet 01/15/2024 07/21/2024 Discontinued Start: 07-23-2023 predniSONE 20 MG 1 tablet Orally bid w/ food x 4 days then qd w/ food x 4 days for 8 days Jul, Active raNITIdine 300 mg oral tablet (16 sources) Histamine-2 Receptor Antagonist Start: 10-21-2020 End: 08-13-2023 take 1 tablet by mouth once daily Ranitidine Hcl 300 mg Tablet Discontinued 300 MG PO Daily October 21, 2020 12:00am August 13, 2023 12:21pm Ranitidine HCl A ctive sildenafil 100 mg oral tablet (11 sources) Phosphodiesterase 5 Inhibitor Start: 01-03-2022 Sildenafil Citrate 100MG Sildenafil Citrate 100MG, 1 (one) Tablet 1 PO PRN ED # 6, 01/03/2022, Ref. x5. Active Oral 1 PO PRN ED for 30 *Pick strength-form from [facility] for eRX* Dec, Not-Taking/PRN sucralfate 1000 mg oral tablet (16 sources) Aluminum Complex Start: 12-15-2024 End: 01-14-2025 take 1 tablet by mouth four times daily sucralfate (CARAFATE) 1 gram tablet Indications: Hiatal hernia Take 1 tablet by mouth four times daily. 120 tablet 2 12/15/2024 01/14/2025 Start: 04-28-2024 End: 05-28-2024 take 1 tablet by mouth twice daily sucralfate (CARAFATE) 1 gram tablet Take 1 tablet by mouth two times a day. 60 tablet 04/28/2024 05/28/2024 Problems Active Problems Problem Classification Problem Date Documented Da te Episodic/Chronic Abdominal hernia (2 sources) Hiatal hernia; Translations: [Diaphragmatic hernia without obstruction or gangrene] 11-13-2024 Episodic Acquired foot deformities (6 sources) Toe joint rigid; Translations: [Hallux rigidus, left foot] Onset: Chronic Acute bronchitis (1 source) Acute bronchitis due to other specified organisms Episodic Cataract (14 sources) After-cataract of bilateral eyes; Translations: [Other secondary cataract, bilateral] Onset: 5 08-12-2024 Chronic Chronic kidney disease (7 sources) Chronic kidney disease stage 3A ; Translations: [Stage 3a chronic kidney disease (HCC)] Onset: 5 01-26-2025 Chronic Chronic kidney disease (2 sources) Chronic kidney disease; Translations: [Stage 3a chronic kidney disease (HCC)] Onset: 5 Chronic obstructive pulmonary disease and bronchiectasis (2 sources) Unspecified chronic bronchitis; Translations: [Chronic bronchitis] Onset: 4 03-17-2024 Chronic Chronic ulcer of skin (6 sources) Pressure ulcer of other site, stage 2; Translations: [Pressure ulcer, other site] 03-12-2025 Chronic Deficiency and other anemia (3 sources) Anemia; Translations: [Anemia, unspecified] 02-12-2024 Episodic Deficiency and other anemia (1 source) Anemia, unspecified; Translations: [Anemia, unspecified type] Onset: Episodic Diseases of white blood cells (18 [...] disease; Translations: [Gastro-esophageal reflux disease without esophagitis] Onset: Chronic Essential hypertension (20 sources) Essential hypertension; Translations: [Essential (primary) hypertension] Onset: Chronic Gastritis and duodenitis (1 source) Chronic gastritis; Translations: [Unspecified chronic gastritis without bleeding] 11-13-2024 Chronic Gastrointestinal hemorrhage (20 sources) Blood-tinged feces; Translations: [Melena] 05-29-2023 Episodic Comment on above: Problem List clean-u p per request of Phys. EHR Cmte Genitourinary symptoms and ill-defined conditions (2 sources) Urge incontinence of urine; Translations: [Urge incontinence] 12-15-2024 Chronic Heart valve disorders (4 sources) Cardiac murmur, unspecified; Translations: [Undiagnosed cardiac murmurs] 08-13-2023 Episodic Hemorrhoids (11 sources) Hemorrhoids; Translations: [Unspecified hemorrhoids] Episodic Hyperplasia of prostate (11 sources) Lower urinary tract symptoms due to benign prostatic hypertrophy; Translations: [Benign prostatic hyperplasia with lower urinary tract symptoms] Chronic Malaise and fatigue (2 sources) Other fatigue; Translations: [Fatigue] Episodic Miscellaneous mental health disorders (2 sources) Chronic insomnia; Translations: [Psychophysiologic insomnia] 09-04-2024 Chronic Nausea and vomiting (13 sources) Nausea and vomiting; Translations: [Nausea with [...] 5 08-23-2014 Other aftercare (1 source) Other [facility] (current) drug therapy Episodic Other aftercare (5 sources) Surgical follow-up; Translations: [Encounter for follow-up examination after completed treatment for conditions other than malignant neoplasm] 11-24-2023 Episodic Other aftercare (2 sources) Follow-up status; Translations: [Encounter for follow-up examination after completed treatment for conditions other than malignant neoplasm] 11-29-2023 Episodic Other circulatory disease (1 source) Elevated blood-pressure reading, without diagnosis of hypertension Episodic Other circulatory disease (1 source) Orthostatic hypotension; Translations: [Orthostatic hypotension] 01-26-2025 Episodic Other connective tissue disease (20 sources) History of total knee arthroplasty; Translations: [Presence of artificial knee joint, bilateral] Onset: 7 06-25-2016 Chronic Other connective tissue disease (1 source) Metatarsalgia of left foot; Translations: [Metatarsalgia, left foot] 10-08-2022 Episodic Other connective tissue disease (2 sources) Cramp; Translations: [Cramp and spasm] 07-21-2024 Episodic Other connective tissue disease (4 sources) Spasm; Translations: [Cramp and spasm] 10-19-2024 Episodic Other connective tissue disease (6 sources) Pain of toe of left foot; Translations: [Pain in left toe(s)] 03-12-2025 Episodic Other diseases of veins and lymphatics (2 sources) Disorder of vein of lower extremity; Translations: [Venous insufficiency (chronic) (peripheral)] 08-27-2024 Episodic Other ear and sense organ disorders (1 source) Impacted cerumen; Translations: [Impacted cerumen, unspecified ear] 03-03-2024 Episodic Other gastrointestinal disorders (15 sources) Dysphagia; Translations: [Dysphagia, unspecified] 05-29-2023 Episodic Comment on above: Problem List clean-u p per request of Phys. EHR Cmte Other gastrointestinal disorders (1 source) Dysphagia, unspecified; Translations: [Dysphagia] Episodic Other gastrointestinal disorders (4 sources) Diarrhea; Translations: [Diarrhea, unspecified] 03-31-2024 Episodic Other gastrointestinal disorders (9 sources) Ascites; Translations: [Other ascites] 10-21-2024 Episodic Other hematologic conditions (1 source) Elevated erythrocyte sedimentation rate; Translations: [Elevated sed rate] Onset: 4 Episodic Other injuries and conditions due to external causes (1 source) Other injury of unspecified body region, initial encounter; Translations: [Bruising] Onset: 5 Episodic Other liver diseases (1 source) Unspecified cirrhosis of liver; Translations: [Cirrhosis of liver without ascites, unspecified hepatic cirrhosis type (HCC)] Onset: 5 Chronic Other liver diseases (8 sources) Alkaline phosphatase raised; Translations: [Abnormal levels of other serum enzymes] 10-15-2024 Episodic Other liver diseases (4 sources) Large liver; Translations: [Hepatomegaly, not elsewhere classified] 11-13-2024 Episodic Other lower respiratory disease (5 sources) Interstitial lung disease; Translations: [Interstitial pulmonary disease, unspecified] 03-17-2024 Chronic Other lower respiratory disease (3 sources) Interstitial pulmonary disease, unspecified; Translations: [Interstitial pulmonary disease (HCC)] Onset: 4 Chronic Other lower respiratory disease (19 sources) Cough; Translations: [Cough, unspecified] Onset: 5 08-13-2023 Episodic Other lower respiratory disease (4 sources) Other forms of dyspnea; Translations: [Other respiratory abnormalities] 08-13-2023 Episodic Other lower respiratory disease (1 source) Viral respiratory infection; Translations: [Other specified respiratory disorders] 07-14-2024 Episodic Other lower respiratory disease (1 source) Cough; Translations: [Subacute cough] 08-13-2023 Episodic Other lower respiratory disease (1 source) Other specified respiratory disorders; Translations: [Unspecified viral infection] 07-14-2024 Episodic Other lower respiratory disease (5 sources) Peripheral cyanosis; Translations: [Cyanosis] 11-20-2024 Episodic Other male genital disorders (10 sources) [...] left lower limb] Onset: 3 Chronic Other nervous system disorders (1 source) Metabolic encephalopathy; Translations: [Metabolic encephalopathy] 01-26-2025 Chronic Other nervous system disorders (6 sources) Difficulty walking; Translations: [Difficulty in walking, not elsewhere classified] 03-12-2025 Chronic Other non-traumatic joint disorders (2 sources) [...] Chronic Other nutritional; endocrine; and metabolic disorders (4 sources) Hypomagnesemia; Translations: [Hypomagnesemia] 02-12-2024 Chronic Other nutritional; endocrine; and metabolic disorders (1 source) Obesity, unspecified; Translations: [Obesity, Class I, BMI 30-34.9] Onset: 4 Chronic Other nutritional; endocrine; and metabolic disorders (1 source) Hypomagnesemia; Translations: [Hypomagnesemia] Onset: 5 Chronic Other screening for suspected conditions (not mental disorders or infectious disease) (20 sources) Encounter for screening for malignant neoplasm of prostate; Translations: [Elevated C-reactive protein] Onset: 2 Episodic Other skin disorders (2 sources) Actinic keratosis; [...] caused by tuberculosis or sexually transmitted disease) (17 sources) Pericardial effusion; Translations: [Pericardial effusion] Onset: 4 08-21-2023 Episodic Residual codes; unclassified (1 source) Bilateral lower limb edema; Translations: [Localized edema] 01-19-2024 Episodic Retinal detachments; defects; vascular occlusion; and retinopathy (14 sources) Nonexudative age-related macular degeneration; Translations: [Nonexudative age-related macular degeneration, bilateral, early dry stage] Onset: 02-08-12-2024 Chronic Skin and subcutaneous tissue infections (6 sources) Cellulitis of left foot; Translations: [Cellulitis of left lower limb] 03-12-2025 Episodic Systemic lupus erythematosus and connective tissue disorders (1 source) Connective tissue disease overlap syndrome; Translations: [Other overlap syndromes] 12-15-2024 Chronic Unclassified (1 source) Established Patient Follow-Up Onset: Unclassified (1 source) Cough, unspecified type; Translations: [Cough, unspecified type] Onset: 5 Past or Other Problems Problem Classification Problem Date Documented Da te Episodic/Chronic Abdominal pain (7 sources) Abdominal pain; Translations: [Unspecified abdominal pain] Onset: 04-22-2024 04-22-2024 Episodic Acute and unspecified renal failure (20 sources) Acute renal failure syndrome; Translations: [Acute kidney failure, unspecified] Onset: 10-15-2024 10-15-2024 Episodic Acute posthemorrhagic anemia (18 sources) Acute posthemorrhagic anemia; Translations: [Acute posthemorrhagic anemia] Onset: 08-24-2014 08-24-2014 Episodic Esophageal disorders (4 sources) Esophageal disorders; Translations: [Gastro-esophageal reflux disease with esophagitis, without bleeding] Fluid and electrolyte disorders (4 sources) Hypokalemia; Translations: [Hypokalemia] Onset: 12-22-2024 06-12-2024 Episodic Genitourinary symptoms and ill-defined conditions (20 sources) Retention of urine; Translations: [Retention of urine, unspecified] Onset: 08-25-2014 08-25-2014 Episodic Inflammation; infection of eye (except that caused by tuberculosis or sexually transmitteddisease) (14 sources) Blepharitis of upper and lower eyelids of bilateral eyes; Translations: [Unspecified blepharitis right eye, upper and lower eyelids] Onset: 08-12-2024 08-12-2024 Episodic Other aftercare (2 sources) Encounter for [...] circulatory system] Onset: 12-25-2023 12-25-2023 Episodic Other circulatory disease (1 source) Personal history of other diseases of the circulatory system; Translations: [History of pericarditis] Onset: 12-25-2023 Episodic Other circulatory disease (1 source) Other specified symptoms and signs involving the circulatory and respiratory systems; Translations: [Poor perfusion of leg] Onset: 11-12-2024 Episodic Other connective tissue disease (2 sources) Pain in right foot; Translations: [Pain in right foot] Onset: 08-28-2022 Episodic Other connective tissue disease (2 sources) Pain in left foot; Translations: [Pain in left foot] Onset: 08-28-2022 Episodic Other connective tissue disease (1 source) Other specified soft tissue disorders; Translations: [Leg swelling] Onset: 11-12-2024 Episodic Other eye disorders (14 sources) Dry eyes; Translations: [Dry eye syndrome of bilateral lacrimal glands] Onset: 08-12-2024 08-12-2024 Episodic Other eye disorders (14 sources) Chalazion of left upper eyelid; Translations: [Chalazion left upper eyelid] Onset: 08-12-2024 08-12-2024 Episodic Other gastrointestinal disorders (20 sources) Esophageal dysphagia; Translations: [Other dysphagia] Onset: 09-24-2024 08-24-2024 Episodic Other gastrointestinal disorders (2 sources) Other ascites; Translations: [Other ascites] Onset: 11-04-2024 Episodic Other gastrointestinal disorders (1 source) Other dysphagia; Translations: [Esophageal dysphagia] Onset: 09-24-2024 Episodic Other gastrointestinal disorders (1 source) Diarrhea, unspecified; Translations: [Diarrhea, unspecified type] Onset: 04-22-2024 Episodic Other hematologic conditions (20 sources) ESR raised; Translations: [Elevated erythrocyte sedimentation rate] Onset: 12-25-2023 12-25-2023 Episodic Other liver diseases (2 sources) Hepatomegaly, not elsewhere classified; Translations: [Hepatomegaly] Onset: 11-17-2024 Episodic Other liver diseases (2 sources) Abnormal levels of other serum enzymes; Translations: [Elevated alkaline phosphatase level] Onset: 10-23-2024 Episodic Other lower respiratory disease (20 sources) Chronic cough; Translations: [Chronic cough] Onset: 03-17-2024 01-06-2024 Episodic Other lower respiratory disease (20 sources) Nodule of lung; Translations: [Solitary pulmonary nodule] Onset: 05-19-2024 05-18-2024 Episodic Other lower respiratory disease (1 source) Cyanosis; Translations: [Extremity cyanosis] Onset: 11-20-2024 Episodic Other nervous system disorders (20 sources) Postoperative pain ; Translations: [Other acute postprocedural pain] Onset: 11-21-2023 11-21-2023 Episodic Other upper respiratory disease (1 source) Other diseases of bronchus, not elsewhere classified; Translations: [Bronchiolar disease] Onset: 09-04-2024 Episodic Peritonitis and intestinal abscess (2 sources) Serositis; Translations: [Other peritonitis] Onset: 10-23-2024 10-19-2024 Episodic Pleurisy; pneumothorax; pulmonary collapse (20 sources) Pleural effusion; Translations: [Pleural effusion, not elsewhere classified] Onset: 11-20-2023 10-21-2023 Episodic Residual codes; unclassified (20 sources) Edema, generalized; Translations: [Generalized edema] Onset: 12-20-2023 Resolved: 12-26-2023 12-20-2023 Episodic Residual codes; unclassified (2 sources) Generalized edema; Translations: [Anasarca] Onset: 12-26-2023 Episodic Unclassified (3 sources) Subacute cough R05.2 Unclassified (1 source) Cough, unspecified; Translations: [Cough, unspecified] Onset: 09-06-2014 Unclassified (2 sources) Decreased GFR 10-15-2024 Results Test Name Value Interpretation Reference Range Facility XR CHEST 2V FRONTAL/LATon XR CHEST 2V FRONTAL/LAT Normal [facility] Basic metabolic 2000 panelon 03-26-2025 Anion gap [Moles/Vol] 13 mmol/L Normal 8-15 [facility] Comment on above: Order Comment: Speci men Type: BLOOD SPECIMEN Ordering Facility: [facility] Address: [address] [place] [address] Performed By: #### 2 4321-2 #### [facility] CLIA [id number] [place] [address] [place] Calcium [Mass/Vol] 8.7 mg/dL Normal 8.5-10.2 [facility] Comment on above: Order Comment: Speci men Type: BLOOD SPECIMEN Ordering Facility: [facility] Address: [address] [place] [address] Performed By: #### 2 4321-2 #### [facility] CLIA [id number] [place] [address] [place] Chloride [Moles/Vol] 96 mmol/L Low 98-107 [facility] Comment on above: Order Comment: Speci men Type: BLOOD SPECIMEN Ordering Facility: [facility] Address: [address] [place] [address] Performed By: #### 2 4321-2 #### [facility] [place] [id number] [place] [address] [place] CO2 [Moles/Vol] 24 mmol/L Normal 22-30 [facility] Comment on above: Order Comment: Speci men Type: BLOOD SPECIMEN Ordering Facility: [facility] Address: [address] [place] [address] Performed By: #### 2 4321-2 #### [facility] [place] [id number] [address] [place] [address] [place] Creatinine [Mass/Vol] 1.59 mg/dL High 0.73-1.22 [facility] Comment on above: Order Comment: Speci men Type: BLOOD SPECIMEN Ordering Facility: [facility] Address: [address] [place] [address] Performed By: #### 2 4321-2 #### [facility] CLIA [id number] [address] [place], [place] [address] [place] eGFRcr SerPlBld CKD-EPI 2020 45 mL/min/1.73m??? Low >=60 [facility] Comment on above: Order Comment: Speci men Type: BLOOD SPECIMEN Ordering Facility: [facility] Address: [address] [place] [address] Result Comment: Kristel mated Glomerular Filtration Rate [...] GFR. Performed By: #### 2 4321-2 #### [facility] CLIA [id number] [address] [place] [address] [place] Glucose [Mass/Vol] 110 mg/dL High 74-99 [facility] Comment on above: Order Comment: Alexandru campos Type: BLOOD SPECIMEN Ordering Facility: [facility] Address: [address] [place] [address] Result Comment: The [place] Diabetes Association (ADA) provides guidance for cutoff [...] Standards of Medical Care in Diabetes 2016, [place] [employer]. Diabetes Care. 2016.39(Suppl 1). Performed By: #### 2 4321-2 #### [facility] CLIA [id number] [address] [place] [address] [place] Potassium [Moles/Vol] 3.8 mmol/L Normal 3.7-5.1 [facility] Comment on above: Order Comment: Alexandru campos Type: BLOOD SPECIMEN Ordering Facility: [facility] Address: [address] [place] [address] Performed By: #### 2 4321-2 #### [facility] CLIA [id number] [address] [place] [address] [place] Sodium [Moles/Vol] 133 mmol/L Low 136-144 [facility] Comment on above: Order Comment: Speci men Type: BLOOD SPECIMEN Ordering Facility: [facility] Address: [address] [place] [address] Performed By: #### 2 4321-2 #### [facility] CLIA [id number] [address] [place] [address] [place] Urea nitrogen [Mass/Vol] 34 mg/dL High 9-24 [facility] Comment on above: Order Comment: Speci men Type: BLOOD SPECIMEN Ordering Facility: [facility] Address: [address] [place] [address] Performed By: #### 2 4321-2 #### [facility] CLIA [id number] [address] [place] [address] [place] PLATELET AGGREGATIONon 03-26 Platelet aggregation ADP induced 10 umol/L (PRP) [Rel units/Vol] 64 % Max Normal 58-93 [facility] Comment on above: Order Comment: Speci men Type: BLOOD SPECIMEN Ordering Facility: [facility] Address: [address] [place] [address] Performed By: #### L [id number], [id number] #### [facility] CLIA [id number] [address] [place] [address] [place] Platelet aggregation ADP induced 20 umol/mL (PRP) [Rel units/Vol] 73 % Max Normal 71-94 [facility] Comment on above: Order Comment: Speci men Type: BLOOD SPECIMEN Ordering Facility: [facility] Address: [address] [place] [address] Performed By: #### L [id number], [id number] #### [facility] CLIA [id number] [address] [place] [address] [place] Platelet aggregation ADP induced ATP secretion 10 umol/L (Bld) [Rel units/Vol] 0.8 nM Normal 0.1-1.4 [facility] Comment on above: Order Comment: Speci men Type: BLOOD SPECIMEN Ordering Facility: [facility] Address: [address] [place] [address] Performed By: #### L [id number], [id number] #### [facility] CLIA [id number] [address] [place] [address] [place] Platelet aggregation ADP induced ATP secretion 5 umol/L (Bld) [Rel units/Vol] 0.4 nM Normal 0.1-1.3 [facility] Comment on above: Order Comment: Speci men Type: BLOOD SPECIMEN Ordering Facility: [facility] Address: [address] [place] [address] Performed By: #### L [id number], [id number] #### [facility] CLIA [id number] [address] [place] [address] [place] Platelet aggregation ADP induced High dose (PRP) [Rel units/Vol] 57 % Max Low 65-93 [facility] Comment on above: Order Comment: Speci men Type: BLOOD SPECIMEN Ordering Facility: [facility] Address: [address] [place] [address] Performed By: #### L [id number], [id number] #### [facility] CLIA [id number] [address] [place] [address] [place] Platelet aggregation arachidonate induced 500 ug/mL (PRP) [Rel units/Vol] 80 % Max Normal 75-100 [facility] Comment on above: Order Comment: Speci men Type: BLOOD SPECIMEN Ordering Facility: [facility] Address: [address] [place] [address] Performed By: #### L [id number], [id number] #### [facility] CLIA [id number] [address] [place] [address] OF [place] Platelet aggregation arachidonate induced ATP secretion 500 umol/L (Bld) [Rel units/Vol] 0.7 nM Normal 0.4-2.0 [facility] Comment on above: Order Comment: Speci men Type: BLOOD SPECIMEN Ordering Facility: [facility] Address: [address] [place] [address] Performed By: #### L [id number], [id number] #### [facility] CLIA [id number] [address] [place] [address] [place] Platelet aggregation collagen induced ATP secretion 1 ug/mL (Bld) [Rel units/Vol] 0.6 nM Normal 0.4-1.7 [facility] Comment on above: Order Comment: Speci men Type: BLOOD SPECIMEN Ordering Facility: [facility] Address: [address] [place] [address] Performed By: #### L [id number], [id number] #### [facility] CLIA [id number] [address] [place] [address] [place] Platelet aggregation collagen induced Qn (Bld) 70 % Max Low 74-99 [facility] Comment on above: Order Comment: Speci men Type: BLOOD SPECIMEN Ordering Facility: [facility] Address: [address] [place] [address] Performed By: #### L [id number], [id number] #### [facility] CLIA [id number] [address] [place] [address] [place] Platelet aggregation EPINEPHrine induced (PRP) [Rel units/Vol] 73 % Max Normal 70-97 [facility] Comment on above: Order Comment: Speci men Type: BLOOD SPECIMEN Ordering Facility: [facility] Address: [address] [place] [address] Performed By: #### L [id number], [id number] #### [facility] CLIA [id number] [address] [place] [address] [place] Platelet aggregation EPINEPHrine induced 100 umol/L (PRP) [Rel units/Vol] 76 % Max Normal 70-99 [facility] Comment on above: Order Comment: Speci men Type: BLOOD SPECIMEN Ordering Facility: [facility] Address: [address] [place] [address] Performed By: #### L [id number], [id number] #### [facility] CLIA [id number] [address] [place] [address] [place] Platelet aggregation ristocetin induced 1200 ug/mL (PRP) [Rel units/Vol] 82 % Max Normal 76-100 [facility] Comment on above: Order Comment: Speci men Type: BLOOD SPECIMEN Ordering Facility: [facility] Address: [address] [place] [address] Performed By: #### L [id number], [id number] #### [facility] CLIA [id number] [address] [place] [address] [place] Platelet aggregation ristocetin induced 1500 ug/mL (PRP) [Rel units/Vol] 85 % Max Normal 76-100 [facility] Comment on above: Order Comment: Speci men Type: BLOOD SPECIMEN Ordering Facility: [facility] Address: [address] [place] [address] Performed By: #### L [id number], [id number] #### [facility] CLIA [id number] [address] [place] [address] [place] Platelet aggregation ristocetin induced 600 ug/mL (PRP) [Rel units/Vol] 4 % Max Normal 0-9 [facility] Comment on above: Order Comment: Speci men Type: BLOOD SPECIMEN Ordering Facility: [facility] Address: [address] [place] [address] Performed By: #### L [id number], [id number] #### [facility] CLIA [id number] [address] [place] [address] STATES [place] [facility] Platelet aggregation ristocetin induced 900 ug/mL (PRP) [Rel units/Vol] 75 % Max Normal 50-100 [facility] Comment on above: Order Comment: Speci men Type: BLOOD SPECIMEN Ordering Facility: [facility] Address: [address] [place] [address] Performed By: #### L [id number], [id number] #### [facility] CLIA [id number] [address] [place] [address] [place] Platelet aggregation thrombin induced ATP secretion 1 U/mL (Bld) [Rel units/Vol] 1.0 nM Normal >0.5 [facility] Comment on above: Order Comment: Alexandru campos Type: BLOOD SPECIMEN Ordering Facility: [facility] Address: [address] [place] [address] Performed By: #### L [id number], [id number] #### [facility] CLIA [id number] [address] [place] [address] [place] Platelet aggregation thrombin induced ATP secretion 5 U/mL (Bld) [Rel units/Vol] 0.4 nM Normal 0.2-1.4 [facility] Comment on above: Order Comment: Alexandru campos Type: BLOOD SPECIMEN Ordering Facility: [facility] Address: [address] [place] [address] Performed By: #### L [id number], [id number] #### [facility] CLIA [id number] [address] [place] [address] [place] PLATELET AGGREGATION INTERPo n 03-26-2025 Heparin Ab Platelet aggregation Ql (PPP) Reviewed by Edmund Lehman MD [facility] Comment on above: Order Comment: Alexandru campos Type: BLOOD SPECIMEN Ordering Facility: [facility] Address: [address] [place] [address] Performed By: #### L [id number], [id number] #### [facility] CLIA [id number] [address] [place] [address] [place] Platelet aggregation (PPP) [Interp] Normal [facility] Comment on above: Order Comment: Alexandru campos Type: BLOOD SPECIMEN Ordering Facility: [facility] Address: [address] [place] [address] Result Comment: Kassidy hardwick - see comment below. A laboratory study of platelet aggregation and stimulated granule release was performed. Based on review of a peripheral blood smear, the platelet estimate is normal and the platelet morphology is normal. PLATELET AGGREGATION: There is slightly decreased aggregation to the following tested agonists, including ADP (5 ???M) and collagen (2 ???g/ml), with normal aggregation to the remaining tested agonists, including ADP (20 ???M), arachidonic acid (0.5 mg/ml), epinephrine (10 ???M), epinephrine (100 ???M), and thromboxane A2 (3 ???M). There is normal stimulated dense granule release to the remaining tested agonists, including ADP (5 ???M), ADP (20 ???M), arachidonic acid (0.5 mg/ml), collagen (2 ???g/ml), epinephrine (10 ???M), epinephrine (100 ???M), thromboxane A2 (3 ???M), and thrombin (1 U/mL). The ristocetin-induced platelet aggregation shows a normal dose response. SUMMARY: The pattern is not indicative of a specific diagnosis, but Glanzmann thrombasthenia, Jose Soulier Disease and platelet dense granule storage pool disorder are unlikely. The mildly decreased aggregation response to low dose ADP and collagen is of doubtful significance. Please correlate these laboratory results with clinical findings and medication history. Performed By: #### L [id number], [id number] #### [facility] CLIA [id number] [address] [place] [address] [place] CNNURSEon 03-24-2025 CNNURSE Normal [facility] HISTORY PHYSICALon 5 HISTORY PHYSICAL Normal [facility] NURSING PROGon 03-24-2025 NURSING PROG Normal [facility] NURSING PROG Normal [facility] Upper GI endoscopyon 025 Upper GI endoscopy Normal [facility] NURSING PROGon 03-17-2025 NURSING PROG Normal [facility] XR Foot - left 3 [facility] Result: 3 vi ews left foot: Weight-bearing: DP, oblique, lateral: 03/12/2025: Unremarkable for acute osseous or joint pathology. Unremarkable for fracture or stress fracture changes. There are no distinct lytic or erosive changes of the distal phalanx 2nd digit. 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 [facility] Radiology Study observation (narrative) [facility] Comprehensive metabolic 2000 panelon 03-05-2025 Albumin [Mass/Vol] 4.0 g/dL Normal 3.9-4.9 [facility] Comment on above: Order Comment: Speci men Type: BLOOD SPECIMENOrdering Facility: [facility] Address: [address] [place] [address] Performed By: #### 2 4323-8 ####[facility] [id number] [place] [address] ALP [Catalytic activity/Vol] 117 U/L High 38-113 [facility] Comment on above: Order Comment: Speci men Type: BLOOD SPECIMENOrdering Facility: [facility] Address: [address] [place] [address] Performed By: #### 2 4323-8 ####[facility] [id number] [place] [address] ALT [Catalytic activity/Vol] 16 U/L Normal 10-54 [facility] Comment on above: Order Comment: Speci men Type: BLOOD SPECIMENOrdering Facility: [facility] Address: [address] [place] [address] Performed By: #### 2 4323-8 ####[facility] [id number] [place] [address] Anion gap [Moles/Vol] 10 mmol/L Normal 8-15 [facility] Comment on above: Order Comment: Speci men Type: BLOOD SPECIMENOrdering Facility: [facility] Address: [address] [place] [address] Performed By: #### 2 4323-8 ####[facility] [id number] [place] [address] AST [Catalytic activity/Vol] U/L Low 14-40 [facility] Comment on above: Order Comment: Speci men Type: BLOOD SPECIMENOrdering Facility: [facility] Address: [address] [place] [address] Performed By: #### 2 4323-8 ####[facility] [id number] [place] [address] Bilirubin [Mass/Vol] 0.6 mg/dL Normal 0.2-1.3 [facility] Comment on above: Order Comment: Speci men Type: BLOOD SPECIMENOrdering Facility: [facility] Address: [address] [place] [address] Performed By: #### 2 4323-8 ####[facility] [id number] [place] [address] Calcium [Mass/Vol] 8.7 mg/dL Normal 8.5-10.2 [facility] Comment on above: Order Comment: Speci men Type: BLOOD SPECIMENOrdering Facility: [facility] Address: [address] [place] [address] Performed By: #### 2 4323-8 ####[facility] [id number] [place] [address] Chloride [Moles/Vol] 99 mmol/L Normal 98-107 [facility] Comment on above: Order Comment: Speci men Type: BLOOD SPECIMENOrdering Facility: [facility] Address: [address] [place] [address] Performed By: #### 2 4323-8 ####[facility] [id number] [place] [address] CO2 [Moles/Vol] 23 mmol/L Normal 22-30 [facility] Comment on above: Order Comment: Speci men Type: BLOOD SPECIMENOrdering Facility: [facility] Address: [address] [place] [address] Performed By: #### 2 4323-8 ####[facility] [id number] [place] [address] Creatinine [Mass/Vol] 1.23 mg/dL High 0.73-1.22 [facility] Comment on above: Order Comment: Speci men Type: BLOOD SPECIMENOrdering Facility: [facility] Address: [address] [place] [address] Performed By: #### 2 4323-8 ####[facility] [id number] [place] [address] eGFRcr SerPlBld CKD-EPI 2020 62 mL/min/1.73m??? Normal >=60 [facility] Comment on above: Order Comment: Alexandru campos Type: BLOOD SPECIMENOrdering Facility: [facility] Address: [address] [place] [address] Result Comment: Kristel mated Glomerular Filtration Rate [...] actual GFR. Performed By: #### 2 4323-8 ####[facility] [id number] [place] [address] Glucose [Mass/Vol] 144 mg/dL High 74-99 [facility] Comment on above: Order Comment: Alexandru campos Type: BLOOD SPECIMENOrdering Facility: [facility] Address: [address] [place] [address] Result Comment: The [place] Diabetes Association (ADA) provides guidance for cutoff [...] Standards of Medical Care in Diabetes 2016, [place] Diabetes Association. Diabetes Care. 2016.39(Suppl 1). Performed By: #### 2 4323-8 ####[facility] [id number] [place] [address] Potassium [Moles/Vol] 4.9 mmol/L Normal 3.7-5.1 [facility] Comment on above: Order Comment: Speci men Type: BLOOD SPECIMENOrdering Facility: [facility] Address: [address] [place], [place] [address] Performed By: #### 2 4323-8 ####[facility] [id number] [place] [address] Protein [Mass/Vol] 6.8 g/dL Normal 6.3-8.0 [facility] Comment on above: Order Comment: Speci men Type: BLOOD SPECIMENOrdering Facility: [facility] Address: [address] [place] [address] Performed By: #### 2 4323-8 ####[facility] [id number] [place] [address] Sodium [Moles/Vol] 132 mmol/L Low 136-144 [facility] Comment on above: Order Comment: Speci men Type: BLOOD SPECIMENOrdering Facility: [facility] Address: [address] [place] [address] Performed By: #### 2 4323-8 ####[facility] [id number] [place] [address] Urea nitrogen [Mass/Vol] 22 mg/dL Normal 9-24 [facility] Comment on above: Order Comment: Speci men Type: BLOOD SPECIMENOrdering Facility: [facility] Address: [address] [place], [place] [address] Performed By: #### 2 4323-8 ####[facility] [id number] [place] [address] CNPNon 03-04-2025 CNPN Normal [facility] CNOVon 02-25-2025 CNOV Normal [facility] CNPTOUTREACHon 02-25-2025 CNPTOUTREACH Normal [facility] Laboratory - Hematology and Cell countson 02-25-2025 Hemoglobin Ql (U) Negative Negative [facility] - Urinalysison Protein Ql (U) Negative Negative mg/dL [facility] No Panel Informationon 02-25 BILIRUBIN UA (POCT) Negative Negative [facility] CLARITY UA (POCT) Clear [facility] COLOR UA (POCT) Light yellow [facility] GLUCOSE UA (POCT) Negative Negative mg/dL [facility] KETONE UA (POCT) Negative Negative mg/dL [facility] LEUKOCYTES UA (POCT) Negative [facility] NITRITE UA (POCT) Negative Negative [facility] PH UA (POCT) 7.0 4.5 - 8.0 [facility] SPECIFIC GRAVITY UA (POCT) 1.015 1.005 - 1.030 [facility] UROBILINOGEN UA (POCT) 0.2 Jolie l E.U./dL [facility] Location:[address] POINT OF CARE [facility] No Panel Informationon 02-19 IMPRESSION: Cirrhotic liver morphology. No lesion. Patent hepatic vasculature with appropriately directed flow. Small volume abdominal ascites around the liver and in right lower quadrant. Drum Handler: P[facility] Transcribe Date/Time: Feb 19 2025 1:53P Dictated by : LISBETH REBOLLAR MD This examination was interpreted and the report reviewed and electronically signed by: LONNIE ANN MD on Feb 19 2025 3:15PM [facility] DIVISION OF RADIOLOGY Radiology Study observation (narrative) [facility] No Panel InformationOrdered By: Ccf Provider on 02-19-2025 [facility] US ABD LIVER VASCULARon US ABD LIVER VASCULAR Normal [facility] US DOPPLER COMPLETEon 2024 US DOPPLER COMPLETE Normal [facility] US.doppler Abdominal vessels on 02-19-2025 * * *Final Report* * * DATE OF EXAM: Feb 19 2025 1:47PM RITA [id number] - US ABD LIVER VASCULAR / PROCEDURE REASON: Other ascites * * * * Physician Interpretation * * * * EXAMINATION: LIVER VASCULAR ULTRASOUND WITH DOPPLER IMAGING CLINICAL HISTORY: [place] liver biopsy 02/02/2025: Hepatic parenchyma with zone [...] IVC: Patent with normal, phasic wave form. DIVISION OF RADIOLOGY Provider, [facility] - 02/19/2025 * * *Final Report* * * DATE OF EXAM: Feb 19 2025 1:47PM RITA 1233 - US ABD LIVER VASCULAR / PROCEDURE REASON: Other ascites * * * * Physician Interpretation * * * * EXAMINATION: LIVER VASCULAR ULTRASOUND WITH DOPPLER IMAGING CLINICAL HISTORY: [place] liver biopsy 02/02/2025: Hepatic parenchyma with zone [...] the liver and in right lower quadrant. Drum Handler: PSCB Transcribe Date/Time: Feb 19 2025 1:53P Dictated by : LISBETH REBOLLAR MD This examination was interpreted and the report reviewed and electronically signed by: LONNIE ANN MD on Feb 19 2025 3:15PM [facility].doppler Unspecified body regionon 02-19-2025 * * *Final Report* * * DATE OF EXAM: Feb 19 2025 1:47PM RITA 1033 - US DOPPLER COMPLETE / PROCEDURE REASON: Other ascites * * * * Physician Interpretation * * * * EXAMINATION: LIVER VASCULAR ULTRASOUND WITH DOPPLER IMAGING CLINICAL HISTORY: [place] liver biopsy 02/02/2025: Hepatic parenchyma with zone [...] IVC: Patent with normal, phasic wave form. DIVISION OF RADIOLOGY Provider, Migel Valle [facility] - 02/19/2025 * * *Final Report* * * DATE OF EXAM: Feb 19 2025 1:47PM RITA 1033 - US DOPPLER COMPLETE / PROCEDURE REASON: Other ascites * * * * Physician Interpretation * * * * EXAMINATION: LIVER VASCULAR ULTRASOUND WITH DOPPLER IMAGING CLINICAL HISTORY: [place] liver biopsy 02/02/2025: Hepatic parenchyma with zone [...] the liver and in right lower quadrant. [facility] Transcribe Date/Time: Feb 19 2025 1:53P Dictated by : LISBETH REBOLLAR MD This examination was interpreted and the report reviewed and electronically signed by: LONNIE ANN MD on Feb 19 2025 3:15PM EST [facility] metabolic 2000 panelon 02-11-2025 Albumin [Mass/Vol] 4.0 g/dL Normal 3.9-4.9 [facility] Comment on above: Order Comment: Speci men Type: BLOOD SPECIMENOrdering Facility: [facility] Address: [address] [place] [address] Performed By: #### 2 4323-8 ####[facility]IA [id number] [place] [address] ALP [Catalytic activity/Vol] 106 U/L Normal 38-113 [facility] Comment on above: Order Comment: Speci men Type: BLOOD SPECIMENOrdering Facility: [facility] Address: [address] [place] [address] Performed By: #### 2 4323-8 ####[facility]IA [id number] [place] [address] ALT [Catalytic activity/Vol] 17 U/L Normal 10-54 [facility] Comment on above: Order Comment: Speci men Type: BLOOD SPECIMENOrdering Facility: [facility] Address: [address] [place] [address] Performed By: #### 2 4323-8 ####[facility] LABCLIA [id number] [place] [address] Anion gap [Moles/Vol] 12 mmol/L Normal 8-15 [facility] Comment on above: Order Comment: Speci men Type: BLOOD SPECIMENOrdering Facility: [facility] Address: [address] [place] [address] Performed By: #### 2 4323-8 ####[facility] LABCLIA [id number] [place] [address] AST [Catalytic activity/Vol] U/L Low 14-40 [facility] Comment on above: Order Comment: Speci men Type: BLOOD SPECIMENOrdering Facility: [facility] Address: [address] [place] [address] Performed By: #### 2 4323-8 ####[facility] LABCLIA [id number] [place] [address] Bilirubin [Mass/Vol] 0.5 mg/dL Normal 0.2-1.3 [facility] Comment on above: Order Comment: Speci men Type: BLOOD SPECIMENOrdering Facility: [facility] Address: [address] [place] [address] Performed By: #### 2 4323-8 ####[facility] LABCLIA [id number] [place] [address] Calcium [Mass/Vol] 9.2 mg/dL Normal 8.5-10.2 [facility] Comment on above: Order Comment: Speci men Type: BLOOD SPECIMENOrdering Facility: [facility] Address: [address] [place] [address] Performed By: #### 2 4323-8 ####[facility] LABCLIA [id number] [place] [address] Chloride [Moles/Vol] 100 mmol/L Normal 98-107 [facility] Comment on above: Order Comment: Speci men Type: BLOOD SPECIMENOrdering Facility: [facility] Address: [address] [place] [address] Performed By: #### 2 4323-8 ####[facility] LABCLIA [id number] [place] [address] CO2 [Moles/Vol] 23 mmol/L Normal 22-30 [facility] Comment on above: Order Comment: Speci men Type: BLOOD SPECIMENOrdering Facility: [facility] Address: [address] [place] [address] Performed By: #### 2 4323-8 ####[facility] LABCLIA [id number] [place] [address] Creatinine [Mass/Vol] 1.26 mg/dL High 0.73-1.22 [facility] Comment on above: Order Comment: Alexandru beth Type: BLOOD SPECIMENOrdering Facility: [facility] Address: [address] [id number] Performed By: #### 2 4323-8 ####[facility] LABCLIA [id number] [place] [address] eGFRcr SerPlBld CKD-EPI 2020 60 mL/min/1.73m??? Normal >=60 [facility] Comment on above: Order Comment: Alexandru beth Type: BLOOD SPECIMENOrdering Facility: [facility] Address: [address] [place] [address] Result Comment: Kristel mated Glomerular Filtration Rate [...] actual GFR. Performed By: #### 2 4323-8 ####[facility] LABCLIA [id number] [place] [address] Glucose [Mass/Vol] 144 mg/dL High 74-99 [facility] Comment on above: Order Comment: Antonellasyl campos Type: BLOOD SPECIMENOrdering Facility: [facility] Address: [address] [id number] Result Comment: The [place] Diabetes Association (ADA) provides guidance for cutoff [...] Standards of Medical Care in Diabetes 2016, [place] Diabetes Association. Diabetes Care. 2016.39(Suppl 1). Performed By: #### 2 4323-8 ####[facility] LABCLIA [id number] [place] [address] Potassium [Moles/Vol] 4.2 mmol/L Normal 3.7-5.1 [facility] Comment on above: Order Comment: Speci men Type: BLOOD SPECIMENOrdering Facility: [facility] Address: [address] [place] [address] Performed By: #### 2 4323-8 ####[facility] LABCLIA [id number] [place] [address] Protein [Mass/Vol] 6.8 g/dL Normal 6.3-8.0 [facility] Comment on above: Order Comment: Speci men Type: BLOOD SPECIMENOrdering Facility: [facility] Address: [address] [place] [address] Performed By: #### 2 4323-8 ####[facility] LABIA [id number] [place] [address] Sodium [Moles/Vol] 135 mmol/L Low 136-144 [facility] Comment on above: Order Comment: Speci men Type: BLOOD SPECIMENOrdering Facility: [facility] Address: [address] [place] [address] Performed By: #### 2 4323-8 ####[facility] LABCLIA [id number] [place] [address] Urea nitrogen [Mass/Vol] 27 mg/dL High 9-24 [facility] Comment on above: Order Comment: Speci men Type: BLOOD SPECIMENOrdering Facility: [facility] Address: [address] [place] [address] Performed By: #### 2 4323-8 ####[facility] LABIA [id number] [place] [address] BRIEF OP NOTon 02-02-2025 BRIEF OP NOT Normal [facility] HISTORY PHYSICALon HISTORY PHYSICAL Normal [facility] IR TRANSJUG LIVER BX W/PRESS on 02-02-2025 IR TRANSJUG LIVER BX W/PRESS Normal [facility] NURSING PROGon 02-02-2025 NURSING PROG Normal [facility] PT EDon 02-02-2025 PT ED Normal [facility] Pathology biopsy report Abhijit (Tiss)on 02-02-2025 AP DISCLAIMER Normal [facility] Comment on above: Order Comment: Speci men Type: TISSUE SPECIMENOrdering Facility: [facility] Address: [address] [place] [address] Result Comment: Haley dominguez Developed Test (LDT) Disclaimer:Performance characteristics of immunohistochemical, immunofluorescent, and chromogenic in-situ hybridization tests have been determined by the performing laboratory within [facility]'s [facility] Pathology and Laboratory Medicine Department ([facility], [facility], [facility], [facility], [facility], [facility], or [facility]) in a manner consistent with CLIA requirements. One or more of these tests may not have been cleared or approved by the FDA. [facility] is regulated under CLIA as qualified to perform high-complexity testing. These tests are used for clinical purposes. These should not be regarded as investigational or for research. Positive and negative controls stain appropriately. Performed By: #### 6 6121-5 ####[facility] LABCLIA [id number] [address] STATES OF [facility] LABORATORYCLIA [id number] [address] STATES OF CINDY CASE REPORT Normal [facility] Comment on above: Order Comment: Speci men Type: TISSUE SPECIMENOrdering Facility: [facility] Address: [address] [place] [address] Result Comment: Surg ica Pathology Report Case: [id number] Provider: Isaiah Murry MD Collected: 02/02/2025 10:11 AMOrdering Location: [place] [address] Received: 02/02/2025 03:49 PMPathologist: Huber, Lucy, MDSpecimen: Liver, Biopsy Performed By: #### 6 6121-5 ####[facility] LABCLIA [id number] [address] LABORATORYCLIA [id number] [address] CLINICAL HISTORY elevated ALP [facility] Comment on above: Order Comment: Speci men Type: TISSUE SPECIMENOrdering Facility: [facility] Address: [address] [place] [address] Performed By: #### 6 6121-5 ####[facility] LABCLIA [id number] [address] LABORATORYCLIA [id number] [address] DIAGNOSIS COMMENT Normal [facility] Comment on above: Order Comment: Speci men Type: TISSUE SPECIMENOrdering Facility: [facility] Address: [address] [place] [address] Result Comment: The histologic examination shows 2 cores of liver parenchyma exhibiting adequate number of portal tracts for histologic evaluation. Portal tracts exhibit minimal mixed inflammation composed of predominantly lymphocytes admixed with rare plasma cells and eosinophils. [place] bile ducts are identified along with bile ductular proliferation. Portal vein branches appear angulated and dilated. Areas of hepatocyte dropout are identified along with rare plasma cells, ceroid laden macrophages and lymphocytes. Hepatocytes with glycogenated nuclei are identified. There is no evidence of interface activity, significant steatosis, ballooned hepatocytes, or Ivette Denk bodies.Trichrome stain highlights portal, periportal, and pericellular fibrosis. PASD stain shows no evidence of PAS-D positive intracytoplasmic globules. PASD stain highlights scattered ceroid laden macrophages. Iron stain shows no definite iron deposition within Kupffer cells or hepatocytes (score 0 of 4+). CK7 highlights [place] bile ducts as well as biliary metaplasia. Copper shows no evidence of copper deposition within hepatocytes. Reticulin stain highlights zone 3 hepatocyte atrophy. CMV stain is negative for Cytomegaloviral inclusions.The overall features are suggestive of underlying vascular flow (inflow/outflow) abnormality with pericellular fibrosis. The possible etiologies include cardiac abnormality, hepatic vascular abnormality, or underlying renal pathology etc. Correlation with clinical findings and imaging is strongly recommended.This case was reviewed in consultation with my colleague Dr. Orion Menard, who agrees with the diagnostic interpretation. Performed By: #### 6 6121-5 ####[facility] LABCLIA [id number] [address] LABORATORYCLIA [id number] [address] FINAL DIAGNOSIS Normal [facility] Comment on above: Order Comment: Speci men Type: TISSUE SPECIMENOrdering Facility: [facility] Address: [address] [place] [address] Result Comment: sallie Bowles, biopsy:- Hepatic parenchyma with zone 3 patchy sinusoidal dilatation, patchy dilated/angulated portal vein branches, and pericellular fibrosis.- See comment. at 1452 EDT Performed By: #### 6 6121-5 ####[facility] LABCLIA [id number] [address] LABORATORYCLIA [id number] [address] FINAL PERFORMING LAB Normal [facility] Comment on above: Order Comment: Speci men Type: TISSUE SPECIMENOrdering Facility: [facility] Address: [address] [place] [address] Result Comment: Diag nostic interpretation performed at: [facility], [address] [place], [place] [address] CLIA# [id number] Director: Ramos Strickland MD Performed By: #### 6 6121-5 ####[facility] LABCLIA [id number] [place] [id number] [facility] LABORATORYCLIA [id number] [place], [place] [address] [place] [address] OF [facility] GROSS DESCRIPTION Normal [facility] Comment on above: Order Comment: Speci men Type: TISSUE SPECIMENOrdering Facility: [facility] Address: [address] [place] [address] Result Comment: A. Becky caleber, BiopsyReceived in formalin are two segments of cylindrical tissue aggregating to 1.5 x 0.2 x 0.1 cm, brown and of a soft and friable consistency. Totally submitted in one cassette.[facility] February 02, 2025 8:03 PMGross examination performed at [facility], [address] [place] [address] Performed By: #### 6 6121-5 ####[facility] LABCLIA [id number] [address] LABORATORYCLIA [id number] [address] OF [facility] NURSING PROGon 01-26-2025 NURSING PROG Normal [facility] Basic metabolic 2000 panelOr dered By: Sudha Granger on 01-25-2025 Anion gap [Moles/Vol] 13 mmol/L 8 - 15 mmol/L [facility] Calcium [Mass/Vol] 9.8 mg/dL 8.5 - 10. 2 mg/dL [facility] Chloride [Moles/Vol] 97 mmol/L Low 98 - 10 7 mmol/L [facility] CO2 [Moles/Vol] 25 mmol/L 22 - 30 mmol/L [facility] Creatinine [Mass/Vol] 1.55 mg/dL High 0.73 - 1.22 mg/dL [facility] GFR/1.73 sq M.predicted among non-blacks MDRD (S/P/Bld) [Vol rate/Area] 47 mL/min/{1.73_m2} Low - PINF [facility] Comment on above: Estimated Glomerular Filtration Rate [...] not accurately reflect actual GFR. Glucose [Mass/Vol] 141 mg/dL High 74 - 99 mg/dL [facility] Comment on above: The [place] Diabete s Association (ADA) provides guidance for [...] Standards of Medical Care in Diabetes 2016, [place] Diabetes Association. Diabetes Care. 2016.39(Suppl 1). Interpretation and review of laboratory results Abnormal [facility] Potassium [Moles/Vol] 3.7 mmol/L 3.7 - 5.1 mmol/L [facility] Sodium [Moles/Vol] 135 mmol/L Low 136 - 144 mmol/L [facility] Urea nitrogen [Mass/Vol] 56 mg/dL High 9 - 24 mg/dL [facility] Basic metabolic 2000 panelon 01-25-2025 Anion gap [Moles/Vol] 13 mmol/L Normal 8-15 [facility] Comment on above: Order Comment: Speci men Type: BLOOD SPECIMENOrdering Facility: [facility] Address: [address] [place] [address] Performed By: #### 1 9123-9, 14469-8 ####[facility] LABCLIA [id number] [place] [address] Calcium [Mass/Vol] 9.8 mg/dL Normal 8.5-10.2 [facility] Comment on above: Order Comment: Speci men Type: BLOOD SPECIMENOrdering Facility: [facility] Address: [address] [place] [address] Performed By: #### 1 9123-9, 81616-5 ####[facility] LABCLIA [id number] [place] [address] Chloride [Moles/Vol] 97 mmol/L Low 98-107 [facility] Comment on above: Order Comment: Speci men Type: BLOOD SPECIMENOrdering Facility: [facility] Address: [address] [place], [place] [address] Performed By: #### 1 9123-9, 89587-3 ####[facility] LABCLIA [id number] [place] [address] CO2 [Moles/Vol] 25 mmol/L Normal 22-30 [facility] Comment on above: Order Comment: Speci men Type: BLOOD SPECIMENOrdering Facility: [facility] Address: [address] [place] [address] Performed By: #### 1 91239, 32874-7 ####[facility] LABCLIA [id number] [place] [address] Creatinine [Mass/Vol] 1.55 mg/dL High 0.73-1.22 [facility] Comment on above: Order Comment: Speci men Type: BLOOD SPECIMENOrdering Facility: [facility] Address: [address] [place] [address] Performed By: #### 1 9123-9, 61041-3 ####[facility] LABIA [id number] [place] [address] eGFRcr SerPlBld CKD-EPI 2020 47 mL/min/1.73m??? Low >=60 [facility] Comment on above: Order Comment: Speci men Type: BLOOD SPECIMENOrdering Facility: [facility] Address: [address] [place], [place] [address] Result Comment: Kristel mated Glomerular Filtration Rate [...] actual GFR. Performed By: #### 1 9123-9, 82275-5 ####[facility] LABCLIA [id number] [place] [address] Glucose [Mass/Vol] 141 mg/dL High 74-99 [facility] Comment on above: Order Comment: Speci men Type: BLOOD SPECIMENOrdering Facility: [facility] Address: [address] [place], [place] [address] Result Comment: The [place] Diabetes Association (ADA) provides guidance for cutoff [...] Standards of Medical Care in Diabetes 2016, [place] Diabetes Association. Diabetes Care. 2016.39(Suppl 1). Performed By: #### 1 9123-9, 36475-3 ####[facility] LABCLIA [id number] [place] [address] Potassium [Moles/Vol] 3.7 mmol/L Normal 3.7-5.1 [facility] Comment on above: Order Comment: Speci men Type: BLOOD SPECIMENOrdering Facility: [facility] Address: [address] [place], [place] [address] Performed By: #### 1 9123-9, 14467-0 ####[facility] LABCLIA [id number] [place] [address] Sodium [Moles/Vol] 135 mmol/L Low 136-144 [facility] Comment on above: Order Comment: Speci men Type: BLOOD SPECIMENOrdering Facility: [facility] Address: [address] [place] [address] Performed By: #### 1 9123-9, 15481-2 ####[facility] LABCLIA [id number] [place] [address] Urea nitrogen [Mass/Vol] 56 mg/dL High 9-24 [facility] Comment on above: Order Comment: Speci men Type: BLOOD SPECIMENOrdering Facility: [facility] Address: [address] [place] [address] Performed By: #### 1 9123-9, 44110-7 ####[facility] LABCLIA [id number] [place] [address] CBC panel Auto (Bld)on 01-25 Erythrocyte distribution width (RBC) [Ratio] 14.7 % 11.5 - 15.0 % [facility] Hematocrit (Bld) [Volume fraction] 37.9 % Low 39.0 - 51.0 % [facility] Hemoglobin (Bld) [Mass/Vol] 12.2 g/dL Low 13.0 - 17.0 g/dL [facility] Interpretation and review of laboratory results Abnormal [facility] MCH (RBC) [Entitic mass] 32.5 pg 26.0 - 34.0 pg [facility] MCHC (RBC) [Mass/Vol] 32.2 g/dL 30.5 - 36.0 g/dL [facility] MCV (RBC) [Entitic vol] 101.1 fL High 80.0 - 100.0 fL [facility] Nucleated RBC (Bld) [#/Vol] NINF [facility] Platelet mean volume (Bld) [Entitic vol] 9.8 fL 9.0 - 12.7 fL [facility] Platelets (Bld) [#/Vol] 197 10*3/uL [facility] RBC (Bld) [#/Vol] 3.75 10*6/uL Low 4.20 - 6.0 0 m/uL [facility] WBC (Bld) [#/Vol] 8.05 10*3/uL [facility] Erythrocyte distribution width (RBC) [Ratio] 14.7 % Normal 11.5-15.0 [facility] Comment on above: Order Comment: Speci men Type: BLOOD SPECIMENOrdering Facility: [facility] Address: [address] [place] [address] Performed By: #### 5 8410-2 ####[facility] LABCLIA [id number] [place] [address] Hematocrit (Bld) [Volume fraction] 37.9 % Low 39.0-51.0 [facility] Comment on above: Order Comment: Speci men Type: BLOOD SPECIMENOrdering Facility: [facility] Address: [address] [place] [address] Performed By: #### 5 8410-2 ####[facility] LABCLIA [id number] [place] [address] Hemoglobin (Bld) [Mass/Vol] 12.2 g/dL Low 13.0-17.0 [facility] Comment on above: Order Comment: Speci men Type: BLOOD SPECIMENOrdering Facility: [facility] Address: [address] [place] [address] Performed By: #### 5 8410-2 ####[facility] LABIA [id number] [place] [address] MCH (RBC) [Entitic mass] 32.5 pg Normal 26.0-34.0 [facility] Comment on above: Order Comment: Speci men Type: BLOOD SPECIMENOrdering Facility: [facility] Address: [address] [place] [address] Performed By: #### 5 8410-2 ####[facility] LABCLIA [id number] [place] [address] MCHC (RBC) [Mass/Vol] 32.2 g/dL Normal 30.5-36.0 [facility] Comment on above: Order Comment: Speci men Type: BLOOD SPECIMENOrdering Facility: [facility] Address: [address] [place] [address] Performed By: #### 5 8410-2 ####[facility] LABIA [id number] [place] [address] MCV (RBC) [Entitic vol] 101.1 fL High 80.0-100.0 [facility] Comment on above: Order Comment: Speci men Type: BLOOD SPECIMENOrdering Facility: [facility] Address: [address] [place] [address] Performed By: #### 5 8410-2 ####[facility] LABCLIA [id number] [place] [address] Nucleated RBC (Bld) [#/Vol] 10*3/uL Normal <0.01 [facility] Comment on above: Order Comment: Speci men Type: BLOOD SPECIMENOrdering Facility: [facility] Address: [address] [place] [address] Performed By: #### 5 8410-2 ####[facility] LABCLIA [id number] [place] [address] Platelet mean volume (Bld) [Entitic vol] 9.8 fL Normal 9.0-12.7 [facility] Comment on above: Order Comment: Speci men Type: BLOOD SPECIMENOrdering Facility: [facility] Address: [address] [place] [address] Performed By: #### 5 8410-2 ####[facility] LABCLIA [id number] [place] [address] Platelets (Bld) [#/Vol] 197 10*3/uL Normal 150-400 [facility] Comment on above: Order Comment: Speci men Type: BLOOD SPECIMENOrdering Facility: [facility] Address: [address] [place] [address] Performed By: #### 5 8410-2 ####[facility] LABCLIA [id number] [place] [address] RBC (Bld) [#/Vol] 3.75 10*6/uL Low 4.20-6.00 [facility] Comment on above: Order Comment: Speci men Type: BLOOD SPECIMENOrdering Facility: [facility] Address: [address] [place] [address] Performed By: #### 5 8410-2 ####[facility] LABCLIA [id number] [place] [address] WBC (Bld) [#/Vol] 8.05 10*3/uL Normal 3.70-11.00 [facility] Comment on above: Order Comment: Speci men Type: BLOOD SPECIMENOrdering Facility: [facility] Address: [address] [place] [address] Performed By: #### 5 8410-2 ####[facility] LABCLIA [id number] [place] [address] MAGNESIUMon 01-25-2025 Magnesium [Mass/Vol] 2.2 mg/dL 1.7 - 2 .3 mg/dL [facility] Magnesium SerPl-mCncon 01-25 Magnesium [Mass/Vol] 2.2 mg/dL Normal 1.7-2.3 [facility] Comment on above: Order Comment: Speci men Type: BLOOD SPECIMENOrdering Facility: [facility] Address: [address] [place] [address] Performed By: #### 1 9123-9, 46331-6 ####[facility] LABCLIA [id number] [place] [address] Magnesium [Mass/Vol]on 01-25 Interpretation and review of laboratory results Normal [facility] CNOVon 01-11-2025 CNOV Normal [facility] A1AT SerPl-mCncon 01-08-2025 Alpha 1 antitrypsin [Mass/Vol] 167 mg/dL Normal 90-200 [facility] Comment on above: Order Comment: Speci men Type: BLOOD SPECIMENOrdering Facility: [facility] Address: [address] [place] [address] Performed By: #### 5 0190-8, 1825-9, 2324-2, 2276-4 ####[facility] [facility]CLIA [id number] [place] [address] [place] GREY BY IFA WITH REFLEXon Nuclear Ab Ql (S) Negative Normal Negative [facility] Comment on above: Order Comment: Speci men Type: BLOOD SPECIMENOrdering Facility: [facility] Address: [address] [place] [address] Result Comment: Anti -nuclear antibody test is used as an aid in diagnosis of systemic autoimmune diseases. Where positive and clinically warranted, follow-up using disease-specific testing is recommended. Low positive titers are not uncommon with advanced age, certain chronic infections, and malignancies among others.Test methodology: Indirect fluorescence immunoassay (IFA) using HEp-2 cells. Performed By: #### A NAIFR ####[facility] LABCLIA [id number] [address] OF [facility] CBC panel Auto (Bld)on 01-08 Erythrocyte distribution width (RBC) [Ratio] 15.8 % High 11.5-15.0 [facility] Comment on above: Order Comment: Alexandru campos Type: BLOOD SPECIMENOrdering Facility: [facility] Address: [address] [place] [address] Performed By: #### 5 8410-2 ####[facility] LABCLIA [id number] [place] [address] Hematocrit (Bld) [Volume fraction] 37.0 % Low 39.0-51.0 [facility] Comment on above: Order Comment: Antonellai beth Type: BLOOD SPECIMENOrdering Facility: [facility] Address: [address] [place] [address] Performed By: #### 5 8410-2 ####[facility] LABCLIA [id number] [place] [address] Hemoglobin (Bld) [Mass/Vol] 11.7 g/dL Low 13.0-17.0 [facility] Comment on above: Order Comment: Antonellai men Type: BLOOD SPECIMENOrdering Facility: [facility] Address: [address] [place] [address] Performed By: #### 5 8410-2 ####[facility] LABCLIA [id number] [place] [address] MCH (RBC) [Entitic mass] 32.7 pg Normal 26.0-34.0 [facility] Comment on above: Order Comment: Speci men Type: BLOOD SPECIMENOrdering Facility: [facility] Address: [address] [place] [address] Performed By: #### 5 8410-2 ####[facility] LABCLIA [id number] [place] [address] MCHC (RBC) [Mass/Vol] 31.6 g/dL Normal 30.5-36.0 [facility] Comment on above: Order Comment: Speci men Type: BLOOD SPECIMENOrdering Facility: [facility] Address: [address] [place] [address] Performed By: #### 5 8410-2 ####[facility] LABCLIA [id number] [place] [address] MCV (RBC) [Entitic vol] 103.4 fL High 80.0-100.0 [facility] Comment on above: Order Comment: Speci men Type: BLOOD SPECIMENOrdering Facility: [facility] Address: [address] [place] [address] Performed By: #### 5 8410-2 ####[facility] LABCLIA [id number] [place] [address] Nucleated RBC (Bld) [#/Vol] 10*3/uL Normal <0.01 [facility] Comment on above: Order Comment: Speci men Type: BLOOD SPECIMENOrdering Facility: [facility] Address: [address] [place] [address] Performed By: #### 5 8410-2 ####[facility] LABIA [id number] [place] [address] Platelet mean volume (Bld) [Entitic vol] 9.7 fL Normal 9.0-12.7 [facility] Comment on above: Order Comment: Speci men Type: BLOOD SPECIMENOrdering Facility: [facility] Address: [address] [place] [address] Performed By: #### 5 8410-2 ####[facility] LABCLIA [id number] [place] [address] Platelets (Bld) [#/Vol] 228 10*3/uL Normal 150-400 [facility] Comment on above: Order Comment: Speci men Type: BLOOD SPECIMENOrdering Facility: [facility] Address: [address] [place] [address] Performed By: #### 5 8410-2 ####[facility] LABCLIA [id number] [place] [address] RBC (Bld) [#/Vol] 3.58 10*6/uL Low 4.20-6.00 [facility] Comment on above: Order Comment: Speci men Type: BLOOD SPECIMENOrdering Facility: [facility] Address: [address] [place] [address] Performed By: #### 5 8410-2 ####[facility] LABCLIA [id number] [place] [address] WBC (Bld) [#/Vol] 9.63 10*3/uL Normal 3.70-11.00 [facility] Comment on above: Order Comment: Speci men Type: BLOOD SPECIMENOrdering Facility: [facility] Address: [address] [place] [address] Performed By: #### 5 8410-2 ####[facility] LABCLIA [id number] [place] [address] CMV IgM Qnon 01-08-2025 CMV IGM, QUAL Positive Abnormal Negative [facility] Comment on above: Order Comment: Speci men Type: BLOOD SPECIMENOrdering Facility: [facility] Address: [address] [place] [address] Result Comment: The result suggests recent infection with Cytomegalovirus (CMV) or recent CMV reactivation. CMV IgM levels may remain elevated for extended periods after a primary infection. Clinical correlation is required. Performed By: #### 7 853-5 ####[facility] LABCLIA [id number] [facility]ENTER[facility] [place] [id number] [place] Comprehensive metabolic 2000 panelon 01-08-2025 Albumin [Mass/Vol] 4.1 g/dL Normal 3.9-4.9 [facility] Comment on above: Order Comment: Speci men Type: BLOOD SPECIMENOrdering Facility: [facility] Address: [address] [place] [address] Performed By: #### 2 4323-8 ####[facility] LABCLIA [id number] [place] [address] ALP [Catalytic activity/Vol] 92 U/L Normal 38-113 [facility] Comment on above: Order Comment: Speci men Type: BLOOD SPECIMENOrdering Facility: [facility] Address: [address] [place] [address] Performed By: #### 2 4323-8 ####[facility] LABCLIA [id number] [place] [address] ALT [Catalytic activity/Vol] 18 U/L Normal 10-54 [facility] Comment on above: Order Comment: Speci men Type: BLOOD SPECIMENOrdering Facility: [facility] Address: [address] [place] [address] Performed By: #### 2 4323-8 ####[facility] LABCLIA [id number] [place] [address] Anion gap [Moles/Vol] 8 mmol/L Normal 8-15 [facility] Comment on above: Order Comment: Speci men Type: BLOOD SPECIMENOrdering Facility: [facility] Address: [address] [place] [address] Performed By: #### 2 4323-8 ####[facility] LABCLIA [id number] [place] [address] AST [Catalytic activity/Vol] 5 U/L Low 14-40 [facility] Comment on above: Order Comment: Speci men Type: BLOOD SPECIMENOrdering Facility: [facility] Address: [address] [place] [address] Performed By: #### 2 4323-8 ####[facility] LABCLIA [id number] [place] [address] Bilirubin [Mass/Vol] 0.6 mg/dL Normal 0.2-1.3 [facility] Comment on above: Order Comment: Speci men Type: BLOOD SPECIMENOrdering Facility: [facility] Address: [address] [place] [address] Performed By: #### 2 4323-8 ####[facility] LABCLIA [id number] [place] [address] Calcium [Mass/Vol] 9.2 mg/dL Normal 8.5-10.2 [facility] Comment on above: Order Comment: Speci men Type: BLOOD SPECIMENOrdering Facility: [facility] Address: [address] [place] [address] Performed By: #### 2 4323-8 ####[facility] LABCLIA [id number] [place] [address] Chloride [Moles/Vol] 101 mmol/L Normal 98-107 [facility] Comment on above: Order Comment: Speci men Type: BLOOD SPECIMENOrdering Facility: [facility] Address: [address] [place] [address] Performed By: #### 2 4323-8 ####[facility] LABCLIA [id number] [place] [address] CO2 [Moles/Vol] 29 mmol/L Normal 22-30 [facility] Comment on above: Order Comment: Speci men Type: BLOOD SPECIMENOrdering Facility: [facility] Address: [address] [place] [address] Performed By: #### 2 4323-8 ####[facility] LABCLIA [id number] [place] [address] Creatinine [Mass/Vol] 1.46 mg/dL High 0.73-1.22 [facility] Comment on above: Order Comment: Alexandru beth Type: BLOOD SPECIMENOrdering Facility: [facility] Address: [address] [place] [address] Performed By: #### 2 4323-8 ####[facility] LABCLIA [id number] [place] [address] eGFRcr SerPlBld CKD-EPI 2020 50 mL/min/1.73m??? Low >=60 [facility] Comment on above: Order Comment: Antonellasyl campos Type: BLOOD SPECIMENOrdering Facility: [facility] Address: [address] [place] [id number] Result Comment: Kristel mated Glomerular Filtration Rate [...] actual GFR. Performed By: #### 2 4323-8 ####[facility] LABCLIA [id number] [place] [address] Glucose [Mass/Vol] 116 mg/dL High 74-99 [facility] Comment on above: Order Comment: Antonellasyl campos Type: BLOOD SPECIMENOrdering Facility: [facility] Address: [address] [place], [place] [address] Result Comment: The [employer] Diabetes Association (ADA) provides guidance for cutoff [...] Standards of Medical Care in Diabetes 2016, [place] Diabetes [employer]. Diabetes Care. 2016.39(Suppl 1). Performed By: #### 2 4323-8 ####[facility] LABCLIA [id number] [place] [address] Potassium [Moles/Vol] 3.9 mmol/L Normal 3.7-5.1 [facility] Comment on above: Order Comment: Speci men Type: BLOOD SPECIMENOrdering Facility: [facility] Address: [address] [place] [address] Performed By: #### 2 4323-8 ####[facility] LABCLIA [id number] [place] [address] Protein [Mass/Vol] 7.4 g/dL Normal 6.3-8.0 [facility] Comment on above: Order Comment: Speci men Type: BLOOD SPECIMENOrdering Facility: [facility] Address: [address] [place] [address] Performed By: #### 2 4323-8 ####[facility] LABCLIA [id number] [place] [address] Sodium [Moles/Vol] 138 mmol/L Normal 136-144 [facility] Comment on above: Order Comment: Speci men Type: BLOOD SPECIMENOrdering Facility: [facility] Address: [address] [place] [address] Performed By: #### 2 4323-8 ####[facility] LABCLIA [id number] [place] [address] Urea nitrogen [Mass/Vol] 56 mg/dL High 9-24 [facility] Comment on above: Order Comment: Speci men Type: BLOOD SPECIMENOrdering Facility: [facility] Address: [address] [place] [address] Performed By: #### 2 4323-8 ####[facility] LABIA [id number] [place] [address] [facility] Ferritin [Mass/Vol] 71.9 ng/mL Normal 30.3-565.7 [facility] Comment on above: Order Comment: Speci men Type: BLOOD SPECIMENOrdering Facility: [facility] Address: [address] [place] [address] Performed By: #### 5 0190-8, 1825-9, 2324-2, 2276-4 ####[facility] LABIA [id number] [place] [address] [place] GGT SerPl-cCncon 01-08-2025 Gamma glutamyl transferase [Catalytic activity/Vol] 123 U/L High 10-70 [facility] Comment on above: Order Comment: Alexandru campos Type: BLOOD SPECIMENOrdering Facility: [facility] Address: [address] [place] [address] Performed By: #### 5 0190-8, 1825-9, 2324-2, 6-4 ####[facility] LABIA [id number] [place] [address] [place] HBV core Ab Ser Qlon 025 HBV core Ab Ql (S) Negative Normal Negative [facility] Comment on above: Order Comment: Antonellai beth Type: BLOOD SPECIMENOrdering Facility: [facility] Address: [address] [place] [address] Result Comment: No e vidence of current or past infection with Hepatitis B virus. Should recent infection be suspected, repeat testing may be considered 3-4 weeks after this draw. Performed By: #### 1 6933-4, 84377-0, 5195-3 ####[facility] LABIA [id number] [place] [address] [place] HBV surface Ab Ql (S)on 12-16 HBV surface Ab Qn (S) <8.00 Normal [facility] Comment on above: Order Comment: Speci beth Type: BLOOD SPECIMENOrdering Facility: [facility] Address: [address], [place] [address] Result Comment: <8 m IU/mL: No serological evidence of immunity to Hepatitis B Virus.>/= 8 to <12 mIU/mL: No serological evidence of immunity to Hepatitis B Virus.>/= 12 mIU/mL: Consistent with serological evidence of immunity to Hepatitis B Virus. Performed By: #### 1 6933-4, 36213-2, 5194-3 ####[facility] LABCLIA [id number] [place] [address] [place] HBV surface Ab Ser Qlon 12-16 HBV surface Ab Ql (S) Negative Normal [facility] Comment on above: Order Comment: Speci men Type: BLOOD SPECIMENOrdering Facility: [facility] Address: [address] [place] [address] Result Comment: No s erological evidence of immunity to Hepatitis B Virus. Performed By: #### 1 6933-4, 69476-4, 5194-3 ####[facility] LABCLIA [id number] [address] [place] HBV surface Ag Ser Qlon 12-16 HBV surface Ag Ql (S) Negative Normal Negative [facility] Comment on above: Order Comment: Antonellai men Type: BLOOD SPECIMENOrdering Facility: [facility] Address: [address] [place] [address] Performed By: #### 1 6933-4, 43085-4, 5194-3 ####[facility] LABCLIA [id number] [address] [place] HCV Ab Ser Qlon 01-08-2025 HCV Ab Ql (S) Negative Normal Negative [facility] Comment on above: Order Comment: Speci men Type: BLOOD SPECIMENOrdering Facility: [facility] Address: [address] [place] [address] Result Comment: The result suggests no evidence of infection with Hepatitis C virus. Should recent infection be suspected, repeat testing may be considered 4-6 weeks after this draw. Performed By: #### 1 6128-1 ####[facility] LABCLIA [id number] [place] [id number] [place] Iron and Iron binding capaci ty panelon 01-08-2025 Iron [Mass/Vol] 63 ug/dL Normal 41-186 [facility] Comment on above: Order Comment: Speci men Type: BLOOD SPECIMENOrdering Facility: [facility] Address: [address] [place] [address] Performed By: #### 5 0190-8, 1825-9, 4-2, 6-4 ####[facility] LABIA [id number] [place] [address] [place] Iron binding capacity [Mass/Vol] 379 ug/dL Normal 232-386 [facility] Comment on above: Order Comment: Speci men Type: BLOOD SPECIMENOrdering Facility: [facility] Address: [address] [place] [address] Performed By: #### 5 0190-8, 182-9, 4-2, 6-4 ####[facility] [id number] [place] [address] [place] Iron/TIBC [Molar ratio] 16.6 % Normal 15.0-57.0 [facility] Comment on above: Order Comment: Speci men Type: BLOOD SPECIMENOrdering Facility: [facility] Address: [address] [place] [address] Performed By: #### 5 0190-8, 1825-9, 4-2, 6-4 ####[facility] LABIA [id number] [place] [id number] [place] LIVER-KIDNEY MICROSOME ANTIB OLGA, IGGon 01-08-2025 LIVER-KIDNEY MICROSOMAL ABS <1:20 Normal <1:20 [facility] Comment on above: Order Comment: Speci men Type: BLOOD SPECIMENOrdering Facility: [facility] Address: [address] [place] [address] Result Comment: INTE RPRETIVE INFORMATION: Wryfc-Kgmkmn-Twfpzdpuh Abs, IgGLiver-Kidney Microsome IgG antibody (anti-LKM), as detected byindirect immunofluorescent antibody (IFA) techniques, may beobserved in patients with autoimmune hepatitis type 2 (AIH-2),AIH-2 associated with ooswxjeqgtcwufcxzxxzwvlpcclx-zgnwliguawv-rpntivvkgn dystrophy (APECED),viral hepatitis C or D, and some forms of drug-induced hepatitis.This IFA does not differentiate among the four types of LKMantibodies (LKM-1, LKM-2, LKM-3, and a fourth type that faxlhyuzawHII3Q0 and CY antigens). Of these, anti-LKM-1 (ztfyrphikcD222UQP8) IgG antibodies are considered specific for AIH-2.This test was developed and its performance characteristicsdetermined by [facility]. It has not been cleared orapproved by the [place] Food and Drug Administration. This test wasperformed in a CLIA certified laboratory and is intended forclinical purposes.Performed By: [facility] [place] [id number] Director: Anne-Marie Correa MD, PhDCLIA Number: [id number] Performed By: #### L KM ####[facility] [id number] [place] [address] Mitochondria Ab IF Ql (S)on 01-08-2025 Mitochondria M2 Ab IA Qn (S) 4.9 Units Normal <=20.0 [facility] Comment on above: Order Comment: Alexandru campos Type: BLOOD SPECIMENOrdering Facility: [facility] Address: [address] [place] [address] Performed By: #### 1 4252-1, 67422-4 ####[facility] LABCLIA [id number] [address] [place] Mitochondria M2 Ab Ql (S) Negative Normal Negative [facility] Comment on above: Order Comment: Alexandru campos Type: BLOOD SPECIMENOrdering Facility: [facility] Address: [address] [place] [address] Result Comment: Anti -mitochondrial antibody test is used as an aid in diagnosis of primary biliary cholangitis. Clinical correlation is required. Performed By: #### 1 4252-1, 71471-0 ####[facility] LABIA [id number] [place] [address] [place] PT panel Coag (PPP)on 2024 INR Coag (PPP) [Relative time] 1.1 {INR} Normal 0.9-1.3 [facility] Comment on above: Order Comment: Alexandru campos Type: BLOOD SPECIMENOrdering Facility: [facility] Address: [address] [place] [address] Result Comment: Elsa min K Antagonist (VKA) Therapeutic Range: INR 2 to 3 (Target INR of 2.5)Note: For patients treated with VKA drugs, such as warfarin, the [employer] 2012 Guideline recommends [...] 2.5 to 3.5 (target INR of 3).Camilla COHEN, et al. Chest 2012, 141:7S-47SSimone RA, et al. [facility] 2017, 70: 252-289 Performed By: #### 3 4528-0 ####[facility] LABIA [id number] [place] [id number] [place] PT Coag (PPP) [Time] 12.2 s Normal 9.7-13.0 [facility] Comment on above: Order Comment: Alexandru campos Type: BLOOD SPECIMENOrdering Facility: [facility] Address: [address] [place] [address] Performed By: #### 3 4528-0 ####[facility] LABIA [id number] [place] [address] [place] Smooth muscle Ab Ql (S)on ACTIN SMOOTH MUSCLE IGG QUALITATIVE Negative Normal Negative [facility] Comment on above: Order Comment: Speci men Type: BLOOD SPECIMENOrdering Facility: [facility] Address: [address] [place] [address] Performed By: #### 1 4252-1, 54112-4 ####[facility] LABCLIA [id number] [place] [address] [place] ACTIN SMOOTH MUSCLE IGG QUANTITATIVE 11 Units Normal <20 [facility] Comment on above: Order Comment: Speci men Type: BLOOD SPECIMENOrdering Facility: [facility] Address: [address] [place] [address] Performed By: #### 1 4252-1, 49680-2 ####[facility] LABCLIA [id number] [place] [address] [place] XR CHEST 2V FRONTAL/LATon XR CHEST 2V FRONTAL/LAT Normal [facility] Basic metabolic 2000 panelon 12-22-2024 Anion gap [Moles/Vol] 12 mmol/L Normal 8-15 [facility] Comment on above: Order Comment: Speci men Type: BLOOD SPECIMENOrdering Facility: [facility] Address: [address] [place] [address] Performed By: #### 2 4321-2 ####[facility] LABCLIA [id number] [place] [address] [place] Calcium [Mass/Vol] 9.6 mg/dL Normal 8.5-10.2 [facility] Comment on above: Order Comment: Speci men Type: BLOOD SPECIMENOrdering Facility: [facility] Address: [address] [place] [address] Performed By: #### 2 4321-2 ####[facility] LABCLIA [id number] [place] [address] [place] Chloride [Moles/Vol] 98 mmol/L Normal 98-107 [facility] Comment on above: Order Comment: Speci men Type: BLOOD SPECIMENOrdering Facility: [facility] Address: [address] [place] [address] Performed By: #### 2 4321-2 ####[facility] LABCLIA [id number] [place] [address] [place] CO2 [Moles/Vol] 26 mmol/L Normal 22-30 [facility] Comment on above: Order Comment: Speci men Type: BLOOD SPECIMENOrdering Facility: [facility] Address: [address] [place] [address] Performed By: #### 2 4321-2 ####[facility] LABIA [id number] [place] [address] [place] Creatinine [Mass/Vol] 1.60 mg/dL High 0.73-1.22 [facility] Comment on above: Order Comment: Speci men Type: BLOOD SPECIMENOrdering Facility: [facility] Address: [address] [place] [address] Performed By: #### 2 4321-2 ####[facility] LABIA [id number] [place] [address] [place] Creatinine and Glomerular filtration rate.predicted panel (S/P/Bld) 45 mL/min/1.73m??? Low >=60 [facility] Comment on above: Order Comment: Speci men Type: BLOOD SPECIMENOrdering Facility: [facility] Address: [address] [place] [address] Result Comment: Kristel mated Glomerular Filtration Rate [...] actual GFR. Performed By: #### 2 4321-2 ####[facility] LABCLIA [id number] [place] [address] [place] Glucose [Mass/Vol] 119 mg/dL High 74-99 [facility] Comment on above: Order Comment: Speci men Type: BLOOD SPECIMENOrdering Facility: [facility] Address: [address] [place] [address] Result Comment: The [place] Diabetes [employer] (ADA) provides guidance for cutoff [...] Standards of Medical Care in Diabetes 2016, [place] [employer]. Diabetes Care. 2016.39(Suppl 1). Performed By: #### 2 4321-2 ####[facility] LABCLIA [id number] [place] [address] [place] Potassium [Moles/Vol] 4.3 mmol/L Normal 3.7-5.1 [facility] Comment on above: Order Comment: Speci men Type: BLOOD SPECIMENOrdering Facility: [facility] [facility] Address: [address] [place] [address] Performed By: #### 2 4321-2 ####[facility] LABCLIA [id number] [place] [id number] [place] Sodium [Moles/Vol] 136 mmol/L Normal 136-144 [facility] Comment on above: Order Comment: Speci men Type: BLOOD SPECIMENOrdering Facility: [facility] Address: [address] [place] [address] Performed By: #### 2 4321-2 ####[facility] LABCLIA [id number] [place] [id number] [place] Urea nitrogen [Mass/Vol] 45 mg/dL High 9-24 [facility] Comment on above: Order Comment: Speci men Type: BLOOD SPECIMENOrdering Facility: [facility] Address: [address] [place] [address] Performed By: #### 2 4321-2 ####[facility] LABCLIA [id number] [place] [id number] [place] PVR LEG ROCIO VAS LABon 2024 PVR LEG ROCIO VAS LAB Normal [facility] US VENOUS INCOMPETENCY ROCIO V LABon 12-16-2024 US VENOUS INCOMPETENCY ROCIO VAS LAB Normal [facility] CNOVon 11-23-2024 CNOV Normal [facility] CNPNon 11-23-2024 CNPN Normal [facility] US ABD RIGHT UPPER QUADRANTo n 11-23-2024 US ABD RIGHT UPPER QUADRANT * * *Final Report* * * DATE OF EXAM: Nov 23 2024 3:05PM JUDSON 1032 - US ABD RIGHT UPPER QUADRANT [...] data set. Other: Trace-small right pleural effusion. IMPRESSION: Morphological changes of chronic liver disease. [...] infiltrative diseases or in the post-prandial state. Drum Handler: ALONSO Transcribe Date/Time: Nov 26 2024 7:29A Dictated by : KRISTINA SALINAS MD This examination was interpreted and the report reviewed and electronically signed by: KRISTINA SALINAS MD on Nov 26 2024 7:35AM EST [id number] [facility] US ELASTOGRAPHY LIVERon 06-0 US ELASTOGRAPHY LIVER * * *Final Report* * * DATE [...] data set. Other: Trace-small right pleural effusion. IMPRESSION: Morphological changes of chronic liver disease. [...] infiltrative diseases or in the post-prandial state. Drum Handler: ALONSO Transcribe Date/Time: Nov 26 2024 7:29A Dictated by : KRISTINA SALINAS MD This examination was interpreted and the report reviewed and electronically signed by: KRISTINA SALINAS MD on Nov 26 2024 7:35AM EST [id number] Normal [facility] XR CHEST 2V FRONTAL/LATon XR CHEST 2V FRONTAL/LAT Normal [facility] XR Chest PA and Lateralon IMPRESSION: See result. Drum Handler: ALONSO Transcribe Date/Time: Nov 23 2024 1:39P Dictated by : CRISTOBAL ROACH MD This examination was interpreted and the report reviewed and electronically signed by: CRISTOBAL ROACH MD on Nov 23 2024 1:42PM [facility] DIVISION OF RADIOLOGY * * *Final [...] Remote fracture of the left seventh rib. DIVISION OF RADIOLOGY Provider, Cc Leonard perez Boody - 11/23/2024 * * *Final Report* * [...] left seventh rib. IMPRESSION IMPRESSION: See result. Drum Handler: ALONSO Transcribe Date/Time: Nov 23 2024 1:39P Dictated by : CRISTOBAL ROACH MD This examination was interpreted and the report reviewed and electronically signed by: CRISTOBAL ROACH MD on Nov 23 2024 1:42PM EST [facility] Radiology Study observation (narrative) [facility] XR Chest PA and LateralOrder ed By: Ccf Provider on 11-23-2024 [facility] CNOVon 11-20-2024 CNOV Normal [facility] CNOVon 11-19-2024 CNOV Normal [facility] OPERATIVE NOon 11-19-2024 OPERATIVE NO Normal [facility] US Chest limitedon [facility] Radiology Study observation (narrative) [facility] XR CHEST 1V FRONTAL PORTon 0 11-19-2024 XR CHEST 1V FRONTAL PORT Normal [facility] XR CHEST 2V FRONTAL/LATon XR CHEST 2V FRONTAL/LAT Normal [facility] XR Chest PA and Lateralon 06 -05-2025 IMPRESSION: See result Drum Handler: ALONSO Transcribe Date/Time: Nov 19 2024 3:58P Dictated by : KYLER NICHOLAS MD This examination was interpreted and the report reviewed and electronically signed by: KYLER NICHOLAS MD on Nov 19 2024 4:01PM [facility] DIVISION OF RADIOLOGY * * *Final [...] subtle posttraumatic changes of the left rib/ribs. DIVISION OF RADIOLOGY Provider, [facility] - 11/19/2024 * * *Final Report* * [...] the left rib/ribs. IMPRESSION IMPRESSION: See result Drum Handler: PSCAc Transcribe Date/Time: Nov 19 2024 3:58P Dictated by : KYLER NICHOLAS MD This examination was interpreted and the report reviewed and electronically signed by: KYLER NICHOLAS MD on Nov 19 2024 4:01PM EST [facility] Radiology Study observation (narrative) [facility] XR Chest PA and LateralOrder ed By: Ccf Provider on 11-19-2024 [facility] CNPNon 11-17-2024 CNPN Normal [facility] COPPER BLOODon 11-17-2024 Copper [Mass/Vol] 159 ug/dL High 70-140 [facility] Comment on above: Order Comment: Speci beth Type: BLOOD SPECIMENOrdering Facility: [facility] Address: [address] [place] [address] Result Comment: This test was developed, and its performance characteristics determined by the [facility] Department of Pathology and Laboratory Medicine. It has not been cleared or approved by the FDA. The [facility] Department of Pathology and Laboratory Medicine is regulated under CLIA as qualified to perform high-complexity testing. This test is used for clinical purposes. It should not be regarded as investigational or for research. Performed By: #### C OPPER ####[facility] LABCLIA [id number] [place] [address] [place] Comprehensive metabolic 2000 panelon 11-17-2024 Albumin [Mass/Vol] 4.1 g/dL Normal 3.9-4.9 [facility] Comment on above: Order Comment: Alexandru campos Type: BLOOD SPECIMENOrdering Facility: [facility] Address: [address] [place] [address] Performed By: #### 2 4323, ####[facility] LABCLIA [id number] [facility] [id number] [address] [place] ALP [Catalytic activity/Vol] 112 U/L Normal 38-113 [facility] Comment on above: Order Comment: Speci men Type: BLOOD SPECIMENOrdering Facility: [facility] Address: [address] [place] [address] Performed By: #### 2 4323-01, ####[facility] LABCLIA [id number] [facility] [id number], [place] [address] [place] ALT [Catalytic activity/Vol] 34 U/L Normal 10-54 [facility] Comment on above: Order Comment: Speci men Type: BLOOD SPECIMENOrdering Facility: [facility] Address: [address] [place] [address] Performed By: #### 2 4323-01, ####[facility] LABCLIA [id number] [facility] [address] [place] [address] [place] Anion gap [Moles/Vol] 12 mmol/L Normal 8-15 [facility] Comment on above: Order Comment: Speci men Type: BLOOD SPECIMENOrdering Facility: [facility] Address: [address] [place], [place] [address] Performed By: #### 2 4323-01, ####[facility] LABCLIA [id number] [facility] [address] [place] [address] [place] AST [Catalytic activity/Vol] 47 U/L High 14-40 [facility] Comment on above: Order Comment: Speci men Type: BLOOD SPECIMENOrdering Facility: [facility] Address: [address] [place], [place] [address] Performed By: #### 2 432-8, ####[facility] LABCLIA [id number] [facility] [address] [place] [address] [place] Bilirubin [Mass/Vol] 0.8 mg/dL Normal 0.2-1.3 [facility] Comment on above: Order Comment: Speci men Type: BLOOD SPECIMENOrdering Facility: [facility] Address: [address] [place] [address] Performed By: #### 2 4323-8, ####[facility] LABCLIA [id number] [place] [address] [place] Calcium [Mass/Vol] 9.5 mg/dL Normal 8.5-10.2 [facility] Comment on above: Order Comment: Speci men Type: BLOOD SPECIMENOrdering Facility: [facility] Address: [address] [place] [address] Performed By: #### 2 432-8, ####[facility] LABCLIA [id number] [place] [address] [place] Chloride [Moles/Vol] 97 mmol/L Low 98-107 [facility] Comment on above: Order Comment: Speci men Type: BLOOD SPECIMENOrdering Facility: [facility] Address: [address] [place] [address] Performed By: #### 2 8, ####[facility] LABCLIA [id number] [place] [address] [place] CO2 [Moles/Vol] 30 mmol/L Normal 22-30 [facility] Comment on above: Order Comment: Speci men Type: BLOOD SPECIMENOrdering Facility: [facility] Address: [address] [place], [place] [address] Performed By: #### 2 4323-8, ####[facility] LABCLIA [id number] [place] [id number] [place] Creatinine [Mass/Vol] 1.38 mg/dL High 0.73-1.22 [facility] Comment on above: Order Comment: Speci men Type: BLOOD SPECIMENOrdering Facility: [facility] Address: [address] [place] [address] Performed By: #### 2 4323-8, ####[facility] LABIA [id number] [place] [address] [place] Creatinine and Glomerular filtration rate.predicted panel (S/P/Bld) 54 mL/min/1.73m??? Low >=60 [facility] Comment on above: Order Comment: Alexandru campos Type: BLOOD SPECIMENOrdering Facility: [facility] Address: [address] [place] [address] Result Comment: Kristel mated Glomerular Filtration Rate [...] actual GFR. Performed By: #### 2 4323-8, ####[facility] LABIA [id number] [place] [address] [place] Glucose [Mass/Vol] 104 mg/dL High 74-99 [facility] Comment on above: Order Comment: Alexandru campos Type: BLOOD SPECIMENOrdering Facility: [facility] Address: [address] [place] [address] Result Comment: The [place] Diabetes Association (ADA) provides guidance for cutoff [...] Standards of Medical Care in Diabetes 2016, [place] [employer]. Diabetes Care. 2016.39(Suppl 1). Performed By: #### 2 8, ####[facility] LABCLIA [id number] [address] [place] [address] [place] Potassium [Moles/Vol] 3.8 mmol/L Normal 3.7-5.1 [facility] Comment on above: Order Comment: Speci men Type: BLOOD SPECIMENOrdering Facility: [facility] Address: [address] [place] [address] Performed By: #### 2 4323-01, ####[facility] LABCLIA [id number] [place] [id number] [place] Protein [Mass/Vol] 7.3 g/dL Normal 6.3-8.0 [facility] Comment on above: Order Comment: Speci men Type: BLOOD SPECIMENOrdering Facility: [facility] Address: [address] [place] [address] Performed By: #### 2 4323-01, ####[facility] LABCLIA [id number] [address] [address] [place] Sodium [Moles/Vol] 139 mmol/L Normal 136-144 [facility] Comment on above: Order Comment: Speci men Type: BLOOD SPECIMENOrdering Facility: [facility] Address: [address] [place], [place] [address] Performed By: #### 2 4323-01, ####[facility] LABCLIA [id number] [address] [place] [address] [place] Urea nitrogen [Mass/Vol] 55 mg/dL High 9-24 [facility] Comment on above: Order Comment: Speci men Type: BLOOD SPECIMENOrdering Facility: [facility] Address: [address] [place], [place] [address] Performed By: #### 2 4328, ####[facility] LABCLIA [id number] [place] [address] [place] HAV IgM Ser Qlon 11-17-2024 HAV IgM Ql (S) Negative Normal Negative [facility] Comment on above: Order Comment: Speci men Type: BLOOD SPECIMENOrdering Facility: [facility] Address: [address] [place] [address] Result Comment: No e vidence of recent infection with Hepatitis A virus. Performed By: #### 3 1204-1, 5195-3, 06519-0 ####[facility] LABCLIA [id number] [place] [address] [place] HBV core IgM Ser Qlon 2024 HBV core IgM Ql (S) Negative Normal Negative [facility] Comment on above: Order Comment: Speci men Type: BLOOD SPECIMENOrdering Facility: [facility] Address: [address] [place] [address] Result Comment: No e vidence of recent infection with Hepatitis B virus. Should recent infection be suspected, repeat testing may be considered 3-4 weeks after this draw. Performed By: #### 3 1204-1, 5195-3, 07247-1 ####[facility] LABCLIA [id number] [place] [address] [place] HBV surface Ag Ser Qlon 06- HBV surface Ag Ql (S) Negative Normal Negative [facility] Comment on above: Order Comment: Speci men Type: BLOOD SPECIMENOrdering Facility: [facility] Address: [address] [place] [address] Performed By: #### 3 1204-1, 5195-3, 07565-8 ####[facility] LABCLIA [id number] [address] [place] HCV Ab Ser Qlon 11-17-2024 HCV Ab Ql (S) Negative Normal Negative [facility] Comment on above: Order Comment: Speci men Type: BLOOD SPECIMENOrdering Facility: [facility] Address: [address] [place] [address] Result Comment: The result suggests no evidence of infection with Hepatitis C virus. Should recent infection be suspected, repeat testing may be considered 4-6 weeks after this draw. Performed By: #### 1 6128-1 ####[facility] LABIA [id number] [place] [address] [place] HCV RNA BRYN+probe Qnon 11-17 HCV RNA BRYN+probe Ql Not detected Normal Not detected [facility] Comment on above: Order Comment: Speci men Type: BLOOD SPECIMENOrdering Facility: [facility] Address: [address] [place] [address] Performed By: #### 1 1011-4 ####[facility] [id number] [place] [address] [place] Iron and Iron binding capaci ty panelon 11-17-2024 Iron [Mass/Vol] 72 ug/dL Normal 41-186 [facility] Comment on above: Order Comment: Speci men Type: BLOOD SPECIMENOrdering Facility: [facility] Address: [address] [place] [address] Performed By: #### 5 0190-8 ####[facility] [id number] [address] [place] Iron binding capacity [Mass/Vol] 321 ug/dL Normal 232-386 [facility] Comment on above: Order Comment: Speci men Type: BLOOD SPECIMENOrdering Facility: [facility] Address: [address] [place] [address] Performed By: #### 5 0190-8 ####[facility] LABIA [id number] [place] [address] [place] Iron/TIBC [Molar ratio] 22.4 % Normal 15.0-57.0 [facility] Comment on above: Order Comment: Speci men Type: BLOOD SPECIMENOrdering Facility: [facility] Address: [address] [place] [address] Performed By: #### 5 0190-8 ####[facility] LABCLIA [id number] [place] [address] [place] Magnesium SerPl-mCncon 11-17 Magnesium [Mass/Vol] 2.3 mg/dL Normal 1.7-2.3 [facility] Comment on above: Order Comment: Speci men Type: BLOOD SPECIMENOrdering Facility: [facility] Address: [address] [place] [address] Performed By: #### 2 4323-8, 95742-1 ####[facility] LABCLIA [id number] [place] [address] [place] CBC W Auto Differential pane l (Bld)on 11-12-2024 Basophils (Bld) [#/Vol] 10*3/uL Normal <0.11 [facility] Comment on above: Order Comment: Speci men Type: BLOOD SPECIMENOrdering Facility: [facility] Address: [address] [place] [address] Performed By: #### 5 7021-8 ####[facility] LABIA [id number] [place] [address] [place] Basophils/100 WBC (Bld) 0.2 % Normal [facility] Comment on above: Order Comment: Speci men Type: BLOOD SPECIMENOrdering Facility: [facility] Address: [address] [place] [address] Performed By: #### 5 7021-8 ####[facility] LABCLIA [id number] [place] [id number] [place] Differential cell count method Nom (Bld) Auto Normal [facility] Comment on above: Order Comment: Speci men Type: BLOOD SPECIMENOrdering Facility: [facility] Address: [address] [place] [address] Performed By: #### 5 7021-8 ####[facility] LABIA [id number] [place] [id number] [place] Eosinophils (Bld) [#/Vol] 10*3/uL Normal <0.46 [facility] Comment on above: Order Comment: Speci men Type: BLOOD SPECIMENOrdering Facility: [facility] Address: [address] [place] [address] Performed By: #### 5 7021-8 ####[facility] LABCLIA [id number] [place] [address] [place] Eosinophils/100 WBC (Bld) 0.0 % Normal [facility] Comment on above: Order Comment: Speci men Type: BLOOD SPECIMENOrdering Facility: [facility] Address: [address] [place] [address] Performed By: #### 5 7021-8 ####[facility] LABCLIA [id number] [place] [address] [place] Erythrocyte distribution width (RBC) [Ratio] 16.6 % High 11.5-15.0 [facility] Comment on above: Order Comment: Speci men Type: BLOOD SPECIMENOrdering Facility: [facility] Address: [address] [place] [address] Performed By: #### 5 7021-8 ####[facility] LABCLIA [id number] [place] [address] [place] Hematocrit (Bld) [Volume fraction] 37.1 % Low 39.0-51.0 [facility] Comment on above: Order Comment: Speci men Type: BLOOD SPECIMENOrdering Facility: [facility] Address: [address] [place] [address] Performed By: #### 5 7021-8 ####[facility] LABCLIA [id number] [place] [address] [place] Hemoglobin (Bld) [Mass/Vol] 12.3 g/dL Low 13.0-17.0 [facility] Comment on above: Order Comment: Speci men Type: BLOOD SPECIMENOrdering Facility: [facility] Address: [address] [place] [address] Performed By: #### 5 7021-8 ####[facility] LABCLIA [id number] [place] [address] [place] Immature granulocytes (Bld) [#/Vol] 0.16 10*3/uL High <0.10 [facility] Comment on above: Order Comment: Speci men Type: BLOOD SPECIMENOrdering Facility: [facility] Address: [address] [place] [address] Performed By: #### 5 7021-8 ####[facility] LABCLIA [id number] [place] [address] [place] Immature granulocytes/100 WBC (Bld) 1.8 % Normal [facility] Comment on above: Order Comment: Speci men Type: BLOOD SPECIMENOrdering Facility: [facility] Address: [address] [place] [address] Performed By: #### 5 7021-8 ####[facility] LABIA [id number] [place] [address] [place] Lymphocytes (Bld) [#/Vol] 0.91 10*3/uL Low 1.00-4.00 [facility] Comment on above: Order Comment: Speci men Type: BLOOD SPECIMENOrdering Facility: [facility] Address: [address] [place] [address] Performed By: #### 5 7021-8 ####[facility] LABCLIA [id number] [place] [address] [place] Lymphocytes/100 WBC (Bld) 10.4 % Normal [facility] Comment on above: Order Comment: Speci men Type: BLOOD SPECIMENOrdering Facility: [facility] Address: [address] [place] [address] Performed By: #### 5 7021-8 ####[facility] LABCLIA [id number] [address] [place] MCH (RBC) [Entitic mass] 32.2 pg Normal 26.0-34.0 [facility] Comment on above: Order Comment: Speci men Type: BLOOD SPECIMENOrdering Facility: [facility] Address: [address] [place] [address] Performed By: #### 5 7021-8 ####[facility] LABIA [id number] [place] [address] [place] MCHC (RBC) [Mass/Vol] 33.2 g/dL Normal 30.5-36.0 [facility] Comment on above: Order Comment: Speci men Type: BLOOD SPECIMENOrdering Facility: [facility] Address: [address] [place] [address] Performed By: #### 5 7021-8 ####[facility] LABCLIA [id number] [place] [address] [place] MCV (RBC) [Entitic vol] 97.1 fL Normal 80.0-100.0 [facility] Comment on above: Order Comment: Speci men Type: BLOOD SPECIMENOrdering Facility: [facility] Address: [address] [place] [address] Performed By: #### 5 7021-8 ####[facility] LABIA [id number] [place] [address] [place] Monocytes (Bld) [#/Vol] 0.67 10*3/uL Normal <0.87 [facility] Comment on above: Order Comment: Speci men Type: BLOOD SPECIMENOrdering Facility: [facility] Address: [address] [place] [address] Performed By: #### 5 7021-8 ####[facility] LABCLIA [id number] [place] [address] [place] Monocytes/100 WBC (Bld) 7.6 % Normal [facility] Comment on above: Order Comment: Speci men Type: BLOOD SPECIMENOrdering Facility: [facility] Address: [address] [place] [address] Performed By: #### 5 7021-8 ####[facility] LABCLIA [id number] [place] [address] [place] Neutrophils (Bld) [#/Vol] 7.03 10*3/uL Normal 1.45-7.50 [facility] Comment on above: Order Comment: Speci men Type: BLOOD SPECIMENOrdering Facility: [facility] Address: [address] [place] [address] Performed By: #### 5 7021-8 ####[facility] LABCLIA [id number] [place] [address] [place] Neutrophils/100 WBC (Bld) 80.0 % Normal [facility] Comment on above: Order Comment: Speci men Type: BLOOD SPECIMENOrdering Facility: [facility] Address: [address] [place] [address] Performed By: #### 5 7021-8 ####[facility] LABCLIA [id number] [place] [address] [place] Nucleated RBC (Bld) [#/Vol] 10*3/uL Normal <0.01 [facility] Comment on above: Order Comment: Speci men Type: BLOOD SPECIMENOrdering Facility: [facility] Address: [address] [place] [address] Performed By: #### 5 7021-8 ####[facility] LABCLIA [id number] [place] [id number] [place] Nucleated RBC/100 WBC (Bld) [Ratio] 0.0 /100 WBC Normal [facility] Comment on above: Order Comment: Speci men Type: BLOOD SPECIMENOrdering Facility: [facility] Address: [address] [place] [address] Performed By: #### 5 7021-8 ####[facility] LABCLIA [id number] [address] [place] [address] [place] Platelet mean volume (Bld) [Entitic vol] 10.0 fL Normal 9.0-12.7 [facility] Comment on above: Order Comment: Speci men Type: BLOOD SPECIMENOrdering Facility: [facility] Address: [address] [place] [address] Performed By: #### 5 7021-8 ####[facility] LABCLIA [id number] [address], [facility] [place] Platelets (Bld) [#/Vol] 189 10*3/uL Normal 150-400 [facility] Comment on above: Order Comment: Speci men Type: BLOOD SPECIMENOrdering Facility: [facility] Address: [address] [place] [address] Performed By: #### 5 7021-8 ####[facility] LABCLIA [id number] [place] [address] [place] RBC (Bld) [#/Vol] 3.82 10*6/uL Low 4.20-6.00 [facility] Comment on above: Order Comment: Speci men Type: BLOOD SPECIMENOrdering Facility: [facility] Address: [address] [place] [address] Performed By: #### 5 7021-8 ####[facility] LABCLIA [id number] [place] [id number] [place] WBC (Bld) [#/Vol] 8.79 10*3/uL Normal 3.70-11.00 [facility] Comment on above: Order Comment: Speci men Type: BLOOD SPECIMENOrdering Facility: [facility] Address: [address] [place] [address] Performed By: #### 5 7021-8 ####[facility] LABCLIA [id number] [address] [place] [address] [place] Comprehensive metabolic 2000 panelon 11-12-2024 Albumin [Mass/Vol] 3.8 g/dL Low 3.9-4.9 [facility] Comment on above: Order Comment: Speci men Type: BLOOD SPECIMENOrdering Facility: [facility] Address: [address] [place] [address] Performed By: #### 1 9123-9, 23551-4, [id number], 42747-6 ####[facility] LABCLIA [id number] [place] [address] [place] ALP [Catalytic activity/Vol] 108 U/L Normal 38-113 [facility] Comment on above: Order Comment: Speci men Type: BLOOD SPECIMENOrdering Facility: [facility] Address: [address] [place] [address] Performed By: #### 1 9123-9, 83771-7, [id number], 87777-8 ####[facility] LABCLIA [id number] [place] [address] [place] ALT [Catalytic activity/Vol] 40 U/L Normal 10-54 [facility] Comment on above: Order Comment: Speci men Type: BLOOD SPECIMENOrdering Facility: [facility] Address: [address] [place] [address] Performed By: #### 1 9123-9, 68957-5, [id number], 23310-5 ####[facility] LABCLIA [id number] [place] [id number] [place] Anion gap [Moles/Vol] 15 mmol/L Normal 8-15 [facility] Comment on above: Order Comment: Speci men Type: BLOOD SPECIMENOrdering Facility: [facility] Address: [address] [place] [address] Performed By: #### 1 9123-9, 98640-0, [id number], 09815-1 ####[facility] LABCLIA [id number] [address], [facility] [place] AST [Catalytic activity/Vol] 46 U/L High 14-40 [facility] Comment on above: Order Comment: Speci men Type: BLOOD SPECIMENOrdering Facility: [facility] Address: [address] [place] [address] Performed By: #### 1 9123-9, 64818-3, QQL7324, 69170-3 ####[facility] LABCLIA [id number] [place] [address] [place] Bilirubin [Mass/Vol] 0.7 mg/dL Normal 0.2-1.3 [facility] Comment on above: Order Comment: Speci men Type: BLOOD SPECIMENOrdering Facility: [facility] Address: [address] [place] [address] Performed By: #### 1 9123-9, 71928-9, QNT7488, 16014-5 ####[facility] LABCLIA [id number] [place] [address] [place] Calcium [Mass/Vol] 8.8 mg/dL Normal 8.5-10.2 [facility] Comment on above: Order Comment: Speci men Type: BLOOD SPECIMENOrdering Facility: [facility] Address: [address] [place] [address] Performed By: #### 1 9123-9, 49680-6, [id number], 39560-2 ####[facility] LABCLIA [id number] [place] [address] [place] Chloride [Moles/Vol] 103 mmol/L Normal 98-107 [facility] Comment on above: Order Comment: Speci men Type: BLOOD SPECIMENOrdering Facility: [facility] Address: [address] [place] [address] Performed By: #### 1 9123-9, 27791-0, SXN0059, 86200-3 ####[facility] LABCLIA [id number] [place] [id number] [place] CO2 [Moles/Vol] 23 mmol/L Normal 22-30 [facility] Comment on above: Order Comment: Speci men Type: BLOOD SPECIMENOrdering Facility: [facility] Address: [address] [place] [address] Performed By: #### 1 9123-9, 68008-5, [id number], 02957-5 ####[facility] LABCLIA [id number] [address] [address] [place] Creatinine [Mass/Vol] 1.12 mg/dL Normal 0.73-1.22 [facility] Comment on above: Order Comment: Speci men Type: BLOOD SPECIMENOrdering Facility: [facility] Address: [address] [place] [address] Performed By: #### 1 9123-9, 18494-9, [id number], 40287-5 ####[facility] LABCLIA [id number] [place] [address] [place] Creatinine and Glomerular filtration rate.predicted panel (S/P/Bld) 69 mL/min/1.73m??? Normal >=60 [facility] Comment on above: Order Comment: Antonellai beth Type: BLOOD SPECIMENOrdering Facility: [facility] Address: [address] [place] [address] Result Comment: Kristel mated Glomerular Filtration Rate [...] actual GFR. Performed By: #### 1 9123-9, 71211-4, [id number], 14137-2 ####[facility] LABCLIA [id number] [address] [address] [place] Glucose [Mass/Vol] 115 mg/dL High 74-99 [facility] Comment on above: Order Comment: Speci men Type: BLOOD SPECIMENOrdering Facility: [facility] Address: [address] [place] [address] Result Comment: The [place] Diabetes Association (ADA) provides guidance for cutoff [...] Standards of Medical Care in Diabetes 2016, [place] [employer]. Diabetes Care. 2016.39(Suppl 1). Performed By: #### 1 9123-9, 13527-4, FKF2432, 76250-5 ####[facility] LABCLIA [id number] [place] [address] [place] Potassium [Moles/Vol] 3.3 mmol/L Low 3.7-5.1 [facility] Comment on above: Order Comment: Speci men Type: BLOOD SPECIMENOrdering Facility: [facility] Address: [address] [place] [address] Performed By: #### 1 9123-9, 07743-2, [id number], 06101-9 ####[facility] LABCLIA [id number] [place] [id number] [place] Protein [Mass/Vol] 6.7 g/dL Normal 6.3-8.0 [facility] Comment on above: Order Comment: Speci men Type: BLOOD SPECIMENOrdering Facility: [facility] Address: [address] [place], [place] [address] Performed By: #### 1 9123-9, 32220-9, HMT1114, 06571-7 ####[facility] LABCLIA [id number] [place] [id number] [place] Sodium [Moles/Vol] 141 mmol/L Normal 136-144 [facility] Comment on above: Order Comment: Speci men Type: BLOOD SPECIMENOrdering Facility: [facility] Address: [address] [place] [address] Performed By: #### 1 9123-9, 08227-5, [id number], 42992-5 ####[facility] LABCLIA [id number] [place] [address] [place] Urea nitrogen [Mass/Vol] 37 mg/dL High 9-24 [facility] Comment on above: Order Comment: Speci men Type: BLOOD SPECIMENOrdering Facility: [facility] Address: [address] [place] [address] Performed By: #### 1 9123-9, 84464-2, FBE1370, 19781-1 ####[facility] LABCLIA [id number] [place] [address] [place] ECG COMPLETEon 11-12-2024 ECG COMPLETE Normal [facility] ED NOTEon 11-12-2024 ED NOTE HNO ID: [id number] Author: EDWIN MANSFIELD RN Service: ? Author Type: Registered Nurse Type: ED Notes Filed: 11/12/2024 19:04 Note Text: Pt. D/c as ordered Pt .verbalized understanding of all d/c instructions. No further needs noted at this time. Normal [facility] ED NOTE Normal [facility] ED PROGRESS NOTE (PROVIDER)o n 11-12-2024 ED PROGRESS NOTE (PROVIDER) Normal [facility] ED PROV NOTEon 11-12-2024 ED PROV NOTE Normal [facility] ED Triage Noteon 11-12-2024 ED Triage Note Normal [facility] HIGH SENSITIVITY TROPONIN T (INITIAL)on 11-12-2024 Troponin T.cardiac High sensitivity method [Mass/Vol] 18 ng/L High <12 [facility] Comment on above: Order Comment: Speci men Type: BLOOD SPECIMENOrdering Facility: [facility] Address: [address] [place] [address] Performed By: #### 1 9123-9, 22636-0, [id number], 66187-9 ####[facility] LABIA [id number] [place] [address] [place] HIGH SENSITIVITY TROPONIN T (SECOND)on 11-12-2024 Troponin T.cardiac High sensitivity method [Mass/Vol] 17 ng/L High <12 [facility] Comment on above: Order Comment: Speci men Type: BLOOD SPECIMENOrdering Facility: [facility] Address: [address] [place] [address] Performed By: #### L [id number] ####[facility] LABIA [id number] [address] HIGH SENSITIVITY TROPONIN T (THIRD) 3 HRS AFTER INITIALon 11-12-2024 Troponin T.cardiac High sensitivity method [Mass/Vol] 16 ng/L High <12 [facility] Comment on above: Order Comment: Speci men Type: BLOOD SPECIMENOrdering Facility: [facility] Address: [address] [place] [address] Performed By: #### L [id number] ####[facility] [id number] [place] [address] [place] Magnesium SerPl-mCncon 11-12 Magnesium [Mass/Vol] 2.1 mg/dL Normal 1.7-2.3 [facility] Comment on above: Order Comment: Speci men Type: BLOOD SPECIMENOrdering Facility: [facility] Address: [address] [place] [address] Performed By: #### 1 9123-9, 22498-9, [id number], 00826-2 ####[facility] LABIA [id number] [place] [address] [place] NT-proBNP SerPl-mCncon 11-12 Natriuretic peptide.B prohormone N-Terminal [Mass/Vol] 465 pg/mL High <125 [facility] Comment on above: Order Comment: Speci men Type: BLOOD SPECIMENOrdering Facility: [facility] Address: [address] [place], [place] [address] Performed By: #### 1 9123-9, 16267-6, NJP2464, 66701-6 ####[facility] LABCLIA [id number] [place] [place] [address] [address] [place] US DVT LOWER BILon US DVT LOWER ROCIO Normal [facility] XR CHEST 2V FRONTAL/LATon XR CHEST 2V FRONTAL/LAT Normal [facility] Basic metabolic 2000 panelon 11-05-2024 Anion gap [Moles/Vol] 13 mmol/L Normal 8-15 [facility] Comment on above: Order Comment: Speci men Type: BLOOD SPECIMENOrdering Facility: [facility] Address: [address] [place] [address] Performed By: #### 1 9123-9, 27235-2 ####[facility] LABCLIA [id number] [place] [address] Calcium [Mass/Vol] 9.0 mg/dL Normal 8.5-10.2 [facility] Comment on above: Order Comment: Speci men Type: BLOOD SPECIMENOrdering Facility: [facility] Address: [address] [place] [address] Performed By: #### 1 9123-9, 03184-9 ####[facility] LABCLIA [id number] [place] [address] Chloride [Moles/Vol] 100 mmol/L Normal 98-107 [facility] Comment on above: Order Comment: Speci men Type: BLOOD SPECIMENOrdering Facility: [facility] Address: [address] [place] [address] Performed By: #### 1 9123-9, 10564-1 ####[facility] LABCLIA [id number] [place] [address] CO2 [Moles/Vol] 25 mmol/L Normal 22-30 [facility] Comment on above: Order Comment: Speci men Type: BLOOD SPECIMENOrdering Facility: [facility] Address: [address] [place] [address] Performed By: #### 1 9123-9, 17096-6 ####[facility] LABCLIA [id number] [place] [address] Creatinine [Mass/Vol] 1.08 mg/dL Normal 0.73-1.22 [facility] Comment on above: Order Comment: Speci men Type: BLOOD SPECIMENOrdering Facility: [facility] Address: [address] [place] [address] Performed By: #### 1 9123-9, 57609-2 ####[facility] LABCLIA [id number] [place] [address] Creatinine and Glomerular filtration rate.predicted panel (S/P/Bld) 72 mL/min/1.73m??? Normal >=60 [facility] Comment on above: Order Comment: Speci men Type: BLOOD SPECIMENOrdering Facility: [facility] Address: [address] [place] [address] Result Comment: Kristel mated Glomerular Filtration Rate [...] actual GFR. Performed By: #### 1 9123-9, 57343-7 ####[facility] LABIA [id number] [place] [address] Glucose [Mass/Vol] 140 mg/dL High 74-99 [facility] Comment on above: Order Comment: Speci men Type: BLOOD SPECIMENOrdering Facility: [facility] Address: [address] [place] [id number] Result Comment: The [place] Diabetes Association (ADA) provides guidance for cutoff [...] Standards of Medical Care in Diabetes 2016, [place] [employer]. Diabetes Care. 2016.39(Suppl 1). Performed By: #### 1 9123-9, 19666-9 ####[facility] LABCLIA [id number] [place] [address] Potassium [Moles/Vol] 4.0 mmol/L Normal 3.7-5.1 [facility] Comment on above: Order Comment: Speci men Type: BLOOD SPECIMENOrdering Facility: [facility] Address: [address] [place] [address] Performed By: #### 1 91239, 94621-3 ####[facility] LABIA [id number] [place] [address] Sodium [Moles/Vol] 138 mmol/L Normal 136-144 [facility] Comment on above: Order Comment: Speci men Type: BLOOD SPECIMENOrdering Facility: [facility] Address: [address] [place] [address] Performed By: #### 1 91239, 84928-8 ####[facility] LABCLIA [id number] [place] [address] Urea nitrogen [Mass/Vol] 39 mg/dL High 9-24 [facility] Comment on above: Order Comment: Speci men Type: BLOOD SPECIMENOrdering Facility: [facility] Address: [address] [place] [address] Performed By: #### 1 9123-9, 18023-7 ####[facility] LABCLIA [id number] [place] [address] CBC panel Auto (Bld)on 11-05 Erythrocyte distribution width (RBC) [Ratio] 16.2 % High 11.5-15.0 [facility] Comment on above: Order Comment: Speci men Type: BLOOD SPECIMENOrdering Facility: [facility] Address: [address] [place] [address] Performed By: #### 5 8410-2 ####[facility] LABCLIA [id number] [place] [address] Hematocrit (Bld) [Volume fraction] 38.3 % Low 39.0-51.0 [facility] Comment on above: Order Comment: Speci men Type: BLOOD SPECIMENOrdering Facility: [facility] Address: [address] [place] [address] Performed By: #### 5 8410-2 ####[facility] LABCLIA [id number] [place] [address] Hemoglobin (Bld) [Mass/Vol] 12.4 g/dL Low 13.0-17.0 [facility] Comment on above: Order Comment: Speci men Type: BLOOD SPECIMENOrdering Facility: [facility] Address: [address] [place] [address] Performed By: #### 5 8410-2 ####[facility] LABCLIA [id number] [place] [address] MCH (RBC) [Entitic mass] 31.9 pg Normal 26.0-34.0 [facility] Comment on above: Order Comment: Speci men Type: BLOOD SPECIMENOrdering Facility: [facility] Address: [address] [place] [address] Performed By: #### 5 8410-2 ####[facility] LABCLIA [id number] [place] [address] MCHC (RBC) [Mass/Vol] 32.4 g/dL Normal 30.5-36.0 [facility] Comment on above: Order Comment: Speci men Type: BLOOD SPECIMENOrdering Facility: [facility] Address: [address] [place] [address] Performed By: #### 5 8410-2 ####[facility] LABCLIA [id number] [place] [address] MCV (RBC) [Entitic vol] 98.5 fL Normal 80.0-100.0 [facility] Comment on above: Order Comment: Speci men Type: BLOOD SPECIMENOrdering Facility: [facility] Address: [address] [place] [address] Performed By: #### 5 8410-2 ####[facility] LABCLIA [id number] [place] [address] Nucleated RBC (Bld) [#/Vol] 10*3/uL Normal <0.01 [facility] Comment on above: Order Comment: Speci men Type: BLOOD SPECIMENOrdering Facility: [facility] Address: [address] [place] [address] Performed By: #### 5 8410-2 ####[facility] LABIA [id number] [place] [address] Platelet mean volume (Bld) [Entitic vol] 9.8 fL Normal 9.0-12.7 [facility] Comment on above: Order Comment: Speci men Type: BLOOD SPECIMENOrdering Facility: [facility] Address: [address] [place] [address] Performed By: #### 5 8410-2 ####[facility] LABCLIA [id number] [place] [address] Platelets (Bld) [#/Vol] 150 10*3/uL Normal 150-400 [facility] Comment on above: Order Comment: Speci men Type: BLOOD SPECIMENOrdering Facility: [facility] Address: [address] [place] [address] Performed By: #### 5 8410-2 ####[facility] LABCLIA [id number] [place] [address] RBC (Bld) [#/Vol] 3.89 10*6/uL Low 4.20-6.00 [facility] Comment on above: Order Comment: Speci men Type: BLOOD SPECIMENOrdering Facility: [facility] Address: [address] [place] [address] Performed By: #### 5 8410-2 ####[facility] LABIA [id number] [place] [address] WBC (Bld) [#/Vol] 8.65 10*3/uL Normal 3.70-11.00 [facility] Comment on above: Order Comment: Speci men Type: BLOOD SPECIMENOrdering Facility: [facility] Address: [address] [place] [address] Performed By: #### 5 8410-2 ####[facility] LABIA [id number] [place] [address] Magnesium SerPl-ncon 11-05 Magnesium [Mass/Vol] 2.4 mg/dL High 1.7-2.3 [facility] Comment on above: Order Comment: Speci men Type: BLOOD SPECIMENOrdering Facility: [facility] Address: [address] [place] [address] Performed By: #### 1 9123-9, 64535-8 ####[facility] LABIA [id number] [place] [address] CNPNevaeh 11-04-2024 CNPN Telephone ([facility]) -- SAV RAYMUNDO ([id number]) 1950 M Date Time Provider Department 11/04/24 [facility] During your visit today, we recorded the following information about you: Dragan Lopez CT 11/04/2024 3:03 PM Signed This pt experienced an IV extravasation of 100ml of omnipaque [address] 11/04/24. He was treated and observed with no other complaints. Another IV was started and his exam was completed. He was given home going instructions on dealing with extravasations and given the opportunity to ask any questions. Thank you Xiomara Ly APRN.STEAM T[employer]NEL [employer]EDER 11/07/2024 11:17 PM Signed Reviewed notification. No further action needed at this time. Xiomara Ly APRN.STEAM T[employer]NEL FEEDER Allergies As of Date: 11/04/2024 Noted Allergy Reaction TRAMADOL 12/15/2020 1 - Mental Status Change Date Reviewed: 11/04/2024 Reviewed by: Dragan Lopez CT - Fully Assessed Reason for Visit: Radiology CT [8720] Patient Update [1234] Prescriptions as of 11/07/2024 - quiNINE 324 mg capsule Take 1 capsule by mouth twice daily - potassium chloride (K-TAB) 20 mEq TbER 2 tablets by ORAL/FEEDING TUBE route three times a day. - pantoprazole DR (PROTONIX) 40 mg tablet Take 40 mg by mouth once daily. - ascorbic acid, vitamin C, (VITAMIN C) 500 mg tablet Take 1,000 mg by mouth once daily. - multivit-min/ferrous fumarate (MULTI VITAMIN ORAL) Take 1 tablet by mouth once daily. - guaifenesin/dextromethorph an (MUCINEX DM ORAL) Take by mouth two times a day. - loratadine (CLARITIN) 10 mg tablet Take 10 mg by mouth once daily. - torsemide (DEMADEX) 100 mg tablet Take 1 tablet by mouth once daily. - calcium vad-ejc-J5-Zn-helicopter specialist-kian 250 mg-40 mg- 125 unit-3.75mg tab Take by mouth. - diclofenac (VOLTAREN) 1 % topical gel - amoxicillin (AMOXIL) 500 mg capsule - allopurinol (ZYLOPRIM) 300 mg tablet Take 300 mg by mouth once daily. - atorvastatin (LIPITOR) 10 mg tablet Take 1 tablet by mouth once daily. Problem List As Of Date 11/04/2024 Noted Resolved Obesity, Class I, BMI 30-34.9 [E66.811] 10/25/2023 Pleural effusion [J90] 11/20/2023 Postoperative pain [G89.18] 11/21/2023 Generalized edema [R60.1] 12/20/2023 Primary hypertension [I10] 12/20/2023 Pleural effusion, not elsewhere classified [J90]12/20/2023 History of pericarditis [Z86.79] 12/25/2023 Elevated sedimentation rate [R70.0] 12/25/2023 Elevated C-reactive protein (CRP) [R79.82] 12/25/2023 Raynaud's phenomenon without gangrene [I73.00] 12/25/2023 12/26/2023 Pleuritis [R09.1] 03/17/2024 Chronic cough [R05.3] 03/17/2024 Lymphocytic colitis [K52.832] 05/19/2024 Lung nodule [R91.1] 05/19/2024 Esophageal dysphagia [R13.19] 09/24/2024 FLOYD (acute kidney injury) [N17.9] 10/15/2024 Encounter Status:Closed by DRAGAN LOPEZ on 11/04/[address] [facility] [address] ENTEROGRAPHY W IVCONon CT ENTEROGRAPHY W IVCON * * *Final Report* * [...] left atelectasis. Localizer images: No additional findings. IMPRESSION: NO ACTIVE INFLAMMATORY SMALL BOWEL CROHN'S DISEASE. SUSPECTED CHRONIC LIVER DISEASE WITH SMALL VOLUME ASCITES. SMALL RIGHT PLEURAL EFFUSION WITH RIGHT PLEURAL CATHETER. SMALL HIATAL HERNIA. Drum Handler: PSCAc Transcribe Date/Time: Nov 04 2024 3:57P Dictated by : IZABELA ALMBERT MD This examination was interpreted and the report reviewed and electronically signed by: IZABELA LAMBERT MD on Nov 04 2024 5:14PM EST [id number] Normal [facility] NURSING PROGon 11-04-2024 NURSING PROG HNO ID: [id number] Author: COLBY VAZQUEZ RN Service: Radiology Author Type: Registered Nurse Type: Nursing Progress Note Filed: 11/04/2024 14:03 Note Text: Radiology Service Progress Note DATE OF SERVICE: November 04, 2024 TIME: 1:45 PM PATIENT WEIGHT: 185 LBS PATIENT IDENTITY VERIFICATION COMPLETED USING TWO (2) STANDARD IDENTIFIERS: Name and Date of confirmed by patient verbally and Name and Date of confirmed by identification band. FALL SCREENING: Has the patient had 2 falls in the last year or 1 fall with injury or currently using an Ambulatory Assistive Device (Walker, Cane, Wheelchair, Crutches, etc.)? No PATIENT GENDER DATA: Assigned male at ALLERGIES: Reviewed and unchanged CONTRAST ALLERGY: No EXAM: CT -CONTRAST INDUCED NEPHROPATHY RISK FACTORS: Patient age > 60 years CREATININE: Creatinine Date Value Ref Range Status 10/15/2024 1.09 0.73 - 1.22 mg/dL Final 10/14/2024 1.13 0.73 - 1.22 mg/dL Final 09/11/2024 1.71 (H) 0.73 - 1.22 mg/dL Final Estimated Glomerular Filtration Rate Date Value Ref Range Status 10/15/2024 72 >=60 mL/min/1.73m? Final Comment: Estimated Glomerular Filtration [...] reflect actual GFR. P.O.C.T. RESULTS: N/A November 04, 2024 TREATMENT: N/A IV SITE: Ambulatory: A peripheral IV was started in the Right forearm with a Angio cath: 20 gauge. 2 inch started under ultrasound guidance. IV SITE APPEARANCE: Clean,Dry and Intact SIGNATURE: Colby Vazquez RN PATIENT NAME: Sav Raymundo DATE: November 04, 2024 TIME: 1:45 PM Normal [facility] NURSING PROG HNO ID: [id number] Author: COLBY VAZQUEZ RN Service: Radiology Author Type: Registered Nurse Type: Nursing Progress Note Filed: 11/04/2024 15:03 Note Text: PATIENT EDUCATION TOPIC: PATIENT INFORMATION: After an IV Contrast Extravasation or IV Fluid/Medication Infiltration PATIENT NAME: Sav Raymundo PATIENT LOCATION: Room/bed info not found READINESS TO LEARN COGNITIVE ABILITY: Alert and oriented MOTIVATION TO LEARN: Interested FAMILY SUPPORT: High - Very involved in pt care INSTRUCTION PROVIDED TO: Patient and Spouse PATIENT LEARNS BEST BY: Multiple Methods FACTORS AFFECTING LEARNING: None PHYSICAL LIMITATIONS AFFECTING LEARNING: None LEARNING RESPONSE DIAGNOSIS: ADULT: Contrast Extravasation PATIENT/FAMILY RESPONSE: Verbalizes understanding of: WORSENING CONDITION-Signs and symptoms of a worsening condition that warrant a call to the physician METHOD OF INSTRUCTION: Written instruction/Handouts Verbal instruction FOLLOW-UP PLAN: Complete - No need for follow-up Patient instructed to call with any further issues INSTRUCTIONAL AIDS USED: NA SUPPLEMENTAL MATERIAL PROVIDED TO PATIENT: Home going instructions for contrast extravasation REFERRAL (RECOMMENDATION): None Electronically Signed By: Colby Vazquez Normal [facility] FAT, FECAL QUALon 10-28-2024 FAT, FECAL - NEUTRAL Normal Normal Normal [facility] Comment on above: Order Comment: Speci men Type: STOOL SPECIMENOrdering Facility: [facility] Address: [address] [place] [address] Performed By: #### F FATQL ####[facility]IES[facility]IA [id number] [place] [address] FAT, FECAL - SPLIT Normal Normal Normal [facility] Comment on above: Order Comment: Speci men Type: STOOL SPECIMENOrdering Facility: [facility] Address: [address] [place] [address] Result Comment: INTE RPRETIVE INFORMATION: Fecal Fat QualitativeNeutral fats include the monoglycerides, diglycerides, andtriglycerides while split fats are the free fatty acidsthat are liberated from them. Impaired synthesis orsecretion of pancreatic enzymes or bile may cause anincrease in neutral fats while an increase in split fatssuggests impaired absorption of nutrients.Performed By: [facility] [place] [id number] Director: Anne-Marie Correa MD, PhDCLIA Number: [id number] Performed By: #### F FATQL ####[facility]IESCLIA [id number] [place] [address] Amylase SerPl-cCncon 025 Amylase [Catalytic activity/Vol] 70 U/L Normal 30-104 [facility] Comment on above: Order Comment: Speci men Type: BLOOD SPECIMEN Ordering Facility: [facility] Address: [address] [place] [address] Performed By: #### L [id number], [id number] #### [facility] CLIA [id number] [address] [place] [address] [place] CNPNon 10-23-2024 CNPN Normal [facility] IGG SUBCLASS 1,2,3,4on 10-23 IgG subclass 1 (S) [Mass/Vol] 576.5 mg/dL Normal 382.4-928.6 [facility] Comment on above: Order Comment: Speci men Type: BLOOD SPECIMEN Ordering Facility: [facility] Address: [address] [place] [address] Performed By: #### I [id number] #### [facility] CLIA [id number] [address] [place] [address] [place] IgG subclass 2 (S) [Mass/Vol] 251.2 mg/dL Normal 241.8-700.3 [facility] Comment on above: Order Comment: Speci men Type: BLOOD SPECIMEN Ordering Facility: [facility] Address: [address] [place] [address] Performed By: #### I [id number] #### [facility] CLIA [id number] [address] [place] [address] [place] IgG subclass 3 (S) [Mass/Vol] 50.4 mg/dL Normal 21.8-176.1 [facility] Comment on above: Order Comment: Speci men Type: BLOOD SPECIMEN Ordering Facility: [facility] Address: [address] [place] [address] Performed By: #### I [id number] #### [facility] CLIA [id number] [address] [place] [address] [place] IgG subclass 4 (S) [Mass/Vol] 64.4 mg/dL Normal 3.9-86.4 [facility] Comment on above: Order Comment: Speci men Type: BLOOD SPECIMEN Ordering Facility: [facility] Address: [address] [place] [address] Performed By: #### I G1234 #### [facility] CLIA [id number] [address] [place] [address] [place] IgG SerPl-mCncon 10-23-2024 IgG [Mass/Vol] 1100 mg/dL Normal 700-1600 [facility] Comment on above: Order Comment: Speci men Type: BLOOD SPECIMEN Ordering Facility: [facility] Address: [address] [place] [address] Performed By: #### 2 465-3 #### [facility] CLIA [id number] [address] [place] [address] [place] Lipase SerPl-cCncon 10-24-19 25 Lipase [Catalytic activity/Vol] 55 U/L Normal 16-61 [facility] Comment on above: Order Comment: Speci men Type: BLOOD SPECIMEN Ordering Facility: [facility] Address: [address] [place] [address] Performed By: #### L [id number], [id number] #### [facility] CLIA [id number] [address] [place] [address] [place] US ABD RIGHT UPPER QUADRANTo n 10-23-2024 US ABD RIGHT UPPER QUADRANT * * *Final Report* * * DATE OF EXAM: Oct 23 2024 2:18PM [facility] 1032 - US ABD RIGHT UPPER QUADRANT [...] cm, normal. There are no splenic lesions. IMPRESSION: 1. Mild nodularity of the liver surface, which may be seen with cirrhosis. No focal hepatic lesions. 2. Small volume abdominal ascites. No splenomegaly. Drum Handler: ALONSO Transcribe Date/Time: Oct 26 2024 2:30P Dictated by : SANDRA BELTRE MD This examination was interpreted and the report reviewed and electronically signed by: SANDRA BELTRE MD on Oct 26 2024 2:34PM EST [id number] Normal [facility] ABD SPLEEN -NBon 10-24-19 US ABD SPLEEN -NB * * *Final Report* * * DATE OF EXAM: Oct 23 2024 2:18PM [facility] 1232 - US ABD SPLEEN -NB [...] cm, normal. There are no splenic lesions. IMPRESSION: 1. Mild nodularity of the liver surface, which may be seen with cirrhosis. No focal hepatic lesions. 2. Small volume abdominal ascites. No splenomegaly. Drum Handler: ALONSO Transcribe Date/Time: Oct 26 2024 2:30P Dictated by : SANDRA BELTRE MD This examination was interpreted and the report reviewed and electronically signed by: SANDRA BELTRE MD on Oct 26 2024 2:34PM EST [id number] Normal [facility] US Chest limitedon [facility] ALKALINE PHOSPHATASE ISOENZY MES (P)on 10-15-2024 ALK PHOS BONE % 18.1 % Normal 10.7-68.3 [facility] Comment on above: Order Comment: Speci men Type: BLOOD SPECIMENOrdering Facility: [facility] Address: [address] [place] [address] Performed By: #### A LKISOP ####[facility] LABCLIA [id number] [place] [address] [place] ALK PHOS LIVER % 81.9 % Normal 26.0-86.2 [facility] Comment on above: Order Comment: Speci men Type: BLOOD SPECIMENOrdering Facility: [facility] Address: [address] [place] [address] Performed By: #### A LKISOP ####[facility] LABCLIA [id number] [place] [address] [place] BONE FRACTION 22.6 U/L Normal 12.9-52.6 [facility] Comment on above: Order Comment: Speci men Type: BLOOD SPECIMENOrdering Facility: [facility] Address: [address] [place] [address] Performed By: #### A LKISOP ####[facility] LABCLIA [id number] [place] [address] [place] INTESTINE FRACTION 0.0 U/L Normal 0.0-16.3 [facility] Comment on above: Order Comment: Speci men Type: BLOOD SPECIMENOrdering Facility: [facility] Address: [address] [place] [address] Performed By: #### A LKISOP ####[facility] LABCLIA [id number] [address] [place] LIVER FRACTION 102.4 U/L High 16.0-69.3 [facility] Comment on above: Order Comment: Speci men Type: BLOOD SPECIMENOrdering Facility: [facility] Address: [address] [place] [address] Performed By: #### A LKISOP ####[facility] LABCLIA [id number] [address] [place] Neutrophils/100 WBC (Bld) 0.0 % Normal 0.0-24.2 [facility] Comment on above: Order Comment: Speci men Type: BLOOD SPECIMENOrdering Facility: [facility] Address: [address] [place] [address] Performed By: #### A LKISOP ####[facility] LABCLIA [id number] [place] [address] [place] ALP SerPl-cCncon 10-15-2024 ALP [Catalytic activity/Vol] 125 U/L High 38-113 [facility] Comment on above: Order Comment: Speci men Type: BLOOD SPECIMENOrdering Facility: [facility] Address: [address] [place] [address] Performed By: #### 6 768-6, 91938-4, 11347-3 ####[facility] LABCLIA [id number] [place] [address] [place] CBC W Auto Differential pane l (Bld)on 10-15-2024 Basophils (Bld) [#/Vol] [facility] MARYVALEF [facility] Basophils/100 WBC (Bld) 0.1 % [facility] Differential cell count method Nom (Bld) Auto [facility] Eosinophils (Bld) [#/Vol] [facility] Eosinophils/100 WBC (Bld) 0 % [facility] Erythrocyte distribution width (RBC) [Ratio] 15.5 % High 11.5 - 15.0 % [facility] Hematocrit (Bld) [Volume fraction] 40.7 % 39.0 - 51.0 % [facility] Hemoglobin (Bld) [Mass/Vol] 12.9 g/dL Low 13.0 - 17.0 g/dL [facility] Immature granulocytes (Bld) [#/Vol] 0.09 10*3/uL [facility] Immature granulocytes/100 WBC (Bld) 0.8 % [facility] Interpretation and review of laboratory results Abnormal [facility] Lymphocytes (Bld) [#/Vol] 0.8 10*3/uL Low [facility] Lymphocytes/100 WBC (Bld) 7.2 % [facility] MCH (RBC) [Entitic mass] 31.2 pg 26.0 - 34.0 pg [facility] MCHC (RBC) [Mass/Vol] 31.7 g/dL 30.5 - 36.0 g/dL [facility] MCV (RBC) [Entitic vol] 98.5 fL 80.0 - 100.0 fL [facility] Monocytes (Bld) [#/Vol] 0.81 10*3/uL NINF [facility] Monocytes/100 WBC (Bld) 7.3 % [facility] Neutrophils (Bld) [#/Vol] 9.45 10*3/uL High [facility] Neutrophils/100 WBC (Bld) 84.6 % [facility] Nucleated RBC (Bld) [#/Vol] NINF [facility] Nucleated RBC/100 WBC (Bld) [Ratio] 0 % /100 WBC [facility] Platelet mean volume (Bld) [Entitic vol] 10.5 fL 9.0 - 12.7 fL [facility] Platelets (Bld) [#/Vol] 202 10*3/uL [facility] RBC (Bld) [#/Vol] 4.13 10*6/uL Low 4.20 - 6.0 0 m/uL [facility] WBC (Bld) [#/Vol] 11.16 10*3/uL High [facility] Basophils (Bld) [#/Vol] 10*3/uL Normal <0.11 [facility] Comment on above: Order Comment: Speci men Type: BLOOD SPECIMENOrdering Facility: [facility] Address: [address] [place] [address] Performed By: #### 5 7021-8, 4537-7 ####[facility]IA [id number] [place] [address] [place] Basophils/100 WBC (Bld) 0.1 % Normal [facility] Comment on above: Order Comment: Speci men Type: BLOOD SPECIMENOrdering Facility: [facility] Address: [address] [place] [address] Performed By: #### 5 7021-8, 4537-7 ####[facility]IA [id number] [place] [address] [place] Differential cell count method Nom (Bld) Auto Normal [facility] Comment on above: Order Comment: Speci men Type: BLOOD SPECIMENOrdering Facility: [facility] Address: [address] [place] [address] Performed By: #### 5 7021-8, 4536-7 ####[facility] LABCLIA [id number] [facility] [place] [address] [place] Eosinophils (Bld) [#/Vol] 10*3/uL Normal <0.46 [facility] Comment on above: Order Comment: Speci men Type: BLOOD SPECIMENOrdering Facility: [facility] Address: [address] [place] [address] Performed By: #### 5 7021-8, 4536-7 ####[facility] LABCLIA [id number] [facility] [place] [place] [address] [place] Eosinophils/100 WBC (Bld) 0.0 % Normal [facility] Comment on above: Order Comment: Speci men Type: BLOOD SPECIMENOrdering Facility: [facility] Address: [address] [place] [address] Performed By: #### 5 7021-8, 7 ####[facility] LABCLIA [id number] [place] [address] [place] Erythrocyte distribution width (RBC) [Ratio] 15.5 % High 11.5-15.0 [facility] Comment on above: Order Comment: Speci men Type: BLOOD SPECIMENOrdering Facility: [facility] Address: [address] [place] [address] Performed By: #### 5 7021-8, 7 ####[facility] LABCLIA [id number] [facility] [place] [place] [address] [place] Hematocrit (Bld) [Volume fraction] 40.7 % Normal 39.0-51.0 [facility] Comment on above: Order Comment: Speci men Type: BLOOD SPECIMENOrdering Facility: [facility] Address: [address] [place] [address] Performed By: #### 5 7021-8, 4536-7 ####[facility] LABCLIA [id number] [place] [address] [place] Hemoglobin (Bld) [Mass/Vol] 12.9 g/dL Low 13.0-17.0 [facility] Comment on above: Order Comment: Speci men Type: BLOOD SPECIMENOrdering Facility: [facility] Address: [address] [place] [address] Performed By: #### 5 7021-8, 4537-7 ####[facility] LABCLIA [id number] [place] [address] [place] Immature granulocytes (Bld) [#/Vol] 0.09 10*3/uL Normal <0.10 [facility] Comment on above: Order Comment: Speci men Type: BLOOD SPECIMENOrdering Facility: [facility] Address: [address] [place] [address] Performed By: #### 5 7021-8, 7-7 ####[facility] LABCLIA [id number] [place] [address] [place] Immature granulocytes/100 WBC (Bld) 0.8 % Normal [facility] Comment on above: Order Comment: Speci men Type: BLOOD SPECIMENOrdering Facility: [facility] Address: [address] [place] [address] Performed By: #### 5 7021-8, 7-7 ####[facility] LABCLIA [id number] [place] [address] [place] Lymphocytes (Bld) [#/Vol] 0.80 10*3/uL Low 1.00-4.00 [facility] Comment on above: Order Comment: Speci men Type: BLOOD SPECIMENOrdering Facility: [facility] Address: [address] [place] [address] Performed By: #### 5 7021-8, 7-7 ####[facility] LABCLIA [id number] [place] [address] [place] Lymphocytes/100 WBC (Bld) 7.2 % Normal [facility] Comment on above: Order Comment: Speci men Type: BLOOD SPECIMENOrdering Facility: [facility] Address: [address] [place] [address] Performed By: #### 5 7021-8, 4536-7 ####[facility] LABCLIA [id number] [place] [address] [place] MCH (RBC) [Entitic mass] 31.2 pg Normal 26.0-34.0 [facility] Comment on above: Order Comment: Speci men Type: BLOOD SPECIMENOrdering Facility: [facility] Address: [address] [place] [address] Performed By: #### 5 7021-8, 4536-7 ####[facility] LABCLIA [id number] [place] [address] [place] MCHC (RBC) [Mass/Vol] 31.7 g/dL Normal 30.5-36.0 [facility] Comment on above: Order Comment: Speci men Type: BLOOD SPECIMENOrdering Facility: [facility] Address: [address] [place] [address] Performed By: #### 5 7021-8, 7 ####[facility] LABCLIA [id number] [place] [address] [place] MCV (RBC) [Entitic vol] 98.5 fL Normal 80.0-100.0 [facility] Comment on above: Order Comment: Speci men Type: BLOOD SPECIMENOrdering Facility: [facility] Address: [address] [place] [address] Performed By: #### 5 7021-8, 4536-7 ####[facility] LABCLIA [id number] [place] [address] [place] Monocytes (Bld) [#/Vol] 0.81 10*3/uL Normal <0.87 [facility] Comment on above: Order Comment: Speci men Type: BLOOD SPECIMENOrdering Facility: [facility] Address: [address] [place] [address] Performed By: #### 5 7021-8, 4536-7 ####[facility] LABCLIA [id number] [place] [address] [place] Monocytes/100 WBC (Bld) 7.3 % Normal [facility] Comment on above: Order Comment: Speci men Type: BLOOD SPECIMENOrdering Facility: [facility] Address: [address] [place] [address] Performed By: #### 5 7021-8, 4536-7 ####[facility] LABCLIA [id number] [place] [address] [place] Neutrophils (Bld) [#/Vol] 9.45 10*3/uL High 1.45-7.50 [facility] Comment on above: Order Comment: Speci men Type: BLOOD SPECIMENOrdering Facility: [facility] Address: [address] [place] [address] Performed By: #### 5 7021-8, 4536-7 ####[facility] LABIA [id number] [place] [address] [place] Neutrophils/100 WBC (Bld) 84.6 % Normal [facility] Comment on above: Order Comment: Speci men Type: BLOOD SPECIMENOrdering Facility: [facility] Address: [address] [place] [address] Performed By: #### 5 7021-8, 4536-7 ####[facility] LABCLIA [id number] [place] [address] [place] Nucleated RBC (Bld) [#/Vol] 10*3/uL Normal <0.01 [facility] Comment on above: Order Comment: Speci men Type: BLOOD SPECIMENOrdering Facility: [facility] Address: [address] [place] [address] Performed By: #### 5 7021-8, 7-7 ####[facility] LABCLIA [id number] [address] [address] [place] Nucleated RBC/100 WBC (Bld) [Ratio] 0.0 /100 WBC Normal [facility] Comment on above: Order Comment: Speci men Type: BLOOD SPECIMENOrdering Facility: [facility] Address: [address] [place] [address] Performed By: #### 5 7021-8, 4536-7 ####[facility] LABIA [id number] [place] [id number] [place] Platelet mean volume (Bld) [Entitic vol] 10.5 fL Normal 9.0-12.7 [facility] Comment on above: Order Comment: Speci men Type: BLOOD SPECIMENOrdering Facility: [facility] Address: [address] [place] [address] Performed By: #### 5 7021-8, 4536-7 ####[facility] LABIA [id number] [place] [address] [place] Platelets (Bld) [#/Vol] 202 10*3/uL Normal 150-400 [facility] Comment on above: Order Comment: Speci men Type: BLOOD SPECIMENOrdering Facility: [facility] Address: [address] [place] [address] Performed By: #### 5 7021-8, 4536-7 ####[facility] LABIA [id number] [place] [id number] [place] RBC (Bld) [#/Vol] 4.13 10*6/uL Low 4.20-6.00 [facility] Comment on above: Order Comment: Speci men Type: BLOOD SPECIMENOrdering Facility: [facility] Address: [address] [place] [address] Performed By: #### 5 7021-8, 7-7 ####[facility] LABCLIA [id number] [place] [id number] [place] WBC (Bld) [#/Vol] 11.16 10*3/uL High 3.70-11.00 [facility] Comment on above: Order Comment: Speci men Type: BLOOD SPECIMENOrdering Facility: [facility] Address: [address] [place] [address] Performed By: #### 5 7021-8, 4537-7 ####[facility] LABCLIA [id number] [address] [place] CNOVon 10-15-2024 CNOV Normal [facility] CNPTOUTREACHon 10-15-2024 CNPTOUTREACH Normal [facility] CRP SerPl HS-mCncon 10-16-19 CRP High sensitivity method [Mass/Vol] 13.2 mg/L High <3.1 [facility] Comment on above: Order Comment: Speci men Type: BLOOD SPECIMENOrdering Facility: [facility] Address: [address] [place] [address] Result Comment: hsCR P < 1.0 mg/L, relative risk is lowhsCRP 1.0-3.0 mg/L, relative risk is averagehsCRP > 3.0 mg/L, relative risk is highReference:Roman TA, Wilma GA, Octavio RW, et al. Markers of Inflammation and Cardiovascular Disease. Application to Clinical and Public Health Practice. A Statement for Healthcare Professionals from the Centers for Disease Control and Prevention and the [place] [employer]. Circulation 2003;107:499-511. Performed By: #### 6 768-6, 34574-5, 73455-5 ####[facility] LABCLIA [id number] [address] [place] Comprehensive metabolic 2000 panelon 10-15-2024 Albumin [Mass/Vol] 4.2 g/dL 3.9 - 4.9 g/dL [facility] ALP [Catalytic activity/Vol] 125 U/L High 38 - 113 U/L [facility] ALT [Catalytic activity/Vol] 41 U/L 10 - 54 U/L [facility] Anion gap [Moles/Vol] 14 mmol/L 8 - 15 mmol/L [facility] AST [Catalytic activity/Vol] 53 U/L High 14 - 40 U/L [facility] Bilirubin [Mass/Vol] 0.6 mg/dL 0.2 - 1 .3 mg/dL [facility] Calcium [Mass/Vol] 9.7 mg/dL 8.5 - 10. 2 mg/dL [facility] Chloride [Moles/Vol] 101 mmol/L 98 - 10 7 mmol/L [facility] CO2 [Moles/Vol] 27 mmol/L 22 - 30 mmol/L [facility] Creatinine [Mass/Vol] 1.09 mg/dL 0.73 - 1.22 mg/dL [facility] GFR/1.73 sq M.predicted among non-blacks MDRD (S/P/Bld) [Vol rate/Area] 72 mL/min/{1.73_m2} - PINF [facility] Comment on above: Estimated Glomerular Filtration Rate [...] not accurately reflect actual GFR. Glucose [Mass/Vol] 116 mg/dL High 74 - 99 mg/dL [facility] Comment on above: The [place] Diabete s Association (ADA) provides guidance for [...] Standards of Medical Care in Diabetes 2016, [place] [employer]. Diabetes Care. 2016.39(Suppl 1). Potassium [Moles/Vol] 4.1 mmol/L 3.7 - 5.1 mmol/L [facility] Protein [Mass/Vol] 7.6 g/dL 6.3 - 8.0 g/dL [facility] Sodium [Moles/Vol] 142 mmol/L 136 - 144 mmol/L [facility] Urea nitrogen [Mass/Vol] 35 mg/dL High 9 - 24 mg/dL [facility] Albumin [Mass/Vol] 4.2 g/dL Normal 3.9-4.9 [facility] Comment on above: Order Comment: Speci men Type: BLOOD SPECIMENOrdering Facility: [facility] Address: [address] [place] [address] Performed By: #### 6 768-6, 93219-5, 27956-6 ####[facility] LABIA [id number] [place] [address] [place] ALT [Catalytic activity/Vol] 41 U/L Normal 10-54 [facility] Comment on above: Order Comment: Speci men Type: BLOOD SPECIMENOrdering Facility: [facility] Address: [address] [place] [address] Performed By: #### 6 768-6, 36767-8, 27879-3 ####[facility] LABIA [id number] [place] [address] [place] Anion gap [Moles/Vol] 14 mmol/L Normal 8-15 [facility] Comment on above: Order Comment: Speci men Type: BLOOD SPECIMENOrdering Facility: [facility] Address: [address] [place] [address] Performed By: #### 6 768-6, 98580-3, 88433-2 ####[facility] LABIA [id number] [place] [address] [place] AST [Catalytic activity/Vol] 53 U/L High 14-40 [facility] Comment on above: Order Comment: Speci men Type: BLOOD SPECIMENOrdering Facility: [facility] Address: [address] [place] [address] Performed By: #### 6 768-6, 89209-2, 82486-9 ####[facility] LABCLIA [id number] [address] [address] [place] Bilirubin [Mass/Vol] 0.6 mg/dL Normal 0.2-1.3 [facility] Comment on above: Order Comment: Speci men Type: BLOOD SPECIMENOrdering Facility: [facility] Address: [address] [place] [address] Performed By: #### 6 768-6, 00202-8, 26637-5 ####[facility] LABCLIA [id number] [address] [address] [place] Calcium [Mass/Vol] 9.7 mg/dL Normal 8.5-10.2 [facility] Comment on above: Order Comment: Speci men Type: BLOOD SPECIMENOrdering Facility: [facility] Address: [address] [place] [address] Performed By: #### 6 768-6, 51439-8, ####[facility] LABCLIA [id number] [place] [address] [place] Chloride [Moles/Vol] 101 mmol/L Normal 98-107 [facility] Comment on above: Order Comment: Speci men Type: BLOOD SPECIMENOrdering Facility: [facility] Address: [address] [place], [place] [address] Performed By: #### 6 768-6, 57574-3, ####[facility] LABCLIA [id number] [address] [address] [place] CO2 [Moles/Vol] 27 mmol/L Normal 22-30 [facility] Comment on above: Order Comment: Speci men Type: BLOOD SPECIMENOrdering Facility: [facility] Address: [address] [place], [place] [address] Performed By: #### 6 768-6, 86607-8, 91928-8 ####[facility] LABCLIA [id number] [address] [address] [place] Creatinine [Mass/Vol] 1.09 mg/dL Normal 0.73-1.22 [facility] Comment on above: Order Comment: Alexandru campos Type: BLOOD SPECIMENOrdering Facility: [facility] Address: [address] [place] [address] Performed By: #### 6 768-6, 25042-7, 64847-4 ####[facility] [id number] [place] [address] [place] Creatinine and Glomerular filtration rate.predicted panel (S/P/Bld) 72 mL/min/1.73m??? Normal >=60 [facility] Comment on above: Order Comment: Alexandru campos Type: BLOOD SPECIMENOrdering Facility: [facility] Address: [address] [place] [address] Result Comment: Kristel mated Glomerular Filtration Rate [...] accurately reflect actual GFR. Performed By: #### 6 768-6, 95737-0, 05341-4 ####[facility] [id number] [address] [address] [place] Glucose [Mass/Vol] 116 mg/dL High 74-99 [facility] Comment on above: Order Comment: Alexandru beth Type: BLOOD SPECIMENOrdering Facility: [facility] Address: [address] [place] [address] Result Comment: The [place] Diabetes Association (ADA) provides guidance for cutoff [...] Standards of Medical Care in Diabetes 2016, [place] Diabetes [employer]. Diabetes Care. 2016.39(Suppl 1). Performed By: #### 6 768-6, 05791-9, 23424-3 ####[facility] LABCLIA [id number] [address] [address] [place] Potassium [Moles/Vol] 4.1 mmol/L Normal 3.7-5.1 [facility] Comment on above: Order Comment: Speci men Type: BLOOD SPECIMENOrdering Facility: [facility] Address: [address] [place] [address] Performed By: #### 6 768-6, 92305-5, ####[facility] LABCLIA [id number] [address] [address] [place] Protein [Mass/Vol] 7.6 g/dL Normal 6.3-8.0 [facility] Comment on above: Order Comment: Speci men Type: BLOOD SPECIMENOrdering Facility: [facility] Address: [address] [place] [address] Performed By: #### 6 768-6, 34784-4, ####[facility] LABCLIA [id number] [address] [address] [place] Sodium [Moles/Vol] 142 mmol/L Normal 136-144 [facility] Comment on above: Order Comment: Speci men Type: BLOOD SPECIMENOrdering Facility: [facility] Address: [address] [place] [address] Performed By: #### 6 768-6, 44226-1, 84195-3 ####[facility] LABCLIA [id number] [address] [place] [address] [place] Urea nitrogen [Mass/Vol] 35 mg/dL High 9-24 [facility] Comment on above: Order Comment: Speci men Type: BLOOD SPECIMENOrdering Facility: [facility] Address: [address] [place] [address] Performed By: #### 6 768-6, 45748-4, 38310-7 ####[facility] LABCLIA [id number] [facility] [address] [place] Albumin [Mass/Vol] 4.2 g/dL 3.9 - 4.9 g/dL [facility] ALP [Catalytic activity/Vol] 124 U/L High 38 - 113 U/L [facility] ALT [Catalytic activity/Vol] 40 U/L 10 - 54 U/L [facility] Anion gap [Moles/Vol] 13 mmol/L 8 - 15 mmol/L [facility] AST [Catalytic activity/Vol] 49 U/L High 14 - 40 U/L [facility] Bilirubin [Mass/Vol] 0.7 mg/dL 0.2 - 1 .3 mg/dL [facility] Calcium [Mass/Vol] 9.3 mg/dL 8.5 - 10. 2 mg/dL [facility] Chloride [Moles/Vol] 100 mmol/L 98 - 10 7 mmol/L [facility] CO2 [Moles/Vol] 28 mmol/L 22 - 30 mmol/L [facility] Creatinine [Mass/Vol] 1.13 mg/dL 0.73 - 1.22 mg/dL [facility] GFR/1.73 sq M.predicted among non-blacks MDRD (S/P/Bld) [Vol rate/Area] 69 mL/min/{1.73_m2} - PINF [facility] Comment on above: Estimated Glomerular Filtration Rate (eGFR) is calculated using the 202 CKD-EPI creatinine equation. This equation utilizes serum creatinine, sex, and age as parameters. The creatinine assay has traceable calibration to isotope dilution-mass spectrometry. Refer to KDIGO guidelines for clinical interpretation. In patients with unstable renal function, e.g. those with acute kidney injury, the eGFR may not accurately reflect actual GFR. Glucose [Mass/Vol] 104 mg/dL High 74 - 99 mg/dL [facility] Comment on above: The [place] Diabete s Association (ADA) provides guidance for [...] Standards of Medical Care in Diabetes 2016, [place] Diabetes Association. Diabetes Care. 2016.39(Suppl 1). Potassium [Moles/Vol] 3.8 mmol/L 3.7 - 5.1 mmol/L [facility] Protein [Mass/Vol] 7.5 g/dL 6.3 - 8.0 g/dL [facility] Sodium [Moles/Vol] 141 mmol/L 136 - 144 mmol/L [facility] Urea nitrogen [Mass/Vol] 33 mg/dL High 9 - 24 mg/dL [facility] ESR Westergren method (Bld) [Velocity]on 10-15-2024 ESR (Bld) [Velocity] 34 mm/h High [facility] Interpretation and review of laboratory results Abnormal [facility] ESR (Bld) [Velocity] 34 mm/h High 0-15 [facility] Comment on above: Order Comment: Speci men Type: BLOOD SPECIMENOrdering Facility: [facility] Address: [address] [place] [address] Performed By: #### 5 7021-8, 4537-7 ####[facility] LABCLIA [id number] [place] [address] [place] HIGH SENSITIVITY C-REACTIVE PROTEINon 10-15-2024 CRP High sensitivity method [Mass/Vol] 13.2 mg/L High NINF - 3.1 mg/L [facility] Comment on above: hsCRP < 1.0 mg/L, re lative risk is low hsCRP 1.0-3.0 mg/L, relative risk is average hsCRP > 3.0 mg/L, relative risk is high Reference: Ezra Pachecoah [place], Octavio RW, et al. Markers of Inflammation and Cardiovascular Disease. Application to Clinical and Public Health Practice. A Statement for Healthcare Professionals from the Centers for Disease Control and Prevention and the [place] Heart [employer]. Circulation 2003;107:499-511. Laboratory - Chemistry and C hemistry - challengeon 10-15-2024 Gamma glutamyl transferase [Catalytic activity/Vol] 136 U/L High 10 - 70 U/L [facility] Magnesium [Mass/Vol] 2.2 mg/dL 1.7 - 2 .3 mg/dL [facility] Magnesium [Mass/Vol]on 10-15 Interpretation and review of laboratory results Normal [facility] No Panel Informationon 10-15 Interpretation and review of laboratory results Abnormal [facility] Interpretation and review of laboratory results Abnormal [facility] Prot/Creat Uron 10-15-2024 Protein/Creatinine (U) [Mass ratio] mg/g High <0.15 [facility] Comment on above: Order Comment: Speci men Type: URINE SPECIMENOrdering Facility: [facility] Address: [address] [place] [address] Result Comment: Adul t Proteinuria Categories:<0.15 mg/mg is considered normal to mildly increased0.15 - 0.50 mg/mg is considered moderately increased>0.50 mg/mg is considered severely increasedKDIGO. (2013). KDIGO 2012 Clinical Practice Guideline for the Evaluation and Management of Chronic Kidney Disease. Official Journal of the International Society of Nephrology, 3(1), 1-150. Performed By: #### 2 890-2 ####[facility] LABCLIA [id number] [place] [address] [place] Protein/Creatinine (U) [Mass ratio]on 10-15-2024 Creatinine (U) [Mass/Vol] 12.6 mg/dL Low 20.0-300.0 [facility] Comment on above: Order Comment: Speci men Type: URINE SPECIMENOrdering Facility: [facility] Address: [address] [place] [address] Performed By: #### 2 890-2 ####[facility] LABCLIA [id number] [place] [address] [place] Protein (U) [Mass/Vol] mg/dL Normal 0-20 [facility] Comment on above: Order Comment: Speci men Type: URINE SPECIMENOrdering Facility: [facility] Address: [address] [place] [address] Performed By: #### 2 890-2 ####[facility] LABCLIA [id number] [place] [address] [place] UA DIP, URINE (POC)on 2024 BILIRUBIN UA (POCT) Negative Negative [facility] CLARITY UA (POCT) [facility] COLOR UA (POCT) Light yellow [facility] GLUCOSE UA (POCT) Negative Negative mg/dL [facility] Hemoglobin Ql (U) Negative Negative [facility] KETONE UA (POCT) Negative Negative mg/dL [facility] LEUKOCYTES UA (POCT) Negative Negative [facility] NITRITE UA (POCT) Negative Negative [facility] PH UA (POCT) 7 4.5 - 8.0 [facility] Protein Ql (U) Negative Negative mg/dL [facility] SPECIFIC GRAVITY UA (POCT) 1.015 1.005 - 1.030 [facility] UROBILINOGEN UA (POCT) 0.2 Jolie l E.U./dL [facility] Location:[facility], [address] [place] [address] POINT OF CARE [facility] CBC panel Auto (Bld)on 10-14 Erythrocyte distribution width (RBC) [Ratio] 15.7 % High 11.5 - 15.0 % [facility] Hematocrit (Bld) [Volume fraction] 39.8 % 39.0 - 51.0 % [facility] Hemoglobin (Bld) [Mass/Vol] 13 g/dL 13.0 - 17.0 g/dL [facility] Interpretation and review of laboratory results Abnormal [facility] MCH (RBC) [Entitic mass] 31.9 pg 26.0 - 34.0 pg [facility] MCHC (RBC) [Mass/Vol] 32.7 g/dL 30.5 - 36.0 g/dL [facility] MCV (RBC) [Entitic vol] 97.5 fL 80.0 - 100.0 fL [facility] Nucleated RBC (Bld) [#/Vol] NINF [facility] Platelet mean volume (Bld) [Entitic vol] 10.9 fL 9.0 - 12.7 fL [facility] Platelets (Bld) [#/Vol] 183 10*3/uL [facility] RBC (Bld) [#/Vol] 4.08 10*6/uL Low 4.20 - 6.0 0 m/uL [facility] WBC (Bld) [#/Vol] 7.85 10*3/uL [facility] Erythrocyte distribution width (RBC) [Ratio] 15.7 % High 11.5-15.0 [facility] Comment on above: Order Comment: Speci men Type: BLOOD SPECIMENOrdering Facility: [facility] Address: [address] [place] [address] Performed By: #### 5 8410-2 ####[facility] LABIA [id number] [place] [address] [place] Hematocrit (Bld) [Volume fraction] 39.8 % Normal 39.0-51.0 [facility] Comment on above: Order Comment: Speci men Type: BLOOD SPECIMENOrdering Facility: [facility] Address: [address] [place] [address] Performed By: #### 5 8410-2 ####[facility] LABIA [id number] [place] [address] [place] Hemoglobin (Bld) [Mass/Vol] 13.0 g/dL Normal 13.0-17.0 [facility] Comment on above: Order Comment: Speci men Type: BLOOD SPECIMENOrdering Facility: [facility] Address: [address] [place] [address] Performed By: #### 5 8410-2 ####[facility] LABIA [id number] [place] [address] [place] MCH (RBC) [Entitic mass] 31.9 pg Normal 26.0-34.0 [facility] Comment on above: Order Comment: Speci men Type: BLOOD SPECIMENOrdering Facility: [facility] Address: [address] [place] [address] Performed By: #### 5 8410-2 ####[facility] LABCLIA [id number] [place] [address] [place] MCHC (RBC) [Mass/Vol] 32.7 g/dL Normal 30.5-36.0 [facility] Comment on above: Order Comment: Speci men Type: BLOOD SPECIMENOrdering Facility: [facility] Address: [address] [place] [address] Performed By: #### 5 8410-2 ####[facility] LABCLIA [id number] [place] [address] [place] MCV (RBC) [Entitic vol] 97.5 fL Normal 80.0-100.0 [facility] Comment on above: Order Comment: Speci men Type: BLOOD SPECIMENOrdering Facility: [facility] Address: [address] [place] [address] Performed By: #### 5 8410-2 ####[facility] LABIA [id number] [place] [address] [place] Nucleated RBC (Bld) [#/Vol] 10*3/uL Normal <0.01 [facility] Comment on above: Order Comment: Speci men Type: BLOOD SPECIMENOrdering Facility: [facility] Address: [address] [place] [address] Performed By: #### 5 8410-2 ####[facility] LABCLIA [id number] [place] [address] [place] Platelet mean volume (Bld) [Entitic vol] 10.9 fL Normal 9.0-12.7 [facility] Comment on above: Order Comment: Speci men Type: BLOOD SPECIMENOrdering Facility: [facility] Address: [address] [place] [address] Performed By: #### 5 8410-2 ####[facility] LABIA [id number] [place] [address] [place] Platelets (Bld) [#/Vol] 183 10*3/uL Normal 150-400 [facility] Comment on above: Order Comment: Speci men Type: BLOOD SPECIMENOrdering Facility: [facility] Address: [address] [place] [address] Performed By: #### 5 8410-2 ####[facility] LABIA [id number] [place] [address] [place] RBC (Bld) [#/Vol] 4.08 10*6/uL Low 4.20-6.00 [facility] Comment on above: Order Comment: Speci men Type: BLOOD SPECIMENOrdering Facility: [facility] Address: [address] [place] [address] Performed By: #### 5 8410-2 ####[facility] LABIA [id number] [place] [address] [place] WBC (Bld) [#/Vol] 7.85 10*3/uL Normal 3.70-11.00 [facility] Comment on above: Order Comment: Speci men Type: BLOOD SPECIMENOrdering Facility: [facility] Address: [address] [place] [address] Performed By: #### 5 8410-2 ####[facility] LABIA [id number] [place] [id number] [place] CNOVon 10-14-2024 CNOV Normal [facility] Comprehensive metabolic 2000 panelon 10-14-2024 Albumin [Mass/Vol] 4.2 g/dL Normal 3.9-4.9 [facility] Comment on above: Order Comment: Speci men Type: BLOOD SPECIMENOrdering Facility: [facility] Address: [address] [place] [address] Performed By: #### 2 4323-8, 42443-3, 2323-07 ####[facility] LABCLIA [id number] [place] [id number] [place] ALP [Catalytic activity/Vol] 124 U/L High 38-113 [facility] Comment on above: Order Comment: Speci men Type: BLOOD SPECIMENOrdering Facility: [facility] Address: [address] [place] [address] Performed By: #### 2 4323-8, , 2323-07 ####[facility] LABCLIA [id number] [place] [address] [place] ALT [Catalytic activity/Vol] 40 U/L Normal 10-54 [facility] Comment on above: Order Comment: Speci men Type: BLOOD SPECIMENOrdering Facility: [facility] Address: [address] [place] [address] Performed By: #### 2 432-8, , 2323-07 ####[facility] LABIA [id number] [place] [address] [place] Anion gap [Moles/Vol] 13 mmol/L Normal 8-15 [facility] Comment on above: Order Comment: Speci men Type: BLOOD SPECIMENOrdering Facility: [facility] Address: [address] [place], [place] [address] Performed By: #### 2 4323-8, , 2323-07 ####[facility] LABIA [id number] [address] [address] [place] AST [Catalytic activity/Vol] 49 U/L High 14-40 [facility] Comment on above: Order Comment: Speci men Type: BLOOD SPECIMENOrdering Facility: [facility] Address: [address] [place], [place] [address] Performed By: #### 2 4323-8, , 2323-07 ####[facility] LABCLIA [id number] [address] [address] [place] Bilirubin [Mass/Vol] 0.7 mg/dL Normal 0.2-1.3 [facility] Comment on above: Order Comment: Speci men Type: BLOOD SPECIMENOrdering Facility: [facility] Address: [address] [place], [place] [address] Performed By: #### 2 4322-8, , 2323-07 ####[facility] LABCLIA [id number] [address] [address] [place] Calcium [Mass/Vol] 9.3 mg/dL Normal 8.5-10.2 [facility] Comment on above: Order Comment: Speci men Type: BLOOD SPECIMENOrdering Facility: [facility] Address: [address] [place], [place] [address] Performed By: #### 2 8, , 2323-07 ####[facility] LABCLIA [id number] [address] [address] [place] Chloride [Moles/Vol] 100 mmol/L Normal 98-107 [facility] Comment on above: Order Comment: Speci men Type: BLOOD SPECIMENOrdering Facility: [facility] Address: [address] [place] [address] Performed By: #### 2 4322-8, , 2323-07 ####[facility] LABCLIA [id number] [address] [address] [place] CO2 [Moles/Vol] 28 mmol/L Normal 22-30 [facility] Comment on above: Order Comment: Speci men Type: BLOOD SPECIMENOrdering Facility: [facility] Address: [address] [place] [address] Performed By: #### 2 432-8, , 2323-07 ####[facility] LABCLIA [id number] [address] [address] [place] Creatinine [Mass/Vol] 1.13 mg/dL Normal 0.73-1.22 [facility] Comment on above: Order Comment: Alexandru campos Type: BLOOD SPECIMENOrdering Facility: [facility] Address: [address] [place] [address] Performed By: #### 2 4323-8, , 2323-07 ####[facility] LABIA [id number] [place] [id number] [facility] Creatinine and Glomerular filtration rate.predicted panel (S/P/Bld) 69 mL/min/1.73m??? Normal >=60 [facility] Comment on above: Order Comment: Alexandru campos Type: BLOOD SPECIMENOrdering Facility: [facility] Address: [address] [place] [address] Result Comment: Kristel mated Glomerular Filtration Rate [...] GFR. Performed By: #### 2 4323-8, , 2323-07 ####[facility] LABIA [id number] [place] [id number] [place] Glucose [Mass/Vol] 104 mg/dL High 74-99 [facility] Comment on above: Order Comment: Alexandru campos Type: BLOOD SPECIMENOrdering Facility: [facility] Address: [address] [place] [address] Result Comment: The [place] Diabetes Association (ADA) provides guidance for cutoff [...] Standards of Medical Care in Diabetes 2016, [place] Diabetes [employer]. Diabetes Care. 2016.39(Suppl 1). Performed By: #### 2 4322-8, , 2323-07 ####[facility] LABCLIA [id number] [address] [address] [place] Potassium [Moles/Vol] 3.8 mmol/L Normal 3.7-5.1 [facility] Comment on above: Order Comment: Speci men Type: BLOOD SPECIMENOrdering Facility: [facility] Address: [address] [place] [address] Performed By: #### 2 8, , 2323-07 ####[facility] LABCLIA [id number] [place] [address] [place] Protein [Mass/Vol] 7.5 g/dL Normal 6.3-8.0 [facility] Comment on above: Order Comment: Speci men Type: BLOOD SPECIMENOrdering Facility: [facility] Address: [address] [place], [place] [address] Performed By: #### 2 8, , 2323-07 ####[facility] LABCLIA [id number] [place] [address] [place] Sodium [Moles/Vol] 141 mmol/L Normal 136-144 [facility] Comment on above: Order Comment: Speci men Type: BLOOD SPECIMENOrdering Facility: [facility] Address: [address] [place] [address] Performed By: #### 2 8, , 2323-07 ####[facility] LABCLIA [id number] [address] [address] [place] Urea nitrogen [Mass/Vol] 33 mg/dL High 9-24 [facility] Comment on above: Order Comment: Alexandru campos Type: BLOOD SPECIMENOrdering Facility: [facility] Address: [address] [place] [address] Performed By: #### 2 4323-8, 51124-1, 4-2 ####[facility] LABCLIA [id number] [place] [address] [place] [facility] Gamma glutamyl transferase [Catalytic activity/Vol] 136 U/L High 10-70 [facility] Comment on above: Order Comment: Alexandru campos Type: BLOOD SPECIMENOrdering Facility: [facility] Address: [address] [place] [address] Performed By: #### 2 4323-8, 46030-0, 2323-2 ####[facility] LABCLIA [id number] [address] [place] LDH Fld-[facility] 10-14-2024 LDH (Body fld) [Catalytic activity/Vol] 110 U/L Normal See Comment [facility] Comment on above: Order Comment: Alexandru campos Type: SPECIMEN FROM PLEURA OBTAINED BY THORACENTESISOrdering Facility: [facility] Address: [address] [place] [address] Result Comment: Pleu ral fluids: Pleural fluid [...] document C49A. RAJEEV Bui: Clinical Laboratory Standards Boody: 2007.Reference: 2. Rafael STARK, Fei Doyle. Body [...] to 533. Performed By: #### 2 529-6, 2881-1 ####[facility] LABIA [id number] [place] [address] [place] Magnesium SerPl-[facility] 10-14 Magnesium [Mass/Vol] 2.2 mg/dL Normal 1.7-2.3 [facility] Comment on above: Order Comment: Speci men Type: BLOOD SPECIMENOrdering Facility: [facility] Address: [address] [place] [address] Performed By: #### 2 4323-8, 90336-9, 2324-2 ####[facility] LABCLIA [id number] [place] [address] [place] OPERATIVE NOon 10-14-2024 OPERATIVE NO Normal [facility] Prot Fld-ncon 10-14-2024 Protein (Body fld) [Mass/Vol] 2.5 g/dL Normal See Comment [facility] Comment on above: Order Comment: Speci men Type: SPECIMEN FROM PLEURA OBTAINED BY THORACENTESISOrdering Facility: [facility] Address: [address] [place] [address] Result Comment: Sero us fluids: Effusions are [...] document C49A. RAJEEV Bui: Clinical Laboratory Standards Boody: 2007. Performed By: #### 2 529-6, 2881-1 ####[facility] LABCLIA [id number] [place] [address] [place] US Chest limitedon Radiology Study observation (narrative) [facility] XR CHEST 2V FRONTAL/LATon XR CHEST 2V FRONTAL/LAT Normal [facility] XR Chest PA and Lateralon IMPRESSION: 1. Small located/partially loculated right pleural [...] any questions regarding this interpretation, please call [phone]. If you are unable to reach us at the number above, please feel free to contact [facility] eRadiology at [phone]. DIVISION OF RADIOLOGY * * *Final Report* [...] cardiomediastinal silhouette. Bones and soft tissues: Unremarkable. DIVISION OF RADIOLOGY Provider, Migel Hudson - 10/13/2024 * * *Final Report* * [...] any questions regarding this interpretation, please call [phone]. If you are unable to reach us at the number above, please feel free to contact [facility] eRadiology at [phone]. [facility] Radiology Study observation (narrative) [facility] XR Chest PA and LateralOrder ed By: Ccf Provider on 10-13-2024 [facility] CNPNon 10-10-2024 CNPN Normal [facility] BRIEF OP NOTon 10-02-2024 BRIEF OP NOT Normal [facility] CNPNon 10-02-2024 CNPN Normal [facility] ANES POSTPROC EVALon 025 ANES POSTPROC EVAL Normal [facility] ANES PRE-OPon 09-25-2024 ANES PRE-OP Normal [facility] EGD Study observation Narrat iveon 09-25-2024 [facility] Radiology Study observation (narrative) [facility] HISTORY PHYSICALon HISTORY PHYSICAL Normal [facility] NURSING PROGon 09-25-2024 NURSING PROG Normal [facility] NURSING PROG Normal [facility] Pathology biopsy report Abhijit (Tiss)on 09-25-2024 ADDENDUM 1: Normal [facility] Comment on above: Order Comment: Speci men Type: TISSUE SPECIMENOrdering Facility: [facility] Address: [address] [place] [address] Result Comment: Adde ndum is issued to reflect the result of immunohistochemical stain:- Immunostain for H. pylori is negative in part A.Addendum electronically signed by Simba Frias MD, PhD on 10/01/2024 at 1725 EDT Performed By: #### 6 6121-5 ####[facility] LABIA [id number] [place] [address] [place] AP DISCLAIMER Normal [facility] Comment on above: Order Comment: Speci men Type: TISSUE SPECIMENOrdering Facility: [facility] Address: [address] [place] [address] Result Comment: Haley dominguez Developed Test (LDT) Disclaimer:Performance characteristics of immunohistochemical, immunofluorescent, and chromogenic in-situ hybridization tests have been determined by the performing laboratory within [facility]'s [facility] Pathology and Laboratory Medicine Department ([facility], [facility], [facility], [facility], [facility], [facility], or [facility]) in a manner consistent with CLIA requirements. One or more of these tests may not have been cleared or approved by the FDA. [facility] is regulated under CLIA as qualified to perform high-complexity testing. These tests are used for clinical purposes. These should not be regarded as investigational or for research. Positive and negative controls stain appropriately. Performed By: #### 6 6121-5 ####[facility] LABCLIA [id number] [place] [address] [place] CASE REPORT Normal [facility] Comment on above: Order Comment: Speci men Type: TISSUE SPECIMENOrdering Facility: [facility] Address: [address] [place] [address] Result Comment: Surg [facility] Pathology Report Case: [id number] Provider: Shay Dennis MD Collected: 09/25/2024 11:32 AMOrdering Location: Gastroenterology Received: 09/25/2024 04:32 PMPathologist: Simba Frias MD, PhDSpecimen: Stomach, Biopsy, R/O: H. Pylori Performed By: #### 6 6121-5 ####[facility] LABCLIA [id number] [place] [address] [place] FINAL DIAGNOSIS Normal [facility] Comment on above: Order Comment: Speci men Type: TISSUE SPECIMENOrdering Facility: [facility] Address: [address] [place] [address] Result Comment: A. Grecia martach, biopsy:- Chronic focally active gastritis and reactive gastropathy in antral and oxyntic mucosa.- Negative for intestinal metaplasia or dysplasia.- H. pylori immunostain will be reported as an addendum. at 1344 EDT Performed By: #### 6 6121-5 ####[facility] LABCLIA [id number] [address] [place] FINAL PERFORMING LAB Normal [facility] Comment on above: Order Comment: Speci men Type: TISSUE SPECIMENOrdering Facility: [facility] Address: [address] [place] [address] Result Comment: Diag nostic interpretation performed at: [facility], [address] [place], [place] [address] CLIA# [id number] Director: Ramos Strickland MD Performed By: #### 6 6121-5 ####[facility] LABCLIA [id number] [address] [address] [place] GROSS DESCRIPTION Normal [facility] Comment on above: Order Comment: Speci men Type: TISSUE SPECIMENOrdering Facility: [facility] Address: [address] [place] [address] Result Comment: Yanira. Grecia denson, BiopsyReceived in formalin are multiple pieces of de la garza, soft tissue aggregating to 1.9 x 0.3 x 0.2 cm. Totally submitted in one cassette.Gross examination performed at [facility], [address] [place] [address] September 25, 2024 6:03 PM Performed By: #### 6 6121-5 ####[facility] LABCLIA [id number] [address] OF [facility] Upper GI endoscopyon 025 Upper GI endoscopy Normal [facility] CNPNon 09-23-2024 CNPN Normal [facility] NURSING PROGon 09-18-2024 NURSING PROG Normal [facility] CNPNon 09-14-2024 CNPN Normal [facility] Basic metabolic 2000 panelon 09-11-2024 Anion gap [Moles/Vol] 13 mmol/L Normal 8-15 [facility] Comment on above: Order Comment: Speci men Type: BLOOD SPECIMENOrdering Facility: [facility] Address: [address] [place] [address] Performed By: #### 2 4321-2 ####[facility] LABCLIA [id number] [place] [address] Calcium [Mass/Vol] 9.2 mg/dL Normal 8.5-10.2 [facility] Comment on above: Order Comment: Speci men Type: BLOOD SPECIMENOrdering Facility: [facility] Address: [address] [place] [address] Performed By: #### 2 4321-2 ####[facility] LABCLIA [id number] [place] [address] Chloride [Moles/Vol] 100 mmol/L Normal 98-107 [facility] Comment on above: Order Comment: Speci men Type: BLOOD SPECIMENOrdering Facility: [facility] Address: [address] [place] [address] [place] [address] Performed By: #### 2 4321-2 ####[facility] LABCLIA [id number] [place] [address] CO2 [Moles/Vol] 24 mmol/L Normal 22-30 [facility] Comment on above: Order Comment: Speci men Type: BLOOD SPECIMENOrdering Facility: [facility] Address: [address] [place] [address] Performed By: #### 2 4321-2 ####[facility] LABCLIA [id number] [place] [address] Creatinine [Mass/Vol] 1.71 mg/dL High 0.73-1.22 [facility] Comment on above: Order Comment: Speci men Type: BLOOD SPECIMENOrdering Facility: [facility] Address: [address] [place] [address] Performed By: #### 2 4321-2 ####[facility] LABCLIA [id number] [place] [address] Creatinine and Glomerular filtration rate.predicted panel (S/P/Bld) 42 mL/min/1.73m??? Low >=60 [facility] Comment on above: Order Comment: Speci men Type: BLOOD SPECIMENOrdering Facility: [facility] Address: [address] [place] [address] Result Comment: Kristel mated Glomerular Filtration Rate [...] actual GFR. Performed By: #### 2 4321-2 ####[facility] LABCLIA [id number] [place] [address] Glucose [Mass/Vol] 107 mg/dL High 74-99 [facility] Comment on above: Order Comment: Speci men Type: BLOOD SPECIMENOrdering Facility: [facility] Address: [address] [place] [id number] Result Comment: The [place] Diabetes Association (ADA) provides guidance for cutoff [...] Standards of Medical Care in Diabetes 2016, [place] Diabetes Association. Diabetes Care. 2016.39(Suppl 1). Performed By: #### 2 4321-2 ####[facility] LABCLIA [id number] [place] [address] Potassium [Moles/Vol] 4.9 mmol/L Normal 3.7-5.1 [facility] Comment on above: Order Comment: Speci men Type: BLOOD SPECIMENOrdering Facility: [facility] Address: [address] [place] [address] Performed By: #### 2 4321-2 ####[facility] LABCLIA [id number] [place] [address] Sodium [Moles/Vol] 137 mmol/L Normal 136-144 [facility] Comment on above: Order Comment: Speci men Type: BLOOD SPECIMENOrdering Facility: [facility] Address: [address] [place] [address] Performed By: #### 2 4321-2 ####[facility] LABCLIA [id number] [place] [address] Urea nitrogen [Mass/Vol] 53 mg/dL High 9-24 [facility] Comment on above: Order Comment: Speci men Type: BLOOD SPECIMENOrdering Facility: [facility] Address: [address] [place], [place] [address] Performed By: #### 2 4321-2 ####[facility] LABCLIA [id number] [place] [address] CBC panel Auto (Bld)on 09-11 Erythrocyte distribution width (RBC) [Ratio] 15.8 % High 11.5-15.0 [facility] Comment on above: Order Comment: Speci men Type: BLOOD SPECIMENOrdering Facility: [facility] Address: [address] [place] [address] Performed By: #### 5 8410-2 ####[facility] LABCLIA [id number] [place] [address] Hematocrit (Bld) [Volume fraction] 37.8 % Low 39.0-51.0 [facility] Comment on above: Order Comment: Speci men Type: BLOOD SPECIMENOrdering Facility: [facility] Address: [address] [place] [address] Performed By: #### 5 8410-2 ####[facility] LABIA [id number] [place] [address] Hemoglobin (Bld) [Mass/Vol] 12.0 g/dL Low 13.0-17.0 [facility] Comment on above: Order Comment: Speci men Type: BLOOD SPECIMENOrdering Facility: [facility] Address: [address] [place] [address] Performed By: #### 5 8410-2 ####[facility] LABCLIA [id number] [place] [address] MCH (RBC) [Entitic mass] 31.3 pg Normal 26.0-34.0 [facility] Comment on above: Order Comment: Speci men Type: BLOOD SPECIMENOrdering Facility: [facility] Address: [address] [place] [address] Performed By: #### 5 8410-2 ####[facility] LABCLIA [id number] [place] [address] MCHC (RBC) [Mass/Vol] 31.7 g/dL Normal 30.5-36.0 [facility] Comment on above: Order Comment: Speci men Type: BLOOD SPECIMENOrdering Facility: [facility] Address: [address] [place] [address] Performed By: #### 5 8410-2 ####[facility] LABCLIA [id number] [place] [address] MCV (RBC) [Entitic vol] 98.4 fL Normal 80.0-100.0 [facility] Comment on above: Order Comment: Speci men Type: BLOOD SPECIMENOrdering Facility: [facility] Address: [address] [place] [address] Performed By: #### 5 8410-2 ####[facility] LABCLIA [id number] [place] [address] Nucleated RBC (Bld) [#/Vol] 10*3/uL Normal <0.01 [facility] Comment on above: Order Comment: Speci men Type: BLOOD SPECIMENOrdering Facility: [facility] Address: [address] [place] [address] Performed By: #### 5 8410-2 ####[facility] LABCLIA [id number] [place] [address] Platelet mean volume (Bld) [Entitic vol] 9.9 fL Normal 9.0-12.7 [facility] Comment on above: Order Comment: Speci men Type: BLOOD SPECIMENOrdering Facility: [facility] Address: [address] [place] [address] Performed By: #### 5 8410-2 ####[facility] LABIA [id number] [place] [address] Platelets (Bld) [#/Vol] 250 10*3/uL Normal 150-400 [facility] Comment on above: Order Comment: Speci men Type: BLOOD SPECIMENOrdering Facility: [facility] Address: [address] [place] [address] Performed By: #### 5 8410-2 ####[facility] LABCLIA [id number] [place] [address] RBC (Bld) [#/Vol] 3.84 10*6/uL Low 4.20-6.00 [facility] Comment on above: Order Comment: Speci men Type: BLOOD SPECIMENOrdering Facility: [facility] Address: [address] [place], [place] [address] Performed By: #### 5 8410-2 ####[facility] LABCLIA [id number] [place] [address] WBC (Bld) [#/Vol] 11.59 10*3/uL High 3.70-11.00 [facility] Comment on above: Order Comment: Speci men Type: BLOOD SPECIMENOrdering Facility: [facility] Address: [address] [place] [address] Performed By: #### 5 8410-2 ####[facility] LABCLIA [id number] [place] [address] CNPNon 09-04-2024 CNPN Normal [facility] OPERATIVE NOon 09-04-2024 OPERATIVE NO Normal [facility] Comprehensive metabolic 2000 panelon 09-03-2024 Albumin [Mass/Vol] 4.1 g/dL Normal 3.9-4.9 [facility] Comment on above: Order Comment: Speci men Type: BLOOD SPECIMENOrdering Facility: [facility] Address: [address] [place], [place] [address] Performed By: #### 1 9123-9, 77519-3 ####[facility] LABCLIA [id number] [place] [address] ALP [Catalytic activity/Vol] 140 U/L High 38-113 [facility] Comment on above: Order Comment: Speci men Type: BLOOD SPECIMENOrdering Facility: [facility] Address: [address] [place] [address] Performed By: #### 1 9123-9, 91115-7 ####[facility] LABCLIA [id number] [place] [address] ALT [Catalytic activity/Vol] 12 U/L Normal 10-54 [facility] Comment on above: Order Comment: Speci men Type: BLOOD SPECIMENOrdering Facility: [facility] Address: [address] [place] [address] Performed By: #### 1 9123-9, 49461-4 ####[facility] LABCLIA [id number] [place] [address] Anion gap [Moles/Vol] 18 mmol/L High 8-15 [facility] Comment on above: Order Comment: Speci men Type: BLOOD SPECIMENOrdering Facility: [facility] Address: [address] [place] [address] Performed By: #### 1 91239, ####[facility] LABCLIA [id number] [place] [address] AST [Catalytic activity/Vol] 27 U/L Normal 14-40 [facility] Comment on above: Order Comment: Speci men Type: BLOOD SPECIMENOrdering Facility: [facility] Address: [address] [place] [address] Performed By: #### 1 9123-9, 85113-6 ####[facility] LABCLIA [id number] [place] [address] Bilirubin [Mass/Vol] 0.6 mg/dL Normal 0.2-1.3 [facility] Comment on above: Order Comment: Speci men Type: BLOOD SPECIMENOrdering Facility: [facility] Address: [address] [place] [address] Performed By: #### 1 9123-9, 12204-3 ####[facility] LABCLIA [id number] [place] [address] Calcium [Mass/Vol] 9.1 mg/dL Normal 8.5-10.2 [facility] Comment on above: Order Comment: Speci men Type: BLOOD SPECIMENOrdering Facility: [facility] Address: [address] [place] [address] Performed By: #### 1 9123-9, 41725-7 ####[facility] LABCLIA [id number] [place] [address] Chloride [Moles/Vol] 96 mmol/L Low 98-107 [facility] Comment on above: Order Comment: Speci men Type: BLOOD SPECIMENOrdering Facility: [facility] Address: [address] [place] [address] Performed By: #### 1 9123-9, 18553-3 ####[facility] LABCLIA [id number] [place] [address] CO2 [Moles/Vol] 28 mmol/L Normal 22-30 [facility] Comment on above: Order Comment: Speci men Type: BLOOD SPECIMENOrdering Facility: [facility] Address: [address] [place] [address] Performed By: #### 1 9123-9, 53715-3 ####[facility] LABCLIA [id number] [place] [address] Creatinine [Mass/Vol] 1.72 mg/dL High 0.73-1.22 [facility] Comment on above: Order Comment: Speci men Type: BLOOD SPECIMENOrdering Facility: [facility] Address: [address] [place] [address] Performed By: #### 1 9123-9, 09878-2 ####[facility] LABCLIA [id number] [place] [address] Creatinine and Glomerular filtration rate.predicted panel (S/P/Bld) 41 mL/min/1.73m??? Low >=60 [facility] Comment on above: Order Comment: Speci men Type: BLOOD SPECIMENOrdering Facility: [facility] Address: [address] [place] [address] Result Comment: Kristel mated Glomerular Filtration Rate [...] actual GFR. Performed By: #### 1 9123-9, 36482-2 ####[facility] LABCLIA [id number] [place] [address] Glucose [Mass/Vol] 189 mg/dL High 74-99 [facility] Comment on above: Order Comment: Alexandru campos Type: BLOOD SPECIMENOrdering Facility: [facility] Address: [address] [place] [address] Result Comment: The [place] Diabetes Association (ADA) provides guidance for cutoff [...] Standards of Medical Care in Diabetes 2016, [place] Diabetes Association. Diabetes Care. 2016.39(Suppl 1). Performed By: #### 1 9123-9, 92181-3 ####[facility] LABCLIA [id number] [place] [address] Potassium [Moles/Vol] 3.1 mmol/L Low 3.7-5.1 [facility] Comment on above: Order Comment: Alexandru campos Type: BLOOD SPECIMENOrdering Facility: [facility] Address: [address] [id number] Performed By: #### 1 9123-9, 72505-4 ####[facility] LABCLIA [id number] [place] [address] Protein [Mass/Vol] 7.4 g/dL Normal 6.3-8.0 [facility] Comment on above: Order Comment: Speci men Type: BLOOD SPECIMENOrdering Facility: [facility] Address: [address] [place] [address] Performed By: #### 1 9123-9, 25763-4 ####[facility] LABCLIA [id number] [place] [address] Sodium [Moles/Vol] 142 mmol/L Normal 136-144 [facility] Comment on above: Order Comment: Speci men Type: BLOOD SPECIMENOrdering Facility: [facility] Address: [address] [place] [address] Performed By: #### 1 9123-9, 31616-1 ####[facility] LABCLIA [id number] [place] [address] Urea nitrogen [Mass/Vol] 45 mg/dL High 9-24 [facility] Comment on above: Order Comment: Speci men Type: BLOOD SPECIMENOrdering Facility: [facility] Address: [address] [place] [address] Performed By: #### 1 9123-9, 93658-5 ####[facility] LABCLIA [id number] [place] [address] Laboratory - Chemistry and C hemistry - challengeon 09-03-2024 Albumin [Mass/Vol] 4.1 g/dL 3.9-4.9 [facility] ALP [Catalytic activity/Vol] 140 U/L High 38-113 [facility] ALT [Catalytic activity/Vol] 12 U/L 10-54 [facility] AST [Catalytic activity/Vol] 27 U/L 14-40 [facility] Bilirubin [Mass/Vol] 0.6 mg/dL 0.2-1.3 [facility] Calcium [Mass/Vol] 9.1 mg/dL 8.5-10.2 [facility] Chloride [Moles/Vol] 96 mmol/L Low 98-107 [facility] CO2 [Moles/Vol] 28 mmol/L 22-30 [facility] Creatinine [Mass/Vol] 1.72 mg/dL High 0.73-1.22 [facility] Glucose [Mass/Vol] 189 mg/dL High 74-99 [facility] Comment on above: The [place] Diabete s Association (ADA) provides guidance for [...] Standards of Medical Care in Diabetes 2016, [place] Diabetes Association. Diabetes Care. 2016.39(Suppl 1). Magnesium [Mass/Vol] 2.2 mg/dL 1.7-2.3 [facility] Potassium [Moles/Vol] 3.1 mmol/L Low 3.7-5.1 [facility] Sodium [Moles/Vol] 142 mmol/L 136-144 [facility] Urea nitrogen [Mass/Vol] 45 mg/dL High 9-24 [facility] Magnesium SerPl-mCncon 09-03 Magnesium [Mass/Vol] 2.2 mg/dL Normal 1.7-2.3 [facility] Comment on above: Order Comment: Speci men Type: BLOOD SPECIMENOrdering Facility: [facility] Address: [address] [place] [address] Performed By: #### 1 9123-9, 82439-2 ####[facility] LABCLIA [id number] [place] [address] No Panel Informationon 09-03 Estimated GFR (CKD-EPI) 41 mL/min/1.73m??? Low >=60 [facility] Comment on above: Estimated Glomerular Filtration Rate (eGFR) is calculated using the 2020 CKD-EPI creatinine equation. This equation utilizes serum creatinine, sex, and age as parameters. The creatinine assay has traceable calibration to isotope dilution-mass spectrometry. Refer to KDIGO guidelines for clinical interpretation. In patients with unstable renal function, e.g. those with acute kidney injury, the eGFR may not accurately reflect actual GFR. Protein [Mass/volume] in Ser um or Plasmaon 09-03-2024 Protein [Mass/Vol] Protein [Mass/volume ] in Serum or Plasma 6.3-8.0 [facility] Serum or plasma anion gap de terminationon 09-03-2024 Anion gap [Moles/Vol] Serum or plasma an ion gap determination High 8-15 [facility] CNPNon 09-02-2024 CNPN Normal [facility] Basophils Auto (Bld) [#/Vol] on 08-31-2024 Basophils (Bld) [#/Vol] Automated basophil count 0.0-0.1 [facility] Basophils/100 WBC Auto (Bld) on 08-31-2024 Basophils/100 WBC (Bld) Automated basophil % 0.2-2.0 [facility] Eosinophils/100 WBC Auto (Bl d)on 08-31-2024 Eosinophils/100 WBC (Bld) Automated eosinophil % Low 0.9-7.0 [facility] Erythrocyte distribution wid th Auto (RBC) [Ratio]on 08-31-2024 Erythrocyte distribution width (RBC) [Ratio] Erythrocyte distribution width [Ratio] by Automated count High 11.0-15.0 [facility] Estimated glomerular filtrat ion rate (GFR) non- Americanon 08-31-2024 GFR/1.73 sq M.predicted among non-blacks MDRD (S/P/Bld) [Vol rate/Area] Estimated glomerular filtration rate (GFR) non- Low >=60 mL/min/1.73 m 2 [facility] Globulin Calc (S) [Mass/Vol] on 08-31-2024 Globulin (S) [Mass/Vol] Serum globulin measurement by calculation (mass/volume) [facility] Hematocrit Auto (Bld) [Volum e fraction]on 03-17-2025 Hematocrit (Bld) [Volume fraction] Hematocrit [Volume Fraction] of Blood by Automated count Low 42.0-54.0 [facility] Hemoglobin [Mass/volume] in Bloodon 08-31-2024 Hemoglobin (Bld) [Mass/Vol] Hemoglobin [Mass/volume] in Blood Low 14.0-18.0 [facility] Laboratory - Chemistry and C hemistry - challengeon 08-31-2024 Potassium [Moles/Vol] 3.4 mmol/L Low 3.5-5.1 [facility] Albumin [Mass/Vol] 3.3 g/dL Low 3.4-5.0 [facility] ALP [Catalytic activity/Vol] 130 U/L High 46-116 [facility] ALT [Catalytic activity/Vol] 13 U/L Low 16-63 [facility] AST [Catalytic activity/Vol] 25 U/L 15-37 [facility] Bilirubin [Mass/Vol] 0.7 mg/dL 0.2-1.0 [facility] Calcium [Mass/Vol] 9.0 mg/dL 8.5-10.1 [facility] Chloride [Moles/Vol] 101 mmol/L 98-107 [facility] CO2 [Moles/Vol] 34.5 mmol/L High 21.0-32.0 [facility] Creatinine [Mass/Vol] 1.68 mg/dL High 0.70-1.30 [facility] GFR/1.73 sq M.predicted MDRD (S/P/Bld) [Vol rate/Area] 49 mL/min/{1.73_m2} Low >=60 mL/min/1.73 m 2 [facility] Glucose [Mass/Vol] 113 mg/dL High 74-106 [facility] Magnesium [Mass/Vol] 2.2 mg/dL 1.8-2.4 [facility] Protein [Mass/Vol] 7.7 g/dL 6.4-8.2 [facility] Sodium [Moles/Vol] 143 mmol/L 136-145 [facility] Urea nitrogen [Mass/Vol] 48.0 mg/dL High 7.0-18.0 [facility] Urea nitrogen/Creatinine [Mass ratio] 28.6 mg/mg [facility] Laboratory - Hematology and Cell countson 08-31-2024 Immature granulocytes/100 WBC (Bld) 0.5 % 0.0-0.5 [facility] Leukocytes [#/volume] correc prerna for nucleated erythrocytes in Blood by Automated counon 08-31-2024 WBC corrected for nucl RBC Auto (Bld) [#/Vol] Leukocytes [#/volume] corrected for nucleated erythrocytes in Blood by Automated coun 4.0-11.0 [facility] Lymphocytes Auto (Bld) [#/Vo l]on 08-31-2024 Lymphocytes (Bld) [#/Vol] Lymphocytes [#/volume] in Blood by Automated count Low 1.2-3.8 [facility] Lymphocytes/100 WBC Auto (Bl d)on 08-31-2024 Lymphocytes/100 WBC (Bld) Lymphocytes/100 leukocytes in Blood by Automated count Low 20.5-60.0 [facility] MCH Auto (RBC) [Entitic mass ]on 08-31-2024 MCH (RBC) [Entitic mass] MCH [Entitic mass] by Automated count 25.9-34.0 [facility] MCHC Auto (RBC) [Mass/Vol]on 08-31-2024 MCHC (RBC) [Mass/Vol] MCHC [Mass/volume] by Automated count 29.9-35.2 [facility] MCV Auto (RBC) [Entitic vol] on 08-31-2024 MCV (RBC) [Entitic vol] MCV [Entitic volume] by Automated count High 80.0-94.0 [facility] Monocytes Auto (Bld) [#/Vol] on 08-31-2024 Monocytes (Bld) [#/Vol] Automated blood monocyte count High 0.3-0.8 [facility] Monocytes/100 WBC Auto (Bld) on 08-31-2024 Monocytes/100 WBC (Bld) Automated monocyte % High 1.7-12.0 [facility] Neutrophils Auto (Bld) [#/Vo l]on 08-31-2024 Neutrophils (Bld) [#/Vol] Neutrophils [#/volume] in Blood by Automated count 1.4-6.5 [facility] Neutrophils/100 WBC Auto (Bl d)on 08-31-2024 Neutrophils/100 WBC (Bld) Automated neutrophil % 43.0-75.0 [facility] No Panel Informationon 08-31 Eosinophils # (Auto) 0.0 10 3/uL 0.0-0.7 [facility] Immature Granulocyte # (Auto) 0.03 10 3/uL 0.00-0.03 [facility] Platelet mean volume Auto (B ld) [Entitic vol]on 08-31-2024 Platelet mean volume (Bld) [Entitic vol] Platelet mean volume [Entitic volume] in Blood by Automated count 9.5-13.5 [facility] Platelets Auto (Bld) [#/Vol] on 08-31-2024 Platelets (Bld) [#/Vol] Platelets [#/volume] in Blood by Automated count 150-450 [facility] RBC Auto (Bld) [#/Vol]on RBC (Bld) [#/Vol] Erythrocytes [#/volu me] in Blood by Automated count Low 4.70-6.10 [facility] Serum or plasma albumin/glob ulin mass ratioon 08-31-2024 Albumin/Globulin [Mass ratio] Serum or plasma albumin/globulin mass ratio [facility] Serum or plasma anion gap de terminationon 08-31-2024 Anion gap [Moles/Vol] Serum or plasma an ion gap determination [facility] Activated partial thrombopla stin time (aPTT) in platelet poor plasma by coagulation aon 08-30-2024 aPTT Coag (PPP) [Time] Activated partial thromboplastin time (aPTT) in platelet poor plasma by coagulation a 22.3-36.2 [facility] Basophils Auto (Bld) [#/Vol] on 08-30-2024 Basophils (Bld) [#/Vol] Automated basophil count 0.0-0.1 [facility] Basophils/100 WBC Auto (Bld) on 08-30-2024 Basophils/100 WBC (Bld) Automated basophil % 0.2-2.0 [facility] Eosinophils/100 WBC Auto (Bl d)on 03-16-2025 Eosinophils/100 WBC (Bld) Automated eosinophil % Low 0.9-7.0 [facility] Erythrocyte distribution wid th Auto (RBC) [Ratio]on 08-30-2024 Erythrocyte distribution width (RBC) [Ratio] Erythrocyte distribution width [Ratio] by Automated count High 11.0-15.0 [facility] Hematocrit Auto (Bld) [Volum e fraction]on 08-30-2024 Hematocrit (Bld) [Volume fraction] Hematocrit [Volume Fraction] of Blood by Automated count Low 42.0-54.0 [facility] Hemoglobin [Mass/volume] in Bloodon 08-30-2024 Hemoglobin (Bld) [Mass/Vol] Hemoglobin [Mass/volume] in Blood Low 14.0-18.0 [facility] INR in Platelet poor plasma by Coagulation assayon 08-30-2024 INR Coag (PPP) [Relative time] INR in Platelet poor plasma by Coagulation assay [facility] Comment on above: DESIRED INR:2.0-3.0 CONDITIONS NOT LISTED BELOW2.5-3.5 FOR PROSTHETIC HEART VALVE REPLACEMENT2.5-3.5 RECURRENT THROMBOSIS Laboratory - Chemistry and C hemistry - challengeon 08-30-2024 Bilirubin Ql (U) Negative NEGATIVE [facility] Glucose (U) [Mass/Vol] Negative NEGATIVE [facility] Ketones Ql (U) Negative NEGATIVE [facility] pH (U) 6.5 [pH] 5.0-9.0 [facility] Specific gravity (U) [Rel density] <=1.005 Abnormal 1.005-1.025 [facility] Urobilinogen Qn (U) 0.2 {Guido'U}/dL 0.2-1.0 [facility] Natriuretic peptide B (Bld) [Mass/Vol] 239.0 pg/mL <=900.0 [facility] Laboratory - Hematology and Cell countson 08-30-2024 Immature granulocytes/100 WBC (Bld) 0.5 % 0.0-0.5 [facility] Laboratory - Microbiology an d Antimicrobial susceptibilityon 08-30-2024 SARS-CoV-2 (COVID-19) RNA BRYN+probe Ql (Unsp spec) Negative NEGATIVE [facility] Comment on above: This test has not [...] declaration isterminated or authorization is revoked sooner. Laboratory - Specimen inform ationon 08-30-2024 Appearance (U) CLEAR CLEAR [facility] Color (U) LT. YELLOW YELLOW [facility] Laboratory - Urinalysison Leukocyte esterase Test strip Ql (U) Negative NEGATIVE [facility] Mucus Ql (Urine sed) NONE SEEN NONE SEEN [facility] Nitrite Ql (U) Negative NEGATIVE [facility] Protein Ql (U) Negative NEG/TRACE [facility] Leukocytes [#/volume] correc prerna for nucleated erythrocytes in Blood by Automated counon 08-30-2024 WBC corrected for nucl RBC Auto (Bld) [#/Vol] Leukocytes [#/volume] corrected for nucleated erythrocytes in Blood by Automated coun 4.0-11.0 [facility] Lymphocytes Auto (Bld) [#/Vo l]on 08-30-2024 Lymphocytes (Bld) [#/Vol] Lymphocytes [#/volume] in Blood by Automated count 1.2-3.8 [facility] Lymphocytes/100 WBC Auto (Bl d)on 08-30-2024 Lymphocytes/100 WBC (Bld) Lymphocytes/100 leukocytes in Blood by Automated count Low 20.5-60.0 [facility] MCH Auto (RBC) [Entitic mass ]on 08-30-2024 MCH (RBC) [Entitic mass] MCH [Entitic mass] by Automated count 25.9-34.0 [facility] MCHC Auto (RBC) [Mass/Vol]on 08-30-2024 MCHC (RBC) [Mass/Vol] MCHC [Mass/volume] by Automated count 29.9-35.2 [facility] MCV Auto (RBC) [Entitic vol] on 08-30-2024 MCV (RBC) [Entitic vol] MCV [Entitic volume] by Automated count High 80.0-94.0 [facility] Monocytes Auto (Bld) [#/Vol] on 08-30-2024 Monocytes (Bld) [#/Vol] Automated blood monocyte count High 0.3-0.8 [facility] Monocytes/100 WBC Auto (Bld) on 08-30-2024 Monocytes/100 WBC (Bld) Automated monocyte % 1.7-12.0 [facility] Neutrophils Auto (Bld) [#/Vo l]on 08-30-2024 Neutrophils (Bld) [#/Vol] Neutrophils [#/volume] in Blood by Automated count 1.4-6.5 [facility] Neutrophils/100 WBC Auto (Bl d)on 08-30-2024 Neutrophils/100 WBC (Bld) Automated neutrophil % 43.0-75.0 [facility] No Panel Informationon 08-30 Urine Bacteria NONE SEEN #/HPF NONE SEEN [facility] Urine Culture Reflexed NO [facility] Urine Occult Blood Negative NEGATIVE [facility] Urine Other Casts NONE SEEN #/LPF NONE SEEN [facility] Urine Other Crystals None Seen #/HPF None Seen [facility] Urine RBC 0-2 #/HPF 0-2 [facility] Urine Squamous Epithelial Cells NONE SEEN #/LPF NONE/RARE [facility] Urine WBC NONE SEEN #/HPF NONE SEEN [facility] Bedside Influenza Type A Antigen Negative [facility] Comment on above: Negative for Flu A p rotein antigen. Infection due to Flu Acannot be ruled out. Flu A antigen in the sample may bebelow the detection limit of the test. Bedside Influenza Type B Antigen Negative [facility] Comment on above: Negative for Flu B p rotein antigen. Infection due to Flu Bcannot be ruled out. Flu B antigen in the sample may bebelow the detection limit of the test. C-Reactive Protein, Quantitative 4.85 mg/dL High <=0.50 [facility] Eosinophils # (Auto) 0.0 10 3/uL 0.0-0.7 [facility] Immature Granulocyte # (Auto) 0.04 10 3/uL High 0.00-0.03 [facility] Troponin I High Sensitivity 10.0 pg/mL 4.0-76.1 [facility] Comment on above: CUT-OFF POINTS HAVE BEEN [...] IN CONJUNCTIONWITH OTHER DIAGNOSTIC AND CLINICAL INFORMATION. Platelet mean volume Auto (B ld) [Entitic vol]on 08-30-2024 Platelet mean volume (Bld) [Entitic vol] Platelet mean volume [Entitic volume] in Blood by Automated count 9.5-13.5 [facility] Platelets Auto (Bld) [#/Vol] on 08-30-2024 Platelets (Bld) [#/Vol] Platelets [#/volume] in Blood by Automated count 150-450 [facility] Prothrombin time (PT)on 08-15 PT Coag (PPP) [Time] Prothrombin time (PT) High 9.0- 11.6 [facility] RBC Auto (Bld) [#/Vol]on RBC (Bld) [#/Vol] Erythrocytes [#/volu me] in Blood by Automated count Low 4.70-6.10 [facility] Comprehensive metabolic 2000 panelOrdered By: Solange Delgado on 08-28-2024 Albumin [Mass/Vol] 4 g/dL 3.9 - 4.9 g/dL [facility] ALP [Catalytic activity/Vol] 126 U/L High 38 - 113 U/L [facility] ALT [Catalytic activity/Vol] 10 U/L 10 - 54 U/L [facility] Anion gap [Moles/Vol] 10 mmol/L 8 - 15 mmol/L [facility] AST [Catalytic activity/Vol] 22 U/L 14 - 40 U/L [facility] Bilirubin [Mass/Vol] 0.6 mg/dL 0.2 - 1 .3 mg/dL [facility] Calcium [Mass/Vol] 8.9 mg/dL 8.5 - 10. 2 mg/dL [facility] Chloride [Moles/Vol] 93 mmol/L Low 98 - 10 7 mmol/L [facility] CO2 [Moles/Vol] 33 mmol/L High 22 - 30 mmol/L [facility] Creatinine [Mass/Vol] 1.66 mg/dL High 0.73 - 1.22 mg/dL [facility] GFR/1.73 sq M.predicted among non-blacks MDRD (S/P/Bld) [Vol rate/Area] 43 mL/min/{1.73_m2} Low - PINF [facility] Comment on above: Estimated Glomerular Filtration Rate [...] 134 mg/dL High 74 - 99 mg/dL [facility] Comment on above: The [place] Diabete s Association (ADA) provides guidance for [...] Standards of Medical Care in Diabetes 2016, [place] Diabetes [employer]. Diabetes Care. 2016.39(Suppl 1). Interpretation and review of laboratory results Abnormal [facility] Potassium [Moles/Vol] 2.7 mmol/L Low 3.7 - 5.1 mmol/L [facility] Protein [Mass/Vol] 7.4 g/dL 6.3 - 8.0 g/dL [facility] Sodium [Moles/Vol] 136 mmol/L 136 - 144 mmol/L [facility] Urea nitrogen [Mass/Vol] 40 mg/dL High 9 - 24 mg/dL [facility] Comprehensive metabolic 2000 panelon 08-28-2024 Albumin [Mass/Vol] 4.0 g/dL Normal 3.9-4.9 [facility] Comment on above: Order Comment: Speci men Type: BLOOD SPECIMENOrdering Facility: [facility] Address: [address] [place] [address] Performed By: #### 1 9123-9, 01731-9 ####[facility] LABIA [id number] [place] [address] ALP [Catalytic activity/Vol] 126 U/L High 38-113 [facility] Comment on above: Order Comment: Speci men Type: BLOOD SPECIMENOrdering Facility: [facility] Address: [address] [place] [address] Performed By: #### 1 9123-9, 72011-1 ####[facility] LABCLIA [id number] [place] [address] ALT [Catalytic activity/Vol] 10 U/L Normal 10-54 [facility] Comment on above: Order Comment: Speci men Type: BLOOD SPECIMENOrdering Facility: [facility] Address: [address] [place] [address] Performed By: #### 1 9123-9, 78146-8 ####[facility] LABCLIA [id number] [place] [address] Anion gap [Moles/Vol] 10 mmol/L Normal 8-15 [facility] Comment on above: Order Comment: Speci men Type: BLOOD SPECIMENOrdering Facility: [facility] Address: [address] [place] [address] Performed By: #### 1 9123-9, 48396-3 ####[facility] LABCLIA [id number] [place] [address] AST [Catalytic activity/Vol] 22 U/L Normal 14-40 [facility] Comment on above: Order Comment: Speci men Type: BLOOD SPECIMENOrdering Facility: [facility] Address: [address] [place] [address] Performed By: #### 1 9123-9, 47638-0 ####[facility] LABCLIA [id number] [place] [address] Bilirubin [Mass/Vol] 0.6 mg/dL Normal 0.2-1.3 [facility] Comment on above: Order Comment: Speci men Type: BLOOD SPECIMENOrdering Facility: [facility] Address: [address] [place] [address] Performed By: #### 1 9123-9, ####[facility] LABCLIA [id number] [place] [address] Calcium [Mass/Vol] 8.9 mg/dL Normal 8.5-10.2 [facility] Comment on above: Order Comment: Speci men Type: BLOOD SPECIMENOrdering Facility: [facility] Address: [address] [place] [address] Performed By: #### 1 9123-9, ####[facility] LABCLIA [id number] [place] [address] Chloride [Moles/Vol] 93 mmol/L Low 98-107 [facility] Comment on above: Order Comment: Speci men Type: BLOOD SPECIMENOrdering Facility: [facility] Address: [address] [place] [address] Performed By: #### 1 9123-9, 59897-2 ####[facility] LABCLIA [id number] [place] [address] CO2 [Moles/Vol] 33 mmol/L High 22-30 [facility] Comment on above: Order Comment: Speci men Type: BLOOD SPECIMENOrdering Facility: [facility] Address: [address] [id number] Performed By: #### 1 9123-9, 54040-6 ####[facility] LABCLIA [id number] [place] [address] Creatinine [Mass/Vol] 1.66 mg/dL High 0.73-1.22 [facility] Comment on above: Order Comment: Speci men Type: BLOOD SPECIMENOrdering Facility: [facility] Address: [address] [place] [address] Performed By: #### 1 9123-9, ####[facility] LABCLIA [id number] [place] [address] Creatinine and Glomerular filtration rate.predicted panel (S/P/Bld) 43 mL/min/1.73m??? Low >=60 [facility] Comment on above: Order Comment: Speci men Type: BLOOD SPECIMENOrdering Facility: [facility] Address: [address] [place] [address] Result Comment: Kristel mated Glomerular Filtration Rate [...] actual GFR. Performed By: #### 1 9123-9, 88703-4 ####[facility] LABIA [id number] [place] [address] Glucose [Mass/Vol] 134 mg/dL High 74-99 [facility] Comment on above: Order Comment: Speci men Type: BLOOD SPECIMENOrdering Facility: [facility] Address: [address] [place] [address] Result Comment: The [place] Diabetes Association (ADA) provides guidance for cutoff [...] Standards of Medical Care in Diabetes 2016, [place] [employer]. Diabetes Care. 2016.39(Suppl 1). Performed By: #### 1 9123-9, ####[facility] LABCLIA [id number] [place] [address] Potassium [Moles/Vol] 2.7 mmol/L Low 3.7-5.1 [facility] Comment on above: Order Comment: Speci men Type: BLOOD SPECIMENOrdering Facility: [facility] Address: [address] [place] [address] Performed By: #### 1 239, ####[facility] [facility] [id number] [place] [address] Protein [Mass/Vol] 7.4 g/dL Normal 6.3-8.0 [facility] Comment on above: Order Comment: Speci men Type: BLOOD SPECIMENOrdering Facility: [facility] Address: [address] [place], [place] [address] Performed By: #### 1 9123-9, ####[facility] LABCLIA [id number] [place] [address] Sodium [Moles/Vol] 136 mmol/L Normal 136-144 [facility] Comment on above: Order Comment: Speci men Type: BLOOD SPECIMENOrdering Facility: [facility] Address: [address] [place], [place] [address] Performed By: #### 1 91239, ####[facility] LABCLIA [id number] [place] [address] Urea nitrogen [Mass/Vol] 40 mg/dL High 9-24 [facility] Comment on above: Order Comment: Speci men Type: BLOOD SPECIMENOrdering Facility: [facility] Address: [place] [id number] Performed By: #### 1 9123-9, 73527-4 ####[facility] LABCLIA [id number] [place] [address] Laboratory - Chemistry and C hemistry - challengeon 08-28-2024 Albumin [Mass/Vol] 4.0 g/dL 3.9-4.9 [facility] ALP [Catalytic activity/Vol] 126 U/L High 38-113 [facility] ALT [Catalytic activity/Vol] 10 U/L 10-54 [facility] AST [Catalytic activity/Vol] 22 U/L 14-40 [facility] Bilirubin [Mass/Vol] 0.6 mg/dL 0.2-1.3 [facility] Calcium [Mass/Vol] 8.9 mg/dL 8.5-10.2 [facility] Chloride [Moles/Vol] 93 mmol/L Low 98-107 [facility] CO2 [Moles/Vol] 33 mmol/L High 22-30 [facility] Creatinine [Mass/Vol] 1.66 mg/dL High 0.73-1.22 [facility] Glucose [Mass/Vol] 134 mg/dL High 74-99 [facility] Comment on above: The [employer] Diabete s Association (ADA) provides guidance for [...] Standards of Medical Care in Diabetes 2016, [place] Diabetes Association. Diabetes Care. 2016.39(Suppl 1). Magnesium [Mass/Vol] 2.4 mg/dL High 1.7-2.3 [facility] Potassium [Moles/Vol] 2.7 mmol/L Low 3.7-5.1 [facility] Sodium [Moles/Vol] 136 mmol/L 136-144 [facility] TSH Qn 2.030 m[IU]/L 0.270-4.200 [facility] Urea nitrogen [Mass/Vol] 40 mg/dL High 9-24 [facility] MAGNESIUMon 08-28-2024 Magnesium [Mass/Vol] 2.4 mg/dL High 1.7 - 2 .3 mg/dL [facility] Magnesium SerPl-mCncon 08-28 Magnesium [Mass/Vol] 2.4 mg/dL High 1.7-2.3 [facility] Comment on above: Order Comment: Speci men Type: BLOOD SPECIMENOrdering Facility: [facility] Address: [address] [place] [address] Performed By: #### 1 9123-9, 47730-1 ####[facility] LABCLIA [id number] [place] [address] Magnesium [Mass/Vol]on 08-28 Interpretation and review of laboratory results Abnormal [facility] No Panel Informationon 08-28 Estimated GFR (CKD-EPI) 43 mL/min/1.73m??? Low >=60 [facility] Comment on above: Estimated Glomerular Filtration Rate (eGFR) is calculated using the 2020 CKD-EPI creatinine equation. This equation utilizes serum creatinine, sex, and age as parameters. The creatinine assay has traceable calibration to isotope dilution-mass spectrometry. Refer to KDIGO guidelines for clinical interpretation. In patients with unstable renal function, e.g. those with acute kidney injury, the eGFR may not accurately reflect actual GFR. Protein [Mass/volume] in Ser um or Plasmaon 08-28-2024 Protein [Mass/Vol] Protein [Mass/volume ] in Serum or Plasma 6.3-8.0 [facility] Serum or plasma anion gap de terminationon 08-28-2024 Anion gap [Moles/Vol] Serum or plasma an ion gap determination 8-15 [facility] TSH SerPl-aCncon 03-14-2025 TSH Qn 2.030 m[IU]/L Normal 0.270-4.200 [facility] Comment on above: Order Comment: Speci men Type: BLOOD SPECIMENOrdering Facility: [facility] Address: [address] [place] [address] Performed By: #### 3 016-3 ####[facility] LABCLIA [id number] [place] [id number] [place] No Panel Informationon 08-27 [facility] metabolic 2000 panelon 08-24-2024 Albumin [Mass/Vol] 4.1 g/dL Normal 3.9-4.9 [facility] Comment on above: Order Comment: Speci men Type: BLOOD SPECIMENOrdering Facility: [facility] Address: [address] [place] [address] Performed By: #### 1 9123-9, 3016-3, 76063-7 ####[facility] LABCLIA [id number] [place] [id number] [place] ALP [Catalytic activity/Vol] 137 U/L High 38-113 [facility] Comment on above: Order Comment: Speci men Type: BLOOD SPECIMENOrdering Facility: [facility] Address: [address] [place] [address] Performed By: #### 1 9123-9, 3016-3, 61609-9 ####[facility] LABCLIA [id number] [place] [id number] [place] ALT [Catalytic activity/Vol] 17 U/L Normal 10-54 [facility] Comment on above: Order Comment: Speci men Type: BLOOD SPECIMENOrdering Facility: [facility] Address: [address] [place] [address] Performed By: #### 1 9123-9, 3016-3, 30979-6 ####[facility] LABCLIA [id number] [address] [address] [place] Anion gap [Moles/Vol] 13 mmol/L Normal 8-15 [facility] Comment on above: Order Comment: Speci men Type: BLOOD SPECIMENOrdering Facility: [facility] Address: [address] [place], [place] [address] Performed By: #### 1 9123-9, 3016-3, 82128-0 ####[facility] LABCLIA [id number] [address] [address] [place] AST [Catalytic activity/Vol] 32 U/L Normal 14-40 [facility] Comment on above: Order Comment: Speci men Type: BLOOD SPECIMENOrdering Facility: [facility] Address: [address] [place] [address] Performed By: #### 1 9123-9, 3015-3, 91204-3 ####[facility] LABCLIA [id number] [place] [address] [place] Bilirubin [Mass/Vol] 0.7 mg/dL Normal 0.2-1.3 [facility] Comment on above: Order Comment: Speci men Type: BLOOD SPECIMENOrdering Facility: [facility] Address: [address] [place] [address] Performed By: #### 1 9123-9, 3, 02987-5 ####[facility] LABCLIA [id number] [place] [id number] [place] Calcium [Mass/Vol] 9.5 mg/dL Normal 8.5-10.2 [facility] Comment on above: Order Comment: Speci men Type: BLOOD SPECIMENOrdering Facility: [facility] Address: [address] [place], [place] [address] Performed By: #### 1 9123-9, 3, 00572-8 ####[facility] LABCLIA [id number] [address] [address] [place] Chloride [Moles/Vol] 93 mmol/L Low 98-107 [facility] Comment on above: Order Comment: Speci men Type: BLOOD SPECIMENOrdering Facility: [facility] Address: [address] [place] [address] Performed By: #### 1 9123-9, 3, 74140-2 ####[facility] LABCLIA [id number] [address] [address] [place] CO2 [Moles/Vol] 31 mmol/L High 22-30 [facility] Comment on above: Order Comment: Speci men Type: BLOOD SPECIMENOrdering Facility: [facility] Address: [address] [place] [address] Performed By: #### 1 9123-9, 3, ####[facility] LABCLIA [id number] [address] [address] [place] Creatinine [Mass/Vol] 1.61 mg/dL High 0.73-1.22 [facility] Comment on above: Order Comment: Speci men Type: BLOOD SPECIMENOrdering Facility: [facility] Address: [address] [place] [address] Performed By: #### 1 9123-9, 3, ####[facility] LABCLIA [id number] [address] [address] [place] Creatinine and Glomerular filtration rate.predicted panel (S/P/Bld) 45 mL/min/1.73m??? Low >=60 [facility] Comment on above: Order Comment: Speci men Type: BLOOD SPECIMENOrdering Facility: [facility] Address: [address] [place] [address] Result Comment: Kristel mated Glomerular Filtration Rate [...] actual GFR. Performed By: #### 1 9123-9, 3, ####[facility] LABCLIA [id number] [address] [address] [place] Glucose [Mass/Vol] 99 mg/dL Normal 74-99 [facility] Comment on above: Order Comment: Speci men Type: BLOOD SPECIMENOrdering Facility: [facility] Address: [address] [place] [address] Result Comment: The [place] Diabetes Association (ADA) provides guidance for cutoff [...] Standards of Medical Care in Diabetes 2016, [place] Diabetes Association. Diabetes Care. 2016.39(Suppl 1). Performed By: #### 1 9123-9, 3015-08, ####[facility] LABIA [id number] [facility] [address] [address] [place] Potassium [Moles/Vol] 2.9 mmol/L Low 3.7-5.1 [facility] Comment on above: Order Comment: Speci men Type: BLOOD SPECIMENOrdering Facility: [facility] Address: [address] [place] [place] [phone] Performed By: #### 1 9123-9, 3015-08, ####[facility] LABIA [id number] [address] [address] [place] Protein [Mass/Vol] 8.0 g/dL Normal 6.3-8.0 [facility] Comment on above: Order Comment: Speci men Type: BLOOD SPECIMENOrdering Facility: [facility] Address: [address] [place] [address] Performed By: #### 1 9123-9, 3016-3, 92665-1 ####[facility] LABCLIA [id number] [place] [address] [place] Sodium [Moles/Vol] 137 mmol/L Normal 136-144 [facility] Comment on above: Order Comment: Speci men Type: BLOOD SPECIMENOrdering Facility: [facility] Address: [address] [place] [address] Performed By: #### 1 9123-9, 3016-3, 56983-5 ####[facility] LABCLIA [id number] [place] [address] [place] Urea nitrogen [Mass/Vol] 30 mg/dL High 9-24 [facility] Comment on above: Order Comment: Speci men Type: BLOOD SPECIMENOrdering Facility: [facility] Address: [address] [place] [address] Performed By: #### 1 9123-9, 3016-3, 56472-0 ####[facility] LABCLIA [id number] [place] [address] [place] Laboratory - Chemistry and C hemistry - challengeon 08-24-2024 Albumin [Mass/Vol] 4.1 g/dL 3.9-4.9 [facility] ALP [Catalytic activity/Vol] 137 U/L High 38-113 [facility] ALT [Catalytic activity/Vol] 17 U/L 10-54 [facility] AST [Catalytic activity/Vol] 32 U/L 14-40 [facility] Bilirubin [Mass/Vol] 0.7 mg/dL 0.2-1.3 [facility] Calcium [Mass/Vol] 9.5 mg/dL 8.5-10.2 [facility] Chloride [Moles/Vol] 93 mmol/L Low 98-107 [facility] CO2 [Moles/Vol] 31 mmol/L High 22-30 [facility] Creatinine [Mass/Vol] 1.61 mg/dL High 0.73-1.22 [facility] Glucose [Mass/Vol] 99 mg/dL 74-99 [facility] Comment on above: The [place] Diabete s Association (ADA) provides guidance for [...] Standards of Medical Care in Diabetes 2016, [place] Diabetes Association. Diabetes Care. 2016.39(Suppl 1). Magnesium [Mass/Vol] 2.4 mg/dL High 1.7-2.3 [facility] Potassium [Moles/Vol] 2.9 mmol/L Low 3.7-5.1 [facility] Sodium [Moles/Vol] 137 mmol/L 136-144 [facility] TSH Qn 2.980 m[IU]/L 0.270-4.200 [facility] Urea nitrogen [Mass/Vol] 30 mg/dL High 9-24 [facility] Magnesium SerPl-mCncon 08-24 Magnesium [Mass/Vol] 2.4 mg/dL High 1.7-2.3 [facility] Comment on above: Order Comment: Speci men Type: BLOOD SPECIMENOrdering Facility: [facility] Address: [address] [place] [address] Performed By: #### 1 9123-9, 3016-3, 83452-7 ####[facility] LABCLIA [id number] [place] [address] [place] No Panel Informationon 08-24 Estimated GFR (CKD-EPI) 45 mL/min/1.73m??? Low >=60 [facility] Comment on above: Estimated Glomerular Filtration Rate (eGFR) is calculated using the 2020 CKD-EPI creatinine equation. This equation utilizes serum creatinine, sex, and age as parameters. The creatinine assay has traceable calibration to isotope dilution-mass spectrometry. Refer to KDIGO guidelines for clinical interpretation. In patients with unstable renal function, e.g. those with acute kidney injury, the eGFR may not accurately reflect actual GFR. Protein [Mass/volume] in Ser um or Plasmaon 08-24-2024 Protein [Mass/Vol] Protein [Mass/volume ] in Serum or Plasma 6.3-8.0 [facility] Serum or plasma anion gap de terminationon 08-24-2024 Anion gap [Moles/Vol] Serum or plasma an ion gap determination 8-15 [facility] TSH SerPl-aCncon 08-24-2024 TSH Qn 2.980 m[IU]/L Normal 0.270-4.200 [facility] Comment on above: Order Comment: Speci men Type: BLOOD SPECIMENOrdering Facility: [facility] Address: [address] [place] [address] Performed By: #### 1 9123-9, 3016-3, 82165-3 ####[facility] LABCLIA [id number] [place] [address] [place] CNPNon 08-21-2024 CNPN Normal [facility] CNOVon 08-18-2024 CNOV Normal [facility] Optical coherence tomography study reporton 08-14-2024 [facility] No Panel Informationon 08-13 IMPRESSION: Small, layering right-sided pleural effusion, stable in size from prior study of 07/20/2024. Drum Handler: PSCB Transcribe Date/Time: Aug 13 2024 10:27A Dictated by : NOLBERTO SMITH MD This examination was interpreted and the report reviewed and electronically signed by: NOLBERTO SMITH MD on Aug 13 2024 10:32AM [facility] DIVISION OF RADIOLOGY Radiology Study observation (narrative) [facility] No Panel InformationOrdered By: Ccf Provider on 08-13-2024 [facility] XR CHEST 1V DECUBITUS RTon 0 08-13-2024 XR CHEST 1V DECUBITUS RT Normal [facility] XR CHEST 2V FRONTAL/LATon XR CHEST 2V FRONTAL/LAT Normal [facility] XR Chest AP right lateral-de cubituson [...] is again noted. DIVISION OF RADIOLOGY Provider, [facility] - 08/13/2024 * * *Final Report* * [...] in size from prior study of 07/20/2024. Drum Handler: PSCAc Transcribe Date/Time: Aug 13 2024 10:27A Dictated by : NOLBERTO SMITH MD This examination was interpreted and the report reviewed and electronically signed by: NOLBERTO SMITH MD on Aug 13 2024 10:32AM EST [facility] XR Chest PA and Lateralon * * [...] is again noted. DIVISION OF RADIOLOGY Provider, [facility] - 08/13/2024 * * *Final Report* * [...] in size from prior study of 07/20/2024. Drum Handler: ALONSO Transcribe Date/Time: Aug 13 2024 10:27A Dictated by : NOLBERTO SMITH MD This examination was interpreted and the report reviewed and electronically signed by: NOLBERTO SMITH MD on Aug 13 2024 10:32AM [facility] [facility] Normal [facility] Optical coherence tomography study reporton 08-12-2024 Radiology Study observation (narrative) [facility] 08-10-[address] [facility] Normal [facility] 08-04-[address] [facility] Normal [facility] 08-03-2024 [facility] 25(OH)D3 [facility] 25-hydroxyvitamin D3 [Mass/Vol] 49.2 ng/mL Normal 31.0-80.0 [facility] Comment on above: Order Comment: Speci men Type: BLOOD SPECIMENOrdering Facility: [facility] Address: [address] [place] [address] Result Comment: Clas sification of 25 [place] Vitamin D status:Deficiency/Insufficiency: < or = 30 ng/ml.Sufficiency/Optimal Levels: 31-80 ng/mLToxicity: > 100 ng/mL.Test performed by chemiluminescent immunoassay. Performed By: #### 1 989-3 ####[facility] LABCLIA [id number] [address] [place] [address] [place] Basic metabolic 2000 panelon 07-29-2024 Anion gap [Moles/Vol] 7 mmol/L Low 8-15 [facility] Comment on above: Order Comment: Speci men Type: BLOOD SPECIMENOrdering Facility: [facility] Address: [address] [place] [address] Performed By: #### 1 9123-9, 24814-0 ####[facility] LABCLIA [id number] [place] [address] Calcium [Mass/Vol] 8.9 mg/dL Normal 8.5-10.2 [facility] Comment on above: Order Comment: Speci men Type: BLOOD SPECIMENOrdering Facility: [facility] Address: [address] [place] [address] Performed By: #### 1 9123-9, 20988-0 ####[facility] LABIA [id number] [place] [address] Chloride [Moles/Vol] 105 mmol/L Normal 98-107 [facility] Comment on above: Order Comment: Speci men Type: BLOOD SPECIMENOrdering Facility: [facility] Address: [address] [place] [address] Performed By: #### 1 9123-9, 14177-4 ####[facility] LABCLIA [id number] [place] [address] CO2 [Moles/Vol] 27 mmol/L Normal 22-30 [facility] Comment on above: Order Comment: Speci men Type: BLOOD SPECIMENOrdering Facility: [facility] Address: [address] [place], [place] [address] Performed By: #### 1 9123-9, 40138-1 ####[facility] LABCLIA [id number] [place] [address] Creatinine [Mass/Vol] 1.25 mg/dL High 0.73-1.22 [facility] Comment on above: Order Comment: Speci men Type: BLOOD SPECIMENOrdering Facility: [facility] Address: [address] [place] [id number] Performed By: #### 1 9123-9, 22386-8 ####[facility] LABCLIA [id number] [place] [address] Creatinine and Glomerular filtration rate.predicted panel (S/P/Bld) 61 mL/min/1.73m??? Normal >=60 [facility] Comment on above: Order Comment: Alexandru campos Type: BLOOD SPECIMENOrdering Facility: [facility] Address: [address] [place] [address] Result Comment: Kristel mated Glomerular Filtration Rate [...] actual GFR. Performed By: #### 1 9123-9, 25852-6 ####[facility] LABCLIA [id number] [place] [address] Glucose [Mass/Vol] 141 mg/dL High 74-99 [facility] Comment on above: Order Comment: Alexandru beth Type: BLOOD SPECIMENOrdering Facility: [facility] Address: [address] [place] [address] Result Comment: The [place] Diabetes Association (ADA) provides guidance for cutoff [...] Standards of Medical Care in Diabetes 2016, [place] Diabetes Association. Diabetes Care. 2016.39(Suppl 1). Performed By: #### 1 9123-9, 92239-2 ####[facility] LABCLIA [id number] [place] [address] Potassium [Moles/Vol] 4.0 mmol/L Normal 3.7-5.1 [facility] Comment on above: Order Comment: Speci men Type: BLOOD SPECIMENOrdering Facility: [facility] Address: [address] [place] [address] Performed By: #### 1 9123-9, 02917-9 ####[facility] LABCLIA [id number] [place] [address] Sodium [Moles/Vol] 139 mmol/L Normal 136-144 [facility] Comment on above: Order Comment: Speci men Type: BLOOD SPECIMENOrdering Facility: [facility] Address: [address] [place] [address] Performed By: #### 1 9123-9, 64602-5 ####[facility] LABCLIA [id number] [place] [address] Urea nitrogen [Mass/Vol] 27 mg/dL High 9-24 [facility] Comment on above: Order Comment: Speci men Type: BLOOD SPECIMENOrdering Facility: [facility] Address: [address] [place] [address] Performed By: #### 1 9123-9, 18361-2 ####[facility] LABCLIA [id number] [place] [address] CBC panel Auto (Bld)on 07-29 Erythrocyte distribution width (RBC) [Ratio] 16.2 % High 11.5 - 15.0 % [facility] Hematocrit (Bld) [Volume fraction] 34.6 % Low 39.0 - 51.0 % [facility] Hemoglobin (Bld) [Mass/Vol] 11.4 g/dL Low 13.0 - 17.0 g/dL [facility] Interpretation and review of laboratory results Abnormal [facility] MCH (RBC) [Entitic mass] 31.3 pg 26.0 - 34.0 pg [facility] MCHC (RBC) [Mass/Vol] 32.9 g/dL 30.5 - 36.0 g/dL [facility] MCV (RBC) [Entitic vol] 95.1 fL 80.0 - 100.0 fL [facility] Nucleated RBC (Bld) [#/Vol] NINF [facility] Platelet mean volume (Bld) [Entitic vol] 10.1 fL 9.0 - 12.7 fL [facility] Platelets (Bld) [#/Vol] 222 10*3/uL [facility] RBC (Bld) [#/Vol] 3.64 10*6/uL Low 4.20 - 6.0 0 m/uL [facility] WBC (Bld) [#/Vol] 7.62 10*3/uL [facility] Erythrocyte distribution width (RBC) [Ratio] 16.2 % High 11.5-15.0 [facility] Comment on above: Order Comment: Speci men Type: BLOOD SPECIMENOrdering Facility: [facility] Address: [address] [place] [address] Performed By: #### 5 8410-2 ####[facility] LABCLIA [id number] [place] [address] Hematocrit (Bld) [Volume fraction] 34.6 % Low 39.0-51.0 [facility] Comment on above: Order Comment: Speci men Type: BLOOD SPECIMENOrdering Facility: [facility] Address: [address] [place] [address] Performed By: #### 5 8410-2 ####[facility] LABCLIA [id number] [place] [address] Hemoglobin (Bld) [Mass/Vol] 11.4 g/dL Low 13.0-17.0 [facility] Comment on above: Order Comment: Speci men Type: BLOOD SPECIMENOrdering Facility: [facility] Address: [address] [place] [address] Performed By: #### 5 8410-2 ####[facility] LABCLIA [id number] [place] [address] MCH (RBC) [Entitic mass] 31.3 pg Normal 26.0-34.0 [facility] Comment on above: Order Comment: Speci men Type: BLOOD SPECIMENOrdering Facility: [facility] Address: [address] [place] [address] Performed By: #### 5 8410-2 ####[facility] LABIA [id number] [place] [address] MCHC (RBC) [Mass/Vol] 32.9 g/dL Normal 30.5-36.0 [facility] Comment on above: Order Comment: Speci men Type: BLOOD SPECIMENOrdering Facility: [facility] Address: [address] [place] [address] Performed By: #### 5 8410-2 ####[facility] LABIA [id number] [place] [address] MCV (RBC) [Entitic vol] 95.1 fL Normal 80.0-100.0 [facility] Comment on above: Order Comment: Speci men Type: BLOOD SPECIMENOrdering Facility: [facility] Address: [address] [place] [address] Performed By: #### 5 8410-2 ####[facility] LABIA [id number] [place] [address] Nucleated RBC (Bld) [#/Vol] 10*3/uL Normal <0.01 [facility] Comment on above: Order Comment: Speci men Type: BLOOD SPECIMENOrdering Facility: [facility] Address: [address] [place] [address] Performed By: #### 5 8410-2 ####[facility] LABIA [id number] [place] [address] Platelet mean volume (Bld) [Entitic vol] 10.1 fL Normal 9.0-12.7 [facility] Comment on above: Order Comment: Speci men Type: BLOOD SPECIMENOrdering Facility: [facility] Address: [address] [place] [address] Performed By: #### 5 8410-2 ####[facility] LABCLIA [id number] [place] [address] Platelets (Bld) [#/Vol] 222 10*3/uL Normal 150-400 [facility] Comment on above: Order Comment: Speci men Type: BLOOD SPECIMENOrdering Facility: [facility] Address: [address] [place] [address] Performed By: #### 5 8410-2 ####[facility] LABCLIA [id number] [place] [address] RBC (Bld) [#/Vol] 3.64 10*6/uL Low 4.20-6.00 [facility] Comment on above: Order Comment: Speci men Type: BLOOD SPECIMENOrdering Facility: [facility] Address: [address] [place] [address] Performed By: #### 5 8410-2 ####[facility] LABCLIA [id number] [place] [address] WBC (Bld) [#/Vol] 7.62 10*3/uL Normal 3.70-11.00 [facility] Comment on above: Order Comment: Speci men Type: BLOOD SPECIMENOrdering Facility: [facility] Address: [address] [place] [address] Performed By: #### 5 8410-2 ####[facility] LABCLIA [id number] [place] [address] Vilma Garcia [birth year] 25 Cortisol [Mass/Vol] 11.1 ug/dL Normal 4.8-19.5 [facility] Comment on above: Order Comment: Speci men Type: BLOOD SPECIMENOrdering Facility: [facility] Address: [address] [place] [address] Result Comment: Prov ided reference range is from 6-10 AM sample collection time.Cortisol Reference Range: 6-10 AM = 4.8-19.5 ug/dL, 4-8 PM = 2.5-11.9 ug/dL Performed By: #### 2 143-6, 2132-9 ####[facility] LABCLIA [id number] [place] [address] [place] Erythrocyte distribution wid th Auto (RBC) [Ratio]on 07-29-2024 Erythrocyte distribution width (RBC) [Ratio] Erythrocyte distribution width [Ratio] by Automated count High 11.5-15.0 [facility] Hematocrit Auto (Bld) [Volum e fraction]on 07-29-2024 Hematocrit (Bld) [Volume fraction] Hematocrit [Volume Fraction] of Blood by Automated count Low 39.0-51.0 [facility] Hemoglobin [Mass/volume] in Bloodon 07-29-2024 Hemoglobin (Bld) [Mass/Vol] Hemoglobin [Mass/volume] in Blood Low 13.0-17.0 [facility] Laboratory - Chemistry and C hemistry - challengeon 07-29-2024 Calcium [Mass/Vol] 8.9 mg/dL 8.5-10.2 [facility] Chloride [Moles/Vol] 105 mmol/L 98-107 [facility] CO2 [Moles/Vol] 27 mmol/L 22-30 [facility] Cobalamin (Vitamin B12) [Mass/Vol] 729 pg/mL 232-1245 [facility] Creatinine [Mass/Vol] 1.25 mg/dL High 0.73-1.22 [facility] Glucose [Mass/Vol] 141 mg/dL High 74-99 [facility] Comment on above: The [place] Diabete s Association (ADA) provides guidance for [...] Standards of Medical Care in Diabetes 2016, [place] Diabetes Association. Diabetes Care. 2016.39(Suppl 1). Magnesium [Mass/Vol] 2.0 mg/dL 1.7-2.3 [facility] Potassium [Moles/Vol] 4.0 mmol/L 3.7-5.1 [facility] Sodium [Moles/Vol] 139 mmol/L 136-144 [facility] Urea nitrogen [Mass/Vol] 27 mg/dL High 9-24 [facility] Leukocytes [#/volume] correc prerna for nucleated erythrocytes in Blood by Automated counon 07-29-2024 WBC corrected for nucl RBC Auto (Bld) [#/Vol] Leukocytes [#/volume] corrected for nucleated erythrocytes in Blood by Automated coun 3.70-11.00 [facility] MCH Auto (RBC) [Entitic mass ]on 07-29-2024 MCH (RBC) [Entitic mass] MCH [Entitic mass] by Automated count 26.0-34.0 [facility] MCHC Auto (RBC) [Mass/Vol]on 07-29-2024 MCHC (RBC) [Mass/Vol] MCHC [Mass/volume] by Automated count 30.5-36.0 [facility] MCV Auto (RBC) [Entitic vol] on 07-29-2024 MCV (RBC) [Entitic vol] MCV [Entitic volume] by Automated count 80.0-100.0 [facility] Magnesium SerPl-mCncon 07-29 Magnesium [Mass/Vol] 2.0 mg/dL Normal 1.7-2.3 [facility] Comment on above: Order Comment: Speci men Type: BLOOD SPECIMENOrdering Facility: [facility] Address: [address] [address] Performed By: #### 1 9123-9, 38892-8 ####[facility] LABCLIA [id number] [place] [address] No Panel Informationon 07-29 Estimated GFR (CKD-EPI) 61 mL/min/1.73m??? >=60 [facility] Comment on above: Estimated Glomerular Filtration Rate (eGFR) is calculated using the 2020 CKD-EPI creatinine equation. This equation utilizes serum creatinine, sex, and age as parameters. The creatinine assay has traceable calibration to isotope dilution-mass spectrometry. Refer to KDIGO guidelines for clinical interpretation. In patients with unstable renal function, e.g. those with acute kidney injury, the eGFR may not accurately reflect actual GFR. Nucleated RBC Auto (Bld) [#/ Vol]on 07-29-2024 Nucleated RBC (Bld) [#/Vol] Nucleated erythrocytes [#/volume] in Blood by Automated count <0.01 [facility] Platelet mean volume Auto (B ld) [Entitic vol]on 07-29-2024 Platelet mean volume (Bld) [Entitic vol] Platelet mean volume [Entitic volume] in Blood by Automated count 9.0-12.7 [facility] Platelets Auto (Bld) [#/Vol] on 07-29-2024 Platelets (Bld) [#/Vol] Platelets [#/volume] in Blood by Automated count 150-400 [facility] RBC Auto (Bld) [#/Vol]on RBC (Bld) [#/Vol] Erythrocytes [#/volu me] in Blood by Automated count Low 4.20-6.00 [facility] Serum or plasma anion gap de terminationon 07-29-2024 Anion gap [Moles/Vol] Serum or plasma an ion gap determination Low 8-15 [facility] Serum or plasma calcidiol me asurement (mass/volume)on 07-29-2024 25-hydroxyvitamin D3 [Mass/Vol] Serum or plasma calcidiol measurement (mass/volume) 31.0-80.0 [facility] Comment on above: Classification of 25 [place] Vitamin D status: Deficiency/Insufficiency: < or = 30 ng/ml.Sufficiency/Optimal Levels: 31-80 ng/mLToxicity: > 100 ng/mL. Test performed by chemiluminescent immunoassay. Vit B12 SerPl-mCncon 025 Cobalamin (Vitamin B12) [Mass/Vol] 729 pg/mL Normal 232-1245 [facility] Comment on above: Order Comment: Speci men Type: BLOOD SPECIMENOrdering Facility: [facility] Address: [address] [place] [address] Performed By: #### 2 143-6, 2132-9 ####[facility] LABCLIA [id number] [place] [id number] [place] US Chest limitedon 5 [facility] ALBUMINon 07-20-2024 Albumin [Mass/Vol] 3.9 g/dL 3.9 - 4.9 g/dL [facility] Albumin (Body fld) [Mass/Vol ]on 07-20-2024 Fluid Nom (Body fld) Pleural Cavity, Right Normal [facility] Comment on above: Order Comment: Speci men Type: SPECIMEN FROM PLEURA OBTAINED BY THORACENTESISOrdering Facility: [facility] Address: [address] [place] [address] Result Comment: recu rrent pleual effusion on right Performed By: #### 2 529-6, 2881-1, 1747-5 ####[facility] LABCLIA [id number] [place] [address] [place] Albumin Fld-mCncon 5 Albumin (Body fld) [Mass/Vol] 1.4 g/dL Normal See Comment [facility] Comment on above: Order Comment: Speci men Type: SPECIMEN FROM PLEURA OBTAINED BY THORACENTESISOrdering Facility: [facility] Address: [address] [place] [address] Result Comment: Body Fluid Albumin may be [...] document C49A. RAJEEV Bui: Clinical Laboratory Standards Boody: 2007.2. Dionicio SERNA. Serum to ascites albumin gradient. To. 2014. Accessed on September 28, 2015. Performed By: #### 2 529-6, 2881-1, 1747-5 ####[facility] LABCLIA [id number] [place] [address] [place] Albumin SerPl-mCncon 025 Albumin [Mass/Vol] 3.9 g/dL Normal 3.9-4.9 [facility] Comment on above: Order Comment: Speci men Type: BLOOD SPECIMENOrdering Facility: [facility] Address: [address] [place] [address] Performed By: #### 1 751-7, 2885-2 ####[facility] LABCLIA [id number] [place] [address] [place] CNOVon 07-20-2024 CNOV Normal [facility] LACTATE DEHYDROGENASEon LDH [Catalytic activity/Vol] 293 U/L High 135 - 225 U/L [facility] Comment on above: Hemolysis present. T he [...] [Catalytic activity/Vol] 167 U/L Normal See Comment [facility] Comment on above: Order Comment: Speci men Type: SPECIMEN FROM PLEURA OBTAINED BY THORACENTESISOrdering Facility: [facility] Address: [address] [place] [address] Result Comment: Pleu ral fluids: Pleural fluid [...] document C49A. RAJEEV Bui: Clinical Laboratory Standards Boody: 2007.Reference: 2. Rafael STARK, Fei Doyle. Body [...] Performed By: #### 2 529-6, 2881-1, 1747-5 ####[facility] LABCLIA [id number] [place] [address] [place] LDH SerPl-cCncon 07-20-2024 LDH [Catalytic activity/Vol] 293 U/L High 135-225 [facility] Comment on above: Order Comment: Speci men Type: BLOOD SPECIMENOrdering Facility: [facility] Address: [address] [place] [address] Result Comment: Hemo lysis present. The origin of the hemolysis, in vitro versus an in vivo hemolytic process, cannot be distinguished via this assay alone. In vitro hemolysis may lead to non-physiological (spurious) elevation in lactate dehydrogenase (LDH) results. Theresult should be interpreted in context of the clinical setting and other test results. Suggest reorder as clinically indicated. Performed By: #### 2 532-0 ####[facility] LABCLIA [id number] [place] [address] [place] LDH [Catalytic activity/Vol] on 07-20-2024 Interpretation and review of laboratory results Abnormal [facility] Laboratory - Chemistry and C hemistry - challengeon 02-03-2025 Albumin [Mass/Vol] 3.9 g/dL 3.9-4.9 [facility] LDH [Catalytic activity/Vol] 293 U/L High 135-225 [facility] Comment on above: Hemolysis present. T he origin of the hemolysis, in vitro versus an in vivo hemolytic process, cannot be distinguished via this assay alone. In vitro hemolysis may lead to non-physiological (spurious) elevation in lactate dehydrogenase (LDH) results. The result should be interpreted in context of the clinical setting and other test results. Suggest reorder as clinically indicated. No Panel Informationon 07-20 Interpretation and review of laboratory results Normal [facility] PROTEIN, TOTALon 07-20-2024 Protein [Mass/Vol] 7.6 g/dL 6.3 - 8.0 g/dL [facility] Prot Fld-mCncon 07-20-2024 Protein (Body fld) [Mass/Vol] 2.2 g/dL Normal See Comment [facility] Comment on above: Order Comment: Speci men Type: SPECIMEN FROM PLEURA OBTAINED BY THORACENTESISOrdering Facility: [facility] Address: [address] [place] [address] Result Comment: Sero us fluids: Effusions are [...] document C49A. RAJEEV Bui: Clinical Laboratory Standards Boody: 2007. Performed By: #### 2 529-6, 2881-1, 1747-5 ####[facility] LABCLIA [id number] [facility] [id number] [place] [address] [place] Prot SerPl-mCncon 07-20-2024 Protein [Mass/Vol] 7.6 g/dL Normal 6.3-8.0 [facility] Comment on above: Order Comment: Speci men Type: BLOOD SPECIMENOrdering Facility: [facility] Address: [address] [place] [address] Performed By: #### 1 751-7, 2885-2 ####[facility] LABCLIA [id number] [address] [place] [address] [place] Protein [Mass/volume] in Ser um or Plasmaon 07-20-2024 Protein [Mass/Vol] Protein [Mass/volume ] in Serum or Plasma 6.3-8.0 [facility] US Chest limitedon Radiology Study observation (narrative) [facility] XR CHEST 2V FRONTAL/LATon XR CHEST 2V FRONTAL/LAT Normal [facility] XR Chest PA and Lateralon IMPRESSION: Decreased size of small right pleural effusion. Drum Handler: PSCB Transcribe Date/Time: Jul 20 2024 12:41P Dictated by : PANCHO CANALES MD This examination was interpreted and the report reviewed and electronically signed by: ANALY ALONSO MD on Jul 20 2024 1:49PM [facility] DIVISION OF RADIOLOGY * * *Final [...] thoracic spine. DIVISION OF RADIOLOGY Provider, Migel Hudson - 07/20/2024 * * *Final Report* * [...] Decreased size of small right pleural effusion. Drum Handler: ALONSO Transcribe Date/Time: Jul 20 2024 12:41P Dictated by : PANCHO CANALES MD This examination was interpreted and the report reviewed and electronically signed by: ANALY ALONSO MD on Jul 20 2024 1:49PM EST [facility] Radiology Study observation (narrative) [facility] XR Chest PA and LateralOrder ed By: Ccf Provider on 07-20-2024 [facility] CNPNon 07-16-2024 CNPN Normal [facility] CNPNon 06-29-2024 CNPN Normal [facility] BODY FLUID CELL COUNTon -0 Clarity (Unsp spec) Clear Normal Clear [facility] Comment on above: Order Comment: Speci men Type: SPECIMEN FROM PLEURA OBTAINED BY THORACENTESISOrdering Facility: [facility] Address: [address] [place] [address] Performed By: #### C [facility], [id number] ####[facility] LABCLIA [id number] [place] [address] [place] Color (Body fld) Yellow Normal Yellow [facility] Comment on above: Order Comment: Speci men Type: SPECIMEN FROM PLEURA OBTAINED BY THORACENTESISOrdering Facility: [facility] Address: [address] [place] [address] Performed By: #### C CBF, [id number] ####[facility] LABCLIA [id number] [place] [address] [place] RBC Manual cnt (Body fld) [#/Vol] <2000 Normal <2000 [facility] Comment on above: Order Comment: Speci men Type: SPECIMEN FROM PLEURA OBTAINED BY THORACENTESISOrdering Facility: [facility] Address: [address] [place] [address] Performed By: #### C CBF, [id number] ####[facility] LABCLIA [id number] [place] [address] [place] Specimen source Nom (Body fld) Pleural Cavity, Right Normal [facility] Comment on above: Order Comment: Speci men Type: SPECIMEN FROM PLEURA OBTAINED BY THORACENTESISOrdering Facility: [facility] Address: [address] [place] [address] Performed By: #### C CBF, [id number] ####[facility] LABCLIA [id number] [place] [address] [place] WBC Manual cnt (Body fld) [#/Vol] 408 /uL Normal <1000 [facility] Comment on above: Order Comment: Speci men Type: SPECIMEN FROM PLEURA OBTAINED BY THORACENTESISOrdering Facility: [facility] Address: [address] [place] [address] Performed By: #### C CBF, [id number] ####[facility] LABCLIA [id number] [place] [address] [place] CNOVon 06-22-2024 CNOV Normal [facility] FLOW CYTOMETRY FOR LEUKEMIA/ LYMPHOMA (FCLL) PERFORMABLEon 06-22-2024 FLOW CYTOMETRY ORDER STATUS Results will be reported under F case ID when completed Normal [facility] Comment on above: Order Comment: Speci men Type: SPECIMEN FROM PLEURA OBTAINED BY THORACENTESISOrdering Facility: [facility] Address: [address] [place] [address] Performed By: #### F CLLP ####[facility] LABCLIA [id number] [address] [place] FLOW CYTOMETRY FOR LEUKEMIA/ LYMPHOMA (FCLL) REFLEXon 06-22-2024 DIAGNOSIS COMMENT Normal [facility] Comment on above: Order Comment: Speci men Type: SPECIMEN FROM PLEURA OBTAINED BY THORACENTESISOrdering Facility: [facility] Address: [address] [place] [address] Result Comment: This test was developed and its performance characteristics determined by [facility]'s [facility] B[facility] ([facility]). It has not been cleared or approved by the FDA. -PLMI is regulated under CLIA as qualified to perform high-complexity testing. This test is used for clinical purposes. It should not be regarded as investigational or for research. Performed By: #### F CLLRFLX ####[facility] LABCLIA [id number] [place] [address] [place] [facility] Normal [facility] Comment on above: Order Comment: Speci men Type: SPECIMEN FROM PLEURA OBTAINED BY THORACENTESISOrdering Facility: [facility] Address: [address] [place] [address] Result Comment: Diag nostic interpretation performed at [facility], [address] [place] [address] CLIA# [id number] Director: Ramos Strickland M.D. Performed By: #### F CLLRFLX ####[facility] LABCLIA [id number] [address] [place] FLOW CYTOMETRY RESULTS Normal [facility] Comment on above: Order Comment: Speci men Type: SPECIMEN FROM PLEURA OBTAINED BY THORACENTESISOrdering Facility: [facility] Address: [address] [place] [address] Result Comment: Spec imen type: Pleural fluidTotal [...] PatternCD7 T/NK-cells Normal PatternCD8 T-cell subset Normal MdinghaCR16 B-cell subset Normal BruqdmwVI48 Myeloid Normal ZfsnvokJM49/56 NK cells Normal XspmcebEY03 B-cells Normal GnwkheuFQ83 B-cells Normal UpufbndDK97 B-cells subset Normal EuwqtguGQ43 Ramos-leukocyte Normal FmcocniYM576 Dendritic Normal VmjldcvIU006 B-cells Normal Patternkappa/lambda B-cells Normal PatternTRBC1 T-cells Normal, polytypicFlow cytometric analysis of the pleural fluid reveals that 95% of total events have the CD45 and side scatter properties of lymphocytes.The lymphocytes are composed of a mixture of heterogeneous T-cells (75%; CD4:CD8 ratio = 2.48), NK cells (15%) and polytypic B-cells (8%).OVN/NZ 06/23/2024 Performed By: #### F CLLRFLX ####[facility] [id number] [place] [address] [place] GROSS DESCRIPTION Normal [facility] Comment on above: Order Comment: Speci men Type: SPECIMEN FROM PLEURA OBTAINED BY THORACENTESISOrdering Facility: [facility] Address: [address] [place] [address] Result Comment: A. P leural Cavity, RightRECEIVED 10 MLS PLEURAL FLUID Performed By: #### F CLLRFLX ####[facility] LABIA [id number] [place] [address] [place] INTERPRETATION Normal [facility] Comment on above: Order Comment: Speci men Type: SPECIMEN FROM PLEURA OBTAINED BY THORACENTESISOrdering Facility: [facility] Address: [address] [place] [address] Result Comment: Ther e is no immunophenotypic evidence of involvement by a lymphoproliferative disorder. Correlation with the clinical findings is suggested. Performed By: #### F CLLRFLX ####[facility] LABIA [id number] [place] [address] [place] Glucose Fld-mCncon 5 Glucose (Body fld) [Mass/Vol] 112 mg/dL Normal See Comment [facility] Comment on above: Order Comment: Speci men Type: SPECIMEN FROM PLEURA OBTAINED BY THORACENTESISOrdering Facility: [facility] Address: [address] [place] [address] Result Comment: Syno vial fluid: Synovial fluid [...] document C49A. RAJEEV Bui: Clinical Laboratory Standards Boody: 2007. Performed By: #### 2 344-0, 2529-6, 2881-1 ####[facility] LABIA [id number] [address] [place] HISTORY PHYSICALon 5 HISTORY PHYSICAL Normal Vivi devine [facility] LDH Fld-cCncon 06-22-2024 LDH (Body fld) [Catalytic activity/Vol] 100 U/L Normal See Comment [facility] Comment on above: Order Comment: Speci men Type: SPECIMEN FROM PLEURA OBTAINED BY THORACENTESISOrdering Facility: [facility] Address: [address] [place] [address] Result Comment: Pleu ral fluids: Pleural fluid [...] document C49A. RAJEEV Bui: Clinical Laboratory Standards Boody: 2007.Reference: 2. Rafael STARK, Fei Doyle. Body [...] Performed By: #### 2 344-0, 2529-6, 2881-1 ####[facility] LABCLIA [id number] [place] [address] [place] MANUAL DIFFERENTIAL, BODY FL UIDon 06-22-2024 DIF TTL, BODY FLUID 100 cells counted Normal [facility] Comment on above: Order Comment: Speci men Type: SPECIMEN FROM PLEURA OBTAINED BY THORACENTESISOrdering Facility: [facility] Address: [address] [place] [address] Performed By: #### C CBF, [id number] ####[facility] LABCLIA [id number] [place] [id number] [place] LYMPH%, BF 80 % High 18-36 [facility] Comment on above: Order Comment: Speci men Type: SPECIMEN FROM PLEURA OBTAINED BY THORACENTESISOrdering Facility: [facility] Address: [address] [place] [address] Performed By: #### C CBF, [id number] ####[facility] LABCLIA [id number] [place] [address] [place] MACRO%, BF 6 % Low 64-80 [facility] Comment on above: Order Comment: Speci men Type: SPECIMEN FROM PLEURA OBTAINED BY THORACENTESISOrdering Facility: [facility] Address: [address] [place] [address] Performed By: #### C CBF, [id number] ####[facility] LABCLIA [id number] [place] [address] [place] MESO %, BF 1 % Normal 0-2 [facility] Comment on above: Order Comment: Speci men Type: SPECIMEN FROM PLEURA OBTAINED BY THORACENTESISOrdering Facility: [facility] Address: [address] [place] [address] Performed By: #### C CBF, [id number] ####[facility] LABCLIA [id number] [place] [address] [place] MONO% BF 6 % Normal [facility] Comment on above: Order Comment: Speci men Type: SPECIMEN FROM PLEURA OBTAINED BY THORACENTESISOrdering Facility: [facility] Address: [address] [place] [address] Performed By: #### C CBF, [id number] ####[facility] LABCLIA [id number] [place] [address] [place] NEUT%, BF 6 % High 0-1 [facility] Comment on above: Order Comment: Speci men Type: SPECIMEN FROM PLEURA OBTAINED BY THORACENTESISOrdering Facility: [facility] Address: [address] [place] [address] Performed By: #### C CBF, [id number] ####[facility] LABCLIA [id number] [place] [address] [place] REAC LYMPH %, BF 1 % Normal [facility] Comment on above: Order Comment: Speci men Type: SPECIMEN FROM PLEURA OBTAINED BY THORACENTESISOrdering Facility: [facility] Address: [address] [place] [address] Performed By: #### C [facility], [id number] ####[facility] LABCLIA [id number] [place] [address] [place] OPERATIVE NOon 06-22-2024 OPERATIVE NO Normal [facility] Prot Fld-mCncon 06-22-2024 Protein (Body fld) [Mass/Vol] 2.6 g/dL Normal See Comment [facility] Comment on above: Order Comment: Speci men Type: SPECIMEN FROM PLEURA OBTAINED BY THORACENTESISOrdering Facility: [facility] Address: [address] [place] [address] Result Comment: Sero us fluids: Effusions are [...] document C49A. RAJEEV Bui: Clinical Laboratory Standards Boody: 2007. Performed By: #### 2 344-0, 2529-6, 2881-1 ####[facility] LABCLIA [id number] [place] [id number] [place] CNOVon 06-01-2024 CNOV Normal [facility] Basic metabolic 2000 panelon 05-29-2024 Anion gap [Moles/Vol] 13 mmol/L Normal 8-15 [facility] Comment on above: Order Comment: Speci men Type: BLOOD SPECIMENOrdering Facility: [facility] Address: [address] [place] [address] Performed By: #### 2 4321-2 ####[facility] LABCLIA [id number] [address] [address] [place] Calcium [Mass/Vol] 9.3 mg/dL Normal 8.5-10.2 [facility] Comment on above: Order Comment: Speci men Type: BLOOD SPECIMENOrdering Facility: [facility] Address: [address] [place] [address] Performed By: #### 2 4321-2 ####[facility] LABCLIA [id number] [place] [address] [place] Chloride [Moles/Vol] 100 mmol/L Normal 98-107 [facility] Comment on above: Order Comment: Speci men Type: BLOOD SPECIMENOrdering Facility: [facility] Address: [address] [place] [address] Performed By: #### 2 4321-2 ####[facility] LABCLIA [id number] [place] [address] [place] CO2 [Moles/Vol] 29 mmol/L Normal 22-30 [facility] Comment on above: Order Comment: Speci men Type: BLOOD SPECIMENOrdering Facility: [facility] Address: [address] [place] [address] Performed By: #### 2 4321-2 ####[facility] LABCLIA [id number] [place] [address] [place] Creatinine [Mass/Vol] 1.19 mg/dL Normal 0.73-1.22 [facility] Comment on above: Order Comment: Speci men Type: BLOOD SPECIMENOrdering Facility: [facility] Address: [address] [place] [address] Performed By: #### 2 4321-2 ####[facility] LABCLIA [id number] [place] [address] [place] Creatinine and Glomerular filtration rate.predicted panel (S/P/Bld) 64 mL/min/1.73m??? Normal >=60 [facility] Comment on above: Order Comment: Alexandru campos Type: BLOOD SPECIMENOrdering Facility: [facility] Address: [address] [place] [address] Result Comment: Kristel mated Glomerular Filtration Rate [...] actual GFR. Performed By: #### 2 4321-2 ####[facility] LABIA [id number] [place] [address] [place] Glucose [Mass/Vol] 158 mg/dL High 74-99 [facility] Comment on above: Order Comment: Alexandru campos Type: BLOOD SPECIMENOrdering Facility: [facility] Address: [address] [place] [address] Result Comment: The [place] Diabetes Association (ADA) provides guidance for cutoff [...] Standards of Medical Care in Diabetes 2016, [place] Diabetes Association. Diabetes Care. 2016.39(Suppl 1). Performed By: #### 2 4321-2 ####[facility] LABIA [id number] [place] [address] [place] Potassium [Moles/Vol] 4.1 mmol/L Normal 3.7-5.1 [facility] Comment on above: Order Comment: Alexandru campos Type: BLOOD SPECIMENOrdering Facility: [facility] Address: [address] [place] [id number] Performed By: #### 2 4321-2 ####[facility] LABCLIA [id number] [place] [id number] [place] Sodium [Moles/Vol] 142 mmol/L Normal 136-144 [facility] Comment on above: Order Comment: Speci men Type: BLOOD SPECIMENOrdering Facility: [facility] Address: [address] [place] [address] Performed By: #### 2 4321-2 ####[facility] LABCLIA [id number] [place] [address] [place] Urea nitrogen [Mass/Vol] 28 mg/dL High 9-24 [facility] Comment on above: Order Comment: Speci men Type: BLOOD SPECIMENOrdering Facility: [facility] Address: [address] [place] [address] Performed By: #### 2 4321-2 ####[facility] LABIA [id number] [place] [address] [place] CNPNon 05-25-2024 CNPN Normal [facility] ALBUMIN, BODY FLUIDon 2023 Albumin (Body fld) [Mass/Vol] 1.4 g/dL See Comment [facility] Comment on above: Body Fluid Albumin m [...] document C49A. RAJEEV Bui: Clinical Laboratory Standards Boody: 2007. 2. Dionicio SERNA. Serum to ascites albumin gradient. UpToDate. 2015. Accessed on September 28, 2015. BODY FLUID CELL COUNTOrdered By: Britton Andrews on 05-19-2024 RBC Manual cnt (Body fld) [#/Vol] /uL NINF - 2000 /uL [facility] Specimen source Nom (Body fld) Pleural Cavity, Right [facility] WBC Manual cnt (Body fld) [#/Vol] 443 /uL NINF - 1000 /uL [facility] CHOLESTEROL BFLon 05-19-2024 Cholesterol (Body fld) [Mass/Vol] 30 mg/dL See Comment [facility] Comment on above: SYNOVIAL FLUIDS: Synovial fluid [...] document C49-A. RAJEEV Bui: Clinical Laboratory Standards Boody; 2007. Comprehensive metabolic 2000 panelon 05-19-2024 Albumin [Mass/Vol] 3.8 g/dL Low 3.9 - 4.9 g/dL [facility] ALP [Catalytic activity/Vol] 174 U/L High 38 - 113 U/L [facility] ALT [Catalytic activity/Vol] 22 U/L 10 - 54 U/L [facility] Anion gap [Moles/Vol] 16 mmol/L High 8 - 15 mmol/L [facility] AST [Catalytic activity/Vol] 28 U/L 14 - 40 U/L [facility] Bilirubin [Mass/Vol] 0.7 mg/dL 0.2 - 1 .3 mg/dL [facility] Calcium [Mass/Vol] 9.1 mg/dL 8.5 - 10. 2 mg/dL [facility] Chloride [Moles/Vol] 98 mmol/L 98 - 10 7 mmol/L [facility] CO2 [Moles/Vol] 28 mmol/L 22 - 30 mmol/L [facility] Creatinine [Mass/Vol] 1.14 mg/dL 0.73 - 1.22 mg/dL [facility] GFR/1.73 sq M.predicted among non-blacks MDRD (S/P/Bld) [Vol rate/Area] 68 mL/min/{1.73_m2} - PINF [facility] Comment on above: Estimated Glomerular Filtration Rate [...] 112 mg/dL High 74 - 99 mg/dL [facility] Comment on above: The [place] Diabete s Association (ADA) provides guidance for [...] Standards of Medical Care in Diabetes 2016, [place] Diabetes Association. Diabetes Care. 2016.39(Suppl 1). Interpretation and review of laboratory results Abnormal [facility] Potassium [Moles/Vol] 3.4 mmol/L Low 3.7 - 5.1 mmol/L [facility] Protein [Mass/Vol] 6.6 g/dL 6.3 - 8.0 g/dL [facility] Sodium [Moles/Vol] 142 mmol/L 136 - 144 mmol/L [facility] Urea nitrogen [Mass/Vol] 21 mg/dL 9 - 24 mg/dL [facility] GLUCOSE, BODY FLUIDon 2023 Glucose (Body fld) [Mass/Vol] 106 mg/dL See Comment [facility] Comment on above: Synovial fluid: Syno vial [...] document C49A. RAJEEV Bui: Clinical Laboratory Standards Boody: 2007. LACTATE DEHYDROGENASEon LDH [Catalytic activity/Vol] 209 U/L 135 - 225 U/L [facility] Comment on above: Hemolysis present. T he [...] fld) [Catalytic activity/Vol] 86 U/L See Comment [facility] Comment on above: Pleural fluids: Pleu ral [...] document C49A. RAJEEV Bui: Clinical Laboratory Standards Boody: 2007. Reference: 2. Rafael STARK, Fei Doyle. [...] Interpretation and review of laboratory results Normal [facility] Laboratoryon 05-19-2024 Fluid Nom (Body fld) Pleural Cavity, Right [facility] Laboratory - Specimen inform ationOrdered By: Britton Andrews on 05-19-2024 Clarity (Unsp spec) Clear Clear [facility] Color (Body fld) Yellow Yellow [facility] No Panel Informationon 05-19 [facility] PH PLEURAL FLUID (FOR USE OU [facility])on 05-19-2024 Fluid Nom (Body fld) Pleural Cavity, Right [facility] pH (Body fld) 7.9 [pH] [facility] Comment on above: No reference range h as been established for this specimen type. This test was developed, and its performance characteristics determined by the [facility] Department of Pathology and Laboratory Medicine. It has not been cleared or approved by the FDA. The [facility] Department of Pathology and Laboratory Medicine is regulated under CLIA as qualified to perform high-complexity testing. This test is used for clinical purposes. It should not be regarded as investigational or for research. [facility] PROTEIN, BODY FLUIDon 2023 Protein (Body fld) [Mass/Vol] 2.2 g/dL See Comment [facility] Comment on above: Serous fluids: Effus ions [...] document C49A. RAJEEV Bui: Clinical Laboratory Standards Boody: 2007. TRIGLYCERIDE BFLon Triglyceride (Body fld) [Mass/Vol] 13 mg/dL [facility] Comment on above: Synovial fluids: Syn ovial [...] document C49A. RAJEEV Bui: Clinical Laboratory Standards Boody; 2007. Albumin Fld-[facility] Albumin (Body fld) [Mass/Vol] 1.4 g/dL Normal See Comment [facility] Comment on above: Order Comment: Alexandru campos Type: FLUID SPECIMENOrdering Facility: [facility] Address: [address] [place] [address] Result Comment: Body Fluid Albumin may be [...] document C49A. RAJEEV Bui: Clinical Laboratory Standards Boody: 2007.2. Dionicio SERNA. Serum to ascites albumin gradient. UpToDate. 2015. Accessed on September 28, 2015. Performed By: #### 2 344-0, 2529-6, 2881-1, 59528-3, 29012-4, 1747-5 ####[facility] LABCLIA [id number] [place] [address] [place] BF STAFF REVIEW (LAB ORDER)o sandro 05-18-2024 BF REVIEW Reviewed by Lisy Acuña M.D., Ph.D Normal [facility] Comment on above: Order Comment: Alexandru campos Type: FLUID SPECIMENOrdering Facility: [facility] Address: [address] [place] [address] Performed By: #### C CBF, [id number], [id number] ####[facility] LABCLIA [id number] [place] [address] [place] BF STAFF COMMENTS Numerous mature polymorphous lymphocytes. If there is clinical concern for a lymphoproliferative disorder, please order flow cytometric analysis. Normal [facility] Comment on above: Order Comment: Speci men Type: FLUID SPECIMENOrdering Facility: [facility] Address: [address] [place] [address] Performed By: #### C CBF, [id number], [id number] ####[facility] LABCLIA [id number] [place] [address] [place] BODY FLUID CELL COUNTon 12-0 Clarity (Unsp spec) Clear Normal Clear [facility] Comment on above: Order Comment: Speci men Type: FLUID SPECIMENOrdering Facility: [facility] Address: [address] [place] [address] Performed By: #### C CBF, [id number], [id number] ####[facility] LABCLIA [id number] [place] [address] [place] Color (Body fld) Yellow Normal Yellow [facility] Comment on above: Order Comment: Speci men Type: FLUID SPECIMENOrdering Facility: [facility] Address: [address] [place] [address] Performed By: #### C CBF, [id number], [id number] ####[facility] LABCLIA [id number] [place] [id number] [place] RBC Manual cnt (Body fld) [#/Vol] <2000 Normal <2000 [facility] Comment on above: Order Comment: Speci men Type: FLUID SPECIMENOrdering Facility: [facility] Address: [address] [place] [address] Performed By: #### C CBF, [id number], [id number] ####[facility] LABCLIA [id number] [place] [address] [place] Specimen source Nom (Body fld) Pleural Cavity, Right Normal [facility] Comment on above: Order Comment: Speci men Type: FLUID SPECIMENOrdering Facility: [facility] Address: [address] [place] [address] Performed By: #### C CBF, [id number], [id number] ####[facility] LABCLIA [id number] [place] [address] [place] WBC Manual cnt (Body fld) [#/Vol] 443 /uL Normal <1000 [facility] Comment on above: Order Comment: Speci men Type: FLUID SPECIMENOrdering Facility: [facility] Address: [address] [place] [address] Performed By: #### C CBF, [id number], [id number] ####[facility] LABCLIA [id number] [place] [address] [place] Bacteria Fld Culton 05-18-20 24 Bacteria identified Cx Nom (Body fld) CULTURE, BODY FLD: No growth GRAM STAIN: No organisms seen Few Polymorphonuclear leukocytes Many Mononuclear cells Gram stain performed on cytospun specimen. Gram stain from primary specimen Normal [facility] Comment on above: Performed By: #### 6 11-4, 77932-3 ####[facility] LABCLIA [id number] [place] [address] [place] CNOVon 05-18-2024 CNOV Normal [facility] CYTOLOGY NON-GYNon 4 CASE REPORT Normal [facility] Comment on above: Order Comment: Speci men Type: FLUID SPECIMENOrdering Facility: [facility] Address: [address] [place] [address] Result Comment: Medi adrianne Cytology Report Case: [id number] Provider: Louise Cesar MD Collected: 05/18/2024 12:43 PMOrdering Location: Pulmonary Medicine Received: 05/19/2024 05:22 AMPathologist: Tracy Collins MDSpecimen: Pleural Cavity, Right Performed By: #### C YTONON ####[facility] LABCLIA [id number] [place] [address] [place] CLINICAL HISTORY pleural effusion Normal [facility] Comment on above: Order Comment: Speci men Type: FLUID SPECIMENOrdering Facility: [facility] Address: [address] [place] [address] Performed By: #### C YTONON ####[facility] LABCLIA [id number] [address] [place] FINAL DIAGNOSIS Normal [facility] Comment on above: Order Comment: Speci men Type: FLUID SPECIMENOrdering Facility: [facility] Address: [address] [place] [address] Result Comment: A - Pleural Cavity, Right, Sterile Fluid/Body Fluid Negative for malignant cells. Chronic inflammation.The following cell blocks were associated with this case:A1\X09\Cell Block, Alcohol Fixed\X09\ Performed By: #### C YTONON ####[facility] LABCLIA [id number] [address] [place] FINAL PERFORMING LAB Normal [facility] Comment on above: Order Comment: Speci men Type: FLUID SPECIMENOrdering Facility: [facility] Address: [address] [place] [address] Result Comment: Tech nical component, volunteer assistant screening performed at [facility], [address] [place] [address] CLIA# [id number] interpretation performed at [facility], [address] [place] [address] CLIA# [id number] Director: Ramos Strickland M.D. Performed By: #### C YTONON ####[facility] LABCLIA [id number] [place] [address] [place] GROSS DESCRIPTION Normal [facility] Comment on above: Order Comment: Speci men Type: FLUID SPECIMENOrdering Facility: [facility] Address: [address] [place] [address] Result Comment: A. P leural Cavity, Right20 cc hazy yellow fluid with material. ThinPrep and Cell Block prepared. Performed By: #### C YTONON ####[facility] LABIA [id number] [place] [address] [place] Cholest Fld-mCncon 4 Cholesterol (Body fld) [Mass/Vol] 30 mg/dL Normal See Comment [facility] Comment on above: Order Comment: Speci men Type: FLUID SPECIMENOrdering Facility: [facility] Address: [address] [place] [address] Result Comment: SYNO VIAL FLUIDS:Synovial fluid cholesterol [...] document C49-A. RAJEEV Bui: Clinical Laboratory Standards Boody; 2007. Performed By: #### 2 344-0, 2529-6, 2881-1, 74107-5, 89084-4, 1747-5 ####[facility] LABCLIA [id number] [place] [address] [place] Fluid Nom (Body fld) Pleural Cavity, Right Normal [facility] Comment on above: Order Comment: Speci men Type: FLUID SPECIMENOrdering Facility: [facility] Address: [address] [place] [address] Performed By: #### 2 344-0, 2529-6, 2881-1, 56680-8, 28630-8, 1747-5 ####[facility] LABCLIA [id number] [place] [id number] [facility] Performed By: #### L [id number] ####[facility] LABCLIA [id number] [place] [id number] [place] [facility] Comprehensive metabolic 2000 panelon 05-18-2024 Albumin [Mass/Vol] 3.8 g/dL Low 3.9-4.9 [facility] Comment on above: Order Comment: Speci men Type: BLOOD SPECIMENOrdering Facility: [facility] Address: [address] [place] [address] Performed By: #### 2 532-0, 23104-4 ####[facility] LABCLIA [id number] [place] [address] [place] ALP [Catalytic activity/Vol] 174 U/L High 38-113 [facility] Comment on above: Order Comment: Speci men Type: BLOOD SPECIMENOrdering Facility: [facility] Address: [address] [place] [address] Performed By: #### 2 532-0, 63946-9 ####[facility] LABCLIA [id number] [place] [address] [place] ALT [Catalytic activity/Vol] 22 U/L Normal 10-54 [facility] Comment on above: Order Comment: Speci men Type: BLOOD SPECIMENOrdering Facility: [facility] Address: [address] [place] [address] Performed By: #### 2 532-0, 69505-4 ####[facility] LABCLIA [id number] [place] [id number] [place] Anion gap [Moles/Vol] 16 mmol/L High 8-15 [facility] Comment on above: Order Comment: Speci men Type: BLOOD SPECIMENOrdering Facility: [facility] Address: [address] [place] [address] Performed By: #### 2 532-0, 12150-5 ####[facility] LABCLIA [id number] [place] [address] [place] AST [Catalytic activity/Vol] 28 U/L Normal 14-40 [facility] Comment on above: Order Comment: Speci men Type: BLOOD SPECIMENOrdering Facility: [facility] Address: [address] [place] [address] Performed By: #### 2 532-0, 92720-1 ####[facility] LABCLIA [id number] [place] [address] [place] Bilirubin [Mass/Vol] 0.7 mg/dL Normal 0.2-1.3 [facility] Comment on above: Order Comment: Speci men Type: BLOOD SPECIMENOrdering Facility: [facility] Address: [address] [place] [address] Performed By: #### 2 532-0, 60710-8 ####[facility] LABCLIA [id number] [place] [address] [place] Calcium [Mass/Vol] 9.1 mg/dL Normal 8.5-10.2 [facility] Comment on above: Order Comment: Speci men Type: BLOOD SPECIMENOrdering Facility: [facility] Address: [address] [place] [address] Performed By: #### 2 532-0, 88008-8 ####[facility] LABCLIA [id number] [place] [address] [place] Chloride [Moles/Vol] 98 mmol/L Normal 98-107 [facility] Comment on above: Order Comment: Speci men Type: BLOOD SPECIMENOrdering Facility: [facility] Address: [address] [place] [address] Performed By: #### 2 532-0, 95303-1 ####[facility] LABCLIA [id number] [place] [address] [place] CO2 [Moles/Vol] 28 mmol/L Normal 22-30 [facility] Comment on above: Order Comment: Speci men Type: BLOOD SPECIMENOrdering Facility: [facility] Address: [address] [place] [address] Performed By: #### 2 532-0, 25835-5 ####[facility] LABIA [id number] [place] [address] [place] Creatinine [Mass/Vol] 1.14 mg/dL Normal 0.73-1.22 [facility] Comment on above: Order Comment: Speci men Type: BLOOD SPECIMENOrdering Facility: [facility] Address: [address] [place] [address] Performed By: #### 2 532-0, 79372-2 ####[facility] LABIA [id number] [place] [address] [place] Creatinine and Glomerular filtration rate.predicted panel (S/P/Bld) 68 mL/min/1.73m??? Normal >=60 [facility] Comment on above: Order Comment: Speci men Type: BLOOD SPECIMENOrdering Facility: [facility] Address: [address] [place] [address] Result Comment: Kristel mated Glomerular Filtration Rate [...] actual GFR. Performed By: #### 2 532-0, 31814-7 ####[facility] LABIA [id number] [place] [address] [place] Glucose [Mass/Vol] 112 mg/dL High 74-99 [facility] Comment on above: Order Comment: Speci men Type: BLOOD SPECIMENOrdering Facility: [facility] Address: [address] [place] [address] Result Comment: The [place] Diabetes Association (ADA) provides guidance for cutoff [...] Standards of Medical Care in Diabetes 2016, [place] Diabetes Association. Diabetes Care. 2016.39(Suppl 1). Performed By: #### 2 532-0, 67169-7 ####[facility] LABCLIA [id number] [place] [address] [place] Potassium [Moles/Vol] 3.4 mmol/L Low 3.7-5.1 [facility] Comment on above: Order Comment: Alexandru campos Type: BLOOD SPECIMENOrdering Facility: [facility] Address: [address] [place] [address] Performed By: #### 2 532-0, 97151-8 ####[facility] LABCLIA [id number] [place] [address] [place] Protein [Mass/Vol] 6.6 g/dL Normal 6.3-8.0 [facility] Comment on above: Order Comment: Speci men Type: BLOOD SPECIMENOrdering Facility: [facility] Address: [address] [place] [address] Performed By: #### 2 532-0, 73770-4 ####[facility] LABCLIA [id number] [place] [address] [place] Sodium [Moles/Vol] 142 mmol/L Normal 136-144 [facility] Comment on above: Order Comment: Speci men Type: BLOOD SPECIMENOrdering Facility: [facility] Address: [address] [place] [address] Performed By: #### 2 532-0, 19872-7 ####[facility] LABCLIA [id number] [place] [address] [place] Urea nitrogen [Mass/Vol] 21 mg/dL Normal 9-24 [facility] Comment on above: Order Comment: Speci men Type: BLOOD SPECIMENOrdering Facility: [facility] Address: [address] [place] [address] Performed By: #### 2 532-0, 84531-4 ####[facility] LABCLIA [id number] [place] [address] [place] FATTY ACIDS PROFILE, ESSENTI Dewayne 05-18-2024 A-LINOLENIC ACID, C18 3W3 43 nmol/mL Normal 20-200 [facility] Comment on above: Order Comment: Speci men Type: BLOOD SPECIMENOrdering Facility: [facility] Address: [address] [place] [address] Performed By: #### C FAPRO ####[facility] [id number] [place] [address] ARACHIDIC ACID, C20 0 18 nmol/mL Normal 8-43 [facility] Comment on above: Order Comment: Speci men Type: BLOOD SPECIMENOrdering Facility: [facility] Address: [address] [place] [address] Performed By: #### C FAPRO ####[facility]IESCLIA [id number] [place] [address] ARACHIDONIC ACID, C20 4W6 672 nmol/mL Normal 310-1420 [facility] Comment on above: Order Comment: Speci men Type: BLOOD SPECIMENOrdering Facility: [facility] Address: [address] [place] [address] Performed By: #### C FAPRO ####[facility]IESCLIA [id number] [place] [address] DHA, C22 6W3 99 nmol/mL Normal 45-365 [facility] Comment on above: Order Comment: Speci men Type: BLOOD SPECIMENOrdering Facility: [facility] Address: [address] [place] [address] Performed By: #### C FAPRO ####[facility]IESCLIA [id number] [place] [address] DOCOSENOIC ACID, C22 1 4 nmol/mL Normal 1-10 [facility] Comment on above: Order Comment: Speci men Type: BLOOD SPECIMENOrdering Facility: [facility] Address: [address] [place] [address] Performed By: #### C FAPRO ####[facility]IESCLIA [id number] [place] [address] DPA, C22 5W3 30 nmol/mL Normal 13-75 [facility] Comment on above: Order Comment: Speci men Type: BLOOD SPECIMENOrdering Facility: [facility] Address: [address] [place] [address] Performed By: #### C FAPRO ####[facility]IESCLIA [id number] [place] [address] DPA, C22 5W6 13 nmol/mL Normal 6-55 [facility] Comment on above: Order Comment: Speci men Type: BLOOD SPECIMENOrdering Facility: [facility] Address: [address] [place] [address] Performed By: #### C FAPRO ####[facility]IESCLIA [id number] [place] [address] DTA, C22 4W6 18 nmol/mL Normal 10-40 [facility] Comment on above: Order Comment: Speci men Type: BLOOD SPECIMENOrdering Facility: [facility] Address: [address] [place] [address] Performed By: #### C FAPRO ####[facility]IESCLIA [id number] [place] [address] EER FATTY ACIDS PROF, ESSENTIAL SP See Note Normal [facility] Comment on above: Order Comment: Speci men Type: BLOOD SPECIMENOrdering Facility: [facility] Address: [address] [place] [address] Result Comment: Auth orized individuals can access the [facility] Report using the following link:[email or web address] By: CHACORTA [address] [place], [place] [address]Vxlxmirdrh Director: Anne-Marie Correa MD, PhDCLIA Number: [id number] Performed By: #### C FAPRO ####[facility]ENTERCLIA [id number] [place] [address] EPA, C20 5W3 22 nmol/mL Normal 8-130 [facility] Comment on above: Order Comment: Speci men Type: BLOOD SPECIMENOrdering Facility: [facility] Address: [address] [place] [address] Performed By: #### C FAPRO ####[facility]IESCLIA [id number] [place] [address] G-LINOLENIC ACID, C18 3W6 20 nmol/mL Normal 10-120 [facility] Comment on above: Order Comment: Speci men Type: BLOOD SPECIMENOrdering Facility: [facility] Address: [address] [place] [address] Performed By: #### C FAPRO ####[facility]IESCLIA [id number] [place] [address] C-S-XHULLQXVV C20:3W6 93 nmol/mL Normal 45-340 [facility] Comment on above: Order Comment: Speci men Type: BLOOD SPECIMENOrdering Facility: [facility] Address: [address] [place] [address] Performed By: #### C FAPRO ####[facility]IESCLIA [id number] [place] [address] HEXADECENOIC ACID, C16 1W9 26 nmol/mL Normal 14-95 [facility] Comment on above: Order Comment: Speci men Type: BLOOD SPECIMENOrdering Facility: [facility] Address: [address] [place] [address] Performed By: #### C FAPRO ####[facility]IESCLIA [id number] [place] [address] INTERPRETATION, FATTY ACID PROFILE Normal Normal [facility] Comment on above: Order Comment: Speci men Type: BLOOD SPECIMENOrdering Facility: [facility] Address: [address] [place] [address] Result Comment: Norm al fatty acid profile.Results reviewed and interpreted by Rosemarie Painter MD, PhD, FACINTERPRETIVE INFORMATION: Fatty Acids Profile, Essential Ser/PlasThis test does not screen for disorders of peroxisomalbiogenesis/function.This test was developed and its performance characteristicsdetermined by [employer]. It has not been cleared orapproved by the [place] Food and Drug Administration. This test wasperformed in a CLIA certified laboratory and is intended forclinical purposes. Performed By: #### C FAPRO ####[facility]IESCLIA [id number] [place] [address] LAURIC ACID, C12 0 22 nmol/mL Normal 1-200 [facility] Comment on above: Order Comment: Speci men Type: BLOOD SPECIMENOrdering Facility: [facility] Address: [address] [place] [address] Performed By: #### C FAPRO ####[facility]IESCLIA [id number] [place] [address] LINOLEIC ACID, C18 2W6 2079 nmol/mL Normal 4912-6578 [facility] Comment on above: Order Comment: Speci men Type: BLOOD SPECIMENOrdering Facility: [facility] Address: [address] [place] [address] Performed By: #### C FAPRO ####[facility]IESCLIA [id number] [place] [address] MEAD ACID, C20 3W9 6 nmol/mL Normal 1-35 [facility] Comment on above: Order Comment: Speci men Type: BLOOD SPECIMENOrdering Facility: [facility] Address: [address] [place] [address] Performed By: #### C FAPRO ####[facility]IESCLIA [id number] [place] [address] MYRISTIC ACID, C14 0 69 nmol/mL Normal 20-520 [facility] Comment on above: Order Comment: Speci men Type: BLOOD SPECIMENOrdering Facility: [facility] Address: [address] [place] [address] Performed By: #### C FAPRO ####[facility]IESCLIA [id number] [place] [address] NERVONIC ACID, C24 1W9 106 nmol/mL Normal 35-145 [facility] Comment on above: Order Comment: Speci men Type: BLOOD SPECIMENOrdering Facility: [facility] Address: [address] [place] [address] Performed By: #### C FAPRO ####[facility]IESCLIA [id number] [place] [address] OLEIC ACID, C18 1W9 1564 nmol/mL Normal 740-3900 [facility] Comment on above: Order Comment: Speci men Type: BLOOD SPECIMENOrdering Facility: [facility] Address: [address] [place] [address] Performed By: #### C FAPRO ####[facility]IESCLIA [id number] [place] [address] PALMITIC ACID, C16 0 1959 nmol/mL Normal 4917-4834 [facility] Comment on above: Order Comment: Speci men Type: BLOOD SPECIMENOrdering Facility: [facility] Address: [address] [place] [address] Performed By: #### C FAPRO ####[facility]IESCLIA [id number] [place] [address] PALMITOLEIC ACID, C16 1W7 105 nmol/mL Normal 35-580 [facility] Comment on above: Order Comment: Speci men Type: BLOOD SPECIMENOrdering Facility: [facility] Address: [address] [place] [address] Performed By: #### C FAPRO ####[facility]IESCLIA [id number] [place] [address] STEARIC ACID, C18 0 606 nmol/mL Normal 280-1250 [facility] Comment on above: Order Comment: Speci men Type: BLOOD SPECIMENOrdering Facility: [facility] Address: [address] [place] [address] Performed By: #### C FAPRO ####[facility]IESCLIA [id number] [place] [address] TOTAL FATTY ACIDS 7.7 mmol/L Normal 4.5-15.0 [facility] Comment on above: Order Comment: Speci men Type: BLOOD SPECIMENOrdering Facility: [facility] Address: [address] [place] [address] Performed By: #### C FAPRO ####[facility]IESCLIA [id number] [place] [address] TOTAL MONOUNSATURATED ACIDS 1.9 mmol/L Normal 0.9-4.7 [facility] Comment on above: Order Comment: Speci men Type: BLOOD SPECIMENOrdering Facility: [facility] Address: [address] [place] [address] Performed By: #### C FAPRO ####[facility]IESCLIA [id number] [place] [address] TOTAL POLYUNSATURATED ACIDS 3.1 mmol/L Normal 2.1-6.2 [facility] Comment on above: Order Comment: Speci men Type: BLOOD SPECIMENOrdering Facility: [facility] Address: [address] [place] [address] Performed By: #### C FAPRO ####[facility]IESCLIA [id number] [place] [address] TOTAL SATURATED ACIDS 2.7 mmol/L Normal 1.5-5.3 [facility] Comment on above: Order Comment: Speci men Type: BLOOD SPECIMENOrdering Facility: [facility] Address: [address] [place] [address] Performed By: #### C FAPRO ####[facility]IESCLIA [id number] [place] [address] TOTAL W3 0.19 mmol/L Normal 0.12-0.55 [facility] Comment on above: Order Comment: Speci men Type: BLOOD SPECIMENOrdering Facility: [facility] Address: [address] [place] [address] Performed By: #### C FAPRO ####[facility]IESCLIA [id number] [place] [address] TOTAL W6 2.9 mmol/L Normal 1.8-5.7 [facility] Comment on above: Order Comment: Speci men Type: BLOOD SPECIMENOrdering Facility: [facility] Address: [address] [place] [address] Performed By: #### C FAPRO ####[facility]IESCLIA [id number] [place] [address] TRIENE/TETRAENE RATIO 0.009 Normal 0.004-0.051 [facility] Comment on above: Order Comment: Speci men Type: BLOOD SPECIMENOrdering Facility: [facility] Address: [address] [place] [address] Performed By: #### C FAPRO ####[facility]IESCLIA [id number] [place] [address] VACCENIC ACID, C18 1W7 110 nmol/mL Normal 50-250 [facility] Comment on above: Order Comment: Speci men Type: BLOOD SPECIMENOrdering Facility: [facility] Address: [address] [place] [address] Performed By: #### C FAPRO ####[facility]IESCLIA [id number] [place] [address] FLOW CYTOMETRY FOR LEUKEMIA/ LYMPHOMA (FCLL) PERFORMABLEon 05-18-2024 FLOW CYTOMETRY ORDER STATUS Results will be reported under F case ID when completed Normal [facility] Comment on above: Order Comment: Speci men Type: FLUID SPECIMENOrdering Facility: [facility] Address: [address] [place] [address] Result Comment: Zaire ected result: Previously reported as A bone marrow sample was received for potential flow cytometry studies. Following morphologic review, flow cytometric studies will be ordered by the hematopathologist if testing is indicated. on 05/20/2024 at1:05 PM EST. Performed By: #### F CLLP ####[facility] LABCLIA [id number] [address] [place] FLOW CYTOMETRY FOR LEUKEMIA/ LYMPHOMA (FCLL) REFLEXon 05-18-2024 DIAGNOSIS COMMENT Normal [facility] Comment on above: Order Comment: Speci men Type: FLUID SPECIMENOrdering Facility: [facility] Address: [address] [place] [address] Result Comment: This assay is not designed to detect minimal residual disease, plasma cell neoplasms, or myeloid antigen maturational patterns.This test was developed and its performance characteristics determined by [facility]'s [facility] Pathology and Laboratory Medicine [place] ([facility]). It has not been cleared or approved by the FDA. -[facility] is regulated under CLIA as qualified to perform high-complexity testing. This test is used for clinical purposes. It should not be regarded as investigational or for research. Performed By: #### F CLLRFLX ####[facility] LABCLIA [id number] [address] [place] FINAL PERFORMING LAB Normal [facility] Comment on above: Order Comment: Speci men Type: FLUID SPECIMENOrdering Facility: [facility] Address: [address] [place] [address] Result Comment: Diag nostic interpretation performed at [facility], [address] [place] [address] CLIA# [id number] Director: Ramos Strickland M.D. Performed By: #### F CLLRFLX ####[facility] LABIA [id number] [address] STATES OF [facility] FLOW CYTOMETRY RESULTS Normal [facility] Comment on above: Order Comment: Speci men Type: FLUID SPECIMENOrdering Facility: [facility] Address: [address], [place] [address] Result Comment: Spec imen type: Pleural fluidTotal nucleated cell count: 320,000 totalRed blood cell count: N/ADifferential (serous fluid): See body fluid manual differentialMorphology comments: UnremarkableViability: 91%Flow Cytometry Body Fluid ImmunophenotypingMarker Normal Cell Type Result (Lymphocytes)CD3 T-cells Normal PatternCD4 T-cell subset Normal PatternCD5 T-cells Normal PatternCD7 T/NK-cells Normal PatternCD8 T-cell subset Normal UlsvzkbPL29 Myeloid Normal BhlfvniWT76/56 NK cells Normal IinroxvLH84 B-cells Normal AamrqycYW68 Blasts Normal WjrtwplIK57 Ramos-leukocyte Normal Patternkappa/lambda B-cells PolytypicFlow cytometric analysis of the fluid reveals that 40% of total events have the CD45 and light scatter properties of lymphocytes. The lymphocytes are composed of T-cells (54%, CD4:CD8 ratio = 22.32), NK cells (37%), and polytypic B-cells (9%). Granulocytic elements are 1% of events. Blasts are not detected. Performed By: #### F CLLRFLX ####[facility] LABIA [id number] [place] [address] [place] [facility] GROSS DESCRIPTION Normal [facility] Comment on above: Order Comment: Speci men Type: FLUID SPECIMENOrdering Facility: [facility] Address: [address] [place] [address] Result Comment: A. P leural Cavity, RightRECEIVED 4 ML OF PLEURAL FLUID Entirely submitted for Flow Cytometry. Performed By: #### F CLLRFLX ####[facility]ITAL[facility] [id number] [place] [address] [place] INTERPRETATION Normal [facility] Comment on above: Order Comment: Speci men Type: FLUID SPECIMENOrdering Facility: [facility] Address: [address] [place] [address] Result Comment: Ther e is no evidence of involvement by a lymphoproliferative disorder or abnormal blast population. Correlation with the clinical findings is suggested.FRANCOISE/SHELBY 05/20/24 Performed By: #### F CLLRFLX ####[facility] LABIA [id number] [place] [address] [place] Glucose Fld-ncon Glucose (Body fld) [Mass/Vol] 106 mg/dL Normal See Comment [facility] Comment on above: Order Comment: Alexandru campos Type: FLUID SPECIMENOrdering Facility: [facility] Address: [address] [place] [address] Result Comment: Syno vial fluid: Synovial fluid [...] document C49A. RAJEEV Bui: Clinical Laboratory Standards [place]: 2007. Performed By: #### 2 344-0, 2529-6, 2881-1, 17676-3, 51548-6, 1747-5 ####[facility] LABIA [id number] [place] [address] [place] LDH Fld-[facility] 05-18-2024 LDH (Body fld) [Catalytic activity/Vol] 86 U/L Normal See Comment [facility] Comment on above: Order Comment: Alexandru campos Type: FLUID SPECIMENOrdering Facility: [facility] Address: [address] [place] [address] Result Comment: Pleu ral fluids: Pleural fluid [...] document C49A. RAJEEV Bui: Clinical Laboratory Standards [place]: 2007.Reference: 2. Rafael STARK, Fei Doyle. Body [...] Performed By: #### 2 344-0, 2529-6, 2881-1, 54253-4, 30606-8, 1747-5 ####[facility] LABCLIA [id number] [place] [address] [place] LDH SerPl-cCncon 05-18-2024 LDH [Catalytic activity/Vol] 209 U/L Normal 135-225 [facility] Comment on above: Order Comment: Speci men Type: BLOOD SPECIMENOrdering Facility: [facility] Address: [address] [place] [address] Result Comment: Hemo lysis present. The origin of the hemolysis, in vitro versus an in vivo hemolytic process, cannot be distinguished via this assay alone. In vitro hemolysis may lead to non-physiological (spurious) elevation in lactate dehydrogenase (LDH) results. Theresult should be interpreted in context of the clinical setting and other test results. Suggest reorder as clinically indicated. Performed By: #### 2 532-0, 69005-8 ####[facility] LABCLIA [id number] [place] [address] [place] MANUAL DIFFERENTIAL, BODY FL UIDon 05-18-2024 DIF TTL, BODY FLUID 100 cells counted Normal [facility] Comment on above: Order Comment: Speci men Type: FLUID SPECIMENOrdering Facility: [facility] Address: [address] [place] [address] Performed By: #### C CBF, [id number], [id number] ####[facility] LABCLIA [id number] [place] [address] [place] EOSIN%, BF 2 % Normal [facility] Comment on above: Order Comment: Speci men Type: FLUID SPECIMENOrdering Facility: [facility] Address: [address] [place] [address] Performed By: #### C CBF, [id number], [id number] ####[facility] LABCLIA [id number] [place] [address] [place] LYMPH%, BF 80 % High 18-36 [facility] Comment on above: Order Comment: Speci men Type: FLUID SPECIMENOrdering Facility: [facility] Address: [address] [place] [address] Result Comment: Zaire ected result: Previously reported as 75 % on 05/19/2024 at 6:29 AM EST. Performed By: #### C CBF, [id number], [id number] ####[facility] LABCLIA [id number] [place] [address] [place] MACRO%, BF 4 % Low 64-80 [facility] Comment on above: Order Comment: Speci men Type: FLUID SPECIMENOrdering Facility: [facility] Address: [address] [place] [address] Performed By: #### C CBF, [id number], [id number] ####[facility] LABCLIA [id number] [place] [address] [place] NEUT%, BF 14 % High 0-1 [facility] Comment on above: Order Comment: Speci men Type: FLUID SPECIMENOrdering Facility: [facility] Address: [address] [place] [address] Performed By: #### C CBF, [id number], [id number] ####[facility] LABCLIA [id number] [place] [address] [place] REAC LYMPH %, BF Normal [facility] Comment on above: Order Comment: Speci men Type: FLUID SPECIMENOrdering Facility: [facility] Address: [address] [place] [address] Result Comment: Zaire ected result: Previously reported as 5 % on 05/19/2024 at 6:29 AM EST. Performed By: #### C CBF, [id number], [id number] ####[facility] LABCLIA [id number] [place] [address] [place] Microorganism Spec Culton Microorganism identified Cx Nom (Unsp spec) CULTURE, AFB: No Acid Fast Bacilli isolated after 42 days AFB STAIN: No acid fast bacilli seen by fluorochrome stain Normal [facility] Comment on above: Performed By: #### 6 11-4, 87602-9 ####[facility] LABCLIA [id number] [place] [address] [place] PH PLEURAL FLUID (FOR USE [facility])on 05-18-2024 pH (Body fld) 7.9 [pH] Normal [facility] Comment on above: Order Comment: Speci men Type: FLUID SPECIMENOrdering Facility: [facility] Address: [address] [place] [address] Result Comment: No r eference range has been established for this specimen type.This test was developed, and its performance characteristics determined by the [facility] Department of Pathology and Laboratory Medicine. It has not been cleared or approved by the FDA. The [facility] Department of Pathology and Laboratory Medicine is regulated under CLIA as qualified to perform high-complexity testing. This test is used for clinical purposes. It should not be regarded as investigational or for research. Performed By: #### L [id number] ####[facility] LABCLIA [id number] [place] [address] [place] Prot Fld-mCncon 05-18-2024 Protein (Body fld) [Mass/Vol] 2.2 g/dL Normal See Comment [facility] Comment on above: Order Comment: Speci men Type: FLUID SPECIMENOrdering Facility: [facility] Address: [address] [place] [address] Result Comment: Sero us fluids: Effusions are [...] document C49A. RAJEEV Bui: Clinical Laboratory Standards Boody: 2006. Performed By: #### 2 344-0, 2529-6, 2881-1, 65076-5, 32243-2, 1747-5 ####[facility]CLIA [id number] [facility] [id number] [place], [place] [id number] [place] Trigl Fld-mCncon 05-18-2024 Triglyceride (Body fld) [Mass/Vol] 13 mg/dL Normal [facility] Comment on above: Order Comment: Alexandru campos Type: FLUID SPECIMENOrdering Facility: [facility] Address: [address] [place] [address] Result Comment: Syno vial fluids: Synovial fluid [...] document C49A. RAJEEV Bui: Clinical Laboratory Standards Boody; 2007. Performed By: #### 2 344-0, 2529-6, 2881-1, 46417-5, 73881-9, 1747-5 ####[facility] LABJENAE [id number] [facility] [place] [id number] [place] XR CHEST 2V FRONTAL/LATon XR CHEST 2V FRONTAL/LAT Normal [facility] XR Chest PA and Lateralon IMPRESSION: Slight decrease in the right pleural effusion.. Drum Handler: ALONSO Transcribe Date/Time: May 18 2024 1:40P Dictated by : REBECCA LOVELACE MD This examination was interpreted and the report reviewed and electronically signed by: REBECCA LOVELACE MD on May 18 2024 1:46PM [facility] DIVISION OF RADIOLOGY * * *Final [...] the thoracic spine. DIVISION OF RADIOLOGY Provider, [facility] - 05/18/2024 * * *Final Report* * [...] Slight decrease in the right pleural effusion.. Drum Handler: PSCAc Transcribe Date/Time: May 18 2024 1:40P Dictated by : REBECCA LOVELACE MD This examination was interpreted and the report reviewed and electronically signed by: REBECCA LOVELACE MD on May 18 2024 1:46PM EST [facility] Radiology Study observation (narrative) [facility] XR Chest PA and LateralOrder ed By: Ccf Provider on 05-18-2024 [facility] ANES POSTPROC EVALon 024 ANES POSTPROC EVAL HNO ID: [id number] Author: STEVEN DONNELLY MD Service: Anesthesiology Author Type: Anesthesiologist Type: Anesthesia Postprocedure Evaluation Filed: 04/28/2024 16:14 Note Text: POST ANESTHESIA EVALUATION NOTE : 1950 Procedure Summary Date: 04/28/24 Room / Location: [facility] Endoscopy - ENDO Anesthesia Start: 1129 Anesthesia Stop: 1210 Procedures: EGD DIAGNOSTIC COLONOSCOPY DIAGNOSTIC Diagnosis: Diarrhea, unspecified type Scheduled Providers: Vic Ponce MD; Steven Donnelly I, MD; Julian Batista APRN.SANDFILL OPERATOR Responsible Provider: Steven Donnelly I, MD Anesthesia [...] April 28, 2024 TIME: 4:14 PM CSN: [id number] Normal [facility] ANES PRE-OPon 04-28-2024 ANES PRE-OP HNO ID: [id number] Author: STEVEN DONNELLY MD Service: Anesthesiology Author Type: Anesthesiologist Type: Anesthesia Preprocedure Evaluation Filed: 04/28/2024 11:18 Note Text: ANESTHESIOLOGY DAY OF SURGERY NOTE : 1950 Procedure Information Date/Time: 04/28/24 1230 Scheduled providers: Vic Ponce MD; Steven Donnelly I, MD; Julian Batista APRN.SANDFILL OPERATOR Procedures: EGD DIAGNOSTIC COLONOSCOPY DIAGNOSTIC Location: [facility] Endoscopy - ENDO Estimated body mass index [...] and consent discussed: yes. Patient / Responsible Constitution Party agrees to proceed: yes Patient / Surrogate agrees to blood products: blood products not planned DNR status not reviewed with patient and/or family prior to surgery. Significant changes in the patient condition since the History and Physical, not otherwise documented in primary service progress note: no. No vitals data found for the desired time range. Outpatient Medications as of 04/28/2024 Medication Sig - [id number] ORAL Take by mouth. - iv contrast [...] 4 days and stip - calcium carbonate (OS-ADRIANNE 500) 500 mg calcium (1,250 mg) tablet [...] April 28, 2024 TIME: 11:17 AM CSN: [id number] Normal [facility] ANES PRE-OP Normal [facility] Colonoscopyon 04-28-2024 Colonoscopy [facility] Gastrointestinal Endoscopy Patient Name: Sav Raymundo Procedure Date: 04/28/2024 11:16 AM Date of : 1950 Admit Type: Outpatient Age: 74 Room: [place] [address] Gender: Male Note Status: Finalized Attending MD: Vic Ponce MD, [id number] Procedure: Colonoscopy Indications: Chronic diarrhea Comorbidities Patient with chronic right pleural effusion unknown etiology/origin with N,V, diarrhea and weight loss. Providers: Vic Ponce MD, Riley Almonte, EVAN, Abbie Ivey, EVAN, Adri Bradley, EVAN (Assisting [...] physician, the nurse, the anesthesiologist and the fisher troll line in the procedure room at 11:29 AM. [...] prior dose. Procedure Code(s): --- Professional --- 90646, Colonoscopy, flexible; with biopsy, single or multiple Diagnosis Code(s): --- Professional --- K52.9, Noninfective gastroenteritis and colitis, unspecified CPT copyright 2020 [employer]. All rights reserved. The codes documented in this report are preliminary and upon certified driver examiner review may be revised to meet current compliance requirements. Attending Participation: I personally performed the entire procedure. Scope In: 11:48:20 AM Scope Out: 11:55:18 AM (more content not included)... Normal [facility] Colonoscopy studyon 04-28-20 [facility] Gastrointestinal Endoscopy Patient Name: Sav Raymundo Procedure Date: 04/28/2024 11:16 AM Date of : 1950 Admit Type: Outpatient Age: 74 Room: [place] [address] Gender: Male Note Status: Finalized Attending MD: Vic Ponce MD, [id number] Procedure: Colonoscopy Indications: Chronic diarrhea Comorbidities Patient with chronic right pleural effusion unknown etiology/origin with N,V, diarrhea and weight loss. Providers: Vic Ponce MD, Riley Almonte, RN, Abbie Ivey, RN, Adri Bradley, [...] physician, the nurse, the anesthesiologist and the fisher troll line in the procedure room at 11:29 AM. [...] polyps, s (more content not included)... PROVATION [facility] Radiology Study observation (narrative) [facility] EGD Study observation Narrat lisandroon 04-28-2024 [facility] Gastrointestinal Endoscopy Patient Name: Sav Raymundo Procedure Date: 04/28/2024 11:17 AM Date of : 1950 Admit Type: Outpatient Age: 74 Room: [place] [address] Gender: Male Note Status: Finalized Attending MD: Vic Ponce MD, [id number] Procedure: Upper GI endoscopy Indications: Dysphagia, Heartburn, Nausea with vomiting Providers: Vic Ponce MD, Riley Almonte, RN, Abbie Ivey, RN, Adri Bradley, [...] physician, the nurse, the anesthesiologist and the fisher troll line in the procedure room at 11:29 AM. [...] incisors. T (more content not included)... PROVATION [facility] Radiology Study observation (narrative) [facility] HISTORY PHYSICALon HISTORY PHYSICAL HNO ID: [id number] Author: VIC PONCE MD Service: Gastroenterology Author [...] MAC Additional Comments: None Vic Ponce MD [facility] NURSING PROGon 04-28-2024 NURSING PROG HNO ID: [id number] Author: JAHAIRA HOOD RN Service: Nursing Author Type: Registered Nurse [...] REFERRAL (RECOMMENDATION): None Electronically Signed By: Jahaira Hood [facility] NURSING PROG HNO ID: [id number] Author: MAUREEN LAUGHLIN RN Service: ? Author [...] (RECOMMENDATION): None Electronically Signed By: Maureen Laughlin [facility] NURSING PROG Normal [facility] SURGICAL PATHOLOGYon 024 CASE REPORT [facility] Comment on above: Order Comment: Speci men Type: TISSUE SPECIMEN [facility]ing Facility: [facility] Address: [address] [place] [address] Result Comment: Surg ical Pathology Report Case: [id number] Authorizing Provider: Vic Ponce MD Collected: 04/28/2024 11:37 AM Ordering Location: [facility] Received: 04/28/2024 01:31 PM Endoscopy - ENDO Pathologist: Simba Frias MD, PhD Specimens: A) - Small Bowel, Duodenum, Biopsy B) - Stomach, Biopsy C) - Stomach, Polyp, Biopsy D) - Esophagus, Biopsy E) - Small Bowel, Ileum, Biopsy F) - Colon, Biopsy, random colon Performed By: #### S #### [facility] CLIA [id number] [address] [place] [address] STATES [facility] DIAGNOSIS COMMENT Comment F: This toy katy [...] be of value in this differential. Normal [facility] Comment on above: Order Comment: Alexandru campos Type: TISSUE SPECIMEN [facility]ing Facility: [facility] Address: [address] [place] [address] Performed By: #### S #### [facility] CLIA [id number] [address] [place] [address] FINAL DIAGNOSIS Normal [facility] Comment on above: Order Comment: Alexandru campos Type: TISSUE SPECIMEN Ordering Facility: [facility] Address: [address] [place] [address] Result Comment: A. D uodenum, biopsy: -Duodenal [...] see comment. Performed By: #### S #### [facility] CLIA [id number] [address] [place] [address] [place] FINAL PERFORMING LAB Normal [facility] Comment on above: Order Comment: Speci men Type: TISSUE SPECIMEN Ordering Facility: [facility] Address: [address] [place] [address] Result Comment: Diag nostic interpretation performed at [facility], [address] [place] [address] CLIA# [id number] Graphic Arts Technician: Ramos Strickland M.D. Performed By: #### S #### [facility] CLIA [id number] [address] [place] [address] GROSS DESCRIPTION Normal [facility] Comment on above: Order Comment: Speci men Type: TISSUE SPECIMEN Ordering Facility: [facility] Address: [address] [place] [address] Result Comment: A. S mall Bowel, Duodenum, [...] 2024 5:43 PM Gross examination performed at [facility], [address] [place] [address] Performed By: #### S #### [facility] CLIA [id number] [address] [place] [address] Upper GI endoscopyon 024 Upper GI endoscopy [facility] Gastrointestinal Endoscopy Patient Name: Sav Raymundo Procedure Date: 04/28/2024 11:17 AM Date of : 1950 Admit Type: Outpatient Age: 74 Room: [place] [address] Gender: Male Note Status: Finalized Attending MD: Vic Ponce MD, [id number] Procedure: Upper GI endoscopy Indications: Dysphagia, Heartburn, Nausea with vomiting Providers: Vic Ponce MD, Riley Almonte, EVAN, Abbie Ivey, RN, Adri Bradley, [...] physician, the nurse, the anesthesiologist and the fisher troll line in the procedure room at 11:29 AM. [...] Procedure Co (more content not included)... Normal [facility] No Panel Informationon 04-23 [facility] CT ENTEROGRAPHY W IVCONon CT ENTEROGRAPHY W IVCON Normal [facility] CT Small bowel W contrast PO and W contrast Scarlett 04-22-2024 IMPRESSION: No active bowel inflammation. Small volume ascites and small right pleural effusion, both increased since 12/20/2023. Drum Handler: ALONSO Transcribe Date/Time: Apr 22 2024 12:06P Dictated by : MILDRED GRANDA MD This examination was interpreted and the report reviewed and electronically signed by: MILDRED GRANDA MD on Apr 22 2024 12:24PM [facility] DIVISION OF RADIOLOGY * * *Final Report* * * DATE OF EXAM: Apr 22 2024 11:45AM M2C 0545 - CT ENTEROGRAPHY W IVCON / [...] catheter in place. DIVISION OF RADIOLOGY Provider, [facility] - 04/22/2024 * * *Final Report* * * DATE OF EXAM: Apr 22 2024 11:45AM [facility] 0545 - CT ENTEROGRAPHY W IVCON / [...] right pleural effusion, both increased since 12/20/2023. Drum Handler: PSCB Transcribe Date/Time: Apr 22 2024 12:06P Dictated by : MILDRED GRANDA MD This examination was interpreted and the report reviewed and electronically signed by: MILDRED GRANDA MD on Apr 22 2024 12:24PM EST [facility] Radiology Study observation (narrative) [facility] CT Small bowel W contrast PO and W contrast IVOrdered By: Ccf Provider on 04-22-2024 [facility] Calprotectin (Stl) [Mass/Mas s]on 04-21-2024 CALPROTECTIN, FECAL QUANTITATIVE 99.0 ug/g High NINF - 50 ug/g [facility] Interpretation and review of laboratory results Abnormal [facility] G. lamblia+Cryptosporidium s p Ag IA Ql (Stl)Ordered By: Bobby Mccallum on 04-21-2024 Cryptosporidium sp Ag Ql (Stl) Negative Negative [facility] G. lamblia Ag Ql (Stl) Negative Negative [facility] Interpretation and review of laboratory results Normal [facility] A single negative te st result does not rule out a parasitic infection. Due to intermittent shedding of parasites, it is recommended that three specimens collected over a 7 day period are submitted to improve detection sensitivity. [facility] Gastrointestinal pathogens i dentified BRYN+probe Nom (Stl)Ordered By: Steven Olsen on 04-21-2024 Campylobacter sp DNA BRYN+probe Nom (Unsp spec) Not detected Not Detected [facility] Interpretation and review of laboratory results Normal [facility] Salmonella sp DNA BRYN+probe Ql (Unsp spec) Not detected Not Detected [facility] Shiga toxin stx gene BRYN+probe Nom (Unsp spec) Not detected Not Detected [facility] Shigella sp DNA BRYN+probe Ql (Unsp spec) Not detected Not Detected [facility] Laboratory - Microbiology an d Antimicrobial susceptibilityon 04-21-2024 M. tuberculosis tuberculin stim IFN-g Ql (Bld) Negative [facility] No Panel Informationon 04-21 ELASTASE INTERPRETATION Normal Normal [facility] ELASTASE-1 CONCENTRATION 553 ug/g 200 - PINF ug/g [facility] Comment on above: Interpretation: <100 ug/g: Severe Exocrine Pancreatic Insufficiency 100-199 ug/g: Mild to Moderate Exocrine Pancreatic Insufficiency >=200 ug/g: Normal Interpretation and review of laboratory results Normal [facility] Mitogen minus Nil 1.19 - PINF [facility] TB Gamma Interpretation Infection with M. tuberculosis complex is unlikely. If latent tuberculosis infection is highly suspected, a negative result does not rule out the infection. Specimens from immunocompromised patients and those <5 years of age may show false negative results. In case of a contact investigation, please repeat 8-12 weeks after a known exposure. [facility] TB Nil NINF [facility] TB1 Ag minus Nil [facility] TB2 Ag minus Nil 0.00 [facility] 25(OH)D3 SerPl-mCncon 2023 25-hydroxyvitamin D3 [Mass/Vol] 36.6 ng/mL Normal 31.0-80.0 [facility] Comment on above: Order Comment: Speci men Type: BLOOD SPECIMENOrdering Facility: [facility] Address: [address] [place] [address] Result Comment: Clas sification of 25 [place] Vitamin D status:Deficiency/Insufficiency: < or = 30 ng/ml.Sufficiency/Optimal Levels: 31-80 ng/mLToxicity: > 100 ng/mL.Test performed by chemiluminescent immunoassay. Performed By: #### 1 989-3 ####[facility] LABCLIA [id number] [place] [address] [place] 25-hydroxyvitamin D3 [Mass/V ol]on 04-20-2024 Interpretation and review of laboratory results Normal [facility] The reference range interval was based on an analysis of samples from healthy adults and may not pertain to children from 0-18 years old. [facility] BLOOD TB SCREENon 04-20-2024 M. tuberculosis tuberculin stim IFN-g Ql (Bld) Negative Normal [facility] Comment on above: Order Comment: Speci men Type: BLOOD SPECIMENOrdering Facility: [facility] Address: [address] [place] [address] Performed By: #### I NFTBP ####[facility] LABCLIA [id number] [place] [address] [place] MITOGEN MINUS NIL 1.19 IU/mL Normal >=0.50 [facility] Comment on above: Order Comment: Speci men Type: BLOOD SPECIMENOrdering Facility: [facility] Address: [address] [place] [address] Performed By: #### I NFTBP ####[facility] LABCLIA [id number] [place] [address] [place] TB GAMMA INTERPRETATION Normal [facility] Comment on above: Order Comment: Speci men Type: BLOOD SPECIMENOrdering Facility: [facility] Address: [address] [place] [address] Performed By: #### I NFTBP ####[facility] LABCLIA [id number] [place] [address] [place] TB NIL <0.00 Normal <=8.00 [facility] Comment on above: Order Comment: Speci men Type: BLOOD SPECIMENOrdering Facility: [facility] Address: [address] [place] [address] Performed By: #### I NFTBP ####[facility] LABCLIA [id number] [place] [address] [place] TB1 AG MINUS NIL <0.00 Normal <0.35 [facility] Comment on above: Order Comment: Speci men Type: BLOOD SPECIMENOrdering Facility: [facility] Address: [address] [place] [address] Performed By: #### I NFTBP ####[facility] LABCLIA [id number] [place] [address] [place] TB2 AG MINUS NIL 0.00 IU/mL Normal <0.35 [facility] Comment on above: Order Comment: Speci men Type: BLOOD SPECIMENOrdering Facility: [facility] Address: [address] [place] [address] Performed By: #### I NFTBP ####[facility] LABIA [id number] [place] [address] [place] C diff Tox gens Stl Ql BRYN+p robeon 04-20-2024 C. difficile toxin genes BRYN+probe Ql (Stl) Negative Normal Negative for C. difficile toxin by PCR [facility] Comment on above: Order Comment: Speci men Type: STOOL SPECIMENOrdering Facility: [facility] Address: [address] [place] [address] Performed By: #### 5 4067-4, 94247-3, PANCEF ####[facility] LABIA [id number] [place] [address] [place] C. difficile toxin genes BRYN +probe Ql (Stl)on 04-20-2024 Interpretation and review of laboratory results Normal [facility] CBC W Auto Differential pane l (Bld)on 04-20-2024 Basophils (Bld) [#/Vol] 0.04 10*3/uL [facility] Basophils/100 WBC (Bld) 0.5 % [facility] Differential cell count method Nom (Bld) Auto [facility] Eosinophils (Bld) [#/Vol] [facility] MARYVALEF [facility] Eosinophils/100 WBC (Bld) 0.0 % [facility] Erythrocyte distribution width (RBC) [Ratio] 14.7 % 11.5 - 15.0 % [facility] Hematocrit (Bld) [Volume fraction] 38.0 % Low 39.0 - 51.0 % [facility] Hemoglobin (Bld) [Mass/Vol] 12.0 g/dL Low 13.0 - 17.0 g/dL [facility] Immature granulocytes (Bld) [#/Vol] 0.03 10*3/uL [facility] MARYVALEF [facility] Immature granulocytes/100 WBC (Bld) 0.4 % [facility] Interpretation and review of laboratory results Abnormal [facility] Lymphocytes (Bld) [#/Vol] 0.95 10*3/uL Low [facility] Lymphocytes/100 WBC (Bld) 11.9 % [facility] MCH (RBC) [Entitic mass] 30.5 pg 26.0 - 34.0 pg [facility] MCHC (RBC) [Mass/Vol] 31.6 g/dL 30.5 - 36.0 g/dL [facility] MCV (RBC) [Entitic vol] 96.7 fL 80.0 - 100.0 fL [facility] Monocytes (Bld) [#/Vol] 1.03 10*3/uL [facility] Monocytes/100 WBC (Bld) 12.9 % [facility] Neutrophils (Bld) [#/Vol] 5.91 10*3/uL [facility] Neutrophils/100 WBC (Bld) 74.3 % [facility] Nucleated RBC (Bld) [#/Vol] [facility] MARYVALEF [facility] Nucleated RBC/100 WBC (Bld) [Ratio] 0.0 % /100 WBC [facility] Platelet mean volume (Bld) [Entitic vol] 11.1 fL 9.0 - 12.7 fL [facility] Platelets (Bld) [#/Vol] 267 10*3/uL [facility] RBC (Bld) [#/Vol] 3.93 10*6/uL Low 4.20 - 6.0 0 m/uL [facility] WBC (Bld) [#/Vol] 7.96 10*3/uL [facility] Basophils (Bld) [#/Vol] 0.04 10*3/uL Normal <0.11 [facility] Comment on above: Order Comment: Speci men Type: BLOOD SPECIMENOrdering Facility: [facility] Address: [address] [place] [address] Performed By: #### 5 7021-8 ####[facility] LABCLIA [id number] [place] [address] [place] Basophils/100 WBC (Bld) 0.5 % Normal [facility] Comment on above: Order Comment: Speci men Type: BLOOD SPECIMENOrdering Facility: [facility] Address: [address] [place] [address] Performed By: #### 5 7021-8 ####[facility]CLIA [id number] [place] [address] [place] Differential cell count method Nom (Bld) Auto Normal [facility] Comment on above: Order Comment: Speci men Type: BLOOD SPECIMENOrdering Facility: [facility] Address: [address] [place] [address] Performed By: #### 5 7021-8 ####[facility]CLIA [id number] [place] [address] [place] Eosinophils (Bld) [#/Vol] 10*3/uL Normal <0.46 [facility] Comment on above: Order Comment: Speci men Type: BLOOD SPECIMENOrdering Facility: [facility] Address: [address] [place] [address] Performed By: #### 5 7021-8 ####[facility]CLIA [id number] [place] [address] [place] Eosinophils/100 WBC (Bld) 0.0 % Normal [facility] Comment on above: Order Comment: Speci men Type: BLOOD SPECIMENOrdering Facility: [facility] Address: [address] [place] [address] Performed By: #### 5 7021-8 ####[facility] LABCLIA [id number] [place] [address] [place] Erythrocyte distribution width (RBC) [Ratio] 14.7 % Normal 11.5-15.0 [facility] Comment on above: Order Comment: Speci men Type: BLOOD SPECIMENOrdering Facility: [facility] Address: [address] [place] [address] Performed By: #### 5 7021-8 ####[facility] LABCLIA [id number] [place] [address] [place] Hematocrit (Bld) [Volume fraction] 38.0 % Low 39.0-51.0 [facility] Comment on above: Order Comment: Speci men Type: BLOOD SPECIMENOrdering Facility: [facility] Address: [address] [place] [address] Performed By: #### 5 7021-8 ####[facility] LABCLIA [id number] [place] [address] [place] Hemoglobin (Bld) [Mass/Vol] 12.0 g/dL Low 13.0-17.0 [facility] Comment on above: Order Comment: Speci men Type: BLOOD SPECIMENOrdering Facility: [facility] Address: [address] [place] [address] Performed By: #### 5 7021-8 ####[facility] LABCLIA [id number] [place] [address] [place] Immature granulocytes (Bld) [#/Vol] 0.03 10*3/uL Normal <0.10 [facility] Comment on above: Order Comment: Speci men Type: BLOOD SPECIMENOrdering Facility: [facility] Address: [address] [place] [address] Performed By: #### 5 7021-8 ####[facility] LABCLIA [id number] [place] [address] [place] Immature granulocytes/100 WBC (Bld) 0.4 % Normal [facility] Comment on above: Order Comment: Speci men Type: BLOOD SPECIMENOrdering Facility: [facility] Address: [address] [place] [address] Performed By: #### 5 7021-8 ####[facility] LABCLIA [id number] [place] [address] [place] Lymphocytes (Bld) [#/Vol] 0.95 10*3/uL Low 1.00-4.00 [facility] Comment on above: Order Comment: Speci men Type: BLOOD SPECIMENOrdering Facility: [facility] Address: [address] [place] [address] Performed By: #### 5 7021-8 ####[facility] LABIA [id number] [place] [address] [place] Lymphocytes/100 WBC (Bld) 11.9 % Normal [facility] Comment on above: Order Comment: Speci men Type: BLOOD SPECIMENOrdering Facility: [facility] Address: [address] [place] [address] Performed By: #### 5 7021-8 ####[facility] [id number] [place] [address] [place] MCH (RBC) [Entitic mass] 30.5 pg Normal 26.0-34.0 [facility] Comment on above: Order Comment: Speci men Type: BLOOD SPECIMENOrdering Facility: [facility] Address: [address] [place] [address] Performed By: #### 5 7021-8 ####[facility] LABIA [id number] [place] [address] [place] MCHC (RBC) [Mass/Vol] 31.6 g/dL Normal 30.5-36.0 [facility] Comment on above: Order Comment: Speci men Type: BLOOD SPECIMENOrdering Facility: [facility] Address: [address] [place] [address] Performed By: #### 5 7021-8 ####[facility] LABIA [id number] [place] [address] [place] MCV (RBC) [Entitic vol] 96.7 fL Normal 80.0-100.0 [facility] Comment on above: Order Comment: Speci men Type: BLOOD SPECIMENOrdering Facility: [facility] Address: [address] [place] [address] Performed By: #### 5 7021-8 ####[facility] LABCLIA [id number] [place] [address] [place] Monocytes (Bld) [#/Vol] 1.03 10*3/uL High <0.87 [facility] Comment on above: Order Comment: Speci men Type: BLOOD SPECIMENOrdering Facility: [facility] Address: [address] [place] [address] Performed By: #### 5 7021-8 ####[facility] LABCLIA [id number] [place] [address] [place] Monocytes/100 WBC (Bld) 12.9 % Normal [facility] Comment on above: Order Comment: Speci men Type: BLOOD SPECIMENOrdering Facility: [facility] Address: [address] [place] [address] Performed By: #### 5 7021-8 ####[facility] LABCLIA [id number] [place] [address] [place] Neutrophils (Bld) [#/Vol] 5.91 10*3/uL Normal 1.45-7.50 [facility] Comment on above: Order Comment: Speci men Type: BLOOD SPECIMENOrdering Facility: [facility] Address: [address] [place] [address] Performed By: #### 5 7021-8 ####[facility] LABCLIA [id number] [place] [address] [place] Neutrophils/100 WBC (Bld) 74.3 % Normal [facility] Comment on above: Order Comment: Speci men Type: BLOOD SPECIMENOrdering Facility: [facility] Address: [address] [place] [address] Performed By: #### 5 7021-8 ####[facility] LABCLIA [id number] [place] [address] [place] Nucleated RBC (Bld) [#/Vol] 10*3/uL Normal <0.01 [facility] Comment on above: Order Comment: Speci men Type: BLOOD SPECIMENOrdering Facility: [facility] Address: [address] [place] [address] Performed By: #### 5 7021-8 ####[facility] LABIA [id number] [place] [address] [place] Nucleated RBC/100 WBC (Bld) [Ratio] 0.0 /100 WBC Normal [facility] Comment on above: Order Comment: Speci men Type: BLOOD SPECIMENOrdering Facility: [facility] Address: [address] [place] [address] Performed By: #### 5 7021-8 ####[facility] LABIA [id number] [place] [address] [place] Platelet mean volume (Bld) [Entitic vol] 11.1 fL Normal 9.0-12.7 [facility] Comment on above: Order Comment: Speci men Type: BLOOD SPECIMENOrdering Facility: [facility] Address: [address] [place] [address] Performed By: #### 5 7021-8 ####[facility] LABIA [id number] [place] [address] [place] Platelets (Bld) [#/Vol] 267 10*3/uL Normal 150-400 [facility] Comment on above: Order Comment: Speci men Type: BLOOD SPECIMENOrdering Facility: [facility] Address: [address] [place] [address] Performed By: #### 5 7021-8 ####[facility] LABIA [id number] [place] [address] [place] RBC (Bld) [#/Vol] 3.93 10*6/uL Low 4.20-6.00 [facility] Comment on above: Order Comment: Speci men Type: BLOOD SPECIMENOrdering Facility: [facility] Address: [address] [place] [address] Performed By: #### 5 7021-8 ####[facility] LABCLIA [id number] [place] [address] [place] WBC (Bld) [#/Vol] 7.96 10*3/uL Normal 3.70-11.00 [facility] Comment on above: Order Comment: Speci beth Type: BLOOD SPECIMENOrdering Facility: [facility] Address: [address] [place] [address] Performed By: #### 5 7021-8 ####[facility] LABCLIA [id number] [address] [place] CELIAC SCREENon 04-20-2024 GLIAD DEAMIDATED IGA QUAL Negative Normal Negative, Test not Indicated [facility] Comment on above: Order Comment: Alexandru campos Type: BLOOD SPECIMENOrdering Facility: [facility] Address: [address] [place] [address] Result Comment: This is used as an aid in diagnosis of celiac disease. Clinical correlation is required.The following results were obtained with an Omicia QUANTA Lite Gliadin IgA SALBADOR Gliadin. Gliadin IgA values obtained with different manufacturers' assay methods may not be used interchangeably. The magnitude of the reported IgA levels cannot be correlated to an endpoint titer. Performed By: #### L [id number] ####[facility] LABIA [id number] [place] [address] [place] Gliadin peptide IgA Qn (S) 4 Units Normal <20 [facility] Comment on above: Order Comment: Speci men Type: BLOOD SPECIMENOrdering Facility: [facility] Address: [address] [place] [address] Performed By: #### L [id number] ####[facility] LABCLIA [id number] [place] [address] [place] INTERPRETATION No serological evide nce of celiac disease, however, if celiac disease is clinically suspected and patient is not on gluten-free diet, histological diagnosis may be considered. HLA testing may help with risk assessment. Normal [facility] Comment on above: Order Comment: Speci men Type: BLOOD SPECIMENOrdering Facility: [facility] Address: [address] [place] [address] Performed By: #### L [id number] ####[facility] LABCLIA [id number] [place] [address] [place] TRANSGLUTAMINASE IGA ABS INTERPRETATION Negative Normal Negative [facility] Comment on above: Order Comment: Speci men Type: BLOOD SPECIMENOrdering Facility: [facility] Address: [address] [place] [address] Result Comment: The following results were obtained with MoveratiA inDineroe R h-tTG IgA SALBADOR.???R h-tTG IgA values obtained with different manufacturers' assay methods may not be used interchangeably. The magnitude of the reported IgA levels cannot be corelated to an endpoint???concentration.This is used as an aid in diagnosis of celiac disease. Clinical correlation is required. Performed By: #### L [id number] ####[facility] LABCLIA [id number] [place] [address] [place] tTG IgA Qn (S) <2 Normal <4 [facility] Comment on above: Order Comment: Speci men Type: BLOOD SPECIMENOrdering Facility: [facility] Address: [address] [place] [address] Performed By: #### L [id number] ####[facility] LABCLIA [id number] [place] [address] [place] CRP SerPl-mCncon 04-20-2024 CRP [Mass/Vol] 8.4 mg/dL High <0.9 [facility] Comment on above: Order Comment: Speci men Type: BLOOD SPECIMENOrdering Facility: [facility] Address: [address] [place] [address] Performed By: #### 1 988-5, 15705-8, 3034-6, 09803-3 ####[facility] LABCLIA [id number] [place] [id number] [place] Calprotectin (Stl) [Mass/Mas s]on 04-20-2024 CALPROTECTIN, FECAL QUANTITATIVE 99.0 ug/g High <50 [facility] Comment on above: Order Comment: Speci men Type: STOOL SPECIMENOrdering Facility: [facility] Address: [address] [place] [address] Performed By: #### 5 4067-4, 11987-7, PANCEF ####[facility] LABCLIA [id number] [place] [address] [place] Cobalamin (Vitamin B12) [Mas s/Vol]on 04-20-2024 Interpretation and review of laboratory results Abnormal [facility] Comprehensive metabolic 2000 panelon 04-20-2024 Albumin [Mass/Vol] 3.8 g/dL Low 3.9 - 4.9 g/dL [facility] ALP [Catalytic activity/Vol] 141 U/L High 38 - 113 U/L [facility] ALT [Catalytic activity/Vol] 14 U/L 10 - 54 U/L [facility] Anion gap [Moles/Vol] 15 mmol/L 8 - 15 mmol/L [facility] AST [Catalytic activity/Vol] 27 U/L 14 - 40 U/L [facility] Bilirubin [Mass/Vol] 0.9 mg/dL 0.2 - 1 .3 mg/dL [facility] Calcium [Mass/Vol] 9.1 mg/dL 8.5 - 10. 2 mg/dL [facility] Chloride [Moles/Vol] 101 mmol/L 98 - 10 7 mmol/L [facility] CO2 [Moles/Vol] 24 mmol/L 22 - 30 mmol/L [facility] Creatinine [Mass/Vol] 1.23 mg/dL High 0.73 - 1.22 mg/dL [facility] GFR/1.73 sq M.predicted among non-blacks MDRD (S/P/Bld) [Vol rate/Area] 62 mL/min/{1.73_m2} - PINF [facility] Comment on above: Estimated Glomerular Filtration Rate [...] 105 mg/dL High 74 - 99 mg/dL [facility] Comment on above: The [place] Diabete s Association (ADA) provides guidance for [...] Standards of Medical Care in Diabetes 2016, [place] [employer]. Diabetes Care. 2016.39(Suppl 1). Potassium [Moles/Vol] 3.9 mmol/L 3.7 - 5.1 mmol/L [facility] Protein [Mass/Vol] 7.2 g/dL 6.3 - 8.0 g/dL [facility] Sodium [Moles/Vol] 140 mmol/L 136 - 144 mmol/L [facility] Urea nitrogen [Mass/Vol] 15 mg/dL 9 - 24 mg/dL [facility] Albumin [Mass/Vol] 3.8 g/dL Low 3.9-4.9 [facility] Comment on above: Order Comment: Alexandru campos Type: BLOOD SPECIMENOrdering Facility: [facility] Address: [address] [place] [address] Performed By: #### 1 988-5, 67654-3, 3034-6, 12791-0 ####[facility] LABCLIA [id number] [place] [address] [place] ALP [Catalytic activity/Vol] 141 U/L High 38-113 [facility] Comment on above: Order Comment: Alexandru campos Type: BLOOD SPECIMENOrdering Facility: [facility] Address: [address] [place] [id number] Performed By: #### 1 988-5, 61222-9, 3034-6, 29724-1 ####[facility] LABCLIA [id number] [place] [address] [place] ALT [Catalytic activity/Vol] 14 U/L Normal 10-54 [facility] Comment on above: Order Comment: Speci men Type: BLOOD SPECIMENOrdering Facility: [facility] Address: [address] [place] [address] Performed By: #### 1 988-5, 72021-8, 3034-6, 18556-6 ####[facility] LABCLIA [id number] [place] [address] [place] Anion gap [Moles/Vol] 15 mmol/L Normal 8-15 [facility] Comment on above: Order Comment: Speci men Type: BLOOD SPECIMENOrdering Facility: [facility] Address: [address] [place] [address] Performed By: #### 1 988-5, 23208-9, 3034-6, 40579-3 ####[facility] LABIA [id number] [place] [address] [place] AST [Catalytic activity/Vol] 27 U/L Normal 14-40 [facility] Comment on above: Order Comment: Speci men Type: BLOOD SPECIMENOrdering Facility: [facility] Address: [address] [place] [address] Performed By: #### 1 988-5, 56335-1, 3034-6, 24524-4 ####[facility] LABIA [id number] [place] [address] [place] Bilirubin [Mass/Vol] 0.9 mg/dL Normal 0.2-1.3 [facility] Comment on above: Order Comment: Speci men Type: BLOOD SPECIMENOrdering Facility: [facility] Address: [address] [place] [address] Performed By: #### 1 988-5, 14734-5, 3034-6, 91220-6 ####[facility] LABCLIA [id number] [place] [id number] [place] Calcium [Mass/Vol] 9.1 mg/dL Normal 8.5-10.2 [facility] Comment on above: Order Comment: Speci men Type: BLOOD SPECIMENOrdering Facility: [facility] Address: [address] [place] [address] Performed By: #### 1 988-5, 50006-6, 3034-6, 66371-6 ####[facility] LABIA [id number] [place] [address] [place] Chloride [Moles/Vol] 101 mmol/L Normal 98-107 [facility] Comment on above: Order Comment: Speci men Type: BLOOD SPECIMENOrdering Facility: [facility] Address: [address] [place] [address] Performed By: #### 1 988-5, 59357-7, 3034-6, 70083-3 ####[facility] LABIA [id number] [place] [address] [place] CO2 [Moles/Vol] 24 mmol/L Normal 22-30 [facility] Comment on above: Order Comment: Speci men Type: BLOOD SPECIMENOrdering Facility: [facility] Address: [address] [place] [address] Performed By: #### 1 988-5, 60405-6, 3034-6, 01134-3 ####[facility] LABIA [id number] [place] [address] [place] Creatinine [Mass/Vol] 1.23 mg/dL High 0.73-1.22 [facility] Comment on above: Order Comment: Speci men Type: BLOOD SPECIMENOrdering Facility: [facility] Address: [address] [place] [address] Performed By: #### 1 988-5, 75164-8, 3034-6, 70290-6 ####[facility] LABIA [id number] [place] [id number] [place] Creatinine and Glomerular filtration rate.predicted panel (S/P/Bld) 62 mL/min/1.73m??? Normal >=60 [facility] Comment on above: Order Comment: Alexandru campos Type: BLOOD SPECIMENOrdering Facility: [facility] Address: [address] [place] [address] Result Comment: Kristel mated Glomerular Filtration Rate [...] actual GFR. Performed By: #### 1 988-5, 80907-7, 3034-6, 77231-4 ####[facility] LABIA [id number] [place] [id number] [place] Glucose [Mass/Vol] 105 mg/dL High 74-99 [facility] Comment on above: Order Comment: Alexandru campos Type: BLOOD SPECIMENOrdering Facility: [facility] Address: [address] [place] [address] Result Comment: The [place] Diabetes Association (ADA) provides guidance for cutoff [...] Standards of Medical Care in Diabetes 2016, [place] Diabetes Association. Diabetes Care. 2016.39(Suppl 1). Performed By: #### 1 988-5, 93045-4, 3034-6, 55223-1 ####[facility] LABCLIA [id number] [place] [id number] [place] Potassium [Moles/Vol] 3.9 mmol/L Normal 3.7-5.1 [facility] Comment on above: Order Comment: Speci men Type: BLOOD SPECIMENOrdering Facility: [facility] Address: [address] [place] [address] Performed By: #### 1 988-5, 15568-4, 3034-6, 68378-6 ####[facility] LABIA [id number] [place] [address] [place] Protein [Mass/Vol] 7.2 g/dL Normal 6.3-8.0 [facility] Comment on above: Order Comment: Speci men Type: BLOOD SPECIMENOrdering Facility: [facility] Address: [address] [place] [address] Performed By: #### 1 988-5, 23046-4, 3034-6, 41674-1 ####[facility] LABIA [id number] [place] [address] [place] Sodium [Moles/Vol] 140 mmol/L Normal 136-144 [facility] Comment on above: Order Comment: Speci men Type: BLOOD SPECIMENOrdering Facility: [facility] Address: [address] [place] [address] Performed By: #### 1 988-5, 89262-0, 3034-6, 43776-4 ####[facility] LABIA [id number] [place] [id number] [place] Urea nitrogen [Mass/Vol] 15 mg/dL Normal 9-24 [facility] Comment on above: Order Comment: Speci men Type: BLOOD SPECIMENOrdering Facility: [facility] Address: [address] [place] [address] Performed By: #### 1 988-5, 20991-9, 3034-6, 02206-2 ####[facility] LABIA [id number] [place] [address] [place] G lamblia+Cryptosp Ag Stl Ql IAon 04-20-2024 G. lamblia+Cryptosporidiu m sp Ag IA Ql (Stl) CRYPTOSPORIDIUM ANTIGEN BY EIA: Negative for Cryptosporidium by EIA. GIARDIA ANTIGEN BY EIA: Negative for Giardia lamblia by EIA. Normal [facility] Comment on above: Performed By: #### 7 9390-1, 53404-6 ####[facility] [id number] [place] [address] [place] Gastrointestinal pathogens i dentified BRYN+probe Nom (Stl)on 04-20-2024 Campylobacter sp DNA BRYN+probe Nom (Unsp spec) Not detected Normal Not Detected [facility] Comment on above: Order Comment: Speci men Type: STOOL SPECIMENOrdering Facility: [facility] Address: [address] [place] [address] Performed By: #### 7 9390-1, 60733-8 ####[facility] [id number] [place] [address] [place] Salmonella sp DNA BRYN+probe Ql (Unsp spec) Not detected Normal Not Detected [facility] Comment on above: Order Comment: Speci men Type: STOOL SPECIMENOrdering Facility: [facility] Address: [address] [place] [address] Performed By: #### 7 9390-1, 12079-7 ####[facility] LABIA [id number] [place] [address] [place] Shiga toxin stx gene BRYN+probe Nom (Unsp spec) Not detected Normal Not Detected [facility] Comment on above: Order Comment: Speci men Type: STOOL SPECIMENOrdering Facility: [facility] Address: [address] [place] [address] Performed By: #### 7 9390-1, 38391-5 ####[facility] [id number] [place] [address] [place] Shigella sp DNA BRYN+probe Ql (Unsp spec) Not detected Normal Not Detected [facility] Comment on above: Order Comment: Speci men Type: STOOL SPECIMENOrdering Facility: [facility] Address: [address] [place] [address] Performed By: #### 7 9390-1, 61451-3 ####[facility] [id number] [place] [address] [place] HBV surface Ag Ql (S)on Interpretation and review of laboratory results Normal [facility] HBV surface Ag Ser Qlon HBV surface Ag Ql (S) Negative Normal Negative [facility] Comment on above: Order Comment: Speci men Type: BLOOD SPECIMENOrdering Facility: [facility] Address: [address] [place] [address] Performed By: #### 5 195-3 ####[facility] [id number] [place] [address] [place] IgA SerPl-mCncon 04-20-2024 IgA [Mass/Vol] 282 mg/dL Normal 70-400 [facility] Comment on above: Order Comment: Speci men Type: BLOOD SPECIMENOrdering Facility: [facility] Address: [address] [place] [address] Performed By: #### 2 458-8 ####[facility] [id number] [place] [address] [place] Iron and Iron binding capaci ty panelon 04-20-2024 Iron [Mass/Vol] 26 ug/dL Low 41 - 186 ug/dL [facility] Iron binding capacity [Mass/Vol] 256 ug/dL 232 - 386 ug/dL [facility] Iron/TIBC [Molar ratio] 10.2 % Low 15.0 - 57.0 % [facility] Iron [Mass/Vol] 26 ug/dL Low 41-186 [facility] Comment on above: Order Comment: Speci men Type: BLOOD SPECIMENOrdering Facility: [facility] Address: [address] [place], [place] [id number] Performed By: #### 1 988-5, 78543-4, 3034-6, 14088-3 ####[facility] LABCLIA [id number] [place] [id number] [place] Iron binding capacity [Mass/Vol] 256 ug/dL Normal 232-386 [facility] Comment on above: Order Comment: Speci men Type: BLOOD SPECIMENOrdering Facility: [facility] Address: [address] [place] [address] Performed By: #### 1 988-5, 79372-7, 3034-6, 92665-7 ####[facility] LABCLIA [id number] [place] [id number] [place] Iron/TIBC [Molar ratio] 10.2 % Low 15.0-57.0 [facility] Comment on above: Order Comment: Speci men Type: BLOOD SPECIMENOrdering Facility: [facility] Address: [address] [place] [address] Performed By: #### 1 988-5, 37985-9, 3034-6, 78659-8 ####[facility] LABCLIA [id number] [place] [id number] [place] Laboratory - Chemistry and C hemistry - challengeon 04-20-2024 CRP [Mass/Vol] 8.4 mg/dL High NINF - 0.9 mg/dL [facility] Transferrin [Mass/Vol] 209 mg/dL 200 - 360 mg/dL [facility] 25-hydroxyvitamin D3 [Mass/Vol] 36.6 ng/mL 31.0 - 80.0 ng/mL [facility] Comment on above: Classification of 25 [place] Vitamin D status: Deficiency/Insufficiency: < or = 30 ng/ml. Sufficiency/Optimal Levels: 31-80 ng/mL Toxicity: > 100 ng/mL. Test performed by chemiluminescent immunoassay. Cobalamin (Vitamin B12) [Mass/Vol] 1458 pg/mL High 232 - 1245 pg/mL [facility] Laboratory - Microbiology an d Antimicrobial susceptibilityon 04-20-2024 C. difficile toxin genes BRYN+probe Ql (Stl) Negative Negative for C. difficile toxin by PCR [facility] HBV surface Ag Ql (S) Negative Negative [facility] No Panel Informationon 04-20 Interpretation and review of laboratory results Abnormal [facility] PANC ELASTASE, FECALon 04-20 ELASTASE INTERPRETATION Normal Normal Normal [facility] Comment on above: Order Comment: Speci men Type: STOOL SPECIMENOrdering Facility: [facility] Address: [address] [place] [address] Performed By: #### 5 4067-4, 83111-3, PANCEF ####[facility] LABIA [id number] [place] [address] [place] ELASTASE-1 CONCENTRATION 553 ug/g Normal >=200 [facility] Comment on above: Order Comment: Speci beth Type: STOOL SPECIMENOrdering Facility: [facility] Address: [address] [place] [address] Result Comment: Inte rpretation:<100 ug/g: Severe Exocrine Pancreatic Hlyrkjtaohyxd581-642 ug/g: Mild to Moderate Exocrine Pancreatic Insufficiency>=200 ug/g: Normal Performed By: #### 5 4067-4, 04593-2, PANCEF ####[facility] LABIA [id number] [place] [address] [place] Transferrin SerPl-mCncon Transferrin [Mass/Vol] 209 mg/dL Normal 200-360 [facility] Comment on above: Order Comment: Speci men Type: BLOOD SPECIMENOrdering Facility: [facility] Address: [address] [place] [address] Performed By: #### 1 988-5, 45154-7, 3034-6, 92870-4 ####[facility] LABCLIA [id number] [place] [id number] [place] Transferrin [Mass/Vol]on Interpretation and review of laboratory results Normal [facility] Vit B12 SerPl-mCncon 024 Cobalamin (Vitamin B12) [Mass/Vol] 1458 pg/mL High 232-1245 [facility] Comment on above: Order Comment: Speci men Type: BLOOD SPECIMENOrdering Facility: [facility] Address: [address] [place] [address] Performed By: #### 2 132-9 ####[facility] LABCLIA [id number] [place] [address] [place] GREY BY IFA SCREENOrdered By: Nathaly Black on 03-31-2024 Interpretation and review of laboratory results Normal [facility] Nuclear Ab Ql (S) Negative Negative [facility] Comment on above: Anti-nuclear antibod y test is used as an aid in diagnosis of systemic autoimmune diseases. Where positive and clinically warranted, follow-up using disease-specific testing is recommended. Low positive titers are not uncommon with advanced age, certain chronic infections, and malignancies among others. Test methodology: Indirect fluorescence immunoassay (IFA) using HEp-2 cells. [facility] ANTI NEUTRO CYTO ABon 2023 Interpretation (ANCA) Equivocal staining seen on the ethanol (indirect immunofluorescence screen) slide but negative results on follow up confirmatory testing. Anti-nuclear antibody test may be considered. Clinical correlation is required. [facility] Myeloperoxidase Ab Qn (S) NINF [facility] Neutrophil cytoplasmic Ab.classic IF Ql (S) Negative Negative [facility] Neutrophil cytoplasmic Ab.perinuclear IF Ql (S) Negative Negative [facility] Proteinase 3 Ab Qn (S) NINF [facility] Staff Review (ANCA) Reviewed by Sundar Hilario MD, PhD [facility] This test is used as an aid in diagnosis of patients with autoimmune vasculitides. The final interpretation should be done in conjunction with ANCA test results and clinical correlation. [facility] BLOOD TB SCREENon 03-31-2024 M. tuberculosis tuberculin stim IFN-g Ql (Bld) Negative [facility] Mitogen minus Nil 1.71 - PINF [facility] TB Gamma Interpretation Infection with M. tuberculosis complex is unlikely. If latent tuberculosis infection is highly suspected, a negative result does not rule out the infection. Specimens from immunocompromised patients and those <5 years of age may show false negative results. In case of a contact investigation, please repeat 8-12 weeks after a known exposure. [facility] TB Nil 0.00 [facility] TB1 Ag minus Nil [facility] TB2 Ag minus Nil 0.00 [facility] CRITHIDIA LUCILIAEOrdered By : Sherie Vásquez on 03-31-2024 DNA double strand Ab IF Crithidia luciliae Ql (S) Negative Negative [facility] Comment on above: Crithidia luciliae a ssay is used as an aid in diagnosis of systemic lupus erythematosus (SLE). A negative result cannot rule out SLE. Low positive titers may be seen with other systemic autoimmune diseases. Clinical correlation is required. DNA double strand Ab IF Crit hidia luciliae Ql (S)Ordered By: Sherie Vásquez on 03-31-2024 Interpretation and review of laboratory results Normal [facility] C-REACTIVE PROTEINon 024 CRP [Mass/Vol] 2.1 mg/dL High NINF - 0.9 mg/dL [facility] C3 COMPLEMENTon 03-30-2024 Complement C3 [Mass/Vol] 168 mg/dL High 86 - 166 mg/dL [facility] C4 COMPLEMENTon 03-30-2024 Complement C4 [Mass/Vol] 42 mg/dL 13 - 46 mg/dL [facility] CBC W Auto Differential pane l (Bld)on 03-30-2024 Basophils (Bld) [#/Vol] 0.04 10*3/uL [facility] Basophils/100 WBC (Bld) 0.6 % [facility] Differential cell count method Nom (Bld) Auto [facility] Eosinophils (Bld) [#/Vol] [facility] Eosinophils/100 WBC (Bld) 0.0 % [facility] Erythrocyte distribution width (RBC) [Ratio] 15.6 % High 11.5 - 15.0 % [facility] Hematocrit (Bld) [Volume fraction] 38.4 % Low 39.0 - 51.0 % [facility] Hemoglobin (Bld) [Mass/Vol] 11.9 g/dL Low 13.0 - 17.0 g/dL [facility] Immature granulocytes (Bld) [#/Vol] NINF [facility] Immature granulocytes/100 WBC (Bld) 0.3 % [facility] Interpretation and review of laboratory results Abnormal [facility] Lymphocytes (Bld) [#/Vol] 1.21 10*3/uL [facility] Lymphocytes/100 WBC (Bld) 17.7 % [facility] MCH (RBC) [Entitic mass] 29.7 pg 26.0 - 34.0 pg [facility] MCHC (RBC) [Mass/Vol] 31.0 g/dL 30.5 - 36.0 g/dL [facility] MCV (RBC) [Entitic vol] 95.8 fL 80.0 - 100.0 fL [facility] Monocytes (Bld) [#/Vol] 0.80 10*3/uL NINF [facility] Monocytes/100 WBC (Bld) 11.7 % [facility] Neutrophils (Bld) [#/Vol] 4.77 10*3/uL [facility] Neutrophils/100 WBC (Bld) 69.7 % [facility] Nucleated RBC (Bld) [#/Vol] NINF [facility] Nucleated RBC/100 WBC (Bld) [Ratio] 0.0 % /100 WBC [facility] Platelet mean volume (Bld) [Entitic vol] 10.7 fL 9.0 - 12.7 fL [facility] Platelets (Bld) [#/Vol] 243 10*3/uL [facility] RBC (Bld) [#/Vol] 4.01 10*6/uL Low 4.20 - 6.0 0 m/uL [facility] WBC (Bld) [#/Vol] 6.84 10*3/uL [facility] CK [Catalytic activity/Vol]o n 03-30-2024 Interpretation and review of laboratory results Normal [facility] CREATINE KINASE/CKon 024 CK [Catalytic activity/Vol] 56 U/L 51 - 298 U/L [facility] Complement C4 [Mass/Vol]on 1 Interpretation and review of laboratory results Normal [facility] Comprehensive metabolic 2000 panelon 03-30-2024 Albumin [Mass/Vol] 4.1 g/dL 3.9 - 4.9 g/dL [facility] ALP [Catalytic activity/Vol] 121 U/L High 38 - 113 U/L [facility] ALT [Catalytic activity/Vol] 13 U/L 10 - 54 U/L [facility] Anion gap [Moles/Vol] 10 mmol/L 8 - 15 mmol/L [facility] AST [Catalytic activity/Vol] 22 U/L 14 - 40 U/L [facility] Bilirubin [Mass/Vol] 0.7 mg/dL 0.2 - 1 .3 mg/dL [facility] Calcium [Mass/Vol] 9.0 mg/dL 8.5 - 10. 2 mg/dL [facility] Chloride [Moles/Vol] 105 mmol/L 98 - 10 7 mmol/L [facility] CO2 [Moles/Vol] 27 mmol/L 22 - 30 mmol/L [facility] Creatinine [Mass/Vol] 1.26 mg/dL High 0.73 - 1.22 mg/dL [facility] GFR/1.73 sq M.predicted among non-blacks MDRD (S/P/Bld) [Vol rate/Area] 60 mL/min/{1.73_m2} - PINF [facility] Comment on above: Estimated Glomerular Filtration Rate [...] [Mass/Vol] 95 mg/dL 74 - 99 mg/dL [facility] Comment on above: The [place] Diabete s Association (ADA) provides guidance for [...] Standards of Medical Care in Diabetes 2016, [place] Diabetes Association. Diabetes Care. 2016.39(Suppl 1). Potassium [Moles/Vol] 4.1 mmol/L 3.7 - 5.1 mmol/L [facility] Protein [Mass/Vol] 7.0 g/dL 6.3 - 8.0 g/dL [facility] Sodium [Moles/Vol] 142 mmol/L 136 - 144 mmol/L [facility] Urea nitrogen [Mass/Vol] 17 mg/dL 9 - 24 mg/dL [facility] No Panel Informationon 03-30 Interpretation and review of laboratory results Abnormal [facility] PROTEIN / CREATININE RATIOon 03-30-2024 Protein/Creatinine (U) [Mass ratio] 0.17 mg/mg High NINF - 0.15 mg/mg [facility] Comment on above: Adult Proteinuria Ca tegories: <0.15 mg/mg is considered normal to mildly increased 0.15 - 0.50 mg/mg is considered moderately increased >0.50 mg/mg is considered severely increased KDIGO. (2013). KDIGO 2012 Clinical Practice Guideline for the Evaluation and Management of Chronic Kidney Disease. Official Journal of the International Society of Nephrology, 3(1), 1-150. Protein/Creatinine (U) [Mass ratio]on 03-30-2024 Creatinine (U) [Mass/Vol] 34.5 mg/dL 20.0 - 300.0 mg/dL [facility] Interpretation and review of laboratory results Abnormal [facility] Protein (U) [Mass/Vol] 6 mg/dL 0 - 2 0 mg/dL [facility] Urinalysis complete panel (U )on 03-30-2024 Bacteria LM.HPF (Urine sed) [#/Area] Negative Negative /HPF [facility] Bilirubin Ql (U) Negative Negative [facility] Clarity (Unsp spec) Clear Clear [facility] Color (U) Yellow Yellow [facility] Epithelial cells LM.HPF (Urine sed) [#/Area] None Seen /HPF [facility] Glucose Test strip (U) [Mass/Vol] Negative Negative [facility] Hemoglobin Ql (U) Negative Negative [facility] Hyaline casts (Urine sed) [#/Area] 4-10 /LPF Abnormal 0 /LPF [facility] Interpretation and review of laboratory results Abnormal [facility] Ketones Ql (U) Negative Negative [facility] Leukocyte esterase Test strip Ql (U) Negative Negative [facility] Nitrite Ql (U) Negative Negative [facility] pH (U) 6.5 [pH] NINF - 8.5 [facility] Protein (U) [Mass/Vol] Negative Negative Cl [facility] RBC LM.HPF (Urine sed) [#/Area] 0-2 /HPF 0-2 /HPF [facility] Specific gravity (U) [Rel density] 1.010 1.005 - 1.030 [facility] Urobilinogen Ql (U) 0.2 EU/dL 0.2-1.0 EU/dL [facility] WBC LM.HPF (Urine sed) [#/Area] 0-5 /HPF 0-5 /HPF [facility] This test was develo ped and its performance characteristics determined by [facility]'s Amna Jonnathan [facility] Pathology and Laboratory Medicine [place] (RT-PLMI). It has not been cleared or approved by the FDA. RT-PLMI is regulated under CLIA as qualified to perform high-complexity testing. This test is used for clinical purposes. It should not be regarded as investigational or for research. [facility] ECHOon 03-26-2024 CONCLUSIONS: - Exam indication: Pericardial Disease - The left ventricle is normal in size. Left ventricular systolic function is normal. EF = 55 5% (visual est.) - The right ventricle is normal in size. Right ventricular systolic function is normal. - The patient has not had a prior CC echocardiographic exam for comparison. * * * Final * * * [facility] Echocardiography Report: Transthoracic Echo [facility] Date of service: 03/26/2024 2:34:18 PM Ordering physician: LOUISE CESAR Indication: Pericardial Disease Technologist: Marlyn Thomas [facility] and staff Interpreting physician: Romario Lea [...] septum. PERICARDIUM There is no pericardial effusion. [facility] Echocardiography Echocardiography Rep ort: Transthoracic Echo [facility] Date of service: 03/26/2024 2:34:18 PM Ordering physician: LOUISE CESAR Indication: Pericardial Disease Technologist: aMrlyn Thomas [facility] and staff Interpreting physician: Romario Lea [...] * * Final * * * [facility] : [id number] Normal [facility] LVEF ECHOon 03-26-2024 LV Ejection Fraction 55 % [facility] Comment on above: (visual est.) EF > 5 2 An LV Ejection Fraction of > 50% is normal No Panel Informationon 03-26 [facility] CNOVon 03-17-2024 CNOV Office Visit (THORHL ) -- SAV RAYMUNDO ([id number]) 1950 M Date Time Provider Department 03/17/24 1:30 PM RUMA OSHEA During your visit today, we recorded the following information about you: Temperature Pulse Respiration Blood pressure 97.3 degrees 88/minute 16/minute 132/78 Weight Height 94.3 kg 1.778 m Ruma Oshea PA-C 03/17/2024 2:26 PM Signed [facility] - OUTPATIENT THORACIC SURGERY CLINIC NOTE PT NAME: Sav Cantu Kimberly [facility] NO: [id number] THORACIC SURGEON: Ronaldo Flood M.D. DATE OF SERVICE: 03/17/2024 PRINCIPAL DX: Pleural Effusion SURGICAL HX 11/20/2023: R VATS pleural biopsy, right pbx mechanic and doxycycline pleurodesis, right Pleurx catheter insertion, right 20Fr chest tube insertion Surgical Pathology: FINAL DIAGNOSIS A. Right pleura, biopsy: - Chronic pleuritis with mesothelial hyperplasia (see comment). B. Right pleura, biopsy: - Acute organizing and chronic pleuritis (see comment). DE/ 11/22/2023 Diagnosis Comment A. The biopsy contains [...] reactive proliferation. [facility]ella [facility] and agree [...] patient underwent R VATS pleural biopsy, right pbx mechanic and doxycycline pleurodesis, right Pleurx catheter insertion, right 20Fr chest tube insertion. He was hospitalized 12/20/23 for anasarca, possible autoimmune disease, recurrent pleural effusion. Imaging did not reveal any acute findings. Patient was admitted to [facility] and started on lasix drip, improving anasarca and pleural effusion. Pleurx catheter was drained daily with significantly decreasing output [phone]. He was worked up for an autoimmune [...] presents to clinic today for postoperative visit. [facility] RN called in 03/03 reporti (more content not included)... Normal [facility] Office Visit (MOPL) -- SAV RAYMUNDO ([id number]) 1950 M Date Time Provider Department 03/17/24 10:20 AM LOUISE CESAR During your visit today, we recorded the [...] lung. Last seen by Pulmonary Doctor? Dr. Clemente in [facility]. Outside of [facility]. Is Dr. Cesar on Care Team as Wellness Educator? no Meds reviewed - Refills pended?no Since last seen Have you had any resp illnessses, COVID, exacerbations or recent visits to ER?hospital/Urgent-Care? [place] December 19 x 1 week, Vaccines: Immunization History Administered Date(s) Administered COVID-19 original vaccine, age 12+ yr, monovalent ([email or web address].com - PURPLE TOP) 08/15/2020 08/22/2020 09/13/2020 05/10/2021 influenza (aIIV3) vaccine, age 65+ yr, trivalent, PF (FLUAD) 05/09/2020 pneumococcal conjugate (PCV13) vaccine, 13 valent (PREVNAR 13) 11/26/2016 pneumococcal polysaccharide (PPV23) vaccine, 23 valent (PNEUMOVAX 23) 02/03/2018 tetanus diphtheria (Td) vaccine, age 7+ yr, 5 Lf tetanus, PF (TENIVAC) 06/04/2018 08/30/2018 zoster (RZV) vaccine, recombinant (SHINGRIX) 08/30/2018 Modified Medical Research [place] Dyspnea Scale (MMRC) I stop for breath after walking about 100 yards or after a few minutes on level ground 3 Patient Entered Questionnaires 10/23/2023 PROMIS [employer] - (T-Scores - the mean of general population = 50. Five points is a clinically meaningful difference.) Physical T-Score 44.9 Mental T-Score 43.5 Louise Cesar MD 03/18/2024 8:55 AM Signed Mr. Raymundo is a 74 year old male who presents to the [facility] Respiratory [place]. Consultation requested by Dr. Hopper and Dr. Ronaldo Flood. My final recommendations/evaluation will be communicated back to the requesting physician by way of shared medical record or letter via US mail. This note was partially created using [employer] Voice recognition software and is inherently subject to errors including those of syntax and ?sound-alike? substitutions which may escape proofreading. In such instances, original meaning may be extrapolated by contextual derivation. HPI on March 17, 2024: Sav Raymundo is a gentleman in his 70s, presenting to the pulmonary clinic, for chronic cough and recurrent right-sided pleural effusion s/p R-VATS pleural biopsy, right pbx mechanic and doxycycline pleurodesis, right Pleurx catheter insertion, on 12/10/2023. Mr. Kumar presents with an interesting history. He is a semiretired gentleman from the [facility], with virtually no past medical history, very [...] and he was referred to a local director of environmental services. He underwent thoracentesis several times, each time pleural fluid analysis showed exudative fluid. CT scan was obtained locally which did not reveal much except pleural effusion. CT scan also shows pericardial effusion. He was then referred by his local director of environmental services to [facility] for a pleurodesis. In November 2023, he underwent VATS pleurodesis (mechanical and doxycycline), with pleural biopsy, and the Pleurx catheter was also placed. Analysis of the pleural fluid and biopsies of the pleura showed acute and chronic pleuritis with organization, but no malignancy. We do not have pleural fluid chemical or hematological analysis done in [facility], but cytology was negative for malignant cells. He was discharged with Pleurx catheter, and and has been draining pleural fluid about 500 to 800 mL every other day. And his dry cough has also been persistent. In December 2023, he was sent to [facility] after seeing thoracic surgery ADRIENNE for anasarca, and was admitted. His abdomen and subcutaneous tissues especially in his legs were swollen, no ascites found, but significant skin edema including blisters were seen. He improved with Lasix drip, was evaluated by rheumatology, and so far his sero (more content not included)... 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 03/17/2024 8:16 AM RESPIRATORY THERAPY ORAL EXHALED [...] Nitric Oxide (ppb) 03/17/2024 13.0 NAME: Chelsy Hills, BUS REPAIR SUPERVISOR PATIENT NAME: Sav Raymundo DATE: March 17, 2024 TIME: 8:16 AM [facility] No Panel Informationon 03-17 DLCO (ml/min/mmHg) 21.86 ml/min/mmHg [facility] DLCO LLN (ml/min/mmHg) 15.50 ml/min/mmHg [facility] DLCO PREDICTED (ml/min/mmHg) 25.43 ml/min/mmHg [facility] DLCO ULN (ml/min/mmHg) 35.37 ml/min/mmHg [facility] DLCO/VA (ml/min/mmHg/L) 4.85 ml/min/mmHg /L [facility] DLCO/VA PREDICTED (ml/min/mmHg/L) 3.84 ml/min/mmHg /L [facility] DLCOcor PREDICTED (ml/min/mmHg) 25.43 ml/min/mmHg [facility] ERV BOX (L) 0.01 L [facility] ERV PREDICTED (L) 1.32 L[facility] FRC Box (L) 2.34 L [facility] IC BOX (L) 2.71 L [facility] IC PREDICTED (L) 2.65 L[facility] RV Box (L) 2.07 L [facility] RV Box PREDICTED (L) 2.51 L [facility] RV/TLC Box (%) 44 % [facility] RV/TLC Box PREDICTED (%) 37 % [facility] SVC LLN (L) 2.94 L/S [facility] SVC PREDICTED (L) 3.97 L/S [facility] SVC ULN (L) 5.01 L/S [facility] TLC Box (L) 4.72 L [facility] TLC Box PREDICTED (L) 7.03 L [facility] (L) 4.51 L [facility] VA PREDICTED (L) 6.81 L [facility] VC (L) BOX 2.72 L [facility] [place] [address] [facility], [place] [address] Test Date: 2024-03-17 Pat Name: SAV RAYMUNDO Department: Room: Gender: Male Cytology Manager: : 1950 Requested By: Kathy Hartman MD Order Number: [id number] Reading MD: Kathy Hartman MD Interpretive Statements Current ATS/ERS acceptability and repeatability standards for DLCO met with 2 acceptable maneuvers. Lung Volumes repeatable x 3. //MW IMPRESSION: Decrease in TLC indicates restriction. The diffusing capacity is normal. Electronically Signed On 03-17-2024 14:02:07 EDT by Kathy Hartman MD ID: [id number] Name: SAV RAYMUNDO Race: White Ht: 69.96 in Wt: 209.44 lbs Age: 74 Gender: Male : 1950 Dx: Idiopathic interstitial pulmonary disease_ Smoking Hx: Non-smoker Doctor: LOUISE CESAR Test Date: 03/17/2024 Site: [facility] Tech: Was, Bryn PRE-BRONCH POST-BRONCH Pre LLN Pred ULN %Pred [...] acceptable maneuvers. Lung Volumes repeatable x 3. // PULMONARY FUNCTION LAB [facility] XR CHEST 2V FRONTAL/LATon XR [...] noted slightly increased. Right-sided Pleurx catheter present. Drum Handler: PSCAc Transcribe Date/Time: Mar 19 2024 4:42P Dictated by : KALEY CHAMBERS MD This examination was interpreted and the report reviewed and electronically signed by: KALEY CHAMBERS MD on Mar 19 2024 4:43PM EST [id number] [facility] XR Chest PA and Lateralon IMPRESSION: Interval decrease in size of small right-sided pleural effusion with adjacent atelectasis/consolidations . Transcribed Using Voice Recognition Transcribe Date/Time: Feb 05 2024 12:51P Dictated by: SHAWN TALAVERA MD This examination was interpreted and the report reviewed and electronically signed by: SHAWN TALAVERA MD on Feb 05 2024 12:52PM [facility] * * *Final Report* * [...] changes are present within the thoracic spine. [facility] Provider, Migel Hudson - 02/05/2024 * [...] MD on Feb 05 2024 12:52PM EST [facility] XR Chest PA and LateralOrder ed By: Ccf Provider on 02-05-2024 [facility] CNOVon 02-04-2024 CNOV Office Visit (THORHL ) -- SAV RAYMUNDO ([id number]) 1950 M Date Time Provider Department 02/04/24 1:30 PM TITA LANDRY During your visit today, we recorded the following information about you: Temperature Pulse Respiration Blood pressure 97.1 degrees 75/minute 16/minute 120/69 Weight Height 90.7 kg 1.829 m Tita Landry APRN.[employer]EDER 02/05/2024 4:19 PM Signed [facility] DEPARTMENT OF THORACIC SURGERY OUTPATIENT VISIT DATE February 04, 2024 OUTPATIENT VISIT TYPE ESTABLISHED PT NAME: Adams Pepe [facility] NO: [id number] THORACIC SURGEON: Ronaldo Flood M.D. DATE OF SERVICE: 02/04/2024 PRINCIPAL DX: Pleural Effusion SURGICAL HX 11/20/2023: R VATS pleural biopsy, right pbx mechanic and doxycycline pleurodesis, right Pleurx catheter insertion, right 20Fr chest tube insertion Surgical Pathology 11/20/2023: FINAL DIAGNOSIS A. Right pleura, biopsy: - Chronic pleuritis with mesothelial hyperplasia (see comment). B. Right pleura, biopsy: - Acute organizing and chronic pleuritis (see comment). DE/ 11/22/2023 Diagnosis Comment A. The biopsy contains [...] patient underwent R VATS pleural biopsy, right pbx mechanic and doxycycline pleurodesis, right Pleurx catheter insertion, right 20Fr chest tube insertion. He was hospitalized 12/20/23 for anasarca, possible autoimmune disease, recurrent pleural effusion. Imaging did not reveal any acute findings. Patient was admitted to [facility] and started on lasix drip, improving anasarca and pleural effusion. Pleurx catheter was drained daily with significantly decreasing output [phone]. He was worked up for an autoimmune [...] suspicious rashes (more content not included)... Normal [facility] XR CHEST 2V FRONTAL/LATon XR CHEST [...] on Feb 05 2024 12:52PM EST [id number] [facility] XR Chest PA and Lateralon Radiology Study observation (narrative) [facility] CNOVon 01-06-2024 CNOV Office Visit ([place] ) -- SAV RAYMUNDO ([id number]) 1950 M Date Time Provider Department 01/06/24 2:00 PM RUMA OSHEA During your visit today, we recorded the following information about you: Temperature Pulse Respiration Blood pressure 97.2 degrees 80/minute 16/minute 137/73 Weight Height 97.3 kg 1.829 m Ruma Oshea PA-C 01/06/2024 2:58 PM Signed [facility] - OUTPATIENT THORACIC SURGERY CLINIC NOTE PT NAME: Sav Raymundo [facility] NO: [id number] THORACIC SURGEON: Ronaldo Flood M.D. DATE OF SERVICE: 01/06/2024 PRINCIPAL DX: Pleural Effusion SURGICAL HX 11/20/2023: R VATS pleural biopsy, right pbx mechanic and doxycycline pleurodesis, right Pleurx catheter insertion, [...] any acute findings. Patient was admitted to [facility] and started on lasix drip, improving anasarca and pleural effusion. Pleurx catheter was drained daily with significantly decreasing output [phone]. He was worked up for an autoimmune [...] clinic. Patient does have follow up with economic adviser today and director of environmental services next week. Will fax over recent medical information to director of environmental services. Patient also going on a bus trip [...] with pm (more content not included)... Normal [facility] XR CHEST 2V FRONTAL/LATon XR CHEST [...] Jan 08 2024 9:10PM EST [id number] Normal [facility] Basic metabolic 2000 panelon 12-26-2023 Anion gap [Moles/Vol] 14 mmol/L Normal 8-15 [facility] Comment on above: Order Comment: Speci men Type: BLOOD SPECIMEN Ordering Facility: [facility] Address: [address] [place] [address] Performed By: #### 2 4321-2 #### [facility] CLIA [id number] [address] [place] [address] [place] Calcium [Mass/Vol] 9.0 mg/dL Normal 8.5-10.2 [facility] Comment on above: Order Comment: Speci men Type: BLOOD SPECIMEN Ordering Facility: [facility] Address: [address] [place] [address] Performed By: #### 2 4321-2 #### [facility] CLIA [id number] [address] [place] [address] [place] Chloride [Moles/Vol] 101 mmol/L Normal 98-107 [facility] Comment on above: Order Comment: Speci men Type: BLOOD SPECIMEN Ordering Facility: [facility] Address: [address] [place] [address] Performed By: #### 2 4321-2 #### [facility] CLIA [id number] [address] [place] [address] [place] CO2 [Moles/Vol] 23 mmol/L Normal 22-30 [facility] Comment on above: Order Comment: Alexandru campos Type: BLOOD SPECIMEN Ordering Facility: [facility] Address: [address] [place] [address] Performed By: #### 2 4321-2 #### [facility] CLIA [id number] [address] [place] [address] [place] Creatinine [Mass/Vol] 0.96 mg/dL Normal 0.73-1.22 [facility] Comment on above: Order Comment: Alexandru men Type: BLOOD SPECIMEN Ordering Facility: [facility] Address: [address] [place] [address] Performed By: #### 2 4321-2 #### [facility] CLIA [id number] [address] [place] [address] [place] Creatinine and Glomerular filtration rate.predicted panel (S/P/Bld) 84 mL/min/1.73m??? Normal >=60 [facility] Comment on above: Order Comment: Alexandru campos Type: BLOOD SPECIMEN Ordering Facility: [facility] Address: [address] [place] [address] Result Comment: Kristel mated Glomerular Filtration Rate [...] GFR. Performed By: #### 2 4321-2 #### [facility] CLIA [id number] [address] [place] [address] [place] Glucose [Mass/Vol] 152 mg/dL High 74-99 [facility] Comment on above: Order Comment: Alexandru campos Type: BLOOD SPECIMEN Ordering Facility: [facility] Address: [address] [place] [address] Result Comment: The [place] Diabetes Association (ADA) provides guidance for cutoff [...] Standards of Medical Care in Diabetes 2016, [place] Diabetes Association. Diabetes Care. 2016.39(Suppl 1). Performed By: #### 2 4321-2 #### [facility] CLIA [id number] [address] [place] [address] [place] Potassium [Moles/Vol] 4.1 mmol/L Normal 3.7-5.1 [facility] Comment on above: Order Comment: Alexandru campos Type: BLOOD SPECIMEN Ordering Facility: [facility] Address: [address] [place] [address] Performed By: #### 2 4321-2 #### [facility] CLIA [id number] [address] [place] [address] [place] Sodium [Moles/Vol] 138 mmol/L Normal 136-144 [facility] Comment on above: Order Comment: Alexandru campos Type: BLOOD SPECIMEN Ordering Facility: [facility] Address: [address] [place] [address] Performed By: #### 2 4321-2 #### [facility] CLIA [id number] [address] [place] [address] [place] Urea nitrogen [Mass/Vol] 19 mg/dL Normal 9-24 [facility] Comment on above: Order Comment: Alexandru campos Type: BLOOD SPECIMEN Ordering Facility: [facility] Address: [address] [place] [address] Performed By: #### 2 4321-2 #### [facility] CLIA [id number] [address] [place] [address] [place] CBC panel Auto (Bld)on 12-25 Erythrocyte distribution width (RBC) [Ratio] 14.8 % Normal 11.5-15.0 [facility] Comment on above: Order Comment: Speci men Type: BLOOD SPECIMEN Ordering Facility: [facility] Address: [address] [place] [address] Performed By: #### 5 8410-2 #### [facility] CLIA [id number] [address] [place] [address] [place] Hematocrit (Bld) [Volume fraction] 39.2 % Normal 39.0-51.0 [facility] Comment on above: Order Comment: Speci men Type: BLOOD SPECIMEN Ordering Facility: [facility] Address: [address] [place] [address] Performed By: #### 5 8410-2 #### [facility] CLIA [id number] [address] [place] [address] [place] Hemoglobin (Bld) [Mass/Vol] 12.5 g/dL Low 13.0-17.0 [facility] Comment on above: Order Comment: Speci men Type: BLOOD SPECIMEN Ordering Facility: [facility] Address: [address] [place] [address] Performed By: #### 5 8410-2 #### [facility] CLIA [id number] [address] [place] [address] [place] MCH (RBC) [Entitic mass] 29.6 pg Normal 26.0-34.0 [facility] Comment on above: Order Comment: Speci men Type: BLOOD SPECIMEN Ordering Facility: [facility] Address: [address] [place] [address] Performed By: #### 5 8410-2 #### [facility] CLIA [id number] [address] [place] [address] [place] MCHC (RBC) [Mass/Vol] 31.9 g/dL Normal 30.5-36.0 [facility] Comment on above: Order Comment: Speci men Type: BLOOD SPECIMEN Ordering Facility: [facility] Address: [address] [place] [address] Performed By: #### 5 8410-2 #### [facility] CLIA [id number] [address] [place] [address] [place] MCV (RBC) [Entitic vol] 92.9 fL Normal 80.0-100.0 [facility] Comment on above: Order Comment: Speci men Type: BLOOD SPECIMEN Ordering Facility: [facility] Address: [address] [place] [address] Performed By: #### 5 8410-2 #### [facility] CLIA [id number] [address] [place] [address] [place] Nucleated RBC (Bld) [#/Vol] 10*3/uL Normal <0.01 [facility] Comment on above: Order Comment: Speci men Type: BLOOD SPECIMEN Ordering Facility: [facility] Address: [address] [place] [address] Performed By: #### 5 8410-2 #### [facility] CLIA [id number] [address] [place] [address] [place] Platelet mean volume (Bld) [Entitic vol] 10.3 fL Normal 9.0-12.7 [facility] Comment on above: Order Comment: Speci men Type: BLOOD SPECIMEN Ordering Facility: [facility] Address: [address] [place] [address] Performed By: #### 5 8410-2 #### [facility] CLIA [id number] [address] [place] [address] [place] Platelets (Bld) [#/Vol] 218 10*3/uL Normal 150-400 [facility] Comment on above: Order Comment: Speci men Type: BLOOD SPECIMEN Ordering Facility: [facility] Address: [address] [place] [address] Performed By: #### 5 8410-2 #### [facility] CLIA [id number] [address] [place] [address] [place] RBC (Bld) [#/Vol] 4.22 10*6/uL Normal 4.20-6.00 [facility] Comment on above: Order Comment: Speci men Type: BLOOD SPECIMEN Ordering Facility: [facility] Address: [address] [place] [address] Performed By: #### 5 8410-2 #### [facility] CLIA [id number] [address] [place] [id number] [place] WBC (Bld) [#/Vol] 5.29 10*3/uL Normal 3.70-11.00 [facility] Comment on above: Order Comment: Speci men Type: BLOOD SPECIMEN Ordering Facility: [facility] Address: [address] [place] [id number] Performed By: #### 5 8410-2 #### [facility] CLIA [id number] [address] [place] [id number] [facility] CNDSon 12-26-2023 CNDS HNO ID: [id number] Author: JOSE ANTONIO HOPPER MD Service: Family Practice Author Type: Physician [...] TEAM: [facility] Doctor: Jose Antonio Hopper MD Primary Care Provider: Yuli Mariscal DO My Medical Team Members: Treatment Team: Attending Provider: Jose Antonio Hopper MD Consulting: Yehuda Dial MD MY CONDITION [...] was drained daily with significantly decreased amount [phone] mL. The electrolytes have been replaced daily. [...] Appointments Follow-Up Appointment - Dr. Jose Antonio Hopper When: In 3 weeks Patient/Parents to call for appointment?: Yes Jose Antonio Hopper MD [phone] [address] [facility] [address] PCP Requested Referral Additional Provider to Provider Information: No notes on file Treatment Team: Attending Provider: Jose Antonio Hopper MD Consulting: Yehuda Dial MD Transitions of Care Critical Issues: LAB MONITORING NEEDED: BMP,Magnesium on 01/02/2024 SPECIALIST FOLLOW-UP: Dr Dial on 01/06/2024 LABS AND PROCEDURES PENDING AT DISCHARGE: No pending results. FOLLOW-UP APPOINTMENTS ALREADY SCHEDULED WITH A [facility] PROVIDER: Future Appointments Date Time Provider Department Center 01/06/2024 1:15 PM XR [facility] 01/06/2024 2:00 PM Ruma Oshea PA-C [facility] [place] [facility] Allergen Reactions Tramadol Mental Status Change DISCHARGE MEDICATION: Medication List START maryjane (more content not included)... [facility] NURSING PROGon 12-26-2023 NURSING PROG HNO ID: [id number] Author: ROJAS CLINE RN Service: Nursing Author Type: Registered Nurse Type: Nursing Progress Note Filed: 12/26/2023 18:03 Note Text: Patient given discharge paperwork. All question and concerns addressed. Patient transport home via family transport [facility] XR SINUS 3V PA/DAN/LATon 12-26-2023 XR [...] Dec 27 2023 8:21AM EST [id number] Normal [facility] Basic metabolic 2000 panelon 12-25-2023 Anion gap [Moles/Vol] 12 mmol/L Normal 8-15 [facility] Comment on above: Order Comment: Speci men Type: BLOOD SPECIMEN Ordering Facility: [facility] Address: [address] [place] [address] Performed By: #### M PO #### [facility] CLIA [id number] [address] [place] [address] Calcium [Mass/Vol] 9.0 mg/dL Normal 8.5-10.2 [facility] Comment on above: Order Comment: Speci men Type: BLOOD SPECIMEN Ordering Facility: [facility] Address: [address] [place] [address] Performed By: #### M PO #### [facility] CLIA [id number] [address] [place] [address] Chloride [Moles/Vol] 95 mmol/L Low 98-107 [facility] Comment on above: Order Comment: Speci men Type: BLOOD SPECIMEN Ordering Facility: [facility] Address: [address] [place] [address] Performed By: #### M PO #### [facility] CLIA [id number] [address] [place] [address] CO2 [Moles/Vol] 27 mmol/L Normal 22-30 [facility] Comment on above: Order Comment: Speci men Type: BLOOD SPECIMEN Ordering Facility: [facility] Address: [facility] [place] [address] Performed By: #### M PO #### [facility] CLIA [id number] [address] [place] [address] Creatinine [Mass/Vol] 1.07 mg/dL Normal 0.73-1.22 [facility] Comment on above: Order Comment: Speci men Type: BLOOD SPECIMEN Ordering Facility: [facility] Address: [address] [place] [address] Performed By: #### M PO #### [facility] CLIA [id number] [address] [place], [place] [address] Creatinine and Glomerular filtration rate.predicted panel (S/P/Bld) 74 mL/min/1.73m??? Normal >=60 [facility] Comment on above: Order Comment: Alexandru campos Type: BLOOD SPECIMEN Ordering Facility: [facility] Address: [address] [place] [address] Result Comment: Kristel adair Glomerular Filtration Rate (eGFR) is calculated using [...] GFR. Performed By: #### M PO #### [facility] CLIA [id number] [address] [place], [place] [address] Glucose [Mass/Vol] 108 mg/dL High 74-99 [facility] Comment on above: Order Comment: Alexandru campos Type: BLOOD SPECIMEN Ordering Facility: [facility] Address: [address] [place] [address] Result Comment: The [place] Diabetes Association (ADA) provides guidance for cutoff [...] Standards of Medical Care in Diabetes 2016, [place] Diabetes Association. Diabetes Care. 2016.39(Suppl 1). Performed By: #### M PO #### [facility] CLIA [id number] [address] [place] [address] Potassium [Moles/Vol] 3.7 mmol/L Normal 3.7-5.1 [facility] Comment on above: Order Comment: Alexandru campos Type: BLOOD SPECIMEN Ordering Facility: [facility] Address: [address] [place] [address] Performed By: #### M PO #### [facility] CLIA [id number] [address] [place] [address] Sodium [Moles/Vol] 134 mmol/L Low 136-144 [facility] Comment on above: Order Comment: Alexandru campos Type: BLOOD SPECIMEN Ordering Facility: [facility] Address: [address] [place] [address] Performed By: #### M PO #### [facility] CLIA [id number] [address] [place] [address] Urea nitrogen [Mass/Vol] 24 mg/dL Normal 9-24 [facility] Comment on above: Order Comment: Alexandru campos Type: BLOOD SPECIMEN Ordering Facility: [facility] Address: [address] [place] [address] Performed By: #### M PO #### [facility] CLIA [id number] [address] [place], [place] [address] CONSULTon 12-25-2023 CONSULT HNO ID: [id number] Author: YEHUDA DIAL MD Service: Rheumatology Author Type: Physician Type: Consults Filed: 12/25/2023 11:40 Note Text: CONSULTATION: RHEUMATOLOGY SERVICE SERVICE DATE: 12/25/2023 SERVICE TIME: 10:55 AM REASON FOR CONSULT: possible vasculitis REQUESTING PHYSICIAN: Jose Antonio Hopper MD PRIMARY CARE PHYSICIAN: Yuli Mariscal, DO [...] underlying condition. The subject is admitted to [facility] for anasarca. In the past few weeks [...] ORAL BID calcium carbonate 1,250 mg tab(s) (OS-ADRIANNE 500) 1,250 mg ORAL BID furosemide 80 [...] seasonal allergi (more content not included)... Normal [facility] CRP [Mass/Vol] 1.1 mg/dL High <0.9 [facility] Comment on above: Order Comment: Speci men Type: BLOOD SPECIMEN Ordering Facility: [facility] Address: [address] [place] [address] Performed By: #### M PO #### [facility] CLIA [id number] [address] [facility] [address] [address] ESR Westergren method (Bld) [Velocity]on 12-25-2023 ESR (Bld) [Velocity] 28 mm/h High 0-15 [facility] Comment on above: Order Comment: Speci men Type: BLOOD SPECIMEN Ordering Facility: [facility] Address: [address] [place] [address] Performed By: #### 1 1572-5 #### [facility] CLIA [id number] [address] [facility] [address] [place] IMMUNOFIXATION SCREEN, SERUM on 12-25-2023 MPA RESULT No M protein is identified. Normal No M protein is identified. [facility] Comment on above: Order Comment: Speci men Type: BLOOD SPECIMENOrdering Facility: [facility] Address: [address] [place] [address] Performed By: #### I FESC ####[facility] [id number] [address] OF [place] STAFF REVIEW (MPA) Reviewed by Dr. Elzbieta Farley MD Normal [facility] Comment on above: Order Comment: Speci men Type: BLOOD SPECIMENOrdering Facility: [facility] Address: [address] [place] [address] Performed By: #### I FESC ####[facility] [id number] [place] [id number] [place] MYELOPEROXIDASEon 12-25-2023 MYELOPEROXIDASE 328 pmol/L Normal <470 [facility] Comment on above: Order Comment: Speci men Type: BLOOD SPECIMEN Ordering Facility: [facility] Address: [address] [place] [address] Result Comment: Base d on a high [...] analytical performance characteristics have been determined by [facility]. It has not been cleared or approved by the U.S. Food and Drug Administration. This assay has been validated pursuant to the CLIA regulations and is used for clinical purposes. Received Date: [id number] Performed By: #### M PO #### [facility] CLIA [id number] [address] [place] [address] NM CARDIAC AMYLOID SPECT/coding coordinator n 12-25-2023 NM CARDIAC AMYLOID SPECT/CT * * *Final Report* * * DATE OF EXAM: Dec 25 2023 3:56PM [facility] 0847 - NM CARDIAC AMYLOID SPECT/CT / PROCEDURE REASON: Cardiac amyloidosis suspected, further testing * * * * Physician Interpretation * * * * RESULT: OK CTAC Report: [facility] Date of service: 12/25/2023 3:18:39 PM CTAC [...] pathologic assessment as appropriate. Nuclear Med Report: [id number] PLANAR and SPECT: Myocardial imaging of the chest with CT attenuation correction was performed at 3 hours post IV injection of Tc-99m Pyrophosphate. See administered doses below. [facility] Date of service: 12/25/2023 3:18:39 PM Ordering [...] Dec 25 2023 4:19PM EST [id number] Normal [facility] PROTEIN ELECTROPHORESIS SERU M (P)on 12-25-2023 Albumin [Mass/Vol] 3.52 g/dL Normal 3.43-5.41 [facility] Comment on above: Order Comment: Speci men Type: BLOOD SPECIMEN Ordering Facility: [facility] Address: [address] [place] [address] Performed By: #### L [id number] #### [facility] CLIA [id number] [address] [place] [address] [place] Alpha 1 globulin Elph [Mass/Vol] 0.34 g/dL Normal 0.18-0.43 [facility] Comment on above: Order Comment: Speci men Type: BLOOD SPECIMEN Ordering Facility: [facility] Address: [address] [place] [address] Performed By: #### L [id number] #### [facility] CLIA [id number] [address] [place] [address] [place] Alpha 2 globulin Elph [Mass/Vol] 0.86 g/dL Normal 0.42-0.98 [facility] Comment on above: Order Comment: Speci men Type: BLOOD SPECIMEN Ordering Facility: [facility] Address: [address] [place] [address] Performed By: #### L [id number] #### [facility] CLIA [id number] [address] [place] [address] [place] Beta globulin Elph [Mass/Vol] 0.91 g/dL Normal 0.61-1.17 [facility] Comment on above: Order Comment: Speci men Type: BLOOD SPECIMEN Ordering Facility: [facility] Address: [address] [place] [address] Performed By: #### L [id number] #### [facility] CLIA [id number] [address] [place] [address] [place] Gamma globulin Elph [Mass/Vol] 0.66 g/dL Normal 0.53-1.51 [facility] Comment on above: Order Comment: Speci men Type: BLOOD SPECIMEN Ordering Facility: [facility] Address: [address] [place] [address] Performed By: #### L [id number] #### [facility] CLIA [id number] [address] [place] [address] [place] M-PROTEIN LOCATION Normal [facility] Comment on above: Order Comment: Speci men Type: BLOOD SPECIMEN Ordering Facility: [facility] Address: [address] [place] [address] Result Comment: Not Applicable. Performed By: #### L [id number] #### [facility] CLIA [id number] [address] [place] [address] [place] Protein Fractions [Interp] No definitive M protein is identified on protein electrophoresis. Normal No definitive M protein is identified on protein electrophor esis. [facility] Comment on above: Order Comment: Speci men Type: BLOOD SPECIMEN Ordering Facility: [facility] Address: [address] [place] [address] Performed By: #### L [id number] #### [facility] CLIA [id number] [address] [place] [address] [place] Protein.monoclonal Elph [Mass/Vol] 0.00 g/dL Normal <=0.00 [facility] Comment on above: Order Comment: Speci men Type: BLOOD SPECIMEN Ordering Facility: [facility] Address: [address] [place] [address] Performed By: #### L [id number] #### [facility] CLIA [id number] [address] [place] [address] [place] SPE STAFF REVIEW Reviewed by Dr. Elzbieta Farley MD [facility] Comment on above: Order Comment: Speci men Type: BLOOD SPECIMEN Ordering Facility: [facility] Address: [address] [place] [address] Performed By: #### L [id number] #### [facility] CLIA [id number] [address] [place] [address] [place] Prot SerPl-mCncon 12-25-2023 Protein [Mass/Vol] 6.3 g/dL Normal 6.3-8.0 [facility] Comment on above: Order Comment: Speci men Type: BLOOD SPECIMEN Ordering Facility: [facility] Address: [address] [place] [address] Performed By: #### 1 988-5, 69842-3 #### [facility] CLIA [id number] [address] [place] [address] [place] TSH SerPl-aCncon 12-25-2023 TSH Qn 2.300 m[IU]/L Normal 0.270-4.200 [facility] Comment on above: Order Comment: Speci men Type: BLOOD SPECIMEN Ordering Facility: [facility] Address: [address] [place] [address] Performed By: #### 1 988-5, 98446-3 #### [facility] CLIA [id number] [address] [place] [address] [place] Basic metabolic 2000 panelon 12-24-2023 Anion gap [Moles/Vol] 12 mmol/L Normal 8-15 [facility] Comment on above: Order Comment: Speci men Type: BLOOD SPECIMEN Ordering Facility: [facility] Address: [address] [place] [address] Performed By: #### M PO #### [facility] CLIA [id number] [address] [place] [address] Calcium [Mass/Vol] 9.5 mg/dL Normal 8.5-10.2 [facility] Comment on above: Order Comment: Speci beth Type: BLOOD SPECIMEN Ordering Facility: [facility] Address: [address] [place] [address] Performed By: #### M PO #### [facility] CLIA [id number] [address] [place] [address] Chloride [Moles/Vol] 94 mmol/L Low 98-107 [facility] Comment on above: Order Comment: Antonellai men Type: BLOOD SPECIMEN Ordering Facility: [facility] Address: [address] [place] [address] Performed By: #### M PO #### [facility] CLIA [id number] [address] [place] [address] CO2 [Moles/Vol] 28 mmol/L Normal 22-30 [facility] Comment on above: Order Comment: Alexandru campos Type: BLOOD SPECIMEN Ordering Facility: [facility] Address: [address] [place] [address] Performed By: #### M PO #### [facility] CLIA [id number] [address] [place], [place] [address] Creatinine [Mass/Vol] 1.27 mg/dL High 0.73-1.22 [facility] Comment on above: Order Comment: Alexandru campos Type: BLOOD SPECIMEN Ordering Facility: [facility] Address: [address] [place] [address] Performed By: #### M PO #### [facility] CLIA [id number] [address] [place], [place] [address] Creatinine and Glomerular filtration rate.predicted panel (S/P/Bld) 60 mL/min/1.73m??? Normal >=60 [facility] Comment on above: Order Comment: Alexandru campos Type: BLOOD SPECIMEN Ordering Facility: [facility] Address: [address] [place] [address] Result Comment: [facility] Glomerular Filtration Rate (eGFR) is calculated [...] GFR. Performed By: #### M PO #### [facility] CLIA [id number] [address] [place] [address] Glucose [Mass/Vol] 134 mg/dL High 74-99 [facility] Comment on above: Order Comment: Alexandru campos Type: BLOOD SPECIMEN Ordering Facility: [facility] Address: [address] [place] [address] Result Comment: The [place] Diabetes Association (ADA) provides guidance for cutoff [...] Standards of Medical Care in Diabetes 2016, [place] Diabetes Association. Diabetes Care. 2016.39(Suppl 1). Performed By: #### M PO #### [facility] CLIA [id number] [address] [place] [address] Potassium [Moles/Vol] 3.6 mmol/L Low 3.7-5.1 [facility] Comment on above: Order Comment: Alexandru campos Type: BLOOD SPECIMEN Ordering Facility: [facility] Address: [address] [place] [address] Performed By: #### M PO #### [facility] CLIA [id number] [address] [place] [address]89 Sodium [Moles/Vol] 134 mmol/L Low 136-144 [facility] Comment on above: Order Comment: Alexandru campos Type: BLOOD SPECIMEN Ordering Facility: [facility] Address: [address] [place] [address] Performed By: #### M PO #### [facility] CLIA [id number] [address] [place] [address] Urea nitrogen [Mass/Vol] 25 mg/dL High 9-24 [facility] Comment on above: Order Comment: Speci men Type: BLOOD SPECIMEN Ordering Facility: [facility] Address: [address] [place] [id number] Performed By: #### M PO #### [facility] CLIA [id number] [address] [facility] [address] [address] Anion gap [Moles/Vol] 14 mmol/L Normal 8-15 [facility] Comment on above: Order Comment: Speci men Type: BLOOD SPECIMEN Ordering Facility: [facility] Address: [place] [address] Performed By: #### 1 988-5, 51745-6 #### [facility] CLIA [id number] [address] [place] [address] [place] Calcium [Mass/Vol] 9.4 mg/dL Normal 8.5-10.2 [facility] Comment on above: Order Comment: Speci men Type: BLOOD SPECIMEN Ordering Facility: [facility] Address: [place] [id number] Performed By: #### 1 988-5, 33608-5 #### [facility] CLIA [id number] [address] [place] [address] [place] Chloride [Moles/Vol] 95 mmol/L Low 98-107 [facility] Comment on above: Order Comment: Speci men Type: BLOOD SPECIMEN Ordering Facility: [facility] [place] [address] Performed By: #### 1 988-5, #### [facility] CLIA [id number] [address] [place] [address] [place] CO2 [Moles/Vol] 27 mmol/L Normal 22-30 [facility] Comment on above: Order Comment: Speci men Type: BLOOD SPECIMEN Ordering Facility: [facility] Address: [facility] [place] [address] Performed By: #### 1 988-5, 08460-1 #### [facility] CLIA [id number] [address] [place] [address] [place] Creatinine [Mass/Vol] 1.34 mg/dL High 0.73-1.22 [facility] Comment on above: Order Comment: Alexandru campos Type: BLOOD SPECIMEN Ordering Facility: [facility] Address: [address] [place] [address] Performed By: #### 1 988-5, 24548-0 #### [facility] CLIA [id number] [address] [place] [address] [place] Creatinine and Glomerular filtration rate.predicted panel (S/P/Bld) 56 mL/min/1.73m??? Low >=60 [facility] Comment on above: Order Comment: Alexandru campos Type: BLOOD SPECIMEN Ordering Facility: [facility] Address: [address] [place] [address] Result Comment: [facility] Glomerular Filtration Rate (eGFR) is calculated using [...] actual GFR. Performed By: #### 1 988-5, 46912-9 #### [facility] [place] [id number] [address] [place] [address] [place] Glucose [Mass/Vol] 100 mg/dL High 74-99 [facility] Comment on above: Order Comment: Alexandru campos Type: BLOOD SPECIMEN Ordering Facility: [facility] Address: [address] [place] [address] Result Comment: The [place] Diabetes Association (ADA) provides guidance for cutoff [...] Standards of Medical Care in Diabetes 2016, [place] Diabetes Association. Diabetes Care. 2016.39(Suppl 1). Performed By: #### 1 988-5, 01243-9 #### [facility] CLIA [id number] [address] [place] [address] [place] Potassium [Moles/Vol] 3.6 mmol/L Low 3.7-5.1 [facility] Comment on above: Order Comment: Speci men Type: BLOOD SPECIMEN Ordering Facility: [facility] Address: [address] [place] [address] Performed By: #### 1 988-5, #### [facility] CLIA [id number] [address] [place] [address] [place] Sodium [Moles/Vol] 136 mmol/L Normal 136-144 [facility] Comment on above: Order Comment: Speci men Type: BLOOD SPECIMEN Ordering Facility: [facility] Address: [address] [place] [address] Performed By: #### 1 988-5, #### [facility] CLIA [id number] [address] [place] [address] [place] Urea nitrogen [Mass/Vol] 26 mg/dL High 9-24 [facility] Comment on above: Order Comment: Speci men Type: BLOOD SPECIMEN Ordering Facility: [facility] Address: [address] [place] [id number] Performed By: #### 1 988-5, 84406-6 #### [facility] CLIA [id number] [address] [place] [address] [place] Magnesium SerPl-mCncon 12-23 Magnesium [Mass/Vol] 2.2 mg/dL Normal 1.7-2.3 [facility] Comment on above: Order Comment: Speci men Type: BLOOD SPECIMEN Ordering Facility: [facility] Address: [address] [place] [address] Performed By: #### 1 988-5, 26629-1 #### [facility] CLIA [id number] [address] [place] [address] [place] NURSING PROGon 12-24-2023 NURSING PROG HNO ID: [id number] Author: SONIYA JO, EVAN Service: ? Author Type: Registered Nurse Type: Nursing Progress Note Filed: 12/24/2023 22:50 Note Text: 1910- Assumed care of pt from outgoing RN, pt seen lying in bed A/O X 3, on RA, no pain or discomfort reported. Safety measures in place and call light within reach. Will continue to monitor. [facility] NURSING PROG HNO ID: [id number] Author: ELIZABETH ROWAN RN Service: Nursing Author Type: Registered Nurse Type: Nursing Progress Note Filed: 12/24/2023 10:54 Note Text: Spoke with Dr Pimentel regarding orders for LR bolus 500ml, and PO lasix 80mg. Instructed to given bolus first, then Lasix an hour after. Normal [facility] NURSING PROG HNO ID: [id number] Author: DWIGHT GLYNN RN Service: Nursing Author Type: Registered Nurse Type: Nursing Progress Note Filed: 12/24/2023 07:56 Note Text: 0200: Spoke with shift stacker ADRIENNE regarding patient BP of 86/59. Pt is asymptomatic and ADRIENNE is not worried about the blood pressure at this time. I was advised to page again if BP goes below 80 or if patient becomes symptomatic. Normal [facility] Urate SerPl-mCncon 4 Urate [Mass/Vol] 7.6 mg/dL Normal 4.0-8.1 [facility] Comment on above: Order Comment: Speci men Type: BLOOD SPECIMEN Ordering Facility: [facility] Address: [address] [place] [address] Performed By: #### M PO #### [facility] CLIA [id number] [address] [place] [address] XR CHEST 2V FRONTAL/LATon XR CHEST 2V [...] Dec 25 2023 7:53AM EST [id number] Normal [facility] Basic metabolic 2000 panelon 12-23-2023 Anion gap [Moles/Vol] 17 mmol/L High 8-15 [facility] Comment on above: Order Comment: Alexandru campos Type: BLOOD SPECIMENOrdering Facility: [facility] Address: [address] [place] [address] Performed By: #### 1 9123-9, 50032-1 ####[facility] [id number] [place] [address] [place] Calcium [Mass/Vol] 9.5 mg/dL Normal 8.5-10.2 [facility] Comment on above: Order Comment: Alexandru campos Type: BLOOD SPECIMENOrdering Facility: [facility] Address: [address] [place] [address] Performed By: #### 1 9123-9, 78523-9 ####[facility] [id number] [place] [address] [place] Chloride [Moles/Vol] 97 mmol/L Low 98-107 [facility] Comment on above: Order Comment: Speci men Type: BLOOD SPECIMENOrdering Facility: [facility] Address: [address] [place] [address] Performed By: #### 1 9123-9, 84537-9 ####[facility] [id number] [place] [address] [place] CO2 [Moles/Vol] 27 mmol/L Normal 22-30 [facility] Comment on above: Order Comment: Speci men Type: BLOOD SPECIMENOrdering Facility: [facility] Address: [address] [place] [address] Performed By: #### 1 91239, 38825-3 ####[facility] [id number] [place] [address] [place] Creatinine [Mass/Vol] 1.14 mg/dL Normal 0.73-1.22 [facility] Comment on above: Order Comment: Speci men Type: BLOOD SPECIMENOrdering Facility: [facility] Address: [address] [place] [address] Performed By: #### 1 91239, 15938-9 ####[facility] [id number] [address] [place] Creatinine and Glomerular filtration rate.predicted panel (S/P/Bld) 68 mL/min/1.73m??? Normal >=60 [facility] Comment on above: Order Comment: Speci men Type: BLOOD SPECIMENOrdering Facility: [facility] Address: [address] [place] [address] Result Comment: Kristel mated Glomerular Filtration Rate [...] actual GFR. Performed By: #### 1 9123-9, 21190-4 ####[facility] [id number] [place] [address] [place] Glucose [Mass/Vol] 113 mg/dL High 74-99 [facility] Comment on above: Order Comment: Alexandru campos Type: BLOOD SPECIMENOrdering Facility: [facility] Address: [address] [place] [address] Result Comment: The [place] Diabetes Association (ADA) provides guidance for cutoff [...] Standards of Medical Care in Diabetes 2016, [place] Diabetes Association. Diabetes Care. 2016.39(Suppl 1). Performed By: #### 1 9123-9, 02946-5 ####[facility] [id number] [place] [address] [place] Potassium [Moles/Vol] 3.8 mmol/L Normal 3.7-5.1 [facility] Comment on above: Order Comment: Alexandru campos Type: BLOOD SPECIMENOrdering Facility: [facility] Address: [address] [place] [address] Performed By: #### 1 9123-9, 60637-8 ####[facility] [id number] [place] [address] [place] Sodium [Moles/Vol] 141 mmol/L Normal 136-144 [facility] Comment on above: Order Comment: Alexandru campos Type: BLOOD SPECIMENOrdering Facility: [facility] Address: [address] [place] [address] Performed By: #### 1 9123-9, 05740-8 ####[facility] [id number] [place] [address] [place] Urea nitrogen [Mass/Vol] 15 mg/dL Normal 9-24 [facility] Comment on above: Order Comment: Speci men Type: BLOOD SPECIMENOrdering Facility: [facility] Address: [address] [facility] [place] [address] Performed By: #### 1 9123-9, 42373-0 ####[facility]ORY[facility]IA [id number] [place] [address] [place] Magnesium SerPl-mCncon 12-22 Magnesium [Mass/Vol] 1.9 mg/dL Normal 1.7-2.3 [facility] Comment on above: Order Comment: Speci men Type: BLOOD SPECIMENOrdering Facility: [facility] Address: [address] [place], [place] [address] Performed By: #### 1 9123-9, 52308-4 ####[facility]ORY[facility] [id number] [place] [id number] [place] Basic metabolic 2000 panelon 12-22-2023 Anion gap [Moles/Vol] 16 mmol/L High 8-15 [facility] Comment on above: Order Comment: Speci men Type: BLOOD SPECIMEN Ordering Facility: [facility] Address: [address] [place] [address] Performed By: #### M PO #### [facility] CLIA [id number] [address] [place] [address] Calcium [Mass/Vol] 9.0 mg/dL Normal 8.5-10.2 [facility] Comment on above: Order Comment: Speci men Type: BLOOD SPECIMEN Ordering Facility: [facility] Address: [address] [place] [address] Performed By: #### M PO #### [facility] CLIA [id number] [address] [place] [address]025 Chloride [Moles/Vol] 99 mmol/L Normal 98-107 [facility] Comment on above: Order Comment: Speci men Type: BLOOD SPECIMEN Ordering Facility: [facility] Address: [address] [place] [address] Performed By: #### M PO #### [facility] CLIA [id number] [address] [place] [address]90 CO2 [Moles/Vol] 24 mmol/L Normal 22-30 [facility] Comment on above: Order Comment: Alexandru campos Type: BLOOD SPECIMEN Ordering Facility: [facility] Address: [address] [place] [place] [id number] Performed By: #### M PO #### [facility] CLIA [id number] [address] [place] [address] Creatinine [Mass/Vol] 0.98 mg/dL Normal 0.73-1.22 [facility] Comment on above: Order Comment: Alexandru men Type: BLOOD SPECIMEN Ordering Facility: [facility] Address: [address] [place] [address] Performed By: #### M PO #### [facility] CLIA [id number] [address] [place] [address] Creatinine and Glomerular filtration rate.predicted panel (S/P/Bld) 82 mL/min/1.73m??? Normal >=60 [facility] Comment on above: Order Comment: Alexandru campos Type: BLOOD SPECIMEN Ordering Facility: [facility] Address: [address] [place] [address] Result Comment: Kristel mated Glomerular Filtration Rate [...] GFR. Performed By: #### M PO #### [facility] CLIA [id number] [address] [place] [address] Glucose [Mass/Vol] 109 mg/dL High 74-99 [facility] Comment on above: Order Comment: Alexandru campos Type: BLOOD SPECIMEN Ordering Facility: [facility] Address: [address] [place], [place] [address] Result Comment: The [place] Diabetes Association (ADA) provides guidance for cutoff [...] Standards of Medical Care in Diabetes 2016, [place] Diabetes [employer]. Diabetes Care. 2016.39(Suppl 1). Performed By: #### M PO #### [facility] CLIA [id number] [address] [place] [address] Potassium [Moles/Vol] 3.3 mmol/L Low 3.7-5.1 [facility] Comment on above: Order Comment: Alexandru campos Type: BLOOD SPECIMEN Ordering Facility: [facility] Address: [address] [place] [address] Performed By: #### M PO #### [facility] CLIA [id number] [address] [place] [address] Sodium [Moles/Vol] 139 mmol/L Normal 136-144 [facility] Comment on above: Order Comment: Alexandru campos Type: BLOOD SPECIMEN Ordering Facility: [facility] Address: [address] [place] [address] Performed By: #### M PO #### [facility] CLIA [id number] [address] [place] [address] Urea nitrogen [Mass/Vol] 12 mg/dL Normal 9-24 [facility] Comment on above: Order Comment: Alexandru campos Type: BLOOD SPECIMEN Ordering Facility: [facility] Address: [address] [place] [address] Performed By: #### M PO #### [facility] CLIA [id number] [address] [place] [address] 75873 CBC panel Auto (Bld)on 12-21 Erythrocyte distribution width (RBC) [Ratio] 15.3 % High 11.5-15.0 [facility] Comment on above: Order Comment: Alexandru campos Type: BLOOD SPECIMEN Ordering Facility: [facility] Address: [address] [place], [place] [address] Performed By: #### M PO #### [facility] CLIA [id number] [address] [place], [place] [address] Hematocrit (Bld) [Volume fraction] 39.3 % Normal 39.0-51.0 [facility] Comment on above: Order Comment: Speci men Type: BLOOD SPECIMEN Ordering Facility: [facility] Address: [address] [place] [address] Performed By: #### M PO #### [facility] CLIA [id number] [address] [place], [place] [address] Hemoglobin (Bld) [Mass/Vol] 12.7 g/dL Low 13.0-17.0 [facility] Comment on above: Order Comment: Speci men Type: BLOOD SPECIMEN Ordering Facility: [facility] Address: [address] [place] [address] Performed By: #### M PO #### [facility] CLIA [id number] [address] [place], [place] [address] MCH (RBC) [Entitic mass] 29.6 pg Normal 26.0-34.0 [facility] Comment on above: Order Comment: Speci men Type: BLOOD SPECIMEN Ordering Facility: [facility] Address: [address] [place] [address] Performed By: #### M PO #### [facility] CLIA [id number] [address] [place], [place] [address] MCHC (RBC) [Mass/Vol] 32.3 g/dL Normal 30.5-36.0 [facility] Comment on above: Order Comment: Speci men Type: BLOOD SPECIMEN Ordering Facility: [facility] Address: [address] [place] [address] Performed By: #### M PO #### [facility] CLIA [id number] [address] [place] [address] MCV (RBC) [Entitic vol] 91.6 fL Normal 80.0-100.0 [facility] Comment on above: Order Comment: Speci men Type: BLOOD SPECIMEN Ordering Facility: [facility] Address: [address] [place] [address] Performed By: #### M PO #### [facility] CLIA [id number] [address] [place] [address] 97889 Nucleated RBC (Bld) [#/Vol] 10*3/uL Normal <0.01 [facility] Comment on above: Order Comment: Speci men Type: BLOOD SPECIMEN Ordering Facility: [facility] Address: [address] [place] [id number] Performed By: #### M PO #### [facility] CLIA [id number] [address] [place] [address]108 Platelet mean volume (Bld) [Entitic vol] 10.2 fL Normal 9.0-12.7 [facility] Comment on above: Order Comment: Speci men Type: BLOOD SPECIMEN Ordering Facility: [facility] Address: [address] [place] [address] Performed By: #### M PO #### [facility] CLIA [id number] [address] [place] [address] Platelets (Bld) [#/Vol] 250 10*3/uL Normal 150-400 [facility] Comment on above: Order Comment: Speci men Type: BLOOD SPECIMEN Ordering Facility: [facility] Address: [address] [place] [address] Performed By: #### M PO #### [facility] CLIA [id number] [address] [place] [address]22 RBC (Bld) [#/Vol] 4.29 10*6/uL Normal 4.20-6.00 [facility] Comment on above: Order Comment: Speci men Type: BLOOD SPECIMEN Ordering Facility: [facility] Address: [address] [place] [address] Performed By: #### M PO #### [facility] CLIA [id number] [address] [place] [address] 28765 WBC (Bld) [#/Vol] 5.83 10*3/uL Normal 3.70-11.00 [facility] Comment on above: Order Comment: Speci men Type: BLOOD SPECIMEN Ordering Facility: [facility] Address: [address], [place] [id number] Performed By: #### M PO #### [facility] CLIA [id number] [address] [facility] [address] [place], [place] [address] CONSULT PROGon 12-22-2023 CONSULT PROG HNO ID: [id number] Author: TITA LANDRY APRN.STEAM TUNNEL FEEDER Service: Thoracic Surgery Author Type: Nurse Practitioner Type: Consult Progress Note Filed: 12/22/2023 12:57 Note Text: [facility] THORACIC SURGERY CONSULT PROGRESS NOTE Sav Raymundo [id number] PRIMARY SERVICE: Internal Medicine HOSPITAL DAY: # [...] service, s/p R VATS pleural biopsy, right pbx mechanic and doxycycline pleurodesis, right Pleurx catheter insertion on 11/20/[address] Flood for recurrent right pleural effusion. Cytology revealed [...] Rheumatology input Case discussed with Dr. Remigio Landry APRN.STEAM TUNNEL FEEDER Pager [phone] 12/22/2023 12:17 PM [facility] Magnesium [facility] 12-21 Magnesium [Mass/Vol] 1.6 mg/dL Low 1.7-2.3 [facility] Comment on above: Order Comment: Speci men Type: BLOOD SPECIMEN Ordering Facility: [facility] Address: [address] [place] [address] Performed By: #### M PO #### [facility] CLIA [id number] [address] [place] [address] XR ABDOMEN 1V SUPINEon 12-21 XR ABDOMEN [...] report reviewed and electronically signed by: REGGIE PAMLER MD on Dec 23 2023 12:20AM EST [id number] [facility] 25([place])D3 [facility] 25-hydroxyvitamin D3 [Mass/Vol] 37.2 ng/mL Normal 31.0-80.0 [facility] Comment on above: Order Comment: Speci men Type: BLOOD SPECIMEN Ordering Facility: [facility] Address: [address] [place], [place] [address] Performed By: #### 1 1572-5 #### [facility] CLIA [id number] [address] [place] [address] [place] ALLIED HEALTHon 12-21-2023 ALLIED HEALTH HNO ID: [id number] Author: ISABEL STRINGER RT(R) Service: Radiology Author Type: Supervisor Dry Paste Type: Allied Health Filed: 12/21/2023 18:11 Note [...] PATIENT PRESENTS WITH AN IMPLANTABLE OR ATTACHED TELEVISION REPORTER: No RADIOLOGY DEPARTMENT: Ultrasound PERIPHERAL IV DATA: Not applicable SIGNED BY: RT Geri(R) December 21, 2023 6:11 PM Normal [facility] CBC panel Auto (Bld)on 12-20 Erythrocyte distribution width (RBC) [Ratio] 15.3 % High 11.5-15.0 [facility] Comment on above: Order Comment: Speci men Type: BLOOD SPECIMEN Ordering Facility: [facility] Address: [address] [place], [place] [address] Performed By: #### 1 1572-5 #### [facility] CLIA [id number] [address] [place] [address] [place] Hematocrit (Bld) [Volume fraction] 36.3 % Low 39.0-51.0 [facility] Comment on above: Order Comment: Speci men Type: BLOOD SPECIMEN Ordering Facility: [facility] Address: [address] [place] [address] Performed By: #### 1 1572-5 #### [facility] CLIA [id number] [address] [place] [address] [place] Hemoglobin (Bld) [Mass/Vol] 11.8 g/dL Low 13.0-17.0 [facility] Comment on above: Order Comment: Speci men Type: BLOOD SPECIMEN Ordering Facility: [facility] Address: [address] [place] [address] Performed By: #### 1 1572-5 #### [facility] CLIA [id number] [address] [place] [address] [place] MCH (RBC) [Entitic mass] 29.8 pg Normal 26.0-34.0 [facility] Comment on above: Order Comment: Speci men Type: BLOOD SPECIMEN Ordering Facility: [facility] Address: [address] [place] [address] Performed By: #### 1 157-5 #### [facility] CLIA [id number] [address] [place] [address] [place] MCHC (RBC) [Mass/Vol] 32.5 g/dL Normal 30.5-36.0 [facility] Comment on above: Order Comment: Speci men Type: BLOOD SPECIMEN Ordering Facility: [facility] Address: [address] [place] [address] Performed By: #### 1 157-5 #### [facility] CLIA [id number] [address] [place] [address] [place] MCV (RBC) [Entitic vol] 91.7 fL Normal 80.0-100.0 [facility] Comment on above: Order Comment: Speci men Type: BLOOD SPECIMEN Ordering Facility: [facility] Address: [address] [place] [address] Performed By: #### 1 1572-5 #### [facility] CLIA [id number] [address] [place] [address] [place] Nucleated RBC (Bld) [#/Vol] 10*3/uL Normal <0.01 [facility] Comment on above: Order Comment: Speci men Type: BLOOD SPECIMEN Ordering Facility: [facility] Address: [address] [place] [address] Performed By: #### 1 1572-5 #### [facility] CLIA [id number] [address] [place] [address] [place] Platelet mean volume (Bld) [Entitic vol] 10.0 fL Normal 9.0-12.7 [facility] Comment on above: Order Comment: Speci men Type: BLOOD SPECIMEN Ordering Facility: [facility] Address: [address] [place] [address] Performed By: #### 1 1572-5 #### [facility] CLIA [id number] [address] [place] [address] [place] Platelets (Bld) [#/Vol] 215 10*3/uL Normal 150-400 [facility] Comment on above: Order Comment: Speci men Type: BLOOD SPECIMEN Ordering Facility: [facility] Address: [address] [place] [address] Performed By: #### 1 1572-5 #### [facility] CLIA [id number] [address] [place] [address] [place] RBC (Bld) [#/Vol] 3.96 10*6/uL Low 4.20-6.00 [facility] Comment on above: Order Comment: Speci men Type: BLOOD SPECIMEN Ordering Facility: [facility] Address: [address] [place] [address] Performed By: #### 1 1572-5 #### [facility] CLIA [id number] [address] [place] [address] [place] WBC (Bld) [#/Vol] 6.12 10*3/uL Normal 3.70-11.00 [facility] Comment on above: Order Comment: Speci men Type: BLOOD SPECIMEN Ordering Facility: [facility] Address: [address] [place] [address] Performed By: #### 1 1572-5 #### [facility] CLIA [id number] [address] [place] [address] [place] [address] [place] CONSULTon 12-21-2023 CONSULT HNO ID: [id number] Author: RONALDO FLOOD MD, PhD Service: Thoracic Surgery Author Type: Physician Type: Consults Filed: 12/22/2023 10:17 Note Text: [facility] CONSULT NOTE Sav Raymundo [id number] Requesting Provider: Alpa Oliva CNP Cardiothoracic Physician: Ronaldo Flood MD Admit Date: 12/20/2023 LOS : 1 Chief Complaint: Recurrent Effusion HPI: Sav Raymundo is a 73 y/o male referred by Alpa Oliva CNP for an opinion regarding management of recurrent right pleural effusion. 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 biopsy, right pbx mechanic and doxycycline pleurodesis, right Pleurx catheter insertion on 11/20/[address] Flood for recurrent right pleural effusion. Cytology revealed [...] additional systems (more content not included)... Normal [facility] CRP SerPl-mCncon 12-21-2023 CRP [Mass/Vol] 1.8 mg/dL High <0.9 [facility] Comment on above: Order Comment: Alexandru campos Type: BLOOD SPECIMEN Ordering Facility: [facility] Address: [address] [place] [address] Performed By: #### 1 988-5, 77568-8 #### [facility] CLIA [id number] [address] [place] [address] [place] Comprehensive metabolic 2000 panelon 12-21-2023 Albumin [Mass/Vol] 3.4 g/dL Low 3.9-4.9 [facility] Comment on above: Order Comment: Alexandru campos Type: BLOOD SPECIMEN Ordering Facility: [facility] Address: [address] [place] [address] Performed By: #### 1 988-5, 77748-0 #### [facility] CLIA [id number] [address] [place] [address] [place] ALP [Catalytic activity/Vol] 100 U/L Normal 38-113 [facility] Comment on above: Order Comment: Alexandru campos Type: BLOOD SPECIMEN Ordering Facility: [facility] Address: [address] [place] [address] Performed By: #### 1 988-5, 43158-0 #### [facility] CLIA [id number] [address] [place] [address] [place] ALT [Catalytic activity/Vol] 11 U/L Normal 10-54 [facility] Comment on above: Order Comment: Speci men Type: BLOOD SPECIMEN Ordering Facility: [facility] Address: [address] [place] [address] Performed By: #### 1 988-5, #### [facility] CLIA [id number] [address] [place] [address] [place] Anion gap [Moles/Vol] 13 mmol/L Normal 8-15 [facility] Comment on above: Order Comment: Speci men Type: BLOOD SPECIMEN Ordering Facility: [facility] Address: [address] [place] [address] Performed By: #### 1 988-5, 38911-3 #### [facility] CLIA [id number] [address] [place] [address] [place] AST [Catalytic activity/Vol] 18 U/L Normal 14-40 [facility] Comment on above: Order Comment: Speci men Type: BLOOD SPECIMEN Ordering Facility: [facility] Address: [address] [place] [address] Performed By: #### 1 988-5, #### [facility] CLIA [id number] [address] [place] [address] [place] Bilirubin [Mass/Vol] 0.8 mg/dL Normal 0.2-1.3 [facility] Comment on above: Order Comment: Speci men Type: BLOOD SPECIMEN Ordering Facility: [facility] Address: [address] [place] [address] Performed By: #### 1 988-5, 30110-8 #### [facility] CLIA [id number] [address] [place] [address] [place] Calcium [Mass/Vol] 8.7 mg/dL Normal 8.5-10.2 [facility] Comment on above: Order Comment: Speci men Type: BLOOD SPECIMEN Ordering Facility: [facility] Address: [address] [place] [address] Performed By: #### 1 988-5, 26654-8 #### [facility] CLIA [id number] [address] [place] [address] [place] Chloride [Moles/Vol] 106 mmol/L Normal 98-107 [facility] Comment on above: Order Comment: Speci men Type: BLOOD SPECIMEN Ordering Facility: [facility] Address: [address] [place] [address] Performed By: #### 1 988-5, 80058-7 #### [facility] CLIA [id number] [address] [place] [address] [place] CO2 [Moles/Vol] 19 mmol/L Low 22-30 [facility] Comment on above: Order Comment: Speci men Type: BLOOD SPECIMEN Ordering Facility: [facility] Address: [address] [place] [address] Performed By: #### 1 988-5, 40831-3 #### [facility] CLIA [id number] [address] [place] [address] [place] Creatinine [Mass/Vol] 0.86 mg/dL Normal 0.73-1.22 [facility] Comment on above: Order Comment: Speci men Type: BLOOD SPECIMEN Ordering Facility: [facility] Address: [address] [place] [address] Performed By: #### 1 988-5, 39992-5 #### [facility] CLIA [id number] [address] [place] [address] [place] Creatinine and Glomerular filtration rate.predicted panel (S/P/Bld) 92 mL/min/1.73m??? Normal >=60 [facility] Comment on above: Order Comment: Speci men Type: BLOOD SPECIMEN Ordering Facility: [facility] Address: [address] [place] [address] Result Comment: Kristel mated Glomerular Filtration Rate [...] actual GFR. Performed By: #### 1 988-5, 21322-6 #### [facility] CLIA [id number] [address] [place] [address] [place] Glucose [Mass/Vol] 115 mg/dL High 74-99 [facility] Comment on above: Order Comment: Alexandru campos Type: BLOOD SPECIMEN Ordering Facility: [facility] Address: [address] [place] [address] Result Comment: The [place] Diabetes Association (ADA) provides guidance for cutoff [...] Standards of Medical Care in Diabetes 2016, [place] Diabetes Association. Diabetes Care. 2016.39(Suppl 1). Performed By: #### 1 988-5, 46951-2 #### [facility] CLIA [id number] [address] [place] [address] [place] Potassium [Moles/Vol] 3.9 mmol/L Normal 3.7-5.1 [facility] Comment on above: Order Comment: Alexandru campos Type: BLOOD SPECIMEN Ordering Facility: [facility] Address: [address] [place] [address] Performed By: #### 1 988-5, 45566-5 #### [facility] CLIA [id number] [address] [place] [address] [place] Protein [Mass/Vol] 6.4 g/dL Normal 6.3-8.0 [facility] Comment on above: Order Comment: Speci men Type: BLOOD SPECIMEN Ordering Facility: [facility] Address: [address] [place] [address] Performed By: #### 1 988-5, 26198-1 #### [facility] CLIA [id number] [address] [place] [address] [place] Sodium [Moles/Vol] 138 mmol/L Normal 136-144 [facility] Comment on above: Order Comment: Speci men Type: BLOOD SPECIMEN Ordering Facility: [facility] Address: [address] [place] [address] Performed By: #### 1 988-5, 64413-6 #### [facility] CLIA [id number] [address] [place] [address] [place] Urea nitrogen [Mass/Vol] 12 mg/dL Normal 9-24 [facility] Comment on above: Order Comment: Speci men Type: BLOOD SPECIMEN Ordering Facility: [facility] Address: [address] [place] [address] Performed By: #### 1 988-5, 96839-0 #### [facility] CLIA [id number] [address] [place] [address] [place] Cyclic citrullinated peptide IgG Qnon 12-21-2023 [facility] ANTIBODY IGG QUALITATIVE Negative Normal Negative [facility] Comment on above: Order Comment: Speci men Type: BLOOD SPECIMEN Ordering Facility: [facility] Address: [address] [place] [address] Performed By: #### 1 1572-5 #### [facility] CLIA [id number] [address] [facility] [id number] [address] [place] ESR Westergren method (Bld) [Velocity]on 12-21-2023 ESR (Bld) [Velocity] 33 mm/h High 0-15 [facility] Comment on above: Order Comment: Speci men Type: BLOOD SPECIMEN Ordering Facility: [facility] Address: [address] [place] [address] Performed By: #### M PO #### [facility] CLIA [id number] [address] [address] HISTORY PHYSICALon HISTORY PHYSICAL HNO ID: [id number] Author: JOSE ANTONIO HOPPER MD Service: Family Practice Author Type: Physician [...] file) Recurrent (more content not included)... Normal [facility] Nuclear Ab IA Ql (S)on 12-20 GREY SCR QUAL Negative Normal Negative [facility] Comment on above: Order Comment: Specsyl campos Type: BLOOD SPECIMEN Ordering Facility: [facility] Address: [address] [place] [address] Result Comment: The qualitative antinuclear antibody screen test performed using the following antigens: dsDNA, Chromatin, Ribosomal P, SS-A 60, SS-A 52, SS-B, Sm, SmRNP, BOXING AND PRESSING SUPERVISOR A, BOXING AND PRESSING SUPERVISOR 68, Scl-70, Alice-1, and Centromere B. Methodology: Multiplex flow immunoassay. Performed By: #### 1 1572-5 #### [facility] CLIA [id number] [address] [place] [address] [place] PROTEINASE 3 ANTIBODYon Proteinase 3 Ab Qn (S) <0.2 Normal <1.0 [facility] Comment on above: Order Comment: Alexandru campos Type: BLOOD SPECIMEN Ordering Facility: [facility] Address: [address] [place] [address] Performed By: #### 1 1572-5 #### [facility] CLIA [id number] [address] [place] [address] [place] Rheumatoid fact SerPl-aCncon 12-21-2023 Rheumatoid factor Qn [IU]/mL Normal <16 [facility] Comment on above: Order Comment: Speci men Type: BLOOD SPECIMEN Ordering Facility: [facility] Address: [address] [place] [address] Performed By: #### 1 1572-5 #### [facility] CLIA [id number] [address] [place] [address] [id number] [id number] [place] US ABD RIGHT UPPER QUADRANTo n 12-21-2023 US ABD RIGHT UPPER QUADRANT * * *Final Report* * * DATE OF EXAM: Dec 21 2023 6:09PM [facility] - US ABD RIGHT UPPER QUADRANT [...] Dec 22 2023 3:17PM EST [id number] Normal [facility] XR Chest PA and Lateralon IMPRESSION: Stable exam with a persistent right pleural effusion. Transcribed Using Voice Recognition Transcribe Date/Time: Dec 21 2023 10:02A Dictated by: JEFFREY KRUEGER MD This examination was interpreted and the report reviewed and electronically signed by: JEFFREY KRUEGER MD on Dec 21 2023 10:03AM EST [facility] * * *Final Report* * [...] cardiomediastinal silhouette. Bones and soft tissues: Unremarkable. [facility] Provider, [facility] - 12/21/2023 * * *Final Report* * [...] MD on Dec 21 2023 10:03AM EST [facility] XR Chest PA and LateralOrder ed By: Ccf Provider on 12-21-2023 [facility] cCP IgG SerPl-aCncon 024 Cyclic citrullinated peptide IgG Qn <15 Normal <20 [facility] Comment on above: Order Comment: Speci men Type: BLOOD SPECIMEN Ordering Facility: [facility] Address: [address] [place] [address] Performed By: #### 1 1572-5 #### [facility] CLIA [id number] [address] [place] [address] OF [facility] ALLIED HEALTHon 12-20-2023 ALLIED HEALTH HNO ID: [id number] Author: AMNA MASSEY RT(R) Service: ? Author [...] PATIENT PRESENTS WITH AN IMPLANTABLE OR ATTACHED TELEVISION REPORTER: No ALLERGIES: Reviewed and unchanged CONTRAST ALLERGY: [...] PERIPHERAL IV DATA: Inpatient - refer to LDA documentation RADIOLOGY DEPARTMENT: CT; Exam(s) Completed: Abdomen/Pelvis SIGNATURE: RT Arely(R) PATIENT NAME: Sav Raymundo DATE: December 20, 2023 TIME: 5:06 PM [facility] ALLIED HEALTH HNO ID: [id number] Author: OBI HAAS Tech Service: Radiology Author Type: Cytology Manager Type: Allied Health Filed: 12/20/2023 15:12 Note [...] PATIENT PRESENTS WITH AN IMPLANTABLE OR ATTACHED TELEVISION REPORTER: No RADIOLOGY DEPARTMENT: General X-ray: Exam(s) Completed: Chest X-Ray PERIPHERAL IV DATA: Not applicable SIGNED BY: Levy Castanon December 20, 2023 3:12 PM [facility] CBC W Auto Differential pane l (Bld)on 12-20-2023 Basophils (Bld) [#/Vol] 0.05 10*3/uL Normal <0.11 [facility] Comment on above: Order Comment: Speci men Type: BLOOD SPECIMEN Ordering Facility: [facility] Address: [address] [place] [address] Performed By: #### M PO #### [facility] CLIA [id number] [address] [place] [address] 33836 Basophils/100 WBC (Bld) 0.7 % Normal [facility] Comment on above: Order Comment: Speci men Type: BLOOD SPECIMEN Ordering Facility: [facility] Address: [address] [place] [address] Performed By: #### M PO #### [facility] CLIA [id number] [address] [place] [address] 12646 Differential cell count method Nom (Bld) Auto Normal [facility] Comment on above: Order Comment: Speci men Type: BLOOD SPECIMEN Ordering Facility: [facility] Address: [address] [place] [address] Performed By: #### M PO #### [facility] CLIA [id number] [address] [place] [address] Eosinophils (Bld) [#/Vol] 0.20 10*3/uL Normal <0.46 [facility] Comment on above: Order Comment: Speci men Type: BLOOD SPECIMEN Ordering Facility: [facility] Address: [address] [place] [address] Performed By: #### M PO #### [facility] CLIA [id number] [address] [place], [place] [address] Eosinophils/100 WBC (Bld) 2.9 % Normal [facility] Comment on above: Order Comment: Speci men Type: BLOOD SPECIMEN Ordering Facility: [facility] Address: [address] [place] [address] Performed By: #### M PO #### [facility] CLIA [id number] [address] [place], [place] [address] Erythrocyte distribution width (RBC) [Ratio] 15.3 % High 11.5-15.0 [facility] Comment on above: Order Comment: Speci men Type: BLOOD SPECIMEN Ordering Facility: [facility] Address: [address] [place] [address] Performed By: #### M PO #### [facility] CLIA [id number] [address] [place], [place] [address] Hematocrit (Bld) [Volume fraction] 39.8 % Normal 39.0-51.0 [facility] Comment on above: Order Comment: Speci men Type: BLOOD SPECIMEN Ordering Facility: [facility] Address: [address] [place] [address] Performed By: #### M PO #### [facility] CLIA [id number] [address] [place] [address] 84830 Hemoglobin (Bld) [Mass/Vol] 12.7 g/dL Low 13.0-17.0 [facility] Comment on above: Order Comment: Speci men Type: BLOOD SPECIMEN Ordering Facility: [facility] Address: [address] [place] [address] Performed By: #### M PO #### [facility] CLIA [id number] [address] [place] [address] 76082 Immature granulocytes (Bld) [#/Vol] 0.05 10*3/uL Normal <0.10 [facility] Comment on above: Order Comment: Speci men Type: BLOOD SPECIMEN Ordering Facility: [facility] Address: [address] [place] [address] Performed By: #### M PO #### [facility] CLIA [id number] [address] [place] [address] 40145 Immature granulocytes/100 WBC (Bld) 0.7 % Normal [facility] Comment on above: Order Comment: Speci men Type: BLOOD SPECIMEN Ordering Facility: [facility] Address: [address] [place] [address] Performed By: #### M PO #### [facility] CLIA [id number] [address] [place] [address] 80001 Lymphocytes (Bld) [#/Vol] 1.26 10*3/uL Normal 1.00-4.00 [facility] Comment on above: Order Comment: Speci men Type: BLOOD SPECIMEN Ordering Facility: [facility] Address: [address] [place] [address] Performed By: #### M PO #### [facility] CLIA [id number] [address] [place] [address] 30071 Lymphocytes/100 WBC (Bld) 18.0 % Normal [facility] Comment on above: Order Comment: Speci men Type: BLOOD SPECIMEN Ordering Facility: [facility] Address: [address] [place] [address] Performed By: #### M PO #### [facility] CLIA [id number] [address] [place] [address] 28012 MCH (RBC) [Entitic mass] 29.9 pg Normal 26.0-34.0 [facility] Comment on above: Order Comment: Speci men Type: BLOOD SPECIMEN Ordering Facility: [facility] Address: [address] [place] [address] Performed By: #### M PO #### [facility] CLIA [id number] [address] [place] [address] 74908 MCHC (RBC) [Mass/Vol] 31.9 g/dL Normal 30.5-36.0 [facility] Comment on above: Order Comment: Speci men Type: BLOOD SPECIMEN Ordering Facility: [facility] Address: [address] [place] [address] Performed By: #### M PO #### [facility] CLIA [id number] [address] [place], [place] [address] MCV (RBC) [Entitic vol] 93.6 fL Normal 80.0-100.0 [facility] Comment on above: Order Comment: Speci men Type: BLOOD SPECIMEN Ordering Facility: [facility] Address: [address] [place] [address] Performed By: #### M PO #### [facility] CLIA [id number] [address] [place], [place] [address] Monocytes (Bld) [#/Vol] 0.66 10*3/uL Normal <0.87 [facility] Comment on above: Order Comment: Speci men Type: BLOOD SPECIMEN Ordering Facility: [facility] Address: [address] [place] [address] Performed By: #### M PO #### [facility] CLIA [id number] [address] [place], [place] [address] Monocytes/100 WBC (Bld) 9.4 % Normal [facility] Comment on above: Order Comment: Speci men Type: BLOOD SPECIMEN Ordering Facility: [facility] Address: [address] [place] [address] Performed By: #### M PO #### [facility] CLIA [id number] [address] [place] [address] 59468 Neutrophils (Bld) [#/Vol] 4.78 10*3/uL Normal 1.45-7.50 [facility] Comment on above: Order Comment: Speci men Type: BLOOD SPECIMEN Ordering Facility: [facility] Address: [address] [place] [id number] Performed By: #### M PO #### [facility] CLIA [id number] [address] [place] [address] 71789 Neutrophils/100 WBC (Bld) 68.3 % Normal [facility] Comment on above: Order Comment: Speci men Type: BLOOD SPECIMEN Ordering Facility: [facility] Address: [address] [place] [address] Performed By: #### M PO #### [facility] CLIA [id number] [address] [place] [address] 91035 Nucleated RBC (Bld) [#/Vol] 10*3/uL Normal <0.01 [facility] Comment on above: Order Comment: Speci men Type: BLOOD SPECIMEN Ordering Facility: [facility] Address: [address] [place] [place] [id number] Performed By: #### M PO #### [facility] CLIA [id number] [address] [place] [address] 87859 Nucleated RBC/100 WBC (Bld) [Ratio] 0.0 /100 WBC Normal [facility] Comment on above: Order Comment: Speci men Type: BLOOD SPECIMEN Ordering Facility: [facility] Address: [address] [place] [address] Performed By: #### M PO #### [facility] CLIA [id number] [address] [place] [address] 15015 Platelet mean volume (Bld) [Entitic vol] 10.1 fL Normal 9.0-12.7 [facility] Comment on above: Order Comment: Speci men Type: BLOOD SPECIMEN Ordering Facility: [facility] Address: [address] [place] [address] Performed By: #### M PO #### [facility] CLIA [id number] [address] [place] [address]2742 Platelets (Bld) [#/Vol] 229 10*3/uL Normal 150-400 [facility] Comment on above: Order Comment: Speci men Type: BLOOD SPECIMEN Ordering Facility: [facility] Address: [address] [place] [address] Performed By: #### M PO #### [facility] CLIA [id number] [address] [place] [address] 62304 RBC (Bld) [#/Vol] 4.25 10*6/uL Normal 4.20-6.00 [facility] Comment on above: Order Comment: Speci men Type: BLOOD SPECIMEN Ordering Facility: [facility] Address: [address] [place], [place] [address] Performed By: #### M PO #### [facility] CLIA [id number] [address] [place] [address] 61823 WBC (Bld) [#/Vol] 7.00 10*3/uL Normal 3.70-11.00 [facility] Comment on above: Order Comment: Speci men Type: BLOOD SPECIMEN Ordering Facility: [facility] Address: [address] [place] [address] Performed By: #### M PO #### [facility] CLIA [id number] [address] [place] [address] 77323 INÉSOVon 12-20-2023 CNOV Office Visit ([facility] ) -- SAV RAYMUNDO ([id number]) 1950 M Date Time Provider Department 12/20/23 2:00 PM TITA LANDRY During your visit today, we recorded the following information about you: Temperature Respiration Weight Height 97.3 degrees 18/minute 104.8 kg 1.829 m Tita Landry APRN.[employer] 01/19/2024 9:56 PM Signed [facility] DEPARTMENT OF THORACIC SURGERY OUTPATIENT VISIT DATE December 20, 2023 OUTPATIENT VISIT TYPE ESTABLISHED PT NAME: Sav Raymundo CLINIC NO: [id number] THORACIC SURGEON: Ronaldo Flood M.D. DATE OF SERVICE: 12/20/2023 PRINCIPAL DX: Pleural Effusion SURGICAL HX 11/20/2023: R VATS pleural biopsy, right pbx mechanic and doxycycline pleurodesis, right Pleurx catheter insertion, right 20Fr chest tube insertion Surgical Pathology 11/20/2023: FINAL DIAGNOSIS A. Right pleura, biopsy: - Chronic pleuritis with mesothelial hyperplasia (see comment). B. Right pleura, biopsy: - Acute organizing and chronic pleuritis (see comment). DE/ 11/22/2023 Diagnosis Comment A. The biopsy contains [...] reactive proliferation. Drs. Della Subramanian and Zeus Sandy have also reviewed this case and agree [...] surgery. Note (more content not included)... Normal [facility] CT ABD/PEL W IVCONon 07-05-[address] ABD/PEL W IVCON * * *Final Report* * * DATE OF EXAM: Dec 20 2023 5:12PM [facility] 0530 - CT ABD/PEL W [...] Dec 20 2023 5:40PM EST [id number] Normal [facility] Cholest SerPl-ncon 024 Cholesterol [Mass/Vol] 106 mg/dL Normal <200 [facility] Comment on above: Order Comment: Speci men Type: BLOOD SPECIMEN Ordering Facility: [facility] Address: [address] [place] [address] Result Comment: <200 mg/dL, Desirable 200-239 mg/dL, Borderline high >239 mg/dL, High Reference: 1. National Cholesterol Education Program ATP III Guideline At-A-Glance Quick Desk Reference: National Heart, Lung, and Blood [place]. National Institutes of Health. 2001: NIH Publication No. 01-3305. Performed By: #### 1 1572-5 #### [facility] CLIA [id number] [address] [place] [address] [place] Comprehensive metabolic 2000 panelon 12-20-2023 Albumin [Mass/Vol] 4.0 g/dL Normal 3.9-4.9 [facility] Comment on above: Order Comment: Speci men Type: BLOOD SPECIMEN Ordering Facility: [facility] Address: [address] [place] [address] Performed By: #### 1 988-5, 83948-7 #### [facility] CLIA [id number] [address] [place] [address] [place] ALP [Catalytic activity/Vol] 110 U/L Normal 38-113 [facility] Comment on above: Order Comment: Speci men Type: BLOOD SPECIMEN Ordering Facility: [facility] Address: [address] [place] [address] Performed By: #### 1 988-5, 93791-1 #### [facility] CLIA [id number] [address] [place] [address] [place] ALT [Catalytic activity/Vol] 13 U/L Normal 10-54 [facility] Comment on above: Order Comment: Speci men Type: BLOOD SPECIMEN Ordering Facility: [facility] Address: [address] [place] [id number] Performed By: #### 1 988-5, 62616-0 #### [facility] CLIA [id number] [address] [place] [address] [place] Anion gap [Moles/Vol] 12 mmol/L Normal 8-15 [facility] Comment on above: Order Comment: Speci men Type: BLOOD SPECIMEN Ordering Facility: [facility] Address: [address] [place] [address] Performed By: #### 1 988-5, #### [facility] CLIA [id number] [address] [place] [address] [place] AST [Catalytic activity/Vol] 20 U/L Normal 14-40 [facility] Comment on above: Order Comment: Speci men Type: BLOOD SPECIMEN Ordering Facility: [facility] Address: [address] [place] [address] Performed By: #### 1 988-5, #### [facility] CLIA [id number] [address] [place] [address] [place] Bilirubin [Mass/Vol] 0.6 mg/dL Normal 0.2-1.3 [facility] Comment on above: Order Comment: Speci men Type: BLOOD SPECIMEN Ordering Facility: [facility] Address: [address] [place] [address] Performed By: #### 1 988-5, #### [facility] CLIA [id number] [address] [place] [address] [place] Calcium [Mass/Vol] 9.1 mg/dL Normal 8.5-10.2 [facility] Comment on above: Order Comment: Speci men Type: BLOOD SPECIMEN Ordering Facility: [facility] Address: [address] [place] [address] Performed By: #### 1 988-5, #### [facility] CLIA [id number] [address] [place] [address] [place] Chloride [Moles/Vol] 105 mmol/L Normal 98-107 [facility] Comment on above: Order Comment: Speci men Type: BLOOD SPECIMEN Ordering Facility: [facility] Address: [address] [place] [address] Performed By: #### 1 988-5, 59092-9 #### [facility] CLIA [id number] [address] [place] [address] [place] CO2 [Moles/Vol] 20 mmol/L Low 22-30 [facility] Comment on above: Order Comment: Speci men Type: BLOOD SPECIMEN Ordering Facility: [facility] Address: [address] [place] [address] Performed By: #### 1 988-5, 88391-1 #### [facility] CLIA [id number] [address] [place] [address] [place] Creatinine [Mass/Vol] 1.07 mg/dL Normal 0.73-1.22 [facility] Comment on above: Order Comment: Antonellai men Type: BLOOD SPECIMEN Ordering Facility: [facility] Address: [address] [place] [address] Performed By: #### 1 988-5, 96896-6 #### [facility] CLIA [id number] [address] [place] [address] STATES [facility] Creatinine and Glomerular filtration rate.predicted panel (S/P/Bld) 74 mL/min/1.73m??? Normal >=60 [facility] Comment on above: Order Comment: Speci men Type: BLOOD SPECIMEN Ordering Facility: [facility] Address: [address] [place] [address] Result Comment: Kristel mated Glomerular Filtration Rate [...] actual GFR. Performed By: #### 1 988-5, 73269-0 #### [facility] CLIA [id number] [address] [place] [address] [place] Glucose [Mass/Vol] 111 mg/dL High 74-99 [facility] Comment on above: Order Comment: Alexandru campos Type: BLOOD SPECIMEN Ordering Facility: [facility] Address: [address] [place] [address] Result Comment: The [place] Diabetes Association (ADA) provides guidance for cutoff [...] Standards of Medical Care in Diabetes 2016, [place] Diabetes Association. Diabetes Care. 2016.39(Suppl 1). Performed By: #### 1 988-5, 05464-9 #### [facility] CLIA [id number] [address] [place] [address] [place] Protein [Mass/Vol] 6.9 g/dL Normal 6.3-8.0 [facility] Comment on above: Order Comment: Alexandru campos Type: BLOOD SPECIMEN Ordering Facility: [facility] Address: [address] [place] [address] Performed By: #### 1 988-5, 68121-1 #### [facility] CLIA [id number] [address] [place] [address] [place] Sodium [Moles/Vol] 137 mmol/L Normal 136-144 [facility] Comment on above: Order Comment: Alexandru campos Type: BLOOD SPECIMEN Ordering Facility: [facility] Address: [address] [place] [address] Performed By: #### 1 988-5, 23323-9 #### [facility] CLIA [id number] [address] [place] [address] [place] Urea nitrogen [Mass/Vol] 15 mg/dL Normal 9-24 [facility] Comment on above: Order Comment: Speci men Type: BLOOD SPECIMEN Ordering Facility: [facility] Address: [facility] [place] [address] Performed By: #### 1 988-5, 17659-8 #### [facility] CLIA [id number] [address] ECG COMPLETEon 12-20-2023 ECG COMPLETE Ventricular Rate : 8 3 BPM Atrial Rate : 83 BPM P-R Interval : 184 ms QRS Duration : 80 ms Q-T Interval : 348 ms QTC Calculation(Bazett) : 408 ms Calculated P Lake : 78 degrees Calculated R Lake : 3 degrees Calculated T Lake : 230 degrees POOR DATA QUALITY, INTERPRETATION MAY BE ADVERSELY AFFECTED NORMAL SINUS RHYTHM NONSPECIFIC T WAVE ABNORMALITY ABNORMAL ECG NO PREVIOUS ECGS AVAILABLE NO STEMI CONFIRMED 2057 Confirmed by MERLYN HALL MD ([id number]), newspaper editor managing ROLANDO SPAULDING ([id number]) on 12/21/2023 8:32:15 AM NAME : SAV RAYMUNDO PID : [id number] : 1950 Gender : Male Race : ORD : [id number] Procedure Date : Dec 20 2023 19:12:11 Edit Date : Dec 21 2023 08:32:16 Diagnosis: POOR DATA QUALITY, INTERPRETATION MAY BE ADVERSELY AFFECTED NORMAL SINUS RHYTHM NONSPECIFIC T WAVE ABNORMALITY ABNORMAL ECG NO PREVIOUS ECGS AVAILABLE NO STEMI CONFIRMED 2057 Confirmed by MERLYN HALL MD ([id number]), newspaper editor managing ROLANDO SPAULDING ([id number]) on 12/21/2023 8:32:15 AM Test Reason : Chest Pain Location : 26 : ER L ED Overread By : MERLYN HALL MD Edited By : ROLANDO SPAULDING Referred By : , Acquired by : , [facility] ED NOTEon 12-20-2023 ED NOTE HNO ID: [id number] Author: CHARLIE GRANGER RN Service: ? Author Type: Registered Nurse Type: ED Notes Filed: 12/20/2023 18:48 Note Text: Bed: ED-25 Expected date: Expected time: Means of arrival: Comments: triage [facility] ED NOTE HNO ID: [id number] Author: KEVIN HINSON RN Service: ? Author Type: Registered Nurse Type: ED Notes Filed: 12/20/2023 14:59 Note Text: Pt arrives to ED from appointment. Pt reported had l pleural effusion done today. Reportedly gets drained multiple times per week. Pt has had incread n/v/d x1 week. Abdominal area is distended according to PROOF PASSER. Pt is AANDOx3 and ambulatory Normal [facility] ED PROV NOTEon 12-20-2023 ED PROV NOTE HNO ID: [id number] Author: MERLYN HALL DO Service: Emergency Medicine [...] High Sen (more content not included)... Normal [facility] ED Triage Noteon 12-20-2023 ED Triage Note HNO ID: [id number] Author: RAFAELA BATISTA MD Service: Emergency Medicine [...] ECG COMPLETE SIGNATURE: Rafaela Batista MD Normal [facility] Gas + CO Pnl BldVon 12-20-19 24 Potassium [Moles/Vol] 4.6 mmol/L Normal 3.7-5.1 [facility] Comment on above: Order Comment: Speci men Type: BLOOD SPECIMEN Ordering Facility: [facility] Address: [address] [place] [address] Performed By: #### M PO #### [facility] CLIA [id number] [address] [place] [address] Performed By: #### 1 988-5, 42456-5 #### [facility] CLIA [id number] [address] [place] [id number] [place] Gas and Carbon monoxide pane l (BldV)on 12-20-2023 BASE DEFICIT, VENOUS -2 mmol/L Normal -2-0 [facility] Comment on above: Order Comment: Speci men Type: BLOOD SPECIMEN Ordering Facility: [facility] Address: [address] [place] [address] Performed By: #### M PO #### [facility] CLIA [id number] [address] [place] [address] Body temperature 98.6 [degF] Normal [facility] Comment on above: Order Comment: Speci men Type: BLOOD SPECIMEN Ordering Facility: [facility] Address: [address] [place] [address] Performed By: #### M PO #### [facility] CLIA [id number] [address] [place] [address] Calcium.ionized (Bld) [Mass/Vol] 1.22 mmol/L Normal 1.08-1.30 [facility] Comment on above: Order Comment: Speci men Type: BLOOD SPECIMEN Ordering Facility: [facility] Address: [address] [place] [address] Performed By: #### M PO #### [facility] CLIA [id number] [address] [place] [address] Carboxyhemoglobin (BldV) [Mass fraction] <1.0 Normal 0.0-2.0 [facility] Comment on above: Order Comment: Speci men Type: BLOOD SPECIMEN Ordering Facility: [facility] Address: [address] [place] [address] Result Comment: Carb oxyhemoglobin Reference Range for Smokers: 2.0-8.0% Performed By: #### M PO #### [facility] CLIA [id number] [address], [place] [address] Chloride [Moles/Vol] 111 mmol/L High 97-105 [facility] Comment on above: Order Comment: Speci men Type: BLOOD SPECIMEN Ordering Facility: [facility] Address: [address] [place], [place] [id number] Performed By: #### M PO #### [facility] CLIA [id number] [address] [place] [address] CO2 (BldV) [Partial pressure] 44 mm[Hg] Normal 42-55 [facility] Comment on above: Order Comment: Speci men Type: BLOOD SPECIMEN Ordering Facility: [facility] Address: [address] [place] [address] Performed By: #### M PO #### [facility] CLIA [id number] [address] [place], [place] [address] Glucose [Mass/Vol] 112 mg/dL High 60-105 [facility] Comment on above: Order Comment: Speci men Type: BLOOD SPECIMEN Ordering Facility: [facility] Address: [address] [place] [address] Performed By: #### M PO #### [facility] CLIA [id number] [address] [place], [place] [address] HCO3 (Bld) [Moles/Vol] 23 mmol/L Low 24-28 [facility] Comment on above: Order Comment: Speci men Type: BLOOD SPECIMEN Ordering Facility: [facility] Address: [address] [place] [address] Performed By: #### M PO #### [facility] CLIA [id number] [address] [place] [address] Hematocrit (Bld) [Volume fraction] 39.6 % Normal 39.0-51.0 [facility] Comment on above: Order Comment: Speci men Type: BLOOD SPECIMEN Ordering Facility: [facility] Address: [address] [place] [address] Performed By: #### M PO #### [facility] CLIA [id number] [address] [place] [address] 38649 Hemoglobin (Bld) [Mass/Vol] 12.9 g/dL Low 13.0-17.0 [facility] Comment on above: Order Comment: Speci men Type: BLOOD SPECIMEN Ordering Facility: [facility] Address: [address] [place] [address] Performed By: #### M PO #### [facility] CLIA [id number] [address] [place] [address] 99591 Lactate [Moles/Vol] 0.9 mmol/L Normal 0.5-2.2 [facility] Comment on above: Order Comment: Speci men Type: BLOOD SPECIMEN Ordering Facility: [facility] Address: [address] [place] [address] Performed By: #### M PO #### [facility] CLIA [id number] [address] [place] [address] 96809 Methemoglobin (Bld) [Mass fraction] % Normal 0.0-1.5 [facility] Comment on above: Order Comment: Speci men Type: BLOOD SPECIMEN Ordering Facility: [facility] Address: [address] [place] [address] Performed By: #### M PO #### [facility] CLIA [id number] [address] [place] [address] 82880 O2 THERAPY RA=Room Air Normal [facility] Comment on above: Order Comment: Speci men Type: BLOOD SPECIMEN Ordering Facility: [facility] Address: [address] [place] [address] 6[address] Performed By: #### M PO #### [facility] CLIA [id number] [address] [place] [address] 23445 Oxygen (BldV) [Partial pressure] mm[Hg] Low 35-45 [facility] Comment on above: Order Comment: Speci men Type: BLOOD SPECIMEN Ordering Facility: [facility] Address: [address] [place] [address] Performed By: #### M PO #### [facility] CLIA [id number] [address] [place] [address] 02819 Oxygen saturation in Venous blood 30 % Low 60-85 [facility] Comment on above: Order Comment: Speci men Type: BLOOD SPECIMEN Ordering Facility: [facility] Address: [address] [place] [address] Performed By: #### M PO #### [facility] CLIA [id number] [address] [place] [address] 44844 Oxyhemoglobin (BldV) [Mass fraction] 29 % Low 60-85 [facility] Comment on above: Order Comment: Speci men Type: BLOOD SPECIMEN Ordering Facility: [facility] Address: [address] [facility] [place] [id number] Performed By: #### M PO #### [facility] CLIA [id number] [address] [place], [place] [address] pH (BldV) 7.34 [pH] Normal 7.32-7.42 [facility] Comment on above: Order Comment: Speci men Type: BLOOD SPECIMEN Ordering Facility: [facility] Address: [address] [facility] [place] [id number] Performed By: #### M PO #### [facility] CLIA [id number] [address] [place] [address] 33179 Sodium [Moles/Vol] 138 mmol/L Normal 136-144 [facility] Comment on above: Order Comment: Speci men Type: BLOOD SPECIMEN Ordering Facility: [facility] Address: [address] [place] [address] Performed By: #### M PO #### [facility] CLIA [id number] [address] [place] [address] 25686 HIGH SENSITIVITY TROPONIN T (INITIAL)on 12-20-2023 Troponin T.cardiac High sensitivity method [Mass/Vol] 13 ng/L High <12 [facility] Comment on above: Order Comment: Speci men Type: BLOOD SPECIMEN Ordering Facility: [facility] Address: [address] [place] [id number] Performed By: #### 1 988-5, 51029-8 #### [facility] CLIA [id number] [address] [place] [address] [place] HIGH SENSITIVITY TROPONIN T (SECOND)on 12-20-2023 Troponin T.cardiac High sensitivity method [Mass/Vol] 12 ng/L High <12 [facility] Comment on above: Order Comment: Alexandru campos Type: BLOOD SPECIMEN Ordering Facility: [facility] Address: [address] [place] [address] Performed By: #### 1 988-5, 19137-7 #### [facility] CLIA [id number] [address] [place] HIGH SENSITIVITY TROPONIN T (THIRD) 3 HRS AFTER INITIALon 12-20-2023 Troponin T.cardiac High sensitivity method [Mass/Vol] 11 ng/L Normal <12 [facility] Comment on above: Order Comment: Alexandru campos Type: BLOOD SPECIMEN Ordering Facility: [facility] Address: [address] [place] [address] Performed By: #### 1 1572-5 #### [facility] CLIA [id number] [address] [place] [address] [id number] [place] [address] OF [facility] HISTORY PHYSICALon 4 HISTORY PHYSICAL HNO ID: [id number] Author: ALPA OLIVA APRN.CNP Service: General Internal Medicine Author Type: Nurse [...] for malaise, (more content not included)... Normal [facility] Lipase SerPl-cCncon 12-20-19 24 Lipase [Catalytic activity/Vol] 40 U/L Normal 16-61 [facility] Comment on above: Order Comment: Speci men Type: BLOOD SPECIMEN Ordering Facility: [facility] Address: [address] [place] [address] Performed By: #### 1 988-5, 64332-7 #### [facility] CLIA [id number] [address] [place], [place] [address] [place] Magnesium SerPl-mCncon 12-19 Magnesium [Mass/Vol] 2.1 mg/dL Normal 1.7-2.3 [facility] Comment on above: Order Comment: Speci men Type: BLOOD SPECIMEN Ordering Facility: [facility] Address: [address] [place] [address] Performed By: #### 1 988-5, 04338-7 #### [facility] CLIA [id number] [address] [place] [address] [place] NT-proBNP SerPl-mCncon 12-19 Natriuretic peptide.B prohormone N-Terminal [Mass/Vol] 464 pg/mL High <125 [facility] Comment on above: Order Comment: Speci men Type: BLOOD SPECIMEN Ordering Facility: [facility] Address: [address] [place] [address] Performed By: #### 1 988-5, 95248-4 #### [facility] IA [id number] [address] [place] [address] [place] Trigl SerPl-mCncon Triglyceride [Mass/Vol] 86 mg/dL Normal <150 [facility] Comment on above: Order Comment: Speci men Type: BLOOD SPECIMEN Ordering Facility: [facility] Address: [address] [place] [address] Result Comment: <150 mg/dL, Normal 150-199 mg/dL, Borderline high 200-499 mg/dL, High >499 mg/dL, Very high Reference: 1. National Cholesterol Education Program ATP III Guideline At-A-Glance Quick Desk Reference: National Heart, Lung, and Blood [place]. National Institutes of Health. 2001: NIH Publication No. 01-3305. Performed By: #### 1 1572-5 #### [facility] CLIA [id number] [address] [place], [place] [address] [address] [place] Triglyceride [Mass/Vol]on FASTING TIME Unknown\X09\ Normal [facility] Comment on above: Order Comment: Speci men Type: BLOOD SPECIMEN Ordering Facility: [facility] Address: [address] [place] [address] Performed By: #### 1 1572-5 #### [facility] CLIA [id number] [address] [place] [address] DES[id number] [address] [place] Urinalysis complete panel (U )on 12-20-2023 Bilirubin Ql (U) Negative Normal Negative [facility] Comment on above: Order Comment: Speci men Type: URINE SPECIMEN Ordering Facility: [facility] Address: [address] [place] [address] Performed By: #### 2 4356-8 #### [facility] CLIA [id number] [address] [place] [address] [place] Clarity (Unsp spec) Clear Normal Clear [facility] Comment on above: Order Comment: Speci men Type: URINE SPECIMEN Ordering Facility: [facility] Address: [address] [place] [address] Performed By: #### 2 4356-8 #### [facility] CLIA [id number] [address] [place] [address] [place] Color (U) Yellow Normal Yellow [facility] Comment on above: Order Comment: Speci men Type: URINE SPECIMEN Ordering Facility: [facility] Address: [address] [place] [address] Performed By: #### 2 4356-8 #### [facility] CLIA [id number] [address] [place] [address] [place] Epithelial cells LM.HPF (Urine sed) [#/Area] Moderate Normal [facility] Comment on above: Order Comment: Speci men Type: URINE SPECIMEN Ordering Facility: [facility] Address: [address] [place] [address] Performed By: #### 2 4356-8 #### [facility] CLIA [id number] [address] [place] [address] [place] Glucose Test strip (U) [Mass/Vol] Negative Normal Trace, Negative [facility] Comment on above: Order Comment: Speci men Type: URINE SPECIMEN Ordering Facility: [facility] Address: [address] [place] [address] Performed By: #### 2 4356-8 #### [facility] CLIA [id number] [address] [place] [address] [place] Hemoglobin Ql (U) Negative Normal Negative, Trace [facility] Comment on above: Order Comment: Speci men Type: URINE SPECIMEN Ordering Facility: [facility] Address: [address] [place] [address] Performed By: #### 2 4356-8 #### [facility] CLIA [id number] [address] [place] [address] [place] Ketones Ql (U) Negative Normal Negative, Trace [facility] Comment on above: Order Comment: Speci men Type: URINE SPECIMEN Ordering Facility: [facility] Address: [address] [place] [address] Performed By: #### 2 4356-8 #### [facility] CLIA [id number] [address] [place] [address] [place] Leukocyte esterase Test strip Ql (U) Negative Normal Negative, 25 Francisco/uL [facility] Comment on above: Order Comment: Speci men Type: URINE SPECIMEN Ordering Facility: [facility] Address: [address] [place] [address] Performed By: #### 2 4356-8 #### [facility] CLIA [id number] [address] [place] [address] [place] Nitrite Ql (U) Negative Normal Negative [facility] Comment on above: Order Comment: Speci men Type: URINE SPECIMEN Ordering Facility: [facility] Address: [address] [place] [address] Performed By: #### 2 4356-8 #### [facility] CLIA [id number] [address] [place] [address] [place] pH (U) 6.0 [pH] Normal 5.0-8.0 [facility] Comment on above: Order Comment: Speci men Type: URINE SPECIMEN Ordering Facility: [facility] Address: [address] [place] [address] Performed By: #### 2 4356-8 #### [facility] CLIA [id number] [address] [place] [address] [place] Protein (U) [Mass/Vol] Trace Normal Trace , Negative [facility] Comment on above: Order Comment: Speci men Type: URINE SPECIMEN Ordering Facility: [facility] Address: [address] [place] [address] Performed By: #### 2 4356-8 #### [facility] CLIA [id number] [address] [place] [address] [place] RBC LM.HPF (Urine sed) [#/Area] 0-3 /HPF Normal 0-3 /HPF [facility] Comment on above: Order Comment: Speci men Type: URINE SPECIMEN Ordering Facility: [facility] Address: [address] [place] [address] Performed By: #### 2 4356-8 #### [facility] CLIA [id number] [address] [place] [address] [place] Specific gravity (U) [Rel density] 1.023 Normal 1.005-1.030 [facility] Comment on above: Order Comment: Speci men Type: URINE SPECIMEN Ordering Facility: [facility] Address: [address] [place] [address] Performed By: #### 2 4356-8 #### [facility] CLIA [id number] [address] [place] [address] [place] Urobilinogen Ql (U) Normal Normal Normal [facility] Comment on above: Order Comment: Speci men Type: URINE SPECIMEN Ordering Facility: [facility] Address: [address] [place] [address] Performed By: #### 2 4356-8 #### [facility] CLIA [id number] [address] [place] [address] [place] WBC LM.HPF (Urine sed) [#/Area] 0-5 /HPF Normal 0-5 /HPF [facility] Comment on above: Order Comment: Speci men Type: URINE SPECIMEN Ordering Facility: [facility] Address: [place] [address] Performed By: #### 2 4356-8 #### [facility] CLIA [id number] [address] [place] [id number] [place] [facility] XR CHEST 1V FRONTAL PORTon 0 12-20-2023 [...] Dec 20 2023 4:14PM EST [id number] Normal [facility] XR CHEST 2V FRONTAL/LATon XR CHEST [...] Dec 21 2023 10:03AM EST [id number] Normal [facility] XR Chest PA and Lateralon Radiology Study observation (narrative) [facility] XR Chest PA and Lateralon IMPRESSION: Slight increase of the small right pleural effusion. A follow-up exam is recommended. Transcribed Using Voice Recognition Transcribe Date/Time: Dec 14 2023 1:14P Dictated by: JEFFREY KRUEGER MD This examination was interpreted and the report reviewed and electronically signed by: JEFFREY KRUEGER MD on Dec 14 2023 1:15PM [facility] * * *Final Report* * [...] cardiomediastinal silhouette. Bones and soft tissues: Unremarkable. [facility] Provider, Migel Hudson - 12/14/2023 * * *Final Report* * [...] MD on Dec 14 2023 1:15PM EST [facility] XR Chest PA and LateralOrder ed By: [facility]cf Provider on 12-14-2023 [facility] CNOVon 12-13-2023 CNOV Office Visit ([facility] ) -- SAV RAYMUNDO ([id number]) 1950 Date Time Provider Department 12/13/23 2:00 PM TITA LANDRY During your visit today, we recorded the following information about you: Temperature Pulse Respiration Blood pressure 97.3 degrees 68/minute 16/minute 129/80 Weight Height 104 kg 1.829 m Tita Landry APRN.CNP 01/16/2024 10:44 PM Signed [facility] DEPARTMENT OF THORACIC SURGERY OUTPATIENT VISIT DATE December 13, 2023 OUTPATIENT VISIT TYPE ESTABLISHED PT NAME: Sav Raymundo [facility] NO: [id number] THORACIC SURGEON: Ronaldo Flood M.D. DATE OF SERVICE: 12/13/2023 PRINCIPAL DX: Pleural Effusion SURGICAL HX 11/20/2023: R VATS pleural biopsy, right pbx mechanic and doxycycline pleurodesis, right Pleurx catheter insertion, [...] of awilda dr (more content not included)... Normal [facility] XR CHEST 2V FRONTAL/LATon XR CHEST [...] on Dec 14 2023 1:15PM EST [id number] [facility] XR Chest PA and Lateralon Radiology Study observation (narrative) [facility] CNOVon 12-03-2023 CNOV Office Visit ([facility] ) -- SAV RAYMUNDO ([id number]) 1950 Date Time Provider Department 12/03/23 1:00 PM TITA LANDRY During your visit today, we recorded the following information about you: Temperature Pulse Respiration Blood pressure 97.8 degrees 74/minute 14/minute 120/78 Weight Height 102.4 kg 1.829 m Tita Landry APRN.CNP 12/30/2023 10:10 PM Signed [facility] DEPARTMENT OF THORACIC SURGERY OUTPATIENT VISIT DATE December 03, 2023 OUTPATIENT VISIT TYPE ESTABLISHED PT NAME: Sav Raymundo [facility] NO: [id number] THORACIC SURGEON: Ronaldo Flood M.D. DATE OF SERVICE: 12/03/2023 PRINCIPAL DX: Recurrent Right Pleural Effusion SURGICAL HX 11/20/2023: R VATS pleural biopsy, right pbx mechanic and doxycycline pleurodesis, right Pleurx catheter insertion, [...] reactive proliferation. [facility] Della [facility]anian [facility] and agree [...] patient underwent R VATS pleural biopsy, right pbx mechanic and doxycycline pleurodesis, right Pleurx catheter insertion, [...] pleurx was las (more content not included)... Normal [facility] XR CHEST 2V FRONTAL/LATon XR CHEST [...] on Dec 05 2023 12:53PM EST [id number] [facility] Office Visit ([facility] ) -- SAV RAYMUNDO ([id number]) 1950 Date Time Provider Department 11/29/23 3:00 PM TITA LANDRY During your visit today, we recorded the following information about you: Temperature Pulse Respiration Blood pressure 97.3 degrees 71/minute 14/minute 121/68 Weight Height 105.6 kg 1.829 m Tita Landry APRN.CNP 12/30/2023 9:20 PM Signed [facility] DEPARTMENT OF THORACIC SURGERY OUTPATIENT VISIT DATE November 29, 2023 OUTPATIENT VISIT TYPE ESTABLISHED PT NAME: Sav Raymundo CLINIC NO: [id number] THORACIC SURGEON: Ronaldo Flood M.D. DATE OF SERVICE: 11/29/2023 PRINCIPAL DX: Pleural Effusion SURGICAL HX 11/20/2023: R VATS pleural biopsy, right pbx mechanic and doxycycline pleurodesis, right Pleurx catheter insertion, [...] patient underwent R VATS pleural biopsy, right pbx mechanic and doxycycline pleurodesis, right Pleurx catheter insertion, [...] (dark awilda with foam) 11/26: 450 cc (gold letterer than last time with foam) I drained [...] that he can be seen by Dr. Flood to further discuss. IMPRESSION: 73 year old male with pmh significant for recurrent right pleural effusion s/p R VATS pleural biopsy, right pbx mechanic and doxycycline pleurodesis, right Pleurx catheter insertion, right 20Fr chest tube insertion on 11/20/[address] Flood. Patient overall doing well from a clinical standpoint. CXR from today is still pending; to my eye, shows improving right pleural effusion. Patient continues to drain large amounts from pleurx cathete every other day. Fluid cytology negative for malignant cells, but final surgical pathology is still pending. PLAN: -Will call with surgical patholog (more content not included)... Normal [facility] XR CHEST 2V FRONTAL/LATon XR CHEST [...] on Nov 30 2023 4:59PM EST [id number] [facility] 11-24-2023 SANDRINE Telephone ([facility]ARD) -- SAV RAYMUNDO ([id number]) 1950 M Date Time Provider Department 11/24/23 RONALDO FLOOD During your visit today, we recorded the following information about you: Allergies As of Date: 11/24/2023 Noted Allergy Reaction TRAMADOL 12/15/2020 1 - Mental Status Change Date Reviewed: 11/23/2023 Reviewed by: Lilia Slater RN - Fully Assessed Primary Visit Diagnosis:Surgery follow-up [Z09] Order(s):XR CHEST 2V FRONTAL/LAT [[id number]] Order #: [id number] FUTURE Prescriptions as of 11/24/2023 - acetaminophen [...] Encounter Status:Closed by JACEK RODAS on 11/24/23 [facility] NM Heart Perfusion W stress and W radionuclide Scarlett 11-12-2023 * * *Final Report* * * DATE OF EXAM: Nov 12 2023 11:59AM [facility] 0006 - NM CARDIAC PERF STRESS/PHARM / PROCEDURE REASON: multiple diagnoses * * * * Physician Interpretation * * * * Stress Global Project Manager Report: [facility] DASH-2 Date of service: 11/12/2023 10:35:44 AM [...] later. See administered radiotracer and doses below. [facility] Date of service: 11/12/2023 10:35:44 AM Ordering Physician: RONALDO FLOOD. Requesting Physician: RONALDO FLOOD Indication: Assessment for suspected CAD Interpreting physician: [...] * * * Final * * * OK CTA Report: [facility] Date of service: 11/12/2023 10:35:44 AM CTAC interpreting physician: Jose Dawson MD PATIENT: Name: SAV RAYMUNDO Age: 73 years Gender: M 1. Incidental Findings from limited non-diagnostic CTAC: - Coronary calcifications visualized. large right pleural effusion better evaluated on dedicated chest imaging * * * Final * * * Stress ECG Report: [facility] Date of service: 11/12/2023 10:35:44 AM Ordering physician: RONALDO FLOOD research specialist: Joan Almendarez Captain Waiter/Waitress: Solange Mosley Interpreting physician: Jose Dawson MD Patient name: SAV RAYMUNDO Age: 73 years Gender: M Height: 182.88 cm BSA: 2.27 m Weight: 101.15 kg BMI: 30.2 kg/m Indication: Encounter for pre-procedural cardiovascular examination for non-cardiac surgery Stress ECG Conclusion: Conclusion: Normal Comments: Non-specific T wave abnormality at rest and (more content not included)... DIVISION OF RADIOLOGY Provider, [facility] - 11/12/2023 * * *Final Report* * * DATE OF EXAM: Nov 12 2023 11:59AM [facility] 0006 - [place] CARDIAC PERF STRESS/PHARM / PROCEDURE REASON: multiple diagnoses * * * * Physician Interpretation * * * * Stress Global Project Manager Report: [facility] Date of service: 11/12/2023 10:35:44 AM Supervising [...] later. See administered radiotracer and doses below. [facility] [place] Date of service: 11/12/2023 10:35:44 AM Ordering Physician: RONALDO FLOOD. Requesting Physician: RONALDO FLOOD Indication: Assessment for suspected CAD Interpreting physician: [...] Final * * * NM CTAC Report: [facility] Date of service: 11/12/2023 10:35:44 AM CTAC interpreting physician: Jose Dawson MD PATIENT: Name: SAV RAYMUNDO Age: 73 years Gender: M 1. Incidental Findings from limited non-diagnostic CTAC: - Coronary calcifications visualized. large right pleural effusion better evaluated on dedicated chest imaging * * * Final * * * Stress ECG Report: [facility] DASH-2 Date of service: 11/12/2023 10:35:44 AM Ordering physician: RONALDO FLOOD research specialist: Joan Almendarez Captain Waiter/Waitress: Solange Molsey Interpreting physician: Jose Dawson MD Patient name: [...] age. Peak bloo (more content not included)... [facility] NM Heart Perfusion W stress and W radionuclide IVOrdered By: Ccf Provider on 11-12-2023 [facility] No Panel Informationon 11-11 Radiology Study observation (narrative) [facility] US Chest limitedon [facility] XR Chest PA and Lateralon IMPRESSION: See result. Drum Handler: ALONSO Transcribe Date/Time: Nov 12 2023 8:27A Dictated by : BLAS NELSON MD This examination was interpreted and the report reviewed and electronically signed by: BLAS NELSON MD on Nov 12 2023 8:29AM [facility] DIVISION OF RADIOLOGY * * *Final Report* * * DATE OF EXAM: Nov 12 2023 8:09AM [facility] [id number] - XR CHEST 2V FRONTAL/LAT / PROCEDURE REASON: multiple diagnoses * * * * Physician Interpretation * * * * EXAMINATION: CHEST RADIOGRAPH (2 VIEW FRONTAL & LATERAL) CLINICAL HISTORY: Pleural effusion Encounter for other preprocedural examination MQ: [id number] EXAM DATE/TIME: 11/12/2023 8:09 AM COMPARISON: 10/18/2023. RESULT: Lines, tubes, and devices: None. Lungs and pleura: Increased moderate right pleural effusion with associated atelectasis/consolidation. No pneumothorax.. Cardiomediastinal silhouette: Stable cardiomediastinal silhouette. Bones and soft tissues: Degenerative changes are present within the thoracic spine. DIVISION OF RADIOLOGY Provider, [facility] - 11/12/2023 * * *Final Report* * * DATE OF EXAM: Nov 12 2023 8:09AM JIX [id number] - XR CHEST 2V FRONTAL/LAT / PROCEDURE REASON: multiple diagnoses * * * * Physician Interpretation * * * * EXAMINATION: CHEST RADIOGRAPH (2 VIEW FRONTAL & LATERAL) CLINICAL HISTORY: Pleural effusion Encounter for other preprocedural examination MQ: [id number] EXAM DATE/TIME: 11/12/2023 8:09 AM COMPARISON: 10/18/2023. RESULT: Lines, tubes, and devices: None. Lungs and pleura: Increased moderate right pleural effusion with associated atelectasis/consolidation. No pneumothorax.. Cardiomediastinal silhouette: Stable cardiomediastinal silhouette. Bones and soft tissues: Degenerative changes are present within the thoracic spine. IMPRESSION IMPRESSION: See result. Drum Handler: ALONSO Transcribe Date/Time: Nov 12 2023 8:27A Dictated by : BLAS NELSON MD This examination was interpreted and the report reviewed and electronically signed by: BLAS NELSON MD on Nov 12 2023 8:29AM EST [facility] XR Chest PA and LateralOrder ed By: Ccf Provider on 11-12-2023 [facility] Determination of appearance of body fluidon 10-01-2023 Appearance (Body fld) Hazy Clear [facility] Evaluation of color of body fluidon 10-01-2023 Color (Body fld) Yellow . [facility] Comment on above: Colorless to Pale Ye llow/Straw Xander 10-01-2023 L Specimen: [id number] Received: 10/02/23 Status: MARITA Nolasco Num: [id number] Spec Type: Cytology Subm Dr: Calin Clemente DO Tissues: A PLEURAL FLUID (RIGHT PLEURAL FLUID) Procedures: HE/2, Gross/Micro L4, Cyto Prepstain, PAPSTN Age/ Patient Sex Location Account Attending Physician Sav Raymundo 73/M LABELL [id number] Calin Clemente DO SPEC NUM: [id number] RECD: 10/02/23 STATUS: MARITA NOLASCO NUM: [id number] HALLIE: 10/01/[address]: Calin Clemente DO ENTERED: 10/02/[address] [facility] [address]: SPEC TYPE: Cytology DEPT: FAIZA NCYT ENTERED BY: [id number] RECV BY: [id number] ORDERED: HE/2, Gross/Micro L4, Cyto Prepstain, PAPSTN [...] are prepared. 1 cell blocks are prepared. (DE/nh) Specimen: [id number] Received: 10/02/23-1403 Status: MARITA Nolasco Num: [id number] Spec Type: Cytology Subm Dr: Calin Clemente DO Tissues: A PLEURAL FLUID (RIGHT PLEURAL FLUID) Procedures: HE/2, Gross/Micro L4, Cyto Prepstain, PAPSTN Patient: Sav Raymundo [id number] (Continued) Signed (signature on file) Jaspal Olmedo MD 10/03/23 1259 Normal [facility] Laboratory - Microbiology an d Antimicrobial susceptibilityOrdered By: Yuli Mariscal on 10-01-2023 Microscopic observation Gram stain Nom (Unsp spec) [facility] Manual body fluid eosinophil s/100 leukocyteson 10-01-2023 Eosinophils/100 WBC Manual cnt (Body fld) 0 % Not Estab. [facility] Comment on above: Performed at: [facility] - [facility] [address] [id number] Director: Norm Alcaraz PhD, Phone: [phone] Manual body fluid lymphocyte s/100 leukocyteson 10-01-2023 Lymphocytes/100 WBC Manual cnt (Body fld) 39 % Not Estab. [facility] Neutrophils/100 WBC Manual c nt (Body fld)on 10-01-2023 Neutrophils/100 WBC (Body fld) 5 % 0-24 [facility] No Panel InformationOrdered By: Yuli Mariscal on 10-01-2023 Acid Fast Smear [facility] AFB Specimen Processing [facility] No Panel Informationon 09-30 Body Fluid Comment TNP . [facility] Body Fluid Glucose 113 mg/dL . [facility] Comment on above: : BODY FLUID TYPE [...] Children 2007. Ninth edition (V9.1) [employer], [facility]; [place]: December 2008. Body Fluid Lining Cell TNP . [facility] Body Fluid Macrophages (%) 56 % Not Estab. [facility] Body Fluid pH TNP . [facility] Comment on above: Test not performed. Test is not approved for the collectionsite indicated.This test was developed and its performance characteristicsdetermined by [facility]. It has not been cleared orapproved by the Food and Drug Administration.The reference interval(s) and other method performance specificationshave not been established for this body fluid. The test result must beintegrated into the clinical context for interpretation.Performed at: [place] [address] [place] [id number] Director: Yan Escamilla MD, Phone: [phone] Body Fluid RBC 7000 /uL Not Estab. [facility] Body Fluid Total Nucleated Cells 1307 /mm3 0-499 [facility] Comment on above: Pleural Fluid, with <1000 Nucleated cells/uL has beenassociated with transudates while >1000 uL may be seenin exudates. Body Fluid Total Protein 3.7 g/dL . [facility] Comment on above: : BODY FLUID TYPE [...] 2008. Ninth Edition (V9.1) [employer], [facility]; [place]: December 2008.Performed at: [facility] [id number] Director: Norm Alcaraz PhD, Phone: [phone] Fungal Smear Result [facility] Miscellaneous Test Comment See comment [facility] Comment on above: Specimen Source: PL - Pleural Fluid - Pleural Fl - 401.000 Estimated glomerular filtrat ion rate (GFR) non- Americanon 09-11-2023 GFR/1.73 sq M.predicted among non-blacks MDRD (S/P/Bld) [Vol rate/Area] mL/min/{1.73_m2} >=60 [facility] Laboratory - Chemistry and C hemistry - challengeon 09-11-2023 Creatinine [Mass/Vol] 1.02 mg/dL 0.70-1.30 [facility] GFR/1.73 sq M.predicted MDRD (S/P/Bld) [Vol rate/Area] mL/min/{1.73_m2} >=60 [facility] Body fluid differential cell countOrdered By: Calin Clemente on 09-04-2023 Differential panel (Body fld) 50 % [facility] Comment on above: The reference interv al and other method performance specifications have not been established for this body fluid. The test result must be integrated into the clinical context for interpretation. Cell Count/Diff, Fluidon Appearance, Fluid Hazy Normal [facility] Comment on above: Order Comment: Body Fluid Source: Pleural Fluid Body Fluid Site: PLEURAL FLUID Result Comment: The reference interval and other method performance specifications have not been established for this body fluid. The test result must be integrated into the clinical context for interpretation. Performed By: #### F LCCDIFF #### [facility] [address] Color, Fluid Red-Brown Normal [facility] Comment on above: Order Comment: Body Fluid Source: Pleural Fluid Body Fluid Site: PLEURAL FLUID Result Comment: The reference interval and other method performance specifications have not been established for this body fluid. The test result must be integrated into the clinical context for interpretation. Performed By: #### F LCCDIFF #### [facility] [address] [place] [address] [place] Color, Fluid Supernatant Red-Brown Normal [facility] Comment on above: Order Comment: Body Fluid Source: Pleural Fluid Body Fluid Site: PLEURAL FLUID Result Comment: The reference interval and other method performance specifications have not been established for this body fluid. The test result must be integrated into the clinical context for interpretation. Performed By: #### F LCCDIFF #### [address] Eosinophils, Fluid 0 /100{WBC} Normal 0-3 [facility] Comment on above: Order Comment: Body Fluid Source: Pleural Fluid Body Fluid Site: PLEURAL FLUID Result Comment: PERF ORMED BY: [place] [address] PATHOLOGIST [employer]ATE[employer]ING CONSULTANT KATHY HENDRICKSON M.D. Performed By: #### F LCCDIFF #### [address] Lymphocytes, Fluid 38 % Normal [facility] Comment on above: Order Comment: Body Fluid Source: Pleural Fluid Body Fluid Site: PLEURAL FLUID Result Comment: The reference interval and other method performance specifications have not been established for this body fluid. The test result must be integrated into the clinical context for interpretation. Performed By: #### F LCCDIFF #### [address] Monocytes/Macrophages, Fluid 50 % Normal [facility] Comment on above: Order Comment: Body Fluid Source: Pleural Fluid Body Fluid Site: PLEURAL FLUID Result Comment: The reference interval and other method performance specifications have not been established for this body fluid. The test result must be integrated into the clinical context for interpretation. Performed By: #### F LCCDIFF #### [address] Neutrophil, Fluid 12 % Normal [facility] Comment on above: Order Comment: Body Fluid Source: Pleural Fluid Body Fluid Site: PLEURAL FLUID Result Comment: The reference interval and other method performance specifications have not been established for this body fluid. The test result must be integrated into the clinical context for interpretation. Performed By: #### F LCCDIFF #### [facility] [address] [place] [address] RBC, Fluid 96725 /uL Normal [facility] Comment on above: Order Comment: Body Fluid Source: Pleural Fluid Body Fluid Site: PLEURAL FLUID Result Comment: The reference interval and other method performance specifications have not been established for this body fluid. The test result must be integrated into the clinical context for interpretation. Performed By: #### F LCCDIFF #### [facility] [address] TNC, Body Fluid 999 /uL Normal [facility] Comment on above: Order Comment: Body Fluid Source: Pleural Fluid Body Fluid Site: PLEURAL FLUID Result Comment: The reference interval and other method performance specifications have not been established for this body fluid. The test result must be integrated into the clinical context for interpretation. Performed By: #### F LCCDIFF #### [facility] [address] [place] [id number] [facility] Color of Spun Body fluidOrde red By: Calin Clemente on 09-04-2023 Color (Spun body fld) Red-brown [facility] Comment on above: The reference interv al and other method performance specifications have not been established for this body fluid. The test result must be integrated into the clinical context for interpretation. Determination of appearance of body fluidOrdered By: Calin Clemente on 09-04-2023 Appearance (Body fld) Hazy [facility] Comment on above: The reference interv al and other method performance specifications have not been established for this body fluid. The test result must be integrated into the clinical context for interpretation. Evaluation of color of body fluidOrdered By: Calin Clemente on 09-04-2023 Color (Body fld) Red-brown [facility] Comment on above: The reference interv al and other method performance specifications have not been established for this body fluid. The test result must be integrated into the clinical context for interpretation. Xander 09-04-2023 L Specimen: [id number] Received: 09/06/23 Status: MARITA Nolasco Num: [id number] Spec Type: Cytology Subm Dr: Calin Clemente DO Tissues: A PLEURAL FLUID (PLEUR) Procedures: HE/2, Gross/Micro L4, AE1-AE3, CALRETININ, CK20, CK 7, TTF1, Cyto Prepstain, NKX3.1, MOC31, SOX-10, PAPSTN Age/ Patient Sex Location Account Attending Physician Sav Raymundo 73/M LABELL [id number] Calin Clemente DO SPEC NUM: [id number] RECD: 09/06/23 STATUS: MARITA NOLASCO NUM: [id number] HALLIE: 09/04/23-[address] [facility] [address]: Calin Clemente DO ENTERED: 09/06/23-[address] [facility] [address]: SPEC TYPE: Cytology DEPT: CNG ENTERED BY: [id number] RECV BY: [id number] ORDERED: HE/2, Gross/Micro L4, AE1-AE3, CALRETININ, CK20, [...] (ME/nh) Specimen: [id number] Received: 09/06/23 Status: MARITA Gaurav Num: [id number] Spec Type: Cytology Subm Dr: Calin Clemente DO Tissues: A PLEURAL FLUID (PLEUR) Procedures: HE/2, Gross/Micro L4, AE1-AE3, CALRETININ, CK20, CK 7, TTF1, Cyto Prepstain, NKX3.1, MOC31, SOX-10, PAPSTN Patient: Sav Raymundo Pepe [id number] (Continued) Signed (signature on file) Jaspal Olmedo MD 09/12/23 1632 Normal [facility] Laboratory - Chemistry and C hemistry - challengeon 09-04-2023 Cholesterol [Mass/Vol] 59 mg/dL <=200 [facility] Laboratory - Microbiology an d Antimicrobial susceptibilityOrdered By: Yuli Mariscal on 09-04-2023 Microscopic observation Gram stain Nom (Unsp spec) [facility] Manual body fluid eosinophil s/100 leukocytesOrdered By: Calin Clemente on 09-04-2023 Eosinophils/100 WBC Manual cnt (Body fld) 0 /100{WBC} 0-3 [facility] Manual body fluid erythrocyt es count (number/volume)Ordered By: Calin Clemente on 09-04-2023 RBC Manual cnt (Body fld) [#/Vol] 11926 /uL [facility] Comment on above: The reference interv al and other method performance specifications have not been established for this body fluid. The test result must be integrated into the clinical context for interpretation. Manual body fluid lymphocyte s/100 leukocytesOrdered By: Calin Clemente on 09-04-2023 Lymphocytes/100 WBC Manual cnt (Body fld) 38 % [facility] Comment on above: The reference interv al and other method performance specifications have not been established for this body fluid. The test result must be integrated into the clinical context for interpretation. Neutrophils/100 WBC Manual c nt (Body fld)Ordered By: Calin Clemente on 09-04-2023 Neutrophils/100 WBC (Body fld) 12 % [facility] Comment on above: The reference interv al and other method performance specifications have not been established for this body fluid. The test result must be integrated into the clinical context for interpretation. No Panel InformationOrdered By: Yuli Mariscal on 09-04-2023 Acid Fast Smear [facility] AF[employer] Specimen Processing [facility] No Panel Informationon 09-03 Body Fluid Amylase 20 U/L . [facility] Comment on above: : BODY FLUID TYPE : AMYLASE : : : : : Lymph : 50 - 83 : : : : : Peritoneal : : : Fluid : 88 - 109 : : : : : Saliva : : : (Mixed Glands) : [id number] - [id number] : : : : Adeel Das V. Reference Intervals for Adults and Children 2007. Ninth Edition (V9.1) [employer], [facility]; [place]: December 2008.Performed at: [facility], [place], [place] [id number] Director: Norm Alcaraz PhD, Phone: [phone] Body Fluid Glucose 119 mg/dL . [facility] Comment on above: : BODY FLUID TYPE [...] 76 - 288 : : : : [place], Adeel V. Reference Intervals for Adults and Children 2007. Ninth edition (V9.1) [employer], [facility]; [place]: December 2008. Body Fluid pH 8.2 Not Estab. [facility] Comment on above: This test was develo ped and its performance characteristicsdetermined by [facility]. It has not been cleared orapproved by the Food and Drug Administration.The reference interval(s) and other method performance specificationshave not been established for this body fluid. The test result must beintegrated into the clinical context for interpretation.Performed at: [facility] [place], [place] [id number] Director: Yan Escamilla MD, Phone: [phone] Body Fluid Total Protein 3.7 g/dL . [facility] Comment on above: : BODY FLUID TYPE [...] 2008. Ninth Edition (V9.1) [employer], [facility]; [place]: December 2008. Body Fluid Triglycerides 21 mg/dL Not Estab. [facility] Comment on above: The reference interv al(s) and other method performance specificationshave not been established for this body fluid. The test result must beintegrated into the clinical context for interpretation.Performed at: [facility] [id number] Director: Norm Alcaraz PhD, Phone: [phone] Fungal Smear Result [facility] Miscellaneous Test Comment See comment [facility] Comment on above: Specimen Source: PL - Pleural Fluid - Pleural Fl - 401.000 No Panel InformationOrdered By: Calin Clemente on 09-04-2023 Body Fluid Total Nucleated Cells 999 /uL [facility] Comment on above: The reference interv al and other method performance specifications have not been established for this body fluid. The test result must be integrated into the clinical context for interpretation. Serum or plasma free cefurox christine measurement (mass/volume)on 09-04-2023 Cefuroxime free [Mass/Vol] TNP . [facility] Comment on above: Test not performed. No serum gel received.Contacted Shelby at your facility 09/06/2023Test not performed. No serum gel received.Contacted Shreya at your facility 09/06/2023--- 09/06/23 1311 ---GREY Direct previously reported as: Test not performedTest not performed. No serum gel received.Contacted Shelby at your facility 09/06/2023 Serum or plasma rheumatoid f actor measurement (units/volume)on 09-04-2023 Rheumatoid factor Qn TNP [IU]/mL . [facility] Comment on above: Test not performed. No serum gel received.Contacted Shelby at your facility 09/06/2023Test not performed. No serum gel received.Contacted Shreya at your facility 09/06/2023--- 09/06/23 1311 ---RF previously reported as: Test not performed IU/mLTest not performed. No serum gel received.Contacted Shelby at your facility 09/06/2023 Adenosine monophosphate.cycl ic [Moles/Vol]on 08-28-2023 Cyclic Citrullinated Peptid IgG/IgA 1 units 0-19 [facility] Comment on above: Negative <20 Weak po sitive 20 - 39 Moderate positive 40 - 59 Strong positive >59Performed at: [facility] [id number] Director: Norm Alcaraz PhD, Phone: [phone] Negative <20 Weak po sitive 20 - 39 Moderate positive 40 - 59 Strong positive >59Performed at: [facility] [place], [place] [address] [place], [place] [id number] Director: Norm Alcaraz PhD, Phone: [phone] Atypical perinuclear antineu trophil cytoplasmic antibodies measurementon 08-28-2023 Neutrophil cytoplasmic Ab.perinuclear.atypica l IF (S) [Titer] <1:20 titer Neg:<1:20 [facility] Comment on above: The atypical pANCA p attern has been observed in asignificant percentage of patients with ulcerative colitis,primary sclerosing cholangitis and autoimmune hepatitis.Performed at: [facility] [place], [place] [id number] Director: Yan Escamilla MD, Phone: [phone] at: [facility] [place], [place] [id number] Director: Norm Alcaraz PhD, Phone: [phone] Histoplasma capsulatum antib olga detection by complement fixationon 08-28-2023 H. capsulatum Ab CF Ql (S) Negative Neg:<1:2 [facility] Comment on above: Performed at: [facility] [address] [id number] Director: Yan Escamilla MD, Phone: [phone] Myeloperoxidase Ab [Units/vo lume] in Serum by Immunoassayon 08-28-2023 Myeloperoxidase Ab IA Qn (S) <0.2 units 0.0-0.9 [facility] No Panel Informationon 08-27 Miscellaneous Test COMMENT . [facility] Comment on above: Test Ordered: [id number] [place] A IgG/IgM AntibodyCoxsackie A7 IgG 1:100 [H ] titer Reference Range: Neg:<1:100[place] A9 IgG 1:100 [H ] titer BN Reference Range: Neg:<1:100[place] A16 IgG 1:100 [H ] titer BN Reference Range: Neg:<1:100[place] A24 IgG 1:100 [H ] titer BN Reference Range: Neg:<1:100[place] A7 IgM Negative titer Reference Range: Neg:<1:10[place] A9 IgM Negative titer BN Reference Range: Neg:<1:10[place] A16 IgM Negative titer BN Reference Range: Neg:<1:10[place] A24 IgM Negative titer BN Reference Range: Neg:<1:10Performed at: [facility] [address] [id number] Director: Yan Escamilla MD, Phone: [phone] at: [facility] [address] [id number] Director: Norm Alcaraz PhD, Phone: [phone] Perinuclear ANCA (p-ANCA) Antibody <1:20 titer Neg:<1:20 [facility] Comment on above: The presence of posi tive fluorescence exhibiting P-ANCA orC-ANCA patterns alone is not specific for the diagnosis ofWegener's Granulomatosis (WG) or microscopic polyangiitis.Decisions about treatment should not be based solely onANCA IFA results. The International ANCA Group Consensusrecommends follow up testing of positive sera with both OR-3 and MPO-ANCA enzyme immunoassays. As many as 5% serumsamples are positive only by EIA. Ref. AM J Clin Ufwzrx8396;111:507-513. Histoplasma Galactomannan Antigen Negative <0.5 ng/mL [facility] Comment on above: This test was develo ped and its performance characteristicsdetermined by [employer]. It has not been cleared orapproved by the Food and Drug Administration.Performed at: [facility] [place] [address], [place] [id number] Director: Janine Goodman MD, Phone: [phone] Proteinase 3 Ab [Units/volum e] in Serum by Immunoassayon 08-28-2023 Proteinase 3 Ab IA Qn (S) <0.2 units 0.0-0.9 [facility] SCL-70 extractable nuclear A b IA Qn (S)on 08-28-2023 Scl-70 (Scleroderma) Antibody <0.2 AI 0.0-0.9 [facility] Comment on above: Performed at: [facility] [place], [place] [id number] Director: Norm Alcaraz PhD, Phone: [phone] Performed at: [facility] [place], [place] [id number] Director: Norm Alcaraz PhD, Phone: [phone] Serum angiotensin converting enzyme (NANDO) measurementon 08-28-2023 Angiotensin converting enzyme [Catalytic activity/Vol] 34 U/L 14-82 [facility] Comment on above: Performed at: [facility] [place], [place] [id number] Director: Norm Alcaraz PhD, Phone: [phone] Serum classic neutrophil cyt oplasmic antibody titer by immunofluorescenceon 08-28-2023 Neutrophil cytoplasmic Ab.classic IF (S) [Titer] <1:20 titer Neg:<1:20 [facility] Serum or plasma rheumatoid f actor measurement (units/volume)on 08-28-2023 Rheumatoid factor Qn [IU]/mL <14.0 [facility] Comment on above: Performed at: [facility] [place], [place] [id number] Director: Norm Alcaraz PhD, Phone: [phone] Laboratory - Chemistry and C hemistry - challengeon 08-21-2023 Cobalamin (Vitamin B12) [Mass/Vol] 3286.0 pg/mL 193.0-986.0 [facility] TSH Qn 1.287 m[IU]/L 0.358-3.740 [facility] Laboratory - Hematology and Cell countson 08-21-2023 ESR (Bld) [Velocity] 126 mm/h <=20 [facility] No Panel Informationon 08-20 C-Reactive Protein, Quantitative 4.28 mg/dL <=0.50 [facility] Folate 21.60 ng/mL 8.60-58.90 [facility] Serum or plasma free cefurox christine measurement (mass/volume)on 08-21-2023 Cefuroxime free [Mass/Vol] Negative Negative [facility] Comment on above: Performed at: [facility] [address] Director: Norm Alcaraz PhD, Phone: [phone] Basophils Auto (Bld) [#/Vol] on 08-15-2023 Basophils (Bld) [#/Vol] 0.0 10 3/uL 0.0-0.1 [facility] Basophils/100 WBC Auto (Bld) on 08-15-2023 Basophils/100 WBC (Bld) 0.2 % 0.2-2.0 [facility] Eosinophils/100 WBC Auto (Bl d)on 08-15-2023 Eosinophils/100 WBC (Bld) 0.0 % 0.9-7.0 [facility] Erythrocyte distribution wid th Auto (RBC) [Ratio]on 08-15-2023 Erythrocyte distribution width (RBC) [Ratio] 12.5 % 11.0-15.0 [facility] Estimated glomerular filtrat ion rate (GFR) non- Americanon 08-15-2023 GFR/1.73 sq M.predicted among non-blacks MDRD (S/P/Bld) [Vol rate/Area] mL/min/{1.73_m2} >=60 [facility] Globulin Calc (S) [Mass/Vol] on 08-15-2023 Globulin (S) [Mass/Vol] 4.7 g/dL [facility] Hematocrit Auto (Bld) [Volum e fraction]on 08-15-2023 Hematocrit (Bld) [Volume fraction] 34.7 % 42.0-54.0 [facility] Hemoglobin [Mass/volume] in Bloodon 08-15-2023 Hemoglobin (Bld) [Mass/Vol] 11.2 g/dL 14.0-18.0 [facility] - Chemistry and C hemistry - challengeon 08-15-2023 Albumin [Mass/Vol] 3.2 g/dL 3.4-5.0 [facility] ALP [Catalytic activity/Vol] 66 U/L 46-116 [facility] ALT [Catalytic activity/Vol] 33 U/L 16-63 [facility] AST [Catalytic activity/Vol] 24 U/L 15-37 [facility] Bilirubin [Mass/Vol] 0.6 mg/dL 0.2-1.0 [facility] Calcium [Mass/Vol] 8.9 mg/dL 8.5-10.1 [facility] Chloride [Moles/Vol] 101 mmol/L 98-107 [facility] CO2 [Moles/Vol] 27.4 mmol/L 21.0-32.0 [facility] Creatinine [Mass/Vol] 1.06 mg/dL 0.70-1.30 [facility] GFR/1.73 sq M.predicted MDRD (S/P/Bld) [Vol rate/Area] mL/min/{1.73_m2} >=60 [facility] Glucose [Mass/Vol] 115 mg/dL 74-106 [facility] Natriuretic peptide B (Bld) [Mass/Vol] 397.0 pg/mL <=900.0 [facility] Potassium [Moles/Vol] 3.8 mmol/L 3.5-5.1 [facility] Protein [Mass/Vol] 7.9 g/dL 6.4-8.2 [facility] Sodium [Moles/Vol] 138 mmol/L 136-145 [facility] Urea nitrogen [Mass/Vol] 15.0 mg/dL 7.0-18.0 [facility] Urea nitrogen/Creatinine [Mass ratio] 14.2 mg/mg [facility] - Hematology and Cell countson 08-15-2023 ESR (Bld) [Velocity] mm/h <=20 [facility] Immature granulocytes/100 WBC (Bld) 0.4 % 0.0-0.5 [facility] - Microbiology an d Antimicrobial susceptibilityon 08-15-2023 SARS-CoV-2 (COVID-19) RNA BRYN+probe Ql (Unsp spec) Negative NEGATIVE [facility] Comment on above: This test has not [...] Auto (Bld) [#/Vol] 9.9 10 3/uL 4.0-11.0 [facility] Lymphocytes Auto (Bld) [#/Vo l]on 08-15-2023 Lymphocytes (Bld) [#/Vol] 0.8 10 3/uL 1.2-3.8 [facility] Lymphocytes/100 WBC Auto (Bl d)on 08-15-2023 Lymphocytes/100 WBC (Bld) 8.0 % 20.5-60.0 [facility] MCH Auto (RBC) [Entitic mass ]on 08-15-2023 MCH (RBC) [Entitic mass] 32.3 pg 25.9-34.0 [facility] MCHC Auto (RBC) [Mass/Vol]on 08-15-2023 MCHC (RBC) [Mass/Vol] 32.3 g/dL 29.9-35.2 [facility] MCV Auto (RBC) [Entitic vol] on 08-15-2023 MCV (RBC) [Entitic vol] 100.0 fL 80.0-94.0 [facility] Monocytes Auto (Bld) [#/Vol] on 08-15-2023 Monocytes (Bld) [#/Vol] 1.0 10 3/uL 0.3-0.8 [facility] Monocytes/100 WBC Auto (Bld) on 08-15-2023 Monocytes/100 WBC (Bld) 9.9 % 1.7-12.0 [facility] Neutrophils Auto (Bld) [#/Vo l]on 08-15-2023 Neutrophils (Bld) [#/Vol] 8.1 10 3/uL 1.4-6.5 [facility] Neutrophils/100 WBC Auto (Bl d)on 08-15-2023 Neutrophils/100 WBC (Bld) 81.5 % 43.0-75.0 [facility] No Panel Informationon C-Reactive Protein, Quantitative 6.36 mg/dL <=0.50 [facility] Eosinophils # (Auto) 0.0 10 3/uL 0.0-0.7 [facility] Immature Granulocyte # (Auto) 0.04 10 3/uL 0.00-0.03 [facility] Troponin I High Sensitivity 11.9 pg/mL 4.0-76.1 [facility] Comment on above: CUT-OFF POINTS HAVE BEEN [...] INFORMATION. Bedside Influenza Type A Antigen Negative [facility] Comment on above: Negative for Flu A p rotein antigen. Infection due to Flu Acannot be ruled out. Flu A antigen in the sample may bebelow the detection limit of the test. Bedside Influenza Type B Antigen Negative [facility] Comment on above: Negative for Flu B p rotein antigen. Infection due to Flu Bcannot be ruled out. Flu B antigen in the sample may bebelow the detection limit of the test. Platelet mean volume Auto (B ld) [Entitic vol]on 08-15-2023 Platelet mean volume (Bld) [Entitic vol] 9.5 fL 9.5-13.5 [facility] Platelets Auto (Bld) [#/Vol] on 08-15-2023 Platelets (Bld) [#/Vol] 288 10 3/uL 150-450 [facility] RBC Auto (Bld) [#/Vol]on RBC (Bld) [#/Vol] 3.47 10 6/uL 4.70-6.10 [facility] Serum or plasma albumin/glob ulin mass ratioon 08-15-2023 Albumin/Globulin [Mass ratio] 0.7 {ratio} [facility] Serum or plasma anion gap de terminationon 08-15-2023 Anion gap [Moles/Vol] 13.4 mmol/L [facility] XR KNEE LEFT 4+ VIEWS (SPECI FY VIEWS IN COMMENTS)on 01-16-2023 XR KNEE LEFT 4+ VIEWS (SPECIFY VIEWS IN COMMENTS) X-rays of the left knee from [facility] taken today are reviewed. My personal interpretation [...] significant osteolysis or loosening. Dictated by: NENA HUFF on SatJan 16, 2023 10:52:01 AM EDT Transcribed by: NENA HUFF on SatJan 16, 2023 10:52:01 AM EDT Finalized by: NENA HUFF on SatJan 16, 2023 10:52:01 AM EDT [facility] Comment on above: Order Comment: Injur [...] on SatAug 28, 2022 1:49:21 PM EDT Normal [facility] Comment on above: Order Comment: Injur y/Trauma or Illness?:Illness/Other How long have you had these symptoms (acute/chronic)?:Unknown Reason for exam?:n/a History of cancer?:n/a Surgeries, chemotherapy, or radiation?:n/a Type of Exam?:Unknown Additional signs and symptoms?:n/a XR ANKLE RIGHT 3+ VIEWS (DEBBY PARRA)on 08-28-2022 XR ANKLE RIGHT 3+ VIEWS (STANDARD) [...] SatAug 28, 2022 1:50:20 PM EDT Normal [facility] Comment on above: Order Comment: [...] SatAug 28, 2022 1:49:28 PM EDT Normal [facility] Comment on above: Order Comment: Injur y/Trauma or Illness?:Illness/Other How long have you had these symptoms (acute/chronic)?:Unknown Reason for exam?:n/a History of cancer?:n/a Surgeries, chemotherapy, or radiation?:n/a Type of Exam?:Unknown Additional signs and symptoms?:n/a XR FOOT RIGHT 2 VIEWSon - XR FOOT RIGHT 2 VIEWS Weightbearing radi [...] on SatAug 28, 2022 1:50:37 PM EDT [facility] Comment on above: Order Comment: Injur y/Trauma or Illness?:Illness/Other How long have you had these symptoms (acute/chronic)?:Unknown Reason for exam?:n/a History of cancer?:n/a Surgeries, chemotherapy, or radiation?:n/a Type of Exam?:Unknown Additional signs and symptoms?:n/a CBC AUTO DIFFon 03-19-2022 BASO # 0.1 103/ul Normal 0.0-0.1 [facility] Comment on above: Performed By: #### D ATCBC #### [facility] [address] [place] [address] Dr. Joni Sanders Basophils/100 WBC (Bld) 1.0 % Normal 0.2-2.0 [facility] Comment on above: Performed By: #### D ATCBC #### [facility] [address] [place] [address] Dr. Joni Sanders EO # 0.1 103/ul Normal 0.0-0.7 [facility] Comment on above: Performed By: #### D ATCBC #### [facility] [address] [place] [address] Dr. Joni Sanders Eosinophils/100 WBC (Bld) 2.0 % Normal 0.9-7.0 [facility] Comment on above: Performed By: #### D ATCBC #### [facility] [address] [place] [address] Dr. Joni Sanders Erythrocyte distribution width (RBC) [Ratio] 12.4 % Normal 11.0-15.0 [facility] Comment on above: Performed By: #### D ATCBC #### [facility] [address] [place] [address] Dr. Joni Sanders Hematocrit (Bld) [Volume fraction] 43.7 % Normal 42.0-54.0 [facility] Comment on above: Performed By: #### D ATCBC #### [facility] [address] [place] [address] Dr. Joni Sanders Hemoglobin (Bld) [Mass/Vol] 14.6 g/dL Normal 14.0-18.0 [facility] Comment on above: Performed By: #### D ATCBC #### [facility] [address] [place] [address] Dr. Joni Sanders IG # 0.02 10e3/ul Normal 0.00-0.03 [facility] Comment on above: Performed By: #### D ATCBC #### [facility] [address] [place] [address] Dr. Joni Sanders IG % 0.3 % Normal 0.0-0.5 [facility] Comment on above: Performed By: #### D ATCBC #### [facility] [address] [place] [address] Dr. Joni Sadners LYMPH # 2.0 103/ul Normal 1.2-3.8 [facility] Comment on above: Performed By: #### D ATCBC #### [facility] [address] [place] [address] Dr. Joni Sanders Lymphocytes/100 WBC (Bld) 33.3 % Normal 20.5-60.0 [facility] Comment on above: Performed By: #### D ATCBC #### [facility] [address] [place] [address] Dr. Joni Sanders MCH (RBC) [Entitic mass] 32.6 pg Normal 25.9-34.0 [facility] Comment on above: Performed By: #### D ATCBC #### [facility] [address] [place] [address] Dr. Joni Sanders MCHC (RBC) [Mass/Vol] 33.4 g/dL Normal 29.9-35.2 [facility] Comment on above: Performed By: #### D ATCBC #### [facility] [address] [place] [address] Dr. Joni Sanders MCV (RBC) [Entitic vol] 97.5 fL Critically high 80.0-94.0 [facility] Comment on above: Performed By: #### D ATCBC #### [facility] [address] [place] [address] Dr. Joni Sanders MONO # 0.6 103/ul Normal 0.3-0.8 [facility] Comment on above: Performed By: #### D ATCBC #### [facility] [address] [place] [address] Dr. Joni Sanders Monocytes/100 WBC (Bld) 9.8 % Normal 1.7-12.0 [facility] Comment on above: Performed By: #### D ATCBC #### [facility] [address] [place] [address] Dr. Joni Sanders NEUT # 3.2 103/ul Normal 1.4-6.5 [facility] Comment on above: Performed By: #### D ATCBC #### [facility] [address] [place] [address] Dr. Joni Sanders Neutrophils/100 WBC (Bld) 53.6 % Normal 43.0-75.0 [facility] Comment on above: Performed By: #### D ATCBC #### [facility] [address] [place] [address] Dr. Joni Sanders Platelet mean volume (Bld) [Entitic vol] 9.9 fL Normal 9.5-13.5 [facility] Comment on above: Performed By: #### D ATCBC #### [facility] [address] [place] [address] Dr. Joni Sanders PLT 239 103/ul Normal 150-450 [facility] Comment on above: Performed By: #### D ATCBC #### [facility] [address] [place] [address] Dr. Joni Sanders RBC 4.48 106/ul Critically low 4.70-6.10 [facility] Comment on above: Performed By: #### D ATCBC #### [facility] [address] [place] [address] Dr. Joni Sanders WBC 5.9 103/ul Normal 4.0-11.0 [facility] Comment on above: Performed By: #### D ATCBC #### [facility] [address] [place] [address] Dr. Joni Sanders SILVIA- BMP WITH LIPIDon 2021 Anion gap [Moles/Vol] 12.7 mmol/L Normal [facility] Comment on above: Performed By: #### D ATBMP #### [facility] [address] [place] [address] Dr. Joni Sanders Calcium [Mass/Vol] 9.0 mg/dL Normal 8.5-10.1 [facility] Comment on above: Performed By: #### D ATBMP #### [facility] [address] [address] [address] Joni Sanders Chloride [Moles/Vol] 104 mmol/L Normal 98-107 [facility] Comment on above: Performed By: #### D ATBMP #### [facility] [address] [address] [address] Joni Sanders Cholesterol [Mass/Vol] 188 mg/dL Normal <=200 [facility] Comment on above: Performed By: #### D ATBMP #### [facility] [address] [address] [address] Joni Sanders Cholesterol in HDL [Mass/Vol] 45 mg/dL Normal 40-60 [facility] Comment on above: Performed By: #### D ATBMP #### [facility] [address] [address] [address] Joni Sanders Cholesterol in LDL [Mass/Vol] 102.2 mg/dL Normal [facility] Comment on above: Performed By: #### D ATBMP #### [facility] [address] [address] [address] Joni Sanders CO2 [Moles/Vol] 27.7 mmol/L Normal 21.0-32.0 [facility] Comment on above: Performed By: #### D ATBMP #### [facility] [address] [address] [address] Joni Sanders Creatinine [Mass/Vol] 1.00 mg/dL Normal 0.70-1.30 [facility] Comment on above: Performed By: #### D ATBMP #### [facility] [address] [address] [address] Joni Sanders EGFR-AF VIET[place]ESE >60 Normal >=60 [facility] Comment on above: Performed By: #### D ATBMP #### [facility] [address] [address] [address] Joni Sanders EGFR-NON AF VIET[place]ESE >60 Normal >=60 [facility] Comment on above: Performed By: #### D ATBMP #### [facility] [address] [address] [address] Joni Sanders Glucose [Mass/Vol] 107 mg/dL Critically high 74-106 T [facility] Comment on above: Performed By: #### D ATBMP #### [facility] [address] [address] [address] Joni Sanders HDL NORMAL > or = 60 mg/dl - LO W CARDIOVASCULAR RISK <40 mg/dl - HIGH CARDIOVASCULAR RISK Normal [facility] Comment on above: Performed By: #### D ATBMP #### [facility] [address] [place] [address] Dr. Joni Sanders LDL CALC NORMAL SEE BELOW Normal [facility] Comment on above: Result Comment: <100 mg/dl OPTIMAL 100 - 129 mg/dl NEAR OR ABOVE OPTIMAL 130 - 159 mg/dl BORDERLINE HIGH 160 - 189 mg/dl HIGH >190 mg/dl VERY HIGH Performed By: #### D ATBMP #### [facility] [address] [address] [address] Joni Sanders Potassium [Moles/Vol] 4.4 mmol/L Normal 3.5-5.1 [facility] Comment on above: Performed By: #### D ATBMP #### [facility] [address] [place] [address] Dr. Joni Sanders Sodium [Moles/Vol] 140 mmol/L Normal 136-145 [facility] Comment on above: Performed By: #### D ATBMP #### [facility] [address] [address] [address] Joni Sanders Triglyceride [Mass/Vol] 204 mg/dL Critically high <=150 [facility] Comment on above: Performed By: #### D ATBMP #### [facility] [address] [address] [address] Joni Sanders Urea nitrogen [Mass/Vol] 22.0 mg/dL Critically high 7.0-18.0 [facility] Comment on above: Performed By: #### D ATBMP #### [facility] [address] [place], [place] [address] Dr. Joni Sanders Urea nitrogen/Creatinine [Mass ratio] 22.0 mg/mg Normal [facility] Comment on above: Performed By: #### D ATBMP #### [facility] [address] [address] [address] Joni Sanders VLDL CALC 40.8 mg/dL Normal [facility] Comment on above: Performed By: #### D ATBMP #### [facility] [address] [address] [address] Joni Sanders Vital Signs Date Time Vital Sign Value Performing Clinician Facility 03-25-2025 11:17-0400 Body height 182.9 cm Jameledwin Chowdary DPM Work Phone: [facility] 03-25-2025 11:17-0400 Body mass index (BMI) [Ratio] 25.58 kg/m2 Jameledwin Chowdary DPM Work Phone: [facility] 03-25-2025 11:17-0400 Body weight 85.55 kg Jamel Amee DPM Work Phone: [facility] 03-17-2025 10:20-0400 Body height 182.9 cm Jameledwin Chowdary DPM Work Phone: [facility] 03-17-2025 10:20-0400 Body mass index (BMI) [Ratio] 25.58 kg/m2 Jameledwin Chowdary DPM Work Phone: [facility] 03-17-2025 10:20-0400 Body weight 85.55 kg Jameledwin Chowdary DPM Work Phone: [facility] 03-12-2025 08:48-0400 Body height 182.9 cm Jameledwin Chowdary DPM Work Phone: [facility] 03-12-2025 08:48-0400 Body mass index (BMI) [Ratio] 25.58 kg/m2 Jamel Amee DPM Work Phone: [facility] 03-12-2025 08:48-0400 Body weight 85.55 kg Jameledwin Chowdary DP Work Phone: [facility] 02-25-2025 10:02-0400 Body height 182.9 cm Zabrina Suarez MD Work Phone: [facility] 02-25-2025 10:02-0400 Body mass index (BMI) [Ratio] 26.01 kg/m2 Zabrina Suarez MD Work Phone: [facility] 02-25-2025 10:02-0400 Body weight 87 kg Zabrina Suarez MD Work Phone: [facility] 02-25-2025 10:02-0400 Diastolic blood pressure 78 mm[Hg] Zabrina Suarez MD Work Phone: [facility] 02-25-2025 10:02-0400 Heart rate 91 /min Zabrina Suarez MD Work Phone: [facility] 02-25-2025 10:02-0400 Systolic blood pressure 123 mm[Hg] Zabrina Suarez MD Work Phone: [facility] 01-26-2025 13:02-0400 Body height 182.9 cm Jose Antonio Hopper MD Work Phone: [facility] 01-26-2025 13:02-0400 Body mass index (BMI) [Ratio] 25.09 kg/m2 Jose Antonio Hopper MD Work Phone: [facility] 01-26-2025 13:02-0400 Body temperature 98.6 [degF] Jose Antonio Hopper MD Work Phone: [facility] 01-26-2025 13:02-0400 Body weight 83.92 kg Jose Antonio Hopper MD Work Phone: [facility] 01-26-2025 13:02-0400 Diastolic blood pressure 78 mm[Hg] Jose Antonio Hopper MD Work Phone: [facility] 01-26-2025 13:02-0400 Heart rate 86 /min Jose Antonio Hopper MD Work Phone: [facility] 01-26-2025 13:02-0400 Respiratory rate 17 /min Jose Antonio Hopper MD Work Phone: [facility] 01-26-2025 13:02-0400 SaO2% (BldA) [Mass fraction] 96 % Jose Antonio Hopper MD Work Phone: [facility] 01-26-2025 13:02-0400 Systolic blood pressure 125 mm[Hg] Jose Antonio Hopper MD Work Phone: [facility] 01-11-2025 09:04-0400 Body mass index (BMI) [Ratio] 25.35 kg/m2 Triston Riggs MD Work Phone: [facility] 01-11-2025 09:04-0400 Body temperature 98.01 [degF] Triston Riggs MD Work Phone: [facility] 01-11-2025 09:04-0400 Body weight 84.8 kg Triston Riggs MD Work Phone: [facility] 01-11-2025 09:04-0400 Diastolic blood pressure 74 mm[Hg] Triston Riggs MD Work Phone: [facility] 01-11-2025 09:04-0400 Heart rate 85 /min Triston Riggs MD Work Phone: [facility] 01-11-2025 09:04-0400 Respiratory rate 16 /min Triston Riggs MD Work Phone: [facility] 01-11-2025 09:04-0400 SaO2% (BldA) [Mass fraction] 86 % Triston Riggs MD Work Phone: [facility] 01-11-2025 09:04-0400 Systolic blood pressure 124 mm[Hg] Triston Riggs MD Work Phone: [facility] 11-23-2024 22:15-0400 Body temperature 97.2 [degF] Triston Riggs MD Work Phone: [facility] 11-23-2024 22:15-0400 Diastolic blood pressure 74 mm[Hg] Triston Riggs MD Work Phone: [facility] 11-23-2024 22:15-0400 Heart rate 88 /min Triston Riggs MD Work Phone: [facility] 11-23-2024 22:15-0400 Respiratory rate 16 /min Triston Riggs MD Work Phone: [facility] 11-23-2024 22:15-0400 SaO2% (BldA) [Mass fraction] 98 % Triston Riggs MD Work Phone: [facility] 11-23-2024 22:15-0400 Systolic blood pressure 120 mm[Hg] Triston Riggs MD Work Phone: [facility] 11-20-2024 09:04-0400 Body height 182.9 cm Zac Mendiola MD Work Phone: [facility] 11-20-2024 09:04-0400 Body mass index (BMI) [Ratio] 23.46 kg/m2 Zac Mendiola MD Work Phone: [facility] 11-20-2024 09:04-0400 Body weight 78.47 kg Zac Mendiola MD Work Phone: [facility] 11-20-2024 09:04-0400 Diastolic blood pressure 68 mm[Hg] Zac Mendiola MD Work Phone: [facility] 11-20-2024 09:04-0400 Heart rate 64 /min Zac Mendiola MD Work Phone: [facility] 11-20-2024 09:04-0400 SaO2% (BldA) [Mass fraction] 99 % Zac Mendiola MD Work Phone: [facility] 11-20-2024 09:04-0400 Systolic blood pressure 108 mm[Hg] Zac Mendiola MD Work Phone: [facility] 11-19-2024 13:58-0400 Body temperature 96.8 [degF] Triston Riggs MD Work Phone: [facility] 11-19-2024 13:58-0400 Diastolic blood pressure 83 mm[Hg] Triston Riggs MD Work Phone: [facility] 11-19-2024 13:58-0400 Heart rate 81 /min Triston Riggs MD Work Phone: [facility] 11-19-2024 13:58-0400 Respiratory rate 16 /min Triston Riggs MD Work Phone: [facility] 11-19-2024 13:58-0400 SaO2% (BldA) [Mass fraction] 97 % Triston Riggs MD Work Phone: [facility] 11-19-2024 13:58-0400 Systolic blood pressure 129 mm[Hg] Triston Riggs MD Work Phone: [facility] 11-13-2024 13:02-0400 Body height 182.9 cm Jose Antonio Hopper MD Work Phone: [facility] 11-13-2024 13:02-0400 Body mass index (BMI) [Ratio] 26.99 kg/m2 Jose Antonio Hopper MD Work Phone: [facility] 11-13-2024 13:02-0400 Body temperature 98.6 [degF] Jose Antonio Hopper MD Work Phone: [facility] 11-13-2024 13:02-0400 Body weight 90.27 kg Jose Antonio Hopper MD Work Phone: [facility] 11-13-2024 13:02-0400 Diastolic blood pressure 75 mm[Hg] Jose Antonio Hopper MD Work Phone: [facility] 11-13-2024 13:02-0400 Heart rate 81 /min Jose Antonio Hopper MD Work Phone: [facility] 11-13-2024 13:02-0400 Respiratory rate 16 /min Jose Antonio Hopper MD Work Phone: [facility] 11-13-2024 13:02-0400 SaO2% (BldA) [Mass fraction] 96 % Jose Antonio Hopper MD Work Phone: [facility] 11-13-2024 13:02-0400 Systolic blood pressure 125 mm[Hg] Jose Antonio Hopper MD Work Phone: [facility] 10-15-2024 08:44-0400 Body height 182.9 cm Zabrina Suarez MD Work Phone: [facility] 10-15-2024 08:44-0400 Body mass index (BMI) [Ratio] 27.12 kg/m2 Zabrina Suarez MD Work Phone: [facility] 10-15-2024 08:44-0400 Body temperature 97.9 [degF] Zabrina Suarez MD Work Phone: [facility] 10-15-2024 08:44-0400 Body weight 90.7 kg Zabrina Suarez MD Work Phone: [facility] 10-15-2024 08:44-0400 Diastolic blood pressure 83 mm[Hg] Zabrina Suarez MD Work Phone: [facility] 10-15-2024 08:44-0400 Heart rate 83 /min Zabrina Suarez MD Work Phone: [facility] 10-15-2024 08:44-0400 Systolic blood pressure 131 mm[Hg] Zabrina Suarez MD Work Phone: [facility] 10-14-2024 14:34-0400 Body height 182.9 cm Xiomara Ly APRN.CNP Work Phone: [facility] 10-14-2024 14:34-0400 Body mass index (BMI) [Ratio] 26.72 kg/m2 Xiomara Ly SHOE STICKS REPAIRER.STEAM TUNNEL FEEDER Work Phone: [facility] 10-14-2024 14:34-0400 Body temperature 97.2 [degF] Xiomarakarey Ly SHOE STICKS REPAIRER.STEAM TUNNEL FEEDER Work Phone: [facility] 10-14-2024 14:34-0400 Body weight 89.36 kg Xiomara Ly SHOE STICKS REPAIRER.STEAM TUNNEL FEEDER Work Phone: [facility] 10-14-2024 14:34-0400 Diastolic blood pressure 65 mm[Hg] Xiomara Ly SHOE STICKS REPAIRER.STEAM TUNNEL FEEDER Work Phone: [facility] 10-14-2024 14:34-0400 Heart rate 84 /min Xiomara Ly SHOE STICKS REPAIRER.STEAM TUNNEL FEEDER Work Phone: [facility] 10-14-2024 14:34-0400 SaO2% (BldA) [Mass fraction] 95 % Xiomara Ly SHOE STICKS REPAIRER.STEAM TUNNEL FEEDER Work Phone: [facility] 10-14-2024 14:34-0400 Systolic blood pressure 110 mm[Hg] Xiomara Calderonman SHOE STICKS REPAIRER.STEAM TUNNEL FEEDER Work Phone: [facility] 10-14-2024 12:51-0400 Body temperature 96.8 [degF] Triston Riggs MD Work Phone: [facility] 10-14-2024 12:51-0400 Diastolic blood pressure 87 mm[Hg] Triston Riggs MD Work Phone: [facility] 10-14-2024 12:51-0400 Heart rate 88 /min Triston Riggs MD Work Phone: [facility] 10-14-2024 12:51-0400 Respiratory rate 16 /min Triston Riggs MD Work Phone: [facility] 10-14-2024 12:51-0400 SaO2% (BldA) [Mass fraction] 98 % Triston Riggs MD Work Phone: [facility] 10-14-2024 12:51-0400 Systolic blood pressure 141 mm[Hg] Triston Riggs MD Work Phone: [facility] 09-25-2024 12:20-0400 Heart rate 67 /min Shay Dennis MD Work Phone: [facility] 09-25-2024 12:20-0400 Respiratory rate 16 /min Shay Dennis MD Work Phone: [facility] 09-25-2024 12:20-0400 SaO2% (BldA) [Mass fraction] 99 % Shay Dennis MD Work Phone: [facility] 09-25-2024 12:10-0400 Diastolic blood pressure 72 mm[Hg] Shay Dennis MD Work Phone: [facility] 09-25-2024 12:10-0400 Systolic blood pressure 105 mm[Hg] Shay Dennis MD Work Phone: [facility] 09-25-2024 11:47-0400 Body temperature 96.8 [degF] Shay Dennis MD Work Phone: [facility] 09-25-2024 10:49-0400 Body height 182.9 cm Shay Dennis MD Work Phone: [facility] 09-25-2024 10:49-0400 Body mass index (BMI) [Ratio] 26.45 kg/m2 Shay Dennis MD Work Phone: [facility] 09-25-2024 10:49-0400 Body weight 88.45 kg Shay Dennis MD Work Phone: [facility] 09-11-2024 12:11-0400 Body height 182.88 cm [facility] 09-11-2024 12:11-0400 Body mass index (BMI) [Ratio] 27.3 kg/m2 [facility] 09-11-2024 12:11-0400 Body weight 91.28 kg [facility] 09-11-2024 12:11-0400 Diastolic blood pressure 72 mm[Hg] [facility] 09-11-2024 12:11-0400 Heart rate 88 /min [facility] 09-11-2024 12:11-0400 Respiratory rate 12 /min [facility] 09-11-2024 12:11-0400 Systolic blood pressure 111 mm[Hg] [facility] 09-04-2024 13:30-0400 Body height 182.9 cm Jose Antonio Hopper MD Work Phone: [facility] 09-04-2024 13:30-0400 Body mass index (BMI) [Ratio] 25.36 kg/m2 Jose Antonio Hopper MD Work Phone: [facility] 09-04-2024 13:30-0400 Body temperature 98.6 [degF] Jose Antonio Hopper MD Work Phone: [facility] 09-04-2024 13:30-0400 Body weight 84.82 kg Jose Antonio Hopper MD Work Phone: [facility] 09-04-2024 13:30-0400 Diastolic blood pressure 78 mm[Hg] Jose Antonio Hopper MD Work Phone: [facility] 09-04-2024 13:30-0400 Heart rate 77 /min Jose Antonio Hopper MD Work Phone: [facility] 09-04-2024 13:30-0400 Respiratory rate 15 /min Jose Antonio Hopper MD Work Phone: [facility] 09-04-2024 13:30-0400 SaO2% (BldA) [Mass fraction] 96 % Jose Antonio Hopper MD Work Phone: [facility] 09-04-2024 13:30-0400 Systolic blood pressure 112 mm[Hg] Jose Antonio Hopper MD Work Phone: [facility] 08-24-2024 10:43-0400 Body height 182.9 cm Sue Murillo MD Work Phone: [facility] 08-24-2024 10:43-0400 Body mass index (BMI) [Ratio] 25.44 kg/m2 Sue Murillo MD Work Phone: [facility] 08-24-2024 10:43-0400 Body temperature 97.9 [degF] Sue Murillo MD Work Phone: [facility] 08-24-2024 10:43-0400 Body weight 85.09 kg Sue Murillo MD Work Phone: [facility] 08-24-2024 10:43-0400 Diastolic blood pressure 78 mm[Hg] Sue Murillo MD Work Phone: [facility] 08-24-2024 10:43-0400 Heart rate 78 /min Sue Murillo MD Work Phone: [facility] 08-24-2024 10:43-0400 SaO2% (BldA) [Mass fraction] 96 % Sue Murillo MD Work Phone: [facility] 08-24-2024 10:43-0400 Systolic blood pressure 122 mm[Hg] Sue Murillo MD Work Phone: [facility] 08-18-2024 14:09-0500 Body height 182.9 cm Della Barragan APRN.STEAM TUNNEL FEEDER Work Phone: [facility] 08-18-2024 14:09-0500 Body mass index (BMI) [Ratio] 26.42 kg/m2 Della Barragan APRN.STEAM TUNNEL FEEDER Work Phone: [facility] 08-18-2024 14:09-0500 Body temperature 98.2 [degF] Della Barragan APRN.STEAM TUNNEL FEEDER Work Phone: [facility] 08-18-2024 14:09-0500 Body weight 88.36 kg Della Barragan APRN.STEAM TUNNEL FEEDER Work Phone: [facility] 08-18-2024 14:09-0500 Diastolic blood pressure 67 mm[Hg] Della Barragan SHOE STICKS REPAIRER.STEAM TUNNEL FEEDER Work Phone: [facility] 08-18-2024 14:09-0500 Heart rate 82 /min Delal Barragan SHOE STICKS REPAIRER.STEAM TUNNEL FEEDER Work Phone: [facility] 08-18-2024 14:09-0500 Respiratory rate 14 /min Della Barragan SHOE STICKS REPAIRER.STEAM TUNNEL FEEDER Work Phone: [facility] 08-18-2024 14:09-0500 SaO2% (BldA) [Mass fraction] 98 % Della Barragan SHOE STICKS REPAIRER.STEAM TUNNEL FEEDER Work Phone: [facility] 08-18-2024 14:09-0500 Systolic blood pressure 111 mm[Hg] Della Barragan SHOE STICKS REPAIRER.STEAM TUNNEL FEEDER Work Phone: [facility] 07-21-2024 13:27-0500 Body height 182.9 cm Jose Antonio Hopper MD Work Phone: [facility] 07-21-2024 13:27-0500 Body mass index (BMI) [Ratio] 26.31 kg/m2 Jose Antonio Hopper MD Work Phone: [facility] 07-21-2024 13:27-0500 Body temperature 98.6 [degF] Jose Antonio Hopper MD Work Phone: [facility] 07-21-2024 13:27-0500 Body weight 88 kg Jose Antonio Hopper MD Work Phone: [facility] 07-21-2024 13:27-0500 Diastolic blood pressure 80 mm[Hg] Jose Antonio Hopper MD Work Phone: [facility] 07-21-2024 13:27-0500 Heart rate 75 /min Jose Antonio Hopper MD Work Phone: [facility] 07-21-2024 13:27-0500 Respiratory rate 16 /min Jose Antonio Hopper MD Work Phone: [facility] 07-21-2024 13:27-0500 SaO2% (BldA) [Mass fraction] 98 % Jose Antonio Hopper MD Work Phone: [facility] 07-21-2024 13:27-0500 Systolic blood pressure 118 mm[Hg] Jose Antonio Hopper MD Work Phone: [facility] 07-20-2024 12:49-0500 Body temperature 97.2 [degF] Triston Riggs MD Work Phone: [facility] 07-20-2024 12:49-0500 Diastolic blood pressure 86 mm[Hg] Triston Riggs MD Work Phone: [facility] 07-20-2024 12:49-0500 Heart rate 89 /min Triston Riggs MD Work Phone: [facility] 07-20-2024 12:49-0500 Respiratory rate 16 /min Triston Riggs MD Work Phone: [facility] 07-20-2024 12:49-0500 SaO2% (BldA) [Mass fraction] 97 % Triston Riggs MD Work Phone: [facility] 07-20-2024 12:49-0500 Systolic blood pressure 132 mm[Hg] Triston Riggs MD Work Phone: [facility] 07-14-2024 16:31-0500 Body height 182.88 cm [facility] 07-14-2024 16:31-0500 Body mass index (BMI) [Ratio] 25.6 kg/m2 [facility] 07-14-2024 16:31-0500 Body temperature 97.1 [degF] [facility] 07-14-2024 16:31-0500 Body weight 85.78 kg [facility] 07-14-2024 16:31-0500 Diastolic blood pressure 84 mm[Hg] [facility] 07-14-2024 16:31-0500 Heart rate 87 /min [facility] 07-14-2024 16:31-0500 Respiratory rate 12 /min [facility] 07-14-2024 16:31-0500 Systolic blood pressure 121 mm[Hg] [facility] 06-22-2024 09:15-0500 Body temperature 97 [degF] Triston Riggs MD Work Phone: [facility] 06-22-2024 09:15-0500 Diastolic blood pressure 91 mm[Hg] Triston Riggs MD Work Phone: [facility] 06-22-2024 09:15-0500 Heart rate 91 /min Triston Riggs MD Work Phone: [facility] 06-22-2024 09:15-0500 Respiratory rate 16 /min Triston Riggs MD Work Phone: [facility] 06-22-2024 09:15-0500 SaO2% (BldA) [Mass fraction] 98 % Triston Riggs MD Work Phone: [facility] 06-22-2024 09:15-0500 Systolic blood pressure 144 mm[Hg] Triston Riggs MD Work Phone: [facility] 06-12-2024 14:15-0500 Body height 182.9 cm Jose Antonio Hopper MD Work Phone: [facility] 06-12-2024 14:15-0500 Body mass index (BMI) [Ratio] 25.63 kg/m2 Jose Antonio Hopper MD Work Phone: [facility] 06-12-2024 14:15-0500 Body temperature 98.6 [degF] Jose Antonio Hopper MD Work Phone: [facility] 06-12-2024 14:15-0500 Body weight 85.73 kg Jose Antonio Hopper MD Work Phone: [facility] 06-12-2024 14:15-0500 Diastolic blood pressure 74 mm[Hg] Jose Antonio Hopper MD Work Phone: [facility] 06-12-2024 14:15-0500 Heart rate 83 /min Jose Antonio Hopper MD Work Phone: [facility] 06-12-2024 14:15-0500 Respiratory rate 16 /min Jose Antonio Hopper MD Work Phone: [facility] 06-12-2024 14:15-0500 SaO2% (BldA) [Mass fraction] 98 % Jose Antonio Hopper MD Work Phone: [facility] 06-12-2024 14:15-0500 Systolic blood pressure 118 mm[Hg] Jose Antonio Hopper MD Work Phone: [facility] 06-01-2024 12:22-0500 Body height 182.9 cm Steffen Vlila MD Work Phone: [facility] 06-01-2024 12:22-0500 Body mass index (BMI) [Ratio] 25.3 kg/m2 Steffen Villa MD Work Phone: [facility] 06-01-2024 12:22-0500 Body temperature 97.9 [degF] Steffen Villa MD Work Phone: [facility] 06-01-2024 12:22-0500 Body weight 84.6 kg Steffen Villa MD Work Phone: [facility] 06-01-2024 12:22-0500 Diastolic blood pressure 74 mm[Hg] Steffen Villa MD Work Phone: [facility] 06-01-2024 12:22-0500 Heart rate 78 /min Steffen Villa MD Work Phone: [facility] 06-01-2024 12:22-0500 Systolic blood pressure 136 mm[Hg] Steffen Villa MD Work Phone: [facility] 05-26-2024 16:01-0500 Body height 182.9 cm Sue Murillo MD Work Phone: [facility] 05-26-2024 16:01-0500 Body mass index (BMI) [Ratio] 25.23 kg/m2 Sue Murillo MD Work Phone: [facility] 05-26-2024 16:01-0500 Body temperature 97.2 [degF] Sue Murillo MD Work Phone: [facility] 05-26-2024 16:01-0500 Body weight 84.37 kg Sue Murillo MD Work Phone: [facility] 05-26-2024 16:01-0500 Diastolic blood pressure 83 mm[Hg] Sue Murillo MD Work Phone: [facility] 05-26-2024 16:01-0500 Heart rate 81 /min Sue Murillo MD Work Phone: [facility] 05-26-2024 16:01-0500 SaO2% (BldA) [Mass fraction] 98 % Sue Murillo MD Work Phone: [facility] 05-26-2024 16:01-0500 Systolic blood pressure 137 mm[Hg] Sue Murillo MD Work Phone: [facility] 05-18-2024 10:30-0500 Body mass index (BMI) [Ratio] 28.4 kg/m2 Louise Cesar MD Work Phone: [facility] 05-18-2024 10:30-0500 Body temperature 97.81 [degF] Louise Cesar MD Work Phone: [facility] 05-18-2024 10:30-0500 Body weight 95 kg Louise Cesar MD Work Phone: [facility] 05-18-2024 10:30-0500 Diastolic blood pressure 82 mm[Hg] Louise Cesar MD Work Phone: [facility] 05-18-2024 10:30-0500 Heart rate 76 /min Louise Cesar MD Work Phone: [facility] 05-18-2024 10:30-0500 SaO2% (BldA) [Mass fraction] 96 % Louise Cesar MD Work Phone: [facility] 05-18-2024 10:30-0500 Systolic blood pressure 136 mm[Hg] Louise Cesar MD Work Phone: [facility] 05-13-2024 10:27-0500 Body height 182.9 cm Jose Antonio Hopper MD Work Phone: [facility] 05-13-2024 10:27-0500 Body mass index (BMI) [Ratio] 28.35 kg/m2 Jose Antonio Hopper MD Work Phone: [facility] 05-13-2024 10:27-0500 Body temperature 98.6 [degF] Jose Antonio Hopper MD Work Phone: [facility] 05-13-2024 10:27-0500 Body weight 94.8 kg Jose Antonio Hopper MD Work Phone: [facility] 05-13-2024 10:27-0500 Diastolic blood pressure 78 mm[Hg] Jose Antonio Hopper MD Work Phone: [facility] 05-13-2024 10:27-0500 Heart rate 75 /min Jose Antonio Hopper MD Work Phone: [facility] 05-13-2024 10:27-0500 Respiratory rate 16 /min Jose Antonio Hopper MD Work Phone: [facility] 05-13-2024 10:27-0500 SaO2% (BldA) [Mass fraction] 98 % Jose Antonio Hopper MD Work Phone: [facility] 05-13-2024 10:27-0500 Systolic blood pressure 122 mm[Hg] Jose Antonio Hopper MD Work Phone: [facility] 04-28-2024 12:30-0500 Diastolic blood pressure 82 mm[Hg] Vic Ponce MD Work Phone: [facility] 04-28-2024 12:30-0500 Heart rate 85 /min Vic Ponce MD Work Phone: [facility] 04-28-2024 12:30-0500 Respiratory rate 21 /min Vic Ponce MD Work Phone: [facility] 04-28-2024 12:30-0500 SaO2% (BldA) [Mass fraction] 98 % Vic Ponce MD Work Phone: [facility] 04-28-2024 12:30-0500 Systolic blood pressure 117 mm[Hg] Vic Ponce MD Work Phone: [facility] 04-28-2024 12:02-0500 Body temperature 99.1 [degF] Vic Ponce MD Work Phone: [facility] 04-20-2024 11:48-0500 Body height 180.3 cm Sue Murillo MD Work Phone: [facility] 04-20-2024 11:48-0500 Body mass index (BMI) [Ratio] 29.18 kg/m2 Sue Murillo MD Work Phone: [facility] 04-20-2024 11:48-0500 Body weight 94.89 kg Sue Murillo MD Work Phone: [facility] 04-20-2024 11:48-0500 Diastolic blood pressure 80 mm[Hg] Sue Murillo MD Work Phone: [facility] 04-20-2024 11:48-0500 Heart rate 89 /min Sue Murillo MD Work Phone: [facility] 04-20-2024 11:48-0500 SaO2% (BldA) [Mass fraction] 97 % Sue Murillo MD Work Phone: [facility] 04-20-2024 11:48-0500 Systolic blood pressure 134 mm[Hg] Sue Murillo MD Work Phone: [facility] 03-30-2024 09:26-0400 Body height 180.3 cm Steffen Villa MD Work Phone: [facility] 03-30-2024 09:26-0400 Body mass index (BMI) [Ratio] 28.9 kg/m2 Steffen Villa MD Work Phone: [facility] 03-30-2024 09:26-0400 Body temperature 97.7 [degF] Steffen Villa MD Work Phone: [facility] 03-30-2024 09:26-0400 Body weight 94 kg Steffne Villa MD Work Phone: [facility] 03-30-2024 09:26-0400 Diastolic blood pressure 72 mm[Hg] Steffen Villa MD Work Phone: [facility] 03-30-2024 09:26-0400 Heart rate 92 /min Steffen Villa MD Work Phone: [facility] 03-30-2024 09:26-0400 Systolic blood pressure 141 mm[Hg] Steffen Villa MD Work Phone: [facility] 03-17-2024 13:48-0400 Body height 177.8 cm Ruma Oshea PA-C Work Phone: [facility] 03-17-2024 13:48-0400 Body mass index (BMI) [Ratio] 29.83 kg/m2 Ruma BOO-C Work Phone: [facility] 03-17-2024 13:48-0400 Body temperature 97.3 [degF] Ruma BOO-C Work Phone: [facility] 03-17-2024 13:48-0400 Body weight 94.3 kg Ruma Shultzvarella PA-C Work Phone: [facility] 03-17-2024 13:48-0400 Diastolic blood pressure 78 mm[Hg] Ruma Zavarella PA-C Work Phone: [facility] 03-17-2024 13:48-0400 Heart rate 88 /min Ruma Zavarella PA-C Work Phone: [facility] 03-17-2024 13:48-0400 Respiratory rate 16 /min Ruma Zavarella PA-C Work Phone: [facility] 03-17-2024 13:48-0400 SaO2% (BldA) [Mass fraction] 98 % Ruma Lexiivarella PA-C Work Phone: [facility] 03-17-2024 13:48-0400 Systolic blood pressure 132 mm[Hg] Ruma Lexiivarella PA-C Work Phone: [facility] 03-17-2024 10:24-0400 Body mass index (BMI) [Ratio] 27.8 kg/m2 Louise Cesar MD Work Phone: [facility] 03-17-2024 10:24-0400 Body weight 92.99 kg Louise Cesar MD Work Phone: [facility] 03-17-2024 10:24-0400 Diastolic blood pressure 84 mm[Hg] Louise Cesar MD Work Phone: [facility] 03-17-2024 10:24-0400 Heart rate 82 /min Louise Cesar MD Work Phone: [facility] 03-17-2024 10:24-0400 SaO2% (BldA) [Mass fraction] 98 % Louise Cesar MD Work Phone: [facility] 03-17-2024 10:24-0400 Systolic blood pressure 126 mm[Hg] Louise Cesar MD Work Phone: [facility] 02-12-2024 13:08-0400 Body height 182.9 cm Yehuda Dial MD Work Phone: [facility] 02-12-2024 13:08-0400 Body mass index (BMI) [Ratio] 27.67 kg/m2 Yehuda Dial MD Work Phone: [facility] 02-12-2024 13:08-0400 Body weight 92.53 kg Yehuda Dial MD Work Phone: [facility] 02-12-2024 13:08-0400 Diastolic blood pressure 72 mm[Hg] Yehuda Dial MD Work Phone: [facility] 02-12-2024 13:08-0400 Systolic blood pressure 124 mm[Hg] Yehuda Dial MD Work Phone: [facility] 02-12-2024 10:38-0400 Body height 182.9 cm Jose Antonio Hopper MD Work Phone: [facility] 02-12-2024 10:38-0400 Body mass index (BMI) [Ratio] 27.67 kg/m2 Jose Antonio Hopper MD Work Phone: [facility] 02-12-2024 10:38-0400 Body temperature 98.6 [degF] Jose Antonio Hopper MD Work Phone: [facility] 02-12-2024 10:38-0400 Body weight 92.53 kg Jose Antonio Hopper MD Work Phone: [facility] 02-12-2024 10:38-0400 Diastolic blood pressure 78 mm[Hg] Jose Antonio Hopper MD Work Phone: [facility] 02-12-2024 10:38-0400 Heart rate 86 /min Jose Antonio Hopper MD Work Phone: [facility] 02-12-2024 10:38-0400 Respiratory rate 18 /min Jose Antonio Hopper MD Work Phone: [facility] 02-12-2024 10:38-0400 SaO2% (BldA) [Mass fraction] 98 % Jose Antonio Hopper MD Work Phone: [facility] 02-12-2024 10:38-0400 Systolic blood pressure 108 mm[Hg] Jose Antonio Hopper MD Work Phone: [facility] 02-04-2024 13:32-0400 Body height 182.9 cm [facility] SHOE STICKS REPAIRER.STEAM TUNNEL FEEDER Work Phone: [facility] 02-04-2024 13:32-0400 Body mass index (BMI) [Ratio] 27.12 kg/m2 [facility] SHOE STICKS REPAIRER.STEAM TUNNEL FEEDER Work Phone: [facility] 02-04-2024 13:32-0400 Body temperature 97.11 [degF] [facility] SHOE STICKS REPAIRER.STEAM TUNNEL FEEDER Work Phone: [facility] 02-04-2024 13:32-0400 Body weight 90.7 kg [facility] SHOE STICKS REPAIRER.STEAM TUNNEL FEEDER Work Phone: [facility] 02-04-2024 13:32-0400 Diastolic blood pressure 69 mm[Hg] [facility] SHOE STICKS REPAIRER.STEAM TUNNEL FEEDER Work Phone: [facility] 02-04-2024 13:32-0400 Heart rate 75 /min [facility] SHOE STICKS REPAIRER.STEAM TUNNEL FEEDER Work Phone: [facility] 02-04-2024 13:32-0400 Respiratory rate 16 /min [facility] SHOE STICKS REPAIRER.STEAM TUNNEL FEEDER Work Phone: [facility] 02-04-2024 13:32-0400 SaO2% (BldA) [Mass fraction] 95 % [facility] SHOE STICKS REPAIRER.STEAM TUNNEL FEEDER Work Phone: [facility] 02-04-2024 13:32-0400 Systolic blood pressure 120 mm[Hg] Tita [place] SHOE STICKS REPAIRERFlorenceSTEAM TUNNEL FEEDER Work Phone: [facility] 01-15-2024 11:36-0400 Body height 182.9 cm Jose Antonio Hopper MD Work Phone: [facility] 01-15-2024 11:36-0400 Body mass index (BMI) [Ratio] 29.02 kg/m2 Jose Antonio Hopper MD Work Phone: [facility] 01-15-2024 11:36-0400 Body temperature 98.6 [degF] Jose Antonio Hopper MD Work Phone: [facility] 01-15-2024 11:36-0400 Body weight 97.07 kg Jose Antonio Hopper MD Work Phone: [facility] 01-15-2024 11:36-0400 Diastolic blood pressure 82 mm[Hg] Jose Antonio Hopper MD Work Phone: [facility] 01-15-2024 11:36-0400 Heart rate 80 /min Jose Antonio Hopper MD Work Phone: [facility] 01-15-2024 11:36-0400 Respiratory rate 16 /min Jose Antonio Hopper MD Work Phone: [facility] 01-15-2024 11:36-0400 SaO2% (BldA) [Mass fraction] 96 % Jose Antonio Hopper MD Work Phone: [facility] 01-15-2024 11:36-0400 Systolic blood pressure 128 mm[Hg] Jose Antonio Hopper MD Work Phone: [facility] 01-06-2024 15:28-0400 Body height 182.9 cm Yehuda Dial MD Work Phone: [facility] 01-06-2024 15:28-0400 Body mass index (BMI) [Ratio] 29.02 kg/m2 Yehuda Dial MD Work Phone: [facility] 01-06-2024 15:28-0400 Body weight 97.07 kg Yehuda Dial MD Work Phone: [facility] 01-06-2024 15:28-0400 Diastolic blood pressure 76 mm[Hg] Yehuda Dial MD Work Phone: [facility] 01-06-2024 15:28-0400 Systolic blood pressure 134 mm[Hg] Yehuda Dial MD Work Phone: [facility] 01-06-2024 13:36-0400 Body height 182.9 cm Ruma Zavarella PA-C Work Phone: [facility] 01-06-2024 13:36-0400 Body mass index (BMI) [Ratio] 29.08 kg/m2 Ruma Zavarella PA-C Work Phone: [facility] 01-06-2024 13:36-0400 Body temperature 97.2 [degF] Ruma Zavarella PA-C Work Phone: [facility] 01-06-2024 13:36-0400 Body weight 97.25 kg Ruma Zavarella PA-C Work Phone: [facility] 01-06-2024 13:36-0400 Diastolic blood pressure 73 mm[Hg] Ruma Zavarella PA-C Work Phone: [facility] 01-06-2024 13:36-0400 Heart rate 80 /min Ruma Zavarella PA-C Work Phone: [facility] 01-06-2024 13:36-0400 Respiratory rate 16 /min Ruma Zavarella PA-C Work Phone: [facility] 01-06-2024 13:36-0400 SaO2% (BldA) [Mass fraction] 96 % Ruma Zavarella PA-C Work Phone: [facility] 01-06-2024 13:36-0400 Systolic blood pressure 137 mm[Hg] Ruma Oshea PA-C Work Phone: [facility] 12-20-2023 13:33-0400 Body height 182.9 cm [facility] SHOE STICKS REPAIRER.[employer] T[employer] FEEDER Work Phone: [facility] 12-20-2023 13:33-0400 Body mass index (BMI) [Ratio] 31.33 kg/m2 [facility] SHOE STICKS REPAIRER.STE[employer] T[employer]NEL FEEDER Work Phone: [facility] 12-20-2023 13:33-0400 Body temperature 97.3 [degF] [facility] SHOE STICKS REPAIRER.STE[employer] T[employer]NEL FEEDER Work Phone: [facility] 12-20-2023 13:33-0400 Body weight 104.78 kg [facility] SHOE STICKS REPAIRER.STE[employer] T[employer]NEL FEEDER Work Phone: [facility] 12-20-2023 13:33-0400 Respiratory rate 18 /min [facility] SHOE STICKS REPAIRER.STEAM TUNNEL FEEDER Work Phone: [facility] 12-20-2023 13:33-0400 SaO2% (BldA) [Mass fraction] 100 % [facility] SHOE STICKS REPAIRER.STE[employer] T[employer]NEL FEEDER Work Phone: [facility] 12-13-2023 13:40-0400 Body height 182.9 cm [facility] SHOE STICKS REPAIRER.STE[employer] T[employer]NEL FEEDER Work Phone: [facility] 12-13-2023 13:40-0400 Body mass index (BMI) [Ratio] 31.1 kg/m2 [facility] SHOE STICKS REPAIRER.STE[employer] T[employer]NEL FEEDER Work Phone: [facility] 12-13-2023 13:40-0400 Body temperature 97.3 [degF] [facility] SHOE STICKS REPAIRER.STE[employer] T[employer]NEL FEEDER Work Phone: [facility] 12-13-2023 13:40-0400 Body weight 104.01 kg [facility] SHOE STICKS REPAIRER.STE[employer] T[employer] FEEDER Work Phone: [facility] 12-13-2023 13:40-0400 Diastolic blood pressure 80 mm[Hg] [facility] SHOE STICKS REPAIRER.STEAM T[employer]NEL FEEDER Work Phone: [facility] 12-13-2023 13:40-0400 Heart rate 68 /min [facility] SHOE STICKS REPAIRER.STEAM T[employer]NEL FEEDER Work Phone: [facility] 12-13-2023 13:40-0400 Respiratory rate 16 /min [facility] SHOE STICKS REPAIRER.STEAM T[employer]NEL FEEDER Work Phone: [facility] 12-13-2023 13:40-0400 SaO2% (BldA) [Mass fraction] 99 % [facility] SHOE STICKS REPAIRER.STEAM TUNNEL FEEDER Work Phone: [facility] 12-13-2023 13:40-0400 Systolic blood pressure 129 mm[Hg] [facility] SHOE STICKS REPAIRER.STEAM TUNNEL FEEDER Work Phone: [facility] 12-03-2023 13:21-0400 Body height 182.9 cm [facility] SHOE STICKS REPAIRER.STEAM TUNNEL FEEDER Work Phone: [facility] 12-03-2023 13:21-0400 Body mass index (BMI) [Ratio] 30.61 kg/m2 [facility] SHOE STICKS REPAIRER.STEAM T[employer]NEL FEEDER Work Phone: [facility] 12-03-2023 13:21-0400 Body temperature 97.81 [degF] [facility] SHOE STICKS REPAIRER.STEAM TUNNEL FEEDER Work Phone: [facility] 12-03-2023 13:21-0400 Body weight 102.38 kg [facility] SHOE STICKS REPAIRER.STEAM T[employer]NEL FEEDER Work Phone: [facility] 12-03-2023 13:21-0400 Diastolic blood pressure 78 mm[Hg] [facility] SHOE STICKS REPAIRER.STEAM TUNNEL FEEDER Work Phone: [facility] 12-03-2023 13:21-0400 Heart rate 74 /min [facility] SHOE STICKS REPAIRER.STEAM TUNNEL FEEDER Work Phone: [facility] 12-03-2023 13:21-0400 Respiratory rate 14 /min [facility] SHOE STICKS REPAIRER.STEAM TUNNEL FEEDER Work Phone: [facility] 12-03-2023 13:21-0400 SaO2% (BldA) [Mass fraction] 98 % [facility] SHOE STICKS REPAIRER.STEAM TUNNEL FEEDER Work Phone: [facility] 12-03-2023 13:21-0400 Systolic blood pressure 120 mm[Hg] [facility] SHOE STICKS REPAIRER.STEAM TUNNEL FEEDER Work Phone: [facility] 11-29-2023 14:28-0400 Body height 182.9 cm [facility] SHOE STICKS REPAIRER.STEAM T[employer]NEL FEEDER Work Phone: [facility] 11-29-2023 14:28-0400 Body mass index (BMI) [Ratio] 31.57 kg/m2 [facility] SHOE STICKS REPAIRER.STEAM T[employer]NEL FEEDER Work Phone: [facility] 11-29-2023 14:28-0400 Body temperature 97.3 [degF] [facility] SHOE STICKS REPAIRER.STEAM T[employer]NEL FEEDER Work Phone: [facility] 11-29-2023 14:28-0400 Body weight 105.6 kg [facility] SHOE STICKS REPAIRER.STEAM T[employer]NEL FEEDER Work Phone: [facility] 11-29-2023 14:28-0400 Diastolic blood pressure 68 mm[Hg] [facility] SHOE STICKS REPAIRER.STEAM T[employer]NEL FEEDER Work Phone: [facility] 11-29-2023 14:28-0400 Heart rate 71 /min [facility] SHOE STICKS REPAIRER.STE[employer] T[employer]NEL FEEDER Work Phone: [facility] 11-29-2023 14:28-0400 Respiratory rate 14 /min [facility] SHOE STICKS REPAIRER.STEAM T[employer] FEEDER Work Phone: [facility] 11-29-2023 14:28-0400 SaO2% (BldA) [Mass fraction] 98 % [facility] SHOE STICKS REPAIRER.STEAM TUNNEL FEEDER Work Phone: [facility] 11-29-2023 14:28-0400 Systolic blood pressure 121 mm[Hg] Tita [facility] SHOE STICKS REPAIRER.STEAM TUNNEL FEEDER Work Phone: [facility] 11-12-2023 15:33-0400 Body temperature 97 [degF] Roseann Rosario MD Work Phone: [facility] 11-12-2023 15:33-0400 Diastolic blood pressure 74 mm[Hg] Roseann Rosario MD Work Phone: [facility] 11-12-2023 15:33-0400 Heart rate 92 /min Roseann Rosario MD Work Phone: [facility] 11-12-2023 15:33-0400 Respiratory rate 24 /min Roseann Rosario MD Work Phone: [facility] 11-12-2023 15:33-0400 SaO2% (BldA) [Mass fraction] 97 % Roseann Rosario MD Work Phone: [facility] 11-12-2023 15:33-0400 Systolic blood pressure 143 mm[Hg] Roseann Rosario MD Work Phone: [facility] 11-12-2023 15:03-0400 Body height 182.9 cm Roseann Rosario MD Work Phone: [facility] 11-12-2023 15:03-0400 Body mass index (BMI) [Ratio] 29.84 kg/m2 Roseann Rosario MD Work Phone: [facility] 11-12-2023 15:03-0400 Body weight 99.79 kg Roseann Rosario MD Work Phone: [facility] 11-12-2023 13:22-0400 Body height 182.9 cm Ronaldo Flood MD, PhD Work Phone: [facility] 11-12-2023 13:22-0400 Body mass index (BMI) [Ratio] 29.84 kg/m2 Ronaldo Flood MD, PhD Work Phone: [facility] 11-12-2023 13:22-0400 Body temperature 97.3 [degF] oRnaldo Flood MD, PhD Work Phone: [facility] 11-12-2023 13:22-0400 Body weight 99.79 kg Ronaldo Flood MD, PhD Work Phone: [facility] 11-12-2023 13:22-0400 Diastolic blood pressure 88 mm[Hg] Ronaldo Flood MD, PhD Work Phone: [facility] 11-12-2023 13:22-0400 Heart rate 91 /min Ronaldo Flood MD, PhD Work Phone: [facility] 11-12-2023 13:22-0400 Respiratory rate 14 /min Ronaldo Flood MD, PhD Work Phone: [facility] 11-12-2023 13:22-0400 SaO2% (BldA) [Mass fraction] 94 % Ronaldo Flood MD, PhD Work Phone: [facility] 11-12-2023 13:22-0400 Systolic blood pressure 144 mm[Hg] Ronaldo Flood MD, PhD Work Phone: [facility] 10-24-2023 12:01-0400 Body height 182.9 cm Ronaldo Flood MD, PhD Work Phone: [facility] 10-24-2023 12:01-0400 Body mass index (BMI) [Ratio] 30.24 kg/m2 Ronaldo Flood MD, PhD Work Phone: [facility] 10-24-2023 12:01-0400 Body temperature 97.39 [degF] Ronaldo Flood MD, PhD Work Phone: [facility] 10-24-2023 12:01-0400 Body weight 101.15 kg Ronaldo Flood MD, PhD Work Phone: [facility] 10-24-2023 12:01-0400 Diastolic blood pressure 95 mm[Hg] Ronaldo Flood MD, PhD Work Phone: [facility] 10-24-2023 12:01-0400 Heart rate 82 /min Ronaldo Flood MD, PhD Work Phone: [facility] 10-24-2023 12:01-0400 Respiratory rate 14 /min Ronaldo Flood MD, PhD Work Phone: [facility] 10-24-2023 12:01-0400 SaO2% (BldA) [Mass fraction] 98 % Ronaldo Flood MD, PhD Work Phone: [facility] 10-24-2023 12:01-0400 Systolic blood pressure 162 mm[Hg] Ronaldo Flood MD, PhD Work Phone: [facility] 08-13-2023 13:47-0500 Body height 182.88 cm DO Calin Samsa Work Phone: [facility] 08-13-2023 13:47-0500 Body mass index (BMI) [Ratio] 32 kg/m2 DO Calin Samsa Work Phone: [facility] 08-13-2023 13:47-0500 Body weight 107.04 kg DO Calin Samsa Work Phone: [facility] 08-13-2023 13:47-0500 Diastolic blood pressure 81 mm[Hg] DO Calin Samsa Work Phone: [facility] 08-13-2023 13:47-0500 Heart rate 88 /min DO Calin Samsa Work Phone: [facility] 08-13-2023 13:47-0500 Respiratory rate 12 /min DO Calin Samsa Work Phone: [facility] 08-13-2023 13:47-0500 Systolic blood pressure 150 mm[Hg] DO Calin Samsa Work Phone: [facility] 07-23-2023 13:30-0500 Body height 182.88 cm Yuli Ball Other [employer] Other 07-23-2023 13:30-0500 Body mass index (BMI) [Ratio] 31.16 kg/m2 Yuli Ball Other [employer] Other 07-23-2023 13:30-0500 Body weight 104.24 kg Yuli Ball Other [employer] Other 07-23-2023 13:30-0500 Diastolic blood pressure 81 mm[Hg] Yuli Ball Other [employer] Other 07-23-2023 13:30-0500 Respiratory rate 12 /min Yuli Ball Other [employer] Other 07-23-2023 13:30-0500 Systolic blood pressure 133 mm[Hg] Yuli Ball Other [employer] Other 04-22-2023 10:00-0500 Body height 182.88 cm Yuli Ball Other [employer] Other 04-22-2023 10:00-0500 Body mass index (BMI) [Ratio] 30.78 kg/m2 Yuli Ball Other [employer] Other 04-22-2023 10:00-0500 Body weight 102.97 kg Yuli Ball Other [employer] Other 04-22-2023 10:00-0500 Diastolic blood pressure 111 mm[Hg] Yuli Ball Other [employer] Other 04-22-2023 10:00-0500 Respiratory rate 12 /min Yuli Ball Other [employer] Other 04-22-2023 10:00-0500 Systolic blood pressure 164 mm[Hg] Yuli Ball Other [employer] Other 02-11-2023 15:16-0400 Body height 182.9 cm Margie Edouard DO Work Phone: [facility] 02-11-2023 15:16-0400 Body mass index (BMI) [Ratio] 29.84 kg/m2 Margie Edouard DO Work Phone: [facility] 02-11-2023 15:16-0400 Body weight 99.79 kg Margie Edouard DO Work Phone: [facility] 01-16-2023 09:46-0400 Body height 182.9 cm Nena Huff DO Work Phone: [facility] 01-16-2023 09:46-0400 Body mass index (BMI) [Ratio] 29.84 kg/m2 Nena Huff DO Work Phone: [facility] 01-16-2023 09:46-0400 Body weight 99.79 kg Nena Huff DO Work Phone: [facility] 01-10-2023 10:00-0400 Body height 182.88 cm Yuli Ball Other [employer] Other 01-10-2023 10:00-0400 Body mass index (BMI) [Ratio] 30.11 kg/m2 Yuli Ball Other [employer] Other 01-10-2023 10:00-0400 Body weight 100.7 kg Yuli Ball Other [employer] Other 01-10-2023 10:00-0400 Diastolic blood pressure 90 mm[Hg] Yuli Ball Other [employer] Other 01-10-2023 10:00-0400 Respiratory rate 12 /min Yuli Ball Other [employer] Other 01-10-2023 10:00-0400 Systolic blood pressure 134 mm[Hg] Yuli Ball Other [employer] Other 11-19-2022 13:38-0400 Body height 182.9 cm Margie Steginsky DO Work Phone: [facility] 11-19-2022 13:38-0400 Body mass index (BMI) [Ratio] 30.24 kg/m2 Margie Steginsky DO Work Phone: [facility] 11-19-2022 13:38-0400 Body weight 101.15 kg Margie Steginsky DO Work Phone: [facility] 10-08-2022 13:20-0400 Body height 182.9 cm Grecia Munsona PA-C Work Phone: [facility] 10-08-2022 13:20-0400 Body mass index (BMI) [Ratio] 30.24 kg/m2 Grecia Munsona PA-C Work Phone: [facility] 10-08-2022 13:20-0400 Body weight 101.15 kg Grecia Munsona PA-C Work Phone: [facility] 08-28-2022 13:16-0400 Body height 182.9 cm Margie Steginsky DO Work Phone: [facility] 08-28-2022 13:16-0400 Body mass index (BMI) [Ratio] 30.24 kg/m2 Margie Steginsky DO Work Phone: [facility] 08-28-2022 13:16-0400 Body weight 101.15 kg Margie Steginsky DO Work Phone: [facility] 07-20-2020 14:44-0500 BMI (Body Mass Index) 30.24 kg/m2 Nena [facility] 07-20-2020 14:44-0500 Body weight 101.15 kg Nena [facility] 07-20-2020 14:44-0500 Height 182.9 cm Nena [facility] 07-01-2019 09:59-0500 BMI (Body Mass Index) 30.79 kg/m2 Nena [facility] 07-01-2019 09:59-0500 Body weight 102.[address] [facility] 07-01-2019 09:59-0500 Height 182.[address] [facility] 07-30-2017 11:30-0500 BMI (Body Mass Index) 30.79 kg/m2 Karthik Calloway [facility] Work Phone: 07-30-2017 11:30-0500 Height 182.[address] [facility] Work Phone: 07-30-2017 11:30-0500 Weight 102.[address] [facility] Work Phone: 01-29-2017 12:07-0400 BMI (Body Mass Index) 29.97 kg/m2 Karthik Calloway [facility] Work Phone: 01-29-2017 12:07-0400 Height 182.[address] [facility] Work Phone: 01-29-2017 12:07-0400 Weight 100.[address] [facility] Work Phone: Encounters Encounter Date Encounter Type Care Provider Facility Start: 03-29-2025 ambulatory LOUISE CESAR Facili ty:[facility] Start: 03-26-2025 End: 03-26-[address] [facility] Start: 03-25-2025 End: 03-25-2025 Bamboo flowsdagoberto Chowdary DPM Work Phone[facility] Start: 03-25-2025 End: 03-25-2025 Bamboo flowsheet Jamel Chowdary DPM Work Phone: [facility] [place] [facility] Start: 03-25-2025 End: 03-25-2025 ambulatory JAMEL CHOWDARY Not Available Start: 03-25-2025 End: 03-25-2025 Office outpatient visit 15 minutes Jamel Chowdary DPM Work Phone: [facility] Comment on above: Pressure injury of t oe of left foot, stage 2 ([facility]) (Primary Dx); Cellulitis of left foot; Pain in toe of left foot; Difficulty walking Start: 03-24-2025 End: 03-25-2025 ambulatory [facility] Facility:[facility] Start: 03-24-2025 ambulatory Aure Rao ty:[facility] Start: 03-17-2025 End: 03-17-2025 Bamboo flowsheet Jamel Chowdary DPM Work Phone: [facility] Start: 03-17-2025 End: 03-17-2025 Bamboo flowsheet Jamel Chowdary DPM Work Phone: [facility] Start: 03-17-2025 End: 03-17-2025 Office outpatient visit 15 minutes Jamel Chowdary DPM Work Phone: [facility] Comment on above: Pressure injury of t oe of left foot, stage 2 ([facility]) (Primary Dx); Cellulitis of left foot; Pain in toe of left foot; Difficulty walking Start: 03-17-2025 End: 03-17-2025 ambulatory JAMEL CHOWDARY Not Available Start: 03-16-2025 End: 03-17-2025 ambulatory [facility] Facility:[facility] Start: 03-12-2025 End: 03-12-2025 Bamboo flowsheet Jamel Chowdary DPM Work Phone: [facility] Start: 03-12-2025 End: 03-12-2025 Bamboo flowsheet Jamel Chowdary DPM Work Phone: [facility] Start: 03-12-2025 End: 03-12-2025 ambulatory JAMEL CHOWDARY Not Available Start: 03-12-2025 End: 03-12-2025 Office outpatient new 30 minutes Jamel Chowdary DPM Work Phone: [facility] Comment on above: Pressure injury of t oe of left foot, stage 2 (CMS-HCC) (Primary Dx); Cellulitis of left foot; Pain in toe of left foot; Difficulty walking Start: 03-12-2025 End: 03-12-2025 ambulatory JAMEL CHOWDARY Not Available Start: 03-05-2025 End: 03-05-2025 ambulatory JOSE ANTONIO HOPPER Facility:[facility] Start: 02-25-2025 End: 02-25-2025 Patient encounter procedure Zabrina Suarez MD Work Phone: Kidney Medicine [facility] Comment on above: FLOYD (acute kidney in jury) (Primary Dx); Screening for genitourinary condition; Elevated serum creatinine; Decreased GFR; Generalized edema; Pleural effusion, not elsewhere classified Start: 02-25-2025 End: 03-01-2025 ambulatory Zabrina Suarez MD Work Phone: Kidney [facility] Start: 02-19-2025 ambulatory MARLYN HOOPER Facility:[facility] Start: 02-19-2025 End: 02-19-2025 Subsequent hospital visit by physician Main A21 5 Work Phone: Radiology Comment on above: Other ascites [R18.8 ] Start: 02-17-2025 End: 02-17-2025 ambulatory Marlyn Hooper APRN.[employer] Work Phone: Gastroenterology Comment on above: Willie Raymundo. [birth year] Start: 02-11-2025 End: 02-11-2025 ambulatory JOSE ANTONIO HOPPER Facility:[facility] Start: 02-02-2025 End: 02-02-2025 ambulatory ISAIAH MURRY Facility:[facility] Start: 01-26-2025 End: 01-26-2025 Patient encounter procedure Jose Antonio Hopper MD Work Phone: Jose Antonio Hopper MD Comment on above: Metabolic encephalop athy (Primary Dx); Stage 3a chronic kidney disease (HCC); Primary hypertension; Lymphocytic colitis; Generalized edema; Orthostatic hypotension; Cramp and spasm; Urge incontinence Start: 01-25-2025 End: 01-25-2025 ambulatory JOSE ANTONIO HOPPER Facility:[facility] Start: 01-19-2025 End: 02-02-2025 Refill Jose Antonio Hopper MD Work Phone: Jose Antonio Hopper MD Start: 01-12-2025 End: 01-12-2025 Refill Jose Antonio Hopper MD Work Phone: Jose Antonio Hopper MD Comment on above: Refill Request Start: 01-11-2025 End: 01-11-2025 Patient encounter procedure Triston Riggs MD Work Phone: Pulmonary Medicine Comment on above: Pleural effusion (Pr imary Dx); Pleuritis; Pericardial effusion (noninflammatory) (HCC); History of pericarditis; Lymphocytic colitis Start: 01-11-2025 End: 01-11-2025 ambulatory TRISTON RIGGS Facility:[facility] Start: 01-08-2025 End: 01-08-2025 Subsequent hospital visit by physician General Keron Ahumada Mc Work Phone: Radiology Comment on above: Pleural effusion, no t elsewhere classified [J90] Start: 01-08-2025 End: 01-08-2025 ambulatory TRISTON RIGGS Facility:[facility] Start: 12-22-2024 End: 12-22-2024 Telemedicine consultation with patient Marlyn Hooper APRNFlorenceSTEAM TUNNEL FEEDER Work Phone: Gastroenterology Start: 12-22-2024 End: 12-22-2024 ambulatory Marlyn Hooper [employer] Work Phone: Gastroenterology Comment on above: Elevated serum creat inine (Primary Dx); Elevated alkaline phosphatase level Start: 12-16-2024 End: 12-16-2024 ambulatory ZAC MENDIOLA Facility:[facility] Start: 12-15-2024 End: 12-15-2024 Patient encounter procedure Jose Antonio Hopper MD Work Phone: Jose Antonio Hopper MD Comment on above: Mixed connective tis freedom disease (HCC) (Primary Dx); Urge incontinence; Hypokalemia; Recurrent 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; Muscle cramps; Hiatal hernia Start: 11-25-2024 End: 11-25-2024 Refill Jose Antonio Hopper MD Work Phone: Jose Antonio Hopper MD Comment on above: Refill Request Start: 11-24-2024 End: 01-24-2025 Follow-up encounter Zac Mendiola MD Work Phone: Cardiology Start: 11-23-2024 End: 11-23-2024 Telephone encounter Ronaldo Flood MD, PhD Work Phone: [facility] Comment on above: Received Outside Med ical Records Start: 11-23-2024 End: 11-23-2024 Patient encounter procedure Triston Riggs MD Work Phone: Pulmonary Medicine Comment on above: Pleural effusion (Pr imary Dx); Pleuritis; Pericardial effusion (noninflammatory) (HCC); Lymphocytic colitis; Other ascites Start: 11-23-2024 End: 11-23-2024 Subsequent hospital visit by physician Xr Chest Main A21 Radiology Comment on above: Pleural effusion, no t elsewhere classified [J90] Hepatomegaly [R16.0] Start: 11-23-2024 End: 11-24-2024 ambulatory UNKNOWN PROVIDER Facility:[facility] Start: 11-20-2024 End: 11-20-2024 Office outpatient new 45 minutes Zac Mendiola MD Work Phone: Cardiology Comment on above: Extremity cyanosis ( Primary Dx) Start: 11-20-2024 End: 11-20-2024 ambulatory ZAC MENDIOLA Facility:[facility] Start: 11-19-2024 End: 11-19-2024 ambulatory TRISTON RIGGS Facility:[facility] Start: 11-19-2024 End: 11-19-2024 Patient encounter procedure Triston Riggs MD Work Phone: Pulmonary Medicine Comment on above: Pleural effusion (Pr imary Dx) Start: 11-19-2024 End: 11-19-2024 ambulatory TRISTON RIGGS Facility:[facility] Start: 11-19-2024 End: 11-19-2024 Subsequent hospital visit by physician Xr Chest Main Qb1 Radiology Comment on above: Pleural effusion [J9 0] Start: 11-17-2024 End: 01-01-2025 Telephone encounter Amanda (Pss) Cecilia Pulmonary Medicine Comment on above: Patient Question Start: 11-17-2024 End: 11-17-2024 ambulatory JOSE ANTONIO HOPPER Facility:[facility] Start: 11-13-2024 End: 11-13-2024 Patient encounter procedure Jose Antonio Hopper MD Work Phone: Jose Antonio Hopper MD Comment on above: Anasarca (Primary Dx ); Recurrent 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; Hepatomegaly; Hiatal hernia; Chronic gastritis without bleeding, unspecified gastritis type; Hypomagnesemia Start: 11-12-2024 End: 11-12-2024 Emergency department patient visit YULI MARISCAL Facility:[facility] Start: 11-05-2024 End: 11-05-2024 ambulatory YULI MARISCAL Facility:[facility] Start: 11-04-2024 ambulatory YULI MARISCAL Facilit :[facility] Start: 11-03-2024 End: 11-13-2024 Follow-up encounter Xiomara Ly APRN.[employer]ED[employer] Work Phone: Gastroenterology Start: 10-31-2024 End: 12-31-2024 Follow-up encounter Xiomara Ly APRN.[employer] T[employer] FEEDER Work Phone: Gastroenterology Start: 10-27-2024 End: 10-28-2024 Orders Only Vilma Graff MA Pulmonary Medicine Comment on above: Pleural effusion (Pr imary Dx) Start: 10-23-2024 End: 10-23-2024 Telephone encounter Ronaldo Flood MD, PhD Work Phone: Thoracic Clinic Comment on above: Received Outside Med ical Records Start: 10-23-2024 End: 10-23-2024 Subsequent hospital visit by physician [facility] Work Phone: [facility] Radiology Ultrasound Comment on above: Elevated alkaline ph osphatase level [R74.8] Start: 10-23-2024 End: 10-23-2024 ambulatory YULI MARISCAL Facility:[facility] Start: 10-20-2024 End: 10-21-2024 Follow-up encounter Xiomara Ly APRN.[employer] T[employer] FEEDER Work Phone: Gastroenterology Start: 10-19-2024 End: 10-19-2024 Refill Jose Antonio Hopper MD Work Phone: Jose Antonio Hopper MD Comment on above: Refill Request Start: 10-15-2024 End: 12-15-2024 Follow-up encounter Xiomara Ly APRN.[employer] FEEDER Work Phone: Gastroenterology Start: 10-15-2024 End: 10-15-2024 Patient encounter procedure Zabrina Suarez MD Work Phone: Kidney [facility] Comment on above: FLOYD (acute kidney in jury) (Primary Dx); Elevated BUN; Elevated serum creatinine; Decreased GFR; Lymphocytic colitis; Pleural effusion, not elsewhere classified; Generalized edema Start: 10-15-2024 End: 10-19-2024 ambulatory Zabrina Suarez MD Work Phone: Kidney [facility] Comment on above: Serositis (HCC) (Gemini maureen Dx) Start: 10-14-2024 End: 10-14-2024 ambulatory XIOMARA LY Facility:[facility] Start: 10-14-2024 End: 10-14-2024 ambulatory XIOMARA LY Facility:[facility] Start: 10-14-2024 End: 10-15-2024 Patient encounter procedure Xiomara Ly APRN.[employer] T[employer] FEEDER Work Phone: Gastroenterology Comment on above: Elevated BUN (Primar y Dx); Elevated serum creatinine; Decreased GFR; Elevated alkaline phosphatase level Pleural effusion (Pr imary Dx) Start: 10-14-2024 End: 10-14-2024 ambulatory KATERINA CONTRERAS Facility:[facility] Start: 10-13-2024 ambulatory LOUISE Rao ty:[facility] Start: 10-13-2024 End: 10-13-2024 Subsequent hospital visit by physician General Keron Ahumada Mc Work Phone: Radiology Comment on above: Cough, unspecified t ype [R05.9] Start: 10-02-2024 End: 10-02-2024 Chart abstracting Katerina Conterras PA-C Work Phone: Pulmonary Medicine Start: 10-02-2024 End: 10-02-2024 Telephone encounter Hui Ivey CARD LACER Admitting Comment on above: Appointment Confirma tion Start: 10-02-2024 End: 10-16-2024 ambulatory Sue Murillo MD Work Phone: Gastroenterology Comment on above: Willie Raymundo 1 Willie Raymundo 1950 Start: 09-25-2024 End: 09-25-2024 ambulatory AMNA CHINCHILLA Facility:[facility] Start: 09-25-2024 End: 09-25-2024 Subsequent hospital visit by physician Shay Dennis MD Work Phone: Gastroenterology Comment on above: Esophageal dysphagia [R13.19] Start: 09-23-2024 End: 09-23-2024 Telephone encounter Ronaldo Flood MD, PhD Work Phone: Thoracic Clinic Comment on above: Received Outside Med ical Records Start: 09-18-2024 End: 09-18-2024 ambulatory Melinda Calderón RNstallion keeper Start: 09-14-2024 End: 09-14-2024 Telephone encounter Amanda ([facility]) [facility] Pulmonary Medicine Comment on above: Patient Update Start: 09-11-2024 End: 09-11-2024 ambulatory JOSE ANTONIO ISAKOV Facility:[facility] Start: 09-11-2024 End: 09-11-2024 ambulatory [facility] Work Phone: Start: 09-11-2024 End: 09-11-2024 Patient encounter procedure [facility] Work Phone: Start: 09-08-2024 End: 09-08-2024 ambulatory ROSEANN ROSARIO Facility:[facility] Start: 09-04-2024 End: 09-04-2024 Telephone encounter Deitre Angel CT [facility] [id number] Start: 09-04-2024 End: 09-04-2024 Patient encounter procedure Jose Antonio Hopper MD Work Phone: Jose Antonio Hopper MD Comment on above: 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); Hypokalemia; Lymphocytic colitis; Anemia, unspecified type; Chronic insomnia Start: 09-04-2024 End: 09-04-2024 ambulatory JAMES ENAMORADO Facility:[facility] Start: 09-03-2024 End: 09-03-2024 ambulatory JOSE ANTONIO HOPPER Facility:[facility] Start: 09-03-2024 Non-patient / Non-visit [facility] Work Phone: Start: 09-02-2024 End: 09-02-2024 Telephone encounter Della Barragan APRN.[facility] Work Phone: Admitting Comment on above: Post Dc Program Call - Needs Attn Appointment (Thorace ntesis) Start: 09-02-2024 Non-patient / Non-visit [facility] Work Phone: Start: 09-01-2024 End: 09-01-2024 Orders Only Jose Antonio Hopper MD Work Phone: Jose Antonio Hopper MD Comment on above: 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) Start: 08-31-2024 Non-patient / Non-visit [facility] Work Phone: Start: 08-30-2024 Non-patient / Non-visit [facility] Work Phone: Start: 08-28-2024 Non-patient / Non-visit [facility] Work Phone: Start: 08-28-2024 End: 08-28-2024 Orders Only Jose Antonio Hopper MD Work Phone: Jose Antonio Hopper MD Comment on above: 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) Start: 08-27-2024 End: 08-27-2024 Bamboo flowsheet Raji Bynum MD Work Phone: [facility] Start: 08-27-2024 End: 08-27-2024 Bamboo flowsheet Raji Bynum MD Work Phone: [facility] Start: 08-27-2024 End: 08-27-2024 Office outpatient visit 15 minutes Raji Bynum MD Work Phone: [facility] Comment on above: Seborrheic keratosis (Primary Dx); Actinic keratosis; Stasis dermatitis of both legs; Lentigines Start: 08-27-2024 End: 08-27-2024 ambulatory RAJI BYNUM Not Available Start: 08-26-2024 End: 08-26-2024 Follow-up encounter Sue Murillo MD Work Phone: Gastroenterology Start: 08-24-2024 Non-patient / Non-visit [facility] Work Phone: Start: 08-24-2024 End: 08-24-2024 ambulatory JOSE ANTONIO HOPPER Facility:[facility] Start: 08-24-2024 End: 08-24-2024 Office outpatient visit 25 minutes Sue Murillo MD Work Phone: Gastroenterology Comment on above: Lymphocytic colitis (Primary Dx); Esophageal dysphagia Start: 08-24-2024 End: 08-24-2024 ambulatory SUE MURILLO Facility:[facility] Start: 08-21-2024 End: 08-21-2024 Telephone encounter Della Barragan APRN.[employer] Work Phone: Cardiology Comment on above: Post Dc Program Call - Needs Attn Refill Request Start: 08-18-2024 End: 08-18-2024 ambulatory DELLA BARRAGAN Facility:[facility] Start: 08-18-2024 End: 08-18-2024 Patient encounter procedure Della Barragan APRN.[employer] T[employer] FEEDER Work Phone: Thoracic Clinic Comment on above: Pleural effusion (Pr imary Dx) Start: 08-13-2024 Non-patient / Non-visit [facility] Work Phone: Start: 08-13-2024 End: 08-13-2024 ambulatory TRISTON RIGGS Facility:[facility] Start: 08-13-2024 End: 08-13-2024 Subsequent hospital visit by physician Xr [facility] [place] Radiology Comment on above: Pleural effusion [J9 [...] Patient Update Patient Question Patient Request Start: 08-10-2024 End: 10-28-2024 Telephone encounter Amanda (Pss) [facility] Pulmonary Medicine Comment on above: Patient Question Start: 08-04-2024 End: 08-04-2024 Telephone encounter Ronaldo Flood MD, PhD Work Phone: Thoracic Clinic Comment on above: Received Outside Med ical Records Start: 08-03-2024 End: 10-28-2024 Telephone encounter Amanda (Pss) Cecilia Pulmonary Medicine Comment on above: Patient Update Start: 07-29-2024 End: 07-29-2024 Orders Only Jose Antonio Hopper MD Work Phone: Jose Antonio Hopper MD Comment on above: Pleural effusion (Pr imary Dx) Start: 07-29-2024 Non-patient / Non-visit [facility] Work Phone: Start: 07-24-2024 End: 07-24-2024 Orders Only Jose Antonio Hopper MD Work Phone: Jose Antonio Hopper MD Comment on above: Fatigue, unspecified type (Primary Dx) Start: 07-21-2024 End: 07-21-2024 Patient encounter procedure Jose Antonio Hopper MD Work Phone: Jose Antonio Hopper MD Comment on above: Pleural effusion (Pr imary Dx); Muscle cramps; Anasarca; Hypomagnesemia; Lymphocytic colitis Start: 07-20-2024 Non-patient / Non-visit [facility] Work Phone: Start: 07-20-2024 End: 07-20-2024 ambulatory TRISTON RIGGS Facility:[facility] Start: 07-20-2024 End: 07-20-2024 Patient encounter procedure Triston Riggs MD Work Phone: Pulmonary Medicine Comment on above: Pleural effusion (Pr imary Dx); Pleuritis; Pericardial effusion (noninflammatory); Chronic cough Start: 07-20-2024 End: 07-20-2024 ambulatory KATERINA CONTRERAS Facility:[facility] Start: 07-20-2024 End: 07-20-2024 Subsequent hospital visit by physician Xr Chest Main Qb1 Radiology Comment on above: Pleural effusion [J9 0] Start: 07-17-2024 End: 07-17-2024 Chart abstracting Katerina Contreras PA-C Work Phone: Pulmonary Medicine Start: 07-16-2024 End: 07-16-2024 Telephone encounter Triston Riggs MD Work Phone: Pulmonary Medicine Comment on above: Orders Start: 07-16-2024 End: 07-16-2024 ambulatory TRISTON RIGGS Facility:[facility] Start: 07-14-2024 End: 07-14-2024 Patient encounter procedure [facility] Work Phone: Start: 07-10-2024 End: 07-13-2024 James Edouard DO Work Phone: [facility] Start: 07-08-2024 End: 07-09-2024 Chart abstracting Katerina Contreras PA-C Work Phone: Pulmonary Medicine Start: 06-29-2024 End: 06-29-2024 Telephone encounter Benny Ortiz [facility] [id number] Comment on above: Appointment Start: 06-22-2024 End: 06-22-2024 Orders Only Katerina Contreras PA-C Work Phone: Pulmonary Medicine Comment on above: Pleural effusion (Pr imary Dx) Pleural effusion (Pr imary Dx); Pleuritis; Lymphocytic colitis; Pericardial effusion (noninflammatory); Interstitial pulmonary disease (HCC) Start: 06-12-2024 End: 06-12-2024 Patient encounter procedure Jose Antonio Hopper MD Work Phone: Jose Antonio Hopper MD Comment on above: 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); Primary hypertension; Lymphocytic colitis; Elevated C-reactive protein (CRP); Exocrine pancreatic insufficiency; Hypokalemia; Anasarca Start: 06-01-2024 End: 06-01-2024 ambulatory STEFFEN VILLA Facility:[facility] Start: 06-01-2024 End: 06-01-2024 Office outpatient visit 25 minutes Steffen Villa MD Work Phone: Rheumatology Comment on above: Pleural effusion (Pr imary Dx); Elevated sed rate; Elevated C-reactive protein (CRP) Start: 05-29-2024 End: 05-29-2024 ambulatory YULI MARISCAL Facility:[facility] Start: 05-26-2024 End: 05-26-2024 ambulatory SUE MURILLO Facility:[facility] Start: 05-26-2024 End: 05-26-2024 Office outpatient visit 25 minutes Sue Murillo MD Work Phone: Gastroenterology Comment on above: Lymphocytic colitis (Primary Dx) Start: 05-25-2024 End: 05-25-2024 Telephone encounter Marcy Longoria [facility] Admitting Start: 05-18-2024 End: 05-18-2024 ambulatory LOUISE CESAR Facility:[facility] Start: 05-18-2024 End: 05-18-2024 Subsequent hospital visit by physician Rolan [facility] [place] Work Phone: Radiology Comment on above: Pleural effusion [J9 0] Start: 05-18-2024 End: 05-18-2024 ambulatory LOUISE CESAR Facility:[facility] Start: 05-18-2024 End: 05-18-2024 Patient encounter procedure Louise Cesar MD Work Phone: Pulmonary Medicine Comment on above: Pleural effusion (Pr imary Dx); Chronic cough; Lung nodule; Lymphocytic colitis Start: 05-13-2024 End: 05-13-2024 Patient encounter procedure Jose Antonio Hopper MD Work Phone: Jose Antonio Hopper MD Comment on above: Recurrent pleural ef [...] Orders Only Sue Murillo MD Work Phone: [facility] - ENDO Start: 04-28-2024 [facility] Start: 04-28-2024 End: 04-28-2024 Subsequent hospital visit by physician Vic Ponce MD Work Phone: [facility] - ENDO Comment on above: Diarrhea, unspecifie d type [R19.7] Start: 04-28-2024 ambulatory BOBBY Manuel y:[facility] Start: 04-22-2024 End: 04-22-2024 ambulatory SUE CLARKR Facility:[facility] Start: 04-22-2024 End: 04-22-2024 Subsequent hospital visit by physician Ct [facility] Berta (I-Stat) CT Scan [facility] Comment on above: Diarrhea, unspecifie d type [R19.7] Start: 04-20-2024 End: 04-20-2024 ambulatory SUE GIOVANNIEER Facility:[facility] Start: 04-20-2024 End: 04-20-2024 Office outpatient new 45 minutes Sue Murillo MD Work Phone: Gastroenterology Comment on above: Abdominal pain, unsp ecified abdominal location (Primary Dx); Diarrhea, unspecified type Start: 04-20-2024 End: 04-20-2024 ambulatory SUE NASR Facility:[facility] Start: 03-30-2024 End: 03-30-2024 Office outpatient new 60 minutes Steffen Villa MD Work Phone: Rheumatology Comment on above: Pleural effusion (Pr imary Dx); Elevated sed rate; Elevated C-reactive protein (CRP); Diarrhea, unspecified type Start: 03-26-2024 ambulatory UDDALAK ARSENIO Facili ty:[facility] Start: 03-26-2024 End: 03-26-2024 Subsequent hospital visit by physician [facility] Work Phone: Cardiovascular Testing Comment on above: Pericarditis, unspec ified chronicity, unspecified type [I31.9] Start: 03-17-2024 ambulatory UDDALAK ARSENIO Facili ty:[facility] Start: 03-17-2024 End: 03-17-2024 Subsequent hospital visit by physician Radio Ct Scan [place] Work Phone: Radiology Comment on above: Interstitial pulmona ry disease (HCC) [J84.9] Start: 03-17-2024 End: 03-17-2024 ambulatory UDDALAK ARSENIO Pulmonary Lab Comment on above: Spirometry Start: 03-17-2024 End: 03-17-2024 Patient encounter procedure Ruma Oshea PA-C Work Phone: Thoracic Surgery Comment on above: Pleural effusion (Pr imary Dx) Start: 03-17-2024 End: 03-17-2024 Patient encounter procedure Louise Cesar MD Work Phone: PULMONOLOGY [facility] Comment on above: Chronic cough (Prima ry Dx); Pleural effusion; Pleuritis; Interstitial pulmonary disease (HCC); Pericardial effusion (noninflammatory); Pericarditis, unspecified chronicity, unspecified type Start: 03-17-2024 End: 03-17-2024 Subsequent hospital visit by physician Xr [place] [facility] XRAY / RADIOLOGY [facility] Comment on above: Chronic bronchitis, unspecified chronic bronchitis type (HCC) [J42] Start: 03-17-2024 End: 03-17-2024 Patient encounter procedure Pulm Fct Lab1 - [place] PULMONOLOGY LAB [facility] Start: 03-17-2024 End: 03-17-2024 ambulatory LOUISE CESAR PULMONOLOGY LAB [facility] Comment on above: Spirometry Start: 03-03-2024 End: 03-03-2024 Telephone encounter Ronaldo Flood MD, PhD Work Phone: Cardiology Comment on above: Post Dc Program Call - Needs Attn Patient Update Start: 02-21-2024 End: 02-21-2024 Telephone encounter Ronaldo Flood MD, PhD Work Phone: Thoracic Clinic Comment on above: Patient Update (Pleu lindsey output ) Start: 02-12-2024 End: 02-12-2024 Patient encounter procedure Yehuda Dial MD Work Phone: Yehuda Dial MD Comment on above: 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); History of pericarditis Start: 02-12-2024 End: 02-12-2024 Patient encounter procedure Jose Antonio Hopper MD Work Phone: Jose Antonio Hopper MD Comment on above: 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); Primary hypertension; Pleural effusion; Chronic cough; Anemia, unspecified type; Hypomagnesemia Start: 02-04-2024 End: 02-04-2024 Patient encounter procedure [facility] SHOE STICKS REPAIRER.STEAM TUNNEL FEEDER Work Phone: Thoracic Surgery Comment on above: Pleural effusion (Pr imary Dx); Elevated sed rate; Elevated C-reactive protein (CRP) Start: 02-04-2024 End: 02-04-2024 ambulatory [facility] Facility:[facility] Start: 02-04-2024 End: 02-04-2024 Subsequent hospital visit by physician Xr [facility] RADIO [facility] Comment on above: Pleural effusion [J9 0] Start: 01-28-2024 End: 01-28-2024 Orders Only Nena Huff DO Work Phone: [facility] Start: 01-22-2024 Admission to [facility] SHOE STICKS REPAIRER.STEAM TUNNEL FEEDER Work Phone: Thoracic Surgery Comment on above: Willie Raymundo - Romain jimenez Start: 01-22-2024 ambulatory [facility] SHOE STICKS REPAIRER.STEAM TUNNEL FEEDER Work Phone: Thoracic Surgery Start: 01-20-2024 Telephone encounter Ronaldo mercado MD, PhD Work Phone: Thoracic Clinic Comment on above: [facility] Start: 01-15-2024 End: 01-15-2024 Patient encounter procedure Jose Antonio Hopper MD Work Phone: Jose Antonio Hopper MD Comment on above: 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); Chronic cough; Elevated C-reactive protein (CRP); Elevated sedimentation rate Start: 01-06-2024 End: 01-06-2024 Patient encounter procedure Ruma Oshea PA-C Work Phone: Thoracic Surgery Comment on above: Pleural effusion (Pr imary Dx) Recurrent pleural ef fusion (Primary Dx); History of pericarditis; Chronic cough Start: 01-06-2024 End: 01-06-2024 ambulatory RUMA OSHEA Facility:[facility] Start: 01-06-2024 End: 01-06-2024 Subsequent hospital visit by physician Xr [facility] Comment on above: 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 [J90] Start: 12-20-2023 End: 12-26-2023 Evaluation and management of inpatient YEHUDA DIAL Facility:[facility] Start: 12-20-2023 End: 12-20-2023 [facility]PA[facility].STE[employer] TUNNEL FEEDER Work Phone: Thoracic Surgery Comment on above: Follow-up examinatio n after lung surgery (Primary Dx); Pleural effusion; Bilateral lower extremity edema; Anasarca; Nausea vomiting and diarrhea Start: 12-20-2023 End: 12-20-2023 ambulatory [facility] Facility:[facility] Start: 12-20-2023 End: 12-20-2023 Subsequent hospital visit by physician Xr [facility] Comment on above: Pleural effusion [J9 0] Start: 12-17-2023 Telephone encounter Ronaldo mercado MD, PhD Work Phone: Cardiology Start: 12-13-2023 End: 12-13-2023 Patient encounter procedure [facility] SHOE STICKS REPAIRER.STEAM TUNNEL FEEDER Work Phone: Thoracic Surgery Comment on above: Pleural effusion (Pr imary Dx) Start: 12-13-2023 End: 12-13-2023 ambulatory [facility] Facility:[facility] Start: 12-13-2023 End: 12-13-2023 Subsequent hospital visit by physician Xr [facility] Comment on above: Pleural effusion [J9 0] Start: 12-03-2023 Telephone encounter Tita alvarez SHOE STICKS REPAIRER.STEAM TUNNEL FEEDER Work Phone: Thoracic Clinic Comment on above: Schedule and Confirm Appointments Start: 12-03-2023 End: 12-03-2023 [facility] SHOE STICKS REPAIRER.STEAM TUNNEL FEEDER Work Phone: Thoracic Surgery Comment on above: Follow-up examinatio n after lung surgery (Primary Dx); Pleural effusion Start: 12-03-2023 End: 12-03-2023 ambulatory [facility] Facility:[facility] Start: 12-03-2023 End: 12-03-2023 Subsequent hospital visit by physician Xr [facility] RADIO [facility] Comment on above: Follow-up exam [Z09] Start: 11-29-2023 End: 11-29-2023 Orders Only [facility] SHOE STICKS REPAIRER.STEAM TUNNEL FEEDER Work Phone: Thoracic Clinic Comment on above: Follow-up exam (Prim suma Dx) Surgery follow-up [Z 09] Follow-up examinatio n after lung surgery (Primary Dx); Pleural effusion Start: 11-24-2023 Telephone encounter Ronaldo mercado MD, PhD Work Phone: Thoracic Surgery Start: 11-12-2023 End: 11-12-2023 Subsequent hospital visit by physician Roseann Rosario MD Work Phone: Admitting Comment on above: 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] Start: 11-12-2023 End: 11-12-2023 Patient encounter procedure Ronaldo Flood MD, PhD Work Phone: Thoracic Clinic Comment on above: Pleural effusion (Pr imary Dx) Start: 11-12-2023 End: 11-12-2023 Patient encounter status Card Injection [facility] Start: 11-12-2023 End: 11-12-2023 Subsequent hospital visit by physician Card Injection Molecular Imaging Start: 11-12-2023 End: 11-12-2023 Patient encounter status Xr J1 Work Phone: [facility] Start: 11-12-2023 End: 11-12-2023 Subsequent hospital visit by physician Rolan Chest Main J1 Work Phone: Radiology Comment on above: Pleural effusion [J9 0] Start: 11-07-2023 Telephone encounter Ronaldo mercado MD, PhD Work Phone: Thoracic Clinic Comment on above: Patient Question (pt not) Start: 10-24-2023 Admission to [facility] Ronaldo Flood MD, PhD Work Phone: Thoracic Clinic Comment on above: Schedule Surgery (Ri ght VATS biopsy/ pleurodesis cs=2.5 los =2-3) Start: 10-24-2023 ambulatory Ronaldo Flood MD, PhD Work Phone: Thoracic Clinic Start: 10-24-2023 Patient encounter status Ronaldo Flood MD, PhD Work Phone: [facility] Start: 10-24-2023 End: 10-24-2023 Patient encounter procedure Ronaldo Flood MD, PhD Work Phone: [facility] Comment on above: Obesity, Class I, BM I 30-34.9 (Primary Dx); Pleural effusion Start: 10-16-2023 Telephone encounter Ronaldo mercado MD, PhD Work Phone: [facility] Comment on above: External Referrals/r esources Start: 10-15-2023 Telephone encounter No Pcp SHOE STICKS REPAIRER Ref erring Physician Comment on above: External Referrals/r esources Start: 10-02-2023 End: 10-02-2023 ambulatory DO Calin Samsa Work Phone: [facility] Work Phone: Start: 10-02-2023 End: 10-02-2023 Departed Referred DO Calin Samsa Work Phone: [facility] Start: 10-01-2023 End: 10-01-2023 ambulatory Calin P Samsa Facility:[facility] Start: 10-01-2023 Non-patient / Non-visit DO Shila tirado Samsa Work Phone: [facility] Work Phone: Start: 09-11-2023 Non-patient / Non-visit DO Shila tirado Samsa Work Phone[facility] Work Phone: Start: 09-05-2023 End: 09-05-2023 ambulatory Calin P Samsa Facility:[facility] Start: 09-05-2023 End: 09-05-2023 ambulatory DO Cailn Samsa Work Phone: [facility] Work Phone: Start: 09-05-2023 End: 09-05-2023 Departed Referred DO Calin Samsa Work Phone: [facility] Start: 09-04-2023 End: 09-04-2023 ambulatory Calin P Samsa Facility:[facility] Start: 09-04-2023 End: 09-04-2023 ambulatory DO Calin Samsa Work Phone: [facility] Work Phone: Start: 09-04-2023 End: 09-04-2023 Departed Referred DO Calin Samsa Work Phone: [facility] Start: 09-04-2023 Non-patient / Non-visit DO Shila tiardo Samsa Work Phone: [facility] Work Phone: Start: 08-28-2023 Non-patient / Non-visit DO Shila tirado Samsa Work Phone: [facility] Work Phone: Start: 08-22-2023 Non-patient / Non-visit DO Shila tirado Samsa Work Phone: [facility] Work Phone: Start: 08-21-2023 Non-patient / Non-visit DO Shila tirado Samsa Work Phone: [facility] Work Phone: Start: 08-15-2023 Non-patient / Non-visit DO Shila tirado Samsa Work Phone: [facility] Work Phone: Start: 08-13-2023 End: 08-13-2023 Patient encounter procedure DO Calin Clemente Work Phone: [facility] Work Phone: Start: 07-23-2023 End: 07-23-2023 ambulatory Yuli Mariscal Other [employer] Other Start: 07-23-2023 Patient encounter procedure Yuli Mariscal [facility] Start: 07-10-2023 End: 07-10-2023 ambulatory Yuli Mariscal Other [employer] Other Start: 07-10-2023 Telephone encounter Yuli VILLAFUERTE G [facility] Start: 07-08-2023 End: 07-08-2023 ambulatory Yuli Mariscal Other [employer] Other Start: 07-08-2023 Telephone encounter Yuli VILLAFUERTE G [facility] Start: 07-07-2023 End: 07-07-2023 ambulatory Yuli Mariscal Other [employer] Other Start: 07-07-2023 Telephone encounter Yuli VILLAFUERTE G [facility] Start: 06-25-2023 End: 06-25-2023 Orders Only Janet Spangler MA [facility] Comment on above: Status post total kn ee replacement, bilateral (Primary Dx) Start: 06-25-2023 Telephone encounter Yuli VILLAFUERTE G [facility] Start: 05-07-2023 End: 05-07-2023 ambulatory Yuli Mariscal Other [employer] Other Start: 05-07-2023 Telephone encounter Yuli Mariscal FP [facility] Start: 04-24-2023 End: 04-24-2023 ambulatory Yuli Mariscal Other [employer] Other Start: 04-24-2023 Telephone encounter Yuli Mariscal FP G [facility] Start: 04-22-2023 End: 04-22-2023 ambulatory Yuli Loida Other [employer] Other Start: 04-22-2023 Patient encounter procedure Yuli LIU [facility] Start: 04-19-2023 End: 04-19-2023 ambulatory Yuli Mariscal Other [employer] Other Start: 04-19-2023 Telephone encounter Yuli Perez [facility] Start: 04-17-2023 End: 04-17-2023 ambulatory Yuli Mariscal Other [employer] Other Start: 04-17-2023 Telephone encounter Yuli Perez [facility] Start: 02-11-2023 End: 02-11-2023 Phys/qhp telephone evaluation 5-10 min Margie Edouard DO Work Phone: [facility] Comment on above: Hallux rigidus of le ft foot (Primary Dx) Start: 02-11-2023 End: 02-15-[address] [facility] Start: 01-16-2023 End: 01-20-2023 ambulatory [facility]I [facility]ISCAL [facility] Start: 01-16-2023 End: 01-16-2023 Office outpatient visit 10 minutes Nena Huff DO Work Phone: [facility] Comment on above: Status post total kn ee replacement, bilateral (Primary Dx) Start: 01-10-2023 End: 01-10-2023 ambulatory Yuli Mariscal Other [employer] Other Start: 01-10-2023 Patient encounter procedure Yuli LIU [facility] Start: 11-19-2022 End: 11-19-2022 ambulatory YULI MARISCAL [facility] Start: 11-19-2022 End: 11-19-2022 Office outpatient visit 15 minutes Margie Edouard DO Work Phone: [facility] Comment on above: Hallux rigidus of le ft foot (Primary Dx) Start: 10-08-2022 End: 10-08-2022 ambulatory YULI MARISCAL [facility] Start: 10-08-2022 End: 10-08-2022 Office outpatient visit 5 minutes Grecia Faith PA-C Work Phone: [facility] Comment on above: Hallux rigidus of le ft foot (Primary Dx); Metatarsalgia, left foot Start: 08-30-2022 Refill Janet Spangler MA [facility] Start: 08-28-2022 End: 09-01-2022 Refill Becca Carrasco Laborer/Key Man [facility] Start: 08-28-2022 End: 08-28-2022 Office outpatient new 30 minutes Margie Edouard DO Work Phone: [facility] Comment on above: Hallux rigidus of le ft foot (Primary Dx); Eaton's metatarsalgia, left Start: 03-19-2022 End: 03-20-[address] NONE LISTED REQUEST Facility: Start: 08-11-2021 Refill Nena spencer DO Work Phone: [facility] Comment on above: Status post total kn ee replacement, bilateral (Primary Dx) Start: 08-11-2020 End: 08-11-2020 Orders Only Ana Todd Work Phone: [facility] Start: 07-20-2020 End: 07-20-2020 Office outpatient visit 10 minutes Nena Huff Work Phone: [facility] Comment on above: Status post total kn ee replacement, bilateral (Primary Dx) Start: 07-01-2019 End: 07-01-2019 Office outpatient visit 10 minutes Nena Huff Work Phone: [facility] Comment on above: Status post total kn ee replacement, bilateral (Primary Dx) Start: 07-30-2017 Office/outpatient visit, est, level 3 Karthik Calloway Work Phone: [facility] Start: 01-29-2017 End: 01-29-2017 Office outpatient visit 15 minutes Karthik Calloway Work Phone: 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);Status post total right knee replacement Procedures Date Procedure Procedure Detail Performing Clinician Start: 03-12-2025 Radex foot complete minimum 3 views Jamel Chowdary DPM Work Phone: Start: 02-25-2025 Urnls dip stick/tablet rgnt auto w/o microscopy Bulk Order Provider Start: 02-19-2025 Dup-scan artl krystal abdl/pel/scrot&/rpr orgn com Marlyn Hooper SHOE STICKS REPAIRER.STEAM TUNNEL FEEDER Work Phone: Start: 02-19-2025 US ABD LIVER VASCULAR Marlyn Hooper SHOE STICKS REPAIRER.STEAM TUNNEL FEEDER Work Phone: Start: 11-23-2024 Radiologic exam chest 2 views Triston kapadia MD Work Phone: Start: 11-23-2024 Echocardiography SUE MURILLO Start: 11-19-2024 Us chest real time w/image documentation Triston Riggs MD Work Phone: Start: 11-19-2024 Radiologic exam chest 2 views Katerina Contreras PA-C Work Phone: Start: 10-15-2024 Urnls dip stick/tablet rgnt auto w/o microscopy Zabrina Suarez MD Work Phone: Start: 10-14-2024 Us chest real time w/image documentation Triston Riggs MD Work Phone: Start: 10-13-2024 Radiologic exam chest 2 views Louise hurley MD Work Phone: Start: 09-25-2024 Esophagogastroduodenoscopy transoral diagnostic Sue Murillo MD Work Phone: Start: 08-27-2024 CRYOTHERAPY SKIN LESION Raji Bynum MD Work Phone: Start: 08-13-2024 Radiologic exam chest 2 views Triston kapadia MD Work Phone: Start: 08-12-2024 Computerized ophthalmic imaging retina Anne-Marie Bajwa DO Work Phone: Start: 08-12-2024 End: 08-12-2024 [facility] medical xm&eval comprhnsv estab pt 1/> Early dry stage nonexudative age-related macular degeneration of both eyes Anne-Marie Bajwa DO Work Phone: Comment on above: Early dry stage nonexudative age-related macular degeneration of both eyes (Primary Dx); Dry eyes; Blepharitis of upper and lower eyelids of both eyes, unspecified type; Bilateral posterior capsular opacification; Chalazion of left upper eyelid Start: 07-29-2024 Cortisol total Comment on above: Provided reference range is from 6-10 AM sample collection time.Cortisol Reference Range: 6-10 AM = 4.8-19.5 ug/dL, 4-8 PM = 2.5-11.9 ug/dL Start: 07-20-2024 Us chest real time w/image documentation Triston Riggs MD Work Phone: Start: 07-20-2024 Radiologic exam chest 2 views [facility] SHOE STICKS REPAIRER.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 TUNNEL FEEDER Work Phone: Start: 05-18-2024 Albumin serum plasma/whole blood Louise Cesar MD Work Phone: Start: 05-18-2024 BF MANUAL DIFF Louise Cesar MD Work Phone: Start: 05-18-2024 Cell count misc body fluids w/differential count Louise Cesar MD Work Phone: Start: 05-18-2024 PH BODY FLUID Louise Cesar MD Work Phone: Start: 05-18-2024 Radiologic exam chest 2 views Louise hurley MD Work Phone: Start: 05-18-2024 Lipid 1996 panel - Serum or Plasma Xr Me ntor Work Phone: Start: 04-28-2024 Esophagoscp rig transoral hypopharynx crv janine Murillo MD Work Phone: Start: 04-28-2024 Colonoscopy flx dx w/collj spec when pfrmd Sue Murillo MD Work Phone: Start: 04-28-2024 Colonoscopy Vic Ponce MD Work Phone: Start: 04-22-2024 Ct abdomen & pelvis w/contrast material Sue Murillo MD Work Phone: Start: 04-20-2024 EXTRA ECOFIX CONTAINER PERFORMABLE Selene Murillo MD Work Phone: Start: 04-20-2024 LAB EXTRA TUBES Sue Murillo MD Work Phone: Start: 04-20-2024 Assay of calprotectin fecal Sue spencer MD Work Phone: Start: 04-20-2024 Inf agent det nucleic acid clostridium amp probe Sue Murillo MD Work Phone: Start: 04-20-2024 PANC ELASTASE, FECAL Sue Murillo MD Work Phone: Start: 04-20-2024 Iaad ia giardia Sue Murillo MD Work Phone: Start: 03-26-2024 Echo tthrc r-t 2d w/wom-mode compl spec&colr d Louise Cesar MD Work Phone: Start: 03-26-2024 LVEF ECHO Louise Cesar MD Work Phone: Start: 03-17-2024 Co diffusing capacity Louise Cesar MD Work Phone: Start: 03-17-2024 Nitric oxide gas determination Katerina Bravo APRN.STEAM T[employer]NEL FEEDER Work Phone: Start: 03-17-2024 Brncdilat rspse spmtry pre&post-brncdilat admn Katerina Bravo APRN.STEAM TUNNEL FEEDER Work Phone: Start: 02-04-2024 Radiologic exam chest 2 views Ruma Zamoi norman PA-C Work Phone: Start: 12-20-2023 Lipid 1996 panel - Serum or Plasma Xr Ho sp Start: 11-12-2023 Us chest real time w/image documentation Roseann Rosario MD Work Phone: Start: 11-12-2023 End: 11-12-2023 Thoracentesis needle/cath pleura w/imaging Roseann Rosario MD Work Phone: Start: 11-12-2023 Myocardial spect multiple studies Ronaldo Flood MD, PhD Work Phone: Start: 11-12-2023 Radiologic exam chest 2 views Ronaldo mercado MD, PhD Work Phone: Start: 10-01-2023 Acid Fast Smear DO [facility] Work Phone: Start: 10-01-2023 AFB Specimen Processing DO [facility] Work Phone: Start: 10-01-2023 Microscopic observation [Identifier] in Unspecified specimen by Gram stain DO [facility] Work Phone: Start: 09-04-2023 Acid Fast Smear DO [facility] Work Phone: Start: 09-04-2023 AFB Specimen Processing DO [facility] Work Phone: Start: 09-04-2023 Microscopic observation [Identifier] in Unspecified specimen by Gram stain DO [facility] Work Phone: Start: 10-08-2022 Follow-up visit Follow-up GRE[facility] FAITH Start: 03-19-[address] RUBIO LISTED REQUEST Comment on above: Performed By: #### PSASC #### [facility] [address] [place] [address] Dr. Joni Sanders Screening for malign ant neoplasm of colon Yuli Ball Other Plan of Treatment Date Care Activity Detail Author Start: 05-27-2034 Urine microalbumin profile DTaP,Tdap,Td Vaccine (2 - Td or Tdap) [facility] Start: 04-28-2034 Screening for malignant neoplasm of colon [facility] Start: 05-18-2029 Lipid panel Lipid Screening [facility] Start: 12-19-2028 Lipid panel Lipid Screening [facility] Start: 08-30-2028 Tetanus vaccination Tetanus: Every 10yrs [facility] Start: 02-12-2028 Diabetes Screening Diabetes Screening [facility] Start: 01-26-2028 Diabetes Screening Diabetes Screening [facility] Start: 01-09-2028 Diabetes Screening Diabetes Screening [facility] Start: 12-23-2027 Diabetes Screening Diabetes Screening [facility] Start: 11-18-2027 Diabetes Screening Diabetes Screening [facility] Start: 11-13-2027 Diabetes Screening Diabetes Screening [facility] Start: 11-06-2027 Diabetes Screening Diabetes Screening [facility] Start: 10-16-2027 Diabetes Screening Diabetes Screening [facility] Start: 10-15-2027 Diabetes Screening Diabetes Screening [facility] Start: 09-12-2027 Diabetes Screening Diabetes Screening [facility] Start: 09-04-2027 Diabetes Screening Diabetes Screening [facility] Start: 08-29-2027 Diabetes Screening Diabetes Screening [facility] Start: 08-25-2027 Diabetes Screening Diabetes Screening [facility] Start: 07-29-2027 Diabetes Screening Diabetes Screening [facility] Start: 05-29-2027 Diabetes Screening Diabetes Screening [facility] Start: 05-18-2027 Diabetes Screening Diabetes Screening [facility] Start: 04-20-2027 Diabetes Screening Diabetes Screening [facility] Start: 03-30-2027 Diabetes Screening Diabetes Screening [facility] Start: 03-03-2027 Diabetes Screening Diabetes Screening [facility] Start: 01-23-2027 Diabetes Screening Diabetes Screening [facility] Start: 01-01-2027 Diabetes Screening Diabetes Screening [facility] Start: 12-25-2026 Diabetes Screening Diabetes Screening [facility] Start: 12-19-2026 Diabetes Screening Diabetes Screening [facility] Start: 11-22-2026 Diabetes Screening Diabetes Screening [facility] Start: 11-11-2026 Diabetes Screening Diabetes Screening [facility] Start: 2026 Respiratory Syncytial Virus Immunization: Risk, 60-74 Risk, or 75+ (1 - 1-dose 75+ series) Respiratory Syncytial Virus Immunization: Risk, 60-74 Risk, or 75+ (1 - 1-dose 75+ series) [facility] Start: 02-11-2026 Creatinine measurement Serum Creatinine [facility] Start: 01-26-2026 Annual PCP Team Chronic Disease Visit Annual PCP Team Chronic Disease Visit [facility] Start: 01-25-2026 Complete blood count Hemoglobin/Hematocrit [facility] Start: 01-25-2026 Creatinine measurement Serum Creatinine [facility] Start: 12-15-2025 Annual PCP Team Chronic Disease Visit Annual PCP Team Chronic Disease Visit [facility] Start: 11-23-2025 BP Controlled (<130/80) BP Controlled (<130/80) [facility] Start: 11-20-2025 BP Controlled (<130/80) BP Controlled (<130/80) [facility] Start: 11-13-2025 Annual PCP Team Chronic Disease Visit Annual PCP Team Chronic Disease Visit [facility] Start: 11-13-2025 BP Controlled (<130/80) BP Controlled (<130/80) [facility] Start: 09-04-2025 Annual PCP Team Chronic Disease Visit Annual PCP Team Chronic Disease Visit [facility] Start: 09-04-2025 BP Controlled (<130/80) BP Controlled (<130/80) [facility] Start: 08-31-2025 End: 08-31-2025 Patient encounter procedure [facility] Start: 08-24-2025 BP Controlled (<130/80) BP Controlled (<130/80) [facility] Start: 08-18-2025 BP Controlled (<130/80) BP Controlled (<130/80) [facility] Start: 08-16-2025 End: 08-16-2025 Patient encounter procedure [facility] Start: 07-21-2025 Annual PCP Team Chronic Disease Visit Annual PCP Team Chronic Disease Visit [facility] Start: 06-12-2025 Annual PCP Team Chronic Disease Visit Annual PCP Team Chronic Disease Visit [facility] Start: 06-12-2025 BP Controlled (<130/80) BP Controlled (<130/80) [facility] Start: 05-21-2025 End: 05-21-2025 Patient encounter procedure 05/21/2025 2:00 PM EST Office Visit Cardiology [address] [place] [address] [place] [address] [facility] [place] [address] 6 month follow up Cardiology Comment on above: 6 month follow up Start: 05-14-2025 End: 05-14-2025 Patient encounter procedure 05/14/2025 8:00 AM EST Office Visit Gastroenterology [address] [address] Christie Palumbo APRN.STEAM TUNNEL FEEDER [address] [place] [address] Marlyn Hooper Reffered Gastroenterology Comment on above: Marlyn Hooper Reffered Start: 05-13-2025 Annual PCP Team Chronic Disease Visit Annual PCP Team Chronic Disease Visit [facility] Start: 05-13-2025 BP Controlled (<130/80) BP Controlled (<130/80) [facility] Start: 05-12-2025 End: 05-12-2025 Patient encounter procedure 05/12/2025 8:25 AM EST Office Visit Gastroenterology [address] [address] Luis Valentine MD [address] [place] [address] Marlyn Hooper Reffered Gastroenterology Comment on above: Marlyn Hooper Reffered Start: 04-28-2025 Screening for malignant neoplasm of colon [facility] Start: 04-07-2025 End: 04-07-2025 Patient encounter procedure 04/07/2025 2:45 PM EDT Procedure Visit [facility] [address] [place] [id number] Jamel Chowdary DPM [address] [place], [place] [id number] [facility] Start: 03-25-2025 End: 03-25-2025 Patient encounter procedure 03/25/2025 11:15 AM EDT Office Visit [facility] [address] [place] [address] Jamel Chowdary DPM [address] [place] [address] [facility] Start: 03-17-2025 End: 03-17-2025 Patient encounter procedure 03/17/2025 10:15 AM EDT Office Visit [facility] [address] [place] [address] Jamel Chowadry DPM [address] [place] [address] [facility] Start: 03-12-2025 End: 03-12-2025 Patient encounter procedure 03/12/2025 8:45 AM EDT Office Visit [facility] [address] [place] [address] Jamel Chowdary DPM [address] [place] [address] Arrived [facility] Comment on above: Arrived Start: 03-09-2025 End: 03-09-2025 Patient encounter procedure 03/09/2025 1:15 PM EDT [place] [address] [place] [address] [place] [address] [place], [place] [id number] Follow-up Jose Antonio Hopper MD Comment on above: Follow-up Start: 02-25-2025 End: 02-25-2025 Patient encounter procedure 02/25/2025 10:20 AM EDT Office Visit Kidney Medicine [facility] [address] [address] Zabrina Suarez MD [address] [place] [address] Elevated serum creatinine [R79.89] Kidney Medicine [facility] Comment on above: Elevated serum creatinine [R79.89] Start: 02-19-2025 End: 02-19-2025 Patient encounter procedure 02/19/2025 1:30 PM EDT Appointment Radiology [address] [address] Other ascites [R18.8] Radiology Comment on above: Other ascites [R18.8] Start: 02-15-2025 Influenza vaccination Influenza Vaccine (#1) [facility] Start: 02-11-2025 Annual PCP Team Chronic Disease Visit Annual PCP Team Chronic Disease Visit [facility] Start: 02-11-2025 BP Controlled (<130/80) BP Controlled (<130/80) [facility] Start: 02-09-2025 End: 05-10-2025 Comprehensive metabolic 2000 panel - Serum or Plasma COMPREHENSIVE METABOLIC PANEL Lab Routine Stage 3a chronic kidney disease (HCC) Expected: 02/09/2025, Expires: 05/10/2025 JORDI HOPPER MD [employer] Work Phone: Comment on above: Expected: 02/09/2025, Expires: Start: 02-03-2025 BP Controlled (<130/80) BP Controlled (<130/80) [facility] Start: 02-02-2025 End: 02-02-2025 Admission to same day surgery center 02/02/2025 9:30 AM EDT - 02/02/2025 11:20 AM EDT Surgery [facility] [address] [place] [address] FISHERIES DIRECTOR [address] [place] [address] TRANSCATHETER BIOPSY Angio Comment on above: TRANSCATHETER BIOPSY Start: 02-02-2025 Subsequent hospital visit by physician 02/02/2025 9:30 AM EDT Hospital Encounter [facility] [address] [place] [address] FISHERIES DIRECTOR [address] [place] [address] Elevated alkaline phosphatase level [R74.8] Angio Comment on above: Elevated alkaline phosphatase level [R74 .8] Start: 02-02-2025 End: 02-02-2025 Transcatheter biopsy TRANSCATHETER BIOPSY Elevated alkaline phosphatase level 02/02/2025 9:30 AM EDT [facility] Start: 01-26-2025 End: 01-26-2025 Patient encounter procedure 01/26/2025 1:00 PM EDT [place] [address] [place] [address] [place] [address] [place] [address] Follow-up Jose Antonio Hopper MD Comment on above: Follow-up Start: 01-14-2025 Annual PCP Team Chronic Disease Visit Annual PCP Team Chronic Disease Visit [facility] Start: 01-11-2025 End: 01-11-2025 Patient encounter procedure 01/11/2025 9:30 AM EDT Office Visit Pulmonary Medicine [address] [place] [address] Triston Riggs MD [address] [place] [address] 4-6 weeks Pulmonary Medicine Comment on above: 4-6 weeks Start: 01-08-2025 End: 01-08-2025 Patient encounter procedure 01/08/2025 1:00 PM EDT Appointment Radiology [address] [place] [address] [place] [address] XR CHEST 2V FRONTAL/LAT Radiology Comment on above: XR CHEST 2V FRONTAL/LAT Start: 12-22-2024 End: 12-22-2024 ambulatory 12/22/2024 6:00 PM EDT [facility] Gastroenterology [address] [address] Marlyn oHoper APRN.STEAM TUNNEL FEEDER [address] [place] [address] Elevated alkaline phosphatase leve Gastroenterology Comment on above: Elevated alkaline phosphatase leve Start: 12-22-2024 End: 03-23-2025 Alpha 1 antitrypsin [Mass/volume] in Serum or Plasma [id number] Lab Routine Elevated alkaline phosphatase level Expected: 12/22/2024, Expires: 03/23/2025 [facility] Comment on above: Expected: 12/22/2024, Expires: Start: 12-22-2024 End: 03-23-2025 GREY BY IFA WITH REFLEX GREY BY IFA WITH REFLEX Lab Routine Elevated alkaline phosphatase level Expected: 12/22/2024, Expires: 03/23/2025 [facility] Comment on above: Expected: 12/22/2024, Expires: Start: 12-22-2024 End: 03-23-2025 Basic metabolic 2000 panel - Serum or Plasma BASIC METABOLIC PANEL Lab Routine Hypokalemia Expected: 12/22/2024, Expires: 03/23/2025 JORDI HOPPER MD [facility] Work Phone: Comment on above: Expected: 12/22/2024, Expires: Start: 12-22-2024 End: 03-23-2025 CBC panel - Blood by Automated count COMPLETE BLOOD COUNT Lab Routine Elevated alkaline phosphatase level Expected: 12/22/2024, Expires: 03/23/2025 [facility] Comment on above: Expected: 12/22/2024, Expires: Start: 12-22-2024 End: 03-23-2025 Chronic hepatitis differentiation between hepatitis B and C virus panel - Serum or Plasma HEP REMOTE PANEL BL Lab Routine Elevated alkaline phosphatase level Expected: 12/22/2024, Expires: 03/23/2025 [facility] Comment on above: Expected: 12/22/2024, Expires: Start: 12-22-2024 End: 03-23-2025 Comprehensive metabolic 2000 panel - Serum or Plasma COMPREHENSIVE METABOLIC PANEL Lab Routine Elevated alkaline phosphatase level Expected: 12/22/2024, Expires: 03/23/2025 [facility] Comment on above: Expected: 12/22/2024, Expires: Start: 12-22-2024 End: 03-23-2025 Cytomegalovirus IgM Ab [Units/volume] in Serum or Plasma CMV IGM AB Lab Routine Elevated alkaline phosphatase level Expected: 12/22/2024, Expires: 03/23/2025 [facility] Comment on above: Expected: 12/22/2024, Expires: Start: 12-22-2024 End: 03-23-2025 Ferritin [Mass/volume] in Serum or Plasma FERRITIN Lab Routine Elevated alkaline phosphatase level Expected: 12/22/2024, Expires: 03/23/2025 [facility] Comment on above: Expected: 12/22/2024, Expires: Start: 12-22-2024 End: 03-23-2025 Gamma glutamyl transferase [Enzymatic activity/volume] in Serum or Plasma GGT Lab Routine Elevated alkaline phosphatase level Expected: 12/22/2024, Expires: 03/23/2025 [facility] Comment on above: Expected: 12/22/2024, Expires: Start: 12-22-2024 End: 03-23-2025 Iron and Iron binding capacity panel - Serum or Plasma IRON AND TIBC Lab Routine Elevated alkaline phosphatase level Expected: 12/22/2024, Expires: 03/23/2025 [facility] Comment on above: Expected: 12/22/2024, Expires: Start: 12-22-2024 End: 03-23-2025 Liver kidney microsomal Ab [Titer] in Serum by Immunofluorescence LIVER-KIDNEY MICROSOME ANTIBODY, IGG Lab Routine Elevated alkaline phosphatase level Expected: 12/22/2024, Expires: 03/23/2025 [facility] Comment on above: Expected: 12/22/2024, Expires: Start: 12-22-2024 End: 03-23-2025 Mitochondria Ab [Presence] in Serum by Immunofluorescence MITOCHONDRIAL M2 IGG SERUM Lab Routine Elevated alkaline phosphatase level Expected: 12/22/2024, Expires: 03/23/2025 [facility] Comment on above: Expected: 12/22/2024, Expires: Start: 12-22-2024 End: 03-23-2025 PT panel - Platelet poor plasma by Coagulation assay PROTHROMBIN TIME Lab Routine Elevated alkaline phosphatase level Expected: 12/22/2024, Expires: 03/23/2025 [facility] Comment on above: Expected: 12/22/2024, Expires: Start: 12-22-2024 End: 03-23-2025 Smooth muscle Ab [Presence] in Serum SMOOTH MUSCLE AB SCR Lab Routine Elevated alkaline phosphatase level Expected: 12/22/2024, Expires: 03/23/2025 [facility] Comment on above: Expected: 12/22/2024, Expires: Start: 12-16-2024 End: 12-16-2024 Patient encounter procedure Vascular Surgery Comment on above: Extremity cyanosis [R23.0] Start: 12-16-2024 End: 12-16-2024 Patient encounter procedure 12/16/2024 12:30 PM EDT Office Visit Vascular Surgery [address] [place] [address] Extremity cyanosis [R23.0] Vascular Surgery Comment on above: Extremity cyanosis [R23.0] Start: 12-15-2024 End: 12-15-2024 Patient encounter procedure 12/15/2024 11:15 AM [place] [address] [place] [address] [place] [address] [place] [address] Follow-up Jose Antonio Hopper MD Comment on above: Follow-up Start: 12-03-2024 End: 12-03-2024 ambulatory 12/03/2024 8:30 AM EDT [facility] Gastroenterology [address] [address] Marlyn Hooper APRN.[employer]AM T[employer]NEL FEEDER [address] [place] [address] Elevated alkaline phosphatase leve Gastroenterology Comment on above: Elevated alkaline phosphatase leve Start: 11-23-2024 End: 11-23-2024 Patient encounter procedure Radiology Comment on above: Hepatomegaly [R16.0] Extremity cyanosis [ R23.0] CXR H&P Established Dayan ent Visit Start: 11-20-2024 End: 11-20-2025 Echocardiography ECHO Cardiology Routine Extremity cyanosis Expected: 11/20/2024, Expires: 11/20/2025 [facility] Comment on above: Expected: 11/20/2024, Expires: Start: 11-20-2024 End: 11-20-2024 Patient encounter procedure 11/20/2024 9:00 AM EDT Office Visit Cardiology [address] [place] [address] [place] [address] [facility] [place] [address] PAD, LE with poor perfusion Cardiology Comment on above: PAD, LE with poor perfusion Start: 11-19-2024 End: 11-19-2024 Patient encounter procedure Pulmonary Medicine Comment on above: f/u visit/Dr. KENNEDY will see pt. Start: 11-19-2024 End: 11-19-2024 ambulatory 11/19/2024 10:30 AM EDT [facility] Gastroenterology [address] [address] Marlyn Hooper APRN.[employer]NEL FEEDER [address] [place] [address] Elevated alkaline phosphatase leve Gastroenterology Comment on above: Elevated alkaline phosphatase maloriee Start: 11-14-2024 End: 02-13-2025 Comprehensive metabolic 2000 panel - Serum or Plasma COMPREHENSIVE METABOLIC PANEL Lab Routine Hepatomegaly Expected: 11/14/2024, Expires: 02/13/2025 [facility] Comment on above: Expected: 11/14/2024, Expires: Start: 11-14-2024 End: 02-13-2025 Magnesium [Mass/volume] in Serum or Plasma MAGNESIUM Lab Routine Hypomagnesemia Expected: 11/14/2024, Expires: 02/13/2025 [facility] Comment on above: Expected: 11/14/2024, Expires: Start: 11-13-2024 End: 02-12-2025 Acute hepatitis 2000 panel - Serum HEP ACUTE PANEL BL Lab Routine Hepatomegaly Expected: 11/13/2024, Expires: 02/12/2025 [facility] Work Phone: Comment on above: Expected: 11/13/2024, Expires: Start: 11-13-2024 End: 02-12-2025 AUTOIMMUNE HEPATITIS DIAGNOSTIC PANEL AUTOIMMUNE HEPATITIS DIAGNOSTIC PANEL Lab Routine Hepatomegaly Expected: 11/13/2024, Expires: 02/12/2025 [facility] Comment on above: Expected: 11/13/2024, Expires: Start: 11-13-2024 End: 02-12-2025 COPPER BLOOD COPPER BLOOD Lab Routine Hepatomegaly Expected: 11/13/2024, Expires: 02/12/2025 [facility] Comment on above: Expected: 11/13/2024, Expires: Start: 11-13-2024 End: 02-12-2025 Hepatitis C virus RNA [Units/volume] (viral load) in Serum or Plasma by BRYN with probe detection HEPATITIS C VIRUS (HCV) RNA, QUANTITATIVE PCR, PLASMA/SERUM Lab Routine Hepatomegaly Expected: 11/13/2024, Expires: 02/12/2025 [facility] Comment on above: Expected: 11/13/2024, Expires: Start: 11-13-2024 End: 02-12-2025 Iron and Iron binding capacity panel - Serum or Plasma IRON AND TIBC Lab Routine Hepatomegaly Expected: 11/13/2024, Expires: 02/12/2025 [facility] Comment on above: Expected: 11/13/2024, Expires: Start: 11-13-2024 End: 11-13-2024 Patient encounter procedure 11/13/2024 1:00 PM EDT [place] [address] [place], [place] [id number] [place] [address] [address] [place] [place] [phone] Follow-up Jose Antonio Hopper MD Comment on above: Follow-up Start: 11-04-2024 End: 11-04-2024 Patient encounter procedure [facility] Radiology CT Scan Comment on above: CT ENTEROGRAPHY W IVCON Start: 10-23-2024 End: 10-23-2024 Patient encounter procedure [facility] Draw Station Comment on above: LAB US ABD RIGHT UPPER Q UADRANT Start: 10-19-2024 End: 01-18-2025 Amylase [Enzymatic activity/volume] in Serum or Plasma AMYLASE Lab Routine Serositis ([facility]) Expected: 10/19/2024, Expires: 01/18/2025 [facility] Comment on above: Expected: 10/19/2024, Expires: Start: 10-19-2024 End: 01-18-2025 IGG SUBCLASSES BLD IGG SUBCLASSES BLD Lab Routine Serositis ([facility]) Expected: 10/19/2024, Expires: 01/18/2025 [facility] Work Phone: Comment on above: Expected: 10/19/2024, Expires: Start: 10-19-2024 End: 01-18-2025 Lipase [Enzymatic activity/volume] in Serum or Plasma LIPASE Lab Routine Serositis ([facility]) Expected: 10/19/2024, Expires: 01/18/2025 [facility] Comment on above: Expected: 10/19/2024, Expires: Start: 10-15-2024 End: 01-14-2025 ALK PHOS ISOENZYM [facility] Comment on above: Expected: 10/15/2024, Expires: Start: 10-14-2024 End: 10-14-2024 Patient encounter procedure Pulmonary Medicine Comment on above: EST pt visit in H23 w/Dr Riggs post 10/02 procedure abdominal pain Start: 10-13-2024 End: 10-13-2024 Patient encounter procedure 10/13/2024 1:00 PM EDT Appointment Radiology [address] [place] [address] [place] [address] CHEST XRAY Radiology Comment on above: CHEST XRAY Start: 10-02-2024 End: 10-02-2024 Thoracentesis needle/cath pleura w/imaging THORACENTESIS NEEDLE OR CATHETER ASPIRATION OF THE PLEURAL SPACE W IMAGING GUIDANCE Bronchiolar disease 10/02/2024 11:42 AM EDT PULM LAB H23 Start: 10-02-2024 End: 10-02-2024 Admission to same day surgery center 10/02/2024 10:30 AM EDT - 10/02/2024 11:30 AM EDT Surgery Admitting [address] [place] [address] Merlyn Zavala MD [address] [place] [address] THORACENTESIS NEEDLE OR CATHETER ASPIRATION OF THE PLEURAL SPACE W IMAGING GUIDANCE Admitting Comment on above: THORACENTESIS NEEDLE OR CATHETER ASPIRAT ION OF THE PLEURAL SPACE W IMAGING GUIDANCE Start: 10-02-2024 Subsequent hospital visit by physician 10/02/2024 10:30 AM EDT Hospital Encounter Admitting [address] [place] [address] Merlyn Zavala MD [address] [place] [address] 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] Admitting Comment on above: 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] Start: 10-02-2024 End: 10-02-2024 Thoracentesis needle/cath pleura w/imaging THORACENTESIS NEEDLE OR CATHETER ASPIRATION OF THE PLEURAL SPACE W IMAGING GUIDANCE Bronchiolar disease 10/02/2024 10:30 AM EDT PULM LAB H23 Start: 09-25-2024 End: 09-25-2024 Patient encounter procedure Gastroenterology Comment on above: Esophageal dysphagia [R13.19] Start: 09-22-2024 End: 09-22-2024 Patient encounter procedure Jose Antonio Hopper MD Comment on above: Follow-up Start: 09-11-2024 End: 12-11-2024 Basic metabolic 2000 panel - Serum or Plasma BASIC METABOLIC PANEL Lab Routine Hypokalemia Expected: 09/11/2024, Expires: 12/11/2024 CP JOSE ANTONIO HOPPER MD [facility] Work Phone: Comment on above: Expected: 09/11/2024, Expires: Start: 09-11-2024 End: 12-11-2024 CBC panel - Blood by Automated count COMPLETE BLOOD COUNT Lab Routine Anemia, unspecified type Expected: 09/11/2024, Expires: 12/11/2024 [facility] Comment on above: Expected: 09/11/2024, Expires: Start: 09-08-2024 End: 09-08-2024 Admission to same day surgery center 09/08/2024 10:30 AM EDT - 09/08/2024 11:30 AM EDT Surgery Admitting [address] [address] Roseann Rosario MD [address] [place] [address] THORACENTESIS NEEDLE OR CATHETER ASPIRATION OF THE PLEURAL SPACE W IMAGING GUIDANCE Admitting Comment on above: THORACENTESIS NEEDLE OR CATHETER ASPIRAT ION OF THE PLEURAL SPACE W IMAGING GUIDANCE Start: 09-08-2024 Subsequent hospital visit by physician 09/08/2024 10:30 AM EDT Hospital Encounter Admitting [address] [address] Roseann Rosario MD [address] [place] [address] 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] Admitting Comment on above: 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] Start: 09-08-2024 End: 09-08-2024 Thoracentesis needle/cath pleura w/imaging THORACENTESIS NEEDLE OR CATHETER ASPIRATION OF THE PLEURAL SPACE W IMAGING GUIDANCE Bronchiolar disease 09/08/2024 10:30 AM EDT PULM LAB H23 Start: 09-04-2024 End: 09-04-2024 Patient encounter procedure 09/04/2024 1:15 PM EDT [place] [address] [place] [address] [place] [address] [place] [address] Follow-up Jose Antonio Hopper MD Comment on above: Follow-up Start: 09-04-2024 End: 09-04-2024 Admission to same day surgery center 09/04/2024 10:30 AM EDT - 09/04/2024 11:30 AM EDT Surgery Admitting [address] [address] James Enamorado MD [address] [place] [address] THORACENTESIS NEEDLE OR CATHETER ASPIRATION OF THE PLEURAL SPACE W IMAGING GUIDANCE Admitting Comment on above: THORACENTESIS NEEDLE OR CATHETER ASPIRAT ION OF THE PLEURAL SPACE W IMAGING GUIDANCE Start: 09-04-2024 Subsequent hospital visit by physician 09/04/2024 10:30 AM EDT Hospital Encounter Admitting [address] [address] James Enamorado MD [address] [place] [address] 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] Admitting Comment on above: 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] Start: 09-04-2024 End: 09-04-2024 Thoracentesis needle/cath pleura w/imaging PULM LAB H23 Start: 09-01-2024 End: 12-01-2024 Comprehensive metabolic 2000 panel - Serum or Plasma COMPREHENSIVE METABOLIC PANEL Lab Routine Recurrent 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 Expected: 09/01/2024, Expires: 12/01/2024 [facility] Work Phone: Comment on above: Expected: 09/01/2024, Expires: Start: 09-01-2024 End: 12-01-2024 Magnesium [Mass/volume] in Serum or Plasma MAGNESIUM Lab Routine Recurrent 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 Expected: 09/01/2024, Expires: 12/01/2024 [facility] Comment on above: Expected: 09/01/2024, Expires: Start: 08-28-2024 End: 11-27-2024 Thyrotropin [Units/volume] in Serum or Plasma [facility] Work Phone: Comment on above: Expected: 08/28/2024, Expires: Start: 08-27-2024 End: 08-27-2024 Patient encounter procedure [facility] Comment on above: Arrived Start: 08-24-2024 End: 11-23-2024 Comprehensive metabolic 2000 panel - Serum or Plasma [facility] Comment on above: Expected: 08/24/2024, Expires: Start: 08-24-2024 End: 11-23-2024 Magnesium [Mass/volume] in Serum or Plasma [facility] Comment on above: Expected: 08/24/2024, Expires: Start: 08-24-2024 End: 11-23-2024 Thyrotropin [Units/volume] in Serum or Plasma [facility] Work Phone: Comment on above: Expected: 08/24/2024, Expires: Start: 08-24-2024 End: 08-24-2024 Patient encounter procedure 08/24/2024 11:00 AM EDT Office Visit Gastroenterology [address] [address] Sue Murillo MD [address] [place] [address] Diarrhea Gastroenterology Comment on above: Diarrhea Start: 08-21-2024 End: 11-20-2024 Basic metabolic 2000 panel - Serum or Plasma BASIC METABOLIC PANEL Lab Routine Recurrent 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 Expected: 08/21/2024, Expires: 11/20/2024 [facility] Work Phone: Comment on above: Expected: 08/21/2024, Expires: Start: 08-18-2024 End: 08-18-2024 Patient encounter procedure 08/18/2024 2:00 PM EST Office Visit Thoracic Clinic [address] [place] [address] Della Barragan, [employer]IC[employer] REPAIRER.STE[employer] T[employer]NEL FEEDER [address] [place], [place] [id number] Pleural Effusion Thoracic Clinic Comment on above: Pleural Effusion Start: 08-13-2024 End: 08-13-2024 Patient encounter procedure 08/13/2024 9:30 AM EST Appointment Radiology [address] [place], [place] [id number] CHEST XR Radiology Comment on above: CHEST XR Start: 08-12-2024 End: 08-12-2024 Patient encounter procedure 08/12/2024 3:00 PM EST Office Visit [facility] [address] [place] [address] Anne-Marie Bajwa DO [address] [place] [address] Arrived [facility] Comment on above: Arrived Start: 07-28-2024 End: 10-27-2024 Magnesium [Mass/volume] in Serum or Plasma MAGNESIUM Lab Routine Hypomagnesemia Expected: 07/28/2024, Expires: 10/27/2024 [facility] Comment on above: Expected: 07/28/2024, Expires: Start: 07-24-2024 End: 10-23-2024 25-hydroxyvitamin D3 [Mass/volume] in Serum or Plasma VITAMIN D 25 HYDROXY Lab Routine Fatigue, unspecified type Expected: 07/24/2024, Expires: 10/23/2024 [facility] Comment on above: Expected: 07/24/2024, Expires: Start: 07-24-2024 End: 10-23-2024 Cobalamin (Vitamin B12) [Mass/volume] in Serum or Plasma VITAMIN B12 Lab Routine Fatigue, unspecified type Expected: 07/24/2024, Expires: 10/23/2024 [facility] Work Phone: Comment on above: Expected: 07/24/2024, Expires: Start: 07-24-2024 End: 10-23-2024 Cortisol [Mass/volume] in Serum or Plasma CORTISOL, SERUM Lab Routine Fatigue, unspecified type Expected: 07/24/2024, Expires: 10/23/2024 [facility] Comment on above: Expected: 07/24/2024, Expires: Start: 07-21-2024 End: 10-20-2024 Basic metabolic 2000 panel - Serum or Plasma BASIC METABOLIC PANEL Lab Routine Anasarca Expected: 07/21/2024, Expires: 10/20/2024 JORDI HOPPER MD [facility] Work Phone: Comment on above: Expected: 07/21/2024, Expires: Start: 07-21-2024 End: 07-21-2024 Patient encounter procedure 07/21/2024 2:00 PM EST Office [place] [address] [place] [address] [place] [address] [place], [place] [id number] Follow-up Jose Antonio Hopper MD Comment on above: Follow-up Start: 07-20-2024 End: 08-19-2025 XR Chest AP right lateral-decubitus XR CHEST 1V DECUBITUS RIGHT Radiology Routine Pleural effusion Expected: 07/20/2024, Expires: 08/19/2025 [facility] Comment on above: Expected: 07/20/2024, Expires: Start: 07-20-2024 End: 08-19-2025 XR Chest PA and Lateral XR CHEST 2V FRONTAL/LAT Radiology Routine Pleural effusion Expected: 07/20/2024, Expires: 08/19/2025 [facility] Work Phone: Comment on above: Expected: 07/20/2024, Expires: Start: 07-20-2024 End: 07-20-2024 Patient encounter procedure 07/20/2024 1:00 PM EST Office Visit Pulmonary Medicine [address] [place] [address] Triston Riggs MD [address] [place] [address] Katerina Contreras PA-C [address] [place] [address] H&P Established Patient Pulmonary Medicine Comment on above: H&P Established Patient Start: 06-22-2024 End: 09-21-2024 BODY FLUID CELL COUNT BODY FLUID CELL COUNT Lab Routine Pleural effusion Pleuritis Lymphocytic colitis Pericardial effusion (noninflammatory) Interstitial pulmonary disease (HCC) Expected: 06/22/2024, Expires: 09/21/2024 [facility] Comment on above: Expected: 06/22/2024, Expires: Start: 06-22-2024 End: 09-21-2024 FLOW CYTOMETRY FOR LEUKEMIA/LYMPHOMA (FCLL) FLOW CYTOMETRY FOR LEUKEMIA/LYMPHOMA (FCLL) Lab Routine Pleural effusion Pleuritis Lymphocytic colitis Pericardial effusion (noninflammatory) Interstitial pulmonary disease (HCC) Expected: 06/22/2024, Expires: 09/21/2024 [facility] Comment on above: Expected: 06/22/2024, Expires: Start: 06-22-2024 End: 09-21-2024 Glucose [Mass/volume] in Body fluid GLUCOSE, BODY FLUID Lab Routine Pleural effusion Pleuritis Lymphocytic colitis Pericardial effusion (noninflammatory) Interstitial pulmonary disease (HCC) Expected: 06/22/2024, Expires: 09/21/2024 [facility] Comment on above: Expected: 06/22/2024, Expires: Start: 06-22-2024 End: 09-21-2024 Lactate dehydrogenase [Enzymatic activity/volume] in Body fluid LACTATE DEHYDROGENASE, BODY FLUID Lab Routine Pleural effusion Pleuritis Lymphocytic colitis Pericardial effusion (noninflammatory) Interstitial pulmonary disease (HCC) Expected: 06/22/2024, Expires: 09/21/2024 [facility] Comment on above: Expected: 06/22/2024, Expires: Start: 06-22-2024 End: 06-22-2024 Thoracentesis needle/cath pleura w/imaging THORACENTESIS NEEDLE OR CATHETER ASPIRATION OF THE PLEURAL SPACE W IMAGING GUIDANCE Bronchiolar disease 06/22/2024 10:15 AM EST PULM LAB H23 Start: 06-22-2024 End: 06-22-2024 Patient encounter procedure 06/22/2024 9:00 AM EST Office Visit Pulmonary Medicine [address] [place] [address] Triston Riggs MD [address] [place] [address] NPV Pulmonary Medicine Comment on above: NPV Start: 06-17-2024 Advance Directive Discussion Advance Directive Discussion [facility] Start: 06-17-2024 Medicare Advantage Annual Wellness Visit Medicare Advantage Annual Wellness Visit [facility] Start: 06-12-2024 End: 06-12-2024 Patient encounter procedure 06/12/2024 1:30 PM EST Office [place] [address] [place] [address] [place] [address] [place] [address] Follow-up Jose Antonio Hopper MD Comment on above: Follow-up Start: 06-01-2024 End: 06-01-2024 Patient encounter procedure 06/01/2024 12:30 PM EST Office Visit Rheumatology [address] [address] Steffen Mccarty MD [address] [place] [address] 2mo f/u Rheumatology Comment on above: 2mo f/u Start: 05-26-2024 End: 05-26-2024 Patient encounter procedure 05/26/2024 4:30 PM EST Office Visit Gastroenterology [address] [address] Sue Murillo MD [address] [place] [address] Diarrhea Follow Up Gastroenterology Comment on above: Diarrhea Follow Up Start: 05-20-2024 End: 08-19-2024 Basic metabolic 2000 panel - Serum or Plasma BASIC METABOLIC PANEL Lab Routine Recurrent 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 Anasarca Expected: 05/20/2024, Expires: 08/19/2024 CP JOSE ANTONIO HOPPER MD [facility] Work Phone: Comment on above: Expected: 05/20/2024, Expires: Start: 05-19-2024 End: 05-19-2024 Patient encounter procedure 05/19/2024 11:30 AM [place] [address] [place] [address] [place] [address] [place] [address] Follow-up Jose Antonio Hopper MD Comment on above: Follow-up Start: 05-18-2024 End: 08-17-2024 Bacteria identified in Body fluid by Culture BODY FLUID CULTURE AND GRAM STAIN Microbiology Routine Pleural effusion Expected: 05/18/2024, Expires: 08/17/2024 [facility] Comment on above: Expected: 05/18/2024, Expires: Start: 05-18-2024 End: 08-17-2024 CYTOLOGY NON-TELEPHONE LINEWORKER [facility] Comment on above: Expected: 05/18/2024, Expires: Start: 05-18-2024 End: 08-17-2024 FATTY ACIDS PROFILE, ESSENTIAL [facility] Work Phone: Comment on above: Expected: 05/18/2024, Expires: Start: 05-18-2024 End: 08-17-2024 FLOW CYTOMETRY FOR LEUKEMIA/LYMPHOMA (FCLL) [facility] Comment on above: Expected: 05/18/2024, Expires: Start: 05-18-2024 End: 08-17-2024 Microorganism identified in Unspecified specimen by Culture AFB CULT + STAIN Microbiology Routine Pleural effusion Expected: 05/18/2024, Expires: 08/17/2024 [facility] Comment on above: Expected: 05/18/2024, Expires: Start: 05-18-2024 End: 05-18-2024 Patient encounter procedure 05/18/2024 10:40 AM EST Office Visit Pulmonary Medicine [address] [place] [address] Louise Cesar MD [address] [place] [address] follow up Pulmonary Medicine Comment on above: follow up Start: 05-13-2024 End: 05-13-2024 Patient encounter procedure 05/13/2024 11:30 AM EST Office [place] [address] [place], [place] [phone] Jose Antonio Hopper MD [id number] [place] [address] Follow-up Jose Antonio Hopper MD Comment on above: Follow-up Start: 04-28-2024 End: 04-28-2024 Patient encounter procedure [facility] Comment on above: Diarrhea, unspecified type [R19.7] Start: 04-20-2024 End: 04-20-2024 Anesthesia consultation 04/20/2024 11:59 PM EST Anesthesia Event [facility] [address] [place] [phone] Silvino Henley APRN.CRNA [facility] Start: 04-20-2024 End: 04-20-2024 Patient encounter procedure 04/20/2024 12:00 PM EST Office Visit Gastroenterology [address] [address] Sue Murillo MD [address] [place] [address] Diarrhea, unspecified type [R19.7] Gastroenterology Comment on above: Diarrhea, unspecified type [R19.7] Start: 04-13-2024 End: 04-13-2024 Patient encounter procedure 04/13/2024 11:00 AM EDT Office Visit Rheumatology [address] [address] Steffen Mccarty MD [address] [place] [address] J90 (ICD-10-CM) - Pleural effusion Rheumatology Comment on above: J90 (ICD-10-CM) - Pleural effusion Start: 03-30-2024 End: 03-30-2024 Patient encounter procedure 03/30/2024 9:30 AM EDT Office Visit Rheumatology [address] [address] Steffen Mccarty MD [address] [place] [address] J90 (ICD-10-CM) - Pleural effusion Rheumatology Comment on above: J90 (ICD-10-CM) - Pleural effusion Start: 03-26-2024 End: 03-26-2024 Patient encounter procedure 03/26/2024 2:30 PM EDT Appointment Cardiovascular Testing [address] [place] [address] Pericarditis, unspecified chronicity, unspecified type [I31.9] Cardiovascular Testing Comment on above: Pericarditis, unspecified chronicity, un specified type [I31.9] Start: 03-17-2024 End: 03-17-2024 Patient encounter procedure 03/17/2024 4:30 PM EDT Appointment Radiology [address] [place] [address] Interstitial pulmonary disease (HCC) [J84.9] Radiology Comment on above: Interstitial pulmonary disease (HCC) [J8 4.9] Start: 03-17-2024 End: 03-17-2024 Patient encounter procedure Thoracic Surgery Comment on above: Pleural effusion Start: 03-17-2024 End: 03-17-2024 ambulatory 03/17/2024 1:15 PM EDT Procedure Pulmonary Lab [address] [facility] [address] [place], [place] [id number] Pleural effusion [J90]; Interstitial pulmonary disease (HCC) [J84.9] Pulmonary Lab Comment on above: Pleural effusion [J90]; Interstitial pul monary disease (HCC) [J84.9] Start: 03-17-2024 End: 03-17-2024 Patient encounter procedure 03/17/2024 10:20 AM EDT Office Visit PULMONOLOGY [facility] [address] [place] [address] Louise Cesar MD [address] [place] [address] NEW Chronic cough pt + CXR + PFT'S PULMONOLOGY [facility] Comment on above: NEW Chronic cough pt + CXR + PFT'S Start: 03-17-2024 End: 03-17-2024 Patient encounter procedure 03/17/2024 9:15 AM EDT Appointment XRAY / RADIOLOGY [facility] [address] [place] [address] Chronic bronchitis, unspecified chronic bronchitis type (HCC) [J42 XRAY / RADIOLOGY [facility] Comment on above: Chronic bronchitis, unspecified chronic bronchitis type (HCC) [J42 Start: 03-17-2024 End: 03-17-2024 ambulatory PULMONOLOGY LAB [facility] Comment on above: Chronic cough [R05.3] Pleural effusion [J9 0]; Interstitial pulmonary disease (HCC) [J84.9] Start: 02-16-2024 Covid-19 Vaccine () Covid-19 Vaccine () [facility] Start: 02-16-2024 Covid-19 Vaccine () Covid-19 Vaccine () [facility] Start: 02-16-2024 Covid-19 Vaccine ( season) Covid-19 Vaccine () [facility] Start: 02-16-2024 Influenza vaccination [facility] Start: 02-12-2024 End: 05-13-2024 Basic metabolic 2000 panel - Serum or Plasma BASIC METABOLIC PANEL Lab Routine Primary hypertension Expected: 02/12/2024, Expires: 05/13/2024 [facility] Comment on above: Expected: 02/12/2024, Expires: Start: 02-12-2024 End: 05-13-2024 CBC panel - Blood by Automated count COMPLETE BLOOD COUNT Lab Routine Primary hypertension Anemia, unspecified type Expected: 02/12/2024, Expires: 05/13/2024 [facility] Work Phone: Comment on above: Expected: 02/12/2024, Expires: Start: 02-12-2024 End: 05-13-2024 Magnesium [Mass/volume] in Serum or Plasma MAGNESIUM Lab Routine Primary hypertension Hypomagnesemia Expected: 02/12/2024, Expires: 05/13/2024 [facility] Comment on above: Expected: 02/12/2024, Expires: Start: 02-12-2024 End: 02-12-2024 Patient encounter procedure 02/12/2024 1:30 PM [place] [address] [address] [address] [place] [address] [address] follow up from angel Dial MD Comment on above: follow up from angel Start: 02-12-2024 End: 02-12-2024 Patient encounter procedure 02/12/2024 10:45 AM [place] [address] [place] [address] [place] [address] [place] [address] Follow-up Jose Antonio Hopper MD Comment on above: Follow-up Start: 02-04-2024 End: 02-04-2024 Patient encounter procedure [facility] Comment on above: Recurrent 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 [J90 ] Start: 01-15-2024 End: 04-15-2024 Basic metabolic 2000 panel - Serum or Plasma BASIC METABOLIC PANEL Lab Routine Recurrent 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 Expected: 01/15/2024, Expires: 04/15/2024 [facility] Work Phone: Comment on above: Expected: 01/15/2024, Expires: Start: 01-15-2024 End: 01-15-2024 Patient encounter procedure 01/15/2024 1:00 PM EDT [place] [address] [place] [address] [place] [address] [facility] [place] [address] New Patient Jose Antonio Hopper MD Comment on above: New Patient Start: 01-06-2024 End: 01-06-2024 Patient encounter procedure [facility] Comment on above: Recurrent 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 [J90 ] Start: 12-20-2023 End: 12-20-2023 Patient encounter procedure [facility] Comment on above: Pleural effusion Start: 12-13-2023 End: 12-13-2023 Patient encounter procedure [facility] Comment on above: Pleural effusion [J90] Pleural effusion Start: 12-04-2023 End: 12-04-2023 Patient encounter procedure [facility] Comment on above: Discharge follow up Start: 12-03-2023 End: 12-03-2023 Patient encounter procedure [facility] Comment on above: Pleural effusion Start: 12-01-2023 End: 12-23-2024 XR Chest PA and Lateral XR CHEST 2V FRONTAL/LAT Radiology Routine Surgery follow-up Expected: 12/01/2023, Expires: 12/23/2024 [facility] Work Phone: Comment on above: Expected: 12/01/2023, Expires: Start: 11-20-2023 End: 11-20-2023 Admission to same day surgery center 11/20/2023 5:43 PM EDT - 11/20/2023 9:17 PM EDT Surgery Admitting [address] [place] [address] Ronaldo Flood MD, PhD [address] [facility] [place] [address] THORACOSCOPY WITH PLEURAL ABRASION Admitting Comment on above: THORACOSCOPY WITH PLEURAL ABRASION Start: 11-20-2023 Subsequent hospital visit by physician 11/20/2023 5:43 PM EDT Hospital Encounter Admitting [address] [place] [address] Ronaldo Flood MD, PhD [address] [facility] [address] [place] [address] Pleural effusion [J90] Admitting Comment on above: Pleural effusion [J90] Start: 11-20-2023 End: 11-20-2023 Thoracoscopy w/dx bx of lung infiltrate unilatrl THORACOSCOPY W/ DIAGNOSTIC BIOPSY(IES) OF LUNG NODULE(S) OR MASS(ES) UNILATERAL Pleural effusion Encounter for other preprocedural examination 11/20/2023 5:[address] [facility] Start: 11-20-2023 End: 11-20-2023 Thoracoscopy w/pleurodesis THORACOSCOPY WITH PLEURAL ABRASION Pleural effusion Encounter for other preprocedural examination 11/20/2023 5:[address] [facility] Start: 11-20-2023 End: 11-20-2023 Admission to same day surgery center 11/20/2023 11:30 AM EDT - 11/20/2023 3:04 PM EDT Surgery Admitting [address] [place] [address] Ronaldo Flood MD, PhD [address] [place] [address] THORACOSCOPY WITH PLEURAL ABRASION Admitting Comment on above: THORACOSCOPY WITH PLEURAL ABRASION Start: 11-20-2023 Subsequent hospital visit by physician 11/20/2023 11:30 AM EDT Hospital Encounter Admitting [address] [place] [address] Ronaldo Flood MD, PhD [address] [facility] [address] [place] [address] Pleural effusion [J90] Admitting Comment on above: Pleural effusion [J90] Start: 11-20-2023 End: 11-20-2023 Thoracoscopy w/dx bx of lung infiltrate unilatrl THORACOSCOPY W/ DIAGNOSTIC BIOPSY(IES) OF LUNG NODULE(S) OR MASS(ES) UNILATERAL Pleural effusion Encounter for other preprocedural examination 11/20/2023 11:30 AM EDT [facility] Start: 11-20-2023 End: 11-20-2023 Thoracoscopy w/pleurodesis THORACOSCOPY WITH PLEURAL ABRASION Pleural effusion Encounter for other preprocedural examination 11/20/2023 11:30 [address] [facility] Start: 11-12-2023 End: 11-12-2023 [...] other preprocedural examination Expected: 10/28/2023, Expires: 10/23/2024 [facility] Comment on above: Expected: 10/28/2023, Expires: Start: 10-28-2023 End: 10-23-2024 CBC W Auto Differential panel - Blood COMPLETE BLOOD COUNT AND DIFFERENTIAL Lab STAT Pleural effusion Encounter for other preprocedural examination Expected: 10/28/2023, Expires: 10/23/2024 [facility] Comment on above: Expected: 10/28/2023, Expires: Start: 10-28-2023 End: 10-23-2024 Comprehensive metabolic 2000 panel - Serum or Plasma COMPREHENSIVE METABOLIC PANEL Lab STAT Pleural effusion Encounter for other preprocedural examination Expected: 10/28/2023, Expires: 10/23/2024 [facility] Comment on above: Expected: 10/28/2023, Expires: Start: 10-28-2023 End: 10-23-2024 CONFIRM BLOOD TYPE CONFIRM BLOOD TYPE Blood Bank STAT Pleural effusion Encounter for other preprocedural examination Expected: 10/28/2023, Expires: 10/23/2024 [facility] Comment on above: Expected: 10/28/2023, Expires: Start: 10-28-2023 End: 10-23-2024 ECG COMPLETE ECG COMPLETE ECG STAT Pleural effusion Encounter for other preprocedural examination Expected: 10/28/2023, Expires: 10/23/2024 [facility] Comment on above: Expected: 10/28/2023, Expires: Start: 10-28-2023 End: 11-22-2024 LUNG DIFFUSION CAPACITY (DLCO) LUNG DIFFUSION CAPACITY (DLCO) PFT STAT Pleural effusion Encounter for other preprocedural examination Expected: 10/28/2023, Expires: 11/22/2024 [facility] Comment on above: Expected: 10/28/2023, Expires: Start: 10-28-2023 End: 11-22-2024 NM Heart Perfusion W multiple states of exercise NM CARDIAC PERF STRESS/EXERCISE Radiology STAT Pleural effusion Encounter for other preprocedural examination Expected: 10/28/2023, Expires: 11/22/2024 [facility] Comment on above: Expected: 10/28/2023, Expires: Start: 10-28-2023 End: 10-23-2024 PT panel - Platelet poor plasma by Coagulation assay PROTHROMBIN TIME Lab STAT Pleural effusion Encounter for other preprocedural examination Expected: 10/28/2023, Expires: 10/23/2024 [facility] Comment on above: Expected: 10/28/2023, Expires: Start: 10-28-2023 End: 11-22-2024 SPIROMETRY WITH DILATOR IF OBSTRUCTED SPIROMETRY WITH DILATOR IF OBSTRUCTED PFT STAT Pleural effusion Encounter for other preprocedural examination Expected: 10/28/2023, Expires: 11/22/2024 [facility] Work Phone: Comment on above: Expected: 10/28/2023, Expires: Start: 10-28-2023 End: 01-27-2024 STAPHYLOCOCCUS AUREUS & MRSA SCREEN, PCR, NASAL STAPHYLOCOCCUS AUREUS & MRSA SCREEN, PCR, NASAL Lab STAT Pleural effusion Encounter for other preprocedural examination Expected: 10/28/2023, Expires: 01/27/2024 [facility] Comment on above: Expected: 10/28/2023, Expires: Start: 10-28-2023 End: 10-23-2024 TYPE AND SCREEN,30 DAY TYPE AND SCREEN,30 DAY Blood Bank STAT Pleural effusion Encounter for other preprocedural examination Expected: 10/28/2023, Expires: 10/23/2024 [facility] Comment on above: Expected: 10/28/2023, Expires: Start: 10-28-2023 End: 10-23-2024 URINALYSIS, DIPSTICK ONLY URINALYSIS, DIPSTICK ONLY Lab STAT Pleural effusion Encounter for other preprocedural examination Expected: 10/28/2023, Expires: 10/23/2024 [facility] Comment on above: Expected: 10/28/2023, Expires: Start: 10-28-2023 End: 11-22-2024 XR Chest PA and Lateral XR CHEST 2V FRONTAL/LAT Radiology STAT Pleural effusion Encounter for other preprocedural examination Expected: 10/28/2023, Expires: 11/22/2024 [facility] Comment on above: Expected: 10/28/2023, Expires: Start: 10-24-2023 End: 10-24-2023 Patient encounter procedure 10/24/2023 12:00 PM EDT Office Visit Thoracic Clinic [address] [place] [address] Ronaldo Flood MD, PhD [address] [facility] [address] [place] [address] pleural effusion Thoracic Clinic Comment on above: pleural effusion Start: 10-01-2023 Acid Fast Culture Acid Fast Culture [facility] Start: 09-04-2023 Acid Fast Culture Acid Fast Culture [facility] Start: 06-17-2023 Advance Directive Discussion Advance Directive Discussion [facility] Start: 06-17-2023 Behavioral Health Screening Behavioral Health Screening [facility] Start: 02-15-2023 COVID-19 Vaccine ( season) COVID-19 Vaccine ( season) [facility] Start: 02-15-2023 Covid-19 Vaccine ( season) Covid-19 Vaccine ( season) [facility] Start: 02-15-[address] [facility] Start: 02-11-2023 End: 02-11-2023 Patient encounter procedure 02/11/2023 1:15 PM EDT Office Visit [facility] [address] [place] [address] Margie Edouard DO [address] [place] [address] [facility] Start: 01-14-2023 End: 01-14-2023 Patient encounter procedure 01/14/2023 1:15 PM EDT Office Visit [facility] [address] [place] [address] Margie Edouard DO [address] [place] [address] [facility] Start: 11-19-2022 End: 11-19-2022 Patient encounter procedure 11/19/2022 1:30 PM EDT Office Visit [facility] [address] [place] [address] Stefanomarleny Margie Fernandez, DO [address] [place] [address] [facility] Start: 10-08-2022 End: 10-08-2022 Patient encounter procedure 10/08/2022 Office Visit Orthopedic Surgery Margie Edouard, DO [address] [place] [address] [facility] Start: 02-15-2022 Influenza vaccination Sequential Influenza Vaccine (#1) [facility] Start: 07-05-2021 COVID-19 Vaccine (4 - Booster for Pfizer series) COVID-19 Vaccine (4 - Booster for Pfizer series) [facility] Start: 07-05-2021 COVID-19 Vaccine (4 - Pfizer series) COVID-19 Vaccine (4 - Pfizer series) [facility] Start: 07-05-2021 COVID-19 Vaccine (5 - Booster) COVID-19 Vaccine (5 - Booster) [facility] Start: 02-15-2021 Influenza vaccination Sequential Influenza Vaccine (#1) [facility] Start: 07-01-2020 End: 07-01-2020 Office Visit 07/01/2020 Office Visit Orthopedic Surgery Nena Huff, DO [address] [place] [address] [phone] [facility] Start: 02-16-2020 Influenza vaccination given Sequential Influenza Vaccine (#1) [facility] Start: 06-30-2019 Ambulatory 06/30/2019 Office Visit Orthopedic Surgery Karthik Calloway MD [address] [place] [address] [phone] [facility] Start: 02-15-2019 Influenza vaccination given SEQUENTIAL INFLUENZA VACCINE (#1) [facility] Start: 10-25-2018 Administration of herpes zoster vaccine Zoster Vaccines (2 of 2) [facility] Start: 10-25-2018 Shingrix Vaccine (2 of 2) Shingrix Vaccine (2 of 2) [facility] Start: 08-31-2018 Urine microalbumin profile DTaP,Tdap,Td Vaccine (1 - Tdap) [facility] Start: 07-30-2017 Ambulatory 07/30/2017 Office Visit Orthopedic Surgery Karthik Calloway MD [address] [place] [address] [phone] [facility] Start: 02-15-2017 Influenza vaccination SEQUENTIAL INFLUENZA VACCINE (#1) [facility] Work Phone: Start: 02-15-2017 SEQUENTIAL INFLUENZA VACCINE (#1) SEQUENTIAL INFLUENZA VACCINE (#1) [facility] Work Phone: Start: 2016 Fall risk assessment Falls Risk Assessment [facility] Start: 2016 Pneumococcal vaccination PNEUMOCOCCAL VACCINE AGE 65+ (1 of 2 - PCV13) [facility] Work Phone: Start: 2016 PNEUMOCOCCAL VACCINE AGE 65+ (1 of 2 - PCV13) PNEUMOCOCCAL VACCINE AGE 65+ (1 of 2 - PCV13) [facility] Work Phone: Start: 2011 Hepatitis B Vaccine (1 of 3 - Risk 3-dose series) Hepatitis B Vaccine (1 of 3 - Risk 3-dose series) [facility] Start: 2011 RSV Vaccine (1 - 1-dose 60+ series) RSV Vaccine (1 - 1-dose 60+ series) [facility] Start: 2011 RSV Vaccine (1 - Risk 60-74 years 1-dose series) RSV Vaccine (1 - Risk 60-74 years 1-dose series) [facility] Start: 2011 Zoster vacc, sc ZOSTER VACCINE [facility] Work Phone: Start: 2001 Screening for malignant neoplasm of colon [facility] Start: 1996 Diabetes Screening Diabetes Screening [facility] Start: 1996 Screening for malignant neoplasm of colon [facility] Start: 1986 Lipid panel Lipid Screening [facility] Start: 1970 Hepatitis A Vaccine (1 of 2 - Risk 2-dose series) Hepatitis A Vaccine (1 of 2 - Risk 2-dose series) [facility] Start: 1970 Urine microalbumin profile DTaP,Tdap,Td Vaccine (1 - Tdap) [facility] Start: 1969 Annual PCP Team Chronic Disease Visit Annual PCP Team Chronic Disease Visit [facility] Start: 1969 Anxiety Screening Anxiety Screening [facility] Start: 1969 BP Controlled (<130/80) BP Controlled (<130/80) [facility] in Start: 1969 Depression Screening Depression Screening [facility] Start: 1969 Hepatitis C antibody, confirmatory test Hepatitis C Screening [facility] Start: 1969 Hepatitis C screening Hepatitis C Screening [facility] Start: 1967 COVID-19 Vaccine (1 of 2) COVID-19 Vaccine (1 of 2) [facility] Start: 1963 Adolescent depression screening assessment Depression Screening (PHQ9) [facility] Start: 1963 Depression screening using PHQ-9 (Patient Health Questionnaire 9) score [facility] Start: 1956 COVID-19 Vaccine (1) COVID-19 Vaccine (1) [facility] Start: 1954 History and physical examination, annual for health maintenance Wellness Visit [facility] Start: 1954 Medicare Wellness Visit Medicare Wellness Visit [facility] Start: [address] [facility] Work Phone: Start: 1951 Fall risk assessment Falls Risk Assessment [facility] Start: 1951 Hepatitis C antibody, confirmatory test HEPATITIS C SCREENING [facility] Start: 1951 Prostate specific antigen measurement PSA Level [facility] Start: 1951 Screening for malignant neoplasm of colon [facility] Start: 1951 TETANUS EVERY 10 YR TETANUS EVERY [address] [facility] Work Phone: Start: 1951 End: 1951 HEPATITIS C SCREENING HEPATITIS C SCREENING [facility] Work Phone: Start: 1951 Screening [address]COPY [facility] Work Phone: Start: 1951 End: 1951 Tetanus vaccination [facility] Albumin [Mass/volume ] in Body fluid ALBUMIN, BODY FLUID Lab Routine Pleural effusion Ordered: 07/20/2024 [facility] Comment on above: Ordered: 07/20/2024 Albumin [Mass/volume ] in Body fluid ALBUMIN, BODY FLUID Lab Routine Pleural effusion Ordered: 07/20/2024 [facility] Comment on above: Ordered: 07/20/2024 BODY FLUID CELL COUNT BODY FLUID CELL COUNT Lab Routine Pleural effusion Ordered: 07/20/2024 [facility] Comment on above: Ordered: 07/20/2024 Comprehensive metabo lic 2000 panel - Serum or Plasma [facility] CT Chest W contrast IV [facility] End: 04-16-2025 CT Chest W contrast IV CT CHEST W IVCON Radiology Routine Interstitial pulmonary disease (HCC) 1 Occurrences starting 03/17/2024 until 04/16/2025 [facility] Work Phone: Comment on above: 1 Occurrences starting 03/17/2024 until 04/16/2025 CT Chest W contrast IV CT CHEST W IVCON Radiology Routine Interstitial pulmonary disease (HCC) 03/17/2024 4:02 PM EDT [facility] End: 06-17-2025 CT Chest WO contrast CT CHEST WO IVCON Radiology Routine Pleural effusion Lung nodule 1 Occurrences starting 05/18/2024 until 06/17/2025 [facility] Comment on above: 1 Occurrences starting 05/18/2024 until 06/17/2025 End: 11-20-2025 CT Small bowel W contrast PO and W contrast IV CT ENTEROGRAPHY W IVCON Radiology Routine Other ascites Generalized abdominal pain 1 Occurrences starting 10/21/2024 until 11/20/2025 [facility] Comment on above: 1 Occurrences starting 10/21/2024 until 11/20/2025 End: 03-17-2025 Echocardiography ECHO Cardiology Routine Pericarditis, unspecified chronicity, unspecified type 1 Occurrences starting 03/17/2024 until 03/17/2025 [facility] Comment on above: 1 Occurrences starting 03/17/2024 until 03/17/2025 End: 04-20-2025 EGD DIAGNOSTIC EGD DIAGNOSTIC Endoscopy Routine Diarrhea, unspecified type 1 Occurrences starting 04/20/2024 until 04/20/2025 [facility] Work Phone: Comment on above: 1 Occurrences starting 04/20/2024 until 04/20/2025 End: 08-24-2025 EGD DIAGNOSTIC EGD DIAGNOSTIC Endoscopy Routine Esophageal dysphagia 1 Occurrences starting 08/24/2024 until 08/24/2025 [facility] Comment on above: 1 Occurrences starting 08/24/2024 until 08/24/2025 FAT, FECAL QUAL FAT, FECAL QUAL Lab Routine Other ascites Generalized abdominal pain Ordered: 10/21/2024 [facility] Work Phone: Comment on above: Ordered: 10/21/2024 End: 04-20-2025 Flexible sigmoidoscopy study COLONOSCOPY DIAGNOSTIC Endoscopy Routine Diarrhea, unspecified type 1 Occurrences starting 04/20/2024 until 04/20/2025 [facility] Comment on above: 1 Occurrences starting 04/20/2024 until 04/20/2025 FLOW CYTOMETRY FOR LEUKEMIA/LYMPHOMA (FCLL) PERFORMABLE FLOW CYTOMETRY FOR LEUKEMIA/LYMPHOMA (FCLL) PERFORMABLE Lab Routine Pleural effusion 05/18/2024 12:52 PM EST [facility] FLOW CYTOMETRY FOR LEUKEMIA/LYMPHOMA (FCLL) PERFORMABLE FLOW CYTOMETRY FOR LEUKEMIA/LYMPHOMA (FCLL) PERFORMABLE Lab Routine Pleural effusion Pleuritis Lymphocytic colitis Pericardial effusion (noninflammatory) Interstitial pulmonary disease (HCC) Ordered: 06/22/2024 [facility] Comment on above: Ordered: 06/22/2024 Lactate dehydrogenas e [Enzymatic activity/volume] in Body fluid LACTATE DEHYDROGENASE, BODY FLUID Lab Routine Pleural effusion Ordered: 07/20/2024 [facility] Work Phone: Comment on above: Ordered: 07/20/2024 Lactate dehydrogenas e [Enzymatic activity/volume] in Body fluid LACTATE DEHYDROGENASE, BODY FLUID Lab Routine Pleural effusion Ordered: 07/20/2024 [facility] Comment on above: Ordered: 07/20/2024 End: 12-13-2025 Liver stiffness by US.transient elastography US ELASTOGRAPHY LIVER Radiology Routine Hepatomegaly 1 Occurrences starting 11/13/2024 until 12/13/2025 [facility] Comment on above: 1 Occurrences starting 11/13/2024 until 12/13/2025 Liver stiffness by US.transient elastography US ELASTOGRAPHY LIVER Radiology Routine Hepatomegaly 11/23/2024 3:05 PM EDT [facility] MANUAL DIFFERENTIAL, BODY FLUID MANUAL DIFFERENTIAL, BODY FLUID Lab Routine Pleural effusion 05/18/2024 12:52 PM EST [facility] End: 02-04-2025 NITRIC OXIDE, EXHALED NITRIC OXIDE, EXHALED PFT Routine Chronic cough Pleural effusion 1 Occurrences starting 01/06/2024 until 02/04/2025 [facility] Work Phone: Comment on above: 1 Occurrences starting 01/06/2024 until 02/04/2025 pH of Body fluid PH BODY FLUID L ab Routine Pleural effusion Ordered: 07/20/2024 [facility] Comment on above: Ordered: 07/20/2024 PH PLEURAL FLUID (FO R USE OUTSIDE OF [facility]) PH PLEURAL FLUID (FOR USE OUTSIDE OF [facility]) Lab Routine Pleural effusion Ordered: 07/20/2024 [facility] Comment on above: Ordered: 07/20/2024 Protein [Mass/volume ] in Body fluid PROTEIN, BODY FLUID Lab Routine Pleural effusion Ordered: 07/20/2024 [facility] Comment on above: Ordered: 07/20/2024 Protein [Mass/volume ] in Body fluid PROTEIN, BODY FLUID Lab Routine Pleural effusion Ordered: 07/20/2024 [facility] Comment on above: Ordered: 07/20/2024 Protein/Creatinine [ Mass Ratio] in Urine PROTEIN / CREATININE RATIO Lab Routine Elevated serum creatinine 10/15/2024 10:09 AM EDT [facility] Work Phone: RF Guidance for transjugular biopsy of Liver-- W contrast IV IR TRANSJUGULAR LIVER BX W/PRESS Radiology Routine Elevated alkaline phosphatase level Ordered: 12/22/2024 [facility] Work Phone: Comment on above: Ordered: 12/22/2024 End: 11-26-2024 SIX MINUTE WALK SIX MINUTE WALK PFT Routine Pleural effusion Encounter for other preprocedural examination 1 Occurrences starting 10/28/2023 until 11/26/2024 [facility] Comment on above: 1 Occurrences starting 10/28/2023 until 11/26/2024 End: 02-04-2025 SPIROMETRY WITH DILATOR IF OBSTRUCTED SPIROMETRY WITH DILATOR IF OBSTRUCTED PFT Routine Chronic cough Pleural effusion 1 Occurrences starting 01/06/2024 until 02/04/2025 [facility] Comment on above: 1 Occurrences starting 01/06/2024 until 02/04/2025 SPIROMETRY WITH DILA TOR IF OBSTRUCTED SPIROMETRY WITH DILATOR IF OBSTRUCTED PFT Routine Chronic cough Pleural effusion 03/17/2024 8:07 AM EDT [facility] Work Phone: SURGICAL PATHOLOGY [facility] Work Phone: Comment on above: Release Upon Ordering for 1 Occurrences starting 04/28/2024, 1 completed Tissue Pathology bio psy report [facility] Work Phone: Comment on above: Release Upon Ordering for 1 Occurrences starting 09/25/2024, 1 completed UA DIP, URINE (POC) UA DIP, URIN E (POC) Lab Routine Screening for genitourinary condition 1 Occurrences starting 10/15/2024 [facility] Work Phone: Comment on above: 1 Occurrences starting 10/15/2024 End: 11-14-2025 US Abdomen RUQ US ABD RIGHT UPPER QUADRANT Radiology Routine Elevated alkaline phosphatase level 1 Occurrences starting 10/15/2024 until 11/14/2025 [facility] Work Phone: Comment on above: 1 Occurrences starting 10/15/2024 until 11/14/2025 US Abdomen RUQ US ABD RIGHT UPP ER QUADRANT Radiology Routine Elevated alkaline phosphatase level 10/23/2024 2:18 PM EDT [facility] Work Phone: End: 12-13-2025 US Abdomen RUQ US ABD RIGHT UPPER QUADRANT Radiology Routine Hepatomegaly 1 Occurrences starting 11/13/2024 until 12/13/2025 [facility] Comment on above: 1 Occurrences starting 11/13/2024 until 12/13/2025 US Abdomen RUQ US ABD RIGHT UPP ER QUADRANT Radiology Routine Hepatomegaly 11/23/2024 3:05 PM EDT [facility] Work Phone: US Chest limited US CHEST (POC) H23 USE ONLY Imaging Diagnostic Routine Pleural effusion Pleuritis Lymphocytic colitis Pericardial effusion (noninflammatory) Interstitial pulmonary disease (HCC) Ordered: 06/22/2024 [facility] Work Phone: Comment on above: Ordered: 06/22/2024 US Heart Transthoracic [facility] End: 11-20-2025 US Lower extremity artery - bilateral PVR LEG [facility] Vascular Lab Routine Extremity cyanosis 1 Occurrences starting 11/20/2024 until 11/20/2025 [facility] Comment on above: 1 Occurrences starting 11/20/2024 until 11/20/2025 End: 11-20-2025 US Lower extremity veins - bilateral US LEG VEIN DVT [facility] Vascular Lab Routine Extremity cyanosis 1 Occurrences starting 11/20/2024 until 11/20/2025 [facility] Comment on above: 1 Occurrences starting 11/20/2024 until 11/20/2025 End: 11-20-2025 US Vein - bilateral US VENOUS INCOMPETENCY [facility] Vascular Lab Routine Extremity cyanosis 1 Occurrences starting 11/20/2024 until 11/20/2025 [facility] Work Phone: Comment on above: 1 Occurrences starting 11/20/2024 until 11/20/2025 End: 03-19-2026 US.doppler Abdominal vessels US ABD LIVER VASCULAR Radiology Routine Other ascites 1 Occurrences starting 02/17/2025 until 03/19/2026 [facility] Work Phone: Comment on above: 1 Occurrences starting 02/17/2025 until 03/19/2026 End: 03-19-2026 US.doppler Unspecified body region US DOPPLER COMPLETE Radiology Routine Other ascites 1 Occurrences starting 02/17/2025 until 03/19/2026 [facility] Comment on above: 1 Occurrences starting 02/17/2025 until 03/19/2026 End: 12-28-2024 XR Chest PA and Lateral XR CHEST 2V FRONTAL/LAT Radiology Routine Follow-up exam 1 Occurrences starting 11/29/2023 until 12/28/2024 [facility] Work Phone: Comment on above: 1 Occurrences starting 11/29/2023 until 12/28/2024 XR Chest PA and Lateral XR CHEST 2V FRONTAL/LAT Radiology Routine Surgery follow-up 11/29/2023 2:19 PM EDT [facility] Work Phone: XR Chest PA and Lateral XR CHEST 2V FRONTAL/LAT Radiology Routine Follow-up exam 12/03/2023 12:25 PM EDT [facility] Work Phone: XR Chest PA and Lateral XR CHEST 2V FRONTAL/LAT Radiology Routine Pleural effusion 12/13/2023 1:18 PM EDT [facility] Work Phone: XR Chest PA and Lateral XR CHEST 2V FRONTAL/LAT Radiology Routine Pleural effusion 12/20/2023 1:13 PM EDT [facility] Work Phone: End: 02-04-2025 XR Chest PA and Lateral XR CHEST 2V FRONTAL/LAT Radiology Routine Pleural effusion 1 Occurrences starting 01/06/2024 until 02/04/2025 [facility] Work Phone: Comment on above: 1 Occurrences starting 01/06/2024 until 02/04/2025 XR Chest PA and Lateral XR CHEST 2V FRONTAL/LAT Radiology Routine Recurrent 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 01/06/2024 1:09 PM EDT [facility] Work Phone: End: 03-05-2025 XR Chest PA and Lateral XR CHEST 2V FRONTAL/LAT Radiology Routine Pleural effusion 1 Occurrences starting 02/04/2024 until 03/05/2025 [facility] Work Phone: Comment on above: 1 Occurrences starting 02/04/2024 until 03/05/2025 XR Chest PA and Lateral XR CHEST 2V FRONTAL/LAT Radiology Routine Chronic bronchitis, unspecified chronic bronchitis type (HCC) 03/17/2024 8:41 AM EDT [facility] Work Phone: End: 11-26-2025 XR Chest PA and Lateral XR CHEST 2V FRONTAL/LAT Radiology Routine Pleural effusion 1 Occurrences starting 10/28/2024 until 11/26/2025 [facility] Work Phone: Comment on above: 1 Occurrences starting 10/28/2024 until 11/26/2025 Immunizations Immunization Date Immunization Notes Care Provider [facility] 05-27-2024 influenza, high dose seasonal, preservative-free Jose Antonio Hopper MD Work Phone: [facility] 05-27-2024 influenza, seasonal, injectable Jose Antonio Hopper MD Work Phone: [facility] 05-27-2024 respiratory syncytia l virus (RSV) vaccine, adjuvanted (AREXVY) Jose Antonio Hopper MD Work Phone: [facility] 05-27-2024 tetanus toxoid, redu ariel diphtheria toxoid, and acellular pertussis vaccine, adsorbed Jose Antonio Hopper MD Work Phone: [facility] 05-27-2024 influenza virus vaccine, unspecified formulation Jose Antonio Hopper MD Work Phone: [facility] 05-10-2021 COVID-19 mRNA, Comirnaty (Pfizer) [facility] 09-13-2020 COVID-19 original vaccine, age 12+ yr, monovalent (PFIZER-BIONTECH - PURPLE TOP) Jose Antonio Hopper MD Work Phone: [facility] 09-12-2020 COVID-19 mRNA, Comirnaty (Pfizer) DO [facility] Work Phone: [facility] 08-22-2020 COVID-19 original vaccine, age 12+ yr, monovalent (PFIZER-BIONTECH - PURPLE TOP) Jose Antonio Hopper MD Work Phone: [facility] 08-15-2020 COVID-19 mRNA, Comirnaty (Pfizer) DO [employer] Work Phone: [facility] 05-09-2020 influenza virus vaccine, split virus (incl. purified surface antigen) Yuli Mariscal Other [employer] Other 05-09-2020 influenza virus vaccine, unspecified formulation DO [employer] Work Phone: [facility] 05-09-2020 Seasonal trivalent influenza vaccine, adjuvanted, preservative free Jose Antonio Hopper MD Work Phone: [facility] 08-30-2018 tetanus and diphther ia toxoids, adsorbed, preservative free, for adult use (5 Lf of tetanus toxoid and 2 Lf of diphtheria toxoid) Yuli Loida Other [facility] 08-30-2018 zoster vaccine recombinant Jose Antonio Hopper MD Work Phone: [facility] 06-04-2018 tetanus and diphther ia toxoids, adsorbed, preservative free, for adult use (5 Lf of tetanus toxoid and 2 Lf of diphtheria toxoid) Yuli Mariscal Other [facility] 02-03-2018 pneumococcal polysaccharide vaccine, 23 valent Yuli Mariscal Other [facility] 11-26-2016 pneumococcal conjuga te vaccine, 13 valent Yuli Mariscal Other [facility] Payers Date Payer Category Payer Self-pay [id number] 2023 Medicare (Managed Care) AETNA DE DICARE [id number] 2021 Medicaid AETNA MEDICARE A DVANTAGE [id number] 2016 Medicare AETNA MANAGED [place] DICGINA AETNA MEDICARE PLAN (PPO) [id number] 2016-Present [id number] 2016 Medicare AETNA MANAGED [place] DICARE AETNA MEDICARE PLAN (PPO) [id number] 2016-Present [id number] 2016 Medicare [id number] 2016 Medicare PPO AETNA MEDICARE P MARIANO (PPO) [id number] 1959 Medicare [id number] 1959 Self-pay [id number] 1951 Unknown [id number] 2.16840.1.493360.3.579.2. 593 1951 Unknown [id number] 2.16840.1.327449.3.579.2. 903 1951 Unknown [id number] 2.16.840.1.703280.3.579.2. 903 1951 Unknown [id number] 2.16840.1.816695.3.579.2. 903 1951 Unknown [id number] 2.16.840.1.663038.3.579.2. 903 1951 Unknown [id number] 2.16.840.1.417406.3.579.2. 903 1951 Unknown [id number] 2.16.840.1.667072.3.579.2. 903 1951 Unknown [id number] 2.16.840.1.148356.3.579.2. 90 1951 Unknown [id number] 2.16.840.1.615067.3.579.2. 90 1951 Unknown [id number] 2.16.840.1.824565.3.579.2. 90 1951 Unknown [id number] 2.16.840.1.402354.3.579.2. 90 1951 Unknown [id number] 2.16.840.1.423310.3.579.2. 125 1951 Unknown [id number] 2.16.840.1.434502.3.579.2. 125 1951 Unknown [id number] 2.16.840.1.054969.3.579.2. 1259 1951 Unknown [id number] 2.16.840.1.236984.3.579.2. 125 1951 Unknown [id number] 2.16.840.1.360855.3.579.2. 1259 1951 Unknown [id number] 2.16.840.1.996734.3.579.2. 1259 Medicare [id number] 2.16.840.1.905592.3.249.13 Unknown [id number] 2.16.840.1.829791.3.579.2. 593 Unknown [id number] 2.16.840.1.981227.3.579.2. 531 Unknown [id number] 2.16.840.1.731484.3.579.2. 531 Unknown [id number] 2.16.840.1.041154.3.579.2. 531 Social History Date Type Detail Facility Start: 07-30-2017 End: 01-01-2023 Tobacco smoking status NHIS Never smoker [facility] Work Phone: Start: 1950 Sex Assigned At Not on file [facility] Work Phone: Start: 07-01-2019 End: 02-25-2025 Alcohol intake Current drinker of alcohol (finding) [facility] Start: 07-20-2020 End: 01-01-2023 Tobacco use and exposure Never used [facility] Start: 08-18-2022 End: 10-08-2022 Exposure to SARS-CoV-2 (event) Not sure [facility] Start: 08-28-2022 End: 03-17-2025 History of Social function [facility] Work Phone: Start: 08-28-2022 End: 03-17-2025 Tobacco use panel [facility] Work Phone: Start: 1950 Sex Assigned At Male F [facility] Start: 12-05-2020 National Score (1-10 0), lower number is lower risk Not on file [facility] Has the [employer], [employer], oil, or water company threatened to shut off services in your home in past 12Mo No [facility] Work Phone: (I/We) worried wheth er (my/our) food would run out before (I/we) got money to buy more. Never true [facility] Start: 01-15-2024 Alcohol Comment socially, no d rink since 06/2023 [facility] Start: 09-11-2024 Sex Male (finding) [facility] Start: 01-07-2025 Gender identity Identifies as male gender (finding) [facility] Medical Equipment Procedure Code Equipment Code Equipment Origin al Text Equipment Identifier Dates Cement 1 X 40 Palacos Bone Single - [id number] Start: 08-23-2014 Stem Short Cemen prerna Persona - [id number] Start: 08-23-2014 Stem Sz F Tib 5d eg Nonpor Lt Persona - [id number] Start: 08-23-2014 Femoral Sz9 Lt N rw Ps Cmt Ccr Persona - [id number] Start: 08-23-2014 Patella 32mm All Poly Persona - [id number] Start: 08-23-2014 Articular Surf E f 6-9 14mm Lt Ps Vivacit-E Persona - [id number] Start: 08-23-2014 Stem Short Cemen prerna Persona - [id number] Start: 06-25-2016 Patella 32mm All Poly Vivacit-E - [id number] Start: 06-25-2016 Articular Surf 1 4mm 6-9ef Rt Cps Ve Persona - [id number] Start: 06-25-2016 Simplex Hv With Gentamicin Cement Start: 06-25-2016 Stem Sz F Tib 5d eg Nonpor Rt Persona - [id number] Start: 06-25-2016 Femoral Sz9 Rt N rw Ps Cmt Ccr Persona - [id number] Start: 06-25-2016 Cement 1 X 40 Palacos Bone Single - [id number] Start: 08-23-2014 Stem Short Cemen prerna Persona - [id number] Start: 08-23-2014 Stem Sz F Tib 5d eg Nonpor Lt Persona - [id number] Start: 08-23-2014 Femoral Sz9 Lt N rw Ps Cmt Ccr Persona - [id number] Start: 08-23-2014 Patella 32mm All Poly Persona - [id number] Start: 08-23-2014 Articular Surf E f 6-9 14mm Lt Ps Vivacit-E Persona - [id number] Start: 08-23-2014 Stem Short Cemen prerna Persona - [id number] Start: 06-25-2016 Patella 32mm All Poly Vivacit-E - [id number] Start: 06-25-2016 Articular Surf 1 4mm 6-9ef Rt Cps Ve Persona - [id number] Start: 06-25-2016 Simplex Hv With Gentamicin Cement Start: 06-25-2016 Stem Sz F Tib 5d eg Nonpor Rt Persona - [id number] Start: 06-25-2016 Femoral Sz9 Rt N rw Ps Cmt Ccr Persona - [id number] Start: 06-25-2016 Cement 1 X 40 Pal[place]os Bone Single - [id number] Start: 08-23-2014 Stem Short Cemen prerna Persona - [id number] Start: 08-23-2014 Stem Sz F Tib 5d eg Nonpor Lt Persona - [id number] Start: 08-23-2014 Femoral Sz9 Lt N rw Ps Cmt Ccr Persona - [id number] Start: 08-23-2014 Patella 32mm All Poly Persona - [id number] Start: 08-23-2014 Articular Surf E f 6-9 14mm Lt Ps Vivacit-E Persona - [id number] Start: 08-23-2014 Stem Stephenie graff Persona - [id number] Start: 06-25-2016 Patella 32mm All Poly Vivacit-E - [id number] Start: 06-25-2016 Articular Surf 1 4mm 6-9ef Rt Cps Ve Persona - [id number] Start: 06-25-2016 Simplex Hv With Gentamicin Cement Start: 06-25-2016 Stem Sz F Tib 5d eg Nonpor Rt Persona - [id number] Start: 06-25-2016 Femoral Sz9 Rt N rw Ps [facility] Ccr Persona - [id number] Start: 06-25-2016 Cement 1 X 40 Palacos Bone Single - [id number] Start: 08-23-2014 Stem Stephenie graff Persona - [id number] Start: 08-23-2014 Stem Sz F Tib 5d eg Nonpor Lt Persona - [id number] Start: 08-23-2014 Femoral Sz9 Lt N rw Ps [facility] Ccr Persona - [id number] Start: 08-23-2014 Patella 32mm All Poly Persona - [id number] Start: 08-23-2014 Articular Surf E f 6-9 14mm Lt Ps Vivacit-E Persona - [id number] Start: 08-23-2014 Stem Stephenie graff Persona - [id number] Start: 06-25-2016 Patella 32mm All Poly Vivacit-E - [id number] Start: 06-25-2016 Articular Surf 1 4mm 6-9ef Rt Cps Ve Persona - [id number] Start: 06-25-2016 Simplex Hv With Gentamicin Cement [id number] Start: 06-25-2016 Stem Sz F Tib 5d eg Nonpor Rt Persona - [id number] Start: 06-25-2016 Femoral Sz9 Rt N rw Ps Cmt Ccr Persona - [id number] Start: 06-25-2016 Goals Date Patient Goal Desired Activity /State Personal health goal Functional Status Date Assessment Result Facility 12-26-2023 Are you deaf, or do you have serious difficulty hearing No 12/26/2023 4:30 PM EDT Rojas Cline RN No [facility] 12-26-2023 Are you blind, or do you have serious difficulty seeing, even when wearing glasses No 12/26/2023 4:30 PM EDT Rojas Cline RN No [facility] 12-26-2023 Do you have serious difficulty walking or climbing stairs No 12/26/2023 4:30 PM EDT Rojas Cline RN No [facility] 12-26-2023 Do you have difficul ty dressing or bathing No 12/26/2023 4:30 PM EDT Rojas Cline RN [facility] 12-26-2023 Because of a physica l, mental, or emotional condition, do you have difficulty doing errands alone such as visiting a physician's office or shopping No 12/26/2023 4:30 PM EDT Rojas Cline RN No [facility] Mental Status Date Assessment Result Facility 12-26-2023 Because of a physica l, mental, or emotional condition, do you have serious difficulty concentrating, remembering, or making decisions No 12/26/2023 4:30 PM EDT Rojas Cline RN No [facility] Clinical Notes 08-28-2022 to 03-29-2025 Jamel Chowdary DPM - 03/25/2025 11:15 AM EDTPatient InstructionsStjuancarlos Chowdary DPM - 03/17/2025 10:15 AM EDTSjeniffer Chowdary DPM - 03/12/2025 8:45 AM EDT Note Date & Type Note Facility 03-29-2025 Note [facility] 03-25-2025 History of Present illness Narrative Images from the original note were not included. Subjective Patient ID: Willie Raymundo is a 75 y.o. male who presents [...] at bedtime Do not crush, chew, or split., Disp: , Rfl: Multiple Vitamins-Minerals (MULTIVITAMIN ADULTS [...] Laterality Date CATARACT EXTRACTION Bilateral 10/2022 Dr. Bajwa PERFUSION LUNG Right 11/20/2023 cath removed 11-19-2024 REPLACEMENT TOTAL KNEE ONCOLOGIC Bilateral 2014, 2016 Family History Family History Problem Relation [...] resolution of redness and swelling; with no appreciable warmth. Soft tissue envelope appears well-perfused. TDO [...] fracture or stress fracture changes. 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 Assessment/Plan [...] the wound daily and apply mupirocin ointment. Band-Aid dressing as necessary. Offloading: Darco shoe x [...] subcutaneous, bleeding granular tissue; excising devitalized, dystrophic, non-viable, keratotic, fibrotic and eschar tissue; reducing direct [...] or corrected. Thank you for your understanding. Jamel Chowdary DPM documented in this encounter [facility] 03-25-2025 Instructions Jamel Chowdary DPM - 03/25/2025 11:15 AM EDT As noted documented in this encounter [facility] 03-24-2025 Note [facility] 03-17-2025 History of Present illness Narrative Images from the original note were not included. Subjective Patient ID: Willie Raymundo is a 75 y.o. male who presents for No chief complaint on file.. HPI Follow-up assessment: Ulceration with cellulitis 2nd digit left foot. Accompanied by his spouse. Reports good compliance with Augmentin therapy, noting no adverse effects. Dressing has remained in place, clean and dry. Patient denies streaking or constitutional symptoms. Medications Current Outpatient Medications: allopurinol (Zyloprim) 300 [...] at bedtime Do not crush, chew, or split., Disp: , Rfl: Multiple Vitamins-Minerals (MULTIVITAMIN ADULTS [...] Laterality Date CATARACT EXTRACTION Bilateral 10/2022 Dr. Bajwa PERFUSION LUNG Right 11/20/2023 cath removed 11-19-2024 REPLACEMENT TOTAL KNEE ONCOLOGIC Bilateral 2014, 2016 Family History Family History Problem Relation [...] located on the distal aspect of the digit; appears notably smaller. The wound bed is well hydrated, clean and granular without probing or tracking. There is no exposed bone. Interval decrease in erythema both area and intensity; now localized distal to the MTP joint. Interval decrease in edema. Soft tissue envelope appears well-perfused. TDO deformity. Wound measurements: 03/17/2025: 0.7 x 0.3 x [...] fracture or stress fracture changes. 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 Assessment/Plan Major stage II decubitus ulceration 2nd digit left foot. Localized cellulitis left foot. Plan: Review of clinical findings, etiology and contributing/aggravating factors, high-risk nature of the condition, favorable response to date, treatment strategy, rationale and objectives. Complete Augmentin therapy twice daily as prescribed. 2nd digit left foot: Mechanical cleansing saline irrigation. Silver alginate dressing: Intact, clean and dry x 5 days. Instructions to then cleanse the wound daily and apply Neosporin ointment or equivalent. Band-Aid dressing as necessary. Offloading: Darco shoe. Cane or walker assist for balance. Follow up: 2 weeks; sooner if condition worsens Procedure: This note was created with the assistance of a speech recognition program. While intending to generate a timely document that accurately reflects the content of the visit, no guarantee can be provided that every grammatical or spelling mistake has been or will be identified or corrected. Thank you for your understanding. Jamel Chowdary DPM documented in this encounter [facility] 03-16-2025 Note [facility] 03-12-2025 History of Present illness Narrative Images from the original note were not included. Subjective Patient ID: Willie Raymundo is a 74 y.o. male who presents for Toe Problem (PT is here today with his spouse for wound distal Lt 2nd toe, he states it is painful for him. First noticed this Saturday evening. PCP rx'd augmentin, per redness has improved./SS: 10.5-11). HPI Initial patient encounter and assessment. Accompanied by his spouse. Chief complaint: Redness and swelling 2nd digit left foot with recent extension to the forefoot. Painful as well. Denies injury or trauma. He does note a significant increase in walking activity earlier this week; with redness and swelling developing the following day; present 2 or 3 days total now. Reports a longstanding corn distal aspect of the same digit, several years duration, with no particular problems or concerns. Placed yesterday on Augmentin therapy twice daily by Dr. Mariscal (PCP); with decreasing redness and swelling noted. Patient denies streaking or constitutional symptoms. First such episode of this nature. Medications Current Outpatient Medications: allopurinol (Zyloprim) 300 MG tablet, Take 300 mg by mouth at bedtime, Disp: , Rfl: Ascorbic Acid (vitamin C) 500 MG tablet, Take 500 mg by mouth Daily, Disp: , Rfl: CALCIUM MAGNESIUM ZINC PO, [...] at bedtime Do not crush, chew, or split., Disp: , Rfl: Multiple Vitamins-Minerals (MULTIVITAMIN ADULTS [...] by mouth at bedtime, Disp: , Rfl: atorvastatin (Lipitor) 10 MG tablet, Take 10 mg by mouth at bedtime. (Patient not taking: Reported on 03/12/2025), Disp: , Rfl: Allergies Tramadol and Oxycodone-acetaminophen Past Surgical History Past Surgical History: Procedure Laterality Date CATARACT EXTRACTION Bilateral 10/2022 Dr. Bajwa PERFUSION LUNG Right 11/20/2023 cath removed 11-19-2024 REPLACEMENT TOTAL KNEE ONCOLOGIC Bilateral 2014, 2016 Family History Family History Problem Relation Name Age of Onset Melanoma Neg Hx Objective General assessment: Alert and oriented. Pleasant disposition. Independently ambulatory wearing [employer] slip-on footwear. Accompanied by his spouse, Eden. Vascular: DP [...] located on the distal aspect of the digit; initially presenting as a distal HD lesion. The wound bed is well hydrated, clean and predominantly granular, with minimal serous exudate. Unremarkable for pustular drainage, malodor or ischemic necrosis. There is no exposed bone. The wound margins are raised, dystrophic and hyperkeratotic. Localized non-blanchable erythema and warmth of the 2nd digit; extending proximal to the MTP joint and onto the dorsal forefoot. Mild localized swelling of the digit without soft tissue fluctuance. Soft tissue envelope appears well-perfused. TDO deformity. Post-debridement measurements: 03/12/2025: 0.9 x 0.7 x [...] fracture or stress fracture changes. 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 Assessment/Plan Major stage II decubitus ulceration 2nd digit left foot. Localized cellulitis left foot. Plan: Review of clinical and x-ray findings, etiology and contributing/aggravating factors, high-risk nature of the condition, treatment strategy, rationale and objectives. Continue Augmentin therapy twice daily. 2nd digit left foot: Sharp excisional debridement as described. Silver alginate dressing: Intact, clean and dry x 5 days. Instructions to then cleanse the wound daily and apply Neosporin ointment or equivalent. Band-Aid dressing as necessary. Offloading: Darco shoe. Recommend cane or walker assist for balance. Follow up: 7-10 days; sooner if condition worsens Procedure: 2nd digit left foot: #15 scalpel and soft tissue Nipper: Sharp, active, selective, full-thickness excisional debridement of stage II wound; to the level of subcutaneous, actively bleeding granular tissue wound bed; excising devitalized, non-viable, dystrophic and hyperkeratotic tissue; reducing wound bioburden and contamination; reducing direct and indirect pressure. Site cleansing followed by pressure hemostasis. Silver alginate dressing secured with Mefix. This note was created with the assistance of a speech recognition program. While intending to generate a timely document that accurately reflects the content of the visit, no guarantee can be provided that every grammatical or spelling mistake has been or will be identified or corrected. Thank you for your understanding. Jamel Chowdary DPM documented in this encounter [facility] 02-25-2025 History of Present illness Narrative [facility] SERVICE DATE: 02/25/2025 SERVICE TIME: 7:19 AM CHIEF COMPLAINT: Rising serum creatinine Original consult October 15, 2024 HPI: Mr. Raymundo is a 74 year old male who presents with a history of lymphocytic colitis, right pleural effusion, gastric reflux, hyperlipidemia, osteoarthritis, gastritis. Fluid retention treated with torsemide. Consult for serum creatinine of 1.71 mg/dL. Improved to 1.13 mg/dL, baseline creatinine 0.9 mg/dL in November 2023. Thoracentesis performed for pleural effusion Urine protein creatinine ratio collected in March 2024 essentially normal. Echocardiogram at that time also was unremarkable CT reviewed from December 2023 showing ascites, normal-appearing kidneys bilaterally with some lobularity He reports a recent onset of abdominal and lower extremity edema, which began approximately 3-4 months ago. He notes that the swelling is not gradual but rather pops up suddenly. Despite daily weight monitoring, he observes that his weight does not reflect the edema, and he can lose weight while still experiencing swelling. He denies any associated pain with eating or other GI symptoms, except for occasional mild pain across the abdomen. He denies diarrhea, and stools are formed. History of lymphocytic colitis, diagnosed following a colonoscopy and biopsy. He was treated with budesonide, starting on 05/08/2024, with an initial dose of 3 pills per day for 60 days, followed by a taper to 2 pills per day for 17 days and 1 pill per day for 7 days. He completed this treatment around mid-July and reports resolution of chronic diarrhea since then. He denies any recurrence of diarrhea since tapering off budesonide. He also has a history of pleural effusion, initially presenting with a cough in the spring. An ultrasound in April 2023 revealed fluid around the heart and both lungs, with the right lung being significantly affected. He underwent a Plurix procedure on 11/20/2023, and has been managing pleural effusion with daily drainage. He received a steroid injection into the pleural space on 09/26/2023, and a second injection yesterday, with 240 mL of fluid drained. He is scheduled for home health nurse visits for drainage and will follow a specific drainage schedule based on fluid volume. He has been on torsemide 100 mg daily since 05/17/2024, after an initial treatment with Lasix 80 mg in the morning and 40 mg at 1400, which was ineffective. He reports that the torsemide has been effective in managing edema, but he has experienced episodes of dehydration and hypokalemia, requiring hospitalization. He also reports episodes of dizziness when standing up quickly, and his blood pressure has been as low as 109-112 systolic in the evenings. He was previously on antihypertensive medication but was taken off due to low readings and the effects of diuretics. He has a history of esophageal stenosis and was on Prilosec for 30 years, which was discontinued after a scope in revealed scarring at the bottom of the esophagus. He was switched to pantoprazole. He denies any history of heavy use of NSAIDs and takes Tyleol in the morning and at night. He denies a history of smoking. Since last visit, creatinine has continued to fluctuate between 1.2 and 1.6 mg/dL. eGFR 45 to 60 mL/min His diuretic has been adjusted so that he is taking half dose of torsemide above a certain weight and full dose at a higher weight. He seems to have stabilized his kidney function. He also has less pulmonary and pericardial fluid and underwent pleurodesis with steroid therapy. He does complain of nausea and vomiting and diarrhea, no abdominal pain. Does not think this is a colitis flare. Attributes symptoms to being off of his proton pump inhibitor for couple of weeks which she has just restarted PAST MEDICAL HISTORY: ACTIVE PROBLEM LIST Obesity, Class I, Bmi 30-34.9 Pleural Effusion Postoperative Pain Generalized Edema Primary Hypertension Pleural Effusion, Not Elsewhere Classified History of Pericarditis Elevated Sedimentation Rate Elevated C-Reactive Protein (Crp) Pleuritis Chronic Cough Lymphocytic Colitis Lung Nodule Esophageal Dysphagia Floyd (Acute Kidney Injury) Stage 3a Chronic Kidney Disease (Hcc) MEDICATIONS: quiNINE 324 mg capsule Take 1 capsule by mouth two times a day. mirabegron (MYRBETRIQ) 50 mg Tb24 Take 1 tablet by mouth every evening. spironolactone (ALDACTONE) 25 mg tablet Take 25 mg by mouth once daily. atorvastatin (LIPITOR) 10 mg tablet Take 10 mg by mouth once daily. potassium chloride ER (KLOR-CON M20) 20 mEq tablet Take 2 tablets by mouth three times a day. torsemide (DEMADEX) 100 mg tablet Take 1 tablet by mouth once daily. metOLazone (ZAROXOLYN) 5 mg tablet Take 1 [...] 10 mg by mouth once daily. calcium hwq-awz-J5-Zn-helicopter specialist-kian 250 mg-40 mg- 125 unit-3.75mg tab Take by mouth. diclofenac (VOLTAREN) 1 % topical gel allopurinol (ZYLOPRIM) 300 mg tablet Take 300 mg by mouth once daily. ALLERGIES: ALLERGIES Allergen Reactions Adhesive Tape-Silic* Intolerance Pt developed petechiae/blood blister/skin tear from EKG stickers. Tramadol Mental Status Change REVIEW OF SYSTEMS: As above PHYSICAL EXAM:BP 123/78 (BP Site: Left Arm, BP Position: Sitting, BP Cuff Size: Regular Adult) Pulse 91 Ht 182.9 cm (6') Wt 87 kg (191 lb 12.8 oz) BMI 26.01 kg/m BP - standardized method Pulse 1 BP #1: 124/79 Pulse #1: 91 beats/min 2 BP #2 : 123/76 Pulse #2 : 91 beats/min 3 BP #3 : 121/77 Pulse #3 : 91 beats/min Average Average BP: 123/78 Average Pulse: 91 beats/min Orthostatic vitals Supine Sitting Standing Standing BP : 117/75 Standing pulse : 99 BP cuff location BP cuff location: Left upper arm BP cuff size BP cuff size: regular adult Comments for BP values First BP (right) First BP (left) General: alert, appropriate, moves easily to the examination table Mood: normal affect HEENT: NC/AT, anicteric No nasal congest. Lungs CTA bilat no wheeze, rales CV RRR trace LE edema ABD soft, NT, normal bowel sounds No skin rash Neuro nonfocal Musculo-skeletal; reduced muscle mass UE/LE DATA: Diagnostic tests reviewed for today's visit: Kidney function: Invalid input(s): SPRG , NITRATES Estimated Glomerular Filtration Rate (mL/min/1.73m ) Date Value 02/11/2025 60 01/25/2025 47 01/08/2025 50 12/22/2024 45 11/17/2024 54 Creatinine Date Value Ref Range Status 02/11/2025 1.26 (H) 0.73 - 1.22 mg/dL Final 01/25/2025 1.55 (H) 0.73 - 1.22 mg/dL Final 01/08/2025 1.46 (H) 0.73 - 1.22 mg/dL Final 12/22/2024 1.60 (H) 0.73 - 1.22 mg/dL Final 11/17/2024 1.38 (H) 0.73 - 1.22 mg/dL Final BUN (mg/dL) Date Value 02/11/2025 27 01/25/2025 56 01/08/2025 56 Amylase (U/L) Date Value 10/23/2024 70 Lipase (U/L) Date Value 10/23/2024 55 12/20/2023 40 Protein/Creat Ratio (mg/mg) Date Value 10/15/2024 <0.32 03/30/2024 0.17 No results found for: UALBCR Immunosuppression: No results found for: FK506 No results found for: EVERO No results found for: RAPA No results found for: CSA Hematology: WBC (k/uL) Date Value 01/25/2025 8.05 01/08/2025 9.63 11/12/2024 8.79 Hemoglobin (g/dL) Date Value 01/25/2025 12.2 01/08/2025 11.7 11/12/2024 12.3 Hematocrit (%) Date Value 01/25/2025 37.9 01/08/2025 37.0 11/12/2024 37.1 Platelet Count (k/uL) Date Value 01/25/2025 197 01/08/2025 228 11/12/2024 189 Calcium, Total (mg/dL) Date Value 02/11/2025 9.2 01/25/2025 9.8 01/08/2025 9.2 Bone and mineral metabolism: Vitamin D 25 Hydroxy (ng/mL) Date Value 07/29/2024 49.2 04/20/2024 36.6 12/21/2023 37.2 Calcium, Total (mg/dL) Date Value 02/11/2025 9.2 01/25/2025 9.8 01/08/2025 9.2 Magnesium (mg/dL) Date Value 01/25/2025 2.2 11/17/2024 2.3 11/12/2024 2.1 Electrolytes and Acid-base: Sodium (mmol/L) Date Value 02/11/2025 135 01/25/2025 135 01/08/2025 138 Potassium (mmol/L) Date Value 02/11/2025 4.2 01/25/2025 3.7 01/08/2025 3.9 Chloride (mmol/L) Date Value 02/11/2025 100 01/25/2025 97 01/08/2025 101 CO2 (mmol/L) Date Value 02/11/2025 23 01/25/2025 25 01/08/2025 29 Viral screening: No results found for: BKVDNA No results found for: BKDNA No results found for: CMVDNA No results found for: EBVDNA ASSESSMENT: 74 year old male who presents with a complex history of colitis pleural and pericardial edema/effusions severe GERD with hiatal hernia, fluctuating kidney function with recurrent FLOYD likely related to diuresis. Doing better on a more conservative regimen of diuretic therapy. Has not had congestion or orthopnea, lungs clear. He will follow-up with GI and may need to follow-up EGD and colonoscopy. GI symptoms are improving somewhat on the proton pump inhibitor Will follow-up as needed in nephrology clinic SIGNATURE: Zabrina Suarez MD PATIENT NAME: Sav Raymundo DATE: February 25, 2025 TIME: 7:19 AM OFFICE NUMBER: CC: PRIMARY CARE PHYSICIAN: Jose Antonio Hopper MD documented in this encounter [facility] 02-25-2025 Note [facility] 02-19-2025 History of Present illness Narrative Radiology Service Progress Note PATIENT NAME: Sav Raymundo DATE OF SERVICE: February 19, 2025 TIME: 2:26 PM PATIENT IDENTITY VERIFICATION COMPLETED USING TWO [...] PATIENT PRESENTS WITH AN IMPLANTABLE OR ATTACHED TELEVISION REPORTER: No RADIOLOGY DEPARTMENT: Ultrasound PERIPHERAL IV DATA: Not applicable SIGNED BY: RT Lolly(R) February 19, 2025 2:26 PM documented in this encounter [facility] 02-19-2025 Note [facility] 01-26-2025 History of Present illness Narrative PROGRESS NOTES Patient Name: Sav Raymundo SERVICE DATE: 01/26/2025 SERVICE TIME: 1:39 PM HPI: Mr. Raymundo is a 74 year old male who presents for Follow Up.Trudy gets weak and disoriated while walking.Takes Torsemide 100 for weight 178-182.BP standing is 100/60 MEDICATIONS: Current Outpatient Medications Medication Sig Dispense Refill quiNINE 324 mg capsule Take 1 capsule by mouth two times a day. 180 capsule 0 mirabegron (MYRBETRIQ) 50 mg Tb24 Take 1 tablet by mouth every evening. 90 tablet 1 spironolactone (ALDACTONE) 25 mg tablet Take 25 mg by mouth once daily. atorvastatin (LIPITOR) 10 mg tablet Take 10 mg by mouth once daily. potassium chloride ER (KLOR-CON M20) 20 mEq tablet Take 2 tablets by mouth three times a day. 540 tablet 0 torsemide (DEMADEX) 100 mg tablet [...] 10 mg by mouth once daily. calcium ydd-owv-M0-Zn-helicopter specialist-kian 250 mg-40 mg- 125 unit-3.75mg tab Take by mouth. diclofenac (VOLTAREN) 1 % topical gel allopurinol (ZYLOPRIM) 300 mg tablet Take 300 mg by mouth once daily. No current [...] change in stool. GENITOURINARY: Negative for dysuria, +frequency and incontinence MUSCULOSKELETAL: Negative for joint pain or swelling, back pain, and muscle pain. NEUROLOGIC: Negative for focal numbness or weakness, headaches and dizziness. SKIN: Negative for lesions, rash, and itching. PSYCHIATRIC: Negative for sleep disturbance, mood disorder and recent psychosocial stressors. HEMATOLOGIC/LYMPHATIC/IMMUNOLOGI C: Negative for prolonged bleeding, bruising easily, and swollen nodes. ENDOCRINE: Negative for cold or heat intolerance, polyuria, polydipsia and goiter. PHYSICAL EXAMINATION: BP 125/78 Pulse 86 Temp 98.6 Resp 17 Ht 6' 0 (1.83m) Wt 185 lb (83.9kg) SpO2 96% BMI 25.08 kg/(m^2). General appearance: Normal, healthy, cooperative, in [...] diaphragmatic excursion. Lungs clear to auscultation. Heart: [place] normal. Precordium quiet. RRR. Normal HS with no murmurs.. Abdomen: Abdomen soft, non-tender. BS normal. No masses, organomegaly Extremities: Normal exam of the extremities, Extremities normal. No deformities, edema, or skin discoloration Musculoskeletal: Spine ROM normal. Muscular strength intact. Peripheral pulses: normal, capilliary refill <2secs, strong peripheral pulses Neuro: Gait normal. Reflexes normal and symmetric. Sensation grossly intact. ASSESSMENT/PLAN: 1. Metabolic encephalopathy - ICD9: 348.31, ICD10: G93.41 (primary diagnosis) - Most likely secondary to dehydration - Decrease Torsemide 50 mg for weight 85-190 2. Stage 3a chronic kidney disease (HCC) - ICD9: 585.3, ICD10: N18.31 - eGFR: 47 Stable 3. Primary hypertension - ICD9: 401.9, ICD10: I10 - Controlled - Continue current medications - Recommend home blood pressure monitoring, to bring results to next visit - Encouraged sodium restriction, DASH or Mediterranean diet - Recommend regular aerobic exercise 4. Lymphocytic colitis - ICD9: 558.9, ICD10: K52.832 - Stable 5. Generalized edema - ICD9: 782.3, ICD10: R60.1 - No swelling 6. Orthostatic hypotension - ICD9: 458.0, ICD10: I95.1 - As above 7. Cramp and spasm - ICD9: 781.0, ICD10: R25.2 - QUININE 324 MG CAPSULE 8. Urge incontinence - ICD9: 788.31, ICD10: N39.41 - MIRABEGRON ER 50 MG TABLET,EXTENDED RELEASE 24 HR Jose Antonio Hopper MD SIGNATURE: Jose Antonio Hopper MD DATE: January 26, 2025 TIME: 1:39 PM documented in this encounter [facility] 01-26-2025 Evaluation note Diagnosis Metabolic encephalopathy- Primary Stage 3a chronic kidney disease (HCC) Primary hypertension Unspecified essential hypertension Lymphocytic colitis Other and unspecified noninfectious gastroenteritis and colitis Generalized edema Edema Orthostatic hypotension Cramp and spasm Urge incontinence Elevated alkaline phosphatase level Other nonspecific abnormal serum enzyme levels documented in this encounter [facility]07-28-2025 History of Present illness Narrative* Triston Riggs MD - 01/11/2025 9:30 AM EDT Images from the original note were not included. Respiratory [facility] Pul[facility] Consultation CC: Persistent RIGHT pleural effusion Sav Raymundo is a 74 year old male sent by Dr. STEPHANE Cesar MD and Ronaldo Flood MD, PhD for evaluation of persistent RIGHT pleural effusion. My final recommendations will be communicated to the requesting health care provider by way of the shared medical record for internal providers or lettervia the [employer] for external providers. Assessment and Plan 1. Panserositis with associated fluid collections of unclear etiology He responded well to intrapleural steroids. TPC removed 11/19 without re-accumulation of effusion 2. Lymphocytic colitis 3. Chronic cough Plan: 1. Encouraged regular progressive physical activity. 2. Should he note increased shortness of breath or chest fullness would repeat CxR and ask him to follow with me. 3. Continue diuretic regimen as established. 4. Monitor salt intake 5. Check daily weights. HPI: Mr. Sav Raymundo is a 74 y/o male with a history of persistent RIGHT pleural effusion with TPC placed last November 2023 during VATS thoracoscopy after pleural biopsy and unsuccessful chemical/mechanical pleurodesis. His output of pleural fluid tapered off after intrapleural steroid administration until no further drainage was achieved. Concomitant US of the chest documented paucity of effusion. The TPC was removed on 11/19. His exertional capacity remains limited but he is making an effort to be more active and notes someprogress. 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 He continues to note increased LE edema [...] 10 mg by mouth once daily. calcium ixy-ags-O6-Zn-helicopter specialist-kian 250 mg-40 mg- 125 unit-3.75mg tab Take [...] systems is otherwise negative. PHYSICAL EXAMINATION: BP 124/74 Pulse 85 Temp (Src) 98 (Temporal) Resp 16 Wt 186 lb 15.2 oz (84.8kg) SpO2 86%. Blood pressure and pulse repeated 3 and [...] No accessory muscle use. RIGHT TPC site is well healed, c/d/I. Cardiovascular: RRR without gallop, or rubs or [...] recent chest radiographic image and report, dated 01/08/2025 and compared to 11/23/2024, 11/19/2024, 05/18/2025 as well as multipl priors through 07/08/2023 . I agree with the following assessment. The radiologist notes; Lines, tubes, and devices: None. Lungs and pleura: Small right pleural effusion and mild right basilar atelectasis, slightly increased from 11/23/2024. A trace amount of fluid within the right minor fissure is also increased. The lungs are otherwise clear. No evidence of a pneumothorax. Cardiomediastinal silhouette: Normal cardiomediastinal silhouette. Bones and soft tissues: Unremarkable. IMPRESSION: Small right pleural effusion and mild right basilar atelectasis have increased from 11/23/2024. I re-reviewed his recent chest CT scan images and [...] restriction. The diffusing capacity is normal. LABS: CBC with diff: WBC 9.63 01/08/2025 RBC 3.58 01/08/2025 Hemoglobin 11.7 01/08/2025 Hematocrit 37.0 01/08/2025 MCV 103.4 01/08/2025 MCH 32.7 01/08/2025 MCHC 31.6 01/08/2025 RDW-CV 15.8 01/08/2025 Platelet Count 228 01/08/2025 MPV 9.7 01/08/2025 Neutrophils % 80.0 11/12/2024 Lymphocytes % 10.4 11/12/2024 Monocytes % 7.6 11/12/2024 Eosinophils % 0.0 11/12/2024 Basophils % 0.2 11/12/2024 Abs Neut 7.03 11/12/2024 Abs Reynolds 0.67 11/12/2024 Abs Eosin <0.03 11/12/2024 Abs Baso <0.03 11/12/2024 Glucose (mg/dL) Date Value 01/08/2025 116 Potassium (mmol/L) Date Value 01/08/2025 3.9 Sodium (mmol/L) Date Value 01/08/2025 138 Chloride (mmol/L) Date Value 01/08/2025 101 CO2 (mmol/L) Date Value 01/08/2025 29 Creatinine (mg/dL) Date Value 01/08/2025 1.46 BUN (mg/dL) Date Value 01/08/2025 56 Anion Gap (mmol/L) Date Value 01/08/2025 8 Calcium, Total (mg/dL) Date Value 01/08/2025 9.2 Protein, Total (g/dL) Date Value 01/08/2025 7.4 Albumin (g/dL) Date Value 01/08/2025 4.1 Bilirubin, Total (mg/dL) Date Value 01/08/2025 0.6 Alkaline Phosphatase (U/L) Date Value 01/08/2025 92 AST (U/L) Date Value 01/08/2025 5 ALT (U/L) Date Value 01/08/2025 18 04/28/2024 Colonoscopy/EGD A. Duodenum, biopsy: -Duodenal mucosa [...] 36 % 39 80 (H) 80 (H) Reynolds%, BF % 6 Macro%, BF 64 - 80 % 56 4 (L) 6 (L) Meso%, BF 0 - 2 % 1 Eosin%, BF % 0 2 Reac Lymph %, BF % See comment 1 LD,Body Fluid See Comment U/L 86 100 [...] with the clinical findings is suggested. F/u: As needed. I spent 35 minutes in the visit, with more than 50% of the total [id number] time of the visit in counseling / coordination of care. Triston Riggs M.D. Staff, Interventional Pulmonology. Pulmonary, Allergy & Critical Care Medicine [facility] documented in this encounter[facility] History of Present illness Narrative* Patricia Coello, RT(R) - 01/08/2025 1:00 PM EDT Radiology Service Progress Note PATIENT NAME: Sav Raymundo DATE OF SERVICE: January 08, 2025 TIME: 12:43 PM PATIENT IDENTITY VERIFICATION COMPLETED USING TWO [...] PATIENT PRESENTS WITH AN IMPLANTABLE OR ATTACHED TELEVISION REPORTER: No RADIOLOGY DEPARTMENT: General X-ray: Exam(s) Completed: Chest X-Ray PERIPHERAL IV DATA: Not applicable SIGNED BY: RT Cleveland(R) January 08, 2025 12:43 PM documented in this [facility] Instructions* Patient Instructions* Marlyn Hooper APRN.CNP - 12/22/2024 7:12 PM EDT We discussed your liver health and elevated liver enzymes: - Your recent labs show that your alkaline phosphatase has normalized, but your AST remains slightly elevated. No liver enzymes were included in today s blood work. - Imaging from November 23 [...] procedure, and you can schedule it at [place] or the main campus by calling [phone]. - Additional blood work has been ordered to rule out autoimmune or viral causes of liver damage. You can complete this at [facility] or another lab location. We discussed your kidney health: - Your creatinine levels, which indicate kidney function, are continuing to rise. I recommend seeing a pediatric cardiologist (kidney specialist) to evaluate this further and assess your current use of water pills (torsemide). I have placed a referral for nephrology, and you can schedule an appointment by calling [phone]. Virtual visits may also be an option. We discussed your fluid retention and current medication regimen: - Your fluid retention is being managed with torsemide, but the dosing schedule is complex and may need adjustment. A pediatric cardiologist can help optimize this to protect your [...] any new concerns, and contact me through [employer] if needed. - I will review the biopsy and blood work results once they are available and contact you with nextsteps. Please let me know if you have any questions or concerns in the meantime. documented in this encounterSum[facility] History of Present illness Narrative* Marlyn Hooper APRN.CNP - 12/22/2024 6:00 PM EDT VIRTUAL VISIT PROGRESS NOTE This is a virtual visit using [employer] Zoom Video Visit. It required patient- provider interaction for the medical decision making as documented below. I have communicated my name and active licensure. The patient's identity and physical location wereverified at the time of this visit. Either the patient or their legal technical account representative has been informed of the risks [...] despite evaluation by rheumatology, pulmonology, gastroenterology, and supervisor sewing room, as well as recent vascular testing. The [...] He is not currently followed by a pediatric cardiologist, but his creatinine has been rising. An [...] 50-60 lbs lost since his hospitalization at [facility] on 12/19/2022 for lower extremity swelling, with [...] 10 mg by mouth once daily. calcium vwy-lur-R5-Zn-helicopter specialist-kian 250 mg-40 mg- 125 unit-3.75mg tab Take [...] isnot currently under the care of a pediatric cardiologist. - Referral to nephrology for further evaluation and management. - Provided patient with scheduling number for nephrology appointment. - Advised patient to monitor kidney function closely. I spent a total of 45 minutes on the date of the service which included preparing to see the patient, [id number] patient care, completing clinical documentation, counseling and educating the patient/family/caregiver, ordering medications, tests, or procedures, and communicating results to the dayan ent/family/caregiver Marlyn Hooper APRN.STEAM TUNNEL FEEDER documented in this encounterSumma Health Wad[facility]07-08-2025 NoteMer[facility]07-01-2025 History of Present illness Narrative* Jose Antonio Hopper MD - 12/15/2024 11:34 AM EDT PROGRESS NOTES Patient Name: Sav Raymundo SERVICE DATE: 12/15/2024 SERVICE TIME: 11:34 AM HPI: Mr. Raymundo is a 74 [...] 10 mg by mouth once daily. calcium cdg-ebl-C0-Zn-helicopter specialist-kian 250 mg-40 mg- 125 unit-3.75mg tab Take [...] diaphragmatic excursion. Lungs clear to auscultation. Heart: [facility] normal. Precordium quiet. RRR. Normal HS with [...] - SUCRALFATE 1 GRAM TABLET Jose Antonio Hopper MD SIGNATURE: Jose Antonio Hopper MD DATE: December 15, 2024 TIME: 11:34 AM documented in this encounterSumma Health Wad[facility]06-09-2025 Telephone encounter Note * Telephone Encounter - Jahaira Wood - 11/23/2024 1:48 PM EDT Received missed visit notes 11/20/24 and 11/10/24 records scanned in [facility] Jahaira Wood clinic administrator [facility]06-09-2025 Miscellaneous Notes* Telephone Encounter - Jahaira Wood - 11/23/2024 1:48 PM EDT Received missed visit notes 11/20/24 and 5/27/25 records scanned in Epic Jahaira Wood, clinic administrator documented in this encounterSumma Health Wadsworth [facility]06-09-2025 History of Present illness Narrative* Triston Riggs MD - 11/23/2024 12:00 PM EDT Images from the original note were not included. Respiratory [facility] Pulmonary Consultation CC: Persistent RIGHT pleural effusion Sav Raymundo is a 74 year old male sent by Dr. STEPHANE Cesar MD for evaluation of persistent RIGHT pleural effusion. My final recommendations will be communicated to the requesting health care provider by way of the shared medical record for internal providers or letter via the [employer] Postal Service for external providers. Assessment and [...] order for CxR in place and Mr. Raymundo aware he needs to call and schedule prior to arriving. Change occlusive dressing daily until three consecutive days without drainage. Keep exit site dry and without submersion for 10 days 3. Continue diuretic regimen as established. 4. Monitor salt intake 5. Check daily weights. 6. Encouraged regular progressive physical activity. HPI: Mr. Sav Raymundo is a 74 y/o male with a [...] provided show decreasing staining of gauze.) Mr. Raymundo notes no notable pain or discomfort over his right chest or any pleuritic pain. There is no change in his respiratory status. He does note sense of malaise and unsteadiness which predate the TPC removal. He will complete course of oral antibiotics. [place] is home care provider. He continues [...] 10 mg by mouth once daily. calcium rxz-zxq-I2-Zn-helicopter specialist-kian 250 mg-40 mg- 125 unit-3.75mg tab Take [...] UltraSens C-Reactive Protein <3.1 mg/L 13.2 (H) [facility] Reference Range & Units Most Recent 12/26/23 [...] 1.21 0.95 (L) 0.80 (L) 0.91 (L) Reynolds% % 7.6 11/12/24 13:30 11.7 12.9 7.3 7.6 Abs Reynolds <0.87 k/uL 0.67 11/12/24 13:30 0.80 1.03 [...] 0.09 0.16 (H) NRBC /100 WBC 0.0 5/29/25 13:30 0.0 0.0 0.0 0.0 Absolute nRBC [...] 36 % 39 80 (H) 80 (H) Reynolds%, BF % 6 Macro%, BF 64 - [...] with more than 50% of the total [id number]-rx-[id number] time of the visit in counseling / coordination of care. Triston Riggs M.D. Staff, Interventional Pulmonology. Pulmonary, Allergy & Critical Care Medicine [facility] documented in this encounterSumma Health Wadsworth [facility]06-09-2025 NoteMercer [facility]06-09-2025 History of Present illness Narrative* Karsten Lagos, RT(R) - 11/23/2024 11:40 AM EDT Radiology Service Progress Note PATIENT NAME: Sav Raymundo DATE OF SERVICE: November 23, 2024 TIME: [...] PATIENT PRESENTS WITH AN IMPLANTABLE OR ATTACHED TELEVISION REPORTER: No RADIOLOGY DEPARTMENT: General X-ray: Exam(s) Completed: Chest X-Ray PERIPHERAL IV DATA: Not applicable SIGNED BY: RT Franca(R) November 23, 2024 12:31 PM documented in this encounterSumma Health Wad[facility]06-09-2025 NoteMercer [facility]06-06-2025 NoteMercer County [facility]06-06-2025 History of Present illness Narrative* Zac Mendiola MD - 11/20/2024 9:23 AM EDT Images from the original note were not included. Heart, Vascular and Thoracic [facility] April Baltazar Department of Cardiovascular Medicine SECTION OF INTERVENTIONAL CARDIOLOGY OUTPATIENT VISIT DATE 11/20/2024 OUTPATIENT VISIT TYPE New PRIMARY CARE PHYSICIAN: Jose Antonio Hopper [id number] [place] [address] REFERRING PHYSICIAN: No referring provider defined for this encounter. Recording using [employer] software for draft documentation of the visit was discussed with the patient/authorized technical account representative; all questions welcomed and answered. Patient/authorized technical account representative agreed to proceed HISTORY OF PRESENT [...] 10 mg by mouth once daily. calcium egh-tfh-B3-Zn-helicopter specialist-kian 250 mg-40 mg- 125 unit-3.75mg tab Take [...] EST IMPRESSION / PLAN AND RECOMMENDATIONS:: Mr. Raymundo is a 74 year old [...] of Cardiovascular Medicine Heart, Vascular and Thoracic [facility] Office Office Pager [phone] documented in this encounterSumma Health Wadsworth - [facility] Center06-05-2025 NoteMercer County Community [facility]06-05-2025 History of Present illness Narrative* Triston Riggs MD - 11/19/2024 3:28 PM EDT Images from the original note were not included. Respiratory [facility] Pulmonary Consultation CC: Persistent RIGHT pleural effusion Sav Raymundo is a 74 year old male sent by Dr. STEPHANE Cesar MD for evaluation of persistent RIGHT pleural effusion. My final recommendations will be communicated to the requesting health care provider by way of the shared medical record for internal providers or letter via the [employer] Postal Service for external providers. Assessment and [...] CxR placed He will obtain CxR in [place] as need for perceived recurrence of effusion [...] Catheter not accessed 11/17, 11/18 or today. 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 He continues [...] 10 mg by mouth once daily. calcium cnn-sld-F5-Zn-helicopter specialist-kian 250 mg-40 mg- 125 unit-3.75mg tab Take [...] UltraSens C-Reactive Protein <3.1 mg/L 13.2 (H) [facility] Reference Range & Units Most Recent 12/26/23 [...] 1.21 0.95 (L) 0.80 (L) 0.91 (L) Reynolds% % 7.6 11/12/24 13:30 11.7 12.9 7.3 7.6 Abs Reynolds <0.87 k/uL 0.67 11/12/24 13:30 0.80 1.03 [...] Data Latest Reference Range & Units 09/04/2023 10/01/202305/18/24 12:52 06/22/24 10:30 Site, BF Pleural Cavity, [...] 36 % 39 80 (H) 80 (H) Reynolds%, BF % 6 Macro%, BF 64 - [...] Pulmonology. Pulmonary, Allergy & Critical Care Medicine [facility] documented in this encounterSumma Health Wadsworth - [facility]06-05-2025 History of Present illness Narrative* Se Quinn, RT(R) - 11/19/2024 1:45 PM EDT Radiology Service Progress Note PATIENT NAME: Sav Raymundo DATE OF SERVICE: November 19, 2024 TIME: [...] PATIENT PRESENTS WITH AN IMPLANTABLE OR ATTACHED TELEVISION REPORTER: No RADIOLOGY DEPARTMENT: General X-ray: Exam(s) Completed: Chest X-Ray PERIPHERAL IV DATA: Not applicable SIGNED BY: RT Dimitri(Sandee) November 19, 2024 1:24 PM documented in this encounterSumma Health Wadsworth - [facility] Center06-05-2025 NoteMercer County [facility]06-03-2025 Telephone encounter Note* Telephone Encounter - Amanda Brooks - 11/17/2024 [...] with physician. She can be reached at [phone] She asked if a detailed voicemail can be left if somehow she misses the call [facility]06-03-2025 Miscellaneous Notes* Telephone Encounter - Amanda Broosk - 11/17/2024 2:29 PM EDT Patient called. [...] with physician. She can be reached at [phone] She asked if a detailed voicemail can be left if somehow she misses the call documented in this encounterSumma Health Wadsworth - [facility]ittman [facility] Center05-30-2025 History of Present illness Narrative* Jose Antonio Hopper MD - 11/13/2024 1:34 PM EDT PROGRESS NOTES Patient Name: Sav Raymundo SERVICE DATE: 11/13/2024 SERVICE TIME: 1:47 PM HPI: Mr. Raymundo is a 74 year old male who presents for Follow Up.[facility],no [facility] pain MEDICATIONS: Current Outpatient [...] 10 mg by mouth once daily. calcium mlm-opb-S5-Zn-helicopter specialist-kian 250 mg-40 mg- 125 unit-3.75mg tab Take [...] diaphragmatic excursion. Lungs clear to auscultation. Heart: [facility] normal. Precordium quiet. RRR. Normal HS with [...] 275.2, ICD10: E83.42 - MAGNESIUM Jose Antonio Hopper MD SIGNATURE: Jose Antonio Hopper MD DATE: November 13, 2024 TIME: 1:47 PM documented in this encounterSumma Health Wadsworth - [facility]05-29-2025 NoteMercer County [facility]05-28-2025 Miscellaneous Notes* Telephone Encounter - Xiomara Ly APRN.CNP - 11/11/2024 5:20 PM EDT Called pt to discuss symptoms. Advised that given reported rapid weight gain over the last 4-5 days, he should be evaluated in the ED to determine if inpatient management is appropriate for worseningsymptoms. Pt verbalized understanding. Xiomara Ly APRN.CURT documented in this encounterSumma Health Wadsworth - [facility]05-28-2025 Telephone encounter Note * Telephone Encounter - Xiomara Ly APRN.CNP - 11/11/2024 5:20 PM EDT Called pt to discuss symptoms. Advised that given reported rapid weight gain over the last 4-5 days, he should be evaluated in the ED to determine if inpatient management is appropriate for worseningsymptoms. Pt verbalized understanding. Xiomara Ly APRN.CNP [facility] Work Phone: 1(428) 905-201405-21-2025 NoteHNO ID: [id number] Author: CINTIA JOSHI RT(R) Service: Radiology Author Type: Technologist Type: Progress Notes Filed: 11/04/2024 13:24 Note Text: Radiology Service Progress Note PATIENT NAME: Sav Raymundo DATE OF SERVICE: November 04, 2024 TIME: 1:24 PM PATIENT IDENTITY VERIFICATION [...] PATIENT PRESENTS WITH AN IMPLANTABLE OR ATTACHED TELEVISION REPORTER: No RADIOLOGY DEPARTMENT: CT; Exam(s) Completed: Enterography PERIPHERAL IV DATA: Not applicable SIGNED BY: RT Cachorro(R) November 04, 2024 1:24 [facility]Nvjikbgd[facility]2103 NoteHNO ID: [id number] Author: DRAGAN LOPEZ CT Service: Radiology Author Type: Technologist Type: Progress Notes Filed: 11/04/2024 15:00 Note Text: RADIOLOGY SERVICE PROGRESS NOTE DATE OF SERVICE: November 04, 2024 TIME OF SERVICE: 1451 EVENT: CONTRAST EXTRAVASATION / IV or MEDICATION INFILTRATE Type: Contrast (specify) - omnipaque 350. Estimated Volume: 100ml, Location: Right forearm. IV Gauge: 20 ultrasound IV. Method of Injection: Power Injector. Difficult IV access: Yes. Number of IV start attempts: 2. Cool compress given: Yes. Skin Assessment: (2) Skin blanched; skin translucent; edema 1-6 inches in any direction; cool to touch; with or without pain. Symptoms: Swelling/edema. Physician notified: MANUEL Rai Treatment: Peripheral IV access discontinued, Cold compress, and Extremity elevation. At Home instructions given to patient: Yes. WAS EXAM COMPLETED: Yes ADDITIONAL EVENT DETAILS: N/A SIGNATURE: MAICOL ZELAYA PATIENT NAME: Sav Raymundo DATE: November 04, 2024 TIME: 2:57 PM PAGER/CONTACT [id number] History of Present illness Narrative* Riley Rowley RDMS, RVT - 10/23/2024 1:45 PM EDT Radiology Service Progress Note PATIENT NAME: Sav Raymundo DATE OF SERVICE: October 23, 2024 TIME: 2:13 PM PATIENT IDENTITY VERIFICATION COMPLETED USING TWO (2) IDENTIFIERS: Name and Date of confirmedby patient verbally and Name and Date of confirmed by identification band. FALL SCREENING: Has the patient had 2 falls in the last year or 1 fall with injury or currently using an Ambulatory Assistive Device (Walker, Cane, Wheelchair, Crutches, etc.)? No PATIENT GENDER DATA: Assigned male at PATIENT RELEVANT IMPLANT DATA REVIEWED: Not Applicable PATIENT PRESENTS WITH AN IMPLANTABLE OR ATTACHED TELEVISION REPORTER: No RADIOLOGY DEPARTMENT: Ultrasound PERIPHERAL IV DATA: Not applicable SIGNED BY: Riley Rowley RDMS, RVT October 23, 2024 2:13 PM documented in this encounterSumma Health Wadsworth - [facility]05-09-2025 NoteHNO ID: [id number] Author: RILEY ROWLEY RDMS, RVT Service: Radiology Author Type: Enhanced Environmental Operator Type: Progress Notes Filed: 10/23/2024 14:13 Note Text: Radiology Service Progress Note PATIENT NAME: Sav LANCEN: [id number] DATE OF SERVICE: October 23, 2024 TIME: 2:13 PM PATIENT IDENTITY VERIFICATION COMPLETED USING TWO [...] PATIENT PRESENTS WITH AN IMPLANTABLE OR ATTACHED TELEVISION REPORTER: No RADIOLOGY DEPARTMENT: Ultrasound PERIPHERAL IV DATA: Not applicable SIGNED BY: Riley Rowley RDMS, DEYVI October 23, 2024 2:13 [facility] [id number] Telephone encounter Note* Telephone Encounter - Jahaira Wood - 10/23/2024 10:20 AM EDT Received missed visit note from [facility] 10/14/24, record scanned in [employer] Jahaira Wood, clinic administrator [facility]05-09-2025 Miscellaneous Notes* Telephone Encounter - Jahaira Wood - 10/23/2024 10:20 AM EDT Received missed visit note from [facility] 10/14/24, record scanned in [employer] Jahaira Wood, clinic administrator documented in this encounterSumma Health Wad[facility]05-07-2025 Telephone encounter Note * Telephone Encounter - Xiomara Ly APRN.CNP - 10/21/2024 12:23 PM EDT Called and spoke with pt and his . Ordered a CTe to rule out an IBD component behind symptoms, as well as a fecal fat stool test. Advised to keep appointment for liver ultrasound and to set up anappointment with hepatology for further evaluation. Pt and his understanding and agreeable to advisement. Xiomara yL APRN.CNP [facility]05-07-2025 Miscellaneous Notes* Telephone Encounter - Xiomara Ly APRN.CNP - 10/21/2024 12:23 PM EDT Called and spoke with pt and his . Ordered a CTe to rule out an IBD component behind symptoms, as well as a fecal fat stool test. Advised to keep appointment for liver ultrasound and to set up anappointment with hepatology for further evaluation. Pt and his understanding and agreeable to advisement. Xiomara Ly APRN.CNP documented in this encounterSumma Health Wad[facility]05-01-2025 History of Present illness Narrative* Zabrina Suarez MD - 10/15/2024 9:20 AM EDT [facility] SERVICE DATE: 10/15/2024 SERVICE TIME: 7:15 AM REASON FOR CONSULT: I am asked to see this patient in consultation for my opinion regarding chronickidney disease. My recommendations will be communicated by way of shared medical record, fax, or mail. REQUESTING PHYSICIAN: Xiomara Ly APRN.C* PRIMARY CARE PHYSICIAN: Yuli Mariscal DO CHIEF COMPLAINT: Rising serum creatinine HPI: Mr. Raymundo is a 74 year old male who presents with a history of lymphocytic colitis, right pleural effusion, gastric reflux, hyperlipidemia, osteoarthritis, gastritis. Fluid retention treated with torsemide. Noted to have a recent serum creatinine of 1.71 mg/dL. Improved on labs yesterday to 1.13 mg/dL, baseline creatinine 0.9 mg/dL in November 2023. Thoracentesis performed yesterday Urine protein creatinine ratio collected in March 2024 essentially normal. Echocardiogram at thattime also was unremarkable CT reviewed from December 2023 showing ascites, normal-appearing kidneys bilaterally with some lobularity He reports a recent onset of abdominal and lower extremity edema, which began approximately 3-4 months ago. He notes that the swelling is not gradual but rather pops up suddenly. Despite daily weight monitoring, he observes that his weight does not reflect the edema, and he can lose weight while still experiencing swelling. He denies any associated pain with eating or other GI symptoms, except for occasional mild pain across the abdomen. He denies diarrhea, and stools are formed. History of lymphocytic colitis, diagnosed following a colonoscopy and biopsy. He was treated with budesonide, starting on 05/08/2024, with an initial dose of 3 pills per day for 60 days, followed by a taper to 2 pills per day for 17 days and 1 pill per day for 7 days. He completed this treatment around mid-July and reports resolution of chronic diarrhea since then. He denies any recurrence ofdiarrhea since tapering off budesonide. He also has a history of pleural effusion, initially presenting with a cough in the spring.An ultrasound in April 2023 revealed fluid around the heart and both lungs, with the right lung being significantly affected. He underwent a Plurix procedure on 11/20/2023, and has been managing pleural effusion with daily drainage. He received a steroid injection into the pleural space on 09/26/2023, and a second injection yesterday, with 240 mL of fluid drained. He is scheduled for home health nurse visits for drainage and will follow a specific drainage schedule based on fluid volume. He has been on torsemide 100 mg daily since 05/17/2024, after an initial treatment with Lasix 80 mg in the morning and 40 mg at 1400, which was ineffective. He reports that the torsemide has been effective in managing edema, but he has experienced episodes of dehydration and hypokalemia, requiring ho spitalization. He also reports episodes of dizziness when standing up quickly, and his blood pressure has been as low as 109/112 systolic in the evenings. He was previously on antihypertensive medication but was taken off due to low readings and the effects of diuretics. He has a history of esophageal stenosis and was on Prilosec for 30 years, which was discontinued after a scope in revealed scarring at the bottom of the esophagus. He was switched topantoprazole. He denies any history of heavy use of NSAIDs and takes Tylenol in the morning and at night. He denies a history of smoking. PAST MEDICAL HISTORY: PAST MEDICAL HISTORY Diagnosis [...] insertion. TOTAL KNEE REPLACEMENT Right 06/25/2016 FAMILY HISTORY: FAMILY HISTORY Problem Relation Age of Onset Heart Father Colon Cancer No Family History SOCIAL HISTORY: Social History Tobacco Use Smoking status: Never Smokeless tobacco: Never Vaping Use Vaping status: Never Used Substance Use Topics Alcohol use: Yes Comment: socially, no drink since 06/2023 Drug use: Never MEDICATIONS: potassium chloride (K-TAB) 20 mEq TbER 2 tablets by ORAL/FEEDING TUBE route three times a day. pantoprazole DR (PROTONIX) 40 mg tablet Take 40 mg by mouth once daily. ascorbic acid, vitamin C, (VITAMIN C) 500 mg tablet Take 1,000 mg by mouth once daily. multivit-min/ferrous fumarate (MULTI VITAMIN ORAL) Take 1 tablet by mouth once daily. guaifenesin/dextromethorphan (MUCINEX DM ORAL) Take by mouth two times a day. loratadine (CLARITIN) 10 mg tablet Take 10 mg by mouth once daily. torsemide (DEMADEX) 100 mg tablet Take 1 tablet by mouth once daily. calcium oan-tzb-X8-Zn-helicopter specialist-kian 250 mg-40 mg- 125 unit-3.75mg tab Take by mouth. diclofenac (VOLTAREN) 1 % topical gel amoxicillin (AMOXIL) 500 mg capsule allopurinol (ZYLOPRIM) 300 mg tablet Take 300 mg by mouth once daily. atorvastatin (LIPITOR) 10 mg tablet Take 1 tablet by mouth once daily. ALLERGIES: ALLERGIES Allergen Reactions Tramadol Mental Status Change PHYSICAL EXAM: BP 131/83 (BP Site: Left Arm, BP Position: Sitting, BP Cuff Size: Regular Adult) Pulse 83 Temp 36.6 C (97.9 F) (Oral) Ht 182.9 cm (6') Wt 90.7 kg (199 lb 15.3 oz) BMI 27.12 kg/m Constitutional: NAD, well nourished, alert, and cooperative. Eyes: Conjunctivae clear, PERRL. EOM intact. Ear, Nose, and Throat: MMM, dentition normal, lips normal. No nasal congestion, no oral lesions or thrush. Neck: Trachea midline, no JVD, neck supple, no palpable masses or thyromegaly. Cardiovascular: RRR, normal S1 and S2, no murmurs, rubs, or gallops. No peripheral edema. Respiratory: Normal respiratory effort, lungs CTA bilaterally, no wheezes, rales, or rhonchi. PleurX in right chest Abdomen: Ascites although not tense Musculoskeletal: Good muscle tone in UE/LE. No joint effusions or deformities. Extremities: 1+ leg edema symmetrically Skin: No rashes Neurologic: Cranial nerves II-XII intact, normal sensation, non-focal exam, AAO x3 Psychiatric: Normal mood and affect. DATA: Diagnostic tests reviewed for today's visit: Labs: - Creatinine: Ranged from 0.9 mg/dL to 1.7 mg/dL (returned to 1.1 mg/dL) - Albumin: 4.2 - GREY: Negative - Pleural fluid analyses: Repeatedly negative for infection or malignancy, clear fluid Imaging: - (Yesterday) Chest ultrasound and x-ray: No fluid in the left lung; right-sided pleural fluid drained (240 mL) - Echocardiogram: Normal function; no evidence of heart failure, no pericardial effusion December 2023 - CT Kidneys: Kidneys appeared normal December 2023 Tests: - (September) Stomach biopsy: Mild inflammation - (March or April) Upper endoscopy and colonoscopy: - Distal esophageal scarring - Colon biopsy: Lymphocytic colitis ASSESSMENT: 74 year old male who presents with # Elevated BUN (R79.9) # Elevated serum creatinine (R79.89) # Decreased GFR (R94.4) - Recent labs show fluctuating renal function with creatinine levels ranging from 1.7 down to 1.1 on repeat, baseline at 0.9. Likely secondary to volume depletion from high-dose diuretics. Ordered repeat kidney function tests and urine albumin to assess current status. Advised patient to maintain adequate hydration. Will monitor lab results and adjust diuretic therapy if renal function is significantly impaired. # Lymphocytic colitis (K52.832) - Previously treated with budesonide, which resolved chronic diarrhea. Discussed potential association with current edema and pleural effusion. Will consult with GI team, including Dr. Ngo, to discuss alternative treatments such as infliximab. Ordered inflammatory markers to assess current inflammatory status. # Pleural effusion, not elsewhere classified (J90) - Chronic right-sided pleural effusion managed with PleurX catheter and recent intrapleural steroidinjections. Dr. Riggs overseeing pleural management; patient instructed to follow drainage schedule and report fluid volumes. Will communicate with pulmonology to coordinate care and evaluate effectiveness of current treatment. # Generalized edema (R60.1) - Persistent edema in lower extremities and abdomen despite diuretic therapy. Currently on torsemide 100 mg daily, previously on Lasix. Edema management complicated by renal function fluctuations. Will discuss potential reduction or modification of diuretic therapy with Dr. Coto and Dr. Mariscal. Ordered labs to assess for proteinuria and inflammatory markers. Will follow up with GI and pulmonology to determine underlying cause and adjust treatment accordingly. SIGNATURE: Zabrina Suarez MD PATIENT NAME: Sav Raymundo DATE: October 15, 2024 TIME: 7:15 AM OFFICE NUMBER: CC: REFERRING PROVIDER: Xiomara Ly APRN.C* PRIMARY CARE PHYSICIAN: Yuli Mariscal DO documented in this encounterSumma Health [facility]05-01-2025 NoteMer[facility]04-30-2025 Miscellaneous Notes* Telephone Encounter - Xiomara Ly APRN.CNP - 10/14/2024 4:00 PM EDT This concern was discussed and addressed at 10/14/24 appointment. Xiomara Ly APRN.CNP documented in this encounterSumma Health W[facility]04-30-2025 Telephone encounter Note * Telephone Encounter - Xiomara Ly APRN.CNP - 10/14/2024 4:00 PM EDT This concern was discussed and addressed at 10/14/24 appointment. Xiomara Ly APRN.CNP [facility] Phone: [phone] Instructions* Patient Instructions* Xiomara Ly APRN.CNP - 10/14/2024 3:28 PM EDT -Updated blood testing today -Consider liver US based on current alk phos level (once resulted) and breakdown of labs -Consult to nephrology for evaluation of elevated BUN, Cr, and decreased GFR. -F/U with Dr. Murillo in 3-6 months for further evaluation of esophageal motility unless above labs are abnormal; if so, will instruct pt on sooner follow-up documented in this encounterSumma Health W[facility]04-30-2025 History of Present illness Narrative* Xiomara Ly APRN.CNP - 10/14/2024 3:00 PM EDT SUBJECTIVE 74 year old male with lymphocytic colitis here for follow-up. Last visit 08/26/[address] Murillo. LAST PLAN (08/24/24): -treat and avoid constipation with Miralax and stool softeners -Blood and stool tests -EGD with possible dilation -continue with PPI Changes and test results since last visit: -No longer having any issues with constipation or diarrhea -Biggest complaint today is that he has a lot of abdominal fluid retention, accompanied with swelling in his lower extremities. He is on torsemide, which he feels helps. Feels that the abdominal fluid retention has gotten worse over the last couple of months. -Has been seeing a sort of massage therapist that assists with lymphatic drain therapy. Per pt, he usually is able to get rid of a lot of fluid after his sessions, but recently the therapist felt that something was blocked . -Has been following with pulmonology for management of recurrent pleural effusion. They injected steroids into his pleural space and then he was doing daily pleural drains until 09/25/24. Now s/p thoracentesis today. They will continue to follow fluid accumulation in the pleural space, but advised pt that he should continue to follow with us for management of his abdominal and lower extremity swelling. -D/t slightly low albumin (3.8) Dr. Murillo started him on 65 g of additional protein in addition tohis regular diet. Of note, albumin and protein levels have been WNL in recent months. -Had an EGD earlier this month, which noted abnormal motility in the middle third and lower third of the esophagus; he was advised to do routine esophageal manometry, but would like to come back to that problem after his current concern has made improvement. Current Clinical Symptoms - # of bowel movements daily: 2-3 - # of liquid stools daily: 0 - Consistency: formed - Bloody bowel movements: No - Urgency: No - Abdominal pain: Yes, Daily, generalized, tightness - Abdominal distention: yes, feels very tight - Nausea/vomiting: No - Appetite is good. - Weight loss over last 3 months: Weight is 197 lbs; has wide weight fluctuations, going between 176 lbs and 198 lbs, d/t fluid retention. - General well-being: average / baseline NSAIDs: no Smoking: no PHYSICAL EXAMINATION BP 110/65 Pulse 84 Temp 97.2 Ht 6' 0 (1.83m) Wt 197 lb (89.4kg) SpO2 95% BMI 26.71 kg/(m^2). General Appearance: alert, oriented x 3, pleasant and in no acute distress Heart:regular rate and rhythm, no murmurs or gallops Lungs: clear & equal BL Abdomen: Moderately distended. Normal bowel sounds. Tight and non-tender. No masses or organomegaly. Skin: no rashes or lesions REVIEWED ITEMS Labs: CBC: WBC (k/uL) Date Value 10/14/2024 7.85 Hematocrit (%) Date Value 10/14/2024 39.8 MCV (fL) Date Value 10/14/2024 97.5 Platelet Count (k/uL) Date Value 10/14/2024 183 Lymphocytes % (%) Date Value 04/20/2024 11.9 Hepatic Function Panel: Albumin (g/dL) Date Value 10/14/2024 4.2 Bilirubin, Total (mg/dL) Date Value 10/14/2024 0.7 Alkaline Phosphatase (U/L) Date Value 10/14/2024 124 (H) AST (U/L) Date Value 10/14/2024 49 (H) ALT (U/L) Date Value 10/14/2024 40 Protein, Total (g/dL) Date Value 10/14/2024 7.5 Kidney Function: Sodium (mmol/L) Date Value 10/14/2024 141 Potassium (mmol/L) Date Value 10/14/2024 3.8 BUN (mg/dL) Date Value 10/14/2024 33 (H) Creatinine (mg/dL) Date Value 10/14/2024 1.13 Medications: Current Outpatient Medications Medication Sig potassium chloride (K-TAB) 20 mEq TbER 2 tablets by ORAL/FEEDING TUBE route three times a day. pantoprazole DR (PROTONIX) 40 mg tablet Take 40 mg by mouth once daily. ascorbic acid, vitamin C, (VITAMIN C) 500 mg tablet Take 1,000 mg by mouth once daily. multivit-min/ferrous fumarate (MULTI VITAMIN ORAL) Take 1 tablet by mouth once daily. guaifenesin/dextromethorphan (MUCINEX DM ORAL) Take by mouth two times a day. loratadine (CLARITIN) 10 mg tablet Take 10 mg by mouth once daily. calcium gqf-frq-Q5-Zn-helicopter specialist-kian 250 mg-40 mg- 125 unit-3.75mg tab Take by mouth. diclofenac (VOLTAREN) 1 % topical gel amoxicillin (AMOXIL) 500 mg capsule allopurinol (ZYLOPRIM) 300 mg tablet Take 300 mg by mouth once daily. atorvastatin (LIPITOR) 10 mg tablet Take 1 tablet by mouth once daily. quiNINE 324 mg capsule Take 1 capsule by mouth every 12 hours. torsemide (DEMADEX) 100 mg tablet Take 1 tablet by mouth once daily. No current facility-administered medications for this visit. PAST MEDICAL HISTORY Diagnosis Date GERD (gastroesophageal [...] no drink since 06/2023 Drug use: Never Assessment IMPRESSION 74 year old male with PMHx of HTN, anasarca of unknown etiology, gout, hypokalemia, hypomagnesemia,recurrent pleural effusion, and lymphocytic colitis. His lymphocytic colitis was diagnosed after a colonoscopy in 04/2024 and subsequently treated with a course of budesonide. He saw a resolution of s ymptoms and then had some constipation in 08/2024, which has also since resolved. Today, he reports he is having regular bowel movements and denies urgency, hematochezia, nausea or GERD. He does continue to have abdominal pain, which he describes as tightness and feels is r/t continued fluid retention. Has been following with pulmonology for monitoring of pleural effusion and thoracentesis. He was advised to continue to f/u with us re: fluid retention in abdomen and lower extremities. Last labs were a month ago, and at the time showed mildly elevated alk phos (140), but liver enzymes were otherwise all normal. Also showed high BUN (45), high Creatinine (1.72), low GFR (41), and low potassium (3.1- on a potassium supplement). There was a previous question of protein losi ng enteropathy, but pt continues to have fluid retention, despite protein and albumin levels havingbeen stable for several months. Would like pt to be evaluated by nephrology given abnormal kidney labs and will obtain updated labs to look into any liver-base etiology and, if abnormal, will refer to hepatology for further evaluation. Note: EGD earlier this month showed abnormal esophageal motility. Would like to get esophageal manometry at some point, but pt feels this is secondary to addressing his fluid retention. When we revisit this, will get manometry and/or have pt evaluated in the swallowing center. PLAN -Updated blood testing today -Consider liver US based on current alk phos level (once resulted) and breakdown of labs -Consult to nephrology for evaluation of elevated BUN, Cr, and decreased GFR. -F/U with Dr. Murillo in 3-6 months for further evaluation of esophageal motility unless above labs are abnormal; if so, will instruct pt on sooner follow-up I spent a total of 36 minutes on the date of the service which included preparing to see the patient, [id number] patient care, completing clinical documentation, obtaining and/or reviewing separately obtained history, performing a medically appropriate examination, counseling and educating the pat ient/family/caregiver, and ordering medications, tests, or procedures. Xiomara Ly APRN.CURT 10/15/2024 9:00 AM documented in this encounterSumma Health Wad[facility]04-30-2025 NoteMer[facility]04-30-2025 NoteMercer County Community Hospital04-30-2025 History of Present illness Narrative* Triston Riggs MD - 10/14/2024 1:04 PM EDT Images from the original note were not included. Respiratory [facility] Pulmonary Consultation CC: Persistent RIGHT pleural effusion Sav Raymundo is a 74 year old male sent by Dr. STEPHANE Cesar MD for evaluation of persistent RIGHT pleural effusion. My final recommendations will be communicated to the requesting health care provider by way of the shared medical record for internal providers or letter via the [employer] for external providers. Assessment and Plan 1. Panserositis with associated fluid collections of unclear etiology Pleuritis with persistent (currently) transudate effusion H/o pericardial effusion (08/15/2023) Ascites 2. Lymphocytic colitis 3. Chronic cough Plan: 1. US of RIGHT chest Small dependent largely anechoic effusion with few mobile septations. Small volume of perihepatic ascites seen. 2. Will perform US guided aspiration of pleural effusion now and give second dose if intrapleural steroids (400 mg triamcinolone) 3. Resume daily aspiration of TPC tomorrow and record output. If 100 ml out or less go to every other day drainage. Everytime there are consecutive aspirations of 100 ml or less add a day between aspirations. 4. Continue diuretic regimen as established. 5. Monitor salt intake 6. Encouraged regular progressive physical activity. HPI: [...] did he have some sense of limitation. 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 Since he was last seen by me he was tapped and interpleural steroids were injected on 09/08/2024. Helast drained regularly 09/09 - 09/25 with output dropping to about 100 ml. He presented for a second steroid injection on 09/26 and there was no enough fluid to access the chest and the procedure not done. He subsequently was advised to hold off on further drainage of the TPC to see if there would be any appreciable re-accumulation of fluid. He does note increased LE edema and abdominal girth. Excerpt from Dr Cesar 05/20/2024. Mr Raymundo is a 71 y/o, from the [facility], here for follow-up for pleural effusion. [...] referred for pleurodesis to thoracic surgery in [facility], which he underwent inJune 2023. Though no pleural fluid analysis done, but pleural biopsy showed pleuritis. Post pleurodesis, he continued to have significant drainage, tunneled pleural catheter was placed. He was then hospitalized ( abdominal bloating ) -in [facility], and responded well to diuresis. He has [...] other day) -Rheumatologic assessment done, workup negative, economic adviser has no evidence of any autoimmune disease -Off prednisone for the last 5 months -Off Plaquenil for the past 3 weeks -On diuretics, now on torsemide Interestingly, on further discussion, mostly with economic adviser, we have uncovered that he has been [...] Medications Medication Sig Dispense Refill potassium chloride (K-TAB) 20 mEq TbER 2 tablets by ORAL/FEEDING TUBE route three times a day. [address] (PROTONIX) 40 mg tablet Take 40 mg by mouth once daily. budesonide, enteric coated [...] 10 mg by mouth once daily. calcium rec-zha-S5-Zn-helicopter specialist-kian 250 mg-40 mg- 125 unit-3.75mg tab Take by mouth. diclofenac (VOLTAREN) 1 % topical gel amoxicillin (AMOXIL) 500 mg capsule allopurinol (ZYLOPRIM) 300 mg tablet Take 300 mg by mouth once daily. atorvastatin (LIPITOR) 10 mg tablet Take 1 tablet by mouth once daily. torsemide (DEMADEX) 100 mg tablet Take 1 tablet by mouth once daily. [address] (PROTONIX) 40 mg tablet Take 1 tablet by mouth two times a day. 180 tablet 0 No current facility-administered medications for [...] systems is otherwise negative. PHYSICAL EXAMINATION: BP 141/87 Pulse 88 Temp 96.8 Resp 16 SpO2 98% General appearance: Well [...] is normal. LABS: Glucose (mg/dL) Date Value 09/11/2024 107 Potassium (mmol/L) Date Value 09/11/2024 4.9 Sodium (mmol/L) Date Value 09/11/2024 137 Chloride (mmol/L) Date Value 09/11/2024 100 CO2 (mmol/L) Date Value 09/11/2024 24 Creatinine (mg/dL) Date Value 09/11/2024 1.71 BUN (mg/dL) Date Value 09/11/2024 53 Anion Gap (mmol/L) Date Value 09/11/2024 13 Calcium, Total (mg/dL) Date Value 09/11/2024 9.2 Protein, Total (g/dL) Date Value 09/03/2024 7.4 Albumin (g/dL) Date Value 09/03/2024 4.1 Bilirubin, Total (mg/dL) Date Value 09/03/2024 0.6 Alkaline Phosphatase (U/L) Date Value 09/03/2024 140 AST (U/L) Date Value 09/03/2024 27 ALT (U/L) Date Value 09/03/2024 12 CBC with diff: WBC 8.65 11/05/2024 RBC 3.89 11/05/2024 Hemoglobin 12.4 11/05/2024 Hematocrit 38.3 11/05/2024 MCV 98.5 11/05/2024 MCH 31.9 11/05/2024 MCHC 32.4 11/05/2024 RDW-CV 16.2 11/05/2024 Platelet Count 150 11/05/2024 MPV 9.8 11/05/2024 Neutrophils % 84.6 10/15/2024 Lymphocytes % 7.2 10/15/2024 Monocytes % 7.3 10/15/2024 Eosinophils % 0.0 10/15/2024 Basophils % 0.1 10/15/2024 Abs Neut 9.45 10/15/2024 Abs Reynolds 0.81 10/15/2024 Abs Eosin <0.03 10/15/2024 Abs Baso <0.03 10/15/2024 04/28/2024 Colonoscopy/EGD A. Duodenum, biopsy: -Duodenal mucosa [...] 36 % 39 80 (H) 80 (H) Reynolds%, BF % 6 Macro%, BF 64 - [...] Pulmonology. Pulmonary, Allergy & Critical Care Medicine [facility] documented in this encounterSumma Health Wad[facility]04-29-2025 History of Present illness Narrative* Patricia Coello, RT(R) - 10/13/2024 1:00 PM EDT Radiology Service Progress Note PATIENT NAME: Sav Raymundo DATE OF SERVICE: October 13, 2024 TIME: 1:12 PM PATIENT IDENTITY VERIFICATION COMPLETED USING TWO [...] PATIENT PRESENTS WITH AN IMPLANTABLE OR ATTACHED TELEVISION REPORTER: No RADIOLOGY DEPARTMENT: General X-ray: Exam(s) Completed: Chest X-Ray PERIPHERAL IV DATA: Not applicable SIGNED BY: RT Cleveland(R) October 13, 2024 1:12 PM documented in this encounterSumma Health Wad[facility]04-29-2025 NoteMer[facility]04-18-2025 NoteMer[facility]04-18-2025 History of Present illness Narrative* Katerina Contreras PA-C - 10/02/2024 1:10 PM EDT Pt s/p intrapleural steroids but was continuing to have daily drainages of ~ 150 ml. Was set up for2nd injections but not enough fluid on US for procedure. Pt to hold drainage until he sees Dr. Riggs (10/14/24) and will get CXR prior to visit, day of or day before. Pt and are in agreement. Katerina Contreras PA-C documented in this encounterSumma Health Wad[facility]04-11-2025 NoteQ3 Patient Name: Sav Raymundo Procedure Date: 09/25/2024 11:14 AM Date of : 1950 Admit Type: Outpatient Age: 74 Gender: Male Note Status: Finalized Attending MD: Shay Dennis , , [id number] Procedure: Upper GI endoscopy Indications: Dysphagia Providers: Shay Dennis Patient Profile: This is a 74 year old male. Refer to note in patient chart for documentation of history and physical. Referring Physician: Sue Murillo MD (Referring MD) [...] by the physician, the nurse and the fisher troll line in the pre-procedure area in the endoscopy [...] Classification of Esophagogastric Junction Integrity. Impression: - Nor (more content not included)...[id number] Nurse Note* Obi Flower LPN - 09/25/2024 11:52 AM EDT AMBULATORY PATIENT EDUCATION NOTE TOPIC: GI PROCEDURES: Esophagogastroduodenoscopy(EGD) for control of bleeding,dilation(any means),imaging,tube placement READINESS TO LEARN INSTRUCTION PROVIDED TO: Patient, readness to learn accessed prior to procedure COGNITIVE ABILITY: Alert and oriented PTED MOTIVATION TO LEARN: Interested FAMILY SUPPORT: High - Very involved in pt care IPATIENT LEARNS BEST BY: Individual Instruction FACTORS AFFECTING LEARNING: None PHYSICAL LIMITATIONS AFFECTING LEARNING: None LEARNING RESPONSE METHOD OF INSTRUCTION: Individual instruction PATIENT / FAMILY RESPONSE: Verbalizes understanding of: WORSENING CONDITION- Signs and symptoms of aworsening condition that warrant a call to the physician FOLLOW-UP PLAN: Patient instructed to call with any further issues SUPPLEMENTAL MATERIAL: Procedure Discharge Instructions REFERRAL (RECOMMENDATION): None [facility]04-11-2025 Nurse Note* Obi Flower LPN - 09/25/2024 11:52 AM EDT AMBULATORY PATIENT EDUCATION NOTE TOPIC: GI PROCEDURES: Esophagogastroduodenoscopy(EGD) for control of bleeding,dilation(any means),imaging,tube placement READINESS TO LEARN INSTRUCTION PROVIDED TO: Patient, readness to learn accessed prior to procedure COGNITIVE ABILITY: Alert and oriented PTED MOTIVATION TO LEARN: Interested FAMILY SUPPORT: High - Very involved in pt care IPATIENT LEARNS BEST BY: Individual Instruction FACTORS AFFECTING LEARNING: None PHYSICAL LIMITATIONS AFFECTING LEARNING: None LEARNING RESPONSE METHOD OF INSTRUCTION: Individual instruction PATIENT / FAMILY RESPONSE: Verbalizes understanding of: WORSENING CONDITION- Signs and symptoms of aworsening condition that warrant a call to the physician FOLLOW-UP PLAN: Patient instructed to call with any further issues SUPPLEMENTAL MATERIAL: Procedure Discharge Instructions REFERRAL (RECOMMENDATION): None * Amrik Mast RN - 09/25/2024 10:48 AM EDT PRE OP LEARNING ASSESSMENT PROCEDURE/SURGERY: GI PROCEDURES: EGD READINESS TO LEARN COGNITIVE ABILITY: Alert and oriented MOTIVATION TO LEARN: Interested FAMILY SUPPORT: High - Very involved in pt care PATIENT LEARNS BEST BY: Individual Instruction FACTORS AFFECTING LEARNING: None PHYSICAL LIMITATIONS AFFECTING LEARNING: None Electronically Signed By: Amrik Mast RN In Department: GASTROENTEROLOGY documented in this encounterSumma Health Wadsworth - [facility]04-11-2025 History and physical note * Shay Dennis MD - 09/25/2024 11:30 AM EDT ENDOSCOPY HISTORY AND PHYSICAL EXAM Sav Raymundo [id number] Subjective HPI: This is a 74 year old male who presents for endoscopy. She was recently seen in Pt stated that he is having problems swallowing. Pt coughs and throws up for the food that gets stuck and then hecan eat some more. Was a complaint noted his last outpatient gastroenterology clinic in August 2024. He did previously undergo an EGD with dilation using a 60 Swedish Keller dilator in April 2024 PAST ANESTHESIA HISTORY: No history of adverse event PAST MEDICAL HISTORY Diagnosis Date GERD (gastroesophageal [...] TPC insertion. TOTAL KNEE REPLACEMENT Right 06/25/2016 Prior to Admission medications as of 09/08/24 1054 Medication Sig Last Dose Taking potassium chloride (K-TAB) 20 mEq TbER 2 tablets by ORAL/FEEDING TUBE route three times a day. traZODone (DESYREL) 100 mg tablet Take 1 tablet by mouth daily at bedtime. pantoprazole DR (PROTONIX) 40 mg tablet Take 40 mg by mouth once daily. budesonide, enteric coated [...] Take 10 mg by mouth once daily. torsemide (DEMADEX) 100 mg tablet Take 1 tablet by mouth once daily. calcium puu-qxr-H6-Zn-helicopter specialist-kian 250 mg-40 mg- 125 unit-3.75mg tab Take by mouth. pantoprazole DR (PROTONIX) 40 mg tablet Take 1 tablet by mouth two times a day. diclofenac (VOLTAREN) 1 % topical gel amoxicillin (AMOXIL) 500 mg capsule allopurinol (ZYLOPRIM) 300 mg tablet Take 300 mg by mouth once daily. atorvastatin (LIPITOR) 10 mg tablet Take 1 tablet by mouth once daily. ALLERGIES Allergen Reactions Tramadol Mental Status Change Objective PHYSICAL EXAM: The remainder of the physical exam is noncontributory. AIRWAY: patent, good bilateral air entry LUNGS: no wheezes or crackles CARDIAC: , normal S1S2 Assessment/Plan ASA Class: Active Problems: * No active hospital problems. * Resolved Problems: * No resolved hospital problems. * Medication and Non-Pharmacologic VTE Prophylaxis/Anticoagulants VTE Prophylaxis: not indicated for procedure Provisional Diagnosis/Treatment Plan: EGD: Possible dilation under MAC sedation Consent has been signed Shay Dennis MD 09/24/2024 4:08 PM [facility]04-11-2025 History and physical note* Shay Dennis MD - 09/25/2024 11:30 AM EDT ENDOSCOPY HISTORY AND PHYSICAL EXAM Sav Raymundo [id number] Subjective HPI: This is a 74 year old male who presents for endoscopy. She was recently seen in Pt stated that he is having problems swallowing. Pt coughs and throws up for the food that gets stuck and then hecan eat some more. Was a complaint noted his last outpatient gastroenterology clinic in August 2024. He did previously undergo an EGD with dilation using a 60 Swedish Keller dilator in April 2024 PAST ANESTHESIA HISTORY: No history of adverse event PAST MEDICAL HISTORY Diagnosis Date GERD (gastroesophageal [...] TPC insertion. TOTAL KNEE REPLACEMENT Right 06/25/2016 Prior to Admission medications as of 09/08/24 1054 Medication Sig Last Dose Taking potassium chloride (K-TAB) 20 mEq TbER 2 tablets by ORAL/FEEDING TUBE route three times a day. traZODone (DESYREL) 100 mg tablet Take 1 tablet by mouth daily at bedtime. pantoprazole DR (PROTONIX) 40 mg tablet Take 40 mg by mouth once daily. budesonide, enteric coated [...] Take 10 mg by mouth once daily. torsemide (DEMADEX) 100 mg tablet Take 1 tablet by mouth once daily. calcium zwn-rhd-U1-Zn-helicopter specialist-kian 250 mg-40 mg- 125 unit-3.75mg tab Take by mouth. pantoprazole DR (PROTONIX) 40 mg tablet Take 1 tablet by mouth two times a day. diclofenac (VOLTAREN) 1 % topical gel amoxicillin (AMOXIL) 500 mg capsule allopurinol (ZYLOPRIM) 300 mg tablet Take 300 mg by mouth once daily. atorvastatin (LIPITOR) 10 mg tablet Take 1 tablet by mouth once daily. ALLERGIES Allergen Reactions Tramadol Mental Status Change Objective PHYSICAL EXAM: The remainder of the physical exam is noncontributory. AIRWAY: patent, good bilateral air entry LUNGS: no wheezes or crackles CARDIAC: , normal S1S2 Assessment/Plan ASA Class: Active Problems: * No active hospital problems. * Resolved Problems: * No resolved hospital problems. * Medication and Non-Pharmacologic VTE Prophylaxis/Anticoagulants VTE Prophylaxis: not indicated for procedure Provisional Diagnosis/Treatment Plan: EGD: Possible dilation under MAC sedation Consent has been signed Shay Dennis MD 09/24/2024 4:08 PM documented in this encounterSumma Health Wad[facility]04-11-2025 Nurse Note* Amrik Mast RN - 09/25/2024 10:48 AM EDT PRE OP LEARNING ASSESSMENT PROCEDURE/SURGERY: GI PROCEDURES: EGD READINESS TO LEARN COGNITIVE ABILITY: Alert and oriented MOTIVATION TO LEARN: Interested FAMILY SUPPORT: High - Very involved in pt care PATIENT LEARNS BEST BY: Individual Instruction FACTORS AFFECTING LEARNING: None PHYSICAL LIMITATIONS AFFECTING LEARNING: None Electronically Signed By: Amrik Mast RN In Department: GASTROENTEROLOGY [facility]04-09-2025 Telephone encounter Note* Telephone Encounter - Jahaira Wood - 09/23/2024 11:59 AM EDT Received missed visit notes from [facility] Health Records scanned in [facility] Jahaira Wood clinic administrator [facility]04-09-2025 Miscellaneous Notes* Telephone Encounter - Israel Jahaira - 09/23/2024 11:59 AM EDT Received missed visit notes from [facility] Health Records scanned in [facility] Jahairanatalee Todd asst documented in this encounterSumma Health Wadsworth - Rittman [facility] Nurse Note* Melinda Calderón RN - 09/18/2024 3:20 PM EDT GI Pre-Procedure Spoke with patient: Yes Confirmed date scheduled and patient report time: Yes Procedure Planned:Esophagogastroduodenoscopy(EGD) for control of bleeding,dilation(any means),imaging,tube placement Esophagogastroduodenoscopy(EGD) with or without biopies based on clinical findings, removal of polyps or lesions Is the patient on blood thinners?yes-aspirin. Pt will Contact PCP for instructions regarding stopping anticoagulant medication pre-procedure Procedure Instructions given to patient: Yes, and they verbalized their understanding of instructions given Patient instructed to take prescribed preparation prior to procedure:Yes, and they verbalized theirunderstanding of instructions given Patient instructed to have family/friend present for procedure transport home:Patient/patient technical account representative was told that if they do not have a responsible adult accompany them to their procedure; and remain in the endoscopy area until they are discharged; that their procedure cannot be done with s edation or anesthesia and may be cancelled. and They verbalized their understanding and agree to have a responsible adult accompany the patient to their procedure and remain in the endoscopy area. Any barriers to Patient learning: Patient/Patient Software Administrator responded appropriately on phone. Type of instruction given: Verbal by telephone contact. Melinda Calderón, RN [facility]04-04-2025 Nurse Note* Melinda Calderón RN - 09/18/2024 3:20 PM EDT GI Pre-Procedure Spoke with patient: Yes Confirmed date scheduled and patient report time: Yes Procedure Planned:Esophagogastroduodenoscopy(EGD) for control of bleeding,dilation(any means),imaging,tube placement Esophagogastroduodenoscopy(EGD) with or without biopies based on clinical findings, removal of polyps or lesions Is the patient on blood thinners?yes-aspirin. Pt will Contact PCP for instructions regarding stopping anticoagulant medication pre-procedure Procedure Instructions given to patient: Yes, and they verbalized their understanding of instructions given Patient instructed to take prescribed preparation prior to procedure:Yes, and they verbalized theirunderstanding of instructions given Patient instructed to have family/friend present for procedure transport home:Patient/patient technical account representative was told that if they do not have a responsible adult accompany them to their procedure; and remain in the endoscopy area until they are discharged; that their procedure cannot be done with s edation or anesthesia and may be cancelled. and They verbalized their understanding and agree to have a responsible adult accompany the patient to their procedure and remain in the endoscopy area. Any barriers to Patient learning: Patient/Patient Software Administrator responded appropriately on phone. Type of instruction given: Verbal by telephone contact. Melinda Calderón RN documented in this encounterSumma Health W[facility]03-31-2025 Telephone encounter Note * Telephone Encounter - Andree Colby RN - 09/14/2024 12:56 PM EDT Left message on EVAN Campos's voicemail after d/w pleaural team. Pleurx is draining as expected. Stomach distention should not be a symptom of pleural drainage and may need to be further evaluated in GI or the ED if symptoms persists. [facility]03-31-2025 Miscellaneous Notes* Telephone Encounter - Andree Colby RN - 09/14/2024 12:56 PM EDT Left message on EVAN Campos's voicemail after d/w pleaural team. Pleurx is draining as expected. Stomach distention should not be a symptom of pleural drainage and may need to be further evaluated in GI or the ED if symptoms persists. * Telephone Encounter - Amanda Brooks - 09/14/2024 10:28 AM EDT Beth from [facility] called with an update. They have started draining on daily for pluerx catheter. They have been getting between 170 and 210 daily. Patient had SOB on and denies SOB other days. Stomach is distended Beth can be reached at [phone] documented in this encounterSumma Health Wad[facility]03-31-2025 Telephone encounter Note * Telephone Encounter - Amanda Brooks - 09/14/2024 10:28 AM EDT Beth from [facility] called with an update. They have started draining on daily for pluerx catheter. They have been getting between 170 and 210 daily. Patient had SOB on and denies SOB other days. Stomach is distended Beth can be reached at [phone] [facility]03-25-2025 NoteMercer County Community [facility]03-21-2025 History of Present illness Narrative* Jose Antonio Hopper MD - 09/04/2024 2:06 PM EDT PROGRESS NOTES Patient Name: Sav Raymundo SERVICE DATE: 09/04/2024 SERVICE TIME: 2:11 PM HPI: Mr. Raymundo is a 74 year old male who presents for Lab & Test Results and Hospital Follow Up.Treated for hypokalemia secondary to Zaroxolyn,stopped.Chest drainage has subsided centigrade/o insomnia MEDICATIONS: Current Outpatient Medications Medication Sig Dispense Refill pantoprazole DR (PROTONIX) 40 mg tablet Take 40 mg by mouth once daily. budesonide, enteric coated [...] Take 10 mg by mouth once daily. torsemide (DEMADEX) 100 mg tablet Take 1 tablet by mouth once daily. 90 tablet 0 calcium bme-hhx-O7-Zn-helicopter specialist-kian 250 mg-40 mg- 125 unit-3.75mg tab Take by mouth. diclofenac (VOLTAREN) 1 % topical gel amoxicillin (AMOXIL) 500 mg capsule allopurinol (ZYLOPRIM) 300 mg tablet Take 300 mg by mouth once daily. atorvastatin (LIPITOR) 10 mg tablet Take 1 tablet by mouth once daily. potassium chloride (K-TAB) 20 mEq TbER 2 tablets by ORAL/FEEDING TUBE route three times a day. 540 tablet 0 traZODone (DESYREL) 100 mg tablet Take 1 tablet by mouth daily at bedtime. [address] (PROTONIX) 40 mg tablet Take 1 tablet by mouth two times a day. 180 tablet 0 No current facility-administered medications for [...] Negative for lesions, rash, and itching. PSYCHIATRIC: Positive for sleep disturbance, no mood disorder and recent psychosocial stressors. HEMATOLOGIC/LYMPHATIC/IMMUNOLOGIC: Negative for prolonged bleeding, bruising easily, and swollen nodes. ENDOCRINE: Negative for cold or heat intolerance, polyuria, polydipsia and goiter. PHYSICAL EXAMINATION: BP 112/78 Pulse 77 Temp 98.6 Resp 15 Ht 6' 0 (1.83m) Wt 187 lb (84.8kg) SpO2 96% BMI25.36 kg/(m^2). General appearance: Normal, healthy, cooperative, in [...] diaphragmatic excursion. Lungs clear to auscultation. Heart: [place] normal. Precordium quiet. RRR. Normal HS with [...] ICD9: 511.9, ICD10: J90 (primary diagnosis) - Will have steroid instillation through Pig tail tube on 08/16 - POTASSIUM CHLORIDE ER 20 MEQ TABLET,EXTENDED RELEASE 2. Hypokalemia - ICD9: 276.8, ICD10: E87.6 - POTASSIUM CHLORIDE ER 20 MEQ TABLET,EXTENDED RELEASE - BASIC METABOLIC PANEL 3. Lymphocytic colitis - ICD9: 558.9, ICD10: K52.832 4. Anemia, unspecified type - ICD9: 285.9, ICD10: D64.9 - COMPLETE BLOOD COUNT 5. Chronic insomnia - ICD9: 780.52, ICD10: F51.04 - TRAZODONE 100 MG TABLET Jose Antonio Hopper MD SIGNATURE: Jose Antonio Hopper MD DATE: September 04, 2024 TIME: 2:11 PM documented in this encounterSumma Health W[facility]03-21-2025 NoteMercer County [facility]03-21-2025 Telephone encounter Note* Telephone Encounter - Benny Johnson - 09/04/2024 10:57 AM EDT 09/04 - Scheduled patient for Thoracentesis at [facility] for 09/08 @ [facility]03-21-2025 Miscellaneous Notes* Telephone Encounter - Benny Johnson - 09/04/2024 10:57 AM EDT 09/04 - Scheduled patient for Thoracentesis at [facility] for 09/08 @ documented in this encounterSumma Health Wad[facility]03-19-2025 Telephone encounter Note * Telephone Encounter - Hanane Bonilla APRN.CNP - 09/02/2024 4:13 PM EDT Spoke with [facility] who states they have not had steroid injection yet (updated). She is wondering aboutbest practice to get PleurX to drain and if it is okay to have patient cough during draining. Advised that coughing is okay during draining. Currently draining daily till appointment with Dr. Riggs. All questions answered to satisfaction. Hanane Bonilla APRN.CNP 4:22 PM, 09/02/2024 [facility] Work Phone: [phone]) 422-416003-19-2025 Miscellaneous Notes* Telephone Encounter - Hanane Bonilla APRN.CNP - 09/02/2024 4:13 PM EDT Spoke with [facility] who states they have not had steroid injection yet (updated). She is wondering aboutbest practice to get PleurX to drain and if it is okay to have patient cough during draining. Advised that coughing is okay during draining. Currently draining daily till appointment with Dr. Riggs. All questions answered to satisfaction. Hanane Bonilla APRN.CNP 4:22 PM, 09/02/2024 * Telephone Encounter - Susan Rodas RN - 09/02/2024 3:57 PM EDT Images from the original note were not included. [facility] Phone Encounter DATE of SERVICE: 09/02/2024 TIME of SERVICE: 3:57 PM Status: Non-urgent, needs attention Service/Provider: Thoracic Surgery Ronaldo Flood M.D. Reason for call: Care Coordination Contact information: [facility] nurse, Resolution: Sent to [place] Comments: Roney Campos home care nurse, called the [facility] post-discharge line to ask to speak with Della Barragan CNP as she just left a visit with the patient, Sav Raymundo. Beth has questions about PleurX catheter. She is wondering If she should be having pt cough to get more drainage out or if she should be letting it drain as is. HHN would like advice and instruction on PleurX. Susan Rodas RN Date of Resolution: 09/02/2024 Time of Resolution 3:57 PM documented in this encounterSumma Health Wad[facility] - [facility]03-19-2025 Telephone encounter Note * Telephone Encounter - Susan Rodas RN - 09/02/2024 3:57 PM EDT Images from the original note were not included. [facility] Phone Encounter DATE of SERVICE: 09/02/2024 TIME of SERVICE: 3:57 PM Status: Non-urgent, needs attention Service/Provider: Thoracic Surgery Ronaldo Flood M.D. Reason for call: Care Coordination Contact information: [facility] Care nurse, Resolution: Sent to [facility] Comments: [facility] home care nurse, called the [facility] post-discharge line to ask to speak with Della Barragan CNP as she just left a visit with the patient, Sav Raymundo. Beth has questions about PleurX catheter. She is wondering If she should be having pt cough to get more drainage out or if she should be letting it drain as is. HHN would like advice and instruction on PleurX. Susan Rodas RN Date of Resolution: 09/02/2024 Time of Resolution 3:57 PM [facility]2025 History of Present illness Narrative* Raji Bynum MD - 08/27/2024 1:05 PM EDT Skin Check Location: Patient requests a full [...] lesions that fail to resolve should be re- evaluated. Cryotherapy performed today; see procedure note Diagnosis: Actinic keratosis Indication: Precancerous Location: see skin exam Consent: Verbal consent was obtained and risks were discussed, including, but not limited to risks of scarring, darker or gold letterer pigmentary changes, recurrence, incomplete removal and infection. [...] both legs Left Lower Leg - Anterior [place] scaly plaques in areas of edema, mild, early lipodermatosclerosis formation The patient was informed that stasis dermatitis is a chronic rash on the lower legs due to swellingoften caused by poor circulation. The patient was instructed to keep the legs elevated when seated,avoid standing for long periods of time, and to wear compression stockings. Patient declines treatment at this time. 4. Lentigines (2) Head - Anterior (Face), Torso - Posterior (Back) Scattered de la garza macules in sun-exposed areas. The patient was informed that lentigines are benign pigmented lesions that occur on sun-exposed andsun-damaged skin. No treatment is necessary. Recommended regular use of broad spectrum sunscreen SPF 30 or higher Next Visit: 1 year documented in this encounterCedar County Memorial HospitalOkjopjpsrv22-26-9198 Telephone encounter Note* Telephone Encounter - Britney Hsu RN - 08/26/2024 4:27 PM EDT Patient spouse (ayaka) returned call. Verified patient name and . Advised potassium levels were low and elevated kidney function. To please follow up with PCP and Dr. oHpper. verbalized understanding and agreed, Will follow up as needed. Britney Shen RN [facility]03-12-2025 Miscellaneous Notes* Telephone Encounter - Britney Hsu RN - 08/26/2024 4:27 PM EDT Patient spouse (ayaka) returned call. Verified patient name and . Advised potassium levels were low and elevated kidney function. To please follow up with PCP and Dr. Hopper. verbalized understanding and agreed, Will follow up as needed. Britney Shen RN * Telephone Encounter - Britney Hsu RN - 08/26/2024 12:44 PM EDT ----- Message from Sue Murillo MD sent at 08/26/2024 12:41 PM EDT ----- Please call patient and let him know that his potassium levels are down with elevated kidney function test. He is already on potassium supplements. Needs to touch base with his PCP and Dr Hopper for further management Attempted to call patient no answer. Left message to return call. Mychart message sent to call nurse. Will follow up as needed. Britney Shen RN * Result Encounter Note - Sue Murillo MD - 08/26/2024 12:41 PM EDT Please call patient and let him know that his potassium levels are down with elevated kidney function test. He is already on potassium supplements. Needs to touch base with his PCP and Dr Hopper for further management documented in this encounterSumma Health W[facility] - [facility]03-12-2025 Telephone encounter Note * Telephone Encounter - Britney Hsu RN - 08/26/2024 12:44 PM EDT ----- Message from Sue Murillo MD sent at 08/26/2024 12:41 PM EDT ----- Please call patient and let him know that his potassium levels are down with elevated kidney function test. He is already on potassium supplements. Needs to touch base with his PCP and Dr Hopper for further management Attempted to call patient no answer. Left message to return call. Mychart message sent to call nurse. Will follow up as needed. Britney Shen RN [facility]03-12-2025 Progress note* Result Encounter Note - Sue Murillo MD - 08/26/2024 12:41 PM EDT Please call patient and let him know that his potassium levels are down with elevated kidney function test. He is already on potassium supplements. Needs to touch base with his PCP and Dr Hopper for further management [facility] Work Phone: [phone] History of Present illness Narrative* Sue Murillo MD - 08/24/2024 11:00 AM EDT Follow Up Visit SUBJECTIVE 74 year old male with lymphocytic colitis here for follow-up. Last seen 05/26/2024. Changes and test results since last visit: He is off of budesonide since a month Coughing, vomiting and swallowing issues. Started on Lost about 11 lbs weight loss. Wellness Educator wants to start steroid injections directly into [...] population = 50. Five points is a clinicallymeaningful difference.) Physical T-Score 44.9 Mental T-Score 43.5 10/23/2023 PROMIS Global Health Scale Physical Health Percentile 31 Mental Health Percentile 26 Current Outpatient Medications Medication Sig Dispense Refill metOLazone (ZAROXOLYN) 5 mg tablet Take 1 tablet by mouth once daily. 30 tablet 0 budesonide, enteric coated (ENTOCORT EC) 3 mg 24 hr capsule Take 3 mg by mouth once daily. (Patientnot taking: Reported on 08/18/2024) ascorbic acid, vitamin [...] mouth once daily. 90 tablet 0 calcium owr-qwq-I9-Zn-helicopter specialist-kian 250 mg-40 mg- 125 unit-3.75mg tab Take [...] MD, MD August 23, 2024 7:06 PM * Shyla Ornelas OCCA - 08/24/2024 10:49 AM EDT Pt stated that he is having problems swallowing. Pt coughs and throws up for the food that gets stuck and then he can eat some more. documented in this encounterSumma Health Wad[facility] - [facility]03-10-2025 NoteMercer [facility]03-10-2025 NoteMercer County Community Hospital03-07-2025 Telephone encounter Note* Telephone Encounter - Ayana Cheung RN - 08/21/2024 10:28 AM EST Images from the original note were not included. [facility] Phone Encounter DATE of SERVICE: 08/21/2024 TIME of SERVICE: 10:28 AM Status: Non-urgent, needs attention Service/Provider: Thoracic Surgery Ronaldo Flood M.D. Reason for call: Care Coordination Contact information: [facility] nurse, [facility] Comments: Roney Campos home care nurse, called the [facility] post-discharge line to ask to speak with Della Barragan CNP as she just left a visit with the patient, Sav Raymundo. Beth wants to discusswith Della that the patient's weight is up to 193 pounds today, he had 220 cc of drainage from the PleurX and she has questions about if he should cough to get more drainage, also Beth mentioned the patient has a poor appetite, dizziness, lightheadedness and constipation. Ayana Cheung RN Date of Resolution: 08/21/2024 Time of Resolution 10:28 AM [facility]03-07-2025 Miscellaneous Notes* Telephone Encounter - Ayana Cheung RN - 08/21/2024 10:28 AM EST Images from the original note were not included. [facility] Phone Encounter DATE of SERVICE: 08/21/2024 TIME of SERVICE: 10:28 AM Status: Non-urgent, needs attention Service/Provider: Thoracic Surgery Ronaldo Flood M.D. Reason for call: Care Coordination Contact information: [facility] nurse, Resolution: [facility] Comments: Roney Campos home care nurse, called the [facility] post-discharge line to ask to speak with Della Barragan CNP as she just left a visit with the patient, Sav Raymundo. Beth wants to discusswith Della that the patient's weight is up to 193 pounds today, he had 220 cc of drainage from the PleurX and she has questions about if he should cough to get more drainage, also Beth mentioned the patient has a poor appetite, dizziness, lightheadedness and constipation. Ayana Cheung RN Date of Resolution: 08/21/2024 Time of Resolution 10:28 AM documented in this encounterSumma Health Wadsworth - [facility]itt[facility] Center03-04-2025 NoteMercer County Community Hospital03-04-2025 History of Present illness Narrative* Della Barragan APRN.STEAM TUNNEL FEEDER - 08/18/2024 2:06 PM EST Images from the original note were not included. Heart, Vascular and Thoracic [place] DEPARTMENT OF THORACIC SURGERY OUTPATIENT VISIT TYPE ESTABLISHED Part of this note was copied from previous note, all content has been individually reviewed, updated as necessary, and thoroughly reviewed. PT NAME: Sav Raymundo [facility] NO: [id number] THORACIC SURGEON: Ronaldo Flood M.D. DATE OF SERVICE: 08/18/2024 PRINCIPAL DX: Pleural Effusion SURGICAL HX 11/20/2023: R VATS pleural biopsy, right pbx mechanic and doxycycline pleurodesis, right Pleurx catheter insertion, right 20Fr chest tube insertion Surgical Pathology 11/20/2023: FINAL DIAGNOSIS A. Right pleura, biopsy: - Chronic pleuritis with mesothelial hyperplasia (see comment). B. Right pleura, biopsy: - Acute organizing and chronic pleuritis (see comment). DE/ 11/22/2023 Diagnosis Comment A. The biopsy contains pleural tissue with chronic inflammation and focal reactive mesothelial hyperplasia. An immunohistochemical stain for BAP 1 shows retained nuclear expression of the mesothelialcells. B. The pleura shows areas with extensive [...] CT. On 11/20/2023, patient underwent R VATS pleuralbiopsy, right pbx mechanic and doxycycline pleurodesis, right Pleurx catheter insertion, right 20Fr chest tube insertion. He was hospitalized 12/20/23 for anasarca, possible autoimmune disease, recurrent pleural effusion. Imaging did not reveal any acute findings. Patient was admitted to [facility] and started on lasix drip, improving anasarca and pleural effusion. Pleurx catheter was drained daily with significantly decreasing output [phone]. He was worked up for an autoimmune disease as well. Hewas discharged on an increased dose of lasix [...] be done every 2-4 weeks x 3. I f this does not work and he continues to have drainage, would then suggest talc pleurodesis. Dr Flood is updated on this plan and is in agreement. If a talc pleurodesis is warranted, he wishes to do this in the OR. Mr Raymundo is agreeable to this plan. Dr Riggs will be in touch to schedule the procedure next week. IMPRESSION: 73 year old male with pmh significant for recurrent right pleural effusion s/p R VATS pleural biopsy, right pbx mechanic and doxycycline pleurodesis, right Pleurx catheter insertion, right 20Fr chest tube insertion on 11/20/[address] Flood. PLAN: - continue draining the pleurex daily - Dr Riggs/pulm to perform intrapleural steroid injection - return as needed Della Barragan APRN.STEAM TUNNEL FEEDER documented in this encounterSumma Health Wadsworth - Rittman [facility] Center02-28-2025 NoteRight Eye Quality was good. Scan locations included subfoveal. Progression has been stable. Findings include normal observations. Left Eye Quality was good. Scan locations included subfoveal. Progression has been stable. Findings include normal observations. Notes Good scan with normal appearanceCedar County Memorial [id number] NoteMercer County Community Hospital02-26-2025 History of Present illness Narrative* Anne-Marie Bajwa DO - 08/12/2024 3:00 PM EST Images from the original note were not [...] laser capsulotomy, they are to notify their integrated marketing manager promptly if they have a significant change [...] resolution of the lesion. documented in this encounterCedar County Memorial [id number] Telephone encounter Note* Telephone Encounter - Maggie Leon - 08/12/2024 12:42 PM EST Patient requesting return call from Katerina. Please call [phone] I informed patient [facility] today and spoke with office. [facility]02-26-2025 Miscellaneous Notes* Telephone Encounter - Maggie Leon - 08/12/2024 12:42 PM EST Patient requesting return call from Katerina. Please call [phone] I informed patient Beth from [facility] called today and spoke with office. documented in this encounterSumma Health Wadsworth - Rittman [facility] Center02-26-2025 Telephone encounter Note * Telephone Encounter - Amanda Brooks - 08/12/2024 12:27 PM EST Beth from [facility] called and would like to speak to Katerina. Spoke with Beth She informed me that pt going to local ED for evaluation. Update: Pt had b/l US - report from [facility] was negative for DVTs was received and sent to be entered into scanned docs. Pt notified of results. Katerina Contreras PA-C [facility]02-26-2025 Miscellaneous Notes* Telephone Encounter - Amanda Brooks - 08/12/2024 12:27 PM EST Beth from [facility] called and would like to speak to Katerina. Spoke with Beth She informed me that pt going to local ED for evaluation. Update: Pt had b/l US - report from [facility] was negative for DVTs was received and sent to be entered into scanned docs. Pt notified of results. Katerina Contreras PA-C documented in this encounterSumma Health Wadsworth - [facility]itt[facility] Center02-26-2025 Telephone encounter Note * Telephone Encounter - Maggie Leon - 08/12/2024 10:21 AM EST Beth from [facility] called and updated she left a voicemail regarding this patient. He is having issues with pleurrX drain, swelling, weight gain, nausea and constipation. She would like acall back at [phone] Spoke with pt's [facility] nurse, Beth. Pt still draining daily and [...] R. Not on anticoag. Last CTs were Mar/Apr 2024. Pt/ inquire about meeting with Dr. Flood. Of note, they are meeting with PROOF PASSER Della Barragan on , 08/18/24. Update communicated to Dr. Riggs. Katerina Contreras PA-C Addendum: Nurse reports pt plans on going to [facility] Katerina Contreras PA-C [facility]02-26-2025 Miscellaneous Notes* Telephone Encounter - Maggie Leon - 08/12/2024 10:21 AM EST Beth from [facility] called and updated she left a voicemail regarding this patient. He is having issues with pleurrX drain, swelling, weight gain, nausea and constipation. She would like acall back at [phone] Spoke with pt's [facility] nurse, Beth. Pt still draining daily and [...] 2024. Pt/ inquire about meeting with Dr. Flood. Of note, they are meeting with PROOF PASSER Della Barragan on , 08/18/24. Update communicated to Dr. Riggs. Katerina Contreras PA-C Addendum: Nurse reports pt plans on going to [facility] Katerina Contreras PA-C documented in this encounterSumma Health W[facility]02-24-2025 Telephone encounter Note * Telephone Encounter - Amanda Brooks - 08/10/2024 9:35 AM EST Beth from [facility] called and would like to speak to Katerina regarding patient symptoms [facility]02-24-2025 Miscellaneous Notes* Telephone Encounter - Amanda Brooks - 08/10/2024 9:35 AM EST Beth from [facility] called and would like to speak to Katerina regarding patient symptoms documented in this encounterSumma Health Wad[facility]02-18-2025 Telephone encounter Note * Telephone Encounter - Maggie Leon - 08/04/2024 10:23 AM EST Call received from home care NurseBeth. She wanted to update our office that she is waiting to hear back from dr Flood. Patient is having issues with pleurix and they are unsure if it's due to clogging or if it's positional. Beth can be reached at [phone] [facility]02-18-2025 Miscellaneous Notes* Telephone Encounter - Maggie Leon - 08/04/2024 10:23 AM EST Call received from home care NurseBeth. She wanted to update our office that she is waiting to hear back from dr Flood. Patient is having issues with pleurix and they are unsure if it's due to clogging or if it's positional. Beth can be reached at [phone] * Telephone Encounter - Amanda Brooks - 08/03/2024 2:20 PM EST Patient called and would like to know the status of next upcoming steps. Patient asked ifDr. Riggs has spoken with Dr. Flood. Additionally stated the drainage for the past week to present. Home health care is concerned their may be blockage (a clog) in tube. 07/27- daily drain 07/28-08/01 - 150 each day Yesterday - - 35 Virgen (patient ) [phone] Patient [phone] documented in this encounterSumma Health W[facility]02-18-2025 Telephone encounter Note * Telephone Encounter - Jahaira Wood - 08/04/2024 8:38 AM EST Received missed visit notes from [facility], record scannned in [employer] Jahaira Wood, clinic administrator [facility]02-18-2025 Miscellaneous Notes* Telephone Encounter - Jahaira Wood - 08/04/2024 8:38 AM EST Received missed visit notes from [facility], record scannned in [employer] Jahaira Wood, clinic administrator documented in this encounterSumma Health W[facility]02-17-2025 Telephone encounter Note * Telephone Encounter - Amanda Brooks - 08/03/2024 2:20 PM EST Patient called and would like to know the status of next upcoming steps. Patient asked ifDr. Riggs has spoken with Dr. Flood. Additionally stated the drainage for the past week to present. Home health care is concerned their may be blockage (a clog) in tube. 07/27- 160 daily drain 07/28-08/01 - 150 each day Yesterday - 20 Today - 35 Virgen (patient ) [phone] Patient [phone] [facility]02-04-2025 History of Present illness Narrative* Jose Antonio Hopper MD - 07/21/2024 2:19 PM EST PROGRESS NOTES Patient Name: Sav Raymundo SERVICE DATE: 07/21/2024 SERVICE TIME: 2:25 PM HPI: Mr. Raymundo is a 74 year old male who presents for Effusion.Has been emptying Plerax catheter daily.Has been seeing director of environmental services at [facility].Pleural fluid analysis has been done MEDICATIONS: Current Outpatient Medications Medication Sig Dispense Refill potassium chloride ER (KLOR-CON M20) 20 mEq tablet Take 2 tablets by mouth two times a day. 360 tablet 0 torsemide (DEMADEX) 100 mg tablet Take 1 tablet by mouth once daily. 90 tablet 0 calcium vfp-ngt-I7-Zn-helicopter specialist-kian 250 mg-40 mg- 125 unit-3.75mg tab Take [...] (1.83m) Wt 194 lb (88.0kg) SpO2 98% BMI26.31 kg/(m^2). General appearance: Overweight, healthy, cooperative, in [...] diaphragmatic excursion. Lungs clear to auscultation. Heart: [place] normal. Precordium quiet. RRR. Normal HS with [...] K52.832 - On Taper Entocort Jose Antonio Hopper MD SIGNATURE: Jose Antonio Hopper MD DATE: July 21, 2024 TIME: 2:25 PM documented in this encounterSumma Health [facility]02-03-2025 History of Present illness Narrative* Triston Riggs MD - 07/20/2024 1:00 PM EST Images from the original note were not included. [facility] Consultation CC: Persistent RIGHT pleural effusion Sav Raymundo is a 74 year old male sent by Dr. STEPHANE Cesar MD for evaluation of persistent RIGHT pleural effusion. My final recommendations will be communicated to the requesting health care provider by way of the shared medical record for internal providers or letter via the [employer] for external providers. Assessment and [...] did he have some sense of limitation. [place], [place] is home care provider. Excerpt from Dr Cesar 05/20/2024. Mr Raymundo is a 71 y/o, from the [facility], here for follow-up for pleural effusion. [...] referred for pleurodesis to thoracic surgery in [facility], which he underwent inJune 2023. Though no pleural fluid analysis done, but pleural biopsy showed pleuritis. Post pleurodesis, he continued to have significant drainage, tunneled pleural catheter was placed. He was then hospitalized ( abdominal bloating ) -in [facility], and responded well to diuresis. He has [...] other day) -Rheumatologic assessment done, workup negative, economic adviser has no evidence of any autoimmune disease -Off prednisone for the last 5 months -Off Plaquenil for the past 3 weeks -On diuretics, now on torsemide Interestingly, on further discussion, mostly with economic adviser, we have uncovered that he has been [...] mouth once daily. 90 tablet 0 calcium mkg-hsd-B0-Zn-helicopter specialist-kian 250 mg-40 mg- 125 unit-3.75mg tab Take [...] 0.5 04/20/2024 Abs Neut 5.91 04/20/2024 Abs Reynolds 1.03 04/20/2024 Abs Eosin <0.03 04/20/2024 Abs [...] 36 % 39 80 (H) 80 (H) Reynolds%, BF % 6 Macro%, BF 64 - [...] Pulmonology. Pulmonary, Allergy & Critical Care Medicine [facility] documented in this encounterSumma Health W[facility]02-03-2025 [facility]Mer[facility]01-31-2025 NoteHNO ID: [id number] Author: KATERINA CONTRERAS PA-C Service: ? Author Type: Physician Captain Waiter/Waitress Type: Progress Notes Filed: 07/17/2024 14:02 Note Text: Orders for pleurX vacuum bottles signed and faxed back to [facility]. [facility] History of Present illness Narrative* Katerina Contreras PA-C - 07/17/2024 2:01 PM EST Orders for pleurX vacuum bottles signed and faxed back to [facility]. Katerina Contreras PA-C documented in this encounterSumma Health W[facility]01-30-2025 Telephone encounter Note * Telephone Encounter - Maggie Leon - 07/16/2024 2:53 PM EST Called patient's and informed her that there isn't any indication in Dr. Riggs's office notes that request any lab work at this time. [facility]01-30-2025 Miscellaneous Notes* Telephone Encounter - Maggie Leon - 07/16/2024 2:53 PM EST Called patient's and informed her that there isn't any indication in Dr. Riggs's office notes that request any lab work at this time. * Telephone Encounter - Maggie Leon - 07/16/2024 12:45 PM EST Patient is a lab in [facility] and they only see orders for body fluid, which they are unable to do. Patient would like to confirm if blood labs will need to be drawn. If so[facility] will follow up at [phone] documented in this encounterSumma Health Wad[facility]01-30-2025 Telephone encounter Note * Telephone Encounter - Maggie Leon - 07/16/2024 12:45 PM EST Patient is a lab in [facility] and they only see orders for body fluid, which they are unable to do. Patient would like to confirm if blood labs will need to be drawn. If so, [facility] will follow up at [phone] [facility]01-28-2025 Evaluation note* Diagnosis Onset Date Resolution Status Admit Date Nausea & vomiting acute July 14, 2024 4:27pm Viral respiratory illness acute July 14, 2024 4:27pm [facility] Work Phone: 1(535) 521-700301-22-2025 [facility]Mer[facility]01-22-2025 History of Present illness Narrative* Katerina Contreras PA-C - 07/08/2024 9:41 AM EST Received fax from [employer] for signature for updated pleurX draining order to daily draining for 2 months. This was completed and faxed back to them. Katerina Contreras PA-C documented in this encounterSumma Health Wad[facility]01-06-2025 [facility]Mer[facility]01-06-2025 History of Present illness Narrative* Katerina Contreras PA-C - 06/22/2024 3:10 PM EST Per request of Dr. Riggs, we plan on increasing his pleurX catheter draining to everyday. Updated orders sent to [facility] (supplies) and [facility] (faxed to [phone]). His home nurseis Beth, work cell [phone]. She is to call us if sudden cessation of drainage or 3 subsequent drains of less than 100 ml. Katerina Contreras PA-C documented in this encounterSumma Health Wad[facility]01-06-2025 History and physical note * Triston Riggs MD - 06/22/2024 9:00 AM EST Images from the original note were not included. [facility] Consultation CC: Persistent RIGHT pleural effusion Sav Raymundo is a 74 year old male sent by Dr. STEPHANE Cesar MD for evaluation of persistent RIGHT pleural effusion. My final recommendations will be communicated to the requesting health care provider by way of the shared medical record for internal providers or letter via the [employer] for external providers. Assessment and [...] did he have some sense of limitation. 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 Excerpt from Dr Cesar 05/20/2024. Mr Raymundo is a 71 y/o, from the [facility], here for follow-up for pleural effusion. [...] referred for pleurodesis to thoracic surgery in [facility], which he underwent inJune 2023. Though no pleural fluid analysis done, but pleural biopsy showed pleuritis. Post pleurodesis, he continued to have significant drainage, tunneled pleural catheter was placed. He was then hospitalized ( abdominal bloating ) -in [facility], and responded well to diuresis. He has [...] other day) -Rheumatologic assessment done, workup negative, economic adviser has no evidence of any autoimmune disease -Off prednisone for the last 5 months -Off Plaquenil for the past 3 weeks -On diuretics, now on torsemide Interestingly, on further discussion, mostly with economic adviser, we have uncovered that he has been [...] Current Outpatient Medications Medication Sig Dispense Refill drrktd-drgttpxf-beattne (CREON) 36,000-114,000- 180,000 unit delayed release capsule Take 2 capsules by mouth three times a day with meals. 200 capsule 1 potassium chloride ER (KLOR-CON M20) 20 mEq tablet Take 2 tablets by mouth two times a day. 360 tablet 0 torsemide (DEMADEX) 100 mg tablet Take 1 tablet by mouth once daily. 90 tablet 0 calcium khh-dss-C1-Zn-helicopter specialist-kian 250 mg-40 mg- 125 unit-3.75mg tab Take by mouth. budesonide, enteric coated (ENTOCORT EC) 3 mg 24 hr capsule Take 3 capsules by mouth once daily for60 days, THEN 2 capsules once daily for [...] as directed. Prednisone 10 mg 2 tabs tidx 5 days,2 tabs bid x 5 days,3 [...] 0.5 04/20/2024 Abs Neut 5.91 04/20/2024 Abs Reynolds 1.03 04/20/2024 Abs Eosin <0.03 04/20/2024 Abs [...] Pulmonology. Pulmonary, Allergy & Critical Care Medicine [facility] Work Phone: 1(994) 447-380801-06-2025 History and physical note* Triston Riggs MD - 06/22/2024 9:00 AM EST Images from the original note were not included. [facility] Consultation CC: Persistent RIGHT pleural effusion Sav Raymundo is a 74 year old male sent by Dr. STEPHANE Cesar MD for evaluation of persistent RIGHT pleural effusion. My final recommendations will be communicated to the requesting health care provider by way of the shared medical record for internal providers or letter via the [employer] for external providers. Assessment and [...] did he have some sense of limitation. 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 Excerpt from Dr Cesar 05/20/2024. Mr Raymundo is a 71 y/o, from the [facility], here for follow-up for pleural effusion. [...] referred for pleurodesis to thoracic surgery in [facility], which he underwent inJune 2023. Though no pleural fluid analysis done, but pleural biopsy showed pleuritis. Post pleurodesis, he continued to have significant drainage, tunneled pleural catheter was placed. He was then hospitalized ( abdominal bloating ) -in [facility], and responded well to diuresis. He has [...] other day) -Rheumatologic assessment done, workup negative, economic adviser has no evidence of any autoimmune disease -Off prednisone for the last 5 months -Off Plaquenil for the past 3 weeks -On diuretics, now on torsemide Interestingly, on further discussion, mostly with economic adviser, we have uncovered that he has been [...] Current Outpatient Medications Medication Sig Dispense Refill bkgqhc-fpitpbpa-kdiggvh (CREON) 36,000-114,000- 180,000 unit delayed release capsule Take 2 capsules by mouth three times a day with meals. 200 capsule 1 potassium chloride ER (KLOR-CON M20) 20 mEq tablet Take 2 tablets by mouth two times a day. 360 tablet 0 torsemide (DEMADEX) 100 mg tablet Take 1 tablet by mouth once daily. 90 tablet 0 calcium erd-rzi-J6-Zn-helicopter specialist-kian 250 mg-40 mg- 125 unit-3.75mg tab Take by mouth. budesonide, enteric coated (ENTOCORT EC) 3 mg 24 hr capsule Take 3 capsules by mouth once daily for60 days, THEN 2 capsules once daily for [...] as directed. Prednisone 10 mg 2 tabs tidx 5 days,2 tabs bid x 5 days,3 [...] 0.5 04/20/2024 Abs Neut 5.91 04/20/2024 Abs Reynolds 1.03 04/20/2024 Abs Eosin <0.03 04/20/2024 Abs [...] Pulmonology. Pulmonary, Allergy & Critical Care Medicine [facility] documented in this encounterSumma Health Wad[facility]12-27-2024 History of Present illness Narrative* Jose Antonio Hopper MD - 06/12/2024 2:57 PM EST PROGRESS NOTES Patient Name: Sav Raymundo SERVICE [...] 2 in PM) 120 tablet 2 calcium idp-tcb-O9-Zn-helicopter specialist-kian 250 mg-40 mg- 125 unit-3.75mg tab Take by mouth. torsemide (DEMADEX) 100 mg tablet Take 1 tablet by mouth once daily. 90 tablet 0 budesonide, enteric coated (ENTOCORT EC) 3 mg 24 hr capsule Take 3 capsules by mouth once daily for60 days, THEN 2 capsules once daily for [...] as directed. Prednisone 10 mg 2 tabs tidx 5 days,2 tabs bid x 5 days,3 tabs daily x 5 days,2 tabs daily x 5 days,1 tab daily x 5 days,1/2 daily x 4 days and stip 82 tablet 0 allopurinol (ZYLOPRIM) 300 mg tablet Take 300 mg by mouth once daily. atorvastatin (LIPITOR) 10 mg tablet Take 1 tablet by mouth once daily. ohifrk-gfxfsoyc-ijvjzcj (CREON) 36,000-114,000- 180,000 unit delayed release capsule [...] (1.83m) Wt 189 lb (85.7kg) SpO2 98% BMI25.63 kg/(m^2). General appearance: Normal, healthy, cooperative, in [...] diaphragmatic excursion. Lungs clear to auscultation. Heart: [facility] normal. Precordium quiet. RRR. Normal HS with [...] UNIT-180,000 UNIT CAPSULE,DELAYED RELEASE start Jose Antonio Hopper MD SIGNATURE: Jose Antonio Hopper MD DATE: June 12, 2024 TIME: 3:04 PM documented in this encounterSumma Health Wadsworth - [facility]12-18-2024 NoteMercer County [facility]12-18-2024 History of Present illness Narrative* Steffen Mccarty MD - 06/03/2024 10:23 AM EST Images from the original note were not included. Rheumatology FOLLOW UP VISIT Date of Service: 06/01/2024 Patient: Sav Raymundo Medical Record: [id number] Primary Care Physician: Yuli Mariscal DO Last Rheumatology visit: 06/01/2024 (with Steffen Villa) History of Present Illness Sav Raymundo is [...] except for bilateral knee replacements and [place] fracture s/p surgery who presents for evaluation [...] underwent on 11/20/2023 R VATS with R pbx mechanic and doxyxyclyine pleurodesis, pleural biopsy. Biopsy notable [...] consulted. GREY by EIA negative, CCP Ab andRF negative. Started still on HCQ trial 400mg daily On Jan 2024, provided with prednisone trial by internal medicine doctor 60mg X 5 days > 40mg X 5days > 30mg X 5 days > 20mg [...] disorder at this point. Underwent repeated pleural fluidtesting (in process) Stopped HCQ and OFF prednisone [...] population = 50. Five points is a clinicallymeaningful difference.) Physical T-Score 44.9 Mental T-Score 43.5 [...] in Am and 2 in PM) calcium niw-kmy-Q9-Zn-helicopter specialist-kian 250 mg-40 mg- 125 unit-3.75mg tab Take by mouth. torsemide (DEMADEX) 100 mg tablet Take 1 tablet by mouth once daily. budesonide, enteric coated (ENTOCORT EC) 3 mg 24 hr capsule Take 3 capsules by mouth once daily for60 days, THEN 2 capsules once daily for [...] as directed. Prednisone 10 mg 2 tabs tidx 5 days,2 tabs bid x 5 days,3 [...] false negative results. In case of a contactinvestigation, please repeat 8-12 weeks after a known exposure. Infection with M. tuberculosis complex is unlikely. If latent tuberculosis infection is highly suspected, a negative result does not rule out the infection. Specimens from immunocompromised patients and those <5 years of age may show false negative results. In case of a contact investigation, please repeat 8-12 weeks after a knownexposure. TB Result Negative Negative Latest Ref Rng & Units 11/12/2023 03/30/2024 Antibodies GREY Negative Negative Crithidia lucillae Negative Negative Anti-Sm <1.0 AI <0.2 Sm Antibody Negative Negative Ribosomal BOXING AND PRESSING SUPERVISOR Ab <1.0 AI <0.2 Ribosomal BOXING AND PRESSING SUPERVISOR Qualitative Negative Negative Chromatin Ab <1.0 AI <0.2 Chromatin Ab Qual Negative Negative SSA Antibody Qual Negative Negative Anti-SSA <1.0 AI <0.2 Anti-SSB <1.0 AI <0.2 BOXING AND PRESSING SUPERVISOR Antibody QUAL Negative Negative Scleroderma Ab Qual [...] on 06/01/2024 Name Date COVID-19 vaccine, monovalent ([email or web address]) 09/13/2020, 08/22/2020, 08/15/2020 influenza (aIIV3) vaccine 05/09/2020 [...] Full ROM in flexion and extension. Full enterprise integration architect strength. No swelling or synovitis along the [...] effusion. No tenderness to palpation along the jointline, medial/lateral malleolus, ATFL, PTFL, CFL, or Achilles Tendon. Feet: Full ROM in toe flexion/extension. No effusion. No tenderness to palpation. No evidence of MTP swelling. There is currently no information documented on the [facility]. Go to the Rheumatology activity andcomplete the [facility] exam. Joint Exam 06/01/2024 No [...] recurrent R >L pleural effusion which has beenmoderate/large s/p VATS/pleurodesis/pleural biopsy showing acute organizing pleuritis [...] which included preparing to see the patient, kmhy-rg-mpcp patient care, completing clinical documentation, obtaining and/or reviewing separately obtained history, performing a medically appropriate examination, and counseling and educating the patient/family/caregiver. Steffen Villa MD Rheumatology Date: June 03, 2024 Time: 10:43 AM documented in this encounterSumma Health Wadsworth - [facility]12-10-2024 History of Present illness Narrative* Sue Murillo MD - 05/26/2024 4:30 PM EST Follow Up Visit SUBJECTIVE 74 year old [...] population = 50. Five points is a clinicallymeaningful difference.) Physical T-Score 44.9 Mental T-Score 43.5 10/23/2023 PROMIS Global Health Scale Physical Health Percentile 31 Mental Health Percentile 26 Current Outpatient Medications Medication Sig Dispense Refill potassium chloride ER (KLOR-CON M20) 20 mEq tablet Take 2 tablets by mouth two times a day. 120 tablet 2 calcium cmd-pkk-J4-Zn-helicopter specialist-kian 250 mg-40 mg- 125 unit-3.75mg tab Take by mouth. torsemide (DEMADEX) 100 mg tablet Take 1 tablet by mouth once daily. 90 tablet 0 budesonide, enteric coated (ENTOCORT EC) 3 mg 24 hr capsule Take 3 capsules by mouth once daily for60 days, THEN 2 capsules once daily for [...] as directed. Prednisone 10 mg 2 tabs tidx 5 days,2 tabs bid x 5 days,3 [...] 26, 2024 9:42 AM documented in this encounterSumma Health Wadsworth - [facility]12-10-2024 NoteMercer [facility]12-09-2024 Telephone encounter Note* Telephone Encounter - Marcy Longoria - 05/25/2024 12:15 PM EST Spoke with spouse to schedule appt 06/22 [facility]12-09-2024 Miscellaneous Notes* Telephone Encounter - Marcy Longoraipepe - 05/25/2024 12:15 PM EST Spoke with spouse to schedule appt 06/22 documented in this encounterSumma Health Wadsworth - Rittman [facility] Center12-02-2024 Instructions* Patient Instructions* Louise Cesar MD - 05/18/2024 11:40 AM EST There [...] puffs 2 times a day, but use asneeded (2-5 times a day), wash/rinse/gargle mouth/throat after use. Next steps may be bronchoscopy. Groundglass opacities (GGO), seems minor, small, posterior upper lobe - CT scan follow up Pleural effusion - we will check tests, follow up CT scan and see Interventional Pulmonary in [facility] [place] or [place]. Pleuroscopy could be considered but difficult after Angelique chest surgery (VATS pleurodesis) Next steps to do - see Interventional Pulmonary Dr. Riggs/Vicki with CT scan - stay tuned. Please check in if you don't hear anything in the next 2-[address] Reinaldo Cesar MD Pulmonary and Critical Care Medicine [facility] documented in this encounterSumma Health Wadsworth - [facility]itt[facility] Center12-02-2024 History of Present illness Narrative* Vijay Cameron, RT(R) - 05/18/2024 11:00 AM EST Radiology Service Progress Note PATIENT NAME: Sav [...] PATIENT PRESENTS WITH AN IMPLANTABLE OR ATTACHED TELEVISION REPORTER: No RADIOLOGY DEPARTMENT: General X-ray: Exam(s) Completed: Chest X-Ray PERIPHERAL IV DATA: Not applicable SIGNED BY: RT Rosaline(R) May 18, 2024 10:54 AM documented in this encounterSumma Health Wadsworth - [facility]ittman [facility] Center12-02-2024 [facility]Mer[facility]12-02-2024 NoteMercer [facility]12-02-2024 History of Present illness Narrative* Louise Cesar MD - 05/18/2024 10:55 AM EST Images from the original note were not included. INTERVAL HPI: Willie is a gentleman in his 70s, from the [facility], here for follow-up for pleural effusion. [...] referred for pleurodesis to thoracic surgery in [facility], which he underwent inJune 2023. Though no pleural fluid analysis done, but pleural biopsy showed pleuritis. Post pleurodesis, he continued to have significant drainage, tunneled pleural catheter was placed. He was then hospitalized ( abdominal bloating ) -in [facility], and responded well to diuresis. He has [...] other day) -Rheumatologic assessment done, workup negative, economic adviser has no evidence of any autoimmune disease -Off prednisone for the last 5 months -Off Plaquenil for the past 3 weeks -On diuretics, now on torsemide Interestingly, on further discussion, mostly with economic adviser, we have uncovered that he has been [...] pleural effusion s/p R-VATS pleural biopsy, right pbx mechanic and doxycycline pleurodesis, right Pleurx catheter insertion, on 12/10/2023. Mr. Kumar presents with an interesting history. He is a semiretired gentleman from the [facility], with virtually no past medical history, very active, started having issues since last year in March 2023. He presented with a bout of coughing, was treated by his primary care physician with a Z-Tanner with little effect. In the next few months his cough got worse, but with no significant dyspnea, and the cough was dry.He was treated with prednisone with excellent effect. In June 2023-he was given prednisone again, and he went on a cruise, and once the prednisone wasfinished his cough came back. Throughout the next few months he has been on prednisone off-and-on, and every time he has been on prednisone the cough has completely resolved. Due to his persistent coughing bouts, an x-ray was obtained, which showed right- sided pleural effusion, and he was referred to a local director of environmental services. He underwent thoracentesis several times, each time pleural fluid analysis showed exudative fluid. CT scan was obtained locally which did not reveal much except pleural effusion. CT scan also shows pericardial effusion. He was then referred by his local director of environmental services to [facility] for a pleurodesis. In November 2023, he underwent VATS pleurodesis (mechanical and doxycycline), with pleural biopsy, and the Pleurx catheter was also placed. Analysis of the pleural fluid and biopsies of the pleura showed acute and chronic pleuritis with organization, but no malignancy. We do not have pleural fluid chemical or hematological analysis done in [facility], but cytology was negative for malignant cells. He was discharged with Pleurx catheter, and and has been draining pleural fluid about 500 to 800 mLevery other day. And his dry cough has also been persistent. In December 2023, he was sent to [facility] after seeing thoracic surgery ADRIENNE for anasarca, and was admitted. His abdomen and subcutaneous tissues especially in his legs were swollen, no ascites found,but significant skin edema including blisters were seen. He improved with Lasix drip, was evaluatedby rheumatology, and so far his serologies have been negative, but he has been placed on a dose of hydroxychloroquine. So far the effect of hydroxychloroquine has not been much. He is scheduled to see rheumatology in [facility] in the next 2 weeks. Of note he has been on prednisone on and off for the whole month of January, and the effect has beennoticeable is not dramatic -cough completely resolves, pleural fluid drainage decreases to about 100 mL per session. But interestingly, he reports no symptoms that can be attributed to connective tissue disease. PULM ROS: Negative for symptoms of sarcoidosis - lymphadenopathy; eye redness, floatters, blurry vision; SOB,cough, palpitations; syncope, lightheadedness; skin rash; tingling, numbness [...] chest pain, palpitations, PND, orthopnea but has significantlower extremity edema. From a rheumatologic standpoint,-negative review [...] standpoint, there is no occupational, medication or environmentalexposures. There is no family history for interstitial lung disease. From a pulmonary hypertension standpoint, no denies a history of congenital heart disease, lung disease, heart disease, sleep-disordered breathing, connective tissue disease, liver disease, HIV, dietdrug use, illicit drug use, hemoglobinopathy, splenectomy, sarcoidosis, [...] overload/CHF?, chronic cough - local PCP, has [facility] PCP, Dr. 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 Outpatient Medications: calcium rqq-onw-B5-Zn-helicopter specialist-kian 250 mg-40 mg- 125 unit-3.75mg tab Take by mouth. potassium chloride ER (KLOR-CON) 20 mEq tablet Take 20 mEq by mouth three times a day. torsemide (DEMADEX) 100 mg tablet Take 1 tablet by mouth once daily. budesonide, enteric coated (ENTOCORT EC) 3 mg 24 hr capsule Take 3 capsules by mouth once daily for60 days, THEN 2 capsules once daily for [...] as directed. Prednisone 10 mg 2 tabs tidx 5 days,2 tabs bid x 5 days,3 [...] personally reviewed by me Data Reviewed from [facility] (in addition to that noted in HPI, and Past histories above): CMP, CBC Testing data, personally reviewed and interpreted by me: PFT, Imaging, Labs, CVS data. Assessment: Sav Raymundo is a 74 year old male presents for evaluation/follow-up of: for chronic cough and recurrent right-sided pleural effusion s/p R-VATS pleural biopsy, right pbx mechanic and doxycycline pleurodesis, right Pleurx catheter insertion, [...] test neg, EF >50%, Repeat echo in [facility] March 26, 2024 - normal Problems: (J90) Pleural effusion (primary encounter diagnosis) (R05.3) Chronic cough (R91.1) Lung nodule (K52.832) Lymphocytic colitis Vaccines: current except flu shot, planning to get it PMH:pleural effusion, fluid overload/CHF, chronic cough - local PCP, has [facility] PCP, Dr. Flood (Thoracic), scheduled to see economic adviser in [facility] Social:Lives near [place], in own house, with , no pets, adult kids, just 1 daughter who lives in [place], 2 grand-kids, no lung disease in the [...] puffs 2 times a day, but use asneeded (2-5 times a day), wash/rinse/gargle mouth/throat after use. Next steps may be bronchoscopy. Groundglass opacities (GGO), seems minor, small, posterior upper lobe - CT scan follow up Pleural effusion - we will check tests, follow up CT scan and see Interventional Pulmonary in [facility] [place] or [place]. Pleuroscopy could be considered but difficult after November chest surgery (VATS pleurodesis) Sav Raymundo understands the plan and discussion and is comfortable with it. I spent a total of 45 minutes on the date of the service which included preparing to see the patient, [id number] patient care, completing clinical documentation, obtaining and/or reviewing separately obtained history, performing a medically appropriate examination, counseling and educating the pat ient/family/caregiver, ordering medications, tests, or procedures, independently interpreting results (not separately reported), and care coordination (not separately reported). Louise Cesar MD documented in this encounterSumma Health Wad[facility]11-27-[facility]24 History of Present illness Narrative* Jose Antonio Hopper MD - 05/13/2024 11:11 AM EST PROGRESS NOTES Patient Name: Sav Raymundo SERVICE [...] Take 3 capsules by mouth once daily for60 days, THEN 2 capsules once daily for 15 days, THEN 1 capsule once daily for 7 days. [address] (PROTONIX) 40 mg tablet Take 1 tablet by mouth two times a day. 180 tablet 0 sucralfate (CARAFATE) 1 gram tablet Take 1 tablet by mouth two times a day. 60 tablet 0 YKAPMAJ-OBJCPRBBJ-XJZM ORAL Take by mouth. iv contrast (will [...] Once exam is complete flush line and de-accessaccording to line specific nursing protocol in the CT contrast administration guidelines link. 1 Each 0 diclofenac (VOLTAREN) 1 % topical gel amoxicillin (AMOXIL) 500 mg capsule predniSONE (DELTASONE) 10 mg tablet Take 1 tablet by mouth as directed. Prednisone 10 mg 2 tabs tidx 5 days,2 tabs bid x 5 days,3 [...] 1 tablet by mouth once daily. calcium lxt-riq-D5-Zn-helicopter specialist-kian 250 mg-40 mg- 125 unit-3.75mg tab Take [...] blood in stools or black stools, and changein stool. GENITOURINARY: Negative for dysuria, frequency and [...] (1.83m) Wt 209 lb (94.8kg) SpO2 98% BMI28.34 kg/(m^2). General appearance: Overweight, healthy, cooperative, in [...] diaphragmatic excursion. Lungs clear to auscultation. Heart: [place] normal. Precordium quiet. RRR. Normal HS with [...] - Recommend regular aerobic exercise Jose Antonio Hopper MD SIGNATURE: Jose Antonio Hopper MD DATE: May 13, 2024 TIME: 11:13 AM documented in this encounterSumma Health Wadsworth [facility]11-21-2024 Telephone encounter Note * Telephone Encounter - Briteny Hsu RN - 05/07/2024 7:29 PM EST . [facility]11-21-2024 Miscellaneous Notes* Telephone Encounter - Britney Hsu RN - 05/07/2024 7:29 PM EST . documented in this encounterSumma Health Wadsworth [facility]itt[facility]11-12-2024 History and physical note * Vic Ponce MD - 04/28/2024 12:30 PM EST HISTORY AND PHYSICAL Sav Raymundo, 74 year [...] Chris's Esophagus, image tube placement or cryo therapytreatment based on clinical findings. BASELINE BEHAVIOR: Calm [...] MAC Additional Comments: None Vic Ponce MD [facility]11-12-2024 History and physical note* Vic Ponce MD - 04/28/2024 12:30 PM EST HISTORY AND PHYSICAL Sav Raymundo, 74 year [...] Chris's Esophagus, image tube placement or cryo therapytreatment based on clinical findings. BASELINE BEHAVIOR: Calm [...] MAC Additional Comments: None Vic Ponce MD documented in this encounterSumma Health Wadsworth - [facility]itt[facility] Center11-12-2024 Nurse Note* Jahaira Hood RN - 04/28/2024 12:28 PM EST PATIENT EDUCATION TOPIC: PROCEDURE / SURGERY: Post [...] PROVIDED TO PATIENT: None REFERRAL (RECOMMENDATION): None [facility]11-12-2024 Nurse Note* Jahaira Hood RN - 04/28/2024 12:28 PM EST PATIENT EDUCATION TOPIC: PROCEDURE / SURGERY: Post [...] PROVIDED TO PATIENT: None REFERRAL (RECOMMENDATION): None * Maureen Laughlin RN - 04/28/2024 11:13 AM EST PATIENT EDUCATION TOPIC: PROCEDURE / SURGERY: Pre [...] REFERRAL (RECOMMENDATION): None Electronically Signed By: Maureen aLughlin documented in this encounterSumma Health Wadsworth - [facility]itt[facility] Center11-12-2024 Nurse Note* Maureen Laughlin RN - 04/28/2024 11:13 AM EST PATIENT EDUCATION TOPIC: PROCEDURE / SURGERY: Pre [...] (RECOMMENDATION): None Electronically Signed By: Maureen Laughlin [facility]11-06-2024 History of Present illness Narrative* Soni Robbins RN - 04/22/2024 11:30 AM EST Radiology Service Progress Note DATE OF SERVICE: [...] wrist with a Angio cath: 22 gauge. Donavan Saline lock was inserted per protocol. IV started on 5th IV attempt due to difficulty flushing IVwith blood return. 2 attempts by this RN, 2 attempts by Tonya Wagner dialysis technician. Patient requests to try again to have test completed due to long drive to facility. IV started by this RN. IV SITE APPEARANCE: Clean,Dry and Intact SIGNATURE: Soni Robbins RN PATIENT NAME: Sav Raymundo DATE: April 22, 2024 TIME: 10:33 AM * Judy Wagner RT(R) - 04/22/2024 11:30 AM EST Radiology Service Progress Note PATIENT NAME: Sav [...] PATIENT PRESENTS WITH AN IMPLANTABLE OR ATTACHED TELEVISION REPORTER: No RADIOLOGY DEPARTMENT: CT; Exam(s) Completed: Enterography PERIPHERAL IV DATA: Not applicable SIGNED BY: RT Tyree(R) April 22, 2024 11:55 AM documented in this encounterSumma Health Wadsworth - [facility]itt[facility] Center11-06-2024 [facility]Mer[facility]11-06-2024 NoteMercer County Community Hospital11-05-2024 NoteCALPROTECTIN, FECAL INTERPBorderline elevated. Re-evaluation in 4-6 weeks is recommended if clinically indicated.(A)Kjmujj3904/21/2024 9:04 PM ESTUniversity Hospitals Ahuja Medical CenterComment on above:Interpretation: <50.0 ug/g: Normal 50.0 ug/g - 120.0 ug/g: Borderline elevated. Re-evaluation in 4-6 weeks is recommended if clinically indicated. >120.0 ug/g: Elevated 04-20-2024 NoteBorderline elevated. Re-evaluation in 4-6 weeks is recommended if clinically indicated.[facility] Community HospitalCommymichigan medical center alma on above:Order Comment: Specimen Type: STOOL SPECIMENOrdering Facility: [facility] Address:[address] [place] [address] [place], [place] [address]Vrdbcm Comment: Interpretation:<50.0 ug/g: Vjibyo04.0 ug/g - 120.0 ug/g: Borderline elevated. Re-evaluation in 4-6 weeks is recommended if clinically indicated.>120.0 ug/g: ElevatedPerformed By: #### [id number], [id number], PANCEF ####[facility] LABCLIA [id number] [facility] [place] [address] [facility] 04-20-2024 Instructions* Patient Instructions* Sue Murillo MD - 04/20/2024 12:27 PM [...] (i.e. drive a car, bicycle, etc) or [facility] ALONE. It is not safe [...] with insulin, diabetic pills, or other injectable medicationsdo not take your REGULAR dose after midnight on the day of your procedure. If you are taking any other types of insulin such as Lantus, Humalog, NPH (long- acting insulin), or70/30 insulin, take half your normal dose the [...] medications (including aspirin, antibiotics, water pills / diureticslike Lasix or Metolozone, blood pressure meds, etc.) [...] prep in two doses. Split dosing helps cleanyour colon better and makes it less likely that your procedure will be canceled. You will need to purchase the following (no prescriptions are needed): 64 ounces Gatorade, Propel, Crystal Lite or other noncarbonated clear liquid sports drink (NOT red,orange, or purple). Diabetic patients buy sugar-free, e.g. [...] am on dialysis? A: Please consult your pediatric cardiologist prior to scheduling to get instructions pertinent to you. In general, dialysis patients take the Diversionly bowel prep and have the procedure same [...] to inadequate prep quality. documented in this encounterSumma Health Wadsworth [facility] Center11-04-2024 NoteMercer County Community Hospital11-04-2024 History of Present illness Narrative* Sue Murillo MD - 04/20/2024 11:46 AM EST NAME: Sav Raymundo [facility] NO: [id number] REASON FOR VISIT Sav Raymundo is a 74 year old male who is scheduled for a consult at the request of Steffen Villa. Patient presents with: Diarrhea PRESENTING COMPLAINT:Establish care [...] Current Outpatient Medications Medication Sig Dispense Refill [id number]-[id number]-UEKE ORAL Take by mouth. iv contrast (will [...] Once exam is complete flush line and de-accessaccording to line specific nursing protocol in the [...] as directed. Prednisone 10 mg 2 tabs tidx 5 days,2 tabs bid x 5 days,3 [...] 1 tablet by mouth two times a day.(Patient not taking: Reported on 03/17/2024) 60 tablet 0 calcium carbonate (OS-ADRIANNE 500) 500 mg calcium (1,250 mg) tablet Take 1 tablet by mouth two times a day. (Patient not taking: Reported on 03/17/2024) 180 tablet 0 ipratropium-albuterol (DUONEB) 0.5 mg-3 mg(2.5 mg base)/3 mL nebu Inhale 3 mL as instructed every 6hours as needed for wheezing/shortness of breath. (Patient [...] 20, 2024 11:46 AM documented in this encounterSumma Health Wadsworth - [facility]ittman [facility] Center10-15-2024 NoteMercer County Community Hospital10-15-2024 History of Present illness Narrative* Steffen Mccarty MD - 03/31/2024 4:33 PM EDT Images from the original note were not included. Rheumatology CONSULTATION Date of Service: 03/30/2024 Patient: Sav Raymundo Medical Record: [id number] Primary Care Physician: Yuli Mariscal DO Last Rheumatology visit: 03/30/2024 (with Steffen Villa) Referring Provider: Tita Landry [address] [place] [id number] Sav Raymundo is here today at request of Tita Haywood, LETICIA.STEAM TUNNEL FEEDER specifically for consultation of my opinion in regards to the chief complaint listed below. Correspondence will be sharedtoday via the [employer] electronic health record or through regular mail, where applicable. History of Present Illness Sav Raymundo is a 74 year old White male who presents on 03/30/2024 for an in-person visit for evaluation of recurrent pleural effusion . Heis currently taking hydroxychloroquine sulfate, prednisone. Sav is both RF - 9 (12/21/2023) and CCP - 13.5 (12/21/2023) negative. His most recent GREY was negative (03/30/2024). HISTORY OF PRESENT ILLNESS 74 yo M no prior PMHx except for bilateral knee replacements and [place] fracture s/p surgery who presents for evaluation [...] for malignancy) Then decided to come to [facility] for second opinion. Saw Thoracic surgery first and underwent on 11/20/2023 R VATS with R pbx mechanic and doxyxyclyine pleurodesis, pleural biopsy. Biopsy notable [...] consulted. GREY by EIA negative, CCP Ab andRF negative. Started still on HCQ trial 400mg daily On Jan 2024, provided with prednisone trial by internal medicine doctor 60mg X 5 days > 40mg X 5days > 30mg X 5 days > 20mg [...] population = 50. Five points is a clinicallymeaningful difference.) Physical T-Score 44.9 Mental T-Score 43.5 [...] Current Medications Current Outpatient Medications Medication Sig [id number]-UWKNCAIAT-MGWH ORAL Take by mouth. iv contrast (will [...] Once exam is complete flush line and de-accessaccording to line specific nursing protocol in the [...] as directed. Prednisone 10 mg 2 tabs tidx 5 days,2 tabs bid x 5 days,3 [...] 1 tablet by mouth two times a day.(Patient not taking: Reported on 03/17/2024) calcium carbonate (OS-ADRIANNE 500) 500 mg calcium (1,250 mg) tablet Take 1 tablet by mouth two times a day. (Patient not taking: Reported on 03/17/2024) ipratropium-albuterol (DUONEB) 0.5 mg-3 mg(2.5 mg base)/3 mL nebu Inhale 3 mL as instructed every 6hours as needed for wheezing/shortness of breath. (Patient [...] false negative results. In case of a contactinvestigation, please repeat 8-12 weeks after a known exposure. TB Result Negative Latest Ref Rng & Units 11/12/2023 03/30/2024 Antibodies GREY Negative Negative Crithidia lucillae Negative Negative Anti-Sm <1.0 AI <0.2 Sm Antibody Negative Negative Ribosomal BOXING AND PRESSING SUPERVISOR Ab <1.0 AI <0.2 Ribosomal BOXING AND PRESSING SUPERVISOR Qualitative Negative Negative Chromatin Ab <1.0 AI <0.2 Chromatin Ab Qual Negative Negative SSA Antibody Qual Negative Negative Anti-SSA <1.0 AI <0.2 Anti-SSB <1.0 AI <0.2 BOXING AND PRESSING SUPERVISOR Antibody QUAL Negative Negative Scleroderma Ab Qual [...] on 03/30/2024 Name Date COVID-19 vaccine, monovalent ([email or web address]) 09/13/2020, 08/22/2020, 08/15/2020 influenza (aIIV3) vaccine 05/09/2020 [...] 12/2023 with ?small pelvic/abdominal ascites. Responsive to sporadiccourses of prednisone. In this scenario, question raised [...] which included preparing to see the patient, vznp-un-hewn patient care, completing clinical documentation, obtaining and/or reviewing separately obtained history, performing a medically appropriate examination, and counseling and educating the patient/family/caregiver. Steffen Villa MD Rheumatology Date: March 31, 2024 Time: 4:33 PM documented in this encounterSumma Health Wadsworth - [facility]itt[facility] Center10-01-2024 History of Present illness Narrative* Juan Son, RT(R) - 03/17/2024 4:30 PM EDT Radiology Service Progress Note DATE OF SERVICE: [...] PATIENT PRESENTS WITH AN IMPLANTABLE OR ATTACHED TELEVISION REPORTER: No ALLERGIES: Reviewed and unchanged CONTRAST ALLERGY: [...] e.g. those with acute kidney injury, the eGFRmay not accurately reflect actual GFR. P.O.C.T. RESULTS: N/A March 17, 2024 TREATMENT: N/A PERIPHERAL IV DATA: Ambulatory: A peripheral IV was started in the Right antecubital site with a Angio cath: 22 gauge. RADIOLOGY DEPARTMENT: CT; Exam(s) Completed: Chest SIGNATURE: IMAN Jerez) PATIENT NAME: Sav Raymundo DATE: March 17, 2024 TIME: 4:04 PM documented in this encounterSumma Health Wadsworth - [facility]ittman [facility] Center10-01-2024 NoteHNO ID: [id number] Author: JUAN SON RT(R) Service: Radiology Author Type: Cytology Manager Type: Progress Notes Filed: 03/17/2024 16:04 Note [...] PATIENT PRESENTS WITH AN IMPLANTABLE OR ATTACHED TELEVISION REPORTER: No ALLERGIES: Reviewed and unchanged CONTRAST ALLERGY: [...] Raymundo DATE: March 17, 2024 TIME: 4:04 [facility] [id number] History of Present illness Narrative* Ruma Oshea PA-C - 03/17/2024 1:30 PM EDT Images from the original note were not included. [facility] - OUTPATIENT THORACIC SURGERY CLINIC NOTE PT NAME: Sav Raymundo [facility] NO: [id number] THORACIC SURGEON: Ronaldo Flood M.D. DATE OF SERVICE: 03/17/2024 PRINCIPAL DX: Pleural Effusion SURGICAL HX 11/20/2023: R VATS pleural biopsy, right pbx mechanic and doxycycline pleurodesis, right Pleurx catheter insertion, right 20Fr chest tube insertion Surgical Pathology: FINAL DIAGNOSIS A. Right pleura, biopsy: - Chronic pleuritis with mesothelial hyperplasia (see comment). B. Right pleura, biopsy: - Acute organizing and chronic pleuritis (see comment). DE/ 11/22/2023 Diagnosis Comment A. The biopsy contains pleural tissue with chronic inflammation and focal reactive mesothelial hyperplasia. An immunohistochemical stain for BAP 1 shows retained nuclear expression of the mesothelialcells. B. The pleura shows areas with extensive [...] CT. On 11/20/2023, patient underwent R VATS pleuralbiopsy, right pbx mechanic and doxycycline pleurodesis, right Pleurx catheter insertion, right 20Fr chest tube insertion. He was hospitalized 12/20/23 for anasarca, possible autoimmune disease, recurrent pleural effusion. Imaging did not reveal any acute findings. Patient was admitted to [facility] and started on lasix drip, improving anasarca and pleural effusion. Pleurx catheter was drained daily with significantly decreasing output [phone]. He was worked up for an autoimmune disease as well. Hewas discharged on an increased dose of lasix (20mg > 80mg) and started on Plaquenil. PHYSICAL EXAM: VITAL SIGNS: BP 132/78 (BP Site: Left Arm, BP Position: Sitting, BP Cuff Size: Small Adult) Pulse88 Temp 36.3 C (97.3 F) (Temporal) Resp [...] presents to clinic today for postoperative visit. [facility] RN called in 03/03 reporting increase in output from pleurX. Drainage schedule at that time was switchde to 3x weekly until outputslows down. Prednisone course finished, plaquenil increased to BID. Patient with increase in weightand 2+ pitting BLE. Seen by pulmonary today, follow up with rheum 04/13. Patient notes today that his drainage was significantly decreasing while he was on the steroids. Italso helped with his cough. Now his cough is back and he coughs to the point of dry heaving. Outputhas been around 500-700cc, draining every 3 days. He currently denies any chest pain or shortness of breath. IMPRESSION: 73 year old male with pmh significant for recurrent right pleural effusion s/p R VATS pleural biopsy, right pbx mechanic and doxycycline pleurodesis, right Pleurx catheter insertion, right 20Fr chest tube insertion on 11/20/[address] Flood. He was hospitalized 12/20/23 for anasarca, possible autoimmune disease, and recurrent pleural effusion. Imaging did not reveal any acute findings. Patient was admitted to [facility] and started on lasix drip, with improving anasarca and pleural effusion. Pleurx catheter was drained daily with significantly decreasing output [phone]. He was worked up for an autoimmune disease as well. He was discharged on an increased dose of lasix (20mg > 80mg) and started on Plaquenil. PLAN: - continue draining pleurx every 3 days - call our office if any new or worsening symptoms - follow up with economic adviser 04/13 for their recommendations - discussed with patient to reach out to our office with rheum recommendations, as well as if pleurx output has significantly decreased to discuss removing pleurx Ruma Oshea PA-C documented in this encounterSumma Health [facility]10-01-2024 NoteHNO ID: [id number] Author: RUMA OSHEA PA-C Service: ? Author Type: Physician Captain Waiter/Waitress Type: Progress Notes Filed: 03/17/2024 14:26 Note Text: [facility] - OUTPATIENT THORACIC SURGERY CLINIC NOTE PT NAME: [place] Pepe [facility] NO: [id number] THORACIC SURGEON: Ronaldo Flood M.D. DATE OF SERVICE: 03/17/2024 PRINCIPAL DX: Pleural Effusion SURGICAL HX 11/20/2023: R VATS pleural biopsy, right pbx mechanic and doxycycline pleurodesis, right Pleurx catheter insertion, right 20Fr chest tube insertion Surgical Pathology: FINAL DIAGNOSIS A. Right pleura, biopsy: - Chronic pleuritis with mesothelial hyperplasia (see comment). B. Right pleura, biopsy: - Acute organizing and chronic pleuritis (see comment). 11/22/2023 Diagnosis Comment A. The biopsy contains [...] patient underwent R VATS pleural biopsy, right pbx mechanic and doxycycline pleurodesis, right Pleurx catheter insertion, right 20Fr chest tube insertion. He was hospitalized 12/20/23 for anasarca, possible autoimmune disease, recurrent pleural effusion. Imaging did not reveal any acute findings. Patient was admitted to [facility] and started on lasix drip, improving anasarca and pleural effusion. Pleurx catheter was drained daily with significantly decreasing [phone]. He was worked up for an autoimmune [...] presents to clinic today for postoperative visit. [facility] RN called in 03/03 reporting increase in output from pleurX. Drainage schedule at that time was switchde to 3x weekly until output slows down. Prednisone course finished, plaquenil increased to BID. Patient with increase in weight and 2+ pitting BLE. Seen by pulmonary today, follow up with rheum 04/13. Patient notes today (more content not included)...[facility] 03-17-2024 History of Present illness Narrative* Bryn Pride RRT - 03/17/2024 1:29 PM EDT PULM FUNCTION: Provider: Louise Cesar MD DLCO: 1 LV - Box: 1 documented in this encounterSumma Health Wadsworth [facility]10-01-2024 Instructions* Patient Instructions* Louise Cesar MD - 03/17/2024 11:37 AM EDT Seems like a rheumatologic problem, as both cough/fluid gets better with steroids We will get CT chest with contrast, and other breathing tests (DLCO, lung vol), today if possible thoracentesis See Rheumatology as scheduled; we will try to schedule echo on that day - Mar 30 PleurX tube - as per Dr. Flood's team. Return to clinic end April Dr. Reinaldo Cesar MD Pulmonary and Critical Care Medicine [facility] documented in this encounterSumma Health Wadsworth [facility]10-01-2024 NoteHNO ID: [id number] Author: LOUISE CESAR MD Service: ? Author Type: Physician Type: Progress Notes Filed: 03/18/2024 08:55 Note Text: Mr. Raymundo is a 74 year old male who [facility] Respiratory [facility]ood[facility]. Consultation requested by Dr. Hopper and Dr. Ronaldo Flood. My final recommendations/evaluation will be communicated back to the requesting physician by way of shared medical record or letter via [place] mail. This note was partially created using [employer] Voice recognition software and is inherently subject to errors including those of syntax and ?sound-alike? substitutions which may escape proofreading. In such instances, original meaning may be extrapolated by contextual derivation. HPI on March 17, 2024: Sav Raymundo is a gentleman in his 70s, presenting to the pulmonary clinic, for chronic cough and recurrent right-sided pleural effusion s/p R-VATS pleural biopsy, right pbx mechanic and doxycycline pleurodesis, right Pleurx catheter insertion, on 12/10/2023. Mr. Kumar presents with an interesting history. He is a semiretired gentleman from the [facility], with virtually no past medical history, very [...] and he was referred to a local director of environmental services. He underwent thoracentesis several times, each time pleural fluid analysis showed exudative fluid. CT scan was obtained locally which did not reveal much except pleural effusion. CT scan also shows pericardial effusion. He was then referred by his local director of environmental services to [facility] for a pleurodesis. In November 2023, he underwent VATS pleurodesis (mechanical and doxycycline), with pleural biopsy, and the Pleurx catheter was also placed. Analysis of the pleural fluid and biopsies of the pleura showed acute and chronic pleuritis with organization, but no malignancy. We do not have pleural fluid chemical or hematological analysis done in [facility], but cytology was negative for malignant cells. He was discharged with Pleurx catheter, and and has been draining pleural fluid about 500 to 800 mL every other day. And his dry cough has also been persistent. In December 2023, he was sent to [facility] after seeing thoracic surgery ADRIENNE for anasarca, [...] He is scheduled to see rheumatology in [facility] in the next 2 weeks. [...] a history of c (more content not included)...[facility]10-01-2024 History of Present illness Narrative* Louise Cesar MD - 03/17/2024 10:46 AM EDT Images from the original note were not included. Mr. Raymundo is a 74 year old male who [facility]. Consultation requested by Dr. Hopper and Dr. Ronaldo Flood. My final recommendations/evaluation will be communicated back to the requesting physician by way of shared medical record or letter via [place] mail. This note was partially created using [employer] Voice recognition software and is inherently subject to errors including those of syntax and sound-alike substitutions which may escape proofreading.In such instances, original meaning may be extrapolated by contextual derivation. HPI on March 17, 2024: Sav Raymundo is a gentleman in his 70s, presenting to the pulmonary clinic, for chronic cough and recurrent right-sided pleural effusion s/p R-VATS pleural biopsy, right pbx mechanic and doxycycline pleurodesis, right Pleurx catheter insertion, on 12/10/2023. Mr. Kumar presents with an interesting history. He is a semiretired gentleman from the [facility], with virtually no past medical history, very active, started having issues since last year in March 2023. He presented with a bout of coughing, was treated by his primary care physician with a Z-Tanner with little effect. In the next few months his cough got worse, but with no significant dyspnea, and the cough was dry.He was treated with prednisone with excellent effect. In June 2023-he was given prednisone again, and he went on a cruise, and once the prednisone wasfinished his cough came back. Throughout the next few months he has been on prednisone off-and-on, and every time he has been on prednisone the cough has completely resolved. Due to his persistent coughing bouts, an x-ray was obtained, which showed right- sided pleural effusion, and he was referred to a local director of environmental services. He underwent thoracentesis several times, each time pleural fluid analysis showed exudative fluid. CT scan was obtained locally which did not reveal much except pleural effusion. CT scan also shows pericardial effusion. He was then referred by his local director of environmental services to [facility] for a pleurodesis. In November 2023, he underwent VATS pleurodesis (mechanical and doxycycline), with pleural biopsy, and the Pleurx catheter was also placed. Analysis of the pleural fluid and biopsies of the pleura showed acute and chronic pleuritis with organization, but no malignancy. We do not have pleural fluid chemical or hematological analysis done in [facility], but cytology was negative for malignant cells. He was discharged with Pleurx catheter, and and has been draining pleural fluid about 500 to 800 mLevery other day. And his dry cough has also been persistent. In December 2023, he was sent to [facility] after seeing thoracic surgery ADRIENNE for anasarca, and was admitted. His abdomen and subcutaneous tissues especially in his legs were swollen, no ascites found,but significant skin edema including blisters were seen. He improved with Lasix drip, was evaluatedby rheumatology, and so far his serologies have been negative, but he has been placed on a dose of hydroxychloroquine. So far the effect of hydroxychloroquine has not been much. He is scheduled to see rheumatology in [facility] in the next 2 weeks. Of note he has been on prednisone on and off for the whole month of January, and the effect has beennoticeable is not dramatic -cough completely resolves, pleural fluid drainage decreases to about 100 mL per session. But interestingly, he reports no symptoms that can be attributed to connective tissue disease. PULM ROS: Negative for symptoms of sarcoidosis - lymphadenopathy; eye redness, floatters, blurry vision; SOB,cough, palpitations; syncope, lightheadedness; skin rash; tingling, numbness [...] chest pain, palpitations, PND, orthopnea but has significantlower extremity edema. From a rheumatologic standpoint,-negative review [...] standpoint, there is no occupational, medication or environmentalexposures. There is no family history for interstitial lung disease. From a pulmonary hypertension standpoint, no denies a history of congenital heart disease, lung disease, heart disease, sleep-disordered breathing, connective tissue disease, liver disease, HIV, dietdrug use, illicit drug use, hemoglobinopathy, splenectomy, sarcoidosis, [...] overload/CHF?, chronic cough - local PCP, has [facility] PCP, Dr. Flood (Thoracic), scheduled to see economic adviser in [facility] [place] Social:Lives near [place], in own house, with , no pets, adult kids, just 1 daughter who lives in [place], 2 grand-kids, no lung disease in the [...] Onset Heart Father Allergies: Tramadol Outpatient Medications: [id number] ORAL Take by mouth. diclofenac (VOLTAREN) 1 [...] Once exam is complete flush line and de-accessaccording to line specific nursing protocol in the CT contrast administration guidelines link. amoxicillin (AMOXIL) 500 mg capsule magnesium oxide (MAG-OX) 400 mg (241.3 mg magnesium) tablet Take 1 tablet by mouth two times a day.(Patient not taking: Reported on 03/17/2024) predniSONE (DELTASONE) 10 mg tablet Take 1 tablet by mouth as directed. Prednisone 10 mg 2 tabs tidx 5 days,2 tabs bid x 5 days,3 tabs daily x 5 days,2 tabs daily x 5 days,1 tab daily x 5 days,1/2 daily x 4 days and stip (Patient not taking: Reported on 03/17/2024) calcium carbonate (OS-ADRIANNE 500) 500 mg calcium (1,250 mg) tablet Take 1 tablet by mouth two times a day. (Patient not taking: Reported on 03/17/2024) ipratropium-albuterol (DUONEB) 0.5 mg-3 mg(2.5 mg base)/3 mL nebu Inhale 3 mL as instructed every 6hours as needed for wheezing/shortness of breath. (Patient [...] personally reviewed by me Data Reviewed from [facility] (in addition to that noted in HPI, and Past histories above): CMP, CBC Testing data, personally reviewed and interpreted by me: PFT, Imaging, Labs, CVS data. Assessment: Sav Raymundo is a 74 year old male presents for evaluation/follow-up of: for chronic cough and recurrent right-sided pleural effusion s/p R-VATS pleural biopsy, right pbx mechanic and doxycycline pleurodesis, right Pleurx catheter insertion, on 12/10/2023. 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 The [...] test neg, EF >50%, Repeat echo in [facility] pending-scheduled on March 26 Problems: (R05.3) Chronic cough (primary encounter diagnosis) (J90) Pleural effusion (R09.1) Pleuritis (J84.9) Interstitial pulmonary disease (HCC) (I31.39) Pericardial effusion (noninflammatory) (I31.9) Pericarditis, unspecified chronicity, unspecified type Vaccines: current except flu shot PMH:pleural effusion, fluid overload/CHF, chronic cough - local PCP, has [facility] PCP, Dr. Flood (Thoracic), scheduled to see economic adviser in [facility] [place] Social:Lives near [place], in own house, with , no pets, adult kids, just 1 daughter who lives in [place], 2 grand-kids, no lung disease in the [...] 30 PleurX tube - as per Dr. Flood's team. Return to clinic end April Addendum: [...] which included preparing to see the patient, [id number] patient care, completing clinical documentation, obtaining and/or reviewing separately obtained history, performing a medically appropriate examination, counseling and educating the pat ient/family/caregiver, ordering medications, tests, or procedures, independently interpreting results (not separately reported), and care coordination (not separately reported). Louise Cesar MD documented in this encounterSumma Health W[facility]10-01-2024 Nurse Note* Jacqueline García RN - 03/17/2024 10:17 AM EDT Sav Raymundo is a very pleasant 74 year old male who presents today for pleural effusion (November 19), still has chest drainage tube Pleurex tube After surgery, fluid still gathering around right lung. Last seen by Pulmonary Doctor? Dr. Clemente in [facility]. Outside of [facility]. Is Dr. Cesar on Care Team as Wellness Educator? no Meds reviewed - Refills pended?no Since last seen Have you had any resp illnessses, COVID, exacerbations or recent visits to ER?hospital/Urgent-Care? [place] December 19 x 1 week, Vaccines: Immunization History Administered Date(s) Administered COVID-19 original vaccine, age 12+ yr, monovalent (PFIZER-BIONTECH - PURPLE TOP) 08/15/2020 08/22/2020 09/13/2020 05/10/2021 influenza (aIIV3) vaccine, age 65+ yr, trivalent, PF (FLUAD) 05/09/2020 pneumococcal conjugate (PCV13) vaccine, 13 valent (PREVNAR 13) 11/26/2016 pneumococcal polysaccharide (PPV23) vaccine, 23 valent (PNEUMOVAX 23) 02/03/2018 tetanus diphtheria (Td) vaccine, age 7+ yr, 5 Lf tetanus, PF (TENIVAC) 06/04/2018 08/30/2018 zoster (RZV) vaccine, recombinant (SHINGRIX) 08/30/2018 Modified Medical Research [place] Dyspnea Scale (MMRC) I stop for breath after walking about 100 yards or after a few minutes on level ground 3 Patient Entered Questionnaires 10/23/2023 PROMIS Global Health - (T-Scores - the mean of general population = 50. Five points is a clinicallymeaningful difference.) Physical T-Score 44.9 Mental T-Score 43.5 [facility]10-01-2024 Nurse Note* Jacqueline García RN - 03/17/2024 10:17 AM EDT Sav Raymundo is a very pleasant 74 year old male who presents today for pleural effusion (November 19), still has chest drainage tube Pleurex tube After surgery, fluid still gathering around right lung. Last seen by Pulmonary Doctor? Dr. Clemente in [facility]. Outside of [facility]. Is Dr. Cesar on Care Team as Wellness Educator? no Meds reviewed - Refills pended?no Since last seen Have you had any resp illnessses, COVID, exacerbations or recent visits to ER?hospital/Urgent-Care? [place] December 19 x 1 week, Vaccines: Immunization History Administered Date(s) Administered COVID-19 original vaccine, age 12+ yr, monovalent (PFIZER-BIONTECH - PURPLE TOP) 08/15/2020 08/22/2020 09/13/2020 05/10/2021 influenza (aIIV3) vaccine, age 65+ yr, trivalent, PF (FLUAD) 05/09/2020 pneumococcal conjugate (PCV13) vaccine, 13 valent (PREVNAR 13) 11/26/2016 pneumococcal polysaccharide (PPV23) vaccine, 23 valent (PNEUMOVAX 23) 02/03/2018 tetanus diphtheria (Td) vaccine, age 7+ yr, 5 Lf tetanus, PF (TENIVAC) 06/04/2018 08/30/2018 zoster (RZV) vaccine, recombinant (SHINGRIX) 08/30/2018 Modified Medical Research [place] Dyspnea Scale (MMRC) I stop for breath after walking about 100 yards or after a few minutes on level ground 3 Patient Entered Questionnaires 10/23/2023 PROMIS Global Health - (T-Scores - the mean of general population = 50. Five points is a clinicallymeaningful difference.) Physical T-Score 44.9 Mental T-Score 43.5 documented in this encounterSumma Health Wadsworth [facility]10-01-2024 History of Present illness Narrative* Alan Delgado RT(R) - 03/17/2024 9:15 AM EDT Radiology Service Progress Note PATIENT NAME: Sav [...] PATIENT PRESENTS WITH AN IMPLANTABLE OR ATTACHED TELEVISION REPORTER: N/A RADIOLOGY DEPARTMENT: General X-ray: Exam(s) Completed: Chest X-Ray PERIPHERAL IV DATA: Not applicable SIGNED BY: Lilia CANTU(R) March 17, 2024 8:38 AM documented in this encounterSumma Health Wadsworth [facility]10-01-2024 NoteHNO ID: [id number] Author: ALAN DELGADO RT(R) Service: Radiology Author Type: Technologist Type: [...] PATIENT PRESENTS WITH AN IMPLANTABLE OR ATTACHED TELEVISION REPORTER: N/A RADIOLOGY DEPARTMENT: General X-ray: Exam(s) Completed: Chest X-Ray PERIPHERAL IV DATA: Not applicable SIGNED BY: Lilia CANTU(R) March 17, 2024 8:38 [facility]10-01-2024 NoteHNO ID: [id number] Author: CHELSY HILLS RRT Service: ? Author Type: Registered Resp Therapist Type: Progress Notes Filed: 03/17/2024 08:16 Note Text: PULM FUNCTION: Provider: Katerina Bravo APRN.CNP Spirometry: 1 Exhaled Nitric Oxide: [address] [place], [place] [address]10-01-2024 History of Present illness Narrative* Chelsy Hills RRT - 03/17/2024 8:16 AM EDT PULM FUNCTION: Provider: Katerina Bravo APRN.CNP Spirometry: 1 Exhaled Nitric Oxide: 1 documented in this encounterSumma Health Wadsworth - [facility]10-01-2024 NoteHNO ID: [id number] Author: CHELSY HILLS RRT Service: ? Author Type: Registered Resp [...] Nitric Oxide (ppb) 03/17/2024 13.0 NAME: Chelsy Hills RRT PATIENT NAME: Sav Raymundo DATE: March 17, 2024 TIME: 8:16 [facility]10-01-2024 Procedure note* Chelsy Hills RRT - 03/17/2024 8:16 AM EDTAssociated Order(s): NITRIC OXIDE, EXHALED RESPIRATORY THERAPY ORAL EXHALED [...] Nitric Oxide (ppb) 03/17/2024 13.0 NAME: Chelsy Hills RRT PATIENT NAME: Sav Raymundo DATE: March 17, 2024 TIME: 8:16 AM [facility]10-01-[facility] Procedure note* Chelsy Hills RRT - 03/17/2024 8:16 AM EDTAssociated Order(s): NITRIC OXIDE, EXHALED RESPIRATORY THERAPY ORAL EXHALED [...] Nitric Oxide (ppb) 03/17/2024 13.0 NAME: Chelsy Hills RRT PATIENT NAME: Sav Raymundo DATE: March 17, 2024 TIME: 8:16 AM documented in this encounterSumma Health Wadsworth [facility]09-17-2024 Telephone encounter Note * Telephone Encounter - Bryn Lorenzana RN - 03/03/2024 10:55 AM EDT Images from the original note were not included. [facility] Phone Encounter DATE of SERVICE: 03/03/2024 TIME of SERVICE: 10:56 AM Status: [facility] Service/Provider: Thoracic Surgery Ronaldo Flood M.D. Reason for call: Other Issue Contact information: [phone] Resolution: Sent to [place] Comments: Please call [facility] EVAN Campos back at [phone]. Bryn Lorenzana RN Date of Resolution: 03/03/2024 Time of Resolution 10:56 AM [facility]09-17-2024 Miscellaneous Notes* Telephone Encounter - Bryn Lorenzana RN - 03/03/2024 10:55 AM EDT Images from the original note were not included. [facility] Phone Encounter DATE of SERVICE: 03/03/2024 TIME of SERVICE: 10:56 AM Status: [facility] Service/Provider: Thoracic Surgery Ronaldo Flood M.D. Reason for call: Other Issue Contact information: [phone] Resolution: Sent to [place] Comments: Please call [facility] EVAN Campos back at [phone]. Bryn Lorenzana RN Date of Resolution: 03/03/2024 Time of Resolution 10:56 AM documented in this encounterSumma Health Wad[facility]09-17-2024 Telephone encounter Note * Telephone Encounter - Bryn Lorenzana RN - 03/03/2024 10:50 AM EDT Beth [facility] called back. Please give call when able. [facility]09-17-2024 Miscellaneous Notes* Telephone Encounter - Bryn Lorenzana RN - 03/03/2024 10:50 AM EDT Beth [facility] called back. Please give call when able. * Telephone Encounter - Tita Landry APRN.CNP - 03/03/2024 10:46 AM EDT [facility] Beth GORDON's phone call. States patient's pleurx output is increasing. She continues to drain pleurx twice/week. She drained 800 cc yesterday. She also notes that patient has 2+ pitting BLE edema and weight is up to 211 lbs. He is also becoming full easily, but does not have abdominal s welling. She also states his cough is back. Prednisone course was completed 2 weeks ago and plaquenil increased to BID. States she also has been trying to get in touch to Dr. Hopper's office to update him. Instructed [facility] RN to increase draining to three times weekly until output slows back down. Instructed to have patient call Dr. Hopper's office to schedule an appointment for evaluation of worsening edema and weight gain. Tita Landry APRN.CURT 03/03/2024 10:46 AM * Telephone Encounter - Sherie Payne RN - 03/03/2024 9:54 AM EDT Beth from [facility] [phone] She wanted to speak with Tita Rodriguez CNP. documented in this encounterSumma Health Wadsworth [facility]09-17-2024 Telephone encounter Note * Telephone Encounter - Tita Landry APRN.CNP - 03/03/2024 10:46 AM EDT Returned [facility] Beth GORDON's phone call. States patient's pleurx output is increasing. She continues to drain pleurx twice/week. She drained 800 cc yesterday. She also notes that patient has 2+ pitting BLE edema and weight is up to 211 lbs. He is also becoming full easily, but does not have abdominal s welling. She also states his cough is back. Prednisone course was completed 2 weeks ago and plaquenil increased to BID. States she also has been trying to get in touch to Dr. Hopper's office to update him. Instructed C RN to increase draining to three times weekly until output slows back down. Instructed to have patient call Dr. Hopper's office to schedule an appointment for evaluation of worsening edema and weight gain. Tita Landry APRN.CURT 03/03/2024 10:46 AM [facility]09-17-2024 Telephone encounter Note* Telephone Encounter - Sherie Payne RN - 03/03/2024 9:54 AM EDT Beth from [facility] [phone] She wanted to speak with Tita Rodriguez CNP. [facility]09-06-2024 Telephone encounter Note* Telephone Encounter - Patricia Bermudez RN - 02/21/2024 10:14 AM EDT spoke with [facility] RN Beth , pt notes he has some internal discomfort randomly since Saturday - thisis new. and want to send updates on this (output 700cc straw/awilda ) Saturday 02/17 and drainage today Tuesday 02/20 (drainage 575cc - awilda). Mild SOB remains the same and no increase. abdominal edema is good, 1+ edema in LE. (1375 total for theweek) Last week (1050 cc out) Prednisone stopped last week. saw rheumatology 02/11 plaquenil increased to BID from DAILY - await response Next week Saturday and drainage. Pt is aware of the need to go to the ED if SOB (pt/family is unwilling to drain pleurex at home on their own) PH [phone] [facility] RN. will review updates above with STEAM TUNNEL FEEDER/MD and await any updates appt with dorita and margaret 03/17 and mamta 04/13 for followup Patricia Bermudez RN [facility]09-06-2024 Miscellaneous Notes* Telephone Encounter - Patricia Bermudez RN - 02/21/2024 10:14 AM EDT spoke with [facility] RN Beth , pt notes he has some internal discomfort randomly since Saturday - thisis new. and want to send updates on this (output 700cc straw/awilda ) Saturday 02/17 and drainage today Tuesday 02/20 (drainage 575cc - awilda). Mild SOB remains the same and no increase. abdominal edema is good, 1+ edema in LE. (1375 total for theweek) Last week (1050 cc out) Prednisone stopped last week. saw rheumatology 02/11 plaquenil increased to BID from DAILY - await response Next week Saturday and drainage. Pt is aware of the need to go to the ED if SOB (pt/family is unwilling to drain pleurex at home on their own) PH [phone] [facility] RN. will review updates above with CURT/ and await any updates appt with dorita and margaret 03/17 and mamta 04/13 for followup Patricia Bermudez RN documented in this encounterSumma Health [facility] History of Present illness Narrative* Jose Antonio Hopper MD - 02/12/2024 11:09 AM EDT PROGRESS NOTES Patient Name: Sav Raymundo SERVICE [...] 1 tablet by mouth two times a day.60 tablet 0 predniSONE (DELTASONE) 10 mg tablet Take 1 tablet by mouth as directed. Prednisone 10 mg 2 tabs tidx 5 days,2 tabs bid x 5 days,3 tabs daily x 5 days,2 tabs daily x 5 days,1 tab daily x 5 days,1/2 daily x 4 days and stip 82 tablet 0 potassium chloride ER (KLOR-CON) 20 mEq tablet Take 1 tablet by mouth three times a day. 270 tablet0 calcium carbonate (OS-ADRIANNE 500) 500 mg calcium (1,250 mg) tablet [...] nebu Inhale 3 mL as instructed every 6hours as needed for wheezing/shortness of breath. 360 [...] (1.83m) Wt 204 lb (92.5kg) SpO2 98% BMI27.66 kg/(m^2). General appearance: Overweight, healthy, cooperative, in [...] excursion. Lungs clear to auscultation.+Pleurax catheter Heart: [place] normal. Precordium quiet. RRR. Normal HS with [...] 200 MG TABLET - Will see a economic adviser on 04/13/2024 2. Primary hypertension - ICD9: [...] 275.2, ICD10: E83.42 - MAGNESIUM Jose Antonio Hopper MD SIGNATURE: Jose Antonio Hopper MD DATE: February 12, 2024 TIME: 11:22 AM documented in this encounterSumma Health [facility]08-27-2024 History of Present illness Narrative* Yehuda Dial MD - 02/11/2024 4:22 PM EDT SUBJECTIVE: The chief complaint is recurrent pleural [...] 1 tablet by mouth two times a day.60 tablet 0 predniSONE (DELTASONE) 10 mg tablet Take 1 tablet by mouth as directed. Prednisone 10 mg 2 tabs tidx 5 days,2 tabs bid x 5 days,3 tabs daily x 5 days,2 tabs daily x 5 days,1 tab daily x 5 days,1/2 daily x 4 days and stip 82 tablet 0 potassium chloride ER (KLOR-CON) 20 mEq tablet Take 1 tablet by mouth three times a day. 270 tablet0 calcium carbonate (OS-ADRIANNE 500) 500 mg calcium (1,250 mg) tablet Take 1 tablet by mouth two times a day. 180 tablet 0 acetaminophen (TYLENOL) 500 mg tablet Take 2 tablets by mouth every 6 hours. ipratropium-albuterol (DUONEB) 0.5 mg-3 mg(2.5 mg base)/3 mL nebu Inhale 3 mL as instructed every 6hours as needed for wheezing/shortness of breath. 360 [...] has no purpura and a negative [place] sign. Pupils are equal at 2 mm [...] tablet 2. History of pericarditis Z86.79 Mr. Raymundo was advised to increase hydroxychloroquine to 200 mg twice a day. I spent a total of 45 minutes on this February 12, 2024 reading the physicians', associated with this case, notes, evaluating the previous laboratory values and radiographic studies, reviewing the medication list, performing clinical documentation, eykp-ue-zknx history, the examination, counseling the patient, ordering medications, tests or procedures and communicating the results to this patient. An opportunity for this individual to ask questions was provided. Understanding of the information given, the conclusions of this visit and my recommendations were acknowledged by Mr. Raymundo. Yehuda Dial MD documented in this encounterSumma Health [facility]08-20-2024 NoteHNO ID: [id number] Author: TITA LANDRY APRN.CNP Service: ? Author Type: Nurse Practitioner Type: Progress Notes Filed: 02/05/2024 16:19 Note Text: [facility] [place] DEPARTMENT OF THORACIC SURGERY OUTPATIENT VISIT DATE February 04, 2024 OUTPATIENT VISIT TYPE ESTABLISHED PT NAME: Sav Cantu Kimberly [facility] NO: [id number] THORACIC SURGEON: Ronaldo Flood M.D. DATE OF SERVICE: 02/04/2024 PRINCIPAL DX: Pleural Effusion SURGICAL HX 11/20/2023: R VATS pleural biopsy, right pbx mechanic and doxycycline pleurodesis, right Pleurx catheter insertion, right 20Fr chest tube insertion Surgical Pathology 11/20/2023: FINAL DIAGNOSIS A. Right pleura, biopsy: - Chronic pleuritis with mesothelial hyperplasia (see comment). B. Right pleura, biopsy: - Acute organizing and chronic pleuritis (see comment). DE/ 11/22/2023 Diagnosis Comment A. The biopsy contains [...] reactive proliferation. Drs. Della Subramanian and Zeus [facility] have also reviewed this case and [...] patient underwent R VATS pleural biopsy, right pbx mechanic and doxycycline pleurodesis, right Pleurx catheter insertion, right 20Fr chest tube insertion. He was hospitalized 12/20/23 for anasarca, possible autoimmune disease, recurrent pleural effusion. Imaging did not reveal any acute findings. Patient was admitted to [facility] and started on lasix drip, improving anasarca and pleural effusion. Pleurx catheter was drained daily with significantly decreasing [phone]. He was worked up for an autoimmune [...] denies any fevers, chills, (more content not included)...[facility] 02-04-2024 History of Present illness Narrative* Tita LandryLETICIA.STEAM TUNNEL FEEDER - 02/04/2024 1:28 PM EDT Heart, Vascular [facility] Thoracic [place] DEPARTMENT OF THORACIC SURGERY OUTPATIENT VISIT DATE February 04, 2024 OUTPATIENT VISIT TYPE ESTABLISHED PT NAME: Sav Raymundo [facility] NO: [id number] THORACIC SURGEON: Ronaldo Flood M.D. DATE OF SERVICE: 02/04/2024 PRINCIPAL DX: Pleural Effusion SURGICAL HX 11/20/2023: R VATS pleural biopsy, right pbx mechanic and doxycycline pleurodesis, right Pleurx catheter insertion, [...] 1 shows retained nuclear expression of the mesothelialcells. B. The pleura shows areas with extensive [...] reactive proliferation. [facility]ella [facility]ramanian [facility] also reviewed this case and agree [...] CT. On 11/20/2023, patient underwent R VATS pleuralbiopsy, right pbx mechanic and doxycycline pleurodesis, right Pleurx catheter insertion, right 20Fr chest tube insertion. He was hospitalized 12/20/23 for anasarca, possible autoimmune disease, recurrent pleural effusion. Imaging did not reveal any acute findings. Patient was admitted to [facility] and started on lasix drip, improving anasarca and pleural effusion. Pleurx catheter was drained daily with significantly decreasing output [phone]. He was worked up for an autoimmune disease as well. Hewas discharged on an increased dose of lasix (20mg > 80mg) and started on Plaquenil. PHYSICAL EXAM: VITAL SIGNS: BP 120/69 (BP Site: Left Arm, BP Position: Sitting, BP Cuff Size: Large Adult) Pulse75 Temp 36.2 C (97.1 F) (Temporal) Resp [...] He is scheduled to see PCP and Meter Readers Supervisor next week. He has followed-up with local Wellness Educator, and was referred to Wellness Educator at [facility], which is scheduled on 03/17 with spirometry. Right pleurx drainage has significantly decreased since last visit; now less than 350cc/drainage every MWF. Right pleurx catheter with 150 cc of awilda drainage out in clinic today. IMPRESSION: 73 year old male with pmh significant for recurrent right pleural effusion s/p R VATS pleural biopsy, right pbx mechanic and doxycycline pleurodesis, right Pleurx catheter insertion, right 20Fr chest tube insertion on 11/20/[address] Flood. He was hospitalized 12/20/23 for anasarca, possible autoimmune disease, and recurrent pleural effusion. Imaging did not reveal any acute findings. Patient was admitted to [facility] and started on lasix drip, with improving anasarca and pleural effusion. Pleurx catheter was drained daily with significantly decreasing output [phone]. He was worked up for an autoimmune disease as well. He was discharged on an increased dose of lasix (20mg > 80mg) and started on Plaquenil. Pleurx output has significantly decreased since last visit. CXR fromtoday is still pending; to my eye, shows [...] with updated information, and changes appropriately documented/adjusted. Brieanne Gris, SHOE STICKS REPAIRER.STEAM TUNNEL FEEDER documented in this encounterSumma Health W[facility]08-05-2024 Telephone encounter Note * Telephone Encounter - Jahaira Wood - 01/20/2024 3:35 PM EDT Received Pulmonary office note 01/15/24 from [facility] Record scanned in [employer] Jahaira Wood, clinic administrator [facility]08-05-2024 Miscellaneous Notes* Telephone Encounter - Jahaira Wood - 01/20/2024 3:35 PM EDT Received Pulmonary office note 01/15/24 from [facility] Record scanned in [employer] Jahaira Wood, clinic administrator documented in this encounterSumma Health W[facility]07-31-2024 History of Present illness Narrative* Jose Antonio Hopper MD - 01/15/2024 12:33 PM EDT NEW PATIENT PATIENT NAME: Sav Raymundo SERVICE [...] Medications Medication Sig Dispense Refill calcium carbonate (OS-ADRIANNE 500) 500 mg calcium (1,250 mg) tablet [...] 1 tablet by mouth two times a day.60 tablet 0 furosemide (LASIX) 40 mg tablet Take 1 tablet by mouth once daily. At 2 pm 30 tablet 1 acetaminophen (TYLENOL) 500 mg tablet Take 2 tablets by mouth every 6 hours. ipratropium-albuterol (DUONEB) 0.5 mg-3 mg(2.5 mg base)/3 mL nebu Inhale 3 mL as instructed every 6hours as needed for wheezing/shortness of breath. 360 mL 0 allopurinol (ZYLOPRIM) 300 mg tablet Take 300 mg by mouth once daily. atorvastatin (LIPITOR) 10 mg tablet Take 1 tablet by mouth once daily. omeprazole (PRILOSEC) 20 mg capsule Take 20 mg by mouth once daily. predniSONE (DELTASONE) 10 mg tablet Take 1 tablet by mouth as directed. Prednisone 10 mg 2 tabs tidx 5 days,2 tabs bid x 5 days,3 tabs daily x 5 days,2 tabs daily x 5 days,1 tab daily x 5 days,1/2 daily x 4 days and stip 82 tablet 0 potassium chloride ER (KLOR-CON) 20 mEq tablet Take 1 tablet by mouth three times a day. 270 tablet0 No current facility-administered medications for this visit. [...] (1.83m) Wt 214 lb (97.1kg) SpO2 96% BMI29.02 kg/(m^2). General appearance: Overweight, healthy, cooperative, in [...] excursion. Lungs decreased BS in bases Heart: [place] normal. Precordium quiet. RRR. Normal HS with [...] PREDNISONE 10 MG TABLET taper Jose Antonio Hopper MD SIGNATURE: Jose Antonio Hopper MD DATE: January 15, 2024 TIME: 12:34 PM documented in this encounterSumma Health [facility]07-22-2024 History of Present illness Narrative* Yehuda Dial MD - 01/06/2024 5:01 PM EDT SUBJECTIVE: The chief complaint is right pleural effusion Mr. Raymundo relates that the visiting nurse comes to his house and drains 500 to 1000+ cc of pleural fluid every 2 days. He is concerned about taking a vacation to [place] for that reason. In addition, he complains [...] Medications Medication Sig Dispense Refill calcium carbonate (OS-ADRIANNE 500) 500 mg calcium (1,250 mg) tablet [...] 1 tablet by mouth two times a day.60 tablet 0 montelukast (SINGULAIR) 10 mg tablet [...] nebu Inhale 3 mL as instructed every 6hours as needed for wheezing/shortness of breath. 360 [...] caries. Parotid glands are not enlarged. Lung esparza are clear bilaterally. Heart has [...] with the thoracic surgery service of Ronaldo Flood MD. Hydroxychloroquine is continued for 4 more weeks. I spent a total of 45 minutes on January 06, 2024 reading the physicians', associated with this case, notes, evaluating the previous laboratory values and radiographic studies, reviewing the medication list, performing clinical documentation, unni-kv-bvcf history, the examination, counseling the patient, ordering medications, tests or procedures and communicating the results to this patient. An opportunity for this individual to ask questions was provided. Understanding of the information given, the conclusions of this visit and my recommendations were acknowledged by Mr. Raymundo. Yehuda Dial MD documented in this encounterSumma Health W[facility]07-22-2024 History of Present illness Narrative* Katerina Bravo APRN.STEAM TUNNEL FEEDER - 01/06/2024 3:53 PM EDT Dear Ruma Oshea PA-C, Thank you for the referral of Sav Raymundo for evaluation. Chronic Cough E-consult - Chart Reviewed. Chronic Cough: x 04/2024 History of prior Pulm evaluation: yes; [facility] Prior PFTs: unable to locate Prior [...] locate. Will need to request records from [facility] where he director of environmental services is. Please arrange the following testing to be done prior to visit: Spirometry with dilator if obstructed Nitric Oxide Katerina Bravo APRN Pulmonary Medicine 01/06/2024 documented in this encounterSumma Health W[facility]07-22-2024 History of Present illness Narrative* Ruma Oshea PA-C - 01/06/2024 2:00 PM EDT Images from the original note were not included. [facility] - OUTPATIENT THORACIC SURGERY CLINIC NOTE PT NAME: Sav Raymundo [facility] NO: [id number] THORACIC SURGEON: Ronaldo Flood M.D. DATE OF SERVICE: 01/06/2024 PRINCIPAL DX: Pleural Effusion SURGICAL HX 11/20/2023: R VATS pleural biopsy, right pbx mechanic and doxycycline pleurodesis, right Pleurx catheter insertion, [...] any acute findings. Patient was admitted to [facility] and started on lasix drip, improving anasarca and pleural effusion. Pleurx catheter was drained daily with significantly decreasing output [phone]. He was worked up for an autoimmune disease as well. He wasdischarged on an increased dose of lasix (20mg > 80mg) and started on Plaquenil. Today he deniesfevers, chills, night sweats. Pain is well controlled. [...] clinic. Patient does have follow up with economic adviser today and director of environmental services next week. Will fax over recent medical information to director of environmental services. Patient also going on a bus trip [...] effusion s/p R VATS pleural biopsy, right pbx mechanic and doxycycline pleurodesis, right Pleurx catheter insertion, right 20Fr chest tube insertion on 11/20/[address] Flood. Patient overall doing well from a clinical standpoint. CXR from today is still pending; to my eye, shows slight increase in right pleural effusion when compared to CXR from 12/23. Patient continues to drain around 500cc from pleurx catheter every other day. PLAN: - follow up with PROOF PASSER in 4 weeks with CXR; sooner if experiencing new or worsening symptoms - continue to drain pleurx every other day / when symptomatic - follow up with director of environmental services Dr. Clemente - referral placed for chronic cough clinic - will send over OR report, pathology report, recent hospital discharge, recent CXR report, and today's clinic note to director of environmental services Dr. Bryn Oshea PA-C documented in this encounterSumma Health W[facility]07-22-2024 NoteHNO ID: [id number] Author: RUMA OSHEA PA-C Service: ? Author Type: Physician Captain Waiter/Waitress Type: Progress Notes Filed: 01/06/2024 14:58 Note Text: [facility] - OUTPATIENT THORACIC SURGERY CLINIC NOTE PT NAME: Sav Raymundo [facility] NO: [id number] THORACIC SURGEON: Ronaldo Flood M.D. DATE OF SERVICE: 01/06/2024 PRINCIPAL DX: Pleural Effusion SURGICAL HX 11/20/2023: R VATS pleural biopsy, right pbx mechanic and doxycycline pleurodesis, right Pleurx catheter insertion, [...] any acute findings. Patient was admitted to [facility] and started on lasix drip, improving anasarca and pleural effusion. Pleurx catheter was drained daily with significantly decreasing output [phone]. He was worked up for an autoimmune [...] clinic. Patient does have follow up with economic adviser today and director of environmental services next week. Will fax over recent medical information to director of environmental services. Patient also going on a bus trip [...] effusion s/p R VATS pleural biopsy, right pbx mechanic and doxycycline pleurodesis, right Pleurx catheter insertion, right 20Fr chest tube insertion on 11/20/[address] Flood. Patient overall doing well from a clinical standpoint. CXR from today is still pendin (more content not included)...[facility]07-22-2024 History of Present illness Narrative* Sherie Carrion RT(R) - 01/06/2024 1:15 PM EDT Radiology Service Progress Note PATIENT NAME: Sav Raymundo DATE OF SERVICE: January 06, 2024 TIME: 1:08 PM PATIENT IDENTITY VERIFICATION COMPLETED USING TWO (2) IDENTIFIERS: Name and Date of confirmedby patient verbally and Name and Date of confirmed by identification band. FALL SCREENING: Has the patient had 2 falls in the last year or 1 fall with injury or currently using an Ambulatory Assistive Device (Walker, Cane, Wheelchair, Crutches, etc.)? No PATIENT GENDER DATA: Male PATIENT RELEVANT IMPLANT DATA REVIEWED: Not Applicable PATIENT PRESENTS WITH AN IMPLANTABLE OR ATTACHED TELEVISION REPORTER: No RADIOLOGY DEPARTMENT: General X-ray: Exam(s) Completed: Chest X-Ray PERIPHERAL IV DATA: Not applicable SIGNED BY: IMAN Go) January 06, 2024 1:08 PM documented in this encounterSumma Health Wad[facility]07-22-2024 NoteHNO ID: [id number] Author: SHERIE CARRION RT(R) Service: Radiology Author Type: Technologist Type: [...] PATIENT PRESENTS WITH AN IMPLANTABLE OR ATTACHED TELEVISION REPORTER: No RADIOLOGY DEPARTMENT: General X-ray: Exam(s) Completed: Chest X-Ray PERIPHERAL IV DATA: Not applicable SIGNED BY: RT Abbi(R) January 06, 2024 1:08 PM[facility]07-11-2024 NoteHNO ID: [id number] Author: LUPE BAUER RN Service: Care Management [...] the inter-professional team: Yes Name of Caregiver: [facility] Transportation Arrangements Transportation Arrangements: Car Discharge Information Row Name ED to Hosp-Admission (Current) from 12/20/[address] Care Agency [facility] Start of Care -- agency will contact patient Spouse at bedside to transport home. DC arrangements confirmed with patient, spouse, [facility], and bedside nurse. 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 Nuclear Med Report: [id number] PLANAR and SPECT: Myocardial imaging of the chest with CT attenuation correction was performed at 3 hours post IV injection of Tc-99m Pyrophosphate. See administered doses below. 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 CT Dose R (more content not included)...[facility]07-10-2024 NoteHNO ID: [id number] Author: RAFIA TOVAR RT(R) Service: Nuclear Medicine [...] PATIENT PRESENTS WITH AN IMPLANTABLE OR ATTACHED TELEVISION REPORTER: No CREATININE: Creatinine Date Value Ref Range [...] documentation POST EXAM PIV STATUS: Inpatient see LDA documentation PROCEDURE TYPE: NM INJECT: AMYLOID SPECT CT. 24.0 mCi Tc99m HDP. No other medications given.. ADMINISTRATION TIME: 1100 PATIENT DISCHARGED TO: Patient taken to IP transport area for return to RNF/ICU/ED. A Diagnostic radioactive procedure has taken place, with no further precautions necessary other than routine body substance precautions. More information regarding radiation safety can be found using this link: [email or web address] SIGNATURE: RT Seema(R) PATIENT NAME: Sav Raymundo DATE: December 25, 2023 TIME: 11:01 AM PAGER/CONTACT #:[facility]07-09-2024 NoteHNO ID: [id number] Author: JOSE ANTONIO HOPPER MD Service: Family Practice Author Type: Physician [...] the last 24 hours. SIGNATURE: Jose Antonio Hopper MD DATE: December 24, 2023 TIME: 8:05 [facility]07-08-2024 NoteHNO ID: [id number] Author: JOSE ANTONIO HOPPER MD Service: Family Practice Author Type: Physician [...] MG 1.9 ANION 17* SIGNATURE: Jose Antonio Hopper MD DATE: December 23, 2023 TIME: 4:11 PM[facility]07-08-2024 NoteHNO ID: [id number] Author: LUPE BAUER RN Service: Care Management [...] with his spouse. He is active with [facility] for mcfp and pleurx supplies. Plan home with resumption of [facility]. Will need home care orders for SN prior to discharge. CM following. SIGNATURE: Lupe Bauer RN PATIENT NAME: Sav Raymundo DATE: December 23, 2023 TIME: 2:04 PM PAGER/CONTACT #: [phone] NoteHNO ID: [id number] Author: RUMA OSHEA PA-C Service: Thoracic Surgery Author Type: Physician Captain Waiter/Waitress Type: Plan of Care Filed: 12/23/2023 07:53 Note Text: PLEASE PAGE [phone] WITH SURGICAL QUESTIONS OR CONCERNS. (This includes issues with chest tubes, surgical drains, feeding tubes, incisions or changes in clinical status). Thoracic Surgery - Plan of Care HPI: Sav Raymundo is a 73 y/o male referred by Alpa Oliva CNP for an opinion regarding management of recurrent right pleural effusion. 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 biopsy, right pbx mechanic and doxycycline pleurodesis, right Pleurx catheter insertion on 11/20/[address] Flood for recurrent right pleural effusion. Cytology revealed [...] with questions. Case discussed with Dr. Dwight Oshea PA-C 12/23/2023 7:48 AM PAGER [phone]07-07-2024 NoteHNO ID: [id number] Author: JOSE ANTONIO HOPPER MD Service: [facility] Author Type: Physician Type: Progress Notes [...] pain especially on changing position PRIMARY SERVICE: [facility] OBJECTIVE PHYSICAL EXAM: Patient Vitals for [...] MCH 29.6 MPV 10.2 CMP: Recent Labs 12/22/2361712/21/23 1156 NA 139 138 K 3.3* 3.9 CHLOR 99 106 CO2 24 19* BUN 12 12 CREAT 0.98 0.86 GLUC 109* 115* TPROT -- 6.4 CA 9.0 8.7 MG 1.6* -- TBILI -- 0.8 ALKPHOS -- 100 ALT -- 11 AST -- 18 ANION 16* 13 SIGNATURE: Jose Antonio Hopper MD DATE: December 22, 2023 TIME: 11:01 [facility]07-06-2024 NoteHNO ID: [id number] Author: TRACY ROBLES LSW Service: Care Management Author Type: Order Selector Type: Care Mgt Initial Assessment Filed: 12/21/2023 13:04 Note Text: CARE MANAGEMENT: ASSESSMENT AND DISCHARGE PLAN SERVICE DATE: December 21, 2023 SERVICE TIME: 1:02 PM PCP: Yuli Mariscal DO Primary Contact: Extended Emergency Contact Information Primary Emergency Contact: Virgen Raymundo (HCPOA) Address: [address] [place] [address] [place] [address] [place] Mobile Relation: Spouse Secondary Emergency Contact: Kimberly,(1st alt HCPOADeysi Espino Address: [address] [place], [place] [id number] Mobile Relation: Brother Admission Status: Inpatient Insurance Provider: [employer] MED[employer]ARE PPO Discharge Planning requested by: Per Department Practice Potential Transition Plans To Be Determined;Home Care Advance Directives Current Advance Directive: Health Care Power of Mounting Machine Operator;Living Will In Chart: Yes Current Living Arrangements and Support Lives with: Spouse/significant other Type of Residence: Support: How do you manage to accomplish the following: Independent: Ambulation Current Services/Equipment Current Post-Acute Service(s): Skilled Home Care Discharge Planning Patient Goal(s): Be able to go home, General wellness Register of Choice Explained: Register of Choice Given: Yes Level of Care [...] from home with her. Patient active with [facility]- provides PE supplies- referral placed. Spouse aware floor CM to follow for dc needs NEED [facility] ORDER. SIGNATURE: BERTA Benson PATIENT NAME: Sav Raymunod DATE: December 21, 2023 TIME: 1:02 PM CONTACT #: .[facility]07-05-2024 NoteHNO ID: [id number] Author: TITA LANDRY APRN.CNP Service: ? Author Type: Nurse Practitioner Type: Progress Notes Filed: 01/19/2024 21:56 Note Text: [facility] DEPARTMENT OF THORACIC SURGERY OUTPATIENT VISIT DATE December 20, 2023 OUTPATIENT VISIT TYPE ESTABLISHED PT NAME: Sav Raymundo CLINIC NO: [id number] THORACIC SURGEON: Ronaldo Flood M.D. DATE OF SERVICE: 12/20/2023 PRINCIPAL DX: Pleural Effusion SURGICAL HX 11/20/2023: R VATS pleural biopsy, right pbx mechanic and doxycycline pleurodesis, right Pleurx catheter insertion, [...] reports pain along bot (more content not included)...[facility]07-05-2024 History of Present illness Narrative* Tita Landry APRN.STEAM TUNNEL FEEDER - 12/20/2023 1:43 PM EDT [facility] DEPARTMENT OF THORACIC SURGERY OUTPATIENT VISIT DATE December 20, 2023 OUTPATIENT VISIT TYPE ESTABLISHED PT NAME: Sav Raymundo [facility] NO: [id number] THORACIC SURGEON: Ronaldo Flood M.D. DATE OF SERVICE: 12/20/2023 PRINCIPAL DX: Pleural Effusion SURGICAL HX 11/20/2023: R VATS pleural biopsy, right pbx mechanic and doxycycline pleurodesis, right Pleurx catheter insertion, [...] 1 shows retained nuclear expression of the mesothelialcells. B. The pleura shows areas with extensive [...] reactive proliferation. Drs. Della Subramanian and [facility] have also reviewed this case and [...] visit. States he has not been doing wellsince last visit. Notes that he ate half [...] is only able to eat half of w hat he normally eats because he becomes full so easily. Despite eating less, he has gained 6 lbs inthe past 2.5 weeks. He reports worsening swelling in legs and abdomen. He reports pain along both sides of his abdomen d/t the swelling. He also notes that his cough is worsening, to the point where he is gagging/vomiting. Reports he threw up his entire meal after his left pleurx was drained on /t coughing. States he has been having a lot of sinus drainage this past week and is coughing up alot of phlegm. Right pleurx drainage as follows: 12/15 1150 cc 12/17 1000 cc Right pleurx catheter with 950 cc of awilda drainage out in clinic today; drained by Jessica Enriquez RN. IMPRESSION: 73 year old male with pmh significant for recurrent right pleural effusion s/p R VATS pleural biopsy, right pbx mechanic and doxycycline pleurodesis, right Pleurx catheter insertion, right 20Fr chest tube insertion on 11/20/[address] Flood. Patient has not been doing well since last visit on 12/13/2023 with c/o N/V, abdominal pain, diarrhea, weight gain, and edema. CXR from today is still pending; to my eye, shows stable right pleural effusion. Patient continues to drain large amountsfrom pleurx catheter every other day. PLAN: -Instructed patient to present to ED for further work-up and evaluation of N/V, abdominal pain, diarrhea, weight gain, and edema Part of this note was copied from my previous note, all content has been individually and thoroughly reviewed, updated as necessary, patient assessed with updated information, and changes appropriately documented/adjusted. Tita Landry APRN.CURT documented in this encounterSumma [facility] Miscellaneous Notes* Telephone Encounter - Pearl Lopez I, RN - 12/17/2023 9:39 AM EDT Images from the original note were not included. [facility] [place] Phone Encounter DATE of SERVICE: 12/17/2023 TIME of SERVICE: 9:39 AM Status: Non-urgent, needs attention Service/Provider: Thoracic Surgery Ronaldo Flood M.D. Reason for call: Other Issue Contact information: [phone] [facility]: [facility] Comments: Received call from [facility] Nurse. States she saw patient yesterday. He did not have a good weekend. Nausea/Vomiting, diarrhea, increase in pain with coughing while drain being emptied. She willsee him again tomorrow but wanted to update office. We called patient to see how he was doing today. States he feels same. No better no worse. Able to keep some food down. Does not feel he needs to go to ED. States he feels he can wait to be seen thisfriday. [facility] will be there tomorrow. Please advise if any further recommendations Pearl Lopez RN Date of Resolution: 12/17/2023 Time of Resolution 9:39 AM documented in this encounterSumma Health [facility]07-[facility]-2024 Telephone encounter Note * Telephone Encounter - Pearl Lopez I, RN - 12/17/2023 9:39 AM EDT Images from the original note were not included. [facility] [place] Phone Encounter DATE of SERVICE: 12/17/2023 TIME of SERVICE: 9:39 AM Status: Non-urgent, needs attention Service/Provider: Thoracic Surgery Ronaldo Flood M.D. Reason for call: Other Issue Contact information: [phone] Resolution: Sent to [place] Comments: Received call from [facility] Nurse. States she saw patient yesterday. He did not have a good weekend. Nausea/Vomiting, diarrhea, increase in pain with coughing while drain being emptied. She willsee him again tomorrow but wanted to update office. We called patient to see how he was doing today. States he feels same. No better no worse. Able to keep some food down. Does not feel he needs to go to ED. States he feels he can wait to be seen thisfriday. [facility] will be there tomorrow. Please advise if any further recommendations Pearl Lopez RN Date of Resolution: 12/17/2023 Time of Resolution 9:39 AM [facility]06-28-2024 NoteHNO ID: [id number] Author: TITA LANDRY APRN.CNP Service: ? Author Type: Nurse Practitioner Type: Progress Notes Filed: 01/16/2024 22:44 Note Text: [facility] DEPARTMENT OF THORACIC SURGERY OUTPATIENT VISIT DATE December 13, 2023 OUTPATIENT VISIT TYPE ESTABLISHED PT NAME: Adams E [facility] NO: [id number] THORACIC SURGEON: Ronaldo Flood M.D. DATE OF SERVICE: 12/13/2023 PRINCIPAL DX: Pleural Effusion SURGICAL HX 11/20/2023: R VATS pleural biopsy, right pbx mechanic and doxycycline pleurodesis, right Pleurx catheter insertion, right 20Fr chest tube insertion Surgical Pathology 11/20/2023: FINAL DIAGNOSIS A. Right pleura, biopsy: - Chronic pleuritis with mesothelial hyperplasia (see comment). B. Right pleura, biopsy: - Acute organizing and chronic pleuritis (see comment). DE/ 11/22/2023 Diagnosis Comment A. The biopsy contains [...] effusion s/p R VATS pleural biopsy, right pbx mechanic and doxycycline pleurodesis, right Pleurx catheter insertion, right 20Fr chest tube insertion on 11/20/[address] Flood. Patient overall doing (more content not included)...[facility]06-28-2024 History of Present illness Narrative* Tita Landry APRN.STEAM TUNNEL FEEDER - 12/13/2023 1:27 PM EDT [facility] DEPARTMENT OF THORACIC SURGERY OUTPATIENT VISIT DATE December 13, 2023 OUTPATIENT VISIT TYPE ESTABLISHED PT NAME: Sav Raymundo CLINIC NO: [id number] THORACIC SURGEON: Ronaldo Flood M.D. DATE OF SERVICE: 12/13/2023 PRINCIPAL DX: Pleural Effusion SURGICAL HX 11/20/2023: R VATS pleural biopsy, right pbx mechanic and doxycycline pleurodesis, right Pleurx catheter insertion, right 20Fr chest tube insertion Surgical Pathology 11/20/2023: FINAL DIAGNOSIS A. Right pleura, biopsy: - Chronic pleuritis with mesothelial hyperplasia (see comment). B. Right pleura, biopsy: - Acute organizing and chronic pleuritis (see comment). DE/ 11/22/2023 Diagnosis Comment A. The biopsy contains pleural tissue with chronic inflammation and focal reactive mesothelial hyperplasia. An immunohistochemical stain for BAP 1 shows retained nuclear expression of the mesothelialcells. B. The pleura shows areas with extensive [...] effusion s/p R VATS pleural biopsy, right pbx mechanic and doxycycline pleurodesis, right Pleurx catheter insertion, right 20Fr chest tube insertion on 11/20/[address] Flood. Patient overall doing well from a clinical standpoint. CXR from today is still pending; to my eye, shows stable right pleural effusion. Patient continues to drain large amounts from pleurx catheter every other day. PLAN: -Follow-up in 1 week with CXR and STEAM TUNNEL FEEDER visit; sooner if experiencing new/worsening clinical symptoms -Continue to drain pleurx every other day Part of this note was copied from my previous note, all content has been individually and thoroughly reviewed, updated as necessary, patient assessed with updated information, and changes appropriately documented/adjusted. Tita Landry APRN.CURT documented in this encounterSumma Health W[facility]06-18-2024 Telephone encounter Note * Telephone Encounter - Lilia Ornelas - 12/03/2023 4:42 PM EDT Confirmed date and time of apts w/ patient and his via phone. Both have access to MyChart. PF 12/13/2023 at [place] CXR at 1:30pm Est 1 week follow up w/ Tita [facility] at 2pm Per staff message from [facility]: please schedule patient for follow-up with me with CXR in 1 week [facility]06-18-2024 Miscellaneous Notes* Telephone Encounter - Lilia Ornelas - 12/03/2023 4:42 PM EDT Confirmed date and time of apts w/ patient and his via phone. Both have access to MyChart. PF 12/13/2023 at [place] CXR at 1:30pm Est 1 week follow up w/ Tita [facility] at 2pm Per staff message from [facility]: please schedule patient for follow-up with me with CXR in 1 week documented in this encounterSumma Health Wad[facility]06-18-2024 Nurse Note* Jessica Enriquez RN - 12/03/2023 1:47 PM EDT Patient stated he was having SOB. Pleur x drained yesterday for 1075ml. Attempted to drain pleur x today no drainage present. Applied dressing. Jessica Enriquez RN [facility]06-18-2024 Nurse Note* Jessica Enriquez RN - 12/03/2023 1:47 PM EDT Patient stated he was having SOB. Pleur x drained yesterday for 1075ml. Attempted to drain pleur x today no drainage present. Applied dressing. Jessica Enriquez, RN documented in this encounterSumma Health [facility]06-18-2024 NoteHNO ID: [id number] Author: TITA LANDRY APRN.CNP Service: ? Author Type: Nurse Practitioner Type: Progress Notes Filed: 12/30/2023 22:10 Note Text: [facility] DEPARTMENT OF THORACIC SURGERY OUTPATIENT VISIT DATE December 03, 2023 OUTPATIENT VISIT TYPE ESTABLISHED PT NAME: Sav Cantu [facility] NO: [id number] THORACIC SURGEON: Ronaldo Flood M.D. DATE OF SERVICE: 12/03/2023 PRINCIPAL DX: Recurrent Right Pleural Effusion SURGICAL HX 11/20/2023: R VATS pleural biopsy, right pbx mechanic and doxycycline pleurodesis, right Pleurx catheter insertion, right 20Fr chest tube insertion Surgical Pathology 11/20/2023: Component FINAL DIAGNOSIS A. Right pleura, biopsy: - Chronic pleuritis with mesothelial hyperplasia (see comment). B. Right pleura, biopsy: - Acute organizing and chronic pleuritis (see comment). DE/ 11/22/2023 Diagnosis Comment A. The biopsy contains [...] patient underwent R VATS pleural biopsy, right pbx mechanic and doxycycline pleurodesis, right Pleurx catheter insertion, [...] States pleurx was last drained yesterday by [facility] with 1,025 cc out. Did not drain in clinic today. Reviewed final pathology results which showshronic pleuritis with mesothelial hyperplasia, with no definitive evidence of malignancy. Patient's voices frustration that the cause of the patient's recurrent effusion is still (more content not included)...[facility]06-18-[facility] History of Present illness Narrative* Tita Landry, LETICIA.STEAM TUNNEL FEEDER - 12/03/2023 1:02 PM EDT [facility] DEPARTMENT OF THORACIC SURGERY OUTPATIENT VISIT DATE December 03, 2023 OUTPATIENT VISIT TYPE ESTABLISHED PT NAME: Sav Raymundo CLINIC NO: [id number] THORACIC SURGEON: Ronaldo Flood M.D. DATE OF SERVICE: 12/03/2023 PRINCIPAL DX: Recurrent Right Pleural Effusion SURGICAL HX 11/20/2023: R VATS pleural biopsy, right pbx mechanic and doxycycline pleurodesis, right Pleurx catheter insertion, right 20Fr chest tube insertion Surgical Pathology 11/20/2023: Component FINAL DIAGNOSIS A. Right pleura, biopsy: - Chronic pleuritis with mesothelial hyperplasia (see comment). B. Right pleura, biopsy: - Acute organizing and chronic pleuritis (see comment). DE/ 11/22/2023 Diagnosis Comment A. The biopsy contains pleural tissue with chronic inflammation and focal reactive mesothelial hyperplasia. An immunohistochemical stain for BAP 1 shows retained nuclear expression of the mesothelialcells. B. The pleura shows areas with extensive [...] CT. On 11/20/2023, patient underwent R VATS pleuralbiopsy, right pbx mechanic and doxycycline pleurodesis, right Pleurx catheter insertion, [...] States pleurx was last drained yesterday by [facility] with 1,025 cc out. Did not drain in clinic today. Reviewed final pathology results which showshronic pleuritis with mesothelial hyperplasia, with no definitive evidence of malignancy. Patient's voices frustration that the cause of the patient'srecurrent effusion is still unknown. Dr. Flood in to see patient. He also reviewed pathology/cytology results. Patient and his 's questions answered IMPRESSION: 73 year old male with pmh significant for recurrent right pleural effusion s/p R VATS pleural biopsy, right pbx mechanic and doxycycline pleurodesis, right Pleurx catheter insertion, right 20Fr chest tube insertion on 11/20/[address] Flood. Patient overall doing well from a clinical standpoint. CXR from today is still pending; to my eye, shows stable right pleural effusion. Patient continues to drain large amounts from pleurx catheter every other day. PLAN: -Follow-up in 1 week with CXR and STEAM TUNNEL FEEDER visit; sooner if experiencing new/worsening clinical symptoms -Continue to drain pleurx every other day Part of this note was copied from my previous note, all content has been individually and thoroughly reviewed, updated as necessary, patient assessed with updated information, and changes appropriately documented/adjusted. Tita Landry APRN.STEAM TUNNEL FEEDER documented in this encounterSumma Health W[facility]06-18-2024 History of Present illness Narrative* Isamar Guevara RT(R) - 12/03/2023 12:30 PM EDT Radiology Service Progress Note PATIENT NAME: Sav Raymundo DATE OF SERVICE: December 03, 2023 TIME: 12:26 PM PATIENT IDENTITY VERIFICATION COMPLETED USING TWO (2) IDENTIFIERS: Name and Date of confirmedby patient verbally and Name and Date of confirmed by identification band. FALL SCREENING: Has the patient had 2 falls in the last year or 1 fall with injury or currently using an Ambulatory Assistive Device (Walker, Cane, Wheelchair, Crutches, etc.)? No PATIENT GENDER DATA: Male PATIENT RELEVANT IMPLANT DATA REVIEWED: Yes PATIENT PRESENTS WITH AN IMPLANTABLE OR ATTACHED TELEVISION REPORTER: No RADIOLOGY DEPARTMENT: General X-ray: Exam(s) Completed: Chest X-Ray PERIPHERAL IV DATA: Not applicable SIGNED BY: RT Betty(Sandee) December 03, 2023 12:26 PM documented in this encounterSumma Health W[facility]06-18-2024 NoteHNO ID: [id number] Author: ISAMAR GUEVARA RT(R) Service: Radiology Author Type: Technologist Type: [...] PATIENT PRESENTS WITH AN IMPLANTABLE OR ATTACHED TELEVISION REPORTER: No RADIOLOGY DEPARTMENT: General X-ray: Exam(s) Completed: Chest X-Ray PERIPHERAL IV DATA: Not applicable SIGNED BY: RT Betty(Sandee) December 03, 2023 12:26 PMW[facility]06-14-2024 History of Present illness Narrative* Tita Landry APRN.STEAM TUNNEL FEEDER - 11/29/2023 3:00 PM EDT [facility] DEPARTMENT OF THORACIC SURGERY OUTPATIENT VISIT DATE November 29, 2023 OUTPATIENT VISIT TYPE ESTABLISHED PT NAME: Sav Raymundo CLINIC NO: [id number] THORACIC SURGEON: Ronaldo Flood M.D. DATE OF SERVICE: 11/29/2023 PRINCIPAL DX: Pleural Effusion SURGICAL HX 11/20/2023: R VATS pleural biopsy, right pbx mechanic and doxycycline pleurodesis, right Pleurx catheter insertion, [...] CT. On 11/20/2023, patient underwent R VATS pleuralbiopsy, right pbx mechanic and doxycycline pleurodesis, right Pleurx catheter insertion, [...] sweats. Pain is well controlled on current regimen.Breathing has improved since pleurx placement, and notes breathing is more shallow prior to draining pleurx. Right pleurx catheter with drainage as follows 11/24: 945 cc (dark awilda with foam) 11/26: 450 cc (gold letterer than last time with foam) I drained [...] week on a day that he can beseen by Dr. Flood to further discuss. IMPRESSION: 73 year old male with pmh significant for recurrent right pleural effusion s/p R VATS pleural biopsy, right pbx mechanic and doxycycline pleurodesis, right Pleurx catheter insertion, right 20Fr chest tube insertion on 11/20/[address] Flood. Patient overall doing well from a clinical [...] daily with KDUR supplementation for edema Tita Landry APRN.STEAM TUNNEL FEEDER documented in this encounterSumma Health Wad[facility]06-14-2024 NoteHNO ID: [id number] Author: TITA LANDRY APRN.STEAM TUNNEL FEEDER Service: ? Author Type: Nurse Practitioner Type: Progress Notes Filed: 12/30/2023 21:20 Note Text: [facility] DEPARTMENT OF THORACIC SURGERY OUTPATIENT VISIT DATE November 29, 2023 OUTPATIENT VISIT TYPE ESTABLISHED PT NAME: Sav Raymundo CLINIC NO: [id number] THORACIC SURGEON: Ronaldo Flood M.D. DATE OF SERVICE: 11/29/2023 PRINCIPAL DX: Pleural Effusion SURGICAL HX 11/20/2023: R VATS pleural biopsy, right pbx mechanic and doxycycline pleurodesis, right Pleurx catheter insertion, [...] patient underwent R VATS pleural biopsy, right pbx mechanic and doxycycline pleurodesis, right Pleurx catheter insertion, [...] (dark awilda with foam) 11/26: 450 cc (gold letterer than last time with foam) I drained 790 cc of serosanguinous drainage in clinic today. Recommend draining pleurx daily until output slows down, but states she is unable to and [facility] comes every other day. Reviewed with patient and his that fluid cytology was negative for malignant cells, but surgical pathology results were not in yet. Patient and voice frustration that they do not have an answer as to where the fluid is coming from. Requesting to follow-up next week on a day that he can be seen by Dr. Flood to further discuss. IMPRESSION: 73 year old male with pmh significant for recurrent right pleural effusion s/p R VATS pleural biopsy, right pbx mechanic and doxycycline pleurodesis, right Pleurx catheter insertion, right 20Fr chest tube insertion on 11/20/[address] Flood. Patient overall doing well from a clinical [...] with KDUR supplementation for edema Tita Landry, LETICIA.[facility]05-28-2024 History of Present illness Narrative* Ronaldo Flood MD, PhD - 11/12/2023 3:21 PM EDT I have read and reviewed the documentation and agree. I wish to add the following findings which have been dictated and will be communicated back to the requesting physician. Ronaldo Flood MD, PhD * Huy Robles RN - 11/12/2023 1:20 PM EDT CHART COPY DO NOT DISCARD . Patient [...] . Last clinic note 10/24/2023 per Ronaldo Flood M.D. Recurrent Right Pleural Effusion IMPRESSION: Never [...] and lung testing would be reasonable. It wasa pleasure seeing the patient and I look forward to assisting in his care going forward. . Today's visit 11/12/23: Presents with SOB with any exertion and needing to sleep in chair sitting up. Pt. sent to [facility]. for Thoracentesis 11/12/[address] Rosario IMPRESSION: Completed Right thoracentesis with approximately 1700 mL of fluid withdrawal. Estimatedblood loss: Minimal. CXR: 11/12/2023 RESULT: Lines, tubes, and devices: None. Lungs and pleura: Increased moderate right pleural effusion with associated atelectasis/consolidation. No pneumothorax.. Cardiomediastinal silhouette: Stable cardiomediastinal silhouette. Bones and soft tissues: Degenerative changes are present within the thoracic spine. . Not needed per Dr. Flood Cardiac Studies: Nuclear Medicine Stress Test: 11/12/2023 [...] Risk, benefits, and alternatives discussed per Ronaldo Flood M.D. H&P 10/24/[address] Malone Films 10/18/2023 CCT . Huy Robles RN documented in this encounterSumma Health Wad[facility]05-28-2024 Nurse Note* Huy Robles RN - 11/12/2023 2:27 PM EDT PATIENT EDUCATION The following was evaluated: Motivation To Learn: Interested Family/Significant Other Support: High - Very involved in pt care Cognitive Ability: Alert and oriented Patient Learns Best By: Multiple Methods The Following Influencing Factors Were Barriers To This Education Session: No barriers Tie Loader Present: Not Applicable The Following Physical Limitations [...] Robles RN. In Department of THORACIC CLINIC. [facility]05-28-[facility] Nurse Note* Huy Robles RN - 11/12/2023 2:27 PM EDT PATIENT EDUCATION The following was evaluated: Motivation To Learn: Interested Family/Significant Other Support: High - Very involved in pt care Cognitive Ability: Alert and oriented Patient Learns Best By: Multiple Methods The Following Influencing Factors Were Barriers To This Education Session: No barriers Tie Loader Present: Not Applicable The Following Physical Limitations [...] Department of THORACIC CLINIC. documented in this encounterSumma Health Wadsworth [facility]05-28-2024 History of Present illness Narrative* Mariam Sy, Nuclear Tech - 11/12/2023 10:00 AM EDT RADIOLOGY SERVICE PROGRESS NOTE SERVICE DATE: 11/12/2023 [...] PATIENT PRESENTS WITH AN IMPLANTABLE OR ATTACHED TELEVISION REPORTER: No CREATININE: Creatinine Date Value Ref Range [...] e.g. those with acute kidney injury, the eGFRmay not accurately reflect actual GFR. P.O.C.T. RESULTS: N/A November 12, [address] PERFORMED: No IV SITE: Ambulatory: A peripheral IV was started in the Left hand with a Angio cath: 24 gauge. POST EXAM PIV STATUS: Discontinued PROCEDURE TYPE: NM Stress: 11.8 mCi [id number] was administered IV for Rest Imaging at 10:18AM by GRECIA BARAJAS. 41.8 mCi [id number] was administered IV for Stress Imaging at 1118 by Mariam Patterson ADMINISTRATION TIME: PATIENT DISCHARGED TO: Ambulatory patient, left [place] department area. A Diagnostic radioactive procedure has taken place, with no further precautions necessary other than routine body substance precautions. More information regarding radiation safety can be found usingthis link: [email or web address]%20Nuclear%20Medicine%20Procedures.[email or web address] SIGNATURE: RT Lebron(R) PATIENT NAME: Sav Raymundo DATE: November 12, 2023 TIME: 10:20 AM PAGER/CONTACT #: * Vibha Dempsey RN - 11/12/2023 10:00 AM EDT RADIOLOGY SERVICE PROGRESS NOTE SERVICE DATE: 11/12/2023 SERVICE TIME: 11:14 AM PATIENT IDENTITY VERIFICATION COMPLETED USING TWO (2) STANDARD IDENTIFIERS: Name and Date of confirmed by patient verbally and Name and Date of confirmed by identification band PATIENT GENDER DATA: male ALLERGIES: Reviewed and unchanged MEDICATIONS REVIEWED BY: Engineering Team Supervisor PROCEDURE TYPE: NM STRESS: 0.4 mg of Lexiscan was administered IV at 1018 by Vibha Dempsey RN . Reversal agent used: None. Expiration date: 06/2025 Lot#: [id number] IV SITE: Ambulatory: A Saline lock was inserted per protocol POST EXAM PIV STATUS: Discontinued PATIENT DISCHARGED TO: Ambulatory patient, left NM department area. A Diagnostic radioactive procedure has taken place, with no further precautions necessary other than routine body substance precautions. More information regarding radiation safety can be found usingthis link: [email or web address] 20Diagnostic%20Nuclear%20Medicine%20Procedures.pdf SIGNATURE: Vibha Dempsey RN PATIENT NAME: Sav Raymundo DATE: November 12, 2023 TIME: 11:14 AM PAGER/CONTACT #: documented in this encounterSum[facility] History of Present illness Narrative* Lacey Bermeo RT(R) - 11/12/2023 9:00 AM EDT Radiology Service Progress Note PATIENT NAME: Sav Raymundo DATE OF SERVICE: November 12, 2023 TIME: 8:12 AM PATIENT IDENTITY VERIFICATION COMPLETED USING TWO [...] PATIENT PRESENTS WITH AN IMPLANTABLE OR ATTACHED TELEVISION REPORTER: No RADIOLOGY DEPARTMENT: General X-ray: Exam(s) Completed: Chest X-Ray PERIPHERAL IV DATA: Not applicable SIGNED BY: RT Hudson(R) November 12, 2023 8:12 AM documented in this encounterSumma Health [facility]05-23-2024 Telephone encounter Note * Telephone Encounter - Patricia Bermudez RN - 11/07/2023 1:13 PM EDT patient notes that he has increasing cough and is working with local pulm/pcp to ge tback on inhaler and prednisone burst to assist (normaly 3 days) reviwed that this is ok but should be off steroids5-7 days at minimum prior to lung surgery 6/5 pt voiced understanding Patricia Bermudez RN [facility]05-23-2024 Miscellaneous Notes* Telephone Encounter - Patricia Bermudez RN - 11/07/2023 1:13 PM EDT patient notes that he has increasing cough and is working with local pulm/pcp to ge tback on inhaler and prednisone burst to assist (normaly 3 days) reviwed that this is ok but should be off steroids5-7 days at minimum prior to lung surgery 6/5 pt voiced understanding Patricia Bermudez RN documented in this encounterSumma Health [facility]05-13-2024 History of Present illness Narrative* Patricia Bermudez RN - 10/28/2023 2:20 PM EDT Spoke with patient and answered pre-operative questions including recovery time frames and surgicalschedule timing. Is patient on blood thinners: asa 81mg Has patient had blood products in the last 3 months: no Is the patient on any multivitamins or supplements: no right vats biopsy/pleurodesis cs =2.5 los 2-3 OR 11/20/2023 TCI with NMST PFT, 6MWT No other questions at this time. Patricia Bermudez MSN, RN Nurse Dinkey Locomotive Operator Thoracic Surgery [facility] * Patricia Bermudez RN - 10/25/2023 11:43 AM EDT October 25, 2023 11:43 AM left message on patient mobile phone to discuss surgical planning, await call back. Tentative plans for: OR 11/20/2023 pending patient acceptance Patricia Bermudez RN documented in this encounterSumma Health [facility]05-10-2024 History of Present illness Narrative* Ronaldo Flood MD, PhD - 10/25/2023 10:26 AM EDT [facility] STAFF PHYSICIAN NOTE OF PERSONAL INVOLVEMENT IN CARE I have reviewed the documentation obtained and documented by the Resident and I have personally performed a face to face assessment of the patient and have personally participated in the mittal components of the visit which includes medical decision making.. I have discussed the case and management ofthe patient's care. I wish to add the following findings which have been dictated and will be communicated back to the requesting physician. STAFF PHYSICIAN: Ronaldo Flood MD, PhD DATE OF SERVICE: October 24, 2023 * Mark Malone MD - 10/24/2023 12:00 PM EDT Images from the original note were not included. [facility] THORACIC SURGERY OUTPATIENT CONSULT NOTE Sav Raymundo [id number] Requesting Provider: Dr. Calin Clemente Thoracic Physician: Ronaldo Flood MD Chief Complaint: R pleural effusion Impression: Sav Raymundo is a 73 year old White male with PMH of HTN, hyperlipidemia, gout, GERDreferred by Dr. Calin Clemente for an opinion regarding management of Pleural [...] hyperlipidemia, gout, GERD referred by Dr. Calin Clemente for an opinion regarding management of Pleural [...] pericardial effusion seen on imaging and on ECHOthat was done in 09/03 this year, otherwise with good cardiac function(pericardial effusion almost co mpletely resolved on last CT). Imaging has also [...] by: Mark Malone MD documented in this encounterSumma Health [facility]05-06-2024 Telephone encounter Note * Telephone Encounter - Jahaira Wood - 10/21/2023 11:41 AM EDT Received ED visit notes 10/18/23 from [facility] Records scanned in [facility] CTA Chest and Chest XR imaging requested from [facility] Jahaira Wood, clinic administrator [facility]05-06-2024 Miscellaneous Notes* Telephone Encounter - Jahaira Wood - 10/21/2023 11:41 AM EDT Received ED visit notes 10/18/23 from [facility] Records scanned in [facility] CTA Chest and Chest XR imaging requested from [facility] Jahairara Wood clinic administrator * Telephone Encounter - Patricia Bermudez RN - 10/21/2023 10:08 AM EDT Images from the original note were not included. Thoracic Surgery Consultation - review of records for appointment scheduling Received medical records from the office of Calin Clemente [address] [place], [place] [id number] Patient is being referred to Ronadlo Flood MD, PhD by Calin Clemente for Pleural Effusion Outside hospital records scanned Pathology: Procedures: right thoracentesis 10/01/23 520ml thoracentesis 09/04/[address] right [address] chest done at [place] [facility] for Shortness of breath - pt to bring imaging disc CT ( abd, pelvis): 09/12/23 Cardiopulmonary Testing PFT's/Six: requested Cardiac: echo 09/04/23 Office Notes/Consults 10/09/2023 [facility] 09/25/[address] clemente History of: No family history on file. No past medical history on file. No past surgical history on file. Social History Tobacco Use Smoking status: Never Smokeless tobacco: Never Request consult with dr flood 10/24/2023 @ 12, pt aware and agreeable Patricia Bermudez, EVAN * Telephone Encounter - Jahaira Wood - 10/16/2023 9:16 AM EDT LOCAL PATIENT Received Fax from Dr. Calin Clemente Sav Raymundo is being referred to Ronaldo Flood M.D., Ph. D. by Calin Clemente [address] [place], [place] [id number] Patient diagnosis/Reason for consult: Pleural Effusion Recurrent Referral triage process explained: Yes Patient will receive a call from Thoracic NPM after triage review with surgeon to discuss any additional testing and/or consults that will be scheduled. Pt will then receive a call from our scheduling office for scheduling. Please call pt at [phone]. Patient was informed consultation could be at [place] or [facility] [place]: No Patient Registration: Registration complete/updated: yes Insurance card(s) scanned in [facility] with in the past year: Yes: Date: 10/16/23 Pt's MyChart is inactive. Ok to communicate to pt via [employer] not asked Medical Records: Records in [facility] (internal [facility] records): No Imaging in Epic (internal [facility] records): No Care Everywhere - queried yes, downloaded Yes Linked Outside Organizations (list): [facility] Records Requested: no Date: N/A Outside Hospital(s) requested records from: Dr. Clemente Received: yes Uploaded: Yes. Waiting on additional records: No. Missing (list): N/A OSH Pathology Slides Requested: no Date: N/A Outside Hospital(s) slides requested from: n/a OS Radiology Imaging Requested: yes Date: October 16, 2023 Outside Hospital(s) requested imaging from: [facility]. Imaging will be received via Electronic Transfer Received: Yes Imaging uploaded: Yes Waiting on additional: No Missing (list): n/a Additional providers added to Care Teams: Yes Additional Notes/Comments: Pt's spouse states pt is waiting to be scheduled for another CT Chest locally. Enct routed to: Margaret Vasquez NPM for Triage Jahaira Wood, clinic administrator documented in this encounterSumma Health [facility]05-06-2024 Telephone encounter Note * Telephone Encounter - Patricia Bermudez RN - 10/21/2023 10:08 AM EDT Images from the original note were not included. Thoracic Surgery Consultation - review of records for appointment scheduling Received medical records from the office of Calin Clemente [address] [place] [address] Patient is being referred to Ronaldo Flood MD, PhD by Calin Clemente for Pleural Effusion Outside hospital records scanned Pathology: Procedures: right thoracentesis 10/01/23 520ml thoracentesis 09/04/23 right [address] chest done at [place] [facility] for Shortness of breath - pt to bring imaging disc CT ( abd, pelvis): 09/12/23 Cardiopulmonary Testing PFT's/Six: requested Cardiac: echo 09/04/23 Office Notes/Consults 10/09/2023 [facility] 09/25/[address] samsa History of: No family history on file. No past medical history on file. No past surgical history on file. Social History Tobacco Use Smoking status: Never Smokeless tobacco: Never Request consult with dr flood 10/24/2023 @ , pt aware and agreeable Patricia Bermudez, RN [facility]05-01-[facility]24 Telephone encounter Note* Telephone Encounter - Jahaira Wood - 10/16/2023 9:16 AM EDT LOCAL PATIENT Received Fax from Dr. Calin Clemente Sav Raymundo is being referred to Ronaldo Flood M.D., Ph. D. by Calin Celmente [address] [place] [address] Patient diagnosis/Reason for consult: Pleural Effusion Recurrent Referral triage process explained: Yes Patient will receive a call from Thoracic NPM after triage review with surgeon to discuss any additional testing and/or consults that will be scheduled. Pt will then receive a call from our scheduling office for scheduling. Please call pt at [phone]. Patient was informed consultation could be at [place] or [facility]: No Patient Registration: Registration complete/updated: yes Insurance card(s) scanned in [facility] with in the past year: Yes: Date: 10/16/23 Pt's [employer] is inactive. Ok to communicate to pt via [employer] not asked Medical Records: Records in [facility] (internal CC records): No Imaging in [facility] (internal [facility] records): No Care Everywhere - queried yes, downloaded Yes Linked Outside Organizations (list): [facility] Records Requested: no Date: N/A Outside Hospital(s) requested records from: Dr. Clemente Received: yes Uploaded: Yes. Waiting on additional records: No. Missing (list): N/A OSH Pathology Slides Requested: no Date: N/A Outside Hospital(s) slides requested from: n/a OS Radiology Imaging Requested: yes Date: October 16, 2023 Outside Hospital(s) requested imaging from: [facility]. Imaging will be received via Electronic Transfer Received: Yes Imaging uploaded: Yes Waiting on additional: No Missing (list): n/a Additional providers added to Care Teams: Yes Additional Notes/Comments: Pt's spouse states pt is waiting to be scheduled for another CT Chest locally. Enct routed to: Yes, Margaret NPM for Triage Jahaira Wood, clinic administrator [facility]04-30-2024 Telephone encounter Note* Telephone Encounter - Sol Desouza - 10/15/2023 4:06 PM EDTSummary: CARDIO THORACIC SURG Patient: Sav Raymundo Date of : 1950 Patient phone number: [phone] Referring Provider for the encounter: Calin Clemente Requesting Provider: Dr Ronaldo Flood Reason for requesting visit (RFV/signs and symptoms/diagnosis): pleural effusion recurment . Person calling: Via RP FAX Return call to: self Medical Records/Insurance Card scanned into [employer]: Comments: [facility]04-30-2024 Miscellaneous Notes* Telephone Encounter - Sol Desouza - 10/15/2023 4:06 PM EDTSummary: CARDIO THORACIC SURG Patient: Sav Raymundo Date of : 1950 Patient phone number: [phone] Referring Provider for the encounter: Calin Clemente Requesting Provider: Dr Ronaldo Flood Reason for requesting visit (RFV/signs and symptoms/diagnosis): pleural effusion recurment . Person calling: Via RP FAX Return call to: self Medical Records/Insurance Card scanned into [employer]: Comments: documented in this encounterSumma Health W[facility]02-06-2024 Evaluation note* Encounter Date Diagnosis Assessment Notes Treatment Notes Treatment Clinical Notes Jul, Subacute cough (ICD-10 - R05.2) Continue treatment of any PND and GERD. Continue Mucinex DM. Trial of Prednisone and Albuterol. Jul, Primary hypertension (ICD-10 - I10) This patient is instructed to consume a healthy, low-fat, low-salt diet. They are also encouraged to continue exercise to achieve/maintain a normal BMI. [employer] Other 01-24-2024 Evaluation note* Encounter Date Diagnosis Assessment Notes Treatment Notes Treatment Clinical Notes Jun, Subacute cough (ICD-10 - R05.2) [employer] Other 01-21-2024 Evaluation note* Encounter Date Diagnosis Assessment Notes Treatment Notes Treatment Clinical Notes Jun, Subacute cough (ICD-10 - R05.2) [employer] Other 01-09-2024 Evaluation note* Encounter Date Diagnosis Assessment Notes Treatment Notes Treatment Clinical Notes Jun, Primary hypertension (ICD-10 - I10) [employer] Other 11-21-2023 Evaluation note* Encounter Date Diagnosis Assessment Notes Treatment Notes Treatment Clinical Notes Apr, Acute bronchitis due to other specified organisms (ICD-10 - J20.8) [employer] Other 11-08-2023 Evaluation note* Encounter Date Diagnosis Assessment Notes Treatment Notes Treatment Clinical Notes Apr, Primary hypertension (ICD-10 - I10) [employer] Other 11-06-2023 Evaluation note* Encounter Date Diagnosis [...] specific antigen) (ICD-10 - Z12.5) Yealry PSA [employer] Other 11-01-2023 Evaluation note* Encounter Date Diagnosis Assessment Notes Treatment Notes Treatment Clinical Notes Apr, Screening PSA (prostate specific antigen) (ICD-10 - Z12.5) Apr, Hyperlipidemia type II (ICD-10 - E78.01) Apr, Gastro-esophageal reflux disease with esophagitis, without bleeding (ICD-10 - K21.00) Apr, Fatigue, unspecified type (ICD-10 - R53.83) Apr, High risk medication use (ICD-10 - Z79.899) [facility] Other 08-28-2023 History of Present illness Narrative* Margie Edouard, - 02/11/2023 2:00 PM EDT Telehealth Visit Via Phone Call Patient: Sav Raymundo Date of : 1950 (72 y.o. male) Patient Patient Location: [address] [place] [address] [place] [address] Provider Location: [facility] I discussed risks, benefits and [...] there are inherent diagnostic limitations compared to fuox-ef-kvzl evaluations. We elected toproceed with the telephone [...] meloxicam. He typically gets this from Dr. Huff. However, I am happy to provide him [...] expedite correspondence this note was generated by [employer] voice recognition software. Somegrammatical or spelling errors may occur using the system. documented in this [id number] History of Present illness Narrative* Nena Huff, DO - 01/16/2023 10:[address] [facility] [address] [place], [place] [address] Patient Name: Sav Raymundo Patient Age: 72 [...] KNEE ARTHROPLASTY; Surgeon: Karthik Calloway MD; Location: [facility] OR; Service: ARTHROPLASTY KNEE TOTAL Right 06/25/2016 Procedure: RIGHT TOTAL KNEE ARTHROPLASTY ; Surgeon: Karthik Calloway MD; Location: [facility] OR; Service: BASAL CELL CARCINOMA [...] mouth every morning . vit A-vit C-vit A-etgr-iznwun 7,160-113-100 dgws-jx-fawp Tab Take 1 tablet by mouth every [...] Imaging: X-rays of the left knee from [facility] taken today are reviewed. My personal interpretation [...] questions or concerns regarding their care. Nena Huff Note: To expedite correspondence this note was generated by [employer] voice recognition software. Somegrammatical or spelling errors may occur using the system. documented in this [id number] Evaluation note* Encounter Date Diagnosis Assessment Notes Treatment Notes Treatment Clinical Notes Dec, Laceration of scalp, initial encounter (ICD-10 - S01.01XA) Cleanse scalp w/ soap and water [employer] Other 06-05-2023 History of Present illness Narrative* Margie Edouard DO - 11/19/2022 1:56 PM EDT 11/19/22 Sav [...] the left great toe does not apparently enterprise integration architect the ground. IMAGING: Please see dictated report. ASSESSMENT: Left hallux rigidus Left metatarsalgia PLAN: I performed a left first MTP joint injection at today's visit. Please see separate procedure note. I recommended that we proceed with custom orthotics with a Eaton's extension, built-in metatarsal pad. [facility] orthoped[facility] We discussed the fact that he would have to be nonweightbearing following the procedure. Thepatient would like to hold off on any surgery at today's visit. We will see him back in 6 weeks. Radiographs next visit: None Margie Edouard DO Orthopedic Foot and Ankle Surgeon To expedite correspondence, this note was generated by [employer] voice recognition software. Some grammatical or spelling errors may occur using this system. documented in this [id number] History of Present illness Narrative* Grecia Faith PA-C - 10/08/2022 2:36 PM EDT 10/08/22 [...] visit: Views: None WB Status: N/A Grecia Faith PA-C Orthopedic Foot and Ankle Surgery To expedite correspondence, this note was generated by [employer] voice recognition software. Some grammatical or spelling errors may occur using this system. documented in this [id number] History of Present illness Narrative* Margie Edouard, [...] the left great toe does not apparently enterprise integration architect the ground. IMAGING: Please see dictated report. [...] expedite correspondence, this note was generated by [employer] voice recognition software. Some grammatical or spelling errors may occur using this system. documented in this encounterSt[facility] Hospital[facility]* Diagnosis Status post total knee replacement, bilateral- Primary documented in this encounter [facility] note* Diagnosis Hallux rigidus of left foot- Primary Eaton's metatarsalgia, left documented in this encounter [facility] note* Diagnosis Hallux rigidus of left foot- Primary Metatarsalgia, left foot documented in this encounter [facility] note* Diagnosis Hallux rigidus of left foot- Primary documented in this encounter [facility] note* Diagnosis Status post total knee replacement, bilateral- Primary documented in this encounter [facility] note* Diagnosis Hallux rigidus of left foot- Primary documented in this encounter [facility] noteNo [facility] [employer] Other Evaluation note* Diagnosis Status post total knee replacement, bilateral- Primary documented in this encounter [facility] note* Diagnosis Onset Date Resolution Status Nausea & vomiting acute Primary hypertension acute Subacute cough acute Dyspnea on effort noneactive Murmur noneactive [facility] Work Phone: Evaluation note* Diagnosis Pleural effusion- Primary Unspecified pleural effusion documented in this encounter [facility] note* Diagnosis Obesity, Class I, BMI 30-34.9- Primary Obesity, unspecified Pleural effusion Unspecified pleural effusion documented in this encounter [facility] note* Diagnosis Pleural effusion- Primary Unspecified pleural effusion Encounter for other preprocedural examination Pleural effusion Unspecified pleural effusion Encounter for other preprocedural examination documented in this encounter [facility] note* Diagnosis Pleural effusion- Primary Unspecified pleural effusion Pleural effusion Unspecified pleural effusion Encounter for other preprocedural examination documented in this encounter [facility]* Diagnosis Pleural effusion Unspecified pleural effusion Encounter for other preprocedural examination Pleural effusion Unspecified pleural effusion Encounter for other preprocedural examination [facility]* Diagnosis Surgery follow-up- Primary Follow-up examination, following unspecified surgery [facility]* Diagnosis Follow-up exam- Primary Unspecified follow-up examination documented in this encounter [facility] note* Diagnosis Surgery follow-up Follow-up examination, following unspecified surgery [facility]* Diagnosis Follow-up exam Unspecified follow-up examination documented in this encounter [facility]* Diagnosis Pleural effusion Unspecified pleural effusion [facility] this [facility]* Diagnosis Pleural effusion Unspecified pleural effusion [facility] this [facility]* Diagnosis Follow-up examination after lung surgery- Primary Follow-up examination, following other surgery Pleural effusion Unspecified pleural effusion [facility]* Diagnosis Follow-up examination after lung surgery- Primary Follow-up examination, following other surgery Pleural effusion Unspecified pleural effusion Pleural effusion Unspecified pleural effusion [facility] this [facility]* Diagnosis Pleural effusion- Primary Unspecified pleural effusion documented in this encounter [facility]* Diagnosis Chronic cough- Primary Cough Pleural effusion Unspecified pleural effusion documented in this encounter [facility]* Diagnosis Recurrent pleural effusion- Primary History of pericarditis Personal history of other diseases of circulatory system Chronic cough Cough documented [facility] this encounter [facility]* Diagnosis Recurrent 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 Unspecified pleural effusion [facility] Diagnosis Recurrent 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- Primary Unspecified pleural effusion Chronic cough Cough Elevated C-reactive protein (CRP) Elevated sedimentation rate [facility] Diagnosis Pleural effusion- Primary Unspecified pleural effusion Pleural effusion Unspecified pleural effusion [facility] Diagnosis Follow-up examination after lung surgery- Primary Follow-up examination, following other surgery Pleural effusion Unspecified pleural effusion Bilateral lower extremity edema Edema Anasarca Edema Nausea vomiting and diarrhea Diarrhea [facility] Diagnosis Pleural effusion- Primary Unspecified pleural effusion Elevated sed rate Elevated sedimentation rate Elevated C-reactive protein (CRP) documented in this encounter [facility] note* Diagnosis Recurrent 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- Primary Unspecified pleural effusion Primary hypertension Unspecified essential hypertension Pleural effusion Unspecified pleural effusion Chronic cough Cough Anemia, unspecified type Hypomagnesemia Disorders of magnesium metabolism documented in this encounter [facility] note* Diagnosis Recurrent 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- Primary Unspecified pleural effusion History of pericarditis Personal history of other diseases of circulatory system documented in this encounter [facility] note* Diagnosis Pleural effusion Unspecified pleural effusion documented in this encounter [facility] note* Diagnosis Chronic cough Cough Pleural effusion Unspecified pleural effusion documented in this encounter [facility] note* Diagnosis Pleural effusion- Primary Unspecified pleural effusion documented in this encounter [facility] note* Diagnosis Chronic cough- Primary Cough Pleural effusion Unspecified pleural effusion Interstitial pulmonary disease (HCC) Postinflammatory pulmonary fibrosis documented in this encounter [facility] note* Diagnosis Pleural effusion- Primary Unspecified pleural effusion Interstitial pulmonary disease (HCC) Postinflammatory pulmonary fibrosis documented in this encounter [facility] note* Diagnosis Chronic cough- Primary Cough [...] Postinflammatory pulmonary fibrosis documented in this encounter [facility] note* Diagnosis Chronic bronchitis, unspecified chronic bronchitis type (HCC) documented in this encounter [facility] note* Diagnosis Interstitial pulmonary disease (HCC) Postinflammatory pulmonary fibrosis documented in this encounter [facility] note* Diagnosis Pericarditis, unspecified chronicity, unspecified type documented in this encounter [facility] note* Diagnosis Pleural effusion- Primary Unspecified pleural effusion Elevated sed rate Elevated sedimentation rate Elevated C-reactive protein (CRP) Diarrhea, unspecified type documented in this encounter [facility] note* Diagnosis Diarrhea, unspecified type Abdominal pain, unspecified abdominal location [facility] Diagnosis Abdominal pain, unspecified abdominal location- Primary Diarrhea, unspecified type Diarrhea, unspecified type Abdominal pain, unspecified abdominal location documented in this encounter [facility] note* Diagnosis Nausea and vomiting, unspecified vomiting type documented in this encounter [facility] note* Diagnosis Recurrent 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- Primary Unspecified pleural effusion Anasarca Edema Chronic cough Cough Primary hypertension Unspecified essential hypertension documented in this encounter [facility] note* Diagnosis Pleural effusion Unspecified pleural effusion documented in this encounter [facility] note* Diagnosis Pleural effusion- Primary Unspecified pleural effusion Chronic cough Cough Lung nodule Solitary pulmonary nodule Lymphocytic colitis Other and unspecified noninfectious gastroenteritis and colitis Pleural effusion Unspecified pleural effusion documented in this encounter [facility] note* Diagnosis Pleural effusion- Primary Unspecified pleural effusion Elevated sed rate Elevated sedimentation rate Elevated C-reactive protein (CRP) documented in this encounter [facility] note* Diagnosis Lymphocytic colitis- Primary Other and unspecified noninfectious gastroenteritis and colitis documented in this encounter [facility] note* Diagnosis Recurrent 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- Primary Unspecified pleural effusion Primary hypertension Unspecified essential hypertension Lymphocytic colitis Other and unspecified noninfectious gastroenteritis and colitis Elevated C-reactive protein (CRP) Exocrine pancreatic insufficiency Other specified disease of pancreas Hypokalemia Hypopotassemia Anasarca Edema [facility]* Diagnosis Pleural effusion- Primary Unspecified pleural effusion documented in this encounter [facility] note* Diagnosis Pleural effusion- Primary Unspecified pleural effusion Pleuritis Pleurisy without mention of effusion or current tuberculosis Lymphocytic colitis Other and unspecified noninfectious gastroenteritis and colitis Pericardial effusion (noninflammatory) Interstitial pulmonary disease (HCC) Postinflammatory pulmonary fibrosis documented in this encounter [facility] note* Diagnosis Pleural effusion [J90]- Primary Unspecified pleural effusion [facility]* Diagnosis Pleural effusion Unspecified pleural effusion documented in this encounter [facility] note* Diagnosis Pleural effusion- Primary Unspecified pleural effusion Muscle cramps Cramp of limb Anasarca Edema Hypomagnesemia Disorders of magnesium metabolism Lymphocytic colitis Other and unspecified noninfectious gastroenteritis and colitis documented in this encounter [facility] note* Diagnosis Fatigue, unspecified type- Primary [facility]* Diagnosis Pleural effusion- Primary Unspecified pleural effusion [facility]* Diagnosis Pleural effusion- Primary Unspecified pleural effusion Pleuritis Pleurisy without mention of effusion or current tuberculosis Pericardial effusion (noninflammatory) Chronic cough Cough documented [facility]* Diagnosis Pleural effusion- Primary Unspecified pleural effusion documented in this encounter [facility] note* Diagnosis Pleural effusion Unspecified pleural effusion documented in this encounter [facility] note* Diagnosis Early dry stage nonexudative age-related macular degeneration of both eyes- Primary Dry eyes Unspecified tear film insufficiency Blepharitis of upper and lower eyelids of both eyes, unspecified type Bilateral posterior capsular opacification Unspecified after-cataract Chalazion of left upper eyelid documented in this encounter [facility] [place], operated by [facility] note* Diagnosis Pleural effusion- Primary Unspecified pleural effusion documented in this encounter [facility] note* Diagnosis Recurrent 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- Primary Unspecified pleural effusion documented in this encounter [facility] note* Diagnosis Lymphocytic colitis- Primary Other and unspecified noninfectious gastroenteritis and colitis Esophageal dysphagia Dysphagia, pharyngoesophageal phase documented in this encounter [facility] note* Diagnosis Seborrheic keratosis- Primary Actinic keratosis Stasis dermatitis of both legs Lentigines documented in this encounter [facility] [place], operated by [facility] note* Diagnosis Recurrent 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- Primary Unspecified pleural effusion [facility]* Diagnosis Recurrent 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- Primary Unspecified pleural effusion documented in this encounter [facility] note* Diagnosis Recurrent 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- Primary Unspecified pleural effusion Hypokalemia Hypopotassemia Lymphocytic colitis Other and unspecified noninfectious gastroenteritis and colitis Anemia, unspecified type Chronic insomnia Insomnia, unspecified Bronchiolar disease Other diseases of trachea and bronchus documented [facility]* Diagnosis Esophageal dysphagia- Primary Dysphagia, pharyngoesophageal phase Bronchiolar disease Other diseases of trachea and bronchus documented [facility]* Diagnosis Cough, unspecified type documented [facility]* Diagnosis Elevated BUN- Primary Other abnormal blood chemistry Elevated serum creatinine Other nonspecific findings on examination of blood Decreased GFR Nonspecific abnormal results of kidney function study Elevated alkaline phosphatase level Other nonspecific abnormal serum enzyme levels [facility] Diagnosis FLOYD (acute kidney injury)- Primary Acute kidney failure, unspecified Elevated BUN Other abnormal blood chemistry Elevated serum creatinine Other nonspecific findings on examination of blood Decreased GFR Nonspecific abnormal results of kidney function study Lymphocytic colitis Other and unspecified noninfectious gastroenteritis and colitis Pleural effusion, not elsewhere classified Generalized edema Edema [facility]* Diagnosis Screening for genitourinary condition Screening for other and unspecified genitourinary condition documented in this [facility]* Diagnosis Cramp and spasm documented in this [facility]* Diagnosis Serositis (HCC)- Primary Other specified disorder of intestines documented in this [facility]* Diagnosis Generalized abdominal pain- Primary Abdominal pain, generalized Other ascites [facility] Diagnosis Elevated alkaline phosphatase level Other nonspecific abnormal serum enzyme levels [facility] Diagnosis Pleural effusion- Primary Unspecified pleural effusion [facility] Diagnosis Pleural effusion Unspecified pleural effusion Encounter for other preprocedural examination [facility] Diagnosis Anasarca- Primary Edema Recurrent 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 Unspecified pleural effusion Hepatomegaly Hiatal hernia Diaphragmatic hernia without mention of obstruction or gangrene Chronic gastritis without bleeding, unspecified gastritis type Hypomagnesemia Disorders of magnesium metabolism [facility] Diagnosis Pleural effusion Unspecified pleural effusion [facility] Diagnosis Extremity cyanosis- Primary Other peripheral vascular disease [facility] Diagnosis Pleural effusion- Primary Unspecified pleural effusion [facility] this [facility] Diagnosis Pleural effusion- Primary Unspecified pleural effusion Pleuritis Pleurisy without mention of effusion or current tuberculosis Pericardial effusion (noninflammatory) (HCC) Lymphocytic colitis Other and unspecified noninfectious gastroenteritis and colitis Other ascites documented in this [facility]* Diagnosis Pleural effusion, not elsewhere classified documented in this [facility]* Diagnosis Hepatomegaly documented in this [facility] Diagnosis Cramp and spasm [facility] Diagnosis Mixed connective tissue disease (HCC)- Primary Other specified diffuse disease of connective tissue Urge incontinence Hypokalemia Hypopotassemia Recurrent 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 Unspecified pleural effusion Muscle cramps Cramp of limb Hiatal hernia Diaphragmatic hernia without mention of obstruction or gangrene [facility] this [facility] Diagnosis Elevated serum creatinine- Primary Other nonspecific findings on examination of blood Elevated alkaline phosphatase level Other nonspecific abnormal serum enzyme levels documented in this [facility] Diagnosis Pleural effusion, not elsewhere classified Elevated alkaline phosphatase level Other nonspecific abnormal serum enzyme levels documented in this [facility]* Diagnosis Cramp and spasm Elevated alkaline phosphatase level Other nonspecific abnormal serum enzyme levels documented in this [facility]* Diagnosis Pleural effusion- Primary Unspecified pleural effusion Pleuritis Pleurisy without mention of effusion or current tuberculosis Pericardial effusion (noninflammatory) (HCC) History of pericarditis Personal history of other diseases of circulatory system Lymphocytic colitis Other and unspecified noninfectious gastroenteritis and colitis Elevated alkaline phosphatase level Other nonspecific abnormal serum enzyme levels documented in this [facility]* Diagnosis Hypomagnesemia- Primary Disorders of magnesium metabolism Dyslipidemia Other and unspecified hyperlipidemia Anemia, unspecified type [facility] Diagnosis Other ascites- Primary [facility] Diagnosis Other ascites [facility] Diagnosis FLOYD (acute kidney injury)- Primary Acute kidney failure, unspecified Screening for genitourinary condition Screening for other and unspecified genitourinary condition Elevated serum creatinine Other nonspecific findings on examination of blood Decreased GFR Nonspecific abnormal results of kidney function study Generalized edema Edema Pleural effusion, not elsewhere classified documented [facility] this [facility] Diagnosis FLOYD (acute kidney injury)- Primary Acute kidney failure, unspecified Screening for genitourinary condition Screening for other and unspecified genitourinary condition Elevated serum creatinine Other nonspecific findings on examination of blood Decreased GFR Nonspecific abnormal results of kidney function study Generalized edema Edema Pleural effusion, not elsewhere classified Screening for genitourinary condition Screening for other and unspecified genitourinary condition documented in this [facility]* Diagnosis 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, stage 2 (CMS-HCC)- Primary Cellulitis of left foot Pain in toe of left foot Pain in soft tissues of limb Difficulty walking Difficulty in walking documented in this encounter [facility]* Diagnosis 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, stage 2 (CMS-HCC)- Primary Cellulitis of left foot Pain in toe of left foot Pain in soft tissues of limb Difficulty walking Difficulty in walking documented in this encounter [facility]* Diagnosis 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, stage 2 (CMS-HCC)- Primary Cellulitis of left foot Pain in toe of left foot Pain in soft tissues of limb Difficulty walking Difficulty in walking documented in this encounter [facility] HealthcareHistory general Narrative - Reported* Type Description Date Medical History 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 Medical History Benign prostatic hyp erplasia with lower urinary tract symptoms Medical History Hyperlipidemia type II Medical History Gastro-esophageal re flux disease with esophagitis, without bleeding Surgical History both knee replaced Surgical History hand surgery Hospitalization History SEE ABOVE [employer] Other Reason for referral (narrative)* Outpatient Procedure (Routine) - Authorized Specialty Diagnoses / Procedures Referred By Kelly stein Referred [facility] Diagnoses Pleural effusion Encounter for other preprocedural examination Procedures SIX MINUTE WALK CARDIOPULMONARY EXERCISE STRESS Ronaldo Flood MD, PhD [address] [place] [address] Res[facility] [address] [address] Referral ID Status Reason Start Date Expiration Date Visits Requested Visits Authorized [id number] Authorized Auto-Generat ed Referral 10/28/2023 11/26/2024 1 1 * Outpatient Procedure (Routine) - Authorized Specialty Diagnoses / Procedures Referred By Kelly stein Ref[facility] Diagnoses Pleural effusion Encounter for other preprocedural examination Procedures ECG COMPLETE ECG ROUTINE ECG W/LEAST 12 LDS W/I&R Ronaldo Flood MD, PhD [address] [employer] [address] [place] [address] [facility] [address] [address] Referral ID Status Reason Start Date Expiration Date Visits Requested Visits Authorized [id number] Authorized Auto-Generat ed Referral 10/28/2023 10/23/2024 1 1 * Diagnostic Procedure Only (Routine) - Authorized Specialty Diagnoses / Procedures Referred By Anaac t Referred To Contact [facility] Diagnoses Pleural effusion Encounter for other preprocedural examination Procedures NM CARDIAC PERF STRESS/EXERCISE MYOCARDIAL SPECT MULTIPLE STUDIES Ronaldo Flood MD, PhD [address] [place] [address] [facility] [address] [place] [address] Referral ID Status Reason Start Date Expiration Date Visits Requested Visits Authorized [id number] Authorized Auto-Generat ed Referral 10/28/2023 11/22/2024 1 1 * Outpatient Procedure (Routine) - Authorized Specialty Diagnoses / Procedures Referred By Contac t Referred [facility] Diagnoses Pleural effusion Encounter for other preprocedural examination Procedures LUNG DIFFUSION CAPACITY (DLCO) DIFFUSING CAPACITY Ronaldo Flood MD, PhD [address] [place] [address] [facility] [address] [address] [place] [address] Referral ID Status Reason Start Date Expiration Date Visits Requested Visits Authorized [id number] Authorized Auto-Generat ed Referral 10/28/2023 11/22/2024 1 1 * Outpatient Procedure (Routine) - Authorized Specialty Diagnoses / Procedures [facility] Diagnoses Pleural effusion Encounter for other preprocedural examination Procedures SPIROMETRY WITH DILATOR IF OBSTRUCTED BRNCDILAT RSPSE SPMTRY PRE&POST-BRNCDILAT ADMN Ronaldo Flood MD, PhD [address] [employer] -[address] [place] [address] Respiratory [place] [id number] Referral ID Status Reason Start Date Expiration Date Visits Requested Visits Authorized [id number] Authorized Auto-Generat ed Referral 10/28/2023 11/22/2024 1 1 [facility] for referral (narrative)* Outpatient Procedure (Routine) - New Request Specialty Diagnoses / Procedures Referred By Contac t Referred To [facility] Diagnoses Chronic cough Pleural effusion Procedures SPIROMETRY WITH DILATOR IF OBSTRUCTED BRNCDILAT RSPSE SPMTRY PRE&POST-BRNCDILAT ADMN Katerina Bravo APRN.CNP [address] [place] [id number] [place] [id number] Referral ID Status Reason Start Date Expiration Date Visits Requested Visits Authorized [id number] New Request Auto-Generat ed Referral 01/06/2024 02/04/2025 1 1 * Outpatient Procedure (Routine) - New Request Specialty Diagnoses / Procedures Referred By Contac t Referred To [facility] Diagnoses Chronic cough Pleural effusion Procedures NITRIC OXIDE, EXHALED NITRIC OXIDE GAS DETERMINATION Katerina Bravo APRN.CNP [address] [place] [address] [place] [address] Referral ID Status Reason Start Date Expiration Date Visits Requested Visits Authorized [id number] New Request Auto-Generat ed Referral 01/06/2024 02/04/2025 1 1 [facility] for referral (narrative)* Outpatient Procedure (Routine) - Closed Specialty Diagnoses / Procedures Referred By Contac t Referred To [facility] Diagnoses Pleural effusion Interstitial pulmonary disease (HCC) Procedures LUNG VOLUMES Louise Cesar MD [address] [place] [phone] [address] [address] Referral ID Status Reason Start Date Expiration Date V isits Requested Visits Authorized [id number] Closed Auto-Generate d Referral 03/17/2024 04/16/2025 1 1 * Outpatient Procedure (Routine) - Closed Specialty Diagnoses / Procedures Referred By Kelly t Referred [facility] Diagnoses Chronic cough Pleural effusion Interstitial pulmonary disease (HCC) Procedures LUNG DIFFUSION CAPACITY (DLCO) DIFFUSING CAPACITY Louise Cesar MD [address] [place] [address] [address] Referral ID Status Reason Start Date Expiration Date V isits Requested Visits Authorized [id number] Closed Auto-Generate d Referral 03/17/2024 04/16/2025 1 1 * Outpatient Procedure (Routine) - Authorized Specialty Diagnoses / Procedures Referred By Kelly t Referred To Contact [facility] Diagnoses Pericarditis, unspecified chronicity, unspecified type Procedures ECHO ECHO TTHRC R-T 2D W/WOM-MODE COMPL SPEC&COLR D Louise Cesar MD [address] [place] [address] [place] [id number] Referral ID Status Reason Start Date Expiration Date Visits Requested Visits Authorized [id number] Authorized Auto-Generat ed Referral 03/17/2024 03/17/2025 1 1 * MRI/CT (Routine) - Closed Specialty Diagnoses / Procedures Referred By Kelly stein Referred To Contact CT IMAGING Diagnoses Interstitial pulmonary disease (HCC) Procedures CT CHEST W IVCON DIAGNOSTIC COMPUTED TOMOGRAPHY THORAX W/CONTRAST Louise Cesar MD [address] [place] [id number] [id number] Referral ID Status Reason Start Date Expiration Date V isits Requested Visits Authorized [id number] Closed Auto-Generate d Referral 03/17/2024 04/16/2025 1 1 [facility] for referral (narrative)* Outpatient Procedure (Routine) - Closed Specialty Diagnoses / Procedures Referred By Contac t Referred To Contact [facility] Diagnoses Pericarditis, unspecified chronicity, unspecified type Procedures ECHO ECHO TTHRC R-T 2D W/WOM-MODE COMPL SPEC&COLR D Louise Cesar MD [id number] [place] [address] Referral ID Status Reason Start Date Expiration Date V isits Requested Visits Authorized [id number] Closed Auto-Generate d Referral 03/17/2024 03/17/2025 1 1 [facility] for visit Narrative* Outpatient Procedure (Routine) - Closed Specialty Diagnoses / Procedures Referred By Contac t Referred To Contact [facility] Diagnoses Pericarditis, unspecified chronicity, unspecified type Procedures ECHO ECHO TTHRC R-T 2D W/WOM-MODE COMPL SPEC&COLR D Louise Cesar MD [id number] [place] [id number] Referral ID Status Reason Start Date Expiration Date V isits Requested Visits Authorized [id number] Closed Auto-Generate d Referral 03/17/2024 03/17/2025 1 1 [facility] for visit Narrative* Outpatient Procedure (Routine) - Closed Specialty Diagnoses / Procedures Referred By Contac t Referred To Contact [facility] Diagnoses Diarrhea, unspecified type Procedures COLONOSCOPY DIAGNOSTIC COLONOSCOPY FLX DX W/COLLJ SPEC WHEN PFRMD Sue Murillo MD [address] [place] [address] [facility] [address] [place], [place] [id number] Referral ID Status Reason Start Date Expiration Date V isits Requested Visits Authorized [id number] Closed Auto-Generate d Referral 04/20/2024 04/20/2025 1 1 [facility] for visit Narrative* Diagnostic Procedure Only (Routine) - Closed Specialty Diagnoses / Procedures Referred By Contac t Referred To Contact XR IMAGING Diagnoses Pleural effusion Procedures XR CHEST 1V DECUBITUS RIGHT RADIOLOGIC EXAM CHEST SINGLE VIEW Triston Riggs MD [address] [place] [address] Phone: tel: fax: XR IMAGING [place] [address] Referral ID Status Reason Start Date Expiration Date V isits Requested Visits Authorized [id number] Closed Auto-Generate d Referral 07/20/2024 08/19/2025 1 1 [facility] for visit Narrative* Outpatient Procedure (Routine) - Closed Specialty Diagnoses / Procedures Referred By Contac t Referred To Contact [facility] Diagnoses Esophageal dysphagia Procedures EGD DIAGNOSTIC ESOPHAGOGASTRODUODENOSC OPY TRANSORAL DIAGNOSTIC uSe Murillo MD [address] [place] [address] Phone: tel: fax: [place] [address] Referral ID Status Reason Start Date Expiration Date V isits Requested Visits Authorized [id number] Closed Auto-Generate d Referral 08/24/2024 08/24/2025 1 1 [facility] for visit Narrative* Diagnostic Procedure Only (Routine) - Closed Specialty Diagnoses / Procedures Referred By Contac t Referred To Contact US IMAGING Diagnoses Elevated alkaline phosphatase level Procedures US ABD RIGHT UPPER QUADRANT US ABDOMINAL REAL TIME W/IMAGE LIMITED Xiomara Ly APRN.STEAM TUNNEL FEEDER [address] [place] [address] Phone: tel: fax: [id number] Referral ID Status Reason Start Date Expiration Date V isits Requested Visits Authorized [id number] Closed Auto-Generate d Referral 10/15/2024 11/14/2025 1 1 [facility] for visit Narrative* Diagnostic Procedure Only (Routine) - Closed Specialty Diagnoses / Procedures Referred By Contac t Referred To Contact [facility] Diagnoses Hepatomegaly Procedures US ELASTOGRAPHY LIVER ULTRASOUND ELASTOGRAPHY [place] [address] [place] [address] Phone: tel: fax: [place] [address] Referral ID Status Reason Start Date Expiration Date V isits Requested Visits Authorized [id number] Closed Auto-Generate d Referral 11/13/2024 12/13/2025 1 1 [facility] for visit Narrative* Diagnostic Procedure Only (Routine) - Closed Specialty Diagnoses / Procedures Referred By Contac t Referred To Contact [facility] Diagnoses Other ascites Procedures US DOPPLER COMPLETE DUP-SCAN ARTL KRYSTAL ABDL/PEL/SCROT&/RPR ORGN COM Marlyn Hooper APRN.STEAM TUNNEL FEEDER [address] [place] [address] Phone: tel: fax: US IMAG[id number] Referral ID Status Reason Start Date Expiration Date V isits Requested Visits Authorized [id number] Closed Auto-Generate d Referral 02/17/2025 03/19/2026 1 1 [facility] Assessments Diagnosis Primary osteoarthritis of ri ght [...] note may be different from the original. [facility] [address] [place] [address], [facility] [address] [place], [place] [address] Patient Name: Sav Raymundo Patient Age: 66 [...] note may be different from the original. [facility] [address] [facility], [facility] [address] [place], [place] [address] Patient Name: Sav Raymundo Patient Age: 66 [...] Karthik Calloway MD in this encounter* Nena Huff, DO - 07/01/2019 10:[address] [facility] [address] [place] [address] Patient Name: Sav Raymundo Patient Age: 69 [...] KNEE ARTHROPLASTY; Surgeon: Karthik Calloway MD; Location: [facility] OR; Service: ARTHROPLASTY KNEE TOTAL Right 06/25/2016 Procedure: RIGHT TOTAL KNEE ARTHROPLASTY ; Surgeon: Karthik Calloway MD; Location: [facility] OR; Service: BASAL CELL CARCINOMA [...] file Gets together: Not on file Attends yarsanism service: Not on file Active member of [...] mouth every morning . vit A-vit C-vit E-iwfp-gfmarm (EYE VITAMIN AND MINERALS) 7,160-113-100 wdyy-ns-qdmm Tab Take 1 tablet by mouth every [...] tibialis pulses. Imaging: X-rays as per Dr. Huff's interpretation: AP, lateral and merchants view of the bilateral knees demonstrate well aligned components in good overall alignment with no interval change from most recentimaging. Crossnore view shows the patella tracks well without [...] questions or concerns regarding their care. Nena Huff Note: To expedite correspondence this note was generated by [employer] voice recognition software. Somegrammatical or spelling errors may occur using the system. documented in this encounter* Nena Huff, - 07/20/2020 2:[address] [facility] [address] [place] [address] Patient Name: Sav Raymundo Patient Age: 70 [...] KNEE ARTHROPLASTY; Surgeon: Karthik Calloway MD; Location: [facility] OR; Service: ARTHROPLASTY KNEE TOTAL Right 06/25/2016 Procedure: RIGHT TOTAL KNEE ARTHROPLASTY ; Surgeon: Karthik Calloway MD; Location: [facility] OR; Service: BASAL CELL CARCINOMA [...] file Gets together: Not on file Attends yarsanism service: Not on file Active member of [...] mg by mouth daily. vit A-vit C-vit U-rzoe-prinoo (EYE VITAMIN AND MINERALS) 7,160-113-100 mpwu-rw-nvdq Tab Take 1 tablet by mouth every [...] tibialis pulses. Imaging: X-rays as per Dr. Huff's interpretation: AP, lateral and merchants view of the bilateral knees demonstrate well aligned components in good overall alignment with no interval change from most recentimaging. Crossnore view shows the patella tracks well in [...] questions or concerns regarding their care. Nena Huff Note: To expedite correspondence this note was generated by [employer] voice recognition software. Somegrammatical or spelling errors may occur using the system. 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 Advance Directive(s) 11/12/2023 2:37 PM [...] Date/T christine father Unknown Not Specified Unknown Relationship Condition Age at Onset Recorded Date/T christine father Unknown mother Unknown Chief Complaint and Reason for Visit [...] cough Dyspnea on effort Murmur Chief Complaint Admit Date URI July 14, 2024 4 :27pm Amb Documentation August 13, 2024 11:31am Amb Documentation September 02, 2024 9:2 6am ear cleaning September 11, 2024 11: 43am Reason for Visit Admit Date Nausea & vomiting July 14, 2024 4 :27pm Viral respiratory illness July 14, 2024 4:27pm Reason for Referral Specialty Diagnoses / Procedures Referred By Contac t Referred To Contact CT IMAGING Diagnoses Pleural effusion Lung nodule Procedures CT CHEST WO IVCON DIAGNOSTIC COMPUTED TOMOGRAPHY THORAX W/O CNTRST Louise Cesar MD [address] [place] [address] Ct Imaging [place] [address] Referral ID Status Reason Start Date Expiration Date Visits Requested Visits Authorized [id number] New Request Auto-Generat ed Referral 05/18/2024 06/17/2025 1 1 Specialty Diagnoses / Procedures Referred By Contac t Referred To Contact CT IMAGING Diagnoses Diarrhea, unspecified type Abdominal pain, unspecified abdominal location Procedures CT ENTEROGRAPHY W IVCON CT ABD & PELVIS W/CONTRAST Sue Murillo MD [address] [place] [address] Ct Imaging [place] [address] Referral ID Status Reason Start Date Expiration Date V isits Requested Visits Authorized [id number] Closed Auto-Generate d Referral 04/20/2024 05/20/2025 1 1 Specialty Diagnoses / Procedures Referred By Contac t Referred To Contact Gastroenterology Diagnoses Diarrhea, unspecified type Procedures CONSULT TO GASTROENTEROLOGY OFFICE/OUTPATIENT [facility] 60 MINUTES Steffen Mccarty MD [address] [facility] [place] [phone] Referral ID Status Reason Start Date Expiration Date Visits Requested Visits Authorized [id number] Authorized PCP Requested Referral 03/30/2025 1 1 Specialty Diagnoses / Procedures Referred By Contac t Referred To Contact Rheumatology Diagnoses Pleural effusion Elevated sed rate Elevated C-reactive protein (CRP) Procedures CONSULT TO RHEUM/IMMUN DISEASE OFFICE/OUTPATIENT [facility] 60 MINUTES Tita Landry APRN.STEAM TUNNEL FEEDER [address] [phone] Referral ID Status Reason Start Date Expiration Date Visits Requested Visits Authorized [id number] Authorized PCP Requested Referral 02/04/2024 02/03/2025 1 1 Additional Source Comments Reason for Visit (unrecogniz ed section and content) Reason Comments Consult Specialty Diagnoses / Procedures Referred By Contac t Referred To Contact Nephrology Diagnoses Elevated BUN Elevated serum creatinine Decreased GFR Procedures CONSULT TO NEPHROLOGY CONSULT TO NEPHROLOGY OFFICE/OUTPATIENT [facility] MDM 60 MINUTES Xiomara Ly APRN.STEAM TUNNEL FEEDER [address] [place] [address] Phone: tel: fax: Referral ID Status Reason Start Date Expiration Date V isits Requested Visits Authorized [id number] Closed PCP Requested Referral 10/14/2024 10/14/2025 1 1 Reason Comments Established Patient Follow-Up Specialty Diagnoses / Procedures Referred By Contac t Referred To Contact Diagnoses Anasarca Procedures [address] [place] [address] IP/OBS CARE HIGH [facility] [address] [place] [address] Referral ID Status Reason Start Date Expiration Date Visits Re quested Visits Authorized [id number] 1 1 Reason Comments Follow-up Reason Comments [...] 02/11/2023 Reason Comments External Referrals/resources Reason Comments Schedule Surgery Right VATS biopsy/ p leurodesis cs=2.5 los =2-3 Reason Comments Patient Question pt not Reason Comments Pre-Op Exam Specialty Diagnoses / Procedures Referred By Contac t Referred To Contact [facility] Diagnoses Bronchiolar disease Procedures THORACENTESIS NEEDLE/CATH PLEURA W/IMAGING THORACENTESIS NEEDLE OR CATHETER ASPIRATION OF THE PLEURAL SPACE W IMAGING GUIDANCE [facility] H[address] [address] Referral ID Status Reason Start Date Expiration Date Visits Re quested Visits Authorized [id number] 1 1 Reason Comments Radiology [place] Specialty Diagnoses / Procedures Referred By Contac t Referred To Contact MOLECULAR & FUNCTIONAL IMAGING Diagnoses Pleural effusion Encounter for other preprocedural examination Procedures NM CARDIAC PERF STRESS/EXERCISE MYOCARDIAL SPECT MULTIPLE STUDIES Ronaldo Flood MD, PhD [address] [facility] [address] [place] [address] Molecular & Functional Imaging [address] [phone] Referral ID Status Reason Start Date Expiration Date V isits Requested Visits Authorized [id number] Closed Auto-Generate d Referral 10/28/2023 11/22/2024 1 [...] INSTITUTE Diagnoses Chronic cough Pleural effusion Procedures NITRIC OXIDE, EXHALED NITRIC OXIDE GAS DETERMINATION Katerina Bravo, SHOE STICKS REPAIRER.STEAM TUNNEL FEEDER [address] [place] [address] [facility] [address] [place] [address] Referral ID Status Reason Start Date Expiration Date V isits Requested Visits Authorized [id number] Closed Auto-Generate d Referral 01/06/2024 02/04/2025 1 1 Specialty Diagnoses / Procedures Referred By Contac t Referred To Contact [facility] Diagnoses Chronic cough Pleural effusion Procedures SPIROMETRY WITH DILATOR IF OBSTRUCTED BRNCDILAT RSPSE SPMTRY PRE&POST-BRNCDILAT ADMN Katerina Bravo, SHOE STICKS REPAIRER.STEAM TUNNEL FEEDER [address] [place] [address] [address] [address] [place] [id number] Referral ID Status Reason Start Date Expiration Date V isits Requested Visits Authorized [id number] Closed Auto-Generate d Referral 01/06/2024 02/04/2025 1 1 Specialty Diagnoses / Procedures Referred By Contac t Referred To Contact [facility] Diagnoses Chronic cough Pleural effusion Interstitial pulmonary disease (HCC) Procedures LUNG DIFFUSION CAPACITY (DLCO) DIFFUSING CAPACITY Louise Cesar MD [address] [place] [address] [facility] [address] [place] [address] Referral ID Status Reason Start Date Expiration Date V isits Requested Visits Authorized [id number] Closed Auto-Generate d Referral 03/17/2024 04/16/2025 1 1 Specialty Diagnoses / Procedures Referred By Contac t Referred To Contact [facility] Diagnoses Pleural effusion Interstitial pulmonary disease (HCC) Procedures LUNG VOLUMES Louise Cesar MD [address] [place] [address] [address] [facility] [address] [place], [place] [id number] Referral ID Status Reason Start Date Expiration Date V isits Requested Visits Authorized [id number] Closed Auto-Generate d Referral 03/17/2024 04/16/2025 1 1 Reason Comments New Specialty Diagnoses / Procedures Referred By Contac t Referred To Contact CT IMAGING Diagnoses Interstitial pulmonary disease (HCC) Procedures CT CHEST W IVCON DIAGNOSTIC COMPUTED TOMOGRAPHY THORAX W/CONTRAST Louise Cesar MD [address] [place] [address] Ct Imaging [id number] Referral ID Status Reason Start Date Expiration Date V isits Requested Visits Authorized [id number] Closed Auto-Generate d Referral 03/17/2024 04/16/2025 1 1 Reason Comments recurrent pleural effusion Specialty Diagnoses / Procedures Referred By Contac t Referred To Contact Rheumatology Diagnoses Pleural effusion Elevated sed rate Elevated C-reactive protein (CRP) Procedures CONSULT TO RHEUM/IMMUN DISEASE OFFICE/OUTPATIENT [facility] 60 MINUTES Tita Landry, LETICIA.STEAM TUNNEL FEEDER [address] [place] [address] Referral ID Status Reason Start Date Expiration Date V isits Requested Visits Authorized [id number] Closed PCP Requested Referral 02/04/2024 02/03/2025 [address] Specialty Diagnoses / Procedures Referred By Contac t Referred To Contact CT IMAGING Diagnoses Diarrhea, unspecified type Abdominal pain, unspecified abdominal location Procedures CT ENTEROGRAPHY W IVCON CT ABD & PELVIS W/CONTRAST Sue Murillo MD [address] [place] [address] Ct Imaging [place] [address] Referral ID Status Reason Start Date Expiration Date V isits Requested Visits Authorized [id number] Closed Auto-Generate d Referral 04/20/2024 05/20/2025 1 1 Reason Comments Diarrhea Specialty Diagnoses / Procedures Referred By Contac t Referred To Contact Gastroenterology Diagnoses Diarrhea, unspecified type Procedures CONSULT TO GASTROENTEROLOGY OFFICE/OUTPATIENT [facility] 60 MINUTES Steffen Mccarty MD [address] [facility] [address] Referral ID Status Reason Start Date Expiration Date V isits Requested Visits Authorized [id number] Closed PCP Requested Referral 03/30/2024 03/30/2025 1 [...] follo w up Reason Comments Skin Check Reason Comments Appointment Thoracentesis Reason Comments Lab & Test Results Hospital Follow Up Reason Comments Appointment Confirmation Reason Comments Radio Gen RMP Reason Comments Established Patient Abdominal pain Abdominal Pain Reason Comments Refill Request Specialty Diagnoses / Procedures Referred By Contac t Referred To Contact [facility] Diagnoses 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] Procedures THORACENTESIS NEEDLE/CATH PLEURA W/IMAGING THORACENTESIS NEEDLE OR CATHETER ASPIRATION OF THE PLEURAL SPACE W IMAGING GUIDANCE Admitting [address] [place] [address] Referral ID Status Reason Start Date Expiration Date Visits Re quested Visits Authorized [id number] 1 1 Reason Comments Radio Main J1 Reason Comments Follow Up Reason Comments Radio Gen HB6 Reason Comments New Patient Reason Comments Follow Up Shortness of Breath Reason Comments Radio Gen A21 Reason Comments Fatigue Reason Comments elevated alkaline phosphatase Specialty Diagnoses / Procedures Referred By Contac t Referred To Contact Diagnoses Elevated alkaline phosphatase level Procedures CONSULT TO HEPATOLOGY OFFICE/OUTPATIENT [facility] MDM 60 MINUTES Xiomara Ly APRN.STEAM TUNNEL FEEDER [address] [place] [address] Phone: tel: fax: Referral ID Status Reason Start Date Expiration Date V isits Requested Visits Authorized [id number] Closed PCP Requested Referral 10/15/2024 10/15/2025 1 1 Reason Comments Follow Up Specialty Diagnoses / Procedures Referred By Contac t Referred To Contact Nephrology Diagnoses Elevated serum creatinine Procedures OFFICE/OUTPATIENT [facility] MDM 60 MINUTES Marlyn Hooper APRN.STEAM TUNNEL FEEDER [address] [place] [address] Phone: tel: fax: Referral ID Status Reason Start Date Expiration Date V isits Requested Visits Authorized [id number] Closed PCP Requested Referral 12/22/2024 12/22/2025 1 1 Reason Comments Toe Problem PT is here today wit h his spouse for wound distal Lt 2nd toe, he states it is painful for him. First noticed this Saturday evening. PCP rx'd augmentin, per redness has improved.SS: 10.5-11 Reason Comments Wound Check Established patient presents today for 7-10 day wound fuv of the left 2nd toe. Patient states finished augmentin on 03/20/25. Patient has been using mupirocin ointment and band- aid Care Teams (unrecognized sec tion and content) Steel Pan Form Placing Supervisor Relationship Specialty Start Date End Date Yuli Mariscal DO [address] [place] [address] PCP - General Internal Medicine 06/29/14 Yuli Mariscal DO [address] [place] [address] Internal Medicine 06/29/14 Karthik Calloway MD Consulting Physician Orthopedic Surgery 01/28/17 Steel Pan Form Placing Supervisor Relationship Specialty Start Date End Date Yuli Mariscal DO [address] [place] [address] PCP - General Internal Medicine 06/29/14 Yuli Mariscal DO [address] [facility] [place] [address] Internal Medicine 06/29/14 Karthik Calloway MD [address] [facility] [place] [address] Consulting Physician Orthopedic Surgery 01/28/17 Steel Pan Form Placing Supervisor Relationship Specialty Start Date End Date Yuil Mariscal DO [address] [facility] [place] [address] PCP - General Internal Medicine 06/29/14 Yuli Mariscal DO [address] [facility] [address] Internal Medicine 06/29/14 Karthik Calloway MD [address] [facility] [place] [address] Consulting Physician Orthopedic Surgery 01/28/17 Steel Pan Form Placing Supervisor Relationship Specialty Start Date End Date Yuli Mariscal DO [address] [facility] [place] [address] PCP - General Internal Medicine 06/29/14 Yuli Mariscal DO [address] [facility] [place] [address] Internal Medicine 06/29/14 Karthik Calloway MD [address] [facility] [place] [address] Consulting Physician Orthopedic Surgery 01/28/17 Steel Pan Form Placing Supervisor Relationship Specialty Start Date End Date Yuli Mariscal DO [address] [facility] [place] [address] PCP - General Internal Medicine 06/29/14 Yuli Mariscal DO [address] [facility] [place] [address] Internal Medicine 06/29/14 Karthik Calloway MD [address] [facility] [place] [address] Consulting Physician Orthopedic Surgery 01/28/17 Steel Pan Form Placing Supervisor Relationship Specialty Start Date End Date Yuli Mariscal DO [address] [facility] [place] [address] PCP - General Internal Medicine 06/29/14 Yuli Mariscal DO [address] [facility] [place] [address] Internal Medicine 06/29/14 Karthik Calloway MD [address] [facility] [place] [address] Consulting Physician Orthopedic Surgery 01/28/17 Steel Pan Form Placing Supervisor Relationship Specialty Start Date End Date Yuli Mariscal DO [address] [facility] [place] [address] PCP - General Internal Medicine 06/29/14 Yuli Mariscal DO [address] [facility] [place] [address] Internal Medicine 06/29/14 Karthik Calloway MD [address] [facility] [place] [address] Consulting Physician Orthopedic Surgery 01/28/17 Steel Pan Form Placing Supervisor Relationship Specialty Start Date End Date Yuli Mariscal DO [address] [facility] [place] [address] PCP - General Internal Medicine 06/29/14 Yuli Mariscal DO [address] [facility] [place] [address] Internal Medicine 06/29/14 Karthik Calloway MD [address] [facility] [place] [address] Consulting Physician Orthopedic Surgery 01/28/17 Steel Pan Form Placing Supervisor Relationship Specialty Start Date End Date Yuli Mariscal DO [address] [place] [address] [place] [address] PCP - General Internal Medicine 06/29/14 Yuli Mariscal DO [address] [place] [address] [place] [address] Internal Medicine 06/29/14 Karthik Calloway MD [address] [place] [address] [place] [address] Consulting Physician Orthopedic Surgery 01/28/17 Team Status: [...] Status: Inactive Member Role Status Dates Calin Clemente DO Attending Provider Active St art: September 04, 2023 End: September 04, 2023 Team Status: Inactive Member Role Status Dates Calin Clemente DO Attending Provider Active St art: September 05, 2023 End: September 05, 2023 Team Status: Active Member Role Status Dates Yuli Mariscal DO Attending Provider Active Sta rt: September 11, 2023 Team Status: Active Member Role Status Dates Yuli Mariscal DO Attending Provider Active Sta rt: October 01, 2023 Team Status: Inactive Member Role Status Dates Calin Clemente DO Attending Provider Active St art: October 02, 2023 End: October 02, 2023 Steel Pan Form Placing Supervisor Relationship Specialty Start Date End Date Yuli Mariscal DO [address] [place] [facility] [place] [place] [address] PCP - General Internal Medicine 12/07/20 Jere Sales [address] [address] [place] [address] Referring Gastroenterology 12/05/20 Steel Pan Form Placing Supervisor Relationship Specialty Start Date End Date Yuli Mariscal DO [address] [place] [facility] [place] [place] [address] PCP - General Internal Medicine 12/07/20 Jere Sales [address] [place] [address] Referring Gastroenterology 12/05/20 Calin Clemente DO [address] [facility] [place] [address] Internal Medicine 10/16/23 Steel Pan Form Placing Supervisor Relationship Specialty Start Date End Date Yuli Mariscal DO [address] [place] [place] [place] [address] PCP - General Internal Medicine 12/07/20 Jere Sales [address] [place] [address] Referring Gastroenterology 12/05/20 Calin Clemente DO [address] [facility] [place] [address] Internal Medicine 10/16/23 Steel Pan Form Placing Supervisor Relationship Specialty Start Date End Date Yuli Mariscal DO [address] [facility] [place] [address] PCP - General Internal Medicine 12/07/20 Jere Sales [address] [place] [address] Referring Gastroenterology 12/05/20 Calin Clemente DO [address] [facility] [place] [address] Internal Medicine 10/16/23 Steel Pan Form Placing Supervisor Relationship Specialty Start Date End Date Yuli Mariscal DO [address] [place] [facility] [place] [address] PCP - General Internal Medicine 12/07/20 Jere Sales [address] [place] [address] Referring Gastroenterology 12/05/20 Calin Clemente DO [address] [facility] [place] [address] Internal Medicine 10/16/23 Steel Pan Form Placing Supervisor Relationship Specialty Start Date End Date Yuli Mariscal DO [address] [place] [place] [address] PCP - General Internal Medicine 12/07/20 Jere Sales [address] [place] [address] Referring Gastroenterology 12/05/20 Calin Clemente DO [address] [facility] [place] [address] Internal Medicine 10/16/23 Steel Pan Form Placing Supervisor Relationship Specialty Start Date End Date Yuli Mariscal DO [address] [place] [place] [address] PCP - General Internal Medicine 12/07/20 Jere Sales [address] [place] [address] Referring Gastroenterology 12/05/20 Calin Clemente DO [address] [facility] [place] [address] Internal Medicine 10/16/23 Steel Pan Form Placing Supervisor Relationship Specialty Start Date End Date Yuli Mariscal DO [address] [place] [place] [address] PCP - General Internal Medicine 12/07/20 Jere Sales [address] [place] [address] Referring Gastroenterology 12/05/20 Calin Clemente DO [address] [facility] [place] [address] Internal Medicine 10/16/23 Steel Pan Form Placing Supervisor Relationship Specialty Start Date End Date Yuli Mariscal DO [address] [place] [place] [address] PCP - General Internal Medicine 12/07/20 Jere Sales [address] [place] [address] Referring Gastroenterology 12/05/20 Calin Clemente DO [address] [facility] [place] [address] Internal Medicine 10/16/23 Steel Pan Form Placing Supervisor Relationship Specialty Start Date End Date Yuli Mariscal DO [address] [facility] [address] PCP - General Internal Medicine 12/07/20 Jere Sales [address] [facility] [address] [place] [address] Referring Gastroenterology 12/05/20 Calin Clemente DO [address] [facility] [place] [address] Internal Medicine 10/16/23 Steel Pan Form Placing Supervisor Relationship Specialty Start Date End Date Yuli Mariscal DO [address] [place] [place] [address] PCP - General Internal Medicine 12/07/20 Jere Sales [address] [facility] [address] [place] [address] Referring Gastroenterology 12/05/20 Calin Clemente DO [address] [facility] [place] [address] Internal Medicine 10/16/23 Steel Pan Form Placing Supervisor Relationship Specialty Start Date End Date Yuli Mariscal DO [address] [place] [place] [address] PCP - General Internal Medicine 12/07/20 Jere Sales [address] [facility] [address] [place] [address] Referring Gastroenterology 12/05/20 Calin Clemente DO [address] [facility] [place] [address] Internal Medicine 10/16/23 Steel Pan Form Placing Supervisor Relationship Specialty Start Date End Date Yuli Mariscal DO [address] [place] [place] [address] PCP - General Internal Medicine 12/07/20 Jere Sales [address] [place] [address] Referring Gastroenterology 12/05/20 Calin Clemente DO [address] [facility] [place] [address] Internal Medicine 10/16/23 Steel Pan Form Placing Supervisor Relationship Specialty Start Date End Date Yuli Mariscal DO [address] [place] [place] [address] PCP - General Internal Medicine 12/07/20 Jere Sales [address] [place] [address] Referring Gastroenterology 12/05/20 Calin Clemente DO [address] [facility] [place] [address] Internal Medicine 10/16/23 Steel Pan Form Placing Supervisor Relationship Specialty Start Date End Date Yuli Mariscal DO [address] [place] [place] [address] PCP - General Internal Medicine 12/07/20 Jere Sales [address] [place] [address] Referring Gastroenterology 12/05/20 Calin Clemente DO [address] [facility] [place] [address] Internal Medicine 10/16/23 Steel Pan Form Placing Supervisor Relationship Specialty Start Date End Date Yuli Mariscal DO [address] [place] [place] [address] PCP - General Internal Medicine 12/07/20 Jere Sales [address] [facility] [address] [place] [address] Referring Gastroenterology 12/05/20 Calin Clemente DO [address] [facility] [place] [address] Internal Medicine 10/16/23 Steel Pan Form Placing Supervisor Relationship Specialty Start Date End Date Yuli Mariscal DO [address] [place] [place] [address] PCP - General Internal Medicine 12/07/20 Jere Sales [address] [place] [address] Referring Gastroenterology 12/05/20 Calin Clemente DO [address] [facility] [place] [address] Internal Medicine 10/16/23 Steel Pan Form Placing Supervisor Relationship Specialty Start Date End Date Yuli Mariscal DO [address] [place] [place] [address] PCP - General Internal Medicine 12/07/20 Jere Sales [address] [facility] [address] [place] [address] Referring Gastroenterology 12/05/20 Calin Clemente DO [address] [facility] [address] Internal Medicine 10/16/23 Steel Pan Form Placing Supervisor Relationship Specialty Start Date End Date Yuli Mariscal DO [address] [place] [address] PCP - General Internal Medicine 12/07/20 Jere Sales [address] [place] [address] Referring Gastroenterology 12/05/20 Calin Clemente DO [address] [facility] [address] Internal Medicine 10/16/23 Steel Pan Form Placing Supervisor Relationship Specialty Start Date End Date Yuli Mariscal DO [address] [place] [address] PCP - General Internal Medicine 12/07/20 Jere Sales [address] [place] [address] Referring Gastroenterology 12/05/20 Calin Clemente DO [address] [facility] [place] [address] Internal Medicine 10/16/23 Steel Pan Form Placing Supervisor Relationship Specialty Start Date End Date Yuli Mariscal DO [address] [place] [place] [address] PCP - General Internal Medicine 12/07/20 Jere Sales [address] [place] [address] Referring Gastroenterology 12/05/20 Calin Clemente DO [address] [place] [facility] [place] [address] Internal Medicine 10/16/23 Steel Pan Form Placing Supervisor Relationship Specialty Start Date End Date Yuli Mariscal DO [address] [place] [address] PCP - General Internal Medicine 12/07/20 MerliamJere [address] [place] [address] Referring Gastroenterology 12/05/20 Calin Clemente DO [address] [facility] [place] [address] Internal Medicine 10/16/23 Steel Pan Form Placing Supervisor Relationship Specialty Start Date End Date Yuli Mariscal DO [address] [place] [place] [address] PCP - General Internal Medicine 12/07/20 Jere Sales [address] [place] [address] Referring Gastroenterology 12/05/20 Calin Clemente DO [address] [place] [facility] [place] [address] Internal Medicine 10/16/23 Steel Pan Form Placing Supervisor Relationship Specialty Start Date End Date Yuli Mariscal DO [address] [place] [place] [address] PCP - General Internal Medicine 12/07/20 Jere Sales [address] [place] [address] Referring Gastroenterology 12/05/20 Calin Clemente DO [address] [facility] [place] [address] Internal Medicine 10/16/23 Steel Pan Form Placing Supervisor Relationship Specialty Start Date End Date Yuli Mariscal DO [address] [place] [place] [address] PCP - General Internal Medicine 12/07/20 Jere Sales [address] [place] [address] Referring Gastroenterology 12/05/20 Calin Clemente DO [address] [facility] [place] [address] Internal Medicine 10/16/23 Steel Pan Form Placing Supervisor Relationship Specialty Start Date End Date Yuli Mariscal DO [address] [place] [place] [address] PCP - General Internal Medicine 12/07/20 Jere Sales [address] [place] [address] Referring Gastroenterology 12/05/20 Calin Clemente DO [address] [facility] [place] [address] Internal Medicine 10/16/23 Steel Pan Form Placing Supervisor Relationship Specialty Start Date End Date Yuli Mariscal DO [address] [place] [place] [address] PCP - General Internal Medicine 12/07/20 Jere Sales [address] [place] [address] Referring Gastroenterology 12/05/20 Calin Clemente DO [address] [facility] [place] [address] Internal Medicine 10/16/23 Steel Pan Form Placing Supervisor Relationship Specialty Start Date End Date Yuli Mariscal DO [address] [place] [place] [address] PCP - General Internal Medicine 12/07/20 Jere Sales [address] [place] [address] Referring Gastroenterology 12/05/20 Calin Clemente DO [address] [place] [facility] [place] [address] Internal Medicine 10/16/23 Steel Pan Form Placing Supervisor Relationship Specialty Start Date End Date Yuli Mariscal DO [address] [place] [place] [address] PCP - General Internal Medicine 12/07/20 Jere Sales [address] [place] [address] Referring Gastroenterology 12/05/20 Calin Clemente DO [address] [facility] [place] [address] Internal Medicine 10/16/23 Steel Pan Form Placing Supervisor Relationship Specialty Start Date End Date Yuli Mariscal DO [address] [place] [place] [address] PCP - General Internal Medicine 12/07/20 Jere Sales [address] [facility] [address] [place] [address] Referring Gastroenterology 12/05/20 Calin Clemente DO [address] [facility] [place] [address] Internal Medicine 10/16/23 Steel Pan Form Placing Supervisor Relationship Specialty Start Date End Date Yuli Mariscal DO [address] [place] [place] [address] PCP - General Internal Medicine 12/07/20 Jere Sales [address] [place] [address] Referring Gastroenterology 12/05/20 Calin Clemente DO [address] [facility] [place] [address] Internal Medicine 10/16/23 Steel Pan Form Placing Supervisor Relationship Specialty Start Date End Date Yuli Mariscal DO [address] [place] [place] [address] PCP - General Internal Medicine 12/07/20 Jere Sales [address] [facility] [address] [place] [address] Referring Gastroenterology 12/05/20 Calin Clemente DO [address] [facility] [place] [address] Internal Medicine 10/16/23 Steel Pan Form Placing Supervisor Relationship Specialty Start Date End Date Yuli Mariscal DO [address] [place] [place] [address] PCP - General Internal Medicine 12/07/20 Jere Sales [address] [place] [address] Referring Gastroenterology 12/05/20 Calin Clemente DO [address] [facility] [place] [address] Internal Medicine 10/16/23 Steel Pan Form Placing Supervisor Relationship Specialty Start Date End Date Yuli Mariscal DO [address] [place] [place] [address] PCP - General Internal Medicine 12/07/20 Jere Sales [address] [place] [address] Referring Gastroenterology 12/05/20 Calin Clemente DO [address] [facility] [place] [address] Internal Medicine 10/16/23 Steel Pan Form Placing Supervisor Relationship Specialty Start Date End Date Yuli Mariscal DO [address] [place] [place] [address] PCP - General Internal Medicine 12/07/20 Jere Sales [address] [place] [address] Referring Gastroenterology 12/05/20 Calin Clemente DO [address] [facility] [place] [address] Internal Medicine 10/16/23 Steel Pan Form Placing Supervisor Relationship Specialty Start Date End Date Yuli Mariscal DO [address] [place] [place] [address] PCP - General Internal Medicine 12/07/20 Jere Sales [address] [place] [address] Referring Gastroenterology 12/05/20 Calin Clemente DO [address] [facility] [place] [address] Internal Medicine 10/16/23 Steel Pan Form Placing Supervisor Relationship Specialty Start Date End Date Yuli Mariscal DO [address] [place] [place] [address] PCP - General Internal Medicine 12/07/20 Jere Sales [address] [place] [address] Referring Gastroenterology 12/05/20 Calin Clemente DO [address] [facility] [place] [address] Internal Medicine 10/16/23 Steel Pan Form Placing Supervisor Relationship Specialty Start Date End Date Yuli Mariscal DO [address] [place] [place] [address] PCP - General Internal Medicine 12/07/20 Jere Sales [address] [place] [address] Referring Gastroenterology 12/05/20 Calin Clemente DO [address] [facility] [place] [address] Internal Medicine 10/16/23 Steel Pan Form Placing Supervisor Relationship Specialty Start Date End Date Yuli Mariscal DO [address] [place] [place] [address] PCP - General Internal Medicine 12/07/20 Jere Sales [address] [place] [address] Referring Gastroenterology 12/05/20 Calin Clemente DO [address] [facility] [place] [address] Internal Medicine 10/16/23 Steel Pan Form Placing Supervisor Relationship Specialty Start Date End Date Yuli Mariscal DO [address] [place] [place] [address] PCP - General Internal Medicine 12/07/20 Jere Sales [address] [place] [address] Referring Gastroenterology 12/05/20 Calin Clemente DO [address] [facility] [place] [address] Internal Medicine 10/16/23 Steel Pan Form Placing Supervisor Relationship Specialty Start Date End Date Yuli Mariscal DO [address] [place] [place] [address] PCP - General Internal Medicine 12/07/20 Jere Sales [address] [place] [address] Referring Gastroenterology 12/05/20 Calin Clemente DO [address] [facility] [place] [address] Internal Medicine 10/16/23 Steel Pan Form Placing Supervisor Relationship Specialty Start Date End Date Yuli Mariscal DO [address] [place] [place] [address] PCP - General Internal Medicine 12/07/20 Jere Sales [address] [place] [address] Referring Gastroenterology 12/05/20 Calin Clemente DO [address] [facility] [place] [address] Internal Medicine 10/16/23 Steel Pan Form Placing Supervisor Relationship Specialty Start Date End Date Yuli Mariscal DO [address] [place] [place] [address] PCP - General Internal Medicine 12/07/20 Jere Sales [address] [place] [address] Referring Gastroenterology 12/05/20 Calin Clemente DO [address] [facility] [place] [address] Internal Medicine 10/16/23 Steel Pan Form Placing Supervisor Relationship Specialty Start Date End Date Yuli Mariscal DO [address] [place] [address] PCP - General Internal Medicine 12/07/20 Jere Sales MD [address] [address] [place] [address] Referring Gastroenterology 12/05/20 Calin Clemente DO [address] [facility] [place] [address] Internal Medicine 10/16/23 Steel Pan Form Placing Supervisor Relationship Specialty Start Date End Date Yuli Mariscal DO [address] [place] [address] PCP - General Internal Medicine 06/29/14 Yuli Mariscal DO [address] [place] [address], [place] [address] Internal Medicine 06/29/14 Karthik Calloway MD [address] [place] [address], [place] [address] Consulting Physician Orthopedic Surgery 01/28/17 Steel Pan Form Placing Supervisor Relationship Specialty Start Date End Date Yuli Mariscal DO [address] [place] [address] PCP - General Internal Medicine 12/07/20 Jere Sales MD [address] [address] [place] [address] Referring Gastroenterology 12/05/20 Calin Clemente DO [address] [facility] [place] [address] Internal Medicine 10/16/23 Steel Pan Form Placing Supervisor Relationship Specialty Start Date End Date Yuli Mariscal DO [address] [place] [place] [address] PCP - General Internal Medicine 12/07/20 Jere Sales MD [address] [facility] [address] [place] [address] Referring Gastroenterology 12/05/20 Calin Clemente DO [address] [facility] [place] [address] Internal Medicine 10/16/23 Steel Pan Form Placing Supervisor Relationship Specialty Start Date End Date Yuli Mariscal DO [address] [place] [place] [address] PCP - General Internal Medicine 12/07/20 Jere Sales MD [address] [place] [address] Referring Gastroenterology 12/05/20 Calin Clemente DO [address] [facility] [place] [address] Internal Medicine 10/16/23 Steel Pan Form Placing Supervisor Relationship Specialty Start Date End Date Yuli Mariscal DO [address] [place] [place] [address] PCP - General Internal Medicine 12/07/20 Jere Sales MD [address] [facility] [address] [place] [address] Referring Gastroenterology 12/05/20 Calin Clemente DO [address] [facility] [place] [address] Internal Medicine 10/16/23 Steel Pan Form Placing Supervisor Relationship Specialty Start Date End Date Yuli Mariscal DO [address] [place] [place] [address] PCP - General Internal Medicine 12/07/20 Jere Sales MD [address] [place] [address] Referring Gastroenterology 12/05/20 Calin Clemente DO [address] [facility] [place] [address] Internal Medicine 10/16/23 Steel Pan Form Placing Supervisor Relationship Specialty Start Date End Date Yuli Mariscal DO [address] [place] [address] PCP - General Internal Medicine 12/07/20 Jere Sales MD [address] [place] [address] Referring Gastroenterology 12/05/20 Calin Clemente DO [address] [facility] [place] [address] Internal Medicine 10/16/23 Steel Pan Form Placing Supervisor Relationship Specialty Start Date End Date Yuli Mariscal DO [address] [place] [address] PCP - General Internal Medicine 12/07/20 Jere Sales MD [address] [place] [address] Referring Gastroenterology 12/05/20 Calin Clemente DO [address] [facility] [place] [address] Internal Medicine 10/16/23 Steel Pan Form Placing Supervisor Relationship Specialty Start Date End Date Yuli Mariscal DO [address] [place] [address] PCP - General Internal Medicine 12/07/20 Jere Sales MD [address] [place] [address] Referring Gastroenterology 12/05/20 Calin Clemente DO [address] [facility] [place] [address] Internal Medicine 10/16/23 Steel Pan Form Placing Supervisor Relationship Specialty Start Date End Date Yuli Mariscal DO [address] [place] [address] PCP - General Internal Medicine 12/07/20 Jere Sales MD [address] [place] [address] Referring Gastroenterology 12/05/20 Calin Clemente DO [address] [facility] [place] [address] Internal Medicine 10/16/23 Steel Pan Form Placing Supervisor Relationship Specialty Start Date End Date Yuli Mariscal DO [address] [place] [address] PCP - General Internal Medicine 12/07/20 Jere Sales MD [address] [place] [address] Referring Gastroenterology 12/05/20 Calin Clemente DO [address] [facility] [place] [address] Internal Medicine 10/16/23 Steel Pan Form Placing Supervisor Relationship Specialty Start Date End Date Yuli Mariscal DO [address] [place] [address] PCP - General Internal Medicine 12/07/20 Jere Sales MD [address] [place] [address] Referring Gastroenterology 12/05/20 Calin Clemente DO [address] [facility] [place] [address] Internal Medicine 10/16/23 Steel Pan Form Placing Supervisor Relationship Specialty Start Date End Date Yuli Mariscal DO [address] [place] [address] PCP - General Internal Medicine 12/07/20 Jere Sales MD [address] [place] [address] Referring Gastroenterology 12/05/20 Calin Clemente DO [address] [facility] [place] [address] Internal Medicine 10/16/23 Steel Pan Form Placing Supervisor Relationship Specialty Start Date End Date Yuli Mariscal DO [address] [place] [address] PCP - General Internal Medicine 12/07/20 Jere Sales MD [address] [address] Referring Gastroenterology 12/05/20 Calin Clemente DO [address] [place] [address] Internal Medicine 10/16/23 Steel Pan Form Placing Supervisor Relationship Specialty Start Date End Date Yuli Mariscal DO [address] [place] [address] PCP - General Internal Medicine 12/07/20 Jere Sales MD [address] [address] Referring Gastroenterology 12/05/20 Calin Clemente DO [address] [place] [address] Internal Medicine 10/16/23 Team Status: Active Member Role Status Dates Yuli Mariscal DO Primary Care Provider Active Team Status: Inactive Member Role Status Dates Yuli Mariscal DO Primary Care Provide r, Attending Provider Active Start: July 14, 2024 End: July 14, 2024 Team Status: Active Member Role Status Dates Yuli Mariscal DO Primary Care Provide r, Attending Provider Active Start: July 20, 2024 Team Status: Active Member Role Status Dates Yuli Mariscal DO Primary Care Provide r, Attending Provider Active Start: July 29, 2024 Team Status: Active Member Role Status Dates Yuli Mariscal DO Primary Care Provider Active Start: August 13, 2024 Joselin Berman CMA Attending Provider Active Start: August 13, 2024 Team Status: Active Member Role Status Dates Yuli Mariscal DO Primary Care Provider Active Start: August 24, 2024 Sue Murillo MD Attending Provider Active Sta rt: August 24, 2024 Team Status: Active Member Role Status Dates Yuli Mariscal , Primary Care Provide r, Attending Provider Active Start: August 28, 2024 Team Status: Active Member Role Status Dates Yuli Mariscal , Primary Care Provider Active Start: August 30, 2024 Sudha Hogan PA-C Attending Provider Active Start : August 30, 2024 Team Status: Active Member Role Status Dates Yuli Mariscal , DO Primary Care Provide r, Attending Provider Active Start: August 31, 2024 Team Status: Active Member Role Status Dates Yuli Mariscal , Primary Care Provider Active Start: September 02, 2024 Joselin Berman CMA Attending Provider Active Start: September 02, 2024 Team Status: Active Member Role Status Dates Yuli Mariscal , DO Primary Care Provide r, Attending Provider Active Start: September 03, 2024 Team Status: Inactive Member Role Status Dates Yuli Mariscal , DO Primary Care Provide r, Attending Provider Active Start: September 11, 2024 End: September 11, 2024 Steel Pan Form Placing Supervisor Relationship Specialty Start Date End Date Yuli Mariscal DO [address] [place] [address] PCP - General Internal Medicine 12/07/20 Jere Sales MD [address] [address] Referring Gastroenterology 12/05/20 Calin Clemente DO [address] [place] [address] Internal Medicine 10/16/23 Steel Pan Form Placing Supervisor Relationship Specialty Start Date End Date Yuli Mariscal DO [address] [place] [address] PCP - General Internal Medicine 12/07/20 Jere Sales MD [address] [address] Referring Gastroenterology 12/05/20 Calin Clemente DO [address] [facility] [place] [address] Internal Medicine 10/16/23 Steel Pan Form Placing Supervisor Relationship Specialty Start Date End Date Ylui Mariscal DO [address] [place] [place] [address] PCP - General Internal Medicine 12/07/20 Jere Sales MD [address] [place] [address] Referring Gastroenterology 12/05/20 Calin Clemente DO [address] [facility] [place] [address] Internal Medicine 10/16/23 Steel Pan Form Placing Supervisor Relationship Specialty Start Date End Date Yuli Mariscal DO [address] [place] [place] [address] PCP - General Internal Medicine 12/07/20 Jere Sales MD [address] [place] [address] Referring Gastroenterology 12/05/20 Calin Clemente DO [address] [place] [facility] [place] [address] Internal Medicine 10/16/23 Steel Pan Form Placing Supervisor Relationship Specialty Start Date End Date Yuli Mariscal DO [address] [place] [place] [address] PCP - General Internal Medicine 12/07/20 Jere Sales MD [address] [place] [address] Referring Gastroenterology 12/05/20 Calin Clemente DO [address] [facility] [place] [address] Internal Medicine 10/16/23 [employer] Supervisor Relationship Specialty Start Date End Date Yuli Mariscal DO [address] [place] [place] [place] [address] PCP - General Internal Medicine 12/07/20 Jere Sales MD [address] [place] [address] Referring Gastroenterology 12/05/20 Calin Clemente DO [address] [facility] [place] [address] Internal Medicine 10/16/23 [employer] Supervisor Relationship Specialty Start Date End Date Yuli Mariscal DO [address] [facility] [place] [place] [address] PCP - General Internal Medicine 12/07/20 Jere Sales MD [address] [place] [address] Referring Gastroenterology 12/05/20 Calin Clemente DO [address] [facility] [place] [address] Internal Medicine 10/16/23 [employer] Placing Supervisor Relationship Specialty Start Date End Date Yuli Mariscal DO [address] [facility] [place] [place] [address] PCP - General Internal Medicine 12/07/20 Jere Sales MD [address] [address] Referring Gastroenterology 12/05/20 Calin Clemente DO [address] [facility] [place] [address] Internal Medicine 10/16/23 [employer] Supervisor Relationship Specialty [place] [address] [place] [address] PCP - General Family Medicine 12/29/23 Jere Sales MD [address] [address] Referring Gastroenterology 12/05/20 Calin Clemente DO [address] [facility] [place] [address] Internal Medicine 10/16/23 [employer] Pl[employer] Supervisor Relationship Specialty Start [place] [address] [place] [address] PCP - General Family Medicine 12/29/23 Jere Sales MD [address] [place] [address] Referring Gastroenterology 12/05/20 Calin Clemente DO [address] [facility] [place] [address] Internal Medicine 10/16/23 [employer] Placing Supervisor Relationship Specialty [place] [address] [place] [address] PCP - General Family Medicine 12/29/23 Jere Sales MD [address] [place] [address] Referring Gastroenterology 12/05/20 Calin Clemente DO [address] [facility] [place] [address] Internal Medicine 10/16/23 [employer] Form Placing Supervisor Relationship Specialty Start [place] [address] [place] [address] PCP - General Family Medicine 12/29/23 Jere Sales MD [address] [place] [address] Referring Gastroenterology 12/05/20 Calin Clemente DO [address] [facility] [place] [address] Internal Medicine 10/16/23 Steel Pan Form Placing Supervisor Relationship Specialty Start [place] [address] [place] [address] PCP - General Family Medicine 12/29/23 Jere Sales MD [address] [place] [address] Referring Gastroenterology 12/05/20 Calin Clemente DO [address] [facility] [place] [address] Internal Medicine 10/16/23 [employer] Placing Supervisor Relationship Specialty Start [place] [address] [place] [address] PCP - General Family Medicine 12/29/23 Jere Sales MD [address] [address] Referring Gastroenterology 12/05/20 Calin Clemente DO [address] [facility] [place] [address] Internal Medicine 10/16/23 [employer] Pan Form Placing Supervisor Relationship Specialty Start [place] [address] [place] [address] PCP - General Family Medicine 12/29/23 Jere Sales MD [address] [address] Referring Gastroenterology 12/05/20 Calin Clemente DO [address] [facility] [place] [address] Internal Medicine 10/16/23 Steel Pan Form Placing Supervisor Relationship Specialty Start [place] [address] [place] [address] PCP - General Family Medicine 12/29/23 Jere Sales MD [address] [place] [address] Referring Gastroenterology 12/05/20 Calin Clemente DO [address] [facility] [place] [address] Internal Medicine 10/16/23 Steel Pan [employer] Placing Supervisor Relationship Specialty Start [place] [address] [place] [address] PCP - General Family Medicine 12/29/23 Jere Sales MD [address] [address] Referring Gastroenterology 12/05/20 Calin Clemente DO [address] [facility] [place] [address] Internal Medicine 10/16/23 [employer] Placing Supervisor Relationship Specialty Start [place] [address] [place] [address] PCP - General Family Medicine 12/29/23 Jere Sales MD [address] [address] Referring Gastroenterology 12/05/20 Calin Clemente DO [address] [facility] [place] [address] Internal Medicine 10/16/23 Steel Pan Form Placing Supervisor Relationship Specialty Start [place] [address] [place] [address] PCP - General Family Medicine 12/29/23 Jere Sales MD [address] [address] Referring Gastroenterology 12/05/20 Calin Clemente DO [address] [facility] [place] [address] Internal Medicine 10/16/23 Steel Pan [employer] Placing Supervisor Relationship Specialty Start [place] [address] [place] [address] PCP - General Family Medicine 12/29/23 Jere Sales MD [address] [address] Referring Gastroenterology 12/05/20 Calin Clemente DO [address] [facility] [place] [address] Internal Medicine 10/16/23 Steel Pan Form Placing Supervisor Relationship Specialty Start [place] [address] [place] [address] PCP - General Family Medicine 12/29/23 Jere Sales MD [address] [place] [address] Referring Gastroenterology 12/05/20 Calin Clemente DO [address] [facility] [place] [address] Internal Medicine 10/16/23 Steel Pan Form Placing Supervisor Relationship Specialty Start [place] [address] [place] [address] PCP - General Family Medicine 12/29/23 Jere Sales MD [address] [place] [address] Referring Gastroenterology 12/05/20 Calin Clemente DO [address] [place] [address] Internal Medicine 10/16/23 [employer] Pan [employer] Placing Supervisor Relationship Specialty [place] [address] [facility] [place] [address] PCP - General Family Medicine 12/29/23 Jere Sales MD [address] [place] [address] Referring Gastroenterology 12/05/20 Calin Clemente DO [address] [facility] [place] [address] Internal Medicine 10/16/23 Steel [employer] Placing Supervisor Relationship Specialty Start [place] [address] [place] [address] PCP - General Family Medicine 12/29/23 Jere Sales MD [address] [place] [address] Referring Gastroenterology 12/05/20 Calin Clemetne DO [address] [place] [address] Internal Medicine 10/16/23 Steel Pan Form Placing Supervisor Relationship Specialty Start [place] [address] [place] [address] PCP - General Family Medicine 12/29/23 Jere Sales MD [address] [place] [address] Referring Gastroenterology 12/05/20 Calin Clemente DO [address] [place] [address] Internal Medicine 10/16/23 Steel Pan [employer] Placing Supervisor Relationship Specialty Start [place] [address] [place] [address] PCP - General Family Medicine 12/29/23 Jere Sales MD [address] [address] Referring Gastroenterology 12/05/20 Calin Clemente DO [address] [place] [address] Internal Medicine 10/16/23 Steel Pan [employer] Placing Supervisor Relationship Specialty Start [place] [address] [place] [address] PCP - General Family Medicine 12/29/23 Jere Sales MD [address] [address] Referring Gastroenterology 12/05/20 Calin Clemente DO [address] [place] [address] Internal Medicine 10/16/23 Steel Pan [employer] Placing Supervisor Relationship Specialty Start [place] [address] [place] [address] PCP - General Family Medicine 12/29/23 Jere Sales MD [address] [address] Referring Gastroenterology 12/05/20 Calin Clemente DO [address] [place] [address] Internal Medicine 10/16/23 Steel Pan Form Placing Supervisor Relationship Specialty Start Date End Date Yuli Mariscal DO [address] [place] [address] PCP - General Internal Medicine 03/12/25 Steel Pan Form Placing Supervisor Relationship Specialty Start Date End Date Yuli Mariscal DO [address] [place] [address] PCP - General Internal Medicine 03/12/25 Steel Pan [employer] Placing Supervisor Relationship Specialty Start Date End Date Yuli Mariscal DO [address] [place] [address] PCP - General Internal Medicine 03/12/25 Steel Pan Form Placing Supervisor Relationship Specialty Start Date End Date Yuli Mariscal DO [address] [place] [address] PCP - General Internal Medicine 03/12/25 Steel Pan Form Placing Supervisor Relationship Specialty Start Date End Date Yuli Mariscal DO [address] [place] [address] PCP - General Internal Medicine 03/12/25 Steel Pan Form Placing Supervisor Relationship Specialty Start Date End Date Yuli Mariscal DO [address] [place] [address] PCP - General Internal Medicine 03/12/25 (unrecognized sect ion and content) No Status Records FoundNo Status Records FoundNo Status Records FoundNo Status Records FoundNo Status Records FoundNo Status Records FoundNo Status Records FoundNo Status Records FoundNo Status Records FoundNo Status Records Found INFORMATION SOURCE (unrecogn ized section and content) DATE CREATED AUTHOR 03/22/2022 [facility] DATE CREATED AUTHOR AUTHOR'S ORGANIZ ATION 02/16/2023 [facility] DATE CREATED AUTHOR AUTHOR'S ORGANIZ ATION 10/13/2023 [facility] DATE CREATED AUTHOR AUTHOR'S ORGANIZ ATION 03/19/2024 [facility] DATE CREATED AUTHOR AUTHOR'S ORGANIZ ATION 03/23/2024 [facility] DATE CREATED AUTHOR AUTHOR'S ORGANIZ ATION 05/02/2024 [facility] DATE CREATED AUTHOR AUTHOR'S ORGANIZ ATION 11/28/2024 [facility] DATE CREATED AUTHOR AUTHOR'S ORGANIZ ATION 03/27/2025 [facility] DATE CREATED AUTHOR AUTHOR'S ORGANIZ ATION 03/30/2025 [facility] DATE CREATED AUTHOR AUTHOR'S ORGANIZ ATION 03/31/2025 [facility] Goals (unrecognized section and content) Goals [...] abuse patient.[facility] the event this information is protected by the Federal Confidentiality of Alcohol and Drug Abuse Patient Records regulations: The Federal rules restrict any use of the information to criminally investigate or prosecute any alcohol or drug abuse patient.[facility] CenterIn the event this information is protected by the Federal Confidentiality of Alcohol and Drug Abuse Patient Records regulations: The Federal rules restrict any use of the information to criminally investigate or prosecute any alcohol or drug abuse patient.[facility]In the event this information is protected by the Federal Confidentiality of Alcohol and Drug Abuse Patient Records regulations: The Federal rules restrict any use of the information to criminally investigate or prosecute any alcohol or drug abuse patient.[facility] CenterIn the event this information is protected by the Federal Confidentiality of Alcohol and Drug Abuse Patient Records regulations: The Federal rules restrict any use of the information to criminally investigate or prosecute any alcohol or drug abuse patient.[facility] CenterIn the event this information is protected by the Federal Confidentiality of Alcohol and Drug Abuse Patient Records regulations: The Federal rules restrict any use of the information to criminally investigate or prosecute any alcohol or drug abuse patient.[facility] CenterIn the event this information is protected by the Federal Confidentiality of Alcohol and Drug Abuse Patient Records regulations: The Federal rules restrict any use of the information to criminally investigate or prosecute any alcohol or drug abuse patient.[facility] CenterIn the event this information is protected by the Federal Confidentiality of Alcohol and Drug Abuse Patient Records regulations: The Federal rules restrict any use of the information to criminally investigate or prosecute any alcohol or drug abuse patient.[facility] CenterIn the event this information is protected by the Federal Confidentiality of Alcohol and Drug Abuse Patient Records regulations: The Federal rules restrict any use of the information to criminally investigate or prosecute any alcohol or drug abuse patient.[facility] CenterIn the event this information is protected by the Federal Confidentiality of Alcohol and Drug Abuse Patient Records regulations: The Federal rules restrict any use of the information to criminally investigate or prosecute any alcohol or drug abuse patient.[facility] CenterIn the event this information is protected by the Federal Confidentiality of Alcohol and Drug Abuse Patient Records regulations: The Federal rules restrict any use of the information to criminally investigate or prosecute any alcohol or drug abuse patient.[facility] CenterIn the event this information is protected by the Federal Confidentiality of Alcohol and Drug Abuse Patient Records regulations: The Federal rules restrict any use of the information to criminally investigate or prosecute any alcohol or drug abuse patient.[facility] CenterIn the event this information is protected by the Federal Confidentiality of Alcohol and Drug Abuse Patient Records regulations: The Federal rules restrict any use of the information to criminally investigate or prosecute any alcohol or drug abuse patient.[facility] CenterIn the event this information is protected by the Federal Confidentiality of Alcohol and Drug Abuse Patient Records regulations: The Federal rules restrict any use of the information to criminally investigate or prosecute any alcohol or drug abuse patient.[facility] CenterIn the event this information is protected by the Federal Confidentiality of Alcohol and Drug Abuse Patient Records regulations: The Federal rules restrict any use of the information to criminally investigate or prosecute any alcohol or drug abuse patient.[facility] CenterIn the event this information is protected by the Federal Confidentiality of Alcohol and Drug Abuse Patient Records regulations: The Federal rules restrict any use of the information to criminally investigate or prosecute any alcohol or drug abuse patient.[facility] CenterIn the event this information is protected by the Federal Confidentiality of Alcohol and Drug Abuse Patient Records regulations: The Federal rules restrict any use of the information to criminally investigate or prosecute any alcohol or drug abuse patient.[facility] CenterIn the event this information is protected by the Federal Confidentiality of Alcohol and Drug Abuse Patient Records regulations: The Federal rules restrict any use of the information to criminally investigate or prosecute any alcohol or drug abuse patient.[facility] CenterIn the event this information is protected by the Federal Confidentiality of Alcohol and Drug Abuse Patient Records regulations: The Federal rules restrict any use of the information to criminally investigate or prosecute any alcohol or drug abuse patient.[facility] CenterIn the event this information is protected by the Federal Confidentiality of Alcohol and Drug Abuse Patient Records regulations: The Federal rules restrict any use of the information to criminally investigate or prosecute any alcohol or drug abuse patient.[facility] CenterIn the event this information is protected by the Federal Confidentiality of Alcohol and Drug Abuse Patient Records regulations: The Federal rules restrict any use of the information to criminally investigate or prosecute any alcohol or drug abuse patient.[facility] CenterIn the event this information is protected by the Federal Confidentiality of Alcohol and Drug Abuse Patient Records regulations: The Federal rules restrict any use of the information to criminally investigate or prosecute any alcohol or drug abuse patient.[facility] CenterIn the event this information is protected by the Federal Confidentiality of Alcohol and Drug Abuse Patient Records regulations: The Federal rules restrict any use of the information to criminally investigate or prosecute any alcohol or drug abuse patient.[facility] CenterIn the event this information is protected by the Federal Confidentiality of Alcohol and Drug Abuse Patient Records regulations: The Federal rules restrict any use of the information to criminally investigate or prosecute any alcohol or drug abuse patient.[facility] CenterIn the event this information is protected by the Federal Confidentiality of Alcohol and Drug Abuse Patient Records regulations: The Federal rules restrict any use of the information to criminally investigate or prosecute any alcohol or drug abuse patient.[facility] CenterIn the event this information is protected by the Federal Confidentiality of Alcohol and Drug Abuse Patient Records regulations: The Federal rules restrict any use of the information to criminally investigate or prosecute any alcohol or drug abuse patient.[facility] CenterIn the event this information is protected by the Federal Confidentiality of Alcohol and Drug Abuse Patient Records regulations: The Federal rules restrict any use of the information to criminally investigate or prosecute any alcohol or drug abuse patient.[facility] CenterIn the event this information is protected by the Federal Confidentiality of Alcohol and Drug Abuse Patient Records regulations: The Federal rules restrict any use of the information to criminally investigate or prosecute any alcohol or drug abuse patient.[facility] CenterIn the event this information is protected by the Federal Confidentiality of Alcohol and Drug Abuse Patient Records regulations: The Federal rules restrict any use of the information to criminally investigate or prosecute any alcohol or drug abuse patient.[facility] CenterIn the event this information is protected by the Federal Confidentiality of Alcohol and Drug Abuse Patient Records regulations: The Federal rules restrict any use of the information to criminally investigate or prosecute any alcohol or drug abuse patient.[facility] CenterIn the event this information is protected by the Federal Confidentiality of Alcohol and Drug Abuse Patient Records regulations: The Federal rules restrict any use of the information to criminally investigate or prosecute any alcohol or drug abuse patient.[facility] CenterIn the event this information is protected by the Federal Confidentiality of Alcohol and Drug Abuse Patient Records regulations: The Federal rules restrict any use of the information to criminally investigate or prosecute any alcohol or drug abuse patient.[facility] CenterIn the event this information is protected by the Federal Confidentiality of Alcohol and Drug Abuse Patient Records regulations: The Federal rules restrict any use of the information to criminally investigate or prosecute any alcohol or drug abuse patient.[facility] CenterIn the event this information is protected by the Federal Confidentiality of Alcohol and Drug Abuse Patient Records regulations: The Federal rules restrict any use of the information to criminally investigate or prosecute any alcohol or drug abuse patient.[facility] CenterIn the event this information is protected by the Federal Confidentiality of Alcohol and Drug Abuse Patient Records regulations: The Federal rules restrict any use of the information to criminally investigate or prosecute any alcohol or drug abuse patient.[facility] CenterIn the event this information is protected by the Federal Confidentiality of Alcohol and Drug Abuse Patient Records regulations: The Federal rules restrict any use of the information to criminally investigate or prosecute any alcohol or drug abuse patient.[facility] CenterIn the event this information is protected by the Federal Confidentiality of Alcohol and Drug Abuse Patient Records regulations: The Federal rules restrict any use of the information to criminally investigate or prosecute any alcohol or drug abuse patient.[facility] CenterIn the event this information is protected by the Federal Confidentiality of Alcohol and Drug Abuse Patient Records regulations: The Federal rules restrict any use of the information to criminally investigate or prosecute any alcohol or drug abuse patient.[facility] CenterIn the event this information is protected by the Federal Confidentiality of Alcohol and Drug Abuse Patient Records regulations: The Federal rules restrict any use of the information to criminally investigate or prosecute any alcohol or drug abuse patient.[facility] CenterIn the event this information is protected by the Federal Confidentiality of Alcohol and Drug Abuse Patient Records regulations: The Federal rules restrict any use of the information to criminally investigate or prosecute any alcohol or drug abuse patient.[facility] CenterIn the event this information is protected by the Federal Confidentiality of Alcohol and Drug Abuse Patient Records regulations: The Federal rules restrict any use of the information to criminally investigate or prosecute any alcohol or drug abuse patient.[facility] CenterIn the event this information is protected by the Federal Confidentiality of Alcohol and Drug Abuse Patient Records regulations: The Federal rules restrict any use of the information to criminally investigate or prosecute any alcohol or drug abuse patient.[facility] CenterIn the event this information is protected by the Federal Confidentiality of Alcohol and Drug Abuse Patient Records regulations: The Federal rules restrict any use of the information to criminally investigate or prosecute any alcohol or drug abuse patient.[facility] CenterIn the event this information is protected by the Federal Confidentiality of Alcohol and Drug Abuse Patient Records regulations: The Federal rules restrict any use of the information to criminally investigate or prosecute any alcohol or drug abuse patient.[facility] CenterIn the event this information is protected by the Federal Confidentiality of Alcohol and Drug Abuse Patient Records regulations: The Federal rules restrict any use of the information to criminally investigate or prosecute any alcohol or drug abuse patient.[facility] CenterIn the event this information is protected by the Federal Confidentiality of Alcohol and Drug Abuse Patient Records regulations: The Federal rules restrict any use of the information to criminally investigate or prosecute any alcohol or drug abuse patient.[facility] CenterIn the event this information is protected by the Federal Confidentiality of Alcohol and Drug Abuse Patient Records regulations: The Federal rules restrict any use of the information to criminally investigate or prosecute any alcohol or drug abuse patient.[facility] the event this information is protected by the Federal Confidentiality of Alcohol and Drug Abuse Patient Records regulations: The Federal rules restrict any use of the information to criminally investigate or prosecute any alcohol or drug abuse patient.[facility] CenterIn the event this information is protected by the Federal Confidentiality of Alcohol and Drug Abuse Patient Records regulations: The Federal rules restrict any use of the information to criminally investigate or prosecute any alcohol or drug abuse patient.[facility] CenterIn the event this information is protected by the Federal Confidentiality of Alcohol and Drug Abuse Patient Records regulations: The Federal rules restrict any use of the information to criminally investigate or prosecute any alcohol or drug abuse patient.[facility] CenterIn the event this information is protected by the Federal Confidentiality of Alcohol and Drug Abuse Patient Records regulations: The Federal rules restrict any use of the information to criminally investigate or prosecute any alcohol or drug abuse patient.[facility] CenterIn the event this information is protected by the Federal Confidentiality of Alcohol and Drug Abuse Patient Records regulations: The Federal rules restrict any use of the information to criminally investigate or prosecute any alcohol or drug abuse patient.[facility] CenterIn the event this information is protected by the Federal Confidentiality of Alcohol and Drug Abuse Patient Records regulations: The Federal rules restrict any use of the information to criminally investigate or prosecute any alcohol or drug abuse patient.[facility] CenterIn the event this information is protected by the Federal Confidentiality of Alcohol and Drug Abuse Patient Records regulations: The Federal rules restrict any use of the information to criminally investigate or prosecute any alcohol or drug abuse patient.[facility] CenterIn the event this information is protected by the Federal Confidentiality of Alcohol and Drug Abuse Patient Records regulations: The Federal rules restrict any use of the information to criminally investigate or prosecute any alcohol or drug abuse patient.[facility] CenterIn the event this information is protected by the Federal Confidentiality of Alcohol and Drug Abuse Patient Records regulations: The Federal rules restrict any use of the information to criminally investigate or prosecute any alcohol or drug abuse patient.[facility] CenterIn the event this information is protected by the Federal Confidentiality of Alcohol and Drug Abuse Patient Records regulations: The Federal rules restrict any use of the information to criminally investigate or prosecute any alcohol or drug abuse patient.[facility] CenterIn the event this information is protected by the Federal Confidentiality of Alcohol and Drug Abuse Patient Records regulations: The Federal rules restrict any use of the information to criminally investigate or prosecute any alcohol or drug abuse patient.[facility]In the event this information is protected by the Federal Confidentiality of Alcohol and Drug Abuse Patient Records regulations: The Federal rules restrict any use of the information to criminally investigate or prosecute any alcohol or drug abuse patient.[facility] CenterIn the event this information is protected by the Federal Confidentiality of Alcohol and Drug Abuse Patient Records regulations: The Federal rules restrict any use of the information to criminally investigate or prosecute any alcohol or drug abuse patient.[facility] CenterIn the event this information is protected by the Federal Confidentiality of Alcohol and Drug Abuse Patient Records regulations: The Federal rules restrict any use of the information to criminally investigate or prosecute any alcohol or drug abuse patient.[facility] CenterIn the event this information is protected by the Federal Confidentiality of Alcohol and Drug Abuse Patient Records regulations: The Federal rules restrict any use of the information to criminally investigate or prosecute any alcohol or drug abuse patient.[facility] CenterIn the event this information is protected by the Federal Confidentiality of Alcohol and Drug Abuse Patient Records regulations: The Federal rules restrict any use of the information to criminally investigate or prosecute any alcohol or drug abuse patient.[facility] CenterIn the event this information is protected by the Federal Confidentiality of Alcohol and Drug Abuse Patient Records regulations: The Federal rules restrict any use of the information to criminally investigate or prosecute any alcohol or drug abuse patient.[facility] CenterIn the event this information is protected by the Federal Confidentiality of Alcohol and Drug Abuse Patient Records regulations: The Federal rules restrict any use of the information to criminally investigate or prosecute any alcohol or drug abuse patient.[facility] CenterIn the event this information is protected by the Federal Confidentiality of Alcohol and Drug Abuse Patient Records regulations: The Federal rules restrict any use of the information to criminally investigate or prosecute any alcohol or drug abuse patient.[facility] CenterIn the event this information is protected by the Federal Confidentiality of Alcohol and Drug Abuse Patient Records regulations: The Federal rules restrict any use of the information to criminally investigate or prosecute any alcohol or drug abuse patient.[facility] CenterIn the event this information is protected by the Federal Confidentiality of Alcohol and Drug Abuse Patient Records regulations: The Federal rules restrict any use of the information to criminally investigate or prosecute any alcohol or drug abuse patient.[facility] CenterIn the event this information is protected by the Federal Confidentiality of Alcohol and Drug Abuse Patient Records regulations: The Federal rules restrict any use of the information to criminally investigate or prosecute any alcohol or drug abuse patient.[facility] CenterIn the event this information is protected by the Federal Confidentiality of Alcohol and Drug Abuse Patient Records regulations: The Federal rules restrict any use of the information to criminally investigate or prosecute any alcohol or drug abuse patient.[facility] CenterIn the event this information is protected by the Federal Confidentiality of Alcohol and Drug Abuse Patient Records regulations: The Federal rules restrict any use of the information to criminally investigate or prosecute any alcohol or drug abuse patient.[facility]In the event this information is protected by the Federal Confidentiality of Alcohol and Drug Abuse Patient Records regulations: The Federal rules restrict any use of the information to criminally investigate or prosecute any alcohol or drug abuse patient.[facility]In the event this information is protected by the Federal Confidentiality of Alcohol and Drug Abuse Patient Records regulations: The Federal rules restrict any use of the information to criminally investigate or prosecute any alcohol or drug abuse patient.[facility]In the event this information is protected by the Federal Confidentiality of Alcohol and Drug Abuse Patient Records regulations: The Federal rules restrict any use of the information to criminally investigate or prosecute any alcohol or drug abuse patient.[facility]In the event this information is protected by the Federal Confidentiality of Alcohol and Drug Abuse Patient Records regulations: The Federal rules restrict any use of the information to criminally investigate or prosecute any alcohol or drug abuse patient.[facility]In the event this information is protected by the Federal Confidentiality of Alcohol and Drug Abuse Patient Records regulations: The Federal rules restrict any use of the information to criminally investigate or prosecute any alcohol or drug abuse patient.[facility]In the event this information is protected by the Federal Confidentiality of Alcohol and Drug Abuse Patient Records regulations: The Federal rules restrict any use of the information to criminally investigate or prosecute any alcohol or drug abuse patient.[facility]In the event this information is protected by the Federal Confidentiality of Alcohol and Drug Abuse Patient Records regulations: The Federal rules restrict any use of the information to criminally investigate or prosecute any alcohol or drug abuse patient.[facility]In the event this information is protected by the Federal Confidentiality of Alcohol and Drug Abuse Patient Records regulations: The Federal rules restrict any use of the information to criminally investigate or prosecute any alcohol or drug abuse patient.[facility]In the event this information is protected by the Federal Confidentiality of Alcohol and Drug Abuse Patient Records regulations: The Federal rules restrict any use of the information to criminally investigate or prosecute any alcohol or drug abuse patient.[facility]In the event this information is protected by the Federal Confidentiality of Alcohol and Drug Abuse Patient Records regulations: The Federal rules restrict any use of the information to criminally investigate or prosecute any alcohol or drug abuse patient.[facility]In the event this information is protected by the Federal Confidentiality of Alcohol and Drug Abuse Patient Records regulations: The Federal rules restrict any use of the information to criminally investigate or prosecute any alcohol or drug abuse patient.[facility]In the event this information is protected by the Federal Confidentiality of Alcohol and Drug Abuse Patient Records regulations: The Federal rules restrict any use of the information to criminally investigate or prosecute any alcohol or drug abuse patient.[facility]In the event this information is protected by the Federal Confidentiality of Alcohol and Drug Abuse Patient Records regulations: The Federal rules restrict any use of the information to criminally investigate or prosecute any alcohol or drug abuse patient.[facility]In the event this information is protected by the Federal Confidentiality of Alcohol and Drug Abuse Patient Records regulations: The Federal rules restrict any use of the information to criminally investigate or prosecute any alcohol or drug abuse patient.[facility]In the event this information is protected by the Federal Confidentiality of Alcohol and Drug Abuse Patient Records regulations: The Federal rules restrict any use of the information to criminally investigate or prosecute any alcohol or drug abuse patient.[facility]In the event this information is protected by the Federal Confidentiality of Alcohol and Drug Abuse Patient Records regulations: The Federal rules restrict any use of the information to criminally investigate or prosecute any alcohol or drug abuse patient.[facility]In the event this information is protected by the Federal Confidentiality of Alcohol and Drug Abuse Patient Records regulations: The Federal rules restrict any use of the information to criminally investigate or prosecute any alcohol or drug abuse patient.[facility]In the event this information is protected by the Federal Confidentiality of Alcohol and Drug Abuse Patient Records regulations: The Federal rules restrict any use of the information to criminally investigate or prosecute any alcohol or drug abuse patient.[facility]In the event this information is protected by the Federal Confidentiality of Alcohol and Drug Abuse Patient Records regulations: The Federal rules restrict any use of the information to criminally investigate or prosecute any alcohol or drug abuse patient.[facility]In the event this information is protected by the Federal Confidentiality of Alcohol and Drug Abuse Patient Records regulations: The Federal rules restrict any use of the information to criminally investigate or prosecute any alcohol or drug abuse patient.[facility]In the event this information is protected by the Federal Confidentiality of Alcohol and Drug Abuse Patient Records regulations: The Federal rules restrict any use of the information to criminally investigate or prosecute any alcohol or drug abuse patient.[facility]In the event this information is protected by the Federal Confidentiality of Alcohol and Drug Abuse Patient Records regulations: The Federal rules restrict any use of the information to criminally investigate or prosecute any alcohol or drug abuse patient.[facility]In the event this information is protected by the Federal Confidentiality of Alcohol and Drug Abuse Patient Records regulations: The Federal rules restrict any use of the information to criminally investigate or prosecute any alcohol or drug abuse patient.[facility]In the event this information is protected by the Federal Confidentiality of Alcohol and Drug Abuse Patient Records regulations: The Federal rules restrict any use of the information to criminally investigate or prosecute any alcohol or drug abuse patient.[facility]In the event this information is protected by the Federal Confidentiality of Alcohol and Drug Abuse Patient Records regulations: The Federal rules restrict any use of the information to criminally investigate or prosecute any alcohol or drug abuse patient.[facility]In the event this information is protected by the Federal Confidentiality of Alcohol and Drug Abuse Patient Records regulations: The Federal rules restrict any use of the information to criminally investigate or prosecute any alcohol or drug abuse patient.[facility]In the event this information is protected by the Federal Confidentiality of Alcohol and Drug Abuse Patient Records regulations: The Federal rules restrict any use of the information to criminally investigate or prosecute any alcohol or drug abuse patient.[facility]In the event this information is protected by the Federal Confidentiality of Alcohol and Drug Abuse Patient Records regulations: The Federal rules restrict any use of the information to criminally investigate or prosecute any alcohol or drug abuse patient.[facility]In the event this information is protected by the Federal Confidentiality of Alcohol and Drug Abuse Patient Records regulations: The Federal rules restrict any use of the information to criminally investigate or prosecute any alcohol or drug abuse patient.[facility]In the event this information is protected by the Federal Confidentiality of Alcohol and Drug Abuse Patient Records regulations: The Federal rules restrict any use of the information to criminally investigate or prosecute any alcohol or drug abuse patient.[facility]In the event this information is protected by the Federal Confidentiality of Alcohol and Drug Abuse Patient Records regulations: The Federal rules restrict any use of the information to criminally investigate or prosecute any alcohol or drug abuse patient.[facility]In the event this information is protected by the Federal Confidentiality of Alcohol and Drug Abuse Patient Records regulations: The Federal rules restrict any use of the information to criminally investigate or prosecute any alcohol or drug abuse patient.[facility]In the event this information is protected by the Federal Confidentiality of Alcohol and Drug Abuse Patient Records regulations: The Federal rules restrict any use of the information to criminally investigate or prosecute any alcohol or drug abuse patient.[facility]In the event this information is protected by the Federal Confidentiality of Alcohol and Drug Abuse Patient Records regulations: The Federal rules restrict any use of the information to criminally investigate or prosecute any alcohol or drug abuse patient.[facility]In the event this information is protected by the Federal Confidentiality of Alcohol and Drug Abuse Patient Records regulations: The Federal rules restrict any use of the information to criminally investigate or prosecute any alcohol or drug abuse patient.[facility]In the event this information is protected by the Federal Confidentiality of Alcohol and Drug Abuse Patient Records regulations: The Federal rules restrict any use of the information to criminally investigate or prosecute any alcohol or drug abuse patient.[facility]In the event this information is protected by the Federal Confidentiality of Alcohol and Drug Abuse Patient Records regulations: The Federal rules restrict any use of the information to criminally investigate or prosecute any alcohol or drug abuse patient.[facility]In the event this information is protected by the Federal Confidentiality of Alcohol and Drug Abuse Patient Records regulations: The Federal rules restrict any use of the information to criminally investigate or prosecute any alcohol or drug abuse patient.[facility]In the event this information is protected by the Federal Confidentiality of Alcohol and Drug Abuse Patient Records regulations: The Federal rules restrict any use of the information to criminally investigate or prosecute any alcohol or drug abuse patient.[facility]In the event this information is protected by the Federal Confidentiality of Alcohol and Drug Abuse Patient Records regulations: The Federal rules restrict any use of the information to criminally investigate or prosecute any alcohol or drug abuse patient.[facility]In the event this information is protected by the Federal Confidentiality of Alcohol and Drug Abuse Patient Records regulations: The Federal rules restrict any use of the information to criminally investigate or prosecute any alcohol or drug abuse patient.[facility]In the event this information is protected by the Federal Confidentiality of Alcohol and Drug Abuse Patient Records regulations: The Federal rules restrict any use of the information to criminally investigate or prosecute any alcohol or drug abuse patient.[facility]In the event this information is protected by the Federal Confidentiality of Alcohol and Drug Abuse Patient Records regulations: The Federal rules restrict any use of the information to criminally investigate or prosecute any alcohol or drug abuse patient.[facility]In the event this information is protected by the Federal Confidentiality of Alcohol and Drug Abuse Patient Records regulations: The Federal rules restrict any use of the information to criminally investigate or prosecute any alcohol or drug abuse patient.[facility]In the event this information is protected by the Federal Confidentiality of Alcohol and Drug Abuse Patient Records regulations: The Federal rules restrict any use of the information to criminally investigate or prosecute any alcohol or drug abuse patient.[facility]In the event this information is protected by the Federal Confidentiality of Alcohol and Drug Abuse Patient Records regulations: The Federal rules restrict any use of the information to criminally investigate or prosecute any alcohol or drug abuse patient.[facility]In the event this information is protected by the Federal Confidentiality of Alcohol and Drug Abuse Patient Records regulations: The Federal rules restrict any use of the information to criminally investigate or prosecute any alcohol or drug abuse patient.[facility]In the event this information is protected by the Federal Confidentiality of Alcohol and Drug Abuse Patient Records regulations: The Federal rules restrict any use of the information to criminally investigate or prosecute any alcohol or drug abuse patient.[facility]In the event this information is protected by the Federal Confidentiality of Alcohol and Drug Abuse Patient Records regulations: The Federal rules restrict any use of the information to criminally investigate or prosecute any alcohol or drug abuse patient.[facility]In the event this information is protected by the Federal Confidentiality of Alcohol and Drug Abuse Patient Records regulations: The Federal rules restrict any use of the information to criminally investigate or prosecute any alcohol or drug abuse patient.[facility]In the event this information is protected by the Federal Confidentiality of Alcohol and Drug Abuse Patient Records regulations: The Federal rules restrict any use of the information to criminally investigate or prosecute any alcohol or drug abuse patient.[facility]In the event this information is protected by the Federal Confidentiality of Alcohol and Drug Abuse Patient Records regulations: The Federal rules restrict any use of the information to criminally investigate or prosecute any alcohol or drug abuse patient.[facility]In the event this information is protected by the Federal Confidentiality of Alcohol and Drug Abuse Patient Records regulations: The Federal rules restrict any use of the information to criminally investigate or prosecute any alcohol or drug abuse patient.[facility]In the event this information is protected by the Federal Confidentiality of Alcohol and Drug Abuse Patient Records regulations: The Federal rules restrict any use of the information to criminally investigate or prosecute any alcohol or drug abuse patient.[facility]In the event this information is protected by the Federal Confidentiality of Alcohol and Drug Abuse Patient Records regulations: The Federal rules restrict any use of the information to criminally investigate or prosecute any alcohol or drug abuse patient.[facility] Center[facility] the event this information is protected by the Federal Confidentiality of Alcohol and Drug Abuse Patient Records regulations: The Federal rules restrict any use of the information to criminally investigate or prosecute any alcohol or drug abuse patient.[facility] CenterIn the event this information is protected by the Federal Confidentiality of Alcohol and Drug Abuse Patient Records regulations: The Federal rules restrict any use of the information to criminally investigate or prosecute any alcohol or drug abuse patient.[facility] CenterIn the event this information is protected by the Federal Confidentiality of Alcohol and Drug Abuse Patient Records regulations: The Federal rules restrict any use of the information to criminally investigate or prosecute any alcohol or drug abuse patient.[facility] CenterIn the event this information is protected by the Federal Confidentiality of Alcohol and Drug Abuse Patient Records regulations: The Federal rules restrict any use of the information to criminally investigate or prosecute any alcohol or drug abuse patient.[facility] CenterIn the event this information is protected by the Federal Confidentiality of Alcohol and Drug Abuse Patient Records regulations: The Federal rules restrict any use of the information to criminally investigate or prosecute any alcohol or drug abuse patient.[facility] CenterIn the event this information is protected by the Federal Confidentiality of Alcohol and Drug Abuse Patient Records regulations: The Federal rules restrict any use of the information to criminally investigate or prosecute any alcohol or drug abuse patient.[facility] CenterIn the event this information is protected by the Federal Confidentiality of Alcohol and Drug Abuse Patient Records regulations: The Federal rules restrict any use of the information to criminally investigate or prosecute any alcohol or drug abuse patient.[facility] CenterIn the event this information is protected by the Federal Confidentiality of Alcohol and Drug Abuse Patient Records regulations: The Federal rules restrict any use of the information to criminally investigate or prosecute any alcohol or drug abuse patient.[facility] CenterIn the event this information is protected by the Federal Confidentiality of Alcohol and Drug Abuse Patient Records regulations: The Federal rules restrict any use of the information to criminally investigate or prosecute any alcohol or drug abuse patient.[facility] CenterIn the event this information is protected by the Federal Confidentiality of Alcohol and Drug Abuse Patient Records regulations: The Federal rules restrict any use of the information to criminally investigate or prosecute any alcohol or drug abuse patient.[facility] CenterIn the event this information is protected by the Federal Confidentiality of Alcohol and Drug Abuse Patient Records regulations: The Federal rules restrict any use of the information to criminally investigate or prosecute any alcohol or drug abuse patient.[facility] CenterIn the event this information is protected by the Federal Confidentiality of Alcohol and Drug Abuse Patient Records regulations: The Federal rules restrict any use of the information to criminally investigate or prosecute any alcohol or drug abuse patient.[facility] CenterIn the event this information is protected by the Federal Confidentiality of Alcohol and Drug Abuse Patient Records regulations: The Federal rules restrict any use of the information to criminally investigate or prosecute any alcohol or drug abuse patient.[facility] FOR RECORDS PERTAINING TO PATIENTS WHO ARE [...] BE BASED ON THE PRIMARY CLINICAL RECORDS. [facility] [employer] [facility]. provides no warranty or guarantee of the accuracy or completeness of information in this document.
[2025-04-02 10:16] LABS: Alanine Aminotransferase 21 U/L (16-63); Albumin Globulin Ratio 0.7; Albumin Level 3.1 g/dL (3.4-5.0); Alkaline Phosphatase 101 U/L (46-116); Aspartate Amino Transferase 13 U/L (15-37); Globulin 4.6 g/dL; Total Protein 7.7 g/dL (6.4-8.2)
[2025-04-02 10:19] LABS: Lactate/Lactic Acid 1.8 mmol/L (0.4-2.0)
[2025-04-02] MEDS: AMPICILLIN SODIUM/SULBACTAM NA 3 GM in 0.9 % SODIUM CHLORIDE 100 ML IV ×2 (12:19→21:54)
--- OUTSIDE RECORDS SUMMARY | 2025-04-02 12:39 | XMS_ITS | CCD ---
Author Organization [facility] Inform ion Partnership [facility] Care Team Providers Care Safety Council Director Name Role Phone Loida, Yuli E Unavailable Ball, Yuli E Unavailable Karthik Calloway Unavailable [phone] Unavailable Primary Care Provider Unavailabl e Loida, Yuli E Primary Care Provider Loida, Yuli E Unavailable Karthik Calloway Unavailable Ball, Yuli E Primary Care Provider Ball, Yuli E Unavailable Karthik Calloway Unavailable Unavailabl e Ball DO, Yuli E Primary Care Provider Ball DO, Yuli E Unavailable [phone] Karthik Calloway MD Unavailable Unavail able REQUEST, NONE LISTED Consulting Unavaila ble REQUEST, DR RUBIO LISTED Admitting Unavaila ble BALL, DR ROLDAN Primary Care Unavailable REQUEST, NONE LISTED Attending Unavaila ble BALL, DR ROLDAN Attending Unavailable LOIDA, DR ROLDAN Consulting Unavailable BALL, DR ROLDAN Admitting Unavailable Ball DO, Yuli E Primary Care Provider Ball DO, Yuli E Unavailable [phone] Karthik Calloway MD Unavailable Unavail able Yuli Mariscal Unavailable MARGIE EDOUARD Referring Unavailab le MARGIE EDOUARD Admitting Unavailab le LOIDA, YULI E Primary Care Unavailable LOIDA, YULI E Primary Care Unavailable GRECIA FAITH Attending Unavailable LOIDA, YULI E Primary Care Unavailable MARGIE EODUARD Attending Unavailab le BALL, YULI E Primary [...] Unavailable Samsa, DO Calin P Attending Provider [phone] Samsa, Calin P Admitting Unavailable Samsa, Calin [...] Primary Care Unavailable Jere Sales MD Unavailable [phone] Unavailable Primary Care Provider UnavailJose Antonio Erickson [...] Care Unavailable ZABRINA SUAREZ Referring Unavailable LOIDA YULI E Primary Care Unavailable XIOMARA LY [...] Drug Allergy 12-16-19 21 Mental Status Change [facility] (20 sources) acetaminophen / oxyCODONE; Translations: [OXYCODONE-ACETAM INOPHEN] Propensity to adverse reactions to drug 03-13-20 16 Other (See Comments), Unknown [facility] Work Phone: (20 sources) traMADol; Translations: [TRAMADOL] Propensity to adverse reactions to drug 08-25-19 15 Shortness Of Breath, Mental Status Change, Unknown [facility] Work Phone: (1 source) traMADol Drug Allergy 07-26-19 16 [facility] (1 source) traMADol Drug Allergy 08-13-19 24 [facility] Repository (7 sources) Adhesive Tape-Silicones; Translations: [ADHESIVE TAPE-SILICONES] Drug Intolerance 02-03-20 25 Intolerance [facility] Medications Current Medications Medication Drug Class(es) Dates Sig (Normalized) Sig (Original) AeroChamber Mini Chamber - (1 source) Start: 07-23-2023 AeroChamber Mini Chamber - Use w/ MDI inhaled every 6 hours as needed for 30 days Jul, Active [id number] 60 actuat albuterol 0.09 mg/actuat metered dose [...] Start: 07-07-2023 take 1 capsule by mo [facility] every eight hours Benzonatate 100 MG 1 [...] Calcium (20 sources) Phosphate Binder, Calcium calcium tfh-yjk-Q3-Zn-[employer]-kian 250 mg-40 mg- 125 unit-3.75mg tab [...] Active Dextromethorphan / guaiFENesin (8 sources) Uncompetitive Z-cwazdg-I-aspartat e Receptor Antagonist, Sigma-1 Agonist Dextromethorphan-gua iFENesin [...] a day for 7 days Jun, Not-Taking/PRN [place] 3 (11 sources) [place] 3 Active [place]-3 Fatty Acids (4 sources) Start: 08-13-19 24 take 500 mg by mouth once daily [place]-3 Fatty Acids Active 500 MG PO Daily August 13, 2023 1:00am [place]-3 Fatty Acids 500 mg capsule (1 source) Start: 08-13-19 24 take 1 capsule by mouth once daily [place]-3 Fatty Acids 500 mg capsule Active 500 [...] 2 09/04/2024 10/04/2024 Active vit A-vit C-vit M-xbhk-rfddif (EYE VITAMIN AND MINERALS) 7,160-113-100 jiyt-wt-lpub Tab (4 sources) take 1 tablet by mouth once daily in the morning vit A-vit C-vit L-xqqy-lwngph (EYE VITAMIN AND MINERALS) 7,160-113-100 mxxo-hq-vhja Tab Take 1 tablet by mouth every morning . 0 Active vit A-vit C-vit J-iqij-rimbst 7,160-113-100 lbbv-ll-pvpn Tab (12 sources) take 1 tablet by mouth once daily in the morning vit A-vit C-vit Y-mcfl-imyplu 7,160-113-100 ygod-dg-pdef Tab Take 1 tablet by mouth every morning . Active take 1 tablet by av th once daily in the morning vit A-vit C-vit E-rhct-ajxniv 7,160-113- 100 egfr-of-qasp Tab Take 1 tablet by mouth every morning . 0 Active Vitamin C Oral (1 source) take 1 tablet by mouth once daily in the morning ASCORBATE CALCIUM (VITAMIN C ORAL) Take 1 tablet by mouth every morning . Active Vit A 7,160 Unit-Vit C 113 Mg-Vit E 100 Figk-Ppro-Lobgss Tablet (2 sources) take 1 tablet by mouth once daily in the morning vit A-vit C-vit B-wtpa-fduypz (EYE VITAMIN AND MINERALS) 7,160-113-100 lskc-pz-unsc Tab Take 1 tablet by mouth every [...] . 4 capsule 1 01/28/2024 Active amylase 260989 unt / lipase 27585 unt / protease [id number] unt delayed release oral capsule (9 sources) Start: 06-12-2024 End: 07-21-2024 take 2 capsules by mouth three times daily at mealtime ujjrlu-ncvgsrmx-dhwpawx (CREON) 36,000-114,000- 180,000 unit delayed release capsule [...] CALCIUM-MAGNESI UM-ZINC ORAL (18 sources) End: 05-18-2024 AXGZJIZ-VJTPSCOAM-RHSL ORAL Take by mouth. 05/18/2024 Discontinued CALCIUM-MAGNESIU M-ZINC ORAL Take by mouth. Active cephalexin 500 mg oral capsule (20 sources) Cephalosporin Antibacterial Start: 01-10-2023 take 1 capsule by mouth every eight hours Cephalexin 500 MG 1 capsule Orally tid for 5 days Dec, Not-Taking/PRN Start: 07-11-2022 take 1 capsule by [facility] twice daily as needed Cephalexin 500 [...] 10:20pm Start: 12-22-2021 take 1 capsule by [facility] once daily as needed Omeprazole 20MG Omeprazole 20MG, 1 (one) Capsule Capsule daily on empty stomach followed in 30 minutes by bkt # 0, 12/22/2021, No Refill. Active Oral daily on empty stomach followed in 30 minutes by bkt for 0 *[facility]* 08 Dec, 2021 Not-Taking/PRN Start: [...] tablet 0 11/23/2023 11/30/2023 polyethylene glycol 3350 67497 mg powder for oral solution (4 sources) [...] PRN ED for 30 *Pick strength-form from [employer] for eRX* Dec, Not-Taking/PRN sucralfate 1000 mg [...] 5 08-23-2014 Other aftercare (1 source) Other residential (current) drug therapy Episodic Other aftercare (5 [...] 2V FRONTAL/LATon XR CHEST 2V FRONTAL/LAT Normal [facility] Basic metabolic 2000 panelon 03-26-2025 Anion gap [Moles/Vol] 13 mmol/L Normal 8-15 [facility] Comment on above: Order Comment: Speci men Type: BLOOD SPECIMEN Ordering Facility: [facility] Address: [address] [place] [address] Performed By: #### 2 4321-2 #### [facility] CLIA [id number] [address] [place] [address] [place] Calcium [Mass/Vol] 8.7 mg/dL Normal 8.5-10.2 [facility] Comment on above: Order Comment: Speci men Type: BLOOD SPECIMEN Ordering Facility: [facility] Address: [address] [place] [address] Performed By: #### 2 4321-2 #### [facility] CLIA [id number] [address] [place] [address] [place] Chloride [Moles/Vol] 96 mmol/L Low 98-107 [facility] Comment on above: Order Comment: Speci men Type: BLOOD SPECIMEN Ordering Facility: [facility] Address: [address] [place] [address] Performed By: #### 2 4321-2 #### [facility] [place] [id number] [place] [address] [place] CO2 [Moles/Vol] 24 mmol/L Normal 22-30 [facility] Comment on above: Order Comment: Speci men Type: BLOOD SPECIMEN Ordering Facility: [facility] Address: [address] [place] [address] Performed By: #### 2 4321-2 #### [facility] IA [id number] [address] [place] [address] [place] Creatinine [Mass/Vol] 1.59 mg/dL High 0.73-1.22 [facility] Comment on above: Order Comment: Speci men Type: BLOOD SPECIMEN Ordering Facility: [facility] Address: [address] [place] [address] Performed By: #### 2 4321-2 #### [facility] CLIA [id number] [address] [place], [place] [id number] [place] eGFRcr SerPlBld CKD-EPI 2020 45 mL/min/1.73m??? Low >=60 [facility] Comment on above: Order Comment: Speci men Type: BLOOD SPECIMEN Ordering Facility: [facility] Address: [address] [place] [address] Result Comment: Kristel mated Glomerular Filtration Rate [...] GFR. Performed By: #### 2 4321-2 #### [facility] CLIA [id number] [address] [place] [address] [place] Glucose [Mass/Vol] 110 mg/dL High 74-99 [facility] Comment on above: Order Comment: Alexandru campos Type: BLOOD SPECIMEN Ordering Facility: [facility] Address: [address] [place] [address] Result Comment: The [place] Diabetes Association (ADA) provides guidance for cutoff [...] Standards of Medical Care in Diabetes 2016, [place] [employer] Association. Diabetes Care. 2016.39(Suppl 1). Performed By: #### 2 4321-2 #### [facility] CLIA [id number] [address] [place] [address] [place] Potassium [Moles/Vol] 3.8 mmol/L Normal 3.7-5.1 [facility] Comment on above: Order Comment: Alexandru campos Type: BLOOD SPECIMEN Ordering Facility: [facility] Address: [address] [place] [address] Performed By: #### 2 4321-2 #### [facility] CLIA [id number] [address] [place] [address] [place] Sodium [Moles/Vol] 133 mmol/L Low 136-144 [facility] Comment on above: Order Comment: Speci men Type: BLOOD SPECIMEN Ordering Facility: [facility] Address: [address] [place] [address] Performed By: #### 2 4321-2 #### [facility] CLIA [id number] [address] [place] [address] [place] Urea nitrogen [Mass/Vol] 34 mg/dL High 9-24 [facility] Comment on above: Order Comment: Speci men Type: BLOOD SPECIMEN Ordering Facility: [facility] Address: [address] [place] [address] Performed By: #### 2 4321-2 #### [facility] CLIA [id number] [address] [place] [address] [place] PLATELET AGGREGATIONon 03-26 Platelet aggregation ADP induced 10 umol/L (PRP) [Rel units/Vol] 64 % Max Normal 58-93 [facility] Comment on above: Order Comment: Speci men Type: BLOOD SPECIMEN Ordering Facility: [facility] Address: [address] [place] [address] Performed By: #### L [id number], [id number] #### [facility] CLIA [id number] [address] [place] [address] [place] Platelet aggregation ADP induced 20 umol/mL (PRP) [Rel units/Vol] 73 % Max Normal 71-94 [facility] Comment on above: Order Comment: Speci men Type: BLOOD SPECIMEN Ordering Facility: [facility] Address: [address] [place] [address] Performed By: #### L [id number], [id number] #### [facility] CLIA [id number] [address] [place] [address] [place] Platelet aggregation ADP induced ATP secretion 10 umol/L (Bld) [Rel units/Vol] 0.8 nM Normal 0.1-1.4 [facility] Comment on above: Order Comment: Speci men Type: BLOOD SPECIMEN Ordering Facility: [facility] Address: [address] [place] [address] Performed By: #### L [id number], [id number] #### [facility] CLIA [id number] [address] [place] [address] [place] Platelet aggregation ADP induced ATP secretion 5 umol/L (Bld) [Rel units/Vol] 0.4 nM Normal 0.1-1.3 [facility] Comment on above: Order Comment: Speci men Type: BLOOD SPECIMEN Ordering Facility: [facility] Address: [address] [place] [address] Performed By: #### L [id number], [id number] #### [facility] CLIA [id number] [address] [place] [address] [place] Platelet aggregation ADP induced High dose (PRP) [Rel units/Vol] 57 % Max Low 65-93 [facility] Comment on above: Order Comment: Speci men Type: BLOOD SPECIMEN Ordering Facility: [facility] Address: [address] [place] [address] Performed By: #### L [id number], [id number] #### [facility] CLIA [id number] [address] [place] [address] [place] Platelet aggregation arachidonate induced 500 ug/mL (PRP) [Rel units/Vol] 80 % Max Normal 75-100 [facility] Comment on above: Order Comment: Speci men Type: BLOOD SPECIMEN Ordering Facility: [facility] Address: [address] [place] [address] Performed By: #### L [id number], [id number] #### [facility] CLIA [id number] [address] [place] [address] OF [place] Platelet aggregation arachidonate induced ATP secretion 500 umol/L (Bld) [Rel units/Vol] 0.7 nM Normal 0.4-2.0 [facility] Comment on above: Order Comment: Speci men Type: BLOOD SPECIMEN Ordering Facility: [facility] Address: [address] [place] [address] Performed By: #### L [id number], [id number] #### [facility] CLIA [id number] [address] [place] [address] [place] Platelet aggregation collagen induced ATP secretion 1 ug/mL (Bld) [Rel units/Vol] 0.6 nM Normal 0.4-1.7 [facility] Comment on above: Order Comment: Speci men Type: BLOOD SPECIMEN Ordering Facility: [facility] Address: [address] [place] [address] Performed By: #### L [id number], [id number] #### [facility] CLIA [id number] [address] [place] [address] [place] Platelet aggregation collagen induced Qn (Bld) 70 % Max Low 74-99 [facility] Comment on above: Order Comment: Speci men Type: BLOOD SPECIMEN Ordering Facility: [facility] Address: [address] [place] [address] Performed By: #### L [id number], [id number] #### [facility] CLIA [id number] [address] [place] [address] [place] Platelet aggregation EPINEPHrine induced (PRP) [Rel units/Vol] 73 % Max Normal 70-97 [facility] Comment on above: Order Comment: Speci men Type: BLOOD SPECIMEN Ordering Facility: [facility] Address: [address] [place] [address] Performed By: #### L [id number], [id number] #### [facility] CLIA [id number] [address] [place] [address] [place] Platelet aggregation EPINEPHrine induced 100 umol/L (PRP) [Rel units/Vol] 76 % Max Normal 70-99 [facility] Comment on above: Order Comment: Speci men Type: BLOOD SPECIMEN Ordering Facility: [facility] Address: [address] [place] [address] Performed By: #### L [id number], [id number] #### [facility] CLIA [id number] [address] [place] [address] [place] Platelet aggregation ristocetin induced 1200 ug/mL (PRP) [Rel units/Vol] 82 % Max Normal 76-100 [facility] Comment on above: Order Comment: Speci men Type: BLOOD SPECIMEN Ordering Facility: [facility] Address: [address] [place] [address] Performed By: #### L [id number], [id number] #### [facility] CLIA [id number] [address] [place] [address] [place] Platelet aggregation ristocetin induced 1500 ug/mL (PRP) [Rel units/Vol] 85 % Max Normal 76-100 [facility] Comment on above: Order Comment: Speci men Type: BLOOD SPECIMEN Ordering Facility: [facility] Address: [address] [place] [address] Performed By: #### L [id number], [id number] #### [facility] CLIA [id number] [address] [place] [address] [place] Platelet aggregation ristocetin induced 600 ug/mL (PRP) [Rel units/Vol] 4 % Max Normal 0-9 [facility] Comment on above: Order Comment: Speci men Type: BLOOD SPECIMEN Ordering Facility: [facility] Address: [address] [place] [address] Performed By: #### L [id number], [id number] #### [facility] CLIA [id number] [address] [place] [address] [place] [facility] Platelet aggregation ristocetin induced 900 ug/mL (PRP) [Rel units/Vol] 75 % Max Normal 50-100 [facility] Comment on above: Order Comment: Speci men Type: BLOOD SPECIMEN Ordering Facility: [facility] Address: [address] [place] [address] Performed By: #### L [id number], [id number] #### [facility] CLIA [id number] [address] [place] [address] [place] Platelet aggregation thrombin induced ATP secretion 1 U/mL (Bld) [Rel units/Vol] 1.0 nM Normal >0.5 [facility] Comment on above: Order Comment: Alexandru campos Type: BLOOD SPECIMEN Ordering Facility: [facility] Address: [address] [place] [address] Performed By: #### L [id number], [id number] #### [facility] CLIA [id number] [address] [place] [address] [place] Platelet aggregation thrombin induced ATP secretion 5 U/mL (Bld) [Rel units/Vol] 0.4 nM Normal 0.2-1.4 [facility] Comment on above: Order Comment: Alexandru campos Type: BLOOD SPECIMEN Ordering Facility: [facility] Address: [address] [place] [address] Performed By: #### L [id number], [id number] #### [facility] CLIA [id number] [address] [place] [address] [place] PLATELET AGGREGATION INTERPo n 03-26-2025 Heparin Ab Platelet aggregation Ql (PPP) Reviewed by Edmund Lehman MD [facility] Comment on above: Order Comment: Alexandru campos Type: BLOOD SPECIMEN Ordering Facility: [facility] Address: [address] [place] [address] Performed By: #### L [id number], [id number] #### [facility] CLIA [id number] [address] [place] [address] [place] Platelet aggregation (PPP) [Interp] Normal [facility] Comment on above: Order Comment: Alexandru campos Type: BLOOD SPECIMEN Ordering Facility: [facility] Address: [address] [place] [address] Result Comment: Kassidy hardwick - see comment [...] and medication history. Performed By: #### L [id number], [id number] #### [facility] CLIA [id number] [address] [place] [address] [place] CNNURSEon 03-24-2025 CNNURSE Normal [facility] HISTORY PHYSICALon 5 HISTORY PHYSICAL Normal [facility] NURSING PROGon 03-24-2025 NURSING PROG Normal [facility] NURSING PROG Normal [facility] Upper GI endoscopyon 025 Upper GI endoscopy Normal [facility] NURSING PROGon 03-17-2025 NURSING PROG Normal [facility] XR Foot - left 3 [facility] Result: 3 vi ews left foot: Weight-bearing: DP, oblique, lateral: 03/12/2025: Unremarkable for acute osseous or joint pathology. Unremarkable for fracture or stress fracture changes. There are no distinct lytic or erosive changes of the distal phalanx 2nd digit. 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 [facility] Radiology Study observation (narrative) [facility] Comprehensive metabolic 2000 panelon 03-05-2025 Albumin [Mass/Vol] 4.0 g/dL Normal 3.9-4.9 [facility] Comment on above: Order Comment: Speci men Type: BLOOD SPECIMENOrdering Facility: [facility] Address: [address] [place] [address] Performed By: #### 2 4323-8 ####[facility] [id number] [place] [address] ALP [Catalytic activity/Vol] 117 U/L High 38-113 [facility] Comment on above: Order Comment: Speci men Type: BLOOD SPECIMENOrdering Facility: [facility] Address: [address] [place] [address] Performed By: #### 2 4323-8 ####[facility] [id number] [place] [address] ALT [Catalytic activity/Vol] 16 U/L Normal 10-54 [facility] Comment on above: Order Comment: Speci men Type: BLOOD SPECIMENOrdering Facility: [facility] Address: [address] [place] [address] Performed By: #### 2 4323-8 ####[facility] [id number] [place] [address] Anion gap [Moles/Vol] 10 mmol/L Normal 8-15 [facility] Comment on above: Order Comment: Speci men Type: BLOOD SPECIMENOrdering Facility: [facility] Address: [address] [place] [address] Performed By: #### 2 4323-8 ####[facility] [id number] [place] [address] AST [Catalytic activity/Vol] U/L Low 14-40 [facility] Comment on above: Order Comment: Speci men Type: BLOOD SPECIMENOrdering Facility: [facility] Address: [address] [place] [address] Performed By: #### 2 4323-8 ####[facility] [id number] [place] [address] Bilirubin [Mass/Vol] 0.6 mg/dL Normal 0.2-1.3 [facility] Comment on above: Order Comment: Speci men Type: BLOOD SPECIMENOrdering Facility: [facility] Address: [address] [place] [address] Performed By: #### 2 4323-8 ####[facility] [id number] [place] [address] Calcium [Mass/Vol] 8.7 mg/dL Normal 8.5-10.2 [facility] Comment on above: Order Comment: Speci men Type: BLOOD SPECIMENOrdering Facility: [facility] Address: [address] [place] [address] Performed By: #### 2 4323-8 ####[facility] [id number] [place] [address] Chloride [Moles/Vol] 99 mmol/L Normal 98-107 [facility] Comment on above: Order Comment: Speci men Type: BLOOD SPECIMENOrdering Facility: [facility] Address: [address] [place] [address] Performed By: #### 2 4323-8 ####[facility] [id number] [place] [address] CO2 [Moles/Vol] 23 mmol/L Normal 22-30 [facility] Comment on above: Order Comment: Speci men Type: BLOOD SPECIMENOrdering Facility: [facility] Address: [address] [place] [address] Performed By: #### 2 4323-8 ####[facility] [id number] [place] [address] Creatinine [Mass/Vol] 1.23 mg/dL High 0.73-1.22 [facility] Comment on above: Order Comment: Speci men Type: BLOOD SPECIMENOrdering Facility: [facility] Address: [address] [place] [address] Performed By: #### 2 4323-8 ####[facility] [id number] [place] [address] eGFRcr SerPlBld CKD-EPI 2020 62 mL/min/1.73m??? Normal >=60 [facility] Comment on above: Order Comment: Alexandru campos Type: BLOOD SPECIMENOrdering Facility: [facility] Address: [address] [place] [address] Result Comment: Kristel mated Glomerular Filtration Rate [...] actual GFR. Performed By: #### 2 4323-8 ####[facility] [id number] [place] [address] Glucose [Mass/Vol] 144 mg/dL High 74-99 [facility] Comment on above: Order Comment: Alexandru campos Type: BLOOD SPECIMENOrdering Facility: [facility] Address: [address] [place] [address] Result Comment: The [place] Diabetes Association (ADA) provides guidance for cutoff [...] Standards of Medical Care in Diabetes 2016, [place] [employer]. Diabetes Care. 2016.39(Suppl 1). Performed By: #### 2 4323-8 ####[facility] [id number] [place] [address] Potassium [Moles/Vol] 4.9 mmol/L Normal 3.7-5.1 [facility] Comment on above: Order Comment: Speci men Type: BLOOD SPECIMENOrdering Facility: [facility] Address: [address] [address] [place], [place] [address] Performed By: #### 2 4323-8 ####[facility] LABCLIA [id number] [place] [address] Protein [Mass/Vol] 6.8 g/dL Normal 6.3-8.0 [facility] Comment on above: Order Comment: Speci men Type: BLOOD SPECIMENOrdering Facility: [facility] Address: [address] [place] [address] Performed By: #### 2 4323-8 ####[facility] LABCLIA [id number] [place] [address] Sodium [Moles/Vol] 132 mmol/L Low 136-144 [facility] Comment on above: Order Comment: Speci men Type: BLOOD SPECIMENOrdering Facility: [facility] Address: [address] [place] [address] Performed By: #### 2 4323-8 ####[facility] LABCLIA [id number] [place] [address] Urea nitrogen [Mass/Vol] 22 mg/dL Normal 9-24 [facility] Comment on above: Order Comment: Speci men Type: BLOOD SPECIMENOrdering Facility: [facility] Address: [address] [place], [place] [address] Performed By: #### 2 4323-8 ####[facility] LABCLIA [id number] [place] [address] CNPNon 03-04-2025 CNPN Normal [facility] CNOVon 02-25-2025 CNOV Normal [facility] CNPTOUTREACHon 02-25-2025 CNPTOUTREACH Normal [facility] Laboratory - Hematology and Cell countson 02-25-2025 Hemoglobin Ql (U) Negative Negative [facility] Laboratory - Urinalysison Protein Ql (U) Negative Negative mg/dL [facility] No Panel Informationon 02-25 BILIRUBIN UA (POCT) Negative Negative [facility] CLARITY UA (POCT) Clear [facility] COLOR UA (POCT) Light yellow [facility] GLUCOSE UA (POCT) Negative Negative mg/dL [facility] KETONE UA (POCT) Negative Negative mg/dL [facility] LEUKOCYTES UA (POCT) Negative Negative [facility] NITRITE UA (POCT) Negative Negative [facility] PH UA (POCT) 7.0 4.5 - 8.0 [facility] SPECIFIC GRAVITY UA (POCT) 1.015 1.005 - 1.030 [facility] UROBILINOGEN UA (POCT) 0.2 Jolie l E.U./dL [facility] Location:[address] POINT OF CARE [facility] No Panel Informationon 02-19 IMPRESSION: Cirrhotic liver morphology. No lesion. Patent hepatic vasculature with appropriately directed flow. Small volume abdominal ascites around the liver and in right lower quadrant. 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: [employer] Transcribe Date/Time: Feb 19 2025 1:53P Dictated by : LISBETH REBOLLAR MD This examination was interpreted and the report reviewed and electronically signed by: LONNIE ANN MD on Feb 19 2025 3:15PM [facility] DIVISION OF RADIOLOGY Radiology Study observation (narrative) [facility] No Panel InformationOrdered By: Ccf Provider on 02-19-2025 [facility] US ABD LIVER VASCULARon US ABD LIVER VASCULAR Normal [facility] US DOPPLER COMPLETEon 2024 US DOPPLER COMPLETE Normal [facility] US.doppler Abdominal vessels on 02-19-2025 * * *Final Report* * * DATE OF EXAM: Feb 19 2025 1:47PM RITA 1233 - US ABD LIVER VASCULAR / PROCEDURE REASON: Other ascites * * * * Physician Interpretation * * * * EXAMINATION: LIVER VASCULAR ULTRASOUND WITH DOPPLER IMAGING CLINICAL HISTORY: [place] liver biopsy 02/02/2025: Hepatic parenchyma with zone [...] phasic wave form. DIVISION OF RADIOLOGY Provider, [facility] - 02/19/2025 * * *Final Report* * * DATE OF EXAM: Feb 19 2025 1:47PM RITA 1233 - US ABD LIVER VASCULAR / PROCEDURE REASON: Other ascites * * * * Physician Interpretation * * * * EXAMINATION: LIVER VASCULAR ULTRASOUND WITH DOPPLER IMAGING CLINICAL HISTORY: [place] liver biopsy 02/02/2025: Hepatic parenchyma with zone [...] the liver and in right lower quadrant. 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: PSCB Transcribe Date/Time: Feb 19 2025 1:53P Dictated by : LISBETH REBOLLAR MD This examination was interpreted and the report reviewed and electronically signed by: LONNIE ANN MD on Feb 19 2025 3:15PM [facility].doppler Unspecified body regionon 02-19-2025 * * *Final Report* * * DATE OF EXAM: Feb 19 2025 1:47PM RITA 1033 - US DOPPLER COMPLETE / PROCEDURE REASON: Other ascites * * * * Physician Interpretation * * * * EXAMINATION: LIVER VASCULAR ULTRASOUND WITH DOPPLER IMAGING CLINICAL HISTORY: [place] liver biopsy 02/02/2025: Hepatic parenchyma with zone [...] form. DIVISION OF RADIOLOGY Provider, [facility] - 02/19/2025 * * *Final Report* * * DATE OF EXAM: Feb 19 2025 1:47PM RITA 1033 - US DOPPLER COMPLETE / PROCEDURE REASON: Other ascites * * * * Physician Interpretation * * * * EXAMINATION: LIVER VASCULAR ULTRASOUND WITH DOPPLER IMAGING CLINICAL HISTORY: [place] liver biopsy 02/02/2025: Hepatic parenchyma with zone [...] the liver and in right lower quadrant. 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[facility] Transcribe Date/Time: Feb 19 2025 1:53P Dictated by : LISBETH REBOLLAR MD This examination was interpreted and the report reviewed and electronically signed by: LONNIE ANN MD on Feb 19 2025 3:15PM EST [facility] metabolic 2000 panelon 02-11-2025 Albumin [Mass/Vol] 4.0 g/dL Normal 3.9-4.9 [facility] Comment on above: Order Comment: Speci men Type: BLOOD SPECIMENOrdering Facility: [facility] Address: [address] [place] [address] Performed By: #### 2 4323-8 ####[facility] LABCLIA [id number] [place] [address] ALP [Catalytic activity/Vol] 106 U/L Normal 38-113 [facility] Comment on above: Order Comment: Speci men Type: BLOOD SPECIMENOrdering Facility: [facility] Address: [address] [place] [address] Performed By: #### 2 4323-8 ####[facility] LABCLIA [id number] [place] [address] ALT [Catalytic activity/Vol] 17 U/L Normal 10-54 [facility] Comment on above: Order Comment: Speci men Type: BLOOD SPECIMENOrdering Facility: [facility] Address: [address] [place] [address] Performed By: #### 2 4323-8 ####[facility] LABCLIA [id number] [place] [address] Anion gap [Moles/Vol] 12 mmol/L Normal 8-15 [facility] Comment on above: Order Comment: Speci men Type: BLOOD SPECIMENOrdering Facility: [facility] Address: [address] [place] [address] Performed By: #### 2 4323-8 ####[facility] LABCLIA [id number] [place] [address] AST [Catalytic activity/Vol] U/L Low 14-40 [facility] Comment on above: Order Comment: Speci men Type: BLOOD SPECIMENOrdering Facility: [facility] Address: [address] [place] [address] Performed By: #### 2 4323-8 ####[facility] LABCLIA [id number] [place] [address] Bilirubin [Mass/Vol] 0.5 mg/dL Normal 0.2-1.3 [facility] Comment on above: Order Comment: Speci men Type: BLOOD SPECIMENOrdering Facility: [facility] Address: [address] [place] [address] Performed By: #### 2 4323-8 ####[facility] LABCLIA [id number] [place] [address] Calcium [Mass/Vol] 9.2 mg/dL Normal 8.5-10.2 [facility] Comment on above: Order Comment: Speci men Type: BLOOD SPECIMENOrdering Facility: [facility] Address: [address] [place] [address] Performed By: #### 2 4323-8 ####[facility] LABCLIA [id number] [place] [address] Chloride [Moles/Vol] 100 mmol/L Normal 98-107 [facility] Comment on above: Order Comment: Speci men Type: BLOOD SPECIMENOrdering Facility: [facility] Address: [address] [place] [address] Performed By: #### 2 4323-8 ####[facility] LABCLIA [id number] [place] [address] CO2 [Moles/Vol] 23 mmol/L Normal 22-30 [facility] Comment on above: Order Comment: Speci men Type: BLOOD SPECIMENOrdering Facility: [facility] Address: [address] [place] [address] Performed By: #### 2 4323-8 ####[facility] LABCLIA [id number] [place] [address] Creatinine [Mass/Vol] 1.26 mg/dL High 0.73-1.22 [facility] Comment on above: Order Comment: Alexandru beth Type: BLOOD SPECIMENOrdering Facility: [facility] Address: [address] [place] [id number] Performed By: #### 2 4323-8 ####[facility] LABCLIA [id number] [place] [address] eGFRcr SerPlBld CKD-EPI 2020 60 mL/min/1.73m??? Normal >=60 [facility] Comment on above: Order Comment: Alexandru beth Type: BLOOD SPECIMENOrdering Facility: [facility] Address: [address] [place] [address] Result Comment: Kristel mated Glomerular Filtration Rate [...] actual GFR. Performed By: #### 2 4323-8 ####[facility] LABCLIA [id number] [place] [address] Glucose [Mass/Vol] 144 mg/dL High 74-99 [facility] Comment on above: Order Comment: Antonellasyl campos Type: BLOOD SPECIMENOrdering Facility: [facility] Address: [address] [place] [id number] Result Comment: The [place] Diabetes Association (ADA) provides guidance for cutoff [...] Standards of Medical Care in Diabetes 2016, [place] [employer] Association. Diabetes Care. 2016.39(Suppl 1). Performed By: #### 2 4323-8 ####[facility] LABCLIA [id number] [place] [address] Potassium [Moles/Vol] 4.2 mmol/L Normal 3.7-5.1 [facility] Comment on above: Order Comment: Speci men Type: BLOOD SPECIMENOrdering Facility: [facility] Address: [address] [place] [address] Performed By: #### 2 4323-8 ####[facility] LABCLIA [id number] [place] [address] Protein [Mass/Vol] 6.8 g/dL Normal 6.3-8.0 [facility] Comment on above: Order Comment: Speci men Type: BLOOD SPECIMENOrdering Facility: [facility] Address: [address] [place] [address] Performed By: #### 2 4323-8 ####[facility] LABIA [id number] [place] [address] Sodium [Moles/Vol] 135 mmol/L Low 136-144 [facility] Comment on above: Order Comment: Speci men Type: BLOOD SPECIMENOrdering Facility: [facility] Address: [address] [place] [address] Performed By: #### 2 4323-8 ####[facility] LABCLIA [id number] [place] [address] Urea nitrogen [Mass/Vol] 27 mg/dL High 9-24 [facility] Comment on above: Order Comment: Speci men Type: BLOOD SPECIMENOrdering Facility: [facility] Address: [address] [place] [address] Performed By: #### 2 4323-8 ####[facility] LABIA [id number] [place] [address] BRIEF OP NOTon 02-02-2025 BRIEF OP NOT Normal [facility] HISTORY PHYSICALon HISTORY PHYSICAL Normal [facility] IR TRANSJUG LIVER BX W/PRESS on 02-02-2025 IR TRANSJUG LIVER BX W/PRESS Normal [facility] NURSING PROGon 02-02-2025 NURSING PROG Normal [facility] PT EDon 02-02-2025 PT ED Normal [facility] Pathology biopsy report Abhijit (Tiss)on 02-02-2025 AP DISCLAIMER Normal [facility] Comment on above: Order Comment: Speci men Type: TISSUE SPECIMENOrdering Facility: [facility] Address: [address] [place] [address] Result Comment: Haley dominguez Developed Test (LDT) Disclaimer:Performance characteristics of immunohistochemical, immunofluorescent, and chromogenic in-situ hybridization tests have been determined by the performing laboratory within [facility]'s [facility] Pathology and Laboratory Medicine Department ([facility], [facility], [facility], [facility], [facility], [facility], or [facility]) in a manner consistent with [...] stain appropriately. Performed By: #### 6 6121-5 ####[facility] LABCLIA [id number] [address] STATES OF [facility] LABORATORYCLIA [id number] [address] STATES OF [place] CASE REPORT Normal [facility] Comment on above: Order Comment: Speci men Type: TISSUE SPECIMENOrdering Facility: [facility] Address: [address] [place] [address] Result Comment: Surg ica Pathology Report Case: [id number] Provider: Isaiah Murry MD Collected: 02/02/2025 10:11 AMOrdering Location: [place] [address] Received: 02/02/2025 03:49 PMPathologist: Huber, Lucy, MDSpecimen: Liver, Biopsy Performed By: #### 6 6121-5 ####[facility] LABCLIA [id number] [address] LABORATORYCLIA [id number] [address] CLINICAL HISTORY elevated ALP Normal [facility] Comment on above: Order Comment: Speci men Type: TISSUE SPECIMENOrdering Facility: [facility] Address: [address] [place] [address] Performed By: #### 6 6121-5 ####[facility] LABCLIA [id number] [address] LABORATORYCLIA [id number] [address] DIAGNOSIS COMMENT [facility] Comment on above: Order Comment: Speci men Type: TISSUE SPECIMENOrdering Facility: [facility] Address: [address] [place] [address] Result Comment: The histologic examination shows 2 cores of liver parenchyma exhibiting adequate number of portal tracts for histologic evaluation. Portal tracts exhibit minimal mixed inflammation composed of predominantly lymphocytes admixed with rare plasma cells and eosinophils. [place] bile ducts are identified along with bile [...] hepatocytes (score 0 of 4+). CK7 highlights chipewwa bile ducts as well as biliary metaplasia. [...] diagnostic interpretation. Performed By: #### 6 6121-5 ####[facility] LABCLIA [id number] [address] LABORATORYCLIA [id number] [address] FINAL DIAGNOSIS Normal [facility] Comment on above: Order Comment: Speci men Type: TISSUE SPECIMENOrdering Facility: [facility] Address: [address] [place] [address] Result Comment: sallie Bowles, biopsy:- Hepatic parenchyma with zone 3 patchy sinusoidal dilatation, patchy dilated/angulated portal vein branches, and pericellular fibrosis.- See comment. at 1452 EDT Performed By: #### 6 6121-5 ####[facility] LABCLIA [id number] [address] LABORATORYCLIA [id number] [address] FINAL PERFORMING LAB Normal [facility] Comment on above: Order Comment: Speci men Type: TISSUE SPECIMENOrdering Facility: [facility] Address: [address] [place] [address] Result Comment: Diag nostic interpretation performed at: [facility], [address] [place], [place] [address] CLIA# [id number] Director: Ramos Strickland MD Performed By: #### 6 6121-5 ####[facility] LABCLIA [id number] [place] [id number] [facility] LABORATORYCLIA [id number] [place], [place] [address] [place] [address] OF [facility] GROSS DESCRIPTION Normal [facility] Comment on above: Order Comment: Speci men Type: TISSUE SPECIMENOrdering Facility: [facility] Address: [address] [place] [address] Result Comment: A. Becky caleber, BiopsyReceived in formalin are two segments of cylindrical tissue aggregating to 1.5 x 0.2 x 0.1 cm, brown and of a soft and friable consistency. Totally submitted in one cassette.[facility] February 02, 2025 8:03 PMGross examination performed at [facility], [address] [place] [address] Performed By: #### 6 6121-5 ####[facility] LABCLIA [id number] [address]FAIRR[facility] LABORATORYCLIA [id number] [address] OF [facility] NURSING PROGon 01-26-2025 NURSING PROG Normal [facility] Basic metabolic 2000 panelOr dered By: Sudha Granger on 01-25-2025 Anion gap [Moles/Vol] 13 mmol/L 8 - 15 mmol/L [facility] Calcium [Mass/Vol] 9.8 mg/dL 8.5 - 10. 2 mg/dL [facility] Chloride [Moles/Vol] 97 mmol/L Low 98 - 10 7 mmol/L [facility] CO2 [Moles/Vol] 25 mmol/L 22 - 30 mmol/L [facility] Creatinine [Mass/Vol] 1.55 mg/dL High 0.73 - 1.22 mg/dL [facility] GFR/1.73 sq M.predicted among non-blacks MDRD (S/P/Bld) [Vol rate/Area] 47 mL/min/{1.73_m2} Low - PINF [facility] Comment on above: Estimated Glomerular [...] 141 mg/dL High 74 - 99 mg/dL [facility] Comment on above: The [place] Diabete s Association (ADA) provides guidance for [...] Standards of Medical Care in Diabetes 2016, [place] [employer] Association. Diabetes Care. 2016.39(Suppl 1). Interpretation and review of laboratory results Abnormal [facility] Potassium [Moles/Vol] 3.7 mmol/L 3.7 - 5.1 mmol/L [facility] Sodium [Moles/Vol] 135 mmol/L Low 136 - 144 mmol/L [facility] Urea nitrogen [Mass/Vol] 56 mg/dL High 9 - 24 mg/dL [facility] Basic metabolic 2000 panelon 01-25-2025 Anion gap [Moles/Vol] 13 mmol/L Normal 8-15 [facility] Comment on above: Order Comment: Speci men Type: BLOOD SPECIMENOrdering Facility: [facility] Address: [address] [place] [address] Performed By: #### 1 9123-9, 55968-7 ####[facility] LABCLIA [id number] [place] [address] Calcium [Mass/Vol] 9.8 mg/dL Normal 8.5-10.2 [facility] Comment on above: Order Comment: Speci men Type: BLOOD SPECIMENOrdering Facility: [facility] Address: [address] [place] [address] Performed By: #### 1 9123-9, 02865-4 ####[facility] LABCLIA [id number] [place] [address] Chloride [Moles/Vol] 97 mmol/L Low 98-107 [facility] Comment on above: Order Comment: Speci men Type: BLOOD SPECIMENOrdering Facility: [facility] Address: [address] [place], [place] [address] Performed By: #### 1 9123-9, 96503-0 ####[facility] LABCLIA [id number] [place] [address] CO2 [Moles/Vol] 25 mmol/L Normal 22-30 [facility] Comment on above: Order Comment: Speci men Type: BLOOD SPECIMENOrdering Facility: [facility] Address: [address] [place] [address] Performed By: #### 1 91239, 87548-8 ####[facility] LABCLIA [id number] [place] [address] Creatinine [Mass/Vol] 1.55 mg/dL High 0.73-1.22 [facility] Comment on above: Order Comment: Speci men Type: BLOOD SPECIMENOrdering Facility: [facility] Address: [address] [place] [address] Performed By: #### 1 9123-9, 49317-0 ####[facility] LABIA [id number] [place] [address] eGFRcr SerPlBld CKD-EPI 2020 47 mL/min/1.73m??? Low >=60 [facility] Comment on above: Order Comment: Speci men Type: BLOOD SPECIMENOrdering Facility: [facility] Address: [address] [place], [place] [address] Result Comment: Kristel mated Glomerular Filtration Rate [...] actual GFR. Performed By: #### 1 9123-9, 58304-1 ####[facility] LABCLIA [id number] [place] [address] Glucose [Mass/Vol] 141 mg/dL High 74-99 [facility] Comment on above: Order Comment: Speci men Type: BLOOD SPECIMENOrdering Facility: [facility] Address: [address] [place], [place] [address] Result Comment: The [place] Diabetes Association (ADA) provides guidance for cutoff [...] Standards of Medical Care in Diabetes 2016, [place] Diabetes Association. Diabetes Care. 2016.39(Suppl 1). Performed By: #### 1 9123-9, 02479-4 ####[facility] LABCLIA [id number] [place] [address] Potassium [Moles/Vol] 3.7 mmol/L Normal 3.7-5.1 [facility] Comment on above: Order Comment: Speci men Type: BLOOD SPECIMENOrdering Facility: [facility] Address: [address] [place], [place] [address] Performed By: #### 1 9123-9, 77941-7 ####[facility] LABCLIA [id number] [place] [address] Sodium [Moles/Vol] 135 mmol/L Low 136-144 [facility] Comment on above: Order Comment: Speci men Type: BLOOD SPECIMENOrdering Facility: [facility] Address: [address] [place] [address] Performed By: #### 1 9123-9, 63641-4 ####[facility] LABCLIA [id number] [place] [address] Urea nitrogen [Mass/Vol] 56 mg/dL High 9-24 [facility] Comment on above: Order Comment: Speci men Type: BLOOD SPECIMENOrdering Facility: [facility] Address: [address] [place] [address] Performed By: #### 1 9123-9, 54456-5 ####[facility] LABCLIA [id number] [place] [address] CBC panel Auto (Bld)on 01-25 Erythrocyte distribution width (RBC) [Ratio] 14.7 % 11.5 - 15.0 % [facility] Hematocrit (Bld) [Volume fraction] 37.9 % Low 39.0 - 51.0 % [facility] Hemoglobin (Bld) [Mass/Vol] 12.2 g/dL Low 13.0 - 17.0 g/dL [facility] Interpretation and review of laboratory results Abnormal [facility] MCH (RBC) [Entitic mass] 32.5 pg 26.0 - 34.0 pg [facility] MCHC (RBC) [Mass/Vol] 32.2 g/dL 30.5 - 36.0 g/dL [facility] MCV (RBC) [Entitic vol] 101.1 fL High 80.0 - 100.0 fL [facility] Nucleated RBC (Bld) [#/Vol] NINF [facility] Platelet mean volume (Bld) [Entitic vol] 9.8 fL 9.0 - 12.7 fL [facility] Platelets (Bld) [#/Vol] 197 10*3/uL [facility] RBC (Bld) [#/Vol] 3.75 10*6/uL Low 4.20 - 6.0 0 m/uL [facility] WBC (Bld) [#/Vol] 8.05 10*3/uL [facility] Erythrocyte distribution width (RBC) [Ratio] 14.7 % Normal 11.5-15.0 [facility] Comment on above: Order Comment: Speci men Type: BLOOD SPECIMENOrdering Facility: [facility] Address: [address] [place] [address] Performed By: #### 5 8410-2 ####[facility] LABCLIA [id number] [place] [address] Hematocrit (Bld) [Volume fraction] 37.9 % Low 39.0-51.0 [facility] Comment on above: Order Comment: Speci men Type: BLOOD SPECIMENOrdering Facility: [facility] Address: [address] [place] [address] Performed By: #### 5 8410-2 ####[facility] LABCLIA [id number] [place] [address] Hemoglobin (Bld) [Mass/Vol] 12.2 g/dL Low 13.0-17.0 [facility] Comment on above: Order Comment: Speci men Type: BLOOD SPECIMENOrdering Facility: [facility] Address: [address] [place] [address] Performed By: #### 5 8410-2 ####[facility] LABIA [id number] [place] [address] MCH (RBC) [Entitic mass] 32.5 pg Normal 26.0-34.0 [facility] Comment on above: Order Comment: Speci men Type: BLOOD SPECIMENOrdering Facility: [facility] Address: [address] [place] [address] Performed By: #### 5 8410-2 ####[facility] LABCLIA [id number] [place] [address] MCHC (RBC) [Mass/Vol] 32.2 g/dL Normal 30.5-36.0 [facility] [facility] Comment on above: Order Comment: Speci men Type: BLOOD SPECIMENOrdering Facility: [facility] Address: [address] [place] [address] Performed By: #### 5 8410-2 ####[facility] LABIA [id number] [place] [address] MCV (RBC) [Entitic vol] 101.1 fL High 80.0-100.0 [facility] Comment on above: Order Comment: Speci men Type: BLOOD SPECIMENOrdering Facility: [facility] Address: [address] [place] [address] Performed By: #### 5 8410-2 ####[facility] LABCLIA [id number] [place] [address] Nucleated RBC (Bld) [#/Vol] 10*3/uL Normal <0.01 [facility] Comment on above: Order Comment: Speci men Type: BLOOD SPECIMENOrdering Facility: [facility] Address: [address] [place] [address] Performed By: #### 5 8410-2 ####[facility] LABCLIA [id number] [place] [address] Platelet mean volume (Bld) [Entitic vol] 9.8 fL Normal 9.0-12.7 [facility] Comment on above: Order Comment: Speci men Type: BLOOD SPECIMENOrdering Facility: [facility] Address: [address] [place] [address] Performed By: #### 5 8410-2 ####[facility] LABCLIA [id number] [place] [address] Platelets (Bld) [#/Vol] 197 10*3/uL Normal 150-400 [facility] Comment on above: Order Comment: Speci men Type: BLOOD SPECIMENOrdering Facility: [facility] Address: [address] [place] [address] Performed By: #### 5 8410-2 ####[facility] LABCLIA [id number] [place] [address] RBC (Bld) [#/Vol] 3.75 10*6/uL Low 4.20-6.[address] [facility] Comment on above: Order Comment: Speci men Type: BLOOD SPECIMENOrdering Facility: [facility] Address: [address] [place] [address] Performed By: #### 5 8410-2 ####[facility] LABCLIA [id number] [place] [address] WBC (Bld) [#/Vol] 8.05 10*3/uL Normal 3.70-11.[address] [facility] Comment on above: Order Comment: Speci men Type: BLOOD SPECIMENOrdering Facility: [facility] Address: [address] [place] [address] Performed By: #### 5 8410-2 ####[facility] LABCLIA [id number] [place] [address] MAGNESIUMon 01-25-2025 Magnesium [Mass/Vol] 2.2 mg/dL 1.7 - 2 .3 mg/dL [facility] Magnesium SerPl-mCncon 01-25 Magnesium [Mass/Vol] 2.2 mg/dL Normal 1.7-2.3 [facility] Comment on above: Order Comment: Speci men Type: BLOOD SPECIMENOrdering Facility: [facility] Address: [address] [place] [address] Performed By: #### 1 9123-9, 45945-6 ####[facility] LABCLIA [id number] [place] [address] Magnesium [Mass/Vol]on 01-25 Interpretation and review of laboratory results Normal [facility] CNOVon 01-11-2025 CNOV Normal [facility] A1AT SerPl-mCncon 01-08-2025 Alpha 1 antitrypsin [Mass/Vol] 167 mg/dL Normal 90-200 [facility] Comment on above: Order Comment: Speci men Type: BLOOD SPECIMENOrdering Facility: [facility] Address: [address] [place] [address] Performed By: #### 5 0190-8, 1825-9, 2324-2, 2276-4 ####[facility] LABCLIA [id number] [place] [address] [place] GREY BY IFA WITH REFLEXon Nuclear Ab Ql (S) Negative Normal Negative [facility] Comment on above: Order Comment: Speci men Type: BLOOD SPECIMENOrdering Facility: [facility] Address: [address] [place] [address] Result Comment: Anti -nuclear antibody test is used as an aid in diagnosis of systemic autoimmune diseases. Where positive and clinically warranted, follow-up using disease-specific testing is recommended. Low positive titers are not uncommon with advanced age, certain chronic infections, and malignancies among others.Test methodology: Indirect fluorescence immunoassay (IFA) using HEp-2 cells. Performed By: #### A NAIFR ####[facility] LABCLIA [id number] OF [facility] CBC panel Auto (Bld)on 01-08 Erythrocyte distribution width (RBC) [Ratio] 15.8 % High 11.5-15.0 [facility] Comment on above: Order Comment: Alexandru campos Type: BLOOD SPECIMENOrdering Facility: [facility] Address: [address] [place] [address] Performed By: #### 5 8410-2 ####[facility] LABCLIA [id number] [place] [address] Hematocrit (Bld) [Volume fraction] 37.0 % Low 39.0-51.0 [facility] Comment on above: Order Comment: Antonellai beth Type: BLOOD SPECIMENOrdering Facility: [facility] Address: [address] [place] [address] Performed By: #### 5 8410-2 ####[facility] LABCLIA [id number] [place] [address] Hemoglobin (Bld) [Mass/Vol] 11.7 g/dL Low 13.0-17.0 [facility] Comment on above: Order Comment: Antonellai men Type: BLOOD SPECIMENOrdering Facility: [facility] Address: [address] [place] [address] Performed By: #### 5 8410-2 ####[facility] LABCLIA [id number] [place] [address] MCH (RBC) [Entitic mass] 32.7 pg Normal 26.0-34.0 [facility] Comment on above: Order Comment: Speci men Type: BLOOD SPECIMENOrdering Facility: [facility] Address: [address] [place] [address] Performed By: #### 5 8410-2 ####[facility] LABCLIA [id number] [place] [address] MCHC (RBC) [Mass/Vol] 31.6 g/dL Normal 30.5-36.0 [facility] Comment on above: Order Comment: Speci men Type: BLOOD SPECIMENOrdering Facility: [facility] Address: [address] [place] [address] Performed By: #### 5 8410-2 ####[facility] LABCLIA [id number] [place] [address] MCV (RBC) [Entitic vol] 103.4 fL High 80.0-100.0 [facility] Comment on above: Order Comment: Speci men Type: BLOOD SPECIMENOrdering Facility: [facility] Address: [address] [place] [address] Performed By: #### 5 8410-2 ####[facility] LABCLIA [id number] [place] [address] Nucleated RBC (Bld) [#/Vol] 10*3/uL Normal <0.01 [facility] Comment on above: Order Comment: Speci men Type: BLOOD SPECIMENOrdering Facility: [facility] Address: [address] [place] [address] Performed By: #### 5 8410-2 ####[facility] LABIA [id number] [place] [address] Platelet mean volume (Bld) [Entitic vol] 9.7 fL Normal 9.0-12.7 [facility] Comment on above: Order Comment: Speci men Type: BLOOD SPECIMENOrdering Facility: [facility] Address: [address] [place] [address] Performed By: #### 5 8410-2 ####[facility] LABCLIA [id number] [place] [address] Platelets (Bld) [#/Vol] 228 10*3/uL Normal 150-400 [facility] Comment on above: Order Comment: Speci men Type: BLOOD SPECIMENOrdering Facility: [facility] Address: [address] [place] [address] Performed By: #### 5 8410-2 ####[facility] LABCLIA [id number] [place] [address] RBC (Bld) [#/Vol] 3.58 10*6/uL Low 4.20-6.[address] [facility] Comment on above: Order Comment: Speci men Type: BLOOD SPECIMENOrdering Facility: [facility] Address: [address] [place] [address] Performed By: #### 5 8410-2 ####[facility] LABCLIA [id number] [place] [address] WBC (Bld) [#/Vol] 9.63 10*3/uL Normal 3.70-11.[address] [facility] Comment on above: Order Comment: Speci men Type: BLOOD SPECIMENOrdering Facility: [facility] Address: [address] [place] [address] Performed By: #### 5 8410-2 ####[facility] LABCLIA [id number] [place] [address] CMV IgM Qnon 01-08-2025 CMV IGM, QUAL Positive Abnormal Negative [facility] Comment on above: Order Comment: Speci men Type: BLOOD SPECIMENOrdering Facility: [facility] Address: [address] [place] [address] Result Comment: The result suggests recent infection with Cytomegalovirus (CMV) or recent CMV reactivation. CMV IgM levels may remain elevated for extended periods after a primary infection. Clinical correlation is required. Performed By: #### 7 853-5 ####[facility] LABCLIA [id number] [facility]ie[facility]ITAL[facility] [place] [id number] [place] Comprehensive metabolic 2000 panelon 01-08-2025 Albumin [Mass/Vol] 4.1 g/dL Normal 3.9-4.9 [facility] Comment on above: Order Comment: Speci men Type: BLOOD SPECIMENOrdering Facility: [facility] Address: [address] [place] [address] Performed By: #### 2 4323-8 ####[facility] LABCLIA [id number] [place] [address] ALP [Catalytic activity/Vol] 92 U/L Normal 38-113 [facility] Comment on above: Order Comment: Speci men Type: BLOOD SPECIMENOrdering Facility: [facility] Address: [address] [place] [address] Performed By: #### 2 4323-8 ####[facility] LABCLIA [id number] [place] [address] ALT [Catalytic activity/Vol] 18 U/L Normal 10-54 [facility] Comment on above: Order Comment: Speci men Type: BLOOD SPECIMENOrdering Facility: [facility] Address: [address] [place] [address] Performed By: #### 2 4323-8 ####[facility] LABCLIA [id number] [place] [address] Anion gap [Moles/Vol] 8 mmol/L Normal 8-15 [facility] Comment on above: Order Comment: Speci men Type: BLOOD SPECIMENOrdering Facility: [facility] Address: [address] [place] [address] Performed By: #### 2 4323-8 ####[facility] LABCLIA [id number] [place] [address] AST [Catalytic activity/Vol] 5 U/L Low 14-40 [facility] Comment on above: Order Comment: Speci men Type: BLOOD SPECIMENOrdering Facility: [facility] Address: [address] [place] [address] Performed By: #### 2 4323-8 ####[facility] LABCLIA [id number] [place] [address] Bilirubin [Mass/Vol] 0.6 mg/dL Normal 0.2-1.3 [facility] Comment on above: Order Comment: Speci men Type: BLOOD SPECIMENOrdering Facility: [facility] Address: [address] [place] [address] Performed By: #### 2 4323-8 ####[facility] LABCLIA [id number] [place] [address] Calcium [Mass/Vol] 9.2 mg/dL Normal 8.5-10.2 [facility] Comment on above: Order Comment: Speci men Type: BLOOD SPECIMENOrdering Facility: [facility] Address: [address] [place] [address] Performed By: #### 2 4323-8 ####[facility] LABCLIA [id number] [place] [address] Chloride [Moles/Vol] 101 mmol/L Normal 98-107 [facility] Comment on above: Order Comment: Speci men Type: BLOOD SPECIMENOrdering Facility: [facility] Address: [address] [place] [address] Performed By: #### 2 4323-8 ####[facility] LABCLIA [id number] [place] [address] CO2 [Moles/Vol] 29 mmol/L Normal 22-30 [facility] Comment on above: Order Comment: Speci men Type: BLOOD SPECIMENOrdering Facility: [facility] Address: [address] [place] [address] Performed By: #### 2 4323-8 ####[facility] LABCLIA [id number] [place] [address] Creatinine [Mass/Vol] 1.46 mg/dL High 0.73-1.22 [facility] Comment on above: Order Comment: Alexandru beth Type: BLOOD SPECIMENOrdering Facility: [facility] Address: [address] [place] [address] Performed By: #### 2 4323-8 ####[facility] LABCLIA [id number] [place] [address] eGFRcr SerPlBld CKD-EPI 2020 50 mL/min/1.73m??? Low >=60 [facility] Comment on above: Order Comment: Antonellasyl campos Type: BLOOD SPECIMENOrdering Facility: [facility] Address: [address] [place] [id number] Result Comment: Kristel mated Glomerular Filtration Rate [...] actual GFR. Performed By: #### 2 4323-8 ####[facility] LABCLIA [id number] [place] [address] Glucose [Mass/Vol] 116 mg/dL High 74-99 [facility] Comment on above: Order Comment: Antonellasyl campos Type: BLOOD SPECIMENOrdering Facility: [facility] Address: [address] [place], [place] [address] Result Comment: The [place] [employer] (ADA) provides guidance for cutoff [...] Standards of Medical Care in Diabetes 2016, [place] [employer]. Diabetes Care. 2016.39(Suppl 1). Performed By: #### 2 4323-8 ####[facility] LABCLIA [id number] [place] [address] Potassium [Moles/Vol] 3.9 mmol/L Normal 3.7-5.1 [facility] Comment on above: Order Comment: Speci men Type: BLOOD SPECIMENOrdering Facility: [facility] Address: [address] [place] [address] Performed By: #### 2 4323-8 ####[facility] LABCLIA [id number] [place] [address] Protein [Mass/Vol] 7.4 g/dL Normal 6.3-8.0 [facility] Comment on above: Order Comment: Speci men Type: BLOOD SPECIMENOrdering Facility: [facility] Address: [address] [place] [address] Performed By: #### 2 4323-8 ####[facility] LABCLIA [id number] [place] [address] Sodium [Moles/Vol] 138 mmol/L Normal 136-144 [facility] Comment on above: Order Comment: Speci men Type: BLOOD SPECIMENOrdering Facility: [facility] Address: [address] [place] [address] Performed By: #### 2 4323-8 ####[facility] LABCLIA [id number] [place] [address] Urea nitrogen [Mass/Vol] 56 mg/dL High 9-24 [facility] Comment on above: Order Comment: Speci men Type: BLOOD SPECIMENOrdering Facility: [facility] Address: [address] [place] [address] Performed By: #### 2 4323-8 ####[facility] LABIA [id number] [place] [address] [facility] 20[facility] Ferritin [Mass/Vol] 71.9 ng/mL Normal 30.3-565.[address] [facility] Comment on above: Order Comment: Speci men Type: BLOOD SPECIMENOrdering Facility: [facility] Address: [address] [place] [address] Performed By: #### 5 0190-8, 1825-9, 2324-2, 2276-4 ####[facility] LABIA [id number] [place] [address] [place] GGT SerPl-cCncon 01-08-2025 Gamma glutamyl transferase [Catalytic activity/Vol] 123 U/L High 10-70 [facility] Comment on above: Order Comment: Alexandru campos Type: BLOOD SPECIMENOrdering Facility: [facility] Address: [address] [place] [address] Performed By: #### 5 0190-8, 1825-9, 2324-2, 6-4 ####[facility] LABIA [id number] [place] [address] [place] HBV core Ab Ser Qlon 025 HBV core Ab Ql (S) Negative Normal Negative [facility] Comment on above: Order Comment: Antonellai beth Type: BLOOD SPECIMENOrdering Facility: [facility] Address: [address] [place] [address] Result Comment: No e vidence of current or past infection with Hepatitis B virus. Should recent infection be suspected, repeat testing may be considered 3-4 weeks after this draw. Performed By: #### 1 6933-4, 17976-9, 5195-3 ####[facility] LABIA [id number] [place] [address] [place] HBV surface Ab Ql (S)on 12-16 HBV surface Ab Qn (S) <8.00 Normal [facility] Comment on above: Order Comment: Speci beth Type: BLOOD SPECIMENOrdering Facility: [facility] Address: [address], [place] [address] Result Comment: <8 m IU/mL: No serological evidence of immunity to Hepatitis B Virus.>/= 8 to <12 mIU/mL: No serological evidence of immunity to Hepatitis B Virus.>/= 12 mIU/mL: Consistent with serological evidence of immunity to Hepatitis B Virus. Performed By: #### 1 6933-4, 29810-6, 5194-3 ####[facility] LABCLIA [id number] [place] [address] [place] HBV surface Ab Ser Qlon 12-16 HBV surface Ab Ql (S) Negative Normal [facility] Comment on above: Order Comment: Speci men Type: BLOOD SPECIMENOrdering Facility: [facility] Address: [address] [place] [address] Result Comment: No s erological evidence of immunity to Hepatitis B Virus. Performed By: #### 1 6933-4, 98843-1, 5194-3 ####[facility] LABCLIA [id number] [address] [place] HBV surface Ag Ser Qlon 12-16 HBV surface Ag Ql (S) Negative Normal Negative [facility] Comment on above: Order Comment: Antonellai men Type: BLOOD SPECIMENOrdering Facility: [facility] Address: [address] [place] [address] Performed By: #### 1 6933-4, 12357-5, 5194-3 ####[facility] LABCLIA [id number] [address] [place] HCV Ab Ser Qlon 01-08-2025 HCV Ab Ql (S) Negative Normal Negative [facility] Comment on above: Order Comment: Speci men Type: BLOOD SPECIMENOrdering Facility: [facility] Address: [address] [place] [address] Result Comment: The result suggests no evidence of infection with Hepatitis C virus. Should recent infection be suspected, repeat testing may be considered 4-6 weeks after this draw. Performed By: #### 1 6128-1 ####[facility] LABCLIA [id number] [place] [id number] [place] Iron and Iron binding capaci ty panelon 01-08-2025 Iron [Mass/Vol] 63 ug/dL Normal 41-186 [facility] Comment on above: Order Comment: Speci men Type: BLOOD SPECIMENOrdering Facility: [facility] Address: [address] [place] [address] Performed By: #### 5 0190-8, 1825-9, 4-2, 6-4 ####[facility] LABIA [id number] [place] [address] [place] Iron binding capacity [Mass/Vol] 379 ug/dL Normal 232-386 [facility] Comment on above: Order Comment: Speci men Type: BLOOD SPECIMENOrdering Facility: [facility] Address: [address] [place] [address] Performed By: #### 5 0190-8, 182-9, 4-2, 6-4 ####[facility] [id number] [place] [address] [place] Iron/TIBC [Molar ratio] 16.6 % Normal 15.0-57.0 [facility] Comment on above: Order Comment: Speci men Type: BLOOD SPECIMENOrdering Facility: [facility] Address: [address] [place] [address] Performed By: #### 5 0190-8, 1825-9, 4-2, 6-4 ####[facility] LABIA [id number] [place] [id number] [place] LIVER-KIDNEY MICROSOME ANTIB OLGA, IGGon 01-08-2025 LIVER-KIDNEY MICROSOMAL ABS <1:20 Normal <1:20 [facility] Comment on above: Order Comment: Speci men Type: BLOOD SPECIMENOrdering Facility: [facility] Address: [address] [place] [address] Result Comment: INTE RPRETIVE INFORMATION: Iftqh-Whybkj-Zrmrxfixl Abs, IgGLiver-Kidney Microsome IgG antibody (anti-LKM), as detected byindirect immunofluorescent antibody (IFA) techniques, may beobserved in patients with autoimmune hepatitis type 2 (AIH-2),AIH-2 associated with afkquhkxrgxjnhxzsaipkovqywga-gbmvawemdik-puerevqcmj dystrophy (APECED),viral hepatitis C or D, and some forms of drug-induced hepatitis.This IFA does not differentiate among the four types of LKMantibodies (LKM-1, LKM-2, LKM-3, and a fourth type that sqedfdieuhJTP8K8 and CY antigens). Of these, anti-LKM-1 (cqdnzgodxvM533DZE6) IgG antibodies are considered specific for AIH-2.This test was developed and its performance characteristicsdetermined by [facility]. It has not been cleared orapproved by the [place] Food and Drug Administration. This test wasperformed in a CLIA certified laboratory and is intended forclinical purposes.Performed By: [facility] [place] [address]Ypnpafdoys Director: Anne-Marie Correa MD, PhDCLIA Number: [id number] Performed By: #### L KM ####[facility] [id number] [place] [address] Mitochondria Ab IF Ql (S)on 01-08-2025 Mitochondria M2 Ab IA Qn (S) 4.9 Units Normal <=20.0 [facility] Comment on above: Order Comment: Alexandru campos Type: BLOOD SPECIMENOrdering Facility: [facility] Address: [address] [place] [address] Performed By: #### 1 4252-1, 39716-1 ####[facility] LABCLIA [id number] [address] [place] Mitochondria M2 Ab Ql (S) Negative Normal Negative [facility] Comment on above: Order Comment: Alexandru campos Type: BLOOD SPECIMENOrdering Facility: [facility] Address: [address] [place] [address] Result Comment: Anti -mitochondrial antibody test is used as an aid in diagnosis of primary biliary cholangitis. Clinical correlation is required. Performed By: #### 1 4252-1, 16504-5 ####[facility] LABIA [id number] [place] [address] [place] PT panel Coag (PPP)on 2024 INR Coag (PPP) [Relative time] 1.1 {INR} Normal 0.9-1.3 [facility] Comment on above: Order Comment: Alexandru campos Type: BLOOD SPECIMENOrdering Facility: [facility] Address: [address] [place] [address] Result Comment: Elsa min K Antagonist (VKA) Therapeutic Range: INR 2 to 3 (Target INR of 2.5)Note: For patients treated with VKA drugs, such as warfarin, the [place] [employer] 2012 Guideline recommends [...] al. Chest 2012, 141:7S-47SSimone RA, et al. [facility] 2017, 70: 252-289 Performed By: #### 3 4528-0 ####[facility] LABIA [id number] [place] [id number] [place] PT Coag (PPP) [Time] 12.2 s Normal 9.7-13.0 [facility] Comment on above: Order Comment: Alexandru campos Type: BLOOD SPECIMENOrdering Facility: [facility] Address: [address] [place] [address] Performed By: #### 3 4528-0 ####[facility] LABIA [id number] [place] [address] [place] Smooth muscle Ab Ql (S)on ACTIN SMOOTH MUSCLE IGG QUALITATIVE Negative Normal Negative [facility] Comment on above: Order Comment: Speci men Type: BLOOD SPECIMENOrdering Facility: [facility] Address: [address] [place] [address] Performed By: #### 1 4252-1, 20206-5 ####[facility] LABCLIA [id number] [place] [address] [place] ACTIN SMOOTH MUSCLE IGG QUANTITATIVE 11 Units Normal <20 [facility] Comment on above: Order Comment: Speci men Type: BLOOD SPECIMENOrdering Facility: [facility] Address: [address] [place] [address] Performed By: #### 1 4252-1, 34020-0 ####[facility] LABCLIA [id number] [place] [address] [place] XR CHEST 2V FRONTAL/LATon XR CHEST 2V FRONTAL/LAT Normal [facility] Basic metabolic 2000 panelon 12-22-2024 Anion gap [Moles/Vol] 12 mmol/L Normal 8-15 [facility] Comment on above: Order Comment: Speci men Type: BLOOD SPECIMENOrdering Facility: [facility] Address: [address] [place] [address] Performed By: #### 2 4321-2 ####[facility] LABCLIA [id number] [place] [address] [place] Calcium [Mass/Vol] 9.6 mg/dL Normal 8.5-10.2 [facility] Comment on above: Order Comment: Speci men Type: BLOOD SPECIMENOrdering Facility: [facility] Address: [address] [place] [address] Performed By: #### 2 4321-2 ####[facility] LABCLIA [id number] [place] [address] [place] Chloride [Moles/Vol] 98 mmol/L Normal 98-107 [facility] Comment on above: Order Comment: Speci men Type: BLOOD SPECIMENOrdering Facility: [facility] Address: [address] [place] [address] Performed By: #### 2 4321-2 ####[facility] LABCLIA [id number] [place] [address] [place] CO2 [Moles/Vol] 26 mmol/L Normal 22-30 [facility] Comment on above: Order Comment: Speci men Type: BLOOD SPECIMENOrdering Facility: [facility] Address: [address] [place] [address] Performed By: #### 2 4321-2 ####[facility] LABIA [id number] [place] [address] [place] Creatinine [Mass/Vol] 1.60 mg/dL High 0.73-1.22 [facility] Comment on above: Order Comment: Speci men Type: BLOOD SPECIMENOrdering Facility: [facility] Address: [address] [place] [address] Performed By: #### 2 4321-2 ####[facility] LABIA [id number] [place] [address] [place] Creatinine and Glomerular filtration rate.predicted panel (S/P/Bld) 45 mL/min/1.73m??? Low >=60 [facility] Comment on above: Order Comment: Speci men Type: BLOOD SPECIMENOrdering Facility: [facility] Address: [address] [place] [address] Result Comment: Kristel mated Glomerular Filtration Rate [...] actual GFR. Performed By: #### 2 4321-2 ####[facility] LABCLIA [id number] [place] [address] [place] Glucose [Mass/Vol] 119 mg/dL High 74-99 [facility] Comment on above: Order Comment: Speci men Type: BLOOD SPECIMENOrdering Facility: [facility] Address: [address] [place] [address] Result Comment: The [place] Diabetes Association (ADA) provides guidance for cutoff [...] Standards of Medical Care in Diabetes 2016, [place] [employer]. Diabetes Care. 2016.39(Suppl 1). Performed By: #### 2 4321-2 ####[facility] LABCLIA [id number] [place] [address] [place] Potassium [Moles/Vol] 4.3 mmol/L Normal 3.7-5.1 [facility] Comment on above: Order Comment: Speci men Type: BLOOD SPECIMENOrdering Facility: [facility] Address: [address] [place] [address] Performed By: #### 2 4321-2 ####[facility] LABCLIA [id number] [place] [id number] [place] Sodium [Moles/Vol] 136 mmol/L Normal 136-144 [facility] Comment on above: Order Comment: Speci men Type: BLOOD SPECIMENOrdering Facility: [facility] Address: [address] [place] [address] Performed By: #### 2 4321-2 ####[facility] LABCLIA [id number] [place] [address] [place] Urea nitrogen [Mass/Vol] 45 mg/dL High 9-24 [facility] Comment on above: Order Comment: Speci men Type: BLOOD SPECIMENOrdering Facility: [facility] Address: [address] [place] [address] Performed By: #### 2 4321-2 ####[facility] LABCLIA [id number] [place] [id number] [place] PVR LEG ROCIO VAS LABon 2024 PVR LEG ROCIO VAS LAB Normal [facility] US VENOUS INCOMPETENCY ROCIO V LABon 12-16-2024 US VENOUS INCOMPETENCY ROCIO VAS LAB Normal [facility] CNOVon 11-23-2024 CNOV Normal [facility] CNPNon 11-23-2024 CNPN Normal [facility] US ABD RIGHT UPPER QUADRANTo n 11-23-2024 [...] infiltrative diseases or in the post-prandial state. 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: ALONSO Transcribe Date/Time: Nov 26 2024 7:29A Dictated by : KRISTINA SALINAS MD This examination was interpreted and the report reviewed and electronically signed by: KRISTINA SALINAS MD on Nov 26 2024 7:35AM EST [id number] [facility] US ELASTOGRAPHY LIVERon 06-0 US ELASTOGRAPHY [...] infiltrative diseases or in the post-prandial state. 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: ALONSO Transcribe Date/Time: Nov 26 2024 7:29A Dictated by : KRISTINA SALINAS MD This examination was interpreted and the report reviewed and electronically signed by: KRISTINA SALINAS MD on Nov 26 2024 7:35AM EST [id number] Normal [facility] XR CHEST 2V FRONTAL/LATon XR CHEST 2V FRONTAL/LAT Normal [facility] XR Chest PA and Lateralon IMPRESSION: See result. 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: ALONSO Transcribe Date/Time: Nov 23 2024 1:39P Dictated by : CRISTOBAL ROACH MD This examination was interpreted and the report reviewed and electronically signed by: CRISTOBAL ROACH MD on Nov 23 2024 1:42PM [facility] DIVISION OF RADIOLOGY * * *Final Report* [...] DIVISION OF RADIOLOGY Provider, Cc Leonard perez Walker - 11/23/2024 * * *Final Report* * [...] left seventh rib. IMPRESSION IMPRESSION: See result. 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: ALONSO Transcribe Date/Time: Nov 23 2024 1:39P Dictated by : CRISTOBAL ROACH MD This examination was interpreted and the report reviewed and electronically signed by: CRISTOBAL ROACH MD on Nov 23 2024 1:42PM EST [facility] Radiology Study observation (narrative) [facility] XR Chest PA and LateralOrder ed By: Ccf Provider on 11-23-2024 [facility] CNOVon 11-20-2024 CNOV Normal [facility] CNOVon 11-19-2024 CNOV Normal [facility] OPERATIVE NOon 11-19-2024 OPERATIVE NO Normal [facility] US Chest limitedon [facility] Radiology Study observation (narrative) [facility] XR CHEST 1V FRONTAL PORTon 0 11-19-2024 XR CHEST 1V FRONTAL PORT Normal [facility] XR CHEST 2V FRONTAL/LATon XR CHEST 2V FRONTAL/LAT Normal [facility] XR Chest PA and Lateralon 06 -05-2025 IMPRESSION: See result 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: ALONSO Transcribe Date/Time: Nov 19 2024 3:58P Dictated by : KYLER NICHOLAS MD This examination was interpreted and the report reviewed and electronically signed by: KYLER NICHOLAS MD on Nov 19 2024 4:01PM [facility] DIVISION OF RADIOLOGY * * *Final Report* [...] the left rib/ribs. DIVISION OF RADIOLOGY Provider, [facility] - 11/19/2024 * * *Final Report* * [...] the left rib/ribs. IMPRESSION IMPRESSION: See result 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: PSCAc Transcribe Date/Time: Nov 19 2024 3:58P Dictated by : KYLER NICHOLAS MD This examination was interpreted and the report reviewed and electronically signed by: KYLER NICHOLAS MD on Nov 19 2024 4:01PM EST [facility] Radiology Study observation (narrative) [facility] XR Chest PA and LateralOrder ed By: Ccf Provider on 11-19-2024 [facility] CNPNon 11-17-2024 CNPN Normal [facility] COPPER BLOODon 11-17-2024 Copper [Mass/Vol] 159 ug/dL High 70-140 [facility] Comment on above: Order Comment: Speci beth Type: BLOOD SPECIMENOrdering Facility: [facility] Address: [address] [place] [address] Result Comment: This test was developed, and its performance characteristics determined by the [facility] Department of Pathology and Laboratory Medicine. It has not been cleared or approved by the FDA. The [facility] Department of Pathology and Laboratory Medicine is regulated under CLIA as qualified to perform high-complexity testing. This test is used for clinical purposes. It should not be regarded as investigational or for research. Performed By: #### C OPPER ####[facility] LABCLIA [id number] [place] [address] [place] Comprehensive metabolic 2000 panelon 11-17-2024 Albumin [Mass/Vol] 4.1 g/dL Normal 3.9-4.9 [facility] Comment on above: Order Comment: Alexandru campos Type: BLOOD SPECIMENOrdering Facility: [facility] Address: [address] [place] [address] Performed By: #### 2 4323, ####[facility] LABCLIA [id number] [facility] [id number] [address] [place] ALP [Catalytic activity/Vol] 112 U/L Normal 38-113 [facility] Comment on above: Order Comment: Speci men Type: BLOOD SPECIMENOrdering Facility: [facility] Address: [address] [place] [address] Performed By: #### 2 4323-01, ####[facility] LABCLIA [id number] [facility] [id number], [place] [address] [place] ALT [Catalytic activity/Vol] 34 U/L Normal 10-54 [facility] Comment on above: Order Comment: Speci men Type: BLOOD SPECIMENOrdering Facility: [facility] Address: [address] [place] [address] Performed By: #### 2 4323-01, ####[facility] LABCLIA [id number] [facility] [address] [place] [address] [place] Anion gap [Moles/Vol] 12 mmol/L Normal 8-15 [facility] Comment on above: Order Comment: Speci men Type: BLOOD SPECIMENOrdering Facility: [facility] Address: [address] [place], [place] [address] Performed By: #### 2 4323-01, ####[facility] LABCLIA [id number] [facility] [address] [place] [address] [place] AST [Catalytic activity/Vol] 47 U/L High 14-40 [facility] Comment on above: Order Comment: Speci men Type: BLOOD SPECIMENOrdering Facility: [facility] Address: [address] [place], [place] [address] Performed By: #### 2 432-8, ####[facility] LABCLIA [id number] [facility] [address] [place] [address] [place] Bilirubin [Mass/Vol] 0.8 mg/dL Normal 0.2-1.3 [facility] Comment on above: Order Comment: Speci men Type: BLOOD SPECIMENOrdering Facility: [facility] Address: [address] [place] [address] Performed By: #### 2 4323-8, ####[facility] LABCLIA [id number] [place] [address] [place] Calcium [Mass/Vol] 9.5 mg/dL Normal 8.5-10.2 [facility] Comment on above: Order Comment: Speci men Type: BLOOD SPECIMENOrdering Facility: [facility] Address: [address] [place] [address] Performed By: #### 2 432-8, ####[facility] LABCLIA [id number] [place] [address] [place] Chloride [Moles/Vol] 97 mmol/L Low 98-107 [facility] Comment on above: Order Comment: Speci men Type: BLOOD SPECIMENOrdering Facility: [facility] Address: [address] [place] [address] Performed By: #### 2 8, ####[facility] LABCLIA [id number] [place] [address] [place] CO2 [Moles/Vol] 30 mmol/L Normal 22-30 [facility] Comment on above: Order Comment: Speci men Type: BLOOD SPECIMENOrdering Facility: [facility] Address: [address] [place], [place] [address] Performed By: #### 2 4323-8, ####[facility] LABCLIA [id number] [place] [address] [place] Creatinine [Mass/Vol] 1.38 mg/dL High 0.73-1.22 [facility] Comment on above: Order Comment: Speci men Type: BLOOD SPECIMENOrdering Facility: [facility] Address: [address] [place] [address] Performed By: #### 2 4323-8, ####[facility] LABIA [id number] [place] [address] [place] Creatinine and Glomerular filtration rate.predicted panel (S/P/Bld) 54 mL/min/1.73m??? Low >=60 [facility] Comment on above: Order Comment: Alexandru campos Type: BLOOD SPECIMENOrdering Facility: [facility] Address: [address] [place] [address] Result Comment: Kristel mated Glomerular Filtration Rate [...] actual GFR. Performed By: #### 2 4323-8, ####[facility] LABIA [id number] [place] [address] [place] Glucose [Mass/Vol] 104 mg/dL High 74-99 [facility] Comment on above: Order Comment: Alexandru campos Type: BLOOD SPECIMENOrdering Facility: [facility] Address: [address] [place] [address] Result Comment: The [place] Diabetes Association (ADA) provides guidance for cutoff [...] Standards of Medical Care in Diabetes 2016, [place] [employer]. Diabetes Care. 2016.39(Suppl 1). Performed By: #### 2 8, ####[facility] LABCLIA [id number] [address] [place] [address] [place] Potassium [Moles/Vol] 3.8 mmol/L Normal 3.7-5.1 [facility] Comment on above: Order Comment: Speci men Type: BLOOD SPECIMENOrdering Facility: [facility] Address: [address] [place] [address] Performed By: #### 2 4323-01, ####[facility] LABCLIA [id number] [place] [address] [place] Protein [Mass/Vol] 7.3 g/dL Normal 6.3-8.0 [facility] Comment on above: Order Comment: Speci men Type: BLOOD SPECIMENOrdering Facility: [facility] Address: [address] [place] [address] Performed By: #### 2 4323-01, ####[facility] LABCLIA [id number] [address] [address] [place] Sodium [Moles/Vol] 139 mmol/L Normal 136-144 [facility] Comment on above: Order Comment: Speci men Type: BLOOD SPECIMENOrdering Facility: [facility] Address: [address] [place], [place] [address] Performed By: #### 2 4323-01, ####[facility] LABCLIA [id number] [address] [place] [address] [place] Urea nitrogen [Mass/Vol] 55 mg/dL High 9-24 [facility] Comment on above: Order Comment: Speci men Type: BLOOD SPECIMENOrdering Facility: [facility] Address: [address] [place], [place] [address] Performed By: #### 2 4328, ####[facility] LABCLIA [id number] [place] [address] [place] HAV IgM Ser Qlon 11-17-2024 HAV IgM Ql (S) Negative Normal Negative [facility] Comment on above: Order Comment: Speci men Type: BLOOD SPECIMENOrdering Facility: [facility] Address: [address] [place] [address] Result Comment: No e vidence of recent infection with Hepatitis A virus. Performed By: #### 3 1204-1, 5195-3, 73445-4 ####[facility] LABCLIA [id number] [place] [address] [place] HBV core IgM Ser Qlon 2024 HBV core IgM Ql (S) Negative Normal Negative [facility] Comment on above: Order Comment: Speci men Type: BLOOD SPECIMENOrdering Facility: [facility] Address: [address] [place] [address] Result Comment: No e vidence of recent infection with Hepatitis B virus. Should recent infection be suspected, repeat testing may be considered 3-4 weeks after this draw. Performed By: #### 3 1204-1, 5195-3, 71326-0 ####[facility] LABCLIA [id number] [place] [address] [place] HBV surface Ag Ser Qlon 06- HBV surface Ag Ql (S) Negative Normal Negative [facility] Comment on above: Order Comment: Speci men Type: BLOOD SPECIMENOrdering Facility: [facility] Address: [address] [place] [address] Performed By: #### 3 1204-1, 5195-3, 17214-8 ####[facility] LABCLIA [id number] [address] [place] HCV Ab Ser Qlon 11-17-2024 HCV Ab Ql (S) Negative Normal Negative [facility] Comment on above: Order Comment: Speci men Type: BLOOD SPECIMENOrdering Facility: [facility] Address: [address] [place] [address] Result Comment: The result suggests no evidence of infection with Hepatitis C virus. Should recent infection be suspected, repeat testing may be considered 4-6 weeks after this draw. Performed By: #### 1 6128-1 ####[facility] LABIA [id number] [place] [address] [place] HCV RNA BRYN+probe Qnon 11-17 HCV RNA BRYN+probe Ql Not detected Normal Not detected [facility] Comment on above: Order Comment: Speci men Type: BLOOD SPECIMENOrdering Facility: [facility] Address: [address] [place] [address] Performed By: #### 1 1011-4 ####[facility] [id number] [place] [address] [place] Iron and Iron binding capaci ty panelon 11-17-2024 Iron [Mass/Vol] 72 ug/dL Normal 41-186 [facility] Comment on above: Order Comment: Speci men Type: BLOOD SPECIMENOrdering Facility: [facility] Address: [address] [place] [address] Performed By: #### 5 0190-8 ####[facility] [id number] [address] [place] Iron binding capacity [Mass/Vol] 321 ug/dL Normal 232-386 [facility] Comment on above: Order Comment: Speci men Type: BLOOD SPECIMENOrdering Facility: [facility] Address: [address] [place] [address] Performed By: #### 5 0190-8 ####[facility] LABIA [id number] [place] [address] [place] Iron/TIBC [Molar ratio] 22.4 % Normal 15.0-57.0 [facility] Comment on above: Order Comment: Speci men Type: BLOOD SPECIMENOrdering Facility: [facility] Address: [address] [place] [address] Performed By: #### 5 0190-8 ####[facility] LABCLIA [id number] [place] [address] [place] Magnesium SerPl-mCncon 11-17 Magnesium [Mass/Vol] 2.3 mg/dL Normal 1.7-2.3 [facility] Comment on above: Order Comment: Speci men Type: BLOOD SPECIMENOrdering Facility: [facility] Address: [address] [place] [address] Performed By: #### 2 4323-8, 06812-3 ####[facility] LABCLIA [id number] [place] [address] [place] CBC W Auto Differential pane l (Bld)on 11-12-2024 Basophils (Bld) [#/Vol] 10*3/uL Normal <0.11 [facility] Comment on above: Order Comment: Speci men Type: BLOOD SPECIMENOrdering Facility: [facility] Address: [address] [place] [address] Performed By: #### 5 7021-8 ####[facility] LABIA [id number] [place] [address] [place] Basophils/100 WBC (Bld) 0.2 % Normal [facility] Comment on above: Order Comment: Speci men Type: BLOOD SPECIMENOrdering Facility: [facility] Address: [address] [place] [address] Performed By: #### 5 7021-8 ####[facility] LABCLIA [id number] [place] [id number] [place] Differential cell count method Nom (Bld) Auto Normal [facility] Comment on above: Order Comment: Speci men Type: BLOOD SPECIMENOrdering Facility: [facility] Address: [address] [place] [address] Performed By: #### 5 7021-8 ####[facility] LABIA [id number] [place] [id number] [place] Eosinophils (Bld) [#/Vol] 10*3/uL Normal <0.46 [facility] Comment on above: Order Comment: Speci men Type: BLOOD SPECIMENOrdering Facility: [facility] Address: [address] [place] [address] Performed By: #### 5 7021-8 ####[facility] LABCLIA [id number] [place] [address] [place] Eosinophils/100 WBC (Bld) 0.0 % Normal [facility] Comment on above: Order Comment: Speci men Type: BLOOD SPECIMENOrdering Facility: [facility] Address: [address] [place] [address] Performed By: #### 5 7021-8 ####[facility] LABCLIA [id number] [place] [address] [place] Erythrocyte distribution width (RBC) [Ratio] 16.6 % High 11.5-15.0 [facility] Comment on above: Order Comment: Speci men Type: BLOOD SPECIMENOrdering Facility: [facility] Address: [address] [place] [address] Performed By: #### 5 7021-8 ####[facility] LABCLIA [id number] [place] [address] [place] Hematocrit (Bld) [Volume fraction] 37.1 % Low 39.0-51.0 [facility] Comment on above: Order Comment: Speci men Type: BLOOD SPECIMENOrdering Facility: [facility] Address: [address] [place] [address] Performed By: #### 5 7021-8 ####[facility] LABCLIA [id number] [place] [address] [place] Hemoglobin (Bld) [Mass/Vol] 12.3 g/dL Low 13.0-17.0 [facility] Comment on above: Order Comment: Speci men Type: BLOOD SPECIMENOrdering Facility: [facility] Address: [address] [place] [address] Performed By: #### 5 7021-8 ####[facility] LABCLIA [id number] [place] [address] [place] Immature granulocytes (Bld) [#/Vol] 0.16 10*3/uL High <0.10 [facility] Comment on above: Order Comment: Speci men Type: BLOOD SPECIMENOrdering Facility: [facility] Address: [address] [place] [address] Performed By: #### 5 7021-8 ####[facility] LABCLIA [id number] [place] [address] [place] Immature granulocytes/100 WBC (Bld) 1.8 % Normal [facility] Comment on above: Order Comment: Speci men Type: BLOOD SPECIMENOrdering Facility: [facility] Address: [address] [place] [address] Performed By: #### 5 7021-8 ####[facility] LABIA [id number] [place] [address] [place] Lymphocytes (Bld) [#/Vol] 0.91 10*3/uL Low 1.00-4.00 [facility] Comment on above: Order Comment: Speci men Type: BLOOD SPECIMENOrdering Facility: [facility] Address: [address] [place] [address] Performed By: #### 5 7021-8 ####[facility] LABCLIA [id number] [place] [address] [place] Lymphocytes/100 WBC (Bld) 10.4 % Normal [facility] Comment on above: Order Comment: Speci men Type: BLOOD SPECIMENOrdering Facility: [facility] Address: [address] [place] [address] Performed By: #### 5 7021-8 ####[facility] LABCLIA [id number] [address] [place] MCH (RBC) [Entitic mass] 32.2 pg Normal 26.0-34.0 [facility] Comment on above: Order Comment: Speci men Type: BLOOD SPECIMENOrdering Facility: [facility] Address: [address] [place] [address] Performed By: #### 5 7021-8 ####[facility] LABIA [id number] [place] [address] [place] MCHC (RBC) [Mass/Vol] 33.2 g/dL Normal 30.5-36.0 [facility] Comment on above: Order Comment: Speci men Type: BLOOD SPECIMENOrdering Facility: [facility] Address: [address] [place] [address] Performed By: #### 5 7021-8 ####[facility] LABCLIA [id number] [place] [address] [place] MCV (RBC) [Entitic vol] 97.1 fL Normal 80.0-100.0 [facility] Comment on above: Order Comment: Speci men Type: BLOOD SPECIMENOrdering Facility: [facility] Address: [address] [place] [address] Performed By: #### 5 7021-8 ####[facility] LABIA [id number] [place] [address] [place] Monocytes (Bld) [#/Vol] 0.67 10*3/uL Normal <0.87 [facility] Comment on above: Order Comment: Speci men Type: BLOOD SPECIMENOrdering Facility: [facility] Address: [address] [place] [address] Performed By: #### 5 7021-8 ####[facility] LABCLIA [id number] [place] [address] [place] Monocytes/100 WBC (Bld) 7.6 % Normal [facility] Comment on above: Order Comment: Speci men Type: BLOOD SPECIMENOrdering Facility: [facility] Address: [address] [place] [address] Performed By: #### 5 7021-8 ####[facility] LABCLIA [id number] [place] [address] [place] Neutrophils (Bld) [#/Vol] 7.03 10*3/uL Normal 1.45-7.50 [facility] Comment on above: Order Comment: Speci men Type: BLOOD SPECIMENOrdering Facility: [facility] Address: [address] [place] [address] Performed By: #### 5 7021-8 ####[facility] LABCLIA [id number] [place] [address] [place] Neutrophils/100 WBC (Bld) 80.0 % Normal [facility] Comment on above: Order Comment: Speci men Type: BLOOD SPECIMENOrdering Facility: [facility] Address: [address] [place] [address] Performed By: #### 5 7021-8 ####[facility] LABCLIA [id number] [place] [address] [place] Nucleated RBC (Bld) [#/Vol] 10*3/uL Normal <0.01 [facility] Comment on above: Order Comment: Speci men Type: BLOOD SPECIMENOrdering Facility: [facility] Address: [address] [place] [address] Performed By: #### 5 7021-8 ####[facility] LABCLIA [id number] [place] [id number] [place] Nucleated RBC/100 WBC (Bld) [Ratio] 0.0 /100 WBC Normal [facility] Comment on above: Order Comment: Speci men Type: BLOOD SPECIMENOrdering Facility: [facility] Address: [address] [place] [address] Performed By: #### 5 7021-8 ####[facility] LABCLIA [id number] [address] [place] [address] [place] Platelet mean volume (Bld) [Entitic vol] 10.0 fL Normal 9.0-12.7 [facility] Comment on above: Order Comment: Speci men Type: BLOOD SPECIMENOrdering Facility: [facility] Address: [address] [place] [address] Performed By: #### 5 7021-8 ####[facility] LABCLIA [id number] [address], [facility]95 [place] Platelets (Bld) [#/Vol] 189 10*3/uL Normal 150-400 [facility] Comment on above: Order Comment: Speci men Type: BLOOD SPECIMENOrdering Facility: [facility] Address: [address] [place] [address] Performed By: #### 5 7021-8 ####[facility] LABCLIA [id number] [place] [address] [place] RBC (Bld) [#/Vol] 3.82 10*6/uL Low 4.20-6.[address] [facility] Comment on above: Order Comment: Speci men Type: BLOOD SPECIMENOrdering Facility: [facility] Address: [address] [place] [address] Performed By: #### 5 7021-8 ####[facility] LABCLIA [id number] [place] [address] [place] WBC (Bld) [#/Vol] 8.79 10*3/uL Normal 3.70-11.[address] [facility] Comment on above: Order Comment: Speci men Type: BLOOD SPECIMENOrdering Facility: [facility] Address: [address] [place] [address] Performed By: #### 5 7021-8 ####[facility] LABCLIA [id number] [address] [place] [address] [place] Comprehensive metabolic 2000 panelon 11-12-2024 Albumin [Mass/Vol] 3.8 g/dL Low 3.9-4.9 [facility] Comment on above: Order Comment: Speci men Type: BLOOD SPECIMENOrdering Facility: [facility] Address: [address] [place] [address] Performed By: #### 1 9123-9, 94830-7, [id number], 64911-1 ####[facility] LABCLIA [id number] [place] [address] [place] ALP [Catalytic activity/Vol] 108 U/L Normal 38-113 [facility] Comment on above: Order Comment: Speci men Type: BLOOD SPECIMENOrdering Facility: [facility] Address: [address] [place] [address] Performed By: #### 1 9123-9, 10128-9, RDQ1691, 42704-2 ####[facility] LABCLIA [id number] [place] [address] [place] ALT [Catalytic activity/Vol] 40 U/L Normal 10-54 [facility] Comment on above: Order Comment: Speci men Type: BLOOD SPECIMENOrdering Facility: [facility] Address: [address] [place] [address] Performed By: #### 1 9123-9, 47704-6, NHV0106, 39662-2 ####[facility] LABCLIA [id number] [place] [address] [place] Anion gap [Moles/Vol] 15 mmol/L Normal 8-15 [facility] Comment on above: Order Comment: Speci men Type: BLOOD SPECIMENOrdering Facility: [facility] Address: [address] [place] [address] Performed By: #### 1 9123-9, 88020-2, MEY1998, 08792-8 ####[facility] LABCLIA [id number] [address], [facility]95 [place] AST [Catalytic activity/Vol] 46 U/L High 14-40 [facility] Comment on above: Order Comment: Speci men Type: BLOOD SPECIMENOrdering Facility: [facility] Address: [address] [place] [address] Performed By: #### 1 9123-9, 47600-5, GBH2407, 06480-4 ####[facility] LABCLIA [id number] [place] [address] [place] Bilirubin [Mass/Vol] 0.7 mg/dL Normal 0.2-1.3 [facility] Comment on above: Order Comment: Speci men Type: BLOOD SPECIMENOrdering Facility: [facility] Address: [address] [place] [address] Performed By: #### 1 9123-9, 05931-1, [id number], 16078-8 ####[facility] LABCLIA [id number] [place] [address] [place] Calcium [Mass/Vol] 8.8 mg/dL Normal 8.5-10.2 [facility] Comment on above: Order Comment: Speci men Type: BLOOD SPECIMENOrdering Facility: [facility] Address: [address] [place] [address] Performed By: #### 1 9123-9, 33885-5, DHU9444, 49277-3 ####[facility] LABCLIA [id number] [place] [address] [place] Chloride [Moles/Vol] 103 mmol/L Normal 98-107 [facility] Comment on above: Order Comment: Speci men Type: BLOOD SPECIMENOrdering Facility: [facility] Address: [address] [place] [address] Performed By: #### 1 9123-9, 88891-8, [id number], 81672-8 ####[facility] LABCLIA [id number] [place] [address] [place] CO2 [Moles/Vol] 23 mmol/L Normal 22-30 [facility] Comment on above: Order Comment: Speci men Type: BLOOD SPECIMENOrdering Facility: [facility] Address: [address] [place] [address] Performed By: #### 1 9123-9, 81207-0, CWM2031, 97389-4 ####[facility] LABCLIA [id number] [address] [address] [place] Creatinine [Mass/Vol] 1.12 mg/dL Normal 0.73-1.22 [facility] Comment on above: Order Comment: Speci men Type: BLOOD SPECIMENOrdering Facility: [facility] Address: [address] [place] [address] Performed By: #### 1 9123-9, 51764-4, GAS5800, 05981-2 ####[facility] LABCLIA [id number] [place] [address] [place] Creatinine and Glomerular filtration rate.predicted panel (S/P/Bld) 69 mL/min/1.73m??? Normal >=60 [facility] Comment on above: Order Comment: Antonellai beth Type: BLOOD SPECIMENOrdering Facility: [facility] Address: [address] [place] [address] Result Comment: Kristel mated Glomerular Filtration Rate [...] actual GFR. Performed By: #### 1 9123-9, 74808-9, RPC1654, 95309-8 ####[facility] LABCLIA [id number] [address] [address] [place] Glucose [Mass/Vol] 115 mg/dL High 74-99 [facility] Comment on above: Order Comment: Speci men Type: BLOOD SPECIMENOrdering Facility: [facility] Address: [address] [place] [address] Result Comment: The [place] Diabetes Association (ADA) provides guidance for cutoff [...] Standards of Medical Care in Diabetes 2016, [place] [employer]. Diabetes Care. 2016.39(Suppl 1). Performed By: #### 1 9123-9, 58102-6, HIN9472, 70020-9 ####[facility] LABCLIA [id number] [place] [address] [place] Potassium [Moles/Vol] 3.3 mmol/L Low 3.7-5.1 [facility] Comment on above: Order Comment: Speci men Type: BLOOD SPECIMENOrdering Facility: [facility] Address: [address] [place] [address] Performed By: #### 1 9123-9, 81996-6, CWV9569, 02168-8 ####[facility] LABCLIA [id number] [place] [address] [place] Protein [Mass/Vol] 6.7 g/dL Normal 6.3-8.0 [facility] Comment on above: Order Comment: Speci men Type: BLOOD SPECIMENOrdering Facility: [facility] Address: [address] [place], [place] [address] Performed By: #### 1 9123-9, 36664-1, GCA6468, 94832-8 ####[facility] LABCLIA [id number] [place] [address] [place] Sodium [Moles/Vol] 141 mmol/L Normal 136-144 [facility] Comment on above: Order Comment: Speci men Type: BLOOD SPECIMENOrdering Facility: [facility] Address: [address] [place] [address] Performed By: #### 1 9123-9, 77902-1, HPA2027, 69869-5 ####[facility] LABCLIA [id number] [place] [address] [place] Urea nitrogen [Mass/Vol] 37 mg/dL High 9-24 [facility] Comment on above: Order Comment: Speci men Type: BLOOD SPECIMENOrdering Facility: [facility] Address: [address] [place] [address] Performed By: #### 1 9123-9, 77940-0, WPS8544, 86620-2 ####[facility] LABCLIA [id number] [place] [address] [place] ECG COMPLETEon 11-12-2024 ECG COMPLETE Normal [facility] ED NOTEon 11-12-2024 ED NOTE HNO ID: [id number] Author: EDWIN MANSFIELD RN Service: ? Author Type: Registered Nurse Type: ED Notes Filed: 11/12/2024 19:04 Note Text: Pt. D/c as ordered Pt .verbalized understanding of all d/c instructions. No further needs noted at this time. Normal [facility] ED NOTE Normal [facility] ED PROGRESS NOTE (PROVIDER)o n 11-12-2024 ED PROGRESS NOTE (PROVIDER) Normal [facility] ED PROV NOTEon 11-12-2024 ED PROV NOTE Normal [facility] ED Triage Noteon 11-12-2024 ED Triage Note Normal [facility] HIGH SENSITIVITY TROPONIN T (INITIAL)on 11-12-2024 Troponin T.cardiac High sensitivity method [Mass/Vol] 18 ng/L High <12 [facility] Comment on above: Order Comment: Speci men Type: BLOOD SPECIMENOrdering Facility: [facility] Address: [address] [place] [address] Performed By: #### 1 9123-9, 49483-5, SMV7032, 77804-9 ####[facility] LABIA [id number] [place] [address] [place] HIGH SENSITIVITY TROPONIN T (SECOND)on 11-12-2024 Troponin T.cardiac High sensitivity method [Mass/Vol] 17 ng/L High <12 [facility] Comment on above: Order Comment: Speci men Type: BLOOD SPECIMENOrdering Facility: [facility] Address: [address] [place] [address] Performed By: #### L [id number] ####[facility] LABIA [id number] [address] HIGH SENSITIVITY TROPONIN T (THIRD) 3 HRS AFTER INITIALon 11-12-2024 Troponin T.cardiac High sensitivity method [Mass/Vol] 16 ng/L High <12 [facility] Comment on above: Order Comment: Speci men Type: BLOOD SPECIMENOrdering Facility: [facility] Address: [address] [place] [address] Performed By: #### L [id number] ####[facility] [id number] [place] [address] [place] Magnesium SerPl-mCncon 11-12 Magnesium [Mass/Vol] 2.1 mg/dL Normal 1.7-2.3 [facility] Comment on above: Order Comment: Speci men Type: BLOOD SPECIMENOrdering Facility: [facility] Address: [address] [place] [address] Performed By: #### 1 9123-9, 18819-5, ITB1369, 63774-5 ####[facility] LABIA [id number] [place] [address] [place] NT-proBNP SerPl-mCncon 11-12 Natriuretic peptide.B prohormone N-Terminal [Mass/Vol] 465 pg/mL High <125 [facility] Comment on above: Order Comment: Speci men Type: BLOOD SPECIMENOrdering Facility: [facility] Address: [address] [place], [place] [address] Performed By: #### 1 9123-9, 45024-3, WXK1928, 71689-2 ####[facility] LABCLIA [id number] BRIELLE LONGBOAT KEYJONAS [address] [address] [place] US DVT LOWER BILon US DVT LOWER ROCIO Normal [facility] XR CHEST 2V FRONTAL/LATon XR CHEST 2V FRONTAL/LAT Normal [facility] Basic metabolic 2000 panelon 11-05-2024 Anion gap [Moles/Vol] 13 mmol/L Normal 8-15 [facility] Comment on above: Order Comment: Speci men Type: BLOOD SPECIMENOrdering Facility: [facility] Address: [address] [place] [address] Performed By: #### 1 9123-9, 01797-4 ####[facility] LABCLIA [id number] [place] [address] Calcium [Mass/Vol] 9.0 mg/dL Normal 8.5-10.2 [facility] Comment on above: Order Comment: Speci men Type: BLOOD SPECIMENOrdering Facility: [facility] Address: [address] [place] [address] Performed By: #### 1 9123-9, 13467-7 ####[facility] LABCLIA [id number] [place] [address] Chloride [Moles/Vol] 100 mmol/L Normal 98-107 [facility] Comment on above: Order Comment: Speci men Type: BLOOD SPECIMENOrdering Facility: [facility] Address: [address] [place] [address] Performed By: #### 1 9123-9, 50941-6 ####[facility] LABCLIA [id number] [place] [address] CO2 [Moles/Vol] 25 mmol/L Normal 22-30 [facility] Comment on above: Order Comment: Speci men Type: BLOOD SPECIMENOrdering Facility: [facility] Address: [address] [place] [address] Performed By: #### 1 9123-9, 53880-1 ####[facility] LABCLIA [id number] [place] [address] Creatinine [Mass/Vol] 1.08 mg/dL Normal 0.73-1.22 [facility] Comment on above: Order Comment: Speci men Type: BLOOD SPECIMENOrdering Facility: [facility] Address: [address] [place] [address] Performed By: #### 1 9123-9, 95566-5 ####[facility] LABCLIA [id number] [place] [address] Creatinine and Glomerular filtration rate.predicted panel (S/P/Bld) 72 mL/min/1.73m??? Normal >=60 [facility] Comment on above: Order Comment: Speci men Type: BLOOD SPECIMENOrdering Facility: [facility] Address: [address] [place] [address] Result Comment: Kristel mated Glomerular Filtration Rate [...] actual GFR. Performed By: #### 1 9123-9, 03235-8 ####[facility] LABIA [id number] [place] [address] Glucose [Mass/Vol] 140 mg/dL High 74-99 [facility] Comment on above: Order Comment: Speci men Type: BLOOD SPECIMENOrdering Facility: [facility] Address: [address] [place] [id number] Result Comment: The [place] Diabetes Association (ADA) provides guidance for cutoff [...] Standards of Medical Care in Diabetes 2016, [place] [employer]. Diabetes Care. 2016.39(Suppl 1). Performed By: #### 1 9123-9, 42866-5 ####[facility] LABCLIA [id number] [place] [address] Potassium [Moles/Vol] 4.0 mmol/L Normal 3.7-5.1 [facility] Comment on above: Order Comment: Speci men Type: BLOOD SPECIMENOrdering Facility: [facility] Address: [address] [place] [address] Performed By: #### 1 91239, 15448-6 ####[facility] LABIA [id number] [place] [address] Sodium [Moles/Vol] 138 mmol/L Normal 136-144 [facility] Comment on above: Order Comment: Speci men Type: BLOOD SPECIMENOrdering Facility: [facility] Address: [address] [place] [address] Performed By: #### 1 91239, 29594-3 ####[facility] LABCLIA [id number] [place] [address] Urea nitrogen [Mass/Vol] 39 mg/dL High 9-24 [facility] Comment on above: Order Comment: Speci men Type: BLOOD SPECIMENOrdering Facility: [facility] Address: [address] [place] [address] Performed By: #### 1 9123-9, 40184-7 ####[facility] LABCLIA [id number] [place] [address] CBC panel Auto (Bld)on 11-05 Erythrocyte distribution width (RBC) [Ratio] 16.2 % High 11.5-15.0 [facility] Comment on above: Order Comment: Speci men Type: BLOOD SPECIMENOrdering Facility: [facility] Address: [address] [place] [address] Performed By: #### 5 8410-2 ####[facility] LABCLIA [id number] [place] [address] Hematocrit (Bld) [Volume fraction] 38.3 % Low 39.0-51.0 [facility] Comment on above: Order Comment: Speci men Type: BLOOD SPECIMENOrdering Facility: [facility] Address: [address] [place] [address] Performed By: #### 5 8410-2 ####[facility] LABCLIA [id number] [place] [address] Hemoglobin (Bld) [Mass/Vol] 12.4 g/dL Low 13.0-17.0 [facility] Comment on above: Order Comment: Speci men Type: BLOOD SPECIMENOrdering Facility: [facility] Address: [address] [place] [address] Performed By: #### 5 8410-2 ####[facility] LABCLIA [id number] [place] [address] MCH (RBC) [Entitic mass] 31.9 pg Normal 26.0-34.0 [facility] Comment on above: Order Comment: Speci men Type: BLOOD SPECIMENOrdering Facility: [facility] Address: [address] [place] [address] Performed By: #### 5 8410-2 ####[facility] LABCLIA [id number] [place] [address] MCHC (RBC) [Mass/Vol] 32.4 g/dL Normal 30.5-36.0 [facility] Comment on above: Order Comment: Speci men Type: BLOOD SPECIMENOrdering Facility: [facility] Address: [address] [place] [address] Performed By: #### 5 8410-2 ####[facility] LABCLIA [id number] [place] [address] MCV (RBC) [Entitic vol] 98.5 fL Normal 80.0-100.0 [facility] Comment on above: Order Comment: Speci men Type: BLOOD SPECIMENOrdering Facility: [facility] Address: [address] [place] [address] Performed By: #### 5 8410-2 ####[facility] LABCLIA [id number] [place] [address] Nucleated RBC (Bld) [#/Vol] 10*3/uL Normal <0.01 [facility] Comment on above: Order Comment: Speci men Type: BLOOD SPECIMENOrdering Facility: [facility] Address: [address] [place] [address] Performed By: #### 5 8410-2 ####[facility] LABIA [id number] [place] [address] Platelet mean volume (Bld) [Entitic vol] 9.8 fL Normal 9.0-12.7 [facility] Comment on above: Order Comment: Speci men Type: BLOOD SPECIMENOrdering Facility: [facility] Address: [address] [place] [address] Performed By: #### 5 8410-2 ####[facility] LABCLIA [id number] [place] [address] Platelets (Bld) [#/Vol] 150 10*3/uL Normal 150-400 [facility] Comment on above: Order Comment: Speci men Type: BLOOD SPECIMENOrdering Facility: [facility] Address: [address] [place] [address] Performed By: #### 5 8410-2 ####[facility] LABCLIA [id number] [place] [address] RBC (Bld) [#/Vol] 3.89 10*6/uL Low 4.20-6.[address] [facility] Comment on above: Order Comment: Speci men Type: BLOOD SPECIMENOrdering Facility: [facility] Address: [address] [place] [address] Performed By: #### 5 8410-2 ####[facility] LABIA [id number] [place] [address] WBC (Bld) [#/Vol] 8.65 10*3/uL Normal 3.70-11.[address] [facility] Comment on above: Order Comment: Speci men Type: BLOOD SPECIMENOrdering Facility: [facility] Address: [address] [place] [address] Performed By: #### 5 8410-2 ####[facility] LABIA [id number] [place] [address] Magnesium SerPl-ncon 11-05 Magnesium [Mass/Vol] 2.4 mg/dL High 1.7-2.3 [facility] Comment on above: Order Comment: Speci men Type: BLOOD SPECIMENOrdering Facility: [facility] Address: [address] [place] [address] Performed By: #### 1 9123-9, 97276-9 ####[facility]ERYARELI [facility] LABIA [id number] [place] [address] CNPNevaeh 11-04-2024 CNPN Telephone (AVXRCT) -- SAV RAYMUNDO ([id number]) 1950 M Date Time Provider Department 11/04/24 [...] ask any questions. Thank you Xiomara Ly APRN.PRODUCT DEMONSTRATOR 11/07/2024 11:17 PM Signed Reviewed notification. No further action needed at this time. Xiomara Ly APRN.PRODUCT DEMONSTRATOR Allergies As of Date: 11/04/2024 Noted Allergy Reaction TRAMADOL 12/15/2020 1 - Mental Status Change Date Reviewed: 11/04/2024 Reviewed by: Dragan Lopez CT - Fully Assessed Reason for Visit: Radiology CT [8230] Patient Update [1234] Prescriptions as of 11/07/2024 [...] tablet by mouth once daily. - calcium qbl-qip-L8-Zn-[employer]-kian 250 mg-40 mg- 125 unit-3.75mg tab [...] Encounter Status:Closed by DRAGAN LOPEZ on 11/04/[address] [facility] [address] ENTEROGRAPHY W IVCONon CT [...] WITH RIGHT PLEURAL CATHETER. SMALL HIATAL HERNIA. 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: PSCAc Transcribe Date/Time: Nov 04 2024 3:57P Dictated by : IZABELA LAMBERT MD This examination was interpreted and the report reviewed and electronically signed by: IZABELA LAMBERT MD on Nov 04 2024 5:14PM EST [id number] Normal [facility] NURSING PROGon 11-04-2024 NURSING PROG HNO ID: [id number] Author: COLBY VAZQUEZ RN Service: Radiology Author [...] November 04, 2024 TIME: 1:45 PM Normal [facility] NURSING PROG HNO ID: [id number] Author: COLBY VAZQUEZ RN Service: Radiology Author [...] None Electronically Signed By: Colby Vazquez Normal [facility] FAT, FECAL QUALon 10-28-2024 FAT, FECAL - NEUTRAL Normal Normal Normal [facility] Comment on above: Order Comment: Speci men Type: STOOL SPECIMENOrdering Facility: [facility] Address: [address] [place] [address] Performed By: #### F FATQL ####[facility] LABORATORIESCLIA [id number] [place] [address] FAT, FECAL - SPLIT Normal Normal Normal [facility] Comment on above: Order Comment: Speci men Type: STOOL SPECIMENOrdering Facility: [facility] Address: [address] [place] [address] Result Comment: INTE RPRETIVE INFORMATION: Fecal Fat QualitativeNeutral fats include the monoglycerides, diglycerides, andtriglycerides while split fats are the free fatty acidsthat are liberated from them. Impaired synthesis orsecretion of pancreatic enzymes or bile may cause anincrease in neutral fats while an increase in split fatssuggests impaired absorption of nutrients.Performed By: [address] [place] [address] [id number] Director: Anne-Marie Correa MD, PhDCLIA Number: [id number] Performed By: #### F FATQL ####[facility] LABORATORIESCLIA [id number] [place] [address] Amylase SerPl-cCncon 025 Amylase [Catalytic activity/Vol] 70 U/L Normal 30-104 [facility] Comment on above: Order Comment: Speci men Type: BLOOD SPECIMEN Ordering Facility: [facility] Address: [address] [place] [address] Performed By: #### L [id number] #### [facility] CLIA [id number] [address] [place] [address] [place] CNPNon 10-23-2024 CNPN Normal [facility] IGG SUBCLASS 1,2,3,4on 10-23 IgG subclass 1 (S) [Mass/Vol] 576.5 mg/dL Normal 382.4-928.6 [facility] Comment on above: Order Comment: Speci men Type: BLOOD SPECIMEN Ordering Facility: [facility] Address: [address] [place] [address] Performed By: #### I [id number] #### [place] [facility] CLIA [id number] [address] [place] [address] [place] IgG subclass 2 (S) [Mass/Vol] 251.2 mg/dL Normal 241.8-700.3 [facility] Comment on above: Order Comment: Speci men Type: BLOOD SPECIMEN Ordering Facility: [facility] Address: [address] [place] [address] Performed By: #### I [id number] #### [facility] CLIA [id number] [address] [place] [address] [place] IgG subclass 3 (S) [Mass/Vol] 50.4 mg/dL Normal 21.8-176.1 [facility] Comment on above: Order Comment: Speci men Type: BLOOD SPECIMEN Ordering Facility: [facility] Address: [address] [place] [address] Performed By: #### I [id number] #### [facility] CLIA [id number] [address] [place] [address] [place] IgG subclass 4 (S) [Mass/Vol] 64.4 mg/dL Normal 3.9-86.4 [facility] Comment on above: Order Comment: Speci men Type: BLOOD SPECIMEN Ordering Facility: [facility] Address: [address] [place] [address] Performed By: #### I [id number] #### [facility] CLIA [id number] [address] [place] [address] [place] IgG SerPl-mCncon 10-23-2024 IgG [Mass/Vol] 1100 mg/dL Normal 700-1600 [facility] Comment on above: Order Comment: Speci men Type: BLOOD SPECIMEN Ordering Facility: [facility] Address: [address] [place] [address] Performed By: #### 2 465-3 #### [facility] CLIA [id number] [address] [place] [address] [place] Lipase SerPl-cCncon 10-24-19 25 Lipase [Catalytic activity/Vol] 55 U/L Normal 16-61 [facility] Comment on above: Order Comment: Speci men Type: BLOOD SPECIMEN Ordering Facility: [facility] Address: [address] [place] [address] Performed By: #### L [id number], [id number] #### [facility] CLIA [id number] [address] [place] [address] [place] US ABD RIGHT UPPER QUADRANTo n 10-23-2024 US ABD RIGHT UPPER QUADRANT * * *Final Report* * * DATE OF EXAM: Oct 23 2024 2:18PM [facility] 1032 - US ABD RIGHT UPPER QUADRANT [...] 2. Small volume abdominal ascites. No splenomegaly. 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: ALONSO Transcribe Date/Time: Oct 26 2024 2:30P Dictated by : SANDRA BELTRE MD This examination was interpreted and the report reviewed and electronically signed by: SANDRA BELTRE MD on Oct 26 2024 2:34PM EST [id number] Normal [facility] ABD SPLEEN -NBon 10-24-19 US ABD SPLEEN -NB * * *Final Report* * * DATE OF EXAM: Oct 23 2024 2:18PM [facility] 1232 - US ABD SPLEEN -NB / [...] 2. Small volume abdominal ascites. No splenomegaly. 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: ALONSO Transcribe Date/Time: Oct 26 2024 2:30P Dictated by : SANDRA BELTRE MD This examination was interpreted and the report reviewed and electronically signed by: SANDRA BELTRE MD on Oct 26 2024 2:34PM EST [id number] Normal [facility] US Chest limitedon [facility] ALKALINE PHOSPHATASE ISOENZY MES (P)on 10-15-2024 ALK PHOS BONE % 18.1 % Normal 10.7-68.3 [facility] Comment on above: Order Comment: Speci men Type: BLOOD SPECIMENOrdering Facility: [facility] Address: [address] [place] [address] Performed By: #### A LKISOP ####[facility] [id number] [place] [address] [place] ALK PHOS LIVER % 81.9 % Normal 26.0-86.2 [facility] Comment on above: Order Comment: Speci men Type: BLOOD SPECIMENOrdering Facility: [facility] Address: [address] [place] [address] Performed By: #### A LKISOP ####[facility] [id number] [place] [address] [place] BONE FRACTION 22.6 U/L Normal 12.9-52.6 [facility] Comment on above: Order Comment: Speci men Type: BLOOD SPECIMENOrdering Facility: [facility] Address: [address] [place] [address] Performed By: #### A LKISOP ####[facility] [id number] [place] [address] [place] INTESTINE FRACTION 0.0 U/L Normal 0.0-16.3 [facility] Comment on above: Order Comment: Speci men Type: BLOOD SPECIMENOrdering Facility: [facility] Address: [address] [place] [address] Performed By: #### A LKISOP ####[facility] [id number] [address] [place] LIVER FRACTION 102.4 U/L High 16.0-69.3 [facility] Comment on above: Order Comment: Speci men Type: BLOOD SPECIMENOrdering Facility: [facility] Address: [address] [place] [address] Performed By: #### A LKISOP ####[facility] [id number] [address] [place] Neutrophils/100 WBC (Bld) 0.0 % Normal 0.0-24.2 [facility] Comment on above: Order Comment: Speci men Type: BLOOD SPECIMENOrdering Facility: [facility] Address: [address] [place] [address] Performed By: #### A LKISOP ####[facility] [id number] [place] [address] [place] ALP SerPl-cCncon 10-15-2024 ALP [Catalytic activity/Vol] 125 U/L High 38-113 [facility] Comment on above: Order Comment: Speci men Type: BLOOD SPECIMENOrdering Facility: [facility] Address: [address] [place] [address] Performed By: #### 6 768-6, 75403-2, 42854-7 ####[facility] [id number] [place] [address] [place] CBC W Auto Differential pane l (Bld)on 10-15-2024 Basophils (Bld) [#/Vol] [facility] Basophils/100 WBC (Bld) 0.1 % [facility] Differential cell count method Nom (Bld) Auto [facility] Eosinophils (Bld) [#/Vol] [facility] Eosinophils/100 WBC (Bld) 0 % [facility] Erythrocyte distribution width (RBC) [Ratio] 15.5 % High 11.5 - 15.0 % [facility] Hematocrit (Bld) [Volume fraction] 40.7 % 39.0 - 51.0 % [facility] Hemoglobin (Bld) [Mass/Vol] 12.9 g/dL Low 13.0 - 17.0 g/dL [facility] Immature granulocytes (Bld) [#/Vol] 0.09 10*3/uL [facility] Immature granulocytes/100 WBC (Bld) 0.8 % [facility] Interpretation and review of laboratory results Abnormal [facility] Lymphocytes (Bld) [#/Vol] 0.8 10*3/uL Low [facility] Lymphocytes/100 WBC (Bld) 7.2 % [facility] MCH (RBC) [Entitic mass] 31.2 pg 26.0 - 34.0 pg [facility] MCHC (RBC) [Mass/Vol] 31.7 g/dL 30.5 - 36.0 g/dL [facility] MCV (RBC) [Entitic vol] 98.5 fL 80.0 - 100.0 fL [facility] Monocytes (Bld) [#/Vol] 0.81 10*3/uL NINF [facility] Monocytes/100 WBC (Bld) 7.3 % [facility] Neutrophils (Bld) [#/Vol] 9.45 10*3/uL High [facility] Neutrophils/100 WBC (Bld) 84.6 % [facility] Nucleated RBC (Bld) [#/Vol] NINF [facility] Nucleated RBC/100 WBC (Bld) [Ratio] 0 % /100 WBC [facility] Platelet mean volume (Bld) [Entitic vol] 10.5 fL 9.0 - 12.7 fL [facility] Platelets (Bld) [#/Vol] 202 10*3/uL [facility] RBC (Bld) [#/Vol] 4.13 10*6/uL Low 4.20 - 6.0 0 m/uL [facility] WBC (Bld) [#/Vol] 11.16 10*3/uL High [facility] Basophils (Bld) [#/Vol] 10*3/uL Normal <0.11 [facility] Comment on above: Order Comment: Speci men Type: BLOOD SPECIMENOrdering Facility: [facility] Address: [address] [place] [address] Performed By: #### 5 7021-8, 4537-7 ####[facility] [id number] [place] [address] [place] Basophils/100 WBC (Bld) 0.1 % Normal [facility] Comment on above: Order Comment: Speci men Type: BLOOD SPECIMENOrdering Facility: [facility] Address: [address] [place] [address] Performed By: #### 5 7021-8, 4537-7 ####[facility] [id number] [place] [address] [place] Differential cell count method Nom (Bld) Auto Normal [facility] Comment on above: Order Comment: Speci men Type: BLOOD SPECIMENOrdering Facility: [facility] Address: [address] [place] [address] Performed By: #### 5 7021-8, 4536-7 ####[facility] [id number] [facility] [place] [address] [place] Eosinophils (Bld) [#/Vol] 10*3/uL Normal <0.46 [facility] Comment on above: Order Comment: Speci men Type: BLOOD SPECIMENOrdering Facility: [facility] Address: [address] [place] [address] Performed By: #### 5 7021-8, 4536-7 ####[facility] [id number] [facility] [place] [address] [place] Eosinophils/100 WBC (Bld) 0.0 % Normal [facility] Comment on above: Order Comment: Speci men Type: BLOOD SPECIMENOrdering Facility: [facility] Address: [address] [place] [address] Performed By: #### 5 7021-8, 7 ####[facility] [id number] [facility] [place] [address] [place] Erythrocyte distribution width (RBC) [Ratio] 15.5 % High 11.5-15.0 [facility] Comment on above: Order Comment: Speci men Type: BLOOD SPECIMENOrdering Facility: [facility] Address: [address] [place] [address] Performed By: #### 5 7021-8, 7 ####[facility] [id number] [facility] [place] [address] [place] Hematocrit (Bld) [Volume fraction] 40.7 % Normal 39.0-51.0 [facility] Comment on above: Order Comment: Speci men Type: BLOOD SPECIMENOrdering Facility: [facility] Address: [address] [place] [address] Performed By: #### 5 7021-8, 4536-7 ####[facility] [id number] [place] [address] [place] Hemoglobin (Bld) [Mass/Vol] 12.9 g/dL Low 13.0-17.0 [facility] Comment on above: Order Comment: Speci men Type: BLOOD SPECIMENOrdering Facility: [facility] Address: [address] [place] [address] Performed By: #### 5 7021-8, 4537-7 ####[facility] [id number] [place] [address] [place] Immature granulocytes (Bld) [#/Vol] 0.09 10*3/uL Normal <0.10 [facility] Comment on above: Order Comment: Speci men Type: BLOOD SPECIMENOrdering Facility: [facility] Address: [address] [place] [address] Performed By: #### 5 7021-8, 7-7 ####[facility] [id number] [place] [address] [place] Immature granulocytes/100 WBC (Bld) 0.8 % Normal [facility] Comment on above: Order Comment: Speci men Type: BLOOD SPECIMENOrdering Facility: [facility] Address: [address] [place] [address] Performed By: #### 5 7021-8, 7-7 ####[facility] [id number] [place] [address] [place] Lymphocytes (Bld) [#/Vol] 0.80 10*3/uL Low 1.00-4.00 [facility] Comment on above: Order Comment: Speci men Type: BLOOD SPECIMENOrdering Facility: [facility] Address: [address] [place] [address] Performed By: #### 5 7021-8, 7-7 ####[facility] [id number] [place] [address] [place] Lymphocytes/100 WBC (Bld) 7.2 % Normal [facility] Comment on above: Order Comment: Speci men Type: BLOOD SPECIMENOrdering Facility: [facility] Address: [address] [place] [address] Performed By: #### 5 7021-8, 4536-7 ####[facility] [id number] [place] [address] [place] MCH (RBC) [Entitic mass] 31.2 pg Normal 26.0-34.0 [facility] Comment on above: Order Comment: Speci men Type: BLOOD SPECIMENOrdering Facility: [facility] Address: [address] [place] [address] Performed By: #### 5 7021-8, 4536-7 ####[facility] [id number] [place] [address] [place] MCHC (RBC) [Mass/Vol] 31.7 g/dL Normal 30.5-36.0 [facility] Comment on above: Order Comment: Speci men Type: BLOOD SPECIMENOrdering Facility: [facility] Address: [address] [place] [address] Performed By: #### 5 7021-8, 7 ####[facility] [id number] [place] [address] [place] MCV (RBC) [Entitic vol] 98.5 fL Normal 80.0-100.0 [facility] Comment on above: Order Comment: Speci men Type: BLOOD SPECIMENOrdering Facility: [facility] Address: [address] [place] [address] Performed By: #### 5 7021-8, 4536-7 ####[facility] [id number] [place] [address] [place] Monocytes (Bld) [#/Vol] 0.81 10*3/uL Normal <0.87 [facility] Comment on above: Order Comment: Speci men Type: BLOOD SPECIMENOrdering Facility: [facility] Address: [address] [place] [address] Performed By: #### 5 7021-8, 4536-7 ####[facility] [id number] [place] [address] [place] Monocytes/100 WBC (Bld) 7.3 % Normal [facility] Comment on above: Order Comment: Speci men Type: BLOOD SPECIMENOrdering Facility: [facility] Address: [address] [place] [address] Performed By: #### 5 7021-8, 4536-7 ####[facility] [id number] [place] [address] [place] Neutrophils (Bld) [#/Vol] 9.45 10*3/uL High 1.45-7.50 [facility] Comment on above: Order Comment: Speci men Type: BLOOD SPECIMENOrdering Facility: [facility] Address: [address] [place] [address] Performed By: #### 5 7021-8, 4536-7 ####[facility]IA [id number] [place] [address] [place] Neutrophils/100 WBC (Bld) 84.6 % Normal [facility] Comment on above: Order Comment: Speci men Type: BLOOD SPECIMENOrdering Facility: [facility] Address: [address] [place] [address] Performed By: #### 5 7021-8, 4536-7 ####[facility]IA [id number] [place] [address] [place] Nucleated RBC (Bld) [#/Vol] 10*3/uL Normal <0.01 [facility] Comment on above: Order Comment: Speci men Type: BLOOD SPECIMENOrdering Facility: [facility] Address: [address] [place] [address] Performed By: #### 5 7021-8, 7-7 ####[facility]IA [id number] [address] [address] [place] Nucleated RBC/100 WBC (Bld) [Ratio] 0.0 /100 WBC Normal [facility] Comment on above: Order Comment: Speci men Type: BLOOD SPECIMENOrdering Facility: [facility] Address: [address] [place] [address] Performed By: #### 5 7021-8, 4536-7 ####[facility]IA [id number] [place] [id number] [place] Platelet mean volume (Bld) [Entitic vol] 10.5 fL Normal 9.0-12.7 [facility] Comment on above: Order Comment: Speci men Type: BLOOD SPECIMENOrdering Facility: [facility] Address: [address] [place] [address] Performed By: #### 5 7021-8, 4536-7 ####[facility]IA [id number] [place] [address] [place] Platelets (Bld) [#/Vol] 202 10*3/uL Normal 150-400 [facility] Comment on above: Order Comment: Speci men Type: BLOOD SPECIMENOrdering Facility: [facility] Address: [address] [place] [address] Performed By: #### 5 7021-8, 4536-7 ####[facility]IA [id number] [place] [id number] [place] RBC (Bld) [#/Vol] 4.13 10*6/uL Low 4.20-6.[address] [facility] Comment on above: Order Comment: Speci men Type: BLOOD SPECIMENOrdering Facility: [facility] Address: [address] [place] [address] Performed By: #### 5 7021-8, 7-7 ####[facility]IA [id number] [place] [id number] [place] WBC (Bld) [#/Vol] 11.16 10*3/uL High 3.70-11.00 [facility] Comment on above: Order Comment: Speci men Type: BLOOD SPECIMENOrdering Facility: [facility] Address: [address] [place] [address] Performed By: #### 5 7021-8, 4537-7 ####[facility]IA [id number] [address] [place] CNOVon 10-15-2024 CNOV Normal [facility] CNPTOUTREACHon 10-15-2024 CNPTOUTREACH Normal [facility] CRP SerPl HS-mCncon 10-16-19 CRP High sensitivity method [Mass/Vol] 13.2 mg/L High <3.1 [facility] Comment on above: Order Comment: Speci men Type: BLOOD SPECIMENOrdering Facility: [facility] Address: [address] [place] [address] Result Comment: hsCR P < 1.0 mg/L, relative risk is lowhsCRP 1.0-3.0 mg/L, relative risk is averagehsCRP > 3.0 mg/L, relative risk is highReference:Roman TA, Wilma GA, Octavio RW, et al. Markers of Inflammation and Cardiovascular Disease. Application to Clinical and Public Health Practice. A Statement for Healthcare Professionals from the Centers for Disease Control and Prevention and the [place] [employer]. Circulation 2003;107:499-511. Performed By: #### 6 768-6, 18457-1, 45933-5 ####[facility] [id number] [address] [place] Comprehensive metabolic 2000 panelon 10-15-2024 Albumin [Mass/Vol] 4.2 g/dL 3.9 - 4.9 g/dL [facility] ALP [Catalytic activity/Vol] 125 U/L High 38 - 113 U/L [facility] ALT [Catalytic activity/Vol] 41 U/L 10 - 54 U/L [facility] Anion gap [Moles/Vol] 14 mmol/L 8 - 15 mmol/L [facility] AST [Catalytic activity/Vol] 53 U/L High 14 - 40 U/L [facility] Bilirubin [Mass/Vol] 0.6 mg/dL 0.2 - 1 .3 mg/dL [facility] Calcium [Mass/Vol] 9.7 mg/dL 8.5 - 10. 2 mg/dL [facility] Chloride [Moles/Vol] 101 mmol/L 98 - 10 7 mmol/L [facility] CO2 [Moles/Vol] 27 mmol/L 22 - 30 mmol/L [facility] Creatinine [Mass/Vol] 1.09 mg/dL 0.73 - 1.22 mg/dL [facility] GFR/1.73 sq M.predicted among non-blacks MDRD (S/P/Bld) [Vol rate/Area] 72 mL/min/{1.73_m2} - PINF [facility] Comment on above: Estimated Glomerular [...] 116 mg/dL High 74 - 99 mg/dL [facility] Comment on above: The [place] Diabete s Association (ADA) provides guidance for [...] Standards of Medical Care in Diabetes 2016, [place] [employer] Association. Diabetes Care. 2016.39(Suppl 1). Potassium [Moles/Vol] 4.1 mmol/L 3.7 - 5.1 mmol/L [facility] Protein [Mass/Vol] 7.6 g/dL 6.3 - 8.0 g/dL [facility] Sodium [Moles/Vol] 142 mmol/L 136 - 144 mmol/L [facility] Urea nitrogen [Mass/Vol] 35 mg/dL High 9 - 24 mg/dL [facility] Albumin [Mass/Vol] 4.2 g/dL Normal 3.9-4.9 [facility] Comment on above: Order Comment: Speci men Type: BLOOD SPECIMENOrdering Facility: [facility] Address: [address] [place] [address] Performed By: #### 6 768-6, 13310-6, 13158-6 ####[facility] LABIA [id number] [place] [address] [place] ALT [Catalytic activity/Vol] 41 U/L Normal 10-54 [facility] Comment on above: Order Comment: Speci men Type: BLOOD SPECIMENOrdering Facility: [facility] Address: [address] [place] [address] Performed By: #### 6 768-6, 62849-2, 82843-0 ####[facility] LABIA [id number] [place] [address] [place] Anion gap [Moles/Vol] 14 mmol/L Normal 8-15 [facility] Comment on above: Order Comment: Speci men Type: BLOOD SPECIMENOrdering Facility: [facility] Address: [address] [place] [address] Performed By: #### 6 768-6, 75817-6, 27252-5 ####[facility] LABIA [id number] [place] [id number] [place] AST [Catalytic activity/Vol] 53 U/L High 14-40 [facility] Comment on above: Order Comment: Speci men Type: BLOOD SPECIMENOrdering Facility: [facility] Address: [address] [place] [address] Performed By: #### 6 768-6, 33921-6, 34250-7 ####[facility]CLIA [id number] [address] [address] [place] Bilirubin [Mass/Vol] 0.6 mg/dL Normal 0.2-1.3 [facility] Comment on above: Order Comment: Speci men Type: BLOOD SPECIMENOrdering Facility: [facility] Address: [address] [place] [address] Performed By: #### 6 768-6, 53563-6, 17454-9 ####[facility]CLIA [id number] [address] [address] [place] Calcium [Mass/Vol] 9.7 mg/dL Normal 8.5-10.2 [facility] Comment on above: Order Comment: Speci men Type: BLOOD SPECIMENOrdering Facility: [facility] Address: [address] [place] [address] Performed By: #### 6 768-6, 55631-7, ####[facility]CLIA [id number] [place] [id number] [place] Chloride [Moles/Vol] 101 mmol/L Normal 98-107 [facility] Comment on above: Order Comment: Speci men Type: BLOOD SPECIMENOrdering Facility: [facility] Address: [address] [place], [place] [address] Performed By: #### 6 768-6, 79204-6, ####[facility]CLIA [id number] [address] [address] [place] CO2 [Moles/Vol] 27 mmol/L Normal 22-30 [facility] Comment on above: Order Comment: Speci men Type: BLOOD SPECIMENOrdering Facility: [facility] Address: [address] [place], [place] [address] Performed By: #### 6 768-6, 10989-2, 72876-1 ####[facility]CLIA [id number] [address] [address] [place] Creatinine [Mass/Vol] 1.09 mg/dL Normal 0.73-1.22 [facility] Comment on above: Order Comment: Alexandru campos Type: BLOOD SPECIMENOrdering Facility: [facility] Address: [address] [place] [address] Performed By: #### 6 768-6, 07224-9, 93805-8 ####[facility] [id number] [place] [id number] [place] Creatinine and Glomerular filtration rate.predicted panel (S/P/Bld) 72 mL/min/1.73m??? Normal >=60 [facility] Comment on above: Order Comment: Alexandru campos Type: BLOOD SPECIMENOrdering Facility: [facility] Address: [address] [place] [address] Result Comment: Kristel mated Glomerular Filtration Rate [...] actual GFR. Performed By: #### 6 768-6, 82993-0, 12966-0 ####[facility] [id number] [address] [address] [place] Glucose [Mass/Vol] 116 mg/dL High 74-99 [facility] Comment on above: Order Comment: Alexandru beth Type: BLOOD SPECIMENOrdering Facility: [facility] Address: [address] [place] [address] Result Comment: The [place] Diabetes Association (ADA) provides guidance for cutoff [...] Standards of Medical Care in Diabetes 2016, [place] Diabetes Association. Diabetes Care. 2016.39(Suppl 1). Performed By: #### 6 768-6, 40258-7, 25607-0 ####[facility] LABCLIA [id number] [address] [address] [place] Potassium [Moles/Vol] 4.1 mmol/L Normal 3.7-5.1 [facility] Comment on above: Order Comment: Speci men Type: BLOOD SPECIMENOrdering Facility: [facility] Address: [address] [place] [address] Performed By: #### 6 768-6, 28736-6, ####[facility] LABCLIA [id number] [address] [address] [place] Protein [Mass/Vol] 7.6 g/dL Normal 6.3-8.0 [facility] Comment on above: Order Comment: Speci men Type: BLOOD SPECIMENOrdering Facility: [facility] Address: [address] [place] [address] Performed By: #### 6 768-6, 37761-4, ####[facility] LABCLIA [id number] [address] [address] [place] Sodium [Moles/Vol] 142 mmol/L Normal 136-144 [facility] Comment on above: Order Comment: Speci men Type: BLOOD SPECIMENOrdering Facility: [facility] Address: [address] [place] [address] Performed By: #### 6 768-6, 78673-8, 89203-6 ####[facility] LABCLIA [id number] [address] [place] [address] [place] Urea nitrogen [Mass/Vol] 35 mg/dL High 9-24 [facility] Comment on above: Order Comment: Speci men Type: BLOOD SPECIMENOrdering Facility: [facility] Address: [address] [place] [address] Performed By: #### 6 768-6, 54670-2, 09123-4 ####[facility] LABCLIA [id number] [facility] [address] [place] Albumin [Mass/Vol] 4.2 g/dL 3.9 - 4.9 g/dL [facility] ALP [Catalytic activity/Vol] 124 U/L High 38 - 113 U/L [facility] ALT [Catalytic activity/Vol] 40 U/L 10 - 54 U/L [facility] Anion gap [Moles/Vol] 13 mmol/L 8 - 15 mmol/L [facility] AST [Catalytic activity/Vol] 49 U/L High 14 - 40 U/L [facility] Bilirubin [Mass/Vol] 0.7 mg/dL 0.2 - 1 .3 mg/dL [facility] Calcium [Mass/Vol] 9.3 mg/dL 8.5 - 10. 2 mg/dL [facility] Chloride [Moles/Vol] 100 mmol/L 98 - 10 7 mmol/L [facility] CO2 [Moles/Vol] 28 mmol/L 22 - 30 mmol/L [facility] Creatinine [Mass/Vol] 1.13 mg/dL 0.73 - 1.22 mg/dL [facility] GFR/1.73 sq M.predicted among non-blacks MDRD (S/P/Bld) [Vol rate/Area] 69 mL/min/{1.73_m2} - PINF [facility] Comment on above: Estimated Glomerular [...] 104 mg/dL High 74 - 99 mg/dL [facility] Comment on above: The [place] Diabete s Association (ADA) provides guidance for [...] Standards of Medical Care in Diabetes 2016, [place] Diabetes Association. Diabetes Care. 2016.39(Suppl 1). Potassium [Moles/Vol] 3.8 mmol/L 3.7 - 5.1 mmol/L [facility] Protein [Mass/Vol] 7.5 g/dL 6.3 - 8.0 g/dL [facility] Sodium [Moles/Vol] 141 mmol/L 136 - 144 mmol/L [facility] Urea nitrogen [Mass/Vol] 33 mg/dL High 9 - 24 mg/dL [facility] ESR Westergren method (Bld) [Velocity]on 10-15-2024 ESR (Bld) [Velocity] 34 mm/h High [facility] Interpretation and review of laboratory results Abnormal [facility] ESR (Bld) [Velocity] 34 mm/h High 0-15 [facility] Comment on above: Order Comment: Speci men Type: BLOOD SPECIMENOrdering Facility: [facility] Address: [address] [place] [address] Performed By: #### 5 7021-8, 4537-7 ####[facility] LABCLIA [id number] [place] [address] [place] HIGH SENSITIVITY C-REACTIVE PROTEINon 10-15-2024 CRP High sensitivity method [Mass/Vol] 13.2 mg/L High NINF - 3.1 mg/L [facility] Comment on above: hsCRP < [...] for Disease Control and Prevention and the [place] [employer] Association. Circulation 2003;107:499-511. Laboratory - Chemistry and C hemistry - challengeon 10-15-2024 Gamma glutamyl transferase [Catalytic activity/Vol] 136 U/L High 10 - 70 U/L [facility] Magnesium [Mass/Vol] 2.2 mg/dL 1.7 - 2 .3 mg/dL [facility] Magnesium [Mass/Vol]on 10-15 Interpretation and review of laboratory results Normal [facility] No Panel Informationon 10-15 Interpretation and review of laboratory results Abnormal [facility] Interpretation and review of laboratory results Abnormal [facility] Prot/Creat Uron 10-15-2024 Protein/Creatinine (U) [Mass ratio] mg/g High <0.15 [facility] Comment on above: Order Comment: Speci men Type: URINE SPECIMENOrdering Facility: [facility] Address: [address] [place] [address] Result Comment: Adul t Proteinuria Categories:<0.15 mg/mg is considered normal to mildly increased0.15 - 0.50 mg/mg is considered moderately increased>0.50 mg/mg is considered severely increasedKDIGO. (2013). KDIGO 2012 Clinical Practice Guideline for the Evaluation and Management of Chronic Kidney Disease. Official Journal of the International Society of Nephrology, 3(1), 1-150. Performed By: #### 2 890-2 ####[facility] LABCLIA [id number] [place] [address] [place] Protein/Creatinine (U) [Mass ratio]on 10-15-2024 Creatinine (U) [Mass/Vol] 12.6 mg/dL Low 20.0-300.0 [facility] Comment on above: Order Comment: Speci men Type: URINE SPECIMENOrdering Facility: [facility] Address: [address] [place] [address] Performed By: #### 2 890-2 ####[facility] LABCLIA [id number] [place] [address] [place] Protein (U) [Mass/Vol] mg/dL Normal 0-20 [facility] Comment on above: Order Comment: Speci men Type: URINE SPECIMENOrdering Facility: [facility] Address: [address] [place] [address] Performed By: #### 2 890-2 ####[facility] LABCLIA [id number] [place] [address] [place] UA DIP, URINE (POC)on 2024 BILIRUBIN UA (POCT) Negative Negative [facility] CLARITY UA (POCT) Clear [facility] COLOR UA (POCT) Light yellow [facility] GLUCOSE UA (POCT) Negative Negative mg/dL [facility] Hemoglobin Ql (U) Negative Negative [facility] KETONE UA (POCT) Negative Negative mg/dL [facility] LEUKOCYTES UA (POCT) Negative Negative [facility] NITRITE UA (POCT) Negative Negative [facility] PH UA (POCT) 7 4.5 - 8.0 [facility] Protein Ql (U) Negative Negative mg/dL [facility] SPECIFIC GRAVITY UA (POCT) 1.015 1.005 - 1.030 [facility] UROBILINOGEN UA (POCT) 0.2 Jolie l E.U./dL [facility] Location:[facility], [address] [place] [address] POINT OF CARE [facility] CBC panel Auto (Bld)on 10-14 Erythrocyte distribution width (RBC) [Ratio] 15.7 % High 11.5 - 15.0 % [facility] Hematocrit (Bld) [Volume fraction] 39.8 % 39.0 - 51.0 % [facility] Hemoglobin (Bld) [Mass/Vol] 13 g/dL 13.0 - 17.0 g/dL [facility] Interpretation and review of laboratory results Abnormal [facility] MCH (RBC) [Entitic mass] 31.9 pg 26.0 - 34.0 pg [facility] MCHC (RBC) [Mass/Vol] 32.7 g/dL 30.5 - 36.0 g/dL [facility] MCV (RBC) [Entitic vol] 97.5 fL 80.0 - 100.0 fL [facility] Nucleated RBC (Bld) [#/Vol] NINF [facility] Platelet mean volume (Bld) [Entitic vol] 10.9 fL 9.0 - 12.7 fL [facility] Platelets (Bld) [#/Vol] 183 10*3/uL [facility] RBC (Bld) [#/Vol] 4.08 10*6/uL Low 4.20 - 6.0 0 m/uL [facility] WBC (Bld) [#/Vol] 7.85 10*3/uL [facility] Erythrocyte distribution width (RBC) [Ratio] 15.7 % High 11.5-15.0 [facility] Comment on above: Order Comment: Speci men Type: BLOOD SPECIMENOrdering Facility: [facility] Address: [address] [place] [address] Performed By: #### 5 8410-2 ####[facility] LABIA [id number] [place] [address] [place] Hematocrit (Bld) [Volume fraction] 39.8 % Normal 39.0-51.0 [facility] Comment on above: Order Comment: Speci men Type: BLOOD SPECIMENOrdering Facility: [facility] Address: [address] [place] [address] Performed By: #### 5 8410-2 ####[facility] LABIA [id number] [place] [address] [place] Hemoglobin (Bld) [Mass/Vol] 13.0 g/dL Normal 13.0-17.0 [facility] Comment on above: Order Comment: Speci men Type: BLOOD SPECIMENOrdering Facility: [facility] Address: [address] [place] [address] Performed By: #### 5 8410-2 ####[facility] LABIA [id number] [place] [address] [place] MCH (RBC) [Entitic mass] 31.9 pg Normal 26.0-34.0 [facility] Comment on above: Order Comment: Speci men Type: BLOOD SPECIMENOrdering Facility: [facility] Address: [address] [place] [address] Performed By: #### 5 8410-2 ####[facility] LABCLIA [id number] [place] [address] [place] MCHC (RBC) [Mass/Vol] 32.7 g/dL Normal 30.5-36.0 [facility] Comment on above: Order Comment: Speci men Type: BLOOD SPECIMENOrdering Facility: [facility] Address: [address] [place] [address] Performed By: #### 5 8410-2 ####[facility] LABCLIA [id number] [place] [address] [place] MCV (RBC) [Entitic vol] 97.5 fL Normal 80.0-100.0 [facility] Comment on above: Order Comment: Speci men Type: BLOOD SPECIMENOrdering Facility: [facility] Address: [address] [place] [address] Performed By: #### 5 8410-2 ####[facility] LABIA [id number] [place] [address] [place] Nucleated RBC (Bld) [#/Vol] 10*3/uL Normal <0.01 [facility] Comment on above: Order Comment: Speci men Type: BLOOD SPECIMENOrdering Facility: [facility] Address: [address] [place] [address] Performed By: #### 5 8410-2 ####[facility] LABCLIA [id number] [place] [address] [place] Platelet mean volume (Bld) [Entitic vol] 10.9 fL Normal 9.0-12.7 [facility] Comment on above: Order Comment: Speci men Type: BLOOD SPECIMENOrdering Facility: [facility] Address: [address] [place] [address] Performed By: #### 5 8410-2 ####[facility] LABIA [id number] [place] [address] [place] Platelets (Bld) [#/Vol] 183 10*3/uL Normal 150-400 [facility] Comment on above: Order Comment: Speci men Type: BLOOD SPECIMENOrdering Facility: [facility] Address: [address] [place] [address] Performed By: #### 5 8410-2 ####[facility] LABIA [id number] [place] [address] [place] RBC (Bld) [#/Vol] 4.08 10*6/uL Low 4.20-6.[address] [facility] Comment on above: Order Comment: Speci men Type: BLOOD SPECIMENOrdering Facility: [facility] Address: [address] [place] [address] Performed By: #### 5 8410-2 ####[facility] LABIA [id number] [place] [address] [place] WBC (Bld) [#/Vol] 7.85 10*3/uL Normal 3.70-11.[address] [facility] Comment on above: Order Comment: Speci men Type: BLOOD SPECIMENOrdering Facility: [facility] Address: [address] [place] [address] Performed By: #### 5 8410-2 ####[facility] LABIA [id number] [place] [id number] [place] CNOVon 10-14-2024 CNOV Normal [facility] Comprehensive metabolic 2000 panelon 10-14-2024 Albumin [Mass/Vol] 4.2 g/dL Normal 3.9-4.9 [facility] Comment on above: Order Comment: Speci men Type: BLOOD SPECIMENOrdering Facility: [facility] Address: [address] [place] [address] Performed By: #### 2 4323-8, 98723-4, 2323-07 ####[facility] LABCLIA [id number] [place] [id number] [place] ALP [Catalytic activity/Vol] 124 U/L High 38-113 [facility] Comment on above: Order Comment: Speci men Type: BLOOD SPECIMENOrdering Facility: [facility] Address: [address] [place] [address] Performed By: #### 2 4323-8, , 2323-07 ####[facility] LABCLIA [id number] [place] [address] [place] ALT [Catalytic activity/Vol] 40 U/L Normal 10-54 [facility] Comment on above: Order Comment: Speci men Type: BLOOD SPECIMENOrdering Facility: [facility] Address: [address] [place] [address] Performed By: #### 2 432-8, , 2323-07 ####[facility] LABIA [id number] [place] [address] [place] Anion gap [Moles/Vol] 13 mmol/L Normal 8-15 [facility] Comment on above: Order Comment: Speci men Type: BLOOD SPECIMENOrdering Facility: [facility] Address: [address] [place], [place] [address] Performed By: #### 2 4323-8, , 2323-07 ####[facility] LABIA [id number] [address] [address] [place] AST [Catalytic activity/Vol] 49 U/L High 14-40 [facility] Comment on above: Order Comment: Speci men Type: BLOOD SPECIMENOrdering Facility: [facility] Address: [address] [place], [place] [address] Performed By: #### 2 4323-8, , 2323-07 ####[facility] LABCLIA [id number] [address] [address] [place] Bilirubin [Mass/Vol] 0.7 mg/dL Normal 0.2-1.3 [facility] Comment on above: Order Comment: Speci men Type: BLOOD SPECIMENOrdering Facility: [facility] Address: [address] [place], [place] [address] Performed By: #### 2 4322-8, , 2323-07 ####[facility] LABCLIA [id number] [address] [address] [place] Calcium [Mass/Vol] 9.3 mg/dL Normal 8.5-10.2 [facility] Comment on above: Order Comment: Speci men Type: BLOOD SPECIMENOrdering Facility: [facility] Address: [address] [place], [place] [address] Performed By: #### 2 8, , 2323-07 ####[facility] LABCLIA [id number] [address] [address] [place] Chloride [Moles/Vol] 100 mmol/L Normal 98-107 [facility] Comment on above: Order Comment: Speci men Type: BLOOD SPECIMENOrdering Facility: [facility] Address: [address] [place] [address] Performed By: #### 2 4322-8, , 2323-07 ####[facility] LABCLIA [id number] [address] [address] [place] CO2 [Moles/Vol] 28 mmol/L Normal 22-30 [facility] Comment on above: Order Comment: Speci men Type: BLOOD SPECIMENOrdering Facility: [facility] Address: [address] [place] [address] Performed By: #### 2 432-8, , 2323-07 ####[facility] LABCLIA [id number] [address] [address] [place] Creatinine [Mass/Vol] 1.13 mg/dL Normal 0.73-1.22 [facility] Comment on above: Order Comment: Alexandru campos Type: BLOOD SPECIMENOrdering Facility: [facility] Address: [address] [place] [address] Performed By: #### 2 4323-8, , 2323-07 ####[facility] LABIA [id number] [place] [id number] [place] [facility] Creatinine and Glomerular filtration rate.predicted panel (S/P/Bld) 69 mL/min/1.73m??? Normal >=60 [facility] Comment on above: Order Comment: Alexandru campos Type: BLOOD SPECIMENOrdering Facility: [facility] Address: [address] [place] [address] Result Comment: Kristel mated Glomerular Filtration Rate [...] Performed By: #### 2 4323-8, , 2323-07 ####[facility] LABIA [id number] [place] [address] [place] Glucose [Mass/Vol] 104 mg/dL High 74-99 [facility] Comment on above: Order Comment: Alexandru campos Type: BLOOD SPECIMENOrdering Facility: [facility] Address: [address] [place] [address] Result Comment: The [place] Diabetes Association (ADA) provides guidance for cutoff [...] Standards of Medical Care in Diabetes 2016, [place] [employer] Association. Diabetes Care. 2016.39(Suppl 1). Performed By: #### 2 4322-8, , 2323-07 ####[facility] LABCLIA [id number] [address] [address] [place] Potassium [Moles/Vol] 3.8 mmol/L Normal 3.7-5.1 [facility] Comment on above: Order Comment: Speci men Type: BLOOD SPECIMENOrdering Facility: [facility] Address: [address] [place] [address] Performed By: #### 2 8, , 2323-07 ####[facility] LABCLIA [id number] [place] [address] [place] Protein [Mass/Vol] 7.5 g/dL Normal 6.3-8.0 [facility] Comment on above: Order Comment: Speci men Type: BLOOD SPECIMENOrdering Facility: [facility] Address: [address] [place], [place] [address] Performed By: #### 2 8, , 2323-07 ####[facility] LABCLIA [id number] [place] [address] [place] Sodium [Moles/Vol] 141 mmol/L Normal 136-144 [facility] Comment on above: Order Comment: Speci men Type: BLOOD SPECIMENOrdering Facility: [facility] Address: [address] [place] [address] Performed By: #### 2 8, , 2323-07 ####[facility] LABCLIA [id number] [address] [address] [place] Urea nitrogen [Mass/Vol] 33 mg/dL High 9-24 [facility] Comment on above: Order Comment: Alexandru campos Type: BLOOD SPECIMENOrdering Facility: [facility] Address: [address] [place] [address] Performed By: #### 2 4323-8, 48793-7, 4-2 ####[facility] LABCLIA [id number] [place] [address] [place] GGT [facility]Pl[facility]20[facility] Gamma glutamyl transferase [Catalytic activity/Vol] 136 U/L High 10-70 [facility] Comment on above: Order Comment: Alexandru campos Type: BLOOD SPECIMENOrdering Facility: [facility] Address: [address] [place] [address] Performed By: #### 2 4323-8, 63766-7, 2323-2 ####[facility] LABCLIA [id number] [address] [place] LDH Fld[facility] 10-14-2024 LDH (Body fld) [Catalytic activity/Vol] 110 U/L Normal See Comment [facility] Comment on above: Order Comment: Alexandru campos Type: SPECIMEN FROM PLEURA OBTAINED BY THORACENTESISOrdering Facility: [facility] Address: [address] [place] [address] Result Comment: Pleu ral fluids: Pleural fluid [...] document C49A. RAJEEV Bui: Clinical Laboratory Standards Walker: 2007.Reference: 2. Rafael STARK, Fei Doyle. Body [...] 533. Performed By: #### 2 529-6, 2881-1 ####[facility] LABIA [id number] [place] [address] [place] Magnesium [facility]Pl[facility] 10-14 Magnesium [Mass/Vol] 2.2 mg/dL Normal 1.7-2.3 [facility] Comment on above: Order Comment: Speci men Type: BLOOD SPECIMENOrdering Facility: [facility] Address: [address] [place] [address] Performed By: #### 2 4323-8, 85212-2, 2324-2 ####[facility] LABCLIA [id number] [place] [address] [place] OPERATIVE NOon 10-14-2024 OPERATIVE NO Normal [facility] Prot Fld-ncon 10-14-2024 Protein (Body fld) [Mass/Vol] 2.5 g/dL Normal See Comment [facility] Comment on above: Order Comment: Speci men Type: SPECIMEN FROM PLEURA OBTAINED BY THORACENTESISOrdering Facility: [facility] Address: [address] [place] [address] Result Comment: Sero us fluids: Effusions are [...] document C49A. RAJEEV Bui: Clinical Laboratory Standards Walker: 2007. Performed By: #### 2 529-6, 2881-1 ####[facility] LABCLIA [id number] [facility] [place] [address] [place] US Chest limitedon Radiology Study observation (narrative) [facility] XR CHEST 2V FRONTAL/LATon XR CHEST 2V FRONTAL/LAT Normal [facility] XR Chest PA and Lateralon IMPRESSION: 1. [...] any questions regarding this interpretation, please call [phone]. If you are unable to reach us at the number above, please feel free to contact [facility] eRadiology at [phone]. DIVISION OF RADIOLOGY * * *Final Report* [...] any questions regarding this interpretation, please call [phone]. If you are unable to reach us at the number above, please feel free to contact [facility] eRadiology at [phone]. [facility] Radiology Study observation (narrative) [facility] XR Chest PA and LateralOrder ed By: Ccf Provider on 10-13-2024 [facility] CNPNon 10-10-2024 CNPN Normal [facility] BRIEF OP NOTon 10-02-2024 BRIEF OP NOT Normal [facility] CNPNon 10-02-2024 CNPN Normal [facility] ANES POSTPROC EVALon 025 ANES POSTPROC EVAL Normal [facility] ANES PRE-OPon 09-25-2024 ANES PRE-OP Normal [facility] EGD Study observation Narrat iveon 09-25-2024 [facility] Radiology Study observation (narrative) [facility] HISTORY PHYSICALon HISTORY PHYSICAL Normal [facility] NURSING PROGon 09-25-2024 NURSING PROG Normal [facility] NURSING PROG Normal [facility] Pathology biopsy report Abhijit (Tiss)on 09-25-2024 ADDENDUM 1: Normal [facility] Comment on above: Order Comment: Speci men Type: TISSUE SPECIMENOrdering Facility: [facility] Address: [address] [place] [address] Result Comment: Adde ndum is issued to reflect the result of immunohistochemical stain:- Immunostain for H. pylori is negative in part A.Addendum electronically signed by Simba Frias MD, PhD on 10/01/2024 at 1725 EDT Performed By: #### 6 6121-5 ####[facility] LABIA [id number] [place] [address] [place] AP DISCLAIMER Normal [facility] Comment on above: Order Comment: Speci men Type: TISSUE SPECIMENOrdering Facility: [facility] Address: [address] [place] [address] Result Comment: Haley dominguez Developed Test (LDT) Disclaimer:Performance characteristics of immunohistochemical, immunofluorescent, and chromogenic in-situ hybridization tests have been determined by the performing laboratory within [facility]'s [facility] Pathology and Laboratory Medicine Department ([facility], [facility], [facility], [facility], [facility], [facility], or [facility]) in a manner consistent with [...] stain appropriately. Performed By: #### 6 6121-5 ####[facility] LABCLIA [id number] [place] [address] [place] CASE REPORT Normal [facility] Comment on above: Order Comment: Speci men Type: TISSUE SPECIMENOrdering Facility: [facility] Address: [address] [place] [address] Result Comment: [facility] Pathology Report Case: [id number] Provider: Shay Dennis MD Collected: 09/25/2024 11:32 AMOrdering Location: Gastroenterology Received: 09/25/2024 04:32 PMPathologist: Simba Frias MD, PhDSpecimen: Stomach, Biopsy, R/O: H. Pylori Performed By: #### 6 6121-5 ####[facility] LABCLIA [id number] [place] [address] [place] FINAL DIAGNOSIS Normal [facility] Comment on above: Order Comment: Speci men Type: TISSUE SPECIMENOrdering Facility: [facility] Address: [address] [place] [address] Result Comment: A. Grecia martach, biopsy:- Chronic focally active gastritis and reactive gastropathy in antral and oxyntic mucosa.- Negative for intestinal metaplasia or dysplasia.- H. pylori immunostain will be reported as an addendum. at 1344 EDT Performed By: #### 6 6121-5 ####[facility] LABCLIA [id number] [address] [place] FINAL PERFORMING LAB Normal [facility] Comment on above: Order Comment: Speci men Type: TISSUE SPECIMENOrdering Facility: [facility] Address: [address] [place] [address] Result Comment: Diag nostic interpretation performed at: [facility], [address] [place], [place] [address] CLIA# [id number] Director: Ramos Strickland MD Performed By: #### 6 6121-5 ####[facility] LABCLIA [id number] [address] [address] [place] GROSS DESCRIPTION Normal [facility] Comment on above: Order Comment: Speci men Type: TISSUE SPECIMENOrdering Facility: [facility] Address: [address] [place] [address] Result Comment: Yanira. Grecia denson, BiopsyReceived in formalin are multiple pieces of de la garza, soft tissue aggregating to 1.9 x 0.3 x 0.2 cm. Totally submitted in one cassette.Gross examination performed at [facility], [address] [place] [address] September 25, 2024 6:03 PM Performed By: #### 6 6121-5 ####[facility] LABCLIA [id number] [address] OF [facility] Upper GI endoscopyon 025 Upper GI endoscopy Normal [facility] CNPNon 09-23-2024 CNPN Normal [facility] NURSING PROGon 09-18-2024 NURSING PROG Normal [facility] CNPNon 09-14-2024 CNPN Normal [facility] Basic metabolic 2000 panelon 09-11-2024 Anion gap [Moles/Vol] 13 mmol/L Normal 8-15 [facility] Comment on above: Order Comment: Speci men Type: BLOOD SPECIMENOrdering Facility: [facility] Address: [address] [place] [address] Performed By: #### 2 4321-2 ####[facility] LABCLIA [id number] [place] [address] Calcium [Mass/Vol] 9.2 mg/dL Normal 8.5-10.2 [facility] Comment on above: Order Comment: Speci men Type: BLOOD SPECIMENOrdering Facility: [facility] Address: [address] [place] [address] Performed By: #### 2 4321-2 ####[facility] LABCLIA [id number] [place] [address] Chloride [Moles/Vol] 100 mmol/L Normal 98-107 [facility] Comment on above: Order Comment: Speci men Type: BLOOD SPECIMENOrdering Facility: [facility] Address: [address] [place] [address] [place] [address] Performed By: #### 2 4321-2 ####[facility] LABCLIA [id number] [place] [address] CO2 [Moles/Vol] 24 mmol/L Normal 22-30 [facility] Comment on above: Order Comment: Speci men Type: BLOOD SPECIMENOrdering Facility: [facility] Address: [address] [place] [address] Performed By: #### 2 4321-2 ####[facility] LABCLIA [id number] [place] [address] Creatinine [Mass/Vol] 1.71 mg/dL High 0.73-1.22 [facility] Comment on above: Order Comment: Speci men Type: BLOOD SPECIMENOrdering Facility: [facility] Address: [address] [place] [address] Performed By: #### 2 4321-2 ####[facility] LABCLIA [id number] [place] [address] Creatinine and Glomerular filtration rate.predicted panel (S/P/Bld) 42 mL/min/1.73m??? Low >=60 [facility] Comment on above: Order Comment: Speci men Type: BLOOD SPECIMENOrdering Facility: [facility] Address: [address] [place] [address] Result Comment: Kristel mated Glomerular Filtration Rate [...] actual GFR. Performed By: #### 2 4321-2 ####[facility] LABCLIA [id number] [place] [address] Glucose [Mass/Vol] 107 mg/dL High 74-99 [facility] Comment on above: Order Comment: Speci men Type: BLOOD SPECIMENOrdering Facility: [facility] Address: [address] [id number] Result Comment: The [place] Diabetes Association (ADA) provides guidance for cutoff [...] Standards of Medical Care in Diabetes 2016, [place] [employer] Association. Diabetes Care. 2016.39(Suppl 1). Performed By: #### 2 4321-2 ####[facility] LABCLIA [id number] [place] [address] Potassium [Moles/Vol] 4.9 mmol/L Normal 3.7-5.1 [facility] Comment on above: Order Comment: Speci men Type: BLOOD SPECIMENOrdering Facility: [facility] Address: [address] [place] [address] Performed By: #### 2 4321-2 ####[facility] LABCLIA [id number] [place] [address] Sodium [Moles/Vol] 137 mmol/L Normal 136-144 [facility] Comment on above: Order Comment: Speci men Type: BLOOD SPECIMENOrdering Facility: [facility] Address: [address] [place] [address] Performed By: #### 2 4321-2 ####[facility] LABCLIA [id number] [place] [address] Urea nitrogen [Mass/Vol] 53 mg/dL High 9-24 [facility] Comment on above: Order Comment: Speci men Type: BLOOD SPECIMENOrdering Facility: [facility] Address: [address] [place], [place] [address] Performed By: #### 2 4321-2 ####[facility] LABCLIA [id number] [place] [address] CBC panel Auto (Bld)on 09-11 Erythrocyte distribution width (RBC) [Ratio] 15.8 % High 11.5-15.0 [facility] Comment on above: Order Comment: Speci men Type: BLOOD SPECIMENOrdering Facility: [facility] Address: [address] [place] [address] Performed By: #### 5 8410-2 ####[facility] LABCLIA [id number] [place] [address] Hematocrit (Bld) [Volume fraction] 37.8 % Low 39.0-51.0 [facility] Comment on above: Order Comment: Speci men Type: BLOOD SPECIMENOrdering Facility: [facility] Address: [address] [place] [address] Performed By: #### 5 8410-2 ####[facility] LABIA [id number] [place] [address] Hemoglobin (Bld) [Mass/Vol] 12.0 g/dL Low 13.0-17.0 [facility] Comment on above: Order Comment: Speci men Type: BLOOD SPECIMENOrdering Facility: [facility] Address: [address] [place] [address] Performed By: #### 5 8410-2 ####[facility] LABCLIA [id number] [place] [address] MCH (RBC) [Entitic mass] 31.3 pg Normal 26.0-34.0 [facility] Comment on above: Order Comment: Speci men Type: BLOOD SPECIMENOrdering Facility: [facility] Address: [address] [place] [address] Performed By: #### 5 8410-2 ####[facility] LABCLIA [id number] [place] [address] MCHC (RBC) [Mass/Vol] 31.7 g/dL Normal 30.5-36.0 [facility] Comment on above: Order Comment: Speci men Type: BLOOD SPECIMENOrdering Facility: [facility] Address: [address] [place] [address] Performed By: #### 5 8410-2 ####[facility] LABCLIA [id number] [place] [address] MCV (RBC) [Entitic vol] 98.4 fL Normal 80.0-100.0 [facility] Comment on above: Order Comment: Speci men Type: BLOOD SPECIMENOrdering Facility: [facility] Address: [address] [place] [address] Performed By: #### 5 8410-2 ####[facility] LABCLIA [id number] [place] [address] Nucleated RBC (Bld) [#/Vol] 10*3/uL Normal <0.01 [facility] Comment on above: Order Comment: Speci men Type: BLOOD SPECIMENOrdering Facility: [facility] Address: [address] [place] [address] Performed By: #### 5 8410-2 ####[facility] LABCLIA [id number] [place] [address] Platelet mean volume (Bld) [Entitic vol] 9.9 fL Normal 9.0-12.7 [facility] Comment on above: Order Comment: Speci men Type: BLOOD SPECIMENOrdering Facility: [facility] Address: [address] [place] [address] Performed By: #### 5 8410-2 ####[facility] LABIA [id number] [place] [address] Platelets (Bld) [#/Vol] 250 10*3/uL Normal 150-400 [facility] Comment on above: Order Comment: Speci men Type: BLOOD SPECIMENOrdering Facility: [facility] Address: [address] [place] [address] Performed By: #### 5 8410-2 ####[facility] LABCLIA [id number] [place] [address] RBC (Bld) [#/Vol] 3.84 10*6/uL Low 4.20-6.[address] [facility] Comment on above: Order Comment: Speci men Type: BLOOD SPECIMENOrdering Facility: [facility] Address: [address] [place], [place] [address] Performed By: #### 5 8410-2 ####[facility] LABCLIA [id number] [place] [address] WBC (Bld) [#/Vol] 11.59 10*3/uL High 3.70-11.00 [facility] Comment on above: Order Comment: Speci men Type: BLOOD SPECIMENOrdering Facility: [facility] Address: [address] [place] [address] Performed By: #### 5 8410-2 ####[facility] LABCLIA [id number] [place] [address] CNPNon 09-04-2024 CNPN Normal [facility] OPERATIVE NOon 09-04-2024 OPERATIVE NO Normal [facility] Comprehensive metabolic 2000 panelon 09-03-2024 Albumin [Mass/Vol] 4.1 g/dL Normal 3.9-4.9 [facility] Comment on above: Order Comment: Speci men Type: BLOOD SPECIMENOrdering Facility: [facility] Address: [address] [place], [place] [address] Performed By: #### 1 9123-9, 12039-3 ####[facility] LABCLIA [id number] [place] [address] ALP [Catalytic activity/Vol] 140 U/L High 38-113 [facility] Comment on above: Order Comment: Speci men Type: BLOOD SPECIMENOrdering Facility: [facility] Address: [address] [place] [address] Performed By: #### 1 9123-9, 85912-7 ####[facility] LABCLIA [id number] [place] [address] ALT [Catalytic activity/Vol] 12 U/L Normal 10-54 [facility] Comment on above: Order Comment: Speci men Type: BLOOD SPECIMENOrdering Facility: [facility] Address: [address] [place] [address] Performed By: #### 1 9123-9, 97457-4 ####[facility] LABCLIA [id number] [place] [address] Anion gap [Moles/Vol] 18 mmol/L High 8-15 [facility] Comment on above: Order Comment: Speci men Type: BLOOD SPECIMENOrdering Facility: [facility] Address: [address] [place] [address] Performed By: #### 1 [address]12[address], ####[facility] LABCLIA [id number] [place] [address] AST [Catalytic activity/Vol] 27 U/L Normal 14-40 [facility] Comment on above: Order Comment: Speci men Type: BLOOD SPECIMENOrdering Facility: [facility] Address: [address] [place] [address] Performed By: #### 1 9123-9, 69033-8 ####[facility] LABCLIA [id number] [place] [address] Bilirubin [Mass/Vol] 0.6 mg/dL Normal 0.2-1.3 [facility] Comment on above: Order Comment: Speci men Type: BLOOD SPECIMENOrdering Facility: [facility] Address: [address] [place] [address] Performed By: #### 1 9123-9, 72542-6 ####[facility] LABCLIA [id number] [place] [address] Calcium [Mass/Vol] 9.1 mg/dL Normal 8.5-10.2 [facility] Comment on above: Order Comment: Speci men Type: BLOOD SPECIMENOrdering Facility: [facility] Address: [address] [place] [address] Performed By: #### 1 9123-9, 72671-4 ####[facility] LABCLIA [id number] [place] [address] Chloride [Moles/Vol] 96 mmol/L Low 98-107 [facility] Comment on above: Order Comment: Speci men Type: BLOOD SPECIMENOrdering Facility: [facility] Address: [address] [place] [address] Performed By: #### 1 9123-9, 55778-7 ####[facility] LABCLIA [id number] [place] [address] CO2 [Moles/Vol] 28 mmol/L Normal 22-30 [facility] Comment on above: Order Comment: Speci men Type: BLOOD SPECIMENOrdering Facility: [facility] Address: [address] [place] [address] Performed By: #### 1 9123-9, 64701-9 ####[facility] LABCLIA [id number] [place] [address] Creatinine [Mass/Vol] 1.72 mg/dL High 0.73-1.22 [facility] Comment on above: Order Comment: Speci men Type: BLOOD SPECIMENOrdering Facility: [facility] Address: [address] [place] [address] Performed By: #### 1 9123-9, 37419-2 ####[facility] LABCLIA [id number] [place] [address] Creatinine and Glomerular filtration rate.predicted panel (S/P/Bld) 41 mL/min/1.73m??? Low >=60 [facility] Comment on above: Order Comment: Speci men Type: BLOOD SPECIMENOrdering Facility: [facility] Address: [address] [place] [address] Result Comment: Kristel mated Glomerular Filtration Rate [...] actual GFR. Performed By: #### 1 9123-9, 07109-6 ####[facility] LABCLIA [id number] [place] [address] Glucose [Mass/Vol] 189 mg/dL High 74-99 [facility] Comment on above: Order Comment: Alexandru campos Type: BLOOD SPECIMENOrdering Facility: [facility] Address: [address] [place] [address] Result Comment: The [place] Diabetes Association (ADA) provides guidance for cutoff [...] Standards of Medical Care in Diabetes 2016, [place] [employer]. Diabetes Care. 2016.39(Suppl 1). Performed By: #### 1 9123-9, 84903-1 ####[facility] LABCLIA [id number] [place] [address] Potassium [Moles/Vol] 3.1 mmol/L Low 3.7-5.1 [facility] Comment on above: Order Comment: Alexandru campos Type: BLOOD SPECIMENOrdering Facility: [facility] Address: [address] [id number] Performed By: #### 1 9123-9, 37915-1 ####[facility] LABCLIA [id number] [place] [address] Protein [Mass/Vol] 7.4 g/dL Normal 6.3-8.0 [facility] Comment on above: Order Comment: Speci men Type: BLOOD SPECIMENOrdering Facility: [facility] Address: [address] [place] [address] Performed By: #### 1 9123-9, 88879-0 ####[facility] LABCLIA [id number] [place] [address] Sodium [Moles/Vol] 142 mmol/L Normal 136-144 [facility] Comment on above: Order Comment: Speci men Type: BLOOD SPECIMENOrdering Facility: [facility] Address: [address] [place] [address] Performed By: #### 1 9123-9, 06473-9 ####[facility] LABCLIA [id number] [place] [address] Urea nitrogen [Mass/Vol] 45 mg/dL High 9-24 [facility] Comment on above: Order Comment: Speci men Type: BLOOD SPECIMENOrdering Facility: [facility] Address: [address] [place] [address] Performed By: #### 1 9123-9, 21325-1 ####[facility] LABCLIA [id number] [place] [address] Laboratory - Chemistry and C hemistry - challengeon 09-03-2024 Albumin [Mass/Vol] 4.1 g/dL 3.9-4.9 [facility] ALP [Catalytic activity/Vol] 140 U/L High 38-113 [facility] ALT [Catalytic activity/Vol] 12 U/L 10-54 [facility] AST [Catalytic activity/Vol] 27 U/L 14-40 [facility] Bilirubin [Mass/Vol] 0.6 mg/dL 0.2-1.3 [facility] Calcium [Mass/Vol] 9.1 mg/dL 8.5-10.2 [facility] Chloride [Moles/Vol] 96 mmol/L Low 98-107 [facility] CO2 [Moles/Vol] 28 mmol/L 22-30 [facility] Creatinine [Mass/Vol] 1.72 mg/dL High 0.73-1.22 [facility] Glucose [Mass/Vol] 189 mg/dL High 74-99 [facility] Comment on above: The [place] Diabete s Association (ADA) provides guidance for [...] Standards of Medical Care in Diabetes 2016, [place] Diabetes Association. Diabetes Care. 2016.39(Suppl 1). Magnesium [Mass/Vol] 2.2 mg/dL 1.7-2.3 [facility] Potassium [Moles/Vol] 3.1 mmol/L Low 3.7-5.1 [facility] Sodium [Moles/Vol] 142 mmol/L 136-144 [facility] Urea nitrogen [Mass/Vol] 45 mg/dL High 9-24 [facility] Magnesium SerPl-mCncon 09-03 Magnesium [Mass/Vol] 2.2 mg/dL Normal 1.7-2.3 [facility] Comment on above: Order Comment: Speci men Type: BLOOD SPECIMENOrdering Facility: [facility] Address: [address] [place] [address] Performed By: #### 1 9123-9, 07796-4 ####[facility] LABCLIA [id number] [place] [address] No Panel Informationon 09-03 Estimated GFR (CKD-EPI) 41 mL/min/1.73m??? Low >=60 [facility] Comment on above: Estimated Glomerular Filtration Rate [...] [Mass/volume ] in Serum or Plasma 6.3-8.0 [facility] Serum or plasma anion gap de terminationon 09-03-2024 Anion gap [Moles/Vol] Serum or plasma an ion gap determination High 8-15 [facility] CNPNon 09-02-2024 CNPN Normal [facility] Basophils Auto (Bld) [#/Vol] on 08-31-2024 Basophils (Bld) [#/Vol] Automated basophil count 0.0-0.1 [facility] Basophils/100 WBC Auto (Bld) on 08-31-2024 Basophils/100 WBC (Bld) Automated basophil % 0.2-2.0 [facility] Eosinophils/100 WBC Auto (Bl d)on 08-31-2024 Eosinophils/100 WBC (Bld) Automated eosinophil % Low 0.9-7.0 [facility] Erythrocyte distribution wid th Auto (RBC) [Ratio]on 08-31-2024 Erythrocyte distribution width (RBC) [Ratio] Erythrocyte distribution width [Ratio] by Automated count High 11.0-15.0 [facility] Estimated glomerular filtrat ion rate (GFR) non- Americanon 08-31-2024 GFR/1.73 sq M.predicted among non-blacks MDRD (S/P/Bld) [Vol rate/Area] Estimated glomerular filtration rate (GFR) non- Low >=60 mL/min/1.73 m 2 [facility] Globulin Calc (S) [Mass/Vol] on 08-31-2024 Globulin (S) [Mass/Vol] Serum globulin measurement by calculation (mass/volume) [facility] Hematocrit Auto (Bld) [Volum e fraction]on 03-17-2025 Hematocrit (Bld) [Volume fraction] Hematocrit [Volume Fraction] of Blood by Automated count Low 42.0-54.0 [facility] Hemoglobin [Mass/volume] in Bloodon 08-31-2024 Hemoglobin (Bld) [Mass/Vol] Hemoglobin [Mass/volume] in Blood Low 14.0-18.0 [facility] Laboratory - Chemistry and C hemistry - challengeon 08-31-2024 Potassium [Moles/Vol] 3.4 mmol/L Low 3.5-5.1 [facility] Albumin [Mass/Vol] 3.3 g/dL Low 3.4-5.0 [facility] ALP [Catalytic activity/Vol] 130 U/L High 46-116 [facility] ALT [Catalytic activity/Vol] 13 U/L Low 16-63 [facility] AST [Catalytic activity/Vol] 25 U/L 15-37 [facility] Bilirubin [Mass/Vol] 0.7 mg/dL 0.2-1.0 [facility] Calcium [Mass/Vol] 9.0 mg/dL 8.5-10.1 [facility] Chloride [Moles/Vol] 101 mmol/L 98-107 [facility] CO2 [Moles/Vol] 34.5 mmol/L High 21.0-32.0 [facility] Creatinine [Mass/Vol] 1.68 mg/dL High 0.70-1.30 [facility] GFR/1.73 sq M.predicted MDRD (S/P/Bld) [Vol rate/Area] 49 mL/min/{1.73_m2} Low >=60 mL/min/1.73 m 2 [facility] Glucose [Mass/Vol] 113 mg/dL High 74-106 [facility] Magnesium [Mass/Vol] 2.2 mg/dL 1.8-2.4 [facility] Protein [Mass/Vol] 7.7 g/dL 6.4-8.2 [facility] Sodium [Moles/Vol] 143 mmol/L 136-145 [facility] Urea nitrogen [Mass/Vol] 48.0 mg/dL High 7.0-18.0 [facility] Urea nitrogen/Creatinine [Mass ratio] 28.6 mg/mg [facility] Laboratory - Hematology and Cell countson 08-31-2024 Immature granulocytes/100 WBC (Bld) 0.5 % 0.0-0.5 [facility] Leukocytes [#/volume] correc prerna for nucleated erythrocytes in Blood by Automated counon 08-31-2024 WBC corrected for nucl RBC Auto (Bld) [#/Vol] Leukocytes [#/volume] corrected for nucleated erythrocytes in Blood by Automated coun 4.0-11.0 [facility] Lymphocytes Auto (Bld) [#/Vo l]on 08-31-2024 Lymphocytes (Bld) [#/Vol] Lymphocytes [#/volume] in Blood by Automated count Low 1.2-3.8 [facility] Lymphocytes/100 WBC Auto (Bl d)on 08-31-2024 Lymphocytes/100 WBC (Bld) Lymphocytes/100 leukocytes in Blood by Automated count Low 20.5-60.0 [facility] MCH Auto (RBC) [Entitic mass ]on 08-31-2024 MCH (RBC) [Entitic mass] MCH [Entitic mass] by Automated count 25.9-34.0 [facility] MCHC Auto (RBC) [Mass/Vol]on 08-31-2024 MCHC (RBC) [Mass/Vol] MCHC [Mass/volume] by Automated count 29.9-35.2 [facility] MCV Auto (RBC) [Entitic vol] on 08-31-2024 MCV (RBC) [Entitic vol] MCV [Entitic volume] by Automated count High 80.0-94.0 [facility] Monocytes Auto (Bld) [#/Vol] on 08-31-2024 Monocytes (Bld) [#/Vol] Automated blood monocyte count High 0.3-0.8 [facility] Monocytes/100 WBC Auto (Bld) on 08-31-2024 Monocytes/100 WBC (Bld) Automated monocyte % High 1.7-12.0 [facility] Neutrophils Auto (Bld) [#/Vo l]on 08-31-2024 Neutrophils (Bld) [#/Vol] Neutrophils [#/volume] in Blood by Automated count 1.4-6.5 [facility] Neutrophils/100 WBC Auto (Bl d)on 08-31-2024 Neutrophils/100 WBC (Bld) Automated neutrophil % 43.0-75.0 [facility] No Panel Informationon 08-31 Eosinophils # (Auto) 0.0 10 3/uL 0.0-0.7 [facility] Immature Granulocyte # (Auto) 0.03 10 3/uL 0.00-0.03 [facility] Platelet mean volume Auto (B ld) [Entitic vol]on 08-31-2024 Platelet mean volume (Bld) [Entitic vol] Platelet mean volume [Entitic volume] in Blood by Automated count 9.5-13.5 [facility] Platelets Auto (Bld) [#/Vol] on 08-31-2024 Platelets (Bld) [#/Vol] Platelets [#/volume] in Blood by Automated count 150-450 [facility] RBC Auto (Bld) [#/Vol]on RBC (Bld) [#/Vol] Erythrocytes [#/volu me] in Blood by Automated count Low 4.70-6.10 [facility] Serum or plasma albumin/glob ulin mass ratioon 08-31-2024 Albumin/Globulin [Mass ratio] Serum or plasma albumin/globulin mass ratio [facility] Serum or plasma anion gap de terminationon 08-31-2024 Anion gap [Moles/Vol] Serum or plasma an ion gap determination [facility] Activated partial thrombopla stin time (aPTT) in platelet poor plasma by coagulation aon 08-30-2024 aPTT Coag (PPP) [Time] Activated partial thromboplastin time (aPTT) in platelet poor plasma by coagulation a 22.3-36.2 [facility] Basophils Auto (Bld) [#/Vol] on 08-30-2024 Basophils (Bld) [#/Vol] Automated basophil count 0.0-0.1 [facility] Basophils/100 WBC Auto (Bld) on 08-30-2024 Basophils/100 WBC (Bld) Automated basophil % 0.2-2.0 [facility] Eosinophils/100 WBC Auto (Bl d)on 03-16-2025 Eosinophils/100 WBC (Bld) Automated eosinophil % Low 0.9-7.0 [facility] Erythrocyte distribution wid th Auto (RBC) [Ratio]on 08-30-2024 Erythrocyte distribution width (RBC) [Ratio] Erythrocyte distribution width [Ratio] by Automated count High 11.0-15.0 [facility] Hematocrit Auto (Bld) [Volum e fraction]on 08-30-2024 Hematocrit (Bld) [Volume fraction] Hematocrit [Volume Fraction] of Blood by Automated count Low 42.0-54.0 [facility] Hemoglobin [Mass/volume] in Bloodon 08-30-2024 Hemoglobin (Bld) [Mass/Vol] Hemoglobin [Mass/volume] in Blood Low 14.0-18.0 [facility] INR in Platelet poor plasma by Coagulation assayon 08-30-2024 INR Coag (PPP) [Relative time] INR in Platelet poor plasma by Coagulation assay [facility] Comment on above: DESIRED INR:2.0-3.0 CONDITIONS NOT LISTED BELOW2.5-3.5 FOR PROSTHETIC HEART VALVE REPLACEMENT2.5-3.5 RECURRENT THROMBOSIS Laboratory - Chemistry and C hemistry - challengeon 08-30-2024 Bilirubin Ql (U) Negative NEGATIVE [facility] Glucose (U) [Mass/Vol] Negative NEGATIVE [facility] Ketones Ql (U) Negative NEGATIVE [facility] pH (U) 6.5 [pH] 5.0-9.0 [facility] Specific gravity (U) [Rel density] <=1.005 Abnormal 1.005-1.025 [facility] Urobilinogen Qn (U) 0.2 {Guido'U}/dL 0.2-1.0 [facility] Natriuretic peptide B (Bld) [Mass/Vol] 239.0 pg/mL <=900.0 [facility] Laboratory - Hematology and Cell countson 08-30-2024 Immature granulocytes/100 WBC (Bld) 0.5 % 0.0-0.5 [facility] Laboratory - Microbiology an d Antimicrobial susceptibilityon 08-30-2024 SARS-CoV-2 (COVID-19) RNA BRYN+probe Ql (Unsp spec) Negative NEGATIVE [facility] Comment on above: This test [...] inform ationon 08-30-2024 Appearance (U) CLEAR CLEAR [facility] Color (U) LT. YELLOW YELLOW [facility] Laboratory - Urinalysison Leukocyte esterase Test strip Ql (U) Negative NEGATIVE [facility] Mucus Ql (Urine sed) NONE SEEN NONE SEEN [facility] Nitrite Ql (U) Negative NEGATIVE [facility] Protein Ql (U) Negative NEG/TRACE [facility] Leukocytes [#/volume] correc prerna for nucleated erythrocytes in Blood by Automated counon 08-30-2024 WBC corrected for nucl RBC Auto (Bld) [#/Vol] Leukocytes [#/volume] corrected for nucleated erythrocytes in Blood by Automated coun 4.0-11.0 [facility] Lymphocytes Auto (Bld) [#/Vo l]on 08-30-2024 Lymphocytes (Bld) [#/Vol] Lymphocytes [#/volume] in Blood by Automated count 1.2-3.8 [facility] Lymphocytes/100 WBC Auto (Bl d)on 08-30-2024 Lymphocytes/100 WBC (Bld) Lymphocytes/100 leukocytes in Blood by Automated count Low 20.5-60.0 [facility] MCH Auto (RBC) [Entitic mass ]on 08-30-2024 MCH (RBC) [Entitic mass] MCH [Entitic mass] by Automated count 25.9-34.0 [facility] MCHC Auto (RBC) [Mass/Vol]on 08-30-2024 MCHC (RBC) [Mass/Vol] MCHC [Mass/volume] by Automated count 29.9-35.2 [facility] MCV Auto (RBC) [Entitic vol] on 08-30-2024 MCV (RBC) [Entitic vol] MCV [Entitic volume] by Automated count High 80.0-94.0 [facility] Monocytes Auto (Bld) [#/Vol] on 08-30-2024 Monocytes (Bld) [#/Vol] Automated blood monocyte count High 0.3-0.8 [facility] Monocytes/100 WBC Auto (Bld) on 08-30-2024 Monocytes/100 WBC (Bld) Automated monocyte % 1.7-12.0 [facility] Neutrophils Auto (Bld) [#/Vo l]on 08-30-2024 Neutrophils (Bld) [#/Vol] Neutrophils [#/volume] in Blood by Automated count 1.4-6.5 [facility] Neutrophils/100 WBC Auto (Bl d)on 08-30-2024 Neutrophils/100 WBC (Bld) Automated neutrophil % 43.0-75.0 [facility] No Panel Informationon 08-30 Urine Bacteria NONE SEEN #/HPF NONE SEEN [facility] Urine Culture Reflexed NO [facility] Urine Occult Blood Negative NEGATIVE [facility] Urine Other Casts NONE SEEN #/LPF NONE SEEN [facility] Urine Other Crystals None Seen #/HPF None Seen [facility] Urine RBC 0-2 #/HPF 0-2 [facility] Urine Squamous Epithelial Cells NONE SEEN #/LPF NONE/RARE [facility] Urine WBC NONE SEEN #/HPF NONE SEEN [facility] Bedside Influenza Type A Antigen Negative [facility] Comment on above: Negative for Flu A p rotein antigen. Infection due to Flu Acannot be ruled out. Flu A antigen in the sample may bebelow the detection limit of the test. Bedside Influenza Type B Antigen Negative [facility] Comment on above: Negative for Flu B p rotein antigen. Infection due to Flu Bcannot be ruled out. Flu B antigen in the sample may bebelow the detection limit of the test. C-Reactive Protein, Quantitative 4.85 mg/dL High <=0.50 [facility] Eosinophils # (Auto) 0.0 10 3/uL 0.0-0.7 [facility] Immature Granulocyte # (Auto) 0.04 10 3/uL High 0.00-0.03 [facility] Troponin I High Sensitivity 10.0 pg/mL 4.0-76.1 [facility] Comment on above: CUT-OFF POINTS [...] volume] in Blood by Automated count 9.5-13.5 [facility] Platelets Auto (Bld) [#/Vol] on 08-30-2024 Platelets (Bld) [#/Vol] Platelets [#/volume] in Blood by Automated count 150-450 [facility] Prothrombin time (PT)on 08-15 PT Coag (PPP) [Time] Prothrombin time (PT) High 9.0- 11.6 [facility] RBC Auto (Bld) [#/Vol]on RBC (Bld) [#/Vol] Erythrocytes [#/volu me] in Blood by Automated count Low 4.70-6.10 [facility] Comprehensive metabolic 2000 panelOrdered By: Solange Delgado on 08-28-2024 Albumin [Mass/Vol] 4 g/dL 3.9 - 4.9 g/dL [facility] ALP [Catalytic activity/Vol] 126 U/L High 38 - 113 U/L [facility] ALT [Catalytic activity/Vol] 10 U/L 10 - 54 U/L [facility] Anion gap [Moles/Vol] 10 mmol/L 8 - 15 mmol/L [facility] AST [Catalytic activity/Vol] 22 U/L 14 - 40 U/L [facility] Bilirubin [Mass/Vol] 0.6 mg/dL 0.2 - 1 .3 mg/dL [facility] Calcium [Mass/Vol] 8.9 mg/dL 8.5 - 10. 2 mg/dL [facility] Chloride [Moles/Vol] 93 mmol/L Low 98 - 10 7 mmol/L [facility] CO2 [Moles/Vol] 33 mmol/L High 22 - 30 mmol/L [facility] Creatinine [Mass/Vol] 1.66 mg/dL High 0.73 - 1.22 mg/dL [facility] GFR/1.73 sq M.predicted among non-blacks MDRD (S/P/Bld) [Vol rate/Area] 43 mL/min/{1.73_m2} Low - PINF [facility] Comment on above: Estimated Glomerular [...] 134 mg/dL High 74 - 99 mg/dL [facility] Comment on above: The [place] Diabete [employer] Association (ADA) provides guidance for [...] Standards of Medical Care in Diabetes 2016, [place] [employer]. Diabetes Care. 2016.39(Suppl 1). Interpretation and review of laboratory results Abnormal [facility] Potassium [Moles/Vol] 2.7 mmol/L Low 3.7 - 5.1 mmol/L [facility] Protein [Mass/Vol] 7.4 g/dL 6.3 - 8.0 g/dL [facility] Sodium [Moles/Vol] 136 mmol/L 136 - 144 mmol/L [facility] Urea nitrogen [Mass/Vol] 40 mg/dL High 9 - 24 mg/dL [facility] Comprehensive metabolic 2000 panelon 08-28-2024 Albumin [Mass/Vol] 4.0 g/dL Normal 3.9-4.9 [facility] Comment on above: Order Comment: Speci men Type: BLOOD SPECIMENOrdering Facility: [facility] Address: [address] [place] [address] Performed By: #### 1 9123-9, 99549-9 ####[facility] LABIA [id number] [place] [address] ALP [Catalytic activity/Vol] 126 U/L High 38-113 [facility] Comment on above: Order Comment: Speci men Type: BLOOD SPECIMENOrdering Facility: [facility] Address: [address] [place] [address] Performed By: #### 1 9123-9, 32722-3 ####[facility] LABCLIA [id number] [place] [address] ALT [Catalytic activity/Vol] 10 U/L Normal 10-54 [facility] Comment on above: Order Comment: Speci men Type: BLOOD SPECIMENOrdering Facility: [facility] Address: [address] [place] [address] Performed By: #### 1 9123-9, 20208-1 ####[facility] LABCLIA [id number] [place] [address] Anion gap [Moles/Vol] 10 mmol/L Normal 8-15 [facility] Comment on above: Order Comment: Speci men Type: BLOOD SPECIMENOrdering Facility: [facility] Address: [address] [place] [address] Performed By: #### 1 9123-9, 83442-0 ####[facility] LABCLIA [id number] [place] [address] AST [Catalytic activity/Vol] 22 U/L Normal 14-40 [facility] Comment on above: Order Comment: Speci men Type: BLOOD SPECIMENOrdering Facility: [facility] Address: [address] [place] [address] Performed By: #### 1 9123-9, 47065-9 ####[facility] LABCLIA [id number] [place] [address] Bilirubin [Mass/Vol] 0.6 mg/dL Normal 0.2-1.3 [facility] Comment on above: Order Comment: Speci men Type: BLOOD SPECIMENOrdering Facility: [facility] Address: [address] [place] [address] Performed By: #### 1 9123-9, ####[facility] LABCLIA [id number] [place] [address] Calcium [Mass/Vol] 8.9 mg/dL Normal 8.5-10.2 [facility] Comment on above: Order Comment: Speci men Type: BLOOD SPECIMENOrdering Facility: [facility] Address: [address] [place] [address] Performed By: #### 1 9123-9, ####[facility] LABCLIA [id number] [place] [address] Chloride [Moles/Vol] 93 mmol/L Low 98-107 [facility] Comment on above: Order Comment: Speci men Type: BLOOD SPECIMENOrdering Facility: [facility] Address: [address] [place] [address] Performed By: #### 1 9123-9, 56133-8 ####[facility] LABCLIA [id number] [place] [address] CO2 [Moles/Vol] 33 mmol/L High 22-30 [facility] Comment on above: Order Comment: Speci men Type: BLOOD SPECIMENOrdering Facility: [facility] Address: [address] [id number] Performed By: #### 1 9123-9, 28985-3 ####[facility] LABCLIA [id number] [place] [address] Creatinine [Mass/Vol] 1.66 mg/dL High 0.73-1.22 [facility] Comment on above: Order Comment: Speci men Type: BLOOD SPECIMENOrdering Facility: [facility] Address: [address] [place] [address] Performed By: #### 1 9123-9, ####[facility] LABCLIA [id number] [place] [address] Creatinine and Glomerular filtration rate.predicted panel (S/P/Bld) 43 mL/min/1.73m??? Low >=60 [facility] Comment on above: Order Comment: Speci men Type: BLOOD SPECIMENOrdering Facility: [facility] Address: [address] [place] [address] Result Comment: Kristel mated Glomerular Filtration Rate [...] actual GFR. Performed By: #### 1 9123-9, 83655-7 ####[facility] LABIA [id number] [place] [address] Glucose [Mass/Vol] 134 mg/dL High 74-99 [facility] Comment on above: Order Comment: Speci men Type: BLOOD SPECIMENOrdering Facility: [facility] Address: [address] [place] [address] Result Comment: The [place] Diabetes Association (ADA) provides guidance for cutoff [...] Standards of Medical Care in Diabetes 2016, [place] [employer]. Diabetes Care. 2016.39(Suppl 1). Performed By: #### 1 9123-9, ####[facility] LABCLIA [id number] [place] [address] Potassium [Moles/Vol] 2.7 mmol/L Low 3.7-5.1 [facility] Comment on above: Order Comment: Speci men Type: BLOOD SPECIMENOrdering Facility: [facility] Address: [address] [place] [address] Performed By: #### 1 239, ####[facility] LABIA [id number] [place] [address] Protein [Mass/Vol] 7.4 g/dL Normal 6.3-8.0 [facility] Comment on above: Order Comment: Speci men Type: BLOOD SPECIMENOrdering Facility: [facility] Address: [address] [place], [place] [address] Performed By: #### 1 9123-9, ####[facility] LABCLIA [id number] [place] [address] Sodium [Moles/Vol] 136 mmol/L Normal 136-144 [facility] Comment on above: Order Comment: Speci men Type: BLOOD SPECIMENOrdering Facility: [facility] Address: [address] [place], [place] [address] Performed By: #### 1 91239, ####[facility] LABCLIA [id number] [place] [address] Urea nitrogen [Mass/Vol] 40 mg/dL High 9-24 [facility] Comment on above: Order Comment: Speci men Type: BLOOD SPECIMENOrdering Facility: [facility] Address: [address] [place] [id number] Performed By: #### 1 9123-9, 05491-1 ####[facility] LABCLIA [id number] [place] [address] Laboratory - Chemistry and C hemistry - challengeon 08-28-2024 Albumin [Mass/Vol] 4.0 g/dL 3.9-4.9 [facility] ALP [Catalytic activity/Vol] 126 U/L High 38-113 [facility] ALT [Catalytic activity/Vol] 10 U/L 10-54 [facility] AST [Catalytic activity/Vol] 22 U/L 14-40 [facility] Bilirubin [Mass/Vol] 0.6 mg/dL 0.2-1.3 [facility] Calcium [Mass/Vol] 8.9 mg/dL 8.5-10.2 [facility] Chloride [Moles/Vol] 93 mmol/L Low 98-107 [facility] CO2 [Moles/Vol] 33 mmol/L High 22-30 [facility] Creatinine [Mass/Vol] 1.66 mg/dL High 0.73-1.22 [facility] Glucose [Mass/Vol] 134 mg/dL High 74-99 [facility] Comment on above: The [place] Diabete s Association (ADA) provides guidance for [...] Standards of Medical Care in Diabetes 2016, [place] Diabetes [employer]. Diabetes Care. 2016.39(Suppl 1). Magnesium [Mass/Vol] 2.4 mg/dL High 1.7-2.3 [facility] Potassium [Moles/Vol] 2.7 mmol/L Low 3.7-5.1 [facility] Sodium [Moles/Vol] 136 mmol/L 136-144 [facility] TSH Qn 2.030 m[IU]/L 0.270-4.200 [facility] Urea nitrogen [Mass/Vol] 40 mg/dL High 9-24 [facility] MAGNESIUMon 08-28-2024 Magnesium [Mass/Vol] 2.4 mg/dL High 1.7 - 2 .3 mg/dL [facility] Magnesium SerPl-mCncon 08-28 Magnesium [Mass/Vol] 2.4 mg/dL High 1.7-2.3 [facility] Comment on above: Order Comment: Speci men Type: BLOOD SPECIMENOrdering Facility: [facility] Address: [address] [place] [address] Performed By: #### 1 9123-9, 54874-3 ####[facility] LABCLIA [id number] [place] [address] Magnesium [Mass/Vol]on 08-28 Interpretation and review of laboratory results Abnormal [facility] No Panel Informationon 08-28 Estimated GFR (CKD-EPI) 43 mL/min/1.73m??? Low >=60 [facility] Comment on above: Estimated Glomerular Filtration Rate [...] [Mass/volume ] in Serum or Plasma 6.3-8.0 [facility] Serum or plasma anion gap de terminationon 08-28-2024 Anion gap [Moles/Vol] Serum or plasma an ion gap determination 8-15 [facility] TSH SerPl-aCncon 03-14-2025 TSH Qn 2.030 m[IU]/L Normal 0.270-4.200 [facility] Comment on above: Order Comment: Speci men Type: BLOOD SPECIMENOrdering Facility: [facility] Address: [address] [place] [address] Performed By: #### 3 016-3 ####[facility] LABCLIA [id number] [place] [id number] [place] No Panel Informationon 08-27 [facility] metabolic 2000 panelon 08-24-2024 Albumin [Mass/Vol] 4.1 g/dL Normal 3.9-4.9 [facility] Comment on above: Order Comment: Speci men Type: BLOOD SPECIMENOrdering Facility: [facility] Address: [address] [place] [address] Performed By: #### 1 9123-9, 3016-3, 13876-3 ####[facility] LABCLIA [id number] [place] [id number] [place] ALP [Catalytic activity/Vol] 137 U/L High 38-113 [facility] Comment on above: Order Comment: Speci men Type: BLOOD SPECIMENOrdering Facility: [facility] Address: [address] [place] [address] Performed By: #### 1 9123-9, 3016-3, 80051-1 ####[facility] LABCLIA [id number] [place] [id number] [place] ALT [Catalytic activity/Vol] 17 U/L Normal 10-54 [facility] Comment on above: Order Comment: Speci men Type: BLOOD SPECIMENOrdering Facility: [facility] Address: [address] [place] [address] Performed By: #### 1 9123-9, 3016-3, 23389-3 ####[facility] LABCLIA [id number] [address] [address] [place] Anion gap [Moles/Vol] 13 mmol/L Normal 8-15 [facility] Comment on above: Order Comment: Speci men Type: BLOOD SPECIMENOrdering Facility: [facility] Address: [address] [place], [place] [address] Performed By: #### 1 9123-9, 3016-3, 34736-0 ####[facility] LABCLIA [id number] [address] [address] [place] AST [Catalytic activity/Vol] 32 U/L Normal 14-40 [facility] Comment on above: Order Comment: Speci men Type: BLOOD SPECIMENOrdering Facility: [facility] Address: [address] [place] [address] Performed By: #### 1 9123-9, 3015-3, 31703-5 ####[facility] LABCLIA [id number] [place] [address] [place] Bilirubin [Mass/Vol] 0.7 mg/dL Normal 0.2-1.3 [facility] Comment on above: Order Comment: Speci men Type: BLOOD SPECIMENOrdering Facility: [facility] Address: [address] [place] [address] Performed By: #### 1 9123-9, 3, 43715-0 ####[facility] LABCLIA [id number] [place] [address] [place] Calcium [Mass/Vol] 9.5 mg/dL Normal 8.5-10.2 [facility] Comment on above: Order Comment: Speci men Type: BLOOD SPECIMENOrdering Facility: [facility] Address: [address] [place], [place] [address] Performed By: #### 1 9123-9, 3, 40430-8 ####[facility] LABCLIA [id number] [address] [address] [place] Chloride [Moles/Vol] 93 mmol/L Low 98-107 [facility] Comment on above: Order Comment: Speci men Type: BLOOD SPECIMENOrdering Facility: [facility] Address: [address] [place] [address] Performed By: #### 1 9123-9, 3, 92481-2 ####[facility] LABCLIA [id number] [address] [address] [place] CO2 [Moles/Vol] 31 mmol/L High 22-30 [facility] Comment on above: Order Comment: Speci men Type: BLOOD SPECIMENOrdering Facility: [facility] Address: [address] [place] [address] Performed By: #### 1 9123-9, 3, ####[facility] LABCLIA [id number] [address] [address] [place] Creatinine [Mass/Vol] 1.61 mg/dL High 0.73-1.22 [facility] Comment on above: Order Comment: Speci men Type: BLOOD SPECIMENOrdering Facility: [facility] Address: [address] [place] [address] Performed By: #### 1 9123-9, 3, ####[facility] LABCLIA [id number] [address] [address] [place] Creatinine and Glomerular filtration rate.predicted panel (S/P/Bld) 45 mL/min/1.73m??? Low >=60 [facility] Comment on above: Order Comment: Speci men Type: BLOOD SPECIMENOrdering Facility: [facility] Address: [address] [place] [address] Result Comment: Kristel mated Glomerular Filtration Rate [...] GFR. Performed By: #### 1 9123-9, 3, ####[facility] LABCLIA [id number] [address] [address] [place] Glucose [Mass/Vol] 99 mg/dL Normal 74-99 [facility] Comment on above: Order Comment: Speci men Type: BLOOD SPECIMENOrdering Facility: [facility] Address: [address] [place] [address] Result Comment: The [place] Diabetes Association (ADA) provides guidance for cutoff [...] Standards of Medical Care in Diabetes 2016, [place] [employer]. Diabetes Care. 2016.39(Suppl 1). Performed By: #### 1 9123-9, 3015-08, ####[facility] LABIA [id number] [facility] [address] [address] [place] Potassium [Moles/Vol] 2.9 mmol/L Low 3.7-5.1 [facility] Comment on above: Order Comment: Speci men Type: BLOOD SPECIMENOrdering Facility: [facility] Address: [address] [id number] Performed By: #### 1 9123-9, 3015-08, ####[facility] LABIA [id number] [address] [address] [place] Protein [Mass/Vol] 8.0 g/dL Normal 6.3-8.0 [facility] Comment on above: Order Comment: Speci men Type: BLOOD SPECIMENOrdering Facility: [facility] Address: [address] [place] [address] Performed By: #### 1 9123-9, 3016-3, 42589-4 ####[facility] LABCLIA [id number] [place] [address] [place] Sodium [Moles/Vol] 137 mmol/L Normal 136-144 [facility] Comment on above: Order Comment: Speci men Type: BLOOD SPECIMENOrdering Facility: [facility] Address: [address] [place] [address] Performed By: #### 1 9123-9, 3016-3, 76343-7 ####[facility] LABCLIA [id number] [place] [address] [place] Urea nitrogen [Mass/Vol] 30 mg/dL High 9-24 [facility] Comment on above: Order Comment: Speci men Type: BLOOD SPECIMENOrdering Facility: [facility] Address: [address] [place] [address] Performed By: #### 1 9123-9, 3016-3, 80663-7 ####[facility] LABCLIA [id number] [place] [address] [place] Laboratory - Chemistry and C hemistry - challengeon 08-24-2024 Albumin [Mass/Vol] 4.1 g/dL 3.9-4.9 [facility] ALP [Catalytic activity/Vol] 137 U/L High 38-113 [facility] ALT [Catalytic activity/Vol] 17 U/L 10-54 [facility] AST [Catalytic activity/Vol] 32 U/L 14-40 [facility] Bilirubin [Mass/Vol] 0.7 mg/dL 0.2-1.3 [facility] Calcium [Mass/Vol] 9.5 mg/dL 8.5-10.2 [facility] Chloride [Moles/Vol] 93 mmol/L Low 98-107 [facility] CO2 [Moles/Vol] 31 mmol/L High 22-30 [facility] Creatinine [Mass/Vol] 1.61 mg/dL High 0.73-1.22 [facility] Glucose [Mass/Vol] 99 mg/dL 74-99 [facility] Comment on above: The [place] Diabete s Association (ADA) provides guidance for [...] Standards of Medical Care in Diabetes 2016, [place] [employer]. Diabetes Care. 2016.39(Suppl 1). Magnesium [Mass/Vol] 2.4 mg/dL High 1.7-2.3 [facility] Potassium [Moles/Vol] 2.9 mmol/L Low 3.7-5.1 [facility] Sodium [Moles/Vol] 137 mmol/L 136-144 [facility] TSH Qn 2.980 m[IU]/L 0.270-4.200 [facility] Urea nitrogen [Mass/Vol] 30 mg/dL High 9-24 [facility] Magnesium SerPl-mCncon 08-24 Magnesium [Mass/Vol] 2.4 mg/dL High 1.7-2.3 [facility] Comment on above: Order Comment: Speci men Type: BLOOD SPECIMENOrdering Facility: [facility] Address: [address] [place] [address] Performed By: #### 1 9123-9, 3016-3, 00667-2 ####[facility] LABCLIA [id number] [place] [address] [place] No Panel Informationon 08-24 Estimated GFR (CKD-EPI) 45 mL/min/1.73m??? Low >=60 [facility] Comment on above: Estimated Glomerular Filtration Rate [...] [Mass/volume ] in Serum or Plasma 6.3-8.0 [facility] Serum or plasma anion gap de terminationon 08-24-2024 Anion gap [Moles/Vol] Serum or plasma an ion gap determination 8-15 [facility] TSH SerPl-aCncon 08-24-2024 TSH Qn 2.980 m[IU]/L Normal 0.270-4.200 [facility] Comment on above: Order Comment: Speci men Type: BLOOD SPECIMENOrdering Facility: [facility] Address: [address] [place] [address] Performed By: #### 1 9123-9, 3016-3, 72573-8 ####[facility] LABCLIA [id number] [place] [address] [place] CNPNon 08-21-2024 CNPN Normal [facility] CNOVon 08-18-2024 CNOV Normal [facility] Optical coherence tomography study reporton 08-14-2024 [facility] No Panel Informationon 08-13 IMPRESSION: Small, layering right-sided pleural effusion, stable in size from prior study of 07/20/2024. 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: PSCB Transcribe Date/Time: Aug 13 2024 10:27A Dictated by : NOLBERTO SMITH MD This examination was interpreted and the report reviewed and electronically signed by: NOLBERTO SMITH MD on Aug 13 2024 10:32AM [facility] DIVISION OF RADIOLOGY Radiology Study observation (narrative) [facility] No Panel InformationOrdered By: Ccf Provider on 08-13-2024 [facility] XR CHEST 1V DECUBITUS RTon 0 08-13-2024 XR CHEST 1V DECUBITUS RT Normal [facility] XR CHEST 2V FRONTAL/LATon XR CHEST 2V FRONTAL/LAT Normal [facility] XR Chest AP right lateral-de cubituson 08-13-2024 [...] is again noted. DIVISION OF RADIOLOGY Provider, [facility] - 08/13/2024 * * *Final Report* * [...] in size from prior study of 07/20/2024. 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: PSCAc Transcribe Date/Time: Aug 13 2024 10:27A Dictated by : NOLBERTO SMITH MD This examination was interpreted and the report reviewed and electronically signed by: NOLBERTO SMITH MD on Aug 13 2024 10:32AM EST [facility] XR Chest PA and Lateralon [...] is again noted. DIVISION OF RADIOLOGY Provider, [facility] - 08/13/2024 * * *Final Report* * [...] in size from prior study of 07/20/2024. 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: ALONSO Transcribe Date/Time: Aug 13 2024 10:27A Dictated by : NOLBERTO SMITH MD This examination was interpreted and the report reviewed and electronically signed by: NOLBERTO SMITH MD on Aug 13 2024 10:32AM [facility] Normal [facility] Optical coherence tomography study reporton 08-12-2024 Radiology Study observation (narrative) [facility] 08-10-2024 [facility] Normal [facility] 08-04-2024 [facility] Normal [facility] 08-03-2024 [facility] 25(OH)D3 [facility] 25-hydroxyvitamin D3 [Mass/Vol] 49.2 ng/mL Normal 31.0-80.0 [facility] Comment on above: Order Comment: Speci men Type: BLOOD SPECIMENOrdering Facility: [facility] Address: [address] [place] [address] Result Comment: Clas sification of 25 [place] Vitamin D status:Deficiency/Insufficiency: < or = 30 ng/ml.Sufficiency/Optimal Levels: 31-80 ng/mLToxicity: > 100 ng/mL.Test performed by chemiluminescent immunoassay. Performed By: #### 1 989-3 ####[facility] LABCLIA [id number] [address] [place] [address] [place] Basic metabolic 2000 panelon 07-29-2024 Anion gap [Moles/Vol] 7 mmol/L Low 8-15 [facility] Comment on above: Order Comment: Speci men Type: BLOOD SPECIMENOrdering Facility: [facility] Address: [address] [place] [address] Performed By: #### 1 9123-9, 11530-2 ####[facility] LABCLIA [id number] [place] [address] Calcium [Mass/Vol] 8.9 mg/dL Normal 8.5-10.2 [facility] Comment on above: Order Comment: Speci men Type: BLOOD SPECIMENOrdering Facility: [facility] Address: [address] [place] [address] Performed By: #### 1 9123-9, 23967-1 ####[facility] LABIA [id number] [place] [address] Chloride [Moles/Vol] 105 mmol/L Normal 98-107 [facility] Comment on above: Order Comment: Speci men Type: BLOOD SPECIMENOrdering Facility: [facility] Address: [address] [place] [address] Performed By: #### 1 9123-9, 40609-4 ####[facility] LABCLIA [id number] [place] [address] CO2 [Moles/Vol] 27 mmol/L Normal 22-30 [facility] Comment on above: Order Comment: Speci men Type: BLOOD SPECIMENOrdering Facility: [facility] Address: [address] [place], [place] [address] Performed By: #### 1 9123-9, 23971-0 ####[facility] LABCLIA [id number] [place] [address] Creatinine [Mass/Vol] 1.25 mg/dL High 0.73-1.22 [facility] Comment on above: Order Comment: Speci men Type: BLOOD SPECIMENOrdering Facility: [facility] Address: [address] [id number] Performed By: #### 1 9123-9, 42574-2 ####[facility] LABCLIA [id number] [place] [address] Creatinine and Glomerular filtration rate.predicted panel (S/P/Bld) 61 mL/min/1.73m??? Normal >=60 [facility] Comment on above: Order Comment: Alexandru campos Type: BLOOD SPECIMENOrdering Facility: [facility] Address: [address] [place] [address] Result Comment: Kristel mated Glomerular Filtration Rate [...] actual GFR. Performed By: #### 1 9123-9, 76983-7 ####[facility] LABCLIA [id number] [place] [address] Glucose [Mass/Vol] 141 mg/dL High 74-99 [facility] Comment on above: Order Comment: Alexandru beth Type: BLOOD SPECIMENOrdering Facility: [facility] Address: [address] [place] [address] Result Comment: The [place] Diabetes Association (ADA) provides guidance for cutoff [...] Standards of Medical Care in Diabetes 2016, [place] Diabetes Association. Diabetes Care. 2016.39(Suppl 1). Performed By: #### 1 9123-9, 45075-8 ####[facility] LABCLIA [id number] [place] [address] Potassium [Moles/Vol] 4.0 mmol/L Normal 3.7-5.1 [facility] Comment on above: Order Comment: Speci men Type: BLOOD SPECIMENOrdering Facility: [facility] Address: [address] [place] [address] Performed By: #### 1 9123-9, 95971-1 ####[facility] LABCLIA [id number] [place] [address] Sodium [Moles/Vol] 139 mmol/L Normal 136-144 [facility] Comment on above: Order Comment: Speci men Type: BLOOD SPECIMENOrdering Facility: [facility] Address: [address] [place] [address] Performed By: #### 1 9123-9, 00592-1 ####[facility] LABCLIA [id number] [place] [address] Urea nitrogen [Mass/Vol] 27 mg/dL High 9-24 [facility] Comment on above: Order Comment: Speci men Type: BLOOD SPECIMENOrdering Facility: [facility] Address: [address] [place] [address] Performed By: #### 1 9123-9, 41615-1 ####[facility] LABCLIA [id number] [place] [address] CBC panel Auto (Bld)on 07-29 Erythrocyte distribution width (RBC) [Ratio] 16.2 % High 11.5 - 15.0 % [facility] Hematocrit (Bld) [Volume fraction] 34.6 % Low 39.0 - 51.0 % [facility] Hemoglobin (Bld) [Mass/Vol] 11.4 g/dL Low 13.0 - 17.0 g/dL [facility] Interpretation and review of laboratory results Abnormal [facility] MCH (RBC) [Entitic mass] 31.3 pg 26.0 - 34.0 pg [facility] MCHC (RBC) [Mass/Vol] 32.9 g/dL 30.5 - 36.0 g/dL [facility] MCV (RBC) [Entitic vol] 95.1 fL 80.0 - 100.0 fL [facility] Nucleated RBC (Bld) [#/Vol] NINF [facility] Platelet mean volume (Bld) [Entitic vol] 10.1 fL 9.0 - 12.7 fL [facility] Platelets (Bld) [#/Vol] 222 10*3/uL [facility] RBC (Bld) [#/Vol] 3.64 10*6/uL Low 4.20 - 6.0 0 m/uL [facility] WBC (Bld) [#/Vol] 7.62 10*3/uL [facility] Erythrocyte distribution width (RBC) [Ratio] 16.2 % High 11.5-15.0 [facility] Comment on above: Order Comment: Speci men Type: BLOOD SPECIMENOrdering Facility: [facility] Address: [address] [place] [address] Performed By: #### 5 8410-2 ####[facility] LABCLIA [id number] [place] [address] Hematocrit (Bld) [Volume fraction] 34.6 % Low 39.0-51.0 [facility] Comment on above: Order Comment: Speci men Type: BLOOD SPECIMENOrdering Facility: [facility] Address: [address] [place] [address] Performed By: #### 5 8410-2 ####[facility] LABCLIA [id number] [place] [address] Hemoglobin (Bld) [Mass/Vol] 11.4 g/dL Low 13.0-17.0 [facility] Comment on above: Order Comment: Speci men Type: BLOOD SPECIMENOrdering Facility: [facility] Address: [address] [place] [address] Performed By: #### 5 8410-2 ####[facility] LABCLIA [id number] [place] [address] MCH (RBC) [Entitic mass] 31.3 pg Normal 26.0-34.0 [facility] Comment on above: Order Comment: Speci men Type: BLOOD SPECIMENOrdering Facility: [facility] Address: [address] [place] [address] Performed By: #### 5 8410-2 ####[facility] LABIA [id number] [place] [address] MCHC (RBC) [Mass/Vol] 32.9 g/dL Normal 30.5-36.0 [facility] Comment on above: Order Comment: Speci men Type: BLOOD SPECIMENOrdering Facility: [facility] Address: [address] [place] [address] Performed By: #### 5 8410-2 ####[facility] LABIA [id number] [place] [address] MCV (RBC) [Entitic vol] 95.1 fL Normal 80.0-100.0 [facility] Comment on above: Order Comment: Speci men Type: BLOOD SPECIMENOrdering Facility: [facility] Address: [address] [place] [address] Performed By: #### 5 8410-2 ####[facility] LABIA [id number] [place] [address] Nucleated RBC (Bld) [#/Vol] 10*3/uL Normal <0.01 [facility] Comment on above: Order Comment: Speci men Type: BLOOD SPECIMENOrdering Facility: [facility] Address: [address] [place] [address] Performed By: #### 5 8410-2 ####[facility] LABIA [id number] [place] [address] Platelet mean volume (Bld) [Entitic vol] 10.1 fL Normal 9.0-12.7 [facility] Comment on above: Order Comment: Speci men Type: BLOOD SPECIMENOrdering Facility: [facility] Address: [address] [place] [address] Performed By: #### 5 8410-2 ####[facility] LABCLIA [id number] [place] [address] Platelets (Bld) [#/Vol] 222 10*3/uL Normal 150-400 [facility] Comment on above: Order Comment: Speci men Type: BLOOD SPECIMENOrdering Facility: [facility] Address: [address] [place] [address] Performed By: #### 5 8410-2 ####[facility] LABCLIA [id number] [place] [address] RBC (Bld) [#/Vol] 3.64 10*6/uL Low 4.20-6.[address] [facility] Comment on above: Order Comment: Speci men Type: BLOOD SPECIMENOrdering Facility: [facility] Address: [address] [place] [address] Performed By: #### 5 8410-2 ####[facility] LABCLIA [id number] [place] [address] WBC (Bld) [#/Vol] 7.62 10*3/uL Normal 3.70-11.[address] [facility] Comment on above: Order Comment: Speci men Type: BLOOD SPECIMENOrdering Facility: [facility] Address: [address] [place] [address] Performed By: #### 5 8410-2 ####[facility] LABCLIA [id number] [place] [address] Vilma Garcia [birth year] 25 Cortisol [Mass/Vol] 11.1 ug/dL Normal 4.8-19.[address] [facility] Comment on above: Order Comment: Speci men Type: BLOOD SPECIMENOrdering Facility: [facility] Address: [address] [place] [address] Result Comment: Prov ided reference range is from 6-10 AM sample collection time.Cortisol Reference Range: 6-10 AM = 4.8-19.5 ug/dL, 4-8 PM = 2.5-11.9 ug/dL Performed By: #### 2 143-6, 2132-9 ####[facility] LABCLIA [id number] [facility] [place] [address] [place] Erythrocyte distribution wid th Auto (RBC) [Ratio]on 07-29-2024 Erythrocyte distribution width (RBC) [Ratio] Erythrocyte distribution width [Ratio] by Automated count High 11.5-15.0 [facility] Hematocrit Auto (Bld) [Volum e fraction]on 07-29-2024 Hematocrit (Bld) [Volume fraction] Hematocrit [Volume Fraction] of Blood by Automated count Low 39.0-51.0 [facility] Hemoglobin [Mass/volume] in Bloodon 07-29-2024 Hemoglobin (Bld) [Mass/Vol] Hemoglobin [Mass/volume] in Blood Low 13.0-17.0 [facility] Laboratory - Chemistry and C hemistry - challengeon 07-29-2024 Calcium [Mass/Vol] 8.9 mg/dL 8.5-10.2 [facility] Chloride [Moles/Vol] 105 mmol/L 98-107 [facility] CO2 [Moles/Vol] 27 mmol/L 22-30 [facility] Cobalamin (Vitamin B12) [Mass/Vol] 729 pg/mL 232-1245 [facility] Creatinine [Mass/Vol] 1.25 mg/dL High 0.73-1.22 [facility] Glucose [Mass/Vol] 141 mg/dL High 74-99 [facility] Comment on above: The [place] Diabete s Association (ADA) provides guidance for [...] Standards of Medical Care in Diabetes 2016, [place] Diabetes Association. Diabetes Care. 2016.39(Suppl 1). Magnesium [Mass/Vol] 2.0 mg/dL 1.7-2.3 [facility] Potassium [Moles/Vol] 4.0 mmol/L 3.7-5.1 [facility] Sodium [Moles/Vol] 139 mmol/L 136-144 [facility] Urea nitrogen [Mass/Vol] 27 mg/dL High 9-24 [facility] Leukocytes [#/volume] correc prerna for nucleated erythrocytes in Blood by Automated counon 07-29-2024 WBC corrected for nucl RBC Auto (Bld) [#/Vol] Leukocytes [#/volume] corrected for nucleated erythrocytes in Blood by Automated coun 3.70-11.00 [facility] MCH Auto (RBC) [Entitic mass ]on 07-29-2024 MCH (RBC) [Entitic mass] MCH [Entitic mass] by Automated count 26.0-34.0 [facility] MCHC Auto (RBC) [Mass/Vol]on 07-29-2024 MCHC (RBC) [Mass/Vol] MCHC [Mass/volume] by Automated count 30.5-36.0 [facility] MCV Auto (RBC) [Entitic vol] on 07-29-2024 MCV (RBC) [Entitic vol] MCV [Entitic volume] by Automated count 80.0-100.0 [facility] Magnesium SerPl-mCncon 07-29 Magnesium [Mass/Vol] 2.0 mg/dL Normal 1.7-2.3 [facility] Comment on above: Order Comment: Speci men Type: BLOOD SPECIMENOrdering Facility: [facility] Address: [address] [place] [address] Performed By: #### 1 9123-9, 38985-6 ####[facility] LABCLIA [id number] [place] [address] No Panel Informationon 07-29 Estimated GFR (CKD-EPI) 61 mL/min/1.73m??? >=60 [facility] Comment on above: Estimated Glomerular Filtration Rate [...] [#/volume] in Blood by Automated count <0.01 [facility] Platelet mean volume Auto (B ld) [Entitic vol]on 07-29-2024 Platelet mean volume (Bld) [Entitic vol] Platelet mean volume [Entitic volume] in Blood by Automated count 9.0-12.7 [facility] Platelets Auto (Bld) [#/Vol] on 07-29-2024 Platelets (Bld) [#/Vol] Platelets [#/volume] in Blood by Automated count 150-400 [facility] RBC Auto (Bld) [#/Vol]on RBC (Bld) [#/Vol] Erythrocytes [#/volu me] in Blood by Automated count Low 4.20-6.00 [facility] Serum or plasma anion gap de terminationon 07-29-2024 Anion gap [Moles/Vol] Serum or plasma an ion gap determination Low 8-15 [facility] Serum or plasma calcidiol me asurement (mass/volume)on 07-29-2024 25-hydroxyvitamin D3 [Mass/Vol] Serum or plasma calcidiol measurement (mass/volume) 31.0-80.0 [facility] Comment on above: Classification of 25 [place] Vitamin D status: Deficiency/Insufficiency: < or = 30 ng/ml.Sufficiency/Optimal Levels: 31-80 ng/mLToxicity: > 100 ng/mL. Test performed by chemiluminescent immunoassay. Vit B12 SerPl-mCncon 025 Cobalamin (Vitamin B12) [Mass/Vol] 729 pg/mL Normal 232-1245 [facility] Comment on above: Order Comment: Speci men Type: BLOOD SPECIMENOrdering Facility: [facility] Address: [address] [place] [address] Performed By: #### 2 143-6, 2132-9 ####[facility] LABCLIA [id number] [place] [address] [place] US Chest limitedon 5 [facility] ALBUMINon 07-20-2024 Albumin [Mass/Vol] 3.9 g/dL 3.9 - 4.9 g/dL [facility] Albumin (Body fld) [Mass/Vol ]on 07-20-2024 Fluid Nom (Body fld) Pleural Cavity, Right Normal [facility] Comment on above: Order Comment: Speci men Type: SPECIMEN FROM PLEURA OBTAINED BY THORACENTESISOrdering Facility: [facility] Address: [address] [place] [address] Result Comment: recu rrent pleual effusion on right Performed By: #### 2 529-6, 2881-1, 1747-5 ####[facility] LABCLIA [id number] [place] [address] [place] Albumin Fld-mCncon 5 Albumin (Body fld) [Mass/Vol] 1.4 g/dL Normal See Comment [facility] Comment on above: Order Comment: Speci men Type: SPECIMEN FROM PLEURA OBTAINED BY THORACENTESISOrdering Facility: [facility] Address: [address] [place] [address] Result Comment: Body Fluid Albumin may be [...] document C49A. RAJEEV Bui: Clinical Laboratory Standards Walker: 2007.2. Dionicio SERNA. Serum to ascites albumin gradient. To. 2014. Accessed on September 28, 2015. Performed By: #### 2 529-6, 2881-1, 1747-5 ####[facility] LABCLIA [id number] [place] [address] [place] Albumin SerPl-mCncon 025 Albumin [Mass/Vol] 3.9 g/dL Normal 3.9-4.9 [facility] Comment on above: Order Comment: Speci men Type: BLOOD SPECIMENOrdering Facility: [facility] Address: [address] [place] [address] Performed By: #### 1 751-7, 2885-2 ####[facility] LABCLIA [id number] [place] [address] [place] CNOVon 07-20-2024 CNOV Normal [facility] LACTATE DEHYDROGENASEon LDH [Catalytic activity/Vol] 293 U/L High 135 - 225 U/L [facility] Comment on above: Hemolysis present. [...] [Catalytic activity/Vol] 167 U/L Normal See Comment [facility] Comment on above: Order Comment: Speci men Type: SPECIMEN FROM PLEURA OBTAINED BY THORACENTESISOrdering Facility: [facility] Address: [address] [place] [address] Result Comment: Pleu ral fluids: Pleural fluid [...] document C49A. RAJEEV Bui: Clinical Laboratory Standards Walker: 2007.Reference: 2. Rafael STARK, Fei Doyle. Body [...] Performed By: #### 2 529-6, 2881-1, 1747-5 ####[facility] LABCLIA [id number] [place] [address] [place] LDH SerPl-cCncon 07-20-2024 LDH [Catalytic activity/Vol] 293 U/L High 135-225 [facility] Comment on above: Order Comment: Speci men Type: BLOOD SPECIMENOrdering Facility: [facility] Address: [address] [place] [address] Result Comment: Hemo lysis present. The origin of the hemolysis, in vitro versus an in vivo hemolytic process, cannot be distinguished via this assay alone. In vitro hemolysis may lead to non-physiological (spurious) elevation in lactate dehydrogenase (LDH) results. Theresult should be interpreted in context of the clinical setting and other test results. Suggest reorder as clinically indicated. Performed By: #### 2 532-0 ####[facility] LABCLIA [id number] [place] [address] [place] LDH [Catalytic activity/Vol] on 07-20-2024 Interpretation and review of laboratory results Abnormal [facility] Laboratory - Chemistry and C hemistry - challengeon 02-03-2025 Albumin [Mass/Vol] 3.9 g/dL 3.9-4.9 [facility] LDH [Catalytic activity/Vol] 293 U/L High 135-225 [facility] Comment on above: Hemolysis present. T he [...] results Normal [facility] PROTEIN, TOTALon 07-20-2024 Protein [Mass/Vol] 7.6 g/dL 6.3 - 8.0 g/dL [facility] Prot Fld-mCncon 07-20-2024 Protein (Body fld) [Mass/Vol] 2.2 g/dL Normal See Comment [facility] Comment on above: Order Comment: Speci men Type: SPECIMEN FROM PLEURA OBTAINED BY THORACENTESISOrdering Facility: [facility] Address: [address] [place] [address] Result Comment: Sero us fluids: Effusions are [...] document C49A. RAJEEV Bui: Clinical Laboratory Standards Walker: 2007. Performed By: #### 2 529-6, 2881-1, 1747-5 ####[facility] LABCLIA [id number] [facility] [id number] [place] [address] [place] Prot SerPl-mCncon 07-20-2024 Protein [Mass/Vol] 7.6 g/dL Normal 6.3-8.0 [facility] Comment on above: Order Comment: Speci men Type: BLOOD SPECIMENOrdering Facility: [facility] Address: [address] [place] [address] Performed By: #### 1 751-7, 2885-2 ####[facility] LABCLIA [id number] [address] [place] [address] [place] Protein [Mass/volume] in Ser um or Plasmaon 07-20-2024 Protein [Mass/Vol] Protein [Mass/volume ] in Serum or Plasma 6.3-8.0 [facility] US Chest limitedon Radiology Study observation (narrative) [facility] XR CHEST 2V FRONTAL/LATon XR CHEST 2V FRONTAL/LAT Normal [facility] XR Chest PA and Lateralon IMPRESSION: Decreased size of small right pleural effusion. 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: PSCB Transcribe Date/Time: Jul 20 2024 12:41P Dictated by : PANCHO CANALES MD This examination was interpreted and the report reviewed and electronically signed by: ANALY ALONSO MD on Jul 20 2024 1:49PM [facility] DIVISION OF RADIOLOGY * * *Final Report* [...] Decreased size of small right pleural effusion. 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: ALONSO Transcribe Date/Time: Jul 20 2024 12:41P Dictated by : PANCHO CANALES MD This examination was interpreted and the report reviewed and electronically signed by: ANALY ALONSO MD on Jul 20 2024 1:49PM EST [facility] Radiology Study observation (narrative) [facility] XR Chest PA and LateralOrder ed By: Ccf Provider on 07-20-2024 [facility] CNPNon 07-16-2024 CNPN Normal [facility] CNPNon 06-29-2024 CNPN Normal [facility] BODY FLUID CELL COUNTon -0 [facility] (Unsp spec) Clear Normal Clear [facility] Comment on above: Order Comment: Speci men Type: SPECIMEN FROM PLEURA OBTAINED BY THORACENTESISOrdering Facility: [facility] Address: [address] [place] [address] Performed By: #### C [facility], [id number] ####[facility] LABCLIA [id number] [place] [address] [place] Color (Body fld) Yellow Normal Yellow [facility] Comment on above: Order Comment: Speci men Type: SPECIMEN FROM PLEURA OBTAINED BY THORACENTESISOrdering Facility: [facility] Address: [address] [place] [address] Performed By: #### C CBF, [id number] ####[facility] LABCLIA [id number] [place] [address] [place] RBC Manual cnt (Body fld) [#/Vol] <2000 Normal <2000 [facility] Comment on above: Order Comment: Speci men Type: SPECIMEN FROM PLEURA OBTAINED BY THORACENTESISOrdering Facility: [facility] Address: [address] [place] [address] Performed By: #### C CBF, [id number] ####[facility] LABCLIA [id number] [place] [address] [place] Specimen source Nom (Body fld) Pleural Cavity, Right Normal [facility] Comment on above: Order Comment: Speci men Type: SPECIMEN FROM PLEURA OBTAINED BY THORACENTESISOrdering Facility: [facility] Address: [address] [place] [address] Performed By: #### C CBF, [id number] ####[facility] LABCLIA [id number] [place] [address] [place] WBC Manual cnt (Body fld) [#/Vol] 408 /uL Normal <1000 [facility] Comment on above: Order Comment: Speci men Type: SPECIMEN FROM PLEURA OBTAINED BY THORACENTESISOrdering Facility: [facility] Address: [address] [place] [address] Performed By: #### C CBF, [id number] ####[facility] LABCLIA [id number] [place] [address] [place] CNOVon 06-22-2024 CNOV Normal [facility] FLOW CYTOMETRY FOR LEUKEMIA/ LYMPHOMA (FCLL) PERFORMABLEon 06-22-2024 FLOW CYTOMETRY ORDER STATUS Results will be reported under F case ID when completed Normal [facility] Comment on above: Order Comment: Speci men Type: SPECIMEN FROM PLEURA OBTAINED BY THORACENTESISOrdering Facility: [facility] Address: [address] [place] [address] Performed By: #### F CLLP ####[facility] LABCLIA [id number] [address] [place] FLOW CYTOMETRY FOR LEUKEMIA/ LYMPHOMA (FCLL) REFLEXon 06-22-2024 DIAGNOSIS COMMENT Normal [facility] Comment on above: Order Comment: Speci men Type: SPECIMEN FROM PLEURA OBTAINED BY THORACENTESISOrdering Facility: [facility] Address: [address] [place] [address] Result Comment: This test was developed and its performance characteristics determined by [facility]'s Amna JJefferson [facility] Pathology and Laboratory Medicine Walker ([facility]). It has not been cleared or approved by the FDA. -PLMI is regulated under CLIA as qualified to perform high-complexity testing. This test is used for clinical purposes. It should not be regarded as investigational or for research. Performed By: #### F CLLRFLX ####[facility] LABCLIA [id number] [place] [address] [place] [facility] FIN[facility] PERFORM[facility] LAB Normal [facility] Comment on above: Order Comment: Speci men Type: SPECIMEN FROM PLEURA OBTAINED BY THORACENTESISOrdering Facility: [facility] Address: [address] [place] [address] Result Comment: Diag nostic interpretation performed at [facility], [address] [place] [address] CLIA# [id number] Director: Ramos Strickland M.D. Performed By: #### F CLLRFLX ####[facility] LABCLIA [id number] [address] [place] FLOW CYTOMETRY RESULTS Normal [facility] Comment on above: Order Comment: Speci men Type: SPECIMEN FROM PLEURA OBTAINED BY THORACENTESISOrdering Facility: [facility] Address: [address] [place] [address] Result Comment: Spec imen type: Pleural fluidTotal [...] PatternCD7 T/NK-cells Normal PatternCD8 T-cell subset Normal NkwsdvsJB30 B-cell subset Normal HgfskvvID63 Myeloid Normal FsqknddUD12/56 NK cells Normal GzrulifXP74 B-cells Normal UlfnaabNN89 B-cells Normal ZpaqexhVT04 B-cells subset Normal XnftchnOW89 Ramos-leukocyte Normal OjgouvpLU458 Dendritic Normal SmmtalkZN582 B-cells Normal Patternkappa/lambda B-cells Normal PatternTRBC1 T-cells Normal, polytypicFlow cytometric analysis of the pleural fluid reveals that 95% of total events have the CD45 and side scatter properties of lymphocytes.The lymphocytes are composed of a mixture of heterogeneous T-cells (75%; CD4:CD8 ratio = 2.48), NK cells (15%) and polytypic B-cells (8%).OVN/NZ 06/23/2024 Performed By: #### F CLLRFLX ####[facility] [id number] [place] [address] [place] GROSS DESCRIPTION Normal [facility] Comment on above: Order Comment: Speci men Type: SPECIMEN FROM PLEURA OBTAINED BY THORACENTESISOrdering Facility: [facility] Address: [address] [place] [address] Result Comment: A. P leural Cavity, RightRECEIVED 10 MLS PLEURAL FLUID Performed By: #### F CLLRFLX ####[facility] LABIA [id number] [place] [address] [place] INTERPRETATION Normal [facility] Comment on above: Order Comment: Speci men Type: SPECIMEN FROM PLEURA OBTAINED BY THORACENTESISOrdering Facility: [facility] Address: [address] [place] [address] Result Comment: Ther e is no immunophenotypic evidence of involvement by a lymphoproliferative disorder. Correlation with the clinical findings is suggested. Performed By: #### F CLLRFLX ####[facility] LABIA [id number] [place] [address] [place] Glucose Fld-mCncon 5 Glucose (Body fld) [Mass/Vol] 112 mg/dL Normal See Comment [facility] Comment on above: Order Comment: Speci men Type: SPECIMEN FROM PLEURA OBTAINED BY THORACENTESISOrdering Facility: [facility] Address: [address] [place] [address] Result Comment: Syno vial fluid: Synovial fluid [...] document C49A. RAJEEV Bui: Clinical Laboratory Standards Walker: 2007. Performed By: #### 2 344-0, 2529-6, 2881-1 ####[facility] LABIA [id number] [address] [place] HISTORY PHYSICALon 5 HISTORY PHYSICAL Normal Vivi devine [facility] LDH Fld-cCncon 06-22-2024 LDH (Body fld) [Catalytic activity/Vol] 100 U/L Normal See Comment [facility] Comment on above: Order Comment: Speci men Type: SPECIMEN FROM PLEURA OBTAINED BY THORACENTESISOrdering Facility: [facility] Address: [address] [place] [address] Result Comment: Pleu ral fluids: Pleural fluid [...] document C49A. RAJEEV Bui: Clinical Laboratory Standards Walker: 2007.Reference: 2. Rafael STARK, Fei Doyle. Body [...] Performed By: #### 2 344-0, 2529-6, 2881-1 ####[facility] LABCLIA [id number] [place] [address] [place] MANUAL DIFFERENTIAL, BODY FL UIDon 06-22-2024 DIF TTL, BODY FLUID 100 cells counted Normal [facility] Comment on above: Order Comment: Speci men Type: SPECIMEN FROM PLEURA OBTAINED BY THORACENTESISOrdering Facility: [facility] Address: [address] [place] [address] Performed By: #### C CBF, [id number] ####[facility] LABCLIA [id number] [place] [id number] [place] LYMPH%, BF 80 % High 18-36 [facility] Comment on above: Order Comment: Speci men Type: SPECIMEN FROM PLEURA OBTAINED BY THORACENTESISOrdering Facility: [facility] Address: [address] [place] [address] Performed By: #### C CBF, [id number] ####[facility] LABCLIA [id number] [place] [address] [place] MACRO%, BF 6 % Low 64-80 [facility] Comment on above: Order Comment: Speci men Type: SPECIMEN FROM PLEURA OBTAINED BY THORACENTESISOrdering Facility: [facility] Address: [address] [place] [address] Performed By: #### C CBF, [id number] ####[facility] LABCLIA [id number] [place] [address] [place] MESO %, BF 1 % Normal 0-2 [facility] Comment on above: Order Comment: Speci men Type: SPECIMEN FROM PLEURA OBTAINED BY THORACENTESISOrdering Facility: [facility] Address: [address] [place] [address] Performed By: #### C CBF, [id number] ####[facility] LABCLIA [id number] [place] [address] [place] MONO% BF 6 % Normal [facility] Comment on above: Order Comment: Speci men Type: SPECIMEN FROM PLEURA OBTAINED BY THORACENTESISOrdering Facility: [facility] Address: [address] [place] [address] Performed By: #### C CBF, [id number] ####[facility] LABCLIA [id number] [place] [address] [place] NEUT%, BF 6 % High 0-1 [facility] Comment on above: Order Comment: Speci men Type: SPECIMEN FROM PLEURA OBTAINED BY THORACENTESISOrdering Facility: [facility] Address: [address] [place] [address] Performed By: #### C CBF, [id number] ####[facility] LABCLIA [id number] [place] [address] [place] REAC LYMPH %, BF 1 % Normal [facility] Comment on above: Order Comment: Speci men Type: SPECIMEN FROM PLEURA OBTAINED BY THORACENTESISOrdering Facility: [facility] Address: [address] [place] [address] Performed By: #### C [facility], [id number] ####[facility] LABCLIA [id number] [place] [address] [place] OPERATIVE NOon 06-22-2024 OPERATIVE NO Normal [facility] Prot Fld-mCncon 06-22-2024 Protein (Body fld) [Mass/Vol] 2.6 g/dL Normal See Comment [facility] Comment on above: Order Comment: Speci men Type: SPECIMEN FROM PLEURA OBTAINED BY THORACENTESISOrdering Facility: [facility] Address: [address] [place] [address] Result Comment: Sero us fluids: Effusions are [...] document C49A. RAJEEV Bui: Clinical Laboratory Standards Walker: 2007. Performed By: #### 2 344-0, 2529-6, 2881-1 ####[facility] LABCLIA [id number] [place] [id number] [place] CNOVon 06-01-2024 CNOV Normal [facility] Basic metabolic 2000 panelon 05-29-2024 Anion gap [Moles/Vol] 13 mmol/L Normal 8-15 [facility] Comment on above: Order Comment: Speci men Type: BLOOD SPECIMENOrdering Facility: [facility] Address: [address] [place] [address] Performed By: #### 2 4321-2 ####[facility] LABCLIA [id number] [address] [address] [place] Calcium [Mass/Vol] 9.3 mg/dL Normal 8.5-10.2 [facility] Comment on above: Order Comment: Speci men Type: BLOOD SPECIMENOrdering Facility: [facility] Address: [address] [place] [address] Performed By: #### 2 4321-2 ####[facility] LABCLIA [id number] [place] [address] [place] Chloride [Moles/Vol] 100 mmol/L Normal 98-107 [facility] Comment on above: Order Comment: Speci men Type: BLOOD SPECIMENOrdering Facility: [facility] Address: [address] [place] [address] Performed By: #### 2 4321-2 ####[facility] LABCLIA [id number] [place] [address] [place] CO2 [Moles/Vol] 29 mmol/L Normal 22-30 [facility] Comment on above: Order Comment: Speci men Type: BLOOD SPECIMENOrdering Facility: [facility] Address: [address] [place] [address] Performed By: #### 2 4321-2 ####[facility] LABCLIA [id number] [place] [address] [place] Creatinine [Mass/Vol] 1.19 mg/dL Normal 0.73-1.22 [facility] Comment on above: Order Comment: Speci men Type: BLOOD SPECIMENOrdering Facility: [facility] Address: [address] [place] [address] Performed By: #### 2 4321-2 ####[facility] LABCLIA [id number] [place] [address] [place] Creatinine and Glomerular filtration rate.predicted panel (S/P/Bld) 64 mL/min/1.73m??? Normal >=60 [facility] Comment on above: Order Comment: Alexandru campos Type: BLOOD SPECIMENOrdering Facility: [facility] Address: [address] [place] [address] Result Comment: Kristel mated Glomerular Filtration Rate [...] actual GFR. Performed By: #### 2 4321-2 ####[facility] LABIA [id number] [place] [address] [place] Glucose [Mass/Vol] 158 mg/dL High 74-99 [facility] Comment on above: Order Comment: Alexandru campos Type: BLOOD SPECIMENOrdering Facility: [facility] Address: [address] [place] [address] Result Comment: The [place] Diabetes Association (ADA) provides guidance for cutoff [...] Standards of Medical Care in Diabetes 2016, [place] Diabetes Association. Diabetes Care. 2016.39(Suppl 1). Performed By: #### 2 4321-2 ####[facility] LABIA [id number] [place] [address] [place] Potassium [Moles/Vol] 4.1 mmol/L Normal 3.7-5.1 [facility] Comment on above: Order Comment: Alexandru campos Type: BLOOD SPECIMENOrdering Facility: [facility] Address: [address] [place] [id number] Performed By: #### 2 4321-2 ####[facility] LABCLIA [id number] [place] [id number] [place] Sodium [Moles/Vol] 142 mmol/L Normal 136-144 [facility] Comment on above: Order Comment: Speci men Type: BLOOD SPECIMENOrdering Facility: [facility] Address: [address] [place] [address] Performed By: #### 2 4321-2 ####[facility] LABCLIA [id number] [place] [address] [place] Urea nitrogen [Mass/Vol] 28 mg/dL High 9-24 [facility] Comment on above: Order Comment: Speci men Type: BLOOD SPECIMENOrdering Facility: [facility] Address: [address] [place] [address] Performed By: #### 2 4321-2 ####[facility] LABIA [id number] [place] [address] [place] CNPNon 05-25-2024 CNPN Normal [facility] ALBUMIN, BODY FLUIDon 2023 Albumin (Body fld) [Mass/Vol] 1.4 g/dL See Comment [facility] Comment on above: Body Fluid [...] document C49A. RAJEEV Bui: Clinical Laboratory Standards Walker: 2007. 2. Dionicio SERNA. Serum to ascites albumin gradient. UpToDate. 2015. Accessed on September 28, 2015. BODY FLUID CELL COUNTOrdered By: Britton Andrews on 05-19-2024 RBC Manual cnt (Body fld) [#/Vol] /uL NINF - 2000 /uL [facility] Specimen source Nom (Body fld) Pleural Cavity, Right [facility] WBC Manual cnt (Body fld) [#/Vol] 443 /uL NINF - 1000 /uL [facility] CHOLESTEROL BFLon 05-19-2024 Cholesterol (Body fld) [Mass/Vol] 30 mg/dL See Comment [facility] Comment on above: SYNOVIAL FLUIDS: [...] document C49-A. RAJEEV Bui: Clinical Laboratory Standards Walker; 2007. Comprehensive metabolic 2000 panelon 05-19-2024 Albumin [Mass/Vol] 3.8 g/dL Low 3.9 - 4.9 g/dL [facility] ALP [Catalytic activity/Vol] 174 U/L High 38 - 113 U/L [facility] ALT [Catalytic activity/Vol] 22 U/L 10 - 54 U[facility] Anion gap [Moles/Vol] 16 mmol/L High 8 - 15 mmol/L [facility] AST [Catalytic activity/Vol] 28 U/L 14 - 40 U/L [facility] Bilirubin [Mass/Vol] 0.7 mg/dL 0.2 - 1 .3 mg/dL [facility] Calcium [Mass/Vol] 9.1 mg/dL 8.5 - 10. 2 mg/dL [facility] Chloride [Moles/Vol] 98 mmol/L 98 - 10 7 mmol/L [facility] CO2 [Moles/Vol] 28 mmol/L 22 - 30 mmol/L [facility] Creatinine [Mass/Vol] 1.14 mg/dL 0.73 - 1.22 mg/dL [facility] GFR/1.73 sq M.predicted among non-blacks MDRD (S/P/Bld) [Vol rate/Area] 68 mL/min/{1.73_m2} - PINF [facility] Comment on above: Estimated Glomerular [...] 112 mg/dL High 74 - 99 mg/dL [facility] Comment on above: The [place] Diabete s Association (ADA) provides guidance for [...] Standards of Medical Care in Diabetes 2016, [place] Diabetes Association. Diabetes Care. 2016.39(Suppl 1). Interpretation and review of laboratory results Abnormal [facility] Potassium [Moles/Vol] 3.4 mmol/L Low 3.7 - 5.1 mmol/L [facility] Protein [Mass/Vol] 6.6 g/dL 6.3 - 8.0 g/dL [facility] Sodium [Moles/Vol] 142 mmol/L 136 - 144 mmol/L [facility] Urea nitrogen [Mass/Vol] 21 mg/dL 9 - 24 mg/dL [facility] GLUCOSE, BODY FLUIDon 2023 Glucose (Body fld) [Mass/Vol] 106 mg/dL See Comment [facility] Comment on above: Synovial fluid: [...] document C49A. RAJEEV Bui: Clinical Laboratory Standards Walker: 2007. LACTATE DEHYDROGENASEon LDH [Catalytic activity/Vol] 209 U/L 135 - 225 U/L [facility] Comment on above: Hemolysis present. [...] fld) [Catalytic activity/Vol] 86 U/L See Comment [facility] Comment on above: Pleural fluids: [...] document C49A. RAJEEV Bui: Clinical Laboratory Standards Walker: 2007. Reference: 2. Rafael STARK, Fei Doyle. [...] Interpretation and review of laboratory results Normal [facility] Laboratoryon 05-19-2024 Fluid Nom (Body fld) Pleural Cavity, Right [facility] Laboratory - Specimen inform ationOrdered By: Britton Andrews on 05-19-2024 Clarity (Unsp spec) Clear Clear [facility] Color (Body fld) Yellow Yellow [facility] No Panel Informationon 05-19 [facility] PH PLEURAL FLUID (FOR USE [facility])on 05-19-2024 Fluid Nom (Body fld) Pleural Cavity, Right [facility] pH (Body fld) 7.9 [pH] [facility] Comment on above: No reference range h as been established for this specimen type. This test was developed, and its performance characteristics determined by the [facility] Department of Pathology and Laboratory Medicine. It has not been cleared or approved by the FDA. The [facility] Department of Pathology and Laboratory Medicine is regulated under CLIA as qualified to perform high-complexity testing. This test is used for clinical purposes. It should not be regarded as investigational or for research. [facility] PROTEIN, BODY FLUIDon 2023 Protein (Body fld) [Mass/Vol] 2.2 g/dL See Comment [facility] Comment on above: Serous fluids: [...] document C49A. RAJEEV Bui: Clinical Laboratory Standards Walker: 2007. TRIGLYCERIDE BFLon Triglyceride (Body fld) [Mass/Vol] 13 mg/dL [facility] Comment on above: Synovial fluids: [...] document C49A. RAJEEV Bui: Clinical Laboratory Standards Walker; 2007. Albumin [facility]ld[facility] Albumin (Body fld) [Mass/Vol] 1.4 g/dL Normal See Comment [facility] Comment on above: Order Comment: Alexandru campos Type: FLUID SPECIMENOrdering Facility: [facility] Address: [address] [place] [address] Result Comment: Body Fluid Albumin may be [...] document C49A. RAJEEV Bui: Clinical Laboratory Standards Walker: 2007.2. Dionicio SERNA. Serum to ascites albumin gradient. UpToDate. 2015. Accessed on September 28, 2015. Performed By: #### 2 344-0, 2529-6, 2881-1, 68270-8, 25281-4, 1747-5 ####[facility] LABCLIA [id number] [place] [address] [place] BF STAFF REVIEW (LAB ORDER)o sandro 05-18-2024 BF REVIEW Reviewed by Lisy Acuña M.D., Ph.D Normal [facility] Comment on above: Order Comment: Alexandru campos Type: FLUID SPECIMENOrdering Facility: [facility] Address: [address] [place] [address] Performed By: #### C CBF, [id number], [id number] ####[facility] LABCLIA [id number] [place] [address] [place] BF STAFF COMMENTS Numerous mature polymorphous lymphocytes. If there is clinical concern for a lymphoproliferative disorder, please order flow cytometric analysis. Normal [facility] Comment on above: Order Comment: Speci men Type: FLUID SPECIMENOrdering Facility: [facility] Address: [address] [place] [address] Performed By: #### C CBF, [id number], [id number] ####[facility] LABCLIA [id number] [place] [address] [place] BODY FLUID CELL COUNTon 12-0 Clarity (Unsp spec) Clear Normal Clear [facility] Comment on above: Order Comment: Speci men Type: FLUID SPECIMENOrdering Facility: [facility] Address: [address] [place] [address] Performed By: #### C CBF, [id number], [id number] ####[facility] LABCLIA [id number] [place] [address] [place] Color (Body fld) Yellow Normal Yellow [facility] Comment on above: Order Comment: Speci men Type: FLUID SPECIMENOrdering Facility: [facility] Address: [address] [place] [address] Performed By: #### C CBF, [id number], [id number] ####[facility] LABCLIA [id number] [place] [id number] [place] RBC Manual cnt (Body fld) [#/Vol] <2000 Normal <2000 [facility] Comment on above: Order Comment: Speci men Type: FLUID SPECIMENOrdering Facility: [facility] Address: [address] [place] [address] Performed By: #### C CBF, [id number], [id number] ####[facility] LABCLIA [id number] [place] [address] [place] Specimen source Nom (Body fld) Pleural Cavity, Right Normal [facility] Comment on above: Order Comment: Speci men Type: FLUID SPECIMENOrdering Facility: [facility] Address: [address] [place] [address] Performed By: #### C CBF, [id number], [id number] ####[facility] LABCLIA [id number] [place] [address] [place] WBC Manual cnt (Body fld) [#/Vol] 443 /uL Normal <1000 [facility] Comment on above: Order Comment: Speci men Type: FLUID SPECIMENOrdering Facility: [facility] Address: [address] [place] [address] Performed By: #### C CBF, [id number], [id number] ####[facility] LABCLIA [id number] [place] [address] [place] Bacteria Fld Culton 05-18-20 24 Bacteria identified Cx Nom (Body fld) CULTURE, BODY FLD: No growth GRAM STAIN: No organisms seen Few Polymorphonuclear leukocytes Many Mononuclear cells Gram stain performed on cytospun specimen. Gram stain from primary specimen Normal [facility] Comment on above: Performed By: #### 6 11-4, 42696-1 ####[facility] LABCLIA [id number] [place] [address] [place] CNOVon 05-18-2024 CNOV Normal [facility] CYTOLOGY NON-GYNon 4 CASE REPORT Normal [facility] Comment on above: Order Comment: Speci men Type: FLUID SPECIMENOrdering Facility: [facility] Address: [address] [place] [address] Result Comment: Medi adrianne Cytology Report Case: [id number] Provider: Louise Cesar MD Collected: 05/18/2024 12:43 PMOrdering Location: Pulmonary Medicine Received: 05/19/2024 05:22 AMPathologist: Tracy Collins MDSpecimen: Pleural Cavity, Right Performed By: #### C YTONON ####[facility] LABCLIA [id number] [place] [address] [place] CLINICAL HISTORY pleural effusion Normal [facility] Comment on above: Order Comment: Speci men Type: FLUID SPECIMENOrdering Facility: [facility] Address: [address] [place] [address] Performed By: #### C YTONON ####[facility] LABCLIA [id number] [place] FINAL DIAGNOSIS Normal [facility] Comment on above: Order Comment: Speci men Type: FLUID SPECIMENOrdering Facility: [facility] Address: [address] [place] [address] Result Comment: A - Pleural Cavity, Right, Sterile Fluid/Body Fluid Negative for malignant cells. Chronic inflammation.The following cell blocks were associated with this case:A1\X09\Cell Block, Alcohol Fixed\X09\ Performed By: #### C YTONON ####[facility] LABCLIA [id number] [place] FINAL PERFORMING LAB Normal [facility] Comment on above: Order Comment: Speci men Type: FLUID SPECIMENOrdering Facility: [facility] Address: [address] [place] [address] Result Comment: Tech nical component, sales attendant building materials screening performed at [facility], [address] [place] [address] CLIA# [id number] interpretation performed at [facility], [address] [place] [address] CLIA# [id number] Director: Ramos Strickland M.D. Performed By: #### C YTONON ####[facility] LABCLIA [id number] [place] [address] [place] GROSS DESCRIPTION Normal [facility] Comment on above: Order Comment: Speci men Type: FLUID SPECIMENOrdering Facility: [facility] Address: [address] [place] [address] Result Comment: A. P leural Cavity, Right20 cc hazy yellow fluid with material. ThinPrep and Cell Block prepared. Performed By: #### C YTONON ####[facility] LABIA [id number] [place] [address] [place] Cholest Fld-mCncon 4 Cholesterol (Body fld) [Mass/Vol] 30 mg/dL Normal See Comment [facility] Comment on above: Order Comment: Speci men Type: FLUID SPECIMENOrdering Facility: [facility] Address: [address] [place] [address] Result Comment: SYNO VIAL FLUIDS:Synovial fluid cholesterol [...] document C49-A. RAJEEV Bui: Clinical Laboratory Standards Walker; 2007. Performed By: #### 2 344-0, 2529-6, 2881-1, 08412-6, 64670-0, 1747-5 ####[facility] LABCLIA [id number] [place] [address] [place] Fluid Nom (Body fld) Pleural Cavity, Right Normal [facility] Comment on above: Order Comment: Speci men Type: FLUID SPECIMENOrdering Facility: [facility] Address: [address] [place] [address] Performed By: #### 2 344-0, 2529-6, 2881-1, 49300-8, 54356-0, 1747-5 ####[facility] LABCLIA [id number] [place] [id number] [facility] Performed By: #### L [id number] ####[facility] LABCLIA [id number] [place] [id number] [place] [facility] Comprehensive metabolic 2000 panelon 05-18-2024 Albumin [Mass/Vol] 3.8 g/dL Low 3.9-4.9 [facility] Comment on above: Order Comment: Speci men Type: BLOOD SPECIMENOrdering Facility: [facility] Address: [address] [place] [address] Performed By: #### 2 532-0, 63028-4 ####[facility] LABCLIA [id number] [place] [address] [place] ALP [Catalytic activity/Vol] 174 U/L High 38-113 [facility] Comment on above: Order Comment: Speci men Type: BLOOD SPECIMENOrdering Facility: [facility] Address: [address] [place] [address] Performed By: #### 2 532-0, 77701-1 ####[facility] LABCLIA [id number] [place] [address] [place] ALT [Catalytic activity/Vol] 22 U/L Normal 10-54 [facility] Comment on above: Order Comment: Speci men Type: BLOOD SPECIMENOrdering Facility: [facility] Address: [address] [place] [address] Performed By: #### 2 532-0, 08737-9 ####[facility] LABCLIA [id number] [place] [id number] [place] Anion gap [Moles/Vol] 16 mmol/L High 8-15 [facility] Comment on above: Order Comment: Speci men Type: BLOOD SPECIMENOrdering Facility: [facility] Address: [address] [place] [address] Performed By: #### 2 532-0, 49401-8 ####[facility] LABCLIA [id number] [place] [address] [place] AST [Catalytic activity/Vol] 28 U/L Normal 14-40 [facility] Comment on above: Order Comment: Speci men Type: BLOOD SPECIMENOrdering Facility: [facility] Address: [address] [place] [address] Performed By: #### 2 532-0, 64705-6 ####[facility] LABCLIA [id number] [place] [address] [place] Bilirubin [Mass/Vol] 0.7 mg/dL Normal 0.2-1.3 [facility] Comment on above: Order Comment: Speci men Type: BLOOD SPECIMENOrdering Facility: [facility] Address: [address] [place] [address] Performed By: #### 2 532-0, 23689-2 ####[facility] LABCLIA [id number] [place] [address] [place] Calcium [Mass/Vol] 9.1 mg/dL Normal 8.5-10.2 [facility] Comment on above: Order Comment: Speci men Type: BLOOD SPECIMENOrdering Facility: [facility] Address: [address] [place] [address] Performed By: #### 2 532-0, 54332-0 ####[facility] LABCLIA [id number] [place] [address] [place] Chloride [Moles/Vol] 98 mmol/L Normal 98-107 [facility] Comment on above: Order Comment: Speci men Type: BLOOD SPECIMENOrdering Facility: [facility] Address: [address] [place] [address] Performed By: #### 2 532-0, 75721-3 ####[facility] LABCLIA [id number] [place] [address] [place] CO2 [Moles/Vol] 28 mmol/L Normal 22-30 [facility] Comment on above: Order Comment: Speci men Type: BLOOD SPECIMENOrdering Facility: [facility] Address: [address] [place] [address] Performed By: #### 2 532-0, 54443-2 ####[facility] LABIA [id number] [place] [address] [place] Creatinine [Mass/Vol] 1.14 mg/dL Normal 0.73-1.22 [facility] Comment on above: Order Comment: Speci men Type: BLOOD SPECIMENOrdering Facility: [facility] Address: [address] [place] [address] Performed By: #### 2 532-0, 83641-9 ####[facility] LABIA [id number] [place] [address] [place] Creatinine and Glomerular filtration rate.predicted panel (S/P/Bld) 68 mL/min/1.73m??? Normal >=60 [facility] Comment on above: Order Comment: Speci men Type: BLOOD SPECIMENOrdering Facility: [facility] Address: [address] [place] [address] Result Comment: Kristel mated Glomerular Filtration Rate [...] actual GFR. Performed By: #### 2 532-0, 47504-3 ####[facility] LABIA [id number] [place] [address] [place] Glucose [Mass/Vol] 112 mg/dL High 74-99 [facility] Comment on above: Order Comment: Speci men Type: BLOOD SPECIMENOrdering Facility: [facility] Address: [address] [place] [address] Result Comment: The [place] Diabetes Association (ADA) provides guidance for cutoff [...] Standards of Medical Care in Diabetes 2016, [place] [employer] Association. Diabetes Care. 2016.39(Suppl 1). Performed By: #### 2 532-0, 24699-6 ####[facility] LABCLIA [id number] [place] [address] [place] Potassium [Moles/Vol] 3.4 mmol/L Low 3.7-5.1 [facility] Comment on above: Order Comment: Alexandru campos Type: BLOOD SPECIMENOrdering Facility: [facility] Address: [address] [place] [address] Performed By: #### 2 532-0, 22449-8 ####[facility] LABCLIA [id number] [place] [address] [place] Protein [Mass/Vol] 6.6 g/dL Normal 6.3-8.0 [facility] Comment on above: Order Comment: Speci men Type: BLOOD SPECIMENOrdering Facility: [facility] Address: [address] [place] [address] Performed By: #### 2 532-0, 68079-8 ####[facility] LABCLIA [id number] [place] [address] [place] Sodium [Moles/Vol] 142 mmol/L Normal 136-144 [facility] Comment on above: Order Comment: Speci men Type: BLOOD SPECIMENOrdering Facility: [facility] Address: [address] [place] [address] Performed By: #### 2 532-0, 18408-0 ####[facility] LABCLIA [id number] [place] [address] [place] Urea nitrogen [Mass/Vol] 21 mg/dL Normal 9-24 [facility] Comment on above: Order Comment: Speci men Type: BLOOD SPECIMENOrdering Facility: [facility] Address: [address] [place] [address] Performed By: #### 2 532-0, 41764-0 ####[facility] LABCLIA [id number] [place] [address] [place] FATTY ACIDS PROFILE, ESSENTI Dewayne 05-18-2024 A-LINOLENIC ACID, C18 3W3 43 nmol/mL Normal 20-200 [facility] Comment on above: Order Comment: Speci men Type: BLOOD SPECIMENOrdering Facility: [facility] Address: [address] [place] [address] Performed By: #### C FAPRO ####[facility]IESCLIA [id number] [place] [address] ARACHIDIC ACID, C20 0 18 nmol/mL Normal 8-43 [facility] Comment on above: Order Comment: Speci men Type: BLOOD SPECIMENOrdering Facility: [facility] Address: [address] [place] [address] Performed By: #### C FAPRO ####[facility]IESCLIA [id number] [place] [address] ARACHIDONIC ACID, C20 4W6 672 nmol/mL Normal 310-1420 [facility] Comment on above: Order Comment: Speci men Type: BLOOD SPECIMENOrdering Facility: [facility] Address: [address] [place] [address] Performed By: #### C FAPRO ####[facility]IESCLIA [id number] [place] [address] DHA, C22 6W3 99 nmol/mL Normal 45-365 [facility] Comment on above: Order Comment: Speci men Type: BLOOD SPECIMENOrdering Facility: [facility] Address: [address] [place] [address] Performed By: #### C FAPRO ####[facility]IESCLIA [id number] [place] [address] DOCOSENOIC ACID, C22 1 4 nmol/mL Normal 1-10 [facility] Comment on above: Order Comment: Speci men Type: BLOOD SPECIMENOrdering Facility: [facility] Address: [address] [place] [address] Performed By: #### C FAPRO ####[facility]IESCLIA [id number] [place] [address] DPA, C22 5W3 30 nmol/mL Normal 13-75 [facility] Comment on above: Order Comment: Speci men Type: BLOOD SPECIMENOrdering Facility: [facility] Address: [address] [place] [address] Performed By: #### C FAPRO ####[facility]IESCLIA [id number] [place] [address] DPA, C22 5W6 13 nmol/mL Normal 6-55 [facility] Comment on above: Order Comment: Speci men Type: BLOOD SPECIMENOrdering Facility: [facility] Address: [address] [place] [address] Performed By: #### C FAPRO ####[facility]IESCLIA [id number] [place] [address] DTA, C22 4W6 18 nmol/mL Normal 10-40 [facility] Comment on above: Order Comment: Speci men Type: BLOOD SPECIMENOrdering Facility: [facility] Address: [address] [place] [address] Performed By: #### C FAPRO ####[facility]IESCLIA [id number] [place] [address] EER FATTY ACIDS PROF, ESSENTIAL SP See Note Normal [facility] Comment on above: Order Comment: Speci men Type: BLOOD SPECIMENOrdering Facility: [facility] Address: [address] [place] [address] Result Comment: Auth orized individuals can access the [facility] Report using the following link:[email or web address] By: CHACORTA [email or web address] [place], [place] [address]Ivxfrukbjk Director: Anne-Marie Correa MD, PhDCLIA Number: [id number] Performed By: #### C FAPRO ####[facility]ENTERCLIA [id number] [place] [address] EPA, C20 5W3 22 nmol/mL Normal 8-130 [facility] Comment on above: Order Comment: Speci men Type: BLOOD SPECIMENOrdering Facility: [facility] Address: [address] [place] [address] Performed By: #### C FAPRO ####[facility]IESCLIA [id number] [place] [address] G-LINOLENIC ACID, C18 3W6 20 nmol/mL Normal 10-120 [facility] Comment on above: Order Comment: Speci men Type: BLOOD SPECIMENOrdering Facility: [facility] Address: [address] [place] [address] Performed By: #### C FAPRO ####[facility]IESCLIA [id number] [place] [address] E-N-HJHCVDHGK C20:3W6 93 nmol/mL Normal 45-340 [facility] Comment on above: Order Comment: Speci men Type: BLOOD SPECIMENOrdering Facility: [facility] Address: [address] [place] [address] Performed By: #### C FAPRO ####[facility]IESCLIA [id number] [place] [address] HEXADECENOIC ACID, C16 1W9 26 nmol/mL Normal 14-95 [facility] Comment on above: Order Comment: Speci men Type: BLOOD SPECIMENOrdering Facility: [facility] Address: [address] [place] [address] Performed By: #### C FAPRO ####[facility]IESCLIA [id number] [place] [address] INTERPRETATION, FATTY ACID PROFILE Normal Normal [facility] Comment on above: Order Comment: Speci men Type: BLOOD SPECIMENOrdering Facility: [facility] Address: [address] [place] [address] Result Comment: Norm al fatty acid profile.Results reviewed and interpreted by Rosemarie Painter MD, PhD, FACINTERPRETIVE INFORMATION: Fatty Acids Profile, Essential Ser/PlasThis test does not screen for disorders of peroxisomalbiogenesis/function.This test was developed and its performance characteristicsdetermined by [facility]. It has not been cleared orapproved by the [place] Food and Drug Administration. This test wasperformed in a CLIA certified laboratory and is intended forclinical purposes. Performed By: #### C FAPRO ####[facility]IESCLIA [id number] [place] [address] LAURIC ACID, C12 0 22 nmol/mL Normal 1-200 [facility] Comment on above: Order Comment: Speci men Type: BLOOD SPECIMENOrdering Facility: [facility] Address: [address] [place] [address] Performed By: #### C FAPRO ####[facility]IESCLIA [id number] [place] [address] LINOLEIC ACID, C18 2W6 2079 nmol/mL Normal 4587-3635 [facility] Comment on above: Order Comment: Speci men Type: BLOOD SPECIMENOrdering Facility: [facility] Address: [address] [place] [address] Performed By: #### C FAPRO ####[facility]IESCLIA [id number] [place] [address] MEAD ACID, C20 3W9 6 nmol/mL Normal 1-35 [facility] Comment on above: Order Comment: Speci men Type: BLOOD SPECIMENOrdering Facility: [facility] Address: [address] [place] [address] Performed By: #### C FAPRO ####[facility]IESCLIA [id number] [place] [address] MYRISTIC ACID, C14 0 69 nmol/mL Normal 20-520 [facility] Comment on above: Order Comment: Speci men Type: BLOOD SPECIMENOrdering Facility: [facility] Address: [address] [place] [address] Performed By: #### C FAPRO ####[facility]IESCLIA [id number] [place] [address] NERVONIC ACID, C24 1W9 106 nmol/mL Normal 35-145 [facility] Comment on above: Order Comment: Speci men Type: BLOOD SPECIMENOrdering Facility: [facility] Address: [address] [place] [address] Performed By: #### C FAPRO ####[facility]IESCLIA [id number] [place] [address] OLEIC ACID, C18 1W9 1564 nmol/mL Normal 740-3900 [facility] Comment on above: Order Comment: Speci men Type: BLOOD SPECIMENOrdering Facility: [facility] Address: [address] [place] [address] Performed By: #### C FAPRO ####[facility]IESCLIA [id number] [place] [address] PALMITIC ACID, C16 0 1959 nmol/mL Normal 8362-4479 [facility] Comment on above: Order Comment: Speci men Type: BLOOD SPECIMENOrdering Facility: [facility] Address: [address] [place] [address] Performed By: #### C FAPRO ####[facility]IESCLIA [id number] [place] [address] PALMITOLEIC ACID, C16 1W7 105 nmol/mL Normal 35-580 [facility] Comment on above: Order Comment: Speci men Type: BLOOD SPECIMENOrdering Facility: [facility] Address: [address] [place] [address] Performed By: #### C FAPRO ####[facility]IESCLIA [id number] [place] [address] STEARIC ACID, C18 0 606 nmol/mL Normal 280-1250 [facility] Comment on above: Order Comment: Speci men Type: BLOOD SPECIMENOrdering Facility: [facility] Address: [address] [place] [address] Performed By: #### C FAPRO ####[facility]IESCLIA [id number] [place] [address] TOTAL FATTY ACIDS 7.7 mmol/L Normal 4.5-15.0 [facility] Comment on above: Order Comment: Speci men Type: BLOOD SPECIMENOrdering Facility: [facility] Address: [address] [place] [address] Performed By: #### C FAPRO ####[facility]IESCLIA [id number] [place] [address] TOTAL MONOUNSATURATED ACIDS 1.9 mmol/L Normal 0.9-4.7 [facility] Comment on above: Order Comment: Speci men Type: BLOOD SPECIMENOrdering Facility: [facility] Address: [address] [place] [address] Performed By: #### C FAPRO ####[facility]IESCLIA [id number] [place] [address] TOTAL POLYUNSATURATED ACIDS 3.1 mmol/L Normal 2.1-6.2 [facility] Comment on above: Order Comment: Speci men Type: BLOOD SPECIMENOrdering Facility: [facility] Address: [address] [place] [address] Performed By: #### C FAPRO ####[facility]IESCLIA [id number] [place] [address] TOTAL SATURATED ACIDS 2.7 mmol/L Normal 1.5-5.3 [facility] Comment on above: Order Comment: Speci men Type: BLOOD SPECIMENOrdering Facility: [facility] Address: [address] [place] [address] Performed By: #### C FAPRO ####[facility]IESCLIA [id number] [place] [address] TOTAL W3 0.19 mmol/L Normal 0.12-0.55 [facility] Comment on above: Order Comment: Speci men Type: BLOOD SPECIMENOrdering Facility: [facility] Address: [address] [place] [address] Performed By: #### C FAPRO ####[facility]IESCLIA [id number] [place] [address] TOTAL W6 2.9 mmol/L Normal 1.8-5.7 [facility] Comment on above: Order Comment: Speci men Type: BLOOD SPECIMENOrdering Facility: [facility] Address: [address] [place] [address] Performed By: #### C FAPRO ####[facility]IESCLIA [id number] [place] [address] TRIENE/TETRAENE RATIO 0.009 Normal 0.004-0.051 [facility] Comment on above: Order Comment: Speci men Type: BLOOD SPECIMENOrdering Facility: [facility] Address: [address] [place] [address] Performed By: #### C FAPRO ####[facility]IESCLIA [id number] [place] [address] VACCENIC ACID, C18 1W7 110 nmol/mL Normal 50-250 [facility] Comment on above: Order Comment: Speci men Type: BLOOD SPECIMENOrdering Facility: [facility] Address: [address] [place] [address] Performed By: #### C FAPRO ####[facility]IESCLIA [id number] [place] [address] FLOW CYTOMETRY FOR LEUKEMIA/ LYMPHOMA (FCLL) PERFORMABLEon 05-18-2024 FLOW CYTOMETRY ORDER STATUS Results will be reported under F case ID when completed Normal [facility] Comment on above: Order Comment: Speci men Type: FLUID SPECIMENOrdering Facility: [facility] Address: [address] [place] [address] Result Comment: Zaire ected result: Previously reported as A bone marrow sample was received for potential flow cytometry studies. Following morphologic review, flow cytometric studies will be ordered by the hematopathologist if testing is indicated. on 05/20/2024 at1:05 PM EST. Performed By: #### F CLLP ####[facility] LABCLIA [id number] [address] [place] FLOW CYTOMETRY FOR LEUKEMIA/ LYMPHOMA (FCLL) REFLEXon 05-18-2024 DIAGNOSIS COMMENT Normal [facility] Comment on above: Order Comment: Speci men Type: FLUID SPECIMENOrdering Facility: [facility] Address: [address] [place] [address] Result Comment: This assay is not designed to detect minimal residual disease, plasma cell neoplasms, or myeloid antigen maturational patterns.This test was developed and its performance characteristics determined by [facility]'s [facility] Pathology and Laboratory Medicine Walker ([facility]). It has not been cleared or approved by the FDA. -[facility] is regulated under CLIA as qualified to perform high-complexity testing. This test is used for clinical purposes. It should not be regarded as investigational or for research. Performed By: #### F CLLRFLX ####[facility] LABCLIA [id number] [address] [place] FINAL PERFORMING LAB Normal [facility] Comment on above: Order Comment: Speci men Type: FLUID SPECIMENOrdering Facility: [facility] Address: [address] [place] [address] Result Comment: Diag nostic interpretation performed at [facility], [address] [place] [address] CLIA# [id number] Director: Ramos Strickland M.D. Performed By: #### F CLLRFLX ####[facility] LABIA [id number] [address] STATES OF [facility] FLOW CYTOMETRY RESULTS Normal [facility] Comment on above: Order Comment: Speci men Type: FLUID SPECIMENOrdering Facility: [facility] Address: [address], [place] [address] Result Comment: Spec imen type: Pleural fluidTotal nucleated cell count: 320,000 totalRed blood cell count: N/ADifferential (serous fluid): See body fluid manual differentialMorphology comments: UnremarkableViability: 91%Flow Cytometry Body Fluid ImmunophenotypingMarker Normal Cell Type Result (Lymphocytes)CD3 T-cells Normal PatternCD4 T-cell subset Normal PatternCD5 T-cells Normal PatternCD7 T/NK-cells Normal PatternCD8 T-cell subset Normal EiyzeyyDG27 Myeloid Normal TvylovuXC83/56 NK cells Normal VtolmroPU86 B-cells Normal RtotxceZZ50 Blasts Normal [id number] Ramos-leukocyte Normal Patternkappa/lambda B-cells PolytypicFlow cytometric analysis of the fluid reveals that 40% of total events have the CD45 and light scatter properties of lymphocytes. The lymphocytes are composed of T-cells (54%, CD4:CD8 ratio = 22.32), NK cells (37%), and polytypic B-cells (9%). Granulocytic elements are 1% of events. Blasts are not detected. Performed By: #### F CLLRFLX ####[facility] LABIA [id number] [place] [address] [place] [facility] GROSS DESCRIPTION Normal [facility] Comment on above: Order Comment: Speci men Type: FLUID SPECIMENOrdering Facility: [facility] Address: [address] [place] [address] Result Comment: A. P leural Cavity, RightRECEIVED 4 ML OF PLEURAL FLUID Entirely submitted for Flow Cytometry. Performed By: #### F CLLRFLX ####[facility] [id number] [place] [address] [place] INTERPRETATION Normal [facility] Comment on above: Order Comment: Speci men Type: FLUID SPECIMENOrdering Facility: [facility] Address: [address] [place] [address] Result Comment: Ther e is no evidence of involvement by a lymphoproliferative disorder or abnormal blast population. Correlation with the clinical findings is suggested.FRANCOISE/SHELBY 05/20/24 Performed By: #### F CLLRFLX ####[facility] LABIA [id number] [place] [address] [place] Glucose Fld-ncon Glucose (Body fld) [Mass/Vol] 106 mg/dL Normal See Comment [facility] Comment on above: Order Comment: Alexandru campos Type: FLUID SPECIMENOrdering Facility: [facility] Address: [address] [place] [address] Result Comment: Syno vial fluid: Synovial fluid [...] document C49A. RAJEEV Bui: Clinical Laboratory Standards Walker: 2007. Performed By: #### 2 344-0, 2529-6, 2881-1, 23087-1, 48929-1, 1747-5 ####[facility] LABIA [id number] [place] [address] [place] LDH Fld-[facility] 05-18-2024 LDH (Body fld) [Catalytic activity/Vol] 86 U/L Normal See Comment [facility] Comment on above: Order Comment: Alexandru campos Type: FLUID SPECIMENOrdering Facility: [facility] Address: [address] [place] [address] Result Comment: Pleu ral fluids: Pleural fluid [...] document C49A. RAJEEV Bui: Clinical Laboratory Standards Walker: 2007.Reference: 2. Rafael STARK, Fei Doyle. Body [...] Performed By: #### 2 344-0, 2529-6, 2881-1, 41752-4, 40793-0, 1747-5 ####[facility] LABCLIA [id number] [place] [address] [place] LDH SerPl-cCncon 05-18-2024 LDH [Catalytic activity/Vol] 209 U/L Normal 135-225 [facility] Comment on above: Order Comment: Speci men Type: BLOOD SPECIMENOrdering Facility: [facility] Address: [address] [place] [address] Result Comment: Hemo lysis present. The origin of the hemolysis, in vitro versus an in vivo hemolytic process, cannot be distinguished via this assay alone. In vitro hemolysis may lead to non-physiological (spurious) elevation in lactate dehydrogenase (LDH) results. Theresult should be interpreted in context of the clinical setting and other test results. Suggest reorder as clinically indicated. Performed By: #### 2 532-0, 29942-9 ####[facility] LABCLIA [id number] [place] [address] [place] MANUAL DIFFERENTIAL, BODY FL UIDon 05-18-2024 DIF TTL, BODY FLUID 100 cells counted Normal [facility] Comment on above: Order Comment: Speci men Type: FLUID SPECIMENOrdering Facility: [facility] Address: [address] [place] [address] Performed By: #### C CBF, [id number], [id number] ####[facility] LABCLIA [id number] [place] [address] [place] EOSIN%, BF 2 % Normal [facility] Comment on above: Order Comment: Speci men Type: FLUID SPECIMENOrdering Facility: [facility] Address: [address] [place] [address] Performed By: #### C CBF, [id number], [id number] ####[facility] LABCLIA [id number] [place] [address] [place] LYMPH%, BF 80 % High 18-36 [facility] Comment on above: Order Comment: Speci men Type: FLUID SPECIMENOrdering Facility: [facility] Address: [address] [place] [address] Result Comment: Zaire ected result: Previously reported as 75 % on 05/19/2024 at 6:29 AM EST. Performed By: #### C CBF, [id number], [id number] ####[facility] LABCLIA [id number] [place] [address] [place] MACRO%, BF 4 % Low 64-80 [facility] Comment on above: Order Comment: Speci men Type: FLUID SPECIMENOrdering Facility: [facility] Address: [address] [place] [address] Performed By: #### C CBF, [id number], [id number] ####[facility] LABCLIA [id number] [place] [address] [place] NEUT%, BF 14 % High 0-1 [facility] Comment on above: Order Comment: Speci men Type: FLUID SPECIMENOrdering Facility: [facility] Address: [address] [place] [address] Performed By: #### C CBF, [id number], [id number] ####[facility] LABCLIA [id number] [place] [address] [place] REAC LYMPH %, BF Normal [facility] Comment on above: Order Comment: Speci men Type: FLUID SPECIMENOrdering Facility: [facility] Address: [address] [place] [address] Result Comment: Zaire ected result: Previously reported as 5 % on 05/19/2024 at 6:29 AM EST. Performed By: #### C CBF, [id number], [id number] ####[facility] LABCLIA [id number] [place] [address] [place] Microorganism Spec Culton Microorganism identified Cx Nom (Unsp spec) CULTURE, AFB: No Acid Fast Bacilli isolated after 42 days AFB STAIN: No acid fast bacilli seen by fluorochrome stain Normal [facility] Comment on above: Performed By: #### 6 11-4, 42849-7 ####[facility] LABCLIA [id number] [place] [address] [place] PH PLEURAL FLUID (FOR USE [facility])on 05-18-2024 pH (Body fld) 7.9 [pH] Normal [facility] Comment on above: Order Comment: Speci men Type: FLUID SPECIMENOrdering Facility: [facility] Address: [address] [place] [address] Result Comment: No r eference range has been established for this specimen type.This test was developed, and its performance characteristics determined by the [facility] Department of Pathology and Laboratory Medicine. It has not been cleared or approved by the FDA. The [facility] Department of Pathology and Laboratory Medicine is regulated under CLIA as qualified to perform high-complexity testing. This test is used for clinical purposes. It should not be regarded as investigational or for research. Performed By: #### L [id number] ####[facility] LABCLIA [id number] [place] [address] [place] Prot Fld-mCncon 05-18-2024 Protein (Body fld) [Mass/Vol] 2.2 g/dL Normal See Comment [facility] Comment on above: Order Comment: Speci men Type: FLUID SPECIMENOrdering Facility: [facility] Address: [address] [place] [address] Result Comment: Sero us fluids: Effusions are [...] document C49A. RAJEEV Bui: Clinical Laboratory Standards Walker: 2006. Performed By: #### 2 344-0, 2529-6, 2881-1, 61866-1, 94551-2, 1747-5 ####[facility] LABCLIA [id number] [facility] [id number] [place], [place] [id number] [place] Trigl Fld-mCncon 05-18-2024 Triglyceride (Body fld) [Mass/Vol] 13 mg/dL Normal [facility] Comment on above: Order Comment: Alexandru campos Type: FLUID SPECIMENOrdering Facility: [facility] Address: [address] [place] [address] Result Comment: Syno vial fluids: Synovial fluid [...] document C49A. RAJEEV Bui: Clinical Laboratory Standards Walker; 2007. Performed By: #### 2 344-0, 2529-6, 2881-1, 02092-2, 68132-9, 1747-5 ####[facility] LABJENAE [id number] [facility] [id number] [id number] [place] XR CHEST 2V FRONTAL/LATon XR CHEST 2V FRONTAL/LAT Normal [facility] XR Chest PA and Lateralon IMPRESSION: Slight decrease in the right pleural effusion.. 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: ALONSO Transcribe Date/Time: May 18 2024 1:40P Dictated by : REBECCA LOVELACE MD This examination was interpreted and the report reviewed and electronically signed by: REBECCA LOVELACE MD on May 18 2024 1:46PM [facility] DIVISION OF RADIOLOGY * * *Final Report* [...] the thoracic spine. DIVISION OF RADIOLOGY Provider, [facility] - 05/18/2024 * * *Final [...] Slight decrease in the right pleural effusion.. 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: PSCAc Transcribe Date/Time: May 18 2024 1:40P Dictated by : REBECCA LOVELACE MD This examination was interpreted and the report reviewed and electronically signed by: REBECCA LOVELACE MD on May 18 2024 1:46PM EST [facility] Radiology Study observation (narrative) [facility] XR Chest PA and LateralOrder ed By: Ccf Provider on 05-18-2024 [facility] ANES POSTPROC EVALon 024 ANES POSTPROC EVAL HNO ID: [id number] Author: STEVEN DONNELLY MD Service: Anesthesiology Author Type: Anesthesiologist Type: Anesthesia Postprocedure Evaluation Filed: 04/28/2024 16:14 Note Text: POST ANESTHESIA EVALUATION NOTE : 1950 Procedure Summary Date: 04/28/24 Room / Location: [facility] Endoscopy - ENDO Anesthesia Start: 1129 Anesthesia Stop: 1210 Procedures: EGD DIAGNOSTIC COLONOSCOPY DIAGNOSTIC Diagnosis: Diarrhea, unspecified type Scheduled Providers: Vic Ponce MD; Steven Donnelly I, MD; Julian Batista APRN.FOOD SERVICE Responsible Provider: Steven Donnelly I, MD Anesthesia [...] April 28, 2024 TIME: 4:14 PM CSN: [id number] Normal [facility] ANES PRE-OPon 04-28-2024 ANES PRE-OP HNO ID: [id number] Author: STEVEN DONNELLY MD Service: Anesthesiology Author Type: Anesthesiologist Type: Anesthesia Preprocedure Evaluation Filed: 04/28/2024 11:18 Note Text: ANESTHESIOLOGY DAY OF SURGERY NOTE : 1950 Procedure Information Date/Time: 04/28/24 1230 Scheduled providers: Vic Ponce MD; Steven Donnelly I, MD; Julian Batista APRN.FOOD SERVICE Procedures: EGD DIAGNOSTIC COLONOSCOPY DIAGNOSTIC Location: [facility] Endoscopy - ENDO Estimated body [...] and consent discussed: yes. Patient / Responsible Alliance Party agrees to proceed: yes Patient / [...] Medications as of 04/28/2024 Medication Sig - XYAASSZ-IPTMDKIOZ-DHIG ORAL Take by mouth. - iv contrast [...] April 28, 2024 TIME: 11:17 AM CSN: [id number] Normal [facility] ANES PRE-OP Normal [facility] Colonoscopyon 04-28-2024 Colonoscopy [facility] Gastrointestinal Endoscopy Patient Name: Sav Raymundo Procedure Date: 04/28/2024 11:16 AM Date of : 1950 Admit Type: Outpatient Age: 74 Room: [place] [address] Gender: Male Note Status: Finalized Attending MD: Vic Ponce MD, [id number] Procedure: Colonoscopy Indications: Chronic diarrhea Comorbidities Patient [...] physician, the nurse, the anesthesiologist and the journeyman painter in the procedure room at 11:29 AM. [...] prior dose. Procedure Code(s): --- Professional --- 94952, Colonoscopy, flexible; with biopsy, single or multiple Diagnosis Code(s): --- Professional --- K52.9, Noninfective gastroenteritis and colitis, unspecified CPT copyright 2020 [employer]. All rights reserved. The codes documented in this report are preliminary and upon fourth officer review may be revised to meet current compliance requirements. Attending Participation: I personally performed the entire procedure. Scope In: 11:48:20 AM Scope Out: 11:55:18 AM (more content not included)... Normal [facility] Colonoscopy studyon 04-28-20 [facility] Gastrointestinal Endoscopy Patient Name: Sav Raymundo Procedure Date: 04/28/2024 11:16 AM Date of : 1950 Admit Type: Outpatient Age: 74 Room: [place] [address] Gender: Male Note Status: Finalized Attending MD: Vic Ponce MD, [id number] Procedure: Colonoscopy Indications: Chronic diarrhea Comorbidities Patient [...] physician, the nurse, the anesthesiologist and the journeyman painter in the procedure room at 11:29 AM. [...] polyps, s (more content not included)... PROVATION [facility] Radiology Study observation (narrative) [facility] EGD Study observation Narrat lisandroon 04-28-2024 [facility] Gastrointestinal Endoscopy Patient Name: Sav Raymundo Procedure Date: 04/28/2024 11:17 AM Date of : 1950 Admit Type: Outpatient Age: 74 Room: [place] [address] Gender: Male Note Status: Finalized Attending MD: Vic Ponce MD, [id number] Procedure: Upper GI endoscopy Indications: Dysphagia, Heartburn, [...] physician, the nurse, the anesthesiologist and the journeyman painter in the procedure room at 11:29 AM. [...] incisors. T (more content not included)... PROVATION [facility] Radiology Study observation (narrative) [facility] HISTORY PHYSICALon HISTORY PHYSICAL HNO ID: [id number] Author: VIC PONCE MD Service: Gastroenterology Author [...] MAC Additional Comments: None Vic Ponce MD [facility] NURSING PROGon 04-28-2024 NURSING PROG HNO ID: [id number] Author: JAHAIRA HOOD RN Service: Nursing Author [...] (RECOMMENDATION): None Electronically Signed By: Jahaira Hood [facility] NURSING PROG HNO ID: [id number] Author: MAUREEN LAUGHLIN RN Service: ? Author [...] (RECOMMENDATION): None Electronically Signed By: Maureen Laughlin [facility] NURSING PROG Normal [facility] SURGICAL PATHOLOGYon 024 CASE REPORT [facility] Comment on above: Order Comment: Speci men Type: TISSUE SPECIMEN [facility] Address: [address] [place] [address] Result Comment: Surg ical Pathology Report Case: [id number] Authorizing Provider: Vic Ponce MD Collected: 04/28/2024 11:37 AM Ordering Location: [facility] Received: 04/28/2024 01:31 PM Endoscopy - ENDO Pathologist: Simba Frias MD, PhD Specimens: A) - Small Bowel, Duodenum, Biopsy B) - Stomach, Biopsy C) - Stomach, Polyp, Biopsy D) - Esophagus, Biopsy E) - Small Bowel, Ileum, Biopsy F) - Colon, Biopsy, random colon Performed By: #### S #### [facility] CLIA [id number] [address] [place] [address] STATES [facility] DIAGNOSIS COMMENT Comment F: This toy katy [...] be of value in this differential. Normal [facility] Comment on above: Order Comment: Alexandru campos Type: TISSUE SPECIMEN [facility] Address: [address] [place] [address] Performed By: #### S #### [facility] CLIA [id number] [address] [place] [address] FINAL DIAGNOSIS Normal [facility] Comment on above: Order Comment: Alexandru campos Type: TISSUE SPECIMEN [facility] Address: [address] [place] [address] Result Comment: A. D uodenum, biopsy: -Duodenal [...] see comment. Performed By: #### S #### [facility] CLIA [id number] [address] [place] [address] [place] FINAL PERFORMING LAB Normal [facility] Comment on above: Order Comment: Speci men Type: TISSUE SPECIMEN [facility]ing Facility[facility] Address: [address] [place] [address] Result Comment: Diag nostic interpretation performed at [facility], [address] [place] [address] CLIA# [id number] Indian Blanket Weaver: Ramos Strickland M.D. Performed By: #### S #### [facility] CLIA [id number] [address] [place] [address] GROSS DESCRIPTION Normal [facility] Comment on above: Order Comment: Speci men Type: TISSUE SPECIMEN [facility]ing [facility] Address: [address] [place] [address] Result Comment: A. S mall Bowel, Duodenum, [...] 2024 5:43 PM Gross examination performed at [facility], [address] [place] [address] Performed By: #### S #### [facility] CLIA [id number] [address] [place] [address] Upper GI endoscopyon 024 Upper GI endoscopy [facility] Gastrointestinal Endoscopy Patient Name: Sav Raymundo Procedure Date: 04/28/2024 11:17 AM Date of : 1950 Admit Type: Outpatient Age: 74 Room: [place] [address] Gender: Male Note Status: Finalized Attending MD: Vic Ponce MD, [id number] Procedure: Upper GI endoscopy Indications: Dysphagia, Heartburn, Nausea with vomiting Providers: Vic Ponce MD, Riley Almonte, EVAN, Abbie Ivey, RN, Adri Bradley, EVNA (Assisting Nurse) Patient Profile: This is a [...] physician, the nurse, the anesthesiologist and the journeyman painter in the procedure room at 11:29 AM. [...] Procedure Co (more content not included)... Normal [facility] No Panel Informationon 04-[address] [facility] CT ENTEROGRAPHY W IVCONon CT ENTEROGRAPHY W IVCON Normal [facility] CT Small bowel W contrast PO and W contrast Scarlett 04-22-2024 IMPRESSION: No active bowel inflammation. Small volume ascites and small right pleural effusion, both increased since 12/20/2023. 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: ALONSO Transcribe Date/Time: Apr 22 2024 12:06P Dictated by : MILDRED GRANDA MD This examination was interpreted and the report reviewed and electronically signed by: MILDRED GRANDA MD on Apr 22 2024 12:24PM [facility] DIVISION OF RADIOLOGY * * *Final Report* [...] catheter in place. DIVISION OF RADIOLOGY Provider, [facility] - 04/22/2024 * * *Final Report* * * DATE OF EXAM: Apr 22 2024 11:45AM [facility] 0545 - CT ENTEROGRAPHY W IVCON / [...] right pleural effusion, both increased since 12/20/2023. 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: PSCB Transcribe Date/Time: Apr 22 2024 12:06P Dictated by : MILDRED GRANDA MD This examination was interpreted and the report reviewed and electronically signed by: MILDRED GRANDA MD on Apr 22 2024 12:24PM EST [facility] Radiology Study observation (narrative) [facility] CT Small bowel W contrast PO and W contrast IVOrdered By: Ccf Provider on 04-22-2024 [facility] Calprotectin (Stl) [Mass/Mas s]on 04-21-2024 CALPROTECTIN, FECAL QUANTITATIVE 99.0 ug/g High NINF - 50 ug/g [facility] Interpretation and review of laboratory results Abnormal [facility] G. lamblia+Cryptosporidium s p Ag IA Ql (Stl)Ordered By: Bobby Mccallum on 04-21-2024 Cryptosporidium sp Ag Ql (Stl) Negative Negative [facility] G. lamblia Ag Ql (Stl) Negative Negative [facility] Interpretation and review of laboratory results Normal [facility] A single negative te st result does not rule out a parasitic infection. Due to intermittent shedding of parasites, it is recommended that three specimens collected over a 7 day period are submitted to improve detection sensitivity. [facility] Gastrointestinal pathogens i dentified BRYN+probe Nom (Stl)Ordered By: Steven Olsen on 04-21-2024 Campylobacter sp DNA BRYN+probe Nom (Unsp spec) Not detected Not Detected [facility] Interpretation and review of laboratory results Normal [facility] Salmonella sp DNA BRYN+probe Ql (Unsp spec) Not detected Not Detected [facility] Shiga toxin stx gene BRYN+probe Nom (Unsp spec) Not detected Not Detected [facility] Shigella sp DNA BRYN+probe Ql (Unsp spec) Not detected Not Detected [facility] Laboratory - Microbiology an d Antimicrobial susceptibilityon 04-21-2024 M. tuberculosis tuberculin stim IFN-g Ql (Bld) Negative [facility] No Panel Informationon 04-21 ELASTASE INTERPRETATION Normal Normal [facility] ELASTASE-1 CONCENTRATION 553 ug/g 200 - PINF ug/g [facility] Comment on above: Interpretation: <100 ug/g: Severe Exocrine Pancreatic Insufficiency 100-199 ug/g: Mild to Moderate Exocrine Pancreatic Insufficiency >=200 ug/g: Normal Interpretation and review of laboratory results Normal [facility] Mitogen minus Nil 1.19 - PINF [facility] TB Gamma Interpretation Infection with M. tuberculosis complex is unlikely. If latent tuberculosis infection is highly suspected, a negative result does not rule out the infection. Specimens from immunocompromised patients and those <5 years of age may show false negative results. In case of a contact investigation, please repeat 8-12 weeks after a known exposure. [facility] TB Nil NINF [facility] TB1 Ag minus Nil [facility] TB2 Ag minus Nil 0.00 [facility] 25(OH)D3 SerPl-mCncon 2023 25-hydroxyvitamin D3 [Mass/Vol] 36.6 ng/mL Normal 31.0-80.0 [facility] Comment on above: Order Comment: Speci men Type: BLOOD SPECIMENOrdering Facility: [facility] Address: [address] [place] [address] Result Comment: Clas sification of 25 [place] Vitamin D status:Deficiency/Insufficiency: < or = 30 ng/ml.Sufficiency/Optimal Levels: 31-80 ng/mLToxicity: > 100 ng/mL.Test performed by chemiluminescent immunoassay. Performed By: #### 1 989-3 ####[facility] LABCLIA [id number] [place] [address] [place] 25-hydroxyvitamin D3 [Mass/V ol]on 04-20-2024 Interpretation and review of laboratory results Normal [facility] The reference range interval was based on an analysis of samples from healthy adults and may not pertain to children from 0-18 years old. [facility] BLOOD TB SCREENon 04-20-2024 M. tuberculosis tuberculin stim IFN-g Ql (Bld) Negative Normal [facility] Comment on above: Order Comment: Speci men Type: BLOOD SPECIMENOrdering Facility: [facility] Address: [address] [place] [address] Performed By: #### I NFTBP ####[facility] LABCLIA [id number] [place] [address] [place] MITOGEN MINUS NIL 1.19 IU/mL Normal >=0.50 [facility] Comment on above: Order Comment: Speci men Type: BLOOD SPECIMENOrdering Facility: [facility] Address: [address] [place] [address] Performed By: #### I NFTBP ####[facility] LABCLIA [id number] [place] [address] [place] TB GAMMA INTERPRETATION Normal [facility] Comment on above: Order Comment: Speci men Type: BLOOD SPECIMENOrdering Facility: [facility] Address: [address] [place] [address] Performed By: #### I NFTBP ####[facility] LABCLIA [id number] [place] [address] [place] TB NIL <0.00 Normal <=8.00 [facility] Comment on above: Order Comment: Speci men Type: BLOOD SPECIMENOrdering Facility: [facility] Address: [address] [place] [address] Performed By: #### I NFTBP ####[facility] LABCLIA [id number] [place] [address] [place] TB1 AG MINUS NIL <0.00 Normal <0.35 [facility] Comment on above: Order Comment: Speci men Type: BLOOD SPECIMENOrdering Facility: [facility] Address: [address] [place] [address] Performed By: #### I NFTBP ####[facility] LABCLIA [id number] [place] [address] [place] TB2 AG MINUS NIL 0.00 IU/mL Normal <0.35 [facility] Comment on above: Order Comment: Speci men Type: BLOOD SPECIMENOrdering Facility: [facility] Address: [address] [place] [address] Performed By: #### I NFTBP ####[facility] LABIA [id number] [place] [address] [place] C diff Tox gens Stl Ql BRYN+p robeon 04-20-2024 C. difficile toxin genes BRYN+probe Ql (Stl) Negative Normal Negative for C. difficile toxin by PCR [facility] Comment on above: Order Comment: Speci men Type: STOOL SPECIMENOrdering Facility: [facility] Address: [address] [place] [address] Performed By: #### 5 4067-4, 97885-9, PANCEF ####[facility] LABIA [id number] [place] [address] [place] C. difficile toxin genes BRYN +probe Ql (Stl)on 04-20-2024 Interpretation and review of laboratory results Normal [facility] CBC W Auto Differential pane l (Bld)on 04-20-2024 Basophils (Bld) [#/Vol] 0.04 10*3/uL [facility] Basophils/100 WBC (Bld) 0.5 % [facility] Differential cell count method Nom (Bld) Auto [facility] Eosinophils (Bld) [#/Vol] [facility] Eosinophils/100 WBC (Bld) 0.0 % [facility] Erythrocyte distribution width (RBC) [Ratio] 14.7 % 11.5 - 15.0 % [facility] Hematocrit (Bld) [Volume fraction] 38.0 % Low 39.0 - 51.0 % [facility] Hemoglobin (Bld) [Mass/Vol] 12.0 g/dL Low 13.0 - 17.0 g/dL [facility] Immature granulocytes (Bld) [#/Vol] 0.03 10*3/uL [facility] Immature granulocytes/100 WBC (Bld) 0.4 % [facility] Interpretation and review of laboratory results Abnormal [facility] Lymphocytes (Bld) [#/Vol] 0.95 10*3/uL Low [facility] Lymphocytes/100 WBC (Bld) 11.9 % [facility] MCH (RBC) [Entitic mass] 30.5 pg 26.0 - 34.0 pg [facility] MCHC (RBC) [Mass/Vol] 31.6 g/dL 30.5 - 36.0 g/dL [facility] MCV (RBC) [Entitic vol] 96.7 fL 80.0 - 100.0 fL [facility] Monocytes (Bld) [#/Vol] 1.03 10*3/uL High [facility] Monocytes/100 WBC (Bld) 12.9 % [facility] Neutrophils (Bld) [#/Vol] 5.91 10*3/uL [facility] Neutrophils/100 WBC (Bld) 74.3 % [facility] Nucleated RBC (Bld) [#/Vol] [facility] Nucleated RBC/100 WBC (Bld) [Ratio] 0.0 % /100 WBC [facility] Platelet mean volume (Bld) [Entitic vol] 11.1 fL 9.0 - 12.7 fL [facility] Platelets (Bld) [#/Vol] 267 10*3/uL [facility] RBC (Bld) [#/Vol] 3.93 10*6/uL Low 4.20 - 6.0 0 m/uL [facility] WBC (Bld) [#/Vol] 7.96 10*3/uL [facility] Basophils (Bld) [#/Vol] 0.04 10*3/uL Normal <0.11 [facility] Comment on above: Order Comment: Speci men Type: BLOOD SPECIMENOrdering Facility: [facility] Address: [address] [place] [address] Performed By: #### 5 7021-8 ####[facility] LABCLIA [id number] [place] [address] [place] Basophils/100 WBC (Bld) 0.5 % Normal [facility] Comment on above: Order Comment: Speci men Type: BLOOD SPECIMENOrdering Facility: [facility] Address: [address] [place] [address] Performed By: #### 5 7021-8 ####[facility] LABCLIA [id number] [place] [address] [place] Differential cell count method Nom (Bld) Auto Normal [facility] Comment on above: Order Comment: Speci men Type: BLOOD SPECIMENOrdering Facility: [facility] Address: [address] [place] [address] Performed By: #### 5 7021-8 ####[facility] LABCLIA [id number] [place] [address] [place] Eosinophils (Bld) [#/Vol] 10*3/uL Normal <0.46 [facility] Comment on above: Order Comment: Speci men Type: BLOOD SPECIMENOrdering Facility: [facility] Address: [address] [place] [address] Performed By: #### 5 7021-8 ####[facility] LABCLIA [id number] [place] [address] [place] Eosinophils/100 WBC (Bld) 0.0 % Normal [facility] Comment on above: Order Comment: Speci men Type: BLOOD SPECIMENOrdering Facility: [facility] Address: [address] [place] [address] Performed By: #### 5 7021-8 ####[facility] LABCLIA [id number] [place] [address] [place] Erythrocyte distribution width (RBC) [Ratio] 14.7 % Normal 11.5-15.0 [facility] Comment on above: Order Comment: Speci men Type: BLOOD SPECIMENOrdering Facility: [facility] Address: [address] [place] [address] Performed By: #### 5 7021-8 ####[facility] LABCLIA [id number] [place] [address] [place] Hematocrit (Bld) [Volume fraction] 38.0 % Low 39.0-51.0 [facility] Comment on above: Order Comment: Speci men Type: BLOOD SPECIMENOrdering Facility: [facility] Address: [address] [place] [address] Performed By: #### 5 7021-8 ####[facility] LABCLIA [id number] [place] [address] [place] Hemoglobin (Bld) [Mass/Vol] 12.0 g/dL Low 13.0-17.0 [facility] Comment on above: Order Comment: Speci men Type: BLOOD SPECIMENOrdering Facility: [facility] Address: [address] [place] [address] Performed By: #### 5 7021-8 ####[facility] LABCLIA [id number] [place] [address] [place] Immature granulocytes (Bld) [#/Vol] 0.03 10*3/uL Normal <0.10 [facility] Comment on above: Order Comment: Speci men Type: BLOOD SPECIMENOrdering Facility: [facility] Address: [address] [place] [address] Performed By: #### 5 7021-8 ####[facility] LABCLIA [id number] [place] [address] [place] Immature granulocytes/100 WBC (Bld) 0.4 % Normal [facility] Comment on above: Order Comment: Speci men Type: BLOOD SPECIMENOrdering Facility: [facility] Address: [address] [place] [address] Performed By: #### 5 7021-8 ####[facility] LABCLIA [id number] [place] [address] [place] Lymphocytes (Bld) [#/Vol] 0.95 10*3/uL Low 1.00-4.00 [facility] Comment on above: Order Comment: Speci men Type: BLOOD SPECIMENOrdering Facility: [facility] Address: [address] [place] [address] Performed By: #### 5 7021-8 ####[facility] LABIA [id number] [place] [address] [place] Lymphocytes/100 WBC (Bld) 11.9 % Normal [facility] Comment on above: Order Comment: Speci men Type: BLOOD SPECIMENOrdering Facility: [facility] Address: [address] [place] [address] Performed By: #### 5 7021-8 ####[facility] [id number] [place] [address] [place] MCH (RBC) [Entitic mass] 30.5 pg Normal 26.0-34.0 [facility] Comment on above: Order Comment: Speci men Type: BLOOD SPECIMENOrdering Facility: [facility] Address: [address] [place] [address] Performed By: #### 5 7021-8 ####[facility] LABIA [id number] [place] [address] [place] MCHC (RBC) [Mass/Vol] 31.6 g/dL Normal 30.5-36.0 [facility] Comment on above: Order Comment: Speci men Type: BLOOD SPECIMENOrdering Facility: [facility] Address: [address] [place] [address] Performed By: #### 5 7021-8 ####[facility] LABIA [id number] [place] [address] [place] MCV (RBC) [Entitic vol] 96.7 fL Normal 80.0-100.0 [facility] Comment on above: Order Comment: Speci men Type: BLOOD SPECIMENOrdering Facility: [facility] Address: [address] [place] [address] Performed By: #### 5 7021-8 ####[facility] LABCLIA [id number] [place] [address] [place] Monocytes (Bld) [#/Vol] 1.03 10*3/uL High <0.87 [facility] Comment on above: Order Comment: Speci men Type: BLOOD SPECIMENOrdering Facility: [facility] Address: [address] [place] [address] Performed By: #### 5 7021-8 ####[facility] LABCLIA [id number] [place] [address] [place] Monocytes/100 WBC (Bld) 12.9 % Normal [facility] Comment on above: Order Comment: Speci men Type: BLOOD SPECIMENOrdering Facility: [facility] Address: [address] [place] [address] Performed By: #### 5 7021-8 ####[facility] LABCLIA [id number] [place] [address] [place] Neutrophils (Bld) [#/Vol] 5.91 10*3/uL Normal 1.45-7.50 [facility] Comment on above: Order Comment: Speci men Type: BLOOD SPECIMENOrdering Facility: [facility] Address: [address] [place] [address] Performed By: #### 5 7021-8 ####[facility] LABCLIA [id number] [place] [address] [place] Neutrophils/100 WBC (Bld) 74.3 % Normal [facility] Comment on above: Order Comment: Speci men Type: BLOOD SPECIMENOrdering Facility: [facility] Address: [address] [place] [address] Performed By: #### 5 7021-8 ####[facility] LABCLIA [id number] [place] [address] [place] Nucleated RBC (Bld) [#/Vol] 10*3/uL Normal <0.01 [facility] Comment on above: Order Comment: Speci men Type: BLOOD SPECIMENOrdering Facility: [facility] Address: [address] [place] [address] Performed By: #### 5 7021-8 ####[facility] LABIA [id number] [place] [address] [place] Nucleated RBC/100 WBC (Bld) [Ratio] 0.0 /100 WBC Normal [facility] Comment on above: Order Comment: Speci men Type: BLOOD SPECIMENOrdering Facility: [facility] Address: [address] [place] [address] Performed By: #### 5 7021-8 ####[facility] LABIA [id number] [place] [address] [place] Platelet mean volume (Bld) [Entitic vol] 11.1 fL Normal 9.0-12.7 [facility] Comment on above: Order Comment: Speci men Type: BLOOD SPECIMENOrdering Facility: [facility] Address: [address] [place] [address] Performed By: #### 5 7021-8 ####[facility] LABIA [id number] [place] [address] [place] Platelets (Bld) [#/Vol] 267 10*3/uL Normal 150-400 [facility] Comment on above: Order Comment: Speci men Type: BLOOD SPECIMENOrdering Facility: [facility] Address: [address] [place] [address] Performed By: #### 5 7021-8 ####[facility] LABIA [id number] [place] [address] [place] RBC (Bld) [#/Vol] 3.93 10*6/uL Low 4.20-6.[address] [facility] Comment on above: Order Comment: Speci men Type: BLOOD SPECIMENOrdering Facility: [facility] Address: [address] [place] [address] Performed By: #### 5 7021-8 ####[facility] LABCLIA [id number] [place] [address] [place] WBC (Bld) [#/Vol] 7.96 10*3/uL Normal 3.70-11.[address] [facility] Comment on above: Order Comment: Speci beth Type: BLOOD SPECIMENOrdering Facility: [facility] Address: [address] [place] [address] Performed By: #### 5 7021-8 ####[facility] LABCLIA [id number] [address] [place] CELIAC SCREENon 04-20-2024 GLIAD DEAMIDATED IGA QUAL Negative Normal Negative, Test not Indicated [facility] Comment on above: Order Comment: Alexandru campos Type: BLOOD SPECIMENOrdering Facility: [facility] Address: [address] [place] [address] Result Comment: This is used as an aid in diagnosis of celiac disease. Clinical correlation is required.The following results were obtained with an [employer]ite Gliadin IgA SAL[place] Gliadin. Gliadin IgA values obtained with different manufacturers' assay methods may not be used interchangeably. The magnitude of the reported IgA levels cannot be correlated to an endpoint titer. Performed By: #### L [id number] ####[facility] LABIA [id number] [place] [address] [place] Gliadin peptide IgA Qn (S) 4 Units Normal <20 [facility] Comment on above: Order Comment: Speci men Type: BLOOD SPECIMENOrdering Facility: [facility] Address: [address] [place] [address] Performed By: #### L [id number] ####[facility] LABCLIA [id number] [place] [address] [place] INTERPRETATION No serological evide nce of celiac disease, however, if celiac disease is clinically suspected and patient is not on gluten-free diet, histological diagnosis may be considered. HLA testing may help with risk assessment. Normal [facility] Comment on above: Order Comment: Speci men Type: BLOOD SPECIMENOrdering Facility: [facility] Address: [address] [place] [address] Performed By: #### L [id number] ####[facility] LABCLIA [id number] [place] [address] [place] TRANSGLUTAMINASE IGA ABS INTERPRETATION Negative Normal Negative [facility] Comment on above: Order Comment: Speci men Type: BLOOD SPECIMENOrdering Facility: [facility] Address: [address] [place] [address] Result Comment: The following results were obtained with [employer] R h-tTG IgA SAL[place]OR.???R h-tTG IgA values obtained with different manufacturers' assay methods may not be used interchangeably. The magnitude of the reported IgA levels cannot be corelated to an endpoint???concentration.This is used as an aid in diagnosis of celiac disease. Clinical correlation is required. Performed By: #### L [id number] ####[facility] LABCLIA [id number] [place] [address] [place] tTG IgA Qn (S) <2 Normal <4 [facility] Comment on above: Order Comment: Speci men Type: BLOOD SPECIMENOrdering Facility: [facility] Address: [address] [place] [address] Performed By: #### L [id number] ####[facility] LABCLIA [id number] [place] [address] [place] CRP SerPl-mCncon 04-20-2024 CRP [Mass/Vol] 8.4 mg/dL High <0.9 [facility] Comment on above: Order Comment: Speci men Type: BLOOD SPECIMENOrdering Facility: [facility] Address: [address] [place] [address] Performed By: #### 1 988-5, 35879-2, 3034-6, 41209-1 ####[facility] LABCLIA [id number] [place] [id number] [place] Calprotectin (Stl) [Mass/Mas s]on 04-20-2024 CALPROTECTIN, FECAL QUANTITATIVE 99.0 ug/g High <50 [facility] Comment on above: Order Comment: Speci men Type: STOOL SPECIMENOrdering Facility: [facility] Address: [address] [place] [address] Performed By: #### 5 4067-4, 18652-1, PANCEF ####[facility] LABCLIA [id number] [place] [address] [place] Cobalamin (Vitamin B12) [Mas s/Vol]on 04-20-2024 Interpretation and review of laboratory results Abnormal [facility] Comprehensive metabolic 2000 panelon 04-20-2024 Albumin [Mass/Vol] 3.8 g/dL Low 3.9 - 4.9 g/dL [facility] ALP [Catalytic activity/Vol] 141 U/L High 38 - 113 U/L [facility] ALT [Catalytic activity/Vol] 14 U/L 10 - 54 U/L [facility] Anion gap [Moles/Vol] 15 mmol/L 8 - 15 mmol/L [facility] AST [Catalytic activity/Vol] 27 U/L 14 - 40 U/L [facility] Bilirubin [Mass/Vol] 0.9 mg/dL 0.2 - 1 .3 mg/dL [facility] Calcium [Mass/Vol] 9.1 mg/dL 8.5 - 10. 2 mg/dL [facility] Chloride [Moles/Vol] 101 mmol/L 98 - 10 7 mmol/L [facility] CO2 [Moles/Vol] 24 mmol/L 22 - 30 mmol/L [facility] Creatinine [Mass/Vol] 1.23 mg/dL High 0.73 - 1.22 mg/dL [facility] GFR/1.73 sq M.predicted among non-blacks MDRD (S/P/Bld) [Vol rate/Area] 62 mL/min/{1.73_m2} - PINF [facility] Comment on above: Estimated Glomerular [...] 105 mg/dL High 74 - 99 mg/dL [facility] Comment on above: The [place] Diabete s Association (ADA) provides guidance for [...] Standards of Medical Care in Diabetes 2016, [place] Diabetes Association. Diabetes Care. 2016.39(Suppl 1). Potassium [Moles/Vol] 3.9 mmol/L 3.7 - 5.1 mmol/L [facility] Protein [Mass/Vol] 7.2 g/dL 6.3 - 8.0 g/dL [facility] Sodium [Moles/Vol] 140 mmol/L 136 - 144 mmol/L [facility] Urea nitrogen [Mass/Vol] 15 mg/dL 9 - 24 mg/dL [facility] Albumin [Mass/Vol] 3.8 g/dL Low 3.9-4.9 [facility] Comment on above: Order Comment: Alexandru campos Type: BLOOD SPECIMENOrdering Facility: [facility] Address: [address] [place] [address] Performed By: #### 1 988-5, 65276-8, 3034-6, 22715-3 ####[facility] LABCLIA [id number] [place] [address] [place] ALP [Catalytic activity/Vol] 141 U/L High 38-113 [facility] Comment on above: Order Comment: Alexandru campos Type: BLOOD SPECIMENOrdering Facility: [facility] Address: [address] [place] [id number] Performed By: #### 1 988-5, 18367-0, 3034-6, 80349-7 ####[facility] LABCLIA [id number] [place] [address] [place] ALT [Catalytic activity/Vol] 14 U/L Normal 10-54 [facility] Comment on above: Order Comment: Speci men Type: BLOOD SPECIMENOrdering Facility: [facility] Address: [address] [place] [address] Performed By: #### 1 988-5, 45953-7, 3034-6, 24459-0 ####[facility] LABCLIA [id number] [place] [address] [place] Anion gap [Moles/Vol] 15 mmol/L Normal 8-15 [facility] Comment on above: Order Comment: Speci men Type: BLOOD SPECIMENOrdering Facility: [facility] Address: [address] [place] [address] Performed By: #### 1 988-5, 32971-2, 3034-6, 21771-8 ####[facility] LABIA [id number] [place] [address] [place] AST [Catalytic activity/Vol] 27 U/L Normal 14-40 [facility] Comment on above: Order Comment: Speci men Type: BLOOD SPECIMENOrdering Facility: [facility] Address: [address] [place] [address] Performed By: #### 1 988-5, 79369-9, 3034-6, 42524-6 ####[facility] LABIA [id number] [place] [address] [place] Bilirubin [Mass/Vol] 0.9 mg/dL Normal 0.2-1.3 [facility] Comment on above: Order Comment: Speci men Type: BLOOD SPECIMENOrdering Facility: [facility] Address: [address] [place] [address] Performed By: #### 1 988-5, 10435-5, 3034-6, 43074-8 ####[facility] LABCLIA [id number] [place] [id number] [place] Calcium [Mass/Vol] 9.1 mg/dL Normal 8.5-10.2 [facility] Comment on above: Order Comment: Speci men Type: BLOOD SPECIMENOrdering Facility: [facility] Address: [address] [place] [address] Performed By: #### 1 988-5, 22741-0, 3034-6, 32276-8 ####[facility] LABIA [id number] [place] [address] [place] Chloride [Moles/Vol] 101 mmol/L Normal 98-107 [facility] Comment on above: Order Comment: Speci men Type: BLOOD SPECIMENOrdering Facility: [facility] Address: [address] [place] [address] Performed By: #### 1 988-5, 55390-7, 3034-6, 20210-8 ####[facility] LABIA [id number] [place] [address] [place] CO2 [Moles/Vol] 24 mmol/L Normal 22-30 [facility] Comment on above: Order Comment: Speci men Type: BLOOD SPECIMENOrdering Facility: [facility] Address: [address] [place] [address] Performed By: #### 1 988-5, 36808-6, 3034-6, 35176-9 ####[facility] LABIA [id number] [place] [address] [place] Creatinine [Mass/Vol] 1.23 mg/dL High 0.73-1.22 [facility] Comment on above: Order Comment: Speci men Type: BLOOD SPECIMENOrdering Facility: [facility] Address: [address] [place] [address] Performed By: #### 1 988-5, 42417-3, 3034-6, 20532-1 ####[facility] LABIA [id number] [place] [id number] [place] Creatinine and Glomerular filtration rate.predicted panel (S/P/Bld) 62 mL/min/1.73m??? Normal >=60 [facility] Comment on above: Order Comment: Alexandru campos Type: BLOOD SPECIMENOrdering Facility: [facility] Address: [address] [place] [address] Result Comment: Kristel mated Glomerular Filtration Rate [...] actual GFR. Performed By: #### 1 988-5, 58313-3, 3034-6, 91892-3 ####[facility] LABIA [id number] [place] [id number] [place] Glucose [Mass/Vol] 105 mg/dL High 74-99 [facility] Comment on above: Order Comment: Alexandru campos Type: BLOOD SPECIMENOrdering Facility: [facility] Address: [address] [place] [address] Result Comment: The [place] Diabetes Association (ADA) provides guidance for cutoff [...] Standards of Medical Care in Diabetes 2016, [place] Diabetes Association. Diabetes Care. 2016.39(Suppl 1). Performed By: #### 1 988-5, 51303-4, 3034-6, 42714-6 ####[facility] LABCLIA [id number] [place] [id number] [place] Potassium [Moles/Vol] 3.9 mmol/L Normal 3.7-5.1 [facility] Comment on above: Order Comment: Speci men Type: BLOOD SPECIMENOrdering Facility: [facility] Address: [address] [place] [address] Performed By: #### 1 988-5, 59049-0, 3034-6, 14749-7 ####[facility] LABIA [id number] [place] [address] [place] Protein [Mass/Vol] 7.2 g/dL Normal 6.3-8.0 [facility] Comment on above: Order Comment: Speci men Type: BLOOD SPECIMENOrdering Facility: [facility] Address: [address] [place] [address] Performed By: #### 1 988-5, 11563-7, 3034-6, 94331-7 ####[facility] LABIA [id number] [place] [address] [place] Sodium [Moles/Vol] 140 mmol/L Normal 136-144 [facility] Comment on above: Order Comment: Speci men Type: BLOOD SPECIMENOrdering Facility: [facility] Address: [address] [place] [address] Performed By: #### 1 988-5, 50106-0, 3034-6, 06937-1 ####[facility] LABIA [id number] [place] [id number] [place] Urea nitrogen [Mass/Vol] 15 mg/dL Normal 9-24 [facility] Comment on above: Order Comment: Speci men Type: BLOOD SPECIMENOrdering Facility: [facility] Address: [address] [place] [address] Performed By: #### 1 988-5, 56160-7, 3034-6, 38570-3 ####[facility] LABIA [id number] [place] [address] [place] G lamblia+Cryptosp Ag Stl Ql IAon 04-20-2024 G. lamblia+Cryptosporidiu m sp Ag IA Ql (Stl) CRYPTOSPORIDIUM ANTIGEN BY EIA: Negative for Cryptosporidium by EIA. GIARDIA ANTIGEN BY EIA: Negative for Giardia lamblia by EIA. Normal [facility] Comment on above: Performed By: #### 7 9390-1, 11982-5 ####[facility] [id number] [place] [address] [place] Gastrointestinal pathogens i dentified BRYN+probe Nom (Stl)on 04-20-2024 Campylobacter sp DNA BRYN+probe Nom (Unsp spec) Not detected Normal Not Detected [facility] Comment on above: Order Comment: Speci men Type: STOOL SPECIMENOrdering Facility: [facility] Address: [address] [place] [address] Performed By: #### 7 9390-1, 79826-3 ####[facility] [id number] [place] [address] [place] Salmonella sp DNA BRYN+probe Ql (Unsp spec) Not detected Normal Not Detected [facility] Comment on above: Order Comment: Speci men Type: STOOL SPECIMENOrdering Facility: [facility] Address: [address] [place] [address] Performed By: #### 7 9390-1, 56468-0 ####[facility] LABIA [id number] [place] [address] [place] Shiga toxin stx gene BRYN+probe Nom (Unsp spec) Not detected Normal Not Detected [facility] Comment on above: Order Comment: Speci men Type: STOOL SPECIMENOrdering Facility: [facility] Address: [address] [place] [address] Performed By: #### 7 9390-1, 71444-7 ####[facility] [id number] [place] [address] [place] Shigella sp DNA BRYN+probe Ql (Unsp spec) Not detected Normal Not Detected [facility] Comment on above: Order Comment: Speci men Type: STOOL SPECIMENOrdering Facility: [facility] Address: [address] [place] [address] Performed By: #### 7 9390-1, 85301-1 ####[facility] [id number] [place] [address] [place] HBV surface Ag Ql (S)on Interpretation and review of laboratory results Normal [facility] HBV surface Ag Ser Qlon HBV surface Ag Ql (S) Negative Normal Negative [facility] Comment on above: Order Comment: Speci men Type: BLOOD SPECIMENOrdering Facility: [facility] Address: [address] [place] [address] Performed By: #### 5 195-3 ####[facility] [id number] [place] [address] [place] IgA SerPl-mCncon 04-20-2024 IgA [Mass/Vol] 282 mg/dL Normal 70-400 [facility] Comment on above: Order Comment: Speci men Type: BLOOD SPECIMENOrdering Facility: [facility] Address: [address] [place] [address] Performed By: #### 2 458-8 ####[facility] [id number] [place] [address] [place] Iron and Iron binding capaci ty panelon 04-20-2024 Iron [Mass/Vol] 26 ug/dL Low 41 - 186 ug/dL [facility] Iron binding capacity [Mass/Vol] 256 ug/dL 232 - 386 ug/dL [facility] Iron/TIBC [Molar ratio] 10.2 % Low 15.0 - 57.0 % [facility] Iron [Mass/Vol] 26 ug/dL Low 41-186 [facility] Comment on above: Order Comment: Speci men Type: BLOOD SPECIMENOrdering Facility: [facility] Address: [address] [place], [place] [address] Performed By: #### 1 988-5, 33361-2, 3034-6, 02888-7 ####[facility] LABCLIA [id number] [place] [id number] [place] Iron binding capacity [Mass/Vol] 256 ug/dL Normal 232-386 [facility] Comment on above: Order Comment: Speci men Type: BLOOD SPECIMENOrdering Facility: [facility] Address: [address] [place] [address] Performed By: #### 1 988-5, 54347-6, 3034-6, 35309-5 ####[facility] LABCLIA [id number] [place] [id number] [place] Iron/TIBC [Molar ratio] 10.2 % Low 15.0-57.0 [facility] Comment on above: Order Comment: Speci men Type: BLOOD SPECIMENOrdering Facility: [facility] Address: [address] [place] [address] Performed By: #### 1 988-5, 11626-4, 3034-6, 34593-6 ####[facility] LABCLIA [id number] [place] [id number] [place] Laboratory - Chemistry and C hemistry - challengeon 04-20-2024 CRP [Mass/Vol] 8.4 mg/dL High NINF - 0.9 mg/dL [facility] Transferrin [Mass/Vol] 209 mg/dL 200 - 360 mg/dL [facility] 25-hydroxyvitamin D3 [Mass/Vol] 36.6 ng/mL 31.0 - 80.0 ng/mL [facility] Comment on above: Classification of 25 [place] Vitamin D status: Deficiency/Insufficiency: < or = 30 ng/ml. Sufficiency/Optimal Levels: 31-80 ng/mL Toxicity: > 100 ng/mL. Test performed by chemiluminescent immunoassay. Cobalamin (Vitamin B12) [Mass/Vol] 1458 pg/mL High 232 - 1245 pg/mL [facility] Laboratory - Microbiology an d Antimicrobial susceptibilityon 04-20-2024 C. difficile toxin genes BRYN+probe Ql (Stl) Negative Negative for C. difficile toxin by PCR [facility] HBV surface Ag Ql (S) Negative Negative [facility] No Panel Informationon 04-20 Interpretation and review of laboratory results Abnormal [facility] PANC ELASTASE, FECALon 04-20 ELASTASE INTERPRETATION Normal Normal Normal [facility] Comment on above: Order Comment: Speci men Type: STOOL SPECIMENOrdering Facility: [facility] Address: [address] [place] [address] Performed By: #### 5 4067-4, 45252-1, PANCEF ####[facility] LABIA [id number] [place] [address] [place] ELASTASE-1 CONCENTRATION 553 ug/g Normal >=200 [facility] Comment on above: Order Comment: Speci beth Type: STOOL SPECIMENOrdering Facility: [facility] Address: [address] [place] [address] Result Comment: Inte rpretation:<100 ug/g: Severe Exocrine Pancreatic [id number] ug/g: Mild to Moderate Exocrine Pancreatic Insufficiency>=200 ug/g: Normal Performed By: #### 5 4067-4, 34759-3, PANCEF ####[facility] LABIA [id number] [place] [address] [place] Transferrin SerPl-mCncon Transferrin [Mass/Vol] 209 mg/dL Normal 200-360 [facility] Comment on above: Order Comment: Speci men Type: BLOOD SPECIMENOrdering Facility: [facility] Address: [address] [place] [address] Performed By: #### 1 988-5, 67304-1, 3034-6, 49192-2 ####[facility] LABCLIA [id number] [place] [id number] [place] Transferrin [Mass/Vol]on Interpretation and review of laboratory results Normal [facility] Vit B12 SerPl-mCncon 024 Cobalamin (Vitamin B12) [Mass/Vol] 1458 pg/mL High 232-1245 [facility] Comment on above: Order Comment: Speci men Type: BLOOD SPECIMENOrdering Facility: [facility] Address: [address] [place] [address] Performed By: #### 2 132-9 ####[facility] LABCLIA [id number] [place] [address] [place] GREY BY IFA SCREENOrdered By: Nathaly Black on 03-31-2024 Interpretation and review of laboratory results Normal [facility] Nuclear Ab Ql (S) Negative Negative [facility] Comment on above: Anti-nuclear antibod y test is used as an aid in diagnosis of systemic autoimmune diseases. Where positive and clinically warranted, follow-up using disease-specific testing is recommended. Low positive titers are not uncommon with advanced age, certain chronic infections, and malignancies among others. Test methodology: Indirect fluorescence immunoassay (IFA) using HEp-2 cells. [facility] ANTI NEUTRO CYTO ABon 2023 Interpretation (ANCA) Equivocal staining seen on the ethanol (indirect immunofluorescence screen) slide but negative results on follow up confirmatory testing. Anti-nuclear antibody test may be considered. Clinical correlation is required. [facility] Myeloperoxidase Ab Qn (S) NINF [facility] Neutrophil cytoplasmic Ab.classic IF Ql (S) Negative Negative [facility] Neutrophil cytoplasmic Ab.perinuclear IF Ql (S) Negative Negative [facility] Proteinase 3 Ab Qn (S) NINF [facility] Staff Review (ANCA) Reviewed by Sundar Hilario MD, PhD [facility] This test is used as an aid in diagnosis of patients with autoimmune vasculitides. The final interpretation should be done in conjunction with ANCA test results and clinical correlation. [facility] BLOOD TB SCREENon 03-31-2024 M. tuberculosis tuberculin stim IFN-g Ql (Bld) Negative [facility] Mitogen minus Nil 1.71 - PINF [facility] TB Gamma Interpretation Infection with M. tuberculosis complex is unlikely. If latent tuberculosis infection is highly suspected, a negative result does not rule out the infection. Specimens from immunocompromised patients and those <5 years of age may show false negative results. In case of a contact investigation, please repeat 8-12 weeks after a known exposure. [facility] TB Nil 0.00 [facility] TB1 Ag minus Nil [facility] TB2 Ag minus Nil 0.00 [facility] CRITHIDIA LUCILIAEOrdered By : Sherie Vásquez on 03-31-2024 DNA double strand Ab IF Crithidia luciliae Ql (S) Negative Negative [facility] Comment on above: Crithidia luciliae [...] results Normal [facility] C-REACTIVE PROTEINon 024 CRP [Mass/Vol] 2.1 mg/dL High NINF - 0.9 mg/dL [facility] C3 COMPLEMENTon 03-30-2024 Complement C3 [Mass/Vol] 168 mg/dL High 86 - 166 mg/dL [facility] C4 COMPLEMENTon 03-30-2024 Complement C4 [Mass/Vol] 42 mg/dL 13 - 46 mg/dL [facility] CBC W Auto Differential pane l (Bld)on 03-30-2024 Basophils (Bld) [#/Vol] 0.04 10*3/uL [facility] Basophils/100 WBC (Bld) 0.6 % [facility] Differential cell count method Nom (Bld) Auto [facility] Eosinophils (Bld) [#/Vol] [facility] Eosinophils/100 WBC (Bld) 0.0 % [facility] Erythrocyte distribution width (RBC) [Ratio] 15.6 % High 11.5 - 15.0 % [facility] Hematocrit (Bld) [Volume fraction] 38.4 % Low 39.0 - 51.0 % [facility] Hemoglobin (Bld) [Mass/Vol] 11.9 g/dL Low 13.0 - 17.0 g/dL [facility] Immature granulocytes (Bld) [#/Vol] NINF [facility] Immature granulocytes/100 WBC (Bld) 0.3 % [facility] Interpretation and review of laboratory results Abnormal [facility] Lymphocytes (Bld) [#/Vol] 1.21 10*3/uL [facility] Lymphocytes/100 WBC (Bld) 17.7 % [facility] MCH (RBC) [Entitic mass] 29.7 pg 26.0 - 34.0 pg [facility] MCHC (RBC) [Mass/Vol] 31.0 g/dL 30.5 - 36.0 g/dL [facility] MCV (RBC) [Entitic vol] 95.8 fL 80.0 - 100.0 fL [facility] Monocytes (Bld) [#/Vol] 0.80 10*3/uL NINF [facility] Monocytes/100 WBC (Bld) 11.7 % [facility] Neutrophils (Bld) [#/Vol] 4.77 10*3/uL [facility] Neutrophils/100 WBC (Bld) 69.7 % [facility] Nucleated RBC (Bld) [#/Vol] NINF [facility] Nucleated RBC/100 WBC (Bld) [Ratio] 0.0 % /100 WBC [facility] Platelet mean volume (Bld) [Entitic vol] 10.7 fL 9.0 - 12.7 fL [facility] Platelets (Bld) [#/Vol] 243 10*3/uL [facility] RBC (Bld) [#/Vol] 4.01 10*6/uL Low 4.20 - 6.0 0 m/uL [facility] WBC (Bld) [#/Vol] 6.84 10*3/uL [facility] CK [Catalytic activity/Vol]o n 03-30-2024 Interpretation and review of laboratory results Normal [facility] CREATINE KINASE/CKon 024 CK [Catalytic activity/Vol] 56 U/L 51 - 298 U/L [facility] Complement C4 [Mass/Vol]on 1 Interpretation and review of laboratory results Normal [facility] Comprehensive metabolic 2000 panelon 03-30-2024 Albumin [Mass/Vol] 4.1 g/dL 3.9 - 4.9 g/dL [facility] ALP [Catalytic activity/Vol] 121 U/L High 38 - 113 U/L [facility] ALT [Catalytic activity/Vol] 13 U/L 10 - 54 U/L [facility] Anion gap [Moles/Vol] 10 mmol/L 8 - 15 mmol/L [facility] AST [Catalytic activity/Vol] 22 U/L 14 - 40 U/L [facility] Bilirubin [Mass/Vol] 0.7 mg/dL 0.2 - 1 .3 mg/dL [facility] Calcium [Mass/Vol] 9.0 mg/dL 8.5 - 10. 2 mg/dL [facility] Chloride [Moles/Vol] 105 mmol/L 98 - 10 7 mmol/L [facility] CO2 [Moles/Vol] 27 mmol/L 22 - 30 mmol/L [facility] Creatinine [Mass/Vol] 1.26 mg/dL High 0.73 - 1.22 mg/dL [facility] GFR/1.73 sq M.predicted among non-blacks MDRD (S/P/Bld) [Vol rate/Area] 60 mL/min/{1.73_m2} - PINF [facility] Comment on above: Estimated Glomerular [...] [Mass/Vol] 95 mg/dL 74 - 99 mg/dL [facility] Comment on above: The [place] Diab[employer] Association (ADA) provides guidance for [...] Standards of Medical Care in Diabetes 2016, [place] [employer] Association. Diabetes Care. 2016.39(Suppl 1). Potassium [Moles/Vol] 4.1 mmol/L 3.7 - 5.1 mmol/L [facility] Protein [Mass/Vol] 7.0 g/dL 6.3 - 8.0 g/dL [facility] Sodium [Moles/Vol] 142 mmol/L 136 - 144 mmol/L [facility] Urea nitrogen [Mass/Vol] 17 mg/dL 9 - 24 mg/dL [facility] No Panel Informationon 03-30 Interpretation and review of laboratory results Abnormal [facility] PROTEIN / CREATININE RATIOon 03-30-2024 Protein/Creatinine (U) [Mass ratio] 0.17 mg/mg High NINF - 0.15 mg/mg [facility] Comment on above: Adult Proteinuria [...] [Mass/Vol] 34.5 mg/dL 20.0 - 300.0 mg/dL [facility] Interpretation and review of laboratory results Abnormal [facility] Protein (U) [Mass/Vol] 6 mg/dL 0 - 2 0 mg/dL [facility] Urinalysis complete panel (U )on 03-30-2024 Bacteria LM.HPF (Urine sed) [#/Area] Negative Negative /HPF [facility] Bilirubin Ql (U) Negative Negative [facility] d [facility] Clarity (Unsp spec) Clear Clear [facility] Color (U) Yellow Yellow [facility] Epithelial cells LM.HPF (Urine sed) [#/Area] None Seen /HPF [facility] Glucose Test strip (U) [Mass/Vol] Negative Negative [facility] Hemoglobin Ql (U) Negative Negative [facility] Hyaline casts (Urine sed) [#/Area] 4-10 /LPF Abnormal 0 /LPF [facility] Interpretation and review of laboratory results Abnormal [facility] Ketones Ql (U) Negative Negative [facility] Leukocyte esterase Test strip Ql (U) Negative Negative [facility] Nitrite Ql (U) Negative Negative [facility] pH (U) 6.5 [pH] NINF - 8.5 [facility] Protein (U) [Mass/Vol] Negative Negative Cl [facility] RBC LM.HPF (Urine sed) [#/Area] 0-2 /HPF 0-2 /HPF [facility] Specific gravity (U) [Rel density] 1.010 1.005 - 1.030 [facility] Urobilinogen Ql (U) 0.2 EU/dL 0.2-1.0 EU/dL [facility] WBC LM.HPF (Urine sed) [#/Area] 0-5 /HPF 0-5 /HPF [facility] This test was develo ped and its performance characteristics determined by [facility]'s Amna Jonnathan [facility] Pathology and Laboratory Medicine Walker ([facility]). It has not been cleared or approved by the FDA. [facility] is regulated under CLIA as qualified to perform high-complexity testing. This test is used for clinical purposes. It should not be regarded as investigational or for research. [facility] ECHOon 03-26-2024 CONCLUSIONS: - Exam indication: Pericardial Disease - The left ventricle is normal in size. Left ventricular systolic function is normal. EF = 55 5% (visual est.) - The right ventricle is normal in size. Right ventricular systolic function is normal. - The patient has not had a prior CC echocardiographic exam for comparison. * * * Final * * * [facility] Echocardiography Report: Transthoracic Echo [facility] Date of service: 03/26/2024 2:34:18 PM Ordering physician: LOUISE CESAR Indication: Pericardial Disease Technologist: Marlyn Thomas [facility] and staff Interpreting physician: Romario Lea MD [...] septum. PERICARDIUM There is no pericardial effusion. [facility] Echocardiography Echocardiography Rep ort: Transthoracic Echo [facility] Date of service: 03/26/2024 2:34:18 PM Ordering physician: LOUISE CESAR Indication: Pericardial Disease Technologist: Marlyn Thomas [facility] and staff Interpreting physician: Romario Lea MD [...] * * Final * * * [facility] [employer] [facility] : [id number] Normal [facility] LVEF ECHOon 03-26-2024 LV Ejection Fraction 55 % [facility] Comment on above: (visual est.) EF > 5 2 An LV Ejection Fraction of > 50% is normal No Panel Informationon 03-26 [facility] CNOVon 03-17-2024 CNOV Office Visit (THORHL ) -- SAV RAYMUNDO ([id number]) 1950 M Date Time Provider Department 03/17/24 1:30 PM RUMA OSHEA During your visit today, we recorded the following information about you: Temperature Pulse Respiration Blood pressure 97.3 degrees 88/minute 16/minute 132/78 Weight Height 94.3 kg 1.778 m Ruma Oshea PA-C 03/17/2024 2:26 PM Signed [facility] - OUTPATIENT THORACIC SURGERY CLINIC NOTE PT NAME: Sav Cantu Kimberly [facility] NO: [id number] THORACIC SURGEON: Ronaldo Flood M.D. 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 Right pleura, biopsy: - Chronic pleuritis with mesothelial hyperplasia (see comment). B. Right pleura, biopsy: - Acute organizing and chronic pleuritis (see comment). CT/ 11/22/2023 Diagnosis Comment A. The biopsy contains [...] reactive proliferation. D[facility]. 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 He was hospitalized 12/20/23 for anasarca, possible autoimmune disease, recurrent pleural effusion. Imaging did not reveal any acute findings. Patient was admitted to [facility] and started on lasix drip, improving anasarca and pleural effusion. Pleurx catheter was drained daily with significantly decreasing output [phone]. He was worked up for an autoimmune [...] presents to clinic today for postoperative visit. [facility] RN called in 03/03 reporti (more content not included)... Normal [facility] Office Visit (MOPL) -- SAV RAYMUNDO ([id number]) 1950 M Date Time Provider Department 03/17/24 [...] seen by Pulmonary Doctor? Dr. Clemente in [facility]. Outside of [facility]. Is Dr. Cesar on Care Team as Embedded Software Architect? no Meds reviewed - Refills pended?no Since last seen Have you had any resp illnessses, COVID, exacerbations or recent visits to ER?hospital/Urgent-Care? [place] December 19 x 1 week, Vaccines: Immunization History Administered Date(s) Administered COVID-19 original vaccine, age 12+ yr, monovalent ([employer] - PURPLE TOP) 08/15/2020 08/22/2020 09/13/2020 05/10/2021 influenza (aIIV3) vaccine, age 65+ yr, trivalent, PF (FLUAD) 05/09/2020 pneumococcal conjugate (PCV13) vaccine, 13 valent (PREVNAR 13) 11/26/2016 pneumococcal polysaccharide (PPV23) vaccine, 23 valent (PNEUMOVAX 23) 02/03/2018 tetanus diphtheria (Td) vaccine, age 7+ yr, 5 Lf tetanus, PF (TENIVAC) 06/04/2018 08/30/2018 zoster (RZV) vaccine, recombinant (SHINGRIX) 08/30/2018 Modified Medical Research [place] Dyspnea Scale (MMRC) I stop for breath [...] year old male who presents to the [facility] Respiratory Walker. Consultation requested by Dr. Hopper and Dr. Ronaldo Flood. My final recommendations/evaluation will be communicated back to the requesting physician by way of shared medical record or letter via [place] mail. This note was partially created using [employer] Voice recognition software and is inherently subject to errors including those of syntax and ?sound-alike? substitutions which may escape proofreading. In such instances, original meaning may be extrapolated by contextual derivation. HPI on March 17, 2024: Sav Raymundo is a gentleman in his 70s, presenting to the pulmonary clinic, for chronic cough and recurrent right-sided pleural effusion s/p R-VATS pleural biopsy, right airframe and power plant mechanic and doxycycline pleurodesis, right Pleurx catheter insertion, on 12/10/2023. Mr. Kumar presents with an interesting history. He is a semiretired gentleman from the [facility], with virtually no past medical history, very [...] and he was referred to a local process plant operator. He underwent thoracentesis several times, each time pleural fluid analysis showed exudative fluid. CT scan was obtained locally which did not reveal much except pleural effusion. CT scan also shows pericardial effusion. He was then referred by his local process plant operator to [facility] for a pleurodesis. In November 2023, he underwent VATS pleurodesis (mechanical and doxycycline), with pleural biopsy, and the Pleurx catheter was also placed. Analysis of the pleural fluid and biopsies of the pleura showed acute and chronic pleuritis with organization, but no malignancy. We do not have pleural fluid chemical or hematological analysis done in [facility], but cytology was negative for malignant cells. He was discharged with Pleurx catheter, and and has been draining pleural fluid about 500 to 800 mL every other day. And his dry cough has also been persistent. In December 2023, he was sent to [facility] after seeing thoracic surgery ADRIENNE for anasarca, and was admitted. His abdomen and subcutaneous tissues especially in his legs were swollen, no ascites found, but significant skin edema including blisters were seen. He improved with Lasix drip, was evaluated by rheumatology, and so far his sero (more content not included)... Normal [facility] CT CHEST W IVCONon 4 CT CHEST [...] on Mar 21 2024 4:33PM EST [id number] [facility] NITRIC OXIDE, EXHALEDon 10-0 Chelsy Hills, COAL PIPELINE OPERATOR 03/17/2024 8:16 AM RESPIRATORY THERAPY ORAL EXHALED [...] Oxide (ppb) 03/17/2024 13.0 NAME: Chelsy Hills, COAL PIPELINE OPERATOR PATIENT NAME: Sav Raymundo DATE: March 17, 2024 TIME: 8:16 AM [facility] No Panel Informationon 03-17 DLCO (ml/min/mmHg) 21.86 ml/min/mmHg [facility] DLCO LLN (ml/min/mmHg) 15.50 ml/min/mmHg [facility] DLCO PREDICTED (ml/min/mmHg) 25.43 ml/min/mmHg [facility] DLCO ULN (ml/min/mmHg) 35.37 ml/min/mmHg [facility] DLCO/VA (ml/min/mmHg/L) 4.85 ml/min/mmHg /L [facility] DLCO/VA PREDICTED (ml/min/mmHg/L) 3.84 ml/min/mmHg /L [facility] DLCOcor PREDICTED (ml/min/mmHg) 25.43 ml/min/mmHg [facility] ERV BOX (L) 0.01 L [facility] ERV PREDICTED (L) 1.32 L/S [facility] FRC Box (L) 2.34 L [facility] IC BOX (L) 2.71 L [facility] IC PREDICTED (L) 2.65 L/S [facility] RV Box (L) 2.07 L [facility] RV Box PREDICTED (L) 2.51 L [facility] RV/TLC Box (%) 44 % [facility] RV/TLC Box PREDICTED (%) 37 % [facility] SVC LLN (L) 2.94 L/S [facility] SVC PREDICTED (L) 3.97 L/S [facility] SVC ULN (L) 5.01 L/S [facility] TLC Box (L) 4.72 L [facility] TLC Box PREDICTED (L) 7.[address] 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 Lung Volumes repeatable x 3. //MW IMPRESSION: Decrease in TLC indicates restriction. The diffusing capacity is normal. Electronically Signed On 03-17-2024 14:02:07 EDT by Kathy Hartman MD ID: [id number] Name: SAV RAYMUNDO Race: White Ht: 69.96 in Wt: 209.44 lbs Age: 74 Gender: Male : 1950 Dx: Idiopathic interstitial pulmonary disease_ Smoking Hx: Non-smoker Doctor: LOUISE CESAR Test Date: 03/17/2024 Site: [facility] Tech: Was, Bryn PRE-BRONCH [...] repeatable x 3. // PULMONARY FUNCTION LAB [facility] XR CHEST 2V FRONTAL/LATon XR [...] noted slightly increased. Right-sided Pleurx catheter present. 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: PSCAc Transcribe Date/Time: Mar 19 2024 4:42P Dictated by : KALEY CHAMBERS MD This examination was interpreted and the report reviewed and electronically signed by: KALEY CHAMBERS MD on Mar 19 2024 4:43PM EST [id number] [facility] XR Chest PA and Lateralon IMPRESSION: Interval decrease in size of small right-sided pleural effusion with adjacent atelectasis/consolidations . Transcribed Using Voice Recognition Transcribe Date/Time: Feb 05 2024 12:51P Dictated by: SHAWN TALAVERA MD This examination was interpreted and the report reviewed and electronically signed by: SHAWN TALAVERA MD on Feb 05 2024 12:52PM [facility] * * *Final Report* * [...] changes are present within the thoracic spine. [facility] Provider, Migel Hudson - 02/05/2024 [...] MD on Feb 05 2024 12:52PM EST [facility] XR Chest PA and LateralOrder ed By: Ccf Provider on 02-05-2024 [facility] CNOVon 02-04-2024 CNOV Office Visit (THORHL ) -- SAV RAYMUNDO ([id number]) 1950 M Date Time Provider Department 02/04/24 1:30 PM TITA LANDRY During your visit today, we recorded the following information about you: Temperature Pulse Respiration Blood pressure 97.1 degrees 75/minute 16/minute 120/69 Weight Height 90.7 kg 1.829 m Tita Landry APRN.PRODUCT DEMONSTRATOR 02/05/2024 4:19 PM Signed Heart, Vascular and Thoracic Walker DEPARTMENT OF THORACIC SURGERY OUTPATIENT VISIT DATE February 04, 2024 OUTPATIENT VISIT TYPE ESTABLISHED PT NAME: Adams Pepe [facility] NO: [id number] THORACIC SURGEON: Ronaldo Flood M.D. DATE OF SERVICE: 02/04/2024 PRINCIPAL DX: Pleural Effusion SURGICAL HX 11/20/2023: R VATS pleural biopsy, right airframe and power plant mechanic and doxycycline pleurodesis, right Pleurx catheter insertion, right 20Fr chest tube insertion Surgical Pathology 11/20/2023: FINAL DIAGNOSIS A. Right pleura, biopsy: - Chronic pleuritis with mesothelial hyperplasia (see comment). B. Right pleura, biopsy: - Acute organizing and chronic pleuritis (see comment). CT/ 11/22/2023 Diagnosis Comment A. The biopsy contains [...] patient underwent R VATS pleural biopsy, right airframe and power plant mechanic and doxycycline pleurodesis, right Pleurx catheter insertion, right 20Fr chest tube insertion. He was hospitalized 12/20/23 for anasarca, possible autoimmune disease, recurrent pleural effusion. Imaging did not reveal any acute findings. Patient was admitted to [facility] and started on lasix drip, improving anasarca and pleural effusion. Pleurx catheter was drained daily with significantly decreasing output [phone]. He was worked up for an autoimmune [...] suspicious rashes (more content not included)... Normal [facility] XR CHEST 2V FRONTAL/LATon XR CHEST 2V [...] on Feb 05 2024 12:52PM EST [id number] [facility] XR Chest PA and Lateralon Radiology Study observation (narrative) [facility] CNOVon 01-06-2024 CNOV Office Visit ([facility] ) -- SAV RAYMUNDO ([id number]) 1950 M Date Time Provider Department 01/06/24 2:00 PM RUMA OSHEA During your visit today, we recorded the following information about you: Temperature Pulse Respiration Blood pressure 97.2 degrees 80/minute 16/minute 137/73 Weight Height 97.3 kg 1.829 m Ruma Oshea PA-C 01/06/2024 2:58 PM Signed [facility] - OUTPATIENT THORACIC SURGERY CLINIC NOTE PT NAME: Sav Raymundo [facility] NO: [id number] THORACIC SURGEON: Ronaldo Flood M.D. DATE OF SERVICE: 01/06/2024 PRINCIPAL DX: Pleural Effusion SURGICAL HX 11/20/2023: R VATS pleural biopsy, right airframe and power plant mechanic and doxycycline pleurodesis, right Pleurx catheter [...] any acute findings. Patient was admitted to [facility] and started on lasix drip, improving anasarca and pleural effusion. Pleurx catheter was drained daily with significantly decreasing output [phone]. He was worked up for an autoimmune [...] clinic. Patient does have follow up with steam conditioner operator today and process plant operator next week. Will fax over recent medical information to process plant operator. Patient also going on a bus trip [...] with pm (more content not included)... Normal [facility] XR CHEST 2V FRONTAL/LATon XR CHEST 2V [...] Jan 08 2024 9:10PM EST [id number] Normal [facility] Basic metabolic 2000 panelon 12-26-2023 Anion gap [Moles/Vol] 14 mmol/L Normal 8-15 [facility] Comment on above: Order Comment: Speci men Type: BLOOD SPECIMEN Ordering Facility: [facility] Address: [address] [place] [address] Performed By: #### 2 4321-2 #### [facility] CLIA [id number] [address] [place] [address] [place] Calcium [Mass/Vol] 9.0 mg/dL Normal 8.5-10.2 [facility] Comment on above: Order Comment: Speci men Type: BLOOD SPECIMEN Ordering Facility: [facility] Address: [address] [place] [address] Performed By: #### 2 4321-2 #### [facility] CLIA [id number] [address] [place] [address] [place] Chloride [Moles/Vol] 101 mmol/L Normal 98-107 [facility] Comment on above: Order Comment: Speci men Type: BLOOD SPECIMEN Ordering Facility: [facility] Address: [address] [place] [address] Performed By: #### 2 4321-2 #### [facility] CLIA [id number] [address] [place] [address] [place] CO2 [Moles/Vol] 23 mmol/L Normal 22-30 [facility] Comment on above: Order Comment: Alexandru campos Type: BLOOD SPECIMEN Ordering Facility: [facility] Address: [address] [place] [address] Performed By: #### 2 4321-2 #### [facility] CLIA [id number] [address] [place] [address] [place] Creatinine [Mass/Vol] 0.96 mg/dL Normal 0.73-1.22 [facility] Comment on above: Order Comment: Alexandru men Type: BLOOD SPECIMEN Ordering Facility: [facility] Address: [address] [place] [address] Performed By: #### 2 4321-2 #### [facility] CLIA [id number] [address] [place] [address] [place] Creatinine and Glomerular filtration rate.predicted panel (S/P/Bld) 84 mL/min/1.73m??? Normal >=60 [facility] Comment on above: Order Comment: Alexandru campos Type: BLOOD SPECIMEN Ordering Facility: [facility] Address: [address] [place] [address] Result Comment: Kristel mated Glomerular Filtration Rate [...] GFR. Performed By: #### 2 4321-2 #### [facility] CLIA [id number] [address] [place] [address] [place] Glucose [Mass/Vol] 152 mg/dL High 74-99 [facility] Comment on above: Order Comment: Alexandru campos Type: BLOOD SPECIMEN Ordering Facility: [facility] Address: [address] [place] [address] Result Comment: The [place] Diabetes Association (ADA) provides guidance for cutoff [...] Standards of Medical Care in Diabetes 2016, [place] [employer] Association. Diabetes Care. 2016.39(Suppl 1). Performed By: #### 2 4321-2 #### [facility] CLIA [id number] [address] [place] [address] [place] Potassium [Moles/Vol] 4.1 mmol/L Normal 3.7-5.1 [facility] Comment on above: Order Comment: Alexandru campos Type: BLOOD SPECIMEN Ordering Facility: [facility] Address: [address] [place] [address] Performed By: #### 2 4321-2 #### [facility] CLIA [id number] [address] [place] [address] [place] Sodium [Moles/Vol] 138 mmol/L Normal 136-144 [facility] Comment on above: Order Comment: Alexandru campos Type: BLOOD SPECIMEN Ordering Facility: [facility] Address: [address] [place] [address] Performed By: #### 2 4321-2 #### [facility] CLIA [id number] [address] [place] [address] [place] Urea nitrogen [Mass/Vol] 19 mg/dL Normal 9-24 [facility] Comment on above: Order Comment: Alexandru campos Type: BLOOD SPECIMEN Ordering Facility: [facility] Address: [address] [place] [address] Performed By: #### 2 4321-2 #### [facility] CLIA [id number] [address] [place] [address] [place] CBC panel Auto (Bld)on 12-25 Erythrocyte distribution width (RBC) [Ratio] 14.8 % Normal 11.5-15.0 [facility] Comment on above: Order Comment: Speci men Type: BLOOD SPECIMEN Ordering Facility: [facility] Address: [address] [place] [address] Performed By: #### 5 8410-2 #### [facility] CLIA [id number] [address] [place] [address] [place] Hematocrit (Bld) [Volume fraction] 39.2 % Normal 39.0-51.0 [facility] Comment on above: Order Comment: Speci men Type: BLOOD SPECIMEN Ordering Facility: [facility] Address: [address] [place] [address] Performed By: #### 5 8410-2 #### [facility] CLIA [id number] [address] [place] [address] [place] Hemoglobin (Bld) [Mass/Vol] 12.5 g/dL Low 13.0-17.0 [facility] Comment on above: Order Comment: Speci men Type: BLOOD SPECIMEN Ordering Facility: [facility] Address: [address] [place] [address] Performed By: #### 5 8410-2 #### [facility] CLIA [id number] [address] [place] [address] [place] MCH (RBC) [Entitic mass] 29.6 pg Normal 26.0-34.0 [facility] Comment on above: Order Comment: Speci men Type: BLOOD SPECIMEN Ordering Facility: [facility] Address: [address] [place] [address] Performed By: #### 5 8410-2 #### [facility] CLIA [id number] [address] [place] [address] [place] MCHC (RBC) [Mass/Vol] 31.9 g/dL Normal 30.5-36.0 [facility] Comment on above: Order Comment: Speci men Type: BLOOD SPECIMEN Ordering Facility: [facility] Address: [address] [place] [address] Performed By: #### 5 8410-2 #### [facility] CLIA [id number] [address] [place] [address] [place] MCV (RBC) [Entitic vol] 92.9 fL Normal 80.0-100.0 [facility] Comment on above: Order Comment: Speci men Type: BLOOD SPECIMEN Ordering Facility: [facility] Address: [address] [place] [address] Performed By: #### 5 8410-2 #### [facility] CLIA [id number] [address] [place] [address] [place] Nucleated RBC (Bld) [#/Vol] 10*3/uL Normal <0.01 [facility] Comment on above: Order Comment: Speci men Type: BLOOD SPECIMEN Ordering Facility: [facility] Address: [address] [place] [address] Performed By: #### 5 8410-2 #### [facility] CLIA [id number] [address] [place] [address] [place] Platelet mean volume (Bld) [Entitic vol] 10.3 fL Normal 9.0-12.7 [facility] Comment on above: Order Comment: Speci men Type: BLOOD SPECIMEN Ordering Facility: [facility] Address: [address] [place] [address] Performed By: #### 5 8410-2 #### [facility] CLIA [id number] [address] [place] [address] [place] Platelets (Bld) [#/Vol] 218 10*3/uL Normal 150-400 [facility] Comment on above: Order Comment: Speci men Type: BLOOD SPECIMEN Ordering Facility: [facility] Address: [address] [place] [address] Performed By: #### 5 8410-2 #### [facility] CLIA [id number] [address] [place] [address] [place] RBC (Bld) [#/Vol] 4.22 10*6/uL Normal 4.20-6.00 [facility] Comment on above: Order Comment: Speci men Type: BLOOD SPECIMEN Ordering Facility: [facility] Address: [address] [place] [address] Performed By: #### 5 8410-2 #### [facility] CLIA [id number] [address] [place] [id number] [place] WBC (Bld) [#/Vol] 5.29 10*3/uL Normal 3.70-11.00 [facility] Comment on above: Order Comment: Speci men Type: BLOOD SPECIMEN Ordering Facility: [facility] Address: [address] [place] [address] Performed By: #### 5 8410-2 #### [facility] CLIA [id number] [address] [place] [id number] [facility] CNDSon 12-26-2023 CNDS HNO ID: [id number] Author: JOSE ANTONIO HOPPER MD Service: Family [...] was drained daily with significantly decreased amount [phone] mL. The electrolytes have been replaced daily. [...] for appointment?: Yes Jose Antonio Hopper MD [phone] [address] [facility] [address] PCP Requested Referral Additional Provider to Provider Information: No notes on file Treatment Team: Attending Provider: Jose Antonio Hopper MD Consulting: Yehuda Dial MD Transitions of Care Critical Issues: LAB MONITORING NEEDED: BMP,Magnesium on 01/02/2024 SPECIALIST FOLLOW-UP: Dr Dial on 01/06/2024 LABS AND PROCEDURES PENDING AT DISCHARGE: No pending results. FOLLOW-UP APPOINTMENTS ALREADY SCHEDULED WITH A [facility] PROVIDER: Future Appointments Date Time Provider Department Center 01/06/2024 1:15 PM XR [facility] 01/06/2024 2:00 PM Ruma Oshea PA-C [facility] Allergen Reactions Tramadol Mental Status Change DISCHARGE MEDICATION: Medication List START maryjane (more content not included)... [facility] NURSING PROGon 12-26-2023 NURSING PROG HNO ID: [id number] Author: ROJAS CLINE RN Service: Nursing Author Type: Registered Nurse Type: Nursing Progress Note Filed: 12/26/2023 18:03 Note Text: Patient given discharge paperwork. All question and concerns addressed. Patient transport home via family transport [facility] XR SINUS 3V PA/DAN/LATon 12-26-2023 XR SINUS [...] Dec 27 2023 8:21AM EST [id number] Normal [facility] Basic metabolic 2000 panelon 12-25-2023 Anion gap [Moles/Vol] 12 mmol/L Normal 8-15 [facility] Comment on above: Order Comment: Speci men Type: BLOOD SPECIMEN Ordering Facility: [facility] Address: [address] [place] [address] Performed By: #### M PO #### [facility] CLIA [id number] [address] [place] [address] Calcium [Mass/Vol] 9.0 mg/dL Normal 8.5-10.2 [facility] Comment on above: Order Comment: Speci men Type: BLOOD SPECIMEN Ordering Facility: [facility] Address: [address] [place] [address] Performed By: #### M PO #### [facility] CLIA [id number] [address] [place] [address] Chloride [Moles/Vol] 95 mmol/L Low 98-107 [facility] Comment on above: Order Comment: Speci men Type: BLOOD SPECIMEN Ordering Facility: [facility] Address: [address] [place] [address] Performed By: #### M PO #### [facility] CLIA [id number] [address] [place] [address] CO2 [Moles/Vol] 27 mmol/L Normal 22-30 [facility] Comment on above: Order Comment: Speci men Type: BLOOD SPECIMEN Ordering Facility: [facility] Address: [facility] [place] [address] Performed By: #### M PO #### [facility] CLIA [id number] [address] [place] [address] Creatinine [Mass/Vol] 1.07 mg/dL Normal 0.73-1.22 [facility] Comment on above: Order Comment: Speci men Type: BLOOD SPECIMEN Ordering Facility: [facility] Address: [address] [place] [address] Performed By: #### M PO #### [facility] CLIA [id number] [address] [place], [place] [address] Creatinine and Glomerular filtration rate.predicted panel (S/P/Bld) 74 mL/min/1.73m??? Normal >=60 [facility] Comment on above: Order Comment: Alexandru campos Type: BLOOD SPECIMEN Ordering Facility: [facility] Address: [address] [place] [address] Result Comment: Kristel adair Glomerular Filtration Rate [...] GFR. Performed By: #### M PO #### [facility] CLIA [id number] [address] [place], [place] [address] Glucose [Mass/Vol] 108 mg/dL High 74-99 [facility] Comment on above: Order Comment: Alexandur campos Type: BLOOD SPECIMEN Ordering Facility: [facility] Address: [address] [place] [address] Result Comment: The [place] Diabetes Association (ADA) provides guidance for cutoff [...] Standards of Medical Care in Diabetes 2016, [place] [employer]. Diabetes Care. 2016.39(Suppl 1). Performed By: #### M PO #### [facility] CLIA [id number] [address] [place] [address] Potassium [Moles/Vol] 3.7 mmol/L Normal 3.7-5.1 [facility] Comment on above: Order Comment: Alexandru campos Type: BLOOD SPECIMEN Ordering Facility: [facility] Address: [address] [place] [address] Performed By: #### M PO #### [facility] CLIA [id number] [address] [place] [address] Sodium [Moles/Vol] 134 mmol/L Low 136-144 [facility] Comment on above: Order Comment: Alexandru campos Type: BLOOD SPECIMEN Ordering Facility: [facility] Address: [address] [place] [address] Performed By: #### M PO #### [facility] CLIA [id number] [address] [place] [address] Urea nitrogen [Mass/Vol] 24 mg/dL Normal 9-24 [facility] Comment on above: Order Comment: Alexandru campos Type: BLOOD SPECIMEN Ordering Facility: [facility] Address: [address] [place] [address] Performed By: #### M PO #### [facility] CLIA [id number] [address] [place], [place] [address] CONSULTon 12-25-2023 CONSULT HNO ID: [id number] Author: YEHUDA DIAL MD Service: Rheumatology Author [...] underlying condition. The subject is admitted to [facility] for anasarca. In the past few weeks [...] seasonal allergi (more content not included)... Normal [facility] CRP [Mass/Vol] 1.1 mg/dL High <0.9 [facility] Comment on above: Order Comment: Speci men Type: BLOOD SPECIMEN Ordering Facility: [facility] Address: [address] [place] [address] Performed By: #### M PO #### [facility] CLIA [id number] [address] [facility] [address] [address] ESR Westergren method (Bld) [Velocity]on 12-25-2023 ESR (Bld) [Velocity] 28 mm/h High 0-15 [facility] Comment on above: Order Comment: Speci men Type: BLOOD SPECIMEN Ordering Facility: [facility] Address: [address] [place] [address] Performed By: #### 1 1572-5 #### [facility] CLIA [id number] [address] [facility] [address] [place] IMMUNOFIXATION SCREEN, SERUM on 12-25-2023 MPA RESULT No M protein is identified. Normal No M protein is identified. [facility] Comment on above: Order Comment: Speci men Type: BLOOD SPECIMENOrdering Facility: [facility] Address: [address] [place] [address] Performed By: #### I FESC ####[facility] [id number] [address] [place] STAFF REVIEW (MPA) Reviewed by Dr. Elzbieta Farley MD Normal [facility] Comment on above: Order Comment: Speci men Type: BLOOD SPECIMENOrdering Facility: [facility] Address: [address] [place] [address] Performed By: #### I FESC ####[facility] [id number] [place] [id number] [place] MYELOPEROXIDASEon 12-25-2023 MYELOPEROXIDASE 328 pmol/L Normal <470 [facility] Comment on above: Order Comment: Speci men Type: BLOOD SPECIMEN Ordering Facility: [facility] Address: [address] [place] [address] Result Comment: Base d on a high [...] analytical performance characteristics have been determined by [facility]. It has not been cleared or approved by the U.S. Food and Drug Administration. This assay has been validated pursuant to the CLIA regulations and is used for clinical purposes. Received Date: [id number] Performed By: #### M PO #### [facility] CLIA [id number] [address] [place] [address] NM CARDIAC AMYLOID SPECT/early morning n 12-25-2023 NM CARDIAC AMYLOID SPECT/CT * * *Final Report* * * DATE OF EXAM: Dec 25 2023 3:56PM [facility] 0847 - [place] CARDIAC AMYLOID SPECT/CT / PROCEDURE REASON: Cardiac amyloidosis suspected, further testing * * * * Physician Interpretation * * * * RESULT: [place] CTAC Report: [facility] Date of service: 12/25/2023 3:18:39 PM CTAC [...] pathologic assessment as appropriate. Nuclear Med Report: [id number] PLANAR and SPECT: Myocardial imaging of the chest with CT attenuation correction was performed at 3 hours post IV injection of Tc-99m Pyrophosphate. See administered doses below. [facility] Date of service: 12/25/2023 3:18:39 PM Ordering [...] Dec 25 2023 4:19PM EST [id number] Normal [facility] PROTEIN ELECTROPHORESIS SERU M (P)on 12-25-2023 Albumin [Mass/Vol] 3.52 g/dL Normal 3.43-5.41 [facility] Comment on above: Order Comment: Speci men Type: BLOOD SPECIMEN Ordering Facility: [facility] Address: [address] [place] [address] Performed By: #### L [id number] #### [facility] CLIA [id number] [address] [place] [address] [place] Alpha 1 globulin Elph [Mass/Vol] 0.34 g/dL Normal 0.18-0.43 [facility] Comment on above: Order Comment: Speci men Type: BLOOD SPECIMEN Ordering Facility: [facility] Address: [address] [place] [address] Performed By: #### L [id number] #### [facility] CLIA [id number] [address] [place] [address] [place] Alpha 2 globulin Elph [Mass/Vol] 0.86 g/dL Normal 0.42-0.98 [facility] Comment on above: Order Comment: Speci men Type: BLOOD SPECIMEN Ordering Facility: [facility] Address: [address] [place] [address] Performed By: #### L [id number] #### [facility] CLIA [id number] [address] [place] [address] [place] Beta globulin Elph [Mass/Vol] 0.91 g/dL Normal 0.61-1.17 [facility] Comment on above: Order Comment: Speci men Type: BLOOD SPECIMEN Ordering Facility: [facility] Address: [address] [place] [address] Performed By: #### L [id number] #### [facility] CLIA [id number] [address] [place] [address] [place] Gamma globulin Elph [Mass/Vol] 0.66 g/dL Normal 0.53-1.51 [facility] Comment on above: Order Comment: Speci men Type: BLOOD SPECIMEN Ordering Facility: [facility] Address: [address] [place] [address] Performed By: #### L [id number] #### [facility] CLIA [id number] [address] [place] [address] [place] M-PROTEIN LOCATION Normal [facility] Comment on above: Order Comment: Speci men Type: BLOOD SPECIMEN Ordering Facility: [facility] Address: [address] [place] [address] Result Comment: Not Applicable. Performed By: #### L [id number] #### [facility] CLIA [id number] [address] [place] [address] [place] Protein Fractions [Interp] No definitive M protein is identified on protein electrophoresis. Normal No definitive M protein is identified on protein electrophor esis. [facility] Comment on above: Order Comment: Speci men Type: BLOOD SPECIMEN Ordering Facility: [facility] Address: [address] [place] [address] Performed By: #### L [id number] #### [facility] CLIA [id number] [address] [place] [address] [place] Protein.monoclonal Elph [Mass/Vol] 0.00 g/dL Normal <=0.00 [facility] Comment on above: Order Comment: Speci men Type: BLOOD SPECIMEN Ordering Facility: [facility] Address: [address] [place] [address] Performed By: #### L [id number] #### [facility] CLIA [id number] [address] [place] [address] [place] SPE STAFF REVIEW Reviewed by Dr. Elzbieta Farley MD [facility] Comment on above: Order Comment: Speci men Type: BLOOD SPECIMEN Ordering Facility: [facility] Address: [address] [place] [address] Performed By: #### L [id number] #### [facility] CLIA [id number] [address] [place] [address] [place] Prot SerPl-mCncon 12-25-2023 Protein [Mass/Vol] 6.3 g/dL Normal 6.3-8.0 [facility] Comment on above: Order Comment: Speci men Type: BLOOD SPECIMEN Ordering Facility: [facility] Address: [address] [place] [address] Performed By: #### 1 988-5, 53731-4 #### [facility] CLIA [id number] [address] [place] [address] [place] TSH SerPl-aCncon 12-25-2023 TSH Qn 2.300 m[IU]/L Normal 0.270-4.200 [facility] Comment on above: Order Comment: Speci men Type: BLOOD SPECIMEN Ordering Facility: [facility] Address: [address] [place] [address] Performed By: #### 1 988-5, 07180-1 #### [facility] CLIA [id number] [address] [place] [address] [place] Basic metabolic 2000 panelon 12-24-2023 Anion gap [Moles/Vol] 12 mmol/L Normal 8-15 [facility] Comment on above: Order Comment: Speci men Type: BLOOD SPECIMEN Ordering Facility: [facility] Address: [address] [place] [address] Performed By: #### M PO #### [facility] CLIA [id number] [address] [place] [address] Calcium [Mass/Vol] 9.5 mg/dL Normal 8.5-10.2 [facility] Comment on above: Order Comment: Speci beth Type: BLOOD SPECIMEN Ordering Facility: [facility] Address: [address] [place] [address] Performed By: #### M PO #### [facility] CLIA [id number] [address] [place] [address] Chloride [Moles/Vol] 94 mmol/L Low 98-107 [facility] Comment on above: Order Comment: Antonellai men Type: BLOOD SPECIMEN Ordering Facility: [facility] Address: [address] [place] [address] Performed By: #### M PO #### [facility] CLIA [id number] [address] [place] [address] CO2 [Moles/Vol] 28 mmol/L Normal 22-30 [facility] Comment on above: Order Comment: Alexandru campos Type: BLOOD SPECIMEN Ordering Facility: [facility] Address: [address] [place] [address] Performed By: #### M PO #### [facility] CLIA [id number] [address] [place], [place] [address] Creatinine [Mass/Vol] 1.27 mg/dL High 0.73-1.22 [facility] Comment on above: Order Comment: Alexandru campos Type: BLOOD SPECIMEN Ordering Facility: [facility] Address: [address] [place] [address] Performed By: #### M PO #### [facility] CLIA [id number] [address] [place], [place] [address] Creatinine and Glomerular filtration rate.predicted panel (S/P/Bld) 60 mL/min/1.73m??? Normal >=60 [facility] Comment on above: Order Comment: Alexandru campos Type: BLOOD SPECIMEN Ordering Facility: [facility] Address: [address] [place] [address] Result Comment: [facility] Glomerular Filtration Rate (eGFR) is calculated [...] GFR. Performed By: #### M PO #### [facility] CLIA [id number] [address] [place] [address] Glucose [Mass/Vol] 134 mg/dL High 74-99 [facility] Comment on above: Order Comment: Alexandru campos Type: BLOOD SPECIMEN Ordering Facility: [facility] Address: [address] [place] [address] Result Comment: The [place] Diabetes Association (ADA) provides guidance for cutoff [...] Standards of Medical Care in Diabetes 2016, [place] [employer]. Diabetes Care. 2016.39(Suppl 1). Performed By: #### M PO #### [facility] CLIA [id number] [address] [place] [address] Potassium [Moles/Vol] 3.6 mmol/L Low 3.7-5.1 [facility] Comment on above: Order Comment: Alexandru campos Type: BLOOD SPECIMEN Ordering Facility: [facility] Address: [address] [place] [address] Performed By: #### M PO #### [facility] CLIA [id number] [address] [place] [address] Sodium [Moles/Vol] 134 mmol/L Low 136-144 [facility] Comment on above: Order Comment: Alexandru campos Type: BLOOD SPECIMEN Ordering Facility: [facility] Address: [address] [place] [address] Performed By: #### M PO #### [facility] CLIA [id number] [address] [place] [address] Urea nitrogen [Mass/Vol] 25 mg/dL High 9-24 [facility] Comment on above: Order Comment: Speci men Type: BLOOD SPECIMEN Ordering Facility: [facility] Address: [address] [place] [address] Performed By: #### M PO #### [facility] CLIA [id number] [address] [facility] [address] [address] Anion gap [Moles/Vol] 14 mmol/L Normal 8-15 [facility] Comment on above: Order Comment: Speci men Type: BLOOD SPECIMEN Ordering Facility: [facility] Address: [place] [address] Performed By: #### 1 988-5, 90547-7 #### [facility] CLIA [id number] [address] [place] [address] [place] Calcium [Mass/Vol] 9.4 mg/dL Normal 8.5-10.2 [facility] Comment on above: Order Comment: Speci men Type: BLOOD SPECIMEN Ordering Facility: [facility] Address: [place] [address] Performed By: #### 1 988-5, 88180-4 #### [facility] CLIA [id number] [address] [place] [address] [place] Chloride [Moles/Vol] 95 mmol/L Low 98-107 [facility] Comment on above: Order Comment: Speci men Type: BLOOD SPECIMEN Ordering Facility: [facility] Address: [facility] [place] [address] Performed By: #### 1 988-5, #### [facility] CLIA [id number] [address] [place] [address] [place] CO2 [Moles/Vol] 27 mmol/L Normal 22-30 [facility] Comment on above: Order Comment: Speci men Type: BLOOD SPECIMEN Ordering Facility: [facility] Address: [facility] [address] Performed By: #### 1 988-5, 69876-6 #### [facility] CLIA [id number] [address] [place] [address] [place] Creatinine [Mass/Vol] 1.34 mg/dL High 0.73-1.22 [facility] Comment on above: Order Comment: Alexandru campos Type: BLOOD SPECIMEN Ordering Facility: [facility] Address: [address] [place] [address] Performed By: #### 1 988-5, 06761-2 #### [facility] CLIA [id number] [address] [place] [address] [place] Creatinine and Glomerular filtration rate.predicted panel (S/P/Bld) 56 mL/min/1.73m??? Low >=60 [facility] Comment on above: Order Comment: Alexandru campos Type: BLOOD SPECIMEN Ordering Facility: [facility] Address: [address] [place] [address] Result Comment: [facility] Glomerular Filtration Rate (eGFR) is calculated using [...] actual GFR. Performed By: #### 1 988-5, 49095-2 #### [facility] [place] [id number] [address] [place] [address] [place] Glucose [Mass/Vol] 100 mg/dL High 74-99 [facility] Comment on above: Order Comment: Alexandru campos Type: BLOOD SPECIMEN Ordering Facility: [facility] Address: [address] [place] [address] Result Comment: The [place] Diabetes Association (ADA) provides guidance for cutoff [...] Standards of Medical Care in Diabetes 2016, [place] [employer]. Diabetes Care. 2016.39(Suppl 1). Performed By: #### 1 988-5, 64425-5 #### [facility] CLIA [id number] [address] [place] [address] [place] Potassium [Moles/Vol] 3.6 mmol/L Low 3.7-5.1 [facility] Comment on above: Order Comment: Speci men Type: BLOOD SPECIMEN Ordering Facility: [facility] Address: [address] [place] [address] Performed By: #### 1 988-5, #### [facility] CLIA [id number] [address] [place] [address] [place] Sodium [Moles/Vol] 136 mmol/L Normal 136-144 [facility] Comment on above: Order Comment: Speci men Type: BLOOD SPECIMEN Ordering Facility: [facility] Address: [address] [place] [address] Performed By: #### 1 988-5, #### [facility] CLIA [id number] [address] [place] [address] [place] Urea nitrogen [Mass/Vol] 26 mg/dL High 9-24 [facility] Comment on above: Order Comment: Speci men Type: BLOOD SPECIMEN Ordering Facility: [facility] Address: [address] [place] [id number] Performed By: #### 1 988-5, 04752-6 #### [facility] CLIA [id number] [address] [place] [address] [place] Magnesium SerPl-mCncon 12-23 Magnesium [Mass/Vol] 2.2 mg/dL Normal 1.7-2.3 [facility] Comment on above: Order Comment: Speci men Type: BLOOD SPECIMEN Ordering Facility: [facility] Address: [address] [place] [address] Performed By: #### 1 988-5, 84974-3 #### [facility] CLIA [id number] [address] [place] [address] [place] NURSING PROGon 12-24-2023 NURSING PROG HNO ID: [id number] Author: SONIYA JO, EVAN Service: ? Author Type: Registered Nurse Type: Nursing Progress Note Filed: 12/24/2023 22:50 Note Text: 1910- Assumed care of pt from outgoing RN, pt seen lying in bed A/O X 3, on RA, no pain or discomfort reported. Safety measures in place and call light within reach. Will continue to monitor. [facility] NURSING PROG HNO ID: [id number] Author: ELIZABETH ROWAN RN Service: Nursing Author Type: Registered Nurse Type: Nursing Progress Note Filed: 12/24/2023 10:54 Note Text: Spoke with Dr Pimentel regarding orders for LR bolus 500ml, and PO lasix 80mg. Instructed to given bolus first, then Lasix an hour after. Normal [facility] NURSING PROG HNO ID: [id number] Author: DWIGHT GLYNN RN Service: Nursing Author Type: Registered Nurse Type: Nursing Progress Note Filed: 12/24/2023 07:56 Note Text: 0200: Spoke with slot shift supervisor ADRIENNE regarding patient BP of 86/59. Pt is asymptomatic and ADRIENNE is not worried about the blood pressure at this time. I was advised to page again if BP goes below 80 or if patient becomes symptomatic. Normal [facility] Urate SerPl-mCncon 4 Urate [Mass/Vol] 7.6 mg/dL Normal 4.0-8.1 [facility] Comment on above: Order Comment: Speci men Type: BLOOD SPECIMEN Ordering Facility: [facility] Address: [address] [place] [address] Performed By: #### M PO #### [facility] CLIA [id number] [address] [place] [address] XR CHEST 2V FRONTAL/LATon XR CHEST 2V [...] Dec 25 2023 7:53AM EST [id number] Normal [facility] Basic metabolic 2000 panelon 12-23-2023 Anion gap [Moles/Vol] 17 mmol/L High 8-15 [facility] Comment on above: Order Comment: Alexandru campos Type: BLOOD SPECIMENOrdering Facility: [facility] Address: [address] [place] [address] Performed By: #### 1 9123-9, 27614-6 ####[facility] [id number] [place] [address] [place] Calcium [Mass/Vol] 9.5 mg/dL Normal 8.5-10.2 [facility] Comment on above: Order Comment: Alexandru campos Type: BLOOD SPECIMENOrdering Facility: [facility] Address: [address] [place] [address] Performed By: #### 1 9123-9, 40502-4 ####[facility] [id number] [place] [address] [place] Chloride [Moles/Vol] 97 mmol/L Low 98-107 [facility] Comment on above: Order Comment: Speci men Type: BLOOD SPECIMENOrdering Facility: [facility] Address: [address] [place] [address] Performed By: #### 1 9123-9, 65472-1 ####[facility] [id number] [place] [address] [place] CO2 [Moles/Vol] 27 mmol/L Normal 22-30 [facility] Comment on above: Order Comment: Speci men Type: BLOOD SPECIMENOrdering Facility: [facility] Address: [address] [place] [address] Performed By: #### 1 91239, 24158-0 ####[facility] [id number] [place] [address] [place] Creatinine [Mass/Vol] 1.14 mg/dL Normal 0.73-1.22 [facility] Comment on above: Order Comment: Speci men Type: BLOOD SPECIMENOrdering Facility: [facility] Address: [address] [place] [address] Performed By: #### 1 91239, 56130-0 ####[facility] [id number] [address] [place] Creatinine and Glomerular filtration rate.predicted panel (S/P/Bld) 68 mL/min/1.73m??? Normal >=60 [facility] Comment on above: Order Comment: Speci men Type: BLOOD SPECIMENOrdering Facility: [facility] Address: [address] [place] [address] Result Comment: Kristel mated Glomerular Filtration Rate [...] actual GFR. Performed By: #### 1 9123-9, 24724-7 ####[facility] [id number] [place] [address] [place] Glucose [Mass/Vol] 113 mg/dL High 74-99 [facility] Comment on above: Order Comment: Alexandru campos Type: BLOOD SPECIMENOrdering Facility: [facility] Address: [address] [place] [address] Result Comment: The [place] Diabetes Association (ADA) provides guidance for cutoff [...] Standards of Medical Care in Diabetes 2016, [place] [employer]. Diabetes Care. 2016.39(Suppl 1). Performed By: #### 1 9123-9, 61694-8 ####[facility] [id number] [place] [address] [place] Potassium [Moles/Vol] 3.8 mmol/L Normal 3.7-5.1 [facility] Comment on above: Order Comment: Alexandru campos Type: BLOOD SPECIMENOrdering Facility: [facility] Address: [address] [place] [address] Performed By: #### 1 9123-9, 73448-5 ####[facility] [id number] [place] [address] [place] Sodium [Moles/Vol] 141 mmol/L Normal 136-144 [facility] Comment on above: Order Comment: Alexandru campos Type: BLOOD SPECIMENOrdering Facility: [facility] Address: [address] [place] [address] Performed By: #### 1 9123-9, 61288-7 ####[facility] [id number] [place] [address] [place] Urea nitrogen [Mass/Vol] 15 mg/dL Normal 9-24 [facility] Comment on above: Order Comment: Speci men Type: BLOOD SPECIMENOrdering Facility: [facility] Address: [address] [facility] [place] [address] Performed By: #### 1 9123-9, 99046-1 ####[facility]ORY[facility]IA [id number] [place] [address] [place] Magnesium SerPl-mCncon 12-22 Magnesium [Mass/Vol] 1.9 mg/dL Normal 1.7-2.3 [facility] Comment on above: Order Comment: Speci men Type: BLOOD SPECIMENOrdering Facility: [facility] Address: [address] [place], [place] [address] Performed By: #### 1 9123-9, 58388-4 ####[facility] [id number] [place] [address] [place] Basic metabolic 2000 panelon 12-22-2023 Anion gap [Moles/Vol] 16 mmol/L High 8-15 [facility] Comment on above: Order Comment: Speci men Type: BLOOD SPECIMEN Ordering Facility: [facility] Address: [address] [place] [address] Performed By: #### M PO #### [facility] CLIA [id number] [address] [place] [address] Calcium [Mass/Vol] 9.0 mg/dL Normal 8.5-10.2 [facility] Comment on above: Order Comment: Speci men Type: BLOOD SPECIMEN Ordering Facility: [facility] Address: [address] [place] [address] Performed By: #### M PO #### [facility] CLIA [id number] [address] [place] [address] Chloride [Moles/Vol] 99 mmol/L Normal 98-107 [facility] Comment on above: Order Comment: Speci men Type: BLOOD SPECIMEN Ordering Facility: [facility] Address: [address] [place] [address] Performed By: #### M PO #### [facility] CLIA [id number] [address] [place] [address] CO2 [Moles/Vol] 24 mmol/L Normal 22-30 [facility] Comment on above: Order Comment: Alexandru campos Type: BLOOD SPECIMEN Ordering Facility: [facility] Address: [address] [place] [id number] Performed By: #### M PO #### [facility] CLIA [id number] [address] [place] [address] Creatinine [Mass/Vol] 0.98 mg/dL Normal 0.73-1.22 [facility] Comment on above: Order Comment: Alexandru men Type: BLOOD SPECIMEN Ordering Facility: [facility] Address: [address] [place] [address] Performed By: #### M PO #### [facility] CLIA [id number] [address] [place] [address]0749 Creatinine and Glomerular filtration rate.predicted panel (S/P/Bld) 82 mL/min/1.73m??? Normal >=60 [facility] Comment on above: Order Comment: Alexandru campos Type: BLOOD SPECIMEN Ordering Facility: [facility] Address: [address] [place] [address] Result Comment: Kristel mated Glomerular Filtration Rate [...] GFR. Performed By: #### M PO #### [facility] CLIA [id number] [address] [place] [address] 47722 Glucose [Mass/Vol] 109 mg/dL High 74-99 [facility] Comment on above: Order Comment: Alexandru campos Type: BLOOD SPECIMEN Ordering Facility: [facility] Address: [address] [place], [place] [id number] Result Comment: The [place] Diabetes Association (ADA) provides guidance for cutoff [...] Standards of Medical Care in Diabetes 2016, [place] [employer] Association. Diabetes Care. 2016.39(Suppl 1). Performed By: #### M PO #### [facility] CLIA [id number] [address] [place] [address] 02108 Potassium [Moles/Vol] 3.3 mmol/L Low 3.7-5.1 [facility] Comment on above: Order Comment: Alexandru campos Type: BLOOD SPECIMEN Ordering Facility: [facility] Address: [address] [place] [address] Performed By: #### M PO #### [facility] CL[facility] [id number] [address] [place] [address] 71239 Sodium [Moles/Vol] 139 mmol/L Normal 136-144 [facility] Comment on above: Order Comment: Alexandru campos Type: BLOOD SPECIMEN Ordering Facility: [facility] Address: [address] [place] [address] Performed By: #### M PO #### [facility] CLIA [id number] [address] [place] [address] 77517 Urea nitrogen [Mass/Vol] 12 mg/dL Normal 9-24 [facility] Comment on above: Order Comment: Alexandru campos Type: BLOOD SPECIMEN Ordering Facility: [facility] Address: [address] [place] [address] Performed By: #### M PO #### [facility] CLIA [id number] [address] [place] [address] 81716 CBC panel Auto (Bld)on 12-21 Erythrocyte distribution width (RBC) [Ratio] 15.3 % High 11.5-15.0 [facility] Comment on above: Order Comment: Alexandru campos Type: BLOOD SPECIMEN Ordering Facility: [facility] Address: [address] [place], [place] [address] Performed By: #### M PO #### [facility] CLIA [id number] [address] [place], [place] [address] Hematocrit (Bld) [Volume fraction] 39.3 % Normal 39.0-51.0 [facility] Comment on above: Order Comment: Speci men Type: BLOOD SPECIMEN Ordering Facility: [facility] Address: [address] [place] [address] Performed By: #### M PO #### [facility] CLIA [id number] [address] [place], [place] [address] Hemoglobin (Bld) [Mass/Vol] 12.7 g/dL Low 13.0-17.0 [facility] Comment on above: Order Comment: Speci men Type: BLOOD SPECIMEN Ordering Facility: [facility] Address: [address] [place] [address] Performed By: #### M PO #### [facility] CLIA [id number] [address] [place], [place] [address] MCH (RBC) [Entitic mass] 29.6 pg Normal 26.0-34.0 [facility] Comment on above: Order Comment: Speci men Type: BLOOD SPECIMEN Ordering Facility: [facility] Address: [address] [place] [address] Performed By: #### M PO #### [facility] CLIA [id number] [address] [place], [place] [address] MCHC (RBC) [Mass/Vol] 32.3 g/dL Normal 30.5-36.0 [facility] Comment on above: Order Comment: Speci men Type: BLOOD SPECIMEN Ordering Facility: [facility] Address: [address] [place] [address] Performed By: #### M PO #### [facility] CLIA [id number] [address] [place] [address] 94103 MCV (RBC) [Entitic vol] 91.6 fL Normal 80.0-100.0 [facility] Comment on above: Order Comment: Speci men Type: BLOOD SPECIMEN Ordering Facility: [facility] Address: [address] [place] [address] Performed By: #### M PO #### [facility] CLIA [id number] [address] [place] [address] 19384 Nucleated RBC (Bld) [#/Vol] 10*3/uL Normal <0.01 [facility] Comment on above: Order Comment: Speci men Type: BLOOD SPECIMEN Ordering Facility: [facility] Address: [address] [place] [id number] Performed By: #### M PO #### [facility] CLIA [id number] [address] [place] [address] 46445 Platelet mean volume (Bld) [Entitic vol] 10.2 fL Normal 9.0-12.7 [facility] Comment on above: Order Comment: Speci men Type: BLOOD SPECIMEN Ordering Facility: [facility] Address: [address] [place] [address] Performed By: #### M PO #### [facility] CLIA [id number] [address] [place] [address] 26302 Platelets (Bld) [#/Vol] 250 10*3/uL Normal 150-400 [facility] Comment on above: Order Comment: Speci men Type: BLOOD SPECIMEN Ordering Facility: [facility] Address: [address] [place] [address] Performed By: #### M PO #### [facility] CLIA [id number] [address] [place] [address] 13230 RBC (Bld) [#/Vol] 4.29 10*6/uL Normal 4.20-6.00 [facility] Comment on above: Order Comment: Speci men Type: BLOOD SPECIMEN Ordering Facility: [facility] Address: [address] [place] [address] Performed By: #### M PO #### [facility] CLIA [id number] [address] [place] [address] 38944 WBC (Bld) [#/Vol] 5.83 10*3/uL Normal 3.70-11.00 [facility] Comment on above: Order Comment: Speci men Type: BLOOD SPECIMEN Ordering Facility: [facility] Address: [address], [place] [phone] Performed By: #### M PO #### [facility] CLIA [id number] [address] [facility] [address] [place], [place] [address] CONSULT PROGon 12-22-2023 CONSULT PROG HNO ID: [id number] Author: TITA LANDRY APRN.PRODUCT DEMONSTRATOR Service: Thoracic Surgery Author Type: Nurse Practitioner Type: Consult Progress Note Filed: 12/22/2023 12:57 Note Text: [facility] THORACIC SURGERY CONSULT PROGRESS NOTE Sav Raymundo [id number] PRIMARY SERVICE: Internal Medicine HOSPITAL DAY: # [...] service, s/p R 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 Remigio Landry APRN.PRODUCT DEMONSTRATOR Pager [phone] 12/22/2023 12:17 PM [facility] Magnesium [facility] 12-21 Magnesium [Mass/Vol] 1.6 mg/dL Low 1.7-2.3 [facility] Comment on above: Order Comment: Speci men Type: BLOOD SPECIMEN Ordering Facility: [facility] Address: [address] [place] [address] Performed By: #### M PO #### [facility] CLIA [id number] [address] [place] [address] XR ABDOMEN 1V SUPINEon 12-21 XR ABDOMEN [...] on Dec 23 2023 12:20AM EST [id number] [facility] 25([place])D3 [facility] 25-hydroxyvitamin D3 [Mass/Vol] 37.2 ng/mL Normal 31.0-80.0 [facility] Comment on above: Order Comment: Speci men Type: BLOOD SPECIMEN Ordering Facility: [facility] Address: [address] [place], [place] [address] Performed By: #### 1 1572-5 #### [facility] CLIA [id number] [address] [place] [address] [place] ALLIED HEALTHon 12-21-2023 ALLIED HEALTH HNO ID: [id number] Author: ISABEL STRINGER RT(R) Service: Radiology Author Type: Studio Hand Type: Allied Health Filed: 12/21/2023 18:11 Note [...] PATIENT PRESENTS WITH AN IMPLANTABLE OR ATTACHED METALSMITH: No RADIOLOGY DEPARTMENT: Ultrasound PERIPHERAL IV DATA: Not applicable SIGNED BY: RT Geri(R) December 21, 2023 6:11 PM Normal [facility] CBC panel Auto (Bld)on 12-20 Erythrocyte distribution width (RBC) [Ratio] 15.3 % High 11.5-15.0 [facility] Comment on above: Order Comment: Speci men Type: BLOOD SPECIMEN Ordering Facility: [facility] Address: [address] [place], [place] [address] Performed By: #### 1 1572-5 #### [facility] CLIA [id number] [address] [place] [address] [place] Hematocrit (Bld) [Volume fraction] 36.3 % Low 39.0-51.0 [facility] Comment on above: Order Comment: Speci men Type: BLOOD SPECIMEN Ordering Facility: [facility] Address: [address] [place] [address] Performed By: #### 1 1572-5 #### [facility] CLIA [id number] [address] [place] [address] [place] Hemoglobin (Bld) [Mass/Vol] 11.8 g/dL Low 13.0-17.0 [facility] Comment on above: Order Comment: Speci men Type: BLOOD SPECIMEN Ordering Facility: [facility] Address: [address] [place] [address] Performed By: #### 1 1572-5 #### [facility] CLIA [id number] [address] [place] [address] [place] MCH (RBC) [Entitic mass] 29.8 pg Normal 26.0-34.0 [facility] Comment on above: Order Comment: Speci men Type: BLOOD SPECIMEN Ordering Facility: [facility] Address: [address] [place] [address] Performed By: #### 1 157-5 #### [facility] CLIA [id number] [address] [place] [address] [place] MCHC (RBC) [Mass/Vol] 32.5 g/dL Normal 30.5-36.0 [facility] Comment on above: Order Comment: Speci men Type: BLOOD SPECIMEN Ordering Facility: [facility] Address: [address] [place] [address] Performed By: #### 1 157-5 #### [facility] CLIA [id number] [address] [place] [address] [place] MCV (RBC) [Entitic vol] 91.7 fL Normal 80.0-100.0 [facility] Comment on above: Order Comment: Speci men Type: BLOOD SPECIMEN Ordering Facility: [facility] Address: [address] [place] [address] Performed By: #### 1 1572-5 #### [facility] CLIA [id number] [address] [id number] [address] [place] Nucleated RBC (Bld) [#/Vol] 10*3/uL Normal <0.01 [facility] Comment on above: Order Comment: Speci men Type: BLOOD SPECIMEN Ordering Facility: [facility] Address: [address] [place] [address] Performed By: #### 1 1572-5 #### [facility] CLIA [id number] [address] [place] [address] [place] Platelet mean volume (Bld) [Entitic vol] 10.0 fL Normal 9.0-12.7 [facility] Comment on above: Order Comment: Speci men Type: BLOOD SPECIMEN Ordering Facility: [facility] Address: [address] [place] [address] Performed By: #### 1 1572-5 #### [facility] CLIA [id number] [address] [place] [address] [place] Platelets (Bld) [#/Vol] 215 10*3/uL Normal 150-400 [facility] Comment on above: Order Comment: Speci men Type: BLOOD SPECIMEN Ordering Facility: [facility] Address: [address] [place] [address] Performed By: #### 1 1572-5 #### [facility] CLIA [id number] [address] [place] [address] [place] RBC (Bld) [#/Vol] 3.96 10*6/uL Low 4.20-6.00 [facility] Comment on above: Order Comment: Speci men Type: BLOOD SPECIMEN Ordering Facility: [facility] Address: [address] [place] [address] Performed By: #### 1 1572-5 #### [facility] CLIA [id number] [address] [place] [address] [place] WBC (Bld) [#/Vol] 6.12 10*3/uL Normal 3.70-11.00 [facility] Comment on above: Order Comment: Speci men Type: BLOOD SPECIMEN Ordering Facility: [facility] Address: [address] [place] [address] Performed By: #### 1 1572-5 #### [facility] CLIA [id number] [address] [place] [address] [place] [address] [place] CONSULTon 12-21-2023 CONSULT HNO ID: [id number] Author: RONALDO FLOOD MD, PhD Service: Thoracic Surgery Author Type: Physician Type: Consults Filed: 12/22/2023 10:17 Note Text: [facility] CONSULT NOTE Sav Raymundo [id number] Requesting Provider: Alpa Oliva CNP Cardiothoracic Physician: Ronaldo Flood MD Admit Date: 12/20/2023 LOS : 1 Chief Complaint: Recurrent Effusion HPI: Sav Raymundo is a 73 y/o male referred by Alpa Oliva CNP for an opinion regarding management of recurrent right pleural effusion. 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 Normal [facility] CRP SerPl-mCncon 12-21-2023 CRP [Mass/Vol] 1.8 mg/dL High <0.9 [facility] Comment on above: Order Comment: Alexandru campos Type: BLOOD SPECIMEN Ordering Facility: [facility] Address: [address] [place] [address] Performed By: #### 1 988-5, 44680-7 #### [facility] CLIA [id number] [address] [place] [address] [place] Comprehensive metabolic 2000 panelon 12-21-2023 Albumin [Mass/Vol] 3.4 g/dL Low 3.9-4.9 [facility] Comment on above: Order Comment: Alexandru campos Type: BLOOD SPECIMEN Ordering Facility: [facility] Address: [address] [place] [address] Performed By: #### 1 988-5, 39933-5 #### [facility] CLIA [id number] [address] [place] [address] [place] ALP [Catalytic activity/Vol] 100 U/L Normal 38-113 [facility] Comment on above: Order Comment: Alexandru campos Type: BLOOD SPECIMEN Ordering Facility: [facility] Address: [address] [place] [address] Performed By: #### 1 988-5, 31459-7 #### [facility] CLIA [id number] [address] [place] [address] [place] ALT [Catalytic activity/Vol] 11 U/L Normal 10-54 [facility] Comment on above: Order Comment: Speci men Type: BLOOD SPECIMEN Ordering Facility: [facility] Address: [address] [place] [address] Performed By: #### 1 988-5, #### [facility] CLIA [id number] [address] [place] [address] [place] Anion gap [Moles/Vol] 13 mmol/L Normal 8-15 [facility] Comment on above: Order Comment: Speci men Type: BLOOD SPECIMEN Ordering Facility: [facility] Address: [address] [place] [address] Performed By: #### 1 988-5, 88379-2 #### [facility] CLIA [id number] [address] [place] [address] [place] AST [Catalytic activity/Vol] 18 U/L Normal 14-40 [facility] Comment on above: Order Comment: Speci men Type: BLOOD SPECIMEN Ordering Facility: [facility] Address: [address] [place] [address] Performed By: #### 1 988-5, #### [facility] CLIA [id number] [address] [place] [address] [place] Bilirubin [Mass/Vol] 0.8 mg/dL Normal 0.2-1.3 [facility] Comment on above: Order Comment: Speci men Type: BLOOD SPECIMEN Ordering Facility: [facility] Address: [address] [place] [address] Performed By: #### 1 988-5, 47509-9 #### [facility] CLIA [id number] [address] [place] [address] [place] Calcium [Mass/Vol] 8.7 mg/dL Normal 8.5-10.2 [facility] Comment on above: Order Comment: Speci men Type: BLOOD SPECIMEN Ordering Facility: [facility] Address: [address] [place] [address] Performed By: #### 1 988-5, 59444-2 #### [facility] CLIA [id number] [address] [place] [address] [place] Chloride [Moles/Vol] 106 mmol/L Normal 98-107 [facility] Comment on above: Order Comment: Speci men Type: BLOOD SPECIMEN Ordering Facility: [facility] Address: [address] [place] [address] Performed By: #### 1 988-5, 00031-0 #### [facility] CLIA [id number] [address] [place] [address] [place] CO2 [Moles/Vol] 19 mmol/L Low 22-30 [facility] Comment on above: Order Comment: Speci men Type: BLOOD SPECIMEN Ordering Facility: [facility] Address: [address] [place] [address] Performed By: #### 1 988-5, 26863-3 #### [facility] CLIA [id number] [address] [place] [address] [place] Creatinine [Mass/Vol] 0.86 mg/dL Normal 0.73-1.22 [facility] Comment on above: Order Comment: Speci men Type: BLOOD SPECIMEN Ordering Facility: [facility] Address: [address] [place] [address] Performed By: #### 1 988-5, 15708-5 #### [facility] CLIA [id number] [address] [place] [address] [place] Creatinine and Glomerular filtration rate.predicted panel (S/P/Bld) 92 mL/min/1.73m??? Normal >=60 [facility] Comment on above: Order Comment: Speci men Type: BLOOD SPECIMEN Ordering Facility: [facility] Address: [address] [place] [address] Result Comment: Kristel mated Glomerular Filtration Rate [...] actual GFR. Performed By: #### 1 988-5, 50354-1 #### [facility] CLIA [id number] [address] [place] [address] [place] Glucose [Mass/Vol] 115 mg/dL High 74-99 [facility] Comment on above: Order Comment: Alexandru campos Type: BLOOD SPECIMEN Ordering Facility: [facility] Address: [address] [place] [address] Result Comment: The [place] Diabetes Association (ADA) provides guidance for cutoff [...] Standards of Medical Care in Diabetes 2016, [place] [employer]. Diabetes Care. 2016.39(Suppl 1). Performed By: #### 1 988-5, 95605-4 #### [facility] CLIA [id number] [address] [place] [address] [place] Potassium [Moles/Vol] 3.9 mmol/L Normal 3.7-5.1 [facility] Comment on above: Order Comment: Alexandru campos Type: BLOOD SPECIMEN Ordering Facility: [facility] Address: [address] [place] [address] Performed By: #### 1 988-5, 60951-8 #### [facility] CLIA [id number] [address] [place] [address] [place] Protein [Mass/Vol] 6.4 g/dL Normal 6.3-8.0 [facility] Comment on above: Order Comment: Speci men Type: BLOOD SPECIMEN Ordering Facility: [facility] Address: [address] [place] [address] Performed By: #### 1 988-5, 77374-9 #### [facility] CLIA [id number] [address] [place] [address] [place] Sodium [Moles/Vol] 138 mmol/L Normal 136-144 [facility] Comment on above: Order Comment: Speci men Type: BLOOD SPECIMEN Ordering Facility: [facility] Address: [address] [place] [address] Performed By: #### 1 988-5, 25450-2 #### [facility] CLIA [id number] [address] [place] [address] [place] Urea nitrogen [Mass/Vol] 12 mg/dL Normal 9-24 [facility] Comment on above: Order Comment: Speci men Type: BLOOD SPECIMEN Ordering Facility: [facility] Address: [address] [place] [address] Performed By: #### 1 988-5, 67735-1 #### [facility] CLIA [id number] [address] [place] [address] [place] Cyclic citrullinated peptide IgG Qnon 12-21-2023 CCP ANTIBODY IGG QUALITATIVE Negative Normal Negative [facility] Comment on above: Order Comment: Speci men Type: BLOOD SPECIMEN Ordering Facility: [facility] Address: [address] [place] [address] Performed By: #### 1 1572-5 #### [facility] CLIA [id number] [address] [facility] [address] [id number] [address] [place] ESR Westergren method (Bld) [Velocity]on 12-21-2023 ESR (Bld) [Velocity] 33 mm/h High 0-15 [facility] Comment on above: Order Comment: Speci men Type: BLOOD SPECIMEN Ordering Facility: [facility] Address: [address] [place] [address] Performed By: #### M PO #### [facility] CLIA [id number] [address] [address] HISTORY PHYSICALon HISTORY PHYSICAL HNO ID: [id number] Author: JOSE ANTONIO HOPPER MD Service: Family [...] file) Recurrent (more content not included)... Normal [facility] Nuclear Ab IA Ql (S)on 12-20 GREY SCR QUAL Negative Normal Negative [facility] Comment on above: Order Comment: Specsyl campos Type: BLOOD SPECIMEN Ordering Facility: [facility] Address: [address] [place] [address] Result Comment: The qualitative antinuclear antibody screen test performed using the following antigens: dsDNA, Chromatin, Ribosomal P, SS-A 60, SS-A 52, SS-B, Sm, SmRNP, HEALTH ANALYST A, HEALTH ANALYST 68, Scl-70, Alice-1, and Centromere B. Methodology: Multiplex flow immunoassay. Performed By: #### 1 1572-5 #### [facility] CLIA [id number] [address] [place] [address] [place] PROTEINASE 3 ANTIBODYon Proteinase 3 Ab Qn (S) <0.2 Normal <1.0 [facility] Comment on above: Order Comment: Alexandru campos Type: BLOOD SPECIMEN Ordering Facility: [facility] Address: [address] [place] [address] Performed By: #### 1 1572-5 #### [facility] CLIA [id number] [address] [place] [address] [place] Rheumatoid fact SerPl-aCncon 12-21-2023 Rheumatoid factor Qn [IU]/mL Normal <16 [facility] Comment on above: Order Comment: Speci men Type: BLOOD SPECIMEN Ordering Facility: [facility] Address: [address] [place] [address] Performed By: #### 1 1572-5 #### [facility] CLIA [id number] [address] [place] [address] [id number] [id number] [place] US ABD RIGHT [...] Dec 22 2023 3:17PM EST [id number] Normal [facility] XR Chest PA and Lateralon IMPRESSION: Stable exam with a persistent right pleural effusion. Transcribed Using Voice Recognition Transcribe Date/Time: Dec 21 2023 10:02A Dictated by: JEFFREY KRUEGER MD This examination was interpreted and the report reviewed and electronically signed by: JEFFREY KRUEGER MD on Dec 21 2023 10:03AM EST [facility] * * *Final Report* * [...] cardiomediastinal silhouette. Bones and soft tissues: Unremarkable. [facility] Provider, Migel [facility] - 12/21/2023 * * *Final Report* * [...] MD on Dec 21 2023 10:03AM EST [facility] XR Chest PA and LateralOrder ed By: [facility]cf Provider on 12-21-2023 [facility] cCP IgG SerPl-aCncon 024 Cyclic citrullinated peptide IgG Qn <15 Normal <20 [facility] Comment on above: Order Comment: Speci men Type: BLOOD SPECIMEN Ordering Facility: [facility] Address: [address] [place] [address] Performed By: #### 1 1572-5 #### [facility] CLIA [id number] [address] [place] [address] OF [facility] ALLIED HEALTHon 12-20-2023 ALLIED HEALTH HNO ID: [id number] Author: AMNA MASSEY RT(R) Service: ? Author [...] PATIENT PRESENTS WITH AN IMPLANTABLE OR ATTACHED METALSMITH: No ALLERGIES: Reviewed and unchanged CONTRAST ALLERGY: [...] DATE: December 20, 2023 TIME: 5:06 PM [facility] ALLIED HEALTH HNO ID: [id number] Author: OBI HAAS Tech Service: Radiology Author Type: Venetian Blind Tape Cutter Type: Allied Health Filed: 12/20/2023 15:12 Note [...] PATIENT PRESENTS WITH AN IMPLANTABLE OR ATTACHED METALSMITH: No RADIOLOGY DEPARTMENT: General X-ray: Exam(s) Completed: Chest X-Ray PERIPHERAL IV DATA: Not applicable SIGNED BY: Levy Castanon December 20, 2023 3:12 PM [facility] CBC W Auto Differential pane l (Bld)on 12-20-2023 Basophils (Bld) [#/Vol] 0.05 10*3/uL Normal <0.11 [facility] Comment on above: Order Comment: Speci men Type: BLOOD SPECIMEN Ordering Facility: [facility] Address: [address] [place] [address] Performed By: #### M PO #### [facility] CLIA [id number] [address] [place] [address] 08147 Basophils/100 WBC (Bld) 0.7 % Normal [facility] Comment on above: Order Comment: Speci men Type: BLOOD SPECIMEN Ordering Facility: [facility] Address: [address] [place] [address] Performed By: #### M PO #### [facility] CLIA [id number] [address] [place] [address] 34920 Differential cell count method Nom (Bld) Auto Normal [facility] Comment on above: Order Comment: Speci men Type: BLOOD SPECIMEN Ordering Facility: [facility] Address: [address] [place] [address] Performed By: #### M PO #### [facility] CLIA [id number] [address] [place] [address] Eosinophils (Bld) [#/Vol] 0.20 10*3/uL Normal <0.46 [facility] Comment on above: Order Comment: Speci men Type: BLOOD SPECIMEN Ordering Facility: [facility] Address: [address] [place] [address] Performed By: #### M PO #### [facility] CLIA [id number] [address] [place], [place] [address] Eosinophils/100 WBC (Bld) 2.9 % Normal [facility] Comment on above: Order Comment: Speci men Type: BLOOD SPECIMEN Ordering Facility: [facility] Address: [address] [place] [address] Performed By: #### M PO #### [facility] CLIA [id number] [address] [place], [place] [address] Erythrocyte distribution width (RBC) [Ratio] 15.3 % High 11.5-15.0 [facility] Comment on above: Order Comment: Speci men Type: BLOOD SPECIMEN Ordering Facility: [facility] Address: [address] [place] [address] Performed By: #### M PO #### [facility] CLIA [id number] [address] [place], [place] [address] Hematocrit (Bld) [Volume fraction] 39.8 % Normal 39.0-51.0 [facility] Comment on above: Order Comment: Speci men Type: BLOOD SPECIMEN Ordering Facility: [facility] Address: [address] [place] [address] Performed By: #### M PO #### [facility] CLIA [id number] [address] [place] [address] 64175 Hemoglobin (Bld) [Mass/Vol] 12.7 g/dL Low 13.0-17.0 [facility] Comment on above: Order Comment: Speci men Type: BLOOD SPECIMEN Ordering Facility: [facility] Address: [address] [place] [address] Performed By: #### M PO #### [facility] CLIA [id number] [address] [place] [address] 18544 Immature granulocytes (Bld) [#/Vol] 0.05 10*3/uL Normal <0.10 [facility] Comment on above: Order Comment: Speci men Type: BLOOD SPECIMEN Ordering Facility: [facility] Address: [address] [place] [address] Performed By: #### M PO #### [facility] CLIA [id number] [address] [place] [address] 60899 Immature granulocytes/100 WBC (Bld) 0.7 % Normal [facility] Comment on above: Order Comment: Speci men Type: BLOOD SPECIMEN Ordering Facility: [facility] Address: [address] [place] [address] Performed By: #### M PO #### [facility] CLIA [id number] [address] [place] [address] 25419 Lymphocytes (Bld) [#/Vol] 1.26 10*3/uL Normal 1.00-4.00 [facility] Comment on above: Order Comment: Speci men Type: BLOOD SPECIMEN Ordering Facility: [facility] Address: [address] [place] [address] Performed By: #### M PO #### [facility] CLIA [id number] [address] [place] [address] 58997 Lymphocytes/100 WBC (Bld) 18.0 % Normal [facility] Comment on above: Order Comment: Speci men Type: BLOOD SPECIMEN Ordering Facility: [facility] Address: [address] [place] [address] Performed By: #### M PO #### [facility] CLIA [id number] [address] [place] [address] 52703 MCH (RBC) [Entitic mass] 29.9 pg Normal 26.0-34.0 [facility] Comment on above: Order Comment: Speci men Type: BLOOD SPECIMEN Ordering Facility: [facility] Address: [address] [place] [address] Performed By: #### M PO #### [facility] CLIA [id number] [address] [place] [address] 18685 MCHC (RBC) [Mass/Vol] 31.9 g/dL Normal 30.5-36.0 [facility] Comment on above: Order Comment: Speci men Type: BLOOD SPECIMEN Ordering Facility: [facility] Address: [address] [place] [address] Performed By: #### M PO #### [facility] CLIA [id number] [address] [place], [place] [address] MCV (RBC) [Entitic vol] 93.6 fL Normal 80.0-100.0 [facility] Comment on above: Order Comment: Speci men Type: BLOOD SPECIMEN Ordering Facility: [facility] Address: [address] [place] [address] Performed By: #### M PO #### [facility] CLIA [id number] [address] [place], [place] [address] Monocytes (Bld) [#/Vol] 0.66 10*3/uL Normal <0.87 [facility] Comment on above: Order Comment: Speci men Type: BLOOD SPECIMEN Ordering Facility: [facility] Address: [address] [place] [address] Performed By: #### M PO #### [facility] CLIA [id number] [address] [place], [place] [address] Monocytes/100 WBC (Bld) 9.4 % Normal [facility] Comment on above: Order Comment: Speci men Type: BLOOD SPECIMEN Ordering Facility: [facility] Address: [address] [place] [address] Performed By: #### M PO #### [facility] CLIA [id number] [address] [place] [address] 52405 Neutrophils (Bld) [#/Vol] 4.78 10*3/uL Normal 1.45-7.50 [facility] Comment on above: Order Comment: Speci men Type: BLOOD SPECIMEN Ordering Facility: [facility] Address: [address] [place] [id number] Performed By: #### M PO #### [facility] CLIA [id number] [address] [place] [address] 21091 Neutrophils/100 WBC (Bld) 68.3 % Normal [facility] Comment on above: Order Comment: Speci men Type: BLOOD SPECIMEN Ordering Facility: [facility] Address: [address] [place] [address] Performed By: #### M PO #### [facility] CLIA [id number] [address] [place] [address] 24328 Nucleated RBC (Bld) [#/Vol] 10*3/uL Normal <0.01 [facility] Comment on above: Order Comment: Speci men Type: BLOOD SPECIMEN Ordering Facility: [facility] Address: [address] [place] [id number] Performed By: #### M PO #### [facility] CLIA [id number] [address] [place] [address] 09824 Nucleated RBC/100 WBC (Bld) [Ratio] 0.0 /100 WBC Normal [facility] Comment on above: Order Comment: Speci men Type: BLOOD SPECIMEN Ordering Facility: [facility] Address: [address] [place] [address] Performed By: #### M PO #### [facility] CLIA [id number] [address] [place] [address] 24852 Platelet mean volume (Bld) [Entitic vol] 10.1 fL Normal 9.0-12.7 [facility] Comment on above: Order Comment: Speci men Type: BLOOD SPECIMEN Ordering Facility: [facility] Address: [address] [place] [address] Performed By: #### M PO #### [facility] CLIA [id number] [address] [place] [address] 33599 Platelets (Bld) [#/Vol] 229 10*3/uL Normal 150-400 [facility] Comment on above: Order Comment: Speci men Type: BLOOD SPECIMEN Ordering Facility: [facility] Address: [address] [place] [address] 26328 Performed By: #### M PO #### [facility] CLIA [id number] [address] [place] [address] 33816 RBC (Bld) [#/Vol] 4.25 10*6/uL Normal 4.20-6.00 [facility] Comment on above: Order Comment: Speci men Type: BLOOD SPECIMEN Ordering Facility: [facility] Address: [address] [place], [place] [address] Performed By: #### M PO #### [facility] CLIA [id number] [address] [place] [address] 59422 WBC (Bld) [#/Vol] 7.00 10*3/uL Normal 3.70-11.00 [facility] Comment on above: Order Comment: Speci men Type: BLOOD SPECIMEN Ordering Facility: [facility] Address: [address] [place] [address]224 Performed By: #### M PO #### [facility] CLIA [id number] [address] [place] [address] 40566 INÉSOVon 12-20-2023 CNOV Office Visit ([facility] ) -- SAV RAYMUNDO ([id number]) 1950 M Date Time Provider Department 12/20/23 2:00 PM TITA LANDRY During your visit today, we recorded the following information about you: Temperature Respiration Weight Height 97.3 degrees 18/minute 104.8 kg 1.829 m Tita Landry APRN.PRODUCT DEMONSTRATOR 01/19/2024 9:56 PM Signed Heart, Vascular [facility] Thoracic Walker DEPARTMENT OF THORACIC SURGERY OUTPATIENT VISIT DATE December 20, 2023 OUTPATIENT VISIT TYPE ESTABLISHED PT NAME: Sav Raymundo CLINIC NO: [id number] THORACIC SURGEON: Ronaldo Flood M.D. 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 Right pleura, biopsy: - Chronic pleuritis with mesothelial hyperplasia (see comment). B. Right pleura, biopsy: - Acute organizing and chronic pleuritis (see comment). CT/ 11/22/2023 Diagnosis Comment A. The biopsy contains [...] surgery. Note (more content not included)... Normal [facility] CT ABD/PEL W IVCONon 07-05-[address] ABD/PEL W IVCON * * *Final Report* * * DATE OF EXAM: Dec 20 2023 5:12PM [facility] 0530 - CT ABD/PEL W IVCON / [...] Dec 20 2023 5:40PM EST [id number] Normal [facility] Cholest SerPl-ncon 024 Cholesterol [Mass/Vol] 106 mg/dL Normal <200 [facility] Comment on above: Order Comment: Speci men Type: BLOOD SPECIMEN Ordering Facility: [facility] Address: [address] [place] [address] Result Comment: <200 mg/dL, Desirable 200-239 mg/dL, Borderline high >239 mg/dL, High Reference: 1. National Cholesterol Education Program ATP III Guideline At-A-Glance Quick Desk Reference: National Heart, Lung, and Blood Walker. National Institutes of Health. 2001: NIH Publication No. 01-3305. Performed By: #### 1 1572-5 #### [facility] CLIA [id number] [address] [place] [address] [place] Comprehensive metabolic 2000 panelon 12-20-2023 Albumin [Mass/Vol] 4.0 g/dL Normal 3.9-4.9 [facility] Comment on above: Order Comment: Speci men Type: BLOOD SPECIMEN Ordering Facility: [facility] Address: [address] [place] [address] Performed By: #### 1 988-5, 11464-6 #### [facility] CLIA [id number] [address] [place] [address] [place] ALP [Catalytic activity/Vol] 110 U/L Normal 38-113 [facility] Comment on above: Order Comment: Speci men Type: BLOOD SPECIMEN Ordering Facility: [facility] Address: [address] [place] [address] Performed By: #### 1 988-5, 74696-4 #### [facility] CLIA [id number] [address] [place] [address] [place] ALT [Catalytic activity/Vol] 13 U/L Normal 10-54 [facility] Comment on above: Order Comment: Speci men Type: BLOOD SPECIMEN Ordering Facility: [facility] Address: [address] [place] [id number] Performed By: #### 1 988-5, 07209-5 #### [facility] CLIA [id number] [address] [place] [address] [place] Anion gap [Moles/Vol] 12 mmol/L Normal 8-15 [facility] Comment on above: Order Comment: Speci men Type: BLOOD SPECIMEN Ordering Facility: [facility] Address: [address] [place] [address] Performed By: #### 1 988-5, #### [facility] CLIA [id number] [address] [place] [address] [place] AST [Catalytic activity/Vol] 20 U/L Normal 14-40 [facility] Comment on above: Order Comment: Speci men Type: BLOOD SPECIMEN Ordering Facility: [facility] Address: [address] [place] [address] Performed By: #### 1 988-5, #### [facility] CLIA [id number] [address] [place] [address] [place] Bilirubin [Mass/Vol] 0.6 mg/dL Normal 0.2-1.3 [facility] Comment on above: Order Comment: Speci men Type: BLOOD SPECIMEN Ordering Facility: [facility] Address: [address] [place] [address] Performed By: #### 1 988-5, #### [facility] CLIA [id number] [address] [place] [address] [place] Calcium [Mass/Vol] 9.1 mg/dL Normal 8.5-10.2 [facility] Comment on above: Order Comment: Speci men Type: BLOOD SPECIMEN Ordering Facility: [facility] Address: [address] [place] [address] Performed By: #### 1 988-5, #### [facility] CLIA [id number] [address] [place] [address] [place] Chloride [Moles/Vol] 105 mmol/L Normal 98-107 [facility] Comment on above: Order Comment: Speci men Type: BLOOD SPECIMEN Ordering Facility: [facility] Address: [address] [place] [address] Performed By: #### 1 988-5, 51603-1 #### [facility] CLIA [id number] [address] [place] [address] [place] CO2 [Moles/Vol] 20 mmol/L Low 22-30 [facility] Comment on above: Order Comment: Speci men Type: BLOOD SPECIMEN Ordering Facility: [facility] Address: [address] [place] [address] Performed By: #### 1 988-5, 00654-2 #### [facility] CLIA [id number] [address] [place] [address] [place] Creatinine [Mass/Vol] 1.07 mg/dL Normal 0.73-1.22 [facility] Comment on above: Order Comment: Antonellai men Type: BLOOD SPECIMEN Ordering Facility: [facility] Address: [address] [place] [address] Performed By: #### 1 988-5, 72355-8 #### [facility] CLIA [id number] [address] [place] [address] [facility] Creatinine and Glomerular filtration rate.predicted panel (S/P/Bld) 74 mL/min/1.73m??? Normal >=60 [facility] Comment on above: Order Comment: Speci men Type: BLOOD SPECIMEN Ordering Facility: [facility] Address: [address] [place] [address] Result Comment: Kristel mated Glomerular Filtration Rate [...] actual GFR. Performed By: #### 1 988-5, 03385-6 #### [facility] CLIA [id number] [address] [place] [address] [place] Glucose [Mass/Vol] 111 mg/dL High 74-99 [facility] Comment on above: Order Comment: Alexandru campos Type: BLOOD SPECIMEN Ordering Facility: [facility] Address: [address] [place] [address] Result Comment: The [place] Diabetes Association (ADA) provides guidance for cutoff [...] Standards of Medical Care in Diabetes 2016, [place] [employer] Association. Diabetes Care. 2016.39(Suppl 1). Performed By: #### 1 988-5, 68268-0 #### [facility] CLIA [id number] [address] [place] [address] [place] Protein [Mass/Vol] 6.9 g/dL Normal 6.3-8.0 [facility] Comment on above: Order Comment: Alexandru campos Type: BLOOD SPECIMEN Ordering Facility: [facility] Address: [address] [place] [address] Performed By: #### 1 988-5, 83700-7 #### [facility] CLIA [id number] [address] [place] [address] [place] Sodium [Moles/Vol] 137 mmol/L Normal 136-144 [facility] Comment on above: Order Comment: Alexandru campos Type: BLOOD SPECIMEN Ordering Facility: [facility] Address: [address] [place] [address] Performed By: #### 1 988-5, 19334-6 #### [facility] CLIA [id number] [address] [place] [address] [place] Urea nitrogen [Mass/Vol] 15 mg/dL Normal 9-24 [facility] Comment on above: Order Comment: Speci men Type: BLOOD SPECIMEN Ordering Facility: [facility] Address: [facility] [place] [address] Performed By: #### 1 988-5, 93322-3 #### [facility] CLIA [id number] [address] ECG COMPLETEon 12-20-2023 ECG COMPLETE Ventricular Rate : 8 3 BPM Atrial Rate : 83 BPM P-R Interval : 184 ms QRS Duration : 80 ms Q-T Interval : 348 ms QTC Calculation(Bazett) : 408 ms Calculated P Nunica : 78 degrees Calculated R Nunica : 3 degrees Calculated T Nunica : 230 degrees POOR DATA QUALITY, INTERPRETATION MAY BE ADVERSELY AFFECTED NORMAL SINUS RHYTHM NONSPECIFIC T WAVE ABNORMALITY ABNORMAL ECG NO PREVIOUS ECGS AVAILABLE NO STEMI CONFIRMED 2057 Confirmed by MERLYN HALL MD ([id number]), material expeditor ROLANDO SPAULDING ([id number]) on 12/21/2023 8:32:15 AM NAME : SAV RAYMUNDO PID : [id number] : 1950 Gender : Male Race : ORD : [id number] Procedure Date : Dec 20 2023 19:12:11 Edit Date : Dec 21 2023 08:32:16 Diagnosis: POOR DATA QUALITY, INTERPRETATION MAY BE ADVERSELY AFFECTED NORMAL SINUS RHYTHM NONSPECIFIC T WAVE ABNORMALITY ABNORMAL ECG NO PREVIOUS ECGS AVAILABLE NO STEMI CONFIRMED 2057 Confirmed by MERLYN HALL MD ([id number]), material expeditor ROLANDO SPAULDING ([id number]) on 12/21/2023 8:32:15 AM Test Reason : Chest Pain Location : 26 : ER L ED Overread By : MERLYN HALL MD Edited By : ROLANDO SPAULDING Referred By : , Acquired by : , [facility] ED NOTEon 12-20-2023 ED NOTE HNO ID: [id number] Author: CHARLIE GRANGER RN Service: ? Author Type: Registered Nurse Type: ED Notes Filed: 12/20/2023 18:48 Note Text: Bed: ED-25 Expected date: Expected time: Means of arrival: Comments: triage [facility] ED NOTE HNO ID: [id number] Author: KEVIN HINSON RN Service: ? Author Type: Registered Nurse Type: ED Notes Filed: 12/20/2023 14:59 Note Text: Pt arrives to ED from appointment. Pt reported had l pleural effusion done today. Reportedly gets drained multiple times per week. Pt has had incread n/v/d x1 week. Abdominal area is distended according to [employer]. Pt is AANDOx3 and ambulatory Normal [facility] ED PROV NOTEon 12-20-2023 ED PROV NOTE HNO ID: [id number] Author: MERLYN HALL DO Service: Emergency Medicine [...] High Sen (more content not included)... Normal [facility] ED Triage Noteon 12-20-2023 ED Triage Note HNO ID: [id number] Author: RAFAELA BATISTA MD Service: Emergency Medicine [...] ECG COMPLETE SIGNATURE: Rafaela Batista MD Normal [facility] Gas + CO Pnl BldVon 12-20-19 24 Potassium [Moles/Vol] 4.6 mmol/L Normal 3.7-5.1 [facility] Comment on above: Order Comment: Speci men Type: BLOOD SPECIMEN Ordering Facility: [facility] Address: [address] [place] [address] Performed By: #### M PO #### [facility] CLIA [id number] [address] [place] [place] [address] Performed By: #### 1 988-5, 48332-1 #### [facility] CLIA [id number] [address] [place] [id number] [place] Gas and Carbon monoxide pane l (BldV)on 12-20-2023 BASE DEFICIT, VENOUS -2 mmol/L Normal -2-0 [facility] Comment on above: Order Comment: Speci men Type: BLOOD SPECIMEN Ordering Facility: [facility] Address: [address] [place] [address] Performed By: #### M PO #### [facility] CLIA [id number] [address] [place] [address] Body temperature 98.6 [degF] Normal [facility] Comment on above: Order Comment: Speci men Type: BLOOD SPECIMEN Ordering Facility: [facility] Address: [address] [place] [address] Performed By: #### M PO #### [facility] CLIA [id number] [address] [place] [address] Calcium.ionized (Bld) [Mass/Vol] 1.22 mmol/L Normal 1.08-1.30 [facility] Comment on above: Order Comment: Speci men Type: BLOOD SPECIMEN Ordering Facility: [facility] Address: [address] [place] [address] Performed By: #### M PO #### [facility] CLIA [id number] [address] [place] [address] Carboxyhemoglobin (BldV) [Mass fraction] <1.0 Normal 0.0-2.0 [facility] Comment on above: Order Comment: Speci men Type: BLOOD SPECIMEN Ordering Facility: [facility] Address: [address] [place] [address] Result Comment: Carb oxyhemoglobin Reference Range for Smokers: 2.0-8.0% Performed By: #### M PO #### [facility] CLIA [id number] [address], [place] [address] Chloride [Moles/Vol] 111 mmol/L High 97-105 [facility] Comment on above: Order Comment: Speci men Type: BLOOD SPECIMEN Ordering Facility: [facility] Address: [address] [place], [place] [address] Performed By: #### M PO #### [facility] CLIA [id number] [address] [place] [address] CO2 (BldV) [Partial pressure] 44 mm[Hg] Normal 42-55 [facility] Comment on above: Order Comment: Speci men Type: BLOOD SPECIMEN Ordering Facility: [facility] Address: [address] [place] [address] Performed By: #### M PO #### [facility] CLIA [id number] [address] [place], [place] [address] Glucose [Mass/Vol] 112 mg/dL High 60-105 [facility] Comment on above: Order Comment: Speci men Type: BLOOD SPECIMEN Ordering Facility: [facility] Address: [address] [place] [address] Performed By: #### M PO #### [facility] CLIA [id number] [address] [place], [place] [address] HCO3 (Bld) [Moles/Vol] 23 mmol/L Low 24-28 [facility] Comment on above: Order Comment: Speci men Type: BLOOD SPECIMEN Ordering Facility: [facility] Address: [address] [place] [address] Performed By: #### M PO #### [facility] CLIA [id number] [address] [place] [address]8399 Hematocrit (Bld) [Volume fraction] 39.6 % Normal 39.0-51.0 [facility] Comment on above: Order Comment: Speci men Type: BLOOD SPECIMEN Ordering Facility: [facility] Address: [address] [place] [address] Performed By: #### M PO #### [facility] CLIA [id number] [address] [place] [address] 22081 Hemoglobin (Bld) [Mass/Vol] 12.9 g/dL Low 13.0-17.0 [facility] Comment on above: Order Comment: Speci men Type: BLOOD SPECIMEN Ordering Facility: [facility] Address: [address] [place] [address] Performed By: #### M PO #### [facility] CLIA [id number] [address] [place] [address] 98729 Lactate [Moles/Vol] 0.9 mmol/L Normal 0.5-2.2 [facility] Comment on above: Order Comment: Speci men Type: BLOOD SPECIMEN Ordering Facility: [facility] Address: [address] [place] [address] Performed By: #### M PO #### [facility] CLIA [id number] [address] [place] [address] 67997 Methemoglobin (Bld) [Mass fraction] % Normal 0.0-1.5 [facility] Comment on above: Order Comment: Speci men Type: BLOOD SPECIMEN Ordering Facility: [facility] Address: [address] [place] [address] Performed By: #### M PO #### [facility] CLIA [id number] [address] [place] [address] 79211 O2 THERAPY RA=Room Air Normal [facility] Comment on above: Order Comment: Speci men Type: BLOOD SPECIMEN Ordering Facility: [facility] Address: [address] [place] [address] Performed By: #### M PO #### [facility] CLIA [id number] [address] [place] [address] 53266 Oxygen (BldV) [Partial pressure] mm[Hg] Low 35-45 [facility] Comment on above: Order Comment: Speci men Type: BLOOD SPECIMEN Ordering Facility: [facility] Address: [address] [place] [address] Performed By: #### M PO #### [facility] CLIA [id number] [address] [place] [address] 50892 Oxygen saturation in Venous blood 30 % Low 60-85 [facility] Comment on above: Order Comment: Speci men Type: BLOOD SPECIMEN Ordering Facility: [facility] Address: [address] [place] [address] Performed By: #### M PO #### [facility] CLIA [id number] [address] [place] [address] 20127 Oxyhemoglobin (BldV) [Mass fraction] 29 % Low 60-85 [facility] Comment on above: Order Comment: Speci men Type: BLOOD SPECIMEN Ordering Facility: [facility] Address: [address] [facility] [facility] [id number] Performed By: #### M PO #### [facility] CLIA [id number] [address] [place], [place] [address] pH (BldV) 7.34 [pH] Normal 7.32-7.42 [facility] Comment on above: Order Comment: Speci men Type: BLOOD SPECIMEN Ordering Facility: [facility] Address: [address] [facility] [place] [id number] Performed By: #### M PO #### [facility] CLIA [id number] [address] [place] [address] 66052 Sodium [Moles/Vol] 138 mmol/L Normal 136-144 [facility] Comment on above: Order Comment: Speci men Type: BLOOD SPECIMEN Ordering Facility: [facility] Address: [address] [place] [address] Performed By: #### M PO #### [facility] CLIA [id number] [address] [place] [address] 94465 HIGH SENSITIVITY TROPONIN T (INITIAL)on 12-20-2023 Troponin T.cardiac High sensitivity method [Mass/Vol] 13 ng/L High <12 [facility] Comment on above: Order Comment: Speci men Type: BLOOD SPECIMEN Ordering Facility: [facility] Address: [address] [place] [id number] Performed By: #### 1 988-5, 37800-1 #### [facility] CLIA [id number] [address] [place] [address] [place] HIGH SENSITIVITY TROPONIN T (SECOND)on 12-20-2023 Troponin T.cardiac High sensitivity method [Mass/Vol] 12 ng/L High <12 [facility] Comment on above: Order Comment: Alexandru campos Type: BLOOD SPECIMEN Ordering Facility: [facility] Address: [address] [place] [address] Performed By: #### 1 988-5, 27716-0 #### [facility] CLIA [id number] [address] [place] HIGH SENSITIVITY TROPONIN T (THIRD) 3 HRS AFTER INITIALon 12-20-2023 Troponin T.cardiac High sensitivity method [Mass/Vol] 11 ng/L Normal <12 [facility] Comment on above: Order Comment: Alexandru campos Type: BLOOD SPECIMEN Ordering Facility: [facility] Address: [address] [place] [address] Performed By: #### 1 1572-5 #### [facility] CLIA [id number] [address] [place] [address] [id number] [place] [address] OF [facility] HISTORY PHYSICALon 4 HISTORY PHYSICAL HNO ID: [id number] Author: ALPA OLIVA APRN.CNP Service: General Internal [...] for malaise, (more content not included)... Normal [facility] Lipase SerPl-cCncon 12-20-19 24 Lipase [Catalytic activity/Vol] 40 U/L Normal 16-61 [facility] Comment on above: Order Comment: Speci men Type: BLOOD SPECIMEN Ordering Facility: [facility] Address: [address] [place] [address] Performed By: #### 1 988-5, 80401-8 #### [facility] CLIA [id number] [address] [place], [place] [address] [place] Magnesium SerPl-mCncon 12-19 Magnesium [Mass/Vol] 2.1 mg/dL Normal 1.7-2.3 [facility] Comment on above: Order Comment: Speci men Type: BLOOD SPECIMEN Ordering Facility: [facility] Address: [address] [place] [address] Performed By: #### 1 988-5, 73676-2 #### [facility] CLIA [id number] [address] [place] [address] [place] NT-proBNP SerPl-mCncon 12-19 Natriuretic peptide.B prohormone N-Terminal [Mass/Vol] 464 pg/mL High <125 [facility] Comment on above: Order Comment: Speci men Type: BLOOD SPECIMEN Ordering Facility: [facility] Address: [address] [place] [address] Performed By: #### 1 988-5, 09500-1 #### [facility] [place] [id number] [address] [place] [address] [place] Trigl SerPl-mCncon Triglyceride [Mass/Vol] 86 mg/dL Normal <150 [facility] Comment on above: Order Comment: Speci men Type: BLOOD SPECIMEN Ordering Facility: [facility] Address: [address] [place] [address] Result Comment: <150 mg/dL, Normal 150-199 mg/dL, Borderline high 200-499 mg/dL, High >499 mg/dL, Very high Reference: 1. National Cholesterol Education Program ATP III Guideline At-A-Glance Quick Desk Reference: National Heart, Lung, and Blood Walker. National Institutes of Health. 2001: NIH Publication No. 01-3305. Performed By: #### 1 1572-5 #### [facility] CLIA [id number] [address] [place], [place] [address] [address] [place] Triglyceride [Mass/Vol]on FASTING TIME Unknown\X09\ Normal [facility] Comment on above: Order Comment: Speci men Type: BLOOD SPECIMEN Ordering Facility: [facility] Address: [address] [place] [address] Performed By: #### 1 1572-5 #### [facility] CLIA [id number] [address] [place] [address] [id number] [address] [place] Urinalysis complete panel (U )on 12-20-2023 Bilirubin Ql (U) Negative Normal Negative [facility] Comment on above: Order Comment: Speci men Type: URINE SPECIMEN Ordering Facility: [facility] Address: [address] [place] [address] Performed By: #### 2 4356-8 #### [facility] CLIA [id number] [address] [place] [address] [place] Clarity (Unsp spec) Clear Normal Clear [facility] Comment on above: Order Comment: Speci men Type: URINE SPECIMEN Ordering Facility: [facility] Address: [address] [place] [address] Performed By: #### 2 4356-8 #### [facility] CLIA [id number] [address] [place] [address] [place] Color (U) Yellow Normal Yellow [facility] Comment on above: Order Comment: Speci men Type: URINE SPECIMEN Ordering Facility: [facility] Address: [address] [place] [address] Performed By: #### 2 4356-8 #### [facility] CLIA [id number] [address] [place] [address] [place] Epithelial cells LM.HPF (Urine sed) [#/Area] Moderate Normal [facility] Comment on above: Order Comment: Speci men Type: URINE SPECIMEN Ordering Facility: [facility] Address: [address] [place] [address] Performed By: #### 2 4356-8 #### [facility] CLIA [id number] [address] [place] [address] [place] Glucose Test strip (U) [Mass/Vol] Negative Normal Trace, Negative [facility] Comment on above: Order Comment: Speci men Type: URINE SPECIMEN Ordering Facility: [facility] Address: [address] [place] [address] Performed By: #### 2 4356-8 #### [facility] CLIA [id number] [address] [place] [address] [place] Hemoglobin Ql (U) Negative Normal Negative, Trace [facility] Comment on above: Order Comment: Speci men Type: URINE SPECIMEN Ordering Facility: [facility] Address: [address] [place] [address] Performed By: #### 2 4356-8 #### [facility] CLIA [id number] [address] [place] [address] [place] Ketones Ql (U) Negative Normal Negative, Trace [facility] Comment on above: Order Comment: Speci men Type: URINE SPECIMEN Ordering Facility: [facility] Address: [address] [place] [address] Performed By: #### 2 4356-8 #### [facility] CLIA [id number] [address] [place] [address] [place] Leukocyte esterase Test strip Ql (U) Negative Normal Negative, 25 Francisco/uL [facility] Comment on above: Order Comment: Speci men Type: URINE SPECIMEN Ordering Facility: [facility] Address: [address] [place] [address] Performed By: #### 2 4356-8 #### [facility] CLIA [id number] [address] [place] [address] [place] Nitrite Ql (U) Negative Normal Negative [facility] Comment on above: Order Comment: Speci men Type: URINE SPECIMEN Ordering Facility: [facility] Address: [address] [place] [address] Performed By: #### 2 4356-8 #### [facility] CLIA [id number] [address] [place] [address] [place] pH (U) 6.0 [pH] Normal 5.0-8.0 [facility] Comment on above: Order Comment: Speci men Type: URINE SPECIMEN Ordering Facility: [facility] Address: [address] [place] [address] Performed By: #### 2 4356-8 #### [facility] CLIA [id number] [address] [place] [address] [place] Protein (U) [Mass/Vol] Trace Normal Trace , Negative [facility] Comment on above: Order Comment: Speci men Type: URINE SPECIMEN Ordering Facility: [facility] Address: [address] [place] [address] Performed By: #### 2 4356-8 #### [facility] CLIA [id number] [address] [place] [address] [place] RBC LM.HPF (Urine sed) [#/Area] 0-3 /HPF Normal 0-3 /HPF [facility] Comment on above: Order Comment: Speci men Type: URINE SPECIMEN Ordering Facility: [facility] Address: [address] [place] [address] Performed By: #### 2 4356-8 #### [facility] CLIA [id number] [address] [place] [address] [place] Specific gravity (U) [Rel density] 1.023 Normal 1.005-1.030 [facility] Comment on above: Order Comment: Speci men Type: URINE SPECIMEN Ordering Facility: [facility] Address: [address] [place] [address] Performed By: #### 2 4356-8 #### [facility] CLIA [id number] [address] [place] [address] [place] Urobilinogen Ql (U) Normal Normal Normal [facility] Comment on above: Order Comment: Speci men Type: URINE SPECIMEN Ordering Facility: [facility] Address: [address] [place] [address] Performed By: #### 2 4356-8 #### [facility] CLIA [id number] [address] [place] [address] [place] WBC LM.HPF (Urine sed) [#/Area] 0-5 /HPF Normal 0-5 /HPF [facility] Comment on above: Order Comment: Speci men Type: URINE SPECIMEN Ordering Facility: [facility] Address: [place] [address] Performed By: #### 2 4356-8 #### [facility] CLIA [id number] [address] [place] [id number] [place] [facility] XR CHEST 1V FRONTAL PORTon 0 12-20-2023 [...] Dec 20 2023 4:14PM EST [id number] Normal [facility] XR CHEST 2V FRONTAL/LATon XR CHEST 2V [...] Dec 21 2023 10:03AM EST [id number] Normal [facility] XR Chest PA and Lateralon Radiology Study observation (narrative) [facility] XR Chest PA and Lateralon IMPRESSION: Slight increase of the small right pleural effusion. A follow-up exam is recommended. Transcribed Using Voice Recognition Transcribe Date/Time: Dec 14 2023 1:14P Dictated by: JEFFREY KRUEGER MD This examination was interpreted and the report reviewed and electronically signed by: JEFFREY KRUEGER MD on Dec 14 2023 1:15PM [facility] * * *Final Report* * [...] cardiomediastinal silhouette. Bones and soft tissues: Unremarkable. [facility] Provider, Migel Hudson - 12/14/2023 * [...] MD on Dec 14 2023 1:15PM EST [facility] XR Chest PA and LateralOrder ed By: Ccf Provider on 12-14-2023 [facility] CNOVon 12-13-2023 CNOV Office Visit (BERNARD ) -- SAV RAYMUNDO ([id number]) 1950 Date Time Provider Department 12/13/23 2:00 PM TITA LANDRY During your visit today, we recorded the following information about you: Temperature Pulse Respiration Blood pressure 97.3 degrees 68/minute 16/minute 129/80 Weight Height 104 kg 1.829 m Tita Landry APRN.CNP 01/16/2024 10:44 PM Signed [facility] V[facility] Thoracic Walker DEPARTMENT OF THORACIC SURGERY OUTPATIENT VISIT DATE December 13, 2023 OUTPATIENT VISIT TYPE ESTABLISHED PT NAME: Sav Raymundo [facility] NO: [id number] THORACIC SURGEON: Ronaldo Flood M.D. 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 Normal [facility] XR CHEST 2V FRONTAL/LATon XR CHEST 2V [...] on Dec 14 2023 1:15PM EST [id number] [facility] XR Chest PA and Lateralon Radiology Study observation (narrative) [facility] CNOVon 12-03-2023 CNOV Office Visit (BERNARD ) -- SAV RAYMUNDO ([id number]) 1950 Date Time Provider Department 12/03/23 1:00 PM TITA LANDRY During your visit today, we recorded the following information about you: Temperature Pulse Respiration Blood pressure 97.8 degrees 74/minute 14/minute 120/78 Weight Height 102.4 kg 1.829 m Tita Landry APRN.CNP 12/30/2023 10:10 PM Signed Heart, Vascular and Thoracic Walker DEPARTMENT OF THORACIC SURGERY OUTPATIENT VISIT DATE December 03, 2023 OUTPATIENT VISIT TYPE ESTABLISHED PT NAME: Sav Raymundo [facility] NO: [id number] THORACIC SURGEON: Ronaldo Flood M.D. DATE OF SERVICE: 12/03/2023 PRINCIPAL DX: Recurrent Right Pleural Effusion SURGICAL HX 11/20/2023: R VATS pleural biopsy, right airframe and power plant mechanic and doxycycline pleurodesis, right Pleurx catheter [...] reactive proliferation. D[facility]. 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 Normal [facility] XR CHEST 2V FRONTAL/LATon XR CHEST 2V [...] on Dec 05 2023 12:53PM EST [id number] [facility] Office Visit ([facility] ) -- SAV RAYMUNDO ([id number]) 1950 Date Time Provider Department 11/29/23 3:00 PM TITA LANDRY During your visit today, we recorded the following information about you: Temperature Pulse Respiration Blood pressure 97.3 degrees 71/minute 14/minute 121/68 Weight Height 105.6 kg 1.829 m Tita Landry APRN.CNP 12/30/2023 9:20 PM Signed Heart, Vascular and Thoracic Walker DEPARTMENT OF THORACIC SURGERY OUTPATIENT VISIT DATE November 29, 2023 OUTPATIENT VISIT TYPE ESTABLISHED PT NAME: Sav Raymundo [facility]IN[facility] NO: [id number] THORACIC SURGEON: Ronaldo Flood M.D. 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 Flodo to further discuss. 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 Normal [facility] XR CHEST 2V FRONTAL/LATon XR CHEST 2V [...] on Nov 30 2023 4:59PM EST [id number] [facility] 11-24-2023 SANDRINE Telephone (BERNARD) -- SAV RAYMUNDO ([id number]) 1950 M Date Time Provider Department 11/24/23 RONALDO FLOOD During your visit today, we recorded the following information about you: Allergies As of Date: 11/24/2023 Noted Allergy Reaction TRAMADOL 12/15/2020 1 - Mental Status Change Date Reviewed: 11/23/2023 Reviewed by: Lilia Slater RN - Fully Assessed Primary Visit Diagnosis:Surgery follow-up [Z09] Order(s):XR CHEST 2V FRONTAL/LAT [[id number]] Order #: [id number] FUTURE Prescriptions as of 11/24/2023 - acetaminophen [...] Encounter Status:Closed by JACEK RODAS on 11/24/23 [facility] NM Heart Perfusion W stress and W radionuclide Scarlett 11-12-2023 * * *Final Report* * * DATE OF EXAM: Nov 12 2023 11:59AM [facility] 0006 - [place] CARDIAC PERF STRESS/PHARM / PROCEDURE REASON: multiple diagnoses * * * * Physician Interpretation * * * * Stress Kelp Cutter Report: [facility] DASH-2 Date of service: 11/12/2023 10:35:44 [...] later. See administered radiotracer and doses below. [facility] Date of service: 11/12/2023 10:35:44 AM [...] * * * Final * * * [place] CTA Report: [facility] Date of service: 11/12/2023 10:35:44 AM CTAC interpreting physician: Jose Dawson MD PATIENT: Name: SAV RAYMUNDO Age: 73 years Gender: M 1. Incidental Findings from limited non-diagnostic CTAC: - Coronary calcifications visualized. large right pleural effusion better evaluated on dedicated chest imaging * * * Final * * * Stress ECG Report: [facility] Date of service: 11/12/2023 10:35:44 AM Ordering physician: RONALDO FLOOD production specialist: Joan Almendarez Docking Saw Operator: Solange Mosley Interpreting physician: Jose Dawson MD Patient name: SAV RAYMUNDO Age: 73 years Gender: M Height: 182.88 cm BSA: 2.27 m Weight: 101.15 kg BMI: 30.2 kg/m Indication: Encounter for pre-procedural cardiovascular examination for non-cardiac surgery Stress ECG Conclusion: Conclusion: Normal Comments: Non-specific T wave abnormality at rest and (more content not included)... DIVISION OF RADIOLOGY Provider, [facility] - 11/12/2023 * * *Final Report* * * DATE OF EXAM: Nov 12 2023 11:59AM [facility] 0006 - [place] CARDIAC PERF STRESS/PHARM / PROCEDURE REASON: multiple diagnoses * * * * Physician Interpretation * * * * Stress Kelp Cutter Report: [facility] Date of service: 11/12/2023 10:35:44 AM Supervising [...] See administered radiotracer and doses below. [facility] [place] Date of service: 11/12/2023 10:35:44 AM Ordering [...] Final * * * [place] CTAC Report: [facility] Date of service: 11/12/2023 10:35:44 AM CTAC interpreting physician: Jose Dawson MD PATIENT: Name: SAV RAYMUNDO Age: 73 years Gender: M 1. Incidental Findings from limited non-diagnostic CTAC: - Coronary calcifications visualized. large right pleural effusion better evaluated on dedicated chest imaging * * * Final * * * Stress ECG Report: [facility] DASH-2 Date of service: 11/12/2023 10:35:44 AM Ordering physician: RONALDO FLOOD production specialist: Joan Almendarez Docking Saw Operator: Solange Mosley Interpreting physician: Jose Dawson MD [...] age. Peak bloo (more content not included)... [facility] NM Heart Perfusion W stress and W radionuclide IVOrdered By: Ccf Provider on 11-12-2023 [facility] No Panel Informationon 11-11 Radiology Study observation (narrative) [facility] US Chest limitedon [facility] XR Chest PA and Lateralon IMPRESSION: See result. 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: ALONSO Transcribe Date/Time: Nov 12 2023 8:27A Dictated by : BLAS NELSON MD This examination was interpreted and the report reviewed and electronically signed by: BLAS NELSON MD on Nov 12 2023 8:29AM [facility] DIVISION OF RADIOLOGY * * *Final Report* [...] the thoracic spine. DIVISION OF RADIOLOGY Provider, [facility] - 11/12/2023 * * *Final Report* * [...] the thoracic spine. IMPRESSION IMPRESSION: See result. 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: ALONSO Transcribe Date/Time: Nov 12 2023 8:27A Dictated by : BLAS NELSON MD This examination was interpreted and the report reviewed and electronically signed by: BLAS NELSON MD on Nov 12 2023 8:29AM EST [facility] XR Chest PA and LateralOrder ed By: Ccf Provider on 11-12-2023 [facility] Determination of appearance of body fluidon 10-01-2023 Appearance (Body fld) Hazy Clear [facility] Evaluation of color of body fluidon 10-01-2023 Color (Body fld) Yellow . [facility] Comment on above: Colorless to Pale Ye llow/Straw Xander 10-01-2023 L Specimen: [id number] Received: 10/02/23 Status: MARITA Nolasco Num: [id number] Spec Type: Cytology Subm Dr: Calin Clemente DO Tissues: A PLEURAL FLUID (RIGHT PLEURAL FLUID) Procedures: HE/2, Gross/Micro L4, Cyto Prepstain, PAPSTN Age/ Patient Sex Location Account Attending Physician Sav Raymundo 73/M [facility] [id number] Calin Clemente DO SPEC NUM: [id number] RECD: 10/02/23 STATUS: MARITA NOLASCO NUM: [id number] HALLIE: 10/01/[address]: Calin Clemente DO ENTERED: 10/02/23 [facility] DR: SPEC TYPE: Cytology DEPT: FAIZA NCYT ENTERED BY: [id number] RECV BY: [id number] ORDERED: HE/2, Gross/Micro L4, Cyto Prepstain, PAPSTN [...] are prepared. 1 cell blocks are prepared. ([place]) Specimen: [id number] Received: 10/02/23-1403 Status: MARITA Nolasco Num: [id number] Spec Type: Cytology Subm Dr: Calin Clemente DO Tissues: A PLEURAL FLUID (RIGHT PLEURAL FLUID) Procedures: HE/2, Gross/Micro L4, Cyto Prepstain, PAPSTN Patient: Sav Raymundo [id number] (Continued) Signed (signature on file) Jaspal Olmedo MD 10/03/23 1259 Normal [facility] Laboratory - Microbiology an d Antimicrobial susceptibilityOrdered By: Yuli Mariscal on 10-01-2023 Microscopic observation Gram stain Nom (Unsp spec) [facility] Manual body fluid eosinophil s/100 leukocyteson 10-01-2023 Eosinophils/100 WBC Manual cnt (Body fld) 0 % Not Estab. [facility] Comment on above: Performed at: [facility] - [facility] [address] [id number] Director: Norm Alcaraz PhD, Phone: [phone] Manual body fluid lymphocyte s/100 leukocyteson 10-01-2023 Lymphocytes/100 WBC Manual cnt (Body fld) 39 % Not Estab. [facility] Neutrophils/100 WBC Manual c nt (Body fld)on 10-01-2023 Neutrophils/100 WBC (Body fld) 5 % 0-24 [facility] No Panel InformationOrdered By: Yuli Mariscal on 10-01-2023 Acid Fast Smear [facility] AFB Specimen Processing [facility] No Panel Informationon 09-30 Body Fluid Comment TNP . [facility] Body Fluid Glucose 113 mg/dL . [facility] Comment on above: : BODY FLUID [...] 2007. Ninth edition (V9.1) [employer] [employer], [facility]; [place]: December 2008. Body Fluid Lining Cell TNP . [facility] Body Fluid Macrophages (%) 56 % Not Estab. [facility] Body Fluid pH TNP . [facility] Comment on above: Test not performed. Test is not approved for the collectionsite indicated.This test was developed and its performance characteristicsdetermined by [facility]. It has not been cleared orapproved by the Food and Drug Administration.The reference interval(s) and other method performance specificationshave not been established for this body fluid. The test result must beintegrated into the clinical context for interpretation.Performed at: [place] [address] [place] [id number] Director: Yan Escamilla MD, Phone: [phone] Body Fluid RBC 7000 /uL Not Estab. [facility] Body Fluid Total Nucleated Cells 1307 /mm3 0-499 [facility] Comment on above: Pleural Fluid, with <1000 Nucleated cells/uL has beenassociated with transudates while >1000 uL may be seenin exudates. Body Fluid Total Protein 3.7 g/dL . [facility] Comment on above: : BODY [...] 2008. Ninth Edition (V9.1) [employer] [facility], [facility]; [place]: December 2008.Performed at: [facility] [id number] Director: Norm Alcaraz PhD, Phone: [phone] Fungal Smear Result [facility] Miscellaneous Test Comment See comment [facility] Comment on above: Specimen Source: PL - Pleural Fluid - Pleural Fl - 401.000 Estimated glomerular filtrat ion rate (GFR) non- Americanon 09-11-2023 GFR/1.73 sq M.predicted among non-blacks MDRD (S/P/Bld) [Vol rate/Area] mL/min/{1.73_m2} >=60 [facility] Laboratory - Chemistry and C hemistry - challengeon 09-11-2023 Creatinine [Mass/Vol] 1.02 mg/dL 0.70-1.30 [facility] GFR/1.73 sq M.predicted MDRD (S/P/Bld) [Vol rate/Area] mL/min/{1.73_m2} >=60 [facility] Body fluid differential cell countOrdered By: Calin Clemente on 09-04-2023 Differential panel (Body fld) 50 % [facility] Comment on above: The reference interv al and other method performance specifications have not been established for this body fluid. The test result must be integrated into the clinical context for interpretation. Cell Count/Diff, Fluidon Appearance, Fluid Hazy Normal [facility] Comment on above: Order Comment: Body Fluid Source: Pleural Fluid Body Fluid Site: PLEURAL FLUID Result Comment: The reference interval and other method performance specifications have not been established for this body fluid. The test result must be integrated into the clinical context for interpretation. Performed By: #### F LCCDIFF #### [facility] [address] Color, Fluid Red-Brown Normal [facility] Comment on above: Order Comment: Body Fluid Source: Pleural Fluid Body Fluid Site: PLEURAL FLUID Result Comment: The reference interval and other method performance specifications have not been established for this body fluid. The test result must be integrated into the clinical context for interpretation. Performed By: #### F LCCDIFF #### [facility] [address] [place] [address] [place] Color, Fluid Supernatant Red-Brown Normal [facility] Comment on above: Order Comment: Body Fluid Source: Pleural Fluid Body Fluid Site: PLEURAL FLUID Result Comment: The reference interval and other method performance specifications have not been established for this body fluid. The test result must be integrated into the clinical context for interpretation. Performed By: #### F LCCDIFF #### [address] Eosinophils, Fluid 0 /100{WBC} Normal 0-3 [facility] Comment on above: Order Comment: Body Fluid Source: Pleural Fluid Body Fluid Site: PLEURAL FLUID Result Comment: PERF ORMED BY: [place] [address] PATHOLOGIST [employer]YWALL WORKER KATHY HENDRICKSON M.D. Performed By: #### F LCCDIFF #### [address] Lymphocytes, Fluid 38 % Normal [facility] Comment on above: Order Comment: Body Fluid Source: Pleural Fluid Body Fluid Site: PLEURAL FLUID Result Comment: The reference interval and other method performance specifications have not been established for this body fluid. The test result must be integrated into the clinical context for interpretation. Performed By: #### F LCCDIFF #### [address] Monocytes/Macrophages, Fluid 50 % Normal [facility] Comment on above: Order Comment: Body Fluid Source: Pleural Fluid Body Fluid Site: PLEURAL FLUID Result Comment: The reference interval and other method performance specifications have not been established for this body fluid. The test result must be integrated into the clinical context for interpretation. Performed By: #### F LCCDIFF #### [address] Neutrophil, Fluid 12 % Normal [facility] Comment on above: Order Comment: Body Fluid Source: Pleural Fluid Body Fluid Site: PLEURAL FLUID Result Comment: The reference interval and other method performance specifications have not been established for this body fluid. The test result must be integrated into the clinical context for interpretation. Performed By: #### F LCCDIFF #### [facility] [address] [place] [address] RBC, Fluid 37468 /uL Normal [facility] Comment on above: Order Comment: Body Fluid Source: Pleural Fluid Body Fluid Site: PLEURAL FLUID Result Comment: The reference interval and other method performance specifications have not been established for this body fluid. The test result must be integrated into the clinical context for interpretation. Performed By: #### F LCCDIFF #### [facility] [address] [place], Body Fluid 999 /uL Normal [facility] Comment on above: Order Comment: Body Fluid Source: Pleural Fluid Body Fluid Site: PLEURAL FLUID Result Comment: The reference interval and other method performance specifications have not been established for this body fluid. The test result must be integrated into the clinical context for interpretation. Performed By: #### F LCCDIFF #### [facility] [address] [place] [id number] [facility] Color of Spun Body fluidOrde red By: Calin Clemente on 09-04-2023 Color (Spun body fld) Red-brown [facility] Comment on above: The reference interv al and other method performance specifications have not been established for this body fluid. The test result must be integrated into the clinical context for interpretation. Determination of appearance of body fluidOrdered By: Calin Clemente on 09-04-2023 Appearance (Body fld) Hazy [facility] Comment on above: The reference interv al and other method performance specifications have not been established for this body fluid. The test result must be integrated into the clinical context for interpretation. Evaluation of color of body fluidOrdered By: Calin Clemente on 09-04-2023 Color (Body fld) Red-brown [facility] Comment on above: The reference interv al and other method performance specifications have not been established for this body fluid. The test result must be integrated into the clinical context for interpretation. Xander 09-04-2023 L Specimen: [id number] Received: 09/06/23 Status: MARITA Nolasco Num: [id number] Spec Type: Cytology Subm Dr: Calin Clemente DO Tissues: A PLEURAL FLUID (PLEUR) Procedures: HE/2, Gross/Micro L4, AE1-AE3, CALRETININ, CK20, CK 7, TTF1, Cyto Prepstain, NKX3.1, MOC31, SOX-10, PAPSTN Age/ Patient Sex Location Account Attending Physician Sav Raymundo 73/M [facility] [id number] Calin Clemente DO SPEC NUM: [id number] RECD: 09/06/23 STATUS: MARITA NOLASCO NUM: [id number] HALLIE: 09/04/23-[address] [facility] [address]: Calin Clemente DO ENTERED: 09/06/23-1404 [facility] [address]: SPEC TYPE: Cytology DEPT: CNG ENTERED BY: [id number] RECV BY: [id number] ORDERED: HE/2, Gross/Micro L4, AE1-AE3, CALRETININ, CK20, [...] [id number] Received: 09/06/23 Status: MARITA Gaurav Num: [id number] Spec Type: Cytology Subm Dr: Calin Clemente DO Tissues: A PLEURAL FLUID (PLEUR) Procedures: HE/2, Gross/Micro L4, AE1-AE3, CALRETININ, CK20, CK 7, TTF1, Cyto Prepstain, NKX3.1, MOC31, SOX-10, PAPSTN Patient: Sav Raymundo Pepe [id number] (Continued) Signed (signature on file) Jaspal Olmedo MD 09/12/23 1632 Normal [facility] Laboratory - Chemistry and C hemistry - challengeon 09-04-2023 Cholesterol [Mass/Vol] 59 mg/dL <=200 [facility] Laboratory - Microbiology an d Antimicrobial susceptibilityOrdered By: Yuli Mariscal on 09-04-2023 Microscopic observation Gram stain Nom (Unsp spec) [facility] Manual body fluid eosinophil s/100 leukocytesOrdered By: Calin Clemente on 09-04-2023 Eosinophils/100 WBC Manual cnt (Body fld) 0 /100{WBC} 0-3 [facility] Manual body fluid erythrocyt es count (number/volume)Ordered By: Calin Clemente on 09-04-2023 RBC Manual cnt (Body fld) [#/Vol] 20369 /uL [facility] Comment on above: The reference interv al and other method performance specifications have not been established for this body fluid. The test result must be integrated into the clinical context for interpretation. Manual body fluid lymphocyte s/100 leukocytesOrdered By: Calin Clemente on 09-04-2023 Lymphocytes/100 WBC Manual cnt (Body fld) 38 % [facility] Comment on above: The reference interv al and other method performance specifications have not been established for this body fluid. The test result must be integrated into the clinical context for interpretation. Neutrophils/100 WBC Manual c nt (Body fld)Ordered By: Calin Clemente on 09-04-2023 Neutrophils/100 WBC (Body fld) 12 % [facility] Comment on above: The reference interv al and other method performance specifications have not been established for this body fluid. The test result must be integrated into the clinical context for interpretation. No Panel InformationOrdered By: Yuli Mariscal on 09-04-2023 Acid Fast Smear [facility] AFB Specimen Processing [facility] No Panel Informationon 09-03 Body Fluid Amylase 20 U/L . [facility] Comment on above: : BODY FLUID TYPE : AMYLASE : : : : : Lymph : 50 - 83 : : : : : Peritoneal : : : Fluid : 88 - 109 : : : : : Saliva : : : (Mixed Glands) : 95497 - 174530 : : : : Adeel Das V. Reference Intervals for Adults and Children 2007. Ninth Edition (V9.1) [employer] [facility], [facility]; [place]: December 2008.Performed at: [facility], [place], [place] [id number] Director: Norm Alcaraz PhD, Phone: [phone] Body Fluid Glucose 119 mg/dL . [facility] Comment on above: : BODY FLUID [...] 76 - 288 : : : : Biddle W, Adeel V. Reference Intervals for Adults and Children 2007. Ninth edition (V9.1) [facility], [facility]; [place]: December 2008. Body Fluid pH 8.2 Not Estab. [facility] Comment on above: This test was develo ped and its performance characteristicsdetermined by [facility]. It has not been cleared orapproved by the Food and Drug Administration.The reference interval(s) and other method performance specificationshave not been established for this body fluid. The test result must beintegrated into the clinical context for interpretation.Performed at: [facility] [place], [place] [id number] Director: Yan Escamilla MD, Phone: [phone] Body Fluid Total Protein 3.7 g/dL . [facility] Comment on above: : BODY [...] 2008. Ninth Edition (V9.1) [facility], [facility]; [place]: December 2008. Body Fluid Triglycerides 21 mg/dL Not Estab. [facility] Comment on above: The reference interv al(s) and other method performance specificationshave not been established for this body fluid. The test result must beintegrated into the clinical context for interpretation.Performed at: [employer] [id number] Director: Norm Alcaraz PhD, Phone: [phone] Fungal Smear Result [facility] Miscellaneous Test Comment See comment [facility] Comment on above: Specimen Source: PL - Pleural Fluid - Pleural Fl - 401.000 No Panel InformationOrdered By: Calin Clemente on 09-04-2023 Body Fluid Total Nucleated Cells 999 /uL [facility] Comment on above: The reference interv al and other method performance specifications have not been established for this body fluid. The test result must be integrated into the clinical context for interpretation. Serum or plasma free cefurox christine measurement (mass/volume)on 09-04-2023 Cefuroxime free [Mass/Vol] TNP . [facility] Comment on above: Test not [...] 09-04-2023 Rheumatoid factor Qn TNP [IU]/mL . [facility] Comment on above: Test not performed. No serum gel received.Contacted Shelby at your facility 09/06/2023Test not performed. No serum gel received.Contacted Shreya at your facility 09/06/2023--- 09/06/23 1311 ---RF previously reported as: Test not performed IU/mLTest not performed. No serum gel received.Contacted Shelby at your facility 09/06/2023 Adenosine monophosphate.cycl ic [Moles/Vol]on 08-28-2023 Cyclic Citrullinated Peptid IgG/IgA 1 units 0-19 [facility] Comment on above: Negative <20 Weak po sitive 20 - 39 Moderate positive 40 - 59 Strong positive >59Performed at: [facility] [id number] Director: Norm Alcaraz PhD, Phone: [phone] Negative <20 Weak po sitive 20 - 39 Moderate positive 40 - 59 Strong positive >59Performed at: [facility] [place], [place] [address], [place] [id number] Director: Norm Alcaraz PhD, Phone: [phone] Atypical perinuclear antineu trophil cytoplasmic antibodies measurementon 08-28-2023 Neutrophil cytoplasmic Ab.perinuclear.atypica l IF (S) [Titer] <1:20 titer Neg:<1:20 [facility] Comment on above: The atypical pANCA p attern has been observed in asignificant percentage of patients with ulcerative colitis,primary sclerosing cholangitis and autoimmune hepatitis.Performed at: [facility] [place], [place] [id number] Director: Yan Escamilla MD, Phone: [phone] at: [employer] [place], [place] [id number] Director: Norm Alcaraz PhD, Phone: [phone] Histoplasma capsulatum antib olga detection by complement fixationon 08-28-2023 H. capsulatum Ab CF Ql (S) Negative Neg:<1:2 [facility] Comment on above: Performed at: [facility] [address] [id number] Director: Yan Escamilla MD, Phone: [phone] Myeloperoxidase Ab [Units/vo lume] in Serum by Immunoassayon 08-28-2023 Myeloperoxidase Ab IA Qn (S) <0.2 units 0.0-0.9 [facility] No Panel Informationon 08-27 Miscellaneous Test COMMENT . [facility] Comment on above: Test Ordered: [id number] [place] A IgG/IgM AntibodyCoxsackie A7 IgG 1:100 [...] Negative titer BN Reference Range: Neg:<1:10Performed at: [facility] [address] [id number] Director: Yan Escamilla MD, Phone: [phone] at: [facility] [address] [id number] Director: Norm Alcaraz PhD, Phone: [phone] Perinuclear ANCA (p-ANCA) Antibody <1:20 titer Neg:<1:20 [facility] Comment on above: The presence of posi tive fluorescence exhibiting P-ANCA orC-ANCA patterns alone is not specific for the diagnosis ofWegener's Granulomatosis (WG) or microscopic polyangiitis.Decisions about treatment should not be based solely onANCA IFA results. The International ANCA Group Consensusrecommends follow up testing of positive sera with both IL-3 and MPO-ANCA enzyme immunoassays. As many as 5% serumsamples are positive only by EIA. Ref. AM J Clin Pkflvr7040;111:507-513. Histoplasma Galactomannan Antigen Negative <0.5 ng/mL [facility] Comment on above: This test was develo ped and its performance characteristicsdetermined by [employer]. It has not been cleared orapproved by the Food and Drug Administration.Performed at: [facility] [place] [address], [place] [id number] Director: Janine Goodman MD, Phone: [phone] Proteinase 3 Ab [Units/volum e] in Serum by Immunoassayon 08-28-2023 Proteinase 3 Ab IA Qn (S) <0.2 units 0.0-0.9 [facility] SCL-70 extractable nuclear A b IA Qn (S)on 08-28-2023 Scl-70 (Scleroderma) Antibody <0.2 AI 0.0-0.9 [facility] Comment on above: Performed at: [employer] [place], [place] [id number] Director: Norm Alcaraz PhD, Phone: [phone] Performed at: [employer] [place], [place] [id number] Director: Norm Alcaraz PhD, Phone: [phone] Serum angiotensin converting enzyme (NANDO) measurementon 08-28-2023 Angiotensin converting enzyme [Catalytic activity/Vol] 34 U/L 14-82 [facility] Comment on above: Performed at: [employer] [place], [place] [id number] Director: Norm Alcaraz PhD, Phone: [phone] Serum classic neutrophil cyt oplasmic antibody titer by immunofluorescenceon 08-28-2023 Neutrophil cytoplasmic Ab.classic IF (S) [Titer] <1:20 titer Neg:<1:20 [facility] Serum or plasma rheumatoid f actor measurement (units/volume)on 08-28-2023 Rheumatoid factor Qn [IU]/mL <14.0 [facility] Comment on above: Performed at: [employer] [place], [place] [id number] Director: Norm Alcaraz PhD, Phone: [phone] Laboratory - Chemistry and C hemistry - challengeon 08-21-2023 Cobalamin (Vitamin B12) [Mass/Vol] 3286.0 pg/mL 193.0-986.0 [facility] TSH Qn 1.287 m[IU]/L 0.358-3.740 [facility] Laboratory - Hematology and Cell countson 08-21-2023 ESR (Bld) [Velocity] 126 mm/h <=20 [facility] No Panel Informationon 08-20 C-Reactive Protein, Quantitative 4.28 mg/dL <=0.50 [facility] Folate 21.60 ng/mL 8.60-58.90 [facility] Serum or plasma free cefurox christine measurement (mass/volume)on 08-21-2023 Cefuroxime free [Mass/Vol] Negative Negative [facility] Comment on above: Performed at: [facility] [employer] [address] Director: Norm Alcaraz PhD, Phone: [phone] Basophils Auto (Bld) [#/Vol] on 08-15-2023 Basophils (Bld) [#/Vol] 0.0 10 3/uL 0.0-0.1 [facility] Basophils/100 WBC Auto (Bld) on 08-15-2023 Basophils/100 WBC (Bld) 0.2 % 0.2-2.0 [facility] Eosinophils/100 WBC Auto (Bl d)on 08-15-2023 Eosinophils/100 WBC (Bld) 0.0 % 0.9-7.0 [facility] Erythrocyte distribution wid th Auto (RBC) [Ratio]on 08-15-2023 Erythrocyte distribution width (RBC) [Ratio] 12.5 % 11.0-15.0 [facility] Estimated glomerular filtrat ion rate (GFR) non- Americanon 08-15-2023 GFR/1.73 sq M.predicted among non-blacks MDRD (S/P/Bld) [Vol rate/Area] mL/min/{1.73_m2} >=60 [facility] Globulin Calc (S) [Mass/Vol] on 08-15-2023 Globulin (S) [Mass/Vol] 4.7 g/dL [facility] Hematocrit Auto (Bld) [Volum e fraction]on 08-15-2023 Hematocrit (Bld) [Volume fraction] 34.7 % 42.0-54.0 [facility] Hemoglobin [Mass/volume] in Bloodon 08-15-2023 Hemoglobin (Bld) [Mass/Vol] 11.2 g/dL 14.0-18.0 [facility] Laboratory - Chemistry and C hemistry - challengeon 08-15-2023 Albumin [Mass/Vol] 3.2 g/dL 3.4-5.0 [facility] ALP [Catalytic activity/Vol] 66 U/L 46-116 [facility] ALT [Catalytic activity/Vol] 33 U/L 16-63 [facility] AST [Catalytic activity/Vol] 24 U/L 15-37 [facility] Bilirubin [Mass/Vol] 0.6 mg/dL 0.2-1.0 [facility] Calcium [Mass/Vol] 8.9 mg/dL 8.5-10.1 [facility] Chloride [Moles/Vol] 101 mmol/L 98-107 [facility] CO2 [Moles/Vol] 27.4 mmol/L 21.0-32.0 [facility] Creatinine [Mass/Vol] 1.06 mg/dL 0.70-1.30 [facility] GFR/1.73 sq M.predicted MDRD (S/P/Bld) [Vol rate/Area] mL/min/{1.73_m2} >=60 [facility] Glucose [Mass/Vol] 115 mg/dL 74-106 [facility] Natriuretic peptide B (Bld) [Mass/Vol] 397.0 pg/mL <=900.0 [facility] Potassium [Moles/Vol] 3.8 mmol/L 3.5-5.1 [facility] Protein [Mass/Vol] 7.9 g/dL 6.4-8.2 [facility] Sodium [Moles/Vol] 138 mmol/L 136-145 [facility] Urea nitrogen [Mass/Vol] 15.0 mg/dL 7.0-18.0 [facility] Urea nitrogen/Creatinine [Mass ratio] 14.2 mg/mg [facility] Laboratory - Hematology and Cell countson 08-15-2023 ESR (Bld) [Velocity] mm/h <=20 [facility] Immature granulocytes/100 WBC (Bld) 0.4 % 0.0-0.5 [facility] Laboratory - Microbiology an d Antimicrobial susceptibilityon 08-15-2023 SARS-CoV-2 (COVID-19) RNA BRYN+probe Ql (Unsp spec) Negative NEGATIVE [facility] Comment on above: This test [...] Auto (Bld) [#/Vol] 9.9 10 3/uL 4.0-11.0 [facility] Lymphocytes Auto (Bld) [#/Vo l]on 08-15-2023 Lymphocytes (Bld) [#/Vol] 0.8 10 3/uL 1.2-3.8 [facility] Lymphocytes/100 WBC Auto (Bl d)on 08-15-2023 Lymphocytes/100 WBC (Bld) 8.0 % 20.5-60.0 [facility] MCH Auto (RBC) [Entitic mass ]on 08-15-2023 MCH (RBC) [Entitic mass] 32.3 pg 25.9-34.0 [facility] MCHC Auto (RBC) [Mass/Vol]on 08-15-2023 MCHC (RBC) [Mass/Vol] 32.3 g/dL 29.9-35.2 [facility] MCV Auto (RBC) [Entitic vol] on 08-15-2023 MCV (RBC) [Entitic vol] 100.0 fL 80.0-94.0 [facility] Monocytes Auto (Bld) [#/Vol] on 08-15-2023 Monocytes (Bld) [#/Vol] 1.0 10 3/uL 0.3-0.8 [facility] Monocytes/100 WBC Auto (Bld) on 08-15-2023 Monocytes/100 WBC (Bld) 9.9 % 1.7-12.0 [facility] Neutrophils Auto (Bld) [#/Vo l]on 08-15-2023 Neutrophils (Bld) [#/Vol] 8.1 10 3/uL 1.4-6.5 [facility] Neutrophils/100 WBC Auto (Bl d)on 08-15-2023 Neutrophils/100 WBC (Bld) 81.5 % 43.0-75.0 [facility] No Panel Informationon C-Reactive Protein, Quantitative 6.36 mg/dL <=0.50 [facility] Eosinophils # (Auto) 0.0 10 3/uL 0.0-0.7 [facility] Immature Granulocyte # (Auto) 0.04 10 3/uL 0.00-0.03 [facility] Troponin I High Sensitivity 11.9 pg/mL 4.0-76.1 [facility] Comment on above: CUT-OFF POINTS [...] INFORMATION. Bedside Influenza Type A Antigen Negative [facility] Comment on above: Negative for Flu A p rotein antigen. Infection due to Flu Acannot be ruled out. Flu A antigen in the sample may bebelow the detection limit of the test. Bedside Influenza Type B Antigen Negative [facility] Comment on above: Negative for Flu B p rotein antigen. Infection due to Flu Bcannot be ruled out. Flu B antigen in the sample may bebelow the detection limit of the test. Platelet mean volume Auto (B ld) [Entitic vol]on 08-15-2023 Platelet mean volume (Bld) [Entitic vol] 9.5 fL 9.5-13.5 [facility] Platelets Auto (Bld) [#/Vol] on 08-15-2023 Platelets (Bld) [#/Vol] 288 10 3/uL 150-450 [facility] RBC Auto (Bld) [#/Vol]on RBC (Bld) [#/Vol] 3.47 10 6/uL 4.70-6.10 [facility] Serum or plasma albumin/glob ulin mass ratioon 08-15-2023 Albumin/Globulin [Mass ratio] 0.7 {ratio} [facility] Serum or plasma anion gap de terminationon 08-15-2023 Anion gap [Moles/Vol] 13.4 mmol/L [facility] XR KNEE LEFT 4+ VIEWS (SPECI [...] on SatJan 16, 2023 10:52:01 AM EDT [facility] Comment on above: Order Comment: [...] SatAug 28, 2022 1:49:21 PM EDT Normal [facility] Comment on above: Order Comment: [...] SatAug 28, 2022 1:50:20 PM EDT Normal [facility] Comment on above: Order Comment: [...] SatAug 28, 2022 1:49:28 PM EDT Normal [facility] Comment on above: Order Comment: [...] on SatAug 28, 2022 1:50:37 PM EDT [facility] Comment on above: Order Comment: Injur y/Trauma or Illness?:Illness/Other How long have you had these symptoms (acute/chronic)?:Unknown Reason for exam?:n/a History of cancer?:n/a Surgeries, chemotherapy, or radiation?:n/a Type of Exam?:Unknown Additional signs and symptoms?:n/a CBC AUTO DIFFon 03-19-2022 BASO # 0.1 103/ul Normal 0.0-0.1 [facility] Comment on above: Performed By: #### D ATCBC #### [facility] [address] [place] [address] Dr. Joni Sanders Basophils/100 WBC (Bld) 1.0 % Normal 0.2-2.0 [facility] Comment on above: Performed By: #### D ATCBC #### [facility] [address] [place] [address] Dr. Joni Sanders EO # 0.1 103/ul Normal 0.0-0.7 [facility] Comment on above: Performed By: #### D ATCBC #### [facility] [address] [place] [address] Dr. Joni Sanders Eosinophils/100 WBC (Bld) 2.0 % Normal 0.9-7.0 [facility] Comment on above: Performed By: #### D ATCBC #### [facility] [address] [place] [address] Dr. Joni Sanders Erythrocyte distribution width (RBC) [Ratio] 12.4 % Normal 11.0-15.0 [facility] Comment on above: Performed By: #### D ATCBC #### [facility] [address] [place] [address] Dr. Joni Sanders Hematocrit (Bld) [Volume fraction] 43.7 % Normal 42.0-54.0 [facility] Comment on above: Performed By: #### D ATCBC #### [facility] [address] [place] [address] Dr. Joni Sanders Hemoglobin (Bld) [Mass/Vol] 14.6 g/dL Normal 14.0-18.0 [facility] Comment on above: Performed By: #### D ATCBC #### [facility] [address] [place] [address] Dr. Joni Sanders IG # 0.02 10e3/ul Normal 0.00-0.03 [facility] Comment on above: Performed By: #### D ATCBC #### [facility] [address] [place] [address] Dr. Joni Sanders IG % 0.3 % Normal 0.0-0.5 [facility] Comment on above: Performed By: #### D ATCBC #### [facility] [address] [place] [address] Dr. Joni Sanders LYMPH # 2.0 103/ul Normal 1.2-3.8 [facility] Comment on above: Performed By: #### D ATCBC #### [facility] [address] [place] [address] Dr. Joni Sanders Lymphocytes/100 WBC (Bld) 33.3 % Normal 20.5-60.0 [facility] Comment on above: Performed By: #### D ATCBC #### [facility] [address] [place] [address] Dr. Joni Sanders MCH (RBC) [Entitic mass] 32.6 pg Normal 25.9-34.0 [facility] Comment on above: Performed By: #### D ATCBC #### [facility] [address] [place] [address] Dr. Joni Sanders MCHC (RBC) [Mass/Vol] 33.4 g/dL Normal 29.9-35.2 [facility] Comment on above: Performed By: #### D ATCBC #### [facility] [address] [place] [address] Dr. Joni Sanders MCV (RBC) [Entitic vol] 97.5 fL Critically high 80.0-94.0 [facility] Comment on above: Performed By: #### D ATCBC #### [facility] [address] [place] [address] Dr. Joni Sanders MONO # 0.6 103/ul Normal 0.3-0.8 [facility] Comment on above: Performed By: #### D ATCBC #### [facility] [address] [place] [address] Dr. Joni Sanders Monocytes/100 WBC (Bld) 9.8 % Normal 1.7-12.0 [facility] Comment on above: Performed By: #### D ATCBC #### [facility] [address] [place] [address] Dr. Joni Sanders NEUT # 3.2 103/ul Normal 1.4-6.5 [facility] Comment on above: Performed By: #### D ATCBC #### [facility] [address] [place] [address] Dr. Joni Sanders Neutrophils/100 WBC (Bld) 53.6 % Normal 43.0-75.0 [facility] Comment on above: Performed By: #### D ATCBC #### [facility] [address] [place] [address] Dr. Joni Sanders Platelet mean volume (Bld) [Entitic vol] 9.9 fL Normal 9.5-13.5 [facility] Comment on above: Performed By: #### D ATCBC #### [facility] [address] [place] [address] Dr. Joni Sanders PLT 239 103/ul Normal 150-450 [facility] Comment on above: Performed By: #### D ATCBC #### [facility] [address] [place] [address] Dr. Joni Sanders RBC 4.48 106/ul Critically low 4.70-6.10 [facility] Comment on above: Performed By: #### D ATCBC #### [facility] [address] [place] [address] Dr. Joni Sanders WBC 5.9 103/ul Normal 4.0-11.0 [facility] Comment on above: Performed By: #### D ATCBC #### [facility] [address] [place] [address] Dr. Joni Sanders SILVIA- BMP WITH LIPIDon 2021 Anion gap [Moles/Vol] 12.7 mmol/L Normal [facility] Comment on above: Performed By: #### D ATBMP #### [facility] [address] [place] [address] Dr. Joni Sanders Calcium [Mass/Vol] 9.0 mg/dL Normal 8.5-10.1 [facility] Comment on above: Performed By: #### D ATBMP #### [facility] [address] [address] [address] Joni Sanders Chloride [Moles/Vol] 104 mmol/L Normal 98-107 [facility] Comment on above: Performed By: #### D ATBMP #### [facility] [address] [address] [address] Joni Sanders Cholesterol [Mass/Vol] 188 mg/dL Normal <=200 [facility] Comment on above: Performed By: #### D ATBMP #### [facility] [address] [address] [address] Joni Sanders Cholesterol in HDL [Mass/Vol] 45 mg/dL Normal 40-60 [facility] Comment on above: Performed By: #### D ATBMP #### [facility] [address] [address] [address] Joni Sanders Cholesterol in LDL [Mass/Vol] 102.2 mg/dL Normal [facility] Comment on above: Performed By: #### D ATBMP #### [facility] [address] [address] [address] Joni Sanders CO2 [Moles/Vol] 27.7 mmol/L Normal 21.0-32.0 [facility] Comment on above: Performed By: #### D ATBMP #### [facility] [address] [address] [address] Joni Sanders Creatinine [Mass/Vol] 1.00 mg/dL Normal 0.70-1.30 [facility] Comment on above: Performed By: #### D ATBMP #### [facility] [address] [address] [address] Joni Sanders EGFR-AF OMANI >60 Normal >=60 [facility] Comment on above: Performed By: #### D ATBMP #### [facility] [address] [address] [address] Joni Sanders EGFR-NON AF OMANI >60 Normal >=60 [facility] Comment on above: Performed By: #### D ATBMP #### [facility] [address] [address] [address] Joni Sanders Glucose [Mass/Vol] 107 mg/dL Critically high 74-106 T [facility] Comment on above: Performed By: #### D ATBMP #### [facility] [address] [address] [address] Joni Sanders HDL NORMAL > or = 60 mg/dl - LO W CARDIOVASCULAR RISK <40 mg/dl - HIGH CARDIOVASCULAR RISK Normal [facility] Comment on above: Performed By: #### D ATBMP #### [facility] [address] [place] [address] Dr. Joni Sanders LDL CALC NORMAL SEE BELOW Normal [facility] Comment on above: Result Comment: <100 mg/dl OPTIMAL 100 - 129 mg/dl NEAR OR ABOVE OPTIMAL 130 - 159 mg/dl BORDERLINE HIGH 160 - 189 mg/dl HIGH >190 mg/dl VERY HIGH Performed By: #### D ATBMP #### [facility] [address] [address] [address] Joni Sanders Potassium [Moles/Vol] 4.4 mmol/L Normal 3.5-5.1 [facility] Comment on above: Performed By: #### D ATBMP #### [facility] [address] [place] [address] Dr. Joni Sanders Sodium [Moles/Vol] 140 mmol/L Normal 136-145 [facility] Comment on above: Performed By: #### D ATBMP #### [facility] [address] [address] [address] Joni Sanders Triglyceride [Mass/Vol] 204 mg/dL Critically high <=150 [facility] Comment on above: Performed By: #### D ATBMP #### [facility] [address] [address] [address] Joni Sanders Urea nitrogen [Mass/Vol] 22.0 mg/dL Critically high 7.0-18.0 [facility] Comment on above: Performed By: #### D ATBMP #### [facility] [address] [place], [place] [address] Dr. Joni Sanders Urea nitrogen/Creatinine [Mass ratio] 22.0 mg/mg Normal [facility] Comment on above: Performed By: #### D ATBMP #### [facility] [address] [address] [address] Joni Sanders VLDL CALC 40.8 mg/dL Normal [facility] Comment on above: Performed By: #### D ATBMP #### [facility] [address] [address] [address] Joni Sanders Vital Signs Date Time Vital Sign Value Performing Clinician Facility 03-25-2025 11:17-0400 Body height 182.9 cm Jameledwin Chowdary DPM Work Phone: [facility] 03-25-2025 11:17-0400 Body mass index (BMI) [Ratio] 25.58 kg/m2 Jameledwin Chowdary DPM Work Phone: [facility] 03-25-2025 11:17-0400 Body weight 85.55 kg Jamel Amee DPM Work Phone: [facility] 03-17-2025 10:20-0400 Body height 182.9 cm Jameledwin Chowdary DPM Work Phone: [facility] 03-17-2025 10:20-0400 Body mass index (BMI) [Ratio] 25.58 kg/m2 Jameledwin Chowdary DPM Work Phone: [facility] 03-17-2025 10:20-0400 Body weight 85.55 kg Jameledwin Chowdary DPM Work Phone: [facility] 03-12-2025 08:48-0400 Body height 182.9 cm Jameledwin Chowdary DPM Work Phone: [facility] 03-12-2025 08:48-0400 Body mass index (BMI) [Ratio] 25.58 kg/m2 Jamel Amee DPM Work Phone: [facility] 03-12-2025 08:48-0400 Body weight 85.55 kg Jameledwin Chowdary DP Work Phone: [facility] 02-25-2025 10:02-0400 Body height 182.9 cm Zabrina Suarez MD Work Phone: [facility] 02-25-2025 10:02-0400 Body mass index (BMI) [Ratio] 26.01 kg/m2 Zabrina Suarez MD Work Phone: [facility] 02-25-2025 10:02-0400 Body weight 87 kg Zabrina Suarez MD Work Phone: [facility] 02-25-2025 10:02-0400 Diastolic blood pressure 78 mm[Hg] Zabrina Suarez MD Work Phone: [facility] 02-25-2025 10:02-0400 Heart rate 91 /min Zabrina Suarez MD Work Phone: [facility] 02-25-2025 10:02-0400 Systolic blood pressure 123 mm[Hg] Zabrina Suarez MD Work Phone: [facility] 01-26-2025 13:02-0400 Body height 182.9 cm Jose Antonio Hopper MD Work Phone: [facility] 01-26-2025 13:02-0400 Body mass index (BMI) [Ratio] 25.09 kg/m2 Jose Antonio Hopper MD Work Phone: [facility] 01-26-2025 13:02-0400 Body temperature 98.6 [degF] Jose Antonio Hopper MD Work Phone: [facility] 01-26-2025 13:02-0400 Body weight 83.92 kg Jose Antonio Hopper MD Work Phone: [facility] 01-26-2025 13:02-0400 Diastolic blood pressure 78 mm[Hg] Jose Antonio Hopper MD Work Phone: [facility] 01-26-2025 13:02-0400 Heart rate 86 /min Jose Antonio Hopper MD Work Phone: [facility] 01-26-2025 13:02-0400 Respiratory rate 17 /min Jose Antonio Hopper MD Work Phone: [facility] 01-26-2025 13:02-0400 SaO2% (BldA) [Mass fraction] 96 % Jose Antonio Hopper MD Work Phone: [facility] 01-26-2025 13:02-0400 Systolic blood pressure 125 mm[Hg] Jose Antonio Hopper MD Work Phone: [facility] 01-11-2025 09:04-0400 Body mass index (BMI) [Ratio] 25.35 kg/m2 Triston Riggs MD Work Phone: [facility] 01-11-2025 09:04-0400 Body temperature 98.01 [degF] Triston Riggs MD Work Phone: [facility] 01-11-2025 09:04-0400 Body weight 84.8 kg Triston Riggs MD Work Phone: [facility] 01-11-2025 09:04-0400 Diastolic blood pressure 74 mm[Hg] Triston Riggs MD Work Phone: [facility] 01-11-2025 09:04-0400 Heart rate 85 /min Triston Riggs MD Work Phone: [facility] 01-11-2025 09:04-0400 Respiratory rate 16 /min Triston Riggs MD Work Phone: [facility] 01-11-2025 09:04-0400 SaO2% (BldA) [Mass fraction] 86 % Triston Riggs MD Work Phone: [facility] 01-11-2025 09:04-0400 Systolic blood pressure 124 mm[Hg] Triston Riggs MD Work Phone: [facility] 11-23-2024 22:15-0400 Body temperature 97.2 [degF] Triston Riggs MD Work Phone: [facility] 11-23-2024 22:15-0400 Diastolic blood pressure 74 mm[Hg] Triston Riggs MD Work Phone: [facility] 11-23-2024 22:15-0400 Heart rate 88 /min Triston Riggs MD Work Phone: [facility] 11-23-2024 22:15-0400 Respiratory rate 16 /min Triston Riggs MD Work Phone: [facility] 11-23-2024 22:15-0400 SaO2% (BldA) [Mass fraction] 98 % Triston Riggs MD Work Phone: [facility] 11-23-2024 22:15-0400 Systolic blood pressure 120 mm[Hg] Triston Riggs MD Work Phone: [facility] 11-20-2024 09:04-0400 Body height 182.9 cm Zac Mendiola MD Work Phone: [facility] 11-20-2024 09:04-0400 Body mass index (BMI) [Ratio] 23.46 kg/m2 Zac Mendiola MD Work Phone: [facility] 11-20-2024 09:04-0400 Body weight 78.47 kg Zac Mendiola MD Work Phone: [facility] 11-20-2024 09:04-0400 Diastolic blood pressure 68 mm[Hg] Zac Mendiola MD Work Phone: [facility] 11-20-2024 09:04-0400 Heart rate 64 /min Zac Mendiola MD Work Phone: [facility] 11-20-2024 09:04-0400 SaO2% (BldA) [Mass fraction] 99 % Zac Mendiola MD Work Phone: [facility] 11-20-2024 09:04-0400 Systolic blood pressure 108 mm[Hg] Zac Mendiola MD Work Phone: [facility] 11-19-2024 13:58-0400 Body temperature 96.8 [degF] Triston Riggs MD Work Phone: [facility] 11-19-2024 13:58-0400 Diastolic blood pressure 83 mm[Hg] Triston Riggs MD Work Phone: [facility] 11-19-2024 13:58-0400 Heart rate 81 /min Triston Riggs MD Work Phone: [facility] 11-19-2024 13:58-0400 Respiratory rate 16 /min Triston Riggs MD Work Phone: [facility] 11-19-2024 13:58-0400 SaO2% (BldA) [Mass fraction] 97 % Triston Riggs MD Work Phone: [facility] 11-19-2024 13:58-0400 Systolic blood pressure 129 mm[Hg] Triston Riggs MD Work Phone: [facility] 11-13-2024 13:02-0400 Body height 182.9 cm Jose Antonio Hopper MD Work Phone: [facility] 11-13-2024 13:02-0400 Body mass index (BMI) [Ratio] 26.99 kg/m2 Jose Antonio Hopper MD Work Phone: [facility] 11-13-2024 13:02-0400 Body temperature 98.6 [degF] Jose Antonio Hopper MD Work Phone: [facility] 11-13-2024 13:02-0400 Body weight 90.27 kg Jose Antonio Hopper MD Work Phone: [facility] 11-13-2024 13:02-0400 Diastolic blood pressure 75 mm[Hg] Jose Antonio Hopper MD Work Phone: [facility] 11-13-2024 13:02-0400 Heart rate 81 /min Jose Antonio Hopper MD Work Phone: [facility] 11-13-2024 13:02-0400 Respiratory rate 16 /min Jose Antonio Hopper MD Work Phone: [facility] 11-13-2024 13:02-0400 SaO2% (BldA) [Mass fraction] 96 % Jose Antonio Hopper MD Work Phone: [facility] 11-13-2024 13:02-0400 Systolic blood pressure 125 mm[Hg] Jose Antonio Hopper MD Work Phone: [facility] 10-15-2024 08:44-0400 Body height 182.9 cm Zabrina Suarez MD Work Phone: [facility] 10-15-2024 08:44-0400 Body mass index (BMI) [Ratio] 27.12 kg/m2 Zabrina Suarez MD Work Phone: [facility] 10-15-2024 08:44-0400 Body temperature 97.9 [degF] Zabrina Suarez MD Work Phone: [facility] 10-15-2024 08:44-0400 Body weight 90.7 kg Zabrina Suarez MD Work Phone: [facility] 10-15-2024 08:44-0400 Diastolic blood pressure 83 mm[Hg] Zabrina Suarez MD Work Phone: [facility] 10-15-2024 08:44-0400 Heart rate 83 /min Zabrina Suarez MD Work Phone: [facility] 10-15-2024 08:44-0400 Systolic blood pressure 131 mm[Hg] Zabrina Suarez MD Work Phone: [facility] 10-14-2024 14:34-0400 Body height 182.9 cm Xiomara Ly APRN.CNP Work Phone: [facility] 10-14-2024 14:34-0400 Body mass index (BMI) [Ratio] 26.72 kg/m2 Xiomara Ly BOARD CERTIFIED MUSIC THERAPIST.PRODUCT DEMONSTRATOR Work Phone: [facility] 10-14-2024 14:34-0400 Body temperature 97.2 [degF] Xiomarakarey Ly BOARD CERTIFIED MUSIC THERAPIST.PRODUCT DEMONSTRATOR Work Phone: [facility] 10-14-2024 14:34-0400 Body weight 89.36 kg Xiomara Ly BOARD CERTIFIED MUSIC THERAPIST.PRODUCT DEMONSTRATOR Work Phone: [facility] 10-14-2024 14:34-0400 Diastolic blood pressure 65 mm[Hg] Xiomara Ly BOARD CERTIFIED MUSIC THERAPIST.PRODUCT DEMONSTRATOR Work Phone: [facility] 10-14-2024 14:34-0400 Heart rate 84 /min Xiomara Ly BOARD CERTIFIED MUSIC THERAPIST.PRODUCT DEMONSTRATOR Work Phone: [facility] 10-14-2024 14:34-0400 SaO2% (BldA) [Mass fraction] 95 % Xiomara Ly BOARD CERTIFIED MUSIC THERAPIST.PRODUCT DEMONSTRATOR Work Phone: [facility] 10-14-2024 14:34-0400 Systolic blood pressure 110 mm[Hg] Xiomara Calderonman BOARD CERTIFIED MUSIC THERAPIST.PRODUCT DEMONSTRATOR Work Phone: [facility] 10-14-2024 12:51-0400 Body temperature 96.8 [degF] Triston Riggs MD Work Phone: [facility] 10-14-2024 12:51-0400 Diastolic blood pressure 87 mm[Hg] Triston Riggs MD Work Phone: [facility] 10-14-2024 12:51-0400 Heart rate 88 /min Triston Riggs MD Work Phone: [facility] 10-14-2024 12:51-0400 Respiratory rate 16 /min Triston Riggs MD Work Phone: [facility] 10-14-2024 12:51-0400 SaO2% (BldA) [Mass fraction] 98 % Triston Riggs MD Work Phone: [facility] 10-14-2024 12:51-0400 Systolic blood pressure 141 mm[Hg] Triston Riggs MD Work Phone: [facility] 09-25-2024 12:20-0400 Heart rate 67 /min Shay Dennis MD Work Phone: [facility] 09-25-2024 12:20-0400 Respiratory rate 16 /min Shay Dennis MD Work Phone: [facility] 09-25-2024 12:20-0400 SaO2% (BldA) [Mass fraction] 99 % Shay Dennis MD Work Phone: [facility] 09-25-2024 12:10-0400 Diastolic blood pressure 72 mm[Hg] Shay Dennis MD Work Phone: [facility] 09-25-2024 12:10-0400 Systolic blood pressure 105 mm[Hg] Shay Dennis MD Work Phone: [facility] 09-25-2024 11:47-0400 Body temperature 96.8 [degF] Shay Dennis MD Work Phone: [facility] 09-25-2024 10:49-0400 Body height 182.9 cm Shay Dennis MD Work Phone: [facility] 09-25-2024 10:49-0400 Body mass index (BMI) [Ratio] 26.45 kg/m2 Shay Dennis MD Work Phone: [facility] 09-25-2024 10:49-0400 Body weight 88.45 kg Shay Dennis MD Work Phone: [facility] 09-11-2024 12:11-0400 Body height 182.88 cm [facility] 09-11-2024 12:11-0400 Body mass index (BMI) [Ratio] 27.3 kg/m2 [facility] 09-11-2024 12:11-0400 Body weight 91.28 kg [facility] 09-11-2024 12:11-0400 Diastolic blood pressure 72 mm[Hg] [facility] 09-11-2024 12:11-0400 Heart rate 88 /min [facility] 09-11-2024 12:11-0400 Respiratory rate 12 /min [facility] 09-11-2024 12:11-0400 Systolic blood pressure 111 mm[Hg] [facility] 09-04-2024 13:30-0400 Body height 182.9 cm Jose Antonio Hopper MD Work Phone: [facility] 09-04-2024 13:30-0400 Body mass index (BMI) [Ratio] 25.36 kg/m2 Jose Antonio Hopper MD Work Phone: [facility] 09-04-2024 13:30-0400 Body temperature 98.6 [degF] Jose Antonio Hopper MD Work Phone: [facility] 09-04-2024 13:30-0400 Body weight 84.82 kg Jose Antonio Hopper MD Work Phone: [facility] 09-04-2024 13:30-0400 Diastolic blood pressure 78 mm[Hg] Jose Antonio Hopper MD Work Phone: [facility] 09-04-2024 13:30-0400 Heart rate 77 /min Jose Antonio Hopper MD Work Phone: [facility] 09-04-2024 13:30-0400 Respiratory rate 15 /min Jose Antonio Hopper MD Work Phone: [facility] 09-04-2024 13:30-0400 SaO2% (BldA) [Mass fraction] 96 % Jose Antonio Hopper MD Work Phone: [facility] 09-04-2024 13:30-0400 Systolic blood pressure 112 mm[Hg] Jose Antonio Hopper MD Work Phone: [facility] 08-24-2024 10:43-0400 Body height 182.9 cm Sue Murillo MD Work Phone: [facility] 08-24-2024 10:43-0400 Body mass index (BMI) [Ratio] 25.44 kg/m2 Sue Murillo MD Work Phone: [facility] 08-24-2024 10:43-0400 Body temperature 97.9 [degF] Sue Murillo MD Work Phone: [facility] 08-24-2024 10:43-0400 Body weight 85.09 kg Sue Murillo MD Work Phone: [facility] 08-24-2024 10:43-0400 Diastolic blood pressure 78 mm[Hg] Sue Murillo MD Work Phone: [facility] 08-24-2024 10:43-0400 Heart rate 78 /min Sue Murillo MD Work Phone: [facility] 08-24-2024 10:43-0400 SaO2% (BldA) [Mass fraction] 96 % Sue Murillo MD Work Phone: [facility] 08-24-2024 10:43-0400 Systolic blood pressure 122 mm[Hg] Sue Murillo MD Work Phone: [facility] 08-18-2024 14:09-0500 Body height 182.9 cm Della Barragan APRN.PRODUCT DEMONSTRATOR Work Phone: [facility] 08-18-2024 14:09-0500 Body mass index (BMI) [Ratio] 26.42 kg/m2 Della Barragan APRN.PRODUCT DEMONSTRATOR Work Phone: [facility] 08-18-2024 14:09-0500 Body temperature 98.2 [degF] Della Barragan APRN.PRODUCT DEMONSTRATOR Work Phone: [facility] 08-18-2024 14:09-0500 Body weight 88.36 kg Della Barragan APRN.PRODUCT DEMONSTRATOR Work Phone: [facility] 08-18-2024 14:09-0500 Diastolic blood pressure 67 mm[Hg] Della Barragan BOARD CERTIFIED MUSIC THERAPIST.PRODUCT DEMONSTRATOR Work Phone: [facility] 08-18-2024 14:09-0500 Heart rate 82 /min Della Barragan BOARD CERTIFIED MUSIC THERAPIST.PRODUCT DEMONSTRATOR Work Phone: [facility] 08-18-2024 14:09-0500 Respiratory rate 14 /min Della Barragan BOARD CERTIFIED MUSIC THERAPIST.PRODUCT DEMONSTRATOR Work Phone: [facility] 08-18-2024 14:09-0500 SaO2% (BldA) [Mass fraction] 98 % Dlela Barragan BOARD CERTIFIED MUSIC THERAPIST.PRODUCT DEMONSTRATOR Work Phone: [facility] 08-18-2024 14:09-0500 Systolic blood pressure 111 mm[Hg] Della Barragan BOARD CERTIFIED MUSIC THERAPIST.PRODUCT DEMONSTRATOR Work Phone: [facility] 07-21-2024 13:27-0500 Body height 182.9 cm Jose Antonio Hopper MD Work Phone: [facility] 07-21-2024 13:27-0500 Body mass index (BMI) [Ratio] 26.31 kg/m2 Jose Antonio Hopper MD Work Phone: [facility] 07-21-2024 13:27-0500 Body temperature 98.6 [degF] Jose Antonio Hopper MD Work Phone: [facility] 07-21-2024 13:27-0500 Body weight 88 kg Jose Antonio Hopper MD Work Phone: [facility] 07-21-2024 13:27-0500 Diastolic blood pressure 80 mm[Hg] Jose Antonio Hopper MD Work Phone: [facility] 07-21-2024 13:27-0500 Heart rate 75 /min Jose Antonio Hopepr MD Work Phone: [facility] 07-21-2024 13:27-0500 Respiratory rate 16 /min Jose Antonio Hopper MD Work Phone: [facility] 07-21-2024 13:27-0500 SaO2% (BldA) [Mass fraction] 98 % Jose Antonio Hopper MD Work Phone: [facility] 07-21-2024 13:27-0500 Systolic blood pressure 118 mm[Hg] Jose Antonio Hopper MD Work Phone: [facility] 07-20-2024 12:49-0500 Body temperature 97.2 [degF] Triston Riggs MD Work Phone: [facility] 07-20-2024 12:49-0500 Diastolic blood pressure 86 mm[Hg] Triston Riggs MD Work Phone: [facility] 07-20-2024 12:49-0500 Heart rate 89 /min Triston Riggs MD Work Phone: [facility] 07-20-2024 12:49-0500 Respiratory rate 16 /min Triston Riggs MD Work Phone: [facility] 07-20-2024 12:49-0500 SaO2% (BldA) [Mass fraction] 97 % Triston Riggs MD Work Phone: [facility] 07-20-2024 12:49-0500 Systolic blood pressure 132 mm[Hg] Triston Riggs MD Work Phone: [facility] 07-14-2024 16:31-0500 Body height 182.88 cm [facility] 07-14-2024 16:31-0500 Body mass index (BMI) [Ratio] 25.6 kg/m2 [facility] 07-14-2024 16:31-0500 Body temperature 97.1 [degF] [facility] 07-14-2024 16:31-0500 Body weight 85.78 kg [facility] 07-14-2024 16:31-0500 Diastolic blood pressure 84 mm[Hg] [facility] 07-14-2024 16:31-0500 Heart rate 87 /min [facility] 07-14-2024 16:31-0500 Respiratory rate 12 /min [facility] 07-14-2024 16:31-0500 Systolic blood pressure 121 mm[Hg] [facility] 06-22-2024 09:15-0500 Body temperature 97 [degF] Triston Riggs MD Work Phone: [facility] 06-22-2024 09:15-0500 Diastolic blood pressure 91 mm[Hg] Triston Riggs MD Work Phone: [facility] 06-22-2024 09:15-0500 Heart rate 91 /min Triston Riggs MD Work Phone: [facility] 06-22-2024 09:15-0500 Respiratory rate 16 /min Triston Riggs MD Work Phone: [facility] 06-22-2024 09:15-0500 SaO2% (BldA) [Mass fraction] 98 % Triston Riggs MD Work Phone: [facility] 06-22-2024 09:15-0500 Systolic blood pressure 144 mm[Hg] Triston Riggs MD Work Phone: [facility] 06-12-2024 14:15-0500 Body height 182.9 cm Jose Antonio Hopper MD Work Phone: [facility] 06-12-2024 14:15-0500 Body mass index (BMI) [Ratio] 25.63 kg/m2 Jose Antonio Hopper MD Work Phone: [facility] 06-12-2024 14:15-0500 Body temperature 98.6 [degF] Jose Antonio Hopper MD Work Phone: [facility] 06-12-2024 14:15-0500 Body weight 85.73 kg Jose Antonio Hopper MD Work Phone: [facility] 06-12-2024 14:15-0500 Diastolic blood pressure 74 mm[Hg] Jose Antonio Hopper MD Work Phone: [facility] 06-12-2024 14:15-0500 Heart rate 83 /min Jose Antonio Hopper MD Work Phone: [facility] 06-12-2024 14:15-0500 Respiratory rate 16 /min Jose Antonio Hopper MD Work Phone: [facility] 06-12-2024 14:15-0500 SaO2% (BldA) [Mass fraction] 98 % Jose Antonio Hopper MD Work Phone: [facility] 06-12-2024 14:15-0500 Systolic blood pressure 118 mm[Hg] Jose Antonio Hopper MD Work Phone: [facility] 06-01-2024 12:22-0500 Body height 182.9 cm Steffen Villa MD Work Phone: [facility] 06-01-2024 12:22-0500 Body mass index (BMI) [Ratio] 25.3 kg/m2 Steffen Villa MD Work Phone: [facility] 06-01-2024 12:22-0500 Body temperature 97.9 [degF] Steffen Villa MD Work Phone: [facility] 06-01-2024 12:22-0500 Body weight 84.6 kg Steffen Villa MD Work Phone: [facility] 06-01-2024 12:22-0500 Diastolic blood pressure 74 mm[Hg] Steffen Villa MD Work Phone: [facility] 06-01-2024 12:22-0500 Heart rate 78 /min Steffen Villa MD Work Phone: [facility] 06-01-2024 12:22-0500 Systolic blood pressure 136 mm[Hg] Steffen Villa MD Work Phone: [facility] 05-26-2024 16:01-0500 Body height 182.9 cm Sue Murillo MD Work Phone: [facility] 05-26-2024 16:01-0500 Body mass index (BMI) [Ratio] 25.23 kg/m2 Sue Murillo MD Work Phone: [facility] 05-26-2024 16:01-0500 Body temperature 97.2 [degF] Sue Murillo MD Work Phone: [facility] 05-26-2024 16:01-0500 Body weight 84.37 kg Sue Murillo MD Work Phone: [facility] 05-26-2024 16:01-0500 Diastolic blood pressure 83 mm[Hg] Sue Murillo MD Work Phone: [facility] 05-26-2024 16:01-0500 Heart rate 81 /min Sue Murillo MD Work Phone: [facility] 05-26-2024 16:01-0500 SaO2% (BldA) [Mass fraction] 98 % Sue Murillo MD Work Phone: [facility] 05-26-2024 16:01-0500 Systolic blood pressure 137 mm[Hg] Sue Murillo MD Work Phone: [facility] 05-18-2024 10:30-0500 Body mass index (BMI) [Ratio] 28.4 kg/m2 Louise Cesra MD Work Phone: [facility] 05-18-2024 10:30-0500 Body temperature 97.81 [degF] Louise Cesar MD Work Phone: [facility] 05-18-2024 10:30-0500 Body weight 95 kg Louise Cesar MD Work Phone: [facility] 05-18-2024 10:30-0500 Diastolic blood pressure 82 mm[Hg] Louise Cesar MD Work Phone: [facility] 05-18-2024 10:30-0500 Heart rate 76 /min Louise Cesar MD Work Phone: [facility] 05-18-2024 10:30-0500 SaO2% (BldA) [Mass fraction] 96 % Louise Cesar MD Work Phone: [facility] 05-18-2024 10:30-0500 Systolic blood pressure 136 mm[Hg] Louise Cesar MD Work Phone: [facility] 05-13-2024 10:27-0500 Body height 182.9 cm Jose Antonio Hopper MD Work Phone: [facility] 05-13-2024 10:27-0500 Body mass index (BMI) [Ratio] 28.35 kg/m2 Jose Antonio Hopper MD Work Phone: [facility] 05-13-2024 10:27-0500 Body temperature 98.6 [degF] Jose Antonio Hopper MD Work Phone: [facility] 05-13-2024 10:27-0500 Body weight 94.8 kg Jose Antonio Hopper MD Work Phone: [facility] 05-13-2024 10:27-0500 Diastolic blood pressure 78 mm[Hg] Jose Antonio Hopper MD Work Phone: [facility] 05-13-2024 10:27-0500 Heart rate 75 /min Jose Antonio Hopper MD Work Phone: [facility] 05-13-2024 10:27-0500 Respiratory rate 16 /min Jose Antonio Hopper MD Work Phone: [facility] 05-13-2024 10:27-0500 SaO2% (BldA) [Mass fraction] 98 % Jose Antonio Hopper MD Work Phone: [facility] 05-13-2024 10:27-0500 Systolic blood pressure 122 mm[Hg] Jose Antonio Hopper MD Work Phone: [facility] 04-28-2024 12:30-0500 Diastolic blood pressure 82 mm[Hg] Vic Ponce MD Work Phone: [facility] 04-28-2024 12:30-0500 Heart rate 85 /min Vic Ponce MD Work Phone: [facility] 04-28-2024 12:30-0500 Respiratory rate 21 /min Vic Ponce MD Work Phone: [facility] 04-28-2024 12:30-0500 SaO2% (BldA) [Mass fraction] 98 % Vic Ponce MD Work Phone: [facility] 04-28-2024 12:30-0500 Systolic blood pressure 117 mm[Hg] Vic Ponce MD Work Phone: [facility] 04-28-2024 12:02-0500 Body temperature 99.1 [degF] Vic Ponce MD Work Phone: [facility] 04-20-2024 11:48-0500 Body height 180.3 cm Sue Murillo MD Work Phone: [facility] 04-20-2024 11:48-0500 Body mass index (BMI) [Ratio] 29.18 kg/m2 Sue Murillo MD Work Phone: [facility] 04-20-2024 11:48-0500 Body weight 94.89 kg Sue Murillo MD Work Phone: [facility] 04-20-2024 11:48-0500 Diastolic blood pressure 80 mm[Hg] Sue Murillo MD Work Phone: [facility] 04-20-2024 11:48-0500 Heart rate 89 /min Sue Mruillo MD Work Phone: [facility] 04-20-2024 11:48-0500 SaO2% (BldA) [Mass fraction] 97 % Sue Murillo MD Work Phone: [facility] 04-20-2024 11:48-0500 Systolic blood pressure 134 mm[Hg] Sue Murillo MD Work Phone: [facility] 03-30-2024 09:26-0400 Body height 180.3 cm Steffen Villa MD Work Phone: [facility] 03-30-2024 09:26-0400 Body mass index (BMI) [Ratio] 28.9 kg/m2 Steffen Villa MD Work Phone: [facility] 03-30-2024 09:26-0400 Body temperature 97.7 [degF] Steffen Villa MD Work Phone: [facility] 03-30-2024 09:26-0400 Body weight 94 kg Steffen Villa MD Work Phone: [facility] 03-30-2024 09:26-0400 Diastolic blood pressure 72 mm[Hg] Steffen Villa MD Work Phone: [facility] 03-30-2024 09:26-0400 Heart rate 92 /min Steffen Villa MD Work Phone: [facility] 03-30-2024 09:26-0400 Systolic blood pressure 141 mm[Hg] Steffen Villa MD Work Phone: [facility] 03-17-2024 13:48-0400 Body height 177.8 cm Ruma Oshea PA-C Work Phone: [facility] 03-17-2024 13:48-0400 Body mass index (BMI) [Ratio] 29.83 kg/m2 Ruma BOO-C Work Phone: [facility] 03-17-2024 13:48-0400 Body temperature 97.3 [degF] Ruma BOO-C Work Phone: [facility] 03-17-2024 13:48-0400 Body weight 94.3 kg Ruma Shultzvarella PA-C Work Phone: [facility] 03-17-2024 13:48-0400 Diastolic blood pressure 78 mm[Hg] Ruma Zavarella PA-C Work Phone: [facility] 03-17-2024 13:48-0400 Heart rate 88 /min Ruma Zavarella PA-C Work Phone: [facility] 03-17-2024 13:48-0400 Respiratory rate 16 /min Ruma Zavarella PA-C Work Phone: [facility] 03-17-2024 13:48-0400 SaO2% (BldA) [Mass fraction] 98 % Ruma Lexiivarella PA-C Work Phone: [facility] 03-17-2024 13:48-0400 Systolic blood pressure 132 mm[Hg] Ruma Lexiivarella PA-C Work Phone: [facility] 03-17-2024 10:24-0400 Body mass index (BMI) [Ratio] 27.8 kg/m2 Louise Cesar MD Work Phone: [facility] 03-17-2024 10:24-0400 Body weight 92.99 kg Louise Cesar MD Work Phone: [facility] 03-17-2024 10:24-0400 Diastolic blood pressure 84 mm[Hg] Louise Cesar MD Work Phone: [facility] 03-17-2024 10:24-0400 Heart rate 82 /min Louise Cesar MD Work Phone: [facility] 03-17-2024 10:24-0400 SaO2% (BldA) [Mass fraction] 98 % Louise Cesar MD Work Phone: [facility] 03-17-2024 10:24-0400 Systolic blood pressure 126 mm[Hg] Louise Cesar MD Work Phone: [facility] 02-12-2024 13:08-0400 Body height 182.9 cm Yehuda Dial MD Work Phone: [facility] 02-12-2024 13:08-0400 Body mass index (BMI) [Ratio] 27.67 kg/m2 Yehuda Dial MD Work Phone: [facility] 02-12-2024 13:08-0400 Body weight 92.53 kg Yehuda Dial MD Work Phone: [facility] 02-12-2024 13:08-0400 Diastolic blood pressure 72 mm[Hg] Yehuda Dial MD Work Phone: [facility] 02-12-2024 13:08-0400 Systolic blood pressure 124 mm[Hg] Yehuda Dial MD Work Phone: [facility] 02-12-2024 10:38-0400 Body height 182.9 cm Jose Antonio Hopper MD Work Phone: [facility] 02-12-2024 10:38-0400 Body mass index (BMI) [Ratio] 27.67 kg/m2 Jose Antonio Hopper MD Work Phone: [facility] 02-12-2024 10:38-0400 Body temperature 98.6 [degF] Jose Antonio Hopper MD Work Phone: [facility] 02-12-2024 10:38-0400 Body weight 92.53 kg Jose Antonio Hopper MD Work Phone: [facility] 02-12-2024 10:38-0400 Diastolic blood pressure 78 mm[Hg] Jose Antonio Hopper MD Work Phone: [facility] 02-12-2024 10:38-0400 Heart rate 86 /min Jose Antonio Hopper MD Work Phone: [facility] 02-12-2024 10:38-0400 Respiratory rate 18 /min Jose Antonio Hopper MD Work Phone: [facility] 02-12-2024 10:38-0400 SaO2% (BldA) [Mass fraction] 98 % Jose Antonio Hopper MD Work Phone: [facility] 02-12-2024 10:38-0400 Systolic blood pressure 108 mm[Hg] Jose Antonio Hopper MD Work Phone: [facility] 02-04-2024 13:32-0400 Body height 182.9 cm [facility] BOARD CERTIFIED MUSIC THERAPIST.PRODUCT DEMONSTRATOR Work Phone: [facility] 02-04-2024 13:32-0400 Body mass index (BMI) [Ratio] 27.12 kg/m2 [facility] BOARD CERTIFIED MUSIC THERAPIST.PRODUCT DEMONSTRATOR Work Phone: [facility] 02-04-2024 13:32-0400 Body temperature 97.11 [degF] [facility] BOARD CERTIFIED MUSIC THERAPIST.PRODUCT DEMONSTRATOR Work Phone: [facility] 02-04-2024 13:32-0400 Body weight 90.7 kg [facility] BOARD CERTIFIED MUSIC THERAPIST.PRODUCT DEMONSTRATOR Work Phone: [facility] 02-04-2024 13:32-0400 Diastolic blood pressure 69 mm[Hg] [facility] BOARD CERTIFIED MUSIC THERAPIST.PRODUCT DEMONSTRATOR Work Phone: [facility] 02-04-2024 13:32-0400 Heart rate 75 /min [facility] BOARD CERTIFIED MUSIC THERAPIST.PRODUCT DEMONSTRATOR Work Phone: [facility] 02-04-2024 13:32-0400 Respiratory rate 16 /min [facility] BOARD CERTIFIED MUSIC THERAPIST.PRODUCT DEMONSTRATOR Work Phone: [facility] 02-04-2024 13:32-0400 SaO2% (BldA) [Mass fraction] 95 % [facility] BOARD CERTIFIED MUSIC THERAPIST.PRODUCT DEMONSTRATOR Work Phone: [facility] 02-04-2024 13:32-0400 Systolic blood pressure 120 mm[Hg] Tita Bloomhire BOARD CERTIFIED MUSIC THERAPISTFlorencePRODUCT DEMONSTRATOR Work Phone: [facility] 01-15-2024 11:36-0400 Body height 182.9 cm Jose Antonio Hopper MD Work Phone: [facility] 01-15-2024 11:36-0400 Body mass index (BMI) [Ratio] 29.02 kg/m2 Jose Antonio Hopper MD Work Phone: [facility] 01-15-2024 11:36-0400 Body temperature 98.6 [degF] Jose Antonio Hopper MD Work Phone: [facility] 01-15-2024 11:36-0400 Body weight 97.07 kg Jose Antonio Hopper MD Work Phone: [facility] 01-15-2024 11:36-0400 Diastolic blood pressure 82 mm[Hg] Jose Antonio Hopper MD Work Phone: [facility] 01-15-2024 11:36-0400 Heart rate 80 /min Jose Antonio Hopper MD Work Phone: [facility] 01-15-2024 11:36-0400 Respiratory rate 16 /min Jose Antonio Hopper MD Work Phone: [facility] 01-15-2024 11:36-0400 SaO2% (BldA) [Mass fraction] 96 % Jose Antonio Hopper MD Work Phone: [facility] 01-15-2024 11:36-0400 Systolic blood pressure 128 mm[Hg] Jose Antonio Hopper MD Work Phone: [facility] 01-06-2024 15:28-0400 Body height 182.9 cm Yehuda Dial MD Work Phone: [facility] 01-06-2024 15:28-0400 Body mass index (BMI) [Ratio] 29.02 kg/m2 Yehuda Dial MD Work Phone: [facility] 01-06-2024 15:28-0400 Body weight 97.07 kg Yehuda Dial MD Work Phone: [facility] 01-06-2024 15:28-0400 Diastolic blood pressure 76 mm[Hg] Yehuda Dial MD Work Phone: [facility] 01-06-2024 15:28-0400 Systolic blood pressure 134 mm[Hg] Yehuda Dial MD Work Phone: [facility] 01-06-2024 13:36-0400 Body height 182.9 cm Ruma Zavarella PA-C Work Phone: [facility] 01-06-2024 13:36-0400 Body mass index (BMI) [Ratio] 29.08 kg/m2 Ruma Zavarella PA-C Work Phone: [facility] 01-06-2024 13:36-0400 Body temperature 97.2 [degF] Ruma Zavarella PA-C Work Phone: [facility] 01-06-2024 13:36-0400 Body weight 97.25 kg Ruma Zavarella PA-C Work Phone: [facility] 01-06-2024 13:36-0400 Diastolic blood pressure 73 mm[Hg] Ruma Zavarella PA-C Work Phone: [facility] 01-06-2024 13:36-0400 Heart rate 80 /min Ruma Zavarella PA-C Work Phone: [facility] 01-06-2024 13:36-0400 Respiratory rate 16 /min Ruma Zavarella PA-C Work Phone: [facility] 01-06-2024 13:36-0400 SaO2% (BldA) [Mass fraction] 96 % Ruma Zavarella PA-C Work Phone: [facility] 01-06-2024 13:36-0400 Systolic blood pressure 137 mm[Hg] Ruma Oshea PA-C Work Phone: [facility] 12-20-2023 13:33-0400 Body height 182.9 cm [facility] BOARD CERTIFIED MUSIC THERAPIST.PRODUCT DEMONSTRATOR Work Phone: [facility] 12-20-2023 13:33-0400 Body mass index (BMI) [Ratio] 31.33 kg/m2 [facility] BOARD CERTIFIED MUSIC THERAPIST.PRODUCT DEMONSTRATOR Work Phone: [facility] 12-20-2023 13:33-0400 Body temperature 97.3 [degF] [facility] BOARD CERTIFIED MUSIC THERAPIST.PRODUCT DEMONSTRATOR Work Phone: [facility] 12-20-2023 13:33-0400 Body weight 104.78 kg [facility] BOARD CERTIFIED MUSIC THERAPIST.PRODUCT DEMONSTRATOR Work Phone: [facility] 12-20-2023 13:33-0400 Respiratory rate 18 /min [facility] BOARD CERTIFIED MUSIC THERAPIST.PRODUCT DEMONSTRATOR Work Phone: [facility] 12-20-2023 13:33-0400 SaO2% (BldA) [Mass fraction] 100 % [facility] BOARD CERTIFIED MUSIC THERAPIST.PRODUCT DEMONSTRATOR Work Phone: [facility] 12-13-2023 13:40-0400 Body height 182.9 cm [facility] BOARD CERTIFIED MUSIC THERAPIST.PRODUCT DEMONSTRATOR Work Phone: [facility] 12-13-2023 13:40-0400 Body mass index (BMI) [Ratio] 31.1 kg/m2 [facility] BOARD CERTIFIED MUSIC THERAPIST.PRODUCT DEMONSTRATOR Work Phone: [facility] 12-13-2023 13:40-0400 Body temperature 97.3 [degF] [facility] BOARD CERTIFIED MUSIC THERAPIST.PRODUCT DEMONSTRATOR Work Phone: [facility] 12-13-2023 13:40-0400 Body weight 104.01 kg [facility] BOARD CERTIFIED MUSIC THERAPIST.PRODUCT DEMONSTRATOR Work Phone: [facility] 12-13-2023 13:40-0400 Diastolic blood pressure 80 mm[Hg] [facility] BOARD CERTIFIED MUSIC THERAPIST.PRODUCT DEMONSTRATOR Work Phone: [facility] 12-13-2023 13:40-0400 Heart rate 68 /min [facility] BOARD CERTIFIED MUSIC THERAPIST.PRODUCT DEMONSTRATOR Work Phone: [facility] 12-13-2023 13:40-0400 Respiratory rate 16 /min [facility] BOARD CERTIFIED MUSIC THERAPIST.PRODUCT DEMONSTRATOR Work Phone: [facility] 12-13-2023 13:40-0400 SaO2% (BldA) [Mass fraction] 99 % [facility] BOARD CERTIFIED MUSIC THERAPIST.PRODUCT DEMONSTRATOR Work Phone: [facility] 12-13-2023 13:40-0400 Systolic blood pressure 129 mm[Hg] [facility] BOARD CERTIFIED MUSIC THERAPIST.PRODUCT DEMONSTRATOR Work Phone: [facility] 12-03-2023 13:21-0400 Body height 182.9 cm [facility] BOARD CERTIFIED MUSIC THERAPIST.PRODUCT DEMONSTRATOR Work Phone: [facility] 12-03-2023 13:21-0400 Body mass index (BMI) [Ratio] 30.61 kg/m2 [facility] BOARD CERTIFIED MUSIC THERAPIST.PRODUCT DEMONSTRATOR Work Phone: [facility] 12-03-2023 13:21-0400 Body temperature 97.81 [degF] [facility] BOARD CERTIFIED MUSIC THERAPIST.PRODUCT DEMONSTRATOR Work Phone: [facility] 12-03-2023 13:21-0400 Body weight 102.38 kg [facility] BOARD CERTIFIED MUSIC THERAPIST.PRODUCT DEMONSTRATOR Work Phone: [facility] 12-03-2023 13:21-0400 Diastolic blood pressure 78 mm[Hg] [facility] BOARD CERTIFIED MUSIC THERAPIST.PRODUCT DEMONSTRATOR Work Phone: [facility] 12-03-2023 13:21-0400 Heart rate 74 /min [facility] BOARD CERTIFIED MUSIC THERAPIST.PRODUCT DEMONSTRATOR Work Phone: [facility] 12-03-2023 13:21-0400 Respiratory rate 14 /min [facility] BOARD CERTIFIED MUSIC THERAPIST.PRODUCT DEMONSTRATOR Work Phone: [facility] 12-03-2023 13:21-0400 SaO2% (BldA) [Mass fraction] 98 % [facility] BOARD CERTIFIED MUSIC THERAPIST.PRODUCT DEMONSTRATOR Work Phone: [facility] 12-03-2023 13:21-0400 Systolic blood pressure 120 mm[Hg] [facility] BOARD CERTIFIED MUSIC THERAPIST.PRODUCT DEMONSTRATOR Work Phone: [facility] 11-29-2023 14:28-0400 Body height 182.9 cm [facility] BOARD CERTIFIED MUSIC THERAPIST.PRODUCT DEMONSTRATOR Work Phone: [facility] 11-29-2023 14:28-0400 Body mass index (BMI) [Ratio] 31.57 kg/m2 [facility] BOARD CERTIFIED MUSIC THERAPIST.PRODUCT DEMONSTRATOR Work Phone: [facility] 11-29-2023 14:28-0400 Body temperature 97.3 [degF] [facility] BOARD CERTIFIED MUSIC THERAPIST.PRODUCT DEMONSTRATOR Work Phone: [facility] 11-29-2023 14:28-0400 Body weight 105.6 kg [facility] BOARD CERTIFIED MUSIC THERAPIST.PRODUCT DEMONSTRATOR Work Phone: [facility] 11-29-2023 14:28-0400 Diastolic blood pressure 68 mm[Hg] [facility] BOARD CERTIFIED MUSIC THERAPIST.PRODUCT DEMONSTRATOR Work Phone: [facility] 11-29-2023 14:28-0400 Heart rate 71 /min [facility] BOARD CERTIFIED MUSIC THERAPIST.PRODUCT DEMONSTRATOR Work Phone: [facility] 11-29-2023 14:28-0400 Respiratory rate 14 /min [facility] BOARD CERTIFIED MUSIC THERAPIST.PRODUCT DEMONSTRATOR Work Phone: [facility] 11-29-2023 14:28-0400 SaO2% (BldA) [Mass fraction] 98 % [facility] BOARD CERTIFIED MUSIC THERAPIST.PRODUCT DEMONSTRATOR Work Phone: [facility] 11-29-2023 14:28-0400 Systolic blood pressure 121 mm[Hg] Tita [facility] BOARD CERTIFIED MUSIC THERAPIST.PRODUCT DEMONSTRATOR Work Phone: [facility] 11-12-2023 15:33-0400 Body temperature 97 [degF] Roseann Rosario MD Work Phone: [facility] 11-12-2023 15:33-0400 Diastolic blood pressure 74 mm[Hg] Roseann Rosario MD Work Phone: [facility] 11-12-2023 15:33-0400 Heart rate 92 /min Roseann Rosario MD Work Phone: [facility] 11-12-2023 15:33-0400 Respiratory rate 24 /min Roseann Rosario MD Work Phone: [facility] 11-12-2023 15:33-0400 SaO2% (BldA) [Mass fraction] 97 % Roseann Rosario MD Work Phone: [facility] 11-12-2023 15:33-0400 Systolic blood pressure 143 mm[Hg] Roseann Rosario MD Work Phone: [facility] 11-12-2023 15:03-0400 Body height 182.9 cm Roseann Rosario MD Work Phone: [facility] 11-12-2023 15:03-0400 Body mass index (BMI) [Ratio] 29.84 kg/m2 Roseann Rosario MD Work Phone: [facility] 11-12-2023 15:03-0400 Body weight 99.79 kg Roseann Rosario MD Work Phone: [facility] 11-12-2023 13:22-0400 Body height 182.9 cm Ronaldo Flood MD, PhD Work Phone: [facility] 11-12-2023 13:22-0400 Body mass index (BMI) [Ratio] 29.84 kg/m2 Ronaldo Flood MD, PhD Work Phone: [facility] 11-12-2023 13:22-0400 Body temperature 97.3 [degF] Ronaldo Flood MD, PhD Work Phone: [facility] 11-12-2023 13:22-0400 Body weight 99.79 kg Ronaldo Flood MD, PhD Work Phone: [facility] 11-12-2023 13:22-0400 Diastolic blood pressure 88 mm[Hg] Ronaldo Flood MD, PhD Work Phone: [facility] 11-12-2023 13:22-0400 Heart rate 91 /min Ronaldo Flood MD, PhD Work Phone: [facility] 11-12-2023 13:22-0400 Respiratory rate 14 /min Ronaldo Flood MD, PhD Work Phone: [facility] 11-12-2023 13:22-0400 SaO2% (BldA) [Mass fraction] 94 % Ronaldo Flood MD, PhD Work Phone: [facility] 11-12-2023 13:22-0400 Systolic blood pressure 144 mm[Hg] Ronaldo Flood MD, PhD Work Phone: [facility] 10-24-2023 12:01-0400 Body height 182.9 cm Ronaldo Flood MD, PhD Work Phone: [facility] 10-24-2023 12:01-0400 Body mass index (BMI) [Ratio] 30.24 kg/m2 Ronaldo Flood MD, PhD Work Phone: [facility] 10-24-2023 12:01-0400 Body temperature 97.39 [degF] Ronaldo Flood MD, PhD Work Phone: [facility] 10-24-2023 12:01-0400 Body weight 101.15 kg Ronaldo Flood MD, PhD Work Phone: [facility] 10-24-2023 12:01-0400 Diastolic blood pressure 95 mm[Hg] Ronaldo Flood MD, PhD Work Phone: [facility] 10-24-2023 12:01-0400 Heart rate 82 /min Ronaldo Flood MD, PhD Work Phone: [facility] 10-24-2023 12:01-0400 Respiratory rate 14 /min Ronaldo Flood MD, PhD Work Phone: [facility] 10-24-2023 12:01-0400 SaO2% (BldA) [Mass fraction] 98 % Ronaldo Flood MD, PhD Work Phone: [facility] 10-24-2023 12:01-0400 Systolic blood pressure 162 mm[Hg] Ronaldo Flood MD, PhD Work Phone: [facility] 08-13-2023 13:47-0500 Body height 182.88 cm DO Calin Samsa Work Phone: [facility] 08-13-2023 13:47-0500 Body mass index (BMI) [Ratio] 32 kg/m2 DO Calin Samsa Work Phone: [facility] 08-13-2023 13:47-0500 Body weight 107.04 kg DO Calin Samsa Work Phone: [facility] 08-13-2023 13:47-0500 Diastolic blood pressure 81 mm[Hg] DO Calin Samsa Work Phone: [facility] 08-13-2023 13:47-0500 Heart rate 88 /min DO Calin Samsa Work Phone: [facility] 08-13-2023 13:47-0500 Respiratory rate 12 /min DO Calin Samsa Work Phone: [facility] 08-13-2023 13:47-0500 Systolic blood pressure 150 mm[Hg] DO Calin Samsa Work Phone: [facility] 07-23-2023 13:30-0500 Body height 182.88 cm Yuli Ball Other [facility] Other 07-23-2023 13:30-0500 Body mass index (BMI) [Ratio] 31.16 kg/m2 Yuli Ball Other [facility] Other 07-23-2023 13:30-0500 Body weight 104.24 kg Yuli Ball Other [facility] Other 07-23-2023 13:30-0500 Diastolic blood pressure 81 mm[Hg] Yuli Ball Other [facility] Other 07-23-2023 13:30-0500 Respiratory rate 12 /min Yuli Ball Other [facility] Other 07-23-2023 13:30-0500 Systolic blood pressure 133 mm[Hg] Yuli Ball Other [facility] Other 04-22-2023 10:00-0500 Body height 182.88 cm Yuli Ball Other [facility] Other 04-22-2023 10:00-0500 Body mass index (BMI) [Ratio] 30.78 kg/m2 Yuli Ball Other [facility] Other 04-22-2023 10:00-0500 Body weight 102.97 kg Yuli Ball Other [facility] Other 04-22-2023 10:00-0500 Diastolic blood pressure 111 mm[Hg] Yuli Ball Other [facility] Other 04-22-2023 10:00-0500 Respiratory rate 12 /min Yuli Ball Other [facility] Other 04-22-2023 10:00-0500 Systolic blood pressure 164 mm[Hg] Yuli Ball Other [facility] Other 02-11-2023 15:16-0400 Body height 182.9 cm Margie Edouard DO Work Phone: [facility] 02-11-2023 15:16-0400 Body mass index (BMI) [Ratio] 29.84 kg/m2 Margie Edouard DO Work Phone: [facility] 02-11-2023 15:16-0400 Body weight 99.79 kg Margie Edouard DO Work Phone: [facility] 01-16-2023 09:46-0400 Body height 182.9 cm Nena Huff DO Work Phone: [facility] 01-16-2023 09:46-0400 Body mass index (BMI) [Ratio] 29.84 kg/m2 Nena Huff DO Work Phone: [facility] 01-16-2023 09:46-0400 Body weight 99.79 kg Nena Huff DO Work Phone: [facility] 01-10-2023 10:00-0400 Body height 182.88 cm Yuli Ball Other [facility] Other 01-10-2023 10:00-0400 Body mass index (BMI) [Ratio] 30.11 kg/m2 Yuli Ball Other [facility] Other 01-10-2023 10:00-0400 Body weight 100.7 kg Yuli Ball Other [facility] Other 01-10-2023 10:00-0400 Diastolic blood pressure 90 mm[Hg] Yuli Ball Other [facility] Other 01-10-2023 10:00-0400 Respiratory rate 12 /min Yuli Ball Other [facility] Other 01-10-2023 10:00-0400 Systolic blood pressure 134 mm[Hg] Yuli Ball Other [email or web address] Other 11-19-2022 13:38-0400 Body height 182.9 cm Margie Steginsky DO Work Phone: [facility] 11-19-2022 13:38-0400 Body mass index (BMI) [Ratio] 30.24 kg/m2 Margie Steginsky DO Work Phone: [facility] 11-19-2022 13:38-0400 Body weight 101.15 kg Margie Steginsky DO Work Phone: [facility] 10-08-2022 13:20-0400 Body height 182.9 cm Grecia Munsona PA-C Work Phone: [facility] 10-08-2022 13:20-0400 Body mass index (BMI) [Ratio] 30.24 kg/m2 Grecia Munsona PA-C Work Phone: [facility] 10-08-2022 13:20-0400 Body weight 101.15 kg Grecia Munsona PA-C Work Phone: [facility] 08-28-2022 13:16-0400 Body height 182.9 cm Margie Steginsky DO Work Phone: [facility] 08-28-2022 13:16-0400 Body mass index (BMI) [Ratio] 30.24 kg/m2 Margie Steginsky DO Work Phone: [facility] 08-28-2022 13:16-0400 Body weight 101.15 kg Margie Steginsky DO Work Phone: [facility] 07-20-2020 14:44-0500 BMI (Body Mass Index) 30.24 kg/m2 Nena [facility] 07-20-2020 14:44-0500 Body weight 101.15 kg Nena [facility] 07-20-2020 14:44-0500 Height 182.9 cm Nena [facility] 07-01-2019 09:59-0500 BMI (Body Mass Index) 30.79 kg/m2 Nena [facility] 07-01-2019 09:59-0500 Body weight 102.97 kg Nena Huff [facility] 07-01-2019 09:59-0500 Height 182.9 cm Nena Huff [facility] 07-30-2017 11:30-0500 BMI (Body Mass Index) 30.79 kg/m2 Karthik Calloway [facility] Work Phone: 07-30-2017 11:30-0500 Height 182.9 cm Karthik Calloway [facility] Work Phone: 07-30-2017 11:30-0500 Weight 102.97 kg Karthik Calloway [facility] Work Phone: 01-29-2017 12:07-0400 BMI (Body Mass Index) 29.97 kg/m2 Karthik Calloway [facility] Work Phone: 01-29-2017 12:07-0400 Height 182.9 cm Karthik Calloway [facility] Work Phone: 01-29-2017 12:07-0400 Weight 100.25 kg Karthik Calloway [facility] Work Phone: Encounters Encounter Date Encounter Type Care Provider Facility Start: 03-29-2025 ambulatory LOUISE CESAR Facili ty:[facility] Start: 03-26-2025 End: 03-26-2025 [facility] Start: 03-25-2025 End: 03-25-2025 Bamboo flowsdagoberto Chowdary DPM Work Phone: [facility] Start: 03-25-2025 End: 03-25-2025 Bamboo flowsheet Jamel Chowdary DPM Work Phone: [facility] Start: 03-25-2025 End: 03-25-2025 ambulatory JAMEL CHOWDARY Not Available Start: 03-25-2025 End: 03-25-2025 Office outpatient visit 15 minutes Jamel Chowdary DPM Work Phone: [facility] Comment on above: Pressure injury of t oe of left foot, stage 2 ([facility]) (Primary Dx); Cellulitis of left foot; Pain in toe of left foot; Difficulty walking Start: 03-24-2025 End: 03-25-2025 ambulatory [facility] Facility:[facility] Start: 03-24-2025 ambulatory Aure Rao ty:[facility] Start: 03-17-2025 End: 03-17-2025 Bamboo flowsheet Jamel Chowdary DPM Work Phone: [facility] Start: 03-17-2025 End: 03-17-2025 Bamboo flowsheet Jamel Chowdary DPM Work Phone: [facility] Start: 03-17-2025 End: 03-17-2025 Office outpatient visit 15 minutes Jamel Chowdary DPM Work Phone: [facility] Comment on above: Pressure injury of t oe of left foot, stage 2 ([facility]) (Primary Dx); Cellulitis of left foot; Pain in toe of left foot; Difficulty walking Start: 03-17-2025 End: 03-17-2025 ambulatory JAMEL CHOWDARY Not Available Start: 03-16-2025 End: 03-17-2025 ambulatory [facility] Facility:[facility] Start: 03-12-2025 End: 03-12-2025 Bamboo flowsheet Jamel Chowdary DPM Work Phone: [facility] Start: 03-12-2025 End: 03-12-2025 Bamboo flowsheet Jamel Chowdary DPM Work Phone: [facility] Start: 03-12-2025 End: 03-12-2025 ambulatory JAMEL CHOWDARY Not Available Start: 03-12-2025 End: 03-12-2025 Office outpatient new 30 minutes Jamel Chowdary DPM Work Phone: [facility] Comment on above: Pressure injury of t oe of left foot, stage 2 (CMS-HCC) (Primary Dx); Cellulitis of left foot; Pain in toe of left foot; Difficulty walking Start: 03-12-2025 End: 03-12-2025 ambulatory JAMEL CHOWDARY Not Available Start: 03-05-2025 End: 03-05-2025 ambulatory JOSE ANTONIO HOPPER Facility:[facility] Start: 02-25-2025 End: 02-25-2025 Patient encounter procedure Zabrina Suarez MD Work Phone: Kidney Medicine [facility] Comment on above: FLOYD (acute kidney in jury) (Primary Dx); Screening for genitourinary condition; Elevated serum creatinine; Decreased GFR; Generalized edema; Pleural effusion, not elsewhere classified Start: 02-25-2025 End: 03-01-2025 ambulatory Zabrina Suarez MD Work Phone: Kidney [facility] Start: 02-19-2025 ambulatory MARLYN HOOPER Facility:[facility] Start: 02-19-2025 End: 02-19-2025 Subsequent hospital visit by physician Main A21 5 Work Phone: Radiology Comment on above: Other ascites [R18.8 ] Start: 02-17-2025 End: 02-17-2025 ambulatory Marlyn Hooper APRN.PRODUCT DEMONSTRATOR Work Phone: Gastroenterology Comment on above: Willie Raymundo. [birth year] Start: 02-11-2025 End: 02-11-2025 ambulatory JOSE ANTONIO HOPPER Facility:[facility] Start: 02-02-2025 End: 02-02-2025 ambulatory ISAIAH MURRY Facility:[facility] Start: 01-26-2025 End: 01-26-2025 Patient encounter procedure Jose Antonio Hopper MD Work Phone: Jose Antonio Hopper MD Comment on above: Metabolic encephalop athy (Primary Dx); Stage 3a chronic kidney disease (HCC); Primary hypertension; Lymphocytic colitis; Generalized edema; Orthostatic hypotension; Cramp and spasm; Urge incontinence Start: 01-25-2025 End: 01-25-2025 ambulatory JOES ANTONIO HOPPER Facility:[facility] Start: 01-19-2025 End: 02-02-2025 Refill Jose Antonio [...] Start: 01-11-2025 End: 01-11-2025 ambulatory TRISTON RIGGS Facility:[facility] Start: 01-08-2025 End: 01-08-2025 Subsequent hospital visit by physician General Keron Ahumada Mc Work Phone: Radiology Comment on above: Pleural effusion, no t elsewhere classified [J90] Start: 01-08-2025 End: 01-08-2025 ambulatory TRISTON RIGGS Facility:[facility] Start: 12-22-2024 End: 12-22-2024 Telemedicine consultation with patient Marlyn Hooper APRNFlorencePRODUCT DEMONSTRATOR Work Phone: Gastroenterology Start: 12-22-2024 End: 12-22-2024 ambulatory Marlyn Hooper PRODUCT DEMONSTRATOR Work Phone: Gastroenterology Comment on above: Elevated serum creat inine (Primary Dx); Elevated alkaline phosphatase level Start: 12-16-2024 End: 12-16-2024 ambulatory ZAC MENDIOLA Facility:[facility] Start: 12-15-2024 End: 12-15-2024 Patient encounter procedure [...] Start: 11-23-2024 End: 11-24-2024 ambulatory UNKNOWN PROVIDER Facility:[facility] Start: 11-20-2024 End: 11-20-2024 Office outpatient new 45 minutes Zac Mendiola MD Work Phone: Cardiology Comment on above: Extremity cyanosis ( Primary Dx) Start: 11-20-2024 End: 11-20-2024 ambulatory ZAC MENDIOLA Facility:[facility] Start: 11-19-2024 End: 11-19-2024 ambulatory TRISTON RIGGS Facility:[facility] Start: 11-19-2024 End: 11-19-2024 Patient encounter procedure Triston Riggs MD Work Phone: Pulmonary Medicine Comment on above: Pleural effusion (Pr imary Dx) Start: 11-19-2024 End: 11-19-2024 ambulatory TRISTON RIGGS Facility:[facility] Start: 11-19-2024 End: 11-19-2024 Subsequent hospital visit by physician Xr Chest Main Qb1 Radiology Comment on above: Pleural effusion [J9 0] Start: 11-17-2024 End: 01-01-2025 Telephone encounter Amanda (Pss) Cecilia Pulmonary Medicine Comment on above: Patient Question Start: 11-17-2024 End: 11-17-2024 ambulatory JOSE ANTONIO HOPPER Facility:[facility] Start: 11-13-2024 End: 11-13-2024 Patient encounter procedure Jose Antonio Hopper MD Work Phone: Jose Antonio Hopper MD Comment on above: Anasarca (Primary Dx ); Recurrent 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; Hepatomegaly; Hiatal hernia; Chronic gastritis without bleeding, unspecified gastritis type; Hypomagnesemia Start: 11-12-2024 End: 11-12-2024 Emergency department patient visit YULI MARISCAL Facility:[facility] Start: 11-05-2024 End: 11-05-2024 ambulatory YULI MARISCAL Facility:[facility] Start: 11-04-2024 ambulatory YULI MARISCAL Facilit :[facility] Start: 11-03-2024 End: 11-13-2024 Follow-up encounter Xiomara Ly APRN.PRODUCT DEMONSTRATOR Work Phone: Gastroenterology Start: 10-31-2024 End: 12-31-2024 Follow-up encounter Xiomara Ly APRN.PRODUCT DEMONSTRATOR Work Phone: Gastroenterology Start: 10-27-2024 End: 10-28-2024 Orders Only Vilma Graff MA Pulmonary Medicine Comment on above: Pleural effusion (Pr imary Dx) Start: 10-23-2024 End: 10-23-2024 Telephone encounter Ronaldo Flood MD, PhD Work Phone: [facility] Comment on above: Received Outside Med ical Records Start: 10-23-2024 End: 10-23-2024 Subsequent hospital visit by physician Patti [facility] Work Phone: [facility] Radiology Ultrasound Comment on above: Elevated alkaline ph osphatase level [R74.8] Start: 10-23-2024 End: 10-23-2024 ambulatory YULI MARISCAL Facility[facility] Start: 10-20-2024 End: 10-21-2024 Follow-up encounter Xiomara Ly APRN.PRODUCT DEMONSTRATOR Work Phone: Gastroenterology Start: 10-19-2024 End: 10-19-2024 Refill Jose Antonio Hopper MD Work Phone: Jose Antonio Hopper MD Comment on above: Refill Request Start: 10-15-2024 End: 12-15-2024 Follow-up encounter Xiomara Ly APRN.PRODUCT DEMONSTRATOR Work Phone: Gastroenterology Start: 10-15-2024 End: 10-15-2024 Patient encounter procedure Zabrina Suarez MD Work Phone: Kidney [facility] Comment on above: FLOYD (acute kidney in jury) (Primary Dx); Elevated BUN; Elevated serum creatinine; Decreased GFR; Lymphocytic colitis; Pleural effusion, not elsewhere classified; Generalized edema Start: 10-15-2024 End: 10-19-2024 ambulatory Zabrina Suarez MD Work Phone: Kidney [facility] Comment on above: Serositis (HCC) (Gemini maureen Dx) Start: 10-14-2024 End: 10-14-2024 ambulatory XIOMARA LY Facility:[facility] Start: 10-14-2024 End: 10-14-2024 ambulatory XIOMARA LY Facility:[facility] Start: 10-14-2024 End: 10-15-2024 Patient encounter procedure Xiomara Ly APRN.PRODUCT DEMONSTRATOR Work Phone: Gastroenterology Comment on above: Elevated BUN (Primar y Dx); Elevated serum creatinine; Decreased GFR; Elevated alkaline phosphatase level Pleural effusion (Pr imary Dx) Start: 10-14-2024 End: 10-14-2024 ambulatory KATERINA CONTRERAS Facility:[facility] Start: 10-13-2024 ambulatory LOUISE Rao ty:[facility] Start: 10-13-2024 End: 10-13-2024 Subsequent hospital visit by physician General Keron Ahumada Mc Work Phone: Radiology Comment on above: Cough, unspecified t ype [R05.9] Start: 10-02-2024 End: 10-02-2024 Chart abstracting Katerina Contreras PA-C Work Phone: Pulmonary Medicine Start: 10-02-2024 End: 10-02-2024 Telephone encounter Hui Ivey BILINGUAL INSTRUCTOR Admitting Comment on above: Appointment Confirma tion Start: 10-02-2024 End: 10-16-2024 ambulatory Sue Murillo MD Work Phone: Gastroenterology Comment on above: Willie Raymundo 1 Willie Raymundo 1950 Start: 09-25-2024 End: 09-25-2024 ambulatory AMNA CHINCHILLA Facility:[facility] Start: 09-25-2024 End: 09-25-2024 Subsequent hospital visit by physician Shay Dennis MD Work Phone: Gastroenterology Comment on above: Esophageal dysphagia [R13.19] Start: 09-23-2024 End: 09-23-2024 Telephone encounter Ronaldo Flood MD, PhD Work Phone: Thoracic Clinic Comment on above: Received Outside Med ical Records Start: 09-18-2024 End: 09-18-2024 ambulatory Melinda Calderón RNdry house wheeler Start: 09-14-2024 End: 09-14-2024 Telephone encounter Amanda ([facility] Comment on above: Patient Update Start: 09-11-2024 End: 09-11-2024 ambulatory JOSE ANTONIO ISAKOV Facility:[facility] Start: 09-11-2024 End: 09-11-2024 ambulatory [facility] Work Phone: Start: 09-11-2024 End: 09-11-2024 Patient encounter procedure [facility] Work Phone: Start: 09-08-2024 End: 09-08-2024 ambulatory ROSEANN ROSARIO Facility:[facility] Start: 09-04-2024 End: 09-04-2024 Telephone encounter Deitre Angel CT HOSP MAIN [id number] Start: 09-04-2024 End: 09-04-2024 Patient encounter procedure Jose Antonio Hopper MD Work Phone: Jose Antonio Hopper MD Comment on above: 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); Hypokalemia; Lymphocytic colitis; Anemia, unspecified type; Chronic insomnia Start: 09-04-2024 End: 09-04-2024 ambulatory JAMES ENAMORADO Facility:[facility] Start: 09-03-2024 End: 09-03-2024 ambulatory JOSE ANTONIO HOPPER Facility:[facility] Start: 09-03-2024 Non-patient / Non-visit [facility] Work Phone: Start: 09-02-2024 End: 09-02-2024 Telephone encounter Della Barragan APRN.[facility] Work Phone: Admitting Comment on above: Post Dc Program Call - Needs Attn Appointment (Thorace ntesis) Start: 09-02-2024 Non-patient / Non-visit [facility] Work Phone: Start: 09-01-2024 End: 09-01-2024 Orders Only Jose Antonio Hopper MD Work Phone: Jose Antonio Hopper MD Comment on above: 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) Start: 08-31-2024 Non-patient / Non-visit [facility] Work Phone: Start: 08-30-2024 Non-patient / Non-visit [facility] Work Phone: Start: 08-28-2024 Non-patient / Non-visit [facility] Work Phone: Start: 08-28-2024 End: 08-28-2024 Orders Only Jose Antonio Hopper MD Work Phone: Jose Antonio Hopper MD Comment on above: 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) Start: 08-27-2024 End: 08-27-2024 Bamboo flowsheet Raji Bynum MD Work Phone: [facility] Start: 08-27-2024 End: 08-27-2024 Bamboo flowsheet Raji Bynum MD Work Phone: [facility] Start: 08-27-2024 End: 08-27-2024 Office outpatient visit 15 minutes Raji Bynum MD Work Phone: [facility] Comment on above: Seborrheic keratosis (Primary Dx); Actinic keratosis; Stasis dermatitis of both legs; Lentigines Start: 08-27-2024 End: 08-27-2024 ambulatory RAJI BYNUM Not Available Start: 08-26-2024 End: 08-26-2024 Follow-up encounter Sue Murillo MD Work Phone: Gastroenterology Start: 08-24-2024 Non-patient / Non-visit [facility] Work Phone: Start: 08-24-2024 End: 08-24-2024 ambulatory JOSE ANTONIO HOPPER Facility:[facility] Start: 08-24-2024 End: 08-24-2024 Office outpatient visit 25 minutes Sue Murillo MD Work Phone: Gastroenterology Comment on above: Lymphocytic colitis (Primary Dx); Esophageal dysphagia Start: 08-24-2024 End: 08-24-2024 ambulatory SUE MURILLO Facility:[facility] Start: 08-21-2024 End: 08-21-2024 Telephone encounter Della Barragan APRN.PRODUCT DEMONSTRATOR Work Phone: Cardiology Comment on above: Post Dc Program Call - Needs Attn Refill Request Start: 08-18-2024 End: 08-18-2024 ambulatory DELLA BARRAGAN Facility:[facility] Start: 08-18-2024 End: 08-18-2024 Patient encounter procedure Della Barragan APRN.PRODUCT DEMONSTRATOR Work Phone: Thoracic Clinic Comment on above: Pleural effusion (Pr imary Dx) Start: 08-13-2024 Non-patient / Non-visit [facility] Work Phone: Start: 08-13-2024 End: 08-13-2024 ambulatory TRISTON RIGGS Facility:[facility] Start: 08-13-2024 End: 08-13-2024 Subsequent hospital visit by physician [facility] Comment on above: Pleural effusion [J9 [...] 08-10-2024 End: 10-28-2024 Telephone encounter Amanda ([facility] [place] [facility] Comment on above: Patient Question [...] imary Dx) Start: 07-29-2024 Non-patient / Non-visit [facility] Work Phone: Start: [...] Lymphocytic colitis Start: 07-20-2024 Non-patient / Non-visit [facility] Work Phone: Start: 07-20-2024 End: 07-20-2024 ambulatory TRISTON RIGGS Facility:[facility] Start: 07-20-2024 End: 07-20-2024 Patient encounter procedure Triston Riggs MD Work Phone: Pulmonary Medicine Comment on above: Pleural effusion (Pr imary Dx); Pleuritis; Pericardial effusion (noninflammatory); Chronic cough Start: 07-20-2024 End: 07-20-2024 ambulatory KATERINA CONTRERAS Facility:[facility] Start: 07-20-2024 End: 07-20-2024 Subsequent hospital visit by physician Xr Chest Main Qb1 Radiology Comment on above: Pleural effusion [J9 0] Start: 07-17-2024 End: 07-17-2024 Chart abstracting Katerina Contreras PA-C Work Phone: Pulmonary Medicine Start: 07-16-2024 End: 07-16-2024 Telephone encounter Triston Riggs MD Work Phone: Pulmonary Medicine Comment on above: Orders Start: 07-16-2024 End: 07-16-2024 ambulatory TRISTON RIGGS Facility:[facility] Start: 07-14-2024 End: 07-14-2024 Patient encounter procedure [facility] Work Phone: Start: 07-10-2024 End: 07-13-2024 James Edouard DO Work Phone: [facility] Start: 07-08-2024 End: 07-09-2024 Chart abstracting Katerina Contreras PA-C Work Phone: Pulmonary Medicine Start: 06-29-2024 End: 06-29-2024 Telephone encounter Benny Ortiz [facility] [id number] Comment on above: Appointment [...] Start: 06-01-2024 End: 06-01-2024 ambulatory STEFFEN VILLA Facility:[facility] Start: 06-01-2024 End: 06-01-2024 Office outpatient visit 25 minutes Steffen Villa MD Work Phone: Rheumatology Comment on above: Pleural effusion (Pr imary Dx); Elevated sed rate; Elevated C-reactive protein (CRP) Start: 05-29-2024 End: 05-29-2024 ambulatory YULI MARISCAL Facility:[facility] Start: 05-26-2024 End: 05-26-2024 ambulatory SUE MURILLO Facility:[facility] Start: 05-26-2024 End: 05-26-2024 Office outpatient visit 25 minutes Sue Murillo MD Work Phone: Gastroenterology Comment on above: Lymphocytic colitis (Primary Dx) Start: 05-25-2024 End: 05-25-2024 Telephone encounter Marcy Longoria [facility] Ad[facility] Start: 05-18-2024 End: 05-18-2024 ambulatory LOUISE CESAR Facility:[facility] Start: 05-18-2024 End: 05-18-2024 Subsequent hospital visit by physician [facility] Work Phone: Radiology Comment on above: Pleural effusion [J9 0] Start: 05-18-2024 End: 05-18-2024 ambulatory LOUISE CESAR Facility:[facility] Start: 05-18-2024 End: 05-18-2024 Patient encounter procedure [...] Orders Only Sue Murillo MD Work Phone: [facility] Endoscopy - ENDO Start: 04-28-2024 ambulatory [employer] [facility] [employer] [facility] [facility] Facility:[facility] Start: 04-28-2024 End: 04-28-2024 Subsequent hospital visit by physician Vic Ponce MD Work Phone: [facility] Endoscopy - ENDO Comment on above: Diarrhea, unspecifie d type [R19.7] Start: 04-28-2024 ambulatory BOBBY Manuel y:[facility] Start: 04-22-2024 End: 04-22-2024 ambulatory SUE CLARKR Facility:[facility] Start: 04-22-2024 End: 04-22-2024 Subsequent hospital visit by physician [facility] (I-Stat) CT Scan [facility] Comment on above: Diarrhea, unspecifie d type [R19.7] Start: 04-20-2024 End: 04-20-2024 ambulatory SUE GIOVANNIEER Facility:[facility] Start: 04-20-2024 End: 04-20-2024 Office outpatient new 45 minutes Sue Murillo MD Work Phone: Gastroenterology Comment on above: Abdominal pain, unsp ecified abdominal location (Primary Dx); Diarrhea, unspecified type Start: 04-20-2024 End: 04-20-2024 ambulatory SUE NASR Facility:[facility] Start: 03-30-2024 End: 03-30-2024 Office outpatient new 60 minutes Steffen Villa MD Work Phone: Rheumatology Comment on above: Pleural effusion (Pr imary Dx); Elevated sed rate; Elevated C-reactive protein (CRP); Diarrhea, unspecified type Start: 03-26-2024 ambulatory UDDALAK ARSENIO Facili ty:[facility] Start: 03-26-2024 End: 03-26-2024 Subsequent hospital visit by physician [facility] Work Phone: Cardiovascular Testing Comment on above: Pericarditis, unspec ified chronicity, unspecified type [I31.9] Start: 03-17-2024 ambulatory UDDALAK ARSENIO Facili ty:[facility] Start: 03-17-2024 End: 03-17-2024 Subsequent hospital visit by physician Radio Ct Scan [place] Work Phone: Radiology Comment on above: Interstitial pulmona ry disease (HCC) [J84.9] Start: 03-17-2024 End: 03-17-2024 ambulatory UDDALAK ARSENIO Pulmonary Lab Comment on above: Spirometry Start: 03-17-2024 End: 03-17-2024 Patient encounter procedure Ruam Oshea PA-C Work Phone: Thoracic Surgery Comment on above: Pleural effusion (Pr imary Dx) Start: 03-17-2024 End: 03-17-2024 Patient encounter procedure Louise Cesar MD Work Phone: PULMONOLOGY [facility] Comment on above: Chronic cough (Prima ry Dx); Pleural effusion; Pleuritis; Interstitial pulmonary disease (HCC); Pericardial effusion (noninflammatory); Pericarditis, unspecified chronicity, unspecified type Start: 03-17-2024 End: 03-17-2024 Subsequent hospital visit by physician [facility] XRAY / RADIOLOGY [facility] Comment on above: Chronic bronchitis, unspecified chronic bronchitis type (HCC) [J42] Start: 03-17-2024 End: 03-17-2024 Patient encounter procedure Pulm Fct Lab1 - [place] PULMONOLOGY LAB [facility] Start: 03-17-2024 End: 03-17-2024 ambulatory LOUISE CESAR PULMONOLOGY LAB [facility] Comment on above: Spirometry Start: 03-03-2024 [...] 02-04-2024 Patient encounter procedure [facility] BOARD CERTIFIED MUSIC THERAPIST.PRODUCT DEMONSTRATOR Work Phone: Thoracic Surgery Comment on above: Pleural effusion (Pr imary Dx); Elevated sed rate; Elevated C-reactive protein (CRP) Start: 02-04-2024 End: 02-04-2024 ambulatory [facility] Facility:[facility] Start: 02-04-2024 End: 02-04-2024 Subsequent hospital visit by physician Xr [facility] Comment on above: Pleural effusion [J9 0] Start: 01-28-2024 End: 01-28-2024 Orders Only Nena Huff DO Work Phone: [facility] Start: 01-22-2024 Admission to [facility] BOARD CERTIFIED MUSIC THERAPIST.PRODUCT DEMONSTRATOR Work Phone: Thoracic Surgery Comment on above: Willie Raymundo - Romain jimenez Start: 01-22-2024 ambulatory [facility] BOARD CERTIFIED MUSIC THERAPIST.PRODUCT DEMONSTRATOR Work Phone: Thoracic Surgery Start: 01-20-2024 Telephone encounter Ronaldo mercado MD, PhD Work Phone: Thoracic Clinic Comment on above: Received 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 [J90] Start: 12-20-2023 End: 12-26-2023 Evaluation and management of inpatient YEHUDA DIAL Facility:[facility] Start: 12-20-2023 End: 12-20-2023 [facility] BOARD CERTIFIED MUSIC THERAPIST.PRODUCT DEMONSTRATOR Work Phone: Thoracic Surgery Comment on above: Follow-up examinatio n after lung surgery (Primary Dx); Pleural effusion; Bilateral lower extremity edema; Anasarca; Nausea vomiting and diarrhea Start: 12-20-2023 End: 12-20-2023 ambulatory [facility] Facility:[facility] Start: 12-20-2023 End: 12-20-2023 Subsequent hospital visit by physician Xr [facility] Comment on above: Pleural effusion [J9 0] Start: 12-17-2023 Telephone encounter Ronaldo mercado MD, PhD Work Phone: Cardiology Start: 12-13-2023 End: 12-13-2023 Patient encounter procedure [facility] BOARD CERTIFIED MUSIC THERAPIST.PRODUCT DEMONSTRATOR Work Phone: Thoracic Surgery Comment on above: Pleural effusion (Pr imary Dx) Start: 12-13-2023 End: 12-13-2023 ambulatory [facility] Facility:[facility] Start: 12-13-2023 End: 12-13-2023 Subsequent hospital visit by physician Xr [facility] Comment on above: Pleural effusion [J9 0] Start: 12-03-2023 Telephone encounter Tita alvarez BOARD CERTIFIED MUSIC THERAPIST.PRODUCT DEMONSTRATOR Work Phone: Thoracic Clinic Comment on above: Schedule and Confirm Appointments Start: 12-03-2023 End: 12-03-2023 [facility] BOARD CERTIFIED MUSIC THERAPIST.PRODUCT DEMONSTRATOR Work Phone: Thoracic Surgery Comment on above: Follow-up examinatio n after lung surgery (Primary Dx); Pleural effusion Start: 12-03-2023 End: 12-03-2023 ambulatory [facility] Facility:[facility] Start: 12-03-2023 End: 12-03-2023 Subsequent hospital visit by physician Xr [facility] RADIO [facility] Comment on above: Follow-up exam [Z09] Start: 11-29-2023 End: 11-29-2023 Orders Only [facility] BOARD CERTIFIED MUSIC THERAPIST.PRODUCT DEMONSTRATOR Work Phone: Thoracic Clinic Comment on above: [...] End: 11-12-2023 Patient encounter status Card Injection [facility] Start: 11-12-2023 End: 11-12-2023 Subsequent hospital visit by physician Card Injection [facility] Start: 11-12-2023 End: 11-12-2023 Patient encounter status Xr J1 Work Phone: [facility] Start: 11-12-2023 End: 11-12-2023 Subsequent hospital visit by physician Rolan Chest Main J1 Work Phone: Radiology Comment on above: Pleural effusion [J9 0] Start: 11-07-2023 Telephone encounter Ronaldo mercado MD, PhD Work Phone: Thoracic Clinic Comment on above: Patient Question (pt not) Start: 10-24-2023 Admission to [facility] Ronaldo Flood MD, PhD Work Phone: Thoracic Clinic Comment on above: Schedule Surgery (Ri ght VATS biopsy/ pleurodesis cs=2.5 los =2-3) Start: 10-24-2023 ambulatory Ronaldo Flood MD, PhD Work Phone: Thoracic Clinic Start: 10-24-2023 Patient encounter status Ronaldo Flood MD, PhD Work Phone: [facility] Start: 10-24-2023 End: 10-24-2023 Patient encounter procedure Ronaldo Flood MD, PhD Work Phone: Thoracic Clinic Comment on above: Obesity, Class I, BM I 30-34.9 (Primary Dx); Pleural effusion Start: 10-16-2023 Telephone encounter Ronaldo mercado MD, PhD Work Phone: Thoracic Clinic Comment on above: External Referrals/r esources Start: 10-15-2023 Telephone encounter No Pcp BOARD CERTIFIED MUSIC THERAPIST Ref erring Physician Comment on above: External Referrals/r esources Start: 10-02-2023 End: 10-02-2023 ambulatory DO Calin Samsa Work Phone: [facility] Work Phone: Start: 10-02-2023 End: 10-02-2023 Departed Referred DO Calin Samsa Work Phone: [facility] Start: 10-01-2023 End: 10-01-2023 ambulatory Calin P Samsa Facility:[facility] Start: 10-01-2023 Non-patient / Non-visit DO Shila tirado Samsa Work Phone: [facility] Work Phone: Start: 09-11-2023 Non-patient / Non-visit DO Shila tirado Samsa Work Phone: [facility] Work Phone: Start: 09-05-2023 End: 09-05-2023 ambulatory Calin P Samsa Facility:[facility] Start: 09-05-2023 End: 09-05-2023 ambulatory DO Calin Samsa Work Phone: [facility] Work Phone: Start: 09-05-2023 End: 09-05-2023 Departed Referred DO Calin Samsa Work Phone: [facility] Start: 09-04-2023 End: 09-04-2023 ambulatory Calin P Samsa Facility:[facility] Start: 09-04-2023 End: 09-04-2023 ambulatory DO Calin Samsa Work Phone: [facility] Work Phone: Start: 09-04-2023 End: 09-04-2023 Departed Referred DO Calin Samsa Work Phone: [facility] Start: 09-04-2023 Non-patient / Non-visit DO Shila tirado Samsa Work Phone: [facility] Work Phone: Start: 08-28-2023 Non-patient / Non-visit DO Shila tirado Samsa Work Phone: [facility] Work Phone: Start: 08-22-2023 Non-patient / Non-visit DO Shila tirado Samsa Work Phone: [facility] Work Phone: Start: 08-21-2023 Non-patient / Non-visit DO Shila tirado Samsa Work Phone: [facility] Work Phone: Start: 08-15-2023 Non-patient / Non-visit DO Shila tirado Samsa Work Phone: [facility] Work Phone: Start: 08-13-2023 End: 08-13-2023 Patient encounter procedure DO Calin Clemente Work Phone: [facility] Work Phone: Start: 07-23-2023 End: 07-23-2023 ambulatory Yuli Mariscal Other [facility] Other Start: 07-23-2023 Patient encounter procedure Yuli Mariscal [facility] Start: 07-10-2023 End: 07-10-2023 ambulatory Yuli Mariscal Other [facility] Other Start: 07-10-2023 Telephone encounter Yuli VILLAFUERTE G [facility] Start: 07-08-2023 End: 07-08-2023 ambulatory Yuli Mariscal Other [facility] Other Start: 07-08-2023 Telephone encounter Yuli VILLAFUERTE G [facility] Start: 07-07-2023 End: 07-07-2023 ambulatory Yuli Mariscal Other [facility] Other Start: 07-07-2023 Telephone encounter Yuli VILLAFUERTE G [facility] Start: 06-25-2023 End: 06-25-2023 Orders Only Janet Spangler MA [facility] Comment on above: Status post total kn ee replacement, bilateral (Primary Dx) Start: 06-25-2023 Telephone encounter Yuli VILLAFUERTE G [facility] Start: 05-07-2023 End: 05-07-2023 ambulatory Yuli Mariscal Other [facility] Other Start: 05-07-2023 Telephone encounter Yuli Mariscal FP G [facility] Start: 04-24-2023 End: 04-24-2023 ambulatory Yuli Mariscal Other [facility] Other Start: 04-24-2023 Telephone encounter Yuli Mariscal FP G [facility] Start: 04-22-2023 End: 04-22-2023 ambulatory Yuli Loida Other [facility] Other Start: 04-22-2023 Patient encounter procedure Yuli LIU [facility] Start: 04-19-2023 End: 04-19-2023 ambulatory Yuli Mariscal Other [facility] Other Start: 04-19-2023 Telephone encounter Yuli Perez [facility] Start: 04-17-2023 End: 04-17-2023 ambulatory Yuli Mariscal Other [facility] Other Start: 04-17-2023 Telephone encounter Yuli Perez [facility] Start: 02-11-2023 End: 02-11-2023 Phys/qhp telephone evaluation 5-10 min Margie Edouard DO Work Phone: [facility] Comment on above: Hallux rigidus of le ft foot (Primary Dx) Start: 02-11-2023 End: 02-15-2023 James Spangler MA [facility] Start: 01-16-2023 End: 01-20-2023 ambulatory YULI MARISCAL [facility] Start: 01-16-2023 End: 01-16-2023 Office outpatient visit 10 minutes Nena Huff DO Work Phone: [facility] Comment on above: Status post total kn ee replacement, bilateral (Primary Dx) Start: 01-10-2023 End: 01-10-2023 ambulatory Yuli Mariscal Other [facility] Other Start: 01-10-2023 Patient encounter procedure Yuli LIU [facility] Start: 11-19-2022 End: 11-19-2022 ambulatory YULI MARISCAL [facility] Start: 11-19-2022 End: 11-19-2022 Office outpatient visit 15 minutes Margie Edouard DO Work Phone: [facility] Comment on above: Hallux rigidus of le ft foot (Primary Dx) Start: 10-08-2022 End: 10-08-2022 ambulatory YULI MARISCAL [facility] Start: 10-08-2022 End: 10-08-2022 Office outpatient visit 5 minutes Grecia Faith PA-C Work Phone: [facility] Comment on above: Hallux rigidus of le ft foot (Primary Dx); Metatarsalgia, left foot Start: 08-30-2022 Refill Janet Spangler MA [facility] Start: 08-28-2022 End: 09-01-2022 Refill Becca Carrasco [employer] [facility] Start: 08-28-2022 End: 08-28-2022 Office outpatient new 30 minutes Margie Edouard DO Work Phone: [facility] [...] Work Phone: [facility] Start: 07-20-2020 End: 07-20-2020 Office outpatient visit 10 minutes Nena Huff Work Phone: [facility] Comment on above: Status post total kn ee replacement, bilateral (Primary Dx) Start: 07-01-2019 End: 07-01-2019 Office outpatient visit 10 minutes Nena Huff Work Phone: [facility] Comment on above: Status post total kn ee replacement, bilateral (Primary Dx) Start: 07-30-2017 Office/outpatient visit, est, level 3 Karthik Calloway Work Phone: [facility] Start: 01-29-2017 End: 01-29-2017 Office outpatient visit 15 minutes Karthik Calloway Work Phone: [facility] [...] artl krystal abdl/pel/scrot&/rpr orgn com Marlyn Hooper BOARD CERTIFIED MUSIC THERAPIST.PRODUCT DEMONSTRATOR Work Phone: Start: 02-19-2025 US ABD LIVER VASCULAR Marlyn Hooper BOARD CERTIFIED MUSIC THERAPIST.PRODUCT DEMONSTRATOR Work Phone: Start: 11-23-2024 Radiologic exam chest [...] DO Work Phone: Start: 08-12-2024 End: 08-12-2024 [facility] medical xm&eval comprhnsv estab pt 1/> Early [...] exam chest 2 views [facility] BOARD CERTIFIED MUSIC THERAPIST.PRODUCT DEMONSTRATOR Work Phone: Start: 05-18-2024 Albumin serum plasma/whole [...] 03-17-2024 Nitric oxide gas determination Katerina Bravo APRN.PRODUCT DEMONSTRATOR Work Phone: Start: 03-17-2024 Brncdilat rspse spmtry pre&post-brncdilat admn Katerina Bravo APRN.PRODUCT DEMONSTRATOR Work Phone: Start: 02-04-2024 Radiologic exam chest [...] Start: 10-01-2023 Acid Fast Smear DO [facility] Work Phone: Start: 10-01-2023 AFB Specimen Processing DO [facility] Work Phone: Start: 10-01-2023 Microscopic observation [Identifier] in Unspecified specimen by Gram stain DO [facility] Work Phone: Start: 09-04-2023 Acid Fast Smear DO [facility] Work Phone: Start: 09-04-2023 AFB Specimen Processing DO [facility] Work Phone: Start: 09-04-2023 Microscopic observation [Identifier] in Unspecified specimen by Gram stain DO [facility] Work Phone: Start: 10-08-2022 Follow-up visit Follow-up GRECIA FAITH Start: 03-19-[address] RUBIO LISTED REQUEST Comment on above: Performed By: #### PSASC #### [facility] [address] [place] [address] Dr. Joni Sanders Screening for malign ant neoplasm of colon Yuli Ball Other Plan of Treatment Date Care Activity Detail Author Start: 05-27-2034 Urine microalbumin profile DTaP,Tdap,Td Vaccine (2 - Td or Tdap) [facility] Start: 04-28-2034 Screening for malignant neoplasm of colon [facility] Start: 05-18-2029 Lipid panel Lipid Screening [facility] Start: 12-19-2028 Lipid panel Lipid Screening [facility] Start: 08-30-2028 Tetanus vaccination Tetanus: Every 10yrs [facility] Start: 02-12-2028 Diabetes Screening Diabetes Screening [facility] Start: 01-26-2028 Diabetes Screening Diabetes Screening [facility] Start: 01-09-2028 Diabetes Screening Diabetes Screening [facility] Start: 12-23-2027 Diabetes Screening Diabetes Screening [facility] Start: 11-18-2027 Diabetes Screening Diabetes Screening [facility] Start: 11-13-2027 Diabetes Screening Diabetes Screening [facility] Start: 11-06-2027 Diabetes Screening Diabetes Screening [facility] Start: 10-16-2027 Diabetes Screening Diabetes Screening [facility] Start: 10-15-2027 Diabetes Screening Diabetes Screening [facility] Start: 09-12-2027 Diabetes Screening Diabetes Screening [facility] Start: 09-04-2027 Diabetes Screening Diabetes Screening [facility] Start: 08-29-2027 Diabetes Screening Diabetes Screening [facility] Start: 08-25-2027 Diabetes Screening Diabetes Screening [facility] Start: 07-29-2027 Diabetes Screening Diabetes Screening [facility] Start: 05-29-2027 Diabetes Screening Diabetes Screening [facility] Start: 05-18-2027 Diabetes Screening Diabetes Screening [facility] Start: 04-20-2027 Diabetes Screening Diabetes Screening [facility] Start: 03-30-2027 Diabetes Screening Diabetes Screening [facility] Start: 03-03-2027 Diabetes Screening Diabetes Screening [facility] Start: 01-23-2027 Diabetes Screening Diabetes Screening [facility] Start: 01-01-2027 Diabetes Screening Diabetes Screening [facility] Start: 12-25-2026 Diabetes Screening Diabetes Screening [facility] Start: 12-19-2026 Diabetes Screening Diabetes Screening [facility] Start: 11-22-2026 Diabetes Screening Diabetes Screening [facility] Start: 11-11-2026 Diabetes Screening Diabetes Screening [facility] Start: 2026 Respiratory Syncytial Virus Immunization: Risk, 60-74 Risk, or 75+ (1 - 1-dose 75+ series) Respiratory Syncytial Virus Immunization: Risk, 60-74 Risk, or 75+ (1 - 1-dose 75+ series) [facility] Start: 02-11-2026 Creatinine measurement Serum Creatinine [facility] Start: 01-26-2026 Annual PCP Team Chronic Disease Visit Annual PCP Team Chronic Disease Visit [facility] Start: 01-25-2026 Complete blood count Hemoglobin/Hematocrit [facility] Start: 01-25-2026 Creatinine measurement Serum Creatinine [facility] Start: 12-15-2025 Annual PCP Team Chronic Disease Visit Annual PCP Team Chronic Disease Visit [facility] Start: 11-23-2025 BP Controlled (<130/80) BP Controlled (<130/80) [facility] Start: 11-20-2025 BP Controlled (<130/80) BP Controlled (<130/80) [facility] Start: 11-13-2025 Annual PCP Team Chronic Disease Visit Annual PCP Team Chronic Disease Visit [facility] Start: 11-13-2025 BP Controlled (<130/80) BP Controlled (<130/80) [facility] Start: 09-04-2025 Annual PCP Team Chronic Disease Visit Annual PCP Team Chronic Disease Visit [facility] Start: 09-04-2025 BP Controlled (<130/80) [...] Visit Annual PCP Team Chronic Disease Visit [facility] Start: 06-12-2025 Annual PCP Team Chronic Disease Visit Annual PCP Team Chronic Disease Visit [facility] Start: 06-12-2025 BP Controlled (<130/80) BP Controlled (<130/80) [facility] Start: 05-21-2025 End: 05-21-2025 Patient encounter procedure 05/21/2025 2:00 PM EST Office Visit Cardiology [address] [place] [address] [place] [address] [facility] [place] [address] 6 month follow up Cardiology Comment on above: 6 month follow up Start: 05-14-2025 End: 05-14-2025 Patient encounter procedure 05/14/2025 8:00 AM EST Office Visit Gastroenterology [address] [address] Christie Palumbo APRN.PRODUCT DEMONSTRATOR [address] [place] [address] Marlyn Hooper Reffered Gastroenterology Comment on above: Marlyn Hooper Reffered Start: 05-13-2025 Annual PCP Team Chronic Disease Visit Annual PCP Team Chronic Disease Visit [facility] Start: 05-13-2025 BP Controlled (<130/80) BP Controlled (<130/80) [facility] in Start: 05-12-2025 End: 05-12-2025 Patient encounter procedure 05/12/2025 8:25 AM EST Office Visit Gastroenterology [address] [address] Luis Valentine MD [address] [place] [address] Marlyn Hooper Reffered Gastroenterology Comment on above: Marlyn Hooper Reffered Start: 04-28-2025 Screening for malignant neoplasm of colon [facility] Start: 04-07-2025 End: 04-07-2025 Patient encounter procedure 04/07/2025 2:45 PM EDT Procedure Visit [facility] [address] [place] [phone] Jamel Chowdary DPM [address] [place], [place] [id number] [facility] Start: 03-25-2025 End: 03-25-2025 Patient encounter procedure 03/25/2025 11:15 AM EDT Office Visit [facility] [address] [place] [address] Jamel Chowdary DPM [address] [place] [address] [facility] Start: 03-17-2025 End: 03-17-2025 Patient encounter procedure 03/17/2025 10:15 AM EDT Office Visit [facility] [address] [place] [address] Jamel Chowdary DPM [address] [place] [address] [facility] Start: 03-12-2025 End: 03-12-2025 Patient encounter procedure 03/12/2025 8:45 AM EDT Office Visit [facility] [address] [place] [address] Jamel Chowdary DPM [address] [place] [address] Arrived [facility] Comment on above: Arrived Start: 03-09-2025 End: 03-09-2025 Patient encounter procedure 03/09/2025 1:15 PM EDT [place] [address] [place] [address] [place] [address] [place], [place] [id number] Follow-up Jose Antonio Hopper MD Comment on above: Follow-up Start: 02-25-2025 End: 02-25-2025 Patient encounter procedure 02/25/2025 10:20 AM EDT Office Visit Kidney [facility] [address] [address] Zabrina Suarez MD [address] [place] [address] Elevated serum creatinine [R79.89] [facility] Comment on above: Elevated serum creatinine [R79.89] Start: 02-19-2025 End: 02-19-2025 Patient encounter procedure 02/19/2025 1:30 PM EDT Appointment Radiology [address] [address] Other ascites [R18.8] Radiology Comment on above: Other ascites [R18.8] Start: 02-15-2025 Influenza vaccination Influenza Vaccine (#1) [facility] Start: 02-11-2025 Annual PCP Team Chronic Disease Visit Annual PCP Team Chronic Disease Visit [facility] Start: 02-11-2025 BP Controlled (<130/80) BP Controlled (<130/80) [facility] in Start: 02-09-2025 End: 05-10-2025 Comprehensive metabolic 2000 panel - Serum or Plasma COMPREHENSIVE METABOLIC PANEL Lab Routine Stage 3a chronic kidney disease (HCC) Expected: 02/09/2025, Expires: 05/10/2025 JORDI HOPPER MD [employer] Work Phone: Comment on above: Expected: 02/09/2025, Expires: Start: 02-03-2025 BP Controlled (<130/80) BP Controlled (<130/80) [facility] in Start: 02-02-2025 End: 02-02-2025 Admission to same day surgery center 02/02/2025 9:30 AM EDT - 02/02/2025 11:20 AM EDT Surgery [facility]io [address] [place] [address] CUSTOMER SUPPORT ASSISTANT [address] [place] [address] TRANSCATHETER BIOPSY Angio Comment on above: TRANSCATHETER BIOPSY Start: 02-02-2025 Subsequent hospital visit by physician 02/02/2025 9:30 AM EDT Hospital Encounter [facility] [address] [facility] [place] [address] CUSTOMER SUPPORT ASSISTANT [address] [place] [address] Elevated alkaline phosphatase level [R74.8] Angio Comment on above: Elevated alkaline phosphatase level [R74 .8] Start: 02-02-2025 End: 02-02-2025 Transcatheter biopsy TRANSCATHETER BIOPSY Elevated alkaline phosphatase level 02/02/2025 9:30 AM EDT [facility]6 Start: 01-26-2025 End: 01-26-2025 Patient encounter procedure 01/26/2025 1:00 PM EDT [place] [address] [place] [address] [place] [address] [place] [address] Follow-up Jose Antonio Hopper MD Comment on above: Follow-up Start: 01-14-2025 Annual PCP Team Chronic Disease Visit Annual PCP Team Chronic Disease Visit [facility] Start: 01-11-2025 End: 01-11-2025 Patient encounter procedure 01/11/2025 9:30 AM EDT Office Visit Pulmonary Medicine [address] [place] [address] Triston Riggs MD [address] [place] [address] 4-6 weeks Pulmonary Medicine Comment on above: 4-6 weeks Start: 01-08-2025 End: 01-08-2025 Patient encounter procedure 01/08/2025 1:00 PM EDT Appointment Radiology [address] [place] [address] [place] [address] XR CHEST 2V FRONTAL/LAT Radiology Comment on above: XR CHEST 2V FRONTAL/LAT Start: 12-22-2024 End: 12-22-2024 ambulatory 12/22/2024 6:00 PM EDT [facility] [address] [address] Marlyn Hooper APRN.PRODUCT DEMONSTRATOR [address] [place] [address] Elevated alkaline phosphatase leve Gastroenterology Comment on above: Elevated alkaline phosphatase leve Start: 12-22-2024 End: 03-23-2025 Alpha 1 antitrypsin [Mass/volume] in Serum or Plasma [id number] Lab Routine Elevated alkaline phosphatase level Expected: 12/22/2024, Expires: 03/23/2025 [facility] Comment on above: Expected: 12/22/2024, Expires: Start: 12-22-2024 End: 03-23-2025 GREY BY IFA WITH REFLEX GREY BY IFA WITH REFLEX Lab Routine Elevated alkaline phosphatase level Expected: 12/22/2024, Expires: 03/23/2025 [facility] Comment on above: Expected: 12/22/2024, Expires: Start: 12-22-2024 End: 03-23-2025 Basic metabolic 2000 panel - Serum or Plasma BASIC METABOLIC PANEL Lab Routine Hypokalemia Expected: 12/22/2024, Expires: 03/23/2025 JORDI HOPPER MD [facility] Work Phone: Comment on above: Expected: 12/22/2024, Expires: Start: 12-22-2024 End: 03-23-2025 CBC panel - Blood by Automated count COMPLETE BLOOD COUNT Lab Routine Elevated alkaline phosphatase level Expected: 12/22/2024, Expires: 03/23/2025 [facility] Comment on above: Expected: 12/22/2024, Expires: Start: 12-22-2024 End: 03-23-2025 Chronic hepatitis differentiation between hepatitis B and C virus panel - Serum or Plasma HEP REMOTE PANEL BL Lab Routine Elevated alkaline phosphatase level Expected: 12/22/2024, Expires: 03/23/2025 [facility] Comment on above: Expected: 12/22/2024, Expires: Start: 12-22-2024 End: 03-23-2025 Comprehensive metabolic 2000 panel - Serum or Plasma COMPREHENSIVE METABOLIC PANEL Lab Routine Elevated alkaline phosphatase level Expected: 12/22/2024, Expires: 03/23/2025 [facility] Comment on above: Expected: 12/22/2024, Expires: Start: 12-22-2024 End: 03-23-2025 Cytomegalovirus IgM Ab [Units/volume] in Serum or Plasma CMV IGM AB Lab Routine Elevated alkaline phosphatase level Expected: 12/22/2024, Expires: 03/23/2025 [facility] Comment on above: Expected: 12/22/2024, Expires: Start: 12-22-2024 End: 03-23-2025 Ferritin [Mass/volume] in Serum or Plasma FERRITIN Lab Routine Elevated alkaline phosphatase level Expected: 12/22/2024, Expires: 03/23/2025 [facility] Comment on above: Expected: 12/22/2024, Expires: Start: 12-22-2024 End: 03-23-2025 Gamma glutamyl transferase [Enzymatic activity/volume] in Serum or Plasma GGT Lab Routine Elevated alkaline phosphatase level Expected: 12/22/2024, Expires: 03/23/2025 [facility] Comment on above: Expected: 12/22/2024, Expires: Start: 12-22-2024 End: 03-23-2025 Iron and Iron binding capacity panel - Serum or Plasma IRON AND TIBC Lab Routine Elevated alkaline phosphatase level Expected: 12/22/2024, Expires: 03/23/2025 [facility] Comment on above: Expected: 12/22/2024, Expires: Start: 12-22-2024 End: 03-23-2025 Liver kidney microsomal Ab [Titer] in Serum by Immunofluorescence LIVER-KIDNEY MICROSOME ANTIBODY, IGG Lab Routine Elevated alkaline phosphatase level Expected: 12/22/2024, Expires: 03/23/2025 [facility] Comment on above: Expected: 12/22/2024, Expires: Start: 12-22-2024 End: 03-23-2025 Mitochondria Ab [Presence] in Serum by Immunofluorescence MITOCHONDRIAL M2 IGG SERUM Lab Routine Elevated alkaline phosphatase level Expected: 12/22/2024, Expires: 03/23/2025 [facility] Comment on above: Expected: 12/22/2024, Expires: Start: 12-22-2024 End: 03-23-2025 PT panel - Platelet poor plasma by Coagulation assay PROTHROMBIN TIME Lab Routine Elevated alkaline phosphatase level Expected: 12/22/2024, Expires: 03/23/2025 [facility] Comment on above: Expected: 12/22/2024, Expires: Start: 12-22-2024 End: 03-23-2025 Smooth muscle Ab [Presence] in Serum SMOOTH MUSCLE AB SCR Lab Routine Elevated alkaline phosphatase level Expected: 12/22/2024, Expires: 03/23/2025 [facility] Comment on above: Expected: 12/22/2024, Expires: Start: 12-16-2024 End: 12-16-2024 Patient encounter procedure Vascular Surgery Comment on above: Extremity cyanosis [R23.0] Start: 12-16-2024 End: 12-16-2024 Patient encounter procedure 12/16/2024 12:30 PM EDT Office Visit Vascular Surgery [address] [place] [address] Extremity cyanosis [R23.0] Vascular Surgery Comment on above: Extremity cyanosis [R23.0] Start: 12-15-2024 End: 12-15-2024 Patient encounter procedure 12/15/2024 11:15 AM ED[place] [address] [place] [address] [place] [address] [place] [address] Follow-up Jose Antonio Hopper MD Comment on above: Follow-up Start: 12-03-2024 End: 12-03-2024 ambulatory 12/03/2024 8:30 AM EDT [facility] [address] [address] Marlyn Hooper APRN.PRODUCT DEMONSTRATOR [address] [place] [address] Elevated alkaline phosphatase leve Gastroenterology Comment on above: Elevated alkaline phosphatase leve Start: 11-23-2024 End: 11-23-2024 Patient encounter procedure Radiology Comment on above: Hepatomegaly [R16.0] Extremity cyanosis [ R23.0] CXR H&P Established Dayan ent Visit Start: 11-20-2024 End: 11-20-2025 Echocardiography ECHO Cardiology Routine Extremity cyanosis Expected: 11/20/2024, Expires: 11/20/2025 [facility] Comment on above: Expected: 11/20/2024, Expires: Start: 11-20-2024 End: 11-20-2024 Patient encounter procedure 11/20/2024 9:00 AM EDT Office Visit Cardiology [address] [place] [address] [place] [address] [facility] [place] [address] PAD, LE with poor perfusion Cardiology Comment on above: PAD, LE with poor perfusion Start: 11-19-2024 End: 11-19-2024 Patient encounter procedure Pulmonary Medicine Comment on above: f/u visit/Dr. KENNEDY will see pt. Start: 11-19-2024 End: 11-19-2024 ambulatory 11/19/2024 10:30 AM EDT [facility] [address] [address] Marlyn Hooper APRN.PRODUCT DEMONSTRATOR [address] [place] [address] Elevated alkaline phosphatase leve Gastroenterology Comment on above: Elevated alkaline phosphatase maloriee Start: 11-14-2024 End: 02-13-2025 Comprehensive metabolic 2000 panel - Serum or Plasma COMPREHENSIVE METABOLIC PANEL Lab Routine Hepatomegaly Expected: 11/14/2024, Expires: 02/13/2025 [facility] Comment on above: Expected: 11/14/2024, Expires: Start: 11-14-2024 End: 02-13-2025 Magnesium [Mass/volume] in Serum or Plasma MAGNESIUM Lab Routine Hypomagnesemia Expected: 11/14/2024, Expires: 02/13/2025 [facility] Comment on above: Expected: 11/14/2024, Expires: Start: 11-13-2024 End: 02-12-2025 Acute hepatitis 2000 panel - Serum HEP ACUTE PANEL BL Lab Routine Hepatomegaly Expected: 11/13/2024, Expires: 02/12/2025 [facility] Work Phone: Comment on above: Expected: 11/13/2024, Expires: Start: 11-13-2024 End: 02-12-2025 AUTOIMMUNE HEPATITIS DIAGNOSTIC PANEL AUTOIMMUNE HEPATITIS DIAGNOSTIC PANEL Lab Routine Hepatomegaly Expected: 11/13/2024, Expires: 02/12/2025 [facility] Comment on above: Expected: 11/13/2024, Expires: Start: 11-13-2024 End: 02-12-2025 COPPER BLOOD COPPER BLOOD Lab Routine Hepatomegaly Expected: 11/13/2024, Expires: 02/12/2025 [facility] Comment on above: Expected: 11/13/2024, Expires: Start: 11-13-2024 End: 02-12-2025 Hepatitis C virus RNA [Units/volume] (viral load) in Serum or Plasma by BRYN with probe detection HEPATITIS C VIRUS (HCV) RNA, QUANTITATIVE PCR, PLASMA/SERUM Lab Routine Hepatomegaly Expected: 11/13/2024, Expires: 02/12/2025 [facility] Comment on above: Expected: 11/13/2024, Expires: Start: 11-13-2024 End: 02-12-2025 Iron and Iron binding capacity panel - Serum or Plasma IRON AND TIBC Lab Routine Hepatomegaly Expected: 11/13/2024, Expires: 02/12/2025 [facility] Comment on above: Expected: 11/13/2024, Expires: Start: 11-13-2024 End: 11-13-2024 Patient encounter procedure 11/13/2024 1:00 PM EDT [place] [address] [place], [place] [id number] [place] [address] [place] [id number] Follow-up Jose Antonio Hopper MD Comment on above: Follow-up Start: 11-04-2024 End: 11-04-2024 Patient encounter procedure [facility] Radiology CT Scan Comment on above: CT ENTEROGRAPHY W IVCON Start: 10-23-2024 End: 10-23-2024 Patient encounter procedure [facility] Draw Station Comment on above: LAB US ABD RIGHT UPPER Q UADRANT Start: 10-19-2024 End: 01-18-2025 Amylase [Enzymatic activity/volume] in Serum or Plasma AMYLASE Lab Routine Serositis ([facility]) Expected: 10/19/2024, Expires: 01/18/2025 [facility] Comment on above: Expected: 10/19/2024, Expires: Start: 10-19-2024 End: 01-18-2025 IGG SUBCLASSES BLD IGG SUBCLASSES BLD Lab Routine Serositis ([facility]) Expected: 10/19/2024, Expires: 01/18/2025 [facility] Work Phone: Comment on above: Expected: 10/19/2024, Expires: Start: 10-19-2024 End: 01-18-2025 Lipase [Enzymatic activity/volume] in Serum or Plasma LIPASE Lab Routine Serositis ([facility]) Expected: 10/19/2024, Expires: 01/18/2025 [facility] Comment on above: Expected: 10/19/2024, Expires: Start: 10-15-2024 End: 01-14-2025 ALK PHOS ISOENZYM [facility] Comment on above: Expected: 10/15/2024, Expires: Start: 10-14-2024 End: 10-14-2024 Patient encounter procedure Pulmonary Medicine Comment on above: EST pt visit in H23 w/Dr Riggs post 10/02 procedure abdominal pain Start: 10-13-2024 End: 10-13-2024 Patient encounter procedure 10/13/2024 1:00 PM EDT Appointment Radiology [address] [place] [address] [place] [address] CHEST XRAY Radiology Comment on above: CHEST XRAY Start: 10-02-2024 End: 10-02-2024 Thoracentesis needle/cath pleura w/imaging THORACENTESIS NEEDLE OR CATHETER ASPIRATION OF THE PLEURAL SPACE W IMAGING GUIDANCE Bronchiolar disease 10/02/2024 11:42 AM EDT PULM LAB H23 Start: 10-02-2024 End: 10-02-2024 Admission to same day surgery center 10/02/2024 10:30 AM EDT - 10/02/2024 11:30 AM EDT Surgery Admitting [address] [place] [address] Merlyn Zavala MD [address] [place] [address] THORACENTESIS NEEDLE OR CATHETER ASPIRATION OF THE PLEURAL SPACE W IMAGING GUIDANCE Admitting Comment on above: THORACENTESIS NEEDLE OR CATHETER ASPIRAT ION OF THE PLEURAL SPACE W IMAGING GUIDANCE Start: 10-02-2024 Subsequent hospital visit by physician 10/02/2024 10:30 AM EDT Hospital Encounter Admitting [address] [place] [address] Merlyn Zavala MD [address] [place] [address] 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] Admitting Comment on above: [...] Expires: 12/11/2024 CP JOSE ANTONIO HOPPER MD [facility] Work Phone: Comment on above: Expected: 09/11/2024, Expires: Start: 09-11-2024 End: 12-11-2024 CBC panel - Blood by Automated count COMPLETE BLOOD COUNT Lab Routine Anemia, unspecified type Expected: 09/11/2024, Expires: 12/11/2024 [facility] Comment on above: Expected: 09/11/2024, Expires: Start: 09-08-2024 End: 09-08-2024 Admission to same day surgery center 09/08/2024 10:30 AM EDT - 09/08/2024 11:30 AM EDT Surgery Admitting [address] [address] Roseann Rosario MD [address] [place] [address] THORACENTESIS NEEDLE OR CATHETER ASPIRATION OF THE PLEURAL SPACE W IMAGING GUIDANCE Admitting Comment on above: THORACENTESIS NEEDLE OR CATHETER ASPIRAT ION OF THE PLEURAL SPACE W IMAGING GUIDANCE Start: 09-08-2024 Subsequent hospital visit by physician 09/08/2024 10:30 AM EDT Hospital Encounter Admitting [address] [address] Roseann Rosario MD [address] [place] [address] 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] Admitting Comment on above: 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] Start: 09-08-2024 End: 09-08-2024 Thoracentesis needle/cath pleura w/imaging THORACENTESIS NEEDLE OR CATHETER ASPIRATION OF THE PLEURAL SPACE W IMAGING GUIDANCE Bronchiolar disease 09/08/2024 10:30 AM EDT PULM LAB H23 Start: 09-04-2024 End: 09-04-2024 Patient encounter procedure 09/04/2024 1:15 PM EDT [place] [address] [place] [address] [place] [address] [place] [address] Follow-up Jose Antonio Hopper MD Comment on above: Follow-up Start: 09-04-2024 End: 09-04-2024 Admission to same day surgery center 09/04/2024 10:30 AM EDT - 09/04/2024 11:30 AM EDT Surgery Admitting [address] [address] James Enamorado MD [address] [place] [address] THORACENTESIS NEEDLE OR CATHETER ASPIRATION OF THE PLEURAL SPACE W IMAGING GUIDANCE Admitting Comment on above: THORACENTESIS NEEDLE OR CATHETER ASPIRAT ION OF THE PLEURAL SPACE W IMAGING GUIDANCE Start: 09-04-2024 Subsequent hospital visit by physician 09/04/2024 10:30 AM EDT Hospital Encounter Admitting [address] [address] James Enamorado MD [address] [place] [address] 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] Admitting Comment on above: [...] effusion on right Expected: 09/01/2024, Expires: 12/01/2024 [facility] Comment on above: Expected: 09/01/2024, Expires: Start: 08-28-2024 End: 11-27-2024 Thyrotropin [Units/volume] in Serum or Plasma [facility] Work Phone: Comment on above: Expected: 08/28/2024, Expires: Start: 08-27-2024 End: 08-27-2024 Patient encounter procedure [facility] Comment on above: Arrived Start: 08-24-2024 End: 11-23-2024 Comprehensive metabolic 2000 panel - Serum or Plasma [facility] Comment on above: Expected: 08/24/2024, Expires: Start: 08-24-2024 End: 11-23-2024 Magnesium [Mass/volume] in Serum or Plasma [facility] Comment on above: Expected: 08/24/2024, Expires: Start: 08-24-2024 End: 11-23-2024 Thyrotropin [Units/volume] in Serum or Plasma [facility] Work Phone: Comment on above: Expected: 08/24/2024, Expires: Start: 08-24-2024 End: 08-24-2024 Patient encounter procedure 08/24/2024 11:00 AM EDT Office Visit Gastroenterology [address] [address] Sue Murillo MD [address] [place] [address] Diarrhea Gastroenterology Comment on above: Diarrhea Start: 08-21-2024 End: 11-20-2024 Basic metabolic 2000 panel - Serum or Plasma BASIC METABOLIC PANEL Lab Routine Recurrent 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 Expected: 08/21/2024, Expires: 11/20/2024 [facility] Work Phone: Comment on above: Expected: 08/21/2024, Expires: Start: 08-18-2024 End: 08-18-2024 Patient encounter procedure 08/18/2024 2:00 PM EST Office Visit Thoracic Clinic [address] [place] [address] Della Barragan, BOARD CERTIFIED MUSIC THERAPIST.PRODUCT DEMONSTRATOR [address] [place], [place] [id number] Pleural Effusion [facility]acic [facility] Comment on above: Pleural Effusion Start: 08-13-2024 End: 08-13-2024 Patient encounter procedure 08/13/2024 9:30 AM EST Appointment Radiology [address] [place], [place] [id number] CHEST XR Radiology Comment on above: CHEST XR Start: 08-12-2024 End: 08-12-2024 Patient encounter procedure 08/12/2024 3:00 PM EST Office Visit [facility] [address] [place] [address] Anne-Marie Bajwa DO [address] [place] [address] Arrived [facility] Comment on above: Arrived Start: 07-28-2024 End: 10-27-2024 Magnesium [Mass/volume] in Serum or Plasma MAGNESIUM Lab Routine Hypomagnesemia Expected: 07/28/2024, Expires: 10/27/2024 [facility] Comment on above: Expected: 07/28/2024, Expires: Start: 07-24-2024 End: 10-23-2024 25-hydroxyvitamin D3 [Mass/volume] in Serum or Plasma VITAMIN D 25 HYDROXY Lab Routine Fatigue, unspecified type Expected: 07/24/2024, Expires: 10/23/2024 [facility] Comment on above: Expected: 07/24/2024, [...] Fatigue, unspecified type Expected: 07/24/2024, Expires: 10/23/2024 [facility] Comment on above: Expected: 07/24/2024, Expires: Start: 07-21-2024 End: 10-20-2024 Basic metabolic 2000 panel - Serum or Plasma BASIC METABOLIC PANEL Lab Routine Anasarca Expected: 07/21/2024, Expires: 10/20/2024 [facility]OPPER MD [facility] Work Phone: Comment on above: Expected: 07/21/2024, Expires: Start: 07-21-2024 End: 07-21-2024 Patient encounter procedure 07/21/2024 2:00 PM EST Office [place] [address] [place] [address] [place] [address] [place], [place] [id number] Follow-up Jose Antonio Hopper MD Comment on above: Follow-up Start: 07-20-2024 End: 08-19-2025 XR Chest AP right lateral-decubitus XR CHEST 1V DECUBITUS RIGHT Radiology Routine Pleural effusion Expected: 07/20/2024, Expires: 08/19/2025 [facility] Comment on above: Expected: 07/20/2024, Expires: Start: 07-20-2024 End: 08-19-2025 XR Chest PA and Lateral XR CHEST 2V FRONTAL/LAT Radiology Routine Pleural effusion Expected: 07/20/2024, Expires: 08/19/2025 [facility] Work Phone: Comment on above: Expected: 07/20/2024, Expires: Start: 07-20-2024 End: 07-20-2024 Patient encounter procedure 07/20/2024 1:00 PM EST Office Visit Pulmonary Medicine [address] [place] [address] Triston Riggs MD [address] [place] [address] Katerina Contreras PA-C [address] [place] [address] H&P Established Patient Pulmonary Medicine Comment on above: H&P Established Patient Start: 06-22-2024 End: 09-21-2024 BODY FLUID CELL COUNT BODY FLUID CELL COUNT Lab Routine Pleural effusion Pleuritis Lymphocytic colitis Pericardial effusion (noninflammatory) Interstitial pulmonary disease (HCC) Expected: 06/22/2024, Expires: 09/21/2024 [facility] Comment on above: Expected: 06/22/2024, Expires: Start: 06-22-2024 End: 09-21-2024 FLOW CYTOMETRY FOR LEUKEMIA/LYMPHOMA (FCLL) FLOW CYTOMETRY FOR LEUKEMIA/LYMPHOMA (FCLL) Lab Routine Pleural effusion Pleuritis Lymphocytic colitis Pericardial effusion (noninflammatory) Interstitial pulmonary disease (HCC) Expected: 06/22/2024, Expires: 09/21/2024 [facility] Comment on above: Expected: 06/22/2024, Expires: Start: 06-22-2024 End: 09-21-2024 Glucose [Mass/volume] in Body fluid GLUCOSE, BODY FLUID Lab Routine Pleural effusion Pleuritis Lymphocytic colitis Pericardial effusion (noninflammatory) Interstitial pulmonary disease (HCC) Expected: 06/22/2024, Expires: 09/21/2024 [facility] Comment on above: Expected: 06/22/2024, Expires: Start: 06-22-2024 End: 09-21-2024 Lactate dehydrogenase [Enzymatic activity/volume] in Body fluid LACTATE DEHYDROGENASE, BODY FLUID Lab Routine Pleural effusion Pleuritis Lymphocytic colitis Pericardial effusion (noninflammatory) Interstitial pulmonary disease (HCC) Expected: 06/22/2024, Expires: 09/21/2024 [facility] Comment on above: Expected: 06/22/2024, Expires: Start: 06-22-2024 End: 06-22-2024 Thoracentesis needle/cath pleura w/imaging THORACENTESIS NEEDLE OR CATHETER ASPIRATION OF THE PLEURAL SPACE W IMAGING GUIDANCE Bronchiolar disease 06/22/2024 10:15 AM EST PULM LAB H23 Start: 06-22-2024 End: 06-22-2024 Patient encounter procedure 06/22/2024 9:00 AM EST Office Visit Pulmonary Medicine [address] [place] [address] Triston Riggs MD [address] [place] [address] NPV Pulmonary Medicine Comment on above: NPV Start: 06-17-2024 Advance Directive Discussion Advance Directive Discussion [facility] Start: 06-17-2024 Medicare Advantage Annual Wellness Visit Medicare Advantage Annual Wellness Visit [facility] Start: 06-12-2024 End: 06-12-2024 Patient encounter procedure 06/12/2024 1:30 PM EST Office [place] [address] [place] [address] [place] [address] [place] [address] Follow-up Jose Antonio Hopper MD Comment on above: Follow-up Start: 06-01-2024 End: 06-01-2024 Patient encounter procedure 06/01/2024 12:30 PM EST Office Visit Rheumatology [address] [address] Steffen Mccarty MD [address] [place] [address] 2mo f/u Rheumatology Comment on above: 2mo f/u Start: 05-26-2024 End: 05-26-2024 Patient encounter procedure 05/26/2024 4:30 PM EST Office Visit Gastroenterology [address] [address] Sue Murillo MD [address] [place] [address] Diarrhea Follow Up Gastroenterology Comment on above: Diarrhea Follow Up Start: 05-20-2024 End: 08-19-2024 Basic metabolic 2000 panel - Serum or Plasma BASIC METABOLIC PANEL Lab Routine Recurrent 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 Anasarca Expected: 05/20/2024, Expires: 08/19/2024 CP JOSE ANTONIO HOPPER MD [facility] Work Phone: Comment on above: Expected: 05/20/2024, Expires: Start: 05-19-2024 End: 05-19-2024 Patient encounter procedure 05/19/2024 11:30 AM [place] [address] [place] [address] [place] [address] [place] [address] Follow-up Jose Antonio Hopper MD Comment on above: Follow-up Start: 05-18-2024 End: 08-17-2024 Bacteria identified in Body fluid by Culture BODY FLUID CULTURE AND GRAM STAIN Microbiology Routine Pleural effusion Expected: 05/18/2024, Expires: 08/17/2024 [facility] Comment on above: Expected: 05/18/2024, Expires: Start: 05-18-2024 End: 08-17-2024 CYTOLOGY NON-WEB PRODUCTION DESIGNER [facility] Comment on above: Expected: 05/18/2024, Expires: Start: 05-18-2024 End: 08-17-2024 FATTY ACIDS PROFILE, ESSENTIAL [facility] Work Phone: Comment on above: Expected: 05/18/2024, Expires: Start: 05-18-2024 End: 08-17-2024 FLOW CYTOMETRY FOR LEUKEMIA/LYMPHOMA (FCLL) [facility] Comment on above: Expected: 05/18/2024, Expires: Start: 05-18-2024 End: 08-17-2024 Microorganism identified in Unspecified specimen by Culture AFB CULT + STAIN Microbiology Routine Pleural effusion Expected: 05/18/2024, Expires: 08/17/2024 [facility] Comment on above: Expected: 05/18/2024, Expires: Start: 05-18-2024 End: 05-18-2024 Patient encounter procedure 05/18/2024 10:40 AM EST Office Visit Pulmonary Medicine [address] [place] [address] Louise Cesar MD [address] [place] [address] follow up Pulmonary Medicine Comment on above: follow up Start: 05-13-2024 End: 05-13-2024 Patient encounter procedure 05/13/2024 11:30 AM EST Office Visit [place] [address] [place], [place] [phone] [place] [address] [place] [address] Follow-up Jose Antonio Hopper MD Comment on above: Follow-up Start: 04-28-2024 End: 04-28-2024 Patient encounter procedure [facility] Comment on above: Diarrhea, unspecified type [R19.7] Start: 04-20-2024 End: 04-20-2024 Anesthesia consultation 04/20/2024 11:59 PM EST Anesthesia Event [facility] [address] [place] [phone] Silvino Henley APRN.CRNA [facility] Start: 04-20-2024 End: 04-20-2024 Patient encounter procedure 04/20/2024 12:00 PM EST Office Visit Gastroenterology [address] [address] Sue Murillo MD [address] [place] [address] Diarrhea, unspecified type [R19.7] Gastroenterology Comment on above: Diarrhea, unspecified type [R19.7] Start: 04-13-2024 End: 04-13-2024 Patient encounter procedure 04/13/2024 11:00 AM EDT Office Visit Rheumatology [address] [address] Steffen Mccarty MD [address] [place] [address] J90 (ICD-10-CM) - Pleural effusion Rheumatology Comment on above: J90 (ICD-10-CM) - Pleural effusion Start: 03-30-2024 End: 03-30-2024 Patient encounter procedure 03/30/2024 9:30 AM EDT Office Visit Rheumatology [address] [address] Steffen Mccarty MD [address] [place] [address] J90 (ICD-10-CM) - Pleural effusion Rheumatology Comment on above: J90 (ICD-10-CM) - Pleural effusion Start: 03-26-2024 End: 03-26-2024 Patient encounter procedure 03/26/2024 2:30 PM EDT Appointment Cardiovascular Testing [address] [place] [address] Pericarditis, unspecified chronicity, unspecified type [I31.9] Cardiovascular Testing Comment on above: Pericarditis, unspecified chronicity, un specified type [I31.9] Start: 03-17-2024 End: 03-17-2024 Patient encounter procedure 03/17/2024 4:30 PM EDT Appointment Radiology [address] [place] [address] Interstitial pulmonary disease (HCC) [J84.9] Radiology Comment on above: Interstitial pulmonary disease (HCC) [J8 4.9] Start: 03-17-2024 End: 03-17-2024 Patient encounter procedure Thoracic Surgery Comment on above: Pleural effusion Start: 03-17-2024 End: 03-17-2024 ambulatory 03/17/2024 1:15 PM EDT Procedure Pulmonary Lab [address] [facility] [address] [place], [place] [id number] Pleural effusion [J90]; Interstitial pulmonary disease (HCC) [J84.9] Pulmonary Lab Comment on above: Pleural effusion [J90]; Interstitial pul monary disease (HCC) [J84.9] Start: 03-17-2024 End: 03-17-2024 Patient encounter procedure 03/17/2024 10:20 AM EDT Office Visit PULMONOLOGY [facility] [address] [place] [address] Louise Cesar MD [address] [place] [address] NEW Chronic cough pt + CXR + PFT'S PULMONOLOGY [facility] Comment on above: NEW Chronic cough pt + CXR + PFT'S Start: 03-17-2024 End: 03-17-2024 Patient encounter procedure 03/17/2024 9:15 AM EDT Appointment XRAY / RADIOLOGY [facility] [address] [place] [address] Chronic bronchitis, unspecified chronic bronchitis type (HCC) [J42 XRAY / RADIOLOGY [facility] Comment on above: Chronic bronchitis, unspecified chronic bronchitis type (HCC) [J42 Start: 03-17-2024 End: 03-17-2024 ambulatory PULMONOLOGY LAB [facility] Comment on above: Chronic cough [R05.3] Pleural effusion [J9 0]; Interstitial pulmonary disease (HCC) [J84.9] Start: 02-16-2024 Covid-19 Vaccine () Covid-19 Vaccine () [facility] Start: 02-16-2024 Covid-19 Vaccine () Covid-19 Vaccine () [facility] Start: 02-16-2024 Covid-19 Vaccine ( season) Covid-19 Vaccine () [facility] Start: 02-16-2024 Influenza vaccination [facility] Start: 02-12-2024 End: 05-13-2024 Basic metabolic 2000 panel - Serum or Plasma BASIC METABOLIC PANEL Lab Routine Primary hypertension Expected: 02/12/2024, Expires: 05/13/2024 [facility] Comment on above: Expected: 02/12/2024, [...] Primary hypertension Hypomagnesemia Expected: 02/12/2024, Expires: 05/13/2024 [facility] Comment on above: Expected: 02/12/2024, Expires: Start: 02-12-2024 End: 02-12-2024 Patient encounter procedure 02/12/2024 1:30 PM [place] [address] [address] [address] [place] [address] [address] follow up from angel Dial MD Comment on above: follow up from angel Start: 02-12-2024 End: 02-12-2024 Patient encounter procedure 02/12/2024 10:45 AM [place] [address] [place] [address] [place] [address] [place] [address] Follow-up Jose Antonio Hopper MD Comment on [...] Office [place] [address] [place] [address] [place] [address] [facility] [address] New Patient Jose Antonio Hopper MD Comment [...] 12-03-2023 Patient encounter procedure [facility] [place] [facility] Comment on above: Pleural effusion Start: 12-01-2023 End: 12-23-2024 XR Chest PA and Lateral XR CHEST 2V FRONTAL/LAT Radiology Routine Surgery follow-up Expected: 12/01/2023, Expires: 12/23/2024 [facility] Work Phone: Comment on above: Expected: 12/01/2023, Expires: Start: 11-20-2023 End: 11-20-2023 Admission to same day surgery center 11/20/2023 5:43 PM EDT - 11/20/2023 9:17 PM EDT Surgery Admitting [address] [place] [address] Ronaldo Flood MD, PhD [address] [facility] [place] [address] THORACOSCOPY WITH PLEURAL ABRASION Admitting Comment on above: THORACOSCOPY WITH PLEURAL ABRASION Start: 11-20-2023 Subsequent hospital visit by physician 11/20/2023 5:43 PM EDT Hospital Encounter Admitting [address] [place] [address] Ronaldo Flood MD, PhD 0[address] [facility] [address] [place] [address] Pleural effusion [J90] Admitting Comment on above: [...] 11/20/2023 3:04 PM EDT Surgery Admitting [address] [place] [address] Ronaldo Flood MD, PhD [address] [place] [address] THORACOSCOPY WITH PLEURAL ABRASION Admitting Comment on above: THORACOSCOPY WITH PLEURAL ABRASION Start: 11-20-2023 Subsequent hospital visit by physician 11/20/2023 11:30 AM EDT Hospital Encounter Admitting [address] [place] [address] Ronaldo Flood MD, PhD [address] [facility] [address] [place] [address] Pleural effusion [J90] Admitting Comment on above: [...] other preprocedural examination Expected: 10/28/2023, Expires: 10/23/2024 [facility] Comment on above: Expected: 10/28/2023, Expires: Start: 10-28-2023 End: 10-23-2024 CBC W Auto Differential panel - Blood COMPLETE BLOOD COUNT AND DIFFERENTIAL Lab STAT Pleural effusion Encounter for other preprocedural examination Expected: 10/28/2023, Expires: 10/23/2024 [facility] Comment on above: Expected: 10/28/2023, Expires: Start: 10-28-2023 End: 10-23-2024 Comprehensive metabolic 2000 panel - Serum or Plasma COMPREHENSIVE METABOLIC PANEL Lab STAT Pleural effusion Encounter for other preprocedural examination Expected: 10/28/2023, Expires: 10/23/2024 [facility] Comment on above: Expected: 10/28/2023, Expires: Start: 10-28-2023 End: 10-23-2024 CONFIRM BLOOD TYPE CONFIRM BLOOD TYPE Blood Bank STAT Pleural effusion Encounter for other preprocedural examination Expected: 10/28/2023, Expires: 10/23/2024 [facility] Comment on above: Expected: 10/28/2023, Expires: Start: 10-28-2023 End: 10-23-2024 ECG COMPLETE ECG COMPLETE ECG STAT Pleural effusion Encounter for other preprocedural examination Expected: 10/28/2023, Expires: 10/23/2024 [facility] Comment on above: Expected: 10/28/2023, Expires: Start: 10-28-2023 End: 11-22-2024 LUNG DIFFUSION CAPACITY (DLCO) LUNG DIFFUSION CAPACITY (DLCO) PFT STAT Pleural effusion Encounter for other preprocedural examination Expected: 10/28/2023, Expires: 11/22/2024 [facility] Comment on above: Expected: 10/28/2023, Expires: Start: 10-28-2023 End: 11-22-2024 NM Heart Perfusion W multiple states of exercise NM CARDIAC PERF STRESS/EXERCISE Radiology STAT Pleural effusion Encounter for other preprocedural examination Expected: 10/28/2023, Expires: 11/22/2024 [facility] Comment on above: Expected: 10/28/2023, Expires: Start: 10-28-2023 End: 10-23-2024 PT panel - Platelet poor plasma by Coagulation assay PROTHROMBIN TIME Lab STAT Pleural effusion Encounter for other preprocedural examination Expected: 10/28/2023, Expires: 10/23/2024 [facility] Comment on above: Expected: 10/28/2023, Expires: Start: 10-28-2023 End: 11-22-2024 SPIROMETRY WITH DILATOR IF OBSTRUCTED SPIROMETRY WITH DILATOR IF OBSTRUCTED PFT STAT Pleural effusion Encounter for other preprocedural examination Expected: 10/28/2023, Expires: 11/22/2024 [facility] Work Phone: Comment on above: Expected: 10/28/2023, Expires: Start: 10-28-2023 End: 01-27-2024 STAPHYLOCOCCUS AUREUS & MRSA SCREEN, PCR, NASAL STAPHYLOCOCCUS AUREUS & MRSA SCREEN, PCR, NASAL Lab STAT Pleural effusion Encounter for other preprocedural examination Expected: 10/28/2023, Expires: 01/27/2024 [facility] Comment on above: Expected: 10/28/2023, Expires: Start: 10-28-2023 End: 10-23-2024 TYPE AND SCREEN,30 DAY TYPE AND SCREEN,30 DAY Blood Bank STAT Pleural effusion Encounter for other preprocedural examination Expected: 10/28/2023, Expires: 10/23/2024 [facility] Comment on above: Expected: 10/28/2023, Expires: Start: 10-28-2023 End: 10-23-2024 URINALYSIS, DIPSTICK ONLY URINALYSIS, DIPSTICK ONLY Lab STAT Pleural effusion Encounter for other preprocedural examination Expected: 10/28/2023, Expires: 10/23/2024 [facility] Comment on above: Expected: 10/28/2023, Expires: Start: 10-28-2023 End: 11-22-2024 XR Chest PA and Lateral XR CHEST 2V FRONTAL/LAT Radiology STAT Pleural effusion Encounter for other preprocedural examination Expected: 10/28/2023, Expires: 11/22/2024 [facility] Comment on above: Expected: 10/28/2023, Expires: Start: 10-24-2023 End: 10-24-2023 Patient encounter procedure 10/24/2023 12:00 PM EDT Office Visit Thoracic Clinic [address] [place] [address] Ronaldo Flood MD, PhD [address] [facility] [address] [address] [place] [address] pleural effusion Thoracic Clinic Comment on above: pleural effusion Start: 10-01-2023 Acid Fast Culture Acid Fast Culture [facility] Start: 09-04-2023 Acid Fast Culture Acid Fast Culture [facility] Start: 06-17-2023 Advance Directive Discussion Advance Directive Discussion [facility] Start: 06-17-2023 Behavioral Health Screening Behavioral Health Screening [facility] Start: 02-15-2023 COVID-19 Vaccine ( season) COVID-19 Vaccine ( season) [facility] Start: 02-15-2023 Covid-19 Vaccine ( season) Covid-19 Vaccine ( season) [facility] Start: 02-15-2023 Influenza vaccination [facility] Start: 02-11-2023 End: 02-11-2023 Patient encounter procedure 02/11/2023 1:15 PM EDT Office Visit [facility] [address] [place] [address] Margie Edouard DO [address] [place] [address] [facility] Start: 01-14-2023 End: 01-14-2023 Patient encounter procedure 01/14/2023 1:15 PM EDT Office Visit [facility] [address] [place] [address] Margie Edouard DO [address] [place] [address] [facility] Start: 11-19-2022 End: 11-19-2022 Patient encounter procedure 11/19/2022 1:30 PM EDT Office Visit [facility] [address] [place] [address] Stefanomarleny Margie Fernandez, DO [address] [place] [address] [facility] Start: 10-08-2022 End: 10-08-2022 Patient encounter procedure 10/08/2022 Office Visit Orthopedic Surgery Margie Edouard, DO [address] [place] [address] [facility] Start: 02-15-2022 [...] Orthopedic Surgery Nena Huff, DO [address] [place] [address] [phone] [facility] Start: 02-16-2020 Influenza vaccination given Sequential Influenza Vaccine (#1) [facility] Start: 06-30-2019 Ambulatory 06/30/2019 Office Visit Orthopedic Surgery Karthik Calloway MD [address] [place] [address] [phone] [facility] Start: 02-15-2019 Influenza vaccination given SEQUENTIAL INFLUENZA VACCINE (#1) [facility] Start: 10-25-2018 Administration of herpes zoster vaccine Zoster Vaccines (2 of 2) [facility] Start: 10-25-2018 Shingrix Vaccine (2 of 2) Shingrix Vaccine (2 of 2) [facility] Start: 08-31-2018 Urine microalbumin profile DTaP,Tdap,Td Vaccine (1 - Tdap) [facility] Start: 07-30-2017 Ambulatory 07/30/2017 Office Visit Orthopedic Surgery Karthik Calloway MD [address] [place] [address] [phone] [facility] Start: 02-15-2017 [...] [facility] Work Phone: Start: 2011 Hepatitis B Vaccine (1 of 3 - Risk 3-dose series) Hepatitis B Vaccine (1 of 3 - Risk 3-dose series) [facility] Start: 2011 RSV Vaccine (1 - 1-dose 60+ series) RSV Vaccine (1 - 1-dose 60+ series) [facility] Start: 2011 RSV Vaccine (1 - Risk 60-74 years 1-dose series) RSV Vaccine (1 - Risk 60-74 years 1-dose series) [facility] Start: 2011 Zoster vacc, sc ZOSTER VACCINE [facility] Work Phone: Start: 2001 Screening for malignant neoplasm of colon [facility] Start: 1996 Diabetes Screening Diabetes Screening [facility] Start: 1996 Screening for malignant neoplasm of colon [facility] Start: 1986 Lipid panel Lipid Screening [facility] Start: 1970 Hepatitis A Vaccine (1 of 2 - Risk 2-dose series) Hepatitis A Vaccine (1 of 2 - Risk 2-dose series) [facility] Start: 1970 Urine microalbumin profile DTaP,Tdap,Td Vaccine (1 - Tdap) [facility] Start: 1969 Annual PCP Team Chronic Disease Visit Annual PCP Team Chronic Disease Visit [facility] Start: 1969 Anxiety Screening Anxiety Screening [facility] Start: 1969 BP Controlled (<130/80) BP Controlled (<130/80) [facility] Start: 1969 Depression Screening Depression Screening [facility] Start: 1969 Hepatitis C antibody, confirmatory test Hepatitis C Screening [facility] Start: 1969 Hepatitis C screening Hepatitis C Screening [facility] Start: 1967 COVID-19 Vaccine (1 of 2) COVID-19 Vaccine (1 of 2) [facility] Start: 1963 Adolescent depression screening assessment Depression Screening (PHQ9) [facility] Start: 1963 Depression screening using PHQ-9 (Patient Health Questionnaire 9) score [facility] Start: 1956 COVID-19 Vaccine (1) COVID-19 Vaccine (1) [facility] Start: 1954 History and physical examination, annual for health maintenance Wellness Visit [facility] Start: 1954 Medicare Wellness Visit Medicare Wellness Visit [facility] Start: 1951 [...] FLUID Lab Routine Pleural effusion Ordered: 07/20/2024 [facility] Comment on above: Ordered: 07/20/2024 Albumin [Mass/volume ] in Body fluid ALBUMIN, BODY FLUID Lab Routine Pleural effusion Ordered: 07/20/2024 [facility] Comment on above: Ordered: 07/20/2024 BODY FLUID CELL COUNT BODY FLUID CELL COUNT Lab Routine Pleural effusion Ordered: 07/20/2024 [facility] Comment on above: Ordered: 07/20/2024 Comprehensive metabo lic 2000 panel - Serum or Plasma [facility] CT Chest W contrast IV [facility] End: 04-16-2025 CT Chest W contrast IV CT CHEST W IVCON Radiology Routine Interstitial pulmonary disease (HCC) 1 Occurrences starting 03/17/2024 until 04/16/2025 [facility] Work Phone: Comment on above: 1 Occurrences starting 03/17/2024 until 04/16/2025 CT Chest W contrast IV CT CHEST W IVCON Radiology Routine Interstitial pulmonary disease (HCC) 03/17/2024 4:02 PM EDT [facility] End: 06-17-2025 CT Chest WO contrast CT CHEST WO IVCON Radiology Routine Pleural effusion Lung nodule 1 Occurrences starting 05/18/2024 until 06/17/2025 [facility] Comment on above: 1 Occurrences starting 05/18/2024 until 06/17/2025 End: 11-20-2025 CT Small bowel W contrast PO and W contrast IV CT ENTEROGRAPHY W IVCON Radiology Routine Other ascites Generalized abdominal pain 1 Occurrences starting 10/21/2024 until 11/20/2025 [facility] Comment on above: 1 Occurrences starting 10/21/2024 until 11/20/2025 End: 03-17-2025 Echocardiography ECHO Cardiology Routine Pericarditis, unspecified chronicity, unspecified type 1 Occurrences starting 03/17/2024 until 03/17/2025 [facility] Comment on above: 1 Occurrences starting 03/17/2024 until 03/17/2025 End: 04-20-2025 EGD DIAGNOSTIC EGD DIAGNOSTIC Endoscopy Routine Diarrhea, unspecified type 1 Occurrences starting 04/20/2024 until 04/20/2025 [facility] Work Phone: Comment on above: 1 Occurrences starting 04/20/2024 until 04/20/2025 End: 08-24-2025 EGD DIAGNOSTIC EGD DIAGNOSTIC Endoscopy Routine Esophageal dysphagia 1 Occurrences starting 08/24/2024 until 08/24/2025 [facility] Comment on above: 1 Occurrences starting 08/24/2024 until 08/24/2025 FAT, FECAL QUAL FAT, FECAL QUAL Lab Routine Other ascites Generalized abdominal pain Ordered: 10/21/2024 [facility] Work Phone: Comment on above: Ordered: 10/21/2024 End: 04-20-2025 Flexible sigmoidoscopy study COLONOSCOPY DIAGNOSTIC Endoscopy Routine Diarrhea, unspecified type 1 Occurrences starting 04/20/2024 until 04/20/2025 [facility] Comment on above: 1 Occurrences starting 04/20/2024 until 04/20/2025 FLOW CYTOMETRY FOR LEUKEMIA/LYMPHOMA (FCLL) PERFORMABLE FLOW CYTOMETRY FOR LEUKEMIA/LYMPHOMA (FCLL) PERFORMABLE Lab Routine Pleural effusion 05/18/2024 12:52 PM EST [facility] FLOW CYTOMETRY FOR LEUKEMIA/LYMPHOMA (FCLL) PERFORMABLE FLOW CYTOMETRY FOR LEUKEMIA/LYMPHOMA (FCLL) PERFORMABLE Lab Routine Pleural effusion Pleuritis Lymphocytic colitis Pericardial effusion (noninflammatory) Interstitial pulmonary disease (HCC) Ordered: 06/22/2024 [facility] Comment on above: Ordered: 06/22/2024 Lactate dehydrogenas e [Enzymatic activity/volume] in Body fluid LACTATE DEHYDROGENASE, BODY FLUID Lab Routine Pleural effusion Ordered: 07/20/2024 [facility] Work Phone: Comment on above: Ordered: 07/20/2024 Lactate dehydrogenas e [Enzymatic activity/volume] in Body fluid LACTATE DEHYDROGENASE, BODY FLUID Lab Routine Pleural effusion Ordered: 07/20/2024 [facility] Comment on above: Ordered: 07/20/2024 End: 12-13-2025 Liver stiffness by US.transient elastography US ELASTOGRAPHY LIVER Radiology Routine Hepatomegaly 1 Occurrences starting 11/13/2024 until 12/13/2025 [facility] Comment on above: 1 Occurrences starting 11/13/2024 until 12/13/2025 Liver stiffness by US.transient elastography US ELASTOGRAPHY LIVER Radiology Routine Hepatomegaly 11/23/2024 3:05 PM EDT [facility] MANUAL DIFFERENTIAL, BODY FLUID MANUAL DIFFERENTIAL, BODY FLUID Lab Routine Pleural effusion 05/18/2024 12:52 PM EST [facility] End: 02-04-2025 NITRIC OXIDE, EXHALED NITRIC OXIDE, EXHALED PFT Routine Chronic cough Pleural effusion 1 Occurrences starting 01/06/2024 until 02/04/2025 [facility] Work Phone: Comment on above: 1 Occurrences starting 01/06/2024 until 02/04/2025 pH of Body fluid PH BODY FLUID L ab Routine Pleural effusion Ordered: 07/20/2024 [facility] Comment on above: Ordered: 07/20/2024 PH PLEURAL FLUID (FO R USE OUTSIDE OF [facility]) PH PLEURAL FLUID (FOR USE OUTSIDE OF [facility]) Lab Routine Pleural effusion Ordered: 07/20/2024 [facility] Comment on above: Ordered: 07/20/2024 Protein [Mass/volume ] in Body fluid PROTEIN, BODY FLUID Lab Routine Pleural effusion Ordered: 07/20/2024 [facility] Comment on above: Ordered: 07/20/2024 Protein [Mass/volume ] in Body fluid PROTEIN, BODY FLUID Lab Routine Pleural effusion Ordered: 07/20/2024 [facility] Comment on above: Ordered: 07/20/2024 Protein/Creatinine [ Mass Ratio] in Urine PROTEIN / CREATININE RATIO Lab Routine Elevated serum creatinine 10/15/2024 10:09 AM EDT [facility] Work Phone: RF Guidance for transjugular biopsy of Liver-- W contrast IV IR TRANSJUGULAR LIVER BX W/PRESS Radiology Routine Elevated alkaline phosphatase level Ordered: 12/22/2024 [facility] Work Phone: Comment on above: Ordered: 12/22/2024 End: 11-26-2024 SIX MINUTE WALK SIX MINUTE WALK PFT Routine Pleural effusion Encounter for other preprocedural examination 1 Occurrences starting 10/28/2023 until 11/26/2024 [facility] Comment on above: 1 Occurrences starting 10/28/2023 until 11/26/2024 End: 02-04-2025 SPIROMETRY WITH DILATOR IF OBSTRUCTED SPIROMETRY WITH DILATOR IF OBSTRUCTED PFT Routine Chronic cough Pleural effusion 1 Occurrences starting 01/06/2024 until 02/04/2025 [facility] Comment on above: 1 Occurrences starting 01/06/2024 until 02/04/2025 SPIROMETRY WITH DILA TOR IF OBSTRUCTED SPIROMETRY WITH DILATOR IF OBSTRUCTED PFT Routine Chronic cough Pleural effusion 03/17/2024 8:07 AM EDT [facility] Work Phone: SURGICAL PATHOLOGY [facility] Work Phone: Comment on above: Release Upon Ordering for 1 Occurrences starting 04/28/2024, 1 completed Tissue Pathology bio psy report [facility] Work Phone: Comment on above: Release Upon Ordering for 1 Occurrences starting 09/25/2024, 1 completed UA DIP, URINE (POC) UA DIP, URIN E (POC) Lab Routine Screening for genitourinary condition 1 Occurrences starting 10/15/2024 [facility] Work Phone: Comment on above: 1 Occurrences starting 10/15/2024 End: 11-14-2025 US Abdomen RUQ US ABD RIGHT UPPER QUADRANT Radiology Routine Elevated alkaline phosphatase level 1 Occurrences starting 10/15/2024 until 11/14/2025 [facility] Work Phone: Comment on above: 1 Occurrences starting 10/15/2024 until 11/14/2025 US Abdomen RUQ US ABD RIGHT UPP ER QUADRANT Radiology Routine Elevated alkaline phosphatase level 10/23/2024 2:18 PM EDT [facility] Work Phone: End: 12-13-2025 US Abdomen RUQ US ABD RIGHT UPPER QUADRANT Radiology Routine Hepatomegaly 1 Occurrences starting 11/13/2024 until 12/13/2025 [facility] Comment on above: 1 Occurrences starting 11/13/2024 until 12/13/2025 US Abdomen RUQ US ABD RIGHT UPP ER QUADRANT Radiology Routine Hepatomegaly 11/23/2024 3:05 PM EDT [facility] Work Phone: US Chest limited US CHEST (POC) H23 USE ONLY Imaging Diagnostic Routine Pleural effusion Pleuritis Lymphocytic colitis Pericardial effusion (noninflammatory) Interstitial pulmonary disease (HCC) Ordered: 06/22/2024 [facility] Work Phone: Comment on above: Ordered: 06/22/2024 US Heart Transthoracic [facility] End: 11-20-2025 US Lower extremity artery - bilateral PVR LEG [facility] Vascular Lab Routine Extremity cyanosis 1 Occurrences starting 11/20/2024 until 11/20/2025 [facility] Comment on above: 1 Occurrences starting 11/20/2024 until 11/20/2025 End: 11-20-2025 US Lower extremity veins - bilateral US LEG VEIN DVT [facility] Vascular Lab Routine Extremity cyanosis 1 Occurrences starting 11/20/2024 until 11/20/2025 [facility] Comment on above: 1 Occurrences starting 11/20/2024 until 11/20/2025 End: 11-20-2025 US Vein - bilateral US VENOUS INCOMPETENCY [facility] Vascular Lab Routine Extremity cyanosis 1 Occurrences starting 11/20/2024 until 11/20/2025 [facility] Work Phone: Comment on above: 1 Occurrences starting 11/20/2024 until 11/20/2025 End: 03-19-2026 US.doppler Abdominal vessels US ABD LIVER VASCULAR Radiology Routine Other ascites 1 Occurrences starting 02/17/2025 until 03/19/2026 [facility] Work Phone: Comment on above: 1 Occurrences starting 02/17/2025 until 03/19/2026 End: 03-19-2026 US.doppler Unspecified body region US DOPPLER COMPLETE Radiology Routine Other ascites 1 Occurrences starting 02/17/2025 until 03/19/2026 [facility] Comment on above: 1 Occurrences starting 02/17/2025 until 03/19/2026 End: 12-28-2024 XR Chest PA and Lateral XR CHEST 2V FRONTAL/LAT Radiology Routine Follow-up exam 1 Occurrences starting 11/29/2023 until 12/28/2024 [facility] Work Phone: Comment on above: 1 Occurrences starting 11/29/2023 until 12/28/2024 XR Chest PA and Lateral XR CHEST 2V FRONTAL/LAT Radiology Routine Surgery follow-up 11/29/2023 2:19 PM EDT [facility] Work Phone: XR Chest PA and Lateral XR CHEST 2V FRONTAL/LAT Radiology Routine Follow-up exam 12/03/2023 12:25 PM EDT [facility] Work Phone: XR Chest PA and Lateral XR CHEST 2V FRONTAL/LAT Radiology Routine Pleural effusion 12/13/2023 1:18 PM EDT [facility] Work Phone: XR Chest PA and Lateral XR CHEST 2V FRONTAL/LAT Radiology Routine Pleural effusion 12/20/2023 1:13 PM EDT [facility] Work Phone: End: 02-04-2025 XR Chest PA and Lateral XR CHEST 2V FRONTAL/LAT Radiology Routine Pleural effusion 1 Occurrences starting 01/06/2024 until 02/04/2025 [facility] Work Phone: Comment on above: 1 Occurrences starting 01/06/2024 until 02/04/2025 XR Chest PA and Lateral XR CHEST 2V FRONTAL/LAT Radiology Routine Recurrent 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 01/06/2024 1:09 PM EDT [facility] Work Phone: End: 03-05-2025 XR Chest PA and Lateral XR CHEST 2V FRONTAL/LAT Radiology Routine Pleural effusion 1 Occurrences starting 02/04/2024 until 03/05/2025 [facility] Work Phone: Comment on above: 1 Occurrences starting 02/04/2024 until 03/05/2025 XR Chest PA and Lateral XR CHEST 2V FRONTAL/LAT Radiology Routine Chronic bronchitis, unspecified chronic bronchitis type (HCC) 03/17/2024 8:41 AM EDT [facility] Work Phone: End: 11-26-2025 XR Chest PA and Lateral XR CHEST 2V FRONTAL/LAT Radiology Routine Pleural effusion 1 Occurrences starting 10/28/2024 until 11/26/2025 [facility] Work Phone: Comment on above: 1 Occurrences starting 10/28/2024 until 11/26/2025 Immunizations Immunization Date Immunization Notes Care Provider Laurie [facility] 05-27-2024 influenza, high dose seasonal, preservative-free Jose Antonio Hopper MD Work Phone: [facility] 05-27-2024 influenza, seasonal, injectable Jose Antonio Hopper MD Work Phone: [facility] 05-27-2024 respiratory syncytia l virus (RSV) vaccine, adjuvanted (AREXVY) Jose Antonio Hopper MD Work Phone: [facility] 05-27-2024 tetanus toxoid, redu ariel diphtheria toxoid, and acellular pertussis vaccine, adsorbed Jose Antonio Hopper MD Work Phone: [facility] 05-27-2024 influenza virus vaccine, unspecified formulation Jose Antonio Hopper MD Work Phone: [facility] 05-10-2021 COVID-19 mRNA, Comirnaty (Pfizer) [facility] 09-13-2020 COVID-19 original vaccine, age 12+ yr, monovalent (PFIZER-BIONTECH - PURPLE TOP) Jose Antoino Hopper MD Work Phone: [facility] 09-12-2020 COVID-19 mRNA, Comirnaty (Pfizer) DO [facility] Work Phone: [facility] 08-22-2020 COVID-19 original vaccine, age 12+ yr, monovalent (PFIZER-BIONTECH - PURPLE TOP) Jose Antonio Hopper MD Work Phone: [facility] 08-15-2020 COVID-19 mRNA, Comirnaty (Pfizer) DO Sennari Work Phone: [facility] 05-09-2020 influenza virus vaccine, split virus (incl. purified surface antigen) Yuli Mariscal Other [facility] Other 05-09-2020 influenza virus vaccine, unspecified formulation DO Sennari Work Phone: [facility] 05-09-2020 Seasonal trivalent influenza vaccine, adjuvanted, preservative free Jose Antonio Hopper MD Work Phone: [facility] 08-30-2018 tetanus and diphther ia toxoids, adsorbed, preservative free, for adult use (5 Lf of tetanus toxoid and 2 Lf of diphtheria toxoid) Yuli Loida Other [facility] 08-30-2018 zoster vaccine recombinant Jose Antonio Hopper MD Work Phone: [facility] 06-04-2018 tetanus and diphther ia toxoids, adsorbed, preservative free, for adult use (5 Lf of tetanus toxoid and 2 Lf of diphtheria toxoid) Yuli Mariscal Other [facility] 02-03-2018 pneumococcal polysaccharide vaccine, 23 valent Yuli Mariscal Other [facility] 11-26-2016 pneumococcal conjuga te vaccine, 13 valent Yuli Mariscal Other [facility] Payers Date Payer Category Payer Self-pay [id number] 2023 Medicare (Managed Care) [employer] [place] DICARE [facility]ICAL [facility] Address: [facility] [id number] [place] [address] [id number] 2021 Medicaid [employer] MEDICARE A DVANTAGE [id number] 2016 Medicare [employer] MANAGED [place] AETNA MEDICARE PLAN (PPO) [id number] 2016-Present [id number] 2016 Medicare [employer] [place] AETNA MEDICARE PLAN (PPO) [id number] 2016-Present [id number] 2016 Medicare [id number]. [id number] 2016 Medicare PPO [employer] MEDICARE P MARIANO (PPO) [id number] 1959 Medicare [id number] 1959 Self-pay [id number] 1950 Unknown [id number] 2.16840.1.216924.3.579.2. 593 1951 Unknown [id number] 2.16840.1.793627.3.579.2. 903 1951 Unknown [id number] 2.16.840.1.779169.3.579.2. 903 1951 Unknown [id number] 2.16840.1.111096.3.579.2. 903 1951 Unknown [id number] 2.16.840.1.193893.3.579.2. 903 1951 Unknown [id number] 2.16.840.1.524365.3.579.2. 903 1951 Unknown [id number] 2.16.840.1.925772.3.579.2. 903 1951 Unknown [id number] 2.16.840.1.622170.3.579.2. 90 1951 Unknown [id number] 2.16.840.1.105862.3.579.2. 90 1951 Unknown [id number] 2.16.840.1.743957.3.579.2. 90 1951 Unknown [id number] 2.16.840.1.612474.3.579.2. 90 1951 Unknown [id number] 2.16.840.1.718629.3.579.2. 125 1951 Unknown [id number] 2.16.840.1.764809.3.579.2. 125 1951 Unknown [id number] 2.16.840.1.471295.3.579.2. 1259 1951 Unknown [id number] 2.16.840.1.349703.3.579.2. 125 1951 Unknown [id number] 2.16.840.1.772570.3.579.2. 1259 1951 Unknown [id number] 2.16.840.1.573026.3.579.2. 1259 Medicare [id number] 2.16.840.1.600914.3.249.13 Unknown [id number] 2.16.840.1.046279.3.579.2. 593 Unknown [id number] 2.16.840.1.542942.3.579.2. 531 Unknown [id number] 2.16.840.1.441571.3.579.2. 531 Unknown [id number] 2.16.840.1.729556.3.579.2. 531 Social History Date Type Detail Facility Start: 07-30-2017 End: 01-01-2023 Tobacco smoking status NHIS Never smoker [facility] Work Phone: Start: 1950 Sex Assigned At Not on file O [facility] Work Phone: Start: 07-01-2019 End: 02-25-2025 Alcohol intake Current drinker of alcohol (finding) [facility] Start: 07-20-2020 End: 01-01-2023 Tobacco use and exposure Never used [facility] Start: 08-18-2022 End: 10-08-2022 Exposure to SARS-CoV-2 (event) Not sure [facility] Start: 08-28-2022 End: 03-17-2025 History of Social function [facility] Work Phone: Start: 08-28-2022 End: 03-17-2025 Tobacco use panel [facility] Work Phone: Start: 1950 Sex Assigned At Male F [facility] Start: 12-05-2020 National Score (1-10 0), lower number is lower risk Not on file [facility] Has the [employer], [employer], oil, or water company threatened to shut off services in your home in past 12Mo No [facility] Work Phone: (I/We) worried wheth er (my/our) food would run out before (I/we) got money to buy more. Never true [facility] Start: 01-15-2024 Alcohol Comment socially, no d rink since 06/2023 [facility] Start: 09-11-2024 Sex Male (finding) [facility] Start: 01-07-2025 Gender identity Identifies as male gender (finding) [facility] Medical Equipment Procedure Code Equipment Code Equipment Origin al Text Equipment Identifier Dates Cement 1 X 40 Palacos Bone Single - [id number] Start: 08-23-2014 Stem Short Cemen prerna Persona - [id number] Start: 08-23-2014 Stem Sz F Tib 5d eg Nonpor Lt Persona - [id number] Start: 08-23-2014 Femoral Sz9 Lt N rw Ps Cmt Ccr Persona - [id number] Start: 08-23-2014 Patella 32mm All Poly Persona - [id number] Start: 08-23-2014 Articular Surf E f 6-9 14mm Lt Ps Vivacit-E Persona - [id number] Start: 08-23-2014 Stem Short Cemen prerna Persona - [id number] Start: 06-25-2016 Patella 32mm All Poly Vivacit-E - [id number] Start: 06-25-2016 Articular Surf 1 4mm 6-9ef Rt Cps Ve Persona - [id number] Start: 06-25-2016 Simplex Hv With Gentamicin Cement Start: 06-25-2016 Stem Sz F Tib 5d eg Nonpor Rt Persona - [id number] Start: 06-25-2016 Femoral Sz9 Rt N rw Ps Cmt Ccr Persona - [id number] Start: 06-25-2016 Cement 1 X 40 Palacos Bone Single - [id number] Start: 08-23-2014 Stem Short Cemen prerna Persona - [id number] Start: 08-23-2014 Stem Sz F Tib 5d eg Nonpor Lt Persona - [id number] Start: 08-23-2014 Femoral Sz9 Lt N rw Ps Cmt Ccr Persona - [id number] Start: 08-23-2014 Patella 32mm All Poly Persona - [id number] Start: 08-23-2014 Articular Surf E f 6-9 14mm Lt Ps Vivacit-E Persona - [id number] Start: 08-23-2014 Stem Short Cemen prerna Persona - [id number] Start: 06-25-2016 Patella 32mm All Poly Vivacit-E - [id number] Start: 06-25-2016 Articular Surf 1 4mm 6-9ef Rt Cps Ve Persona - [id number] Start: 06-25-2016 Simplex Hv With Gentamicin Cement Start: 06-25-2016 Stem Sz F Tib 5d eg Nonpor Rt Persona - [id number] Start: 06-25-2016 Femoral Sz9 Rt N rw Ps Cmt Ccr Persona - [id number] Start: 06-25-2016 Cement 1 X 40 Pal[place] Bone Single - [id number] Start: 08-23-2014 Stem Short Cemen prerna Persona - [id number] Start: 08-23-2014 Stem Sz F Tib 5d eg Nonpor Lt Persona - [id number] Start: 08-23-2014 Femoral Sz9 Lt N rw Ps Cmt Ccr Persona - [id number] Start: 08-23-2014 Patella 32mm All Poly Persona - [id number] Start: 08-23-2014 Articular Surf E f 6-9 14mm Lt Ps Vivacit-E Persona - [id number] Start: 08-23-2014 Stem Stephenie graff Persona - [id number] Start: 06-25-2016 Patella 32mm All Poly Vivacit-E - [id number] Start: 06-25-2016 Articular Surf 1 4mm 6-9ef Rt Cps Ve Persona - [id number] Start: 06-25-2016 Simplex Hv With Gentamicin Cement Start: 06-25-2016 Stem Sz F Tib 5d eg Nonpor Rt Persona - [id number] Start: 06-25-2016 Femoral Sz9 Rt N rw Ps [facility] Ccr Persona - [id number] Start: 06-25-2016 Cement 1 X 40 Palacos Bone Single - [id number] Start: 08-23-2014 Stem Stephenie graff Persona - [id number] Start: 08-23-2014 Stem Sz F Tib 5d eg Nonpor Lt Persona - [id number] Start: 08-23-2014 Femoral Sz9 Lt N rw Ps [facility] Ccr Persona - [id number] Start: 08-23-2014 Patella 32mm All Poly Persona - [id number] Start: 08-23-2014 Articular Surf E f 6-9 14mm Lt Ps Vivacit-E Persona - [id number] Start: 08-23-2014 Stem Stephenie graff Persona - [id number] Start: 06-25-2016 Patella 32mm All Poly Vivacit-E - [id number] Start: 06-25-2016 Articular Surf 1 4mm 6-9ef Rt Cps Ve Persona - [id number] Start: 06-25-2016 Simplex Hv With Gentamicin Cement [id number] Start: 06-25-2016 Stem Sz F Tib 5d eg Nonpor Rt Persona - [id number] Start: 06-25-2016 Femoral Sz9 Rt N rw Ps Cmt Ccr Persona - [id number] Start: 06-25-2016 Goals Date Patient Goal Desired Activity /State Personal health goal Functional Status Date Assessment Result Facility 12-26-2023 Are you deaf, or do you have serious difficulty hearing No 12/26/2023 4:30 PM EDT Rojas Cline RN No [facility] 12-26-2023 Are you blind, or do you have serious difficulty seeing, even when wearing glasses No 12/26/2023 4:30 PM EDT Rojas Cline RN No [facility] 12-26-2023 Do you have serious difficulty walking or climbing stairs No 12/26/2023 4:30 PM EDT Rojas Cline RN No [facility] 12-26-2023 Do you have difficul ty dressing or bathing No 12/26/2023 4:30 PM EDT Rojas Cilne RN [facility] 12-26-2023 Because of a physica l, mental, or emotional condition, do you have difficulty doing errands alone such as visiting a physician's office or shopping No 12/26/2023 4:30 PM EDT Rojas Cline RN No [facility] Mental Status Date Assessment Result Facility 12-26-2023 Because of a physica l, mental, or emotional condition, do you have serious difficulty concentrating, remembering, or making decisions No 12/26/2023 4:30 PM EDT Rojas Cline RN No [facility] Clinical Notes 08-28-2022 to 03-29-2025 Jamel Chowdary DPM - 03/25/2025 11:15 AM EDTPatient InstructionsStjuancarlos Chowdary DPM - 03/17/2025 10:15 AM EDTSjeniffer Chowdary DPM - 03/12/2025 8:45 AM EDT Note Date & Type Note Facility 03-29-2025 Note [facility] 03-25-2025 History of Present illness Narrative Images [...] Jamel Chowdary DPM documented in this encounter [facility] 03-25-2025 Instructions Jamel Chowdary DPM - 03/25/2025 11:15 AM EDT As noted documented in this encounter [facility] 03-24-2025 Note [facility] 03-17-2025 History of Present illness Narrative Images [...] Jamel Chowdary DPM documented in this encounter [facility] 03-16-2025 Note [facility] 03-12-2025 History of Present illness Narrative Images [...] and oriented. Pleasant disposition. Independently ambulatory wearing [employer] slip-on footwear. Accompanied by his spouse, Eden. [...] Jamel Chowdary DPM documented in this encounter [facility] 02-25-2025 History of Present illness Narrative [facility] NEPHROLOGY [facility]YPERTENSION [facility] SERVICE DATE: [...] 10 mg by mouth once daily. 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 250 mg-40 mg- 125 unit-3.75mg tab [...] as needed in nephrology clinic SIGNATURE: Zabrina Saurez MD PATIENT NAME: Sav Raymundo DATE: February 25, 2025 TIME: 7:19 AM OFFICE NUMBER: CC: PRIMARY CARE PHYSICIAN: Jose Antonio Hopper MD documented in this encounter [facility] 02-25-2025 Note [facility] 02-19-2025 History of Present illness Narrative Radiology [...] PATIENT PRESENTS WITH AN IMPLANTABLE OR ATTACHED METALSMITH: No RADIOLOGY DEPARTMENT: Ultrasound PERIPHERAL IV DATA: Not applicable SIGNED BY: RT Lolly(R) February 19, 2025 2:26 PM documented in this encounter [facility] 02-19-2025 Note [facility] 01-26-2025 History of Present illness Narrative PROGRESS [...] 10 mg by mouth once daily. calcium bjq-abp-X5-Zn-naval aircrewman tactical helicopter-kian 250 mg-40 mg- 125 unit-3.75mg tab [...] diaphragmatic excursion. Lungs clear to auscultation. Heart: Bowie normal. Precordium quiet. RRR. Normal HS with [...] TIME: 1:39 PM documented in this encounter [facility] 01-26-2025 Evaluation note Diagnosis Metabolic encephalopathy- Primary Stage 3a chronic kidney disease (HCC) Primary hypertension Unspecified essential hypertension Lymphocytic colitis Other and unspecified noninfectious gastroenteritis and colitis Generalized edema Edema Orthostatic hypotension Cramp and spasm Urge incontinence Elevated alkaline phosphatase level Other nonspecific abnormal serum enzyme levels documented in this encounter [facility]07-28-2025 History of Present illness Narrative* Triston Riggs MD - 01/11/2025 9:30 AM EDT Images from the original note were not included. Respiratory Walker Pulmonary Consultation CC: Persistent RIGHT pleural effusion Sav Raymundo is a 74 year old male sent by Dr. STEPHANE Cesar MD and Ronaldo Flood MD, PhD for evaluation of persistent RIGHT pleural effusion. My final recommendations will be communicated to the requesting health care provider by way of the shared medical record for internal providers or lettervia the [employer] for external providers. Assessment and Plan 1. [...] 10 mg by mouth once daily. calcium mwi-ohq-Y4-Zn-naval aircrewman tactical helicopter-kian 250 mg-40 mg- 125 unit-3.75mg tab [...] 0.2 11/12/2024 Abs Neut 7.03 11/12/2024 Abs Childress 0.67 11/12/2024 Abs Eosin <0.03 11/12/2024 Abs [...] 36 % 39 80 (H) 80 (H) Childress%, BF % 6 Macro%, BF 64 - [...] with more than 50% of the total fgjr-up-wulb time of the visit in counseling / coordination of care. Triston Riggs M.D. Staff, Interventional Pulmonology. Pulmonary, Allergy & Critical Care Medicine [facility] documented in this encounterUniversity Hospitals [facility]07-28-[facility] History of Present illness Narrative* Patricia Coello, [...] PATIENT PRESENTS WITH AN IMPLANTABLE OR ATTACHED METALSMITH: No RADIOLOGY DEPARTMENT: General X-ray: Exam(s) Completed: Chest X-Ray PERIPHERAL IV DATA: Not applicable SIGNED BY: RT Cleveland(R) January 08, 2025 12:43 PM documented in this encounterUniversity Hospitals [facility]07-25-2025 [facility] Instructions* Patient Instructions* Marlyn Hooper APRN.CNP - [...] procedure, and you can schedule it at [place] or the main campus by calling [phone]. - Additional blood work has been ordered to rule out autoimmune or viral causes of liver damage. You can complete this at [facility] or another lab location. We discussed your kidney health: - Your creatinine levels, which indicate kidney function, are continuing to rise. I recommend seeing a ice cream dipper (kidney specialist) to evaluate this further and assess your current use of water pills (torsemide). I have placed a referral for nephrology, and you can schedule an appointment by calling [phone]. Virtual visits may also be an option. We discussed your fluid retention and current medication regimen: - Your fluid retention is being managed with torsemide, but the dosing schedule is complex and may need adjustment. A ice cream dipper can help optimize this to protect your [...] any new concerns, and contact me through [employer] if needed. - I will review the biopsy and blood work results once they are available and contact you with nextsteps. Please let me know if you have any questions or concerns in the meantime. documented in this encounterUniversity Hospitals [facility]07-08-2025 History of Present illness Narrative* Marlyn Hooper APRN.CNP - 12/22/2024 6:00 PM EDT VIRTUAL VISIT PROGRESS NOTE This is a virtual visit using [employer] Zoom Video Visit. It required patient- provider interaction for the medical decision making as documented below. I have communicated my name and active licensure. The patient's identity and physical location wereverified at the time of this visit. Either the patient or their legal senior outside sales representative has been informed of the [...] despite evaluation by rheumatology, pulmonology, gastroenterology, and marine architect, as well as recent vascular testing. The [...] He is not currently followed by a ice cream dipper, but his creatinine has been rising. An [...] 50-60 lbs lost since his hospitalization at [facility] on 12/19/2022 for lower extremity swelling, with [...] 10 mg by mouth once daily. calcium dui-rmu-B3-Zn-naval aircrewman tactical helicopter-kian 250 mg-40 mg- 125 unit-3.75mg tab [...] isnot currently under the care of a ice cream dipper. - Referral to nephrology for further evaluation and management. - Provided patient with scheduling number for nephrology appointment. - Advised patient to monitor kidney function closely. I spent a total of 45 minutes on the date of the service which included preparing to see the patient, geoc-px-mjyl patient care, completing clinical documentation, counseling and educating the patient/family/caregiver, ordering medications, tests, or procedures, and communicating results to the dayan ent/family/caregiver Marlyn Hooper APRN.PRODUCT DEMONSTRATOR documented in this encounterUniversity Hospitals Beachwood [facility] Center07-08-20[facility] History of Present illness Narrative* Jose Antonio [...] 10 mg by mouth once daily. calcium icn-bzk-Y3-Zn-naval aircrewman tactical helicopter-kian 250 mg-40 mg- 125 unit-3.75mg tab [...] diaphragmatic excursion. Lungs clear to auscultation. Heart: Bowie normal. Precordium quiet. RRR. Normal HS with [...] 2024 TIME: 11:34 AM documented in this encounterUniversity Hospitals [facility]06-09-2025 Telephone encounter Note * Telephone Encounter - Jahaira Wood - 11/23/2024 1:48 PM EDT Received missed visit notes 11/20/24 and 11/10/24 records scanned in [facility] Jahaira Wood traffic safety administrator [facility]06-09-2025 Miscellaneous Notes* Telephone Encounter - Jahaira Wood - 11/23/2024 1:48 PM EDT Received missed visit notes 11/20/24 and 5/27/25 records scanned in [employer] Jahaira Wood, traffic safety administrator documented in this encounterUniversity Hospitals Beachwood Medical Center06-09-2025 History of Present illness Narrative* Triston Riggs MD - 11/23/2024 12:00 PM EDT Images from the original note were not included. Respiratory Walker Pulmonary Consultation CC: Persistent RIGHT pleural effusion Sav Raymundo is a 74 year old male sent by Dr. STEPHANE Cesar MD for evaluation of persistent RIGHT pleural effusion. My final recommendations will be communicated to the requesting health care provider by way of the shared medical record for internal providers or letter via the [employer] for external providers. Assessment and [...] He will complete course of oral antibiotics. [place], [place] is home care provider. He continues [...] 10 mg by mouth once daily. calcium vgy-zij-T8-Zn-naval aircrewman tactical helicopter-kian 250 mg-40 mg- 125 unit-3.75mg tab [...] UltraSens C-Reactive Protein <3.1 mg/L 13.2 (H) [facility] Reference Range & Units Most Recent 12/26/23 [...] 1.21 0.95 (L) 0.80 (L) 0.91 (L) Childress% % 7.6 11/12/24 13:30 11.7 12.9 7.3 7.6 Abs Childress <0.87 k/uL 0.67 11/12/24 13:30 0.80 1.03 [...] 36 % 39 80 (H) 80 (H) Childress%, BF % 6 Macro%, BF 64 - [...] with more than 50% of the total lqcy-dg-rncc time of the visit in counseling / coordination of care. Triston Riggs M.D. Staff, Interventional Pulmonology. Pulmonary, Allergy & Critical Care Medicine [facility] documented in this encounterUniversity Hospitals Beachwood [facility] Center06-09-2025 [facility] History of Present illness Narrative* Karsten Lagos, [...] PATIENT PRESENTS WITH AN IMPLANTABLE OR ATTACHED METALSMITH: No RADIOLOGY DEPARTMENT: General X-ray: Exam(s) Completed: Chest X-Ray PERIPHERAL IV DATA: Not applicable SIGNED BY: RT Franca(R) November 23, 2024 12:31 PM documented in this encounterUniversity Hospitals Beachwood Medical Center06-09-2025 NoteS[facility] Note[facility] History of Present illness Narrative* Zac Mendiola MD - 11/20/2024 9:23 AM EDT Images from the original note were not included. Heart, Vascular and Thoracic Walker April Baltazar Department of Cardiovascular Medicine SECTION OF INTERVENTIONAL CARDIOLOGY OUTPATIENT VISIT DATE 11/20/2024 OUTPATIENT VISIT TYPE New PRIMARY CARE PHYSICIAN: Jose Antonio Hopper [address] [place] [address] REFERRING PHYSICIAN: No referring provider defined for this encounter. Recording using [employer] software for draft documentation of the visit was discussed with the patient/authorized senior outside sales representative; all questions welcomed and answered. Patient/authorized senior outside sales representative agreed to proceed HISTORY OF PRESENT [...] 10 mg by mouth once daily. calcium jzb-zmb-A0-Zn-naval aircrewman tactical helicopter-kian 250 mg-40 mg- 125 unit-3.75mg tab [...] of Cardiovascular Medicine Heart, Vascular and Thoracic Walker [facility] Office Office Pager [phone] documented in this encounterUniversity Hospitals Beachwood Medical Center06-05-2025 [facility] History of Present illness Narrative* Triston Riggs MD - 11/19/2024 3:28 PM EDT Images from the original note were not included. Respiratory Walker Pulmonary Consultation CC: Persistent RIGHT pleural effusion Sav Raymundo is a 74 year old male sent by Dr. STEPHANE Cesar MD for evaluation of persistent RIGHT pleural effusion. My final recommendations will be communicated to the requesting health care provider by way of the shared medical record for internal providers or letter via the [employer] for external providers. Assessment and [...] CxR placed He will obtain CxR in [place] as need for perceived recurrence of effusion [...] Catheter not accessed 11/17, 11/18 or today. [facility], [place], [place] is home care provider. He continues [...] 10 mg by mouth once daily. calcium iqj-jfh-C0-Zn-naval aircrewman tactical helicopter-kian 250 mg-40 mg- 125 unit-3.75mg tab [...] UltraSens C-Reactive Protein <3.1 mg/L 13.2 (H) [facility] Reference Range & Units Most Recent 12/26/23 [...] 1.21 0.95 (L) 0.80 (L) 0.91 (L) Childress% % 7.6 11/12/24 13:30 11.7 12.9 7.3 7.6 Abs Childress <0.87 k/uL 0.67 11/12/24 13:30 0.80 1.03 [...] 36 % 39 80 (H) 80 (H) Childress%, BF % 6 Macro%, BF 64 - [...] Pulmonology. Pulmonary, Allergy & Critical Care Medicine [facility] documented in this encounterUniversity Hospitals Beachwood [facility] Center06-05-2025 History of Present illness Narrative* [...] PATIENT PRESENTS WITH AN IMPLANTABLE OR ATTACHED METALSMITH: No RADIOLOGY DEPARTMENT: General X-ray: Exam(s) Completed: Chest X-Ray PERIPHERAL IV DATA: Not applicable SIGNED BY: RT Dimitri(Sandee) November 19, 2024 1:24 PM documented in this encounterUniversity Hospitals Beachwood Medical Center06-05-2025 Note[facility] Telephone encounter Note* Telephone Encounter - Amanda [...] with physician. She can be reached at [phone] She asked if a detailed voicemail can be left if somehow she misses the call [facility]06-03-2025 Miscellaneous Notes* Telephone Encounter - Amanda Brooks - 11/17/2024 [...] with physician. She can be reached at [phone] She asked if a detailed voicemail can be left if somehow she misses the call documented in this encounterUniversity Hospitals Beachwood Medical Center05-30-2025 History of Present illness Narrative* Jose Antonio Hopper MD - 11/13/2024 1:34 PM EDT PROGRESS NOTES Patient Name: Sav Raymundo SERVICE DATE: 11/13/2024 SERVICE TIME: 1:47 PM HPI: Mr. Raymundo is a 74 year old male who presents for Follow Up.[facility] MEDICATIONS: Current [...] 10 mg by mouth once daily. calcium cxe-anl-C6-Zn-naval aircrewman tactical helicopter-kian 250 mg-40 mg- 125 unit-3.75mg tab [...] diaphragmatic excursion. Lungs clear to auscultation. Heart: Bowie normal. Precordium quiet. RRR. Normal HS with [...] 2024 TIME: 1:47 PM documented in this encounterUniversity Hospitals Beachwood Medical Center05-29-2025 NoteS[facility] Miscellaneous Notes* Telephone Encounter - Xiomara Ly APRN.CNP - 11/11/2024 5:20 PM EDT Called pt to discuss symptoms. Advised that given reported rapid weight gain over the last 4-5 days, he should be evaluated in the ED to determine if inpatient management is appropriate for worseningsymptoms. Pt verbalized understanding. Xiomara Ly APRN.CURT documented in this encounterUniversity Hospitals Beachwood Medical Center05-28-2025 Telephone encounter Note * Telephone Encounter - Xiomara Ly APRN.CNP - 11/11/2024 5:20 PM EDT Called pt to discuss symptoms. Advised that given reported rapid weight gain over the last 4-5 days, he should be evaluated in the ED to determine if inpatient management is appropriate for worseningsymptoms. Pt verbalized understanding. Xiomara Ly APRN.CNP [facility] Work Phone: 1(201) 865-708705-21-2025 NoteHNO ID: [id number] Author: CINTIA JOSHI RT(R) Service: Radiology Author [...] PATIENT PRESENTS WITH AN IMPLANTABLE OR ATTACHED METALSMITH: No RADIOLOGY DEPARTMENT: CT; Exam(s) Completed: Enterography PERIPHERAL IV DATA: Not applicable SIGNED BY: RT Cachorro(R) November 04, 2024 1:24 [id number] NoteHNO ID: [id number] Author: DRAGAN LOPEZ CT Service: Radiology Author [...] November 04, 2024 TIME: 2:57 PM PAGER/CONTA[phone] History of Present illness Narrative* Riley Rowley [...] PATIENT PRESENTS WITH AN IMPLANTABLE OR ATTACHED METALSMITH: No RADIOLOGY DEPARTMENT: Ultrasound PERIPHERAL IV DATA: Not applicable SIGNED BY: Riley Rowley RDMS, RVT October 23, 2024 2:13 PM documented in this encounterUniversity Hospitals Beachwood Medical Center05-09-2025 NoteHNO ID: [id number] Author: RILEY ROWLEY RDMS, RVT Service: Radiology Author Type: Barrel Centerer Type: Progress Notes Filed: 10/23/2024 14:13 Note Text: Radiology Service Progress Note PATIENT NAME: Sav LANCEN: [id number] DATE OF SERVICE: October 23, 2024 TIME: [...] PATIENT PRESENTS WITH AN IMPLANTABLE OR ATTACHED METALSMITH: No RADIOLOGY DEPARTMENT: Ultrasound PERIPHERAL IV DATA: Not applicable SIGNED BY: Riley Rowley RDMS, DEYVI October 23, 2024 2:13 [facility] [id number] Telephone encounter Note* Telephone Encounter - Jahaira Wood - 10/23/2024 10:20 AM EDT Received missed visit note from [facility] 10/14/24, record scanned in [employer] Jahaira Wood, traffic safety administrator [facility]05-09-2025 Miscellaneous Notes* Telephone Encounter - Jahaira Wood - 10/23/2024 10:20 AM EDT Received missed visit note from [facility] 10/14/24, record scanned in [employer] Jahaira Wood, traffic safety administrator documented in this encounterUniversity Hospitals Beachwood Medical Center05-07-2025 Telephone encounter Note * Telephone [...] and agreeable to advisement. Xiomara Ly APRN.CNP [facility]05-07-2025 Miscellaneous Notes* Telephone Encounter - [...] advisement. Xiomara Ly APRN.CNP documented in this encounterUniversity Hospitals Beachwood Medical Center05-01-2025 History of Present illness Narrative* Zabrina Suarez MD - 10/15/2024 9:20 AM EDT [facility] NEPHROLOGY [facility]YPERTENSION [facility] SERVICE DATE: [...] 1 tablet by mouth once daily. calcium kdn-cal-B4-Zn-naval aircrewman tactical helicopter-kian 250 mg-40 mg- 125 unit-3.75mg tab [...] PHYSICIAN: Yuli Mariscal DO documented in this encounterUniversity Hospitals Beachwood Medical Center05-01-2025 [facility] Miscellaneous Notes* Telephone Encounter - Xiomara Ly APRN.CNP - 10/14/2024 4:00 PM EDT This concern was discussed and addressed at 10/14/24 appointment. Xiomara Ly APRN.CNP documented in this encounterUniversity Hospitals Beachwood Medical Center04-30-2025 Telephone encounter Note * Telephone Encounter - Xiomara Ly APRN.CNP - 10/14/2024 4:00 PM EDT This concern was discussed and addressed at 10/14/24 appointment. Xiomara Ly APRN.CNP [facility] Phone: [phone] Instructions* Patient Instructions* Xiomara Ly APRN.CNP - [...] pt on sooner follow-up documented in this encounterUniversity Hospitals Beachwood Medical Center04-30-2025 History of Present illness Narrative* [...] 10 mg by mouth once daily. calcium tae-jmh-B6-Zn-naval aircrewman tactical helicopter-kian 250 mg-40 mg- 125 unit-3.75mg tab [...] which included preparing to see the patient, zlvn-mu-ypqb patient care, completing clinical documentation, obtaining and/or reviewing separately obtained history, performing a medically appropriate examination, counseling and educating the pat ient/family/caregiver, and ordering medications, tests, or procedures. Xiomara Ly APRN.CURT 10/15/2024 9:00 AM documented in this encounterUniversity Hospitals Beachwood Medical Center04-30-2025 [facility] History of Present illness Narrative* Triston Riggs MD - 10/14/2024 1:04 PM EDT Images from the original note were not included. Respiratory Walker Pulmonary Consultation CC: Persistent RIGHT pleural effusion Sav Raymundo is a 74 year old male sent by Dr. STEPHANE Cesar MD for evaluation of persistent RIGHT pleural effusion. My final recommendations will be communicated to the requesting health care provider by way of the shared medical record for internal providers or letter via the [employer] for external providers. Assessment and [...] did he have some sense of limitation. [facility], [place], [place] is home care provider. Since he [...] Raymundo is a 71 y/o, from the [facility], here for follow-up for pleural [...] referred for pleurodesis to thoracic surgery in [facility], which he underwent inJune 2023. Though no pleural fluid analysis done, but pleural biopsy showed pleuritis. Post pleurodesis, he continued to have significant drainage, tunneled pleural catheter was placed. He was then hospitalized ( abdominal bloating ) -in [facility], and responded well to diuresis. He has [...] other day) -Rheumatologic assessment done, workup negative, steam conditioner operator has no evidence of any autoimmune disease -Off prednisone for the last 5 months -Off Plaquenil for the past 3 weeks -On diuretics, now on torsemide Interestingly, on further discussion, mostly with steam conditioner operator, we have uncovered that he has been [...] 10 mg by mouth once daily. calcium trw-ebd-B3-Zn-naval aircrewman tactical helicopter-kian 250 mg-40 mg- 125 unit-3.75mg tab [...] 0.1 10/15/2024 Abs Neut 9.45 10/15/2024 Abs Childress 0.81 10/15/2024 Abs Eosin <0.03 10/15/2024 Abs [...] 36 % 39 80 (H) 80 (H) Childress%, BF % 6 Macro%, BF 64 - [...] Pulmonology. Pulmonary, Allergy & Critical Care Medicine [facility] documented in this encounterUniversity Hospitals Beachwood Medical Center04-29-2025 History of Present illness Narrative* [...] PATIENT PRESENTS WITH AN IMPLANTABLE OR ATTACHED METALSMITH: No RADIOLOGY DEPARTMENT: General X-ray: Exam(s) Completed: Chest X-Ray PERIPHERAL IV DATA: Not applicable SIGNED BY: RT Cleveland(R) October 13, 2024 1:12 PM documented in this encounterUniversity Hospitals Beachwood Medical Center04-29-2025 [facility] History of Present illness Narrative* Katerina Contreras [...] agreement. Katerina Contreras PA-C documented in this encounterUniversity Hospitals Beachwood Medical Center04-11-2025 NoteQ3 Patient Name: Sav Raymundo Procedure Date: 09/25/2024 11:14 AM Date of : 1950 Admit Type: Outpatient Age: 74 Gender: Male Note Status: Finalized Attending MD: Shay Dennis , , [id number] Procedure: Upper GI endoscopy Indications: Dysphagia Providers: [...] by the physician, the nurse and the journeyman painter in the pre-procedure area in the endoscopy [...] Integrity. Impression: - Nor (more content not included)...[id number] Nurse Note* Obi Flower LPN - 09/25/2024 [...] MATERIAL: Procedure Discharge Instructions REFERRAL (RECOMMENDATION): None [facility]04-11-2025 Nurse Note* Obi Flower LPN [...] RN In Department: GASTROENTEROLOGY documented in this encounterUniversity Hospitals Beachwood [facility] Center04-11-2025 History and physical note * Shay Dennis MD - 09/25/2024 11:30 AM EDT ENDOSCOPY HISTORY AND PHYSICAL EXAM Sav Raymundo [id number] Subjective HPI: This is a 74 year [...] an EGD with dilation using a 60 Yoruba Keller dilator in April 2024 PAST ANESTHESIA [...] 1 tablet by mouth once daily. calcium qcf-fgy-A1-Zn-naval aircrewman tactical helicopter-kian 250 mg-40 mg- 125 unit-3.75mg tab [...] signed Shay Dennis MD 09/24/2024 4:08 PM [facility]04-11-2025 History and physical note* Shay Dennis MD - 09/25/2024 11:30 AM EDT ENDOSCOPY HISTORY AND PHYSICAL EXAM Sav Raymundo [id number] Subjective HPI: This is a 74 year [...] an EGD with dilation using a 60 Yoruba Keller dilator in April 2024 PAST ANESTHESIA [...] 1 tablet by mouth once daily. calcium pdk-ofr-G4-Zn-naval aircrewman tactical helicopter-kian 250 mg-40 mg- 125 unit-3.75mg tab [...] MD 09/24/2024 4:08 PM documented in this encounterUniversity Hospitals Beachwood Medical Center04-11-2025 Nurse Note* Amrik Mast RN [...] By: Amrik Mast RN In Department: GASTROENTEROLOGY [facility]04-09-2025 Telephone encounter Note* Telephone Encounter - Jahaira Wood - 09/23/2024 11:59 AM EDT Received missed visit notes from [facility] Health Records scanned in [facility] Jahaira Wood traffic safety administrator [facility]04-09-2025 Miscellaneous Notes* Telephone Encounter - Israel Jahaira - 09/23/2024 11:59 AM EDT Received missed visit notes from [facility] Health Records scanned in [facility] Jahairanatalee Todd asst documented in this encounterUniversity Hospitals Beachwood [facility] Center04-04-2025 Nurse Note* Melinda Calderón RN [...] have family/friend present for procedure transport home:Patient/patient senior outside sales representative was told that if they do [...] area. Any barriers to Patient learning: Patient/Patient Hydro Electric Station Operator responded appropriately on phone. Type of instruction given: Verbal by telephone contact. Melinda Calderón, RN [facility]04-04-2025 Nurse Note* Melinda Calderón RN [...] have family/friend present for procedure transport home:Patient/patient senior outside sales representative was told that if they do [...] area. Any barriers to Patient learning: Patient/Patient Hydro Electric Station Operator responded appropriately on phone. Type of instruction given: Verbal by telephone contact. Melinda Calderón RN documented in this encounterUniversity Hospitals Beachwood Medical Center03-31-2025 Telephone encounter Note * Telephone Encounter - Andree Colby RN - 09/14/2024 12:56 PM EDT Left message on EVAN Campos's voicemail after d/w pleaural team. Pleurx is draining as expected. Stomach distention should not be a symptom of pleural drainage and may need to be further evaluated in GI or the ED if symptoms persists. [facility]03-31-2025 Miscellaneous Notes* Telephone Encounter - [...] - 09/14/2024 10:28 AM EDT Beth from [facility] called with an update. They have started draining on daily for pluerx catheter. They have been getting between 170 and 210 daily. Patient had SOB on and denies SOB other days. Stomach is distended Beth can be reached at [phone] documented in this encounterUniversity Hospitals Beachwood [facility] Center03-31-2025 Telephone encounter Note * Telephone Encounter - Amanda Brooks - 09/14/2024 10:28 AM EDT Beth from [facility] called with an update. They have started draining on daily for pluerx catheter. They have been getting between 170 and 210 daily. Patient had SOB on and denies SOB other days. Stomach is distended Beth can be reached at [phone] [facility]03-25-2025 [facility] History of Present illness Narrative* Jose Antonio [...] mouth once daily. 90 tablet 0 calcium dwy-zme-D8-Zn-naval aircrewman tactical helicopter-kian 250 mg-40 mg- 125 unit-3.75mg tab [...] diaphragmatic excursion. Lungs clear to auscultation. Heart: Bowie normal. Precordium quiet. RRR. Normal HS with [...] 2024 TIME: 2:11 PM documented in this encounterUniversity Hospitals Beachwood Medical Center03-21-2025 NoteS[facility] Telephone encounter Note* Telephone Encounter - Benny Johnson - 09/04/2024 10:57 AM EDT 09/04 - Scheduled patient for Thoracentesis at [facility] for 09/08 @ [facility]03-21-2025 Miscellaneous Notes* Telephone Encounter - Benny Johnson - 09/04/2024 10:57 AM EDT 09/04 - Scheduled patient for Thoracentesis at [facility] for 09/08 @ documented in this encounterUniversity Hospitals Beachwood [facility] Center03-19-2025 Telephone encounter Note * Telephone Encounter - Hanane Bonilla APRN.CNP - 09/02/2024 4:13 PM EDT Spoke with [facility] who states they have not had steroid injection yet (updated). She is wondering aboutbest practice to get PleurX to drain and if it is okay to have patient cough during draining. Advised that coughing is okay during draining. Currently draining daily till appointment with Dr. Riggs. All questions answered to satisfaction. Hanane Bonilla APRN.CNP 4:22 PM, 09/02/2024 [facility] Work Phone: 1([phone]) 226-987003-19-2025 Miscellaneous Notes* Telephone Encounter - Hanane Bonilla APRN.CNP - 09/02/2024 4:13 PM EDT Spoke with [facility] who states they have not had [...] from the original note were not included. [facility] Phone Encounter DATE of SERVICE: 09/02/2024 TIME of SERVICE: 3:57 PM Status: Non-urgent, needs attention Service/Provider: Thoracic Surgery Ronaldo Flood M.D. Reason for call: Care Coordination Contact information: Roney Campos Home Care nurse, Resolution: Sent to [employer] Comments: Roney Campos home care nurse, called [...] of Resolution 3:57 PM documented in this encounterUniversity Hospitals Beachwood Medical Center03-19-2025 Telephone encounter Note * Telephone Encounter - Susan Rodas RN - 09/02/2024 3:57 PM EDT Images from the original note were not included. [facility] Phone Encounter DATE of SERVICE: 09/02/2024 TIME of SERVICE: 3:57 PM Status: Non-urgent, needs attention Service/Provider: Thoracic Surgery Ronaldo Flood M.D. Reason for call: Care Coordination Contact information: Roney Campos Home Care nurse, Resolution: Sent to [facility] Comments: Beth [facility] home care nurse, called the [facility] post-discharge [...] Resolution: 09/02/2024 Time of Resolution 3:57 PM [facility]2025 History of Present illness Narrative* [...] limited to risks of scarring, darker or lab assistant pigmentary changes, recurrence, incomplete removal and infection. [...] both legs Left Lower Leg - Anterior Hildebran scaly plaques in areas of edema, mild, [...] Next Visit: 1 year documented in this encounterCooper County Memorial [id number] Telephone encounter Note* Telephone Encounter - Britney Hsu RN - 08/26/2024 4:27 PM EDT Patient spouse (ayaka) returned call. Verified patient name and . Advised potassium levels were low and elevated kidney function. To please follow up with PCP and Dr. Hopper. verbalized understanding and agreed, Will follow up as needed. Britney Shen RN [facility]03-12-2025 Miscellaneous Notes* Telephone Encounter - [...] Hopper for further management documented in this encounterUniversity Hospitals Beachwood Medical Center03-12-2025 Telephone encounter Note * Telephone [...] follow up as needed. Britney Shen RN [facility]03-12-2025 Progress note* Result Encounter Note - Sue Murillo MD - 08/26/2024 12:41 PM EDT Please call patient and let him know that his potassium levels are down with elevated kidney function test. He is already on potassium supplements. Needs to touch base with his PCP and Dr Hopper for further management [facility] Work Phone: 1(546) 236-283003-10-2025 History of Present illness Narrative* Sue Murillo MD - 08/24/2024 11:00 AM EDT Follow Up Visit SUBJECTIVE 74 year old male with lymphocytic colitis here for follow-up. Last seen 05/26/2024. Changes and test results since last visit: He is off of budesonide since a month Coughing, vomiting and swallowing issues. Started on Lost about 11 lbs weight loss. 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 90 tablet 0 calcium rpw-peo-O5-Zn-naval aircrewman tactical helicopter-kian 250 mg-40 mg- 125 unit-3.75mg tab [...] can eat some more. documented in this encounterUniversity Hospitals Beachwood Medical Center03-10-2025 NoteS[facility] NoteS[facility] Telephone encounter Note* Telephone Encounter - Ayana Cheung RN - 08/21/2024 10:28 AM EST Images from the original note were not included. [facility] Phone Encounter DATE of SERVICE: 08/21/2024 TIME of SERVICE: 10:28 AM Status: Non-urgent, needs attention Service/Provider: Thoracic Surgery Ronaldo Flood M.D. Reason for call: Care Coordination Contact information: Roney Campos Home Care nurse, Resolution: Sent to [employer] Comments: Roney Campos home care nurse, called the [facility] post-discharge line to ask to speak with [...] Resolution: 08/21/2024 Time of Resolution 10:28 AM [facility]03-07-2025 Miscellaneous Notes* Telephone Encounter - Ayana Cheung RN - 08/21/2024 10:28 AM EST Images from the original note were not included. [facility] Phone Encounter DATE of SERVICE: 08/21/2024 TIME of SERVICE: 10:28 AM Status: Non-urgent, needs attention Service/Provider: Thoracic Surgery Ronaldo Flood M.D. Reason for call: Care Coordination Contact information: Roney Campos Home Care nurse, Resolution: Sent to [employer] Comments: Roney Campos home care nurse, called the [facility] post-discharge line to ask to speak with [...] of Resolution 10:28 AM documented in this encounterUniversity Hospitals Beachwood [facility] Center03-04-2025 [facility] History of Present illness Narrative* Della Barragan APRN.PRODUCT DEMONSTRATOR - 08/18/2024 2:06 PM EST Images from the original note were not included. Heart, Vascular and Thoracic Walker DEPARTMENT OF THORACIC SURGERY OUTPATIENT VISIT TYPE ESTABLISHED Part of this note was copied from previous note, all content has been individually reviewed, updated as necessary, and thoroughly reviewed. PT NAME: Sav Raymundo [facility] NO: [id number] THORACIC SURGEON: Ronaldo Flood M.D. DATE OF SERVICE: 08/18/2024 PRINCIPAL DX: Pleural Effusion SURGICAL HX 11/20/2023: R VATS pleural biopsy, right airframe and power plant mechanic and doxycycline pleurodesis, right Pleurx catheter insertion, right 20Fr chest tube insertion Surgical Pathology 11/20/2023: FINAL DIAGNOSIS A. Right pleura, biopsy: - Chronic pleuritis with mesothelial hyperplasia (see comment). B. Right pleura, biopsy: - Acute organizing and chronic pleuritis (see comment). CT/ 11/22/2023 Diagnosis Comment A. The biopsy contains [...] 11/20/2023, patient underwent R VATS pleuralbiopsy, right airframe and power plant mechanic and doxycycline pleurodesis, right Pleurx catheter insertion, right 20Fr chest tube insertion. He was hospitalized 12/20/23 for anasarca, possible autoimmune disease, recurrent pleural effusion. Imaging did not reveal any acute findings. Patient was admitted to [facility] and started on lasix drip, improving anasarca and pleural effusion. Pleurx catheter was drained daily with significantly decreasing output [phone]. He was worked up for an autoimmune [...] effusion s/p R VATS pleural biopsy, right airframe and power plant mechanic and doxycycline pleurodesis, right Pleurx catheter insertion, right 20Fr chest tube insertion on 11/20/[address] Flood. PLAN: - continue draining the pleurex daily - Dr Riggs/pulm to perform intrapleural steroid injection - return as needed Della Barragan APRN.PRODUCT DEMONSTRATOR documented in this encounterUniversity Hospitals Beachwood Medical Center02-28-2025 NoteRight Eye Quality was good. Scan locations included subfoveal. Progression has been stable. Findings include normal observations. Left Eye Quality was good. Scan locations included subfoveal. Progression has been stable. Findings include normal observations. Notes Good scan with normal appearanceCooper County Memorial [id number] NoteS[facility]02-26-2025 History of Present illness Narrative* Anne-Marie Bajwa [...] laser capsulotomy, they are to notify their store manager promptly if they have a significant [...] resolution of the lesion. documented in this encounterCooper County Memorial [id number] Telephone encounter Note* Telephone Encounter - Maggie Leon - 08/12/2024 12:42 PM EST Patient requesting return call from Katerina. Please call [phone] I informed patient Beth from [facility] called today and spoke with office. [facility]02-26-2025 Miscellaneous Notes* Telephone Encounter - Maggie Leon - 08/12/2024 12:42 PM EST Patient requesting return call from Katerina. Please call [phone] I informed patient Beth from [facility] called today and spoke with office. documented in this encounterUniversity Hospitals Beachwood Medical Center02-26-2025 Telephone encounter Note * Telephone Encounter - Amanda Brooks - 08/12/2024 12:27 PM EST Beth from [facility] called and would like to speak to Katerina. Spoke with Beth She informed me that pt going to local ED for evaluation. Update: Pt had b/l US - report from [facility] was negative for DVTs was received and sent to be entered into scanned docs. Pt notified of results. Katerina Contreras PA-C [facility]02-26-2025 Miscellaneous Notes* Telephone Encounter - Amanda Brooks - 08/12/2024 12:27 PM EST Beth from [facility] called and would like to speak to Katerina. Spoke with Beth She informed me that pt going to local ED for evaluation. Update: Pt had b/l US - report from [facility] was negative for DVTs was received and sent to be entered into scanned docs. Pt notified of results. Katerina Contreras PA-C documented in this encounterUniversity Hospitals Beachwood Medical Center02-26-2025 Telephone encounter Note * Telephone Encounter - Maggie Leon - 08/12/2024 10:21 AM EST Beth from [facility] called and updated she left a voicemail regarding this patient. He is having issues with pleurrX drain, swelling, weight gain, nausea and constipation. She would like acall back at [phone] [facility] nurse, Beth. Pt still draining daily [...] Flood. Of note, they are meeting with COAL BAGGER Della Barragan on , 08/18/24. Update communicated to Dr. Riggs. Katerina Contreras PA-C Addendum: Nurse reports pt plans on going to [facility] Katerina Contreras PA-C [facility]02-26-2025 Miscellaneous Notes* Telephone Encounter - Maggie Leon - 08/12/2024 10:21 AM EST Beth from [facility] called and updated she left a voicemail regarding this patient. He is having issues with pleurrX drain, swelling, weight gain, nausea and constipation. She would like acall back at [phone] [facility] nurse, Beth. Pt still draining daily [...] Flood. Of note, they are meeting with COAL BAGGER Della Barragan on , 08/18/24. Update communicated to Dr. Riggs. Katerina Contreras PA-C Addendum: Nurse reports pt plans on going to [facility] Katerina Contreras PA-C documented in this encounterUniversity Hospitals [facility] Center02-24-2025 Telephone encounter Note * Telephone Encounter - Amanda Brooks - 08/10/2024 9:35 AM EST Beth from [facility] called and would like to speak to Katerina regarding patient symptoms [facility]02-24-2025 Miscellaneous Notes* Telephone Encounter - Amanda Brooks - 08/10/2024 9:35 AM EST Beth from [facility] called and would like to speak to Katerina regarding patient symptoms documented in this encounterUniversity Hospitals Beachwood [facility] Center02-18-2025 Telephone encounter Note * Telephone Encounter - Maggie Leon - 08/04/2024 10:23 AM EST Call received from home care NurseBeth. She wanted to update our office that she is waiting to hear back from dr Flood. Patient is having issues with pleurix and they are unsure if it's due to clogging or if it's positional. Beth can be reached at [phone] [facility]02-18-2025 Miscellaneous Notes* Telephone Encounter - Maggie Leon - 08/04/2024 10:23 AM EST Call received from home care NurseBeth. She wanted to update our office that she is waiting to hear back from dr Flood. Patient is having issues with pleurix and they are unsure if it's due to clogging or if it's positional. Beth can be reached at [phone] * Telephone Encounter - Amanda Brooks - [...] Yesterday - - 35 Virgen (patient ) [phone] Patient [phone] documented in this encounterUniversity Hospitals Beachwood Medical Center02-18-2025 Telephone encounter Note * Telephone Encounter - Jahaira Wood - 08/04/2024 8:38 AM EST Received missed visit notes from [facility], record scannned in [employer] Jahaira Wood, traffic safety administrator [facility]02-18-2025 Miscellaneous Notes* Telephone Encounter - Jahaira Wood - 08/04/2024 8:38 AM EST Received missed visit notes from [facility], record scannned in [employer] Jahaira Wood, traffic safety administrator documented in this encounterUniversity Hospitals Beachwood Medical Center02-17-2025 Telephone encounter Note * Telephone [...] 20 Today - 35 Virgen (patient ) [phone] Patient [phone] [facility]02-04-2025 History of Present illness Narrative* Jose Antonio Hopper MD - 07/21/2024 2:19 PM EST PROGRESS NOTES Patient Name: Sav Raymundo SERVICE DATE: 07/21/2024 SERVICE TIME: 2:25 PM HPI: Mr. Raymundo is a 74 year old male who presents for Effusion.Has been emptying Plerax catheter daily.Has been seeing process plant operator at [facility].Pleural fluid analysis has been done MEDICATIONS: Current Outpatient Medications Medication Sig Dispense Refill potassium chloride ER (KLOR-CON M20) 20 mEq tablet Take 2 tablets by mouth two times a day. 360 tablet 0 torsemide (DEMADEX) 100 mg tablet Take 1 tablet by mouth once daily. 90 tablet 0 calcium osq-kdm-B9-Zn-naval aircrewman tactical helicopter-kian 250 mg-40 mg- 125 unit-3.75mg tab [...] diaphragmatic excursion. Lungs clear to auscultation. Heart: Bowie normal. Precordium quiet. RRR. Normal HS with [...] 2024 TIME: 2:25 PM documented in this encounterUniversity Hospitals Beachwood Medical Center02-03-2025 History of Present illness Narrative* Triston Riggs MD - 07/20/2024 1:00 PM EST Images from the original note were not included. Respiratory Walker Pulmonary Consultation CC: Persistent RIGHT pleural effusion Sav Raymundo is a 74 year old male sent by Dr. STEPHANE Cesar MD for evaluation of persistent RIGHT pleural effusion. My final recommendations will be communicated to the requesting health care provider by way of the shared medical record for internal providers or letter via the [employer] for external providers. Assessment and [...] did he have some sense of limitation. [place], [place] is home care provider. Excerpt from Dr Cesar 05/20/2024. Mr Raymundo is a 71 y/o, from the [facility], here for follow-up for pleural [...] referred for pleurodesis to thoracic surgery in [facility], which he underwent inJune 2023. Though no pleural fluid analysis done, but pleural biopsy showed pleuritis. Post pleurodesis, he continued to have significant drainage, tunneled pleural catheter was placed. He was then hospitalized ( abdominal bloating ) -in [facility], and responded well to diuresis. He has [...] other day) -Rheumatologic assessment done, workup negative, steam conditioner operator has no evidence of any autoimmune disease -Off prednisone for the last 5 months -Off Plaquenil for the past 3 weeks -On diuretics, now on torsemide Interestingly, on further discussion, mostly with steam conditioner operator, we have uncovered that he has been [...] mouth once daily. 90 tablet 0 calcium fkn-ceu-M0-Zn-naval aircrewman tactical helicopter-kian 250 mg-40 mg- 125 unit-3.75mg tab [...] 0.5 04/20/2024 Abs Neut 5.91 04/20/2024 Abs Childress 1.03 04/20/2024 Abs Eosin <0.03 04/20/2024 Abs [...] 36 % 39 80 (H) 80 (H) Childress%, BF % 6 Macro%, BF 64 - [...] Pulmonology. Pulmonary, Allergy & Critical Care Medicine [facility] documented in this encounterUniversity Hospitals Beachwood Medical Center02-03-2025 NoteS[facility]01-31-2025 NoteHNO ID: [id number] Author: KATERINA CONTRERAS PA-C Service: ? Author Type: Physician Docking Saw Operator Type: Progress Notes Filed: 07/17/2024 14:02 Note Text: Orders for pleurX vacuum bottles signed and faxed back to [facility]. [facility] History of Present illness Narrative* Katerina Contreras PA-C - 07/17/2024 2:01 PM EST Orders for pleurX vacuum bottles signed and faxed back to [facility]. Katerina Contreras PA-C documented in this encounterUniversity Hospitals Beachwood Medical Center01-30-2025 Telephone encounter Note * Telephone Encounter - Maggie Leon - 07/16/2024 2:53 PM EST Called patient's and informed her that there isn't any indication in Dr. Riggs's office notes that request any lab work at this time. [facility]01-30-2025 Miscellaneous Notes* Telephone Encounter - [...] be drawn. If so, [facility] will follow up at [phone] documented in this encounterUniversity Hospitals Beachwood Medical Center01-30-2025 Telephone encounter Note * Telephone Encounter - Maggie Leon - 07/16/2024 12:45 PM EST Patient is a lab in [facility] and they only see orders for body fluid, which they are unable to do. Patient would like to confirm if blood labs will need to be drawn. If so, [facility] Admin will follow up at [phone] [facility]01-28-2025 Evaluation note* Diagnosis Onset Date Resolution Status Admit Date Nausea & vomiting acute July 14, 2024 4:27pm Viral respiratory illness acute July 14, 2024 4:27pm [facility] Work Phone: 1(570) 845-666401-22-2025 NoteScci [facility]01-22-2025 History of Present illness Narrative* Katerina Contreras PA-C - 07/08/2024 9:41 AM EST Received fax from [employer] for signature for updated pleurX draining order to daily draining for 2 months. This was completed and faxed back to them. Katerina Contreras PA-C documented in this encounterUniversity Hospitals Beachwood Medical Center01-06-2025 NoteScci Hospital [facility]ima01-06-2025 History of Present illness Narrative* Katerina Contreras PA-C - 06/22/2024 3:10 PM EST Per request of Dr. Riggs, we plan on increasing his pleurX catheter draining to everyday. Updated orders sent to [facility] (supplies) and [facility] (faxed to [phone]). His home nurseis Beth, work cell [phone]. She is to call us if sudden cessation of drainage or 3 subsequent drains of less than 100 ml. Katerina Contreras PA-C documented in this encounterUniversity Hospitals Beachwood Medical Center01-06-2025 History and physical note * Triston Riggs MD - 06/22/2024 9:00 AM EST Images from the original note were not included. Respiratory Walker Pulmonary Consultation CC: Persistent RIGHT pleural effusion Sav Raymundo is a 74 year old male sent by Dr. STEPHANE Cesar MD for evaluation of persistent RIGHT pleural effusion. My final recommendations will be communicated to the requesting health care provider by way of the shared medical record for internal providers or letter via the [employer] for external providers. Assessment and [...] did he have some sense of limitation. [facility], [place], [place] is home care provider. Excerpt from Dr Cesar 05/20/2024. Mr Raymundo is a 71 y/o, from the [facility], here for follow-up for pleural [...] referred for pleurodesis to thoracic surgery in [facility], which he underwent inJune 2023. Though no pleural fluid analysis done, but pleural biopsy showed pleuritis. Post pleurodesis, he continued to have significant drainage, tunneled pleural catheter was placed. He was then hospitalized ( abdominal bloating ) -in [facility], and responded well to diuresis. He has [...] other day) -Rheumatologic assessment done, workup negative, steam conditioner operator has no evidence of any autoimmune disease -Off prednisone for the last 5 months -Off Plaquenil for the past 3 weeks -On diuretics, now on torsemide Interestingly, on further discussion, mostly with steam conditioner operator, we have uncovered that he has been [...] Current Outpatient Medications Medication Sig Dispense Refill zgrfhr-gzycbcvd-ybplcdm (CREON) 36,000-114,000- 180,000 unit delayed release capsule Take 2 capsules by mouth three times a day with meals. 200 capsule 1 potassium chloride ER (KLOR-CON M20) 20 mEq tablet Take 2 tablets by mouth two times a day. 360 tablet 0 torsemide (DEMADEX) 100 mg tablet Take 1 tablet by mouth once daily. 90 tablet 0 calcium bec-dyi-L2-Zn-naval aircrewman tactical helicopter-kian 250 mg-40 mg- 125 unit-3.75mg tab [...] 0.5 04/20/2024 Abs Neut 5.91 04/20/2024 Abs Childress 1.03 04/20/2024 Abs Eosin <0.03 04/20/2024 Abs [...] Pulmonology. Pulmonary, Allergy & Critical Care Medicine [facility] Work Phone: [phone] 346-853101-06-2025 History and physical note* Triston Riggs MD - 06/22/2024 9:00 AM EST Images from the original note were not included. Respiratory Walker Pulmonary Consultation CC: Persistent RIGHT pleural effusion Sav Raymundo is a 74 year old male sent by Dr. STEPHANE Cesar MD for evaluation of persistent RIGHT pleural effusion. My final recommendations will be communicated to the requesting health care provider by way of the shared medical record for internal providers or letter via the [employer] for external providers. Assessment and [...] did he have some sense of limitation. [facility], [place], [place] is home care provider. Excerpt from Dr Cesar 05/20/2024. Mr Raymundo is a 71 y/o, from the [facility], here for follow-up for pleural [...] referred for pleurodesis to thoracic surgery in [facility], which he underwent inJune 2023. Though no pleural fluid analysis done, but pleural biopsy showed pleuritis. Post pleurodesis, he continued to have significant drainage, tunneled pleural catheter was placed. He was then hospitalized ( abdominal bloating ) -in [facility], and responded well to diuresis. He has [...] other day) -Rheumatologic assessment done, workup negative, steam conditioner operator has no evidence of any autoimmune disease -Off prednisone for the last 5 months -Off Plaquenil for the past 3 weeks -On diuretics, now on torsemide Interestingly, on further discussion, mostly with steam conditioner operator, we have uncovered that he has been [...] Current Outpatient Medications Medication Sig Dispense Refill wvmdet-otnngyhz-uchdkwg (CREON) 36,000-114,000- 180,000 unit delayed release capsule Take 2 capsules by mouth three times a day with meals. 200 capsule 1 potassium chloride ER (KLOR-CON M20) 20 mEq tablet Take 2 tablets by mouth two times a day. 360 tablet 0 torsemide (DEMADEX) 100 mg tablet Take 1 tablet by mouth once daily. 90 tablet 0 calcium ven-dnb-O2-Zn-naval aircrewman tactical helicopter-kian 250 mg-40 mg- 125 unit-3.75mg tab [...] 0.5 04/20/2024 Abs Neut 5.91 04/20/2024 Abs Childress 1.03 04/20/2024 Abs Eosin <0.03 04/20/2024 Abs [...] Pulmonology. Pulmonary, Allergy & Critical Care Medicine [facility] documented in this encounterUniversity Hospitals Beachwood Medical Center12-27-2024 History of Present illness Narrative* [...] 2 in PM) 120 tablet 2 calcium hmp-pmn-C8-Zn-naval aircrewman tactical helicopter-kian 250 mg-40 mg- 125 unit-3.75mg tab [...] Take 1 tablet by mouth once daily. mltmqq-lefprrrs-gomhwgu (CREON) 36,000-114,000- 180,000 unit delayed release capsule [...] diaphragmatic excursion. Lungs clear to auscultation. Heart: Bowie normal. Precordium quiet. RRR. Normal HS with [...] 2024 TIME: 3:04 PM documented in this encounterUniversity Hospitals Beachwood Medical Center12-18-2024 NoteScci Hospital [facility]ima12-18-2024 History of Present illness Narrative* Steffen Mccarty MD - 06/03/2024 10:23 AM EST Images from the original note were not included. Rheumatology FOLLOW UP VISIT Date of Service: 06/01/2024 Patient: Sav Raymundo Medical Record: [id number] Primary Care Physician: Yuli Mariscal DO Last [...] PMHx except for bilateral knee replacements and Pinson fracture s/p surgery who presents for evaluation [...] underwent on 11/20/2023 R VATS with R airframe and power plant mechanic and doxyxyclyine pleurodesis, pleural biopsy. Biopsy [...] in Am and 2 in PM) calcium tmg-hgy-J5-Zn-naval aircrewman tactical helicopter-kian 250 mg-40 mg- 125 unit-3.75mg tab [...] AI <0.2 Sm Antibody Negative Negative Ribosomal HEALTH ANALYST Ab <1.0 AI <0.2 Ribosomal HEALTH ANALYST Qualitative Negative Negative Chromatin Ab <1.0 AI <0.2 Chromatin Ab Qual Negative Negative SSA Antibody Qual Negative Negative Anti-SSA <1.0 AI <0.2 Anti-SSB <1.0 AI <0.2 HEALTH ANALYST Antibody QUAL Negative Negative Scleroderma Ab Qual [...] on 06/01/2024 Name Date COVID-19 vaccine, monovalent (Boomerang) 09/13/2020, 08/22/2020, 08/15/2020 influenza (aIIV3) vaccine 05/09/2020 [...] Full ROM in flexion and extension. Full livestock breeder strength. No swelling or synovitis along the [...] is currently no information [facility] the [facility] Go to the Rheumatology activity andcomplete the [facility] joint exam. Joint Exam 06/01/2024 No joint [...] which included preparing to see the patient, qnfs-uu-ezpk patient care, completing clinical documentation, obtaining and/or reviewing separately obtained history, performing a medically appropriate examination, and counseling and educating the patient/family/caregiver. Steffen Villa MD Rheumatology Date: June 03, 2024 Time: 10:43 AM documented in this encounterUniversity Hospitals Beachwood Medical Center12-10-2024 History of Present illness Narrative* [...] times a day. 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-kian 250 mg-40 mg- 125 unit-3.75mg tab [...] 26, 2024 9:42 AM documented in this encounterUniversity Hospitals Beachwood Medical Center12-10-2024 NoteScci Hospital [facility]12-09-2024 Telephone encounter Note* Telephone Encounter - Marcy Longoria - 05/25/2024 12:15 PM EST Spoke with spouse to schedule appt 06/22 [facility]12-09-2024 Miscellaneous Notes* Telephone Encounter - Marcy Longoriapepe - 05/25/2024 12:15 PM EST Spoke with spouse to schedule appt 06/22 documented in this encounterUniversity Hospitals Beachwood Medical Center12-02-2024 Instructions* Patient Instructions* Louise Cesar [...] CT scan and see Interventional Pulmonary in [facility] or [place]. Pleuroscopy could be considered but difficult after Angelique chest surgery (VATS pleurodesis) Next steps to do - see Interventional Pulmonary Dr. Riggs/Vicki with CT scan - stay tuned. Please check in if you don't hear anything in the next 2-[address] Reinaldo Cesar MD Pulmonary and Critical Care Medicine [facility] documented in this encounterUniversity Hospitals Beachwood Medical Center12-02-2024 History of Present illness Narrative* [...] PATIENT PRESENTS WITH AN IMPLANTABLE OR ATTACHED METALSMITH: No RADIOLOGY DEPARTMENT: General X-ray: Exam(s) Completed: Chest X-Ray PERIPHERAL IV DATA: Not applicable SIGNED BY: RT Rosaline(R) May 18, 2024 10:54 AM documented in this encounterUniversity Hospitals Beachwood Medical Center12-02-2024 NoteScci Hospital [facility]12-02-2024 NoteScci Hospital [facility]12-02-2024 History of Present illness Narrative* Louise Cesar MD - 05/18/2024 10:55 AM EST Images from the original note were not included. INTERVAL HPI: Willie is a gentleman in his 70s, from the [facility], here for follow-up for pleural [...] referred for pleurodesis to thoracic surgery in [facility], which he underwent inJune 2023. Though no pleural fluid analysis done, but pleural biopsy showed pleuritis. Post pleurodesis, he continued to have significant drainage, tunneled pleural catheter was placed. He was then hospitalized ( abdominal bloating ) -in [facility], and responded well to diuresis. He has [...] other day) -Rheumatologic assessment done, workup negative, steam conditioner operator has no evidence of any autoimmune disease -Off prednisone for the last 5 months -Off Plaquenil for the past 3 weeks -On diuretics, now on torsemide Interestingly, on further discussion, mostly with steam conditioner operator, we have uncovered that he has been [...] pleural effusion s/p R-VATS pleural biopsy, right airframe and power plant mechanic and doxycycline pleurodesis, right Pleurx catheter insertion, on 12/10/2023. Mr. Kumar presents with an interesting history. He is a semiretired gentleman from the [facility], with virtually no past medical history, very [...] and he was referred to a local process plant operator. He underwent thoracentesis several times, each time pleural fluid analysis showed exudative fluid. CT scan was obtained locally which did not reveal much except pleural effusion. CT scan also shows pericardial effusion. He was then referred by his local process plant operator to [facility] for a pleurodesis. In November 2023, he underwent VATS pleurodesis (mechanical and doxycycline), with pleural biopsy, and the Pleurx catheter was also placed. Analysis of the pleural fluid and biopsies of the pleura showed acute and chronic pleuritis with organization, but no malignancy. We do not have pleural fluid chemical or hematological analysis done in [facility], but cytology was negative for malignant cells. He was discharged with Pleurx catheter, and and has been draining pleural fluid about 500 to 800 mLevery other day. And his dry cough has also been persistent. In December 2023, he was sent to [facility] after seeing thoracic surgery ADRIENNE for [...] He is scheduled to see rheumatology in [facility] in the next 2 weeks. Of note [...] overload/CHF?, chronic cough - local PCP, has [facility] PCP, Dr. 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 Outpatient Medications: calcium tgv-stq-V3-Zn-naval aircrewman tactical helicopter-kian 250 mg-40 mg- 125 unit-3.75mg tab [...] personally reviewed by me Data Reviewed from [facility] (in addition to that noted in HPI, and Past histories above): CMP, CBC Testing data, personally reviewed and interpreted by me: PFT, Imaging, Labs, CVS data. Assessment: Sav Raymundo is a 74 year old male presents for evaluation/follow-up of: for chronic cough and recurrent right-sided pleural effusion s/p R-VATS pleural biopsy, right airframe and power plant mechanic and doxycycline pleurodesis, right Pleurx catheter [...] test neg, EF >50%, Repeat echo in [facility] March 26, 2024 - normal Problems: (J90) Pleural effusion (primary encounter diagnosis) (R05.3) Chronic cough (R91.1) Lung nodule (K52.832) Lymphocytic colitis Vaccines: current except flu shot, planning to get it PMH:pleural effusion, fluid overload/CHF, chronic cough - local PCP, has [facility] PCP, Dr. Flood (Thoracic), scheduled to see steam conditioner operator in [facility] Social:Lives near [place], in own house, with , no pets, adult kids, just 1 daughter who lives in [place], 2 grand-kids, no lung disease in the [...] CT scan and see Interventional Pulmonary in [facility] or [place]. Pleuroscopy could be considered but difficult after November chest surgery (VATS pleurodesis) Sav Raymundo understands the plan and discussion and is comfortable with it. I spent a total of 45 minutes on the date of the service which included preparing to see the patient, qjzb-ra-dmpw patient care, completing clinical documentation, obtaining and/or reviewing separately obtained history, performing a medically appropriate examination, counseling and educating the pat ient/family/caregiver, ordering medications, tests, or procedures, independently interpreting results (not separately reported), and care coordination (not separately reported). Louise Cesar MD documented in this encounterUniversity Hospitals Beachwood Medical Center11-27-2024 History of Present illness Narrative* [...] two times a day. 60 tablet 0 JYAWODB-DFMCUHQPS-DTEG ORAL Take by mouth. iv contrast (will [...] 1 tablet by mouth once daily. calcium dtt-wxn-P6-Zn-naval aircrewman tactical helicopter-kian 250 mg-40 mg- 125 unit-3.75mg tab [...] diaphragmatic excursion. Lungs clear to auscultation. Heart: Bowie normal. Precordium quiet. RRR. Normal HS with [...] 2024 TIME: 11:13 AM documented in this encounterUniversity Hospitals Beachwood Medical Center11-21-2024 Telephone encounter Note * Telephone Encounter - Britney Hsu RN - 05/07/2024 7:29 PM EST . [facility]11-21-2024 Miscellaneous Notes* Telephone Encounter - Britney Hsu RN - 05/07/2024 7:29 PM EST . documented in this encounterUniversity Hospitals Beachwood Medical Center11-12-2024 History and physical note * [...] MAC Additional Comments: None Vic Ponce MD [facility]11-12-2024 History and physical note* Vic [...] None Vic Ponce MD documented in this encounterUniversity Hospitals Beachwood Medical Center11-12-2024 Nurse Note* Jahaira Hood RN [...] PROVIDED TO PATIENT: None REFERRAL (RECOMMENDATION): None [facility]11-12-2024 Nurse Note* Jahaira Hood RN [...] Signed By: Maureen Laughlin documented in this encounterUniversity Hospitals Beachwood Medical Center11-12-2024 Nurse Note* Maureen Laughlin RN [...] (RECOMMENDATION): None Electronically Signed By: Maureen Laughlin [facility]11-06-2024 History of Present illness Narrative* [...] this RN, 2 attempts by Tonya Wagner counter intelligence technician. Patient requests to try again to [...] PATIENT PRESENTS WITH AN IMPLANTABLE OR ATTACHED METALSMITH: No RADIOLOGY DEPARTMENT: CT; Exam(s) Completed: Enterography PERIPHERAL IV DATA: Not applicable SIGNED BY: RT Tyree(R) April 22, 2024 11:55 AM documented in this encounterUniversity Hospitals Beachwood Medical Center11-06-2024 NoteScci Hospital [facility]11-06-2024 NoteScci Hospital [facility]11-05-2024 NoteCALPROTECTIN, FECAL INTERPBorderline elevated. Re-evaluation in 4-6 weeks is recommended if clinically indicated.(A)Fyyuvf5704/21/2024 9:04 PM ESTKing's Daughters Medical Center OhioComment on above:Interpretation: <50.0 ug/g: Normal 50.0 ug/g - 120.0 ug/g: Borderline elevated. Re-evaluation in 4-6 weeks is recommended if clinically indicated. >120.0 ug/g: Elevated 04-20-2024 NoteBorderline elevated. Re-evaluation in 4-6 weeks is recommended if clinically indicated.Scci Hospital LimaComhutzel women's hospital on above:Order Comment: Specimen Type: STOOL SPECIMENOrdering Facility: [facility] Address:[address] [place] [address] [place], [place] [address] Comment: Interpretation:<50.0 ug/g: Dluzor61.0 ug/g - 120.0 ug/g: Borderline elevated. Re-evaluation in 4-6 weeks is recommended if clinically indicated.>120.0 ug/g: ElevatedPerformed By: #### [id number], [id number], PANCEF ####[facility] LABCLIA [id number] [facility] [id number] [address] [facility] 04-20-2024 Instructions* Patient Instructions* Sue Murillo MD [...] am on dialysis? A: Please consult your ice cream dipper prior to scheduling to get instructions pertinent to you. In general, dialysis patients take the PopUply bowel prep and have the procedure same [...] to inadequate prep quality. documented in this encounterUniversity Hospitals Beachwood Medical Center11-04-2024 NoteScci [facility]11-04-2024 History of Present illness Narrative* Sue Murillo MD - 04/20/2024 11:46 AM EST NAME: Sav Raymundo [facility] NO: [id number] REASON FOR VISIT Sav Raymundo is a [...] Current Outpatient Medications Medication Sig Dispense Refill LLCYRZC-QVZUUFESG-XTMU ORAL Take by mouth. iv contrast (will [...] 20, 2024 11:46 AM documented in this encounterUniversity Hospitals Beachwood Medical Center10-15-2024 NoteScci [facility]10-15-2024 History of Present illness Narrative* Steffen Mccarty MD - 03/31/2024 4:33 PM EDT Images from the original note were not included. Rheumatology CONSULTATION Date of Service: 03/30/2024 Patient: Sav Raymundo Medical Record: [id number] Primary Care Physician: Yuli Mariscal DO Last Rheumatology visit: 03/30/2024 (with Steffen Villa) Referring Provider: Tita Landry [address] [place] [id number] Sav Raymundo is here today at request of Tita Haywood, LETICIA.PRODUCT DEMONSTRATOR specifically for consultation of my opinion in regards to the chief complaint listed below. Correspondence will be sharedtoday via the [employer] electronic health record or through regular mail, [...] PMHx except for bilateral knee replacements and Pinson fracture s/p surgery who presents for evaluation [...] for malignancy) Then decided to come to [facility] for second opinion. Saw Thoracic surgery first and underwent on 11/20/2023 R VATS with R airframe and power plant mechanic and doxyxyclyine pleurodesis, pleural biopsy. Biopsy [...] Current Medications Current Outpatient Medications Medication Sig QENHBYG-ULNEHVHUE-OHPO ORAL Take by mouth. iv contrast (will [...] AI <0.2 Sm Antibody Negative Negative Ribosomal HEALTH ANALYST Ab <1.0 AI <0.2 Ribosomal HEALTH ANALYST Qualitative Negative Negative Chromatin Ab <1.0 AI <0.2 Chromatin Ab Qual Negative Negative SSA Antibody Qual Negative Negative Anti-SSA <1.0 AI <0.2 Anti-SSB <1.0 AI <0.2 HEALTH ANALYST Antibody QUAL Negative Negative Scleroderma Ab Qual [...] on 03/30/2024 Name Date COVID-19 vaccine, monovalent (Boomerang) 09/13/2020, 08/22/2020, 08/15/2020 influenza (aIIV3) vaccine 05/09/2020 [...] which included preparing to see the patient, pgyn-jp-psct patient care, completing clinical documentation, obtaining and/or reviewing separately obtained history, performing a medically appropriate examination, and counseling and educating the patient/family/caregiver. Steffen Villa MD Rheumatology Date: March 31, 2024 Time: 4:33 PM documented in this encounterUniversity Hospitals Beachwood Medical Center10-01-2024 History of Present illness Narrative* [...] PATIENT PRESENTS WITH AN IMPLANTABLE OR ATTACHED METALSMITH: No ALLERGIES: Reviewed and unchanged CONTRAST ALLERGY: [...] 2024 TIME: 4:04 PM documented in this encounterUniversity Hospitals Beachwood Medical Center10-01-2024 NoteHNO ID: [id number] Author: JUAN SON RT(R) Service: Radiology Author Type: Venetian Blind Tape Cutter Type: Progress Notes Filed: 03/17/2024 16:04 Note [...] PATIENT PRESENTS WITH AN IMPLANTABLE OR ATTACHED METALSMITH: No ALLERGIES: Reviewed and unchanged CONTRAST ALLERGY: [...] Raymundo DATE: March 17, 2024 TIME: 4:04 [id number] History of Present illness Narrative* Ruma Oshea PA-C - 03/17/2024 1:30 PM EDT Images from the original note were not included. [facility] - OUTPATIENT THORACIC SURGERY CLINIC NOTE PT NAME: Sav Raymundo [facility] NO: [id number] THORACIC SURGEON: Ronaldo Flood M.D. 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 Right pleura, biopsy: - Chronic pleuritis with mesothelial hyperplasia (see comment). B. Right pleura, biopsy: - Acute organizing and chronic pleuritis (see comment). CT/ 11/22/2023 Diagnosis Comment A. The biopsy contains [...] 11/20/2023, patient underwent R VATS pleuralbiopsy, right airframe and power plant mechanic and doxycycline pleurodesis, right Pleurx catheter insertion, right 20Fr chest tube insertion. He was hospitalized 12/20/23 for anasarca, possible autoimmune disease, recurrent pleural effusion. Imaging did not reveal any acute findings. Patient was admitted to [facility] and started on lasix drip, improving anasarca and pleural effusion. Pleurx catheter was drained daily with significantly decreasing output [phone]. He was worked up for an autoimmune [...] presents to clinic today for postoperative visit. [facility] RN called in 03/03 reporting increase [...] effusion s/p R VATS pleural biopsy, right airframe and power plant mechanic and doxycycline pleurodesis, right Pleurx catheter insertion, right 20Fr chest tube insertion on 11/20/[address] Flood. He was hospitalized 12/20/23 for anasarca, possible autoimmune disease, and recurrent pleural effusion. Imaging did not reveal any acute findings. Patient was admitted to [facility] and started on lasix drip, with improving anasarca and pleural effusion. Pleurx catheter was drained daily with significantly decreasing output [phone]. He was worked up for an autoimmune disease as well. He was discharged on an increased dose of lasix (20mg > 80mg) and started on Plaquenil. PLAN: - continue draining pleurx every 3 days - call our office if any new or worsening symptoms - follow up with steam conditioner operator 04/13 for their recommendations - discussed with patient to reach out to our office with rheum recommendations, as well as if pleurx output has significantly decreased to discuss removing pleurx Ruma Oshea PA-C documented in this encounterUniversity Hospitals Beachwood Medical Center10-01-2024 NoteHNO ID: [id number] Author: RUMA OSHEA PA-C Service: ? Author Type: Physician Docking Saw Operator Type: Progress Notes Filed: 03/17/2024 14:26 Note Text: [facility] - OUTPATIENT THORACIC SURGERY CLINIC NOTE PT NAME: [place] [facility] NO: [id number] THORACIC SURGEON: Ronaldo Flood M.D. DATE OF SERVICE: 03/17/2024 PRINCIPAL DX: Pleural Effusion SURGICAL HX 11/20/2023: R VATS pleural biopsy, right airframe and power plant mechanic and doxycycline pleurodesis, right Pleurx catheter [...] patient underwent R VATS pleural biopsy, right airframe and power plant mechanic and doxycycline pleurodesis, right Pleurx catheter insertion, right 20Fr chest tube insertion. He was hospitalized 12/20/23 for anasarca, possible autoimmune disease, recurrent pleural effusion. Imaging did not reveal any acute findings. Patient was admitted to [facility] and started on lasix drip, improving anasarca and pleural effusion. Pleurx catheter was drained daily with significantly decreasing [phone]. He was worked up for an autoimmune [...] presents to clinic today for postoperative visit. [facility] RN called in 03/03 reporting increase in output from pleurX. Drainage schedule at that time was switchde to 3x weekly until output slows down. Prednisone course finished, plaquenil increased to BID. Patient with increase in weight and 2+ pitting BLE. Seen by pulmonary today, follow up with rheum 04/13. Patient notes today (more content not included)...[facility] 03-17-2024 History of Present illness Narrative* Bryn Pride RRT - 03/17/2024 1:29 PM EDT PULM FUNCTION: Provider: Louise Cesar MD DLCO: 1 LV - Box: 1 documented in this encounterUniversity Hospitals Beachwood Medical Center10-01-2024 Instructions* Patient Instructions* Louise Cesar [...] Cesar MD Pulmonary and Critical Care Medicine [facility] documented in this encounterUniversity Hospitals Beachwood Medical Center10-01-2024 NoteHNO ID: [id number] Author: LOUISE CESAR MD Service: ? Author Type: Physician Type: Progress Notes Filed: 03/18/2024 08:55 Note Text: Mr. Raymundo is a 74 year old male who [facility] Respiratory Walker. Consultation requested by Dr. Hopper and Dr. Ronaldo Flood. My final recommendations/evaluation will be communicated back to the requesting physician by way of shared medical record or letter via US mail. This note was partially created using [employer] Voice recognition software and is inherently subject to errors including those of syntax and ?sound-alike? substitutions which may escape proofreading. In such instances, original meaning may be extrapolated by contextual derivation. HPI on March 17, 2024: Sav Raymundo is a gentleman in his 70s, presenting to the pulmonary clinic, for chronic cough and recurrent right-sided pleural effusion s/p R-VATS pleural biopsy, right airframe and power plant mechanic and doxycycline pleurodesis, right Pleurx catheter insertion, on 12/10/2023. Mr. Kumar presents with an interesting history. He is a semiretired gentleman from the [facility], with virtually no past medical history, very [...] and he was referred to a local process plant operator. He underwent thoracentesis several times, each time pleural fluid analysis showed exudative fluid. CT scan was obtained locally which did not reveal much except pleural effusion. CT scan also shows pericardial effusion. He was then referred by his local process plant operator to [facility] for a pleurodesis. In November 2023, he underwent VATS pleurodesis (mechanical and doxycycline), with pleural biopsy, and the Pleurx catheter was also placed. Analysis of the pleural fluid and biopsies of the pleura showed acute and chronic pleuritis with organization, but no malignancy. We do not have pleural fluid chemical or hematological analysis done in [facility], but cytology was negative for malignant cells. He was discharged with Pleurx catheter, and and has been draining pleural fluid about 500 to 800 mL every other day. And his dry cough has also been persistent. In December 2023, he was sent to [facility] after seeing thoracic surgery ADRIENNE for [...] He is scheduled to see rheumatology in [facility] in the next 2 weeks. Of note [...] a history of c (more content not included)...[facility]10-01-2024 History of Present illness Narrative* Louise Cesar MD - 03/17/2024 10:46 AM EDT Images from the original note were not included. Mr. Raymundo is a 74 year old male who [facility] Respiratory Walker. Consultation requested by Dr. Hopper and Dr. Ronaldo Flood. My final recommendations/evaluation will be communicated back to the requesting physician by way of shared medical record or letter via US mail. This note was partially created using [employer] Voice recognition software and is inherently subject to errors including those of syntax and sound-alike substitutions which may escape proofreading.In such instances, original meaning may be extrapolated by contextual derivation. HPI on March 17, 2024: Sav Raymundo is a gentleman in his 70s, presenting to the pulmonary clinic, for chronic cough and recurrent right-sided pleural effusion s/p R-VATS pleural biopsy, right airframe and power plant mechanic and doxycycline pleurodesis, right Pleurx catheter insertion, on 12/10/2023. Mr. Kumar presents with an interesting history. He is a semiretired gentleman from the [facility] [place], with virtually no past medical history, very [...] and he was referred to a local process plant operator. He underwent thoracentesis several times, each time pleural fluid analysis showed exudative fluid. CT scan was obtained locally which did not reveal much except pleural effusion. CT scan also shows pericardial effusion. He was then referred by his local process plant operator to [facility] for a pleurodesis. In November 2023, he underwent VATS pleurodesis (mechanical and doxycycline), with pleural biopsy, and the Pleurx catheter was also placed. Analysis of the pleural fluid and biopsies of the pleura showed acute and chronic pleuritis with organization, but no malignancy. We do not have pleural fluid chemical or hematological analysis done in [facility], but cytology was negative for malignant cells. He was discharged with Pleurx catheter, and and has been draining pleural fluid about 500 to 800 mLevery other day. And his dry cough has also been persistent. In December 2023, he was sent to [facility] after seeing thoracic surgery ADRIENNE for [...] He is scheduled to see rheumatology in [facility] in the next 2 weeks. Of note [...] overload/CHF?, chronic cough - local PCP, has [facility] PCP, Dr. Flood (Thoracic), scheduled to see steam conditioner operator in [facility] Main [place] Social:Lives near [place], in own house, with , no pets, adult kids, just 1 daughter who lives in [place], 2 grand-kids, no lung disease in the [...] Onset Heart Father Allergies: Tramadol Outpatient Medications: IVGFRIS-[id number]-SUCX ORAL Take by mouth. diclofenac (VOLTAREN) 1 [...] personally reviewed by me Data Reviewed from [facility] (in addition to that noted in HPI, and Past histories above): CMP, CBC Testing data, personally reviewed and interpreted by me: PFT, Imaging, Labs, CVS data. 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 Flood (Thoracic), scheduled to see steam conditioner operator in [facility] [place] Social:Lives near [place], in own house, with , no pets, adult kids, just 1 daughter who lives in [place], 2 grand-kids, no lung disease in the [...] which included preparing to see the patient, [id number] patient care, completing clinical documentation, obtaining and/or reviewing separately obtained history, performing a medically appropriate examination, counseling and educating the pat ient/family/caregiver, ordering medications, tests, or procedures, independently interpreting results (not separately reported), and care coordination (not separately reported). Louise Cesar MD documented in this encounterUniversity Hospitals Beachwood Medical Center10-01-2024 Nurse Note* Jacqueline García RN - 03/17/2024 10:17 AM EDT Sav Raymundo is a very pleasant 74 year old male who presents today for pleural effusion (November 19), still has chest drainage tube Pleurex tube After surgery, fluid still gathering around right lung. Last seen by Pulmonary Doctor? Dr. Clemente in [facility]. Outside of [facility]. Is Dr. Cesar on Care Team as Embedded Software Architect? no Meds reviewed - Refills pended?no Since last seen Have you had any resp illnessses, COVID, exacerbations or recent visits to ER?hospital/Urgent-Care? [place] December 19 x 1 week, Vaccines: Immunization [...] vaccine, recombinant (SHINGRIX) 08/30/2018 Modified [employer] [place] Dyspnea Scale (MMRC) I stop for breath after walking about 100 yards or after a few minutes on level ground 3 Patient Entered Questionnaires 10/23/2023 PROMIS Global Health - (T-Scores - the mean of general population = 50. Five points is a clinicallymeaningful difference.) Physical T-Score 44.9 Mental T-Score 43.5 [facility]10-01-2024 Nurse Note* Jacqueline García RN - 03/17/2024 10:17 AM EDT Sav Raymundo is a very pleasant 74 year old male who presents today for pleural effusion (November 19), still has chest drainage tube Pleurex tube After surgery, fluid still gathering around right lung. Last seen by Pulmonary Doctor? Dr. Clemente in [facility]. Outside of [facility]. Is Dr. Cesar on Care Team as Embedded Software Architect? no Meds reviewed - Refills pended?no Since last seen Have you had any resp illnessses, COVID, exacerbations or recent visits to ER?hospital/Urgent-Care? [place] December 19 x 1 week, Vaccines: Immunization [...] vaccine, recombinant (SHINGRIX) 08/30/2018 Modified [employer] [place] Dyspnea Scale (MMRC) I stop for breath after walking about 100 yards or after a few minutes on level ground 3 Patient Entered Questionnaires 10/23/2023 PROMIS Global Health - (T-Scores - the mean of general population = 50. Five points is a clinicallymeaningful difference.) Physical T-Score 44.9 Mental T-Score 43.5 documented in this encounterUniversity Hospitals Beachwood Medical Center10-01-2024 History of Present illness Narrative* [...] PATIENT PRESENTS WITH AN IMPLANTABLE OR ATTACHED METALSMITH: N/A RADIOLOGY DEPARTMENT: General X-ray: Exam(s) Completed: Chest X-Ray PERIPHERAL IV DATA: Not applicable SIGNED BY: Lilia CANTU(R) March 17, 2024 8:38 AM documented in this encounterUniversity Hospitals Beachwood Medical Center10-01-2024 NoteHNO ID: [id number] Author: ALAN DELGADO RT(R) Service: Radiology Author [...] PATIENT PRESENTS WITH AN IMPLANTABLE OR ATTACHED METALSMITH: N/A RADIOLOGY DEPARTMENT: General X-ray: Exam(s) Completed: Chest X-Ray PERIPHERAL IV DATA: Not applicable SIGNED BY: Lilia CANTU(R) March 17, 2024 8:38 [facility]10-01-2024 NoteHNO ID: [id number] Author: CHELSY HILLS RRT Service: ? Author Type: Registered Resp Therapist Type: Progress Notes Filed: 03/17/2024 08:16 Note Text: PULM FUNCTION: Provider: Katerina Bravo APRN.CNP Spirometry: 1 Exhaled Nitric Oxide: [address] [place], [place] [address]10-01-2024 History of Present illness Narrative* Chelsy Hills RRT - 03/17/2024 8:16 AM EDT PULM FUNCTION: Provider: Katerina Bravo APRN.CNP Spirometry: 1 Exhaled Nitric Oxide: 1 documented in this encounterUniversity Hospitals Beachwood Medical Center10-01-2024 NoteHNO ID: [id number] Author: CHELSY HILLS RRT Service: ? Author [...] Raymundo DATE: March 17, 2024 TIME: 8:16 [facility]10-01-2024 Procedure note* Chelsy Hills RRT - 03/17/2024 [...] DATE: March 17, 2024 TIME: 8:16 AM [facility]10-01-2024 Procedure note* Chelsy Hills RRT [...] 2024 TIME: 8:16 AM documented in this encounterUniversity Hospitals Beachwood Medical Center09-17-2024 Telephone encounter Note * Telephone Encounter - Bryn Lorenzana RN - 03/03/2024 10:55 AM EDT Images from the original note were not included. [facility] Phone Encounter DATE of SERVICE: 03/03/2024 TIME of SERVICE: 10:56 AM Status: [facility] Service/Provider: Thoracic Surgery Ronaldo Flood M.D. Reason for call: Other Issue Contact information: [phone] Resolution: Sent to [employer] Comments: Please call [facility] EVAN Campos back at [phone]. Bryn Lorenzana RN Date of Resolution: 03/03/2024 Time of Resolution 10:56 AM [facility]09-17-2024 Miscellaneous Notes* Telephone Encounter - Bryn Lorenzana RN - 03/03/2024 10:55 AM EDT Images from the original note were not included. [facility] Phone Encounter DATE of SERVICE: 03/03/2024 TIME of SERVICE: 10:56 AM Status: [facility] Service/Provider: Thoracic Surgery Ronaldo Flood M.D. Reason for call: Other Issue Contact information: [phone] Resolution: Sent to [employer] Comments: Please call [facility] EAVN Campos back at [phone]. Bryn Lorenzana RN Date of Resolution: 03/03/2024 Time of Resolution 10:56 AM documented in this encounterUniversity Hospitals Beachwood Medical Center09-17-2024 Telephone encounter Note * Telephone Encounter - Bryn Lorenzana RN - 03/03/2024 10:[address] [facility] called back. Please give call when able. [facility]09-17-2024 Miscellaneous Notes* Telephone Encounter - Bryn Lorenzana RN - 03/03/2024 10:[address] [facility] called back. Please give call when able. * Telephone Encounter - Tita Landry APRN.CNP - 03/03/2024 10:46 AM EDT [facility] hospital Beth GORDON's phone call. States patient's pleurx [...] Dr. Hopper's office to update him. Instructed [facility] RN to increase draining to three times weekly until output slows back down. Instructed to have patient call Dr. Hopper's office to schedule an appointment for evaluation of worsening edema and weight gain. Tita Landry APRN.CURT 03/03/2024 10:46 AM * Telephone Encounter - Sherie Payne RN - 03/03/2024 9:54 AM EDT Beth from [facility] [phone] She wanted to speak with Tita Rodriguez CNP. documented in this encounterUniversity Hospitals Beachwood Medical Center09-17-2024 Telephone encounter Note * Telephone Encounter - Tita Landry APRN.CNP - 03/03/2024 10:[address] [facility] Beth GORDON's phone call. States patient's [...] gain. Tita Landry APRN.CURT 03/03/2024 10:46 AM [facility]09-17-2024 Telephone encounter Note* Telephone Encounter - Sherie Payne RN - 03/03/2024 9:54 AM EDT Beth from [facility] [phone] She wanted to speak with Tita Rodriguez CNP. [facility]09-06-2024 Telephone encounter Note* Telephone Encounter - Patricia Bermudez RN - 02/21/2024 10:14 AM EDT spoke with [facility] RN Beth , pt notes he [...] pleurex at home on their own) PH [phone] [facility] RN. will review updates above with PRODUCT DEMONSTRATOR/MD and await any updates appt with dorita and margaret 03/17 and mamta 04/13 for followup Patricia Bermudez RN [facility]09-06-2024 Miscellaneous Notes* Telephone Encounter - Patricia Bermudez RN - 02/21/2024 10:14 [address] EDT spoke with [facility] RN Beth , pt notes he [...] pleurex at home on their own) PH [phone] [facility] RN. will review updates above with CURT/ and await any updates appt with dorita and margaret 03/17 and mamta 04/13 for followup Patricia Bermudez RN documented in this encounterUniversity Hospitals Beachwood Medical Center08-28-2024 History of Present illness Narrative* [...] excursion. Lungs clear to auscultation.+Pleurax catheter Heart: [place] normal. Precordium quiet. RRR. Normal HS with [...] 200 MG TABLET - Will see a steam conditioner operator on 04/13/2024 2. Primary hypertension - ICD9: [...] 2024 TIME: 11:22 AM documented in this encounterUniversity Hospitals Beachwood Medical Center08-27-2024 History of Present illness Narrative* [...] has no purpura and a negative Rumpel Poca sign. Pupils are equal at 2 mm [...] reviewing the medication list, performing clinical documentation, hhra-hj-bhbl history, the examination, counseling the patient, ordering medications, tests or procedures and communicating the results to this patient. An opportunity for this individual to ask questions was provided. Understanding of the information given, the conclusions of this visit and my recommendations were acknowledged by Mr. Raymundo. Yehuda Dial MD documented in this encounterUniversity Hospitals Beachwood Medical Center08-20-2024 NoteHNO ID: [id number] Author: TITA LANDRY APRN.CNP Service: ? Author Type: Nurse Practitioner Type: Progress Notes Filed: 02/05/2024 16:19 Note Text: Heart, Vascular and Thoracic Walker DEPARTMENT OF THORACIC SURGERY OUTPATIENT VISIT DATE February 04, 2024 OUTPATIENT VISIT TYPE ESTABLISHED PT NAME: Sav Cantu Kimberly [facility] NO: [id number] THORACIC SURGEON: Ronaldo Flood M.D. DATE OF SERVICE: 02/04/2024 PRINCIPAL DX: Pleural Effusion SURGICAL HX 11/20/2023: R VATS pleural biopsy, right airframe and power plant mechanic and doxycycline pleurodesis, right Pleurx catheter insertion, right 20Fr chest tube insertion Surgical Pathology 11/20/2023: FINAL DIAGNOSIS A. Right pleura, biopsy: - Chronic pleuritis with mesothelial hyperplasia (see comment). B. Right pleura, biopsy: - Acute organizing and chronic pleuritis (see comment). CT/ 11/22/2023 Diagnosis Comment A. The biopsy contains [...] reactive proliferation. Drs. Della Subramanian and [facility] have also reviewed this case and agree [...] patient underwent R VATS pleural biopsy, right airframe and power plant mechanic and doxycycline pleurodesis, right Pleurx catheter insertion, right 20Fr chest tube insertion. He was hospitalized 12/20/23 for anasarca, possible autoimmune disease, recurrent pleural effusion. Imaging did not reveal any acute findings. Patient was admitted to [facility] and started on lasix drip, improving anasarca and pleural effusion. Pleurx catheter was drained daily with significantly decreasing -[phone]. He was worked up for an autoimmune [...] denies any fevers, chills, (more content not included)...[facility] 02-04-2024 History of Present illness Narrative* Tita LandryLETICIA.PRODUCT DEMONSTRATOR - 02/04/2024 1:28 PM EDT Heart, Vascular and Thoracic Walker DEPARTMENT OF THORACIC SURGERY OUTPATIENT VISIT DATE February 04, 2024 OUTPATIENT VISIT TYPE ESTABLISHED PT NAME: Sav Raymundo [facility] NO: [id number] THORACIC SURGEON: Ronaldo Flood M.D. DATE OF SERVICE: 02/04/2024 PRINCIPAL DX: Pleural Effusion SURGICAL HX 11/20/2023: R VATS pleural biopsy, right airframe and power plant mechanic and doxycycline pleurodesis, right Pleurx catheter [...] reactive proliferation. [facility] and [...] 11/20/2023, patient underwent R VATS pleuralbiopsy, right airframe and power plant mechanic and doxycycline pleurodesis, right Pleurx catheter insertion, right 20Fr chest tube insertion. He was hospitalized 12/20/23 for anasarca, possible autoimmune disease, recurrent pleural effusion. Imaging did not reveal any acute findings. Patient was admitted to [facility] and started on lasix drip, improving anasarca and pleural effusion. Pleurx catheter was drained daily with significantly decreasing output [phone]. He was worked up for an autoimmune [...] He is scheduled to see PCP and Screen Operator next week. He has followed-up with local Embedded Software Architect, and was referred to Embedded Software Architect at [facility], which is scheduled on 03/17 with spirometry. Right pleurx drainage has significantly decreased since last visit; now less than 350cc/drainage every MWF. Right pleurx catheter with 150 cc of awilda drainage out in clinic today. IMPRESSION: 73 year old male with pmh significant for recurrent right pleural effusion s/p R VATS pleural biopsy, right airframe and power plant mechanic and doxycycline pleurodesis, right Pleurx catheter insertion, right 20Fr chest tube insertion on 11/20/[address] Flood. He was hospitalized 12/20/23 for anasarca, possible autoimmune disease, and recurrent pleural effusion. Imaging did not reveal any acute findings. Patient was admitted to [facility] and started on lasix drip, with improving anasarca and pleural effusion. Pleurx catheter was drained daily with significantly decreasing output [phone]. He was worked up for an autoimmune [...] information, and changes appropriately documented/adjusted. Brieanne Gris, BOARD CERTIFIED MUSIC THERAPIST.PRODUCT DEMONSTRATOR documented in this encounterUniversity Hospitals Beachwood Medical Center08-05-2024 Telephone encounter Note * Telephone Encounter - Jahaira Wood - 01/20/2024 3:35 PM EDT Received Pulmonary office note 01/15/24 from [facility] Record scanned in [employer] Jahaira Wood, traffic safety administrator [facility]08-05-2024 Miscellaneous Notes* Telephone Encounter - Jahaira Wood - 01/20/2024 3:35 PM EDT Received Pulmonary office note 01/15/24 from [facility] Record scanned in [employer] Jahaira Wood, traffic safety administrator documented in this encounterUniversity Hospitals Beachwood Medical Center07-31-2024 History of Present illness Narrative* [...] excursion. Lungs decreased BS in bases Heart: [place] normal. Precordium quiet. RRR. Normal HS with [...] 2024 TIME: 12:34 PM documented in this encounterUniversity Hospitals Beachwood Medical Center07-22-2024 History of Present illness Narrative* Yehuda Dial MD - 01/06/2024 5:01 PM EDT SUBJECTIVE: The chief complaint is right pleural effusion Mr. Raymundo relates that the visiting nurse comes to his house and drains 500 to 1000+ cc of pleural fluid every 2 days. He is concerned about taking a vacation to [place] for that reason. In addition, he complains [...] reviewing the medication list, performing clinical documentation, [id number]-bf-[id number] history, the examination, counseling the patient, ordering medications, tests or procedures and communicating the results to this patient. An opportunity for this individual to ask questions was provided. Understanding of the information given, the conclusions of this visit and my recommendations were acknowledged by Mr. Raymundo. Yehuda Dial MD documented in this encounterUniversity Hospitals Beachwood Medical Center07-22-2024 History of Present illness Narrative* Katerina Bravo APRN.PRODUCT DEMONSTRATOR - 01/06/2024 3:53 PM EDT Dear Ruma Oshea PA-C, Thank you for the referral of Sav Raymundo for evaluation. Chronic Cough E-consult - Chart Reviewed. Chronic Cough: x 04/2024 History of prior Pulm evaluation: yes; Dr. Clemente with [facility] Prior PFTs: unable to locate Prior Chest [...] locate. Will need to request records from [facility] where he process plant operator is. Please arrange the following testing to be done prior to visit: Spirometry with dilator if obstructed Nitric Oxide Katreina Bravo APRN Pulmonary Medicine 01/06/2024 documented in this encounterUniversity Hospitals Beachwood Medical Center07-22-2024 History of Present illness Narrative* Ruma Oshea PA-C - 01/06/2024 2:00 PM EDT Images from the original note were not included. [facility] - OUTPATIENT THORACIC SURGERY CLINIC NOTE PT NAME: Sav Raymundo [facility] NO: [id number] THORACIC SURGEON: Ronaldo Flood M.D. DATE OF SERVICE: 01/06/2024 PRINCIPAL DX: Pleural Effusion SURGICAL HX 11/20/2023: R VATS pleural biopsy, right airframe and power plant mechanic and doxycycline pleurodesis, right Pleurx catheter [...] any acute findings. Patient was admitted to [facility] and started on lasix drip, improving anasarca and pleural effusion. Pleurx catheter was drained daily with significantly decreasing output [phone]. He was worked up for an autoimmune [...] clinic. Patient does have follow up with steam conditioner operator today and process plant operator next week. Will fax over recent medical information to process plant operator. Patient also going on a bus trip [...] effusion s/p R VATS pleural biopsy, right airframe and power plant mechanic and doxycycline pleurodesis, right Pleurx catheter [...] other day. PLAN: - follow up with [facility] in 4 weeks with CXR; sooner if experiencing new or worsening symptoms - continue to drain pleurx every other day / when symptomatic - follow up with process plant operator Dr. Clemente - referral placed for chronic cough clinic - will send over OR report, pathology report, recent hospital discharge, recent CXR report, and today's clinic note to process plant operator Dr. Bryn Oshea PA-C documented in this encounterUniversity Hospitals Beachwood Medical Center07-22-2024 NoteHNO ID: [id number] Author: RUMA OSHEA PA-C Service: ? Author Type: Physician Docking Saw Operator Type: Progress Notes Filed: 01/06/2024 14:58 Note Text: [facility] - OUTPATIENT THORACIC SURGERY CLINIC NOTE PT NAME: Sav Raymundo [facility] NO: [id number] THORACIC SURGEON: Ronaldo Flood M.D. DATE OF SERVICE: 01/06/2024 PRINCIPAL DX: Pleural Effusion SURGICAL HX 11/20/2023: R VATS pleural biopsy, right airframe and power plant mechanic and doxycycline pleurodesis, right Pleurx catheter [...] any acute findings. Patient was admitted to [facility] and started on lasix drip, improving anasarca and pleural effusion. Pleurx catheter was drained daily with significantly decreasing output [phone]. He was worked up for an autoimmune [...] clinic. Patient does have follow up with steam conditioner operator today and process plant operator next week. Will fax over recent medical information to process plant operator. Patient also going on a bus trip [...] effusion s/p R VATS pleural biopsy, right airframe and power plant mechanic and doxycycline pleurodesis, right Pleurx catheter insertion, right 20Fr chest tube insertion on 11/20/[address] Flood. Patient overall doing well from a clinical standpoint. CXR from today is still pendin (more content not included)...[facility]07-22-2024 History of Present illness Narrative* Sherie Carrion [...] PATIENT PRESENTS WITH AN IMPLANTABLE OR ATTACHED METALSMITH: No RADIOLOGY DEPARTMENT: General X-ray: Exam(s) Completed: Chest X-Ray PERIPHERAL IV DATA: Not applicable SIGNED BY: IMAN oG) January 06, 2024 1:08 PM documented in this encounterUniversity Hospitals Beachwood Medical Center07-22-2024 NoteHNO ID: [id number] Author: SHERIE CARRION RT(R) Service: Radiology Author [...] PATIENT PRESENTS WITH AN IMPLANTABLE OR ATTACHED METALSMITH: No RADIOLOGY DEPARTMENT: General X-ray: Exam(s) Completed: Chest X-Ray PERIPHERAL IV DATA: Not applicable SIGNED BY: RT Abbi(R) January 06, 2024 1:08 PMSaint Margaret'S [facility]07-11-2024 NoteHNO ID: [id number] Author: LUPE BAUER RN Service: Care Management [...] Name of Caregiver: [facility] Transportation Arrangements Transportation Arrangements: Car Discharge Information Row Name ED to Hosp-Admission (Current) from 12/20/[address] Care Agency [facility] Start of Care -- agency will contact patient Spouse at bedside to transport home. DC arrangements confirmed with patient, spouse, [facility], and bedside nurse. 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 Nuclear Med Report: [id number] PLANAR and SPECT: Myocardial imaging of the chest with CT attenuation correction was performed at 3 hours post IV injection of Tc-99m Pyrophosphate. See administered doses below. 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 CT Dose R (more content not included)...[facility]07-10-2024 NoteHNO ID: [id number] Author: RAFIA TOVAR RT(R) Service: Nuclear Medicine [...] PATIENT PRESENTS WITH AN IMPLANTABLE OR ATTACHED METALSMITH: No CREATININE: Creatinine Date Value Ref Range [...] safety can be found using this link: [email or web address] 20Diagnostic%20Nuclear%20Medicine%20Procedures.pdf SIGNATURE: RT Seema(R) PATIENT NAME: Sav Raymundo DATE: December 25, 2023 TIME: 11:01 AM PAGER/CONTACT #:[facility]07-09-2024 NoteHNO ID: [id number] Author: JOSE ANTONIO HOPPER MD Service: Family [...] MD DATE: December 24, 2023 TIME: 8:05 [facility]07-08-2024 NoteHNO ID: [id number] Author: JOSE ANTONIO HOPPER MD Service: Family [...] MD DATE: December 23, 2023 TIME: 4:11 PMSaint Margaret'S [facility]07-08-2024 NoteHNO ID: [id number] Author: LUPE BAUER RN Service: Care Management [...] is active with [facility] for assisted and pleurx supplies. Plan home with resumption of [facility]. Will need home care orders for SN prior to discharge. CM following. SIGNATURE: Lupe Bauer RN PATIENT NAME: Sav Raymundo DATE: December 23, 2023 TIME: 2:04 PM PAGER/CONTACT #: [phone] NoteHNO ID: [id number] Author: RMUA OSHEA PA-C Service: Thoracic Surgery Author Type: Physician Docking Saw Operator Type: Plan of Care Filed: 12/23/2023 07:53 Note Text: PLEASE PAGE [phone] WITH SURGICAL QUESTIONS OR CONCERNS. (This includes issues with chest tubes, surgical drains, feeding tubes, incisions or changes in clinical status). Thoracic Surgery - Plan of Care HPI: Sav Raymundo is a 73 y/o male referred by Alpa Oliva CNP for an opinion regarding management of recurrent right pleural effusion. 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 biopsy, right airframe and power plant mechanic and doxycycline pleurodesis, right Pleurx catheter [...] Dwight Oshea PA-C 12/23/2023 7:48 AM PAGER [phone] [facility]07-07-2024 NoteHNO ID: [id number] Author: JOSE ANTONIO HOPPER MD Service: [facility] Author Type: Physician Type: Progress [...] pain especially on changing position PRIMARY SERVICE: [facility] OBJECTIVE PHYSICAL EXAM: Patient Vitals [...] MD DATE: December 22, 2023 TIME: 11:01 [facility]07-06-2024 NoteHNO ID: [id number] Author: TRACY ROBLES LSW Service: Care Management Author Type: Artificial Inseminator Type: Care Mgt Initial Assessment Filed: 12/21/2023 13:04 Note Text: CARE MANAGEMENT: ASSESSMENT AND DISCHARGE PLAN SERVICE DATE: December 21, 2023 SERVICE TIME: 1:02 PM PCP: Yuli Mariscal DO Primary Contact: Extended Emergency Contact Information Primary Emergency Contact: Virgen Raymundo (HCPOA) Address: [address] [place] [address] [place] [address] [place] Mobile Relation: Spouse Secondary Emergency Contact: Kimberly,(1st alt HCPOADeysi Espino Address: [address] [place], [place] [id number] Mobile Relation: Brother Admission Status: Inpatient Insurance Provider: [employer] MED[employer]ARE PPO Discharge Planning requested by: Per Department Practice Potential Transition Plans To Be Determined;Home Care Advance Directives Current Advance Directive: Health Care Power of [place];Living Will In Chart: Yes Current Living Arrangements and Support Lives with: Spouse/significant other Type of Residence: Support: How do you manage to accomplish the following: Independent: Ambulation Current Services/Equipment Current Post-Acute Service(s): Skilled Home Care Discharge Planning Patient Goal(s): Be able to go home, General wellness [place] of Choice Explained: [place] of Choice Given: Yes Level of Care [...] Patient active with [facility]- provides PE supplies- referral placed. Spouse aware floor CM to follow for dc needs NEED [facility] ORDER. SIGNATURE: BERTA Benson PATIENT NAME: Sav Raymundo DATE: December 21, 2023 TIME: 1:02 PM CONTACT #: .[facility]07-05-2024 NoteHNO ID: [id number] Author: TITA LANDRY APRN.CNP Service: ? Author Type: Nurse Practitioner Type: Progress Notes Filed: 01/19/2024 21:56 Note Text: Heart, Vascular and Thoracic Walker DEPARTMENT OF THORACIC SURGERY OUTPATIENT VISIT DATE December 20, 2023 OUTPATIENT VISIT TYPE ESTABLISHED PT NAME: Sav Raymundo CLINIC NO: [id number] THORACIC SURGEON: Ronaldo Flood M.D. DATE OF SERVICE: 12/20/2023 PRINCIPAL DX: Pleural Effusion SURGICAL HX 11/20/2023: R VATS pleural biopsy, right airframe and power plant mechanic and doxycycline pleurodesis, right Pleurx catheter [...] reports pain along bot (more content not included)...[facility]07-05-2024 History of Present illness Narrative* Tita Landry APRN.PRODUCT DEMONSTRATOR - 12/20/2023 1:43 PM EDT Heart, Vascular and Thoracic Walker DEPARTMENT OF THORACIC SURGERY OUTPATIENT VISIT DATE December 20, 2023 OUTPATIENT VISIT TYPE ESTABLISHED PT NAME: Sav Raymundo [facility] NO: [id number] THORACIC SURGEON: Ronaldo Flood M.D. DATE OF SERVICE: 12/20/2023 PRINCIPAL DX: Pleural Effusion SURGICAL HX 11/20/2023: R VATS pleural biopsy, right airframe and power plant mechanic and doxycycline pleurodesis, right Pleurx catheter [...] reactive proliferation. Drs. Della Subramanian and [facility] have also reviewed this case and agree [...] effusion s/p R VATS pleural biopsy, right airframe and power plant mechanic and doxycycline pleurodesis, right Pleurx catheter [...] documented/adjusted. Tita Landry APRN.CURT documented in this encounterUniversity Hospitals Beachwood Medical Center07-02-2024 Miscellaneous Notes* Telephone Encounter - Pearl Lopez I, RN - 12/17/2023 9:39 AM EDT Images from the original note were not included. [facility] [place] Phone Encounter DATE of SERVICE: 12/17/2023 TIME of SERVICE: 9:39 AM Status: Non-urgent, needs attention Service/Provider: Thoracic Surgery Ronaldo Flood M.D. Reason for call: Other Issue Contact information: [phone] Resolution: Sent to [employer] Comments: Received call from [facility] Nurse. States she saw patient yesterday. [...] he can wait to be seen thisfriday. [facility] will be there tomorrow. Please advise if any further recommendations Pearl Lopez RN Date of Resolution: 12/17/2023 Time of Resolution 9:39 AM documented in this encounterUniversity Hospitals Beachwood [facility] Center07-02-2024 Telephone encounter Note * Telephone Encounter - Pearl Lopez I, RN - 12/17/2023 9:39 AM EDT Images from the original note were not included. [facility] Phone Encounter DATE of SERVICE: 12/17/2023 TIME of SERVICE: 9:39 AM Status: Non-urgent, needs attention Service/Provider: Thoracic Surgery Ronaldo Flood M.D. Reason for call: Other Issue Contact information: [phone] Resolution: Sent to [employer] Comments: Received call from [facility] Nurse. States she saw patient yesterday. [...] he can wait to be seen thisfriday. [facility] will be there tomorrow. Please advise if any further recommendations Pearl Lopez RN Date of Resolution: 12/17/2023 Time of Resolution 9:39 AM [facility]06-28-2024 NoteHNO ID: [id number] Author: TITA LANDRY APRN.CNP Service: ? Author Type: Nurse Practitioner Type: Progress Notes Filed: 01/16/2024 22:44 Note Text: Heart, Vascular and Thoracic Walker DEPARTMENT OF THORACIC SURGERY OUTPATIENT VISIT DATE December 13, 2023 OUTPATIENT VISIT TYPE ESTABLISHED PT NAME: Adams E [facility] NO: [id number] THORACIC SURGEON: Ronaldo Flood M.D. DATE OF SERVICE: 12/13/2023 PRINCIPAL DX: Pleural Effusion SURGICAL HX 11/20/2023: R VATS pleural biopsy, right airframe and power plant mechanic and doxycycline pleurodesis, right Pleurx catheter insertion, right 20Fr chest tube insertion Surgical Pathology 11/20/2023: FINAL DIAGNOSIS A. Right pleura, biopsy: - Chronic pleuritis with mesothelial hyperplasia (see comment). B. Right pleura, biopsy: - Acute organizing and chronic pleuritis (see comment). CT/ 11/22/2023 Diagnosis Comment A. The biopsy contains [...] effusion s/p R VATS pleural biopsy, right airframe and power plant mechanic and doxycycline pleurodesis, right Pleurx catheter insertion, right 20Fr chest tube insertion on 11/20/[address] Flood. Patient overall doing (more content not included)...[facility]06-28-2024 History of Present illness Narrative* Tita Landry APRN.PRODUCT DEMONSTRATOR - 12/13/2023 1:27 PM EDT Heart, Vascular and Thoracic Walker DEPARTMENT OF THORACIC SURGERY OUTPATIENT VISIT DATE December 13, 2023 OUTPATIENT VISIT TYPE ESTABLISHED PT NAME: Sav Raymundo CLINIC NO: [id number] THORACIC SURGEON: Ronaldo Flood M.D. DATE OF SERVICE: 12/13/2023 PRINCIPAL DX: Pleural Effusion SURGICAL HX 11/20/2023: R VATS pleural biopsy, right airframe and power plant mechanic and doxycycline pleurodesis, right Pleurx catheter insertion, right 20Fr chest tube insertion Surgical Pathology 11/20/2023: FINAL DIAGNOSIS A. Right pleura, biopsy: - Chronic pleuritis with mesothelial hyperplasia (see comment). B. Right pleura, biopsy: - Acute organizing and chronic pleuritis (see comment). CT/ 11/22/2023 Diagnosis Comment A. The biopsy contains [...] effusion s/p R VATS pleural biopsy, right airframe and power plant mechanic and doxycycline pleurodesis, right Pleurx catheter insertion, right 20Fr chest tube insertion on 11/20/[address] Flood. Patient overall doing well from a clinical standpoint. CXR from today is still pending; to my eye, shows stable right pleural effusion. Patient continues to drain large amounts from pleurx catheter every other day. PLAN: -Follow-up in 1 week with CXR and PRODUCT DEMONSTRATOR visit; sooner if experiencing new/worsening clinical symptoms -Continue to drain pleurx every other day Part of this note was copied from my previous note, all content has been individually and thoroughly reviewed, updated as necessary, patient assessed with updated information, and changes appropriately documented/adjusted. Tita Landry APRN.CURT documented in this encounterUniversity Hospitals Beachwood Medical Center06-18-2024 Telephone encounter Note * Telephone Encounter - Lilia Ornelas - 12/03/2023 4:42 PM EDT Confirmed date and time of apts w/ patient and his via phone. Both have access to MyChart. PF 12/13/2023 at [place] [facility] at 1:30pm Est 1 week follow up w/ Tita [facility] at 2pm Per staff message from [facility]: please schedule patient for follow-up with me with CXR in 1 week [facility]06-18-2024 Miscellaneous Notes* Telephone Encounter - Lilia Ornelas - 12/03/2023 4:42 PM EDT Confirmed date and time of apts w/ patient and his via phone. Both have access to MyChart. PF 12/13/2023 at [place] [facility] at 1:30pm Est 1 week follow up w/ Tita [facility] at 2pm Per staff message from [facility]: please schedule patient for follow-up with me with CXR in 1 week documented in this encounterUniversity Hospitals Beachwood Medical Center06-18-2024 Nurse Note* Jessica Enriquez RN - 12/03/2023 1:47 PM EDT Patient stated he was having SOB. Pleur x drained yesterday for 1075ml. Attempted to drain pleur x today no drainage present. Applied dressing. Jessica Enriquez RN [facility]06-18-2024 Nurse Note* Jessica Enriquez RN - 12/03/2023 1:47 PM EDT Patient stated he was having SOB. Pleur x drained yesterday for 1075ml. Attempted to drain pleur x today no drainage present. Applied dressing. Jessica Enriquez, RN documented in this encounterUniversity Hospitals Beachwood Medical Center06-18-2024 NoteHNO ID: [id number] Author: TITA LANDRY APRN.CNP Service: ? Author Type: Nurse Practitioner Type: Progress Notes Filed: 12/30/2023 22:10 Note Text: Heart, Vascular and Thoracic Walker DEPARTMENT OF THORACIC SURGERY OUTPATIENT VISIT DATE December 03, 2023 OUTPATIENT VISIT TYPE ESTABLISHED PT NAME: Sav Cantu [facility] NO: [id number] THORACIC SURGEON: Ronaldo Flood M.D. DATE OF SERVICE: 12/03/2023 PRINCIPAL DX: Recurrent Right Pleural Effusion SURGICAL HX 11/20/2023: R VATS pleural biopsy, right airframe and power plant mechanic and doxycycline pleurodesis, right Pleurx catheter insertion, right 20Fr chest tube insertion Surgical Pathology 11/20/2023: Component FINAL DIAGNOSIS A. Right pleura, biopsy: - Chronic pleuritis with mesothelial hyperplasia (see comment). B. Right pleura, biopsy: - Acute organizing and chronic pleuritis (see comment). CT/ 11/22/2023 Diagnosis Comment A. The biopsy contains [...] patient underwent R VATS pleural biopsy, right airframe and power plant mechanic and doxycycline pleurodesis, right Pleurx catheter [...] States pleurx was last drained yesterday by [facility] with 1,025 cc out. Did not drain in clinic today. Reviewed final pathology results which showshronic pleuritis with mesothelial hyperplasia, with no definitive evidence of malignancy. Patient's voices frustration that the cause of the patient's recurrent effusion is still (more content not included)...[facility]06-[facility] History of Present illness Narrative* Tita Landry, LETICIA.PRODUCT DEMONSTRATOR - 12/03/2023 1:02 PM EDT Heart, Vascular and Thoracic Walker DEPARTMENT OF THORACIC SURGERY OUTPATIENT VISIT DATE December 03, 2023 OUTPATIENT VISIT TYPE ESTABLISHED PT NAME: Sav Raymundo CLINIC NO: [id number] THORACIC SURGEON: Ronaldo Flood M.D. DATE OF SERVICE: 12/03/2023 PRINCIPAL DX: Recurrent Right Pleural Effusion SURGICAL HX 11/20/2023: R VATS pleural biopsy, right airframe and power plant mechanic and doxycycline pleurodesis, right Pleurx catheter insertion, right 20Fr chest tube insertion Surgical Pathology 11/20/2023: Component FINAL DIAGNOSIS A. Right pleura, biopsy: - Chronic pleuritis with mesothelial hyperplasia (see comment). B. Right pleura, biopsy: - Acute organizing and chronic pleuritis (see comment). CT/ 11/22/2023 Diagnosis Comment A. The biopsy contains [...] 11/20/2023, patient underwent R VATS pleuralbiopsy, right airframe and power plant mechanic and doxycycline pleurodesis, right Pleurx catheter [...] States pleurx was last drained yesterday by [facility] with 1,025 cc out. Did not [...] effusion s/p R VATS pleural biopsy, right airframe and power plant mechanic and doxycycline pleurodesis, right Pleurx catheter insertion, right 20Fr chest tube insertion on 11/20/[address] Flood. Patient overall doing well from a clinical standpoint. CXR from today is still pending; to my eye, shows stable right pleural effusion. Patient continues to drain large amounts from pleurx catheter every other day. PLAN: -Follow-up in 1 week with CXR and PRODUCT DEMONSTRATOR visit; sooner if experiencing new/worsening clinical symptoms -Continue to drain pleurx every other day Part of this note was copied from my previous note, all content has been individually and thoroughly reviewed, updated as necessary, patient assessed with updated information, and changes appropriately documented/adjusted. Tita Landry APRN.PRODUCT DEMONSTRATOR documented in this encounterUniversity Hospitals Beachwood Medical Center06-18-2024 History of Present illness Narrative* [...] PATIENT PRESENTS WITH AN IMPLANTABLE OR ATTACHED METALSMITH: No RADIOLOGY DEPARTMENT: General X-ray: Exam(s) Completed: Chest X-Ray PERIPHERAL IV DATA: Not applicable SIGNED BY: RT Betty(Sandee) December 03, 2023 12:26 PM documented in this encounterUniversity Hospitals Beachwood Medical Center06-18-2024 NoteHNO ID: [id number] Author: ISAMAR GUEVARA RT(R) Service: Radiology Author [...] PATIENT PRESENTS WITH AN IMPLANTABLE OR ATTACHED METALSMITH: No RADIOLOGY DEPARTMENT: General X-ray: Exam(s) Completed: Chest X-Ray PERIPHERAL IV DATA: Not applicable SIGNED BY: RT Betty(Sandee) December 03, 2023 12:26 PMSaint Margaret'S [facility]06-14-2024 History of Present illness Narrative* Tita Landry APRN.PRODUCT DEMONSTRATOR - 11/29/2023 3:00 PM EDT Heart, Vascular and Thoracic Walker DEPARTMENT OF THORACIC SURGERY OUTPATIENT VISIT DATE November 29, 2023 OUTPATIENT VISIT TYPE ESTABLISHED PT NAME: Sav Raymundo CLINIC NO: [id number] THORACIC SURGEON: Ronaldo Flood M.D. DATE OF SERVICE: 11/29/2023 PRINCIPAL DX: Pleural Effusion SURGICAL HX 11/20/2023: R VATS pleural biopsy, right airframe and power plant mechanic and doxycycline pleurodesis, right Pleurx catheter [...] 11/20/2023, patient underwent R VATS pleuralbiopsy, right airframe and power plant mechanic and doxycycline pleurodesis, right Pleurx catheter [...] (dark awilda with foam) 11/26: 450 cc (lab assistant than last time with foam) I drained [...] effusion s/p R VATS pleural biopsy, right airframe and power plant mechanic and doxycycline pleurodesis, right Pleurx catheter [...] with KDUR supplementation for edema Tita Landry APRN.PRODUCT DEMONSTRATOR documented in this encounterUniversity Hospitals Beachwood Medical Center06-14-2024 NoteHNO ID: [id number] Author: TITA LANDRY APRN.PRODUCT DEMONSTRATOR Service: ? Author Type: Nurse Practitioner Type: Progress Notes Filed: 12/30/2023 21:20 Note Text: Heart, Vascular and Thoracic Walker DEPARTMENT OF THORACIC SURGERY OUTPATIENT VISIT DATE November 29, 2023 OUTPATIENT VISIT TYPE ESTABLISHED PT NAME: Sav Raymundo CLINIC NO: [id number] THORACIC SURGEON: Ronaldo Flood M.D. DATE OF SERVICE: 11/29/2023 PRINCIPAL DX: Pleural Effusion SURGICAL HX 11/20/2023: R VATS pleural biopsy, right airframe and power plant mechanic and doxycycline pleurodesis, right Pleurx catheter [...] patient underwent R VATS pleural biopsy, right airframe and power plant mechanic and doxycycline pleurodesis, right Pleurx catheter [...] (dark awilda with foam) 11/26: 450 cc (lab assistant than last time with foam) I drained 790 cc of serosanguinous drainage in clinic today. Recommend draining pleurx daily until output slows down, but states she is unable to and [facility] comes every other day. Reviewed with [...] effusion s/p R VATS pleural biopsy, right airframe and power plant mechanic and doxycycline pleurodesis, right Pleurx catheter [...] with KDUR supplementation for edema Tita Landry, LETICIA.[facility]05-28-2024 History of Present illness Narrative* Ronaldo [...] . Huy Robles RN documented in this encounterUniversity Hospitals [facility]05-28-[facility] Nurse Note* Huy Robles RN - 11/12/2023 2:27 PM EDT PATIENT EDUCATION The following was evaluated: Motivation To Learn: Interested Family/Significant Other Support: High - Very involved in pt care Cognitive Ability: Alert and oriented Patient Learns Best By: Multiple Methods The Following Influencing Factors Were Barriers To This Education Session: No barriers Lube Attendant Present: Not Applicable The Following Physical Limitations [...] Robles RN. In Department of THORACIC CLINIC. [facility]05-28-[facility] Nurse Note* Huy Robles RN - 11/12/2023 2:27 PM EDT PATIENT EDUCATION The following was evaluated: Motivation To Learn: Interested Family/Significant Other Support: High - Very involved in pt care Cognitive Ability: Alert and oriented Patient Learns Best By: Multiple Methods The Following Influencing Factors Were Barriers To This Education Session: No barriers Lube Attendant Present: Not Applicable The Following Physical Limitations [...] Department of THORACIC CLINIC. documented in this encounterUniversity Hospitals Beachwood [facility] Center05-28-2024 History of Present illness Narrative* [...] PATIENT PRESENTS WITH AN IMPLANTABLE OR ATTACHED METALSMITH: No CREATININE: Creatinine Date Value Ref Range [...] Discontinued PROCEDURE TYPE: NM Stress: 11.8 mCi [id number] was administered IV for Rest Imaging at 10:18AM by GRECIA BARAJAS. 41.8 mCi [id number] was administered IV for Stress Imaging at 1118 by Mariam Patterson ADMINISTRATION TIME: PATIENT DISCHARGED TO: Ambulatory patient, left [place] department area. A Diagnostic radioactive procedure has [...] ALLERGIES: Reviewed and unchanged MEDICATIONS REVIEWED BY: Time Signal Wirer PROCEDURE TYPE: NM STRESS: 0.4 mg of Lexiscan was administered IV at 1018 by Vibha Dempsey RN . Reversal agent used: None. Expiration date: 06/2025 Lot#: [id number] IV SITE: Ambulatory: A Saline lock was inserted per protocol POST EXAM PIV STATUS: Discontinued PATIENT DISCHARGED TO: Ambulatory patient, left [place] department area. A Diagnostic radioactive procedure has taken place, with no further precautions necessary other than routine body substance precautions. More information regarding radiation safety can be found usingthis link: [email or web address] SIGNATURE: Vibha Dempsey RN PATIENT NAME: Sav Raymundo DATE: November 12, 2023 TIME: 11:14 AM PAGER/CONTACT #: documented in this encounterUniversity Hospitals Beachwood [facility] Center05-28-2024 History of Present illness Narrative* [...] PATIENT PRESENTS WITH AN IMPLANTABLE OR ATTACHED METALSMITH: No RADIOLOGY DEPARTMENT: General X-ray: Exam(s) Completed: Chest X-Ray PERIPHERAL IV DATA: Not applicable SIGNED BY: RT Hudson(R) November 12, 2023 8:12 AM documented in this encounterUniversity Hospitals Beachwood [facility] Center05-23-2024 Telephone encounter Note * Telephone [...] 6/5 pt voiced understanding Patricia Bermudez RN [facility]05-23-2024 Miscellaneous Notes* Telephone Encounter - [...] understanding Patricia Bermudez RN documented in this encounterUniversity Hospitals Beachwood [facility] Center05-13-2024 History of Present illness Narrative* [...] this time. Patricia Bermudez MSN, RN Nurse Retort Press Operator Thoracic Surgery [facility] * Patricia Bermudez RN - 10/25/2023 11:43 AM EDT October 25, 2023 11:43 AM left message on patient mobile phone to discuss surgical planning, await call back. Tentative plans for: OR 11/20/2023 pending patient acceptance Patricia Bermudez RN documented in this encounterUniversity Hospitals Beachwood [facility] Center05-10-2024 History of Present illness Narrative* Ronaldo Flood MD, PhD - 10/25/2023 10:26 AM EDT [facility] STAFF PHYSICIAN NOTE OF PERSONAL INVOLVEMENT IN [...] THORACIC SURGERY OUTPATIENT CONSULT NOTE Sav Raymundo [id number] Requesting Provider: Dr. Calin Clemente Thoracic Physician: [...] hyperlipidemia, gout, GERD referred by Dr. Calin Clemetne for an opinion regarding management of Pleural [...] by: Mark Malone MD documented in this encounterUniversity Hospitals Beach[facility]05-06-2024 Telephone encounter Note * Telephone Encounter - Jahaira Wood - 10/21/2023 11:41 AM EDT Received ED visit notes 10/18/23 from [facility] Records scanned in [facility] CTA Chest and Chest XR imaging requested from [facility] Jahaira Wood, traffic safety administrator [facility]05-06-2024 Miscellaneous Notes* Telephone Encounter - Jahaira Wood - 10/21/2023 11:41 AM EDT Received ED visit notes 10/18/23 from [facility] Records scanned in [facility] CTA Chest and Chest XR imaging requested from [facility] Jahairara Wood traffic safety administrator * Telephone Encounter - Patricia Bermudez RN - 10/21/2023 10:08 AM EDT Images from the original note were not included. Thoracic Surgery Consultation - review of records for appointment scheduling Received medical records from the office of Calin Clemente [address] [place], [place] [id number] Patient is being referred to Ronaldo Flood MD, PhD by Calin Clemente for Pleural Effusion Outside hospital records scanned Pathology: Procedures: right thoracentesis 10/01/23 520ml thoracentesis 09/04/[address] right [address] chest done at [place] [facility] for Shortness of breath - pt [...] Flood M.D., Ph. D. by Calin Clemente [address] [place], [place] [id number] Patient diagnosis/Reason for consult: Pleural Effusion Recurrent Referral triage process explained: Yes Patient will receive a call from Thoracic NPM after triage review with surgeon to discuss any additional testing and/or consults that will be scheduled. Pt will then receive a call from our scheduling office for scheduling. Please call pt at [phone]. Patient was informed consultation could be at [place] or [facility] [place]: No Patient Registration: Registration complete/updated: yes Insurance card(s) scanned in [facility] with in the past year: Yes: Date: 10/16/23 Pt's MyChart is inactive. Ok to communicate to pt via [employer] not asked Medical Records: Records in [facility] (internal CC records): No Imaging in Epic (internal CC records): No Care Everywhere - queried yes, downloaded Yes Linked Outside Organizations (list): [facility] Records Requested: no Date: N/A Outside Hospital(s) requested records from: Dr. Clemente Received: yes Uploaded: Yes. Waiting on additional records: No. Missing (list): N/A OSH Pathology Slides Requested: no Date: N/A Outside Hospital(s) slides requested from: n/a OS Radiology Imaging Requested: yes Date: October 16, 2023 Outside Hospital(s) requested imaging from: [facility]. Imaging will be received via Electronic Transfer Received: Yes Imaging uploaded: Yes Waiting on additional: No Missing (list): n/a Additional providers added to Care Teams: Yes Additional Notes/Comments: Pt's spouse states pt is waiting to be scheduled for another CT Chest locally. Enct routed to: Margaret Vasquez NPM for Triage Jahaira Wood, traffic safety administrator documented in this encounterUniversity Hospitals Beachwood [facility] Center05-06-2024 Telephone encounter Note * Telephone Encounter - Patricia Bermudez RN - 10/21/2023 10:08 AM EDT Images from the original note were not included. Thoracic Surgery Consultation - review of records for appointment scheduling Received medical records from the office of Calin Clemente [address] [place] [address] Patient is being referred to Ronaldo Flood MD, PhD by Calin Clemente for Pleural Effusion Outside hospital records scanned Pathology: Procedures: right thoracentesis 10/01/23 520ml thoracentesis 09/04/23 right [address] chest done at [place] [facility] for Shortness of breath - pt [...] pt aware and agreeable Patricia Bermudez, RN [facility]05-01-2024 Telephone encounter Note* Telephone Encounter - Jahaira Wood - 10/16/2023 9:16 AM EDT LOCAL PATIENT Received Fax from Dr. Calin Clemente Sav Raymundo is being referred to Ronaldo Flood M.D., Ph. D. by Calin Clemente [address] [place] [address] Patient diagnosis/Reason for consult: Pleural Effusion Recurrent Referral triage process explained: Yes Patient will receive a call from Thoracic NPM after triage review with surgeon to discuss any additional testing and/or consults that will be scheduled. Pt will then receive a call from our scheduling office for scheduling. Please call pt at [phone]. Patient was informed consultation could be at [place] or [facility]: No Patient Registration: Registration complete/updated: yes Insurance card(s) scanned in [facility] with in the past year: Yes: Date: 10/16/23 Pt's [employer] is inactive. Ok to communicate to pt via [employer] not asked Medical Records: Records in [facility] (internal CC records): No Imaging in [facility] (internal CC records): No Care Everywhere - queried yes, downloaded Yes Linked Outside Organizations (list): [facility] Records Requested: no Date: N/A Outside Hospital(s) requested records from: Dr. Clemente Received: yes Uploaded: Yes. Waiting on additional records: No. Missing (list): N/A OSH Pathology Slides Requested: no Date: N/A Outside Hospital(s) slides requested from: n/a OS Radiology Imaging Requested: yes Date: October 16, 2023 Outside Hospital(s) requested imaging from: [facility]. Imaging will be received via Electronic Transfer Received: Yes Imaging uploaded: Yes Waiting on additional: No Missing (list): n/a Additional providers added to Care Teams: Yes Additional Notes/Comments: Pt's spouse states pt is waiting to be scheduled for another CT Chest locally. Enct routed to: Yes, Margaret NPM for Triage Jahaira Wood, traffic safety administrator [facility]04-30-2024 Telephone encounter Note* Telephone Encounter - Sol Desouza - 10/15/2023 4:06 PM EDTSummary: CARDIO THORACIC SURG Patient: Sav Raymundo Date of : 1950 Patient phone number: [phone] Referring Provider for the encounter: Calin Clemente Requesting Provider: Dr Ronaldo Flood Reason for requesting visit (RFV/signs and symptoms/diagnosis): pleural effusion recurment . Person calling: Via RP FAX Return call to: self Medical Records/Insurance Card scanned into [employer]: Comments: [facility]04-30-2024 Miscellaneous Notes* Telephone Encounter - Sol Desouza - 10/15/2023 4:06 PM EDTSummary: CARDIO THORACIC SURG Patient: Sav Raymundo Date of : 1950 Patient phone number: [phone] Referring Provider for the encounter: Calin Clemente Requesting Provider: Dr Ronaldo Flood Reason for requesting visit (RFV/signs and symptoms/diagnosis): pleural effusion recurment . Person calling: Via RP FAX Return call to: self Medical Records/Insurance Card scanned into [employer]: Comments: documented in this encounterUniversity Hospitals [facility]02-06-2024 Evaluation note* Encounter Date Diagnosis [...] continue exercise to achieve/maintain a normal BMI. [facility] Other 01-24-2024 Evaluation note* Encounter Date Diagnosis Assessment Notes Treatment Notes Treatment Clinical Notes Jun, Subacute cough (ICD-10 - R05.2) [facility] Other 01-21-2024 Evaluation note* Encounter Date Diagnosis Assessment Notes Treatment Notes Treatment Clinical Notes Jun, Subacute cough (ICD-10 - R05.2) [facility] Other 01-09-2024 Evaluation note* Encounter Date Diagnosis Assessment Notes Treatment Notes Treatment Clinical Notes Jun, Primary hypertension (ICD-10 - I10) [facility] Other 11-21-2023 Evaluation note* Encounter Date Diagnosis Assessment Notes Treatment Notes Treatment Clinical Notes Apr, Acute bronchitis due to other specified organisms (ICD-10 - J20.8) [facility] Other 11-08-2023 Evaluation note* Encounter Date Diagnosis Assessment Notes Treatment Notes Treatment Clinical Notes Apr, Primary hypertension (ICD-10 - I10) [facility] Other 11-06-2023 Evaluation note* Encounter Date Diagnosis [...] specific antigen) (ICD-10 - Z12.5) Yealry PSA [facility] Other 11-01-2023 Evaluation note* Encounter Date Diagnosis Assessment Notes Treatment Notes Treatment Clinical Notes Apr, Screening PSA (prostate specific antigen) (ICD-10 - Z12.5) Apr, Hyperlipidemia type II (ICD-10 - E78.01) Apr, Gastro-esophageal reflux disease with esophagitis, without bleeding (ICD-10 - K21.00) Apr, Fatigue, unspecified type (ICD-10 - R53.83) Apr, High risk medication use (ICD-10 - Z79.899) [facility] Other 08-28-2023 History of Present illness Narrative* Margie Edouard, - 02/11/2023 2:00 PM EDT Telehealth Visit Via Phone Call Patient: Sav Raymundo Date of : 1950 (72 y.o. male) Patient Patient Location: [address] [place] [address] [place] [address] Provider Location: [facility] I discussed risks, benefits and alternatives [...] there are inherent diagnostic limitations compared to dplh-ix-nufo evaluations. We elected toproceed with the telephone [...] expedite correspondence this note was generated by [employer] voice recognition software. Somegrammatical or spelling errors may occur using the system. documented in this [id number] History of Present illness Narrative* Nena Huff, DO - 01/16/2023 10:35 AM EDT [facility] [address] [place], [place] [address] Patient Name: Sav Raymundo Patient Age: 72 [...] KNEE ARTHROPLASTY; Surgeon: Karthik Calloway MD; Location: [facility] OR; Service: ARTHROPLASTY KNEE TOTAL Right 06/25/2016 Procedure: RIGHT TOTAL KNEE ARTHROPLASTY ; Surgeon: Karthik Calloway MD; Location: [facility] OR; Service: BASAL CELL CARCINOMA [...] mouth every morning . vit A-vit C-vit R-taig-ccbssm [id number] gsai-bt-oksk Tab Take 1 tablet by mouth every [...] expedite correspondence this note was generated by [employer] voice recognition software. Somegrammatical or spelling errors may occur using the system. 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 IMAGING: Please see dictated report. ASSESSMENT: Left hallux rigidus Left metatarsalgia PLAN: I performed a left first MTP joint injection at today's visit. Please see separate procedure note. I recommended that we proceed with custom orthotics with a Eaton's extension, built-in metatarsal pad. Order was [facility] to [facility] orthopedics. [facility] We discussed the fact that he would have to be nonweightbearing following the procedure. Thepatient would like to hold off on any surgery at today's visit. We will see him back in 6 weeks. Radiographs next visit: None Margie Edouard DO Orthopedic Foot and Ankle Surgeon To expedite correspondence, this note was generated by [employer] voice recognition software. Some grammatical or spelling errors may occur using this system. documented in this [id number] History of Present illness Narrative* Grecia Faith [...] expedite correspondence, this note was generated by [employer] voice recognition software. Some grammatical or spelling errors may occur using this system. 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 IMAGING: Please see dictated report. [...] expedite correspondence, this note was generated by [employer] voice recognition software. Some grammatical or spelling errors may occur using this system. documented in [facility]Cl[facility]* Diagnosis Status post total knee replacement, bilateral- Primary documented in this encounter [facility] note* Diagnosis Hallux rigidus of left foot- Primary Eaton's metatarsalgia, left documented in this encounter [facility] note* Diagnosis Hallux rigidus of left foot- Primary Metatarsalgia, left foot documented in this encounter [facility] note* Diagnosis Hallux rigidus of left foot- Primary documented in this encounter [facility] note* Diagnosis Status post total knee replacement, bilateral- Primary documented in this encounter [facility] note* Diagnosis Hallux rigidus of left foot- Primary documented in this encounter [facility] noteNo [facility] Other Evaluation note* Diagnosis Status post total knee replacement, bilateral- Primary documented in this encounter [facility] note* Diagnosis Onset Date Resolution Status Nausea & vomiting acute Primary hypertension acute Subacute cough acute Dyspnea on effort noneactive Murmur noneactive [facility] Work Phone: Evaluation note* Diagnosis Pleural effusion- Primary Unspecified pleural effusion documented in this encounter [facility] note* Diagnosis Obesity, Class I, BMI 30-34.9- Primary Obesity, unspecified Pleural effusion Unspecified pleural effusion documented in this encounter [facility] note* Diagnosis Pleural effusion- Primary Unspecified pleural effusion Encounter for other preprocedural examination Pleural effusion Unspecified pleural effusion Encounter for other preprocedural examination documented in this encounter [facility] note* Diagnosis Pleural effusion- Primary Unspecified pleural effusion Pleural effusion Unspecified pleural effusion Encounter for other preprocedural examination documented in this encounter [facility]* Diagnosis Pleural effusion Unspecified pleural effusion Encounter for other preprocedural examination Pleural effusion Unspecified pleural effusion Encounter for other preprocedural examination [facility] Diagnosis Surgery follow-up- Primary Follow-up examination, following unspecified surgery [facility]* Diagnosis Follow-up exam- Primary Unspecified follow-up examination documented in this encounter [facility] note* Diagnosis Surgery follow-up Follow-up examination, following unspecified surgery [facility]* Diagnosis Follow-up exam Unspecified follow-up examination [facility] Diagnosis Pleural effusion Unspecified pleural effusion [facility]* Diagnosis Pleural effusion Unspecified pleural effusion [facility]* Diagnosis Follow-up examination after lung surgery- Primary Follow-up examination, following other surgery Pleural effusion Unspecified pleural effusion [facility]* Diagnosis Follow-up examination after lung surgery- Primary Follow-up examination, following other surgery Pleural effusion Unspecified pleural effusion Pleural effusion Unspecified pleural effusion [facility]* Diagnosis Pleural effusion- Primary Unspecified pleural effusion documented [facility] this encounter [facility]* Diagnosis Chronic cough- Primary Cough Pleural effusion Unspecified pleural effusion documented in this encounter [facility]* Diagnosis Recurrent pleural effusion- Primary History of pericarditis Personal history of other diseases of circulatory system Chronic cough Cough [facility]* Diagnosis Recurrent 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 Unspecified pleural effusion [facility]* Diagnosis Recurrent 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- Primary Unspecified pleural effusion Chronic cough Cough Elevated C-reactive protein (CRP) Elevated sedimentation rate documented in this encounter [facility]* Diagnosis Pleural effusion- Primary Unspecified pleural effusion Pleural effusion Unspecified pleural effusion documented in this encounter [facility]* Diagnosis Follow-up examination after lung surgery- Primary Follow-up examination, following other surgery Pleural effusion Unspecified pleural effusion Bilateral lower extremity edema Edema Anasarca Edema Nausea vomiting and diarrhea Diarrhea [facility]* Diagnosis Pleural effusion- Primary Unspecified pleural effusion Elevated sed rate Elevated sedimentation rate Elevated C-reactive protein (CRP) documented in this encounter [facility] note* Diagnosis Recurrent 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- Primary Unspecified pleural effusion Primary hypertension Unspecified essential hypertension Pleural effusion Unspecified pleural effusion Chronic cough Cough Anemia, unspecified type Hypomagnesemia Disorders of magnesium metabolism documented in this encounter [facility] note* Diagnosis Recurrent 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- Primary Unspecified pleural effusion History of pericarditis Personal history of other diseases of circulatory system documented in this encounter [facility] note* Diagnosis Pleural effusion Unspecified pleural effusion documented in this encounter [facility] note* Diagnosis Chronic cough Cough Pleural effusion Unspecified pleural effusion documented in this encounter [facility] note* Diagnosis Pleural effusion- Primary Unspecified pleural effusion documented in this encounter [facility] note* Diagnosis Chronic cough- Primary Cough Pleural effusion Unspecified pleural effusion Interstitial pulmonary disease (HCC) Postinflammatory pulmonary fibrosis documented in this encounter [facility] note* Diagnosis Pleural effusion- Primary Unspecified pleural effusion Interstitial pulmonary disease (HCC) Postinflammatory pulmonary fibrosis documented in this encounter [facility] note* Diagnosis Chronic cough- Primary Cough [...] Postinflammatory pulmonary fibrosis documented in this encounter [facility] note* Diagnosis Chronic bronchitis, unspecified chronic bronchitis type (HCC) documented in this encounter [facility] note* Diagnosis Interstitial pulmonary disease (HCC) Postinflammatory pulmonary fibrosis documented in this encounter [facility] note* Diagnosis Pericarditis, unspecified chronicity, unspecified type documented in this encounter [facility] note* Diagnosis Pleural effusion- Primary Unspecified pleural effusion Elevated sed rate Elevated sedimentation rate Elevated C-reactive protein (CRP) Diarrhea, unspecified type documented in this encounter [facility] note* Diagnosis Diarrhea, unspecified type Abdominal pain, unspecified abdominal location [facility]* Diagnosis Abdominal pain, unspecified abdominal location- Primary Diarrhea, unspecified type Diarrhea, unspecified type Abdominal pain, unspecified abdominal location documented in this encounter [facility] note* Diagnosis Nausea and vomiting, unspecified vomiting type documented in this encounter [facility] note* Diagnosis Recurrent 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- Primary Unspecified pleural effusion Anasarca Edema Chronic cough Cough Primary hypertension Unspecified essential hypertension documented in this encounter [facility] note* Diagnosis Pleural effusion Unspecified pleural effusion documented in this encounter [facility] note* Diagnosis Pleural effusion- Primary Unspecified pleural effusion Chronic cough Cough Lung nodule Solitary pulmonary nodule Lymphocytic colitis Other and unspecified noninfectious gastroenteritis and colitis Pleural effusion Unspecified pleural effusion documented in this encounter [facility] note* Diagnosis Pleural effusion- Primary Unspecified pleural effusion Elevated sed rate Elevated sedimentation rate Elevated C-reactive protein (CRP) documented in this encounter [facility] note* Diagnosis Lymphocytic colitis- Primary Other and unspecified noninfectious gastroenteritis and colitis documented in this encounter [facility] note* Diagnosis Recurrent 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- Primary Unspecified pleural effusion Primary hypertension Unspecified essential hypertension Lymphocytic colitis Other and unspecified noninfectious gastroenteritis and colitis Elevated C-reactive protein (CRP) Exocrine pancreatic insufficiency Other specified disease of pancreas Hypokalemia Hypopotassemia Anasarca Edema [facility]* Diagnosis Pleural effusion- Primary Unspecified pleural effusion documented in this encounter [facility] note* Diagnosis Pleural effusion- Primary Unspecified pleural effusion Pleuritis Pleurisy without mention of effusion or current tuberculosis Lymphocytic colitis Other and unspecified noninfectious gastroenteritis and colitis Pericardial effusion (noninflammatory) Interstitial pulmonary disease (HCC) Postinflammatory pulmonary fibrosis documented in this encounter [facility] note* Diagnosis Pleural effusion [J90]- Primary Unspecified pleural effusion [facility]* Diagnosis Pleural effusion Unspecified pleural effusion documented in this encounter [facility] note* Diagnosis Pleural effusion- Primary Unspecified pleural effusion Muscle cramps Cramp of limb Anasarca Edema Hypomagnesemia Disorders of magnesium metabolism Lymphocytic colitis Other and unspecified noninfectious gastroenteritis and colitis documented in this encounter [facility] note* Diagnosis Fatigue, unspecified type- Primary documented [facility]* Diagnosis Pleural effusion- Primary Unspecified pleural effusion documented [facility]* Diagnosis Pleural effusion- Primary Unspecified pleural effusion Pleuritis Pleurisy without mention of effusion or current tuberculosis Pericardial effusion (noninflammatory) Chronic cough Cough documented [facility]* Diagnosis Pleural effusion- Primary Unspecified pleural effusion documented in this encounter [facility] note* Diagnosis Pleural effusion Unspecified pleural effusion documented in this encounter [facility] note* Diagnosis Early dry stage nonexudative age-related macular degeneration of both eyes- Primary Dry eyes Unspecified tear film insufficiency Blepharitis of upper and lower eyelids of both eyes, unspecified type Bilateral posterior capsular opacification Unspecified after-cataract Chalazion of left upper eyelid documented in this encounter [facility] note* Diagnosis Pleural effusion- Primary Unspecified pleural effusion documented in this encounter [facility] note* Diagnosis Recurrent 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- Primary Unspecified pleural effusion documented in this encounter [facility] note* Diagnosis Lymphocytic colitis- Primary Other and unspecified noninfectious gastroenteritis and colitis Esophageal dysphagia Dysphagia, pharyngoesophageal phase documented in this encounter [facility] note* Diagnosis Seborrheic keratosis- Primary Actinic keratosis Stasis dermatitis of both legs Lentigines documented in this encounter [facility] note* Diagnosis Recurrent 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- Primary Unspecified pleural effusion documented [facility]* Diagnosis Recurrent 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- Primary Unspecified pleural effusion documented in this encounter [facility] note* Diagnosis Recurrent 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- Primary Unspecified pleural effusion Hypokalemia Hypopotassemia Lymphocytic colitis Other and unspecified noninfectious gastroenteritis and colitis Anemia, unspecified type Chronic insomnia Insomnia, unspecified Bronchiolar disease Other diseases of trachea and bronchus documented [facility] this encounter [facility]* Diagnosis Esophageal dysphagia- Primary Dysphagia, pharyngoesophageal phase Bronchiolar disease Other diseases of trachea and bronchus documented in this encounter [facility]* Diagnosis Cough, unspecified type documented [facility] this encounter [facility]* Diagnosis Elevated BUN- Primary Other abnormal blood chemistry Elevated serum creatinine Other nonspecific findings on examination of blood Decreased GFR Nonspecific abnormal results of kidney function study Elevated alkaline phosphatase level Other nonspecific abnormal serum enzyme levels [facility] Diagnosis FLOYD (acute kidney injury)- Primary Acute kidney failure, unspecified Elevated BUN Other abnormal blood chemistry Elevated serum creatinine Other nonspecific findings on examination of blood Decreased GFR Nonspecific abnormal results of kidney function study Lymphocytic colitis Other and unspecified noninfectious gastroenteritis and colitis Pleural effusion, not elsewhere classified Generalized edema Edema [facility] Diagnosis Screening for genitourinary condition Screening for other and unspecified genitourinary condition [facility] Diagnosis Cramp and spasm [facility] Diagnosis Serositis (HCC)- Primary Other specified disorder of intestines [facility] Diagnosis Generalized abdominal pain- Primary Abdominal pain, generalized Other ascites [facility] Diagnosis Elevated alkaline phosphatase level Other nonspecific abnormal serum enzyme levels [facility] Diagnosis Pleural effusion- Primary Unspecified pleural effusion [facility] Diagnosis Pleural effusion Unspecified pleural effusion Encounter for other preprocedural examination [facility] Diagnosis Anasarca- Primary Edema Recurrent 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 Unspecified pleural effusion Hepatomegaly Hiatal hernia Diaphragmatic hernia without mention of obstruction or gangrene Chronic gastritis without bleeding, unspecified gastritis type Hypomagnesemia Disorders of magnesium metabolism [facility] Diagnosis Pleural effusion Unspecified pleural effusion [facility] Diagnosis Extremity cyanosis- Primary Other peripheral vascular disease [facility] Diagnosis Pleural effusion- Primary Unspecified pleural effusion [facility] Diagnosis Pleural effusion- Primary Unspecified pleural effusion Pleuritis Pleurisy without mention of effusion or current tuberculosis Pericardial effusion (noninflammatory) (HCC) Lymphocytic colitis Other and unspecified noninfectious gastroenteritis and colitis Other ascites [facility] Diagnosis Pleural effusion, not elsewhere classified [facility]* Diagnosis Hepatomegaly [facility]* Diagnosis Cramp and spasm [facility] Diagnosis Mixed connective tissue disease (HCC)- Primary Other specified diffuse disease of connective tissue Urge incontinence Hypokalemia Hypopotassemia Recurrent 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 Unspecified pleural effusion Muscle cramps Cramp of limb Hiatal hernia Diaphragmatic hernia without mention of obstruction or gangrene [facility] Diagnosis Elevated serum creatinine- Primary Other nonspecific findings on examination of blood Elevated alkaline phosphatase level Other nonspecific abnormal serum enzyme levels [facility] Diagnosis Pleural effusion, not elsewhere classified Elevated alkaline phosphatase level Other nonspecific abnormal serum enzyme levels [facility]* Diagnosis Cramp and spasm Elevated alkaline phosphatase level Other nonspecific abnormal serum enzyme levels [facility] Diagnosis Pleural effusion- Primary Unspecified pleural effusion Pleuritis Pleurisy without mention of effusion or current tuberculosis Pericardial effusion (noninflammatory) (HCC) History of pericarditis Personal history of other diseases of circulatory system Lymphocytic colitis Other and unspecified noninfectious gastroenteritis and colitis Elevated alkaline phosphatase level Other nonspecific abnormal serum enzyme levels [facility]* Diagnosis Hypomagnesemia- Primary Disorders of magnesium metabolism Dyslipidemia Other and unspecified hyperlipidemia Anemia, unspecified type [facility] Diagnosis Other ascites- Primary [facility] Diagnosis Other ascites [facility] Diagnosis FLOYD (acute kidney injury)- Primary Acute kidney failure, unspecified Screening for genitourinary condition Screening for other and unspecified genitourinary condition Elevated serum creatinine Other nonspecific findings on examination of blood Decreased GFR Nonspecific abnormal results of kidney function study Generalized edema Edema Pleural effusion, not elsewhere classified [facility]* Diagnosis FLOYD (acute kidney injury)- Primary [...] unspecified genitourinary condition [facility]* Diagnosis 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, stage 2 (CMS-HCC)- Primary Cellulitis of left foot Pain in toe of left foot Pain in soft tissues of limb Difficulty walking Difficulty in walking documented in this encounter [facility]* Diagnosis 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, stage 2 (CMS-HCC)- Primary Cellulitis of left foot Pain in toe of left foot Pain in soft tissues of limb Difficulty walking Difficulty in walking documented in this encounter [facility]* Diagnosis 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, stage 2 (CMS-HCC)- Primary Cellulitis of left foot Pain in toe of left foot Pain in soft tissues of limb Difficulty walking Difficulty in walking documented in this encounter [facility] HealthcareHistory general Narrative - Reported* Type Description Date Medical History 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 Medical History Benign prostatic hyp erplasia with lower urinary tract symptoms Medical History Hyperlipidemia type II Medical History Gastro-esophageal re flux disease with esophagitis, without bleeding Surgical History both knee replaced Surgical History hand surgery Hospitalization History SEE ABOVE [facility] Other Reason for referral (narrative)* Outpatient Procedure (Routine) - Authorized Specialty Diagnoses / Procedures Referred By Kelly stein Referred [facility] Diagnoses Pleural effusion Encounter for other preprocedural examination Procedures SIX MINUTE WALK CARDIOPULMONARY EXERCISE STRESS Ronaldo Flood MD, PhD [address] [place] [address] Respiratory Walker [address] [place] [address] Referral ID Status Reason Start Date Expiration Date Visits Requested Visits Authorized [id number] Authorized Auto-Generat ed Referral 10/28/2023 11/26/2024 1 1 * Outpatient Procedure (Routine) - Authorized Specialty Diagnoses / Procedures Referred By Kelly stein Ref[facility] Diagnoses Pleural effusion Encounter for other preprocedural examination Procedures ECG COMPLETE ECG ROUTINE ECG W/LEAST 12 LDS W/I&R Ronaldo Flood MD, PhD [address] [place] [address] [facility] Walker [address] [place] [address] Referral ID Status Reason Start Date Expiration Date Visits Requested Visits Authorized [id number] Authorized Auto-Generat ed Referral 10/28/2023 10/23/2024 1 1 * Diagnostic Procedure Only (Routine) - Authorized Specialty Diagnoses / Procedures Referred By Anaac t Referred To Contact [facility] Diagnoses Pleural effusion Encounter for other preprocedural examination Procedures NM CARDIAC PERF STRESS/EXERCISE MYOCARDIAL SPECT MULTIPLE STUDIES Ronaldo Flood MD, PhD [address] [place] [id number] [facility] [address] [place] [address] Referral ID Status Reason Start Date Expiration Date Visits Requested Visits Authorized [id number] Authorized Auto-Generat ed Referral 10/28/2023 11/22/2024 1 1 * Outpatient Procedure (Routine) - Authorized Specialty Diagnoses / Procedures Referred By Contac t Referred [facility] Diagnoses Pleural effusion Encounter for other preprocedural examination Procedures LUNG DIFFUSION CAPACITY (DLCO) DIFFUSING CAPACITY Ronaldo Flood MD, PhD [address] [place] [address] Respiratory Walker [address] [place] [id number] Referral ID Status Reason Start Date Expiration Date Visits Requested Visits Authorized [id number] Authorized Auto-Generat ed Referral 10/28/2023 11/22/2024 1 1 * Outpatient Procedure (Routine) - Authorized Specialty Diagnoses / Procedures [facility] Diagnoses Pleural effusion Encounter for other preprocedural examination Procedures SPIROMETRY WITH DILATOR IF OBSTRUCTED BRNCDILAT RSPSE SPMTRY PRE&POST-BRNCDILAT ADMN Ronaldo Flood MD, PhD [address] [place] [address] Respiratory [place] [id number] Referral ID Status Reason Start Date Expiration Date Visits Requested Visits Authorized [id number] Authorized Auto-Generat ed Referral 10/28/2023 11/22/2024 1 1 [facility] for referral (narrative)* Outpatient Procedure (Routine) - New Request Specialty Diagnoses / Procedures Referred By Contac t Referred To [facility] Diagnoses Chronic cough Pleural effusion Procedures SPIROMETRY WITH DILATOR IF OBSTRUCTED BRNCDILAT RSPSE SPMTRY PRE&POST-BRNCDILAT ADMN Katerina Bravo APRN.CNP [address] [place] [id number] [place] [id number] Referral ID Status Reason Start Date Expiration Date Visits Requested Visits Authorized [id number] New Request Auto-Generat ed Referral 01/06/2024 02/04/2025 1 1 * Outpatient Procedure (Routine) - New Request Specialty Diagnoses / Procedures Referred By Contac t Referred To [facility] Diagnoses Chronic cough Pleural effusion Procedures NITRIC OXIDE, EXHALED NITRIC OXIDE GAS DETERMINATION Katerina Bravo APRN.CNP [address] [place] [address] [place] [address] Referral ID Status Reason Start Date Expiration Date Visits Requested Visits Authorized [id number] New Request Auto-Generat ed Referral 01/06/2024 02/04/2025 1 1 [facility] for referral (narrative)* Outpatient Procedure (Routine) - Closed Specialty Diagnoses / Procedures Referred By Contac t Referred To [facility] Diagnoses Pleural effusion Interstitial pulmonary disease (HCC) Procedures LUNG VOLUMES Louise Cesar MD [address] [place] [phone] [address] Referral ID Status Reason Start Date Expiration Date V isits Requested Visits Authorized [id number] Closed Auto-Generate d Referral 03/17/2024 04/16/2025 1 1 * Outpatient Procedure (Routine) - Closed Specialty Diagnoses / Procedures Referred By Kelly t Referred To [facility] Diagnoses Chronic cough Pleural effusion Interstitial pulmonary disease (HCC) Procedures LUNG DIFFUSION CAPACITY (DLCO) DIFFUSING CAPACITY Louise Cesar MD [address] [place] [address] [address] Referral ID Status Reason Start Date Expiration Date V isits Requested Visits Authorized [id number] Closed Auto-Generate d Referral 03/17/2024 04/16/2025 1 1 * Outpatient Procedure (Routine) - Authorized Specialty Diagnoses / Procedures Referred By Kelly t Referred To Contact [facility] Diagnoses Pericarditis, unspecified chronicity, unspecified type Procedures ECHO ECHO TTHRC R-T 2D W/WOM-MODE COMPL SPEC&COLR D Louise Cesar MD [address] [place] [address] [place] [phone] Referral ID Status Reason Start Date Expiration Date Visits Requested Visits Authorized [id number] Authorized Auto-Generat ed Referral 03/17/2024 03/17/2025 1 1 * MRI/CT (Routine) - Closed Specialty Diagnoses / Procedures Referred By Kelly stein Referred To Contact CT IMAGING Diagnoses Interstitial pulmonary disease (HCC) Procedures CT CHEST W IVCON DIAGNOSTIC COMPUTED TOMOGRAPHY THORAX W/CONTRAST Louise Cesar MD [address] [place] [id number] Imaging [facility] Referral ID Status Reason Start Date Expiration Date V isits Requested Visits Authorized [id number] Closed Auto-Generate d Referral 03/17/2024 04/16/2025 1 1 [facility] for referral (narrative)* Outpatient Procedure (Routine) - Closed Specialty Diagnoses / Procedures Referred By Contac t Referred To Contact [facility] Diagnoses Pericarditis, unspecified chronicity, unspecified type Procedures ECHO ECHO TTHRC R-T 2D W/WOM-MODE COMPL SPEC&COLR D Louise Cesar MD [address] [phone] [place] [address] Referral ID Status Reason Start Date Expiration Date V isits Requested Visits Authorized [id number] Closed Auto-Generate d Referral 03/17/2024 03/17/2025 1 1 [facility] for visit Narrative* Outpatient Procedure (Routine) - Closed Specialty Diagnoses / Procedures Referred By Contac t Referred To Contact [facility] Diagnoses Pericarditis, unspecified chronicity, unspecified type Procedures ECHO ECHO TTHRC R-T 2D W/WOM-MODE COMPL SPEC&COLR D Louise Cesar MD [address] [place] [phone] [place] [id number] Referral ID Status Reason Start Date Expiration Date V isits Requested Visits Authorized [id number] Closed Auto-Generate d Referral 03/17/2024 03/17/2025 1 1 [facility] for visit Narrative* Outpatient Procedure (Routine) - Closed Specialty Diagnoses / Procedures Referred By Contac t Referred To Contact [facility] Diagnoses Diarrhea, unspecified type Procedures COLONOSCOPY DIAGNOSTIC COLONOSCOPY FLX DX W/COLLJ SPEC WHEN PFRMD Sue Murillo MD [address] [place] [address] [facility] Walker [address] [place], [place] [id number] Referral ID Status Reason Start Date Expiration Date V isits Requested Visits Authorized [id number] Closed Auto-Generate d Referral 04/20/2024 04/20/2025 1 1 [facility] for visit Narrative* Diagnostic Procedure Only (Routine) - Closed Specialty Diagnoses / Procedures Referred By Contac t Referred To Contact XR IMAGING Diagnoses Pleural effusion Procedures XR CHEST 1V DECUBITUS RIGHT RADIOLOGIC EXAM CHEST SINGLE VIEW Triston Riggs MD [address] [place] [address] Phone: tel: fax: XR IMAGING [place] [id number] Referral ID Status Reason Start Date Expiration Date V isits Requested Visits Authorized [id number] Closed Auto-Generate d Referral 07/20/2024 08/19/2025 1 1 [facility] for visit Narrative* Outpatient Procedure (Routine) - Closed Specialty Diagnoses / Procedures Referred By Contac t Referred To Contact [facility] Diagnoses Esophageal dysphagia Procedures EGD DIAGNOSTIC ESOPHAGOGASTRODUODENOSC OPY TRANSORAL DIAGNOSTIC Sue Murillo MD [address] [place] [address] Phone: tel: fax: [place] [address] Referral ID Status Reason Start Date Expiration Date V isits Requested Visits Authorized [id number] Closed Auto-Generate d Referral 08/24/2024 08/24/2025 1 1 [facility] for visit Narrative* Diagnostic Procedure Only (Routine) - Closed Specialty Diagnoses / Procedures Referred By Contac t Referred To Contact US IMAGING Diagnoses Elevated alkaline phosphatase level Procedures US ABD RIGHT UPPER QUADRANT US ABDOMINAL REAL TIME W/IMAGE LIMITED Xiomara Ly APRN.PRODUCT DEMONSTRATOR [address] [place] [address] Phone: tel: fax: US IM[facility]95 Referral ID Status Reason Start Date Expiration Date V isits Requested Visits Authorized [id number] Closed Auto-Generate d Referral 10/15/2024 11/14/2025 1 1 [facility] for visit Narrative* Diagnostic Procedure Only (Routine) - Closed Specialty Diagnoses / Procedures Referred By Contac t Referred To Contact US IMAGING Diagnoses Hepatomegaly Procedures US ELASTOGRAPHY LIVER ULTRASOUND ELASTOGRAPHY [place] [address] [place] [address] Phone: tel: fax: [place] [address] Referral ID Status Reason Start Date Expiration Date V isits Requested Visits Authorized [id number] Closed Auto-Generate d Referral 11/13/2024 12/13/2025 1 1 [facility] for visit Narrative* Diagnostic Procedure Only (Routine) - Closed Specialty Diagnoses / Procedures Referred By Contac t Referred To Contact US IMAGING Diagnoses Other ascites Procedures US DOPPLER COMPLETE DUP-SCAN ARTL KRYSTAL ABDL/PEL/SCROT&/RPR ORGN COM Marlyn Hooper APRN.PRODUCT DEMONSTRATOR [address] [place] [address] Phone: tel: fax: US IM[facility]ING [facility]95 Referral ID Status Reason Start Date Expiration Date V isits Requested Visits Authorized [id number] Closed Auto-Generate d Referral 02/17/2025 03/19/2026 1 1 [facility] Assessments Diagnosis Primary osteoarthritis of [...] Physician Group [facility] [address] [place] [address], [facility] [address] [place], [place] [address] Patient Name: Sav Raymundo Patient Age: 66 [...] Physician Group [facility] [address] [facility], [facility] [address] [place], [place] [address] Patient Name: Sav Raymundo Patient Age: 66 [...] Huff, DO - 07/01/2019 10:05 AM EST [facility] [address] [place] [address] Patient Name: Sav Raymundo Patient Age: 69 [...] KNEE ARTHROPLASTY; Surgeon: Karthik Calloway MD; Location: [facility] OR; Service: ARTHROPLASTY KNEE TOTAL Right 06/25/2016 Procedure: RIGHT TOTAL KNEE ARTHROPLASTY ; Surgeon: Karthik Calloway MD; Location: [facility] OR; Service: BASAL CELL CARCINOMA [...] file Gets together: Not on file Attends hindu service: Not on file Active member of [...] mouth every morning . vit A-vit C-vit O-kbna-wjrvra (EYE VITAMIN AND MINERALS) 7,160-113-100 mhom-ay-udtg Tab Take 1 tablet by mouth every [...] with no interval change from most recentimaging. Wylie view shows the patella tracks well without [...] expedite correspondence this note was generated by [employer] voice recognition software. Somegrammatical or spelling errors may occur using the system. documented in this encounter* Nena Huff, - 07/20/2020 2:42 PM EST [facility] [address] [place] [address] Patient Name: Sav Raymundo Patient Age: 70 [...] KNEE ARTHROPLASTY; Surgeon: Karthik Calloway MD; Location: [facility] OR; Service: ARTHROPLASTY KNEE TOTAL Right 06/25/2016 Procedure: RIGHT TOTAL KNEE ARTHROPLASTY ; Surgeon: Karthik Calloway MD; Location: [facility] OR; Service: BASAL CELL CARCINOMA [...] file Gets together: Not on file Attends hindu service: Not on file Active member of [...] mg by mouth daily. vit A-vit C-vit H-qkvh-miuxcx (EYE VITAMIN AND MINERALS) 7,160-113-100 ehwk-hz-dxzu Tab Take 1 tablet by mouth every [...] with no interval change from most recentimaging. Wylie view shows the patella tracks well in [...] expedite correspondence this note was generated by [employer] voice recognition software. Somegrammatical or spelling errors may occur using the system. 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 Patient [employer] Operator Expl anation Advance Directives and Living Will [...] Documents on File Type Date Recorded Patient [employer] Operator Expl anation Advance Directive(s) 11/12/2023 2:37 PM Documents on File Type Date Recorded Patient [employer] Operator Expl anation Advance Directive(s) 11/12/2023 2:37 PM [...] TOMOGRAPHY THORAX W/O CNTRST Louise Cesar MD [address] [place] [address] [address] [facility] [place] [address] Referral ID Status Reason Start Date Expiration Date Visits Requested Visits Authorized [id number] New Request Auto-Generat ed Referral 05/18/2024 06/17/2025 1 1 Specialty Diagnoses / Procedures Referred By Contac t Referred To Contact CT IMAGING Diagnoses Diarrhea, unspecified type Abdominal pain, unspecified abdominal location Procedures CT ENTEROGRAPHY W IVCON CT ABD & PELVIS W/CONTRAST Sue Murillo MD [address] [place] [address] Ct Imaging [place] [address] Referral ID Status Reason Start Date Expiration Date V isits Requested Visits Authorized [id number] Closed Auto-Generate d Referral 04/20/2024 05/20/2025 1 1 Specialty Diagnoses / Procedures Referred By Contac t Referred To Contact Gastroenterology Diagnoses Diarrhea, unspecified type Procedures CONSULT TO GASTROENTEROLOGY OFFICE/OUTPATIENT [facility] 60 MINUTES Steffen Mccarty MD [address] [facility] [place] [phone] Referral ID Status Reason Start Date Expiration Date Visits Requested Visits Authorized [id number] Authorized PCP Requested Referral 03/30/2025 1 1 Specialty Diagnoses / Procedures Referred By Contac t Referred To Contact Rheumatology Diagnoses Pleural effusion Elevated sed rate Elevated C-reactive protein (CRP) Procedures CONSULT TO RHEUM/IMMUN DISEASE OFFICE/OUTPATIENT [facility] 60 MINUTES Ttia Landry APRN.PRODUCT DEMONSTRATOR [address] [place] [id number] Referral ID Status Reason Start Date Expiration Date Visits Requested Visits Authorized [id number] Authorized PCP Requested Referral 02/04/2024 02/03/2025 1 1 Additional Source Comments Reason for Visit (unrecogniz ed section and content) Reason Comments Consult Specialty Diagnoses / Procedures Referred By Contac t Referred To Contact Nephrology Diagnoses Elevated BUN Elevated serum creatinine Decreased GFR Procedures CONSULT TO NEPHROLOGY CONSULT TO NEPHROLOGY OFFICE/OUTPATIENT [facility] MDM 60 MINUTES Xiomara Ly APRN.PRODUCT DEMONSTRATOR [address] [place] [address] Phone: tel: fax: Referral ID Status Reason Start Date Expiration Date V isits Requested Visits Authorized [id number] Closed PCP Requested Referral 10/14/2024 10/14/2025 1 1 Reason Comments Established Patient Follow-Up Specialty Diagnoses / Procedures Referred By Contac t Referred To Contact Diagnoses [facility] Procedures [address] [place] [address] IP/OBS CARE [facility] [address] [place] [address] Referral ID Status Reason Start Date Expiration Date Visits Re quested Visits Authorized [id number] 1 1 Reason Comments Follow-up Reason Comments [...] [facility] [address] Referral ID Status Reason Start Date Expiration Date Visits Re quested Visits Authorized [id number] 1 1 Reason Comments Radiology NM Specialty Diagnoses / Procedures Referred By Contac t Referred To Contact MOLECULAR & FUNCTIONAL IMAGING Diagnoses Pleural effusion Encounter for other preprocedural examination Procedures NM CARDIAC PERF STRESS/EXERCISE MYOCARDIAL SPECT MULTIPLE STUDIES Ronaldo Flood MD, PhD [address] [facility] [address] [place] [address] Molecular & Functional Imaging [address] [place] [phone] Referral ID Status Reason Start Date Expiration Date V isits Requested Visits Authorized [id number] Closed Auto-Generate d Referral 10/28/2023 11/22/2024 1 [...] OXIDE, EXHALED NITRIC OXIDE GAS DETERMINATION Katerina rBavo, BOARD CERTIFIED MUSIC THERAPIST.PRODUCT DEMONSTRATOR [address] [place] [address] Respiratory Walker [address] [place] [address] Referral ID Status Reason Start Date Expiration Date V isits Requested Visits Authorized [id number] Closed Auto-Generate d Referral 01/06/2024 02/04/2025 1 1 Specialty Diagnoses / Procedures Referred By Contac t Referred To Contact [facility] Diagnoses Chronic cough Pleural effusion Procedures SPIROMETRY WITH DILATOR IF OBSTRUCTED BRNCDILAT RSPSE SPMTRY PRE&POST-BRNCDILAT ADMN Katerina Bravo, BOARD CERTIFIED MUSIC THERAPIST.PRODUCT DEMONSTRATOR [address] [place] [address] Respiratory Walker [address] [place] [address] Referral ID Status Reason Start Date Expiration Date V isits Requested Visits Authorized [id number] Closed Auto-Generate d Referral 01/06/2024 02/04/2025 1 1 Specialty Diagnoses / Procedures Referred By Contac t Referred To Contact [facility] Diagnoses Chronic cough Pleural effusion Interstitial pulmonary disease (HCC) Procedures LUNG DIFFUSION CAPACITY (DLCO) DIFFUSING CAPACITY Louise Cesar MD [address] [place] [address] Respiratory Walker [address] [place] [address] Referral ID Status Reason Start Date Expiration Date V isits Requested Visits Authorized [id number] Closed Auto-Generate d Referral 03/17/2024 04/16/2025 1 1 Specialty Diagnoses / Procedures Referred By Contac t Referred To Contact [facility] Diagnoses Pleural effusion Interstitial pulmonary disease (HCC) Procedures LUNG VOLUMES Louise Cesar MD [address] [place] [address] Respiratory Walker [address] [place], [place] [id number] Referral ID Status Reason Start Date Expiration Date V isits Requested Visits Authorized [id number] Closed Auto-Generate d Referral 03/17/2024 04/16/2025 1 1 Reason Comments New Specialty Diagnoses / Procedures Referred By Contac t Referred To Contact CT IMAGING Diagnoses Interstitial pulmonary disease (HCC) Procedures CT CHEST W IVCON DIAGNOSTIC COMPUTED TOMOGRAPHY THORAX W/CONTRAST Louise Cesar MD [address] [place] [address] Ct Imaging [facility]95 Referral ID Status Reason Start Date Expiration Date V isits Requested Visits Authorized [id number] Closed Auto-Generate d Referral 03/17/2024 04/16/2025 1 1 Reason Comments recurrent pleural effusion Specialty Diagnoses / Procedures Referred By Contac t Referred To Contact Rheumatology Diagnoses Pleural effusion Elevated sed rate Elevated C-reactive protein (CRP) Procedures CONSULT TO RHEUM/IMMUN DISEASE OFFICE/OUTPATIENT [facility] 60 MINUTES Tita Landry, LETICIA.PRODUCT DEMONSTRATOR [address] [place] [address] Referral ID Status Reason Start Date Expiration Date V isits Requested Visits Authorized [id number] Closed PCP Requested Referral 02/04/2024 02/03/2025 [address] Specialty Diagnoses / Procedures Referred By Contac t Referred To Contact CT IMAGING Diagnoses Diarrhea, unspecified type Abdominal pain, unspecified abdominal location Procedures CT ENTEROGRAPHY W IVCON CT ABD & PELVIS W/CONTRAST Sue Murillo MD [address] [place] [address] Ct Imaging [place] [address] Referral ID Status Reason Start Date Expiration Date V isits Requested Visits Authorized [id number] Closed Auto-Generate d Referral 04/20/2024 05/20/2025 1 1 Reason Comments Diarrhea Specialty Diagnoses / Procedures Referred By Contac t Referred To Contact Gastroenterology Diagnoses Diarrhea, unspecified type Procedures CONSULT TO GASTROENTEROLOGY OFFICE/OUTPATIENT [facility] 60 MINUTES Steffen Mccarty MD [address] [facility] [place] [address] Referral ID Status Reason Start Date Expiration Date V isits Requested Visits Authorized [id number] Closed PCP Requested Referral 03/30/2024 03/30/2025 1 [...] PLEURAL SPACE W IMAGING GUIDANCE Admitting [address] [place] [address] Referral ID Status Reason Start Date Expiration Date Visits Re quested Visits Authorized [id number] 1 1 Reason Comments Radio Main J1 Reason Comments Follow Up Reason Comments Radio Gen HB6 Reason Comments New Patient Reason Comments Follow Up Shortness of Breath Reason Comments Radio Gen A21 Reason Comments Fatigue Reason Comments elevated alkaline phosphatase Specialty Diagnoses / Procedures Referred By Contac t Referred To Contact Diagnoses Elevated alkaline phosphatase level Procedures CONSULT TO HEPATOLOGY OFFICE/OUTPATIENT [facility] MDM 60 MINUTES Xiomara Ly APRN.PRODUCT DEMONSTRATOR [address] [place] [address] Phone: tel: fax: Referral ID Status Reason Start Date Expiration Date V isits Requested Visits Authorized [id number] Closed PCP Requested Referral 10/15/2024 10/15/2025 1 1 Reason Comments Follow Up Specialty Diagnoses / Procedures Referred By Contac t Referred To Contact Nephrology Diagnoses Elevated serum creatinine Procedures OFFICE/OUTPATIENT [facility] MDM 60 MINUTES Marlyn Hooper APRN.PRODUCT DEMONSTRATOR [address] [place] [address] Phone: tel: fax: Referral ID Status Reason Start Date Expiration Date V isits Requested Visits Authorized [id number] Closed PCP Requested Referral 12/22/2024 12/22/2025 1 [...] Care Teams (unrecognized sec tion and content) Safety Council Director Relationship Specialty Start Date End Date Yuli Mariscal DO [address] [place] [address] PCP - General Internal Medicine 06/29/14 Yuli Mariscal DO [address] [place] [address] Internal Medicine 06/29/14 Karthik Calloway MD Consulting Physician Orthopedic Surgery 01/28/17 Safety Council Director Relationship Specialty Start Date End Date Yuli Mariscal DO [address] [place] [address] PCP - General Internal Medicine 06/29/14 Yuli Mariscal DO [address] [facility] [address] Internal Medicine 06/29/14 Karthik Calloway MD [address] [facility] [place] [address] Consulting Physician Orthopedic Surgery 01/28/17 Safety Council Director Relationship Specialty Start Date End Date Yuli Mariscal DO [address] [facility] [place] [address] PCP - General Internal Medicine 06/29/14 Yuli Mariscal DO [address] [facility] [place] [address] Internal Medicine 06/29/14 Karthik Calloway MD [address] [facility] [place] [address] Consulting Physician Orthopedic Surgery 01/28/17 Safety Council Director Relationship Specialty Start Date End Date Yuli Mariscal DO [address] [facility] [place] [address] PCP - General Internal Medicine 06/29/14 Yuli Mariscal DO [address] [facility] [place] [address] Internal Medicine 06/29/14 Karthik Calloway MD [address] [facility] [place] [address] Consulting Physician Orthopedic Surgery 01/28/17 Safety Council Director Relationship Specialty Start Date End Date Yuli Mariscal DO [address] [facility] [place] [address] PCP - General Internal Medicine 06/29/14 Yuli Mariscal DO [address] [facility] [place] [address] Internal Medicine 06/29/14 Karthik Calloway MD [address] [facility] [place] [address] Consulting Physician Orthopedic Surgery 01/28/17 Safety Council Director Relationship Specialty Start Date End Date Yuli Mariscal DO [address] [facility] [place] [address] PCP - General Internal Medicine 06/29/14 Yuli Mariscal DO [address] [facility] [place] [address] Internal Medicine 06/29/14 Karthik Calloway MD [address] [facility] [place] [address] Consulting Physician Orthopedic Surgery 01/28/17 Safety Council Director Relationship Specialty Start Date End Date Yuli Mariscal DO [address] [facility] [place] [address] PCP - General Internal Medicine 06/29/14 Yuli Mariscal DO [address] [facility] [place] [address] Internal Medicine 06/29/14 Karthik Calloway MD [address] [facility] [place] [address] Consulting Physician Orthopedic Surgery 01/28/17 Safety Council Director Relationship Specialty Start Date End Date Yuli Mariscal DO [address] [facility] [place] [address] PCP - General Internal Medicine 06/29/14 Yuli Mariscal DO [address] [facility] [place] [address] Internal Medicine 06/29/14 Karthik Calloway MD [address] [facility] [place] [address] Consulting Physician Orthopedic Surgery 01/28/17 Safety Council Director Relationship Specialty Start Date End Date Yuli Mariscal DO [address] [place] [address] [place] [address] PCP - General Internal Medicine 06/29/14 Yuli Mariscal DO [address] [place] [address] [place] [address] Internal Medicine 06/29/14 Karthik Calloway MD [address] [place] [address] [place] [address] Consulting Physician Orthopedic Surgery 01/28/17 Team Status: [...] October 02, 2023 End: October 02, 2023 Safety Council Director Relationship Specialty Start Date End Date Yuli Mariscal DO [address] [place] [facility] [place] [address] PCP - General Internal Medicine 12/07/20 Jere Sales [address] [place] [address] [place] [address] Referring Gastroenterology 12/05/20 Safety Council Director Relationship Specialty Start Date End Date Yuli Mariscal DO [address] [place] [facility] [place] [address] PCP - General Internal Medicine 12/07/20 Jere Sales [address] [place] [address] Referring Gastroenterology 12/05/20 Calin Clemente DO [address] [place] [address] Internal Medicine 10/16/23 Safety Council Director Relationship Specialty Start Date End Date Yuli Mariscal DO [address] [place] [facility] [place] [address] PCP - General Internal Medicine 12/07/20 Jere Sales [address] [place] [address] Referring Gastroenterology 12/05/20 Calin Clemente DO [address] [place] [place] [address] Internal Medicine 10/16/23 Safety Council Director Relationship Specialty Start Date End Date Yuli Mariscal DO [address] [place] [facility] [place] [address] PCP - General Internal Medicine 12/07/20 Jere Sales [address] [place] [address] Referring Gastroenterology 12/05/20 Calin Clemente DO [address] [place] [place] [address] Internal Medicine 10/16/23 Safety Council Director Relationship Specialty Start Date End Date Yuli Mariscal DO [address] [place] [facility] [place] [address] PCP - General Internal Medicine 12/07/20 Jere Sales [address] [place] [address] Referring Gastroenterology 12/05/20 Calin Clemente DO [address] [place] [address] Internal Medicine 10/16/23 Safety Council Director Relationship Specialty Start Date End Date Yuli Mariscal DO [address] [place] [facility] [place] [address] PCP - General Internal Medicine 12/07/20 Jree Sales [address] [place] [address] Referring Gastroenterology 12/05/20 Calin Clemente DO [address] [place] [address] Internal Medicine 10/16/23 Safety Council Director Relationship Specialty Start Date End Date Yuli Mariscal DO [address] [place] [facility] [place] [address] PCP - General Internal Medicine 12/07/20 Jere Sales [address] [place] [address] Referring Gastroenterology 12/05/20 Calin Clemente DO [address] [place] [address] Internal Medicine 10/16/23 Safety Council Director Relationship Specialty Start Date End Date Yuli Mariscal DO [address] [place] [facility] [place] [address] PCP - General Internal Medicine 12/07/20 Jere Sales [address] [place] [address] Referring Gastroenterology 12/05/20 Calin Clemente DO [address] [place] [address] Internal Medicine 10/16/23 Safety Council Director Relationship Specialty Start Date End Date Yuli Mariscal DO [address] [place] [facility] [place] [address] PCP - General Internal Medicine 12/07/20 Jere Sales [address] [place] [address] Referring Gastroenterology 12/05/20 Calin Clemente DO [address] [place] [address] Internal Medicine 10/16/23 Safety Council Director Relationship Specialty Start Date End Date Yuli Mariscal DO [address] [facility] [place] [address] PCP - General Internal Medicine 12/07/20 Jere Sales [address] [facility] [address] [place] [address] Referring Gastroenterology 12/05/20 Calin Clemente DO [address] [place] [address] Internal Medicine 10/16/23 Safety Council Director Relationship Specialty Start Date End Date Yuli Mariscal DO [address] [place] [facility] [place] [address] PCP - General Internal Medicine 12/07/20 Jere Sales [address] [facility] [address] [place] [address] Referring Gastroenterology 12/05/20 Calin Clemente DO [address] [place] [address] Internal Medicine 10/16/23 Safety Council Director Relationship Specialty Start Date End Date Yuli Mariscal DO [address] [place] [place] [address] PCP - General Internal Medicine 12/07/20 Jere Sales [address] [facility] [address] [place] [address] Referring Gastroenterology 12/05/20 Calin Clemente DO [address] [place] [address] Internal Medicine 10/16/23 Safety Council Director Relationship Specialty Start Date End Date Yuli Mariscal DO [address] [place] [facility] [place] [address] PCP - General Internal Medicine 12/07/20 Jere Sales [address] [place] [address] Referring Gastroenterology 12/05/20 Calin Clemente DO [address] [place] [address] Internal Medicine 10/16/23 Safety Council Director Relationship Specialty Start Date End Date Yuli Mariscal DO [address] [place] [facility] [place] [address] PCP - General Internal Medicine 12/07/20 Jere Sales [address] [place] [address] Referring Gastroenterology 12/05/20 Calin Clemente DO [address] [place] [address] Internal Medicine 10/16/23 Safety Council Director Relationship Specialty Start Date End Date Yuli Mariscal DO [address] [place] [facility] [place] [address] PCP - General Internal Medicine 12/07/20 Jere Sales [address] [place] [address] Referring Gastroenterology 12/05/20 Calin Clemente DO [address] [place] [address] Internal Medicine 10/16/23 Safety Council Director Relationship Specialty Start Date End Date Yuli Mariscal DO [address] [place] [facility] [place] [address] PCP - General Internal Medicine 12/07/20 Jere Sales [address] [facility] [address] [place] [address] Referring Gastroenterology 12/05/20 Calin Clemente DO [address] [place] [address] Internal Medicine 10/16/23 Safety Council Director Relationship Specialty Start Date End Date Yuli Mariscal DO [address] [place] [place] [address] PCP - General Internal Medicine 12/07/20 Jere Sales [address] [place] [address] Referring Gastroenterology 12/05/20 Calin Clemente DO [address] [place] [address] Internal Medicine 10/16/23 Safety Council Director Relationship Specialty Start Date End Date Yuli Mariscal DO [address] [place] [place] [address] PCP - General Internal Medicine 12/07/20 Jere Slaes [address] [facility] [address] [place] [address] Referring Gastroenterology 12/05/20 Calin Clemente DO [address] [place] [address] Internal Medicine 10/16/23 Safety Council Director Relationship Specialty Start Date End Date Yuli Mariscal DO [address] [place] [place] [address] PCP - General Internal Medicine 12/07/20 Jere Sales [address] [place] [address] Referring Gastroenterology 12/05/20 Calin Clemente DO [address] [place] [address] Internal Medicine 10/16/23 Safety Council Director Relationship Specialty Start Date End Date Yuli Mariscal DO [address] [place] [place] [address] PCP - General Internal Medicine 12/07/20 Jere Sales [address] [place] [address] Referring Gastroenterology 12/05/20 Calin Clemente DO [address] [place] [address] Internal Medicine 10/16/23 Safety Council Director Relationship Specialty Start Date End Date Yuli Mariscal DO [address] [place] [place] [address] PCP - General Internal Medicine 12/07/20 Jere Sales [address] [place] [address] Referring Gastroenterology 12/05/20 Calin Clemente DO [address] [place] [address] Internal Medicine 10/16/23 Safety Council Director Relationship Specialty Start Date End Date Yuli Mariscal DO [address] [place] [place] [address] PCP - General Internal Medicine 12/07/20 MerliamJere [address] [place] [address] Referring Gastroenterology 12/05/20 Calin Clemente DO [address] [place] [address] Internal Medicine 10/16/23 Safety Council Director Relationship Specialty Start Date End Date Yuli Mariscal DO [address] [place] [place] [address] PCP - General Internal Medicine 12/07/20 Jere Sales [address] [place] [address] Referring Gastroenterology 12/05/20 Calin Clemente DO [address] [place] [address] Internal Medicine 10/16/23 Safety Council Director Relationship Specialty Start Date End Date Yuli Mariscal DO [address] [place] [facility] [place] [address] PCP - General Internal Medicine 12/07/20 Jere Sales [address] [place] [address] Referring Gastroenterology 12/05/20 Calin Clemente DO [address] [place] [facility] [place] [address] Internal Medicine 10/16/23 Safety Council Director Relationship Specialty Start Date End Date Yuli Mariscal DO [address] [place] [place] [address] PCP - General Internal Medicine 12/07/20 Jere Sales [address] [place] [address] Referring Gastroenterology 12/05/20 Calin Clemente DO [address] [place] [address] Internal Medicine 10/16/23 Safety Council Director Relationship Specialty Start Date End Date Yuli Mariscal DO [address] [place] [facility] [place] [address] PCP - General Internal Medicine 12/07/20 Jere Sales [address] [place] [address] Referring Gastroenterology 12/05/20 Calin Clemente DO [address] [place] [address] Internal Medicine 10/16/23 Safety Council Director Relationship Specialty Start Date End Date Yuli Mariscal DO [address] [place] [facility] [place] [address] PCP - General Internal Medicine 12/07/20 Jere Sales [address] [place] [address] Referring Gastroenterology 12/05/20 Calin Clemente DO [address] [place] [address] Internal Medicine 10/16/23 Safety Council Director Relationship Specialty Start Date End Date Yuli Mariscal DO [address] [place] [facility] [place] [address] PCP - General Internal Medicine 12/07/20 Jere Sales [address] [place] [address] Referring Gastroenterology 12/05/20 Calin Clemente DO [address] [place] [address] Internal Medicine 10/16/23 Safety Council Director Relationship Specialty Start Date End Date Yuli Mariscal DO [address] [place] [place] [address] PCP - General Internal Medicine 12/07/20 Jere Sales [address] [place] [address] Referring Gastroenterology 12/05/20 Calin Clemente DO [address] [place] [address] Internal Medicine 10/16/23 Safety Council Director Relationship Specialty Start Date End Date Yuli Mariscal DO [address] [place] [place] [address] PCP - General Internal Medicine 12/07/20 Jere Sales [address] [facility] [address] [place] [address] Referring Gastroenterology 12/05/20 Calin Clemente DO [address] [place] [address] Internal Medicine 10/16/23 Safety Council Director Relationship Specialty Start Date End Date Yuli Mariscal DO [address] [place] [place] [address] PCP - General Internal Medicine 12/07/20 Jere Sales [address] [place] [address] Referring Gastroenterology 12/05/20 Calin Clemente DO [address] [place] [address] Internal Medicine 10/16/23 Safety Council Director Relationship Specialty Start Date End Date Yuli Mariscal DO [address] [place] [place] [address] PCP - General Internal Medicine 12/07/20 Jere Sales [address] [facility] [address] [place] [address] Referring Gastroenterology 12/05/20 Calin Clemente DO [address] [place] [address] Internal Medicine 10/16/23 Safety Council Director Relationship Specialty Start Date End Date Yuli Mariscal DO [address] [place] [place] [address] PCP - General Internal Medicine 12/07/20 Jere Sales [address] [place] [address] Referring Gastroenterology 12/05/20 Calin Clemente DO [address] [place] [address] Internal Medicine 10/16/23 Safety Council Director Relationship Specialty Start Date End Date Yuli Mariscal DO [address] [place] [address] PCP - General Internal Medicine 12/07/20 Jere Sales [address] [place] [address] Referring Gastroenterology 12/05/20 Calin Clemente DO [address] [place] [address] Internal Medicine 10/16/23 Safety Council Director Relationship Specialty Start Date End Date Yuli Mariscal DO [address] [place] [place] [address] PCP - General Internal Medicine 12/07/20 Jere Sales [address] [place] [address] Referring Gastroenterology 12/05/20 Calin Clemente DO [address] [place] [address] Internal Medicine 10/16/23 Safety Council Director Relationship Specialty Start Date End Date Yuli Mariscal DO [address] [place] [place] [address] PCP - General Internal Medicine 12/07/20 Jere Sales [address] [place] [address] Referring Gastroenterology 12/05/20 Calin Clemente DO [address] [place] [address] Internal Medicine 10/16/23 Safety Council Director Relationship Specialty Start Date End Date Yuli Mariscal DO [address] [place] [place] [address] PCP - General Internal Medicine 12/07/20 Jere Sales [address] [place] [address] Referring Gastroenterology 12/05/20 Calin Clemente DO [address] [place] [address] Internal Medicine 10/16/23 Safety Council Director Relationship Specialty Start Date End Date Yuli Mariscal DO [address] [place] [place] [address] PCP - General Internal Medicine 12/07/20 Jere Sales [address] [place] [address] Referring Gastroenterology 12/05/20 Calin Clemente DO [address] [place] [address] Internal Medicine 10/16/23 Safety Council Director Relationship Specialty Start Date End Date Yuli Mariscal DO [address] [place] [address] PCP - General Internal Medicine 12/07/20 Jere Sales [address] [place] [address] Referring Gastroenterology 12/05/20 Calin Clemente DO [address] [place] [address] Internal Medicine 10/16/23 Safety Council Director Relationship Specialty Start Date End Date Yuli Mariscal DO [address] [place] [address] PCP - General Internal Medicine 12/07/20 Jere Sales [address] [place] [address] Referring Gastroenterology 12/05/20 Calin Clemente DO [address] [place] [address] Internal Medicine 10/16/23 Safety Council Director Relationship Specialty Start Date End Date Yuli Mariscal DO [address] [place] [place] [address] PCP - General Internal Medicine 12/07/20 Jere Sales [address] [place] [address] Referring Gastroenterology 12/05/20 Calin Clemente DO [address] [place] [address] Internal Medicine 10/16/23 Safety Council Director Relationship Specialty Start Date End Date Yuli Mariscal DO [address] [place] [place] [address] PCP - General Internal Medicine 12/07/20 Jere Sales [address] [place] [address] Referring Gastroenterology 12/05/20 Calin Clemente DO [address] [place] [address] Internal Medicine 10/16/23 Safety Council Director Relationship Specialty Start Date End Date Yuli Mariscal DO [address] [place] [address] PCP - General Internal Medicine 12/07/20 Jere Sales [address] [place] [address] Referring Gastroenterology 12/05/20 Calin Clemente DO [address] [place] [address] Internal Medicine 10/16/23 Safety Council Director Relationship Specialty Start Date End Date Yuli Mariscal DO [address] [place] [address] PCP - General Internal Medicine 12/07/20 Jere Sales MD [address] [place] [address] [place] [address] Referring Gastroenterology 12/05/20 Calin Clemente DO [address] [place] [address] Internal Medicine 10/16/23 Safety Council Director Relationship Specialty Start Date End Date Yuli Mariscal DO [address] [place] [address] PCP - General Internal Medicine 06/29/14 Yuli Mariscal DO [address] [place] [address], [place] [address] Internal Medicine 06/29/14 Karthik Calloway MD [address] [place] [address], [place] [address] Consulting Physician Orthopedic Surgery 01/28/17 Safety Council Director Relationship Specialty Start Date End Date Yuli Mariscal DO [address] [place] [address] PCP - General Internal Medicine 12/07/20 Jere Sales MD [address] [place] [place] [address] [place] [address] Referring Gastroenterology 12/05/20 Calin Clemente DO [address] [place] [address] Internal Medicine 10/16/23 Safety Council Director Relationship Specialty Start Date End Date Yuli Mariscal DO [address] [place] [place] [address] PCP - General Internal Medicine 12/07/20 Jere Sales MD [address] [facility] [address] [place] [address] Referring Gastroenterology 12/05/20 Calin Clemente DO [address] [place] [address] Internal Medicine 10/16/23 Safety Council Director Relationship Specialty Start Date End Date Yuli Mariscal DO [address] [place] [address] PCP - General Internal Medicine 12/07/20 Jere Sales MD [address] [place] [address] Referring Gastroenterology 12/05/20 Calin Clemente DO [address] [place] [address] Internal Medicine 10/16/23 Safety Council Director Relationship Specialty Start Date End Date Yuli Mariscal DO [address] [place] [address] PCP - General Internal Medicine 12/07/20 Jere Sales MD [address] [facility] [address] [place] [address] Referring Gastroenterology 12/05/20 Calin Clemente DO [address] [place] [address] Internal Medicine 10/16/23 Safety Council Director Relationship Specialty Start Date End Date Yuli Mariscal DO [address] [place] [place] [address] PCP - General Internal Medicine 12/07/20 Jere Sales MD [address] [place] [address] Referring Gastroenterology 12/05/20 Calin Clemente DO [address] [place] [address] Internal Medicine 10/16/23 Safety Council Director Relationship Specialty Start Date End Date Yuli Mariscal DO [address] [place] [address] PCP - General Internal Medicine 12/07/20 Jere Sales MD [address] [place] [address] Referring Gastroenterology 12/05/20 Calin Clemente DO [address] [place] [address] Internal Medicine 10/16/23 Safety Council Director Relationship Specialty Start Date End Date Yuli Mariscal DO [address] [place] [place] [address] PCP - General Internal Medicine 12/07/20 Jere Sales MD [address] [place] [address] Referring Gastroenterology 12/05/20 Calin Clemente DO [address] [place] [address] Internal Medicine 10/16/23 Safety Council Director Relationship Specialty Start Date End Date Yuli Mariscal DO [address] [place] [place] [address] PCP - General Internal Medicine 12/07/20 Jere Sales MD [address] [place] [address] Referring Gastroenterology 12/05/20 Calin Clemente DO [address] [place] [address] Internal Medicine 10/16/23 Safety Council Director Relationship Specialty Start Date End Date Yuli Mariscal DO [address] [place] [place] [address] PCP - General Internal Medicine 12/07/20 Jere Sales MD [address] [place] [address] Referring Gastroenterology 12/05/20 Calin Clemente DO [address] [place] [address] Internal Medicine 10/16/23 Safety Council Director Relationship Specialty Start Date End Date Yuli Mariscal DO [address] [place] [address] PCP - General Internal Medicine 12/07/20 Jere Sales MD [address] [place] [address] Referring Gastroenterology 12/05/20 Calin Clemente DO [address] [place] [address] Internal Medicine 10/16/23 Safety Council Director Relationship Specialty Start Date End Date Yuli Mariscal DO [address] [place] [address] PCP - General Internal Medicine 12/07/20 Jere Sales MD [address] [place] [address] Referring Gastroenterology 12/05/20 Calin Clemente DO [address] [place] [address] Internal Medicine 10/16/23 Safety Council Director Relationship Specialty Start Date End Date Yuli Mariscal DO [address] [place] [address] PCP - General Internal Medicine 12/07/20 Jere Sales MD [address] [place] [address] Referring Gastroenterology 12/05/20 Calin Clemente DO [address] [place] [address] Internal Medicine 10/16/23 Safety Council Director Relationship Specialty Start Date End Date Yuli Mariscal DO [address] [place] [place] [address] PCP - General Internal Medicine 12/07/20 Jere Sales MD [address] [address] Referring Gastroenterology 12/05/20 Calin Clemente DO [address] [place] [address] Internal Medicine 10/16/23 Safety Council Director Relationship Specialty Start Date End Date Yuli aMriscal DO [address] [place] [address] PCP - General Internal Medicine 12/07/20 Jere Sales MD [address] [address] Referring Gastroenterology 12/05/20 Calin Clemente DO [address] [place] [address] Internal Medicine 10/16/23 Team Status: Active Member [...] September 11, 2024 End: September 11, 2024 Safety Council Director Relationship Specialty Start Date End Date Yuli Mariscal DO [address] [place] [address] PCP - General Internal Medicine 12/07/20 Jere Sales MD [address] [address] Referring Gastroenterology 12/05/20 Calin Clemente DO [address] [place] [address] Internal Medicine 10/16/23 Safety Council Director Relationship Specialty Start Date End Date Yuli Mariscal DO [address] [place] [address] PCP - General Internal Medicine 12/07/20 Jere Sales MD [address] [address] Referring Gastroenterology 12/05/20 Calin Clemente DO [address] [place] [address] Internal Medicine 10/16/23 Safety Council Director Relationship Specialty Start Date End Date Yuli Mariscal DO [address] [place] [place] [address] PCP - General Internal Medicine 12/07/20 Jere Sales MD [address] [place] [address] Referring Gastroenterology 12/05/20 Calin Clemente DO [address] [place] [address] Internal Medicine 10/16/23 Safety Council Director Relationship Specialty Start Date End Date Yuli Mariscal DO [address] [place] [place] [address] PCP - General Internal Medicine 12/07/20 Jere Sales MD [address] [place] [address] Referring Gastroenterology 12/05/20 Calin Clemente DO [address] [place] [address] Internal Medicine 10/16/23 Safety Council Director Relationship Specialty Start Date End Date Yuli Mariscal DO [address] [place] [address] PCP - General Internal Medicine 12/07/20 Jere Sales MD [address] [place] [address] Referring Gastroenterology 12/05/20 Calin Clemente DO [address] [place] [address] Internal Medicine 10/16/23 Safety Council Director Relationship Specialty Start Date End Date Yuli Mariscal DO [address] [place] [address] PCP - General Internal Medicine 12/07/20 Jere Sales MD [address] [place] [address] Referring Gastroenterology 12/05/20 Calin Clemente DO [address] [place] [address] Internal Medicine 10/16/23 Safety Council Director Relationship Specialty Start Date End Date Yuli Mariscal DO [address] [place] [place] [address] PCP - General Internal Medicine 12/07/20 Jere Sales MD [address] [place] [address] Referring Gastroenterology 12/05/20 Calin Clemente DO [address] [place] [address] Internal Medicine 10/16/23 Safety Council Director Relationship Specialty Start Date End Date Yuli Mariscal DO [address] [place] [address] PCP - General Internal Medicine 12/07/20 Jere Sales MD [address] [address] Referring Gastroenterology 12/05/20 Calin Clemente DO [address] [place] [address] Internal Medicine 10/16/23 Safety Council Director Relationship Specialty Start [place] [address] [place] [address] PCP - General Family Medicine 12/29/23 Jere Sales MD [address] [address] Referring Gastroenterology 12/05/20 Calin Clemente DO [address] [place] [address] Internal Medicine 10/16/23 Safety Council Director Relationship Specialty Start [place] [address] [place] [address] PCP - General Family Medicine 12/29/23 Jere Sales MD [address] [place] [address] Referring Gastroenterology 12/05/20 Calin Clemente DO [address] [place] [address] Internal Medicine 10/16/23 Safety Council Director Relationship Specialty Start [place] [address] [place] [address] PCP - General Family Medicine 12/29/23 Jere Sales MD [address] [place] [address] Referring Gastroenterology 12/05/20 Calin Clemente DO [address] [place] [address] Internal Medicine 10/16/23 Safety Council Director Relationship Specialty Start [place] [address] [place] [address] PCP - General Family Medicine 12/29/23 Jere Sales MD [address] [place] [address] Referring Gastroenterology 12/05/20 Calin Clemente DO [address] [place] [address] Internal Medicine 10/16/23 Safety Council Director Relationship Specialty Start [place] [address] [place] [address] PCP - General Family Medicine 12/29/23 Jere Sales MD [address] [place] [address] Referring Gastroenterology 12/05/20 Calin Clemente DO [address] [place] [address] Internal Medicine 10/16/23 Safety Council Director Relationship Specialty Start [place] [address] [place] [address] PCP - General Family Medicine 12/29/23 Jere Sales MD [address] [address] Referring Gastroenterology 12/05/20 Calin Clemente DO [address] [place] [address] Internal Medicine 10/16/23 Safety Council Director Relationship Specialty Start [place] [address] [place] [address] PCP - General Family Medicine 12/29/23 Jere Sales MD [address] [address] Referring Gastroenterology 12/05/20 Calin Clemente DO [address] [place] [address] Internal Medicine 10/16/23 Safety Council Director Relationship Specialty Start [place] [address] [place] [address] PCP - General Family Medicine 12/29/23 Jere Sales MD [address] [place] [address] Referring Gastroenterology 12/05/20 Calin Clemente DO [address] [place] [address] Internal Medicine 10/16/23 Safety Council Director Relationship Specialty Start [place] [address] [place] [address] PCP - General Family Medicine 12/29/23 Jere Sales MD [address] [address] Referring Gastroenterology 12/05/20 Calin Clemente DO [address] [place] [address] Internal Medicine 10/16/23 Safety Council Director Relationship Specialty Start [place] [address] [place] [address] PCP - General Family Medicine 12/29/23 Jere Sales MD [address] [address] Referring Gastroenterology 12/05/20 Calin Clemente DO [address] [place] [address] Internal Medicine 10/16/23 Safety Council Director Relationship Specialty Start [place] [address] [place] [address] PCP - General Family Medicine 12/29/23 Jere Sales MD [address] [address] Referring Gastroenterology 12/05/20 Calin Clemente DO [address] [place] [address] Internal Medicine 10/16/23 Safety Council Director Relationship Specialty Start [place] [address] [address] [address] PCP - General Family Medicine 12/29/23 Jere Sales MD [address] [address] Referring Gastroenterology 12/05/20 Calin Clemente DO [address] [place] [address] Internal Medicine 10/16/23 Safety Council Director Relationship Specialty Start [place] [address] [address] [address] PCP - General Family Medicine 12/29/23 Jere Sales MD [address] [place] [address] Referring Gastroenterology 12/05/20 Calin Clemente DO [address] [place] [address] Internal Medicine 10/16/23 Safety Council Director Relationship Specialty Start [place] [address] [place] [address] PCP - General Family Medicine 12/29/23 Jere Sales MD [address] [place] [address] Referring Gastroenterology 12/05/20 Calin Clemente DO [address] [place] [address] Internal Medicine 10/16/23 Safety Council Director Relationship Specialty Start [place] [address] [facility] [address] PCP - General Family Medicine 12/29/23 Jere Sales MD [address] [place] [address] Referring Gastroenterology 12/05/20 Calin Clemente DO [address] [place] [address] Internal Medicine 10/16/23 Safety Council Director Relationship Specialty Start [place] [address] [place] [address] PCP - General Family Medicine 12/29/23 Jere Sales MD [address] [place] [address] Referring Gastroenterology 12/05/20 Calin Clemente DO [address] [place] [address] Internal Medicine 10/16/23 Safety Council Director Relationship Specialty Start [place] [address] [place] [address] PCP - General Family Medicine 12/29/23 Jere Sales MD [address] [place] [address] Referring Gastroenterology 12/05/20 Calin Clemente DO [address] [place] [address] Internal Medicine 10/16/23 Safety Council Director Relationship Specialty Start [place] [address] [place] [address] PCP - General Family Medicine 12/29/23 Jere Sales MD [address] [address] Referring Gastroenterology 12/05/20 Calin Clemente DO [address] [place] [address] Internal Medicine 10/16/23 Safety Council Director Relationship Specialty Start [place] [address] [place] [address] PCP - General Family Medicine 12/29/23 Jere Sales MD [address] [address] Referring Gastroenterology 12/05/20 Calin Clemente DO [address] [place] [address] Internal Medicine 10/16/23 Safety Council Director Relationship Specialty Start [place] [address] [place] [address] PCP - General Family Medicine 12/29/23 Jere Sales MD [address] [address] Referring Gastroenterology 12/05/20 Calin Clemente DO [address] [place] [address] Internal Medicine 10/16/23 Safety Council Director Relationship Specialty Start Date End Date Yuli Mariscal DO [address] [place] [address] PCP - General Internal Medicine 03/12/25 Safety Council Director Relationship Specialty Start Date End Date Yuli Mariscal DO [address] [place] [address] PCP - General Internal Medicine 03/12/25 Safety Council Director Relationship Specialty Start Date End Date Yuli Mariscal DO [address] [place] [address] PCP - General Internal Medicine 03/12/25 Safety Council Director Relationship Specialty Start Date End Date Yuli Mariscal DO [address] [place] [address] PCP - General Internal Medicine 03/12/25 Safety Council Director Relationship Specialty Start Date End Date Yuli Mariscal DO [address] [place] [address] PCP - General Internal Medicine 03/12/25 Safety Council Director Relationship Specialty Start Date End Date Yuli Mariscal DO [address] [place] [address] PCP - General Internal Medicine 03/12/25 (unrecognized sect ion and content) No Status Records FoundNo Status Records FoundNo Status Records FoundNo Status Records FoundNo Status Records FoundNo Status Records FoundNo Status Records FoundNo Status Records FoundNo Status Records FoundNo Status Records Found INFORMATION SOURCE (unrecogn ized section and content) DATE CREATED AUTHOR 03/22/2022 [facility] DATE CREATED AUTHOR AUTHOR'S ORGANIZ ATION 02/16/2023 [facility] DATE CREATED AUTHOR AUTHOR'S ORGANIZ ATION 10/13/2023 [facility] DATE CREATED AUTHOR AUTHOR'S ORGANIZ ATION 03/19/2024 [facility] DATE CREATED AUTHOR AUTHOR'S ORGANIZ ATION 03/23/2024 [facility] DATE CREATED AUTHOR AUTHOR'S ORGANIZ ATION 05/02/2024 [facility] DATE CREATED AUTHOR AUTHOR'S ORGANIZ ATION 11/28/2024 [facility] DATE CREATED AUTHOR AUTHOR'S ORGANIZ ATION 03/27/2025 [facility] DATE CREATED AUTHOR AUTHOR'S ORGANIZ ATION 03/30/2025 [facility] DATE CREATED AUTHOR AUTHOR'S ORGANIZ ATION 03/31/2025 [facility] Goals (unrecognized section and content) Goals may be documented in a n alternate section Source Comments (unrecognize d section and content) In the event this informatio n is protected by the Federal Confidentiality of Alcohol and Drug Abuse Patient Records regulations: The Federal rules restrict any use of the information to criminally investigate or prosecute any alcohol or drug abuse patient.[facility] the event this information is protected by the Federal Confidentiality of Alcohol and Drug Abuse Patient Records regulations: The Federal rules restrict any use of the information to criminally investigate or prosecute any alcohol or drug abuse patient.[facility] Center[facility] the event this information is protected by the Federal Confidentiality of Alcohol and Drug Abuse Patient Records regulations: The Federal rules restrict any use of the information to criminally investigate or prosecute any alcohol or drug abuse patient.[facility] Center[facility] the event this information is protected by the Federal Confidentiality of Alcohol and Drug Abuse Patient Records regulations: The Federal rules restrict any use of the information to criminally investigate or prosecute any alcohol or drug abuse patient.[facility]In the event this information is protected by the Federal Confidentiality of Alcohol and Drug Abuse Patient Records regulations: The Federal rules restrict any use of the information to criminally investigate or prosecute any alcohol or drug abuse patient.[facility] CenterIn the event this information is protected by the Federal Confidentiality of Alcohol and Drug Abuse Patient Records regulations: The Federal rules restrict any use of the information to criminally investigate or prosecute any alcohol or drug abuse patient.[facility] CenterIn the event this information is protected by the Federal Confidentiality of Alcohol and Drug Abuse Patient Records regulations: The Federal rules restrict any use of the information to criminally investigate or prosecute any alcohol or drug abuse patient.[facility] CenterIn the event this information is protected by the Federal Confidentiality of Alcohol and Drug Abuse Patient Records regulations: The Federal rules restrict any use of the information to criminally investigate or prosecute any alcohol or drug abuse patient.[facility] CenterIn the event this information is protected by the Federal Confidentiality of Alcohol and Drug Abuse Patient Records regulations: The Federal rules restrict any use of the information to criminally investigate or prosecute any alcohol or drug abuse patient.[facility] CenterIn the event this information is protected by the Federal Confidentiality of Alcohol and Drug Abuse Patient Records regulations: The Federal rules restrict any use of the information to criminally investigate or prosecute any alcohol or drug abuse patient.[facility] CenterIn the event this information is protected by the Federal Confidentiality of Alcohol and Drug Abuse Patient Records regulations: The Federal rules restrict any use of the information to criminally investigate or prosecute any alcohol or drug abuse patient.[facility] CenterIn the event this information is protected by the Federal Confidentiality of Alcohol and Drug Abuse Patient Records regulations: The Federal rules restrict any use of the information to criminally investigate or prosecute any alcohol or drug abuse patient.[facility] CenterIn the event this information is protected by the Federal Confidentiality of Alcohol and Drug Abuse Patient Records regulations: The Federal rules restrict any use of the information to criminally investigate or prosecute any alcohol or drug abuse patient.[facility] CenterIn the event this information is protected by the Federal Confidentiality of Alcohol and Drug Abuse Patient Records regulations: The Federal rules restrict any use of the information to criminally investigate or prosecute any alcohol or drug abuse patient.[facility] CenterIn the event this information is protected by the Federal Confidentiality of Alcohol and Drug Abuse Patient Records regulations: The Federal rules restrict any use of the information to criminally investigate or prosecute any alcohol or drug abuse patient.[facility] CenterIn the event this information is protected by the Federal Confidentiality of Alcohol and Drug Abuse Patient Records regulations: The Federal rules restrict any use of the information to criminally investigate or prosecute any alcohol or drug abuse patient.[facility] CenterIn the event this information is protected by the Federal Confidentiality of Alcohol and Drug Abuse Patient Records regulations: The Federal rules restrict any use of the information to criminally investigate or prosecute any alcohol or drug abuse patient.[facility] CenterIn the event this information is protected by the Federal Confidentiality of Alcohol and Drug Abuse Patient Records regulations: The Federal rules restrict any use of the information to criminally investigate or prosecute any alcohol or drug abuse patient.[facility] CenterIn the event this information is protected by the Federal Confidentiality of Alcohol and Drug Abuse Patient Records regulations: The Federal rules restrict any use of the information to criminally investigate or prosecute any alcohol or drug abuse patient.[facility] CenterIn the event this information is protected by the Federal Confidentiality of Alcohol and Drug Abuse Patient Records regulations: The Federal rules restrict any use of the information to criminally investigate or prosecute any alcohol or drug abuse patient.[facility] CenterIn the event this information is protected by the Federal Confidentiality of Alcohol and Drug Abuse Patient Records regulations: The Federal rules restrict any use of the information to criminally investigate or prosecute any alcohol or drug abuse patient.[facility] CenterIn the event this information is protected by the Federal Confidentiality of Alcohol and Drug Abuse Patient Records regulations: The Federal rules restrict any use of the information to criminally investigate or prosecute any alcohol or drug abuse patient.[facility] CenterIn the event this information is protected by the Federal Confidentiality of Alcohol and Drug Abuse Patient Records regulations: The Federal rules restrict any use of the information to criminally investigate or prosecute any alcohol or drug abuse patient.[facility] CenterIn the event this information is protected by the Federal Confidentiality of Alcohol and Drug Abuse Patient Records regulations: The Federal rules restrict any use of the information to criminally investigate or prosecute any alcohol or drug abuse patient.[facility] CenterIn the event this information is protected by the Federal Confidentiality of Alcohol and Drug Abuse Patient Records regulations: The Federal rules restrict any use of the information to criminally investigate or prosecute any alcohol or drug abuse patient.[facility] CenterIn the event this information is protected by the Federal Confidentiality of Alcohol and Drug Abuse Patient Records regulations: The Federal rules restrict any use of the information to criminally investigate or prosecute any alcohol or drug abuse patient.[facility] CenterIn the event this information is protected by the Federal Confidentiality of Alcohol and Drug Abuse Patient Records regulations: The Federal rules restrict any use of the information to criminally investigate or prosecute any alcohol or drug abuse patient.[facility] CenterIn the event this information is protected by the Federal Confidentiality of Alcohol and Drug Abuse Patient Records regulations: The Federal rules restrict any use of the information to criminally investigate or prosecute any alcohol or drug abuse patient.[facility] CenterIn the event this information is protected by the Federal Confidentiality of Alcohol and Drug Abuse Patient Records regulations: The Federal rules restrict any use of the information to criminally investigate or prosecute any alcohol or drug abuse patient.[facility] CenterIn the event this information is protected by the Federal Confidentiality of Alcohol and Drug Abuse Patient Records regulations: The Federal rules restrict any use of the information to criminally investigate or prosecute any alcohol or drug abuse patient.[facility] CenterIn the event this information is protected by the Federal Confidentiality of Alcohol and Drug Abuse Patient Records regulations: The Federal rules restrict any use of the information to criminally investigate or prosecute any alcohol or drug abuse patient.[facility] CenterIn the event this information is protected by the Federal Confidentiality of Alcohol and Drug Abuse Patient Records regulations: The Federal rules restrict any use of the information to criminally investigate or prosecute any alcohol or drug abuse patient.[facility] CenterIn the event this information is protected by the Federal Confidentiality of Alcohol and Drug Abuse Patient Records regulations: The Federal rules restrict any use of the information to criminally investigate or prosecute any alcohol or drug abuse patient.[facility] CenterIn the event this information is protected by the Federal Confidentiality of Alcohol and Drug Abuse Patient Records regulations: The Federal rules restrict any use of the information to criminally investigate or prosecute any alcohol or drug abuse patient.[facility] CenterIn the event this information is protected by the Federal Confidentiality of Alcohol and Drug Abuse Patient Records regulations: The Federal rules restrict any use of the information to criminally investigate or prosecute any alcohol or drug abuse patient.[facility] CenterIn the event this information is protected by the Federal Confidentiality of Alcohol and Drug Abuse Patient Records regulations: The Federal rules restrict any use of the information to criminally investigate or prosecute any alcohol or drug abuse patient.[facility] CenterIn the event this information is protected by the Federal Confidentiality of Alcohol and Drug Abuse Patient Records regulations: The Federal rules restrict any use of the information to criminally investigate or prosecute any alcohol or drug abuse patient.[facility] CenterIn the event this information is protected by the Federal Confidentiality of Alcohol and Drug Abuse Patient Records regulations: The Federal rules restrict any use of the information to criminally investigate or prosecute any alcohol or drug abuse patient.[facility] CenterIn the event this information is protected by the Federal Confidentiality of Alcohol and Drug Abuse Patient Records regulations: The Federal rules restrict any use of the information to criminally investigate or prosecute any alcohol or drug abuse patient.[facility] CenterIn the event this information is protected by the Federal Confidentiality of Alcohol and Drug Abuse Patient Records regulations: The Federal rules restrict any use of the information to criminally investigate or prosecute any alcohol or drug abuse patient.[facility]In the event this information is protected by the Federal Confidentiality of Alcohol and Drug Abuse Patient Records regulations: The Federal rules restrict any use of the information to criminally investigate or prosecute any alcohol or drug abuse patient.[facility]In the event this information is protected by the Federal Confidentiality of Alcohol and Drug Abuse Patient Records regulations: The Federal rules restrict any use of the information to criminally investigate or prosecute any alcohol or drug abuse patient.[facility] CenterIn the event this information is protected by the Federal Confidentiality of Alcohol and Drug Abuse Patient Records regulations: The Federal rules restrict any use of the information to criminally investigate or prosecute any alcohol or drug abuse patient.[facility] CenterIn the event this information is protected by the Federal Confidentiality of Alcohol and Drug Abuse Patient Records regulations: The Federal rules restrict any use of the information to criminally investigate or prosecute any alcohol or drug abuse patient.[facility] CenterIn the event this information is protected by the Federal Confidentiality of Alcohol and Drug Abuse Patient Records regulations: The Federal rules restrict any use of the information to criminally investigate or prosecute any alcohol or drug abuse patient.[facility] CenterIn the event this information is protected by the Federal Confidentiality of Alcohol and Drug Abuse Patient Records regulations: The Federal rules restrict any use of the information to criminally investigate or prosecute any alcohol or drug abuse patient.[facility]In the event this information is protected by the Federal Confidentiality of Alcohol and Drug Abuse Patient Records regulations: The Federal rules restrict any use of the information to criminally investigate or prosecute any alcohol or drug abuse patient.[facility] CenterIn the event this information is protected by the Federal Confidentiality of Alcohol and Drug Abuse Patient Records regulations: The Federal rules restrict any use of the information to criminally investigate or prosecute any alcohol or drug abuse patient.[facility] CenterIn the event this information is protected by the Federal Confidentiality of Alcohol and Drug Abuse Patient Records regulations: The Federal rules restrict any use of the information to criminally investigate or prosecute any alcohol or drug abuse patient.[facility] CenterIn the event this information is protected by the Federal Confidentiality of Alcohol and Drug Abuse Patient Records regulations: The Federal rules restrict any use of the information to criminally investigate or prosecute any alcohol or drug abuse patient.[facility] CenterIn the event this information is protected by the Federal Confidentiality of Alcohol and Drug Abuse Patient Records regulations: The Federal rules restrict any use of the information to criminally investigate or prosecute any alcohol or drug abuse patient.[facility] CenterIn the event this information is protected by the Federal Confidentiality of Alcohol and Drug Abuse Patient Records regulations: The Federal rules restrict any use of the information to criminally investigate or prosecute any alcohol or drug abuse patient.[facility]In the event this information is protected by the Federal Confidentiality of Alcohol and Drug Abuse Patient Records regulations: The Federal rules restrict any use of the information to criminally investigate or prosecute any alcohol or drug abuse patient.[facility] CenterIn the event this information is protected by the Federal Confidentiality of Alcohol and Drug Abuse Patient Records regulations: The Federal rules restrict any use of the information to criminally investigate or prosecute any alcohol or drug abuse patient.[facility] CenterIn the event this information is protected by the Federal Confidentiality of Alcohol and Drug Abuse Patient Records regulations: The Federal rules restrict any use of the information to criminally investigate or prosecute any alcohol or drug abuse patient.[facility] CenterIn the event this information is protected by the Federal Confidentiality of Alcohol and Drug Abuse Patient Records regulations: The Federal rules restrict any use of the information to criminally investigate or prosecute any alcohol or drug abuse patient.[facility]In the event this information is protected by the Federal Confidentiality of Alcohol and Drug Abuse Patient Records regulations: The Federal rules restrict any use of the information to criminally investigate or prosecute any alcohol or drug abuse patient.[facility]In the event this information is protected by the Federal Confidentiality of Alcohol and Drug Abuse Patient Records regulations: The Federal rules restrict any use of the information to criminally investigate or prosecute any alcohol or drug abuse patient.[facility]In the event this information is protected by the Federal Confidentiality of Alcohol and Drug Abuse Patient Records regulations: The Federal rules restrict any use of the information to criminally investigate or prosecute any alcohol or drug abuse patient.[facility] CenterIn the event this information is protected by the Federal Confidentiality of Alcohol and Drug Abuse Patient Records regulations: The Federal rules restrict any use of the information to criminally investigate or prosecute any alcohol or drug abuse patient.[facility]In the event this information is protected by the Federal Confidentiality of Alcohol and Drug Abuse Patient Records regulations: The Federal rules restrict any use of the information to criminally investigate or prosecute any alcohol or drug abuse patient.[facility] CenterIn the event this information is protected by the Federal Confidentiality of Alcohol and Drug Abuse Patient Records regulations: The Federal rules restrict any use of the information to criminally investigate or prosecute any alcohol or drug abuse patient.[facility] CenterIn the event this information is protected by the Federal Confidentiality of Alcohol and Drug Abuse Patient Records regulations: The Federal rules restrict any use of the information to criminally investigate or prosecute any alcohol or drug abuse patient.[facility] CenterIn the event this information is protected by the Federal Confidentiality of Alcohol and Drug Abuse Patient Records regulations: The Federal rules restrict any use of the information to criminally investigate or prosecute any alcohol or drug abuse patient.[facility] CenterIn the event this information is protected by the Federal Confidentiality of Alcohol and Drug Abuse Patient Records regulations: The Federal rules restrict any use of the information to criminally investigate or prosecute any alcohol or drug abuse patient.[facility] CenterIn the event this information is protected by the Federal Confidentiality of Alcohol and Drug Abuse Patient Records regulations: The Federal rules restrict any use of the information to criminally investigate or prosecute any alcohol or drug abuse patient.[facility] CenterIn the event this information is protected by the Federal Confidentiality of Alcohol and Drug Abuse Patient Records regulations: The Federal rules restrict any use of the information to criminally investigate or prosecute any alcohol or drug abuse patient.[facility] CenterIn the event this information is protected by the Federal Confidentiality of Alcohol and Drug Abuse Patient Records regulations: The Federal rules restrict any use of the information to criminally investigate or prosecute any alcohol or drug abuse patient.[facility] CenterIn the event this information is protected by the Federal Confidentiality of Alcohol and Drug Abuse Patient Records regulations: The Federal rules restrict any use of the information to criminally investigate or prosecute any alcohol or drug abuse patient.[facility] CenterIn the event this information is protected by the Federal Confidentiality of Alcohol and Drug Abuse Patient Records regulations: The Federal rules restrict any use of the information to criminally investigate or prosecute any alcohol or drug abuse patient.[facility] CenterIn the event this information is protected by the Federal Confidentiality of Alcohol and Drug Abuse Patient Records regulations: The Federal rules restrict any use of the information to criminally investigate or prosecute any alcohol or drug abuse patient.[facility]In the event this information is protected by the Federal Confidentiality of Alcohol and Drug Abuse Patient Records regulations: The Federal rules restrict any use of the information to criminally investigate or prosecute any alcohol or drug abuse patient.[facility]In the event this information is protected by the Federal Confidentiality of Alcohol and Drug Abuse Patient Records regulations: The Federal rules restrict any use of the information to criminally investigate or prosecute any alcohol or drug abuse patient.[facility]In the event this information is protected by the Federal Confidentiality of Alcohol and Drug Abuse Patient Records regulations: The Federal rules restrict any use of the information to criminally investigate or prosecute any alcohol or drug abuse patient.[facility]In the event this information is protected by the Federal Confidentiality of Alcohol and Drug Abuse Patient Records regulations: The Federal rules restrict any use of the information to criminally investigate or prosecute any alcohol or drug abuse patient.[facility]In the event this information is protected by the Federal Confidentiality of Alcohol and Drug Abuse Patient Records regulations: The Federal rules restrict any use of the information to criminally investigate or prosecute any alcohol or drug abuse patient.[facility] CenterIn the event this information is protected by the Federal Confidentiality of Alcohol and Drug Abuse Patient Records regulations: The Federal rules restrict any use of the information to criminally investigate or prosecute any alcohol or drug abuse patient.[facility]In the event this information is protected by the Federal Confidentiality of Alcohol and Drug Abuse Patient Records regulations: The Federal rules restrict any use of the information to criminally investigate or prosecute any alcohol or drug abuse patient.[facility] CenterIn the event this information is protected by the Federal Confidentiality of Alcohol and Drug Abuse Patient Records regulations: The Federal rules restrict any use of the information to criminally investigate or prosecute any alcohol or drug abuse patient.[facility] CenterIn the event this information is protected by the Federal Confidentiality of Alcohol and Drug Abuse Patient Records regulations: The Federal rules restrict any use of the information to criminally investigate or prosecute any alcohol or drug abuse patient.[facility] CenterIn the event this information is protected by the Federal Confidentiality of Alcohol and Drug Abuse Patient Records regulations: The Federal rules restrict any use of the information to criminally investigate or prosecute any alcohol or drug abuse patient.[facility] CenterIn the event this information is protected by the Federal Confidentiality of Alcohol and Drug Abuse Patient Records regulations: The Federal rules restrict any use of the information to criminally investigate or prosecute any alcohol or drug abuse patient.[facility] CenterIn the event this information is protected by the Federal Confidentiality of Alcohol and Drug Abuse Patient Records regulations: The Federal rules restrict any use of the information to criminally investigate or prosecute any alcohol or drug abuse patient.[facility] CenterIn the event this information is protected by the Federal Confidentiality of Alcohol and Drug Abuse Patient Records regulations: The Federal rules restrict any use of the information to criminally investigate or prosecute any alcohol or drug abuse patient.[facility] CenterIn the event this information is protected by the Federal Confidentiality of Alcohol and Drug Abuse Patient Records regulations: The Federal rules restrict any use of the information to criminally investigate or prosecute any alcohol or drug abuse patient.[facility] CenterIn the event this information is protected by the Federal Confidentiality of Alcohol and Drug Abuse Patient Records regulations: The Federal rules restrict any use of the information to criminally investigate or prosecute any alcohol or drug abuse patient.[facility] CenterIn the event this information is protected by the Federal Confidentiality of Alcohol and Drug Abuse Patient Records regulations: The Federal rules restrict any use of the information to criminally investigate or prosecute any alcohol or drug abuse patient.[facility] CenterIn the event this information is protected by the Federal Confidentiality of Alcohol and Drug Abuse Patient Records regulations: The Federal rules restrict any use of the information to criminally investigate or prosecute any alcohol or drug abuse patient.[facility] CenterIn the event this information is protected by the Federal Confidentiality of Alcohol and Drug Abuse Patient Records regulations: The Federal rules restrict any use of the information to criminally investigate or prosecute any alcohol or drug abuse patient.[facility] CenterIn the event this information is protected by the Federal Confidentiality of Alcohol and Drug Abuse Patient Records regulations: The Federal rules restrict any use of the information to criminally investigate or prosecute any alcohol or drug abuse patient.[facility] CenterIn the event this information is protected by the Federal Confidentiality of Alcohol and Drug Abuse Patient Records regulations: The Federal rules restrict any use of the information to criminally investigate or prosecute any alcohol or drug abuse patient.[facility] CenterIn the event this information is protected by the Federal Confidentiality of Alcohol and Drug Abuse Patient Records regulations: The Federal rules restrict any use of the information to criminally investigate or prosecute any alcohol or drug abuse patient.[facility] CenterIn the event this information is protected by the Federal Confidentiality of Alcohol and Drug Abuse Patient Records regulations: The Federal rules restrict any use of the information to criminally investigate or prosecute any alcohol or drug abuse patient.[facility] CenterIn the event this information is protected by the Federal Confidentiality of Alcohol and Drug Abuse Patient Records regulations: The Federal rules restrict any use of the information to criminally investigate or prosecute any alcohol or drug abuse patient.[facility] CenterIn the event this information is protected by the Federal Confidentiality of Alcohol and Drug Abuse Patient Records regulations: The Federal rules restrict any use of the information to criminally investigate or prosecute any alcohol or drug abuse patient.[facility] CenterIn the event this information is protected by the Federal Confidentiality of Alcohol and Drug Abuse Patient Records regulations: The Federal rules restrict any use of the information to criminally investigate or prosecute any alcohol or drug abuse patient.[facility] CenterIn the event this information is protected by the Federal Confidentiality of Alcohol and Drug Abuse Patient Records regulations: The Federal rules restrict any use of the information to criminally investigate or prosecute any alcohol or drug abuse patient.[facility] CenterIn the event this information is protected by the Federal Confidentiality of Alcohol and Drug Abuse Patient Records regulations: The Federal rules restrict any use of the information to criminally investigate or prosecute any alcohol or drug abuse patient.[facility] CenterIn the event this information is protected by the Federal Confidentiality of Alcohol and Drug Abuse Patient Records regulations: The Federal rules restrict any use of the information to criminally investigate or prosecute any alcohol or drug abuse patient.[facility] CenterIn the event this information is protected by the Federal Confidentiality of Alcohol and Drug Abuse Patient Records regulations: The Federal rules restrict any use of the information to criminally investigate or prosecute any alcohol or drug abuse patient.[facility] CenterIn the event this information is protected by the Federal Confidentiality of Alcohol and Drug Abuse Patient Records regulations: The Federal rules restrict any use of the information to criminally investigate or prosecute any alcohol or drug abuse patient.[facility] CenterIn the event this information is protected by the Federal Confidentiality of Alcohol and Drug Abuse Patient Records regulations: The Federal rules restrict any use of the information to criminally investigate or prosecute any alcohol or drug abuse patient.[facility] CenterIn the event this information is protected by the Federal Confidentiality of Alcohol and Drug Abuse Patient Records regulations: The Federal rules restrict any use of the information to criminally investigate or prosecute any alcohol or drug abuse patient.[facility] CenterIn the event this information is protected by the Federal Confidentiality of Alcohol and Drug Abuse Patient Records regulations: The Federal rules restrict any use of the information to criminally investigate or prosecute any alcohol or drug abuse patient.[facility] CenterIn the event this information is protected by the Federal Confidentiality of Alcohol and Drug Abuse Patient Records regulations: The Federal rules restrict any use of the information to criminally investigate or prosecute any alcohol or drug abuse patient.[facility] CenterIn the event this information is protected by the Federal Confidentiality of Alcohol and Drug Abuse Patient Records regulations: The Federal rules restrict any use of the information to criminally investigate or prosecute any alcohol or drug abuse patient.[facility] CenterIn the event this information is protected by the Federal Confidentiality of Alcohol and Drug Abuse Patient Records regulations: The Federal rules restrict any use of the information to criminally investigate or prosecute any alcohol or drug abuse patient.[facility] CenterIn the event this information is protected by the Federal Confidentiality of Alcohol and Drug Abuse Patient Records regulations: The Federal rules restrict any use of the information to criminally investigate or prosecute any alcohol or drug abuse patient.[facility] CenterIn the event this information is protected by the Federal Confidentiality of Alcohol and Drug Abuse Patient Records regulations: The Federal rules restrict any use of the information to criminally investigate or prosecute any alcohol or drug abuse patient.[facility] CenterIn the event this information is protected by the Federal Confidentiality of Alcohol and Drug Abuse Patient Records regulations: The Federal rules restrict any use of the information to criminally investigate or prosecute any alcohol or drug abuse patient.[facility] CenterIn the event this information is protected by the Federal Confidentiality of Alcohol and Drug Abuse Patient Records regulations: The Federal rules restrict any use of the information to criminally investigate or prosecute any alcohol or drug abuse patient.[facility] CenterIn the event this information is protected by the Federal Confidentiality of Alcohol and Drug Abuse Patient Records regulations: The Federal rules restrict any use of the information to criminally investigate or prosecute any alcohol or drug abuse patient.[facility] CenterIn the event this information is protected by the Federal Confidentiality of Alcohol and Drug Abuse Patient Records regulations: The Federal rules restrict any use of the information to criminally investigate or prosecute any alcohol or drug abuse patient.[facility] CenterIn the event this information is protected by the Federal Confidentiality of Alcohol and Drug Abuse Patient Records regulations: The Federal rules restrict any use of the information to criminally investigate or prosecute any alcohol or drug abuse patient.[facility] CenterIn the event this information is protected by the Federal Confidentiality of Alcohol and Drug Abuse Patient Records regulations: The Federal rules restrict any use of the information to criminally investigate or prosecute any alcohol or drug abuse patient.[facility] CenterIn the event this information is protected by the Federal Confidentiality of Alcohol and Drug Abuse Patient Records regulations: The Federal rules restrict any use of the information to criminally investigate or prosecute any alcohol or drug abuse patient.[facility] CenterIn the event this information is protected by the Federal Confidentiality of Alcohol and Drug Abuse Patient Records regulations: The Federal rules restrict any use of the information to criminally investigate or prosecute any alcohol or drug abuse patient.[facility] CenterIn the event this information is protected by the Federal Confidentiality of Alcohol and Drug Abuse Patient Records regulations: The Federal rules restrict any use of the information to criminally investigate or prosecute any alcohol or drug abuse patient.[facility] CenterIn the event this information is protected by the Federal Confidentiality of Alcohol and Drug Abuse Patient Records regulations: The Federal rules restrict any use of the information to criminally investigate or prosecute any alcohol or drug abuse patient.[facility] CenterIn the event this information is protected by the Federal Confidentiality of Alcohol and Drug Abuse Patient Records regulations: The Federal rules restrict any use of the information to criminally investigate or prosecute any alcohol or drug abuse patient.[facility] CenterIn the event this information is protected by the Federal Confidentiality of Alcohol and Drug Abuse Patient Records regulations: The Federal rules restrict any use of the information to criminally investigate or prosecute any alcohol or drug abuse patient.[facility] CenterIn the event this information is protected by the Federal Confidentiality of Alcohol and Drug Abuse Patient Records regulations: The Federal rules restrict any use of the information to criminally investigate or prosecute any alcohol or drug abuse patient.[facility] CenterIn the event this information is protected by the Federal Confidentiality of Alcohol and Drug Abuse Patient Records regulations: The Federal rules restrict any use of the information to criminally investigate or prosecute any alcohol or drug abuse patient.[facility] CenterIn the event this information is protected by the Federal Confidentiality of Alcohol and Drug Abuse Patient Records regulations: The Federal rules restrict any use of the information to criminally investigate or prosecute any alcohol or drug abuse patient.[facility] CenterIn the event this information is protected by the Federal Confidentiality of Alcohol and Drug Abuse Patient Records regulations: The Federal rules restrict any use of the information to criminally investigate or prosecute any alcohol or drug abuse patient.[facility] CenterIn the event this information is protected by the Federal Confidentiality of Alcohol and Drug Abuse Patient Records regulations: The Federal rules restrict any use of the information to criminally investigate or prosecute any alcohol or drug abuse patient.[facility] CenterIn the event this information is protected by the Federal Confidentiality of Alcohol and Drug Abuse Patient Records regulations: The Federal rules restrict any use of the information to criminally investigate or prosecute any alcohol or drug abuse patient.[facility] CenterIn the event this information is protected by the Federal Confidentiality of Alcohol and Drug Abuse Patient Records regulations: The Federal rules restrict any use of the information to criminally investigate or prosecute any alcohol or drug abuse patient.[facility] CenterIn the event this information is protected by the Federal Confidentiality of Alcohol and Drug Abuse Patient Records regulations: The Federal rules restrict any use of the information to criminally investigate or prosecute any alcohol or drug abuse patient.[facility] CenterIn the event this information is protected by the Federal Confidentiality of Alcohol and Drug Abuse Patient Records regulations: The Federal rules restrict any use of the information to criminally investigate or prosecute any alcohol or drug abuse patient.[facility] CenterIn the event this information is protected by the Federal Confidentiality of Alcohol and Drug Abuse Patient Records regulations: The Federal rules restrict any use of the information to criminally investigate or prosecute any alcohol or drug abuse patient.[facility] CenterIn the event this information is protected by the Federal Confidentiality of Alcohol and Drug Abuse Patient Records regulations: The Federal rules restrict any use of the information to criminally investigate or prosecute any alcohol or drug abuse patient.[facility] CenterIn the event this information is protected by the Federal Confidentiality of Alcohol and Drug Abuse Patient Records regulations: The Federal rules restrict any use of the information to criminally investigate or prosecute any alcohol or drug abuse patient.[facility] CenterIn the event this information is protected by the Federal Confidentiality of Alcohol and Drug Abuse Patient Records regulations: The Federal rules restrict any use of the information to criminally investigate or prosecute any alcohol or drug abuse patient.[facility] CenterIn the event this information is protected by the Federal Confidentiality of Alcohol and Drug Abuse Patient Records regulations: The Federal rules restrict any use of the information to criminally investigate or prosecute any alcohol or drug abuse patient.[facility] CenterIn the event this information is protected by the Federal Confidentiality of Alcohol and Drug Abuse Patient Records regulations: The Federal rules restrict any use of the information to criminally investigate or prosecute any alcohol or drug abuse patient.[facility] CenterIn the event this information is protected by the Federal Confidentiality of Alcohol and Drug Abuse Patient Records regulations: The Federal rules restrict any use of the information to criminally investigate or prosecute any alcohol or drug abuse patient.[facility] CenterIn the event this information is protected by the Federal Confidentiality of Alcohol and Drug Abuse Patient Records regulations: The Federal rules restrict any use of the information to criminally investigate or prosecute any alcohol or drug abuse patient.[facility] CenterIn the event this information is protected by the Federal Confidentiality of Alcohol and Drug Abuse Patient Records regulations: The Federal rules restrict any use of the information to criminally investigate or prosecute any alcohol or drug abuse patient.[facility] FOR RECORDS PERTAINING TO PATIENTS [...] BE BASED ON THE PRIMARY CLINICAL RECORDS. [facility] [employer] [facility]. provides no warranty or guarantee of the accuracy or completeness of information in this document.
[2025-04-02] MEDS: DOXYCYCLINE HYCLATE 100 MG in 0.9 % SODIUM CHLORIDE 100 ML IV ×2 (13:11→23:31)
--- NOTE | 2025-04-02 13:38 | PM.HP ---
HPI H&P: HPI History of Present Illness Chief complaint: L LEG PAIN, L LEG CELLULITIS Narrative: Patient is a 75-year-old male with medical history as listed below who presented to the ER accompanied by his due to worsening left lower extremity pain and swelling that developed over the past couple days. provided most of the history for the patient, she reports that patient developed this on Saturday couple days ago and he was seen by his PCP and was prescribed Keflex and patient has taken it with no relief, she reports that he had a fever at home and was nauseated with episodes of bilious emesis, also reported decreased appetite and dehydration. Patient held his diuretics at home since he felt dehydrated and thirsty. His reports that patient has been undergoing further evaluation regarding abdominal ascites with concerns about liver cirrhosis, he did have pleural effusion and is not getting releases and then since then there has not been any recurrence of pleural effusion however now undergoing investigation at [facility] regarding ascites, never had paracentesis in the past, controlled with diuretics at this time, he supposed to get EGD with banding for his esophageal varices next week. Here in the ER, patient is afebrile, has leukocytosis with WBC 12.5. Creatinine a little bit increased from baseline, lactate within normal limit, total bilirubin 1.6, direct bili 0.5, AST and ALT within normal limits, CRB 4.85 and ESR 126. Blood cultures collected in the ER. patient was given Unasyn and doxycycline in the ER and decision was made to admit him for further evaluation and management. Opioid HPI Opioid Management Most Recent Pain and Opioid Data: Last Pain Scale 9 Today, 13:55 Last Pain Assessment Today, 13:00 Last MAR Pain Assessment Today, 13:55 Last ORT Total Score 0 Today, 12:34 Last ORT Risk Category Low Risk Today, 12:34 Review of Systems ROS Status of ROS 10 or more systems reviewed and unremarkable except as noted in history and below [facility] Medical History Ascites ?R18.8 - Other ascites (ICD-10) Leg edema ?R60.0 - Localized edema (ICD-10) Pleural effusion, right ?J90 - Pleural effusion, not elsewhere classified (ICD-10) Gout ?M10.9 - Gout, unspecified (ICD-10) Hyperlipidemia ?E78.5 - Hyperlipidemia, unspecified (ICD-10) Recurrent right pleural effusion ?J90 - Pleural effusion, not elsewhere classified (ICD-10) Right hand fracture ?S62.91XA - Unspecified fracture of right wrist and hand, initial encounter for closed fracture (ICD-10) Lymphocytic colitis ?K52.832 - Lymphocytic colitis (ICD-10) Surgical History Hx of knee surgery ?Z98.890 - Other specified postprocedural states (ICD-10) History of cataract surgery ?Z98.49 - Cataract extraction status, unspecified eye (ICD-10) Family History Grandmother Family history of diabetes mellitus Father Family history of hypertension Family history of myocardial infarction Brother Family history of hypertension Social History Within the past year, how often did you have a drink containing alcohol: never Score interpretation: A score less than 4 is consistent with normal alcohol consumption. Smoking status: Never smoker Non-prescribed substance use: denies use Highest level of school completed/degree received: Bachelor's degree Are you now , , , , never or living with a partner: Little interest or pleasure in doing things: not at all Feeling down, depressed, or hopeless: not at all Feel stressed/tense/nervous/anxious/difficulty sleeping: to some extent Do you think of yourself as: straight/heterosexual Gender Identity: male Meds Home Medications and Allergies Home Medications ?Medication ?Instructions ?Recorded ?Confirmed ?Type allopurinol 300 mg tablet 300 mg PO DAILY 08/15/23 04/02/25 History atorvastatin 10 mg tablet 10 mg PO QPM 08/15/23 04/02/25 History Held on 12/25/24. Instructions: Doctor's Order ascorbic acid (vitamin C) 500 mg 500 mg PO BID 08/30/24 04/02/25 History chewable tablet (C-500) dextromethorphan-guaifenesin 30 1 tab PO Q12H 08/30/24 04/02/25 History mg-600 mg tablet extended hr (Mucinex DM) loratadine 10 mg tablet (Loradamed) 10 mg PO DAILY 08/30/24 04/02/25 History Held on 04/02/25. Instructions: Doctor's Order metolazone 5 mg tablet 5 mg PO QDAY 08/30/24 04/02/25 History Held on 04/02/25. Instructions: Doctor's Order zekriwqoehxc-bsvsaphu-siesdi 1 tab PO DAILY 08/30/24 04/02/25 History tablet (Milltrium Senior tablet) pantoprazole 40 mg granules 40 mg PO BID 08/30/24 04/02/25 History delayed-release for susp in packet (Protonix) quinine sulfate 324 mg capsule 324 mg PO Q12H 08/30/24 04/02/25 History torsemide 100 mg tablet 100 mg PO QDAY 08/30/24 04/02/25 History potassium chloride 20 mEq 40 meq (2 x 20 mEq) PO BID #0 tabs 08/31/24 04/02/25 Rx tablet,extended release(part/cryst) cephalexin 500 mg capsule 500 mg PO BID 7 days #14 caps 12/25/24 04/02/25 Rx famotidine 20 mg tablet 20 mg PO DAILY 12/25/24 04/02/25 History mirabegron 50 mg tablet,extended 50 mg PO QPM 12/25/24 04/02/25 History release 24 hr spironolactone 25 mg tablet 25 mg PO QAM 12/25/24 04/02/25 History sucralfate 1 gram tablet 1 g PO ACHS 12/25/24 04/02/25 History Held on 04/02/25. Instructions: Doctor's Order Allergies Allergy/AdvReac Type Severity Reaction Status Date / Time tramadol Allergy Severe Hallucinati Verified 04/02/25 09:38 ng Exam Narrative Exam Narrative: Const General: cooperative HEENT Normal oropharyngeal mucosa without any ulcers or exudates Eyes: Conjunctiva normal Pulmonary Auscultation: Slightly diminished breath sounds, no crackles, no wheezes Cardiovascular Rate: normal rate Rhythm: regular rhythm Heart Sounds: S1 normal, S2 normal and no murmurs GI Inspection: mildly distended Palpation: soft, not firm and nontender. No rigidity or rebound. Deferred Neuro General: alert, awake and oriented x3. No obvious new focal deficit Musculoskeletal: normal range of motion Extrem LLE: redness, erythema, edema noted on Left foot extending to LLE above knee medially. L 2nd tip of toe dry small wound, no discharge. Psych Appearance: appropriate affect. Grossly normal Constitutional Vital Signs, click to edit/add: Last Vital Signs Temp 98.1 F 04/02/25 11:27 Pulse 93 H 04/02/25 11:30 Resp 20 04/02/25 11:30 BP 122/75 04/02/25 11:30 Pulse Ox 98 04/02/25 11:30 O2 Del Method Room Air 04/02/25 09:28 Results Labs Labs: Short CBC 04/02/25 Range/Units 09:44 WBC 12.7 H (4.0-11.0) 10^3/uL Hgb 11.1 L (14.0-18.0) g/dL Hct 34.3 L (42.0-54.0) % Plt Count 241 (150-450) 10^3/uL BMP 04/02/25 09:44 Sodium 136 Potassium 4.8 Chloride 101 Carbon Dioxide 24.6 BUN 31.0 H Creatinine 1.74 H Glucose 109 H Calcium 9.1 Liver Function 04/02/25 Range/Units 09:44 Total Bilirubin 1.6 H (0.2-1.0) mg/dL Direct Bilirubin 0.5 H (0.0-0.2) mg/dL AST 13 L (15-37) U/L ALT 21 (16-63) U/L Alkaline Phosphatase 101 (46-116) U/L Albumin 3.1 L (3.4-5.0) g/dL Assessment and Plan Assessment and Plan (1) Cellulitis of left leg: Plan Left Lower extremity cellulitis Concern for sepsis -Failed outpatient oral antibiotics -Febrile at home per , nausea and vomiting, had systemic symptoms. -Follow-up blood culture -elevated ESR, CRP -Start IV antibiotics with Unasyn and doxycycline -Pain control as needed -Will hold diuretics for now and provide gentle hydration as patient is volume depleted at this time -Pt follows with podiatry as outpatient Patient has chronic conditions of previous pleural effusion and did not of getting pleurodesis with no further recurrence and effusion, he does have ascites and been investigated for possibility of liver cirrhosis with [facility] team and he supposed to see a liver clinic before Thanksgiving. DVT ppx: Lovenox Diet: regular Discussed with patient and his at length at bedside, all question answered, they are in agreement and comfortable with the above plan
[2025-04-02] MEDS: ENOXAPARIN SODIUM 40 MG/0.4 ML SYRINGE SUBQ (13:55)
[2025-04-02] MEDS: HYDROMORPHONE HCL 0.5 MG/0.5 ML SYRINGE IV (13:55)
--- NOTE | 2025-04-02 15:47 | SWNOTE1 ---
Important Message from [employer] reviewed and discussed with patient. Pt. verbalized understanding and signed the form. Original given to patient and copy placed in patient?s chart.
--- NOTE | 2025-04-02 15:47 | SWNOTE1 ---
RHONDA met with pt to discusss dc needs. Pt lives at home with his . Pt is independent and does not use any DME at home. Pt does go to outpatient therapy, he does this at [place]. Pt denies any discharge needs and his plan is to return home and resume outpatient therapy.
[2025-04-02] MEDS: OXYBUTYNIN CHLORIDE 5 MG TAB XL 10 MG PO (21:54)
[2025-04-02] MEDS: PANTOPRAZOLE SODIUM 40 MG TABLET.DR PO (21:54)
[2025-04-02 22:51] LABS: Glucose Urine UA NEGATIVE (NEGATIVE)
[2025-04-02 22:58] LABS: Cast Seen? SEEN #/LPF (NONE SEEN); Crystals Seen? None Seen #/HPF (None Seen); Urine Culture Indicated NO
[2025-04-02] MEDS: ZOLPIDEM TARTRATE 10 MG TABLET PO (23:31)
[2025-04-03] VITALS (17 sets, daily range): BP systolic 102–123; BP diastolic 67–78; PULSE 84–97; TEMP 36.7–37.1; O2SAT 91–96
[2025-04-03] MEDS: AMPICILLIN SODIUM/SULBACTAM NA 3 GM in 0.9 % SODIUM CHLORIDE 100 ML IV ×4 (02:51→21:44)
[2025-04-03 06:53] LABS: Hematocrit 30.8 % (42.0-54.0); Hemoglobin 9.6 g/dL (14.0-18.0); Mean Corpuscular HGB Conc 31.2 g/dL (29.9-35.2); Mean Corpuscular Hemoglobin 30.2 pg (25.9-34.0); Mean Corpuscular Volume 96.9 fL (80.0-94.0); Platelet Count 210 10^3/uL (150-450); Red Blood Count 3.18 10^6/uL (4.70-6.10); White Blood Count 9.8 10^3/uL (4.0-11.0)
[2025-04-03 07:06] LABS: Anion Gap 16.3; Blood Urea Nitrogen 31.0 mg/dL (7.0-18.0); Calcium 8.6 mg/dL (8.5-10.1); Carbon Dioxide 24.6 mmol/L (21.0-32.0); Chloride 101 mmol/L (98-107); Estimated GFR (African America >60 (>=60 mL/min/1.73m^2); Estimated GFR (Non-African Ame 53 (>=60 mL/min/1.73m^2); Glucose 105 mg/dL (74-106); Potassium 3.9 mmol/L (3.5-5.1); Sodium 138 mmol/L (136-145)
[2025-04-03 07:20] LABS: Basophils Abs Manual 0.19 10^3/uL (0.00-0.10); Basophils Percent Manual 2.0 % (0.2-2.0); Eosinophils Absolute Manual 0.00 10^3/uL (0.00-0.70); Eosinophils Percent Manual 0.0 % (0.9-7.0); Lymphocytes Absolute Manual 0.98 10^3/uL (1.20-3.80); Lymphocytes Percent Manual 10.0 % (20.5-60.0); Monocytes Absolute Manual 0.39 10^3/uL (0.30-0.80); Monocytes Percent Manual 4.0 % (1.7-12.0); Segmented Neut Absolute Manual 8.23 10^3/uL (1.4-6.5); Segmented Neutrophils % Manual 84.0 (43.0-75.0)
[2025-04-03] MEDS: ALLOPURINOL 300 MG TABLET PO (09:04)
[2025-04-03] MEDS: PANTOPRAZOLE SODIUM 40 MG TABLET.DR PO ×2 (09:04→21:44)
[2025-04-03] MEDS: ENOXAPARIN SODIUM 40 MG/0.4 ML SYRINGE SUBQ (09:04)
[2025-04-03] MEDS: FAMOTIDINE 20 MG TABLET PO (09:04)
[2025-04-03] MEDS: OXYCODONE HCL/ACETAMINOPHEN 5MG/325MG 1 TAB PO (09:30)
--- NOTE | 2025-04-03 09:33 | XR_ITS ---
The [address] [address] Patient Name: SAV RAYMUNDO MRN: [id number] date: 1950 Sex: M Assigned Patient Location: [place] Current Patient Location: [place] Accession/Order Number: [id number] Exam Date: 04/03/2025 10:02 Report Date: 04/03/2025 10:31 At the request of: JEANINE FERREIRA MD Procedure: XR foot LT 2V XR foot LT 2V 04/03/2025 10:04 AM SIGNS AND SYMPTOMS: ^left foot swelling PROTOCOL: Frontal and lateral graphs of the left foot COMPARISON: None FINDINGS: Moderate to severe degenerative changes are noted in the first metatarsophalangeal joint space. There is no acute displaced fracture. There is diffuse soft tissue swelling. No osteolytic or bony destructive process is noted to suggest osteomyelitis. XR/XR foot LT 2V IMPRESSION: There is no acute displaced fracture. There is diffuse soft tissue swelling. No osteolytic or bony destructive process is noted to suggest osteomyelitis. Impression dictated by: Bryn Harris M.D. 04/03/2025 10:31 AM Dictation Location: [place] [address] Electronically authenticated by: [id number] Y Date: 04/03/2025 10:31
[2025-04-03] MEDS: DOXYCYCLINE HYCLATE 100 MG in 0.9 % SODIUM CHLORIDE 100 ML IV ×2 (10:55→23:23)
--- NOTE | 2025-04-03 12:08 | PM.PN ---
Progress Note: Subjective Subjective Interval history: Patient was seen evaluated at bedside, he remained afebrile here, WBC has normalized, kidney function also improved, hemodynamics more stable today, he denies any nausea or vomiting, tolerating oral intake, feels overall better, left lower extremity slowly improving, remains on IV antibiotics. Exam Narrative Exam Narrative: Exam Narrative: Const General: cooperative HEENT Normal oropharyngeal mucosa without any ulcers or exudates Eyes: Conjunctiva normal Pulmonary Auscultation: Slightly diminished breath sounds, no crackles, no wheezes Cardiovascular Rate: normal rate Rhythm: regular rhythm Heart Sounds: S1 normal, S2 normal and no murmurs GI Inspection: mildly distended Palpation: soft, not firm and nontender. No rigidity or rebound. Deferred Neuro General: alert, awake and oriented x3. No obvious new focal deficit Musculoskeletal: normal range of motion Extrem LLE: redness, erythema, edema noted on Left foot extending to LLE above knee medially- improving. L 2nd tip of toe dry small wound, no discharge. Psych Appearance: appropriate affect. Grossly normal Constitutional Vital Signs, click to edit/add: Last Vital Signs Temp 98.2 F 04/03/25 07:47 Pulse 84 04/03/25 11:55 Resp 16 04/03/25 07:47 BP 123/78 04/03/25 07:47 Pulse Ox 96 04/03/25 07:47 O2 Del Method Room Air 04/03/25 07:47 Progress Note: Objective Labs Labs: Short CBC 04/03/25 Range/Units 06:05 WBC 9.8 (4.0-11.0) 10^3/uL Hgb 9.6 L (14.0-18.0) g/dL Hct 30.8 L (42.0-54.0) % Plt Count 210 (150-450) 10^3/uL BMP 04/03/25 06:05 Sodium 138 Potassium 3.9 Chloride 101 Carbon Dioxide 24.6 BUN 31.0 H Creatinine 1.32 H Glucose 105 Calcium 8.6 Urine 04/02/25 Range/Units 22:43 Urine Color Yellow (YELLOW) Urine Clarity Clear (CLEAR) Urine pH 5.5 (5.0-9.0) Ur Specific [place] 1.025 (1.005-1.025) Urine Protein 30 A (NEG/TRACE) mg/dL Urine Glucose (UA) Negative (NEGATIVE) mg/dL Progress Note: A&P Assessment and Plan (1) Cellulitis of left leg: Plan Left Lower extremity cellulitis Concern for sepsis -Failed outpatient oral antibiotics with Keflex and Augmentin -Xray of foot showed soft tissue swelling, no OM or fractures. -Afebrile here, WBC has normalized. clinically improving -Follow-up blood culture -elevated ESR, CRP- trend -Continue IV antibiotics with Unasyn and doxycycline -Pain control as needed -Will hold diuretics for now and provide gentle hydration as patient is volume depleted at this time. Restart if needed. -Pt follows with podiatry as outpatient Patient has chronic conditions of previous pleural effusion and did not of getting pleurodesis with no further recurrence and effusion, he does have ascites and been investigated for possibility of liver cirrhosis with [facility] team and he supposed to see a liver clinic before Thanksgiving. DVT ppx: Lovenox Diet: regular Discussed with patient and his at length at bedside, all question answered, they are in agreement and comfortable with the above plan Continue to maintain current management
[2025-04-03] MEDS: OXYBUTYNIN CHLORIDE 5 MG TAB XL 10 MG PO (21:43)
[2025-04-03] MEDS: ZOLPIDEM TARTRATE 10 MG TABLET PO (21:44)
[2025-04-03] MEDS: QUININE SULFATE 324 MG 324 EACH PO (21:45)
[2025-04-04] VITALS (17 sets, daily range): BP systolic 104–143; BP diastolic 69–83; PULSE 85–101; TEMP 36.4–37; O2SAT 92–98
[2025-04-04] MEDS: AMPICILLIN SODIUM/SULBACTAM NA 3 GM in 0.9 % SODIUM CHLORIDE 100 ML IV ×4 (02:27→20:36)
[2025-04-04 06:26] LABS: Hematocrit 32.0 % (42.0-54.0); Hemoglobin 10.2 g/dL (14.0-18.0); Immature Granulocytes Abs Auto 0.06 10^3/uL (0.00-0.03); Immature Granulocytes Pct Auto 0.6 % (0.0-0.5); Lymphocytes Absolute Auto 0.9 10^3/uL (1.2-3.8); Mean Corpuscular HGB Conc 31.9 g/dL (29.9-35.2); Mean Corpuscular Hemoglobin 30.9 pg (25.9-34.0); Mean Corpuscular Volume 97.0 fL (80.0-94.0); Platelet Count 231 10^3/uL (150-450); Red Blood Count 3.30 10^6/uL (4.70-6.10); White Blood Count 10.2 10^3/uL (4.0-11.0)
[2025-04-04 06:48] LABS: Alanine Aminotransferase 20 U/L (16-63); Albumin Globulin Ratio 0.6; Albumin Level 2.7 g/dL (3.4-5.0); Alkaline Phosphatase 91 U/L (46-116); Anion Gap 14.6; Aspartate Amino Transferase <5 U/L (15-37); Blood Urea Nitrogen 34.0 mg/dL (7.0-18.0); Calcium 8.7 mg/dL (8.5-10.1); Carbon Dioxide 25.9 mmol/L (21.0-32.0); Chloride 101 mmol/L (98-107); Estimated GFR (African America 55 (>=60 mL/min/1.73m^2); Estimated GFR (Non-African Ame 46 (>=60 mL/min/1.73m^2); Globulin 4.2 g/dL; Glucose 115 mg/dL (74-106); Potassium 3.5 mmol/L (3.5-5.1); Sodium 138 mmol/L (136-145); Total Protein 6.9 g/dL (6.4-8.2)
[2025-04-04] MEDS: QUININE SULFATE 324 MG 324 EACH PO ×2 (08:00→20:37)
[2025-04-04] MEDS: FAMOTIDINE 20 MG TABLET PO (09:23)
[2025-04-04] MEDS: ALLOPURINOL 300 MG TABLET PO (09:23)
[2025-04-04] MEDS: PANTOPRAZOLE SODIUM 40 MG TABLET.DR PO ×2 (09:23→20:37)
[2025-04-04] MEDS: ENOXAPARIN SODIUM 40 MG/0.4 ML SYRINGE SUBQ (09:23)
[2025-04-04] MEDS: DOXYCYCLINE HYCLATE 100 MG in 0.9 % SODIUM CHLORIDE 100 ML IV ×2 (11:35→22:59)
--- NOTE | 2025-04-04 12:24 | P.PN_ITS ---
Progress Note: Subjective Subjective Interval history: Patient was seen evaluated at bedside, he remained afebrile here, WBC has normalized, kidney function stable, CRP improving and downtrending, hemodynamics more stable today, he denies any nausea or vomiting, tolerating oral intake, continues to feel better, left lower extremity gradually improving, remains on IV antibiotics. Exam Narrative Exam Narrative: Const General: cooperative HEENT Normal oropharyngeal mucosa without any ulcers or exudates Eyes: Conjunctiva normal Pulmonary Auscultation: Slightly diminished breath sounds, no crackles, no wheezes Cardiovascular Rate: normal rate Rhythm: regular rhythm Heart Sounds: S1 normal, S2 normal and no murmurs GI Inspection: mildly distended Palpation: soft, not firm and nontender. No rigidity or rebound. Deferred Neuro General: alert, awake and oriented x3. No obvious new focal deficit Musculoskeletal: normal range of motion Extrem LLE: redness, erythema, edema noted on Left foot extending to LLE above knee medially- improving gradually. L 2nd tip of toe dry small wound, no obvious discharge. Psych Appearance: appropriate affect. Grossly normal Constitutional Vital Signs, click to edit/add: Last Vital Signs Temp 98.5 F 04/04/25 07:41 Pulse 88 04/04/25 11:56 Resp 16 04/04/25 07:41 BP 104/69 04/04/25 07:41 Pulse Ox 93 L 04/04/25 07:41 O2 Del Method Room Air 04/04/25 07:41 Progress Note: Objective Labs Labs: Short CBC 04/04/25 Range/Units 06:15 WBC 10.2 (4.0-11.0) 10^3/uL Hgb 10.2 L (14.0-18.0) g/dL Hct 32.0 L (42.0-54.0) % Plt Count 231 (150-450) 10^3/uL BMP 04/04/25 06:15 Sodium 138 Potassium 3.5 Chloride 101 Carbon Dioxide 25.9 BUN 34.0 H Creatinine 1.50 H Glucose 115 H Calcium 8.7 Liver Function 04/04/25 Range/Units 06:15 Total Bilirubin 0.8 (0.2-1.0) mg/dL AST <5 L (15-37) U/L ALT 20 (16-63) U/L Alkaline Phosphatase 91 (46-116) U/L Albumin 2.7 L (3.4-5.0) g/dL Progress Note: A&P Assessment and Plan (1) Cellulitis of left leg: Plan Left Lower extremity cellulitis -Failed outpatient oral antibiotics with Keflex and Augmentin -Xray of foot showed soft tissue swelling, no OM or fractures. -Afebrile here, WBC has normalized. clinically improving -Follow-up blood culture - pending -CRP downtrending -Continue IV antibiotics with Unasyn and doxycycline -Pain control as needed -Will hold diuretics for now. Restart if needed. -Pt follows with podiatry as outpatient, has appt this coming Saturday Patient has chronic conditions of previous pleural effusion and did not of getting pleurodesis with no further recurrence and effusion, he does have ascites and been investigated for possibility of liver cirrhosis with [place] clinic team and he supposed to see a liver clinic before . He also has EGD scheduled on Saturday at [facility] for banding of esophageal varices. DVT ppx: Lovenox Diet: regular Discussed with patient and his at length at bedside, all question answered, they are in agreement and comfortable with the above plan Continue to maintain current management
[2025-04-04] MEDS: LACTULOSE 10 GM/15 ML UD CUP 20 GM PO (13:56)
[2025-04-04] MEDS: DOCUSATE SODIUM 100 MG CAPSULE PO ×2 (13:56→20:37)
[2025-04-04] MEDS: ACETAMINOPHEN 325 MG TABLET 650 MG PO (18:27)
[2025-04-04] MEDS: OXYBUTYNIN CHLORIDE 5 MG TAB XL 10 MG PO (20:37)
[2025-04-04] MEDS: ZOLPIDEM TARTRATE 10 MG TABLET PO (22:59)
[2025-04-05] VITALS (17 sets, daily range): BP systolic 96–115; BP diastolic 67–78; PULSE 74–97; TEMP 36.4–36.9; O2SAT 93–95
[2025-04-05] MEDS: AMPICILLIN SODIUM/SULBACTAM NA 3 GM in 0.9 % SODIUM CHLORIDE 100 ML IV ×4 (02:50→20:10)
[2025-04-05 05:41] LABS: Hematocrit 29.1 % (42.0-54.0); Hemoglobin 9.4 g/dL (14.0-18.0); Mean Corpuscular HGB Conc 32.3 g/dL (29.9-35.2); Mean Corpuscular Hemoglobin 31.1 pg (25.9-34.0); Mean Corpuscular Volume 96.4 fL (80.0-94.0); Platelet Count 225 10^3/uL (150-450); Red Blood Count 3.02 10^6/uL (4.70-6.10); White Blood Count 7.1 10^3/uL (4.0-11.0)
[2025-04-05 06:00] LABS: Anion Gap 13.3; Blood Urea Nitrogen 28.0 mg/dL (7.0-18.0); Calcium 8.4 mg/dL (8.5-10.1); Carbon Dioxide 25.9 mmol/L (21.0-32.0); Chloride 102 mmol/L (98-107); Estimated GFR (African America >60 (>=60 mL/min/1.73m^2); Estimated GFR (Non-African Ame 53 (>=60 mL/min/1.73m^2); Glucose 101 mg/dL (74-106); Potassium 3.2 mmol/L (3.5-5.1); Sodium 138 mmol/L (136-145)
[2025-04-05] MEDS: ENOXAPARIN SODIUM 40 MG/0.4 ML SYRINGE SUBQ (08:49)
--- NOTE | 2025-04-05 09:30 | CM.NOTE ---
Rounds made with Dr. Hoffman, no discharge today. Continue IV antibiotics as ordered. Pt is inpatient status. Discussed with pt and plan of care and possible need for continued IV antibiotics at discharge.
[2025-04-05] MEDS: DOCUSATE SODIUM 100 MG CAPSULE PO ×2 (09:37→21:33)
[2025-04-05] MEDS: FAMOTIDINE 20 MG TABLET PO (09:37)
[2025-04-05] MEDS: QUININE SULFATE 324 MG 324 EACH PO ×2 (09:37→21:33)
[2025-04-05] MEDS: PANTOPRAZOLE SODIUM 40 MG TABLET.DR PO ×2 (09:37→21:33)
[2025-04-05] MEDS: ALLOPURINOL 300 MG TABLET PO (09:37)
[2025-04-05] MEDS: POTASSIUM CHLORIDE 10 MEQ ER TABLET 20 MEQ PO (10:25)
--- NOTE | 2025-04-05 11:20 | PM.PN ---
Progress Note: Subjective Subjective Interval history: Patient seen and examined at bedside. No fever overnight. I met with him and his in the room. He states that his leg cellulitis feels better and still some tenderness however afebrile no nausea no vomiting no chills no fever. Labs showing improvement in his renal function as well as no leukocytosis. Exam Narrative Exam Narrative: HEENT Normal oropharyngeal mucosa without any ulcers or exudates Eyes: Conjunctiva normal Pulmonary Auscultation: Slightly diminished breath sounds, no crackles, no wheezes Cardiovascular Rate: normal rate Rhythm: regular rhythm Heart Sounds: S1 normal, S2 normal and no murmurs GI Inspection: mildly distended Palpation: soft, not firm and nontender. No rigidity or rebound. Deferred Neuro General: alert, awake and oriented x3. No obvious new focal deficit Musculoskeletal: normal range of motion Extrem LLE: redness, erythema, edema noted on Left foot extending to LLE above knee medially-clearly improved compared to when he first came in given the line marked by sharpie on his left thigh. L 2nd tip of toe dry small wound, no obvious discharge. Constitutional Vital Signs, click to edit/add: Last Vital Signs Temp 98.0 F 04/05/25 07:23 Pulse 84 04/05/25 08:00 Resp 16 04/05/25 07:23 BP 112/72 04/05/25 07:23 Pulse Ox 95 04/05/25 07:23 O2 Del Method Room Air 04/05/25 07:23 Progress Note: Objective Labs Labs: Short CBC 04/05/25 Range/Units 05:25 WBC 7.1 (4.0-11.0) 10^3/uL Hgb 9.4 L (14.0-18.0) g/dL Hct 29.1 L (42.0-54.0) % Plt Count 225 (150-450) 10^3/uL BMP 04/05/25 05:25 Sodium 138 Potassium 3.2 L Chloride 102 Carbon Dioxide 25.9 BUN 28.0 H Creatinine 1.32 H Glucose 101 Calcium 8.4 L Progress Note: A&P Assessment and Plan (1) Cellulitis of left leg: Assessment and Plan: Left Lower extremity cellulitis -Failed outpatient oral antibiotics with Keflex and Augmentin -Xray of foot showed soft tissue swelling, no OM or fractures. -Afebrile here, WBC has normalized. clinically improving -Follow-up blood culture - pending -CRP downtrending -Continue IV antibiotics with Unasyn and doxycycline -Pain control as needed -Will hold diuretics for now. Restart if needed. -Pt follows with podiatry as outpatient, has appt this coming Saturday Patient has chronic conditions of previous pleural effusion and did not of getting pleurodesis with no further recurrence and effusion, he does have ascites and been investigated for possibility of liver cirrhosis with [facility] team and he supposed to see a liver clinic before . He also has EGD scheduled on Saturday at [facility] for banding of esophageal varices. DVT ppx: Lovenox Diet: regular 04/05/2025 patient doing better from a cellulitis standpoint. We are continue with IV Unasyn and IV doxycycline for today and tomorrow at least. His is concerned that he always has recurrent cellulitis when he switched to oral antibiotics. I discussed with her the options including extended oral antibiotic therapy versus outpatient IV infusion. Otherwise I consulted podiatry for his toe wound. I will order arterial Doppler study to rule out PAD given his recurrent cellulitis and slowed/poor healing. Also patient and tell tell me that his spironolactone and torsemide has been on hold by his doctors at [place] so I would not resume that here.
[2025-04-05] MEDS: DOXYCYCLINE HYCLATE 100 MG in 0.9 % SODIUM CHLORIDE 100 ML IV (11:25)
[2025-04-05] MEDS: OXYBUTYNIN CHLORIDE 5 MG TAB XL 10 MG PO (20:10)
[2025-04-05] MEDS: ZOLPIDEM TARTRATE 10 MG TABLET PO (21:33)
[2025-04-05] MEDS: CALCIUM CARBONATE 500 MG (200MG ELEMENTAL) TAB CHEW PO (21:37)
[2025-04-06] VITALS (18 sets, daily range): BP systolic 104–118; BP diastolic 67–78; PULSE 80–88; TEMP 36.6–37.1; O2SAT 92–95
[2025-04-06] MEDS: DOXYCYCLINE HYCLATE 100 MG in 0.9 % SODIUM CHLORIDE 100 ML IV ×3 (00:26→23:52)
[2025-04-06] MEDS: AMPICILLIN SODIUM/SULBACTAM NA 3 GM in 0.9 % SODIUM CHLORIDE 100 ML IV ×4 (01:34→21:09)
[2025-04-06 06:02] LABS: Hematocrit 30.3 % (42.0-54.0); Hemoglobin 9.8 g/dL (14.0-18.0); Immature Granulocytes Abs Auto 0.08 10^3/uL (0.00-0.03); Immature Granulocytes Pct Auto 1.2 % (0.0-0.5); Lymphocytes Absolute Auto 0.9 10^3/uL (1.2-3.8); Mean Corpuscular HGB Conc 32.3 g/dL (29.9-35.2); Mean Corpuscular Hemoglobin 31.1 pg (25.9-34.0); Mean Corpuscular Volume 96.2 fL (80.0-94.0); Platelet Count 250 10^3/uL (150-450); Red Blood Count 3.15 10^6/uL (4.70-6.10); White Blood Count 6.5 10^3/uL (4.0-11.0)
[2025-04-06 06:08] LABS: Alanine Aminotransferase 25 U/L (16-63); Albumin Globulin Ratio 0.6; Albumin Level 2.4 g/dL (3.4-5.0); Alkaline Phosphatase 92 U/L (46-116); Anion Gap 14.1; Aspartate Amino Transferase 4 U/L (15-37); Blood Urea Nitrogen 25.0 mg/dL (7.0-18.0); Calcium 8.4 mg/dL (8.5-10.1); Carbon Dioxide 25.3 mmol/L (21.0-32.0); Chloride 104 mmol/L (98-107); Estimated GFR (African America >60 (>=60 mL/min/1.73m^2); Estimated GFR (Non-African Ame 55 (>=60 mL/min/1.73m^2); Globulin 3.9 g/dL; Glucose 98 mg/dL (74-106); Magnesium 2.2 mg/dL (1.8-2.4); Potassium 3.4 mmol/L (3.5-5.1); Sodium 140 mmol/L (136-145); Total Protein 6.3 g/dL (6.4-8.2)
[2025-04-06] MEDS: ENOXAPARIN SODIUM 40 MG/0.4 ML SYRINGE SUBQ (09:11)
[2025-04-06] MEDS: FAMOTIDINE 20 MG TABLET PO (09:11)
[2025-04-06] MEDS: PANTOPRAZOLE SODIUM 40 MG TABLET.DR PO ×2 (09:11→21:08)
[2025-04-06] MEDS: DOCUSATE SODIUM 100 MG CAPSULE PO ×2 (09:11→21:08)
[2025-04-06] MEDS: ALLOPURINOL 300 MG TABLET PO (09:11)
[2025-04-06] MEDS: QUININE SULFATE 324 MG 324 EACH PO ×2 (09:11→21:16)
--- NOTE | 2025-04-06 10:15 | CM.NOTE ---
Rounds made with Dr. Hoffman, discussed plan of care with pt and . One more day of IV antibiotics, possible discharge to home tomorrow on oral antibiotics.
[2025-04-06] MEDS: POTASSIUM CHLORIDE 10 MEQ ER TABLET 20 MEQ PO (10:16)
[2025-04-06] MEDS: ACETAMINOPHEN 325 MG TABLET 650 MG PO ×2 (11:30→17:48)
--- NOTE | 2025-04-06 11:54 | PM.PN ---
Progress Note: Subjective Subjective Interval history: Patient seen and examined at bedside. No fever overnight. No leukocytosis on his labs. Renal function continues to improve. His cellulitis on the left lower extremity is also improving. He is accompanied by his at bedside. Exam Narrative Exam Narrative: HEENT Normal oropharyngeal mucosa without any ulcers or exudates Eyes: Conjunctiva normal Pulmonary Auscultation: Slightly diminished breath sounds, no crackles, no wheezes Cardiovascular Rate: normal rate Rhythm: regular rhythm Heart Sounds: S1 normal, S2 normal and no murmurs GI Inspection: mildly distended Palpation: soft, not firm and nontender. No rigidity or rebound. Deferred Neuro General: alert, awake and oriented x3. No obvious new focal deficit Musculoskeletal: normal range of motion Extrem LLE: redness, erythema, edema noted on Left foot extending to LLE above knee medially-continues to improve compared to when he first came in given the line marked by sharpie on his left thigh. L 2nd tip of toe dry small wound, no obvious discharge. Constitutional Vital Signs, click to edit/add: Last Vital Signs Temp 98.3 F 04/06/25 11:32 Pulse 83 04/06/25 11:41 Resp 16 04/06/25 11:32 BP 112/76 04/06/25 11:32 Pulse Ox 93 L 04/06/25 11:32 O2 Del Method Room Air 04/06/25 11:32 Progress Note: Objective Labs Labs: Short CBC 04/06/25 Range/Units 05:06 WBC 6.5 (4.0-11.0) 10^3/uL Hgb 9.8 L (14.0-18.0) g/dL Hct 30.3 L (42.0-54.0) % Plt Count 250 (150-450) 10^3/uL BMP 04/06/25 05:06 Sodium 140 Potassium 3.4 L Chloride 104 Carbon Dioxide 25.3 BUN 25.0 H Creatinine 1.27 Glucose 98 Calcium 8.4 L Liver Function 04/06/25 Range/Units 05:06 Total Bilirubin 0.7 (0.2-1.0) mg/dL AST 4 L (15-37) U/L ALT 25 (16-63) U/L Alkaline Phosphatase 92 (46-116) U/L Albumin 2.4 L (3.4-5.0) g/dL Progress Note: A&P Assessment and Plan (1) Cellulitis of left leg: Plan Left Lower extremity cellulitis -Failed outpatient oral antibiotics with Keflex and Augmentin -Xray of foot showed soft tissue swelling, no OM or fractures. -Afebrile here, WBC has normalized. clinically improving -Follow-up blood culture - pending -CRP downtrending -Continue IV antibiotics with Unasyn and doxycycline -Pain control as needed -Will hold diuretics for now. Restart if needed. -Pt follows with podiatry as outpatient, has appt this coming Saturday Patient has chronic conditions of previous pleural effusion and did not of getting pleurodesis with no further recurrence and effusion, he does have ascites and been investigated for possibility of liver cirrhosis with [facility] team and he supposed to see a liver clinic before . He also has EGD scheduled on Saturday at [facility] for banding of esophageal varices. DVT ppx: Lovenox Diet: regular 04/05/2025 patient doing better from a cellulitis standpoint. We are continue with IV Unasyn and IV doxycycline for today and tomorrow at least. His is concerned that he always has recurrent cellulitis when he switched to oral antibiotics. I discussed with her the options including extended oral antibiotic therapy versus outpatient IV infusion. Otherwise I consulted podiatry for his toe wound. I will order arterial Doppler study to rule out PAD given his recurrent cellulitis and slowed/poor healing. Also patient and tell tell me that his spironolactone and torsemide has been on hold by his doctors at [place] so I would not resume that here. 04/06/2025 his cellulitis continues to improve with the CRP improving to 6.4 today. Explained to his that we will give another day and tomorrow with IV antibiotic and then he can be discharged on oral antibiotic for another 10 days after discharge. They are in agreement with the plan. She had concerns about his potassium p.o. that he is on at home explained to her that he was on torsemide when he was on this high potassium dose however we will see how the numbers are tomorrow and if anything we can always send him on a standing 40 mg p.o. potassium daily on discharge. The patient and were in agreement with the plan. Will continue the same management now he is on IV Unasyn as well as an and p.o. doxycycline
--- OUTSIDE RECORDS SUMMARY | 2025-04-06 14:19 | XMS_ITS | CCD ---
Author Organization [facility] Inform ion Partnership [facility] Care Team Providers Care Land Development Project Manager Name Role Phone Loida, Yuli E Unavailable Ball, Yuli E Unavailable Karthik Calloway Unavailable Unavailable Primary Care Provider Unavailabl e Loida, Yuli E Primary Care Provider Loida, Yuli E Unavailable Karthik Calloway Unavailable Ball, Yuli E Primary Care Provider [phone] Ball, Yuli E Unavailable Karthik Calloway Unavailable [...] YULI E Primary Care Unavailable Samsa, DO Sintia P Attending Provider Samsa, Sintia P Admitting Unavailable Samsa, Sintia P Attending Unavailable Samsa, Sintia P Admitting Unavailable Samsa, Sintia P Attending Unavailable Samsa, Sintia P Admitting Unavailable Samsa, Sintia P Attending Unavailable Jere Sales Unavailable Loida DO Yuli E Primary Care Provider Sam DO, Sintia P Unavailable ARIADNA OSHEALIE Referring Unavailable BALL, [...] Care Unavailable REMIGIO, SUDISH Referring Unavailable ARSENIOPIETER IgnacioK Attending Unavailable ARSENIOSTEPHANEDALAK Referring Unavailable BALL, YULI [...] Primary Care Unavailable Jere Sales MD Unavailable [phone] Unavailable Primary Care Provider UnavailJose Antonio [...] Care Unavailable ZAC MENDIOLA Attending Unavailable ISAKOV, OJSE ANTONIO Primary Care Unavailable RIGGS, TRISTON Admitting [...] BALL, YULI E Primary Care Unavailable TITA LANRDY Referring Unavailable BALL, YULI E Primary Care [...] Unavailable BALL, YULI E Primary Care Unavailable TIRSTON RIGGS Referring Unavailable ISAKOV, JOSE ANTONIO Primary [...] Unavailable LOIDA, YULI E Primary Care Unavailable LOIDA YULI E Primary Care Unavailable ZABRINA SUAREZ Referring Unavailable LOIDA YULI E Primary Care Unavailable XIOMARA LY Referring Unavailable LOIDA YULI E Primary Care Unavailable MALACHIXIOMARA VELASQUEZ Referring Unavailable ISAKOV, JOSE ANTONIO Primary Care Unavailable ISAKOV, JOSE ANTONIO Referring Unavailable LOIDA, YULI E Primary Care Unavailable XIOMARA LY Referring Unavailable Allergies Allergy ClassificationReported Allergen(s)Allergy TypeDate of OnsetReaction(s) FacilityOpioid Agonists (1 source)traMADolDrug Gibtnxa10-76-3999Oaqzsn Status ChangeAdena [facility] (20 sources)acetaminophen / oxyCODONE; Translations: [OXYCODONE-ACETAMINOPHEN] Propensity to adverse reactions to okyc27-01-6441Syova (See Comments), Unknown [facility] Work Phone: (20 sources)traMADol; Translations: [TRAMADOL]Propensity to adverse reactions to qmfu19-77-6609Vxyonmjer Of Breath, Mental Status Change, Unknown[facility] Work Phone: (1 source)traMADolDrug Huxbfkh82-88-7182Hnv [facility] Repository (1 source)traMADolDrug Hsrsksf47-45-1338OpuolereqBerger Hospital Rep[facility] (7 sources)Adhesive Tape-Silicones; Translations: [ADHESIVE TAPE-SILICONES]Drug Hliwbpaugre36-30-7491PalpbzrmvtqFsexnyyga Clinic Medications Current Medications MedicationDrug Class(es)DatesSig (Normalized)Sig (Original)AeroChamber Mini Chamber - (1 source)Start: 30-89-4755KtttOkbsrei Mini Chamber - Use w/ MDI inhaled every 6 hours as needed for 30 days Jul, [id number] 60 actuat albuterol 0.09 mg/actuat metered dose inhaler (1 source)beta2-Adrenergic AgonistStart: 31-33-7774Upncptpow Sulfate HFA 108 (90 Base) MCG/ACT 2 puffs Inhalation every 6 hours as needed for cough. Minimum bid for 30 days Jul, Activeamoxicillin 875 mg / clavulanate 125 mg oral tablet (12 sources)Penicillin-class AntibacterialStart: 11-19-2024 End: 73-14-4124kuzm 1 tablet by mouth every twelve hours in the evening amoxicillin-clavulanate potassium (AUGMENTIN) 875-125 mg per tablet Take 1 tablet by mouth every 12hours for 6 days. 12 tablet 11/19/2024 5:59 PM EDT 11/19/2024 11/25/2024 ActiveStart: 51-43-4775oymh 1 tablet by mouth every twelve hoursAmoxicillin-Pot Clavulanate 875-125 mg tablet Active 1 TAB PO Every 12 hours 14 August 19, 2023 1:00amASCORBATE CALCIUM (VITAMIN C ORAL) (17 sources)take 1 tablet by mouth once daily in the morningASCORBATE CALCIUM (VITAMIN C ORAL) Take 1 tablet by mouth every morning . 0 Activetake 1 tablet by mouth once daily in the morningASCORBATE CALCIUM (VITAMIN C ORAL) Take 1 tablet by mouth every morning . Activeascorbic acid 500 mg chewable tablet (20 sources)Vitamin Ctake 1 tablet by mouth once dailyAscorbic Acid (vitamin C) 500 MG tablet Take 500 mg by mouth Daily Activetake 2 tablets by mouth once dailyascorbic acid, vitamin C, (VITAMIN C) 500 mg tablet Take 1,000 mg by mouth once daily. Activeaspirin 81 mg delayed release oral tablet (20 sources)Platelet Aggregation Inhibitor, Nonsteroidal Anti-inflammatory Drug End: 20-98-8478agsx 1 tablet by mouth at bedtimeaspirin 81 MG EC tablet Take 81 mg by mouth at bedtime. 03/12/2025 Discontinued (Discontinued by another clinician)atorvastatin 10 mg oral tablet (20 sources)HMG-CoA Reductase InhibitorStart: 08-05-2023 End: 69-66-0683Klpimbtckfbx 10 mg tablet Active 0 .ROUTE .COMPLEX August 02, 2024 4:42pm TAKE 1 TABLET DAILY IN THE EVENINGStart: 10-21-2020 End: 04-38-2058qhgv 1 tablet by mouth once dailyatorvastatin (LIPITOR) 10 mg tablet Take 1 tablet by mouth once daily. 10/31/2020 01/26/2025 Discontinued azithromycin 250 mg oral tablet (20 sources)Macrolide AntimicrobialStart: 03-11-2024 End: 60-69-4194Czmnyogrwmva 250 mg tablet Active 250 MG PO As Directed 6 5 August 16, 2024 2:30pmStart: 25-44-7173Mjtaxbooqdsl 250 MG as directed Orally daily for 5 days May, Not-Taking/PRNbenzonatate 100 mg oral capsule (9 sources)Non-narcotic AntitussiveStart: 85-39-9160uuee 1 capsule by mouth three times dailyBenzonatate 100 mg capsule Active 100 MG PO Three times daily August 13, 2023 1:00amStart: 88-16-3936pdfp 1 capsule by mouth every eight hoursBenzonatate 100 MG 1 capsule as needed Orally Three times a day for 15 days Jun, ActiveBiotin (18 sources)take 1 tablet by mouth once daily in the morningBIOTIN ORAL Take 1 tablet by mouth every morning . 0 Activetake 1 tablet by mouth once daily in the morningBIOTIN ORAL Take 1 tablet by mouth every morning . Activetake 1 tablet by mouth once daily in the morningBIOTIN ORAL Take 1 tablet by mouth every morning . ActiveCalcium (20 sources)Phosphate Binder, Calciumcalcium bip-bjm-P0-Zn-microscopist-kian 250 mg-40 mg- 125 unit-3.75mg tab Take by mouth. ActiveCALCIUM MAGNESIUM ZINC PO (8 sources)CALCIUM MAGNESIUM ZINC PO Take by mouth Activecalcium polycarbophil 625 mg oral tablet (18 sources)take 1 tablet by mouth once daily in the morningpolycarbophil (FIBERCON) 625 mg tablet Take 1 (one) tablet (625 mg total) by mouth every morning . Activeciprofloxacin 3 mg/ml ophthalmic solution (9 sources)Quinolone AntimicrobialStart: 06-26-9400geca 1 drop(s) into the eye(s) four times dailyciprofloxacin HCl (CILOXAN) 0.3 % ophthalmic solution INSTILL 1 DROP INTO AFFECTED EYE 4 TIMES DAILY 10/04/2022 Activecodeine phosphate 2 mg/ml / guaiFENesin 20 mg/ml oral solution (7 sources)Opioid AgonistStart: 59-44-2072uhsv 1 mL by mouth every six hours as needed for coughCodeine-Guaifenesin 10-100 mg/5 mL liquid Active 10 ML PO Every 6 hours as needed for cough August 13, 2023 1:00amStart: 70-94-2277ypou 10 mL by mouth every six hours as needed for coughguaiFENesin-Codeine 100-10 MG/5ML 10 mL as needed Orally every 6 hours as needed for cough for 7 days Jun, Activedexamethasone 1 mg/ml / tobramycin 3 mg/ml ophthalmic suspension (1 source)Aminoglycoside Antibacterial, CorticosteroidStart: 08-12-2024 End: 37-36-6196ixgsaulmtv-dexAMETHasone (Tobradex) ophthalmic suspension Indications: Chalazion of left upper eyelid Administer 1 drop into the left eye in the morning and 1 drop at noon and 1 drop in the evening and 1 drop before bedtime. Do all this for 14 days. 5 mL 1 08/12/2024 08/26/2024 Active Dextromethorphan / guaiFENesin (8 sources)Uncompetitive T-pbledb-F-aspartate Receptor Antagonist, Sigma-1 AgonistDextromethorphan-guaiFENesin (MUCINEX DM PO) Take by mouth Active diclofenac sodium 0.01 mg/mg topical gel (20 sources)Nonsteroidal Anti-inflammatory DrugStart: 53-12-9303ceeoufofxd sodium 1% (Voltaren Arthritis Pain) 1 % Gel Apply 2 (two) g topically 4 (four) times a day as needed for pain Apply 2 grams to affected area up to 4 times a day as needed for pain. . 300 g2 07/13/2024 ActiveStart: 07-09-2024 End: 90-41-0399dxvvjunsrc sodium 1% (Voltaren) 1 % Gel Apply 2 (two) g topically 4 (four) times a day Apply 2 grams to affected area up to 4 times a day as needed PRN pain. . 900 g 2 07/09/2024 07/10/2024 Discontinued (Error)Start: 01-22-2024 End: 39-58-1166duiuashyjs (VOLTAREN) 1 % topical gel 01/22/2024 02/26/2025 DiscontinuedStart: 05-13-2023 End: 56-32-6435iviwkyygdo sodium (Voltaren) 1 % Gel Apply 2 (two) g topically 4 (four) times a day Apply 2 grams to affected area up to 4 times a day as needed PRN pain. . 900 g 2 05/13/2023 07/08/2024 Discontinued(Reorder (Suppress CancelRx Message to Pharmacy))Start: 08-30-2022 End: 85-79-6383igryppdqle sodium (Voltaren) 1 % Gel Apply 2 (two) g topically 4 (four) times a day Apply 2 grams to affected area up to 4 times a day as needed PRN pain. . 300 g 2 08/31/2022 Activeenteric contrast (will be provided with radiology test) (3 sources)Start: 10-21-2024 End: 81-00-7454hkrgqhq contrast (will be provided with radiology test) Indications: Other ascites , Generalized abdominal pain For CT ENTEROGRAPHY W IVCON order Administer, As Directed One Time Only, via Oral, Rectal, both Oral and Rectal, Enteric Tube, Stoma or Indwelling Catheter, Enteric Contrast as designatedper enteric contrast guidelines. 1 each 10/21/2024 10/22/2024 Active Start: 04-20-2024 End: 12-37-2327eueoscy contrast (will be provided with radiology test) Indications: Diarrhea, unspecified type ForCT ENTEROGRAPHY W IVCON order Administer, As Directed One Time Only, via Oral, Rectal, both Oral and Rectal, Enteric Tube, Stoma or Indwelling Catheter, Enteric Contrast as designated per enteric contrast guidelines. 1 Each 04/20/2024 04/21/2024 Expirederythromycin 0.005 mg/mg ophthalmic ointment (4 sources)Macrolide, Macrolide AntimicrobialStart: 07-21-2024 End: 56-01-6505knxbrslpmale (ROMYCIN) 5 mg/gram (0.5 %) ophthalmic ointment Use 1 application in both eyes two times a day for 10 days. into affected eye(s). 3.5 g 07/21/2024 07/31/2024 Activefamotidine 20 mg oral tablet (20 sources)Histamine-2 Receptor AntagonistStart: 62-17-7232ujzr 1 tablet by mouth once daily at bedtimefamotidine (PEPCID) 20 mg tablet Take 20 mg by mouth daily at bedtime. 02/22/2025 ActiveStart: 11-13-2024 End: 08-31-0680drap 1 tablet by mouth twice dailyfamotidine (PEPCID) 20 mg tablet Indications: Hiatal hernia , Chronic gastritis without bleeding, un specified gastritis type Take 1 tablet by mouth two times a day. 180 tablet 11/13/2024 02/11/2025 Activefluorouracil 50 mg/ml topical cream (15 sources)Nucleoside Metabolic InhibitorStart: 12-40-7115tnocqmhwmqsN (EFUDEX) 5 % cream 07/12/2020 ActiveGUAIFENESIN/DEXTROMETHORPHAN (MUCINEX DM ORAL) (17 sources)GUAIFENESIN/DEXTROMETHORPHAN (MUCINEX DM ORAL) Take by mouth. 0 ActiveGUAIFENESIN/DEXTROMETHORPHAN (MUCINEX DM ORAL) Take by mouth. Active guaifenesin/dextromethorphan (MUCINEX DM ORAL) (20 sources)guaifenesin/dextromethorphan (MUCINEX DM ORAL) Take by mouth two times a day. Activeiv contrast (will be provided with radiology test) (20 sources)Start: 10-21-2024 End: 04-28-7995pi contrast (will be provided with radiology test) [...] administration guidelines link. 1 each 10/21/2024 10/22/2024 ActiveStart: 04-20-2024 End: 18-33-3089zp contrast (will be provided with radiology test) Indications: Diarrhea, unspecified type CT Enterography W Inject, intravenously, once for 1 dose.No IV access, insert saline lock prior to the beginning of sedation, infusion, injection of imaging exam. Discontinue saline lock post exam. If Pt. hasa central line or IVAD, may access for administration according to line specific nursing protocol. Once exam is complete flush line and de-access according to line specific nursing protocol in the CTcontrast administration guidelines link. 1 Each 04/20/2024 04/21/2024 ExpiredStart: 03-17-2024 End: 35-61-0814gz contrast (will be provided with radiology test) CT Chest W - Inject, intravenously, once for 1 dose.No IV access, insert saline lock prior to the beginning of sedation, infusion, injection of imaging exam. Discontinue saline lock post exam. If Pt. has a central line or IVAD, may access for adminis tration according to line specific nursing protocol. Once exam is complete flush line and de-accessaccording to line specific nursing protocol in the CT contrast administration guidelines link. 1 Each 03/17/2024 05/18/2024 DiscontinuedStart: 95-49-3366cp contrast (will be provided with radiology test) [...] contrast administration guidelines link. 1 Each 03/17/2024 Activeketorolac tromethamine 5 mg/ml ophthalmic solution (9 sources)Nonsteroidal Anti-inflammatory Drug, Cyclooxygenase InhibitorStart: 98-17-1613kqbk 2 drop(s) into the eye(s) twice dailyketorolac (ACULAR) 0.5 % ophthalmic solution INSTILL 2 DROPS INTO AFFECTED EYE TWICE DAILY 10/01/2022 Activeloratadine 10 mg oral tablet (20 sources)Loratadine (CLARITIN PO) Take 10 mg by mouth Activemeloxicam 15 mg oral tablet (20 sources)Nonsteroidal Anti-inflammatory DrugStart: 07-20-2020 End: 05-29-9266pydy 1 tablet by mouth once dailyMeloxicam 15 mg tablet Active 15 MG PO Daily August 13, 2023 1:00amStart: 02-25-2017 End: 68-78-2271tslh 1 tablet by mouth twice daily as needed for painmeloxicam (MOBIC) 7.5 MG tablet Take 1 (one) tablet (7.5 mg total) by mouth 2 (two) times a day as needed for pain. 180 tablet 3 02/25/2017 02/25/2018 ActiveStart: 01-29-2017 End: 04-02-7334ozxw 0.5 tablet by mouth twice dailymeloxicam (MOBIC) 15 MG tablet Indications: Status post total right knee replacement Take 0.5 (one-half) tablet (7.5 mg total) by mouth 2 (two) times a day. 180 tablet 3 01/29/2017 01/29/2018 Active End: 73-11-9742tlfj 1-2 tablets by mouth once daily as neededmeloxicam (MOBIC) 7.5 MG tablet Take 7.5 mg by mouth daily 1-2 tabs prn . 0 07/20/2020 DiscontinuedmetOLazone 5 mg oral tablet (20 sources)Thiazide-like DiureticStart: 11-13-2024 End: 54-71-6000ctyc 1 tablet by mouth once dailymetOLazone (ZAROXOLYN) 5 mg tablet Indications: Anasarca Take 1 tablet by mouth once daily. 90 tablet 11/13/2024 ActiveStart: 08-21-2024 End: 55-31-1637onhx 1 tablet by mouth once dailymetOLazone (ZAROXOLYN) 5 mg tablet Take 1 tablet by mouth once daily. 30 tablet 08/21/2024 09/04/2024 Tsdtmmuhufiu26 hr mirabegron 50 mg extended release oral tablet (18 sources)beta3-Adrenergic AgonistStart: 01-26-2025 End: 21-24-6079wrfz 1 tablet by mouth once daily in the eveningmirabegron (MYRBETRIQ) 50 mg Tb24 Indications: Urge incontinence Take 1 tablet by mouth every evening. 90 tablet 1 01/26/2025 04/26/2025 ActiveStart: 12-15-2024 End: 14-06-1739lvyz 1 tablet by mouth once daily in the eveningmirabegron (MYRBETRIQ) 50 mg Tb24 Indications: Urge incontinence Take 1 tablet by mouth every evening. 30 tablet 2 12/15/2024 01/14/2025 Expiredtake 1 tablet by mouth at bedtime, then take 1 tablet by mouth every twenty-four hoursmirabegron ER (Myrbetriq) 50 MG 24 hr tablet Take 50 mg by mouth at bedtime Do not crush, chew, or split. ActiveMultiple Vitamins-Minerals (MULTIVITAMIN ADULTS 50+ PO) (8 sources)Multiple Vitamins-Minerals (MULTIVITAMIN ADULTS 50+ PO) Take by mouth Activemultivit-min/ferrous fumarate (MULTI VITAMIN ORAL) (20 sources)take 1 tablet by mouth once dailymultivit-min/ferrous fumarate (MULTI VITAMIN ORAL) Take 1 tablet by mouth once daily. Activemultivit- min/ferrous fumarate (MULTI VITAMIN ORAL) Take by mouth. Activemultivitamin (multivitamin) per tablet (5 sources)take 1 tablet by mouth once daily in the morningmultivitamin (multivitamin) per tablet Take 1 tablet by mouth every morning . 0 Activetake 1 tablet by mouth once daily in the morningmultivitamin (multivitamin) per tablet Take 1 tablet by mouth every morning . Activemultivitamin (THERAGRAN) per tablet (12 sources)take 1 tablet by mouth once daily in the morningmultivitamin (THERAGRAN) per tablet Take 1 (one) tablet by mouth every morning . Activetake 1 tablet by mouth once daily in the morningmultivitamin (THERAGRAN) per tablet Take 1 (one) tablet by mouth every morning . 0 ActiveMultivitamin Tablet (1 source)take 1 tablet by mouth once daily in the morningmultivitamin (multivitamin) per tablet Take 1 tablet by mouth every morning . Activemupirocin 0.02 mg/mg topical ointment (12 sources)RNA Synthetase Inhibitor AntibacterialStart: 18-98-8174omxnlydli (BACTROBAN) 2 % ointment Apply a small amount in each nostril using a cotton swab twice the day before surgery and once the morning of surgery. 22 g 0 11/12/2023 ActiveStart: 33-43-3104Sborazboy 2 % 1 application Externally Twice a day for 7 days Jun, Not-Taking/PRNOmega 3 (11 sources)[place] 3 ActiveOmega-3 Fatty Acids (4 sources)Start: 46-10-2140dkrw 500 mg by mouth once dailyOmega-3 Fatty Acids Active 500 MG PO Daily August 13, 2023 1:00amOmega-3 Fatty Acids 500 mg capsule (1 source)Start: 80-35-5850cgqo 1 capsule by mouth once dailyOmega-3 Fatty Acids 500 mg capsule Active 500 MG PO Daily August 13, 2023 1:00amondansetron 4 mg disintegrating oral tablet (1 source)Serotonin-3 Receptor AntagonistStart: 88-98-3320qzvm 1 tablet by mouth every eight hours as needed for nausea and vomitingOndansetron 4 mg tablet,disintegrating Active 4 MG PO Every 8 hours as needed for nausea and vomiting 04 15July 14, 2024 1:00ampantoprazole 40 mg delayed release oral tablet (20 sources)Proton Pump InhibitorStart: 17-79-1588hiez 1 tablet by mouth once dailypantoprazole DR (PROTONIX) 40 mg tablet Take 1 tablet by mouth once daily. 02/22/2025 ActiveStart: 07-23-2024 End: 46-23-6238dywl 1 tablet by mouth once dailyPantoprazole 40 mg tablet,delayed release (DR/EC) Active 40 MG PO Daily 90 90 July 23, 2024 1:00amStart: 04-28-2024 End: 90-69-7625ajla 1 tablet by mouth twice dailypantoprazole DR (PROTONIX) 40 mg tablet Take 1 tablet by mouth two times a day. 180 tablet 04/28/2024 10/14/2024 Discontinued (Duplicate Entry)microencapsulated potassium chloride 20 meq extended release oral tablet (20 sources)Start: 12-15-2024 End: 97-71-6545wetj 2 tablets by mouth three times dailypotassium chloride ER (KLOR-CON M20) 20 mEq tablet Indications: Hypokalemia Take 2 tablets by mouth three times a day. 540 tablet 12/15/2024 03/15/2025 ActiveStart: 09-04-2024 End: 66-88-6595aqsp 2 tablets by mouth three times dailypotassium chloride (K- TAB) 20 mEq TbER Indications: Recurrent 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 , Hypokalemia 2 tablets by ORAL/FEEDING TUBE route three times a day. 540 tablet 09/04/2024 12/03/2024 ExpiredStart: 05-20-2024 End: 04-35-5291ixlw 2 tablets by mouth twice dailypotassium chloride ER (KLOR- CON M20) 20 mEq tablet Indications: Hypokalemia Take 2 tablets by mouthtwo times a day. 360 tablet 06/12/2024 09/04/2024 DiscontinuedStart: 01-15-2024 End: 56-45-0783vmly 1 tablet by mouth three times dailypotassium chloride ER (KLOR-CON) 20 mEq tablet Indications: Recurrent 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 Take 1 tablet by mouth three times a day. 270 tablet 01/15/2024 04/14/2024 ActiveStart: 12-26-2023 End: 74-92-4286qcln 1 tablet by mouth twice dailypotassium chloride ER (KLOR- CON) 20 mEq tablet Take 1 tablet by mouth two times a day. 60 tablet 1 0 12/26/2023 01/15/2024 DiscontinuedStart: 11-29-2023 End: 61-35-7087zhvj 1 tablet by mouth once dailypotassium chloride ER (KLOR-CON) 20 mEq tablet Take 1 tablet by mouth once daily for 5 days. 5 tablet 0 11/29/2023 12/04/2023 Expiredtake 2 capsules by mouth in the morningpotassium chloride ER (Micro-K) 10 MEQ ER capsule Take 20 mEq by mouth in the morning and 20 mEq before bedtime. Do not crush or chew. ActiveprednisoLONE acetate 10 mg/ml ophthalmic suspension (9 sources)CorticosteroidStart: 86-70-2042dbgdwmuoAWFZ acetate (PRED FORTE) 1 % ophthalmic suspension INSTILL 1 DROP INTO AFFECTED EYE INTO AFFECTED EYE 4 TIMES DAILY DIRECTED 10/01/2022 ActivequiNINE sulfate 324 mg oral capsule (20 sources)AntimalarialStart: 10-19-2024 End: 51-36-0458hwks 1 capsule by mouth twice dailyquiNINE 324 mg capsule Indications: Cramp and spasm Take 1 capsule by mouth two times a day. 180 cap roma 01/26/2025 ActiveStart: 09-24-2024 End: 99-81-1431vqvz 1 capsule by mouth every twelve hoursquiNINE 324 mg capsule Take 1 capsule by mouth every 12 hours. 09/24/2024 10/19/2024 DiscontinuedStart: 07-21-2024 End: 12-97-1083qnpr 1 capsule by mouth twice dailyquiNINE 324 mg capsule Indications: Muscle cramps Take 1 capsule by mouth two times a day. 60 capsule 2 07/21/2024 08/20/2024 Activetake 1 capsule by mouth every eight hoursquiNINE (Qualaquin) 324 MG capsule Take 324 mg by mouth every 8 (eight) hours Active spironolactone 25 mg oral tablet (15 sources)Aldosterone Antagonist End: 29-40-1889nyhhtntpivszel (Aldactone) 25 MG tablet Take by mouth Daily Activetamsulosin hydrochloride 0.4 mg oral capsule (20 sources)alpha-Adrenergic BlockerStart: 11-74-4373xggt 1 capsule by mouth once dailyTamsulosin 0.4 mg Capsule Active 0.4 MG PO Daily October 21, 2020 12:00am torsemide 100 mg oral tablet (20 sources)Loop DiureticStart: 05-13-2024 End: 78-33-7197oblv 1 tablet by mouth once dailytorsemide (DEMADEX) 100 mg tablet Indications: Recurrent 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 , Anasarca Take 1 tablet by mouth once daily. 90 tablet 1 11/13/2024 ActivetraZODone hydrochloride 100 mg oral tablet (15 sources)Serotonin Reuptake InhibitorStart: 09-04-2024 End: 09-11-7315wxkr 1 tablet by mouth once daily at bedtimetraZODone (DESYREL) 100 mg tablet Indications: Chronic insomnia Take 1 tablet by mouth daily at bedt christine. 30 tablet 2 09/04/2024 10/04/2024 Activevit A-vit C-vit G-euii-tkurps (EYE VITAMIN AND MINERALS) 7,160-113-100 acsn-qn-bxzo Tab (4 sources)take 1 tablet by mouth once daily in the morningvit A-vit C-vit I-onrw-btvjbv (EYE VITAMIN AND MINERALS) 7,160-113-100 wqvi-ga-ldra Tab Take 1 tablet by mouth every morning . 0 Activevit A-vit C-vit S-ibeb-xerixm 7,160-113-100 aysc-ko-qviq Tab (12 sources)take 1 tablet by mouth once daily in the morningvit A-vit C-vit J-eave-lgmzib 7,160-113-100 fwxj-ja-ywng Tab Take 1 tablet by mouth every morning .Activetake 1 tablet by mouth once daily in the morningvit A-vit C-vit L-udvb-bspaup 7,160-113-100 bevc-rz-nxni Tab Take 1 tablet by mouth every morning .0 ActiveVitamin C Oral (1 source)take 1 tablet by mouth once daily in the morningASCORBATE CALCIUM (VITAMIN C ORAL) Take 1 tablet by mouth every morning . ActiveVit A 7,160 Unit- Vit C 113 Mg-Vit E 100 Nkmr-Dehu-Ftahrz Tablet (2 sources)take 1 tablet by mouth once daily in the morningvit A-vit C-vit N-fkyz-blgfax (EYE VITAMIN AND MINERALS) 7,160-113-100 scif-jx-jwel Tab Take 1 tablet by mouth every morning . Activezolpidem tartrate 5 mg oral tablet (2 sources)gamma-Aminobutyric Acid-ergic AgonistStart: 12-02-2023 End: 78-30-0106Gczzwajt 5 mg tablet Active 0 PO Daily at bedtime as needed for insomnia 14 December 02, 2023 5:32pm 1-2 orally daily at bedtime PRN; Completed/Discontinued Medications MedicationDrug Class(es)DatesSig (Normalized)Sig (Original)acetaminophen 500 mg oral tablet (20 sources)Start: 11-23-2023 End: 59-06-8832pkol 2 tablets by mouth every six hoursacetaminophen (TYLENOL) 500 mg tablet Take 2 tablets by mouth every 6 hours. 11/23/2023 05/18/2024 D iscontinuedalbuterol 0.833 mg/ml / ipratropium bromide 0.167 mg/ml inhalation solution (20 sources)Anticholinergic, beta2-Adrenergic AgonistStart: 11-23-2023 End: 62-04-8696mpqm 3 mL by inhalation every six hours as neededipratropium- albuterol (DUONEB) 0.5 mg-3 mg(2.5 mg base)/3 mL nebu Inhale 3 mL as instructed every 6hours as needed for wheezing/shortness of breath. 360 mL 11/23/2023 05/13/2024 DiscontinuedAllopurinol (20 sources)Xanthine Oxidase InhibitorStart: 12-30-2023 End: 27-95-9309Wclfictazvt 300 mg tablet Discontinued 0 .ROUTE .COMPLEX 90 December 30, 2023 12:30pm January 24, 2024 1:49pm TAKE 1 TABLET DAILYStart: 10-21-2020 End: 92-74-4119xumb 1 tablet by mouth once dailyallopurinol (ZYLOPRIM) 300 mg tablet Take 300 mg by mouth once daily. 10/21/2020 Activeamoxicillin 500 mg oral capsule (20 sources)Penicillin-class AntibacterialStart: 01-28-2024 End: 07-65-8502srmotnvpoik (AMOXIL) 500 mg capsule 01/28/2024 11/19/2024 DiscontinuedStart: 27-69-3332njtelicotcl (AMOXIL) 500 MG capsule Take 4 capsules one hour prior to dental procedure/cleaning . 4capsule 1 01/28/2024 Active amylase 738120 unt / lipase 30211 unt / protease 152600 unt delayed release oral capsule (9 sources)Start: 06-12-2024 End: 12-64-3551ymkh 2 capsules by mouth three times daily at mealtime pkkerg-uqsiuwjc-bmnnmjp (CREON) 36,000-114,000- 180,000 unit delayed release capsule Indications: Exocrine pancreatic insufficiency Take 2 capsules by mouth three times a day with meals. 200 capsule 1 06/12/2024 07/21/2024 Discontinued budesonide 3 mg delayed release oral capsule (20 sources)CorticosteroidStart: 04-30-2024 End: 69-36-4134yinr 3 capsules by mouth once daily, then take 2 capsules by mouth once daily, then take 1 capsule by mouth once dailybudesonide, enteric coated (ENTOCORT EC) 3 mg 24 hr capsule Take 3 capsules by mouth once daily for 60 days, THEN 2 capsules once daily for 15 days, THEN 1 capsule once daily for 7 days. 217 capsule 04/30/2024 07/20/2024 Expiredcalcium carbonate 1250 mg oral tablet (20 sources)Start: 12-26-2023 End: 22-07-5307uhob 1 tablet by mouth twice dailycalcium carbonate (OS-ELIZABETH 500) 500 mg calcium (1,250 mg) tablet Take 1 tablet by mouth two times a day. 180 tablet 12/26/2023 05/13/2024 LevysfxpgouvUNBTEUF-QGFCMOUOT-JWPA ORAL (18 sources) End: 52-14-0458HFCDAES-MAGNESIUM-ZINC ORAL Take by mouth. 05/18/2024 AyetzmrbytgzVSXDSZO-HZYEECGVD-TYPM ORAL Take by mouth. Activecephalexin 500 mg oral capsule (20 sources)Cephalosporin AntibacterialStart: 41-55-3218ikae 1 capsule by mouth every eight hoursCephalexin 500 MG 1 capsule Orally tid for 5 days Dec, Not-Taking/PRNStart: 86-07-7779jism 1 capsule by mouth twice daily as needed Cephalexin 500 MG 1 capsule Orally twice daily for 7 days Jun, Not-Taking/PRNdoxycycline hyclate 100 mg oral capsule (11 sources)Tetracycline-class DrugStart: 31-94-6223vxez 1 capsule by mouth every twelve hoursDoxycycline Hyclate 100 MG 1 capsule Orally Twice a day for 7 days Jun, Not-Taking/PRNfluticasone propionate 0.05 mg/actuat metered dose nasal spray (5 sources)CorticosteroidStart: 12-26-2023 End: 04-85-0589anan 2 spray(s) nasal route once daily at bedtimefluticasone (FLONASE) 50 mcg/actuation nasal spray Use 2 Sprays in each nostril daily at bedtime. 16 g 1 12/26/2023 01/15/2024 DiscontinuedFluticasone Propion-Salmeterol (15 sources)Corticosteroid, beta2-Adrenergic AgonistStart: 08-08-2023 End: 75-59-6195ezro 1 dose by mouth every twelve hoursFluticasone Propion- Salmeterol 100-50 mcg/dose blister with device Discontinued 0 .ROUTE .COMPLEX 60 August 08, 2023 10:43am August 13, 2023 12:21pm INHALE 1 DOSE BY MOUTH EVERY 12 HOURSStart: 08-08-2023 End: 90-79-4665cjvb 1 dose by mouth every twelve hoursFluticasone Propion- Salmeterol Discontinued 0 .ROUTE .COMPLEX 60 August 08, 2023 10:43am Februar y 2023 12:21pm INHALE 1 DOSE BY MOUTH EVERY 12 HOURSStart: 08-07-2023 End: 84-24-2610achs 1 puff(s) by inhalation every twelve hoursFluticasone Propion-Salmeterol 115-21 mcg/actuation HFA aerosol inhaler Discontinued 2 PUFF INHALATION Every 12 hours 12 August 07, 2023 10:58am August 08, 2023 10:43amStart: 08-07-2023 End: 17-45-2604zyjm 1 puff(s) by inhalation every twelve hoursFluticasone Propion-Salmeterol Discontinued 2 PUFF INHALATION Every 12 hours 06 15August 07, 2023 10:58am August 08, 2023 10:43amStart: 08-06-2023 End: 12-66-5535eqsw 1 puff(s) by inhalation every twelve hoursFluticasone Propion-Salmeterol 115-21 mcg/actuation HFA aerosol inhaler Discontinued 2 PUFF INHALATION Every 12 hours 06 15August 06, 2023 1:00am August 07, 2023 10:58amStart: 08-06-2023 End: 68-27-0067ybyh 1 puff(s) by inhalation every twelve hoursFluticasone Propion-Salmeterol Discontinued 2 PUFF INHALATION Every 12 hours 06 15August 06, 2023 1:00am August 07, 2023 10:58amfurosemide 40 mg oral tablet (20 sources)Loop DiureticStart: 12-27-2023 End: 07-67-3048dzgp 1 tablet by mouth once dailyfurosemide (LASIX) 80 mg tablet Indications: Recurrent 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 Take 1 tablet by mouth once daily. 90 tablet 02/12/2024 05/13/2024 DiscontinuedStart: 12-26-2023 End: 92-61-6850jnvv 1 tablet by mouth once daily in the eveningfurosemide (LASIX) 40 mg tablet Indications: Recurrent 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 Take 1 tablet by mouth once daily. At 2 pm 90 tablet 02/12/2024 05/13/2024 Discontinued Start: 11-29-2023 End: 72-19-3285gnwf 1 tablet by mouth once dailyfurosemide (LASIX) 20 mg tablet Take 1 tablet by mouth once daily for 5 days. 5 tablet 0 407/04/2024 Discontinuedhydroxychloroquine sulfate 200 mg oral tablet (20 sources)Antimalarial, Antirheumatic AgentStart: 02-12-2024 End: 29-48-8711uwab 1 tablet by mouth twice dailyhydrOXYchloroQUINE (PLAQUENIL) 200 mg tablet Indications: Recurrent 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 Take 1 tablet by mouth two times a day. 180 tablet 02/12/2024 05/13/2024 DiscontinuedStart: 12-27-2023 End: 31-83-1289ynez 1 tablet by mouth oncehydrOXYchloroQUINE (PLAQUENIL) 200 mg tablet Indications: Recurrent 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 , Pleural effusion Take 1 tablet by mouth every afternoon. 90 tablet 02/12/2024 02/12/2024 Discontinued lidocaine 0.04 mg/mg medicated patch (11 sources)Antiarrhythmic, Amide Local AnestheticStart: 11-24-2023 End: 13-31-3415tarpu 1 dose transdermal route once dailylidocaine (SALONPAS) 4 % patch Apply 1 Patch as directed once daily. 0 11/24/2023 12/20/2023 Discontinued losartan potassium 25 mg oral tablet (20 sources)Angiotensin 2 Receptor BlockerStart: 12-23-2023 End: 02-98-9683onkkhotv (COZAAR) 25 mg tablet Take 1 tablet by mouth once daily. Patient should start on December 23, 2023. 0 12/23/2023 12/26/2023 DiscontinuedStart: 96-55-7455gmlrxqru (COZAAR) 25 mg tablet Take 1 tablet by mouth once daily. Patient should start on December 23, 2023. 0 12/23/2023 SuspendedStart: 12-23-2023 losartan (COZAAR) 25 mg tablet Take 1 tablet by mouth once daily. Patient should start on December 23, 2023. 0 12/23/2023 ActiveStart: 72-74-6302ikhfcssj (COZAAR) 25 mg tablet Take 1 tablet by mouth once daily. Patient should start on December 22. 0 12/23/2023 ActiveStart: 96-75-3029klufcnlk (COZAAR) 25 mg tablet Take 1 tablet by mouth once daily. Patient should start on December 23, 2023. 0 12/23/2023 ActiveStart: 88-50-2536upqhemsa (COZAAR) 25 mg tablet Take 1 tablet by mouth once daily. Patient should start on December 23, 2023. 0 12/23/2023 ActiveStart: 82-33-1452pwcomhlq (COZAAR) 25 mg tablet Take 1 tablet by mouth once daily. Patient should start on December 23, 2023. 0 12/23/2023 ActiveStart: 12-23-2023 losartan (COZAAR) 25 mg tablet Take 1 tablet by mouth once daily. Patient should start on December 23, 2023. 0 12/23/2023 ActiveStart: 00-16-8847xdcblbuu (COZAAR) 25 mg tablet Take 1 tablet by mouth once daily. Patient should start on December 22. 0 12/23/2023 ActiveStart: 2023 End: 90-61-8364yenv 1 tablet by mouth once dailyLosartan 25 mg tablet Active 25 MG PO Daily August 13, 2023 1:00ammagnesium oxide 400 mg oral tablet (20 sources)Start: 12-26-2023 End: 19-17-5694kaco 1 tablet by mouth twice dailymagnesium oxide (MAG-OX) 400 mg (241.3 mg magnesium) tablet Take 1 tablet by mouth two times a day.60 tablet 01/27/2024 05/13/2024 Discontinuedmetoprolol tartrate 25 mg oral tablet (12 sources)beta-Adrenergic BlockerStart: 11-23-2023 End: 45-09-0678zqui 1 tablet by mouth every twelve hoursmetoprolol tartrate, short acting, (LOPRESSOR) 25 mg tablet Take 1 tablet by mouth every 12 hours. M etoprolol was prescribed to prevent atrial fibrillation after thoracic surgery. Stop this medication after 30 days. 60 tablet 0 11/23/2023 12/26/2023 Discontinuedmontelukast 10 mg oral tablet (5 sources)Leukotriene Receptor AntagonistStart: 12-27-2023 End: 91-56-1724kgvf 1 tablet by mouth once dailymontelukast (SINGULAIR) 10 mg tablet Take 1 tablet by mouth once daily. 30 tablet 1 12/27/2023 01/15/2024 DiscontinuedNebulizer and Compressor For Neb (INNOSPIRE ESSENCE) (12 sources)Start: 11-23-2023 End: 45-44-8625Djhnxwbyi and Compressor For Neb (INNOSPIRE ESSENCE) 1 Each four times daily. 1 Each 0 11/23/2023 12/26/2023 DiscontinuedStart: 11-23-2023 End: 27-21-0905Rhiihbrez and Compressor For Neb (INNOSPIRE ESSENCE) 1 Each four times daily. 1 Each 0 11/23/2023 02/21/2024 SuspendedStart: 11-23-2023 End: 56-08-5783Cvjvlljfd and Compressor For Neb (INNOSPIRE ESSENCE) 1 Each four times daily. 1 Each 0 11/23/2023 02/21/2024 Activeomeprazole 40 mg delayed release oral capsule (20 sources)Proton Pump InhibitorStart: 07-20-2024 End: 24-00-2942dfoj 1 capsule by mouth once dailyOmeprazole 40 mg capsule,delayed release(DR/EC) Discontinued 40 MG PO Daily July 20, 2024 10:20pm July 23, 2024 10:20pmStart: 55-66-9003zojx 1 capsule by mouth once daily as neededOmeprazole 20MG Omeprazole 20MG, 1 (one) Capsule Capsule daily on empty stomach followed in 30 minutes by bkfst # 0, 12/22/2021, No Refill. Active Oral daily on empty stomach followed in 30 minutes by bkfst for 0 *Pick strength-form from [employer] for eRX* 08 Dec, 2021 Not-Taking/PRNStart: 09-28-2020 End: 42-97-7833aliu 1 capsule by mouth once dailyOmeprazole 20 mg capsule,delayed release(DR/EC) Discontinued 20 MG PO Daily October 21, 2020 12:00am December 12, 2023 9:40amStart: 00-14-3879qerm 2 capsules by mouth twice daily omeprazole (PRILOSEC) 20 mg capsule Take 40 mg by mouth two times a day. 0 09/28/2020 ActiveOmeprazole 20 mg capsule,delayed release(DR/EC) (1 source)Start: 12-12-2023 End: 38-29-5661Wklbxiozlu 20 mg capsule,delayed release(DR/EC) Discontinued 0 .ROUTE .COMPLEX December 12, 2023 5:53pm July 20, 2024 10:21pm TAKE 1 CAPSULE DAILY ON AN EMPTY STOMACH, FOLLOWED IN 30 MINUTES BYBREAKFASToxyCODONE hydrochloride 5 mg oral tablet (4 sources)Opioid AgonistStart: 11-23-2023 End: 37-44-6228jmlq 1 tablet by mouth every six hours as neededoxyCODONE IR (ROXICODONE) 5 mg immediate release tablet Indications: Pleural effusion , Postoperative pain Take 1 tablet by mouth every 6 hours as needed for up to 7 days. 28 tablet 0 11/23/2023 11/30/2023 Expiredpolyethylene glycol 3350 46430 mg powder for oral solution (4 sources)Osmotic LaxativeStart: 11-24-2023 End: 28-17-9448lezqobhhurjx glycol 3350 17 gram packet Take 1 Packet by mouth once daily for 7 days. Dissolve dosein 4 - 8 ounces of liquid and take as directed. 7 Packet 0 11/24/2023 12/01/2023 ExpiredpredniSONE 10 mg oral tablet (20 sources)Start: 27-59-2607pmcn 1 tablet by mouth once dailyPrednisone 50 mg tablet Active 50 MG PO Daily 3 November 07, 2023 12:00amStart: 08-13-2023 End: 03-69-0306cshwxbOGKM (DELTASONE) 10 mg tablet Indications: Chronic cough , Elevated C-reactive protein (CRP) , Elevated sedimentation rate Take 1 tablet by mouth as directed. Prednisone 10 mg 2 tabs tid x 5 days,2 tabs bid x 5 days,3 tabs daily x 5 days,2 tabs daily x 5 days,1 tab daily x 5 days,1/2 daily x 4 days and stip 82 tablet 01/15/2024 07/21/2024 DiscontinuedStart: 07-23-2023 predniSONE 20 MG 1 tablet Orally bid w/ food x 4 days then qd w/ food x 4 days for 8 days Jul, ActiveraNITIdine 300 mg oral tablet (16 sources)Histamine-2 Receptor AntagonistStart: 10-21-2020 End: 41-78-0732hviq 1 tablet by mouth once dailyRanitidine Hcl 300 mg Tablet Discontinued 300 MG PO Daily October 21, 2020 12:00am August 132:21pm Ranitidine HCl Activesildenafil 100 mg oral tablet (11 sources)Phosphodiesterase 5 InhibitorStart: 16-47-7817Ghvmmlhhzm Citrate 100MG Sildenafil Citrate 100MG, 1 (one) Tablet 1 PO PRN ED # 6, 01/03/2022, Ref. x5. Active Oral 1 PO PRN ED for 30 *Pick strength-form from [employer] for eRX* 20 Dec, 2021 Not-Taking/PRNsucralfate 1000 mg oral tablet (16 sources)Aluminum ComplexStart: 12-15-2024 End: 58-29-1768vufp 1 tablet by mouth four times dailysucralfate (CARAFATE) 1 gram tablet Indications: Hiatal hernia Take 1 tablet by mouth four times daily. 120 tablet 2 12/15/2024 01/14/2025 ExpiredStart: 04-28-2024 End: 17-15-4607baqe 1 tablet by mouth twice dailysucralfate (CARAFATE) 1 gram tablet Take 1 tablet by mouth two times a day. 60 tablet 04/28/2024 05/28/2024 Problems Active Problems Problem ClassificationProblemDateDocumented DateEpisodic/ChronicAbdominal hernia (2 sources)Hiatal hernia; Translations: [Diaphragmatic hernia without obstruction or gangrene]82-50-8040VqjdjwsyLdvatgzp foot deformities (6 sources)Toe joint rigid; Translations: [Hallux rigidus, left foot]Onset: 30-47-4087BirzzdeNoufc bronchitis (1 source)Acute bronchitis due to other specified organismsEpisodicCataract (14 sources)After-cataract of bilateral eyes; Translations: [Other secondary cataract, bilateral]Onset: 776950-95-8542IhniobdBrnrenv kidney disease (7 sources)Chronic kidney disease stage 3A ; Translations: [Stage 3a chronic kidney disease (HCC)]Onset: 961398-76-5057EswbngtItcjdsb kidney disease (2 sources)Chronic kidney disease; Translations: [Stage 3a chronic kidney disease (HCC)]Onset: 88-01-6612Zmiycgh obstructive pulmonary disease and bronchiectasis (2 sources)Unspecified chronic bronchitis; Translations: [Chronic bronchitis] Onset: 713452-81-7684KajmxbbLikjygz ulcer of skin (6 sources)Pressure ulcer of other site, stage 2; Translations: [Pressure ulcer, other site]53-27-7957KcnqdjaCtoeoxvekv and other anemia (3 sources)Anemia; Translations: [Anemia, unspecified]85-29-3852Djwuoxwo Deficiency and other anemia (1 source)Anemia, unspecified; Translations: [Anemia, unspecified type]Onset: 87-73-8226AqhpqqmgDvyhgqkl of white blood cells (18 sources)Leukocytosis; Translations: [Elevated white blood cell count, unspecified]Onset: 820461-32-6866RaekgqgFybzzlzbw of lipid metabolism (20 sources)Hyperlipidemia; Translations: [Hyperlipidemia, unspecified]Onset: 712755-38-0491IkwabpeRxfctwubxgtdkl and diverticulitis (11 sources)Diverticulosis of sigmoid colon; Translations: [Diverticulosis of large intestine without perforation or abscess without bleeding]Chronic Esophageal disorders (20 sources)Gastroesophageal reflux disease; Translations: [Gastro-esophageal reflux disease without esophagitis]Onset: 23-28-0118YtvqlruClodmhaht hypertension (20 sources)Essential hypertension; Translations: [Essential (primary) hypertension]Onset: 85-13-0475ErjbcmqRsmzexscm and duodenitis (1 source)Chronic gastritis; Translations: [Unspecified chronic gastritis without bleeding]33-40-2207DdzollzIeukhxsqgbxnzzwv hemorrhage (20 sources)Blood-tinged feces; Translations: [Melena]30-95-5043TsjywmphAkfxhzc on above:Problem List clean-up per request of Phys. EHR CmteGenitourinary symptoms and ill-defined conditions (2 sources)Urge incontinence of urine; Translations: [Urge incontinence] 05-44-0435EpghvylGadbw valve disorders (4 sources)Cardiac murmur, unspecified; Translations: [Undiagnosed cardiac murmurs]36-57-5058VxduamjmDlvwgcmwdex (11 sources)Hemorrhoids; Translations: [Unspecified hemorrhoids]Episodic Hyperplasia of prostate (11 sources)Lower urinary tract symptoms due to benign prostatic hypertrophy; Translations: [Benign prostatic hyperplasia with lower urinary tract symptoms] ChronicMalaise and fatigue (2 sources)Other fatigue; Translations: [Fatigue]EpisodicMiscellaneous mental health disorders (2 sources)Chronic insomnia; Translations: [Psychophysiologic insomnia] 32-06-8212UhbaqldRmcjfm and vomiting (13 sources)Nausea and vomiting; Translations: [Nausea with vomiting, unspecified]Onset: 591581-82-8620VgbuyaleHpmlbtxiwacol gastroenteritis (20 sources)Lymphocytic colitis; Translations: [Other and unspecified noninfectious gastroenteritis and colitis]Onset: 836455-70-2384GjamjeaNenw wounds of head; neck; and trunk (1 source)Laceration without foreign body of scalp, initial encounterEpisodic Osteoarthritis (20 sources)Unilateral primary osteoarthritis, left knee; Translations: [Osteoarthritis of knee]Onset: 524920-73-6333CiujdcwVotijgvbbgdsar (6 sources)Osteoarthritis of left knee joint; Translations: [Osteoarthritis of left knee]Onset: Other aftercare (1 source)Other mcfp (current) drug therapyEpisodicOther aftercare (5 sources)Surgical follow-up; Translations: [Encounter for follow-up examination after completed treatment for conditions other than malignant neoplasm]73-38-6883TtdkrpznKaaov aftercare (2 sources)Follow-up status; Translations: [Encounter for follow-up examination after completed treatment for conditions other than malignant neoplasm] 72-68-5793KqtevnerXzmls circulatory disease (1 source)Elevated blood-pressure reading, without diagnosis of hypertension EpisodicOther circulatory disease (1 source)Orthostatic hypotension; Translations: [Orthostatic hypotension] 17-95-7794RgejmcexMivli connective tissue disease (20 sources)History of total knee arthroplasty; Translations: [Presence of artificial knee joint, bilateral]Onset: 611163-84-8031UykehxpHtyar connective tissue disease (1 source)Metatarsalgia of left foot; Translations: [Metatarsalgia, left foot] 50-73-9726XthmfkjhPssit connective tissue disease (2 sources)Cramp; Translations: [Cramp and spasm]76-12-8123LhxorjheAwnou connective tissue disease (4 sources)Spasm; Translations: [Cramp and spasm]41-87-0299PkapohtzHvaon connective tissue disease (6 sources)Pain of toe of left foot; Translations: [Pain in left toe(s)] 52-30-3880LcvwysiaKotmr diseases of veins and lymphatics (2 sources)Disorder of vein of lower extremity; Translations: [Venous insufficiency (chronic) (peripheral)]85-23-8327NclycgmfAcsrz ear and sense organ disorders (1 source)Impacted cerumen; Translations: [Impacted cerumen, unspecified ear] 11-69-0877QbixtilcAywoq gastrointestinal disorders (15 sources)Dysphagia; Translations: [Dysphagia, unspecified]90-23-6017Pkhdmdza Comment on above:Problem List clean-up per request of Phys. EHR CmteOther gastrointestinal disorders (1 source)Dysphagia, unspecified; Translations: [Dysphagia]EpisodicOther gastrointestinal disorders (4 sources)Diarrhea; Translations: [Diarrhea, unspecified]07-40-5795Xkclydpv Other gastrointestinal disorders (9 sources)Ascites; Translations: [Other ascites]30-54-9511JginuhtdVkelh hematologic conditions (1 source)Elevated erythrocyte sedimentation rate; Translations: [Elevated sed rate]Onset: 30-43-2246WawoyevpHbjne injuries and conditions due to external causes (1 source)Other injury of unspecified body region, initial encounter; Translations: [Bruising]Onset: 58-61-4991ZqydqzetIgbvb liver diseases (1 source)Unspecified cirrhosis of liver; Translations: [Cirrhosis of liver without ascites, unspecified hepatic cirrhosis type (HCC)]Onset: 11-12-2024 ChronicOther liver diseases (8 sources)Alkaline phosphatase raised; Translations: [Abnormal levels of other serum enzymes]22-31-2444RsfuhcuvQonjo liver diseases (4 sources)Large liver; Translations: [Hepatomegaly, not elsewhere classified] 37-22-3867OhcvhhpkDexuw lower respiratory disease (5 sources)Interstitial lung disease; Translations: [Interstitial pulmonary disease, unspecified]18-64-8962TxewwnjZuqvz lower respiratory disease (3 sources)Interstitial pulmonary disease, unspecified; Translations: [Interstitial pulmonary disease (HCC)]Onset: 21-89-4884KsjxmxkIiczu lower respiratory disease (19 sources)Cough; Translations: [Cough, unspecified]Onset: EpisodicOther lower respiratory disease (4 sources)Other forms of dyspnea; Translations: [Other respiratory abnormalities]09-80-6827WgqjhrhwRwuuh lower respiratory disease (1 source)Viral respiratory infection; Translations: [Other specified respiratory disorders]96-67-2714LjbnzxztBjlcv lower respiratory disease (1 source)Cough; Translations: [Subacute cough]24-72-8317PplfgbmnJeeju lower respiratory disease (1 source)Other specified respiratory disorders; Translations: [Unspecified viral infection]58-69-0239RmmxzpqtNkxfj lower respiratory disease (5 sources)Peripheral cyanosis; Translations: [Cyanosis]59-11-5127RjbhqmzoOuigg male genital disorders (10 sources)Impotence of organic origin; Translations: [Erectile dysfunction due to arterial insufficiency]ChronicOther male genital disorders (1 source)Erectile dysfunction due to arterial insufficiency; Translations: [Erectile dysfunction due to arterial insufficiency]ChronicOther nervous system disorders (1 source)Mortons neuroma of left foot; Translations: [Lesion of plantar nerve, left lower limb]ChronicOther nervous system disorders (2 sources)Lesion of plantar nerve, left lower limb; Translations: [Lesion of plantar nerve, left lower limb]Onset: 99-61-0374HjgzfffIshyt nervous system disorders (1 source)Metabolic encephalopathy; Translations: [Metabolic encephalopathy] 38-62-9364BlfooxbMapgc nervous system disorders (6 sources)Difficulty walking; Translations: [Difficulty in walking, not elsewhere classified]37-66-4454QuiiqheLqoou non-traumatic joint disorders (2 sources)Pain in left knee; Translations: [Pain in left knee]Onset: 01-16-2023 EpisodicOther nutritional; endocrine; and metabolic disorders (18 sources)Obesity; Translations: [Obesity, unspecified]Onset: 08-23-2014 39-99-7740IljrnkcAqgfv nutritional; endocrine; and metabolic disorders (8 sources)Body mass index 30+ - obesity; Translations: [Body mass index (BMI) 30.0-30.9, adult]ChronicOther nutritional; endocrine; and metabolic disorders (8 sources)Obesity caused by energy imbalance; Translations: [Other obesity due to excess calories]ChronicOther nutritional; endocrine; and metabolic disorders (1 source)Other obesity due to excess caloriesChronicOther nutritional; endocrine; and metabolic disorders (1 source)Body mass index (BMI) 30.0-30.9, adultChronicOther nutritional; endocrine; and metabolic disorders (20 sources)Obese class I; Translations: [Obesity, unspecified]Onset: 10-25-2023 91-00-4170CbacosnAxfgr nutritional; endocrine; and metabolic disorders (4 sources)Hypomagnesemia; Translations: [Hypomagnesemia]76-26-0740QsxclmhNxhmz nutritional; endocrine; and metabolic disorders (1 source)Obesity, unspecified; Translations: [Obesity, Class I, BMI 30-34.9] Onset: 02-42-3125DjvimbwNgirz nutritional; endocrine; and metabolic disorders (1 source)Hypomagnesemia; Translations: [Hypomagnesemia]Onset: 75-43-7290Yqhmtsk Other screening for suspected conditions (not mental disorders or infectious disease) (20 sources)Encounter for screening for malignant neoplasm of prostate; Translations: [Elevated C-reactive protein]Onset: 51-93-5668ZyuqxrqfLjrkp skin disorders (2 sources)Actinic keratosis; Translations: [Actinic keratosis]08-27-2024 EpisodicOther skin disorders (2 sources)Seborrheic keratosis; Translations: [Other seborrheic keratosis] 27-77-0388WatoztauPsgwx skin disorders (2 sources)Lentiginosis; Translations: [Other melanin hyperpigmentation] 87-98-2942RntsvqycMzsdfitvbx disorders (not diabetes) (1 source)Exocrine pancreatic insufficiency; Translations: [Exocrine pancreatic insufficiency]89-94-8179NcqsfhrhZsij-; endo-; and myocarditis; cardiomyopathy (except that caused by tuberculosis or sexually transmitted disease) (17 sources)Pericardial effusion; Translations: [Pericardial effusion]Onset: 043913-72-0970SyajedhcEmsgillw codes; unclassified (1 source)Bilateral lower limb edema; Translations: [Localized edema]01-19-2024 EpisodicRetinal detachments; defects; vascular occlusion; and retinopathy (14 sources)Nonexudative age-related macular degeneration; Translations: [Nonexudative age-related macular degeneration, bilateral, early dry stage] Onset: 276891-65-7066WvdxcfmBeda and subcutaneous tissue infections (6 sources)Cellulitis of left foot; Translations: [Cellulitis of left lower limb]41-39-8759EcqvprazXcsaeuns lupus erythematosus and connective tissue disorders (1 source)Connective tissue disease overlap syndrome; Translations: [Other overlap syndromes]61-67-6634SemalxdUgbwgkvltfmc (1 source)Established Patient Follow-UpOnset: 55-24-6925Zyyelzlwgzvt (1 source)Cough, unspecified type; Translations: [Cough, unspecified type]Onset: 10-13-2024 Past or Other Problems Problem ClassificationProblemDateDocumented DateEpisodic/ChronicAbdominal pain (7 sources)Abdominal pain; Translations: [Unspecified abdominal pain]Onset: 332551-84-1584OubuplubPmtsy and unspecified renal failure (20 sources)Acute renal failure syndrome; Translations: [Acute kidney failure, unspecified]Onset: 673646-49-8533EivwbhriViqqp posthemorrhagic anemia (18 sources)Acute posthemorrhagic anemia; Translations: [Acute posthemorrhagic anemia]Onset: 597940-10-3767KntatmywDmnepcrnje disorders (4 sources)Esophageal disorders; Translations: [Gastro-esophageal reflux disease with esophagitis, without bleeding]Fluid and electrolyte disorders (4 sources)Hypokalemia; Translations: [Hypokalemia]Onset: EpisodicGenitourinary symptoms and ill-defined conditions (20 sources)Retention of urine; Translations: [Retention of urine, unspecified] Onset: 961717-94-0636JlldsezlMtdpmrwcpfpx; infection of eye (except that caused by tuberculosis or sexually transmitteddisease) (14 sources)Blepharitis of upper and lower eyelids of bilateral eyes; Translations: [Unspecified blepharitis right eye, upper and lower eyelids]Onset: 434909-84-1117AwfyrivhCzull aftercare (2 sources)Encounter for follow-up examination after completed treatment for conditions other than malignant neoplasm; Translations: [Follow-up exam]Onset: 87-93-2232FrfigsmnUnnuk circulatory disease (20 sources)Raynaud's phenomenon; Translations: [Raynaud's syndrome without gangrene]Onset: 12-25-2023 Resolved: 890412-02-2284UdxzedsHasjz circulatory disease (20 sources)History of pericarditis; Translations: [Personal history of other diseases of the circulatory system]Onset: 398319-54-2287UfkfaoivMigus circulatory disease (1 source)Personal history of other diseases of the circulatory system; Translations: [History of pericarditis]Onset: 56-61-6648RzconxavVeulg circulatory disease (1 source)Other specified symptoms and signs involving the circulatory and respiratory systems; Translations:[Poor perfusion of leg]Onset: 11-12-2024 EpisodicOther connective tissue disease (2 sources)Pain in right foot; Translations: [Pain in right foot]Onset: 98-43-2868XcrdwzugHtojd connective tissue disease (2 sources)Pain in left foot; Translations: [Pain in left foot]Onset: 08-28-2022 EpisodicOther connective tissue disease (1 source)Other specified soft tissue disorders; Translations: [Leg swelling] Onset: 78-53-2037FleonbfbSffon eye disorders (14 sources)Dry eyes; Translations: [Dry eye syndrome of bilateral lacrimal glands]Onset: 818719-43-7466DdbjeajfIfmqd eye disorders (14 sources)Chalazion of left upper eyelid; Translations: [Chalazion left upper eyelid]Onset: 229253-93-7685PvxlzanlUhzpp gastrointestinal disorders (20 sources)Esophageal dysphagia; Translations: [Other dysphagia]Onset: 771550-78-5579IgclafkmBkujg gastrointestinal disorders (2 sources)Other ascites; Translations: [Other ascites]Onset: 43-79-8556Lwwitycr Other gastrointestinal disorders (1 source)Other dysphagia; Translations: [Esophageal dysphagia]Onset: 09-24-2024 EpisodicOther gastrointestinal disorders (1 source)Diarrhea, unspecified; Translations: [Diarrhea, unspecified type] Onset: 91-20-7596CogstrhqAqlit hematologic conditions (20 sources)ESR raised; Translations: [Elevated erythrocyte sedimentation rate] Onset: 342780-86-8554LodrsnriLuyna liver diseases (2 sources)Hepatomegaly, not elsewhere classified; Translations: [Hepatomegaly] Onset: 85-34-8581VttjallyVffhw liver diseases (2 sources)Abnormal levels of other serum enzymes; Translations: [Elevated alkaline phosphatase level]Onset: 88-70-5060KlkzdmeqYlzer lower respiratory disease (20 sources)Chronic cough; Translations: [Chronic cough]Onset: 03-17-2024 42-73-0850GmdlfurlWwzfo lower respiratory disease (20 sources)Nodule of lung; Translations: [Solitary pulmonary nodule]Onset: 037633-72-3361AhksslqsLxhyi lower respiratory disease (1 source)Cyanosis; Translations: [Extremity cyanosis]Onset: 57-05-2157Jqacgrde Other nervous system disorders (20 sources)Postoperative pain ; Translations: [Other acute postprocedural pain] Onset: 311371-81-3085BlfszntcArldi upper respiratory disease (1 source)Other diseases of bronchus, not elsewhere classified; Translations: [Bronchiolar disease]Onset: 55-03-9165UojdoubvCbtdqtbpcds and intestinal abscess (2 sources)Serositis; Translations: [Other peritonitis]Onset: 10-23-2024 71-84-5997KzzwcpdwEgkblsbi; pneumothorax; pulmonary collapse (20 sources)Pleural effusion; Translations: [Pleural effusion, not elsewhere classified]Onset: 398402-87-9377NrxtyobqFsalzlbf codes; unclassified (20 sources)Edema, generalized; Translations: [Generalized edema]Onset: 12-20-2023 Resolved: 427728-95-2986UkgizbcwJbnxhhus codes; unclassified (2 sources)Generalized edema; Translations: [Anasarca]Onset: 59-70-0284Iuymwhhp Unclassified (3 sources)Subacute cough R05.2Unclassified (1 source)Cough, unspecified; Translations: [Cough, unspecified]Onset: 29-39-1382Bevrbvxfxshz (2 sources)Decreased UOQ58-04-5339 Results Test NameValueInterpretationReference RangeFacilityXR CHEST 2V FRONTAL/LATon 79-20-6771UR CHEST 2V FRONTAL/LATNormalCSelect [facility], [facility] metabolic 2000 panelon 02-43-3339Goaqv gap [Moles/Vol]13 mmol/LNormal8-15[facility] Comment on above:Order Comment: Specimen Type: BLOOD SPECIMEN Ordering Facility: [facility] Address: [address] [place], [place] [address]Performed By: #### 18563-7 #### [facility] [place] [id number] [address] [place] [address] [place] AMERICACalcium [Mass/Vol]8.7 mg/dLNormal8.5-10.2 [facility] HospitalComment on above:Order Comment: Specimen Type: BLOOD SPECIMEN Ordering Facility: [facility] Address: [address] [place], [place] [address]Performed By: #### 62038-5 #### [facility] [place] [id number] [address] [place] [address] [place] AMERICAChloride [Moles/Vol]96 mmol/GMqt17-913 [facility] HospitalComment on above:Order Comment: Specimen Type: BLOOD SPECIMEN Ordering Facility: [facility] Address: [address] [place], [place] [address]Performed By: #### 70554-1 #### [facility] IA [id number] [address] [place] [address] [place] AMERICACO2 [Moles/Vol]24 mmol/OWeaubu87-80Ijto HospitalComment on above:Order Comment: Specimen Type: BLOOD SPECIMEN Ordering Facility: [facility] Address: [address] [place], [place] [address]Performed By: #### 65420-0 #### [facility] IA [id number] [address] [place] [address] [place] AMERICACreatinine [Mass/Vol]1.59 mg/dLHigh 0.73-1.22[facility] HospitalComment on above:Order Comment: Specimen Type: BLOOD SPECIMEN Ordering Facility: [facility] Address: [address] [place], [place] [address]Performed By: #### 17952-0 #### [facility] [place] [id number] [address] [place] [address] [place] AMERICAeGFRcr SerPlBld CKD-EPI 130276 mL/min/1.73m???Low>=60[facility]on HospitalComment on above:Order Comment: Specimen Type: BLOOD SPECIMEN Ordering Facility: [facility] Address: [address] [place], [place] [address]Result Comment: Estimated Glomerular Filtration Rate (eGFR) is calculated using the 2020 CKD-EPI cre atinine equation. This equation utilizes serum creatinine, sex, and age as parameters. The creatinine assay has traceable calibration to isotope dilution- mass spectrometry. Refer to KDIGO guidelines for clinical interpretation. In patients with unstable renal function, e.g. those with acute kidney injury, the eGFR may not accurately reflect actual GFR.Performed By: #### 71791-7 #### [facility] CLIA [id number] [address] [place] [address] [place] AMERICAGlucose [Mass/Vol]110 mg/eUQwzz79-88Mpkz HospitalComment on above:Order Comment: Specimen Type: BLOOD SPECIMEN Ordering Facility: [facility] Address: [address] [place], [place] [address]Result Comment: The [place] [employer] (ADA) provides [...] 2016, [place] [employer]. Diabetes Care. 2016.39(Suppl 1).Performed By: #### 60245-0 #### [facility] CLIA [id number] [address] [place] [address] [place] AMERICAPotassium [Moles/Vol]3.8 mmol/LNormal 3.7-5.1Avon HospitalComment on above:Order Comment: Specimen Type: BLOOD SPECIMEN Ordering Facility: [facility] Address: [address] [place] [id number] By: #### 47372-3 #### [facility] CLIA [id number] [address] [place] [address] [place] AMERICASodium [Moles/Vol]133 mmol/GKmt436-811 [facility] HospitalComment on above:Order Comment: Specimen Type: BLOOD SPECIMEN Ordering Facility: [facility] Address: [address] [place], [place] [address]Performed By: #### 02710-9 #### [facility] CLIA [id number] [address] [place] [address] [place] AMERICAUrea nitrogen [Mass/Vol]34 mg/dLHigh9-24 [facility] HospitalComment on above:Order Comment: Specimen Type: BLOOD SPECIMEN Ordering Facility: [facility] Address: [address] [place], [place] [address]Performed By: #### 19254-1 #### [facility] [place] [id number] [address] [place] [address] [place] AMERICAPLATELET AGGREGATIONon 52-41-8919Reeyxxxb aggregation ADP induced 10 umol/L (PRP) [Rel units/Vol]64 % QonKmjuyo20-72Ggti HospitalComment on above:Order Comment: Specimen Type: BLOOD SPECIMEN Ordering Facility: [facility] Address: [address] [place], [place] [address]Performed By: #### [id number], [id number] #### [facility] CLIA [id number] [address] [place] [address] [place] AMERICAPlatelet aggregation ADP induced 20 umol/mL (PRP) [Rel units/Vol]73 % RedIhoowj64-68Lrtr HospitalComment on above:Order Comment: Specimen Type: BLOOD SPECIMEN Ordering Facility: [facility] Address: [address] [place], [place] [address]Performed By: #### [id number], [id number] #### [facility] CLIA [id number] [address] [place], [place] [address] [place] AMERICAPlatelet aggregation ADP induced ATP secretion 10 umol/L (Bld) [Rel units/Vol]0.8 nMNormal0.1-1.4Avon HospitalComment on above:Order Comment: Specimen Type: BLOOD SPECIMEN Ordering Facility: [facility] Address: [address] [place], [place] [address]Performed By: #### [id number], [id number] #### [facility] CLIA [id number] [address] [place] [address] [place] AMERICAPlatelet aggregation ADP induced ATP secretion 5 umol/L (Bld) [Rel units/Vol]0.4 nMNormal0.1-1.3Avon HospitalComment on above:Order Comment: Specimen Type: BLOOD SPECIMEN Ordering Facility: [facility] Address: [address] [place], [place] [address]Performed By: #### [id number], [id number] #### [facility] CLIA [id number] [address] [place] [address] [place] AMERICAPlatelet aggregation ADP induced High dose (PRP) [Rel units/Vol]57 % VjlRnb11-92Yisq HospitalComment on above:Order Comment: Specimen Type: BLOOD SPECIMEN Ordering Facility: [facility] Address: [address] [place], [place] [address]Performed By: #### [id number], [id number] #### [facility] CLIA [id number] [address] [place] [address] [place] AMERICAPlatelet aggregation arachidonate induced 500 ug/mL (PRP) [Rel units/Vol]80 % MsvOipehq36-737Zvwb HospitalComment on above:Order Comment: Specimen Type: BLOOD SPECIMEN Ordering Facility: [facility] Address: [address] [place], [place] [address]Performed By: #### [id number], [id number] #### [facility] CLIA [id number] [address] [place] [address] [place] AMERICAPlatelet aggregation arachidonate induced ATP secretion 500 umol/L (Bld) [Rel units/Vol]0.7 nMNormal 0.4-2.0Avon HospitalComment on above:Order Comment: Specimen Type: BLOOD SPECIMEN Ordering Facility: [facility] Address: [address] [place], [place] [address]Performed By: #### [id number], [id number] #### [facility] CLIA [id number] [address] [place] [address] [place] AMERICAPlatelet aggregation collagen induced ATP secretion 1 ug/mL (Bld) [Rel units/Vol]0.6 nMNormal0.4-1.7 [facility] HospitalComment on above:Order Comment: Specimen Type: BLOOD SPECIMEN Ordering Facility: [facility] Address: [address] [place], [place] [address]Performed By: #### [id number], [id number] #### [facility] CLIA [id number] [address] [place] [address] [place] AMERICAPlatelet aggregation collagen induced Qn (Bld)70 % LtsMjg37-52Ozpe HospitalComment on above:Order Comment: Specimen Type: BLOOD SPECIMEN Ordering Facility: [facility] Address: [address] [place], [place] [address]Performed By: #### [id number], [id number] #### [facility] CLIA [id number] [address] [place] [address] [place] AMERICAPlatelet aggregation EPINEPHrine induced (PRP) [Rel units/Vol]73 % FieAqdczh49-74Nlbx HospitalComment on above:Order Comment: Specimen Type: BLOOD SPECIMEN Ordering Facility: [facility] Address: [address] [place], [place] [address]Performed By: #### [id number], [id number] #### [facility] CLIA [id number] [address] [place] [address] [place] AMERICAPlatelet aggregation EPINEPHrine induced 100 umol/L (PRP) [Rel units/Vol]76 % RcsYmhphh21-63Inlv HospitalComment on above:Order Comment: Specimen Type: BLOOD SPECIMEN Ordering Facility: [facility] Address: [address] [place], [place] [address]Performed By: #### [id number], [id number] #### [facility] CLIA [id number] [address] [place] [address] [place] AMERICAPlatelet aggregation ristocetin induced 1200 ug/mL (PRP) [Rel units/Vol]82 % XbfVedpoh11-070Fkuw HospitalComment on above:Order Comment: Specimen Type: BLOOD SPECIMEN Ordering Facility: [facility] Address: [address] [place], [place] [address]Performed By: #### [id number], [id number] #### [facility] CLIA [id number] [address] [place] [address] [place]ICAPlatelet aggregation ristocetin induced 1500 ug/mL (PRP) [Rel units/Vol]85 % LolAlhpvp44-092Lpuc HospitalComment on above:Order Comment: Specimen Type: BLOOD SPECIMEN Ordering Facility: [facility] Address: [address] [place], [place] [address]Performed By: #### [id number], [id number] #### [facility] CLIA [id number] [address] [place] [address] [place]ICAPlatelet aggregation ristocetin induced 600 ug/mL (PRP) [Rel units/Vol]4 % MaxNormal0-9[facility] Comment on above:Order Comment: Specimen Type: BLOOD SPECIMEN Ordering Facility: [facility] Address: [address] [place], [place] [address]Performed By: #### [id number], [id number] #### [facility] CLIA [id number] [address] [place] [address] [place]APlatelet aggregation ristocetin induced 900 ug/mL (PRP) [Rel units/Vol]75 % VqwYyffbl81-780Obtm HospitalComment on above:Order Comment: Specimen Type: BLOOD SPECIMEN Ordering Facility: [facility] Address: [address] [place], [place] [address]Performed By: #### [id number], [id number] #### [facility] CLIA [id number] [address] [place] [address] [facility] AMERICAPlatelet aggregation thrombin induced ATP secretion 1 U/mL (Bld) [Rel units/Vol]1.0 nMNormal>0.5Avon HospitalComment on above:Order Comment: Specimen Type: BLOOD SPECIMEN Ordering Facility: [facility] Address: [address] [place], [place] [address]Performed By: #### [id number], [id number] #### [facility] CLIA [id number] [address] [place] [address] [place]APlatelet aggregation thrombin induced ATP secretion 5 U/mL (Bld) [Rel units/Vol]0.4 nMNormal0.2-1.4 [facility] HospitalComment on above:Order Comment: Specimen Type: BLOOD SPECIMEN Ordering Facility: [facility] Address: [address] [place], [place] [address]Performed By: #### [id number], [id number] #### [facility] CLIA [id number] [address] [place] [address] [place] AMERICAPLATELET AGGREGATION INTERP on 24-49-2468Fbfokpq Ab Platelet aggregation Ql (PPP)Reviewed by Harshad Mcraesandro HospitalComment on above:Order Comment: Specimen Type: BLOOD SPECIMEN Ordering Facility: [facility] Address: [address] [place], [place] [address]Performed By: #### [id number], [id number] #### [facility] CLIA [id number] [address] [place] [address] [place] AMERICAPlatelet aggregation (PPP) [Interp]NormalAv HospitalComment on above:Order Comment: Specimen Type: BLOOD SPECIMEN Ordering Facility: [facility] Address: [address] [place], [place] [address]Result Comment: Abnormal - see comment below. A laboratory [...] to the remaining tested agonists, including ADP (5???M), ADP (20 ???M), arachidonic acid (0.5 mg/ml), [...] laboratory results with clinical findings and medication history.Performed By: #### [id number], [id number] #### [facility] CLIA [id number] [address] [place] [address] [place] AMERICACNNURSEon 01-09-5269KKFTNTA NormalTrihealth Bethesda Butler HospitalHISTORY PHYSICALon 95-58-3858RKCMJIF PHYSICAL NormalTrihealth Bethesda Butler HospitalNKINDRED [facility] PROGon 72-96-8531IMMLHVC PROGNormal [facility] PROGNormalTrihealth Bethesda Butler HospitalUpper GI endoscopyon 67-76-2289Tposp GI endoscopyNormalCMercy Health [facility] PROGon 81-88-7482CRWYFGG PROGNormalTrihealth Bethesda Butler HospitalXR Foot - left 3 Viewson 73-02-8431Ayrmitp Result: 3 views left foot: Weight-bearing: DP, oblique, lateral: 03/12/2025: Unremarkable for acute osseous or joint pathology. Unremarkable for fracture or stress fracture changes. There are no distinct lytic or erosive changes of the distal phalanx 2nd digit. Extensive degenerative arthritic changes of the 1st MTP joint.[facility] HealthcareRadiology Study observation (narrative)[facility] Comprehensive metabolic 2000 panelon 83-52-9701Yavhnat [Mass/Vol]4.0 g/dLNormal 3.9-4.9CTriHealth Bethesda North Hospital on above:Order Comment: Specimen Type: BLOOD SPECIMENOrdering Facility: [facility] Address:[address] [place], [place] [address]Performed By: #### 03397-7 ####[facility] [id number] [place], [place] [address]MJI [Catalytic activity/Vol]117 U/QBaup31-705XqsgxylsjPremier Health Miami [facility] Hospital on above:Order Comment: Specimen Type: BLOOD SPECIMENOrdering Facility: [facility] Address:[address] [place], [place] [address]Performed By: #### 28335-0 ####[facility] [id number] [place], [place] [address]PXA [Catalytic activity/Vol]16 U/TGunskg04-30ZvukzzupzPremier Health Miami Valley Hospital on above:Order Comment: Specimen Type: BLOOD SPECIMENOrdering Facility: [facility] Address:[address] [place], [place] [address]Performed By: #### 91888-3 ####[facility] [id number] [place], [place] [address]Phmji gap [Moles/Vol]10 mmol/LNormal8-15[facility] on above:Order Comment: Specimen Type: BLOOD SPECIMENOrdering Facility: [facility] Address:[address] [place], [place] [address]Performed By: #### 85964- 8 ####[facility] LABCLIA [id number] [place], [place] [address]YLP [Catalytic activity/Vol]U/DMck85-79BmawrjanuPremier Health Miami Valley Hospital on above:Order Comment: Specimen Type: BLOOD SPECIMENOrdering Facility: [facility] Address:[address] [place], [place] [address]Performed By: #### 93166-2 ####[facility] LAB[facility] [id number] [place], [place] [address]Rbxxkpuyy [Mass/Vol]0.6 mg/dL Normal0.2-1.3CTriHealth Bethesda North Hospital on above:Order Comment: Specimen Type: BLOOD SPECIMENOrdering Facility: [facility] Address:[address] [place], [place] [address]Performed By: #### 23572-9 ####[facility] [id number] [place] [address] Calcium [Mass/Vol]8.7 mg/dLNormal8.5-10.2CTriHealth Bethesda North Hospital on above:Order Comment: Specimen Type: BLOOD SPECIMENOrdering Facility: [facility] Address:[address] [place], [place] [address]Performed By: #### 46979-6 ####[facility] [id number] [place], [place] [address]Bedtonrz [Moles/Vol]99 mmol/QNcopsg52-606IoklpwtjdPremier Health Miami Valley Hospital on above:Order Comment: Specimen Type: BLOOD SPECIMENOrdering Facility: [facility] Address:[address] [place], [place] [address]Performed By: #### 00945-5 ####[facility] [id number] [place], [place] [address]WX1 [Moles/Vol] 23 mmol/SUbmsxh87-37MgfmndbxsPremier Health Miami [facility] Hospital on above:Order Comment: Specimen Type: BLOOD SPECIMENOrdering Facility: [facility] Address:[address] [place], [place] [address]Performed By: #### 97804-0 ####[facility] [id number] [place], [place] [address]Ccrykqyxxo [Mass/Vol]1.23 mg/dLHigh0.73-1.22[facility] on above:Order Comment: Specimen Type: BLOOD SPECIMENOrdering Facility: [facility] Address:[address] [place], [place] [address]Performed By: #### 70179-3 ####[facility] LABCL[facility] [id number] [place], [place] [address]uQKLix SerPlBld CKD-EPI 685879 mL/min/1.73m???Normal>=60[facility] on above:Order Comment: Specimen Type: BLOOD SPECIMENOrdering Facility: [facility] Address:[address] [place], [place] [address]Result Comment: Estimated Glomerular Filtration Rate (eGFR) is calculated using the 2020 CKD-EPI creatinine equation. This equation utilizes serum creatinine, sex, and age as parameters. The creatinine assay has traceable calibration to isotope dilution- mass spectrometry. Refer to KDIGO guidelines for clinical interpretation. In patients with unstable renal function, e.g. those with acute kidney injury, the eGFR may not accurately reflect actual GFR.Performed By: #### 40537-0 ####[facility] LABCLIA [id number] [place], [place] [address]Zrqzvso [Mass/Vol]144 mg/oDFhce26-40MxniploqvPremier Health Miami [facility] Hospital on above:Order Comment: Specimen Type: BLOOD SPECIMENOrdering Facility: [facility] Address:[address] [place], [place] [address]Result Comment: The [place] [employer] (ADA) provides guidance for cutoff values for fasting glucose and random glucose. The ADA defines fasting as no caloric intake for at least 8 hours. Fasting plasma glucose results between 100 to 125 mg/dL indicate increased risk for diabetes (prediab etes).Fasting plasma glucose results greater than or equal to 126 mg/dL meet the criteria for diagnosis of diabetes. In the absence of unequivocal hyperglycemia, results should be confirmed by repeattesting. In a patient with classic symptoms of hyperglycemia or hyperglycemic crisis, random plasmaglucose results greater than or equal to 200 mg/dL meet the criteria for diagnosis of diabetes.Reference: Standards of Medical Care in Diabetes 2016, [place] [employer]. Diabetes Care. 2016.39(Suppl 1).Performed By: #### 15135-9 ####[facility] LABCLIA [id number] [place], [place] [address]Fdfbtwnbj [Moles/Vol]4.9 mmol/LNormal3.7-5.1CTriHealth Bethesda North [facility] on above:Order Comment: Specimen Type: BLOOD SPECIMENOrdering Facility: [facility] Address:[address] [place], [place] [address]Performed By: #### 81717-0 ####[facility] LABCLIA [id number] [place], [place] [address]Peyyrgc [Mass/Vol]6.8 g/dLNormal6.3-8.0[facility] on above:Order Comment: Specimen Type: BLOOD SPECIMENOrdering Facility: [facility] Address:[address] [place], [place] [address]Performed By: #### 08602- 8 ####[facility] LABCLIA [id number] [place], [place] [address]Iqnlqy [Moles/Vol]132 mmol/HQqt783-609NibtqvubuPremier Health [facility] Hospital on above:Order Comment: Specimen Type: BLOOD SPECIMENOrdering Facility: [facility] Address:[address] [place], [place] [address]Performed By: #### 40113-6 ####[facility] LABCLIA [id number] [place], [place] [address]Ufzb nitrogen [Mass/Vol]22 mg/dLNormal9-24[facility] on above:Order Comment: Specimen Type: BLOOD SPECIMENOrdering Facility: [facility] Address:[address] [place], [place] [address]Performed By: #### 72487-0 ####[facility] LABCLIA [id number] [place], [place] [address]OFMMbe 13-43-3758VKDSYtybvsFljtsyuef Clinic ClevelandCNOV on 78-59-8008LQXONbbjsxPojicqbsj Clinic ClevelandCNPTOUTREACHon 02-25-2025 CNPTOUTREACHNormalCUniversity Hospitals Parma Medical CenterLaboratory - Hematology and Cell countson 97-75-6125Gxowmolryk Ql (U)NegativeNegativeAdena Pike Medical CenterLaboratory - Urinalysison 32-34-2052Wcphenm Ql (U)NegativeNegative mg/dLAdena Pike Medical CenterNo Panel Informationon 15-48-9970GRGWNMCTI UA (POCT)NegativeNegativeAdena Pike Medical CenterCLARITY UA (POCT)ClearCleFairfield Medical CenterCOLOR UA (POCT)Light yellowAdena Pike Medical CenterGLUCOSE UA (POCT)NegativeNegative mg/dLAdena Pike Medical CenterKETONE UA (POCT) NegativeNegative mg/dLAdena Pike Medical CenterLEUKOCYTES UA (POCT)NegativeNegative [facility] CenterNITRITE UA (POCT)NegativeNegativeAdena Pike Medical CenterPH UA (POCT)7.0 4.5 - 8.0McCullough-Hyde Memorial HospitalPECIFIC GRAVITY UA (POCT)1.0151.005 - 1.030[facility] Medical CenterUROBILINOGEN UA (POCT)0.2Normal E.U./dLAdena Pike Medical CenterLocation:[facility], [address] [place] [address], [address] [place] [address] POINT OF CARE [facility] CenterNo Panel Informationon 04-27-7989XJCSWGPOSD: Cirrhotic liver morphology. No lesion. Patent hepatic vasculature with appropriately directed flow. Small volume abdominal ascites around the liver and in right lower quadrant. Rebar Fabricator: PSCB Transcribe Date/Time: Feb 19 2025 1:53P Dictated by : LISBETH REBOLLAR MD This examination was interpreted and the report reviewed and electronically signed by: LONNIE ANN MD on Feb 19 2025 3:15PM [facility] DIVISION OF RADIOLOGYRadiology Study observation (narrative)[facility] Panel InformationOrdered By: Ccf Provider on 28-05-8224Ofymrlbef ClinicUS ABD LIVER VASCULARon 30-82-3113VN ABD LIVER VASCULARNormalCleveland Clinic Espinosa US DOPPLER COMPLETEon 48-99-8396EY DOPPLER COMPLETENormalCHighland District Hospital.doppler Abdominal vesselson 02-19-2025* * *Final Report* * * DATE OF EXAM: Feb 19 2025 1:47PM RITA 1233 - US ABD LIVER VASCULAR / PROCEDURE REASON: Other ascites * * * * Physician Interpretation * * * * EXAMINATION: LIVER VASCULAR ULTRASOUND WITH DOPPLER IMAGING CLINICAL HISTORY: [place] liver biopsy 02/02/2025: Hepatic parenchyma with zone [...] with normal, phasic wave form. DIVISION OF RADIOLOGYProvider, [facility] [place] - 02/19/2025 * * *Final Report* * * DATE OF EXAM: Feb 19 2025 1:47PM RITA Cade3 - US ABD LIVER VASCULAR / PROCEDURE REASON: Other ascites * * * * Physician Interpretation * * * * EXAMINATION: LIVER VASCULAR ULTRASOUND WITH DOPPLER IMAGING CLINICAL HISTORY: [place] liver biopsy 02/02/2025: Hepatic parenchyma with zone [...] the liver and in right lower quadrant. Rebar Fabricator: ALONSO Transcribe Date/Time: Feb 19 2025 1:53P Dictated by : LISBETH REBOLLAR MD This examination was interpreted and the report reviewed and electronically signed by: LONNIE ANN MD on Feb 19 2025 3:15PM [facility].doppler Unspecified body regionon 02-19-2025* * *Final Report* * * DATE OF EXAM: Feb 19 2025 1:47PM RITA 1033 - US DOPPLER COMPLETE / PROCEDURE REASON: Other ascites * * * * Physician Interpretation * * * * EXAMINATION: LIVER VASCULAR ULTRASOUND WITH DOPPLER IMAGING CLINICAL HISTORY: [place] liver biopsy 02/02/2025: Hepatic parenchyma with zone [...] with normal, phasic wave form. DIVISION OF RADIOLOGYProvider, [facility] [place] - 02/19/2025 * * *Final Report* * * DATE OF EXAM: Feb 19 2025 1:47PM RITA Aranda3 - US DOPPLER COMPLETE / PROCEDURE REASON: Other ascites * * * * Physician Interpretation * * * * EXAMINATION: LIVER VASCULAR ULTRASOUND WITH DOPPLER IMAGING CLINICAL HISTORY: [place] liver biopsy 02/02/2025: Hepatic parenchyma with zone [...] the liver and in right lower quadrant. Rebar Fabricator: ALONSO Transcribe Date/Time: Feb 19 2025 1:53P Dictated by : LISBEHT REBOLLAR MD This examination was interpreted and the report reviewed and electronically signed by: LONNIE ANN MD on Feb 19 2025 3:15PM [facility] Centerprehensive metabolic 2000 panelon 23-00-8336Zvlbaan [Mass/Vol]4.0 g/dLNormal3.9-4.9CTriHealth Bethesda North [facility] on above:Order Comment: Specimen Type: BLOOD SPECIMENOrdering Facility: [facility] Address:[address] [place], [place] [address]Performed By: #### 66662- 8 ####[facility] LABCLIA [id number] [place], [place] [address]EYM [Catalytic activity/Vol]106 U/SCvgael02-010UfivntyvtPremier Health [facility] on above:Order Comment: Specimen Type: BLOOD SPECIMENOrdering Facility: [facility] Address:[address] [place], [place] [address]Performed By: #### 27583-4 ####[facility] LABCLIA [id number] [place], [place] [address]UCW [Catalytic activity/Vol]17 U/RTuolvp54-48AddveuborPremier Health Miami Valley Hospital on above:Order Comment: Specimen Type: BLOOD SPECIMENOrdering Facility: [facility] Address:[address] [place], [place] [address]Performed By: #### 20755- 8 ####[facility] LABCLIA [id number] [place], [place] [address]Utycq gap [Moles/Vol]12 mmol/LNormal8-15[facility] on above:Order Comment: Specimen Type: BLOOD SPECIMENOrdering Facility: [facility] Address:[address] [place], [place] [address]Performed By: #### 90017-4 ####[facility] LABCLIA [id number] [place], [place] [address]CZK [Catalytic activity/Vol]U/L Wbq70-22ZhwtxjojvPremier Health [facility] Hospital on above:Order Comment: Specimen Type: BLOOD SPECIMENOrdering Facility: [facility] Address:[address] [place], [place] [address]Performed By: #### 60988-2 ####[facility] LABCLIA [id number] [place], [place] [address]Hixigfvqp [Mass/Vol]0.5 mg/dLNormal0.2-1.3CTriHealth Bethesda [facility] on above:Order Comment: Specimen Type: BLOOD SPECIMENOrdering Facility: [facility] Address:[address] [place], [place] [address]Performed By: #### 14770- 8 ####[facility] LABCLIA [id number] [place], [place] [address]Wehktlq [Mass/Vol]9.2 mg/dLNormal8.5-10.2CTriHealth Bethesda North [facility] on above:Order Comment: Specimen Type: BLOOD SPECIMENOrdering Facility: [facility] Address:[address] [place], [place] [address]Performed By: #### 48584-3 ####[facility] LABCLIA [id number] [place], [place] [address]Orouezet [Moles/Vol]100 mmol/L Ekgwrk58-756BxwusivkePremier Health Miami Valley Hospital on above:Order Comment: Specimen Type: BLOOD SPECIMENOrdering Facility: [facility] Address:[address] [place], [place] [address]Performed By: #### 34431-6 ####[facility] LABCLIA [id number] [place] [address] CO2 [Moles/Vol]23 mmol/TKoxqbq96-14YcxlzcesbPremier Health [facility] Hospital on above: Order Comment: Specimen Type: BLOOD SPECIMENOrdering Facility: [facility] Address:[address] [place], [place] [address]Performed By: #### 16555- 8 ####[facility] LABCLIA [id number] [place], [place] [address]Tzmifeyhts [Mass/Vol]1.26 mg/dLHigh0.73-1.22[facility] on above:Order Comment: Specimen Type: BLOOD SPECIMENOrdering Facility: [facility] Address:[address] [place], [place] [address]Performed By: #### 61960-1 ####[facility] LABCLIA [id number] [place], [place] [address]zNZJio SerPlBld CKD-EPI 678915 mL/min/1.73m???Normal>=60[facility] on above:Order Comment: Specimen Type: BLOOD SPECIMENOrdering Facility: [facility] Address:[address] [place], [place] [address]Result Comment: Estimated Glomerular Filtration Rate (eGFR) is calculated using the 2020 CKD-EPI creatinine equation. This equation utilizes serum creatinine, sex, and age as parameters. The creatinine assay has traceable calibration to isotope dilution- mass spectrometry. Refer to KDIGO guidelines for clinical interpretation. In patients with unstable renal function, e.g. those with acute kidney injury, the eGFR may not accurately reflect actual GFR.Performed By: #### 94771-7 ####[facility] LABCLIA [id number] [place], [place] [address]Uoirhor [Mass/Vol]144 mg/nIBeqb93-99LkikodbkkPremier Health [facility] Hospital on above:Order Comment: Specimen Type: BLOOD SPECIMENOrdering Facility: [facility] Address:[address] [place] [address]Ufbdjj Comment: The [place] [employer] (ADA) provides guidance for cutoff values for fasting glucose and random glucose. The ADA defines fasting as no caloric intake for at least 8 hours. Fasting plasma glucose results between 100 to 125 mg/dL indicate increased risk for diabetes (prediab etes).Fasting plasma glucose results greater than or equal to 126 mg/dL meet the criteria for diagnosis of diabetes. In the absence of unequivocal hyperglycemia, results should be confirmed by repeattesting. In a patient with classic symptoms of hyperglycemia or hyperglycemic crisis, random plasmaglucose results greater than or equal to 200 mg/dL meet the criteria for diagnosis of diabetes.Reference: Standards of Medical Care in Diabetes 2016, [place] [employer]. Diabetes Care. 2016.39(Suppl 1).Performed By: #### 67046-4 ####[facility] LABCLIA [id number] [place], [place] [address]Cuyewxswx [Moles/Vol]4.2 mmol/LNormal3.7-5.1CTriHealth Bethesda [facility] on above:Order Comment: Specimen Type: BLOOD SPECIMENOrdering Facility: [facility] Address:[address] [place], [place] [address]Performed By: #### 31008-0 ####[facility] LABCLIA [id number] [place], [place] [address]Glridqr [Mass/Vol]6.8 g/dLNormal6.3-8.0[facility] on above:Order Comment: Specimen Type: BLOOD SPECIMENOrdering Facility: [facility] Address:[address] [place], [place] [address]Performed By: #### 39205- 8 ####[facility] LABCLIA [id number] [place], [place] [address]Yrietv [Moles/Vol]135 mmol/CEdo613-564KggrqjazsPremier Health [facility] Hospital on above:Order Comment: Specimen Type: BLOOD SPECIMENOrdering Facility: [facility] Address:[address] [place], [place] [address]Performed By: #### 34216-6 ####[facility] LABCLIA [id number] [place], [place] [address]Iblr nitrogen [Mass/Vol]27 mg/dLHigh9-24[facility] Clinic ClevelandComment on above:Order Comment: Specimen Type: BLOOD SPECIMENOrdering Facility: [facility] Address:[address] [place], [place] [address]Performed By: #### 29719-9 ####[facility] LABCLIA [id number] [place] [address] BRIEF OP NOTon 29-34-0868KDCHY OP NOTNormalCUniversity Hospitals Parma Medical CenterHISTORY PHYSICALon 12-24-4518OBBFNAH PHYSICALNormalCUniversity Hospitals Parma Medical CenterIR TRANSJUG LIVER BX W/PRESSon 22-61-5351SZ TRANSJUG LIVER BX W/PRESSNoSelect Medical TriHealth Rehabilitation HospitalNURSING PROGon 27-24-6016HHMPIYU PROGNormalTrihealth Bethesda [facility] PT EDon 07-60-3226LU EDNormMercy Memorial HospitalPathology biopsy report Abhijit (Tiss)on 48-49-7783NQ DISCLAIMERNormAvita Health System on above:Order Comment: Specimen Type: TISSUE SPECIMENOrdering Facility: [facility] Address: [address] [place], [place] [address]Result Comment: Laboratory Developed Test (LDT) Disclaimer:Performance characteristics of immunohistochemical, immunofluorescent, and chromogenic in-situ hybridization tests have been determined by the performing laboratory within [facility]'s [facility] HospitalFl[facility] Pathology and Laboratory Medicine Department ([facility], [facility], [facility], [facility], [facility], [facility], or [facility]) in a manner consistent with CLIA requirements. One or more of these tests may not have been cleared or approved by the FDA. [facility] is regulated under CLIA as qualified to perform high-complexity testing. These tests are used for clinical purposes. These should not be regarded as investigational or for research. Positive and negative controls stain appropriately.Performed By: #### 66449-7 ####[facility] LABCLIA [id number] [address] [address] [facility] CENTERIROHIO STATE [facility] LABORATORYCLIA [id number] [place] [address] [place] STATES OF AMERICACASE REPORTNoHarrison Community Hospital on above:Order Comment: Specimen Type: TISSUE SPECIMENOrdering Facility: [facility] Address: [address] [place], [place] [address]Result Comment: Surgical Pathology Report Case: [id number] Provider: Isaiah Pinto MD Collected: 02/02/2025 10:11 AMOrdering Location: [place] [address] Received: 02/02/2025 03:49 PMPathologist: Lucy Ngo MDSpecimen: Liver, BiopsyPerformed By: #### 25764-2 ####[facility] LABCLIA [id number] [address] STATES OF AMERICAFAJAMAICA PLAIN VA [facility] LABORATORYCLIA [id number] [address] STATES OF [facility]TE HOSPITALCLINICAL HISTORYelevated ALPOhioHealth Southeastern Medical CenterComascension borgess allegan hospital on above:Order Comment: Specimen Type: TISSUE SPECIMENOrdering Facility: [facility] Address: [address] [place], [place] [address]Performed By: #### 64607-8 ####[facility] LABCLIA [id number] [address] STATES [facility] LABORATORYCLIA [id number] [address] STATES OF AMERICADIAGNOSIS COMMENTNoHarrison Community Hospital on above:Order Comment: Specimen Type: TISSUE SPECIMENOrdering Facility: [facility] Address: [address] [place], [place] [address]Result Comment: The histologic examination shows 2 cores of liver parenchyma exhibiting adequate num stormy of portal tracts for histologic evaluation. Portal tracts exhibit minimal mixed inflammation composed of predominantly lymphocytes admixed with rare plasma cells and eosinophils. [place] bile ducts are identified along with bile [...] hepatocytes (score 0 of 4+). CK7 highlights [place] bile ducts as well as biliary metaplasia. Copper shows no evidence of copper deposition within hepatocytes. Reticulin stain highlights zone 3 hepatocyte atrophy. CMV stain is negative for Cytomegaloviral inclusions.The overall features are suggestive of underlying vascular flow (inflow/outflow) abnormality with pericellular fibrosis. The possible etiologies include cardiac abnormality, hepatic vascular abnormality, or underlying renal pathology etc. Correlation with clinical findin gs and imaging is strongly recommended.This case was reviewed in consultation with my colleague Dr.El Menard, who agrees with the diagnostic interpretation. Performed By: #### 28344-4 ####[facility] LABCLIA [id number] [address] LABORATORYIA [id number] [address] DIAGNOSISNormAvita Health System on above:Order Comment: Specimen Type: TISSUE SPECIMENOrdering Facility: [facility] Address: [address] [place], [place] [address]Result Comment: A. Liver, [place], biopsy:- Hepatic parenchyma with zone 3 patchy sinusoidal dilatation, patchy dilated/angulated portal vein branches, and pericellular fibrosis.- See comment. at 1452 EDTPerformed By: #### 15643-0 ####[facility] LABCLIA [id number] [address] LABORATORYIA [id number] [address] PERFORMING LABNoHarrison Community Hospital on above:Order Comment: Specimen Type: TISSUE SPECIMENOrdering Facility: [facility] Address: [address] [place], [place] [address]Result Comment: Diagnostic interpretation performed at: [facility], [address] [place] [address] CLIA# [id number] Director: Kanchan Thompsonformed By: #### 07041-8 ####[facility] LABCLIA [id number] [address] LABORATORYCLIA [id number] [address]GROSS DESCRIPTIONNormalCUniversity Hospitals Parma Medical CenterComment on above:Order Comment: Specimen Type: TISSUE SPECIMENOrdering Facility: [facility] Address: [address] [place], [place] [address]Result Comment: A. Liver, BiopsyReceived in formalin are two segments of cylindrical tissue aggregating to 1.5 x 0.2 x 0.1 cm, brown and of a soft and friable consistency. Totally submitted in one cassette.[facility] February 02, 2025 8:03 PMGross examination performed at [facility], [address] [place] [address] Performed By: #### 86419-5 ####[facility] LABIA [id number] [address] LABORATORYIA [id number] [address]ETURSTEMPLETON DEVELOPMENTAL CENTER PROGon 51-76-3076DUZQIYH PROGNormalTrihealth Bethesda Butler HospitalBapaintsville arh hospital metabolic 2000 panelOrdered By: Sudha Granger on 01-25-2025 Anion gap [Moles/Vol]13 mmol/L8 - 15 mmol/LCleveland ClinicCalcium [Mass/Vol]9.8 mg/dL8.5 - 10.2 mg/dLAdena Pike Medical CenterChloride [Moles/Vol]97 mmol/LLow98 - 107 mmol/LCleveland ClinicCO2 [Moles/Vol]25 mmol/L22 - 30 mmol/LCleveland [facility] Creatinine [Mass/Vol]1.55 mg/dLHigh0.73 - 1.22 mg/dLAdena Pike Medical CenterGFR/1.73 sq M.predicted among non-blacks MDRD (S/P/Bld) [Vol rate/Area]47 mL/min/{1.73_m2} Low- PINFCleveland ClinicComment on above:Estimated Glomerular Filtration Rate (eGFR) is calculated using the 2020 CKD-EPI creatinine equation. This equation utilizes serum creatinine, sex, and age as parameters. The creatinine assay has traceable calibration to isotope dilution-mass spectrometry. Refer to KDIGO guidelines for clinical interpretation. In patients with unstable renal function, e.g. those with acute kidney injury, the eGFRmay not accurately reflect actual GFR.Glucose [Mass/Vol]141 mg/sTEodv67 - 99 mg/dLAdena Pike Medical Center Comment on above:The [place] [employer] (ADA) provides guidance for cutoff values for fasting glucose andrandom glucose. The ADA defines fasting as no [...] [place] [employer]. Diabetes Care. 2016.39(Suppl 1). Interpretation and review of laboratory resultsAbnormalCleveland ClinicPotassium [Moles/Vol]3.7 mmol/L3.7 - 5.1 mmol/LCleveland ClinicSodium [Moles/Vol]135 mmol/CFnx371 - 144 mmol/LCleveland ClinicUrea nitrogen [Mass/Vol]56 mg/dLHigh9 - 24 mg/dLGreene Memorial HospitalBasi metabolic 2000 panelon 01-25-2025 Anion gap [Moles/Vol]13 mmol/LNormal8-15[facility]hes[facility] Butler HospitalComment on above:Order Comment: Specimen Type: BLOOD SPECIMENOrdering Facility: [facility] Address:[address] [place], [place] [address]Okvetilbg By: #### 10970-7, 30945-4 ####[facility] LABCLIA [id number] [place], [place] [address]Awhfrrd [Mass/Vol]9.8 mg/dLNormal8.5-10.2 [facility] on above:Order Comment: Specimen Type: BLOOD SPECIMENOrdering Facility: [facility] Address:[address] [place], [place] [address]Performed By: #### 71268-0, 21161-8 ####[facility] LABCLIA [id number] [place], [place] [address]Lkxgkyqj [Moles/Vol]97 mmol/HDyk32-598QcbkuwgyaPremier Health Miami Valley Hospital on above:Order Comment: Specimen Type: BLOOD SPECIMENOrdering Facility: [facility] Address:[address] [place], [place] [address]Performed By: #### 30831- 9, 15340-1 ####[facility] LABCLIA [id number] [place], [place] [address]MO1 [Moles/Vol]25 mmol/EJbqknc89-12QajkapzrwPremier Health [facility] Hospital on above:Order Comment: Specimen Type: BLOOD SPECIMENOrdering Facility: [facility] Address:[address] [place], [place] [address]Performed By: #### 68018-4, 34735-2 ####[facility] LABCLIA [id number] [place], [place] [address]Btlhaiqhyp [Mass/Vol] 1.55 mg/dLHigh0.73-1.22[facility] on above:Order Comment: Specimen Type: BLOOD SPECIMENOrdering Facility: [facility] Address:[address] [place] [address]Jlgvvyhcz By: #### 64158-4, 35898-5 ####[facility] LABCLIA [id number] [place], [place] [address]wAQLxk SerPlBld CKD-EPI 480808 mL/min/1.73m???Low>=60 [facility] on above:Order Comment: Specimen Type: BLOOD SPECIMENOrdering Facility: [facility] Address:[address] [place], [place] [address]Result Comment: Estimated Glomerular Filtration Rate (eGFR) is calculated using the 2020 CKD-EPI creatinine equation. This equation utilizes serum creatinine, sex, and age as parameters. The creatinine assay has traceable calibration to isotope dilution-mass spectrometry. Refer to KDIGO guidelines for clinical interpretation. In patients with unstable renal function, e.g. those with acute kidney injury, the eGFR may not accurately reflect actual GFR.Performed By: #### 45231-9, 15803-1 ####[facility] LABIA [id number] [place], [place] [address]Tnkjrwo [Mass/Vol]141 mg/sBQzsx01-50PqynqnjplPremier Health [facility] Hospital on above:Order Comment: Specimen Type: BLOOD SPECIMENOrdering Facility: [facility] Address:[address] [place], [place] [address]Result Comment: The [place] Diabetes Association (ADA) provides guidance for cutoff values for fast ing glucose and random glucose. The ADA defines fasting as no caloric intake for at least 8 hours. Fasting plasma glucose results between 100 to 125 mg/dL indicate increased risk for diabetes (prediabetes).Fasting plasma glucose results greater than or equal to 126 mg/dL meet the criteria for diagnosis of diabetes. In the absence of unequivocal hyperglycemia, results should be confirmed by repeattesting. In a patient with classic symptoms of hyperglycemia or hyperglycemic crisis, random plasmaglucose results greater than or equal to 200 mg/dL meet the criteria for diagnosis of diabetes.Reference: Standards of Medical Care in Diabetes 2016, [place] Diabetes Association. Diabetes Care. 2016.39(Suppl 1).Performed By: #### 62592-5, 41498-7 ####[facility] LABIA [id number] [place] [address] Potassium [Moles/Vol]3.7 mmol/LNormal3.7-5.1CTriHealth [facility] on above:Order Comment: Specimen Type: BLOOD SPECIMENOrdering Facility: [facility] Address:[address] [place], [place] [address]Performed By: #### 07179-5, 71594-3 ####[facility] LABCLIA [id number] [place], [place] [address]Kjoxkf [Moles/Vol]135 mmol/WAsy246-585 [facility] on above:Order Comment: Specimen Type: BLOOD SPECIMENOrdering Facility: [facility] Address:[address] [place] [address]Jwxyzuvcg By: #### 02115-4, 84287-3 ####[facility] LABCLIA [id number] [place], [place] [address]Azpg nitrogen [Mass/Vol]56 mg/dLHigh9-24[facility] on above: Order Comment: Specimen Type: BLOOD SPECIMENOrdering Facility: [facility] Address:[address] [place], [place] [address]Performed By: #### 76177- 9, 49358-1 ####[facility] LABCLIA [id number] [place], [place] [address]QZE panel Auto (Bld)on 46-69-3306Ssnrftukatp distribution width (RBC) [Ratio]14.7 %11.5 - 15.0 %[facility] Medical CenterHematocrit (Bld) [Volume fraction]37.9 %Low39.0 - 51.0 %[facility] Medical CenterHemoglobin (Bld) [Mass/Vol]12.2 g/dLLow13.0 - 17.0 g/dLAdena Pike Medical CenterInterpretation and review of laboratory resultsAbnormalCUniversity Hospitals Portage Medical CenterH (RBC) [Entitic mass]32.5 pg26.0 - 34.0 pgCUniversity Hospitals Portage Medical CenterHC (RBC) [Mass/Vol]32.2 g/dL30.5 - 36.0 g/dLOhio Valley HospitalV (RBC) [Entitic vol]101.1 sCTcak75.0 - 100.0 [facility] Nucleated RBC (Bld) [#/Vol]NINFCMartin Memorial HospitalPlatelet mean volume (Bld) [Entitic vol]9.8 fL9.0 - 12.7 fLCMartin Memorial HospitalPlatelets (Bld) [#/Vol]197 10*3/uLAdena Pike Medical CenterRBC (Bld) [#/Vol]3.75 10*6/uLLow4.20 - 6.00 m/[facility] HospitalWBC (Bld) [#/Vol]8.05 10*3/[facility] Medical CenterErythrocyte distribution width (RBC) [Ratio]14.7 %Qcekce62.5-15.0[facility] Comment on above:Order Comment: Specimen Type: BLOOD SPECIMENOrdering Facility: [facility] Address:[address] [place] [address] Performed By: #### 69541-2 ####[facility] LABCLIA [id number] [place], [place] [address]Rrggwbuebz (Bld) [Volume fraction]37.9 %Low39.0-51.0[facility] Soin Medical Centerment on above:Order Comment: Specimen Type: BLOOD SPECIMENOrdering Facility: [facility] Address:[address] [place], [place] [address]Performed By: #### 21953- 2 ####[facility] LABIA [id number] [place], [place] [address]Nerpwqoznn (Bld) [Mass/Vol]12.2 g/dLLow13.0-17.0[facility] Butler HospitalComment on above:Order Comment: Specimen Type: BLOOD SPECIMENOrdering Facility: [facility] Address:[address] [place], [place] [address]Performed By: #### 96920-4 ####[facility] LABCLIA [id number] [place], [place] [address]BMA (RBC) [Entitic mass]32.5 vfSsqegt85.0-34.0[facility] on above: Order Comment: Specimen Type: BLOOD SPECIMENOrdering Facility: [facility] Address:[address] [place], [place] [address]Performed By: #### 59567- 2 ####[facility] LABCLIA [id number] [place], [place] [address]RMMQ (RBC) [Mass/Vol]32.2 g/xWDwxziq54.5-36.0[facility] on above:Order Comment: Specimen Type: BLOOD SPECIMENOrdering Facility: [facility] Address:[address] [place], [place] [address]Performed By: #### 94973-6 ####[facility] LABCLIA [id number] [place], [place] [address]WVQ (RBC) [Entitic vol]101.1 sPNmfw19.0-100.0[facility] on above: Order Comment: Specimen Type: BLOOD SPECIMENOrdering Facility: [facility] Address:[address] [place], [place] [address]Performed By: #### 68185- 2 ####[facility] LABCLIA [id number] [place], [place] [address]Onkfcbtjl RBC (Bld) [#/Vol]10*3/uLNormal<0.01[facility] on above:Order Comment: Specimen Type: BLOOD SPECIMENOrdering Facility: [facility] Address:[address] [place], [place] [address]Performed By: #### 52606-4 ####[facility] LABCLIA [id number] [place], [place] [address]Quzetubt mean volume (Bld) [Entitic vol]9.8 fLNormal9.0-12.7CTriHealth Bethesda [facility] on above:Order Comment: Specimen Type: BLOOD SPECIMENOrdering Facility: [facility] Address:[address] [place] [address] Performed By: #### 39665-7 ####[facility] LABIA [id number] [place], [place] [address]Eewyohqsp (Bld) [#/Vol]197 10*3/dUVwxdyx829-895OiouotpopPremier Health Miami [facility] Hospital on above:Order Comment: Specimen Type: BLOOD SPECIMENOrdering Facility: [facility] Address:[address] [place] [address]Wmulhqqeb By: #### 81845-0 ####[facility] LABCLIA [id number] [place], [place] [address]FQF (Bld) [#/Vol]3.75 10*6/uLLow4.20-6.00[facility] on above:Order Comment: Specimen Type: BLOOD SPECIMENOrdering Facility: [facility] Address:[address] [place], [place] [address]Performed By: #### 25904-6 ####[facility] LABCLIA [id number] [place], [place] [address]WHA (Bld) [#/Vol]8.05 10*3/uL Normal3.70-11.00[facility] on above:Order Comment: Specimen Type: BLOOD SPECIMENOrdering Facility: [facility] Address:[address] [place], [place] [address]Performed By: #### 97418-7 ####[facility] LABCLIA [id number] [place], [place] [address]LCLKCKRSGey 68-46-5905Iyxxdegyo [Mass/Vol]2.2 mg/dL1.7 - 2.3 mg/dLAdena Pike Medical CenterMagnesium SerPl-mCncon 14-75-3293Jsouotaxl [Mass/Vol] 2.2 mg/dLNormal1.7-2.3CTriHealth [facility] on above:Order Comment: Specimen Type: BLOOD SPECIMENOrdering Facility: [facility] Address:[address] [place], [place] [address]Performed By: #### 13416-9, 17566-4 ####[facility] LABIA [id number] [place], [place] [address]Gupwsyujb [Mass/Vol]on 34-03-2720Jrifuurnmwmxqv and review of laboratory resultsNormalCSt. Elizabeth HospitalCNOVon 46-34-3525XGLLPxvuhsYzfimxfyi Clinic FzwbzchebN7ZJ SerPl-mCncon 80-87-5589Ywgtg 1 antitrypsin [Mass/Vol]167 mg/zBFilblc31-124MgbfiqipePremier Health [facility] on above:Order Comment: Specimen Type: BLOOD SPECIMENOrdering Facility: [facility] Address:[address] [place] [address] Performed By: #### 29340-1, 1825-9, 2324-2, 2276-4 ####[facility] LABCLIA [id number] [place] [id number] [place] AMERICAANA BY IFA WITH REFLEXon 00-35-2808Qidlfhb Ab Ql (S)Negative NormalNegativePrem[facility] Health [facility] on above:Order Comment: Specimen Type: BLOOD SPECIMENOrdering Facility: [facility] Address:[address] [place], [place] [address]Result Comment: Anti-nuclear antibody test is used as an aid in diagnosis of systemic autoimmune diseases. Where positive and clinically warranted, follow-up using disease-specific testing is recommended. Low positive titers are not uncommon with advanced age, certain chronic infections, and malignancies among others.Test methodology: Indirect fluorescence immunoassay (IFA) using HEp-2 cells.Performed By: #### ANAIFR ####[facility] LABCLIA [id number] [address] STATES OF [facility] HOSPITALCBC panel Auto (Bld)on 01-08-2025 Erythrocyte distribution width (RBC) [Ratio]15.8 %High11.5-15.0[facility] on above:Order Comment: Specimen Type: BLOOD SPECIMENOrdering Facility: [facility] Address:[address] [place], [place] [address]Performed By: #### 66848-2 ####[facility] LABCLIA [id number] [place], [place] [address]Hskrsbhxlg (Bld) [Volume fraction]37.0 %Low39.0-51.0[facility] on above:Order Comment: Specimen Type: BLOOD SPECIMENOrdering Facility: [facility] Address:[address] [place], [place] [address]Performed By: #### 77812- 2 ####[facility] LABCLIA [id number] [place], [place] [address]Scbsebodjn (Bld) [Mass/Vol]11.7 g/dLLow13.0-17.0[facility] on above:Order Comment: Specimen Type: BLOOD SPECIMENOrdering Facility: [facility] Address:[address] [place], [place] [address]Performed By: #### 87498-3 ####[facility] LABCLIA [id number] [place], [place] [address]MEP (RBC) [Entitic mass]32.7 lcOraksl86.0-34.0[facility] on above: Order Comment: Specimen Type: BLOOD SPECIMENOrdering Facility: [facility] Address:[address] [place], [place] [address]Performed By: #### 31242- 2 ####[facility] LABCLIA [id number] [place], [place] [address]ZRTE (RBC) [Mass/Vol]31.6 g/lUXowrxz12.5-36.0[facility] on above:Order Comment: Specimen Type: BLOOD SPECIMENOrdering Facility: [facility] Address:[address] [place], [place] [address]Performed By: #### 99364-0 ####[facility] LABCLIA [id number] [place], [place] [address]LYP (RBC) [Entitic vol]103.4 aSMxec75.0-100.0[facility] on above: Order Comment: Specimen Type: BLOOD SPECIMENOrdering Facility: [facility] Address:[address] [place], [place] [address]Performed By: #### 39655- 2 ####[facility] LABCLIA [id number] [place], [place] [address]Dlmonukxp RBC (Bld) [#/Vol]10*3/uLNormal<0.01[facility] on above:Order Comment: Specimen Type: BLOOD SPECIMENOrdering Facility: [facility] Address:[address] [place], [place] [address]Performed By: #### 12576-4 ####[facility] LABCLIA [id number] [place], [place] [address]Hhygoohq mean volume (Bld) [Entitic vol]9.7 fLNormal9.0-12.7CTriHealth [facility] on above:Order Comment: Specimen Type: BLOOD SPECIMENOrdering Facility: [facility] Address:[address] [place] [address] Performed By: #### 02809-4 ####[facility] LABCLIA [id number] [place], [place] [address]Kjbsqilnb (Bld) [#/Vol]228 10*3/sKPtxjok973-778FhiticgwmPremier Health [facility] Hospital on above:Order Comment: Specimen Type: BLOOD SPECIMENOrdering Facility: [facility] Address:[address] [place], [place] [address]Performed By: #### 51868-4 ####[facility] LABCLIA [id number] [place], [place] [address]FPA (Bld) [#/Vol]3.58 10*6/uLLow4.20-6.00[facility] on above:Order Comment: Specimen Type: BLOOD SPECIMENOrdering Facility: [facility] Address:[address] [place], [place] [address]Performed By: #### 46395-6 ####[facility] LABCLIA [id number] [place], [place] [address]PBS (Bld) [#/Vol]9.63 10*3/uL Normal3.70-11.00[facility] on above:Order Comment: Specimen Type: BLOOD SPECIMENOrdering Facility: [facility] Address:[address] [place], [place] [address]Performed By: #### 79427-3 ####[facility] LABCLIA [id number] [place], [place] [address]JXP IgM Qnon 87-69-6486SXO IGM, QUALPositiveAbnormal NegativePrem[facility] Health [facility] on above:Order Comment: Specimen Type: BLOOD SPECIMENOrdering Facility: [facility] Address:[address] [place], [place] [address]Result Comment: The result suggests recent infection with Cytomegalovirus (CMV) or recent CMV reactivation. CMV IgM levels may remain elevated for extended periods after a primary infection. Clinical correlation is required.Performed By: #### 7853-5 ####[facility] LABCLIA [id number] [place] [address] [place] OF AMERICAComprehensive metabolic 2000 panelon 91-69-1381Esmeibu [Mass/Vol]4.1 g/dLNormal3.9-4.9CTri[facility] on above:Order Comment: Specimen Type: BLOOD SPECIMENOrdering Facility: [facility] Address:[address] [place], [place] [address]Performed By: #### 47080- 8 ####[facility] LABCLIA [id number] [place], [place] [address]QLO [Catalytic activity/Vol]92 U/FVhoczv93-643CyhgwstzzPrem[facility] on above:Order Comment: Specimen Type: BLOOD SPECIMENOrdering Facility: [facility] Address:[address] [place], [place] [address]Performed By: #### 16408-0 ####[facility] LABCLIA [id number] [place], [place] [address]IKW [Catalytic activity/Vol]18 U/ALsjijt34-73OzjjdldusPremier Health [facility] on above:Order Comment: Specimen Type: BLOOD SPECIMENOrdering Facility: [facility] Address:[address] [place], [place] [address]Performed By: #### 15091- 8 ####[facility] LABCLIA [id number] [place], [place] [address]Rylfq gap [Moles/Vol]8 mmol/LNormal8-15[facility] on above:Order Comment: Specimen Type: BLOOD SPECIMENOrdering Facility: [facility] Address:[address] [place], [place] [address]Performed By: #### 49402-8 ####[facility] LABCLIA [id number] [place], [place] [address]SYG [Catalytic activity/Vol]5 U/LPff96-95PtwmdsvuePremier Health [facility] on above:Order Comment: Specimen Type: BLOOD SPECIMENOrdering Facility: [facility] Address:[address] [place], [place] [address]Performed By: #### 79628-3 ####[facility] LABCLIA [id number] [place] [address] Bilirubin [Mass/Vol]0.6 mg/dLNormal0.2-1.3CTriHealth [facility] on above:Order Comment: Specimen Type: BLOOD SPECIMENOrdering Facility: [facility] Address:[address] [place], [place] [address]Performed By: #### 58165-0 ####[facility] LABCLIA [id number] [place], [place] [address]Yslqddd [Mass/Vol]9.2 mg/dLNormal8.5-10.2CTri[facility] on above:Order Comment: Specimen Type: BLOOD SPECIMENOrdering Facility: [facility] Address:[address] [place], [place] [address]Performed By: #### 36777-0 ####[facility] LABCLIA [id number] [place], [place] [address]Ziddaaag [Moles/Vol]101 mmol/KVafema99-238XflngvptcPremier Health [facility] on above: Order Comment: Specimen Type: BLOOD SPECIMENOrdering Facility: [facility] Address:[address] [place], [place] [address]Performed By: #### 02888- 8 ####[facility] LABCLIA [id number] [place], [place] [address]LQ7 [Moles/Vol]29 mmol/IOgznud50-90ZwwzfthswPremier Health [facility] on above:Order Comment: Specimen Type: BLOOD SPECIMENOrdering Facility: [facility] Address:[address] [place], [place] [address]Performed By: #### 69866-1 ####[facility] LABCLIA [id number] [place], [place] [address]Bxkyqknmxr [Mass/Vol]1.46 mg/dL High0.73-1.22[facility] on above:Order Comment: Specimen Type: BLOOD SPECIMENOrdering Facility: [facility] Address:[address] [place], [place] [address]Performed By: #### 11603-9 ####[facility] LABIA [id number] [place] [address] eGFRcr SerPlBld CKD-EPI 763180 mL/min/1.73m???Low>=60[facility] Comment on above:Order Comment: Specimen Type: BLOOD SPECIMENOrdering Facility: [facility] Address:[address] [place], [place] [address]Result Comment: Estimated Glomerular Filtration Rate (eGFR) is calculated using the 2020 CKD-EPI creatinine equation. This equation utilizes serum creatinine, sex, and age as parameters. The creatinine assay has traceable calibration to isotope dilution-mass spectrometry. Refer to KDIGO guidelines for clinical interpretation. In patients with unstable renal function, e.g. those with acute kidney injury, the eGFR may not accurately reflect actual GFR.Performed By: #### 05883-3 ####[facility] LABCLIA [id number] [place], [place] [address]Gzqlhuf [Mass/Vol]116 mg/wUNyar91-69SwftyjynoPremier Health [facility] on above:Order Comment: Specimen Type: BLOOD SPECIMENOrdering Facility: [facility] Address:[address] [place], [place] [address]Result Comment: The [place] Diabetes Association (ADA) provides guidance for cutoff values for fasting glucose and random glucose. The ADA defines fasting as no caloric intake for at least 8 hours. Fasting plasma glucose results between 100 to 125 mg/dL indicate increased risk for diabetes (prediab etes).Fasting plasma glucose results greater than or equal to 126 mg/dL meet the criteria for diagnosis of diabetes. In the absence of unequivocal hyperglycemia, results should be confirmed by repeattesting. In a patient with classic symptoms of hyperglycemia or hyperglycemic crisis, random plasmaglucose results greater than or equal to 200 mg/dL meet the criteria for diagnosis of diabetes.Reference: Standards of Medical Care in Diabetes 2016, [place] [employer]. Diabetes Care. 2016.39(Suppl 1).Performed By: #### 99678-7 ####[facility] LABCLIA [id number] [place], [place] [address]Lagauwewy [Moles/Vol]3.9 mmol/LNormal3.7-5.1CTriHealth [facility] on above:Order Comment: Specimen Type: BLOOD SPECIMENOrdering Facility: [facility] Address:[address] [place] [address]Vlzclatyt By: #### 55383-3 ####[facility] LABCLIA [id number] [place], [place] [address]Dlfdxht [Mass/Vol]7.4 g/dLNormal6.3-8.0[facility] on above:Order Comment: Specimen Type: BLOOD SPECIMENOrdering Facility: [facility] Address:[address] [place], [place] [address]Performed By: #### 00473- 8 ####[facility] LABCLIA [id number] [place], [place] [address]Zcghhr [Moles/Vol]138 mmol/RZxdlzk712-501HeraovtcuPremier Health [facility] on above:Order Comment: Specimen Type: BLOOD SPECIMENOrdering Facility: [facility] Address:[address] [place], [place] [address]Performed By: #### 76317-5 ####[facility] LABCLIA [id number] [place], [place] [address]Zwiu nitrogen [Mass/Vol]56 mg/dLHigh9-24[facility] on above:Order Comment: Specimen Type: BLOOD SPECIMENOrdering Facility: [facility] Address:[address] [place], [place] [address]Performed By: #### 19065-1 ####[facility] LABCLIA [id number] [place] [address] Ferritin SerPl-mCncon 90-26-4451Ylocdexs [Mass/Vol]71.9 ng/nNTwjoru51.3-565.7 [facility] on above:Order Comment: Specimen Type: BLOOD SPECIMENOrdering Facility: [facility] Address:[address] [place], [place] [address]Performed By: #### 90245-0, 7-9, 2323-2, 2275-4 ####[facility] LABCLIA [id number] [place] [address] [place] OF AMERICAGGT SerPl-cCncon 28-20-1279Mwxdo glutamyl transferase [Catalytic activity/Vol]123 U/MKwec25-44JtgcyzrgnPremier Health [facility] on above:Order Comment: Specimen Type: BLOOD SPECIMENOrdering Facility: [facility] Address:[address] [place], [place] [address]Performed By: #### 73302-2, 2-9, 2323-2, 2275-4 ####[facility] LABCLIA [id number] [place] [address] [place] AMERICAHBV core Ab Ser Qlon 78-79-7661GFD core Ab Ql (S) NegativeNormalNegativePrem[facility] Health [facility] on above:Order Comment: Specimen Type: BLOOD SPECIMENOrdering Facility: [facility] Address:[address] [place], [place] [address]Result Comment: No evidence of current or past infection with Hepatitis B virus. Should recent infection be suspected, repeat testing may be considered 3-4 weeks after this draw.Performed By: #### 65681-9, 92227-3, 5195-3 ####[facility] LABIA [id number] [address] [place] HBV surface Ab Ql (S)on 10-34-2136XXF surface Ab Qn (S)<8.00NoHarrison Community Hospital on above:Order Comment: Specimen Type: BLOOD SPECIMENOrdering Facility: [facility] Address:[address] [place], [place] [address]Result Comment: <8 mIU/mL: No serological evidence of immunity to Hepatitis B Virus.>/= 8 to <12 mIU/mL: No serological evidence of immunity to Hepatitis B Virus.>/= 12 mIU/mL: Consistentwith serological evidence of immunity to Hepatitis B Virus.Performed By: #### 10465-5, 25662-3, 5-3 ####[facility] LABIA [id number] STATES OF [facility] HOSPITALHBV surface Ab Ser Qlon 71-61-6646BMI surface Ab Ql (S)NegativeNormAvita Health System on above:Order Comment: Specimen Type: BLOOD SPECIMENOrdering Facility: [facility] Address:[address] [place], [place] [address]Result Comment: No serological evidence of immunity to Hepatitis B Virus.Performed By: #### 25745-5, 67474-0, 5-3 ####[facility] LABIA [id number] V[place] [id number] [place] HBV surface Ag Ser Qlon 66-23-7258XNO surface Ag Ql (S)NegativeNormalNegative [facility] on above:Order Comment: Specimen Type: BLOOD SPECIMENOrdering Facility: [facility] Address:[address] [place], [place] [address]Performed By: #### 00736-6, 34960-4, 5195-3 ####[facility] LABCLIA [id number] [place] [id number] [place] OF AMERICAHCV Ab Ser Qlon 42-91-1689KUA Ab Ql (S)Negative NormalNegativePrem[facility] Health [facility] on above:Order Comment: Specimen Type: BLOOD SPECIMENOrdering Facility: [facility] Address:[address] [place], [place] [address]Result Comment: The result suggests no evidence of infection with Hepatitis C virus. Should recent infection be suspected, repeat testing may be considered 4-6 weeks after this draw.Performed By: #### 59557-8 ####[facility] LABCLIA [id number] [address] STATES OF AMERICAIron and Iron binding capacity panelon 20-58-8992Zmes [Mass/Vol]63 ug/mDXmwzss34-778JwmbgljikPremier Health [facility] on above:Order Comment: Specimen Type: BLOOD SPECIMENOrdering Facility: [facility] Address:[address] [place], [place] [address]Performed By: #### 47423-2, 1825-9, 2324-2, 2276-4 ####[facility] LABCLIA [id number] [address] OF AMERICAIron binding capacity [Mass/Vol]379 ug/tXPxdddt284-176 [facility] on above:Order Comment: Specimen Type: BLOOD SPECIMENOrdering Facility: [facility] Address:[address] [place], [place] [address]Performed By: #### 12613-5, 1825-9, 2324-2, 2276-4 ####[facility] LABCLIA [id number] [address] AVENUEDESK [id number]Iron/TIBC [Molar ratio]16.6 % Pzjzfn96.0-57.0[facility] on above:Order Comment: Specimen Type: BLOOD SPECIMENOrdering Facility: [facility] Address:[address] [place], [place] [address]Performed By: #### 95462-6, 1825-9, 2324-2, 2276-4 ####[facility] LABCLIA [id number] [address] STREETLIVER-KIDNEY MICROSOME ANTIBODY, IGGon 16-30-2214XGFDY-KIDNEY MICROSOMAL ABS<1:20Normal<1:20[facility] on above:Order Comment: Specimen Type: BLOOD SPECIMENOrdering Facility: [facility] Address:[address] [place], [place] [address]Result Comment: INTERPRETIVE INFORMATION: Rjhmy-Huysvx-Vitqwozrr Abs, IgGLiver-Kidney Microsome IgGantibody (anti-LKM), as detected byindirect immunofluorescent antibody (IFA) techniques, may beobserved in patients with autoimmune hepatitis type 2 (AIH-2),AIH-2 associated with isqrgqhnyftfeewkxhkhrcufjoaj-ksqotmbizbc-oikloykpwd dystrophy (APECED),viral hepatitis C or D, and some forms of drug-induced hepatitis.This IFA does not differentiate among the four types of LKMantibodies (LKM-1, LKM-2,LKM-3, and a fourth type that glljqvnqjwNYF2V8 and CY antigens). Of these, anti-LKM-1 (ynpgztjfutC133AGF7) IgG antibodies are considered specific for AIH-2.This test was developed and its performance characteristicsdetermined by [facility]. It has not been cleared orapproved by the US Food and Drug Administration. This test wasperformed in a CLIA certified laboratory and is intended forclinical purposes.Performed By: [facility] [place] [id number] Director: Anne-Marie Correa MD, PhDCLIA Number: [id number] By: #### LKM ####[facility] [id number] [place], [place] [address]Yectaobooycj Ab IF Ql (S)on 02-74-2295Nflsnohvdbms M2 Ab IA Qn (S)4.9 UnitsNormal<=20.0[facility] Soin Medical Centerment on above: Order Comment: Specimen Type: BLOOD SPECIMENOrdering Facility: [facility] Address:[address] [place], [place] [address]Performed By: #### 69124- 1, 04376-0 ####[facility] LABCLIA [id number] [place] A VENUEDESK [address]ETMitochondria M2 Ab Ql (S)NegativeNormalNegativePremier Health [facility] Hospital on above:Order Comment: Specimen Type: BLOOD SPECIMENOrdering Facility: [facility] Address:[address] [place], [place] [address]Result Comment: Anti- mitochondrial antibody test is used as an aid in diagnosis of primary biliary c holangitis. Clinical correlation is required.Performed By: #### 57387-3, 34260-9 ####[facility] LABCLIA [id number] [place] AVENUESENECA HOSPITALK [address]ETPT panel Coag (PPP)on 01-08-2025 INR Coag (PPP) [Relative time]1.1 {INR}Normal0.9-1.3CUniversity Hospitals [facility] Comment on above:Order Comment: Specimen Type: BLOOD SPECIMENOrdering Facility: [facility] Address:[address] [place], [place] [address]Result Comment: Vitamin K Antagonist (VKA) Therapeutic Range: INR 2 to 3 (Target INR of 2.5)Note: For patients treated with VKA drugs, such as warfarin, the [place] [employer] 2012 Guideline recommends a therapeutic INR range of 2 to 3 (target INR of 2.5). This recommendation includes high-risk patients with antiphospholipid syndrome with previous arterial or venous thromboembolism, current-generation mechanical or bioprosthetic aortic heart valve replacement.Note: Patients with mechanical aortic valve replacement and additional risk factors for thromboembolic events (atrialfibrillation, previous thromboembolism, LV dysfunction, hypercoagulable conditions) or an older gene ration mechanical AVR (i.e., ball in-Cage) or any mechanical MVR should have a INR therapeutic range of 2.5 to 3.5 (target INR of 3).Camilla GH, et al. Chest 2012, 141:7S-47SNishimcecil RA, et al. [facility] 2017, 70: 252-289Performed By: #### 25512-0 ####[facility] LABIA [id number] [place] [id number] [place] OF [facility] HOSPITALPT Coag (PPP) [Time] 12.2 sNormal9.7-13.0[facility] on above:Order Comment: Specimen Type: BLOOD SPECIMENOrdering Facility: [facility] Address:[address] [place], [place] [address]Performed By: #### 58334-5 ####[facility] [id number] [address] STATES OF [facility] HOSPITALSmooth muscle Ab Ql (S)on 86-10-8281RCZTI SMOOTH MUSCLE IGG QUALITATIVENegativeNormalNegativePremier Health [facility] Hospital on above:Order Comment: Specimen Type: BLOOD SPECIMENOrdering Facility: [facility] Address:[address] [place], [place] [address]Performed By: #### 85576-3, 87120-3 ####[facility] [id number] [address] STATES OF [facility] HOSPITALACTIN SMOOTH MUSCLE IGG MJFKOZHNOAWV53 UnitsNormal<20[facility] on above:Order Comment: Specimen Type: BLOOD SPECIMENOrdering Facility: [facility] Address:[address] [place], [place] [address]Performed By: #### 29735-6, 27561-8 ####[facility] LABIA [id number] [address] [address] [place] OF AMERICAXR CHEST 2V FRONTAL/LATon 62-75-5376ZD CHEST 2V FRONTAL/LAT NormalCleSt. Elizabeth HospitalBapaintsville arh hospital metabolic 2000 panelon 86-29-2521Jsfro gap [Moles/Vol]12 mmol/LNormal8-15[facility] on above:Order Comment: Specimen Type: BLOOD SPECIMENOrdering Facility: [facility] Address:[address] [place], [place] [address]Performed By: #### 47723- 2 ####[facility] LABCLIA [id number] [address] [address] [place] OF AMERICACalcium [Mass/Vol]9.6 mg/dLNormal 8.5-10.2CTriHealth Bethesda [facility] on above:Order Comment: Specimen Type: BLOOD SPECIMENOrdering Facility: [facility] Address:[address] [place], [place] [address]Performed By: #### 64915-7 ####[facility] LABCLIA [id number] [address] [address] [place] AMERICAChloride [Moles/Vol]98 mmol/AKfuigx81-278AjtnzzxcbPremier Health Miami [facility] Hospital on above:Order Comment: Specimen Type: BLOOD SPECIMENOrdering Facility: [facility] Address:[address] [place], [place] [address]Performed By: #### 74657-9 ####[facility] LABCLIA [id number] [address] [address] [place] OF AMERICACO2 [Moles/Vol]26 mmol/OKkescd02-68XtjxjtmoePremier Health Miami Valley Hospital on above:Order Comment: Specimen Type: BLOOD SPECIMENOrdering Facility: [facility] Address:[address] [place], [place] [address]Performed By: #### 86740-7 ####[facility] LABCLIA [id number] [address] [address] [place] AMERICACreatinine [Mass/Vol] 1.60 mg/dLHigh0.73-1.22[facility] on above:Order Comment: Specimen Type: BLOOD SPECIMENOrdering Facility: [facility] Address:[address] [place], [place] [address]Performed By: #### 80092-6 ####[facility] LABIA [id number] [place] [address] [place] AMERICACreatinine and Glomerular filtration rate.predicted panel (S/P/Bld)45 mL/min/1.73m???Low>=60[facility] on above:Order Comment: Specimen Type: BLOOD SPECIMENOrdering Facility: [facility] Address:[address] [place], [place] [address]Result Comment: Estimated Glomerular Filtration Rate (eGFR) is calculated using the 2020 CKD-EPI creatinine equation. This equation utilizes serum creatinine, sex, and age as parameters. The creatinine assay has traceable calibration to isotope dilution-mass spectrometry. Refer to KDIGO guidelines for clinical interpretation. In patients with unstable renal function, e.g. those with acute kidney injury, the eGFR may not accurately reflect actual GFR.Performed By: #### 42418-1 ####[facility] LABIA [id number] [place] [address] [place] AMERICAGlucose [Mass/Vol]119 mg/sMPewm92-23PvvmjmmjpPremier Health Miami [facility] Hospital on above:Order Comment: Specimen Type: BLOOD SPECIMENOrdering Facility: [facility] Address:[address] [place], [place] [address]Result Comment: The [place] [employer] (ADA) provides [...] unequivocal hyperglycemia, results should be confirmed by repeattesting. In a patient with classic symptoms of hyperglycemia or hyperglycemic crisis, random plasmaglucose results greater than or equal to 200 mg/dL meet the criteria for diagnosis of diabetes.Reference: Standards of Medical Care in Diabetes 2016, [place] [employer]. Diabetes Care. 2016.39(Suppl 1).Performed By: #### 23154-9 ####[facility] LABCLIA [id number] [place] [id number] [place] AMERICAPotassium [Moles/Vol]4.3 mmol/LNormal3.7-5.1CUniversity Hospitals [facility] Comment on above:Order Comment: Specimen Type: BLOOD SPECIMENOrdering Facility: [facility] Address:[address] [place] [address] Performed By: #### 89556-7 ####[facility] LABCLIA [id number] [place] [address] [place] Sodium [Moles/Vol]136 mmol/YIsiqry116-995NkfiuantvTrihealth Bethesda Butler HospitalComment on above:Order Comment: Specimen Type: BLOOD SPECIMENOrdering Facility: [facility] Address:[address] [place], [place] [address]Performed By: #### 29591-2 ####[facility] LABIA [id number] [place] [address] [place] AMERICAUrea nitrogen [Mass/Vol]45 mg/dLHigh9-24[facility] Butler HospitalComment on above:Order Comment: Specimen Type: BLOOD SPECIMENOrdering Facility: [facility] Address:[address] [place], [place] [address]Performed By: #### 10964- 2 ####[facility] LABIA [id number] [place] [address] [place] AMERICAPVR LEG ROCIO VAS LABon 12-16-2024 PVR LEG ROCIO VAS LABNormalCUniversity Hospitals Parma Medical CenterUS VENOUS INCOMPETENCY ROCIO VAS LABon 31-77-2199YA VENOUS INCOMPETENCY ROCIO VAS LABNormalCUniversity Hospitals Parma Medical CenterCNOVon 66-46-4118MZWRFmhblqMtkfongyd Clinic ClevelandCNPNon 11-23-2024 CNPNNormalTrihealth Bethesda Butler HospitalUS ABD RIGHT UPPER QUADRANTon 26-23-8666CB ABD RIGHT UPPER QUADRANT* * *Final Report* * * DATE OF [...] infiltrative diseases or in the post-prandial state. Rebar Fabricator: ALONSO Transcribe Date/Time: Nov 26 2024 7:29A Dictated by : KRISTINA SALINAS MD This examination was interpreted and the report reviewed and electronically signed by: KRISTINA SALINAS MD on Nov 26 2024 7:35AM EST [id number] State Harding HospitalUS ELASTOGRAPHY LIVERon 21-31-3996HX ELASTOGRAPHY LIVER* * *Final Report* * * DATE OF EXAM: Nov 23 2024 3:05PM U 1199 - US ELASTOGRAPHY LIVER / PROCEDURE [...] infiltrative diseases or in the post-prandial state. Rebar Fabricator: ALONSO Transcribe Date/Time: Nov 26 2024 7:29A Dictated by : KRISTINA SALINAS MD This examination was interpreted and the report reviewed and electronically signed by: KRISTINA SALINAS MD on Nov 26 2024 7:35AM EST [id number] State Harding HospitalXR CHEST 2V FRONTAL/LATon 11-23-2024 XR CHEST 2V FRONTAL/LATNoSelect Medical TriHealth Rehabilitation HospitalXR Chest PA and Lateralon 15-40-3649ROVFLWCDFB: See result. Rebar Fabricator: ALONSO Transcribe Date/Time: Nov 23 2024 1:39P Dictated by : CRISTOBAL ROACH MD This examination was interpreted and the report reviewed and electronically signed by: CRISTOBAL ROACH MD on Nov 23 2024 1:42PM EST DIVISION OF RADIOLOGY* * *Final Report* * * DATE OF [...] of the left seventh rib. DIVISION OF RADIOLOGYProvider, [facility] [place] - 11/23/[facility]24 * * *Final Report* * [...] left seventh rib. IMPRESSION IMPRESSION: See result. Rebar Fabricator: ALONSO Transcribe Date/Time: Nov 23 2024 1:39P Dictated by : CRISTOBAL ROACH MD This examination was interpreted and the report reviewed and electronically signed by: CRISTOBAL ROACH MD on Nov 23 2024 1:42PM EST [facility] CenterRadiology Study observation (narrative)[facility] CenterXR Chest PA and LateralOrdered By: Ccf Provider on 66-71-2914Kyohkaewh ClinicCNOVon 25-10-5867TIDMJpvgkeMgmcxfuej Clinic ClevelandCNOVon 29-97-8458JHSZCcvtee [facility] Butler HospitalOPERATIVE NOon 22-00-4911TVEYHAKNO NONormalTrihealth Bethesda Butler HospitalUS Chest limitedon 09-92-7546Ojmshfglm ClinicRadiology Study observation (narrative)[facility] CenterXR CHEST 1V FRONTAL PORTon 82-48-4901UO CHEST 1V FRONTAL PORTNormalCUniversity Hospitals Parma Medical CenterXR CHEST 2V FRONTAL/LATon 37-22-1652RT CHEST 2V FRONTAL/LATNormalCUniversity Hospitals Parma Medical CenterXR Chest PA and Lateralon 58-23-4670HAIJXDFSIG: See result Rebar Fabricator: ALONSO Transcribe Date/Time: Nov 19 2024 3:58P Dictated by : KYLER NICHOLAS MD This examination was interpreted and the report reviewed and electronically signed by: KYLER NICHOLAS MD on Nov 19 2024 4:01PM [facility] DIVISION OF RADIOLOGY* * *Final Report* * * DATE OF [...] changes of the left rib/ribs. DIVISION OF RADIOLOGYProvider, [facility] [place] - 11/19/2024 * * *Final Report* * [...] the left rib/ribs. IMPRESSION IMPRESSION: See result Rebar Fabricator: PSCB Transcribe Date/Time: Nov 19 2024 3:58P Dictated by : KYLER NICHOLAS MD This examination was interpreted and the report reviewed and electronically signed by: KYLER NICHOLAS MD on Nov 19 2024 4:01PM EST [facility] CenterRadiology Study observation (narrative)[facility] CenterXR Chest PA and LateralOrdered By: Ccf Provider on 10-49-3523Vplbefbrd ClinicCNPNon 41-98-1113DFWCWkvtsePzhlwwury Clinic ClevelandCOPPER BLOODon 11-05-6066Ukrbfq [Mass/Vol]159 ug/hHDaty44-300DswkdqsoqTrihealth Bethesda Butler HospitalComascension borg[facility] on above:Order Comment: Specimen Type: BLOOD SPECIMENOrdering Facility: [facility] Address:[address] [place], [place] [address]Result Comment: This test was developed, and its performance characteristics determined by the [facility] Department of Pathology and Laboratory Medicine. It has not been cleared or approved bythe FDA. The [facility] Department of Pathology and Laboratory Medicine is regulated under CLIA as qualified to perform high- complexity testing. This test is used for clinical purposes. It should not be regarded as investigational or for research.Performed By: #### COPPER ####[facility] LABCLIA [id number] [place] [address] [place] AMERICAComprehensive metabolic 2000 panelon 48-65-5748Kjzslht [Mass/Vol]4.1 g/dLNormal3.9-4.9CUniversity Hospitals Parma Medical CenterComment on above:Order Comment: Specimen Type: BLOOD SPECIMENOrdering Facility: [facility] Address:[address] [place], [place] [address]Performed By: #### 54702-5, 56076-7 ####[facility] LABIA [id number] [place] [id number] [place] AMERICAALP [Catalytic activity/Vol]112 U/CVkgfnn46-881UmuuehdbmTrihealth Bethesda Butler HospitalComment on above:Order Comment: Specimen Type: BLOOD SPECIMENOrdering Facility: [facility] Address:[address] [place], [place] [address]Performed By: #### 08891-9, 53415-5 ####[facility] LABCLIA [id number] [place] [id number] [place] AMERICAALT [Catalytic activity/Vol]34 U/ZOnocrq30-90AlhqwdewrTrihealth Bethesda Butler Hospital Comment on above:Order Comment: Specimen Type: BLOOD SPECIMENOrdering Facility: [facility] Address:[address] [place] [address] Performed By: #### 94631-8, 95328-7 ####[facility] LABCLIA [id number] [place] [address] [place] Anion gap [Moles/Vol]12 mmol/LNormal8-15[facility] on above:Order Comment: Specimen Type: BLOOD SPECIMENOrdering Facility: [facility] Address:[address] [place], [place] [address]Performed By: #### 41172-9, ####[facility] LABCLIA [id number] [place] [address] [place] AMERICAAST [Catalytic activity/Vol]47 U/CEaoh17-31NfvbgsxjdPremier Health Miami Valley Hospital on above:Order Comment: Specimen Type: BLOOD SPECIMENOrdering Facility: [facility] Address:[address] [place], [place] [address]Performed By: #### 30693- 8, ####[facility] LABCLIA [id number] [facility] HOSPITALNiecy [facility] [place] [address] [place] AMERICABilirubin [Mass/Vol]0.8 mg/dLNormal0.2-1.3CTriHealth Bethesda North Hospital on above:Order Comment: Specimen Type: BLOOD SPECIMENOrdering Facility: [facility] Address:[address] [place], [place] [address]Performed By: #### 04574-4, ####[facility] LABCLIA [id number] [facility] [place] [address] [place] AMERICACalcium [Mass/Vol]9.5 mg/dLNormal 8.5-10.2CTriHealth Bethesda North Hospital on above:Order Comment: Specimen Type: BLOOD SPECIMENOrdering Facility: [facility] Address:[address] [place], [place] [address]Performed By: #### 89352-2, ####[facility] LABCLIA [id number] [facility]OS[facility]ITALK [place] [id number] [place] AMERICAChloride [Moles/Vol]97 mmol/NRxu26-653Mkdyuadpr Clinic ClevelandComment on above:Order Comment: Specimen Type: BLOOD SPECIMENOrdering Facility: [facility] Address:[address] [place], [place] [address]Performed By: #### 28540-0, ####[facility] LABCLIA [id number] [place] [id number] [place] AMERICACO2 [Moles/Vol]30 mmol/AWrfdxp34-12CpntcxugeTrihealth Bethesda Butler Hospital Comment on above:Order Comment: Specimen Type: BLOOD SPECIMENOrdering Facility: [facility] Address:[address] [place] [address] Performed By: #### 24332-5, ####[facility] LABIA [id number] [place] [address] [place] Creatinine [Mass/Vol]1.38 mg/dLHigh0.73-1.22[facility] Butler HospitalComment on above:Order Comment: Specimen Type: BLOOD SPECIMENOrdering Facility: [facility] Address:[address] [place], [place] [address]Performed By: #### 72990-2, ####[facility] LABIA [id number] [place] [address] [place] [facility] HOSPITALCreatinine and Glomerular filtration rate.predicted panel (S/P/Bld)54 mL/min/1.73m???Low>=60 [facility]hesda Butler HospitalComment on above:Order Comment: Specimen Type: BLOOD SPECIMENOrdering Facility: [facility] Address:[address] [place], [place] [address]Result Comment: Estimated Glomerular Filtration Rate (eGFR) is calculated using the 2020 CKD-EPI creatinine equation. This equation utilizes serum creatinine, sex, and age as parameters. The creatinine assay has traceable calibration to isotope dilution-mass spectrometry. Refer to KDIGO guidelines for clinical interpretation. In patients with unstable renal function, e.g. those with acute kidney injury, the eGFR may not accurately reflect actual GFR.Performed By: #### 02975-3, ####[facility] LABCLIA [id number] [place] [id number] [place] AMERICAGlucose [Mass/Vol]104 mg/oDJzlr34-25UbrsaevhpTrihealth Bethesda Butler Hospital Comment on above:Order Comment: Specimen Type: BLOOD SPECIMENOrdering Facility: [facility] Address:[address] [place], [place] [address]Result Comment: The [place] Diabetes Association (ADA) provides guidance for cutoff values for fasting glucose and random glucose. The ADA defines fasting as no caloric intake for at least 8 hours. Fasting plasma glucose results between 100 to 125 mg/dL indicate increased risk for diabetes (prediabetes).Fasting plasma glucose results greater than or equal to 126 mg/dL meet the criteria for diagno sis of diabetes. In the absence of unequivocal hyperglycemia, results should be confirmed by repeattesting. In a patient with classic symptoms of hyperglycemia or hyperglycemic crisis, random plasmaglucose results greater than or equal to 200 mg/dL meet the criteria for diagnosis of diabetes.Reference: Standards of Medical Care in Diabetes 2016, [place] [employer]. Diabetes Care. 2016.39(Suppl 1).Performed By: #### 02501-4, ####[facility] LABIA [id number] [place] [address] [place] AMERICAPotassium [Moles/Vol]3.8 mmol/LNormal3.7-5.1CUniversity Hospitals Parma Medical CenterComment on above:Order Comment: Specimen Type: BLOOD SPECIMENOrdering Facility: [facility] Address:[address] [place], [place] [address]Performed By: #### 09723-6, ####[facility] LABIA [id number] [place] [id number] [place] AMERICAProtein [Mass/Vol]7.3 g/dLNormal6.3-8.0[facility] on above:Order Comment: Specimen Type: BLOOD SPECIMENOrdering Facility: [facility] Address:[address] [place], [place] [address] Performed By: #### 69413-4, ####[facility] LABCLIA [id number] [place] [address] [place] Sodium [Moles/Vol]139 mmol/DCikofp078-505YugejdbmfPremier Health Miami [facility] Hospital on above:Order Comment: Specimen Type: BLOOD SPECIMENOrdering Facility: [facility] Address:[address] [place], [place] [address]Performed By: #### 27594-9, 39489-8 ####[facility] LABIA [id number] [place] [address] [place] AMERICAUrea nitrogen [Mass/Vol]55 mg/dLHigh9-24[facility] on above:Order Comment: Specimen Type: BLOOD SPECIMENOrdering Facility: [facility] Address:[address] [place], [place] [address]Performed By: #### 19995- 8, 57458-3 ####[facility] LABIA [id number] [address] STATES OF AMERICAHAV IgM Ser Qlon 98-13-9888WTU IgM Ql (S)NegativeNormalNegativePremier Health Miami [facility] Hospital on above:Order Comment: Specimen Type: BLOOD SPECIMENOrdering Facility: [facility] Address:[address] [place], [place] [address]Result Comment: No evidence of recent infection with Hepatitis A virus.Performed By: #### 87805-1, 5195-3, 73043-1 ####[facility] LABIA [id number] [address] [place] HBV core IgM Ser Qlon 65-46-5457BRC core IgM Ql (S)NegativeNormalNegative [facility] on above:Order Comment: Specimen Type: BLOOD SPECIMENOrdering Facility: [facility] Address:[address] [place], [place] [address]Result Comment: No evidence of recent infection with Hepatitis B virus. Should recent infection be suspected, repeat testing may be considered 3-4 weeks after this draw.Performed By: #### 79837-1, 5195-3, 23673-1 ####[facility] LABCLIA [id number], [place] [address] [place] AMERICAHBV surface Ag Ser Qlon 05-43-9070RUL surface Ag Ql (S)NegativeNormalNegativeTrihealth Bethesda [facility] Hospital Comment on above:Order Comment: Specimen Type: BLOOD SPECIMENOrdering Facility: [facility] Address:[address] [place] [address] Performed By: #### 39274-7, 5195-3, 78408-5 ####[facility] LABIA [id number][place] [address] [place] OF AMERICAHCV Ab Ser Qlon 26-26-6243NTA Ab Ql (S)NegativeNormalNegativeTrihealth Bethesda Butler HospitalComment on above:Order Comment: Specimen Type: BLOOD SPECIMENOrdering Facility: [facility] Address:[address] [place], [place] [address]Result Comment: The result suggests no evidence of infection with Hepatitis C virus. Should recent infection be suspected, repeat testing may be considered 4-6 weeks after this draw.Performed By: #### 32496-4 ####[facility]IA [id number] [address] STATES OF AMERICAHCV RNA BRYN+probe Qnon 11-17-2024 HCV RNA BRYN+probe QlNot detectedNormalNot detectedTrihealth Bethesda Butler Hospital Comment on above:Order Comment: Specimen Type: BLOOD SPECIMENOrdering Facility: [facility] Address:[address] [place] [address] Performed By: #### 79151-1 ####[facility] [id number] [place] [address] [place] Iron and Iron binding capacity panelon 91-47-8179Lpjl [Mass/Vol]72 ug/dLNormal 41-186Tri[facility] Bethesda Butler HospitalComment on above:Order Comment: Specimen Type: BLOOD SPECIMENOrdering Facility: [facility] Address:[address] [place], [place] [address]Performed By: #### 26485-4 ####[facility] [id number] [place] [id number] [place] OF [facility] HOSPITALIron binding capacity [Mass/Vol]321 ug/kAGciyad202-841LqpuxrmgmTrihealth Bethesda Butler HospitalComascension borg[facility]gan hospital on above:Order Comment: Specimen Type: BLOOD SPECIMENOrdering Facility: [facility] Address:[address] [place], [place] [address]Performed By: #### 40369-0 ####[facility] LAB[facility] [id number] [address] STATES [facility]ICAL CENTERIron/TIBC [Molar ratio]22.4 %Xntwyo76.0-57.0[facility] Comment on above:Order Comment: Specimen Type: BLOOD SPECIMENOrdering Facility: [facility] Address:[address] [place] [address] Performed By: #### 79065-5 ####[facility]USIA [id number] [place] [id number] [place] Magnesium SerPl-mCncon 81-08-1229Xgcuktife [Mass/Vol]2.3 mg/dLNormal1.7-2.3 [facility] HospitalComascension borg[facility] allegan hospital on above:Order Comment: Specimen Type: BLOOD SPECIMENOrdering Facility: [facility] Address:[address] [place], [place] [address]Performed By: #### 40490-0, 97511-3 ####[facility]USIA [id number] [place] [id number] [place] AMERICACB W Auto Differential panel (Bld)on 61-78-1187Fyyktgffy (Bld) [#/Vol]10*3/uLNormal<0.11CUniversity Hospitals Parma Medical CenterComment on above:Order Comment: Specimen Type: BLOOD SPECIMENOrdering Facility: [facility] Address:[address] [place], [place] [address]Performed By: #### 27275- 8 ####[facility] LABCLIA [id number] [address], [place] [address] [place] AMERICABasophils/100 WBC (Bld)0.2 % NormalPremier Health Miami Valley Hospital on above:Order Comment: Specimen Type: BLOOD SPECIMENOrdering Facility: [facility] Address:[address] [place], [place] [address]Performed By: #### 10294-7 ####[facility] LABCLIA [id number] [address], [place] [address] [place] OF AMERICADifferential cell count method Nom (Bld)AutoNormalCTriHealth Bethesda North Hospital on above:Order Comment: Specimen Type: BLOOD SPECIMENOrdering Facility: [facility] Address:[address] [place], [place] [address]Performed By: #### 80805-9 ####[facility] [id number] [address], [place] [address] [place] AMERICAEosinophils (Bld) [#/Vol]10*3/uLNormal<0.46[facility] Comment on above:Order Comment: Specimen Type: BLOOD SPECIMENOrdering Facility: [facility] Address:[address] [place] [address] Performed By: #### 64173-0 ####[facility] [id number] [place] [address] [place] Eosinophils/100 WBC (Bld)0.0 %NormalPremier Health Miami Valley Hospital on above: Order Comment: Specimen Type: BLOOD SPECIMENOrdering Facility: [facility] Address:[address] [place], [place] [address]Performed By: #### 67788- 8 ####[facility] [id number] [place] [address] [place] AMERICAErythrocyte distribution width (RBC) [Ratio]16.6 %High11.5-15.0[facility] on above:Order Comment: Specimen Type: BLOOD SPECIMENOrdering Facility: [facility] Address:[address] [place], [place] [address]Performed By: #### 45578- 8 ####[facility] [id number] [place] [address] [place] AMERICAHematocrit (Bld) [Volume fraction]37.1 %Low39.0-51.0[facility] on above:Order Comment: Specimen Type: BLOOD SPECIMENOrdering Facility: [facility] Address:[address] [place], [place] [address]Performed By: #### 21749- 8 ####[facility]AMPUSIA [id number] [place] [address] [place] AMERICAHemoglobin (Bld) [Mass/Vol]12.3 g/dLLow13.0-17.0[facility] on above:Order Comment: Specimen Type: BLOOD SPECIMENOrdering Facility: [facility] Address:[address] [place], [place] [address]Performed By: #### 82484-1 ####[facility]AMPUSIA [id number] [place] [address] [place] AMERICAImmature granulocytes (Bld) [#/Vol]0.16 10*3/uLHigh<0.10[facility] on above:Order Comment: Specimen Type: BLOOD SPECIMENOrdering Facility: [facility] Address:[address] [place], [place] [address]Performed By: #### 33335- 8 ####[facility] [id number] [place] [address] [place] AMERICAImmature granulocytes/100 WBC (Bld)1.8 %NormalPremier Health Miami Valley Hospital on above:Order Comment: Specimen Type: BLOOD SPECIMENOrdering Facility: [facility] Address:[address] [place], [place] [address]Performed By: #### 26948-0 ####[facility] [id number] [place] [address] [place] AMERICALymphocytes (Bld) [#/Vol]0.91 10*3/uLLow1.00-4.00[facility] on above:Order Comment: Specimen Type: BLOOD SPECIMENOrdering Facility: [facility] Address:[address] [place], [place] [address]Performed By: #### 48501-0 ####[facility] [id number] [place] [address] [place] AMERICALymphocytes/100 WBC (Bld)10.4 % NormalPremier Health Miami Valley Hospital on above:Order Comment: Specimen Type: BLOOD SPECIMENOrdering Facility: [facility] Address:[address] [place], [place] [address]Performed By: #### 90595-0 ####[facility] [id number] [place] [address] [place] AMERICAMCH (RBC) [Entitic mass]32.2 nhFojuao11.0-34.0[facility] on above:Order Comment: Specimen Type: BLOOD SPECIMENOrdering Facility: [facility] Address:[address] [place], [place] [address]Performed By: #### 69772-1 ####[facility] [id number] [place] [id number] [place] MCHC (RBC) [Mass/Vol]33.2 g/bSExrjki53.5-36.0[facility] on above:Order Comment: Specimen Type: BLOOD SPECIMENOrdering Facility: [facility] Address:[address] [place] [address] Performed By: #### 22845-3 ####[facility] [id number] [address] [place], [place] [address] [place] MCV (RBC) [Entitic vol]97.1 bZTrgztp14.0-100.0[facility] on above:Order Comment: Specimen Type: BLOOD SPECIMENOrdering Facility: [facility] Address:[address] [place] [address] Performed By: #### 22821-5 ####[facility] LABCLIA [id number] [place] [address] [place] Monocytes (Bld) [#/Vol]0.67 10*3/uLNormal<0.87[facility] on above:Order Comment: Specimen Type: BLOOD SPECIMENOrdering Facility: [facility] Address:[address] [place] [address] Performed By: #### 45951-2 ####[facility] LABCLIA [id number] [place] [address] [place] Monocytes/100 WBC (Bld)7.6 %NormalPremier Health Miami Valley Hospital on above: Order Comment: Specimen Type: BLOOD SPECIMENOrdering Facility: [facility] Address:[address] [place], [place] [address]Performed By: #### 36777- 8 ####[facility] LABCLIA [id number] [place] [address] [place] AMERICANeutrophils (Bld) [#/Vol]7.03 10*3/uLNormal1.45-7.50[facility] on above:Order Comment: Specimen Type: BLOOD SPECIMENOrdering Facility: [facility] Address:[address] [place], [place] [address]Performed By: #### 29152-2 ####[facility] [id number] [place] [address] [place] AMERICANeutrophils/100 WBC (Bld)80.0 % NormalPremier Health Miami Valley Hospital on above:Order Comment: Specimen Type: BLOOD SPECIMENOrdering Facility: [facility] Address:[address] [place], [place] [address]Performed By: #### 46584-3 ####[facility] [id number] [place] [address] [place] AMERICANucleated RBC (Bld) [#/Vol]10*3/uLNormal<0.01[facility] on above:Order Comment: Specimen Type: BLOOD SPECIMENOrdering Facility: [facility] Address:[address] [place], [place] [address]Performed By: #### 50710-7 ####[facility] [id number] [place] [address] [place] Nucleated RBC/100 WBC (Bld) [Ratio]0.0 /100 WBCNormalCUniversity Hospitals Parma Medical Center Comment on above:Order Comment: Specimen Type: BLOOD SPECIMENOrdering Facility: [facility] Address:[address] [place] [address] Performed By: #### 19103-2 ####[facility] [id number] [place] [address] [place] Platelet mean volume (Bld) [Entitic vol]10.0 fLNormal9.0-12.7CTriHealth Bethesda North Hospital on above:Order Comment: Specimen Type: BLOOD SPECIMENOrdering Facility: [facility] Address:[address] [place], [place] [address]Performed By: #### 54060-4 ####[facility] [id number] [place] [address] [place] Platelets (Bld) [#/Vol]189 10*3/iRDcytda410-388NavalawoiPremier Health Miami Valley Hospital on above:Order Comment: Specimen Type: BLOOD SPECIMENOrdering Facility: [facility] Address:[address] [place] [address] Performed By: #### 72633-8 ####[facility] [id number] [place] [address] [place] RBC (Bld) [#/Vol]3.82 10*6/uLLow4.20-6.00[facility] on above:Order Comment: Specimen Type: BLOOD SPECIMENOrdering Facility: [facility] Address:[address] [place], [place] [address]Performed By: #### 17302-5 ####[facility] LABCLIA [id number] [place] [address] [place] AMERICAWBC (Bld) [#/Vol]8.79 10*3/uLNormal3.70-11.00[facility] on above:Order Comment: Specimen Type: BLOOD SPECIMENOrdering Facility: [facility] Address:[address] [place], [place] [address]Performed By: #### 43833-3 ####[facility] LABCLIA [id number] [place] [address] [place] AMERICAComprehensive metabolic 2000 panelon 07-01-8334Pkrhoho [Mass/Vol]3.8 g/dLLow3.9-4.9CUniversity Hospitals Parma Medical Center Comment on above:Order Comment: Specimen Type: BLOOD SPECIMENOrdering Facility: [facility] Address:[address] [place] [address] Performed By: #### 81396-2, 31580-8, [id number], 75824-5 ####[facility] LABCLIA [id number] [place] [address] [place] [facility] HOSPITALALP [Catalytic activity/Vol]108 U/FQjluqf14-225BxfseviaqPremier Health [facility] Hospital on above:Order Comment: Specimen Type: BLOOD SPECIMENOrdering Facility: [facility] Address:[address] [place], [place] [address]Performed By: #### 03066-7, 39304-3, [id number], 46386-1 ####[facility] LABCLIA [id number] [address], [place] [facility] [place] AMERICAALT [Catalytic activity/Vol]40 U/LWubsbi20-64HjclopocuPremier Health Miami Valley Hospital on above:Order Comment: Specimen Type: BLOOD SPECIMENOrdering Facility: [facility] Address:[address] [place], [place] [address]Performed By: #### 83907-7, 84557-8, [id number], 86148-3 ####[facility] LABCLIA [id number] [place] [address] [place] AMERICAAnion gap [Moles/Vol]15 mmol/L Normal8-15[facility] on above:Order Comment: Specimen Type: BLOOD SPECIMENOrdering Facility: [facility] Address:[address] [place], [place] [address]Performed By: #### 69087-6, 90657-5, [id number], 25287-7 ####[facility] LABCLIA [id number] [place] [address] [place] AMERICAAST [Catalytic activity/Vol]46 U/DMpcc19-15CxnnptybqPremier Health [facility] Hospital on above:Order Comment: Specimen Type: BLOOD SPECIMENOrdering Facility: [facility] Address:[address] [place], [place] [address]Performed By: #### 75793- 9, 68550-8, [id number], 45338-9 ####[facility] LABCLIA [id number] [place] [id number] [place] Bilirubin [Mass/Vol]0.7 mg/dLNormal0.2-1.3CTriHealth Bethesda North Hospital on above:Order Comment: Specimen Type: BLOOD SPECIMENOrdering Facility: [facility] Address:[address] [place], [place] [address]Performed By: #### 04590-6, 10950-8, [id number], 51529-5 ####[facility] LABCLIA [id number] [place] [id number] [place] Calcium [Mass/Vol]8.8 mg/dLNormal8.5-10.2CTriHealth Bethesda North Hospital on above:Order Comment: Specimen Type: BLOOD SPECIMENOrdering Facility: [facility] Address:[address] [place], [place] [address]Performed By: #### 91530-6, 99814-6, [id number], 91907-9 ####[facility] LABCLIA [id number] [place] [address] [place] Chloride [Moles/Vol]103 mmol/XLteznh63-589EvoihthuwPremier Health Miami Valley Hospital on above:Order Comment: Specimen Type: BLOOD SPECIMENOrdering Facility: [facility] Address:[address] [place], [place] [address]Performed By: #### 51470-7, 70433-9, [id number], 78436-7 ####[facility] LABCLIA [id number] [place] [address] [place] CO2 [Moles/Vol]23 mmol/JJwzmso08-00UvrmsepqvPremier Health Miami [facility] Hospital on above: Order Comment: Specimen Type: BLOOD SPECIMENOrdering Facility: [facility] Address:[address] [place], [place] [address]Performed By: #### 69210- 9, 73558-5, [id number], 42939-3 ####[facility] LABCLIA [id number] [place] [address] [place] Creatinine [Mass/Vol]1.12 mg/dLNormal0.73-1.22[facility] on above:Order Comment: Specimen Type: BLOOD SPECIMENOrdering Facility: [facility] Address:[address] [place] [address] Performed By: #### 32371-5, 74026-0, [id number], 40688-9 ####[facility] LABCLIA [id number] [place] [id number] [place] AMERICACreatinine and Glomerular filtration rate.predicted panel (S/P/Bld)69 mL/min/1.73m???Normal>=60[facility] on above: Order Comment: Specimen Type: BLOOD SPECIMENOrdering Facility: [facility] Address:[address] [place] [id number] Comment: Estimated Glomerular Filtration Rate (eGFR) is calculated using the 2020 CKD-EPI cre atinine equation. This equation utilizes serum creatinine, sex, and age as parameters. The creatinine assay has traceable calibration to isotope dilution- mass spectrometry. Refer to KDIGO guidelines for clinical interpretation. In patients with unstable renal function, e.g. those with acute kidney injury, the eGFR may not accurately reflect actual GFR.Performed By: #### 24811-6, 40443-1, [id number], 98479-4 ####[facility] LABCLIA [id number] [address] [address] [place] AMERICAGlucose [Mass/Vol]115 mg/jADcqm01-03HmdjhbpjtPremier Health [facility] Hospital on above:Order Comment: Specimen Type: BLOOD SPECIMENOrdering Facility: [facility] Address:[address] [place], [place] [address]Result Comment: The [place] [employer] (ADA) provides [...] symptoms of hyperglycemia or hyperglycemic crisis, random plasmaglucose results greater than or equal to 200 mg/dL meet the criteria for diagnosis of diabetes.Reference: Standards of Medical Care in Diabetes 2016, [place] [employer]. Diabetes Care. 2016.39(Suppl 1). Performed By: #### 06024-6, 26377-5, OET0773, 07143-3 ####[facility] LABCLIA [id number] [address] [address] [place] AMERICAPotassium [Moles/Vol]3.3 mmol/LLow3.7-5.1CTriHealth Bethesda North Hospital on above:Order Comment: Specimen Type: BLOOD SPECIMENOrdering Facility: [facility] Address:[address] [place], [place] [address]Performed By: #### 19186-8, 11882-9, [id number], 48852-1 ####[facility] LABCLIA [id number] [place] [address] [place] AMERICAProtein [Mass/Vol]6.7 g/dLNormal6.3-8.0[facility] on above:Order Comment: Specimen Type: BLOOD SPECIMENOrdering Facility: [facility] Address:[address] [place], [place] [address]Performed By: #### 55868-9, 99647-8, [id number], 87292-7 ####[facility] LABCLIA [id number] [address] STATES OF AMERICASodium [Moles/Vol]141 mmol/XQnmqpz856-409EupgowneyPremier Health Miami Valley Hospital on above:Order Comment: Specimen Type: BLOOD SPECIMENOrdering Facility: [facility] Address:[address] [place], [place] [address]Performed By: #### 45642-0, 60298-1, [id number], 61801-5 ####[facility] LABCLIA [id number] [place] [id number] [place] AMERICAUrea nitrogen [Mass/Vol]37 mg/dL High9-24[facility] on above:Order Comment: Specimen Type: BLOOD SPECIMENOrdering Facility: [facility] Address:[address] [place], [place] [address]Performed By: #### 44181-6, 61886-9, [id number], 92223-4 ####[facility] LABCLIA [id number] [place] [id number] [place] AMERICAECG COMPLETEon 23-27-0506LLQ COMPLETENormalCUniversity Hospitals Parma Medical CenterED NOTEon 33-63-5701LE NOTEHNO ID: [id number] Author: EDWIN MANSFIELD RN Service: ? Author Type: Registered Nurse Type: ED Notes Filed: 11/12/2024 19:04 Note Text: Pt. D/c as ordered Pt .verbalized understanding of all d/c instructions. No further needs noted at this time.[facility] NOTE NormalKettering Health [facility] PROGRESS NOTE (PROVIDER)on 89-41-5303EF PROGRESS NOTE (PROVIDER)[facility] PROV NOTEon 33-01-4723QP PROV NOTENormalCHolzer Health System Triage Noteon 51-01-8336CI Triage NoteNoSelect Medical TriHealth Rehabilitation HospitalHIGH SENSITIVITY TROPONIN T (INITIAL)on 72-50-8739Qycsmsnd T.cardiac High sensitivity method [Mass/Vol]18 ng/LHigh<12[facility] on above:Order Comment: Specimen Type: BLOOD SPECIMENOrdering Facility: [facility] Address:[address] [place], [place] [address]Performed By: #### 92361- 9, 12962-4, [id number], 69575-9 ####[facility] LABCLIA [id number] [address] SENSITIVITY TROPONIN T (SECOND)on 06-41-1091Vtarhdzg T.cardiac High sensitivity method [Mass/Vol]17 ng/LHigh<12[facility] on above:Order Comment: Specimen Type: BLOOD SPECIMENOrdering Facility: [facility] Address:[address] [place], [place] [address]Performed By: #### [id number] ####[facility] LABCLIA [id number] [address] SENSITIVITY TROPONIN T (THIRD) 3 HRS AFTER INITIALon 14-60-5504Oynvcufp T.cardiac High sensitivity method [Mass/Vol]16 ng/LHigh<12[facility] on above:Order Comment: Specimen Type: BLOOD SPECIMENOrdering Facility: [facility] Address:[address] [place], [place] [address]Performed By: #### [id number] ####[facility] LABCLIA [id number] [place] [address] [place] AMERICAMagnesium SerPl-ncon 45-53-6338Dgpcvgefn [Mass/Vol]2.1 mg/dLNormal1.7-2.3CUniversity Hospitals Parma Medical Center Comment on above:Order Comment: Specimen Type: BLOOD SPECIMENOrdering Facility: [facility] Address:[address] [place] [address] Performed By: #### 87243-6, 35264-2, [id number], 07564-5 ####[facility] LABCLIA [id number] [place] [address] [place] AMERICANT-proBNP SerPl-mCncon 35-52-0191Jhkkgorbibf peptide.B prohormone N-Terminal [Mass/Vol]465 pg/mLHigh<125[facility] Comment on above:Order Comment: Specimen Type: BLOOD SPECIMENOrdering Facility: [facility] Address:[address] [place] [address] Performed By: #### 35067-0, 79115-1, [id number], 54291-7 ####[facility] LABCLIA [id number] [place] [address] [place] AMERICAUS DVT LOWER BILon 78-18-8472IU DVT LOWER BILNormalCUniversity Hospitals Parma Medical CenterXR CHEST 2V FRONTAL/LATon 88-96-9868AC CHEST 2V FRONTAL/LAT NormalTrihealth Bethesda Butler HospitalBasic metabolic 2000 panelon 67-07-0987Sdrby gap [Moles/Vol]13 mmol/LNormal8-15[facility] Butler HospitalComment on above:Order Comment: Specimen Type: BLOOD SPECIMENOrdering Facility: [facility] Address:[address] [place], [place] [address]Performed By: #### 47518- 9, 60987-1 ####[facility] LABCLIA [id number] [place], [place] [address]Edfeozu [Mass/Vol]9.0 mg/dLNormal8.5-10.2CTriHealth Bethesda North Hospital on above:Order Comment: Specimen Type: BLOOD SPECIMENOrdering Facility: [facility] Address:[address] [place], [place] [address]Performed By: #### 73130-4, 12305-3 ####[facility] LABCLIA [id number] [place], [place] [address]Homxdyek [Moles/Vol]100 mmol/IAngona87-929LcifwzuzbPremier Health [facility] on above: Order Comment: Specimen Type: BLOOD SPECIMENOrdering Facility: [facility] Address:[address] [place], [place] [address]Performed By: #### 71452- 9, 23897-6 ####[facility] LABCLIA [id number] [place], [place] [address]UW8 [Moles/Vol]25 mmol/JTgxyar11-93GkrqbeyolPremier Health Miami [facility] on above:Order Comment: Specimen Type: BLOOD SPECIMENOrdering Facility: [facility] Address:[address] [place], [place] [address]Performed By: #### 80016-0, 85887-4 ####[facility] LABCLIA [id number] [place], [place] [address]Pxuvcgqoia [Mass/Vol] 1.08 mg/dLNormal0.73-1.22[facility] on above:Order Comment: Specimen Type: BLOOD SPECIMENOrdering Facility: [facility] Address:[address] [place], [place] [address]Performed By: #### 20199- 9, 81209-1 ####[facility] LABCLIA [id number] [place], [place] [address]Kzukemxquy and Glomerular filtration rate.predicted panel (S/P/Bld)72 mL/min/1.73m???Normal>=60[facility] on above:Order Comment: Specimen Type: BLOOD SPECIMENOrdering Facility: [facility] Address:[address] [place] [address]Rlyvyi Comment: Estimated Glomerular Filtration Rate (eGFR) is calculated using the 2020 CKD-EPI creatinine equation. This equation utilizes serum creatinine, sex, and age as parameters. The creatinine assay has traceable calibration to isotope dilution- mass spectrometry. Refer to KDIGO guidelines for clinical interpretation. In patients with unstable renal function, e.g. those with acute kidney injury, the eGFR may not accurately reflect actual GFR.Performed By: #### 70910-7, 17104-5 ####[facility] LABIA [id number] [place], [place] [address]Tjsetel [Mass/Vol]140 mg/oSLoke95-88YdjgzfpdhPremier Health [facility] on above:Order Comment: Specimen Type: BLOOD SPECIMENOrdering Facility: [facility] Address:[address] [place] [address]Ymotft Comment: The [place] Diabetes Association (ADA) provides guidance for cutoff values for fasting glucose and random glucose. The ADA defines fasting as no caloric intake for at least 8 hours. Fasting plasma glucose results between 100 to 125 mg/dL indicate increased risk for diabetes (prediab etes).Fasting plasma glucose results greater than or equal to 126 mg/dL meet the criteria for diagnosis of diabetes. In the absence of unequivocal hyperglycemia, results should be confirmed by repeattesting. In a patient with classic symptoms of hyperglycemia or hyperglycemic crisis, random plasmaglucose results greater than or equal to 200 mg/dL meet the criteria for diagnosis of diabetes.Reference: Standards of Medical Care in Diabetes 2016, [place] [employer] Association. Diabetes Care. 2016.39(Suppl 1).Performed By: #### 32877- 9, 22676-8 ####[facility] LABCLIA [id number] [place], [place] [address]Vupddsdtv [Moles/Vol]4.0 mmol/LNormal3.7-5.1 [facility] on above:Order Comment: Specimen Type: BLOOD SPECIMENOrdering Facility: [facility] Address:[address] [place], [place] [address]Performed By: #### 77410-7, 63162-3 ####[facility] LABCLIA [id number] [place], [place] [address]Jbvvlr [Moles/Vol]138 mmol/IBzzygx600-860DbkgglaxtPremier Health [facility] on above: Order Comment: Specimen Type: BLOOD SPECIMENOrdering Facility: [facility] Address:[address] [place], [place] [address]Performed By: #### 67628- 9, 59437-0 ####[facility] LABCLIA [id number] [place], [place] [address]Xstb nitrogen [Mass/Vol]39 mg/dLHigh9-24[facility] on above:Order Comment: Specimen Type: BLOOD SPECIMENOrdering Facility: [facility] Address:[address] [place], [place] [address]Performed By: #### 83800-2, 08367-5 ####[facility] LABCLIA [id number] [place], [place] [address]DIY panel Auto (Bld)on 77-36-7709Avvtjzmluga distribution width (RBC) [Ratio]16.2 % High11.5-15.0[facility] on above:Order Comment: Specimen Type: BLOOD SPECIMENOrdering Facility: [facility] Address:[address] [place], [place] [address]Performed By: #### 28183-6 ####[facility] LABCLIA [id number] [place] [address] Hematocrit (Bld) [Volume fraction]38.3 %Low39.0-51.0[facility] Comment on above:Order Comment: Specimen Type: BLOOD SPECIMENOrdering Facility: [facility] Address:[address] [place] [address] Performed By: #### 17270-2 ####[facility] LABCLIA [id number] [place], [place] [address]Heiizhtrra (Bld) [Mass/Vol]12.4 g/dLLow13.0-17.0[facility] on above:Order Comment: Specimen Type: BLOOD SPECIMENOrdering Facility: [facility] Address:[address] [place], [place] [address]Performed By: #### 86911-6 ####[facility] LABCLIA [id number] [place], [place] [address]BHI (RBC) [Entitic mass]31.9 ulCdnznh27.0-34.0[facility] on above:Order Comment: Specimen Type: BLOOD SPECIMENOrdering Facility: [facility] Address:[address] [place], [place] [address]Performed By: #### 19945-9 ####[facility] LABIA [id number] [place], [place] [address]XQLN (RBC) [Mass/Vol]32.4 g/aRKjtuos07.5-36.0[facility] on above: Order Comment: Specimen Type: BLOOD SPECIMENOrdering Facility: [facility] Address:[address] [place], [place] [address]Performed By: #### 39814- 2 ####[facility] LABCLIA [id number] [place], [place] [address]SEN (RBC) [Entitic vol]98.5 uXNnunki90.0-100.0[facility] on above:Order Comment: Specimen Type: BLOOD SPECIMENOrdering Facility: [facility] Address:[address] [place], [place] [address]Performed By: #### 49401-0 ####[facility] LABIA [id number] [place], [place] [address]Cgmnxvawy RBC (Bld) [#/Vol]10*3/uLNormal<0.01[facility] on above:Order Comment: Specimen Type: BLOOD SPECIMENOrdering Facility: [facility] Address:[address] [place], [place] [address]Performed By: #### 20771- 2 ####[facility] LABCLIA [id number] [place], [place] [address]Nvxcasrn mean volume (Bld) [Entitic vol]9.8 fLNormal 9.0-12.7CTriHealth Bethesda North [facility] on above:Order Comment: Specimen Type: BLOOD SPECIMENOrdering Facility: [facility] Address:[address] [place], [place] [address]Performed By: #### 84787-5 ####[facility] LABIA [id number] [place], [place] [address]Nlgsahcbl (Bld) [#/Vol]150 10*3/dNMlykbu079-399UzfriqkpoPremier Health [facility] on above: Order Comment: Specimen Type: BLOOD SPECIMENOrdering Facility: [facility] Address:[address] [place], [place] [address]Performed By: #### 72994- 2 ####[facility] LABCLIA [id number] [place], [place] [address]VWW (Bld) [#/Vol]3.89 10*6/uLLow4.20-6.00[facility] on above:Order Comment: Specimen Type: BLOOD SPECIMENOrdering Facility: [facility] Address:[address] [place], [place] [address]Performed By: #### 24731-3 ####[facility] LABIA [id number] [place], [place] [address]VTN (Bld) [#/Vol]8.65 10*3/uL Normal3.70-11.00[facility] on above:Order Comment: Specimen Type: BLOOD SPECIMENOrdering Facility: [facility] Address:[address] [place], [place] [address]Performed By: #### 51194-7 ####[facility] LABCLIA [id number] [place], [place] [address]Kciveqpjc SerPl-mCncon 05-72-9903Yectfzqbw [Mass/Vol]2.4 mg/dLHigh1.7-2.3CUniversity Hospitals Parma Medical CenterComment on above:Order Comment: Specimen Type: BLOOD SPECIMENOrdering Facility: [facility] Address:[facility] [place], [place] [address]Iwwfkfnvk By: #### 41424-4, 34170-3 ####[facility] LABCLIA [id number] [place], [place] [address]GAKVci 96-98-1061DLJLYuwlovzoj (AVXRCT) SAV RAYMUNDO ([id number]) 1950 M Date Time Provider Department 11/04/24 [...] ask any questions. Thank you Xiomara Ly APRN.[employer] 11/07/2024 11:17 PM Signed Reviewed notification. No further action needed at this time. Xiomara Ly APRN.[employer] Allergies As of Date: 11/04/2024 Noted Allergy Reaction TRAMADOL 12/15/2020 1 - Mental Status Change Date Reviewed: 11/04/2024 Reviewed by: Dragan Lopez CT - Fully Assessed Reason for Visit: Radiology CT [1480] Patient Update [1234] Prescriptions as of 11/07/2024 [...] 1 tablet by mouth once daily. - guaifenesin/dextromethorphan (MUCINEX DM ORAL) Take by mouth two times a day. - loratadine (CLARITIN) 10 mg tablet Take 10 mg by mouth once daily. - torsemide (DEMADEX) 100 mg tablet Take 1 tablet by mouth once daily. - calcium kvb-oqs-M2-Zn-microscopist-kian 250 mg-40 mg- 125 unit-3.75mg tab Take [...] 10/15/2024 Encounter Status:Closed by DRAGAN LOPEZ on 11/04/24[facility] ENTEROGRAPHY W IVCONon 12-77-5649IZ ENTEROGRAPHY W IVCON* * *Final Report* * * DATE OF EXAM: Nov 04 2024 3:04PM [facility] 0545 - CT ENTEROGRAPHY W IVCON / [...] WITH RIGHT PLEURAL CATHETER. SMALL HIATAL HERNIA. Rebar Fabricator: ALONSO Transcribe Date/Time: Nov 04 2024 3:57P Dictated by : IZABELA LAMBERT MD This examination was interpreted and the report reviewed and electronically signed by: IZABELA LAMBERT MD on Nov 04 2024 5:14PM EST [id number] Healthcare Charlevoix HospitalNURSTEMPLETON DEVEL[facility] PROGon 46-01-4746IIDMMBK PROG HNO ID: [id number] Author: COLBY VAZQUEZ, EVAN Service: Radiology Author Type: Registered Nurse Type: [...] Raymundo DATE: November 04, 2024 TIME: 1:45 [facility] ID: [id number] Author: COLBY VAZQUEZ RN Service: Radiology Author [...] REFERRAL (RECOMMENDATION): None Electronically Signed By: Colby V[facility]quezCentral [facility] FECAL QUALon [id number], FECAL - NEUTRALNormalNormalNormalCTriHealth Bethesda North Hospital on above:Order Comment: Specimen Type: STOOL SPECIMENOrdering Facility: [facility] Address:[address] [place], [place] [address]Performed By: #### FFATQL ####[facility] [id number] [place], [place] [address]PDF, FECAL - SPLITNormalNormalNormalCTriHealth Bethesda North Hospital on above:Order Comment: Specimen Type: STOOL SPECIMENOrdering Facility: [facility] Address:[address] [place], [place] [address]Result Comment: INTERPRETIVE INFORMATION: Fecal Fat QualitativeNeutral fats include the monoglycerides, diglycerides, andtriglycerides while split fats are the free fatty acidsthat are liberated fromthem. Impaired synthesis orsecretion of pancreatic enzymes or bile may cause anincrease in neutral fats while an increase in split fatssuggests impaired absorption of nutrients.Performed By: [facility] [place] [address]Bmbagkiqmt Director: Anne-Marie Correa MD, PhDCLIANumber: [id number] By: #### FFATQL ####[facility] [id number] [place] [address] Amylase SerPl-cCncon 99-90-4632Ndijdpf [Catalytic activity/Vol]70 U/LNormal 30-104Avon HospitalComment on above:Order Comment: Specimen Type: BLOOD SPECIMEN [facility] Address: [address] [place], [place] [address]Performed By: #### [id number], [id number] #### [facility] CLIA [id number] [address] [place] [address] [place] AMERICACNPNon 32-03-8125CNGPXudtrq [facility] HospitalIGG SUBCLASS 1,2,3,4on 65-55-6272UiG subclass 1 (S) [Mass/Vol]576.5 mg/wEDfcnah907.4-928.6Avon HospitalComment on above:Order Comment: Specimen Type: BLOOD SPECIMEN [facility] Address: [address] [place], [place] [address]Performed By: #### [id number] #### [facility] CLIA [id number] [address] [place] [address] [place] AMERICAIgG subclass 2 (S) [Mass/Vol]251.2 mg/jVDdefew759.8-700.3Avon HospitalComment on above:Order Comment: Specimen Type: BLOOD SPECIMEN [facility] Address: [address] [place], [place] [address]Performed By: #### [id number] #### [facility] CLIA [id number] [address] [place] [address] [place] AMERICAIgG subclass 3 (S) [Mass/Vol]50.4 mg/oKLouidm15.8-176.1Avon HospitalComment on above:Order Comment: Specimen Type: BLOOD SPECIMEN [facility] Address: [address] [place], [place] [address]Performed By: #### [id number] #### [facility] CLIA [id number] [address] [place] [address] [place] AMERICAIgG subclass 4 (S) [Mass/Vol]64.4 mg/dLNormal3.9-86.4Avon HospitalComment on above:Order Comment: Specimen Type: BLOOD SPECIMEN [facility] Address: [address] [place], [place] [address]Performed By: #### [id number] #### [facility] CLIA [id number] [address] [place] [address] [place] AMERICAIgG SerPl-mCncon 10-23-2024 IgG [Mass/Vol]1100 mg/cZOkwfbk420-6486Wlac HospitalComment on above:Order Comment: Specimen Type: BLOOD SPECIMEN [facility] Address: [address] [place], [place] [address]Performed By: #### 2465-3 #### [facility] CLIA [id number] [address] [place], [place] [address] [place] AMERICALipase SerPl-cCncon 38-78-1851Nzbqgx [Catalytic activity/Vol]55 U/UXvaqli00-71Uesn HospitalComment on above:Order Comment: Specimen Type: BLOOD SPECIMEN [facility] Address: [address] [place], [place] [address]Performed By: #### [id number], [id number] #### [facility] CLIA [id number] [address] [place] [address] STATES OF [facility] HOSPITALUS ABD RIGHT UPPER QUADRANT on 01-73-0570ZF ABD RIGHT UPPER QUADRANT* * *Final Report* * * DATE OF EXAM: Oct 23 2024 2:18PM [facility] 1032 - US ABD RIGHT [...] 2. Small volume abdominal ascites. No splenomegaly. [facility]bar [facility]ric[facility] Transcribe Date/Time: Oct 26 2024 2:30P Dictated by : SANDRA BELTRE MD This examination was interpreted and the report reviewed and electronically signed by: SANDRA BELTRE MD on Oct 26 2024 2:34PM EST [id number] [facility] ABD SPLEEN -NBon 70-67-7400JV ABD SPLEEN -NB* * *Final Report* * * DATE OF EXAM: Oct 23 2024 2:18PM [facility] 1232 - US ABD SPLEEN [...] 2. Small volume abdominal ascites. No splenomegaly. Rebar Fabricator: [facility] Transcribe Date/Time: Oct 26 2024 2:30P Dictated by : SANDRA BELTRE MD This examination was interpreted and the report reviewed and electronically signed by: SNADRA BELTRE MD on Oct 26 2024 2:34PM EST [id number] [facility] limitedon 10-48-8121Meizaxwqb ClinicALKALINE PHOSPHATASE ISOENZYMES (P)on 48-03-7506ETA PHOS BONE %18.1 % Tkcutl28.7-68.3CTriHealth Bethes[facility] on above:Order Comment: Specimen Type: BLOOD SPECIMENOrdering Facility: [facility] Address:[address] [place], [place] [address]Performed By: #### ALKISOP ####[facility] LABIA [id number] [address] STATES OF AMERICAALK PHOS LIVER %81.9 %Normal 26.0-86.2CTriHealth [facility] on above:Order Comment: Specimen Type: BLOOD SPECIMENOrdering Facility: [facility] Address:[address] [place], [place] [address]Performed By: #### ALKISOP ####[facility] CAMPUSIA [id number] [place] [address] [place] AMERICABONE VVUJCTXH43.6 U/CKgdbke07.9-52.6CTriHealth [facility] on above:Order Comment: Specimen Type: BLOOD SPECIMENOrdering Facility: [facility] Address:[address] [place], [place] [address]Performed By: #### ALKISOP ####[facility] LABCLIA [id number] [place] [address] [place] INTESTINE FRACTION0.0 U/LNormal0.0-16.3CTriHealth [facility] on above:Order Comment: Specimen Type: BLOOD SPECIMENOrdering Facility: [facility] Address:[address] [place], [place] [address]Performed By: #### ALKISOP ####[facility] LABCLIA [id number] [place] [address] [place] [facility] S[facility] POINTE HOSPITALLIVER FEIOXDYP621.4 U/LHigh16.0-69.3CTriHealth [facility] on above:Order Comment: Specimen Type: BLOOD SPECIMENOrdering Facility: [facility] Address:[address] [place], [place] [address]Performed By: #### ALKISOP ####[facility] LABCLIA [id number] [address] STATES OF MALDIVIANeutrophils/100 WBC (Bld)0.0 % Normal0.0-24.2CTriHealth [facility] on above:Order Comment: Specimen Type: BLOOD SPECIMENOrdering Facility: [facility] Address:[address] [place], [place] [address]Performed By: #### ALKISOP ####[facility] LABCLIA [id number] [place] [address] [facility] OF [facility] POINTE HOSPITALALP SerPl-cCncon 20-10-6507XRD [Catalytic activity/Vol] 125 U/XQsbv05-129ApvkwyngtPremier Health [facility] Hospital on above:Order Comment: Specimen Type: BLOOD SPECIMENOrdering Facility: [facility] Address:[address] [place], [place] [address]Performed By: #### 6768-6, 79242-8, 36078-5 ####[facility] LABCLIA [id number] OF AMERICACBC W Auto Differential panel (Bld)on 00-96-4862Dafinoydy (Bld) [#/Vol]NINFClevelnovant health mint hill medical center ClinicBasophils/100 WBC (Bld)0.1 %[facility] Medical CenterDifferential cell count method Nom (Bld)AutoCleveland ClinicEosinophils (Bld) [#/Vol]NINFCleveland ClinicEosinophils/100 WBC (Bld)0 % [facility] Medical CenterErythrocyte distribution width (RBC) [Ratio]15.5 %High11.5 - 15.0 %[facility] Medical CenterHematocrit (Bld) [Volume fraction]40.7 %39.0 - 51.0 % [facility] Medical CenterHemoglobin (Bld) [Mass/Vol]12.9 g/dLLow13.0 - 17.0 g/dLAdena Pike Medical CenterImmature granulocytes (Bld) [#/Vol]0.09 10*3/uLNINFAdena Pike Medical Center Immature granulocytes/100 WBC (Bld)0.8 %[facility] Medical CenterInterpretation and review of laboratory resultsAbnormalCleveland Olivia Hospital And ClinicsLymphocytes (Bld) [#/Vol]0.8 10*3/uLLowAdena Pike Medical CenterLymphocytes/100 WBC (Bld)7.2 %[facility] Valley HospitalH (RBC) [Entitic mass]31.2 pg26.0 - 34.0 pgClevelEssentia HealthHC (RBC) [Mass/Vol] 31.7 g/dL30.5 - 36.0 g/dLOhio Valley HospitalV (RBC) [Entitic vol]98.5 fL80.0 - 100.0 fLClevelMercy Health Springfield Regional Medical CenterMonocytes (Bld) [#/Vol]0.81 10*3/uLNINFAdena Pike Medical Center Monocytes/100 WBC (Bld)7.3 %[facility] Medical CenterNeutrophils (Bld) [#/Vol]9.45 10*3/uLHighAdena Pike Medical CenterNeutrophils/100 WBC (Bld)84.6 %[facility] Nucleated RBC (Bld) [#/Vol]NINFCleveland ClinicNucleated RBC/100 WBC (Bld) [Ratio]0 %/100 WBCAdena Pike Medical CenterPlatelet mean volume (Bld) [Entitic vol]10.5 fL9.0 - 12.7 fLCMartin Memorial HospitalPlatelets (Bld) [#/Vol]202 10*3/uLChappell Hill ClinicRBC (Bld) [#/Vol]4.13 10*6/uLLow4.20 - 6.00 m/[facility] HospitalWBC (Bld) [#/Vol]11.16 10*3/uLHighGrand Lake Joint Township District Memorial Hospital ClinicBasophils (Bld) [#/Vol] 10*3/uLNormal<0.11CTriHealth [facility] on above:Order Comment: Specimen Type: BLOOD SPECIMENOrdering Facility: [facility] Address:[address] [place], [place] [address]Performed By: #### 76870-3, 453-7 ####[facility] LABCLIA [id number] [place] [address] [place] AMERICABasophils/100 WBC (Bld)0.1 % NormalPremier Health Miami Valley Hospital on above:Order Comment: Specimen Type: BLOOD SPECIMENOrdering Facility: [facility] Address:[address] [place], [place] [address]Performed By: #### 72009-8, 4537-7 ####[facility] LABCLIA [id number] [place] [address] [place] AMERICADifferential cell count method Nom (Bld)AutoNormal [facility] on above:Order Comment: Specimen Type: BLOOD SPECIMENOrdering Facility: [facility] Address:[address] [place], [place] [address]Performed By: #### 17465-2, 4536-7 ####[facility] LABCLIA [id number] [place] [id number] [place] AMERICAEosinophils (Bld) [#/Vol]10*3/uLNormal<0.46[facility] on above:Order Comment: Specimen Type: BLOOD SPECIMENOrdering Facility: [facility] Address:[address] [place], [place] [address]Performed By: #### 98457-0, 7 ####[facility] LABCLIA [id number] [place] [address] [place] [facility] PO[facility]TE HOSPITALEosinophils/100 WBC (Bld)0.0 %NormalPremier Health Miami Valley Hospital on above:Order Comment: Specimen Type: BLOOD SPECIMENOrdering Facility: [facility] Address:[address] [place], [place] [address]Performed By: #### 65340-2, 7 ####[facility] LABIA [id number] [place] [address] [place] AMERICAErythrocyte distribution width (RBC) [Ratio]15.5 %High11.5-15.0[facility] Comment on above:Order Comment: Specimen Type: BLOOD SPECIMENOrdering Facility: [facility] Address:[address] [place] [address] Performed By: #### 03989-8, 7 ####[facility] LABIA [id number] [place] [address] [place] Hematocrit (Bld) [Volume fraction]40.7 %Ejanpv83.0-51.0[facility] on above:Order Comment: Specimen Type: BLOOD SPECIMENOrdering Facility: [facility] Address:[address] [place], [place] [address]Performed By: #### 32521-6, 7 ####[facility] LABIA [id number] [place] [address] [place] Hemoglobin (Bld) [Mass/Vol]12.9 g/dLLow13.0-17.0[facility] Comment on above:Order Comment: Specimen Type: BLOOD SPECIMENOrdering Facility: [facility] Address:[address] [place] [address] Performed By: #### [id number], 4536-7 ####[facility] [id number] [place] [address] [place] Immature granulocytes (Bld) [#/Vol]0.09 10*3/uLNormal<0.10[facility] HospitalComment on above:Order Comment: Specimen Type: BLOOD SPECIMENOrdering Facility: [facility] Address:[address] [place], [place] [address]Performed By: #### [id number], 7 ####[facility] [id number] [place] [address] [place] OF AMERICAImmature granulocytes/100 WBC (Bld)0.8 %NormalTrihealth Bethesda Butler Hospital Comment on above:Order Comment: Specimen Type: BLOOD SPECIMENOrdering Facility: [facility] Address:[address] [place] [address] Performed By: #### 86998-7, 7 ####[facility] LABIA [id number] [place] [address] [place] Lymphocytes (Bld) [#/Vol]0.80 10*3/uLLow1.00-4.00[facility] Comment on above:Order Comment: Specimen Type: BLOOD SPECIMENOrdering Facility: [facility] Address:[address] [place] [address] Performed By: #### 82750-7, 7 ####[facility] LABIA [id number] [place] [address] [place] Lymphocytes/100 WBC (Bld)7.2 %NormalTrihealth Bethesda Butler HospitalComment on above: Order Comment: Specimen Type: BLOOD SPECIMENOrdering Facility: [facility] Address:[address] [place], [place] [address]Performed By: #### 85038- 8, 4536-7 ####[facility] LABIA [id number] [facility] [place] [address] [place] AMERICAMC (RBC) [Entitic mass] 31.2 yjZrxvpu04.0-34.0[facility] on above:Order Comment: Specimen Type: BLOOD SPECIMENOrdering Facility: [facility] Address:[address] [place], [place] [address]Performed By: #### 98014-7, 4536-7 ####[facility] LABIA [id number] [address]ETMCHC (RBC) [Mass/Vol]31.7 g/dL Aasphq52.5-36.0[facility] on above:Order Comment: Specimen Type: BLOOD SPECIMENOrdering Facility: [facility] Address:[address] [place], [place] [address]Performed By: #### 64298-9, 4536-7 ####[facility] LABIA [id number] [address]ETMCV (RBC) [Entitic vol]98.5 fL Kyhjpc09.0-100.0[facility] on above:Order Comment: Specimen Type: BLOOD SPECIMENOrdering Facility: [facility] Address:[address] [place], [place] [address]Performed By: #### 15909-3, 7 ####[facility] LABIA [id number] [place] [address] [place] AMERICAMonocytes (Bld) [#/Vol]0.81 10*3/uLNormal<0.87[facility] on above:Order Comment: Specimen Type: BLOOD SPECIMENOrdering Facility: [facility] Address:[address] [place], [place] [address]Performed By: #### 44371-8, 7 ####[facility] LABIA [id number] [address] OF AMERICAMonocytes/100 WBC (Bld)7.3 % NormalPremier Health Miami Valley Hospital on above:Order Comment: Specimen Type: BLOOD SPECIMENOrdering Facility: [facility] Address:[address] [place], [place] [address]Performed By: #### 93930-8, 4536-7 ####[facility] [id number] [place] [address] [place] AMERICANeutrophils (Bld) [#/Vol]9.45 10*3/uLHigh1.45-7.50 [facility] on above:Order Comment: Specimen Type: BLOOD SPECIMENOrdering Facility: [facility] Address:[address] [place], [place] [address]Performed By: #### 69932-7, 7 ####[facility] LABIA [id number] [place] [address] [place] AMERICANeutrophils/100 WBC (Bld)84.6 %NormalTrihealth Bethesda [facility] Hospital Comment on above:Order Comment: Specimen Type: BLOOD SPECIMENOrdering Facility: [facility] Address:[address] [place] [address] Performed By: #### 98460-9, 7 ####[facility] [id number] [place] [address] [place] Nucleated RBC (Bld) [#/Vol]10*3/uLNormal<0.01[facility] on above:Order Comment: Specimen Type: BLOOD SPECIMENOrdering Facility: [facility] Address:[address] [place] [address] Performed By: #### 96590-6, 7 ####[facility]IA [id number] [place] [address] [place] Nucleated RBC/100 WBC (Bld) [Ratio]0.0 /100 WBCNormalCUniversity Hospitals [facility] Comment on above:Order Comment: Specimen Type: BLOOD SPECIMENOrdering Facility: [facility] Address:[address] [place] [address] Performed By: #### 46687-5, 4537-7 ####[facility] LABCLIA [id number] [place] [address] [place] Platelet mean volume (Bld) [Entitic vol]10.5 fLNormal9.0-12.7CTriHealth Bethesda North Hospital on above:Order Comment: Specimen Type: BLOOD SPECIMENOrdering Facility: [facility] Address:[address] [place], [place] [address]Performed By: #### 55074-9, 453-7 ####[facility] [id number] [place] [address] [place] Platelets (Bld) [#/Vol]202 10*3/tDXecvss066-286KduqlobeuPremier Health Miami Valley Hospital on above:Order Comment: Specimen Type: BLOOD SPECIMENOrdering Facility: [facility] Address:[address] [place] [address] Performed By: #### 66972-1, 4536-7 ####[facility] LABCLIA [id number] [place] [address] [place] RBC (Bld) [#/Vol]4.13 10*6/uLLow4.20-6.00[facility] on above:Order Comment: Specimen Type: BLOOD SPECIMENOrdering Facility: [facility] Address:[address] [place], [place] [address]Performed By: #### 45413-8, 4536-7 ####[facility] [id number] [place] [address] [place] AMERICAWBC (Bld) [#/Vol]11.16 10*3/uLHigh3.70-11.00[facility] on above:Order Comment: Specimen Type: BLOOD SPECIMENOrdering Facility: [facility] Address:[address] [place], [place] [address]Performed By: #### 58902-9, 7-7 ####[facility] LABCLIA [id number] [place] [address] [place] AMERICACNOVon 83-03-3673LKEUOfbcws [facility] ClevelandCNPTOUTREACHon 34-48-8450NUDXSUSDSZMHBgiixnEibdalnwb Clinic Cleohiohealth grant medical centerCRP SerPl HS-mCncon 55-47-3020QJS High sensitivity method [Mass/Vol]13.2 mg/LHigh<3.1[place] on above:Order Comment: Specimen Type: BLOOD SPECIMENOrdering Facility: [facility] Address:[address] [place], [place] [address]Result Comment: hsCRP < 1.0 mg/L, relative risk is lowhsCRP 1.0-3.0 mg/L, relative risk is averagehsCRP > 3.0 mg/L, relative risk is highReference:Roman TA, Wilma GA, Octavio RW, et al. Markers of Inflammation and Cardiovascular Disease. Application to Clinical and Public Health Practice. A Statement for Healthcare Professionals from the Centers for Disease Control and Prevention and the [place] [employer]. Circulation 2003;107:499-511.Performed By: #### 6768-6, 67739-6, 57006-4 ####[facility] LAB[facility] [id number] [address] [place] AMERICAComprehensive metabolic 2000 panelon 62-43-0444Sckfaim [Mass/Vol]4.2 g/dL3.9 - 4.9 g/dLCleohiohealth grant medical center ClinicALP [Catalytic activity/Vol]125 U/LHigh38 - 113 U/LCleveland ClinicALT [Catalytic activity/Vol]41 U/L10 - 54 U/LCleveland ClinicAnion gap [Moles/Vol]14 mmol/L8 - 15 mmol/LCleveland ClinicAST [Catalytic activity/Vol]53 U/LHigh14 - 40 U/L [facility] ClinicBilirubin [Mass/Vol]0.6 mg/dL0.2 - 1.3 mg/dLAdena Pike Medical Center Calcium [Mass/Vol]9.7 mg/dL8.5 - 10.2 mg/dLAdena Pike Medical CenterChloride [Moles/Vol] 101 mmol/L98 - 107 mmol/LCleveland ClinicCO2 [Moles/Vol]27 mmol/L22 - 30 mmol/L [facility] CenterCreatinine [Mass/Vol]1.09 mg/dL0.73 - 1.22 mg/dLAdena Pike Medical Center GFR/1.73 sq M.predicted among non-blacks MDRD (S/P/Bld) [Vol rate/Area]72 mL/min/{1.73_m2}- PINFCMartin Memorial HospitalComment on above:Estimated Glomerular Filtration Rate (eGFR) is calculated using the 2020 CKD-EPI creatinine equation. This equation utilizes serum creatinine, sex, and age as parameters. The creatinine assay has traceable calibration to isotope dilution-mass spectrometry. Refer to KDIGO guidelines for clinical interpretation. In patients with unstable renal function, e.g. those with acute kidney injury, the eGFRmay not accurately reflect actual GFR.Glucose [Mass/Vol]116 mg/dWQdip20 - 99 mg/dL [facility] on above:The [place] Diabetes Association (ADA) provides guidance for cutoff values for fasting glucose andrandom glucose. The ADA defines fasting as no caloric intake for at least 8 hours. Fasting plasma gl ucose results between 100 to 125 mg/dL indicate [...] [place] Diabetes [employer]. Diabetes Care. 2016.39(Suppl 1). Potassium [Moles/Vol]4.1 mmol/L3.7 - 5.1 mmol/LCleveland ClinicProtein [Mass/Vol]7.6 g/dL6.3 - 8.0 g/dLChappell Hill ClinicSodium [Moles/Vol]142 mmol/L136 - 144 mmol/LCleveland ClinicUrea nitrogen [Mass/Vol]35 mg/dLHigh9 - 24 mg/dL [facility] ClinicAlbumin [Mass/Vol]4.2 g/dLNormal3.9-4.9CTriHealth [facility] on above:Order Comment: Specimen Type: BLOOD SPECIMENOrdering Facility: [facility] Address:[address] [place], [place] [address]Performed By: #### 6768-6, 34225-8, 92573-2 ####[facility] LABCLIA [id number] [address] [place] [address] [place] AMERICAALT [Catalytic activity/Vol]41 U/AGnkvyj99-46YzbekubilPremier Health [facility] Hospital on above:Order Comment: Specimen Type: BLOOD SPECIMENOrdering Facility: [facility] Address:[address] [place], [place] [address]Performed By: #### 6768-6, 44288-7, 84339-5 ####[facility] LABCLIA [id number] [place]IL[place] [address] [place] AMERICAAnion gap [Moles/Vol]14 mmol/LNormal8-15[facility] on above:Order Comment: Specimen Type: BLOOD SPECIMENOrdering Facility: [facility] Address:[address] [place], [place] [address]Performed By: #### 6768-6, 03146-0, 29102-9 ####[facility] LABCLIA [id number] [address] [place] AMERICAAST [Catalytic activity/Vol]53 U/RDxgc05-69EatiwocgxPrem[facility] Health [facility] on above:Order Comment: Specimen Type: BLOOD SPECIMENOrdering Facility: [facility] Address:[address] [place], [place] [address]Performed By: #### 6768-6, 42544-4, 88057-2 ####[facility] LABCLIA [id number] [address] [place] AMERICABilirubin [Mass/Vol]0.6 mg/dLNormal0.2-1.3CTriHealth [facility] on above:Order Comment: Specimen Type: BLOOD SPECIMENOrdering Facility: [facility] Address:[address] [place], [place] [address]Performed By: #### 6768-6, 43273-0, 73870-5 ####[facility] LABCLIA [id number] [place] [id number] [place] AMERICACalcium [Mass/Vol]9.7 mg/dLNormal8.5-10.2ClevelCannon Memorial HospitalComment on above:Order Comment: Specimen Type: BLOOD SPECIMENOrdering Facility: [facility] Address:[address] [place], [place] [address]Performed By: #### 6768-6, 92605-2, 60452-0 ####[facility] LABCLIA [id number] VILLE [address] [place] AMERICAChloride [Moles/Vol]101 mmol/TKbmujd86-731SzfgnkmjrTrihealth Bethesda Butler HospitalComment on above:Order Comment: Specimen Type: BLOOD SPECIMENOrdering Facility: [facility] Address:[address] [place], [place] [address]Performed By: #### 6768-6, 14898-7, 01713-7 ####[facility] LABCLIA [id number] VILLE [address] [place] AMERICACO2 [Moles/Vol]27 mmol/SIahjak97-23OpzbcswfiTrihealth [facility]da [facility] Comment on above:Order Comment: Specimen Type: BLOOD SPECIMENOrdering Facility: [facility] Address:[address] [place] [address] Performed By: #### 6768-6, 66777-6, 03616-1 ####[facility] LABIA [id number] [address] [address] [place] AMERICACreatinine [Mass/Vol]1.09 mg/dLNormal0.73-1.22[facility] Comment on above:Order Comment: Specimen Type: BLOOD SPECIMENOrdering Facility: [facility] Address:[address] [place] [address] Performed By: #### 6768-6, 44752-0, 47388-7 ####[facility] [id number] [address] [place] AMERICACreatinine and Glomerular filtration rate.predicted panel (S/P/Bld)72 mL/min/1.73m???Normal>=60[facility] on above:Order Comment: Specimen Type: BLOOD SPECIMENOrdering Facility: [facility] Address:[address] [place], [place] [address]Result Comment: Estimated Glomerular Filtration Rate (eGFR) is calculated using the 2020 CKD-EPI cre atinine equation. This equation utilizes serum creatinine, sex, and age as parameters. The creatinine assay has traceable calibration to isotope dilution- mass spectrometry. Refer to KDIGO guidelines for clinical interpretation. In patients with unstable renal function, e.g. those with acute kidney injury, the eGFR may not accurately reflect actual GFR.Performed By: #### 6768-6, 96674-9, 72173-7 ####[facility] [id number] [address] [place] AMERICAGlucose [Mass/Vol]116 mg/dLHigh 74-99[facility] on above:Order Comment: Specimen Type: BLOOD SPECIMENOrdering Facility: [facility] Address:[address] [place], [place] [address]Result Comment: The [place] Diabetes Association (ADA) provides [...] unequivocal hyperglycemia, results should be confirmed by repeattesting. In a patient with classic symptoms of hyperglycemia or hyperglycemic crisis, random plasmaglucose results greater than or equal to 200 mg/dL meet the criteria for diagnosis of diabetes.Reference: Standards of Medical Care in Diabetes 2016, [place] Diabetes Association. Diabetes Care. 2016.39(Suppl 1).Performed By: #### 6768-6, 42703-0, 99757-5 ####[facility] LABCLIA [id number] [address] [place] AMERICAPotassium [Moles/Vol] 4.1 mmol/LNormal3.7-5.1CTriHealth [facility] on above:Order Comment: Specimen Type: BLOOD SPECIMENOrdering Facility: [facility] Address:[address] [place], [place] [address]Performed By: #### 6768-6, 19149-2, ####[facility] LAB[facility] [id number] [address] [place] AMERICAProtein [Mass/Vol]7.6 g/dLNormal 6.3-8.0[facility] on above:Order Comment: Specimen Type: BLOOD SPECIMENOrdering Facility: [facility] Address:[address] [place], [place] [address]Performed By: #### 6768-6, 26652-8, ####[facility] [id number] [address] [place] AMERICASodium [Moles/Vol]142 mmol/L Gotcht041-635TeurrivzhPremier Health [facility] Hospital on above:Order Comment: Specimen Type: BLOOD SPECIMENOrdering Facility: [facility] Address:[address] [place], [place] [address]Performed By: #### 6768-6, 62037-7, ####[facility] LAB[facility] [id number] VILLE [id number] [place] AMERICAUrea nitrogen [Mass/Vol]35 mg/dL High9-24[facility] on above:Order Comment: Specimen Type: BLOOD SPECIMENOrdering Facility: [facility] Address:[address] [place], [place] [address]Performed By: #### 6768-6, 33651-7, ####[facility] [id number] [address] [address] [place] AMERICAAlbumin [Mass/Vol]4.2 g/dL3.9 - 4.9 g/dLChappell Hill ClinicALP [Catalytic activity/Vol]124 U/LHigh38 - 113 U/L [facility] ClinicALT [Catalytic activity/Vol]40 U/L10 - 54 U/LCleveland Clinic Anion gap [Moles/Vol]13 mmol/L8 - 15 mmol/LCleveland ClinicAST [Catalytic activity/Vol]49 U/LHigh14 - 40 U/LCleveland ClinicBilirubin [Mass/Vol]0.7 mg/dL 0.2 - 1.3 mg/dLChappell Hill ClinicCalcium [Mass/Vol]9.3 mg/dL8.5 - 10.2 mg/dL [facility] ClinicChloride [Moles/Vol]100 mmol/L98 - 107 mmol/LCleveland ClinicCO2 [Moles/Vol]28 mmol/L22 - 30 mmol/LCleveland ClinicCreatinine [Mass/Vol]1.13 mg/dL0.73 - 1.22 mg/dLChappell Hill ClinicGFR/1.73 sq M.predicted among non-blacks MDRD (S/P/Bld) [Vol rate/Area]69 mL/min/{1.73_m2}- PINJ.W. Ruby Memorial HospitalComment on above:Estimated Glomerular Filtration Rate (eGFR) is calculated using the 2020 CKD-EPI creatinine equation. This equation utilizes serum creatinine, sex, and age as parameters. The creatinine assay has traceable calibration to isotope dilution-mass spectrometry. Refer to KDIGO guidelines for clinical inte rpretation. In patients with unstable renal function, e.g. those with acute kidney injury, the eGFRmay not accurately reflect actual GFR.Glucose [Mass/Vol] 104 mg/kSHfnp52 - 99 mg/dLAdena Pike Medical CenterComment on above:The [place] Diabetes Association (ADA) provides guidance for [...] [place] Diabetes Association. Diabetes Care. 2016.39(Suppl 1). Potassium [Moles/Vol]3.8 mmol/L3.7 - 5.1 mmol/LCleveland ClinicProtein [Mass/Vol]7.5 g/dL6.3 - 8.0 g/dLChappell Hill ClinicSodium [Moles/Vol]141 mmol/L136 - 144 mmol/LCleveland ClinicUrea nitrogen [Mass/Vol]33 mg/dLHigh9 - 24 mg/dL [facility] Westergren method (Bld) [Velocity]on 04-91-9163KLR (Bld) [Velocity]34 mm/hHighAdena Pike Medical CenterInterpretation and review of laboratory resultsAbnormalCleveland [facility] (Bld) [Velocity]34 mm/hHigh 0-15[facility] HospitalComment on above:Order Comment: Specimen Type: BLOOD SPECIMENOrdering Facility: [facility] Address:[address] [place], [place] [address]Performed By: #### 96906-3, 4537-7 ####[facility] LABCLIA [id number] [address] OF [facility] HOSPITALHIGH SENSITIVITY C-REACTIVE PROTEINon 21-69-8261BLU High sensitivity method [Mass/Vol]13.2 mg/LHighNINF - 3.1 mg/LCohio state university wexner medical centerand [facility] Comment on above:hsCRP < 1.0 mg/L, relative risk is low [...] and the [place] Heart Association. Circulation 2003;107:499-511. Laboratory - Chemistry and Chemistry - challengeon 05-17-4942Onvod glutamyl transferase [Catalytic activity/Vol]136 U/LHigh10 - 70 U/LC[facility] Magnesium [Mass/Vol]2.2 mg/dL1.7 - 2.3 mg/dLAdena Pike Medical CenterMagnesium [Mass/Vol] on 91-09-5838Rgfbdezhtbxmjs and review of laboratory resultsNormalCleveland [facility] ClinicsNo Panel Informationon 71-48-5072Ffrluuqflbhxvj and review of laboratory resultsAbnormalCleveland [facility] HospitalInterpretation and review of laboratory resultsAbnormalCohio state university [facility] medical centerand [facility] Behavioral HospitalProt/Creat Uron 77-66-4529Auenkmz/Creatinine (U) [Mass ratio]mg/gHigh<0.15[facility] on above:Order Comment: Specimen Type: URINE SPECIMENOrdering Facility: [facility] Address:[address] [place], [place] [address]Result Comment: Adult Proteinuria Categories:<0.15 mg/mg is considered normal to mildly increased0.15 - 0.50 mg/mg is considered moderately increased>0.50 mg/mg is considered severely increasedKDIGO. (2013). KDIGO 2012 Clinical Practice Guideline for the Evaluation and Management of Chronic Kidney Disease. Official Journal of the International Society of Nephrology, 3(1), 1-150.Performed By: #### 2890-2 ####[facility] LABIA [id number] [place] [address] [place] Protein/Creatinine (U) [Mass ratio]on 95-95-4592Fcitdtzxys (U) [Mass/Vol]12.6 mg/dLLow20.0-300.0[facility] on above:Order Comment: Specimen Type: URINE SPECIMENOrdering Facility: [facility] Address:[address] [place] [id number] By: #### 2890-2 ####[facility] [id number] [facility] [id number] [place] [address] [place] AMERICAProtein (U) [Mass/Vol]mg/dLNormal 0-20[facility] on above:Order Comment: Specimen Type: URINE SPECIMENOrdering Facility: [facility] Address:[address] [place], [place] [address]Performed By: #### 2890-2 ####[facility] LABCLIA [id number] [place] [address] [place] AMERICAUA DIP, URINE (POC)on 20-28-8208BWCUPXHDR UA (POCT)Negative NegativeChappell Hill ClinicCLARITY UA (POCT)ClearCleFairfield Medical CenterCOLOR UA (POCT) Light yellowCleFairfield Medical CenterGLUCOSE UA (POCT)NegativeNegative mg/dLAdena Pike Medical CenterHemoglobin Ql (U)NegativeNegativeChappell Hill ClinicKETONE UA (POCT)Negative Negative mg/dLAdena Pike Medical CenterLEUKOCYTES UA (POCT)NegativeNegativeChappell Hill ClinicNITRITE UA (POCT)NegativeNegativeChappell Hill ClinicPH UA (POCT)74.5 - 8.0 EspinosaFairfield Medical CenterProtein Ql (U)NegativeNegative mg/dLMcCullough-Hyde Memorial HospitalPECIFIC GRAVITY UA (POCT)1.0151.005 - 1.030Adena Pike Medical CenterUROBILINOGEN UA (POCT)0.2 Normal E.U./dLAdena Pike Medical CenterLocation:[facility], [address] [place] [address], [address] [place] [address] POINT OF CAREAdena Pike Medical CenterCBC panel Auto (Bld)on 06-60-9760Tqbsvqtszta distribution width (RBC) [Ratio]15.7 %High 11.5 - 15.0 %[facility] Medical CenterHematocrit (Bld) [Volume fraction]39.8 %39.0 - 51.0 %[facility] Medical CenterHemoglobin (Bld) [Mass/Vol]13 g/dL13.0 - 17.0 g/dLAdena Pike Medical CenterInterpretation and review of laboratory resultsAbnormalCleveland St. Luke's HospitalH (RBC) [Entitic mass]31.9 pg26.0 - 34.0 pgClevelEssentia HealthHC (RBC) [Mass/Vol] 32.7 g/dL30.5 - 36.0 g/dLOhio Valley HospitalV (RBC) [Entitic vol]97.5 fL80.0 - 100.0 fLCleveland ClinicNucleated RBC (Bld) [#/Vol]NINFClevelnovant health mint hill medical center ClinicPlatelet mean volume (Bld) [Entitic vol]10.9 fL9.0 - 12.7 fLCleveland ClinicPlatelets (Bld) [#/Vol]183 10*3/[facility] Memorial HospitalRBC (Bld) [#/Vol]4.08 10*6/uLLow4.20 - 6.00 m/[facility] Memorial HospitalWBC (Bld) [#/Vol]7.85 10*3/[facility] Medical CenterErythrocyte distribution width (RBC) [Ratio]15.7 %High11.5-15.0[facility] HospitalComment on above:Order Comment: Specimen Type: BLOOD SPECIMENOrdering Facility: [facility] Address:[address] [place], [place] [address]Performed By: #### 08324-6 ####[facility] [id number] [place] [address] [place] [facility]TE HOSPITALHematocrit (Bld) [Volume fraction]39.8 %Qwzowo01.0-51.0[facility] on above:Order Comment: Specimen Type: BLOOD SPECIMENOrdering Facility: [facility] Address:[address] [place], [place] [address]Performed By: #### 49353-3 ####[facility] [id number] [place] [address] [place] CINDY Hemoglobin (Bld) [Mass/Vol]13.0 g/iMUwbqai20.0-17.0[facility] Comment on above:Order Comment: Specimen Type: BLOOD SPECIMENOrdering Facility: [facility] Address:[address] [place] [address] Performed By: #### 76052-8 ####[facility] [id number] [place] [address] [place] MCH (RBC) [Entitic mass]31.9 rrEaeqod01.0-34.0[facility] on above:Order Comment: Specimen Type: BLOOD SPECIMENOrdering Facility: [facility] Address:[address] [place] [address] Performed By: #### 12572-0 ####[facility] LABIA [id number] [place] [address] [place] MCHC (RBC) [Mass/Vol]32.7 g/lHFqtuku44.5-36.0[facility] on above:Order Comment: Specimen Type: BLOOD SPECIMENOrdering Facility: [facility] Address:[address] [place] [address] Performed By: #### 86425-9 ####[facility] [id number] [place] [address] [place] MCV (RBC) [Entitic vol]97.5 vUVlcawz38.0-100.0[facility] on above:Order Comment: Specimen Type: BLOOD SPECIMENOrdering Facility: [facility] Address:[address] [place] [address] Performed By: #### 48143-3 ####[facility] [id number] [place] [address] [place] Nucleated RBC (Bld) [#/Vol]10*3/uLNormal<0.01[facility] on above:Order Comment: Specimen Type: BLOOD SPECIMENOrdering Facility: [facility] Address:[address] [place] [address] Performed By: #### 32688-7 ####[facility] [id number] [place] [address] [place] Platelet mean volume (Bld) [Entitic vol]10.9 fLNormal9.0-12.7CTriHealth [facility] on above:Order Comment: Specimen Type: BLOOD SPECIMENOrdering Facility: [facility] Address:[address] [place], [place] [address]Performed By: #### 99020-8 ####[facility] [id number] [place] [address] [place] Platelets (Bld) [#/Vol]183 10*3/wEEdiodz286-246MpjjwmfirPrem[facility] Health [facility] on above:Order Comment: Specimen Type: BLOOD SPECIMENOrdering Facility: [facility] Address:[address] [place] [address] Performed By: #### 12621-7 ####[facility] LABCLIA [id number] [place] [address] [place] RBC (Bld) [#/Vol]4.08 10*6/uLLow4.20-6.00[facility] on above:Order Comment: Specimen Type: BLOOD SPECIMENOrdering Facility: [facility] Address:[address] [place], [place] [address]Performed By: #### 41317-0 ####[facility] LABCLIA [id number] [place] [address] [place] AMERICAWBC (Bld) [#/Vol]7.85 10*3/uLNormal3.70-11.00[facility] on above:Order Comment: Specimen Type: BLOOD SPECIMENOrdering Facility: [facility] Address:[address] [place], [place] [address]Performed By: #### 11333-8 ####[facility] LABCLIA [id number] [place] [address] [place] AMERICACNOVon 35-65-4761DFUNFfapyd [facility] HospitalComprehensive metabolic 2000 panelon 02-20-0540Cwlzyhv [Mass/Vol]4.2 g/dLNormal3.9-4.9CTriHealth [facility] on above:Order Comment: Specimen Type: BLOOD SPECIMENOrdering Facility: [facility] Address:[address] [place], [place] [address]Performed By: #### 02701- 8, 63832-3, 2324-2 ####[facility] LABCLIA [id number] AVENUEDESK [address]05QR[place]UXXYY, [place] [address] [place] AMERICAALP [Catalytic activity/Vol]124 U/YHaok63-715AwppkicukPremier Health [facility] on above:Order Comment: Specimen Type: BLOOD SPECIMENOrdering Facility: [facility] Address:[address] [place], [place] [address]Performed By: #### 14019- 8, 94455-6, 2323-07 ####[facility] LABCLIA [id number] [place] [id number] [place] AMERICAALT [Catalytic activity/Vol]40 U/GZqwbvq75-06JremkllqbPremier Health [facility] on above:Order Comment: Specimen Type: BLOOD SPECIMENOrdering Facility: [facility] Address:[address] [place], [place] [address]Performed By: #### 14331- 8, , 2323-07 ####[facility] LABCLIA [id number] [place] [id number] [place] AMERICAAnion gap [Moles/Vol] 13 mmol/LNormal8-15[facility] on above:Order Comment: Specimen Type: BLOOD SPECIMENOrdering Facility: [facility] Address:[address] [place], [place] [address]Performed By: #### 40866-0, , 2323-07 ####[facility] LABCLIA [id number] [place] [id number] [place] AMERICAAST [Catalytic activity/Vol]49 U/PVlmj11-50PdoiuxjgsPrem[facility] on above:Order Comment: Specimen Type: BLOOD SPECIMENOrdering Facility: [facility] Address:[address] [place], [place] [address]Performed By: #### 71714-0, , 2323-07 ####[facility] LABCLIA [id number] [address] [address] [place] AMERICABilirubin [Mass/Vol]0.7 mg/dL Normal0.2-1.3CTriHealth [facility] on above:Order Comment: Specimen Type: BLOOD SPECIMENOrdering Facility: [facility] Address:[address] [place], [place] [address]Performed By: #### 65059-1, , 2323-07 ####[facility] LABCLIA [id number] [place] [id number] [place] AMERICACalcium [Mass/Vol]9.3 mg/dLNormal 8.5-10.2CT[facility] on above:Order Comment: Specimen Type: BLOOD SPECIMENOrdering Facility: [facility] Address:[address] [place], [place] [address]Performed By: #### 67566-2, , 2323-07 ####[facility] LABCLIA [id number] [place]IL[place] [id number] [place] AMERICAChloride [Moles/Vol]100 mmol/L Aiqzxg78-176MgbaexjfmPrem[facility] Health [facility] on above:Order Comment: Specimen Type: BLOOD SPECIMENOrdering Facility: [facility] Address:[address] [place], [place] [address]Performed By: #### 94215-4, , 2323-07 ####[facility] LABCLIA [id number] VIL[place] [id number] [place] AMERICACO2 [Moles/Vol]28 mmol/LNormal 22-30[facility] on above:Order Comment: Specimen Type: BLOOD SPECIMENOrdering Facility: [facility] Address:[address] [place], [place] [address]Performed By: #### 47494-1, , 2323-07 ####[facility] LABCLIA [id number] VILLE [id number] [place] AMERICACreatinine [Mass/Vol]1.13 mg/dL Normal0.73-1.22[facility] on above:Order Comment: Specimen Type: BLOOD SPECIMENOrdering Facility: [facility] Address:[address] [place] [address]Qytwmqirl By: #### 12556-7, 49523-3, 4-2 ####[facility] [id number] VILLE [id number] [place] AMERICACreatinine and Glomerular filtration rate.predicted panel (S/P/Bld)69 mL/min/1.73m???Normal>=60[facility] on above:Order Comment: Specimen Type: BLOOD SPECIMENOrdering Facility: [facility] Address:[address] [place] [address]Mlxvgk Comment: Estimated Glomerular Filtration Rate (eGFR) is calculated using the 2020 CKD-EPI creatinine equation. This equation utilizes serum creatinine, sex, and age as parameters. The creatinine assay has traceable calibration to isotope dilution-mass spectrometry. Refer to KDIGO guidelines for clinical interpretation. In patients with unstable renal function, e.g. those with acute kidney injury, the eGFR may not accurately reflect actual GFR.Performed By: #### 66159-0, 45608-0, 4-2 ####[facility] LABIA [id number] [address] [place] AMERICAGlucose [Mass/Vol]104 mg/nVMjoj35-54GmvqaibetPremier Health [facility] on above:Order Comment: Specimen Type: BLOOD SPECIMENOrdering Facility: [facility] Address:[address] [place] [address]Gunxgw Comment: The [place] [employer] (ADA) provides [...] unequivocal hyperglycemia, results should be confirmed by repeattesting. In a patient with classic symptoms of hyperglycemia or hyperglycemic crisis, random plasmaglucose results greater than or equal to 200 mg/dL meet the criteria for diagnosis of diabetes.Reference: Standards of Medical Care in Diabetes 2016, [place] [employer]. Diabetes Care. 2016.39(Suppl 1).Performed By: #### 15654- 8, 38003-6, 4-2 ####[facility] LABCLIA [id number] VILLE [id number] [place] AMERICAPotassium [Moles/Vol] 3.8 mmol/LNormal3.7-5.1CTriHealth [facility] on above:Order Comment: Specimen Type: BLOOD SPECIMENOrdering Facility: [facility] Address:[address] [place], [place] [address]Performed By: #### 50677-6, 74406-2, 2 ####[facility] LABIA [id number] VIL[place] [id number] [place] AMERICAProtein [Mass/Vol]7.5 g/dLNormal 6.3-8.0[facility] on above:Order Comment: Specimen Type: BLOOD SPECIMENOrdering Facility: [facility] Address:[address] [place], [place] [address]Performed By: #### 37382-9, , 2323-07 ####[facility] LABIA [id number] VILLE [id number] [place] AMERICASodium [Moles/Vol]141 mmol/L Zzzrtt848-014GriqrkqbdPrem[facility] on above:Order Comment: Specimen Type: BLOOD SPECIMENOrdering Facility: [facility] Address:[address] [place], [place] [address]Performed By: #### 67237-7, 47792-6, 2323-07 ####[facility] LABM[facility] [id number] VILLE [id number] [place] AMERICAUrea nitrogen [Mass/Vol]33 mg/dL High9-24[facility] on above:Order Comment: Specimen Type: BLOOD SPECIMENOrdering Facility: [facility] Address:[address] [place], [place] [address]Performed By: #### 10747-6, 22452-6, 2323-07 ####[facility] LABCLIA [id number] [place] [id number] [place] AMERICAGGT SerPl-cCncon 34-94-3968Fmkur glutamyl transferase [Catalytic activity/Vol]136 U/DNrks74-07KrgxfnhgzPrem[facility] Health [facility] on above:Order Comment: Specimen Type: BLOOD SPECIMENOrdering Facility: [facility] Address:[address] [place], [place] [address]Performed By: #### 40387-2, , 2323-07 ####[facility] LABCLIA [id number] VILLE [id number] [facility]MONTGOMERYLDH Fld-cCncon 23-07-8486YAX (Body fld) [Catalytic activity/Vol]110 U/LNormalSee CommentPremier Health Miami Valley Hospital on above: Order Comment: Specimen Type: SPECIMEN FROM PLEURA OBTAINED BY THORACENTESISOrdering Facility: [facility] Address: [address] [place], [place] [address]Result Comment: Pleural fluids: Pleural fluid lactate dehydrogenase [...] document C49A. Hao, [place]: Clinical Laboratory Standards [place]: 2007.Reference: 2. Rafael STARK, Fei Doyle. Body fluid analysis: clinical utility and applicability of published studies to guide interpretation of today's laboratory testing in serous fluids. Crit Rev Clin Lab Sci, 2013:50(4,5):107 to 124.Reference: 3. Flaca Najera, Dougie Doyle, [place] STARK. Lactate dehydrogenase activity and its isoenzymes in serum and synovial fluid of patients with rheumatoid arthritis and osteoarthritis. J Rheumatol. 1992:19:529 to 533.Performed By: #### 2529-6, 2881-1 ####[facility] LABCLIA [id number] [place] [address] [place] AMERICAMagnesium SerPl-mCncon 67-59-0234Ojwpnjtkq [Mass/Vol]2.2 mg/dLNormal 1.7-2.3ClevelTrinity Health System East Campus on above:Order Comment: Specimen Type: BLOOD SPECIMENOrdering Facility: [facility] Address:[address] [place], [place] [address]Performed By: #### 89025-2, 45683-3, 2324-2 ####[facility] LABCLIA [id number] [address] [place] AMERICAOPERATIVE NOon 10-14-2024 OPERATIVE NONormalTrihealth Bethesda Butler HospitalProt Fld-mCncon 82-12-9016Ylwjcks (Body fld) [Mass/Vol]2.5 g/dLNormalSee CommentPremier Health [facility] Hospital on above:Order Comment: Specimen Type: SPECIMEN FROM PLEURA OBTAINED BY THORACENTESISOrdering Facility: [facility] Address: [address] [place], [place] [address]Result Comment: Serous fluids: Effusions are the accumulation of clinically detected fluid in any of the serous cavities. Effusions are further into transudates and exudates, which aid in de termining the etiology of the effusion.Transudate: Body fluid [...] document C49A. RAJEEV Bui: Clinical Laboratory Standards [place]: 2007.Performed By: #### 2529-6, 2881-1 ####[facility] LABCLIA [id number] BRIELLE DOHERTY [place] [id number] [place] AMERICAUS Chest limitedon 09-37-1754Conyaonks Study observation (narrative)[facility] CenterXR CHEST 2V FRONTAL/LATon 55-92-3484BD CHEST 2V FRONTAL/LATNormalCUniversity Hospitals Parma Medical CenterXR Chest PA and Lateralon 73-88-4521WJYKOUNJAR: 1. Small located/partially loculated right pleural effusion, slightly bigger since 08/13/24, status post right chest tube placement. 2. Left lung remains clear. Transcribe Date/Time: Oct 13 2024 3:12P Dictated by: KARYN BOOTH MD This examination was interpreted and the report reviewed and electronically signed by: KARNY BOOTH MD on Oct 13 2024 3:24PM EST Thank you for allowing us to participate in the care of your patient. Should there be any questions regarding this interpretation, please call [phone]. If you are unable to reach us at the number above, please feel free to contact [facility] eRadiology at [phone].DIVISION OF RADIOLOGY* * *Final Report* * * DATE OF [...] Bones and soft tissues: Unremarkable. DIVISION OF RADIOLOGYProvider, [facility] [place] - 10/13/2024 * * *Final Report* * [...] any questions regarding this interpretation, please call [phone]. If you are unable to reach us at the number above, please feel free to contact [facility] eRadiology at [phone]. [facility] CenterRadiology Study observation (narrative)[facility] CenterXR Chest PA and LateralOrdered By: Ccf Provider on 25-33-3641Rtywsytio ClinicCNPNon 21-04-1270SNDWYamrqmFkxloswgtMemorial HospitalBRIEF OP NOTon 78-39-1185IWFSJ OP NOTNormalCUniversity Hospitals Parma Medical CenterCNPNon 68-45-4992QUDXQtcamqGejchigwiMemorial HospitalANES POSTPROC EVALon 91-16-1744WNIQ POSTPROC EVALNormalCUniversity Hospitals Parma Medical CenterANES PRE-OPon 95-65-4760FDIN PRE-OPNormalTrihealth Bethesda Butler HospitalEGD Study observation Narrativeon 06-73-9320Remopanhv ClinicRadiology Study observation (narrative)[facility] CenterHISTORY PHYSICALon 60-32-3699GVCXYKX PHYSICALNormalCUniversity Hospitals Parma Medical CenterNURSING PROGon 44-56-5649BPDNHHD PROG NormalTrihealth Bethesda Butler HospitalNURSING PROGNormalTrihealth [facility] Pathology biopsy report Abhijit (Tiss)on 42-01-2633PFXJQXPD 1:NormalPremier Health [facility] on above:Order Comment: Specimen Type: TISSUE SPECIMENOrdering Facility: [facility] Address: [address] [place], [place] [address]Result Comment: Addendum is issued to reflect the result of immunohistochemical stain:- Immunostainfor H. pylori is negative in part A.Addendum electronically signed by Simba Frias MD, PhD on 10/01/2024 at 1725 EDTPerformed By: #### 60869-9 ####[facility] LABIA [id number] [address] [address] [facility] AP DISCLAIMERNoHarrison Community Hospital on above:Order Comment: Specimen Type: TISSUE SPECIMENOrdering Facility: [facility] Address: [address] [place], [place] [address]Result Comment: Laboratory Developed Test (LDT) Disclaimer:Performance characteristics of immunohist ochemical, immunofluorescent, and chromogenic in-situ hybridization tests have been determined by the performing laboratory within [facility]'s [facility] Pathology and Laboratory Medicine Department ([facility], [facility], [facility], [facility], [facility], [facility], or [facility]) in a manner consistent with CLIA requirements. One or more of these tests may not have been cleared or approved by the FDA. [facility] is regulated under CLIA as qualified to perform high-complexity testing. These tests are used for clinical purposes. These should not be regarded as investigational or for research. Positive and negative controls stain appropriately.Performed By: #### 02029-9 ####[facility] LABIA [id number] [address] [address] [facility] HOSPITALCASE REPORTNormAvita Health System on above:Order Comment: Specimen Type: TISSUE SPECIMENOrdering Facility: [facility] Address: [address] [place], [place] [address]Result Comment: Surgical Pathology Report Case: [id number] Provider: Shay Dennis MD Collected: 09/25/2024 11:32 AMOrdering Location: Gastroenterology Received: 09/25/2024 04:32 PMPathologist: Sibma Frias MD, PhDSpecimen: Stomach, Biopsy, R/O: H. PyloriPerformed By: #### 49256-2 ####[facility] LABCLIA [id number] [address] [place] [address] [facility]–MONTGOMERYFINAL DIAGNOSISAvita Health System on above:Order Comment: Specimen Type: TISSUE SPECIMENOrdering Facility: [facility] Address: [address] [place], [place] [address]Result Comment: A. Stomach, biopsy:- Chronic focally active gastritis and reactive gastropathy in antral and oxyntic mucosa.- Negative for intestinal metaplasia or dysplasia.- H. pylori immunostain will be reported as an addendum. at 1344 EDTPerformed By: #### 80118-4 ####[facility] LABCLIA [id number] [address] [place] [address] [facility] FINAL [facility] on above:Order Comment: Specimen Type: TISSUE SPECIMENOrdering Facility: [facility] Address: [address] [place], [place] [address]Result Comment: Diagnostic interpretation performed at: [facility], [address] [place] [address], [address] [address] CLIA# [id number] Director: RAYRAY Thompsonerformed By: #### 74120-8 ####[facility] LABCLIA [id number] [address] [place] [address] [facility]–MONTGOMERYGROSS DESCRIPTIONAvita Health System on above:Order Comment: Specimen Type: TISSUE SPECIMENOrdering Facility: [facility] Address: [address] [place], [place] [address]Result Comment: A. Stomach, BiopsyReceived in formalin are multiple pieces of de la garza, soft tissue aggregating to 1.9 x 0.3 x 0.2 cm. Totally submitted in one cassette.Gross examination performed at [facility], [address] [place] [id number] September 25, 2024 6:03 PMPerformed By: #### 97727-7 ####[facility] LABCLIA [id number] [facility] COUNTYDESK S52WBGXMRZFTSARA V[place] [id number] [place] OF AMERICAUpper GI endoscopyon 13-76-9997Cutdx GI endoscopyNormalCUniversity Hospitals Parma Medical CenterCNPNon 09-23-2024 CNPNNormalTrihealth Bethesda Butler HospitalNURSING PROGon 90-22-6529LUXRLWU PROGNormal [facility] HospitalCNon 04-25-1347BJXTXrkowoDuojppkwh Clinic [facility] Basic metabolic 2000 panelon 34-33-1148Mvsfi gap [Moles/Vol]13 mmol/LNormal8-15 [facility] HospitalComascension borgess allegan [facility] on above:Order Comment: Specimen Type: BLOOD SPECIMENOrdering Facility: [facility] Address:[address] [place], [place] [address]Performed By: #### 77904-3 ####[facility] LABCLIA [id number] [place], [place] [address]Lhxgzbi [Mass/Vol]9.2 mg/dLNormal8.5-10.2CTriHealth Bethesda North Hospital on above: Order Comment: Specimen Type: BLOOD SPECIMENOrdering Facility: [facility] Address:[address] [place], [place] [address]Performed By: #### 48432- 2 ####[facility] LABCLIA [id number] [place], [place] [address]Bmuotblx [Moles/Vol]100 mmol/BXfizan21-697LhlierlhtPremier Health [facility] on above:Order Comment: Specimen Type: BLOOD SPECIMENOrdering Facility: [facility] Address:[address] [place], [place] [address]Performed By: #### 15472-7 ####[facility] LABCLIA [id number] [place], [place] [address]VZ3 [Moles/Vol] 24 mmol/QXtmgud69-26LffmkqiciPremier Health [facility] Hospital on above:Order Comment: Specimen Type: BLOOD SPECIMENOrdering Facility: [facility] Address:[address] [place], [place] [address]Performed By: #### 75427-5 ####[facility] LABCLIA [id number] [facility] [place], [place] [address]Iehvfsuang [Mass/Vol]1.71 mg/dLHigh0.73-1.22[facility] on above:Order Comment: Specimen Type: BLOOD SPECIMENOrdering Facility: [facility] Address:[address] [place], [place] [address]Performed By: #### 27828-8 ####[facility] LABCLIA [id number] [place], [place] [address]Dptedsvjmg and Glomerular filtration rate.predicted panel (S/P/Bld)42 mL/min/1.73m???Low>=60 [facility] on above:Order Comment: Specimen Type: BLOOD SPECIMENOrdering Facility: [facility] Address:[address] [place], [place] [address]Result Comment: Estimated Glomerular Filtration Rate (eGFR) is calculated using the 2020 CKD-EPI creatinine equation. This equation utilizes serum creatinine, sex, and age as parameters. The creatinine assay has traceable calibration to isotope dilution-mass spectrometry. Refer to KDIGO guidelines for clinical interpretation. In patients with unstable renal function, e.g. those with acute kidney injury, the eGFR may not accurately reflect actual GFR.Performed By: #### 30877-1 ####[facility] LABCLIA [id number] [place], [place] [address]Rxgpboc [Mass/Vol]107 mg/pJWvyo59-75CumxrehmiPremier Health Miami [facility] Hospital on above:Order Comment: Specimen Type: BLOOD SPECIMENOrdering Facility: [facility] Address:[address] [place], [place] [address]Result Comment: The [place] [employer] (ADA) provides guidance for cutoff values for fast ing glucose and random glucose. The ADA defines fasting as no caloric intake for at least 8 hours. Fasting plasma glucose results between 100 to 125 mg/dL indicate increased risk for diabetes (prediabetes).Fasting plasma glucose results greater than or equal to 126 mg/dL meet the criteria for diagnosis of diabetes. In the absence of unequivocal hyperglycemia, results should be confirmed by repeattesting. In a patient with classic symptoms of hyperglycemia or hyperglycemic crisis, random plasmaglucose results greater than or equal to 200 mg/dL meet the criteria for diagnosis of diabetes.Reference: Standards of Medical Care in Diabetes 2016, [place] [employer]. Diabetes Care. 2016.39(Suppl 1).Performed By: #### 25122-3 ####[facility] LABCLIA [id number] [place], [place] [address]Rkdfouctz [Moles/Vol]4.9 mmol/LNormal3.7-5.1CTriHealth [facility] on above: Order Comment: Specimen Type: BLOOD SPECIMENOrdering Facility: [facility] Address:[address] [place], [place] [address]Performed By: #### 31010- 2 ####[facility] LABIA [id number] [place], [place] [address]Lwvfva [Moles/Vol]137 mmol/WJcqedx159-963QgsuzkdhzPremier Health [facility] on above:Order Comment: Specimen Type: BLOOD SPECIMENOrdering Facility: [facility] Address:[address] [place], [place] [address]Performed By: #### 58988-4 ####[facility] LABCLIA [id number] [place], [place] [address]Dmdi nitrogen [Mass/Vol]53 mg/dLHigh9-24[facility] on above:Order Comment: Specimen Type: BLOOD SPECIMENOrdering Facility: [facility] Address:[address] [place], [place] [address]Performed By: #### 75362-4 ####[facility] LABCLIA [id number] [place] [address] CBC panel Auto (Bld)on 08-28-6807Zmzshvzmjau distribution width (RBC) [Ratio] 15.8 %High11.5-15.0[facility] on above:Order Comment: Specimen Type: BLOOD SPECIMENOrdering Facility: [facility] Address:[address] [place], [place] [address]Performed By: #### 31281-8 ####[facility] LABCLIA [id number] [place], [place] [address]Laqsomtbef (Bld) [Volume fraction]37.8 %Low39.0-51.0 [facility] on above:Order Comment: Specimen Type: BLOOD SPECIMENOrdering Facility: [facility] Address:[address] [place], [place] [address]Performed By: #### 40723-8 ####[facility] LABCLIA [id number] [place], [place] [address]Olrsuqsiyy (Bld) [Mass/Vol]12.0 g/dLLow13.0-17.0[facility] on above:Order Comment: Specimen Type: BLOOD SPECIMENOrdering Facility: [facility] Address:[address] [place], [place] [address]Performed By: #### 90699- 2 ####[facility] LABCLIA [id number] [place], [place] [address]OXN (RBC) [Entitic mass]31.3 nbXfgdvu56.0-34.0[facility] on above:Order Comment: Specimen Type: BLOOD SPECIMENOrdering Facility: [facility] Address:[address] [place], [place] [address]Performed By: #### 32856-7 ####[facility] LABCLIA [id number] [place], [place] [address]URZP (RBC) [Mass/Vol]31.7 g/cBVbfldq96.5-36.0[facility] on above: Order Comment: Specimen Type: BLOOD SPECIMENOrdering Facility: [facility] Address:[address] [place], [place] [address]Performed By: #### 82176- 2 ####[facility] LABCLIA [id number] [place], [place] [address]QCT (RBC) [Entitic vol]98.4 qHCmqbad00.0-100.0[facility] on above:Order Comment: Specimen Type: BLOOD SPECIMENOrdering Facility: [facility] Address:[address] [place], [place] [address]Performed By: #### 64527-4 ####[facility] LABIA [id number] [place], [place] [address]Nleunxoaq RBC (Bld) [#/Vol]10*3/uLNormal<0.01[facility] on above:Order Comment: Specimen Type: BLOOD SPECIMENOrdering Facility: [facility] Address:[address] [place], [place] [address]Performed By: #### 38126- 2 ####[facility] LABIA [id number] [place], [place] [address]Zlpuqwwg mean volume (Bld) [Entitic vol]9.9 fLNormal 9.0-12.7CTriHealth [facility]hesda [facility] on above:Order Comment: Specimen Type: BLOOD SPECIMENOrdering Facility: [facility] Address:[address] [place], [place] [address]Performed By: #### 37511-7 ####[facility] LABIA [id number] [place], [place] [address]Joqnodksl (Bld) [#/Vol]250 10*3/zWFpcjyl124-774HpyugpcnqPremier Health [facility] on above: Order Comment: Specimen Type: BLOOD SPECIMENOrdering Facility: [facility] Address:[address] [place], [place] [address]Performed By: #### 51376- 2 ####[facility] LABCLIA [id number] [place], [place] [address]KZG (Bld) [#/Vol]3.84 10*6/uLLow4.20-6.00[facility] on above:Order Comment: Specimen Type: BLOOD SPECIMENOrdering Facility: [facility] Address:[address] [place], [place] [address]Performed By: #### 76759-4 ####[facility] LABCLIA [id number] [place], [place] [address]BVX (Bld) [#/Vol]11.59 10*3/uL High3.70-11.00[facility] on above:Order Comment: Specimen Type: BLOOD SPECIMENOrdering Facility: [facility] Address:[address] [place], [place] [address]Performed By: #### 62681-4 ####[facility] LABIA [id number] [place] [address] CNPNon 12-99-1284VCJAIdtqhzJmcdfgxcz Clinic ClevelandOPERATIVE NOon 09-04-2024 OPERATIVE NONormalTrihealth Bethesda Butler HospitalComprehensive metabolic 2000 panelon 13-08-2709Uwwnnah [Mass/Vol]4.1 g/dLNormal3.9-4.9CUniversity [facility] Comment on above:Order Comment: Specimen Type: BLOOD SPECIMENOrdering Facility: [facility] Address:[address] [place] [address] Performed By: #### 18143-7, 67245-3 ####[facility] LABIA [id number] [place], [place] [address]XZO [Catalytic activity/Vol]140 U/TOcde13-749PhjqfmvahPremier Health [facility] on above:Order Comment: Specimen Type: BLOOD SPECIMENOrdering Facility: [facility] Address:[address] [place], [place] [address]Performed By: #### 72031- 9, 83514-8 ####[facility] LABCLIA [id number] [facility] [place], [place] [address]PCS [Catalytic activity/Vol]12 U/UVocmnh24-32 [facility] on above:Order Comment: Specimen Type: BLOOD SPECIMENOrdering Facility: [facility] Address:[address] [place], [place] [address]Performed By: #### 82613-5, 50483-8 ####[facility] LABCLIA [id number] [place], [place] [address]Oqgpe gap [Moles/Vol]18 mmol/LHigh8-15[facility] on above:Order Comment: Specimen Type: BLOOD SPECIMENOrdering Facility: [facility] Address:[address] [place], [place] [address]Performed By: #### 06641- 9, 08259-0 ####[facility] LABCLIA [id number] [place], [place] [address]CWK [Catalytic activity/Vol]27 U/IPlddtc67-12 [facility] on above:Order Comment: Specimen Type: BLOOD SPECIMENOrdering Facility: [facility] Address:[address] [place], [place] [address]Performed By: #### 25451-3, 58735-0 ####[facility] LABCLIA [id number] [place] [address] Bilirubin [Mass/Vol]0.6 mg/dLNormal0.2-1.3CTriHealth [facility]hes[facility] on above:Order Comment: Specimen Type: BLOOD SPECIMENOrdering Facility: [facility] Address:[address] [place], [place] [address]Performed By: #### 88689-5, 20766-3 ####[facility] LABCLIA [id number] [place], [place] [address]Vamiijb [Mass/Vol]9.1 mg/dLNormal8.5-10.2 [facility] on above:Order Comment: Specimen Type: BLOOD SPECIMENOrdering Facility: [facility] Address:[address] [place], [place] [address]Performed By: #### 33474-0, 68424-9 ####[facility] LABCLIA [id number] [place], [place] [address]Pwcgdocj [Moles/Vol]96 mmol/YXyp52-396NklesdjiiPremier Health [facility] Hospital on above:Order Comment: Specimen Type: BLOOD SPECIMENOrdering Facility: [facility] Address:[address] [place], [place] [address]Performed By: #### 32024- 9, 92489-6 ####[facility] LABCLIA [id number] [place], [place] [address]QJ7 [Moles/Vol]28 mmol/UUvsnwh95-09PnphevjstPremier Health [facility] Hospital on above:Order Comment: Specimen Type: BLOOD SPECIMENOrdering Facility: [facility] Address:[address] [place], [place] [address]Performed By: #### 46998-4, 02517-8 ####[facility] LABCLIA [id number] [place], [place] [address]Vrsxksbyrs [Mass/Vol] 1.72 mg/dLHigh0.73-1.22[facility] on above:Order Comment: Specimen Type: BLOOD SPECIMENOrdering Facility: [facility] Address:[address] [place], [place] [address]Performed By: #### 00739-0, 11792-3 ####[facility] LABCLIA [id number] [place], [place] [address]Xlxleavyss and Glomerular filtration rate.predicted panel (S/P/Bld)41 mL/min/1.73m???Low>=60[facility] on above: Order Comment: Specimen Type: BLOOD SPECIMENOrdering Facility: [facility] Address:[address] [place], [place] [address]Result Comment: Estimated Glomerular Filtration Rate (eGFR) is calculated using the 2020 CKD-EPI cre atinine equation. This equation utilizes serum creatinine, sex, and age as parameters. The creatinine assay has traceable calibration to isotope dilution- mass spectrometry. Refer to KDIGO guidelines for clinical interpretation. In patients with unstable renal function, e.g. those with acute kidney injury, the eGFR may not accurately reflect actual GFR.Performed By: #### 26004-3, 67980-9 ####[facility] LABCLIA [id number] [place], [place] [address]Qwxklpg [Mass/Vol]189 mg/iOXblw81-55IympaqlvvPremier Health [facility] on above:Order Comment: Specimen Type: BLOOD SPECIMENOrdering Facility: [facility] Address:[address] [place], [place] [address]Result Comment: The [place] [employer] (ADA) provides guidance for cutoff values for fasting glucose and random glucose. The ADA defines fasting as no caloric intake for at least 8 hours. Fasting plasma glucose results between 100 to 125 mg/dL indicate increased risk for diabetes (prediab etes).Fasting plasma glucose results greater than or equal to 126 mg/dL meet the criteria for diagnosis of diabetes. In the absence of unequivocal hyperglycemia, results should be confirmed by repeattesting. In a patient with classic symptoms of hyperglycemia or hyperglycemic crisis, random plasmaglucose results greater than or equal to 200 mg/dL meet the criteria for diagnosis of diabetes.Reference: Standards of Medical Care in Diabetes 2016, [place] [employer]. Diabetes Care. 2016.39(Suppl 1).Performed By: #### 30148- 9, 18109-4 ####[facility] LABCLIA [id number] [place], [place] [address]Nrgwuojux [Moles/Vol]3.1 mmol/LLow3.7-5.1CTriHealth [facility]hesda [facility] on above:Order Comment: Specimen Type: BLOOD SPECIMENOrdering Facility: [facility] Address:[address] [address]Performed By: #### 98039-1, 45510-2 ####[facility] LABCLIA [id number] [place], [place] [address]Mobobkf [Mass/Vol]7.4 g/dLNormal6.3-8.0[facility] on above:Order Comment: Specimen Type: BLOOD SPECIMENOrdering Facility: [facility] Address:[address] [place], [place] [address]Performed By: #### 96040- 9, 82300-1 ####[facility] LABCLIA [id number] [place], [place] [address]Bbbusa [Moles/Vol]142 mmol/PNykhib062-961QhwgvnhwwPremier Health [facility] on above:Order Comment: Specimen Type: BLOOD SPECIMENOrdering Facility: [facility] Address:[address] [place], [place] [address]Performed By: #### 11413-8, 38524-3 ####[facility] LABCLIA [id number] [place], [place] [address]Feyh nitrogen [Mass/Vol]45 mg/dLHigh9-24[facility] on above: Order Comment: Specimen Type: BLOOD SPECIMENOrdering Facility: [facility] Address:[address] [place], [place] [address]Performed By: #### 39023- 9, 38624-8 ####[facility] LABCLIA [id number] [place], [place] [address]Lilhhjnfvt - Chemistry and Chemistry - challengeon 27-69-0704Digozwp [Mass/Vol]4.1 g/dL3.9-4.9Ber[facility] HospitalALP [Catalytic activity/Vol]140 U/IHdoa80-829MesjckoqhBerger HospitalALT [Catalytic activity/Vol]12 U/M85-69MhhwphqdlBerger HospitalAST [Catalytic activity/Vol]27 U/K74-14UkrbqvbbmBerger HospitalBilirubin [Mass/Vol]0.6 mg/dL0.2-1.3FPremier Health Miami Valley Hospital SouthCalcium [Mass/Vol]9.1 mg/dL8.5-10.2FPremier Health Miami Valley Hospital SouthChloride [Moles/Vol]96 mmol/LLow 98-107Ber[facility] HospitalCO2 [Moles/Vol]28 mmol/V35-24TqfwqbeozBerger HospitalCreatinine [Mass/Vol]1.72 mg/dLHigh0.73-1.22Ber[facility] HospitalGlucose [Mass/Vol]189 mg/wXYrvc05-07MihwrzinaBerger HospitalComment on above:The [place] Diabetes Association (ADA) provides guidance for cutoff values for fasting glucose andrandom glucose. The ADA defines fasting as no caloric intake for at least 8 hours. Fasting plasma gl ucose results between 100 to 125 mg/dL indicate increased risk for diabetes (prediabetes).Fasting plasma glucose results greater than or equal to 126 mg/dL meet the criteria for diagnosis of diabetes. In the absence of unequivocal hyperglycemia, results should be confirmed by repeat testing. In a patient with classic symptoms of hyperglycemia or hyperglycemic crisis, random plasma glucose resultsgreater than or equal to 200 mg/dL meet the criteria for diagnosis of diabetes.Reference: Standardsof Medical Care in Diabetes 2016, [place] [employer]. Diabetes Care. 2016.39(Suppl 1).Magnesium [Mass/Vol]2.2 mg/dL 1.7-2.3FPremier Health Miami Valley Hospital SouthPotassium [Moles/Vol]3.1 mmol/LLow 3.7-5.1FRegional Medical Centerodium [Moles/Vol]142 mmol/F736-471 Berger HospitalUrea nitrogen [Mass/Vol]45 mg/dLHigh9-24 Berger HospitalMagnesium SerPl-mCncon 55-19-0726Wpdsyubpo [Mass/Vol]2.2 mg/dLNormal1.7-2.3CUniversity Hospitals Parma Medical CenterComment on above:Order Comment: Specimen Type: BLOOD SPECIMENOrdering Facility: [facility] Address:[address] [place] [address]Jyuzzrtgz By: #### 45681- 9, 24792-6 ####[facility]ITALYARELI [facility] LABCLIA [id number] [place], [place] [address]Yt Panel Informationon 74-19-5702Wwrcgxvef GFR (CKD-EPI)41 mL/min/1.73m???Low>=60Berger HospitalComment on above:Estimated Glomerular Filtration Rate (eGFR) is calculated using the 2020 CKD-EPI creatinine equation. This equation utilizes serum creatinine, sex, and age as parameters. The creatinine assay has traceable calibration to isotope dilution-mass spectrometry. Refer to KDIGO guidelines for clinical inte rpretation. In patients with unstable renal function, e.g. those with acute kidney injury, the eGFRmay not accurately reflect actual GFR.Protein [Mass/volume] in Serum or Plasmaon 24-64-2007Qgrqona [Mass/Vol]Protein [Mass/volume] in Serum or Plasma6.3-8.0[facility] Hospitalerum or plasma anion gap determinationon 48-10-6516Dpfau gap [Moles/Vol]Serum or plasma anion gap determinationHigh8-15Ber[facility] HospitalCNPNon 70-59-5650TVLNYjqnpxFqevrblbl Clinic ClevelandBasophils Auto (Bld) [#/Vol]on 47-54-3658Ccyznnroj (Bld) [#/Vol]Automated basophil count0.0-0.1FPremier Health Miami Valley Hospital SouthBasophils/100 WBC Auto (Bld)on 81-63-5225Dmoqxmcns/100 WBC (Bld)Automated basophil %0.2-2.0[facility] Eosinophils/100 WBC Auto (Bld)on 52-47-6856Rfbopudlknf/100 WBC (Bld)Automated eosinophil %Low0.9-7.0Ber[facility] HospitalErythrocyte distribution width Auto (RBC) [Ratio]on 43-71-3193Abfztyyenhj distribution width (RBC) [Ratio]Erythrocyte distribution width [Ratio] by Automated cutouTkwd72.0-15.0 [facility] HospitalEstimated glomerular filtration rate (GFR) non- Americanon 16-87-1844LQM/1.73 sq M.predicted among non-blacks MDRD (S/P/Bld) [Vol rate/Area]Estimated glomerular filtration rate (GFR) non- AmericanLow>=60 mL/min/1.73m 2FPremier Health Miami Valley Hospital SouthGlobulin Calc (S) [Mass/Vol]on 14-77-8487Abmojouu (S) [Mass/Vol]Serum globulin measurement by calculation (mass/volume)Ber[facility] HospitalHematocrit Auto (Bld) [Volume fraction]on 37-42-5455Rmtgqthjbk (Bld) [Volume fraction]Hematocrit [Volume Fraction] of Blood by Automated jqsfnYwl37.0-54.0Ber[facility] HospitalHemoglobin [Mass/volume] in Bloodon 66-90-4643Pkehozvrnc (Bld) [Mass/Vol]Hemoglobin [Mass/volume] in DwmdkPbz54.0-18.0[facility] HospitalLaboratory - Chemistry and Chemistry - challengeon 08-31-2024 Potassium [Moles/Vol]3.4 mmol/LLow3.5-5.1FPremier Health Miami [facility] Hospital South Albumin [Mass/Vol]3.3 g/dLLow3.4-5.0[facility] HospitalALP [Catalytic activity/Vol]130 U/SBvwx66-798XmzbzrsgvBerger HospitalALT [Catalytic activity/Vol]13 U/HOwg09-88ZbritqywyBerger HospitalAST [Catalytic activity/Vol]25 U/D86-84DlprbokpdBerger HospitalBilirubin [Mass/Vol]0.7 mg/dL0.2-1.0Ber[facility] HospitalCalcium [Mass/Vol]9.0 mg/dL8.5-10.1FPremier Health Miami Valley Hospital SouthChloride [Moles/Vol]101 mmol/L 98-107Ber[facility] HospitalCO2 [Moles/Vol]34.5 mmol/LHigh21.0-32.0 [facility] HospitalCreatinine [Mass/Vol]1.68 mg/dLHigh0.70-1.30 [facility] HospitalGFR/1.73 sq M.predicted MDRD (S/P/Bld) [Vol rate/Area]49 mL/min/{1.73_m2}Low>=60 mL/min/1.73m 2FPremier Health Miami Valley Hospital SouthGlucose [Mass/Vol]113 mg/jCQvza69-580KjenbaiufBerger Hospital Magnesium [Mass/Vol]2.2 mg/dL1.8-2.4FPremier Health Miami Valley Hospital SouthProtein [Mass/Vol]7.7 g/dL6.4-8.2FRegional Medical Centerodium [Moles/Vol]143 mmol/P967-834RdorcetieBerger HospitalUrea nitrogen [Mass/Vol]48.0 mg/dL High7.0-18.0Berger HospitalUrea nitrogen/Creatinine [Mass ratio]28.6 mg/mgBerger HospitalLaboratory - Hematology and Cell countson 04-59-5704Apiftjtr granulocytes/100 WBC (Bld)0.5 %0.0-0.5FPremier Health Miami Valley Hospital SouthLeukocytes [#/volume] corrected for nucleated erythrocytes in Blood by Automated counon 87-34-1014VZA corrected for nucl RBC Auto (Bld) [#/Vol]Leukocytes [#/volume] corrected for nucleated erythrocytes in Blood by Automated coun4.0-11.0Berger HospitalLymphocytes Auto (Bld) [#/Vol]on 21-36-9261Rwongofmtth (Bld) [#/Vol]Lymphocytes [#/volume] in Blood by Automated countLow1.2-3.8[facility] Lymphocytes/100 WBC Auto (Bld)on 17-22-7909Thziksofehx/100 WBC (Bld) Lymphocytes/100 leukocytes in Blood by Automated zxmdwOrh76.5-60.0[facility] HospitalH Auto (RBC) [Entitic mass]on 32-33-7000DIU (RBC) [Entitic mass]MCH [Entitic mass] by Automated count25.9-34.0Berger HospitalMCHC Auto (RBC) [Mass/Vol]on 99-21-8351QYFQ (RBC) [Mass/Vol]MCHC [Mass/volume] by Automated count29.9-35.2FPremier Health Miami Valley Hospital SouthMCV Auto (RBC) [Entitic vol]on 87-51-9891GHS (RBC) [Entitic vol]MCV [Entitic volume] by Automated vagczJggj94.0-94.0Berger HospitalMonocytes Auto (Bld) [#/Vol]on 68-31-0762Kulqwakeg (Bld) [#/Vol]Automated blood monocyte count High0.3-0.8Berger HospitalMonocytes/100 WBC Auto (Bld)on 07-83-0805Smisoxgwu/100 WBC (Bld)Automated monocyte %High1.7-12.0Berger HospitalNeutrophils Auto (Bld) [#/Vol]on 74-70-3376Bymwmmppvbk (Bld) [#/Vol]Neutrophils [#/volume] in Blood by Automated count1.4-6.5FPremier Health Miami Valley Hospital SouthNeutrophils/100 WBC Auto (Bld)on 08-31-2024 Neutrophils/100 WBC (Bld)Automated neutrophil %43.0-75.0Berger HospitalNo Panel Informationon 17-10-0578Wddacjgbbfh # (Auto)0.0 10 3/uL 0.0-0.7FPremier Health Miami Valley Hospital SouthImmature Granulocyte # (Auto)0.03 10 3/uL0.00-0.03Berger HospitalPlatelet mean volume Auto (Bld) [Entitic vol]on 11-91-8618Ccmbqchk mean volume (Bld) [Entitic vol]Platelet mean volume [Entitic volume] in Blood by Automated count9.5-13.5FPremier Health Miami Valley Hospital SouthPlatelets Auto (Bld) [#/Vol]on 73-23-8464Mmsttypcq (Bld) [#/Vol] Platelets [#/volume] in Blood by Automated ksawq428-759AwdgbugpkBerger HospitalRBC Auto (Bld) [#/Vol]on 92-02-9989DPE (Bld) [#/Vol]Erythrocytes [#/volume] in Blood by Automated countLow4.70-6.10[facility] Hospitalerum or plasma albumin/globulin mass ratioon 90-46-9079Mbxcnra/Globulin [Mass ratio]Serum or plasma albumin/globulin mass ratioAvita Health System Bucyrus Hospitalerum or plasma anion gap determinationon 29-72-5301Nybxg gap [Moles/Vol]Serum or plasma anion gap determinationBerger HospitalActivated partial thromboplastin time (aPTT) in platelet poor plasma by coagulation aon 69-07-0201cXWF Coag (PPP) [Time]Activated partial thromboplastin time (aPTT) in platelet poor plasma by coagulation a22.3-36.2FPremier Health Miami Valley Hospital SouthBasophils Auto (Bld) [#/Vol]on 83-38-1316Znmzciqdv (Bld) [#/Vol] Automated basophil count0.0-0.1FPremier Health Miami Valley Hospital SouthBasophils/100 WBC Auto (Bld)on 47-63-4578Pgeubtpkj/100 WBC (Bld)Automated basophil %0.2-2.0 [facility] HospitalEosinophils/100 WBC Auto (Bld)on 08-30-2024 Eosinophils/100 WBC (Bld)Automated eosinophil %Low0.9-7.0Ber[facility] HospitalErythrocyte distribution width Auto (RBC) [Ratio]on 08-30-2024 Erythrocyte distribution width (RBC) [Ratio]Erythrocyte distribution width [Ratio] by Automated ycxvfGras51.0-15.0[facility] Hematocrit Auto (Bld) [Volume fraction]on 93-28-2532Rcdemwshqc (Bld) [Volume fraction]Hematocrit [Volume Fraction] of Blood by Automated aelodRcn17.0-54.0 [facility] HospitalHemoglobin [Mass/volume] in Bloodon 08-30-2024 Hemoglobin (Bld) [Mass/Vol]Hemoglobin [Mass/volume] in GqlywGca73.0-18.0 [facility] HospitalINR in Platelet poor plasma by Coagulation assayon 18-55-2679LWX Coag (PPP) [Relative time]INR in Platelet poor plasma by Coagulation assayBerger HospitalComment on above:DESIRED INR:2.0-3.0 CONDITIONS NOT LISTED BELOW2.5-3.5 FOR PROSTHETIC HEART VALVE REPLACEMENT2.5-3.5 RECURRENT THROMBOSISLaboratory - Chemistry and Chemistry - challengeon 01-10-5736Ghopvuqmq Ql (U)NegativeNEGATIVEBerger HospitalGlucose (U) [Mass/Vol]NegativeNEGATIVEBerger Hospital Ketones Ql (U)NegativeNEGPremier HealthpH (U)6.5 [pH] 5.0-9.0[facility] Hospitalpecific gravity (U) [Rel density] <=1.469Bnkbymrn6.005-1.025Berger HospitalUrobilinogen Qn (U) 0.2 {Guido'U}/dL0.2-1.0[facility] Medical CenterNatriuretic peptide B (Bld) [Mass/Vol]239.0 pg/mL<=900.0Berger HospitalLaboratory - Hematology and Cell countson 50-06-6769Ptilbchz granulocytes/100 WBC (Bld)0.5 % 0.0-0.5FOhioHealth Grove City Methodist Hospitaloratory - Microbiology and Antimicrobial susceptibilityon 57-55-7118RKSI-CoV-2 (COVID-19) RNA BRYN+probe Ql (Unsp spec)NegativeNEGATIVEBerger HospitalComment on above: This test has not been FDA cleared or approved, but has beenauthorized [...] the declaration isterminated or authorization is revoked sooner.Laboratory - Specimen informationon 30-37-6340Aitglkeedv (U)CLEARCLEWilson Memorial HospitalColor (U)LT. YELLOWYELLOWBerger HospitalLaboratory - Urinalysison 17-65-3494Kwjmiuqxk esterase Test strip Ql (U)NegativeNEGATIVE Berger HospitalMucus Ql (Urine sed)NONE SEENNONE SEENBerger HospitalNitrite Ql (U)NegativeNEGATIVEBerger HospitalProtein Ql (U)NegativeNEG/TRACEBerger Hospital Leukocytes [#/volume] corrected for nucleated erythrocytes in Blood by Automated counon 23-56-4174UGB corrected for nucl RBC Auto (Bld) [#/Vol]Leukocytes [#/volume] corrected for nucleated erythrocytes in Blood by Automated coun 4.0-11.0Berger HospitalLymphocytes Auto (Bld) [#/Vol]on 96-19-1988Tdwomqjcuwu (Bld) [#/Vol]Lymphocytes [#/volume] in Blood by Automated count1.2-3.8Berger HospitalLymphocytes/100 WBC Auto (Bld)on 72-67-4235Qpjxhvrsdpc/100 WBC (Bld)Lymphocytes/100 leukocytes in Blood by Automated nlhonRkk63.5-60.0[facility] HospitalH Auto (RBC) [Entitic mass]on 34-01-9717CAK (RBC) [Entitic mass]MCH [Entitic mass] by Automated count25.9-34.0Ber[facility] HospitalMCHC Auto (RBC) [Mass/Vol]on 84-95-5476PLMG (RBC) [Mass/Vol]MCHC [Mass/volume] by Automated count29.9-35.2FPremier Health Miami Valley Hospital SouthMCV Auto (RBC) [Entitic vol]on 95-60-9436YIF (RBC) [Entitic vol]MCV [Entitic volume] by Automated countHigh 80.0-94.0Berger HospitalMonocytes Auto (Bld) [#/Vol]on 23-87-7495Pgzwyasiv (Bld) [#/Vol]Automated blood monocyte countHigh0.3-0.8 Berger HospitalMonocytes/100 WBC Auto (Bld)on 08-30-2024 Monocytes/100 WBC (Bld)Automated monocyte %1.7-12.0Berger HospitalNeutrophils Auto (Bld) [#/Vol]on 48-50-4936Shdmljwjxyo (Bld) [#/Vol] Neutrophils [#/volume] in Blood by Automated count1.4-6.5FPremier Health Miami Valley Hospital SouthNeutrophils/100 WBC Auto (Bld)on 87-88-3555Gnxgwzvhjls/100 WBC (Bld)Automated neutrophil %43.0-75.0Berger HospitalNo Panel Informationon 71-85-8368Jqsdb BacteriaNONE SEEN #/HPFNONE SEENBerger HospitalUrine Culture ReflexedNOBerger HospitalUrine Occult BloodNegativeNEGATIVEBerger HospitalUrine Other Casts NONE SEEN #/LPFNONE SEENBerger HospitalUrine Other Crystals None Seen #/HPFNone SeenBerger HospitalUrine RBC0-2 #/HPF0-2 Berger HospitalUrine Squamous Epithelial CellsNONE SEEN #/LPF NONE/RAREBerger HospitalUrine WBCNONE SEEN #/HPFNONE SEEN Berger HospitalBedside Influenza Type A AntigenNegative Berger HospitalComment on above:Negative for Flu A protein antigen. Infection due to Flu Acannot be ruled out. Flu A antigen in thesample may bebelow the detection limit of the test.Bedside Influenza Type B Antigen NegativeBerger HospitalComment on above:Negative for Flu B protein antigen. Infection due to Flu Bcannot be ruled out. Flu B antigen in the sample may bebelow the detection limit of the test.C-Reactive Protein, Quantitative4.85 mg/dLHigh<=0.50Berger HospitalEosinophils # (Auto)0.0 10 3/uL0.0-0.7FPremier Health Miami Valley Hospital SouthImmature Granulocyte # (Auto)0.04 10 3/uLHigh0.00-0.03Berger HospitalTroponin I High Bjcxpjfhblm15.0 pg/mL4.0-76.1FPremier Health Miami Valley Hospital SouthComment on above: CUT-OFF POINTS HAVE BEEN ESTABLISHED BASED ON THE FOURTHUNIVERSAL DEFINITION OF MYOCARDIAL INFARCTION. THE UPPERREFERENCE LIMIT (URL) OF TROPONIN, DEFINED THE 99THPERCENTILE OF cTnI DISTRIBUTION IN A REFERENCE POPULATION,HAS BEEN CONFIRMED THE DECISION THRESHOLD FOR MIDIAGNOSIS.99TH PERCENTILE = 76.2 PG/MLNOTE: HIGH-SENSITIVITY TROPONIN ASSAY IS NOT INTENDED TO BEUSED IN ISOLATION BUT SHOULD BE INTERPRETED IN CONJUNCTIONWITH OTHER DIAGNOSTIC AND CLINICAL INFORMATION.Platelet mean volume Auto (Bld) [Entitic vol]on 08-30-2024 Platelet mean volume (Bld) [Entitic vol]Platelet mean volume [Entitic volume] in Blood by Automated count9.5-13.5FPremier Health Miami Valley Hospital SouthPlatelets Auto (Bld) [#/Vol]on 50-50-6757Vkupbxbsq (Bld) [#/Vol]Platelets [#/volume] in Blood by Automated -403VpzjhgnvrBerger HospitalProthrombin time (PT) on 99-23-0957NA Coag (PPP) [Time]Prothrombin time (PT)High9.0-11.6FPremier Health Miami Valley Hospital SouthRBC Auto (Bld) [#/Vol]on 02-02-0672LGM (Bld) [#/Vol] Erythrocytes [#/volume] in Blood by Automated countLow4.70-6.10Ber[facility] HospitalComprehensive metabolic 2000 panelOrdered By: Solange Delgado on 32-62-7977Ngeebmh [Mass/Vol]4 g/dL3.9 - 4.9 g/dLCleveland ClinicALP [Catalytic activity/Vol]126 U/LHigh38 - 113 U/LCleveland ClinicALT [Catalytic activity/Vol]10 U/L10 - 54 U/LCleveland ClinicAnion gap [Moles/Vol]10 mmol/L8 - 15 mmol/LCleveland ClinicAST [Catalytic activity/Vol]22 U/L14 - 40 U/LCleveland ClinicBilirubin [Mass/Vol]0.6 mg/dL0.2 - 1.3 mg/dLCleveland ClinicCalcium [Mass/Vol]8.9 mg/dL8.5 - 10.2 mg/dLCleveland ClinicChloride [Moles/Vol]93 mmol/L Low98 - 107 mmol/LCleveland ClinicCO2 [Moles/Vol]33 mmol/LHigh22 - 30 mmol/L [facility] ClinicCreatinine [Mass/Vol]1.66 mg/dLHigh0.73 - 1.22 mg/dLCleohiohealth grant medical center ClinicGFR/1.73 sq M.predicted among non-blacks MDRD (S/P/Bld) [Vol rate/Area]43 mL/min/{1.73_m2}Low- PINFCleveland ClinicComment on above:Estimated Glomerular Filtration Rate (eGFR) is calculated using the 2020 CKD-EPI creatinine equation. This equation utilizes serum creatinine, sex, and age as parameters. The creatinine assay has traceable calibration to isotope dilution-mass spectrometry. Refer to KDIGO guidelines for clinical interpretation. In patients with unstable renal function, e.g. those with acute kidney injury, the eGFRmay not accurately reflect actual GFR.Glucose [Mass/Vol]134 mg/hYQwgu81 - 99 mg/dL [facility] on above:The [place] Diabetes Association (ADA) provides guidance for cutoff values for fasting glucose andrandom glucose. The ADA defines fasting as no caloric intake for at least 8 hours. Fasting plasma gl ucose results between 100 to 125 mg/dL indicate [...] [place] Diabetes Association. Diabetes Care. 2016.39(Suppl 1). Interpretation and review of laboratory resultsAbnormalCleveland ClinicPotassium [Moles/Vol]2.7 mmol/LLow3.7 - 5.1 mmol/LCst. rita's hospital ClinicProtein [Mass/Vol]7.4 g/dL6.3 - 8.0 g/dLChappell Hill ClinicSodium [Moles/Vol]136 mmol/L136 - 144 mmol/L [facility] Medical CenterUrea nitrogen [Mass/Vol]40 mg/dLHigh9 - 24 mg/dLCincinnati Va Medical CenterComprehensive metabolic 2000 panelon 39-51-6565Owckbwd [Mass/Vol]4.0 g/dLNormal3.9-4.9CTriHealth [facility] on above:Order Comment: Specimen Type: BLOOD SPECIMENOrdering Facility: [facility] Address:[address] [place], [place] [address]Performed By: #### 18412- 9, ####[facility] LABCLIA [id number] [place], [place] [address]ZYQ [Catalytic activity/Vol]126 U/BLbhj84-620 [facility] on above:Order Comment: Specimen Type: BLOOD SPECIMENOrdering Facility: [facility] Address:[address] [place] [address]Ylswzgphl By: #### 46969-8, ####[facility] LABCLIA [id number] [place], [place] [address]LLW [Catalytic activity/Vol]10 U/WEdggsc61-01BigvdyixwPremier Health Miami Valley Hospital on above:Order Comment: Specimen Type: BLOOD SPECIMENOrdering Facility: [facility] Address:[address] [place], [place] [address]Performed By: #### 43038-7, 53451-6 ####[facility] LABCLIA [id number] [place], [place] [address]Cpasi gap [Moles/Vol]10 mmol/LNormal8-15 [facility] on above:Order Comment: Specimen Type: BLOOD SPECIMENOrdering Facility: [facility] Address:[address] [place], [place] [address]Performed By: #### 13648-1, 93428-4 ####LODNONAZYARELI [facility] LABCLIA [id number] [place], [place] [address]JYJ [Catalytic activity/Vol]22 U/IQpselz29-88KuhlypjovPremier Health [facility] Hospital on above:Order Comment: Specimen Type: BLOOD SPECIMENOrdering Facility: [facility] Address:[address] [place], [place] [address]Performed By: #### 58278-4, 75761-9 ####LONDONAZYARELI [facility] LABCLIA [id number] [place], [place] [address]Sqivxkyva [Mass/Vol]0.6 mg/dLNormal0.2-1.3 [facility] on above:Order Comment: Specimen Type: BLOOD SPECIMENOrdering Facility: [facility] Address:[address] [place], [place] [address]Performed By: #### 99355-0, 86225-2 ####LONDONAZYARELI [facility] LABCLIA [id number] [place], [place] [address]Zhsihuq [Mass/Vol]8.9 mg/dLNormal8.5-10.2CTriHealth Bethesda North Hospital on above: Order Comment: Specimen Type: BLOOD SPECIMENOrdering Facility: [facility] Address:[address] [place] [address]Eywwakpmk By: #### 71425- 9, 96249-5 ####[facility] LABCLIA [id number] [place], [place] [address]Fvmhdxap [Moles/Vol]93 mmol/RLra91-044DizntzzoePremier Health Miami Valley Hospital on above:Order Comment: Specimen Type: BLOOD SPECIMENOrdering Facility: [facility] Address:[address] [place], [place] [address]Performed By: #### 77993-2, 38112-7 ####[facility] LABCLIA [id number] [place], [place] [address]BS3 [Moles/Vol]33 mmol/HLkge75-26DdgfqtdwoPremier Health [facility] Hospital on above:Order Comment: Specimen Type: BLOOD SPECIMENOrdering Facility: [facility] Address:[address] [place], [place] [address]Performed By: #### 94948- 9, 16770-5 ####[facility] LABCLIA [id number] [place], [place] [address]Tleoqdrhhd [Mass/Vol]1.66 mg/dLHigh0.73-1.22 [facility] on above:Order Comment: Specimen Type: BLOOD SPECIMENOrdering Facility: [facility] Address:[address] [place], [place] [address]Performed By: #### 84822-6, 91499-2 ####[facility] LABCLIA [id number] [place] [address] Creatinine and Glomerular filtration rate.predicted panel (S/P/Bld)43 mL/min/1.73m???Low>=60[facility] on above:Order Comment: Specimen Type: BLOOD SPECIMENOrdering Facility: [facility] Address:[address] [place], [place] [address]Result Comment: Estimated Glomerular Filtration Rate (eGFR) is calculated using the 2020 CKD-EPI creatinine equation. This equation utilizes serum creatinine, sex, and age as parameters. The creatinine assay has traceable calibration to isotope dilution-mass spectrometry. Refer to KDIGO guidelines for clinical interpretation. In patients with unstable renal function, e.g. those with acute kidney injury, the eGFR may not accurately reflect actual GFR.Performed By: #### 96194-5, 69678-1 ####[facility] LABCLIA [id number] [place], [place] [address]Ribpqne [Mass/Vol]134 mg/aYWaut11-12HclczssilPremier Health [facility] Hospital on above:Order Comment: Specimen Type: BLOOD SPECIMENOrdering Facility: [facility] Address:[address] [place] [address]Pyyloh Comment: The [place] Diabetes Association (ADA) provides guidance for cutoff values for fasting glucose and random glucose. The ADA defines fasting as no caloric intake for at least 8 hours. Fasting plasma glucose results between 100 to 125 mg/dL indicate increased risk for diabetes (prediab etes).Fasting plasma glucose results greater than or equal to 126 mg/dL meet the criteria for diagnosis of diabetes. In the absence of unequivocal hyperglycemia, results should be confirmed by repeattesting. In a patient with classic symptoms of hyperglycemia or hyperglycemic crisis, random plasmaglucose results greater than or equal to 200 mg/dL meet the criteria for diagnosis of diabetes.Reference: Standards of Medical Care in Diabetes 2016, [place] Diabetes Association. Diabetes Care. 2016.39(Suppl 1).Performed By: #### 63548- 9, 29273-7 ####[facility] LABCLIA [id number] [place], [place] [address]Tptzaofed [Moles/Vol]2.7 mmol/LLow3.7-5.1CTriHealth Bethesda North Hospital on above:Order Comment: Specimen Type: BLOOD SPECIMENOrdering Facility: [facility] Address:[address] [place], [place] [address]Txnnkjeys By: #### 21105-0, 54760-1 ####[facility] LABCLIA [id number] [place], [place] [address]Jqjcpnh [Mass/Vol]7.4 g/dLNormal6.3-8.0[facility] on above:Order Comment: Specimen Type: BLOOD SPECIMENOrdering Facility: [facility] Address:[address] [place], [place] [address]Performed By: #### 99637- 9, 25448-2 ####[facility] LABCLIA [id number] [place], [place] [address]Xzgsml [Moles/Vol]136 mmol/XBeiatm209-951KikqiajbnPremier Health [facility] Hospital on above:Order Comment: Specimen Type: BLOOD SPECIMENOrdering Facility: [facility] Address:[address] [place], [place] [address]Performed By: #### 99387-9, 89955-7 ####[facility] LABCLIA [id number] [place], [place] [address]Ncno nitrogen [Mass/Vol]40 mg/dLHigh9-24[facility] on above: Order Comment: Specimen Type: BLOOD SPECIMENOrdering Facility: [facility] Address:[address] [place], [place] [address]Performed By: #### 72679- 9, 58812-0 ####[facility] LABCLIA [id number] [place], [place] [address]Eauihmwhwu - Chemistry and Chemistry - challengeon 65-34-7752Jcfbnzt [Mass/Vol]4.0 g/dL3.9-4.9Berger HospitalALP [Catalytic activity/Vol]126 U/HWdvc21-666QagozbmciBerger HospitalALT [Catalytic activity/Vol]10 U/Y52-28UvhzryxemBerger HospitalAST [Catalytic activity/Vol]22 U/D03-65SakdonvfkBerger HospitalBilirubin [Mass/Vol]0.6 mg/dL0.2-1.3FPremier Health Miami Valley Hospital SouthCalcium [Mass/Vol]8.9 mg/dL8.5-10.2FPremier Health Miami Valley Hospital SouthChloride [Moles/Vol]93 mmol/LLow 98-107Berger HospitalCO2 [Moles/Vol]33 mmol/NMexu64-27 [facility] HospitalCreatinine [Mass/Vol]1.66 mg/dLHigh0.73-1.22 [facility] HospitalGlucose [Mass/Vol]134 mg/aKRtnj43-65KzyaoohkpBerger HospitalComment on above:The [place] Diabetes Association (ADA) provides guidance for cutoff values for fasting glucose andrandom glucose. The ADA defines fasting as no caloric intake for at least 8 hours. Fasting plasma gl ucose results between 100 to 125 mg/dL indicate increased risk for diabetes (prediabetes).Fasting plasma glucose results greater than or equal to 126 mg/dL meet the criteria for diagnosis of diabetes. In the absence of unequivocal hyperglycemia, results should be confirmed by repeat testing. In a patient with classic symptoms of hyperglycemia or hyperglycemic crisis, random plasma glucose resultsgreater than or equal to 200 mg/dL meet the criteria for diagnosis of diabetes.Reference: Standardsof Medical Care in Diabetes 2016, [place] Diabetes Association. Diabetes Care. 2016.39(Suppl 1).Magnesium [Mass/Vol]2.4 mg/dLHigh 1.7-2.3FPremier Health Miami Valley Hospital SouthPotassium [Moles/Vol]2.7 mmol/LLow 3.7-5.1FRegional Medical Centerodium [Moles/Vol]136 mmol/T079-430 [facility] HospitalTSH Qn2.030 m[IU]/L0.270-4.200Berger HospitalUrea nitrogen [Mass/Vol]40 mg/dLHigh9-24Berger HospitalMAGNESIUMon 48-39-8821Pkalhemoy [Mass/Vol]2.4 mg/dLHigh 1.7 - 2.3 mg/dLAdena Pike Medical CenterMagnesium SerPl-mCncon 53-19-4153Moymmnpzx [Mass/Vol]2.4 mg/dLHigh1.7-2.3CUniversity Hospitals Parma Medical CenterComascension borgess allegan hospital on above:Order Comment: Specimen Type: BLOOD SPECIMENOrdering Facility: [facility] Address:851[facility] MED[facility] [place]ERSJ[place], [place] [address]Ghlzrfigg By: #### 68257- 9, 50102-0 ####[facility] LABCLIA [id number] [place], [place] [address]Foiqsluke [Mass/Vol]on 32-11-7971Unmnvbidiwtowf and review of laboratory resultsAbnormalCAdams County Regional [facility] Center Panel Informationon 45-93-8966Stfgezhji GFR (CKD-EPI)43 mL/min/1.73m???Low>=60 Berger HospitalComment on above:Estimated Glomerular Filtration Rate (eGFR) is calculated using the 2020 CKD-EPI creatinine equation. This equation utilizes serum creatinine, sex, and age as parameters. The creatinine assay has traceable calibration to isotope dilution-mass spectrometry. Refer to KDIGO guidelines for clinical interpretation. In patients with unstable renal function, e.g. those with acute kidney injury, the eGFRmay not accurately reflect actual GFR.Protein [Mass/volume] in Serum or Plasmaon 88-24-8447Wmffeld [Mass/Vol]Protein [Mass/volume] in Serum or Plasma6.3-8.0 [facility] Hospitalerum or plasma anion gap determinationon 27-62-9660Praze gap [Moles/Vol]Serum or plasma anion gap determination8-15 Berger HospitalTS SerPl-aCncon 50-42-3910QKQ Qn2.030 m[IU]/L Normal0.270-4.200[facility] HospitalComascension borgess allegan hospital on above:Order Comment: Specimen Type: BLOOD SPECIMENOrdering Facility: [facility] Address:[address] [place], [place] [address]Performed By: #### 3016-3 ####[facility] LABCLIA [id number] [facility] [id number] [place] [address] Panel Informationon 08-27-2024 [facility] HealthcareComprehensive metabolic 2000 panelon 78-69-9214Snqjqhk [Mass/Vol] 4.1 g/dLNormal3.9-4.9ClevelTrinity Health System East Campus on above:Order Comment: Specimen Type: BLOOD SPECIMENOrdering Facility: [facility] Address:[address] [place], [place] [address]Performed By: #### 20128-1, 3016-3, 42320-3 ####[facility] LABCLIA [id number] [place] [address] [place] AMERICAALP [Catalytic activity/Vol]137 U/FEjid89-579SjyvakzdyPremier Health [facility] Hospital on above:Order Comment: Specimen Type: BLOOD SPECIMENOrdering Facility: [facility] Address:[address] [place], [place] [address]Performed By: #### 38072-5, 3016-3, 67760-2 ####[facility] LABCLIA [id number] [address], [facility]95 [place] AMERICAALT [Catalytic activity/Vol]17 U/YMgmufx59-83FedqznifyPremier Health [facility] Hospital on above:Order Comment: Specimen Type: BLOOD SPECIMENOrdering Facility: [facility] Address:[address] [place], [place] [address]Performed By: #### 02117-2, 3016-3, 97944-4 ####[facility] LABCLIA [id number] [address], [facility]95 [place] AMERICAAnion gap [Moles/Vol]13 mmol/L Normal8-15[facility] on above:Order Comment: Specimen Type: BLOOD SPECIMENOrdering Facility: [facility] Address:[address] [place], [place] [address]Performed By: #### 95915-0, 3016-3, 32281-3 ####[facility] LABCLIA [id number] [address], [facility]95 [place] AMERICAAST [Catalytic activity/Vol]32 U/JRoypvr89-23ExqqmqketPremier Health [facility] Hospital on above:Order Comment: Specimen Type: BLOOD SPECIMENOrdering Facility: [facility] Address:[address] [place], [place] [address]Performed By: #### 33692-9, 3016-3, 46775-6 ####[facility] LABCLIA [id number] [address] [place] [address] [place] AMERICABilirubin [Mass/Vol]0.7 mg/dL Normal0.2-1.3CTriHealth [facility]hesda [facility] Hospital on above:Order Comment: Specimen Type: BLOOD SPECIMENOrdering Facility: [facility] Address:[address] [place], [place] [address]Performed By: #### 01439-6, 3015-3, 92901-9 ####[facility] LABCLIA [id number] AVENUESENECA HOSPITALK [place] [id number] [place] AMERICACalcium [Mass/Vol]9.5 mg/dLNormal 8.5-10.2CTriHealth [facility]hes[facility] Hospital on above:Order Comment: Specimen Type: BLOOD SPECIMENOrdering Facility: [facility] Address:[address] [place], [place] [address]Performed By: #### 48042-4, 3, 52941-3 ####[facility] LABCLIA [id number] [place] [address] [place] AMERICAChloride [Moles/Vol]93 mmol/LLow 98-107[facility] on above:Order Comment: Specimen Type: BLOOD SPECIMENOrdering Facility: [facility] Address:[address] [place], [place] [address]Performed By: #### 11923-4, 3, 73572-8 ####[facility] LABCLIA [id number] [place] [address] [place] AMERICACO2 [Moles/Vol]31 mmol/UAeox46-71 [facility] on above:Order Comment: Specimen Type: BLOOD SPECIMENOrdering Facility: [facility] Address:[address] [place], [place] [address]Performed By: #### 62724-9, 3, 63746-7 ####[facility] LABCLIA [id number] AVENUESENECA HOSPITALK [address] [address] [place] AMERICACreatinine [Mass/Vol]1.61 mg/dLHigh0.73-1.22 [facility] on above:Order Comment: Specimen Type: BLOOD SPECIMENOrdering Facility: [facility] Address:[address] [place], [place] [address]Xezvcbwdk By: #### 72490-9, 3016-3, 68893-5 ####[facility] LABIA [id number] [address] [place] AMERICACreatinine and Glomerular filtration rate.predicted panel (S/P/Bld)45 mL/min/1.73m???Low>=60[facility] on above:Order Comment: Specimen Type: BLOOD SPECIMENOrdering Facility: [facility] Address:[address] [place] [address]Ygewpx Comment: Estimated Glomerular Filtration Rate (eGFR) is [...] accurately reflect actual GFR. Performed By: #### 29788-7, 3016-3, 14940-9 ####[facility] LABIA [id number] [address] [place] AMERICAGlucose [Mass/Vol]99 mg/eEBkbfhi78-94WmmlucpwbPremier Health [facility] on above:Order Comment: Specimen Type: BLOOD SPECIMENOrdering Facility: [facility] Address:[address] [place] [address]Ffkeup Comment: The [place] Diabetes Association (ADA) provides [...] unequivocal hyperglycemia, results should be confirmed by repeattesting. In a patient with classic symptoms of hyperglycemia or hyperglycemic crisis, random plasmaglucose results greater than or equal to 200 mg/dL meet the criteria for diagnosis of diabetes.Reference: Standards of Medical Care in Diabetes 2016, [place] [employer] Association. Diabetes Care. 2016.39(Suppl 1).Performed By: #### 53287-9, 6-3, 69047-8 ####[facility] LABCLIA [id number] [address] [place] AMERICAPotassium [Moles/Vol]2.9 mmol/LLow3.7-5.1CTriHealth [facility] on above:Order Comment: Specimen Type: BLOOD SPECIMENOrdering Facility: [facility] Address:[address] [place], [place] [address]Performed By: #### 49318-1, 3015-3, 62637-3 ####[facility] LABIA [id number] VIL[place] [address] [place] AMERICAProtein [Mass/Vol]8.0 g/dLNormal6.3-8.0[facility] on above:Order Comment: Specimen Type: BLOOD SPECIMENOrdering Facility: [facility] Address:[address] [place], [place] [address]Performed By: #### 12199-2, 3015-3, 17170-6 ####[facility] LABIA [id number] [place]IL[place] [address] [place] AMERICASodium [Moles/Vol]137 mmol/FXjgbuh060-595QbwywqnauPremier Health [facility] Hospital on above:Order Comment: Specimen Type: BLOOD SPECIMENOrdering Facility: [facility] Address:[address] [place] [address]Byauftsmj By: #### 07851-4, 3015-3, 06970-8 ####[facility] LABIA [id number] [address] [place] AMERICAUrea nitrogen [Mass/Vol]30 mg/dLHigh9-24[facility] on above:Order Comment: Specimen Type: BLOOD SPECIMENOrdering Facility: [facility] Address:[address] [place], [place] [address]Performed By: #### 86013-3, 3016-3, 89893-3 ####[facility] LABCLIA [id number] [address] [place] AMERICALaboratory - Chemistry and Chemistry - challengeon 31-98-3797Jfchdgc [Mass/Vol]4.1 g/dL3.9-4.9Berger HospitalALP [Catalytic activity/Vol]137 U/DTias93-965MokuxauxeBerger HospitalALT [Catalytic activity/Vol]17 U/N93-95MuzubjdgfBerger HospitalAST [Catalytic activity/Vol]32 U/D35-08JskfskcxsBerger HospitalBilirubin [Mass/Vol]0.7 mg/dL0.2-1.3FPremier Health Miami Valley Hospital SouthCalcium [Mass/Vol]9.5 mg/dL8.5-10.2FPremier Health Miami Valley Hospital SouthChloride [Moles/Vol]93 mmol/LLow 98-107Berger HospitalCO2 [Moles/Vol]31 mmol/XKbyd10-08 [facility] HospitalCreatinine [Mass/Vol]1.61 mg/dLHigh0.73-1.22 [facility] HospitalGlucose [Mass/Vol]99 mg/eA10-99TaxlfjtwiBerger HospitalComment on above:The [place] Diabetes Association (ADA) provides guidance for cutoff values for fasting glucose andrandom glucose. The ADA defines fasting as no caloric intake for at least 8 hours. Fasting plasma gl ucose results between 100 to 125 mg/dL indicate increased risk for diabetes (prediabetes).Fasting plasma glucose results greater than or equal to 126 mg/dL meet the criteria for diagnosis of diabetes. In the absence of unequivocal hyperglycemia, results should be confirmed by repeat testing. In a patient with classic symptoms of hyperglycemia or hyperglycemic crisis, random plasma glucose resultsgreater than or equal to 200 mg/dL meet the criteria for diagnosis of diabetes.Reference: Standardsof Medical Care in Diabetes 2016, [place] Diabetes Association. Diabetes Care. 2016.39(Suppl 1).Magnesium [Mass/Vol]2.4 mg/dLHigh 1.7-2.3FPremier Health Miami Valley Hospital SouthPotassium [Moles/Vol]2.9 mmol/LLow 3.7-5.1FRegional Medical Centerodium [Moles/Vol]137 mmol/H019-722 [facility] HospitalTSH Qn2.980 m[IU]/L0.270-4.200Berger HospitalUrea nitrogen [Mass/Vol]30 mg/dLHigh9-24Berger HospitalMagnesium SerPl-mCncon 00-65-0082Oulzhwvrb [Mass/Vol]2.4 mg/dLHigh1.7-2.3CTriHealth Bethesda North Hospital on above:Order Comment: Specimen Type: BLOOD SPECIMENOrdering Facility: [facility] Address:[address]66[facility]ENTERP[facility]REZ [place], [place] [address]Performed By: #### 56502-0, 3016-3, 23379-2 ####[facility] LABCLIA [id number] [address] Panel Informationon 47-67-3436Yykpdxqvc GFR (CKD-EPI)45 mL/min/1.73m???Low>=60Ber[facility] HospitalComascension borgess allegan hospital on above:Estimated Glomerular Filtration Rate (eGFR) is calculated using the 2020 CKD-EPI creatinine equation. This equation utilizes serum creatinine, sex, and age as parameters. The creatinine assay has traceable calibration to isotope dilution-mass spectrometry. Refer to KDIGO guidelines for clinical interpretation. In patients with unstable renal function, e.g. those with acute kidney injury, the eGFRmay not accurately reflect actual GFR. Protein [Mass/volume] in Serum or Plasmaon 78-21-8423Cqbaphr [Mass/Vol]Protein [Mass/volume] in Serum or Plasma6.3-8.0[facility] Hospitalerum or plasma anion gap determinationon 64-50-9502Dqhsj gap [Moles/Vol]Serum or plasma anion gap determination8-15[facility] SerPl-aCncon 34-12-0013IAE Qn2.980 m[IU]/LNormal0.270-4.200[facility] on above:Order Comment: Specimen Type: BLOOD SPECIMENOrdering Facility: [facility] Address:[address] [place] [address] Performed By: #### 45930-7, 3016-3, 71097-2 ####[facility] LABCLIA [id number] [place] [id number] [place] OF AMERICACNPNon 76-03-6221KDDKFohxjdHixfoqrmk Clinic ClevelandCNOVon 08-18-2024 CNOVNormalCUniversity Hospitals Parma Medical CenterOptical coherence tomography study reporton 83-98-3691HJJPFroedtert Kenosha Medical Center Panel Informationon 08-13-2024 IMPRESSION: Small, layering right-sided pleural effusion, stable in size from prior study of 07/20/2024. Rebar Fabricator: PSCB Transcribe Date/Time: Aug 13 2024 10:27A Dictated by : NOLBERTO SMITH MD This examination was interpreted and the report reviewed and electronically signed by: NOLBERTO SMITH MD on Aug 13 2024 10:32AM EST DIVISION OF RADIOLOGYRadiology Study observation (narrative)[facility] InformationOrdered By: Ccf Provider on 87-30-5198Zeugqpive ClinicXR CHEST 1V DECUBITUS RTon 79-01-9696HA CHEST 1V DECUBITUS RTNormMercy Memorial HospitalXR CHEST 2V FRONTAL/LATon 08-01-6005KE CHEST 2V FRONTAL/LATNormal [facility] HospitalXR Chest AP right lateral-decubituson 08-13-2024* * *Final Report* * * DATE OF [...] thoracic spine is again noted. DIVISION OF RADIOLOGYProvider, [facility] [place] - 08/13/2024 * * *Final Report* * [...] in size from prior study of 07/20/2024. Rebar Fabricator[facility] Transcribe Date/Time: Aug 13 2024 10:27A Dictated by : NOLBERTO SMITH MD This examination was interpreted and the report reviewed and electronically signed by: NOLBERTO SMITH MD on Aug 13 2024 10:32AM EST [facility] CenterXR Chest PA and Lateralon 08-13-2024* * *Final Report* * * DATE OF [...] thoracic spine is again noted. DIVISION OF RADIOLOGYProvider, [facility] [place] - 08/13/2024 * * *Final Report* * [...] in size from prior study of 07/20/2024. Rebar Fabricator: ALONSO Transcribe Date/Time: Aug 13 2024 10:27A Dictated by : NOLBERTO SMITH MD This examination was interpreted and the report reviewed and electronically signed by: NOLBERTO SMITH MD on Aug 13 2024 10:32AM EST [facility] CenterCNPNon 66-53-9193ZJOFFqpygmUndkgewiz Clinic ClevelandOptical coherence tomography study reporton 43-23-4982Hjdwweyfr Study observation (narrative)NOMS HealthcareCNPNon 72-58-5393OVIDGbburcQwyuoarlk Clinic Cleveland CNPNon 80-90-3605LXMFUylotmNkqbtecoe Clinic ClevelandCNPNon 59-43-0607IYAHXyxpnx [facility]25([place])D3 SerPl-mCncon 682145-pfimueonvwaqel D3 [Mass/Vol]49.2 ng/vTOzxpyi23.0-80.0[facility] on above: Order Comment: Specimen Type: BLOOD SPECIMENOrdering Facility: [facility] Address:[address] [place], [place] [address]Result Comment: Classification of 25 [place] Vitamin D status:Deficiency/Insufficiency: < or = 30 ng/ml.Sufficiency/Optimal Levels: 31-80 ng/mLToxicity: > 100 ng/mL.Test performed by chemiluminescent immunoassay.Performed By: #### 1989-3 ####[facility] LABCLIA [id number] [address] AMERICABapaintsville arh hospital metabolic 2000 panelon 52-49-4306Vtzqf gap [Moles/Vol]7 mmol/LLow8-15[facility] on above:Order Comment: Specimen Type: BLOOD SPECIMENOrdering Facility: [facility] Address:[address] [place] [address] Performed By: #### 58295-0, 76310-9 ####[facility] LABCLIA [id number] [place], [place] [address]Zkyqfot [Mass/Vol]8.9 mg/dLNormal8.5-10.2CTriHealth Bethesda North Hospital on above:Order Comment: Specimen Type: BLOOD SPECIMENOrdering Facility: [facility] Address:[address] [place], [place] [address]Performed By: #### 17757-3, 19364-1 ####[facility] LABCLIA [id number] [place], [place] [address]Axzuerpm [Moles/Vol]105 mmol/WOlriwz65-770CbsxekoafPremier Health Miami Valley Hospital on above:Order Comment: Specimen Type: BLOOD SPECIMENOrdering Facility: [facility] Address:[address] [place], [place] [address]Performed By: #### 57161-4, 50089-2 ####[facility] LABCLIA [id number] [place], [place] [address]CT3 [Moles/Vol]27 mmol/KYjazxj41-79AdvrzwfmzPremier Health [facility] Hospital on above:Order Comment: Specimen Type: BLOOD SPECIMENOrdering Facility: [facility] Address:[address] [place], [place] [address]Performed By: #### 30553- 9, 82902-6 ####[facility] LABCLIA [id number] [place], [place] [address]Xsdrmjvckm [Mass/Vol]1.25 mg/dLHigh0.73-1.22 [facility] on above:Order Comment: Specimen Type: BLOOD SPECIMENOrdering Facility: [facility] Address:[address] [place], [place] [address]Performed By: #### 19179-9, 63174-7 ####[facility] LABCLIA [id number] [place] [address] Creatinine and Glomerular filtration rate.predicted panel (S/P/Bld)61 mL/min/1.73m???Normal>=60[facility] on above:Order Comment: Specimen Type: BLOOD SPECIMENOrdering Facility: [facility] Address:[address] [place], [place] [address]Result Comment: Estimated Glomerular Filtration Rate (eGFR) is calculated using the 2020 CKD-EPI cre atinine equation. This equation utilizes serum creatinine, sex, and age as parameters. The creatinine assay has traceable calibration to isotope dilution- mass spectrometry. Refer to KDIGO guidelines for clinical interpretation. In patients with unstable renal function, e.g. those with acute kidney injury, the eGFR may not accurately reflect actual GFR.Performed By: #### 13159-9, 60852-9 ####[facility] LABCLIA [id number] [place], [place] [address]Kobqpyn [Mass/Vol]141 mg/yUZcjz63-51VkuywjjtoPremier Health [facility] Hospital on above:Order Comment: Specimen Type: BLOOD SPECIMENOrdering Facility: [facility] Address:[address] [place], [place] [address]Result Comment: The [place] Diabetes Association (ADA) provides guidance for cutoff values for fasting glucose and random glucose. The ADA defines fasting as no caloric intake for at least 8 hours. Fasting plasma glucose results between 100 to 125 mg/dL indicate increased risk for diabetes (prediab etes).Fasting plasma glucose results greater than or equal to 126 mg/dL meet the criteria for diagnosis of diabetes. In the absence of unequivocal hyperglycemia, results should be confirmed by repeattesting. In a patient with classic symptoms of hyperglycemia or hyperglycemic crisis, random plasmaglucose results greater than or equal to 200 mg/dL meet the criteria for diagnosis of diabetes.Reference: Standards of Medical Care in Diabetes 2016, [place] Diabetes Association. Diabetes Care. 2016.39(Suppl 1).Performed By: #### 20742- 9, 92305-9 ####[facility] LABCLIA [id number] [place], [place] [address]Ijttcttqt [Moles/Vol]4.0 mmol/LNormal3.7-5.1 [facility] on above:Order Comment: Specimen Type: BLOOD SPECIMENOrdering Facility: [facility] Address:[address] [place] [address]Gmqattgsd By: #### 78585-7, 16940-9 ####[facility] LABCLIA [id number] [place], [place] [address]Cavhfb [Moles/Vol]139 mmol/URnkmmo198-143ZgwqkvfkqPremier Health [facility] on above: Order Comment: Specimen Type: BLOOD SPECIMENOrdering Facility: [facility] Address:[address] [place], [place] [address]Performed By: #### 93155- 9, 85714-5 ####[facility] LABCLIA [id number] [place], [place] [address]Sqqc nitrogen [Mass/Vol]27 mg/dLHigh9-24[facility] on above:Order Comment: Specimen Type: BLOOD SPECIMENOrdering Facility: [facility] Address:[address] [place], [place] [address]Performed By: #### 92492-0, 96195-0 ####[facility] LABCLIA [id number] [place], [place] [address]EMZ panel Auto (Bld)on 69-47-0870Dxbnvgxflhw distribution width (RBC) [Ratio]16.2 % High11.5 - 15.0 %[facility] Medical CenterHematocrit (Bld) [Volume fraction]34.6 %Low39.0 - 51.0 %[facility] CenterHemoglobin (Bld) [Mass/Vol]11.4 g/dLLow13.0 - 17.0 g/dL [facility] CenterInterpretation and review of laboratory resultsAbnormalCUniversity Hospitals Portage Medical CenterH (RBC) [Entitic mass]31.3 pg26.0 - 34.0 pgCUniversity Hospitals Portage Medical CenterHC (RBC) [Mass/Vol]32.9 g/dL30.5 - 36.0 g/dLOhio Valley HospitalV (RBC) [Entitic vol]95.1 fL80.0 - 100.0 fLCMartin Memorial HospitalNucleated RBC (Bld) [#/Vol]NINFCMartin Memorial Hospital Platelet mean volume (Bld) [Entitic vol]10.1 fL9.0 - 12.7 fLCMartin Memorial Hospital Platelets (Bld) [#/Vol]222 10*3/uLAdena Pike Medical CenterRBC (Bld) [#/Vol]3.64 10*6/uL Low4.20 - 6.00 m/[facility] HospitalWBC (Bld) [#/Vol]7.62 10*3/uLCincinnati Va Medical CenterErythrocyte distribution width (RBC) [Ratio]16.2 %High11.5-15.0 [facility] on above:Order Comment: Specimen Type: BLOOD SPECIMENOrdering Facility: [facility] Address:[address] [place], [place] [address]Performed By: #### 28846-1 ####[facility] LABCLIA [id number] [place], [place] [address]Zzskgcndsl (Bld) [Volume fraction]34.6 %Low39.0-51.0[facility] on above: Order Comment: Specimen Type: BLOOD SPECIMENOrdering Facility: [facility] Address:[address] [place], [place] [address]Performed By: #### 89184- 2 ####[facility] LABCLIA [id number] [place], [place] [address]Gvyyhutnij (Bld) [Mass/Vol]11.4 g/dLLow13.0-17.0[facility] on above:Order Comment: Specimen Type: BLOOD SPECIMENOrdering Facility: [facility] Address:[address] [place], [place] [address]Performed By: #### 60337-4 ####[facility] LABCLIA [id number] [place], [place] [address]OPJ (RBC) [Entitic mass]31.3 gwYwsayv11.0-34.0[facility] on above: Order Comment: Specimen Type: BLOOD SPECIMENOrdering Facility: [facility] Address:[address] [place], [place] [address]Performed By: #### 76000- 2 ####[facility] LABCLIA [id number] [place], [place] [address]NUNK (RBC) [Mass/Vol]32.9 g/bLEwkrtz35.5-36.0[facility] on above:Order Comment: Specimen Type: BLOOD SPECIMENOrdering Facility: [facility] Address:[address] [place], [place] [address]Performed By: #### 39896-4 ####[facility] LABCLIA [id number] [place], [place] [address]HOD (RBC) [Entitic vol]95.1 dVNlatmq46.0-100.0[facility] on above: Order Comment: Specimen Type: BLOOD SPECIMENOrdering Facility: [facility] Address:[address] [place], [place] [address]Performed By: #### 97001- 2 ####[facility] LABCLIA [id number] [place], [place] [address]Lurglmpid RBC (Bld) [#/Vol]10*3/uLNormal<0.01[facility] on above:Order Comment: Specimen Type: BLOOD SPECIMENOrdering Facility: [facility] Address:[address] [place], [place] [address]Performed By: #### 26796-8 ####[facility] LABIA [id number] [place], [place] [address]Ytxqayht mean volume (Bld) [Entitic vol]10.1 fLNormal9.0-12.7CTriHealth Bethesda North Hospital on above:Order Comment: Specimen Type: BLOOD SPECIMENOrdering Facility: [facility] Address:[address] [place] [address] Performed By: #### 82719-7 ####[facility] LABCLIA [id number] [place], [place] [address]Epcocgwuq (Bld) [#/Vol]222 10*3/xQNunvuy482-185LmzvwuvyfPremier Health [facility] Hospital on above:Order Comment: Specimen Type: BLOOD SPECIMENOrdering Facility: [facility] Address:[address] [place], [place] [address]Performed By: #### 50153-2 ####[facility] LABCLIA [id number] [place], [place] [address]EHO (Bld) [#/Vol]3.64 10*6/uLLow4.20-6.00[facility] on above:Order Comment: Specimen Type: BLOOD SPECIMENOrdering Facility: [facility] Address:[address] [place], [place] [address]Performed By: #### 69127-3 ####[facility] LABCLIA [id number] [place], [place] [address]GYO (Bld) [#/Vol]7.62 10*3/uL Normal3.70-11.00[facility] on above:Order Comment: Specimen Type: BLOOD SPECIMENOrdering Facility: [facility] Address:[address] [place], [place] [address]Performed By: #### 86695-6 ####[facility] LABCLIA [id number] [place], [place] [address]Yupahw SerPl-mCncon 64-96-1481Vxtztkni [Mass/Vol]11.1 ug/dLNormal4.8-19.5CTriHealth Bethesda North Hospital on above:Order Comment: Specimen Type: BLOOD SPECIMENOrdering Facility: [facility] Address:[address] [place], [place] [address]Result Comment: Provided reference range is from 6-10 AM sample collection time.Cortisol Reference Range: 6-10 AM = 4.8-19.5 ug/dL, 4-8 PM = 2.5-11.9 ug/dLPerformed By: #### 2143-6, 2132-9 ####[facility] LABCLIA [id number] [facility] O96SIBTJOSYAHANNAH [place] [id number] [place] OF AMERICAErythrocyte distribution width Auto (RBC) [Ratio]on 02-92-3855Gtsuhrtfmxg distribution width (RBC) [Ratio] Erythrocyte distribution width [Ratio] by Automated uijqmKbpm81.5-15.0Berger HospitalHematocrit Auto (Bld) [Volume fraction]on 07-29-2024 Hematocrit (Bld) [Volume fraction]Hematocrit [Volume Fraction] of Blood by Automated kbbpvKbr32.0-51.0Berger HospitalHemoglobin [Mass/volume] in Bloodon 23-12-4931Idzuitodrl (Bld) [Mass/Vol]Hemoglobin [Mass/volume] in RncnaOop87.0-17.0Ber[facility] HospitalLaboratory - Chemistry and Chemistry - challengeon 27-88-6210Vfowmij [Mass/Vol]8.9 mg/dL 8.5-10.2FPremier Health Miami Valley Hospital SouthChloride [Moles/Vol]105 mmol/L98-107 [facility] HospitalCO2 [Moles/Vol]27 mmol/P77-77XqgykzepzBerger HospitalCobalamin (Vitamin B12) [Mass/Vol]729 pg/jP429-7883XzipntsvtBerger HospitalCreatinine [Mass/Vol]1.25 mg/dLHigh0.73-1.22Berger HospitalGlucose [Mass/Vol]141 mg/oTClcx62-13HypryjxkwBerger HospitalComment on above:The [place] Diabetes Association (ADA) provides guidance for cutoff values for fasting glucose andrandom glucose. The ADA defines fasting as no caloric intake for at least 8 hours. Fasting plasma gl ucose results between 100 to 125 mg/dL indicate increased risk for diabetes (prediabetes).Fasting plasma glucose results greater than or equal to 126 mg/dL meet the criteria for diagnosis of diabetes. In the absence of unequivocal hyperglycemia, results should be confirmed by repeat testing. In a patient with classic symptoms of hyperglycemia or hyperglycemic crisis, random plasma glucose resultsgreater than or equal to 200 mg/dL meet the criteria for diagnosis of diabetes.Reference: Standardsof Medical Care in Diabetes 2016, [place] Diabetes Association. Diabetes Care. 2016.39(Suppl 1).Magnesium [Mass/Vol]2.0 mg/dL 1.7-2.3FPremier Health Miami Valley Hospital SouthPotassium [Moles/Vol]4.0 mmol/L3.7-5.1 [facility] Hospitalodium [Moles/Vol]139 mmol/Z081-324XgvoquzmpBerger HospitalUrea nitrogen [Mass/Vol]27 mg/dLHigh9-24Berger HospitalLeukocytes [#/volume] corrected for nucleated erythrocytes in Blood by Automated counon 84-36-5113HBQ corrected for nucl RBC Auto (Bld) [#/Vol]Leukocytes [#/volume] corrected for nucleated erythrocytes in Blood by Automated coun3.70-11.00[facility] HospitalH Auto (RBC) [Entitic mass]on 66-57-0797QYW (RBC) [Entitic mass]MCH [Entitic mass] by Automated count26.0-34.0Berger HospitalMCHC Auto (RBC) [Mass/Vol]on 12-36-5503IWHU (RBC) [Mass/Vol]MCHC [Mass/volume] by Automated count30.5-36.0Berger HospitalMCV Auto (RBC) [Entitic vol]on 03-29-0346PSZ (RBC) [Entitic vol]MCV [Entitic volume] by Automated count 80.0-100.0Berger HospitalMagnesium SerPl-mCncon 07-29-2024 Magnesium [Mass/Vol]2.0 mg/dLNormal1.7-2.3CUniversity Hospitals Parma Medical CenterComment on above:Order Comment: Specimen Type: BLOOD SPECIMENOrdering Facility: [facility] Address:[address] [place], [place] [address]Performed By: #### 06234-4, 74883-7 ####[facility] LABCLIA [id number] [place], [place] [address]Oq Panel Informationon 79-52-1937Puvzbrwrv GFR (CKD-EPI)61 mL/min/1.73m???>=60Berger HospitalComment on above:Estimated Glomerular Filtration Rate (eGFR) is calculated using the 2020 CKD-EPI creatinine equation. This equation utilizes serum creatinine, sex, and age as parameters. The creatinine assay has traceable calibration to isotope dilution-mass spectrometry. Refer to KDIGO guidelines for clinical inte rpretation. In patients with unstable renal function, e.g. those with acute kidney injury, the eGFRmay not accurately reflect actual GFR.Nucleated RBC Auto (Bld) [#/Vol]on 76-27-3039Gldylxzac RBC (Bld) [#/Vol]Nucleated erythrocytes [#/volume] in Blood by Automated count<0.01[facility] Platelet mean volume Auto (Bld) [Entitic vol]on 38-11-4045Htfktjaw mean volume (Bld) [Entitic vol]Platelet mean volume [Entitic volume] in Blood by Automated count9.0-12.7FPremier Health Miami Valley Hospital SouthPlatelets Auto (Bld) [#/Vol]on 68-57-9377Ewuuglioe (Bld) [#/Vol]Platelets [#/volume] in Blood by Automated vcyyj647-070AjzcosrmfBerger HospitalRBC Auto (Bld) [#/Vol]on 07-29-2024 RBC (Bld) [#/Vol]Erythrocytes [#/volume] in Blood by Automated countLow4.20-6.00 [facility] Hospitalerum or plasma anion gap determinationon 58-07-7318Wikit gap [Moles/Vol]Serum or plasma anion gap determinationLow8-15 [facility] Hospitalerum or plasma calcidiol measurement (mass/volume)on 680482-xhwunigdoqoomt D3 [Mass/Vol]Serum or plasma calcidiol measurement (mass/volume)31.0-80.0[facility] Comment on above:Classification of 25 [place] Vitamin D status: Deficiency/Insufficiency: < or = 30 ng/ml.Sufficiency/Optimal Levels: 31-80 ng/mLToxicity: > 100 ng/mL. Test performed by chemiluminescent immunoassay.Vit B12 SerPl-mCncon 83-49-6786Qadktilfi (Vitamin B12) [Mass/Vol]729 pg/mLNormal 232-1245[place] [facility] HospitalComment on above:Order Comment: Specimen Type: BLOOD SPECIMENOrdering Facility: [facility] Address:[address] [place], [place] [address]Performed By: #### 2143-6, 2132-9 ####[facility] LABCLIA [id number] [place] [address] [place] OF AMERICAUS Chest limitedon 69-26-4928Qkvrzegmp Clinic ALBUMINon 00-03-1433Alywfrw [Mass/Vol]3.9 g/dL3.9 - 4.9 g/dLAdena Pike Medical Center Albumin (Body fld) [Mass/Vol]on 41-50-1815Jxyck Nom (Body fld)Pleural Cavity, RightNormalCleveland Clinic ClevelandComment on above:Order Comment: Specimen Type: SPECIMEN FROM PLEURA OBTAINED BY THORACENTESISOrdering Facility: [facility] Address: [address] [place], [place] [address]Result Comment: recurrent pleual effusion on rightPerformed By: #### 2529-6, 2881-1, 174-5 ####[facility] LABCLIA [id number] [place] [address] [place] AMERICAAlbumin Fld-mCncon 07-20-2024 Albumin (Body fld) [Mass/Vol]1.4 g/dLNormalSee CommentTrihealth Bethesda Butler Hospital Comment on above:Order Comment: Specimen Type: SPECIMEN FROM PLEURA OBTAINED BY THORACENTESISOrdering Facility: [facility] Address: [address] [place], [place] [address]Result Comment: Body Fluid Albumin may be used [...] document C49A. RAJEEV Bui: Clinical Laboratory Standards [place]: 2007.2. Dionicio SERNA. Serum to ascites albumin gradient. UpToDate. 2015. Accessed on September 28, 2015.Performed By: #### 2529-6, 2881-1, 174-5 ####[facility] LABCLIA [id number] [place] [address] [place] AMERICAAlbumin SerPl-mCncon 07-20-2024 Albumin [Mass/Vol]3.9 g/dLNormal3.9-4.9CTriHealth Bethesda North Hospital on above:Order Comment: Specimen Type: BLOOD SPECIMENOrdering Facility: [facility] Address:[address] [place], [place] [address]Performed By: #### 1751-7, 2885-2 ####[facility] LABCLIA [id number] [facility] HOSPITALNiecy AVENUEDESK [id number] [place] [address] [place] OF AMERICACNOVon 69-89-0795IZWZ NormalTrihealth Bethesda Butler HospitalLACTATE DEHYDROGENASEon 49-59-2054WVI [Catalytic activity/Vol]293 U/RXldw912 - 225 U/LCleveland ClinicComment on above:Hemolysis present. The origin of the hemolysis, in vitro versus an in vivo hemolytic process, cannot be distinguished via this assay alone. In vitro hemolysis may lead to non-physiological (spurious)elevation in lactate dehydrogenase (LDH) results. The result should be interpreted in context of the clinical setting and other test results. Suggest reorder as clinically indicated. LDH Fld-cCncon 98-94-5751TMR (Body fld) [Catalytic activity/Vol]167 U/LNormalSee CommentTrihealth Bethesda Butler HospitalComascension borgess allegan hospital on above:Order Comment: Specimen Type: SPECIMEN FROM PLEURA OBTAINED BY THORACENTESISOrdering Facility: [facility] Address: [address] [place], [place] [address]Result Comment: Pleural fluids: Pleural fluid lactate dehydrogenase [...] document C49A. RAJEEV Bui: Clinical Laboratory Standards [place]: 2007.Reference: 2. Rafael STARK, Fei Doyle. Body fluid analysis: clinical utility and applicability of published studies to guide interpretation of today's laboratory testing in serous fluids. Crit Rev Clin Lab Sci, 2013:50(4,5):107 to 124.Reference: 3. Pejovic M, Georgia Randolph DR. Lactate dehydrogenase activity and its isoenzymes in serum and synovial fluid of patients with rheumatoid arthritis and osteoarthritis. J Rheumatol. 1992:19:529 to 533. Performed By: #### 2529-6, 2881-1, 1747-5 ####[facility] LABCLIA [id number] [facility] [id number] [place], [place] [address] [facility] [place] SerPl-cCncon 75-59-3637KZZ [Catalytic activity/Vol]293 U/JTvng743-633 [facility] HospitalComascension borg[facility] on above:Order Comment: Specimen Type: BLOOD SPECIMENOrdering Facility: [facility] Address:[address] [place], [place] [address]Result Comment: Hemolysis present. The origin of the hemolysis, in vitro versus an in vivo hemolytic process, cannot be distinguished via this assay alone. In vitro hemolysis may lead to non-physiological (spurious) elevation in lactate dehydrogenase (LDH) results. Theresult should be interpreted in context of the clinical setting and other test results. Suggest reorder as clinically indicated.Performed By: #### 2532-0 ####[facility] CAMPUSIA [id number] [place] [id number] [facility]ERYLD [Catalytic activity/Vol]on 17-91-0224Wugybfjqbzcccj and review of laboratory resultsAbnormDayton Osteopathic Hospital Laboratory - Chemistry and Chemistry - challengeon 71-42-7728Tzhmrtg [Mass/Vol] 3.9 g/dL3.9-4.9Berger HospitalLDH [Catalytic activity/Vol]293 U/WQwwy640-077UjmhwbedoBerger HospitalComment on above:Hemolysis present. The origin of the hemolysis, in vitro versus an in vivo hemolytic process, cannot be distinguished via this assay alone. In vitro hemolysis may lead to non-physiological (spurious)elevation in lactate dehydrogenase (LDH) results. The result should be interpreted in context of the clinical setting and other test results. Suggest reorder as clinically indicated.No Panel Information on 94-61-2834Nvpedyquoqitry and review of laboratory resultsNoUC West Chester HospitalPROTEIN, TOTALon 85-47-1245Dhzopkm [Mass/Vol]7.6 g/dL6.3 - 8.0 g/dLAdena Pike Medical CenterProt Fld-mCncon 83-49-0142Chzkwoa (Body fld) [Mass/Vol] 2.2 g/dLNormalSee CommentPremier Health Miami Valley Hospital on above:Order Comment: Specimen Type: SPECIMEN FROM PLEURA OBTAINED BY THORACENTESISOrdering Facility: [facility] Address: [address] [place], [place] [address]Result Comment: Serous fluids: Effusions are the accumulation [...] document C49A. Hao, [place]: Clinical Laboratory Standards [place]: 2007.Performed By: #### 2529-6, 2881-1, 1747-5 ####[facility] LABCLIA [id number] [place] [address] [place] AMERICAProt SerPl-mCncon 07-20-2024 Protein [Mass/Vol]7.6 g/dLNormal6.3-8.0[facility] on above:Order Comment: Specimen Type: BLOOD SPECIMENOrdering Facility: [facility] Address:[address] [place], [place] [address]Performed By: #### 1751-7, 2885-2 ####[facility] LABCLIA [id number] [place] [address] [place] AMERICAProtein [Mass/volume] in Serum or Plasmaon 64-79-2530Lsrrlsi [Mass/Vol]Protein [Mass/volume] in Serum or Plasma6.3-8.0Berger HospitalUS Chest limitedon 07-20-2024 Radiology Study observation (narrative)[facility] CenterXR CHEST 2V FRONTAL/LATon 62-17-5333UJ CHEST 2V FRONTAL/LATNormalCUniversity Hospitals Parma Medical CenterXR Chest PA and Lateralon 60-02-4806ITZVEECRVR: Decreased size of small right pleural effusion. Rebar Fabricator: ALONSO Transcribe Date/Time: Jul 20 2024 12:41P Dictated by : PANCHO CANALES MD This examination was interpreted and the report reviewed and electronically signed by: ANALY ALONSO MD on Jul 20 2024 1:49PM [facility] DIVISION OF RADIOLOGY* * *Final Report* * * DATE OF [...] present within the thoracic spine. DIVISION OF RADIOLOGYProvider, [facility] [place] - 07/20/2024 * * *Final Report* * [...] Decreased size of small right pleural effusion. Rebar Fabricator: ALONSO Transcribe Date/Time: Jul 20 2024 12:41P Dictated by : PANCHO CANALES MD This examination was interpreted and the report reviewed and electronically signed by: ANALY ALONSO MD on Jul 20 2024 1:49PM [facility] SystemRadiology Study observation (narrative)[facility] Chest PA and LateralOrdered By: Ccf Provider on 84-95-4323Volxctmcp ClinicCNPNon 38-75-9916JPYYDwprpwMbeqljbdh Clinic ClevelandCNPNon 35-85-5242MOFAZwvkmr [facility] HospitalBODY FLUID CELL COUNTon 51-17-6457Vcnzyef (Unsp spec) ClearNormalClearPremier Health Miami Valley Hospital on above:Order Comment: Specimen Type: SPECIMEN FROM PLEURA OBTAINED BY THORACENTESISOrdering Facility: [facility] Address: [address] [place] [address] Performed By: #### CCBF, [id number] ####[facility] LABCLIA [id number] [place] [address] [place] Color (Body fld)YellowNormalYellowPremier Health Miami Valley Hospital on above: Order Comment: Specimen Type: SPECIMEN FROM PLEURA OBTAINED BY THORACENTESISOrdering Facility: [facility] Address: [address] [place], [place] [address]Performed By: #### CCBF, [id number] ####[facility] LABCLIA [id number] [place] [address] [place] AMERICARBC Manual cnt (Body fld) [#/Vol]<2000Normal<2000 [facility] on above:Order Comment: Specimen Type: SPECIMEN FROM PLEURA OBTAINED BY THORACENTESISOrdering Facility: [facility] Address: [address] [place], [place] [address]Performed By: #### CCBF, [id number] ####[facility] LABCLIA [id number] [place] [id number] [place] OF AMERICASpecimen source Nom (Body fld)Pleural Cavity, RightAvita Health System on above:Order Comment: Specimen Type: SPECIMEN FROM PLEURA OBTAINED BY THORACENTESISOrdering Facility: [facility] Address: [address] [place], [place] [address]Performed By: #### CCDIONICIO, [id number] ####[facility] LABCLIA [id number] [place] [address] [place] AMERICAWBC Manual cnt (Body fld) [#/Vol]408 /uLNormal<1000 [facility] on above:Order Comment: Specimen Type: SPECIMEN FROM PLEURA OBTAINED BY THORACENTESISOrdering Facility: [facility] Address: [address] [place], [place] [address]Performed By: #### CAPO, [id number] ####[facility] LABCLIA [id number] [place] [address] [place] AMERICACNOVon 82-13-2250VIMLJstqdtDjbzdhzewSelect Medical TriHealth Rehabilitation HospitalFLOW CYTOMETRY FOR LEUKEMIA/LYMPHOMA (FCLL) PERFORMABLEon 44-05-8362KQET CYTOMETRY ORDER STATUS Results will be reported under F case ID when completedAvita Health System on above:Order Comment: Specimen Type: SPECIMEN FROM PLEURA OBTAINED BY THORACENTESISOrdering Facility: [facility] Address: [address] [place], [place] [address]Performed By: #### FCLLP ####[facility] LABIA [id number] [place] [address] [place] [facility] HOSPITALFLOW CYTOMETRY FOR LEUKEMIA/LYMPHOMA (FCLL) REFLEX on 71-35-1752URXHYCCDV COMMENTAvita Health System on above: Order Comment: Specimen Type: SPECIMEN FROM PLEURA OBTAINED BY THORACENTESISOrdering Facility: [facility] Address: [address] [place], [place] [address]Result Comment: This test was developed and its performance characteristics determined by [facility] Pathology and Laboratory Medicine [place] ([facility]PLMI). It has not been cleared or approved by the FDA. [facility] is regulated under CLIA as qualified to perform high-complexity testing. This test is used for clinical purposes. It should not be regarded as investigational orfor research.Performed By: #### FCLLRFLX ####[facility] LABCLIA [id number] [address] STATES OF [facility] HOSPITALFINAL PERFORMING LABNormal [facility] on above:Order Comment: Specimen Type: SPECIMEN FROM PLEURA OBTAINED BY THORACENTESISOrdering Facility: [facility] Address: [address] [place], [place] [address]Result Comment: Diagnostic interpretation performed at [facility], [address] [place], [place] [address]IA# [id number] Director: Ramos Strickland M.D. Performed By: #### FCLLRFLX ####[facility] LABIA [id number] [address] FLOW CYTOMETRY RESULTSNormalCTriHealth Bethesda North Hospital on above:Order Comment: Specimen Type: SPECIMEN FROM PLEURA OBTAINED BY THORACENTESISOrdering Facility: [facility] Address: [address] [place], [place] [address]Result Comment: Specimen type: Pleural fluidTotal nucleated cell count: 408 /uLRed blood cell count: <2,000 /uLDifferential (serous fluid): Neutrophil: 6; Lymphocytes: 80; Monocyte: 6; Macrophage:6; Eosinophil: 0; Mesothelial: 1; Reactive lymphocyte: 1Morphology comments: lymphocyte-rich effusionViability: 100%Results:Lymphocyte gate: 95% of total eventsFlow Cytometry Body Fluid ImmunophenotypingMarker Normal Cell Type Result (Lymphocytes)CD2 T/NK cells Normal PatternCD3 T-cells Normal PatternCD4 T-cell subset Normal PatternCD5 T- cells Normal PatternCD7 T/NK-cells Normal PatternCD8 T-cellsubset Normal OcneqldOF55 B-cell subset Normal LmtwmhvQH40 Myeloid Normal RdlrjifWB15/56 NK cells Normal WtgztqhOA47 B-cells Normal TrttnraOQ69 B-cells Normal BsofpqlWH70 B-cells subset Normal YgudonmMI98 Ramos-leukocyte Normal QzhzcbjDM872 Dendritic Normal BjeqzdfYW083 B-cells Normal Patternkappa/lambda B-cells Normal PatternTRBC1 T-cells Normal, polytypicFlow cytometric analysis of the pleural fluid reveals that 95% of total events have the CD45 and side scatter properties of lymphocytes.The lymphocytes are composed of a mixture of heterogeneous T- cells (75%; CD4:CD8 ratio = 2.48), NK cells (15%) and polytypic B-cells (8%).OVN/NZ 06/23/2024Performed By: #### FCLLRFLX ####[facility] LABIA [id number] [address] STATES OF [facility] HOSPITALGROSS DESCRIPTIONNormalCUniversity Hospitals Parma Medical CenterComment on above: Order Comment: Specimen Type: SPECIMEN FROM PLEURA OBTAINED BY THORACENTESISOrdering Facility: [facility] Address: [address] [place], [place] [address]Result Comment: A. Pleural Cavity, RightRECEIVED 10 MLS PLEURAL FLUIDPerformed By: #### FCLLRFLX ####[facility] WEST CAMPUSIA [id number] [address] STATES [facility] CENTERINTERPRETATIONNormalCUniversity Hospitals Parma Medical CenterComment on above:Order Comment: Specimen Type: SPECIMEN FROM PLEURA OBTAINED BY THORACENTESISOrdering Facility: [facility] Address: [address] [place], [place] [address]Result Comment: There is no immunophenotypic evidence of involvement by a lymphoproliferative disorder. Correlation with the clinical findings is suggested. Performed By: #### FCLLRFLX ####[facility] LABIA [id number] [address] STATES OF [place] Glucose Fld-mCncon 65-33-5564Kuccarh (Body fld) [Mass/Vol]112 mg/dLNormalSee CommentPremier Health Miami Valley Hospital on above:Order Comment: Specimen Type: SPECIMEN FROM PLEURA OBTAINED BY THORACENTESISOrdering Facility: [facility] Address: [address] [place], [place] [address]Result Comment: Synovial fluid: Synovial fluid glucose measurement may be [...] document C49A. RAJEEV Bui: Clinical Laboratory Standards [place]: 2007. Performed By: #### 2344-0, 2529-6, 2881-1 ####[facility] LABCLIA [id number] [address] OF [facility]TE HOSPITALHISTORY PHYSICALon 83-05-6253PACCYVS PHYSICALNormalClevelOhioHealth Doctors Hospital Fld-cCncon 41-90-0761KNL (Body fld) [Catalytic activity/Vol]100 U/L NormalSee CommentPremier Health Miami Valley Hospital on above:Order Comment: Specimen Type: SPECIMEN FROM PLEURA OBTAINED BY THORACENTESISOrdering Facility: [facility] Address: [address] [place], [place] [id number] Comment: Pleural fluids: Pleural fluid lactate dehydrogenase [...] document C49A. RAJEEV Bui: Clinical Laboratory Standards [place]: 2007.Reference: 2. Rafael STARK, Fei Doyle. Body fluid analysis: clinical utility and applicability of published studies to guide interpretation of today's laboratory testing in serous fluids. Crit Rev Clin Lab Sci, 2013:50(4,5):107 to 124.Reference: 3. Flaca Najera, Georgia Randolph DR. Lactate dehydrogenase activity and its isoenzymes in serum and synovial fluid of patients with rheumatoid arthritis and osteoarthritis. J Rheumatol. 1992:19:529 to 533. Performed By: #### 2344-0, 2529-6, 2881-1 ####[facility] LABCLIA [id number] [place] [address] [place] AMERICAMANUAL DIFFERENTIAL, BODY FLUIDon 34-58-9776OQY TTL, BODY UKRWG877 cells countedNormalCTriHealth Bethesda North Hospital on above:Order Comment: Specimen Type: SPECIMEN FROM PLEURA OBTAINED BY THORACENTESISOrdering Facility: [facility] Address: [address] [place], [place] [address]Performed By: #### CCBF, [id number] ####[facility] LABCLIA [id number] [place] [address] [place] AMERICALYMPH%, BF80 % Jxhd55-30PppvtrfzrPremier Health Miami Valley Hospital on above:Order Comment: Specimen Type: SPECIMEN FROM PLEURA OBTAINED BY THORACENTESISOrdering Facility: [facility] Address: [address] [place], [place] [address]Performed By: #### CCDIONICIO, [id number] ####[facility] LABCLIA [id number] [place] [id number] [place] AMERICAMACRO%, BF6 % Krz33-66LzrpzzuchPremier Health Miami Valley Hospital on above:Order Comment: Specimen Type: SPECIMEN FROM PLEURA OBTAINED BY THORACENTESISOrdering Facility: [facility] Address: [address] [place], [place] [address]Performed By: #### CCBF, [id number] ####[facility] LABCLIA [id number] [place] [id number] [place] AMERICAMESO %, BF1 % Normal0-2ClevelTrinity Health System East Campus on above:Order Comment: Specimen Type: SPECIMEN FROM PLEURA OBTAINED BY THORACENTESISOrdering Facility: [facility] Address: [address] [place], [place] [address]Performed By: #### CCBF, [id number] ####[facility] LABCLIA [id number] [place] [id number] [place] AMERICAMONO% BF6 % [facility] on above:Order Comment: Specimen Type: SPECIMEN FROM PLEURA OBTAINED BY THORACENTESISOrdering Facility: [facility] Address: [address] [place], [place] [address]Performed By: #### CCBF, [id number] ####[facility] LABCLIA [id number] [place] [address] [place] AMERICANEUT%, BF6 % High0-1CTriHealth Bethesda North Hospital on above:Order Comment: Specimen Type: SPECIMEN FROM PLEURA OBTAINED BY THORACENTESISOrdering Facility: [facility] Address: [address] [place], [place] [address]Performed By: #### CCBF, [id number] ####[facility] LABCLIA [id number] [place] [id number] [place] AMERICAREAC LYMPH %, BF1 %NormalPremier Health Miami Valley Hospital on above:Order Comment: Specimen Type: SPECIMEN FROM PLEURA OBTAINED BY THORACENTESISOrdering Facility: [facility] Address: [address] [place], [place] [address]Performed By: #### CCBF, [id number] ####[facility] LABCLIA [id number] [place] [address] [place] AMERICAOPERATIVE NOon 27-35-3422CKVVQOOVZ NONormalCleSt. Elizabeth HospitalProt Fld-mCncon 06-22-2024 Protein (Body fld) [Mass/Vol]2.6 g/dLNormalSee CommentTrihealth [facility]hesda [facility] Hospital Comment on above:Order Comment: Specimen Type: SPECIMEN FROM PLEURA OBTAINED BY THORACENTESISOrdering Facility: [facility] Address: [address] [place], [place] [address]Result Comment: Serous fluids: Effusions are the accumulation of clinically detected fluid in any of the serous cavities. Effusions are further into transudates and exudates, which aid in de termining the etiology of the effusion.Transudate: Body fluid [...] document C49A. RAJEEV Bui: Clinical Laboratory Standards [place]: 2007.Performed By: #### 2344-0, 2529-6, 2881-1 ####[facility] LABCLIA [id number] [place] [address] [place] CNOVon 89-61-7504RUTIYabzndHiyjfvbcj Clinic ClevelandBac metabolic 2000 panel on 58-17-7632Xgkhy gap [Moles/Vol]13 mmol/LNormal8-15[facility] Comment on above:Order Comment: Specimen Type: BLOOD SPECIMENOrdering Facility: [facility] Address:[address] [place] [address] Performed By: #### 43962-3 ####[facility] LABCLIA [id number] [place] [address] [place] Calcium [Mass/Vol]9.3 mg/dLNormal8.5-10.2CUniversity Hospitals Parma Medical CenterComment on above:Order Comment: Specimen Type: BLOOD SPECIMENOrdering Facility: [facility] Address:[address] [place], [place] [address]Performed By: #### 96623-5 ####[facility] LABCLIA [id number] [place] [address] [place] AMERICAChloride [Moles/Vol] 100 mmol/GAoyegt85-565WzoyvmqhiPremier Health Miami Valley Hospital on above:Order Comment: Specimen Type: BLOOD SPECIMENOrdering Facility: [facility] Address:[address] [place], [place] [address]Performed By: #### 59078-1 ####[facility] LABIA [id number] [place] [address] [place] AMERICACO2 [Moles/Vol]29 mmol/LNormal 22-30[facility] on above:Order Comment: Specimen Type: BLOOD SPECIMENOrdering Facility: [facility] Address:[address] [place], [place] [address]Performed By: #### 17644-4 ####[facility] [id number] [place] [address] [place] AMERICACreatinine [Mass/Vol]1.19 mg/dLNormal0.73-1.22[facility] on above:Order Comment: Specimen Type: BLOOD SPECIMENOrdering Facility: [facility] Address:[address] [place], [place] [address]Performed By: #### 76425-9 ####[facility] [id number] [place] [address] [place] Creatinine and Glomerular filtration rate.predicted panel (S/P/Bld)64 mL/min/1.73m???Normal>=60[facility] on above:Order Comment: Specimen Type: BLOOD SPECIMENOrdering Facility: [facility] Address:[address] [place], [place] [address]Result Comment: Estimated Glomerular Filtration Rate (eGFR) is calculated using the 2020 CKD-EPI cre atinine equation. This equation utilizes serum creatinine, sex, and age as parameters. The creatinine assay has traceable calibration to isotope dilution- mass spectrometry. Refer to KDIGO guidelines for clinical interpretation. In patients with unstable renal function, e.g. those with acute kidney injury, the eGFR may not accurately reflect actual GFR.Performed By: #### 53471-0 ####[facility] LABIA [id number] [place] [address] [place] AMERICAGlucose [Mass/Vol]158 mg/dLHigh 74-99[facility] on above:Order Comment: Specimen Type: BLOOD SPECIMENOrdering Facility: [facility] Address:[address] [place], [place] [address]Result Comment: The [place] Diabetes Association (ADA) provides [...] unequivocal hyperglycemia, results should be confirmed by repeattesting. In a patient with classic symptoms of hyperglycemia or hyperglycemic crisis, random plasmaglucose results greater than or equal to 200 mg/dL meet the criteria for diagnosis of diabetes.Reference: Standards of Medical Care in Diabetes 2016, [place] [employer]. Diabetes Care. 2016.39(Suppl 1).Performed By: #### 81102-8 ####[facility] LABIA [id number] [place] [address] [place] AMERICAPotassium [Moles/Vol]4.1 mmol/L Normal3.7-5.1CTriHealth Bethesda North Hospital on above:Order Comment: Specimen Type: BLOOD SPECIMENOrdering Facility: [facility] Address:[address] [place] [id number] By: #### 86944-5 ####[facility] LABIA [id number] [place] [id number] [place] AMERICASodium [Moles/Vol]142 mmol/GXdlpah916-678EvuxbveqfPremier Health [facility] Hospital on above:Order Comment: Specimen Type: BLOOD SPECIMENOrdering Facility: [facility] Address:[address] [place], [place] [address]Performed By: #### 31048-1 ####[facility] LABCLIA [id number] [place] [address] [place] AMERICAUrea nitrogen [Mass/Vol]28 mg/dLHigh9-24[facility] Comment on above:Order Comment: Specimen Type: BLOOD SPECIMENOrdering Facility: [facility] Address:[address] [place] [address] Performed By: #### 43062-7 ####[facility] LABCLIA [id number] [place] [address] [place] CNPNon 33-09-3999BFFNKbahtqEneoauucm Clinic ClevelandALBUMIN, BODY FLUIDon 95-24-2537Mxidzix (Body fld) [Mass/Vol]1.4 g/dLSee CommentAdena Pike Medical Center Comment on above:Body Fluid Albumin may be used in classifying [...] 1.1 g/dL, ascites generated from conditions without portalhypertension should be considered. Reference: 1. CLSI. Analysis of Body Fluids in Clinical Chemistry Approved Guideline. CLSI document C49A. RAJEEV Bui: Clinical Laboratory Standards [place]: 2007. 2. Dionicio SERNA. Serum to ascites albumin gradient. UpToDate. 2015. Accessed on September 28, 2015. BODY FLUID CELL COUNTOrdered By: Britton Andrews on 35-44-7888ZRN Manual cnt (Body fld) [#/Vol]/uLNINF - 2000 /uLMcCullough-Hyde Memorial Hospitalpecimen source Nom (Body fld) Pleural Cavity, RightAdena Pike Medical CenterW Manual cnt (Body fld) [#/Vol]443 /uL NINF - 1000 /uLGreene Memorial HospitalCHOLESTEROL BFLon 05-19-2024 Cholesterol (Body fld) [Mass/Vol]30 mg/dLSee CommentCleohiohealth grant medical center ClinicComment on above:SYNOVIAL FLUIDS: Synovial fluid cholesterol measurement may be [...] document C49-A. RAJEEV Bui: Clinical Laboratory Standards [place]; 2007. Comprehensive metabolic 2000 panelon 85-06-8464Zylgkrd [Mass/Vol]3.8 g/dLLow3.9 - 4.9 g/dLChappell Hill ClinicALP [Catalytic activity/Vol]174 U/LHigh38 - 113 U/L [facility]ALT [Catalytic activity/Vol]22 U/L10 - 54 U/LCleveland [facility] Anion gap [Moles/Vol]16 mmol/LHigh8 - 15 mmol/LCleveland ClinicAST [Catalytic activity/Vol]28 U/L14 - 40 U/LCleveland ClinicBilirubin [Mass/Vol]0.7 mg/dL0.2 - 1.3 mg/dLChappell Hill ClinicCalcium [Mass/Vol]9.1 mg/dL8.5 - 10.2 mg/dLChappell Hill ClinicChloride [Moles/Vol]98 mmol/L98 - 107 mmol/LCleveland ClinicCO2 [Moles/Vol]28 mmol/L22 - 30 mmol/LCleveland ClinicCreatinine [Mass/Vol]1.14 mg/dL0.73 - 1.22 mg/dLChappell Hill ClinicGFR/1.73 sq M.predicted among non-blacks MDRD (S/P/Bld) [Vol rate/Area]68 mL/min/{1.73_m2}- PINFCleveland ClinicComment on above:Estimated Glomerular Filtration Rate (eGFR) is calculated using the 2020 CKD-EPI creatinine equation. This equation utilizes serum creatinine, sex, and age as parameters. The creatinine assay has traceable calibration to isotope dilution-mass spectrometry. Refer to KDIGO guidelines for clinical inte rpretation. In patients with unstable renal function, e.g. those with acute kidney injury, the eGFRmay not accurately reflect actual GFR.Glucose [Mass/Vol] 112 mg/fDOdqy62 - 99 mg/dLAdena Pike Medical CenterComment on above:The [place] Diabetes Association (ADA) provides guidance for [...] [place] Diabetes Association. Diabetes Care. 2016.39(Suppl 1). Interpretation and review of laboratory resultsAbnormalCleveland ClinicPotassium [Moles/Vol]3.4 mmol/LLow3.7 - 5.1 mmol/LCleveland ClinicProtein [Mass/Vol]6.6 g/dL6.3 - 8.0 g/dLChappell Hill ClinicSodium [Moles/Vol]142 mmol/L136 - 144 mmol/L [facility] Medical CenterUrea nitrogen [Mass/Vol]21 mg/dL9 - 24 mg/dLAdena Pike Medical Center GLUCOSE, BODY FLUIDon 63-03-5575Fflhvtl (Body fld) [Mass/Vol]106 mg/dLSee CommentAdena Pike Medical CenterComment on above:Synovial fluid: Synovial fluid glucose measurement may be [...] Fluids in Clinical Chemistry Approved Guideline. CLSI [id number]. RAJEEV Bui: Clinical Laboratory Standards [place]: 2007. LACTATE DEHYDROGENASEon 16-13-7356HTC [Catalytic activity/Vol]209 U/L135 - 225 U/LCleveland ClinicComment on above:Hemolysis present. The origin of the hemolysis, in vitro versus an in vivo hemolytic process, cannot be distinguished via this assay alone. In vitro hemolysis may lead to non-physiological (spurious)elevation in lactate dehydrogenase (LDH) results. The result should be interpreted in context of the clinical setting and other test results. Suggest reorder as clinically indicated. LACTATE DEHYDROGENASE, BODY FLUIDon 58-45-3263UOS (Body fld) [Catalytic activity/Vol]86 U/LSee CommentCleohiohealth grant medical center ClinicComment on above:Pleural fluids: Pleural fluid lactate dehydrogenase (LDH) measurements [...] Fluids in Clinical Chemistry Approved Guideline. CLSI [id number]. Hao, PA: Clinical Laboratory Standards [place]: 2007. Reference: 2. Rafael STARK, Fei Doyle. Body fluid analysis: clinical utility and applicability of published studies to guide interpretation of today's laboratory testing in serous fluids. Crit Rev Clin Lab Sci, 2013:50(4,5):107 to 124. Reference: 3. Flaca Najera, Dougie A, [place] STARK. Lactate dehydrogenase activity and its isoenzymes in serum and synovial fluid of patients with rheumatoid arthritis and osteoarthritis. J Rheumatol.1992:19:529 to 533. LDH [Catalytic activity/Vol]on 29-25-9589Nkttsjrugnxfbd and review of laboratory resultsNormalCleveland ClinicLaboratoryon 78-99-5564Hzbue Nom (Body fld)Pleural Cavity, RightAdena Pike Medical CenterLaboratory - Specimen informationOrdered By: Britton Andrews on 69-34-9128Rxcskcp (Unsp spec)ClearClearCleveland ClinicColor (Body fld)YellowYellowAdena Pike Medical CenterNo Panel Informationon 00-54-5095Qhrskncgw [facility] HospitalPH PLEURAL FLUID (FOR USE OUTSIDE OF [facility])on 05-19-2024 Fluid Nom (Body fld)Pleural Cavity, RightAdena Pike Medical CenterpH (Body fld)7.9 [pH] [facility] on above:No reference range has been established for this specimen type. This test was developed, and its performance characteristics determined by the [facility] Department of Pathology and Laboratory Medicine. It has not been cleared or approved by the FDA. The [facility] Department of Pathology and Laboratory Medicine is regulated under CLIA as qualified to perform high-complexity testing. This test is used for clinical purposes. It should not be regarded as investigational or for research. [facility] CenterPROTEIN, BODY FLUIDon 62-97-6902Btxtpdv (Body fld) [Mass/Vol]2.2 g/dLSee CommentAultman Orrville Hospitalment on above:Serous fluids: Effusions are the accumulation of clinically [...] g/dL. A ratio of serous fluid total proteinto a concurrent serum total protein >= 0.5 indicates an exudate. Reference: 1. CLSI. Analysis of Body Fluids in Clinical Chemistry Approved Guideline. CLSI [id number]. Hao PA: Clinical Laboratory Standards [place]: 2007. TRIGLYCERIDE BFLon 26-26-8425Vhzjgcdohvdk (Body fld) [Mass/Vol]13 mg/dLAultman Orrville Hospitalment on above:Synovial fluids: Synovial fluid triglycerides measurement may be [...] measurement <=110 mg/dL is suggestive of a nonchylouseffusion. Reference: 1. CLSI. Analysis of Body Fluids in Clinical Chemistry; Approved Guideline. CLSI document C49A. Hao PA: Clinical Laboratory Standards [place]; 2007. Albumin Fld-ncon 06-81-7313Fsxexuz (Body fld) [Mass/Vol]1.4 g/dLNormalSee CommentPremier Health Miami Valley Hospital on above:Order Comment: Specimen Type: FLUID SPECIMENOrdering Facility: [facility] Address:[address] [place], [place] [address]Result Comment: Body Fluid Albumin may be used [...] document C49A. RAJEEV Bui: Clinical Laboratory Standards [place]: 2007.2. Dionicio SERNA. Serum to ascites albumin gradient. UpToDate. 2015. Accessed on September 28, 2015.Performed By: #### 2344-0, 2529-6, 2881-1, 85077-1, 80398-5, 1747-5 ####[facility] LABCLIA [id number] [address] [place] BF STAFF REVIEW (LAB ORDER)on 87-91-3105QK REVIEWReviewed by Lisy Acuña M.D., Ph.DNormalPremier Health Miami Valley Hospital on above:Order Comment: Specimen Type: FLUID SPECIMENOrdering Facility: [facility] Address:[address] [place], [place] [address]Performed By: #### CCBF, [id number], [id number] ####[facility] LABCLIA [id number] [address] OF [facility] HOSPITALBF STAFF COMMENTS Numerous mature polymorphous lymphocytes. If there is clinical concern for a lymphoproliferative disorder, please order flow cytometric analysis.Normal [facility] on above:Order Comment: Specimen Type: FLUID SPECIMENOrdering Facility: [facility] Address:[address] [place], [place] [address]Performed By: #### CCBF, [id number], [id number] ####[facility] LABCLIA [id number] [place] [address] [place] OF AMERICABODY FLUID CELL COUNTon 01-08-5683Uynvftk (Unsp spec)ClearNormalClearPremier Health Miami Valley Hospital on above:Order Comment: Specimen Type: FLUID SPECIMENOrdering Facility: [facility] Address:[address] [place], [place] [address]Performed By: #### CCBF, [id number], [id number] ####[facility] LABCLIA [id number] [place] [address] [place] AMERICAColor (Body fld)Yellow NormalYellowPremier Health Miami Valley Hospital on above:Order Comment: Specimen Type: FLUID SPECIMENOrdering Facility: [facility] Address:[address] [place], [place] [address]Performed By: #### CCBF, [id number], [id number] ####[facility] LABCLIA [id number] [place] [address] [place] AMERICARBC Manual cnt (Body fld) [#/Vol] <2000Normal<2000[facility] on above:Order Comment: Specimen Type: FLUID SPECIMENOrdering Facility: [facility] Address:[address] [place], [place] [address]Performed By: #### CCBF, [id number], [id number] ####[facility] LABCLIA [id number] [place] [address] [place] AMERICASpecimen source Nom (Body fld)Pleural Cavity, RightNormalCTriHealth [facility] on above: Order Comment: Specimen Type: FLUID SPECIMENOrdering Facility: [facility] Address:[address] [place], [place] [address]Performed By: #### CCBF, [id number], [id number] ####[facility] LABCLIA [id number] [place] [address] [place] AMERICAWBC Manual cnt (Body fld) [#/Vol]443 /uLNormal<1000[facility] on above:Order Comment: Specimen Type: FLUID SPECIMENOrdering Facility: [facility] Address:[address] [place], [place] [address]Performed By: #### CCBF, [id number], [id number] ####[facility] LABCLIA [id number] [place] [address] [place] AMERICABacteria Fld Culton 06-10-9518Fxxklfgc identified Cx Nom (Body fld)CULTURE, BODY FLD: No growth GRAM STAIN: No organisms seen Few Polymorphonuclear leukocytes Many Mononuclear cells Gram stain performed on cytospun specimen. Gram stain from primary specimenNormalPremier Health Miami Valley Hospital on above:Performed By: #### 611-4, 65233-4 ####[facility] LABCLIA [id number] [place] [address] [place] AMERICACNOVon 73-29-3762MZCMXqkjukJoljgzgck Clinic ClevelandCYTOLOGY NON-GYNon 28-78-9619MJST REPORTNormalCTriHealth Bethesda North Hospital on above:Order Comment: Specimen Type: FLUID SPECIMENOrdering Facility: [facility] Address:[address] [place], [place] [address]Result Comment: Medical Cytology Report Case: [id number] Provider: Louise Cesar MD Collected: 05/18/2024 12:43 PMOrdering Location: Pulmonary Medicine Received: 05/19/2024 05:22 AMPathologist: Tracy Collins MDSpecimen: Pleural Cavity, RightPerformed By: #### CYTONON ####[facility] LABCLIA [id number] [address] [address] [place] CLINICAL HISTORYpleural effusionNormAvita Health System on above:Order Comment: Specimen Type: FLUID SPECIMENOrdering Facility: [facility] Address:[address] [place], [place] [address]Performed By: #### CYTONON ####[facility] LABCLIA [id number] [place] [address] [place] AMERICAFINAL DIAGNOSISNormal [facility] on above:Order Comment: Specimen Type: FLUID SPECIMENOrdering Facility: [facility] Address:[address] [place], [place] [address]Result Comment: A - Pleural Cavity, Right, Sterile Fluid/Body Fluid Negative for malignant cells. Chronic inflammation.The following cell blocks were associated with this case:A1\X09\Cell Block, Alcohol Fixed\X09\ Performed By: #### CYTONON ####[facility] LABCLIA [id number] [address] [place] FINAL PERFORMING LABAvita Health System on above:Order Comment: Specimen Type: FLUID SPECIMENOrdering Facility: [facility] Address:[address] [place], [place] [address]Result Comment: Technical component, darkroom technician screening performed at [facility], [address] [place], [place] [address] [place] [id number] CLIA# [id number] interpretation performed at [facility], [address] [place], [place] [address] CLIA# [id number] Director: Ramos Strickland M.D.Performed By: #### CYTONON ####[facility] LABCLIA [id number] [place] [address] [place] AMERICAGROSS DESCRIPTIONNoSelect Medical [facility] Comment on above:Order Comment: Specimen Type: FLUID SPECIMENOrdering Facility: [facility] Address:[address] [place], [place] [address]Result Comment: A. Pleural Cavity, Right20 cc hazy yellow fluid with material. ThinPrep and Cell Block prepared.Performed By: #### CYTONON ####[facility] LABCLIA [id number] [place] [address] [place] AMERICACholest Fld-mCncon 70-64-2161Fhajkydfqbk (Body fld) [Mass/Vol] 30 mg/dLNormalSee CommentPremier Health Miami Valley Hospital on above:Order Comment: Specimen Type: FLUID SPECIMENOrdering Facility: [facility] Address:[address] [place], [place] [address]Result Comment: SYNOVIAL FLUIDS:Synovial fluid cholesterol measurement may be useful in classifying various joint disorders. The reference range for adult synovial fluid cholesterol measurement is less than or equal to 65% of the concurrent plasma cholesterol measurement.SEROUS FLUIDS:Serous fluid cholesterol measurement may be useful in determining the etiology of the effusion. A serous fluid cho lesterol measurement >200 mg/dL is suggestive of a pseudochylous effusion. A serous fluid cholesterol measurement greater than or equal to 45 mg/dL is suggestive of an exudate. A serous fluid cholesterol measurement <45 mg/dL is suggestive of a transudate.Reference:1. CLSI. Analysis of Body Fluids in Clinical Chemistry; Approved Guideline. CLSI document C49-A. RAJEEV Bui: Clinical LaboratoryStandards [place]; 2007.Performed By: #### 2344-0, 2529-6, 2881-1, 26471-6, 02451-4, 1747-5 ####[facility] LABCLIA [id number] [place] [address] [place] AMERICAFluid Nom (Body fld)Pleural Cavity, RightNormalClevelTrinity Health System East Campus on above: Order Comment: Specimen Type: FLUID SPECIMENOrdering Facility: [facility] Address:[address] [place], [place] [address]Performed By: #### 2344- 0, 2529-6, 2881-1, 28076-4, 52766-5, 1747-5 ####[facility] LABCLIA [id number] [place] [address] [place] AMERICAPerformed By: #### [id number] ####[facility] LABCLIA [id number] [place] [address] [place] Comprehensive metabolic 2000 panelon 43-43-4455Tfiznun [Mass/Vol]3.8 g/dLLow 3.9-4.9CTriHealth Bethesda [facility] Hospital on above:Order Comment: Specimen Type: BLOOD SPECIMENOrdering Facility: [facility] Address:[address] [place], [place] [address]Performed By: #### 2532-0, 20618-6 ####[facility] LABIA [id number] [place] [address] [place] AMERICAALP [Catalytic activity/Vol]174 U/GCcer49-681RnpibckvhPremier Health Miami Valley Hospital on above:Order Comment: Specimen Type: BLOOD SPECIMENOrdering Facility: [facility] Address:[address] [place], [place] [address]Performed By: #### 2532-0, 09713-6 ####[facility] LABIA [id number] [address] STATES OF AMERICAALT [Catalytic activity/Vol]22 U/UQsxerp65-03HgtccffxnPremier Health Miami [facility] Hospital on above:Order Comment: Specimen Type: BLOOD SPECIMENOrdering Facility: [facility] Address:[address] [place], [place] [address]Performed By: #### 2532-0, 76311-4 ####[facility] LABIA [id number] [place] [address] [place] Anion gap [Moles/Vol]16 mmol/LHigh8-15[facility] on above:Order Comment: Specimen Type: BLOOD SPECIMENOrdering Facility: [facility] Address:[address] [place], [place] [address]Performed By: #### 2532-0, 30929-8 ####[facility] LABCLIA [id number] [place] [address] [place] AMERICAAST [Catalytic activity/Vol]28 U/LEgkreh59-24FnkenbnyuPremier Health [facility] Hospital on above:Order Comment: Specimen Type: BLOOD SPECIMENOrdering Facility: [facility] Address:[address] [place], [place] [address]Performed By: #### 2532- 0, 81819-8 ####[facility] LABCLIA [id number] [facility] [place] [place] [address] [place] AMERICABilirubin [Mass/Vol]0.7 mg/dLNormal0.2-1.3CTriHealth Bethes[facility] North Hospital on above:Order Comment: Specimen Type: BLOOD SPECIMENOrdering Facility: [facility] Address:[address] [place], [place] [address]Performed By: #### 2532-0, 83324-8 ####[facility] LABIA [id number] [address] STATES OF AMERICACalcium [Mass/Vol]9.1 mg/dLNormal 8.5-10.2CTriHealth Bethes[facility] Hospital on above:Order Comment: Specimen Type: BLOOD SPECIMENOrdering Facility: [facility] Address:[address] [place], [place] [address]Performed By: #### 2532-0, 24977-0 ####[facility] LABIA [id number] [place] [address] [place] AMERICAChloride [Moles/Vol]98 mmol/DBuyljk18-259CizpooqdfPremier Health Miami [facility] Hospital on above:Order Comment: Specimen Type: BLOOD SPECIMENOrdering Facility: [facility] Address:[address] [place], [place] [address]Performed By: #### 2532-0, 37872-2 ####[facility] LABIA [id number] [place] [address] [place] AMERICACO2 [Moles/Vol]28 mmol/RQxgkbb44-18PhambctzsTrihealth [facility] Comment on above:Order Comment: Specimen Type: BLOOD SPECIMENOrdering Facility: [facility] Address:[address] [place] [address] Performed By: #### 2532-0, 98358-9 ####[facility] LABCLIA [id number] [place] [address] [place] Creatinine [Mass/Vol]1.14 mg/dLNormal0.73-1.22[facility] on above:Order Comment: Specimen Type: BLOOD SPECIMENOrdering Facility: [facility] Address:[address] [place] [address] Performed By: #### 2532-0, 18946-9 ####[facility] LABIA [id number] [address] [place] Creatinine and Glomerular filtration rate.predicted panel (S/P/Bld)68 mL/min/1.73m???Normal>=60[facility] on above:Order Comment: Specimen Type: BLOOD SPECIMENOrdering Facility: [facility] Address:[address] [place], [place] [address]Result Comment: Estimated Glomerular Filtration Rate (eGFR) is calculated using the 2020 CKD-EPI cre atinine equation. This equation utilizes serum creatinine, sex, and age as parameters. The creatinine assay has traceable calibration to isotope dilution- mass spectrometry. Refer to KDIGO guidelines for clinical interpretation. In patients with unstable renal function, e.g. those with acute kidney injury, the eGFR may not accurately reflect actual GFR.Performed By: #### 2532-0, 17722-1 ####[facility] LABIA [id number] [place] [address] [place] AMERICAGlucose [Mass/Vol]112 mg/dLHigh 74-99[facility] on above:Order Comment: Specimen Type: BLOOD SPECIMENOrdering Facility: [facility] Address:[address], [place], [place] [address]Gzioyb Comment: The [place] Diabetes Association (ADA) provides [...] unequivocal hyperglycemia, results should be confirmed by repeattesting. In a patient with classic symptoms of hyperglycemia or hyperglycemic crisis, random plasmaglucose results greater than or equal to 200 mg/dL meet the criteria for diagnosis of diabetes.Reference: Standards of Medical Care in Diabetes 2016, [place] [employer] Association. Diabetes Care. 2016.39(Suppl 1).Performed By: #### 2532-0, 40673-9 ####[facility] LABCLIA [id number] [facility] [place] [place] [address] [place] AMERICAPotassium [Moles/Vol]3.4 mmol/LLow3.7-5.1CTriHealth [facility] on above:Order Comment: Specimen Type: BLOOD SPECIMENOrdering Facility: [facility] Address:[address] [place], [place] [address]Performed By: #### 2532-0, 29202-8 ####[facility] LABIA [id number] [place] [address] [place] AMERICAProtein [Mass/Vol]6.6 g/dLNormal 6.3-8.0[facility] on above:Order Comment: Specimen Type: BLOOD SPECIMENOrdering Facility: [facility] Address:[address] [place], [place] [address]Performed By: #### 2532-0, 00408-0 ####[facility] LABIA [id number] [place] [address] [place] AMERICASodium [Moles/Vol]142 mmol/VSuexdz108-364DspwwofjoPremier Health [facility] Hospital on above:Order Comment: Specimen Type: BLOOD SPECIMENOrdering Facility: [facility] Address:[address] [place], [place] [address]Performed By: #### 2532-0, 30691-5 ####[facility] LABCLIA [id number] [place] [address] [place] AMERICAUrea nitrogen [Mass/Vol]21 mg/dLNormal9-24[facility] on above:Order Comment: Specimen Type: BLOOD SPECIMENOrdering Facility: [facility] Address:[address] [place], [place] [address]Performed By: #### 2532-0, 37196-3 ####[facility] LABCLIA [id number] [place] [address] [place] AMERICAFATTY ACIDS PROFILE, ESSENTIALon 61-67-8930J-LINOLENIC ACID, C18 3W343 nmol/uWLmthwp22-523RsdvoxixtTrihealth Bethesda Butler HospitalComascension borgess [facility] on above:Order Comment: Specimen Type: BLOOD SPECIMENOrdering Facility: [facility] Address:[address] [place], [place] [address]Performed By: #### CFAPRO ####[facility]IESCLIA [id number] [place], [place] [address]PSPYNCIWA ACID, C20 018 nmol/mLNormal8-43[facility] on above:Order Comment: Specimen Type: BLOOD SPECIMENOrdering Facility: [facility] Address:[address] [place], [place] [address]Performed By: #### CFAPRO ####[facility]ATORIESCLIA [id number] [place] [address] ARACHIDONIC ACID, C20 2V4784 nmol/uGCnmwjl832-8996NoisvprguTrihealth [facility]hes[facility] Hospital Comment on above:Order Comment: Specimen Type: BLOOD SPECIMENOrdering Facility: [facility] Address:[address] [place] [address] Performed By: #### CFAPRO ####[facility]IESCLIA [id number] [place], [place] [address]YTG, C22 6W399 nmol/lAVslnrd37-299GlhjsttopPremier Health [facility] Hospital on above:Order Comment: Specimen Type: BLOOD SPECIMENOrdering Facility: [facility] Address:[address] [place], [place] [address]Performed By: #### CFAPRO ####[facility]IESCLIA [id number] [place], [place] [address]JORFXOZCXZ ACID, C22 14 nmol/mLNormal1-10[facility] on above:Order Comment: Specimen Type: BLOOD SPECIMENOrdering Facility: [facility] Address:[address] [place], [place] [address]Performed By: #### CFAPRO ####[facility]IESCLIA [id number] [place], [place] [address]NAP, C22 5W330 nmol/mLNormal 13-75[facility] on above:Order Comment: Specimen Type: BLOOD SPECIMENOrdering Facility: [facility] Address:[address] [place], [place] [address]Performed By: #### CFAPRO ####[facility]IESCLIA [id number] [place], [place] [address]XYF, C22 5W613 nmol/mLNormal 6-55[facility] on above:Order Comment: Specimen Type: BLOOD SPECIMENOrdering Facility: [facility] Address:[address] [place], [place] [address]Performed By: #### CFAPRO ####[facility]IESCLIA [id number] [place], [place] [address]PRY, C22 4W618 nmol/mLNormal 10-40Premier [facility] on above:Order Comment: Specimen Type: BLOOD SPECIMENOrdering Facility: [facility] Address:[address] [place], [place] [address]Performed By: #### CFAPRO ####[facility] LABORATORIESCLIA [id number] [place], [place] [address]HHQ FATTY ACIDS PROF, ESSENTIAL SPSee NoteNormalCTriHealth Bethesda North [facility] on above:Order Comment: Specimen Type: BLOOD SPECIMENOrdering Facility: [facility] Address:[address] [place], [place] [address]Result Comment: Authorized individuals can access the ARUPEnhanced Report using the following link:h [email or web address] By: CHACORTA Layton [place], [place] [address]Oqufwokmkc Director: Anne-Marie Correa MD, PhDCLIA Number: [id number] By: #### CFAPRO ####[facility] LABORATORIESCLIA [id number] [place], [place] [address]CRG, C20 5W322 nmol/mLNormal8-130[facility] on above:Order Comment: Specimen Type: BLOOD SPECIMENOrdering Facility: [facility] Address:[address] [place], [place] [address]Performed By: #### CFAPRO ####[facility] HOSPITALCLIA [id number] [place], [place] [id number] ACID, C18 3W620 nmol/oSFsjrfn00-822KfuludwyzKettering Health – Soin Medical Centerment on above: Order Comment: Specimen Type: BLOOD SPECIMENOrdering Facility: [facility] Address:[address] [place], [place] [address]Performed By: #### CFAPRO ####[facility] LABORATORIESCLIA [id number] [place] [address] C-X-PBLYDFDKT C20:3W693 nmol/cBYsxcwv34-455JnsttiwdkPremier [facility] on above:Order Comment: Specimen Type: BLOOD SPECIMENOrdering Facility: [facility] Address:[address] [place], [place] [address]Performed By: #### CFAPRO ####[facility] ANGELUP LABORATORIESCLIA [id number] [place], [place] [id number] ACID, C16 1W926 nmol/lXPkzxer66-87WaqczleunTrihealth Bethesda [facility] Hospital Comment on above:Order Comment: Specimen Type: BLOOD SPECIMENOrdering Facility: [facility] Address:[address] [place] [address] Performed By: #### CFAPRO ####[facility]EL[facility] LABORATORIESCLIA [id number] [place], [place] [address]JKPMNJLJUAXRHE, FATTY ACID PROFILENormalNormal [facility] on above:Order Comment: Specimen Type: BLOOD SPECIMENOrdering Facility: [facility] Address:[address] [place], [place] [address]Result Comment: Normal fatty acid profile.Results reviewed and interpreted by Rosemarie Painter MD, PhD, FACINTERPRETIVE INFORMATION: Fatty Acids Profile, Essential Ser/PlasThis test does not screen for disorders of peroxisomalbiogenesis/function.This test was developed and its performance characteristicsdetermined by [employer]. It has not been cleared orapproved by the US Food and Drug Administration. This test wasperformed in a CLIA certified laboratory and is intended forclinical purposes.Performed By: #### CFAPRO ####[facility] LABORATORIESCLIA [id number] [place], [place] [address]FQOCHV ACID, C12 022 nmol/mLNormal1-200[facility] on above:Order Comment: Specimen Type: BLOOD SPECIMENOrdering Facility: [facility] Address:[address] [place] [address] Performed By: #### CFAPRO ####[facility] LABORATORIESCLIA [id number] [place], [place] [address]JZSJXIZL ACID, C18 9K33249 nmol/tGMekevh6329-6562 [facility] on above:Order Comment: Specimen Type: BLOOD SPECIMENOrdering Facility: [facility] Address:[address] [place], [place] [address]Performed By: #### CFAPRO ####[facility] LABORATORIESCLIA [id number] [place], [place] [address]YIWR ACID, C20 3W96 nmol/mL Normal1-35[facility] on above:Order Comment: Specimen Type: BLOOD SPECIMENOrdering Facility: [facility] Address:[address] [place], [place] [address]Performed By: #### CFAPRO ####[facility] LABORATORIESCLIA [id number] [place], [place] [address]EAGHSZYY ACID, C14 069 nmol/rCHwxnrp07-904CfqgmfplqPrem[facility] on above:Order Comment: Specimen Type: BLOOD SPECIMENOrdering Facility: [facility] Address:[address] [place], [place] [address]Performed By: #### CFAPRO ####[facility] LABORATORIESCLIA [id number] [place] [address] NERVONIC ACID, C24 2R2029 nmol/qHVdoxlm28-558DdwnpflciPremier [facility] on above:Order Comment: Specimen Type: BLOOD SPECIMENOrdering Facility: [facility] Address:[address] [place] [address] Performed By: #### CFAPRO ####[facility] LABORATORIESCLIA [id number] [place], [place] [address]TUYGZ ACID, C18 6O07035 nmol/lULxbnqf888-7776 [facility] on above:Order Comment: Specimen Type: BLOOD SPECIMENOrdering Facility: [facility] Address:[address] [place], [place] [address]Performed By: #### CFAPRO ####[facility] LABORATORIESCLIA [id number] [place], [place] [address]EWHXQYMD ACID, C16 [address] nmol/dOTzrllh9963-6102NeuvokmjsPremier [facility] on above:Order Comment: Specimen Type: BLOOD SPECIMENOrdering Facility: [facility] Address:[address] [place], [place] [address]Performed By: #### CFAPRO ####[facility] LABORATORIESCLIA [id number] [place], [place] [address]FTUXXCFWENR ACID, C16 0D3267 nmol/nGXcwvsr00-998NoylcdhecPremier [facility] on above: Order Comment: Specimen Type: BLOOD SPECIMENOrdering Facility: [facility] Address:[address] [place], [place] [address]Performed By: #### CFAPRO ####[facility] LABORATORIESCLIA [id number] [place] [address] STEARIC ACID, C18 0606 nmol/dWWiheof716-6173OcuonglbvPremier [facility] on above:Order Comment: Specimen Type: BLOOD SPECIMENOrdering Facility: [facility] Address:[address] [place], [place] [address]Performed By: #### CFAPRO ####[facility] LABORATORIESCLIA [id number] [place], [place] [address]YKCNI FATTY ACIDS7.7 mmol/LNormal4.5-15.0[facility] on above:Order Comment: Specimen Type: BLOOD SPECIMENOrdering Facility: [facility] Address:[address] [place] [address] Performed By: #### CFAPRO ####[facility] LABORATORIESCLIA [id number] [place], [place] [address]TAJDM MONOUNSATURATED ACIDS1.9 mmol/LNormal0.9-4.7 [facility] on above:Order Comment: Specimen Type: BLOOD SPECIMENOrdering Facility: [facility] Address:[address] [place], [place] [address]Performed By: #### CFAPRO ####[facility] LABORATORIESCLIA [id number] [place], [place] [address]YQPHM POLYUNSATURATED ACIDS3.1 mmol/LNormal2.1-6.2CTriHealth Bethesda [facility] Hospital on above:Order Comment: Specimen Type: BLOOD SPECIMENOrdering Facility: [facility] Address:[address] [place], [place] [address]Performed By: #### CFAPRO ####[facility] LABORATORIESCLIA [id number] [place], [place] [address]ROMFU SATURATED ACIDS2.7 mmol/LNormal1.5-5.3CTriHealth Bethesda North Hospital on above:Order Comment: Specimen Type: BLOOD SPECIMENOrdering Facility: [facility] Address:[address] [place], [place] [address]Performed By: #### CFAPRO ####[facility] LABORATORIESCLIA [id number] [place], [place] [address]UCGCX W30.19 mmol/LNormal0.12-0.55[facility] on above:Order Comment: Specimen Type: BLOOD SPECIMENOrdering Facility: [facility] Address:[address] [place], [place] [address]Performed By: #### CFAPRO ####[facility]ORATORIESCLIA [id number] [place], [place] [address]BSHAW W62.9 mmol/LNormal1.8-5.7CTriHealth Bethesda [facility] on above: Order Comment: Specimen Type: BLOOD SPECIMENOrdering Facility: [facility] Address:[address] [place], [place] [address]Performed By: #### CFAPRO ####[facility] LABORATORIESCLIA [id number] [place] [address] TRIENE/TETRAENE RATIO0.155Vhtxgl5.004-0.051CTriHealth [facility] on above:Order Comment: Specimen Type: BLOOD SPECIMENOrdering Facility: [facility] Address:[address] [place], [place] [address]Performed By: #### CFAPRO ####[facility]EL[facility] LABORATORIESCLIA [id number] [place], [place] [address]USSQOKFL ACID, C18 2J7122 nmol/tAXpowko74-337KnhvihfwuTrihealth [facility]hesda [facility] Hospital Comment on above:Order Comment: Specimen Type: BLOOD SPECIMENOrdering Facility: [facility] Address:[address] [place] [address] Performed By: #### CFAPRO ####[facility] LABORATORIESCLIA [id number] [place], [place] [address]XGPT CYTOMETRY FOR LEUKEMIA/LYMPHOMA (FCLL) PERFORMABLEon 80-22-6757FCRH CYTOMETRY ORDER STATUSResults will be reported under F case ID when completedNoHarrison Community Hospital on above: Order Comment: Specimen Type: FLUID SPECIMENOrdering Facility: [facility] Address:[address] [place], [place] [address]Result Comment: Corrected result: Previously reported as A bone marrow sample was received for potential flow cytometry studies. Following morphologic review, flow cytometric studies will be ordered by the hematopathologist if testing is indicated. on 05/20/2024 at1:05 PM EST.Performed By: #### FCLLP ####[facility] LABCLIA [id number] [facility] [id number] [place], [place] [address] [place] FLOW CYTOMETRY FOR LEUKEMIA/LYMPHOMA (FCLL) REFLEXon 77-62-0875FBXROSFOU COMMENT NormalPrem[facility] on above:Order Comment: Specimen Type: FLUID SPECIMENOrdering Facility: [facility] Address:[address] [place], [place] [address]Result Comment: This assay is not designed to detect minimal residual disease, plasma cell neoplasms, or myeloid antigen maturational patterns.This test was developed and its performance characteristics determined by [facility]'s [facility] [place] ([facility]). It has not been cleared or approved by the FDA. [facility] is regulated under CLIA as qualified to perform high-complexity testing. This test is used for clinical purposes. It should not be regarded as investigational or for research.Performed By: #### FCLLRFLX ####[facility] LABCLIA [id number] [address] STATES OF [facility] HOSPITALFINAL PERFORMING LABNormAvita Health System on above: Order Comment: Specimen Type: FLUID SPECIMENOrdering Facility: [facility] Address:[address] [place], [place] [address]Result Comment: Diagnostic interpretation performed at [facility], [address] [place], [place] [address] CLIA# [id number] Director: Ramos Strickland M.D. Performed By: #### FCLLRFLX ####[facility] LABCLIA [id number] [place] [address] [place] FLOW CYTOMETRY RESULTSNoHarrison Community Hospital on above:Order Comment: Specimen Type: FLUID SPECIMENOrdering Facility: [facility] Address:[address] [place], [place] [address]Result Comment: Specimen type: Pleural fluidTotal nucleated cell count: 320,000 totalRed blood cellcount: N/ADifferential (serous fluid): See body fluid manual differentialMorphology comments: UnremarkableViability: 91%Flow Cytometry Body Fluid ImmunophenotypingMarker Normal Cell Type Result (Lymphocytes)CD3 T-cells Normal PatternCD4 T-cell subset Normal PatternCD5 T-cells Normal PatternCD7 T/NK-cells Normal PatternCD8 T-cell subset Normal UulogwiRK09 Myeloid Normal FrbpeawSC48/56 NK cells Normal MowzxtbSB82 B-cells Normal MzzuuwzWH69 Blasts Normal IqczttzQQ10 Ramos-leukocyte Normal Patternkappa/lambda B-cells PolytypicFlow cytometric analysis of the fluid reveals that 40% of total events have the CD45 and light scatter properties of lymphocytes. The lymphocytes are composed of T- cells (54%, CD4:CD8 ratio = 22.32), NK cells (37%), and polytypic B-cells (9%). Granulocytic elements are 1% of events. Blasts are not detected.Performed By: #### FCLLRFLX ####[facility] LABCLIA [id number] [place] [address] [place] AMERICAGROSS DESCRIPTION NormalPremier Health [facility] on above:Order Comment: Specimen Type: FLUID SPECIMENOrdering Facility: [facility] Address:[address] [place], [place] [address]Result Comment: A. Pleural Cavity, RightRECEIVED 4 ML OF PLEURAL FLUID Entirely submitted for Flow Cytometry.Performed By: #### FCLLRFLX ####[facility]ST CAMPUSIA [id number] [address] STATES OF AMERICAINTERPRETATIONNormal [facility] on above:Order Comment: Specimen Type: FLUID SPECIMENOrdering Facility: [facility] Address:[address] [place], [place] [address]Result Comment: There is no evidence of involvement by a lymphoproliferative disorder or abnormal blast population. Correlation with the clinical findings is suggested.SO/SHELBY 05/20/24 Performed By: #### FCLLRFLX ####[facility] LABIA [id number] [place] [address] [place] AMERICAGlucose Fld-mCncon 56-38-8353Itqgojc (Body fld) [Mass/Vol]106 mg/dLNormalSee CommentPremier Health [facility] on above: Order Comment: Specimen Type: FLUID SPECIMENOrdering Facility: [facility] Address:[address] [place], [place] [address]Result Comment: Synovial fluid: Synovial fluid glucose measurement may be [...] document C49A. RAJEEV Bui: Clinical Laboratory Standards [place]: 2007.Performed By: #### 2344-0, 2529-6, 2881-1, 39899-2, 20625-4, 1747-5 ####[facility] LABCLIA [id number] [place] [address] [place] LDH Fld-[facility] 28-51-1288HBW (Body fld) [Catalytic activity/Vol]86 U/LNormalSee CommentTrihealth Bethesda Butler HospitalComment on above:Order Comment: Specimen Type: FLUID SPECIMENOrdering Facility: [facility] Address:[address] [place], [place] [address]Result Comment: Pleural fluids: Pleural fluid lactate dehydrogenase [...] document C49A. RAJEEV Bui: Clinical Laboratory Standards [place]: 2007.Reference: 2. Fei [address] DR. Body fluid analysis: clinical utility and applicability of published studies to guide interpretation of today's laboratory testing in serous fluids. Crit Rev Clin Lab Sci, 2013:50(4,5):107 to 124.Reference: 3. Pejovic M, [place] Randolph DR. Lactate dehydrogenase activity and its isoenzymes in serum and synovial fluid of patients with rheumatoid arthritis and osteoarthritis. J Rheumatol. 1992:19:529 to 533.Performed By: #### 2344-0, 2529-6, 2881-1, 83032-7, 99636-5, 1747-5 ####[facility] LABCLIA [id number] [place] [address] [place] AMERICALD SerPl-cCncon 07-17-5175TWK [Catalytic activity/Vol]209 U/BFrxgvp486-661RllaqyxtzPrem[facility] on above:Order Comment: Specimen Type: BLOOD SPECIMENOrdering Facility: [facility] Address:[address] [place], [place] [address]Result Comment: Hemolysis present. The origin of the hemolysis, in vitro versus an in vivo hemolytic process, cannot be distinguished via this assay alone. In vitro hemolysis may lead to non-physiological (spurious) elevation in lactate dehydrogenase (LDH) results. Theresult should be interpreted in context of the clinical setting and other test results. Suggest reorder as clinically indicated.Performed By: #### 2532-0, 55699-9 ####[facility] LABIA [id number] [place] [address] [place] AMERICAMANUAL DIFFERENTIAL, BODY FLUIDon 85-19-4044WYU TTL, BODY WLWFW650 cells countedNormalCTriHealth Bethesda North Hospital on above:Order Comment: Specimen Type: FLUID SPECIMENOrdering Facility: [facility] Address:[address] [place], [place] [address]Performed By: #### CCBF, [id number], [id number] ####[facility] LABCLIA [id number] [place] [address] [place] AMERICAEOSIN%, BF2 %NormalPremier Health [facility] on above:Order Comment: Specimen Type: FLUID SPECIMENOrdering Facility: [facility] Address:[address] [place], [place] [address]Performed By: #### CCBF, [id number], [id number] ####[facility] LABCLIA [id number] [place] [address] [place] AMERICALYMPH%, BF80 %Wvev06-15YqiatbfxlTrihealth Bethesda Butler Hospital Comment on above:Order Comment: Specimen Type: FLUID SPECIMENOrdering Facility: [facility] Address:[address] [place], [place] [address]Result Comment: Corrected result: Previously reported as 75 % on 05/19/2024 at 6:29 AM EST.Performed By: #### CCDIONICIO, [id number], [id number] ####[facility] LABCLIA [id number] [place] [address] [place] AMERICAMACRO%, BF4 %Rrj77-06WezhazfjhTrihealth Bethesda Butler HospitalComment on above:Order Comment: Specimen Type: FLUID SPECIMENOrdering Facility: [facility] Address:[address] [place], [place] [address]Performed By: #### CCDIONICIO, [id number], [id number] ####[facility] LABCLIA [id number] [place] [address] [place] AMERICANEUT%, BF14 %High0-1 [facility]hes[facility] Butler HospitalComment on above:Order Comment: Specimen Type: FLUID SPECIMENOrdering Facility: [facility] Address:[address] [place], [place] [address]Performed By: #### CCDIONICIO, [id number], [id number] ####[facility] LABCLIA [id number] [address] [address] [place] AMERICAREAC LYMPH %, BFNormalCUniversity Hospitals Parma Medical Center Comment on above:Order Comment: Specimen Type: FLUID SPECIMENOrdering Facility: [facility] Address:[address] [place], [place] [address]Result Comment: Corrected result: Previously reported as 5 % on 05/19/2024 at 6:29 AM EST.Performed By: #### CCBF, [id number], [id number] ####[facility] LABCLIA [id number] [place] [address] [place] AMERICAMicroorganism Spec Culton 43-35-1813Siyyyuvbjkhyi identified Cx Nom (Unsp spec)CULTURE, AFB: No Acid Fast Bacilli isolated after 42 days AFB STAIN: No acid fast bacilli seen by fluorochrome stainNormalCUniversity Hospitals Parma Medical Center Comment on above:Performed By: #### 611-4, 72795-0 ####[facility] CAMPUSIA [id number] [place] [address] [place] OF AMERICAPH PLEURAL FLUID (FOR USE OUTSIDE OF [facility])on 14-02-5329iF (Body fld)7.9 [pH]NormalTrihealth Bethesda Butler HospitalComment on above:Order Comment: Specimen Type: FLUID SPECIMENOrdering Facility: [facility] Address:[address] [place], [place] [address]Result Comment: No reference range has been established for this specimen type.This test was developed, and its performance characteristics determined by the [facility] Department of Pathology and Laboratory Medicine. It has not been cleared or approved by the FDA. The [facility] Department of Pathology and Laboratory Medicine is regulated under CLIA as qualified to perform high-comple xity testing. This test is used for clinical purposes. It should not be regarded as investigationalor for research.Performed By: #### [id number] ####[facility] LABIA [id number] [place] [address] [place] OF AMERICAProt Fld-mCncon 41-97-8302Ckrwhnt (Body fld) [Mass/Vol]2.2 g/dLNormalSee CommentPremier Health [facility] on above: Order Comment: Specimen Type: FLUID SPECIMENOrdering Facility: [facility] Address:[address] [place], [place] [address]Result Comment: Serous fluids: Effusions are the accumulation of clinically detected fluid in any of the serous cavities. Effusions are further into transudates and exudates, which aid in determining the etiology of the effusion.Transudate: Body fluid total protein measurement < 3.0 g/dL. A ratio of serous fluid total protein to a concurrent serum total protein < 0.5 indicates a tr ansudate.Exudate: Body fluid total protein measurement >= 3.0 g/dL. A ratio of serous fluid total protein to a concurrent serum total protein >= 0.5 indicates an exudate.Reference: 1. CLSI. Analysis of Body Fluids in Clinical Chemistry Approved Guideline. CLSI document C49A. RAJEEV Bui: Clinical Laboratory Standards [place]: 2006.Performed By: #### 2344-0, 2529-6, 2881-1, 92169-5, 39966-0, 1747-5 ####[facility] LABCLIA [id number] [place] [address] [place] AMERICATrigl Fld-mCncon 05-18-2024 Triglyceride (Body fld) [Mass/Vol]13 mg/dLNoSelect Medical [facility] Comment on above:Order Comment: Specimen Type: FLUID SPECIMENOrdering Facility: [facility] Address:[address] [place], [place] [address]Result Comment: Synovial fluids: Synovial fluid triglycerides measurement may be [...] document C49A. RAJEEV Bui: Clinical Laboratory Standards [place]; 2007.Performed By: #### 2344-0, 2529-6, 2881-1, 73774-3, 61890-1, 1747-5 ####[facility] LABCLIA [id number] [address] [address] [place] OF AMERICAXR CHEST 2V FRONTAL/LATon 55-64-6900JM CHEST 2V FRONTAL/LATNormalCUniversity Hospitals Parma [facility] Center XR Chest PA and Lateralon 02-76-8050CMCKUMWYMM: Slight decrease in the right pleural effusion.. Rebar Fabricator: ALONSO Transcribe Date/Time: May 18 2024 1:40P Dictated by : REBECCA LOVELACE MD This examination was interpreted and the report reviewed and electronically signed by: REBECCA LOVELACE MD on May 18 2024 1:46PM [facility] DIVISION OF RADIOLOGY* * *Final Report* * * DATE OF [...] noted in the thoracic spine. DIVISION OF RADIOLOGYProvider, [facility] - [facility]24 * * *Final [...] Slight decrease in the right pleural effusion.. Rebar Fabricator: PSCB Transcribe Date/Time: May 18 2024 1:40P Dictated by : REBECCA LOVELACE MD This examination was interpreted and the report reviewed and electronically signed by: REBCECA LOVELACE MD on May 18 2024 1:46PM EST [facility] Study observation (narrative)EspinosaFairfield Medical CenterXR Chest PA and LateralOrdered By: Ccf Provider on 67-38-7164Duguusdwy ClinicANES POSTPROC EVALon 73-17-2741WLDC POSTPROC EVALHNO ID: [id number] Author: STEVEN DONNELLY MD Service: Anesthesiology Author Type: Anesthesiologist Type: Anesthesia Postprocedure Evaluation Filed: 04/28/2024 16:14 Note Text: POST ANESTHESIA EVALUATION NOTE : 1950 Procedure Summary Date: 04/28/24 Room / Location: [facility] Endoscopy - ENDO Anesthesia Start: 1129 Anesthesia Stop: 1210 Procedures: EGD DIAGNOSTIC COLONOSCOPY DIAGNOSTIC Diagnosis: Diarrhea, unspecified type Scheduled Providers: Vic Ponce MD; Steven Donnelly I, MD; Julian Batista APRN.PIPE CHIPPER Responsible Provider: Steven Donnelly I, MD Anesthesia [...] April 28, 2024 TIME: 4:14 PM CSN: [id number] HospitalANES PRE-OPon 42-72-1971UGMI PRE-OPHNO ID: [id number] Author: STEVEN DONNELLY MD Service: Anesthesiology Author Type: Anesthesiologist Type: Anesthesia Preprocedure Evaluation Filed: 04/28/2024 11:18 Note Text: ANESTHESIOLOGY DAY OF SURGERY NOTE : 1950 Procedure Information Date/Time: 04/28/24 1230 Scheduled providers: Vic Ponce MD; Steven Donnelly I, MD; Julian Batista APRN.PIPE CHIPPER Procedures: EGD DIAGNOSTIC COLONOSCOPY DIAGNOSTIC Location: [facility] Endoscopy - ENDO Estimated body [...] Medications as of 04/28/2024 Medication Sig - TRNHCIW-BHMTZTRKX-AZMH ORAL Take by mouth. - iv contrast [...] April 28, 2024 TIME: 11:17 AM CSN: [id number] [facility] PRE-OPNormalTrihealth Bethesda Butler HospitalColonoscopyon 61-71-9437TgjblwfzmqdTlakpdob Hosptial Gastrointestinal Endoscopy Patient Name: Sav Raymundo Procedure Date: 04/28/2024 11:16 AM Date of : 1950 Admit Type: Outpatient Age: 74 Room: [place] [address] Gender: Male Note Status: Finalized Attending MD: Vic Ponce MD, [id number] Procedure: Colonoscopy Indications: Chronic diarrhea Comorbidities Patient with chronic right pleural effusion unknown etiology/origin with N,V, diarrhea and weight loss. Providers: Vic Ponce MD, Riley Almonte, RN, Abbie Ivey, RN, Adri Bradley RN (Assisting Nurse) Patient Profile: [...] physician, the nurse, the anesthesiologist and the systems software designer in the procedure room at 11:29 AM. [...] prior dose. Procedure Code(s): --- Professional --- 97636, Colonoscopy, flexible; with biopsy, single or multiple Diagnosis Code(s): --- Professional --- K52.9, Noninfective gastroenteritis and colitis, unspecified CPT copyright 2020 [employer]. All rights reserved. The codes documented in this report are preliminary and upon public policy mediator review may be revised to meet current compliance requirements. Attending Participation: I personally performed the entire procedure. Scope In: 11:48:20 AM Scope Out: 11:55:18 AM (more content not included)...[facility] Colonoscopy studyon [id number] Hosptial Gastrointestinal Endoscopy Patient Name: Sav Raymundo Procedure Date: 04/28/2024 11:16 AM Date of : 1950 Admit Type: Outpatient Age: 74 Room: [place] [address] Gender: Male Note Status: Finalized Attending MD: Vic Ponce MD, [id number] Procedure: Colonoscopy Indications: Chronic diarrhea Comorbidities Patient with chronic right pleural effusion unknown etiology/origin with N,V, diarrhea and weight loss. Providers: Vic Ponce MD, Riley Almonte, RN, Abbie Ivey, RN, Adri Bradley, EVAN (Assisting [...] physician, the nurse, the anesthesiologist and the systems software designer in the procedure room at 11:29 AM. [...] inflammation, mass, polyps, s (more content not included)...PROVATIONAdena Pike Medical CenterRadiology Study observation (narrative)[facility] Study observation Narrativeon 31-25-4713Thriezmo Hosptial Gastrointestinal Endoscopy Patient Name: Sav Raymundo Procedure Date: 04/28/2024 11:17 AM Date of : 1950 Admit Type: Outpatient Age: 74 Room: [place] [address] Gender: Male Note Status: Finalized Attending MD: Vic Ponce MD, [id number] Procedure: Upper GI endoscopy Indications: Dysphagia, Heartburn, [...] physician, the nurse, the anesthesiologist and the systems software designer in the procedure room at 11:29 AM. [...] from the incisors. T (more content not included)...PROVATIONAdena Pike Medical CenterRadiology Study observation (narrative)[facility] PHYSICALon [id number] PHYSICALHNO ID: [id number] Author: VIC PONCE MD Service: Gastroenterology Author [...] Plan: MAC Additional Comments: None Vic [facility]once [facility] PROGon 45-02-1346IRMXRAW PROG HNO ID: [id number] Author: JAHAIRA HOOD, EVAN Service: Nursing Author Type: Registered Nurse [...] REFERRAL (RECOMMENDATION): None Electronically Signed By: Jahaira CristobalThe [facility] HNO ID: [id number] Author: MAUREEN LAUGHLIN RN Service: ? Author [...] REFERRAL (RECOMMENDATION): None Electronically Signed By: Maureen LaughlinLahey Hospital & Medical Center NormalSt. Elizabeth HospitalAL PATHOLOGYon [id number] REPORTNoal [facility] CenterComment on above:Order Comment: Specimen Type: TISSUE SPECIMEN Ordering Facility: [facility] Address: [address] [place] [address] [id number] Comment: Surgical Pathology Report Case: [id number] Authorizing Provider: Vic Ponce MD Collected: 04/28/2024 11:37 AM Ordering [facility] Received: 04/28/2024 01:31 PM Endoscopy - ENDO Pathologist: Simba Frias MD, PhD Specimens: A) - Small Bowel, Duodenum, Biopsy B) - Stomach, Biopsy C) - Stomach, Polyp, Biopsy D) - Esophagus, Biopsy E) - Small Bowel, Ileum, Biopsy F) - Colon, Biopsy, random colonPerformed By: #### S #### [facility] CLIA [id number] [address] [place] [address] OF AMERICADIAGNOSIS COMMENTComment F: This pattern of colitis is non-specific and can be associated with a number of etiologies. Although most cases remain idiopathic, the differential includes medication-related enteropathy (caused by such agents as NSAIDs, PPIs, histamine receptor antagonists, SSRIs or angiotensin receptorblockers, cephalosporins, carbamazepine, gold salts, ipilimumab etc.), resolving infections [both ba cterial (such as C. Jejuni, E. Coli) and viral], and as a colonic manifestation of gluten-sensitiveenteropathy among others. Correlation with the clinical, laboratory and colonoscopic findings should be of value in this differential. NormalHolyoke Medical CenterComment on above:Order Comment: Specimen Type: TISSUE SPECIMEN Ordering Facility: [facility] Address: [address] [place], [place] [address]Performed By: #### S #### [facility] [place] [id number] [address] [place] [address] STATES OF AMERICAFINAL DIAGNOSISNormal [facility] CenterComment on above:Order Comment: Specimen Type: TISSUE SPECIMEN Ordering Facility: [facility] Address: [address] [place], [place] [address]Result Comment: A. Duodenum, biopsy: -Duodenal mucosa with preserved [...] see comment. Performed By: #### S #### [facility] CLIA [id number] [address] [place], [place] [address]K [address]ETFINIL PERFORMING LABNormal [facility] Medical CenterComascension borgess allegan hospital on above:Order Comment: Specimen Type: TISSUE SPECIMEN Ordering Facility: [facility] Address: [address] [place], [place] [address]Result Comment: Diagnostic interpretation performed at [facility], [address] [place], [place] [id number] CLIA# [id number] Sidehand: Ramos Strickland M.D.Performed By: #### S #### [facility] CLIA [id number] [address] [place], [place] [address]GROSS DESCRIPTIONNormal [facility] Medical CenterComascension borgess allegan hospital on above:Order Comment: Specimen Type: TISSUE SPECIMEN Ordering Facility: [facility] Address: [address] [place], [place] [address]Result Comment: A. Small Bowel, Duodenum, Biopsy Received in formalin are [...] 2024 5:43 PM Gross examination performed at [facility], [address] [place], [place] [address]Performed By: #### S #### [facility] CLIA [id number] [address] [place] [address] OF [facility] HOSPITALUpformerly [facility] GI endoscopy [id number] GI endoscopyFederal [facility] Gastrointestinal [facility] Patient Name: Sav Raymundo Procedure Date: 04/28/2024 11:17 AM Date of : 1950 Admit Type: Outpatient Age: 74 Room: [place] [address] Gender: Male Note Status: Finalized Attending MD: Vic Ponce MD, [id number] Procedure: Upper GI endoscopy Indications: Dysphagia, Heartburn, Nausea with vomiting Providers: Vic Ponce MD, Riley Almonte, RN, Abbie Ivey, RN, Adri Bradley RN (Assisting Nurse) Patient Profile: [...] physician, the nurse, the anesthesiologist and the systems software designer in the procedure room at 11:29 AM. [...] home (ambulatory). Procedure Co (more content not included)...NormalHolyoke Medical CenterNo Panel Informationon 00-07-1132Vauosgjhn ClinicCT ENTEROGRAPHY W IVCONon 44-82-9973SH ENTEROGRAPHY W IVCONNormalSouthern [facility] Small bowel W contrast PO and W contrast Scarlett 83-49-9335ZGDPRMGJJZ: No active bowel inflammation. Small volume ascites and small right pleural effusion, both increased since 12/20/2023. Rebar Fabricator: [facility] Transcribe Date/Time: Apr 22 2024 12:06P Dictated by : MILDRED GRANDA MD This examination was interpreted and the report reviewed and electronically signed by: MILDRED GRANDA MD on Apr 22 2024 12:24PM [facility] DIVISION OF RADIOLOGY* * *Final Report* * * DATE OF EXAM: Apr 22 2024 11:45AM [facility] 0545 - CT ENTEROGRAPHY W [...] right pleural catheter in place. DIVISION OF RADIOLOGYProvider, [facility] [place] - 04/22/2024 * * *Final Report* * * DATE OF EXAM: Apr 22 2024 11:45AM [facility] 0545 - CT ENTEROGRAPHY W [...] right pleural effusion, both increased since 12/20/2023. Rebar Fabricator: ALONSO Transcribe Date/Time: Apr 22 2024 12:06P Dictated by : MILDRED GRANDA MD This examination was interpreted and the report reviewed and electronically signed by: MILDRED GRANDA MD on Apr 22 2024 12:24PM [facility] SystemRadiology Study observation (narrative)[facility] Small bowel W contrast PO and W contrast IVOrdered By: Ccf Provider on 04-22-2024 [facility] Medical CenterCalprotectin (Stl) [Mass/Mass]on 89-07-5496LONMKZQIOQMH, FECAL EMBJCCXOHTBY72.0 ug/gHighNINF - 50 ug/gCleveland ClinicInterpretation and review of laboratory resultsAbnormalCleveland Georgetown Behavioral HospitalG. lamblia+Cryptosporidium sp Ag IA Ql (Stl)Ordered By: Bobby Mccallum on 90-94-4818Uzbqwrkfgvnucxx sp Ag Ql (Stl)NegativeNegativeAdena Pike Medical CenterG. lamblia Ag Ql (Stl)NegativeNegativeAdena Pike Medical CenterInterpretation and review of laboratory resultsNormHolzer Medical Center – Jackson single negative test result does not rule out a parasitic infection. Due to intermittent sheddingof parasites, it is recommended that three specimens collected over a 7 day period are submitted to improve detection sensitivity. [facility] Memorial Hospitalstrointestinal pathogens identified BRYN+probe Nom (Stl)Ordered By: Steven Olsen on 71-93-6901Ckvjamrpkvwzr sp DNA BRYN+probe Nom (Unsp spec)Not detectedNot DetectedChappell Hill ClinicInterpretation and review of laboratory resultsNormalCMedina Hospitalalmonella sp DNA BRYN+probe Ql (Unsp spec)Not detectedNot DetectedMcCullough-Hyde Memorial Hospitalhiga toxin stx gene BRYN+probe Nom (Unsp spec)Not detectedNot DetectedMcCullough-Hyde Memorial Hospitalhigella sp DNA BRYN+probe Ql (Unsp spec)Not detectedNot DetectedGreene Memorial HospitalLaboratory - Microbiology and Antimicrobial susceptibilityon 04-21-2024M. tuberculosis tuberculin stim IFN-g Ql (Bld)NegativeAdena Pike Medical CenterNo Panel Informationon 14-03-5241BTINGDTQ INTERPRETATIONNormalNormalCMartin Memorial Hospital ELASTASE-1 LMNJJUZQZPFBN051 ug/g200 - PINF ug/gClevKettering Health Washington Township on above: Interpretation: <100 ug/g: Severe Exocrine Pancreatic Insufficiency 100-199 ug/g: Mild to Moderate Exocrine Pancreatic Insufficiency >=200 ug/g: Normal Interpretation and review of laboratory resultsNormalCSt. Elizabeth HospitalMitogen minus Nil1.19- PINFCleveland ClinicTB Gamma Interpretation Infection with M. tuberculosis complex is unlikely. If latent tuberculosis infection is highly suspected, a negative result does not rule out the infection. Specimens from immunocompromised patients and those <5 years of age may show false negative results. In case of a contact investigation, please repeat 8-12 weeks after a known exposure.A[facility] Medical CenterTB NilNINFChappell Hill ClinicTB1 Ag minus NilNINFAdena Pike Medical CenterTB2 Ag minus Nil0.00NINFGreene Memorial Hospital25([place])D3 SerPl-mCncon [id number]-wtfxnthvkruwjb D3 [Mass/Vol]36.6 ng/jDHshhdb82.0-80.0[facility] on above: Order Comment: Specimen Type: BLOOD SPECIMENOrdering Facility: [facility] Address:[address] [place], [place] [address]Result Comment: Classification of 25 [place] Vitamin D status:Deficiency/Insufficiency: < or = 30 ng/ml.Sufficiency/Optimal Levels: 31-80 ng/mLToxicity: > 100 ng/mL.Test performed by chemiluminescent immunoassay.Performed By: #### 1989-3 ####[facility] LABCLIA [id number] [place] [address] [place] MQZFJJI45-ncyqxznkvqfjbh D3 [Mass/Vol]on 15-25-8939Afmfwznnbjcvrw and review of laboratory resultsNoHighland District Hospital The reference range interval was based on an analysis of samples from healthy adults and may not pertain to children from 0-18 years old. Greene Memorial HospitalBLOOD TB SCREENon 04-20-2024M. tuberculosis tuberculin stim IFN-g Ql (Bld)NegativeNormalCTriHealth Bethesda North Hospital on above:Order Comment: Specimen Type: BLOOD SPECIMENOrdering Facility: [facility] Address:[address] [place], [place] [address]Performed By: #### INFTBP ####[facility] LABCLIA [id number] [place] [address] [place] OF AMERICAMITOGEN MINUS NIL1.19 IU/mLNormal>=0.50[facility] on above:Order Comment: Specimen Type: BLOOD SPECIMENOrdering Facility: [facility] Address:[address] [place], [place] [address]Performed By: #### INFTBP ####[facility] LABCLIA [id number] [place] [address] [place] OF AMERICATB GAMMA INTERPRETATIONNormal [facility] on above:Order Comment: Specimen Type: BLOOD SPECIMENOrdering Facility: [facility] Address:[address] [place], [place] [address]Performed By: #### INFTBP ####[facility] LABCLIA [id number] [place] [address] [place] OF AMERICATB NIL<0.00Normal<=8.00[facility] on above:Order Comment: Specimen Type: BLOOD SPECIMENOrdering Facility: [facility] Address:[address] [place], [place] [address]Performed By: #### INFTBP ####[facility] LABCLIA [id number] [place] [address] [place] OF AMERICATB1 AG MINUS NIL<0.00Normal<0.35 [facility] on above:Order Comment: Specimen Type: BLOOD SPECIMENOrdering Facility: [facility] Address:[address] [place], [place] [address]Performed By: #### INFTBP ####[facility] LABCLIA [id number] [place] [address] [place] OF AMERICATB2 AG MINUS NIL0.00 IU/mLNormal<0.35[facility] on above:Order Comment: Specimen Type: BLOOD SPECIMENOrdering Facility: [facility] Address:[address] [place], [place] [address]Performed By: #### INFTBP ####[facility] LABCLIA [id number] [place] [address] [place] OF AMERICAC diff Tox gens Stl Ql BRYN+probeon 04-20-2024. difficile toxin genes BRYN+probe Ql (Stl)NegativeNormal Negative for C. difficile toxin by PCRPremier Health Miami Valley Hospital on above:Order Comment: Specimen Type: STOOL SPECIMENOrdering Facility: [facility] Address:[address] [place], [place] [address]Performed By: #### 52818-9, 12452-4, PANCEF ####[facility] LABCLIA [id number] [facility] [id number] [place] [address] [place] C. difficile toxin genes BRYN+probe Ql (Stl)on 27-12-6593Aoalbwllybnjbv and review of laboratory resultsNormalCohio state university wexner medical centerand [facility] W Auto Differential panel (Bld)on 45-28-1804Zjgqanoaw (Bld) [#/Vol]0.04 10*3/uLNINF [facility] CenterBasophils/100 WBC (Bld)0.5 %[facility] Medical CenterDifferential cell count method Nom (Bld)AutoCleveland ClinicEosinophils (Bld) [#/Vol]NINFCleveland ClinicEosinophils/100 WBC (Bld)0.0 %[facility] Medical CenterErythrocyte distribution width (RBC) [Ratio]14.7 %11.5 - 15.0 %[facility] Medical CenterHematocrit (Bld) [Volume fraction]38.0 %Low39.0 - 51.0 %[facility] Medical CenterHemoglobin (Bld) [Mass/Vol]12.0 g/dLLow13.0 - 17.0 g/dLAdena Pike Medical CenterImmature granulocytes (Bld) [#/Vol]0.03 10*3/uLNINFAdena Pike Medical CenterImmature granulocytes/100 WBC (Bld)0.4 %[facility] CenterInterpretation and review of laboratory resultsAbnormalCMartin Memorial Hospital Lymphocytes (Bld) [#/Vol]0.95 10*3/uLLowAdena Pike Medical CenterLymphocytes/100 WBC (Bld)11.9 %Ohio Valley HospitalH (RBC) [Entitic mass]30.5 pg26.0 - 34.0 pg [facility] Valley HospitalHC (RBC) [Mass/Vol]31.6 g/dL30.5 - 36.0 g/dLAdena Pike Medical Center MCV (RBC) [Entitic vol]96.7 fL80.0 - 100.0 fLCMartin Memorial HospitalMonocytes (Bld) [#/Vol]1.03 10*3/uLHighNINFAdena Pike Medical CenterMonocytes/100 WBC (Bld)12.9 % [facility] CenterNeutrophils (Bld) [#/Vol]5.91 10*3/uLAdena Pike Medical Center Neutrophils/100 WBC (Bld)74.3 %[facility] CenterNucleated RBC (Bld) [#/Vol]NINF [facility] CenterNucleated RBC/100 WBC (Bld) [Ratio]0.0 %/100 WBCAdena Pike Medical Center Platelet mean volume (Bld) [Entitic vol]11.1 fL9.0 - 12.7 [facility] Platelets (Bld) [#/Vol]267 10*3/uLAdena Pike Medical CenterRBC (Bld) [#/Vol]3.93 10*6/uL Low4.20 - 6.00 m/[facility] Memorial HospitalWBC (Bld) [#/Vol]7.96 10*3/uLTrihealth Bethesda Butler Hospital ClinicBasophils (Bld) [#/Vol]0.04 10*3/uLNormal<0.11CUniversity Hospitals Parma Medical CenterComment on above:Order Comment: Specimen Type: BLOOD SPECIMENOrdering Facility: [facility] Address:[address] [place], [place] [address]Performed By: #### 22906-0 ####[facility] LABCLIA [id number] [place] [address] [place] Basophils/100 WBC (Bld)0.5 %NormalPremier Health Miami Valley Hospital on above: Order Comment: Specimen Type: BLOOD SPECIMENOrdering Facility: [facility] Address:[address] [place], [place] [address]Performed By: #### 54501- 8 ####[facility] LABCLIA [id number] [place] [address] [place] AMERICADifferential cell count method Nom (Bld)AutoNormalCTriHealth Bethesda North Hospital on above:Order Comment: Specimen Type: BLOOD SPECIMENOrdering Facility: [facility] Address:[address] [place], [place] [address]Performed By: #### 63079-4 ####[facility] LABCLIA [id number] [place] [address] [place] AMERICAEosinophils (Bld) [#/Vol]10*3/uL Normal<0.46[facility] on above:Order Comment: Specimen Type: BLOOD SPECIMENOrdering Facility: [facility] Address:[address] [place], [place] [address]Performed By: #### 62768-6 ####[facility] LABCLIA [id number] [place] [address] [place] AMERICAEosinophils/100 WBC (Bld)0.0 %NormalPremier Health Miami Valley Hospital on above:Order Comment: Specimen Type: BLOOD SPECIMENOrdering Facility: [facility] Address:[address] [place], [place] [address]Performed By: #### 00730-6 ####[facility] LABCLIA [id number] [place] [address] [place] Erythrocyte distribution width (RBC) [Ratio]14.7 %Mjewan20.5-15.0[facility] on above:Order Comment: Specimen Type: BLOOD SPECIMENOrdering Facility: [facility] Address:[address] [place], [place] [address]Performed By: #### 72059-6 ####[facility] LABCLIA [id number] [place] [address] [place] AMERICAHematocrit (Bld) [Volume fraction]38.0 %Low39.0-51.0[facility] on above:Order Comment: Specimen Type: BLOOD SPECIMENOrdering Facility: [facility] Address:[address] [place], [place] [address]Performed By: #### 12682-0 ####[facility] LABIA [id number] [place] [address] [place] Hemoglobin (Bld) [Mass/Vol]12.0 g/dLLow13.0-17.0[facility] Comment on above:Order Comment: Specimen Type: BLOOD SPECIMENOrdering Facility: [facility] Address:[address] [place] [address] Performed By: #### 61912-3 ####[facility] [id number] [place] [address] [place] Immature granulocytes (Bld) [#/Vol]0.03 10*3/uLNormal<0.10[facility] on above:Order Comment: Specimen Type: BLOOD SPECIMENOrdering Facility: [facility] Address:[address] [place], [place] [address]Performed By: #### 39842-1 ####[facility] LABM[facility] [id number] [place] [address] [place] Immature granulocytes/100 WBC (Bld)0.4 %NormalPremier Health Miami Valley Hospital on above:Order Comment: Specimen Type: BLOOD SPECIMENOrdering Facility: [facility] Address:[address] [place] [address] Performed By: #### 60732-7 ####[facility] LABIA [id number] [place] [address] [place] Lymphocytes (Bld) [#/Vol]0.95 10*3/uLLow1.00-4.00[facility] Comment on above:Order Comment: Specimen Type: BLOOD SPECIMENOrdering Facility: [facility] Address:[address] [place] [address] Performed By: #### 30983-7 ####[facility] LABIA [id number] [address] [place] Lymphocytes/100 WBC (Bld)11.9 %NormalPremier Health Miami Valley Hospital on above: Order Comment: Specimen Type: BLOOD SPECIMENOrdering Facility: [facility] Address:[address] [place], [place] [address]Performed By: #### 92185- 8 ####[facility] LABIA [id number] [address] (RBC) [Entitic mass]30.5 pg Zrujij11.0-34.0[facility] Soin Medical Centerment on above:Order Comment: Specimen Type: BLOOD SPECIMENOrdering Facility: [facility] Address:[address] [place], [place] [address]Performed By: #### 70020-8 ####[facility] LABIA [id number] [address] (RBC) [Mass/Vol]31.6 g/dL Firgyj79.5-36.0[facility] – Soin Medical Centerment on above:Order Comment: Specimen Type: BLOOD SPECIMENOrdering Facility: [facility] Address:[address] [place], [place] [address]Performed By: #### 92390-7 ####[facility] LABIA [id number] [address] (RBC) [Entitic vol]96.7 fL Cpcuct78.0-100.0[facility] on above:Order Comment: Specimen Type: BLOOD SPECIMENOrdering Facility: [facility] Address:[address] [place], [place] [address]Performed By: #### 41101-3 ####[facility] LABCLIA [id number] [place] [address] [place] AMERICAMonocytes (Bld) [#/Vol]1.03 10*3/uLHigh<0.87[facility] on above:Order Comment: Specimen Type: BLOOD SPECIMENOrdering Facility: [facility] Address:[address] [place], [place] [address]Performed By: #### 92683-4 ####[facility] LABCLIA [id number] [place] [address] [place] AMERICAMonocytes/100 WBC (Bld)12.9 % NormalPremier Health Miami Valley Hospital on above:Order Comment: Specimen Type: BLOOD SPECIMENOrdering Facility: [facility] Address:[address] [place], [place] [address]Performed By: #### 69462-2 ####[facility] LABIA [id number] [place] [address] [place] AMERICANeutrophils (Bld) [#/Vol]5.91 10*3/uLNormal1.45-7.50[facility] on above:Order Comment: Specimen Type: BLOOD SPECIMENOrdering Facility: [facility] Address:[address] [place], [place] [address]Performed By: #### 45818-6 ####[facility] LABCLIA [id number] [place] [address] [place] AMERICANeutrophils/100 WBC (Bld)74.3 %NormalPremier Health Miami Valley Hospital on above:Order Comment: Specimen Type: BLOOD SPECIMENOrdering Facility: [facility] Address:[address] [place] [address] Performed By: #### 84105-7 ####[facility] LABCLIA [id number] [place] [address] [place] Nucleated RBC (Bld) [#/Vol]10*3/uLNormal<0.01[facility] on above:Order Comment: Specimen Type: BLOOD SPECIMENOrdering Facility: [facility] Address:[address] [place] [address] Performed By: #### 63174-1 ####[facility] LABIA [id number] [place] [address] [place] Nucleated RBC/100 WBC (Bld) [Ratio]0.0 /100 WBCNormalCUniversity Hospitals Par[facility] Comment on above:Order Comment: Specimen Type: BLOOD SPECIMENOrdering Facility: [facility] Address:[address] [place] [address] Performed By: #### 51136-8 ####[facility] LABIA [id number] [place] [address] [place] Platelet mean volume (Bld) [Entitic vol]11.1 fLNormal9.0-12.7CTriHealth [facility] on above:Order Comment: Specimen Type: BLOOD SPECIMENOrdering Facility: [facility] Address:[address] [place], [place] [address]Performed By: #### 73997-4 ####[facility] LABIA [id number] [place] [address] [place] Platelets (Bld) [#/Vol]267 10*3/jMZbxzgi063-481QkvbghmesPremier Health [facility] Hospital on above:Order Comment: Specimen Type: BLOOD SPECIMENOrdering Facility: [facility] Address:[address] [place] [address] Performed By: #### 89499-3 ####[facility] LABIA [id number] [place] [address] [place] RBC (Bld) [#/Vol]3.93 10*6/uLLow4.20-6.00[facility] on above:Order Comment: Specimen Type: BLOOD SPECIMENOrdering Facility: [facility] Address:[address] [place], [place] [address]Performed By: #### 48987-7 ####[facility] LABCLIA [id number] [place] [address] [place] AMERICAWBC (Bld) [#/Vol]7.96 10*3/uLNormal3.70-11.00[facility] on above:Order Comment: Specimen Type: BLOOD SPECIMENOrdering Facility: [facility] Address:[address] [place], [place] [address]Performed By: #### 51421-5 ####[facility] LABCLIA [id number] [address] STREETCELIAC SCREENon 53-00-8475NMZSY DEAMIDATED IGA QUALNegativeNormalNegative, Test not IndicatedPremier Health [facility] Hospital on above:Order Comment: Specimen Type: BLOOD SPECIMENOrdering Facility: [facility] Address:[address] [place], [place] [address]Result Comment: This is used as an aid in diagnosis of celiac disease. Clinical correlation is required.The following results were obtained with an [employer] Lite Gliadin IgA SALBADOR Gliadin. Gliadin IgA values obtained with different manufacturers' assay methods may not be used interchangeably. The magnitude of the reported IgA levels cannot be correlated to an endpoint titer. Performed By: #### [id number] ####[facility] LABCLIA [id number] [address] [place] Gliadin peptide IgA Qn (S)4 UnitsNormal<20[facility] on above:Order Comment: Specimen Type: BLOOD SPECIMENOrdering Facility: [facility] Address:[address] [place], [place] [address]Performed By: #### [id number] ####[facility] LABCLIA [id number] [address] STATES OF AMERICAINTERPRETATIONNo serological evidence of celiac disease, however, if celiac disease is clinically suspected and patient is not on gluten-free diet, histological diagnosis may be considered. HLA testing may help with risk assessment.NormalPremier Health Miami [facility] Hospital on above:Order Comment: Specimen Type: BLOOD SPECIMENOrdering Facility: [facility] Address:[address] [place], [place] [address]Performed By: #### [id number] ####[facility] LABCLIA [id number] [place] [address] [place] TRANSGLUTAMINASE IGA ABS INTERPRETATIONNegativeNormalNegativePremier Health [facility] on above:Order Comment: Specimen Type: BLOOD SPECIMENOrdering Facility: [facility] Address:[address] [place], [place] [address]Result Comment: The following results were obtained with [employer] Partners[employer] Algisyse R h-tTG IgA SALBADOR.???R h-tTG IgA values obtained with different manufacturers' assay methods may not be used interchangeably. The magnitude of the reported IgA levels cannot be corelated to an endpoint???concentration.This is used as an aid in diagnosis of celiac disease. Clinical correlation is required.Performed By: #### [id number] ####[facility] LABCLIA [id number] [place] [address] [place] AMERICAtTG IgA Qn (S)<2Normal <4ClevelTrinity Health System East Campus on above:Order Comment: Specimen Type: BLOOD SPECIMENOrdering Facility: [facility] Address:[address] [place], [place] [address]Performed By: #### [id number] ####[facility] LABCLIA [id number] [place] [address] [place] AMERICACRP SerPl-mCncon 54-85-3492JPN [Mass/Vol]8.4 mg/dLHigh<0.9ClevelTrinity Health System East Campus on above:Order Comment: Specimen Type: BLOOD SPECIMENOrdering Facility: [facility] Address:[address] [place], [place] [address]Performed By: #### 1988-5, 04861-8, 3034-6, 44460-7 ####[facility] LABCLIA [id number] [place] [address] [place] AMERICACalprotectin (Stl) [Mass/Mass]on 02-15-8484MUDBZOAARUAD, FECAL LTWZLCDDUXJN54.0 ug/gHigh<50[facility] Butler HospitalComment on above:Order Comment: Specimen Type: STOOL SPECIMENOrdering Facility: [facility] Address:[address] [place], [place] [address]Performed By: #### 48015-0, 06847-2, PANCEF ####[facility] LABCLIA [id number] [place] [address] [place] AMERICACobalamin (Vitamin B12) [Mass/Vol]on 35-10-4697Mpkwymewhwgimv and review of laboratory resultsAbnormalCohio state university wex[facility] medical centerand [facility] Comprehensive metabolic 2000 panelon 32-02-5220Bkyygda [Mass/Vol]3.8 g/dLLow3.9 - 4.9 g/dLChappell Hill ClinicALP [Catalytic activity/Vol]141 U/LHigh38 - 113 U/L [facility] ClinicALT [Catalytic activity/Vol]14 U/L10 - 54 U/LCMartin Memorial Hospital Anion gap [Moles/Vol]15 mmol/L8 - 15 mmol/LCleveland ClinicAST [Catalytic activity/Vol]27 U/L14 - 40 U/LCleveland ClinicBilirubin [Mass/Vol]0.9 mg/dL0.2 - 1.3 mg/dLChappell Hill ClinicCalcium [Mass/Vol]9.1 mg/dL8.5 - 10.2 mg/dLAdena Pike Medical CenterChloride [Moles/Vol]101 mmol/L98 - 107 mmol/LCleveland ClinicCO2 [Moles/Vol]24 mmol/L22 - 30 mmol/LCleveland ClinicCreatinine [Mass/Vol]1.23 mg/dLHigh0.73 - 1.22 mg/dLAdena Pike Medical CenterGFR/1.73 sq M.predicted among non- blacks MDRD (S/P/Bld) [Vol rate/Area]62 mL/min/{1.73_m2}- [facility] Comment on above:Estimated Glomerular Filtration Rate (eGFR) is calculated using the 2020 CKD-EPI creatinine equation. This equation utilizes serum creatinine, sex, and age as parameters. The creatinine assay has traceable calibration to isotope dilution-mass spectrometry. Refer to KDIGO guidelines for clinical inte rpretation. In patients with unstable renal function, e.g. those with acute kidney injury, the eGFRmay not accurately reflect actual GFR.Glucose [Mass/Vol] 105 mg/hGGimg69 - 99 mg/dLAultman Orrville Hospitalment on above:The [place] Diabetes Association (ADA) provides guidance for [...] [place] Diabetes Association. Diabetes Care. 2016.39(Suppl 1). Potassium [Moles/Vol]3.9 mmol/L3.7 - 5.1 mmol/LCleveland ClinicProtein [Mass/Vol]7.2 g/dL6.3 - 8.0 g/dLChappell Hill ClinicSodium [Moles/Vol]140 mmol/L136 - 144 mmol/LCleveland ClinicUrea nitrogen [Mass/Vol]15 mg/dL9 - 24 mg/dL [facility] ClinicAlbumin [Mass/Vol]3.8 g/dLLow3.9-4.9[facility] Comment on above:Order Comment: Specimen Type: BLOOD SPECIMENOrdering Facility: [facility] Address:[address] [place] [address] Performed By: #### 1988-5, 91149-6, 3034-6, 44963-3 ####[facility] LABCLIA [id number] [place] [address] [place] AMERICAALP [Catalytic activity/Vol]141 U/QObhu65-638XlqakgcwpTrihealth Bethesda Butler HospitalComment on above:Order Comment: Specimen Type: BLOOD SPECIMENOrdering Facility: [facility] Address:[address] [place], [place] [address]Performed By: #### 1987-10, , 3033-11, ####[facility] LABCLIA [id number] [place] [address] [place] AMERICAALT [Catalytic activity/Vol]14 U/XVbgpuj45-81WlgitoirhPremier Health [facility] on above:Order Comment: Specimen Type: BLOOD SPECIMENOrdering Facility: [facility] Address:[address] [place], [place] [address]Performed By: #### 1987-10, , 3033-11, ####[facility] LABCLIA [id number] [place] [address] [place] AMERICAAnion gap [Moles/Vol]15 mmol/L Normal8-15[facility] on above:Order Comment: Specimen Type: BLOOD SPECIMENOrdering Facility: [facility] Address:[address] [place], [place] [address]Performed By: #### 1987-10, , 3033-11, ####[facility] LABCLIA [id number] [place] [address] [place] AMERICAAST [Catalytic activity/Vol]27 U/HHjedbt85-68KsauvvqtvPremier Health [facility] on above:Order Comment: Specimen Type: BLOOD SPECIMENOrdering Facility: [facility] Address:[address] [place], [place] [address]Performed By: #### , , 3033-11, ####[facility] LABCLIA [id number] [place] [address] [place] Bilirubin [Mass/Vol]0.9 mg/dLNormal0.2-1.3CTriHealth [facility] on above:Order Comment: Specimen Type: BLOOD SPECIMENOrdering Facility: [facility] Address:[address] [place] [address]Lfvfrqgij By: #### 1987-10, , 3033-11, 86496-2 ####[facility] LABCLIA [id number] [place] [address] [place] Calcium [Mass/Vol]9.1 mg/dLNormal8.5-10.2CTriHealth Bethesda North Hospital on above:Order Comment: Specimen Type: BLOOD SPECIMENOrdering Facility: [facility] Address:[address] [place], [place] [address]Performed By: #### 1987-10, , 3033-11, ####[facility] LABCLIA [id number] [place] [address] [place] Chloride [Moles/Vol]101 mmol/HRntkmk33-342GwturblxsPrem[facility] Health [facility] on above:Order Comment: Specimen Type: BLOOD SPECIMENOrdering Facility: [facility] Address:[address] [place], [place] [address]Performed By: #### 1987-10, , 3033-11, ####[facility] LABCLIA [id number] [place] [address] [place] CO2 [Moles/Vol]24 mmol/XRafefg63-48JppowterjPremier Health [facility] Hospital on above: Order Comment: Specimen Type: BLOOD SPECIMENOrdering Facility: [facility] Address:[address] [place], [place] [address]Performed By: #### , , 3033-11, ####[facility] LABCLIA [id number] [place] [address] [place] Creatinine [Mass/Vol]1.23 mg/dLHigh0.73-1.22[facility] on above:Order Comment: Specimen Type: BLOOD SPECIMENOrdering Facility: [facility] Address:[address] [place], [place] [address]Performed By: #### 1987-, 76551-9, 3033-6, 91627-0 ####[facility] LABIA [id number] [place] [id number] [place] Creatinine and Glomerular filtration rate.predicted panel (S/P/Bld)62 mL/min/1.73m???Normal>=60[facility] on above:Order Comment: Specimen Type: BLOOD SPECIMENOrdering Facility: [facility] Address:[address] [place], [place] [address]Result Comment: Estimated Glomerular Filtration Rate (eGFR) is calculated using the 2020 CKD-EPI cre atinine equation. This equation utilizes serum creatinine, sex, and age as parameters. The creatinine assay has traceable calibration to isotope dilution- mass spectrometry. Refer to KDIGO guidelines for clinical interpretation. In patients with unstable renal function, e.g. those with acute kidney injury, the eGFR may not accurately reflect actual GFR.Performed By: #### 1987-10, 93224-6, 6, 31170-5 ####[facility] LABIA [id number] [place] [address] [place] AMERICAGlucose [Mass/Vol]105 mg/bRLlyr49-68BnztsromuPremier Health [facility] on above:Order Comment: Specimen Type: BLOOD SPECIMENOrdering Facility: [facility] Address:[address] [place], [place] [address]Result Comment: The [place] Diabetes Association (ADA) provides [...] symptoms of hyperglycemia or hyperglycemic crisis, random plasmaglucose results greater than or equal to 200 mg/dL meet the criteria for diagnosis of diabetes.Reference: Standards of Medical Care in Diabetes 2016, [place] Diabetes Association. Diabetes Care. 2016.39(Suppl 1). Performed By: #### 1987-10, , 3033-11, ####[facility] LABCLIA [id number] [place] [address] [place] AMERICAPotassium [Moles/Vol]3.9 mmol/LNormal3.7-5.1CTriHealth Bethesda North Hospital on above:Order Comment: Specimen Type: BLOOD SPECIMENOrdering Facility: [facility] Address:[address] [place], [place] [address]Performed By: #### 1987-10, , 3033-11, ####[facility] LABIA [id number] [place] [address] [place] AMERICAProtein [Mass/Vol]7.2 g/dLNormal6.3-8.0[facility] on above:Order Comment: Specimen Type: BLOOD SPECIMENOrdering Facility: [facility] Address:[address] [place], [place] [address]Performed By: #### 1987-10, , 3033-11, ####[facility] LABIA [id number] [place] [address] [place] AMERICASodium [Moles/Vol]140 mmol/TRdhabv042-917SsskldrysPremier Health [facility] on above:Order Comment: Specimen Type: BLOOD SPECIMENOrdering Facility: [facility] Address:[address] [place], [place] [address]Performed By: #### 1987-10, , 3033-11, ####[facility] LABIA [id number] [place] [id number] [place] AMERICAUrea nitrogen [Mass/Vol]15 mg/dL Normal9-24[facility] on above:Order Comment: Specimen Type: BLOOD SPECIMENOrdering Facility: [facility] Address:[address] [place], [place] [address]Performed By: #### 1987-10, 95778-1, 3034-6, 39799-8 ####[facility] LABIA [id number] [place] [address] [place] AMERICAG lamblia+Cryptosp Ag Stl Ql IAon 04-20-2024G. lamblia+Cryptosporidium sp Ag IA Ql (Stl) CRYPTOSPORIDIUM ANTIGEN BY EIA: Negative for Cryptosporidium by EIA. GIARDIA ANTIGEN BY EIA: Negative for Giardia lamblia by EIA.NormalPremier Health [facility] Hospital on above:Performed By: #### 11968-9, 03367-0 ####[facility] LAB[facility] [id number] [place] [address] [place] AMERICAGastrointestinal pathogens identified BRYN+probe Nom (Stl)on 04-20-2024 Campylobacter sp DNA BRYN+probe Nom (Unsp spec)Not detectedNormalNot Detected [facility] on above:Order Comment: Specimen Type: STOOL SPECIMENOrdering Facility: [facility] Address:[address] [place], [place] [address]Performed By: #### 34130-1, 09423-1 ####[facility] LABIA [id number] [place] [address] [place] AMERICASalmonella sp DNA BYRN+probe Ql (Unsp spec)Not detectedNormalNot DetectedPrem[facility] Health [facility] on above:Order Comment: Specimen Type: STOOL SPECIMENOrdering Facility: [facility] Address:[address] [place], [place] [address]Performed By: #### 70600-3, 34237-6 ####[facility] LABIA [id number] [address] STATES OF AMERICAShiga toxin stx gene BRYN+probe Nom (Unsp spec)Not detectedNormalNot DetectedPrem[facility] Health [facility] on above:Order Comment: Specimen Type: STOOL SPECIMENOrdering Facility: [facility] Address:[address] [place], [place] [address]Performed By: #### 95115- 1, 09336-6 ####[facility] LABCLIA [id number] [place] [address] [place] AMERICAShigella sp DNA BRYN+probe Ql (Unsp spec)Not detectedNormalNot DetectedTrihealth [facility] Hospital Comment on above:Order Comment: Specimen Type: STOOL SPECIMENOrdering Facility: [facility] Address:[address] [place] [address] Performed By: #### 44202-4, 11886-6 ####[facility] LABIA [id number] [place] [address] [place] HBV surface Ag Ql (S)on 47-73-8386Ytydlnurbwaijt and review of laboratory resultsNormalClevelMercy HospitalHBV surface Ag Ser Qlon 04-20-2024 HBV surface Ag Ql (S)NegativeNormalNegativeTrihealth Bethesda Butler HospitalComment on above:Order Comment: Specimen Type: BLOOD SPECIMENOrdering Facility: [facility] Address:[address] [place], [place] [address]Performed By: #### 5195-3 ####[facility]AMPUSIA [id number] [place] [address] [place] AMERICAIgA SerPl-mCncon 75-70-1651MnL [Mass/Vol]282 mg/uXUayswq04-879XqealqzogTrihealth Bethesda Butler HospitalComment on above:Order Comment: Specimen Type: BLOOD SPECIMENOrdering Facility: [facility] Address:[address] [place] [address] Performed By: #### 2458-8 ####[facility]AMPUSIA [id number] [place] [address] [place] [employer] binding capacity panelon 81-67-4616Xyzj [Mass/Vol]26 ug/dLLow41 - 186 ug/dLAdena Pike Medical CenterIron binding capacity [Mass/Vol]256 ug/dL232 - 386 ug/dLAdena Pike Medical CenterIron/TIBC [Molar ratio]10.2 %Low15.0 - 57.0 %Adena Pike Medical CenterIron [Mass/Vol]26 ug/mGHbt47-495WjxirhngsTrihealth Bethesda Butler HospitalComment on above:Order Comment: Specimen Type: BLOOD SPECIMENOrdering Facility: [facility] Address:[address] [place], [place] [address]Performed By: #### 1987-10, , 3033-11, 53767-1 ####[facility] LABCLIA [id number] [place] [address] [place] Iron binding capacity [Mass/Vol]256 ug/aAQmnhcd423-787CfyubsfsoTrihealth Bethesda [facility] Hospital Comment on above:Order Comment: Specimen Type: BLOOD SPECIMENOrdering Facility: [facility] Address:[address] [place] [address] Performed By: #### 1987-10, , 3033-11, 64585-7 ####[facility] LABCLIA [id number] [address]Iron/TIBC [Molar ratio]10.2 %Low15.0-57.0Tri[facility] Butler HospitalComascension borgess allegan hospital on above:Order Comment: Specimen Type: BLOOD SPECIMENOrdering Facility: [facility] Address:[address] [place], [place] [address]Performed By: #### 1987-10, , 3033-11, 27737-8 ####[facility] LABCLIA [id number] [place] [id number] [place] AMERICALaboratory - Chemistry and Chemistry - challengeon 01-41-7073FDY [Mass/Vol]8.4 mg/dLHighNINF - 0.9 mg/dLAdena Pike Medical CenterTransferrin [Mass/Vol]209 mg/dL200 - 360 mg/dLAdena Pike Medical CenterQgfest35-bmxnofolkkvcbx D3 [Mass/Vol]36.6 ng/mL31.0 - 80.0 ng/mLClevelnovant health mint hill medical center ClinicComment on above: Classification of 25 [place] Vitamin D status: Deficiency/Insufficiency: < or = 30 ng/ml. Sufficiency/Optimal Levels: 31-80 ng/mL Toxicity: > 100 ng/mL. Test performed by chemiluminescent immunoassay. Cobalamin (Vitamin B12) [Mass/Vol]1458 pg/bVRfac878 - 1245 pg/mLCMartin Memorial Hospital Laboratory - Microbiology and Antimicrobial susceptibilityon 04-20-2024. difficile toxin genes BRYN+probe Ql (Stl)NegativeNegative for C. difficile toxin by PCRAdena Pike Medical CenterHBV surface Ag Ql (S)NegativeNegativeAdena Pike Medical CenterNo Panel Informationon 37-72-1732Gnrezatmdcozmg and review of laboratory results AbnormalGreene Memorial HospitalPAN ELASTASE, FECALon 04-20-2024 ELASTASE INTERPRETATIONNormalNormalNormalClevelTrinity Health System East Campus on above:Order Comment: Specimen Type: STOOL SPECIMENOrdering Facility: [facility] Address:[address] [place], [place] [address]Performed By: #### 18076-4, 81212-4, PANCEF ####[facility] LABIA [id number] [address] [place] ELASTASE-1 VGYYGICEBIDHB834 ug/gNormal>=200[facility] on above:Order Comment: Specimen Type: STOOL SPECIMENOrdering Facility: [facility] Address:[address] [place], [place] [address]Result Comment: Interpretation:<100 ug/g: Severe Exocrine Pancreatic Yqkxdcjuphgda374-897 ug/g: Mild to Moderate Exocrine Pancreatic Insufficiency>=200 ug/g: NormalPerformed By: #### 40551-8, 74353-9, PANCEF ####[facility] LABIA [id number], [place] [address] [place] Transferrin SerPl-mCncon 60-94-3941Otdqmzhnwpw [Mass/Vol]209 mg/sKFkemkh179-458 [facility] on above:Order Comment: Specimen Type: BLOOD SPECIMENOrdering Facility: [facility] Address:[address] [place], [place] [address]Performed By: #### 1988-5, 67732-9, 3034-6, 73785-7 ####[facility] LABCLIA [id number] [facility] [place]09XRWELCDB[place]EP[place], [place] [address] [place] AMERICATransferrin [Mass/Vol]on 22-55-6374Yqaregaqqmnwxo and review of laboratory resultsNoHighland District Hospital Vit B12 SerPl-mCncon 37-29-5982Ediyguqhw (Vitamin B12) [Mass/Vol]1458 pg/mLHigh 232-1245CMount St[address] Mary HospitalvelandComment on above:Order Comment: Specimen Type: BLOOD SPECIMENOrdering Facility: [facility] Address:[address] [place], [place] [address]Performed By: #### [id number] ####[facility] LABIA [id number] [place] [id number] [facility] AMERICAANA BY IFA SCREENOrdered By: Nathaly Black on 03-31-2024 Interpretation and review of laboratory resultsNormJoint Township District Memorial HospitalNuclear Ab Ql (S)NegativeNegativeUniversity Hospitals TriPoint Medical Center on above:Anti-nuclear antibody test is used as an aid in diagnosis of systemic autoimmune diseases. Where pos itive and clinically warranted, follow-up using disease-specific testing is recommended. Low positive titers are not uncommon with advanced age, certain chronic infections, and malignancies among others. Test methodology: Indirect fluorescence immunoassay (IFA) using HEp-2 cells. [facility] NEUTRO CYTO ABon [id number] (ANCA)Equivocal staining seen on the ethanol (indirect immunofluorescence screen) slide but negative results on follow up confirmatory testing. Anti-nuclear antibody test may be considered. Clinical correlation is required.[facility] Myeloperoxidase Ab Qn (S)NINJ.W. Ruby Memorial HospitalNeutrophil cytoplasmic Ab.classic IF Ql (S)NegativeNegativeAdena Pike Medical CenterNeutrophil cytoplasmic Ab.perinuclear IF Ql (S)NegativeNegativeAdena Pike Medical CenterProteinase 3 Ab Qn (S)NINFCohio state university wexner medical centerand ClinicStaff Review (ANCA)Reviewed by Sundar Hilario MD, PhDAdena Pike Medical CenterThis test is used as an aid in diagnosis of patients with autoimmune vasculitides. The final interpretation should be done in conjunction with ANCA test results and clinical correlation. [facility] Memorial HospitalBLOOD TB SCREENon 03-31-2024M. tuberculosis tuberculin stim IFN-g Ql (Bld)NegativeAdena Pike Medical CenterMitogen minus Nil1.71- PINFCohio state university wexner medical centerand Olivia Hospital And ClinicsTB Gamma InterpretationInfection with M. tuberculosis complex is unlikely. If latent tuberculosis infection is highly suspected, a negative result does not rule out the infection. Specimens from immunocompromised patients and those <5 years of age may show false negative results. In case of a contact investigation, please repeat 8-12 weeks after a known exposure.[facility] CenterTB Nil0.00NINFAdena Pike Medical CenterTB1 Ag minus Nil NINJ.W. Ruby Memorial HospitalTB2 Ag minus Nil0.00NINFGreene Memorial Hospital CRITHIDIA LUCILIAEOrdered By: Sherie Vásquez on 33-39-7806MOM double strand Ab IF Crithidia luciliae Ql (S)NegativeNegativeAdena Pike Medical CenterComment on above: Crithidia luciliae assay is used as an aid in diagnosis of systemic lupus erythematosus (SLE). A negative result cannot rule out SLE. Low positive titers may be seen with other systemic autoimmune diseases. Clinical correlation is required.DNA double strand Ab IF Crithidia luciliae Ql (S)Ordered By: Sehrie Vásquez on 02-78-1799Cuumdgztnrpayp and review of laboratory resultsNormal [facility]-REACTIVE PROTEINon 21-98-3148NBD [Mass/Vol]2.1 mg/dLHighNINF - 0.9 mg/dLAdena Pike Medical CenterC3 COMPLEMENTon 97-98-7270Dcrwwmluur C3 [Mass/Vol]168 mg/tOUlti19 - 166 mg/dLAdena Pike Medical CenterC4 COMPLEMENTon 81-97-5265Bgciaulths C4 [Mass/Vol]42 mg/dL13 - 46 mg/dLMemorial Health System [facility] W Auto Differential panel (Bld)on 22-72-5265Ibhggykpi (Bld) [#/Vol]0.04 10*3/uL NINFCleveland ClinicBasophils/100 WBC (Bld)0.6 %[facility] Medical CenterDifferential cell count method Nom (Bld)AutoCleveland ClinicEosinophils (Bld) [#/Vol]NINF [facility] CenterEosinophils/100 WBC (Bld)0.0 %[facility] Medical CenterErythrocyte distribution width (RBC) [Ratio]15.6 %High11.5 - 15.0 %[facility] Hematocrit (Bld) [Volume fraction]38.4 %Low39.0 - 51.0 %[facility] Hemoglobin (Bld) [Mass/Vol]11.9 g/dLLow13.0 - 17.0 g/dLAdena Pike Medical CenterImmature granulocytes (Bld) [#/Vol]NINFClevelMercy Health Springfield Regional Medical CenterImmature granulocytes/100 WBC (Bld)0.3 %[facility] CenterInterpretation and review of laboratory results AbnormalAdena Pike Medical CenterLymphocytes (Bld) [#/Vol]1.21 10*3/[facility] Lymphocytes/100 WBC (Bld)17.7 %[facility] HospitalH (RBC) [Entitic mass]29.7 pg 26.0 - 34.0 pgCUniversity Hospitals Portage Medical CenterHC (RBC) [Mass/Vol]31.0 g/dL30.5 - 36.0 g/dL [facility] HospitalV (RBC) [Entitic vol]95.8 fL80.0 - 100.0 [facility] Monocytes (Bld) [#/Vol]0.80 10*3/uLNINFAdena Pike Medical CenterMonocytes/100 WBC (Bld) 11.7 %[facility] CenterNeutrophils (Bld) [#/Vol]4.77 10*3/[facility] Neutrophils/100 WBC (Bld)69.7 %[facility] CenterNucleated RBC (Bld) [#/Vol]NINF [facility] CenterNucleated RBC/100 WBC (Bld) [Ratio]0.0 %/100 WBCAdena Pike Medical Center Platelet mean volume (Bld) [Entitic vol]10.7 fL9.0 - 12.7 fLCMartin Memorial Hospital Platelets (Bld) [#/Vol]243 10*3/[facility] Memorial HospitalRBC (Bld) [#/Vol]4.01 10*6/uL Low4.20 - 6.00 m/[facility] HospitalWBC (Bld) [#/Vol]6.84 10*3/uLCincinnati Va Medical CenterCK [Catalytic activity/Vol]on 02-12-2409Fqgjmsiwmwkhcg and review of laboratory resultsNormalCSt. Elizabeth HospitalCREATINE KINASE/CKon 18-41-9600NH [Catalytic activity/Vol]56 U/L51 - 298 U/LCleveland ClinicComplement C4 [Mass/Vol]on 27-07-7291Gstizrnzbwzhcx and review of laboratory resultsNormalCSalem City Hospitalprehensive metabolic 2000 panelon 47-76-6406Iklikkz [Mass/Vol]4.1 g/dL3.9 - 4.9 g/dLChappell Hill ClinicALP [Catalytic activity/Vol]121 U/LHigh38 - 113 U/LCleveland ClinicALT [Catalytic activity/Vol]13 U/L10 - 54 U/LCleveland ClinicAnion gap [Moles/Vol]10 mmol/L8 - 15 mmol/LCleveland ClinicAST [Catalytic activity/Vol]22 U/L14 - 40 U/LCleveland ClinicBilirubin [Mass/Vol]0.7 mg/dL0.2 - 1.3 mg/dLChappell Hill ClinicCalcium [Mass/Vol]9.0 mg/dL8.5 - 10.2 mg/dLChappell Hill ClinicChloride [Moles/Vol]105 mmol/L98 - 107 mmol/LCleveland ClinicCO2 [Moles/Vol]27 mmol/L22 - 30 mmol/L [facility] CenterCreatinine [Mass/Vol]1.26 mg/dLHigh0.73 - 1.22 mg/dLChappell Hill ClinicGFR/1.73 sq M.predicted among non-blacks MDRD (S/P/Bld) [Vol rate/Area]60 mL/min/{1.73_m2}- PINJ.W. Ruby Memorial HospitalComment on above:Estimated Glomerular Filtration Rate (eGFR) is calculated using the 2020 CKD-EPI creatinine equation. This equation utilizes serum creatinine, sex, and age as parameters. The creatinine assay has traceable calibration to isotope dilution-mass spectrometry. Refer to KDIGO guidelines for clinical interpretation. In patients with unstable renal function, e.g. those with acute kidney injury, the eGFRmay not accurately reflect actual GFR.Glucose [Mass/Vol]95 mg/dL74 - 99 mg/dL [facility] Orrville Hospitalment on above:The [place] Diabetes Association (ADA) provides guidance for cutoff values for fasting glucose andrandom glucose. The ADA defines fasting as no caloric intake for at least 8 hours. Fasting plasma gl ucose results between 100 to 125 mg/dL indicate [...] [place] Diabetes [employer]. Diabetes Care. 2016.39(Suppl 1). Potassium [Moles/Vol]4.1 mmol/L3.7 - 5.1 mmol/LCleveland ClinicProtein [Mass/Vol]7.0 g/dL6.3 - 8.0 g/dLOhiohealthveland ClinicSodium [Moles/Vol]142 mmol/L136 - 144 mmol/LCleveland ClinicUrea nitrogen [Mass/Vol]17 mg/dL9 - 24 mg/dL [facility] CenterNo Panel Informationon 72-81-7797Weaggipxkztikg and review of laboratory resultsAbnormalClevelECU Health Edgecombe Hospital ClinicPROTEIN / CREATININE RATIOon 09-11-8965Aakltvz/Creatinine (U) [Mass ratio]0.17 mg/mgHighNINF - 0.15 mg/mgAdena Pike Medical CenterComment on above:Adult Proteinuria Categories: <0.15 mg/mg is considered normal to mildly increased 0.15 - 0.50 mg/mg is considered moderately increased >0.50 mg/mg is considered severely increased KDIGO. (2013). KDIGO 2012 Clinical Practice Guideline for the Evaluation and Management of Chronic Kidney Disease. Official Journal of the International Society of Nephrology, 3(1), 1-150. Protein/Creatinine (U) [Mass ratio]on 67-93-3963Edekpzgbha (U) [Mass/Vol]34.5 mg/dL20.0 - 300.0 mg/dLAdena Pike Medical CenterInterpretation and review of laboratory resultsAbnormalCleveland ClinicProtein (U) [Mass/Vol]6 mg/dL0 - 20 mg/dL [facility] ClinicUrinalysis complete panel (U)on 03-30-2024 Bacteria LM.HPF (Urine sed) [#/Area]NegativeNegative /HPFAdena Pike Medical Center Bilirubin Ql (U)NegativeNegativeChappell Hill ClinicClarity (Unsp spec)ClearClear [facility] CenterColor (U)YellowYellowAdena Pike Medical CenterEpithelial cells LM.HPF (Urine sed) [#/Area]None Seen/HPFAdena Pike Medical CenterGlucose Test strip (U) [Mass/Vol]NegativeNegativeAdena Pike Medical CenterHemoglobin Ql (U)NegativeNegative [facility] CenterHyaline casts (Urine sed) [#/Area]4-10 /LPFAbnormal0 /LPF [facility] CenterInterpretation and review of laboratory resultsAbnormalCleveland ClinicKetones Ql (U)NegativeNegativeAdena Pike Medical CenterLeukocyte esterase Test strip Ql (U)NegativeNegativeAdena Pike Medical CenterNitrite Ql (U)NegativeNegative [facility] ClinicpH (U)6.5 [pH]NINF - 8.5Cleveland ClinicProtein (U) [Mass/Vol] NegativeNegativeAdena Pike Medical CenterRBC LM.HPF (Urine sed) [#/Area]0-2 /HPF0-2 /HPF [facility] Memorial Hospitalpecific gravity (U) [Rel density]1.0101.005 - 1.030A[facility] Medical CenterUrobilinogen Ql (U)0.2 EU/dL0.2-1.0 EU/dLAdena Pike Medical CenterWBC LM.HPF (Urine sed) [#/Area]0-5 /HPF0-5 /HPFAdena Pike Medical CenterThis test was developed and its performance characteristics determined by [facility]'s [facility] Laboratory Medicine [place] ([facility]). It has not been cleared or approved by the FDA. [facility] is regulated under CLIA as qualified to perform high-complexity testing. Thistest is used for clinical purposes. It should not be regarded as investigational or for research. [facility] 06-26-7499CGBEJTANNCE: - Exam indication: Pericardial Disease - The left ventricle is normal in size. Left ventricular systolic function is normal. EF = 55 5% (visual est.) - The right ventricle is normal in size. Right ventricular systolic function is normal. - The patient has not had a prior CC echocardiographic exam for comparison. * * * Final * * *[facility] Echocardiography Report: Transthoracic Echo [facility] Date of service: 03/26/2024 2:34:18 PM Ordering physician: LOIUSE CESAR Indication: Pericardial Disease Technologist: Marlyn Thomas RDCS and staff Interpreting physician: Romario [...] septum. PERICARDIUM There is no pericardial effusion. [facility] CARDIOLOGYEchocardiographyEchocardiography Report: Transthoracic Echo [facility] Date of service: 03/26/2024 2:34:18 PM Ordering physician: LOUISE CESAR Indication: Pericardial Disease Technologist: Marlyn Thomas [facility] and staff Interpreting physician: Romario [...] not evaluated due to inconsistent or technically suboptimaldata. Mitral annular lateral E/e': 5.1. Mitral annular [...] * * Final * * * CC [facility] Medical Image : [id number] [facility] Medical CenterLVEF ECHOon 03-66-8994EH Ejection Sbljofks70 %[facility] Comment on above:(visual est.) EF > 52 An LV Ejection Fraction of > 50% is normal No Panel Informationon 38-76-2933Wyelcrfyx ClinicCNOVon 35-01-2511ZLDNZkuwgz Visit (BERNARD) SAV RAYMUNDO ([id number]) 1950 M Date Time Provider Department 03/17/24 1:30 PM RUMA OSHEA During your visit today, we recorded the following information about you: Temperature Pulse Respiration Blood pressure 97.3 degrees 88/minute 16/minute 132/78 Weight Height 94.3 kg 1.778 m Ruma Oshea PA-C 03/17/2024 2:26 PM Signed [facility] - OUTPATIENT THORACIC SURGERY CLINIC NOTE PT NAME: Sav Cantu Breanne [facility] NO: [id number] THORACIC SURGEON: Ronaldo Flood M.D. 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 Right pleura, biopsy: - Chronic pleuritis with mesothelial hyperplasia (see comment). B. Right pleura, biopsy: - Acute organizing and chronic pleuritis (see comment). TX/ 11/22/2023 Diagnosis Comment A. 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 He was hospitalized 12/20/23 for anasarca, possible autoimmune disease, recurrent pleural effusion. Imaging did not reveal any acute findings. Patient was admitted to [facility] and started on lasix drip, improving anasarca and pleural effusion. Pleurx catheter was drained daily with significantly decreasing output [phone]. He was worked up for an autoimmune [...] to clinic today for postoperative visit. [facility] RN called in 03/03 reporti (more content not included)...NormalHillcrest HospitalCNOVOffice Visit (MOPL) SAV RAYMUNDO ([id number]) 1950 M Date Time Provider Department 03/17/24 10:20 AM LOUISE CESAR MOPL During your visit today, we recorded the following information about you: Pulse Blood pressure Weight 82/minute 126/84 93 kg Jacqueline García, EVAN 03/17/2024 10:25 AM Signed Sav Raymundo is a very pleasant 74 year old male who presents today for pleural effusion (November 19), still has chest drainage tube Pleurex tube After surgery, fluid still gathering around right lung. Last seen by Pulmonary Doctor? Dr. Clemente in [facility]. Outside of [facility]. Is Dr. Cesar on Care Team as Government Instructor? no Meds reviewed - Refills pended?no Since last seen Have you had any resp illnessses, COVID, exacerbations or recent visits to ER?hospital/Urgent-Care? [place] December 19 x 1 week, Vaccines: Immunization History Administered Date(s) Administered COVID-19 original vaccine, age 12+ yr, monovalent ([facility] - PURPLE TOP) 08/15/2020 08/22/2020 09/13/2020 05/10/2021 influenza (aIIV3) vaccine, age 65+ yr, trivalent, PF (FLUAD) 05/09/2020 pneumococcal conjugate (PCV13) vaccine, 13 valent (PREVNAR 13) 11/26/2016 pneumococcal polysaccharide (PPV23) vaccine, 23 valent (PNEUMOVAX 23) 02/03/2018 tetanus diphtheria (Td) vaccine, age 7+ yr, 5 Lf tetanus, PF (TENIVAC) 06/04/2018 08/30/2018 zoster (RZV) vaccine, recombinant (SHINGRIX) 08/30/2018 Modified Medical Research [place] Dyspnea Scale (MMRC) I stop for breath [...] year old male who presents to the [facility] [place]. Consultation requested by Dr. Hopper and Dr. Ronaldo Flood. My final recommendations/evaluation will be communicated back to the requesting physician by way of shared medical record or letter via US mail. This note was partially created using [employer] Voice recognition software and is inherently subject to errors including those of syntax and ?sound-alike? substitutions which may escape proofreading. In such instances, original meaning may be extrapolated by contextual derivation. 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 Mr. Kumar presents with an interesting history. He is a semiretired gentleman from the [facility], with virtually no past medical history, [...] and he was referred to a local mineral industry teacher. He underwent thoracentesis several times, each time pleural fluid analysis showed exudative fluid. CT scan was obtained locally which did not reveal much except pleural effusion. CT scan also shows pericardial effusion. He was then referred by his local mineral industry teacher to [facility] for a pleurodesis. In November 2023, he underwent VATS pleurodesis (mechanical and doxycycline), with pleural biopsy, and the Pleurx catheter was also placed. Analysis of the pleural fluid and biopsies of the pleura showed acute and chronic pleuritis with organization, but no malignancy. We do not have pleural fluid chemical or hematological analysis done in [facility], but cytology was negative for malignant cells. He was discharged with Pleurx catheter, and and has been draining pleural fluid about 500 to 800 mL every other day. And his dry cough has also been persistent. In December 2023, he was sent to [facility] after seeing thoracic surgery ADRIENNE for anasarca, and was admitted. His abdomen and subcutaneous tissues especially in his legs were swollen, no ascites found, but significant skin edema including blisters were seen. He improved with Lasix drip, was evaluated by rheumatology, and so far his sero (more content not included)...NormalHillcrest HospitalCT CHEST W IVCONon [id number] CHEST W IVCON* * *Final Report* * * DATE OF [...] MD on Mar 21 2024 4:33PM EST [id number] HospitalNITRIC OXIDE, EXHALEDon 03-17-2024 [place], BOWL SANDER 03/17/2024 8:16 AM RESPIRATORY THERAPY ORAL EXHALED [...] Oxide (ppb) 03/17/2024 13.0 NAME: [place], YAZMIN PATIENT NAME: Sav Raymundo DATE: March 17, 2024 TIME: 8:16 AM [facility] HospitalNo Panel Informationon [id number] (ml/min/mmHg)21.86ml/min/mmHgCleveland ClinicDLCO LLN (ml/min/mmHg)15.50 ml/min/mmHgCleveland ClinicDLCO PREDICTED (ml/min/mmHg)25.43ml/min/mmHgCleveland ClinicDLCO ULN (ml/min/mmHg)35.37ml/min/mmHgCleveland ClinicDLCO/VA (ml/min/mmHg/L)4.85ml/min/mmHg/LCleveland ClinicDLCO/VA PREDICTED (ml/min/mmHg/L)3.84ml/min/mmHg/LCleveland ClinicDLCOcor PREDICTED (ml/min/mmHg) 25.43ml/min/mmHgCleveland ClinicERV BOX (L)0.01 LCleveland ClinicERV PREDICTED (L)1.32 L/SCleveland ClinicFRC Box (L)2.34 LCleveland ClinicIC BOX (L)2.71 L Espinosa ClinicIC PREDICTED (L)2.65 L/SCleveland ClinicRV Box (L)2.07 L [facility]osa ClinicRV Box PREDICTED (L)2.51 LCleveland ClinicRV/TLC Box (%)44 % [facility]osa ClinicRV/TLC Box PREDICTED (%)37 %Espinosa ClinicSVC LLN (L)2.94 L/S [facility]osa ClinicSVC PREDICTED (L)3.97 L/SCleveland ClinicSVC ULN (L)5.01 L/S [facility]osa ClinicTLC Box (L)4.72 LCleveland ClinicTLC Box PREDICTED (L)7.03 L [facility]osa ClinicVA (L)4.51 LCleveland ClinicVA PREDICTED (L)6.81 LCleveland ClinicVC (L) BOX2.72 LCohio state university wexner medical centerand [facility] [address] [place] [address] Test Date: 2024-03-17 Pat Name: ANG BREANNE Department: Room: Gender: Male 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 Lung Volumes repeatable x 3. //MW IMPRESSION: Decrease in TLC indicates restriction. The diffusing capacity is normal. Electronically Signed On 03-17-2024 14:02:07 EDT by Kathy Hartman MD ID: [id number] Name: BREANNESAV Race: White Ht: 69.96 in Wt: 209.44 lbs Age: 74 Gender: Male : 1950 Dx: Idiopathic interstitial pulmonary disease_ Smoking Hx: Non-smoker Doctor: LOUISE CESAR Test Date: 03/17/2024 Site: [facility] Tech: Was, Bryn PRE-BRONCH POST-BRONCH Pre LLN [...] Volumes repeatable x 3. //MW PULMONARY FUNCTION LABAdena Pike Medical CenterXR CHEST 2V FRONTAL/LATon [id number] CHEST 2V FRONTAL/LAT* * *Final Report* * * DATE OF [...] noted slightly increased. Right-sided Pleurx catheter present. Rebar Fabricator: ALONSO Transcribe Date/Time: Mar 19 2024 4:42P Dictated by : KALEY CHAMBERS MD This examination was interpreted and the report reviewed and electronically signed by: KALEY CHAMBERS MD on Mar 19 2024 4:43PM EST [id number] Hospital Medical Center Chest PA and Lateralon [id number]: Interval decrease in size of small right-sided pleural effusion with adjacent atelectasis/consolidations. Transcribed Using Voice Recognition Transcribe Date/Time: Feb 05 2024 12:51P Dictated by: SHAWN TALAVERA MD This examination was interpreted and the report reviewed and electronically signed by: SHAWN TALAVERA MD on Feb 05 2024 12:52PM EST [facility] RADIOLOGY* * *Final Report* * * DATE OF [...] of small right-sided pleural effusion with adjacent atelectases/consolidations. No significant left pleural effusion or pneumothorax. Cardiomediastinal silhouette: Stable cardiomediastinal silhouette. Bones and soft tissues: Degenerative changes are present within the thoracic spine. [facility] RADIOLOGYProvider, [facility] [place] - 02/05/2024 * * *Final Report* * [...] of small right-sided pleural effusion with adjacent atelectases/consolidations. No significant left pleural effusion or pneumothorax. Cardiomediastinal silhouette: Stable cardiomediastinal silhouette. Bones and soft tissues: Degenerative changes are present within the thoracic spine. IMPRESSION IMPRESSION: Interval decrease in size of small right-sided pleural effusion with adjacent atelectasis/consolidations. Transcribed Using Voice Recognition Transcribe Date/Time: Feb 05 2024 12:51P Dictated by: SHAWN TALAVERA MD This examination was interpreted and the report reviewed and electronically signed by: SHAWN TALAVERA MD on Feb 05 2024 12:52PM EST [facility] CenterXR Chest PA and LateralOrdered By: [facility] Provider on 02-05-2024 [facility] Medical CenterCNOVon [id number] Visit (BERNARD) SAV RAYMUNDO ([id number]) 1950 M Date Time Provider Department 02/04/24 1:30 PM TITA LANDRY During your visit today, we recorded the following information about you: Temperature Pulse Respiration Blood pressure 97.1 degrees 75/minute 16/minute 120/69 Weight Height 90.7 kg 1.829 m Tita Landry APRN.CNP 02/05/2024 4:19 PM Signed [facility] [place] DEPARTMENT OF THORACIC SURGERY OUTPATIENT VISIT DATE February 04, 2024 OUTPATIENT VISIT TYPE ESTABLISHED PT NAME: Sav Cantu Breanne [facility] NO: [id number] THORACIC SURGEON: Ronaldo Flood M.D. 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 Right pleura, biopsy: - Chronic pleuritis with mesothelial hyperplasia (see comment). B. Right pleura, biopsy: - Acute organizing and chronic pleuritis (see comment). TX/ 11/22/2023 Diagnosis Comment A. 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 He was hospitalized 12/20/23 for anasarca, possible autoimmune disease, recurrent pleural effusion. Imaging did not reveal any acute findings. Patient was admitted to [facility] and started on lasix drip, improving anasarca and pleural effusion. Pleurx catheter was drained daily with significantly decreasing output [phone]. He was worked up for an autoimmune [...] normal, no suspicious rashes (more content not included)...Normal [facility] HospitalXR CHEST 2V FRONTAL/LATon [id number] CHEST 2V FRONTAL/LAT* * *Final Report* * * DATE OF [...] of small right-sided pleural effusion with adjacent atelectases/consolidations. No significant left pleural effusion or pneumothorax. Cardiomediastinal silhouette: Stable cardiomediastinal silhouette. Bones and soft tissues: Degenerative changes are present within the thoracic spine. IMPRESSION: Interval decrease in size of small right-sided pleural effusion with adjacent atelectasis/consolidations. Transcribed Using Voice Recognition Transcribe Date/Time: Feb 05 2024 12:51P Dictated by: SHAWN TALAVERA MD This examination was interpreted and the report reviewed and electronically signed by: SHAWN TALAVERA MD on Feb 05 2024 12:52PM EST [id number] Hospital [facility] Chest PA and Lateralon 94-49-5166Eyryajcvz Study observation (narrative)[facility] CenterCNOVon 82-34-9153CJEVXhbclf Visit (BERNARD) SAV RAYMUNDO ([id number]) 1950 M Date Time Provider Department 01/06/24 2:00 PM RUMA OSHEA During your visit today, we recorded the following information about you: Temperature Pulse Respiration Blood pressure 97.2 degrees 80/minute 16/minute 137/73 Weight Height 97.3 kg 1.829 m Ruma Oshea PA-C 01/06/2024 2:58 PM Signed [facility] - OUTPATIENT THORACIC SURGERY CLINIC NOTE PT NAME: Sav Raymundo [facility] NO: [id number] THORACIC SURGEON: Ronaldo Flood M.D. 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 Patient was admitted to [facility] and started on lasix drip, improving anasarca and pleural effusion. Pleurx catheter was drained daily with significantly decreasing output [phone]. He was worked up for an autoimmune [...] clinic. Patient does have follow up with superintendent oil well services today and mineral industry teacher next week. Will fax over recent medical information to mineral industry teacher. Patient also going on a bus trip [...] old male with pm (more content not included)...Normal [facility] HospitalXR CHEST 2V FRONTAL/LATon 90-13-1539PT CHEST 2V FRONTAL/LAT* * *Final Report* * * DATE OF [...] MD on Jan 08 2024 9:10PM EST [id number] HospitalBasic metabolic 2000 panelon 01-01-3491Bvybu gap [Moles/Vol]14 mmol/LNormal8-15Hillcre HospitalComment on above:Order Comment: Specimen Type: BLOOD SPECIMEN Ordering Facility: [facility] Address: [address] [place], [place] [address]Performed By: #### 17799-4 #### [facility] CLIA [id number] [address] [place] [address] [place] OF AMERICACalcium [Mass/Vol]9.0 mg/dL Normal8.5-10.2Hillcre HospitalComment on above:Order Comment: Specimen Type: BLOOD SPECIMEN Ordering Facility: [facility] Address: [address] [place], [place] [address]Performed By: #### 74890-8 #### [facility] CLIA [id number] [address] [place] [address] [place] OF AMERICAChloride [Moles/Vol]101 mmol/HJzcuby55-250Ddnwzqfvh HospitalComment on above:Order Comment: Specimen Type: BLOOD SPECIMEN Ordering Facility: [facility] Address: [address] [place], [place] [address]Performed By: #### 87910-9 #### [facility] CLIA [id number] [address] [place] [address] [place] OF AMERICACO2 [Moles/Vol]23 mmol/L Ezkzpg63-37Zwwwgnsba HospitalComment on above:Order Comment: Specimen Type: BLOOD SPECIMEN Ordering Facility: [facility] Address: [address] [place], [place] [address]Performed By: #### 30730-9 #### [facility] CLIA [id number] [address] [place] [address] [place] AMERICACreatinine [Mass/Vol]0.96 mg/dLNormal0.73-1.22[facility] HospitalComment on above:Order Comment: Specimen Type: BLOOD SPECIMEN Ordering Facility: [facility] Address: [address] [place], [place] [address]Performed By: #### 24893-6 #### [facility] CLIA [id number] [address] [place] [address] [place] AMERICACreatinine and Glomerular filtration rate.predicted panel (S/P/Bld)84 mL/min/1.73m???Normal>=60[facility] HospitalComment on above:Order Comment: Specimen Type: BLOOD SPECIMEN Ordering Facility: [facility] Address: [address] [place], [place] [address]Result Comment: Estimated Glomerular Filtration Rate (eGFR) is calculated using the 2020 CKD-EPI cre atinine equation. This equation utilizes serum creatinine, sex, and age as parameters. The creatinine assay has traceable calibration to isotope dilution- mass spectrometry. Refer to KDIGO guidelines for clinical interpretation. In patients with unstable renal function, e.g. those with acute kidney injury, the eGFR may not accurately reflect actual GFR.Performed By: #### 17825-2 #### [facility] CLIA [id number] [address] [place] [address] [place] AMERICAGlucose [Mass/Vol]152 mg/dL Xqcy65-56Aflsdzxfn HospitalComment on above:Order Comment: Specimen Type: BLOOD SPECIMEN Ordering Facility: [facility] Address: [address] [place], [place] [address]Result Comment: The [place] [employer] (ADA) provides [...] 2016, [place] [employer]. Diabetes Care. 2016.39(Suppl 1).Performed By: #### 20799-5 #### [facility] CLIA [id number] [address] [place] [address] [place] AMERICAPotassium [Moles/Vol]4.1 mmol/LNormal3.7-5.1Hillcre HospitalComment on above:Order Comment: Specimen Type: BLOOD SPECIMEN Ordering Facility: [facility] Address: [address] [place], [place] [address]Performed By: #### 00500-5 #### [facility] CLIA [id number] [address] [place] [address] [place] AMERICASodium [Moles/Vol]138 mmol/L Oxqbnd040-359Wvqcqakao HospitalComment on above:Order Comment: Specimen Type: BLOOD SPECIMEN Ordering Facility: [facility] Address: [address] [place], [place] [address]Performed By: #### 97798-6 #### [facility] CLIA [id number] [address] [place] [address] [place] AMERICAUrea nitrogen [Mass/Vol]19 mg/dLNormal9-24Hillcrest HospitalComment on above:Order Comment: Specimen Type: BLOOD SPECIMEN Ordering Facility: [facility] Address: [address] [place], [place] [address]Performed By: #### 98123-8 #### [facility] CLIA [id number] [address] [place] [address] [place] AMERICACBC panel Auto (Bld)on 66-50-8334Jhuruqrcreb distribution width (RBC) [Ratio]14.8 %Okyugy37.5-15.0 [facility] HospitalComment on above:Order Comment: Specimen Type: BLOOD SPECIMEN Ordering Facility: [facility] Address: [address] [place], [place] [address]Performed By: #### 07754-5 #### [facility] CLIA [id number] [address] [place] [address] [place] AMERICAHematocrit (Bld) [Volume fraction]39.2 %Rvjdca67.0-51.0[facility] HospitalComment on above:Order Comment: Specimen Type: BLOOD SPECIMEN Ordering Facility: [facility] Address: [address] [place], [place] [address]Performed By: #### 93221-5 #### [facility] CLIA [id number] [address] [place] [address] [place] AMERICAHemoglobin (Bld) [Mass/Vol] 12.5 g/dLLow13.0-17.0[facility] HospitalComment on above:Order Comment: Specimen Type: BLOOD SPECIMEN Ordering Facility: [facility] Address: [address] [place], [place] [address]Performed By: #### 81278-9 #### [facility] CLIA [id number] [address] [place] [address] [place] AMERICAMCH (RBC) [Entitic mass]29.6 jaYnmozk53.0-34.0[facility] HospitalComment on above:Order Comment: Specimen Type: BLOOD SPECIMEN Ordering Facility: [facility] Address: [address] [place], [place] [address]Performed By: #### 51736-2 #### [facility] CLIA [id number] [address] [place], [place] [address]MCHC (RBC) [Mass/Vol]31.9 g/cOFxfxfc28.5-36.0[facility]st HospitalComment on above:Order Comment: Specimen Type: BLOOD SPECIMEN Ordering Facility: [facility] Address: [address] [place], [place] [address]Performed By: #### 61331-1 #### [facility] [place] [id number] [address] [place], [place] [address]MCV (RBC) [Entitic vol]92.9 xIXiafhp62.0-100.0[facility]st HospitalComment on above:Order Comment: Specimen Type: BLOOD SPECIMEN Ordering Facility: [facility] Address: [address] [place], [place] [address]Performed By: #### 67781-3 #### [facility] [place] [id number] [address] [place] [address] AMERICANucleated RBC (Bld) [#/Vol] 10*3/uLNormal<0.01[facility]st HospitalComment on above:Order Comment: Specimen Type: BLOOD SPECIMEN Ordering Facility: [facility] Address: [address] [place], [place] [address]Performed By: #### 57690-4 #### [facility] [place] [id number] [address] [place] [address] [place] AMERICAPlatelet mean volume (Bld) [Entitic vol]10.3 fLNormal9.0-12.7[facility]st HospitalComment on above:Order Comment: Specimen Type: BLOOD SPECIMEN Ordering Facility: [facility] Address: [address] [place], [place] [address]Performed By: #### 56615-1 #### [facility] CLIA [id number] [address] [place] [address] [place] AMERICAPlatelets (Bld) [#/Vol]218 10*3/iFBiykts270-146Jpikbhhrx HospitalComment on above:Order Comment: Specimen Type: BLOOD SPECIMEN Ordering Facility: [facility] Address: [address] [place], [place] [address]Performed By: #### 52797-1 #### [facility] CLIA [id number] [address]RBC (Bld) [#/Vol]4.22 10*6/uL Normal4.20-6.00[facility] HospitalComment on above:Order Comment: Specimen Type: BLOOD SPECIMEN Ordering Facility: [facility] Address: [address] [place], [place] [address]Performed By: #### 58671-8 #### [facility] [place] [id number] [address] [id number] [facility]W (Bld) [#/Vol]5.29 10*3/uL Normal3.70-11.00[facility] HospitalComment on above:Order Comment: Specimen Type: BLOOD SPECIMEN Ordering Facility: [facility] Address: [address] [place], [place] [address]Performed By: #### 85024-8 #### [facility] IA [id number] [address] [place], [place] [address]CNDS 65-51-4947OJRTNOK ID: [id number] Author: JOSE ANTONIO HOPPER MD Service: Family [...] was drained daily with significantly decreased amount 114-849-376-100 mL. The electrolytes have been replaced daily. [...] for appointment?: Yes Jose Antonio Hopper MD [phone] [address] [place] [address] PCP Requested Referral Additional Provider to Provider Information: No notes on file Treatment Team: Attending Provider: Jose Antonio Hopper MD Consulting: Yehuda Dial MD Transitions of Care Critical Issues: LAB MONITORING NEEDED: BMP,Magnesium on 01/02/2024 SPECIALIST FOLLOW-UP: Dr Dial on 01/06/2024 LABS AND PROCEDURES PENDING AT DISCHARGE: No pending results. FOLLOW-UP APPOINTMENTS ALREADY SCHEDULED WITH A [facility] PROVIDER: Future Appointments Date Time Provider Department Center 01/06/2024 1:15 PM XR [facility] 01/06/2024 2:00 PM Ruma Oshea PA-C [facility] ALLERGIES Allergen Reactions Tramadol Mental Status Change DISCHARGE MEDICATION: Medication List START maryjane (more content not included)...NormalBr[facility] HospitalNURSING PROHol[facility] 41-13-5952SOFOMZM [facility] ID: [id number] Author: ROJAS CLINE RN Service: Nursing Author Type: Registered Nurse Type: Nursing Progress Note Filed: 12/26/2023 18:03 Note Text: Patient given discharge paperwork. All question and concerns addressed. [facility] S[facility]US 3V PA/DAN/LATon 23-68-5771HL SINUS 3V PA/DAN/LAT* * *Final Report* * * DATE OF [...] DO on Dec 27 2023 8:21AM EST [id number] HospitalBasic metabolic 2000 panelon 67-58-6409Pevto gap [Moles/Vol]12 mmol/LNormal8-15[facility] HospitalComment on above:Order Comment: Specimen Type: BLOOD SPECIMEN Ordering Facility: [facility] Address: [address] [place], [place] [address]Performed By: #### MPO #### [facility] CLIA [id number] [address] [place] [address]Xyctyfi [Mass/Vol]9.0 mg/dLNormal8.5-10.2[facility] HospitalComment on above:Order Comment: Specimen Type: BLOOD SPECIMEN Ordering Facility: [facility] Address: [address] [place] [address]Xoieiwvwi By: #### MPO #### [facility] CLIA [id number] [address] [place] [address]Vttjvfnu [Moles/Vol]95 mmol/HBka27-472Brxuvgkru HospitalComment on above:Order Comment: Specimen Type: BLOOD SPECIMEN Ordering Facility: [facility] Address: [address] [place], [place] [address]Performed By: #### MPO #### [facility] CL[facility] [id number] [address] [place] [address]BA5 [Moles/Vol]27 mmol/CDocryf33-36Mipzalyyr HospitalComment on above:Order Comment: Specimen Type: BLOOD SPECIMEN Ordering Facility: [facility] Address: [address] [place], [place] [address]Performed By: #### MPO #### [facility] CLIA [id number] [address] [place] [address]Yokdwyupin [Mass/Vol]1.07 mg/dLNormal0.73-1.22 [facility] HospitalComment on above:Order Comment: Specimen Type: BLOOD SPECIMEN Ordering Facility: [facility] Address: [address] [place], [place] [address]Performed By: #### MPO #### [facility] CLIA [id number] [address] [place] [address]Knuyjvaypq and Glomerular filtration rate.predicted panel (S/P/Bld)74 mL/min/1.73m???Normal>=60[facility] HospitalComment on above: Order Comment: Specimen Type: BLOOD SPECIMEN Ordering Facility: [facility] Address: [address] [place], [place] [address]Result Comment: Estimated Glomerular Filtration Rate (eGFR) is calculated using the 2020 CKD-EPI cre atinine equation. This equation utilizes serum creatinine, sex, and age as parameters. The creatinine assay has traceable calibration to isotope dilution- mass spectrometry. Refer to KDIGO guidelines for clinical interpretation. In patients with unstable renal function, e.g. those with acute kidney injury, the eGFR may not accurately reflect actual GFR.Performed By: #### MPO #### [facility] CLIA [id number] [address] [place] [address] 65[address]Vyfezfg [Mass/Vol]108 mg/cIIqym79-67Qdeartscp HospitalComment on above:Order Comment: Specimen Type: BLOOD SPECIMEN Ordering Facility: [facility] Address: [address] [place], [place] [address]Result Comment: The [place] [employer] (ADA) provides [...] 2016, [place] [employer]. Diabetes Care. 2016.39(Suppl 1).Performed By: #### MPO #### [facility] CLIA [id number] [address] [place] [address]Wmagbwylk [Moles/Vol]3.7 mmol/LNormal3.7-5.1 [facility] HospitalComment on above:Order Comment: Specimen Type: BLOOD SPECIMEN Ordering Facility: [facility] Address: [address] [place], [place] [address]Performed By: #### MPO #### [facility] CLIA [id number] [address] [place] [address]Cjycaj [Moles/Vol]134 mmol/GSrl138-040Bqnpdhqkr HospitalComment on above:Order Comment: Specimen Type: BLOOD SPECIMEN Ordering Facility: [facility] Address: [address] [place], [place] [address]Performed By: #### MPO #### [facility] CLIA [id number] [address] [place] [address] 122[address]Qlmb nitrogen [Mass/Vol]24 mg/dLNormal9-24[facility] HospitalComment on above:Order Comment: Specimen Type: BLOOD SPECIMEN Ordering Facility: [facility] Address: [address] [place], [place] [address]Performed By: #### MPO #### [facility] CLIA [id number] [address] [place] [address]APSJYQEux 03-99-2734FUIQMYPENC ID: [id number] Author: YEHUDA DIAL MD Service: Rheumatology Author [...] underlying condition. The subject is [facility] for anasarca. In the past few weeks [...] Negative for seasonal allergi (more content not included)...Normal [facility] SerPl-mCncon 79-77-7993SSV [Mass/Vol]1.1 mg/dLHigh<0.9 [facility] HospitalComment on above:Order Comment: Specimen Type: BLOOD SPECIMEN Ordering Facility: [facility] Address: [address] [place], [place] [address]Performed By: #### MPO #### [facility] CLIA [id number] [address] [place], [place] [address]ESR Westergren method (Bld) [Velocity]on 12-25-2023 ESR (Bld) [Velocity]28 mm/hHigh0-15[facility] HospitalComment on above:Order Comment: Specimen Type: BLOOD SPECIMEN Ordering Facility: [facility] Address: [address] [place], [place] [address]Performed By: #### 30417-0 #### [facility] CLIA [id number] [address] [place] [address] STATES OF AMERICAIMMUNOFIXATION SCREEN, SERUM on 12-57-3046FBK RESULTNo M protein is identified.NormalNo M protein is identified.[facility] HospitalComment on above:Order Comment: Specimen Type: BLOOD SPECIMENOrdering Facility: [facility] Address:[address] [place], [place] [address]Performed By: #### IFESC ####[facility] LABCLIA [id number] [address] OF AMERICASTAFF REVIEW (MPA)Reviewed by Dr. Trini Mourapercy [facility] HospitalComment on above:Order Comment: Specimen Type: BLOOD SPECIMENOrdering Facility: [facility] Address:[address] [place], [place] [address]Performed By: #### IFESC ####[facility] LABCLIA [id number] [address]MYELOPEROXIDASEon 01-52-4015FRVVMWTAIBYAWGS675 pmol/LNormal<470HiBrooks HospitalComment on above:Order Comment: Specimen Type: BLOOD SPECIMEN Ordering Facility: [facility] Address: [address] [place], [place] [address]Result Comment: Based on a high risk sub-population (N=920) defined [...] analytical performance characteristics have been determined by [facility]. It has not been cleared or approved by the U.S. Food and Drug Administration. This assay has been validated pursuant to the CLIA regulations and is used for clinical purposes. Received Date: [id number] By: #### MPO #### [facility] CLIA [id number] [address] [address] CARDIAC AMYLOID SPECT/CTon 27-89-8662FR CARDIAC AMYLOID SPECT/CT* * *Final Report* * * DATE OF EXAM: Dec 25 2023 3:56PM [facility] 0847 - NM CARDIAC AMYLOID SPECT/CT / PROCEDURE REASON: Cardiac amyloidosis suspected, further testing * * * * Physician Interpretation * * * * RESULT: NM CTAC Report: [facility] Date of service: 12/25/2023 3:18:39 PM CTAC [...] pathologic assessment as appropriate. Nuclear Med Report: [id number] PLANAR and SPECT: Myocardial imaging of the chest with CT attenuation correction was performed at 3 hours post IV injection of Tc-99m Pyrophosphate. See administered doses below. [facility] Date of service: 12/25/2023 3:18:39 PM Ordering [...] MD on Dec 25 2023 4:19PM EST [id number] HospitalPROTEIN ELECTROPHORESIS SERUM (P) on 74-95-9784Uvjzxem [Mass/Vol]3.52 g/dLNormal3.43-5.41[facility] HospitalComment on above:Order Comment: Specimen Type: BLOOD SPECIMEN Ordering Facility: [facility] Address: [address] [place], [place] [address]Performed By: #### [id number] #### [facility] CLIA [id number] [address] [place] [address] [place] AMERICAAlpha 1 globulin Elph [Mass/Vol]0.34 g/dLNormal0.18-0.43[facility] HospitalComment on above:Order Comment: Specimen Type: BLOOD SPECIMEN Ordering Facility: [facility] Address: [address] [place], [place] [address]Performed By: #### [id number] #### [facility] CLIA [id number] [address] [place] [address] [place] AMERICAAlpha 2 globulin Elph [Mass/Vol]0.86 g/dLNormal0.42-0.98[facility] HospitalComment on above:Order Comment: Specimen Type: BLOOD SPECIMEN Ordering Facility: [facility] Address: [address] [place], [place] [address]Performed By: #### [id number] #### [facility] CLIA [id number] [address] [place] [address] [place] AMERICABeta globulin Elph [Mass/Vol]0.91 g/dLNormal0.61-1.17[facility] HospitalComment on above:Order Comment: Specimen Type: BLOOD SPECIMEN Ordering Facility: [facility] Address: [address] [place], [place] [address]Performed By: #### [id number] #### [facility] CLIA [id number] [address] [place] [address] [place] AMERICAGamma globulin Elph [Mass/Vol]0.66 g/dLNormal0.53-1.51[facility] HospitalComment on above:Order Comment: Specimen Type: BLOOD SPECIMEN Ordering Facility: [facility] Address: [address] [place], [place] [address]Performed By: #### [id number] #### [facility] CLIA [id number] [address] [place] [address] [place] OF AMERICAM-PROTEIN LOCATIONNormal [facility] HospitalComment on above:Order Comment: Specimen Type: BLOOD SPECIMEN Ordering Facility: [facility] Address: [address] [place], [place] [address]Result Comment: Not Applicable. Performed By: #### [id number] #### [facility] CLIA [id number] [address] [place] [address] [place] AMERICAProtein Fractions [Interp]No definitive M protein is identified on protein electrophoresis.NormalNo definitive M protein is identified on protein electrophoresis.[facility] Comment on above:Order Comment: Specimen Type: BLOOD SPECIMEN Ordering Facility: [facility] Address: [address] [place], [place] [address]Performed By: #### [id number] #### [facility] CLIA [id number] [address] [place] [address] [place] AMERICAProtein.monoclonal Elph [Mass/Vol]0.00 g/dLNormal<=0.00[facility] HospitalComment on above:Order Comment: Specimen Type: BLOOD SPECIMEN Ordering Facility: [facility] Address: [address] [place], [place] [address]Performed By: #### [id number] #### [facility] CLIA [id number] [address] [place] [address] [place] [facility] STAFF REVIEWReviewed by Dr. Trini Farley [facility] HospitalComment on above:Order Comment: Specimen Type: BLOOD SPECIMEN Ordering Facility: [facility] Address: [address] [place], [place] [address]Performed By: #### [id number] #### [facility] CLIA [id number] [address] [place] [address] [place] OF AMERICAProt SerPl-mCncon 12-25-2023 Protein [Mass/Vol]6.3 g/dLNormal6.3-8.0[facility] HospitalComment on above:Order Comment: Specimen Type: BLOOD SPECIMEN Ordering Facility: [facility] Address: [address] [place], [place] [address]Performed By: #### 1988-5, 53707-9 #### [facility] [place] [id number] [address] [id number] [place] [facility] SerPl-aCncon 12-25-2023 TSH Qn2.300 m[IU]/LNormal0.270-4.200[facility] HospitalComment on above:Order Comment: Specimen Type: BLOOD SPECIMEN Ordering Facility: [facility] Address: [address] [place], [place] [address]Performed By: #### 1988-5, 72478-0 #### [facility] CLIA [id number] [address] [place] [address] [facility] 2000 panelon 57-21-0053Urcaz gap [Moles/Vol]12 mmol/LNormal8-15[facility]st HospitalComment on above:Order Comment: Specimen Type: BLOOD SPECIMEN Ordering Facility: [facility] Address: [address] [place], [place] [address]Performed By: #### MPO #### [facility] CLIA [id number] [address] [place] [address] 90891Mlikdxb [Mass/Vol]9.5 mg/dLNormal8.5-10.2[facility]crest HospitalComment on above:Order Comment: Specimen Type: BLOOD SPECIMEN Ordering Facility: [facility] Address: [address] [place], [place] [address]Performed By: #### MPO #### [facility] CLIA [id number] [address] [place] [address] 93319Pvzhsasc [Moles/Vol]94 mmol/ERho37-741Uiwowlsjc HospitalComment on above:Order Comment: Specimen Type: BLOOD SPECIMEN Ordering Facility: [facility] Address: [address] [place], [place] [address]Performed By: #### MPO #### [facility] CLIA [id number] [address] [place] [address] 68048RT5 [Moles/Vol]28 mmol/JVfxcnl07-37Dbhcxvalh HospitalComment on above:Order Comment: Specimen Type: BLOOD SPECIMEN Ordering Facility: [facility] Address: [address] [place], [place] [address]Performed By: #### MPO #### [facility] CLIA [id number] [address] [place] [address] 20004Wgerombkib [Mass/Vol]1.27 mg/dLHigh0.73-1.22 [facility] HospitalComment on above:Order Comment: Specimen Type: BLOOD SPECIMEN Ordering Facility: [facility] Address: [address] [place] [address] 146[address]Pvkwhgtlm By: #### MPO #### [facility] CLIA [id number] [address] [place] [address] 87371Cmzmkjyick and Glomerular filtration rate.predicted panel (S/P/Bld)60 mL/min/1.73m???Normal>=60HiBrooks HospitalComment on above: Order Comment: Specimen Type: BLOOD SPECIMEN Ordering Facility: [facility] Address: [address] [place] [address] 33037Fdvozv Comment: Estimated Glomerular Filtration Rate (eGFR) is calculated using the 2020 CKD-EPI cre atinine equation. This equation utilizes serum creatinine, sex, and age as parameters. The creatinine assay has traceable calibration to isotope dilution- mass spectrometry. Refer to KDIGO guidelines for clinical interpretation. In patients with unstable renal function, e.g. those with acute kidney injury, the eGFR may not accurately reflect actual GFR.Performed By: #### MPO #### [facility] CLIA [id number] [address] [place] [address] 69452Wzoeaoa [Mass/Vol]134 mg/nPHmxm33-88Gbaifopdz HospitalComment on above:Order Comment: Specimen Type: BLOOD SPECIMEN Ordering Facility: [facility] Address: [address] [place] [address] 37358Xhoxnr Comment: The [place] [employer] (ADA) provides [...] 2016, [place] [employer]. Diabetes Care. 2016.39(Suppl 1).Performed By: #### MPO #### [facility] CLIA [id number] [address] [place] [address] 48915Nkypdsacc [Moles/Vol]3.6 mmol/LLow3.7-5.1[facility]crest HospitalComment on above:Order Comment: Specimen Type: BLOOD SPECIMEN Ordering Facility: [facility] Address: [address] [place], [place] [address]Performed By: #### MPO #### [facility] CLIA [id number] [address] [place] [address] 75559Sjirwk [Moles/Vol]134 mmol/BGpf745-009Peqvjpmeh HospitalComment on above:Order Comment: Specimen Type: BLOOD SPECIMEN Ordering Facility: [facility] Address: [address] [place], [place] [address]Performed By: #### MPO #### [facility] CLIA [id number] [address] [place], [place] [address]Urea nitrogen [Mass/Vol]25 mg/dLHigh9-24[facility]st HospitalComment on above:Order Comment: Specimen Type: BLOOD SPECIMEN Ordering Facility: [facility] Address: [address] [place], [place] [address]Performed By: #### MPO #### [facility] CLIA [id number] [address] [place], [place] [address]Anion gap [Moles/Vol]14 mmol/LNormal8-15[facility]st HospitalComment on above:Order Comment: Specimen Type: BLOOD SPECIMEN Ordering Facility: [facility] Address: [address] [place], [place] [address]Performed By: #### 1987-10, #### [facility] CLIA [id number] [address] [place] [address] [place] AMERICACalcium [Mass/Vol]9.4 mg/dL Normal8.5-10.2[facility]st HospitalComment on above:Order Comment: Specimen Type: BLOOD SPECIMEN Ordering Facility: [facility] Address: [address] [place] [address] 91828Xqxehqogd By: #### 1987-10, #### [facility] CLIA [id number] [address] [place] [address] [place] AMERICAChloride [Moles/Vol]95 mmol/L Pno35-418Twdvjwknl HospitalComment on above:Order Comment: Specimen Type: BLOOD SPECIMEN Ordering Facility: [facility] Address: [address] [place], [place] [address]Performed By: #### 1987-10, #### [facility] CLIA [id number] [address] [place] [address] [place] AMERICACO2 [Moles/Vol]27 mmol/L Raghdx61-90Wjiyghegp HospitalComment on above:Order Comment: Specimen Type: BLOOD SPECIMEN Ordering Facility: [facility] Address: [address] [place], [place] [address]Performed By: #### 1987-10, #### [facility] CLIA [id number] [address] [place] [address] [place] AMERICACreatinine [Mass/Vol]1.34 mg/dLHigh0.73-1.22Hillcre HospitalComment on above:Order Comment: Specimen Type: BLOOD SPECIMEN Ordering Facility: [facility] Address: [address] [place], [place] [address]Performed By: #### 1987-10, #### [facility] CLIA [id number] [address] [place] [address] [place] AMERICACreatinine and Glomerular filtration rate.predicted panel (S/P/Bld)56 mL/min/1.73m???Low>=60[facility] HospitalComment on above:Order Comment: Specimen Type: BLOOD SPECIMEN Ordering Facility: [facility] Address: [address] [place], [place] [address]Result Comment: Estimated Glomerular Filtration Rate (eGFR) is calculated using the 2020 CKD-EPI cre atinine equation. This equation utilizes serum creatinine, sex, and age as parameters. The creatinine assay has traceable calibration to isotope dilution- mass spectrometry. Refer to KDIGO guidelines for clinical interpretation. In patients with unstable renal function, e.g. those with acute kidney injury, the eGFR may not accurately reflect actual GFR.Performed By: #### #### [facility] CLIA [id number] [address] [place] [address] [place] AMERICAGlucose [Mass/Vol]100 mg/dL Rvua68-18Fiuhjcqst HospitalComment on above:Order Comment: Specimen Type: BLOOD SPECIMEN Ordering Facility: [facility] Address: [address] [place], [place] [address]Result Comment: The [place] [employer] (ADA) provides [...] 2016, [place] [employer]. Diabetes Care. 2016.39(Suppl 1).Performed By: #### #### [facility] CLIA [id number] [address] [place] [address] [place] AMERICAPotassium [Moles/Vol]3.6 mmol/LLow3.7-5.1Hbridgewater [facility] hospital HospitalComment on above:Order Comment: Specimen Type: BLOOD SPECIMEN Ordering Facility: [facility] Address: [address] [place], [place] [address]Performed By: #### #### [facility] CLIA [id number] [address] [place] [address] [place] AMERICASodium [Moles/Vol]136 mmol/L Qsplpu704-015Pfnopmpxp HospitalComment on above:Order Comment: Specimen Type: BLOOD SPECIMEN Ordering Facility: [facility] Address: [address] [place], [place] [address]Performed By: #### #### [facility] CLIA [id number] [address] [place] [address] [place] AMERICAUrea nitrogen [Mass/Vol]26 mg/dLHigh9-24[facility] HospitalComment on above:Order Comment: Specimen Type: BLOOD SPECIMEN Ordering Facility: [facility] Address: [address] [place], [place] [address]Performed By: #### 1988-5, 09576-4 #### [facility] IA [id number] [address] [place] [address] [place] AMERICAMagnesium SerPl-mCncon 07-67-0871Exdlrmntc [Mass/Vol]2.2 mg/dLNormal1.7-2.3[facility] HospitalComment on above:Order Comment: Specimen Type: BLOOD SPECIMEN Ordering Facility: [facility] Address: [address] [place], [place] [address]Performed By: #### 1988-5, 39252-3 #### [facility] [id number] [address] [place] [address] PROGon 12-24-2023 NURSING PRONO ID: [id number] Author: SONIYA JO, EVAN Service: ? Author Type: Registered Nurse Type: Nursing Progress Note Filed: 12/24/2023 22:50 Note Text: 1910- Assumed care of pt from outgoing RN, pt seen lying in bed A/O X 3, on RA, no pain or discomfort reported. Safety measures in place and call light within reach. Will continue to monitor.[facility] [place]: [id number] Author: ELIZABETH ROWAN, EVAN Service: Nursing Author Type: Registered Nurse Type: Nursing Progress Note Filed: 12/24/2023 10:54 Note Text: Spoke with Dr Pimentel regarding orders for LR bolus 500ml, and PO lasix 80mg. Instructed to given bolus first, then Lasix an hour after.[facility] [place]: [id number] Author: DWIGHT GLYNN, EVAN Service: Nursing Author Type: Registered Nurse Type: Nursing Progress Note Filed: 12/24/2023 07:56 Note Text: 0200: Spoke with shift engineer ADRIENNE regarding patient BP of 86/59. Pt is asymptomatic and ADRIENNE is not worried about the blood pressure at this time. I was advised to page again if BP goes below 80 or if patient becomes symptomatic. NormalHigardner state hospital HospitalUrate SerPl-mCncon 99-92-4443Zuhmz [Mass/Vol]7.6 mg/dL Normal4.0-8.1Hbridgewater state hospital HospitalComment on above:Order Comment: Specimen Type: BLOOD SPECIMEN Ordering Facility: [facility] Address: [address] [place], [place] [address]Performed By: #### MPO #### [facility] CLIA [id number] [address] [place] [address] 99740FD CHEST 2V FRONTAL/LATon 74-26-2606HR CHEST 2V FRONTAL/LAT* * *Final Report* * * DATE OF [...] MD on Dec 25 2023 7:53AM EST [id number] Hills HospitalBasic metabolic 2000 panelon 97-87-4521Nykua gap [Moles/Vol]17 mmol/LHigh8-15[facility] HospitalComment on above:Order Comment: Specimen Type: BLOOD SPECIMENOrdering Facility: [facility] Address:[address] [place], [place] [address]Performed By: #### 33553-4, 14263-5 ####[facility] [id number] [place] [address] [place] AMERICACalcium [Mass/Vol]9.5 mg/dLNormal8.5-10.2[facility] HospitalComment on above:Order Comment: Specimen Type: BLOOD SPECIMENOrdering Facility: [facility] Address:[address] [place], [place] [address]Performed By: #### 28720-8, 62027-0 ####[facility] [id number] [place] [address] [place] AMERICAChloride [Moles/Vol]97 mmol/VMdp54-726Bunvrxsji HospitalComment on above:Order Comment: Specimen Type: BLOOD SPECIMENOrdering Facility: [facility] Address:[address] [place] [address] Performed By: #### 77964-8, 37488-8 ####[facility] [id number] [place] [address] [place] AMERICACO2 [Moles/Vol] 27 mmol/EIkqycm26-10Vdbkotxhp HospitalComment on above:Order Comment: Specimen Type: BLOOD SPECIMENOrdering Facility: [facility] Address:[address] [place], [place] [address]Performed By: #### 16422-9, 06521-7 ####[facility] [id number] [place] [address] [place] AMERICACreatinine [Mass/Vol]1.14 mg/dLNormal0.73-1.22[facility] HospitalComment on above:Order Comment: Specimen Type: BLOOD SPECIMENOrdering Facility: [facility] Address:[address] [place], [place] [address]Performed By: #### 00638-3, 74694-7 ####[facility] [id number] [place] [address] [place] CINDY Creatinine and Glomerular filtration rate.predicted panel (S/P/Bld)68 mL/min/1.73m???Normal>=60[facility] HospitalComascension borg[facility] on above:Order Comment: Specimen Type: BLOOD SPECIMENOrdering Facility: [facility] Address:[address] [place], [place] [address]Result Comment: Estimated Glomerular Filtration Rate (eGFR) is calculated using the 2020 CKD-EPI creatinine equation. This equation utilizes serum creatinine, sex, and age as parameters. The creatinine assay has traceable calibration to isotope dilution-mass spectrometry. Refer to KDIGO guidelines for clinical interpretation. In patients with unstable renal function, e.g. those with acute kidney injury, the eGFR may not accurately reflect actual GFR.Performed By: #### 43608-9, 04099-5 ####[facility] [id number] [place] [address] [place] AMERICAGlucose [Mass/Vol]113 mg/nMSwxe46-26Thxcgvgty HospitalComment on above:Order Comment: Specimen Type: BLOOD SPECIMENOrdering Facility: [facility] Address:[address] [place] [address] Comment: The [place] [employer] (ADA) provides guidance for cutoff values for fasting glucose and random glucose. The ADA defines fasting as no caloric intake for at least 8 hours. Fasting plasma glucose results between 100 to 125 mg/dL indicate increased risk for diabetes (prediab etes). Fasting plasma glucose results greater than or [...] 2016, [place] [employer]. Diabetes Care. 2016.39(Suppl 1).Performed By: #### 81610-3, 27760-3 ####[facility] [id number] [place] [address] [place] AMERICAPotassium [Moles/Vol]3.8 mmol/LNormal3.7-5.1 [facility] HospitalComment on above:Order Comment: Specimen Type: BLOOD SPECIMENOrdering Facility: [facility] Address:[address] [place], [place] [address]Performed By: #### 93735-2, 95711-4 ####[facility] [id number] [place] [address] [place] AMERICASodium [Moles/Vol]141 mmol/WSstwue199-442Uvznoezdr Hospital Comment on above:Order Comment: Specimen Type: BLOOD SPECIMENOrdering Facility: [facility] Address:[address] [place] [address] Performed By: #### 81371-1, 03172-5 ####[facility] [id number] [place] [address] [place] AMERICAUrea nitrogen [Mass/Vol]15 mg/dLNormal9-24Hbridgewater [facility] hospital HospitalComment on above:Order Comment: Specimen Type: BLOOD SPECIMENOrdering Facility: [facility] Address:[address] [place], [place] [address]Performed By: #### 40254-3, 78145-6 ####[facility] [id number] [place] [address] [place] AMERICAMagnesium SerPl-mCncon 18-19-6821Zthxesapb [Mass/Vol]1.9 mg/dLNormal1.7-2.3Hbridgewater [facility] hospital HospitalComment on above:Order Comment: Specimen Type: BLOOD SPECIMENOrdering Facility: [facility] Address:[address] [place], [place] [address]Performed By: #### 07961- 9, 74741-6 ####[facility] [id number] [place] [address] [place] AMERICABasic metabolic 2000 panelon 18-74-4755Jbfeh gap [Moles/Vol]16 mmol/LHigh8-15[facility] HospitalComment on above:Order Comment: Specimen Type: BLOOD SPECIMEN Ordering Facility: [facility] Address: [address] [place] [id number] By: #### MPO #### [facility] CLIA [id number] [address] [place] [address] 15655Rmdulda [Mass/Vol]9.0 mg/dLNormal8.5-10.2Hbridge[facility] hospital HospitalComment on above:Order Comment: Specimen Type: BLOOD SPECIMEN Ordering Facility: [facility] Address: [address] [place], [place] [address]Performed By: #### MPO #### [facility] CLIA [id number] [address] [place] [address] 69[address]Kefvkite [Moles/Vol]99 mmol/QFutmnd25-152Krnurgtcp HospitalComment on above:Order Comment: Specimen Type: BLOOD SPECIMEN Ordering Facility: [facility] Address: [address] [place], [place] [address]Performed By: #### MPO #### [facility] CLIA [id number] [address] [place] [address] 528[address]VC1 [Moles/Vol]24 mmol/UBvzblu92-96Ckbptvqqh HospitalComment on above:Order Comment: Specimen Type: BLOOD SPECIMEN Ordering Facility: [facility] Address: [address] [place], [place] [address]Performed By: #### MPO #### [facility] CLIA [id number] [address] [place] [address] 54441Epwfqammyx [Mass/Vol]0.98 mg/dLNormal0.73-1.22 [facility] HospitalComment on above:Order Comment: Specimen Type: BLOOD SPECIMEN Ordering Facility: [facility] Address: [address] [place], [place] [address]Performed By: #### MPO #### [facility] CLIA [id number] [address] [place] [address] 80492Zpdqhukmzc and Glomerular filtration rate.predicted panel (S/P/Bld)82 mL/min/1.73m???Normal>=60[facility] HospitalComment on above: Order Comment: Specimen Type: BLOOD SPECIMEN Ordering Facility: [facility] Address: [address] [place] [address]Grunpv Comment: Estimated Glomerular Filtration Rate (eGFR) is calculated using the 2020 CKD-EPI cre atinine equation. This equation utilizes serum creatinine, sex, and age as parameters. The creatinine assay has traceable calibration to isotope dilution- mass spectrometry. Refer to KDIGO guidelines for clinical interpretation. In patients with unstable renal function, e.g. those with acute kidney injury, the eGFR may not accurately reflect actual GFR.Performed By: #### MPO #### [facility] CLIA [id number] [address] [place] [address] 25428Hzxypyc [Mass/Vol]109 mg/qFKane88-53Wsdfkebgi HospitalComment on above:Order Comment: Specimen Type: BLOOD SPECIMEN Ordering Facility: [facility] Address: [address] [place] [address]Lehbpl Comment: The [place] [employer] (ADA) provides [...] 2016, [place] [employer]. Diabetes Care. 2016.39(Suppl 1).Performed By: #### MPO #### [facility] CLIA [id number] [address] [place] [address] 69492Arhruxhaa [Moles/Vol]3.3 mmol/LLow3.7-5.1Hbridgewater [facility] hospital HospitalComment on above:Order Comment: Specimen Type: BLOOD SPECIMEN Ordering Facility: [facility] Address: [address] [place] [address] 80[address]Grmkhgxzc By: #### MPO #### [facility] CLIA [id number] [address] [place] [address] 607[address]Baiyai [Moles/Vol]139 mmol/KOnzaaz734-210Tqvzalpjs HospitalComment on above:Order Comment: Specimen Type: BLOOD SPECIMEN Ordering Facility: [facility] Address: [address] [place], [place] [address]Lamhrpuzo By: #### MPO #### [facility] CLIA [id number] [address] [place] [address] 34383Wkas nitrogen [Mass/Vol]12 mg/dLNormal9-24Hbridgewater [facility] hospital HospitalComment on above:Order Comment: Specimen Type: BLOOD SPECIMEN Ordering Facility: [facility] Address: [address] [place] [address] 90[address]Httsqmbwp By: #### MPO #### [facility] CLIA [id number] [address] [place] [address] 79[address]HOL panel Auto (Bld)on 43-66-2177Hsipxmclffn distribution width (RBC) [Ratio]15.3 %High11.5-15.0[facility] HospitalComment on above:Order Comment: Specimen Type: BLOOD SPECIMEN Ordering Facility: [facility] Address: [address] [place] [address] 55069Ngejjmuuw By: #### MPO #### [facility] CLIA [id number] [address] [place] [address] 05970Ddrkzqffss (Bld) [Volume fraction]39.3 %Normal 39.0-51.0[facility] HospitalComment on above:Order Comment: Specimen Type: BLOOD SPECIMEN Ordering Facility: [facility] Address: [address] [place] [address] 73[address]Efjlutubw By: #### MPO #### [facility] CLIA [id number] [address] [place] [address] 42745Dqkklaycet (Bld) [Mass/Vol]12.7 g/dLLow13.0-17.0 [facility] HospitalComment on above:Order Comment: Specimen Type: BLOOD SPECIMEN Ordering Facility: [facility] Address: [address] [place], [place] [address]Glpwhzzvv By: #### MPO #### [facility] CLIA [id number] [address] [place] [address] 04267VAF (RBC) [Entitic mass]29.6 anIdvvgz85.0-34.0 [facility] HospitalComment on above:Order Comment: Specimen Type: BLOOD SPECIMEN Ordering Facility: [facility] Address: [address] [place] [id number] By: #### MPO #### [facility] CLIA [id number] [address] [place] [address] 00521NCJA (RBC) [Mass/Vol]32.3 g/fPNdwojy79.5-36.0 [facility] HospitalComment on above:Order Comment: Specimen Type: BLOOD SPECIMEN Ordering Facility: [facility] Address: [address] [place], [place] [address]Performed By: #### MPO #### [id number] [address] [place] [address] 92861FTY (RBC) [Entitic vol]91.6 qCYdhvfc40.0-100.0 [facility] HospitalComment on above:Order Comment: Specimen Type: BLOOD SPECIMEN Ordering Facility: [facility] Address: [address] [place], [place] [address]Performed By: #### MPO #### [facility] CLIA [id number] [address] [place] [address] 55646Tpoxpukme RBC (Bld) [#/Vol]10*3/uLNormal<0.01 [facility] HospitalComment on above:Order Comment: Specimen Type: BLOOD SPECIMEN Ordering Facility: [facility] Address: [address] [place] [id number] By: #### MPO #### [facility] CLIA [id number] [address] [place] [address] 60[address]Elulbruc mean volume (Bld) [Entitic vol]10.2 fL Normal9.0-12.7H[facility] HospitalComment on above:Order Comment: Specimen Type: BLOOD SPECIMEN Ordering Facility: [facility] Address: [facility] [place], [place] [address]Performed By: #### MPO #### [facility] CLIA [id number] [address] [place] [address] 72110Kbkxsebcy (Bld) [#/Vol]250 10*3/hYWfcifv812-426 [facility] HospitalComment on above:Order Comment: Specimen Type: BLOOD SPECIMEN Ordering Facility: [facility] Address: [address] [place], [place] [address]Performed By: #### MPO #### [facility] CLIA [id number] [address] [place] [address] 19538RKT (Bld) [#/Vol]4.29 10*6/uLNormal4.20-6.00 [facility] HospitalComment on above:Order Comment: Specimen Type: BLOOD SPECIMEN Ordering Facility: [facility] Address: [address] [place], [place] [address]Performed By: #### MPO #### [facility] CLIA [id number] [address] [place] [address] 72646JJJ (Bld) [#/Vol]5.83 10*3/uLNormal3.70-11.00 [facility] HospitalComment on above:Order Comment: Specimen Type: BLOOD SPECIMEN Ordering Facility: [facility] Address: [address] [place], [place] [address]Performed By: #### MPO #### [facility] CLIA [id number] [address] [place] [address] 14323UNKERNT PROGon 04-90-9817IOPTIVK PRONO ID: [id number] Author: TITA LANDRY APRN.[employer] Service: Thoracic Surgery Author Type: Nurse Practitioner Type: Consult Progress Note Filed: 12/22/2023 12:57 Note Text: [facility] THORACIC SURGERY CONSULT PROGRESS NOTE Sav Raymundo [id number] PRIMARY SERVICE: Internal Medicine HOSPITAL DAY: # [...] pneumothorax. Dictated by: HOLLIS BANEGAS MD RUQ 12/21/2023: Pending ASSESSMENT Sav Raymundo is a 73 y/o male referred by Alpa Oliva CNP for an opinion regarding management of recurrent right pleural effusion. 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 Remigio Landry APRN.[employer] Pager [phone] 12/22/2023 12:17 PMNormalHillcrest HospitalMagnesium SerPl-mCncon 96-85-6447Rmkxknfbq [Mass/Vol]1.6 mg/dLLow1.7-2.3Hillcrest HospitalComment on above:Order Comment: Specimen Type: BLOOD SPECIMEN Ordering Facility: [facility] Address: [facility] [place], [place] [address]Qzoxpuehj By: #### MPO #### [facility] CLIA [id number] [address] [place] [address]297NN ABDOMEN 1V SUPINEon 40-43-7309EB ABDOMEN 1V SUPINE* * *Final Report* * * DATE OF [...] MD on Dec 23 2023 12:20AM EST [id number] And [facility]25([place])D3 [facility] 12-21-2023 25-hydroxyvitamin D3 [Mass/Vol]37.2 ng/xWKflqwe62.0-80.0[facility] Comment on above:Order Comment: Specimen Type: BLOOD SPECIMEN Ordering Facility: [facility] Address: [address] [place], [place] [address]Performed By: #### 51229-4 #### [facility] CLIA [id number] [address] [place] [address] 12-21-2023 [facility] HEALTHHNO ID: [id number] Author: ROSIE STRINGER RT(R) Service: Radiology Author Type: Metals Analyst Type: Allied Health Filed: 12/21/2023 18:11 Note [...] PATIENT PRESENTS WITH AN IMPLANTABLE OR ATTACHED DRY CHAIN PULLER: No RADIOLOGY DEPARTMENT: Ultrasound PERIPHERAL IV DATA: Not applicable SIGNED BY: Rosie Stringer RT(R) December 21, 2023 6:11 PMNormalHiBurbank Hospital panel Auto (Bld)on 12-21-2023 Erythrocyte distribution width (RBC) [Ratio]15.3 %High11.5-15.0[facility] HospitalComment on above:Order Comment: Specimen Type: BLOOD SPECIMEN Ordering Facility: [facility] Address: [address] [place], [place] [address]Performed By: #### 23861-0 #### [facility] CLIA [id number] [address] [place] [address] [place] OF AMERICAHematocrit (Bld) [Volume fraction]36.3 %Low39.0-51.0[facility] HospitalComment on above:Order Comment: Specimen Type: BLOOD SPECIMEN Ordering Facility: [facility] Address: [address] [place], [place] [address]Performed By: #### 55374-5 #### [facility] CLIA [id number] [address] [place] [address] [place] AMERICAHemoglobin (Bld) [Mass/Vol] 11.8 g/dLLow13.0-17.0[facility] HospitalComment on above:Order Comment: Specimen Type: BLOOD SPECIMEN Ordering Facility: [facility] Address: [address] [place], [place] [address]Performed By: #### 88590-8 #### [facility] CLIA [id number] [address] [place] [address] [place] AMERICAMCH (RBC) [Entitic mass]29.8 akGixgmd03.0-34.0[facility] HospitalComment on above:Order Comment: Specimen Type: BLOOD SPECIMEN Ordering Facility: [facility] Address: [address] [place], [place] [address]Performed By: #### 32358-4 #### [facility] CLIA [id number] [address] [place], [place] [address]MCHC (RBC) [Mass/Vol]32.5 g/nDJckuiq91.5-36.0[facility]crest HospitalComment on above:Order Comment: Specimen Type: BLOOD SPECIMEN Ordering Facility: [facility] Address: [address] [place], [place] [address]Performed By: #### 23552-1 #### [facility] CLIA [id number] [address] [place], [place] [address]MCV (RBC) [Entitic vol]91.7 qJLyqzmt35.0-100.0[facility]st HospitalComment on above:Order Comment: Specimen Type: BLOOD SPECIMEN Ordering Facility: [facility] Address: [address] [place], [place] [address]Performed By: #### 70615-1 #### [facility] CLIA [id number] [address] [place], [place] [address]ucleated RBC (Bld) [#/Vol] 10*3/uLNormal<0.01[facility]st HospitalComment on above:Order Comment: Specimen Type: BLOOD SPECIMEN Ordering Facility: [facility] Address: [address] [place], [place] [address]Performed By: #### 81525-2 #### [facility] CLIA [id number] [address] [place] [address] [place] [facility] HOSPITALPlatelet mean volume (Bld) [Entitic vol]10.0 fLNormal9.0-12.7Hillcrest HospitalComment on above:Order Comment: Specimen Type: BLOOD SPECIMEN Ordering Facility: [facility] Address: [address] [place], [place] [address]Performed By: #### 54146-1 #### [facility] CLIA [id number] [address] [place] [address] [place] AMERICAPlatelets (Bld) [#/Vol]215 10*3/tJGsiuqp780-153Xpymsquvc HospitalComment on above:Order Comment: Specimen Type: BLOOD SPECIMEN Ordering Facility: [facility] Address: [address] [place], [place] [address]Performed By: #### 66256-3 #### [facility] CLIA [id number] [address] [place], [place] [address]RB (Bld) [#/Vol]3.96 10*6/uLLow4.20-6.00[facility] HospitalComment on above:Order Comment: Specimen Type: BLOOD SPECIMEN Ordering Facility: [facility] Address: [address] [place], [place] [address]Performed By: #### 89876-0 #### [facility] IA [id number] [address] [place], [place] [address]WBC (Bld) [#/Vol]6.12 10*3/uLNormal3.70-11.00[facility] HospitalComment on above:Order Comment: Specimen Type: BLOOD SPECIMEN Ordering Facility: [facility] Address: [address] [place], [place] [address]Performed By: #### 86795-0 #### [facility] IA [id number] [address] [place] [address] AMERICACONSULTon [id number] HNO ID: [id number] Author: RONALDO FLOOD MD, PhD Service: Thoracic Surgery Author Type: Physician Type: Consults Filed: 12/22/2023 10:17 Note Text: [facility] CONSULT NOTE Sav Raymundo [id number] Requesting Provider: Alpa Oliva CNP Cardiothoracic Physician: Ronaldo Flood MD Admit Date: 12/20/2023 LOS : 1 Chief Complaint: Recurrent Effusion HPI: Sav Raymundo is a 73 y/o male referred by Alpa Oliva CNP for an opinion regarding management of recurrent right pleural effusion. 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, right Pleurx catheter insertion [...] reviewed: No additional systems (more content not included)...NormalHillcreMemorial Health Systemncon 14-07-7126DIV [Mass/Vol]1.8 mg/dLHigh<0.9[facility]st HospitalComment on above:Order Comment: Specimen Type: BLOOD SPECIMEN Ordering Facility: [facility] Address: [address] [place], [place] [address]Performed By: #### 1987-10, #### [facility] CLIA [id number] [address] [place] [address] [place] AMERICAComprehensive metabolic 2000 panelon 07-85-2063Nofidey [Mass/Vol]3.4 g/dLLow3.9-4.9[facility]st HospitalComment on above:Order Comment: Specimen Type: BLOOD SPECIMEN Ordering Facility: [facility] Address: [address] [place], [place] [address]Performed By: #### 1987-10, #### [facility] CLIA [id number] [address] [place] [address] [place] AMERICAALP [Catalytic activity/Vol] 100 U/EGiviad01-776Gyhvxmmdu HospitalComment on above:Order Comment: Specimen Type: BLOOD SPECIMEN Ordering Facility: [facility] Address: [address] [place], [place] [address]Performed By: #### 1987-10, #### [facility] CLIA [id number] [address] [place] [address] [place] AMERICAALT [Catalytic activity/Vol] 11 U/HOsblby44-36Mpyxhsknr HospitalComment on above:Order Comment: Specimen Type: BLOOD SPECIMEN Ordering Facility: [facility] Address: [address] [place], [place] [address]Performed By: #### 1987-10, #### [facility] CLIA [id number] [address] [place] [address] [place] AMERICAAnion gap [Moles/Vol]13 mmol/LNormal8-15[facility]st HospitalComment on above:Order Comment: Specimen Type: BLOOD SPECIMEN Ordering Facility: [facility] Address: [address] [place], [place] [address]Performed By: #### #### [facility] CLIA [id number] [address] [place] [address] [place] AMERICAAST [Catalytic activity/Vol] 18 U/SQxkafs73-93Meaqkybwq HospitalComment on above:Order Comment: Specimen Type: BLOOD SPECIMEN Ordering Facility: [facility] Address: [address] [place], [place] [address]Performed By: #### #### [facility] CLIA [id number] [address] [place] [address] [place] AMERICABilirubin [Mass/Vol]0.8 mg/dL Normal0.2-1.3Hillcre HospitalComment on above:Order Comment: Specimen Type: BLOOD SPECIMEN Ordering Facility: [facility] Address: [address] [place], [place] [address]Performed By: #### #### [facility] CLIA [id number] [address] [place] [address] [place] AMERICACalcium [Mass/Vol]8.7 mg/dL Normal8.5-10.2Hillcre HospitalComment on above:Order Comment: Specimen Type: BLOOD SPECIMEN Ordering Facility: [facility] Address: [address] [place], [place] [address]Performed By: #### #### [facility] CLIA [id number] [address] [place] [address] [place] AMERICAChloride [Moles/Vol]106 mmol/GQhhein59-425Piprjfcvw HospitalComment on above:Order Comment: Specimen Type: BLOOD SPECIMEN Ordering Facility: [facility] Address: [address] [place], [place] [address]Performed By: #### #### [facility] CLIA [id number] [address] [place] [address] [place] AMERICACO2 [Moles/Vol]19 mmol/LLow 22-30Hillcre HospitalComment on above:Order Comment: Specimen Type: BLOOD SPECIMEN Ordering Facility: [facility] Address: [address] [place], [place] [address]Performed By: #### 1987-10, #### [facility] CLIA [id number] [address] [place] [address] [place] AMERICACreatinine [Mass/Vol]0.86 mg/dLNormal0.73-1.22[facility] HospitalComment on above:Order Comment: Specimen Type: BLOOD SPECIMEN Ordering Facility: [facility] Address: [address] [place], [place] [address]Performed By: #### #### [facility] IA [id number] [address] [place] [address] [place] AMERICACreatinine and Glomerular filtration rate.predicted panel (S/P/Bld)92 mL/min/1.73m???Normal>=60[facility] HospitalComment on above:Order Comment: Specimen Type: BLOOD SPECIMEN Ordering Facility: [facility] Address: [address] [place], [place] [address]Result Comment: Estimated Glomerular Filtration Rate (eGFR) is calculated using the 2020 CKD-EPI cre atinine equation. This equation utilizes serum creatinine, sex, and age as parameters. The creatinine assay has traceable calibration to isotope dilution- mass spectrometry. Refer to KDIGO guidelines for clinical interpretation. In patients with unstable renal function, e.g. those with acute kidney injury, the eGFR may not accurately reflect actual GFR.Performed By: #### 1987-10, #### [facility] CLIA [id number] [address] [place] [address] [place] AMERICAGlucose [Mass/Vol]115 mg/dL Huxa47-23Fwenqbzpj HospitalComment on above:Order Comment: Specimen Type: BLOOD SPECIMEN Ordering Facility: [facility] Address: [address] [place], [place] [address]Result Comment: The [place] [employer] (ADA) provides [...] 2016, [place] [employer]. Diabetes Care. 2016.39(Suppl 1).Performed By: #### #### [facility] CLIA [id number] [address] [place] [address] [place] AMERICAPotassium [Moles/Vol]3.9 mmol/LNormal3.7-5.1Hbridgewater state hospital HospitalComment on above:Order Comment: Specimen Type: BLOOD SPECIMEN Ordering Facility: [facility] Address: [address] [place], [place] [address]Performed By: #### #### [facility] CLIA [id number] [address] [place] [address] [place] AMERICAProtein [Mass/Vol]6.4 g/dL Normal6.3-8.0[facility] HospitalComment on above:Order Comment: Specimen Type: BLOOD SPECIMEN Ordering Facility: [facility] Address: [address] [place], [place] [address]Performed By: #### #### [facility] CLIA [id number] [address] [place] [address] [place] AMERICASodium [Moles/Vol]138 mmol/L Ecodad940-161Soojjaskk HospitalComment on above:Order Comment: Specimen Type: BLOOD SPECIMEN Ordering Facility: [facility] Address: [address] [place], [place] [address]Performed By: #### #### [facility] CLIA [id number] [address] [place] [address] [place] AMERICAUrea nitrogen [Mass/Vol]12 mg/dLNormal9-24Hillcre HospitalComment on above:Order Comment: Specimen Type: BLOOD SPECIMEN Ordering Facility: [facility] Address: [address] [place], [place] [address]Performed By: #### 1988-5, 76661-9 #### [facility] CLIA [id number] [address] [place] [address] [place] AMERICACyclic citrullinated peptide IgG Qnon 39-21-1901DXP ANTIBODY IGG QUALITATIVENegativeNormalNegativeHillrehabilitation hospital of southern [facility] [place] HospitalComment on above:Order Comment: Specimen Type: BLOOD SPECIMEN Ordering Facility: [facility] Address: [address] [place], [place] [address]Performed By: #### 52132-6 #### [facility] CLIA [id number] [address] [place] [address] [place] [address] [place] AMERICAESR Westergren method (Bld) [Velocity]on 33-59-7659GJO (Bld) [Velocity]33 mm/hHigh0-15[facility] Comment on above:Order Comment: Specimen Type: BLOOD SPECIMEN Ordering Facility: [facility] Address: [address] [place], [place] [address]Performed By: #### MPO #### [facility] CLIA [id number] [address] [place], [place] [address]HISTORY PHYSICALon 43-51-5781WIVHGZW PHYSICALHNO ID: [id number] Author: JOSE ANTONIO HOPPER MD Service: Family [...] not on file) Recurrent (more content not included)...NormalHillcrest HospitalNuclear Ab IA Ql (S)on 32-89-2168UBE SCR QUALNegativeNormalNegativeHillcrest HospitalComment on above:Order Comment: Specimen Type: BLOOD SPECIMEN Ordering Facility: [facility] Address: [address] [place], [place] [address]Result Comment: The qualitative antinuclear antibody screen test performed using the following antigens: dsDNA, Chromatin, Ribosomal P, SS-A 60, SS-A 52, SS-B, Sm, SmRNP, RESIDENTIAL DOOR UNIT INSTALLER A, RESIDENTIAL DOOR UNIT INSTALLER 68, Scl- 70, Alice-1,and Centromere B. Methodology: Multiplex flow immunoassay.Performed By: #### 54274-4 #### [facility] CLIA [id number] [address] [place] [address] [place] AMERICAPROTEINASE 3 ANTIBODYon 65-67-3865Eqqopivvnw 3 Ab Qn (S)<0.2Normal<1.0[facility] HospitalComment on above:Order Comment: Specimen Type: BLOOD SPECIMEN Ordering Facility: [facility] Address: [address] [place], [place] [address]Performed By: #### 67283-3 #### [facility] IA [id number] [address] [place] [address] [place] AMERICARheumatoid fact SerPl-aCncon 58-05-8120Rgjagbrfba factor Qn[IU]/mLNormal<16[facility]st HospitalComment on above:Order Comment: Specimen Type: BLOOD SPECIMEN Ordering Facility: [facility] Address: [address] [place], [place] [address]Performed By: #### 25078-4 #### [facility] CLIA [id number] [address] [place] [address] [place] AMERICAUS ABD RIGHT UPPER QUADRANT on 42-61-7686ZH ABD RIGHT UPPER QUADRANT* * *Final Report* * * DATE OF [...] FERMIN MD on Dec 22 2023 3:17PM [facility] [id number] [facility] Chest PA and Lateralon 68-57-0788XCWXDUFGRU: Stable exam with a persistent right pleural effusion. Transcribed Using Voice Recognition Transcribe Date/Time: Dec 21 2023 10:02A Dictated by: JEFFREY KRUEGER MD This examination was interpreted and the report reviewed and electronically signed by: JEFFREY KRUEGER MD on Dec 21 2023 10:03AM [facility] RAD[facility]* * *Final Report* * * DATE OF [...] cardiomediastinal silhouette. Bones and soft tissues: Unremarkable. [facility] RADIOLOGYProvider, [facility] [place] - 12/21/2023 * * *Final Report* * [...] MD on Dec 21 2023 10:03AM EST [facility] PA and LateralOrdered By: Cc Provider on 12-21-2023 [facility] CentercCP IgG SerPl-aCncon 76-28-1297Misxyo citrullinated peptide IgG Qn<15Normal<20[facility]st HospitalComment on above:Order Comment: Specimen Type: BLOOD SPECIMEN Ordering Facility: [facility] Address: [address] [place], [place] [address]Performed By: #### 61125-9 #### [facility] CLIA [id number] [address] [place] [address] 12-20-2023 ALLIED HEALTHHNO ID: [id number] Author: AMNA MASSEY RT(R) Service: ? Author [...] PATIENT PRESENTS WITH AN IMPLANTABLE OR ATTACHED DRY CHAIN PULLER: No ALLERGIES: Reviewed and unchanged CONTRAST ALLERGY: [...] PERIPHERAL IV DATA: Inpatient - refer to [facility] documentation RADIOLOGY DEPARTMENT: CT; Exam(s) Completed: Abdomen/Pelvis SIGNATURE: RT Arely(R) PATIENT NAME: Sav Raymundo DATE: December 20, 2023 TIME: 5:06 [facility]: [id number] Author: OBI HAAS Tech Service: Radiology Author Type: Ingot Buggy Operator Type: [facility] Filed: 12/20/2023 15:12 Note Text: Radiology [...] PATIENT PRESENTS WITH AN IMPLANTABLE OR ATTACHED DRY CHAIN PULLER: No RADIOLOGY DEPARTMENT: General X-ray: Exam(s) Completed: Chest X-Ray PERIPHERAL IV DATA: Not applicable SIGNED BY: Levy Castanon December 20, 2023 3:12 PMNormalTobey Hospital W Auto Differential panel (Bld) on 20-89-6030Egyugscrl (Bld) [#/Vol]0.05 10*3/uLNormal<0.11[facility] Comment on above:Order Comment: Specimen Type: BLOOD SPECIMEN Ordering Facility: [facility] Address: [address] [place], [place] [address]Performed By: #### MPO #### [facility] CLIA [id number] [address] [place], [place] [address]Basophils/100 WBC (Bld)0.7 %[facility] Comment on above:Order Comment: Specimen Type: BLOOD SPECIMEN Ordering Facility: [facility] Address: [address] [place], [place] [address]Performed By: #### MPO #### [facility] CLIA [id number] [address] [place] [address]Jnnoeohpocjl cell count method Nom (Bld)AutoNormal [facility] HospitalComment on above:Order Comment: Specimen Type: BLOOD SPECIMEN Ordering Facility: [facility] Address: [address] [place], [place] [address]Performed By: #### MPO #### [facility] CLIA [id number] [address] [place], [place] [address]Eosinophils (Bld) [#/Vol]0.20 10*3/uLNormal<0.46 [facility] HospitalComment on above:Order Comment: Specimen Type: BLOOD SPECIMEN Ordering Facility: [facility] Address: [address] [place], [place] [address]Performed By: #### MPO #### [facility] CLIA [id number] [address] [place] [address]277Bqvtaqluwme/100 WBC (Bld)2.9 %NormalHigardner state hospital HospitalComment on above:Order Comment: Specimen Type: BLOOD SPECIMEN Ordering Facility: [facility] Address: [address] [place], [place] [address]Performed By: #### MPO #### [facility] CLIA [id number] [address] [place] [address] 59[address]Hqpsaesfkbl distribution width (RBC) [Ratio]15.3 % High11.5-15.0[facility] HospitalComment on above:Order Comment: Specimen Type: BLOOD SPECIMEN Ordering Facility: [facility] Address: [address] [place], [place] [address]Performed By: #### MPO #### [facility] CLIA [id number] [address] [place] [address]Feqqzgybek (Bld) [Volume fraction]39.8 %Normal 39.0-51.0[facility] HospitalComment on above:Order Comment: Specimen Type: BLOOD SPECIMEN Ordering Facility: [facility] Address: [address] [place], [place] [address]Performed By: #### MPO #### [facility] CLIA [id number] [address] [place] [address] 6[address]Ccsbvoijou (Bld) [Mass/Vol]12.7 g/dLLow13.0-17.0 [facility] HospitalComment on above:Order Comment: Specimen Type: BLOOD SPECIMEN Ordering Facility: [facility] Address: [address] [place], [place] [address]Performed By: #### MPO #### [facility] CLIA [id number] [address] [place] [address]Boklmffc granulocytes (Bld) [#/Vol]0.05 10*3/uL Normal<0.10[facility] HospitalComment on above:Order Comment: Specimen Type: BLOOD SPECIMEN Ordering Facility: [facility] Address: [address] [place], [place] [address]Performed By: #### MPO #### [facility] CLIA [id number] [address] [place] [address] 43[address]Eiutjfnv granulocytes/100 WBC (Bld)0.7 %Normal [facility] HospitalComment on above:Order Comment: Specimen Type: BLOOD SPECIMEN Ordering Facility: [facility] Address: [address] [place], [place] [address]Performed By: #### MPO #### [facility] CLIA [id number] [address] [place] [address] 33203Zmamuxwqhyl (Bld) [#/Vol]1.26 10*3/uLNormal1.00-4.00 [facility] HospitalComment on above:Order Comment: Specimen Type: BLOOD SPECIMEN Ordering Facility: [facility] Address: [address] [place], [place] [address]Performed By: #### MPO #### [facility] CLIA [id number] [address] [place] [address] 30312Puszqjolviq/100 WBC (Bld)18.0 %NormalArbury Hills HospitalComment on above:Order Comment: Specimen Type: BLOOD SPECIMEN Ordering Facility: [facility] Address: [address] [place], [place] [address]Performed By: #### MPO #### [facility] CLIA [id number] [address] [place] [address]59[address]FKW (RBC) [Entitic mass]29.9 pdCffzgy62.0-34.0 [facility] HospitalComment on above:Order Comment: Specimen Type: BLOOD SPECIMEN Ordering Facility: [facility] Address: [address] [place], [place] [address]Performed By: #### MPO #### [facility] CLIA [id number] [address] [place] [address]JYOQ (RBC) [Mass/Vol]31.9 g/rOZvtffy02.5-36.0 [facility] HospitalComment on above:Order Comment: Specimen Type: BLOOD SPECIMEN Ordering Facility: [facility] Address: [facility] [place], [place] [address]Performed By: #### MPO #### [facility] [facility] CLIA [id number] [address] [place] [address] 17343FIS (RBC) [Entitic vol]93.6 iMIndxrv95.0-100.0 [facility] HospitalComment on above:Order Comment: Specimen Type: BLOOD SPECIMEN Ordering Facility: [facility] Address: [address] [place], [place] [address]Performed By: #### MPO #### [facility] CLIA [id number] [address] [place] [address] 05099Sotvszddq (Bld) [#/Vol]0.66 10*3/uLNormal<0.87 [facility] HospitalComment on above:Order Comment: Specimen Type: BLOOD SPECIMEN Ordering Facility: [facility] Address: [address] [place], [place] [address]Performed By: #### MPO #### [facility] CLIA [id number] [address] [place] [address] 13792Uwdjvpxbp/100 WBC (Bld)9.4 %[facility] Comment on above:Order Comment: Specimen Type: BLOOD SPECIMEN Ordering Facility: [facility] Address: [address] [place], [place] [address]Performed By: #### MPO #### [facility] CLIA [id number] [address] [place] [address] 98707Dmpicroaura (Bld) [#/Vol]4.78 10*3/uLNormal1.45-7.50 [facility] HospitalComment on above:Order Comment: Specimen Type: BLOOD SPECIMEN Ordering Facility: [facility] Address: [address] [place], [place] [address]Performed By: #### MPO #### [facility] CL[facility] [id number] [address] [place] [address] 91252Xancmfdnlkt/100 WBC (Bld)68.3 %NormalArbury Hills HospitalComment on above:Order Comment: Specimen Type: BLOOD SPECIMEN Ordering Facility: [facility] Address: [address] [place] [id number] By: #### MPO #### [facility] CLIA [id number] [address] [place] [address] 27993Tteugfqeg RBC (Bld) [#/Vol]10*3/uLNormal<0.01 [facility] HospitalComment on above:Order Comment: Specimen Type: BLOOD SPECIMEN Ordering Facility: [facility] Address: [address] [place], [place] [address]Performed By: #### MPO #### [facility] CLIA [id number] [address] [place] [address] 03254Xdrounqon RBC/100 WBC (Bld) [Ratio]0.0 /100 WBC NormalArbury Hills HospitalComment on above:Order Comment: Specimen Type: BLOOD SPECIMEN Ordering Facility: [facility] Address: [address] [place], [place] [address]Performed By: #### MPO #### [facility] CLIA [id number] [address] [place] [address] 69978Cgwbrjoz mean volume (Bld) [Entitic vol]10.1 fL Normal9.0-12.7Hbridgewater [facility] hospital HospitalComment on above:Order Comment: Specimen Type: BLOOD SPECIMEN Ordering Facility: [facility] Address: [address] [place], [place] [address]Performed By: #### MPO #### [facility] CLIA [id number] [address] [place] [address] 35940Tgtfvwdlf (Bld) [#/Vol]229 10*3/fKKrktjf318-345 [facility] HospitalComment on above:Order Comment: Specimen Type: BLOOD SPECIMEN Ordering Facility: [facility] Address: [address] [place], [place] [address]Performed By: #### MPO #### [facility] CLIA [id number] [address] [place] [address] 24136BBV (Bld) [#/Vol]4.25 10*6/uLNormal4.20-6.00 [facility] on above:Order Comment: Specimen Type: BLOOD SPECIMEN Ordering Facility: [facility] Address: [address] [place] [address] 87010Oaxydvtad By: #### MPO #### [facility] CLIA [id number] [address] [place] [address] 22937QJY (Bld) [#/Vol]7.00 10*3/uLNormal3.70-11.00 [facility] HospitalComascension borg[facility] on above:Order Comment: Specimen Type: BLOOD SPECIMEN Ordering Facility: [facility] Address: [address] [place] [address] 64221Uhzzfmckl By: #### MPO #### [facility] CLIA [id number] [address] [place] [address] 66904KUFNtg 66-00-1598LXJJUewwkt Visit (BERNARD) SAV RAYMUNDO ([id number]) 1950 M Date Time Provider Department 12/20/23 2:00 PM TITA LANDRY During your visit today, we recorded the following information about you: Temperature Respiration Weight Height 97.3 degrees 18/minute 104.8 kg 1.829 m Tita Landry APRN.CNP 01/19/2024 9:56 PM Signed [facility] [place] DEPARTMENT OF THORACIC SURGERY OUTPATIENT VISIT DATE December 20, 2023 OUTPATIENT VISIT TYPE ESTABLISHED PT NAME: Sav Raymundo [facility] NO: [id number] THORACIC SURGEON: Ronaldo Flood M.D. 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 Right pleura, biopsy: - Chronic pleuritis with mesothelial hyperplasia (see comment). B. Right pleura, biopsy: - Acute organizing and chronic pleuritis (see comment). [place]/ 11/22/2023 Diagnosis Comment A. The biopsy contains [...] reactive proliferation. [facility] Della [facility]ramanian [facility] [...] ever since surgery. Note (more content not included)...[facility] ABD/PEL W IVCONon 87-17-7167KA ABD/PEL W IVCON* * *Final Report* * * DATE OF [...] MD on Dec 20 2023 5:40PM EST [id number] HospitalMer[facility] 12-20-2023 Cholesterol [Mass/Vol]106 mg/dLNormal<200[facility] HospitalComment on above: Order Comment: Specimen Type: BLOOD SPECIMEN Ordering Facility: [facility] Address: [address] [place] [address] [place] [address]Result Comment: <200 mg/dL, Desirable 200-239 mg/dL, Borderline high >239 mg/dL, High Reference: 1. National Cholesterol Education Program ATP III Guideline At-A-Glance Quick Desk Reference: National Heart, Lung, and Blood [place]. National Institutes of Health. 2001: NIH Publication No. 01-3305.Performed By: #### 88581-5 #### [facility] CLIA [id number] [address] [place] [address] [place] OF AMERICAComprehensive metabolic 2000 panelon 42-34-2999Dinhnsx [Mass/Vol]4.0 g/dLNormal3.9-4.9[facility] Comment on above:Order Comment: Specimen Type: BLOOD SPECIMEN Ordering Facility: [facility] Address: [address] [place], [place] [address]Performed By: #### 1987-10, #### [facility] CLIA [id number] [address] [place] [address] [place] AMERICAALP [Catalytic activity/Vol] 110 U/ZRpsxmm18-311Aprpmrqrq HospitalComment on above:Order Comment: Specimen Type: BLOOD SPECIMEN Ordering Facility: [facility] Address: [address] [place], [place] [address]Performed By: #### 1987-10, #### [facility] CLIA [id number] [address] [place] [address] [place] AMERICAALT [Catalytic activity/Vol] 13 U/OIbckxi17-38Iultpiamg HospitalComment on above:Order Comment: Specimen Type: BLOOD SPECIMEN Ordering Facility: [facility] Address: [address] [place], [place] [address]Performed By: #### 1987-10, #### [facility] CLIA [id number] [address] [place] [address] [place] AMERICAAnion gap [Moles/Vol]12 mmol/LNormal8-15[facility] HospitalComment on above:Order Comment: Specimen Type: BLOOD SPECIMEN Ordering Facility: [facility] Address: [address] [place], [place] [address]Performed By: #### 1987-10, #### [facility] CLIA [id number] [address] [place] [address] [place] AMERICAAST [Catalytic activity/Vol] 20 U/GWtolsd51-19Wnpruwkak HospitalComment on above:Order Comment: Specimen Type: BLOOD SPECIMEN Ordering Facility: [facility] Address: [address] [place], [place] [address]Performed By: #### 1987-10, #### [facility] CLIA [id number] [address] [place] [address] [place] AMERICABilirubin [Mass/Vol]0.6 mg/dL Normal0.2-1.3[facility]st HospitalComment on above:Order Comment: Specimen Type: BLOOD SPECIMEN Ordering Facility: [facility] Address: [address] [place], [place] [address]Performed By: #### 1987-10, #### [facility] CLIA [id number] [address] [place] [address] [place] AMERICACalcium [Mass/Vol]9.1 mg/dL Normal8.5-10.2[facility] HospitalComment on above:Order Comment: Specimen Type: BLOOD SPECIMEN Ordering Facility: [facility] Address: [address] [place], [place] [address]Performed By: #### 1987-10, #### [facility] CLIA [id number] [address] [place] [address] [place] AMERICAChloride [Moles/Vol]105 mmol/CHxjovr60-514Gqqexgepf HospitalComment on above:Order Comment: Specimen Type: BLOOD SPECIMEN Ordering Facility: [facility] Address: [address] [place], [place] [address]Performed By: #### 1987-10, #### [facility] CLIA [id number] [address] [place] [address] [place] AMERICACO2 [Moles/Vol]20 mmol/LLow 22-30[facility] HospitalComment on above:Order Comment: Specimen Type: BLOOD SPECIMEN Ordering Facility: [facility] Address: [address] [place], [place] [address]Performed By: #### 1987-10, #### [facility] CLIA [id number] [address] [place] [address] [place] AMERICACreatinine [Mass/Vol]1.07 mg/dLNormal0.73-1.22[facility] HospitalComment on above:Order Comment: Specimen Type: BLOOD SPECIMEN Ordering Facility: [facility] Address: [address] [place], [place] [address]Performed By: #### 1987-10, #### [facility] IA [id number] [address] [place] [address] [place] AMERICACreatinine and Glomerular filtration rate.predicted panel (S/P/Bld)74 mL/min/1.73m???Normal>=60[facility] HospitalComment on above:Order Comment: Specimen Type: BLOOD SPECIMEN Ordering Facility: [facility] Address: [address] [place], [place] [address]Result Comment: Estimated Glomerular Filtration Rate (eGFR) is calculated using the 2020 CKD-EPI cre atinine equation. This equation utilizes serum creatinine, sex, and age as parameters. The creatinine assay has traceable calibration to isotope dilution- mass spectrometry. Refer to KDIGO guidelines for clinical interpretation. In patients with unstable renal function, e.g. those with acute kidney injury, the eGFR may not accurately reflect actual GFR.Performed By: #### 1987-10, #### [facility] CLIA [id number] [address] [place] [address] [place] AMERICAGlucose [Mass/Vol]111 mg/dL Tkpu84-52Hxphnrjzc HospitalComment on above:Order Comment: Specimen Type: BLOOD SPECIMEN Ordering Facility: [facility] Address: [address] [place], [place] [address]Result Comment: The [place] [employer] (ADA) provides [...] 2016, [place] [employer]. Diabetes Care. 2016.39(Suppl 1).Performed By: #### #### [facility] CLIA [id number] [address] [place] [address] [place] AMERICAProtein [Mass/Vol]6.9 g/dL Normal6.3-8.0[facility]rehabilitation [facility] HospitalComment on above:Order Comment: Specimen Type: BLOOD SPECIMEN Ordering Facility: [facility] Address: [address] [place], [place] [address]Performed By: #### #### [facility] CLIA [id number] [address] [place] [address] [place] AMERICASodium [Moles/Vol]137 mmol/L Pfuhnj760-123Yhrojyciy HospitalComment on above:Order Comment: Specimen Type: BLOOD SPECIMEN Ordering Facility: [facility] Address: [address] [place], [place] [address]Performed By: #### #### [facility] CLIA [id number] [address] [place] [address] [place] AMERICAUrea nitrogen [Mass/Vol]15 mg/dLNormal9-24Hillcre HospitalComment on above:Order Comment: Specimen Type: BLOOD SPECIMEN Ordering Facility: [facility] Address: [address] [place], [place] [address]Performed By: #### #### [facility] CLIA [id number] [address] [place] [address] [place] OF AMERICAECG COMPLETEon 96-22-8216QIP COMPLETEVentricular Rate : 83 BPM Atrial Rate : 83 BPM P-R Interval : 184 ms QRS Duration : 80 ms Q-T Interval : 348 ms QTC Calculation(Bazett) : 408 ms Calculated P Dalton : 78 degrees Calculated R Dalton : 3 degrees Calculated T Dalton : 230 degrees POOR DATA QUALITY, INTERPRETATION MAY BE ADVERSELY AFFECTED NORMAL SINUS RHYTHM NONSPECIFIC T WAVE ABNORMALITY ABNORMAL ECG NO PREVIOUS ECGS AVAILABLE NO STEMI CONFIRMED 2057 Confirmed by MERLYN HALL MD ([id number]), editor magazine ROLANDO SPAULDING ([id number]) on 12/21/2023 8:32:15 AM NAME : SAV RAYMUNDO PID : [id number] : 1950 Gender : Male Race : ORD : [id number] Procedure Date : Dec 20 2023 19:12:11 Edit Date : Dec 21 2023 08:32:16 Diagnosis: POOR DATA QUALITY, INTERPRETATION MAY BE ADVERSELY AFFECTED NORMAL SINUS RHYTHM NONSPECIFIC T WAVE ABNORMALITY ABNORMAL ECG NO PREVIOUS ECGS AVAILABLE NO STEMI CONFIRMED 2057 Confirmed by MERLYN HALL MD ([id number]), editor magazine ROLANDO SPAULDING ([id number]) on 12/21/2023 8:32:15 AM Test Reason : Chest Pain Location : 26 : ER L ED Overread By : MERLYN HALL MD Edited By : ROLANDO SPAULDING Referred By : , Acquired by : ,NormalSouthcoast Behavioral Health Hospitalst HospitalED NOTEon 66-99-0466ES NOTEHNO ID: [id number] Author: CHARLIE GRANGER RN Service: ? Author Type: Registered Nurse Type: ED Notes Filed: 12/20/2023 18:48 Note Text: Bed: ED-25 Expected date: Expected time: Means of arrival: Comments: triageNormalHillcrest HospitalED NOTEHNO ID: [id number] Author: KEVIN HINSON RN Service: ? Author Type: Registered Nurse Type: ED Notes Filed: 12/20/2023 14:59 Note Text: Pt arrives to ED from appointment. Pt reported had l pleural effusion done today. Reportedly gets drained multiple times per week. Pt has had incread n/v/d x1 week. Abdominal area is distended according to APPRENTICESHIP TRAINING REPRESENTATIVE. Pt is AANDOx3 and ambulatoryNormalHillcrest HospitalED PROV NOTEon 44-92-1079OK PROV NOTEHNO ID: [id number] Author: MERLYN HALL DO Service: Emergency Medicine [...] components: HELIO High Sen (more content not included)...NormalHillcrest HospitalED Triage Noteon 37-22-0342GM Triage NoteHNO ID: [id number] Author: RAFAELA BATISTA MD Service: Emergency Medicine [...] (radiology procedure) ECG COMPLETE SIGNATURE: Rafaela Batista MDNormalArbury Hills HospitalGas + CO Pnl BldVon 68-43-1240Pibjzbhbi [Moles/Vol]4.6 mmol/LNormal3.7-5.1Hbridgewater state hospital HospitalComment on above:Order Comment: Specimen Type: BLOOD SPECIMEN Ordering Facility: [facility] Address: [address] [place], [place] [address]Performed By: #### MPO #### [facility] CLIA [id number] [address] [place], [place] [address]Performed By: #### 1988-5, 05183-7 #### [facility] CLIA [id number] [address] OF AMERICAGas and Carbon monoxide panel (BldV)on 18-92-3218KMKJ DEFICIT, VENOUS-2 mmol/ULpfkwv-9-6Gyiytrvdv Hospital Comment on above:Order Comment: Specimen Type: BLOOD SPECIMEN Ordering Facility: [facility] Address: [address] [place], [place] [address]Performed By: #### MPO #### [facility] CLIA [id number] [address] [place] [address] 74512Zmdn kciqurefizu94.6 [degF][facility] Comment on above:Order Comment: Specimen Type: BLOOD SPECIMEN Ordering Facility: [facility] Address: [address] [place], [place] [address]Performed By: #### MPO #### [facility] CLIA [id number] [address] [place] [address] 76358Ncqbeem.ionized (Bld) [Mass/Vol]1.22 mmol/LNormal 1.08-1.30[facility] HospitalComment on above:Order Comment: Specimen Type: BLOOD SPECIMEN Ordering Facility: [facility] Address: [address] [place], [place] [address]Performed By: #### MPO #### [facility] CLIA [id number] [address] [place], [place] [address]Carboxyhemoglobin (BldV) [Mass fraction]<1.0Normal 0.0-2.0[facility] HospitalComment on above:Order Comment: Specimen Type: BLOOD SPECIMEN Ordering Facility: [facility] Address: [address] [place] [address] 777[address]Kixweq Comment: Carboxyhemoglobin Reference Range for Smokers: 2.0-8.0%Performed By: #### MPO #### [facility] CLIA [id number] [address] [place] [address] 59825Ehcqdfuw [Moles/Vol]111 mmol/WWryz69-722Oiymthxmp HospitalComment on above:Order Comment: Specimen Type: BLOOD SPECIMEN Ordering Facility: [facility] Address: [address] [place], [place] [address]Performed By: #### MPO #### [facility] CLIA [id number] [address] [place] [address] 29820PX2 (BldV) [Partial pressure]44 mm[Hg]Lkqpxr41-62 [facility] HospitalComment on above:Order Comment: Specimen Type: BLOOD SPECIMEN Ordering Facility: [facility] Address: [address] [place], [place] [address]Cthjfseek By: #### MPO #### [facility] CLIA [id number] [address] [place] [address] 67073Vrdnaqc [Mass/Vol]112 mg/uOIfhx50-436Craoonyij HospitalComment on above:Order Comment: Specimen Type: BLOOD SPECIMEN Ordering Facility: [facility] Address: [address] [place], [place] [address]Performed By: #### MPO #### [facility] CLIA [id number] [address] [place] [address] 75830CLE8 (Bld) [Moles/Vol]23 mmol/WIhk37-13Dddphmujf HospitalComment on above:Order Comment: Specimen Type: BLOOD SPECIMEN Ordering Facility: [facility] Address: [address] [place], [place] [address]Performed By: #### MPO #### [facility] CLIA [id number] [address] [place] [address] 06741Lmbxsosidl (Bld) [Volume fraction]39.6 %Normal 39.0-51.0[facility]ner HospitalComment on above:Order Comment: Specimen Type: BLOOD SPECIMEN Ordering Facility: [facility] Address: [address] [place] [address] 312[address]Wwlgwzyfi By: #### MPO #### [facility] CLIA [id number] [address] [place] [address] 18679Qipghdzzxy (Bld) [Mass/Vol]12.9 g/dLLow13.0-17.0 [facility] HospitalComment on above:Order Comment: Specimen Type: BLOOD SPECIMEN Ordering Facility: [facility] Address: [facility] [place], [place] [address]Kivpcdnao By: #### MPO #### [facility] CLIA [id number] [address] [place] [address] 08184Kntmhyf [Moles/Vol]0.9 mmol/LNormal0.5-2.2Hbridgewater state hospital HospitalComment on above:Order Comment: Specimen Type: BLOOD SPECIMEN Ordering Facility: [facility] Address: [address] [place], [place] [address]Vrewcjfyz By: #### MPO #### [facility] CLIA [id number] [address] [place] [address] 52830Yrnlsckxxdbwx (Bld) [Mass fraction]%Normal0.0-1.5 [facility] HospitalComment on above:Order Comment: Specimen Type: BLOOD SPECIMEN Ordering Facility: [facility] Address: [address] [place] [address] 92877Uqqkspsrh By: #### MPO #### [facility] CLIA [id number] [address] [place] [address] 50315T5 THERAPYRA=Room AirNoHomberg Memorial Infirmary HospitalComment on above:Order Comment: Specimen Type: BLOOD SPECIMEN Ordering Facility: [facility] Address: [address] [place] [address] 717[address]Pvvoeyxji By: #### MPO #### [facility] CLIA [id number] [address] [place] [address] 10890Bkoegw (BldV) [Partial pressure]mm[Hg]Kta41-29 [facility] HospitalComment on above:Order Comment: Specimen Type: BLOOD SPECIMEN Ordering Facility: [facility] Address: [address] [place], [place] [address]Urbymmeqy By: #### MPO #### [facility] CLIA [id number] [address] [place] [address] 01468Tyxbip saturation in Venous blood30 %Cst40-25 [facility] HospitalComment on above:Order Comment: Specimen Type: BLOOD SPECIMEN Ordering Facility: [facility] Address: [address] [place], [place] [address]Tdexibdor By: #### MPO #### [facility] CLIA [id number] [address] [place] [address] 22518Ywrqjpjdybwdi (BldV) [Mass fraction]29 %Hjj17-20 [facility] HospitalComment on above:Order Comment: Specimen Type: BLOOD SPECIMEN Ordering Facility: [facility] Address: [address] [place], [place] [address]Performed By: #### MPO #### [facility] CLIA [id number] [address] [place] [address] 92067iB (BldV)7.34 [pH]Normal7.32-7.42[facility] Comment on above:Order Comment: Specimen Type: BLOOD SPECIMEN Ordering Facility: [facility] Address: [address] [place], [place] [address]Performed By: #### MPO #### [facility] CLIA [id number] [address] [place] [address] 90693Pqyzqx [Moles/Vol]138 mmol/KBpbezh681-685Mvernxbau HospitalComment on above:Order Comment: Specimen Type: BLOOD SPECIMEN Ordering Facility: [facility] Address: [address] [place], [place] [address]Performed By: #### MPO #### [facility] CLIA [id number] [address] [place] [address] 69690GBFR SENSITIVITY TROPONIN T (INITIAL)on 12-20-2023 Troponin T.cardiac High sensitivity method [Mass/Vol]13 ng/LHigh<12[facility] HospitalComment on above:Order Comment: Specimen Type: BLOOD SPECIMEN Ordering Facility: [facility] Address: [address] [place] [address] 179[address]Autsohnwf By: #### 1987-10, #### [facility] CLIA [id number] [address] [place] [address] [facility]ERYHIGH SENSITIVITY TROPONIN T (SECOND)on 19-05-2779Wbcdxdlt T.cardiac High sensitivity method [Mass/Vol]12 ng/LHigh<12[facility] HospitalComment on above:Order Comment: Specimen Type: BLOOD SPECIMEN Ordering Facility: [facility] Address: [address] [place] [address] 289[address]Ravexrhue By: #### 1987-10, #### [facility] CLIA [id number] [address] [place] [address] [place] OF AMERICAHIGH SENSITIVITY TROPONIN T (THIRD) 3 HRS AFTER INITIALon 47-44-4896Aqdgsazs T.cardiac High sensitivity method [Mass/Vol]11 ng/LNormal<12[facility]crest HospitalComment on above:Order Comment: Specimen Type: BLOOD SPECIMEN Ordering Facility: [facility] Address: [address] [place], [place] [address]Performed By: #### 94647-1 #### [facility] CLIA [id number] [address] [place] [id number] STATES OF [facility] HOSPITALHISTORY PHYSICALon 36-97-9623VGXTIWK PHYSICALHNO ID: [id number] Author: ALPA OLIVA APRN.CNP Service: General Internal Medicine Author Type: Nurse Practitioner Type: H&P Filed: 12/21/2023 01:49 Note Text: Summary: Admission Note HISTORY AND PHYSICAL EXAMINATION SERVICE DATE: 12/20/2023 [...] unknown etiology status post an R VATS 5 and pleurodesis with right Pleurx catheter [...] to have significant output in drains every Saturday with approximately 2 to 3 L [...] GENERAL: Negative for malaise, (more content not included)...NormalHillcrest HospitalLipase SerPl-cCncon [id number] [Catalytic activity/Vol]40 U/L [id number] HospitalComment on above:Order Comment: Specimen Type: BLOOD SPECIMEN Ordering Facility: [facility] Address: [address] [place], [place] [address]Performed By: #### 1988-5, 59980-8 #### [facility] CLIA [id number] [place] [id number] [place] AMERICAMagnesium SerPl-mCncon 59-57-8641Twvwjbnkc [Mass/Vol]2.1 mg/dLNormal1.7-2.3Hillcrest HospitalComment on above:Order Comment: Specimen Type: BLOOD SPECIMEN Ordering Facility: [facility] Address: [address] [place], [place] [address]Performed By: #### 1987-10, #### [facility] [place] [id number] [address] [place] [address] [place] AMERICANT-proBNP SerPl-mCncon 11-16-1090Ktkwvjvpkhp peptide.B prohormone N-Terminal [Mass/Vol]464 pg/mLHigh <125Hillcrest HospitalComment on above:Order Comment: Specimen Type: BLOOD SPECIMEN Ordering Facility: [facility] Address: [address] [place], [place] [address]Performed By: #### 1987-10, #### [facility] [place] [id number] [address] [place] [address] [place] AMERICATrigl SerPl-mCncon 12-20-2023 Triglyceride [Mass/Vol]86 mg/dLNormal<150Hillcrest HospitalComment on above: Order Comment: Specimen Type: BLOOD SPECIMEN Ordering Facility: [facility] Address: [address] [place], [place] [address]Result Comment: <150 mg/dL, Normal 150-199 mg/dL, Borderline high 200-499 mg/dL, High >499 mg/dL, Very high Reference: 1. National Cholesterol Education Program ATP III Guideline At-A-Glance Quick Desk Reference: National Heart, Lung, and Blood [place]. National Institutes of Health. 2001: NIH Publication No. 01-3305.Performed By: #### 19273-4 #### [facility] CLIA [id number] [address] [place], [place] [address] [address] [place] OF AMERICATriglyceride [Mass/Vol]on 57-56-8909NBWLWHN TIMEUnknown\X09\NormalHillcrest HospitalComment on above:Order Comment: Specimen Type: BLOOD SPECIMEN Ordering Facility: [facility] Address: [address] [place], [place] [address]Performed By: #### 54497-0 #### [facility] CLIA [id number] [address] [place] [address] [place] [address] [place] AMERICAUrinalysis complete panel (U)on 57-43-8147Otgqiqfxl Ql (U)NegativeNormalNegativeHillcrest HospitalComment on above:Order Comment: Specimen Type: URINE SPECIMEN Ordering Facility: [facility] Address: [address] [place], [place] [address]Performed By: #### 21600-5 #### [facility] CLIA [id number] [address] [place] [address] [place] AMERICAClarity (Unsp spec)Clear NormalClearHillcrest HospitalComment on above:Order Comment: Specimen Type: URINE SPECIMEN Ordering Facility: [facility] Address: [address] [place], [place] [address]Performed By: #### 91961-6 #### [facility] CLIA [id number] [address] [place] [address] [place] AMERICAColor (U)YellowNormalYellow [facility] Hills HospitalComment on above:Order Comment: Specimen Type: URINE SPECIMEN Ordering Facility: [facility] Address: [address] [place], [place] [address]Performed By: #### 65063-8 #### [facility] CLIA [id number] [address] [place] [address] [place] AMERICAEpithelial cells LM.HPF (Urine sed) [#/Area]ModerateNormalHillcrest HospitalComment on above:Order Comment: Specimen Type: URINE SPECIMEN Ordering Facility: [facility] Address: [address] [place], [place] [address]Performed By: #### 86524-9 #### [facility] CLIA [id number] [address] [place] [address] [place] AMERICAGlucose Test strip (U) [Mass/Vol]NegativeNormalTrace, NegativeHillcrest HospitalComment on above:Order Comment: Specimen Type: URINE SPECIMEN Ordering Facility: [facility] Address: [address] [place], [place] [address]Performed By: #### 68883-1 #### [facility] CLIA [id number] [address] [place] [address] [place] AMERICAHemoglobin Ql (U)Negative NormalNegative, TraceHillcrest HospitalComment on above:Order Comment: Specimen Type: URINE SPECIMEN Ordering Facility: [facility] Address: [address] [place], [place] [address]Performed By: #### 76274-4 #### [facility] CLIA [id number] [address] [place] [address] [place] AMERICAKetones Ql (U)NegativeNormal Negative, TraceHillcrest HospitalComment on above:Order Comment: Specimen Type: URINE SPECIMEN Ordering Facility: [facility] Address: [address] [place], [place] [address]Performed By: #### 04369-6 #### [facility] CLIA [id number] [address] [place] [address] [place] AMERICALeukocyte esterase Test strip Ql (U)NegativeNormalNegative, 25 Francisco/uLHillcrest HospitalComment on above:Order Comment: Specimen Type: URINE SPECIMEN Ordering Facility: [facility] Address: [address] [place], [place] [address]Performed By: #### 36438-1 #### [facility] CLIA [id number] [address] [place] [address] [place] AMERICANitrite Ql (U)NegativeNormal NegativeHillcrest HospitalComment on above:Order Comment: Specimen Type: URINE SPECIMEN Ordering Facility: [facility] Address: [address] [place], [place] [address]Performed By: #### 52665-9 #### [facility] CLIA [id number] [address] [place] [address] [place] AMERICApH (U)6.0 [pH]Normal5.0-8.0 [facility] Hills HospitalComment on above:Order Comment: Specimen Type: URINE SPECIMEN Ordering Facility: [facility] Address: [address] [place], [place] [address]Performed By: #### 39734-0 #### [facility] CLIA [id number] [address] [place] [address] [place] AMERICAProtein (U) [Mass/Vol]Trace NormalTrace, NegativeHillcrest HospitalComment on above:Order Comment: Specimen Type: URINE SPECIMEN Ordering Facility: [facility] Address: [address] [place], [place] [address]Performed By: #### 16357-0 #### [facility] CLIA [id number] [address] [place] [address] [place] AMERICARBC LM.HPF (Urine sed) [#/Area]0-3 /HPFNormal0-3 /HPFHillcrest HospitalComment on above:Order Comment: Specimen Type: URINE SPECIMEN Ordering Facility: [facility] Address: [address] [place], [place] [address]Performed By: #### 93852-0 #### [facility] [place] [id number] [address] [place] [address] [place] AMERICASpecific gravity (U) [Rel density]1.413Lazkhd9.005-1.030Hillcrest HospitalComment on above:Order Comment: Specimen Type: URINE SPECIMEN Ordering Facility: [facility] Address: [address] [place], [place] [address]Performed By: #### 42291-7 #### [facility] CLIA [id number] [address] [place] [address] [place] AMERICAUrobilinogen Ql (U)Normal NormalNormalHillcrest HospitalComment on above:Order Comment: Specimen Type: URINE SPECIMEN Ordering Facility: [facility] Address: [address] [place], [place] [address]Performed By: #### 39840-8 #### [facility] CLIA [id number] [address] [place] [address] [place] AMERICAWBC LM.HPF (Urine sed) [#/Area]0-5 /HPFNormal0-5 /HPFHillcrest HospitalComment on above:Order Comment: Specimen Type: URINE SPECIMEN Ordering Facility: [facility] Address: [address] [place], [place] [address]Performed By: #### 46434-1 #### [facility] [id number] [address] [place] [address] [place] AMERICAXR CHEST 1V FRONTAL PORTon 14-90-3162MU CHEST 1V FRONTAL PORT* * *Final Report* * * DATE OF [...] MD on Dec 20 2023 4:14PM EST [id number] HospitalXR CHEST 2V FRONTAL/LATon 50-38-5653ME CHEST 2V FRONTAL/LAT* * *Final Report* * * DATE OF [...] MD on Dec 21 2023 10:03AM EST [id number] HospitalXR Chest PA and Lateralon 47-23-4272Bbddfzydv Study observation (narrative)[facility] Chest PA and Lateralon 49-02-8179WSITNWCJRM: Slight increase of the small right pleural effusion. A follow-up exam is recommended. Transcribed Using Voice Recognition Transcribe Date/Time: Dec 14 2023 1:14P Dictated by: JEFFREY KRUEGER MD This examination was interpreted and the report reviewed and electronically signed by: JEFFREY KRUEGER MD on Dec 14 2023 1:15PM [facility]* * *Final Report* * * DATE OF [...] cardiomediastinal silhouette. Bones and soft tissues: Unremarkable. [facility] RADIOLOGYProvider, [facility] [place] - 12/14/2023 * * *Final Report* * [...] MD on Dec 14 2023 1:15PM EST [facility] CenterXR Chest PA and LateralOrdered By: Migel Provider on 12-14-2023 [facility] HospitalOVon 71-18-6937YQADKyzjjw Visit (BERNARD) SAV RAYMUNDO ([id number]) 1950 Date Time Provider Department 12/13/23 2:00 PM TITA LANDRY During your visit today, we recorded the following information about you: Temperature Pulse Respiration Blood pressure 97.3 degrees 68/minute 16/minute 129/80 Weight Height 104 kg 1.829 m Tita Landry APRN.CNP 01/16/2024 10:44 PM Signed [facility] [place] DEPARTMENT OF THORACIC SURGERY OUTPATIENT VISIT DATE December 13, 2023 OUTPATIENT VISIT TYPE ESTABLISHED PT NAME: Sav Cantu Breanne [facility] NO: [id number] THORACIC SURGEON: Ronaldo Flood M.D. 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 NormalHiBrooks HospitalXR CHEST 2V FRONTAL/LATon 98-69-9410XI CHEST 2V FRONTAL/LAT* * *Final Report* * * DATE OF [...] MD on Dec 14 2023 1:15PM EST [id number] Hospital Medical Center Chest PA and Lateralon 28-84-1374Qwfshmkye Study observation (narrative)[facility] CenterCNOVon 42-76-4924WIWTHwheyq Visit (BERNARD) SAV RAYMUNDO ([id number]) 1950 Date Time Provider Department 12/03/23 1:00 PM TITA LANDRY During your visit today, we recorded the following information about you: Temperature Pulse Respiration Blood pressure 97.8 degrees 74/minute 14/minute 120/78 Weight Height 102.4 kg 1.829 m Tita Landry APRN.CNP 12/30/2023 10:10 PM Signed [facility] Thor[facility] [place] DEPARTMENT OF THORACIC SURGERY OUTPATIENT VISIT DATE December 03, 2023 OUTPATIENT VISIT TYPE ESTABLISHED PT NAME: Sav Raymundo [facility] NO: [id number] THORACIC SURGEON: Ronaldo Flood M.D. 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 No significant left pleural effusion. No pneumothorax. Cardiomediastinal silhouette: Stable cardiomediastinal silhouette. Bones and soft tissues: Degenerative changes are present within the thoracic spine. IMPRESSION: Persistent small right-sided pleural effusion with adjacent atelectases/consolidations, minimally improved since prior. Transcribed Using Voice Recognition Transcribe Date/Time: Dec 05 2023 12:52P Dictated by: SHAWN TALAVERA MD This examination was interpreted and the report reviewed and electronically signed by: SHAWN TALAVERA MD on Dec 05 2023 12:53PM [facility] [id number] Memorial Hospital 88-91-0701KCNMAutlaz Visit (BERNARD) SAV RAYMUNDO ([id number]) 1950 Date Time Provider Department 11/29/23 3:00 PM TITA LANDRY During your visit today, we recorded the following information about you: Temperature Pulse Respiration Blood pressure 97.3 degrees 71/minute 14/minute 121/68 Weight Height 105.6 kg 1.829 m Tita Landry APRN.CNP 12/30/2023 9:20 PM Signed [facility] V[facility] Thor[facility] [place] DEPARTMENT OF THORACIC SURGERY OUTPATIENT VISIT DATE November 29, 2023 OUTPATIENT VISIT TYPE ESTABLISHED PT NAME: Sav Raymundo CLINIC NO: [id number] THORACIC SURGEON: Ronaldo Flood M.D. 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 pleurodesis, right Pleurx catheter insertion, [...] call with surgical patholog (more content not included)...NormalHiBrooks HospitalXR CHEST 2V FRONTAL/LATon 28-42-3353ZU CHEST 2V FRONTAL/LAT* * *Final Report* * * DATE OF [...] MD on Nov 30 2023 4:59PM EST [id number] England Sinai Hospital [id number] (BERNARD) SAV RAYMUNDO ([id number]) 1950 M Date Time Provider Department 11/24/23 RONALDO FLOOD During your visit today, we recorded the following information about you: Allergies As of Date: 11/24/2023 Noted Allergy Reaction TRAMADOL 12/15/2020 1 - Mental Status Change Date Reviewed: 11/23/2023 Reviewed by: Lilia Slater RN - Fully Assessed Primary Visit Diagnosis:Surgery follow-up [Z09] Order(s):XR CHEST 2V FRONTAL/LAT [[id number]] Order #: [id number] FUTURE Prescriptions as of 11/24/2023 - acetaminophen [...] 11/21/2023 Encounter Status:Closed by JACEK RODAS on 11/24/23[facility] Heart Perfusion W stress and W radionuclide [place] 11-12-2023* * *Final Report* * * DATE OF EXAM: Nov 12 2023 11:59AM [facility] 0006 - [place] CARDIAC PERF STRESS/PHARM / PROCEDURE REASON: multiple diagnoses * * * * Physician Interpretation * * * * Stress Paving Foreman Report: [facility] DASH-2 Date of service: 11/12/2023 10:35:44 AM [...] administered radiotracer and doses below. [facility] Date of service: 11/12/2023 10:35:44 AM Ordering [...] * * * Final * * * OR CTA Report: [facility] Date of service: 11/12/2023 10:35:44 AM CTAC interpreting physician: Jose Dawson MD PATIENT: Name: SAV RAYMUNDO Age: 73 years Gender: M 1. Incidental Findings from limited non-diagnostic CTAC: - Coronary calcifications visualized. large right pleural effusion better evaluated on dedicated chest imaging * * * Final * * * Stress ECG Report: [facility] Date of service: 11/12/2023 10:35:44 AM Ordering physician: RONALDO FLOOD digital marketing specialist: Joan Almendarez Eap Specialist: Solange Mosley Interpreting physician: Jose Dawson MD Patient name: SAV RAYMUNDO Age: 73 years Gender: M Height: 182.88 cm BSA: 2.27 m Weight: 101.15 kg BMI: 30.2 kg/m Indication: Encounter for pre-procedural cardiovascular examination for non-cardiac surgery Stress ECG Conclusion: Conclusion: Normal Comments: Non-specific T wave abnormality at rest and (more content not included)...DIVISION OF RADIOLOGYProvider, [facility] [place] - 11/12/2023 * * *Final Report* * * DATE OF EXAM: Nov 12 2023 11:59AM N 0006 - NM CARDIAC PERF STRESS/PHARM / PROCEDURE REASON: multiple diagnoses * * * * Physician Interpretation * * * * Stress Paving Foreman Report: [facility] Date of service: 11/12/2023 10:35:44 [...] See administered radiotracer and doses below. [facility] [place] Date of service: 11/12/2023 10:35:44 AM Ordering [...] * * NM CTAC Report: [facility] Date of service: 11/12/2023 10:35:44 AM CTAC interpreting physician: Jose Dawson MD PATIENT: Name: SAV RAYMUNDO Age: 73 years Gender: M 1. Incidental Findings from limited non-diagnostic CTAC: - Coronary calcifications visualized. large right pleural effusion better evaluated on dedicated chest imaging * * * Final * * * Stress ECG Report: [facility] Date of service: 11/12/2023 10:35:44 AM Ordering physician: RONALDO FLOOD digital marketing specialist: Joan Almendarez Eap Specialist: Solange Mosley Interpreting physician: Jose Dawson MD [...] age. Peak bloo (more content not included)... [facility] Heart Perfusion W stress and W radionuclide IVOrdered By: Ccf Provider on 30-05-9559Petrjyokj [facility]icsNo Panel Informationon 11-12-2023 Radiology Study observation (narrative)[facility] Chest limitedon 47-04-0579Qdofeucaw ClinicXR Chest PA and Lateralon 13-61-9833YLBZDXHCSJ: See result. Rebar Fabricator: AOLNSO Transcribe Date/Time: Nov 12 2023 8:27A Dictated by : BLAS NELSON MD This examination was interpreted and the report reviewed and electronically signed by: BLAS NELSON MD on Nov 12 2023 8:29AM [facility] DIVISION OF RADIOLOGY* * *Final Report* * * DATE OF [...] present within the thoracic spine. DIVISION OF RADIOLOGYProvider, [facility]12/[facility] * * *Final [...] the thoracic spine. IMPRESSION IMPRESSION: See result. Rebar Fabricator: ALONSO Transcribe Date/Time: Nov 12 2023 8:27A Dictated by : BLAS NELSON MD This examination was interpreted and the report reviewed and electronically signed by: BLAS NELSON MD on Nov 12 2023 8:29AM EST [facility]XR Chest PA and LateralOrdered By: Ccf Provider on 11-12-2023 [facility] Medical CenterDetermination of appearance of body fluidon 50-31-3513Mzpgvhhfkd (Body fld)[facility] WestEvaluation of color of body fluidon 52-93-9849Wvdfo (Body fld)Yellow.[facility] Comment on above:Colorless to Pale Yellow/StrawLon 12-92-5953JBjygqdnx: [id number] Received: 10/02/23 Status: MARITA Nolasco Num: [id number] Spec Type: Cytology Subm Dr: Sintia Clemente DO Tissues: A PLEURAL FLUID (RIGHT PLEURAL FLUID) Procedures: HE/2, Gross/Micro L4, Cyto Prepstain, PAPSTN Age/ Patient Sex Location Account Attending Physician Sav Raymundo 73/M LABELL [id number] Sintia Clemente DO SPEC NUM: [id number] RECD: 10/02/23 STATUS: MARITA NOLASCO NUM: [id number] HALLIE: 10/01/[address]: Sintia Clemente DO ENTERED: 10/02/[address] [facility] [address]: SPEC TYPE: Cytology DEPT: FAIZA NCYT ENTERED BY: [id number] RECV BY: [id number] ORDERED: HE/2, Gross/Micro L4, Cyto Prepstain, PAPSTN [...] are prepared. 1 cell blocks are prepared. (NV/nh) Specimen: [id number] Received: 10/02/23-1403 Status: MARITA Nolasco Num: [id number] Spec Type: Cytology Subm Dr: Sintia Clemente DO Tissues: A PLEURAL FLUID (RIGHT PLEURAL FLUID) Procedures: HE/2, Gross/Micro L4, Cyto Prepstain, PAPSTN Patient: Sav Raymundo [id number] (Continued) Signed (signature on file) Jaspal Olmedo MD 10/03/23 1259[facility] GroupLaboratory - Microbiology and Antimicrobial susceptibilityOrdered By: Yuli Mariscal on 33-79-3358Fwhougctbqk observation Gram stain Nom (Unsp spec)Ber[facility] HospitalManual body fluid eosinophils/100 leukocyteson 18-99-4498Rjblargdfih/100 WBC Manual cnt (Body fld)0 %Not Estab.[facility] HospitalComment on above: Performed at: CB - [facility] [address] [id number] Director: Norm Alcaraz PhD, Phone: [phone] body fluid lymphocytes/100 leukocyteson 73-99-7254Degkfxwhrzt/100 WBC Manual cnt (Body fld) 39 %Not Estab.[facility] HospitalNeutrophils/100 WBC Manual cnt (Body fld)on 24-83-8478Fvkwuqniiwr/100 WBC (Body fld)5 %0-24Berger HospitalNo Panel InformationOrdered By: Yuli Mariscal on 49-20-9973Fnxx Fast SmearBerger HospitalAFB Specimen ProcessingBerger HospitalNo Panel Informationon 34-87-3819Wghv Fluid CommentTNP. Berger HospitalBody Fluid Ytjzbpl408 mg/dL.[facility]ger HospitalComment on above: : BODY FLUID TYPE : [...] Pleural Fluid : 65 - 99 : :____ : : : Saliva : < 2 : : (Mixed Glands) : : : : : : Sweat : < 7 : : : : : Synovial Fluid : 65 - 99 : : : : : Tears : 76 - 288 : : : : Altagracia WAdeel V. Reference Intervals for Adults and Children 2007. Ninth edition (V9.1) [employer], [facility]; [place]: December 2008.Body Fluid Lining CellTNP.Berger HospitalBody Fluid Macrophages (%)56 %Not Estab.Berger HospitalBody Fluid pHTNP.[facility] HospitalComment on above:Test not performed. Test is not approved for the collectionsite indicated.This test was developed and its performance characteristicsdetermined by [facility]. It has not been cleared orapproved by the Food and Drug Administration.The reference interval(s) and other method performance specificationshave not been established for this body fluid. The test result must beintegrated into the clinical context for interpretation.Performed at: [address], [place] [id number] Director: Yan Escamilla MD, Phone: [phone] Fluid UAE1617 /uLNot Estab.Berger HospitalBody Fluid Total Nucleated Fvfeu3130 /gw37-755RzhsqfphzBerger HospitalComment on above:Pleural Fluid, with <1000 Nucleated cells/uL has beenassociated with transudates while >1000 uL may be seenin exudates.Body Fluid Total Protein3.7 g/dL.[facility] Comment on above: : BODY FLUID [...] : : : Transudate: <0.3 : : PleuralFluid : Exudate: >0.3 : : : : : Saliva : 0.1 - 0.2 : : (Mixed Glands) : : : : : : Synovial Fluid : <2.5 : : : : : Tears : 0.8 - 0.9 : : : : Adeel Das V. Reference Intervals for Adults and Children 2007. Ninth Edition (V9.1) [employer], [facility]; [place]: December 2008.Performed at: CB - [facility] [address] [id number] Director: Norm Alcaraz PhD, Phone: [phone] Smear ResultBerger HospitalMiscellaneous Test CommentSee commentBerger HospitalComment on above:Specimen Source: PL - Pleural Fluid - Pleural Fl - 401.000Estimated glomerular filtration rate (GFR) non- Americanon 07-08-6287DCE/1.73 sq M.predicted among non- blacks MDRD (S/P/Bld) [Vol rate/Area]mL/min/{1.73_m2}>=60Ber[facility] HospitalLaboratory - Chemistry and Chemistry - challengeon 09-11-2023 Creatinine [Mass/Vol]1.02 mg/dL0.70-1.30[facility] GFR/1.73 sq M.predicted MDRD (S/P/Bld) [Vol rate/Area]mL/min/{1.73_m2}>=60 Berger HospitalBody fluid differential cell countOrdered By: Sintia Clemente on 65-48-7463Fwkhuggizeqr panel (Body fld)50 %Berger HospitalComment on above:The reference interval and other method performance specifications have not been established for this body fluid. The test result must be integrated into the clinical context for interpretation.Cell Count/Diff, Fluidon 15-70-1150Yyxleqpwiw, FluidHazyNormalThe [facility] Hospital Physician GroupComment on above:Order Comment: Body Fluid Source: Pleural Fluid Body Fluid Site: PLEURAL FLUIDResult Comment: The reference interval and other method performance specifications have not been established for this body fluid. The test result must be integrated into the clinical context for interpretation.Performed By: #### FLCCDIFF #### [address] Physician Group Comment on above:Order Comment: Body Fluid Source: Pleural Fluid Body Fluid Site: PLEURAL FLUIDResult Comment: The reference interval and other method performance specifications have not been established for this body fluid. The test result must be integrated into the clinical context for interpretation.Performed By: #### FLCCDIFF #### [facility] [address] [place] [address] USACoShasta Regional Medical Center Physician GroupComment on above:Order Comment: Body Fluid Source: Pleural Fluid Body Fluid Site: PLEURAL FLUIDResult Comment: The reference interval and other method performance specifications have not been established for this body fluid. The test result must be integrated into the clinical context for interpretation.Performed By: #### FLCCDIFF #### [facility] [address] [id number] USAEosinophils, Fluid0 /100{WBC}Normal0-3The [facility] Physician GroupComment on above:Order Comment: Body Fluid Source: Pleural Fluid Body Fluid Site: PLEURAL FLUIDResult Comment: PERFORMED BY: [place] [address] PATHOLOGIST LIGHTER KATHY HENDRICKSON M.D.Performed By: #### FLCCDIFF #### [place] [address] USALymphocytes, Fluid38 %NormalThe [facility] Comment on above:Order Comment: Body Fluid Source: Pleural Fluid Body Fluid Site: PLEURAL FLUIDResult Comment: The reference interval and other method performance specifications have not been established for this body fluid. The test result must be integrated into the clinical context for interpretation.Performed By: #### FLCCDIFF #### [place] [id number] USAMonocytes/Macrophages, Fluid50 %NormalThe [facility] Physician GroupComment on above:Order Comment: Body Fluid Source: Pleural Fluid Body Fluid Site: PLEURAL FLUIDResult Comment: The reference interval and other method performance specifications have not been established for this body fluid. The test result must be integrated into the clinical context for interpretation.Performed By: #### FLCCDIFF #### [place] [address] USANeutrophil, Fluid12 %NormalThe [facility] Comment on above:Order Comment: Body Fluid Source: Pleural Fluid Body Fluid Site: PLEURAL FLUIDResult Comment: The reference interval and other method performance specifications have not been established for this body fluid. The test result must be integrated into the clinical context for interpretation.Performed By: #### FLCCDIFF #### [place] [address] USARBC, Syugl63235 /uLNormalThe [facility] Comment on above:Order Comment: Body Fluid Source: Pleural Fluid Body Fluid Site: PLEURAL FLUIDResult Comment: The reference interval and other method performance specifications have not been established for this body fluid. The test result must be integrated into the clinical context for interpretation.Performed By: #### FLCCDIFF #### [facility] [address] [address] USATNC, Body Mzijn316 /[facility] Comment on above:Order Comment: Body Fluid Source: Pleural Fluid Body Fluid Site: PLEURAL FLUIDResult Comment: The reference interval and other method performance specifications have not been established for this body fluid. The test result must be integrated into the clinical context for interpretation.Performed By: #### FLCCDIFF #### [facility] [address] [address] USAColor of Spun Body fluidOrdered By: Sintia Clemente on 98-46-4012Qorzq (Spun body fld)[facility]axahachieComment on above:The reference interval and other method performance specifications have not been established for this body fluid. The test result must be integrated into the clinical context for interpretation.Determination of appearance of body fluidOrdered By: Sintia Clemente on 20-74-8399Tymlduqgwn (Body fld)[facility] DaytonComment on above:The reference interval and other method performance specifications have not been established for this body fluid. The test result must be integrated into the clinical context for interpretation. Evaluation of color of body fluidOrdered By: Sintia Clemente on 79-11-3363Vjoat (Body fld)[facility] WaxahachieComment on above:The reference interval and other method performance specifications have not been established for this body fluid. The test result must be integrated into the clinical context for interpretation.Xander 33-72-9684GJhzaqblu: [id number] Received: 09/06/23 Status: [facility] Num: [id number] Spec Type: Cytology Subm Dr: Sintia Clemente DO Tissues: A PLEURAL FLUID (PLEUR) Procedures: HE/2, Gross/Micro L4, AE1-AE3, CALRETININ, CK20, CK 7, TTF1, Cyto Prepstain, NKX3.1, MOC31, SOX-10, PAPSTN Age/ Patient Sex Location Account Attending Physician Sav Raymundo Pepe 73/M [facility] [id number] Sintia Clemente DO SPEC NUM: [id number] RECD: 09/06/23 STATUS: MARITA NOLASCO NUM: [id number] HALLIE: 09/04/23-7 [facility] [address]: Sintia Clemente DO ENTERED: 09/06/[address]: FILEMON TYPE: Cytology DEPT: CNG ENTERED BY: [id number] RECV BY: [id number] ORDERED: HE/2, Gross/Micro L4, AE1-AE3, CALRETININ, CK20, [...] are prepared. 1 cell blocks are prepared. (NV/nh) Specimen: [id number] Received: 09/06/23 Status: MARITA Nolasco Num: [id number] Spec Type: Cytology Subm Dr: Sintia Celmente DO Tissues: A PLEURAL FLUID (PLEUR) Procedures: HE/2, Gross/Micro L4, AE1-AE3, CALRETININ, CK20, CK 7, TTF1, Cyto Prepstain, NKX3.1, MOC31, SOX-10, PAPSTN Patient: Sav Raymundo [id number] (Continued) Signed (signature on file) Jaspal Olmedo MD 09/12/[address] [place] [address] Physician GroupLaboratory - Chemistry and Chemistry - challengeon 01-45-1106Gcobrgtsvcm [Mass/Vol]59 mg/dL<=200[facility] HospitalLaboratory - Microbiology and Antimicrobial susceptibilityOrdered By: Yuli Mariscal on 61-78-6998Npaehvtnqlz observation Gram stain Nom (Unsp spec)[facility] body fluid eosinophils/100 leukocytesOrdered By: Sintia Clemente on 45-10-9447Ztmafsgwgyd/100 WBC Manual cnt (Body fld)0 /100{WBC}0-3FOhioHealth Southeastern Medical Center body fluid erythrocytes count (number/volume)Ordered By: Sintia Clemente on 13-03-7056LMR Manual cnt (Body fld) [#/Vol][id number] /[facility] PrebleComment on above:The reference interval and other method performance specifications have not been established for this body fluid. The test result must be integrated into the clinical context for interpretation.Manual body fluid lymphocytes/100 leukocytesOrdered By: Sintia Clemente on 09-04-2023 Lymphocytes/100 WBC Manual cnt (Body fld)38 %[facility] Comment on above:The reference interval and other method performance specifications have not been established for this body fluid. The test result must be integrated into the clinical context for interpretation.Neutrophils/100 WBC Manual cnt (Body fld)Ordered By: Sintia Clemente on 02-91-2560Adujoailcur/100 WBC (Body fld)12 %Berger HospitalComment on above:The reference interval and other method performance specifications have not been established for this body fluid. The test result must be integrated into the clinical context for interpretation.No Panel InformationOrdered By: Yuli Mariscal on 95-43-6017Vsjm Fast SmearBerger HospitalAFB Specimen ProcessingBerger HospitalNo Panel Informationon 07-05-6606Tjto Fluid Yfigont67 U/L.Berger HospitalComment on above: : BODY FLUID TYPE : AMYLASE : : : : : Lymph : 50 - 83 : : : : : Peritoneal : : : Fluid : 88 - 109 : : : : : Saliva : : : (Mixed Glands) : [id number] : : : : Adeel Das V. Reference Intervals for Adults and Children 2007. Edition (V9.1) [facility]; [place]: December 2008.Performed at: CB - [facility] [address] [place], [place] [id number] Director: Norm Alcaraz PhD, Phone: [phone] Fluid Vskiqrz983 mg/dL.[facility] Comment on above: : BODY FLUID [...] Pleural Fluid : 65 - 99 : :____ : : : Saliva : < 2 [...] edition (V9.1) [employer] [facility] [employer], [facility]; [place]: December 2008.Body Fluid pH8.2Not Estab.Berger HospitalComment on above:This test was developed and its performance characteristicsdetermined by [facility]. It has not been cleared orapproved by the Food and Drug Administration.The reference interval(s) and other method performance specificationshave not been established for this body fluid. The test result must beintegrated into the clinical context for interpretation.Performed at: [facility] [place] [id number] Director: Yan Escamilla MD, Phone: [phone] Fluid Total Protein3.7 g/dL.Berger HospitalComment on above: : BODY FLUID TYPE : [...] : : : Transudate: <0.3 : : PleuralFluid : Exudate: >0.3 : : : : : Saliva : 0.1 - 0.2 : : (Mixed Glands) : : : : : : Synovial Fluid : <2.5 : : : : : Tears : 0.8 - 0.9 : : : : Adeel Das V. Reference Intervals for Adults and Children 2007. Ninth Edition (V9.1) [employer] [facility], [facility]; [place]: December 2008.Body Fluid Necxskwpysbja69 mg/dLNot Estab. Berger HospitalComment on above:The reference interval(s) and other method performance specificationshave not been established for this body fluid. The test result must beintegrated into the clinical context for interpretation.Performed at: [facility] [address] [id number] Director: Norm Alcaraz PhD, Phone: [phone] Smear City HospitalMiscellaneous Test CommentSee comment Berger HospitalComment on above:Specimen Source: PL - Pleural Fluid - Pleural Fl - 401.000No Panel InformationOrdered By: Sintia Clemente on 17-56-0659Fwjr Fluid Total Nucleated Ycvun159 /[facility] PrebleComment on above:The reference interval and other method performance specifications have not been established for this body fluid. The test result must be integrated into the clinical context for interpretation.Serum or plasma free cefuroxime measurement (mass/volume)on 02-12-4637Qfmvhdaoov free [Mass/Vol] TNP.Berger HospitalComment on above:Test not performed. No serum gel received.Contacted Shelby at your facility 09/06/2023Test not performed. No serum gel received.Contacted Shreya at your facility 09/06/2023--- 09/06/23 1311 ---GREY Direct previously reported as: Test not performedTest not performed. No serum gel received.Contacted Shelby at your facility 09/06/2023Serum or plasma rheumatoid factor measurement (units/volume)on 74-05-6574Nshpiqadsi factor Qn TNP [IU]/mL.Berger HospitalComment on above:Test not performed. No serum gel received.Contacted Shelby at your facility 09/06/2023Test not performed. No serum gel received.Contacted Shreya at your facility 09/06/2023--- 09/06/23 1311 ---RF previously reported as: Test not performed IU/mLTest not performed. No serum gel received.Contacted Shelbyat your facility 09/06/2023denosine monophosphate.cyclic [Moles/Vol]on 59-11-3118Kolgbn Citrullinated Peptid IgG/IgA1 units0-19Berger HospitalComment on above:Negative <20 Weak positive 20 - 39 Moderate positive 40 - 59 Strong positive >59Performed at:[facility] [id number] Director: Norm Alcaraz PhD, Phone: [phone] <20 Weak positive 20 - 39 Moderate positive 40 - 59 Strong positive >59Performed at:[facility] [id number] Director: Norm Alcaraz PhD, Phone: [phone] perinuclear antineutrophil cytoplasmic antibodies measurementon 66-22-6991Czusysakey cytoplasmic Ab.perinuclear.atypical IF (S) [Titer]<1:20 titerNeg:<1:20Berger HospitalComment on above:The atypical pANCA pattern has been observed in asignificant percentage of patients with ulcerativecolitis,primary sclerosing cholangitis and autoimmune hepatitis.Performed at: [facility] [facility] [id number] Director: Yan Escamilla MD, Phone: [phone] at: [facility] [id number] Director: Norm Alcaraz PhD, Phone: [phone] capsulatum antibody detection by complement fixationon 08-28-2023H. capsulatum Ab CF Ql (S)NegativeNeg:<1:2FPremier Health Miami Valley Hospital SouthComment on above: Performed at: [address] [id number] Director: Yan Escamilla MD, Phone: [phone] Ab [Units/volume] in Serum by Immunoassayon 45-95-1761Hnbpyaohoadtbjp Ab IA Qn (S) <0.2 units0.0-0.9Berger HospitalNo Panel Informationon 04-15-6296Vwpotbzkejmxl TestCOMMENT.Berger HospitalComment on above:Test Ordered: [id number] [place] A IgG/IgM AntibodyCoxsackie A7 IgG 1:100 [H ] titer Reference Range: Neg:<1:100[place] A9 IgG 1:100 [H ] titer BN Reference Range: Neg:<1:100[place] A16 IgG 1:100 [H ] titer BN Reference Range: Neg:<1:100[place] A24 IgG 1:100 [H ] titer BN Reference Range: Neg:<1:100[place] A7 IgM Negative titer BN Reference Range: Neg:<1:10[place] A9 IgMNegative titer BN Reference Range: Neg:<1:10[place] A16 IgM Negative titer BN Reference Range:Neg:<1:10[place] A24 IgM Negative titer BN Reference Range: Neg:<1:10Performed at: [address] [id number] Director: Yan Escamilla MD, Phone: [phone] at: [facility] [place], [place] [id number] Director: Norm Alcaraz PhD, Phone: [phone] ANCA (p-ANCA) Antibody<1:20 titerNeg:<1:20Berger HospitalComment on above: The presence of positive fluorescence exhibiting P-ANCA orC-ANCA patterns alone is not specific forthe diagnosis ofWegener's Granulomatosis (WG) or microscopic polyangiitis.Decisions about treatmentshould not be based solely onANCA IFA results. The International ANCA Group Consensusrecommends follow up testing of positive sera with both MO-3 and MPO-ANCA enzyme immunoassays. As many as 5% serumsamples are positive only by EIA. Ref. AM J Clin Kkolkz0625;111:507-513. Histoplasma Galactomannan AntigenNegative<0.5 ng/mLBerger HospitalComment on above:This test was developed and its performance characteristicsdetermined by [facility]. It has not been cleared orapproved by the Food and Drug Administration.Performed at: [facility] [facility] [place] [address], [place] [id number] Director: Janine Goodman MD, Phone: [phone] 3 Ab [Units/volume] in Serum by Immunoassayon 08-28-2023 Proteinase 3 Ab IA Qn (S)<0.2 units0.0-0.9[facility]rus HospitalCL- 70 extractable nuclear Ab IA Qn (S)on 33-12-9827Unn-70 (Scleroderma) Antibody <0.2 AI0.0-0.9Berger HospitalComment on above:Performed at: [facility] [employer] [id number] Director: Norm Alcaraz PhD, Phone: [phone] at: [employer] [facility] [address] [id number] Director: Norm Alcaraz PhD, Phone: [phone] Serum angiotensin converting enzyme (NANDO) measurementon 92-53-4214Jzcsovuuyjk converting enzyme [Catalytic activity/Vol]34 U/D24-43QipauhdnrBerger HospitalComment on above:Performed at: [facility] [address] [id number] Director: Norm Alcaraz PhD, Phone: [phone] classic neutrophil cytoplasmic antibody titer by immunofluorescenceon 08-28-2023 Neutrophil cytoplasmic Ab.classic IF (S) [Titer]<1:20 titerNeg:<1:20[facility] Hospitalerum or plasma rheumatoid factor measurement (units/volume)on 84-54-8455Motmniswqc factor Qn[IU]/mL<14.0Berger HospitalComment on above:Performed at: [facility] [address] [place], [place] [id number] Director: Norm Alcaraz PhD, Phone: [phone] Laboratory - Chemistry and Chemistry - challengeon 56-06-9953Jgjhhypll (Vitamin B12) [Mass/Vol]3286.0 pg/mL193.0-986.0Berger HospitalTSH Qn 1.287 m[IU]/L0.358-3.740Berger HospitalLaboratory - Hematology and Cell countson 65-87-7667WZC (Bld) [Velocity]126 mm/h<=20Berger HospitalNo Panel Informationon 36-63-5615S-Reactive Protein, Quantitative 4.28 mg/dL<=0.50Berger HospitalFolate21.60 ng/mL8.60-58.90 [facility] Hospitalerum or plasma free cefuroxime measurement (mass/volume)on 07-27-3277Kmohplhrff free [Mass/Vol]NegativeNegativeBerger HospitalComment on above:Performed at: [facility] [address] [id number] Director: Norm Alcaraz PhD, Phone: [phone] Auto (Bld) [#/Vol]on 03-90-9408Oxxnnuglv (Bld) [#/Vol]0.0 10 3/uL0.0-0.1FPremier Health Miami Valley Hospital SouthBasophils/100 WBC Auto (Bld)on 51-53-2833Zgunpvfpx/100 WBC (Bld)0.2 %0.2-2.0[facility] Eosinophils/100 WBC Auto (Bld)on 38-94-3803Qybdnozedfk/100 WBC (Bld)0.0 %0.9-7.0 Berger HospitalErythrocyte distribution width Auto (RBC) [Ratio]on 19-37-6413Wqizqzzgbpo distribution width (RBC) [Ratio]12.5 %11.0-15.0 Berger HospitalEstimated glomerular filtration rate (GFR) non- Americanon 89-64-7450HLK/1.73 sq M.predicted among non-blacks MDRD (S/P/Bld) [Vol rate/Area]mL/min/{1.73_m2}>=60[facility] Globulin Calc (S) [Mass/Vol]on 26-88-5175Svhemfmo (S) [Mass/Vol]4.7 g/dL Berger HospitalHematocrit Auto (Bld) [Volume fraction]on 01-78-8108Wmehmpargt (Bld) [Volume fraction]34.7 %42.0-54.0Berger HospitalHemoglobin [Mass/volume] in Bloodon 43-01-0136Cisxlvipvn (Bld) [Mass/Vol]11.2 g/dL14.0-18.0[facility] HospitalLaboratory - Chemistry and Chemistry - challengeon 36-34-7290Uvtgekn [Mass/Vol]3.2 g/dL 3.4-5.0Ber[facility] HospitalALP [Catalytic activity/Vol]66 U/L46-116 [facility] HospitalALT [Catalytic activity/Vol]33 U/L16-63 [facility] HospitalAST [Catalytic activity/Vol]24 U/L15-37 Berger HospitalBilirubin [Mass/Vol]0.6 mg/dL0.2-1.0Berger HospitalCalcium [Mass/Vol]8.9 mg/dL8.5-10.1FPremier Health Miami Valley Hospital SouthChloride [Moles/Vol]101 mmol/X37-587QcbavxqsuBerger HospitalCO2 [Moles/Vol]27.4 mmol/L21.0-32.0[facility] Creatinine [Mass/Vol]1.06 mg/dL0.70-1.30[facility] GFR/1.73 sq M.predicted MDRD (S/P/Bld) [Vol rate/Area]mL/min/{1.73_m2}>=60 Berger HospitalGlucose [Mass/Vol]115 mg/xL33-990ZgkbvnbkhBerger HospitalNatriuretic peptide B (Bld) [Mass/Vol]397.0 pg/mL<=900.0 Berger HospitalPotassium [Moles/Vol]3.8 mmol/L3.5-5.1FPremier Health Miami Valley Hospital SouthProtein [Mass/Vol]7.9 g/dL6.4-8.2FRegional Medical Centerodium [Moles/Vol]138 mmol/P731-067PjotxmxggBerger HospitalUrea nitrogen [Mass/Vol]15.0 mg/dL7.0-18.0Berger HospitalUrea nitrogen/Creatinine [Mass ratio]14.2 mg/mgBerger HospitalLaboratory - Hematology and Cell countson 75-02-3445YZQ (Bld) [Velocity] mm/h<=20Berger HospitalImmature granulocytes/100 WBC (Bld)0.4 %0.0-0.5FPremier Health Miami Valley Hospital SouthLaboratory - Microbiology and Antimicrobial susceptibilityon 10-50-1703JGEZ-CoV-2 (COVID-19) RNA BRYN+probe Ql (Unsp spec)NegativeNEGATIVEBerger HospitalComment on above: This test has not been FDA cleared or approved, but has beenauthorized [...] the declaration isterminated or authorization is revoked sooner.Leukocytes [#/volume] corrected for nucleated erythrocytes in Blood by Automated counon 05-09-1355ZAX corrected for nucl RBC Auto (Bld) [#/Vol]9.9 10 3/uL4.0-11.0Berger HospitalLymphocytes Auto (Bld) [#/Vol]on 50-97-8946Eemrxcgmjav (Bld) [#/Vol]0.8 10 3/uL1.2-3.8Berger HospitalLymphocytes/100 WBC Auto (Bld)on 13-61-8333Zlskuozzkrf/100 WBC (Bld)8.0 %20.5-60.0[facility] HospitalH Auto (RBC) [Entitic mass]on 34-61-0592HJV (RBC) [Entitic mass]32.3 pg 25.9-34.0[facility] HospitalHC Auto (RBC) [Mass/Vol]on 06-52-4880NPMS (RBC) [Mass/Vol]32.3 g/dL29.9-35.2FPremier Health Miami Valley Hospital SouthMCV Auto (RBC) [Entitic vol]on 58-22-3065CUA (RBC) [Entitic vol]100.0 fL 80.0-94.0Berger HospitalMonocytes Auto (Bld) [#/Vol]on 31-61-0034Qxcdmhooz (Bld) [#/Vol]1.0 10 3/uL0.3-0.8Berger HospitalMonocytes/100 WBC Auto (Bld)on 05-73-6015Jjsibfhyk/100 WBC (Bld)9.9 % 1.7-12.0Berger HospitalNeutrophils Auto (Bld) [#/Vol]on 27-67-6244Eaczfpjyuzk (Bld) [#/Vol]8.1 10 3/uL1.4-6.5FPremier Health Miami Valley Hospital SouthNeutrophils/100 WBC Auto (Bld)on 99-32-9053Lusiduhmnis/100 WBC (Bld)81.5 % 43.0-75.0[facility] HospitalNo Panel Informationon 87-31-2551Y- Reactive Protein, Quantitative6.36 mg/dL<=0.50[facility] Eosinophils # (Auto)0.0 10 3/uL0.0-0.7FPremier Health Miami Valley Hospital SouthImmature Granulocyte # (Auto)0.04 10 3/uL0.00-0.03[facility] Troponin I High Ybneaokuscg49.9 pg/mL4.0-76.1FPremier Health Miami Valley Hospital South Comment on above:CUT-OFF POINTS HAVE BEEN ESTABLISHED BASED ON THE FOURTHUNIVERSAL DEFINITION OF MYOCARDIAL INFARCTION. THE UPPERREFERENCE LIMIT (URL) OF TROPONIN, DEFINED THE 99THPERCENTILE OF cTnI DISTRIBUTION IN A REFERENCE POPULATION,HAS BEEN CONFIRMED THE DECISION THRESHOLD FOR MIDIAGNOSIS.99TH PERCENTILE = 76.2 PG/MLNOTE: HIGH-SENSITIVITY TROPONIN ASSAY IS NOT INTENDED TO BEUSED IN ISOLATION BUT SHOULD BE INTERPRETED IN CONJUNCTIONWITH OTHER DIAGNOSTIC AND CLINICAL INFORMATION.Bedside Influenza Type A AntigenNegativeBerger HospitalComment on above:Negative for Flu A protein antigen. Infection due to Flu Acannot be ruled out. Flu A antigen in thesample may bebelow the detection limit of the test.Bedside Influenza Type B AntigenNegativeBerger HospitalComment on above:Negative for Flu B protein antigen. Infection due to Flu Bcannot be ruled out. Flu B antigen in thesample may bebelow the detection limit of the test.Platelet mean volume Auto (Bld) [Entitic vol]on 57-15-7559Gtllykso mean volume (Bld) [Entitic vol]9.5 fL9.5-13.5FPremier Health Miami Valley Hospital SouthPlatelets Auto (Bld) [#/Vol]on 46-85-9900Rxzdjdmdw (Bld) [#/Vol]288 10 3/pP681-156SrhifpsiiBerger HospitalRBC Auto (Bld) [#/Vol]on 33-18-0608PIE (Bld) [#/Vol]3.47 10 6/uL4.70-6.10 [facility] Hospitalerum or plasma albumin/globulin mass ratioon 58-19-5820Wxffjhq/Globulin [Mass ratio]0.7 {ratio}[facility] Hospitalerum or plasma anion gap determinationon 08-03-2082Rstru gap [Moles/Vol] 13.4 mmol/LFPremier Health Miami Valley Hospital SouthXR KNEE LEFT 4+ VIEWS (SPECIFY VIEWS IN COMMENTS)on 49-22-3088RI KNEE LEFT 4+ VIEWS (SPECIFY VIEWS IN COMMENTS)X- rays of the left knee from [facility] taken today are reviewed. My personal [...] HUFF on SatJan 16, 2023 10:52:01 AM [facility] on above:Order Comment: Injury/Trauma or Illness?:Illness/Other How long have you had these symptoms (acute/chronic)?:Unknown Reason for exam?:U History of cancer?:n/a Surgeries, chemotherapy, or radiation?:n/a Type of Exam?:Unknown Additional signs and symptoms?:UXR ANKLE LEFT 3+ VIEWS (STANDARD)on 75-21-6339ME ANKLE LEFT 3+ VIEWS (STANDARD)Weightbearing radiographs of the left foot and ankle [...] EDOUARD on SatAug 28, 2022 1:49:21 PM [facility] on above:Order Comment: Injury/Trauma or Illness?:Illness/Other How long have you had these symptoms (acute/chronic)?:Unknown Reason for exam?:n/a History of cancer?:n/a Surgeries, chemotherapy, or radiation?:n/a Type of Exam?:Unknown Additional signs and symptoms?:n/aXR ANKLE RIGHT 3+ VIEWS (STANDARD)on 05-89-0466TH ANKLE RIGHT 3+ VIEWS (STANDARD)Weightbearing radiographs of the right foot and ankle [...] EDOUARD on SatAug 28, 2022 1:50:20 PM [facility] on above:Order Comment: Injury/Trauma or Illness?:Illness/Other How long have you had these symptoms (acute/chronic)?:Unknown Reason for exam?:n/a History of cancer?:n/a Surgeries, chemotherapy, or radiation?:n/a Type of Exam?:Unknown Additional signs and symptoms?:n/aXR FOOT LEFT 2 VIEWSon 31-96-4888BR FOOT LEFT 2 VIEWSWeightbearing radiographs of the left foot and ankle [...] EDOUARD on SatAug 28, 2022 1:49:28 PM [facility] on above:Order Comment: Injury/Trauma or Illness?:Illness/Other How long have you had these symptoms (acute/chronic)?:Unknown Reason for exam?:n/a History of cancer?:n/a Surgeries, chemotherapy, or radiation?:n/a Type of Exam?:Unknown Additional signs and symptoms?:n/aXR FOOT RIGHT 2 VIEWSon 98-62-4849CP FOOT RIGHT 2 VIEWSWeightbearing radiographs of the right foot and ankle [...] EDOUARD on SatAug 28, 2022 1:50:37 PM EDTOhio [facility] AmbulatoryComment on above:Order Comment: Injury/Trauma or Illness?:Illness/Other How long have you had these symptoms (acute/chronic)?:Unknown Reason for exam?:n/a History of cancer?:n/a Surgeries, chemotherapy, or radiation?:n/a Type of Exam?:Unknown Additional signs and symptoms?:n/aCBC AUTO DIFFon 07-46-5737SGTE #0.1 103/ul Normal0.0-0.1[facility] HospitalComment on above:Performed By: #### DATCBC #### [facility] [address] [place] [address] Dr. Joni SandersBasophils/100 WBC (Bld)1.0 %Normal0.2-2.0[facility] Comment on above:Performed By: #### DATCBC #### [facility] [address] [place] [address] Dr. Joni Yi #0.1 103/ulNormal0.0-0.7The [facility] South CampusComment on above: Performed By: #### DATCBC #### [facility] [address] [place] [address] Dr. Joni Davilaosinophils/100 WBC (Bld)2.0 %Normal0.9-7.0[facility] Comment on above:Performed By: #### DATCBC #### [facility] [address] [place] [address] Dr. Yilan ChangErythrocyte distribution width (RBC) [Ratio]12.4 %Aowfmy49.0-15.0 [facility] South CampusComment on above:Performed By: #### DATCBC #### [facility] [address] [place] [address] Dr. Joni SandersHematocrit (Bld) [Volume fraction]43.7 %Ezrhxu95.0-54.0The [facility] CampusComment on above:Performed By: #### DATCBC #### [facility] [address] [place] [address] Dr. Joni SandersHemoglobin (Bld) [Mass/Vol]14.6 g/vXDmwnoa43.0-18.0The [facility] CampusComment on above:Performed By: #### DATCBC #### [facility] [address] [place] [address] Dr. Joni Cobb #0.02 10e3/ulNormal0.00-0.03[facility] on above:Performed By: #### DATCBC #### [facility] [address] [place] [address] Dr. Joni Cobb %0.3 %Normal0.0-0.5[facility] on above: Performed By: #### DATCBC #### [facility] [address] [place] [address] Dr. Joni RiveraH #2.0 103/ulNormal1.2-3.8The [facility]Com[facility] on above:Performed By: #### DATCBC #### [facility] [address] [place] [address] Dr. Joni Tamphocytes/100 WBC (Bld)33.3 %Zcuwam14.5-60.0The [facility] on above:Performed By: #### DATCBC #### [facility] [address] [place] [address] Dr. Joni Pedraza (RBC) [Entitic mass]32.6 omGgimly70.9-34.0The [facility] HospitalComment on above:Performed By: #### DATCBC #### [facility] [address] [place] [address] Dr. Joni WilliamHC (RBC) [Mass/Vol]33.4 g/iCViogru50.9-35.2The [facility] CampusComment on above:Performed By: #### DATCBC #### [facility] [address] [place] [address] Dr. Joni WilliamV (RBC) [Entitic vol]97.5 fLCritically high80.0-94.0The [facility] CampusComment on above:Performed By: #### DATCBC #### [facility] [address] [place] [address] Dr. Joni Esposito #0.6 103/ulNormal0.3-0.8The [facility] CampusComment on above:Performed By: #### DATCBC #### [facility] [address] [place] [address] Dr. Joni Thorpeocytes/100 WBC (Bld)9.8 %Normal1.7-12.0The [facility] Comment on above:Performed By: #### DATCBC #### [facility] [address] [place] [address] Dr. Joni Price #3.2 103/ulNormal1.4-6.5The [facility] CampusComment on above:Performed By: #### DATCBC #### [facility] [address] [place] [address] Dr. Joni Estebanophils/100 WBC (Bld)53.6 %Xamrdv07.0-75.0The [facility] CampusComment on above:Performed By: #### DATCBC #### [facility] [address] [place] [address] Dr. Joni Walshlet mean volume (Bld) [Entitic vol]9.9 fLNormal9.5-13.5The [facility] CampusComment on above:Performed By: #### DATCBC #### [facility] [address] [place] [address] Dr. Joni SandersPLT239 103/pjMxulbf278-463Zmj [facility] CampusComment on above: Performed By: #### DATCBC #### [facility] [address] [address] [address] Joni SandersRBC4.48 106/ulCritically low4.70-6.10The [facility] CampusComment on above:Performed By: #### DATCBC #### [facility] [address] [address] [address] Joni SandersWBC5.9 103/ulNormal4.0-11.0The [facility] CampusComment on above: Performed By: #### DATCBC #### [facility] [address] [address] [address] Joni Mills- BMP WITH LIPIDon 61-82-6589Wzjnx gap [Moles/Vol]12.7 mmol/L NormalThe [facility] CampusComment on above:Performed By: #### DATBMP #### [facility] [address] [place] [address] Dr. Joni SandersCalcium [Mass/Vol]9.0 mg/dLNormal8.5-10.1The [facility] Comment on above:Performed By: #### DATBMP #### [facility] [address] [place] [address] Dr. Joni SandersChloride [Moles/Vol]104 mmol/FZbgjcp89-065Hcu [facility] Comment on above:Performed By: #### DATBMP #### [facility] [address] [place] [address] Dr. Joni SandersCholesterol [Mass/Vol]188 mg/dLNormal<=200The [facility] Comment on above:Performed By: #### DATBMP #### [facility] [address] [place] [address] Dr. Joni Sahaesterol in HDL [Mass/Vol]45 mg/xUHpmfag91-71Lyy [facility] CampusComment on above:Performed By: #### DATBMP #### [facility] [address] [address] [address] Joni SandersCholesterol in LDL [Mass/Vol]102.2 mg/dLNoAdena Pike Medical CenterComment on above:Performed By: #### DATBMP #### [facility] [address] [address] [address] Joni SandersCO2 [Moles/Vol]27.7 mmol/JVtxyhv47.0-32.0The [facility] Comment on above:Performed By: #### DATBMP #### [facility] [address] [address] [address] Joni SandersCreatinine [Mass/Vol]1.00 mg/dLNormal0.70-1.30The [facility] CampusComment on above:Performed By: #### DATBMP #### [facility] [address] [place] [address] Dr. Joni DavilaGFR-AF MALDIVIAN>60Normal>=60The [facility] CampusComment on above:Performed By: #### DATBMP #### [facility] [address] [address] [address] Joni DavilaGFR-NON AF MALDIVIAN>60Normal>=60The [facility] CampusComment on above:Performed By: #### DATBMP #### [facility] [address] [address] [address] Joni SandersGlucose [Mass/Vol]107 mg/dLCritically yncu23-712Pfy [facility] CampusComment on above:Performed By: #### DATBMP #### [facility] [address] [address] [address] Joni SandersHDL NORMAL> or = 60 mg/dl - LOW CARDIOVASCULAR RISK <40 mg/dl - HIGH CARDIOVASCULAR RISKParkview Health Bryan HospitalComment on above:Performed By: #### DATBMP #### [facility] [address] [address] [address] Joni SandersLDL CALC NORMALSEE BELOWParkview Health Bryan HospitalComment on above:Result Comment: <100 mg/dl OPTIMAL 100 - 129 mg/dl NEAR OR ABOVE OPTIMAL 130 - 159 mg/dl BORDERLINE HIGH 160 - 189 mg/dl HIGH >190 mg/dl VERY HIGH Performed By: #### DATBMP #### [facility] [address] [address] [address] Joni SandersPotassium [Moles/Vol]4.4 mmol/LNormal3.5-5.1The [facility] Comment on above:Performed By: #### DATBMP #### [facility] [address] [address] [address] Joni SandersSodium [Moles/Vol]140 mmol/ZNvkzpq392-476Ljb [facility] Comment on above:Performed By: #### DATBMP #### [facility] [address] [place] [address] Dr. Joni SandersTriglyceride [Mass/Vol]204 mg/dLCritically high<=150The [facility] CampusComment on above:Performed By: #### DATBMP #### [facility] [address] [address] [address] Joni SandersUrea nitrogen [Mass/Vol]22.0 mg/dLCritically high7.0-18.0The [facility] CampusComment on above:Performed By: #### DATBMP #### [facility] [address] [place] [address] Dr. Joni SandersUrea nitrogen/Creatinine [Mass ratio]22.0 mg/mgNoAdena Pike Medical CenterComment on above:Performed By: #### DATBMP #### [facility] [address] [place] [address] Dr. Joni SandersVLDL CALC40.8 mg/dLNoAdena Pike Medical CenterComment on above: Performed By: #### DATBMP #### [facility] [address] [place] [address] Dr. Joni Sanders Vital Signs Date TimeVital SignValuePerforming [id number] 11:Body iqyjxw985.9 cmSteven Rusher DPM Work Phone: [facility] HospitalDlbzucahpt50-86-4554 11:17-0400Body mass index (BMI) [Ratio]25.58 kg/a3Ogzjlz Rusher DPM Work Phone: [phone] [place], [place] 4723010-09-2025 11:17-0400Body ryovmp17.55 kgSteven Rusher DPM Work Phone: [phone] [place], [place] 4723010-01-2025 10:20-0400Body ttgysl480.9 cmSteven Rusher DPM Work Phone: [phone] [place], [place] 4723010-01-2025 10:20-0400Body mass index (BMI) [Ratio]25.58 kg/b3Kyjcce Rusher DPM Work Phone: [phone] [place], [place] 4723010-01-2025 10:20-0400Body dvyqzu83.55 kgSteven Rusher DPM Work Phone: [phone] [place], [place] 4723009-26-2025 08:48-0400Body rfyhwn937.9 cmSteven Rusher DPM Work Phone: [phone] [place], [place] 4723009-26-2025 08:48-0400Body mass index (BMI) [Ratio]25.58 kg/u7Oscgek Rusher DPM Work Phone: [phone] [place], [place] 4723009-26-2025 08:48-0400Body .55 kgSteven Rusher DPM Work Phone: [phone] [place], [place] 4723009-11-2025 10:02-0400Body sifgsm973.9 cmZabrina Suarez MD Work Phone: TMartin [facility] HospitalOyvgim60-38-7629 10:02-0400Body mass index (BMI) [Ratio]26.01 kg/b0ZcsuxvZabrina Suarez MD Work Phone: VMartin [facility] HospitalZgqdcv48-04-3035 10:02-0400Body azklbe15 kg Zabrina Suarez MD Work Phone: AMart[facility] HospitalByadzq29-04-8096 10:02-0400Diastolic blood nezqdgzn15 mm[Hg]Zabrina Suarez MD Work Phone: YMartin [facility] HospitalLeybnm29-10-9182 10:02-0400Heart rate91 /min Zabrina Suarez MD Work Phone: [facility]and Pmdfnd64-05-7254 10:02-0400Systolic blood wvijbkrl920 mm[Hg]Zabrina Suarez MD Work Phone: [facility]and Lklghj65-21-2482 13:02-0400Body iefomd695.9 Alhaji Hopper MD Work Phone: [facility]and Ykgulm11-83-0713 13:02-0400Body mass index (BMI) [Ratio]25.09 kg/t6IitjshobqmJose Antonio Hopper MD Work Phone: [facility]and Zhojnu33-80-2976 13:02-0400Body temperature 98.6 [degF]Jose Antonio Hopper MD Work Phone: [facility] Tqvwrt28-74-1848 13:02-0400Body khissz59.92 kgJose Antonio Hopper MD Work Phone: [facility]and Rogbbq96-72-6779 13:02-0400Diastolic blood xnhpenaq94 mm[Hg]Jose Antonio Hopper MD Work Phone: [facility] Pexcsf42-23-4578 13:02-0400Heart rate86 /min Jose Antonio Hopper MD Work Phone: [facility] Rzthiu41-17-3068 13:02-0400Respiratory rate 17 /minJose Antonio Hopper MD Work Phone: [facility]and Cvxyhq84-99-0633 13:02-6655WoF9% (BldA) [Mass fraction]96 %Jose Antonio Hopper MD Work Phone: [place] Gjiydy95-19-2513 13:02-0400Systolic blood byzailfy193 mm[Hg]Jose Antonio Hopper MD Work Phone: [facility]and Khioqp33-09-0851 09:04-0400Body mass index (BMI) [Ratio]25.35 kg/o4Xiwbk Riggs MD Work Phone: [phone]07-28-2025 09:04-0400Body temperature 98.01 [degF]Triston Riggs MD Work Phone: [facility]07-28-2025 09:04-0400Body ciqbli09.8 kgTriston Riggs MD Work Phone: [phone]07-28-2025 09:04-0400Diastolic blood qkzeeqtf01 mm[Hg]Triston Riggs MD Work Phone: [phone]07-28-2025 09:04-0400Heart rate85 /min Triston Riggs MD Work Phone: [facility]07-28-2025 09:04-0400Respiratory rate 16 /minTriston Riggs MD Work Phone: [phone]07-28-2025 09:04-7481XwK6% (BldA) [Mass fraction]86 %Triston Riggs MD Work Phone: [facility]07-28-2025 09:04-0400Systolic blood ukyeztke175 mm[Hg]Triston Riggs MD Work Phone: [facility]06-09-2025 22:15-0400Body temperature 97.2 [degF]Triston Riggs MD Work Phone: [phone]06-09-2025 22:15-0400Diastolic blood qkcdsqoi29 mm[Hg]Triston Riggs MD Work Phone: [phone]06-09-2025 22:15-0400Heart rate88 /min Triston Riggs MD Work Phone: [facility]06-09-2025 22:15-0400Respiratory rate 16 /minTriston Riggs MD Work Phone: [facility]06-09-2025 22:15-7758YuI8% (BldA) [Mass fraction]98 %Triston Riggs MD Work Phone: [facility]06-09-2025 22:15-0400Systolic blood mytkdcur796 mm[Hg]Triston Riggs MD Work Phone: [facility]06-06-2025 09:04-0400Body obptwv819.9 cmNageneva Mendiola MD Work Phone: [facility]06-06-2025 09:04-0400Body mass index (BMI) [Ratio]23.46 kg/s7VaxqxxiZac Mendiola MD Work Phone: [facility]06-06-2025 09:04-0400Body ailuwl99.47 kgNageneva Mendiola MD Work Phone: [facility]06-06-2025 09:04-0400Diastolic blood mm[Hg]Zac Mendiola MD Work Phone: [facility]06-06-2025 09:04-0400Heart rate64 /min Zac Mendiola MD Work Phone: [facility]06-06-2025 09:04-4858QpY3% (BldA) [Mass fraction]99 %Zac Mendiola MD Work Phone: [facility]06-06-2025 09:04-0400Systolic blood blxvvyso585 mm[Hg]Zac Mendiola MD Work Phone: [facility]06-05-2025 13:58-0400Body temperature 96.8 [degF]Triston Riggs MD Work Phone: [facility]06-05-2025 13:58-0400Diastolic blood yzknwkgd24 mm[Hg]Triston Riggs MD Work Phone: [facility]06-05-2025 13:58-0400Heart rate81 /min Triston Riggs MD Work Phone: [facility]06-05-2025 13:58-0400Respiratory rate 16 /minTriston Riggs MD Work Phone: [facility]06-05-2025 13:58-5139KoD0% (BldA) [Mass fraction]97 %Triston Riggs MD Work Phone: [facility]06-05-2025 13:58-0400Systolic blood zymowcki121 mm[Hg]Triston Riggs MD Work Phone: [facility]05-30-2025 13:02-0400Body mvamrl974.9 Alhaji Hopper MD Work Phone: [facility] Kjeozx87-41-1536 13:02-0400Body mass index (BMI) [Ratio]26.99 kg/x2AmmvzwtyhcJose Antonio Hopper MD Work Phone: cMartin [facility] HospitalXjokso15-88-8110 13:02-0400Body temperature 98.6 [degF]Jose Antonio Hopper MD Work Phone: cMartin [facility] HospitalUlteqq79-23-2742 13:02-0400Body ewjmvw72.27 kgJose Antonio Hopper MD Work Phone: cMartin [facility] HospitalVzkorx52-38-7635 13:02-0400Diastolic blood nognntse83 mm[Hg]Jose Antonio Hopper MD Work Phone: [facility] Cyfivx45-98-1938 13:02-0400Heart rate81 /min Jose Antonio Hopper MD Work Phone: [facility] Xcenog53-91-5145 13:02-0400Respiratory rate 16 /minJose Antonio Hoppre MD Work Phone: [facility] Xfhpaw96-78-2881 13:02-5965GvJ4% (BldA) [Mass fraction]96 %Jose Antonio Hopper MD Work Phone: [facility] Pxaftb80-53-7687 13:02-0400Systolic blood mm[Hg]Jose Antonio Hopper MD Work Phone: [phone] Health Springfield [facility] Medical CenterNlewse24-86-3851 08:44-0400Body .9 cmZabrina Suarez MD Work Phone: VlevelMer[facility] Medical CenterVbltjx04-21-4911 08:44-0400Body mass index (BMI) [Ratio]27.12 kg/u1CayonbZabrina Suarez MD Work Phone: CMartin [facility] HospitalPoirze64-55-6394 08:44-0400Body temperature 97.9 [degF]Zabrina Suarez MD Work Phone: VMartin [facility] HospitalEfgjll42-90-9802 08:44-0400Body .7 kgZabrina Suarez MD Work Phone: JlevelMer[facility] Regional Medical CenterPgbzxp87-18-0153 08:44-0400Diastolic blood mm[Hg]Zabrina Suarez MD Work Phone: SMartin [facility] HospitalSeoxqs73-19-8009 08:44-0400Heart rate83 /min Zabrina Suarez MD Work Phone: ZMartin [facility] HospitalMbtfph50-40-7540 08:44-0400Systolic blood gputgfzj425 mm[Hg]Zabrina Suarez MD Work Phone: BlevelMer[facility] Medical CenterArhvdu34-93-8798 14:34-0400Body wmevxk006.9 Kathia Ly APRN.[employer] Work Phone: [facility]04-30-2025 14:34-0400Body mass index (BMI) [Ratio]26.72 kg/s2YuiyzibXiomara Ly APRN.[employer]IATE Work Phone: [facility]04-30-2025 14:34-0400Body temperature 97.2 [degF]Xiomara Ly APRN.[employer] PRO[employer]OCIATE Work Phone: [facility]04-30-2025 14:34-0400Body sepcdg19.36 kgXiomara Ly APRN.[employer] PRO[employer]OCIATE Work Phone: [facility]04-30-2025 14:34-0400Diastolic blood otfawcea51 mm[Hg]Xiomara Malachi MANAGER CODE.[employer] PRO[employer]OCIATE Work Phone: [phone]04-30-2025 14:34-0400Heart rate84 /min Xiomara Ly MANAGER CODE.[employer] PRO[employer]OCIATE Work Phone: [phone] [address]-30-2025 14:34-5612XjK8% (BldA) [Mass fraction]95 %Xiomara Ly MANAGER CODE.[employer] PRO[employer]OCIATE Work Phone: [phone]04-30-2025 14:34-0400Systolic blood oxbaeslv880 mm[Hg]Xiomara Ly MANAGER CODE.[employer] PRO[employer]OCIATE Work Phone: [phone]04-30-2025 12:51-0400Body temperature 96.8 [degF]Triston Riggs MD Work Phone: [phone]04-30-2025 12:51-0400Diastolic blood ixnpufqa62 mm[Hg]Triston Riggs MD Work Phone: [phone]04-30-2025 12:51-0400Heart rate88 /min Triston Riggs MD Work Phone: [phone]04-30-2025 12:51-0400Respiratory rate 16 /minTriston Riggs MD Work Phone: [phone] [address]-30-2025 12:51-4453TjF6% (BldA) [Mass fraction]98 %Triston Riggs MD Work Phone: [phone] [address]-30-2025 12:51-0400Systolic blood rlssjlad204 mm[Hg]Triston Riggs MD Work Phone: [phone] [address]-11-2025 12:20-0400Heart rate67 /min Shay Dennis MD Work Phone: [phone] [address]-11-2025 12:20-0400Respiratory rate 16 /minShay Dennis MD Work Phone: [phone] [address]-11-2025 12:20-5567HqG1% (BldA) [Mass fraction]99 %Shay Dennis MD Work Phone: [facility]04-11-2025 12:10-0400Diastolic blood soisigqy96 mm[Hg]Shay Dennis MD Work Phone: [facility]04-11-2025 12:10-0400Systolic blood ifddnnxf197 mm[Hg]Shay Dennis MD Work Phone: [facility]04-11-2025 11:47-0400Body temperature 96.8 [degF]Shay Dennis MD Work Phone: [facility]04-11-2025 10:49-0400Body .9 Madelyn Dennis MD Work Phone: [facility]04-11-2025 10:49-0400Body mass index (BMI) [Ratio]26.45 kg/e5YkegxgShay Dennis MD Work Phone: [facility]04-11-2025 10:49-0400Body nkirlj07.45 kgShay Dennis MD Work Phone: [facility]03-28-2025 12:11-0400Body nfxikc459.88 [facility] 12:11-0400Body mass index (BMI) [Ratio]27.3 kg/m3OizuozzjlBer[facility]03-28-2025 12:11-0400Body svxyhl05.28 kg[facility]03-28-2025 12:11-0400Diastolic blood agmgnmdv70 mm[Hg][facility]03-28-2025 12:11-0400 Heart rate88 /[facility]03-28-2025 12:11-0400 Respiratory rate12 /[facility]03-28-2025 12:11-0400 Systolic blood fhiewolp205 mm[Hg][facility]03-21-2025 13:30-0400Body qxpxav866.9 Alhaji Hopper MD Work Phone: cMartin [facility] HospitalOmgnip50-76-0278 13:30-0400Body mass index (BMI) [Ratio]25.36 kg/q0CruikhmherJose Antonio Hopper MD Work Phone: [facility] Rihmyq09-38-8757 13:30-0400Body temperature 98.6 [degF]Jose Antonio Hopper MD Work Phone: [facility] Fdqhlr99-55-5916 13:30-0400Body efmzme58.82 kgJose Antonio Hopper MD Work Phone: [facility] Lphfvy47-67-1708 13:30-0400Diastolic blood boznaufu26 mm[Hg]Jose Antonio Hopper MD Work Phone: [facility] Rslqbs55-18-1163 13:30-0400Heart rate77 /min Jose Antonio Hopper MD Work Phone: [facility] Cbwnme23-95-3963 13:30-0400Respiratory rate 15 /minJose Antonio Hopper MD Work Phone: [facility] Otabfy46-59-5832 13:30-8217NuM5% (BldA) [Mass fraction]96 %Jose Antonio Hopper MD Work Phone: [facility] Xwkcjw18-70-9157 13:30-0400Systolic blood kdudlovo030 mm[Hg]Jose Antonio Hopper MD Work Phone: [facility] Kjxjxe27-95-7712 10:43-0400Body cwjthy185.9 cmSue Murillo MD Work Phone: [facility]03-10-2025 10:43-0400Body mass index (BMI) [Ratio]25.44 kg/t2VzlfqwSue Murillo MD Work Phone: [facility]03-10-2025 10:43-0400Body temperature 97.9 [degF]Sue Murillo MD Work Phone: [facility]03-10-2025 10:43-0400Body .09 kgSue Murillo MD Work Phone: [facility]03-10-2025 10:43-0400Diastolic blood mm[Hg]Sue Murillo MD Work Phone: [facility]03-10-2025 10:43-0400Heart rate78 /min Sue Murillo MD Work Phone: [facility]03-10-2025 10:43-7175UqF1% (BldA) [Mass fraction]96 %Sue Murillo MD Work Phone: [facility]03-10-2025 10:43-0400Systolic blood mm[Hg]Seu Murillo MD Work Phone: [facility]03-04-2025 14:09-0500Body tjpwga833.9 cmCmichelle Barragan MANAGER CODE.[employer]OCIATE Work Phone: [place] Aieyiy02-35-4478 14:09-0500Body mass index (BMI) [Ratio]26.42 kg/t5GgiipDella Barragan MANAGER CODE.[employer] PRO[employer]OCIATE Work Phone: [place] Ixmnfv05-02-9392 14:09-0500Body temperature 98.2 [degF]Della Barragan MANAGER CODE.[employer] PROGRAM ASSOCIATE Work Phone: [place] Cxxwdx23-59-2417 14:09-0500Body .36 kgDella Barragan MANAGER CODE.[employer] PROGRAM ASSOCIATE Work Phone: [place] Kqbpor47-65-6711 14:09-0500Diastolic blood ziabqlci54 mm[Hg]Della Barragan MANAGER CODE.[employer] PROGRAM ASSOCIATE Work Phone: [place] Tlzqea22-32-4815 14:09-0500Heart rate82 /min Della Barragan APRN.[employer] PROGRAM ASSOCIATE Work Phone: [place] Lujoxc58-50-4314 14:09-0500Respiratory rate 14 /minDella Barragan APRN.[employer] PROGRAM ASSOCIATE Work Phone: [place] Ltflij59-58-1894 14:09-7642PnL1% (BldA) [Mass fraction]98 %Della Barragan MANAGER CODE.[employer] PROGRAM ASSOCIATE Work Phone: [place] Ykbctx01-14-5055 14:09-0500Systolic blood rzwvzakp255 mm[Hg]Della Barragan MANAGER CODE.[employer] PROGRAM ASSOCIATE Work Phone: [place] Esvofs67-45-1761 13:27-0500Body aruzqx932.9 Alhaji Hopper MD Work Phone: [facility] Luwhpj99-66-3367 13:27-0500Body mass index (BMI) [Ratio]26.31 kg/m9QzdlzoiuxrJose Antonio Hopper MD Work Phone: [facility] Jajnze80-29-3725 13:27-0500Body temperature 98.6 [degF]Jose Antonio Hopper MD Work Phone: [facility] Pkkptp59-86-1092 13:27-0500Body arsvgg47 kg Jose Antonio Hopper MD Work Phone: [facility] Qoyfsd57-56-7852 13:27-0500Diastolic blood nhiheesi94 mm[Hg]Jose Antonio Hopper MD Work Phone: [facility] Fxpcam54-41-9331 13:27-0500Heart rate75 /min Jose Antonio Hopper MD Work Phone: [facility] Blgzny24-94-6630 13:27-0500Respiratory rate 16 /minJose Antonio Hopper MD Work Phone: [facility] Yxerkx83-49-6808 13:27-8328PxZ0% (BldA) [Mass fraction]98 %Jose Antonio Hopper MD Work Phone: [facility] Hslyrr50-45-2739 13:27-0500Systolic blood cxsgphgy807 mm[Hg]Jose Antonio Hopper MD Work Phone: [facility] Hthxbd81-50-4588 12:49-0500Body temperature 97.2 [degF]Triston Riggs MD Work Phone: [facility]02-03-2025 12:49-0500Diastolic blood nclhrtua34 mm[Hg]Triston Riggs MD Work Phone: [facility]02-03-2025 12:49-0500Heart rate89 /min Triston Riggs MD Work Phone: [facility]02-03-2025 12:49-0500Respiratory rate 16 /minTriston Riggs MD Work Phone: [facility]02-03-2025 12:49-6521EmN6% (BldA) [Mass fraction]97 %Triston Riggs MD Work Phone: [facility]02-03-2025 12:49-0500Systolic blood hhxlszec414 mm[Hg]Triston Riggs MD Work Phone: [facility]01-28-2025 16:31-0500[facility]dopo252.88 [facility] 16:31-0500Body mass index (BMI) [Ratio]25.6 kg/z5ZgdmjiiloBer[facility]01-28-2025 16:31-0500Body xqwthtxyskq96.1 [degF][facility]01-28-2025 16:31-0500Body oopijr56.78 [facility] 16:31-0500Diastolic blood jmabsykv32 mm[Hg][facility]01-28-2025 16:31-0500 Heart rate87 /[facility]01-28-2025 16:31-0500 Respiratory rate12 /[facility]01-28-2025 16:31-0500 Systolic blood trabjjex645 mm[Hg][facility]01-06-2025 09:15-0500Body ddxrchjfmde39 [degF]Triston Riggs MD Work Phone: [facility]01-06-2025 09:15-0500Diastolic blood xretemzp67 mm[Hg]Triston Riggs MD Work Phone: [facility]01-06-2025 09:15-0500Heart rate91 /min Triston Riggs MD Work Phone: [facility]01-06-2025 09:15-0500Respiratory rate 16 /minTriston Riggs MD Work Phone: [facility]01-06-2025 09:15-4776DaM9% (BldA) [Mass fraction]98 %Triston Riggs MD Work Phone: [facility]01-06-2025 09:15-0500Systolic blood fqmwskot583 mm[Hg]Triston Riggs MD Work Phone: [facility]12-27-2024 14:15-0500Body zagdfx536.9 Alhaji Hopper MD Work Phone: c[facility] HospitalKlkjje29-54-3008 14:15-0500Body mass index (BMI) [Ratio]25.63 kg/c4DcwceftzloJose Antonio Hopper MD Work Phone: c[facility] HospitalKyucdg02-78-2069 14:15-0500Body temperature 98.6 [degF]Jose Antonio Hopper MD Work Phone: c[facility] HospitalCzuhlq27-02-7664 14:15-0500Body autzxs16.73 kgJose Antonio Hopper MD Work Phone: c[facility] HospitalDgpjxj45-49-9021 14:15-0500Diastolic blood jkmyynhn55 mm[Hg]Jose Antonio Hopper MD Work Phone: [facility] Foxqpo31-31-8573 14:15-0500Heart rate83 /min Jose Antonio Hopper MD Work Phone: [facility] Tybutx56-49-1749 14:15-0500Respiratory rate 16 /minJose Antonio Hopper MD Work Phone: c[facility] HospitalWaujhj08-49-9272 14:15-1633VjI0% (BldA) [Mass fraction]98 %Jose Antonio Hopper MD Work Phone: [place] Veckvh28-93-8117 14:15-0500Systolic blood kmcaxbhx717 mm[Hg]Jose Antonio Hopper MD Work Phone: c[facility] HospitalMssxtv04-30-4125 12:22-0500Body .9 cmSteffen Villa MD Work Phone: c[facility] HospitalLutyjm69-12-7266 12:22-0500Body mass index (BMI) [Ratio]25.3 kg/p5DopyeaSteffen Villa MD Work Phone: [phone] Memorial HospitalIofgni81-29-6916 12:22-0500Body temperature 97.9 [degF]Steffen Villa MD Work Phone: [phone] Memorial HospitalDqkzna62-88-8983 12:22-0500Body .6 kgSteffen Villa MD Work Phone: [phone] Memorial HospitalDwrarl29-16-8453 12:22-0500Diastolic blood mm[Hg]Steffen Villa MD Work Phone: [phone] Memorial HospitalKzhqlr16-64-5161 12:22-0500Heart rate78 /min Steffen Villa MD Work Phone: [phone] Memorial HospitalSbplzd56-07-4538 12:22-0500Systolic blood ktqodyjt556 mm[Hg]Steffen Villa MD Work Phone: [phone] Memorial HospitalHjcqfh01-63-5078 16:01-0500Body hiabpo377.9 cmSue Murillo MD Work Phone: [phone]12-10-2024 16:01-0500Body mass index (BMI) [Ratio]25.23 kg/t5VwhleiSue Murillo MD Work Phone: [phone]12-10-2024 16:01-0500Body temperature 97.2 [degF]Sue Murillo MD Work Phone: [phone]12-10-2024 16:01-0500Body ftulwh88.37 kgSue Murillo MD Work Phone: [phone]12-10-2024 16:01-0500Diastolic blood qxmrehyl15 mm[Hg]Sue Murillo MD Work Phone: [phone]12-10-2024 16:01-0500Heart rate81 /min Sue Murillo MD Work Phone: [phone]12-10-2024 16:01-1389HfG9% (BldA) [Mass fraction]98 %Sue Murillo MD Work Phone: [phone]12-10-2024 16:01-0500Systolic blood vfoimwgl657 mm[Hg]Sue Murillo MD Work Phone: [phone]12-02-2024 10:30-0500Body mass index (BMI) [Ratio]28.4 kg/b5BsvxpedLouise Cesar MD Work Phone: [facility]12-02-2024 10:30-0500Body temperature 97.81 [degF]Louise Cesar MD Work Phone: [facility]12-02-2024 10:30-0500Body lflomx34 kg Louise Cesar MD Work Phone: [phone]12-02-2024 10:30-0500Diastolic blood eengvjsc03 mm[Hg]Louise Cesar MD Work Phone: [facility]12-02-2024 10:30-0500Heart rate76 /min Louise Cesar MD Work Phone: [facility]12-02-2024 10:30-3742XuQ0% (BldA) [Mass fraction]96 %Louise Cesar MD Work Phone: [facility]12-02-2024 10:30-0500Systolic blood whgoawcd489 mm[Hg]Louise Cesar MD Work Phone: [facility]11-27-2024 10:27-0500Body huwvyg124.9 Alhaji Hopper MD Work Phone: c[facility] HospitalUbbdex13-50-9298 10:27-0500Body mass index (BMI) [Ratio]28.35 kg/d7IrodtsrnbxJose Antonio Hopper MD Work Phone: c[facility] HospitalGijzat54-15-0982 10:27-0500Body temperature 98.6 [degF]Jose Antonio Hopper MD Work Phone: c[facility] HospitalWptxwr00-58-9584 10:27-0500Body .8 kgJose Antonio Hopper MD Work Phone: c[facility] HospitalInalcj12-37-6665 10:27-0500Diastolic blood hovxfeyg19 mm[Hg]Jose Antonio Hopper MD Work Phone: c[facility] HospitalCznicd16-51-2198 10:27-0500Heart rate75 /min Jose Antonio Hopper MD Work Phone: c[facility] HospitalXotmgz93-80-8416 10:27-0500Respiratory rate 16 /minJose Antonio Hopper MD Work Phone: [facility] Jlwype55-57-5367 10:27-6497TcN5% (BldA) [Mass fraction]98 %Jose Antonio Hopper MD Work Phone: [facility] Msgtwo89-38-9906 10:27-0500Systolic blood xdqxbyvt060 mm[Hg]Jose Antonio Hopper MD Work Phone: [facility] Swupdb34-33-9494 12:30-0500Diastolic blood jgfxondi26 mm[Hg]Vic Ponce MD Work Phone: c[facility] HospitalIhsqqq30-49-6102 12:30-0500Heart rate85 /min Vic Ponce MD Work Phone: c[facility] HospitalUnmgeu94-61-5610 12:30-0500Respiratory rate 21 /minEjonathan Ponce MD Work Phone: c[facility] HospitalKvzvni37-03-2699 12:30-7418ZcR1% (BldA) [Mass fraction]98 %Vic Ponce MD Work Phone: c[facility] HospitalEjatno44-94-1996 12:30-0500Systolic blood ihmgpqhc672 mm[Hg]Vic Ponce MD Work Phone: c[facility] HospitalAeemup35-65-0222 12:02-0500Body temperature 99.1 [degF]Vic Ponce MD Work Phone: c[facility] HospitalIrngnh32-20-7249 11:48-0500Body lcpjci476.3 cmSue Murillo MD Work Phone: [facility]11-04-2024 11:48-0500Body mass index (BMI) [Ratio]29.18 kg/l8YvesdjSue Murillo MD Work Phone: [facility]11-04-2024 11:48-0500Body xvjkly79.89 kgSue Murillo MD Work Phone: [facility]11-04-2024 11:48-0500Diastolic blood maxsqdvl85 mm[Hg]Sue Murillo MD Work Phone: [phone]11-04-2024 11:48-0500Heart rate89 /min Sue Murillo MD Work Phone: [facility]11-04-2024 11:48-9408DqA3% (BldA) [Mass fraction]97 %Sue Murillo MD Work Phone: [facility]11-04-2024 11:48-0500Systolic blood wdklvpod582 mm[Hg]Sue Murillo MD Work Phone: [facility]10-14-2024 09:26-0400Body moohhi918.3 cmSteffen Villa MD Work Phone: [phone] Memorial HospitalOhnspg46-84-9583 09:26-0400Body mass index (BMI) [Ratio]28.9 kg/v9SxjxpuSteffen Villa MD Work Phone: [phone] Memorial HospitalZfvdrp64-56-6317 09:26-0400Body temperature 97.7 [degF]Steffen Villa MD Work Phone: [phone] Memorial HospitalYroyhr82-12-2701 09:26-0400Body kg Steffen Villa MD Work Phone: [phone] Memorial HospitalJzlqwr52-20-1728 09:26-0400Diastolic blood mgnlozch28 mm[Hg]Steffen Villa MD Work Phone: [phone] Memorial HospitalKmhsso46-88-8000 09:26-0400Heart rate92 /min Steffen Villa MD Work Phone: [phone] Memorial HospitalKkpvqa01-69-5895 09:26-0400Systolic blood blbhsgur995 mm[Hg]Steffen Villa MD Work Phone: c[facility] HospitalHzwqzx43-93-4250 13:48-0400Body cuhhll520.8 cmRuma Shultzvarella PA-C Work Phone: [facility]10-01-2024 13:48-0400Body mass index (BMI) [Ratio]29.83 kg/t3NbmbhzRuma Shultzvarella PA-C Work Phone: [facility]10-01-2024 13:48-0400Body temperature 97.3 [degF]Ruma Oshea PA-C Work Phone: [facility]10-01-2024 13:48-0400Body dmupsw24.3 kgRuma Shultzvarella PA-C Work Phone: [facility]10-01-2024 13:48-0400Diastolic blood ajlgheji72 mm[Hg]Ruma Duránella PA-C Work Phone: [facility]10-01-2024 13:48-0400Heart rate88 /min Ruma Duránella PA-C Work Phone: [facility]10-01-2024 13:48-0400Respiratory rate 16 /minRuma Duránella PA-C Work Phone: [facility]10-01-2024 13:48-3545HgN9% (BldA) [Mass fraction]98 %Ruma Duránella PA-C Work Phone: [facility]10-01-2024 13:48-0400Systolic blood dgqjtewk033 mm[Hg]Ruma Duránella PA-C Work Phone: [facility]10-01-2024 10:24-0400Body mass index (BMI) [Ratio]27.8 kg/z1YaygycwLouise Cesar MD Work Phone: [facility]10-01-2024 10:24-0400Body nfnkpu13.99 kgLouise Cesar MD Work Phone: [facility]10-01-2024 10:24-0400Diastolic blood lfteinda84 mm[Hg]Louise Cesar MD Work Phone: [facility]10-01-2024 10:24-0400Heart rate82 /min Louise Cesar MD Work Phone: [facility]10-01-2024 10:24-6099JeF2% (BldA) [Mass fraction]98 %Louise Cesar MD Work Phone: [facility]10-01-2024 10:24-0400Systolic blood fuenzywh742 mm[Hg]Louise Cesar MD Work Phone: [facility]08-28-2024 13:08-0400Body .9 cmYehuda Dial MD Work Phone: [place] [address]-28-2024 13:08-0400Body mass index (BMI) [Ratio]27.67 kg/a0WfochgtYehuda Dial MD Work Phone: [place] [address]-28-2024 13:08-0400Body zekcgg02.53 kgYehuda Dial MD Work Phone: [place] [address]-28-2024 13:08-0400Diastolic blood iagejwpj78 mm[Hg]Yehuda Dial MD Work Phone: [place] [address]-28-2024 13:08-0400Systolic blood xrsfeuhl476 mm[Hg]Yehuda Dial MD Work Phone: [place] [address]-28-2024 10:38-0400Body odzeap562.9 Alhaji Hopper MD Work Phone: [place] [address]-28-2024 10:38-0400Body mass index (BMI) [Ratio]27.67 kg/t5DdglohjpedJose Antonio Hopper MD Work Phone: [place] [address]-28-2024 10:38-0400Body temperature 98.6 [degF]Jose Antonio Hopper MD Work Phone: [place] [address]-28-2024 10:38-0400Body .53 kgJose Antonio Hopper MD Work Phone: [place] [address]-28-2024 10:38-0400Diastolic blood qavxsxde12 mm[Hg]Jose Antonio Hopper MD Work Phone: [place] [address]-28-2024 10:38-0400Heart rate86 /min Jose Antonio Hopper MD Work Phone: [place] [address]-28-2024 10:38-0400Respiratory rate 18 /minJose Antonio Hopper MD Work Phone: [place] [address]-28-2024 10:38-7668YoX4% (BldA) [Mass fraction]98 %Jose Antonio Hopper MD Work Phone: [place] Bqwylf58-54-6627 10:38-0400Systolic blood xgdqasjb609 mm[Hg]Jose Antonio Hopper MD Work Phone: [place] Qtkhga74-23-1928 13:32-0400Body xbuxde899.9 [facility] MANAGER CODE.[employer] Work Phone: [phone]08-20-2024 13:32-0400Body mass index (BMI) [Ratio]27.12 kg/l0DgtaeqjwDelaware Hospital For The [facility]ically Ill MANAGER CODE.[employer] Work Phone: [phone] [address]-20-2024 13:32-0400Body temperature 97.11 [degF][facility] MANAGER CODE.[employer] Work Phone: [facility]08-20-2024 13:32-0400Body udvvok00.7 kgDel[facility] MANAGER CODE.[employer] Work Phone: [facility]08-20-2024 13:32-0400Diastolic blood pbkvnfyq94 mm[Hg][facility] MANAGER CODE.[employer] Work Phone: [phone] [address]-20-2024 13:32-0400Heart rate75 /min [facility] MANAGER CODE.[employer] Work Phone: [place] [address]-20-2024 13:32-0400Respiratory rate 16 /minDel[facility] MANAGER CODE.[employer] Work Phone: [phone] [address]-20-2024 13:32-0809ApY2% (BldA) [Mass fraction]95 %[facility] MANAGER CODE.[employer] Work Phone: [phone] [address]-20-2024 13:32-0400Systolic blood xvfumtkk743 mm[Hg][facility] MANAGER CODE.[employer] Work Phone: [place] [address]-31-2024 11:36-0400Body jubono390.9 cmVjuan francisco Hopper MD Work Phone: [place] [address]-31-2024 11:36-0400Body mass index (BMI) [Ratio]29.02 kg/i0VxtimlnwwqJose Antonio Hopper MD Work Phone: [place] [address]-31-2024 11:36-0400Body temperature 98.6 [degF]Jose Antonio Hopper MD Work Phone: [place] [address]-31-2024 11:36-0400Body ynfycz76.07 kgJose Antonio Hopper MD Work Phone: [place] [address]-31-2024 11:36-0400Diastolic blood keuybgjb38 mm[Hg]Jose Antonio Hopper MD Work Phone: [place] [address]-31-2024 11:36-0400Heart rate80 /min Jose Antonio Hopper MD Work Phone: [place] [address]-31-2024 11:36-0400Respiratory rate 16 /minJose Antonio Hopper MD Work Phone: [place] [address]-31-2024 11:36-6511OtH5% (BldA) [Mass fraction]96 %Jose Antonio Hopper MD Work Phone: [place] [address]-31-2024 11:36-0400Systolic blood frtkoqap700 mm[Hg]Jose Antonio Hopper MD Work Phone: [place] [address]-22-2024 15:28-0400Body abadsx451.9 cmYehuda Dial MD Work Phone: [phone]22-2024 15:28-0400Body mass index (BMI) [Ratio]29.02 kg/x4EelzaacYehuda Dial MD Work Phone: [place] [address]-22-2024 15:28-0400Body umgvnr27.07 kgYehuda Dial MD Work Phone: [facility]07-22-2024 15:28-0400Diastolic blood dqlanzva66 mm[Hg]Yehuda Dial MD Work Phone: [place] [address]-22-2024 15:28-0400Systolic blood uvilauyw113 mm[Hg]Yehuda Dial MD Work Phone: [place] [address]-22-2024 13:36-0400Body kgmmuk453.9 cmRuma Zavarella PA-C Work Phone: [place] [address]-22-2024 13:36-0400Body mass index (BMI) [Ratio]29.08 kg/p7Uypbcf Zavarella PA-C Work Phone: [place] [address]-22-2024 13:36-0400Body temperature 97.2 [degF]Ruma Zavarella PA-C Work Phone: [place] [address]-22-2024 13:36-0400Body giqmau99.25 kgRuma Zavarella PA-C Work Phone: [place] [address]-22-2024 13:36-0400Diastolic blood cqryouip65 mm[Hg]Ruma Zavarella PA-C Work Phone: [place] [address]-22-2024 13:36-0400Heart rate80 /min Ruma Zavarella PA-C Work Phone: [place] [address]-22-2024 13:36-0400Respiratory rate 16 /minRuma Zavarella PA-C Work Phone: [place] [address]-22-2024 13:36-1124MiR9% (BldA) [Mass fraction]96 %Ruma Zavarella PA-C Work Phone: [place] [address]-22-2024 13:36-0400Systolic blood mm[Hg]Ruma Oshea PA-C Work Phone: [facility]07-05-2024 13:33-0400Body ehrfan818.9 cmDel[facility] MANAGER CODE.[facility] Work Phone: [facility]07-05-2024 13:33-0400Body mass index (BMI) [Ratio]31.33 kg/b5VdszxtnxDelaware Hospital For The [facility]ically [facility] MANAGER CODE.[facility] Work Phone: [phone]07-05-2024 13:33-0400Body temperature 97.3 [degF][facility] MANAGER CODE.[facility] Work Phone: [phone]07-05-2024 13:33-0400Body jedhjp255.78 kgDel[facility] MANAGER CODE.[facility] Work Phone: [facility]07-05-2024 13:33-0400Respiratory rate 18 /minDelaware [facility] For The [facility] MANAGER CODE.[facility] Work Phone: [phone]07-05-2024 13:33-1550TvW4% (BldA) [Mass fraction]100 %[facility] MANAGER CODE.[facility] Work Phone: [facility]06-28-2024 13:40-0400Body tzatyg424.9 cmDel[facility] MANAGER CODE.[facility] Work Phone: [phone]06-28-2024 13:40-0400Body mass index (BMI) [Ratio]31.1 kg/x9RkjcwbatDelaware Hospital For The [facility]ically [facility] MANAGER CODE.[facility] Work Phone: [phone]06-28-2024 13:40-0400Body temperature 97.3 [degF][facility] Work Phone: [facility]06-28-2024 13:40-0400Body dkuftn117.01 kgDel[facility] MANAGER CODE.[facility] Work Phone: [phone]06-28-2024 13:40-0400Diastolic blood mm[Hg][facility] MANAGER CODE.[employer] Work Phone: [phone]06-28-2024 13:40-0400Heart rate68 /min [facility] MANAGER CODE.[employer] Work Phone: [phone]06-28-2024 13:40-0400Respiratory rate 16 /minDelaware [facility] For The [facility]ically [facility] MANAGER CODE.[employer] Work Phone: [phone]06-28-2024 13:40-7343BrC9% (BldA) [Mass fraction]99 %[facility] MANAGER CODE.[employer] Work Phone: [phone]06-28-2024 13:40-0400Systolic blood ugimisga842 mm[Hg][facility] MANAGER CODE.[employer] Work Phone: [phone]06-18-2024 13:21-0400Body hzyzdk495.9 cmDelaware Hospital For The [facility]ically Ill MANAGER CODE.[employer] Work Phone: [phone]06-18-2024 13:21-0400Body mass index (BMI) [Ratio]30.61 kg/i8HxqjvakkDelaware Hospital For The [facility] MANAGER CODE.[employer] Work Phone: [phone]06-18-2024 13:21-0400Body temperature 97.81 [degF][facility] MANAGER CODE.[employer] Work Phone: [phone]06-18-2024 13:21-0400Body .38 kgDel[facility] MANAGER CODE.[employer] Work Phone: [phone]06-18-2024 13:21-0400Diastolic blood nsrceflg80 mm[Hg][facility] MANAGER CODE.[employer] Work Phone: [phone]06-18-2024 13:21-0400Heart rate74 /min [facility] MANAGER CODE.[employer] Work Phone: [phone]06-18-2024 13:21-0400Respiratory rate 14 /minDelaware [facility] For The [facility] MANAGER CODE.[employer] Work Phone: [phone]06-18-2024 13:21-5506ZxF3% (BldA) [Mass fraction]98 %[facility] MANAGER CODE.[employer] Work Phone: [phone]06-18-2024 13:21-0400Systolic blood iqumtvjd765 mm[Hg][facility] MANAGER CODE.[employer] Work Phone: [phone]06-14-2024 14:28-0400Body luhhss517.9 cmDel[facility] MANAGER CODE.[employer] Work Phone: [phone]06-14-2024 14:28-0400Body mass index (BMI) [Ratio]31.57 kg/i9DejvkawvDelaware Hospital For The Chronically Ill MANAGER CODE.[employer] Work Phone: [phone]06-14-2024 14:28-0400Body temperature 97.3 [degF][facility] MANAGER CODE.[employer] Work Phone: [phone]06-14-2024 14:28-0400Body mfooet336.6 kgDelaware [facility]ically [facility] MANAGER CODE.[employer] Work Phone: [phone]06-14-2024 14:28-0400Diastolic blood mm[Hg][facility] MANAGER CODE.[employer] Work Phone: [phone]06-14-2024 14:28-0400Heart rate71 /min [facility] MANAGER CODE.[employer] Work Phone: [phone]06-14-2024 14:28-0400Respiratory rate 14 /minDel[facility] MANAGER CODE.[employer] Work Phone: [phone]06-14-2024 14:28-1485UmH7% (BldA) [Mass fraction]98 %[facility] MANAGER CODE.[employer] Work Phone: [phone]06-14-2024 14:28-0400Systolic blood mm[Hg]Tita Landry APRNFlorenceUNIVERSITY SERVICES PROGRAM ASSOCIATE Work Phone: [phone]05-28-2024 15:33-0400Body temperature 97 [degF]Roseann Rosario MD Work Phone: [phone] Memorial HospitalQopsva22-30-3699 15:33-0400Diastolic blood urckoxix58 mm[Hg]Roseann Rosario MD Work Phone: [phone] Memorial HospitalYkvnda58-19-0533 15:33-0400Heart rate92 /min Roseann Rosario MD Work Phone: [phone] Memorial HospitalSyjwvq72-56-7844 15:33-0400Respiratory rate 24 /minRoseann Rosario MD Work Phone: [phone] Memorial HospitalEspxth32-17-4194 15:33-3534ZpV6% (BldA) [Mass fraction]97 %Roseann Rosario MD Work Phone: [phone] Memorial HospitalRurjrz58-55-3103 15:33-0400Systolic blood tsdbxiyd708 mm[Hg]Roseann Rosario MD Work Phone: [phone] Memorial HospitalFzraml91-91-9148 15:03-0400Body lgjxzo638.9 Breonna Rosario MD Work Phone: [phone] Memorial HospitalPfaxkv35-20-6383 15:03-0400Body mass index (BMI) [Ratio]29.84 kg/t3QcnqtjmRoseann Rosario MD Work Phone: [phone] Memorial HospitalHpmnuk30-12-6791 15:03-0400Body oinrps71.79 kgRoseann Rosario MD Work Phone: [phone] Memorial HospitalUllvzf57-79-5213 13:22-0400Body vshihq261.9 Ronald Flood MD, PhD Work Phone: [phone]05-28-2024 13:22-0400Body mass index (BMI) [Ratio]29.84 kg/e3KmjbpyRonaldo Flood MD, PhD Work Phone: [phone]05-28-2024 13:22040Body temperature 97.3 [degF]Ronaldo Flood MD, PhD Work Phone: [phone]05-28-2024 13:22040Body zmraat58.79 kgRonaldo Flood MD, PhD Work Phone: [phone]05-28-2024 13:22040Diastolic blood jcegtspt57 mm[Hg]Ronaldo Flood MD, PhD Work Phone: [phone]05-28-2024 13:22040Heart rate91 /min Ronaldo Flood MD, PhD Work Phone: [phone]05-28-2024 13:040Respiratory rate 14 /minSezio Flood MD, PhD Work Phone: [phone]05-28-2024 13:228472LlJ0% (BldA) [Mass fraction]94 %Ronaldo Flood MD, PhD Work Phone: [phone]05-28-2024 13:22Systolic blood mfimqvdb075 mm[Hg]Ronaldo Flood MD, PhD Work Phone: [facility]05-09-2024 12:01-0400Body ystdan813.9 Ronald Flood MD, PhD Work Phone: [phone]05-09-2024 12:01-0400Body mass index (BMI) [Ratio]30.24 kg/j1FpomjvRonaldo Flood MD, PhD Work Phone: [phone]05-09-2024 12:01-0400Body temperature 97.39 [degF]Ronaldo Flood MD, PhD Work Phone: [phone]05-09-2024 12:01-0400Body wdotxu445.15 kgRonaldo Flood MD, PhD Work Phone: [phone]05-09-2024 12:01-0400Diastolic blood mm[Hg]Ronaldo Flood MD, PhD Work Phone: [facility]05-09-2024 12:01-0400Heart rate82 /min Ronaldo Flood MD, PhD Work Phone: [facility]05-09-2024 12:01-0400Respiratory rate 14 /minSezio Flood MD, PhD Work Phone: [phone]05-09-2024 12:01-0069AbE2% (BldA) [Mass fraction]98 %Ronaldo Flood MD, PhD Work Phone: [phone]05-09-2024 12:010400Systolic blood cblcyjzx913 mm[Hg]Ronaldo Flood MD, PhD Work Phone: [facility]02-27-2024 13:47-0500Body nbvaxh702.88 cmDO Sintiacandida Mcarthur Work Phone: [phone] [place], [place] 9745202-27-2024 13:47-0500 Body mass index (BMI) [Ratio]32 kg/m2DO [facility] Work Phone: [phone] [place], [place] 1692102-27-2024 13:47-0500 Body pgenth452.04 kgDO [facility] Work Phone: [facility]02-27-2024 13:47-0500 Diastolic blood habcbpit71 mm[Hg]DO [facility] Work Phone: [facility]02-27-2024 13:47-0500 Heart rate88 /minDO Sintiacandida Mcarthur Work Phone: [facility]02-27-2024 13:47-0500 Respiratory rate12 /minDO [facility] Work Phone: [facility]02-27-2024 13:47-0500 Systolic blood mm[Hg]DO [facility] Work Phone: [phone] [place], [place] 1692102-06-2024 13:30-0500 Body ggkepf803.88 cmBenjamin Ball Other [employer] Other 02-06-2024 13:30-0500Body mass index (BMI) [Ratio] 31.16 kg/j8Oduicxfa Ball Other [employer] Other 02-06-2024 13:30-0500Body pyscct089.24 kgBenjamin Ball Other [employer] Other 02-06-2024 13:30-0500Diastolic blood sgigdtat69 mm[Hg] Yuli Ball Other [employer] Other 02-06-2024 13:30-0500Respiratory rate12 /minBenjamin Ball Other [employer] Other 02-06-2024 13:30-0500Systolic blood mm[Hg] Yuli Ball Other [employer] Other 11-06-2023 10:00-0500Body beiooz608.88 cmBenjamin Ball Other [employer] Other 11-06-2023 10:00-0500Body mass index (BMI) [Ratio] 30.78 kg/u8Lmgnyoke Ball Other [employer] Other 11-06-2023 10:00-0500Body rhyytg730.97 kgBenjamin Ball Other [employer] Other 11-06-2023 10:00-0500Diastolic blood mm[Hg]Yuli Ball Other [employer] Other 11-06-2023 10:00-0500Respiratory rate12 /minBenjamin Ball Other [employer] Other 11-06-2023 10:00-0500Systolic blood mm[Hg] Yuli Ball Other [employer] Other 08-28-2023 15:16-0400Body zrumlq430.[address] DO Work Phone: [phone]lnjho31-49-8831 15:16-0400Body mass index (BMI) [Ratio]29.84 kg/f1DyynyMargie Edouard DO Work Phone: 1([phone]) [phone]zjddj51-26-5744 15:16-0400Body ljcvag66.79 kg Margie Edouard DO Work Phone: 1(128) [phone]iruko26-86-3009 09:46-0400Body fimnix137.9 cm Nena Huff DO Work Phone: [phone]updea37-86-0907 09:46-0400Body mass index (BMI) [Ratio]29.84 kg/t6QwldlNena Huff DO Work Phone: 1([phone]) [phone]gqiio56-13-3913 09:46-0400Body .79 kg Nena Huff DO Work Phone: [phone]updwh55-11-1836 10:00-0400Body hdkble663.88 cm Yuli Ball Other [employer] Other 07-27-2023 10:00-0400Body mass index (BMI) [Ratio] 30.11 kg/b2Ltbqzxyv Ball Other [employer] Other 07-27-2023 10:00-0400Body .7 kgBenjamin Ball Other [employer] Other 07-27-2023 10:00-0400Diastolic blood qamzexmb31 mm[Hg] Yuli [facility]cal [facility] Other 07-27-2023 10:00-0400Respiratory rate12 /minBenjamin Ball Other [facility] Other 07-27-2023 10:00-0400Systolic blood ciuglovg246 mm[Hg] Yuli [facility]iscal [facility] Other 06-05-2023 13:38-0400Body wpbyxk961.9 cmBrian Steginsky DO Work Phone: 1(538) [phone]tvjve41-28-7876 13:38-0400Body mass index (BMI) [Ratio]30.24 kg/o1Fxeka Steginsky DO Work Phone: 1(692) [phone]vjpqn50-68-0735 13:38-0400Body zzdubg274.15 kg Margie Steginsky DO Work Phone: 1([phone]) [phone]lrvhc58-85-8566 13:20-0400Body muzcqn849.9 cm Grecia Munsona PA-C Work Phone: 1(596) [phone]ggwpg07-88-1137 13:20-0400Body mass index (BMI) [Ratio]30.24 kg/t5UkgivGrecia Munsona PA-C Work Phone: 1(677) [phone]blqii39-28-0926 13:20-0400Body .15 kg Grecia Munsona PA-C Work Phone: 1(488) [phone]fperp77-42-3207 13:16-0400Body uhhjsi454.9 cm Margie Steginsky DO Work Phone: 1(874) [phone]orcdp57-06-1170 13:16-0400Body mass index (BMI) [Ratio]30.24 kg/u3Ddvsy Steginsky DO Work Phone: 1(710) [phone]ccwwi06-17-2311 13:16-0400Body nepbff283.15 kg Margie Edouard Work Phone: 1(252) [phone]ixcpy84-73-9278 14:44-0500BMI (Body Mass Index) 30.24 kg/j3Zcfuw UpxinoLdbuCjejwf01-54-7813 14:44-0500Body ciiqvf784.15 kgDonnyOhioHealth Pickerington Methodist HospitalJmbajpDrkhIcmbvd92-55-4270 14:44-4699Prugqf647.9 [facility] 07-01-2019 09:59-0500BMI (Body Mass Index)30.79 kg/c7ZqrhlA[facility]a [facility] 07-01-2019 09:59-0500Body .97 kgAdena [facility] CenterTirdigOykoLmrowq02-50-2548 09:59-7757Dfbsez322.9 liyahAdena [facility]ayette Medical CenterKxkmbsCjpoZqlshk13-79-4130 11:30-0500BMI (Body Mass Index)30.79 kg/m2Ray [facility] Work Phone: 1(908) [phone] 11:30-1929Tyxbar097.9 [facility] Work Phone: 1(551) 515-805302-13-2018 11:30-3671Jvyoht302.97 kgRay [facility] Work Phone: 1(187) 327-168208-15-2017 12:07-0400BMI (Body Mass Index)29.97 kg/m2 Ray [facility] Work Phone: 1(606) 612-227708-15-2017 12:07-5952Xowjpj837.9 cmR[facility] Work Phone: 1(506) 261-941208-15-2017 12:07-8640Uadsbn708.25 kgRay [facility] Work Phone: Encounters Encounter DateEncounter TypeCare ProviderFacilityStart: 30-12-3843gjgzxbhjqf LOUISE MAJUMDARFacility:[facility]: 03-26-2025 End: 85-79-2945jfbvfndhhoWBZNYLWNUW ISAKOVFacility:[facility]Start: 03-25-2025 End: 34-62-1355Axdcyy flowsheetSteven A Rusher DPM Work Phone: [facility]ryStart: 03-25-2025 End: 37-55-7159Moqypw flowsheetSteven A Rusher DPM Work Phone: [facility]iatryStart: 03-25-2025 End: 11-22-0574jlsglcerobLCVIAP A RUSHERNot AvailableStart: 03-25-2025 End: 16-66-9884Gibojx outpatient visit 15 minutesSteven A Rusher DPM Work Phone: [facility] PodiatryComment on above: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, stage 2 (CMS-HCC) (Primary Dx); Cellulitis of left foot; Pain in toe of left foot; Difficulty walkingStart: 03-24-2025 End: 71-56-7779wjrpnlxupiHBDLLP [facility] CENTEREERFacility:[facility]tart: 19-30-9957sadaxwpuffZmjgmg BeveridgeFacility:[facility]tart: 03-17-2025 End: 77-48-9634Rpubgh flowsheetSteven A Rusher DPM Work Phone: [facility]ryStart: 03-17-2025 End: 86-93-4237Twljho flowsheetSteven A Rusher DPM Work Phone: [facility]iatryStart: 03-17-2025 End: 49-67-8880Eqzgrb outpatient visit 15 minutesSteven A Rusher DPM Work Phone: [facility] PodiatryComment on above: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, stage 2 (CMS-HCC) (Primary Dx); Cellulitis of left foot; Pain in toe of left foot; Difficulty walkingStart: 03-17-2025 End: 08-55-4097wythiooqdbGPHSTR A RUSHERNot AvailableStart: 03-16-2025 End: 14-88-4751fkzwbezzvmVRWHLJ NASEERFacility:[facility]tart: 03-12-2025 End: 90-34-1705Jswseq flowsheetSteven A Rusher DPM Work Phone: [facility] PodiatryStart: 03-12-2025 End: 65-96-7455Yzmciz flowsheetSteven A Rusher DPM Work Phone: [facility] PodiatryStart: 03-12-2025 End: 39-94-5566azftoyguqjRXOGVG A RUSHERNot AvailableStart: 03-12-2025 End: 11-62-3066Hjblih outpatient new 30 minutesSteven A Rusher DPM Work Phone: [facility] PodiatryComment on above: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, stage 2 (CMS-HCC) (Primary Dx); Cellulitis of left foot; Pain in toe of left foot; Difficulty walkingStart: 03-12-2025 End: 92-60-6887xmoascnwyrCEVYUW A RUSHERNot AvailableStart: 03-05-2025 End: 86-97-8226gmonpkkpdpNGQYQGOXNC ISAKOVFacility:[facility] Start: 02-25-2025 End: 41-85-4887Kbortpo encounter procedureZabrina Suarez MD Work Phone: [facility] HospitalComment on above:FLOYD (acute kidney injury) (Primary Dx); Screening for genitourinary condition; Elevated serum creatinine; Decreased GFR; Generalized edema; Pleural effusion, not elsewhere classifiedStart: 02-25-2025 End: 81-83-3029uvgkubdrbxVaudjsAsia Suarez MD Work Phone: [facility] HospitalStart: 17-57-1102gfondnoapwren MOOREacility:[facility]tart: 02-19-2025 End: 72-65-2899Oaxnxicbjq hospital visit by Geoff Jung A21 5 Work Phone: RadiologyComment on above:Other ascites [R18.8]Start: 02-17-2025 End: 28-83-3581oqdpcrosxlFgecsMasoud Hooper APRN.CNP Work Phone: GastroenterologyComment on above:Willie Raymundo. 1950tart: 02-11-2025 End: 62-99-9380lqkjzsgqtlKEDSMPZDHN ISAKOVFacility:[facility] Start: 02-02-2025 End: 57-60-6546yvtidcmbazMUM FRED LOVELYFacility:[facility] Start: 01-26-2025 End: 51-18-9387Tulrtds encounter procedureJose Antonio Hopper MD Work Phone: Jose Antonio Hopper MDComment on above:Metabolic encephalopathy (Primary Dx); Stage 3a chronic kidney disease (HCC); Primary hypertension; Lymphocytic colitis; Generalized edema; Orthostatic hypotension; Cramp and spasm; Urge incontinenceStart: 01-25-2025 End: 66-64-4138wdkkgxugodYPSHPHKPHL ISAKOVFacility:[facility] Start: 01-19-2025 End: 27-57-1536QagtclEbmotxnadn Isakov MD Work Phone: Vjuan francisco Hopper MDStart: 01-12-2025 End: 76-61-8242LhjfbzEimrqxjnbn Isakov MD Work Phone: Vjuan francisco Lanv MDComment on above:Refill Request Start: 01-11-2025 End: 63-23-7796Aizcght encounter procedureTriston Riggs MD Work Phone: Pulmonary MedicineComment on above:Pleural effusion (Primary Dx); Pleuritis; Pericardial effusion (noninflammatory) (HCC); History of pericarditis; Lymphocytic colitisStart: 01-11-2025 End: 25-79-3091rimcawmpffKJPFQ GILLESPIEFacility:[facility]tart: 01-08-2025 End: 91-58-0547Orrnbgkhoh hospital visit by physicianIgorral Keron Ahumada Mc Work Phone: RadiologyComment on above:Pleural effusion, not elsewhere classified [J90]Start: 01-08-2025 End: 35-32-3993ammwgbtwnqCPFSY GILLESPIEFacility:[facility]tart: 12-22-2024 End: 67-07-1194Smzynawdsogo consultation with Wolfgang Hooper APRN.CNP Work Phone: GastroenterologyStart: 12-22-2024 End: 01-76-5517ohiavzupwsEhahwMasoud Hooper APRN.CNP Work Phone: GastroenterologyComment on above:Elevated serum creatinine (Primary Dx); Elevated alkaline phosphatase levelStart: 12-16-2024 End: 15-91-9675mfjivzcqigWPJCGOY SHARMAFacility:[facility]tart: 12-15-2024 End: 89-09-4039Zivkhib encounter procedureJose Antonio Hopper MD Work Phone: Vjuan francisco Hopper MDComment on above:Mixed connective tissue disease (HCC) (Primary Dx); Urge incontinence; Hypokalemia; Recurrent 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; Muscle cramps; Hiatal herniaStart: 11-25-2024 End: 07-79-8134ImqjgpKsblhvkbzv Isakov MD Work Phone: Vjuan francisco Lanv MDComment on above:Refill Request Start: 11-24-2024 End: 12-74-1861Kwbwrl-up encounterZac Mendiola MD Work Phone: CardiologyStart: 11-23-2024 End: 86-62-4733Bmwhurdaq encounterSezio Flood MD, PhD Work Phone: oracic ClinicComment on above:Received Outside Medical RecordsStart: 11-23-2024 End: 74-44-0866Fblnfty encounter Donya Riggs MD Work Phone: Pulmonary MedicineComment on above:Pleural effusion (Primary Dx); Pleuritis; Pericardial effusion (noninflammatory) (HCC); Lymphocytic colitis; Other ascitesStart: 11-23-2024 End: 80-29-6728Ulegtdpptr hospital visit by physicianXr Chest Main I88Nogtmgiju Comment on above:Pleural effusion, not elsewhere classified [J90]Hepatomegaly [R16.0]Start: 11-23-2024 End: 52-14-4739khboaryqiqLJXCAPF PROVIDERFacility:[facility] Centertart: 11-20-2024 End: 88-15-1864Oyvncv outpatient new 45 minutesZac Mendiola MD Work Phone: CardiologyComment on above:Extremity cyanosis (Primary Dx)Start: 11-20-2024 End: 63-90-6257uvndwoimqlBMOPVNR SHARMAFacility:[facility]tart: 11-19-2024 End: 99-55-8765lcrhwgahqcVBTMP GILLESPIEFacility:[facility]tart: 11-19-2024 End: 06-43-5489Cjjwwwn encounter procedureTriston Riggs MD Work Phone: Pulmonary MedicineComment on above:Pleural effusion (Primary Dx)Start: 11-19-2024 End: 94-70-9226weuetcarvuALSMB GILLESPIEFacility:[facility]tart: 11-19-2024 End: 34-07-2868Jfwotawyvy hospital visit by physicianXr Chest Main Js7Nsnjgycve Comment on above:Pleural effusion [J90]Start: 11-17-2024 End: 65-63-6855Dixkmdpth encounterMya (Pss) DozierPulmonary MedicineComment on above:Patient QuestionStart: 11-17-2024 End: 97-54-3680lmgahgpelbECMPSAXIZV ISAKOVFacility:[facility] Start: 11-13-2024 End: 93-69-3324Jxrjnxd encounter procedureJose Antonio Hopper MD Work Phone: Jose Antonio Hopper MDComment on above:Anasarca (Primary Dx); Recurrent 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; Hepatomegaly; Hiatal hernia; Chronic gastritis without bleeding, unspecified gastritis type; HypomagnesemiaStart: 11-12-2024 End: 76-93-7999Ltzxbgqqs department patient visitYULI MARISCAL Facility:[facility]: 11-05-2024 End: 96-81-4259hzepouwpqtPEKUHFNP E BALLFacility:[facility]tart: 55-17-4548umvvowksorEBEIRGDV E BALLFacility:[facility] Healthcaretart: 11-03-2024 End: 76-89-1123Jefqdf-up encounterTiffannorris Ly APRN.[employer] PRO[employer] ASSOCIATE Work Phone: GaroenterologyStart: 10-31-2024 End: 85-17-6080Rgwpvg-up encounterTiffannorris Ly MANAGER CODE.[employer] PROGRAM ASSOCIATE Work Phone: GaroenterologyStart: 10-27-2024 End: 28-95-4792Vslcyc OnlyVilma Guthriemon MAPulmonary MedicineComment on above: Pleural effusion (Primary Dx)Start: 10-23-2024 End: 55-62-6335Xbrnxdjfc encounterSezio Flood MD, PhD Work Phone: oracic ClinicComment on above:Received Outside Medical RecordsStart: 10-23-2024 End: 20-51-1098Mfxlswooji [facility] Work Phone: [facility] UltrasoundComment on above: Elevated alkaline phosphatase level [R74.8]Start: 10-23-2024 End: 11-76-7143rkoiqukjpxMGNXKDHX E BALLFacility:[facility] Healthcaretart: 10-20-2024 End: 73-84-1710Yjfzbf-up encounterTiffannorris Ly APRN.[employer] PROGRAM ASSOCIATE Work Phone: Garomiddletown hospitalologyStart: 10-19-2024 End: 80-94-5310YcwapdIxejowoobz Isakov MD Work Phone: Jose Antonio Hopper MDComment on above:Refill Request Start: 10-15-2024 End: 05-59-5192Caybrd-up encounterTifgriffin Ly APRN.[employer] PROGRAM ASSOCIATE Work Phone: GastroenterologyStart: 10-15-2024 End: 95-26-1243Jnrnvum encounter procedureZabrina Suarez MD Work Phone: [facility] HospitalComment on above:FLOYD (acute kidney injury) (Primary Dx); Elevated BUN; Elevated serum creatinine; Decreased GFR; Lymphocytic colitis; Pleural effusion, not elsewhere classified; Generalized edemaStart: 10-15-2024 End: 11-22-3059shfjtjpvxuAsbadv J Augustine MD Work Phone: [facility] HospitalComment on above:Serositis (HCC) (Primary Dx)Start: 10-14-2024 End: 76-07-9756twpvudpxvkTODBPEY JARMANFacility:[facility]tart: 10-14-2024 End: 17-04-6310nxktvrjegsKFUXJVE JARMANFacility:[facility]art: 10-14-2024 End: 32-87-5786Pdsbyvj encounter procedureTifgriffin Ly APRN.CNP Work Phone: GastroenterologyComment on above:Elevated BUN (Primary Dx); Elevated serum creatinine; Decreased GFR; Elevated alkaline phosphatase levelPleural effusion (Primary Dx)Start: 10-14-2024 End: 13-33-5771opyugsslvlZIUKVZKPR CLEMENTFacility:[facility] Start: 45-76-5358uxqcbehisxCHGXAZB MAJUMDARFacility:[facility] Start: 10-13-2024 End: 75-14-3549Bihwpbeaff hospital visit by physicianGeneral Keron Ahumada Mc Work Phone: RadiologyComment on above:Cough, unspecified type [R05.9]Start: 10-02-2024 End: 63-77-9041Pbczg abstractGabby Contreras PA-C Work Phone: pulmonary MedicineStart: 10-02-2024 End: 63-00-1460Pbqrdyjlc encounterHui OCHOAAdmittingComment on above: Appointment ConfirmationStart: 10-02-2024 End: 00-62-5232dbindcwomsZqcshe Naseer MD Work Phone: GastroenterologyComment on above:Willie Raymundo 1950 Willie Raymundo 6-23-2187Jexea: 09-25-2024 End: 61-46-5539acfcdzszohQSKIMR HELFANDFacility:[facility] HospitalStart: 09-25-2024 End: 95-30-1210Rghtljshzu hospital visit by Luther Dennis MD Work Phone: GastroenterologyComment on above:Esophageal dysphagia [R13.19]Start: 09-23-2024 End: 70-65-2538Yymfvmxnp encounterSezio Flood MD, PhD Work Phone: Thoracic ClinicComment on above:Received Outside Medical RecordsStart: 09-18-2024 End: 63-63-5334jfodvxjwvfMsamt Madsen RNGastroenterologyStart: 09-14-2024 End: 76-12-4701Rzrgxvciw encounterMya (Pss) DozierPulmonary MedicineComment on above:Patient UpdateStart: 09-11-2024 End: 08-99-5885xorkuycudkSDOCMXAHSG ISAKOVFacility:[facility] Start: 09-11-2024 End: 29-73-1063qbbrqgrwltUcjggiwnxMer[facility] Work Phone: Start: 09-11-2024 End: 22-07-7863Etbmcpk encounter procedureCone Health Women'[facility] Physician GroupSelect [facility] Work Phone: Start: 09-08-2024 End: 33-46-5122mpuivtgzscPJKBYBJ ASHTONFacility:[facility]tart: 09-04-2024 End: 86-67-3544Kkdkvfzcx encounterDevanna Ortiz [facility] B374Elvjk: 09-04-2024 End: 58-46-0968Hacjjgd encounter procedureJose Antonio Hopper MD Work Phone: Jose Antonio Hopper MDComment on above:Recurrent 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 (Primary Dx); Hypokalemia; Lymphocytic colitis; Anemia, unspecified type; Chronic insomniaStart: 09-04-2024 End: 95-92-7067mwgbpypaajKVQZED C CICENIAFacility:[facility] Start: 09-03-2024 End: 05-67-5553sagdfixheaCACCJZPEVX ISAKOVFacility:[facility] Start: 36-64-9474Arf-patient / Non-visitC[facility] Health [facility] Hospital Physician [facility] Work Phone: Start: 09-02-2024 End: 16-94-5020Eyztchsba encounterCarol Ezequielalayna RUTH Work Phone: admittingComment on above:Post Dc Program Call - Needs AttnAppointment (Thoracentesis)Start: 39-82-3240Fvm-patient / Non-visit [facility] Physician [facility] Work Phone: Start: 09-01-2024 End: 76-07-1524Srsqgo Jesus Hopper MD Work Phone: Vyajosé manuel Ispatiencev MDComment on above:Recurrent 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 (Primary Dx)Start: 65-06-2040Lju-patient / [facility] Work Phone: Start: 57-12-0565Ima-patient / Non-visitCl[facility] Work Phone: Start: 13-36-0945Azw-patient / Non-visitCl[facility] Work Phone: Start: 08-28-2024 End: 36-23-2010Zekunh Jesus Hopper MD Work Phone: Vjuan francisco Hopper MDComment on above:Recurrent 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 (Primary Dx)Start: 08-27-2024 End: 96-59-9676Ppfmgn flowsheetRaji Bynum MD Work Phone: [facility] DERMStart: 08-27-2024 End: 68-92-8756Qapdlc flowsheetEmruel Bynum MD Work Phone: n[facility] SWS DERMStart: 08-27-2024 End: 44-20-0038Xsbjlh outpatient visit 15 minutesEmruel Bynum MD Work Phone: [facility] DERMComment on above:Seborrheic keratosis (Primary Dx); Actinic keratosis; Stasis dermatitis of both legs; LentiginesStart: 08-27-2024 End: 76-45-1076yxjcufawxzJFLYQ A PETITTINot AvailableStart: 08-26-2024 End: 30-37-8531Qvmmdf-up encounterSue Murillo MD Work Phone: GastroenterologyStart: 14-93-3564Cxc-patient / Non-visitC[facility] Health [facility] Physician GroupUniversal Health Services Professional [facility] Work Phone: Start: 08-24-2024 End: 40-11-6725lgifgccfxlOVXYLLTTFN ISAKOVFacility:[facility] Start: 08-24-2024 End: 55-68-7590Tywzfe outpatient visit 25 minutesSue Murillo MD Work Phone: GastroenterologyComment on above:Lymphocytic colitis (Primary Dx); Esophageal dysphagiaStart: 08-24-2024 End: 32-74-4536medfhlruheZBDANP NASEERFacility:[facility] HospitalStart: 08-21-2024 End: 35-06-4892Abznndipp encounterCarol Wecedrics MANAGER CODE.[employer] PROGRAM ASSOCIATE Work Phone: cardiologyComment on above:Post Dc Program Call - Needs AttnRefill RequestStart: 08-18-2024 End: 25-63-9169aqlantirgdZFSVA WEGASFacility:[facility] HospitalStart: 08-18-2024 End: 49-39-0012Jnmkape encounter procedureCarol Wegas MANAGER CODE.[employer]IV[employer] SERVICES PROGRAM ASSOCIATE Work Phone: Thoracic ClinicComment on above:Pleural effusion (Primary Dx)Start: 29-11-7114Url-patient / Non-visitFirelands Physician [facility]- [facility] Work Phone: Start: 08-13-2024 End: 63-84-3772wwwxclqngcEFKUR GILLESPIEFacility:[facility] HospitalStart: 08-13-2024 End: 65-31-0016Pwexyzbbra hospital visit by physicianXr [facility]Rad[facility] Comment on above:Pleural effusion [J90]Start: 08-12-2024 End: 21-91-3512wduxvtodimVVIOJOXW D ZAHLERNot AvailableStart: 08-12-2024 End: 59-73-6640Zpnhvp flowsheetAnne-Marie Bajwa DO Work Phone: noms NB OPHTStart: 08-12-2024 End: 66-21-3401Febuzq flowsheetAnne-Marie Bajwa DO Work Phone: noms NB OPHTStart: 08-12-2024 End: 63-71-6138Uucitmkou encounterSdarrion Contreras PA-C Work Phone: Pulmonary MedicineComment on above:Patient Update Patient QuestionPatient RequestStart: 08-10-2024 End: 81-45-4806Pqtytebvq encounterMya (Pss) DozierPulmonary MedicineComment on above:Patient QuestionStart: 08-04-2024 End: 67-41-5289Xjeozempw encounterSezio Flood MD, PhD Work Phone: oracic ClinicComment on above:Received Outside Medical RecordsStart: 08-03-2024 End: 35-00-5639Rxerswppi encounterMya (Pss) DozierPulmonary MedicineComment on above:Patient UpdateStart: 07-29-2024 End: 56-81-8533InozukBlanca Hopper MD Work Phone: Jose Antonio Hopper MDComment on above:Pleural effusion (Primary Dx)Start: 13-02-0928Iqi-patient / Non-visitFirlidgerwoods [facility] Work Phone: Start: 07-24-2024 End: 98-59-0449Zevrqj OnlyJose Antonio Hopper MD Work Phone: Jose Antonio Hopper MDComment on above:Fatigue, unspecified type (Primary Dx)Start: 07-21-2024 End: 45-83-2398Kerwvfr encounter procedureJose Antonio Hopper MD Work Phone: Jose Antonio Hopper MDComment on above:Pleural effusion (Primary Dx); Muscle cramps; Anasarca; Hypomagnesemia; Lymphocytic colitisStart: 25-14-8669Uqj-patient / Non-visitFirsentara [facility] GroupUniversal [facility] Services [facility] Work Phone: Start: 07-20-2024 End: 28-83-9446otadelnpglEJHDL GILLESPIEFacility:[facility]tart: 07-20-2024 End: 67-78-7611Ixtfdlo encounter procedureTriston Riggs MD Work Phone: Pulmonary MedicineComment on above:Pleural effusion (Primary Dx); Pleuritis; Pericardial effusion (noninflammatory); Chronic coughStart: 07-20-2024 End: 37-74-9129mafaivtzkpMCDMFIVKL CLEMENTFacility:[facility] Start: 07-20-2024 End: 95-33-2513Bbkcdnkwya hospital visit by physicianXr Chest Main Ec0Vtalnbfyc Comment on above:Pleural effusion [J90]Start: 07-17-2024 End: 26-65-2918Vdwtf abstractGabby Contreras PA-C Work Phone: Pulmonary MedicineStart: 07-16-2024 End: 27-27-1865Gouwmliuu encounterTriston Riggs MD Work Phone: Pulmonary MedicineComment on above:OrdersStart: 07-16-2024 End: 75-13-5706qenzpgkqxvAHNOV GILLESPIEFacility:[facility]tart: 07-14-2024 End: 78-78-5786Rvnrymq encounter procedureC[facility] Phys[facility] GroupSelect [facility] Work Phone: Start: 07-10-2024 End: 98-24-5905RsqwvkIdwgdNayana Edouard DO Work Phone: [facility] Orthopedic SurgeonsStart: 07-08-2024 End: 76-16-4749Krokk abstractGabby Contreras PA-C Work Phone: Pulmonary MedicineStart: 06-29-2024 End: 93-08-2042Belztirmo encounterDevanna Ortiz [facility] MAIN C851Jploupz on above:AppointmentStart: 06-22-2024 End: 68-13-1451Ugxyoz OnlyKaterina Contreras PA-C Work Phone: Pulmonary MedicineComment on above:Pleural effusion (Primary Dx)Pleural effusion (Primary Dx); Pleuritis; Lymphocytic colitis; Pericardial effusion (noninflammatory); Interstitial pulmonary disease (HCC)Start: 06-12-2024 End: 66-36-6413Lxydpzu encounter procedureJose Antonio Hopper MD Work Phone: Jose Antonio Hopper MDComment on above:Recurrent 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 (Primary Dx); Primary hypertension; Lymphocytic colitis; Elevated C-reactive protein (CRP); Exocrine pancreatic insufficiency; Hypokalemia; AnasarcaStart: 06-01-2024 End: 86-80-8318qjehzcxxaqXAMCYAShayna VILLAFacility:[facility] Start: 06-01-2024 End: 55-77-1142Tzmlye outpatient visit 25 minutesSteffen Villa MD Work Phone: RheumatologyComment on above:Pleural effusion (Primary Dx); Elevated sed rate; Elevated C-reactive protein (CRP)Start: 05-29-2024 End: 73-82-6714osjekocjtuRTFPUVHJ E BALLFacility:[facility]tart: 05-26-2024 End: 95-93-1303ecdhhagkrqCGTXSC NASEERFacility:[facility]art: 05-26-2024 End: 16-09-0550Zbywck outpatient visit 25 minutesMaliha Naseer MD Work Phone: GastroenterologyComment on above:Lymphocytic colitis (Primary Dx)Start: 05-25-2024 End: 00-96-2532Khsqcvhuv encounterTeasia Berny Longoria HUCAdmittingStart: 05-18-2024 End: 34-48-2631mjtubikgmhXUYJVAS MAJUMDARFacility:[facility] Start: 05-18-2024 End: 80-19-1144Kvkfobtwzc hospital visit by physicianXr [facility] [place] Work Phone: RadiologyComment on above:Pleural effusion [J90]Start: 05-18-2024 End: 38-25-9864oncxfvkkkbJBJDWNS MAJUMDARFacility:[facility] Start: 05-18-2024 End: 89-93-7076Dmvwmlh encounter procedureLouise Cesar MD Work Phone: Pulmonary MedicineComment on above:Pleural effusion (Primary Dx); Chronic cough; Lung nodule; Lymphocytic colitisStart: 05-13-2024 End: 04-96-9632Iqwgkcl encounter procedureJose Antonio Hopper MD Work Phone: Jose Antonio Hopper MDComment on above:Recurrent 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 (Primary Dx); Anasarca; Chronic cough; Primary hypertensionStart: 05-11-2024 End: 85-14-7005voymarielrTkdadt Naseer MD Work Phone: GastroenterologyComment on above:Willie Reidart: 05-07-2024 End: 43-39-8386asksliqgopRftowz Naseer MD Work Phone: GastroenterologyComment on above:Willie Johnson: 05-05-2024 End: 96-66-9253fzvetlhvkdWnockn Naseer MD Work Phone: GastroenterologyComment on above:Willie Johnson: 04-30-2024 End: 71-90-4480Sbvaio Galileo Murillo MD Work Phone: [facility] Endoscopy - ENDOStart: 04-28-2024 ambulatoryVASILIY OLARFacility:[facility]tart: 04-28-2024 End: 90-82-7519Semupzjits hospital visit by Marisol Ponce MD Work Phone: [facility] Endoscopy - ENDOComment on above: Diarrhea, unspecified type [R19.7]Start: 21-14-7353leuoepxyhgNIKXJ E ARKOUSH [facility]: 04-22-2024 End: 24-49-1648jjtynxgxkvDFEMJR NASEERFacility:[facility]art: 04-22-2024 End: 90-38-6623Rouzhvegln hospital visit by Flavia [facility] (I-Stat)CT Scan [place] FHCComment on above:Diarrhea, unspecified type [R19.7]Start: 04-20-2024 End: 52-93-4552bclgjewizcZAMZGG NASEERFacility:[facility] HospitalStart: 04-20-2024 End: 81-36-2075Vcgrgo outpatient new 45 Ernesto Murillo MD Work Phone: GastroenterologyComment on above:Abdominal pain, unspecified abdominal location (Primary Dx); Diarrhea, unspecified typeStart: 04-20-2024 End: 49-80-0745oqicfyipgkVQBRCR NASEERFacility:[facility] HospitalStart: 03-30-2024 End: 99-48-2135Bcqggo outpatient new 60 Bal Villa MD Work Phone: RheumatologyComment on above:Pleural effusion (Primary Dx); Elevated sed rate; Elevated C-reactive protein (CRP); Diarrhea, unspecified typeStart: 40-04-4589ymnqbnbbzwEWEBYMZ MAJUMDAR [facility]: 03-26-2024 End: 09-72-5310Xphxfqcuxp hospital visit by Ki Toure Work Phone: Cardiovascular TestingComment on above:Pericarditis, unspecified chronicity, unspecified type [I31.9]Start: 82-11-5761ishhbtwdkf LOUISE CARLOSacility:[facility]Start: 03-17-2024 End: 07-74-2486Wbacvwlutz hospital visit by physicianRadio Ct Scan [place] Work Phone: RadiologyComment on above:Interstitial pulmonary disease (HCC) [J84.9]Start: 03-17-2024 End: 41-40-3050gstpgsssugIBIMBJG MAJUMDARPulmonary LabComment on above: SpirometryStart: 03-17-2024 End: 36-07-3589Aaiyrfa encounter procedureRuma Oshea PA-C Work Phone: Thoracic SurgeryComment on above:Pleural effusion (Primary Dx)Start: 03-17-2024 End: 57-65-2094Zvqjyew encounter procedureLouise Cesar MD Work Phone: PULMONOLOGY [facility]ITALOR HOSPITALComment on above:Chronic cough (Primary Dx); Pleural effusion; Pleuritis; Interstitial pulmonary disease (HCC); Pericardial effusion (noninflammatory); Pericarditis, unspecified chronicity, unspecified typeStart: 03-17-2024 End: 67-60-3787Pltjcfstai hospital visit by physicianXr [facility] 1XRAY / RADIOLOGY [facility]OSPITALComment on above:Chronic bronchitis, unspecified chronic bronchitis type (HCC) [J42]Start: 03-17-2024 End: 46-02-3313Gznfpvy encounter procedurePulm Fct Lab1 - MentorPULMONOLOGY LAB [facility]ITALOR HOSPITALStart: 03-17-2024 End: 87-75-1222clrvwdectmDQFRAQO MAJUMDARPULMONOLOGY LAB [facility]ITALOR HOSPITALComment on above:SpirometryStart: 03-03-2024 End: 00-97-5644Tmkhzxhvh encounterSezio Flood MD, PhD Work Phone: CardiologyComment on above:Post Dc Program Call - Needs AttnPatient UpdateStart: 02-21-2024 End: 46-91-0803Onbpveyih encounterSezio Flood MD, PhD Work Phone: oracic ClinicComment on above:Patient Update (Pleurex output )Start: 02-12-2024 End: 85-49-0085Qjvltsc encounter Ellie Dial MD Work Phone: Yehuda Dial MDComment on above:Recurrent 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 (Primary Dx); History of pericarditisStart: 02-12-2024 End: 54-79-7518Ikbwqbz encounter procedureJose Antonio Hopper MD Work Phone: Jose Antonio Hopper MDComment on above:Recurrent 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 (Primary Dx); Primary hypertension; Pleural effusion; Chronic cough; Anemia, unspecified type; HypomagnesemiaStart: 02-04-2024 End: 15-50-6499Jjhwpag encounter procedureDelaware Hospital For [facility] MANAGER CODE.UNIVERSITY SERVICES PROGRAM ASSOCIATE Work Phone: [facility] SurgeryComment on above:Pleural effusion (Primary Dx); Elevated sed rate; Elevated C-reactive protein (CRP)Start: 02-04-2024 End: 95-26-3456lpbhaiepkdTFAMCIIP WILTSHIREFacility:[facility]art: 02-04-2024 End: 34-62-2440Qroonqjnru hospital [facility] by physicianAll[facility] MCComment on above:Pleural effusion [J90]Start: 01-28-2024 End: 86-61-9869Byalmx Ruben Huff DO Work Phone: [facility] Orthopedic SurgeonsStart: 01-22-2024 Admission to same day surgery [facility] MANAGER CODE.UNIVERSITY SERVICES PROGRAM ASSOCIATE Work Phone: oracic SurgeryComment on above:Willie Breanne [facility] CenterStart: 85-05-9601kvvrdqeyekDqgnkjvl [place] MANAGER CODE.UNIVERSITY SERVICES PROGRAM ASSOCIATE Work Phone: oracic SurgeryStart: 89-47-2711Cklaqqtzv encounter Ronaldo Flood MD, PhD Work Phone: [facility] ClinicComment on above:Received Outside Medical RecordsStart: 01-15-2024 End: 02-32-6814Rtwyapn encounter procedureJose Antonio Hopper MD Work Phone: Jose Antonio Hopper MDComment on above:Recurrent 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 (Primary Dx); Chronic cough; Elevated C-reactive protein (CRP); Elevated sedimentation rateStart: 01-06-2024 End: 78-51-9919Dekyteq encounter Stella Oshea PA-C Work Phone: [facility] SurgeryComment on above:Pleural effusion (Primary Dx)Recurrent pleural effusion (Primary Dx); History of pericarditis; Chronic coughStart: 01-06-2024 End: 06-97-8461ymppbvpikqTEWGEH ZAVARELLAFacility:[facility]art: 01-06-2024 End: 01-17-7508Xdzaplyjnl hospital visit by physicianXr [facility] MangumComment on above:Recurrent 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 [J90] Start: 12-20-2023 End: 82-95-4651Aevhlaxtnf and management of Lalo MOROCHO Facility:[facility]: 12-20-2023 End: 21-06-0122Xabyyce encounter procedureDelaware Hospital For The Chronically Ill FARAZ Work Phone: [facility] SurgeryComment on above:Follow-up examination after lung surgery (Primary Dx); Pleural effusion; Bilateral lower extremity edema; Anasarca; Nausea vomiting and diarrheaStart: 12-20-2023 End: 47-11-5790xbosrhfwvyCXKULZUD WILTSHIREFacility:[facility]art: 12-20-2023 End: 17-15-5305Jqvtwspghi hospital visit by physicianXr [facility]umCom[facility] on above:Pleural effusion [J90]Start: 12-17-2023 Telephone encounterSezio Flood MD, PhD Work Phone: CardiologyStart: 12-13-2023 End: 85-05-1700Uopvkvw encounter procedureDelaware Hospital For [facility] MANAGER CODE.CURT Work Phone: [facility] SurgeryComment on above:Pleural effusion (Primary Dx)Start: 12-13-2023 End: 91-53-4597bsviqukmzuBTUJSSWBNorthwest Kansas [facility]art: 12-13-2023 End: 97-82-3241Jxrqfifxzy hospital visit by physicianXr [facility] MangumComment on above:Pleural effusion [J90]Start: 12-03-2023 Telephone encounterDelaware Hospital For The Chronically Ill LETICIA.CURT Work Phone: [facility] ClinicComment on above:Schedule and Confirm AppointmentsStart: 12-03-2023 End: 42-05-3395Pyqmnjz encounter procedureDelaware Hospital For The Chronically Ill LETICIA.CURT Work Phone: [facility] SurgeryComment on above:Follow-up examination after lung surgery (Primary Dx); Pleural effusionStart: 12-03-2023 End: 87-28-3886tipaivbzvfSESWATKD WILTSHIREFacilfirelands regional medical center:[facility]art: 12-03-2023 End: 18-25-6978Iykqzdbdwe hospital visit by physicianXr [facility] MangumComment on above:Follow-up exam [Z09]Start: 11-29-2023 End: 92-83-1932Xylwuu OnlyDelaware Hospital For The Chronically Ill MANAGER CODE.UNIVERSITY SERVICES PROGRAM ASSOCIATE Work Phone: [facility] ClinicComment on above:Follow-up exam (Primary Dx)Surgery follow-up [Z09]Follow-up examination after lung surgery (Primary Dx); Pleural effusionStart: 50-85-5074Owizemeoy Naya Flood MD, PhD Work Phone: oracic SurgeryStart: 11-12-2023 End: 28-49-1776Rbwenhsabr hospital visit by [place] MD Work Phone: admittingComment on above: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] Start: 11-12-2023 End: 92-67-2129Jalwsee encounter procedureSezio Flood MD, PhD Work Phone: oracic ClinicComment on above:Pleural effusion (Primary Dx)Start: 11-12-2023 End: 67-54-7098Vccekqp encounter statusCard InjectionMcCullough-Hyde Memorial Hospitaltart: 11-12-2023 End: 39-84-3008Unbdiulrzf hospital visit by physicianCard InjectionMolecular ImagingStart: 11-12-2023 End: 44-22-3229Thhbvyx encounter statusXr J1 Work Phone: [facility] Hospitaltart: 11-12-2023 End: 95-20-3479Cnwmsnxyfz hospital visit by physicianXr Chest Main J1 Work Phone: RadiologyComment on above:Pleural effusion [J90]Start: 36-00-5062Xhbsedbcu encounterSezio Flood MD, PhD Work Phone: oracic ClinicComment on above:Patient Question (pt not)Start: 53-48-7737Oepwlyggh to same day surgery centerSezio Flood MD, PhD Work Phone: oracic ClinicComment on above:Schedule Surgery (Right VATS biopsy/ pleurodesis cs=2.5 los =2-3)Start: 49-89-9239skafwuiata Ronaldo Flood MD, PhD Work Phone: [facility]tart: 25-78-9093Cuxbuip encounter statusRonaldo Flood MD, PhD Work Phone: [facility] Hospitaltart: 10-24-2023 End: 16-36-1837Mswcrkt encounter procedureSezio Flood MD, PhD Work Phone: oracic ClinicComment on above:Obesity, Class I, BMI 30-34.9 (Primary Dx); Pleural effusionStart: 42-56-9493Gtmtfetul encounterSezio Flood MD, PhD Work Phone: oracic ClinicComment on above:External Referrals/resourcesStart: 12-55-3930Wgqfsnclq encounterNo Pcp APRNReferring PhysicianComment on above:External Referrals/resourcesStart: 10-02-2023 End: 96-03-7414cqidqaifccBZ Sintia Clemente Work Phone: [facility] Work Phone: Start: 10-02-2023 End: 83-27-0697Wgepffdc ReferredDO Sintia Clemente Work Phone: [facility]-LAB Path Spec [facility] HospStart: 10-01-2023 End: 99-98-4511osauskgqjrZrhfxu P SamsaFacility:[facility] Hospitaltart: 89-85-8747Jap-patient / Non-visitDO Sintia Clemente Work Phone: [facility] Work Phone: Start: 70-57-4106Jrj-patient / Non-visitDO Sintia Clemente Work Phone: [facility] Work Phone: Start: 09-05-2023 End: 82-41-8526bdyyxsfsrzNndsfq P SamsaFacility:[facility] Hospitaltart: 09-05-2023 End: 95-36-2902jlshtumdofTO Nathan Samsa Work Phone: [facility] Work Phone: Start: 09-05-2023 End: 37-87-4064Jyeqgoto ReferredDO Sintia Clemente Work Phone: [facility]-LAB Path Spec [facility]alia HospStart: 09-04-2023 End: 62-26-5052qamqwuxejyFvboei P SamsaFacility:[facility] Hospitaltart: 09-04-2023 End: 07-55-3237qqiohzjeqnAB Sintia Mcarthursa Work Phone: [facility] Work Phone: Start: 09-04-2023 End: 72-70-0062Wqwsoyfx ReferredDO Sintia Clemente Work Phone: [facility]-LAB Path Spec Migdalia HospStart: 18-38-4386Nwc-patient / Non-visitDO Sintia Clemente Work Phone: [facility] Work Phone: Start: 35-87-8886Idu-patient / Non-visitDO Sintia Clemente Work Phone: [facility] Work Phone: Start: 56-26-4780Dle-patient / Non-visitDO Sintia Clemente Work Phone: [facility] Work Phone: Start: 69-45-7839Vot-patient / Non-visitDO Sintia Clemente Work Phone: [facility] Work Phone: Start: 67-54-1111Egr-patient / Non-visitDO Sintia Clemente Work Phone: [facility] Work Phone: Start: 08-13-2023 End: 46-62-0273Gpxjcjs encounter procedureDO Sintia Clemente Work Phone: [facility] Work Phone: Start: 07-23-2023 End: 44-16-4192ggwzkexlrzDehzkbtf Ball Other [facility] Soshowise Other Start: 95-72-4630Fjcmnwx encounter procedureBenjamin BallFPG [facility] ClinicStart: 07-10-2023 End: 55-43-0420ofglaxihkmWamonscg Ball Other [employer] Servicessaint luke's health system Soshowise Other Start: 34-36-2525Kgehamspq encounterBenjamin BallFPG [facility] ClinicStart: 07-08-2023 End: 82-88-4910iwlyyhiwvzBsaeupkj Ball Other noKiip Other Start: 27-06-1461Lxqolfzxc encounterBenjamin BallFPG [facility] ClinicStart: 07-07-2023 End: 19-99-4950fricnoeigpLvhpamfl Ball Other noKiip Other Start: 55-25-1872Mpciuwcks encounterBenjamin BallFPG [facility] ClinicStart: 06-25-2023 End: 33-82-4847Bciyus Colton Spangler [facility] Orthopedic SurgeonsComment on above:Status post total knee replacement, bilateral (Primary Dx)Start: 94-76-5633Fhlcbhihh encounterBenjamin BallFPG [facility] ClinicStart: 05-07-2023 End: 46-14-6844hcobybqbzuYexdbqri Ball Other noKiip Other Start: 07-80-0483Vlfeyttbh encounterBenjamin BallFPG [facility] ClinicStart: 04-24-2023 End: 96-80-0005maziaxetsgAqtvkste Ball Other noKiip Other Start: 72-25-5345Rdrwuxyuu encounterBenjamin BallFPG [facility] ClinicStart: 04-22-2023 End: 76-91-4128lljxaffeqrOrxsaaew Ball Other noKiip Other Start: 88-83-9451Ejcftxo encounter procedureBenjamin BallFPG [facility] ClinicStart: 04-19-2023 End: 85-35-2496lfxdfyaaedJlghisgx Ball Other noKiip Other start: 31-95-1125Vumxeztam encounterBenjamin EdnaG [facility] ClinicStart: 04-17-2023 End: 02-77-7428cgfumlroxwEanngmko Ball Other [facility] Soshowise Other Start: 15-41-4844Zjgglayav encounterBenjamin EdnaG [facility] ClinicStart: 02-11-2023 End: 16-13-8251Ernd/qhp telephone evaluation 5-10 minBrrudi Edouard DO Work Phone: [facility] Orthopedic SurgeonsComment on above:Hallux rigidus of left foot (Primary Dx)Start: 02-11-2023 End: 21-60-7988OvdpgoTpkock Mundy [facility] Orthopedic SurgeonsStart: 01-16-2023 End: 79-45-4217zdqnhfyiekORVGGLCK E BALLOhio Health AmbulatoryStart: 01-16-2023 End: 74-45-8788Xglhpq outpatient visit 10 minutesNena Huff DO Work Phone: [facility] Orthopedic SurgeonsComment on above:Status post total knee replacement, bilateral (Primary Dx)Start: 01-10-2023 End: 63-15-6439geojvznycuQdjcjhwb Ball Other [facility] Soshowise Other Start: 39-81-5977Ymyixfx encounter procedureBendonnymin BallNOYG [facility] ClinicStart: 11-19-2022 End: 25-17-0483alwupgebppIRGJAHUS E BALLOhio Health AmbulatoryStart: 11-19-2022 End: 91-38-6021Bklwhh outpatient visit 15 minutesMargie Edouard DO Work Phone: [facility]Leaguevine[facility] Orthopedic SurgeonsComment on above:Hallux rigidus of left foot (Primary Dx)Start: 10-08-2022 End: 49-65-2451surzlwkeceZGVNSXVF E BALLOhio Health AmbulatoryStart: 10-08-2022 End: 52-32-3375Ohomng outpatient visit 5 minutesGrecia Faith PA-C Work Phone: [facility] Orthopedic SurgeonsComment on above:Hallux rigidus of left foot (Primary Dx); Metatarsalgia, left footStart: 65-67-0158XtriraIuraqy Mundy [facility] Orthopedic SurgeonsStart: 08-28-2022 End: 38-70-0721KddrowNndlxv Schroeder Athletic TrainSumma Health [facility] Orthopedic SurgeonsStart: 08-28-2022 End: 02-57-9582Tbwlts outpatient new 30 minutesBrian Rebecca Edouard DO Work Phone: [place] Orthopedic SurgeonsComment on above:Hallux rigidus of left foot (Primary Dx); Eaton's metatarsalgia, leftStart: 03-19-2022 End: 09-81-8731gfpfoygkzaGV NONE LISTED REQUESTFacility:D8Rohyp: 08-11-2021 RefFlorentin Huff DO Work Phone: [facility] Orthopedic SurgeonsComment on above:Status post total knee replacement, bilateral (Primary Dx)Start: 08-11-2020 End: 88-25-0725Unjkeq ToroWakemed Cary Hospitalesther Todd Work Phone: [facility] Start: 07-20-2020 End: 60-16-5807Psmqiy outpatient visit 10 Stephen Huff Work Phone: [facility] Orthopedic SurgeonsComment on above:Status post total knee replacement, bilateral (Primary Dx)Start: 07-01-2019 End: 26-90-7205Hljocr outpatient visit 10 Stephen Huff Work Phone: [facility] Orthopedic SurgeonsComment on above:Status post total knee replacement, bilateral (Primary Dx)Start: 07-30-2017 Office/outpatient visit, est, level 3Ray Stew Calloway Work Phone: [employer] Orthopedic SurgeonsStart: 01-29-2017 End: 15-84-9752Ywodsg outpatient visit 15 minutesRay Stew Calloway Work Phone: [facility] Orthopedic SurgeonsComment on above:Primary osteoarthritis of right knee (Primary Dx);Status post total right knee replacement Procedures DateProcedureProcedure DetailPerforming ClinicianStart: 82-25-2308Kgmcr foot complete minimum 3 viewsStjuancarlos Lubin DPM Work Phone: Start: 80-03-9496Deuje dip stick/tablet rgnt auto w/o microscopyBulk Order ProviderStart: 70-59-7414Izk-scan artl krystal abdl/pel/scrot&/rpr orgn comMarlyn Hooper MANAGER CODE.UNIVERSITY SERVICES PROGRAM ASSOCIATE Work Phone: Start: 40-27-2406ZZ ABD LIVER VASCULARDonana maria Hooper MANAGER CODE.UNIVERSITY SERVICES PROGRAM ASSOCIATE Work Phone: Start: 75-70-9823Xaxfywouwq exam chest 2 viewsCotim Riggs MD Work Phone: Start: 44-26-6595CagfwoogcwkeftpeBNHBWZ NASEERStart: 06-13-8818Hb chest real time w/image documentationTriston Riggs MD Work Phone: Start: 44-25-7052Cjiaphjsvi exam chest 2 views Katerina Contreras PA-C Work Phone: Start: 26-00-1091Pdpep dip stick/tablet rgnt auto w/o microscopyZabrina Suarez MD Work Phone: Start: 73-25-1919So chest real time w/image documentationTriston Riggs MD Work Phone: Start: 77-35-1210Jrlqbzpvoo exam chest 2 viewsLouise Cesar MD Work Phone: Start: 51-93-5241Seilrzlxtishrjnbdvylgoghon transoral diagnosticSue Murillo MD Work Phone: Start: 47-65-1428VOOLFCUDMUI SKIN LESIONEmily Yanira Bynum MD Work Phone: Start: 67-34-2595Vcixnarhns exam chest 2 viewsTriston Riggs MD Work Phone: Start: 25-64-3889Jngdvpttxths ophthalmic imaging retinaJosintia Bajwa DO Work Phone: Start: 08-12-2024 End: 32-17-7973Ktkab medical xm&eval comprhnsv estab pt 1/>Early dry stage nonexudative age-related macular degeneration of both eyesAnne-Marie Bajwa DO Work Phone: comment on above:Early dry stage nonexudative age- related macular degeneration of both eyes (Primary Dx); Dry eyes; Blepharitis of upper and lower eyelids of both eyes, unspecified type; Bilateral posterior capsular opacification; Chalazion of left upper eyelidStart: 09-26-1088Aqybtiwx totalComment on above: Provided reference range is from 6-10 AM sample collection time.Cortisol Reference Range: 6-10 AM =4.8-19.5 ug/dL, 4-8 PM = 2.5-11.9 ug/dLStart: 33-49-1137Mo chest real time w/image documentationCotim Riggs MD Work Phone: Start: 24-87-1933Lrtmvtcpvr exam chest 2 viewsTita Diaztshire MANAGER CODE.UNIVERSITY SERVICES PROGRAM ASSOCIATE Work Phone: Start: 70-13-1713Rtvjwow serum plasma/whole blood Louise Cesar MD Work Phone: Start: 48-40-1025BS MANUAL DIFFUdchapis Cesar MD Work Phone: Start: 47-53-0641Uacj count misc body fluids w/differential countLouise Cesar MD Work Phone: Start: 69-91-0743ED BODY FLUIDLouise Cesar MD Work Phone: Start: 34-11-5472Nqggzxhrxh exam chest 2 Teressa Cesar MD Work Phone: Start: 93-42-3634Gigco 1996 panel - Serum or PlasmaXr [place] Work Phone: Start: 69-49-5076Ltekzxkjvju rig transoral hypopharynx crv esophSue Murillo MD Work Phone: Start: 35-31-0102Uujuteuqeyh flx dx w/collj spec when pfrmdMalipatricio Murillo MD Work Phone: Start: 80-62-9294ItllmlnrpnvGrhxyj Blades MD Work Phone: start: 77-07-1158Vi abdomen & pelvis w/contrast materialSue Murillo MD Work Phone: Start: 82-39-9252CXCQH ECOFIX CONTAINER PERFORMABLE Sue Murillo MD Work Phone: Start: 60-94-9337RJX EXTRA TUBESSue Murillo MD Work Phone: [phone]: 93-22-8210Xpvpl of calprotectin fecalSue Murillo MD Work Phone: [phone]: 45-88-4089Xdq agent det nucleic acid clostridium amp probeSue Murillo MD Work Phone: Start: 18-64-1015GSHS ELASTASE, FECALSue Murillo MD Work Phone: [phone]: 50-42-7068Ccoj ia giardiaSue Murillo MD Work Phone: Start: 44-39-5093Hvxv tthrc r-t 2d w/wom-mode compl spec&colr Surya Cesar MD Work Phone: Start: 28-66-3197CZHT ECHOLouise Cesar MD Work Phone: Start: 99-78-5094Fj diffusing capacityLouise Cesar MD Work Phone: Start: 20-96-5206Fcavct oxide gas determinationSdarrion Bravo APRN.[employer] PROGRAM ASSOCIATE Work Phone: Start: 83-77-8881Vjpanolxh rspse spmtry pre&post- brncdilat admnSdarrion Bravo MANAGER CODE.[employer] PROGRAM [employer]OCIATE Work Phone: Start: 22-24-7035Ubpxrjmtze exam chest 2 viewsRuma Oshea PA-C Work Phone: Start: 03-65-1565Rgnty 1996 panel - Serum or PlasmaXr HospStart: 28-52-1759Mz chest real time w/image documentationRoseann Rosario MD Work Phone: start: 11-12-2023 End: 01-30-2611Lfklwchipwltt needle/cath pleura w/imagingRenbobo Rosario MD Work Phone: start: 46-19-5907Jlvdixqzbj spect multiple studies Ronaldo Flood MD, PhD Work Phone: Start: 64-61-3928Bnhtgaxcks exam chest 2 viewsSuterrell Flood MD, PhD Work Phone: Start: 19-80-9248Fgpq Fast SmearDO [place] Work Phone: Start: 21-42-1964RYI Specimen ProcessingDO [place] Work Phone: Start: 70-14-5312Myasepbdkpj observation [Identifier] in Unspecified specimen by Gram stainDO [place] Work Phone: Start: 11-13-3148Xiin Fast SmearDO [place] Work Phone: Start: 54-96-5273HSW Specimen ProcessingDO [place] [facility] Work Phone: Start: 74-98-0587Yknqadcxbdx observation [Identifier] in Unspecified specimen by Gram stain [facility] Work Phone: Start: 87-81-8225Rjvjtu-up visitFollow-upKEVIN DINO MORAStart: 84-15-1458CXU screeningDR NONE LISTED REQUESTComment on above:Performed By: #### PSASC #### [facility] [address] [place] [address] Dr. Joni SandersScreening for malignant neoplasm of colonMikenjelly Mariscal Other Plan of Treatment DateCare ActivityDetailAuthorStart: 18-11-2161Ngkio microalbumin profile DTaP,Tdap,Td Vaccine (2 - Td or Tdap)[facility]: 78-09-7965Ycsrlndal for malignant neoplasm of colonNOMS HealthcareStart: 71-03-8190Thtzr panelLipid ScreeningMcCullough-Hyde Memorial Hospitaltart: 52-39-2889Sobsf panelLipid ScreeningMcCullough-Hyde Memorial Hospitaltart: 43-57-3642Qabhhhb vaccinationTetanus: Every 10yrsOhioHealthStart: 52-35-2790Zzcmqlyh ScreeningDiabetes ScreeningMcCullough-Hyde Memorial Hospitaltart: 01-26-2028 Diabetes ScreeningDiabetes ScreeningMcCullough-Hyde Memorial Hospitaltart: 92-94-7946Bfeafuiq ScreeningDiabetes ScreeningMcCullough-Hyde Memorial Hospitaltart: 53-47-1344Vokrophw Screening Diabetes ScreeningMcCullough-Hyde Memorial Hospitaltart: 27-17-8937Mdvrkyva ScreeningDiabetes ScreeningMcCullough-Hyde Memorial Hospitaltart: 93-53-7396Nnhfgzgb ScreeningDiabetes Screening [facility]: 25-36-6574Oslgqvsi ScreeningDiabetes ScreeningMcCullough-Hyde Memorial Hospitaltart: 04-46-0509Hhzixleu ScreeningDiabetes ScreeningAdena Pike Medical [facility] Start: 44-64-3756Wznbexfo ScreeningDiabetes ScreeningMcCullough-Hyde Memorial Hospitaltart: 64-17-2273Uadewkmi ScreeningDiabetes ScreeningMcCullough-Hyde Memorial Hospitaltart: 09-04-2027 Diabetes ScreeningDiabetes ScreeningMcCullough-Hyde Memorial Hospitaltart: 50-11-2507Rprntizd ScreeningDiabetes ScreeningMcCullough-Hyde Memorial Hospitaltart: 93-94-5834Sokezztp Screening Diabetes ScreeningMcCullough-Hyde Memorial Hospitaltart: 16-60-2316Fhhueurc ScreeningDiabetes ScreeningMcCullough-Hyde Memorial Hospitaltart: 21-72-7874Xpckbgsu ScreeningDiabetes Screening [facility]: 99-61-5566Qxysttyv ScreeningDiabetes ScreeningMcCullough-Hyde Memorial Hospitaltart: 24-41-6501Csacpdmb ScreeningDiabetes ScreeningAdena Pike Medical Center Start: 44-95-4842Xrfapddk ScreeningDiabetes ScreeningMcCullough-Hyde Memorial Hospitaltart: 42-67-3846Zqlufadl ScreeningDiabetes ScreeningMcCullough-Hyde Memorial Hospitaltart: 01-23-2027 Diabetes ScreeningDiabetes ScreeningMcCullough-Hyde Memorial Hospitaltart: 81-41-8443Ohtjfyva ScreeningDiabetes ScreeningMcCullough-Hyde Memorial Hospitaltart: 16-52-2852Sgdxhvgt Screening Diabetes ScreeningMcCullough-Hyde Memorial Hospitaltart: 96-73-9686Qzqdwqsi ScreeningDiabetes ScreeningMcCullough-Hyde Memorial Hospitaltart: 85-92-4807Kozwflif ScreeningDiabetes Screening [facility]: 34-30-6187Scmybmwm ScreeningDiabetes ScreeningMcCullough-Hyde Memorial Hospitaltart: 06-26-4284Uucszczmvdr Syncytial Virus Immunization: Risk, 60-74 Risk, or 75+ (1 - 1-dose 75+ series)Respiratory Syncytial Virus Immunization: Risk, 60-74 Risk, or 75+ (1 - 1-dose 75+ series) [facility]: 66-88-9763Dnozxyjfgg measurementSerum CreatinineMcCullough-Hyde Memorial Hospitaltart: 83-71-7235Igmvve PCP Team Chronic Disease VisitAnnual PCP Team Chronic Disease VisitMcCullough-Hyde Memorial Hospitaltart: 84-62-3655Bxkfppym blood count Hemoglobin/HematocritProtestant Deaconess Hospitalrt: 18-84-0553Sfugoeaukh measurement Serum CreatinineProtestant Deaconess Hospitalrt: 41-53-3628Uvkgzy PCP Team Chronic Disease VisitAnnual PCP Team Chronic Disease VisitMcCullough-Hyde Memorial Hospitaltart: 00-99-0585ZT Controlled (<130/80)BP Controlled (<130/80)[facility]: 81-25-7555IL Controlled (<130/80)BP Controlled (<130/80)[facility]: 11-13-2025 Annual PCP Team Chronic Disease VisitAnnual PCP Team Chronic Disease Visit [facility]: 23-20-2981RR Controlled (<130/80)BP Controlled (<130/80) [facility]: 42-48-5996Bxwumt PCP Team Chronic Disease VisitAnnual PCP Team Chronic Disease VisitMcCullough-Hyde Memorial Hospitaltart: 69-46-6364EL Controlled (<130/80)BP Controlled (<130/80)[facility]: 08-31-2025 End: 90-97-5307Wvreqpe encounter procedureNOMS BAIRES DERMStart: 22-57-9149DJ Controlled (<130/80)BP Controlled (<130/80)[facility]: 82-61-0806GO Controlled (<130/80)BP Controlled (<130/80)[facility]: 08-16-2025 End: 77-27-3209Eolrbfv encounter procedureNOMS NB OPHTStart: 57-33-6766Kwvohm PCP Team Chronic Disease VisitAnnual PCP Team Chronic Disease VisitMcCullough-Hyde Memorial Hospitaltart: 49-33-4697Fuqbmz PCP Team Chronic Disease VisitAnnual PCP Team Chronic Disease VisitMcCullough-Hyde Memorial Hospitaltart: 13-89-4385WE Controlled (<130/80)BP Controlled (<130/80)[facility]: 05-21-2025 End: 60-22-8473Wrpvwwk encounter grlcdicng25/05/2025 2:00 PM EST Office Visit Cardiology [address] [place] [address] [place] [address] [facility] [place] [address] 6 month follow upCardiologyComment on above:6 month follow up Start: 05-14-2025 End: 81-49-9408Omiedci encounter jfiwxgflr82/28/2025 8:00 AM EST Office Visit Gastroenterology [address] [address] Christie Palumbo APRN.[employer] PROGRAM ASSOCIATE [address] [place] [address] Marlyn Hooper RefferedGastroenterologyComment on above: Marlyn Hooper RefferedStart: 45-24-5521Bzrlcj PCP Team Chronic Disease Visit Annual PCP Team Chronic Disease VisitMcCullough-Hyde Memorial Hospitaltart: 37-89-9072PM Controlled (<130/80)BP Controlled (<130/80)[facility]: 05-12-2025 End: 71-00-3740Vygpjeu encounter fxwoahwjv85/26/2025 8:25 AM EST Office Visit Gastroenterology [address] [address] Luis Valentine MD [address] [place] [address] Marlyn Camarillor RefferedGastroenterologyComment on above:Marlyn Camarillor RefferedStart: 75-87-9129Hxqmtkdam for malignant neoplasm of colon [facility]: 04-07-2025 End: 04-66-9175Agitbdn encounter jlumjrykq91/22/2025 2:45 PM EDT Procedure Visit [facility] [address] [place] [address] Jamel Lubin DPM [address] [place] [address] [facility] PodiatryStart: 03-25-2025 End: 04-98-0109Tyydgos encounter mkbscpkoh04/09/2025 11:15 AM EDT Office Visit [facility] [address] [place] [address] Jamel Lubin DPM [address] [place] [address] [facility] PodiatryStart: 03-17-2025 End: 12-53-2754Fippoiz encounter fuufgkrhk51/01/2025 10:15 AM EDT Office Visit [facility] [address] [place] [address] Jamel Lubin, DPM [address] [place] [address] [facility] PodiatryStart: 03-12-2025 End: 09-47-5267Zdgumfu encounter jbodznpfr95/26/2025 8:45 AM EDT Office Visit [facility] [address] [place] [address] Jamel Lubin DPM [address] [place] [address] ArrivedNOMS Thibodeaux PodiatryComment on above:ArrivedStart: 03-09-2025 End: 33-19-7346Kzozwny encounter prmmuymqy10/23/2025 1:15 PM EDT [place] [address] [place] [address] [place] [address] [facility] [address] [place], [place] [id number] Follow-upJose Antonio Hopper MDComment on above:Follow-upStart: 02-25-2025 End: 47-94-5320Fgfkqyj encounter wukuumrsx35/11/2025 10:20 AM EDT Office Visit [facility] [address] [address] Zabrina Suarez MD [address] [place] [address] Elevated serum creatinine [R79.89]Kidney Medicine [facility] Cleveland-FairhillComment on above:Elevated serum creatinine [R79.89]Start: 02-19-2025 End: 50-04-8440Ercxtgi encounter qnuptaqqa20/05/2025 1:30 PM EDT Appointment Radiology [address] [address] Other ascites [R18.8]RadiologyComment on above:Other ascites [R18.8]Start: 53-04-2733Hicbbcifw vaccinationInfluenza Vaccine (#1)[facility]: 71-12-8353Dbzcsl PCP Team Chronic Disease VisitAnnual PCP Team [facility] VisitA[facility] Start: 36-08-5947HK Controlled (<130/80)BP Controlled (<130/80)[facility] Start: 02-09-2025 End: 49-56-7034Vzaapixhjcsht metabolic 2000 panel - Serum or PlasmaCOMPREHENSIVE METABOLIC PANEL Lab Routine Stage 3a chronic kidney disease (HCC) Expected: 02/09/2025, Expires: 05/10/2025P [facility] Work Phone: comment on above:Expected: 02/09/2025, Expires: 05/10/2025Start: 68-99-1983RA Controlled (<130/80)BP Controlled (<130/80) [facility]: 02-02-2025 End: 41-42-1244Vzxhwghbl to same day surgery udhdte6202/02/2025 9:30 AM EDT - 02/02/2025 11:20 AM EDT Surgery Angio [address] [place] [address] R ADIOLOGY SPECIALIST [address] [place] [address] TRANSCATHETER BIOPSY AngioComment on above:TRANSCATHETER BIOPSYStart: 39-53-8194Gsgoakqtkk hospital visit by mjggnvazu21/19/2025 9:30 AM EDT Hospital Encounter Angio [address] [place] [address] [employer] SALES REPRESENTATIVE [address] [place] [address] Elevated alkaline phosphatase level [R74.8]AngioComment on above:Elevated alkaline phosphatase level [R74.8]Start: 02-02-2025 End: 68-76-1714Rxiedfrrjhhhp biopsyTRANSCATHETER BIOPSY Elevated alkaline phosphatase level 02/02/2025 9:30 AM EDTMC ANGIO IS2Xzxhu: 01-26-2025 End: 08-04-7033Wakzqjv encounter qmvbijspz71/12/2025 1:00 PM EDT [place] [address] [place] [id number] [place] [address] [place] [address] Follow-upJose Antonio Hopper MDComment on above:Follow-upStart: 83-93-5502Faknmn PCP Team Chronic Disease VisitAnnual PCP Team Chronic Disease VisitMcCullough-Hyde Memorial Hospitaltart: 01-11-2025 End: 46-73-8103Ydqbrpr encounter rohqtbgww93/28/2025 9:30 AM EDT Office Visit Pulmonary Medicine [address] [address] Triston Riggs MD [address] [place] [address] 4-6 weeksPulmonary MedicineComment on above:4-6 weeksStart: 01-08-2025 End: 22-00-5104Yoijcwv encounter onqlharvh29/25/2025 1:00 PM EDT Appointment Radiology [address] [place] [address] [place] [address] XRCHEST 2V FRONTAL/LATRadiologyComment on above:XR CHEST 2V FRONTAL/LATStart: 12-22-2024 End: 67-20-2700gryxhzwgbx45/08/2025 6:00 PM EDT [facility] Gastroenterology [address] [address] Marlyn Hooper APRN.[employer] PROGRAM ASSOCIATE [address] [place] [address] Elevated alkaline phosphatase leveGastroenterologyComment on above:Elevated alkaline phosphatase leveStart: 12-22-2024 End: 51-58-3706Fxgor 1 antitrypsin [Mass/volume] in Serum or Plasma OEVGW-5-WKKFFKVWQAJ Lab Routine Elevated alkaline phosphatase level Expected: 12/22/2024, Expires: 03/23/2025leveland ClinicComment on above:Expected: 12/22/2024, Expires: 03/23/2025Start: 12-22-2024 End: 61-30-6399CIO BY IFA WITH REFLEXANA BY IFA WITH REFLEX Lab Routine Elevated alkaline phosphatase level Expected: 12/22/2024, Expires: 03/23/2025[facility] ClinicComment on above:Expected: 12/22/2024, Expires: 03/23/2025Start: 12-22-2024 End: 77-96-6125Vdrqu metabolic 2000 panel - Serum or PlasmaBASIC METABOLIC PANEL Lab Routine Hypokalemia Expected: 12/22/2024, Expires: 03/23/2025P JOSE ANTONIO HOPPER MD [facility] Work Phone: comment on above:Expected: 12/22/2024, Expires: 03/23/2025Start: 12-22-2024 End: 08-74-1536ZRE panel - Blood by Automated countCOMPLETE BLOOD COUNT Lab Routine Elevated alkaline phosphatase level Expected: 12/22/2024, Expires: 03/23/2025[facility] ClinicComment on above:Expected: 12/22/2024, Expires: 03/23/2025Start: 12-22-2024 End: 74-45-6145Lormwsn hepatitis differentiation between hepatitis B and C virus panel - Serum or PlasmaHEP REMOTE PANEL BL Lab Routine Elevated alkaline phosphatase level Expected: 12/22/2024, Expires: 03/23/2025[facility] Comment on above:Expected: 12/22/2024, Expires: 03/23/2025Start: 12-22-2024 End: 87-25-8977Udhzosbopoqyr metabolic 2000 panel - Serum or PlasmaCOMPREHENSIVE METABOLIC PANEL Lab Routine Elevated alkaline phosphatase level Expected: 12/22/2024,Expires: 03/23/2025[facility] ClinicComment on above:Expected: 12/22/2024, Expires: 03/23/2025Start: 12-22-2024 End: 83-26-9923Reogbskedctpzcp IgM Ab [Units/volume] in Serum or PlasmaCMV IGM AB Lab Routine Elevated alkaline phosphatase level Expected: 12/22/2024, Expires: 03/23/2025[facility] ClinicComment on above:Expected: 12/22/2024, Expires: 03/23/2025Start: 12-22-2024 End: 18-35-2774Kyjglrkj [Mass/volume] in Serum or PlasmaFERRITIN Lab Routine Elevated alkaline phosphatase level Expected: 12/22/2024, Expires: 03/23/2025 [facility] CenterComment on above:Expected: 12/22/2024, Expires: 03/23/2025Start: 12-22-2024 End: 81-29-6819Xpngr glutamyl transferase [Enzymatic activity/volume] in Serum or PlasmaGGT Lab Routine Elevated alkaline phosphatase level Expected: 12/22/2024, Expires: 03/23/2025[facility] ClinicComment on above:Expected: 12/22/2024, Expires: 03/23/2025Start: 12-22-2024 End: 40-34-7871Abac and Iron binding capacity panel - Serum or PlasmaIRON AND TIBC Lab Routine Elevated alkaline phosphatase level Expected: 12/22/2024, Expires: 03/23/2025[facility] ClinicComment on above:Expected: 12/22/2024, Expires: 03/23/2025Start: 12-22-2024 End: 66-51-9741Gmdom kidney microsomal Ab [Titer] in Serum by Immunofluorescence LIVER-KIDNEY MICROSOME ANTIBODY, IGG Lab Routine Elevated alkaline phosphatase level Expected: 12/22/2024, Expires: 03/23/2025[facility] ClinicComment on above: Expected: 12/22/2024, Expires: 03/23/2025Start: 12-22-2024 End: 85-18-6174Zqeaauzbbvmf Ab [Presence] in Serum by Immunofluorescence MITOCHONDRIAL M2 IGG SERUM Lab Routine Elevated alkaline phosphatase level Expected: 12/22/2024, Expires: 03/23/2025[facility] ClinicComment on above: Expected: 12/22/2024, Expires: 03/23/2025Start: 12-22-2024 End: 72-91-0925LJ panel - Platelet poor plasma by Coagulation assayPROTHROMBIN TIME Lab Routine Elevated alkaline phosphatase level Expected: 12/22/2024, Expires: 03/23/2025[facility] ClinicComment on above:Expected: 12/22/2024, Expires: 03/23/2025Start: 12-22-2024 End: 09-12-9027Kcrsye muscle Ab [Presence] in SerumSMOOTH MUSCLE AB SCR Lab Routine Elevated alkaline phosphatase level Expected: 12/22/2024, Expires: 03/23/2025[facility] ClinicComment on above:Expected: 12/22/2024, Expires: 03/23/2025Start: 12-16-2024 End: 84-63-5205Yluoemu encounter procedureVascular SurgeryComment on above: Extremity cyanosis [R23.0]Start: 12-16-2024 End: 09-66-4094Cjrlyew encounter vajxruphq01/02/2025 12:30 PM EDT Office Visit Vascular Surgery [address] [place] [address] Extremity cyanosis [R23.0]Vascular SurgeryComment on above:Extremity cyanosis [R23.0]Start: 12-15-2024 End: 25-28-6353Sthqgdz encounter zvuswqifh10/01/2025 11:15 AM EDT [place] [address] [place] [address] [place] [address] [place] [address] Follow-upJose Antonio Hopper MDComment on above:Follow-upStart: 12-03-2024 End: 58-22-5419pckhjshjdt13/19/2025 8:30 AM EDT [facility] Gastroenterology [address] [address] Marlyn Hooper APRN.[employer]IV[employer] SERVICES PROGRAM ASSOCIATE [address] [place] [address] Elevated alkaline phosphatase leveGastroenterologyComment on above:Elevated alkaline phosphatase leveStart: 11-23-2024 End: 58-62-5192Egtoyxb encounter procedureRadiologyComment on above:Hepatomegaly [R16.0]Extremity cyanosis [R23.0]CXRH&P Established Patient VisitStart: 11-20-2024 End: 36-46-9943SqhgcfavjyxwdjotHJSF Cardiology Routine Extremity cyanosis Expected: 11/20/2024, Expires: 11/20/2025[facility] ClinicComment on above: Expected: 11/20/2024, Expires: 11/20/2025Start: 11-20-2024 End: 92-41-1150Wvyvdii encounter tqxfovbmw66/06/2025 9:00 AM EDT Office Visit Cardiology [address] [place] [address] [place] [address] [facility] [place] [address] PAD, LE with poor perfusionCardiologyComment on above:PAD, LE with poor perfusionStart: 11-19-2024 End: 42-86-6632Zwbuixg encounter procedurePulmonary MedicineComment on above:f/u visit/Dr. KENNEDY will see pt.Start: 11-19-2024 End: 82-36-4123efiocetote35/05/2025 10:30 AM EDT [facility] Gastroenterology [address] [phone] Marlyn Hooper APRN.[employer]IV[employer] SERVICES PROGRAM ASSOCIATE [address] [place] [address] Elevated alkaline phosphatase leveGastroenterologyComment on above: Elevated alkaline phosphatase leveStart: 11-14-2024 End: 39-09-9301Telgdvcqxzgra metabolic 2000 panel - Serum or PlasmaCOMPREHENSIVE METABOLIC PANEL Lab Routine Hepatomegaly Expected: 11/14/2024, Expires: 02/13/2025[facility] ClinicComment on above:Expected: 11/14/2024, Expires: 02/13/2025Start: 11-14-2024 End: 59-17-8573Ghhhinoqe [Mass/volume] in Serum or PlasmaMAGNESIUM Lab Routine Hypomagnesemia Expected: 11/14/2024, Expires: 02/13/2025[facility] ClinicComment on above:Expected: 11/14/2024, Expires: 02/13/2025Start: 11-13-2024 End: 05-56-0792Ddyhq hepatitis 2000 panel - SerumHEP ACUTE PANEL BL Lab Routine Hepatomegaly Expected: 11/13/2024, Expires: 02/12/2025P JOSE ANTONIO HOPPER MD [facility] Work Phone: comment on above:Expected: 11/13/2024, Expires: 02/12/2025Start: 11-13-2024 End: 75-16-0979WUNFMWFRXH HEPATITIS DIAGNOSTIC PANELAUTOIMMUNE HEPATITIS DIAGNOSTIC PANEL Lab Routine Hepatomegaly Expected: 11/13/2024, Expires: leveland ClinicComment on above:Expected: 11/13/2024, Expires: 02/12/2025 Start: 11-13-2024 End: 48-76-7697GZNIWL BLOODCOPPER BLOOD Lab Routine Hepatomegaly Expected: 11/13/2024, Expires: 02/12/2025[facility] ClinicComment on above:Expected: 11/13/2024, Expires: 02/12/2025Start: 11-13-2024 End: 42-80-7564Mqxgyigdn C virus RNA [Units/volume] (viral load) in Serum or Plasma by BRYN with probe detectionHEPATITIS C VIRUS (HCV) RNA, QUANTITATIVE PCR, PLASMA/SERUM Lab Routine Hepatomegaly Expected: 11/13/2024, Expires: 02/12/2025 [facility] ClinicComment on above:Expected: 11/13/2024, Expires: 02/12/2025Start: 11-13-2024 End: 71-97-5699Sdve and Iron binding capacity panel - Serum or PlasmaIRON AND TIBC Lab Routine Hepatomegaly Expected: 11/13/2024, Expires: 02/12/2025[facility] ClinicComment on above:Expected: 11/13/2024, Expires: 02/12/2025Start: 11-13-2024 End: 63-71-3905Dhlbgsi encounter habnlhcej04/30/2025 1:00 PM EDT Office [place] [address] [place] [address] [place] [address] [place] [address] Follow-upJose Antonio Hopper MDComment on above:Follow-upStart: 11-04-2024 End: 42-91-2335Pysbptr encounter procedureEncompass Health Radiology CT ScanComment on above:CT ENTEROGRAPHY W IVCONStart: 10-23-2024 End: 24-93-7997Ntvppvs encounter procedureEncompass Health Draw StationComment on above:LABUS ABD RIGHT UPPER QUADRANTStart: 10-19-2024 End: 57-66-5644Paswgvx [Enzymatic activity/volume] in Serum or PlasmaAMYLASE Lab Routine Serositis ([facility]) Expected: 10/19/2024, Expires: 01/18/2025[facility] ClinicComment on above:Expected: 10/19/2024, Expires: 01/18/2025Start: 10-19-2024 End: 09-86-6339WNM SUBCLASSES BLDIGG SUBCLASSES BLD Lab Routine Serositis ([facility]) Expected: 10/19/2024, Expires: 01/18/2025[facility] Work Phone: comment on above:Expected: 10/19/2024, Expires: 01/18/2025Start: 10-19-2024 End: 42-96-6197Dimhaz [Enzymatic activity/volume] in Serum or PlasmaLIPASE Lab Routine Serositis ([facility]) Expected: 10/19/2024, Expires: 01/18/2025[facility] ClinicComment on above:Expected: 10/19/2024, Expires: 01/18/2025Start: 10-15-2024 End: 79-34-6462UVE PHOS ISOENZYM [facility] ClinicComment on above:Expected: 10/15/2024, Expires: 01/14/2025Start: 10-14-2024 End: 92-00-6084Uugbqzp encounter procedurePulmonary MedicineComment on above:EST pt visit in H23 w/Dr Riggs post 10/02 procedureabdominal painStart: 10-13-2024 End: 21-81-9706Phxzdfl encounter ufaiewgrc55/29/2025 1:00 PM EDT Appointment Radiology [address] [place] [address] [place] [address] CHEST XRAY RadiologyComment on above:CHEST XRAYStart: 10-02-2024 End: 61-28-8618Uvvyhffhmozvi needle/cath pleura w/imagingTHORACENTESIS NEEDLE OR CATHETER ASPIRATION OF THE PLEURAL SPACE W IMAGING GUIDANCE Bronchiolar disease 10/02/2024 11:42 AM [facility] S16Befbk: 10-02-2024 End: 16-59-9134Hnmveflgh to same day surgery jdmrbb1110/02/2024 10:30 AM EDT - 10/02/2024 11:30 AM EDT Surgery Admitting [address] [id number] Merlyn Zavala MD [address] [place] [address] THORACENTESIS NEEDLE OR CATHETER ASPIRATION OF THE PLEURAL SPACE W IMAGING GUIDANCEAdmittingComment on above:THORACENTESIS NEEDLE OR CATHETER ASPIRATION OF THE PLEURAL SPACE W IMAGING GUIDANCEStart: 10-02-2024 Subsequent hospital visit by dwijbnfen89/18/2025 10:30 AM EDT Hospital Encounter Admitting [address] [address] Merlyn Zavala MD [address] [place] [address] Bronch iolar disease [J98.09]AdmittingComment on above: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] Start: 10-02-2024 End: 04-12-1248Qjotjfbvvweqe needle/cath pleura w/imagingTHORACENTESIS NEEDLE OR CATHETER ASPIRATION OF THE PLEURAL SPACE W IMAGING GUIDANCE Bronchiolar disease 10/02/2024 10:30 AM [facility] Q77Xkofj: 09-25-2024 End: 32-53-4035Ekmphtb encounter procedureGastroenterologyComment on above: Esophageal dysphagia [R13.19]Start: 09-22-2024 End: 60-82-2457Dmwphgl encounter procedureJose Antonio Hopper MDComment on above: Follow-upStart: 09-11-2024 End: 44-35-9007Pbspd metabolic 2000 panel - Serum or PlasmaBASIC METABOLIC PANEL Lab Routine Hypokalemia Expected: 09/11/2024, Expires: 12/11/2024P JOSE ANTONIO HOPPER MD [facility] Work Phone: comment on above:Expected: 09/11/2024, Expires: 12/11/2024Start: 09-11-2024 End: 67-14-7399ZKN panel - Blood by Automated countCOMPLETE BLOOD COUNT Lab Routine Anemia, unspecified type Expected: 09/11/2024, Expires: 12/11/2024 [facility]:Expected: 09/11/2024, Expires: 12/11/2024Start: 09-08-2024 End: 17-58-4351Xfsdzxedi to same day surgery zqrvlb1109/08/2024 10:30 AM EDT - 09/08/2024 11:30 AM EDT Surgery Admitting [address] [address] Roseann Rosario MD [address] [place] [address] THORACENTESIS NEEDLE OR CATHETER ASPIRATION OF THE PLEURAL SPACE W IMAGING GUIDANCEAdmittingComment on above:THORACENTESIS NEEDLE OR CATHETER ASPIRATION OF THE PLEURAL SPACE W IMAGING GUIDANCEStart: 09-08-2024 Subsequent hospital visit by vtctxaymv97/25/2025 10:30 AM EDT Hospital Encounter Admitting [address] [address] Roseann Rosario MD [address] [place] [address] Bronchiola r disease [J98.09]AdmittingComment on above: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]Start: 09-08-2024 End: 78-03-3737Qqignowitzxzr needle/cath pleura w/imagingTHORACENTESIS NEEDLE OR CATHETER ASPIRATION OF THE PLEURAL SPACE W IMAGING GUIDANCE Bronchiolar disease 09/08/2024 10:30 AM EDTMC PULM LAB U18Yigyn: 09-04-2024 End: 47-53-7207Weiklmd encounter qbhvamofv66/21/2025 1:15 PM EDT [place] [address] [place] [address] [place] [address] [facility] [place] [address] Follow-upJose Antonio Hopper MDComment on above:Follow-upStart: 09-04-2024 End: 81-08-3810Uwtjklnss to same day surgery lheizo7909/04/2024 10:30 AM EDT - 09/04/2024 11:30 AM EDT Surgery Admitting [address] [address] James Enamorado MD [address] [place] [address] THORACENTESIS NEEDLE OR CATHETER ASPIRATION OF THE PLEURAL SPACE W IMAGING GUIDANCEAdmittingComment on above:THORACENTESIS NEEDLE OR CATHETER ASPIRATION OF THE PLEURAL SPACE W IMAGING GUIDANCEStart: 09-04-2024 Subsequent hospital visit by mifldtemw70/21/2025 10:30 AM EDT Hospital Encounter Admitting [address] [address] James Enamorado MD [address] [place] [address] Bronchio lar disease [J98.09]AdmittingComment on above: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]Start: 09-04-2024 End: 38-97-2515Jgshbnpxevnck needle/cath pleura w/imagingMC PULM LAB E14Usqsd: 09-01-2024 End: 83-10-1221Oazencxfxmqsa metabolic 2000 panel - Serum or PlasmaCOMPREHENSIVE METABOLIC PANEL Lab Routine Recurrent 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 Expected: 09/01/2024,Expires: 12/01/2024[facility] Work Phone: comment on above:Expected: 09/01/2024, Expires: 12/01/2024Start: 09-01-2024 End: 39-99-2366Pdkrnjiin [Mass/volume] in Serum or PlasmaMAGNESIUM Lab Routine Recurrent 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 Expected: 09/01/2024, Expires: 12/01/2024 [facility] CenterComment on above:Expected: 09/01/2024, Expires: 12/01/2024Start: 08-28-2024 End: 84-16-1994Mjbdxxblelx [Units/volume] in Serum or PlasmaCP [facility] Work Phone: comment on above:Expected: 08/28/2024, Expires: 11/27/2024Start: 08-27-2024 End: 93-97-2894Hbuqxph encounter procedureNOMS SWS DERMComment on above:Arrived Start: 08-24-2024 End: 37-12-2199Qibrobiitrnmi metabolic 2000 panel - Serum or PlasmaAdena Pike Medical CenterComment on above:Expected: 08/24/2024, Expires: 11/23/2024Start: 08-24-2024 End: 95-36-3729Cglargjuk [Mass/volume] in Serum or PlasmaAdena Pike Medical CenterComment on above:Expected: 08/24/2024, Expires: 11/23/2024Start: 08-24-2024 End: 62-22-5248Upnabcymwzn [Units/volume] in Serum or PlasmaMorrow [facility] Work Phone: Comment on above:Expected: 08/24/2024, Expires: 11/23/2024Start: 08-24-2024 End: 60-44-1605Kbkvxcm encounter ytvsfujzu12/10/2025 11:00 AM EDT Office Visit Gastroenterology [address] [address] Sue Murillo MD [address] [place] [address] DiarrheaGastroenterologyComment on above:DiarrheaStart: 08-21-2024 End: 51-10-5920Agaic metabolic 2000 panel - Serum or PlasmaBASIC METABOLIC PANEL Lab Routine Recurrent 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 Expected: 08/21/2024, Expires: 11/20/2024[facility] Work Phone: comment on above:Expected: 08/21/2024, Expires: 11/20/2024Start: 08-18-2024 End: 03-21-3310Aqwmzbo encounter hojxqgngo75/04/2025 2:00 PM EST Office Visit Thoracic Clinic [address] [place] [address] Della Barragan APRN.[employer] [address] [place] [address] Pleural EffusionThoracic ClinicComment on above:Pleural EffusionStart: 08-13-2024 End: 09-23-9230Duzfkry encounter kedtdgkfr13/27/2025 9:30 AM EST Appointment Radiology [address] [place] [address] CHEST XR RadiologyComment on above:CHEST XRStart: 08-12-2024 End: 52-57-7186Omzhkxe encounter nahiwgekd21/26/2025 3:00 PM EST Office Visit [facility] [address] [place] [phone] Anne-Marie Bajwa DO [address] [place] [address] ArrivedJAYME CUI OPHTComment on above:ArrivedStart: 07-28-2024 End: 37-22-9277Llmqtzzqd [Mass/volume] in Serum or PlasmaMAGNESIUM Lab Routine Hypomagnesemia Expected: 07/28/2024, Expires: 10/27/2024[facility] ClinicComment on above:Expected: 07/28/2024, Expires: 10/27/2024Start: 07-24-2024 End: 068915-ueijtoahtryhcd D3 [Mass/volume] in Serum or PlasmaVITAMIN D 25 HYDROXY Lab Routine Fatigue, unspecified type Expected: 07/24/2024, Expires: 10/23/2024[facility] ClinicComment on above:Expected: 07/24/2024, Expires: 10/23/2024Start: 07-24-2024 End: 17-36-1652Lwkxszcln (Vitamin B12) [Mass/volume] in Serum or PlasmaVITAMIN B12 Lab Routine Fatigue, unspecified type Expected: 07/24/2024, Expires: 10/23/2024[facility] Work Phone: comment on above:Expected: 07/24/2024, Expires: 10/23/2024Start: 07-24-2024 End: 28-65-2886Hcqtrqkd [Mass/volume] in Serum or PlasmaCORTISOL, SERUM Lab Routine Fatigue, unspecified type Expected: 07/24/2024, Expires: 10/23/2024 [facility] CenterComment on above:Expected: 07/24/2024, Expires: 10/23/2024Start: 07-21-2024 End: 36-72-5438Pbcoq metabolic 2000 panel - Serum or PlasmaBASIC METABOLIC PANEL Lab Routine Anasarca Expected: 07/21/2024, Expires: 10/20/2024[facility] Work Phone: comment on above:Expected: 07/21/2024, Expires: 10/20/2024Start: 07-21-2024 End: 94-91-3485Vmysepu encounter awdqruzdw50/04/2025 2:00 PM EST Office [place] [address] [place] [address] [place] [address] [place], [place] [id number] Follow-upJose Antonio Hopper MDComment on above:Follow-upStart: 07-20-2024 End: 88-81-8009IR Chest AP right lateral-decubitusXR CHEST 1V DECUBITUS RIGHT Radiology Routine Pleural effusion Expected: 07/20/2024, Expires: 08/19/2025 [facility] CenterComment on above:Expected: 07/20/2024, Expires: 08/19/2025Start: 07-20-2024 End: 63-30-3802QK Chest PA and LateralXR CHEST 2V FRONTAL/LAT Radiology Routine Pleural effusion Expected: 07/20/2024, Expires: 08/19/2025[facility] Work Phone: Comment on above:Expected: 07/20/2024, Expires: 08/19/2025Start: 07-20-2024 End: 48-42-0563Qqbcqtb encounter wydqwpjxv39/03/2025 1:00 PM EST Office Visit Pulmonary Medicine [address] [place], [place] [phone] Triston Riggs MD [address] [place] [address] Katerina Contreras PA-C [address] [place] [address] H&P Established PatientPulmonary Medicine Comment on above:H&P Established PatientStart: 06-22-2024 End: 42-81-3766BHPW FLUID CELL COUNTBODY FLUID CELL COUNT Lab Routine Pleural effusion Pleuritis Lymphocytic colitis Pericardial effusion (noninflammatory) Interstitial pulmonary disease (HCC) Expected: 06/22/2024, Expires: 09/21/2024 [facility] CenterComment on above:Expected: 06/22/2024, Expires: 09/21/2024Start: 06-22-2024 End: 63-28-8398AEQT CYTOMETRY FOR LEUKEMIA/LYMPHOMA (FCLL)FLOW CYTOMETRY FOR LEUKEMIA/LYMPHOMA (FCLL) Lab Routine Pleural effusion Pleuritis Lymphocytic colitis Pericardial effusion (noninflammatory) Interstitial pulmonary disease (HCC) Expected: 06/22/2024, Expires: 09/21/2024[facility] ClinicComment on above: Expected: 06/22/2024, Expires: 09/21/2024Start: 06-22-2024 End: 88-08-4901Hhwjvsm [Mass/volume] in Body fluidGLUCOSE, BODY FLUID Lab Routine Pleural effusion Pleuritis Lymphocytic colitis Pericardial effusion (noninflammatory) Interstitial pulmonary disease (HCC) Expected: 06/22/2024, Expires: 09/21/2024[facility] ClinicComment on above:Expected: 06/22/2024, Expires: 09/21/2024Start: 06-22-2024 End: 04-44-9411Krbswbh dehydrogenase [Enzymatic activity/volume] in Body fluid LACTATE DEHYDROGENASE, BODY FLUID Lab Routine Pleural effusion Pleuritis Lymphocytic colitis Pericardial effusion (noninflammatory) Interstitial pulmonary disease (HCC) Expected: 06/22/2024, Expires:09/21/2024[facility] Comment on above:Expected: 06/22/2024, Expires: 09/21/2024Start: 06-22-2024 End: 14-21-0483Ivakkausrmdre needle/cath pleura w/imagingTHORACENTESIS NEEDLE OR CATHETER ASPIRATION OF THE PLEURAL SPACE W IMAGING GUIDANCE Bronchiolar disease 06/22/2024 10:[address] [facility] PULM LAB E19Gwrfc: 06-22-2024 End: 16-39-7726Shwvsmi encounter tgqswguav12/06/2025 9:00 AM EST Office Visit Pulmonary Medicine [address] [place] [address] Triston Riggs MD [address] [place] [address] NPVPulmonary MedicineComment on above:NPVStart: 24-25-6647Kagkrlg Directive DiscussionAdvance Directive DiscussionMcCullough-Hyde Memorial Hospitaltart: 01-01-2025Medicare Advantage Annual Wellness VisitMedicare Advantage Annual Wellness VisitMcCullough-Hyde Memorial Hospitaltart: 06-12-2024 End: 83-31-2042Yfvddyi encounter afzuhyxeo56/27/2024 1:30 PM EST Office [place] [address] [place] [address] [place] [address] [place], [place] [id number] Follow-upJose Antonio Hopper MDComment on above:Follow-upStart: 06-01-2024 End: 03-14-3212Fztncmo encounter tovexenif32/16/2024 12:30 PM EST Office Visit Rheumatology [address] [address] Steffen Mccarty MD [address] [place] [address] 2mo f/uRheumatologyComment on above:2mo f/uStart: 05-26-2024 End: 87-37-7081Gbaunet encounter mxrcmping20/10/2024 4:30 PM EST Office Visit Gastroenterology [address] [place] [phone] Sue Murillo MD [address] [place] [phone] Diarrhea Follow UpGastroenterologyComment on above:Diarrhea Follow Up Start: 05-20-2024 End: 11-18-9242Hzihi metabolic 2000 panel - Serum or PlasmaBASIC METABOLIC PANEL Lab Routine Recurrent 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 Anasarca Expected: 05/20/2024, Expires: 5CP [facility] Work Phone: comment on above:Expected: 05/20/2024, Expires: 08/19/2024Start: 05-19-2024 End: 50-76-1873Wseglgn encounter jpkpawsvc00/03/2024 11:30 AM EST Office [place] [address] [place] [address] [place] [address] [place] [address] Follow-upJose Antonio Hopper MDComment on above:Follow-upStart: 05-18-2024 End: 42-14-5642Ecodanbj identified in Body fluid by CultureBODY FLUID CULTURE AND GRAM STAIN Microbiology Routine Pleural effusion Expected: 05/18/2024, Expires: 5[facility] ClinicComment on above:Expected: 05/18/2024, Expires: 08/17/2024Start: 05-18-2024 End: 59-70-3416HHTGIRHR NON-[facility] HospitalComment on above:Expected: 05/18/2024, Expires: 08/17/2024Start: 05-18-2024 End: 70-88-0655KRXTP ACIDS PROFILE, ESSENTIALAdena Pike Medical Center Foundation Work Phone: Comment on above:Expected: 05/18/2024, Expires: 08/17/2024Start: 05-18-2024 End: 91-81-3304KHTU CYTOMETRY FOR LEUKEMIA/LYMPHOMA (FCLL)[facility] Comment on above:Expected: 05/18/2024, Expires: 08/17/2024Start: 05-18-2024 End: 46-41-5125Njrmcthevyhvo identified in Unspecified specimen by CultureAFB CULT + STAIN Microbiology Routine Pleural effusion Expected: 05/18/2024, Expires: 08/17/2024[facility] ClinicComment on above:Expected: 05/18/2024, Expires: 08/17/2024Start: 05-18-2024 End: 24-45-1628Eljaayt encounter caxcracww43/02/2024 10:40 AM EST Office Visit Pulmonary Medicine [address] [place] [address] Louise Cesar MD [address] [place], [place] [phone] follow upPulmonary MedicineComment on above:follow upStart: 05-13-2024 End: 11-17-7095Bjjtmkx encounter fykxqzuqt14/27/2024 11:30 AM EST Office [place] [address] [place] [address] [place] [address] [place] [address] Follow-upJose Antonio Hopper MDComment on above:Follow-upStart: 04-28-2024 End: 79-31-5699Ggvvegf encounter procedureAdena Pike Medical Center Endoscopy [facility] HospitalComment on above:Diarrhea, unspecified type [R19.7]Start: 04-20-2024 End: 77-35-7952Cfnlsphoed gipgwiwqlnnb81/04/2024 11:59 PM EST Anesthesia Event [facility] [address] [place] [phone] Silvino Henley APRN.CRNAOhiohealth Nelsonville Health CenterStart: 04-20-2024 End: 85-18-5845Rdutxnb encounter gifkpekoe12/04/2024 12:00 PM EST Office Visit Gastroenterology [address] [address] Sue Murillo MD [address] [place] [address] Diarrhea, unspecified type [R19.7]GastroenterologyComment on above: Diarrhea, unspecified type [R19.7]Start: 04-13-2024 End: 44-72-3048Baptwan encounter zjgjoxnmt91/28/2024 11:00 AM EDT Office Visit Rheumatology [address] [address] Steffen Mccarty MD [address] [place], [place] [phone] J90 (ICD-10-CM) - Pleural effusionRheumatologyComment on above:J90 (ICD-10-CM) - Pleural effusionStart: 03-30-2024 End: 17-77-2667Aqluedh encounter dbkkgqocr75/14/2024 9:30 AM EDT Office Visit Rheumatology [address] [address] Steffen Mccarty MD [address] [place], [place] [phone] J90 (ICD-10-CM) - Pleural effusionRheumatologyComment on above:J90 (ICD-10-CM) - Pleural effusionStart: 03-26-2024 End: 05-19-5353Wohcbpu encounter solzyltzi16/10/2024 2:30 PM EDT Appointment Cardiovascular Testing [address] [place] [address] Pericarditis, unspecified chronicity, unspecified type [I31.9]Cardiovascular TestingComment on above:Pericarditis, unspecified chronicity, unspecified type [I31.9]Start: 03-17-2024 End: 92-89-2782Bhxytwh encounter nfkezluzm73/01/2024 4:30 PM EDT Appointment Radiology [address] [place] [address] Interstitial pulmonary disease (HCC) [J84.9]RadiologyComment on above:Interstitial pulmonary disease (HCC) [J84.9]Start: 03-17-2024 End: 98-02-6403Uanxcdu encounter procedureThoracic SurgeryComment on above: Pleural effusionStart: 03-17-2024 End: 33-35-6881xlcdbpmnoj30/01/2024 1:15 PM EDT Procedure Pulmonary Lab [address] [place], [place] [phone] Pleural effusion [J90]; Interstitial pulmonary disease (HCC) [J84.9]Pulmonary LabComment on above: Pleural effusion [J90]; Interstitial pulmonary disease (HCC) [J84.9]Start: 03-17-2024 End: 05-71-5684Pljbsyo encounter dovmkzuhk35/01/2024 10:20 AM EDT Office Visit PULMONOLOGY [facility] [address] [place] [address] Louise Cesar MD [address] [place] [address] NEW Chronic cough pt + CXR + PFT'[facility] Comment on above:NEW Chronic cough pt + CXR + PFT'SStart: 03-17-2024 End: 12-75-2260Lazhbuf encounter kuzbiiznn00/01/2024 9:15 AM EDT Appointment XRAY / RADIOLOGY [facility] [address] [place] [address] Chronic bronchitis, unspecified chronic bronchitis type (HCC) [[id number] / RADIOLOGY [facility]OSPITALComment on above:Chronic bronchitis, unspecified chronic bronchitis type (HCC) [A95Bjjxu: 03-17-2024 End: 95-90-9038wiboqmpwgjQCJCTICYYGQ LAB [facility]ITALComment on above:Chronic cough [R05.3]Pleural effusion [J90]; Interstitial pulmonary disease (HCC) [J84.9]Start: 98-95-8878Llzzl-19 Vaccine ()Covid-19 Vaccine ()[facility] Hospitaltart: 46-38-1650Gnqgx-19 Vaccine ()Covid-19 Vaccine ()[facility] Hospitaltart: 02-16-2024 Covid-19 Vaccine ()Covid-19 Vaccine () [facility]: 63-87-5249Tflijacfy vaccinationMcCullough-Hyde Memorial Hospitaltart: 02-12-2024 End: 29-51-8708Ogdwv metabolic 2000 panel - Serum or PlasmaBASIC METABOLIC PANEL Lab Routine Primary hypertension Expected: 02/12/2024, Expires: 05/13/2024 [facility] CenterComment on above:Expected: 02/12/2024, Expires: 05/13/2024Start: 02-12-2024 End: 68-52-2145CUO panel - Blood by Automated countCOMPLETE BLOOD COUNT Lab Routine Primary hypertension Anemia, unspecified type Expected: 02/12/2024, Expires: 05/13/2024P JOSE ANTONIO HOPPER MD [facility] Work Phone: comment on above:Expected: 02/12/2024, Expires: 05/13/2024Start: 02-12-2024 End: 12-08-0762Dssvlqhue [Mass/volume] in Serum or PlasmaMAGNESIUM Lab Routine Primary hypertension Hypomagnesemia Expected: 02/12/2024, Expires: 05/13/2024 [facility] ClinicComment on above:Expected: 02/12/2024, Expires: 05/13/2024Start: 02-12-2024 End: 90-44-3084Csshxnd encounter kamqcsyjf13/28/2024 1:30 PM ED[place] [address] [facility] [address] [place] [address] [place] [address] [facility] [address] [place] [address] [facility]Yehuda Dial MDComment on above:[facility] hospitalStart: 02-12-2024 End: 32-54-8147Afpkanx encounter xwhbfjyxt51/28/2024 10:45 AM ED[place] [address] [place] [address] [place] [address] [place] [address] Follow-upJose Antonio Hopper MDComment on above:Follow-upStart: 02-04-2024 End: 20-45-8119Jcsrpaa encounter procedureRADIO [facility] MCComment on above:Recurrent 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 [J90]Start: 01-15-2024 End: 29-55-9261Qkaxf metabolic 2000 panel - Serum or PlasmaBASIC METABOLIC PANEL Lab Routine Recurrent 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 Expected: 01/15/2024, Expires: 04/15/2024P JOSE ANTONIO HOPPER MD [facility] Work Phone: comment on above:Expected: 01/15/2024, Expires: 04/15/2024Start: 01-15-2024 End: 41-45-3396Kkapooy encounter njzimkvho84/31/2024 1:00 PM EDT [place] [address] [place] [address] [place] [address] [place] [address] New PatientJose Antonio Hopper MDComment on above:New Patient Start: 01-06-2024 End: 36-42-0913Ommwuzh encounter procedureRADIO GENERAL HILLCREST HOSPComment on above:Recurrent 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 [J90]Start: 12-20-2023 End: 24-55-3262Pcixncg encounter procedureRADIO GENERAL HILLCREST HOSPComment on above:Pleural effusionStart: 12-13-2023 End: 07-68-2681Aaqpbxq encounter procedureRADIO GENERAL HILLCREST HOSPComment on above:Pleural effusion [J90]Pleural effusionStart: 12-04-2023 End: 07-85-3715Mzmouxz encounter procedureRADIO GENERAL HILLCREST HOSPComment on above:Discharge follow upStart: 12-03-2023 End: 45-86-4027Exsfjln encounter procedureRADIO GENERAL [facility]ILLCREST MOBComment on above:Pleural effusionStart: 12-01-2023 End: 07-04-1048VE Chest PA and LateralXR CHEST 2V FRONTAL/LAT Radiology Routine Surgery follow-up Expected: 12/01/2023, Expires: 12/23/2024[facility] Work Phone: Comment on above:Expected: 12/01/2023, Expires: 12/23/2024Start: 11-20-2023 End: 98-11-1889Fekftolqk to same day surgery dtqgoi5311/20/2023 5:43 PM EDT - 11/20/2023 9:17 PM EDT Surgery Admitting [address] [place] [address] Ronaldo Flood MD, PhD [address] [facility] [address] [place] [address] THORACOSCOPY WITH PLEURAL ABRASION AdmittingComment on above:THORACOSCOPY WITH PLEURAL ABRASIONStart: 11-20-2023 Subsequent hospital visit by mbrglxahh10/05/2024 5:43 PM EDT Hospital Encounter Admitting [address] [place] [address] Ronaldo Flood MD, PhD [address] [address] Pleural effusion [J90]AdmittingComment on above:Pleural effusion [J90]Start: 11-20-2023 End: 19-40-3607Naxuepzdenyl w/dx bx of lung infiltrate unilatrlTHORACOSCOPY W/ DIAGNOSTIC BIOPSY(IES) OF LUNG NODULE(S) OR MASS(ES) UNILATERAL Pleural effusion Encounter for other preprocedural examination 11/20/2023 5:43 [address] [facility] CT & VASStart: 11-20-2023 End: 58-37-0610Jmkznfjpbmui w/pleurodesisTHORACOSCOPY WITH PLEURAL ABRASION Pleural effusion Encounter for other preprocedural examination 11/20/2023 5:43 [address] [facility] CT & VASStart: 11-20-2023 End: 64-37-9847Uvqmxalan to same day surgery rslslw6911/20/2023 11:30 AM EDT - 11/20/2023 3:04 PM EDT Surgery Admitting [address] [place], [place] Ronaldo Flood MD, PhD [address] [address] THORACOSCOPY WITH PLEURAL ABRASION AdmittingComment on above:THORACOSCOPY WITH PLEURAL ABRASIONStart: 11-20-2023 Subsequent hospital visit by nqrkjnupy16/05/2024 11:30 AM EDT Hospital Encounter Admitting [address] [place] [address] Ronaldo Flood MD, PhD [address] [facility]ERS[facility] [address] [address] Pleural effusion [J90]AdmittingComment on above:Pleural effusion [J90]Start: 11-20-2023 End: 71-60-6459Gkxvbhflsbep w/dx bx of lung infiltrate unilatrlTHORACOSCOPY W/ DIAGNOSTIC BIOPSY(IES) OF LUNG NODULE(S) OR MASS(ES) UNILATERAL Pleural effusion Encounter for other preprocedural examination 11/20/2023 11:[address] [facility] CT & VASStart: 11-20-2023 End: 43-20-8936Feexdwtnycva w/pleurodesisTHORACOSCOPY WITH PLEURAL ABRASION Pleural effusion Encounter for other preprocedural examination 11/20/2023 11:[address] [facility] CT & VASStart: 11-12-2023 End: 52-98-7000dfyelxgvkjFvkgfqrmx MedicineComment on above:Pleural effusion [J90]Start: 11-12-2023 End: 05-80-4922Bkssywo encounter procedureRadiologyComment on above:PRE-OP Pleural effusion [J90]-or- SM 11/20/23AnesthesiaStart: 11-12-2023 End: 34-17-6650tuopbedevkHlxaoyrygyNauaruj on above:PRE-OPStart: 10-28-2023 End: 45-88-6266mJDH in Platelet poor plasma by Coagulation assayACTIVATED PARTIAL THROMBOPLASTIN TIME Lab STAT Pleural effusion Encounter for other preprocedural examination Expected: 10/28/2023, Expires: 10/23/2024[facility] ClinicComment on above:Expected: 10/28/2023, Expires: 10/23/2024Start: 10-28-2023 End: 77-50-4125UVN W Auto Differential panel - BloodCOMPLETE BLOOD COUNT AND DIFFERENTIAL Lab STAT Pleural effusion Encounter for other preprocedural ex amination Expected: 10/28/2023, Expires: 10/23/2024[facility] ClinicComment on above:Expected: 10/28/2023, Expires: 10/23/2024Start: 10-28-2023 End: 22-60-1216Hrbybimxbdyms metabolic 2000 panel - Serum or PlasmaCOMPREHENSIVE METABOLIC PANEL Lab STAT Pleural effusion Encounter for other preprocedural examination Expected: 10/28/2023, Expires: 10/23/2024[facility] ClinicComment on above:Expected: 10/28/2023, Expires: 10/23/2024Start: 10-28-2023 End: 64-28-2645EUYXWPF BLOOD TYPECONFIR BLOOD TYPE Blood Bank STAT Pleural effusion Encounter for other preprocedural examination Expected: 10/28/2023, Expires: 10/23/2024[facility] HospitalComment on above:Expected: 10/28/2023, Expires: 10/23/2024Start: 10-28-2023 End: 92-55-8127KES COMPLETEECG COMPLETE ECG STAT Pleural effusion Encounter for other preprocedural examination Expected: 10/28/2023, Expires: 10/23/2024 [facility] CenterComment on above:Expected: 10/28/2023, Expires: 10/23/2024Start: 10-28-2023 End: 46-39-3495IDUQ DIFFUSION CAPACITY (DLCO)LUNG DIFFUSION CAPACITY (DLCO) PFT STAT Pleural effusion Encounter for other preprocedural examination Expected: 10/28/2023, Expires: 11/22/2024[facility] centerand ClinicComment on above:Expected: 10/28/2023, Expires: 11/22/2024Start: 10-28-2023 End: 88-25-1127FE Heart Perfusion W multiple states of exerciseNM CARDIAC PERF STRESS/EXERCISE Radiology STAT Pleural effusion Encounter for other preprocedural examination Expected: 10/28/2023, Expires: [facility]/2024[facility]Expected: 10/28/2023, Expires: 11/22/2024Start: 10-28-2023 End: [id number] panel - Platelet poor plasma by Coagulation assayPROTHROMBIN TIME Lab STAT Pleural effusion Encounter for other preprocedural examination Expected: 10/28/2023, Expires: 10/23/2024[facility]: Expected: 10/28/2023, Expires: 10/23/2024Start: 10-28-2023 End: [id number] WITH DILATOR IF OBSTRUCTEDSPIROMETRY WITH DILATOR IF OBSTRUCTED PFT STAT Pleural effusion Encounter for other preprocedural ex amination Expected: 10/28/2023, Expires: 11/22/2024[facility] Work Phone: Comment on above:Expected: 10/28/2023, Expires: 11/22/2024Start: 10-28-2023 End: [id number] AUREUS & MRSA SCREEN, PCR, NASALSTAPHYLOCOCCUS AUREUS & MRSA SCREEN, PCR, NASAL Lab STAT Pleural effusion Encounter for other preprocedural examination Expected: 10/28/2023, Ex[facility]: [facility]Expected: 10/28/2023, Expires: 01/27/2024Start: 10-28-2023 End: [id number] AND SCREEN,30 DAYTYPE AND SCREEN,30 DAY Blood Bank STAT Pleural effusion Encounter for other preprocedural examination Expected: 10/28/2023, Expires: 10/23/2024[facility] on above:Expected: 10/28/2023, Expires: 10/23/2024Start: 10-28-2023 End: 64-81-3628UPDHNIZJCV, DIPSTICK ONLYURINALYSIS, DIPSTICK ONLY Lab STAT Pleural effusion Encounter for other preprocedural examination Expected: 10/28/2023, Expires: 10/23/2024[facility] ClinicComment on above:Expected: 10/28/2023, Expires: 10/23/2024Start: 10-28-2023 End: 83-01-1116GH Chest PA and LateralXR CHEST 2V FRONTAL/LAT Radiology STAT Pleural effusion Encounter for other preprocedural examination Expected: 10/28/2023, Expires: 11/22/2024[facility] ClinicComment on above:Expected: 10/28/2023, Expires: 11/22/2024Start: 10-24-2023 End: 53-90-7022Hfjhdvf encounter xfzkeychv06/09/2024 12:00 PM EDT Office Visit Thor[facility] Clinic [address] [place] [address] Ronaldo Flood MD, PhD [address] [facility] [address] [place] [address] pleural effusionThoracic ClinicComment on above: pleural effusionStart: 92-13-4660Rjve Fast CultureAcid Fast CultureAvita Health System Bucyrus Hospitaltart: 25-80-8617Mtva Fast CultureAcid Fast Culture [facility] Hospitaltart: 34-94-1168Iqygyak Directive Discussion Advance Directive DiscussionMcCullough-Hyde Memorial Hospitaltart: 20-15-4840Mokbgsozpr Health ScreeningBehavioral Health ScreeningMcCullough-Hyde Memorial Hospitaltart: 79-67-7183BTUMB-19 Vaccine ()COVID-19 Vaccine ()[facility] Start: 18-15-4661Kowkw-19 Vaccine ()Covid-19 Vaccine ()[facility] Hospitaltart: 32-18-5561Ujvkohaay vaccinationOhVan Wert County Hospital Start: 02-11-2023 End: 04-93-6516Milnrhj encounter unvkhmqwc43/28/2023 1:15 PM EDT Office Visit [facility] [address], [place] [phone] Margie Edouard, DO [address] [place] [address] [facility]geonsStart: 01-14-2023 End: 19-34-0053Rxnfqho encounter pbqqxewrj16/31/2023 1:15 PM EDT Office Visit [facility] [address], [place] [phone] Margie Edouard, DO [address] [place] [address] [facility] SurgeonsStart: 11-19-2022 End: 38-58-6951Venggzh encounter boihuypbq50/05/2023 1:30 PM EDT Office Visit [facility] [address], [place] [phone] Margie Edouard, DO [address] [place] [address] [facility]geonsStart: 10-08-2022 End: 81-89-7626Bksrqml encounter /24/2023 Office Visit Orthopedic Surgery Margie Edouard, DO [address] [place] [address] [facility]geonsStart: 02-15-2022 Influenza vaccinationSequential Influenza Vaccine (#1)[facility]Start: 56-70-1881MGZPG-19 Vaccine (4 - Booster for Pfizer series)COVID-19 Vaccine (4 - Booster for Pfizer series)[facility]: 15-70-1908UZISS-19 Vaccine (4 - Pfizer series)COVID-19 Vaccine (4 - Pfizer series)[facility]: 07-05-2021 COVID-19 Vaccine (5 - Booster)COVID-19 Vaccine (5 - Booster)[facility]: 92-60-1012Kzkvpgcti vaccinationSequential Influenza Vaccine (#1)[facility]Start: 07-01-2020 End: 87-81-8080Jwbaem Visit07/01/2020 Office Visit Orthopedic Surgery Nena Huff, DO [address] [place] [address] [phone] [facility]geonsStart: 65-85-0468Tnyhztlhi vaccination given Sequential Influenza Vaccine (#1)[facility]Start: 40-68-5764Qnepethuoe40/14/2020 Office Visit Orthopedic Surgery Karthik Calloway MD [address] [place] [address] [phone] [facility] Start: 07-82-1103Pfhochfko vaccination givenSEQUENTIAL INFLUENZA VACCINE (#1) [facility]: 80-43-6915Irqsaokavketmi of herpes zoster vaccineZoster Vaccines (2 of 2)[facility]Start: 72-93-3198Yzhniwzj Vaccine (2 of 2)Shingrix Vaccine (2 of 2)[facility] Hospitaltart: 79-34-5069Vtwtw microalbumin profile DTaP,Tdap,Td Vaccine (1 - Tdap)[facility] Hospitaltart: 93-84-8578Kfbuamgovz 07/30/2017 Office Visit Orthopedic Surgery Karthik Calloway MD [address] [place] [address] [address] [place] [address] [phone] [facility] SurgeonsStart: 64-73-8182Qctsinrog vaccinationSEQUENTIAL INFLUENZA VACCINE (#1)[facility] Work Phone: Start: 57-11-8141RIHNBOSZCD INFLUENZA VACCINE (#1) SEQUENTIAL INFLUENZA VACCINE (#1)[facility] Work Phone: Start: 00-02-4346Aeuz risk assessmentFalls Risk AssessmentOhioHealthStart: 83-94-8750Mteuaiwfttnv vaccinationPNEUMOCOCCAL VACCINE AGE 65+ (1 of 2 - PCV13)[facility] Work Phone: Start: 00-61-3905UHXWJQJHWPCY VACCINE AGE 65+ (1 of 2 - PCV13)PNEUMOCOCCAL VACCINE AGE 65+ (1 of 2 - PCV13)[facility] Work Phone: Start: 52-35-4237Hpgcgbhnt B Vaccine (1 of 3 - Risk 3- dose series)Hepatitis B Vaccine (1 of 3 - Risk 3-dose series)[facility] Start: 89-54-5164JDT Vaccine (1 - 1-dose 60+ series)RSV Vaccine (1 - 1-dose 60+ series)[facility] Hospitaltart: 37-38-9983NTU Vaccine (1 - Risk 60-74 years 1-dose series)RSV Vaccine (1 - Risk 60-74 years 1-dose series)[facility] Hospitaltart: 29-62-2852Xvisbu vacc, scZOSTER VACCINEOhVan Wert County Hospital Work Phone: Start: 88-21-7544Jeaivzhjv for malignant neoplasm of colonOhioHealthStart: 42-70-6454Qhhyneaq ScreeningDiabetes ScreeningMcCullough-Hyde Memorial Hospitaltart: 79-61-4520Kgymywhuw for malignant neoplasm of colonAdena Pike Medical Center Start: 62-94-7729Imvac panelLipid ScreeningMcCullough-Hyde Memorial Hospitaltart: 1970 Hepatitis A Vaccine (1 of 2 - Risk 2-dose series)Hepatitis A Vaccine (1 of 2 - Risk 2-dose series)[facility] Hospitaltart: 90-18-1604Crwht microalbumin profile DTaP,Tdap,Td Vaccine (1 - Tdap)[facility] Hospitaltart: 40-12-3224Kuxbmk PCP Team Chronic Disease VisitAnnual PCP Team Chronic Disease VisitMcCullough-Hyde Memorial Hospitaltart: 16-35-9665Iffvxax ScreeningAnxiety ScreeningMcCullough-Hyde Memorial Hospitaltart: 65-44-3052YN Controlled (<130/80)BP Controlled (<130/80)[facility] Hospitaltart: 1969 Depression ScreeningDepression ScreeningMcCullough-Hyde Memorial Hospitaltart: 1969 Hepatitis C antibody, confirmatory testHepatitis C ScreeningOhioHealthStart: 53-57-4826Lphgnxozf C screeningHepatitis C ScreeningOhioHealthStart: 1967 COVID-19 Vaccine (1 of 2)COVID-19 Vaccine (1 of 2)[facility] HospitalStart: 1963 Adolescent depression screening assessmentDepression Screening (PHQ9)[facility] Start: 35-17-7307Muoytstzmh screening using PHQ-9 (Patient Health Questionnaire 9) scoreOhioHealthStart: 82-99-3032RGCPG-19 Vaccine (1)COVID-19 Vaccine (1) [facility]Start: 07-98-3363Djynett and physical examination, annual for [facility] VisitOhioHealthStart: 09-27-1954Medicare Wellness Visit Medicare Wellness VisitOhioHealthStart: 66-02-4734LzqehqewtujLRZTFHSAUPJ [facility] Work Phone: Start: 11-31-4691Wbfk risk assessmentFalls Risk AssessmentOhioHealthStart: 29-11-2365Siihqawfu C antibody, confirmatory test HEPATITIS C SCREENINGOhioHealthStart: 36-66-1084Yzpvpyfp specific antigen measurementPSA LevelOhioHealthStart: 13-88-5469Ipkmangip for malignant neoplasm of colonOhioHealthStart: 68-41-3980YNXKYEZ EVERY 10 YRTETANUS EVERY 10 YR [facility] Work Phone: Start: 1950 End: 41-72-3426CJELASRPU C SCREENINGHEPATITIS C SCREENINGProv[facility] Hospital Work Phone: Start: 73-94-0155Pqfyexgkq colonoscopyCOLONOSCOPY [facility] Work Phone: Start: 1950 End: 83-43-5836Flqbfjh vaccinationOhioHealthAlbumin [Mass/volume] in Body fluid ALBUMIN, BODY FLUID Lab Routine Pleural effusion Ordered: 07/20/2024[facility] ClinicComment on above:Ordered: 07/20/2024lbumin [Mass/volume] in Body fluid ALBUMIN, BODY FLUID Lab Routine Pleural effusion Ordered: 07/20/2024[facility] ClinicComment on above:Ordered: 07/20/2024ODY FLUID CELL COUNTBODY FLUID CELL COUNT Lab Routine Pleural effusion Ordered: 07/20/2024[facility] ClinicComment on above:Ordered: 07/20/2024omprehensive metabolic 2000 panel - Serum or Plasma [facility]CT [facility] End: 86-81-4007MA Chest W contrast IVCT CHEST W IVCON Radiology Routine Interstitial pulmonary disease (HCC) 1 Occurrences starting 03/17/2024 until 04/16/2025[facility] Work Phone: Comment on above:1 Occurrences starting 03/17/2024 until 04/16/2025T Chest W contrast IVCT CHEST W IVCON Radiology Routine Interstitial pulmonary disease (HCC) 03/17/2024 4:02 PM EDTCleveland Clinic End: 92-27-6640CG Chest WO contrastCT CHEST WO IVCON Radiology Routine Pleural effusion Lung nodule 1 Occurrences starting 05/18/2024 until 06/17/2025[facility] ClinicComment on above:1 Occurrences starting 05/18/2024 until 06/17/2025 End: 89-87-0516YT Small bowel W contrast PO and W contrast IVCT ENTEROGRAPHY W IVCON Radiology Routine Other ascites Generalized abdominal pain 1 Occurrences starting 10/21/2024 until 11/20/2025[facility] ClinicComment on above:1 Occurrences starting 10/21/2024 until 11/20/2025 End: 86-97-0465CvydhralhkueflljSWQR Cardiology Routine Pericarditis, unspecified chronicity, unspecified type 1 Occurrences starting 03/17/2024 until 03/17/2025 [facility] CenterComment [facility]:1 Occurrences starting 03/17/2024 until 03/17/2025 End: 93-49-3858ZLF DIAGNOSTICEGD DIAGNOSTIC Endoscopy Routine Diarrhea, unspecified type 1 Occurrences starting 04/20/2024 until04/20/2025[facility] Work Phone: Comment on above:1 Occurrences starting 04/20/2024 until 04/20/2025 End: 10-96-6144YMH DIAGNOSTICEGD DIAGNOSTIC Endoscopy Routine Esophageal dysphagia 1 Occurrences starting 08/24/2024 until 08/24/2025[facility] Comment on above:1 Occurrences starting 08/24/2024 until 08/24/2025FAT, FECAL QUALFAT, FECAL QUAL Lab Routine Other ascites Generalized abdominal pain Ordered: [address] [place] [address] Work Phone: Comment on above:Ordered: 10/21/2024 End: 93-32-5720Opufhqtf sigmoidoscopy studyCOLONOSCOPY DIAGNOSTIC Endoscopy Routine Diarrhea, unspecified type 1 Occurrences starting 04/20/2024 until 04/20/2025[facility] HospitalComment on above:1 Occurrences starting 04/20/2024 until 04/20/2025FLOW CYTOMETRY FOR LEUKEMIA/LYMPHOMA (FCLL) PERFORMABLEFLOW CYTOMETRY FOR LEUKEMIA/LYMPHOMA (FCLL) PERFORMABLE Lab Routine Pleural effusion 05/18/2024 12:52 PM [facility]TOMET[facility] FOR LEUKEMIA/LYMPHOMA (FCLL) PERFORMABLEFLOW CYTOMETRY FOR LEUKEMIA/LYMPHOMA (FCLL) PERFORMABLE Lab Routine Pleural effusion Pleuritis Lymphocytic colitis Pericardial effusion (noninflammatory) Interstitial pulmonary disease (HCC) Ordered:06/22/2024 [facility] CenterComment on above:Ordered: 06/22/2024Lactate dehydrogenase [Enzymatic activity/volume] in Body fluidLACTATE DEHYDROGENASE, BODY FLUID Lab Routine Pleural effusion Ordered: 07/20/2024[facility] Work Phone: Comment on above:Ordered: 07/20/2024Lactate dehydrogenase [Enzymatic activity/volume] in Body fluidLACTATE DEHYDROGENASE, BODY FLUID Lab Routine Pleural effusion Ordered: [address] [place] [address] Comment on above:Ordered: 07/20/2024 End: 04-61-2612Bevbe stiffness by US.transient elastographyUS ELASTOGRAPHY LIVER Radiology Routine Hepatomegaly 1 Occurrences starting 11/13/2024 until 026[facility] CenterComment on above:1 Occurrences starting 11/13/2024 until 12/13/2025Liver stiffness by US.transient elastographyUS ELASTOGRAPHY LIVER Radiology Routine Hepatomegaly 11/23/2024 3:05 PM EDTCleveland ClinicMANUAL DIFFERENTIAL, BODY FLUIDMANUAL DIFFERENTIAL, BODY FLUID Lab Routine Pleural effusion 05/18/2024 12:52 PM [facility] End: 73-19-2120GIINUT OXIDE, EXHALEDNITRIC OXIDE, EXHALED PFT Routine Chronic cough Pleural effusion 1 Occurrences starting 01/06/2024 until 02/04/2025 [facility] Work Phone: Comment on above:1 Occurrences starting 01/06/2024 until 02/04/2025pH of Body fluidPH BODY FLUID Lab Routine Pleural effusion Ordered: 07/20/2024[facility] ClinicComment on above:Ordered: 07/20/2024PH PLEURAL FLUID (FOR USE OUTSIDE OF [facility])PH PLEURAL FLUID (FOR USE OUTSIDE OF [facility]) Lab Routine Pleural effusion Ordered: 07/20/2024[facility] ClinicComment on above:Ordered: 07/20/2024Protein [Mass/volume] in Body fluidPROTEIN, BODY FLUID Lab Routine Pleural effusion Ordered: 07/20/2024[facility] ClinicComment on above:Ordered: 07/20/2024Protein [Mass/volume] in Body fluidPROTEIN, BODY FLUID Lab Routine Pleural effusion Ordered: 07/20/2024[facility] ClinicComment on above:Ordered: 07/20/2024Protein/Creatinine [Mass Ratio] in UrinePROTEIN / CREATININE RATIO Lab Routine Elevated serum creatinine 10/15/2024 10:09 AM EDT [facility] Work Phone: RF Guidance for transjugular biopsy of Liver-- W contrast IVIR TRANSJUGULAR LIVER BX W/PRESS Radiology Routine Elevated alkaline phosphatase level Ordered: [address] [place] [address] Work Phone: comment on above:Ordered: 12/22/2024 End: 52-54-2253LXX MINUTE WALKSIX MINUTE WALK PFT Routine Pleural effusion Encounter for other preprocedural examination 1 Occurrences starting 10/28/2023 until 06/12/2025[facility] ClinicComment on above:1 Occurrences starting 10/28/2023 until 11/26/2024 End: 04-23-4036EIILNBKUJH WITH DILATOR IF OBSTRUCTEDSPIROMETRY WITH DILATOR IF OBSTRUCTED PFT Routine Chronic cough Pleural effusion 1 Occurrences starting 01/06/[address] [place], [place] [address]Comment on above:1 Occurrences starting 01/06/2024 until 02/04/2025SPIROMETRY WITH DILATOR IF OBSTRUCTED SPIROMETRY WITH DILATOR IF OBSTRUCTED PFT Routine Chronic cough Pleural effusion 03/17/2024 8:07 [facility]ED[facility] Work Phone: comment on above:Release Upon Ordering for 1 Occurrences starting 04/28/2024, 1 completedTissue Pathology biopsy report [facility] Work Phone: Comment on above:Release Upon Ordering for 1 Occurrences starting 09/25/2024, 1 completedUA DIP, URINE (POC)UA DIP, URINE (POC) Lab Routine Screening for genitourinary condition 1 Occurrences starting [address] [place] [address] Work Phone: comment on above:1 Occurrences starting 10/15/2024 End: 91-25-9915RV Abdomen RUQUS ABD RIGHT UPPER QUADRANT Radiology Routine Elevated alkaline phosphatase level 1 Occurrences starting 10/15/[address] [place] [address] Work Phone: Comment on above:1 Occurrences starting 10/15/2024 until 11/14/2025US Abdomen RUQUS ABD RIGHT UPPER QUADRANT Radiology Routine Elevated alkaline phosphatase level 10/23/2024 2:18 PM [facility] Work Phone: End: 59-79-1476FX Abdomen RUQUS ABD RIGHT UPPER QUADRANT Radiology Routine Hepatomegaly 1 Occurrences starting 11/13/[address] [place] [address] on above:1 Occurrences starting 11/13/2024 until 12/13/2025US Abdomen RUQUS ABD RIGHT UPPER QUADRANT Radiology Routine Hepatomegaly 11/23/2024 3:05 PM [facility] Work Phone: US Chest limitedUS CHEST (POC) H23 USE ONLY Imaging Diagnostic Routine Pleural effusion Pleuritis Lymphocytic colitis Pericardial effusion (noninflammatory) Interstitial pulmonary disease (HCC) Ordered: [address] [place] [address] Work Phone: Comment on above:Ordered: 06/22/2024[facility]Ber[facility] End: 41-77-4188CV Lower extremity artery - bilateralPVR LEG [facility] Vascular Lab Routine Extremity cyanosis 1 Occurrences starting 11/20/2024 until11/20/2025 [facility] CenterComment on above:1 Occurrences starting 11/20/2024 until 11/20/2025 End: 59-21-5612BZ Lower extremity veins - bilateralUS LEG VEIN DVT [facility] Vascular Lab Routine Extremity cyanosis 1 Occurrences starting 11/20/2024 until 6CMartin Memorial HospitalComment on above:1 Occurrences starting 11/20/2024 until 11/20/2025 End: 18-25-9113UY Vein - bilateralUS VENOUS INCOMPETENCY [facility] Vascular Lab Routine Extremity cyanosis 1 Occurrences starting 11/20/[address] [place] [address] Work Phone: Comment on above:1 Occurrences starting 11/20/2024 until 11/20/2025 End: 10-47-5049TP.doppler Abdominal vesselsUS ABD LIVER VASCULAR Radiology Routine Other ascites 1 Occurrences starting 02/17/2025 until 03/19/2026 [facility] Work Phone: comment on above:1 Occurrences starting 02/17/2025 until 03/19/2026 End: 06-63-1914MD.doppler Unspecified body regionUS DOPPLER COMPLETE Radiology Routine Other ascites 1 Occurrences starting 02/17/2025 until 03/19/2026 [facility] CenterComment [facility] above:1 Occurrences starting 02/17/2025 until 03/19/2026 End: 84-59-3522QF Chest PA and LateralXR CHEST 2V FRONTAL/LAT Radiology Routine Follow-up exam 1 Occurrences starting 11/29/[address] [place] [address] Work Phone: Comment on above:1 Occurrences starting 11/29/2023 until 12/28/2024XR Chest PA and LateralXR CHEST 2V FRONTAL/LAT Radiology Routine Surgery follow-up 11/29/2023 2:19 PM [facility] Work Phone: XR Chest PA and LateralXR CHEST 2V FRONTAL/LAT Radiology Routine Follow-up exam 12/03/2023 12:25 PM [facility] Work Phone: XR Chest PA and LateralXR CHEST 2V FRONTAL/LAT Radiology Routine Pleural effusion 12/13/2023 1:18 PM [facility] Work Phone: XR Chest PA and LateralXR CHEST 2V FRONTAL/LAT Radiology Routine Pleural effusion 12/20/2023 1:13 PM [facility] Work Phone: End: 32-04-8276UY Chest PA and LateralXR CHEST 2V FRONTAL/LAT Radiology Routine Pleural effusion 1 Occurrences starting 01/06/[address] [place] [address] Work Phone: Comment on above:1 Occurrences starting 01/06/2024 until 02/04/2025XR Chest PA and LateralXR CHEST 2V FRONTAL/LAT Radiology Routine Recurrent 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 01/06/2024 1:09 PM [facility] Work Phone: End: 86-10-6969EK Chest PA and LateralXR CHEST 2V FRONTAL/LAT Radiology Routine Pleural effusion 1 Occurrences starting 02/04/[address] [place] [address] Work Phone: Comment on above:1 Occurrences starting 02/04/2024 until 03/05/2025XR Chest PA and LateralXR CHEST 2V FRONTAL/LAT Radiology Routine Chronic bronchitis, unspecified chronic bronchitis type (HCC) 03/17/2024 8:41 AM [facility] Work Phone: End: 17-25-3653OY Chest PA and LateralXR CHEST 2V FRONTAL/LAT Radiology Routine Pleural effusion 1 Occur[facility] 10/28/2024 [facility] Work Phone: Comment on above:1 Occurrences starting 10/28/2024 until 11/26/2025 Immunizations Immunization DateImmunizationNotesCare LqbynioiLedjkund61-80-4621wxulocboh, high dose seasonal, preservative-freeJose Antonio Hopper MD Work Phone: [place] Uqbbna72-50-7864bbeddkltq, seasonal, injectableJose Antonio Hopper MD Work Phone: [place] Mnnhdn93-41-8793kgoszvutjck syncytial virus (RSV) vaccine, adjuvanted (AREXVY)Jose Antonio Hopper MD Work Phone: [place] Bbvzpx43-01-2158bufldnn toxoid, reduced diphtheria toxoid, and acellular pertussis vaccine, adsorbedJose Antonio Hopper MD Work Phone: [place] Kmyiud79-52-7551nidpshyrf virus vaccine, unspecified formulationJose Antonio Hopper MD Work Phone: [place] Mfkilx39-49-6550PJFDJ-30 mRNA, Comirnaty (Pfizer)[facility]03-30-2021COVID-19 original vaccine, age 12+ yr, monovalent (PFIZER-BIONTECH - PURPLE TOP)Jose Antonio Hopper MD Work Phone: [place] Gprvfe64-40-5900QINUX-55 mRNA Comirnatnorris (Pfizer)DO [facility] Work Phone: [facility]03-08-2021COVID-19 original vaccine, age 12+ yr, monovalent (PFIZER-BIONTECH - PURPLE TOP) Jose Antonio Hopper MD Work Phone: [place] Ngoohx02-71-7562NBGAC-94 mRNA, Comirnaty (Pfizer)DO [facility] Work Phone: [facility]11-23-2020influenza virus vaccine, split virus (incl. purified surface antigen)Yuli Mariscal Other [facility] Sos[facility]ise Other 031759-63-4333uqjntodkc virus vaccine, unspecified formulationDO Sintia Clemente Work Phone: [facility]11-23-2020Seasonal trivalent influenza vaccine, adjuvanted, preservative freeJose Antonio Hopper MD Work Phone: [place] Jqfsfm80-15-9800piincgh and diphtheria toxoids, adsorbed, preservative free, for adult use (5 Lf of tetanus toxoid and 2 Lf of diphtheria toxoid)Yuli Mariscal Other [facility]03-16-2019zoster vaccine recombinantVjuan francisco Hopper MD Work Phone: [place] Rerafq65-86-5073vrjupgp and diphtheria toxoids, adsorbed, preservative free, for adult use (5 Lf of tetanus toxoid and 2 Lf of diphtheria toxoid)Yuli Mariscal Other [facility]08-20-2018 pneumococcal polysaccharide vaccine, 23 valnayeliBenjelly Mariscal Other [facility]06-12-2017 pneumococcal conjugate vaccine, 13 valTamra Mariscal Other [facility] Payers DatePayer CategoryPayerPolicy [id number]-[id number] (Managed Care)AETNA MEDICARE [id number] 2022MedicaidAETNA MEDICARE ADVANTAGE [id number] 2016MedicareAETNA MANAGED MEDICARE AETNA MEDICARE PLAN (PPO) xxxxxxxx 2016-Presentxxxxxxxx [id number] 2016MedicareAETNA MANAGED MEDICARE AETNA MEDICARE PLAN (PPO) [id number] 2016Medicare [id number] 2016Medicare PPOAETNA MEDICARE PLAN (PPO) Member Subscriber Plan / Payer (Effective 2016-Present) Name: Sav Raymundo Relation to Subscriber: Self Name: Sav Raymundo Payer ID: 1 (NAIC) Type: Not on file Address: [address] [place] [id number] 1960Medicare [id number] 2.16.840.1.030765.3.57[id number] 2.16.840.1.986333.3.57[id number] 2.16.840.1.538242.3.57[id number] 2.16.840.1.200504.3.57[id number] 2.16.840.1.419752.3.57[id number] 2.16.840.1.124649.3.57[id number] 2.16.840.1.398397.3.57[id number] 2.16.840.1.967214.3.57[id number] 2.16.840.1.097977.3.57[id number] 2.16.840.1.087975.3.57[id number] 2.16.840.1.798387.3.57[id number] 2.16.840.1.412357.3.57[id number] 2.16.840.1.225037.3.57[id number] 2.16.840.1.251651.3.57[id number] 2.16.840.1.775788.3.57[id number] 2..840.1.509739.3.57[id number] 2.16.840.1.223943.3.579.2.1259MedicareMEBL4CPC 2.16.840.1.795795.3.249.13Unknown [id number] 2.16.840.1.0[id number] 2.16.840.1.8[id number] 2.16.840.1.457923.3.579.2.531 [id number] 2.16.840.1.072885.3.579.2.531 Social History DateTypeDetailFacilityStart: 07-30-2017 End: 98-02-3362Zycmqyf smoking status NHISNever smokerProvidence Hospital Work Phone: Start: 72-41-4348Tks Assigned At [facility] HospitalNot on file [facility] Work Phone: Start: 07-01-2019 End: 58-57-3108Mgvgncb intakeCurrent drinker of alcohol (finding)[facility] Start: 07-20-2020 End: 06-24-3755Evgdrtf use and exposureNever usedOhioHealthStart: 08-18-2022 End: 03-54-0360Vwtjueln to SARS-CoV-2 (event)Not sureOhioHealthStart: 08-28-2022 End: 69-35-1649Mvuisqz of Social functionAdena Pike Medical Center Work Phone: Start: 08-28-2022 End: 17-61-5193Rumggpa use panelAdena Pike Medical Center Work Phone: Start: 87-41-1256Cab Assigned At [facility] Systemtart: 90-27-9490Xhrsswff Score (1-100), lower number is lower riskNot on [facility] ClinicHas the electric, gas, oil, or water company threatened to shut off services in your home in past 12MoNJoint Township District Memorial Hospital Work Phone: (I/We) worried whether (my/our) food would run out before (I/we) got money to buy more.Never trueMcCullough-Hyde Memorial Hospitaltart: 01-15-2024 Alcohol Commentsocially, no drink since 4Cst. [facility] ClinicStart: 09-11-2024 SexMale (finding)[facility] Hospitaltart: 48-63-1100Xzspon identityIdentifies as male gender (finding)[facility] Medical Equipment Procedure CodeEquipment CodeEquipment Original TextEquipment IdentifierDates Cement 1 X 40 Palacos Bone Single - [id number]: 34-42-9354Cddq Short Cemented Persona - [id number]: 83-38-1601Sdrt Sz F Tib 5deg Nonpor Lt Persona - [id number] Start: 25-00-9439Dtfjwrx Sz9 Lt Nrw Ps Cmt Ccr Persona - [id number]: 66-84-1227Hydoghn 32mm All Poly Persona - [id number]: 41-28-7056Alezueiyv Surf Ef 6-9 14mm Lt Ps Vivacit-E Persona - [id number]: 07-82-4934Dxyx Short Cemented Persona - [id number]: 02-32-4821Wyvmzgc 32mm All Poly Vivacit-E - [id number]: 15-23-9256Bdaxooatw Surf 14mm 6-9ef Rt Cps Ve Persona - [id number]: 01-13-2465Jnjhwrw Hv With Gentamicin CementStart: 17-50-2599Bkbz Sz F Tib 5deg Nonpor Rt Persona - [id number]: 30-03-5946Xhnqnfl Sz9 Rt Nrw Ps Cmt Ccr Persona - [id number]: 57-27-1684Gbsbiq 1 X 40 Palacos Bone Single - [id number]: 94-51-2964Ofbp Short Cemented Persona - [id number]: 08-23-2014 Stem Sz F Tib 5deg Nonpor Lt Persona - [id number]: 00-34-6498Fyimnqy Sz9 Lt Nrw Ps Cmt Ccr Persona - [id number]: 53-52-6253Enjwstj 32mm All Poly Persona - [id number]: 15-91-7348Hanhzienb Surf Ef 6-9 14mm Lt Ps Vivacit-E Persona - Evo1738Rrkyu: 43-87-4732Mhde Short Cemented Persona - [id number]: 06-25-2016 Patella 32mm All Poly Vivacit-E - [id number]: 02-93-5735Dtercnghs Surf 14mm 6-9ef Rt Cps Ve Persona - [id number]: 71-50-3835Wcxtmyi Hv With Gentamicin CementStart: 17-64-9150Kedo Sz F Tib 5deg Nonpor Rt Persona - [id number]: 16-42-2947Mecqhob Sz9 Rt Nrw Ps Cmt Ccr Persona - [id number]: 06-25-2016 Cement 1 X 40 Palacos Bone Single - [id number]: 26-75-0651Lcwz Short Cemented Persona - Vre4049Wyrih: 31-34-5937Ttnu Sz F Tib 5deg Nonpor Lt Persona - [id number] Start: 79-05-6871Irggybh Sz9 Lt Nrw Ps Cmt Ccr Persona - Elu8569Iclfr: 39-64-9129Adhjznm 32mm All Poly Persona - Tif0832Txozr: 74-66-6084Wldzwiwkq Surf Ef 6-9 14mm Lt Ps Vivacit-E Persona - [id number]: 24-15-3930Pcse Short Cemented Persona - [id number]: 28-62-3706Oodpwkh 32mm All Poly Vivacit-E - [id number]: 57-76-1107Qpdkzacib Surf 14mm 6-9ef Rt Cps Ve Persona - [id number]: 04-42-7176Ojokspg Hv With Gentamicin CementStart: 82-48-4206Phcd Sz F Tib 5deg Nonpor Rt Persona - [id number]: 54-16-3915Gvmnkvw Sz9 Rt Nrw Ps Cmt Ccr Persona - [id number]: 69-56-2530Dtyyga 1 X 40 Palacos Bone Single - [id number]_tpyNxzgn: 27-44-8013Zitc Short Cemented Persona - [id number]_vrm Start: 23-67-5065Isbu Sz F Tib 5deg Nonpor Lt Persona - [id number]_xzfLbfhk: 39-19-4526Rgjcfvl Sz9 Lt Nrw Ps Cmt Ccr Persona - [id number]_oeaGjcgy: 15-43-5816Ujewnwq 32mm All Poly Persona - [id number]_hdoOqoyc: 08-23-2014 Articular Surf Ef 6-9 14mm Lt Ps Vivacit-E Persona - [id number]_fmvPcdgt: 30-52-6352Isms Short Cemented Persona - [id number]_uuiQimws: 06-25-2016 Patella 32mm All Poly Vivacit-E - [id number]_kgfNddmc: 37-89-3886Fpjdzguuj Surf 14mm 6-9ef Rt Cps Ve Persona - [id number]_ihdFqpxn: 94-53-2659Fitiuwt Hv With Gentamicin Bryvzl913306_luiLqjiv: 90-46-3518Sljp Sz F Tib 5deg Nonpor Rt Persona - [id number]_mgdKwrgq: 95-50-9308Zaakkep Sz9 Rt Nrw Ps [facility] Ccr Persona - [id number]_kjiAlibi: 06-25-2016 Goals DatePatient GoalDesired Activity/StatePersonal health goal Functional Status LpcbSksaztappaXiyfveZrsdqljm56-06-4315Fdj you deaf, or do you have serious difficulty hearingNo 12/26/2023 4:30 PM EDT Rojas Cline RN [facility] 24-10-5917Fzk you blind, or do you have serious difficulty seeing, even when wearing glassesNo 12/26/2023 4:30 PM EDT Rojas Cline RN [facility] 17-14-6810Mu you have serious difficulty walking or climbing stairsNo 12/26/2023 4:30 PM EDT Rojas Clien RN [facility]07-11-2024Do you have difficulty dressing or bathingNo 12/26/2023 4:30 PM EDT [facility] AdministrationLxgjdh36-75-9291Pcivgde of a physical, mental, or emotional condition, do you have difficulty doing errands alone such as visiting a physician's office or shoppingNo 12/26/2023 4:30 PM EDT Rojas Cline RN [facility] Mental Status EcjoDjgszpfpvgOqnlswYfnhhcsh34-82-2369Asqainl of a physical, mental, or emotional condition, do you have serious difficulty concentrating, remembering, or making decisionsNo 12/26/2023 4:30 PM EDT Rojas Cline RN [facility] Clinical Notes 08-28-2022 to 03-29-2025 Note Date & HqvlCqmcBkacbrfr88-95-3560 NoteTri[facility]10-[facility]-20[facility] History of Present illness Narrative* Jamel Lubin, DPM - 03/25/2025 11:15 AM EDT Images [...] corrected. Thank you for your understanding. Jamel Lubin DPM documented in this [facility]10-09-2025 Instructions* Patient Instructions* Jamel Lubin DPM - 03/25/2025 11:15 AM EDT As noted documented in this [facility]10-08-2025 NoteTri[facility]10-01-2025 History of Present illness Narrative* Jamel Lubin DPM - 03/17/2025 10:15 AM EDT Images from the original note [...] joint. Interval decrease in edema. Soft tissue envelopeappears well-perfused. TDO deformity. Wound measurements: 03/17/2025: 0.7 [...] corrected. Thank you for your understanding. Jamel Lubin DPM documented in this encounterProgress West HospitalJnxejxqvod39-74-7308 NoteTri[facility]09-26-2025 History of Present illness Narrative* Jamel Lubin DPM - 03/12/2025 8:45 AM EDT Images from the original note [...] significant increase in walking activity earlier this week;with redness and swelling developing the following day; [...] and oriented. Pleasant disposition. Independently ambulatory wearing [employer] slip-on footwear. Accompanied by his spouse, Eden. [...] and warmth of the 2nd digit; extending proximalto the MTP joint and onto the dorsal [...] corrected. Thank you for your understanding. Jamel Lubin DPM documented in this encounterNOMS Bxxmlzaxtq43-58-2254 History of Present illness Narrative* Zabrina Suarez MD - 02/25/2025 10:20 AM EDT [facility] SERVICE DATE: 02/25/2025 [...] 10 mg by mouth once daily. calcium yvw-qnr-D9-Zn-microscopist-kian 250 mg-40 mg- 125 unit-3.75mg tab Take [...] Jose Antonio Hopper MD documented in this encounterAden[facility] NoteTri[facility]09-05-2025 History of Present illness Narrative* Nita Damon, RT(R) - 02/19/2025 1:30 PM EDT Radiology Service Progress Note PATIENT [...] PATIENT PRESENTS WITH AN IMPLANTABLE OR ATTACHED DRY CHAIN PULLER: No RADIOLOGY DEPARTMENT: Ultrasound PERIPHERAL IV DATA: Not applicable SIGNED BY: RT Lolly(R) February 19, 2025 2:26 PM documented in this encounterAdena Pike [facility] Center09-05-2025 NoteTri[facility]08-12-2025 History of Present illness Narrative* Jose Antonio Hopper MD - 01/26/2025 1:30 PM EDT PROGRESS NOTES Patient Name: Sav Raymundo SERVICE DATE: 01/26/2025 SERVICE TIME: 1:39 PM HPI: Mr. Raymundo is a 74 year old male who presents for Follow Up.Pathient gets weak and disoriated while walking.Takes Torsemide [...] 10 mg by mouth once daily. calcium eeq-ngz-A7-Zn-microscopist-kian 250 mg-40 mg- 125 unit-3.75mg tab Take [...] and change instool. GENITOURINARY: Negative for dysuria, +frequency and incontinence [...] (1.83m) Wt 185 lb (83.9kg) SpO2 96% BMI25.08 kg/(m^2). General appearance: Normal, healthy, cooperative, in [...] diaphragmatic excursion. Lungs clear to auscultation. Heart: [place] normal. Precordium quiet. RRR. Normal HS with [...] MG TABLET,EXTENDED RELEASE 24 HR Jose Antonio Isakov, MD SIGNATURE: Jose Antonio Hopper MD DATE: January 26, 2025 TIME: 1:39 PM documented in this encounterAdena Pike [facility] Center08-12-2025 Evaluation note* Diagnosis Metabolic encephalopathy- Primary Stage 3a chronic kidney disease (HCC) Primary hypertension Unspecified essential hypertension Lymphocytic colitis Other and unspecified noninfectious gastroenteritis and colitis Generalized edema Edema Orthostatic hypotension Cramp and spasm Urge incontinence Elevated alkaline phosphatase level Other nonspecific abnormal serum enzyme levels documented in this encounter [facility]07-28-2025 History of Present illness Narrative* Triston Riggs MD - 01/11/2025 9:30 AM EDT Images from the original note were not included. [facility] [place] [facility] CC: Persistent RIGHT pleural effusion Sav Rayumndo is a 74 year old male sent by Dr. STEPHANE Cesar MD and Ronaldo Flood MD, PhD for evaluation of persistent RIGHT pleural effusion. My final recommendations will be communicated to the requesting health care provider by way of the shared medical record for internal providers or lettervia the Phone2Action for external providers. Assessment and Plan 1. [...] 10 mg by mouth once daily. calcium shh-qql-D0-Zn-microscopist-kian 250 mg-40 mg- 125 unit-3.75mg tab Take [...] 0.2 11/12/2024 Abs Neut 7.03 11/12/2024 Abs Screven 0.67 11/12/2024 Abs Eosin <0.03 11/12/2024 Abs [...] 36 % 39 80 (H) 80 (H) Screven%, BF % 6 Macro%, BF 64 - [...] with more than 50% of the total oapq-vp-ilxn time of the visit in counseling / coordination of care. Triston Riggs M.D. Staff, Interventional Pulmonology. Pulmonary, Allergy & Critical Care Medicine [facility] documented in this encounterAdena Pike Medical Center07-28-2025 NoteTri[facility]07-25-2025 History of Present illness Narrative* Patricia Coello RT(R) - 01/08/2025 1:00 PM EDT Radiology [...] PATIENT PRESENTS WITH AN IMPLANTABLE OR ATTACHED DRY CHAIN PULLER: No RADIOLOGY DEPARTMENT: General X-ray: Exam(s) Completed: Chest X-Ray PERIPHERAL IV DATA: Not applicable SIGNED BY: RT Cleveland(R) January 08, 2025 12:43 PM documented in this encounterAdena Pike Medical Center07-25-2025 NoteTri[facility]07-08-2025 Instructions* Patient Instructions* Marlyn Hooper APRN.CNP [...] procedure, and you can schedule it at [place] or the main campus by calling [phone]. - Additional blood work has been ordered to rule out autoimmune or viral causes of liver damage. You can complete this at [facility] or another lab location. We discussed your kidney health: - Your creatinine levels, which indicate kidney function, are continuing to rise. I recommend seeing a chemist biological (kidney specialist) to evaluate this further and assess your current use of water pills (torsemide). I have placed a referral for nephrology, and you can schedule an appointment by calling [phone]. Virtual visits may also be an option. We discussed your fluid retention and current medication regimen: - Your fluid retention is being managed with torsemide, but the dosing schedule is complex and may need adjustment. A chemist biological can help optimize this to protect your [...] any new concerns, and contact me through [employer] if needed. - I will review the biopsy and blood work results once they are available and contact you with nextsteps. Please let me know if you have any questions or concerns in the meantime. documented in this encounterAdena Pike Medical Center07-08-2025 History of Present illness Narrative* Marlyn Hooper APRN.UNIVERSITY SERVICES PROGRAM ASSOCIATE - 12/22/2024 6:00 PM EDT VIRTUAL VISIT PROGRESS NOTE This is a virtual visit using [employer] Zoom Video Visit. It required patient- provider interaction for the medical decision making as documented below. I have communicated my name and active licensure. The patient's identity and physical location wereverified at the time of this visit. Either the patient or their legal brand representative has been informed of the risks [...] despite evaluation by rheumatology, pulmonology, gastroenterology, and manager cardiovascular, as well as recent vascular testing. The [...] He is not currently followed by a chemist biological, but his creatinine has been rising. An [...] 50-60 lbs lost since his hospitalization at [facility] on 12/19/2022 for lower extremity swelling, [...] 10 mg by mouth once daily. calcium qys-hfc-K0-Zn-microscopist-kian 250 mg-40 mg- 125 unit-3.75mg tab Take [...] isnot currently under the care of a chemist biological. - Referral to nephrology for further evaluation and management. - Provided patient with scheduling number for nephrology appointment. - Advised patient to monitor kidney function closely. I spent a total of 45 minutes on the date of the service which included preparing to see the patient, tazh-ny-tztd patient care, completing clinical documentation, counseling and educating the patient/family/caregiver, ordering medications, tests, or procedures, and communicating results to the raquel ent/family/caregiver Marlyn Hooper APRN.UNIVERSITY SERVICES PROGRAM ASSOCIATE documented in this encounterAdena Pike Medical Center07-08-2025 NoteTri[facility]07-01-2025 History of Present illness Narrative* Jose [...] 10 mg by mouth once daily. calcium luv-jtz-T9-Zn-microscopist-kian 250 mg-40 mg- 125 unit-3.75mg tab Take [...] diaphragmatic excursion. Lungs clear to auscultation. Heart: [place] normal. Precordium quiet. RRR. Normal HS with [...] 2024 TIME: 11:34 AM documented in this encounterAdena Pike Medical Center06-09-2025 Telephone encounter Note * Telephone Encounter - Jahaira Wood - 11/23/2024 1:48 PM EDT Received missed visit notes 11/20/24 and 11/10/24 records scanned in [employer] Jahaira Wood, hotel administrative assistant [facility]06-09-2025 Miscellaneous Notes* Telephone Encounter - Jahaira Wood - 11/23/2024 1:48 PM EDT Received missed visit notes 11/20/24 and 11/10/24 records scanned in [employer] Jahaira Wood hotel administrative assistant documented in this encounterAdena Pike Medical Center06-09-2025 History of Present illness Narrative* Triston Riggs MD - 11/23/2024 12:00 PM EDT Images from the original note were not included. [facility] [place] [facility] CC: Persistent RIGHT pleural effusion Sav Raymundo is a 74 year old male sent by Dr. STEPHANE Cesar MD for evaluation of persistent RIGHT pleural effusion. My final recommendations will be communicated to the requesting health care provider by way of the shared medical record for internal providers or letter via the [employer] for external providers. Assessment and [...] He will complete course of oral antibiotics. [place], [place] is home care provider. He continues [...] 10 mg by mouth once daily. calcium mzf-rtr-V1-Zn-microscopist-kian 250 mg-40 mg- 125 unit-3.75mg tab Take [...] UltraSens C-Reactive Protein <3.1 mg/L 13.2 (H) [facility] Reference Range & Units Most Recent 12/26/23 [...] 1.21 0.95 (L) 0.80 (L) 0.91 (L) Screven% % 7.6 11/12/24 13:30 11.7 12.9 7.3 7.6 Abs Screven <0.87 k/uL 0.67 11/12/24 13:30 0.80 1.03 [...] 36 % 39 80 (H) 80 (H) Screven%, BF % 6 Macro%, BF 64 - [...] with more than 50% of the total nmyx-dp-lowx time of the visit in counseling / coordination of care. Triston Riggs M.D. Staff, Interventional Pulmonology. Pulmonary, Allergy & Critical Care Medicine [facility] documented in this encounterAdena Pike Medical Center06-09-2025 NoteTrihealth [facility]06-09-2025 History of Present illness Narrative* Karsten [...] PATIENT PRESENTS WITH AN IMPLANTABLE OR ATTACHED DRY CHAIN PULLER: No RADIOLOGY DEPARTMENT: General X-ray: Exam(s) Completed: Chest X-Ray PERIPHERAL IV DATA: Not applicable SIGNED BY: RT Franca(R) November 23, 2024 12:31 PM documented in this encounterAdena Pike Medical Center06-09-2025 NoteTri[facility]06-06-2025 NoteTri[facility]06-06-2025 History of Present illness Narrative* Zac Mendiola MD - 11/20/2024 9:23 AM EDT Images from the original note were not included. Heart, Vascular and Thoracic [place] April Baltazar Department of Cardiovascular Medicine SECTION OF INTERVENTIONAL CARDIOLOGY OUTPATIENT VISIT DATE 11/20/2024 OUTPATIENT VISIT TYPE New PRIMARY CARE PHYSICIAN: Jose Antonio Hopper [address] [place] [address] REFERRING PHYSICIAN: No referring provider defined for this encounter. Recording using [employer] software for draft documentation of the visit was discussed with the patient/authorized brand representative; all questions welcomed and answered. Patient/authorized brand representative agreed to proceed HISTORY OF PRESENT [...] 10 mg by mouth once daily. calcium csc-jwc-A2-Zn-microscopist-kian 250 mg-40 mg- 125 unit-3.75mg tab Take [...] of Cardiovascular Medicine Heart, Vascular and Thoracic [place] [facility] Office Office Pager [phone] documented in this encounterAdena Pike Medical Center06-05-2025 NoteTrihealth [facility]06-05-2025 History of Present illness Narrative* Triston Riggs MD - 11/19/2024 3:28 PM EDT Images from the original note were not included. [facility] [place] [facility] CC: Persistent RIGHT pleural effusion Sav Raymundo is a 74 year old male sent by Dr. STEPHANE Cesar MD for evaluation of persistent RIGHT pleural effusion. My final recommendations will be communicated to the requesting health care provider by way of the shared medical record for internal providers or letter via the [employer] for external providers. Assessment and [...] CxR placed He will obtain CxR in [place] as need for perceived recurrence of effusion [...] Catheter not accessed 11/17, 11/18 or today. 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 He continues [...] 10 mg by mouth once daily. calcium cwn-fmb-J8-Zn-microscopist-kian 250 mg-40 mg- 125 unit-3.75mg tab Take [...] UltraSens C-Reactive Protein <3.1 mg/L 13.2 (H) [facility] Reference Range & Units Most Recent 12/26/23 [...] 1.21 0.95 (L) 0.80 (L) 0.91 (L) Screven% % 7.6 11/12/24 13:30 11.7 12.9 7.3 7.6 Abs Screven <0.87 k/uL 0.67 11/12/24 13:30 0.80 1.03 [...] 36 % 39 80 (H) 80 (H) Screven%, BF % 6 Macro%, BF 64 - [...] Pulmonology. Pulmonary, Allergy & Critical Care Medicine [facility] documented in this encounterAdena Pike Medical Center06-05-2025 History of Present illness Narrative* [...] PATIENT PRESENTS WITH AN IMPLANTABLE OR ATTACHED DRY CHAIN PULLER: No RADIOLOGY DEPARTMENT: General X-ray: Exam(s) Completed: Chest X-Ray PERIPHERAL IV DATA: Not applicable SIGNED BY: RT Dimitri(R) November 19, 2024 1:24 PM documented in this encounterAdena Pike Medical Center06-05-2025 NoteTri[facility]06-03-2025 Telephone encounter Note* Telephone Encounter - [...] with physician. She can be reached at [phone] She asked if a detailed voicemail can be left if somehow she misses the call [facility]06-03-2025 Miscellaneous Notes* Telephone Encounter - [...] with physician. She can be reached at [phone] She asked if a detailed voicemail can be left if somehow she misses the call documented in this encounterAdena Pike Medical Center05-30-2025 History of Present illness Narrative* Jose Antonio Hopper MD - 11/13/2024 1:34 PM EDT PROGRESS NOTES Patient Name: Sav Raymundo SERVICE DATE: 11/13/2024 SERVICE TIME: 1:47 PM HPI: Mr. Raymundo is a 74 year old male who presents for Follow Up.Developed significant swelling.[facility] ED.No SOB,no abdominal pain MEDICATIONS: Current Outpatient [...] 10 mg by mouth once daily. calcium ckm-iay-F5-Zn-microscopist-kian 250 mg-40 mg- 125 unit-3.75mg tab Take [...] diaphragmatic excursion. Lungs clear to auscultation. Heart: [place] normal. Precordium quiet. RRR. Normal HS with [...] 2024 TIME: 1:47 PM documented in this encounterAdena Pike Medical Center05-29-2025 NoteTrihealth [facility]05-28-2025 Miscellaneous Notes* Telephone Encounter - Xiomara Ly APRN.CNP - 11/11/2024 5:20 PM EDT Called pt to discuss symptoms. Advised that given reported rapid weight gain over the last 4-5 days, he should be evaluated in the ED to determine if inpatient management is appropriate for worseningsymptoms. Pt verbalized understanding. Xiomara Ly APRN.CNP documented in this encounterAdena Pike Medical Center05-28-2025 Telephone encounter Note * Telephone Encounter - Xiomara Ly APRN.CNP - 11/11/2024 5:20 PM EDT Called pt to discuss symptoms. Advised that given reported rapid weight gain over the last 4-5 days, he should be evaluated in the ED to determine if inpatient management is appropriate for worseningsymptoms. Pt verbalized understanding. Xiomara Ly APRN.UNIVERSITY SERVICES PROGRAM ASSOCIATE [facility] Work Phone: 1(669) 862-455105-21-2025 NoteHNO ID: [id number] Author: CINTIA JOSHI RT(R) Service: Radiology Author [...] PATIENT PRESENTS WITH AN IMPLANTABLE OR ATTACHED DRY CHAIN PULLER: No RADIOLOGY DEPARTMENT: CT; Exam(s) Completed: Enterography PERIPHERAL IV DATA: Not applicable SIGNED BY: RT Cachorro(R) November 04, 2024 1:24 [facility] [id number] NoteHNO ID: [id number] Author: DRAGAN LOPEZ CT Service: Radiology Author [...] November 04, 2024 TIME: 2:57 PM PAGER/CONTACT #:[facility] [phone] History of Present illness Narrative* Riley Rowley [...] PATIENT PRESENTS WITH AN IMPLANTABLE OR ATTACHED DRY CHAIN PULLER: No RADIOLOGY DEPARTMENT: Ultrasound PERIPHERAL IV DATA: Not applicable SIGNED BY: Riley Rowley RDMS, RVT October 23, 2024 2:13 PM documented in this encounterAdena Pike Medical Center05-09-2025 NoteHNO ID: [id number] Author: RILEY ROWLEY RDMS, RVT Service: Radiology Author Type: Knockdown Man Type: Progress Notes Filed: 10/23/2024 14:13 Note [...] PATIENT PRESENTS WITH AN IMPLANTABLE OR ATTACHED DRY CHAIN PULLER: No RADIOLOGY DEPARTMENT: Ultrasound PERIPHERAL IV DATA: Not applicable SIGNED BY: Riley Rowley RDMS, [place] October 23, 2024 2:13 [facility] [id number] Telephone encounter Note* Telephone Encounter - Jahaira Wood - 10/23/2024 10:20 AM EDT Received missed visit note from [facility] 10/14/24, record scanned in [employer] Wood, hotel administrative assistant [facility]05-09-2025 Miscellaneous Notes* Telephone Encounter - Jahaira Wood - 10/23/2024 10:20 AM EDT Received missed visit note from [facility] 10/14/24, record scanned in [employer] Jahaira Wood, hotel administrative assistant documented in this encounterAdena Pike Medical Center05-07-2025 Telephone encounter Note * Telephone [...] understanding and agreeable to advisement. Xiomara Ly APRN.CURT [facility]05-07-2025 Miscellaneous Notes* Telephone Encounter - [...] understanding and agreeable to advisement. Xiomara Ly APRN.CURT documented in this encounterAdena Pike Medical Center05-01-2025 History of Present illness Narrative* Zabrina Suarez MD - 10/15/2024 9:20 AM EDT [facility] SERVICE DATE: 10/15/2024 [...] 1 tablet by mouth once daily. calcium aco-ema-D5-Zn-microscopist-kian 250 mg-40 mg- 125 unit-3.75mg tab Take [...] PHYSICIAN: Yuli Mariscal DO documented in this encounterAdena Pike Medical Center05-01-2025 NoteTri[facility]04-30-2025 Miscellaneous Notes* Telephone Encounter - Xiomara Ly APRN.CNP - 10/14/2024 4:00 PM EDT This concern was discussed and addressed at 10/14/24 appointment. Xiomara Ly APRN.CNP documented in this encounterAdena Pike Medical Center04-30-2025 Telephone encounter Note * Telephone Encounter - Xiomara Ly APRN.CNP - 10/14/2024 4:00 PM EDT This concern was discussed and addressed at 10/14/24 appointment. Xiomara Ly APRN.CNP [facility] Work Phone: [phone]) [phone] Instructions* Patient Instructions* Xiomara Ly APRN.CNP - [...] pt on sooner follow-up documented in this encounterAdena Pike Medical Center04-30-2025 History of Present illness Narrative* Xiomara Ly APRN.CURT - 10/14/2024 3:00 PM EDT SUBJECTIVE 74 [...] 10 mg by mouth once daily. calcium sug-zxr-M5-Zn-microscopist-kian 250 mg-40 mg- 125 unit-3.75mg tab Take [...] which included preparing to see the patient, [id number]-[id number] patient care, completing clinical documentation, obtaining and/or reviewing separately obtained history, performing a medically appropriate examination, counseling and educating the pat ient/family/caregiver, and ordering medications, tests, or procedures. Xiomara Ly APRN.CURT 10/15/2024 9:00 AM documented in this encounterAdena Pike Medical Center04-30-2025 NoteTri[facility]04-30-2025 NoteTri[facility]04-30-2025 History of Present illness Narrative* Triston Riggs MD - 10/14/2024 1:04 PM EDT Images from the original note were not included. [facility] [place] [facility] CC: Persistent RIGHT pleural effusion Sav Raymundo is a 74 year old male sent by Dr. STEPHANE Cesar MD for evaluation of persistent RIGHT pleural effusion. My final recommendations will be communicated to the requesting health care provider by way of the shared medical record for internal providers or letter via the [employer] for external providers. Assessment and [...] persistent RIGHT pleural effusion with TPC placed lastJun2023 during VATS thoracoscopy with pleural biopsy and [...] did he have some sense of limitation. 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 Since he [...] Raymundo is a 71 y/o, from the [facility], here for follow-up for pleural effusion. [...] referred for pleurodesis to thoracic surgery in [facility], which he underwent inJune 2023. Though no pleural fluid analysis done, but pleural biopsy showed pleuritis. Post pleurodesis, he continued to have significant drainage, tunneled pleural catheter was placed. He was then hospitalized ( abdominal bloating ) -in [facility], and responded well to diuresis. 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 calcium kpb-wlu-Y4-Zn-microscopist-kian 250 mg-40 mg- 125 unit-3.75mg tab Take [...] 0.1 10/15/2024 Abs Neut 9.45 10/15/2024 Abs Screven 0.81 10/15/2024 Abs Eosin <0.03 10/15/2024 Abs [...] 36 % 39 80 (H) 80 (H) Screven%, BF % 6 Macro%, BF 64 - [...] Pulmonology. Pulmonary, Allergy & Critical Care Medicine [facility] documented in this encounterAdena Pike Medical Center04-29-2025 History of Present illness Narrative* Patricia Coello RT(R) - 10/13/2024 1:00 PM EDT Radiology [...] PATIENT PRESENTS WITH AN IMPLANTABLE OR ATTACHED DRY CHAIN PULLER: No RADIOLOGY DEPARTMENT: General X-ray: Exam(s) Completed: Chest X-Ray PERIPHERAL IV DATA: Not applicable SIGNED BY: RT [place](R) October 13, 2024 1:12 PM documented in this encounterAdena Pike Medical Center04-29-2025 NoteTrihealth [facility]04-18-2025 NoteTri[facility]04-18-2025 History of Present illness Narrative* Katerina [...] agreement. Katerina Contreras PA-C documented in this encounterAdena Pike Medical Center04-11-2025 NoteQ3 Patient Name: Sav Raymundo Procedure Date: 09/25/2024 11:14 AM Date of : 1950 Admit Type: Outpatient Age: 74 Gender: Male Note Status: Finalized Attending MD: Shay Dennis , , [id number] Procedure: Upper GI endoscopy Indications: Dysphagia Providers: [...] by the physician, the nurse and the systems software designer in the pre-procedure area in the endoscopy [...] Integrity. Impression: - Nor (more content not included)...[id number] Nurse Note* Obi Flower, MANAGER OPERATING - 09/25/2024 11:52 AM EDT AMBULATORY PATIENT [...] MATERIAL: Procedure Discharge Instructions REFERRAL (RECOMMENDATION): None [facility]04-11-2025 Nurse Note* Obi Flower LPN [...] RN In Department: GASTROENTEROLOGY documented in this encounterAdena Pike Medical Center04-11-2025 History and physical note * Shay Dennis MD - 09/25/2024 11:30 AM EDT ENDOSCOPY HISTORY AND PHYSICAL EXAM Sav Raymundo [id number] Subjective HPI: This is a 74 year [...] an EGD with dilation using a 60 Chilean Keller dilator in April 2024 PAST ANESTHESIA [...] 1 tablet by mouth once daily. calcium siu-bsg-L3-Zn-microscopist-kian 250 mg-40 mg- 125 unit-3.75mg tab Take [...] signed Shay Dennis MD 09/24/2024 4:08 PM [facility]04-11-2025 History and physical note* Shay Dennis MD - 09/25/2024 11:30 AM EDT ENDOSCOPY HISTORY AND PHYSICAL EXAM Sav Cantu Breanne [id number] Subjective HPI: This is a 74 year [...] an EGD with dilation using a 60 Chilean Keller dilator in April 2024 PAST ANESTHESIA [...] 1 tablet by mouth once daily. calcium bla-icp-R8-Zn-microscopist-kian 250 mg-40 mg- 125 unit-3.75mg tab Take [...] MD 09/24/2024 4:08 PM documented in this encounterAdena Pike Medical Center04-11-2025 Nurse Note* Amrik Mast RN - 09/25/2024 10:48 AM EDT PRE OP LEARNING ASSESSMENT PROCEDURE/SURGERY: GI PROCEDURES: EGD READINESS TO LEARN COGNITIVE ABILITY: Alert and oriented MOTIVATION TO LEARN: Interested FAMILY SUPPORT: High - Very involved in pt care PATIENT LEARNS BEST BY: Individual Instruction FACTORS AFFECTING LEARNING: None PHYSICAL LIMITATIONS AFFECTING LEARNING: None Electronically Signed By: Amrik Mast, RN In Department: GASTROENTEROLOGY [facility]04-09-2025 Telephone encounter Note* Telephone Encounter - Jahaira Wood - 09/23/2024 11:59 AM EDT Received missed visit notes from [facility] Health Records scanned in [employer] Jahaira Wood, hotel administrative assistant [facility]04-09-2025 Miscellaneous Notes* Telephone Encounter - Jahaira Wood - 09/23/2024 11:59 AM EDT Received missed visit notes from [facility] Health Records scanned in [employer] Jahaira Wood, hotel administrative assistant documented in this encounterAdena Pike Medical Center04-04-2025 Nurse Note* Melinda Calderón RN [...] have family/friend present for procedure transport home:Patient/patient brand representative was told that if they do [...] area. Any barriers to Patient learning: Patient/Patient Cotton Bag Clipper responded appropriately on phone. Type of instruction given: Verbal by telephone contact. Melinda Calderón RN [facility]04-04-2025 Nurse Note* Melinda Calderón RN [...] have family/friend present for procedure transport home:Patient/patient brand representative was told that if they do [...] area. Any barriers to Patient learning: Patient/Patient Cotton Bag Clipper responded appropriately on phone. Type of instruction given: Verbal by telephone contact. Melinda Calderón RN documented in this encounterAdena Pike Medical Center03-31-2025 Telephone encounter Note * Telephone Encounter - Andree Colby RN - 09/14/2024 12:56 PM EDT Left message on EVAN Campos's voicemail after d/w pleaural team. Pleurx is draining as expected. Stomach distention should not be a symptom of pleural drainage and may need to be further evaluated in GI or the ED if symptoms persists. [facility]03-31-2025 Miscellaneous Notes* Telephone Encounter - [...] - 09/14/2024 10:28 AM EDT Beth from [facility] called with an update. They have started draining on daily for pluerx catheter. They have been getting between 170 and 210 daily. Patient had SOB on and denies SOB other days. Stomach is distended Beth can be reached at [phone] documented in this encounterAdena Pike Medical Center03-31-2025 Telephone encounter Note * Telephone Encounter - Amanda Brooks - 09/14/2024 10:28 AM EDT Beth from [facility] called with an update. They have started draining on daily for pluerx catheter. They have been getting between 170 and 210 daily. Patient had SOB on and denies SOB other days. Stomach is distended Beth can be reached at [phone] [facility]03-25-2025 NoteTrihealth [facility]03-21-2025 History of Present illness Narrative* Jose [...] mouth once daily. 90 tablet 0 calcium ems-shr-O1-Zn-microscopist-kian 250 mg-40 mg- 125 unit-3.75mg tab Take [...] diaphragmatic excursion. Lungs clear to auscultation. Heart: [place] normal. Precordium quiet. RRR. Normal HS with [...] 2024 TIME: 2:11 PM documented in this encounterAdena Pike Medical Center03-21-2025 NoteTrihealth [facility]03-21-2025 Telephone encounter Note* Telephone Encounter - Benny Johnson - 09/04/2024 10:57 AM EDT 09/04 - [facility]03-21-2025 Miscellaneous Notes* Telephone Encounter - Benny Johnson - 09/04/2024 10:57 AM EDT 09/04 - Scheduled patient for Thoracentesis at desk for 09/08 @ documented in this encounterAdena Pike Medical Center03-19-2025 Telephone encounter Note * Telephone Encounter - Hanane Bonilla APRN.CNP - 09/02/2024 4:13 PM EDT Spoke with [facility] who states they have not had steroid injection yet (updated). She is wondering aboutbest practice to get PleurX to drain and if it is okay to have patient cough during draining. Advised that coughing is okay during draining. Currently draining daily till appointment with Dr. Riggs. All questions answered to satisfaction. Hanane Bonilla APRN.CNP 4:22 PM, 09/02/2024 [facility] Work Phone: [phone] Miscellaneous Notes* Telephone Encounter - Hanane Bonilla APRN.CNP - 09/02/2024 4:13 PM EDT Spoke with [facility] who states they have not had steroid [...] from the original note were not included. [facility] [place] Phone Encounter DATE of SERVICE: 09/02/2024 TIME of SERVICE: 3:57 PM Status: Non-urgent, needs attention Service/Provider: Thoracic Surgery Ronaldo Flood M.D. Reason for call: Care Coordination Contact information: Roney Campos Home Care nurse, Resolution: Sent to [employer] Comments: Roney Campos home care nurse, called [...] of Resolution 3:57 PM documented in this encounterAdena Pike Medical Center03-19-2025 Telephone encounter Note * Telephone Encounter - Susan Rodas RN - 09/02/2024 3:57 PM EDT Images from the original note were not included. [facility] Phone Encounter DATE of SERVICE: 09/02/2024 TIME of SERVICE: 3:57 PM Status: Non-urgent, needs attention Service/Provider: Thoracic Surgery Ronaldo Flood M.D. Reason for call: Care Coordination Contact information: Roney Campos Home Care nurse, Resolution: Sent to [employer] Comments: Roney Campos home care nurse, called [...] Resolution: 09/02/2024 Time of Resolution 3:57 PM [facility]2025 History of Present illness Narrative* [...] limited to risks of scarring, darker or aircraft general repair mechanic pigmentary changes, recurrence, incomplete removal and infection. [...] both legs Left Lower Leg - Anterior Bond scaly plaques in areas of edema, mild, [...] Next Visit: 1 year documented in this encounterProgress West [id number] Telephone encounter Note* Telephone Encounter - Britney Hsu RN - 08/26/2024 4:27 PM EDT Patient spouse (ayaka) returned call. Verified patient name and . Advised potassium levels were low and elevated kidney function. To please follow up with PCP and Dr. Hopper. verbalized understanding and agreed, Will follow up as needed. Britney Shen RN [facility]03-12-2025 Miscellaneous Notes* Telephone Encounter - [...] Hopper for further management documented in this encounterAdena Pike Medical Center03-12-2025 Telephone encounter Note * Telephone [...] follow up as needed. Britney Shen RN [facility]03-12-2025 Progress note* Result Encounter Note - Sue Murillo MD - 08/26/2024 12:41 PM EDT Please call patient and let him know that his potassium levels are down with elevated kidney function test. He is already on potassium supplements. Needs to touch base with his PCP and Dr Hopper for further management [facility] Work Phone: [phone]) 270-734203-10-2025 History of Present illness Narrative* Sue Murillo MD - 08/24/2024 11:00 AM EDT Follow Up Visit SUBJECTIVE 74 year old male with lymphocytic colitis here for follow-up. Last seen 05/26/2024. Changes and test results since last visit: He is off of budesonide since a month Coughing, vomiting and swallowing issues. Started on Lost about 11 lbs weight loss. Government Instructor wants to start steroid injections directly into [...] mouth once daily. 90 tablet 0 calcium dul-jjk-W1-Zn-microscopist-kian 250 mg-40 mg- 125 unit-3.75mg tab Take [...] can eat some more. documented in this encounterAdena Pike Medical Center03-10-2025 NoteTrihealth [facility]03-10-2025 NoteTrihealth [facility]03-07-2025 Telephone encounter Note* Telephone Encounter - Ayana Cheung RN - 08/21/2024 10:28 AM EST Images from the original note were not included. [facility] Phone Encounter DATE of SERVICE: 08/21/2024 TIME of SERVICE: 10:28 AM Status: Non-urgent, needs attention Service/Provider: Thoracic Surgery Ronaldo Flood M.D. Reason for call: Care Coordination Contact information: Roney Campos Home Care nurse, Resolution: Sent to [facility] Comments: Roney Campos home care nurse, called [...] Resolution: 08/21/2024 Time of Resolution 10:28 AM [facility]03-07-2025 Miscellaneous Notes* Telephone Encounter - Ayana Cheung RN - 08/21/2024 10:28 AM EST Images from the original note were not included. [facility] Phone Encounter DATE of SERVICE: 08/21/2024 TIME of SERVICE: 10:28 AM Status: Non-urgent, needs attention Service/Provider: Thoracic Surgery Ronaldo Flood M.D. Reason for call: Care Coordination Contact information: Roney Campos Home Care nurse, Resolution: Sent to [facility] Comments: Roney Campos home care nurse, called the [facility] post-discharge line to ask to speak [...] of Resolution 10:28 AM documented in this encounterAdena Pike Medical Center03-04-2025 NoteTrihealth [facility]03-04-2025 History of Present illness Narrative* Della Barragan APRN.CNP - 08/18/2024 2:06 PM EST Images from the original note were not included. Heart, Vascular and Thoracic [place] DEPARTMENT OF THORACIC SURGERY OUTPATIENT VISIT TYPE ESTABLISHED Part of this note was copied from previous note, all content has been individually reviewed, updated as necessary, and thoroughly reviewed. PT NAME: Sav Raymundo CLINIC NO: [id number] THORACIC SURGEON: Ronaldo Flood M.D. DATE OF SERVICE: 08/18/2024 PRINCIPAL DX: Pleural Effusion SURGICAL HX 11/20/2023: R VATS pleural biopsy, right instrument mechanics supervisor and doxycycline pleurodesis, right Pleurx catheter insertion, [...] reactive proliferation. [facility]ella [facility]anian [facility] [...] 11/20/2023, patient underwent R VATS pleuralbiopsy, right instrument mechanics supervisor and doxycycline pleurodesis, right Pleurx catheter insertion, right 20Fr chest tube insertion. He was hospitalized 12/20/23 for anasarca, possible autoimmune disease, recurrent pleural effusion. Imaging did not reveal any acute findings. Patient was admitted to [facility] and started on lasix drip, improving anasarca and pleural effusion. Pleurx catheter was drained daily with significantly decreasing output [phone]. 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 Flood. PLAN: - continue draining the pleurex daily - Dr Riggs/pulm to perform intrapleural steroid injection - return as needed Della Barragan APRN.UNIVERSITY SERVICES PROGRAM ASSOCIATE documented in this encounterAdena Pike Medical Center02-28-2025 NoteRight Eye Quality was good. Scan locations included subfoveal. Progression has been stable. Findings include normal observations. Left Eye Quality was good. Scan locations included subfoveal. Progression has been stable. Findings include normal observations. Notes Good scan with normal appearanceProgress West [id number] NoteTrihealth Bethes[facility]02-26-2025 History of Present illness Narrative* Anne-Marie Bajwa, - 08/12/2024 3:00 PM EST Images from [...] laser capsulotomy, they are to notify their investigative writer promptly if they have a significant change [...] resolution of the lesion. documented in this encounterProgress West [id number] Telephone encounter Note* Telephone Encounter - Maggie Leon - 08/12/2024 12:42 PM EST Patient requesting return call from Katerina. Please call [phone] I informed patient Beth from [facility] called today and spoke with office. [facility]02-26-2025 Miscellaneous Notes* Telephone Encounter - Maggie Leon - 08/12/2024 12:42 PM EST Patient requesting return call from Katerina. Please call [phone] I informed patient Beth from [facility] called today and spoke with office. documented in this encounterAdena Pike Medical Center02-26-2025 Telephone encounter Note * Telephone Encounter - Amanda Brooks - 08/12/2024 12:27 PM EST Beth from [facility] called and would like to speak to Katerina. Spoke with Beth She informed me that pt going to local ED for evaluation. Update: Pt had b/l US - report from [facility] was negative for DVTs was received and sent to be entered into scanned docs. Pt notified of results. Katerina Contreras PA-C [facility]02-26-2025 Miscellaneous Notes* Telephone Encounter - Amanda Brooks - 08/12/2024 12:27 PM EST Beth from [facility] called and would like to speak to Katerina. Spoke with Beth She informed me that pt going to local ED for evaluation. Update: Pt had b/l US - report from [facility] was negative for DVTs was received and sent to be entered into scanned docs. Pt notified of results. Katerina Contreras PA-C documented in this encounterAdena Pike Medical Center02-26-2025 Telephone encounter Note * Telephone Encounter - Maggie Leon - 08/12/2024 10:21 AM EST Beth from [facility] called and updated she left a voicemail regarding this patient. He is having issues with pleurrX drain, swelling, weight gain, nausea and constipation. She would like acall back at [phone] Spoke with pt's [facility] nurse, Beth. Pt still draining daily [...] Flood. Of note, they are meeting with APPRENTICESHIP TRAINING REPRESENTATIVE Della Barragan on , 08/18/24. Update communicated to Dr. Riggs. Katerina Contreras PA-C Addendum: Nurse reports pt plans on going to local hospital Katerina Contreras PA-C [facility]02-26-2025 Miscellaneous Notes* Telephone Encounter - Maggie Leon - 08/12/2024 10:21 AM EST Beth from [facility] called and updated she left a voicemail regarding this patient. He is having issues with pleurrX drain, swelling, weight gain, nausea and constipation. She would like acall back at [phone] Spoke with pt's [facility] nurse, Beth. Pt still draining daily [...] Flood. Of note, they are meeting with APPRENTICESHIP TRAINING REPRESENTATIVE Della Barragan on , 08/18/24. Update communicated to Dr. Riggs. Katerina Contreras PA-C Addendum: Nurse reports pt plans on going to local hospital Katerina Contreras PA-C documented in this encounterAdena Pike Medical Center02-24-2025 Telephone encounter Note * Telephone Encounter - mAanda Brooks - 08/10/2024 9:35 AM EST Beth from [facility] called and would like to speak to Katerina regarding patient symptoms [facility]02-24-2025 Miscellaneous Notes* Telephone Encounter - Amanda Brooks - 08/10/2024 9:35 AM EST Beth from [facility] called and would like to speak to Katerina regarding patient symptoms documented in this encounterAdena Pike Medical Center02-18-2025 Telephone encounter Note * Telephone Encounter - Maggie Leon - 08/04/2024 10:23 AM EST Call received from home care NurseBeth. She wanted to update our office that she is waiting to hear back from dr Flood. Patient is having issues with pleurix and they are unsure if it's due to clogging or if it's positional. Beth can be reached at [phone] [facility]02-18-2025 Miscellaneous Notes* Telephone Encounter - Maggie Leon - 08/04/2024 10:23 AM EST Call received from home care NurseBeth. She wanted to update our office that she is waiting to hear back from dr Flood. Patient is having issues with pleurix and they are unsure if it's due to clogging or if it's positional. Beth can be reached at [phone] * Telephone Encounter - Amanda Brooks - 08/03/2024 2:20 PM EST Patient called and would like to know the status of next upcoming steps. Patient asked ifDr. Riggs has spoken with Dr. Flood. Additionally stated the drainage for the past week to present. Home health care is concerned their may be blockage (a clog) in tube. 07/27- 160 daily drain 07/28 - 60 07/29-2/15 - 150 each day Yesterday - 20 Today - 35 Virgen (patient ) [phone] Patient [phone] documented in this encounterAdena Pike Medical Center02-18-2025 Telephone encounter Note * Telephone Encounter - Jahaira Wood - 08/04/2024 8:38 AM EST Received missed visit notes from [facility], record scannned in [employer] Jahaira Wood, hotel administrative assistant [facility]02-18-2025 Miscellaneous Notes* Telephone Encounter - Jahaira Wood - 08/04/2024 8:38 AM EST Received missed visit notes from [facility], record scannned in [employer] Jahaira Wood, hotel administrative assistant documented in this encounterAdena Pike Medical Center02-17-2025 Telephone encounter Note * Telephone [...] clog) in tube. 07/27- 160 daily drain 07/28 - 60 07/29-08/01 - 150 each day Yesterday - 20 Today - 35 Virgen (patient ) [phone] Patient [phone] [facility]02-04-2025 History of Present illness Narrative* Jose Antonio Hopper MD - 07/21/2024 2:19 PM EST PROGRESS NOTES Patient Name: Sav Raymundo SERVICE DATE: 07/21/2024 SERVICE TIME: 2:25 PM HPI: Mr. Raymundo is a 74 year old male who presents for Effusion.Has been emptying Plerax catheter daily.Has been seeing mineral industry teacher at [facility].Pleural fluid analysis has been done MEDICATIONS: Current Outpatient Medications Medication Sig Dispense Refill potassium chloride ER (KLOR-CON M20) 20 mEq tablet Take 2 tablets by mouth two times a day. 360 tablet 0 torsemide (DEMADEX) 100 mg tablet Take 1 tablet by mouth once daily. 90 tablet 0 calcium qbq-rii-Y2-Zn-microscopist-kian 250 mg-40 mg- 125 unit-3.75mg tab Take [...] diaphragmatic excursion. Lungs clear to auscultation. Heart: [place] normal. Precordium quiet. RRR. Normal HS with [...] 2024 TIME: 2:25 PM documented in this encounterAdena Pike Medical Center02-03-2025 History of Present illness Narrative* Triston Riggs MD - 07/20/2024 1:00 PM EST Images from the original note were not included. [facility] [place] [facility] CC: Persistent RIGHT pleural effusion Sav Raymundo is a 74 year old male sent by Dr. STEPHANE Cesar MD for evaluation of persistent RIGHT pleural effusion. My final recommendations will be communicated to the requesting health care provider by way of the shared medical record for internal providers or letter via the [employer] for external providers. Assessment and [...] did he have some sense of limitation. 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 Excerpt from Dr Cesar 05/20/2024. Mr Raymundo is a 71 y/o, from the [facility], here for follow-up for pleural effusion. [...] referred for pleurodesis to thoracic surgery in [facility], which he underwent Jesus 2023. Though no pleural fluid analysis done, but pleural biopsy showed pleuritis. Post pleurodesis, he continued to have significant drainage, tunneled pleural catheter was placed. He was then hospitalized ( abdominal bloating ) -in [facility], and responded well to diuresis. He has [...] other day) -Rheumatologic assessment done, workup negative, superintendent oil well services has no evidence of any autoimmune disease -Off prednisone for the last 5 months -Off Plaquenil for the past 3 weeks -On diuretics, now on torsemide Interestingly, on further discussion, mostly with superintendent oil well services, we have uncovered that he has been [...] mouth once daily. 90 tablet 0 calcium wmc-roo-O2-Zn-microscopist-kian 250 mg-40 mg- 125 unit-3.75mg tab Take [...] 0.5 04/20/2024 Abs Neut 5.91 04/20/2024 Abs Screven 1.03 04/20/2024 Abs Eosin <0.03 04/20/2024 Abs [...] 36 % 39 80 (H) 80 (H) Screven%, BF % 6 Macro%, BF 64 - [...] Pulmonology. Pulmonary, Allergy & Critical Care Medicine [facility] documented in this encounterAdena Pike Medical Center02-03-2025 [facility]01-31-2025 NoteHNO ID: [id number] Author: KATERINA CONTRERAS PA-C Service: ? Author Type: Physician Eap Specialist Type: Progress Notes Filed: 07/17/2024 14:02 Note Text: Orders for pleurX vacuum bottles signed and faxed back to [facility]. [facility] History of Present illness Narrative* Katerina Contreras PA-C - 07/17/2024 2:01 PM EST Orders for pleurX vacuum bottles signed and faxed back to [facility]. Katerina Contreras PA-C documented in this encounterAdena Pike Medical Center01-30-2025 Telephone encounter Note * Telephone Encounter - Maggie Leon - 07/16/2024 2:53 PM EST Called patient's and informed her that there isn't any indication in Dr. Riggs's office notes that request any lab work at this time. [facility]01-30-2025 Miscellaneous Notes* Telephone Encounter - Maggie Leon - 07/16/2024 2:53 PM EST Called patient's and informed her that there isn't any indication in Dr. Riggs's office notes that request any lab work at this time. * Telephone Encounter - Maggie Leon - 07/16/2024 12:45 PM EST Patient is a lab in [facility] and they only see orders for body fluid, which they are unable to do. Patient would like to confirm if blood labs will need to be drawn. If so, facility will need thoseorders Admin will follow up at [phone] documented in this encounterAdena Pike Medical Center01-30-2025 Telephone encounter Note * Telephone Encounter - Maggie Leon - 07/16/2024 12:45 PM EST Patient is a lab in [facility] and they only see orders for body fluid, which they are unable to do. Patient would like to confirm if blood labs will need to be drawn. If so, facility will need thoseorders Admin will follow up at [phone] [facility]01-28-2025 Evaluation note* Diagnosis Onset Date Resolution Status Admit Date Nausea & vomiting acuteJanuary 2024 4:27pmViral respiratory illnessacuteJanuary 2024 4:27pm [facility] Work Phone: 1(615) 550-785401-22-2025 NoteTri[facility]01-22-[facility] History of Present illness Narrative* Katerina Contreras PA-C - 07/08/2024 9:41 AM EST Received fax from [employer] for signature for updated pleurX draining order to daily draining for 2 months. This was completed and faxed back to them. Katerina Contreras PA-C documented in this encounterAdena Pike Medical Center01-06-2025 NoteTri[facility]01-06-2025 History of Present illness Narrative* Katerina Contreras PA-C - 06/22/2024 3:10 PM EST Per request of Dr. Riggs, we plan on increasing his pleurX catheter draining to everyday. Updated orders sent to [facility] (supplies) and [facility] (faxed to [phone]). His home nurseis Beth, work cell [phone]. She is to call us if sudden cessation of drainage or 3 subsequent drains of less than 100 ml. Katerina Contreras PA-C documented in this encounterAdena Pike Medical Center01-06-2025 History and physical note * Triston Riggs MD - 06/22/2024 9:00 AM EST Images from the original note were not included. [facility] CC: Persistent RIGHT pleural effusion Sav Raymundo is a 74 year old male sent by Dr. STEPHANE Cesar MD for evaluation of persistent RIGHT pleural effusion. My final recommendations will be communicated to the requesting health care provider by way of the shared medical record for internal providers or letter via the [employer] for external providers. Assessment and [...] persistent RIGHT pleural effusion with TPC placed lastJun2023 during VATS thoracoscopy with pleural biopsy and [...] did he have some sense of limitation. 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 Excerpt from Dr Cesar 05/20/2024. Mr Raymundo is a 71 y/o, from the [place] area, here for follow-up for pleural effusion. [...] referred for pleurodesis to thoracic surgery in [facility], which he underwent inJune 2023. Though no pleural fluid analysis done, but pleural biopsy showed pleuritis. Post pleurodesis, he continued to have significant drainage, tunneled pleural catheter was placed. He was then hospitalized ( abdominal bloating ) -in [facility], and responded well to diuresis. He has [...] other day) -Rheumatologic assessment done, workup negative, superintendent [employer] well services has no evidence of any autoimmune disease -Off prednisone for the last 5 months -Off Plaquenil for the past 3 weeks -On diuretics, now on torsemide Interestingly, on further discussion, mostly with superintendent oil well [employer], we have uncovered that he has been [...] Current Outpatient Medications Medication Sig Dispense Refill grgdch-vmiypdas-vtcgdii (CREON) 36,000-114,000- 180,000 unit delayed release capsule Take 2 capsules by mouth three times a day with meals. 200 capsule 1 potassium chloride ER (KLOR-CON M20) 20 mEq tablet Take 2 tablets by mouth two times a day. 360 tablet 0 torsemide (DEMADEX) 100 mg tablet Take 1 tablet by mouth once daily. 90 tablet 0 calcium zod-osg-G3-Zn-microscopist-kian 250 mg-40 mg- 125 unit-3.75mg tab Take [...] 0.5 04/20/2024 Abs Neut 5.91 04/20/2024 Abs Screven 1.03 04/20/2024 Abs Eosin <0.03 04/20/2024 Abs [...] Pulmonology. Pulmonary, Allergy & Critical Care Medicine [facility] Work Phone: 1(848) 787-983101-06-2025 History and physical note* Triston Riggs MD - 06/22/2024 9:00 AM EST Images from the original note were not included. [facility] CC: Persistent RIGHT pleural effusion Sav Raymundo is a 74 year old male sent by Dr. STEPHANE Cesar MD for evaluation of persistent RIGHT pleural effusion. My final recommendations will be communicated to the requesting health care provider by way of the shared medical record for internal providers or letter via the [employer] for external providers. Assessment and [...] did he have some sense of limitation. [place], [place] is home care provider. Excerpt from Dr Cesar 05/20/2024. Mr Raymundo is a 71 y/o, from the [facility], here for follow-up for pleural effusion. [...] referred for pleurodesis to thoracic surgery in [facility], which he underwent inJune 2023. Though no pleural fluid analysis done, but pleural biopsy showed pleuritis. Post pleurodesis, he continued to have significant drainage, tunneled pleural catheter was placed. He was then hospitalized ( abdominal bloating ) -in [facility], and responded well to diuresis. He has [...] other day) -Rheumatologic assessment done, workup negative, superintendent oil well services has no evidence of any autoimmune disease -Off prednisone for the last 5 months -Off Plaquenil for the past 3 weeks -On diuretics, now on torsemide Interestingly, on further discussion, mostly with superintendent oil well services, we have uncovered that he has been [...] Current Outpatient Medications Medication Sig Dispense Refill ruhbet-dcvsnsmx-jvertnf (CREON) 36,000-114,000- 180,000 unit delayed release capsule Take 2 capsules by mouth three times a day with meals. 200 capsule 1 potassium chloride ER (KLOR-CON M20) 20 mEq tablet Take 2 tablets by mouth two times a day. 360 tablet 0 torsemide (DEMADEX) 100 mg tablet Take 1 tablet by mouth once daily. 90 tablet 0 calcium ldn-ntz-Z1-Zn-microscopist-kian 250 mg-40 mg- 125 unit-3.75mg tab Take [...] 0.5 04/20/2024 Abs Neut 5.91 04/20/2024 Abs Screven 1.03 04/20/2024 Abs Eosin <0.03 04/20/2024 Abs [...] Pulmonology. Pulmonary, Allergy & Critical Care Medicine [facility] documented in this encounterAdena Pike Medical Center12-27-2024 History of Present illness Narrative* [...] 2 in PM) 120 tablet 2 calcium yne-huj-S0-Zn-microscopist-kian 250 mg-40 mg- 125 unit-3.75mg tab Take [...] Take 1 tablet by mouth once daily. dtwzdm-kjdsseci-alaieya (CREON) 36,000-114,000- 180,000 unit delayed release capsule [...] diaphragmatic excursion. Lungs clear to auscultation. Heart: [place] normal. Precordium quiet. RRR. Normal HS with [...] 2024 TIME: 3:04 PM documented in this encounterAdena Pike Medical Center12-18-2024 NoteTrihealth [facility]12-18-2024 History of Present illness Narrative* Steffen Mccarty MD - 06/03/2024 10:23 AM EST Images from the original note were not included. Rheumatology FOLLOW UP VISIT Date of Service: 06/01/2024 Patient: Sav Raymundo Medical Record: [id number] Primary Care Physician: Yuli Mariscal DO Last [...] PMHx except for bilateral knee replacements and [place] fracture s/p surgery who presents for evaluation [...] for malignancy) Then decided to come to [facility] for second opinion. Saw Thoracic surgery first and underwent on 11/20/2023 R VATS with R instrument mechanics supervisor and doxyxyclyine pleurodesis, pleural biopsy. Biopsy notable [...] disease INTERVAL HISTORY Since last visit Mr. Ang has been doing much better He was [...] in Am and 2 in PM) calcium gto-wrv-N8-Zn-microscopist-kian 250 mg-40 mg- 125 unit-3.75mg tab Take [...] AI <0.2 Sm Antibody Negative Negative Ribosomal RESIDENTIAL DOOR UNIT INSTALLER Ab <1.0 AI <0.2 Ribosomal RESIDENTIAL DOOR UNIT INSTALLER Qualitative Negative Negative Chromatin Ab <1.0 AI <0.2 Chromatin Ab Qual Negative Negative SSA Antibody Qual Negative Negative Anti-SSA <1.0 AI <0.2 Anti-SSB <1.0 AI <0.2 RESIDENTIAL DOOR UNIT INSTALLER Antibody QUAL Negative Negative Scleroderma Ab Qual [...] on 06/01/2024 Name Date COVID-19 vaccine, monovalent ([facility] [facility]) 09/13/2020, 08/22/2020, 08/15/2020 influenza (aIIV3) vaccine 05/09/2020 [...] Full ROM in flexion and extension. Full drafter geophysical strength. No swelling or synovitis along the [...] is currently no information documented on the [facility]. Go to the Rheumatology activity andcomplete the [facility] joint exam. Joint Exam 06/01/2024 No joint [...] which included preparing to see the patient, erih-xt-hkjc patient care, completing clinical documentation, obtaining and/or reviewing separately obtained history, performing a medically appropriate examination, and counseling and educating the patient/family/caregiver. Steffen Villa MD Rheumatology Date: June 03, 2024 Time: 10:43 AM documented in this encounterAdena Pike Medical Center12-10-2024 History of Present illness Narrative* [...] times a day. 120 tablet 2 calcium wtn-dya-N8-Zn-microscopist-kian 250 mg-40 mg- 125 unit-3.75mg tab Take [...] 26, 2024 9:42 AM documented in this encounterAdena Pike Medical Center12-10-2024 NoteTrihealth [facility]12-09-2024 Telephone encounter Note* Telephone Encounter - Marcy Longoria - 05/25/2024 12:15 PM EST Spoke with spouse to schedule appt 06/22 [facility]12-09-2024 Miscellaneous Notes* Telephone Encounter - Marcy Longoria - 05/25/2024 12:15 PM EST Spoke with spouse to schedule appt 06/22 documented in this encounterCleveland [id number] Instructions* Patient Instructions* Louise Cesar MD - [...] and see Interventional Pulmonary in [facility] or [place]. Pleuroscopy could be considered but difficult after Angelique chest surgery (VATS pleurodesis) Next steps to do - see Interventional Pulmonary Dr. Riggs/Vicki with CT scan - stay tuned. Please check in if you don't hear anything in the next 2-[address] Reinaldo Cesar MD Pulmonary and Critical Care Medicine [facility] documented in this encounterAdena Pike Medical Center12-02-2024 History of Present illness Narrative* [...] PATIENT PRESENTS WITH AN IMPLANTABLE OR ATTACHED DRY CHAIN PULLER: No RADIOLOGY DEPARTMENT: General X-ray: Exam(s) Completed: Chest X-Ray PERIPHERAL IV DATA: Not applicable SIGNED BY: RT Rosaline(R) May 18, 2024 10:54 AM documented in this encounterAdena Pike Medical Center12-02-2024 NoteTrihealth [facility]12-02-2024 NoteTrihealth [facility]12-02-2024 History of Present illness Narrative* Louise Cesar MD - 05/18/2024 10:55 AM EST Images from the original note were not included. INTERVAL HPI: Willie is a gentleman in his 71s, from the [facility], here for follow-up for pleural effusion. [...] referred for pleurodesis to thoracic surgery in [facility], which he underwent inJune 2023. Though no pleural fluid analysis done, but pleural biopsy showed pleuritis. Post pleurodesis, he continued to have significant drainage, tunneled pleural catheter was placed. He was then hospitalized ( abdominal bloating ) -in [facility], and responded well to diuresis. He has [...] other day) -Rheumatologic assessment done, workup negative, superintendent oil well services has no evidence of any autoimmune disease -Off prednisone for the last 5 months -Off Plaquenil for the past 3 weeks -On diuretics, now on torsemide Interestingly, on further discussion, mostly with superintendent oil well services, we have uncovered that he has been [...] pleural effusion s/p R-VATS pleural biopsy, right instrument mechanics supervisor and doxycycline pleurodesis, right Pleurx catheter insertion, on 12/10/2023. Mr. Kumar presents with an interesting history. He is a semiretired gentleman from the [facility], with virtually no past medical history, [...] and he was referred to a local mineral industry teacher. He underwent thoracentesis several times, each time pleural fluid analysis showed exudative fluid. CT scan was obtained locally which did not reveal much except pleural effusion. CT scan also shows pericardial effusion. He was then referred by his local mineral industry teacher to [facility] for a pleurodesis. In November 2023, he underwent VATS pleurodesis (mechanical and doxycycline), with pleural biopsy, and the Pleurx catheter was also placed. Analysis of the pleural fluid and biopsies of the pleura showed acute and chronic pleuritis with organization, but no malignancy. We do not have pleural fluid chemical or hematological analysis done in [facility], but cytology was negative for malignant cells. He was discharged with Pleurx catheter, and and has been draining pleural fluid about 500 to 800 mLevery other day. And his dry cough has also been persistent. In December 2023, he was sent to [facility] after seeing thoracic surgery ADRIENNE for [...] He is scheduled to see rheumatology in [facility] in the next 2 weeks. [...] overload/CHF?, chronic cough - local PCP, has [facility] PCP, Dr. Flood (Thoracic), scheduled to see superintendent oil well services in 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 Outpatient Medications: calcium ksa-ahd-P3-Zn-microscopist-kian 250 mg-40 mg- 125 unit-3.75mg tab Take [...] taking: Reported on 05/18/2024) Pain today: Mr. aRymundo is not having pain related to the [...] personally reviewed by me Data Reviewed from [facility] (in addition to that noted in HPI, and Past histories above): CMP, CBC Testing data, personally reviewed and interpreted by me: PFT, Imaging, Labs, CVS data. Assessment: Sav Raymundo is a 74 year old male presents for evaluation/follow-up of: for chronic cough and recurrent right-sided pleural effusion s/p R-VATS pleural biopsy, right instrument mechanics supervisor and doxycycline pleurodesis, right Pleurx catheter insertion, [...] overload/CHF, chronic cough - local PCP, has [facility] PCP, Dr. Flood (Thoracic), scheduled to see superintendent oil well services in [facility] Social:Lives near [place], in own house, with , no pets, adult kids, just 1 daughter who lives in [place], 2 grand-kids, no lung disease in the [...] and see Interventional Pulmonary in [facility] or [place]. Pleuroscopy could be considered but difficult after November chest surgery (VATS pleurodesis) Sav Raymundo understands the plan and discussion and is comfortable with it. I spent a total of 45 minutes on the date of the service which included preparing to see the patient, nkwd-ys-xykn patient care, completing clinical documentation, obtaining and/or reviewing separately obtained history, performing a medically appropriate examination, counseling and educating the pat ient/family/caregiver, ordering medications, tests, or procedures, independently interpreting results (not separately reported), and care coordination (not separately reported). Louise Cesar MD documented in this encounterAdena Pike Medical Center11-27-2024 History of Present illness Narrative* [...] two times a day. 60 tablet 0 DLLMRFL-EHSNNCKGH-CJDV ORAL Take by mouth. iv contrast (will [...] 1 tablet by mouth once daily. calcium tim-nmo-L5-Zn-microscopist-kian 250 mg-40 mg- 125 unit-3.75mg tab Take [...] diaphragmatic excursion. Lungs clear to auscultation. Heart: [place] normal. Precordium quiet. RRR. Normal HS with [...] 2024 TIME: 11:13 AM documented in this encounterAdena Pike Medical Center11-21-2024 Telephone encounter Note * Telephone Encounter - Britney Hsu RN - 05/07/2024 7:29 PM EST . [facility]11-21-2024 Miscellaneous Notes* Telephone Encounter - Britney Hsu RN - 05/07/2024 7:29 PM EST . documented in this encounterAdena Pike Medical Center11-12-2024 History and physical note * [...] non-tender, no masses or organomegaly. Sedation Plan: [facility] Additional Comments: None Vic Ponce MD [facility]11-12-2024 History and physical note* Vic [...] None Vic Ponce MD documented in this encounterAdena Pike Medical Center11-12-2024 Nurse Note* Jahaira Hood RN [...] PROVIDED TO PATIENT: None REFERRAL (RECOMMENDATION): None [facility]11-12-2024 Nurse Note* Jahaira Hood RN [...] Signed By: Maureen Laughlin documented in this encounterAdena Pike Medical Center11-12-2024 Nurse Note* Maureen Laughlin RN [...] (RECOMMENDATION): None Electronically Signed By: Maureen Laughlin [facility]11-06-2024 History of Present illness Narrative* [...] this RN, 2 attempts by Tonya Wagner biomedical repair technician. Patient requests to try again [...] PATIENT PRESENTS WITH AN IMPLANTABLE OR ATTACHED DRY CHAIN PULLER: No RADIOLOGY DEPARTMENT: CT; Exam(s) Completed: Enterography PERIPHERAL IV DATA: Not applicable SIGNED BY: RT Tyree(R) April 22, 2024 11:55 AM documented in this encounterAdena Pike Medical Center11-06-2024 NoteTrihealth [facility]11-06-2024 NoteTrihealth [facility]11-05-2024 NoteCALPROTECTIN, FECAL INTERPBorderline elevated. Re-evaluation in 4-6 weeks is recommended if clinically indicated.(A)Dfqjtn5804/21/2024 9:04 PM ESTSumma Health Wadsworth - Rittman Medical CenterComment on above:Interpretation: <50.0 ug/g: Normal 50.0 ug/g - 120.0 ug/g: Borderline elevated. Re-evaluation in 4-6 weeks is recommended if clinically indicated. >120.0 ug/g: Elevated 04-20-2024 NoteBorderline elevated. Re-evaluation in 4-6 weeks is recommended if clinically indicated.[facility] HospitalComascension borgess allegan [facility] on above:Order Comment: Specimen Type: STOOL SPECIMENOrdering Facility: [facility] Address:[address] [place], [place] [address]Result Comment: Interpretation:<50.0 ug/g: Llkftl28.0 ug/g - 120.0 ug/g: Borderline elevated. Re-evaluation in 4-6 weeks is recommended if clinically indicated.>120.0 ug/g: ElevatedPerformed By: #### [id number], [id number], PANCEF ####[facility] LABCLIA [id number] [address] [address] [place] 04-20-2024 Instructions* Patient Instructions* Sue Murillo MD [...] am on dialysis? A: Please consult your chemist biological prior to scheduling to get instructions pertinent [...] to inadequate prep quality. documented in this encounterAdena Pike Medical Center11-04-2024 NoteTrihealth [facility]11-04-2024 History of Present illness Narrative* Sue Murillo MD - 04/20/2024 11:46 AM EST NAME: Sav Raymundo CLINIC NO: [id number] REASON FOR VISIT Sav Raymundo is a [...] Current Outpatient Medications Medication Sig Dispense Refill YKZCVNM-YEUHTZSUD-PIZE ORAL Take by mouth. iv contrast (will [...] 20, 2024 11:46 AM documented in this encounterAdena Pike Medical Center10-15-2024 NoteTrihealth [facility]10-15-2024 History of Present illness Narrative* Steffen Mccarty MD - 03/31/2024 4:33 PM EDT Images from the original note were not included. Rheumatology CONSULTATION Date of Service: 03/30/2024 Patient: Sav Raymundo Medical Record: [id number] Primary Care Physician: Yuli Mariscal DO Last Rheumatology visit: 03/30/2024 (with Steffen Villa) Referring Provider: Tita Landry [address] [facility] [address] Sav Raymundo is here today at request of Dr. Landry, Tita, [facility] specifically for consultation of my opinion in regards to the chief complaint listed below. Correspondence will be sharedtoday via the [employer] electronic health record or through regular mail, [...] PMHx except for bilateral knee replacements and [place] fracture s/p surgery who presents for evaluation [...] underwent on 11/20/2023 R VATS with R instrument mechanics supervisor and doxyxyclyine pleurodesis, pleural biopsy. Biopsy notable [...] Current Medications Current Outpatient Medications Medication Sig LAXCKPB-DHQBRFFRA-SZSA ORAL Take by mouth. 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 Qualitative Negative Negative Chromatin Ab <1.0 AI <0.2 Chromatin Ab Qual Negative Negative SSA Antibody Qual Negative Negative Anti-SSA <1.0 AI <0.2 Anti-SSB <1.0 AI <0.2 RESIDENTIAL DOOR UNIT INSTALLER Antibody QUAL Negative Negative Scleroderma Ab Qual [...] on 03/30/2024 Name Date COVID-19 vaccine, monovalent ([employer]) 09/13/2020, 08/22/2020, 08/15/2020 influenza (aIIV3) vaccine 05/09/2020 [...] which included preparing to see the patient, yuxp-jv-uiix patient care, completing clinical documentation, obtaining and/or reviewing separately obtained history, performing a medically appropriate examination, and counseling and educating the patient/family/caregiver. Steffen Villa MD Rheumatology Date: March 31, 2024 Time: 4:33 PM documented in this encounterAdena Pike Medical Center10-01-2024 History of Present illness Narrative* [...] PATIENT PRESENTS WITH AN IMPLANTABLE OR ATTACHED DRY CHAIN PULLER: No ALLERGIES: Reviewed and unchanged CONTRAST ALLERGY: [...] DEPARTMENT: CT; Exam(s) Completed: Chest SIGNATURE: RT Solitario(Sandee) PATIENT NAME: Sav Raymundo DATE: March 17, 2024 TIME: 4:04 PM documented in this encounterAdena Pike Medical Center10-01-2024 NoteHNO ID: [id number] Author: JUAN SON RT(R) Service: Radiology Author Type: Ingot Buggy Operator Type: Progress Notes Filed: 03/17/2024 16:04 Note [...] PATIENT PRESENTS WITH AN IMPLANTABLE OR ATTACHED DRY CHAIN PULLER: No ALLERGIES: Reviewed and unchanged CONTRAST ALLERGY: [...] RADIOLOGY DEPARTMENT: CT; Exam(s) Completed: Chest SIGNATURE: Juan Son, RT(R) PATIENT NAME: Sav Raymundo DATE: March 17, 2024 TIME: 4:04 [id number] History of Present illness Narrative* Ruma Oshea PA-C - 03/17/2024 1:30 PM EDT Images from the original note were not included. [facility] - OUTPATIENT THORACIC SURGERY CLINIC NOTE PT NAME: Sav Raymundo [facility] NO: [id number] THORACIC SURGEON: Ronaldo Flood M.D. 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 He was hospitalized 12/20/23 for anasarca, possible autoimmune disease, recurrent pleural effusion. Imaging did not reveal any acute findings. Patient was admitted to [facility] and started on lasix drip, improving anasarca and pleural effusion. Pleurx catheter was drained daily with significantly decreasing output [phone]. He was worked up for an autoimmune [...] to clinic today for postoperative visit. 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 Folod. He was hospitalized 12/20/23 for anasarca, possible autoimmune disease, and recurrent pleural effusion. Imaging did not reveal any acute findings. Patient was admitted to [facility] and started on lasix drip, with improving anasarca and pleural effusion. Pleurx catheter was drained daily with significantly decreasing output [phone]. He was worked up for an autoimmune disease as well. He was discharged on an increased dose of lasix (20mg > 80mg) and started on Plaquenil. PLAN: - continue draining pleurx every 3 days - call our office if any new or worsening symptoms - follow up with [employer] oil well services 04/13 for their recommendations - discussed with patient to reach out to our office with rheum recommendations, as well as if pleurx output has significantly decreased to discuss removing pleurx Ruma Oshea PA-C documented in this encounterAdena Pike Medical Center10-01-2024 NoteHNO ID: [id number] Author: RUMA OSHEA PA-C Service: ? Author Type: Physician Eap Specialist Type: Progress Notes Filed: 03/17/2024 14:26 Note Text: [facility] - OUTPATIENT THORACIC SURGERY CLINIC NOTE PT NAME: Sav Raymundo [facility] NO: [id number] THORACIC SURGEON: Ronaldo Flood M.D. 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 Right pleura, biopsy: - Chronic pleuritis with mesothelial hyperplasia (see comment). B. Right pleura, biopsy: - Acute organizing and chronic pleuritis (see comment). TX/ 11/22/2023 Diagnosis Comment A. 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 He was hospitalized 12/20/23 for anasarca, possible autoimmune disease, recurrent pleural effusion. Imaging did not reveal any acute findings. Patient was admitted to [facility] and started on lasix drip, improving anasarca and pleural effusion. Pleurx catheter was drained daily with significantly decreasing [phone]. He was worked up for an autoimmune [...] to clinic today for postoperative visit. [facility] RN called in 03/03 reporting increase in output from pleurX. Drainage schedule at that time was switchde to 3x weekly until output slows down. Prednisone course finished, plaquenil increased to BID. Patient with increase in weight and 2+ pitting BLE. Seen by pulmonary today, follow up with rheum 04/13. Patient notes today (more content not included)...[facility] 03-17-2024 History of Present illness Narrative* Bryn Pride, BOWL SANDER - 03/17/2024 1:29 PM EDT PULM FUNCTION: Provider: Louise Cesar MD DLCO: 1 LV - Box: 1 documented in this encounterAdena Pike Medical Center10-01-2024 Instructions* Patient Instructions* Louise Cesar [...] Cesar MD Pulmonary and Critical Care Medicine [facility] documented in this encounterAdena Pike Medical Center10-01-2024 NoteHNO ID: [id number] Author: LOUISE CESAR MD Service: ? Author Type: Physician Type: Progress Notes Filed: 03/18/2024 08:55 Note Text: Mr. Raymundo is a 74 year old male who [facility] [place]. Consultation requested by Dr. Hopper and Dr. Ronaldo Flood. My final recommendations/evaluation will be communicated back to the requesting physician by way of shared medical record or letter via [place] mail. This note was partially created using [employer] Voice recognition software and is inherently subject to errors including those of syntax and ?sound-alike? substitutions which may escape proofreading. In such instances, original meaning may be extrapolated by contextual derivation. 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 Mr. Kumar presents with an interesting history. He is a semiretired gentleman from the [facility], with virtually no past medical history, [...] and he was referred to a local mineral industry teacher. He underwent thoracentesis several times, each time pleural fluid analysis showed exudative fluid. CT scan was obtained locally which did not reveal much except pleural effusion. CT scan also shows pericardial effusion. He was then referred by his local mineral industry teacher to [facility] for a pleurodesis. In November 2023, he underwent VATS pleurodesis (mechanical and doxycycline), with pleural biopsy, and the Pleurx catheter was also placed. Analysis of the pleural fluid and biopsies of the pleura showed acute and chronic pleuritis with organization, but no malignancy. We do not have pleural fluid chemical or hematological analysis done in [facility], but cytology was negative for malignant cells. He was discharged with Pleurx catheter, and and has been draining pleural fluid about 500 to 800 mL every other day. And his dry cough has also been persistent. In December 2023, he was sent to [facility] after seeing thoracic surgery ADRIENNE for [...] He is scheduled to see rheumatology in [facility] in the next 2 weeks. [...] a history of c (more content not included)...[facility]10-01-2024 History of Present illness Narrative* Louise Cesar MD - 03/17/2024 10:46 AM EDT Images from the original note were not included. Mr. Raymundo is a 74 year old male who [facility] [place]. Consultation requested by Dr. Hopper and Dr. Ronaldo Flood. My final recommendations/evaluation will be communicated back to the requesting physician by way of shared medical record or letter via [place] mail. This note was partially created using [employer] Voice recognition software and is inherently subject to errors including those of syntax and sound-alike substitutions which may escape proofreading.In such instances, original meaning may be extrapolated by contextual derivation. 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 Mr. Kumar presents with an interesting history. He is a semiretired gentleman from the [facility], with virtually no past medical history, [...] and he was referred to a local mineral industry teacher. He underwent thoracentesis several times, each time pleural fluid analysis showed exudative fluid. CT scan was obtained locally which did not reveal much except pleural effusion. CT scan also shows pericardial effusion. He was then referred by his local mineral industry teacher to [facility] for a pleurodesis. In November 2023, he underwent VATS pleurodesis (mechanical and doxycycline), with pleural biopsy, and the Pleurx catheter was also placed. Analysis of the pleural fluid and biopsies of the pleura showed acute and chronic pleuritis with organization, but no malignancy. We do not have pleural fluid chemical or hematological analysis done in [facility], but cytology was negative for malignant cells. He was discharged with Pleurx catheter, and and has been draining pleural fluid about 500 to 800 mLevery other day. And his dry cough has also been persistent. In December 2023, he was sent to [facility] after seeing thoracic surgery ADRIENNE for [...] He is scheduled to see rheumatology in [facility] in the next 2 weeks. [...] overload/CHF?, chronic cough - local PCP, has [facility] PCP, Dr. Flood (Thoracic), scheduled to see superintendent oil well services in [facility] [place] Social:Lives near [place], in own house, with , no pets, adult kids, just 1 daughter who lives in [place], 2 grand-kids, no lung disease in the [...] Onset Heart Father Allergies: Tramadol Outpatient Medications: [id number] ORAL Take by mouth. diclofenac (VOLTAREN) 1 [...] personally reviewed by me Data Reviewed from [facility] (in addition to that noted in HPI, and Past histories above): CMP, CBC Testing data, personally reviewed and interpreted by me: PFT, Imaging, Labs, CVS data. 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 Flood (Thoracic), scheduled to see superintendent oil well services in [facility] [place] Social:Lives near [place], in own house, with , no pets, adult kids, just 1 daughter who lives in [place], 2 grand-kids, no lung disease in the [...] which included preparing to see the patient, [id number] patient care, completing clinical documentation, obtaining and/or reviewing separately obtained history, performing a medically appropriate examination, counseling and educating the pat ient/family/caregiver, ordering medications, tests, or procedures, independently interpreting results (not separately reported), and care coordination (not separately reported). Louise Cesar MD documented in this encounterAdena Pike Medical Center10-01-2024 Nurse Note* Jacqueline García RN - 03/17/2024 10:17 AM EDT Sav Raymundo is a very pleasant 74 year old male who presents today for pleural effusion (November 19), still has chest drainage tube Pleurex tube After surgery, fluid still gathering around right lung. Last seen by Pulmonary Doctor? Dr. Clemente in [facility]. Outside of [facility]. Is Dr. Cesar on Care Team as Government Instructor? no Meds reviewed - Refills pended?no Since last seen Have you had any resp illnessses, COVID, exacerbations or recent visits to ER?hospital/Urgent-Care? [place] December 19 x 1 week, Vaccines: Immunization History Administered Date(s) Administered COVID-19 original vaccine, age 12+ yr, monovalent ([employer] [facility] - PURPLE TOP) 08/15/2020 08/22/2020 09/13/2020 05/10/2021 influenza (aIIV3) vaccine, age 65+ yr, trivalent, PF (FLUAD) 05/09/2020 pneumococcal conjugate (PCV13) vaccine, 13 valent (PREVNAR 13) 11/26/2016 pneumococcal polysaccharide (PPV23) vaccine, 23 valent (PNEUMOVAX 23) 02/03/2018 tetanus diphtheria (Td) vaccine, age 7+ yr, 5 Lf tetanus, PF (TENIVAC) 06/04/2018 08/30/2018 zoster (RZV) vaccine, recombinant (SHINGRIX) 08/30/2018 Modified [employer] [place] Dyspnea Scale (MMRC) I stop for breath after walking about 100 yards or after a few minutes on level ground 3 Patient Entered Questionnaires 10/23/2023 PROMIS Global Health - (T-Scores - the mean of general population = 50. Five points is a clinicallymeaningful difference.) Physical T-Score 44.9 Mental T-Score 43.5 [facility]10-01-[facility] Nurse Note* Jacqueline García RN - 03/17/2024 10:17 AM EDT Sav Raymundo is a very pleasant 74 year old male who presents today for pleural effusion (November 19), still has chest drainage tube Pleurex tube After surgery, fluid still gathering around right lung. Last seen by Pulmonary Doctor? Dr. Clemente in [facility]. [facility] of [facility]. Is Dr. Cesar on Care Team as Government Instructor? no Meds reviewed - Refills pended?no Since last seen Have you had any resp illnessses, COVID, exacerbations or recent visits to ER?hospital/Urgent-Care? [place] December 19 x 1 week, Vaccines: Immunization History Administered Date(s) Administered COVID-19 original vaccine, age 12+ yr, monovalent ([employer] - PURPLE TOP) 08/15/2020 08/22/2020 09/13/2020 05/10/2021 influenza (aIIV3) vaccine, age 65+ yr, trivalent, PF (FLUAD) 05/09/2020 pneumococcal conjugate (PCV13) vaccine, 13 valent (PREVNAR 13) 11/26/2016 pneumococcal polysaccharide (PPV23) vaccine, 23 valent (PNEUMOVAX 23) 02/03/2018 tetanus diphtheria (Td) vaccine, age 7+ yr, 5 Lf tetanus, PF (TENIVA) 06/04/2018 08/30/2018 zoster (RZV) vaccine, recombinant (SHINGRIX) 08/30/2018 Modified [employer] [place] Dyspnea Scale (MMRC) I stop for breath after walking about 100 yards or after a few minutes on level ground 3 Patient Entered Questionnaires 10/23/2023 PROMIS Global Health - (T-Scores - the mean of general population = 50. Five points is a clinicallymeaningful difference.) Physical T-Score 44.9 Mental T-Score 43.5 documented in this encounterAdena Pike Medical Center10-01-2024 History of Present illness Narrative* [...] PATIENT PRESENTS WITH AN IMPLANTABLE OR ATTACHED DRY CHAIN PULLER: N/A RADIOLOGY DEPARTMENT: General X-ray: Exam(s) Completed: Chest X-Ray PERIPHERAL IV DATA: Not applicable SIGNED BY: Lilia DUTTAR) March 17, 2024 8:38 AM documented in this encounterAdena Pike Medical Center10-01-2024 NoteHNO ID: [id number] Author: ALAN DELGADO RT(R) Service: Radiology Author [...] PATIENT PRESENTS WITH AN IMPLANTABLE OR ATTACHED DRY CHAIN PULLER: N/A RADIOLOGY DEPARTMENT: General X-ray: Exam(s) Completed: Chest X-Ray PERIPHERAL IV DATA: Not applicable SIGNED BY: Lilia Pope RT(R) March 17, 2024 8:38 [facility]10-01-2024 NoteHNO ID: [id number] Author: [place] RRT Service: ? Author Type: Registered Resp Therapist Type: Progress Notes Filed: 03/17/2024 08:16 Note Text: PULM FUNCTION: Provider: Katerina Bravo APRN.CNP Spirometry: 1 Exhaled Nitric Oxide: [address] [place], [place] [address]110-01-2024 History of Present illness Narrative* [place] RRT - 03/17/2024 8:16 AM EDT PULM FUNCTION: Provider: Katerina Bravo APRN.UNIVERSITY SERVICES PROGRAM ASSOCIATE Spirometry: 1 Exhaled Nitric Oxide: 1 documented in this encounterAdena Pike Medical Center10-01-2024 NoteHNO ID: [id number] Author: [place] RRT Service: ? Author [...] Raymundo DATE: March 17, 2024 TIME: 8:16 [facility]10-01-2024 Procedure note* [place] RRT - [...] DATE: March 17, 2024 TIME: 8:16 AM [facility]10-01-[facility] Procedure note* [place] RRT [...] 2024 TIME: 8:16 AM documented in this encounterAdena Pike Medical Center09-17-2024 Telephone encounter Note * Telephone Encounter - Bryn Lorenzana RN - 03/03/2024 10:55 AM EDT Images from the original note were not included. [facility] [place] Phone Encounter DATE of SERVICE: 03/03/2024 TIME of SERVICE: 10:56 AM Status: [facility] Service/Provider: Thoracic Surgery Ronaldo Flood M.D. Reason for call: Other Issue Contact information: [phone] Resolution: Sent to [facility] Comments: Please call [facility] EVAN Campos back at [phone]. Bryn Lorenzana RN Date of Resolution: 03/03/2024 Time of Resolution 10:56 AM [facility]09-17-[facility] Miscellaneous Notes* Telephone Encounter - Bryn Lorenzana RN - 03/03/2024 10:55 AM EDT Images from the original note were not included. [facility] [place] Phone Encounter DATE of SERVICE: 03/03/2024 TIME of SERVICE: 10:56 AM Status: [facility] Service/Provider: Thoracic Surgery Ronaldo Flood M.D. Reason for call: Other Issue Contact information: [phone] [facility] Comments: Please call [facility] EVAN Campos back at [phone]. Bryn Lorenzana RN Date of Resolution: 03/03/2024 Time of Resolution 10:56 AM documented in this encounterAdena Pike Medical Center09-17-2024 Telephone encounter Note * Telephone Encounter - Bryn Lorenzana RN - 03/03/2024 10:50 AM EDT Beth [facility] called back. Please give call when able. [facility]09-17-[facility] Miscellaneous Notes* Telephone Encounter - Bryn Lorenzana RN - 03/03/2024 10:50 AM EDT Beth [facility] called back. Please give call when able. * Telephone Encounter - Tita Landry APRN.CNP - 03/03/2024 10:46 AM EDT Returned [facility] Beth GORDON's phone call. States patient's [...] Dr. Hopper's office to update him. Instructed [facility] RN to increase draining to three times weekly until output slows back down. Instructed to have patient call Dr. Hopper's office to schedule an appointment for evaluation of worsening edema and weight gain. Tita Landry APRN.CNP 03/03/2024 10:46 AM * Telephone Encounter - Sherie Payne RN - 03/03/2024 9:54 AM EDT Beth from [facility] [phone] She wanted to speak with Tita Rodriguez CNP. documented in this encounterAdena Pike Medical Center09-17-2024 Telephone encounter Note * Telephone Encounter - Tita Landry APRN.CNP - 03/03/2024 10:46 AM EDT Returned [facility] RNBeth's phone call. States patient's pleurx output is [...] Dr. Hopper's office to update him. Instructed [facility] RN to increase draining to three times weekly until output slows back down. Instructed to have patient call Dr. Hopper's office to schedule an appointment for evaluation of worsening edema and weight gain. Tita Landry APRN.CNP 03/03/2024 10:46 AM [facility]09-17-[facility] Telephone encounter Note* Telephone Encounter - Sherie Payne RN - 03/03/2024 9:54 AM EDT Beth from [facility] [phone] She wanted to speak with Tita Rodriguez CNP. [facility]09-06-[facility] Telephone encounter Note* Telephone Encounter - Patricia Bermudez RN - 02/21/2024 10:14 AM EDT spoke with [facility] aCmpos , pt notes he has some internal discomfort randomly since Saturday. and want to send updates on this [...] drain pleurex at home on their own) [phone] [facility] RN. will review updates above with UNIVERSITY SERVICES PROGRAM ASSOCIATE/MD and await any updates appt with dorita and margaret 03/17 and mamta 04/13 for followup Patricia Bermudez RN [facility]09-06-2024 Miscellaneous Notes* Telephone Encounter - Patricia Bermudez RN - 02/21/2024 10:14 AM EDT spoke with [facility] EVAN Campos , pt notes he has some internal discomfort randomly since Saturday. and want to send updates on this [...] pleurex at home on their own) PH [phone] [facility] RN. will review updates above with CURT/ and await any updates appt with dorita and margaret 03/17 and mamta 04/13 for followup Patricia Bermudez RN documented in this encounterAdena Pike Medical Center08-28-2024 History of Present illness Narrative* [...] times a day. 270 tablet0 calcium carbonate (OS-ELIZABETH 500) 500 mg calcium [...] excursion. Lungs clear to auscultation.+Pleurax catheter Heart: [place] normal. Precordium quiet. RRR. Normal HS with [...] 200 MG TABLET - Will see a superintendent oil well services on 04/13/2024 2. Primary hypertension - ICD9: [...] 2024 TIME: 11:22 AM documented in this encounterAdena Pike Medical Center08-27-2024 History of Present illness Narrative* [...] ANESTH OPEN/SURG ARTHRS TOTAL KNEE ARTHROPLASTY; Left 2010: ARTHROSCOPY KNEE DIAGNOSTIC W/WO SYNOVIAL BX SPX; [...] times a day. 270 tablet0 calcium carbonate (OS-ELIZABETH 500) 500 mg calcium [...] has no purpura and a negative Rumpel Davenport sign. Pupils are equal at 2 mm [...] reviewing the medication list, performing clinical documentation, tsea-op-vkmw history, the examination, counseling the patient, ordering medications, tests or procedures and communicating the results to this patient. An opportunity for this individual to ask questions was provided. Understanding of the information given, the conclusions of this visit and my recommendations were acknowledged by Mr. Raymundo. Yehuda Dial MD documented in this encounterAdena Pike Medical Center08-20-2024 NoteHNO ID: [id number] Author: TITA LANDRY APRN.UNIVERSITY SERVICES PROGRAM ASSOCIATE Service: ? Author Type: Nurse Practitioner Type: Progress Notes Filed: 02/05/2024 16:19 Note Text: [facility] [place] DEPARTMENT OF THORACIC SURGERY OUTPATIENT VISIT DATE February 04, 2024 OUTPATIENT VISIT TYPE ESTABLISHED PT NAME: Sav Cantu [facility] NO: [id number] THORACIC SURGEON: Ronaldo Flood M.D. 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 Right pleura, biopsy: - Chronic pleuritis with mesothelial hyperplasia (see comment). B. Right pleura, biopsy: - Acute organizing and chronic pleuritis (see comment). [place]/ 11/22/2023 Diagnosis Comment A. 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 He was hospitalized 12/20/23 for anasarca, possible autoimmune disease, recurrent pleural effusion. Imaging did not reveal any acute findings. Patient was admitted to [facility] and started on lasix drip, improving anasarca and pleural effusion. Pleurx catheter was drained daily with significantly decreasing [id number]. He was worked up for an autoimmune [...] denies any fevers, chills, (more content not included)...[facility] 02-04-2024 History of Present illness Narrative* Tita Landry APRN.UNIVERSITY SERVICES PROGRAM ASSOCIATE - 02/04/2024 1:28 PM EDT Heart, Vascular and Thoracic [place] DEPARTMENT OF THORACIC SURGERY OUTPATIENT VISIT DATE February 04, 2024 OUTPATIENT VISIT TYPE ESTABLISHED PT NAME: Sav Raymundo CLINIC NO: [id number] THORACIC SURGEON: Ronaldo Flood M.D. 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 He was hospitalized 12/20/23 for anasarca, possible autoimmune disease, recurrent pleural effusion. Imaging did not reveal any acute findings. Patient was admitted to [facility] and started on lasix drip, improving anasarca and pleural effusion. Pleurx catheter was drained daily with significantly decreasing output [phone]. He was worked up for an autoimmune [...] He is scheduled to see PCP and Mold Maintenance Technician next week. He has followed-up with local Government Instructor, and was referred to Government Instructor at [facility], which is scheduled on 03/17 with spirometry. Right pleurx drainage has significantly decreased since last visit; now less than 350cc/drainage every MWF. Right pleurx catheter with 150 cc of awilda drainage out in clinic today. 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 Flood. He was hospitalized 12/20/23 for anasarca, possible autoimmune disease, and recurrent pleural effusion. Imaging did not reveal any acute findings. Patient was admitted to [facility] and started on lasix drip, with improving anasarca and pleural effusion. Pleurx catheter was drained daily with significantly decreasing output [phone]. He was worked up for an autoimmune [...] documented/adjusted. Tita Landry APRN.CURT documented in this encounterAdena Pike [facility]08-05-[facility]24 Telephone encounter Note * Telephone Encounter - Jahaira Wood - 01/20/2024 3:35 PM EDT Received Pulmonary office note 7/31/24 from [facility] Record scanned in Epic Jahaira Wood, hotel administrative assistant [facility]08-05-2024 Miscellaneous Notes* Telephone Encounter - Jahaira Wood - 01/20/2024 3:35 PM EDT Received Pulmonary office note 01/15/24 from [facility] Record scanned in Epic Jahaira Wood, hotel administrative assistant documented in this encounterAdena Pike Medical Center07-31-2024 History of Present illness Narrative* [...] excursion. Lungs decreased BS in bases Heart: [place] normal. Precordium quiet. RRR. Normal HS with [...] 2024 TIME: 12:34 PM documented in this encounterAdena Pike Medical Center07-22-2024 History of Present illness Narrative* Yehuda Dial MD - 01/06/2024 5:01 PM EDT SUBJECTIVE: The chief complaint is right pleural effusion Mr. Raymundo relates that the visiting nurse comes to his house and drains 500 to 1000+ cc of pleural fluid every 2 days. He is concerned about taking a vacation to [place] for that reason. In addition, he complains [...] reviewing the medication list, performing clinical documentation, [id number] history, the examination, counseling the patient, ordering medications, tests or procedures and communicating the results to this patient. An opportunity for this individual to ask questions was provided. Understanding of the information given, the conclusions of this visit and my recommendations were acknowledged by Mr. Raymundo. Yehuda Dial MD documented in this encounterAdena Pike Medical Center07-22-2024 History of Present illness Narrative* Katerina Bravo APRN.UNIVERSITY SERVICES PROGRAM ASSOCIATE - 01/06/2024 3:53 PM EDT Dear Ruma Oshea PA-C, Thank you for the referral of Sav Raymundo for evaluation. Chronic Cough E-consult - Chart Reviewed. Chronic Cough: x 04/2024 History of prior Pulm evaluation: yes; Dr. Clemente with [facility] Prior PFTs: unable to locate Prior [...] locate. 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 Please arrange the following testing to be done prior to visit: Spirometry with dilator if obstructed Nitric Oxide Katerina Bravo APRN Pulmonary Medicine 01/06/2024 documented in this encounterAdena Pike Medical Center07-22-2024 History of Present illness Narrative* Ruma Oshea PA-C - 01/06/2024 2:00 PM EDT Images from the original note were not included. [facility] - OUTPATIENT THORACIC SURGERY CLINIC NOTE PT NAME: Sav Raymundo [facility] NO: [id number] THORACIC SURGEON: Ronaldo Flood M.D. 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 Patient was admitted to [facility] and started on lasix drip, improving anasarca and pleural effusion. Pleurx catheter was drained daily with significantly decreasing output [phone]. He was worked up for an autoimmune [...] clinic. Patient does have follow up with superintendent oil well services today and mineral industry teacher next week. Will fax over recent medical information to mineral industry teacher. 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 PLAN: - follow up with APPRENTICESHIP TRAINING REPRESENTATIVE in 4 weeks with CXR; sooner if experiencing new or worsening symptoms - continue to drain pleurx every other day / when symptomatic - follow up with mineral industry teacher Dr. Clemente - referral placed for chronic cough clinic - will send over OR report, pathology report, recent hospital discharge, recent CXR report, and today's clinic note to mineral industry teacher Dr. Bryn Oshea PA-C documented in this encounterAdena Pike Medical Center07-22-2024 NoteHNO ID: [id number] Author: RUMA OSHEA PA-C Service: ? Author Type: Physician Eap Specialist Type: Progress Notes Filed: 01/06/2024 14:58 Note Text: [facility] - OUTPATIENT THORACIC SURGERY CLINIC NOTE PT NAME: Sav Cantu [facility] NO: [id number] THORACIC SURGEON: Ronaldo Flood M.D. 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 Patient was admitted to [facility] and started on lasix drip, improving anasarca and pleural effusion. Pleurx catheter was drained daily with significantly decreasing output [phone]. He was worked up for an autoimmune [...] clinic. Patient does have follow up with superintendent oil well services today and mineral industry teacher next week. Will fax over recent medical information to mineral industry teacher. 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 Flood. Patient overall doing well from a clinical standpoint. CXR from today is still pendin (more content not included)...[facility]07-22-2024 History of Present illness Narrative* Sherie Carrion [...] PATIENT PRESENTS WITH AN IMPLANTABLE OR ATTACHED DRY CHAIN PULLER: No RADIOLOGY DEPARTMENT: General X-ray: Exam(s) Completed: Chest X-Ray PERIPHERAL IV DATA: Not applicable SIGNED BY: RT Abbi(Sandee) January 06, 2024 1:08 PM documented in this encounterAdena Pike Medical Center07-22-2024 NoteHNO ID: [id number] Author: SHERIE CARRION RT(R) Service: Radiology Author [...] PATIENT PRESENTS WITH AN IMPLANTABLE OR ATTACHED DRY CHAIN PULLER: No RADIOLOGY DEPARTMENT: General X-ray: Exam(s) Completed: Chest X-Ray PERIPHERAL IV DATA: Not applicable SIGNED BY: Sherie Carrion, RT(R) January 06, 2024 1:08 PMBrigham And [facility]07-[facility]-2024 NoteHNO ID: [id number] Author: LUPE BAUER RN Service: Care Management [...] the inter-professional team: Yes Name of Caregiver: [facility] Transportation Arrangements Transportation Arrangements: Car Discharge Information Row Name ED to Hosp-Admission (Current) from 12/20/[address] Care Agency [facility] Start of Care -- agency will contact patient Spouse at bedside to transport home. DC arrangements confirmed with patient, spouse, [facility], and bedside nurse. 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 Nuclear Med Report: [id number] PLANAR and SPECT: Myocardial imaging of the chest with CT attenuation correction was performed at 3 hours post IV injection of Tc-99m Pyrophosphate. See administered doses below. 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 CT Dose R (more content not included)...[facility]07-10-2024 NoteHNO ID: [id number] Author: RAFIA TOVAR RT(R) Service: Nuclear Medicine [...] PATIENT PRESENTS WITH AN IMPLANTABLE OR ATTACHED DRY CHAIN PULLER: No CREATININE: Creatinine Date Value Ref Range [...] safety can be found using this link: [email or web address]%[email or web address] SIGNATURE: RT Seema(R) PATIENT NAME: Sav Raymundo DATE: December 25, 2023 TIME: 11:01 AM PAGER/CONTACT #:[facility]07-09-2024 NoteHNO ID: [id number] Author: JOSE ANTONIO HOPPER MD Service: Family [...] input SUBJECTIVE CHIEF COMPLAINT: None PRIMARY SERVICE: [facility] Practice OBJECTIVE PHYSICAL EXAM: Patient Vitals [...] MD DATE: December 24, 2023 TIME: 8:05 [facility]07-08-2024 NoteHNO ID: [id number] Author: JOSE ANTONIO HOPPER MD Service: Family [...] MD DATE: December 23, 2023 TIME: 4:11 PMBrigham And [facility]07-08-2024 NoteHNO ID: [id number] Author: LUPE BAUER RN Service: Care Management [...] with his spouse. He is active with [facility] for senior care and pleurx supplies. Plan home with resumption of HHC. Will need home care orders for SN prior to discharge. CM following. SIGNATURE: Lupe Bauer RN PATIENT NAME: Sav Raymundo DATE: December 23, 2023 TIME: 2:04 PM PAGER/CONTACT #: [phone] NoteHNO ID: [id number] Author: RUMA OSHEA PA-C Service: Thoracic Surgery Author Type: Physician Eap Specialist Type: Plan of Care Filed: 12/23/2023 07:53 Note Text: PLEASE PAGE [phone] WITH SURGICAL QUESTIONS OR CONCERNS. (This includes issues with chest tubes, surgical drains, feeding tubes, incisions or changes in clinical status). Thoracic Surgery - Plan of Care HPI: Sav Raymundo is a 73 y/o male referred by Alpa Oliva CNP for an opinion regarding management of recurrent right pleural effusion. 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, right Pleurx catheter insertion [...] Dwight Oshea PA-C 12/23/2023 7:48 AM PAGER [phone] And Women'S [facility]07-07-2024 NoteHNO ID: [id number] Author: JOSE ANTONIO HOPPER MD Service: Family [...] pain especially on changing position PRIMARY SERVICE: [facility] Practice OBJECTIVE PHYSICAL EXAM: Patient Vitals [...] visit: Most recent labs CBC: Recent Labs 12/22/2318 WBC 5.83 RBC 4.29 HB 12.7* HCT 39.3 PLT 250 MCV 91.6 MCH 29.6 MPV 10.2 CMP: Recent Labs 12/22/2318 12/21/23 1156 NA 139 138 K 3.3* 3.9 CHLOR 99 106 CO2 24 19* BUN 12 12 CREAT 0.98 0.86 GLUC 109* 115* TPROT -- 6.4 CA 9.0 8.7 MG 1.6* -- TBILI -- 0.8 ALKPHOS -- 100 ALT -- 11 AST -- 18 ANION 16* 13 SIGNATURE: Jose Antonio Hopper MD DATE: December 22, 2023 TIME: 11:01 [facility]07-06-2024 NoteHNO ID: [id number] Author: TRACY ROBLES LSW Service: Care Management Author Type: Military Lawyer Type: Care Mgt Initial Assessment Filed: 12/21/2023 13:04 Note Text: CARE MANAGEMENT: ASSESSMENT AND DISCHARGE PLAN SERVICE DATE: December 21, 2023 SERVICE TIME: 1:02 PM PCP: Yuli Mariscal DO Primary Contact: Extended Emergency Contact Information Primary Emergency Contact: Jennifer RaymundoHCPKAYLEN New Address: [address] [place] [address] [place] [address] [facility] Mobile Relation: Spouse Secondary Emergency Contact: Breanne(1st alt HCPOADeysi Espino Address: [address] [place] [id number] Mobile Relation: Brother Admission Status: Inpatient Insurance Provider: [employer] MEDICARE PPO Discharge Planning requested by: Per Department Practice Potential Transition Plans To Be Determined;Home Care Advance Directives Current Advance Directive: Health Care Power of Car Varnisher;Living Will In Chart: Yes Current Living Arrangements and Support Lives with: Spouse/significant other Type of Residence: Support: How do you manage to accomplish the following: Independent: Ambulation Current Services/Equipment Current Post-Acute Service(s): Skilled Home Care Discharge Planning Patient Goal(s): Be able to go home, General wellness Becket of Choice Explained: Becket of Choice Given: Yes Level of Care [...] from home with her. Patient active with [facility]- provides PE supplies- referral placed. Spouse aware floor to follow for dc needs NEED [facility] ORDER. SIGNATURE: BERTA Benson PATIENT NAME: Sav Raymundo DATE: December 21, 2023 TIME: 1:02 PM CONTACT #: .[facility]07-05-2024 NoteHNO ID: [id number] Author: TITA LANDRY APRN.UNIVERSITY SERVICES PROGRAM ASSOCIATE Service: ? Author Type: Nurse Practitioner Type: Progress Notes Filed: 01/19/2024 21:56 Note Text: Heart, Vascular and Thoracic [place] DEPARTMENT OF THORACIC SURGERY OUTPATIENT VISIT DATE December 20, 2023 OUTPATIENT VISIT TYPE ESTABLISHED PT NAME: Sav Cantu Breanne CLINIC NO: [id number] THORACIC SURGEON: Ronaldo Flood M.D. 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 Tita Landry APRN.CURT documented in this encounterAdena Pike Medical Center07-02-2024 Miscellaneous Notes* Telephone Encounter - Pearl Lopez I, RN - 12/17/2023 9:39 AM EDT Images from the original note were not included. [facility] Phone Encounter DATE of SERVICE: 12/17/2023 TIME of SERVICE: 9:39 AM Status: Non-urgent, needs attention Service/Provider: Thoracic Surgery Ronaldo Flood M.D. Reason for call: Other Issue Contact information: [phone] Resolution: Sent to [facility] Comments: Received call from [facility] Nurse. States she saw patient yesterday. [...] he can wait to be seen thisfriday. [facility] will be there tomorrow. Please advise if any further recommendations Pearl Lopez RN Date of Resolution: 12/17/2023 Time of Resolution 9:39 AM documented in this encounterAdena Pike Medical Center07-02-2024 Telephone encounter Note * Telephone Encounter - Pearl Lopez I, RN - 12/17/2023 9:39 AM EDT Images from the original note were not included. [facility] Phone Encounter DATE of SERVICE: 12/17/2023 TIME of SERVICE: 9:39 AM Status: Non-urgent, needs attention Service/Provider: Thoracic Surgery Ronaldo Flood M.D. Reason for call: Other Issue Contact information: [phone] Resolution: Sent to [facility] Comments: Received call from [facility] Nurse. States she saw patient yesterday. [...] he can wait to be seen thisfriday. [facility] will be there tomorrow. Please advise if any further recommendations Pearl Lopez RN Date of Resolution: 12/17/2023 Time of Resolution 9:39 AM [facility]06-28-2024 NoteHNO ID: [id number] Author: ITTA LANDYR APRN.CURT Service: ? Author Type: Nurse Practitioner Type: Progress Notes Filed: 01/16/2024 22:44 Note Text: Heart, Vascular and Thoracic [place] DEPARTMENT OF THORACIC SURGERY OUTPATIENT VISIT DATE December 13, 2023 OUTPATIENT VISIT TYPE ESTABLISHED PT NAME: Sav Raymundo [facility] NO: [id number] THORACIC SURGEON: Ronaldo Flood M.D. 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 Flood. Patient overall doing (more content not included)...[facility]06-28-2024 History of Present illness Narrative* GrisTita del real, LETICIA.UNIVERSITY SERVICES PROGRAM ASSOCIATE - 12/13/2023 1:27 PM EDT Heart, Vascular and Thoracic [place] DEPARTMENT OF THORACIC SURGERY OUTPATIENT VISIT DATE December 13, 2023 OUTPATIENT VISIT TYPE ESTABLISHED PT NAME: Sav Raymundo [facility] NO: [id number] THORACIC SURGEON: Ronaldo Flood M.D. 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 Right pleura, biopsy: - Chronic pleuritis with mesothelial hyperplasia (see comment). B. Right pleura, biopsy: - Acute organizing and chronic pleuritis (see comment). [place]/ 11/22/2023 Diagnosis Comment A. The biopsy contains [...] reactive proliferation. 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 Flood. Patient overall doing well from a clinical standpoint. CXR from today is still pending; to my eye, shows stable right pleural effusion. Patient continues to drain large amounts from pleurx catheter every other day. PLAN: -Follow-up in 1 week with CXR and UNIVERSITY SERVICES PROGRAM ASSOCIATE visit; sooner if experiencing new/worsening clinical symptoms -Continue to drain pleurx every other day Part of this note was copied from my previous note, all content has been individually and thoroughly reviewed, updated as necessary, patient assessed with updated information, and changes appropriately documented/adjusted. Tita Landry APRN.UNIVERSITY SERVICES PROGRAM ASSOCIATE documented in this encounterAdena Pike Medical Center06-18-2024 Telephone encounter Note * Telephone Encounter - Lilia Ornelas - 12/03/2023 4:42 PM EDT Confirmed date and time of apts w/ patient and his via phone. Both have access to [employer]. PF 12/13/2023 at [place] CX[facility] at 1:30pm Est 1 week follow up w/ Tita Landry at 2pm Per staff message from Tita Landry: please schedule patient for follow-up with me with CXR in 1 week [facility]06-18-2024 Miscellaneous Notes* Telephone Encounter - Lilia Ornelas - 12/03/2023 4:42 PM EDT Confirmed date and time of apts w/ patient and his via phone. Both have access to [employer]. PF 12/13/2023 at [place] CXR at 1:30pm Est 1 week follow up w/ Tita Landry at 2pm Per staff message from Tita Landry: please schedule patient for follow-up with me with CXR in 1 week documented in this encounterAdena Pike Medical Center06-18-2024 Nurse Note* Jessica Enriquez RN - 12/03/2023 1:47 PM EDT Patient stated he was having SOB. Pleur x drained yesterday for 1075ml. Attempted to drain pleur x today no drainage present. Applied dressing. Jessica Enriquez RN [facility]06-18-20[facility] Nurse Note* Jessica Enriquez, EVAN - 12/03/2023 1:47 PM EDT Patient stated he was having SOB. Pleur x drained yesterday for 1075ml. Attempted to drain pleur x today no drainage present. Applied dressing. Jessica Enriquez RN documented in this encounterAdena Pike Medical Center06-18-2024 NoteHNO ID: [id number] Author: TITA LANDRY APRN.CURT Service: ? Author Type: Nurse Practitioner Type: Progress Notes Filed: 12/30/2023 22:10 Note Text: Heart, Vascular and Thoracic [place] DEPARTMENT OF THORACIC SURGERY OUTPATIENT VISIT DATE December 03, 2023 OUTPATIENT VISIT TYPE ESTABLISHED PT NAME: Ang Pepe [facility] NO: [id number] THORACIC SURGEON: Ronaldo Flood M.D. 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 Did not drain in clinic today. Reviewed final pathology results which showshronic pleuritis with mesothelial hyperplasia, with no definitive evidence of malignancy. Patient's voices frustration that the cause of the patient's recurrent effusion is still (more content not included)...[facility]06-18-20[facility] History of Present illness Narrative* Tita LandryLETICIA.UNIVERSITY SERVICES PROGRAM ASSOCIATE - 12/03/2023 1:02 PM EDT Heart, Vascular and Thoracic [place] DEPARTMENT OF THORACIC SURGERY OUTPATIENT VISIT DATE December 03, 2023 OUTPATIENT VISIT TYPE ESTABLISHED PT NAME: Sav Raymundo [facility] NO: [id number] THORACIC SURGEON: Ronaldo Flood M.D. DATE OF SERVICE: 12/03/2023 PRINCIPAL DX: Recurrent Right Pleural Effusion SURGICAL HX 11/20/2023: R VATS pleural biopsy, right instrument mechanics supervisor and doxycycline pleurodesis, right Pleurx catheter insertion, right 20Fr chest tube insertion Surgical Pathology 11/20/2023: Component FINAL DIAGNOSIS A. Right pleura, biopsy: - Chronic pleuritis with mesothelial hyperplasia (see comment). B. Right pleura, biopsy: - Acute organizing and chronic pleuritis (see comment). TX/ 11/22/2023 Diagnosis Comment A. 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 Did not [...] effusion s/p R VATS pleural biopsy, right instrument mechanics supervisor and doxycycline pleurodesis, right Pleurx catheter insertion, right 20Fr chest tube insertion on 11/20/[address] Flood. Patient overall doing well from a clinical standpoint. CXR from today is still pending; to my eye, shows stable right pleural effusion. Patient continues to drain large amounts from pleurx catheter every other day. PLAN: -Follow-up in 1 week with CXR and UNIVERSITY SERVICES PROGRAM ASSOCIATE visit; sooner if experiencing new/worsening clinical symptoms -Continue to drain pleurx every other day Part of this note was copied from my previous note, all content has been individually and thoroughly reviewed, updated as necessary, patient assessed with updated information, and changes appropriately documented/adjusted. Tita Landry APRN.UNIVERSITY SERVICES PROGRAM ASSOCIATE documented in this encounterAdena [facility]06-18-2024 History of Present illness Narrative* [...] PATIENT PRESENTS WITH AN IMPLANTABLE OR ATTACHED DRY CHAIN PULLER: No RADIOLOGY DEPARTMENT: General X-ray: Exam(s) Completed: Chest X-Ray PERIPHERAL IV DATA: Not applicable SIGNED BY: IMAN Hernández) December 03, 2023 12:26 PM documented in this encounterAdena Pike Medical Center06-18-2024 NoteHNO ID: [id number] Author: ISAMAR GUEVARA RT (R) Service: Radiology [...] PATIENT PRESENTS WITH AN IMPLANTABLE OR ATTACHED DRY CHAIN PULLER: No RADIOLOGY DEPARTMENT: General X-ray: Exam(s) Completed: Chest X-Ray PERIPHERAL IV DATA: Not applicable SIGNED BY: IMAN Hernández) December 03, 2023 12:26 PMBr[facility] History of Present illness Narrative* Tita Landry APRN.UNIVERSITY SERVICES PROGRAM ASSOCIATE - 11/29/2023 3:00 PM EDT Heart, Vascular and Thoracic [place] DEPARTMENT OF THORACIC SURGERY OUTPATIENT VISIT DATE November 29, 2023 OUTPATIENT VISIT TYPE ESTABLISHED PT NAME: Sav Raymundo [facility] NO: [id number] THORACIC SURGEON: Ronaldo Flood M.D. 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 Author Type: Nurse Practitioner Type: Progress Notes Filed: 12/30/2023 21:20 Note Text: Heart, Vascular and Thoracic [place] DEPARTMENT OF THORACIC SURGERY OUTPATIENT VISIT DATE November 29, 2023 OUTPATIENT VISIT TYPE ESTABLISHED PT NAME: Sav Raymundo CLINIC NO: [id number] THORACIC SURGEON: Ronaldo Flood M.D. 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 Recommend draining pleurx daily until output slows down, but states she is unable to and [facility] comes every other day. 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 H&P 10/24/[address] Faisal Alcantara 10/18/2023 CCT . Huy Robles RN documented in this encounterAdena Pike Medical Center05-28-2024 Nurse Note* Huy Robles RN - 11/12/2023 2:27 PM EDT PATIENT EDUCATION The following was evaluated: Motivation To Learn: Interested Family/Significant Other Support: High - Very involved in pt care Cognitive Ability: Alert and oriented Patient Learns Best By: Multiple Methods The Following Influencing Factors Were Barriers To This Education Session: No barriers Fuel Agent Present: Not Applicable The Following Physical Limitations [...] Robles RN. In Department of THORACIC CLINIC. [facility]05-28-[facility] Nurse Note* Huy Robles RN - 11/12/2023 2:27 PM EDT PATIENT EDUCATION The following was evaluated: Motivation To Learn: Interested Family/Significant Other Support: High - Very involved in pt care Cognitive Ability: Alert and oriented Patient Learns Best By: Multiple Methods The Following Influencing Factors Were Barriers To This Education Session: No barriers Fuel Agent Present: Not Applicable The Following Physical Limitations [...] Department of THORACIC CLINIC. documented in this encounterAdena Pike Medical Center05-28-2024 History of Present illness Narrative* Mariam Sy, [employer] Tech - 11/12/2023 10:00 AM EDT RADIOLOGY [...] PATIENT PRESENTS WITH AN IMPLANTABLE OR ATTACHED DRY CHAIN PULLER: No CREATININE: Creatinine Date Value Ref Range [...] POST EXAM PIV STATUS: Discontinued PROCEDURE TYPE: OR Stress: 11.8 mCi [id number] was administered IV for Rest Imaging at 10:18AM by GRECIA BARAJAS. 41.8 mCi [id number]-[id number] was administered IV for Stress Imaging at 1118 by Mariam Patterson ADMINISTRATION TIME: PATIENT DISCHARGED TO: Ambulatory patient, left NM [...] ALLERGIES: Reviewed and unchanged MEDICATIONS REVIEWED BY: Special Investigator PROCEDURE TYPE: NM STRESS: 0.4 mg of Lexiscan was administered IV at 1018 by Vibha Dempsey RN . Reversal agent used: None. Expiration date: 06/2025 Lot#: [id number] IV SITE: Ambulatory: A Saline lock was inserted per protocol POST EXAM PIV STATUS: Discontinued PATIENT DISCHARGED TO: Ambulatory patient, left [place] department area. A Diagnostic radioactive procedure has taken place, with no further precautions necessary other than routine body substance precautions. More information regarding radiation safety can be found usingthis link: [email or web address] SIGNATURE: Vibha Dempsey RN PATIENT NAME: Sav Raymundo DATE: November 12, 2023 TIME: 11:14 AM PAGER/CONTACT #: documented in this encounterAdena Pike Medical Center05-28-2024 History of Present illness Narrative* [...] PATIENT PRESENTS WITH AN IMPLANTABLE OR ATTACHED DRY CHAIN PULLER: No RADIOLOGY DEPARTMENT: General X-ray: Exam(s) Completed: Chest X-Ray PERIPHERAL IV DATA: Not applicable SIGNED BY: RT Hudson(R) November 12, 2023 8:12 AM documented in this encounterAdena Pike Medical Center05-23-2024 Telephone encounter Note * Telephone [...] 6/5 pt voiced understanding Patricia Bermudez RN [facility]05-23-2024 Miscellaneous Notes* Telephone Encounter - [...] understanding Patricia Bermudez RN documented in this encounterAdena Pike Medical Center05-13-2024 History of Present illness Narrative* [...] this time. Patricia Bermudez MSN, RN Nurse Supervisor [employer] Thoracic Surgery [facility] * Patricia Bermudez RN - 10/25/2023 11:43 AM EDT October 25, 2023 11:43 AM left message on patient mobile phone to discuss surgical planning, await call back. Tentative plans for: OR 11/20/2023 pending patient acceptance Patricia Bermudez RN documented in this encounterAdena Pike Medical Center05-10-2024 History of Present illness Narrative* Ronaldo Flood MD, PhD - 10/25/2023 10:[address] [facility] STAFF PHYSICIAN NOTE OF PERSONAL INVOLVEMENT [...] INSTITUTE THORACIC SURGERY OUTPATIENT CONSULT NOTE Sav Pepe Breanne [id number] Requesting Provider: Dr. Sintia Clemente Thoracic Physician: Ronaldo Flood MD Chief Complaint: R pleural effusion Impression: Sav Raymundo is a 73 year old White male with PMH of HTN, hyperlipidemia, gout, GERDreferred by Dr. Sintia Clemente for an opinion regarding management of [...] HTN, hyperlipidemia, gout, GERD referred by Dr. Sintia Clemente for an opinion regarding management of [...] by: Mark Malone MD documented in this encounterAdena Pike Medical Center05-06-2024 Telephone encounter Note * Telephone Encounter - Jahaira Wood - 10/21/2023 11:41 AM EDT Received ED visit notes 10/18/23 from [facility] Records scanned in [facility] Chest and Chest XR imaging requested from [facility] Jahaira Wood, hotel administrative assistant [facility]05-06-2024 Miscellaneous Notes* Telephone Encounter - Jahaira Wood - 10/21/2023 11:41 AM EDT Received ED visit notes 10/18/23 from [facility] Records scanned in [facility] hotel administrative assistant * Telephone Encounter - Patricia Bermudez RN - 10/21/2023 10:08 AM EDT Images from the original note were not included. Thoracic Surgery Consultation - review of records for appointment scheduling Received medical records from the office of Sintia Clemente [address] [place] [id number] Patient is being referred to Ronaldo Flood MD, PhD by Sintia Clemente for Pleural Effusion Outside hospital records scanned Pathology: Procedures: right thoracentesis 10/01/23 520ml thoracentesis 09/04/[address] chest done at [facility] for Shortness of breath - pt [...] pt aware and agreeable Patricia Bermudez, RN * Telephone Encounter - Jahaira Wood - 10/16/2023 9:16 AM EDT LOCAL PATIENT Received Fax from Dr. Sintia Ang Pepe Raymundo is being referred to Ronaldo Flood M.D., Ph. D. by Sintia Clemente [address] [place] [address] Patient diagnosis/Reason for consult: Pleural Effusion Recurrent Referral triage process explained: Yes Patient will receive a call from Thoracic NPM after triage review with surgeon to discuss any additional testing and/or consults that will be scheduled. Pt will then receive a call from our scheduling office for scheduling. Please call pt at [phone]. Patient was informed consultation could be at [place] or [facility] [place]: No Patient Registration: Registration complete/updated: yes Insurance card(s) scanned in [facility] with in the past year: Yes: Date: 10/16/23 Pt's [employer] is inactive. Ok to communicate to pt via Spot[employer] not asked Medical Records: Records in [facility] (internal [facility] records): No Imaging in [facility] (internal [facility] records): No Care Everywhere - queried yes, downloaded Yes Linked Outside Organizations (list): [facility] Records Requested: no Date: N/A Outside Hospital(s) requested records from: Dr. Clemente Received: yes Uploaded: Yes. Waiting on additional records: No. Missing (list): N/A OSH Pathology Slides Requested: no Date: N/A Outside Hospital(s) slides requested from: n/a OS Radiology Imaging Requested: yes Date: October 16, 2023 Outside Hospital(s) requested imaging from: [facility]. Imaging will be received via Electronic Transfer Received: Yes Imaging uploaded: Yes Waiting on additional: No Missing (list): n/a Additional providers added to Care Teams: Yes Additional Notes/Comments: Pt's spouse states pt is waiting to be scheduled for another CT Chest locally. Enct routed to: Margaret Vasquez NPM for Triage aJhaira Wood, hotel administrative assistant documented in this encounterAdena Pike Medical Center05-06-2024 Telephone encounter Note * Telephone Encounter - Patricia Bermudez RN - 10/21/2023 10:08 AM EDT Images from the original note were not included. Thoracic Surgery Consultation - review of records for appointment scheduling Received medical records from the office of Sintia Clemente [address] [place] [address] Patient is being referred to Ronaldo Flood MD, PhD by Sintia Clemente for Pleural Effusion Outside hospital records scanned Pathology: Procedures: right thoracentesis 10/01/23 520ml thoracentesis 09/04/[address] right [address] chest done at [facility] for Shortness of breath - pt [...] pt aware and agreeable Patricia Bermudez RN [facility]05-01-20[facility] Telephone encounter Note* Telephone Encounter - Jahaira Wood - 10/16/2023 9:16 AM EDT LOCAL PATIENT Received Fax from Dr. Sintia Tapiaveronica Raymundo is being referred to Ronaldo Flood M.D., Ph. D. by Sintia Clemente [address] [facility] [address] Patient diagnosis/Reason for consult: Pleural Effusion Recurrent Referral triage process explained: Yes Patient will receive a call from Thoracic NPM after triage review with surgeon to discuss any additional testing and/or consults that will be scheduled. Pt will then receive a call from our scheduling office for scheduling. Please call pt at [phone]. Patient was informed consultation could be at [place] or [facility]: No Patient Registration: Registration complete/updated: yes Insurance card(s) scanned in [employer] with in the past year: Yes: Date: 10/16/23 Pt's [employer] is inactive. Ok to communicate to pt via Spot[employer] not asked Medical Records: Records in [facility] (internal [facility] records): No Imaging in [facility] (internal [facility] records): No Care Everywhere - queried yes, downloaded Yes Linked Outside Organizations (list): [facility] Records Requested: no Date: N/A Outside Hospital(s) requested records from: Dr. Clemente Received: yes Uploaded: Yes. Waiting on additional records: No. Missing (list): N/A OS Pathology Slides Requested: no Date: N/A Outside Hospital(s) slides requested from: n/a OS Radiology Imaging Requested: yes Date: October 16, 2023 Outside Hospital(s) requested imaging from: [facility]. Imaging will be received via Electronic Transfer Received: Yes Imaging uploaded: Yes Waiting on additional: No Missing (list): n/a Additional providers added to Care Teams: Yes Additional Notes/Comments: Pt's spouse states pt is waiting to be scheduled for another CT Chest locally. Enct routed to: Margaret Vasquez NPM for Triage Jahaira oWod, hotel administrative assistant [facility]04-30-2024 Telephone encounter Note* Telephone Encounter - Shila Desouzaasha - 10/15/2023 4:06 PM EDTSummary: CARDIO THORACIC SURG Patient: Sav Raymundo Date of : 1950 Patient phone number: [phone] Referring Provider for the encounter: Sintia Clemente Requesting Provider: Dr Ronaldo Flood Reason for requesting visit (RFV/signs and symptoms/diagnosis): pleural effusion recurment . Person calling: Via RP FAX Return call to: self Medical Records/Insurance Card scanned into Epic: Comments: [facility]04-30-2024 Miscellaneous Notes* Telephone Encounter - Shila Desouzaasha - 10/15/2023 4:06 PM EDTSummary: CARDIO THORACIC SURG Patient: Sav Raymundo Date of : 1950 Patient phone number: [phone] Referring Provider for the encounter: Sintia Clemente Requesting Provider: Dr Ronaldo Flood Reason for requesting visit (RFV/signs and symptoms/diagnosis): pleural effusion recurment . Person calling: Via RP FAX Return call to: self Medical Records/Insurance Card scanned into Epic: Comments: documented in this encounterAdena Pike Medical Center02-06-2024 Evaluation note* Encounter Date Diagnosis Assessment Notes Treatment Notes Treatment Clinical Notes Jul, Subacute cough (ICD-10 - R05.2) Continue treatment of any PND and GERD. Continue Mucinex DM. Trial of Prednisone and Albuterol. Jul,rimary hypertension (ICD-10 - I10)This patient is instructed to consume a healthy, low-fat, low-salt diet. They are also encouraged to continue exercise to achieve/maintain a normal BMI. [employer] Other 01-24-2024 Evaluation note* Encounter Date Diagnosis Assessment Notes Treatment Notes Treatment Clinical Notes Jun, Subacute cough (ICD-10 - R05.2) [employer] Other 01-21-2024 Evaluation note* Encounter Date Diagnosis Assessment Notes Treatment Notes Treatment Clinical Notes Jun, Subacute cough (ICD-10 - R05.2) [employer] Other 01-09-2024 Evaluation note* Encounter Date Diagnosis Assessment Notes Treatment Notes Treatment Clinical Notes Jun, Primary hypertension (ICD-10 - I 10) [employer] Other 11-21-2023 Evaluation note* Encounter Date Diagnosis Assessment Notes Treatment Notes Treatment Clinical Notes Apr, Acute bronchitis due to other sp ecified organisms (ICD-10 - J20.8) [employer] Other 11-08-2023 Evaluation note* Encounter Date Diagnosis Assessment Notes Treatment Notes Treatment Clinical Notes Apr, Primary hypertension (ICD-10 - I 10) [employer] Other 11-06-2023 Evaluation note* Encounter Date Diagnosis [...] reviewed and amended by provider signed below. Apr,astro-esophageal reflux disease with esophagitis, without bleeding (ICD-10 - K21.00)Diet instructions: Smaller portions, avoid eating and laying flat, avoid eating or drinking prior to bedtime. Weight loss. Apr,Hyperlipidemia type II (ICD-10 - E78.01)Instructed on diet and exercise with continued statin therapy.Discussed the beneficial effects of lo wering cholesterol in reducing the risk for cerebrovascular and cardiovascular disease. Apr,Elevated BP without diagnosis of hypertension (ICD-10 - R03.0)This patient is instructed to consume a healthy, low-fat, low-salt diet. They are also encouraged to continue exercise to achieve/maintain a normal BMI. Patient is instructed on home BP measurements: - rest for 5 minutes w/o talking- positioned w/ feeton floor and arm supported- average best 2/3 readings w/ goal < 135/85 _update office in days Apr,Other obesity due to excess calories (ICD-10 - E66.09)This patient has been instructed on a low-fat, high-fiber diet. They are instructed to reduce calories, portion sizes and snacks. It is recommended that they exercise for 30 minutes, 3-5 times weekly. Apr,ody mass index [BMI] 30.0-30.9, adult (ICD-10 - Z68.30) Apr,Screening PSA (prostate specific antigen) (ICD-10 - Z12.5)Yealry PSA [employer] Other 11-01-2023 Evaluation note* Encounter Date Diagnosis Assessment Notes Treatment Notes Treatment Clinical Notes Apr, Screening PSA (prostate specific antigen) (ICD-10 - Z12.5) Apr,Hyperlipidemia type II (ICD-10 - E78.01) Apr,astro-esophageal reflux disease with esophagitis, without bleeding (ICD-10 - K21.00) Apr,Fatigue, unspecified type (ICD-10 - R53.83) Apr,High risk medication use (ICD-10 - Z79.899) [employer] Other 08-28-2023 History of Present illness Narrative* Margie Edouard, - 02/11/2023 2:00 PM EDT Telehealth Visit Via Phone Call Patient: Sav Raymundo Date of : 1950 (72 y.o. male) Patient Patient Location: [address] [place] [address] [place] [address] [facility] I discussed risks, benefits and [...] there are inherent diagnostic limitations compared to dzhj-ky-wsnq evaluations. We elected toproceed with the telephone [...] expedite correspondence this note was generated by [employer] voice recognition software. Somegrammatical or spelling errors may occur using the system. documented in this [id number] History of Present illness Narrative* Nena Huff DO - 01/16/2023 10:35 AM EDT [facility] [address] [place] [address] Patient Name: Sav Raymundo Patient Age: 72 [...] KNEE ARTHROPLASTY; Surgeon: Karthik Calloway MD; Location: [facility] OR; Service: ARTHROPLASTY KNEE TOTAL Right 06/25/2016 Procedure: RIGHT TOTAL KNEE ARTHROPLASTY ; Surgeon: Karthik Calloway MD; Location: [facility] OR; Service: BASAL CELL CARCINOMA EXCISION Left [...] mouth every morning . vit A-vit C-vit W-itrb-nxnnjw 7,160-113-100 bhgg-ff-wsmi Tab Take 1 tablet by mouth every [...] Imaging: X-rays of the left knee from [facility] taken today are reviewed. My personal [...] expedite correspondence this note was generated by [employer] voice recognition software. Somegrammatical or spelling errors may occur using the system. documented in this [id number] Evaluation note* Encounter Date Diagnosis Assessment Notes Treatment Notes Treatment Clinical Notes Dec, Laceration of scalp, initial enc ounter (ICD-10 - S01.01XA) Cleanse scalp w/ soap and water [employer] Other 06-05-2023 History of Present illness Narrative* [...] the left great toe does not apparently drafter geophysical the ground. IMAGING: Please see dictated report. ASSESSMENT: Left hallux rigidus Left metatarsalgia PLAN: I performed a left first MTP joint injection at today's visit. Please see separate procedure note. I recommended that we proceed with custom orthotics with a Eaton's extension, built-in metatarsal pad. Order was [facility] to [facility] orthopedics. We discussed left first [...] expedite correspondence, this note was generated by [employer] voice recognition software. Some grammatical or spelling errors may occur using this system. documented in this [id number] History of Present illness Narrative* Grecia Faith [...] expedite correspondence, this note was generated by [employer] voice recognition software. Some grammatical or spelling errors may occur using this system. documented in this [id number] History of Present illness Narrative* Margie Edouard, [...] the left great toe does not apparently drafter geophysical the ground. IMAGING: Please see dictated report. [...] expedite correspondence, this note was generated by [employer] voice recognition software. Some grammatical or spelling errors may occur using this system. [facility] Diagnosis Status post total knee replacement, bilateral- Primary documented in [facility] encounter [facility]* Diagnosis Hallux rigidus of left foot- Primary Eaton's metatarsalgia, left documented in this encounter [facility] note* Diagnosis Hallux rigidus of left foot- Primary Metatarsalgia, left foot documented in this encounter [facility] note* Diagnosis Hallux rigidus of left foot- Primary documented in this encounter [facility] note* Diagnosis Status post total knee replacement, bilateral- Primary documented in this encounter [facility] note* Diagnosis Hallux rigidus of left foot- Primary documented in [facility] encounter [facility] noteNo MemoropScott [employer] Other Evaluation note* Diagnosis Status post total knee replacement, bilateral- Primary documented in this encounter [facility] note* Diagnosis Onset Date Resolution Status Nausea & vomiting acutePrimary hypertensionacuteSubacute coughacuteDyspnea on effortnoneactive [place] [facility] Work Phone: Evaluation note* Diagnosis Pleural effusion- Primary Unspecified pleural effusion documented in this encounter [facility] note* Diagnosis Obesity, Class I, BMI 30-34.9- Primary Obesity, unspecified Pleural effusion Unspecified pleural effusion documented in this encounter [facility] note* Diagnosis Pleural effusion- Primary Unspecified pleural effusion Encounter for other preprocedural examination Pleural effusion Unspecified pleural effusion Encounter for other preprocedural examination documented in this encounter [facility] note* Diagnosis Pleural effusion- Primary Unspecified pleural effusion Pleural effusion Unspecified pleural effusion Encounter for other preprocedural examination documented in this encounter [facility] note* Diagnosis Pleural effusion Unspecified pleural effusion Encounter for other preprocedural examination Pleural effusion Unspecified pleural effusion Encounter for other preprocedural examination documented in this encounter [facility] note* Diagnosis Surgery follow-up- Primary Follow-up examination, following unspecified surgery [facility] Diagnosis Follow-up exam- Primary Unspecified follow-up examination documented in this encounter [facility] note* Diagnosis Surgery follow-up Follow-up examination, following unspecified surgery documented in this encounter [facility] note* Diagnosis Follow-up exam Unspecified follow-up examination documented in this encounter [facility] note* Diagnosis Pleural effusion Unspecified pleural effusion documented in this encounter [facility] note* Diagnosis Pleural effusion Unspecified pleural effusion documented in this encounter [facility] note* Diagnosis Follow-up examination after lung surgery- Primary Follow-up examination, following other surgery Pleural effusion Unspecified pleural effusion [facility] Diagnosis Follow-up examination after lung surgery- Primary Follow-up examination, following other surgery Pleural effusion Unspecified pleural effusion Pleural effusion Unspecified pleural effusion documented in this encounter [facility] note* Diagnosis Pleural effusion- Primary Unspecified pleural effusion [facility] Diagnosis Chronic cough- Primary Cough Pleural effusion Unspecified pleural effusion [facility] Diagnosis Recurrent pleural effusion- Primary History of pericarditis Personal history of other diseases of circulatory system Chronic cough Cough [facility] Diagnosis Recurrent 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 Unspecified pleural effusion documented in this encounter [facility] note* Diagnosis Recurrent 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- Primary Unspecified pleural effusion Chronic cough Cough Elevated C-reactive protein (CRP) Elevated sedimentation rate documented in this encounter [facility] note* Diagnosis Pleural effusion- Primary Unspecified pleural effusion Pleural effusion Unspecified pleural effusion documented in this encounter [facility] note* Diagnosis Follow-up examination after lung surgery- Primary Follow-up examination, following other surgery Pleural effusion Unspecified pleural effusion Bilateral lower extremity edema Edema Anasarca Edema Nausea vomiting and diarrhea Diarrhea documented in this encounter [facility] note* Diagnosis Pleural effusion- Primary Unspecified pleural effusion Elevated sed rate Elevated sedimentation rate Elevated C-reactive protein (CRP) [facility] Diagnosis Recurrent 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- Primary Unspecified pleural effusion Primary hypertension Unspecified essential hypertension Pleural effusion Unspecified pleural effusion Chronic cough Cough Anemia, unspecified type Hypomagnesemia Disorders of magnesium metabolism documented in this encounter [facility] note* Diagnosis Recurrent 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- Primary Unspecified pleural effusion History of pericarditis Personal history of other diseases of circulatory system documented in this encounter [facility] note* Diagnosis Pleural effusion Unspecified pleural effusion documented in this encounter [facility] note* Diagnosis Chronic cough Cough Pleural effusion Unspecified pleural effusion documented in this encounter [facility] note* Diagnosis Pleural effusion- Primary Unspecified pleural effusion documented in this encounter [facility] note* Diagnosis Chronic cough- Primary Cough Pleural effusion Unspecified pleural effusion Interstitial pulmonary disease (HCC) Postinflammatory pulmonary fibrosis documented in this encounter [facility] note* Diagnosis Pleural effusion- Primary Unspecified pleural effusion Interstitial pulmonary disease (HCC) Postinflammatory pulmonary fibrosis documented in this encounter [facility] note* Diagnosis Chronic cough- Primary Cough [...] Postinflammatory pulmonary fibrosis documented in this encounter [facility] note* Diagnosis Chronic bronchitis, unspecified chronic bronchitis type (HCC) documented in this encounter [facility] note* Diagnosis Interstitial pulmonary disease (HCC) Postinflammatory pulmonary fibrosis documented in this encounter [facility] note* Diagnosis Pericarditis, unspecified chronicity, unspecified type documented in this encounter [facility] note* Diagnosis Pleural effusion- Primary Unspecified pleural effusion Elevated sed rate Elevated sedimentation rate Elevated C-reactive protein (CRP) Diarrhea, unspecified type documented in this encounter [facility] note* Diagnosis Diarrhea, unspecified type Abdominal pain, unspecified abdominal location documented in this encounter [facility] note* Diagnosis Abdominal pain, unspecified abdominal location- Primary Diarrhea, unspecified type Diarrhea, unspecified type Abdominal pain, unspecified abdominal location documented in this encounter [facility] note* Diagnosis Nausea and vomiting, unspecified vomiting type [facility] Recurrent 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- Primary Unspecified pleural effusion Anasarca Edema Chronic cough Cough Primary hypertension Unspecified essential hypertension [facility] Diagnosis Pleural effusion Unspecified pleural effusion [facility] Diagnosis Pleural effusion- Primary Unspecified pleural effusion Chronic cough Cough Lung nodule Solitary pulmonary nodule Lymphocytic colitis Other and unspecified noninfectious gastroenteritis and colitis Pleural effusion Unspecified pleural effusion [facility] Diagnosis Pleural effusion- Primary Unspecified pleural effusion Elevated sed rate Elevated sedimentation rate Elevated C-reactive protein (CRP) documented [facility]* Diagnosis Lymphocytic colitis- Primary Other and unspecified noninfectious gastroenteritis and colitis [facility] Diagnosis Recurrent 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- Primary Unspecified pleural effusion Primary hypertension Unspecified essential hypertension Lymphocytic colitis Other and unspecified noninfectious gastroenteritis and colitis Elevated C-reactive protein (CRP) Exocrine pancreatic insufficiency Other specified disease of pancreas Hypokalemia Hypopotassemia Anasarca Edema [facility] Diagnosis Pleural effusion- Primary Unspecified pleural effusion [facility]* Diagnosis Pleural effusion- Primary Unspecified pleural effusion Pleuritis Pleurisy without mention of effusion or current tuberculosis Lymphocytic colitis Other and unspecified noninfectious gastroenteritis and colitis Pericardial effusion (noninflammatory) Interstitial pulmonary disease (HCC) Postinflammatory pulmonary fibrosis [facility] Diagnosis Pleural effusion [J90]- Primary Unspecified pleural effusion [facility] Diagnosis Pleural effusion Unspecified pleural effusion [facility] Diagnosis Pleural effusion- Primary Unspecified pleural effusion Muscle cramps Cramp of limb Anasarca Edema Hypomagnesemia Disorders of magnesium metabolism Lymphocytic colitis Other and unspecified noninfectious gastroenteritis and colitis [facility] Diagnosis Fatigue, unspecified type- Primary [facility] Diagnosis Pleural effusion- Primary Unspecified pleural effusion [facility] Diagnosis Pleural effusion- Primary Unspecified pleural effusion Pleuritis Pleurisy without mention of effusion or current tuberculosis Pericardial effusion (noninflammatory) Chronic cough Cough documented [facility]* Diagnosis Pleural effusion- Primary Unspecified pleural effusion documented [facility]* Diagnosis Pleural effusion Unspecified pleural effusion documented in this encounter [facility] note* Diagnosis Early dry stage nonexudative age-related macular degeneration of both eyes- Primary Dry eyes Unspecified tear film insufficiency Blepharitis of upper and lower eyelids of both eyes, unspecified type Bilateral posterior capsular opacification Unspecified after-cataract Chalazion of left upper eyelid documented in this encounter [facility] note* Diagnosis Pleural effusion- Primary Unspecified pleural effusion documented [facility]* Diagnosis Recurrent 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- Primary Unspecified pleural effusion documented in this encounter [facility] note* Diagnosis Lymphocytic colitis- Primary Other and unspecified noninfectious gastroenteritis and colitis Esophageal dysphagia Dysphagia, pharyngoesophageal phase documented in this [facility]* Diagnosis Seborrheic keratosis- Primary Actinic keratosis Stasis dermatitis of both legs Lentigines documented in this encounter [facility] note* Diagnosis Recurrent 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- Primary Unspecified pleural effusion documented [facility]* Diagnosis Recurrent 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- Primary Unspecified pleural effusion documented in this [facility]* Diagnosis Recurrent 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- Primary Unspecified pleural effusion Hypokalemia Hypopotassemia Lymphocytic colitis Other and unspecified noninfectious gastroenteritis and colitis Anemia, unspecified type Chronic insomnia Insomnia, unspecified Bronchiolar disease Other diseases of trachea and bronchus documented in this encounter [facility]* Diagnosis Esophageal dysphagia- Primary Dysphagia, pharyngoesophageal phase Bronchiolar disease Other diseases of trachea and bronchus [facility] Diagnosis Cough, unspecified type documented in this encounter [facility]* Diagnosis Elevated BUN- Primary Other abnormal blood chemistry Elevated serum creatinine Other nonspecific findings on examination of blood Decreased GFR Nonspecific abnormal results of kidney function study Elevated alkaline phosphatase level Other nonspecific abnormal serum enzyme levels documented [facility] this [facility]* Diagnosis FLOYD (acute kidney injury)- Primary Acute kidney failure, unspecified Elevated BUN Other abnormal blood chemistry Elevated serum creatinine Other nonspecific findings on examination of blood Decreased GFR Nonspecific abnormal results of kidney function study Lymphocytic colitis Other and unspecified noninfectious gastroenteritis and colitis Pleural effusion, not elsewhere classified Generalized edema Edema [facility] Diagnosis Screening for genitourinary condition Screening for other and unspecified genitourinary condition [facility] Diagnosis Cramp and spasm [facility] Diagnosis Serositis (HCC)- Primary Other specified disorder of intestines [facility] Diagnosis Generalized abdominal pain- Primary Abdominal pain, generalized Other ascites [facility] Diagnosis Elevated alkaline phosphatase level Other nonspecific abnormal serum enzyme levels [facility] Diagnosis Pleural effusion- Primary Unspecified pleural effusion [facility] Diagnosis Pleural effusion Unspecified pleural effusion Encounter for other preprocedural examination [facility] Diagnosis Anasarca- Primary Edema Recurrent 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 Unspecified pleural effusion Hepatomegaly Hiatal hernia Diaphragmatic hernia without mention of obstruction or gangrene Chronic gastritis without bleeding, unspecified gastritis type Hypomagnesemia Disorders of magnesium metabolism [facility] Diagnosis Pleural effusion Unspecified pleural effusion [facility] Diagnosis Extremity cyanosis- Primary Other peripheral vascular disease [facility] Diagnosis Pleural effusion- Primary Unspecified pleural effusion [facility] Diagnosis Pleural effusion- Primary Unspecified pleural effusion Pleuritis Pleurisy without mention of effusion or current tuberculosis Pericardial effusion (noninflammatory) (HCC) Lymphocytic colitis Other and unspecified noninfectious gastroenteritis and colitis Other ascites [facility] Diagnosis Pleural effusion, not elsewhere classified [facility]* Diagnosis Hepatomegaly [facility] Diagnosis Cramp and spasm [facility] Diagnosis Mixed connective tissue disease (HCC)- Primary Other specified diffuse disease of connective tissue Urge incontinence Hypokalemia Hypopotassemia Recurrent 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 Unspecified pleural effusion Muscle cramps Cramp of limb Hiatal hernia Diaphragmatic hernia without mention of obstruction or gangrene [facility] Diagnosis Elevated serum creatinine- Primary Other nonspecific findings on examination of blood Elevated alkaline phosphatase level Other nonspecific abnormal serum enzyme levels [facility] Diagnosis Pleural effusion, not elsewhere classified Elevated alkaline phosphatase level Other nonspecific abnormal serum enzyme levels documented in this [facility]* Diagnosis Cramp and spasm Elevated alkaline phosphatase level Other nonspecific abnormal serum enzyme levels [facility] Diagnosis Pleural effusion- Primary Unspecified pleural effusion Pleuritis Pleurisy without mention of effusion or current tuberculosis Pericardial effusion (noninflammatory) ([facility]) History of pericarditis Personal history of other diseases of circulatory system Lymphocytic colitis Other and unspecified noninfectious gastroenteritis and colitis Elevated alkaline phosphatase level Other nonspecific abnormal serum enzyme levels [facility] Diagnosis Hypomagnesemia- Primary Disorders of magnesium metabolism Dyslipidemia Other and unspecified hyperlipidemia Anemia, unspecified type [facility] Diagnosis Other ascites- Primary [facility] Diagnosis Other ascites [facility] Diagnosis FLOYD (acute kidney injury)- Primary Acute kidney failure, unspecified Screening for genitourinary condition Screening for other and unspecified genitourinary condition Elevated serum creatinine Other nonspecific findings on examination of blood Decreased GFR Nonspecific abnormal results of kidney function study Generalized edema Edema Pleural effusion, not elsewhere classified [facility] this [facility]* Diagnosis FLOYD (acute kidney injury)- Primary [...] unspecified genitourinary condition [facility] Diagnosis 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, stage 2 (CMS-HCC)- Primary Cellulitis of left foot Pain in toe of left foot Pain in soft tissues of limb Difficulty walking Difficulty in walking [facility] 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, stage 2 (CMS-HCC)- Primary Cellulitis of left foot Pain in toe of left foot Pain in soft tissues of limb Difficulty walking Difficulty in walking [facility] Diagnosis 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, stage 2 (CMS-HCC)- Primary Cellulitis of left foot Pain in toe of left foot Pain in soft tissues of limb Difficulty walking Difficulty in walking [facility] N[facility]ative - Reported* Type Description Date Medical History 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 Medical HistoryBenign prostatic hyperplasia with lower urinary tract symptoms Medical HistoryHyperlipidemia type IIMedical HistoryGastro-esophageal reflux disease with esophagitis, without bleedingSurgical Historyboth knee replaced Surgical Historyhand surgeryHospitalization HistorySEE ABOVE [employer] Other Reason for referral (narrative)* Outpatient Procedure (Routine) - AuthorizedSpecialtyDiagnoses / ProceduresReferred By Contact [facility] Pleural effusion Encounter for other preprocedural examination Procedures SIX MINUTE WALK CARDIOPULMONARY EXERCISE STRESS Ronaldo Flood MD, PhD [id number] [place] [address] [facility] [place] [address] [place] [address] Referral IDStatusReasonStwhigham DateExpiration DateVisits RequestedVisits [id number] Auto-Generated Referral * Outpatient Procedure (Routine) - AuthorizedSpecialtyDiagnoses / Procedures Referred By ContactReferred To [facility] [place] Diagnoses Pleural effusion Encounter for other preprocedural examination Procedures ECG COMPLETE ECG ROUTINE ECG W/LEAST 12 LDS W/I&R Ronaldo Flood MD, PhD [address] [place] [address] [facility] [place] [address] [place] [address] Referral IDStatusSairaasonStwhigham DateExpiration DateVisits RequestedVisits [id number] Auto-Generated Referral * Diagnostic Procedure Only (Routine) - AuthorizedSpecialtyDiagnoses / ProceduresReferred By ContactReferred To [facility] Diagnoses Pleural effusion Encounter for other preprocedural examination Procedures NM CARDIAC PERF STRESS/EXERCISE MYOCARDIAL SPECT MULTIPLE STUDIES Ronaldo Flood MD, PhD [address] [address] Molecular [facility] [address] [place] [address] Referral IDStatusReasonStart DateExpiration DateVisits RequestedVisits [id number] Auto-Generated Referral * Outpatient Procedure (Routine) - AuthorizedSpecialtyDiagnoses / Procedures Referred By ContactReferred To [facility] Diagnoses Pleural effusion Encounter for other preprocedural examination Procedures LUNG DIFFUSION CAPACITY (DLCO) DIFFUSING CAPACITY Ronaldo Flood MD, PhD [address] [address] [place] [address] Referral IDStatusReasonStwhigham DateExpiration DateVisits RequestedVisits [id number] Auto-Generated Referral * Outpatient Procedure (Routine) - AuthorizedSpecialtyDiagnoses / Procedures Referred By ContactReferred To [facility] Diagnoses Pleural effusion Encounter for other preprocedural examination Procedures SPIROMETRY WITH DILATOR IF OBSTRUCTED BRNCDILAT RSPSE SPMTRY PRE&POST-BRNCDILAT ADMN Ronaldo Flood MD, PhD [address] [address] [place] [id number] Res[facility] [place] [id number] Referral IDStatusReasonStart DateExpiration DateVisits RequestedVisits [id number] Auto-Generated Referral [facility] for referral (narrative)* Outpatient Procedure (Routine) - New RequestSpecialtyDiagnoses / ProceduresReferred By ContactReferred To [facility] Diagnoses Chronic cough Pleural effusion Procedures SPIROMETRY WITH DILATOR IF OBSTRUCTED BRNCDILAT RSPSE SPMTRY PRE&POST-BRNCDILAT ADMN Katerina Bravo APRN.UNIVERSITY SERVICES PROGRAM ASSOCIATE [id number] [place] [address] Referral IDStatusReasonStart DateExpiration DateVisits RequestedVisits [id number] Request Auto-Generated Referral / * Outpatient Procedure (Routine) - New RequestSpecialtyDiagnoses / Procedures Referred By ContactReferred To [facility] Diagnoses Chronic cough Pleural effusion Procedures NITRIC OXIDE, EXHALED NITRIC OXIDE GAS DETERMINATION Katerina Bravo APRN.UNIVERSITY SERVICES PROGRAM ASSOCIATE [id number] [place] [address] Referral IDStatusReasonStart DateExpiration DateVisits RequestedVisits [id number] Request Auto-Generated Referral / [facility] for referral (narrative)* Outpatient Procedure (Routine) - ClosedSpecialtyDiagnoses / ProceduresReferred By ContactRefkaiser permanente [facility] To [facility] Diagnoses Pleural effusion Interstitial pulmonary disease (HCC) Procedures LUNG VOLUMES Louise Cesar MD [address] [place] [address] [place] [address] Referral IDStatusSairaasonStart DateExpiration DateVisits RequestedVisits [id number] Auto-Generated Referral * Outpatient Procedure (Routine) - ClosedSpecialtyDiagnoses / ProceduresReferred By ContactReferred To [facility] Diagnoses Chronic cough Pleural effusion Interstitial pulmonary disease (HCC) Procedures LUNG DIFFUSION CAPACITY (DLCO) [place] [address] [place] [address] [place] [address] Referral IDStatusReasonStart DateExpiration DateVisits RequestedVisits [id number] Auto-Generated Referral * Outpatient Procedure (Routine) - AuthorizedSpecialtyDiagnoses / Procedures Referred By ContactReferred To [facility] Diagnoses Pericarditis, unspecified chronicity, unspecified type Procedures ECHO ECHO TTHRC R-T 2D W/WOM-MODE COMPL SPEC&COLR D Louise Cesar MD [address] [place] [address] [place] [address] Referral IDStatusReasonStart DateExpiration DateVisits RequestedVisits [id number] Auto-Generated Referral * MRI/CT (Routine) - ClosedSpecialtyDiagnoses / ProceduresReferred By Contact Referred To ContactCT IMAGING Diagnoses Interstitial pulmonary disease (HCC) Procedures CT CHEST W IVCON DIAGNOSTIC COMPUTED TOMOGRAPHY THORAX W/CONTRAST Louise Cesar MD [address] [place] [address] Ct Imaging [place] [address] Referral IDStatusReasonStwhigham DateExpiration DateVisits RequestedVisits [id number] Auto-Generated Referral [facility] for referral (narrative)* Outpatient Procedure (Routine) - ClosedSpecialtyDiagnoses / ProceduresReferred By ContactReferred To Contact [facility] Diagnoses Pericarditis, unspecified chronicity, unspecified type Procedures ECHO ECHO TTHRC R-T 2D W/WOM-MODE COMPL SPEC&COLR Louise Joseph MD [address] [place] [address] [place] [address] Referral IDStatus[facility]Washington [facility] DateExpiration DateVisits RequestedVisits [id number] Auto-Generated Referral [facility] for visit Narrative* Outpatient Procedure (Routine) - ClosedSpecialtyDiagnoses / ProceduresReferred By ContactReferred To Contact [facility] Diagnoses Pericarditis, unspecified chronicity, unspecified type Procedures ECHO ECHO TTHRC R-T 2D W/WOM-MODE COMPL SPEC&COLLouise Nation MD [address] [place] [address] [place] [address] Referral IDStatusReasonStart DateExpiration DateVisits RequestedVisits [id number] Auto-Generated Referral / [facility] for visit Narrative* Outpatient Procedure (Routine) - ClosedSpecialtyDiagnoses / ProceduresReferred By ContactReferred To Contact [facility] Diagnoses Diarrhea, unspecified type Procedures COLONOSCOPY DIAGNOSTIC COLONOSCOPY FLX DX W/COLLJ [place] [address] [place] [address] [facility] [place] [address] Referral IDStatus[facility] DateExpiration DateVisits RequestedVisits [id number] Auto-Generated Referral / [facility] for visit Narrative* Diagnostic Procedure Only (Routine) - ClosedSpecialtyDiagnoses / ProceduresReferred By ContactReferred To Contact XR IMAGING Diagnoses Pleural effusion Procedures XR CHEST 1V DECUBITUS RIGHT RADIOLOGIC EXAM CHEST SINGLE VIEW Triston Riggs MD [address] [place] [address] Phone: tel: fax: XR IMAGING [place] [address] Referral IDStatus[facility] DateExpiration DateVisits RequestedVisits [id number] Auto-Generated Referral / [facility] for visit Narrative* Outpatient Procedure (Routine) - ClosedSpecialtyDiagnoses / ProceduresReferred By ContactReferred To Contact [facility] Diagnoses Esophageal dysphagia Procedures EGD DIAGNOSTIC ESOPHAGOGASTRODUODENOSCOPY [place] [address] [place] [address] Phone: tel: fax: [place] [address] Referral IDStatus[facility] DateExpiration DateVisits RequestedVisits [id number] Auto-Generated Referral / [facility] for visit Narrative* Diagnostic Procedure Only (Routine) - ClosedSpecialtyDiagnoses / ProceduresReferred By ContactReferred To Contact US IMAGING Diagnoses Elevated alkaline phosphatase level Procedures US ABD RIGHT UPPER QUADRANT US ABDOMINAL REAL TIME W/IMAGE LIMITED Xiomara Ly, MANAGER CODE.UNIVERSITY SERVICES PROGRAM ASSOCIATE [address] [place] [address] Phone: tel: fax: US IMAGING [place] [address] Referral IDStatusReasonCresson DateExpiration DateVisits RequestedVisits [id number] Auto-Generated Referral / [facility] for visit Narrative* Diagnostic Procedure Only (Routine) - ClosedSpecialtyDiagnoses / ProceduresReferred By ContactReferred To Contact US IMAGING Diagnoses Hepatomegaly Procedures US ELASTOGRAPHY LIVER ULTRASOUND ELASTOGRAPHY [place] [address] [place] [address] Phone: tel: fax: US IMAGING [place] [address] Referral IDStaTr[facility] DateExpiration DateVisits RequestedVisits [id number] Auto-Generated Referral / [facility] for visit Narrative* Diagnostic Procedure Only (Routine) - ClosedSpecialtyDiagnoses / ProceduresReferred By ContactReferred To Contact US IMAGING Diagnoses Other ascites Procedures US DOPPLER COMPLETE DUP-SCAN ARTL KRYSTAL ABDL/PEL/SCROT&/RPR ORGN COM Marlyn Hooper APRN.UNIVERSITY SERVICES PROGRAM ASSOCIATE [address] [place] [address] Phone: tel: fax: US IMAGING [place] [address] Referral IDStatusReasonCresson DateExpiration DateVisits RequestedVisits [id number] Auto-Generated Referral [facility] Assessments DiagnosisPrimary osteoarthritis of right knee - PrimaryStatus post total right knee replacementDiagnosisPrimary osteoarthritis of right knee - PrimaryStatus post total right knee replacementDiagnosis Status post total knee replacement, bilateral Diagnosis Status post total knee replacement, bilateral- Primary History of Present Illness * Karthik Calloway MD - 01/29/2017 12:04 PM EDT Formatting of this note may be different from the original. [facility] [address] [place] [address] [phone] [address] Patient Name: Sav Raymundo Patient Age: 66 [...] note may be different from the original. [facility] [address] [place] [address], [facility] [phone] [address] Patient Name: Sav Raymundo Patient Age: 66 [...] Huff, DO - 07/01/2019 10:05 AM EST [facility] [address] [place] [address] Patient Name: Sav Raymundo Patient Age: 69 [...] KNEE ARTHROPLASTY; Surgeon: Karthik Calloway MD; Location: [facility] OR; Service: ARTHROPLASTY KNEE TOTAL Right 06/25/2016 Procedure: RIGHT TOTAL KNEE ARTHROPLASTY ; Surgeon: Karthik Calloway MD; Location: [facility] OR; Service: BASAL CELL CARCINOMA EXCISION Left [...] file Gets together: Not on file Attends episcopalian service: Not on file Active member of [...] mouth every morning . vit A-vit C-vit F-fnha-aqmwab (EYE VITAMIN AND MINERALS) 7,160-113-100 ymcc-pi-gwhu Tab Take 1 tablet by mouth every [...] with no interval change from most recentimaging. [place] view shows the patella tracks well without [...] expedite correspondence this note was generated by [employer] voice recognition software. Somegrammatical or spelling errors may occur using the system. documented in this encounter* Nena Huff DO - 07/20/2020 2:42 PM EST [facility] [address] [place] [address] Patient Name: Sav Raymundo Patient Age: 70 [...] KNEE ARTHROPLASTY; Surgeon: Karthik Calloway MD; Location: [facility] OR; Service: ARTHROPLASTY KNEE TOTAL Right 06/25/2016 Procedure: RIGHT TOTAL KNEE ARTHROPLASTY ; Surgeon: Karthik Calloway MD; Location: [facility] OR; Service: BASAL CELL CARCINOMA EXCISION Left 11/2014 shoulder ORTHOPEDIC SURGERY Left 2011 knee scope ORTHOPEDIC SURGERY Right hand surgery [...] file Gets together: Not on file Attends episcopalian service: Not on file Active member of [...] mg by mouth daily. vit A-vit C-vit F-efim-koimfd (EYE VITAMIN AND MINERALS) 7,160-113-100 ipme-og-mcbn Tab Take 1 tablet by mouth every [...] with no interval change from most recentimaging. [place] view shows the patella tracks well in [...] expedite correspondence this note was generated by [employer] voice recognition software. Somegrammatical or spelling errors may occur using the system. documented in this encounter Advance Directives No Advanced Directives Records FoundDocuments on File TypeDate RecordedPatient RepresentativeExplanationAdvance Directives and Living WillCode StatusDate ActivatedDate InactivatedCommentsFull Code06/25/2016 1:54 PM 06/29/2016 3:41 PMFull Code08/23/2014 6:45 AM08/25/2014 7:58 PMCode StatusDate ActivatedDate InactivatedCommentsFull Code06/25/2016 1:54 PM06/29/2016 3:41 PMCode StatusDate ActivatedDate InactivatedCommentsFull Code08/23/2014 6:45 AM08/25/2014 7:58 PM Advance Directive Response Recorded Date/ Time Advance Directives No October 19, 2020 11:13am TypeDate RecordedPatient RepresentativeExplanationAdvance Directive(s)11/12/2023 2:37 PMTypeDate RecordedPatient RepresentativeExplanationAdvance Directive(s) 11/12/2023 2:37 PMDate ActivatedDate InactivatedComments12/20/2023 10:18 PMQuestion AnswerCommentsFull Code Order Discussed With:* Patient Date ActivatedDate InactivatedComments12/20/2023 10:18 PM12/26/2023 9:02 PMDate ActivatedDate InactivatedComments12/20/2023 10:18 PM12/26/2023 9:02 PMQuestion AnswerCommentsFull Code Order Discussed With:* Patient Date ActivatedDate InactivatedComments06/25/2016 1:54 PM06/29/2016 3:41 PMDate ActivatedDate InactivatedComments08/23/2014 6:45 AM08/25/2014 7:58 PM Summary Purpose Family History No Family History Records Found Relationship Condition Age at Onset Recorded Date/T christine father Unknown Not SpecifiedDeceasedUnknown Relationship Condition Age at Onset Recorded Date/T christine father Unknown motherDeceasedUnknown Chief Complaint and Reason for Visit Chief Complaint not doing good - per Dr Mariscal Amb Documentation UnknownReason for VisitNausea & vomiting Primary hypertension Subacute cough Dyspnea on effort Murmur Chief Complaint not doing good - per Dr Mariscal Amb Documentation Unknown UnknownReason for VisitNausea & vomiting Primary hypertension Subacute cough Dyspnea on effort Murmur Chief Complaint not doing good - per Dr Mariscal Amb Documentation Unknown Unknown UnknownReason for VisitNausea & vomiting Primary hypertension Subacute cough Dyspnea on effort Murmur Chief Complaint Admit Date URI July 14, 2024 4 :27pm Amb Documentation August 13, 2024 11:31am Amb Documentation September 02, 2024 9:2 6am ear cleaning September 11, 2024 11: 43am Reason for Visit Admit Date Nausea & vomiting July 14, 2024 4 :27pm Viral respiratory illness July 14, 2024 4:27pm Reason for Referral SpecialtyDiagnoses / ProceduresReferred By ContactReferred To ContactCT IMAGING Diagnoses Pleural effusion Lung nodule Procedures CT CHEST WO IVCON DIAGNOSTIC COMPUTED TOMOGRAPHY THORAX W/O CNTRST Louise Cesar MD [address] [place] [address] Ct Imaging [place] [address] Referral IDStatusReasonStart DateExpiration DateVisits RequestedVisits [id number] Request Auto-Generated Referral /[id number] / ProceduresReferred By ContactReferred To ContactCT IMAGING Diagnoses Diarrhea, unspecified type Abdominal pain, unspecified abdominal location Procedures CT ENTEROGRAPHY W IVCON CT ABD & PELVIS W/CONTRAST Sue Murillo MD [address] [place] [address] Ct Imaging [place] [address] Referral IDStatusReasonStart DateExpiration DateVisits RequestedVisits [id number] Auto-Generated Referral /[id number] / ProceduresReferred By ContactReferred To ContactGastroenterology Diagnoses Diarrhea, unspecified type Procedures CONSULT TO GASTROENTEROLOGY OFFICE/OUTPATIENT [facility] 60 MINUTES Steffen Mccarty MD [address] [place] [address] Referral IDStatusReasonStart DateExpiration DateVisits RequestedVisits [id number] PCP Requested Referral [id number] / ProceduresReferred By ContactReferred To ContactRheumatology Diagnoses Pleural effusion Elevated sed rate Elevated C-reactive protein (CRP) Procedures CONSULT TO RHEUM/IMMUN DISEASE OFFICE/OUTPATIENT [facility] 60 MINUTES Tita Landry APRN.UNIVERSITY SERVICES PROGRAM ASSOCIATE [address] [place] [address] Referral IDStatusReasonStart DateExpiration DateVisits RequestedVisits [id number] PCP Requested Referral Additional Source Comments Reason for Visit (unrecogniz ed section and content) ReasonCommentsConsultSpecialtyDiagnoses / ProceduresReferred By ContactReferred To ContactNephrology Diagnoses Elevated BUN Elevated serum creatinine Decreased GFR Procedures CONSULT TO NEPHROLOGY CONSULT TO NEPHROLOGY OFFICE/OUTPATIENT [facility] 60 MINUTES Xiomara Ly, MANAGER CODE.UNIVERSITY SERVICES PROGRAM ASSOCIATE [address] [place] [address] Phone: tel: fax: Referral IDStatusReasonStart DateExpiration DateVisits RequestedVisits [id number] PCP Requested Referral [id number]p Patient Follow-UpSpecialty Diagnoses / ProceduresReferred By ContactReferred To Contact Diagnoses Anasarca Procedures [address] [place] [address] IP/OBS CARE [facility] 75 MINUTES -[id number] [place] [address] Referral IDStatusReasonStart DateExpiration DateVisits RequestedVisits [id number]-mdZswgixYgacunqwykcmwDdh carlito stays swollen but goes to a massage therapist and she gets the swelling to go down/ She 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 lymph drainageFollow-upReasonOnset DateCommentsMedication [id number]easonOnset DateCommentsMedication Refill 08/28/2022ReasonOnset DateCommentsMedication Tfobya6908/30/2022ReasonOnset Date CommentsMedication Oaalwc2102/11/2023ReasonCommentsExternal Referrals/resources ReasonCommentsSchedule SurgeryRight VATS biopsy/ pleurodesis cs=2.5 los =2-3 ReasonCommentsPatient Questionpt notReasonCommentsPre-Op ExamSpecialtyDiagnoses / ProceduresReferred By ContactReferred To ContactADMITTING Diagnoses Bronchiolar disease Procedures THORACENTESIS NEEDLE/CATH PLEURA W/IMAGING THORACENTESIS NEEDLE OR CATHETER ASPIRATION OF THE PLEURAL SPACE W IMAGING GUIDANCE [facility] [address] [place] [address] Referral IDStatus[facility] DateExpiration DateVisits RequestedVisits [id number] NMSpecialtyDiagnoses / Procedures Referred By ContactReferred To ContactMOLECULAR & FUNCTIONAL IMAGING Diagnoses Pleural effusion Encounter for other preprocedural examination Procedures NM CARDIAC PERF STRESS/EXERCISE MYOCARDIAL SPECT MULTIPLE STUDIES Ronaldo Flood MD, PhD [address] [facility] [address] [place] [address] [facility] [address] [place] [address] Referral [facility]Status[facility] DateExpiration DateVisits RequestedVisits [id number] Auto-Generated Referral /[id number] and Confirm AppointmentsReasonComments EffusionReasonCommentsHospital Follow UpReasonCommentsReceived Outside Medical RecordsReasonCommentsEstablished Patient Follow-UpReasonCommentsBreathing ProblemPleural Effusion on the rightMedication Follow-upReasonCommentsPatient UpdatePleurex outputReasonCommentsPost Dc Program Call - Needs AttnReason CommentsPatient UpdateReasonCommentsSpirometrySpecialtyDiagnoses / Procedures Referred By ContactReferred To [facility] Diagnoses Chronic cough Pleural effusion Procedures NITRIC OXIDE, EXHALED NITRIC OXIDE GAS DETERMINATION Katerina Bravo, MANAGER CODE.UNIVERSITY SERVICES PROGRAM ASSOCIATE [address] [place] [address] [address] Referral IDStatusReasonStart DateExpiration DateVisits RequestedVisits [id number] Auto-Generated Referral /[id number] / ProceduresReferred By ContactReferred To [facility] Diagnoses Chronic cough Pleural effusion Procedures SPIROMETRY WITH DILATOR IF OBSTRUCTED BRNCDILAT RSPSE SPMTRY PRE&POST-BRNCDILAT ADMN Katerina Bravo, MANAGER CODE.UNIVERSITY SERVICES PROGRAM ASSOCIATE [address] [place] [address] [address] Referral IDStatusReasonStart DateExpiration DateVisits RequestedVisits [id number] Auto-Generated Referral /[id number] / ProceduresReferred By ContactReferred To [facility] Diagnoses Chronic cough Pleural effusion Interstitial pulmonary disease (HCC) Procedures LUNG DIFFUSION CAPACITY (DLCO) DIFFUSING CAPACITY Louise Cesar MD [address] [place] [address] [address] [place] [address] [id number] Referral IDStatusReasonStart DateExpiration DateVisits RequestedVisits [id number] Auto-Generated Referral [id number] / ProceduresReferred By ContactReferr To [facility] Diagnoses Pleural effusion Interstitial pulmonary disease (HCC) Procedures LUNG VOLUMES Arsenio, [place], [place] [address] [place] [address] [address] [place] [address] [place] [address] Referral IDStatusReasonStart DateExpiration DateVisits RequestedVisits [id number] Auto-Generated Referral [id number]voNicpcgeqx / ProceduresReferred By ContactReferred To ContactCT IMAGING Diagnoses Interstitial pulmonary disease (HCC) Procedures CT CHEST W IVCON DIAGNOSTIC COMPUTED TOMOGRAPHY THORAX W/CONTRAST Louise Cesar MD [address] [place] [address] Ct Imaging [place] [address] Referral IDStatusReasonStart DateExpiration DateVisits RequestedVisits [id number] Auto-Generated Referral [id number] pleural effusionSpecialtyDiagnoses / ProceduresReferred By ContactReferred To ContactRheumatology Diagnoses Pleural effusion Elevated sed rate Elevated C-reactive protein (CRP) Procedures CONSULT TO RHEUM/IMMUN DISEASE OFFICE/OUTPATIENT [facility] 60 MINUTES Tita Landry, LETICIA.UNIVERSITY SERVICES PROGRAM ASSOCIATE [address] [place] [address] Referral IDStatusReasonStart DateExpiration DateVisits RequestedVisits [id number] PCP Requested Referral [id number] CTSpecialtyDiagnoses / Procedures Referred By ContactReferred To ContactCT IMAGING Diagnoses Diarrhea, unspecified type Abdominal pain, unspecified abdominal location Procedures CT ENTEROGRAPHY W IVCON CT ABD & PELVIS W/CONTRAST Sue Murillo MD [address] [place] [address] Ct Imaging [place] [address] Referral IDStatusReasonStart DateExpiration DateVisits RequestedVisits [id number] Auto-Generated Referral [id number]yagpgrzVlmnpuggz / Procedures Referred By ContactReferred To ContactGastroenterology Diagnoses Diarrhea, unspecified type Procedures CONSULT TO GASTROENTEROLOGY OFFICE/OUTPATIENT [facility] 60 MINUTES Steffen Mccarty MD [id number] Referral IDStatusReasonStart DateExpiration DateVisits RequestedVisits [id number] PCP Requested Referral [id number] ProblemFollow upReasonComments Follow UpReasonCommentsEstablished PatientDiarrhea f/uReasonCommentsEffusion Recurrent pleural on rightReasonCommentsAppointmentReasonOnset DateComments Medication Amuvnl5207/08/2024ReasonOnset DateCommentsMedication Rgrtex9007/10/2024 ReasonCommentsOrdersReasonCommentsEye ExamReasonCommentsPatient QuestionReason CommentsPatient RequestReasonCommentsEstablished PatientReasonOnset DateComments Refill Dgtskpv0308/21/2024ReasonCommentsEstablished PatientDiarrhea 3 mos follow upReasonCommentsSkin CheckReasonCommentsAppointmentThoracentesisReasonComments Lab & Test ResultsHospital Follow UpReasonCommentsAppointment ConfirmationReason CommentsRadio Gen RMPReasonCommentsEstablished PatientAbdominal painAbdominal PainReasonCommentsRefill RequestSpecialtyDiagnoses / ProceduresReferred By ContactReferred To ContactADMITTING Diagnoses 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] Procedures THORACENTESIS NEEDLE/CATH PLEURA W/IMAGING THORACENTESIS NEEDLE OR CATHETER ASPIRATION OF THE PLEURAL SPACE W IMAGING GUIDANCE Admitting [address] [place] [address] Referral IDStatusReasonStart DateExpiration DateVisits RequestedVisits [id number] Main S2CetinjVccjgatnNvcibs UpReason CommentsRadio Gen CG4RzpwciDgatpbbtBsc PatientReasonCommentsFollow UpShortness of BreathReasonCommentsRadio Gen Q88NzrhghPkzbuugcZknmquuTbwnrkAmcrptmrbykmeulg alkaline phosphataseSpecialtyDiagnoses / ProceduresReferred By ContactReferred To Contact Diagnoses Elevated alkaline phosphatase level Procedures CONSULT TO HEPATOLOGY OFFICE/OUTPATIENT [facility] 60 MINUTES Xiomara Ly, MANAGER CODE.UNIVERSITY SERVICES PROGRAM ASSOCIATE [address] [place] [address] Phone: tel: fax: Referral IDStatusReasonStart DateExpiration DateVisits RequestedVisits [id number] PCP Requested Referral /[id number] UpSpecialtyDiagnoses / ProceduresReferred By ContactReferred To ContactNephrology Diagnoses Elevated serum creatinine Procedures OFFICE/OUTPATIENT [facility] MDM 60 MINUTES Marlyn Hooper, MANAGER CODE.UNIVERSITY SERVICES PROGRAM ASSOCIATE [address] [place] [address] Phone: tel: fax: Referral IDStatusReasonStart DateExpiration DateVisits RequestedVisits [id number] PCP Requested Referral /[id number] ProblemPT is here today with his spouse for wound distal Lt 2nd toe, he states it is painful for him. First noticed this Saturday evening. PCP rx'd augmentin, per redness has improved.SS: 10.5-11 ReasonCommentsWound CheckEstablished patient presents today for 7-10 day wound fuv of the left 2nd toe. Patient states finished augmentin on 03/20/25. Patient has been using mupirocin ointment and band- aid Care Teams (unrecognized sec tion and content) Team MemberRelationshipSpecialtyStart DateEnd Yuli Mariscal DO [address] [place] [address] PCP - GeneralInternal Medicine06/29/14 Yuli Mariscal DO [address] [place] [address] Internal Medicine06/29/14 Karthik Calloway MD Consulting PhysicianOrthopedic Surgery01/28/17Team MemberRelationshipSpecialty Start DateEnd Date Yuli Mariscal, DO [address] [place] [address] [place] [address] PCP - GeneralInternal Medicine06/29/14 Yuli Mariscal, DO [address] [facility] [place] [address] [place] [address] Internal Medicine06/29/14 Karthik Calloway MD [address] [facility] [place] [address] [place] [address] Consulting PhysicianOrthopedic Surgery01/28/17Team MemberRelationshipSpecialty Start DateEnd Date Yuli Mariscal, DO [address] [facility] [place] [address] [place] [address] PCP - GeneralInternal Medicine06/29/14 Yuli Mariscal, DO [address] [facility] [place] [address] [place] [address] Internal Medicine06/29/14 Karthik Calloway MD [address] [facility] [place] [address] [place] [address] Consulting PhysicianOrthopedic Surgery01/28/17Team MemberRelationshipSpecialty Start DateEnd Date Yuli Mariscal, DO [address] [facility] [place] [address] PCP - GeneralInternal Medicine06/29/14 Yuli Mariscal, DO [address] [facility] [place] [address] [place] [address] Internal Medicine06/29/14 Karthik Calloway MD [address] [facility] [place] [address] [place] [address] Consulting PhysicianOrthopedic Surgery01/28/17Team MemberRelationshipSpecialty Start DateEnd Date Yuli Mariscal, DO [address] [facility] [place] [address] PCP - GeneralInternal Medicine06/29/14 Yuli Mariscal, DO [address] [facility] [place] [address] Internal Medicine06/29/14 Karthik Calloway MD [address] [facility] [place] [address] Consulting PhysicianOrthopedic Surgery01/28/17Team MemberRelationshipSpecialty Start DateEnd Date Yuli Mariscal DO [address] [facility] [address] PCP - GeneralInternal Medicine06/29/14 Yuli Mariscal DO [address] [facility] [place] [address] Internal Medicine06/29/14 Karthik Calloway MD [address] [facility] [place] [address] Consulting PhysicianOrthopedic Surgery01/28/17Team MemberRelationshipSpecialty Start DateEnd Date Yuli Mariscal DO [address] [facility] [place] [address] PCP - GeneralInternal Medicine06/29/14 Yuli Mariscal, DO [address] [facility] [address] Internal Medicine06/29/14 Karthik Calloway MD [address] [facility] [place] [address] Consulting PhysicianOrthopedic Surgery01/28/17Team MemberRelationshipSpecialty Start DateEnd Date Yuli Mariscal, DO [address] [facility] [place] [address] PCP - GeneralInternal Medicine06/29/14 Yuli Mariscal DO [address] [facility] [address] Internal Medicine06/29/14 Karthik Calloway MD [address] [facility] [address] Consulting PhysicianOrthopedic Surgery01/28/17Team MemberRelationshipSpecialty Start DateEnd Date Yuli Mariscal DO [address] [facility] [address] PCP - GeneralInternal Medicine06/29/14 Yuli Mariscal DO [address] [facility] [address] Internal Medicine06/29/14 Karthik Calloway MD [address] [place] [address] [place] [address] Consulting PhysicianOrthopedic Surgery01/28/17 Team Status: Inactive Member Role Status Dates [...] Team Status: Inactive Member Role Status Dates Sintia Clemente DO Attending Provider Active St art: September 04, 2023 End: September 04, 2023 Team Status: Inactive Member Role Status Dates Sintia Clemente DO Attending Provider Active St art: September 05, 2023 End: September 05, 2023 Team Status: Active Member Role Status Dates Yuli Mariscal DO Attending Provider Active Sta rt: September 11, 2023 Team Status: Active Member Role Status Dates Yuli Mariscal DO Attending Provider Active Sta rt: October 01, 2023 Team Status: Inactive Member Role Status Dates Sintia Clemente DO Attending Provider Active St art: October 02, 2023 End: October 02, 2023Team MemberRelationshipSpecialtyStart DateEnd Date Yuli Mariscal DO [address] [place] [address] PCP - GeneralInternal Medicine12/07/20 Jere Sales [address] [address] ReferringGastroenterology12/05/20Team MemberRelationshipSpecialtyStart DateEnd Date Yuli Mariscal DO [address] [place] [address] PCP - GeneralInternal Medicine12/07/20 Jere Sales [address] [place] [address] ReferringGastroenterology12/05/20 Sintia Clemente DO [address] [place] [address] Internal Medicine10/16/23Team MemberRelationshipSpecialtyStart DateEnd Date Yuli Mariscal DO [address] [place] [address] PCP - GeneralInternal Medicine12/07/20 Jere Sales [address] [address] ReferringGastroenterology12/05/20 Sintia Clemente DO [address] [facility] [place] [address] Internal Medicine10/16/23Team MemberRelationshipSpecialtyStart DateEnd Date Yuli Mariscal DO [address] [facility] [place] [address] PCP - GeneralInternal Medicine12/07/20 Jere Sales [address] [place] [address] ReferringGastroenterology12/05/20 Sintia Clemente DO [address] [facility] [place] [address] Internal Medicine10/16/23Team MemberRelationshipSpecialtyStart DateEnd Date Yuli Mariscal DO [address] [facility] [place] [address] PCP - GeneralInternal Medicine12/07/20 Jere Sales [address] [place] [address] ReferringGastroenterology12/05/20 Sintia Clemente DO [address] [facility] [place] [address] Internal Medicine10/16/23Team MemberRelationshipSpecialtyStart DateEnd Date Yuli Mariscal DO [address] [facility] [place] [address] PCP - GeneralInternal Medicine12/07/20 Jere Sales [address] [place] [address] ReferringGastroenterology12/05/20 Sintia Clemente DO [address] [facility] [place] [address] Internal Medicine10/16/23Team MemberRelationshipSpecialtyStart DateEnd Date Yuli Mariscal DO [address] [facility] [place] [address] PCP - GeneralInternal Medicine12/07/20 Jere Sales [address] [address] ReferringGastroenterology12/05/20 Sintia Clemente DO [address] [facility] [place] [address] Internal Medicine10/16/23Team MemberRelationshipSpecialtyStart DateEnd Date Yuli Mariscal DO [address] [facility] [place] [address] PCP - GeneralInternal Medicine12/07/20 Jere Sales [address] [address] ReferringGastroenterology12/05/20 Sintia Clemente DO [address] [facility] [place] [address] Internal Medicine10/16/23Team MemberRelationshipSpecialtyStart DateEnd Date Yuli Mariscal, [address] [facility] [place] [address] PCP - GeneralInternal Medicine12/07/20 Jere Sales [address] [place] [address] ReferringGastroenterology12/05/20 Sintia Clemente DO [address] [facility] [place] [address] Internal Medicine10/16/23Team MemberRelationshipSpecialtyStart DateEnd Date Yuli Mariscal DO [address] [facility] [place] [address] PCP - GeneralInternal Medicine12/07/20 Jere Sales [address] [place] [address] ReferringGastroenterology12/05/20 Sintia Clemente DO [address] [facility] [place] [address] Internal Medicine10/16/23Team MemberRelationshipSpecialtyStart DateEnd Date Yuli Mariscal DO [address] [facility] [place] [address] PCP - GeneralInternal Medicine12/07/20 Jere Sales [address] [place] [address] ReferringGastroenterology12/05/20 Sintia Clemente DO [address] [facility] [place] [address] Internal Medicine10/16/23Team MemberRelationshipSpecialtyStart DateEnd Date Yuli Mariscal, [address] [facility] [place] [address] PCP - GeneralInternal Medicine12/07/20 Jere Sales [address] [facility] [address] [place] [address] ReferringGastroenterology12/05/20 Sintia Clemente DO [address] [facility] [place] [address] Internal Medicine10/16/23Team MemberRelationshipSpecialtyStart DateEnd Date Yuli Mariscal, [address] [facility] [place] [address] PCP - GeneralInternal Medicine12/07/20 Jere Sales [address] [facility] [address] [place] [address] ReferringGastroenterology12/05/20 Sintia Clemente DO [address] [facility] [place] [address] Internal Medicine10/16/23Team MemberRelationshipSpecialtyStart DateEnd Date Yuli Mariscal DO [address] [facility] [place] [address] PCP - GeneralInternal Medicine12/07/20 Jere Sales [address] [place] [address] ReferringGastroenterology12/05/20 Sintia Clemente DO [address] [facility] [place] [address] Internal Medicine10/16/23Team MemberRelationshipSpecialtyStart DateEnd Date Yuli Mariscal DO [address] [facility] [place] [address] PCP - GeneralInternal Medicine12/07/20 Jere Sales [address] [place] [address] ReferringGastroenterology12/05/20 Sintia Clemente DO [address] [facility] [place] [address] Internal Medicine10/16/23Team MemberRelationshipSpecialtyStart End Date Yuli Mariscal DO [address] [facility] [place] [address] PCP - GeneralInternal Medicine12/07/20 Jere Sales [address] [place] [address] ReferringGastroenterology12/05/20 Sintia Clemente DO [address] [facility] [place] [address] Internal Medicine10/16/23Team MemberRelationshipSpecialtyStart DateEnd Date Yuli Mariscal DO [address] [facility] [place] [address] PCP - GeneralInternal Medicine12/07/20 Jere Sales [address] [facility] [address] [place] [address] ReferringGastroenterology12/05/20 Sintia Clemente DO [address] [facility] [place] [address] Internal Medicine10/16/23Team MemberRelationshipSpecialtyStwhigham DateEnd Date Yuli Mariscal DO [address] [facility] [place] [address] PCP - GeneralInternal Medicine12/07/20 Jere Sales [address] [facility] [address] [place] [address] ReferringGastroenterology12/05/20 Sintia Clemente DO [address] [facility] [place] [address] Internal Medicine10/16/23Team MemberRelationshipSpecialtyStart DateEnd Date Yuli Mariscal DO [address] [facility] [place] [address] PCP - GeneralInternal Medicine12/07/20 Jere Sales [address] [facility] [address] [place] [address] ReferringGastroenterology12/05/20 Sintia Clemente DO [address] [facility] [place] [address] Internal Medicine10/16/23Team MemberRelationshipSpecialtyStart DateEnd Yuli Howell DO [address] [facility] [place] [address] PCP - GeneralInternal Medicine12/07/20 Jere Sales [address] [place] [address] ReferringGastroenterology12/05/20 Sintia Clemente DO [address] [facility] [place] [address] Internal Medicine10/16/23Team MemberRelationshipSpecialtyStart DateEnd Yuli Howell DO [address] [facility] [place] [address] PCP - GeneralInternal Medicine12/07/20 Jere Sales [address] [place] [address] ReferringGastroenterology12/05/20 Sintia Clemente DO [address] [facility] [place] [address] Internal Medicine10/16/23Team MemberRelationshipSpecialtyStart DateEnd Yuli Howell DO [address] [facility] [place] [address] PCP - GeneralInternal Medicine12/07/20 Jere Sales [address] [place] [address] ReferringGastroenterology12/05/20 Sintia Clemente DO [address] [facility] [place] [address] Internal Medicine10/16/23Team MemberRelationshipSpecialtyStart DateEnd Date Yuli Mariscal DO [address] [facility] [place] [address] PCP - GeneralInternal Medicine12/07/20 Jere Sales [address] [address] ReferringGastroenterology12/05/20 Sintia Clemente DO [address] [facility] [place] [address] Internal Medicine10/16/23Team MemberRelationshipSpecialtyStart DateEnd Date Yuli Mariscal DO [address] [facility] [place] [address] PCP - GeneralInternal Medicine12/07/20 Jere Sales [address] [address] ReferringGastroenterology12/05/20 Sintia Clemente DO [address] [facility] [place] [address] Internal Medicine10/16/23Team MemberRelationshipSpecialtyStart DateEnd Date Yuli Mariscal DO [address] [facility] [place] [address] PCP - GeneralInternal Medicine12/07/20 Jere Sales [address] [place] [address] ReferringGastroenterology12/05/20 Sintia Clemente DO [address] [facility] [place] [address] Internal Medicine10/16/23Team MemberRelationshipSpecialtyStart DateEnd Date Yuli Mariscal DO [address] [facility] [place] [address] PCP - GeneralInternal Medicine12/07/20 Jere Sales [address] [place] [address] ReferringGastroenterology12/05/20 Sintia Clemente DO [address] [facility] [place] [address] Internal Medicine10/16/23Team MemberRelationshipSpecialtyStart DateEnd Date Yuli Mariscal DO [address] [facility] [place] [address] PCP - GeneralInternal Medicine12/07/20 Jere Sales [address] [place] [address] ReferringGastroenterology12/05/20 Sintia Clemente DO [address] [facility] [place] [address] Internal Medicine10/16/23Team MemberRelationshipSpecialtyStart DateEnd Date Yuli Mariscal DO [address] [facility] [place] [address] PCP - GeneralInternal Medicine12/07/20 Jere Sales [address] [place] [address] ReferringGastroenterology12/05/20 Sintia Clemente DO [address] [facility] [place] [address] Internal Medicine10/16/23Team MemberRelationshipSpecialtyStart DateEnd Date Yuli Mariscal DO [address] [facility] [place] [address] PCP - GeneralInternal Medicine12/07/20 Jere Sales [address] [place] [address] ReferringGastroenterology12/05/20 iSntia Clemente DO [address] [facility] [place] [address] Internal Medicine10/16/23Team MemberRelationshipSpecialtyStart DateEnd Date Yuli Mariscal DO [address] [facility] [place] [address] PCP - GeneralInternal Medicine12/07/20 Jere Sales [address] [place] [address] ReferringGastroenterology12/05/20 Sintia Clemente DO [address] [facility] [place] [address] Internal Medicine10/16/23Team MemberRelationshipSpecialtyStart DateEnd Date Yuli Mariscal DO [address] [facility] [place] [address] PCP - GeneralInternal Medicine12/07/20 Jere Sales [address] [address] ReferringGastroenterology12/05/20 Sintia Clemente DO [address] [facility] [place] [address] Internal Medicine10/16/23Team MemberRelationshipSpecialtyStart DateEnd Date Yuli Mariscal DO [address] [facility] [place] [address] PCP - GeneralInternal Medicine12/07/20 Jere Sales [address] [address] ReferringGastroenterology12/05/20 Sintia Clemente DO [address] [facility] [place] [address] Internal Medicine10/16/23Team MemberRelationshipSpecialtyStart DateEnd Date Yuli Mariscal DO [address] [facility] [place] [address] PCP - GeneralInternal Medicine12/07/20 Jere Sales [address] [place] [address] ReferringGastroenterology12/05/20 Sintia Clemente DO [address] [facility] [place] [address] Internal Medicine10/16/23Team MemberRelationshipSpecialtyStart DateEnd Date Yuli aMriscal DO [address] [facility] [place] [address] PCP - GeneralInternal Medicine12/07/20 Jere Sales [address] [address] ReferringGastroenterology12/05/20 Sintia Clemente DO [address] [facility] [place] [address] Internal Medicine10/16/23Team MemberRelationshipSpecialtyStart DateEnd Date Yuli Mariscal DO [address] [facility] [place] [address] PCP - GeneralInternal Medicine12/07/20 Jere Sales [address] [address] ReferringGastroenterology12/05/20 Sintia Clemente DO [address] [facility] [place] [address] Internal Medicine10/16/23Team MemberRelationshipSpecialtyStart DateEnd Date Yuli Mariscal DO [address] [facility] [place] [address] PCP - GeneralInternal Medicine12/07/20 Jere Sales [address] [place] [address] ReferringGastroenterology12/05/20 Sintia Clemente DO [address] [facility] [place] [address] Internal Medicine10/16/23Team MemberRelationshipSpecialtyStart DateEnd Date Yuli Mariscal DO [address] [facility] [place] [address] PCP - GeneralInternal Medicine12/07/20 Jere Sales [address] [place] [address] ReferringGastroenterology12/05/20 Sintia Clemente DO [address] [facility] [place] [address] Internal Medicine10/16/23Team MemberRelationshipSpecialtyStart DateEnd Date Yuli Mariscal DO [address] [facility] [place] [address] PCP - GeneralInternal Medicine12/07/20 Jere Sales [address] [place] [address] ReferringGastroenterology12/05/20 Sintia Clemente DO [address] [facility] [place] [address] Internal Medicine10/16/23Team MemberRelationshipSpecialtyStart DateEnd Date Yuli Mariscal DO [address] [facility] [place] [address] PCP - GeneralInternal Medicine12/07/20 Jere Sales [address] [facility] [address] [place] [address] ReferringGastroenterology12/05/20 Sintia Clemente DO [address] [facility] [place] [address] Internal Medicine10/16/23Team MemberRelationshipSpecialtyStart DateEnd Date Yuli Mariscal DO [address] [facility] [place] [address] PCP - GeneralInternal Medicine12/07/20 Jere Sales [address] [facility] [address] [place] [address] ReferringGastroenterology12/05/20 Sintia Clemente DO [address] [facility] [place] [address] Internal Medicine10/16/23Team MemberRelationshipSpecialtyStart DateEnd Date Yuli Mariscal DO [address] [facility] [place] [address] PCP - GeneralInternal Medicine12/07/20 Jeer Sales [address] [place] [address] ReferringGastroenterology12/05/20 Sintia Clemente DO [address] [facility] [place] [address] Internal Medicine10/16/23Team MemberRelationshipSpecialtyStart DateEnd Date Yuli Mariscal, [address] [facility] [place] [address] PCP - GeneralInternal Medicine12/07/20 Jere Sales [address] [place] [address] ReferringGastroenterology12/05/20 Sintia Clemente DO [address] [facility] [place] [address] Internal Medicine10/16/23Team MemberRelationshipSpecialtyStart DateEnd Date Yuli Mariscal, [address] [facility] [place] [address] PCP - GeneralInternal Medicine12/07/20 [facility] Jere Cynthia [address] [place] [address] ReferringGastroenterology12/05/20 Sintia Clemente DO [address] [facility] [place] [address] Internal Medicine10/16/23Team MemberRelationshipSpecialtyStart DateEnd Date Yuli Mariscal DO [address] [facility] [place] [address] PCP - GeneralInternal Medicine12/07/20 Jere Sales MD [address] [place] [address] ReferringGastroenterology12/05/20 Sintia Clemente DO [address] [facility] [place] [address] Internal Medicine10/16/23Team MemberRelationshipSpecialtyStart DateEnd Date Yuli Mariscal DO [address] [facility] [address] PCP - GeneralInternal Medicine06/29/14 Yuli Mariscal DO [address] [facility] [address] Internal Medicine06/29/14 Karthik Calloway MD [address] [place] [address] Consulting PhysicianOrthopedic Surgery01/28/17Team MemberRelationshipSpecialty Start DateEnd Date Yuli Mariscal DO [address] [facility] [place] [address] PCP - GeneralInternal Medicine12/07/20 Jere Sales MD [address] [place] [address] ReferringGastroenterology12/05/20 Sintia Clemente DO [address] [facility] [place] [address] Internal Medicine10/16/23Team MemberRelationshipSpecialtyStart DateEnd Date Yuli Mariscal DO [address] [facility] [place] [address] PCP - GeneralInternal Medicine12/07/20 Jere Sales MD [address] [place] [address] ReferringGastroenterology12/05/20 Sintia Clemente DO [address] [facility] [place] [address] Internal Medicine10/16/23Team MemberRelationshipSpecialtyStart DateEnd Date Yuli Mariscal DO [address] [facility] [place] [address] PCP - GeneralInternal Medicine12/07/20 Jere Sales MD [address] [address] ReferringGastroenterology12/05/20 Sintia Clemente DO [address] [facility] [place] [address] Internal Medicine10/16/23Team MemberRelationshipSpecialtyStart DateEnd Date Yuli Mariscal DO [address] [facility] [place] [address] PCP - GeneralInternal Medicine12/07/20 Jere Sales MD [address] [address] ReferringGastroenterology12/05/20 Sintia Clemente DO [address] [facility] [place] [address] Internal Medicine10/16/23Team MemberRelationshipSpecialtyStart DateEnd Date Yuli Mariscal DO [address] [facility] [place] [address] PCP - GeneralInternal Medicine12/07/20 Jere Sales MD [address] [facility] [address] [place] [address] ReferringGastroenterology12/05/20 Sintia Clemente DO [address] [facility] [place] [address] Internal Medicine10/16/23Team MemberRelationshipSpecialtyStart DateEnd Date Yuli Mariscal DO [address] [facility] [place] [address] PCP - GeneralInternal Medicine12/07/20 Jere Sales MD [address] [facility] [address] [place] [address] ReferringGastroenterology12/05/20 Sintia Clemente DO [address] [facility] [place] [address] Internal Medicine10/16/23Team MemberRelationshipSpecialtyStart DateEnd Date Yuli Mariscal DO [address] [facility] [place] [address] PCP - GeneralInternal Medicine12/07/20 Jere Sales MD [address] [address] ReferringGastroenterology12/05/20 Sintia Clemente DO [address] [facility] [place] [address] Internal Medicine10/16/23Team MemberRelationshipSpecialtyStart DateEnd Date Yuli Mariscal DO [address] [facility] [place] [address] PCP - GeneralInternal Medicine12/07/20 Jere Sales MD [address] [address] ReferringGastroenterology12/05/20 Sintia Clemente DO [address] [facility] [place] [address] Internal Medicine10/16/23Team MemberRelationshipSpecialtyStart DateEnd Date Yuli Mariscal DO [address] [facility] [place] [address] PCP - GeneralInternal Medicine12/07/20 Jere Sales MD [address] [address] ReferringGastroenterology12/05/20 Sintia Clemente DO [address] [facility] [place] [address] Internal Medicine10/16/23Team MemberRelationshipSpecialtyStart DateEnd Date Yuli Mariscal DO [address] [facility] [place] [address] PCP - GeneralInternal Medicine12/07/20 Jere Sales MD [address] [address] ReferringGastroenterology12/05/20 Sintia Clemente DO [address] [facility] [place] [address] Internal Medicine10/16/23Team MemberRelationshipSpecialtyStart DateEnd Date Yuli Mariscal DO [address] [facility] [place] [address] PCP - GeneralInternal Medicine12/07/20 Jere Sales MD [address] [address] ReferringGastroenterology12/05/20 Sintia Clemente DO [address] [facility] [place] [address] Internal Medicine10/16/23Team MemberRelationshipSpecialtyStart DateEnd Date Yuli Mariscal DO [address] [facility] [place] [address] PCP - GeneralInternal Medicine12/07/20 Jere Sales MD [address] [address] ReferringGastroenterology12/05/20 Sintia Clemente DO [address] [facility] [place] [address] Internal Medicine10/16/23Team MemberRelationshipSpecialtyStart DateEnd Date Yuli Mariscal DO [address] [facility] [place] [address] PCP - GeneralInternal Medicine12/07/20 Jere Sales MD [address] [place] [address] ReferringGastroenterology12/05/20 Sintia Clemente DO [address] [facility] [place] [address] Internal Medicine10/16/23Team MemberRelationshipSpecialtyStart DateEnd Date Yuli Mariscal DO [address] [place] [address] PCP - GeneralInternal Medicine12/07/20 Jere Sales MD [address] [address] ReferringGastroenterology12/05/20 Sintia Clemente DO [address] [place] [address] Internal Medicine10/16/23 Team Status: Active Member Role Status Dates [...] , Primary Care Provider Active Start: August 13, 2024 Joselin Berman CMAAttending ProviderActiveStart: August 13, 2024 Team Status: Active Member Role Status Dates Yuli Mariscal , Primary Care Provider Active Start: August 24, 2024 Sue Murillo MDAttending ProviderActiveStart: August 24, 2024 Team Status: Active Member Role Status Dates Yuli Mariscal DO Primary Care Provide r, Attending Provider Active Start: August 28, 2024 Team Status: Active Member Role Status Dates Yuli Mariscal , Primary Care Provider Active Start: August 30, 2024 RAJEEV Miller-CAttending ProviderActiveStart: August 30, 2024 Team Status: Active Member Role Status Dates Yuli Mariscal DO Primary Care Provide r, Attending Provider Active Start: August 31, 2024 Team Status: Active Member Role Status Dates Yuli Mariscal , Primary Care Provider Active Start: September 02, 2024 Joselin Berman CMAAttending ProviderActiveStart: September 02, 2024 Team Status: Active Member Role Status Dates Yuli Mariscal DO Primary Care Provide r, Attending Provider Active Start: September 03, 2024 Team Status: Inactive Member Role Status Dates Yuli Mariscal , DO Primary Care Provide r, Attending Provider Active Start: September 11, 2024 End: September 11, 2024Team MemberRelationshipSpecialtyStart DateEnd Date Yuli Mariscal DO [address] [facility] [place] [address] PCP - GeneralInternal Medicine12/07/20 Jere Sales MD [address] [address] ReferringGastroenterology12/05/20 Sintia Clemente DO [address] [facility] [place] [address] Internal Medicine10/16/23Team MemberRelationshipSpecialtyStart DateEnd Date Yuli Mariscal DO [address] [facility] [place] [address] PCP - GeneralInternal Medicine12/07/20 Jere Sales MD [address] [address] ReferringGastroenterology12/05/20 Sintia Clemente DO [address] [facility] [place] [address] Internal Medicine10/16/23Team MemberRelationshipSpecialtyStart DateEnd Date Yuli Mariscal DO [address] [facility] [place] [address] PCP - GeneralInternal Medicine12/07/20 Jere Sales MD [address] [place] [address] ReferringGastroenterology12/05/20 Sintia Clemente DO [address] [facility] [place] [address] Internal Medicine10/16/23Team MemberRelationshipSpecialtyStart DateEnd Date Yuli Mariscal DO [address] [facility] [place] [address] PCP - GeneralInternal Medicine12/07/20 Jere Sales MD [address] [address] ReferringGastroenterology12/05/20 Sintia Clemente DO [address] [facility] [place] [address] Internal Medicine10/16/23Team MemberRelationshipSpecialtyStart DateEnd Date Yuli Mariscal DO [address] [facility] [place] [address] PCP - GeneralInternal Medicine12/07/20 Jere Sales MD [address] [address] ReferringGastroenterology12/05/20 Sintia Clemente DO [address] [facility] [place] [address] Internal Medicine10/16/23Team MemberRelationshipSpecialtyStart DateYuli Estrada DO [address] [facility] [place] [address] PCP - GeneralInternal Medicine12/07/20 Jere Sales MD [address] [address] ReferringGastroenterology12/05/20 Sintia Clemente DO [address] [facility] [place] [address] Internal Medicine10/16/23Team MemberRelationshipSpecialtyStart DateEnd Yuli Howell DO [address] [facility] [place] [address] PCP - GeneralInternal Medicine12/07/20 Jere Sales MD [address] [address] ReferringGastroenterology12/05/20 Sintia Clemente DO [address] [facility] [place] [address] Internal Medicine10/16/23Team MemberRelationshipSpecialtyStart DateEnd Date Yuli Mariscal DO [address] [place] [address] PCP - GeneralInternal Medicine12/07/20 Jere Sales MD [address] [address] ReferringGastroenterology12/05/20 Sintia Clemente DO [address] [facility] [place] [address] Internal Medicine10/16/23Team MemberRelationshipSpecialtyStart [place] [address] [place] [address] PCP - GeneralFamily Medicine12/29/23 Jere Sales MD [address] [address] ReferringGastroenterology12/05/20 Sintia Clemente DO [address] [facility] [place] [address] Internal Medicine10/16/23Team MemberRelationshipSpecialtyStart [place] [address] [place] [address] PCP - GeneralFamily Medicine12/29/23 Jere Sales MD [address] [place] [address] ReferringGastroenterology12/05/20 Sintia Clemente DO [address] [facility] [place] [address] Internal Medicine10/16/23Team MemberRelationshipSpecialtyStart [place] [address] [place] [address] PCP - GeneralFamily Medicine12/29/23 Jere Sales MD [address] [place] [address] ReferringGastroenterology12/05/20 Sintia Clemente DO [address] [facility] [place] [address] Internal Medicine10/16/23Team MemberRelationshipSpecialtyStart [place] [address] [place] [address] PCP - GeneralFamily Medicine12/29/23 Jere Sales MD [address] [place] [address] ReferringGastroenterology12/05/20 Sintia Clemente DO [address] [facility] [place] [address] Internal Medicine10/16/23Team MemberRelationshipSpecialtyStart [place] [address] [place] [address] PCP - GeneralFamily Medicine12/29/23 Jere Sales MD [address] [address] ReferringGastroenterology12/05/20 Sintia Clemente DO [address] [facility] [place] [address] Internal Medicine10/16/23Team MemberRelationshipSpecialtyStart [place] [address] [place] [address] PCP - GeneralFamily Medicine12/29/23 Jere Sales MD [address] [place] [address] ReferringGastroenterology12/05/20 Sintia Clemente DO [address] [facility] [place] [address] Internal Medicine10/16/23Team MemberRelationshipSpecialtyStart [place] [address] [place] [address] PCP - GeneralFamily Medicine12/29/23 Jere Sales MD [address] [address] ReferringGastroenterology12/05/20 Sintia Clemente DO [address] [facility] [place] [address] Internal Medicine10/16/23Team MemberRelationshipSpecialtyStart [place] [address] [place] [address] PCP - GeneralFamily Medicine12/29/23 Jere Sales MD [address] [place] [address] ReferringGastroenterology12/05/20 Sintia Clemente DO [address] [facility] [place] [address] Internal Medicine10/16/23Team MemberRelationshipSpecialtyStart [place] [address] [place] [address] PCP - GeneralFamily Medicine12/29/23 Jere Sales MD [address] [place] [address] ReferringGastroenterology12/05/20 Sintia Clemente DO [address] [facility] [place] [address] Internal Medicine10/16/23Team MemberRelationshipSpecialtyStart [place] [address] [place], [place] [id number] PCP - GeneralFamily Medicine12/29/23 Jere Sales MD [address] [place] [address] ReferringGastroenterology12/05/20 Sintia Clemente DO [address] [facility] [place] [address] Internal Medicine10/16/23Team MemberRelationshipSpecialtyStart [place] [address] [place] [address] PCP - GeneralFamily Medicine12/29/23 Jere Sales MD [address] [place] [address] ReferringGastroenterology12/05/20 Sintia Clemente DO [address] [facility] [place] [address] Internal Medicine10/16/23Team MemberRelationshipSpecialtyStart [place] [address] [place] [address] PCP - GeneralFamily Medicine12/29/23 Jere Sales MD [address] [address] ReferringGastroenterology12/05/20 Sintia Clemente DO [address] [place] [address] Internal Medicine10/16/23Team MemberRelationshipSpecialtyStart [place] [address] [place] [address] PCP - Generalmily Medicine12/29/23 Jere Sales MD [address] [address] ReferringGastroenterology12/05/20 Sintia Clemente DO [address] [place] [address] Internal Medicine10/16/23Team MemberRelationshipSpecialtyStart [place] [address] [place] [address] PCP - GeneralFamily Medicine12/29/23 Jere Sales MD [address] [address] ReferringGastroenterology12/05/20 Sintia Clemente DO [address] [facility] [place] [address] Internal Medicine10/16/23Team MemberRelationshipSpecialtyStart [place] [address] [place] [address] PCP - GeneralFamily Medicine12/29/23 Jere Sales MD [address] [address] ReferringGastroenterology12/05/20 Sintia Clemente DO [address] [facility] [place] [address] Internal Medicine10/16/23Team MemberRelationshipSpecialtyStart [place] [address] [place] [address] PCP - GeneralFamily Medicine12/29/23 Jere Sales MD [address] [address] ReferringGastroenterology12/05/20 Sintia Clemente DO [address] [facility] [place] [address] Internal Medicine10/16/23Team MemberRelationshipSpecialtyStart [place] [address] [place] [address] PCP - GeneralFamily Medicine12/29/23 Jere Sales MD [address] [facility] [address] [place] [address] ReferringGastroenterology12/05/20 Sintia Clemente DO [address] [facility] [place] [address] Internal Medicine10/16/23Team MemberRelationshipSpecialtyStart [place] [address] [place] [address] PCP - GeneralFamily Medicine12/29/23 Jere Sales MD [address] [place] [address] ReferringGastroenterology12/05/20 Sintia Clemente DO [address] [facility] [place] [address] Internal Medicine10/16/23Team MemberRelationshipSpecialtyStart [place] [address] [place] [address] PCP - GeneralFamily Medicine12/29/23 Jere Sales MD [address] [facility] [address] [place] [address] ReferringGastroenterology12/05/20 Sintia Clemente DO [address] [facility] [place] [address] Internal Medicine10/16/23Team MemberRelationshipSpecialtyStart [place] [address] [place] [address] PCP - GeneralFamily Medicine12/29/23 Jere Sales MD [address] [address] ReferringGastroenterology12/05/20 Sintia Clemente DO [address] [facility] [place] [address] Internal Medicine10/16/23Team MemberRelationshipSpecialtyStart DateEnd Date Yuli Mariscal DO [address] [place] [facility] [id number] PCP - GeneralInternal Medicine03/12/25Team MemberRelationshipSpecialtyStart Date End Date Yuli Mariscal DO [address] [place] [facility] [address] PCP - GeneralInternal Medicine03/12/25Team MemberRelationshipSpecialtyStart Date End Date Yuli Mariscal DO [address] [place] [facility] [id number] PCP - GeneralInternal Medicine03/12/25Team MemberRelationshipSpecialtyStart Date End Date Yuli Mariscal DO [address] [place] [facility] [address] PCP - GeneralInternal Medicine03/12/25Team MemberRelationshipSpecialtyStart Date End Date Yuli Mariscal DO [address] [place] [facility] [address] PCP - GeneralInternal Medicine03/12/25Te MemberRelationshipSpecialtyStart Date End Date Yuli Mariscal DO [address] [place] [facility] [address] PCP - GeneralInternal Medicine03/12/25 (unrecognized sect ion and content) No Status Records FoundNo Status Records FoundNo Status Records FoundNo Status Records FoundNo Status Records FoundNo Status Records FoundNo Status Records FoundNo Status Records FoundNo Status Records FoundNo Status Records Found INFORMATION SOURCE (unrecogn ized section and content) DATE CREATED AUTHOR 03/22/2022 [facility] DATE CREATED AUTHOR AUTHOR'S ORGANIZ ATION 02/16/2023 [facility] DATE CREATED AUTHOR AUTHOR'S ORGANIZ ATION 10/13/2023 [facility] DATE CREATED AUTHOR AUTHOR'S ORGANIZ ATION 03/19/2024 [facility] DATE CREATED AUTHOR AUTHOR'S ORGANIZ ATION 03/23/2024 [facility] DATE CREATED AUTHOR AUTHOR'S ORGANIZ ATION 05/02/2024 [facility] DATE CREATED AUTHOR AUTHOR'S ORGANIZ ATION 11/28/2024 [facility] DATE CREATED AUTHOR AUTHOR'S ORGANIZ ATION 03/27/2025 [facility] DATE CREATED AUTHOR AUTHOR'S ORGANIZ ATION 03/30/2025 [facility] DATE CREATED AUTHOR AUTHOR'S ORGANIZ ATION 03/31/2025 [facility] Goals (unrecognized section and content) Goals may be documented in a n alternate section Source Comments (unrecognize d section and content) In the event this informatio n is protected by the Federal Confidentiality of Alcohol and Drug Abuse Patient Records regulations: The Federal rules restrict any use of the information to criminally investigate or prosecute any alcohol or drug abuse patient.[facility] CenterIn the event this information is protected by the Federal Confidentiality of Alcohol and Drug Abuse Patient Records regulations: The Federal rules restrict any use of the information to criminally investigate or prosecute any alcohol or drug abuse patient.[facility] CenterIn the event this information is protected by the Federal Confidentiality of Alcohol and Drug Abuse Patient Records regulations: The Federal rules restrict any use of the information to criminally investigate or prosecute any alcohol or drug abuse patient.[facility] CenterIn the event this information is protected by the Federal Confidentiality of Alcohol and Drug Abuse Patient Records regulations: The Federal rules restrict any use of the information to criminally investigate or prosecute any alcohol or drug abuse patient.[facility] CenterIn the event this information is protected by the Federal Confidentiality of Alcohol and Drug Abuse Patient Records regulations: The Federal rules restrict any use of the information to criminally investigate or prosecute any alcohol or drug abuse patient.[facility] CenterIn the event this information is protected by the Federal Confidentiality of Alcohol and Drug Abuse Patient Records regulations: The Federal rules restrict any use of the information to criminally investigate or prosecute any alcohol or drug abuse patient.[facility] CenterIn the event this information is protected by the Federal Confidentiality of Alcohol and Drug Abuse Patient Records regulations: The Federal rules restrict any use of the information to criminally investigate or prosecute any alcohol or drug abuse patient.[facility] CenterIn the event this information is protected by the Federal Confidentiality of Alcohol and Drug Abuse Patient Records regulations: The Federal rules restrict any use of the information to criminally investigate or prosecute any alcohol or drug abuse patient.[facility] CenterIn the event this information is protected by the Federal Confidentiality of Alcohol and Drug Abuse Patient Records regulations: The Federal rules restrict any use of the information to criminally investigate or prosecute any alcohol or drug abuse patient.[facility] CenterIn the event this information is protected by the Federal Confidentiality of Alcohol and Drug Abuse Patient Records regulations: The Federal rules restrict any use of the information to criminally investigate or prosecute any alcohol or drug abuse patient.[facility] CenterIn the event this information is protected by the Federal Confidentiality of Alcohol and Drug Abuse Patient Records regulations: The Federal rules restrict any use of the information to criminally investigate or prosecute any alcohol or drug abuse patient.[facility] CenterIn the event this information is protected by the Federal Confidentiality of Alcohol and Drug Abuse Patient Records regulations: The Federal rules restrict any use of the information to criminally investigate or prosecute any alcohol or drug abuse patient.[facility] CenterIn the event this information is protected by the Federal Confidentiality of Alcohol and Drug Abuse Patient Records regulations: The Federal rules restrict any use of the information to criminally investigate or prosecute any alcohol or drug abuse patient.[facility] CenterIn the event this information is protected by the Federal Confidentiality of Alcohol and Drug Abuse Patient Records regulations: The Federal rules restrict any use of the information to criminally investigate or prosecute any alcohol or drug abuse patient.[facility] CenterIn the event this information is protected by the Federal Confidentiality of Alcohol and Drug Abuse Patient Records regulations: The Federal rules restrict any use of the information to criminally investigate or prosecute any alcohol or drug abuse patient.[facility] CenterIn the event this information is protected by the Federal Confidentiality of Alcohol and Drug Abuse Patient Records regulations: The Federal rules restrict any use of the information to criminally investigate or prosecute any alcohol or drug abuse patient.[facility] CenterIn the event this information is protected by the Federal Confidentiality of Alcohol and Drug Abuse Patient Records regulations: The Federal rules restrict any use of the information to criminally investigate or prosecute any alcohol or drug abuse patient.[facility] CenterIn the event this information is protected by the Federal Confidentiality of Alcohol and Drug Abuse Patient Records regulations: The Federal rules restrict any use of the information to criminally investigate or prosecute any alcohol or drug abuse patient.[facility] CenterIn the event this information is protected by the Federal Confidentiality of Alcohol and Drug Abuse Patient Records regulations: The Federal rules restrict any use of the information to criminally investigate or prosecute any alcohol or drug abuse patient.[facility] CenterIn the event this information is protected by the Federal Confidentiality of Alcohol and Drug Abuse Patient Records regulations: The Federal rules restrict any use of the information to criminally investigate or prosecute any alcohol or drug abuse patient.[facility] CenterIn the event this information is protected by the Federal Confidentiality of Alcohol and Drug Abuse Patient Records regulations: The Federal rules restrict any use of the information to criminally investigate or prosecute any alcohol or drug abuse patient.[facility] CenterIn the event this information is protected by the Federal Confidentiality of Alcohol and Drug Abuse Patient Records regulations: The Federal rules restrict any use of the information to criminally investigate or prosecute any alcohol or drug abuse patient.[facility] CenterIn the event this information is protected by the Federal Confidentiality of Alcohol and Drug Abuse Patient Records regulations: The Federal rules restrict any use of the information to criminally investigate or prosecute any alcohol or drug abuse patient.[facility] CenterIn the event this information is protected by the Federal Confidentiality of Alcohol and Drug Abuse Patient Records regulations: The Federal rules restrict any use of the information to criminally investigate or prosecute any alcohol or drug abuse patient.[facility] CenterIn the event this information is protected by the Federal Confidentiality of Alcohol and Drug Abuse Patient Records regulations: The Federal rules restrict any use of the information to criminally investigate or prosecute any alcohol or drug abuse patient.[facility] CenterIn the event this information is protected by the Federal Confidentiality of Alcohol and Drug Abuse Patient Records regulations: The Federal rules restrict any use of the information to criminally investigate or prosecute any alcohol or drug abuse patient.[facility] CenterIn the event this information is protected by the Federal Confidentiality of Alcohol and Drug Abuse Patient Records regulations: The Federal rules restrict any use of the information to criminally investigate or prosecute any alcohol or drug abuse patient.[facility] CenterIn the event this information is protected by the Federal Confidentiality of Alcohol and Drug Abuse Patient Records regulations: The Federal rules restrict any use of the information to criminally investigate or prosecute any alcohol or drug abuse patient.[facility] CenterIn the event this information is protected by the Federal Confidentiality of Alcohol and Drug Abuse Patient Records regulations: The Federal rules restrict any use of the information to criminally investigate or prosecute any alcohol or drug abuse patient.[facility] CenterIn the event this information is protected by the Federal Confidentiality of Alcohol and Drug Abuse Patient Records regulations: The Federal rules restrict any use of the information to criminally investigate or prosecute any alcohol or drug abuse patient.[facility] CenterIn the event this information is protected by the Federal Confidentiality of Alcohol and Drug Abuse Patient Records regulations: The Federal rules restrict any use of the information to criminally investigate or prosecute any alcohol or drug abuse patient.[facility] CenterIn the event this information is protected by the Federal Confidentiality of Alcohol and Drug Abuse Patient Records regulations: The Federal rules restrict any use of the information to criminally investigate or prosecute any alcohol or drug abuse patient.[facility] CenterIn the event this information is protected by the Federal Confidentiality of Alcohol and Drug Abuse Patient Records regulations: The Federal rules restrict any use of the information to criminally investigate or prosecute any alcohol or drug abuse patient.[facility] CenterIn the event this information is protected by the Federal Confidentiality of Alcohol and Drug Abuse Patient Records regulations: The Federal rules restrict any use of the information to criminally investigate or prosecute any alcohol or drug abuse patient.[facility] CenterIn the event this information is protected by the Federal Confidentiality of Alcohol and Drug Abuse Patient Records regulations: The Federal rules restrict any use of the information to criminally investigate or prosecute any alcohol or drug abuse patient.[facility] CenterIn the event this information is protected by the Federal Confidentiality of Alcohol and Drug Abuse Patient Records regulations: The Federal rules restrict any use of the information to criminally investigate or prosecute any alcohol or drug abuse patient.[facility] CenterIn the event this information is protected by the Federal Confidentiality of Alcohol and Drug Abuse Patient Records regulations: The Federal rules restrict any use of the information to criminally investigate or prosecute any alcohol or drug abuse patient.[facility] CenterIn the event this information is protected by the Federal Confidentiality of Alcohol and Drug Abuse Patient Records regulations: The Federal rules restrict any use of the information to criminally investigate or prosecute any alcohol or drug abuse patient.[facility] CenterIn the event this information is protected by the Federal Confidentiality of Alcohol and Drug Abuse Patient Records regulations: The Federal rules restrict any use of the information to criminally investigate or prosecute any alcohol or drug abuse patient.[facility] CenterIn the event this information is protected by the Federal Confidentiality of Alcohol and Drug Abuse Patient Records regulations: The Federal rules restrict any use of the information to criminally investigate or prosecute any alcohol or drug abuse patient.[facility] CenterIn the event this information is protected by the Federal Confidentiality of Alcohol and Drug Abuse Patient Records regulations: The Federal rules restrict any use of the information to criminally investigate or prosecute any alcohol or drug abuse patient.[facility] CenterIn the event this information is protected by the Federal Confidentiality of Alcohol and Drug Abuse Patient Records regulations: The Federal rules restrict any use of the information to criminally investigate or prosecute any alcohol or drug abuse patient.[facility] CenterIn the event this information is protected by the Federal Confidentiality of Alcohol and Drug Abuse Patient Records regulations: The Federal rules restrict any use of the information to criminally investigate or prosecute any alcohol or drug abuse patient.[facility] CenterIn the event this information is protected by the Federal Confidentiality of Alcohol and Drug Abuse Patient Records regulations: The Federal rules restrict any use of the information to criminally investigate or prosecute any alcohol or drug abuse patient.[facility] CenterIn the event this information is protected by the Federal Confidentiality of Alcohol and Drug Abuse Patient Records regulations: The Federal rules restrict any use of the information to criminally investigate or prosecute any alcohol or drug abuse patient.[facility] CenterIn the event this information is protected by the Federal Confidentiality of Alcohol and Drug Abuse Patient Records regulations: The Federal rules restrict any use of the information to criminally investigate or prosecute any alcohol or drug abuse patient.[facility] CenterIn the event this information is protected by the Federal Confidentiality of Alcohol and Drug Abuse Patient Records regulations: The Federal rules restrict any use of the information to criminally investigate or prosecute any alcohol or drug abuse patient.[facility] the event this information is protected by the Federal Confidentiality of Alcohol and Drug Abuse Patient Records regulations: The Federal rules restrict any use of the information to criminally investigate or prosecute any alcohol or drug abuse patient.[facility] CenterIn the event this information is protected by the Federal Confidentiality of Alcohol and Drug Abuse Patient Records regulations: The Federal rules restrict any use of the information to criminally investigate or prosecute any alcohol or drug abuse patient.[facility] CenterIn the event this information is protected by the Federal Confidentiality of Alcohol and Drug Abuse Patient Records regulations: The Federal rules restrict any use of the information to criminally investigate or prosecute any alcohol or drug abuse patient.[facility] CenterIn the event this information is protected by the Federal Confidentiality of Alcohol and Drug Abuse Patient Records regulations: The Federal rules restrict any use of the information to criminally investigate or prosecute any alcohol or drug abuse patient.[facility] CenterIn the event this information is protected by the Federal Confidentiality of Alcohol and Drug Abuse Patient Records regulations: The Federal rules restrict any use of the information to criminally investigate or prosecute any alcohol or drug abuse patient.[facility] CenterIn the event this information is protected by the Federal Confidentiality of Alcohol and Drug Abuse Patient Records regulations: The Federal rules restrict any use of the information to criminally investigate or prosecute any alcohol or drug abuse patient.[facility] CenterIn the event this information is protected by the Federal Confidentiality of Alcohol and Drug Abuse Patient Records regulations: The Federal rules restrict any use of the information to criminally investigate or prosecute any alcohol or drug abuse patient.[facility] CenterIn the event this information is protected by the Federal Confidentiality of Alcohol and Drug Abuse Patient Records regulations: The Federal rules restrict any use of the information to criminally investigate or prosecute any alcohol or drug abuse patient.[facility] CenterIn the event this information is protected by the Federal Confidentiality of Alcohol and Drug Abuse Patient Records regulations: The Federal rules restrict any use of the information to criminally investigate or prosecute any alcohol or drug abuse patient.[facility] CenterIn the event this information is protected by the Federal Confidentiality of Alcohol and Drug Abuse Patient Records regulations: The Federal rules restrict any use of the information to criminally investigate or prosecute any alcohol or drug abuse patient.[facility] CenterIn the event this information is protected by the Federal Confidentiality of Alcohol and Drug Abuse Patient Records regulations: The Federal rules restrict any use of the information to criminally investigate or prosecute any alcohol or drug abuse patient.[facility] CenterIn the event this information is protected by the Federal Confidentiality of Alcohol and Drug Abuse Patient Records regulations: The Federal rules restrict any use of the information to criminally investigate or prosecute any alcohol or drug abuse patient.[facility] CenterIn the event this information is protected by the Federal Confidentiality of Alcohol and Drug Abuse Patient Records regulations: The Federal rules restrict any use of the information to criminally investigate or prosecute any alcohol or drug abuse patient.[facility] CenterIn the event this information is protected by the Federal Confidentiality of Alcohol and Drug Abuse Patient Records regulations: The Federal rules restrict any use of the information to criminally investigate or prosecute any alcohol or drug abuse patient.[facility] CenterIn the event this information is protected by the Federal Confidentiality of Alcohol and Drug Abuse Patient Records regulations: The Federal rules restrict any use of the information to criminally investigate or prosecute any alcohol or drug abuse patient.[facility]In the event this information is protected by the Federal Confidentiality of Alcohol and Drug Abuse Patient Records regulations: The Federal rules restrict any use of the information to criminally investigate or prosecute any alcohol or drug abuse patient.[facility] CenterIn the event this information is protected by the Federal Confidentiality of Alcohol and Drug Abuse Patient Records regulations: The Federal rules restrict any use of the information to criminally investigate or prosecute any alcohol or drug abuse patient.[facility] CenterIn the event this information is protected by the Federal Confidentiality of Alcohol and Drug Abuse Patient Records regulations: The Federal rules restrict any use of the information to criminally investigate or prosecute any alcohol or drug abuse patient.[facility] CenterIn the event this information is protected by the Federal Confidentiality of Alcohol and Drug Abuse Patient Records regulations: The Federal rules restrict any use of the information to criminally investigate or prosecute any alcohol or drug abuse patient.[facility] CenterIn the event this information is protected by the Federal Confidentiality of Alcohol and Drug Abuse Patient Records regulations: The Federal rules restrict any use of the information to criminally investigate or prosecute any alcohol or drug abuse patient.[facility] CenterIn the event this information is protected by the Federal Confidentiality of Alcohol and Drug Abuse Patient Records regulations: The Federal rules restrict any use of the information to criminally investigate or prosecute any alcohol or drug abuse patient.[facility] CenterIn the event this information is protected by the Federal Confidentiality of Alcohol and Drug Abuse Patient Records regulations: The Federal rules restrict any use of the information to criminally investigate or prosecute any alcohol or drug abuse patient.[facility] CenterIn the event this information is protected by the Federal Confidentiality of Alcohol and Drug Abuse Patient Records regulations: The Federal rules restrict any use of the information to criminally investigate or prosecute any alcohol or drug abuse patient.[facility] CenterIn the event this information is protected by the Federal Confidentiality of Alcohol and Drug Abuse Patient Records regulations: The Federal rules restrict any use of the information to criminally investigate or prosecute any alcohol or drug abuse patient.[facility]In the event this information is protected by the Federal Confidentiality of Alcohol and Drug Abuse Patient Records regulations: The Federal rules restrict any use of the information to criminally investigate or prosecute any alcohol or drug abuse patient.[facility]In the event this information is protected by the Federal Confidentiality of Alcohol and Drug Abuse Patient Records regulations: The Federal rules restrict any use of the information to criminally investigate or prosecute any alcohol or drug abuse patient.[facility]In the event this information is protected by the Federal Confidentiality of Alcohol and Drug Abuse Patient Records regulations: The Federal rules restrict any use of the information to criminally investigate or prosecute any alcohol or drug abuse patient.[facility]In the event this information is protected by the Federal Confidentiality of Alcohol and Drug Abuse Patient Records regulations: The Federal rules restrict any use of the information to criminally investigate or prosecute any alcohol or drug abuse patient.[facility]In the event this information is protected by the Federal Confidentiality of Alcohol and Drug Abuse Patient Records regulations: The Federal rules restrict any use of the information to criminally investigate or prosecute any alcohol or drug abuse patient.[facility]In the event this information is protected by the Federal Confidentiality of Alcohol and Drug Abuse Patient Records regulations: The Federal rules restrict any use of the information to criminally investigate or prosecute any alcohol or drug abuse patient.[facility]In the event this information is protected by the Federal Confidentiality of Alcohol and Drug Abuse Patient Records regulations: The Federal rules restrict any use of the information to criminally investigate or prosecute any alcohol or drug abuse patient.[facility]In the event this information is protected by the Federal Confidentiality of Alcohol and Drug Abuse Patient Records regulations: The Federal rules restrict any use of the information to criminally investigate or prosecute any alcohol or drug abuse patient.[facility]In the event this information is protected by the Federal Confidentiality of Alcohol and Drug Abuse Patient Records regulations: The Federal rules restrict any use of the information to criminally investigate or prosecute any alcohol or drug abuse patient.[facility]In the event this information is protected by the Federal Confidentiality of Alcohol and Drug Abuse Patient Records regulations: The Federal rules restrict any use of the information to criminally investigate or prosecute any alcohol or drug abuse patient.[facility]In the event this information is protected by the Federal Confidentiality of Alcohol and Drug Abuse Patient Records regulations: The Federal rules restrict any use of the information to criminally investigate or prosecute any alcohol or drug abuse patient.[facility]In the event this information is protected by the Federal Confidentiality of Alcohol and Drug Abuse Patient Records regulations: The Federal rules restrict any use of the information to criminally investigate or prosecute any alcohol or drug abuse patient.[facility]In the event this information is protected by the Federal Confidentiality of Alcohol and Drug Abuse Patient Records regulations: The Federal rules restrict any use of the information to criminally investigate or prosecute any alcohol or drug abuse patient.[facility]In the event this information is protected by the Federal Confidentiality of Alcohol and Drug Abuse Patient Records regulations: The Federal rules restrict any use of the information to criminally investigate or prosecute any alcohol or drug abuse patient.[facility]In the event this information is protected by the Federal Confidentiality of Alcohol and Drug Abuse Patient Records regulations: The Federal rules restrict any use of the information to criminally investigate or prosecute any alcohol or drug abuse patient.[facility]In the event this information is protected by the Federal Confidentiality of Alcohol and Drug Abuse Patient Records regulations: The Federal rules restrict any use of the information to criminally investigate or prosecute any alcohol or drug abuse patient.[facility]In the event this information is protected by the Federal Confidentiality of Alcohol and Drug Abuse Patient Records regulations: The Federal rules restrict any use of the information to criminally investigate or prosecute any alcohol or drug abuse patient.[facility]In the event this information is protected by the Federal Confidentiality of Alcohol and Drug Abuse Patient Records regulations: The Federal rules restrict any use of the information to criminally investigate or prosecute any alcohol or drug abuse patient.[facility]In the event this information is protected by the Federal Confidentiality of Alcohol and Drug Abuse Patient Records regulations: The Federal rules restrict any use of the information to criminally investigate or prosecute any alcohol or drug abuse patient.[facility]In the event this information is protected by the Federal Confidentiality of Alcohol and Drug Abuse Patient Records regulations: The Federal rules restrict any use of the information to criminally investigate or prosecute any alcohol or drug abuse patient.[facility]In the event this information is protected by the Federal Confidentiality of Alcohol and Drug Abuse Patient Records regulations: The Federal rules restrict any use of the information to criminally investigate or prosecute any alcohol or drug abuse patient.[facility]In the event this information is protected by the Federal Confidentiality of Alcohol and Drug Abuse Patient Records regulations: The Federal rules restrict any use of the information to criminally investigate or prosecute any alcohol or drug abuse patient.[facility]In the event this information is protected by the Federal Confidentiality of Alcohol and Drug Abuse Patient Records regulations: The Federal rules restrict any use of the information to criminally investigate or prosecute any alcohol or drug abuse patient.[facility]In the event this information is protected by the Federal Confidentiality of Alcohol and Drug Abuse Patient Records regulations: The Federal rules restrict any use of the information to criminally investigate or prosecute any alcohol or drug abuse patient.[facility]In the event this information is protected by the Federal Confidentiality of Alcohol and Drug Abuse Patient Records regulations: The Federal rules restrict any use of the information to criminally investigate or prosecute any alcohol or drug abuse patient.[facility]In the event this information is protected by the Federal Confidentiality of Alcohol and Drug Abuse Patient Records regulations: The Federal rules restrict any use of the information to criminally investigate or prosecute any alcohol or drug abuse patient.[facility] the event this information is protected by the Federal Confidentiality of Alcohol and Drug Abuse Patient Records regulations: The Federal rules restrict any use of the information to criminally investigate or prosecute any alcohol or drug abuse patient.[facility]In the event this information is protected by the Federal Confidentiality of Alcohol and Drug Abuse Patient Records regulations: The Federal rules restrict any use of the information to criminally investigate or prosecute any alcohol or drug abuse patient.[facility]In the event this information is protected by the Federal Confidentiality of Alcohol and Drug Abuse Patient Records regulations: The Federal rules restrict any use of the information to criminally investigate or prosecute any alcohol or drug abuse patient.[facility]In the event this information is protected by the Federal Confidentiality of Alcohol and Drug Abuse Patient Records regulations: The Federal rules restrict any use of the information to criminally investigate or prosecute any alcohol or drug abuse patient.[facility]In the event this information is protected by the Federal Confidentiality of Alcohol and Drug Abuse Patient Records regulations: The Federal rules restrict any use of the information to criminally investigate or prosecute any alcohol or drug abuse patient.[facility]In the event this information is protected by the Federal Confidentiality of Alcohol and Drug Abuse Patient Records regulations: The Federal rules restrict any use of the information to criminally investigate or prosecute any alcohol or drug abuse patient.[facility]In the event this information is protected by the Federal Confidentiality of Alcohol and Drug Abuse Patient Records regulations: The Federal rules restrict any use of the information to criminally investigate or prosecute any alcohol or drug abuse patient.[facility]In the event this information is protected by the Federal Confidentiality of Alcohol and Drug Abuse Patient Records regulations: The Federal rules restrict any use of the information to criminally investigate or prosecute any alcohol or drug abuse patient.[facility]In the event this information is protected by the Federal Confidentiality of Alcohol and Drug Abuse Patient Records regulations: The Federal rules restrict any use of the information to criminally investigate or prosecute any alcohol or drug abuse patient.[facility]In the event this information is protected by the Federal Confidentiality of Alcohol and Drug Abuse Patient Records regulations: The Federal rules restrict any use of the information to criminally investigate or prosecute any alcohol or drug abuse patient.[facility]In the event this information is protected by the Federal Confidentiality of Alcohol and Drug Abuse Patient Records regulations: The Federal rules restrict any use of the information to criminally investigate or prosecute any alcohol or drug abuse patient.[facility]In the event this information is protected by the Federal Confidentiality of Alcohol and Drug Abuse Patient Records regulations: The Federal rules restrict any use of the information to criminally investigate or prosecute any alcohol or drug abuse patient.[facility]In the event this information is protected by the Federal Confidentiality of Alcohol and Drug Abuse Patient Records regulations: The Federal rules restrict any use of the information to criminally investigate or prosecute any alcohol or drug abuse patient.[facility]In the event this information is protected by the Federal Confidentiality of Alcohol and Drug Abuse Patient Records regulations: The Federal rules restrict any use of the information to criminally investigate or prosecute any alcohol or drug abuse patient.[facility]In the event this information is protected by the Federal Confidentiality of Alcohol and Drug Abuse Patient Records regulations: The Federal rules restrict any use of the information to criminally investigate or prosecute any alcohol or drug abuse patient.[facility]In the event this information is protected by the Federal Confidentiality of Alcohol and Drug Abuse Patient Records regulations: The Federal rules restrict any use of the information to criminally investigate or prosecute any alcohol or drug abuse patient.[facility]In the event this information is protected by the Federal Confidentiality of Alcohol and Drug Abuse Patient Records regulations: The Federal rules restrict any use of the information to criminally investigate or prosecute any alcohol or drug abuse patient.[facility]In the event this information is protected by the Federal Confidentiality of Alcohol and Drug Abuse Patient Records regulations: The Federal rules restrict any use of the information to criminally investigate or prosecute any alcohol or drug abuse patient.[facility]In the event this information is protected by the Federal Confidentiality of Alcohol and Drug Abuse Patient Records regulations: The Federal rules restrict any use of the information to criminally investigate or prosecute any alcohol or drug abuse patient.[facility]In the event this information is protected by the Federal Confidentiality of Alcohol and Drug Abuse Patient Records regulations: The Federal rules restrict any use of the information to criminally investigate or prosecute any alcohol or drug abuse patient.[facility]In the event this information is protected by the Federal Confidentiality of Alcohol and Drug Abuse Patient Records regulations: The Federal rules restrict any use of the information to criminally investigate or prosecute any alcohol or drug abuse patient.[facility]In the event this information is protected by the Federal Confidentiality of Alcohol and Drug Abuse Patient Records regulations: The Federal rules restrict any use of the information to criminally investigate or prosecute any alcohol or drug abuse patient.[facility]In the event this information is protected by the Federal Confidentiality of Alcohol and Drug Abuse Patient Records regulations: The Federal rules restrict any use of the information to criminally investigate or prosecute any alcohol or drug abuse patient.[facility]In the event this information is protected by the Federal Confidentiality of Alcohol and Drug Abuse Patient Records regulations: The Federal rules restrict any use of the information to criminally investigate or prosecute any alcohol or drug abuse patient.[facility]In the event this information is protected by the Federal Confidentiality of Alcohol and Drug Abuse Patient Records regulations: The Federal rules restrict any use of the information to criminally investigate or prosecute any alcohol or drug abuse patient.[facility]In the event this information is protected by the Federal Confidentiality of Alcohol and Drug Abuse Patient Records regulations: The Federal rules restrict any use of the information to criminally investigate or prosecute any alcohol or drug abuse patient.[facility]In the event this information is protected by the Federal Confidentiality of Alcohol and Drug Abuse Patient Records regulations: The Federal rules restrict any use of the information to criminally investigate or prosecute any alcohol or drug abuse patient.[facility]In the event this information is protected by the Federal Confidentiality of Alcohol and Drug Abuse Patient Records regulations: The Federal rules restrict any use of the information to criminally investigate or prosecute any alcohol or drug abuse patient.[facility] CenterIn the event this information is protected by the Federal Confidentiality of Alcohol and Drug Abuse Patient Records regulations: The Federal rules restrict any use of the information to criminally investigate or prosecute any alcohol or drug abuse patient.[facility] CenterIn the event this information is protected by the Federal Confidentiality of Alcohol and Drug Abuse Patient Records regulations: The Federal rules restrict any use of the information to criminally investigate or prosecute any alcohol or drug abuse patient.[facility] CenterIn the event this information is protected by the Federal Confidentiality of Alcohol and Drug Abuse Patient Records regulations: The Federal rules restrict any use of the information to criminally investigate or prosecute any alcohol or drug abuse patient.[facility] CenterIn the event this information is protected by the Federal Confidentiality of Alcohol and Drug Abuse Patient Records regulations: The Federal rules restrict any use of the information to criminally investigate or prosecute any alcohol or drug abuse patient.[facility] CenterIn the event this information is protected by the Federal Confidentiality of Alcohol and Drug Abuse Patient Records regulations: The Federal rules restrict any use of the information to criminally investigate or prosecute any alcohol or drug abuse patient.[facility] CenterIn the event this information is protected by the Federal Confidentiality of Alcohol and Drug Abuse Patient Records regulations: The Federal rules restrict any use of the information to criminally investigate or prosecute any alcohol or drug abuse patient.[facility] CenterIn the event this information is protected by the Federal Confidentiality of Alcohol and Drug Abuse Patient Records regulations: The Federal rules restrict any use of the information to criminally investigate or prosecute any alcohol or drug abuse patient.[facility] CenterIn the event this information is protected by the Federal Confidentiality of Alcohol and Drug Abuse Patient Records regulations: The Federal rules restrict any use of the information to criminally investigate or prosecute any alcohol or drug abuse patient.[facility] CenterIn the event this information is protected by the Federal Confidentiality of Alcohol and Drug Abuse Patient Records regulations: The Federal rules restrict any use of the information to criminally investigate or prosecute any alcohol or drug abuse patient.[facility] CenterIn the event this information is protected by the Federal Confidentiality of Alcohol and Drug Abuse Patient Records regulations: The Federal rules restrict any use of the information to criminally investigate or prosecute any alcohol or drug abuse patient.[facility] CenterIn the event this information is protected by the Federal Confidentiality of Alcohol and Drug Abuse Patient Records regulations: The Federal rules restrict any use of the information to criminally investigate or prosecute any alcohol or drug abuse patient.[facility] CenterIn the event this information is protected by the Federal Confidentiality of Alcohol and Drug Abuse Patient Records regulations: The Federal rules restrict any use of the information to criminally investigate or prosecute any alcohol or drug abuse patient.[facility] CenterIn the event this information is protected by the Federal Confidentiality of Alcohol and Drug Abuse Patient Records regulations: The Federal rules restrict any use of the information to criminally investigate or prosecute any alcohol or drug abuse patient.[facility] CenterIn the event this information is protected by the Federal Confidentiality of Alcohol and Drug Abuse Patient Records regulations: The Federal rules restrict any use of the information to criminally investigate or prosecute any alcohol or drug abuse patient.[facility] FOR RECORDS PERTAINING TO PATIENTS [...] BE BASED ON THE PRIMARY CLINICAL RECORDS. [facility] [employer] provides no warranty or guarantee of the accuracy or completeness of information in this document.
[2025-04-06] MEDS: OXYBUTYNIN CHLORIDE 5 MG TAB XL 10 MG PO (19:43)
[2025-04-06] MEDS: ZOLPIDEM TARTRATE 10 MG TABLET PO (22:18)
[2025-04-07] VITALS (15 sets, daily range): BP systolic 111–126; BP diastolic 75–81; PULSE 81–95; TEMP 36.6–36.8; O2SAT 94–96
[2025-04-07] MEDS: AMPICILLIN SODIUM/SULBACTAM NA 3 GM in 0.9 % SODIUM CHLORIDE 100 ML IV ×3 (03:27→15:28)
[2025-04-07 05:23] LABS: Hematocrit 31.6 % (42.0-54.0); Hemoglobin 10.0 g/dL (14.0-18.0); Immature Granulocytes Abs Auto 0.12 10^3/uL (0.00-0.03); Immature Granulocytes Pct Auto 1.6 % (0.0-0.5); Lymphocytes Absolute Auto 0.8 10^3/uL (1.2-3.8); Mean Corpuscular HGB Conc 31.6 g/dL (29.9-35.2); Mean Corpuscular Hemoglobin 30.4 pg (25.9-34.0); Mean Corpuscular Volume 96.0 fL (80.0-94.0); Platelet Count 243 10^3/uL (150-450); Red Blood Count 3.29 10^6/uL (4.70-6.10); White Blood Count 7.5 10^3/uL (4.0-11.0)
[2025-04-07 05:41] LABS: Alanine Aminotransferase 21 U/L (16-63); Albumin Globulin Ratio 0.7; Albumin Level 2.5 g/dL (3.4-5.0); Alkaline Phosphatase 93 U/L (46-116); Anion Gap 12.0; Aspartate Amino Transferase <5 U/L (15-37); Blood Urea Nitrogen 24.0 mg/dL (7.0-18.0); Calcium 8.5 mg/dL (8.5-10.1); Carbon Dioxide 23.4 mmol/L (21.0-32.0); Chloride 105 mmol/L (98-107); Estimated GFR (African America 60 (>=60 mL/min/1.73m^2); Estimated GFR (Non-African Ame 49 (>=60 mL/min/1.73m^2); Globulin 3.7 g/dL; Glucose 92 mg/dL (74-106); Magnesium 2.2 mg/dL (1.8-2.4); Potassium 3.4 mmol/L (3.5-5.1); Sodium 137 mmol/L (136-145); Total Protein 6.2 g/dL (6.4-8.2)
--- NOTE | 2025-04-07 09:20 | CM.NOTE ---
Rounds made with Dr. Hoffman, pt will discharge to home today and f/u with PCP. Pt will have BMP completed prior to seeing PCP. voices she will reach out to PCP, they are related to Dr. Lorenz.
[2025-04-07] MEDS: DOCUSATE SODIUM 100 MG CAPSULE PO (09:27)
[2025-04-07] MEDS: ALLOPURINOL 300 MG TABLET PO (09:27)
[2025-04-07] MEDS: PANTOPRAZOLE SODIUM 40 MG TABLET.DR PO (09:27)
[2025-04-07] MEDS: ENOXAPARIN SODIUM 40 MG/0.4 ML SYRINGE SUBQ (09:27)
[2025-04-07] MEDS: FAMOTIDINE 20 MG TABLET PO (09:27)
[2025-04-07] MEDS: QUININE SULFATE 324 MG 324 EACH PO (09:28)
[2025-04-07] MEDS: POTASSIUM CHLORIDE 10 MEQ ER TABLET 20 MEQ PO (09:56)
--- NOTE | 2025-04-07 10:53 | P.DS_ITS ---
DS: Providers Provider Date of admission: 04/02/25 12:24 Primary care physician: Dawit Lorenz DO Consults: 04/05/25 11:25 Consult to Podiatry Routine Consulting Provider: Chalino Villalobos Reason for consultation: toe wound, concern for osteo? Anticipated date of discharge: 04/07/25 DS: Diagnosis Discharge Diagnosis (1) Cellulitis of left leg: DS: Summary Hospital Course Hospital Course: Patient is a 75-year-old male with medical history as listed below who presented to the ER accompanied by his due to worsening left lower extremity pain and swelling that developed over the past couple days. provided most of the history for the patient, she reports that patient developed this on Saturday couple days ago and he was seen by his PCP and was prescribed Keflex and patient has taken it with no relief, she reports that he had a fever at home and was nauseated with episodes of bilious emesis, also reported decreased appetite and dehydration. Patient held his diuretics at home since he felt dehydrated and thirsty. His reports that patient has been undergoing further evaluation regarding abdominal ascites with concerns about liver cirrhosis, he did have pleural effusion and is not getting releases and then since then there has not been any recurrence of pleural effusion however now undergoing investigation at [facility] regarding ascites, never had paracentesis in the past, controlled with diuretics at this time, he supposed to get EGD with banding for his esophageal varices next week. Here in the ER, patient is afebrile, has leukocytosis with WBC 12.5. Creatinine a little bit increased from baseline, lactate within normal limit, total bilirubin 1.6, direct bili 0.5, AST and ALT within normal limits, CRB 4.85 and ESR 126. Blood cultures collected in the ER. patient was given Unasyn and doxy cycline in the ER and decision was made to admit him for further evaluation and management. Left Lower extremity cellulitis -Failed outpatient oral antibiotics with Keflex and Augmentin -Xray of foot showed soft tissue swelling, no OM or fractures. -Afebrile here, WBC has normalized. clinically improving -Follow-up blood culture - pending -CRP downtrending -Continue IV antibiotics with Unasyn and doxycycline -Pain control as needed -Will hold diuretics for now. Restart if needed. -Pt follows with podiatry as outpatient, has appt this coming Saturday Patient has chronic conditions of previous pleural effusion and did not of getting pleurodesis with no further recurrence and effusion, he does have ascites and been investigated for possibility of liver cirrhosis with [facility] team and he supposed to see a liver clinic before . He also has EGD scheduled on Saturday at [facility] for banding of esophageal varices. DVT ppx: Lovenox Diet: regular 04/05/2025 patient doing better from a cellulitis standpoint. We are continue with IV Unasyn and IV doxycycline for today and tomorrow at least. His is concerned that he always has recurrent cellulitis when he switched to oral antibiotics. I discussed with her the options including extended oral antibiotic therapy versus outpatient IV infusion. Otherwise I consulted podiatry for his toe wound. I will order arterial Doppler study to rule out PAD given his recurrent cellulitis and slowed/poor healing. Also patient and tell tell me that his spironolactone and torsemide has been on hold by his doctors at [place] so I would not resume that here. 04/06/2025 his cellulitis continues to improve with the CRP improving to 6.4 today. Explained to his that we will give another day and tomorrow with IV antibiotic and then he can be discharged on oral antibiotic for another 10 days after discharge. They are in agreement with the plan. She had concerns about his potassium p.o. that he is on at home explained to her that he was on torsemide when he was on this high potassium dose however we will see how the numbers are tomorrow and if anything we can always send him on a standing 40 mg p.o. potassium daily on discharge. The patient and were in agreement with the plan. Will continue the same management now he is on IV Unasyn as well as an and p.o. doxycycline 04/07/2025 patient cellulitis continues to improve. He is feeling better. He denies any fever or chills. He does not have a leukocytosis on his labs. However he still hypokalemic. I discussed the plan with the patient his at bedside. We opted for Augmentin as well as doxycycline as outpatient for extended therapy for a total of 2 weeks for Augmentin and a total of 5 days of doxycycline. Patient will see his PCP in 2 days he will get a CMP in 2 days as I am starting him on potassium 20 mg twice daily p.o. instead of 3 times daily before he came in. Patient and his are in agreement with the plan. Patient should not get lymphedema chemotherapy which include bumps as well as massaging for the next 2 to 3 weeks. Patient will need to follow-up with PCP for final clearance before going for the procedure. He understand those instructions as well. He is being discharged home with home health Status at Discharge Overall status at discharge: patient is progressing back to baseline Time Spent with Patient Time attestation: Total time spent providing and/or coordinating discharge services: Exam Narrative Exam Narrative: HEENT Normal oropharyngeal mucosa without any ulcers or exudates Eyes: Conjunctiva normal Pulmonary Auscultation: Slightly diminished breath sounds, no crackles, no wheeze Cardiovascular Rate: normal rate Rhythm: regular rhythm Heart Sounds: S1 normal, S2 normal and no murmurs GI Inspection: mildly distended Palpation: soft, not firm and nontender. No rigidity or rebound. Neuro General: alert, awake and oriented x3. No obvious new focal deficit Musculoskeletal: normal range of motion Extrem LLE: redness, erythema, edema noted on Left foot extending to LLE above knee medially-continues to improve compared to when he first came in given the line marked by sharpie on his left thigh. L 2nd tip of toe dry small wound, no obvious discharge. Constitutional Vital Signs, click to edit/add: Last Vital Signs Temp 98.1 F 04/07/25 07:17 Pulse 86 04/07/25 09:59 Resp 18 04/07/25 07:17 BP 117/76 04/07/25 07:17 Pulse Ox 94 L 04/07/25 07:17 O2 Del Method Room Air 04/07/25 07:17 DS: Data Data Completed and Pending Labs on day of discharge: Labs from last 24 hours 04/07/25 05:17 WBC 7.5 RBC 3.29 L Hgb 10.0 L Hct 31.6 L MCV 96.0 H MCH 30.4 MCHC 31.6 RDW 15.8 H Plt Count 243 MPV 9.7 Neut % (Auto) 75.7 H Lymph % (Auto) 10.8 L [place] % (Auto) 11.4 Eos % (Auto) 0.0 L Baso % (Auto) 0.5 Neut # (Auto) 5.7 Lymph # (Auto) 0.8 L [place] # (Auto) 0.9 H Eos # (Auto) 0.0 Baso # (Auto) 0.0 Abs Immat Gran (auto) 0.12 H Imm/Tot Granulo (auto) 1.6 H Sodium 137 Potassium 3.4 L Chloride 105 Carbon Dioxide 23.4 Anion Gap 12.0 BUN 24.0 H Creatinine 1.41 H Est GFR ( Amer) 60 Est GFR (Non-Af Amer) 49 L BUN/Creatinine Ratio 17.0 Glucose 92 Calcium 8.5 Magnesium 2.2 Total Bilirubin 0.6 AST <5 L ALT 21 Alkaline Phosphatase 93 Total Protein 6.2 L Albumin 2.5 L Globulin 3.7 Albumin/Globulin Ratio 0.7 Preliminary micro results at discharge 04/02/25 09:53 Blood Culture Result 2 - Preliminary Blood NO GROWTH AT 36-48 HOURS. FINAL TO FOLLOW. 04/02/25 09:44 Blood Culture Result 1 - Preliminary Blood NO GROWTH AT 36-48 HOURS. FINAL TO FOLLOW. Discharge Plan Discharge Disposition: Home Health Service Condition: Good Discharge Medications: New polyethylene glycol 3350 17 gram Powder In Packet 17 g PO QD PRN (Reason: constipation) 10 Days Qty: 14 0RF sennosides-docusate sodium 8.6-50 mg Tablet 1 tab PO QD PRN (Reason: Constipation) 10 Days Qty: 20 0RF docusate sodium 100 mg Capsule 100 mg PO BID PRN (Reason: Constipation) 10 Days Qty: 20 0RF amoxicillin-pot clavulanate 875-125 mg tablet 1 tab PO BID 10 Days Qty: 20 0RF doxycycline hyclate 100 mg tablet 100 mg PO BID 10 Days Qty: 20 0RF Continued allopurinol 300 mg tablet 300 mg PO DAILY quinine sulfate 324 mg capsule 324 mg PO Q12H pantoprazole [Protonix] [address] for susp in packet 40 mg PO BID ascorbic acid (vitamin C) [C-500] 500 mg tablet,chewable 500 mg PO BID Milltrium Senior Tablet 1 tab PO DAILY Mucinex DM 30-600 mg tablet extended release 12 hr 1 tab PO Q12H famotidine 20 mg tablet 20 mg PO DAILY mirabegron 50 mg tablet extended release 24 hr 50 mg PO QPM Changed potassium chloride 20 mEq tablet,ER particles/crystals 20 meq PO BID Qty: 0 0RF Held metolazone 5 mg tablet 5 mg PO QDAY Hold Instructions: held by your doctor outpatient torsemide 100 mg tablet 100 mg PO QDAY Hold Instructions: Held as per your doctor outpatient spironolactone 25 mg tablet 25 mg PO QAM Hold Instructions: held as per your doctor outpatient Discontinued atorvastatin 10 mg tablet 10 mg PO QPM loratadine [Loradamed] 10 mg tablet 10 mg PO DAILY sucralfate 1 gram tablet 1 g PO ACHS cephalexin 500 mg capsule 500 mg PO BID 7 Days Qty: 14 0RF Print Language: Mongolian Activity Restrictions/Additional Instructions: Please follow-up with your PCP in 2 days I ordered the blood work for you in 2 days I gave you antibiotic course for total of 10 days, however once you follow-up with your. However, once you follow-up with your primary care physician you can always make the call whether you need to get an extended course of antibiotics While on those antibiotics, please watch out for any diarrhea and let your PCP know as soon as possible I also recommend that you follow-up with your doctors as outpatient including the liver specialist I would avoid doing the lymphedema therapy for the next 2 weeks at least, decision will could be revisited with the primary care physician upon assessment of the wound. He will need podiatry follow-up as outpatient for your left toe. Forms: Portal Instructions
[2025-04-07] MEDS: DOXYCYCLINE HYCLATE 100 MG in 0.9 % SODIUM CHLORIDE 100 ML IV (11:58)
--- NOTE | 2025-04-07 12:28 | CM.NOTE ---
Outpatient lab order completed by CM and given to pt's with instructions. Spoke with [facility] executive secretary and she will schedule PCP f/u for Saturday of this week. Pt and verbalize understanding of repeat lab work and f/u for Saturday.
--- NOTE | 2025-04-08 14:36 | CM.NOTE ---
The patient's called stating that [facility] in [place] had not received any prescriptions for her . She was concerned because two of the medications were antibiotics. The others were for constipation which she said she did not want. I offered to call them in right away to [facility] in [place]. A pharmacist was unavailable when I called so I had to leave the prescriptions on their voicemail. The was notified that her husbands medications were called into [facility] but that I had to leave a voicemail so please allow time for them to fill the antibiotics.
--- NOTE | 2025-04-08 14:51 | CM.DCFOLLOWU ---
Person spoke with: Virgen () How are you feeling? He's feeling better How is your pain? Good Did you understand your discharge instructions? Yes Do you have any questions about your discharge instructions? No Were you given any prescriptions at discharge? Yes but the pharmacy never received them Were you able to get your prescriptions filled? No Do you understand how to take your medications as ordered? Yes Do you have any questions about your follow up appointment and do you plan to keep your follow up appointment? The patient is scheduled to see Dr Lorenz at 9:30 am on 04/09/2025 Is there anything else that you would like to discuss? No Questions/Comments/Concerns/Other: The patient's prescriptions were called into [facility] in [place] per the wifes request. She will pick them up this evening. He will take one dose of the antibiotics today and then start them twice a day tomorrow per instructions.
== END 2025-04-07 16:50 | disposition home or self-care (01) | DRG 603 ==
LOC: ER 11:52 → MS 04-03 19:40
PROVIDERS: Admitting Provider Internal Medicine; Emergency Provider Emergency Medicine; PCP Internal Medicine; Visit Provider Student in an Organized Health Care Education/Training Program
DX: L03.116 Cellulitis of left lower limb (principal); E78.5 Hyperlipidemia, unspecified; Z98.49 Cataract extraction status, unspecified eye; E86.9 Volume depletion, unspecified; E87.6 Hypokalemia; S90.935D Unspecified superficial injury of left lesser toe(s), subsequent encounter; X58.XXXD Exposure to other specified factors, subsequent encounter
CPT/HCPCS: 36415; 73620; 80048; 80053; 80076; 81001; 83605; 83735; 84100; 85007; 85025; 85027; 86140; 87040; 93005; 93925; 93971; 96374; 99285; J0295; J1171; J1650; J2405

== ENCOUNTER 2025-04-12 09:28 | Outpatient (OUT) | payer MEDICARE, SELFPAY ==
--- OUTSIDE RECORDS SUMMARY | 2025-03-29 12:55 | XMS_ITS | Encounter Summary ---
Author Organization [facility] Address [address] [place] [address] Care Team Providers Care Streetcar Repairer Name Role Phone Jere Sales MD Unavailable [phone] Calin Gotti DO Unavailable [phone] Jose Antonio Meyers MD Primary Care Provider [phone] Source Comments In the event this information is protected by the Federal Confidentiality of Alcohol and Drug AbusePatient Records regulations: The Federal rules restrict any use of the information to criminally investigate or prosecute any alcohol or drug abuse patient.[facility] Reason for Visit * ReasonCommentsRadio Gen RMP Encounter Details DateTypeDepartmentCare Team (Latest Contact Info)Iqtdqqbxxmp26/13/2025 12:55 PM EDT - 03/29/2025 11:59 PM EDTHospital Encounter Radiology [address] [place] [address] [place] [address] Pleural effusion, not elsewhere classified [J90] Discharge Disposition: Home Social History Tobacco UseTypesPacks/DayYears UsedDateSmoking Tobacco: NeverSmokeless Tobacco: NeverAlcohol UseStandard Drinks/WeekCommentsYes0 (1 standard drink = 0.6 oz pure alcohol)socially, no drink since HC UtilitiesAnswerDate RecordedIn the past 12 months has the electric, gas, oil, or water company threatened to shut off services in your home?No11/21/2023HQ-2AnswerDate RecordedScore (Questions 1 & 2)Hunger Vital SignAnswerDate RecordedWithin the past 12 months, you worried that your food would run out before you got the money to buymore. Never true11/21/2023Within the past 12 months, the food you bought just didn't last and you didn't have money to get more.Never true11/21/2023RAPARE - TransportationAnswerDate RecordedIn the past 12 months, has lack of transportation kept you from medical appointments or from getting medications?No 11/21/2023In the past 12 months, has lack of transportation kept you from meetings, work, or from getting things needed for daily living?No11/21/2023 Housing Stability Vital SignAnswerDate RecordedIn the last 12 months, was there a time when you were not able to pay the mortgage or rent on time?No11/21/2023In the last 12 months, how many places have you lived?In the last 12 months, was there a time when you did not have a steady place to sleep or slept in thayerelter (including now)?No11/21/2023rea Deprivation IndexAnswerDate RecordedNational Score (1-100), lower number is lower qyei567712/11/2023State Score (1-10), lower number is lower fuuh438ata from: https://www.neighborhoodatlas.medicine.[facility].edu/. Last address used for utoykybhlje[address]12/11/2023Sex and Gender InformationValueDate Recorded Sex Assigned at TtrngYezs00/24/2025 12:44 PM EDTLegal RoqGekr6012/05/2020 12:24 PM EDTGender BpjzhrwpVsox51/24/2025 12:44 PM EDTSexual OrientationNot on file documented as of this encounter Functional Status * Are you deaf or do you have serious difficulty hearing?AnswerDate of SfagwuqlroAsrpivSw74/11/2024 4:30 PM Sheri Guo RN * Are you blind or do you have serious difficulty seeing, even when wearing glasses?AnswerDate of RlvpknbjiiWwhkgwKt38/11/2024 4:30 PM Sheri Guo RN * Do you have serious difficulty walking or climbing stairs?AnswerDate of EjzqilhcuyKaslibNj83/11/2024 4:30 PM Sheri Guo RN * Do you have difficulty dressing or bathing?AnswerDate of AssessmentAuthorNo 12/26/2023 4:30 PM Sheri Guo RN * Because of a physical, mental, or emotional condition, do you have difficulty doing errands alone such as visiting a doctor's office or shopping?AnswerDate of TnatkewtokKpfpfvKj14/11/2024 4:30 PM Sheri Guo RN documented as of this encounter Mental Status * Because of a physical, mental, or emotional condition, do you have serious difficulty concentrating, remembering, or making decisions?AnswerEntry Date QkvwxrDz22/11/2024 4:30 PM Sheri Guo RN documented in this encounter Medications at Time of Discharge MedicationSigDispense QuantityRefillsLast FilledStart DateEnd amoxicillin-clavulanate potassium (AUGMENTIN) 875-125 mg per tablet Take 1 tablet by mouth every 12 hours. torsemide (DEMADEX) 100 mg tablet Indications:Recurrent 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,AnasarcaTake 0.5 tablets by mouth once daily. [address] (PROTONIX) 40 mg tablet Take 1 tablet by mouth once daily.02/22/2025 famotidine (PEPCID) 20 mg tablet Take 20 mg by mouth daily at bedtime.02/22/2025 quiNINE 324 mg capsule Indications:Cramp and spasmTake 1 capsule by mouth two times a day. 180 capsule 01/26/2025 mirabegron (MYRBETRIQ) 50 mg Tb24 Indications:Urge incontinenceTake 1 tablet by mouth every evening. 90 tablet 5106/26/2024 atorvastatin (LIPITOR) 10 mg tablet Take 10 [...] 10 mg by mouth once daily. calcium cwv-ppw-L6-Zn-telescope operator-kian 250 mg-40 mg- 125 unit-3.75mg tab Take by mouth. allopurinol (ZYLOPRIM) 300 mg tablet Take 300 mg by mouth once daily.1documented as of this encounter Progress Notes * [...] PATIENT PRESENTS WITH AN IMPLANTABLE OR ATTACHED WEB COORDINATOR: No RADIOLOGY DEPARTMENT: General X-ray: Exam(s) Completed: Chest X-Ray PERIPHERAL IV DATA: Not applicable SIGNED BY: RT Cleveland(Sandee) March 29, 2025 1:07 PM documented in this encounter Plan of Treatment DateTypeDepartmentCare Team (Latest Contact Info)Jhwcffnbdde41/19/2025 10:00 AM ESTAppointment Gastroenterology [address] [place] [address] Esophageal dysphagia [R13.19]05/12/2025 8:25 AM ESTOffice Visit Gastroenterology [address] [address] Luis Valentine MD [address] [facility] [place] [address] Araseli Wall Bcndyave55/26/2025 11:45 AM [place]Office [place] [address] [place] [address] [place] [address] [place], [place] [address] Follow-up05/21/2025 2:00 PM ESTOffice Visit Cardiology [address] [place] [address] [place] [address] [facility] [place] [address] 6 month follow updocumented as of this encounter Goals GoalPatient Goal TypeAssociated ProblemsRecent ProgressPatient-Stated?Author Blood Pressure < 130/80 Blood Ulgwvbwx745/82(03/24/2025 12:30 PM EDT)Sung Mosley MD documented as of this encounter Procedures Procedure NamePriorityDate/TimeAssociated DiagnosisCommentsXR CHEST 2V FRONTAL/DHGRsgcvoj50/13/2025 1:09 PM EDT Pleural effusion, not elsewhere classified documented in this encounter Results * XR CHEST 2V FRONTAL/LAT (03/29/2025 1:09 PM EDT)Anatomical RegionLaterality ModalityChestOtherSpecimen (Source)Anatomical Location / LateralityCollection Method / VolumeCollection TimeReceived Time03/29/2025 1:09 PM EDT Impressions 03/30/2025 12:40 PM EDT IMPRESSION: 1. ??Streaky scarring/discoid atelectasis in the left lower lung field, new since 01/08/25. 2. ??Trace right pleural effusion with hazy opacities in the right lung base, stable. Transcribe Date/Time: Mar 30 2025 12:34P Dictated by: KARYN BOOTH MD This examination was interpreted and the report reviewed and electronically signed by: KARYN BOOTH MD on Mar 30 2025 12:38PM ??EST Thank you for allowing us to participate in the care of your patient. Should there be any questions regarding this interpretation, please call [phone]. If you are unable to reach us at the number above, please feel free to contact [facility] at [phone]. Narrative 03/30/2025 12:40 PM EDT * * *Final Report* * * DATE OF EXAM: Mar 29 2025 ??1:09PM ?? NRX ?? 5291 ??- ??XR CHEST 2V FRONTAL/LAT ??/ PROCEDURE REASON: Pleural effusion, not elsewhere classified ? * * * * Physician Interpretation * * * * RESULT: EXAMINATION: CHEST RADIOGRAPH (2 VIEW FRONTAL & LATERAL) CLINICAL HISTORY: Pleural effusion, not elsewhere classified MQ: ??XC2_6 EXAM DATE/TIME: ??03/29/2025 1:09 PM COMPARISON: ??01/08/25 RESULT: Lines, tubes, and devices: ??None. Lungs and pleura: ??Mild elevation of the right hemidiaphragm, stable. ?? Trace right pleural effusion with hazy opacities in the right lung base, stable. ??Streaky scarring/discoid atelectasis in the left lower lung field, new. ??No pneumothorax. Cardiomediastinal silhouette: ??Normal cardiomediastinal silhouette. Bones and soft tissues: ??Unremarkable. Procedure Note Provider, [facility] - 03/30/2025 * * *Final Report* * [...] any questions regarding this interpretation, please call [phone]. If you are unable to reach us at the number above, please feel free to contact [facility] at [phone]. Authorizing ProviderResult TypeResult StatusColin Riggs MDRAD-PAMAFinal Result documented in this encounter Visit Diagnoses Diagnosis Pleural effusion, not elsewhere classified documented in this encounter Care Teams Team MemberRelationshipSpecialtyStart [place] [address] [facility] [place] [address] PCP - GeneralFamily Medicine12/29/23 Jere Sales MD [address] [address] ReferringGastroenterology12/05/20 Calin Gotti DO [address] [place] [address] Internal Medicine10/16/23documented as of this encounter
--- OUTSIDE RECORDS SUMMARY | 2025-04-09 07:09 | XMS_ITS | Continuity of Care Document ---
Author Organization [facility] Address [address] [place] [address] Phone Care Team Providers Care Bull Driver Name Role Phone aDwit Lorenz DO Primary Care Provider [phone] Yehuda Boggs DO Attending Provider Bijal Kaur MD Attending Provider Pablito Hoffman MD Attending Provider Joselin Berman CMA Attending Provider Unavaila Dawit Wilkins DO Attending Provider Care Teams Patient Care Team Team Status: Active Member Role/Relationship Status Dates Dawit Lorenz DO Primary Care Provider Active Visit Care Team Team Status: Active Member Role/Relationship Status Dates Dawit Lorenz DO Primary Care Provider Active Start: April 02, 2025 Yehuda Boggs DOAttjeri ProviderActiveStart: April 02, 2025 Visit Care Team Team Status: Active Member Role/Relationship Status Dates Dawit Lorenz DO Primary Care Provider Active Start: April 03, 2025 Dominique Chow ProviderActiveStart: April 03, 2025 Visit Care Team Team Status: Active Member Role/Relationship Status Dates Dawit Lorenz DO Primary Care Provider Active Start: April 04, 2025 Dominique Chow ProviderActiveStart: April 04, 2025 Visit Care Team Team Status: Active Member Role/Relationship Status Dates Dawit Lorenz DO Primary Care Provider Active Start: April 05, 2025 Dominique Chow ProviderActiveStart: April 05, 2025 Visit Care Team Team Status: Active Member Role/Relationship Status Dates Dawit Lorenz DO Primary Care Provider Active Start: April 06, 2025 Tiffanieluann Hoffman Dominique ProviderActiveStart: April 06, 2025 Patient Care Team Team Status: Active Member Role/Relationship Status Dates Dawit Lorenz DO Primary Care Provider Active Start: April 07, 2025 Tiffanieluann Dalton , Dominique ProviderActiveStart: April 07, 2025 Patient Care Team Team Status: Active Member Role/Relationship Status Dates Dawit Lorenz DO Primary Care Provider Active Start: April 08, 2025 Mayra Gamezjeri ProviderActiveStart: April 08, 2025 Patient Care Team Team Status: Inactive Member Role/Relationship Status Dates Dawit Lorenz DO Primary Care Provider Active Start: April 09, 2025 End: April 09melaniedarwin Lorenz Brooklynnjeri ProviderActiveStart: April 09, 2025 End: April 09, 2025 Chief Complaint and Reason for Visit Chief Complaint Admit Date Amb Documentation April 08, 2025 9 :50am TBH f/u April 09, 2025 9 :31am Reason for Visit Admit Date Anasarca April 09, 2025 9 :31am Anemia April 09, 2025 9 :31am Cellulitis April 09, 2025 9 :31am Chronic kidney disease April 09 9:31am Cirrhosis April 09, 2025 9 :31am Esophageal varices April 09, 2025 9 :31am Primary hypertension April 09, 2025 9:31am Allergies, Adverse Reactions, Alerts Allergen Type Severity Reaction Last Updated Verified Status tramadol Allergy Unknown Hallucinating April 09, 2025 9:38am Yes Active Social History Smoking Status Status Start Date End Date Date of Observa tion Never smoked tobacco (finding) August 13, 2023 11:24am Observation Status Observation Response Date of Response Legal Sex Male (finding) Sex Assigned At BirthMaleSeptember 1949 Family History Relationship Condition Age at Onset Recorded Date/T christine father Unknown motherDeceasedUnknown Problems Active Problems Problem Diagnosis/Recorded Date Onset Date Status C omments Viral respiratory illness July 14, 2024 6:24pm Unknow n Active Primary insomniaJune 2023 9:52amUnknownActiveCerumen impactionSeptember 2023 12:56pmUnknownActiveAnemiaJune 2024 7:15pmUnknownActive CellulitisOctober 2024 10:51amUnknownActiveEsophageal varicesOctober 2024 10:51amUnknownActiveCirrhosisOctober 2024 10:51amUnknownActiveChronic kidney diseaseJune 2024 7:15pmUnknownActiveLymphocytic colitisMarch 2024 10:59amUnknownActivePericardial effusionMarch 2023 10:43pmUnknown ActivePleural effusionSeptember 2023 12:57pmUnknownActivePrimary hypertensionFebruary 2023 12:20pmUnknownActiveAnasarcaOctober 2024 10:51amUnknownActiveSubacute coughFebruary 2023 12:19pmUnknownActiveNausea & vomitingFebruary 2023 6:50pmUnknownActiveHypomagnesemiaJune 2024 7:16pmUnknownActiveInactive/Resolved Problems Problem Diagnosis/Recorded Date Onset Date Status C omments Dysphagia October 21, 2020 10:29am Unknown Resolved Pro blem List clean-up per request of Phys. EHR Cmte Rectal bleed October 21, 2020 10:30am Unknown Resolved P roblem List clean-up per request of Phys. EHR Cmte Medications Medication Status Dose Units Route Directions Qty Days Refills S tart Date Stop Date End Date Reason(s) Instructions Adherence Atorvastatin 10 mg tablet Discontinued 0 .ROUTE.RUJUINB942Djbiogbo 2023 8:58pmFebruary 2024 4:42pmTAKE 1 TABLET DAILY IN THE EVENINGFluticasone Propion-Salmeterol 115-21 mcg/actuation HFA aerosol ljmwdqeBcooxtqhxnpu5ZAIRZPJQAJDNZKMkfny 12 qylkg11725Stzlrdyz 2023 1:00amFebruary 2023 10:58amFluticasone Propion-Salmeterol 115-21 mcg/actuation HFA aerosol imkarhkPbbfqqmdnnwc7NGRZSKSYJOYRQFYburj 12 btvfa34878 August 07, 2023 10:58amFebruary 2023 10:43amFluticasone Propion- Salmeterol 100-50 mcg/dose blister with deviceDiscontinued0.ROUTE.OGKPJDB903 August 08, 2023 10:43amFebruary 2023 12:21pmINHALE 1 DOSE BY MOUTH EVERY 12 HOURSAmoxicillin-Pot Clavulanate 875-125 mg qsrrutDjcfavvmjdze8RYAMU Every 12 yfasq7332Jjvct 2023 1:00amOctober 2024 9:00amPrednisone 50 mg qxahcnBrbdpl60MZQAWxlho034Igq 2023 12:00amComplies with drug therapy Zolpidem 5 mg gslgieNyfwzhjcjzbk4KMFlhyp at bedtime as needed for czaagvbu3356 December 02, 2023 12:00amJune 2023 5:33pmPrimary insomnia Primary insomnia1-2 orally daily at bedtime PRN;Zolpidem 5 mg vunearVsxebu7KN Daily at bedtime as needed for xorctpti7062Djxx 17th, 2024 5:32pmPrimary insomnia Primary insomnia1-2 orally daily at bedtime PRN;Complies with drug therapy Omeprazole 20 mg capsule,delayed release(DR/EC)Kjsigojmuesh96DBJHKnazh79604Dlzy 2023 9:40amJune 2023 5:53pmOmeprazole 20 mg capsule,delayed release(DR/EC)Discontinued0.ROUTE.UOZZXCC299Vgvp2023 5:53pmFebruary 2024 10:21pmTAKE 1 CAPSULE DAILY ON AN EMPTY STOMACH, FOLLOWED IN 30 MINUTES BY BREAKFASTAllopurinol 300 mg tabletDiscontinued0.ROUTE.JUMLTJQ485Pekp2023 12:30pmAugust 2023 1:49pmTAKE 1 TABLET DAILYAllopurinol 300 mg tablet Yzejbfxakrmh798PULVYqygf50278Srjmuq 2023 1:48pmJuly 2024 8:35am Azithromycin 250 mg prtapbCjsenhdrzemd169ZHAPHx Fpdewzxm607Zoplpixkk 2023 12:00amSeptember 2023 12:53pmAzithromycin 250 mg npqfuaGhjyibshaqwo641EMBP As Optytrlx881Mltpnbbjy 2023 12:53pmJanuary 2024 6:11pmOmeprazole 40 mg capsule,delayed release(DR/EC)Lhegojbrkxnz49WDUWXgtpt44804Jexyxfzc 2024 10:20pmFebruary 2024 10:20pmPantoprazole 40 mg tablet,delayed release (DR/EC)Xfvzulotmmwf46VIEYEyigk61472Agulgrhb 2024 1:00amJune 2024 5:40pmAtorvastatin 10 mg tabletActive0.ROUTE.QEPZSDL886Wryeiypx 2024 4:42pmOn Hold: None TAKE 1 TABLET DAILY IN THE EVENINGComplies with drug therapyAzithromycin 250 mg mgiqexUmethpqrjlkv995OCZHJo Ecngqqtx993Bpwsu 2024 2:30pmOctober 2024 9:00amCephalexin 500 mg ncqxeyoYxgdaccmsohk098LRSBPxvea times tolew7599Qnv 2024 12:00amOctober 2024 9:00amMupirocin 2 % bhruohccBrdusmkhnfgg1YYIXYH TOPICALTwice ugudv87556Aljm 2024 12:00amJuly 2024 5:58pmFamotidine 20 mg llqdzjZeqhbfrnzkbb85IHMMByvmr dmlbl59790Qrvm 2024 12:00amSeptember 2024 4:24pmSpironolactone 25 mg clzqnlDuarkeycfpwo74XEYGLhrzs00397Kwtj 2024 12:00amJuly 2024 2:45pmMupirocin 2 % dpeyjowyVbejvmkirfbm2MNDRSF TOPICALTwice bjpuh57303Pqoy 2024 5:57pmSeptember 2024 5:41pm Allopurinol 300 mg jkvcjgMriyds161XKVCHqqsm00761Mzgl 2024 8:35amComplies with drug therapySpironolactone 25 mg vtikbeQytotnyegsue85EPLGVedri63805Dwcj 2024 2:45pmJuly 2024 4:02pmSpironolactone 25 mg rveudiLvdjkvltyhkw34 ATMZDrymk62558Ehei 2024 4:02pmAugust 2024 1:06pmSpironolactone 25 mg yumcfgMfhuhs52CNWKDasnd61110Icnndb 2024 1:05pmComplies with drug therapy Pantoprazole 40 mg tablet,delayed release (DR/EC)Lmwogstraalk93NLLERfify89050 February 22, 2025 12:00amSeptember 2024 4:26pmFamotidine 20 mg tablet Rvddcmghhsmw90QBBDHwutq at ssznpua84494Hewvhwixu 8th, 2025 4:23pmSept2024 4:26pmFamotidine 20 mg vehwnpYvyggs03SWELFzbyf at xbbqfsg98584Qgdbwcsuq 8th, 2025 4:24pmComplies with drug therapyPantoprazole 40 mg tablet,delayed release (DR/EC)Izutkk78VIIEEkqoy26125Puseoturm 8th, 2025 4:25pmComplies with drug therapyMirabegron (Myrbetriq) 50 mg tablet extended release 24 woMxlmit41FV RCJdbbr30409Pocvveynk 8th, 2025 12:00amComplies with drug therapyAmoxicillin-Pot Clavulanate 875-125 mg tcegjaRfqywcwnizgy5QWWPZMtwlk 12 fckub82220Owyaozyaa 2024 12:00amOctober 2024 9:00amMupirocin 2 % zxgjefdvDqdnso1HCFGPB TOPICALTwice fmhai00958Miwymsxnk 24th, 2025 5:41pmComplies with drug therapy Cephalexin 500 mg trfirloZrmspa617ISPYBtxqm times ffity6604Nbvotug 2024 9:00amComplies with drug therapyAtorvastatin 10 mg qcmoydYntjnpsawchs21HCRQVoqrk October 21, 2020 12:00amFebruary 2023 8:58pmRanitidine Hcl 300 mg Tablet Lnvdhkrgpqac923CNAZVqvwuNjj 7th, 2021 12:00amFebruary 2023 12:21pm Tamsulosin 0.4 mg CapsuleDiscontinued0.4MGPODailyMay 2020 12:00amJune 2024 5:42pmOmeprazole 20 mg capsule,delayed release(DR/EC)Umdjszzkiozu45WRRV DailyOctober 21, 2020 12:00amJune 2023 9:40amAllopurinol 300 mg tablet Glrfddfzjpql966BYIOZiwkhZgp 7th, 2021 12:00amJuly 2023 12:30pmBenzonatate 100 mg nirchccRbnbot404BXXVXidzc times dailyFebruary 2023 1:00amComplies with drug therapyCodeine-Guaifenesin 10-100 mg/5 mL gzzuvgPllxzs65RPIYQnkri 6 hours as needed for coughFebruary 2023 1:00amComplies with drug therapy Losartan 25 mg hbrphfMlblbismcbkm64WSLMXjvusQggzzkvd 2023 1:00amJune 2024 5:40pmMeloxicam 15 mg nuqkwfQlrsndhilffp67NGIVUvvswNyjkvzeh 2023 1:00amJune 2024 5:40pmOmega-3 Fatty Acids 500 mg fmxryfnRuwkty644RCSHMdhct February 2023 1:00amComplies with drug therapyPrednisone 10 mg tablet Gmsnjxxjrlyy61BNFJEz Wjrvmruq633Xzdoefai 2023 1:00amFebruary 2023 5:26pm1 tab tid w/ food x 3 days, then bid w/ food x 3 days, than qd w/ food x 3 daysPrednisone 10 mg kwfrqzOhkvvu30YRXLXt Jsxqcxhi9839Ljcqnbet 2023 5:25pm 1 tab tid w/ food x 3 days, then bid w/ food x 3 days, than qd w/ food x 3 days Complies with drug therapyAzithromycin 250 mg siuzpbJhnmdiqnqymb470UJRRKz Fumsettn571Txqzxpb 2024 6:10pmMarch 2024 2:30pmOndansetron 4 mg tablet,ywraksuzplmrobJwednf9QQDLRjpms 8 hours as needed for nausea and vomiting 76118Luwybty 2024 1:00amComplies with drug therapy Immunizations Immunization Event Date Not Given Reason Dose Number Slitter [employer] Slot[employer] Operator Lot Number Reason(s) Given Vaccine Information Statement (VIS) Detail Administration Location COVID-19 mRNA, Comirnaty (Pfizer) August 15 COVID-19 mRNA, Comirnaty (Pfizer)September 12OVID-19 mRNA, Comirnaty (Pfizer)August 22OVID-19 mRNA, Comirnaty (Pfizer)September 13OVID-19 mRNA, Comirnaty (Pfizer)May 10, 2021Influenza, trivalentNovember 2019influenza, unspecified formulationNovember 2019Pneumococcal Conjugate Vaccine, 13 valentJune 2016Pneumococcal Polysacc. Vaccine, 23 valentAugust 2017Zoster Vaccine Recombinant, AdjuvantedMarch 2018Tetanus, Diphtheria adult, 5 Lf pres free absDecember 2017Tetanus, Diphtheria adult, 5 Lf pres free absMarch 2018 Relevant Diagnostic Tests and/or Laboratory Data Laboratory Results Test Collection Date/Time Result Date/Time Result Interpretation Reference Range Result Comment Performing Site Lactic Acid Level April 02, 2025 9:44am April 022024 9:44am 1.8 mmol/L 0.4-2.0Basophils # (Auto)April 02, 2025 9:44amOctober 2024 9:44am0.0 10 3/uL0.0-0.1Albumin/Globulin RatioOct2024 9:44amOctober 2024 9:44am0.7Anion [facility]Oct[facility] 2024 9:44amOctober 2024 9:44am15.2Urine Culture ReflexedOctober 2024 10:43pmNOC-Reactive Protein, Quantitative April 03, 2025 6:05amOctober 2024 6:05am22.38 mg/dLAbove high normal <=0.50Absolute Basophils (Manual)April 03, 2025 6:05amOctober 2024 6:05am0.19 10 3/uLAbove high normal0.00-0.10HematocritOctober 2024 6:05am 30.8 %Below low suptrj48.0-54.0Anion GapOctober 2024 6:05amOctober 2024 6:05am16.3C-Reactive Protein, QuantitativeOctober 2024 6:15amOctober 2024 6:15am16.57 mg/dLAbove high normal<=0.50Anion GapOctober 2024 6:15amOctober 2024 6:15am14.6Basophils # (Auto)April 04, 2025 6:15am April 04, 2025 6:15am0.0 10 3/uL0.0-0.1C-Reactive Protein, Quantitative April 05, 2025 5:25amOctober 2024 5:25am9.48 mg/dLAbove high normal <=0.50Anion GapOctober 2024 5:25amOctober 2024 5:25am13.3Hematocrit April 05, 2025 5:25amOctober 2024 5:25am29.1 %Below low normal 42.0-54.0C-Reactive Protein, QuantitativeOctober 2024 5:06amOctober 2024 5:06am6.70 mg/dLAbove high normal<=0.50Magnesium LevelOctober 2024 5:06amOctober 2024 5:06am2.2 mg/dL1.8-2.4Phosphorus LevelOctober 2024 5:06amOctober 2024 5:06am3.9 mg/dL2.6-4.7Anion GapOctober 2024 5:06amOctober 2024 5:06am14.1Basophils # (Auto)April 06, 2025 5:06am April 06, 2025 5:06am0.0 10 3/uL0.0-0.1Magnesium LevelOctober 2024 5:17amOctober 2024 5:17am2.2 mg/dL1.8-2.4Anion GapOctober 2024 5:17amOctober 2024 5:17am12.0Basophils # (Auto)April 07, 2025 5:17am April 07, 2025 5:17am0.0 10 3/uL0.0-0.1Basophils (%) (Auto)April 02, 2025 9:44amOctober 2024 9:44am0.2 %0.2-2.0AlbuminOct2024 9:44am April 02, 2025 9:44am3.1 g/dLBelow low normal3.4-5.0BUN/Creatinine Ratio April 02, 2025 9:44amOctober 2024 9:44am17.8Urine Other CastsOctober 2024 10:43pmSEEN #/LPFAbnormal (applies to non-numeric results)NONE SEEN Basophils %April 03, 2025 6:05amOctober 2024 6:05am2.0 %0.2-2.0 HemoglobinApril 03, 2025 6:05am9.6 g/dLBelow low byqohg42.0-18.0 BUN/Creatinine RatioOct2024 6:05amOctober 2024 6:05am23.5 Albumin/Globulin RatioOct2024 6:15amOctober 2024 6:15am0.6 Basophils (%) (Auto)April 04, 2025 6:15amOctober 2024 6:15am0.2 % 0.2-2.0BUN/Creatinine RatioApril 05, 2025 5:25amOctober 2024 5:25am 21.2HemoglobinOct2024 5:25amOctober 2024 5:25am9.4 g/dLBelow low uocjiz90.0-18.0Albumin/Globulin RatioOct2024 5:06amOctober 2024 5:06am0.6Basophils (%) (Auto)April 06, 2025 5:06amOctober 2024 5:06am0.5 %0.2-2.0Albumin/Globulin RatioOct2024 5:17amOctober 2024 5:17am0.7Basophils (%) (Auto)April 07, 2025 5:17amOctober 2024 5:17am0.5 %0.2-2.0Eosinophils # (Auto)April 02, 2025 9:44amOctober 2024 9:44am0.0 10 3/uL0.0-0.7Alkaline PhosphataseOctober 2024 9:44am April 02, 2025 9:31we895 U/U29-849Khila Urea NitrogenOctober 2024 9:44amOctober 2024 9:44am31.0 mg/dLAbove high normal7.0-18.0Urine Other CrystalsOctober 2024 10:43pmNone Seen #/HPFNone SeenEosinophils # (Manual) April 03, 2025 6:05amOctober 2024 6:05am0.00 10 3/uL0.00-0.70Mean Corpuscular HemoglobinOctober 2024 6:05am30.2 pg25.9-34.0Blood Urea NitrogenOctober 2024 6:05amOctober 2024 6:05am31.0 mg/dLAbove high normal7.0-18.0AlbuminOctober 2024 6:15amOctober 2024 6:15am2.7 g/dL Below low normal3.4-5.0Eosinophils # (Auto)April 04, 2025 6:15amOctober 2024 6:15am0.0 10 3/uL0.0-0.7Blood Urea NitrogenOctober 2024 5:25am April 05, 2025 5:25am28.0 mg/dLAbove high normal7.0-18.0Mean Corpuscular HemoglobinOctober 2024 5:25amOctober 2024 5:25am31.1 pg25.9-34.0 AlbuminOctober 2024 5:06amOctober 2024 5:06am2.4 g/dLBelow low normal3.4-5.0Eosinophils # (Auto)April 06, 2025 5:06amOctober 2024 5:06am0.0 10 3/uL0.0-0.7AlbuminOctober 2024 5:17amOctober 2024 5:17am2.5 g/dLBelow low normal3.4-5.0Eosinophils # (Auto)April 07, 2025 5:17amOctober 2024 5:17am0.0 10 3/uL0.0-0.7Eosinophils (%) (Auto)April 02, 2025 9:44amOctober 2024 9:44am0.1 %Below low normal0.9-7.0Alanine Aminotransferase (ALT/SGPT)April 02, 2025 9:44amOctober 2024 9:44am21 U/O80-54Bcufbsk LevelOctober 2024 9:44amOctober 2024 9:44am9.1 mg/dL 8.5-10.1Urine BacteriaOctober 2024 10:43pmNONE SEEN #/HPFNONE SEEN Eosinophils %April 03, 2025 6:05amOctober 2024 6:05am0.0 %Below low normal0.9-7.0Mean Corpuscular Hemoglobin ConcentOctober 2024 6:05am31.2 g/dL29.9-35.2Calcium LevelOctober 2024 6:05amOctober 2024 6:05am8.6 mg/dL8.5-10.1Alkaline PhosphataseOctober 2024 6:15amOctober 2024 6:15am91 U/Q90-025Zjunvwyadif (%) (Auto)April 04, 2025 6:15amOctober 2024 6:15am0.0 %Below low normal0.9-7.0Calcium LevelOctober 2024 5:25am April 05, 2025 5:25am8.4 mg/dLBelow low normal8.5-10.1Mean Corpuscular Hemoglobin ConcentOctober 20th, 2025 5:25amOctober 2024 5:25am32.3 g/dL 29.9-35.2Alkaline PhosphataseOct2024 5:06amOctober 2024 5:06am 92 U/G43-096Hdahbuiminc (%) (Auto)April 06, 2025 5:06amOctober 2024 5:06am0.0 %Below low normal0.9-7.0Alkaline PhosphataseOct2024 5:17am April 07, 2025 5:17am93 U/K56-345Udljdwlwive (%) (Auto)April 07, 2025 5:17amOctober 2024 5:17am0.0 %Below low normal0.9-7.0HematocritOctober 2024 9:44amOctober 2024 9:44am34.3 %Below low vicxrh45.0-54.0 Aspartate Amino Transf (AST/SGOT)April 02, 2025 9:44amOctober 2024 9:44am13 U/LBelow low lhiuul42-01Vmjnfxlf LevelOctober 2024 9:44amOctober 2024 9:77mj163 mmol/H10-080Fljbs BilirubinOctober 2024 10:43pm NEGATIVENEGATIVELymphocytes # (Manual)April 03, 2025 6:05amOctober 2024 6:05am0.98 10 3/uLBelow low normal1.20-3.80Mean Corpuscular VolumeOct2024 6:05am96.9 fLAbove high pilqvy13.0-94.0Chloride LevelOctober 2024 6:05amOctober 2024 6:32kx132 mmol/W82-917Tetvwhh Aminotransferase (ALT/SGPT)April 04, 2025 6:15amOctober 2024 6:15am20 U/L16-63 HematocritOctober 2024 6:15amOctober 2024 6:15am32.0 %Below low awkplo80.0-54.0Chloride LevelOctober 2024 5:25amOctober 2024 5:25am 102 mmol/A00-144Omwq Corpuscular VolumeOct2024 5:25amOctober 2024 5:25am96.4 fLAbove high zvxusq77.0-94.0Alanine Aminotransferase (ALT/SGPT) April 06, 2025 5:06amOctober 2024 5:06am25 U/J00-25BcgjwmypdmCsymcjg 2024 5:06amOctober 2024 5:06am30.3 %Below low cpihip54.0-54.0Alanine Aminotransferase (ALT/SGPT)April 07, 2025 5:17amOctober 2024 5:17am21 U/L35-65MuxdemtzzeWsmfrsb 2024 5:17amOctober 2024 5:17am31.6 %Below low wcmpid60.0-54.0HemoglobinOct2024 9:44amOctober 2024 9:44am 11.1 g/dLBelow low yhites71.0-18.0Direct BilirubinOctober 2024 9:44am April 02, 2025 9:44am0.5 mg/dLAbove high normal0.0-0.2Carbon Dioxide Level April 02, 2025 9:44amOctober 2024 9:44am24.6 mmol/L21.0-32.0Urine Occult BloodOctober 2024 10:43pmNEGATIVENEGATIVELymphocytes %April 03, 2025 6:05amOctober 2024 6:05am10.0 %Below low bxzgjo57.5-60.0Mean Platelet VolumeOctober 2024 6:05am10.4 fL9.5-13.5Carbon Dioxide LevelOctober 2024 6:05amOctober 2024 6:05am24.6 mmol/L21.0-32.0Aspartate Amino Transf (AST/SGOT)April 04, 2025 6:15amOctober 2024 6:15am<5 U/LBelow low sunecm19-75OrwmmdrltcKzxwjzd 2024 6:15amOctober 2024 6:15am10.2 g/dL Below low nsvepg70.0-18.0Carbon Dioxide LevelOct2024 5:25amOctober 2024 5:25am25.9 mmol/L21.0-32.0Mean Platelet VolumeOct2024 5:25amOct2024 5:25am9.7 fL9.5-13.5Aspartate Amino Transf (AST/SGOT) April 06, 2025 5:06amOctober 2024 5:06am4 U/LBelow low -32 HemoglobinOct2024 5:06amOctober 2024 5:06am9.8 g/dLBelow low sritcn13.0-18.0Aspartate Amino Transf (AST/SGOT)April 07, 2025 5:17amOctober 2024 5:17am<5 U/LBelow low cqqagc24-00BljdedhtjgRqfoirz 22nd, 2025 5:17am April 07, 2025 5:17am10.0 g/dLBelow low .0-18.0Immature Granulocyte # (Auto)April 02, 2025 9:44amOctober 2024 9:44am0.06 10 3/uLAbove high normal0.00-0.03GlobulinOct2024 9:44amOctober 2024 9:44am4.6 g/dLCreatinineOct2024 9:44amOctober 2024 9:44am1.74 mg/dLAbove high normal0.70-1.30Urine AppearanceOctober 2024 10:43pmCLEARCLEAR Monocytes # (Manual)April 03, 2025 6:05amOctober 2024 6:05am0.39 10 3/uL0.30-0.80Platelet CountOct2024 6:64ct140 10 3/pB370-766Cpywtdxmmi April 03, 2025 6:05amOctober 2024 6:05am1.32 mg/dLAbove high normal 0.70-1.30BUN/Creatinine RatioOctober 2024 6:15amOctober 2024 6:15am 22.7Immature Granulocyte # (Auto)April 04, 2025 6:15amOctober 2024 6:15am0.06 10 3/uLAbove high normal0.00-0.03CreatinineApril 05, 2025 5:25am April 05, 2025 5:25am1.32 mg/dLAbove high normal0.70-1.30Platelet Count April 05, 2025 5:25amOctober 2024 5:24wj115 10 3/bX919-035 BUN/Creatinine RatioOct2024 5:06amOctober 2024 5:06am19.7 Immature Granulocyte # (Auto)April 06, 2025 5:06amOctober 2024 5:06am 0.08 10 3/uLAbove high normal0.00-0.03BUN/Creatinine RatioOct2024 5:17amOctober 2024 5:17am17.0Immature Granulocyte # (Auto)April 07, 2025 5:17amOctober 2024 5:17am0.12 10 3/uLAbove high normal0.00-0.03 Immature Granulocyte % (Auto)April 02, 2025 9:44amOctober 2024 9:44am 0.5 %0.0-0.5Total BilirubinOct2024 9:44amOctober 2024 9:44am1.6 mg/dLAbove high normal0.2-1.0Estimated GFR ()April 02, 2025 9:44amOct2024 9:42sy84Jzlih low normal>=60 mL/min/1.73m 2Urine Color April 02, 2025 10:43pmYELLOWYELLOWMonocytes %April 03, 2025 6:05am April 03, 2025 6:05am4.0 %1.7-12.0Red Blood CountOct2024 6:05am 3.18 10 6/uLBelow low normal4.70-6.10Estimated GFR ()April 03, 2025 6:05amOctober 2024 6:05am>60>=60 mL/min/1.73m 2Blood Urea NitrogenOctober 2024 6:15amOctober 2024 6:15am34.0 mg/dLAbove high normal7.0-18.0Immature Granulocyte % (Auto)April 04, 2025 6:15amOctober 2024 6:15am0.6 %Above high normal0.0-0.5Estimated GFR () April 05, 2025 5:25amOctober 2024 5:25am>60>=60 mL/min/1.73m 2Red Blood CountOct2024 5:25amOctober 2024 5:25am3.02 10 6/uLBelow low normal4.70-6.10Blood Urea NitrogenOct2024 5:06amOctober 2024 5:06am25.0 mg/dLAbove high normal7.0-18.0Immature Granulocyte % (Auto) April 06, 2025 5:06amOctober 2024 5:06am1.2 %Above high normal0.0-0.5 Blood Urea NitrogenOctober 2024 5:17amOctober 2024 5:17am24.0 mg/dL Above high normal7.0-18.0Immature Granulocyte % (Auto)April 07, 2025 5:17am April 07, 2025 5:17am1.6 %Above high normal0.0-0.5Lymphocytes # (Auto) April 02, 2025 9:44amOctober 2024 9:44am0.9 10 3/uLBelow low normal 1.2-3.8Total ProteinOct2024 9:44amOctober 2024 9:44am7.7 g/dL 6.4-8.2Estimated GFR (Non- AmericanOctober 2024 9:44amOctober 2024 9:02mv75Kuwln low normal>=60 mL/min/1.73m 2Urine Glucose (UA)April 02, 2025 10:43pmNEGATIVE mg/dLNEGATIVESegmented Neutrophils # (Manual)April 03, 2025 6:05amOctober 2024 6:05am8.23 10 3/uLAbove high normal1.4-6.5Red Cell Distribution WidthOctober 2024 6:05am15.9 %Above high ellspy85.0-15.0 Estimated GFR (Non- AmericanOctober 2024 6:05amOctober 2024 6:65ff14Eiolx low normal>=60 mL/min/1.73m 2Calcium LevelOctober 2024 6:15amOctober 2024 6:15am8.7 mg/dL8.5-10.1Lymphocytes # (Auto)April 04, 2025 6:15amOctober 2024 6:15am0.9 10 3/uLBelow low normal1.2-3.8 Estimated GFR (Non- AmericanOctober 2024 5:25amOctober 2024 5:41rf16Zvggm low normal>=60 mL/min/1.73m 2Red Cell Distribution WidthOctober 2024 5:25amOctober 2024 5:25am15.9 %Above high rnanpk72.0-15.0 Calcium LevelOctober 2024 5:06amOctober 2024 5:06am8.4 mg/dLBelow low normal8.5-10.1Lymphocytes # (Auto)April 06, 2025 5:06amOctober 2024 5:06am0.9 10 3/uLBelow low normal1.2-3.8Calcium LevelOctober 2024 5:17amOctober 2024 5:17am8.5 mg/dL8.5-10.1Lymphocytes # (Auto)April 07, 2025 5:17amOctober 2024 5:17am0.8 10 3/uLBelow low normal1.2-3.8 Lymphocytes (%) (Auto)April 02, 2025 9:44amOctober 2024 9:44am7.3 % Below low .5-60.0Glucose LevelOctober 2024 9:44amOctober 2024 9:24zw127 mg/dLAbove high vwanyr10-184Tymtf Hyaline CastsOctober 2024 10:43pmFEWSegmented NeutrophilsOctober 2024 6:05amOctober 2024 6:05am84.0Above high xtmfok52.0-75.0Corrected White Blood CountOctober 2024 6:05am9.8 10 3/uL4.0-11.0Glucose LevelOctober 2024 6:05amOctober 2024 6:58lz507 mg/hV72-255Emkljwcu LevelOctober 2024 6:15amOctober 2024 6:58sd147 mmol/J66-173Bccjhyspwjy (%) (Auto)April 04, 2025 6:15am April 04, 2025 6:15am8.8 %Below low blsoxe99.5-60.0Glucose LevelOctober 2024 5:25amOctober 2024 5:60qk866 mg/fV00-309Vqtylitek White Blood CountOctober 2024 5:25amOctober 2024 5:25am7.1 10 3/uL4.0-11.0 Chloride LevelOctober 2024 5:06amOctober 2024 5:33dm766 mmol/L98-107 Lymphocytes (%) (Auto)April 06, 2025 5:06amOctober 2024 5:06am13.6 % Below low oyojtb01.5-60.0Chloride LevelOctober 2024 5:17amOctober 2024 5:84bi295 mmol/B11-175Pvvskzkcokt (%) (Auto)April 07, 2025 5:17am April 07, 2025 5:17am10.8 %Below low mwuzyv82.5-60.0Mean Corpuscular HemoglobinOctober 2024 9:44amOctober 2024 9:44am31.3 pg25.9-34.0 Potassium LevelOctober 2024 9:44amOctober 2024 9:44am4.8 mmol/L 3.5-5.1Urine KetonesOctober 2024 10:43pmNEGATIVE mg/dLNEGATIVEPotassium LevelOctober 2024 6:05amOctober 2024 6:05am3.9 mmol/L3.5-5.1Carbon Dioxide LevelOctober 2024 6:15amOctober 2024 6:15am25.9 mmol/L 21.0-32.0Mean Corpuscular HemoglobinOctober 2024 6:15amOctober 2024 6:15am30.9 pg25.9-34.0Potassium LevelOctober 2024 5:25amOctober 2024 5:25am3.2 mmol/LBelow low normal3.5-5.1Carbon Dioxide LevelOctober 2024 5:06amOctober 2024 5:06am25.3 mmol/L21.0-32.0Mean Corpuscular Hemoglobin April 06, 2025 5:06amOctober 2024 5:06am31.1 pg25.9-34.0Carbon Dioxide LevelOctober 2024 5:17amOctober 2024 5:17am23.4 mmol/L21.0-32.0Mean Corpuscular HemoglobinOctober 2024 5:17amOctober 2024 5:17am30.4 pg 25.9-34.0Mean Corpuscular Hemoglobin ConcentOctober 2024 9:44amOctober 2024 9:44am32.4 g/dL29.9-35.2Sodium LevelOctober 2024 9:44amOctober 2024 9:39zd367 mmol/B170-638Wkrfy Leukocyte EsteraseOctober 2024 10:43pmNEGATIVENEGATIVESodium LevelOctober 2024 6:05amOctober 2024 6:38pk376 mmol/D501-516XejaxapyyxObxnwol 2024 6:15amOctober 2024 6:15am1.50 mg/dLAbove high normal0.70-1.30Mean Corpuscular Hemoglobin Concent April 04, 2025 6:15amOctober 2024 6:15am31.9 g/dL29.9-35.2Sodium Level April 05, 2025 5:25amOctober 2024 5:95fc065 mmol/S260-234Lzffduxouv April 06, 2025 5:06amOctober 2024 5:06am1.27 mg/dL0.70-1.30Mean Corpuscular Hemoglobin ConcentOct2024 5:06amOctober 2024 5:06am 32.3 g/dL29.9-35.2CreatinineOctober 2024 5:17amOctober 2024 5:17am 1.41 mg/dLAbove high normal0.70-1.30Mean Corpuscular Hemoglobin ConcentOctober 2024 5:17amOctober 2024 5:17am31.6 g/dL29.9-35.2Mean Corpuscular VolumeOctober 2024 9:44amOctober 2024 9:44am96.6 fLAbove high normal 80.0-94.0Urine MucusOctober 2024 10:43pmNONE SEENNONE SEENEstimated GFR ()April 04, 2025 6:15amOctober 2024 6:18rf64Nhjpd low normal>=60 mL/min/1.73m 2Mean Corpuscular VolumeOctober 2024 6:15amOctober 2024 6:15am97.0 fLAbove high ziqcru62.0-94.0Estimated GFR ()April 06, 2025 5:06amOctober 2024 5:06am>60>=60 mL/min/1.73m 2Mean Corpuscular VolumeOctober 2024 5:06amOctober 2024 5:06am96.2 fLAbove high klkuzv72.0-94.0Estimated GFR ()April 07, 2025 5:17amOctober 2024 5:17am60>=60 mL/min/1.73m 2Mean Corpuscular Volume April 07, 2025 5:17amOctober 2024 5:17am96.0 fLAbove high normal 80.0-94.0Monocytes # (Auto)April 02, 2025 9:44amOctober 2024 9:44am0.9 10 3/uLAbove high normal0.3-0.8Urine NitriteOctober 2024 10:43pmNEGATIVE NEGATIVEEstimated GFR (Non- AmericanOctober 2024 6:15amOctober 2024 6:99ss11Xmzsd low normal>=60 mL/min/1.73m 2Monocytes # (Auto)April 04, 2025 6:15amOctober 2024 6:15am1.0 10 3/uLAbove high normal0.3-0.8 Estimated GFR (Non- AmericanOctober 2024 5:06amOctober 2024 5:78oo99Mpoyi low normal>=60 mL/min/1.73m 2Monocytes # (Auto)April 06, 2025 5:06amOctober 2024 5:06am0.8 10 3/uL0.3-0.8Estimated GFR (Non- AmericanOctober 2024 5:17amOctober 2024 5:31vn48Bdekn low normal>=60 mL/min/1.73m 2Monocytes # (Auto)April 07, 2025 5:17amOctober 2024 5:17am0.9 10 3/uLAbove high normal0.3-0.8Monocytes (%) (Auto)April 02, 2025 9:44amOctober 2024 9:44am6.9 %1.7-12.0Urine pHOctober 2024 10:43pm 5.55.0-9.0GlobulinOctober 2024 6:15amOctober 2024 6:15am4.2 g/dL Monocytes (%) (Auto)April 04, 2025 6:15amOctober 2024 6:15am9.6 % 1.7-12.0GlobulinOctober 2024 5:06amOctober 2024 5:06am3.9 g/dL Monocytes (%) (Auto)April 06, 2025 5:06amOctober 2024 5:06am12.9 % Above high normal1.7-12.0GlobulinOctober 2024 5:17amOctober 2024 5:17am3.7 g/dLMonocytes (%) (Auto)April 07, 2025 5:17amOctober 2024 5:17am11.4 %1.7-12.0Mean Platelet VolumeOctober 2024 9:44amOctober 2024 9:44am10.4 fL9.5-13.5Urine ProteinOctober 2024 10:43pm30 mg/dL Abnormal (applies to non-numeric results)NEG/TRACEGlucose LevelOctober 2024 6:15amOctober 2024 6:37pz980 mg/dLAbove high -926Yubz Platelet VolumeOctober 2024 6:15amOctober 2024 6:15am10.2 fL9.5-13.5 Glucose LevelOctober 2024 5:06amOctober 2024 5:06am98 mg/zD87-758 Mean Platelet VolumeOctober 2024 5:06amOctober 2024 5:06am9.8 fL 9.5-13.5Glucose LevelOctober 2024 5:17amOctober 2024 5:17am92 mg/dL 74-106Mean Platelet VolumeOctober 2024 5:17amOctober 2024 5:17am9.7 fL9.5-13.5Neutrophils # (Auto)April 02, 2025 9:44amOctober 2024 9:44am 10.8 10 3/uLAbove high normal1.4-6.5Urine RBCOctober 2024 10:43pmNONE SEEN #/HPF0-2Potassium LevelOctober 2024 6:15amOctober 2024 6:15am3.5 mmol/L3.5-5.1Neutrophils # (Auto)April 04, 2025 6:15amOctober 2024 6:15am8.3 10 3/uLAbove high normal1.4-6.5Potassium LevelOctober 2024 5:06amOctober 2024 5:06am3.4 mmol/LBelow low normal3.5-5.1Neutrophils # (Auto)April 06, 2025 5:06amOctober 2024 5:06am4.7 10 3/uL1.4-6.5 Potassium LevelOctober 2024 5:17amOctober 2024 5:17am3.4 mmol/LBelow low normal3.5-5.1Neutrophils # (Auto)April 07, 2025 5:17amOctober 2024 5:17am5.7 10 3/uL1.4-6.5Neutrophils (%) (Auto)April 02, 2025 9:44amOctober 2024 9:44am85.0 %Above high vmfthi09.0-75.0Urine Specific GravityOctober 2024 10:43pm1.0251.005-1.025Sodium LevelOctober 2024 6:15amOctober 2024 6:22ai576 mmol/T359-057Clotwaabytr (%) (Auto)April 04, 2025 6:15amOctober 2024 6:15am80.8 %Above high lrvawx34.0-75.0Sodium Level April 06, 2025 5:06amOctober 2024 5:88an399 mmol/C132-319Jyyvqbmgxhw (%) (Auto)April 06, 2025 5:06amOctober 2024 5:06am71.8 %43.0-75.0 Sodium LevelOctober 2024 5:17amOctober 2024 5:28oa676 mmol/X344-622 Neutrophils (%) (Auto)April 07, 2025 5:17amOctober 2024 5:17am75.7 % Above high uvxvap21.0-75.0Platelet CountOctober 2024 9:44amOctober 2024 9:20hn539 10 3/zR771-653Rrilt Squamous Epithelial CellsOctober 2024 10:43pmRARE #/LPFNONE/RARETotal BilirubinOctober 2024 6:15amOctober 2024 6:15am0.8 mg/dL0.2-1.0Platelet CountOctober 2024 6:15amOctober 2024 6:72np067 10 3/mW014-959Kzwre BilirubinOctober 2024 5:06amOctober 2024 5:06am0.7 mg/dL0.2-1.0Platelet CountOctober 2024 5:06amOctober 2024 5:85il748 10 3/vU680-296Wcuuh BilirubinOctober 2024 5:17am April 07, 2025 5:17am0.6 mg/dL0.2-1.0Platelet CountOctober 2024 5:17am April 07, 2025 5:72rc821 10 3/yS484-319Hvd Blood CountOctober 2024 9:44amOctober 2024 9:44am3.55 10 6/uLBelow low normal4.70-6.10Urine UrobilinogenOctober 2024 10:43pm0.2 EU/dL0.2-1.0Total ProteinOctober 2024 6:15amOctober 2024 6:15am6.9 g/dL6.4-8.2Red Blood CountOctober 2024 6:15amOctober 2024 6:15am3.30 10 6/uLBelow low normal4.70-6.10Total ProteinOctober 2024 5:06amOctober 2024 5:06am6.3 g/dLBelow low normal6.4-8.2Red Blood CountOctober 2024 5:06amOctober 2024 5:06am 3.15 10 6/uLBelow low normal4.70-6.10Total ProteinOctober 2024 5:17am April 07, 2025 5:17am6.2 g/dLBelow low normal6.4-8.2Red Blood CountOctober 2024 5:17amOctober 2024 5:17am3.29 10 6/uLBelow low normal4.70-6.10 Red Cell Distribution WidthOctober 2024 9:44amOctober 2024 9:44am 16.0 %Above high .0-15.0Urine WBCOctober 2024 10:43pmNONE SEEN #/HPFNONE SEENRed Cell Distribution WidthOctober 2024 6:15amOctober 2024 6:15am15.9 %Above high dlurgh54.0-15.0Red Cell Distribution WidthOctober 2024 5:06amOctober 2024 5:06am15.9 %Above high moulph36.0-15.0Red Cell Distribution WidthOctober 2024 5:17amOctober 2024 5:17am15.8 % Above high olqcvi22.0-15.0Corrected White Blood CountOctober 2024 9:44am April 02, 2025 9:44am12.7 10 3/uLAbove high normal4.0-11.0Corrected White Blood CountOctober 2024 6:15amOctober 2024 6:15am10.2 10 3/uL 4.0-11.0Corrected White Blood CountOctober 2024 5:06amOctober 2024 5:06am6.5 10 3/uL4.0-11.0Corrected White Blood CountOctober 2024 5:17am April 07, 2025 5:17am7.5 10 3/uL4.0-11.0 Vital Signs Vital Reading Result Reference Range Collection Date/Time Height 72 [in_i] April 09, 2025 9:07xlBustfm85.96 kgOct2024 9:42amHeart Uwmp288 /qzw96-556PmaubpfApril 09, 2025 9:42amRespiratory rate12 /byf45-34Letegjl 2024 9:42amBP Iusearzg944 mm[Hg]100-140April 09, 2025 9:42amBP Hmquqvled74 mm[Hg]60-100[facility] 9:42amBMI (Body Mass Index)29.9 kg/p4Yafmpxz 2024 9:42am Advance Directives Advance Directive Response Recorded Date/ Time Advance Directives No October 19, 2020 11:13am Insurance Providers Guarantor Bryan Harris Address [address] [place] [address] Info.Home Phone: Payer Group Member ID Coverage Type Subscriber Relationship to Subscriber Effective Date Expiration Date [employer] SARINA PFFS Id: [id number] E Moyer Id: [id number] [address] [place] [address] Home Phone: Email: [email or web address] Encounters Encounter Location(s) Arrival/Admit Date Discharge/Departure Date Discharge/Departure Disposition Provider(s) Non-patient / Non-visit -Located Within [facility] O ctober 2024 9:44am Nilson Henderson-patient / Jve-ysiqh-Iihcg [facility] 6:05Reinaldo Emmanuel-patient / Iei-dvpky-Tsgzx [facility] 2024 6:15Reinaldo Emmanuel-patient / Dvz-fgvpu-Pwhsw [facility] 2024 5:25Reinaldo Emmanuel-patient / Pzx-uknck-Qbamz [facility] 2024 5:06am David Guadalupe-patient / Vgh-grwns-Wosio [facility] 22nd, 2025 5:17amMohamanilson Hoffman MDNon-patient / [facility] 9:50amCatkofi Berman CMADeparted Physician/Provider Office Visit-[facility] 2024 9:31amOctober 2024 11:07amDischarged to home care or self care (routine discharge)Dawit Lorenz , DO Recent Diagnosis Onset Date Admit Date Anasarca Unknown April 09 9:31am Anemia Unknown April 09 9:31am Cellulitis Unknown April 09 9:31am Chronic kidney disease Unknown March 182024 9:31am Cirrhosis Unknown April 09 9:31am Esophageal varices Unknown April 09, 2025 9:31am Primary hypertension Unknown March 9:31am Assessments Diagnosis Onset Date Resolution Status Admit Date Anasarca acuteOctober 2024 9:31amAnemiaacuteOctober 2024 9:31amCellulitis acuteOctober 2024 9:31amChronic kidney diseaseacuteOctober 2024 9:31amCirrhosisacuteOctober 2024 9:31amEsophageal varicesacuteOctober 2024 9:31amPrimary hypertensionacuteOctober 2024 9:31am Plan of Treatment Author Dawit Lorenz [facility] 2024 11:00amSecondary to aggressive diuretic therapy for anasarca/cirrhosis Instructed to avoid salt and fluid restrict to 48oz daily. Avoid NSAIDs Secondary to nutritional deficit. Encouraged to consume small, frequent meals Monitor for GIB Secondary to MASLD? Esophageal varices are present but not bleeding - scheduled for banding Increase Spironolactone to 100mg Add Torsemide until at dry weight Monitor for bleeding Control BP Scheduled for banding procedure Instructed on salt restricted diet. Instructed on fluid restriction to 48oz Increase Spironolactone to 100mg qd Restart Torsemide - give 100mg today w/ subsequent doses based on weight loss Check CMP and Mg in 4 days Continue outpatient antibiotics Monitor for gradual improvement If fails to continue improvement, may require extended IV antibiotics Consider infected knee prosthesis f/u Podiatry Refer to ID I have instructed this patient to consume a healthy, low-fat, low-salt diet. I have also encouraged them to continue exercise with weight loss to achieve/maintain a BMI < 30. I have instructed this patient on the correct procedure for obtaining home BP measurements:? - rest for 5 minutes w/o talking. - positioned w/ feet on floor and arms supported. - average best 2/3 readings w/ goal < 135/85. Update office w/ home readings in 2 weeks. Future Tests Future scheduled test information is unavailable Pending Tests Test Name Ordered Date Scheduled Date Comprehensive Metabolic Panel April 09, 2025 10:34am Future Visits Future appointment information is unavailable Future Procedures Procedure Name Ordered Date Scheduled Date Complete Blood Count Auto Diff April 09 10:34am MagnesiumOct2024 10:34am Future Medications Future medication information is unavailable Patient Instructions Patient instructions are unavailable
--- OUTSIDE RECORDS SUMMARY | 2025-04-12 09:33 | XMS_ITS | Clinical Summary ---
Author Organization [facility] Address [address] [place] [address] Care Team Providers Care Cashiers Supervisor Name Role Phone Dawit Lorenz Primary Care Provider [phone] Allergies Active AllergyReactionsCriticalityNoted DateCommentsOxycodone-Acetaminophen Gcsfpdi7903/13/2016 Other Reaction(s): Other (See Comments) Urinary retention Hallucinations TramadolShortness of breath,VessnydOhzn73/10/2015 Other Reaction(s): Mental Status Change Medications MedicationSigDispense QuantityRefillsLast FilledStart DateEnd DateStatus allopurinol (Zyloprim) 300 MG tablet Take 300 mg by mouth at bedtimeActive atorvastatin (Lipitor) 10 MG tablet Take 10 mg by mouth at bedtimeActive traZODone (Desyrel) 100 MG tablet Take 100 mg by mouth at bedtimeActive torsemide (Demadex) 100 MG tablet Take 100 mg by mouth DailyActive spironolactone (Aldactone) 25 MG tablet Take by mouth DailyActive potassium chloride ER (Micro-K) 10 MEQ ER capsule Take 20 mEq by mouth in the morning and 20 mEq before bedtime. Do not crush or chew.Active CALCIUM MAGNESIUM ZINC PO Take by mouthActive quiNINE (Qualaquin) 324 MG capsule Take 324 mg by mouth every 8 (eight) hoursActive pantoprazole (ProtoNix) 40 MG EC tablet Take 40 mg by mouth in the morning. Take before meals. Do not crush, chew, or split.Active famotidine (Pepcid) 20 MG tablet Take by mouthActive mirabegron ER (Myrbetriq) 50 MG 24 hr tablet Take 50 mg by mouth at bedtime Do not crush, chew, or split.Active Ascorbic Acid (vitamin C) 500 MG tablet Take 500 mg by mouth DailyActive Multiple Vitamins-Minerals (MULTIVITAMIN ADULTS 50+ PO) Take by mouthActive Dextromethorphan-guaiFENesin (MUCINEX DM PO) Take by mouthActive Loratadine (CLARITIN PO) Take 10 mg by mouthActive Active Problems ProblemNoted DateDiagnosed DateEarly dry stage nonexudative age-related macular degeneration of both eyes08/12/2024Dry eyes08/12/2024lepharitis of upper and lower eyelids of both eyes08/12/2024ilateral posterior capsular opacification 08/12/2024halazion of left upper lrylxi0608/12/2024 Encounters DateTypeDepartmentCare TeyjDdiypwwurfz96/09/2025 11:15 AM EDTOffice Visit [facility] [address] [place] [phone] Uzair Lubin DPM 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, stage 2 ([facility]) (Primary Dx); Cellulitis of left foot; Pain in toe of left foot; Difficulty imrmhol3503/25/2025amboo flowsheet [facility] [address] [place] [phone] Uzair Lubin DPM 03/25/20253660Fjxwkw72/08/5782Qwtlmd34/01/2025 10:15 AM EDTOffice Visit [facility] [address] [place] [phone] Uzair Lubin DPM 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, stage 2 ([facility]) (Primary Dx); Cellulitis of left foot; Pain in toe of left foot; Difficulty bamtsue6103/17/2025amboo flowsheet [facility] [address] [place] [phone] Uzair Lubin DPM 03/17/20256296Rqvhot96/30/3121Sixuwx16/26/2025 9:50 AM EDTAncillary Procedure [facility] [address] [place] [address] 03/12/2025 8:45 AM EDTOffice Visit [facility] [address] [place] [address] Uzair Lubin, DPM 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, stage 2 (CMS-HCC) (Primary Dx); Cellulitis of left foot; Pain in toe of left foot; Difficulty hhbzaoz2003/12/2025amboo flowsheet [facility] [address] [place] [address] Uzair Lubin DPM 03/12/20255773Komqcp66/25/2025Travelfrom Last 3 Months Immunizations ImmunizationAdministration DatesNext DueInfluenza, High Dose Seasonal, Preservative Free05/27/2024Influenza, trivalent, xiffbxhari81/23/2020 Pneumococcal Conjugate PCV 13011/26/2016Pneumococcal Polysaccharide PPSV23 02/03/2018RSV, recombinant, protein subunit RSVpreF, adjuvant reconstitu, 120mcg/0.5mL, PF (Arexvy)05/27/2024Td (adult), 5 Lf tetanus toxoid, preservative free, zidblyuv62/16/2019,06/04/2018Tdap107/28/2023Zoster, Wcbzvkpsebg05/16/2019 Family History Medical HistoryRelationNameCommentsMelanomaNeg Hx Social History Tobacco UseTypesPacks/DayYears UsedDateSmoking Tobacco: NeverSmokeless Tobacco: Never Tobacco Cessation:Counseling Given: Not Answered Sex and Gender InformationValueDate RecordedSex Assigned at BirthNot on file Legal TnhQbmk7508/29/2022 7:25 PM EDTGender IdentityNot on fileSexual Orientation Not on file Last Filed Vital Signs Vital SignReadingTime TakenCommentsBlood Pressure--Pulse--Temperature-- Respiratory Rate--Oxygen Saturation--Inhaled Oxygen Concentration--Vtqxsk12.5 kg (188 lb 9.6 oz)03/25/2025 11:17 AM KUIWpejbi051.9 cm (6')03/25/2025 11:17 AM EDT Body Mass Index25.5810/02/2025 11:17 AM EDT Plan of Treatment DateTypeDepartmentCare Team (Latest Contact Info)Tuyypxssxrx97/29/2025 4:15 PM EDTProcedure Visit [facility] [address] [place] [phone] Uzair Lubin, DPM [address] [place] [address] 08/16/2025 1:30 PM ESTOffice Visit [facility] [address] [place] [address] Arley Hamilton DO [address] [place] [address] 08/31/2025 1:05 PM EDTOffice Visit [facility] [address] [place] [address] Bianca Bynum MD [address] [place] [address] Health MaintenanceDue DateLast DoneCommentsCT Tcxjmnyazyyg1951FIT-DNA 1950FIT1951FOBT03/13/19514924Jejavrdxmkbmm1951Influenza Vaccine (#1)/04/2024, 05/09/20203980Nuuqcfqtlgb45/12/33648306/28/2023, 04/28/2024, 4Colorectal Cancer Elzrpsrlj23/12/2034Pneumococcal Vaccine: 65+ Years Ooeadeetc26/20/2018, 11/26/2016 Procedures Procedure NamePriorityDate/TimeAssociated DiagnosisCommentsXR FOOT 3+ VIEWS LEFT Bytjwpl8803/12/2025 9:49 AM EDT 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, stage 2 (CMS-HCC) Cellulitis of left foot from Last 3 Months Results * XR foot 3+ views left (03/12/2025 9:49 AM EDT)Anatomical RegionLaterality ModalityLower Extremities, FootLeftRadiographic ImagingSpecimen (Source) Anatomical Location / LateralityCollection Method / VolumeCollection Time Received Time Narrative 03/12/2025 9:50 AM EDT Imaging Result: 3 views left foot: Weight-bearing: DP, oblique, lateral: 03/12/2025: Unremarkable for acute osseous or joint pathology. ?? Unremarkable for fracture or stress fracture changes. ??There are no distinct lytic or erosive changes of the distal phalanx 2nd digit. ?? 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 Authorizing ProviderResult TypeResult StatusStevedwin Lubin DPMIMG XR PROCEDURES Final Result from Last 3 Months Insurance Care Teams Team MemberRelationshipSpecialtyStart DateEnd Date Dawit Lorenz DO [address] [place] [address] PCP - GeneralInternal Medicine03/12/25
--- OUTSIDE RECORDS SUMMARY | 2025-04-12 09:33 | XMS_ITS | Clinical Summary ---
Author Organization [facility] Address [address] [place] [address] Care Team Providers Care Palm And Back Forger Name Role Phone Dawit Lorenz DO Primary Care Provider [phone] Dawit Lorenz DO Unavailable [phone] Karthik Calloway MD Unavailable Unavail able Allergies Active AllergyReactionsCriticalityNoted DateCommentsOxycodone-AcetaminophenOther (See Comments)2016 Urinary retention Hallucinations TramadolShortness Of DilzduVhdi59/10/2015 Medications MedicationSigDispense QuantityRefillsLast FilledStart DateEnd DateStatus omeprazole (PRILOSEC) 20 MG capsule Take 1 (one) capsule (20 mg total) by mouth every morning .Active allopurinol (ZYLOPRIM) 300 MG tablet Take 1 (one) tablet (300 mg total) by mouth at bedtime .Active atorvastatin (LIPITOR) 10 MG tablet Take 1 (one) tablet (10 mg total) by mouth nightly .Active aspirin 81 MG EC tablet Take 1 (one) tablet (81 mg total) by mouth at bedtime .Active loratadine (CLARITIN) 10 mg tablet Take 1 (one) tablet (10 mg total) by mouth every evening .Active ASCORBATE CALCIUM (VITAMIN C ORAL) Take 1 tablet by mouth every morning .Active BIOTIN ORAL Take 1 tablet by mouth every morning .Active multivitamin (THERAGRAN) per tablet Take 1 (one) tablet by mouth every morning .Active polycarbophil (FIBERCON) 625 mg tablet Take 1 (one) tablet (625 mg total) by mouth every morning .Active vit A-vit C-vit I-fatm-zqyfdt 7160-614-100 mglf-il-rfrl Tab Take 1 tablet by mouth every morning .Active tamsulosin (FLOMAX) 0.4 mg capsule Take 1 (one) capsule (0.4 mg total) by mouth daily .Active GUAIFENESIN/DEXTROMETHORPHAN (MUCINEX DM ORAL) Take by mouth.Active fluorouraciL (EFUDEX) 5 % cream 07/12/2020ctive ciprofloxacin HCl (CILOXAN) 0.3 % ophthalmic solution INSTILL 1 DROP INTO AFFECTED EYE 4 TIMES DAILY10/04/2022ctive ketorolac (ACULAR) 0.5 % ophthalmic solution INSTILL 2 DROPS INTO AFFECTED EYE TWICE DAILY10/01/2022ctive prednisoLONE acetate (PRED FORTE) 1 % ophthalmic suspension INSTILL 1 DROP INTO AFFECTED EYE INTO AFFECTED EYE 4 TIMES DAILY DIRECTED 10/01/2022ctive meloxicam (MOBIC) 15 MG tablet Take 1 (one) tablet (15 mg total) by mouth as needed . 90 tablet 05/13/2023ctive amoxicillin (AMOXIL) 500 MG capsule Take 4 capsules one hour prior to dental procedure/cleaning . 4 capsule ctive diclofenac sodium 1% (Voltaren Arthritis Pain) 1 % Gel Apply 2 (two) g topically 4 (four) times a day as needed for pain Apply 2 grams to affected area upto 4 times a day as needed for pain. . 300 g 5Active Active Problems ProblemNoted DateDiagnosed DateUrinary nkabkbdup32/11/2017 Assessment & Plan (06/27/2016 12:19 PM EST): POD # 2 s/p right total knee arthroplasty with development of acute UR postoperatively requiring clement catheter placement. Hx of postop UR in the past. -UA neg today -Flomax and urecholine started -Indwelling clement placed today -Recommend home with flomax and clement. Plans for TOV next week as outpatient once mobility improvesand he is having reg BMs. -His TOV has been scheduled for , 07/05/16 @ 130pm at our [facility] office. S/P total knee ovjtdupplawp20/09/5646Lldaxbjklhsbwe20/09/2017Primary osteoarthritis of left knee08/02/2015Retention of urine08/25/2014cute blood loss hwrjsa7708/24/20142717Odycjvyjpjzd09/10/2015Osteoarthritis of left knee08/23/2014 Assessment & Plan (08/23/2014 1:29 PM EDT): Postoperative day of surgery left total knee arthroplasty. Enteric coated aspirin--deep venous thrombosis prophylaxis per primary surgical service. Analgesia: Percocet + IV hydromorphone as needed for breakthrough pain. Other and unspecified ztwxiefdrukfid32/09/2015 Assessment & Plan (08/23/2014 1:30 PM EDT): Hyperlipidemia-controlled on statin--continue postop. Aukhwin5008/23/2014 Overview (03/17/2015): Updated per ICD10 Conversion Assessment & Plan (08/23/2014 1:32 PM EDT): Body mass index is 30.49 kg/(m^2). No risk factors for MAU. Family History Medical HistoryRelationCommentsHeart diseaseFatherAnesthesia problemsNeg Hx Clotting disorderNeg HxDeep vein thrombosisNeg HxPulmonary embolismNeg Hx Surgical complicationsNeg HxRelationStatusCommentsFather Social History Tobacco UseTypesPacks/DayYears UsedDateSmoking Tobacco: NeverSmokeless Tobacco: Never Tobacco Cessation:Counseling Given: Not Answered Alcohol UseStandard Drinks/WeekCommentsYes0 (1 standard drink = 0.6 oz pure alcohol)occasionallySex and Gender InformationValueDate RecordedSex Assigned at BirthNot on fileLegal DopDayd8102/09/2014 1:03 PM EDTGender IdentityNot on file Sexual OrientationNot on file Last Filed Vital Signs Vital SignReadingTime TakenCommentsBlood Tdrgwhrb956/76006/29/2016 7:30 AM EST Cavqe7512 7:30 AM YRQJryovzewyev24.9 ??C (98.4 ??F)06/29/2016 7:30 AM ESTRespiratory Yijq360206/29/2016 7:30 AM ESTOxygen Vpwkhpzflj10%06/29/2016 7:30 AM ESTInhaled Oxygen Concentration--Getwwj58.8 kg (220 lb)02/11/2023 3:16 PM EDT Cqhycv045.9 cm (6')02/11/2023 3:16 PM EDTBody Mass Index29.8402/11/2023 3:16 PM EDT Plan of Treatment Health MaintenanceDue DateLast DoneCommentsCT Uzsyjcbscmku1950Colonoscopy 1Colorectal Cancer Screening/Vzynegmmwk1950Fecal DNA1950 Fecal occult blood test (FOBT,FIT)1PSA Level1951Medicare Wellness Visit4Depression Screening/Follow-Up (PHQ-2/9)1963Hepatitis C Ozojsqjgh32/27/1969Flexible rqdzeyammizgd33/27/2001Falls Risk Assessment 2016Tetanus/Diphtheria/Pertussis (1 - Tdap), 06/04/2018Zoster Vaccines (2 of 2)COVID-19 Vaccine (4 - season)/, 09/13/2020, 08/22/2020Influenza Vaccine (#1)/, 05/09/2020RSV Vaccines (1 - 1-dose 75+ series) 2026Pneumococcal Vaccine: 50+ LlzejQljlguiov06/20/2018, 11/26/2016HIB VaccinesAged OutNo longer eligible based on patient's age to complete this topic HPV VaccinesAged OutNo longer eligible based on patient's age to complete this topicHepatitis A VaccinesAged OutNo longer eligible based on patient's age to complete this topicHepatitis B VaccinesAged OutNo longer eligible based on patient's age to complete this topicIPV VaccinesAged OutNo longer eligible based on patient's age to complete this topicMeningococcal ACWY VaccineAged OutNo longer eligible based on patient's age to complete this topicMeningococcal B VaccineAged OutNo longer eligible based on patient's age to complete this topic Rotavirus VaccinesAged OutNo longer eligible based on patient's age to complete this topic Medical Devices ImplantedTypeAreaManufacturerDevice IdentifierShelf Expiration DateModel / Serial / LotCement 1 X 40 Palacos Bone Single - [id number] Implanted:Qty: 2 on 08/23/2014 [facility]: CjrsDvuszb84/31/[id number] / / [id number] Short Cemented Persona - [id number] Implanted:Qty: 1 on 08/23/2014 by Karthik Calloway MD at [facility]09/23/[id number] / / [id number] Sz F Tib 5deg Nonpor Lt Persona - [id number] Implanted:Qty: 1 on 08/23/2014 by Karthik Calloway MD at [facility] [id number] / / [id number] Sz9 Lt Nrw Ps Cmt Ccr Persona - [id number] Implanted:Qty: 1 on 08/23/2014 by Karthik Calloway MD at [id number] / / [id number] 32mm All Poly Persona - [id number] Implanted:Qty: 1 on 08/23/2014 by Karthik [facility]alloway MD at [id number] / / [id number] Surf Ef 6-9 14mm Lt Ps Vivacit-E Persona - [id number] Implanted:Qty: 1 on 08/23/2014 by Karthik Calloway MD at [facility]09/23/2017923595-4469-286-02 / / [id number] Hv With Gentamicin Cement Implanted:Qty: 2 on 06/25/2016 by [facility] DukkDYCTMUVVP30/31/[id number] / / [id number] Sz F Tib 5deg Nonpor Rt Persona - [id number] Implanted:Qty: 1 on 06/25/2016 by [id number] / / [id number] Sz9 Rt Nrw Ps Cmt Ccr Persona - [id number] Implanted:Qty: 1 on 06/25/2016 by [id number] / / [id number] Short Cemented Persona - [id number] Implanted:Qty: 1 on 06/25/2016 by [id number] / / [id number] 32mm All Poly Vivacit-E - [id number] Implanted:Qty: 1 on 06/25/2016 by [facility] [place] [id number] / / [id number] Surf 14mm 6-9ef Rt Cps Ve Persona - [id number] Implanted:Qty: 1 on 06/25/2016 by [id number] / / [id number]xnatpJnlbzm IdentifierShelf Expiration DateModel / Serial / LotHeaded Screw Explanted:Qty: 4 on 08/23/2014 by [facility]: NvrjUljoqm72/28/[id number] / / [id number] Female Hex Screw Explanted:Qty: 1 on 08/23/2014 by [facility]: GzpzJjqrqy12/31/[id number] / / [id number] Screw Explanted:Qty: 1 on 08/23/2014 [facility] SnefSltojk32/31/[id number] / / Insurance * Guarantor: Bryan Harriscoprosper TypeRelation to PatientDate of BirthPhone Billing AddressPersonal/QfdsemVeov1950 [phone] (Home) [address] [place] [address] Advance Directives For more information, please contact: [phone] * Full Code (Latest Code Status on File) Date ActivatedDate InactivatedComments06/25/2016 1:54 PM06/29/2016 3:41 PM * Full Code Date ActivatedDate InactivatedComments08/23/2014 6:45 AM08/25/2014 7:58 PM Care Teams Team MemberRelationshipSpecialtyStart DateEnd Date Dawit Lorenz DO [address] [place] [address] PCP - GeneralInternal Medicine06/29/14 Dawit Lorenz DO [address] [place] [address] Internal Medicine06/29/14 Karthik Calloway MD [address] [place] [address] Consulting PhysicianOrthopedic Surgery01/28/17
--- OUTSIDE RECORDS SUMMARY | 2025-04-12 09:33 | XMS_ITS | Clinical Summary ---
Author Organization [facility] Address [id number] [address] [place] [address] Care Team Providers Care Accounts Clerk Name Role Phone Unavailable Primary Care Provider Unavailabl e Social History Tobacco UseTypesPacks/DayYears UsedDateSmoking Tobacco: Never AssessedChildcare AnswerDate ImckpndoIferjutonIcqtuwi45/12/2019EmploymentAnswerDate Recorded ZicgrncgjjBmghanl79/12/2019Sex and Gender InformationValueDate RecordedSex Assigned at BirthNot on fileLegal XugAnbj2501/20/2015 11:57 AM EDTGender Identity Not on fileSexual OrientationNot on file Plan of Treatment Not on file Medical Devices Not on file
--- OUTSIDE RECORDS SUMMARY | 2025-04-12 09:33 | XMS_ITS | Encounter Summary ---
Author Organization [facility] Address [address] [place] [address] Care Team Providers Care Central Supply Tech Name Role Phone Jere Sales MD Unavailable [phone] Calin Gotti DO Unavailable [phone] Jose Antonio Meyers MD Primary Care Provider [phone] Source Comments In the event this information is protected by the Federal Confidentiality of Alcohol and Drug AbusePatient Records regulations: The Federal rules restrict any use of the information to criminally investigate or prosecute any alcohol or drug abuse patient.[facility] Reason for Referral * Outpatient Procedure (Routine) - AuthorizedSpecialtyDiagnoses / Procedures Referred By ContactReferred To [facility] Diagnoses Esophageal dysphagia Esophageal dysmotility Procedures EGD - THERAPEUTIC, EUS, OR TUBE INTERVENTIONS EGD BAND LIGATION ESOPHGEAL/GASTRIC VARICES Sue Terrell MD [address] [place] [address] Phone: tel: fax: [facility] [address] [place] [address] Referral IDStatusReasonStart DateExpiration DateVisits RequestedVisits [id number] Auto-Generated Referral / Encounter Details DateTypeDepartmentCare Team (Latest Contact Info)Hwulswnmtau63/08/2025Results Follow-Up Gastroenterology [address] [id number] Sue Terrell MD [address] [place] [address] Social History Tobacco UseTypesPacks/DayYears UsedDateSmoking Tobacco: NeverSmokeless Tobacco: NeverAlcohol UseStandard Drinks/WeekCommentsYes0 (1 standard drink = 0.6 oz pure alcohol)socially, no drink since HC UtilitiesAnswerDate RecordedIn the past 12 months has the [employer], gas, oil, or water [employer] threatened to shut off services in your [...] steady place to sleep or slept in ashelter (including now)?No11/21/2023rea Deprivation IndexAnswerDate RecordedNational Score (1-100), lower number is lower trqy388412/11/2023State Score (1-10), lower number is lower sdbs913ata from: https://www.neighborhoodatlas.[facility].edu/. Last address used for ykxdalmelpv[address]12/11/2023Sex and Gender InformationValueDate Recorded Sex Assigned at WrmpbHkat29/24/2025 12:44 PM EDTLegal GyrUulc3012/05/2020 12:24 PM EDTGender RdcxvhgeCgvo11/24/2025 12:44 PM EDTSexual OrientationNot on file documented as of this encounter Functional Status * Are you deaf or do you have serious difficulty hearing?AnswerDate of LdgpmymmhuQofvifWc28/11/2024 4:30 PM Sheri Guo RN * Are you blind or do you have serious difficulty seeing, even when wearing glasses?AnswerDate of ZhfhcbrjviPllwhrZt03/11/2024 4:30 PM Sheri Guo RN * Do you have serious difficulty walking or climbing stairs?AnswerDate of EyiuznepntSbzaumDp91/11/2024 4:30 PM Sheri Guo RN * Do you have difficulty dressing or bathing?AnswerDate of AssessmentAuthorNo 12/26/2023 4:30 PM Sheri Guo RN * Because of a physical, mental, or emotional condition, do you have difficulty doing errands alone such as visiting a doctor's office or shopping?AnswerDate of ExcfnxozfqUsuveyZb71/11/2024 4:30 PM Sheri Guo RN documented as of this encounter Mental Status * Because of a physical, mental, or emotional condition, do you have serious difficulty concentrating, remembering, or making decisions?AnswerEntry Date BoiddoDv89/11/2024 4:30 PM Sheri Guo RN documented in this encounter Miscellaneous Notes * Telephone Encounter - Britney Hsu RN - 03/30/2025 3:46 PM EDT Chest XR 03/29/2025 IMPRESSION: 1. Streaky scarring/discoid atelectasis in the left lower lung field, new since 01/08/25. 2. Trace right pleural effusion with hazy opacities in the right lung base, stable. Patient sent Incujectorhart message with update of patient status Based on patient current status advised patients (Virgen) he should go to ED to be evaluated. stated patient PCP is aware and had patient have a chest xray to r/o a pleurral effusion. Will discuss with provider and follow up as needed. Patients verbalized understanding and agreed. Britney Shen RN * Telephone Encounter - Britney Hsu RN - 03/25/2025 8:56 AM EDT ----- Message from Sue Terrell MD sent at 03/24/2025 5:04 PM EDT ----- Please order EGD for variceal banding ----- Message ----- From: Katie Latham Orcaterina Ib Sent: 03/24/2025 12:13 PM EDT To: Sue Terrell MD documented in this encounter Plan of Treatment DateTypeDepartmentCare Team (Latest Contact Info)Qlilzdibsqo50/19/2025 10:00 AM ESTAppointment Gastroenterology [address] [address] Esophageal dysphagia [R13.19]05/12/2025 8:25 AM ESTOffice Visit Gastroenterology [address] [address] Luis Valentine MD [address] [place] [address] Araseli Wall Kyrzlhpx83/26/2025 11:45 AM [place]Office [place] [address] [facility] [place] [address] [place] [address] [facility] [place] [address] Follow-up05/21/2025 2:00 PM ESTOffice Visit Cardiology [address] [place] [address] [place] [address] [facility] [place] [address] 6 month follow upNameTypePriorityAssociated DiagnosesOrder ScheduleEGD - THERAPEUTIC, EUS, OR TUBE INTERVENTIONSEndoscopyRoutine Esophageal dysphagia Esophageal dysmotility 1 Occurrences starting 03/25/2025 until 03/25/2026documented as of this encounter Goals GoalPatient Goal TypeAssociated ProblemsRecent ProgressPatient-Stated?Author Blood Pressure < 130/80 Blood Utnacsjr619/82(03/24/2025 12:30 PM EDT)Sung Mosley MD documented as of this encounter Visit Diagnoses Diagnosis Esophageal dysphagia- Primary Dysphagia, pharyngoesophageal phase Esophageal dysmotility Dyskinesia of esophagus documented in this encounter Care Teams Team MemberRelationshipSpecialtyStart [place] [address] [facility] [place] [address] PCP - GeneralFamily Medicine12/29/23 Jere Sales MD [address] [address] ReferringGastroenterology12/05/20 Calin Gotti DO [address] [place] [address] Internal Medicine10/16/23documented as of this encounter
--- OUTSIDE RECORDS SUMMARY | 2025-04-12 09:34 | XMS_ITS | Clinical Summary ---
Author Organization [facility] Address [address] [place] [id number] Care Team Providers Care Unattended Ground Sensor Specialist Name Role Phone Jere Sales MD Unavailable Calin Gotti DO Unavailable [phone] Jose Antonio Meyers MD Primary Care Provider [phone] Allergies Active AllergyReactionsCriticalityNoted DateCommentsAdhesive Tape-Silicones Jdeupsramon81/19/2025 Pt developed petechiae/blood blister/skin tear from EKG stickers. TramadolMental Status VviruaOuk51/01/2021 Medications MedicationSigDispense QuantityRefillsLast FilledStart DateEnd DateStatus allopurinol (ZYLOPRIM) 300 mg tablet Take 300 mg by mouth once daily.10/21/2020ctive calcium hvx-igs-I5-Zn-endoscopy registered nurse-kian 250 mg-40 mg- 125 unit-3.75mg tab Take by mouth.Active ascorbic acid, vitamin C, (VITAMIN C) 500 mg tablet Take 1,000 mg by mouth once daily.Active multivit-min/ferrous fumarate (MULTI VITAMIN ORAL) Take 1 tablet by mouth once daily.Active guaifenesin/dextromethorphan (MUCINEX DM ORAL) Take by mouth two times a day.Active loratadine (CLARITIN) 10 mg tablet Take 10 mg by mouth once daily.Active atorvastatin (LIPITOR) 10 mg tablet Take 10 mg by mouth once daily.Active quiNINE 324 mg capsule Indications:Cramp and spasmTake 1 capsule by mouth two times a day. 180 capsule 5Active mirabegron (MYRBETRIQ) 50 mg Tb24 Indications:Urge incontinenceTake 1 tablet by mouth every evening. [address] (PROTONIX) 40 mg tablet Take 1 tablet by mouth once daily.5Active famotidine (PEPCID) 20 mg tablet Take 20 mg by mouth daily at bedtime.5Active torsemide (DEMADEX) 100 mg tablet Indications:Recurrent 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,AnasarcaTake 0.5 tablets by mouth once daily. 90 tablet 512/5Active amoxicillin-clavulanate potassium (AUGMENTIN) 875-125 mg per tablet Take 1 tablet by mouth every 12 hours.Active potassium chloride ER (KLOR-CON M20) 20 mEq tablet Indications:HypokalemiaTake 2 tablets by mouth three times a day. 540 tablet /Expired Active Problems Patient Care Coordination No te Formatting of this note migh t be different from the original. Indication for Surgery: Pleural effusion of unknown etiology Preop LVEF: 67% RVF: Normal Important/Relevant PMH/PSH: 73 year old with a PmHX significant for HTN, hyperlipidemia, gout, GERDand pleural effusion Preoperative Hospital Course: Patient seen 07/2023 for a few months lasting cough. He had a chest CTon 08/15/23 showing moderate R pleural effusion. He [...] completely resolved on last CT. Now present tosurgery for pleurodesis. Airway Difficulty: Grade I - No special instrumentation Pacing Wires: No Chronological List of Surgeries and Major Events (Diagnosis): (Surgeries in bold characters) 11/20/2023: SURGERY:R VATS Pleural biopsy, R watch mechanic and doxycycline pleurodesis, R Pleurx catheter [...] prophylaxis: lovenox 40 mg subQ daily, ALICE franklin while in house -Follow final pathology HTN: [...] - Controlled with current regimen of Fent CONSUMER CREDIT COUNSELOR, Tylenol 1000 mg q6hrs, oxycodone 5-10 mg [...] Anticipate discharge to home once clinically stable. ProblemNoted DateDiagnosed DateStage 3a chronic kidney fhuazof4801/26/2025KI (acute kidney injury)10/15/2024Esophageal flpobajvt94/10/2025Lymphocytic colitis 05/19/2024Lung pywfnq8105/19/20247303Vsbccjvpp04/01/2024hronic cough03/17/2024History of vglhgrarbrey99/10/2024Elevated sedimentation rate07/10/2024Elevated C- reactive protein (CRP)12/25/2023Generalized edema12/20/2023rimary hypertension 12/20/2023leural effusion, not elsewhere ljagynwbax14/05/2024ostoperative pain 11/21/2023leural xwqqsfil60/05/2024Obesity, Class I, BMI 30-34.9010/25/2023 Resolved Problems ProblemNoted DateDiagnosed DateResolved DateRaynaud's phenomenon without /04/2024 Encounters DateTypeDepartmentCare TbkrZeuojsbtpkd91/13/2025 12:55 PM EDT - 03/29/2025 11:59 PM EDTHospital Encounter Radiology [address] [place] [address] [place] [address] Pleural effusion, not elsewhere classified [J90] Discharge Disposition: Home03/24/2025 11:30 AM EDTNurse Visit Gastroenterology [address] [place] [address] 2, Nurse Gi Lab Esophageal xlkjwxpoy53/08/2025 9:38 AM EDT - 03/24/2025 11:59 PM EDTHospital Encounter Gastroenterology [address] [place] [address] [phone] Aure Giraldo MD Esophageal dysmotility [K22.4] Discharge Disposition: Home03/24/2025Results Follow-Up Gastroenterology [address] [place] [phone] Sue Terrell MD 03/18/2025Orders Only Gastroenterology [address] [address] Sue Terrell MD Esophageal dysphagia (Primary Dx)03/17/2025 Patient Msg Gastroenterology [address] [place] [phone] Provider, [facility] EGD Prep Iqyedpnsjfvm79/01/2025 Preprocedure Call Gastroenterology [address] [place] [phone] Evans King RN 03/17/2025 Patient Msg Gastroenterology [address] [place] [phone] Aure Giraldo MD upper endoscopy 4:30 PM EDTOffice Visit Gastroenterology [address] [place] [phone] Sue Terrell MD Esophageal dysmotility (Primary Dx); Esophageal jyvwdixbe72/23/2025 1:15 PM [place]TOff[place] [address] [place] [address] Jose Antonio Meyers MD Mixed connective tissue disease (HCC) (Primary Dx); Bruising; Primary hypertension; Stage 3a chronic kidney disease (HCC); Peripheral edema; Recurrent 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; Fgpnhqhv96/19/2014Imofdq84/18/2025Telephone Thoracic Clinic [address] [place] [phone] Ronaldo Ramos MD, PhD Faxed Discharge Home Care Order03/03/2025Orders [place] [address] [place], [place] [phone] Jose Antonio Meyers MD Generalized edema (Primary Dx); Pleural nrxnipbt58/11/2025 10:20 AM EDTOffice Visit [facility] [address] [place] [phone] Ar Suarez MD FLOYD (acute kidney injury) (Primary Dx); Screening for genitourinary condition; Elevated serum creatinine; Decreased GFR; Generalized edema; Pleural effusion, not elsewhere iocovkjlyk02/11/2025Patient Outreach [facility] [address] [place] [phone] Ar Suarez MD 02/20/2025 Get Medical Advice Gastroenterology [address] [place] [phone] Araseli Wall APRN.CURT Harris 1:11 PM EDT - 02/19/2025 11:59 PM EDTHospital Encounter Radiology [address] [address] Other ascites [R18.8] Discharge Disposition: Home02/19/2025 Patient [facility] [place] [address] Salud Trinh RPh At your next appointment, choose [facility].02/19/2025 Patient [facility] [place] [address] Salud Trinh [facility] At your next appointment, choose [facility].02/17/2025 Get Medical Advice Gastroenterology [address] [address] Araseli Wall, LETICIA.CURT Harris. Patient [facility] Gastroenterology [address] [address] Araseli Wall APRN.TECHNICAL LABORATORY ASST Biopsy follow up02/10/2025 Get Medical Advice Gastroenterology [address] [place] [phone] Araseli Wall, AUTOMATED TELLER MANAGER.CURT Harris. 9:30 AM EDT - 02/02/2025 11:20 AM EDTSurgery Angio [address] [place] [address] Isaiah Pinto MD TRANSCATHETER ZGEHHD9102/02/2025 7:05 AM EDT - 02/02/2025 11:30 AM EDTHospital Encounter HOSP [facility] [address] [place] [address] Isaiah Pinto MD Elevated alkaline phosphatase level [R74.8] Discharge Disposition: Home02/02/20255430Eagxis11/12/2025 1:00 PM [place]TOffice [place] [address] [address] Jose Antonio Meyers MD Metabolic encephalopathy (Primary Dx); Stage 3a chronic kidney disease (HCC); Primary hypertension; Lymphocytic colitis; Generalized edema; Orthostatic hypotension; Cramp and spasm; Urge gqjioyonyzao14/12/2025 Patient Msg Angio [address] [place] [address] Provider, Ccf Instructions for procedure [place] [address] [address] [place] [address] Jose Antonio Meyers MD 01/12/2025[place] [address] [address] [place] [address] Jose Antonio Meyers MD Refill Xkkbyde0901/11/2025 9:30 AM EDTOffice Visit Pulmonary Medicine [address] [place] [address] Triston Riggs MD Pleural effusion (Primary Dx); Pleuritis; Pericardial effusion (noninflammatory) (HCC); History of pericarditis; Lymphocytic colitisfrom Last 3 Months Immunizations ImmunizationAdministration DatesNext DueCO original vaccine, age 12+ yr, monovalent (PFIZER-BIONTECH - PURPLE TOP)09/13/2020,08/22/2020,08/15/2020 influenza (HD-IIV3) vaccine, age 65+ yr, high dose, trivalent, PF (FLUZONE HIGH-DOSE)05/27/2024influenza (IIV3) vaccine, trivalent (AFLURIA, FLULAVAL, FLUVIRIN, FLUZONE)05/27/2024influenza (aIIV3) vaccine, age 65+ yr, trivalent, PF (FLUAD)05/09/2020influenza vaccine, unspecified jlevsivjvdy36/23/2020 pneumococcal conjugate (PCV13) vaccine, 13 valent (PREVNAR 13)11/26/2016 pneumococcal polysaccharide (PPV23) vaccine, 23 valent (PNEUMOVAX 23)02/03/2018 respiratory syncytial virus (RSV) vaccine, adjuvanted (AREXVY)05/27/2024tetanus diphtheria (Td) vaccine, age 7+ yr, 5 Lf tetanus, PF (TENIVAC)08/30/2018, 06/04/2018tetanus diphtheria pertussis (Tdap) vaccine, age 7+ yr (ADACEL, BOOSTRIX)05/27/2024zoster (RZV) vaccine, recombinant (SHINGRIX)08/30/2018 Family History Medical HistoryRelationCommentsHeartFatherColon CancerNo Family HistoryRelation StatusCommentsFather Social History Tobacco UseTypesPacks/DayYears UsedDateSmoking Tobacco: NeverSmokeless Tobacco: Never Tobacco Cessation:Counseling Given: Not Answered Alcohol UseStandard Drinks/WeekCommentsYes0 (1 standard drink = 0.6 oz pure alcohol)socially, no drink since HC UtilitiesAnswerDate RecordedIn the past 12 months has the electric, gas, oil, or water Augment threatened to shut off services in your [...] RecordedNational Score (1-100), lower number is lower idps884912/11/2023State Score (1-10), lower number is lower fiah329ata from: https://www.neighborhoodatlas.medicine.[facility]/. Last address used for wphueqwpjmg[address]12/11/2023Sex and Gender InformationValueDate Recorded Sex Assigned at LcaubNncu92/24/2025 12:44 PM EDTLegal UrnHcdf6612/05/2020 12:24 PM EDTGender NdkaxnzaCwpj95/24/2025 12:44 PM EDTSexual OrientationNot on file Last Filed Vital Signs Vital SignReadingTime TakenCommentsBlood Qppacrwm676/8203/24/2025 12:30 PM EDT Azkmj834303/24/2025 12:30 PM KGWZqyjuhdjhkb09.8 ??C (96.4 ??F)03/24/2025 10:53 AM EDTRespiratory Jdwy4419 12:30 PM EDTOxygen Esccgtswlm91%03/24/2025 12:30 PM EDTInhaled Oxygen Concentration--Yewezj79.5 kg (195 lb)03/24/2025 10:53 AM VSFYhccmp773.9 cm (6')03/24/2025 10:53 AM EDTBody Mass Index26.451 10:53 AM EDT Plan of Treatment DateTypeDepartmentCare Team (Latest Contact Info)Paikrufbrkc69/19/2025 10:00 AM ESTAppointment Gastroenterology [address] [phone] Esophageal dysphagia [R13.19]05/12/2025 8:25 AM ESTOffice Visit Gastroenterology [address] [address] Luis Valentine MD [address] [facility] [place], [place] [phone] Araseli Wall Mhvxqkug17/26/2025 11:45 AM [place]Office [place] [address] [place] [address] [place] [address] [place] [address] Follow-up05/21/2025 2:00 PM ESTOffice Visit Cardiology [address] [facility] [phone] [place] [address] [facility]. [place] [phone] 6 month follow upHealth MaintenanceDue DateLast DoneCommentsAnxiety Screening 1969Depression Hujqpzsqr99/27/1969Hepatitis A Vaccine (1 of 2 - Risk 2- dose series)1970CT Qneukskhgzqw42/27/1996Cologuard (FIT-DNA)1996 Fecal Occult Blood03/13/19969499Gzcbgxmfehvmx00/27/1996Hepatitis B Vaccine (1 of 3 - Risk 3-dose series)2011dvance Directive Vvcspubylx40/01/2025Medicare Advantage Annual Wellness Visit06/17/2024ovid-19 Vaccine ( season) /, 09/13/2020, 08/22/2020, Additional history existsInfluenza Vaccine (#1)/04/2024, 05/27/2024, 05/09/2020, Additional history tlskkuZrpzwbmruhm57/12/202511/05/2024, 04/28/2024olorectal Cancer Screening 04/28/2025Hemoglobin/Zguwuebhaw11/11/422065/04/2025, 01/08/2025, 11/12/2024, Additional history existsAnnual PCP Team Chronic Disease Visit03/09/2026 03/09/2025Serum Bhnbpojgly30/10/720908, 03/05/2025, 02/11/2025, Additional history existsDiabetes Lqrbzjrdd53, 03/05/2025, 02/11/2025, Additional history existsLipid Hvpfjifbp45/07/2023, 12/20/2023TaP,Tdap,Td Vaccine (2 - Td or Tdap), 08/30/2018, 06/04/2018Pneumococcal Vaccine: 50+Anfewbtus43/20/2018, 11/26/2016Shingrix ZfvijhwXlkdetxwzcot19/16/2019RSV DziqthgZropaeeir52/11/2024Hepatitis C Screening Vunhvippl03/25/2025, 11/17/2024, 11/17/2024 Goals GoalPatient Goal TypeAssociated ProblemsRecent ProgressPatient-Stated?Author Blood Pressure < 130/80 Blood Ulwcknit558/82(03/24/2025 12:30 PM EDT)Sung Mosley MD Medical Devices ImplantedTypeAreaManufacturerDevice IdentifierShelf Expiration DateModel / Serial / LotCatheterCatheterRight: ChestDescription:Pleur-x catheterJoint - Knee Joint - KneeBilateral: Bone - KneeScrewScrewRight: Bone - Wrist Procedures Procedure NamePriorityDate/TimeAssociated DiagnosisCommentsXR CHEST 2V FRONTAL/AGYShsowgb04/13/2025 1:09 PM EDT Pleural effusion, not elsewhere classified PLATELET AGGREGATION AWQMNDIxxackn06/10/2025 10:42 AM EDT Bruising EXTRA LAV MAN COAG AIBZJpyaugf09/10/2025 10:42 AM EDT Bruising PLATELET LBJKYUEXZDBZyjymel00/10/2025 10:42 AM EDT Bruising PLATELET AGGREGATION QZNXVTwhcfkv94/10/2025 10:42 AM EDT Bruising BASIC METABOLIC NTWILAfrfqoc33/10/2025 10:42 AM EDT Stage 3a chronic kidney disease (HCC) EGD - THERAPEUTIC, EUS, OR TUBE TCRVUTDZGLKQKMwfdqgz56/08/2025 11:48 AM EDT Esophageal dysmotility MANOMETRY IUAGHASCBEEiswghk96/08/2025 Esophageal dysphagia COMPREHENSIVE METABOLIC IQMCNPmvqajq96/19/2025 11:14 AM EDT Generalized edema Pleural effusion UA DIP, URINE (POC)Meqsfjb1702/25/2025 10:05 AM EDT Screening for genitourinary condition US DOPPLER ITGONRQPVgcwpjp17/05/2025 1:47 PM EDT Other ascites US ABD LIVER DSMIPWAEDscpmks51/05/2025 1:47 PM EDT Other ascites COMPREHENSIVE METABOLIC MMJFMJosbwqj21/28/2025 11:12 AM EDT Stage 3a chronic kidney disease (HCC) IR TRANSJUGULAR LIVER BX W/CHFZWOucaqjm10/19/2025 10:19 AM EDT Elevated alkaline phosphatase level SURGICAL RTMBXKSFZWmyhgjn52/19/2025 10:11 AM EDT Elevated alkaline phosphatase level TRANSVASCULAR JABLQN2502/02/2025 8:40 AM EDT Elevated alkaline phosphatase level MAGNESIUM YYASavtvpz12/11/2025 11:00 AM EDT Hypomagnesemia BASIC METABOLIC DSGJPSycdykf27/11/2025 11:00 AM EDT Dyslipidemia COMPLETE BLOOD GVGVVDfzreln44/11/2025 11:00 AM EDT Anemia, unspecified type HEPATITIS C ANTIBODY IA WITH SRPQLFADRHBHQwwxbum72/25/2025 12:33 PM EDT Elevated alkaline phosphatase level CHOLESTEROL VTVUhlmvho57/02/2024 12:52 PM EST Pleural effusion COLONOSCOPY (THERAPEUTIC)Ggiyecz3204/28/2024 11:16 AM EST from Last 3 Months [...] any questions regarding this interpretation, please call [phone]. If you are unable to reach us at the number above, please feel free to contact [facility] at [phone]. Narrative 03/30/2025 12:40 PM EDT * * [...] and soft tissues: ??Unremarkable. Procedure Note Provider, [facility] [place] - 03/30/2025 * * *Final Report* * [...] any questions regarding this interpretation, please call [phone]. If you are unable to reach us at the number above, please feel free to contact [facility] at [phone]. Authorizing ProviderResult TypeResult StatusColin Riggs MDRAD-PAMAFinal Result * (ABNORMAL) PLATELET AGGREGATION (03/26/2025 10:42 AM EDT)ComponentValueRef RangeTest MethodAnalysis TimePerformed AtPathologist SignatureADP 5 uM Max Amiefjzzbkb19(L)65 - 93 % Max03/30/2025 7:48 AM EDTCUNIV[facility] LABATP Release by ADP 5 uM0.40.1 - 1.3 nM03/30/2025 7:48 AM EDT [facility] LABADP 20 uM Max Pvejtirycwy8718 - 94 % Max 03/30/2025 7:48 AM [facility] LABATP Release by ADP 20 uM 0.80.1 - 1.4 nM03/30/2025 7:48 AM [facility] Arachidonic Acid Max Lxxvdkbhrhr2881 - 100 % Max03/30/2025 7:48 AM EDT [facility] LABATP Release by Arachidonic Acid0.70.4 - 2.0 nM 03/30/2025 7:48 AM [facility] LABCollagen Max Aggregation 70(L)74 - 99 % Max03/30/2025 7:48 AM [facility] LABATP Release by Collagen0.60.4 - 1.7 nM03/30/2025 7:48 AM [facility] LABEpinephrine 10 uM Max Jvbeuybrrts8058 - 97 % Max03/30/2025 7:48 AM [facility] LABATP Release by Epinephrine 10 uM0.30.2 - 1.6 nM03/30/2025 7:48 AM [facility] LABEpinephrine 100 Max Ehkqwjtzsen3071 - 99 % Max03/30/2025 7:48 AM [facility] LABATP Release by Epinephrine 100 uM0.70.2 - 1.7 nM03/30/2025 7:48 AM [facility] LABTHROMBOXANE A2 3 UM MAX UFQEQNRTZUL8528 - 93 % Max03/30/2025 7:48 AM [facility] LABATP RELEASE BY THROMBOXANE A20.40.2 - 1.4 nM03/30/2025 7:48 AM [facility] LABTHROMBIN 1 UNIT ATP RELEASE1.0>0.510 7:48 AM [facility] LABRisto 1500 u/mL Max Nlniiblgamr3653 - 100 % Max 03/30/2025 7:48 AM [facility] LABRisto 1200 u/mL Max Aufodenuxeh1019 - 100 % Max03/30/2025 7:48 AM [facility] LABRisto 900 u/mL Max Bttgqmxvhjp3467 - 100 % Max03/30/2025 7:48 AM EDT [facility] LABRisto 500u/mL Max Efqzzmfkltx43 - 9 % Max 03/30/2025 7:48 AM [facility] LABSpecimen (Source) Anatomical Location / LateralityCollection Method / VolumeCollection Time Received TimeBloodBLOOD SPECIMEN / UnknownVenipuncture / Abafrdc2303/26/2025 10:42 AM EDT1 10:43 AM EDT Narrative Authorizing ProviderResult TypeResult StatusJose Antonio Eckertkelsey BECERRILLABORATORYFinal ResultPerforming OrganizationAddressCity/State/ZIP CodePhone Number [facility] [place] [address], * EXTRA LAV MAN COAG TUBE (03/26/2025 10:42 AM EDT)Specimen (Source)Anatomical Location / LateralityCollection Method / VolumeCollection TimeReceived Time BloodBLOOD SPECIMEN / UnknownVenipuncture / Rcislna9003/26/2025 10:42 AM EDT 03/26/2025 10:43 AM EDT Narrative Authorizing ProviderResult TypeResult StatusJosuémartellsharona Babarkelsey BECERRILLABORATORYFinal ResultPerforming OrganizationAddressCity/State/ZIP CodePhone Number [facility] [place] [phone], [place] * PLATELET AGGREGATION INTERP (03/26/2025 10:42 AM EDT)ComponentValueRef Range Test MethodAnalysis TimePerformed AtPathologist SignatureInterpretation (Platelet Aggregation)Abnormal - see comment below. A laboratory study of platelet aggregation and stimulated granule release was performed. Based on review of a peripheral blood smear, the platelet estimate is normal and the platelet morphology is normal. PLATELET AGGREGATION: There is slightly decreased aggregation to the following tested agonists, including ADP (5 ??M) and collagen (2 ??g/ml), with normal aggregation to the remaining tested agonists, including ADP (20 ??M), arachidonic acid (0.5 mg/ml), epinephrine (10 ??M), epinephrine (100 ??M),and thromboxane A2 (3 ??M). There is normal stimulated dense granule release to the remaining tested agonists, including ADP (5??M), ADP (20 ??M), arachidonic acid (0.5 mg/ml), collagen (2 ??g/ml), epinephrine (10 ??M), epinephrine (100 ??M), thromboxane A2 (3 ??M), and thrombin (1 U/mL). The ristocetin-induced platelet aggregation shows a normal dose response. SUMMARY: The pattern is not indicative of a specific diagnosis, but Glanzmann thrombasthenia, Jose Soulier Disease and platelet dense granule storage pool disorder are unlikely. The mildly decreased aggregation response to low dose ADP and collagen is of doubtful significance. Please correlate these laboratory results with clinical findings and medication history.03/29/2025 6:39 PM EDCRYSTAL [facility] LABPlt Aggreg Pathologist InterpReviewed by Edmund Lehman MD03/29/2025 6:39 PM [facility] LABSpecimen (Source)Anatomical Location / Laterality Collection Method / VolumeCollection TimeReceived TimeBloodBLOOD SPECIMEN / UnknownVenipuncture / Gbiarrb8603/26/2025 10:42 AM EDT1 10:43 AM EDT Narrative Authorizing ProviderResult TypeResult StatusVjuan francisco Meyers MDLABORATORYFinal ResultPerforming OrganizationAddressCity/State/ZIP CodePhone Number [facility] [address] [place] [address], * (ABNORMAL) BASIC METABOLIC PANEL (03/26/2025 10:42 AM EDT) Only the most recent of2 resultswithin the time period is included. ComponentValueRef RangeTest MethodAnalysis TimePerformed AtPathologist Signature Vcobznh003(H)74 - 99 mg/dL03/26/2025 12:16 PM [facility] Comment: The [place] Diabetes Association (ADA) provides guidance for cutoff [...] Standards of Medical Care in Diabetes 2016, [place] [employer] Association. Diabetes Care. 2016.39(Suppl 1). BUN34(H)9 - 24 mg/dL03/26/2025 12:16 PM [facility] LABORATORYCreatinine 1.59(H)0.73 - 1.22 mg/dL03/26/2025 12:16 PM [facility] WZXAIKGCXEYongsb112 (L)136 - 144 mmol/L1 12:16 PM [facility] LABORATORYPotassium3.8 3.7 - 5.1 mmol/L1 12:16 PM [facility] CLWRYFCMSKMdkletiv78(L)98 - 107 mmol/L1 12:16 PM [facility] KLAETDRHFTNI20706 - 30 mmol/L 03/26/2025 12:16 PM [facility] LABORATORYAnion Foe008 - 15 mmol/L 03/26/2025 12:16 PM [facility] LABORATORYCalcium, Total8.78.5 - 10.2 mg/dL 03/26/2025 12:16 PM [facility] LABORATORYEstimated Glomerular Filtration Rate45(L)>=60 mL/min/1.73m 03/26/2025 12:16 PM [facility] LABORATORYComment:Estimated Glomerular Filtration Rate (eGFR) is calculated using the 2020 CKD-EPI creatinine equation. This equation utilizes serum creatinine, sex, and age as parameters. The creatinine assay has traceable calibration to isotope dilution-mass spectrometry. Refer to KDIGO guidelines for clinical interpretation. In patients with unstable renal function, e.g. those with acute kidney injury, the eGFRmay not accurately reflect actual GFR.Specimen (Source)Anatomical Location / LateralityCollection Method / VolumeCollection TimeReceived TimeBloodBLOOD SPECIMEN / UnknownVenipuncture / Ofgadtr9703/26/2025 10:42 AM EDT1 10:43 AM EDT Narrative Authorizing ProviderResult TypeResult StatusVjuan francisco Meyers MDLABORATORYFinal ResultPerforming OrganizationAddressCity/State/ZIP CodePhone Number [facility] [address] [place] [address], [place] * EGD - THERAPEUTIC, EUS, OR TUBE INTERVENTIONS (03/24/2025 11:48 AM EDT) Anatomical RegionLateralityModalityOtherSpecimen (Source)Anatomical Location / LateralityCollection Method / VolumeCollection TimeReceived Time03/24/2025 11:48 AM EDT Narrative 03/24/2025 12:15 PM EDT A31 Gastrointestinal Endoscopy Patient Name: Bryan Harris Procedure Date: 03/24/2025 11:48 AM Date of : 1950 Admit Type: Outpatient Age: 75 Room: [place] [address] Gender: Male Note Status: Finalized Attending MD: Aure Giraldo MD, [id number] Procedure: ? Upper GI endoscopy Indications: ? Dysphagia Providers: ? Aure Giraldo MD, Ludwig Kirkland MD (Fellow) Patient Profile: ? This is a 75 year old male. Refer to note in ? patient chart for documentation of history and ? physical. Referring Physician: ?? Sue Terrell MD (Referring MD) Medicines: ? Fentanyl 50 micrograms IV, Benzocaine spray, ? Remimazolam Total Dose 7.5 mg IV Complications: ? No immediate complications. Requesting Provider: ?? Procedure: ? Pre-Anesthesia Assessment: ? - Prior to the procedure, a History and Physical ? was performed, and patient medications and ? allergies were reviewed. The patient's tolerance of ? previous anesthesia was also reviewed. The risks ? and benefits of the procedure and the sedation ? options and risks were discussed with the patient. ? All questions were answered, and informed consent ? was obtained. Prior Anticoagulants: The patient has ? taken no anticoagulant or antiplatelet agents. ASA ? Grade Assessment: II - A patient with mild systemic ? disease. After reviewing the risks and benefits, ? the patient was deemed in satisfactory condition to ? undergo the procedure. ? After obtaining informed consent, the endoscope was ? passed under direct vision. Throughout the ? procedure, the patient's blood pressure, pulse, and ? oxygen saturations were monitored continuously. The ? Endoscope was introduced through the mouth, and ? advanced to the second part of duodenum. The upper ? GI endoscopy was accomplished without difficulty. ? The patient tolerated the procedure well. Moderate Sedation: ? The administration of moderate sedation was initiated at 11:55. ? Moderate (conscious) sedation was administered by the nurse and ? supervised by the endoscopist. The patient's oxygen saturation, heart ? rate, blood pressure and response to care were monitored. Findings: ? Esophagogastric landmarks were identified: the Z-line was found at 37 ? cm, the upper extent of the gastric folds was found at 37 cm and the ? site of hiatal narrowing was found at 41 cm from the incisors. Large (> 5 mm) varices were found in the mid esophagus. ? A guidewire was placed and the scope was withdrawn. Dilation was ? performed in the entire esophagus with a Savary dilator with no ? resistance at 18 mm. The dilation site was examined following ? endoscope reinsertion and showed no change. ? Portal hypertensive gastropathy was found in the gastric antrum. ? Endo placed manometry ? The exam was otherwise without abnormality. Impression: ?- Esophagogastric landmarks identified. - Large (> 5 mm) esophageal varices. Non bleeding ? and no concerning stigmata. visualized pre and post ? dilation. Banding not performed as the purpose of ? the endoscopy was to place manometry and would not ? be able to do that after banding. ? - Portal hypertensive gastropathy. Non bleeding ? - The examination was otherwise normal. ? - Dilation performed in the entire esophagus: 18 mm ? - Endo placed manometry ? - No specimens collected. Estimated Blood Loss: ??Estimated blood loss: none. Recommendation: ?- Discharge patient to home. ? - Resume previous diet. ? - Continue present medications. ? - Return to GI and hepatology clinic to discuss ? varices and dysphagia. ? - Patient has a contact number available for ? emergencies. The signs and symptoms of potential ? delayed complications were discussed with the ? patient. Return to normal activities tomorrow. ? Written discharge instructions were provided to the ? patient. Procedure Code(s): ? --- Professional --- ? 23606, Esophagogastroduodenoscopy, flexible, ? transoral; with insertion of guide wire followed by ? passage of dilator(s) through esophagus over guide ? wire Diagnosis Code(s): ? --- Professional --- ? 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 K76.6, Portal hypertension ? K31.89, Other diseases of stomach and duodenum ? R13.10, Dysphagia, unspecified CPT copyright 2020 [employer]. All rights reserved. The codes documented in this report are preliminary and upon entry level paralegal review may be revised to meet current compliance requirements. Attending Participation: ? I was present and participated during the entire procedure, including ? non-mittal portions, and during the administration and monitoring of ? Moderate Sedation. Scope In: 11:56:45 AM Scope Out: 12:05:06 PM MD Aure Yuen MD 03/24/2025 12:12:42 PM This report has been signed electronically by Aure Giraldo MD Number of Addenda: 0 Note Initiated On: 03/24/2025 11:48 AM Authorizing ProviderResult TypeResult StatusMalanupmaa Nasgema MDDIGESTIVE DISEASE Final Result * MANOMETRY ESOPHAGEAL (03/24/2025)Anatomical RegionLateralityModalityOther Specimen (Source)Anatomical Location / LateralityCollection Method / Volume Collection TimeReceived TimeImplant/Device/Foreign Body03/24/2025 Narrative 03/24/2025 Patient: Bryan Harris ?? [id number] Gender: Male Physician: Aure Giraldo MD / Age: 0903/13/1950 Director Compensation: Julien Saleh LPN Height: Referring Physician: Sue Terrell Procedure: Esophageal HRM Examination Date: 03/24/2025 Lower Esophageal Sphincter Region Normal Landmarks ?Proximal LES (from nares)(cm) 40.1 ?LES length(cm) 1.8 2.7-4.8 ?Esophageal length (LES-UES centers)(cm) 21.2 ?Intraabdominal LES length(cm) 0.0 ?Hiatal hernia? Yes LES Pressures ?Pressure margarita. method eSleeve,IRP ?Basal (respiratory mean)(mmHg) 0.9 13-43 Residual (median)(mmHg) 6.5 <15.0 Esophageal Motility Normal Number of swallows evaluated 10 [place] Classification ?% failed 0 ?% weak 0 ?% ineffective 0 ?% panesophageal pressurization 0 ?% premature contraction 10 ?% fragmented 0 ?% intact 100 ?Number of hypercontractile swallows 0 Procedure All swallows in supine position. ?? Indications Dysphagia Interpretation / Findings Supine swallows: The lower esophageal sphincter was normotensive at rest, and lower esophageal sphincter deglutitiverelaxation was normal. 9/10 swallows were intact with a normal contractile pattern, distal contractile integral, and distal latency. 1/10 intact but premature. Clinical correlation is recommended. Impressions 10 swallows performed (not 15) given that it was an endoscopically placed manometry catheter. Overall, this is considered a normal study Aure Giraldo MD Authorizing ProviderResult TypeResult StatusMaliha Naseer MDDIGESTIVE DISEASE Final Result * (ABNORMAL) COMPREHENSIVE METABOLIC PANEL (03/05/2025 11:14 AM EDT) Only the most recent of2 resultswithin the time period is included. ComponentValueRef RangeTest MethodAnalysis TimePerformed AtPathologist Signature Protein, Total6.86.3 - 8.0 g/dL03/05/2025 11:52 AM EDTNORTHCOAST [facility] LABAlbumin4.03.9 - 4.9 g/dL03/05/2025 11:52 AM EDTNORTHCOAST [facility] LABCalcium, Total8.78.5 - 10.2 mg/dL03/05/2025 11:52 AM EDT [facility] LABBilirubin, Total0.60.2 - 1.3 mg/dL 03/05/2025 11:52 AM [facility] LABAlkaline Phosphatase 117(H)38 - 113 U/L03/05/2025 11:52 AM [facility] AST<5(L)14 - 40 U/L03/05/2025 11:52 AM [facility] XWQ5170 - 54 U/L03/05/2025 11:52 AM [facility] Mtmicat298(H)74 - 99 mg/dL03/05/2025 11:52 AM [facility] LABComment: The [employer] (ADA) provides guidance for cutoff [...] Standards of Medical Care in Diabetes 2016, [employer]. Diabetes Care. 2016.39(Suppl 1). JWP843 - 24 mg/dL03/05/2025 11:52 AM [facility] Creatinine1.23(H)0.73 - 1.22 mg/dL03/05/2025 11:52 AM [facility] VCHViunex024(L)136 - 144 mmol/L03/05/2025 11:52 AM [facility] LABPotassium4.93.7 - 5.1 mmol/L03/05/2025 11:52 AM [facility] MJRIewvcgtr5379 - 107 mmol/L03/05/2025 11:52 AM [facility] NUCZS29307 - 30 mmol/L03/05/2025 11:52 AM [facility] LABAnion Xeu972 - 15 mmol/L03/05/2025 11:52 AM EDTNORTBEAUM[facility] LABEstimated Glomerular Filtration Rate62>=60 mL/min/1.73m 03/05/2025 11:52 AM EDTREYNOLDS [facility] LABComment:Estimated Glomerular Filtration Rate (eGFR) is calculated using the 2020 CKD-EPI creatinine equation. This equation utilizes serum creatinine, sex, and age as parameters. The creatinine assay has traceable calibration to isotope dilution- mass spectrometry. Refer to KDIGO guidelines for clinical interpretation. In patients with unstable renal function, e.g. those with acute kidney injury, the eGFRmay not accurately reflect actual GFR.Specimen (Source)Anatomical Location / LateralityCollection Method / VolumeCollection TimeReceived TimeBloodBLOOD SPECIMEN / UnknownVenipuncture / Gqutwbn7803/05/2025 11:14 AM EDT03/05/2025 11:15 AM EDT Narrative Authorizing ProviderResult TypeResult StatusVjuan francisco Meyers MDLABORATORYFinal ResultPerforming OrganizationAddressCity/State/ZIP CodePhone Number [facility] [address] [place] [address] * UA DIP, URINE (POC) (02/25/2025 10:05 AM EDT)ComponentValueRef RangeTest MethodAnalysis TimePerformed AtPathologist SignatureGLUCOSE UA (POCT)Negative Negative mg/dLHolzer HospitalBILIRUBIN UA (POCT)NegativeNegativeHolzer HospitalKETONE UA (POCT)NegativeNegative mg/dLTrumbull Regional Medical CenterPECIFIC GRAVITY UA (POCT)1.0151.005 - 1.030CleKing's Daughters Medical Center OhioHEMOGLOBIN/BLOOD UA (POCT)Negative NegativeHolzer HospitalPH UA (POCT)7.04.5 - 8.0CleKing's Daughters Medical Center OhioPROTEIN UA (POCT)NegativeNegative mg/dLHolzer HospitalUROBILINOGEN UA (POCT)0.2Normal E.U./dLHolzer HospitalNITRITE UA (POCT)NegativeNegativeHolzer Hospital LEUKOCYTES UA (POCT)NegativeNegativeHolzer HospitalCOLOR UA (POCT)Light yellowCleKing's Daughters Medical Center OhioCLARITY UA (POCT)ClearCleMansfield Hospitalpecimen (Source) Anatomical Location / LateralityCollection Method / VolumeCollection Time Received TimeUrine specimen (specimen)URINE SPECIMEN / Syjxenm1002/25/2025 10:05 AM EDT Narrative [facility] - 02/25/2025 10:05 AM EDT Location:[facility], [address] [place] [address], [facility] Authorizing ProviderResult TypeResult StatusJoannie Suarez MDPOC TESTING Final ResultPerforming OrganizationAddressCity/State/ZIP CodePhone Number [facility] [address] * US ABD LIVER VASCULAR (02/19/2025 1:47 PM EDT)Anatomical RegionLaterality ModalityAbdomenUltrasoundSpecimen (Source)Anatomical Location / Laterality Collection Method / VolumeCollection TimeReceived Time02/19/2025 1:47 PM EDT Impressions 02/19/2025 3:17 PM EDT IMPRESSION: Cirrhotic liver morphology. ??No lesion. Patent hepatic vasculature with appropriately directed flow. Small volume abdominal ascites around the liver and in right lower quadrant. Weighter: ALONSO ?? Transcribe Date/Time: Feb ??2024 ??1:53P Dictated by : LISBETH REBOLLAR MD This examination was interpreted and the report reviewed and electronically signed by: LONNIE ANN MD on Feb ??2024 ??3:15PM ??EST Narrative 02/19/2025 3:17 PM EDT * * *Final Report* * * DATE OF EXAM: Feb ??2024 ??1:47PM ?? RITA ?? 1233 ??- ??US ABD LIVER VASCULAR ??/ PROCEDURE REASON: Other ascites ? * * * * Physician Interpretation * * * * EXAMINATION: ??LIVER VASCULAR ULTRASOUND WITH DOPPLER IMAGING CLINICAL HISTORY: [place] liver biopsy 02/02/2025: Hepatic parenchyma with zone 3 patchy sinusoidal dilatation, patchy dilated/angulated portal vein branches, and pericellular fibrosis. TECHNIQUE: ??Sonography of the liver with color and spectral Doppler imaging of the hepatic vasculature was performed. ?? Images were obtained and stored in a permanent archive. MQ: ??USLV_1 COMPARISON: Ultrasound 11/23/2024. RESULT: Sonographic Findings: Pancreas: Normal sonographic appearance. ?? Portions obscured: tail Liver: ? Echotexture: ??Mildly coarsened ? Echogenicity: ??Mildly heterogeneous ? Surface contour: ??Nodular ? Lesions: ??None. Biliary: No intrahepatic biliary duct dilation. ? CBD: 0.3 cm at the hilum. ? Gallbladder: Normal caliber ?-Contents: ??No cholelithiasis ?-Wall: ??Normal ?-Other: ??No pericholecystic fluid. Right Kidney: No hydronephrosis. Spleen: ??Craniocaudal length 11.2 cm, normal. ??There are no splenic lesions. Other: Small volume abdominal ascites around the liver and in right lower quadrant. HEPATIC VASCULATURE: PORTAL SYSTEM: ? -Splenic Vein: Patent with antegrade flow (towards the liver). ? -Main PV: ??Patent with normal, phasic antegrade flow (towards liver). ??26.4 ??cm/sec ? -Right anterior PV: Patent with phasic antegrade flow (towards liver). ? -Right posterior PV: Patent with phasic antegrade flow (towards liver). ? -Left PV: Patent with phasic antegrade flow (towards liver). Splenorenal shunt: No Recannulized paraumbilical vein: No HEPATIC ARTERIES: ?- Main BLACKBURN: ??Normal waveform ?? PSV: ??45 cm/sec. RI: 0.81 ?- Right anterior BLACKBURN: Normal waveform ?- Right posterior BLACKBURN: ??Normal waveform ?- Left BLACKBURN: Normal waveform Hepatic Veins: ? -Left: Patent with triphasic waveform. ? -Middle: Patent with triphasic waveform. ? -Right: Patent with triphasic waveform. IVC: Patent with normal, phasic wave form. Procedure Note Provider, [facility] - 02/19/2025 * * *Final Report* * * DATE OF EXAM: Feb 19 2025 1:47PM RITA 1233 - US ABD LIVER VASCULAR / PROCEDURE REASON: Other ascites * * * * Physician Interpretation * * * * EXAMINATION: LIVER VASCULAR ULTRASOUND WITH DOPPLER IMAGING CLINICAL HISTORY: [place] liver biopsy 02/02/2025: Hepatic parenchyma with zone [...] the liver and in right lower quadrant. Weighter: ALONSO Transcribe Date/Time: Feb 19 2025 1:53P Dictated by : LISBETH REBOLLAR MD This examination was interpreted and the report reviewed and electronically signed by: LONNIE ANN MD on Feb 19 2025 3:15PM EST Authorizing ProviderResult TypeResult StatusAraseli Wall AUTOMATED TELLER MANAGER.CNPUS-PAMAFinal Result * US DOPPLER COMPLETE (02/19/2025 1:47 PM EDT)Anatomical RegionLaterality ModalityUltrasoundSpecimen (Source)Anatomical Location / LateralityCollection Method / VolumeCollection TimeReceived Time02/19/2025 1:47 PM EDT Impressions 02/19/2025 3:17 PM EDT IMPRESSION: Cirrhotic liver morphology. ??No lesion. Patent hepatic vasculature with appropriately directed flow. Small volume abdominal ascites around the liver and in right lower quadrant. Weighter: PSCB ?? Transcribe Date/Time: Feb ??2024 ??1:53P Dictated by : LISBETH REBOLLAR MD This examination was interpreted and the report reviewed and electronically signed by: LONNIE ANN MD on Feb ??2024 ??3:15PM ??EST Narrative 02/19/2025 3:17 PM EDT * * *Final Report* * * DATE OF EXAM: Feb ??2024 ??1:47PM ?? RITA ?? 1033 ??- ??US DOPPLER COMPLETE ??/ PROCEDURE REASON: Other ascites ? * * * * Physician Interpretation * * * * EXAMINATION: ??LIVER VASCULAR ULTRASOUND WITH DOPPLER IMAGING CLINICAL HISTORY: [place] liver biopsy 02/02/2025: Hepatic parenchyma with zone 3 patchy sinusoidal dilatation, patchy dilated/angulated portal vein branches, and pericellular fibrosis. TECHNIQUE: ??Sonography of the liver with color and spectral Doppler imaging of the hepatic vasculature was performed. ?? Images were obtained and stored in a permanent archive. MQ: ??USLV_1 COMPARISON: Ultrasound 11/23/2024. RESULT: Sonographic Findings: Pancreas: Normal sonographic appearance. ?? Portions obscured: tail Liver: ? Echotexture: ??Mildly coarsened ? Echogenicity: ??Mildly heterogeneous ? Surface contour: ??Nodular ? Lesions: ??None. Biliary: No intrahepatic biliary duct dilation. ? CBD: 0.3 cm at the hilum. ? Gallbladder: Normal caliber ?-Contents: ??No cholelithiasis ?-Wall: ??Normal ?-Other: ??No pericholecystic fluid. Right Kidney: No hydronephrosis. Spleen: ??Craniocaudal length 11.2 cm, normal. ??There are no splenic lesions. Other: Small volume abdominal ascites around the liver and in right lower quadrant. HEPATIC VASCULATURE: PORTAL SYSTEM: ? -Splenic Vein: Patent with antegrade flow (towards the liver). ? -Main PV: ??Patent with normal, phasic antegrade flow (towards liver). ??26.4 ??cm/sec ? -Right anterior PV: Patent with phasic antegrade flow (towards liver). ? -Right posterior PV: Patent with phasic antegrade flow (towards liver). ? -Left PV: Patent with phasic antegrade flow (towards liver). Splenorenal shunt: No Recannulized paraumbilical vein: No HEPATIC ARTERIES: ?- Main BLACKBURN: ??Normal waveform ?? PSV: ??45 cm/sec. RI: 0.81 ?- Right anterior BLACKBURN: Normal waveform ?- Right posterior BLACKBURN: ??Normal waveform ?- Left BLACKBURN: Normal waveform Hepatic Veins: ? -Left: Patent with triphasic waveform. ? -Middle: Patent with triphasic waveform. ? -Right: Patent with triphasic waveform. IVC: Patent with normal, phasic wave form. Procedure Note Provider, [facility] - 02/19/2025 * * *Final Report* * * DATE OF EXAM: Feb 19 2025 1:47PM RITA 1033 - US DOPPLER COMPLETE / PROCEDURE REASON: Other ascites * * * * Physician Interpretation * * * * EXAMINATION: LIVER VASCULAR ULTRASOUND WITH DOPPLER IMAGING CLINICAL HISTORY: [place] liver biopsy 02/02/2025: Hepatic parenchyma with zone [...] the liver and in right lower quadrant. Weighter: PSCB Transcribe Date/Time: Feb 19 2025 1:53P Dictated by : LISBETH REBOLLAR MD This examination was interpreted and the report reviewed and electronically signed by: LONNIE ANN MD on Feb 19 2025 3:15PM EST Authorizing ProviderResult TypeResult StatusDonana maria Wall APRN.CNPUS-PAMAFinal Result * IR TRANSJUGULAR LIVER BX W/PRESS (02/02/2025 10:19 AM EDT)Anatomical Region LateralityModalityOtherSpecimen (Source)Anatomical Location / Laterality Collection Method / VolumeCollection TimeReceived Time02/02/2025 10:19 AM EDT Impressions 02/02/2025 2:02 PM EDT IMPRESSION: 1. ??SUCCESSFUL TRANSJUGULAR LIVER BIOPSY DESCRIBED ABOVE. 2. ??NO EVIDENCE OF PORTAL HYPERTENSION. CORRECTED SINUSOIDAL GRADIENT IS CALCULATED TO BE MEAN OF 1 MM HG. Weighter: JYOTIB ?? Transcribe Date/Time: Feb 02 2025 ??1:58P Dictated by : ISAIAH PINTO MD This examination was interpreted and the report reviewed and electronically signed by: ISAIAH PINTO MD on Feb 02 2025 ??2:00PM ??EST Narrative 02/02/2025 2:02 PM EDT * * *Final Report* * * DATE OF EXAM: Feb 02 2025 10:19AM ?? MCA ?? 0808 ??- ??IR TRANSJUG LIVER BX W/PRESS ??/ PROCEDURE REASON: R74.8-Elevated alkaline phosphatase level ? * * * * Physician Interpretation * * * * PROCEDURE: TRANSJUGULAR LIVER BIOPSY AND PRESSURES HISTORY: 74 year old male with elevated liver enzymes. Request for transjugular liver biopsy for further evaluation. CONSENT: ??Risks, benefits, treatment options, potential complications and personnel to be involved were discussed (including the risks of radiation exposure, contrast and anesthesia administration, and any equipment needed for the procedure to ensure best possible outcome) with the patient and all questions were answered and consent was obtained prior to procedure. MEDICATION RECONCILIATION: ??The patient's medications and allergies were reviewed in the electronic medical record and reconciled to the proposed procedure/treatment. RADHA-PROCEDURE DISCUSSION: ??The appropriate elements of the pre-procedure discussion, safety check list and sign-out were performed. TIME OUT: ??A time out was performed immediately prior to procedure start with the nursing, ??and interventional team, correctly identifying the name, date of , procedure, anatomy (including marking of site and side if applicable), patient position, procedure consent form, relevant diagnostic and radiology test results, antibiotic administration if applicable, safety precautions, and procedure-specific equipment needs. Start of procedure (Time out): 0954 End of procedure (Sign out): 1019 Patient position: ??Supine Anesthesia: ??After establishing pulse oximetry, BP and EKG monitoring by the Radiology nurse, moderate sedation with Versed and Fentanyl was administered. Physician Intra-Service time in minutes (first dose of sedation to end of procedure): 53 Local anesthesia: ??2 % lidocaine ANTIBIOTICS: ??None ADDITIONAL MED: ??None ADDITIONAL MED: ??None CONTRAST DOSE: ??6 cc of OMNIPAQUE 240 was injected into the venous system during the procedure. IMAGE GUIDANCE: ??Fluoroscopic and sonographic guidance was used. ?? Ultrasound demonstrated patency of the target vein without filling defects. ??Access was obtained under direct sonographic visualization. ??A sonographic image of the vessel was obtained and placed into the permanent archive for documentation. FLUOROSCOPIC RADIATION SUMMARY: Plane A, Air Kerma: ??25.0 mGy mGy Dose Area Product (DAP): mGycm2 Fluoro Time: ??3:18 min Radiation dose exceed 5 Gy: No If radiation dose exceeded 5 Gy, was counseling and instructional brochure provided:N/A ACCESS: ?? right internal jugular vein ACCESS HEMOSTASIS: ??Manual Compression. TECHNIQUE: ?? The patient was prepped and draped using all elements of maximal sterile barrier technique (cap, mask, sterile gown, sterile gloves, a large sterile sheet, hand hygiene and cutaneous antisepsis), sterile ultrasound gel and sterile ultrasound probe covers. ??...After local anesthesia, access was obtained into the vein using a 21G micropuncture set which was exchanged over a wire for a long #9F sheath. Pressures were measured in the IVC and the right atrium. Using a #5F MPA catheter in conjunction with a 035 angled glide wire, access into the right hepatic vein was obtained. ??Hepatic venogram was performed. ?? Catheter was exchanged for an edgardo balloon over an Amplatz guide wire. Free and wedge pressures were measured in the hepatic vein. The edgardo balloon was removed and a #7F biopsy sheath was placed coaxially through the #9F sheath over a guide wire. ??The biopsy sheath and stiffener were advanced into the hepatic vein. ??Using a #19G biopsy gun, 2 passes and 2 core biopsies were obtained and sent to pathology in formalin. ??The sample was correctly labeled with the patient information. ??The sheaths were removed and hemostasis was obtained [...] formations. The patient tolerated the procedure well. ??There were no significant complications and no other complications during the procedure. CONCLUSION: ??The patient was comfortable and was transferred to the recovery room in stable condition. Estimated Blood Loss: Minimal ATTENDING RADIOLOGIST: ?Isaiah Pinto M.D. NURSERY TEACHER: ??None The procedure was performed by the: attending radiologist, without an activities assistant. The attending radiologist performed the following procedural activities: Entire procedure Authorizing ProviderResult TypeResult StatusDonana maria Wall APRN.CNPINTERVENTIONAL RADIOLOGYFinal Result * SURGICAL PATHOLOGY (02/02/2025 10:11 AM EDT)ComponentValueRef RangeTest Method Analysis TimePerformed AtPathologist SignatureCase ReportSurgical Pathology Report ? Case: [id number] ? Authorizing Provider: ??Isaiah Pinto MD ??Collected: ? 02/02/2025 10:11 AM ? Ordering Location: ? HOSP MAIN [id number] ? Received: ?02/02/2025 03:49 PM ? Pathologist: ? Lucy Ngo MD ? Specimen: ?Liver, Biopsy ? 02/08/2025 2:52 PM [facility] LABFINAL DIAGNOSISA. Liver, [place], biopsy: - Hepatic parenchyma with zone 3 patchy sinusoidal dilatation, patchy dilated/angulated portal veinbranches, and pericellular fibrosis. - See comment. 02/08/2025 2:52 PM [facility] at 1452 EDTDiagnosis CommentThe histologic examination shows 2 cores of liver parenchyma exhibiting adequate number of portal tracts for histologic evaluation. Portal tracts exhibit minimal mixed inflammation composed of predominantly lymphocytes admixed with rare plasma cells and eosinophils. [place] bile ducts are identified along with bile [...] hepatocytes (score 0 of 4+). CK7 highlights [place] bile ducts as well as biliary metaplasia. [...] Dr. Orion Menard, who agrees with the diagnosticinterpretation. 02/08/2025 2:52 PM [facility] LABGross DescriptionA. Liver, Biopsy Received in formalin are two segments of cylindrical tissue aggregating to 1.5 x 0.2 x 0.1 cm, brown and of a soft and friable consistency. Totally submitted in one cassette. [facility] February 02, 2025 8:03 PM Gross examination performed at [facility], [facility] [place], [place] [address]1002/08/2025 2:52 PM [facility] Clinical Historyelevated ALP02/08/2025 2:52 PM EDTFAIRVIEW LABORATORYPerforming LabDiagnostic interpretation performed at: [facility], [address] [place] [address], [facility] [address] [address] CLIA# [id number] Civil Cad Designer: Ramos Strickland MD02/08/2025 2:52 PM [facility] LABDisclaimerLaboratory Developed Test (LDT) Disclaimer: Performance characteristics of immunohistochemical, immunofluorescent, and chromogenic in-situ hybridization tests have been determined by the performing laboratory within [facility] Nick Jonnathan [facility] Pathology and Laboratory Medicine Department ([facility], [facility], [facility], [facility], [facility], [facility], or [facility]) in a manner consistent with CLIA requirements. One or more of these tests may not have been cleared or approved by the FDA. [facility] is regulated under CLIA as qualified to perform high- complexity testing. These tests are used for clinical purposes. These should not be regarded asinvestigational or for research. Positive and negative controls stain appropriately.02/08/2025 2:52 PM [facility] Specimen (Source)Anatomical Location / LateralityCollection Method / Volume Collection TimeReceived TimeTissueLIVER BIOPSY SPECIMEN / Qlsfcpp0302/02/2025 10:11 AM EDT02/02/2025 3:49 PM EDTComment:Pre-op diagnosis: Elevated alkaline phosphatase level [R74.8] Narrative Authorizing ProviderResult TypeResult StatusRam Jaswinder Pinto MDSURGICAL PATHOLOGYFinal ResultPerforming OrganizationAddressCity/State/ZIP CodePhone Number [facility] [address] [facility] [address] [place] [address], [facility] [address] [place] [address], [place] * MAGNESIUM (01/25/2025 11:00 AM EDT)ComponentValueRef RangeTest MethodAnalysis TimePerformed AtPathologist SignatureMagnesium2.21.7 - 2.3 mg/dL01/25/2025 12:17 PM EDTNOW[facility] LABSpecimen (Source)Anatomical Location / LateralityCollection Method / VolumeCollection TimeReceived Time BloodBLOOD SPECIMEN / UnknownVenipuncture / Mnedqzu2901/25/2025 11:00 AM EDT 01/25/2025 11:00 AM EDT Narrative Authorizing ProviderResult TypeResult StatusVyajosé manuel Meyers MDLABORATORYFinal ResultPerforming OrganizationAddressCity/State/ZIP CodePhone Number [facility] [address] [place] [address] * (ABNORMAL) COMPLETE BLOOD COUNT (01/25/2025 11:00 AM EDT)ComponentValueRef RangeTest MethodAnalysis TimePerformed AtPathologist SignatureWBC8.053.70 - 11.00 k/uL01/25/2025 11:05 AM EDTREYNOLDS [facility] LABRBC3.75 (L)4.20 - 6.00 m/uL01/25/2025 11:05 AM EDTNOWAR [facility] WKNOyljeavopf06.2(L)13.0 - 17.0 g/dL01/25/2025 11:05 AM EDTRE[facility] ZPEZfgcluihne00.9(L)39.0 - 51.0 %01/25/2025 11:05 AM EDT [facility] DXGWRM887.1(H)80.0 - 100.0 fL01/25/2025 11:05 AM EDTNOW[facility] CNWKTC13.526.0 - 34.0 pg 01/25/2025 11:05 [facility] HTYVNOD26.230.5 - 36.0 g/dL01/25/2025 11:05 AM [facility] LABRDW-CV 14.711.5 - 15.0 %01/25/2025 11:05 AM [facility] Platelet [id number] - 400 k/uL01/25/2025 11:05 AM [facility] LABMPV9.89.0 - 12.7 fL01/25/2025 11:05 AM [facility] LABAbsolute nRBC<0.01<0.01 k/uL01/25/2025 11:05 AM EDT [facility] LABSpecimen (Source)Anatomical Location / LateralityCollection Method / VolumeCollection TimeReceived TimeBloodBLOOD SPECIMEN / UnknownVenipuncture / Ohggzks8801/25/2025 11:00 AM EDT01/25/2025 11:00 AM EDT Narrative Authorizing ProviderResult TypeResult StatusVjuan francisco Meyers MDLABORATORYFinal ResultPerforming OrganizationAddressCity/State/ZIP CodePhone Number [facility] [address] [place] [address] * HEPATITIS C ANTIBODY IA WITH CONFIRMATION (01/08/2025 12:33 PM EDT)Component ValueRef RangeTest MethodAnalysis TimePerformed AtPathologist SignatureHep C Antibody ACOritpdqwVaiubvrj86/26/2025 11:03 AM EDTCUNIVERSITY H[facility]PITALS TR[facility] LABComment:The result suggests no evidence of infection with Hepatitis C virus. Should recent infection be suspected, repeat testing may be considered 4-6 weeks after this draw.Specimen (Source)Anatomical Location / Laterality Collection Method / VolumeCollection TimeReceived TimeBloodBLOOD SPECIMEN / UnknownVenipuncture / Jxwsxff0401/08/2025 12:33 PM EDT01/08/2025 12:33 PM EDT Narrative Authorizing ProviderResult TypeResult StatusAraseli Wall APRN.CNPLABORATORYFinal ResultPerforming OrganizationAddressCity/State/ZIP CodePhone Number [facility] [address] [facility] [address] [place] [address], * CHOLESTEROL BFL (05/18/2024 12:52 PM EST)ComponentValueRef RangeTest Method Analysis TimePerformed AtPathologist SignatureCholesterol, Body Jsemv19Gut Comment mg/dL05/19/2024 3:06 AM [facility] LABComment: SYNOVIAL FLUIDS: Synovial fluid cholesterol measurement may [...] 45 mg/dL is suggestive of an exudate. ??A serous fluid cholesterol measurement <45 mg/dL is suggestive of a transudate. Reference: 1. CLSI. Analysis of Body Fluids in Clinical Chemistry; Approved Guideline. CLSI document C49-A. RAJEEV Bui: Clinical Laboratory Standards [place]; 2007. Body Fluid Type (Chol)Pleural Cavity, Right05/19/2024 3:06 AM [facility] LABSpecimen (Source)Anatomical Location / Laterality Collection Method / VolumeCollection TimeReceived TimeSterile Fluid/Body Fluid PLEURAL FLUID / UnknownNon Blood / Qjrqtjp8205/18/2024 12:52 PM EST05/18/2024 11:34 PM EST Narrative Authorizing ProviderResult TypeResult StatusUddamiranda Douglas MDLABORATORYFinal ResultPerforming OrganizationAddressCity/State/ZIP CodePhone Number [facility] [address] [place] [address], * COLONOSCOPY (THERAPEUTIC) (04/28/2024 11:16 AM EST)Anatomical RegionLaterality ModalityOtherSpecimen (Source)Anatomical Location / LateralityCollection Method / VolumeCollection TimeReceived Time04/28/2024 11:16 AM EST Narrative 04/28/2024 11:59 AM EST [facility] Gastrointestinal Endoscopy Patient Name: Bryan Harris Procedure Date: 04/28/2024 11:16 AM Date of : 1950 Admit Type: Outpatient Age: 74 Room: [place] [address] Gender: Male Note Status: Finalized Attending MD: Vic Ponce MD, [id number] Procedure: ?Colonoscopy Indications: ?Chronic diarrhea Comorbidities ? Patient with chronic right pleural effusion unknown etiology/origin ? with N,V, diarrhea and weight loss. Providers: ?Vic Ponce MD, Nenita Almonte, EVAN, Abbie ?Uche, RN, Adri Bradley RN (Assisting ?Nurse) Patient Profile: ?This is a 74 year old male. Refer to note in ?patient chart for documentation of history and ?physical. Last Colonoscopy: 5 years ago. Referring Physician: ?Sue Terrell MD (Referring MD) Medicines: ?Monitored Anesthesia Care Complications: ?No immediate complications. Procedure: ?Pre-Anesthesia Assessment: ?- Prior to the procedure, a History and Physical ?was performed, and patient medications and ?allergies were reviewed. The patient is ?competent. The risks and benefits of the ?procedure and the sedation options and risks ?were discussed with the patient. All questions ?were answered and informed consent was obtained. ?Patient identification and proposed procedure ?were verified by the physician, the nurse, the ?anesthesiologist and the grinder machine knife setter in the ?procedure room at 11:29 AM. Mental Status ?Examination: alert and oriented. Airway ?Examination: normal oropharyngeal airway and ?neck mobility. Respiratory Examination: clear to ?auscultation. CV Examination: normal. ?Prophylactic Antibiotics: The patient does not ?require prophylactic antibiotics. Prior ?Anticoagulants: The patient has taken no ?anticoagulant or antiplatelet agents. ASA Grade ?Assessment: III - A patient with severe systemic ?disease. After reviewing the risks and benefits, ?the patient was deemed in satisfactory condition ?to undergo the procedure. The anesthesia plan ?was to use monitored anesthesia care (MAC). ?Immediately prior to administration of ?medications, the patient was re-assessed for ?adequacy to receive sedatives. The heart rate, ?respiratory rate, oxygen saturations, blood ?pressure, adequacy of pulmonary ventilation, and ?response to care were monitored throughout the ?procedure. The physical status of the patient ?was re-assessed after the procedure. ?After I obtained informed consent, the scope was ?passed under direct vision. Throughout the ?procedure, the patient's blood pressure, pulse, ?and oxygen saturations were monitored ?continuously. The Colonoscope was introduced ?through the anus and advanced to the terminal ?ileum, with identification of the appendiceal ?orifice and IC valve. The colonoscopy was ?performed without difficulty. The patient ?tolerated the procedure well. The quality of the ?bowel preparation was good. The terminal ileum, ?ileocecal valve, appendiceal orifice, and rectum ?were photographed. Scope Withdrawal Time: 0 hours 4 minutes 36 seconds Moderate Sedation: ? MAC anesthesia was administered by the anesthesia team. Total Procedure Duration: 0 hours 6 minutes 58 seconds Findings: ? The perianal and digital rectal examinations were normal. Pertinent ? negatives include normal sphincter tone. ? The colon (entire examined portion) appeared normal. Biopsies for ? histology were taken with a cold forceps from the entire colon for ? evaluation of microscopic colitis. ? There is no endoscopic evidence of bleeding, diverticula, erythema, ? inflammation, mass, polyps, stenosis, stricture or ulcerations in the ? entire colon. ? The terminal ileum appeared normal. Biopsies were taken with a cold ? forceps for histology. Impression: ? - The entire examined colon is normal. Biopsied. ?- The examined portion of the ileum was normal. ?Biopsied. Recommendation: ? - Patient has a contact number available for ?emergencies. The signs and symptoms of potential ?delayed complications were discussed with the ?patient. Return to normal activities tomorrow. ?Written discharge instructions were provided to ?the patient. ?- Resume previous diet. ?- Continue present medications. ?- Await pathology results. ?- Repeat colonoscopy in 5 years for surveillance. ?- Return to primary care physician PRN. ?- Discharge patient to home (ambulatory). ?- Resume anticoagulant at prior dose. Procedure Code(s): ?--- Professional --- ?82791, Colonoscopy, flexible; with biopsy, ?single or multiple Diagnosis Code(s): ?--- Professional --- ?K52.9, Noninfective gastroenteritis and colitis, ?unspecified CPT copyright 2020 [employer]. All rights reserved. The codes documented in this report are preliminary and upon entry level paralegal review may be revised to meet current compliance requirements. Attending Participation: ? I personally performed the entire procedure. Scope In: 11:48:20 AM Scope Out: 11:55:18 AM MD Vic Hammond MD 04/28/2024 11:59:12 AM This report has been signed electronically by Vic Ponce MD Number of Addenda: 0 Note Initiated On: 04/28/2024 11:16 AM Estimated Blood Loss: ? Estimated blood loss: none. Authorizing ProviderResult TypeResult StatusMaliha Naseer MDDIGESTIVE DISEASE Final Result from Last 3 Months or Most Recently Relevant to Health [place] [address] Advance Directives TypeDate RecordedPatient RepresentativeExplanationAdvance Directive(s)11/12/2023 2:37 PM * Full Code (Latest Code Status on File) Date ActivatedDate InactivatedComments12/20/2023 10:18 PM12/26/2023 9:02 PMQuestion AnswerCommentsFull Code Order Discussed With:* Patient Care Teams Team MemberRelationshipSpecialtyStart [place] [address] [place] [address] PCP - GeneralFamily Medicine12/29/23 Jere Sales MD [address] [address] ReferringGastroenterology12/05/20 Calin Gotti DO [address] [place] [address] Internal Medicine10/16/23
[2025-04-12 10:10] LABS: Hematocrit 32.2 % (42.0-54.0); Hemoglobin 10.2 g/dL (14.0-18.0); Immature Granulocytes Abs Auto 0.09 10^3/uL (0.00-0.03); Immature Granulocytes Pct Auto 1.2 % (0.0-0.5); Lymphocytes Absolute Auto 0.9 10^3/uL (1.2-3.8); Mean Corpuscular HGB Conc 31.7 g/dL (29.9-35.2); Mean Corpuscular Hemoglobin 30.6 pg (25.9-34.0); Mean Corpuscular Volume 96.7 fL (80.0-94.0); Platelet Count 288 10^3/uL (150-450); Red Blood Count 3.33 10^6/uL (4.70-6.10); White Blood Count 7.5 10^3/uL (4.0-11.0)
[2025-04-12 10:54] LABS: Alanine Aminotransferase 21 U/L (16-63); Albumin Globulin Ratio 0.7; Albumin Level 2.8 g/dL (3.4-5.0); Alkaline Phosphatase 96 U/L (46-116); Anion Gap 13.3; Aspartate Amino Transferase 8 U/L (15-37); Blood Urea Nitrogen 22.0 mg/dL (7.0-18.0); Calcium 8.8 mg/dL (8.5-10.1); Carbon Dioxide 27.2 mmol/L (21.0-32.0); Chloride 105 mmol/L (98-107); Estimated GFR (African America 43 (>=60 mL/min/1.73m^2); Estimated GFR (Non-African Ame 36 (>=60 mL/min/1.73m^2); Globulin 4.1 g/dL; Glucose 96 mg/dL (74-106); Magnesium 1.7 mg/dL (1.8-2.4); Potassium 4.5 mmol/L (3.5-5.1); Sodium 141 mmol/L (136-145); Total Protein 6.9 g/dL (6.4-8.2)
== END 2025-04-12 09:29 | disposition home or self-care (01) ==
LOC: LAB 09:31
PROVIDERS: PCP Internal Medicine; Visit Provider Internal Medicine
DX: E83.42 Hypomagnesemia (principal); D64.9 Anemia, unspecified; N18.9 Chronic kidney disease, unspecified; I12.9 Hypertensive chronic kidney disease with stage 1 through stage 4 chronic kidney disease, or unspecified chronic kidney disease
CPT/HCPCS: 36415; 80053; 83735; 85025

== ENCOUNTER 2025-04-19 15:36 | Outpatient (OUT) | payer MEDICARE, SELFPAY ==
--- OUTSIDE RECORDS SUMMARY | 2024-01-08 04:30 | XMS_ITS ---
Author Organization [facility] in [place] Address [address] [place] [address] Care Team Providers Care English Division Chair Name Role Phone Dawit Lorenz DO Primary Care Provider Calin Espino [phone] REASON FOR VISIT 3MO-PLEURAL EFFUSION Encounters Encounter Location Date Provider Diagnosis Pulmonary Medicine [place] [address] [place] [address] 01/08/2024 Calin Gotti Plan Of Treatment No Information Progress Notes * Bryan HARRIS EDOB:[birth year] (75 yo M)Acc No.[id number]:01/08/2024 UNLOCKED PROGRESS NOTE Follow Up Patient: Reinaldo DUNLAP Bryan Cantu :?Calin Gotti DODOB:1950???Age:73 Y ???Sex:MaleDate:4Phone:[phone]:[address], [id number]:Dawit Lorenz DO Subjective: * Chief Complaints: * 1 . 3MO-PLEURAL EFFUSION. * Medical History: Objective: * Vitals: Assessment: Plan: * Treatment: * * Electronic signature of Calin Gotti DO on 04/19/2025 at 03:46 PM ESTSign off status: PendingVisit Status:?R/S (Rescheduled) * Provider: Shahzad Gotti DO Date: 0 01/08/2024 Generated for Printing/Faxing/eTransmitting on:?04/19/2025 03:46 PM EST
--- OUTSIDE RECORDS SUMMARY | 2025-04-19 15:45 | XMS_ITS | Clinical Summary ---
Author Organization [facility] Address [address] [place] [address] Care Team Providers Care Supplier Development Manager Name Role Phone Dawit Lorenz DO Primary Care Provider [phone] Dawit Lorenz DO Unavailable [phone] Karthik Calloway MD Unavailable Unavail able Allergies Active AllergyReactionsCriticalityNoted DateCommentsOxycodone-AcetaminophenOther (See Comments)2016 Urinary retention Hallucinations TramadolShortness Of AatyumYjhv67/10/2015 Medications MedicationSigDispense QuantityRefillsLast FilledStart DateEnd DateStatus omeprazole [...] mouth every morning .Active vit A-vit C-vit O-enhy-theqzk 7160-950-100 cjkj-nw-irao Tab Take 1 tablet by mouth every [...] g 5Active Active Problems ProblemNoted DateDiagnosed DateUrinary cupiibofi07/11/2017 Assessment & Plan (06/27/2016 12:19 PM EST): [...] for , 07/05/16 @ 130pm at our [facility] office. S/P total knee yrodziydepjd53/09/4610Ewuptzqnadwtcx51/09/2017Primary osteoarthritis of left knee08/02/2015Retention of urine08/25/2014cute blood loss cvvgwx9108/24/20149299Ohbqbaytfbur72/10/2015Osteoarthritis of left knee08/23/2014 Assessment & Plan (08/23/2014 1:29 PM EDT): Postoperative day of surgery left total knee arthroplasty. Enteric coated aspirin--deep venous thrombosis prophylaxis per primary surgical service. Analgesia: Percocet + IV hydromorphone as needed for breakthrough pain. Other and unspecified twhdahtveqostn85/09/2015 Assessment & Plan (08/23/2014 1:30 PM EDT): Hyperlipidemia-controlled on statin--continue postop. Kuzcjjr9108/23/2014 Overview (03/17/2015): Updated per ICD10 Conversion Assessment [...] InformationValueDate RecordedSex Assigned at BirthNot on fileLegal WqaXakj4202/09/2014 1:03 PM EDTGender IdentityNot on file Sexual OrientationNot on file Last Filed Vital Signs Vital SignReadingTime TakenCommentsBlood Mjtcuvgh892/76006/29/2016 7:30 AM EST Axnbw0028 7:30 AM VFJDperdzldxwu04.9 ??C (98.4 ??F)06/29/2016 7:30 AM ESTRespiratory Gcpc493906/29/2016 7:30 AM ESTOxygen Mzkmtgjpid70%06/29/2016 7:30 AM ESTInhaled Oxygen Concentration--Npzvnx94.8 kg (220 lb)02/11/2023 3:16 PM EDT Vshcwt233.9 cm (6')02/11/2023 3:16 PM EDTBody Mass Index29.8402/11/2023 3:16 PM EDT Plan of Treatment Health MaintenanceDue DateLast DoneCommentsCT Wxqtqrkpyhcp1951Colonoscopy 1Colorectal Cancer Screening/Zretzfqanc1950Fecal DNA1950 Fecal occult blood test (FOBT,FIT)1PSA Level1951Medicare Wellness Visit4Depression Screening/Follow-Up (PHQ-2/9)1963Hepatitis C Qtkmbtdvo33/27/1969Flexible upzequjshrwrv43/27/2001Falls Risk Assessment 2016Tetanus/Diphtheria/Pertussis (1 - Tdap), 06/04/2018Zoster Vaccines (2 of 2)COVID-19 Vaccine (4 - season)/, 09/13/2020, 08/22/2020Influenza Vaccine (#1)/, 05/09/2020RSV Vaccines (1 - 1-dose 75+ series) 2026Pneumococcal Vaccine: 50+ XphkgUmeezgtiq24/20/2018, 11/26/2016HIB VaccinesAged OutNo longer eligible based on [...] 1 X 40 [place] [employer] Single - [id number] Implanted:Qty: 2 on 08/23/2014 [facility]: KiknKdtwsa18/31/895150-0855-738-00 / / [id number] Short Cemented Persona - [id number] Implanted:Qty: 1 on 08/23/2014 by Karthik Calloway MD at [facility]09/23/2017911818-7061-256-61 / / [id number] Sz F Tib 5deg Nonpor Lt Persona - [id number] Implanted:Qty: 1 on 08/23/2014 by Karthik Calloway MD at [id number] / / [id number] Sz9 Lt Nrw Ps Cmt Ccr Persona - [id number] Implanted:Qty: 1 on 08/23/2014 by Karthik Calloway MD at [id number] / / [id number] 32mm All Poly Persona - [id number] Implanted:Qty: 1 on 08/23/2014 by Karthik Calloway MD at [id number] / / [id number] Surf Ef 6-9 14mm Lt Ps Vivacit-E Persona - [id number] Implanted:Qty: 1 on 08/23/2014 by Karthik Calloway MD at [facility]09/23/2017729742-9641-086-70 / / [id number] Hv With Gentamicin Cement Implanted:Qty: 2 on 06/25/2016 by [facility]: NrarCYYKFOEKE55/31/28128577-2-482 / / [id number] Sz F Tib 5deg Nonpor Rt Persona - [id number] Implanted:Qty: 1 on 06/25/2016 by [id number] / / [id number] Sz9 Rt Nrw Ps Cmt Ccr Persona - [id number] Implanted:Qty: 1 on 06/25/2016 by [id number] / / [id number] Short Cemented Persona - [id number] Implanted:Qty: 1 on 06/25/2016 by [id number] / / [id number] 32mm All Poly Vivacit-E - [id number] Implanted:Qty: 1 on 06/25/2016 by [facility]: [place] [id number] / / [id number] Surf 14mm 6-9ef Rt Cps Ve Persona - [id number] Implanted:Qty: 1 on 06/25/2016 by [facility]: [facility]331873-0942-696-90 / / [id number]clcyzLjoscx IdentifierShelf Expiration DateModel / Serial / LotHeaded Screw Explanted:Qty: 4 on 08/23/2014 by [facility]ik [facility]: IosxSzrykz30/28/[id number] / / [id number] Female Hex Screw Explanted:Qty: 1 on 08/23/2014 by [facility]arthik [facility]allow[facility]: RrrzOzbyeg83/31/307592-7032-058-22 / / [id number] Screw Explanted:Qty: 1 on 08/23/2014 [facility] YymqDsowdr30/31/[id number] / / Insurance * Guarantor: Bryan Harriscoprosper TypeRelation to PatientDate of BirthPhone Billing AddressPersonal/PbjyejAdfo1950 [phone] (Home) [address] [place] [address] Advance Directives For more information, please contact: [phone] * Full Code (Latest Code Status on File) Date ActivatedDate InactivatedComments06/25/2016 1:54 PM06/29/2016 3:41 PM * Full Code Date ActivatedDate InactivatedComments08/23/2014 6:45 AM08/25/2014 7:58 PM Care Teams Team MemberRelationshipSpecialtyStart DateEnd Date Dawit Lorenz DO [address] [place] [address] PCP - GeneralInternal Medicine06/29/14 Dawit Lorenz DO [address] [place] [address] Internal Medicine06/29/14 Karthik Calloway MD [address] [place] [address] Consulting PhysicianOrthopedic Surgery01/28/17
--- OUTSIDE RECORDS SUMMARY | 2025-04-19 15:45 | XMS_ITS | Encounter Summary ---
Author Organization [facility] Address [address] [place] [address] Care Team Providers Care Laboratory Administrative Director Name Role Phone Jere Sales MD Unavailable [phone] Calin Gotti DO Unavailable [phone] Jose Antonio Meyers MD Primary Care Provider [phone] Dawit Lorenz DO Unavailable [phone] Source Comments In the event this information is protected by the Federal Confidentiality of Alcohol and Drug AbusePatient Records regulations: The Federal rules restrict any use of the information to criminally investigate or prosecute any alcohol or drug abuse patient.[facility] Encounter Details DateTypeDepartmentCare Team (Latest Contact Info)Mphsroyitje37/31/[address] [facility] [place] [address] [place], [place] [address] Provider, Ccf Primary Care Provider Social History Tobacco UseTypesPacks/DayYears UsedDateSmoking Tobacco: NeverSmokeless [...] steady place to sleep or slept in constantiaelter (including now)?No11/21/2023rea Deprivation IndexAnswerDate RecordedNational Score (1-100), lower number is lower ggoz287512/11/2023State Score (1-10), lower number is lower qebh635ata from: https://www.neighborhoodatlas.medicine.[facility].edu/. Last address used for x[address]tygz[address]12/11/2023Sex and Gender InformationValueDate Recorded Sex Assigned at FiqwcObkw34/24/2025 12:44 PM EDTLegal BzuBmdx1412/05/2020 12:24 PM EDTGender LcatkbyyInrd53/24/2025 12:44 PM EDTSexual OrientationNot on file documented as of this encounter Functional Status * Are you deaf or do you have serious difficulty hearing?AnswerDate of GpbrjmmwvgZgmxvlQk30/11/2024 4:30 PM Sheri Guo RN * Are you blind or do you have serious difficulty seeing, even when wearing glasses?AnswerDate of GfxfmlntapZpcteaAe73/11/2024 4:30 PM Sheri Guo RN * Do you have serious difficulty walking or climbing stairs?AnswerDate of JucrrozfrpVccmrsCd89/11/2024 4:30 PM Sheri Guo RN * Do you have difficulty dressing or bathing?AnswerDate of AssessmentAuthorNo 12/26/2023 4:30 PM Sheri Guo RN * Because of a physical, mental, or emotional condition, do you have difficulty doing errands alone such as visiting a doctor's office or shopping?AnswerDate of FcwreuktywXawayzMc26/11/2024 4:30 PM Sheri Guo RN documented as of this encounter Mental Status * Because of a physical, mental, or emotional condition, do you have serious difficulty concentrating, remembering, or making decisions?AnswerEntry Date VkthccBf82/11/2024 4:30 PM Sheri Guo RN documented in this encounter Plan of Treatment DateTypeDepartmentCare Team (Latest Contact Info)Binxrivyaai01/19/2025 10:00 AM ESTAppointment Gastroenterology [address] [address] Cammie Herron MD [address] [place] [address] Esophageal dysphagia [R13.19]05/12/2025 8:25 AM ESTOffice Visit Gastroenterology [address] [address] Luis Valentine MD [address]26 [place] [address] Araseli Wall Enynyvxl33/ 11:45 AM ESTOffice [place] [address] [place] [address] [place] [address] [place] [address] Follow-up05/21/2025 2:00 PM ESTOffice Visit Cardiology [address] [facility] [place] [address] [place] [address] [facility] [place] [address] 6 month follow updocumented as of this encounter Goals GoalPatient Goal TypeAssociated ProblemsRecent ProgressPatient-Stated?Author Blood Pressure < 130/80 Blood Gppojrxb136/82(03/24/2025 12:30 PM EDT)Sung Mosley MD documented as of this encounter Visit Diagnoses Not on filedocumented in this encounter Care Teams Team MemberRelationshipSpecialtyStart [place] [address] [place] [address] PCP - GeneralFamily Medicine12/29/23 Jere Sales MD [address] [address] ReferringGastroenterology12/05/20 Calin Gotti DO [address] [place] [address] Internal Medicine10/16/23 Dawit Lorenz DO [address] [facility] [place] [address] [place] [address] Internal Mzbzeslt03/31/25documented as of this encounter
--- OUTSIDE RECORDS SUMMARY | 2025-04-19 15:46 | XMS_ITS | Clinical Summary ---
Author Organization [facility] Address [address] [place] [address] Care Team Providers Care Blind Aide Name Role Phone Dawit Lorenz Primary Care Provider [phone] Allergies Active AllergyReactionsCriticalityNoted DateCommentsOxycodone-Acetaminophen Qiwxwvq9903/13/2016 Other Reaction(s): Other (See Comments) Urinary retention Hallucinations TramadolShortness of breath,HgextjzQver47/10/2015 Other Reaction(s): Mental Status Change Medications MedicationSigDispense [...] (CLARITIN PO) Take 10 mg by mouthActive amoxicillin-clavulanate (Augmentin) 875-125 MG tablet Take 1 tablet by mouth in the morning and 1 tablet before bedtime.Active cephalexin (Keflex) 500 MG capsule Three times daily5Active doxycycline (Adoxa) 100 MG tablet Take 100 mg by mouth in the morning and 100 mg before bedtime.5Active Active Problems ProblemNoted DateDiagnosed DateEarly dry stage nonexudative age-related macular degeneration of both eyes08/12/2024Dry eyes08/12/2024lepharitis of upper and lower eyelids of both eyes08/12/2024ilateral posterior capsular opacification 08/12/2024halazion of left upper czanun1408/12/2024 Encounters DateTypeDepartmentCare HlayVbfplexhiwe36/29/2025 4:15 PM EDTProcedure Visit [facility] [address] [place] [address] Uzair Lubin DPM Dermatophytosis of nail (Primary Dx); Dystrophic nail; Pain around toenail, right foot; Pain around toenail, left foot04/14/2025amboo flowsheet [facility] [address] [place] [address] Uzair Lubin DPM 04/14/20256026Npwbqe24/09/2025 11:15 AM EDTOffice Visit [facility] [address] [place] [address] Uzair Lubin DPM 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, stage 2 ([facility]) (Primary Dx); Cellulitis of left foot; Pain in toe of left foot; Difficulty fcfttck9003/25/2025amboo flowsheet [facility] [address] [place] [address] Uzair Lubin DPM 03/25/20259442Cqvenw82/08/4429Vvytyz55/01/2025 10:15 AM EDTOffice Visit [facility] [address] [place] [address] Uzair Lubin DPM 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, stage 2 ([facility]) (Primary Dx); Cellulitis of left foot; Pain in toe of left foot; Difficulty lwrtlsi0203/17/2025amboo flowsheet [facility] [address] [place] [address] Uzair Lubin DPM 03/17/20251170Qekdru87/30/7756Apkhcn94/26/2025 9:50 AM EDTAncillary Procedure [facility] [address] [place] [address] 03/12/2025 8:45 AM EDTOffice Visit [facility] [address] [facility] [place] [address] Uzair Lubin DPM 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, stage 2 ([facility]) (Primary Dx); Cellulitis of left foot; Pain in toe of left foot; Difficulty mijmqqe52/26/2025Bamboo flowsheet [facility]ry [address] [place] [address] Uzair Lubin DPM 03/12/20259372Hneemj39/25/2025Travelfrom Last 3 Months Immunizations ImmunizationAdministration DatesNext DueInfluenza, High Dose Seasonal, Preservative Free05/27/2024Influenza, trivalent, sxyeifzork85/23/2020 Pneumococcal Conjugate PCV 13011/26/2016Pneumococcal Polysaccharide PPSV23 02/03/2018RSV, recombinant, protein subunit RSVpreF, adjuvant reconstitu, 120mcg/0.5mL, PF (Arexvy)05/27/2024Td (adult), 5 Lf tetanus toxoid, preservative free, tvbeaqcb58/16/2019,06/04/2018Tdap107/28/2023Zoster, Gsczsklkciy04/16/2019 Family History Medical HistoryRelationNameCommentsMelanomaNeg Hx Social History Tobacco UseTypesPacks/DayYears UsedDateSmoking Tobacco: NeverSmokeless Tobacco: Never Tobacco Cessation:Counseling Given: Not Answered Sex and Gender InformationValueDate RecordedSex Assigned at BirthNot on file Legal AocCxyz8808/29/2022 7:25 PM EDTGender IdentityNot on fileSexual Orientation Not on file Last Filed Vital Signs Vital SignReadingTime TakenCommentsBlood Pressure--Pulse--Temperature-- Respiratory Rate--Oxygen Saturation--Inhaled Oxygen Concentration--Cmifvk68.3 kg (188 lb)04/14/2025 4:36 PM KKNQulium826.9 cm (6')04/14/2025 4:36 PM EDTBody Mass Index25. 4:36 PM EDT Plan of Treatment DateTypeDepartmentCare Team (Latest Contact Info)Lxakjhowkpw87/11/2025 1:45 PM ESTOffice Visit [facility] [address] [place] [address] Uzair Lubin, DPM [address] [place] [address] 08/16/2025 1:30 PM ESTOffice Visit [facility] [address] [place] [address] Arley Hamilton DO [address] [place] [address] 08/31/2025 1:05 PM EDTOffice Visit [facility] [address] [place] [address] Bianca Bynum MD [address] [place] [address] Health MaintenanceDue DateLast DoneCommentsCT Yvapvcrxibvj1951FIT-DNA 1951FIT1951FOBT03/13/19511833Rnokywczworxx1951OVID-19 Vaccine (4 - season)/, 09/13/2020, 08/22/2020Influenza Vaccine (#1)/04/2024, 05/09/20201034Lqpcdxwwrlg83, 04/28/2024, 4Colorectal Cancer Qisqxxkot00/12/2034DTaP/Tdap/Td Vaccines (4 - Td or Tdap), 08/30/2018, 06/04/2018Pneumococcal Vaccine: 65+ Years Oapitkhfs67/20/2018, 11/26/2016HIB VaccinesAged OutNo longer eligible based on patient's age to complete this topicHPV VaccinesAged OutNo longer eligible based on patient's age to complete this topicHepatitis A VaccinesAged OutNo longer eligible based on patient's age to complete this topicHepatitis B VaccinesAged OutNo longer eligible based on patient's age to complete this topicIPV Vaccines Aged OutNo longer eligible based on patient's age to complete this topic Meningococcal B VaccineAged OutNo longer eligible based on patient's age to complete this topicMeningococcal VaccineAged OutNo longer eligible based on patient's age to complete this topicRotavirus VaccinesAged OutNo longer eligible based on patient's age to complete this topic Procedures Procedure NamePriorityDate/TimeAssociated DiagnosisCommentsXR FOOT 3+ VIEWS LEFT Ewecivf1003/12/2025 9:49 AM EDT Pressure injury of toe [...] DateEnd Date Dawit Lorenz DO [address] [facility] [place] [address] PCP - GeneralInternal Medicine03/12/25
--- OUTSIDE RECORDS SUMMARY | 2025-04-19 15:46 | XMS_ITS | Patient Health Record ---
Author Organization [facility] [place] Address [address] [place] [address] Care Team Providers Care Ion Implant Machine Operator Name Role Phone Dawit Lorenz DO Primary Care Provider Tasneem fernandez ShenCalin Unavailable [phone] Allergies Allergen (clinical drug ingredient) Drug/Non Drug Allergy documented on EMR Reaction Allergy Type Onset Date Status tramadol Tramadol Hallucinations Drug Allergy Active Reason For Referral No Information Medications Medication SIG (Take, Route, Frequency, Duration) Notes Start Date End Date Status Calcium 500 MG 1 tablet with meals Orally Twice a day ActiveClaritin 10 MG1 tablet Orally Once a dayActiveAtorvastatin Calcium 10 MG Oral; Duration: 90 DaysActiveZinc 30 MG1 tablet Orally Once a dayActive Budesonide 3 MGTAKE 3 CAPSULES BY MOUTH ONCE DAILY FOR 60 DAYS THEN 2 CAPSULES ONCE DAILY FOR 15 DAYS THEN 1 CAPSULE ONCE DAILY FOR 7 DAYS Oral; Duration: 82 DaysActiveguaiFENesin-Codeine 100-10 MG/5MLTAKE 10 ML BY MOUTH EVERY 6 HOURS NEEDED FOR COUGH FOR 7 DAYS Oral; Duration: 7 DaysActiveMAGnesium-Oxide 400 (240 Mg) MGTAKE 1 TABLET BY MOUTH TWICE DAILY Oral; Duration: 30 DaysActiveFurosemide 40 MGTAKE 1 TABLET BY MOUTH ONCE DAILY AT 2 PM Oral; Duration: 30 DaysActive Allopurinol 300 MGOral; Duration: 90 DaysActivePotassium Chloride Khloe ER 20 MEQ Oral; Duration: 30 DaysActiveAspirin 81 MG1 tablet Orally Once a dayActive Torsemide 100 MGOral; Duration: 90 DaysActiveMulti Complete -as directed Orally ActiveOmeprazole 20 MGOral; Duration: 90 DaysActive Immunizations Vaccine Route Administration Date Status Comme nts Arexvy Unknown 05/27/2024 Administered Flu, Fluad (72529) 65 yrs + High Dose Seasonal (0692-3416)Hwbjfis8705/27/2024 AdministeredFlu, Fluad (41849) 65 yrs + Trivalent (8711-1718)Xlpbllr6405/09/2020 AdministeredPneumococcal (Pneumovax 23)Qkmhckw9902/03/2018AdministeredPneumococcal (Prevnar 13)Nyyvzmy8611/26/20163366VpeluzossickTERQ-YWB-7 (COVID 19 Pfizer 30mcg/0.3mL)Mvawoku3605/10/2021dministeredTdap (Boostrix)Udkovjo0405/27/2024 AdministeredZOSTER (SHINGLES) VACCINE (HZV)Urnilyz5908/30/2018Administered Social History Tobacco Use: Social History Observation Description Date Details (start date - stop date) Never Smoker NA - NA Tobacco Control (Standard) Question Answer Notes Tobacco use: Nonsmoker Problems Problem Type SNOMED Code ICD Code Onset Dates Problem Status W/U Status Risk Notes Problem Erythrocyte sediment ation rate raised (635652658) Elevated erythrocyte sedimentation rate (R70.0) ActiveconfirmedProblemHyperlipidemia (75288545)Hyperlipidemia (E78.5)Active confirmedProblemCoronary artery disease (01629131)CAD (coronary artery disease) (I25.10)ActiveconfirmedProblemPleural effusion (26323567)Pleural effusion (J90) ActiveconfirmedProblemMultiple pulmonary nodules (445890406)Multiple pulmonary nodules (R91.8)ActiveconfirmedProblemCalcified lymph nodes (481099313)Calcified lymph nodes (I89.8)ActiveconfirmedProblemPericardial effusion (273636020) Pericardial effusion (I31.39)Activeconfirmed Vital Signs Heart Rate 83 /min 07/21/2024 Wfychkgmmsi36.0 degrees Ffuqjtfjjs59/04/2025Respiratory Rate18 /min07/21/2024 Blood pressure dtlgaomuv26 mm Hg07/21/20246674Pciuggcv42.8 %07/21/20242539Bsbrqm69 in 07/21/2024lood pressure pzdibtyw166 mm Hg07/21/20242967Anjiiy751.4 lbs07/21/2024MI 26.63 kg/m207/21/2024 Encounters Encounter Location Date Provider Diagnosis Pulmonary Medicine [address] [address] 07/21/2024 Calin Gotti Pleural effusion J90 Assessments [...] referral to [facility] in [place], [place] for a third opinion. At this time, I am not contributing anything additional to his therapy. He will follow-up as needed. 07/21/2024Other Plan Of Treatment No Information Insurance Providers Payer Name Payer Address Payer Phone Subscriber Number Group Number Insured Name Patient Relationship to Insured Coverage Start Date Coverage End Date [employer] MED[employer]ARE [address] [place], [place] [id number] Bryan Harris Self - patient is the insured Medical (General) History Medical History History ICD Code Elevated erythrocyte sedimentation rate R70.0 Pleural effusion J90 Pericardial effusion I31.39 Multiple pulmonary nodules R91.8 Calcified lymph nodes I89.8 CAD (coronary artery disease) I25.10 Surgical History Surgery Date(Month/Year) EGD 10/21/2020 Right TKA 06/25/2016 Left TKA 08/23/2014 Thoracentesis-09/04/2023 & 10/01/2023 Right Thoracoscopy/PleurX Catheter placement-[facility]11/20/2023Hospitalization History Reason Date(Month/Year) Swelling/Edema-[facility] 12/20/2023
--- OUTSIDE RECORDS SUMMARY | 2025-04-19 15:46 | XMS_ITS | Encounter Summary ---
Author Organization [facility] Address [address] [place] [address] Care Team Providers Care Field Artillery Operations Specialist Name Role Phone Jere Sales MD Unavailable [phone] Calin Gotti DO Unavailable [phone] Jose Antonio Meyers MD Primary Care Provider [phone] Dawit Lorenz DO Unavailable [phone] Source Comments In the event this information is protected by the Federal Confidentiality of Alcohol and Drug AbusePatient Records regulations: The Federal rules restrict any use of the information to criminally investigate or prosecute any alcohol or drug abuse patient.[facility] Reason for Visit * ReasonOnset DateCommentsPopulation Health Navigation Uxcykxys64/31/2025BRITTANY Padron Attribution list Encounter Details DateTypeDepartmentCare Team (Latest Contact Info)Povhkeouyof81/31/2025Patient Outreach Navigate [facility] [place] [address] [place] [address] [place] [address] Courtney Benedict Population Health Navigation Outreach ([facility] Attribution list) Social History Tobacco UseTypesPacks/DayYears UsedDateSmoking Tobacco: NeverSmokeless Tobacco: NeverAlcohol UseStandard Drinks/WeekCommentsYes0 (1 standard drink = 0.6 oz pure alcohol)socially, no drink since HC UtilitiesAnswerDate RecordedIn the past 12 months has the [employer], gas, oil, or water [employer] threatened to shut off services in your [...] RecordedNational Score (1-100), lower number is lower yxxn256312/11/2023State Score (1-10), lower number is lower npjk926ata from: https://www.neighborhoodatlas.medicine.[facility].edu/. Last address used for zbjtce[address]qv[address]12/11/2023Sex and Gender InformationValueDate Recorded Sex Assigned at FzlbfDmwp88/24/2025 12:44 PM EDTLegal TpqEpse4112/05/2020 12:24 PM EDTGender DlperfxfWrtq68/24/2025 12:44 PM EDTSexual OrientationNot on file documented as of this encounter Functional Status * Are you deaf or do you have serious difficulty hearing?AnswerDate of WnkmsjexxfXnmjcgNg35/11/2024 4:30 PM Sheri Guo RN * Are you blind or do you have serious difficulty seeing, even when wearing glasses?AnswerDate of CmmkjdfarbXrzstxHj06/11/2024 4:30 PM Sheri Guo RN * Do you have serious difficulty walking or climbing stairs?AnswerDate of BoxwhnniudErjhohFh65/11/2024 4:30 PM Sheri Guo RN * Do you have difficulty dressing or bathing?AnswerDate of AssessmentAuthorNo 12/26/2023 4:30 PM Sheri Guo RN * Because of a physical, mental, or emotional condition, do you have difficulty doing errands alone such as visiting a doctor's office or shopping?AnswerDate of QehuqwdersJiypzvUd57/11/2024 4:30 PM Sheri Guo RN documented as of this encounter Mental Status * Because of a physical, mental, or emotional condition, do you have serious difficulty concentrating, remembering, or making decisions?AnswerEntry Date QuhgvsVr92/11/2024 4:30 PM Sheri Guo RN documented in this encounter Progress Notes * Courtney Benedict - 04/16/2025 2:26 PM EDT POPULATION HEALTH NAVIGATION OUTREACH Action/ Patient's called back. Patient has 2 PCPs--Dr. Meyers and Dr. Dawit Lorenz in [place], [place]. They work together caring for this patient. His also states that she will contact the insurance company to update their records. Reason for Outreach Returned Call/MyChart Patient Contacted: Spoke to patient/parent/or legal guardian Patient identified by name and date of : Yes Returned call/MyChart actions taken: No action required Navigation Signature: Courtney Benedict April 16, 2025 2:30 PM * Courtney Benedict - 04/16/2025 1:55 PM EDT POPULATION HEALTH NAVIGATION OUTREACH Action/FYI Patient???s [employer] insurance has PCP listed as Yehuda Padron. Called patient to verify PCP and advise him to contact insurance to get their records updated. Reason for Outreach QAI Attribution: Care Gaps due: N/A Patient Contacted: Unable or unnecessary to reach patient: Left message MyChart message sent PCP updates: Incorrect Insurance Attribution: Yes Navigation Signature: Courtney Benedict April 16, 2025 1:55 PM documented in this encounter Plan of Treatment DateTypeDepartmentCare Team (Latest Contact Info)Tojaezaapik34/19/2025 10:00 AM ESTAppointment Gastroenterology [address] [address] Cammie Herron MD [address] [place] [id number] Esophageal dysphagia [R13.19]05/12/2025 8:25 AM ESTOffice Visit Gastroenterology [address] [address] Luis Valentine MD [address] [place] [address] Araseli Wall Vdrnronh41/26/2025 11:45 AM ESTOffice [place] [address] [place], [place] [address] [place] [address] [place] [address] Follow-up05/21/2025 2:00 PM ESTOffice Visit Cardiology [address] [place] [address] [place] [address] [place] [address] 6 month follow updocumented as of this encounter Goals GoalPatient Goal TypeAssociated ProblemsRecent ProgressPatient-Stated?Author Blood Pressure < 130/80 Blood Jabfftbl705/82(03/24/2025 12:30 PM EDT)Sung Mosley MD documented as of this encounter Visit Diagnoses Not on filedocumented in this encounter Care Teams Team MemberRelationshipSpecialtyStart [place] [address] [place] [address] PCP - GeneralFamily Medicine12/29/23 Jere Sales MD [address] [address] ReferringGastroenterology12/05/20 Calin Gotti DO [address] [place] [address] Internal Medicine10/16/23 Dawit Lorenz DO [address] [place] [address] Internal Dzgwupyb35/31/25documented as of this encounter
--- OUTSIDE RECORDS SUMMARY | 2025-04-19 15:46 | XMS_ITS | Clinical Summary ---
Author Organization [facility] Address [id number] [address] [place] [address] Care Team Providers Care Fast Food Crew Lead Name Role Phone Unavailable Primary Care Provider Unavailabl e Social History Tobacco UseTypesPacks/DayYears UsedDateSmoking Tobacco: Never AssessedChildcare AnswerDate BivclwkyKworcqbbbDumrhjk25/12/2019EmploymentAnswerDate Recorded MxjfmnkaggQysvoqu45/12/2019Sex and Gender InformationValueDate RecordedSex Assigned at BirthNot on fileLegal BufBbej7401/20/2015 11:57 AM EDTGender Identity Not on fileSexual OrientationNot on file Plan of Treatment Not on file Medical Devices Not on file
--- OUTSIDE RECORDS SUMMARY | 2025-04-19 15:47 | XMS_ITS | Clinical Summary ---
Author Organization [facility] Address [address] [place] [address] Care Team Providers Care Special Delivery Worker Name Role Phone Jere Sales MD Unavailable Calin Gotti DO Unavailable [phone] Jose Antonio Meyers MD Primary Care Provider Dawit Lorenz DO Unavailable Allergies Active AllergyReactionsCriticalityNoted DateCommentsAdhesive Tape-Silicones Vxcbnptyoyp23/19/2025 Pt developed petechiae/blood blister/skin tear from EKG stickers. TramadolMental Status HynlviCpz11/01/2021 Medications MedicationSigDispense QuantityRefillsLast FilledStart DateEnd DateStatus allopurinol (ZYLOPRIM) 300 mg tablet Take 300 mg by mouth once daily.10/21/2020ctive calcium uwd-puq-S0-Zn-marble coper-kian 250 mg-40 mg- 125 unit-3.75mg tab Take [...] tablet by mouth every evening. [address] (PROTONIX) 40 mg tablet Take 1 tablet by mouth once daily.5Active famotidine (PEPCID) 20 mg tablet Take 20 mg by mouth daily at bedtime.5Active torsemide (DEMADEX) 100 mg tablet Indications:Recurrent 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,AnasarcaTake 0.5 tablets by mouth once daily. 90 tablet /5Active amoxicillin-clavulanate potassium (AUGMENTIN) 875-125 mg per tablet Take 1 tablet by mouth every 12 hours.Active Active Problems Patient Care Coordination No te [...] characters) 11/20/2023: SURGERY:R VATS Pleural biopsy, R garden implement mechanic and doxycycline pleurodesis, R Pleurx catheter [...] - Controlled with current regimen of Fent SENIOR DIRECTOR CREATIVE SERVICES, Tylenol 1000 mg q6hrs, oxycodone 5-10 mg [...] stable. ProblemNoted DateDiagnosed DateStage 3a chronic kidney eolwbwv2401/26/2025KI (acute kidney injury)10/15/2024Esophageal akxpyuckx65/10/2025Lymphocytic colitis 05/19/2024Lung bwqzfn9605/19/20243951Zqpatbxcs66/01/2024hronic cough03/17/2024History of rdaahaowrkyi09/10/2024Elevated sedimentation rate12/25/2023Elevated C- reactive protein (CRP)12/25/2023Generalized edema12/20/2023rimary hypertension 12/20/2023leural effusion, not elsewhere jqbvjuyssd50/05/2024ostoperative pain 11/21/2023leural mwyoxkpy46/05/2024Obesity, Class I, BMI 30-34.905 Resolved Problems ProblemNoted DateDiagnosed DateResolved DateRaynaud's phenomenon without fbokoook83/04/2024 Encounters DateTypeDepartmentCare ZoffKqllfklgcwp54/31/2025 Patient Msg [facility] [place] [address] [place] [address] Provider, Ccf Primary Care Jcjyuash34/31/2025[facility] [address] [place] [address] Courtney Benedict Population Health Navigation Outreach (QAI Chaito Attribution list)03/29/2025 12:55 PM EDT - 03/29/2025 11:59 PM EDTHospital Encounter Radiology [address] [place] [address] [place] [address] Pleural effusion, not elsewhere classified [J90] Discharge Disposition: Home03/24/2025 11:30 AM EDTNurse Visit Gastroenterology [address] [phone] 2, Nurse Gi Lab Esophageal uqgogyekw05/08/2025 9:38 AM EDT - 03/24/2025 11:59 PM EDTHospital Encounter Gastroenterology [address] [place] [phone] Aure Giraldo MD Esophageal dysmotility [K22.4] Discharge Disposition: Home03/24/2025Results Follow-Up Gastroenterology [address] [address] Sue Terrell MD 03/18/2025Orders Only Gastroenterology [address] [address] Sue Terrell MD Esophageal dysphagia (Primary Dx)03/17/2025 Patient Msg Gastroenterology [address] [place] [phone] Provider, Ccf EGD Prep Wbpypvbnpuql78/01/2025GI Preprocedure Call Gastroenterology [address] [phone] Evans King RN 03/17/2025 Patient Msg Gastroenterology [address] [address] Aure Giraldo MD upper endoscopy 4:30 PM EDTOffice Visit Gastroenterology [address] [phone] Sue Terrell MD Esophageal dysmotility (Primary Dx); Esophageal bdvbyqidu31/23/2025 1:15 PM [place]ff[place] [address] [place] [address] Jose Antonio Meyers MD Mixed connective tissue disease (HCC) (Primary Dx); Bruising; Primary hypertension; Stage 3a chronic kidney disease (HCC); Peripheral edema; Recurrent 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; Zswxlvjt15/19/1797Vjwzau78/18/2025Telephone Thoracic Clinic [address] [place] [address] Ronaldo Ramos MD, PhD Faxed Discharge Home Care Order03/03/2025Or[place] [address] [facility] [place] [address] Jose Antonio Meyers MD Generalized edema (Primary Dx); Pleural qgdtelbm58/11/2025 10:20 AM EDTOffice Visit Kid[facility] [address] [address] Ar Suarez MD FLOYD (acute kidney injury) (Primary Dx); Screening for genitourinary condition; Elevated serum creatinine; Decreased GFR; Generalized edema; Pleural effusion, not elsewhere simrsrdydn36/11/2025Patient Outreach [facility] [address] [place] [address] Ar Suarez MD 02/20/2025 Get Medical Advice Gastroenterology [address] [address] Araseli Wall, LADLE LINER HELPER.CURT Harris 1:11 PM EDT - 02/19/2025 11:59 PM EDTHospital Encounter Radiology [address] [address] Other ascites [R18.8] Discharge Disposition: Home02/19/2025 Patient [facility] HB[facility] [place] [address] Salud Trinh RPh At your next appointment, choose [facility].02/19/2025 Patient [facility] HB[facility] [place] [address] Salud Trinh RPh At your next appointment, choose [facility].02/17/2025 Get Medical Advice Gastroenterology [address] [address] Araseli Wall, LADLE LINER HELPER.CURT Harris. /07/[address] [facility] Gastroenterology [address] [address] Araseli Wall, LADLE LINER HELPER.SPEAKER MOUNTER Biopsy follow up02/10/2025 Get Medical Advice Gastroenterology [address] [address] Araseli Wall, LETICIA.CURT Harris. 9:30 AM EDT - 02/02/2025 11:20 AM EDTSurgery Angio [address] [place] [address] Isaiah Pinto MD TRANSCATHETER TYOSIP0302/02/2025 7:05 AM EDT - 02/02/2025 11:30 AM EDTHospital Encounter HOSP MAIN FB36 [address] [place] [address] Isaiah Pinto MD Elevated alkaline phosphatase level [R74.8] Discharge Disposition: Home02/02/20259943Ljyxmq16/12/2025 1:00 PM [place]TOff[place] [address] [place] [address] Jose Antonio Meyers MD Metabolic encephalopathy (Primary Dx); Stage 3a chronic kidney disease (HCC); Primary hypertension; Lymphocytic colitis; Generalized edema; Orthostatic hypotension; Cramp and spasm; Urge yghmuigucazf99/12/2025 Patient Msg Angio [address] [place] [address] Provider, Ccf Instructions for procedure [place] [address] [facility] [facility] [address] Jose Antonio Meyers MD from Last 3 Months Immunizations ImmunizationAdministration DatesNext DueCOD- original vaccine, age 12+ yr, monovalent ([facility] [employer] - PURPLE TOP)09/13/2020,08/22/2020,08/15/2020 influenza (HD-IIV3) vaccine, age 65+ yr, high dose, trivalent, PF (FLUZONE HIGH-DOSE)05/27/2024influenza (IIV3) vaccine, trivalent (AFLURIA, FLULAVAL, FLUVIRIN, FLUZONE)05/27/2024influenza (aIIV3) vaccine, age 65+ yr, trivalent, PF (FLUAD)05/09/2020influenza vaccine, unspecified iqbjaugmdbi73/23/2020 pneumococcal conjugate (PCV13) vaccine, 13 valent (PREVNAR [...] steady place to sleep or slept in grantsburgelter (including now)?No11/21/2023rea Deprivation IndexAnswerDate RecordedNational Score (1-100), lower number is lower pcgu201812/11/2023State Score (1-10), lower number is lower veln158ata from: https://www.neighborhoodatlas.medicine.[facility].edu/. Last address used for nomotsjtuhg[address]/11/2023Sex and Gender InformationValueDate Recorded Sex Assigned at TxckyXxpt52/24/2025 12:44 PM EDTLegal ZlqTncw2712/05/2020 12:24 PM EDTGender TydurpwkQjvl84/24/2025 12:44 PM EDTSexual OrientationNot on file Last Filed Vital Signs Vital SignReadingTime TakenCommentsBlood Luvtbalg657/8203/24/2025 12:30 PM EDT Odvui899503/24/2025 12:30 PM RTEVuvznyaqqxv61.8 ??C (96.4 ??F)03/24/2025 10:53 AM EDTRespiratory Xalq6914 12:30 PM EDTOxygen Jfjjzgwwhu06%03/24/2025 12:30 PM EDTInhaled Oxygen Concentration--Yxcluy01.5 kg (195 lb)03/24/2025 10:53 AM BOHAzfsmj500.9 cm (6')03/24/2025 10:53 AM EDTBody Mass Index26.451 10:53 AM EDT Plan of Treatment DateTypeDepartmentCare Team (Latest Contact Info)Zyvnyykymjs53/19/2025 10:00 AM ESTAppointment Gastroenterology [address] [phone] Cammie Herron MD [address] [place] [address] Esophageal dysphagia [R13.19]05/12/2025 8:25 AM ESTOffice Visit Gastroenterology [address] [address] Luis Valentine MD [address] [place] [address] Araseli Wall Kjbikncg44/26/2025 11:45 AM ESTOffice [place] [address] [place] [address] [place] [address] [place] [address] Follow-up05/21/2025 2:00 PM ESTOffice Visit Cardiology [address] [place] [phone] [place] [address] [facility] [address] [place], [place] [phone] 6 month follow upHealth MaintenanceDue DateLast DoneCommentsAnxiety Screening 1969Depression Feabdnytk60/27/1969Hepatitis A Vaccine (1 of 2 - Risk 2- dose series)1970CT Aonvviqiixxp62/27/1996Cologuard (FIT-DNA)1996 Fecal Occult Blood03/13/19967511Nadaxihwwkrhe92/27/1996Hepatitis B Vaccine (1 of 3 - Risk 3-dose series)2011dvance Directive Nkhdxnndpv57/01/2025Medicare Advantage Annual Wellness Visit06/17/2024ovid-19 Vaccine ( season) /, 09/13/2020, 08/22/2020, Additional history existsInfluenza Vaccine (#1)/04/2024, 05/27/2024, 05/09/2020, Additional history kdwimyMjrwhqzwklq13, 04/28/2024olorectal Cancer Screening 04/28/2025Hemoglobin/Rpheddfrve11/11/202608/04/2025, 01/08/2025, 11/12/2024, Additional history existsAnnual PCP Team Chronic Disease Visit03/09/2026 03/09/2025Serum Hgqkqmkttk61, 03/05/2025, 02/11/2025, Additional history existsDiabetes Agzhldmmr29, 03/05/2025, 02/11/2025, Additional history existsLipid Vwcezbvqc78, 4DTaP,Tdap,Td Vaccine (2 - Td or Tdap), 08/30/2018, 06/04/2018Pneumococcal Vaccine: 50+Upfpbahjx69/20/2018, 11/26/2016Shingrix PpnigxrNwnhqouucuot13/16/2019RSV QivnnmpDiybwppms64/11/2024Hepatitis C Screening Miayhljwg23/25/2025, 11/17/2024, 11/17/2024 Goals GoalPatient Goal TypeAssociated ProblemsRecent ProgressPatient-Stated?Author Blood Pressure < 130/80 Blood Tcalwpge919/82(03/24/2025 12:30 PM EDT)Sung Mosley MD Medical Devices ImplantedTypeAreaManufacturerDevice IdentifierShelf Expiration DateModel / Serial / LotCatheterCatheterRight: ChestDescription:Pleur-x catheterJoint - Knee Joint - KneeBilateral: Bone - KneeScrewScrewRight: Bone - Wrist Procedures Procedure NamePriorityDate/TimeAssociated DiagnosisCommentsXR CHEST 2V FRONTAL/ZMIVrttijm18/13/2025 1:09 PM EDT Pleural effusion, not elsewhere classified PLATELET AGGREGATION YINAKZHbccgqh88/10/2025 10:42 AM EDT Bruising EXTRA LAV MAN COAG UFBNNeimiok21/10/2025 10:42 AM EDT Bruising PLATELET XWYYAWABJOYDakdben81/10/2025 10:42 AM EDT Bruising PLATELET AGGREGATION QSHWCOjukvmc53/10/2025 10:42 AM EDT Bruising BASIC METABOLIC KBYXWWmhdggu61/10/2025 10:42 AM EDT Stage 3a chronic kidney disease (HCC) EGD - THERAPEUTIC, EUS, OR TUBE TOHKKPVVCFPFWVgkuydb05/08/2025 11:48 AM EDT Esophageal dysmotility MANOMETRY LYBOMMEEDIJzmqmcc20/08/2025 Esophageal dysphagia PT ED DIGESTIVE VZUPZBG9603/17/2025 COMPREHENSIVE METABOLIC WTOSKImlgusb78/19/2025 11:14 AM EDT Generalized edema Pleural effusion PT ED PATIENT LYFFTCHJUUD20/16/2025 UA DIP, URINE (POC)Dskykms7902/25/2025 10:05 AM EDT Screening for genitourinary condition US DOPPLER NBEIRBEHEbwpypm46/05/2025 1:47 PM EDT Other ascites US ABD LIVER BQJLSDFKYfccjla82/05/2025 1:47 PM EDT Other ascites COMPREHENSIVE METABOLIC ZYBCBXucffzb00/28/2025 11:12 AM EDT Stage 3a chronic kidney disease (HCC) IR TRANSJUGULAR LIVER BX W/SZCYKNpguaev22/19/2025 10:19 AM EDT Elevated alkaline phosphatase level SURGICAL UNPMWAUFHYzbufht30/19/2025 10:11 AM EDT Elevated alkaline phosphatase level TRANSVASCULAR NHGQSO6302/02/2025 8:40 AM EDT Elevated alkaline phosphatase level MAGNESIUM PGRUeqeteg51/11/2025 11:00 AM EDT Hypomagnesemia BASIC METABOLIC MSPYSNqmphwq52/11/2025 11:00 AM EDT Dyslipidemia COMPLETE BLOOD SGALYRtjdufs08/11/2025 11:00 AM EDT Anemia, unspecified type HEPATITIS C ANTIBODY IA WITH YDGDNGONTSVUKhnxusi15/25/2025 12:33 PM EDT Elevated alkaline phosphatase level CHOLESTEROL MVTTlcemui75/02/2024 12:52 PM EST Pleural effusion COLONOSCOPY (THERAPEUTIC)Ntnrnrq7504/28/2024 11:16 AM EST from Last 3 Months [...] any questions regarding this interpretation, please call [phone]. If you are unable to reach us at the number above, please feel free to contact [facility] at [phone]. Narrative 03/30/2025 12:40 PM EDT * * [...] and soft tissues: ??Unremarkable. Procedure Note Provider, [facility] - 03/30/2025 * * *Final Report* [...] any questions regarding this interpretation, please call [phone]. If you are unable to reach us at the number above, please feel free to contact [facility] eRadiology at [phone]. Authorizing ProviderResult TypeResult StatusColin Riggs MDRAD-PAMAFinal Result * (ABNORMAL) PLATELET AGGREGATION (03/26/2025 10:42 AM EDT)ComponentValueRef RangeTest MethodAnalysis TimePerformed AtPathologist SignatureADP 5 uM Max Cixwrsxyint97(L)65 - 93 % Max03/30/2025 7:48 AM [facility]TCM[facility] LABATP Release by ADP 5 uM0.40.1 - 1.3 nM03/30/2025 7:48 AM EDT [facility] LABADP 20 uM Max Kbhjodtrjdi4536 - 94 % Max 03/30/2025 7:48 AM [facility] LABATP Release by ADP 20 uM 0.80.1 - 1.4 nM03/30/2025 7:48 AM [facility] Arachidonic Acid Max Xabgeblrhvy3698 - 100 % Max03/30/2025 7:48 AM EDT [facility] LABATP Release by Arachidonic Acid0.70.4 - 2.0 nM 03/30/2025 7:48 AM [facility] LABCollagen Max Aggregation 70(L)74 - 99 % Max03/30/2025 7:48 AM [facility] LABATP Release by Collagen0.60.4 - 1.7 nM03/30/2025 7:48 AM [facility] LABEpinephrine 10 uM Max Yzyxphzlxwh7332 - 97 % Max03/30/2025 7:48 AM [facility] LABATP Release by Epinephrine 10 uM0.30.2 - 1.6 nM03/30/2025 7:48 AM [facility] LABEpinephrine 100 Max Olrczlppavx5765 - 99 % Max03/30/2025 7:48 AM [facility] LABATP Release by Epinephrine 100 uM0.70.2 - 1.7 nM03/30/2025 7:48 AM [facility] LABTHROMBOXANE A2 3 UM MAX SXNTQMQFCBM2761 - 93 % Max03/30/2025 7:48 AM [facility] LABATP RELEASE BY THROMBOXANE A20.40.2 - 1.4 nM03/30/2025 7:48 AM [facility] LABTHROMBIN 1 UNIT ATP RELEASE1.0>0.510 7:48 AM [facility] LABRisto 1500 u/mL Max Kkdsaxyvlkt4096 - 100 % Max 03/30/2025 7:48 AM [facility] LABRisto 1200 u/mL Max Nrarkbdrqhw4941 - 100 % Max03/30/2025 7:48 AM [facility] LABRisto 900 u/mL Max Ibyvxkmcqcr8484 - 100 % Max03/30/2025 7:48 AM EDT [facility] LABRisto 500u/mL Max Appfvyficny92 - 9 % Max 03/30/2025 7:48 AM EDTCMORROW COUNTY [facility] LABSpecimen (Source) Anatomical Location / LateralityCollection Method / VolumeCollection Time Received TimeBloodBLOOD SPECIMEN / UnknownVenipuncture / Dbvguvk2803/26/2025 10:42 AM EDT1 10:43 AM EDT Narrative Authorizing ProviderResult TypeResult StatusJackfaheemsharona Meyers MDLABORATORYFinal ResultPerforming OrganizationAddressCity/State/ZIP CodePhone Number [facility] [place] [address], * EXTRA LAV MAN COAG TUBE (03/26/2025 10:42 AM EDT)Specimen (Source)Anatomical Location / LateralityCollection Method / VolumeCollection TimeReceived Time BloodBLOOD SPECIMEN / UnknownVenipuncture / Lrexylj1003/26/2025 10:42 AM EDT 03/26/2025 10:43 AM EDT Narrative Authorizing ProviderResult TypeResult StatusJose Antonio Meyers MDLABORATORYFinal ResultPerforming OrganizationAddressCity/State/ZIP CodePhone Number [facility] [place] [address], * PLATELET AGGREGATION INTERP (03/26/2025 10:42 AM [...] clinical findings and medication history.03/29/2025 6:39 PM [facility] LABPlt Aggreg Pathologist InterpReviewed by Edmund Lehman MD03/29/2025 6:39 PM [facility] LABSpecimen (Source)Anatomical Location / Laterality Collection Method / VolumeCollection TimeReceived TimeBloodBLOOD SPECIMEN / UnknownVenipuncture / Uzlejfs5403/26/2025 10:42 AM EDT1 10:43 AM EDT Narrative Authorizing ProviderResult TypeResult StatusVyafaheemlamoi Meyers MDLABORATORYFinal ResultPerforming OrganizationAddressCity/State/ZIP CodePhone Number [facility] [address] * (ABNORMAL) BASIC METABOLIC PANEL (03/26/2025 10:42 AM EDT) Only the most recent of2 resultswithin the time period is included. ComponentValueRef RangeTest MethodAnalysis TimePerformed AtPathologist Signature Epjipmr492(H)74 - 99 mg/dL03/26/2025 12:16 PM [facility] Comment: The [place] [employer] Association (ADA) provides guidance for cutoff [...] Standards of Medical Care in Diabetes 2016, [place] [employer]. Diabetes Care. 2016.39(Suppl 1). BUN34(H)9 - 24 mg/dL03/26/2025 12:16 PM [facility] LABORATORYCreatinine 1.59(H)0.73 - 1.22 mg/dL03/26/2025 12:16 PM [facility] CFMUGNORCJZodvzg340 (L)136 - 144 mmol/L1 12:16 PM [facility] LABORATORYPotassium3.8 3.7 - 5.1 mmol/L1 12:16 PM [facility] OWLTWAIBZMEusnpbjs50(L)98 - 107 mmol/L1 12:16 PM [facility] XLFFDYBMCIYS64837 - 30 mmol/L 03/26/2025 12:16 PM [facility] LABORATORYAnion Szw431 - 15 mmol/L 03/26/2025 12:16 PM [facility] LABORATORYCalcium, Total8.78.5 - 10.2 mg/dL 03/26/2025 12:16 PM [facility] LABORATORYEstimated Glomerular Filtration Rate45(L)>=60 mL/min/1.73m 03/26/2025 12:16 PM [facility] LABORATORYComment:Estimated Glomerular Filtration Rate (eGFR) is calculated [...] VolumeCollection TimeReceived TimeBloodBLOOD SPECIMEN / UnknownVenipuncture / Ckhyvak3203/26/2025 10:42 AM EDT1 10:43 AM EDT Narrative Authorizing ProviderResult TypeResult StatusVyachessharona Meyers MDLABORATORYFinal ResultPerforming OrganizationAddressCity/State/ZIP CodePhone Number [facility] [address] [facility] [place] [address], * EGD - THERAPEUTIC, EUS, OR TUBE INTERVENTIONS (03/24/2025 11:48 AM EDT) Anatomical RegionLateralityModalityOtherSpecimen (Source)Anatomical Location / LateralityCollection Method / VolumeCollection TimeReceived Time03/24/2025 11:48 AM EDT Narrative 03/24/2025 12:15 PM EDT A31 Gastrointestinal Endoscopy Patient Name: Bryan Harris Procedure Date: 03/24/2025 11:48 AM Date of : 1950 Admit Type: Outpatient Age: 75 Room: [place] [address] Gender: Male Note Status: Finalized Attending MD: Aure Giraldo MD, [id number] Procedure: ? Upper GI endoscopy Indications: ? [...] Procedure Code(s): ? --- Professional --- ? [address], Esophagogastroduodenoscopy, flexible, ? transoral; with insertion of guide wire followed by ? passage of dilator(s) through esophagus over guide ? wire Diagnosis Code(s): ? --- Professional --- ? 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 K76.6, Portal hypertension ? K31.89, Other diseases of stomach and duodenum ? R13.10, Dysphagia, unspecified CPT copyright 2020 [employer]. All rights reserved. The codes documented in this report are preliminary and upon hcc coders review may be revised to meet current [...] On: 03/24/2025 11:48 AM Authorizing ProviderResult TypeResult StatusMalihbrianda Terrell MDDIGESTIVE DISEASE Final Result * MANOMETRY ESOPHAGEAL (03/24/2025)Anatomical RegionLateralityModalityOther Specimen (Source)Anatomical Location / LateralityCollection Method / Volume Collection TimeReceived TimeImplant/Device/Foreign Body03/24/2025 Narrative 03/24/2025 Patient: Bryan Harris ?? [id number] Gender: Male Physician: Aure Giraldo MD / Age: 0903/13/1950 Electric Powerline Examiner: Julien Saleh LPN Height: Referring Physician: Sue [...] Motility Normal Number of swallows evaluated 10 Durham Classification ?% failed 0 ?% weak 0 [...] Overall, this is considered a normal study Auer Giraldo MD Authorizing ProviderTan Terrell MDDIGESTIVE DISEASE Final Result * PT ED DIGESTIVE DISEASE (03/17/2025)Specimen (Source)Anatomical Location / LateralityCollection Method / VolumeCollection TimeReceived Time03/17/2025 Narrative KATHY - 04/17/2025 Provider DUSTIN your patient BRYAN HARRIS has not started their Kathy program, time has . Katyh program: UPPER GI ENDOSCOPY (EGD) Authorizing ProviderResult TypeResdori Giraldo MDEMMIFinal Result Performing OrganizationAddressCity/State/ZIP CodePhone Number KATHY * (ABNORMAL) COMPREHENSIVE METABOLIC PANEL (03/05/2025 11:14 AM EDT) Only the most recent of2 resultswithin the time period is included. ComponentValueRef RangeTest MethodAnalysis TimePerformed AtPathologist Signature Protein, Total6.86.3 - 8.0 g/dL03/05/2025 11:52 AM [facility] LABAlbumin4.03.9 - 4.9 g/dL03/05/2025 11:52 AM [facility] LABCalcium, Total8.78.5 - 10.2 mg/dL03/05/2025 11:52 AM T [facility] LABBilirubin, Total0.60.2 - 1.3 mg/dL 03/05/2025 11:52 AM [facility] LABAlkaline Phosphatase 117(H)38 - 113 U/L03/05/2025 11:52 AM [facility] AST<5(L)14 - 40 U/L03/05/2025 11:52 AM [facility] QMP7782 - 54 U/L03/05/2025 11:52 AM [facility] Kxgaczg437(H)74 - 99 mg/dL03/05/2025 11:52 AM [facility] LABComment: The [place] Diabetes Association (ADA) provides guidance for cutoff [...] Standards of Medical Care in Diabetes 2016, [place] [employer]. Diabetes Care. 2016.39(Suppl 1). MKA817 - 24 mg/dL03/05/2025 11:52 AM [facility] Creatinine1.23(H)0.73 - 1.22 mg/dL03/05/2025 11:52 AM [facility] BUXBcdymd552(L)136 - 144 mmol/L03/05/2025 11:52 AM EDTNORTHEN[facility] LABPotassium4.93.7 - 5.1 mmol/L03/05/2025 11:52 AM EDT [facility] XJNAgdamvot9244 - 107 mmol/L03/05/2025 11:52 AM EDTNORTHENRY [facility] LYLLA60123 - 30 mmol/L03/05/2025 11:52 AM EDTNORTMER[facility] JOPLINST [facility] LABAnion Uvk193 - 15 mmol/L03/05/2025 11:52 AM [facility] LABEstimated Glomerular Filtration Rate62>=60 mL/min/1.73m 03/05/2025 11:52 AM EDMARY [facility] LABComment:Estimated Glomerular Filtration Rate (eGFR) is calculated [...] VolumeCollection TimeReceived TimeBloodBLOOD SPECIMEN / UnknownVenipuncture / Cbqzutb3303/05/2025 11:14 AM EDT03/05/2025 11:15 AM EDT Narrative Authorizing ProviderResult TypeResult StatusJose Antonio Meyers MDLABORATORYFinal ResultPerforming OrganizationAddressCity/State/ZIP CodePhone Number [facility] [address] [place] [address] * PT ED PATIENT INFORMATION (03/02/2025)Specimen (Source)Anatomical Location / LateralityCollection Method / VolumeCollection TimeReceived Time03/02/2025 Narrative KATHY - 04/17/2025 Provider LIDIA your patient BRYAN HARRIS has not started their Kathy program, time has . Kathy program: PATIENT SAFETY INSTRUCTIONS FOR HEALTHCARE SETTINGS Authorizing ProviderResult TypeResult StatusSue Terrell MDEMMIFinal Result Performing OrganizationAddressCity/State/ZIP CodePhone Number KATHY * UA DIP, URINE (POC) (02/25/2025 10:05 AM EDT)ComponentValueRef RangeTest MethodAnalysis TimePerformed AtPathologist SignatureGLUCOSE UA (POCT)Negative Negative mg/dLBethesda North HospitalBILIRUBIN UA (POCT)NegativeNegativeBethesda North HospitalKETONE UA (POCT)NegativeNegative mg/dLOhioHealth Grady Memorial HospitalPECIFIC GRAVITY UA (POCT)1.0151.005 - 1.030[facility] HospitalHEMOGLOBIN/BLOOD UA (POCT)Negative NegativeBethesda North HospitalPH UA (POCT)7.04.5 - 8.0CleTrinity Health System West CampusPROTEIN UA (POCT)NegativeNegative mg/dLBethesda North HospitalUROBILINOGEN UA (POCT)0.2Normal E.U./dLBethesda North HospitalNITRITE UA (POCT)NegativeNegativeBethesda North Hospital LEUKOCYTES UA (POCT)NegativeNegativeBethesda North HospitalCOLOR UA (POCT)Light yellowCleTrinity Health System West CampusCLARITY UA (POCT)ClearOhioHealth Grady Memorial Hospitalpecimen (Source) Anatomical Location / LateralityCollection Method / VolumeCollection Time Received TimeUrine specimen (specimen)URINE SPECIMEN / Iybadpi3802/25/2025 10:05 AM EDT Narrative [facility] - 02/25/2025 10:05 AM EDT Location:[facility], [address] [place] [address], [facility] Authorizing ProviderResult TypeResult StatusAr Suarez MDPOC TESTING Final ResultPerforming OrganizationAddressCity/State/ZIP CodePhone Number [facility] [address] * US ABD LIVER VASCULAR (02/19/2025 1:47 PM EDT)Anatomical RegionLaterality ModalityAbdomenUltrasoundSpecimen (Source)Anatomical Location / Laterality Collection Method / VolumeCollection TimeReceived Time02/19/2025 1:47 PM EDT Impressions 02/19/2025 3:17 PM EDT IMPRESSION: Cirrhotic liver morphology. ??No lesion. Patent hepatic vasculature with appropriately directed flow. Small volume abdominal ascites around the liver and in right lower quadrant. Brewmaster: ALONSO ?? Transcribe Date/Time: Feb ??2024 ??1:53P [...] VASCULAR ULTRASOUND WITH DOPPLER IMAGING CLINICAL HISTORY: Rampart liver biopsy 02/02/2025: Hepatic parenchyma with zone [...] normal, phasic wave form. Procedure Note Provider, [facility] - 02/19/2025 * * *Final Report* * * DATE OF EXAM: Feb 19 2025 1:47PM RITA [id number] - US ABD LIVER VASCULAR / PROCEDURE REASON: Other ascites * * * * Physician Interpretation * * * * EXAMINATION: LIVER VASCULAR ULTRASOUND WITH DOPPLER IMAGING CLINICAL HISTORY: Rampart liver biopsy 02/02/2025: Hepatic parenchyma with zone [...] the liver and in right lower quadrant. Brewmaster: ALONSO Transcribe Date/Time: Feb 19 2025 1:53P Dictated by : LISBETH REBOLLAR MD This examination was interpreted and the report reviewed and electronically signed by: LONNIE ANN MD on Feb 19 2025 3:15PM EST Authorizing ProviderResult TypeResult StatusDonna Duke ZAPATAN.CNPUS-PAMAFinal Result * US DOPPLER COMPLETE (02/19/2025 1:47 PM EDT)Anatomical RegionLaterality ModalityUltrasoundSpecimen (Source)Anatomical Location / LateralityCollection Method / VolumeCollection TimeReceived Time02/19/2025 1:47 PM EDT Impressions 02/19/2025 3:17 PM EDT IMPRESSION: Cirrhotic liver morphology. ??No lesion. Patent hepatic vasculature with appropriately directed flow. Small volume abdominal ascites around the liver and in right lower quadrant. Brewmaster: ALONSO ?? Transcribe Date/Time: Feb ??2024 ??1:53P Dictated by : LISBETH REBOLLAR MD This examination was interpreted and the report reviewed and electronically signed by: LONNIE ANN MD on Feb ??3:15PM ??EST Narrative 02/19/2025 3:17 PM EDT * * *Final Report* * * DATE OF EXAM: Sep ??5 2024 ??1:47PM ?? RITA ?? 1033 ??- ??US DOPPLER COMPLETE ??/ PROCEDURE REASON: Other ascites ? * * * * Physician Interpretation * * * * EXAMINATION: ??LIVER VASCULAR ULTRASOUND WITH DOPPLER IMAGING CLINICAL HISTORY: Rampart liver biopsy 02/02/2025: Hepatic parenchyma with zone [...] normal, phasic wave form. Procedure Note Provider, [facility] [place] - 02/19/2025 * * *Final Report* * * DATE OF EXAM: Feb 19 2025 1:47PM RITA 1033 - US DOPPLER COMPLETE / PROCEDURE REASON: Other ascites * * * * Physician Interpretation * * * * EXAMINATION: LIVER VASCULAR ULTRASOUND WITH DOPPLER IMAGING CLINICAL HISTORY: Rampart liver biopsy 02/02/2025: Hepatic parenchyma with zone [...] the liver and in right lower quadrant. Brewmaster: ALONSO Transcribe Date/Time: Feb 19 2025 1:53P Dictated by : LISBETH REBOLLAR MD This examination was interpreted and the report reviewed and electronically signed by: LONNIE ANN MD on Feb 19 2025 3:15PM EST Authorizing ProviderResult TypeResult StatusDonna Duke LADLE LINER HELPER.CNPUS-PAMAFinal Result * IR TRANSJUGULAR LIVER BX W/PRESS (02/02/2025 10:19 AM EDT)Anatomical Region LateralityModalityOtherSpecimen (Source)Anatomical Location / Laterality Collection Method / VolumeCollection TimeReceived Time02/02/2025 10:19 AM EDT Impressions 02/02/2025 2:02 PM EDT IMPRESSION: 1. ??SUCCESSFUL TRANSJUGULAR LIVER BIOPSY DESCRIBED ABOVE. 2. ??NO EVIDENCE OF PORTAL HYPERTENSION. CORRECTED SINUSOIDAL GRADIENT IS CALCULATED TO BE MEAN OF 1 MM HG. Brewmaster: ALONSO ?? Transcribe Date/Time: Feb 02 2025 ??1:58P [...] Loss: Minimal ATTENDING RADIOLOGIST: ?Isaiah Pinto M.D. OPERATION RESEARCH ANALYST: ??None The procedure was performed by the: attending radiologist, without an kitchen assistant. The attending radiologist performed the following procedural activities: Entire procedure Authorizing ProviderResult TypeResult StatusDonana maria Wall APRN.CNPINTERVENTIONAL RADIOLOGYFinal Result * SURGICAL PATHOLOGY (02/02/2025 10:11 AM EDT)ComponentValueRef RangeTest Method Analysis TimePerformed AtPathologist SignatureCase ReportSurgical Pathology Report ? Case: [id number] ? Authorizing Provider: ??Isaiah Pinto MD ??Collected: ? 02/02/2025 10:11 AM ? Ordering Location: ? HOSP MAIN FB36 ? Received: ?02/02/2025 03:49 PM ? Pathologist: ? Lucy Ngo MD ? Specimen: ?Liver, Biopsy ? 02/08/2025 2:52 PM [facility] LABFINAL DIAGNOSISA. Liver, otoe-missouria, biopsy: - Hepatic parenchyma with zone 3 patchy sinusoidal dilatation, patchy dilated/angulated portal veinbranches, and pericellular fibrosis. - See comment. 02/08/2025 2:52 PM [facility] at 1452 EDTDiagnosis CommentThe histologic examination shows 2 cores of liver parenchyma exhibiting adequate number of portal tracts for histologic evaluation. Portal tracts exhibit minimal mixed inflammation composed of predominantly lymphocytes admixed with rare plasma cells and eosinophils. Rampart bile ducts are identifiedalong with bile ductular proliferation. Portal vein branches [...] hepatocytes (score 0 of 4+). CK7 highlights otoe-missouria bile ducts as well as biliary metaplasia. [...] agrees with the diagnosticinterpretation. 02/08/2025 2:52 PM [facility] LABGross DescriptionA. Liver, Biopsy Received in formalin are two segments of cylindrical tissue aggregating to 1.5 x 0.2 x 0.1 cm, brown and of a soft and friable consistency. Totally submitted in one cassette. [facility] February 02, 2025 8:03 PM Gross examination performed at [facility], [address] [place] [address] 631147402/08/2025 2:52 PM [facility] Clinical Historyelevated [facility]02/08/2025 2:52 PM EDTFAIRVIEW LABORATORYPerforming LabDiagnostic interpretation performed at: [facility], [address] [place] [address], [place] [address] CLIA# [id number] Lining Ironer: Ramos Strickland MD02/08/2025 2:52 PM [facility] LABDisclaimerLaboratory Developed Test (LDT) Disclaimer: Performance characteristics of immunohistochemical, immunofluorescent, and chromogenic in-situ hybridization tests have been determined by the performing laboratory within [facility]'s Nick Baltazar Pathology and Laboratory Medicine Department ([facility], [facility], [facility], [facility], [facility], [facility], or [facility]) in a manner consistent with CLIA requirements. One or more of these tests may not have been cleared or approved by the FDA. [facility] is regulated under CLIA as qualified to perform high- complexity testing. These tests are used for clinical purposes. These should not be regarded asinvestigational or for research. Positive and negative controls stain appropriately.02/08/2025 2:52 PM EDTCMORROW COUNTY [facility] Specimen (Source)Anatomical Location / LateralityCollection Method / Volume Collection TimeReceived TimeTissueLIVER BIOPSY SPECIMEN / Pnwwvpl0802/02/2025 10:11 AM EDT02/02/2025 3:49 PM EDTComment:Pre-op diagnosis: Elevated alkaline phosphatase level [R74.8] Narrative Authorizing ProviderResult TypeResult StatusIsaiah LANEURGICAL PATHOLOGYFinal ResultPerforming OrganizationAddressCity/State/ZIP CodePhone Number [facility] [address] [address], [facility] [address] [place] [address], * MAGNESIUM (01/25/2025 11:00 AM EDT)ComponentValueRef RangeTest MethodAnalysis TimePerformed AtPathologist SignatureMagnesium2.21.7 - 2.3 mg/dL01/25/2025 12:17 PM EDTNORTHCOAHELEN DEVOS CHILDR[facility] LABSpecimen (Source)Anatomical Location / LateralityCollection Method / VolumeCollection TimeReceived Time BloodBLOOD SPECIMEN / UnknownVenipuncture / Nuodmee5801/25/2025 11:00 AM EDT 01/25/2025 11:00 AM EDT Narrative Authorizing ProviderResult TypeResult StatusJose Antonio Meyers MDLABORATORYFinal ResultPerforming OrganizationAddressCity/State/ZIP CodePhone Number [facility] [address] [place] [address] * (ABNORMAL) COMPLETE BLOOD COUNT (01/25/2025 11:00 AM EDT)ComponentValueRef RangeTest MethodAnalysis TimePerformed AtPathologist SignatureWBC8.053.70 - 11.00 k/uL08/04/2025 11:05 AM [facility] LABRBC3.75 (L)4.20 - 6.00 /01/25/2025 11:05 AM [facility] NWSRxdiimelpt13.2(L)13.0 - 17.0 g/dL01/25/2025 11:05 AM [facility] HOCMetdzrjjfm00.9(L)39.0 - 51.0 %01/25/2025 11:05 AM EDT [facility] HRUYYS526.1(H)80.0 - 100.0 KS01/25/2025 11:05 AM [facility] EXNJAM15.526.0 - 34.0 pg 01/25/2025 11:05 AM [facility] LEYLGNR40.230.5 - 36.0 g/dL01/25/2025 11:05 AM [facility] LABRDW-CV 14.711.5 - 15.0 %01/25/2025 11:05 AM [facility] LAB Platelet Zpqme728112 - 400 /01/25/2025 11:05 AM [facility] LABMPV9.89.0 - 12.7 KS01/25/2025 11:05 AM [facility] LABAbsolute nRBC<0.01<0.01 k/01/25/2025 11:05 AM EDT [facility] LABSpecimen (Source)Anatomical Location / LateralityCollection Method / VolumeCollection TimeReceived TimeBloodBLOOD SPECIMEN / UnknownVenipuncture / Nixuohw5401/25/2025 11:00 AM EDT01/25/2025 11:00 AM EDT Narrative Authorizing ProviderResult TypeResult StatusVyachessharona Meyers MDLABORATORYFinal ResultPerforming OrganizationAddressCity/State/ZIP CodePhone Number [facility] [address] [place] [address] * HEPATITIS C ANTIBODY IA WITH CONFIRMATION (01/08/2025 12:33 PM EDT)Component ValueRef RangeTest MethodAnalysis TimePerformed AtPathologist SignatureHep C Antibody TTEenfjkhkPvucvblw29/26/2025 11:03 AM EDTCMORROW COUNTY HOSPITAL LABComment:The result suggests no evidence of infection with Hepatitis C virus. Should recent infection be suspected, repeat testing may be considered 4-6 weeks after this draw.Specimen (Source)Anatomical Location / Laterality Collection Method / VolumeCollection TimeReceived TimeBloodBLOOD SPECIMEN / UnknownVenipuncture / Ozebkni3201/08/2025 12:33 PM EDT01/08/2025 12:33 PM EDT Narrative Authorizing ProviderResult TypeResult StatusDonana maria Wall APRN.CNPLABORATORYFinal ResultPerforming OrganizationAddressCity/State/ZIP CodePhone Number [facility] [address] [address], * CHOLESTEROL BFL (05/18/2024 12:52 PM EST)ComponentValueRef RangeTest Method Analysis TimePerformed AtPathologist SignatureCholesterol, Body Ccxir05Dvr Comment mg/dL05/19/2024 3:06 AM [facility] LABComment: SYNOVIAL FLUIDS: Synovial fluid cholesterol [...] document C49-A. RAJEEV Bui: Clinical Laboratory Standards [place]; 2007. Body Fluid Type (Chol)Pleural Cavity, Right05/19/2024 3:06 AM [facility] LABSpecimen (Source)Anatomical Location / Laterality Collection Method / VolumeCollection TimeReceived TimeSterile Fluid/Body Fluid PLEURAL FLUID / UnknownNon Blood / Nivrtdw2605/18/2024 12:52 PM EST05/18/2024 11:34 PM EST Narrative Authorizing ProviderResult TypeResult StatusUddamiranda Douglas MDLABORATORYFinal ResultPerforming OrganizationAddressCity/State/ZIP CodePhone Number [facility] [address] [facility] [place] [address], * COLONOSCOPY (THERAPEUTIC) (04/28/2024 11:16 AM EST)Anatomical RegionLaterality ModalityOtherSpecimen (Source)Anatomical Location / LateralityCollection Method / VolumeCollection TimeReceived Time04/28/2024 11:16 AM EST Narrative 04/28/2024 11:59 AM EST [facility] Gastrointestinal Endoscopy Patient Name: Bryan Harris Procedure Date: 04/28/2024 11:16 AM Date of : 1950 Admit Type: Outpatient Age: 74 Room: [place] [address] Gender: Male Note Status: Finalized Attending MD: Vic Ponce MD, [id number] Procedure: ?Colonoscopy Indications: ?Chronic diarrhea Comorbidities ? Patient with chronic right pleural effusion unknown etiology/origin ? with N,V, diarrhea and weight loss. Providers: ?Vic Ponce MD, Nenita Almonte RN, [place] ?[place], RN, Adri Bradley RN (Assisting ?Nurse) [...] physician, the nurse, the ?anesthesiologist and the dry chain operator in the ?procedure room at 11:29 AM. [...] prior dose. Procedure Code(s): ?--- Professional --- ?02429, Colonoscopy, flexible; with biopsy, ?single or multiple Diagnosis Code(s): ?--- Professional --- ?K52.9, Noninfective gastroenteritis and colitis, ?unspecified CPT copyright 2021 [employer]. All rights reserved. The codes documented in this report are preliminary and upon hcc coders review may be revised to meet current [...] Most Recently Relevant to Health Maintenance Insurance Advance Directives TypeDate RecordedPatient RepresentativeExplanationAdvance Directive(s)11/12/2023 2:37 PM * Full Code (Latest Code Status on File) Date ActivatedDate InactivatedComments12/20/2023 10:18 PM12/26/2023 9:02 PMQuestion AnswerCommentsFull Code Order Discussed With:* Patient Care Teams Team MemberRelationshipSpecialtyStart [place] [address] [address] [place] [address] PCP - GeneralFamily Medicine12/29/23 Jere Sales MD [address] [address] ReferringGastroenterology12/05/20 Calin Gotti DO [address] [place] [address] Internal Medicine10/16/23 Dawit Lorenz DO [address] [place] [address] Internal Yivwrgeh44/31/25
--- OUTSIDE RECORDS SUMMARY | 2025-04-19 16:01 | XMS_ITS | CCD ---
Author Organization [facility] Inform ion Partnership [facility] Care Team Providers Care Childbirth Educator Name Role Phone Loida, Yuli E Unavailable Loida, Yuli E Unavailable Karthik Calloway Unavailable Unavailable Primary Care Provider Unavailabl e Loida, Yuli E Primary Care Provider Loida, Yuli E Unavailable Karthik Calloway Unavailable Ball, Yuli E Primary Care Provider [phone] Ball, Yuli E Unavailable Karthik Calloway Unavailable [...] Care Provider Ball DO, Yuli E Unavailable [phone] Karthik Calloway MD Unavailable Unavail able Yuli [...] Care Unavailable Henrry BECERRIL, Jere Marie Unavailable Unavailable Primary Care Provider UnavailJose Antonio Erickson MD Primary Care Provider PROVIDER, UNKNOWN Referring Unavailable PROVIDER, UNKNOWN Primary Care Unavailable Ball DO, Yuli E Primary Care Provider LOIDA, YULI E Primary Care Unavailable ZABRINA SUAREZ Referring Unavailable BALL, YULI E Primary Care Unavailable XIOMARA LY Referring Unavailable BALL, YULI E Primary Care Unavailable XIOMARA LY Referring Unavailable ISAKOV, JOSE ANTONIO Primary Care Unavailable ISAKOV, JOSE ANTONIO Referring Unavailable BALL, YULI E Primary Care Unavailable XIOMARA LY Referring Unavailable Yuli Mariscal DO Primary Care Provider Yehuda Boggs DO Attending Provider [phone] Bijal Kaur MD Attending Provider Pablito Hoffman MD Attending Provider Joselin Berman CMA Attending Provider Unavaila ble Yuli Mariscal DO Attending Provider Ball DO, Yuli E Primary Care Provider ANNE-MARIE BAJWA Attending Unavailable RAJI BYNUM Attending Unavailable RUSHER, JAMEL Doyle Attending Unavailable RUSHER, JAMEL Doyle Referring Unavailable RUSHER, JAMEL Doyle Attending Unavailable RUSHER, AJMEL Doyle Attending Unavailable RUSHER, JAMEL Doyle Attending Unavailable CLEKATERINA MARTINEZ Attending Unavailable BALL, UYLI E Primary Care Unavailable TRISTON RIGGS Referring Unavailable BALL, YULI E Primary Care Unavailable BALL, YULI E Primary Care Unavailable KATERINA CONTRERAS Attending Unavailable BALL, YULI E Primary Care Unavailable ISAKOV, JOSE ANTONIO Primary Care Unavailable NASEER, SUE Attending Unavailable ISAKOV, JOSE ANTONIO Primary Care Unavailable WES MCCLENDON Admitting Unavailable WES MCCLENDON Attending Unavailable ISAKOV, JOSE ANTONIO Primary Care [...] Unavailable BALL, YULI E Primary Care Unavailable MARLYN HOOPER Attending Unavailable XIOMARA LY Referring Unavailable ISAKOV, JOSE ANTONIO Primary Care Unavailable RJ CHAN Attending Unavailable NASEER, SUE Referring Unavailable ISAKOV, JOSE ANTONIO Primary Care Unavailable ROSEANN ROSARIO Admitting Unavailable ROSEANN ROSARIO Attending Unavailable BALL, YULI E Primary Care Unavailable LARYAKMERLYN S Admitting Unavailable MERLYN ZAVALA S Attending Unavailable BALL, YULI E Primary Care Unavailable NASEER, SUE Attending Unavailable BALL, YULI E Primary Care Unavailable BALL, YULI E Primary Care Unavailable STEFFEN MCCARTY Attending Unavailabl e BALL, YULI E Primary Care Unavailable ISAKOV, JOSE ANTONIO Referring Unavailable ISAKOV, JOSE ANTONIO Primary Care Unavailable SANDIEJOSUÉNA Referring Unavailable ISAKOV, JOSE ANTONIO Primary Care Unavailable ZABRINA SUAREZ Attending Unavailable SANDIE, MARLYN Referring Unavailable ISAKOV, JOSE ANTONIO Primary Care Unavailable BALL, YULI E Primary Care Unavailable XIOMARA LY Attending Unavailable ISAIAH MURRY Admitting Unavailabl e YUNGRAJALA, ISAIAH IBARRA Attending Unavailabl e ISAKOV, JOSE ANTONIO Primary Care Unavailable RIGGS TRISTON Referring Unavailable ISAKOV, JOSE ANTONIO Primary Care Unavailable ZAC MENDIOLA Referring Unavailable ISAKOV, JOSE ANTONIO Primary Care Unavailable RIGGS, TRISTON Admitting Unavailable RIGGS, TRISTON Attending Unavailable BALL, YULI E Primary Care Unavailable BALL, YULI E Primary Care Unavailable REMEDIOS WELLS Attending Unavailable RIGGS, TRISTON Admitting Unavailable RIGGS, TRISTON Attending Unavailable BALL, YULI E Primary Care Unavailable JAMES ENAMORADO Admitting Unavailable JAMES ENAMORADO Attending Unavailable BALL, YULI E Primary Care Unavailable RIGGS, TRISTON Admitting Unavailable RIGGS, TRISTON Attending Unavailable ISAKOV, JOSE ANTONIO Primary Care Unavailable XIOMARA LY Referring Unavailable [...] Unavailable ISAKOV, JOSE ANTONIO Primary Care Unavailable WILLOW RIGGSN Attending Unavailable ISAKOV, JOSE ANTONIO Primary Care Unavailable RIGGS, TRISTON Referring Unavailable BALL, YULI E Primary Care Unavailable DELLA BARRAGAN Attending Unavailable BALL, YULI E Primary Care Unavailable NASEER, SUE Attending Unavailable BALL, YULI E Primary Care Unavailable ISAKOV, JOSE ANTONIO Referring Unavailable BALL, YULI E Primary Care Unavailable BALL, YULI E Primary Care Unavailable RIGGS, TRISTON Attending Unavailable MENDIOLA, ZAC Referring Unavailable ISAKOV, JOSE ANTONIO Primary Care Unavailable MENDIOLA, ZAC Referring Unavailable ISAKOV, JOSE ANTONIO Primary Care Unavailable MENDIOLA, ZAC Referring Unavailable ISAKOV, JOSE ANTONIO Primary Care Unavailable ISAKOV, JOSE ANTONIO Primary Care Unavailable MALACHI, XIOMARA Referring Unavailable BALL, YULI E Primary Care Unavailable ZABRINA SUAREZ Attending Unavailable MALACHI, XIOMARA Referring Unavailable BALL, YULI E Primary Care Unavailable RIGGS, TRISTON Referring Unavailable ISAKOV, JOSE ANTONIO Primary Care Unavailable RIGGS, TRISTON Referring Unavailable ISAKOV, JOSE ANTONIO Primary Care Unavailable ISAKOV, JOSE ANTONIO Referring Unavailable ISAKOV, JOSE ANTONIO Primary Care Unavailable NASEER, SUE Referring Unavailable BALL, YULI E Primary Care Unavailable NASEER, SUE Referring Unavailable BALL, YULI E Primary Care Unavailable WILLOW RIGGSN Attending Unavailable RIGGS, TRISTON Referring Unavailable ISAKOV, JOSE ANTONIO Primary Care Unavailable ISAKOV, JOSE ANTONIO Referring Unavailable ISAKOV, JOSE ANTONIO Primary Care Unavailable Allergies Allergy ClassificationReported Allergen(s)Allergy TypeDate of OnsetReaction(s) FacilityOpioid Agonists (1 source)traMADolDrug Twbazqn20-31-8005Sztwpx Status ChangeOhio[facility] (20 sources)acetaminophen / oxyCODONE; Translations: [OXYCODONE-ACETAMINOPHEN] Propensity to adverse reactions to qoxo27-12-2783Ojfvb (See Comments), Unknown [facility] Work Phone: (20 sources)traMADol; Translations: [TRAMADOL]Propensity to adverse reactions to stcv58-31-6398Hmmugcnkj Of Breath, Mental Status Change, UnknownW[facility] Work Phone: (1 source)traMADolDrug Ghxtrvj03-01-8770Zzn [facility] Repository (1 source)traMADolDrug Narzmmp17-48-6423ZbxvfzqdiPremier Health [facility] (7 sources)Adhesive Tape-Silicones; Translations: [ADHESIVE TAPE-SILICONES]Drug Nwwblrjnmma56-87-2863HsifuoekbizAliyggvox Clinic Medications Current Medications MedicationDrug Class(es)DatesSig (Normalized)Sig (Original)AeroChamber Mini Chamber - (1 source)Start: 01-21-8350NwubTxifmqq Mini Chamber - Use w/ MDI inhaled every 6 hours as needed for 30 days Jul, [id number] 60 actuat albuterol 0.09 mg/actuat metered dose inhaler (1 source)beta2-Adrenergic AgonistStart: 78-10-9857Uololkrxl Sulfate HFA 108 (90 Base) MCG/ACT 2 puffs Inhalation every 6 hours as needed for cough. Minimum bid for 30 days Jul, Activeallopurinol 300 mg oral tablet (20 sources)Xanthine Oxidase InhibitorStart: 01-24-2024 End: 90-01-8825zqcq 1 tablet by mouth once dailyAllopurinol 300 mg tablet Active 300 MG PO Daily 90 90 December 31, 2024 8:35am Complies with drug therapyStart: 12-30-2023 End: 21-33-1729Vqjowvpskaj 300 mg tablet Discontinued 0 .ROUTE .COMPLEX 90 December 30, 2023 12:30pm January 24, 2024 1:49pm TAKE 1 TABLET DAILYStart: 12-30-2023 End: 15-62-6919Phsvhcxwjux 300 mg tablet Discontinued 0 .ROUTE .COMPLEX 90 December 30, 2023 12:30pm January 24, 2024 1:49pm TAKE 1 TABLET DAILYStart: 10-21-2020 End: 86-47-6036iuuk 1 tablet by mouth once dailyAllopurinol 300 mg tablet Discontinued 300 MG PO Daily October 21, 2020 12:00am December 30, 2023 12:30pm ASCORBATE CALCIUM (VITAMIN C ORAL) (17 sources)take 1 [...] sources)Platelet Aggregation Inhibitor, Nonsteroidal Anti-inflammatory Drug End: 11-36-6328ijrk 1 tablet by mouth at bedtimeaspirin 81 MG EC tablet Take 81 mg by mouth at bedtime. 03/12/2025 Discontinued (Discontinued by another clinician)atorvastatin 10 mg oral tablet (20 sources)HMG-CoA Reductase InhibitorStart: 08-05-2023 End: 66-85-9311Hlvjibncjcte 10 mg tablet Active 0 .ROUTE .COMPLEX 90 3 August 02, 2024 4:42pm On Hold: None TAKE 1 TABLET DAILY IN THE EVENING Complies with drug therapyStart: 10-21-2020 End: 93-78-8469odah 1 tablet by mouth once dailyAtorvastatin 10 mg tablet Discontinued 10 MG PO Daily October 21, 2020 12:00am August 05, 2023 8:58pm benzonatate 100 mg oral capsule (10 sources)Non-narcotic AntitussiveStart: 51-23-3591szde 1 capsule by mouth three times dailyBenzonatate 100 mg capsule Active 100 MG PO Three times daily August 13, 2023 1:00am Complies with drug therapyStart: 97-68-4305gwky 1 capsule by mouth every eight hoursBenzonatate [...] morning . ActiveCalcium (20 sources)Phosphate Binder, Calciumcalcium omd-fzq-Q8-Zn-epic kaleidoscope analyst-kian 250 mg-40 mg- 125 unit-3.75mg tab Take by mouth. ActiveCALCIUM MAGNESIUM ZINC PO (10 sources)CALCIUM MAGNESIUM ZINC PO Take by mouth Activecalcium polycarbophil 625 mg oral tablet (18 sources)take 1 tablet by mouth once daily in the morningpolycarbophil (FIBERCON) 625 mg tablet Take 1 (one) tablet (625 mg total) by mouth every morning . Activecephalexin 500 mg oral capsule (20 sources)Cephalosporin AntibacterialStart: 10-30-2024 End: 86-80-2011swgbefiddk (Keflex) 500 MG capsule Three times daily 04/01/2025 ActiveStart: 53-91-7623zrln 1 capsule by mouth every eight hoursCephalexin 500 MG 1 capsule Orally tid for 5 days Dec, Not-Taking/PRNStart: 07-11-2022 take 1 capsule by mouth twice daily as neededCephalexin 500 MG 1 capsule Orally twice daily for 7 days Jun, Not-Taking/PRNciprofloxacin 3 mg/ml ophthalmic solution (9 sources)Quinolone AntimicrobialStart: 40-15-3642ozbb 1 drop(s) into the eye(s) four times dailyciprofloxacin HCl (CILOXAN) 0.3 % ophthalmic solution INSTILL 1 DROP INTO AFFECTED EYE 4 TIMES DAILY 10/04/2022 Activecodeine phosphate 2 mg/ml / guaiFENesin 20 mg/ml oral solution (8 sources)Opioid AgonistStart: 48-25-0759zbyy 1 mL by mouth every six hours as needed for coughCodeine-Guaifenesin 10-100 mg/5 mL liquid Active 10 ML PO Every 6 hours as needed for cough August 13, 2023 1:00am Complies with drug therapyStart: 66-10-3589wcsw 10 mL by mouth every six hours as needed for cough guaiFENesin-Codeine 100-10 MG/5ML 10 mL as needed Orally every 6 hours as needed for cough for 7 days Jun, Activedexamethasone 1 mg/ml / tobramycin 3 mg/ml ophthalmic suspension (1 source)Aminoglycoside Antibacterial, CorticosteroidStart: 08-12-2024 End: 31-56-6299yacjythxre-dexAMETHasone (Tobradex) ophthalmic suspension Indications: Chalazion of left upper eyelid Administer 1 drop into the left eye in the morning and 1 drop at noon and 1 drop in the evening and 1 drop before bedtime. Do all this for 14 days. 5 mL 1 08/12/2024 08/26/2024 Active Dextromethorphan / guaiFENesin (10 sources)Uncompetitive Z-goagbb-H-aspartate Receptor Antagonist, Sigma-1 AgonistDextromethorphan-guaiFENesin (MUCINEX DM PO) Take by mouth Active diclofenac sodium 0.01 mg/mg topical gel (20 sources)Nonsteroidal Anti-inflammatory DrugStart: 18-03-7726kaudekgtby sodium 1% (Voltaren Arthritis Pain) 1 % Gel Apply 2 (two) g topically 4 (four) times a day as needed for pain Apply 2 grams to affected area up to 4 times a day as needed for pain. . 300 g2 07/13/2024 ActiveStart: 07-09-2024 End: 77-71-0726uwibaeniot sodium 1% (Voltaren) 1 % Gel Apply 2 (two) g topically 4 (four) times a day Apply 2 grams to affected area up to 4 times a day as needed PRN pain. . 900 g 2 07/09/2024 07/10/2024 Discontinued (Error)Start: 01-22-2024 End: 08-98-6102nlskgkvwvr (VOLTAREN) 1 % topical gel 01/22/2024 02/26/2025 DiscontinuedStart: 05-13-2023 End: 83-70-2676reijbvhlct sodium (Voltaren) 1 % Gel Apply 2 (two) g topically 4 (four) times a day Apply 2 grams to affected area up to 4 times a day as needed PRN pain. . 900 g 2 05/13/2023 07/08/2024 Discontinued(Reorder (Suppress CancelRx Message to Pharmacy))Start: 08-30-2022 End: 15-73-6208qnavponnqy sodium (Voltaren) 1 % Gel Apply 2 (two) g topically 4 (four) times a day Apply 2 grams to affected area up to 4 times a day as needed PRN pain. . 300 g 2 08/31/2022 Activedoxycycline monohydrate 100 mg oral tablet (12 sources)Tetracycline-class DrugStart: 72-40-0841zdmz 1 tablet by mouth in the morningdoxycycline (Adoxa) 100 MG tablet Take 100 mg by mouth in the morning and 100 mg before bedtime. 04/08/2025 ActiveStart: 11-77-9584forp 1 capsule by mouth every twelve hoursDoxycycline Hyclate 100 MG 1 capsule Orally Twice a day for 7 days Jun, Not-Taking/PRNenteric contrast (will be provided with radiology test) (3 sources)Start: 10-21-2024 End: 33-70-6488tcxxkvk contrast (will be provided with radiology test) Indications: Other ascites , Generalized abdominal pain For CT ENTEROGRAPHY W IVCON order Administer, As Directed One Time Only, via Oral, Rectal, both Oral and Rectal, Enteric Tube, Stoma or Indwelling Catheter, Enteric Contrast as designatedper enteric contrast guidelines. 1 each 10/21/2024 10/22/2024 Active Start: 04-20-2024 End: 73-89-1226vmgrqxy contrast (will be provided with radiology test) Indications: Diarrhea, unspecified type ForCT ENTEROGRAPHY W IVCON order Administer, As Directed One Time Only, via Oral, Rectal, both Oral and Rectal, Enteric Tube, Stoma or Indwelling Catheter, Enteric Contrast as designated per enteric contrast guidelines. 1 Each 04/20/2024 04/21/2024 Expirederythromycin 0.005 mg/mg ophthalmic ointment (4 sources)Macrolide, Macrolide AntimicrobialStart: 07-21-2024 End: 39-18-4978ktysnfpdecan (ROMYCIN) 5 mg/gram (0.5 %) ophthalmic ointment Use 1 application in both eyes two times a day for 10 days. into affected eye(s). 3.5 g 07/21/2024 07/31/2024 Activefluorouracil 50 mg/ml topical cream (15 sources)Nucleoside Metabolic InhibitorStart: 12-76-2425xejshmhcozhR (EFUDEX) 5 % cream 07/12/2020 ActiveGUAIFENESIN/DEXTROMETHORPHAN (MUCINEX DM ORAL) (17 sources)GUAIFENESIN/DEXTROMETHORPHAN (MUCINEX DM ORAL) Take by mouth. 0 ActiveGUAIFENESIN/DEXTROMETHORPHAN (MUCINEX DM ORAL) Take by mouth. Active guaifenesin/dextromethorphan (MUCINEX DM ORAL) (20 sources)guaifenesin/dextromethorphan (MUCINEX DM ORAL) Take by mouth two times a day. Activeiv contrast (will be provided with radiology test) (20 sources)Start: 10-21-2024 End: 43-83-9882bw contrast (will be provided with radiology test) [...] 1 each 10/21/2024 10/22/2024 ActiveStart: 04-20-2024 End: 33-86-1533dw contrast (will be provided with radiology test) [...] 1 Each 04/20/2024 04/21/2024 ExpiredStart: 03-17-2024 End: 92-77-7158vn contrast (will be provided with radiology test) [...] guidelines link. 1 Each 03/17/2024 05/18/2024 DiscontinuedStart: 26-00-8248nq contrast (will be provided with radiology test) [...] solution (9 sources)Nonsteroidal Anti-inflammatory Drug, Cyclooxygenase InhibitorStart: 86-97-9593reas 2 drop(s) into the eye(s) twice dailyketorolac (ACULAR) 0.5 % ophthalmic solution INSTILL 2 DROPS INTO AFFECTED EYE TWICE DAILY 10/01/2022 Activeloratadine 10 mg oral tablet (20 sources)Loratadine (CLARITIN PO) Take 10 mg by mouth ActivemetOLazone 5 mg oral tablet (20 sources)Thiazide-like DiureticStart: 11-13-2024 End: 45-52-1899itpx 1 tablet by mouth once dailymetOLazone (ZAROXOLYN) 5 mg tablet Indications: Anasarca Take 1 tablet by mouth once daily. 90 tablet 11/13/2024 ActiveStart: 08-21-2024 End: 26-95-3411xoqr 1 tablet by mouth once dailymetOLazone (ZAROXOLYN) 5 mg tablet Take 1 tablet by mouth once daily. 30 tablet 08/21/2024 09/04/2024 Yfitcwnyvkca28 hr mirabegron 50 mg extended release oral tablet (20 sources)beta3-Adrenergic AgonistStart: 01-26-2025 End: 49-36-8347arpj 1 tablet by mouth once dailyMirabegron (Myrbetriq) 50 mg tablet extended release 24 hr Active 50 MG PO Daily 30 February 22, 2025 12:00am Complies with drug therapyStart: 12-15-2024 End: 09-59-7145svbk 1 tablet by mouth once daily in the eveningmirabegron (MYRBETRIQ) 50 mg Tb24 Indications: Urge incontinence Take 1 tablet by mouth every evening. 30 tablet 2 12/15/2024 01/14/2025 ExpiredMultiple Vitamins- Minerals (MULTIVITAMIN ADULTS 50+ PO) (10 sources)Multiple Vitamins-Minerals (MULTIVITAMIN ADULTS 50+ PO) Take [...] morning . Activemupirocin 0.02 mg/mg topical ointment (15 sources)RNA Synthetase Inhibitor AntibacterialStart: 11-24-2024 End: 84-22-8352Airqlofpw 2 % ointment Active 1 APPLIC TOPICAL Twice daily March 10, 2025 5:41pm Complies with drug therapyStart: 11-12-2023 mupirocin (BACTROBAN) 2 % ointment Apply a small amount in each nostril using a cotton swab twice the day before surgery and once the morning of surgery. 22 g 0 11/12/2023 ActiveStart: 16-89-0995Lqudahzfm 2 % 1 application Externally Twice a day for 7 days Jun, Not-Taking/PRNOmega 3 (11 sources)[place] 3 ActiveOmega-3 Fatty Acids (4 sources)Start: 38-06-8463pjqc 500 mg by mouth once dailyOmega-3 Fatty Acids Active 500 MG PO Daily August 13, 2023 1:00amOmega-3 Fatty Acids 500 mg capsule (2 sources)Start: 33-71-7055cpuy 1 capsule by mouth once dailyOmega-3 Fatty Acids 500 mg capsule Active 500 MG PO Daily August 13, 2023 1:00am Complies with drug therapyStart: 44-54-6336lxip 1 capsule by mouth once dailyOmega-3 Fatty Acids 500 mg capsule Active 500 MG PO Daily August 13, 2023 1:00am ondansetron 4 mg disintegrating oral tablet (2 sources)Serotonin-3 Receptor AntagonistStart: 30-18-1081pjzt 1 tablet by mouth every eight hours as needed for nausea and vomitingOndansetron 4 mg tablet,disintegrating Active 4 MG PO Every 8 hours as needed for nausea and vomiting 04 15 2 July 14, 2024 1:00am Complies with drug therapy pantoprazole 40 mg delayed release oral tablet (20 sources)Proton Pump InhibitorStart: 02-22-2025 End: 22-42-1641okji 1 tablet by mouth once dailyPantoprazole 40 mg tablet,delayed release (DR/EC) Active 40 MG PO Daily 90 90 3 February 22, 2025 4:25pm Complies with drug therapyStart: 07-23-2024 End: 69-80-7139ffiq 1 tablet by mouth once dailyPantoprazole 40 mg tablet,delayed release (DR/EC) Discontinued 40 MG PO Daily 90 90 3 July 23, 2024 1:00am November 24, 2024 5:40pmStart: 04-28-2024 End: 91-00-2081stjd 1 tablet by mouth twice dailypantoprazole DR (PROTONIX) 40 mg tablet Take 1 tablet by mouth two times a day. 180 tablet 04/28/2024 10/14/2024 Discontinued (Duplicate Entry)microencapsulated potassium chloride 20 meq extended release oral tablet (20 sources)Start: 12-15-2024 End: 68-76-9321poal 2 tablets by mouth three times dailypotassium chloride ER (KLOR-CON M20) 20 mEq tablet Indications: Hypokalemia Take 2 tablets by mouth three times a day. 540 tablet 12/15/2024 03/15/2025 ActiveStart: 09-04-2024 End: 38-72-9919ogxq 2 tablets by mouth three times dailypotassium chloride (K- TAB) 20 mEq TbER Indications: Recurrent 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 , Hypokalemia 2 tablets by ORAL/FEEDING TUBE route three times a day. 540 tablet 09/04/2024 12/03/2024 ExpiredStart: 05-20-2024 End: 36-00-3519hwow 2 tablets by mouth twice dailypotassium chloride ER (KLOR- CON M20) 20 mEq tablet Indications: Hypokalemia Take 2 tablets by mouthtwo times a day. 360 tablet 06/12/2024 09/04/2024 DiscontinuedStart: 01-15-2024 End: 56-16-4268vggl 1 tablet by mouth three times dailypotassium chloride ER (KLOR-CON) 20 mEq tablet Indications: Recurrent 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 Take 1 tablet by mouth three times a day. 270 tablet 01/15/2024 04/14/2024 ActiveStart: 12-26-2023 End: 91-61-2064leri 1 tablet by mouth twice dailypotassium chloride ER (KLOR- CON) 20 mEq tablet Take 1 tablet by mouth two times a day. 60 tablet 1 0 12/26/2023 01/15/2024 DiscontinuedStart: 11-29-2023 End: 65-94-6499wfqn 1 tablet by mouth once dailypotassium chloride [...] acetate 10 mg/ml ophthalmic suspension (9 sources)CorticosteroidStart: 77-41-4554xdhdihatRSZM acetate (PRED FORTE) 1 % ophthalmic suspension INSTILL 1 DROP INTO AFFECTED EYE INTO AFFECTED EYE 4 TIMES DAILY DIRECTED 10/01/2022 ActivepredniSONE 50 mg oral tablet (20 sources)Start: 37-16-2835bikj 1 tablet by mouth once dailyPrednisone 50 mg tablet Active 50 MG PO Daily 3 3 0 November 07, 2023 12:00am Complies with drug therapyStart: 08-13-2023 End: 96-28-5806Umooyzpfyu 10 mg tablet Active 10 MG PO As Directed 18 9 0 August 13, 2023 5:25pm 1 tab tid w/ food x 3 days, then bid w/ food x 3 days, than qd w/ food x 3 days Complies with drug therapyStart: 07-23-2023 predniSONE 20 MG 1 tablet Orally bid w/ food x 4 days then qd w/ food x 4 days for 8 days Jul, ActivequiNINE sulfate 324 mg oral capsule (20 sources)AntimalarialStart: 10-19-2024 End: 01-81-0918pmxe 1 capsule by mouth twice dailyquiNINE 324 mg capsule Indications: Cramp and spasm Take 1 capsule by mouth two times a day. 180 cap roma 01/26/2025 ActiveStart: 09-24-2024 End: 82-24-3797txoj 1 capsule by mouth every twelve hoursquiNINE 324 mg capsule Take 1 capsule by mouth every 12 hours. 09/24/2024 10/19/2024 DiscontinuedStart: 07-21-2024 End: 52-17-3276qklm 1 capsule by mouth twice dailyquiNINE 324 mg capsule Indications: Muscle cramps Take 1 capsule by mouth two times a day. 60 capsule 2 07/21/2024 08/20/2024 Activetake 1 capsule by mouth every eight hoursquiNINE (Qualaquin) 324 MG capsule Take 324 mg by mouth every 8 (eight) hours Active spironolactone 25 mg oral tablet (20 sources)Aldosterone AntagonistStart: 12-07-2024 End: 86-90-5981xjrg 1 tablet by mouth once dailySpironolactone 25 mg tablet Active 25 MG PO Daily 90 90 3 January 22, 2025 1:05pm Complies with drug therapy torsemide 100 mg oral tablet (20 sources)Loop DiureticStart: 05-13-2024 End: 59-46-0126sbqi 1 tablet by mouth once dailytorsemide (DEMADEX) 100 mg tablet Indications: Recurrent 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 , Anasarca Take 1 tablet by mouth once daily. 90 tablet 1 11/13/2024 ActivetraZODone hydrochloride 100 mg oral tablet (17 sources)Serotonin Reuptake InhibitorStart: 09-04-2024 End: 89-04-6155qves 1 tablet by mouth once daily at bedtimetraZODone (DESYREL) 100 mg tablet Indications: Chronic insomnia Take 1 tablet by mouth daily at bedt christine. 30 tablet 2 09/04/2024 10/04/2024 Activevit A-vit C-vit M-aiys-ryfwuq (EYE VITAMIN AND MINERALS) 7,160-113-100 mxwl-kb-nsaa Tab (4 sources)take 1 tablet by mouth once daily in the morningvit A-vit C-vit U-ukdp-vfxfgp (EYE VITAMIN AND MINERALS) 7,160-113-100 eonr-ew-lqqd Tab Take 1 tablet by mouth every morning . 0 Activevit A-vit C-vit C-khlm-tshdcb 7,160-113-100 rzia-ic-drlr Tab (12 sources)take 1 tablet by mouth once daily in the morningvit A-vit C-vit I-ynaf-bdpbka 7,160-113-100 egvj-dv-edfl Tab Take 1 tablet by mouth every morning .Activetake 1 tablet by mouth once daily in the morningvit A-vit C-vit L-fcfg-byibxl 7,160-113-100 zcvz-aw-keym Tab Take 1 tablet by mouth every morning .0 ActiveVitamin C Oral (1 source)take 1 tablet by mouth once daily in the morningASCORBATE CALCIUM (VITAMIN C ORAL) Take 1 tablet by mouth every morning . ActiveVit A 7,160 Unit- Vit C 113 Mg-Vit E 100 Xjev-Efid-Anoehu Tablet (2 sources)take 1 tablet by mouth once daily in the morningvit A-vit C-vit X-hlpu-euqcol (EYE VITAMIN AND MINERALS) 7,160-113-100 jwxy-yy-lfne Tab Take 1 tablet by mouth every morning . Activezolpidem tartrate 5 mg oral tablet (4 sources)gamma-Aminobutyric Acid-ergic AgonistStart: 12-02-2023 End: 26-85-9292Ynkpstgm 5 mg tablet Active 0 PO Daily at bedtime as needed for insomnia 14 7 0 December 02, 2023 5:32pm Primary insomnia Primary insomnia 1-2 orally daily at bedtime PRN; Complies with drug therapy Completed/Discontinued Medications MedicationDrug Class(es)DatesSig (Normalized)Sig (Original)acetaminophen 500 mg oral tablet (20 sources)Start: 11-23-2023 End: 24-58-0855tcvk 2 tablets by mouth every six hoursacetaminophen (TYLENOL) 500 mg tablet Take 2 tablets by mouth every 6 hours. 11/23/2023 05/18/2024 D iscontinuedalbuterol 0.833 mg/ml / ipratropium bromide 0.167 mg/ml inhalation solution (20 sources)Anticholinergic, beta2-Adrenergic AgonistStart: 11-23-2023 End: 35-06-2284wdoz 3 mL by inhalation every six hours as neededipratropium- albuterol (DUONEB) 0.5 mg-3 mg(2.5 mg base)/3 mL nebu Inhale 3 mL as instructed every 6hours as needed for wheezing/shortness of breath. 360 mL 11/23/2023 05/13/2024 Discontinuedamoxicillin 500 mg oral capsule (20 sources)Penicillin-class AntibacterialStart: 01-28-2024 End: 15-53-4278gqsngolztnr (AMOXIL) 500 mg capsule 01/28/2024 11/19/2024 DiscontinuedStart: 11-31-9899jabancdreui (AMOXIL) 500 MG capsule Take 4 capsules one hour prior to dental procedure/cleaning . 4capsule 1 01/28/2024 Active amoxicillin 875 mg / clavulanate 125 mg oral tablet (15 sources)Penicillin-class AntibacterialStart: 08-19-2023 End: 76-18-9860uwdn 1 tablet by mouth every twelve hoursAmoxicillin-Pot Clavulanate 875-125 mg tablet Discontinued 1 TAB PO Every 12 hours 20 March 10, 2025 12:00am April 01, 2025 9:00amtake 1 tablet by mouth in the morningamoxicillin-clavulanate (Augmentin) 875-125 MG tablet Take 1 tablet by mouth in the morning and 1 tablet before bedtime. Activeamylase 841024 unt / lipase 80793 unt / protease 240401 unt delayed release oral capsule (9 sources)Start: 06-12-2024 End: 00-83-2179zmzp 2 capsules by mouth three times daily at mealtime xxtcyd-lbhfeyeq-vtprwry (CREON) 36,000-114,000- 180,000 unit delayed release capsule Indications: Exocrine pancreatic insufficiency Take 2 capsules by mouth three times a day with meals. 200 capsule 1 06/12/2024 07/21/2024 Discontinued azithromycin 250 mg oral tablet (20 sources)Macrolide AntimicrobialStart: 03-11-2024 End: 18-06-7175Wblwpzisxiow 250 mg tablet Discontinued 250 MG PO As Directed 6 5 0 July 14, 2024 6:10pm 2024 2:30pmStart: 29-97-9862Jpbfggphvifn 250 MG as directed Orally daily for 5 days May, Not-Taking/PRNbudesonide 3 mg delayed release oral capsule (20 sources)CorticosteroidStart: 04-30-2024 End: 85-28-3999prpq 3 capsules by mouth once daily, then [...] mg oral tablet (20 sources)Start: 12-26-2023 End: 88-40-1400hiym 1 tablet by mouth twice dailycalcium carbonate (OS-ELIZABETH 500) 500 mg calcium (1,250 mg) tablet Take 1 tablet by mouth two times a day. 180 tablet 12/26/2023 05/13/2024 IwfxlxbuevcoMHBWBTB-GXXHDKPGZ-WCIW ORAL (18 sources) End: 50-63-2422SDEJFOC-MAGNESIUM-ZINC ORAL Take by mouth. 05/18/2024 FvbkxzgxqyqjLIHCOEN-HVBHYKYSX-CVHQ ORAL Take by mouth. Activefamotidine 20 mg oral tablet (20 sources)Histamine-2 Receptor AntagonistStart: 02-22-2025 End: 14-42-1105pwxa 1 tablet by mouth once daily at bedtimeFamotidine 20 mg tablet Discontinued 20 MG PO Daily at bedtime 30 February 22, 2025 4:23pm February 22, 2025 4:26pmStart: 11-13-2024 End: 36-69-7893qtuo 1 tablet by mouth twice dailyFamotidine 20 mg tablet Discontinued 20 MG PO Twice daily 60 30 0 November 24, 2024 12:00am 2024 4:24pmfluticasone propionate 0.05 mg/actuat metered dose nasal spray (5 sources)CorticosteroidStart: 12-26-2023 End: 21-58-7430ccjm 2 spray(s) nasal route once daily at bedtimefluticasone (FLONASE) 50 mcg/actuation nasal spray Use 2 Sprays in each nostril daily at bedtime. 16 g 1 12/26/2023 01/15/2024 DiscontinuedFluticasone Propion-Salmeterol (18 sources)Corticosteroid, beta2-Adrenergic AgonistStart: 08-08-2023 End: 43-28-0560ylgt 1 dose by mouth every twelve hoursFluticasone Propion- Salmeterol 100-50 mcg/dose blister with device Discontinued 0 .ROUTE .COMPLEX 60 1 August 08, 2023 10:43am August 13, 2023 12:21pm INHALE 1 DOSE BY MOUTH EVERY 12 HOURSStart: 08-08-2023 End: 38-14-6257akvi 1 dose by mouth every twelve hoursFluticasone Propion- Salmeterol 100-50 mcg/dose blister with device Discontinued 0 .ROUTE .COMPLEX 60 August 08, 2023 10:43am August 13, 2023 12:21pm INHALE 1 DOSE BY MOUTH EVERY 12 HOURSStart: 08-08-2023 End: 79-65-7178zxqa 1 dose by mouth every twelve hoursFluticasone Propion- Salmeterol Discontinued 0 .ROUTE .COMPLEX 60 August 08, 2023 10:43am ua2023 12:21pm INHALE 1 DOSE BY MOUTH EVERY 12 HOURSStart: 08-07-2023 End: 25-61-6339zeky 1 puff(s) by inhalation every twelve hoursFluticasone Propion-Salmeterol 115-21 mcg/actuation HFA aerosol inhaler Discontinued 2 PUFF INHALATION Every 12 hours 12 30 August 07, 2023 10:58am August 08, 2023 10:43amStart: 08-07-2023 End: 19-90-7250ybpp 1 puff(s) by inhalation every twelve hoursFluticasone Propion-Salmeterol 115-21 mcg/actuation HFA aerosol inhaler Discontinued 2 PUFF INHALATION Every 12 hours 12 August 07, 2023 10:58am August 08, 2023 10:43amStart: 08-07-2023 End: 97-62-2647fsvh 1 puff(s) by inhalation every twelve hoursFluticasone Propion-Salmeterol Discontinued 2 PUFF INHALATION Every 12 hours 06 15August 07, 2023 10:58am August 08, 2023 10:43amStart: 08-06-2023 End: 53-00-9442riks 1 puff(s) by inhalation every twelve hoursFluticasone Propion-Salmeterol 115-21 mcg/actuation HFA aerosol inhaler Discontinued 2 PUFF INHALATION Every 12 hours August 06, 2023 1:00am August 07, 2023 10:58amStart: 08-06-2023 End: 59-29-8519gsrp 1 puff(s) by inhalation every twelve hoursFluticasone Propion-Salmeterol 115-21 mcg/actuation HFA aerosol inhaler Discontinued 2 PUFF INHALATION Every 12 hours 06 15August 06, 2023 1:00am August 07, 2023 10:58amStart: 08-06-2023 End: 11-80-6619vstx 1 puff(s) by inhalation every twelve hoursFluticasone Propion-Salmeterol Discontinued 2 PUFF INHALATION Every 12 hours 06 15August 06, 2023 1:00am August 07, 2023 10:58amfurosemide 40 mg oral tablet (20 sources)Loop DiureticStart: 12-27-2023 End: 77-44-8040elpx 1 tablet by mouth once dailyfurosemide (LASIX) 80 mg tablet Indications: Recurrent 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 Take 1 tablet by mouth once daily. 90 tablet 02/12/2024 05/13/2024 DiscontinuedStart: 12-26-2023 End: 59-72-6984wgwz 1 tablet by mouth once daily in the eveningfurosemide (LASIX) 40 mg tablet Indications: Recurrent 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 Take 1 tablet by mouth once daily. At 2 pm 90 tablet 02/12/2024 05/13/2024 Discontinued Start: 11-29-2023 End: 09-39-0007uhmz 1 tablet by mouth once dailyfurosemide (LASIX) 20 mg tablet Take 1 tablet by mouth once daily for 5 days. 5 tablet 0 407/04/2024 Discontinuedhydroxychloroquine sulfate 200 mg oral tablet (20 sources)Antimalarial, Antirheumatic AgentStart: 02-12-2024 End: 16-14-7976zyhi 1 tablet by mouth twice dailyhydrOXYchloroQUINE (PLAQUENIL) 200 mg tablet Indications: Recurrent 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 Take 1 tablet by mouth two times a day. 180 tablet 02/12/2024 05/13/2024 DiscontinuedStart: 12-27-2023 End: 88-59-1582plzc 1 tablet by mouth oncehydrOXYchloroQUINE (PLAQUENIL) 200 mg tablet Indications: Recurrent 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 , Pleural effusion Take 1 tablet by mouth every afternoon. 90 tablet 02/12/2024 02/12/2024 Discontinued lidocaine 0.04 mg/mg medicated patch (11 sources)Antiarrhythmic, Amide Local AnestheticStart: 11-24-2023 End: 04-11-8401vqbay 1 dose transdermal route once dailylidocaine (SALONPAS) 4 % patch Apply 1 Patch as directed once daily. 0 11/24/2023 12/20/2023 Discontinued losartan potassium 25 mg oral tablet (20 sources)Angiotensin 2 Receptor BlockerStart: 12-23-2023 End: 76-34-3946yebduggk (COZAAR) 25 mg tablet Take 1 tablet by mouth once daily. Patient should start on December 23, 2023. 0 12/23/2023 12/26/2023 DiscontinuedStart: 12-63-0625zmheaczl (COZAAR) 25 mg tablet Take 1 tablet by mouth once daily. Patient should start on December 23, 2023. 0 12/23/2023 SuspendedStart: 12-23-2023 losartan (COZAAR) 25 mg tablet Take 1 tablet by mouth once daily. Patient should start on December 23, 2023. 0 12/23/2023 ActiveStart: 47-57-3107kgdsvrwk (COZAAR) 25 mg tablet Take 1 tablet by mouth once daily. Patient should start on December 22. 0 12/23/2023 ActiveStart: 32-71-4065vhtbsrsm (COZAAR) 25 mg tablet Take 1 tablet by mouth once daily. Patient should start on December 23, 2023. 0 12/23/2023 ActiveStart: 51-48-8580bjoausnc (COZAAR) 25 mg tablet Take 1 tablet by mouth once daily. Patient should start on December 23, 2023. 0 12/23/2023 ActiveStart: 73-79-3995viisfkkp (COZAAR) 25 mg tablet Take 1 tablet by mouth once daily. Patient should start on December 23, 2023. 0 12/23/2023 ActiveStart: 12-23-2023 losartan (COZAAR) 25 mg tablet Take 1 tablet by mouth once daily. Patient should start on December 23, 2023. 0 12/23/2023 ActiveStart: 26-60-7406ekvrprcp (COZAAR) 25 mg tablet Take 1 tablet by mouth once daily. Patient should start on December 22. 0 12/23/2023 ActiveStart: 2023 End: 95-02-1132svij 1 tablet by mouth once dailyLosartan 25 mg tablet Discontinued 25 MG PO Daily August 13, 2023 1:00am November 24, 2024 5:40pm magnesium oxide 400 mg oral tablet (20 sources)Start: 12-26-2023 End: 63-88-1610edkn 1 tablet by mouth twice dailymagnesium oxide (MAG-OX) 400 mg (241.3 mg magnesium) tablet Take 1 tablet by mouth two times a day.60 tablet 01/27/2024 05/13/2024 Discontinuedmeloxicam 15 mg oral tablet (20 sources)Nonsteroidal Anti-inflammatory DrugStart: 07-20-2020 End: 08-61-5954wqys 1 tablet by mouth once dailyMeloxicam 15 mg tablet Discontinued 15 MG PO Daily August 13, 2023 1:00am November 24, 2024 5:40pm Start: 02-25-2017 End: 93-50-1175ffug 1 tablet by mouth twice daily as needed for painmeloxicam (MOBIC) 7.5 MG tablet Take 1 (one) tablet (7.5 mg total) by mouth 2 (two) times a day as needed for pain. 180 tablet 3 02/25/2017 02/25/2018 ActiveStart: 01-29-2017 End: 86-02-2386cadn 0.5 tablet by mouth twice dailymeloxicam (MOBIC) 15 MG tablet Indications: Status post total right knee replacement Take 0.5 (one-half) tablet (7.5 mg total) by mouth 2 (two) times a day. 180 tablet 3 01/29/2017 01/29/2018 Active End: 36-60-2572hssi 1-2 tablets by mouth once daily as neededmeloxicam (MOBIC) 7.5 MG tablet Take 7.5 mg by mouth daily 1-2 tabs prn . 0 07/20/2020 Discontinuedmetoprolol tartrate 25 mg oral tablet (12 sources)beta-Adrenergic BlockerStart: 11-23-2023 End: 18-26-5873xmys 1 tablet by mouth every twelve hoursmetoprolol tartrate, short acting, (LOPRESSOR) 25 mg tablet Take 1 tablet by mouth every 12 hours. M etoprolol was prescribed to prevent atrial fibrillation after thoracic surgery. Stop this medication after 30 days. 60 tablet 0 11/23/2023 12/26/2023 Discontinuedmontelukast 10 mg oral tablet (5 sources)Leukotriene Receptor AntagonistStart: 12-27-2023 End: 47-95-1046osfj 1 tablet by mouth once dailymontelukast (SINGULAIR) 10 mg tablet Take 1 tablet by mouth once daily. 30 tablet 1 12/27/2023 01/15/2024 DiscontinuedNebulizer and Compressor For Neb (INNOSPIRE ESSENCE) (12 sources)Start: 11-23-2023 End: 38-97-1871Lffjvywkq and Compressor For Neb (INNOSPIRE ESSENCE) 1 Each four times daily. 1 Each 0 11/23/2023 12/26/2023 DiscontinuedStart: 11-23-2023 End: 19-21-0090Czkrotbkj and Compressor For Neb (INNOSPIRE ESSENCE) 1 Each four times daily. 1 Each 0 11/23/2023 02/21/2024 SuspendedStart: 11-23-2023 End: 06-34-2652Gqpqsaplt and Compressor For Neb (INNOSPIRE ESSENCE) 1 Each four times daily. 1 Each 0 11/23/2023 02/21/2024 Activeomeprazole 40 mg delayed release oral capsule (20 sources)Proton Pump InhibitorStart: 07-20-2024 End: 45-01-9203xaya 1 capsule by mouth once dailyOmeprazole 40 mg capsule,delayed release(DR/EC) Discontinued 40 MG PO Daily 90 90 3 July 20, 2024 10:20pm July 23, 2024 10:20pmStart: 12-12-2023 End: 86-25-0253Whjqcdxhmp 20 mg capsule,delayed release(DR/EC) Discontinued 0 .ROUTE .COMPLEX 90 3 December 1145:53pm July 20, 2024 10:21pm TAKE 1 CAPSULE DAILY ON AN EMPTY STOMACH, FOLLOWED IN 30 MINUTES BY BREAKFASTStart: 18-79-9590coyl 1 capsule by mouth once daily as neededOmeprazole 20MG Omeprazole 20MG, 1 (one) Capsule Capsule daily on empty stomach followed in 30 minutes by bkfst # 0, 12/22/2021, No Refill. Active Oral daily on empty stomach followed in 30 minutes by bkfst for 0 *Pick strength-form from [facility] for eRX* Dec, Not-Taking/PRNStart: 09-28-2020 End: 90-32-8526zdua 1 capsule by mouth once dailyOmeprazole 20 mg capsule,delayed release(DR/EC) Discontinued 20 MG PO Daily October 21, 2020 12:00am December 12, 2023 9:40amStart: 66-25-4329agoh 2 capsules by mouth twice daily omeprazole (PRILOSEC) 20 mg capsule Take 40 mg by mouth two times a day. 0 09/28/2020 ActiveOmeprazole 20 mg capsule,delayed release(DR/EC) (1 source)Start: 12-12-2023 End: 85-97-2885Msmuqligjg 20 mg capsule,delayed release(DR/EC) Discontinued 0 .ROUTE .COMPLEX 90 December 12, 2023 5:53pm July 20, 2024 10:21pm TAKE 1 CAPSULE DAILY ON AN EMPTY STOMACH, FOLLOWED IN 30 MINUTES BYBREAKFASToxyCODONE hydrochloride 5 mg oral tablet (4 sources)Opioid AgonistStart: 11-23-2023 End: 65-84-1707kogv 1 tablet by mouth every six hours as neededoxyCODONE IR (ROXICODONE) 5 mg immediate release tablet Indications: Pleural effusion , Postoperative pain Take 1 tablet by mouth every 6 hours as needed for up to 7 days. 28 tablet 0 11/23/2023 11/30/2023 Expiredpolyethylene glycol 3350 54692 mg powder for oral solution (4 sources)Osmotic LaxativeStart: 11-24-2023 End: 37-04-5222toxdahpkwqnt glycol 3350 17 gram packet Take 1 Packet by mouth once daily for 7 days. Dissolve dosein 4 - 8 ounces of liquid and take as directed. 7 Packet 0 11/24/2023 12/01/2023 ExpiredraNITIdine 300 mg oral tablet (17 sources)Histamine-2 Receptor AntagonistStart: 10-21-2020 End: 51-43-1516jlrx 1 tablet by mouth once dailyRanitidine Hcl 300 mg Tablet Discontinued 300 MG PO Daily October 21, 2020 12:00am August 132:21pm Ranitidine HCl Activesildenafil 100 mg oral tablet (11 sources)Phosphodiesterase 5 InhibitorStart: 35-11-8676Twrlggvkgp Citrate 100MG Sildenafil Citrate 100MG, 1 (one) Tablet 1 PO PRN ED # 6, 01/03/2022, Ref. x5. Active Oral 1 PO PRN ED for 30 *Pick strength-form from [facility] for eRX* Dec, Not-Taking/PRNsucralfate 1000 mg oral tablet (16 sources)Aluminum ComplexStart: 12-15-2024 End: 29-16-2661fhln 1 tablet by mouth four times dailysucralfate (CARAFATE) 1 gram tablet Indications: Hiatal hernia Take 1 tablet by mouth four times daily. 120 tablet 2 12/15/2024 01/14/2025 ExpiredStart: 04-28-2024 End: 14-99-4617zzvz 1 tablet by mouth twice dailysucralfate (CARAFATE) 1 gram tablet Take 1 tablet by mouth two times a day. 60 tablet 04/28/2024 05/28/2024 Expiredtamsulosin hydrochloride 0.4 mg oral capsule (20 sources)alpha-Adrenergic BlockerStart: 10-21-2020 End: 42-76-8386iwmq 1 capsule by mouth once dailyTamsulosin 0.4 mg Capsule Discontinued 0.4 MG PO Daily October 21, 2020 12:00am November 24, 2024 5:42pm Problems Active Problems Problem ClassificationProblemDateDocumented DateEpisodic/ChronicAbdominal hernia (2 sources)Hiatal hernia; Translations: [Diaphragmatic hernia without obstruction or gangrene]64-85-0846YmpeltxnSqrntohg foot deformities (6 sources)Toe joint rigid; Translations: [Hallux rigidus, left foot]Onset: 90-40-9756QacyvclIdobz bronchitis (1 source)Acute bronchitis due to other specified organismsEpisodicCataract (16 sources)After-cataract of bilateral eyes; Translations: [Other secondary cataract, bilateral]Onset: 991874-01-3652LwkzoanOevzgju kidney disease (9 sources)Chronic kidney disease stage 3A ; Translations: [Stage 3a chronic kidney disease (HCC)]Onset: 759969-36-7349NugyefgQdhzpeo kidney disease (2 sources)Chronic kidney disease; Translations: [Stage 3a chronic kidney disease (HCC)]Onset: 15-11-5209Umjtuym obstructive pulmonary disease and bronchiectasis (2 sources)Unspecified chronic bronchitis; Translations: [Chronic bronchitis] Onset: 719599-14-3710ZbmjpxuGanetvl ulcer of skin (6 sources)Pressure ulcer of other site, stage 2; Translations: [Pressure ulcer, other site]50-96-7523LglwclgGgnxigfltk and other anemia (5 sources)Anemia; Translations: [Anemia, unspecified]60-09-7905Swxiwvtb Deficiency and other anemia (1 source)Anemia, unspecified; Translations: [Anemia, unspecified type]Onset: 30-15-7752WpqmsmvnHnimqkxn of white blood cells (18 sources)Leukocytosis; Translations: [Elevated white blood cell count, unspecified]Onset: 407761-28-5286AzwiebsGhbeqpbcm of lipid metabolism (20 sources)Hyperlipidemia; Translations: [Hyperlipidemia, unspecified]Onset: 367728-19-6785NzgdiuyOznfsyqjkwjret and diverticulitis (11 sources)Diverticulosis of sigmoid colon; Translations: [Diverticulosis of large intestine without perforation or abscess without bleeding]Chronic Esophageal disorders (20 sources)Gastroesophageal reflux disease; Translations: [Gastro-esophageal reflux disease without esophagitis]Onset: 197650-83-2801GbunwcbNkypfdpuh hypertension (20 sources)Essential hypertension; Translations: [Essential (primary) hypertension]Onset: 75-83-9407WfqmqnzQaxrrqbrp and duodenitis (1 source)Chronic gastritis; Translations: [Unspecified chronic gastritis without bleeding]53-23-0711VqjvqqbEdvkwrepfuovkxkf hemorrhage (20 sources)Blood-tinged feces; Translations: [Melena]73-72-4842DezqipqqRanqwrw on above:Problem List clean-up per request of Phys. EHR CmteGenitourinary symptoms and ill-defined conditions (2 sources)Urge incontinence of urine; Translations: [Urge incontinence] 05-08-5220AtffpiyBnjwr valve disorders (4 sources)Cardiac murmur, unspecified; Translations: [Undiagnosed cardiac murmurs]54-54-5560PetbkxodZymeqewvfzl (11 sources)Hemorrhoids; Translations: [Unspecified hemorrhoids]Episodic Hyperplasia of prostate (11 sources)Lower urinary tract symptoms due to benign prostatic hypertrophy; Translations: [Benign prostatic hyperplasia with lower urinary tract symptoms] ChronicMalaise and fatigue (2 sources)Other fatigue; Translations: [Fatigue]EpisodicMiscellaneous mental health disorders (3 sources)Chronic insomnia; Translations: [Psychophysiologic insomnia] 02-06-6772HrtxzjeTwkqfvu (1 source)Onychomycosis due to dermatophyte ; Translations: [Tinea unguium] 61-50-0703VtbrgejwTtolbc and vomiting (14 sources)Nausea and vomiting; Translations: [Nausea with vomiting, unspecified]Onset: 114337-96-0442ZtassiluTrtbgpmldrpzz gastroenteritis (20 sources)Lymphocytic colitis; Translations: [Other and unspecified noninfectious gastroenteritis and colitis]Onset: 583354-36-6091LpytlrsZrnu wounds of head; neck; and trunk (1 source)Laceration without foreign body of scalp, initial encounterEpisodic Osteoarthritis (20 sources)Unilateral primary osteoarthritis, left knee; Translations: [Osteoarthritis of knee]Onset: 124464-49-8481AujndxmZxmlsuidifyptt (6 sources)Osteoarthritis of left knee joint; Translations: [Osteoarthritis of left knee]Onset: Other aftercare (1 source)Other group home (current) drug therapyEpisodicOther aftercare (5 sources)Surgical follow-up; Translations: [Encounter for follow-up examination after completed treatment for conditions other than malignant neoplasm]23-36-6136LwvifpxpErbpn aftercare (2 sources)Follow-up status; Translations: [Encounter for follow-up examination after completed treatment for conditions other than malignant neoplasm] 82-60-7205AodfpjyyKlnol circulatory disease (1 source)Elevated blood-pressure reading, without diagnosis of hypertension EpisodicOther circulatory disease (1 source)Orthostatic hypotension; Translations: [Orthostatic hypotension] 14-99-6649QugdwgvkZgvwt connective tissue disease (20 sources)History of total knee arthroplasty; Translations: [Presence of artificial knee joint, bilateral]Onset: 394850-34-3497EzmjywoVdosg connective tissue disease (1 source)Metatarsalgia of left foot; Translations: [Metatarsalgia, left foot] 25-86-4004NyhzjhduCzgxw connective tissue disease (2 sources)Cramp; Translations: [Cramp and spasm]11-76-0991XbywmzpnEitui connective tissue disease (4 sources)Spasm; Translations: [Cramp and spasm]54-00-2882MucaqqotUnzmf connective tissue disease (6 sources)Pain of toe of left foot; Translations: [Pain in left toe(s)] 59-02-6761MlzfdhyiEdklo connective tissue disease (2 sources)Pain in toe; Translations: [Pain in right toe(s)]77-39-7240Rjntobsa Other diseases of veins and lymphatics (2 sources)Disorder of vein of lower extremity; Translations: [Venous insufficiency (chronic) (peripheral)]12-16-2805GtdnkgpxGsnvp ear and sense organ disorders (2 sources)Impacted cerumen; Translations: [Impacted cerumen, unspecified ear] 38-05-7641NhsxkzzjSwrte gastrointestinal disorders (16 sources)Dysphagia; Translations: [Dysphagia, unspecified]79-51-2467Fizoksap Comment on above:Problem List clean-up per request of Phys. EHR CmteOther gastrointestinal disorders (1 source)Dysphagia, unspecified; Translations: [Dysphagia]EpisodicOther gastrointestinal disorders (4 sources)Diarrhea; Translations: [Diarrhea, unspecified]10-95-9806Zoriwdem Other gastrointestinal disorders (9 sources)Ascites; Translations: [Other ascites]64-93-6479VtslgmgmAhnnt gastrointestinal disorders (2 sources)Other ascites; Translations: [Other ascites]Onset: 24-77-9274Obwjvzrg Other hematologic conditions (1 source)Elevated erythrocyte sedimentation rate; Translations: [Elevated sed rate]Onset: 23-88-7130PbzrwvhgTywhd injuries and conditions due to external causes (1 source)Other injury of unspecified body region, initial encounter; Translations: [Bruising]Onset: 97-52-0810AhttkulpBozrx liver diseases (2 sources)Cirrhosis of liver; Translations: [Unspecified cirrhosis of liver] 27-95-7357NnsqyzpVaezi liver diseases (1 source)Unspecified cirrhosis of liver; Translations: [Cirrhosis of liver without ascites, unspecified hepatic cirrhosis type (HCC)]Onset: 11-12-2024 ChronicOther liver diseases (8 sources)Alkaline phosphatase raised; Translations: [Abnormal levels of other serum enzymes]40-78-8412IzzoenpzVonds liver diseases (4 sources)Large liver; Translations: [Hepatomegaly, not elsewhere classified] 99-52-8894VoqllykqWvxgl lower respiratory disease (5 sources)Interstitial lung disease; Translations: [Interstitial pulmonary disease, unspecified]95-96-2989MremncaTjbuf lower respiratory disease (3 sources)Interstitial pulmonary disease, unspecified; Translations: [Interstitial pulmonary disease (HCC)]Onset: 46-94-6108UtjlxmcMerpr lower respiratory disease (19 sources)Cough; Translations: [Cough, unspecified]Onset: EpisodicOther lower respiratory disease (4 sources)Other forms of dyspnea; Translations: [Other respiratory abnormalities]60-07-8441HsjdedojJwdao lower respiratory disease (2 sources)Viral respiratory infection; Translations: [Other specified respiratory disorders]13-91-6821RiewywuxExtcf lower respiratory disease (2 sources)Cough; Translations: [Subacute cough]16-84-4967SsxfrejwPdgwv lower respiratory disease (1 source)Other specified respiratory disorders; Translations: [Unspecified viral infection]15-33-3142WgabsocoPfysj lower respiratory disease (5 sources)Peripheral cyanosis; Translations: [Cyanosis]38-62-5444KtetfibyUytxn male genital disorders (10 sources)Impotence of organic [...] [Lesion of plantar nerve, left lower limb]Onset: 15-96-9416PquldrvVazge nervous system disorders (1 source)Metabolic encephalopathy; Translations: [Metabolic encephalopathy] 54-52-6649YkbecqvVrzuk nervous system disorders (6 sources)Difficulty walking; Translations: [Difficulty in walking, not elsewhere classified]56-36-8606KbohynhXvfxy non-traumatic joint disorders (2 sources)Pain in left knee; Translations: [Pain in left knee]Onset: 01-16-2023 EpisodicOther nutritional; endocrine; and metabolic disorders (18 sources)Obesity; Translations: [Obesity, unspecified]Onset: 08-23-2014 77-64-1962CmrewxzWwcok nutritional; endocrine; and metabolic disorders (8 sources)Body [...] sources)Obese class I; Translations: [Obesity, unspecified]Onset: 10-25-2023 12-57-1911UhiadhkBqlup nutritional; endocrine; and metabolic disorders (5 sources)Hypomagnesemia; Translations: [Hypomagnesemia]89-41-8620VinzwpnPpswb nutritional; endocrine; and metabolic disorders (1 source)Obesity, unspecified; Translations: [Obesity, Class I, BMI 30-34.9] Onset: 70-68-2180CbihfgmAddyb nutritional; endocrine; and metabolic disorders (1 source)Hypomagnesemia; Translations: [Hypomagnesemia]Onset: 43-57-0746Hbmkmpd Other screening for suspected conditions (not mental disorders or infectious disease) (20 sources)Encounter for screening for malignant neoplasm of prostate; Translations: [Elevated C-reactive protein]Onset: 55-91-4806IzrvyespBavtd skin disorders (2 sources)Actinic keratosis; Translations: [Actinic keratosis]08-27-2024 EpisodicOther skin disorders (2 sources)Seborrheic keratosis; Translations: [Other seborrheic keratosis] 86-86-0723TfnnlgyaIfvpp skin disorders (2 sources)Lentiginosis; Translations: [Other melanin hyperpigmentation] 85-24-9814YrrqnewpWalkk skin disorders (1 source)Dystrophia unguium; Translations: [Nail dystrophy]70-63-9502Qbnkoqvg Pancreatic disorders (not diabetes) (1 source)Exocrine pancreatic insufficiency; Translations: [Exocrine pancreatic insufficiency]30-07-8214SsirkuimRmcxnhiu codes; unclassified (20 sources)Edema, generalized; Translations: [Generalized edema]Onset: 12-20-2023 Resolved: [id number]qdql codes; unclassified (1 source)Bilateral lower limb edema; Translations: [Localized edema]01-19-2024 EpisodicRetinal detachments; defects; vascular occlusion; and retinopathy (16 sources)Nonexudative age-related macular degeneration; Translations: [Nonexudative age-related macular degeneration, bilateral, early dry stage] Onset: 315250-91-2762GhrzhgoZdwt and subcutaneous tissue infections (8 sources)Cellulitis of left foot; Translations: [Cellulitis of left lower limb]63-07-2474BsoxtqphXjtfhsis lupus erythematosus and connective tissue disorders (1 source)Connective tissue disease overlap syndrome; Translations: [Other overlap syndromes]45-37-2994OhfjjfyCcvqwmhfscsa (1 source)Established Patient Follow-UpOnset: 77-81-3248Ogtwybiiusui (1 source)Cough, unspecified type; Translations: [Cough, unspecified type]Onset: 10-13-2024 Past or Other Problems Problem ClassificationProblemDateDocumented DateEpisodic/ChronicAbdominal pain (7 sources)Abdominal pain; Translations: [Unspecified abdominal pain]Onset: 666676-85-1451JvpnqrmnYcxqr and unspecified renal failure (20 sources)Acute renal failure syndrome; Translations: [Acute kidney failure, unspecified]Onset: 460796-62-3844FzvqvhpuEhuuf posthemorrhagic anemia (18 sources)Acute posthemorrhagic anemia; Translations: [Acute posthemorrhagic anemia]Onset: 460944-26-8507SuqiajpyLrjzsmornb disorders (4 sources)Esophageal disorders; Translations: [Gastro-esophageal reflux disease with esophagitis, without bleeding]Fluid and electrolyte disorders (4 sources)Hypokalemia; Translations: [Hypokalemia]Onset: EpisodicGenitourinary symptoms and ill-defined conditions (20 sources)Retention of urine; Translations: [Retention of urine, unspecified] Onset: 173466-38-2461LtlcpitsLbuarhnpfloq; infection of eye (except that caused by tuberculosis or sexually transmitteddisease) (16 sources)Blepharitis of upper and lower eyelids of bilateral eyes; Translations: [Unspecified blepharitis right eye, upper and lower eyelids]Onset: 433590-65-5076SkkhwzhwGpjjr aftercare (2 sources)Encounter for follow-up examination after completed treatment for conditions other than malignant neoplasm; Translations: [Follow-up exam]Onset: 72-68-2204PbmgscmySxtzb circulatory disease (20 sources)Raynaud's phenomenon; Translations: [Raynaud's syndrome without gangrene]Onset: 12-25-2023 Resolved: 859015-17-7561AettrakIsdfd circulatory disease (20 sources)History of pericarditis; Translations: [Personal history of other diseases of the circulatory system]Onset: 373651-28-4965BgtuzzobNpswv circulatory disease (1 source)Personal history of other diseases of the circulatory system; Translations: [History of pericarditis]Onset: 67-99-4737WfljxgtlTxqtp circulatory disease (1 source)Other specified symptoms and signs involving the circulatory and respiratory systems; Translations:[Poor perfusion of leg]Onset: 11-12-2024 EpisodicOther connective tissue disease (2 sources)Pain in right foot; Translations: [Pain in right foot]Onset: 81-80-2758NimjohihYxvyt connective tissue disease (2 sources)Pain in left foot; Translations: [Pain in left foot]Onset: 08-28-2022 EpisodicOther connective tissue disease (1 source)Other specified soft tissue disorders; Translations: [Leg swelling] Onset: 26-13-4547CfzgllowMyukh eye disorders (16 sources)Dry eyes; Translations: [Dry eye syndrome of bilateral lacrimal glands]Onset: 078008-06-9363PntrylmfLywaq eye disorders (16 sources)Chalazion of left upper eyelid; Translations: [Chalazion left upper eyelid]Onset: 511932-36-4944MksrkpziIrgod gastrointestinal disorders (20 sources)Esophageal dysphagia; Translations: [Other dysphagia]Onset: 042664-31-0148ImyqnvbvCrluj gastrointestinal disorders (1 source)Other dysphagia; Translations: [Esophageal dysphagia]Onset: 09-24-2024 EpisodicOther gastrointestinal disorders (1 source)Diarrhea, unspecified; Translations: [Diarrhea, unspecified type] Onset: 83-65-7396WqeenivtPrkfm hematologic conditions (20 sources)ESR raised; Translations: [Elevated erythrocyte sedimentation rate] Onset: 033179-07-3671KlcjfdehCyhap liver diseases (2 sources)Hepatomegaly, not elsewhere classified; Translations: [Hepatomegaly] Onset: 33-10-0688QbkhonjzYhoiu liver diseases (2 sources)Abnormal levels of other serum enzymes; Translations: [Elevated alkaline phosphatase level]Onset: 40-33-4084PlakhvfiXhstv lower respiratory disease (20 sources)Chronic cough; Translations: [Chronic cough]Onset: 03-17-2024 97-09-2408CszumvdoBxwgi lower respiratory disease (20 sources)Nodule of lung; Translations: [Solitary pulmonary nodule]Onset: 193613-71-0122XmgirzoiYyhtw lower respiratory disease (1 source)Cyanosis; Translations: [Extremity cyanosis]Onset: 79-73-3904Zlqqtcwx Other nervous system disorders (20 sources)Postoperative pain ; Translations: [Other acute postprocedural pain] Onset: 814396-16-9973TstmatgrXogzj upper respiratory disease (1 source)Other diseases of bronchus, not elsewhere classified; Translations: [Bronchiolar disease]Onset: 00-46-6968AypvyfvhGjbj-; endo-; and myocarditis; cardiomyopathy (except that caused by tuberculosis or sexually transmitted disease) (18 sources)Pericardial effusion; Translations: [Pericardial effusion]Onset: 919286-81-4536HojrbxrtJytdnpdvoqm and intestinal abscess (2 sources)Serositis; Translations: [Other peritonitis]Onset: 10-23-2024 47-96-1571XskhhkilLgbplnao; pneumothorax; pulmonary collapse (20 sources)Pleural effusion; Translations: [Pleural effusion, not elsewhere classified]Onset: 070266-99-6577OablkwttRvhfgwce codes; unclassified (2 sources)Generalized edema; Translations: [Anasarca]Onset: 45-95-7537Vhazuxlh Unclassified (3 sources)Subacute cough R05.2Unclassified (1 source)Cough, unspecified; Translations: [Cough, unspecified]Onset: 60-91-3260Njetierrbjns (2 sources)Decreased [id number] Results Test NameValueInterpretationReference RangeFacilityCNPTOUTREACHon 04-16-2025 CNPTOUTREACHNormalCKindred HealthcareBasophils Auto (Bld) [#/Vol]Ordered By: Pablito Hoffman on 35-93-9531Jornbepkp (Bld) [#/Vol]0.0 10 3/uL0.0-0.1FSelect Medical Specialty Hospital - Cleveland-FairhillBasophils/100 WBC Auto (Bld)Ordered By: Pablito Hoffman on 93-60-7955Hikgbxzga/100 WBC (Bld)0.5 %0.2-2.0[facility] Eosinophils/100 WBC Auto (Bld)Ordered By: Pablito Hoffman on 04-07-2025 Eosinophils/100 WBC (Bld)0.0 %Low0.9-7.0[facility] Erythrocyte distribution width Auto (RBC) [Ratio]Ordered By: Pablito Hoffman on 66-07-2653Pszjorckfpg distribution width (RBC) [Ratio]15.8 %High11.0-15.0 [facility] NorthGlobulin Calc (S) [Mass/Vol]Ordered By: Pablito Hoffman on 20-76-8535Lmddtjmc (S) [Mass/Vol]3.7 g/dLPremier Health Miami Valley Hospital NorthGlomerular filtration rate (GFR) estimation in non- AmericanOrdered By: Pablito Hoffman on 13-40-4856QZF/1.73 sq M.predicted among non-blacks MDRD (S/P/Bld) [Vol rate/Area]49 mL/min/{1.73_m2}Low>=60 mL/min/1.73m 2FSelect Medical Specialty Hospital - Cleveland-FairhillHematocrit Auto (Bld) [Volume fraction]Ordered By: Pablito Hoffman on 16-16-5858Ehaolrrvia (Bld) [Volume fraction]31.6 %Low42.0-54.0 [facility] NorthHemoglobin [Mass/volume] in BloodOrdered By: Pablito Hoffman on 10-50-7177Gyywoehwok (Bld) [Mass/Vol]10.0 g/dLLow14.0-18.0 [facility] NorthLaboratory - Chemistry and Chemistry - challengeOrdered By: Pablito Hoffman on 47-22-7210Rymcerp [Mass/Vol]2.5 g/dLLow 3.4-5.0[facility] NorthALP [Catalytic activity/Vol]93 U/L46-116 [facility] NorthALT [Catalytic activity/Vol]21 U/L16-63 [facility] NorthAST [Catalytic activity/Vol]U/ZQsb62-31 [facility] NorthBilirubin [Mass/Vol]0.6 mg/dL0.2-1.0[facility] NorthCalcium [Mass/Vol]8.5 mg/dL8.5-10.1FSelect Medical Specialty Hospital - Cleveland-FairhillChloride [Moles/Vol]105 mmol/H58-219YkslyqiivPremier Health Miami Valley Hospital NorthCO2 [Moles/Vol]23.4 mmol/L21.0-32.0[facility] Creatinine [Mass/Vol]1.41 mg/dLHigh0.70-1.30[facility] GFR/1.73 sq M.predicted MDRD (S/P/Bld) [Vol rate/Area]60 mL/min/{1.73_m2}>=60 mL/min/1.73m 2FSelect Medical Specialty Hospital - Cleveland-FairhillGlucose [Mass/Vol]92 mg/lC14-158 [facility] NorthMagnesium [Mass/Vol]2.2 mg/dL1.8-2.4FSelect Medical Specialty Hospital - Cleveland-FairhillPotassium [Moles/Vol]3.4 mmol/LLow3.5-5.1FSelect Medical Specialty Hospital - Cleveland-FairhillProtein [Mass/Vol]6.2 g/dLLow6.4-8.2FParma Community General Hospitalodium [Moles/Vol]137 mmol/W966-818DjbfwbqpfPremier Health [facility] Hospital NorthUrea nitrogen [Mass/Vol]24.0 mg/dLHigh7.0-18.0[facility] NorthUrea nitrogen/Creatinine [Mass ratio]17.0 mg/mgPremier Health Miami [facility] Hospital NorthLaboratory - Hematology and Cell countsOrdered By: Pablito Hoffman on 43-31-8592Yyeglhbu granulocytes/100 WBC (Bld)1.6 %High0.0-0.5FSelect Medical Specialty Hospital - Cleveland-FairhillLeukocytes [#/volume] corrected for nucleated erythrocytes in Blood by Automated counOrdered By: Pablito Hoffman on 56-83-3077NAT corrected for nucl RBC Auto (Bld) [#/Vol]7.5 10 3/uL4.0-11.0[facility] Lymphocytes Auto (Bld) [#/Vol]Ordered By: Pablito Hoffman on 22-48-9444Auhgzpjiiwz (Bld) [#/Vol]0.8 10 3/uLLow1.2-3.8[facility] Lymphocytes/100 WBC Auto (Bld)Ordered By: Pablito Hoffman on 04-07-2025 Lymphocytes/100 WBC (Bld)10.8 %Low20.5-60.0[facility] Auto (RBC) [Entitic mass]Ordered By: Pablito Hoffman on 75-48-0454WCN (RBC) [Entitic mass]30.4 pg25.9-34.0[facility] CenterHC Auto (RBC) [Mass/Vol]Ordered By: Pablito Hoffman on 54-71-9909KSXB (RBC) [Mass/Vol]31.6 g/dL 29.9-35.2FSelect Medical Specialty Hospital - Cleveland-FairhillMCV Auto (RBC) [Entitic vol]Ordered By: Pablito Hoffman on 51-39-3519UNW (RBC) [Entitic vol]96.0 oAFwgo44.0-94.0 [facility] NorthMonocytes Auto (Bld) [#/Vol]Ordered By: Pablito Hoffman on 82-07-1423Niziahmls (Bld) [#/Vol]0.9 10 3/uLHigh0.3-0.8[facility] NorthMonocytes/100 WBC Auto (Bld)Ordered By: Pablito Hoffman on 04-25-5086Tiyrtxjkt/100 WBC (Bld)11.4 %1.7-12.0[facility] Neutrophils Auto (Bld) [#/Vol]Ordered By: Pablito Hoffman on 12-22-7275Osypjvturlu (Bld) [#/Vol]5.7 10 3/uL1.4-6.5FSelect Medical Specialty Hospital - Cleveland-FairhillNeutrophils/100 WBC Auto (Bld)Ordered By: Pablito Hoffman on 55-14-2555Ljqgduaqfzw/100 WBC (Bld) 75.7 %High43.0-75.0[facility] NorthNo Panel InformationOrdered By: Pablito Hoffman on 61-24-2213Fqeymhzazod # (Auto)0.0 10 3/uL0.0-0.7FSelect Medical Specialty Hospital - Cleveland-FairhillImmature Granulocyte # (Auto)0.12 10 3/uLHigh0.00-0.03 [facility] NorthPlatelet mean volume Auto (Bld) [Entitic vol] Ordered By: Pablito Hoffman on 86-55-3642Ieqmephq mean volume (Bld) [Entitic vol] 9.7 fL9.5-13.5FSelect Medical Specialty Hospital - Cleveland-FairhillPlatelets Auto (Bld) [#/Vol] Ordered By: Pablito Hoffman on 53-92-4873C[place]lytway (Bld) [#/Vol]243 10 3/sF470-021 [facility] NorthRBC Auto (Bld) [#/Vol]Ordered By: Pablito Hoffman on 39-28-6557JBC (Bld) [#/Vol]3.29 10 6/uLLow4.70-6.10[facility] Hospitalerum or plasma albumin/globulin mass ratioOrdered By: Pablito Hoffman on 44-68-5745Fipnije/Globulin [Mass ratio]0.7 {ratio}[facility] Hospitalerum or plasma anion gap determinationOrdered By: Pablito Hoffman on 10-06-8334Parki gap [Moles/Vol]12.0 mmol/LFSelect Medical Specialty Hospital - [facility] Basophils Auto (Bld) [#/Vol]Ordered By: Pablito Hoffman on 52-40-1356Jfqadlswj (Bld) [#/Vol]0.0 10 3/uL0.0-0.1FSelect Medical Specialty Hospital - Cleveland-FairhillBasophils/100 WBC Auto (Bld)Ordered By: Pablito Hoffman on 66-96-4125Extwnhylk/100 WBC (Bld)0.5 % 0.2-2.0[facility] NorthEosinophils/100 WBC Auto (Bld)Ordered By: Pablito Hoffman on 17-13-7796Zwpvecyqtxu/100 WBC (Bld)0.0 %Low0.9-7.0[facility] NorthErythrocyte distribution width Auto (RBC) [Ratio]Ordered By: Pablito Hoffman on 35-23-8410Uqymtgqwdpc distribution width (RBC) [Ratio]15.9 % High11.0-15.0[facility] NorthGlobulin Calc (S) [Mass/Vol] Ordered By: Pablito Hoffman on 55-28-7351Wvbaluor (S) [Mass/Vol]3.9 g/dLPremier Health Miami Valley Hospital NorthGlomerular filtration rate (GFR) estimation in non- AmericanOrdered By: Pablito Hoffman on 89-22-5956WHE/1.73 sq M.predicted among non-blacks MDRD (S/P/Bld) [Vol rate/Area]55 mL/min/{1.73_m2}Low>=60 mL/min/1.73m 2FSelect Medical Specialty Hospital - Cleveland-FairhillHematocrit Auto (Bld) [Volume fraction]Ordered By: Pablito Hoffman on 62-04-8273Ltzvcrupmp (Bld) [Volume fraction]30.3 %Low42.0-54.0[facility] NorthHemoglobin [Mass/volume] in BloodOrdered By: Pablito Hoffman on 68-71-2395Hfbwjnhhql (Bld) [Mass/Vol]9.8 g/dLLow14.0-18.0[facility] NorthLaboratory - Chemistry and Chemistry - challengeOrdered By: Pablito Hoffman on 25-73-7589Zhzexvv [Mass/Vol]2.4 g/dLLow3.4-5.0[facility] NorthALP [Catalytic activity/Vol]92 U/C76-003OycttrszgPremier Health Miami Valley Hospital NorthALT [Catalytic activity/Vol]25 U/A40-41HnifsrovvPremier Health Miami Valley Hospital NorthAST [Catalytic activity/Vol]4 U/YQto29-07AvomzkescPremier Health [facility] Hospital NorthBilirubin [Mass/Vol] 0.7 mg/dL0.2-1.0[facility] NorthCalcium [Mass/Vol]8.4 mg/dLLow 8.5-10.1FSelect Medical Specialty Hospital - Cleveland-FairhillChloride [Moles/Vol]104 mmol/L98-107 [facility] NorthCO2 [Moles/Vol]25.3 mmol/L21.0-32.0[facility] NorthCreatinine [Mass/Vol]1.27 mg/dL0.70-1.30[facility] NorthGFR/1.73 sq M.predicted MDRD (S/P/Bld) [Vol rate/Area] mL/min/{1.73_m2}>=60 mL/min/1.73m 2FSelect Medical Specialty Hospital - Cleveland-FairhillGlucose [Mass/Vol]98 mg/rQ95-138OtelfipqvPremier Health Miami Valley Hospital NorthMagnesium [Mass/Vol]2.2 mg/dL1.8-2.4FSelect Medical Specialty Hospital - Cleveland-FairhillPotassium [Moles/Vol]3.4 mmol/LLow 3.5-5.1FSelect Medical Specialty Hospital - Cleveland-FairhillProtein [Mass/Vol]6.3 g/dLLow6.4-8.2 [facility] Hospitalodium [Moles/Vol]140 mmol/A310-090IhpfzggbqPremier Health Miami [facility] Hospital NorthUrea nitrogen [Mass/Vol]25.0 mg/dLHigh7.0-18.0[facility] NorthUrea nitrogen/Creatinine [Mass ratio]19.7 mg/mgPremier Health Miami [facility] Hospital NorthLaboratory - Hematology and Cell countsOrdered By: Pablito Hoffman on 45-90-3997Ohotoaaw granulocytes/100 WBC (Bld)1.2 %High0.0-0.5 [facility] NorthLeukocytes [#/volume] corrected for nucleated erythrocytes in Blood by Automated counOrdered By: Pablito Hoffman on 88-19-1612KSB corrected for nucl RBC Auto (Bld) [#/Vol]6.5 10 3/uL4.0-11.0[facility] NorthLymphocytes Auto (Bld) [#/Vol]Ordered By: Pablito Hoffman on 64-64-9947Aqetxhevobh (Bld) [#/Vol]0.9 10 3/uLLow1.2-3.8[facility] NorthLymphocytes/100 WBC Auto (Bld)Ordered By: Pablito Hoffman on 42-49-5855Tiycprvhzxd/100 WBC (Bld)13.6 %Low20.5-60.0[facility] NorthMCH Auto (RBC) [Entitic mass]Ordered By: Pablito Hoffman on 85-23-2356GZO (RBC) [Entitic mass]31.1 pg25.9-34.0[facility] NorthMCHC Auto (RBC) [Mass/Vol]Ordered By: Pablito Hoffman on 82-88-0423MEBJ (RBC) [Mass/Vol]32.3 g/dL29.9-35.2FSelect Medical Specialty Hospital - Cleveland-FairhillMCV Auto (RBC) [Entitic vol] Ordered By: Pablito Hoffman on 77-67-5233KRC (RBC) [Entitic vol]96.2 fLHigh 80.0-94.0[facility] NorthMonocytes Auto (Bld) [#/Vol]Ordered By: Pablito Hoffman on 44-55-2377Xqizdegul (Bld) [#/Vol]0.8 10 3/uL0.3-0.8[facility] NorthMonocytes/100 WBC Auto (Bld)Ordered By: Pablito Hoffman on 23-72-5091Ajqaultcg/100 WBC (Bld)12.9 %High1.7-12.0[facility] NorthNeutrophils Auto (Bld) [#/Vol]Ordered By: Pablito Hoffman on 04-06-2025 Neutrophils (Bld) [#/Vol]4.7 10 3/uL1.4-6.5FSelect Medical Specialty Hospital - [facility] Neutrophils/100 WBC Auto (Bld)Ordered By: Pablito Hoffman on 04-06-2025 Neutrophils/100 WBC (Bld)71.8 %43.0-75.0[facility] NorthNo Panel InformationOrdered By: Pablito Hoffman on 81-85-1361K-Reactive Protein, Quantitative6.70 mg/dLHigh<=0.50[facility] NorthEosinophils # (Auto)0.0 10 3/uL0.0-0.7FSelect Medical Specialty Hospital - Cleveland-FairhillImmature Granulocyte # (Auto)0.08 10 3/uLHigh0.00-0.03[facility] NorthPhosphorus Level 3.9 mg/dL2.6-4.7FSelect Medical Specialty Hospital - Cleveland-FairhillPlatelet mean volume Auto (Bld) [Entitic vol]Ordered By: Pablito Hoffman on 30-79-1991Vqdiiaxr mean volume (Bld) [Entitic vol]9.8 fL9.5-13.5FSelect Medical Specialty Hospital - Cleveland-FairhillPlatelets Auto (Bld) [#/Vol]Ordered By: Pablito Hoffman on 01-63-1116Bqyakxdkt (Bld) [#/Vol]250 10 3/uL 150-450[facility] NorthRBC Auto (Bld) [#/Vol]Ordered By: Pablito Hoffman on 64-79-9903NRA (Bld) [#/Vol]3.15 10 6/uLLow4.70-6.10Cl[facility] Hospitalerum or plasma albumin/globulin mass ratioOrdered By: Pablito Hoffman on 26-34-8065Zrezysd/Globulin [Mass ratio]0.6 {ratio}[facility] Hospitalerum or plasma anion gap determinationOrdered By: Pablito Hoffman on 39-82-9765Xbddr gap [Moles/Vol]14.1 mmol/LFSelect Medical Specialty Hospital - Cleveland-FairhillErythrocyte distribution width Auto (RBC) [Ratio]Ordered By: Bijal Kaur on 58-94-0756Pqszfjvuabk distribution width (RBC) [Ratio]15.9 % High11.0-15.0[facility] NorthGlomerular filtration rate (GFR) estimation in non- AmericanOrdered By: Bijal Kaur on 04-05-2025 GFR/1.73 sq M.predicted among non-blacks MDRD (S/P/Bld) [Vol rate/Area]53 mL/min/{1.73_m2}Low>=60 mL/min/1.73m 2FSelect Medical Specialty Hospital - [facility] Hematocrit Auto (Bld) [Volume fraction]Ordered By: Bijal Kaur on 04-05-2025 Hematocrit (Bld) [Volume fraction]29.1 %Low42.0-54.0[facility] NorthHemoglobin [Mass/volume] in BloodOrdered By: Bijal Kaur on 04-05-2025 Hemoglobin (Bld) [Mass/Vol]9.4 g/dLLow14.0-18.0[facility] Laboratory - Chemistry and Chemistry - challengeOrdered By: Bijal Kaur on 67-84-3059Jpmgnwm [Mass/Vol]8.4 mg/dLLow8.5-10.1FSelect Medical Specialty Hospital - Cleveland-FairhillChloride [Moles/Vol]102 mmol/K75-566RbcbhaznhPremier Health Miami [facility] Hospital NorthCO2 [Moles/Vol]25.9 mmol/L21.0-32.0[facility] CenterCreatinine [Mass/Vol]1.32 mg/dLHigh0.70-1.30[facility] NorthGFR/1.73 sq M.predicted MDRD (S/P/Bld) [Vol rate/Area]mL/min/{1.73_m2}>=60 mL/min/1.73m 2 [facility] NorthGlucose [Mass/Vol]101 mg/zP18-116XcfkxxujzPremier Health Miami Valley Hospital NorthPotassium [Moles/Vol]3.2 mmol/LLow3.5-5.1FParma Community General Hospitalodium [Moles/Vol]138 mmol/M093-738YcccpvuidPremier Health Miami [facility] Hospital NorthUrea nitrogen [Mass/Vol]28.0 mg/dLHigh7.0-18.0[facility] NorthUrea nitrogen/Creatinine [Mass ratio]21.2 mg/mgPremier Health Miami [facility] Hospital NorthLeukocytes [#/volume] corrected for nucleated erythrocytes in Blood by Automated counOrdered By: Bijal Kaur on 22-55-8784LQO corrected for nucl RBC Auto (Bld) [#/Vol]7.1 10 3/uL4.0-11.0[facility] Auto (RBC) [Entitic mass]Ordered By: Bijal Garciaomar on 81-62-4626CGZ (RBC) [Entitic mass]31.1 pg25.9-34.0[facility] CenterHC Auto (RBC) [Mass/Vol]Ordered By: Bijal Garciaomar on 21-62-4313PILV (RBC) [Mass/Vol] 32.3 g/dL29.9-35.2FSelect Medical Specialty Hospital - Cleveland-FairhillMCV Auto (RBC) [Entitic vol] Ordered By: Bijal Garciaomar on 53-28-3289UHL (RBC) [Entitic vol]96.4 fLHigh 80.0-94.0[facility] NorthNo Panel InformationOrdered By: Bijal Kaur on 94-75-1255E-Reactive Protein, Quantitative9.48 mg/dLHigh <=0.50[facility] NorthPlatelet mean volume Auto (Bld) [Entitic vol]Ordered By: Bijal Kaur on 02-70-2530Jzmmdcgr mean volume (Bld) [Entitic vol]9.7 fL9.5-13.5FSelect Medical Specialty Hospital - Cleveland-FairhillPlatelets Auto (Bld) [#/Vol] Ordered By: Obaydah Daromar on 82-08-1286Yljelysyn (Bld) [#/Vol]225 10 3/uL 150-450Prem[facility] NorthRBC Auto (Bld) [#/Vol]Ordered By: Obaydah Daromar on 01-26-7948SKI (Bld) [#/Vol]3.02 10 6/uLLow4.70-6.10Cl[facility] County Hospitalerum or plasma anion gap determinationOrdered By: Objuantiadah Daromar on 80-78-8006Kpqvo gap [Moles/Vol]13.3 mmol/LFSelect Medical Specialty Hospital - Cleveland-FairhillBasophils Auto (Bld) [#/Vol]Ordered By: Obaydah Daromar on 53-17-4558Qdgzkufpp (Bld) [#/Vol]0.0 10 3/uL0.0-0.1FSelect Medical Specialty Hospital - Cleveland-FairhillBasophils/100 WBC Auto (Bld)Ordered By: Obaydah Daromar on 04-04-2025 Basophils/100 WBC (Bld)0.2 %0.2-2.0[facility] Eosinophils/100 WBC Auto (Bld)Ordered By: Obaydah Daromar on 04-04-2025 Eosinophils/100 WBC (Bld)0.0 %Low0.9-7.0[facility] Erythrocyte distribution width Auto (RBC) [Ratio]Ordered By: Obaydah Daromar on 23-21-6149Oxazvwrwyta distribution width (RBC) [Ratio]15.9 %High11.0-15.0 [facility] NorthGlobulin Calc (S) [Mass/Vol]Ordered By: Obaydah Daromar on 76-05-6554Dshhcwsz (S) [Mass/Vol]4.2 g/dLPremier Health Miami Valley Hospital NorthGlomerular filtration rate (GFR) estimation in non- AmericanOrdered By: Obaydah Daromar on 85-12-0313ODX/1.73 sq M.predicted among non-blacks MDRD (S/P/Bld) [Vol rate/Area]46 mL/min/{1.73_m2}Low>=60 mL/min/1.73m 2FSelect Medical Specialty Hospital - Cleveland-FairhillHematocrit Auto (Bld) [Volume fraction]Ordered By: [facility] Josegallina on 36-75-0562Qeifcplxvv (Bld) [Volume fraction]32.0 %Low 42.0-54.0[facility] NorthHemoglobin [Mass/volume] in Blood Ordered By: [facility] on 97-56-3557Lfaczjjveb (Bld) [Mass/Vol]10.2 g/dLLow 14.0-18.0[facility] NorthLaboratory - Chemistry and Chemistry - challengeOrdered By: [facility] on 94-29-4510Dvdabgd [Mass/Vol]2.7 g/dLLow 3.4-5.0[facility] NorthALP [Catalytic activity/Vol]91 U/L46-116 [facility] NorthALT [Catalytic activity/Vol]20 U/L16-63 [facility] NorthAST [Catalytic activity/Vol]U/NBye11-47 [facility] NorthBilirubin [Mass/Vol]0.8 mg/dL0.2-1.0[facility] NorthCalcium [Mass/Vol]8.7 mg/dL8.5-10.1FSelect Medical Specialty Hospital - Cleveland-FairhillChloride [Moles/Vol]101 mmol/M79-061GxlsmvkicPremier Health Miami [facility] Hospital NorthCO2 [Moles/Vol]25.9 mmol/L21.0-32.0[facility] Creatinine [Mass/Vol]1.50 mg/dLHigh0.70-1.30[facility] GFR/1.73 sq M.predicted MDRD (S/P/Bld) [Vol rate/Area]55 mL/min/{1.73_m2}Low>=60 mL/min/1.73m 2FSelect Medical Specialty Hospital - Cleveland-FairhillGlucose [Mass/Vol]115 mg/dLHigh 74-106[facility] NorthPotassium [Moles/Vol]3.5 mmol/L3.5-5.1 [facility] NorthProtein [Mass/Vol]6.9 g/dL6.4-8.2FParma Community General Hospitalodium [Moles/Vol]138 mmol/W442-534OxzatrvyyPremier Health Miami Valley Hospital NorthUrea nitrogen [Mass/Vol]34.0 mg/dLHigh7.0-18.0[facility] NorthUrea nitrogen/Creatinine [Mass ratio]22.7 mg/mgPremier Health Miami Valley Hospital NorthLaboratory - Hematology and Cell countsOrdered By: Bijal Garciaomar on 73-34-9404Yjimmqcl granulocytes/100 WBC (Bld)0.6 %High0.0-0.5FSelect Medical Specialty Hospital - Cleveland-FairhillLeukocytes [#/volume] corrected for nucleated erythrocytes in Blood by Automated counOrdered By: Bijal Garciaomar on 04-04-2025 WBC corrected for nucl RBC Auto (Bld) [#/Vol]10.2 10 3/uL4.0-11.0[facility] NorthLymphocytes Auto (Bld) [#/Vol]Ordered By: Objuanitadacynthia Garciaomar on 42-37-2711Arnjtmbuvdn (Bld) [#/Vol]0.9 10 3/uLLow1.2-3.8[facility] NorthLymphocytes/100 WBC Auto (Bld)Ordered By: Objuanitadacynthia Garciaomar on 14-07-0735Ehvliidjqpw/100 WBC (Bld)8.8 %Low20.5-60.0[facility] Auto (RBC) [Entitic mass]Ordered By: Objuanitadacynthia Garciaomar on 76-32-5274ZKX (RBC) [Entitic mass]30.9 pg25.9-34.0[facility] NorthMCHC Auto (RBC) [Mass/Vol]Ordered By: Objuanitadah Joseomar on 00-48-1238AQJF (RBC) [Mass/Vol] 31.9 g/dL29.9-35.2FSelect Medical Specialty Hospital - Cleveland-FairhillMCV Auto (RBC) [Entitic vol] Ordered By: Objuanitadacynthia Garciaomar on 28-98-0224TSP (RBC) [Entitic vol]97.0 fLHigh 80.0-94.0[facility] NorthMonocytes Auto (Bld) [#/Vol]Ordered By: Objuanitadacynthia Garcaiomar on 73-56-1563Asxilthbu (Bld) [#/Vol]1.0 10 3/uLHigh0.3-0.8 [facility] NorthMonocytes/100 WBC Auto (Bld)Ordered By: Obaydah Daromar on 82-21-7490Oufwxfvex/100 WBC (Bld)9.6 %1.7-12.0[facility] NorthNeutrophils Auto (Bld) [#/Vol]Ordered By: Obaydah Daromar on 60-17-7923Pymqiemyslj (Bld) [#/Vol]8.3 10 3/uLHigh1.4-6.5FSelect Medical Specialty Hospital - Cleveland-FairhillNeutrophils/100 WBC Auto (Bld)Ordered By: Obaydah Daromar on 23-03-5851Ogwqszigijx/100 WBC (Bld)80.8 %High43.0-75.0[facility] NorthNo Panel InformationOrdered By: Objuanitadacynthia Garciaomar on 31-56-0980N-Reactive Protein, Lfsgbckctreg65.57 mg/dLHigh<=0.50[facility] Eosinophils # (Auto)0.0 10 3/uL0.0-0.7FSelect Medical Specialty Hospital - Cleveland-FairhillImmature Granulocyte # (Auto)0.06 10 3/uLHigh0.00-0.03[facility] Platelet mean volume Auto (Bld) [Entitic vol]Ordered By: Obaydah Daromar on 45-20-1631Kftuacys mean volume (Bld) [Entitic vol]10.2 fL9.5-13.5FSelect Medical Specialty Hospital - Cleveland-FairhillPlatelets Auto (Bld) [#/Vol]Ordered By: Obaydah Daromar on 52-99-5483Ddnkbbmpu (Bld) [#/Vol]231 10 3/dF075-137FtbrwpstrPremier Health Miami Valley Hospital NorthRBC Auto (Bld) [#/Vol]Ordered By: Obaydah Daromar on 72-90-0124LGH (Bld) [#/Vol]3.30 10 6/uLLow4.70-6.10[facility]ont County Hospitalerum or plasma albumin/globulin mass ratioOrdered By: Bijal Dunnr on 04-04-2025 Albumin/Globulin [Mass ratio]0.6 {ratio}[facility] Hospitalerum or plasma anion gap determinationOrdered By: Bijal Dunnr on 63-23-6255Ydygo gap [Moles/Vol]14.6 mmol/LFSelect Medical Specialty Hospital - Cleveland-FairhillBasophils/100 WBC Manual cnt (Bld)Ordered By: Bijal Dunnr on 85-49-8912Gxsedcpjz/100 WBC (Bld) 2.0 %0.2-2.0[facility] NorthEosinophils/100 WBC Manual cnt (Bld)Ordered By: Bijal Kaur on 18-36-8290Saectkbjkwq/100 WBC (Bld)0.0 %Low 0.9-7.0[facility] NorthErythrocyte distribution width Auto (RBC) [Ratio]Ordered By: Bijal Kaur on 90-34-5781Mpmjdyhjntf distribution width (RBC) [Ratio]15.9 %High11.0-15.0[facility] Glomerular filtration rate (GFR) estimation in non- AmericanOrdered By: Bijal Kaur on 71-26-9114SYX/1.73 sq M.predicted among non-blacks MDRD (S/P/Bld) [Vol rate/Area]53 mL/min/{1.73_m2}Low>=60 mL/min/1.73m 2FSelect Medical Specialty Hospital - Cleveland-FairhillHematocrit Auto (Bld) [Volume fraction]Ordered By: Bijal Kaur on 27-06-3978Aprzylynyh (Bld) [Volume fraction]30.8 %Low 42.0-54.0[facility] NorthHemoglobin [Mass/volume] in Blood Ordered By: Bijal Kaur on 00-20-1214Cuhbhmweth (Bld) [Mass/Vol]9.6 g/dLLow 14.0-18.0[facility] NorthLaboratory - Chemistry and Chemistry - challengeOrdered By: Bijal Kaur on 92-69-2849Zfubwfs [Mass/Vol]8.6 mg/dL 8.5-10.1FSelect Medical Specialty Hospital - Cleveland-FairhillChloride [Moles/Vol]101 mmol/L98-107 [facility] NorthCO2 [Moles/Vol]24.6 mmol/L21.0-32.0[facility] NorthCreatinine [Mass/Vol]1.32 mg/dLHigh0.70-1.30[facility] NorthGFR/1.73 sq M.predicted MDRD (S/P/Bld) [Vol rate/Area] mL/min/{1.73_m2}>=60 mL/min/1.73m 2FSelect Medical Specialty Hospital - Cleveland-FairhillGlucose [Mass/Vol]105 mg/bR93-210SevirclcgPremier Health Miami [facility] Hospital NorthPotassium [Moles/Vol] 3.9 mmol/L3.5-5.1FParma Community General Hospitalodium [Moles/Vol]138 mmol/L 136-145[facility] NorthUrea nitrogen [Mass/Vol]31.0 mg/dLHigh 7.0-18.0[facility] NorthUrea nitrogen/Creatinine [Mass ratio] 23.5 mg/mgPremier Health Miami [facility] Hospital NorthLaboratory - Hematology and Cell countsOrdered By: Bijal Kaur on 47-85-7064Fleexyvcybf/100 WBC (Bld)10.0 % Low20.5-60.0[facility] NorthMonocytes/100 WBC (Bld)4.0 % 1.7-12.0[facility] NorthLeukocytes [#/volume] corrected for nucleated erythrocytes in Blood by Automated counOrdered By: Bijal Kaur on 52-89-6452UHS corrected for nucl RBC Auto (Bld) [#/Vol]9.8 10 3/uL4.0-11.0 [facility] Auto (RBC) [Entitic mass]Ordered By: Bijal Kaur on 09-27-3899YBO (RBC) [Entitic mass]30.2 pg25.9-34.0[facility] NorthMC Auto (RBC) [Mass/Vol]Ordered By: Bijal Garciaomar on 30-70-0234WNDO (RBC) [Mass/Vol]31.2 g/dL29.9-35.2FSelect Medical Specialty Hospital - Cleveland-FairhillMCV Auto (RBC) [Entitic vol]Ordered By: Objuanitadacynthia Garciaomar on 94-57-3495HMA (RBC) [Entitic vol]96.9 oWApzb94.0-94.0[facility] NorthNo Panel InformationOrdered By: Bijal Garciaomar on 96-22-3821Fpxhtbir Basophils (Manual) 0.19 10 3/uLHigh0.00-0.10[facility] NorthC-Reactive Protein, Qhlsbmpsvukx56.38 mg/dLHigh<=0.50[facility] NorthEosinophils # (Manual)0.00 10 3/uL0.00-0.70[facility] NorthLymphocytes # (Manual)0.98 10 3/uLLow1.20-3.80[facility] NorthMonocytes # (Manual)0.39 10 3/uL0.30-0.80Cl[facility] County Hospitalegmented Neutrophils # (Manual)8.23 10 3/uLHigh1.4-6.5FSelect Medical Specialty Hospital - [facility]hill Platelet mean volume Auto (Bld) [Entitic vol]Ordered By: Bijal Garciaomar on 24-55-0950Jurybsvb mean volume (Bld) [Entitic vol]10.4 fL9.5-13.5FSelect Medical Specialty Hospital - Cleveland-FairhillPlatelets Auto (Bld) [#/Vol]Ordered By: Oblacy Garciaomar on 76-00-9709Apcuyujkg (Bld) [#/Vol]210 10 3/wG824-873HsylihkmgPremier Health Miami Valley Hospital NorthRBC Auto (Bld) [#/Vol]Ordered By: Objuanitadacynthia Garciaomar on 68-61-3441PYV (Bld) [#/Vol]3.18 10 6/uLLow4.70-6.10Clerm[facility] County Hospitalegmented neutrophils/100 WBC Manual cnt (Bld)Ordered By: Bijal Garciaomar on 04-03-2025 Segmented neutrophils/100 WBC (Bld)84.0 %High43.0-75.0Clerm[facility] County Hospitalerum or plasma anion gap determinationOrdered By: Bijal Kaur on 40-31-2238Uojgq gap [Moles/Vol]16.3 mmol/LFSelect Medical Specialty Hospital - [facility]-Fairhill Basophils Auto (Bld) [#/Vol]Ordered By: Yehuda Boggs on 61-27-1007Hysphjjmw (Bld) [#/Vol]0.0 10 3/uL0.0-0.1FSelect Medical Specialty Hospital - Cleveland-FairhillBasophils/100 WBC Auto (Bld)Ordered By: Yehuda Boggs on 37-36-7095Bxapvdmno/100 WBC (Bld)0.2 %0.2-2.0[facility] NorthEosinophils/100 WBC Auto (Bld)Ordered By: Yehuda Boggs on 67-42-0565Ayuivlujvxx/100 WBC (Bld)0.1 %Low0.9-7.0[facility] NorthErythrocyte distribution width Auto (RBC) [Ratio]Ordered By: Yehuda Boggs on 34-08-2943Tphmdiwxoia distribution width (RBC) [Ratio]16.0 %High11.0-15.0[facility] NorthGlobulin Calc (S) [Mass/Vol] Ordered By: Yehuda Boggs on 40-65-5670Yabbsojd (S) [Mass/Vol]4.6 g/dLPremier Health Miami Valley Hospital NorthGlomerular filtration rate (GFR) estimation in non- AmericanOrdered By: Yehuda Boggs on 50-01-0036WGH/1.73 sq M.predicted among non-blacks MDRD (S/P/Bld) [Vol rate/Area]39 mL/min/{1.73_m2}Low>=60 mL/min/1.73m 2FSelect Medical Specialty Hospital - Cleveland-FairhillHematocrit Auto (Bld) [Volume fraction]Ordered By: Yehuda Boggs on 82-00-0731Aggueiuont (Bld) [Volume fraction]34.3 %Low42.0-54.0[facility] NorthHemoglobin [Mass/volume] in BloodOrdered By: Yehuda Boggs on 85-30-1707Xodtzhbtmb (Bld) [Mass/Vol]11.1 g/dLLow14.0-18.0[facility] NorthLaboratory - Chemistry and Chemistry - challengeOrdered By: Yehuda Boggs on 04-02-2025 Bilirubin Ql (U)NegativeNEGATIVEPremier Health Miami [facility] Hospital NorthGlucose (U) [Mass/Vol]NegativeNEGATIVEPremier Health Miami Valley Hospital NorthKetones Ql (U) NegativeNEGATIVEPremier Health Miami Valley Hospital NorthpH (U)5.5 [pH]5.0-9.0Clerm[facility] Hospitalpecific gravity (U) [Rel density]1.0251.005-1.025 [facility] NorthUrobilinogen Qn (U)0.2 {Guido'U}/dL0.2-1.0 [facility] NorthAlbumin [Mass/Vol]3.1 g/dLLow3.4-5.0[facility] NorthALP [Catalytic activity/Vol]101 U/Q91-992PyccwcqmqPremier Health Miami [facility] Hospital NorthALT [Catalytic activity/Vol]21 U/P55-19UnbynlxsqPremier Health Miami [facility] Hospital NorthAST [Catalytic activity/Vol]13 U/GVgh36-78PlxopcjsdPremier Health Miami Valley Hospital NorthBilirubin [Mass/Vol]1.6 mg/dLHigh0.2-1.0[facility] NorthBilirubin.direct [Mass/Vol]0.5 mg/dLHigh0.0-0.2FSelect Medical Specialty Hospital - Cleveland-FairhillCalcium [Mass/Vol]9.1 mg/dL8.5-10.1FSelect Medical Specialty Hospital - [facility]hill Chloride [Moles/Vol]101 mmol/H82-038HvbjgrzfdPremier Health Miami [facility] Hospital NorthCO2 [Moles/Vol]24.6 mmol/L21.0-32.0[facility] NorthCreatinine [Mass/Vol]1.74 mg/dLHigh0.70-1.30[facility] NorthGFR/1.73 sq M.predicted MDRD (S/P/Bld) [Vol rate/Area]47 mL/min/{1.73_m2}Low>=60 mL/min/1.73m 2FSelect Medical Specialty Hospital - Cleveland-FairhillGlucose [Mass/Vol]109 mg/dLHigh 74-106[facility] NorthLactate [Moles/Vol]1.8 mmol/L0.4-2.0 [facility] NorthPotassium [Moles/Vol]4.8 mmol/L3.5-5.1FSelect Medical Specialty Hospital - Cleveland-FairhillProtein [Mass/Vol]7.7 g/dL6.4-8.2FParma Community General Hospitalodium [Moles/Vol]136 mmol/H754-295FjwhwvkbrPremier Health Miami Valley Hospital NorthUrea nitrogen [Mass/Vol]31.0 mg/dLHigh7.0-18.0[facility] NorthUrea nitrogen/Creatinine [Mass ratio]17.8 mg/mgPremier Health Miami [facility] Hospital NorthLaboratory - Hematology and Cell countsOrdered By: Yehuda Boggs on 98-79-6507Xdwdsqhh granulocytes/100 WBC (Bld)0.5 %0.0-0.5FSelect Medical Specialty Hospital - Cleveland-FairhillLaboratory - Specimen informationOrdered By: Yehuda Boggs on 57-82-2642Ljvmadsmli (U)CLEARCLEARFSelect Medical Specialty Hospital - Cleveland-FairhillColor (U) YELLOWYELLOWPremier Health Miami Valley Hospital NorthLaboratory - UrinalysisOrdered By: Yehuda Boggs on 70-48-1132Gyyuaqb casts LM Ql (Urine sed)[facility] DaytonLeukocyte esterase Test strip Ql (U)NegativeNEGATIVEPremier Health Miami Valley Hospital NorthMucus Ql (Urine sed)NONE SEENNONE [facility] SystemNitrite Ql (U)NegativeNEGATIVEPrem[facility] Health [facility] North Protein Ql (U)30 mg/dLAbnormalNEG/TRACEPremier Health Miami [facility] Hospital North Leukocytes [#/volume] corrected for nucleated erythrocytes in Blood by Automated counOrdered By: Yehuda Boggs on 02-16-7577HQT corrected for nucl RBC Auto (Bld) [#/Vol]12.7 10 3/uLHigh4.0-11.0[facility] Lymphocytes Auto (Bld) [#/Vol]Ordered By: Yehuda Boggs on 57-22-1319Ygekhsmqqib (Bld) [#/Vol]0.9 10 3/uLLow1.2-3.8[facility] Lymphocytes/100 WBC Auto (Bld)Ordered By: Yehuda Boggs on 04-02-2025 Lymphocytes/100 WBC (Bld)7.3 %Low20.5-60.0[facility] NorthMCH Auto (RBC) [Entitic mass]Ordered By: Yehuda Boggs on 98-85-5243DFC (RBC) [Entitic mass]31.3 pg25.9-34.0[facility] NorthMCHC Auto (RBC) [Mass/Vol]Ordered By: Yehuda Boggs on 93-83-8567CBZX (RBC) [Mass/Vol]32.4 g/dL 29.9-35.2FSelect Medical Specialty Hospital - Cleveland-FairhillMCV Auto (RBC) [Entitic vol]Ordered By: Yehuda Boggs on 92-03-1280TIY (RBC) [Entitic vol]96.6 jCJgac02.0-94.0 [facility] NorthMonocytes Auto (Bld) [#/Vol]Ordered By: Yehuda Boggs on 82-81-1467Opyvgnofh (Bld) [#/Vol]0.9 10 3/uLHigh0.3-0.8[facility] NorthMonocytes/100 WBC Auto (Bld)Ordered By: Yehuda Boggs on 21-04-6125Yndlqeldb/100 WBC (Bld)6.9 %1.7-12.0[facility] Neutrophils Auto (Bld) [#/Vol]Ordered By: Yehuda Boggs on 29-32-0889Vtcqpljyudv (Bld) [#/Vol]10.8 10 3/uLHigh1.4-6.5FSelect Medical Specialty Hospital - [facility]hill Neutrophils/100 WBC Auto (Bld)Ordered By: Yehuda Boggs on 04-02-2025 Neutrophils/100 WBC (Bld)85.0 %High43.0-75.0[facility] NorthNo Panel InformationOrdered By: Yehuda Boggs on 92-83-2700Ykxbq BacteriaNONE SEEN #/HPFNONE [facility] SystemUrine Culture ReflexedNOPremier Health Miami Valley Hospital NorthUrine Occult BloodNegativeNEGATIVEPremier Health [facility] Hospital NorthUrine Other CastsSEEN #/LPFAbnormalNONE [facility] SystemUrine Other CrystalsNone Seen #/HPFNone [facility] SouthUrine RBCNONE SEEN #/HPF0-2FSelect Medical Specialty Hospital - Cleveland-FairhillUrine Squamous Epithelial CellsRARE #/LPFNONE/RAREPremier Health Miami [facility] Hospital North Urine WBCNONE SEEN #/HPFNONE SEENPremier Health Miami Valley Hospital NorthEosinophils # (Auto)0.0 10 3/uL0.0-0.7FSelect Medical Specialty Hospital - Cleveland-FairhillImmature Granulocyte # (Auto)0.06 10 3/uLHigh0.00-0.03[facility] NorthPlatelet mean volume Auto (Bld) [Entitic vol]Ordered By: Yehuda Boggs on 52-69-8541Gzmuheuz mean volume (Bld) [Entitic vol]10.4 fL9.5-13.5FSelect Medical Specialty Hospital - [facility]hill Platelets Auto (Bld) [#/Vol]Ordered By: Yehuda Boggs on 89-40-5230Dspbgjbxk (Bld) [#/Vol]241 10 3/fL328-329ZtubldrvhPremier Health Miami Valley Hospital NorthRBC Auto (Bld) [#/Vol]Ordered By: Yehuda Boggs on 22-21-6749AXL (Bld) [#/Vol]3.55 10 6/uLLow 4.70-6.10Clerm[facility] County Hospitalerum or plasma albumin/globulin mass ratioOrdered By: Yehuda Boggs on 34-72-7684Elimwlu/Globulin [Mass ratio]0.7 {ratio}[facility] Hospitalerum or plasma anion gap determination Ordered By: Yehuda Boggs on 35-43-6545Xfolp gap [Moles/Vol]15.2 mmol/LFSelect Medical Specialty Hospital - Cleveland-FairhillXR CHEST 2V FRONTAL/LATon 32-35-6486TH CHEST 2V FRONTAL/LATNormalCSelect Medical [facility] [place] metabolic 2000 panelon 24-35-3816Umboc gap [Moles/Vol]13 mmol/LNormal8-15on HospitalComment on above: Order Comment: Specimen Type: BLOOD SPECIMEN Ordering Facility: [facility] Address: [address] [place], [place] [address]Mpgeubhjk By: #### [id number] #### [facility] CLIA [id number] [address] [address] [place] OF AMERICACalcium [Mass/Vol]8.7 mg/dLNormal8.5-10.2 [facility] HospitalComment on above:Order Comment: Specimen Type: BLOOD SPECIMEN Ordering Facility: [facility] Address: [address] [place], [place] [address]Performed By: #### [id number] #### [facility] CLIA [id number] [address] [place] [address] [place] OF AMERICAChloride [Moles/Vol]96 mmol/NVny59-257 [facility] HospitalComment on above:Order Comment: Specimen Type: BLOOD SPECIMEN Ordering Facility: [facility] Address: [address] [place], [place] [address]Performed By: #### [id number] #### [facility] CLIA [id number] [address] [place] [address] [place] AMERICACO2 [Moles/Vol]24 mmol/STbqsgb81-95Epne HospitalComment on above:Order Comment: Specimen Type: BLOOD SPECIMEN Ordering Facility: [facility] Address: [address] [place], [place] [address]Performed By: #### [id number] #### [facility] CLIA [id number] [address] [place] [address] [place] AMERICACreatinine [Mass/Vol]1.59 mg/dLHigh 0.73-1.22Kent HospitalComment on above:Order Comment: Specimen Type: BLOOD SPECIMEN Ordering Facility: [facility] Address: [address] [place], [place] [address]Performed By: #### [id number] #### [facility] CLIA [id number] [address] [place] [address] [place] AMERICAeGFRcr SerPlBld CKD-EPI [id number] mL/min/1.73m???Low>=60Av HospitalComment on above:Order Comment: Specimen Type: BLOOD SPECIMEN Ordering Facility: [facility] Address: [address] [place], [place] [id number] Comment: Estimated Glomerular Filtration Rate (eGFR) is [...] not accurately reflect actual GFR.Performed By: #### 79514-0 #### [facility] CLIA [id number] [address] [place] [address] [place] AMERICAGlucose [Mass/Vol]110 mg/lAIatj15-05Nlnk HospitalComment on above:Order Comment: Specimen Type: BLOOD SPECIMEN Ordering Facility: [facility] Address: [address] [id number] Comment: The [place] [employer] (ADA) provides guidance for cutoff [...] Standards of Medical Care in Diabetes 2016, [place] [employer]. Diabetes Care. 2016.39(Suppl 1).Performed By: #### 39070-3 #### [facility] CLIA [id number] [address] [place] [address] [place] AMERICAPotassium [Moles/Vol]3.8 mmol/LNormal 3.7-5.1Ainspira medical center vineland HospitalComment on above:Order Comment: Specimen Type: BLOOD SPECIMEN Ordering Facility: [facility] Address: [address] [place], [place] [address]Iernnlnxf By: #### 51626-1 #### [facility] CLIA [id number] [address] [place] [address] [place] AMERICASodium [Moles/Vol]133 mmol/POjp901-273 Kent HospitalComment on above:Order Comment: Specimen Type: BLOOD SPECIMEN Ordering Facility: [facility] Address: [address] [place], [place] [address]Performed By: #### [id number] #### [facility] CLIA [id number] [address] [place] [address] [place] AMERICAUrea nitrogen [Mass/Vol]34 mg/dLHigh9-24 Kent HospitalComment on above:Order Comment: Specimen Type: BLOOD SPECIMEN Ordering Facility: [facility] Address: [address] [place], [place] [address]Performed By: #### 39187-3 #### [facility] CLIA [id number] [address] [place] [address] [place] AMERICAPLATELET AGGREGATIONon 32-05-0533Erltobxd aggregation ADP induced 10 umol/L (PRP) [Rel units/Vol]64 % AiuCyqddl98-84Fxmg HospitalComment on above:Order Comment: Specimen Type: BLOOD SPECIMEN Ordering Facility: [facility] Address: [address] [place], [place] [address]Performed By: #### [id number], [id number] #### [facility] [place] [id number] [address] [place] [address] [place] AMERICAPlatelet aggregation ADP induced 20 umol/mL (PRP) [Rel units/Vol]73 % IquBasfkm50-33Siyh HospitalComment on above:Order Comment: Specimen Type: BLOOD SPECIMEN Ordering Facility: [facility] Address: [address] [place], [place] [address]Performed By: #### [id number], [id number] #### [facility] CLIA [id number] [address] [place] [address] [place] AMERICAPlatelet aggregation ADP induced ATP secretion 10 umol/L (Bld) [Rel units/Vol]0.8 nMNormal0.1-1.4Avon HospitalComment on above:Order Comment: Specimen Type: BLOOD SPECIMEN Ordering Facility: [facility] Address: [address] [place], [place] [address]Performed By: #### [id number], [id number] #### [facility] CLIA [id number] [address] [place] [address] [place] AMERICAPlatelet aggregation ADP induced ATP secretion 5 umol/L (Bld) [Rel units/Vol]0.4 nMNormal0.1-1.3Avon HospitalComment on above:Order Comment: Specimen Type: BLOOD SPECIMEN Ordering Facility: [facility] Address: [address] [place], [place] [address]Performed By: #### [id number], [id number] #### [facility] CLIA [id number] [address] [place] [address] [place] AMERICAPlatelet aggregation ADP induced High dose (PRP) [Rel units/Vol]57 % UosShl31-72Kfzk HospitalComment on above:Order Comment: Specimen Type: BLOOD SPECIMEN Ordering Facility: [facility] Address: [address] [place], [place] [address]Performed By: #### [id number], [id number] #### [facility] CLIA [id number] [address] [place] [address] STATES OF AMERICAPlatelet aggregation arachidonate induced 500 ug/mL (PRP) [Rel units/Vol]80 % VzePikihb18-709Pgft HospitalComment on above:Order Comment: Specimen Type: BLOOD SPECIMEN Ordering Facility: [facility] Address: [address] [place], [place] [address]Performed By: #### [id number], [id number] #### [facility] CLIA [id number] [address] [place] [address] STATES OF AMERICAPlatelet aggregation arachidonate induced ATP secretion 500 umol/L (Bld) [Rel units/Vol]0.7 nMNormal 0.4-2.0Avon HospitalComment on above:Order Comment: Specimen Type: BLOOD SPECIMEN Ordering Facility: [facility] Address: [address] [place], [place] [address]Performed By: #### [id number], [id number] #### [facility] CLIA [id number] [address] [place] [address] [place] AMERICAPlatelet aggregation collagen induced ATP secretion 1 ug/mL (Bld) [Rel units/Vol]0.6 nMNormal0.4-1.7 Subha HospitalComment on above:Order Comment: Specimen Type: BLOOD SPECIMEN Ordering Facility: [facility] Address: [address] [place], [place] [address]Performed By: #### [id number], [id number] #### [facility] CLIA [id number] [address] [place] [address] [place] AMERICAPlatelet aggregation collagen induced Qn (Bld)70 % [id number] HospitalComment on above:Order Comment: Specimen Type: BLOOD SPECIMEN Ordering Facility: [facility] Address: [address] [place], [place] [address]Performed By: #### [id number], [id number] #### [facility] CLIA [id number] [address] [place] [address] [place] AMERICAPlatelet aggregation EPINEPHrine induced (PRP) [Rel units/Vol]73 % [id number] HospitalComment on above:Order Comment: Specimen Type: BLOOD SPECIMEN Ordering Facility: [facility] Address: [address] [place], [place] [address]Performed By: #### [id number], [id number] #### [facility] CLIA [id number] [address] [place] [address] [place]ICAPlatelet aggregation EPINEPHrine induced 100 umol/L (PRP) [Rel units/Vol]76 % UdoFqavjk74-36Tfoz HospitalComment on above:Order Comment: Specimen Type: BLOOD SPECIMEN [facility] Facility[facility] Address: [address] [place], [place] [address]Performed By: #### [id number], [id number] #### [facility] CLIA [id number] [address] [place] [address] [place] OF AMERICAPlatelet aggregation ristocetin induced 1200 ug/mL (PRP) [Rel units/Vol]82 % LqtWmmwql49-416Txob HospitalComment on above:Order Comment: Specimen Type: BLOOD SPECIMEN [facility] Facility[facility] Address: [address] [place], [place] [address]Performed By: #### [id number], [id number] #### [facility] CLIA [id number] [address] [place] [address] [place] AMERICAPlatelet aggregation ristocetin induced 1500 ug/mL (PRP) [Rel units/Vol]85 % ZpdQepdxm88-614Jgay HospitalComment on above:Order Comment: Specimen Type: BLOOD SPECIMEN [facility] Facility: [facility] Address: [address] [place], [place] [address]Performed By: #### [id number], [id number] #### [facility] CLIA [id number] [address] [place] [address] [place] AMERICAPlatelet aggregation ristocetin induced 600 ug/mL (PRP) [Rel units/Vol]4 % MaxNormal0-9[facility] Comment on above:Order Comment: Specimen Type: BLOOD SPECIMEN [facility] Address: [address] [place], [place] [address]Performed By: #### [id number], [id number] #### [facility] CLIA [id number] [address] [place] [address] [place] AMERICAPlatelet aggregation ristocetin induced 900 ug/mL (PRP) [Rel units/Vol]75 % IhcMuqtmv29-412Thqa HospitalComment on above:Order Comment: Specimen Type: BLOOD SPECIMEN [facility] Facility[facility] Address: [address] [place], [place] [address]Performed By: #### [id number], [id number] #### [facility] CLIA [id number] [address] [place] [address] [place] AMERICAPlatelet aggregation thrombin induced ATP secretion 1 U/mL (Bld) [Rel units/Vol]1.0 nMNormal>0.5An HospitalComment on above:Order Comment: Specimen Type: BLOOD SPECIMEN [facility] Facility[facility] Address: [address] [place], [place] [address]Performed By: #### [id number], [id number] #### [facility] CLIA [id number] [address] [place] [address] STATES AMERICAPlatelet aggregation thrombin induced ATP secretion 5 U/mL (Bld) [Rel units/Vol]0.4 nMNormal0.2-1.4 [facility] HospitalComment on above:Order Comment: Specimen Type: BLOOD SPECIMEN [facility] Facility: [facility] Address: [address] [place], [place] [address]Performed By: #### [id number], [id number] #### [facility] CLIA [id number] [address] [place] [address] STATES AMERICAPLATELET AGGREGATION INTERP on 40-38-6309Vxlydxb Ab Platelet aggregation Ql (PPP)Reviewed by Edmund Lehman MDHoboken University Medical Center HospitalComment on above:Order Comment: Specimen Type: BLOOD SPECIMEN [facility] Facility[facility] Address: [address] [place], [place] [address]Performed By: #### [id number], [id number] #### [facility] CLIA [id number] [address] [place] [address] [place] AMERICAPlatelet aggregation (PPP) [Interp]NormalAv HospitalComment on above:Order Comment: Specimen Type: BLOOD SPECIMEN [facility] Facility[facility] Address: [address] [place], [place] [address]Result Comment: Abnormal - see comment below. A [...] clinical findings and medication history.Performed By: #### [id number], [id number] #### [facility] CLIA [id number] [address] [place] [address] [place] OF AMERICACNNURSEon 53-24-2903QPMDBKA NormalUc West Chester HospitalHISTORY PHYSICALon 66-75-4705UZVMQZV PHYSICAL NormalClinton Memorial Hospital PROGon 17-33-5013JBODCJL PROGNormal [facility] PROGNormalUc West Chester HospitalUpper GI endoscopyon 48-71-3248Tdoko GI endoscopyNormalCAdena [facility]ike Medical Center PROGon 82-95-6498ILYJXNM PROGNormalUc West Chester HospitalXR Foot - left 3 Viewson 37-29-1848Eamblgd Result: 3 views left foot: Weight-bearing: DP, oblique, lateral: 03/12/2025: Unremarkable for acute osseous or joint pathology. Unremarkable for fracture or stress fracture changes. There are no distinct lytic or erosive changes of the distal phalanx 2nd digit. Extensive degenerative arthritic changes of the 1st MTP joint.[facility] HealthcareRadiology Study observation (narrative)[facility] Comprehensive metabolic 2000 panelon 68-35-5438Mpzvrdx [Mass/Vol]4.0 g/dLNormal 3.9-4.9CUniversity [facility]als [facility] on above:Order Comment: Specimen Type: BLOOD SPECIMENOrdering Facility: [facility] Address:[address] [place], [place] [address]Performed By: #### 29362-4 ####[facility] LABCLIA [id number] [place], [place] [address]APJ [Catalytic activity/Vol]117 U/ZZggs02-332VmgcuwgnnPremier Health Atrium Medical Center on above:Order Comment: Specimen Type: BLOOD SPECIMENOrdering Facility: [facility] Address:[address] [place], [place] [address]Performed By: #### 80332-3 ####[facility] LABCLIA [id number] [place], [place] [address]UKA [Catalytic activity/Vol]16 U/OAwbllz32-77WatvgebwkPremier Health Atrium Medical Center on above:Order Comment: Specimen Type: BLOOD SPECIMENOrdering Facility: [facility] Address:[address] [place], [place] [address]Performed By: #### 19512-7 ####[facility] LABCLIA [id number] [place], [place] [address]Vvpzr gap [Moles/Vol]10 mmol/LNormal8-15[facility] on above:Order Comment: Specimen Type: BLOOD SPECIMENOrdering Facility: [facility] Address:[address] [place], [place] [address]Performed By: #### 83406- 8 ####[facility] LABCLIA [id number] [place], [place] [address]KKB [Catalytic activity/Vol]U/XBiy92-63BdaqhoucfPremier Health Atrium Medical Center on above:Order Comment: Specimen Type: BLOOD SPECIMENOrdering Facility: [facility] Address:[address] [place], [place] [address]Performed By: #### 56454-4 ####[facility] LABCLIA [id number] [place], [place] [address]Mrnxzivez [Mass/Vol]0.6 mg/dL Normal0.2-1.3CUniversity Hospitals [facility] Center on above:Order Comment: Specimen Type: BLOOD SPECIMENOrdering Facility: [facility] Address:[address] [place], [place] [address]Performed By: #### 13194-6 ####[facility] LABCLIA [id number] [place] [address] Calcium [Mass/Vol]8.7 mg/dLNormal8.5-10.2CUniversity Hospitals [facility] Center on above:Order Comment: Specimen Type: BLOOD SPECIMENOrdering Facility: [facility] Address:[address] [place], [place] [address]Performed By: #### 12964-9 ####[facility] LABCLIA [id number] [place], [place] [address]Xouqaohu [Moles/Vol]99 mmol/PSignbp86-912XendxqfelPremier Health Atrium Medical Center on above:Order Comment: Specimen Type: BLOOD SPECIMENOrdering Facility: [facility] Address:[address] [place], [place] [address]Performed By: #### 39461-3 ####[facility] LABIA [id number] [place], [place] [address]IZ1 [Moles/Vol] 23 mmol/BYfvoaj42-08CmlysnmebPremier Health Atrium Medical Center on above:Order Comment: Specimen Type: BLOOD SPECIMENOrdering Facility: [facility] Address:[address] [place], [place] [address]Performed By: #### 73995-1 ####[facility] LABIA [id number] [place], [place] [address]Lykkwlbgpy [Mass/Vol]1.23 mg/dLHigh0.73-1.22[facility] on above:Order Comment: Specimen Type: BLOOD SPECIMENOrdering Facility: [facility] Address:[address] [place], [place] [address]Performed By: #### 79587-3 ####[facility] LABCLIA [id number] [place], [place] [address]gNRDvr SerPlBld CKD-EPI 527108 mL/min/1.73m???Normal>=60[facility] on above:Order Comment: Specimen Type: BLOOD SPECIMENOrdering Facility: [facility] Address:[address] [place], [place] [address]Result Comment: Estimated Glomerular Filtration Rate (eGFR) is [...] not accurately reflect actual GFR.Performed By: #### 28796-1 ####[facility] LABCLIA [id number] [place], [place] [address]Wiyggvt [Mass/Vol]144 mg/jFMqml89-28TgeazkvusPremier Health Atrium Medical Center on above:Order Comment: Specimen Type: BLOOD SPECIMENOrdering Facility: [facility] Address:[address] [place], [place] [address]Result Comment: The [place] [employer] (ADA) provides guidance for cutoff [...] Standards of Medical Care in Diabetes 2016, [place] [employer]. Diabetes Care. 2016.39(Suppl 1).Performed By: #### 67440-0 ####[facility] LABCLIA [id number] [place], [place] [address]Adqwmdbsf [Moles/Vol]4.9 mmol/LNormal3.7-5.1CUniversity Hospitals [facility] on above:Order Comment: Specimen Type: BLOOD SPECIMENOrdering Facility: [facility] Address:[address] [place], [place] [address]Performed By: #### 96020-1 ####[facility] LABCLIA [id number] [place], [place] [address]Qgeizdr [Mass/Vol]6.8 g/dLNormal6.3-8.0[facility] on above:Order Comment: Specimen Type: BLOOD SPECIMENOrdering Facility: [facility] Address:[address] [place], [place] [address]Performed By: #### 85880- 8 ####[facility] LABCLIA [id number] [place], [place] [address]Sxnrba [Moles/Vol]132 mmol/AVtg232-015NmyinfbniPremier Health Atrium Medical Center on above:Order Comment: Specimen Type: BLOOD SPECIMENOrdering Facility: [facility] Address:[address] [place], [place] [address]Performed By: #### 11451-2 ####[facility] LABCLIA [id number] [place], [place] [address]Nxwy nitrogen [Mass/Vol]22 mg/dLNormal9-24[facility] on above:Order Comment: Specimen Type: BLOOD SPECIMENOrdering Facility: [facility] Address:[address] [place], [place] [address]Performed By: #### 93784-5 ####[facility] LABCLIA [id number] [place], [place] [address]COSTxz 94-90-8433ZGFJXwnskqTwduyzouq Clinic ClevelandCNOV on 47-51-0358FEZTAownhiQdizxugvl Clinic ClevelandCNPTOUTREACHon 02-25-2025 CNPTOUTREACHNormalCAultman Alliance Community Hospitaltory - Hematology and Cell countson 41-60-2654Efzgdbumja Ql (U)NegativeNegativeOhio State University Wexner Medical Centeroratory - Urinalysison 56-21-5261Eazxwlp Ql (U)NegativeNegative mg/dLOhiohealth Southeastern Medical CenterNo Panel Informationon 72-03-3854HTSHYWEZZ UA (POCT)NegativeNegativeOhiohealth Southeastern Medical CenterCLARITY UA (POCT)ClearCleSelect Medical Specialty Hospital - ColumbusCOLOR UA (POCT)Light yellowCleSelect Medical Specialty Hospital - ColumbusGLUCOSE UA (POCT)NegativeNegative mg/dLOhiohealth Southeastern Medical CenterKETONE UA (POCT) NegativeNegative mg/dLOhiohealth Southeastern Medical CenterLEUKOCYTES UA (POCT)NegativeNegative [facility] Medical CenterNITRITE UA (POCT)NegativeNegativeOhiohealth Southeastern Medical CenterPH UA (POCT)7.0 4.5 - 8.0St. Vincent HospitalPECIFIC GRAVITY UA (POCT)1.0151.005 - 1.030Ohiohealth Southeastern Medical CenterUROBILINOGEN UA (POCT)0.2Normal E.U./dLOhiohealth Southeastern Medical CenterLocation:[facility], [address] [place] [address], [address] [place] [address] POINT OF CARE [facility] CenterNo Panel Informationon 58-34-7487DXLJAVAAID: Cirrhotic liver morphology. No lesion. Patent hepatic vasculature with appropriately directed flow. Small volume abdominal ascites around the liver and in right lower quadrant. Sustainability Coach: ALONSO Transcribe Date/Time: Feb 19 2025 1:53P Dictated by : LISBETH REBOLLAR MD This examination was interpreted and the report reviewed and electronically signed by: LONNIE ANN MD on Feb 19 2025 3:15PM [facility] DIVISION OF RADIOLOGYRadiology Study observation (narrative)[facility] InformationOrdered By: Ccf Provider on 86-44-2761Pajobksbf ClinicUS ABD LIVER VASCULARon 26-66-4476NX ABD LIVER VASCULARNormalCberger hospitaland [facility] US DOPPLER COMPLETEon 07-54-5323PD DOPPLER COMPLETENormalCTrinity Health System.doppler Abdominal vesselson 02-19-2025* * *Final Report* * * DATE OF EXAM: Feb 19 2025 1:47PM RITA 1233 - US ABD LIVER VASCULAR / PROCEDURE REASON: Other ascites * * * * Physician Interpretation * * * * EXAMINATION: LIVER VASCULAR ULTRASOUND WITH DOPPLER IMAGING CLINICAL HISTORY: [place] liver biopsy 02/02/2025: Hepatic parenchyma with zone [...] normal, phasic wave form. DIVISION OF RADIOLOGYProvider, [facility] [place] - 02/19/2025 * * *Final Report* * * DATE OF EXAM: Feb 19 2025 1:47PM RITA 1233 - US ABD LIVER VASCULAR / PROCEDURE REASON: Other ascites * * * * Physician Interpretation * * * * EXAMINATION: LIVER VASCULAR ULTRASOUND WITH DOPPLER IMAGING CLINICAL HISTORY: [place] liver biopsy 02/02/2025: Hepatic parenchyma with zone [...] the liver and in right lower quadrant. Sustainability Coach: PSCB Transcribe Date/Time: Feb 19 2025 1:53P Dictated by : LISBETH REBOLLAR MD This examination was interpreted and the report reviewed and electronically signed by: LONNIE ANN MD on Feb 19 2025 3:15PM EST [facility].doppler Unspecified body regionon 02-19-2025* * *Final Report* * * DATE OF EXAM: Feb 19 2025 1:47PM RITA 1033 - US DOPPLER COMPLETE / PROCEDURE REASON: Other ascites * * * * Physician Interpretation * * * * EXAMINATION: LIVER VASCULAR ULTRASOUND WITH DOPPLER IMAGING CLINICAL HISTORY: [place] liver biopsy 02/02/2025: Hepatic parenchyma with zone [...] normal, phasic wave form. DIVISION OF RADIOLOGYProvider, [facility] [place] - 02/19/2025 * * *Final Report* * * DATE OF EXAM: Feb 19 2025 1:47PM RITA Aranda3 - US DOPPLER COMPLETE / PROCEDURE REASON: Other ascites * * * * Physician Interpretation * * * * EXAMINATION: LIVER VASCULAR ULTRASOUND WITH DOPPLER IMAGING CLINICAL HISTORY: [place] liver biopsy 02/02/2025: Hepatic parenchyma with zone [...] the liver and in right lower quadrant. Sustainability Coach: ALONSO Transcribe Date/Time: Feb 19 2025 1:53P Dictated by : LISBETH REBOLLAR MD This examination was interpreted and the report reviewed and electronically signed by: LONNIE ANN MD on Feb 19 2025 3:15PM [facility] West Campusprehenve metabolic 2000 panelon 42-64-8312Thwyzco [Mass/Vol]4.0 g/dLNormal3.9-4.9CUniversity Hospitals [facility] on above:Order Comment: Specimen Type: BLOOD SPECIMENOrdering Facility: [facility] Address:[address] [place], [place] [address]Performed By: #### 76317- 8 ####[facility] LABCLIA [id number] [place], [place] [address]UNI [Catalytic activity/Vol]106 U/ZIzqdyv19-127KfcdhvnsdPremier Health Atrium Medical Center on above:Order Comment: Specimen Type: BLOOD SPECIMENOrdering Facility: [facility] Address:[address] [place], [place] [address]Performed By: #### 03932-0 ####[facility] LABCLIA [id number] [place], [place] [address]GWV [Catalytic activity/Vol]17 U/QHezrln57-18PabqapildPremier Health Atrium Medical Center on above:Order Comment: Specimen Type: BLOOD SPECIMENOrdering Facility: [facility] Address:[address] [place], [place] [address]Performed By: #### 12625- 8 ####[facility] LABCLIA [id number] [place], [place] [address]Gszkd gap [Moles/Vol]12 mmol/LNormal8-15[facility] on above:Order Comment: Specimen Type: BLOOD SPECIMENOrdering Facility: [facility] Address:[address] [place], [place] [address]Performed By: #### 04173-3 ####[facility] LABCLIA [id number] [place], [place] [address]UJX [Catalytic activity/Vol]U/L Upx75-48HewlswhkiPremier Health Atrium Medical Center on above:Order Comment: Specimen Type: BLOOD SPECIMENOrdering Facility: [facility] Address:[address] [place], [place] [address]Performed By: #### 98952-4 ####[facility] LABCLIA [id number] [place] PLEITEZFLAGSTAFF MEDICAL CENTERNILESHHOU[place], [place] [address]Ptzwhlkif [Mass/Vol]0.5 mg/dLNormal0.2-1.3CUniversity Hospitals [facility] Center on above:Order Comment: Specimen Type: BLOOD SPECIMENOrdering Facility: [facility] Address:[address] [place], [place] [address]Performed By: #### 00683- 8 ####[facility] LABCLIA [id number] [facility] OZIEL FAULKNERFLAGSTAFF MEDICAL CENTERNILESHHOUSTON, [place] [address]Cpumqtd [Mass/Vol]9.2 mg/dLNormal8.5-10.2CUniversity Hospitals [facility] on above:Order Comment: Specimen Type: BLOOD SPECIMENOrdering Facility: [facility] Address:[address] [place], [place] [address]Performed By: #### 25883-1 ####[facility] LABCLIA [id number] [facility]ARE SYSTEMCHRISSNOWMASS [place]ILLAGE, [place] [address]Rzdmvwus [Moles/Vol]100 mmol/L Qgjydb15-598FypyovsodPremier Health Atrium Medical Center on above:Order Comment: Specimen Type: BLOOD SPECIMENOrdering Facility: [facility] Address:[address] [place], [place] [address]Performed By: #### 64032-3 ####[facility] LABCLIA [id number] [facility] [address] CO2 [Moles/Vol]23 mmol/NUetgpd64-60NsaqnknwgPremier Health Atrium Medical Center on above: Order Comment: Specimen Type: BLOOD SPECIMENOrdering Facility: [facility] Address:[address] [place], [place] [address]Performed By: #### 82639- 8 ####[facility] LABCLIA [id number] [place], [place] [address]Hqkivzcepk [Mass/Vol]1.26 mg/dLHigh0.73-1.22[facility] on above:Order Comment: Specimen Type: BLOOD SPECIMENOrdering Facility: [facility] Address:[address] [place], [place] [address]Performed By: #### 23468-8 ####[facility] LABCLIA [id number] [place], [place] [address]jVXObd SerPlBld CKD-EPI 191686 mL/min/1.73m???Normal>=60[facility] on above:Order Comment: Specimen Type: BLOOD SPECIMENOrdering Facility: [facility] Address:[address] [place], [place] [address]Result Comment: Estimated Glomerular Filtration Rate (eGFR) is [...] not accurately reflect actual GFR.Performed By: #### 79616-9 ####[facility] LABCLIA [id number] [place], [place] [address]Qikowsc [Mass/Vol]144 mg/nQHoks98-26LrcpuzqhjPremier Health Atrium Medical Center on above:Order Comment: Specimen Type: BLOOD SPECIMENOrdering Facility: [facility] Address:[address] [place], [place] [address]Result Comment: The [place] [employer] (ADA) provides guidance for cutoff [...] Standards of Medical Care in Diabetes 2016, [place] [employer]. Diabetes Care. 2016.39(Suppl 1).Performed By: #### 42402-1 ####[facility] LABCLIA [id number] [place], [place] [address]Mrfigqzku [Moles/Vol]4.2 mmol/LNormal3.7-5.1CUniversity Hospitals [facility] Center on above:Order Comment: Specimen Type: BLOOD SPECIMENOrdering Facility: [facility] Address:[address] [place], [place] [address]Performed By: #### 59710-0 ####[facility] LABIA [id number] [place], [place] [address]Sozfcjc [Mass/Vol]6.8 g/dLNormal6.3-8.0[facility] on above:Order Comment: Specimen Type: BLOOD SPECIMENOrdering Facility: [facility] Address:[address] [place], [place] [address]Performed By: #### 00445- 8 ####[facility] LABCLIA [id number] [place], [place] [address]Utpttk [Moles/Vol]135 mmol/QCzy108-376IkpjsapdoPremier Health Atrium Medical Center on above:Order Comment: Specimen Type: BLOOD SPECIMENOrdering Facility: [facility] Address:[address] [place], [place] [address]Performed By: #### 15823-6 ####[facility] LABCLIA [id number] [place], [place] [address]Enop nitrogen [Mass/Vol]27 mg/dLHigh9-24[facility] on above:Order Comment: Specimen Type: BLOOD SPECIMENOrdering Facility: [facility] Address:[address] [place], [place] [address]Performed By: #### 26447-4 ####[facility] LABIA [id number] [place] [address] BRIEF OP NOTon 38-31-1375MUEIW OP NOTNoOhio State University Wexner Medical CenterHISTORY PHYSICALon 52-05-8307VKNUYFL PHYSICALNoOhio State University Wexner Medical CenterIR TRANSJUG LIVER BX W/PRESSon 48-75-0194AB TRANSJUG LIVER BX W/PRESSNoOhio State University Wexner Medical CenterNURSING PROGon 27-83-5929BMXDBNV PROGNormalCleSelect Medical [facility] PT EDon 26-58-8374CT EDNoOhio State University Wexner Medical CenterPathology biopsy report Abhijit (Tiss)on 36-17-2706SS DISCLAIMERNoCleveland Clinic [facility] on above:Order Comment: Specimen Type: TISSUE SPECIMENOrdering Facility: [facility] Address: [address] [place] [address]Wqkgbv Comment: Laboratory Developed Test (LDT) Disclaimer:Performance characteristics of immunohistochemical, immunofluorescent, and chromogenic in-situ hybridization tests have been determined by the performing laboratory within [facility]'s [facility]Fl[facility] Pathology and Laboratory Medicine Department ([facility], [facility], [facility], [facility], [facility], [facility], or [facility]) in a manner consistent with CLIA requirements. One or more of these tests may not have been cleared or approved by the FDA. [facility] is regulated under CLIA as qualified to perform high-complexity testing. These tests are used for clinical purposes. These should not be regarded as investigational or for research. Positive and negative controls stain appropriately.Performed By: #### 84084-5 ####[facility] LABCLIA [id number] [address] [address] [facility] LABORATORYCLIA [id number] [place] [address] [place] [facility] THE CHRIST HOSPITALCASE REPORTNoOhio State University Wexner Medical CenterComcaro center on above:Order Comment: Specimen Type: TISSUE SPECIMENOrdering Facility: [facility] Address: [address] [place] [address]Bkpehb Comment: Surgical Pathology Report Case: [id number] Provider: Isaiah Murry MD Collected: 02/02/2025 10:11 AMOrdering Location: [place] [address] Received: 02/02/2025 03:49 PMPathologist: Lucy Ngo MDSpecimen: Liver, BiopsyPerformed By: #### 40856-2 ####[facility] LABCLIA [id number] [address] LABORATORYCLIA [id number] [address]ETCLINICAL HISTORYelevated ALPNationwide Children's HospitalComcaro center on above:Order Comment: Specimen Type: TISSUE SPECIMENOrdering Facility: [facility] Address: [address] [place], [place] [address]Performed By: #### 53841-5 ####[facility] LABIA [id number] [address] LABORATORYIA [id number] [address] STREETDIAGNOSIS COMMENTNoOhio State University Wexner Medical CenterComcaro center on above:Order Comment: Specimen Type: TISSUE SPECIMENOrdering Facility: [facility] Address: [address] [place], [place] [address]Result Comment: The histologic examination shows 2 cores of liver parenchyma exhibiting adequate num stormy of portal tracts for histologic evaluation. Portal tracts exhibit minimal mixed inflammation composed of predominantly lymphocytes admixed with rare plasma cells and eosinophils. [place] bile ducts are identified along with bile [...] hepatocytes (score 0 of 4+). CK7 highlights sun'aq bile ducts as well as biliary metaplasia. [...] with the diagnostic interpretation. Performed By: #### 45673-9 ####[facility] LABCLIA [id number] [address] LABORATORYIA [id number] [address]ETNoCleveland Clinic Mercy Hospital on above:Order Comment: Specimen Type: TISSUE SPECIMENOrdering Facility: [facility] Address: [address] [place], [place] [address]Result Comment: A. Liver, sun'aq, biopsy:- Hepatic parenchyma with zone 3 patchy sinusoidal dilatation, patchy dilated/angulated portal vein branches, and pericellular fibrosis.- See comment. at 1452 EDTPerformed By: #### 90562-7 ####[facility] LABCLIA [id number] [address] LABORATORYIA [id number] [address] LABNoCleveland Clinic Mercy [facility] on above:Order Comment: Specimen Type: TISSUE SPECIMENOrdering Facility: [facility] Address: [address] [place], [place] [address]Result Comment: Diagnostic interpretation performed at: [facility], [address] [place] [address], [place] [address] CLIA# [id number] Director: RAYRAY Thompsonerformed By: #### 23189-7 ####[facility] LABCLIA [id number] [address] LABORATORYCLIA [id number] [address]ETGRNAZARETH HOSPITAL DESCRIPTIONNormalCKindred HealthcareComment on above:Order Comment: Specimen Type: TISSUE SPECIMENOrdering Facility: [facility] Address: [address] [place], [place] [address]Result Comment: A. Liver, BiopsyReceived in formalin are two segments of cylindrical tissue aggregating to 1.5 x 0.2 x 0.1 cm, brown and of a soft and friable consistency. Totally submitted in one cassette.[facility] February 02, 2025 8:03 PMGross examination performed at [facility], [address] [place] [address] Performed By: #### 37628-1 ####[facility] LABCLIA [id number] [address] LABORATORYIA [id number] [address]REETURSBARNSTABLE COUNTY HOSPITAL PROGon 47-66-8067KTDKBZF PROGNormalUc West Chester HospitalBabaptist health la grange metabolic 2000 panelOrdered By: Sudha Granger on 01-25-2025 Anion gap [Moles/Vol]13 mmol/L8 - 15 mmol/LCleveland ClinicCalcium [Mass/Vol]9.8 mg/dL8.5 - 10.2 mg/dLOhiohealth Southeastern Medical CenterChloride [Moles/Vol]97 mmol/LLow98 - 107 mmol/LCleveland ClinicCO2 [Moles/Vol]25 mmol/L22 - 30 mmol/LC[facility] Clinic Creatinine [Mass/Vol]1.55 mg/dLHigh0.73 - 1.22 mg/dLSavannah ClinicGFR/1.73 sq M.predicted among non-blacks MDRD (S/P/Bld) [...] eGFRmay not accurately reflect actual GFR.Glucose [Mass/Vol]141 mg/uXAqne49 - 99 mg/dLOhiohealth Southeastern Medical Center Comment on above:The [place] [employer] Association (ADA) provides guidance for cutoff [...] Standards of Medical Care in Diabetes 2016, [place] [employer]. Diabetes Care. 2016.39(Suppl 1). Interpretation and review of laboratory resultsAbnormalCleveland ClinicPotassium [Moles/Vol]3.7 mmol/L3.7 - 5.1 mmol/LCleveland ClinicSodium [Moles/Vol]135 mmol/EKea777 - 144 mmol/LCleveland ClinicUrea nitrogen [Mass/Vol]56 mg/dLHigh9 - 24 mg/dLFulton County Health CenterBasi metabolic 2000 panelon 01-25-2025 Anion gap [Moles/Vol]13 mmol/LNormal8-15[facility] on above:Order Comment: Specimen Type: BLOOD SPECIMENOrdering Facility: [facility] Address:[address] [place] [address]Msxeypbjy By: #### 14535-0, 52863-8 ####[facility] LABCLIA [id number] [place], [place] [address]Azjzkvs [Mass/Vol]9.8 mg/dLNormal8.5-10.2 [facility] on above:Order Comment: Specimen Type: BLOOD SPECIMENOrdering Facility: [facility] Address:[address] [place], [place] [address]Ppypesajh By: #### 50775-2, 38691-1 ####[facility] LABCLIA [id number] [place], [place] [address]Jvesxvnu [Moles/Vol]97 mmol/HWex67-066UrfoumamkPremier Health Atrium Medical Center on above:Order Comment: Specimen Type: BLOOD SPECIMENOrdering Facility: [facility] Address:[address] [place] [address]Bgcjipmqt By: #### 47193- 9, 86534-6 ####[facility] LABCLIA [id number] [place], [place] [address]KB1 [Moles/Vol]25 mmol/FJtxnvj39-87KxaumyipbPremier Health Atrium Medical Center on above:Order Comment: Specimen Type: BLOOD SPECIMENOrdering Facility: [facility] Address:[address] [place], [place] [address]Performed By: #### 14843-4, 13482-1 ####[facility] LABCLIA [id number] [place], [place] [address]Mpjqdmpgkp [Mass/Vol] 1.55 mg/dLHigh0.73-1.22[facility] on above:Order Comment: Specimen Type: BLOOD SPECIMENOrdering Facility: [facility] Address:[address] [place], [place] [address]Performed By: #### 35384-4, 08462-1 ####[facility] LABCLIA [id number] [place], [place] [address]iJHXzw SerPlBld CKD-EPI 590101 mL/min/1.73m???Low>=60 [facility] on above:Order Comment: Specimen Type: BLOOD SPECIMENOrdering Facility: [facility] Address:[address] [place], [place] [address]Result Comment: Estimated Glomerular Filtration Rate (eGFR) is calculated using the 2020 CKD-EPI creatinine equation. This equation utilizes serum creatinine, sex, and age as parameters. The creatinine assay has traceable calibration to isotope dilution-mass spectrometry. Refer to KDIGO guidelines for clinical interpretation. In patients with unstable renal function, e.g. those with acute kidney injury, the eGFR may not accurately reflect actual GFR.Performed By: #### 64561-4, 58627-1 ####[facility] LABCLIA [id number] [place], [place] [address]Yrgcorf [Mass/Vol]141 mg/vSAanh98-73AduehldrlPremier Health Atrium Medical Center on above:Order Comment: Specimen Type: BLOOD SPECIMENOrdering Facility: [facility] Address:[address] [place], [place] [address]Result Comment: The [place] Diabetes Association (ADA) provides guidance for cutoff [...] Standards of Medical Care in Diabetes 2016, [place] [employer]. Diabetes Care. 2016.39(Suppl 1).Performed By: #### 76193-3, 19297-2 ####[facility] LABCLIA [id number] [place] [address] Potassium [Moles/Vol]3.7 mmol/LNormal3.7-5.1CUniversity Hospitals [facility] on above:Order Comment: Specimen Type: BLOOD SPECIMENOrdering Facility: [facility] Address:[address] [place] [address]Mmtvygvwy By: #### 34149-3, 33560-1 ####[facility] LABIA [id number] [place], [place] [address]Nrbpwl [Moles/Vol]135 mmol/TYue572-775 [facility] on above:Order Comment: Specimen Type: BLOOD SPECIMENOrdering Facility: [facility] Address:[address] [place], [place] [address]Performed By: #### 72101-8, 85126-6 ####[facility] LABCLIA [id number] [place], [place] [address]Axuq nitrogen [Mass/Vol]56 mg/dLHigh9-24Uc West Chester HospitalComment on above: Order Comment: Specimen Type: BLOOD SPECIMENOrdering Facility: [facility] Address:[address] [place], [place] [address]Performed By: #### 40278- 9, 88000-9 ####[facility] LABCLIA [id number] [place], [place] [address]AKC panel Auto (Bld)on 79-56-3166Qvllhpitvhl distribution width (RBC) [Ratio]14.7 %11.5 - 15.0 %Ohiohealth Southeastern Medical CenterHematocrit (Bld) [Volume fraction]37.9 %Low39.0 - 51.0 %[facility] Medical CenterHemoglobin (Bld) [Mass/Vol]12.2 g/dLLow13.0 - 17.0 g/dLOhiohealth Southeastern Medical CenterInterpretation and review of laboratory resultsAbnormalCMadison HealthH (RBC) [Entitic mass]32.5 pg26.0 - 34.0 pgCMadison HealthHC (RBC) [Mass/Vol]32.2 g/dL30.5 - 36.0 g/dLGalion HospitalV (RBC) [Entitic vol]101.1 bNVuvj70.0 - 100.0 [facility] Nucleated RBC (Bld) [#/Vol]NINFCUniversity Hospitals Conneaut Medical CenterPlatelet mean volume (Bld) [Entitic vol]9.8 fL9.0 - 12.7 fLCUniversity Hospitals Conneaut Medical CenterPlatelets (Bld) [#/Vol]197 10*3/uLOhiohealth Southeastern Medical CenterRBC (Bld) [#/Vol]3.75 10*6/uLLow4.20 - 6.00 m/[facility] Mercy HospitalWBC (Bld) [#/Vol]8.05 10*3/uLFulton County Health CenterErythrocyte distribution width (RBC) [Ratio]14.7 %Eurzik20.5-15.0[facility] Comment on above:Order Comment: Specimen Type: BLOOD SPECIMENOrdering Facility: [facility] Address:[address] [place] [address] Performed By: #### 22206-0 ####[facility] LABCLIA [id number] [place], [place] [address]Gudmancwsz (Bld) [Volume fraction]37.9 %Low39.0-51.0[facility] on above:Order Comment: Specimen Type: BLOOD SPECIMENOrdering Facility: [facility] Address:[address] [place], [place] [address]Performed By: #### 52697- 2 ####[facility] LABCLIA [id number] [place], [place] [address]Wqjzkdhhlv (Bld) [Mass/Vol]12.2 g/dLLow13.0-17.0[facility] on above:Order Comment: Specimen Type: BLOOD SPECIMENOrdering Facility: [facility] Address:[address] [place], [place] [address]Performed By: #### 31129-0 ####[facility] LABCLIA [id number] [place], [place] [address]HIM (RBC) [Entitic mass]32.5 hiIkpjcl22.0-34.0[facility] on above: Order Comment: Specimen Type: BLOOD SPECIMENOrdering Facility: [facility] Address:[address] [place], [place] [address]Performed By: #### 96114- 2 ####[facility] LABCLIA [id number] [place], [place] [address]MKYN (RBC) [Mass/Vol]32.2 g/dVRhrqhc46.5-36.0[facility] on above:Order Comment: Specimen Type: BLOOD SPECIMENOrdering Facility: [facility] Address:[address] [place], [place] [address]Performed By: #### 57909-1 ####[facility] LABCLIA [id number] [place], [place] [address]PRO (RBC) [Entitic vol]101.1 jQPhpx67.0-100.0[facility] on above: Order Comment: Specimen Type: BLOOD SPECIMENOrdering Facility: [facility] Address:[address] [place], [place] [address]Performed By: #### 01297- 2 ####[facility] LABCLIA [id number] [place], [place] [address]Btqaalwnh RBC (Bld) [#/Vol]10*3/uLNormal<0.01[facility] on above:Order Comment: Specimen Type: BLOOD SPECIMENOrdering Facility: [facility] Address:[address] [place], [place] [address]Performed By: #### 11193-2 ####[facility] LABIA [id number] [place], [place] [address]Pjhbtoom mean volume (Bld) [Entitic vol]9.8 fLNormal9.0-12.7CUniversity Hospitals [facility] Medical Center on above:Order Comment: Specimen Type: BLOOD SPECIMENOrdering Facility: [facility] Address:[address] [place] [address] Performed By: #### 72422-6 ####[facility] LABIA [id number] [place], [place] [address]Aaddkfraw (Bld) [#/Vol]197 10*3/pVInrkse173-645UyuamdcyhPremier Health Atrium Medical Center on above:Order Comment: Specimen Type: BLOOD SPECIMENOrdering Facility: [facility] Address:[address] [place], [place] [address]Performed By: #### 68284-4 ####[facility] LABCLIA [id number] [place], [place] [address]PEJ (Bld) [#/Vol]3.75 10*6/uLLow4.20-6.00[facility] on above:Order Comment: Specimen Type: BLOOD SPECIMENOrdering Facility: [facility] Address:[address] [place], [place] [address]Performed By: #### 86085-2 ####[facility] LABCLIA [id number] [place], [place] [address]QBE (Bld) [#/Vol]8.05 10*3/uL Normal3.70-11.00[facility] on above:Order Comment: Specimen Type: BLOOD SPECIMENOrdering Facility: [facility] Address:[address] [place], [place] [address]Performed By: #### 19291-2 ####[facility]IAL HOSPITALYARELI [facility] LABIA [id number] [place], [place] [address]DGCQTVNMJqy 21-13-5174Lvlivsszg [Mass/Vol]2.2 mg/dL1.7 - 2.3 mg/dLOhiohealth Southeastern Medical CenterMagnesium SerPl-mCncon 20-54-3679Kcdvxsrdl [Mass/Vol] 2.2 mg/dLNormal1.7-2.3CUniversity Hospitals [facility] on above:Order Comment: Specimen Type: BLOOD SPECIMENOrdering Facility: [facility] Address:[address] [place], [place] [address]Performed By: #### 64890-7, 28382-4 ####[facility] LABIA [id number] [place], [place] [address]Hftothbnt [Mass/Vol]on 32-37-5435Xytvnvudqwivza and review of laboratory resultsNormalCMercy Health Defiance HospitalCNOVon 81-89-3585GWYUNmsymmDpsfzowap Clinic KprytramlS0NH SerPl-mCncon 16-36-9962Apjwf 1 antitrypsin [Mass/Vol]167 mg/nVSkxhyj94-580WyplzvkssPremier Health [facility] Center on above:Order Comment: Specimen Type: BLOOD SPECIMENOrdering Facility: [facility] Address:[address] [place] [address] Performed By: #### 02661-9, 1825-9, 2324-2, 2276-4 ####[facility] LABIA [id number] [address]ETANA BY IFA WITH REFLEXon 01-47-1937Fsptxdl Ab Ql (S)Negative NormalNegativePremier Health Atrium Medical Center on above:Order Comment: Specimen Type: BLOOD SPECIMENOrdering Facility: [facility] Address:[address] [place], [place] [address]Result Comment: Anti-nuclear antibody test is used as an aid in diagnosis of systemic autoimmune diseases. Where positive and clinically warranted, follow-up using disease-specific testing is recommended. Low positive titers are not uncommon with advanced age, certain chronic infections, and malignancies among others.Test methodology: Indirect fluorescence immunoassay (IFA) using HEp-2 cells.Performed By: #### ANAIFR ####[facility] LABIA [id number] [address]CBC panel Auto (Bld)on 01-08-2025 Erythrocyte distribution width (RBC) [Ratio]15.8 %High11.5-15.0[facility] on above:Order Comment: Specimen Type: BLOOD SPECIMENOrdering Facility: [facility] Address:[address] [place], [place] [address]Performed By: #### 03676-9 ####[facility] LABCLIA [id number] [place], [place] [address]Vsqfekisot (Bld) [Volume fraction]37.0 %Low39.0-51.0[facility] on above:Order Comment: Specimen Type: BLOOD SPECIMENOrdering Facility: [facility] Address:[address] [place], [place] [address]Performed By: #### 36115- 2 ####[facility] LABCLIA [id number] [place], [place] [address]Abrtvjzeso (Bld) [Mass/Vol]11.7 g/dLLow13.0-17.0[facility] on above:Order Comment: Specimen Type: BLOOD SPECIMENOrdering Facility: [facility] Address:[address] [place], [place] [address]Performed By: #### 33647-4 ####[facility] LABCLIA [id number] [place], [place] [address]DOY (RBC) [Entitic mass]32.7 wwWlquib39.0-34.0[facility] on above: Order Comment: Specimen Type: BLOOD SPECIMENOrdering Facility: [facility] Address:[address] [place], [place] [address]Performed By: #### 59997- 2 ####[facility] LABIA [id number] [place], [place] [address]YJYR (RBC) [Mass/Vol]31.6 g/dXWwkltw93.5-36.0[facility] on above:Order Comment: Specimen Type: BLOOD SPECIMENOrdering Facility: [facility] Address:[address] [place], [place] [address]Performed By: #### 80245-1 ####[facility] LABIA [id number] [place], [place] [address]GXV (RBC) [Entitic vol]103.4 bUAsms58.0-100.0[facility] on above: Order Comment: Specimen Type: BLOOD SPECIMENOrdering Facility: [facility] Address:[address] [place], [place] [address]Performed By: #### 15631- 2 ####[facility] LABIA [id number] [place], [place] [address]Gxlixieue RBC (Bld) [#/Vol]10*3/uLNormal<0.01[facility] on above:Order Comment: Specimen Type: BLOOD SPECIMENOrdering Facility: [facility] Address:[address] [place], [place] [address]Performed By: #### 31799-6 ####[facility] LABCLIA [id number] [place], [place] [address]Wfafjwit mean volume (Bld) [Entitic vol]9.7 fLNormal9.0-12.7CUniversity Hospitals [facility] Center on above:Order Comment: Specimen Type: BLOOD SPECIMENOrdering Facility: [facility] Address:[address] [place] [address] Performed By: #### 84866-4 ####[facility] LABCLIA [id number] [place], [place] [address]Unexqehjj (Bld) [#/Vol]228 10*3/dLPzabpo830-200MubitzjiaPremier Health Atrium Medical Center on above:Order Comment: Specimen Type: BLOOD SPECIMENOrdering Facility: [facility] Address:[address] [place], [place] [address]Performed By: #### 57580-4 ####[facility] LABCLIA [id number] [place], [place] [address]CQK (Bld) [#/Vol]3.58 10*6/uLLow4.20-6.00[facility] on above:Order Comment: Specimen Type: BLOOD SPECIMENOrdering Facility: [facility] Address:[address] [place], [place] [address]Performed By: #### 29918-3 ####[facility] LABCLIA [id number] [place], [place] [address]LQW (Bld) [#/Vol]9.63 10*3/uL Normal3.70-11.00[facility] on above:Order Comment: Specimen Type: BLOOD SPECIMENOrdering Facility: [facility] Address:[address] [place], [place] [address]Performed By: #### 43879-4 ####[facility] LABCLIA [id number] [place], [place] [address]ZII IgM Qnon 47-89-5436SQP IGM, QUALPositiveAbnormal NegativePremier Health Atrium Medical Center on above:Order Comment: Specimen Type: BLOOD SPECIMENOrdering Facility: [facility] Address:[address] [place], [place] [address]Result Comment: The result suggests recent infection with Cytomegalovirus (CMV) or recent CMV reactivation. CMV IgM levels may remain elevated for extended periods after a primary infection. Clinical correlation is required.Performed By: #### 7853-5 ####[facility] LABCLIA [id number] [address] OF AMERICAComprehensive metabolic 2000 panelon 50-06-7771Xodxuyd [Mass/Vol]4.1 g/dLNormal3.9-4.9CUniversity Hospitals [facility] Center on above:Order Comment: Specimen Type: BLOOD SPECIMENOrdering Facility: [facility] Address:[address] [place], [place] [address]Performed By: #### 34967- 8 ####[facility] LABCLIA [id number] [place], [place] [address]PFG [Catalytic activity/Vol]92 U/TPneclg11-036AcwlkhvkzPremier Health Atrium Medical Center on above:Order Comment: Specimen Type: BLOOD SPECIMENOrdering Facility: [facility] Address:[address] [place], [place] [address]Performed By: #### 13380-1 ####[facility] LABCLIA [id number] [place], [place] [address]GSF [Catalytic activity/Vol]18 U/NXisrde64-95SviukctsgPremier Health Atrium Medical Center on above:Order Comment: Specimen Type: BLOOD SPECIMENOrdering Facility: [facility] Address:[address] [place], [place] [address]Performed By: #### 20995- 8 ####[facility] LABCLIA [id number] [place], [place] [address]Fymtk gap [Moles/Vol]8 mmol/LNormal8-15[facility] on above:Order Comment: Specimen Type: BLOOD SPECIMENOrdering Facility: [facility] Address:[address] [place], [place] [address]Performed By: #### 90552-4 ####[facility] LABCLIA [id number] [place], [place] [address]EEI [Catalytic activity/Vol]5 U/JOjk09-59TrpkvtyasPremier Health Atrium Medical Center on above:Order Comment: Specimen Type: BLOOD SPECIMENOrdering Facility: [facility] Address:[address] [place], [place] [address]Performed By: #### 06074-3 ####[facility] LABCLIA [id number] [place] [address] Bilirubin [Mass/Vol]0.6 mg/dLNormal0.2-1.3CUniversity Hospitals [facility] Center on above:Order Comment: Specimen Type: BLOOD SPECIMENOrdering Facility: [facility] Address:[address] [place], [place] [address]Performed By: #### 58344-0 ####[facility] LABCLIA [id number] [place], [place] [address]Pjqgsdw [Mass/Vol]9.2 mg/dLNormal8.5-10.2CUniversity Hospitals [facility] on above:Order Comment: Specimen Type: BLOOD SPECIMENOrdering Facility: [facility] Address:[address] [place], [place] [address]Performed By: #### 88575-5 ####[facility] LABCLIA [id number] [place], [place] [address]Spyhborg [Moles/Vol]101 mmol/XUfdfjr67-742IgldlqkvkPremier Health Atrium Medical Center on above: Order Comment: Specimen Type: BLOOD SPECIMENOrdering Facility: [facility] Address:[address] [place], [place] [address]Performed By: #### 04675- 8 ####[facility] LABCLIA [id number] [place], [place] [address]DP9 [Moles/Vol]29 mmol/GQhsifl73-95LvwzozhisPeoples Hospitalment on above:Order Comment: Specimen Type: BLOOD SPECIMENOrdering Facility: [facility] Address:[address] [place], [place] [address]Performed By: #### 59025-8 ####[facility] LABIA [id number] [place], [place] [address]Lyfaqodocl [Mass/Vol]1.46 mg/dL High0.73-1.22[facility] on above:Order Comment: Specimen Type: BLOOD SPECIMENOrdering Facility: [facility] Address:[address] [place], [place] [address]Performed By: #### 94641-9 ####[facility]ITALIA [id number] [place] [address] eGFRcr SerPlBld CKD-EPI 139600 mL/min/1.73m???Low>=60[facility] Comment on above:Order Comment: Specimen Type: BLOOD SPECIMENOrdering Facility: [facility] Address:[address] [place], [place] [address]Result Comment: Estimated Glomerular Filtration Rate (eGFR) is calculated using the 2020 CKD-EPI creatinine equation. This equation utilizes serum creatinine, sex, and age as parameters. The creatinine assay has traceable calibration to isotope dilution-mass spectrometry. Refer to KDIGO guidelines for clinical interpretation. In patients with unstable renal function, e.g. those with acute kidney injury, the eGFR may not accurately reflect actual GFR.Performed By: #### 02807-0 ####[facility] LABIA [id number] [place], [place] [address]Dubyhmd [Mass/Vol]116 mg/nFQmkj69-04UnbuhntbxPremier Health Atrium Medical Center on above:Order Comment: Specimen Type: BLOOD SPECIMENOrdering Facility: [facility] Address:[address] [place], [place] [address]Result Comment: The [place] [employer] (ADA) provides guidance for cutoff [...] Standards of Medical Care in Diabetes 2016, [place] [employer]. Diabetes Care. 2016.39(Suppl 1).Performed By: #### 02179-3 ####[facility] LABCLIA [id number] [place], [place] [address]Xxldczdxh [Moles/Vol]3.9 mmol/LNormal3.7-5.1CUniversity Hospitals [facility] Medical Center on above:Order Comment: Specimen Type: BLOOD SPECIMENOrdering Facility: [facility] Address:[address] [place], [place] [address]Performed By: #### 85064-5 ####[facility] LABIA [id number] [place], [place] [address]Obfjzex [Mass/Vol]7.4 g/dLNormal6.3-8.0[facility] on above:Order Comment: Specimen Type: BLOOD SPECIMENOrdering Facility: [facility] Address:[address] [place], [place] [address]Performed By: #### [id number]- [id number] ####[facility] LABCLIA [id number] [place], [place] [address]Blfbzu [Moles/Vol]138 mmol/EPmjetm340-021RvzaxpzyhPremier Health [facility] on above:Order Comment: Specimen Type: BLOOD SPECIMENOrdering Facility: [facility] Address:[address] [place], [place] [address]Performed By: #### [id number] ####[facility] LABIA [id number] [place], [place] [address]Ilfs nitrogen [Mass/Vol]56 mg/dLHigh9-24[facility] on above:Order Comment: Specimen Type: BLOOD SPECIMENOrdering Facility: [facility] Address:[address] [place], [place] [address]Performed By: #### 47990-5 ####[facility] LABCLIA [id number] [place] [address] Ferritin SerPl-mCncon 38-11-6821Dkfrcypa [Mass/Vol]71.9 ng/xRZmmxpk35.3-565.7 [facility] on above:Order Comment: Specimen Type: BLOOD SPECIMENOrdering Facility: [facility] Address:[address] [place], [place] [address]Performed By: #### 89391-4, 1825-9, 4-2, 6-4 ####[facility] LABCLIA [id number] [place] [address] [place] OF AMERICAGGT SerPl-cCncon 23-67-2563Jzwzm glutamyl transferase [Catalytic activity/Vol]123 U/TIypo47-86QtztvptvlPremier Health [facility] on above:Order Comment: Specimen Type: BLOOD SPECIMENOrdering Facility: [facility] Address:[address] [place], [place] [address]Performed By: #### 91818-7, 1825-9, 4-2, 6-4 ####[facility] LABCLIA [id number] [place] [address] [place] AMERICAHBV core Ab Ser Qlon 20-79-2705ZAD core Ab Ql (S) NegativeNormalNegativePrem[facility] on above:Order Comment: Specimen Type: BLOOD SPECIMENOrdering Facility: [facility] Address:[address] [place], [place] [address]Result Comment: No evidence of current or past infection with Hepatitis B virus. Should recent infection be suspected, repeat testing may be considered 3-4 weeks after this draw.Performed By: #### 17590-0, 71911-8, 5194-3 ####[facility] LABIA [id number], [place] [address] [place] HBV surface Ab Ql (S)on 21-27-5917IPM surface Ab Qn (S)<8.00NoCleveland Clinic [facility] on above:Order Comment: Specimen Type: BLOOD SPECIMENOrdering Facility: [facility] Address:[address] [place], [place] [address]Result Comment: <8 mIU/mL: No serological evidence of immunity to Hepatitis B Virus.>/= 8 to <12 mIU/mL: No serological evidence of immunity to Hepatitis B Virus.>/= 12 mIU/mL: Consistentwith serological evidence of immunity to Hepatitis B Virus.Performed By: #### 68274-3, 41290-6, 5194-3 ####[facility] LABIA [id number] STATES OF AMERICAHBV surface Ab Ser Qlon 02-03-0879RIO surface Ab Ql (S)NegativeNormGerman Hospital on above:Order Comment: Specimen Type: BLOOD SPECIMENOrdering Facility: [facility] Address:[address] [place] [address] Comment: No serological evidence of immunity to Hepatitis B Virus.Performed By: #### 48074-8, 27296-3, 5194-3 ####[facility] LABIA [id number] STATES OF [place] HBV surface Ag Ser Qlon 83-19-0249UMR surface Ag Ql (S)NegativeNormalNegative [facility] on above:Order Comment: Specimen Type: BLOOD SPECIMENOrdering Facility: [facility] Address:[address] [place], [place] [address]Performed By: #### 07378-3, 69931-8, 5194-3 ####[facility] LABIA [id number] VIL[place] [address] [place] OF AMERICAHCV Ab Ser Qlon 07-62-0423JCC Ab Ql (S)Negative NormalNegativePrem[facility] on above:Order Comment: Specimen Type: BLOOD SPECIMENOrdering Facility: [facility] Address:[address] [place], [place] [address]Result Comment: The result suggests no evidence of infection with Hepatitis C virus. Should recent infection be suspected, repeat testing may be considered 4-6 weeks after this draw.Performed By: #### 98375-7 ####[facility] LABCLIA [id number] [place] [address] [place] OF AMERICAIron and Iron binding capacity panelon 07-15-5505Yxao [Mass/Vol]63 ug/hLAifecg07-826EvkwirqfrPremier Health [facility] on above:Order Comment: Specimen Type: BLOOD SPECIMENOrdering Facility: [facility] Address:[address] [place], [place] [address]Performed By: #### 15956-6, 1829, 2323-2, 6-4 ####[facility] LABIA [id number] [place] [address] [place] AMERICAIron binding capacity [Mass/Vol]379 ug/qMMkjqub868-336 [facility] on above:Order Comment: Specimen Type: BLOOD SPECIMENOrdering Facility: [facility] Address:[address] [place], [place] [address]Performed By: #### 23673-5, 1829, 2323-2, 2276-4 ####[facility] LABIA [id number] [place] [id number] [place] OF AMERICAIron/TIBC [Molar ratio]16.6 % Fbhmon80.0-57.0[facility] on above:Order Comment: Specimen Type: BLOOD SPECIMENOrdering Facility: [facility] Address:[address] [place], [place] [address]Performed By: #### 66538-6, 182-9, 2323-2, 2276-4 ####[facility] LABCLIA [id number] [address]REETLIVER-KIDNEY MICROSOME ANTIBODY, IGGon 43-92-6744GXIGS-KIDNEY MICROSOMAL ABS<1:20Normal<1:20[facility] on above:Order Comment: Specimen Type: BLOOD SPECIMENOrdering Facility: [facility] Address:[address] [place], [place] [address]Result Comment: INTERPRETIVE INFORMATION: Dzexh-Piwryq-Excbfcnqe Abs, IgGLiver-Kidney Microsome IgGantibody (anti-LKM), as detected byindirect immunofluorescent antibody (IFA) techniques, may beobserved in patients with autoimmune hepatitis type 2 (AIH-2),AIH-2 associated with mqsorbziublbooisdlgqthoptods-hvbjyvshcir-zbdlvdolup dystrophy (APECED),viral hepatitis C or D, and some forms of drug-induced hepatitis.This IFA does not differentiate among the four types of LKMantibodies (LKM-1, LKM-2,LKM-3, and a fourth type that seuaxuagrnROP7L1 and CY antigens). Of these, anti-LKM-1 (dzhxvujxhfZ761IVN3) IgG antibodies are considered specific for AIH-2.This test was developed and its performance characteristicsdetermined by [facility]. It has not been cleared orapproved by the [place] Food and Drug Administration. This test wasperformed in a CLIA certified laboratory and is intended forclinical purposes.Performed By: [facility] [place] [address]Nhkdohthwp Director: Anne-Marie Correa MD, PhDCLIA Number: [id number] By: #### LKM ####[facility] [id number] [place], [place] [address]Shjvrjjylkqe Ab IF Ql (S)on 88-71-5322Lxzglnysrwox M2 Ab IA Qn (S)4.9 UnitsNormal<=20.0[facility] on above: Order Comment: Specimen Type: BLOOD SPECIMENOrdering Facility: [facility] Address:[address] [place], [place] [address]Performed By: #### 14243- 1, 87959-3 ####[facility] LABCLIA [id number] [place] Yanira [facility]ITALK [address]ETMitochondria M2 Ab Ql (S)NegativeNormalNegativeUc West Chester HospitalComment on above:Order Comment: Specimen Type: BLOOD SPECIMENOrdering Facility: [facility] Address:[address] [place], [place] [address]Result Comment: Anti- mitochondrial antibody test is used as an aid in diagnosis of primary biliary c holangitis. Clinical correlation is required.Performed By: #### 72027-7, 49354-9 ####[facility] LABIA [id number] [address] AVENUEHIGHLAND SPRINGS SURGICAL CENTERK [address]ETPT panel Coag (PPP)on 01-08-2025 INR Coag (PPP) [Relative time]1.1 {INR}Normal0.9-1.3CKindred Healthcare Comment on above:Order Comment: Specimen Type: BLOOD SPECIMENOrdering Facility: [facility] Address:[address] [place], [place] [address]Result Comment: Vitamin K Antagonist (VKA) Therapeutic Range: INR 2 to 3 (Target INR of 2.5)Note: For patients treated with VKA drugs, such as warfarin, the [employer] [employer] 2012 Guideline recommends [...] of 3).Camilla GH, et al. Chest 2012, 141:7S-47SNishsara RA, et al. [facility] 2017, 70: 252-289Performed By: #### 02413-3 ####[facility] LABIA [id number] [place] [address] [place] AMERICAPT Coag (PPP) [Time] 12.2 sNormal9.7-13.0[facility] on above:Order Comment: Specimen Type: BLOOD SPECIMENOrdering Facility: [facility] Address:[address] [place], [place] [address]Performed By: #### 13301-8 ####[facility] LABIA [id number] [place] [address] [place] THE CHRIST HOSPITALSmooth muscle Ab Ql (S)on 82-43-2699LGPWH SMOOTH MUSCLE IGG QUALITATIVENegativeNormalNegativePrem[facility] on above:Order Comment: Specimen Type: BLOOD SPECIMENOrdering Facility: [facility] Address:[address] [place], [place] [address]Performed By: #### 00624-9, 43504-2 ####[facility]IA [id number] [place] [address] [place] THE CHRIST HOSPITALACTIN SMOOTH MUSCLE IGG WPMWCJRXLLCI58 UnitsNormal<20[facility] on above:Order Comment: Specimen Type: BLOOD SPECIMENOrdering Facility: [facility] Address:[address] [place], [place] [address]Performed By: #### 22941-8, 86292-0 ####[facility]BUSIA [id number] [place] [id number] [place] AMERICAXR CHEST 2V FRONTAL/LATon 04-28-5785QU CHEST 2V FRONTAL/LAT NormalUc West Chester HospitalBasi metabolic 2000 panelon 43-17-7972Iqpnc gap [Moles/Vol]12 mmol/LNormal8-15[facility] on above:Order Comment: Specimen Type: BLOOD SPECIMENOrdering Facility: [facility] Address:[address] [place], [place] [address]Performed By: #### 24482- 2 ####[facility] LABCLIA [id number] [address] [place] [address] [place] AMERICACalcium [Mass/Vol]9.6 mg/dLNormal 8.5-10.2CUniversity Hospitals [facility] on above:Order Comment: Specimen Type: BLOOD SPECIMENOrdering Facility: [facility] Address:[address] [place], [place] [address]Performed By: #### 59063-0 ####[facility] LABCLIA [id number] [address] [address] [place] AMERICAChloride [Moles/Vol]98 mmol/GSdrlvv21-899UooynpofePremier Health [facility] Medical Center on above:Order Comment: Specimen Type: BLOOD SPECIMENOrdering Facility: [facility] Address:[address] [place], [place] [address]Performed By: #### 57862-6 ####[facility] LABCLIA [id number] [place] [address] [place] AMERICACO2 [Moles/Vol]26 mmol/DOpwsri70-61BsciwqquhPremier Health At[facility] Medical Center on above:Order Comment: Specimen Type: BLOOD SPECIMENOrdering Facility: [facility] Address:[address] [place], [place] [address]Performed By: #### 23534-6 ####[facility] LABIA [id number] [address] [address] [place] AMERICACreatinine [Mass/Vol] 1.60 mg/dLHigh0.73-1.22[facility] on above:Order Comment: Specimen Type: BLOOD SPECIMENOrdering Facility: [facility] Address:[address] [place], [place] [address]Performed By: #### 09429-0 ####[facility] LABCLIA [id number] [address] [address] [place] AMERICACreatinine and Glomerular filtration rate.predicted panel (S/P/Bld)45 mL/min/1.73m???Low>=60[facility] on above:Order Comment: Specimen Type: BLOOD SPECIMENOrdering Facility: [facility] Address:[address] [place], [place] [address]Result Comment: Estimated Glomerular Filtration Rate (eGFR) is calculated using the 2020 CKD-EPI creatinine equation. This equation utilizes serum creatinine, sex, and age as parameters. The creatinine assay has traceable calibration to isotope dilution-mass spectrometry. Refer to KDIGO guidelines for clinical interpretation. In patients with unstable renal function, e.g. those with acute kidney injury, the eGFR may not accurately reflect actual GFR.Performed By: #### 39676-8 ####[facility] LABSOUTHWESTERN [facility] [id number] [place] [address] [place] AMERICAGlucose [Mass/Vol]119 mg/gLApmr82-84RhonzacjjPrem[facility] Health [facility] on above:Order Comment: Specimen Type: BLOOD SPECIMENOrdering Facility: [facility] Address:[address] [place], [place] [address]Result Comment: The [employer] [employer] (ADA) provides guidance for cutoff [...] Standards of Medical Care in Diabetes 2016, [place] [employer]. Diabetes Care. 2016.39(Suppl 1).Performed By: #### 78130-1 ####[facility] [id number] [place] [id number] [place] AMERICAPotassium [Moles/Vol]4.3 mmol/LNormal3.7-5.1CKindred Healthcare Comment on above:Order Comment: Specimen Type: BLOOD SPECIMENOrdering Facility: [facility] Address:[address] [place] [address] Performed By: #### 79283-9 ####[facility] LABCLIA [id number] [place] [address] [place] Sodium [Moles/Vol]136 mmol/IDffzsx453-121VxbfqykubPremier Health Atrium Medical Center on above:Order Comment: Specimen Type: BLOOD SPECIMENOrdering Facility: [facility] Address:[address] [place], [place] [address]Performed By: #### 34837-2 ####[facility] LABIA [id number] [place] [address] [place] AMERICAUrea nitrogen [Mass/Vol]45 mg/dLHigh9-24[facility] on above:Order Comment: Specimen Type: BLOOD SPECIMENOrdering Facility: [facility] Address:[address] [place], [place] [address]Performed By: #### 47318- 2 ####[facility] LABCLIA [id number] [place] [address] [place] AMERICAPVR LEG ROCIO VAS LABon 12-16-2024 PVR LEG ROCIO VAS LABNormalCKindred HealthcareUS VENOUS INCOMPETENCY ROCIO VAS LABon 72-13-7298HI VENOUS INCOMPETENCY ROCIO VAS LABNormalCKindred HealthcareCNOVon 23-99-6995JSQIXkivznVbifywhib Clinic ClevelandCNPNon 11-23-2024 CNPNNormalUc West Chester HospitalUS ABD RIGHT UPPER QUADRANTon 26-29-1680IG ABD RIGHT UPPER QUADRANT* * *Final Report* [...] infiltrative diseases or in the post-prandial state. Sustainability Coach: ALONSO Transcribe Date/Time: Nov 26 2024 7:29A Dictated by : KRISTINA SALINAS MD This examination was interpreted and the report reviewed and electronically signed by: KRISTINA SALINAS MD on Nov 26 2024 7:35AM EST [id number] HealthUS ELASTOGRAPHY LIVERon 61-35-1241TO ELASTOGRAPHY LIVER* * *Final Report* * * [...] infiltrative diseases or in the post-prandial state. Sustainability Coach: ALONSO Transcribe Date/Time: Nov 26 2024 7:29A Dictated by : KRISTINA SALINAS MD This examination was interpreted and the report reviewed and electronically signed by: KRISTINA SALINAS MD on Nov 26 2024 7:35AM EST [id number] Memorial HospitalXR CHEST 2V FRONTAL/LATon 11-23-2024 XR CHEST 2V FRONTAL/LATNormSumma HealthXR Chest PA and Lateralon 71-45-4513IFSYEBPDFK: See result. Sustainability Coach: ALONSO Transcribe Date/Time: Nov 23 2024 1:39P [...] the left seventh rib. DIVISION OF RADIOLOGYProvider, [facility] [place] - 11/23/2024 * * *Final Report* * [...] left seventh rib. IMPRESSION IMPRESSION: See result. Sustainability Coach: PSCAc Transcribe Date/Time: Nov 23 2024 1:39P Dictated by : CRISTOBAL ROACH MD This examination was interpreted and the report reviewed and electronically signed by: CRISTOBAL ROACH MD on Nov 23 2024 1:42PM [facility]iology Study observation (narrative)[facility] Chest PA and LateralOrdered By: [facility] Provider on 12-88-0558Unknxwpfv ClinicCNOVon 79-09-1317AIPCHzdhqqKhyvjltei Clinic ClevelandCNOVon 73-19-0852YYMQBfyqav [facility] ClevelandOPERATIVE NOon 05-26-9855IDYUGOKTA NONormalOhiohealth Southeastern Medical Center Cle[facility] regional medical centerUS Chest limitedon 46-54-9934Qhpcrtxih ClinicRadiology Study observation (narrative)[facility] CenterXR CHEST 1V FRONTAL PORTon 74-00-0968YB CHEST 1V FRONTAL PORTNormSumma HealthXR CHEST 2V FRONTAL/LATon 34-34-4214CX CHEST 2V FRONTAL/LATNormalCKindred HealthcareXR Chest PA and Lateralon 65-54-4292OMWWHMSLJM: See result Sustainability Coach: ALONSO Transcribe Date/Time: Nov 19 2024 3:58P Dictated by : KYLER NICHOLAS MD This examination was interpreted and the report reviewed and electronically signed by: KYLER NICHOLAS MD on Nov 19 2024 4:01PM [facility] DIVISION OF RADIOLOGY* * *Final Report* * [...] of the left rib/ribs. DIVISION OF RADIOLOGYProvider, [facility] [place] - 11/19/2024 * * *Final Report* * [...] the left rib/ribs. IMPRESSION IMPRESSION: See result Sustainability Coach: PSCB Transcribe Date/Time: Nov 19 2024 3:58P Dictated by : KYLER NICHOLAS MD This examination was interpreted and the report reviewed and electronically signed by: KYLER NICHOLAS MD on Nov 19 2024 4:01PM EST [facility] CenterRadiology Study observation (narrative)[facility] CenterXR Chest PA and LateralOrdered By: [facility] Provider on 14-02-6650Mdbhunhfs ClinicCNPNon 74-19-7136BIVZYvilimKzqihplxn Clinic ClevelandCOPPER BLOODon 75-94-6275Zzrdec [Mass/Vol]159 ug/eRVgbh95-394HhoxbvjpmUc West Chester HospitalComment on above:Order Comment: Specimen Type: BLOOD SPECIMENOrdering Facility: [facility] Address:[address] [place], [place] [address]Qupvay Comment: This test was developed, and its performance characteristics determined by the [facility] Department of Pathology and Laboratory Medicine. It has not been cleared or approved bythe FDA. The [facility] Department of Pathology and Laboratory Medicine is regulated under CLIA as qualified to perform high- complexity testing. This test is used for clinical purposes. It should not be regarded as investigational or for research.Performed By: #### COPPER ####[facility] LABCLIA [id number] [address] [address] [place] AMERICAComprehensive metabolic 2000 panelon 10-18-2171Szloelr [Mass/Vol]4.1 g/dLNormal3.9-4.9CUniversity Hospitals [facility] Medical Center on above:Order Comment: Specimen Type: BLOOD SPECIMENOrdering Facility: [facility] Address:[address] [place], [place] [address]Performed By: #### 96984-6, ####[facility] LABCLIA [id number] [address] [address] [place] OF AMERICAALP [Catalytic activity/Vol]112 U/EJywgrw99-742VxmpnanedPremier Health [facility] Medical Center on above:Order Comment: Specimen Type: BLOOD SPECIMENOrdering Facility: [facility] Address:[address] [place], [place] [address]Performed By: #### 99161-7, ####[facility] LABCLIA [id number] [place] [address] [place] AMERICAALT [Catalytic activity/Vol]34 U/MJastqk15-15PdgsjmsyuUc West Chester Hospital Comment on above:Order Comment: Specimen Type: BLOOD SPECIMENOrdering Facility: [facility] Address:[address] [place], [place] [address] Performed By: #### 23855-2, ####[facility] LABCLIA [id number] [address] [address] [place] Anion gap [Moles/Vol]12 mmol/LNormal8-15[facility] on above:Order Comment: Specimen Type: BLOOD SPECIMENOrdering Facility: [facility] Address:[address] [place], [place] [address]Performed By: #### 98001-8, ####[facility] LABCLIA [id number] [address] [address] [place] [address] [place] AMERICAAST [Catalytic activity/Vol]47 U/WLatg30-26ShiswulixPremier Health Atrium Medical Center on above:Order Comment: Specimen Type: BLOOD SPECIMENOrdering Facility: [facility] Address:[address] [place], [place] [address]Performed By: #### 51409- 8, ####[facility] LABCLIA [id number] [place] [address], [place] [address] [place] AMERICABilirubin [Mass/Vol]0.8 mg/dLNormal0.2-1.3CUniversity Hospitals [facility] Medical Center on above:Order Comment: Specimen Type: BLOOD SPECIMENOrdering Facility: [facility] Address:[address] [place], [place] [address]Performed By: #### 16487-6, ####[facility] LABCLIA [id number] [facility] AVENUEHIGHLAND SPRINGS SURGICAL CENTERK [place] [id number] [place] AMERICACalcium [Mass/Vol]9.5 mg/dLNormal 8.5-10.2CUniversity Hospitals Cleveland Medical Center on above:Order Comment: Specimen Type: BLOOD SPECIMENOrdering Facility: [facility] Address:[address] [place], [place] [address]Performed By: #### 53910-7, ####[facility] LABCLIA [id number] [address] AVENUEDESK [place] [id number] [place] AMERICAChloride [Moles/Vol]97 mmol/PDyh96-250CnvtwoljzPremier Health Atrium Medical Center on above:Order Comment: Specimen Type: BLOOD SPECIMENOrdering Facility: [facility] Address:[address] [place], [place] [address]Performed By: #### 88359-4, ####[facility] LABCLIA [id number] [facility] AVENUEHIGHLAND SPRINGS SURGICAL CENTERK [place] [id number] [place] AMERICACO2 [Moles/Vol]30 mmol/AFqvbrv74-48KmvzuvcvwUc [facility] Hospital Comment on above:Order Comment: Specimen Type: BLOOD SPECIMENOrdering Facility: [facility] Address:[address] [place], [place] [address] Performed By: #### 66280-0, ####[facility] LABCLIA [id number] [place] [address] [place] Creatinine [Mass/Vol]1.38 mg/dLHigh0.73-1.22Uc [facility] Chester HospitalComment on above:Order Comment: Specimen Type: BLOOD SPECIMENOrdering Facility: [facility] Address:[address] [place], [place] [address]Performed By: #### 88074-7, ####[facility] LABIA [id number] [place] [id number] [place] THE CHRIST HOSPITALCreatinine and Glomerular filtration rate.predicted panel (S/P/Bld)54 mL/min/1.73m???Low>=60 [facility] HospitalComment on above:Order Comment: Specimen Type: BLOOD SPECIMENOrdering Facility: [facility] Address:[address] [place], [place] [address]Result Comment: Estimated Glomerular Filtration Rate (eGFR) is calculated using the 2020 CKD-EPI creatinine equation. This equation utilizes serum creatinine, sex, and age as parameters. The creatinine assay has traceable calibration to isotope dilution-mass spectrometry. Refer to KDIGO guidelines for clinical interpretation. In patients with unstable renal function, e.g. those with acute kidney injury, the eGFR may not accurately reflect actual GFR.Performed By: #### 01426-3, ####[facility] LABIA [id number] [address] [address] [place] AMERICAGlucose [Mass/Vol]104 mg/tPRvci54-30AyozkgkrlUc West Chester Hospital Comment on above:Order Comment: Specimen Type: BLOOD SPECIMENOrdering Facility: [facility] Address:[address] [place], [place] [address]Result Comment: The [employer] [place] [employer] (ADA) provides guidance for cutoff [...] Standards of Medical Care in Diabetes 2016, [place] [employer]. Diabetes Care. 2016.39(Suppl 1).Performed By: #### 43622-6, 40586-0 ####[facility] [facility] [id number] [place] [address] [place] OF AMERICAPotassium [Moles/Vol]3.8 mmol/LNormal3.7-5.1CUniversity [facility]als [facility] on above:Order Comment: Specimen Type: BLOOD SPECIMENOrdering Facility: [facility] Address:[address] [place], [place] [address]Performed By: #### 93861-6, ####[facility] [id number] [place] [address] [place] AMERICAProtein [Mass/Vol]7.3 g/dLNormal6.3-8.0[facility] on above:Order Comment: Specimen Type: BLOOD SPECIMENOrdering Facility: [facility] Address:[address] [place] [address] Performed By: #### 84877-9, ####[facility] [id number] [place] [id number] [place] Sodium [Moles/Vol]139 mmol/OEemzpy196-435SrxeeelazPremier Health Atrium Medical Center on above:Order Comment: Specimen Type: BLOOD SPECIMENOrdering Facility: [facility] Address:[address] [place], [place] [address]Performed By: #### 79521-8, 30196-2 ####[facility] LABCLIA [id number] [place] [address] [place] AMERICAUrea nitrogen [Mass/Vol]55 mg/dLHigh9-24[facility] on above:Order Comment: Specimen Type: BLOOD SPECIMENOrdering Facility: [facility] Address:[address] [place], [place] [address]Performed By: #### 17312- 8, 63580-7 ####[facility] LABCLIA [id number] [place] [address] [place] AMERICAHAV IgM Ser Qlon 79-25-3074BUW IgM Ql (S)NegativeNormalNegativeUc West Chester HospitalComcaro center on above:Order Comment: Specimen Type: BLOOD SPECIMENOrdering Facility: [facility] Address:[address] [place], [place] [address]Result Comment: No evidence of recent infection with Hepatitis A virus.Performed By: #### 37284-9, 5195-3, 10700-8 ####[facility] [id number], [place] [address] [place] HBV core IgM Ser Qlon 17-85-8274NWT core IgM Ql (S)NegativeNormalNegative [facility] on above:Order Comment: Specimen Type: BLOOD SPECIMENOrdering Facility: [facility] Address:[address] [place], [place] [address]Result Comment: No evidence of recent infection with Hepatitis B virus. Should recent infection be suspected, repeat testing may be considered 3-4 weeks after this draw.Performed By: #### 15961-7, 5195-3, 71295-0 ####[facility] LABCLIA [id number] [place] [address] [place] OF AMERICAHBV surface Ag Ser Qlon 24-75-2074VST surface Ag Ql (S)NegativeNormalNegativeUc [facility] Comment on above:Order Comment: Specimen Type: BLOOD SPECIMENOrdering Facility: [facility] Address:[address] [place] [address] Performed By: #### 93056-0, 5195-3, 26665-6 ####[facility] LABCLIA [id number] [address] [place] AMERICAHCV Ab Ser Qlon 84-74-9805RUC Ab Ql (S)NegativeNormalNegativePrem[facility] on above:Order Comment: Specimen Type: BLOOD SPECIMENOrdering Facility: [facility] Address:[address] [place], [place] [address]Result Comment: The result suggests no evidence of infection with Hepatitis C virus. Should recent infection be suspected, repeat testing may be considered 4-6 weeks after this draw.Performed By: #### 74213-7 ####[facility] LABCLIA [id number] [place] [address] [place] AMERICAHCV RNA BRYN+probe Qnon 11-17-2024 HCV RNA BRYN+probe QlNot detectedNormalNot detectedUc [facility] Comment on above:Order Comment: Specimen Type: BLOOD SPECIMENOrdering Facility: [facility] Address:[address] [place] [address] Performed By: #### 63223-2 ####[facility] LABCL[facility] [id number] [place] [address] [place] Iron and Iron binding capacity panelon 12-52-6240Frvc [Mass/Vol]72 ug/dLNormal 41-186[facility] on above:Order Comment: Specimen Type: BLOOD SPECIMENOrdering Facility: [facility] Address:[address] [place], [place] [address]Performed By: #### 65635-1 ####[facility] LABCLIA [id number] [place] [address] [place] AMERICAIron binding capacity [Mass/Vol]321 ug/eZFsakky792-652AxmdnfvcqPrem[facility] Health [facility] on above:Order Comment: Specimen Type: BLOOD SPECIMENOrdering Facility: [facility] Address:[address] [place], [place] [address]Performed By: #### 93525-3 ####[facility] [id number] [place] [address] [place] THE CHRIST HOSPITALIron/TIBC [Molar ratio]22.4 %Hauhpc37.0-57.0[facility] Comment on above:Order Comment: Specimen Type: BLOOD SPECIMENOrdering Facility: [facility] Address:[address] [place] [address] Performed By: #### 44621-8 ####[facility] [id number] [place] [address] [place] Magnesium SerPl-mCncon 08-44-0231Sifabhjcw [Mass/Vol]2.3 mg/dLNormal1.7-2.3 [facility] on above:Order Comment: Specimen Type: BLOOD SPECIMENOrdering Facility: [facility] Address:[address] [place], [place] [address]Performed By: #### 91474-9, 50757-6 ####[facility] [id number] [address] STATES OF THE CHRIST HOSPITALCB W Auto Differential panel (Bld)on 73-06-1894Fyddvswhp (Bld) [#/Vol]10*3/uLNormal<0.11CUniversity [facility] on above:Order Comment: Specimen Type: BLOOD SPECIMENOrdering Facility: [facility] Address:[address] [place], [place] [address]Performed By: #### 81989- 8 ####[facility] [id number] [place] [address] [place] AMERICABasophils/100 WBC (Bld)0.2 % NormalPremier Health Atrium Medical Center on above:Order Comment: Specimen Type: BLOOD SPECIMENOrdering Facility: [facility] Address:[address] [place], [place] [address]Performed By: #### 80339-4 ####[facility] LABCLIA [id number] [place] [address] [place] AMERICADifferential cell count method Nom (Bld)AutoNormalCUniversity [facility]als [facility] on above:Order Comment: Specimen Type: BLOOD SPECIMENOrdering Facility: [facility] Address:[address] [place], [place] [address]Performed By: #### 55910-6 ####[facility] LABCL[facility] [id number] [place] [address] [place] AMERICAEosinophils (Bld) [#/Vol]10*3/uLNormal<0.46[facility] Comment on above:Order Comment: Specimen Type: BLOOD SPECIMENOrdering Facility: [facility] Address:[address] [place] [address] Performed By: #### 91759-6 ####[facility] [id number] [place] [address] [place] Eosinophils/100 WBC (Bld)0.0 %NormalPremier Health At[facility] on above: Order Comment: Specimen Type: BLOOD SPECIMENOrdering Facility: [facility] Address:[address] [place], [place] [address]Performed By: #### 77926- 8 ####[facility] LABCL[facility] [id number] [place] [address] [place] AMERICAErythrocyte distribution width (RBC) [Ratio]16.6 %High11.5-15.0[facility] on above:Order Comment: Specimen Type: BLOOD SPECIMENOrdering Facility: [facility] Address:[address] [place], [place] [address]Performed By: #### 21863- 8 ####[facility] LABCLIA [id number] [place] [address] [place] AMERICAHematocrit (Bld) [Volume fraction]37.1 %Low39.0-51.0[facility] on above:Order Comment: Specimen Type: BLOOD SPECIMENOrdering Facility: [facility] Address:[address] [place], [place] [address]Performed By: #### 74061- 8 ####[facility] [id number] [place] [address] [place] AMERICAHemoglobin (Bld) [Mass/Vol]12.3 g/dLLow13.0-17.0[facility] on above:Order Comment: Specimen Type: BLOOD SPECIMENOrdering Facility: [facility] Address:[address] [place], [place] [address]Performed By: #### 94826-2 ####[facility] [id number] [place] [address] [place] AMERICAImmature granulocytes (Bld) [#/Vol]0.16 10*3/uLHigh<0.10[facility] on above:Order Comment: Specimen Type: BLOOD SPECIMENOrdering Facility: [facility] Address:[address] [place], [place] [address]Performed By: #### 36478- 8 ####[facility] [id number] [place] [address] [place] AMERICAImmature granulocytes/100 WBC (Bld)1.8 %NormalPremier Health [facility] on above:Order Comment: Specimen Type: BLOOD SPECIMENOrdering Facility: [facility] Address:[address] [place], [place] [address]Performed By: #### 63469-5 ####[facility] [id number] [place] [address] [place] AMERICALymphocytes (Bld) [#/Vol]0.91 10*3/uLLow1.00-4.00[facility] on above:Order Comment: Specimen Type: BLOOD SPECIMENOrdering Facility: [facility] Address:[address] [place], [place] [address]Performed By: #### 80830-6 ####[facility] [id number] [place] [address] [place] AMERICALymphocytes/100 WBC (Bld)10.4 % NormalPremier Health Atrium Medical Center on above:Order Comment: Specimen Type: BLOOD SPECIMENOrdering Facility: [facility] Address:[address] [place], [place] [address]Performed By: #### 10617-3 ####[facility] [id number] [place] [address] [place] AMERICAMCH (RBC) [Entitic mass]32.2 uuOvimmw53.0-34.0[facility] on above:Order Comment: Specimen Type: BLOOD SPECIMENOrdering Facility: [facility] Address:[address] [place], [place] [address]Performed By: #### 65119-2 ####[facility] [id number] [place] [address] [place] MCHC (RBC) [Mass/Vol]33.2 g/kDUnxbsp82.5-36.0[facility] on above:Order Comment: Specimen Type: BLOOD SPECIMENOrdering Facility: [facility] Address:[address] [place] [address] Performed By: #### 40995-9 ####[facility] LABSOUTHWE[facility] [id number] [place] [id number] [place] MCV (RBC) [Entitic vol]97.1 lWCgxdgz09.0-100.0[facility] on above:Order Comment: Specimen Type: BLOOD SPECIMENOrdering Facility: [facility] Address:[address] [place] [address] Performed By: #### 16195-4 ####[facility] LABCLIA [id number] [place] [address] [place] Monocytes (Bld) [#/Vol]0.67 10*3/uLNormal<0.87[facility] on above:Order Comment: Specimen Type: BLOOD SPECIMENOrdering Facility: [facility] Address:[address] [place] [address] Performed By: #### 87133-1 ####[facility] LABCLIA [id number] [address], [place] [address] [place] Monocytes/100 WBC (Bld)7.6 %NormalPremier Health Atrium [facility] Center on above: Order Comment: Specimen Type: BLOOD SPECIMENOrdering Facility: [facility] Address:[address] [place], [place] [address]Performed By: #### 55087- 8 ####[facility] [id number] [place] [address] [place] AMERICANeutrophils (Bld) [#/Vol]7.03 10*3/uLNormal1.45-7.50[facility] on above:Order Comment: Specimen Type: BLOOD SPECIMENOrdering Facility: [facility] Address:[address] [place], [place] [address]Performed By: #### 28790-9 ####[facility] [id number] [place] [address] [place] AMERICANeutrophils/100 WBC (Bld)80.0 % NormalPremier Health Atrium Medical Center on above:Order Comment: Specimen Type: BLOOD SPECIMENOrdering Facility: [facility] Address:[address] [place], [place] [address]Performed By: #### 13264-4 ####[facility] LABCLIA [id number] [address], [place] [address] [place] AMERICANucleated RBC (Bld) [#/Vol]10*3/uLNormal<0.01[facility] on above:Order Comment: Specimen Type: BLOOD SPECIMENOrdering Facility: [facility] Address:[address] [place], [place] [address]Performed By: #### 42605-9 ####[facility] [id number] [place] [address] [place] Nucleated RBC/100 WBC (Bld) [Ratio]0.0 /100 WBCNormalCKindred Healthcare Comment on above:Order Comment: Specimen Type: BLOOD SPECIMENOrdering Facility: [facility] Address:[address] [place] [address] Performed By: #### 36901-6 ####[facility] [id number] [place] [address] [place] Platelet mean volume (Bld) [Entitic vol]10.0 fLNormal9.0-12.7CUniversity [facility]als [facility] on above:Order Comment: Specimen Type: BLOOD SPECIMENOrdering Facility: [facility] Address:[address] [place], [place] [address]Performed By: #### 28546-8 ####[facility] [id number] [place] [address] [place] Platelets (Bld) [#/Vol]189 10*3/nXKcsqzq509-833NtgxnhvqtPremier Health [facility] on above:Order Comment: Specimen Type: BLOOD SPECIMENOrdering Facility: [facility] Address:[address] [place] [address] Performed By: #### 45962-6 ####[facility] [id number] [place] [address] [place] RBC (Bld) [#/Vol]3.82 10*6/uLLow4.20-6.00[facility] on above:Order Comment: Specimen Type: BLOOD SPECIMENOrdering Facility: [facility] Address:[address] [place], [place] [address]Performed By: #### 35607-7 ####[facility] [id number] [place] [address] [place] AMERICAWBC (Bld) [#/Vol]8.79 10*3/uLNormal3.70-11.00[facility] HospitalComcaro center on above:Order Comment: Specimen Type: BLOOD SPECIMENOrdering Facility: [facility] Address:[address] [place], [place] [address]Performed By: #### 15682-2 ####[facility] [id number] [place] [address] [facility] AMERICAComprehensive metabolic 2000 panelon 70-76-7195Plyqwqf [Mass/Vol]3.8 g/dLLow3.9-4.9CKindred Healthcare Comment on above:Order Comment: Specimen Type: BLOOD SPECIMENOrdering Facility: [facility] Address:[address] [place] [address] Performed By: #### 57482-9, 32096-7, [id number], 01532-7 ####[facility] [id number] [address] STATES OF AMERICAALP [Catalytic activity/Vol]108 U/GDrqugt28-473EtrrsphkdUc West Chester HospitalComcaro center on above:Order Comment: Specimen Type: BLOOD SPECIMENOrdering Facility: [facility] Address:[address] [place], [place] [address]Performed By: #### 60497-3, 73226-0, [id number], 86414-1 ####[facility] [id number] [address] OF AMERICAALT [Catalytic activity/Vol]40 U/RCutngz64-97KvsbuzpobPremier Health [facility] on above:Order Comment: Specimen Type: BLOOD SPECIMENOrdering Facility: [facility] Address:[address] [place], [place] [address]Performed By: #### 45524-8, 54472-2, [id number], 11549-6 ####[facility] LABCLIA [id number] [place] [address] [place] AMERICAAnion gap [Moles/Vol]15 mmol/L Normal8-15[facility] on above:Order Comment: Specimen Type: BLOOD SPECIMENOrdering Facility: [facility] Address:[address] [place], [place] [address]Performed By: #### 32208-5, 93785-4, [id number], 40023-5 ####[facility] LABCLIA [id number] [place] [address] [place] AMERICAAST [Catalytic activity/Vol]46 U/VSmzx49-20ThqlipaavPremier Health [facility] Center on above:Order Comment: Specimen Type: BLOOD SPECIMENOrdering Facility: [facility] Address:[address] [place], [place] [address]Performed By: #### 03155- 9, 67457-0, [id number], 07740-6 ####[facility] LABCLIA [id number] [place] [address] [place] Bilirubin [Mass/Vol]0.7 mg/dLNormal0.2-1.3CUniversity [facility]als [facility] on above:Order Comment: Specimen Type: BLOOD SPECIMENOrdering Facility: [facility] Address:[address] [place], [place] [address]Performed By: #### 93208-8, 51723-7, [id number], 20018-3 ####[facility] LABCLIA [id number] [place] [address] [place] Calcium [Mass/Vol]8.8 mg/dLNormal8.5-10.2CUniversity [facility]als [facility] on above:Order Comment: Specimen Type: BLOOD SPECIMENOrdering Facility: [facility] Address:[address] [place], [place] [address]Performed By: #### 39735-6, 00995-2, PPP7595, 08757-7 ####[facility] LABCLIA [id number] [address] [address] [place] Chloride [Moles/Vol]103 mmol/IMtcmbd53-015CfzolrxmzPremier Health Atrium [facility] Center on above:Order Comment: Specimen Type: BLOOD SPECIMENOrdering Facility: [facility] Address:[address] [place], [place] [address]Performed By: #### 94312-8, 68402-6, [id number], 53797-1 ####[facility] [id number] [address] [address] [place] CO2 [Moles/Vol]23 mmol/QJynclt19-07BtyezfoobPremier Health [facility] Center on above: Order Comment: Specimen Type: BLOOD SPECIMENOrdering Facility: [facility] Address:[address] [place], [place] [address]Performed By: #### 94404- 9, 63013-2, TMC1413, 79774-7 ####[facility] LABCLIA [id number] [place] [address] [place] Creatinine [Mass/Vol]1.12 mg/dLNormal0.73-1.22[facility] on above:Order Comment: Specimen Type: BLOOD SPECIMENOrdering Facility: [facility] Address:[address] [place] [address] Performed By: #### 67556-6, 10615-2, [id number], 60173-3 ####[facility] [id number] [place] [address] [place] AMERICACreatinine and Glomerular filtration rate.predicted panel (S/P/Bld)69 mL/min/1.73m???Normal>=60[facility] on above: Order Comment: Specimen Type: BLOOD SPECIMENOrdering Facility: [facility] Address:[address] [place], [place] [address]Result Comment: Estimated Glomerular Filtration Rate (eGFR) is [...] not accurately reflect actual GFR.Performed By: #### 15203-3, 14610-0, [id number], 86235-4 ####[facility] [id number] [address] [address] [place] AMERICAGlucose [Mass/Vol]115 mg/eELpxh85-96HtwdimczuPremier Health Atrium Medical Center on above:Order Comment: Specimen Type: BLOOD SPECIMENOrdering Facility: [facility] Address:[address] [place], [place] [address]Result Comment: The [place] [employer] (ADA) provides guidance for cutoff [...] Standards of Medical Care in Diabetes 2016, [place] [employer]. Diabetes Care. 2016.39(Suppl 1). Performed By: #### 47320-7, 55117-7, CSR1386, 09725-6 ####[facility] LABCLIA [id number] [address] [address] [place] AMERICAPotassium [Moles/Vol]3.3 mmol/LLow3.7-5.1CUniversity Hospitals [facility] on above:Order Comment: Specimen Type: BLOOD SPECIMENOrdering Facility: [facility] Address:[address] [place] [address]Performed By: #### 28564-2, 00006-5, [id number], 68104-0 ####[facility] [id number] [address] [address] [place] AMERICAProtein [Mass/Vol]6.7 g/dLNormal6.3-8.0[facility] on above:Order Comment: Specimen Type: BLOOD SPECIMENOrdering Facility: [facility] Address:[address] [place], [place] [address]Performed By: #### 61543-9, 71733-9, [id number], 55489-3 ####[facility] [id number] [place] [address] [place] AMERICASodium [Moles/Vol]141 mmol/TFrmgbv691-122WqxpamolxPremier Health Atrium [facility] Center on above:Order Comment: Specimen Type: BLOOD SPECIMENOrdering Facility: [facility] Address:[address] [place], [place] [address]Performed By: #### 37707-8, 96060-3, UHS7318, 03627-3 ####[facility] [id number] [place] [address] [place] AMERICAUrea nitrogen [Mass/Vol]37 mg/dL High9-24[facility] on above:Order Comment: Specimen Type: BLOOD SPECIMENOrdering Facility: [facility] Address:[address] [place], [place] [address]Performed By: #### 33797-8, 86364-5, ZDX7715, 72752-2 ####[facility] [id number] [place] [address] [place] AMERICAECG COMPLETEon 54-25-4614CPN COMPLETENormalCKindred HealthcareED NOTEon 18-31-4491OC NOTEHNO ID: [id number] Author: EDWIN MANSFIELD RN Service: ? Author Type: Registered Nurse Type: ED Notes Filed: 11/12/2024 19:04 Note Text: Pt. D/c as ordered Pt .verbalized understanding of all d/c instructions. No further needs noted at this time.NormalParkwood HospitalvelandED NOTE NormalParkwood Hospitalveland PROGRESS NOTE (PROVIDER)on 12-74-3968EP PROGRESS NOTE (PROVIDER)NormalCleveland Clinic [facility] PROV NOTEon 77-94-0754WO PROV NOTENormalCOhioHealth Shelby Hospital Triage Noteon 39-90-1888YV Triage NoteNormalCKindred HealthcareHIGH SENSITIVITY TROPONIN T (INITIAL)on 22-49-7591Fjjkcdnc T.cardiac High sensitivity method [Mass/Vol]18 ng/LHigh<12[facility] on above:Order Comment: Specimen Type: BLOOD SPECIMENOrdering Facility: [facility] Address:[address] [place], [place] [address]Performed By: #### 36320- 9, 48433-6, [id number], 96544-6 ####[facility] LABCLIA [id number] [address] SENSITIVITY TROPONIN T (SECOND)on 53-99-2942Crekjaze T.cardiac High sensitivity method [Mass/Vol]17 ng/LHigh<12[facility] on above:Order Comment: Specimen Type: BLOOD SPECIMENOrdering Facility: [facility] Address:[address] [place], [place] [address]Performed By: #### [id number] ####[facility] LABIA [id number] [address] STREETHIGH SENSITIVITY TROPONIN T (THIRD) 3 HRS AFTER INITIALon [id number] T.cardiac High sensitivity method [Mass/Vol]16 ng/LHigh<12[facility] on above:Order Comment: Specimen Type: BLOOD SPECIMENOrdering Facility: [facility] Address:[address] [place], [place] [address]Performed By: #### [id number] ####[facility] LABCLIA [id number] [place] [id number] [place] OF AMERICAMagnesium SerPl-mCncon [id number] [Mass/Vol]2.1 mg/dLNormal1.7-2.3CKindred Healthcare Comment on above:Order Comment: Specimen Type: BLOOD SPECIMENOrdering Facility: [facility] Address:[address] [place] [address] Performed By: #### 87300-3, 64016-6, [id number], 46169-7 ####[facility] LABCLIA [id number] [place] [address] [place] OF AMERICANT-proBNP SerPl-mCncon 97-54-0857Upsjrbwblms peptide.B prohormone N-Terminal [Mass/Vol]465 pg/mLHigh<125[facility] Comment on above:Order Comment: Specimen Type: BLOOD SPECIMENOrdering Facility: [facility] Address:[address] [place] [address] Performed By: #### 97924-7, 74500-9, [id number], 35884-0 ####[facility] LABCLIA [id number] [place] [address] [place] OF AMERICAUS DVT LOWER BILon 01-32-4346OY DVT LOWER BILNormalCKindred HealthcareXR CHEST 2V FRONTAL/LATon 16-79-4625ZN CHEST 2V FRONTAL/LAT NormalUc West [facility] HospitalBasic metabolic 2000 panelon 10-88-7735Ztcmy gap [Moles/Vol]13 mmol/LNormal8-15[facility] HospitalComment on above:Order Comment: Specimen Type: BLOOD SPECIMENOrdering Facility: [facility] Address:[address] [place], [place] [address]Performed By: #### 05117- 9, 14314-6 ####[facility] LABCLIA [id number] [place], [place] [address]Brhkjug [Mass/Vol]9.0 mg/dLNormal8.5-10.2CKindred HealthcareComment on above:Order Comment: Specimen Type: BLOOD SPECIMENOrdering Facility: [facility] Address:[address] [place], [place] [address]Performed By: #### 92961-2, 80898-8 ####[facility] LABCLIA [id number] [place], [place] [address]Mbbbauoj [Moles/Vol]100 mmol/FBrgbqa97-764DpooneizsPremier Health Atrium Medical Center on above: Order Comment: Specimen Type: BLOOD SPECIMENOrdering Facility: [facility] Address:[address] [place], [place] [address]Performed By: #### 84004- 9, 33251-7 ####[facility] LABCLIA [id number] [place], [place] [address]AT4 [Moles/Vol]25 mmol/BButrzc63-27NsbdarodnPremier Health Atrium Medical Center on above:Order Comment: Specimen Type: BLOOD SPECIMENOrdering Facility: [facility] Address:[address] [place], [place] [address]Performed By: #### 64205-8, 27644-6 ####[facility] LABCLIA [id number] [place], [place] [address]Ukbeqxxeem [Mass/Vol] 1.08 mg/dLNormal0.73-1.22[facility] on above:Order Comment: Specimen Type: BLOOD SPECIMENOrdering Facility: [facility] Address:[address] [place], [place] [address]Performed By: #### 68305- 9, 36303-3 ####[facility] LABCLIA [id number] [place], [place] [address]Lgtzhdjlsn and Glomerular filtration rate.predicted panel (S/P/Bld)72 mL/min/1.73m???Normal>=60[facility] on above:Order Comment: Specimen Type: BLOOD SPECIMENOrdering Facility: [facility] Address:[address] [place], [place] [address]Result Comment: Estimated Glomerular Filtration Rate (eGFR) is [...] not accurately reflect actual GFR.Performed By: #### 59670-7, 95110-7 ####[facility] LABCLIA [id number] [place], [place] [address]Moqgphw [Mass/Vol]140 mg/uFKhby64-30MrjmvbuifPremier Health Atrium Medical Center on above:Order Comment: Specimen Type: BLOOD SPECIMENOrdering Facility: [facility] Address:[address] [place] [address]Gcxxkr Comment: The [place] [employer] (ADA) provides guidance for cutoff [...] Standards of Medical Care in Diabetes 2016, [place] [employer]. Diabetes Care. 2016.39(Suppl 1).Performed By: #### 40752- 9, 95364-4 ####[facility] LABCLIA [id number] [place], [place] [address]Jawtajzox [Moles/Vol]4.0 mmol/LNormal3.7-5.1 [facility] on above:Order Comment: Specimen Type: BLOOD SPECIMENOrdering Facility: [facility] Address:[address] [place], [place] [address]Gshoyaptu By: #### 69393-5, 88219-5 ####[facility] LABCLIA [id number] [place], [place] [address]Vwfhif [Moles/Vol]138 mmol/PKgmgan286-552XjoyrlnciPremier Health Atrium Medical Center on above: Order Comment: Specimen Type: BLOOD SPECIMENOrdering Facility: [facility] Address:[address] [place], [place] [address]Performed By: #### 63745- 9, 04204-9 ####[facility] LABCLIA [id number] [place], [place] [address]Nkhy nitrogen [Mass/Vol]39 mg/dLHigh9-24[facility] on above:Order Comment: Specimen Type: BLOOD SPECIMENOrdering Facility: [facility] Address:[address] [place], [place] [address]Performed By: #### 88834-8, 48338-6 ####[facility] LABIA [id number] [place], [place] [address]NLK panel Auto (Bld)on 32-72-8987Tkenewqtizz distribution width (RBC) [Ratio]16.2 % High11.5-15.0[facility] on above:Order Comment: Specimen Type: BLOOD SPECIMENOrdering Facility: [facility] Address:[address] [place], [place] [address]Performed By: #### 37522-4 ####[facility] LABIA [id number] [place] [address] Hematocrit (Bld) [Volume fraction]38.3 %Low39.0-51.0[facility] Comment on above:Order Comment: Specimen Type: BLOOD SPECIMENOrdering Facility: [facility] Address:[address] [place], [place] [address] Performed By: #### 00059-7 ####[facility] LABIA [id number] [place], [place] [address]Fvvrdhgjmv (Bld) [Mass/Vol]12.4 g/dLLow13.0-17.0[facility] on above:Order Comment: Specimen Type: BLOOD SPECIMENOrdering Facility: [facility] Address:[address] [place], [place] [address]Performed By: #### 17385-6 ####[facility] LABCLIA [id number] [place], [place] [address]BQF (RBC) [Entitic mass]31.9 kqKkoltf37.0-34.0[facility] on above:Order Comment: Specimen Type: BLOOD SPECIMENOrdering Facility: [facility] Address:[address] [place], [place] [address]Performed By: #### 75630-4 ####[facility] LABCLIA [id number] [place], [place] [address]EYKX (RBC) [Mass/Vol]32.4 g/vABssdlb16.5-36.0[facility] on above: Order Comment: Specimen Type: BLOOD SPECIMENOrdering Facility: [facility] Address:[address] [place], [place] [address]Performed By: #### 38110- 2 ####[facility] LABCLIA [id number] [place], [place] [address]OLB (RBC) [Entitic vol]98.5 gCQyotom82.0-100.0[facility] on above:Order Comment: Specimen Type: BLOOD SPECIMENOrdering Facility: [facility] Address:[address] [place], [place] [address]Performed By: #### 09903-5 ####[facility] LABCLIA [id number] [place], [place] [address]Hskxwescs RBC (Bld) [#/Vol]10*3/uLNormal<0.01[facility] on above:Order Comment: Specimen Type: BLOOD SPECIMENOrdering Facility: [facility] Address:[address] [place], [place] [address]Performed By: #### 61996- 2 ####[facility] LABCLIA [id number] [place], [place] [address]Lwarpcyv mean volume (Bld) [Entitic vol]9.8 fLNormal 9.0-12.7CUniversity Hospitals [facility] on above:Order Comment: Specimen Type: BLOOD SPECIMENOrdering Facility: [facility] Address:[address] [place], [place] [address]Performed By: #### 97697-3 ####[facility] LABCLIA [id number] [place], [place] [address]Qaezvmpua (Bld) [#/Vol]150 10*3/sYBevhpz122-342MqiupdplePremier Health Atrium Medical Center on above: Order Comment: Specimen Type: BLOOD SPECIMENOrdering Facility: [facility] Address:[address] [place], [place] [address]Performed By: #### 39401- 2 ####[facility] LABCLIA [id number] [place], [place] [address]RKV (Bld) [#/Vol]3.89 10*6/uLLow4.20-6.00[facility] on above:Order Comment: Specimen Type: BLOOD SPECIMENOrdering Facility: [facility] Address:[address] [place], [place] [address]Performed By: #### 87779-3 ####[facility] LABIA [id number] [place], [place] [address]ZFQ (Bld) [#/Vol]8.65 10*3/uL Normal3.70-11.00[facility] on above:Order Comment: Specimen Type: BLOOD SPECIMENOrdering Facility: [facility] Address:[address] [place], [place] [address]Performed By: #### 98264-3 ####[facility] LABIA [id number] [place], [place] [address]Zcblqohrm SerPl-ncon 31-06-0847Nppfjpbkp [Mass/Vol]2.4 mg/dLHigh1.7-2.3[facility] ClevelandComment on above:Order Comment: Specimen Type: BLOOD SPECIMENOrdering Facility: [facility] Address:[address] [place] [place], [place] [address]Bbvpupkiz By: #### 62906-8, 72442-3 ####[facility] LABCLIA [id number] [place], [place] [address]LXVUpy 42-19-4535IPLQMexhozqpw (AVXRCT) SAV RAYMUNDO ([id number]) 1950 M Date Time Provider Department 11/04/24 [...] ask any questions. Thank you Xiomara Ly APRN.CURT 11/07/2024 11:17 PM Signed Reviewed notification. No further action needed at this time. Xiomara Ly APRN.[employer] Allergies As of Date: 11/04/2024 Noted Allergy [...] tablet by mouth once daily. - calcium ylv-vvw-L9-Zn-epic kaleidoscope analyst-kian 250 mg-40 mg- 125 unit-3.75mg tab Take [...] 10/15/2024 Encounter Status:Closed by DRAGAN LOPEZ on 11/04/24[facility] ENTEROGRAPHY W IVCONon 31-59-4919OL ENTEROGRAPHY W IVCON* * *Final Report* * * DATE OF EXAM: Nov 04 2024 3:04PM [facility] 0545 - CT ENTEROGRAPHY W [...] WITH RIGHT PLEURAL CATHETER. SMALL HIATAL HERNIA. Sustainability Coach: ALONSO Transcribe Date/Time: Nov 04 2024 3:57P Dictated by : IZABELA LAMBERT MD This examination was interpreted and the report reviewed and electronically signed by: IZABELA LAMBERT MD on Nov 04 2024 5:14PM EST [id number] [facility] PROn 16-47-6649IDKSYBN PROG HNO ID: [id number] Author: COLBY VAZQUEZ RN Service: Radiology Author [...] Raymundo DATE: November 04, 2024 TIME: 1:45 [facility] ID: [id number] Author: COLBY VAZQUEZ, RN Service: Radiology Author Type: Registered Nurse [...] REFERRAL (RECOMMENDATION): None Electronically Signed By: Colby Zhao [facility], FECAL QUALon 54-62-0782UZE, FECAL - NEUTRALNormalNormalNormalCUniversity Hospitals [facility] on above:Order Comment: Specimen Type: STOOL SPECIMENOrdering Facility: [facility] Address:[address] [place], [place] [address]Performed By: #### FFATQL ####[facility]IGUEL ANGELBARNEY CHILDREN'S MEDICAL CENTERHELIO [id number] [place], [place] [address]BLW, FECAL - SPLITNormalNormalNormalCUniversity Hospitals [facility] on above:Order Comment: Specimen Type: STOOL SPECIMENOrdering Facility: [facility] Address:[address] [place], [place] [address]Result Comment: INTERPRETIVE INFORMATION: Fecal Fat QualitativeNeutral fats include the monoglycerides, diglycerides, andtriglycerides while split fats are the free fatty acidsthat are liberated fromthem. Impaired synthesis orsecretion of pancreatic enzymes or bile may cause anincrease in neutral fats while an increase in split fatssuggests impaired absorption of nutrients.Performed By: [address] [place], [place] [address]Tzzleieyqw Director: Anne-Marie Correa MD, PhDCLIANumber: [id number] By: #### FFATQL ####[facility]IESCLIA [id number] [place] [address] Amylase SerPl-cCncon 92-71-0478Wlvbhsn [Catalytic activity/Vol]70 U/LNormal 30-104Avon HospitalComment on above:Order Comment: Specimen Type: BLOOD SPECIMEN [facility] Address: [address] [place], [place] [address]Performed By: #### [id number], [id number] #### [facility] LAB CLIA [id number] [address] [place] [address] [place] AMERICACNPNon 24-57-6251GHWBNnanmk [facility] HospitalIGG SUBCLASS 1,2,3,4on 69-69-5359VcU subclass 1 (S) [Mass/Vol]576.5 mg/dZTedhie059.4-928.6Avon HospitalComment on above:Order Comment: Specimen Type: BLOOD SPECIMEN [facility] Address: [address] [place], [place] [address]Performed By: #### [id number] #### [facility] LAB CLIA [id number] [address] [place] [address] [place] AMERICAIgG subclass 2 (S) [Mass/Vol]251.2 mg/pSQexoqe961.8-700.3Avon HospitalComment on above:Order Comment: Specimen Type: BLOOD SPECIMEN [facility] Address: [address] [place], [place] [address]Performed By: #### [id number] #### [facility] LAB CLIA [id number] [address] [place] [address] [place] AMERICAIgG subclass 3 (S) [Mass/Vol]50.4 mg/xVSmissl73.8-176.1Avon HospitalComment on above:Order Comment: Specimen Type: BLOOD SPECIMEN [facility] Address: [address] [place], [place] [address]Performed By: #### [id number] #### [facility] LAB CLIA [id number] [address] [place] [address] [place] AMERICAIgG subclass 4 (S) [Mass/Vol]64.4 mg/dLNormal3.9-86.4Avon HospitalComment on above:Order Comment: Specimen Type: BLOOD SPECIMEN [facility] Address: [address] [place], [place] [address]Performed By: #### [id number] #### [facility] CLIA [id number] [address] [place], [place] [address] [place] AMERICAIgG SerPl-mCncon 10-23-2024 IgG [Mass/Vol]1100 mg/nVVwbizn639-1207Xlsl HospitalComment on above:Order Comment: Specimen Type: BLOOD SPECIMEN [facility] Address: [address] [place], [place] [address]Performed By: #### 2465-3 #### [facility] CLIA [id number] [address] [place] [address] [place] AMERICALipase SerPl-cCncon 89-46-5345Zashhz [Catalytic activity/Vol]55 U/RWijciv41-82Lxpl HospitalComment on above:Order Comment: Specimen Type: BLOOD SPECIMEN [facility] Address: [address] [place], [place] [address]Performed By: #### [id number], [id number] #### [facility] CLIA [id number] [address] [place], [place] [address] [place] OF AMERICAUS ABD RIGHT UPPER QUADRANT on 72-17-0134AM ABD RIGHT UPPER QUADRANT* * *Final Report* [...] 2. Small volume abdominal ascites. No splenomegaly. Sustainability Coach: [facility] Transcribe Date/Time: Oct 26 2024 2:30P Dictated by : SANDRA BELTRE MD This examination was interpreted and the report reviewed and electronically signed by: SANDRA BELTRE MD on Oct 26 2024 2:34PM EST [id number] Community Medical Center ABD SPLEEN -NBon 80-33-5488GD ABD SPLEEN -NB* * *Final Report* * * DATE OF EXAM: Oct 23 2024 2:18PM [facility] 1232 - [place] ABD SPLEEN -NB / [...] 2. Small volume abdominal ascites. No splenomegaly. Sustainability Coach: ALONSO Transcribe Date/Time: Oct 26 2024 2:30P Dictated by : SANDRA BELTRE MD This examination was interpreted and the report reviewed and electronically signed by: SANDRA BELTRE MD on Oct 26 2024 2:34PM EST [id number] Primary [facility]'s Hospital Chest limitedon 94-74-7578Neryoosft ClinicALKALINE PHOSPHATASE ISOENZYMES (P)on 31-29-9568OWP PHOS BONE %18.1 % Rrzual77.7-68.3CUniversity Hospitals [facility] Medical Center on above:Order Comment: Specimen Type: BLOOD SPECIMENOrdering Facility: [facility] Address:[address] [place], [place] [address]Performed By: #### ALKISOP ####[facility] LABCLIA [id number] [address] OF THE CHRIST HOSPITALALK PHOS LIVER %81.9 %Normal 26.0-86.2CUniversity Hospitals Cleveland Medical Center on above:Order Comment: Specimen Type: BLOOD SPECIMENOrdering Facility: [facility] Address:[address] [place], [place] [address]Performed By: #### ALKISOP ####[facility] LABCLIA [id number] [address] STATES OF AMERICABONE AMQFDUNT24.6 U/BNhheic60.9-52.6CUniversity Hospitals Cleveland Medical Center on above:Order Comment: Specimen Type: BLOOD SPECIMENOrdering Facility: [facility] Address:[address] [place], [place] [address]Performed By: #### ALKISOP ####[facility] LABCLIA [id number] [place] [address] [place] INTESTINE FRACTION0.0 U/LNormal0.0-16.3CUniversity Hospitals [facility] Center on above:Order Comment: Specimen Type: BLOOD SPECIMENOrdering Facility: [facility] Address:[address] [place], [place] [address]Performed By: #### ALKISOP ####[facility] LABIA [id number] [address] STATES [facility] JDFJJEHA401.4 U/LHigh16.0-69.3CUniversity Hospitals [facility] Medical Center on above:Order Comment: Specimen Type: BLOOD SPECIMENOrdering Facility: [facility] Address:[address] [place], [place] [address]Performed By: #### ALKISOP ####[facility] LABIA [id number] [address] STATES BELLEVUE HOSPITALeutrophils/100 WBC (Bld)0.0 % Normal0.0-24.2CUniversity Hospitals Cleveland Medical Center on above:Order Comment: Specimen Type: BLOOD SPECIMENOrdering Facility: [facility] Address:[address] [place], [place] [address]Performed By: #### ALKISOP ####[facility] COLUMBUSIA [id number] [address] STATES [facility] SerPl-cCncon 66-90-6894BNB [Catalytic activity/Vol] 125 U/MZaaj69-094ZkferzmwgPremier Health Atrium Medical Center on above:Order Comment: Specimen Type: BLOOD SPECIMENOrdering Facility: [facility] Address:[address] [place], [place] [address]Performed By: #### 6768-6, 26203-3, 64096-9 ####[facility] LABIA [id number], [place] [address] [place] AMERICACB W Auto Differential panel (Bld)on 51-29-9034Amainaicg (Bld) [#/Vol]NINFCleveland ClinicBasophils/100 WBC (Bld)0.1 %[facility] Medical CenterDifferential cell count method Nom (Bld)AutoCleveland ClinicEosinophils (Bld) [#/Vol]NINFClevelSelect Medical Specialty Hospital - Cincinnati NorthEosinophils/100 WBC (Bld)0 % [facility] Medical CenterErythrocyte distribution width (RBC) [Ratio]15.5 %High11.5 - 15.0 %[facility] Medical CenterHematocrit (Bld) [Volume fraction]40.7 %39.0 - 51.0 % [facility] Medical CenterHemoglobin (Bld) [Mass/Vol]12.9 g/dLLow13.0 - 17.0 g/dLOhiohealth Southeastern Medical CenterImmature granulocytes (Bld) [#/Vol]0.09 10*3/uLNINFOhiohealth Southeastern Medical Center Immature granulocytes/100 WBC (Bld)0.8 %[facility] Medical CenterInterpretation and review of laboratory resultsAbnormalCUniversity Hospitals Conneaut Medical CenterLymphocytes (Bld) [#/Vol]0.8 10*3/uLLowOhiohealth Southeastern Medical CenterLymphocytes/100 WBC (Bld)7.2 %Gal[facility] HospitalH (RBC) [Entitic mass]31.2 pg26.0 - 34.0 pgCMadison HealthHC (RBC) [Mass/Vol] 31.7 g/dL30.5 - 36.0 g/dLGalion HospitalV (RBC) [Entitic vol]98.5 fL80.0 - 100.0 fLCUniversity Hospitals Conneaut Medical CenterMonocytes (Bld) [#/Vol]0.81 10*3/uLNINFOhiohealth Southeastern Medical Center Monocytes/100 WBC (Bld)7.3 %[facility] Medical CenterNeutrophils (Bld) [#/Vol]9.45 10*3/uLHighOhiohealth Southeastern Medical CenterNeutrophils/100 WBC (Bld)84.6 %[facility] Nucleated RBC (Bld) [#/Vol]NINFClevelSelect Medical Specialty Hospital - Cincinnati NorthNucleated RBC/100 WBC (Bld) [Ratio]0 %/100 WBCOhiohealth Southeastern Medical CenterPlatelet mean volume (Bld) [Entitic vol]10.5 fL9.0 - 12.7 fLCpromedica memorial hospital ClinicPlatelets (Bld) [#/Vol]202 10*3/uLOhiohealth Southeastern Medical CenterRBC (Bld) [#/Vol]4.13 10*6/uLLow4.20 - 6.00 m/uLOhiohealth Southeastern Medical CenterWBC (Bld) [#/Vol]11.16 10*3/uLHighCleKettering Health PrebleBasophils (Bld) [#/Vol] 10*3/uLNormal<0.11CUniversity Hospitals [facility] on above:Order Comment: Specimen Type: BLOOD SPECIMENOrdering Facility: [facility] Address:[address] [place], [place] [address]Performed By: #### 69743-4, 4536-7 ####[facility] LABCLIA [id number] [place] [address] [place] AMERICABasophils/100 WBC (Bld)0.1 % [facility] on above:Order Comment: Specimen Type: BLOOD SPECIMENOrdering Facility: [facility] Address:[address] [place], [place] [address]Performed By: #### 92803-9, 4536-7 ####[facility] LABCLIA [id number] [place] [address] [place] AMERICADifferential cell count method Nom (Bld)AutoNormal [facility] on above:Order Comment: Specimen Type: BLOOD SPECIMENOrdering Facility: [facility] Address:[address] [place], [place] [address]Performed By: #### 58435-6, 7 ####[facility] LABCLIA [id number] [place] [address] [place] AMERICAEosinophils (Bld) [#/Vol]10*3/uLNormal<0.46[facility] on above:Order Comment: Specimen Type: BLOOD SPECIMENOrdering Facility: [facility] Address:[address] [place], [place] [address]Performed By: #### 33218-7, 4536-7 ####[facility] LABCLIA [id number] [place] [address] [place] AMERICAEosinophils/100 WBC (Bld)0.0 %NormalPremier Health Atrium Medical Center on above:Order Comment: Specimen Type: BLOOD SPECIMENOrdering Facility: [facility] Address:[address] [place], [place] [address]Performed By: #### 57596-4, 4536-7 ####[facility] LABIA [id number] [place] [address] [place] AMERICAErythrocyte distribution width (RBC) [Ratio]15.5 %High11.5-15.0[facility] Comment on above:Order Comment: Specimen Type: BLOOD SPECIMENOrdering Facility: [facility] Address:[address] [place] [address] Performed By: #### 05782-3, 4536-7 ####[facility] COLUMBUSIA [id number] [place] [address] [place] Hematocrit (Bld) [Volume fraction]40.7 %Cvvhxx04.0-51.0[facility] on above:Order Comment: Specimen Type: BLOOD SPECIMENOrdering Facility: [facility] Address:[address] [place], [place] [address]Performed By: #### 39875-3, 4536-7 ####[facility] COLUMBUSIA [id number] [place] [address] [place] Hemoglobin (Bld) [Mass/Vol]12.9 g/dLLow13.0-17.0[facility] Comment on above:Order Comment: Specimen Type: BLOOD SPECIMENOrdering Facility: [facility] Address:[address] [place] [address] Performed By: #### 34681-2, 7-7 ####[facility] LABIA [id number] [place] [address] [place] Immature granulocytes (Bld) [#/Vol]0.09 10*3/uLNormal<0.10[facility] on above:Order Comment: Specimen Type: BLOOD SPECIMENOrdering Facility: [facility] Address:[address] [place], [place] [address]Performed By: #### 77657-8, 7 ####[facility] LABCLIA [id number] [place] [address] [place] AMERICAImmature granulocytes/100 WBC (Bld)0.8 %NormalUc [facility] Comment on above:Order Comment: Specimen Type: BLOOD SPECIMENOrdering Facility: [facility] Address:[address] [place] [address] Performed By: #### 22881-0, 7 ####[facility] LABCLIA [id number] [place] [address] [place] Lymphocytes (Bld) [#/Vol]0.80 10*3/uLLow1.00-4.00[facility] Comment on above:Order Comment: Specimen Type: BLOOD SPECIMENOrdering Facility: [facility] Address:[address] [place] [address] Performed By: #### 23129-9, 4536-12 ####[facility]IA [id number] [place] [address] [place] Lymphocytes/100 WBC (Bld)7.2 %NormalUc West Chester HospitalComment on above: Order Comment: Specimen Type: BLOOD SPECIMENOrdering Facility: [facility] Address:[address] [place], [place] [address]Performed By: #### 22144- 8, 4536-12 ####[facility] LABCLIA [id number] [facility] [address] [place] AMERICAMCH (RBC) [Entitic mass] 31.2 uiGqgslq30.0-34.0Uc West Chester HospitalComment on above:Order Comment: Specimen Type: BLOOD SPECIMENOrdering Facility: [facility] Address:[address] [place], [place] [address]Performed By: #### 84406-6, 7 ####[facility] LABCLIA [id number] [address]ETMCHC (RBC) [Mass/Vol]31.7 g/dL Dbtpqg50.5-36.0[facility] on above:Order Comment: Specimen Type: BLOOD SPECIMENOrdering Facility: [facility] Address:[address] [place], [place] [address]Performed By: #### 06468-5, 4536-12 ####[facility] [id number] [address]ETV (RBC) [Entitic vol]98.5 fL Ssjnor77.0-100.0[facility] on above:Order Comment: Specimen Type: BLOOD SPECIMENOrdering Facility: [facility] Address:[address] [place], [place] [address]Performed By: #### 23670-4, 7 ####[facility] [id number] [place] [address] [place] AMERICAMonocytes (Bld) [#/Vol]0.81 10*3/uLNormal<0.87[facility] on above:Order Comment: Specimen Type: BLOOD SPECIMENOrdering Facility: [facility] Address:[address] [place], [place] [address]Performed By: #### 05824-2, 4536-12 ####[facility] [id number] [address] STATES OF AMERICAMonocytes/100 WBC (Bld)7.3 % NormalPremier Health Atrium Medical Center on above:Order Comment: Specimen Type: BLOOD SPECIMENOrdering Facility: [facility] Address:[address] [place], [place] [address]Performed By: #### 77053-0, 4536-12 ####[facility] [id number] [place] [address] [place] AMERICANeutrophils (Bld) [#/Vol]9.45 10*3/uLHigh1.45-7.50 [facility] on above:Order Comment: Specimen Type: BLOOD SPECIMENOrdering Facility: [facility] Address:[address] [place], [place] [address]Performed By: #### 92066-6, 4536-7 ####[facility] LABCLIA [id number] [place] [address] [place] AMERICANeutrophils/100 WBC (Bld)84.6 %NormalUc West Chester Hospital Comment on above:Order Comment: Specimen Type: BLOOD SPECIMENOrdering Facility: [facility] Address:[address] [place] [address] Performed By: #### 40279-4, 4536-7 ####[facility] LABIA [id number] [place] [address] [place] Nucleated RBC (Bld) [#/Vol]10*3/uLNormal<0.01[facility] on above:Order Comment: Specimen Type: BLOOD SPECIMENOrdering Facility: [facility] Address:[address] [place] [address] Performed By: #### 49535-3, 7-7 ####[facility] LABIA [id number] [place] [address] [place] Nucleated RBC/100 WBC (Bld) [Ratio]0.0 /100 WBCNormalCKindred Healthcare Comment on above:Order Comment: Specimen Type: BLOOD SPECIMENOrdering Facility: [facility] Address:[address] [place] [address] Performed By: #### 92459-9, 7-7 ####[facility] LABIA [id number] [place] [address] [place] Platelet mean volume (Bld) [Entitic vol]10.5 fLNormal9.0-12.7CUniversity Hospitals [facility] on above:Order Comment: Specimen Type: BLOOD SPECIMENOrdering Facility: [facility] Address:[address] [place], [place] [address]Performed By: #### 20359-3, 4537-7 ####[facility] LABCLIA [id number] [place] [address] [place] Platelets (Bld) [#/Vol]202 10*3/zOKtaqip292-838YshfbwutfPremier Health Atrium Medical Center on above:Order Comment: Specimen Type: BLOOD SPECIMENOrdering Facility: [facility] Address:[address] [place] [address] Performed By: #### 17463-1, 4537-7 ####[facility] LABIA [id number] [place] [address] [place] RBC (Bld) [#/Vol]4.13 10*6/uLLow4.20-6.00[facility] on above:Order Comment: Specimen Type: BLOOD SPECIMENOrdering Facility: [facility] Address:[address] [place], [place] [address]Performed By: #### 50136-5, 4537-7 ####[facility] LABIA [id number] [place] [address] [place] THE CHRIST HOSPITALWBC (Bld) [#/Vol]11.16 10*3/uLHigh3.70-11.00[facility] on above:Order Comment: Specimen Type: BLOOD SPECIMENOrdering Facility: [facility] Address:[address] [place], [place] [address]Performed By: #### 17313-0, 4537-7 ####[facility] LABIA [id number] [place] [address] [place] AMERICACNOVon 45-06-5161SPMXIcubry [facility]c [facility] HospitalCNPTOUTREACHon 69-54-6397SXDBIPNFRWUIZufazuDdgljbuov Clinic ClevelandCRP SerPl HS-mCncon 07-31-2366AZF High sensitivity method [Mass/Vol]13.2 mg/LHigh<3.1[facility] McdowellComment on above:Order Comment: Specimen Type: BLOOD SPECIMENOrdering Facility: [facility] Address:[address] [place], [place] [address]Result Comment: hsCRP < 1.0 mg/L, relative risk is lowhsCRP 1.0-3.0 mg/L, relative risk is averagehsCRP > 3.0 mg/L, relative risk is highReference:Roman TA, Wilma GA, Octavio RW, et al. Markers of Inflammation and Cardiovascular Disease. Application to Clinical and Public Health Practice. A Statement for Healthcare Professionals from the Centers for Disease Control and Prevention and the [place] [employer]. Circulation 2003;107:499-511.Performed By: #### 6768-6, 09894-3, 80162-3 ####[facility] LABCLIA [id number] [address] [place] AMERICAComprehensive metabolic [address] [place], [place] [address]on 91-41-7611Cvqtwkx [Mass/Vol]4.2 g/dL3.9 - 4.9 g/dLSavannah ClinicALP [Catalytic activity/Vol]125 U/LHigh38 - 113 U/LCleveland ClinicALT [Catalytic activity/Vol]41 U/L10 - 54 U/LCleveland ClinicAnion gap [Moles/Vol]14 mmol/L8 - 15 mmol/LCleveland ClinicAST [Catalytic activity/Vol]53 U/LHigh14 - 40 U/L [facility] CenterBilirubin [Mass/Vol]0.6 mg/dL0.2 - 1.3 mg/dLOhiohealth Southeastern Medical Center Calcium [Mass/Vol]9.7 mg/dL8.5 - 10.2 mg/dLSavannah ClinicChloride [Moles/Vol] 101 mmol/L98 - 107 mmol/LCleveland ClinicCO2 [Moles/Vol]27 mmol/L22 - 30 mmol/L [facility] CenterCreatinine [Mass/Vol]1.09 mg/dL0.73 - 1.22 mg/dLOhiohealth Southeastern Medical Center GFR/1.73 sq M.predicted among non-blacks MDRD (S/P/Bld) [Vol rate/Area]72 mL/min/{1.73_m2}- PINTriHealth Good Samaritan [facility] on above:Estimated Glomerular Filtration Rate (eGFR) is calculated using the 2020 CKD-EPI creatinine equation. This equation utilizes serum creatinine, sex, and age as parameters. The creatinine assay has traceable calibration to isotope dilution-mass spectrometry. Refer to KDIGO guidelines for clinical interpretation. In patients with unstable renal function, e.g. those with acute kidney injury, the eGFRmay not accurately reflect actual GFR.Glucose [Mass/Vol]116 mg/jIZljk76 - 99 mg/dL [facility] on above:The [place] Diabetes Association (ADA) provides guidance for cutoff [...] Standards of Medical Care in Diabetes 2016, [place] [employer]. Diabetes Care. 2016.39(Suppl 1). Potassium [Moles/Vol]4.1 mmol/L3.7 - 5.1 mmol/LCleveland ClinicProtein [Mass/Vol]7.6 g/dL6.3 - 8.0 g/dLSavannah ClinicSodium [Moles/Vol]142 mmol/L136 - 144 mmol/LCleveland ClinicUrea nitrogen [Mass/Vol]35 mg/dLHigh9 - 24 mg/dL Savannah ClinicAlbumin [Mass/Vol]4.2 g/dLNormal3.9-4.9ClevelDelaware County Hospital on above:Order Comment: Specimen Type: BLOOD SPECIMENOrdering Facility: [facility] Address:[address] [place], [place] [address]Performed By: #### 6768-6, 45973-6, 43863-1 ####[facility] LABCLIA [id number] STATES OF AMERICAALT [Catalytic activity/Vol]41 U/BOrwnoe64-83PukloevkoPremier Health Atrium Medical Center on above:Order Comment: Specimen Type: BLOOD SPECIMENOrdering Facility: [facility] Address:[address] [place], [place] [address]Performed By: #### 6768-6, 75346-5, 01063-2 ####[facility] LABCLIA [id number] AVENUEHIGHLAND SPRINGS SURGICAL CENTERK [place] [id number] [place] AMERICAAnion gap [Moles/Vol]14 mmol/LNormal8-15[facility] on above:Order Comment: Specimen Type: BLOOD SPECIMENOrdering Facility: [facility] Address:[address] [place], [place] [address]Performed By: #### 6768-6, 77343-9, 69350-6 ####[facility] LABCLIA [id number] [address] [place] AMERICAAST [Catalytic activity/Vol]53 U/QXavv40-85HphrwvuemPremier Health Atrium Medical Center on above:Order Comment: Specimen Type: BLOOD SPECIMENOrdering Facility: [facility] Address:[address] [place], [place] [address]Performed By: #### 6768-6, 47256-0, 21591-5 ####[facility] LABCLIA [id number] [place] [id number] [place] AMERICABilirubin [Mass/Vol]0.6 mg/dLNormal0.2-1.3CUniversity Hospitals [facility] Medical Center on above:Order Comment: Specimen Type: BLOOD SPECIMENOrdering Facility: [facility] Address:[address] [place], [place] [address]Performed By: #### 6768-6, 70299-1, 89565-3 ####[facility] LABCLIA [id number] AVENUEHIGHLAND SPRINGS SURGICAL CENTERK [address] [place] [address] [place] AMERICACalcium [Mass/Vol]9.7 mg/dLNormal8.5-10.2[facility] Clinic ClevelandComment on above:Order Comment: Specimen Type: BLOOD SPECIMENOrdering Facility: [facility] Address:[address] [place], [place] [address]Performed By: #### 6768-6, 96199-4, 64303-0 ####[facility] LABCLIA [id number] VIL[place] [address] [place] AMERICAChloride [Moles/Vol]101 mmol/DZrvpjz81-789XemridlywUc West Chester HospitalComment on above:Order Comment: Specimen Type: BLOOD SPECIMENOrdering Facility: [facility] Address:[address] [place], [place] [address]Performed By: #### 6768-6, 56688-5, 48095-8 ####[facility] LABIA [id number] VILLE [address] [place] AMERICACO2 [Moles/Vol]27 mmol/VZzebdo57-33ZqqzfgtwwUc [facility] Hospital Comment on above:Order Comment: Specimen Type: BLOOD SPECIMENOrdering Facility: [facility] Address:[address] [place] [address] Performed By: #### 6768-6, 46495-6, 24616-9 ####[facility] LABIA [id number] VILLE [address] [place] AMERICACreatinine [Mass/Vol]1.09 mg/dLNormal0.73-1.22[facility] Comment on above:Order Comment: Specimen Type: BLOOD SPECIMENOrdering Facility: [facility] Address:[address] [place] [address] Performed By: #### 6768-6, 37851-0, 09535-0 ####[facility] LABIA [id number] [address] [place] AMERICACreatinine and Glomerular filtration rate.predicted panel (S/P/Bld)72 mL/min/1.73m???Normal>=60[facility] on above:Order Comment: Specimen Type: BLOOD SPECIMENOrdering Facility: [facility] Address:[address] [place], [place] [address]Zemitu Comment: Estimated Glomerular Filtration Rate (eGFR) is [...] accurately reflect actual GFR.Performed By: #### 6768-6, 38100-2, 14516-5 ####[facility] LABIA [id number] [address] [place] AMERICAGlucose [Mass/Vol]116 mg/dLHigh 74-99[facility] on above:Order Comment: Specimen Type: BLOOD SPECIMENOrdering Facility: [facility] Address:[address] [place] [address]Zlzwyz Comment: The [place] Diabetes Association (ADA) provides guidance for cutoff [...] Standards of Medical Care in Diabetes 2016, [place] [employer]. Diabetes Care. 2016.39(Suppl 1).Performed By: #### 6768-6, 65560-3, 45941-0 ####[facility] LABIA [id number] [address] [place] AMERICAPotassium [Moles/Vol] 4.1 mmol/LNormal3.7-5.1CUniversity Hospitals [facility] Medical Center on above:Order Comment: Specimen Type: BLOOD SPECIMENOrdering Facility: [facility] Address:[address] [place], [place] [address]Performed By: #### 6768-6, 41983-0, 14146-5 ####[facility] LABIA [id number], [place] [address] [place] AMERICAProtein [Mass/Vol]7.6 g/dLNormal 6.3-8.0[facility] on above:Order Comment: Specimen Type: BLOOD SPECIMENOrdering Facility: [facility] Address:[address] [place], [place] [address]Performed By: #### 6768-6, 76109-4, 00613-4 ####[facility] LABIA [id number], [place] [address] [place] AMERICASodium [Moles/Vol]142 mmol/L Nrvlci993-230JnujbjajtUc West Chester HospitalComcaro center on above:Order Comment: Specimen Type: BLOOD SPECIMENOrdering Facility: [facility] Address:[address] [place], [place] [address]Performed By: #### 6768-6, 78151-4, 06092-8 ####[facility] COLUMBUSIA [id number], [place] [address] [place] AMERICAUrea nitrogen [Mass/Vol]35 mg/dL High9-24[facility] on above:Order Comment: Specimen Type: BLOOD SPECIMENOrdering Facility: [facility] Address:[address] [place], [place] [address]Performed By: #### 6768-6, 26574-7, 90022-8 ####[facility] LABSOUTHWESTERN VERMONT MEDICAL CENTER [id number] VILLE 16732[address] [place] AMERICAAlbumin [Mass/Vol]4.2 g/dL3.9 - 4.9 g/dLSavannah ClinicALP [Catalytic activity/Vol]124 U/LHigh38 - 113 U/L [facility] ClinicALT [Catalytic activity/Vol]40 U/L10 - 54 U/LCUniversity Hospitals [facility] Anion gap [Moles/Vol]13 mmol/L8 - 15 mmol/LCleveland ClinicAST [Catalytic activity/Vol]49 U/LHigh14 - 40 U/LCleveland ClinicBilirubin [Mass/Vol]0.7 mg/dL 0.2 - 1.3 mg/dLSavannah ClinicCalcium [Mass/Vol]9.3 mg/dL8.5 - 10.2 mg/dL [facility] ClinicChloride [Moles/Vol]100 mmol/L98 - 107 mmol/LCleveland ClinicCO2 [Moles/Vol]28 mmol/L22 - 30 mmol/LCleveland ClinicCreatinine [Mass/Vol]1.13 mg/dL0.73 - 1.22 mg/dLSavannah ClinicGFR/1.73 sq M.predicted among non-blacks MDRD (S/P/Bld) [Vol rate/Area]69 mL/min/{1.73_m2}- PINFCleveland ClinicComment on above:Estimated Glomerular Filtration [...] not accurately reflect actual GFR.Glucose [Mass/Vol] 104 mg/fSYstt36 - 99 mg/dLOhiohealth Southeastern Medical CenterComment on above:The [place] Diabetes Association (ADA) provides guidance for cutoff [...] Standards of Medical Care in Diabetes 2016, [place] [employer]. Diabetes Care. 2016.39(Suppl 1). Potassium [Moles/Vol]3.8 mmol/L3.7 - 5.1 mmol/LCleveland ClinicProtein [Mass/Vol]7.5 g/dL6.3 - 8.0 g/dLSavannah ClinicSodium [Moles/Vol]141 mmol/L136 - 144 mmol/LCleveland ClinicUrea nitrogen [Mass/Vol]33 mg/dLHigh9 - 24 mg/dL [facility] Westergren method (Bld) [Velocity]on 46-68-3205WFM (Bld) [Velocity]34 mm/hHighOhiohealth Southeastern Medical CenterInterpretation and review of laboratory resultsAbnormalCleveland Knox Community HospitalR (Bld) [Velocity]34 mm/hHigh 0-15[facility] HospitalComment on above:Order Comment: Specimen Type: BLOOD SPECIMENOrdering Facility: [facility] Address:[address] [place], [place] [address]Performed By: #### 30689-1, 4537-7 ####[facility] LABCLIA [id number] [address]ETHIGH SENSITIVITY C-REACTIVE PROTEINon 07-59-0774UCI High sensitivity method [Mass/Vol]13.2 mg/LHighNINF - 3.1 mg/LCberger hospitaland [facility] Comment on above:hsCRP < 1.0 mg/L, relative risk is low hsCRP 1.0-3.0 mg/L, relative risk is average hsCRP > 3.0 mg/L, relative risk is high Reference: Roman TA, Wilma GA, Octavio RW, et al. Markers of Inflammation and Cardiovascular Disease. Application to Clinical and Public Health Practice. A Statement for Healthcare Professionals from the Centers for Disease Control and Prevention and the [place] [employer] Association. Circulation 2003;107:499-511. Laboratory - Chemistry and Chemistry - challengeon 95-76-5445Smvii glutamyl transferase [Catalytic activity/Vol]136 U/LHigh10 - 70 U/LCleveland [facility] Magnesium [Mass/Vol]2.2 mg/dL1.7 - 2.3 mg/dLOhiohealth Southeastern Medical CenterMagnesium [Mass/Vol] on 27-95-5765Qhjqkzzrdtovsp and review of laboratory resultsNormalCleveland St. Mary'S HospitalNo Panel Informationon 56-46-7335Oowfowwffzmiew and review of laboratory resultsAbnormalCleveland [facility] ClinicInterpretation and review of laboratory resultsAbnormalCleveland [facility] City HospitalProt/Creat Uron 73-96-7167Trulafo/Creatinine (U) [Mass ratio]mg/gHigh<0.15[facility] on above:Order Comment: Specimen Type: URINE SPECIMENOrdering Facility: [facility] Address:[address] [place], [place] [address]Result Comment: Adult Proteinuria Categories:<0.15 mg/mg is considered normal to mildly increased0.15 - 0.50 mg/mg is considered moderately increased>0.50 mg/mg is considered severely increasedKDIGO. (2013). KDIGO 2012 Clinical Practice Guideline for the Evaluation and Management of Chronic Kidney Disease. Official Journal of the International Society of Nephrology, 3(1), 1-150.Performed By: #### 2890-2 ####[facility] LABCLIA [id number] [place] [address] [place] Protein/Creatinine (U) [Mass ratio]on 71-14-0527Ogqiraqrkf (U) [Mass/Vol]12.6 mg/dLLow20.0-300.0[facility] on above:Order Comment: Specimen Type: URINE SPECIMENOrdering Facility: [facility] Address:[address] [place], [place] [address]Performed By: #### 2890-2 ####[facility] LABCLIA [id number] [place] [address] [place] THE CHRIST HOSPITALProtein (U) [Mass/Vol]mg/dLNormal 0-20[facility] on above:Order Comment: Specimen Type: URINE SPECIMENOrdering Facility: [facility] Address:[address] [place], [place] [address]Performed By: #### 2890-2 ####[facility] LABIA [id number] [place] [address] [place] AMERICAUA DIP, URINE (POC)on 47-37-0534LGQUZDKRP UA (POCT)Negative NegativeCleMercy Health St. Vincent Medical CenterARITY UA (POCT)ClearCleSelect Medical Specialty Hospital - ColumbusCOLOR UA (POCT) Light yellowCleveland ClinicGLUCOSE UA (POCT)NegativeNegative mg/dLOhiohealth Southeastern Medical CenterHemoglobin Ql (U)NegativeNegativeOhiohealth Southeastern Medical CenterKETONE UA (POCT)Negative Negative mg/dLOhiohealth Southeastern Medical CenterLEUKOCYTES UA (POCT)NegativeNegativeOhiohealth Southeastern Medical CenterNITRITE UA (POCT)NegativeNegativeOhiohealth Southeastern Medical CenterPH UA (POCT)74.5 - 8.0 EspinosaSelect Medical Specialty Hospital - ColumbusProtein Ql (U)NegativeNegative mg/dLSt. Vincent HospitalPECIFIC GRAVITY UA (POCT)1.0151.005 - 1.030Ohiohealth Southeastern Medical CenterUROBILINOGEN UA (POCT)0.2 Normal E.U./dLOhiohealth Southeastern Medical CenterLocation:[facility], [address] [place] [address], [address] [place] [address] POINT OF CAREOhiohealth Southeastern Medical CenterCBC panel Auto (Bld)on 55-90-2853Kkrymqerquh distribution width (RBC) [Ratio]15.7 %High 11.5 - 15.0 %[facility]heastern Medical CenterHematocrit (Bld) [Volume fraction]39.8 %39.0 - 51.0 %[facility] Medical CenterHemoglobin (Bld) [Mass/Vol]13 g/dL13.0 - 17.0 g/dLOhiohealth Southeastern Medical CenterInterpretation and review of laboratory resultsAbnormalCMadison HealthH (RBC) [Entitic mass]31.9 pg26.0 - 34.0 pgCMadison HealthHC (RBC) [Mass/Vol] 32.7 g/dL30.5 - 36.0 g/dLGalion HospitalV (RBC) [Entitic vol]97.5 fL80.0 - 100.0 fLCpromedica memorial hospital ClinicNucleated RBC (Bld) [#/Vol]NINFClevelSelect Medical Specialty Hospital - Cincinnati NorthPlatelet mean volume (Bld) [Entitic vol]10.9 fL9.0 - 12.7 fLCUniversity Hospitals Conneaut Medical CenterPlatelets (Bld) [#/Vol]183 10*3/uLOhiohealth Southeastern Medical CenterRBC (Bld) [#/Vol]4.08 10*6/uLLow4.20 - 6.00 m/[facility] HospitalWBC (Bld) [#/Vol]7.85 10*3/Clinton Memorial HospitalErythrocyte distribution width (RBC) [Ratio]15.7 %High11.5-15.0[facility] on above:Order Comment: Specimen Type: BLOOD SPECIMENOrdering Facility: [facility] Address:[address] [place], [place] [address]Performed By: #### 10438-2 ####[facility] LABIA [id number] [place] [address] [place] AMERICAHematocrit (Bld) [Volume fraction]39.8 %Zmzzvd68.0-51.0[facility] on above:Order Comment: Specimen Type: BLOOD SPECIMENOrdering Facility: [facility] Address:[address] [place], [place] [address]Performed By: #### 08480-7 ####[facility] LABIA [id number] [place] [address] [place] Hemoglobin (Bld) [Mass/Vol]13.0 g/bTJdgdry46.0-17.0[facility] Comment on above:Order Comment: Specimen Type: BLOOD SPECIMENOrdering Facility: [facility] Address:[address] [place] [address] Performed By: #### 03368-1 ####[facility] LABIA [id number] [place] [address] [place] MCH (RBC) [Entitic mass]31.9 ceJptmwg03.0-34.0[facility] on above:Order Comment: Specimen Type: BLOOD SPECIMENOrdering Facility: [facility] Address:[address] [place] [address] Performed By: #### 88299-6 ####[facility] LABIA [id number] [place] [address] [place] MCHC (RBC) [Mass/Vol]32.7 g/vRPvsydj55.5-36.0[facility] on above:Order Comment: Specimen Type: BLOOD SPECIMENOrdering Facility: [facility] Address:[address] [place] [address] Performed By: #### 43702-8 ####[facility] LABCLIA [id number] [place] [address] [place] MCV (RBC) [Entitic vol]97.5 oSOqzlgx02.0-100.0[facility] on above:Order Comment: Specimen Type: BLOOD SPECIMENOrdering Facility: [facility] Address:[address] [place] [address] Performed By: #### 47982-3 ####[facility] LABCLIA [id number] [place] [address] [place] Nucleated RBC (Bld) [#/Vol]10*3/uLNormal<0.01[facility] on above:Order Comment: Specimen Type: BLOOD SPECIMENOrdering Facility: [facility] Address:[address] [place] [address] Performed By: #### 92841-0 ####[facility] LABCLIA [id number] [place] [address] [place] Platelet mean volume (Bld) [Entitic vol]10.9 fLNormal9.0-12.7CUniversity Hospitals [facility] Medical Center on above:Order Comment: Specimen Type: BLOOD SPECIMENOrdering Facility: [facility] Address:[address] [place], [place] [address]Performed By: #### 73502-0 ####[facility] LABCLIA [id number] [place] [address] [place] Platelets (Bld) [#/Vol]183 10*3/vTAzpubn780-325SyylxlyewPremier Health Atrium Medical Center on above:Order Comment: Specimen Type: BLOOD SPECIMENOrdering Facility: [facility] Address:[address] [place] [address] Performed By: #### 17489-7 ####[facility] LABCLIA [id number] [place] [address] [place] RBC (Bld) [#/Vol]4.08 10*6/uLLow4.20-6.00[facility] on above:Order Comment: Specimen Type: BLOOD SPECIMENOrdering Facility: [facility] Address:[address] [place], [place] [address]Performed By: #### 59187-6 ####[facility] LABIA [id number] [place] [address] [place] OF AMERICAWBC (Bld) [#/Vol]7.85 10*3/uLNormal3.70-11.00[facility] on above:Order Comment: Specimen Type: BLOOD SPECIMENOrdering Facility: [facility] Address:[address] [place], [place] [address]Performed By: #### 28706-3 ####[facility] [id number] [place] [address] [place] OF AMERICACNOVon 24-51-0961RGSDBrxnvz Peoples Hospitalprehensive metabolic 2000 panelon 31-12-7230Jxhlfxm [Mass/Vol]4.2 g/dLNormal3.9-4.9CUniversity [facility] on above:Order Comment: Specimen Type: BLOOD SPECIMENOrdering Facility: [facility] Address:[address] [place], [place] [address]Performed By: #### 77493- 8, 32755-7, 2323-2 ####[facility] LABIA [id number] [place]IL[place] [address] [place] AMERICAALP [Catalytic activity/Vol]124 U/VEpwz12-531TmvjgaezpPremier Health Atrium Medical Center on above:Order Comment: Specimen Type: BLOOD SPECIMENOrdering Facility: [facility] Address:[address] [place], [place] [address]Performed By: #### 59769- 8, , 2323-07 ####[facility] LABCLIA [id number] AVENUEHIGHLAND SPRINGS SURGICAL CENTERK [address] [address] [place] OF AMERICAALT [Catalytic activity/Vol]40 U/CFjccpd22-49OrqtolhnvPremier Health Atrium Medical Center on above:Order Comment: Specimen Type: BLOOD SPECIMENOrdering Facility: [facility] Address:[address] [place], [place] [address]Performed By: #### 29151- 8, , 2323-07 ####[facility] LABCLIA [id number] [address] [address] [place] AMERICAAnion gap [Moles/Vol] 13 mmol/LNormal8-15[facility] on above:Order Comment: Specimen Type: BLOOD SPECIMENOrdering Facility: [facility] Address:[address] [place], [place] [address]Performed By: #### 59524-8, , 2323-07 ####[facility] LABCLIA [id number] [address] [address] [place] AMERICAAST [Catalytic activity/Vol]49 U/PSjbt65-67PyrahskxjPremier Health Atrium Medical Center on above:Order Comment: Specimen Type: BLOOD SPECIMENOrdering Facility: [facility] Address:[address] [place], [place] [address]Performed By: #### 91752-5, , 2323-07 ####[facility] LABCLIA [id number] [facility] HOSPITALK [address] [address] [place] AMERICABilirubin [Mass/Vol]0.7 mg/dL Normal0.2-1.3CUniversity Hospitals [facility] on above:Order Comment: Specimen Type: BLOOD SPECIMENOrdering Facility: [facility] Address:[address] [place], [place] [address]Performed By: #### 93363-2, , 2323-07 ####[facility] LABCLIA [id number] [place]IL[place] [address] [place] AMERICACalcium [Mass/Vol]9.3 mg/dLNormal 8.5-10.2CUniversity [facility]als [facility] on above:Order Comment: Specimen Type: BLOOD SPECIMENOrdering Facility: [facility] Address:[address] [place], [place] [address]Performed By: #### 55541-5, 12919-1, 2 ####[facility] LABCLIA [id number] VILLE [address] [place] AMERICAChloride [Moles/Vol]100 mmol/L Hkiuve72-019YibppwmzwPremier Health Atrium Medical Center on above:Order Comment: Specimen Type: BLOOD SPECIMENOrdering Facility: [facility] Address:[address] [place], [place] [address]Performed By: #### 80592-6, , 2323-07 ####[facility] LABCLIA [id number], [place] [address] [place] AMERICACO2 [Moles/Vol]28 mmol/LNormal 22-30[facility] on above:Order Comment: Specimen Type: BLOOD SPECIMENOrdering Facility: [facility] Address:[address] [place], [place] [address]Performed By: #### 26045-9, , 2323-07 ####[facility] LABCLIA [id number] VILLE [address] [place] STATES OF AMERICACreatinine [Mass/Vol]1.13 mg/dL Normal0.73-1.22[facility] on above:Order Comment: Specimen Type: BLOOD SPECIMENOrdering Facility: [facility] Address:[address] [place], [place] [address]Performed By: #### 84404-3, , 2 ####[facility] LABCLIA [id number] [place] [address] [place] AMERICACreatinine and Glomerular filtration rate.predicted panel (S/P/Bld)69 mL/min/1.73m???Normal>=60[facility] on above:Order Comment: Specimen Type: BLOOD SPECIMENOrdering Facility: [facility] Address:[address] [place], [place] [address]Result Comment: Estimated Glomerular Filtration Rate (eGFR) is calculated using the 2020 CKD-EPI creatinine equation. This equation utilizes serum creatinine, sex, and age as parameters. The creatinine assay has traceable calibration to isotope dilution-mass spectrometry. Refer to KDIGO guidelines for clinical interpretation. In patients with unstable renal function, e.g. those with acute kidney injury, the eGFR may not accurately reflect actual GFR.Performed By: #### 78406-6, 96291-7, 2323-07 ####[facility] LABIA [id number] [place] [address] [place] AMERICAGlucose [Mass/Vol]104 mg/fBPopb42-55GjlffwyntPremier Health Atrium Medical Center on above:Order Comment: Specimen Type: BLOOD SPECIMENOrdering Facility: [facility] Address:[address] [place], [place] [address]Result Comment: The [place] Diabetes Association (ADA) provides guidance for cutoff [...] Standards of Medical Care in Diabetes 2016, [place] [employer]. Diabetes Care. 2016.39(Suppl 1).Performed By: #### 05265- 8, 36192-2, 2323- ####[facility] LABIA [id number] [place] [address] [place] AMERICAPotassium [Moles/Vol] 3.8 mmol/LNormal3.7-5.1CUniversity Hospitals [facility] on above:Order Comment: Specimen Type: BLOOD SPECIMENOrdering Facility: [facility] Address:[address] [place], [place] [address]Performed By: #### 96954-6, , 2323-07 ####[facility] LABCLIA [id number] [address], [facility]95 [place] AMERICAProtein [Mass/Vol]7.5 g/dLNormal 6.3-8.0[facility] on above:Order Comment: Specimen Type: BLOOD SPECIMENOrdering Facility: [facility] Address:[address] [place], [place] [address]Performed By: #### 17791-6, , 2323-07 ####[facility] LABCLIA [id number] [place]IL[place] [address] [place] AMERICASodium [Moles/Vol]141 mmol/L Saaqwg918-243BcwcoxrtqPremier Health Atrium Medical Center on above:Order Comment: Specimen Type: BLOOD SPECIMENOrdering Facility: [facility] Address:[address] [place], [place] [address]Performed By: #### 83742-6, , 2323-07 ####[facility] LABCLIA [id number] [place] [address] [place] AMERICAUrea nitrogen [Mass/Vol]33 mg/dL High9-24[facility] on above:Order Comment: Specimen Type: BLOOD SPECIMENOrdering Facility: [facility] Address:[address] [place], [place] [address]Performed By: #### 15078-5, , 2323-07 ####[facility] LABCLIA [id number] [address] [place] [address] [place] AMERICAGGT SerPl-cCncon 81-61-2209Swsqr glutamyl transferase [Catalytic activity/Vol]136 U/UJhrw89-16GindtoggcPremier Health Atrium Medical Center on above:Order Comment: Specimen Type: BLOOD SPECIMENOrdering Facility: [facility] Address:[address] [place], [place] [address]Performed By: #### 56147-1, 71298-0, 2324-2 ####[facility] LABCLIA [id number] STATES OF THE CHRIST HOSPITALLD Fld-cCncon 84-41-0545WGR (Body fld) [Catalytic activity/Vol]110 U/LNormalSee CommentPremier Health Atrium Medical Center on above: Order Comment: Specimen Type: SPECIMEN FROM PLEURA OBTAINED BY THORACENTESISOrdering Facility: [facility] Address: [address] [place], [place] [address]Result Comment: Pleural fluids: Pleural fluid lactate dehydrogenase [...] Clinical Chemistry Approved Guideline. CLSI document C49A. Hoa PA: Clinical Laboratory Standards [place]: 2007.Reference: 2. Rafael STARK, Fei Doyle. Body [...] [facility] LABCLIA [id number] [place] [address] [place] AMERICAMagnesium SerPl-mCncon 02-78-3370Wqjapqifp [Mass/Vol]2.2 mg/dLNormal 1.7-2.3CUniversity [facility]als [facility] on above:Order Comment: Specimen Type: BLOOD SPECIMENOrdering Facility: [facility] Address:[address] [place], [place] [address]Performed By: #### 77287-3, 59876-0, 2324-2 ####[facility] LABCLIA [id number] [address] [place] AMERICAOPERATIVE NOon 10-14-2024 OPERATIVE NONormalUc West Chester HospitalProt Fld-mCncon 84-11-9326Fbgrfve (Body fld) [Mass/Vol]2.5 g/dLNormalSee CommentPremier Health Atrium Medical Center on above:Order Comment: Specimen Type: SPECIMEN FROM PLEURA OBTAINED BY THORACENTESISOrdering Facility: [facility] Address: [address] [place], [place] [address]Result Comment: Serous fluids: Effusions are the accumulation [...] document C49A. RAJEEV Bui: Clinical Laboratory Standards [place]: 2007.Performed By: #### 2529-6, 2881-1 ####[facility] LABCLIA [id number] [place] [id number] [place] AMERICAUS Chest limitedon 93-65-2562Twsezhrgs Study observation (narrative)[facility] CenterXR CHEST 2V FRONTAL/LATon 01-81-2234ID CHEST 2V FRONTAL/LATNormalCKindred HealthcareXR Chest PA and Lateralon 19-83-9723GISJDRPIZL: 1. Small located/partially loculated right pleural effusion, [...] any questions regarding this interpretation, please call [phone]. If you are unable to reach us at the number above, please feel free to contact [facility] at [phone].DIVISION OF RADIOLOGY* * *Final Report* * * [...] and soft tissues: Unremarkable. DIVISION OF RADIOLOGYProvider, [facility] [place] - 10/13/2024 * * *Final Report* * [...] any questions regarding this interpretation, please call [phone]. If you are unable to reach us at the number above, please feel free to contact [facility] at [phone]. [facility] CenterRadiology Study observation (narrative)[facility] Chest PA and LateralOrdered By: Ccf Provider on 50-52-0146Vgmyycywc ClinicCNPNon 76-45-0605QRGVVeovefUmuzvklyrSheltering Arms HospitalBRIEF OP NOTon 99-29-0628EGFBN OP NOTNormalCKindred HealthcareCNPNon 73-49-9728ORARMfzwgmFgutvfgaySheltering Arms HospitalANES POSTPROC EVALon 00-08-8095CKYL POSTPROC EVALNormalCKindred HealthcareANES PRE-OPon 75-10-1564MZWM PRE-OPNormalUc West Chester HospitalEGD Study observation Narrativeon 74-12-1564Gefowvdsd ClinicRadiology Study observation (narrative)[facility] Medical CenterHISTORY PHYSICALon 33-99-4818LJRGEKO PHYSICALNormalCKindred HealthcareNZUNI HOSPITALING PROGon 16-50-5550YVENCYZ PROG [facility] HospitalNNOR[facility] PROGNormalUc [facility] Hospital Pathology biopsy report Abhijit (Tiss)on 04-95-6887UZBJXVDD 1:[facility]'s HospitalComcaro center on above:Order Comment: Specimen Type: TISSUE SPECIMENOrdering Facility: [facility] Address: [address] [place], [place] [address]Result Comment: Addendum is issued to reflect the result of immunohistochemical stain:- Immunostainfor H. pylori is negative in part A.Addendum electronically signed by Simba Frias MD, PhD on 10/01/2024 at 1725 EDTPerformed By: #### 00752-1 ####[facility] [id number] [address] STATES OF [place] AP DISCLAIMERNoOhio State University Wexner Medical CenterComment on above:Order Comment: Specimen Type: TISSUE SPECIMENOrdering Facility: [facility] Address: [address] [place], [place] [address]Result Comment: Laboratory Developed Test (LDT) Disclaimer:Performance characteristics of immunohist ochemical, immunofluorescent, and chromogenic in-situ hybridization tests have been determined by the performing laboratory within [facility]'s [facility] Pathology and Laboratory Medicine Department ([facility], [facility], [facility], [facility], [facility], [facility], or [facility]) in a manner consistent with CLIA requirements. One or more of these tests may not have been cleared or approved by the FDA. RT[facility]PLM is regulated under CLIA as qualified to perform high-complexity testing. These tests are used for clinical purposes. These should not be regarded as investigational or for research. Positive and negative controls stain appropriately.Performed By: #### 33604-7 ####[facility] LABIA [id number] [place] [id number] [facility] OF AMERICACASE REPORTNormSumma HealthComment on above:Order Comment: Specimen Type: TISSUE SPECIMENOrdering Facility: [facility] Address: [address] [place], [place] [address]Result Comment: Surgical Pathology Report Case: [id number] Provider: Shay Dennis MD Collected: 09/25/2024 11:32 AMOrdering Location: Gastroenterology Received: 09/25/2024 04:32 PMPathologist: Simba Frias MD, PhDSpecimen: Stomach, Biopsy, R/O: H. PyloriPerformed By: #### 40427-6 ####[facility] LABIA [id number] [address] [place] [address] [facility]IA[facility] MEDICAL CENTERFINAL DIAGNOSISAshtabula General Hospital on above:Order Comment: Specimen Type: TISSUE SPECIMENOrdering Facility: [facility] Address: [address] [place], [place] [address]Result Comment: A. Stomach, biopsy:- Chronic focally active gastritis and reactive gastropathy in antral and oxyntic mucosa.- Negative for intestinal metaplasia or dysplasia.- H. pylori immunostain will be reported as an addendum. at 1344 EDTPerformed By: #### 23987-9 ####[facility] LABCLIA [id number] [address] [address] [facility] FINAL [facility] LABNoCleveland Clinic [facility] on above:Order Comment: Specimen Type: TISSUE SPECIMENOrdering Facility: [facility] Address: [address] [place], [place] [address]Result Comment: Diagnostic interpretation performed at: [facility], [address] [place] [address] CLIA# [id number] Director: Ramos Strickland MDPerformed By: #### 22868-5 ####[facility] LABCLIA [id number] [address] [place], [place] [address]GROSS DESCRIPTIONAshtabula General Hospital on above:Order Comment: Specimen Type: TISSUE SPECIMENOrdering Facility: [facility] Address: [address] [place], [place] [address]Result Comment: A. Stomach, BiopsyReceived in formalin are multiple pieces of de la garza, soft tissue aggregating to 1.9 x 0.3 x 0.2 cm. Totally submitted in one cassette.Gross examination performed at [facility], [address] [place] [address] September 25, 2024 6:03 PMPerformed By: #### 61173-7 ####[facility] LABCLIA [id number] [facility] [place]99JCTZTFLGB, [place] [address] [place] AMERICAUpper GI endoscopyon 33-01-1515Fzmer GI endoscopyNormalCKindred HealthcareCNPNon 09-23-2024 CNPNNormalUc West Chester HospitalNURSING PROGon 82-79-8644HLXVYSP PROGNormal [facility] HospitalCNPNon 74-78-0280IEKRDyqnzdWyeihbssu Clinic [facility] Basic metabolic 2000 panelon 24-26-9922Ciqvk gap [Moles/Vol]13 mmol/LNormal8-15 [facility] on above:Order Comment: Specimen Type: BLOOD SPECIMENOrdering Facility: [facility] Address:[address] [place], [place] [address]Performed By: #### 16123-0 ####[facility] LABCLIA [id number] [place], [place] [address]Mecrtpp [Mass/Vol]9.2 mg/dLNormal8.5-10.2CUniversity Hospitals [facility] Center on above: Order Comment: Specimen Type: BLOOD SPECIMENOrdering Facility: [facility] Address:[address] [place], [place] [address]Performed By: #### 36118- 2 ####LONDONNMYARELI [facility] LABCLIA [id number] [place], [place] [address]Dyscmoqs [Moles/Vol]100 mmol/EHtctxz19-321CiervxyzzPremier Health At[facility] Medical Center on above:Order Comment: Specimen Type: BLOOD SPECIMENOrdering Facility: [facility] Address:[address] [place], [place] [address]Performed By: #### 77280-3 ####[facility] LABCLIA [id number] [place], [place] [address]FU6 [Moles/Vol] 24 mmol/VKgfech46-74BjoeaxphvPremier Health Atrium Medical Center on above:Order Comment: Specimen Type: BLOOD SPECIMENOrdering Facility: [facility] Address:[address] [place], [place] [address]Performed By: #### 20308-5 ####[facility] LABCLIA [id number] [place], [place] [address]Jmlvlnixsx [Mass/Vol]1.71 mg/dLHigh0.73-1.22[facility] on above:Order Comment: Specimen Type: BLOOD SPECIMENOrdering Facility: [facility] Address:[address] [place], [place] [address]Performed By: #### 67120-8 ####[facility] LABCLIA [id number] [place], [place] [address]Uzmqgahlpe and Glomerular filtration rate.predicted panel (S/P/Bld)42 mL/min/1.73m???Low>=60 [facility] on above:Order Comment: Specimen Type: BLOOD SPECIMENOrdering Facility: [facility] Address:[address] [place], [place] [address]Result Comment: Estimated Glomerular Filtration Rate (eGFR) is calculated using the 2020 CKD-EPI creatinine equation. This equation utilizes serum creatinine, sex, and age as parameters. The creatinine assay has traceable calibration to isotope dilution-mass spectrometry. Refer to KDIGO guidelines for clinical interpretation. In patients with unstable renal function, e.g. those with acute kidney injury, the eGFR may not accurately reflect actual GFR.Performed By: #### 45132-7 ####[facility] LABCLIA [id number] [place], [place] [address]Njosonp [Mass/Vol]107 mg/lADreq32-73ZnbxjclfdPremier Health Atrium Medical Center on above:Order Comment: Specimen Type: BLOOD SPECIMENOrdering Facility: [facility] Address:[address] [place], [place] [address]Result Comment: The [place] Diabetes Association (ADA) provides guidance for cutoff [...] Standards of Medical Care in Diabetes 2016, [place] [employer]. Diabetes Care. 2016.39(Suppl 1).Performed By: #### 83025-4 ####[facility] LABCLIA [id number] [place], [place] [address]Goskkaenm [Moles/Vol]4.9 mmol/LNormal3.7-5.1CUniversity Hospitals [facility] on above: Order Comment: Specimen Type: BLOOD SPECIMENOrdering Facility: [facility] Address:[address] [place], [place] [address]Performed By: #### 46896- 2 ####[facility] LABCLIA [id number] [place], [place] [address]Ntanvr [Moles/Vol]137 mmol/KGtwjal023-947TtfaocuzkPremier Health Atrium Medical Center on above:Order Comment: Specimen Type: BLOOD SPECIMENOrdering Facility: [facility] Address:[address] [place], [place] [address]Performed By: #### 04384-0 ####[facility] LABIA [id number] [place], [place] [address]Meqf nitrogen [Mass/Vol]53 mg/dLHigh9-24[facility] on above:Order Comment: Specimen Type: BLOOD SPECIMENOrdering Facility: [facility] Address:[address] [place], [place] [address]Performed By: #### 39792-5 ####[facility] LABIA [id number] [place] [address] CBC panel Auto (Bld)on 47-17-9102Oomeldzvqdn distribution width (RBC) [Ratio] 15.8 %High11.5-15.0[facility] on above:Order Comment: Specimen Type: BLOOD SPECIMENOrdering Facility: [facility] Address:[address] [place], [place] [address]Performed By: #### 95163-3 ####[facility] LABCLIA [id number] [place], [place] [address]Utgqgtzagr (Bld) [Volume fraction]37.8 %Low39.0-51.0 [facility] on above:Order Comment: Specimen Type: BLOOD SPECIMENOrdering Facility: [facility] Address:[address] [place], [place] [address]Performed By: #### 09613-2 ####[facility] LABCLIA [id number] [place], [place] [address]Nxvxurndic (Bld) [Mass/Vol]12.0 g/dLLow13.0-17.0[facility] on above:Order Comment: Specimen Type: BLOOD SPECIMENOrdering Facility: [facility] Address:[address] [place], [place] [address]Performed By: #### 51082- 2 ####[facility] LABCLIA [id number] [place], [place] [address]TJM (RBC) [Entitic mass]31.3 hcUkvbfi89.0-34.0[facility] on above:Order Comment: Specimen Type: BLOOD SPECIMENOrdering Facility: [facility] Address:[address] [place], [place] [address]Performed By: #### 07212-0 ####[facility] LABCLIA [id number] [place], [place] [address]GASI (RBC) [Mass/Vol]31.7 g/kMGmburc72.5-36.0[facility] on above: Order Comment: Specimen Type: BLOOD SPECIMENOrdering Facility: [facility] Address:[address] [place], [place] [address]Performed By: #### 52350- 2 ####[facility] LABCLIA [id number] [place], [place] [address]VXQ (RBC) [Entitic vol]98.4 jSQinclb54.0-100.0[facility] on above:Order Comment: Specimen Type: BLOOD SPECIMENOrdering Facility: [facility] Address:[address] [place], [place] [address]Performed By: #### 60911-7 ####[facility] LABCLIA [id number] [place], [place] [address]Rykiuwjfw RBC (Bld) [#/Vol]10*3/uLNormal<0.01[facility] on above:Order Comment: Specimen Type: BLOOD SPECIMENOrdering Facility: [facility] Address:[address] [place], [place] [address]Performed By: #### 74327- 2 ####[facility] LABCLIA [id number] [place], [place] [address]Pkomeoqk mean volume (Bld) [Entitic vol]9.9 fLNormal 9.0-12.7CUniversity Hospitals [facility] on above:Order Comment: Specimen Type: BLOOD SPECIMENOrdering Facility: [facility] Address:[address] [place], [place] [address]Performed By: #### 86743-3 ####[facility] LABCLIA [id number] [place], [place] [address]Pjzxwxemk (Bld) [#/Vol]250 10*3/rSIeiwlr146-492PtimbnenbPremier Health Atrium Medical Center on above: Order Comment: Specimen Type: BLOOD SPECIMENOrdering Facility: [facility] Address:[address] [place], [place] [address]Performed By: #### 00828- 2 ####[facility] LABCLIA [id number] [place], [place] [address]PJN (Bld) [#/Vol]3.84 10*6/uLLow4.20-6.00[facility] on above:Order Comment: Specimen Type: BLOOD SPECIMENOrdering Facility: [facility] Address:[address] [place], [place] [address]Performed By: #### 99809-3 ####[facility] LABIA [id number] [place], [place] [address]BDA (Bld) [#/Vol]11.59 10*3/uL High3.70-11.00[facility] on above:Order Comment: Specimen Type: BLOOD SPECIMENOrdering Facility: [facility] Address:[address] [place], [place] [address]Performed By: #### 31818-3 ####[facility] LABIA [id number] [place] [address] CNPNon 12-59-9439MNNZPjfrzpFnwaozssl Clinic ClevelandOPERATIVE NOon 09-04-2024 OPERATIVE NONormalUc West Chester HospitalComprehensive metabolic 2000 panelon 23-89-8553Tqbckob [Mass/Vol]4.1 g/dLNormal3.9-4.9CKindred Healthcare Comment on above:Order Comment: Specimen Type: BLOOD SPECIMENOrdering Facility: [facility] Address:[address] [place] [address] Performed By: #### 96916-7, 79273-3 ####[facility] LABCLIA [id number] [place], [place] [address]PPF [Catalytic activity/Vol]140 U/CElhr88-909GmocbqaepPremier Health Atrium Medical Center on above:Order Comment: Specimen Type: BLOOD SPECIMENOrdering Facility: [facility] Address:[address] [place], [place] [address]Performed By: #### 36108- 9, 60853-9 ####[facility] LABIA [id number] [place], [place] [address]SAX [Catalytic activity/Vol]12 U/RRhiuno33-00 [facility] on above:Order Comment: Specimen Type: BLOOD SPECIMENOrdering Facility: [facility] Address:[address] [place], [place] [address]Performed By: #### 78289-1, 44292-7 ####[facility] LABCLIA [id number] [place], [place] [address]Chtcj gap [Moles/Vol]18 mmol/LHigh8-15[facility] on above:Order Comment: Specimen Type: BLOOD SPECIMENOrdering Facility: [facility] Address:[address] [place], [place] [address]Performed By: #### 47517- 9, 73949-9 ####[facility] LABCLIA [id number] [place], [place] [address]AGZ [Catalytic activity/Vol]27 U/MOzaipu84-82 [facility] on above:Order Comment: Specimen Type: BLOOD SPECIMENOrdering Facility: [facility] Address:[address] [place], [place] [address]Performed By: #### 18896-2, 69491-0 ####[facility] LABCLIA [id number] [place] [address] Bilirubin [Mass/Vol]0.6 mg/dLNormal0.2-1.3CUniversity [facility]als [facility] on above:Order Comment: Specimen Type: BLOOD SPECIMENOrdering Facility: [facility] Address:[address] [place], [place] [address]Performed By: #### 52254-9, 94681-8 ####[facility] LABCLIA [id number] [place], [place] [address]Cvuhbpa [Mass/Vol]9.1 mg/dLNormal8.5-10.2 [facility] on above:Order Comment: Specimen Type: BLOOD SPECIMENOrdering Facility: [facility] Address:[address] [place], [place] [address]Performed By: #### 07663-2, 83212-6 ####[facility] LABCLIA [id number] [place], [place] [address]Nxzaqkqf [Moles/Vol]96 mmol/YFuh39-960LjddvzblzPremier Health Atrium Medical Center on above:Order Comment: Specimen Type: BLOOD SPECIMENOrdering Facility: [facility] Address:[address] [place] [address]Wyxjnrhnq By: #### 94620- 9, 17540-6 ####[facility] LABCLIA [id number] [place], [place] [address]DV7 [Moles/Vol]28 mmol/FLjfdps50-72BpyxvivswPremier Health Atrium Medical Center on above:Order Comment: Specimen Type: BLOOD SPECIMENOrdering Facility: [facility] Address:[address] [place] [address]Qdduxoilv By: #### 45584-7, 39701-9 ####[facility] LABCLIA [id number] [place], [place] [address]Vskqtmcedg [Mass/Vol] 1.72 mg/dLHigh0.73-1.22[facility] on above:Order Comment: Specimen Type: BLOOD SPECIMENOrdering Facility: [facility] Address:[address] [place] [address]Mqkqcgmkk By: #### 94290-2, 07200-7 ####[facility] LABCLIA [id number] [place], [place] [address]Gukxzxklue and Glomerular filtration rate.predicted panel (S/P/Bld)41 mL/min/1.73m???Low>=60[facility] on above: Order Comment: Specimen Type: BLOOD SPECIMENOrdering Facility: [facility] Address:[address] [place] [address]Yavifj Comment: Estimated Glomerular Filtration Rate (eGFR) is [...] not accurately reflect actual GFR.Performed By: #### 33620-3, 83253-1 ####[facility] LABCLIA [id number] [place], [place] [address]Gxridyd [Mass/Vol]189 mg/zVTqko44-05FhluloqqyPremier Health Atrium Medical Center on above:Order Comment: Specimen Type: BLOOD SPECIMENOrdering Facility: [facility] Address:[address] [place], [place] [address]Result Comment: The [place] [employer] (ADA) provides guidance for cutoff [...] Standards of Medical Care in Diabetes 2016, [place] [employer]. Diabetes Care. 2016.39(Suppl 1).Performed By: #### 43010- 9, 44826-3 ####[facility] LABCLIA [id number] [place], [place] [address]Bwyhfwyjy [Moles/Vol]3.1 mmol/LLow3.7-5.1CUniversity Hospitals [facility] on above:Order Comment: Specimen Type: BLOOD SPECIMENOrdering Facility: [facility] Address:[address] [place], [place] [address]Performed By: #### 00571-5, ####[facility] LABCLIA [id number] [place], [place] [address]Wiwqexq [Mass/Vol]7.4 g/dLNormal6.3-8.0[facility] on above:Order Comment: Specimen Type: BLOOD SPECIMENOrdering Facility: [facility] Address:[address] [place], [place] [address]Performed By: #### 46697- 9, 86850-7 ####[facility] LABCLIA [id number] [place], [place] [address]Klycmf [Moles/Vol]142 mmol/VHxyjev546-475YompxnnsdUc West Chester HospitalComment on above:Order Comment: Specimen Type: BLOOD SPECIMENOrdering Facility: [facility] Address:[address] [place], [place] [address]Performed By: #### 38388-6, 14951-5 ####[facility] LABCLIA [id number] [place], [place] [address]Psda nitrogen [Mass/Vol]45 mg/dLHigh9-24Uc West Chester HospitalComcaro center on above: Order Comment: Specimen Type: BLOOD SPECIMENOrdering Facility: [facility] Address:[address] [place], [place] [address]Performed By: #### 49135- 9, 03879-7 ####[facility] LABCLIA [id number] [place], [place] [address]Ehpbiqzmiu - Chemistry and Chemistry - challengeon 69-11-2163Uvssscd [Mass/Vol]4.1 g/dL3.9-4.9[facility] NorthALP [Catalytic activity/Vol]140 U/UWzsq93-897QakdyurqqPremier Health Miami Valley Hospital NorthALT [Catalytic activity/Vol]12 U/R93-55NiwtkjociPremier Health Miami Valley Hospital NorthAST [Catalytic activity/Vol]27 U/K85-92FhxcvhhshPremier Health Miami Valley Hospital NorthBilirubin [Mass/Vol]0.6 mg/dL0.2-1.3FSelect Medical Specialty Hospital - Cleveland-FairhillCalcium [Mass/Vol]9.1 mg/dL8.5-10.2FSelect Medical Specialty Hospital - Cleveland-FairhillChloride [Moles/Vol]96 mmol/LLow 98-107Prem[facility] NorthCO2 [Moles/Vol]28 mmol/B91-36DemlshcxrPremier Health Miami Valley Hospital NorthCreatinine [Mass/Vol]1.72 mg/dLHigh0.73-1.22[facility] NorthGlucose [Mass/Vol]189 mg/tUNryj94-76FyjchjoeyPremier Health Miami Valley Hospital NorthComment on above:The [place] [employer] (ADA) provides guidance for cutoff [...] diabetes.Reference: Standardsof Medical Care in Diabetes 2016, [place] [employer]. Diabetes Care. 2016.39(Suppl 1).Magnesium [Mass/Vol]2.2 mg/dL 1.7-2.3FSelect Medical Specialty Hospital - Cleveland-FairhillPotassium [Moles/Vol]3.1 mmol/LLow 3.7-5.1FParma Community General Hospitalodium [Moles/Vol]142 mmol/T812-247 [facility] NorthUrea nitrogen [Mass/Vol]45 mg/dLHigh9-24 [facility] NorthMagnesium SerPl-mCncon 44-70-2179Tsterowlr [Mass/Vol]2.2 mg/dLNormal1.7-2.3CKindred HealthcareComment on above:Order Comment: Specimen Type: BLOOD SPECIMENOrdering Facility: [facility] Address:[address] [place], [place] [address]Performed By: #### 45656- 9, 33646-3 ####[facility] LABCLIA [id number] [place], [place] [address]Wy Panel Informationon 77-39-6782Yvuknwtbo GFR (CKD-EPI)41 mL/min/1.73m???Low>=60[facility] Hospital NorthComment on above:Estimated Glomerular Filtration Rate (eGFR) is [...] actual GFR.Protein [Mass/volume] in Serum or Plasmaon 68-42-9425Vshblbx [Mass/Vol]Protein [Mass/volume] in Serum or Plasma6.3-8.0Clermont County Hospitalerum or plasma anion gap determinationon 48-14-7123Abgci gap [Moles/Vol]Serum or plasma anion gap determinationHigh8-15[facility] NorthCNPNon 30-15-9939RMIRDhlsxlZjsgtbtam Clinic ClevelandBasophils Auto (Bld) [#/Vol]on 88-65-5786Eztywexof (Bld) [#/Vol]Automated basophil count0.0-0.1FSelect Medical Specialty Hospital - Cleveland-FairhillBasophils/100 WBC Auto (Bld)on 93-35-0014Mjiecoget/100 WBC (Bld)Automated basophil %0.2-2.0[facility] Eosinophils/100 WBC Auto (Bld)on 48-75-1406Wjgwlurtgye/100 WBC (Bld)Automated eosinophil %Low0.9-7.0[facility] NorthErythrocyte distribution width Auto (RBC) [Ratio]on 71-70-3010Rnmmdufsfkg distribution width (RBC) [Ratio]Erythrocyte distribution width [Ratio] by Automated slfvpDait88.0-15.0 [facility] NorthEstimated glomerular filtration rate (GFR) non- Americanon 64-49-7469NUR/1.73 sq M.predicted among non-blacks MDRD (S/P/Bld) [Vol rate/Area]Estimated glomerular filtration rate (GFR) non- AmericanLow>=60 mL/min/1.73m 2FSelect Medical Specialty Hospital - Cleveland-FairhillGlobulin Calc (S) [Mass/Vol]on 32-09-0359Bhbviywy (S) [Mass/Vol]Serum globulin measurement by calculation (mass/volume)[facility] NorthHematocrit Auto (Bld) [Volume fraction]on 52-15-0896Qzzvxcaqla (Bld) [Volume fraction]Hematocrit [Volume Fraction] of Blood by Automated yztfrPqb32.0-54.0[facility] NorthHemoglobin [Mass/volume] in Bloodon 49-20-4085Kehcrrtopk (Bld) [Mass/Vol]Hemoglobin [Mass/volume] in LfadoMbi41.0-18.0[facility] NorthLaboratory - Chemistry and Chemistry - challengeon 08-31-2024 Potassium [Moles/Vol]3.4 mmol/LLow3.5-5.1FSelect Medical Specialty Hospital - [place]-Fairhill Albumin [Mass/Vol]3.3 g/dLLow3.4-5.0[facility] NorthALP [Catalytic activity/Vol]130 U/VKyos72-917MaphgtxeyPremier Health Miami [facility] Hospital NorthALT [Catalytic activity/Vol]13 U/ZXuu94-96PtbzeotvwPremier Health [facility] Hospital NorthAST [Catalytic activity/Vol]25 U/R97-44OwmjxhhtwPremier Health Miami Valley Hospital NorthBilirubin [Mass/Vol]0.7 mg/dL0.2-1.0[facility] NorthCalcium [Mass/Vol]9.0 mg/dL8.5-10.1FSelect Medical Specialty Hospital - Cleveland-FairhillChloride [Moles/Vol]101 mmol/L 98-107Prem[facility] NorthCO2 [Moles/Vol]34.5 mmol/LHigh21.0-32.0 [facility] NorthCreatinine [Mass/Vol]1.68 mg/dLHigh0.70-1.30 [facility] NorthGFR/1.73 sq M.predicted MDRD (S/P/Bld) [Vol rate/Area]49 mL/min/{1.73_m2}Low>=60 mL/min/1.73m 2FSelect Medical Specialty Hospital - Cleveland-FairhillGlucose [Mass/Vol]113 mg/hBClwr87-820PdjcreizoPrem[facility] Health [facility] North Magnesium [Mass/Vol]2.2 mg/dL1.8-2.4FSelect Medical Specialty Hospital - Cleveland-FairhillProtein [Mass/Vol]7.7 g/dL6.4-8.2FParma Community General Hospitalodium [Moles/Vol]143 mmol/E189-699DfhjnfzjbPremier Health Miami [facility] Hospital NorthUrea nitrogen [Mass/Vol]48.0 mg/dL High7.0-18.0[facility] NorthUrea nitrogen/Creatinine [Mass ratio]28.6 mg/mgPremier Health Miami Valley Hospital NorthLaboratory - Hematology and Cell countson 88-34-1971Ppqgggou granulocytes/100 WBC (Bld)0.5 %0.0-0.5FSelect Medical Specialty Hospital - Cleveland-FairhillLeukocytes [#/volume] corrected for nucleated erythrocytes in Blood by Automated counon 06-08-0921AGQ corrected for nucl RBC Auto (Bld) [#/Vol]Leukocytes [#/volume] corrected for nucleated erythrocytes in Blood by Automated coun4.0-11.0[facility] NorthLymphocytes Auto (Bld) [#/Vol]on 26-76-4142Vwceksszbwo (Bld) [#/Vol]Lymphocytes [#/volume] in Blood by Automated countLow1.2-3.8[facility] Lymphocytes/100 WBC Auto (Bld)on 50-53-7175Hzlmamgffyw/100 WBC (Bld) Lymphocytes/100 leukocytes in Blood by Automated zrftfOss19.5-60.0[facility] Medical CenterH Auto (RBC) [Entitic mass]on 71-41-9824RMW (RBC) [Entitic mass]MCH [Entitic mass] by Automated count25.9-34.0[facility] NorthMCHC Auto (RBC) [Mass/Vol]on 13-17-0829WVEX (RBC) [Mass/Vol]MCHC [Mass/volume] by Automated count29.9-35.2FSelect Medical Specialty Hospital - Cleveland-FairhillMCV Auto (RBC) [Entitic vol]on 69-72-2245EXA (RBC) [Entitic vol]MCV [Entitic volume] by Automated higncIpvv71.0-94.0[facility] NorthMonocytes Auto (Bld) [#/Vol]on 28-50-2859Pnzrbyyci (Bld) [#/Vol]Automated blood monocyte count High0.3-0.8[facility] NorthMonocytes/100 WBC Auto (Bld)on 05-88-5744Qsilsrocq/100 WBC (Bld)Automated monocyte %High1.7-12.0[facility] NorthNeutrophils Auto (Bld) [#/Vol]on 11-50-2183Mxxrrkpgjge (Bld) [#/Vol]Neutrophils [#/volume] in Blood by Automated count1.4-6.5FSelect Medical Specialty Hospital - Cleveland-FairhillNeutrophils/100 WBC Auto (Bld)on 08-31-2024 Neutrophils/100 WBC (Bld)Automated neutrophil %43.0-75.0[facility] NorthNo Panel Informationon 33-29-8726Awmqrpiarmv # (Auto)0.0 10 3/uL 0.0-0.7FSelect Medical Specialty Hospital - Cleveland-FairhillImmature Granulocyte # (Auto)0.03 10 3/uL0.00-0.03[facility] NorthPlatelet mean volume Auto (Bld) [Entitic vol]on 85-93-9281Fqbrmswb mean volume (Bld) [Entitic vol]Platelet mean volume [Entitic volume] in Blood by Automated count9.5-13.5FSelect Medical Specialty Hospital - Cleveland-FairhillPlatelets Auto (Bld) [#/Vol]on 71-88-2042Aepjiwtdl (Bld) [#/Vol] Platelets [#/volume] in Blood by Automated nfohr327-208SoazjdhqcPremier Health Miami Valley Hospital NorthRBC Auto (Bld) [#/Vol]on 97-57-7550IXO (Bld) [#/Vol]Erythrocytes [#/volume] in Blood by Automated countLow4.70-6.10Clermont County Hospitalerum or plasma albumin/globulin mass ratioon 00-62-3997Ifrspbz/Globulin [Mass ratio]Serum or plasma albumin/globulin mass ratioClermont County Hospitalerum or plasma anion gap determinationon 25-69-8968Cuflz gap [Moles/Vol]Serum or plasma anion gap determinationPremier Health Miami Valley Hospital NorthActivated partial thromboplastin time (aPTT) in platelet poor plasma by coagulation aon 95-63-9930jDHK Coag (PPP) [Time]Activated partial thromboplastin time (aPTT) in platelet poor plasma by coagulation a22.3-36.2FSelect Medical Specialty Hospital - Cleveland-FairhillBasophils Auto (Bld) [#/Vol]on 20-38-0489Mjjhmcnul (Bld) [#/Vol] Automated basophil count0.0-0.1FSelect Medical Specialty Hospital - Cleveland-FairhillBasophils/100 WBC Auto (Bld)on 54-13-2380Dmtqflucp/100 WBC (Bld)Automated basophil %0.2-2.0 [facility] NorthEosinophils/100 WBC Auto (Bld)on 08-30-2024 Eosinophils/100 WBC (Bld)Automated eosinophil %Low0.9-7.0[facility] NorthErythrocyte distribution width Auto (RBC) [Ratio]on 08-30-2024 Erythrocyte distribution width (RBC) [Ratio]Erythrocyte distribution width [Ratio] by Automated jfofpFaxh58.0-15.0[facility] Hematocrit Auto (Bld) [Volume fraction]on 27-58-6397Bxgjmoaccb (Bld) [Volume fraction]Hematocrit [Volume Fraction] of Blood by Automated ryozpEcv22.0-54.0 [facility] NorthHemoglobin [Mass/volume] in Bloodon 08-30-2024 Hemoglobin (Bld) [Mass/Vol]Hemoglobin [Mass/volume] in MdhzaVgs65.0-18.0 [facility] NorthINR in Platelet poor plasma by Coagulation assayon 48-08-6666KHZ Coag (PPP) [Relative time]INR in Platelet poor plasma by Coagulation assayPremier Health Miami Valley Hospital NorthComment on above:DESIRED INR:2.0-3.0 CONDITIONS NOT LISTED BELOW2.5-3.5 FOR PROSTHETIC HEART VALVE REPLACEMENT2.5-3.5 RECURRENT THROMBOSISLaboratory - Chemistry and Chemistry - challengeon 65-84-3210Hlppbbuoj Ql (U)NegativeNEGATIVEPremier Health Miami [facility] Hospital NorthGlucose (U) [Mass/Vol]NegativeNEGATIVEPremier Health Miami [facility] Hospital North Ketones Ql (U)NegativeNEGSelect Medical TriHealth Rehabilitation HospitalpH (U)6.5 [pH] 5.0-9.0Clermont County Hospitalpecific gravity (U) [Rel density] <=1.869Hfafzbax8.005-1.025Prem[facility] NorthUrobilinogen Qn (U) 0.2 {Guido'U}/dL0.2-1.0[facility] NorthNatriuretic peptide B (Bld) [Mass/Vol]239.0 pg/mL<=900.0[facility] NorthLaboratory - Hematology and Cell countson 02-63-0789Uyvyeted granulocytes/100 WBC (Bld)0.5 % 0.0-0.5FSelect Medical Specialty Hospital - Cleveland-FairhillLaboratory - Microbiology and Antimicrobial susceptibilityon 31-03-0461FDOE-CoV-2 (COVID-19) RNA BRYN+probe Ql (Unsp spec)NegativeNEGATIVEPremier Health Miami [facility] Hospital NorthComment on above: This test has not been [...] authorization is revoked sooner.Laboratory - Specimen informationon 95-10-4852Xrudgkqhsm (U)CLEARCLEMercy Health Urbana HospitalColor (U)LT. YELLOWYELSelect Medical Specialty Hospital - CincinnatiLaboratory - Urinalysison 70-62-1581Vbksfijpf esterase Test strip Ql (U)NegativeNEGATIVE [facility] NorthMucus Ql (Urine sed)NONE SEENNONE SEENPremier Health Miami [facility] Hospital NorthNitrite Ql (U)NegativeNEGATIVEPrem[facility] Health [facility] Hospital NorthProtein Ql (U)NegativeNEG/TRACEPrem[facility] Health [facility] North Leukocytes [#/volume] corrected for nucleated erythrocytes in Blood by Automated counon 80-17-3106YEE corrected for nucl RBC Auto (Bld) [#/Vol]Leukocytes [#/volume] corrected for nucleated erythrocytes in Blood by Automated coun 4.0-11.0[facility] NorthLymphocytes Auto (Bld) [#/Vol]on 31-92-3619Modqiempowy (Bld) [#/Vol]Lymphocytes [#/volume] in Blood by Automated count1.2-3.8[facility] NorthLymphocytes/100 WBC Auto (Bld)on 32-47-5764Ozuzfuqxsvp/100 WBC (Bld)Lymphocytes/100 leukocytes in Blood by Automated lajazYjx62.5-60.0[facility] NorthMCH Auto (RBC) [Entitic mass]on 06-37-5338PRH (RBC) [Entitic mass]MCH [Entitic mass] by Automated count25.9-34.0[facility] Medical CenterHC Auto (RBC) [Mass/Vol]on 88-80-8039ZDXT (RBC) [Mass/Vol]MCHC [Mass/volume] by Automated count29.9-35.2FSelect Medical Specialty Hospital - Cleveland-FairhillMCV Auto (RBC) [Entitic vol]on 45-33-0848MES (RBC) [Entitic vol]MCV [Entitic volume] by Automated countHigh 80.0-94.0[facility] NorthMonocytes Auto (Bld) [#/Vol]on 62-42-1171Qernxvfdv (Bld) [#/Vol]Automated blood monocyte countHigh0.3-0.8 [facility] NorthMonocytes/100 WBC Auto (Bld)on 08-30-2024 Monocytes/100 WBC (Bld)Automated monocyte %1.7-12.0[facility] NorthNeutrophils Auto (Bld) [#/Vol]on 68-24-5017Nrnqoicfcje (Bld) [#/Vol] Neutrophils [#/volume] in Blood by Automated count1.4-6.5FSelect Medical Specialty Hospital - Cleveland-FairhillNeutrophils/100 WBC Auto (Bld)on 35-99-9232Geqcrxksikn/100 WBC (Bld)Automated neutrophil %43.0-75.0[facility] NorthNo Panel Informationon 92-89-0958Ogftr BacteriaNONE SEEN #/HPFNONE [facility] SystemUrine Culture ReflexedNOPremier Health Miami Valley Hospital NorthUrine Occult BloodNegativeNEGATIVEPrem[facility] Health [facility] Hospital NorthUrine Other Casts NONE SEEN #/LPFNONE [facility] SystemUrine Other Crystals None Seen #/HPFNone [facility] SouthUrine RBC0-2 #/HPF0-2 [facility] NorthUrine Squamous Epithelial CellsNONE SEEN #/LPF NONE/RAREPremier Health Miami Valley Hospital NorthUrine WBCNONE SEEN #/HPFNONE SEEN [facility] NorthBedside Influenza Type A AntigenNegative [facility] NorthComment on above:Negative for Flu A protein antigen. Infection due to Flu Acannot be ruled out. Flu A antigen in thesample may bebelow the detection limit of the test.Bedside Influenza Type B Antigen NegativePremier Health Miami Valley Hospital NorthComment on above:Negative for Flu B protein antigen. Infection due to Flu Bcannot be ruled out. Flu B antigen in the sample may bebelow the detection limit of the test.C-Reactive Protein, Quantitative4.85 mg/dLHigh<=0.50[facility] NorthEosinophils # (Auto)0.0 10 3/uL0.0-0.7FSelect Medical Specialty Hospital - Cleveland-FairhillImmature Granulocyte # (Auto)0.04 10 3/uLHigh0.00-0.03[facility] NorthTroponin I High Clvuzjyrnzs77.0 pg/mL4.0-76.1FSelect Medical Specialty Hospital - Cleveland-FairhillComment on above: CUT-OFF POINTS HAVE BEEN ESTABLISHED [...] volume [Entitic volume] in Blood by Automated count9.5-13.5FSelect Medical Specialty Hospital - Cleveland-FairhillPlatelets Auto (Bld) [#/Vol]on 94-71-8305Wqjpthzyl (Bld) [#/Vol]Platelets [#/volume] in Blood by Automated lneph916-961XivcgiqahPremier Health Miami Valley Hospital NorthProthrombin time (PT) on 17-76-9668AB Coag (PPP) [Time]Prothrombin time (PT)High9.0-11.6FSelect Medical Specialty Hospital - Cleveland-FairhillRBC Auto (Bld) [#/Vol]on 46-43-7574GYU (Bld) [#/Vol] Erythrocytes [#/volume] in Blood by Automated countLow4.70-6.10[facility] NorthComprehensive metabolic 2000 panelOrdered By: Solange Delgado on 42-75-7615Cboidgp [Mass/Vol]4 g/dL3.9 - 4.9 g/dLCleveland ClinicALP [Catalytic activity/Vol]126 U/LHigh38 - 113 U/LCleveland ClinicALT [Catalytic activity/Vol]10 U/L10 - 54 U/LCleveland ClinicAnion gap [Moles/Vol]10 mmol/L8 - 15 mmol/LCleveland ClinicAST [Catalytic activity/Vol]22 U/L14 - 40 U/LCleveland ClinicBilirubin [Mass/Vol]0.6 mg/dL0.2 - 1.3 mg/dLCleadams county regional medical center ClinicCalcium [Mass/Vol]8.9 mg/dL8.5 - 10.2 mg/dLCleadams county regional medical center ClinicChloride [Moles/Vol]93 mmol/L Low98 - 107 mmol/LCleveland ClinicCO2 [Moles/Vol]33 mmol/LHigh22 - 30 mmol/L [facility] ClinicCreatinine [Mass/Vol]1.66 mg/dLHigh0.73 - 1.22 mg/dLSavannah ClinicGFR/1.73 sq M.predicted among non-blacks MDRD (S/P/Bld) [...] eGFRmay not accurately reflect actual GFR.Glucose [Mass/Vol]134 mg/sRPtga12 - 99 mg/dL [facility] CenterComment on above:The [place] [employer] (ADA) provides guidance for cutoff [...] Standards of Medical Care in Diabetes 2016, [place] [employer]. Diabetes Care. 2016.39(Suppl 1). Interpretation and review of laboratory resultsAbnormalCleveland ClinicPotassium [Moles/Vol]2.7 mmol/LLow3.7 - 5.1 mmol/LCpromedica memorial hospital ClinicProtein [Mass/Vol]7.4 g/dL6.3 - 8.0 g/dLSt. Vincent Hospitalodium [Moles/Vol]136 mmol/L136 - 144 mmol/L [facility] CenterUrea nitrogen [Mass/Vol]40 mg/dLHigh9 - 24 mg/dLMercy Health Lorain HospitalComprehensive metabolic 2000 panelon 78-20-1878Omulvus [Mass/Vol]4.0 g/dLNormal3.9-4.9CUniversity Hospitals [facility] on above:Order Comment: Specimen Type: BLOOD SPECIMENOrdering Facility: [facility] Address:[address] [address] [place], [place] [address]Performed By: #### 18573- 9, 67160-7 ####[facility] LABCLIA [id number] [place], [place] [address]FUI [Catalytic activity/Vol]126 U/AFgsu51-750 [facility] on above:Order Comment: Specimen Type: BLOOD SPECIMENOrdering Facility: [facility] Address:[address] [place], [place] [address]Performed By: #### 42822-8, 37566-5 ####[facility] LABCLIA [id number] [place], [place] [address]NVB [Catalytic activity/Vol]10 U/GBudtkg94-88LvfieozzzPrem[facility] on above:Order Comment: Specimen Type: BLOOD SPECIMENOrdering Facility: [facility] Address:[address] [place], [place] [address]Performed By: #### 27758-2, 36413-3 ####[facility]ITALYARELI [facility] LABCLIA [id number] [facility]PROVID[facility] [place], [place] [address]Weofp gap [Moles/Vol]10 mmol/LNormal8-15 [facility] on above:Order Comment: Specimen Type: BLOOD SPECIMENOrdering Facility: [facility] Address:[address] [place], [place] [address]Performed By: #### 48188-9, 09221-2 ####[facility] LABCLIA [id number] [place], [place] [address]VGH [Catalytic activity/Vol]22 U/GBepyfl10-58KvssbpcbjPrem[facility] Health [facility] on above:Order Comment: Specimen Type: BLOOD SPECIMENOrdering Facility: [facility] Address:[address] [place], [place] [address]Performed By: #### 23938-7, 59729-0 ####[facility]ITALYARELI [facility] LABCLIA [id number] [place], [place] [address]Qzsixfzrv [Mass/Vol]0.6 mg/dLNormal0.2-1.3 [facility] on above:Order Comment: Specimen Type: BLOOD SPECIMENOrdering Facility: [facility] Address:[address] [place], [place] [address]Performed By: #### 71935-4, 63545-7 ####[facility] LABCLIA [id number] [place], [place] [address]Rfhbdox [Mass/Vol]8.9 mg/dLNormal8.5-10.2CUniversity [facility] on above: Order Comment: Specimen Type: BLOOD SPECIMENOrdering Facility: [facility] Address:[address] [place], [place] [address]Performed By: #### 45643- 9, 07098-2 ####[facility] LABCLIA [id number] [place], [place] [address]Ovjulwij [Moles/Vol]93 mmol/GAxo79-137CsovfxydpPremier Health Atrium Medical Center on above:Order Comment: Specimen Type: BLOOD SPECIMENOrdering Facility: [facility] Address:[address] [place] [address]Kyebhqhrs By: #### 22311-9, ####[facility] LABCLIA [id number] [place], [place] [address]FL0 [Moles/Vol]33 mmol/JRjpk87-37SscgvkszsPremier Health At[facility] Center on above:Order Comment: Specimen Type: BLOOD SPECIMENOrdering Facility: [facility] Address:[address] [place], [place] [address]Performed By: #### 81322- 9, 96789-7 ####[facility] LABCLIA [id number] [place], [place] [address]Llzwkglefj [Mass/Vol]1.66 mg/dLHigh0.73-1.22 [facility] on above:Order Comment: Specimen Type: BLOOD SPECIMENOrdering Facility: [facility] Address:[address] [place], [place] [address]Performed By: #### 02709-9, 37018-9 ####[facility] LABCLIA [id number] [place] [address] Creatinine and Glomerular filtration rate.predicted panel (S/P/Bld)43 mL/min/1.73m???Low>=60[facility] on above:Order Comment: Specimen Type: BLOOD SPECIMENOrdering Facility: [facility] Address:[address] [place] [address]Rpzitc Comment: Estimated Glomerular Filtration Rate (eGFR) is calculated using the 2020 CKD-EPI creatinine equation. This equation utilizes serum creatinine, sex, and age as parameters. The creatinine assay has traceable calibration to isotope dilution-mass spectrometry. Refer to KDIGO guidelines for clinical interpretation. In patients with unstable renal function, e.g. those with acute kidney injury, the eGFR may not accurately reflect actual GFR.Performed By: #### 16257-4, 35632-4 ####[facility] LABCLIA [id number] [place], [place] [address]Qmwmkel [Mass/Vol]134 mg/aAYupt25-67ObjrgdfkdPremier Health Atrium Medical Center on above:Order Comment: Specimen Type: BLOOD SPECIMENOrdering Facility: [facility] Address:[address] [place], [place] [address]Result Comment: The [place] Diabetes Association (ADA) provides guidance for cutoff [...] Standards of Medical Care in Diabetes 2016, [place] [employer]. Diabetes Care. 2016.39(Suppl 1).Performed By: #### 38391- 9, 29342-6 ####[facility] LABCLIA [id number] [place], [place] [address]Lbnynsldu [Moles/Vol]2.7 mmol/LLow3.7-5.1CUniversity [facility] on above:Order Comment: Specimen Type: BLOOD SPECIMENOrdering Facility: [facility] Address:[address] [place] [address]Aptgrtdrk By: #### 84410-4, 07569-6 ####[facility] LABCLIA [id number] [place], [place] [address]Onncgjn [Mass/Vol]7.4 g/dLNormal6.3-8.0[facility] on above:Order Comment: Specimen Type: BLOOD SPECIMENOrdering Facility: [facility] Address:[address] [place], [place] [address]Performed By: #### 15770- 9, 23649-2 ####[facility] LABCLIA [id number] [place], [place] [address] [Moles/Vol]136 mmol/FQofvqz274-577EcbqrgyclUc West Chester HospitalComcaro center on above:Order Comment: Specimen Type: BLOOD SPECIMENOrdering Facility: [facility] Address:[address] [place] [address]Ayloodgov By: #### 47955-7, 64898-2 ####[facility] LABCLIA [id number] [place], [place] [address]Rqkf nitrogen [Mass/Vol]40 mg/dLHigh9-24[facility] HospitalComcaro center on above: Order Comment: Specimen Type: BLOOD SPECIMENOrdering Facility: [facility] Address:[address] [place], [place] [address]Performed By: #### 32293- 9, 44081-5 ####[facility] LABCLIA [id number] [place], [place] [address]Rhqrkxfvff - Chemistry and Chemistry - challengeon 57-21-3966Gorlhci [Mass/Vol]4.0 g/dL3.9-4.9[facility] NorthALP [Catalytic activity/Vol]126 U/QUhth40-533HqccrxdchPremier Health Miami Valley Hospital NorthALT [Catalytic activity/Vol]10 U/M78-51UlgttopdqPremier Health [facility] Hospital NorthAST [Catalytic activity/Vol]22 U/R20-19YbctcosfqPremier Health Miami Valley Hospital NorthBilirubin [Mass/Vol]0.6 mg/dL0.2-1.3FSelect Medical Specialty Hospital - Cleveland-FairhillCalcium [Mass/Vol]8.9 mg/dL8.5-10.2FSelect Medical Specialty Hospital - Cleveland-FairhillChloride [Moles/Vol]93 mmol/LLow 98-107[facility] NorthCO2 [Moles/Vol]33 mmol/ALelt81-62 [facility] NorthCreatinine [Mass/Vol]1.66 mg/dLHigh0.73-1.22 [facility] NorthGlucose [Mass/Vol]134 mg/lCTdnq32-13OelwiywfrPremier Health Miami Valley Hospital NorthComment on above:The [place] Diabetes Association (ADA) provides guidance for cutoff [...] diabetes.Reference: Standardsof Medical Care in Diabetes 2016, [place] [employer]. Diabetes Care. 2016.39(Suppl 1).Magnesium [Mass/Vol]2.4 mg/dLHigh 1.7-2.3FSelect Medical Specialty Hospital - Cleveland-FairhillPotassium [Moles/Vol]2.7 mmol/LLow 3.7-5.1FParma Community General Hospitalodium [Moles/Vol]136 mmol/R194-006 [facility] NorthTSH Qn2.030 m[IU]/L0.270-4.200[facility] NorthUrea nitrogen [Mass/Vol]40 mg/dLHigh9-24[facility] NorthMAGNESIUMon 02-94-2890Fqzfdshoy [Mass/Vol]2.4 mg/dLHigh 1.7 - 2.3 mg/dLOhiohealth Southeastern Medical CenterMagnesium SerPl-mCncon 52-42-2586Xnmnjrkgb [Mass/Vol]2.4 mg/dLHigh1.7-2.3CKindred HealthcareComment on above:Order Comment: Specimen Type: BLOOD SPECIMENOrdering Facility: [facility] Address:[address] [place], [place] [address]Wqvigeatj By: #### 99113- 9, 60474-6 ####[facility] LABCLIA [id number] [place], [place] [address]Nnvnieuiw [Mass/Vol]on 79-19-7711Cbpuvjfabpkrqy and review of laboratory resultsAbnormalCMercy Health Defiance HospitalNo Panel Informationon 85-05-4672Effmjthwj GFR (CKD-EPI)43 mL/min/1.73m???Low>=60 [facility] NorthComment on above:Estimated Glomerular Filtration Rate (eGFR) is [...] actual GFR.Protein [Mass/volume] in Serum or Plasmaon 02-90-2464Uzlmgfc [Mass/Vol]Protein [Mass/volume] in Serum or Plasma6.3-8.0 [facility]ermont County Hospitalerum or plasma anion gap determinationon 24-94-3735Htlby gap [Moles/Vol]Serum or plasma anion gap determination815 [facility] NorthTS SerPl-aCncon 13-13-5027NWM Qn2.030 m[IU]/L Normal0.270-4.200[facility] on above:Order Comment: Specimen Type: BLOOD SPECIMENOrdering Facility: [facility] Address:[address] [place], [place] [address]Performed By: #### 3016-3 ####[facility] LABIA [id number] [place] [address] [place] AMERICANo Panel Informationon 08-27-2024 [facility] HealthcareComprehensive metabolic 2000 panelon 10-99-6920Okykxnm [Mass/Vol] 4.1 g/dLNormal3.9-4.9CUniversity [facility]als [facility] on above:Order Comment: Specimen Type: BLOOD SPECIMENOrdering Facility: [facility] Address:[address] [place], [place] [address]Performed By: #### 42062-0, 3016-3, 24967-8 ####[facility] LABCLIA [id number] [place] [address] [place] OF AMERICAALP [Catalytic activity/Vol]137 U/DUhrp72-535SdnczbcsaPremier Health [facility]rium Medical Center on above:Order Comment: Specimen Type: BLOOD SPECIMENOrdering Facility: [facility] Address:[address] [place], [place] [address]Performed By: #### 93381-1, 3016-3, 00678-0 ####[facility] LABCLIA [id number] [address] [address] [place] AMERICAALT [Catalytic activity/Vol]17 U/DNxtgdz35-16AhdstonlhPremier Health Atrium Medical Center on above:Order Comment: Specimen Type: BLOOD SPECIMENOrdering Facility: [facility] Address:[address] [place], [place] [address]Performed By: #### 89706-6, 301-3, 06803-8 ####[facility] LABCLIA [id number] [address] [place] AMERICAAnion gap [Moles/Vol]13 mmol/L Normal8-15[facility] on above:Order Comment: Specimen Type: BLOOD SPECIMENOrdering Facility: [facility] Address:[address] [place], [place] [address]Performed By: #### 38152-0, 3, 36412-6 ####[facility] LABCLIA [id number] [address] [place] AMERICAAST [Catalytic activity/Vol]32 U/OKgeqyj77-91UvpzebghaPremier Health [facility] Center on above:Order Comment: Specimen Type: BLOOD SPECIMENOrdering Facility: [facility] Address:[address] [place], [place] [address]Performed By: #### 81491-9, 3015-3, 83854-8 ####[facility] LABCLIA [id number] [address] [address] [place] STATES OF AMERICABilirubin [Mass/Vol]0.7 mg/dL Normal0.2-1.3CUniversity Hospitals [facility] Center on above:Order Comment: Specimen Type: BLOOD SPECIMENOrdering Facility: [facility] Address:[address] [place], [place] [address]Performed By: #### 31796-5, 6-3, 35988-9 ####[facility] LABCLIA [id number] [address] [place] [address] [place] AMERICACalcium [Mass/Vol]9.5 mg/dLNormal 8.5-10.2CUniversity [facility]als [facility] on above:Order Comment: Specimen Type: BLOOD SPECIMENOrdering Facility: [facility] Address:[address] [place], [place] [address]Performed By: #### 42124-3, 3016-3, 36857-3 ####[facility] LABCLIA [id number] [place] [address] [place] AMERICAChloride [Moles/Vol]93 mmol/LLow 98-107[facility] on above:Order Comment: Specimen Type: BLOOD SPECIMENOrdering Facility: [facility] Address:[address] [place], [place] [address]Performed By: #### 24574-1, 3016-3, 32091-4 ####[facility] LABCLIA [id number] [place]IL[place] [address] [place] AMERICACO2 [Moles/Vol]31 mmol/EPdny14-40 [facility] on above:Order Comment: Specimen Type: BLOOD SPECIMENOrdering Facility: [facility] Address:[address] [place], [place] [address]Performed By: #### 67255-2, 3016-3, 48373-9 ####[facility] LABCLIA [id number] [place] [address] [place] AMERICACreatinine [Mass/Vol]1.61 mg/dLHigh0.73-1.22 [facility] on above:Order Comment: Specimen Type: BLOOD SPECIMENOrdering Facility: [facility] Address:[address] [place], [place] [address]Performed By: #### 69061-0, 3016-3, 48601-0 ####[facility] LABCLIA [id number] [address] [address] [place] AMERICACreatinine and Glomerular filtration rate.predicted panel (S/P/Bld)45 mL/min/1.73m???Low>=60[facility] on above:Order Comment: Specimen Type: BLOOD SPECIMENOrdering Facility: [facility] Address:[address] [place], [place] [address]Rbvcqd Comment: Estimated Glomerular Filtration Rate (eGFR) is [...] accurately reflect actual GFR. Performed By: #### 45366-8, 3016-3, 60085-0 ####[facility] LABCLIA [id number] [address] [place] OF AMERICAGlucose [Mass/Vol]99 mg/uMKmvsry77-44HnvszlpwqPremier Health [facility] Center on above:Order Comment: Specimen Type: BLOOD SPECIMENOrdering Facility: [facility] Address:[address] [place] [address]Szhmch Comment: The [place] Diabetes Association (ADA) provides guidance for cutoff [...] Standards of Medical Care in Diabetes 2016, [place] [employer]. Diabetes Care. 2016.39(Suppl 1).Performed By: #### 53345-6, 3016-3, 12309-5 ####[facility] LABIA [id number] [place] [address] [place] AMERICAPotassium [Moles/Vol]2.9 mmol/LLow3.7-5.1CUniversity Hospitals [facility] Center on above:Order Comment: Specimen Type: BLOOD SPECIMENOrdering Facility: [facility] Address:[address] [place], [place] [address]Performed By: #### 90738-3, 3016-3, 73729-1 ####[facility] LABCLIA [id number] [place] [address] [place] AMERICAProtein [Mass/Vol]8.0 g/dLNormal6.3-8.0[facility] on above:Order Comment: Specimen Type: BLOOD SPECIMENOrdering Facility: [facility] Address:[address] [place], [place] [address]Performed By: #### 79230-8, 6-3, 21778-4 ####[facility] LABCLIA [id number] AMERICASodium [Moles/Vol]137 mmol/XErtgtq227-734EqxxjvqrjPremier Health [facility] Center on above:Order Comment: Specimen Type: BLOOD SPECIMENOrdering Facility: [facility] Address:[address] [place], [place] [address]Performed By: #### 52839-2, 6-3, 40416-1 ####[facility] LABCLIA [id number] [place] [address] [place] AMERICAUrea nitrogen [Mass/Vol]30 mg/dLHigh9-24[facility] on above:Order Comment: Specimen Type: BLOOD SPECIMENOrdering Facility: [facility] Address:[address] [place], [place] [address]Performed By: #### 36509-6, 6-3, 76464-3 ####[facility] LABCLIA [id number] [address] [address] [place] OF AMERICALaboratory - Chemistry and Chemistry - challengeon 82-84-9379Iwanzmq [Mass/Vol]4.1 g/dL3.9-4.9[facility] NorthALP [Catalytic activity/Vol]137 U/CMtso44-393GjtyhvxqkPremier Health Miami [facility] Hospital NorthALT [Catalytic activity/Vol]17 U/N10-79KbvneemqdPremier Health [facility] Hospital NorthAST [Catalytic activity/Vol]32 U/I98-11YbymbofmnPremier Health Miami Valley Hospital NorthBilirubin [Mass/Vol]0.7 mg/dL0.2-1.3FSelect Medical Specialty Hospital - Cleveland-FairhillCalcium [Mass/Vol]9.5 mg/dL8.5-10.2FSelect Medical Specialty Hospital - Cleveland-FairhillChloride [Moles/Vol]93 mmol/LLow 98-107[facility] NorthCO2 [Moles/Vol]31 mmol/BIcag17-69 [facility] NorthCreatinine [Mass/Vol]1.61 mg/dLHigh0.73-1.22 [facility] NorthGlucose [Mass/Vol]99 mg/dI25-03CfeupdopjPremier Health Miami Valley Hospital NorthComment on above:The [place] Diabetes Association (ADA) provides guidance for cutoff [...] diabetes.Reference: Standardsof Medical Care in Diabetes 2016, [place] [employer]. Diabetes Care. 2016.39(Suppl 1).Magnesium [Mass/Vol]2.4 mg/dLHigh 1.7-2.3FSelect Medical Specialty Hospital - Cleveland-FairhillPotassium [Moles/Vol]2.9 mmol/LLow 3.7-5.1FParma Community General Hospitalodium [Moles/Vol]137 mmol/T139-936 [facility] NorthTSH Qn2.980 m[IU]/L0.270-4.200[facility] NorthUrea nitrogen [Mass/Vol]30 mg/dLHigh9-24[facility] NorthMagnesium SerPl-mCncon 54-15-4351Udlcwfupw [Mass/Vol]2.4 mg/dLHigh1.7-2.3CUniversity Hospitals [facility] Medical Center on above:Order Comment: Specimen Type: BLOOD SPECIMENOrdering Facility: [facility] Address:[address] [place], [place] [address]Tfvfyagia By: #### 65922-6, 3016-3, 39616-9 ####[facility] LABCLIA [id number] [address] [facility] OF HONG KONGERo Panel Informationon 45-11-2434Qjtcqiwrn GFR (CKD-EPI)45 mL/min/1.73m???Low>=60[facility] Hospital NorthComcaro center on above:Estimated Glomerular Filtration Rate (eGFR) is [...] GFR. Protein [Mass/volume] in Serum or Plasmaon 37-51-1200Hcgumum [Mass/Vol]Protein [Mass/volume] in Serum or Plasma6.3-8.0Clermont County Hospitalerum or plasma anion gap determinationon 71-00-5082Orizw gap [Moles/Vol]Serum or plasma anion gap determination8-15[facility] NorthTS SerPl-aCncon 19-95-4198QBX Qn2.980 m[IU]/LNormal0.270-4.200[facility] on above:Order Comment: Specimen Type: BLOOD SPECIMENOrdering Facility: [facility] Address:[address] [place] [address] Performed By: #### 32657-5, 3016-3, 61319-9 ####[facility] LABCLIA [id number] [address] [place] OF AMERICACNPNon 08-99-7761HEIVVwltjyRiskfdapf Clinic ClevelandCNOVon 08-18-2024 CNOVNoOhio State University Wexner Medical CenterOptical coherence tomography study reporton 02-39-8939VQVYFormerly Memorial Hospital of Wake CountyNo Panel Informationon 08-13-2024 IMPRESSION: Small, layering right-sided pleural effusion, stable in size from prior study of 07/20/2024. Sustainability Coach: ALONSO Transcribe Date/Time: Aug 13 2024 10:27A Dictated by : NOLBERTO SMITH MD This examination was interpreted and the report reviewed and electronically signed by: NOLBERTO SMITH MD on Aug 13 2024 10:32AM EST DIVISION OF RADIOLOGYRadiology Study observation (narrative)[facility] Panel InformationOrdered By: Ccf Provider on 56-17-2464Jtiotqbwj ClinicXR CHEST 1V DECUBITUS RTon 13-13-2521KB CHEST 1V DECUBITUS RTNormalCKindred HealthcareXR CHEST 2V FRONTAL/LATon 52-65-1977AW CHEST 2V FRONTAL/LATNormal [facility] HospitalXR Chest AP right lateral-decubituson 08-13-2024* * [...] spine is again noted. DIVISION OF RADIOLOGYProvider, [facility] [place] - 08/13/2024 * * *Final Report* * [...] in size from prior study of 07/20/2024. Sustainability Coach: PSCB Transcribe Date/Time: Aug 13 2024 10:27A Dictated by : NOLBERTO SMITH MD This examination was interpreted and the report reviewed and electronically signed by: NOLBERTO SMITH MD on Aug 13 2024 10:32AM EST [facility] Medical CenterXR Chest PA and Lateralon 08-13-2024* [...] spine is again noted. DIVISION OF RADIOLOGYProvider, [facility] [place] - 08/13/2024 * * *Final Report* * [...] in size from prior study of 07/20/2024. Sustainability Coach: PSCB Transcribe Date/Time: Aug 13 2024 10:27A Dictated by : NOLBERTO SMITH MD This examination was interpreted and the report reviewed and electronically signed by: NOLBERTO SMITH MD on Aug 13 2024 10:32AM EST [facility] Medical CenterCNPNon 52-56-2410RCDVExykpsFrtwpzwsb Clinic ClevelandOptical coherence tomography study reporton 10-46-2584Sbodnudmh Study observation (narrative)NOMS HealthcareCNPNon 40-76-7545XTKDJldwtqIctotlkfr Clinic [facility] CNPNon 08-54-6080ZVJLAvppmsWjtvcjttr Clinic ClevelandCNPNon 67-01-7754ZEAFZglpkf [facility]25([place])D3 SerPl-ncon 18-90-245248978865-uoysynutedheuy D3 [Mass/Vol]49.2 ng/gYNlalav89.0-80.0[facility] on above: Order Comment: Specimen Type: BLOOD SPECIMENOrdering Facility: [facility] Address:[address] [place], [place] [address]Result Comment: Classification of 25 [place] Vitamin D status:Deficiency/Insufficiency: < or = 30 ng/ml.Sufficiency/Optimal Levels: 31-80 ng/mLToxicity: > 100 ng/mL.Test performed by chemiluminescent immunoassay.Performed By: #### 1989-3 ####[facility] LABCLIA [id number] [facility] A45GTTVHJABKTRACY [place] [id number] [facility] MEDICAL CENTERBabaptist health la grange metabolic 2000 panelon 00-90-5150Zwzcy gap [Moles/Vol]7 mmol/LLow8-15[facility] on above:Order Comment: Specimen Type: BLOOD SPECIMENOrdering Facility: [facility] Address:[address] [place] [address] Performed By: #### 25161-0, 11738-7 ####[facility] LABCLIA [id number] [place], [place] [address]Xlvwquu [Mass/Vol]8.9 mg/dLNormal8.5-10.2CUniversity Hospitals [facility] Medical Center on above:Order Comment: Specimen Type: BLOOD SPECIMENOrdering Facility: [facility] Address:[address] [place], [place] [address]Performed By: #### 87480-2, 53259-6 ####[facility] LABCLIA [id number] [place], [place] [address]Jhtlemzy [Moles/Vol]105 mmol/WWnimup04-648JcpdtalnuPremier Health [facility] Center on above:Order Comment: Specimen Type: BLOOD SPECIMENOrdering Facility: [facility] Address:[address] [place], [place] [address]Performed By: #### 39996-2, 20692-0 ####[facility] LABCLIA [id number] [place], [place] [address]JU6 [Moles/Vol]27 mmol/VKsvyvk40-04BbeolzzmvPremier Health Atrium Medical Center on above:Order Comment: Specimen Type: BLOOD SPECIMENOrdering Facility: [facility] Address:[address] [place], [place] [address]Performed By: #### 15179- 9, 15298-6 ####[facility] LABCLIA [id number] [place], [place] [address]Svivqsliet [Mass/Vol]1.25 mg/dLHigh0.73-1.22 [facility] on above:Order Comment: Specimen Type: BLOOD SPECIMENOrdering Facility: [facility] Address:[address] [place], [place] [address]Performed By: #### 68763-7, ####[facility] LABIA [id number] [place] [address] Creatinine and Glomerular filtration rate.predicted panel (S/P/Bld)61 mL/min/1.73m???Normal>=60[facility] on above:Order Comment: Specimen Type: BLOOD SPECIMENOrdering Facility: [facility] Address:[address] [place], [place] [address]Result Comment: Estimated Glomerular Filtration Rate (eGFR) is [...] not accurately reflect actual GFR.Performed By: #### 20914-9, 40510-1 ####[facility] LABCLIA [id number] [place], [place] [address]Mpkezzg [Mass/Vol]141 mg/rALtqf10-44AzjbtrhcwPremier Health Atrium [facility] Center on above:Order Comment: Specimen Type: BLOOD SPECIMENOrdering Facility: [facility] Address:[address] [place] [address]Eigxin Comment: The [place] Diabetes Association (ADA) provides guidance for cutoff [...] Standards of Medical Care in Diabetes 2016, [place] [employer] Association. Diabetes Care. 2016.39(Suppl 1).Performed By: #### 63859- 9, 36436-2 ####[facility] LABCLIA [id number] [place], [place] [address]Ffhmcvxpx [Moles/Vol]4.0 mmol/LNormal3.7-5.1 [facility] on above:Order Comment: Specimen Type: BLOOD SPECIMENOrdering Facility: [facility] Address:[address] [place] [address]Alklipnbk By: #### 36143-0, ####[facility] LABCLIA [id number] [place], [place] [address]Vkzsrs [Moles/Vol]139 mmol/HYrarhq593-132XeaafdbwlPremier Health Atrium Medical Center on above: Order Comment: Specimen Type: BLOOD SPECIMENOrdering Facility: [facility] Address:[address] [place], [place] [address]Performed By: #### 14028- 9, 53340-9 ####[facility] LABCLIA [id number] [place], [place] [address]Xfve nitrogen [Mass/Vol]27 mg/dLHigh9-24[facility] on above:Order Comment: Specimen Type: BLOOD SPECIMENOrdering Facility: [facility] Address:[address] [place] [address] [place] [id number] By: #### 52226-3, 90871-4 ####[facility] LABCLIA [id number] [place], [place] [address]WKJ panel Auto (Bld)on 13-23-2177Aenpnqlfzxp distribution width (RBC) [Ratio]16.2 % High11.5 - 15.0 %[facility] Medical CenterHematocrit (Bld) [Volume fraction]34.6 %Low39.0 - 51.0 %[facility] Medical CenterHemoglobin (Bld) [Mass/Vol]11.4 g/dLLow13.0 - 17.0 g/dL [facility] Medical CenterInterpretation and review of laboratory resultsAbnormalCMadison HealthH (RBC) [Entitic mass]31.3 pg26.0 - 34.0 pgCMadison HealthHC (RBC) [Mass/Vol]32.9 g/dL30.5 - 36.0 g/dLGalion HospitalV (RBC) [Entitic vol]95.1 fL80.0 - 100.0 fLCUniversity Hospitals Conneaut Medical CenterNucleated RBC (Bld) [#/Vol]NINFCUniversity Hospitals Conneaut Medical Center Platelet mean volume (Bld) [Entitic vol]10.1 fL9.0 - 12.7 [facility] Platelets (Bld) [#/Vol]222 10*3/[facility] HospitalRBC (Bld) [#/Vol]3.64 10*6/uL Low4.20 - 6.00 m/[facility] Mer[facility] HospitalWBC (Bld) [#/Vol]7.62 10*3/[facility] Medical CenterErythrocyte distribution width (RBC) [Ratio]16.2 %High11.5-15.0 [facility] HospitalComment on above:Order Comment: Specimen Type: BLOOD SPECIMENOrdering Facility: [facility] Address:[facility] [place], [place] [address]Performed By: #### 28089-0 ####[facility] LABCLIA [id number] [place], [place] [address]Fcsknbsakp (Bld) [Volume fraction]34.6 %Low39.0-51.0[facility] on above: Order Comment: Specimen Type: BLOOD SPECIMENOrdering Facility: [facility] Address:[address] [place], [place] [address]Performed By: #### 98238- 2 ####[facility] LABCLIA [id number] [place], [place] [address]Rqehoygidq (Bld) [Mass/Vol]11.4 g/dLLow13.0-17.0[facility] on above:Order Comment: Specimen Type: BLOOD SPECIMENOrdering Facility: [facility] Address:[address] [place], [place] [address]Performed By: #### 93060-1 ####[facility] LABIA [id number] [place], [place] [address]OIJ (RBC) [Entitic mass]31.3 pzAnkfgd15.0-34.0[facility] on above: Order Comment: Specimen Type: BLOOD SPECIMENOrdering Facility: [facility] Address:[address] [place], [place] [address]Performed By: #### 17612- 2 ####[facility] LABIA [id number] [place], [place] [address]ZGBE (RBC) [Mass/Vol]32.9 g/nRInkzht16.5-36.0[facility] on above:Order Comment: Specimen Type: BLOOD SPECIMENOrdering Facility: [facility] Address:[address] [place], [place] [address]Performed By: #### 10098-3 ####[facility] LABIA [id number] [place], [place] [address]HRE (RBC) [Entitic vol]95.1 yYFlhzon27.0-100.0[facility] on above: Order Comment: Specimen Type: BLOOD SPECIMENOrdering Facility: [facility] Address:[address] [place], [place] [address]Performed By: #### 82167- 2 ####[facility] LABCLIA [id number] [place], [place] [address]Euhehxqmx RBC (Bld) [#/Vol]10*3/uLNormal<0.01[facility] on above:Order Comment: Specimen Type: BLOOD SPECIMENOrdering Facility: [facility] Address:[address] [place], [place] [address]Performed By: #### 66758-7 ####[facility] LABCLIA [id number] [place], [place] [address]Cfmoiwyv mean volume (Bld) [Entitic vol]10.1 fLNormal9.0-12.7CUniversity Hospitals [facility] Medical [facility] on above:Order Comment: Specimen Type: BLOOD SPECIMENOrdering Facility: [facility] Address:[address] [place] [address] Performed By: #### 25186-4 ####[facility] LABCLIA [id number] [place], [place] [address]Bpjnsddoc (Bld) [#/Vol]222 10*3/hETxobfb925-199KyhmyviffPremier Health Atrium Medical Center on above:Order Comment: Specimen Type: BLOOD SPECIMENOrdering Facility: [facility] Address:[address] [place], [place] [address]Performed By: #### 80527-4 ####[facility] LABCLIA [id number] [place], [place] [address]YWG (Bld) [#/Vol]3.64 10*6/uLLow4.20-6.00[facility] on above:Order Comment: Specimen Type: BLOOD SPECIMENOrdering Facility: [facility] Address:[address] [place], [place] [address]Performed By: #### 65297-9 ####[facility] LABCLIA [id number] [place], [place] [address]BKK (Bld) [#/Vol]7.62 10*3/uL Normal3.70-11.00[facility] on above:Order Comment: Specimen Type: BLOOD SPECIMENOrdering Facility: [facility] Address:[address] [place], [place] [address]Performed By: #### 95419-1 ####[facility] LABCLIA [id number] [place], [place] [address]Vzqlhu SerPl-mCncon 91-34-7519Abvagnop [Mass/Vol]11.1 ug/dLNormal4.8-19.5CUniversity Hospitals [facility] Medical Center on above:Order Comment: Specimen Type: BLOOD SPECIMENOrdering Facility: [facility] Address:[address] [place], [place] [address]Result Comment: Provided reference range is from 6-10 AM sample collection time.Cortisol Reference Range: 6-10 AM = 4.8-19.5 ug/dL, 4-8 PM = 2.5-11.9 ug/dLPerformed By: #### 2143-6, 2132-9 ####[facility] LABCLIA [id number] [place] [address] [place] OF AMERICAErythrocyte distribution width Auto (RBC) [Ratio]on 21-59-5254Iwdrpksnidk distribution width (RBC) [Ratio] Erythrocyte distribution width [Ratio] by Automated npeqmIwap20.5-15.0[facility] NorthHematocrit Auto (Bld) [Volume fraction]on 07-29-2024 Hematocrit (Bld) [Volume fraction]Hematocrit [Volume Fraction] of Blood by Automated lqctbLlu66.0-51.0[facility] NorthHemoglobin [Mass/volume] in Bloodon 65-09-4056Hsplnnaiyo (Bld) [Mass/Vol]Hemoglobin [Mass/volume] in SpijpTen20.0-17.0[facility] NorthLaboratory - Chemistry and Chemistry - challengeon 75-29-7138Kyxwzye [Mass/Vol]8.9 mg/dL 8.5-10.2FSelect Medical Specialty Hospital - Cleveland-FairhillChloride [Moles/Vol]105 mmol/L98-107 [facility] NorthCO2 [Moles/Vol]27 mmol/N76-65ZhlsiqbpwPremier Health Miami Valley Hospital NorthCobalamin (Vitamin B12) [Mass/Vol]729 pg/uH364-9208RwsyvivnmPremier Health Miami Valley Hospital NorthCreatinine [Mass/Vol]1.25 mg/dLHigh0.73-1.22[facility] NorthGlucose [Mass/Vol]141 mg/kIKslm81-06KeibqrzmnPremier Health Miami Valley Hospital NorthComment on above:The [place] Diabetes Association (ADA) provides guidance for cutoff [...] diabetes.Reference: Standardsof Medical Care in Diabetes 2016, [place] [employer]. Diabetes Care. 2016.39(Suppl 1).Magnesium [Mass/Vol]2.0 mg/dL 1.7-2.3FSelect Medical Specialty Hospital - Cleveland-FairhillPotassium [Moles/Vol]4.0 mmol/L3.7-5.1 [facility] Hospitalodium [Moles/Vol]139 mmol/E445-328MddgyrwegPremier Health Miami Valley Hospital NorthUrea nitrogen [Mass/Vol]27 mg/dLHigh9-24[facility] NorthLeukocytes [#/volume] corrected for nucleated erythrocytes in Blood by Automated counon 20-69-9451AON corrected for nucl RBC Auto (Bld) [#/Vol]Leukocytes [#/volume] corrected for nucleated erythrocytes in Blood by Automated coun3.70-11.00Upper Valley Medical CenterH Auto (RBC) [Entitic mass]on 81-70-0649ATZ (RBC) [Entitic mass]MCH [Entitic mass] by Automated count26.0-34.0[facility] NorthMCHC Auto (RBC) [Mass/Vol]on 33-61-9104JMUB (RBC) [Mass/Vol]MCHC [Mass/volume] by Automated count30.5-36.0[facility] NorthMCV Auto (RBC) [Entitic vol]on 28-04-1719XJM (RBC) [Entitic vol]MCV [Entitic volume] by Automated count 80.0-100.0[facility] NorthMagnesium SerPl-mCncon 07-29-2024 Magnesium [Mass/Vol]2.0 mg/dLNormal1.7-2.3CKindred HealthcareComcaro center on above:Order Comment: Specimen Type: BLOOD SPECIMENOrdering Facility: [facility] Address:[address] [place], [place] [address] [id number] By: #### 94617-8, 73980-6 ####[facility] LABCLIA [id number] [place], [place] [address]Ys Panel Informationon 14-80-3377Tovqoynqs GFR (CKD-EPI)61 mL/min/1.73m???>=60[facility] Hospital NorthComcaro center on above:Estimated Glomerular Filtration Rate (eGFR) is [...] reflect actual GFR.Nucleated RBC Auto (Bld) [#/Vol]on 69-81-5393Qlbfilrko RBC (Bld) [#/Vol]Nucleated erythrocytes [#/volume] in Blood by Automated count<0.01[facility] Platelet mean volume Auto (Bld) [Entitic vol]on 64-81-0594Pjsvfozl mean volume (Bld) [Entitic vol]Platelet mean volume [Entitic volume] in Blood by Automated count9.0-12.7FSelect Medical Specialty Hospital - Cleveland-FairhillPlatelets Auto (Bld) [#/Vol]on 72-11-9092Axmhactkv (Bld) [#/Vol]Platelets [#/volume] in Blood by Automated uabkr119-139FzoqqnmvoPremier Health Miami Valley Hospital NorthRBC Auto (Bld) [#/Vol]on 07-29-2024 RBC (Bld) [#/Vol]Erythrocytes [#/volume] in Blood by Automated countLow4.20-6.00 [facility] Hospitalerum or plasma anion gap determinationon 57-96-4887Moics gap [Moles/Vol]Serum or plasma anion gap determinationLow8-15 [facility] Hospitalerum or plasma calcidiol measurement (mass/volume)on 12-86-093825757832-zjdswcjvakezov D3 [Mass/Vol]Serum or plasma calcidiol measurement (mass/volume)31.0-80.0[facility] Comment on above:Classification of 25 [place] Vitamin D status: Deficiency/Insufficiency: < or = 30 ng/ml.Sufficiency/Optimal Levels: 31-80 ng/mLToxicity: > 100 ng/mL. Test performed by chemiluminescent immunoassay.Vit B12 SerPl-mCncon 90-86-6018Ynvqameuz (Vitamin B12) [Mass/Vol]729 pg/mLNormal 232-1245Cberger hospitaland [facility] on above:Order Comment: Specimen Type: BLOOD SPECIMENOrdering Facility: [facility] Address:[address] [place], [place] [address]Performed By: #### 2143-6, 2139 ####[facility] LABCLIA [id number] [address] OF [facility] Chest limitedon 43-69-9173Xhnhyfldn Clinic ALBUMINon 40-32-6981Arcxvdx [Mass/Vol]3.9 g/dL3.9 - 4.9 g/dLOhiohealth Southeastern Medical Center Albumin (Body fld) [Mass/Vol]on 23-29-4700Jsnpu Nom (Body fld)Pleural Cavity, RightNormalClevelDelaware County Hospital on above:Order Comment: Specimen Type: SPECIMEN FROM PLEURA OBTAINED BY THORACENTESISOrdering Facility: [facility] Address: [address] [place], [place] [address]Result Comment: recurrent pleual effusion on rightPerformed By: #### 2529-6, 2881-1, 1747-5 ####[facility] LABCLIA [id number] [place] [address] [place] AMERICAAlbumin Fld-mCncon 07-20-2024 Albumin (Body fld) [Mass/Vol]1.4 g/dLNormalSee CommentUc West Chester Hospital Comment on above:Order Comment: Specimen Type: SPECIMEN FROM PLEURA OBTAINED BY THORACENTESISOrdering Facility: [facility] Address: [address] [place], [place] [address]Result Comment: Body Fluid Albumin may be used [...] document C49A. Hao, [place]: Clinical Laboratory Standards [place]: 2007.2. Dionicio SERNA. Serum to ascites albumin gradient. UpToDate. 2015. Accessed on September 28, 2015.Performed By: #### 2529-6, 2881-1, 1747-5 ####[facility] LABCLIA [id number] [place] [address] [place] AMERICAAlbumin SerPl-mCncon 07-20-2024 Albumin [Mass/Vol]3.9 g/dLNormal3.9-4.9CKindred HealthcareComment on above:Order Comment: Specimen Type: BLOOD SPECIMENOrdering Facility: [facility] Address:[address] [place], [place] [address]Performed By: #### 1751-7, 2885-2 ####[facility] LABCLIA [id number] [place] [address] [place] AMERICACNOVon 68-34-0026EHGF NormalOhiohealth Southeastern Medical Center ClevelandLACTATE DEHYDROGENASEon 79-47-6738JJZ [Catalytic activity/Vol]293 U/JEoyr425 - 225 U/LCleveland ClinicComment on above:Hemolysis present. The origin of the hemolysis, in vitro versus an in vivo hemolytic process, cannot be distinguished via this assay alone. In vitro hemolysis may lead to non-physiological (spurious)elevation in lactate dehydrogenase (LDH) results. The result should be interpreted in context of the clinical setting and other test results. Suggest reorder as clinically indicated. LDH Fld-cCncon 06-38-2573MAA (Body fld) [Catalytic activity/Vol]167 U/LNormalSee CommentUc West Chester HospitalComcaro center on above:Order Comment: Specimen Type: SPECIMEN FROM PLEURA OBTAINED BY THORACENTESISOrdering Facility: [facility] Address: [address] [place], [place] [address]Result Comment: Pleural fluids: Pleural fluid lactate dehydrogenase [...] document C49A. Hao, [place]: Clinical Laboratory Standards [place]: 2007.Reference: 2. Rafael STARK, Fei Doyle. Body [...] [facility] LABCLIA [id number] [place] [address] [id number] [facility] SerPl-cCncon 51-35-5993YSU [Catalytic activity/Vol]293 U/YSnwu533-841 [facility] HospitalComcaro center on above:Order Comment: Specimen Type: BLOOD SPECIMENOrdering Facility: [facility] Address:[address] [place], [place] [address]Result Comment: Hemolysis present. The origin of the hemolysis, in vitro versus an in vivo hemolytic process, cannot be distinguished via this assay alone. In vitro hemolysis may lead to non-physiological (spurious) elevation in lactate dehydrogenase (LDH) results. Theresult should be interpreted in context of the clinical setting and other test results. Suggest reorder as clinically indicated.Performed By: #### 2532-0 ####[facility] LABCLIA [id number] [place] [id number] [facility] CENTERLD [Catalytic activity/Vol]on 49-82-5807Vdzufoirymbcdm and review of laboratory resultsAbnormAshtabula County Medical Center Laboratory - Chemistry and Chemistry - challengeon 69-74-4290Ggulglr [Mass/Vol] 3.9 g/dL3.9-4.9Prem[facility] Hospital NorthLD [Catalytic activity/Vol]293 U/ZYdmt662-124YxxiropbfPremier Health Miami Valley Hospital NorthComment on above:Hemolysis present. The origin of the hemolysis, in vitro versus an in vivo hemolytic process, cannot be distinguished via this assay alone. In vitro hemolysis may lead to non-physiological (spurious)elevation in lactate dehydrogenase (LDH) results. The result should be interpreted in context of the clinical setting and other test results. Suggest reorder as clinically indicated.No Panel Information on 22-16-8786Ryqpdtydqlgpem and review of laboratory resultsNormalCMercy Health Defiance HospitalPROTEIN, TOTALon 34-74-1956Pyfxxmm [Mass/Vol]7.6 g/dL6.3 - 8.0 g/dLOhiohealth Southeastern Medical CenterProt Fld-mCncon 34-90-0971Bjxulfo (Body fld) [Mass/Vol] 2.2 g/dLNormalSee CommentPremier Health Atrium Medical Center on above:Order Comment: Specimen Type: SPECIMEN FROM PLEURA OBTAINED BY THORACENTESISOrdering Facility: [facility] Address: [address] [place], [place] [address]Result Comment: Serous fluids: Effusions are the accumulation [...] document C49A. RAJEEV Bui: Clinical Laboratory Standards [place]: 2007.Performed By: #### 2529-6, 2881-1, 1747-5 ####[facility] LABCLIA [id number] [place] [address] [place] AMERICAProt SerPl-mCncon 07-20-2024 Protein [Mass/Vol]7.6 g/dLNormal6.3-8.0[facility] HospitalComment on above:Order Comment: Specimen Type: BLOOD SPECIMENOrdering Facility: [facility] Address:[address] [place], [place] [address]Performed By: #### 1751-7, 2885-2 ####[facility] LABCLIA [id number] [place] [address] [place] AMERICAProtein [Mass/volume] in Serum or Plasmaon 20-96-3009Rkfzdaf [Mass/Vol]Protein [Mass/volume] in Serum or Plasma6.3-8.0[facility] NorthUS Chest limitedon 07-20-2024 Radiology Study observation (narrative)[facility]heastern Medical CenterXR CHEST 2V FRONTAL/LATon 89-20-4298VR CHEST 2V FRONTAL/LATNormalCKindred HealthcareXR Chest PA and Lateralon 95-34-8781PKYTVSFTBA: Decreased size of small right pleural effusion. Sustainability Coach: PSCB Transcribe Date/Time: Jul 20 2024 12:41P Dictated by : PANCHO CANALES MD This examination was interpreted and the report reviewed and electronically signed by: ANALY ALONSO MD on Jul 20 2024 1:49PM [facility] DIVISION OF RADIOLOGY* * *Final Report* * [...] within the thoracic spine. DIVISION OF RADIOLOGYProvider, [facility] Imaging [place] - 07/20/2024 * * *Final Report* * [...] Decreased size of small right pleural effusion. Sustainability Coach: PSCB Transcribe Date/Time: Jul 20 2024 12:41P Dictated by : PANCHO CANALES MD This examination was interpreted and the report reviewed and electronically signed by: ANALY ALONSO MD on Jul 20 2024 1:49PM [facility] HealthRadiology Study observation (narrative)[facility] Chest PA and LateralOrdered By: Ccf Provider on 86-26-6362Rpjwnentw ClinicCNPNon 85-60-0135RYXWDodqwmOiozeywij Clinic ClevelandCNPNon 59-94-8087JSFFJdvyip [facility] HospitalBODY FLUID CELL COUNTon 71-34-1778Wckcfst (Unsp spec) ClearNormalClearPremier Health Atrium Medical Center on above:Order Comment: Specimen Type: SPECIMEN FROM PLEURA OBTAINED BY THORACENTESISOrdering Facility: [facility] Address: [address] [place] [address] Performed By: #### CCBF, [id number] ####[facility] LABCLIA [id number] [place] [address] [place] Color (Body fld)YellowNormalYellowPremier Health Atrium Medical Center on above: Order Comment: Specimen Type: SPECIMEN FROM PLEURA OBTAINED BY THORACENTESISOrdering Facility: [facility] Address: [address] [place], [place] [address]Performed By: #### CCBF, [id number] ####[facility] LABCLIA [id number] [place] [address] [place] AMERICARBC Manual cnt (Body fld) [#/Vol]<2000Normal<2000 [facility] on above:Order Comment: Specimen Type: SPECIMEN FROM PLEURA OBTAINED BY THORACENTESISOrdering Facility: [facility] Address: [address] [place], [place] [address]Performed By: #### CCBF, [id number] ####[facility] LABCLIA [id number] [place] [address] [place] AMERICASpecimen source Nom (Body fld)Pleural Cavity, RightNormalCUniversity Hospitals Cleveland Medical Center on above:Order Comment: Specimen Type: SPECIMEN FROM PLEURA OBTAINED BY THORACENTESISOrdering Facility: [facility] Address: [address] [place], [place] [address]Performed By: #### CCBF, [id number] ####[facility] LABCLIA [id number] [place] [address] [place] THE CHRIST HOSPITALWBC Manual cnt (Body fld) [#/Vol]408 /uLNormal<1000 [facility] on above:Order Comment: Specimen Type: SPECIMEN FROM PLEURA OBTAINED BY THORACENTESISOrdering Facility: [facility] Address: [address] [place], [place] [address]Performed By: #### CCBF, [id number] ####[facility] LABCLIA [id number] [address] OF THE CHRIST HOSPITALCNOVon 01-55-2212CWIYJoywajBuwyvzpbdOhio State University Wexner Medical CenterFLOW CYTOMETRY FOR LEUKEMIA/LYMPHOMA (FCLL) PERFORMABLEon 18-78-9203ZPME CYTOMETRY ORDER STATUS Results will be reported under F case ID when completedAshtabula General Hospital on above:Order Comment: Specimen Type: SPECIMEN FROM PLEURA OBTAINED BY THORACENTESISOrdering Facility: [facility] Address: [address] [place], [place] [address]Performed By: #### FCLLP ####[facility] LABCLIA [id number] [address] STATES GL[facility] COVE HOSPITALFLOW CYTOMETRY FOR LEUKEMIA/LYMPHOMA (FCLL) REFLEX on 85-69-3661MHKUKBLCO COMMENTAshtabula General Hospital on above: Order Comment: Specimen Type: SPECIMEN FROM PLEURA OBTAINED BY THORACENTESISOrdering Facility: [facility] Address: [address] [place], [place] [address]Result Comment: This test was developed and its performance characteristics determined by [facility]'s [facility] Pathology and Laboratory Medicine [place] ([facility] CENTERPLMI). It has not been cleared or approved by the FDA. [facility] is regulated under CLIA as qualified to perform high-complexity testing. This test is used for clinical purposes. It should not be regarded as investigational orfor research.Performed By: #### FCLLRFLX ####[facility] LABCLIA [id number] [place] [address] [place] AMERICAFINAL PERFORMING LABNormal [facility] on above:Order Comment: Specimen Type: SPECIMEN FROM PLEURA OBTAINED BY THORACENTESISOrdering Facility: [facility] Address: [address] [place], [place] [address]Result Comment: Diagnostic interpretation performed at [facility], [address] [place] [address] CLIA# [id number] Director: Ramos Strickland M.D. Performed By: #### FCLLRFLX ####[facility] LABCLIA [id number] [address] STATES [facility] FLOW CYTOMETRY RESULTSNormalCUniversity Hospitals Cleveland Medical Center on above:Order Comment: Specimen Type: SPECIMEN FROM PLEURA OBTAINED BY THORACENTESISOrdering Facility: [facility] Address: [address] [place], [place] [address]Result Comment: Specimen type: Pleural fluidTotal nucleated cell [...] Normal PatternCD7 T/NK-cells Normal PatternCD8 T-cellsubset Normal BbkbmakJJ96 B-cell subset Normal GxcsbqgUL57 Myeloid Normal CtamnmbZX83/56 NK cells Normal VxqkoozEQ18 B-cells Normal XzetniyWT87 B-cells Normal LihewnqQF37 B-cells subset Normal BvwmthuUW85 Ramos-leukocyte Normal YamlbrbNY088 Dendritic Normal RdchmeiSP671 B-cells Normal Patternkappa/lambda B-cells Normal PatternTRBC1 T-cells Normal, polytypicFlow cytometric analysis of the pleural fluid reveals that 95% of total events have the CD45 and side scatter properties of lymphocytes.The lymphocytes are composed of a mixture of heterogeneous T- cells (75%; CD4:CD8 ratio = 2.48), NK cells (15%) and polytypic B-cells (8%).OVN/NZ 06/23/2024Performed By: #### FCLLRFLX ####[facility] [id number] [address] STATES OF THE [facility] HOSPITALGROSS DESCRIPTIONNoCleveland Clinic [facility] on above: Order Comment: Specimen Type: SPECIMEN FROM PLEURA OBTAINED BY THORACENTESISOrdering Facility: [facility] Address: [address] [place], [place] [address]Result Comment: A. Pleural Cavity, RightRECEIVED 10 MLS PLEURAL FLUIDPerformed By: #### FCLLRFLX ####[facility] [id number] [address]REETINTERPRETATIONAshtabula General Hospital on above:Order Comment: Specimen Type: SPECIMEN FROM PLEURA OBTAINED BY THORACENTESISOrdering Facility: [facility] Address: [address] [place], [place] [address]Result Comment: There is no immunophenotypic evidence of involvement by a lymphoproliferative disorder. Correlation with the clinical findings is suggested. Performed By: #### FCLLRFLX ####[facility] [id number] [place] [address] [place] Glucose Fld-mCncon 20-25-7049Agvdnov (Body fld) [Mass/Vol]112 mg/dLNormalSee CommentPremier Health Atrium Medical Center on above:Order Comment: Specimen Type: SPECIMEN FROM PLEURA OBTAINED BY THORACENTESISOrdering Facility: [facility] Address: [address] [place], [place] [address]Result Comment: Synovial fluid: Synovial fluid glucose measurement [...] document C49A. RAJEEV Bui: Clinical Laboratory Standards [place]: 2007. Performed By: #### 2344-0, 2529-6, 2881-1 ####[facility] LABCLIA [id number] [place] [address] [place] OF AMERICAHISTORY PHYSICALon 81-85-5526NTKKQVI PHYSICALNormalCRegional Medical Center Fld-cCncon 87-87-0721VLL (Body fld) [Catalytic activity/Vol]100 U/L NormalSee CommentUc West Chester HospitalComment on above:Order Comment: Specimen Type: SPECIMEN FROM PLEURA OBTAINED BY THORACENTESISOrdering Facility: [facility] Address: [address] [place], [place] [address]Result Comment: Pleural fluids: Pleural fluid lactate dehydrogenase [...] document C49A. RAJEEV Bui: Clinical Laboratory Standards [place]: 2007.Reference: 2. Fe[address]. Body fluid [...] [facility] LABCLIA [id number] [place] [address] [place] AMERICAMANUAL DIFFERENTIAL, BODY FLUIDon 03-40-0000DRO TTL, BODY NMIMI913 cells countedNormalCUniversity Hospitals [facility] on above:Order Comment: Specimen Type: SPECIMEN FROM PLEURA OBTAINED BY THORACENTESISOrdering Facility: [facility] Address: [address] [place], [place] [address]Performed By: #### CCDIOINCIO, [id number] ####[facility] LABCLIA [id number] [place] [address] [place] AMERICALYMPH%, BF80 % Lgkb60-12BevcpwhduPremier Health Atrium Medical Center on above:Order Comment: Specimen Type: SPECIMEN FROM PLEURA OBTAINED BY THORACENTESISOrdering Facility: [facility] Address: [address] [place], [place] [address]Performed By: #### CCDIONICIO, [id number] ####[facility] LABCLIA [id number] [place] [address] [place] AMERICAMACRO%, BF6 % Dnd34-24RmkapmwijPremier Health Atrium Medical Center on above:Order Comment: Specimen Type: SPECIMEN FROM PLEURA OBTAINED BY THORACENTESISOrdering Facility: [facility] Address: [address] [place], [place] [address]Performed By: #### CCDIONICIO, [id number] ####[facility] LABCLIA [id number] [place] [address] [place] AMERICAMESO %, BF1 % Normal0-2CUniversity Hospitals [facility] Medical Center on above:Order Comment: Specimen Type: SPECIMEN FROM PLEURA OBTAINED BY THORACENTESISOrdering Facility: [facility] Address: [facility] [place], [place] [address]Performed By: #### CCBF, [id number] ####[facility] LABCLIA [id number] [place] [id number] [place] AMERICAMONO% BF6 % [facility] HospitalComcaro center on above:Order Comment: Specimen Type: SPECIMEN FROM PLEURA OBTAINED BY THORACENTESISOrdering Facility: [facility] Address: [address] [place], [place] [address]Performed By: #### CCBF, [id number] ####[facility] LABCLIA [id number] [place] [address] [place] AMERICANEUT%, BF6 % High0-1CKindred HealthcareComcaro center on above:Order Comment: Specimen Type: SPECIMEN FROM PLEURA OBTAINED BY THORACENTESISOrdering Facility: [facility] Address: [address] [place], [place] [address]Performed By: #### CCDIONICIO, [id number] ####[facility] LABCLIA [id number] [place] [address] [place] AMERICAREAC LYMPH %, BF1 %[facility] HospitalComcaro center on above:Order Comment: Specimen Type: SPECIMEN FROM PLEURA OBTAINED BY THORACENTESISOrdering Facility: [facility] Address: [address] [place], [place] [address]Performed By: #### CCBF, [id number] ####[facility] LABIA [id number] [place] [address] [place] AMERICAOPERATIVE NOon 36-85-8232PNVGGVLVQ NONormalUc West Chester HospitalProt Fld-mCncon 06-22-2024 Protein (Body fld) [Mass/Vol]2.6 g/dLNormalSee CommentUc West Chester Hospital Comment on above:Order Comment: Specimen Type: SPECIMEN FROM PLEURA OBTAINED BY THORACENTESISOrdering Facility: [facility] Address: [address] [place], [place] [address]Result Comment: Serous fluids: Effusions are the accumulation [...] document C49A. RAJEEV Bui: Clinical Laboratory Standards [place]: 2007.Performed By: #### 2344-0, 2529-6, 2881-1 ####[facility] LABCLIA [id number] [place] [address] [place] CNOVon 41-89-2702XCKBFlltlsXgpfwkgpu Clinic ClevelandBasi metabolic 2000 panel on 37-99-0625Mchvu gap [Moles/Vol]13 mmol/LNormal8-15[facility] Comment on above:Order Comment: Specimen Type: BLOOD SPECIMENOrdering Facility: [facility] Address:[address] [place] [address] Performed By: #### 74649-6 ####[facility] LABIA [id number] [place] [address] [place] Calcium [Mass/Vol]9.3 mg/dLNormal8.5-10.2CUniversity Hospitals [facility] Medical Center on above:Order Comment: Specimen Type: BLOOD SPECIMENOrdering Facility: [facility] Address:[address] [place], [place] [address]Performed By: #### 84481-1 ####[facility] LABIA [id number] [place] [address] [place] AMERICAChloride [Moles/Vol] 100 mmol/DAszdtm11-947OqlixsdxlUc West Chester HospitalComcaro center on above:Order Comment: Specimen Type: BLOOD SPECIMENOrdering Facility: [facility] Address:[address] [place], [place] [address]Performed By: #### 64573-8 ####[facility] LABIA [id number] [place] [address] [place] AMERICACO2 [Moles/Vol]29 mmol/LNormal 22-30[facility] on above:Order Comment: Specimen Type: BLOOD SPECIMENOrdering Facility: [facility] Address:[address] [place], [place] [address]Performed By: #### 41375-8 ####[facility] [id number] [place] [address] [place] AMERICACreatinine [Mass/Vol]1.19 mg/dLNormal0.73-1.22[facility] on above:Order Comment: Specimen Type: BLOOD SPECIMENOrdering Facility: [facility] Address:[address] [place], [place] [address]Performed By: #### 81619-0 ####[facility] [id number] [place] [address] [place] Creatinine and Glomerular filtration rate.predicted panel (S/P/Bld)64 mL/min/1.73m???Normal>=60[facility] on above:Order Comment: Specimen Type: BLOOD SPECIMENOrdering Facility: [facility] Address:[address] [place], [place] [address]Result Comment: Estimated Glomerular Filtration Rate (eGFR) is [...] not accurately reflect actual GFR.Performed By: #### 64904-4 ####[facility] LABSOUTHWESTERN VERMONT [facility] [id number] [place] [address] [place] AMERICAGlucose [Mass/Vol]158 mg/dLHigh 74-99[facility] on above:Order Comment: Specimen Type: BLOOD SPECIMENOrdering Facility: [facility] Address:[address] [place], [place] [address]Result Comment: The [place] [employer] (ADA) provides guidance for cutoff [...] Standards of Medical Care in Diabetes 2016, [place] [employer]. Diabetes Care. 2016.39(Suppl 1).Performed By: #### 75404-9 ####[facility] LABCLIA [id number] [place] [address] [place] AMERICAPotassium [Moles/Vol]4.1 mmol/L Normal3.7-5.1CKindred HealthcareComment on above:Order Comment: Specimen Type: BLOOD SPECIMENOrdering Facility: [facility] Address:[address] [place], [place] [address]Performed By: #### 48879-0 ####[facility] LABIA [id number] [place] [address] [place] AMERICASodium [Moles/Vol]142 mmol/YMfhsjj660-923VauiyichqPremier Health Atrium Medical Center on above:Order Comment: Specimen Type: BLOOD SPECIMENOrdering Facility: [facility] Address:[address] [place], [place] [address]Performed By: #### 97414-5 ####[facility] LABIA [id number] [place] [address] [place] AMERICAUrea nitrogen [Mass/Vol]28 mg/dLHigh9-24[facility] Comment on above:Order Comment: Specimen Type: BLOOD SPECIMENOrdering Facility: [facility] Address:[address] [place] [address] Performed By: #### 14403-7 ####[facility] LABCLHELIO [id number] [facility] [place] [address] [place] CNPNon 23-48-5264RNAFXudflyXzxrybruv Clinic ClevelandALBUMIN, BODY FLUIDon 19-55-3729Fsdtzzk (Body fld) [Mass/Vol]1.4 g/dLSee CommentOhiohealth Southeastern Medical Center Comment on above:Body Fluid Albumin [...] Clinical Chemistry Approved Guideline. CLSI document C49A. HaoRAJEEV zhang: Clinical Laboratory Standards [place]: 2007. 2. Dionicio SERNA. Serum to ascites albumin gradient. UpToDate. 2015. Accessed on September 28, 2015. BODY FLUID CELL COUNTOrdered By: Britton Andrews on 45-95-3297CXG Manual cnt (Body fld) [#/Vol]/uLNINF - 2000 /[facility] Centerpecimen source Nom (Body fld) Pleural Cavity, RightOhiohealth Southeastern Medical CenterW Manual cnt (Body fld) [#/Vol]443 /uL NINF - 1000 /[facility] HospitalCHOLESTEROL BFLon 05-19-2024 Cholesterol (Body fld) [Mass/Vol]30 mg/dLSee CommentOhiohealth Southeastern Medical CenterComment on above:SYNOVIAL FLUIDS: Synovial fluid cholesterol measurement [...] document C49-A. RAJEEV Bui: Clinical Laboratory Standards [place]; 2007. Comprehensive metabolic 2000 panelon 45-04-3217Lrrltsq [Mass/Vol]3.8 g/dLLow3.9 - 4.9 g/dLCleveland ClinicALP [Catalytic activity/Vol]174 U/LHigh38 - 113 U/L [facility] ClinicALT [Catalytic activity/Vol]22 U/L10 - 54 U/LCleveland Clinic Anion gap [Moles/Vol]16 mmol/LHigh8 - 15 mmol/LCleveland ClinicAST [Catalytic activity/Vol]28 U/L14 - 40 U/LCleveland ClinicBilirubin [Mass/Vol]0.7 mg/dL0.2 - 1.3 mg/dLCleadams county regional medical center ClinicCalcium [Mass/Vol]9.1 mg/dL8.5 - 10.2 mg/dLCleadams county regional medical center ClinicChloride [Moles/Vol]98 mmol/L98 - 107 mmol/LCleveland ClinicCO2 [Moles/Vol]28 mmol/L22 - 30 mmol/LCleveland ClinicCreatinine [Mass/Vol]1.14 mg/dL0.73 - 1.22 mg/dLSavannah ClinicGFR/1.73 sq M.predicted among non-blacks MDRD (S/P/Bld) [...] not accurately reflect actual GFR.Glucose [Mass/Vol] 112 mg/aMEnsl66 - 99 mg/dLOhiohealth Southeastern Medical CenterComment on above:The [place] Diabetes Association (ADA) provides guidance for cutoff [...] Standards of Medical Care in Diabetes 2016, [place] [employer]. Diabetes Care. 2016.39(Suppl 1). Interpretation and review of laboratory resultsAbnormalCleveland ClinicPotassium [Moles/Vol]3.4 mmol/LLow3.7 - 5.1 mmol/LCleveland ClinicProtein [Mass/Vol]6.6 g/dL6.3 - 8.0 g/dLCleadams county regional medical center ClinicSodium [Moles/Vol]142 mmol/L136 - 144 mmol/L [facility] Medical CenterUrea nitrogen [Mass/Vol]21 mg/dL9 - 24 mg/dLOhiohealth Southeastern Medical Center GLUCOSE, BODY FLUIDon 58-36-8697Kzvoqpd (Body fld) [Mass/Vol]106 mg/dLSee CommentCleSelect Medical Specialty Hospital - ColumbusComment on above:Synovial fluid: Synovial fluid glucose measurement [...] Fluids in Clinical Chemistry Approved Guideline. CLSI iucvnecmN19B. RAJEEV Bui: Clinical Laboratory Standards [place]: 2007. LACTATE DEHYDROGENASEon 81-79-4783OPL [Catalytic activity/Vol]209 U/L135 - 225 U/LCleveland ClinicComment [...] as clinically indicated. LACTATE DEHYDROGENASE, BODY FLUIDon 92-07-4993UXE (Body fld) [Catalytic activity/Vol]86 U/LSee CommentOhiohealth Southeastern Medical CenterComment on above:Pleural fluids: Pleural fluid lactate dehydrogenase [...] Fluids in Clinical Chemistry Approved Guideline. CLSI cgzzauihV43C. RAJEEV Bui: Clinical Laboratory Standards [place]: 2007. Reference: 2. Rafael STARK, Fei Doyle. [...] J Rheumatol.1992:19:529 to 533. LDH [Catalytic activity/Vol]on 28-25-3871Guxelbjcriolqh and review of laboratory resultsNormalCleveland ClinicLaboratoryon 41-22-7676Kjgnx Nom (Body fld)Pleural Cavity, RightWvumedicine Harrison Community Hospitalveland ClinicLaboratory - Specimen informationOrdered By: Britton Andrews on 99-68-7449Xaddwtr (Unsp spec)ClearClearCleveland ClinicColor (Body fld)YellowYellowOhiohealth Southeastern Medical CenterNo Panel Informationon 80-47-6056Onleqlouc ClinicOhiohealth Southeastern Medical CenterPH PLEURAL FLUID (FOR USE OUTSIDE OF [facility])on 05-19-2024 Fluid Nom (Body fld)Pleural Cavity, RightCleadams county regional medical center ClinicpH (Body fld)7.9 [pH] [facility] Medical CenterComment on above:No reference range has been established for this specimen type. This test was developed, and its performance characteristics determined by the [facility] Department of Pathology and Laboratory Medicine. It has not been cleared or approved by the FDA. The [facility] Department of Pathology and Laboratory Medicine is regulated under CLIA as qualified to perform high-complexity testing. This test is used for clinical purposes. It should not be regarded as investigational or for research. [facility] Medical CenterPROTEIN, BODY FLUIDon 42-65-5250Oqlhndk (Body fld) [Mass/Vol]2.2 g/dLSee CommentOhiohealth Southeastern Medical CenterComment on above:Serous fluids: Effusions are the accumulation [...] Fluids in Clinical Chemistry Approved Guideline. CLSI ntiemxtzL76W. Hao, [place]: Clinical Laboratory Standards [place]: 2007. TRIGLYCERIDE BFLon 23-57-3186Urvmjldhktkc (Body fld) [Mass/Vol]13 mg/dLCleSelect Medical Specialty Hospital - ColumbusComment on above:Synovial fluids: Synovial fluid triglycerides measurement [...] Clinical Chemistry; Approved Guideline. CLSI document C49A. Hao, [place]: Clinical Laboratory Standards [place]; 2007. Albumin Fld-mCncon 81-29-3426Qowecaa (Body fld) [Mass/Vol]1.4 g/dLNormalSee CommentUc West Chester HospitalComment on above:Order Comment: Specimen Type: FLUID SPECIMENOrdering Facility: [facility] Address:[address] [place] [address] [place], [place] [address]Result Comment: Body Fluid Albumin may be used [...] document C49A. RAJEEV Bui: Clinical Laboratory Standards [place]: 2007.2. Dionicio SERNA. Serum to ascites albumin gradient. UpToDate. 2015. Accessed on September 28, 2015.Performed By: #### 2344-0, 2529-6, 2881-1, 98138-6, 17505-8, 1747-5 ####[facility] LABCLIA [id number] [address] BF STAFF REVIEW (LAB ORDER)on 60-21-2157IP REVIEWReviewed by Lisy Acuña M.D., Ph.DNormalPremier Health Atrium Medical Center on above:Order Comment: Specimen Type: FLUID SPECIMENOrdering Facility: [facility] Address:[address] [place], [place] [address]Performed By: #### CCDIONICIO, [id number], [id number] ####[facility] LABCLIA [id number] [address]BF STAFF COMMENTS Numerous mature polymorphous lymphocytes. If there is clinical concern for a lymphoproliferative disorder, please order flow cytometric analysis.Normal [facility] on above:Order Comment: Specimen Type: FLUID SPECIMENOrdering Facility: [facility] Address:[address] [place], [place] [address]Performed By: #### CCBF, [id number], [id number] ####[facility] LABCLIA [id number] [place] [address] [place] OF AMERICABODY FLUID CELL COUNTon 87-37-8126Tutgjpc (Unsp spec)ClearNormalClearPremier Health Atrium Medical Center on above:Order Comment: Specimen Type: FLUID SPECIMENOrdering Facility: [facility] Address:[address] [place], [place] [address]Performed By: #### CCBF, [id number], [id number] ####[facility] LABCLIA [id number] [place] [address] [place] AMERICAColor (Body fld)Yellow NormalYellowPremier Health Atrium Medical Center on above:Order Comment: Specimen Type: FLUID SPECIMENOrdering Facility: [facility] Address:[address] [place], [place] [address]Performed By: #### CCBF, [id number], [id number] ####[facility] LABCLIA [id number] [address] STATES OF [facility] Manual cnt (Body fld) [#/Vol] <2000Normal<2000[facility] on above:Order Comment: Specimen Type: FLUID SPECIMENOrdering Facility: [facility] Address:[address] [place], [place] [address]Performed By: #### CCBF, [id number], [id number] ####[facility] LABCLIA [id number] [place] [address] [place] AMERICASpecimen source Nom (Body fld)Pleural Cavity, RightNormalCUniversity Hospitals [facility] on above: Order Comment: Specimen Type: FLUID SPECIMENOrdering Facility: [facility] Address:[address] [place], [place] [address]Performed By: #### CCBF, [id number], [id number] ####[facility] LABCLIA [id number] [place] [address] [place] AMERICACOHEN CHILDREN'S [facility] Manual cnt (Body fld) [#/Vol]443 /uLNormal<1000[facility] on above:Order Comment: Specimen Type: FLUID SPECIMENOrdering Facility: [facility] Address:[address] [place], [place] [address]Performed By: #### CCBF, [id number], [id number] ####[facility] LABCLIA [id number] [place] [address] [place] AMERICABacteria Fld Culton 76-72-5786Hwyrvdjx identified Cx Nom (Body fld)CULTURE, BODY FLD: No growth GRAM STAIN: No organisms seen Few Polymorphonuclear leukocytes Many Mononuclear cells Gram stain performed on cytospun specimen. Gram stain from primary specimenNormalPremier Health Atrium Medical Center on above:Performed By: #### 611-4, 39374-5 ####[facility] LABCLIA [id number] [place] [address] [place] AMERICACNOVon 00-30-7879YEKHAgzhmdQqttohwgl Clinic ClevelandCYTOLOGY NON-GYNon 86-91-4267WPZF REPORTNormalCUniversity Hospitals [facility] on above:Order Comment: Specimen Type: FLUID SPECIMENOrdering Facility: [facility] Address:[address] [place], [place] [address]Result Comment: Medical Cytology Report Case: [id number] Provider: Louise Cesar MD Collected: 05/18/2024 12:43 PMOrdering Location: Pulmonary Medicine Received: 05/19/2024 05:22 AMPathologist: Tracy Collins MDSpecimen: Pleural Cavity, RightPerformed By: #### CYTONON ####[facility] LABCLIA [id number] [place] [address] [place] CLINICAL HISTORYpleural effusionNormalCUniversity Hospitals [facility] Center on above:Order Comment: Specimen Type: FLUID SPECIMENOrdering Facility: [facility] Address:[address] [place], [place] [address]Performed By: #### CYTONON ####[facility] LABCLIA [id number] [address] [address] [place] STATES OF THE CHRIST HOSPITALFINAL DIAGNOSISNormal Peoples Hospitalment on above:Order Comment: Specimen Type: FLUID SPECIMENOrdering Facility: [facility] Address:[address] [place], [place] [address]Result Comment: A - Pleural Cavity, Right, Sterile Fluid/Body Fluid Negative for malignant cells. Chronic inflammation.The following cell blocks were associated with this case:A1\X09\Cell Block, Alcohol Fixed\X09\ Performed By: #### CYTONON ####[facility] LABCLIA [id number] [address] [facility] LABAshtabula General Hospital on above:Order Comment: Specimen Type: FLUID SPECIMENOrdering Facility: [facility] Address:[address] [place], [place] [address]Result Comment: Technical component, preformer impregnated fabrics screening performed at [facility], [facility] CenterE[facility] [address] CLIA# [id number] interpretation performed at [facility], [address] [place], [place] [address] CLIA# [id number] Director: Ramos Strickland M.D.Performed By: #### CYTONON ####[facility] LABCLIA [id number] [address]ETGROSS DESCRIPTIONNationwide Children's Hospital Comment on above:Order Comment: Specimen Type: FLUID SPECIMENOrdering Facility: [facility] Address:[address] [place], [place] [address]Result Comment: A. Pleural Cavity, Right20 cc hazy yellow fluid with material. ThinPrep and Cell Block prepared.Performed By: #### CYTONON ####[facility] LABCLIA [id number] [address] [address] [facility] OF [facility] Hospitald-[facility] 15-43-1975Yhhelgweyba (Body fld) [Mass/Vol] 30 mg/dLNormalSee CommentPremier Health Atrium Medical Center on above:Order Comment: Specimen Type: FLUID SPECIMENOrdering Facility: [facility] Address:[address] [place], [place] [address]Result Comment: SYNOVIAL FLUIDS:Synovial fluid cholesterol measurement may [...] CLSI document C49-A. RAJEEV Bui: Clinical LaboratoryStandards [place]; 2007.Performed By: #### 2344-0, 2529-6, 2881-1, 75864-5, 84508-9, 1747-5 ####[facility] LABCLIA [id number] [place] [address] [place] AMERICAFluid Nom (Body fld)Pleural Cavity, RightNormalCKindred HealthcareComcaro center on above: Order Comment: Specimen Type: FLUID SPECIMENOrdering Facility: [facility] Address:[address] [place], [place] [address]Performed By: #### 2344- 0, 2529-6, 2881-1, 34295-9, 44680-6, 1747-5 ####[facility] LABCLIA [id number] [address] STATES OF AMERICAPerformed By: #### [id number] ####[facility] LABCLIA [id number] [place] [id number] [place] Comprehensive metabolic 2000 panelon 59-39-3165Ynwqeoi [Mass/Vol]3.8 g/dLLow 3.9-4.9CUniversity Hospitals [facility] Medical Center on above:Order Comment: Specimen Type: BLOOD SPECIMENOrdering Facility: [facility] Address:[address] [place], [place] [address]Performed By: #### 2532-0, ####[facility] [facility] [id number] [place] [address] [place] AMERICAALP [Catalytic activity/Vol]174 U/IRwbo66-784VggarxfujPremier Health Atrium Medical Center on above:Order Comment: Specimen Type: BLOOD SPECIMENOrdering Facility: [facility] Address:[address] [place], [place] [address]Performed By: #### 2532-0, ####[facility] [id number] [place] [address] [place] AMERICAALT [Catalytic activity/Vol]22 U/TYeqdit97-61OsrdshahzPremier Health Atrium Medical Center on above:Order Comment: Specimen Type: BLOOD SPECIMENOrdering Facility: [facility] Address:[address] [place], [place] [address]Performed By: #### 2532-0, ####[facility] LAB[facility] [id number] [place] [address] [place] Anion gap [Moles/Vol]16 mmol/LHigh8-15[facility] on above:Order Comment: Specimen Type: BLOOD SPECIMENOrdering Facility: [facility] Address:[address] [place], [place] [address]Performed By: #### 2532-0, 22036-6 ####[facility] LAB[facility] [id number] [place] [address] [place] AMERICAAST [Catalytic activity/Vol]28 U/MPatoni91-44LqdkvqkjjPremier Health At[facility] Center on above:Order Comment: Specimen Type: BLOOD SPECIMENOrdering Facility: [facility] Address:[address] [place], [place] [address]Performed By: #### 2532- 0, 91367-6 ####[facility] [id number] [facility] [place] [address] [place] AMERICABilirubin [Mass/Vol]0.7 mg/dLNormal0.2-1.3CKindred HealthcareComment on above:Order Comment: Specimen Type: BLOOD SPECIMENOrdering Facility: [facility] Address:[address] [place], [place] [address]Performed By: #### 2532-0, 85152-5 ####[facility] [id number] [place] [address] [place] AMERICACalcium [Mass/Vol]9.1 mg/dLNormal 8.5-10.2CKindred HealthcareComment on above:Order Comment: Specimen Type: BLOOD SPECIMENOrdering Facility: [facility] Address:[address] [place], [place] [address]Performed By: #### 2532-0, 11385-0 ####[facility] [id number] [place] [address] [place] AMERICAChloride [Moles/Vol]98 mmol/YGmhmmn21-173MjahtxvztUc West Chester HospitalComment on above:Order Comment: Specimen Type: BLOOD SPECIMENOrdering Facility: [facility] Address:[address] [place], [place] [address]Performed By: #### 2532-0, 05937-8 ####[facility] [id number] [place] [address] [place] AMERICACO2 [Moles/Vol]28 mmol/BFzyxzo28-06RdmhutwhuUc [facility] Hospital Comment on above:Order Comment: Specimen Type: BLOOD SPECIMENOrdering Facility: [facility] Address:[address] [place] [address] Performed By: #### 2532-0, 16170-1 ####[facility] [id number] [place] [address] [place] Creatinine [Mass/Vol]1.14 mg/dLNormal0.73-1.22[facility] on above:Order Comment: Specimen Type: BLOOD SPECIMENOrdering Facility: [facility] Address:[address] [place] [address] Performed By: #### 2532-0, 71589-0 ####[facility] LABSOUTHWE[facility] [id number] [address] Creatinine and Glomerular filtration rate.predicted panel (S/P/Bld)68 mL/min/1.73m???Normal>=60[facility] on above:Order Comment: Specimen Type: BLOOD SPECIMENOrdering Facility: [facility] Address:[address] [place], [place] [address]Result Comment: Estimated Glomerular Filtration Rate (eGFR) is [...] accurately reflect actual GFR.Performed By: #### 2532-0, 14684-7 ####[facility]IA [id number] [place] [address] [place] AMERICAGlucose [Mass/Vol]112 mg/dLHigh 74-99[facility] on above:Order Comment: Specimen Type: BLOOD SPECIMENOrdering Facility: [facility] Address:[address] [place], [place] [address]Result Comment: The [place] [employer] (ADA) provides guidance for cutoff [...] Standards of Medical Care in Diabetes 2016, [place] [employer]. Diabetes Care. 2016.39(Suppl 1).Performed By: #### 2532-0, 96716-3 ####[facility] [id number] [facility] [place] [address] [place] AMERICAPotassium [Moles/Vol]3.4 mmol/LLow3.7-5.1CUniversity Hospitals [facility] on above:Order Comment: Specimen Type: BLOOD SPECIMENOrdering Facility: [facility] Address:[address] [place], [place] [address]Performed By: #### 2532-0, 33665-3 ####[facility] [id number] [place] [address] [place] AMERICAProtein [Mass/Vol]6.6 g/dLNormal 6.3-8.0[facility] on above:Order Comment: Specimen Type: BLOOD SPECIMENOrdering Facility: [facility] Address:[address] [place], [place] [address]Performed By: #### 2532-0, ####[facility]IA [id number] [place] [address] [place] AMERICASodium [Moles/Vol]142 mmol/BEpsreg736-742FhzynfadkPremier Health Atrium Medical Center on above:Order Comment: Specimen Type: BLOOD SPECIMENOrdering Facility: [facility] Address:[address] [place], [place] [address]Performed By: #### 2532-0, ####[facility]IA [id number] [place] [address] [place] AMERICAUrea nitrogen [Mass/Vol]21 mg/dLNormal9-24[facility] Clinic ClevelandComment on above:Order Comment: Specimen Type: BLOOD SPECIMENOrdering Facility: [facility] Address:[address] [place], [place] [address]Performed By: #### 2532-0, 12707-3 ####[facility] [id number] [facility] [place]50[place]ZYFS[place] [address] [place] AMERICAFATTY ACIDS PROFILE, ESSENTIALon 82-63-7979D-LINOLENIC ACID, C18 3W343 nmol/rRKsczkv19-460TjzkyuyutUc West Chester HospitalComment on above:Order Comment: Specimen Type: BLOOD SPECIMENOrdering Facility: [facility] Address:[address] [place], [place] [address]Performed By: #### CFAPRO ####[facility]IESCLIA [id number] [place], [place] [address]VNPDCAXXE ACID, C20 018 nmol/mLNormal8-43[facility] on above:Order Comment: Specimen Type: BLOOD SPECIMENOrdering Facility: [facility] Address:[address] [place], [place] [address]Performed By: #### CFAPRO ####[facility]IESCLIA [id number] [place] [address] ARACHIDONIC ACID, C20 0A4578 nmol/eQDrwdtz245-0128AureyfkebUc [facility] Hospital Comment on above:Order Comment: Specimen Type: BLOOD SPECIMENOrdering Facility: [facility] Address:[address] [place], [place] [address] Performed By: #### CFAPRO ####[facility]ATORIESCLIA [id number] [place], [place] [address]TLB, C22 6W399 nmol/nXXqekzo92-202OpyrcxaufPremier Health Atrium Medical Center on above:Order Comment: Specimen Type: BLOOD SPECIMENOrdering Facility: [facility] Address:[address] [place], [place] [address]Performed By: #### CFAPRO ####[facility]IESCLIA [id number] [place], [place] [address]OXUASEMALG ACID, C22 14 nmol/mLNormal1-10[facility] on above:Order Comment: Specimen Type: BLOOD SPECIMENOrdering Facility: [facility] Address:[address] [place], [place] [address]Performed By: #### CFAPRO ####[facility]IESCLIA [id number] [place], [place] [address]HHL, C22 5W330 nmol/mLNormal 13-75[facility] on above:Order Comment: Specimen Type: BLOOD SPECIMENOrdering Facility: [facility] Address:[address] [place], [place] [address]Performed By: #### CFAPRO ####[facility]IESCLIA [id number] [place], [place] [address]WDA, C22 5W613 nmol/mLNormal 6-55[facility] on above:Order Comment: Specimen Type: BLOOD SPECIMENOrdering Facility: [facility] Address:[address] [place], [place] [address]Performed By: #### CFAPRO ####[facility]IESCLIA [id number] [place], [place] [address]IAU, C22 4W618 nmol/mLNormal 10-40[facility] on above:Order Comment: Specimen Type: BLOOD SPECIMENOrdering Facility: [facility] Address:[address] [place], [place] [address]Performed By: #### CFAPRO ####[facility]IESCLIA [id number] [place], [place] [address]FNG FATTY ACIDS PROF, ESSENTIAL SPSee NoteNormalCUniversity Hospitals [facility] on above:Order Comment: Specimen Type: BLOOD SPECIMENOrdering Facility: [facility] Address:[address] [place], [place] [address]Result Comment: Authorized individuals can access the [facility]ngel Report using the following link:h [email or web address] By: CHACORTA [address] [place], [place] [address]Tulletlrje Director: Anne-Marie Correa MD, PhDCLIA Number: [id number] By: #### CFAPRO ####[facility]IESCLIA [id number] [place], [place] [address]UKX, C20 5W322 nmol/mLNormal8-130[facility] on above:Order Comment: Specimen Type: BLOOD SPECIMENOrdering Facility: [facility] Address:[address] [place], [place] [address]Performed By: #### CFAPRO ####[facility]ATORIESCLIA [id number] [place], [place] [address]S-[id number] ACID, C18 3W620 nmol/yIVpswyq28-504UbgngazfmPremier Health Atrium Medical Center on above: Order Comment: Specimen Type: BLOOD SPECIMENOrdering Facility: [facility] Address:[address] [place], [place] [address]Performed By: #### CFAPRO ####[facility]IESCLIA [id number] [place] [address] E-O-KHKXXJWVH C20:3W693 nmol/vMFodkec38-478BxgrpycpaPremier Health [facility] Center on above:Order Comment: Specimen Type: BLOOD SPECIMENOrdering Facility: [facility] Address:[address] [place], [place] [address]Performed By: #### CFAPRO ####[facility]IESCLIA [id number] [place], [place] [address]ODHAGCLMRYEH ACID, C16 1W926 nmol/yNDqbmal20-66SoihajyjkUc [facility] Comment on above:Order Comment: Specimen Type: BLOOD SPECIMENOrdering Facility: [facility] Address:[address] [place] [address] Performed By: #### CFAPRO ####[facility]IESCLIA [id number] [place], [place] [address]QZBTNBGEBOCHYT, FATTY ACID PROFILENormalNormal [facility] on above:Order Comment: Specimen Type: BLOOD SPECIMENOrdering Facility: [facility] Address:[address] [place], [place] [address]Result Comment: Normal fatty acid profile.Results reviewed and interpreted by Rosemarie Painter MD, PhD, FACMGINTERPRETIVE INFORMATION: Fatty Acids Profile, Essential Ser/PlasThis test does not screen for disorders of peroxisomalbiogenesis/function.This test was developed and its performance characteristicsdetermined by [employer]. It has not been cleared orapproved by the [place] Food and Drug Administration. This test wasperformed in a CLIA certified laboratory and is intended forclinical purposes.Performed By: #### CFAPRO ####[facility]IESCLIA [id number] [place], [place] [address]CWDGJT ACID, C12 022 nmol/mLNormal1-200[facility] on above:Order Comment: Specimen Type: BLOOD SPECIMENOrdering Facility: [facility] Address:[address] [place] [address] Performed By: #### CFAPRO ####[facility]IESCLIA [id number] [place], [place] [address]PTKDYXWV ACID, C18 2H82140 nmol/kTPvxvqu2398-2041 [facility] on above:Order Comment: Specimen Type: BLOOD SPECIMENOrdering Facility: [facility] Address:[address] [place], [place] [address]Performed By: #### CFAPRO ####[facility]IESCLIA [id number] [place], [place] [address]OPGQ ACID, C20 3W96 nmol/mL Normal1-35[facility] on above:Order Comment: Specimen Type: BLOOD SPECIMENOrdering Facility: [facility] Address:[address] [place], [place] [address]Performed By: #### CFAPRO ####[facility]IESCLIA [id number] [place], [place] [address]SFYQYSLQ ACID, C14 069 nmol/hUAhmahr82-109LlipclnfmPremier Health [facility] Center on above:Order Comment: Specimen Type: BLOOD SPECIMENOrdering Facility: [facility] Address:[address] [place], [place] [address]Performed By: #### CFAPRO ####[facility]IESCLIA [id number] [place] [address] NERVONIC ACID, C24 2Z3255 nmol/pVXwqtee73-299PquwdrulmPremier Health [facility] Center on above:Order Comment: Specimen Type: BLOOD SPECIMENOrdering Facility: [facility] Address:[address] [place] [address] Performed By: #### CFAPRO ####[facility]IESCLIA [id number] [place], [place] [address]OTUMI ACID, C18 6Y05925 nmol/hSKdlgtt432-4837 [facility] on above:Order Comment: Specimen Type: BLOOD SPECIMENOrdering Facility: [facility] Address:[address] [place], [place] [address]Performed By: #### CFAPRO ####[facility]IESCLIA [id number] [place], [place] [address]LXASAJOM ACID, C16 [address]35[address] nmol/oUYbnndh2678-4422IfqskkzusPremier Health [facility] Center on above:Order Comment: Specimen Type: BLOOD SPECIMENOrdering Facility: [facility] Address:[address] [place], [place] [address]Performed By: #### CFAPRO ####[facility]IESCLIA [id number] [place], [place] [address]PXRZRTBAWPO ACID, C16 3T0573 nmol/fKBkepfu72-054PfhxpaawyPremier Health At[facility] Center on above: Order Comment: Specimen Type: BLOOD SPECIMENOrdering Facility: [facility] Address:[address] [place], [place] [address]Performed By: #### CFAPRO ####[facility]IESCLIA [id number] [place] [address] STEARIC ACID, C18 0606 nmol/tINrogwf964-0925YpdhgiixaPremier Health [facility] Center on above:Order Comment: Specimen Type: BLOOD SPECIMENOrdering Facility: [facility] Address:[address] [place], [place] [address]Performed By: #### CFAPRO ####[facility]IESCLIA [id number] [place], [place] [address]DJFDK FATTY ACIDS7.7 mmol/LNormal4.5-15.0[facility] on above:Order Comment: Specimen Type: BLOOD SPECIMENOrdering Facility: [facility] Address:[address] [place] [address] Performed By: #### CFAPRO ####[facility]IESCLIA [id number] [place], [place] [address]BRUNM MONOUNSATURATED ACIDS1.9 mmol/LNormal0.9-4.7 [facility] on above:Order Comment: Specimen Type: BLOOD SPECIMENOrdering Facility: [facility] Address:[address] [place], [place] [address]Performed By: #### CFAPRO ####[facility]IESCLIA [id number] [place], [place] [address]RFFHF POLYUNSATURATED ACIDS3.1 mmol/LNormal2.1-6.2CUniversity Hospitals [facility] Center on above:Order Comment: Specimen Type: BLOOD SPECIMENOrdering Facility: [facility] Address:[address] [place], [place] [address]Performed By: #### CFAPRO ####[facility]IESCLIA [id number] [place], [place] [address]YLTQR SATURATED ACIDS2.7 mmol/LNormal1.5-5.3CUniversity Hospitals Cleveland Medical Center on above:Order Comment: Specimen Type: BLOOD SPECIMENOrdering Facility: [facility] Address:[address] [place], [place] [address]Performed By: #### CFAPRO ####[facility]IESCLIA [id number] [place], [place] [address]KPONA W30.19 mmol/LNormal0.12-0.55[facility] on above:Order Comment: Specimen Type: BLOOD SPECIMENOrdering Facility: [facility] Address:[address] [place], [place] [address]Performed By: #### CFAPRO ####[facility]IESCLIA [id number] [place], [place] [address]YSRXM W62.9 mmol/LNormal1.8-5.7CUniversity Hospitals [facility] Medical Center on above: Order Comment: Specimen Type: BLOOD SPECIMENOrdering Facility: [facility] Address:[address] [place], [place] [address]Performed By: #### CFAPRO ####[facility]IESCLIA [id number] [place] [address] TRIENE/TETRAENE RATIO0.973Izkqjg1.004-0.051CUniversity Hospitals Cleveland Medical Center on above:Order Comment: Specimen Type: BLOOD SPECIMENOrdering Facility: [facility] Address:[address] [place], [place] [address]Performed By: #### CFAPRO ####[facility]IESCLIA [id number] [place], [place] [address]DMUCXFBP ACID, C18 5B2391 nmol/dMPrjorq62-683DvnrwnsxpUc [facility] Hospital Comment on above:Order Comment: Specimen Type: BLOOD SPECIMENOrdering Facility: [facility] Address:[address] [place] [address] Performed By: #### CFAPRO ####[facility] CARECLIA [id number] [place], [place] [address]PPHG CYTOMETRY FOR LEUKEMIA/LYMPHOMA (FCLL) PERFORMABLEon 62-48-5913JPCS CYTOMETRY ORDER STATUSResults will be reported under F case ID when completedNoCleveland Clinic Mercy Hospital on above: Order Comment: Specimen Type: FLUID SPECIMENOrdering Facility: [facility] Address:[address] [place], [place] [address]Result Comment: Corrected result: Previously reported as A bone marrow sample was received for potential flow cytometry studies. Following morphologic review, flow cytometric studies will be ordered by the hematopathologist if testing is indicated. on 05/20/2024 at1:05 PM EST.Performed By: #### FCLLP ####[facility] LABCLIA [id number] [facility] [id number] [place] [address] [place] FLOW CYTOMETRY FOR LEUKEMIA/LYMPHOMA (FCLL) REFLEXon 02-17-2825OCDHDGBAH COMMENT NormalPremier Health Atrium Medical Center on above:Order Comment: Specimen Type: FLUID SPECIMENOrdering Facility: [facility] Address:[address] [place], [place] [address]Result Comment: This assay is not designed to detect minimal residual disease, plasma cell neoplasms, or myeloid antigen maturational patterns.This test was developed and its performance characteristics determined by [facility]'s [facility] [place] ([facility]). It has not been cleared or approved by the FDA. RT-PLMI is regulated under CLIA as qualified to perform high-complexity testing. This test is used for clinical purposes. It should not be regarded as investigational or for research.Performed By: #### FCLLRFLX ####[facility] LABCLIA [id number] [address] OF THE [facility]OSPITALFINAL PERFORMING LABNoCleveland Clinic Mercy Hospital on above: Order Comment: Specimen Type: FLUID SPECIMENOrdering Facility: [facility] Address:[address] [place], [place] [address]Result Comment: Diagnostic interpretation performed at [facility], [address] [place] [address] CLIA# [id number] Director: Ramos Strickland M.D. Performed By: #### FCLLRFLX ####[facility] LABCLIA [id number] [address] FLOW CYTOMETRY RESULTSNoCleveland Clinic Mercy Hospital on above:Order Comment: Specimen Type: FLUID SPECIMENOrdering Facility: [facility] Address:[address] [place], [place] [address]Result Comment: Specimen type: Pleural fluidTotal nucleated cell count: 320,000 totalRed blood cellcount: N/ADifferential (serous fluid): See body fluid manual differentialMorphology comments: UnremarkableViability: 91%Flow Cytometry Body Fluid ImmunophenotypingMarker Normal Cell Type Result (Lymphocytes)CD3 T-cells Normal PatternCD4 T-cell subset Normal PatternCD5 T-cells Normal PatternCD7 T/NK-cells Normal PatternCD8 T-cell subset Normal NzblqqlRA30 Myeloid Normal ScijdtmEB90/56 NK cells Normal MfarzgdNP94 B-cells Normal RcnxtugJL44 Blasts Normal AhhbpgeYZ60 Ramos-leukocyte Normal Patternkappa/lambda B-cells PolytypicFlow cytometric analysis [...] [facility] LABCLIA [id number] [place] [address] [place] AMERICAGROSS DESCRIPTION NormalPremier Health Atrium Medical Center on above:Order Comment: Specimen Type: FLUID SPECIMENOrdering Facility: [facility] Address:[address] [place], [place] [address]Result Comment: A. Pleural Cavity, RightRECEIVED 4 ML OF PLEURAL FLUID Entirely submitted for Flow Cytometry.Performed By: #### FCLLRFLX ####[facility] LABIA [id number] [address] STATES OF THE CHRIST HOSPITALINTERPRETATIONNormal [facility] on above:Order Comment: Specimen Type: FLUID SPECIMENOrdering Facility: [facility] Address:[address] [place], [place] [address]Result Comment: There is no evidence of involvement by a lymphoproliferative disorder or abnormal blast population. Correlation with the clinical findings is suggested.FRANCOISE/SHELBY 05/20/24 Performed By: #### FCLLRFLX ####[facility] LABIA [id number] [place] [address] [place] AMERICAGlucose Fld-mCncon 44-54-9218Xwtyvsl (Body fld) [Mass/Vol]106 mg/dLNormalSee CommentPremier Health Atrium Medical Center on above: Order Comment: Specimen Type: FLUID SPECIMENOrdering Facility: [facility] Address:[address] [place], [place] [address]Result Comment: Synovial fluid: Synovial fluid glucose measurement [...] document C49A. RAJEEV Bui: Clinical Laboratory Standards [place]: 2006.Performed By: #### 2344-0, 2529-6, 2881-1, 05193-9, 23623-2, 1747-5 ####[facility] LABCLIA [id number] [facility] SYSTEMSK [address] [place] LDH Fld-cCncon 38-54-7123PUL (Body fld) [Catalytic activity/Vol]86 U/LNormalSee CommentPremier Health Atrium Medical Center on above:Order Comment: Specimen Type: FLUID SPECIMENOrdering Facility: [facility] Address:[address] [place], [place] [address]Result Comment: Pleural fluids: Pleural fluid lactate dehydrogenase [...] document C49A. RAJEEV Bui: Clinical Laboratory Standards [place]: 2007.Reference: 2. Rafael STARK, Fei Doyle. Body [...] to 533.Performed By: #### 2344-0, 2529-6, 2881-1, 86533-6, 94669-9, 1747-5 ####[facility] LABCLIA [id number] [place] [address] [place] OF AMERICALDH SerPl-cCncon 33-71-8958PJZ [Catalytic activity/Vol]209 U/TChvkqm899-543IijankwyvPremier Health [facility] Center on above:Order Comment: Specimen Type: BLOOD SPECIMENOrdering Facility: [facility] Address:[address] [place], [place] [address]Result Comment: Hemolysis present. The origin of the hemolysis, in vitro versus an in vivo hemolytic process, cannot be distinguished via this assay alone. In vitro hemolysis may lead to non-physiological (spurious) elevation in lactate dehydrogenase (LDH) results. Theresult should be interpreted in context of the clinical setting and other test results. Suggest reorder as clinically indicated.Performed By: #### 2532-0, 99922-5 ####[facility] LABCLIA [id number] [place] [address] [place] AMERICAMANUAL DIFFERENTIAL, BODY FLUIDon 93-20-4165TDV TTL, BODY BQKTK268 cells countedNormalCUniversity Hospitals Cleveland Medical Center on above:Order Comment: Specimen Type: FLUID SPECIMENOrdering Facility: [facility] Address:[address] [place], [place] [address]Performed By: #### CAPO, [id number], [id number] ####[facility] LABCLIA [id number] [place] [address] [place] AMERICAEOSIN%, BF2 %NormalUc West Chester HospitalComcaro center on above:Order Comment: Specimen Type: FLUID SPECIMENOrdering Facility: [facility] [facility] Address:[address] [place], [place] [address]Performed By: #### CAPO, [id number], [id number] ####[facility] LABCLIA [id number] [place] [address] [place] OF AMERICALYMPH%, BF80 %Kykv00-17YzqllutjoUc [facility] Comment on above:Order Comment: Specimen Type: FLUID SPECIMENOrdering Facility: [facility] Address:[address] [place], [place] [address]Result Comment: Corrected result: Previously reported as 75 % on 05/19/2024 at 6:29 AM EST.Performed By: #### CCDIONICIO, [id number], [id number] ####[facility] LABCLIA [id number] [place] [id number] [place] OF AMERICAMACRO%, BF4 %Oct24-51RjidoikjmUc West Chester HospitalComment on above:Order Comment: Specimen Type: FLUID SPECIMENOrdering Facility: [facility] Address:[address] [place], [place] [address]Performed By: #### CCDIONICIO, [id number], [id number] ####[facility] LABCLIA [id number] [place] [address] [place] AMERICANEUT%, BF14 %High0-1 [facility] HospitalComment on above:Order Comment: Specimen Type: FLUID SPECIMENOrdering Facility: [facility] Address:[address] [place], [place] [address]Performed By: #### CCDIONICIO, [id number], [id number] ####[facility] LABCLIA [id number] [place] [address] [place] AMERICAREAC LYMPH %, BFNormalCKindred Healthcare Comment on above:Order Comment: Specimen Type: FLUID SPECIMENOrdering Facility: [facility] Address:[address] [place], [place] [address]Result Comment: Corrected result: Previously reported as 5 % on 05/19/2024 at 6:29 AM EST.Performed By: #### CCDIONICIO, [id number], [id number] ####[facility] LABCLIA [id number] [place] [address] [place] OF AMERICAMicroorganism Spec Culton 20-81-4220Qqmeuingtdrrp identified Cx Nom (Unsp spec)CULTURE, AFB: No Acid Fast Bacilli isolated after 42 days AFB STAIN: No acid fast bacilli seen by fluorochrome stainNoOhio State University [facility] Comment on above:Performed By: #### 611-4, 97718-4 ####[facility] LABCLIA [id number] [address] OF AMERICAPH PLEURAL FLUID (FOR USE OUTSIDE OF [facility])on 68-76-9616eT (Body fld)7.9 [pH]NormalUc West Chester HospitalComment on above:Order Comment: Specimen Type: FLUID SPECIMENOrdering Facility: [facility] Address:[address] [place], [place] [address]Result Comment: No reference range has been established for this specimen type.This test was developed, and its performance characteristics determined by the [facility] Department of Pathology and Laboratory Medicine. It has not been cleared or approved by the FDA. The [facility] Department of Pathology and Laboratory Medicine is regulated under CLIA as qualified to perform high-comple xity testing. This test is used for clinical purposes. It should not be regarded as investigationalor for research.Performed By: #### [id number] ####[facility] LABCLIA [id number] [address] OF AMERICAProt Fld-mCncon 23-02-5509Eutyyse (Body fld) [Mass/Vol]2.2 g/dLNormalSee CommentPremier Health Atrium Medical Center on above: Order Comment: Specimen Type: FLUID SPECIMENOrdering Facility: [facility] Address:[address] [place], [place] [address]Result Comment: Serous fluids: Effusions are the accumulation [...] document C49A. RAJEEV Bui: Clinical Laboratory Standards [place]: 2006.Performed By: #### 2344-0, 2529-6, 2881-1, 91198-2, 10682-3, 1747-5 ####[facility] LABCLIA [id number] [address] [address] [place] OF AMERICATrigl Fld-mCncon 05-18-2024 Triglyceride (Body fld) [Mass/Vol]13 mg/dLNoOhio State University [facility] Comment on above:Order Comment: Specimen Type: FLUID SPECIMENOrdering Facility: [facility] Address:[address] [place], [place] [address]Result Comment: Synovial fluids: Synovial fluid triglycerides measurement [...] document C49A. RAJEEV Bui: Clinical Laboratory Standards [place]; 2007.Performed By: #### 2344-0, 2529-6, 2881-1, 21164-9, 57633-3, 1747-5 ####[facility] LABCLIA [id number] [address] [address] [place] OF AMERICAXR CHEST 2V FRONTAL/LATon 39-68-7378BC CHEST 2V FRONTAL/LATNoOhio State University [facility] XR Chest PA and Lateralon 91-98-7834OVCHXWVMNT: Slight decrease in the right pleural effusion.. Sustainability Coach: ALONSO Transcribe Date/Time: May 18 2024 1:40P Dictated by : REBECCA LOVELACE MD This examination was interpreted and the report reviewed and electronically signed by: REBECCA LOVELACE MD on May 18 2024 1:46PM [facility] DIVISION OF RADIOLOGY* * *Final Report* * [...] in the thoracic spine. DIVISION OF RADIOLOGYProvider, [facility] [place] - 05/18/2024 * * *Final Report* * [...] Slight decrease in the right pleural effusion.. Sustainability Coach: ALONSO Transcribe Date/Time: May 18 2024 1:40P Dictated by : REBECCA LOVELACE MD This examination was interpreted and the report reviewed and electronically signed by: REBECCA LOVELACE MD on May 18 2024 1:46PM EST [facility] CenterRadiology Study observation (narrative)[facility] CenterXR Chest PA and LateralOrdered By: Ccf Provider on 87-60-8663Oexpxdcop ClinicANES POSTPROC EVALon 64-89-1667TJKT POSTPROC EVALHNO ID: [id number] Author: STEVEN DONNELLY MD Service: Anesthesiology Author Type: Anesthesiologist Type: Anesthesia Postprocedure Evaluation Filed: 04/28/2024 16:14 Note Text: POST ANESTHESIA EVALUATION NOTE : 1950 Procedure Summary Date: 04/28/24 Room / Location: [facility] Endoscopy - ENDO Anesthesia Start: 1129 Anesthesia Stop: 1210 Procedures: EGD DIAGNOSTIC COLONOSCOPY DIAGNOSTIC Diagnosis: Diarrhea, unspecified type Scheduled Providers: Vic Ponce MD; Steven Donnelly I, MD; Julian Batista APRN.LINING STAMPER Responsible Provider: Steven Donnelly I, MD Anesthesia [...] April 28, 2024 TIME: 4:14 PM CSN: [id number] HospitalANES PRE-OPon 49-71-1742IFWK PRE-OPHNO ID: [id number] Author: STEVEN DONNELLY MD Service: Anesthesiology Author Type: Anesthesiologist Type: Anesthesia Preprocedure Evaluation Filed: 04/28/2024 11:18 Note Text: ANESTHESIOLOGY DAY OF SURGERY NOTE : 1950 Procedure Information Date/Time: 04/28/24 1230 Scheduled providers: Vic Ponce MD; Steven Donnelly I, MD; Julian Batista APRN.LINING STAMPER Procedures: EGD DIAGNOSTIC COLONOSCOPY DIAGNOSTIC Location: [facility] Endoscopy - ENDO Estimated body mass [...] and consent discussed: yes. Patient / Responsible Libertarian agrees to proceed: yes Patient / Surrogate agrees to blood products: blood products not planned DNR status not reviewed with patient and/or family prior to surgery. Significant changes in the patient condition since the History and Physical, not otherwise documented in primary service progress note: no. No vitals data found for the desired time range. Outpatient Medications as of 04/28/2024 Medication Sig - FXLJESA-AUEXPDOIG-CBVE ORAL Take by mouth. - iv contrast [...] April 28, 2024 TIME: 11:17 AM CSN: [id number] Hospital PRE-OPNormalUc West Chester HospitalColonoscopyon 09-13-1735ZsiamtvpfhfPwpihygj Hosptial Gastrointestinal Endoscopy Patient Name: Sav Raymundo Procedure Date: 04/28/2024 11:16 AM Date of : 1950 Admit Type: Outpatient Age: 74 Room: [place] [address] Gender: Male Note Status: Finalized Attending MD: Vic Ponce MD, [id number] Procedure: Colonoscopy Indications: Chronic diarrhea Comorbidities Patient [...] physician, the nurse, the anesthesiologist and the service unit operator in the procedure room at 11:29 [...] prior dose. Procedure Code(s): --- Professional --- 64025, Colonoscopy, flexible; with biopsy, single or multiple Diagnosis Code(s): --- Professional --- K52.9, Noninfective gastroenteritis and colitis, unspecified CPT copyright 2020 [employer]. All rights reserved. The codes documented in this report are preliminary and upon remote medical coder review may be revised to meet current compliance requirements. Attending Participation: I personally performed the entire procedure. Scope In: 11:48:20 AM Scope Out: 11:55:18 AM (more content not included)...[facility] Colonoscopy studyon 10-94-8531[facility]lavimen [facility] Gastrointestinal Endoscopy Patient Name: Sav Raymundo Procedure Date: 04/28/2024 11:16 AM Date of : 1950 Admit Type: Outpatient Age: 74 Room: [place] [address] Gender: Male Note Status: Finalized Attending MD: Vic Ponce MD, [id number] Procedure: Colonoscopy Indications: Chronic diarrhea Comorbidities Patient [...] physician, the nurse, the anesthesiologist and the service unit operator in the procedure room at 11:29 [...] inflammation, mass, polyps, s (more content not included)...PROVATIONWilson Healthiology Study observation (narrative)[facility] Study observation Narrativeon 60-37-5853Qriytnol Hosptial Gastrointestinal Endoscopy Patient Name: Sav Raymundo Procedure Date: 04/28/2024 11:17 AM Date of : 1950 Admit Type: Outpatient Age: 74 Room: [place] [address] Gender: Male Note Status: Finalized Attending MD: Vic Ponce MD, [id number] Procedure: Upper GI endoscopy Indications: Dysphagia, Heartburn, Nausea with vomiting Providers: Vic Ponce MD, Riley Almonte, RN, Abbie Ivey, RN, Adri Bradley, EVAN (Assisting Nurse) Patient Profile: This is a 74 year old male. Refer to note in patient chart for documentation of history and physical. Patient has symptoms of acute nausea, acute vomiting and chronic vomiting. Referring Physician: Sue Terrell MD (Referring MD) [...] physician, the nurse, the anesthesiologist and the service unit operator in the procedure room at 11:29 [...] from the incisors. T (more content not included)...PROVATIONOhiohealth Southeastern Medical CenterRadiology Study observation (narrative)[facility] PHYSICALon 46-92-4578CBADLIQ PHYSICALHNO ID: [id number] Author: VIC PONCE MD Service: Gastroenterology Author [...] Plan: MAC Additional Comments: None Vic Ponce MDSaint Monica's Home 95-45-5003WEZOSMA PROG HNO ID: [id number] Author: JAHAIRA HOOD RN Service: Nursing Author [...] REFERRAL (RECOMMENDATION): None Electronically Signed By: Jahaira CristobalLowell General Hospital HNO ID: [id number] Author: MAUREEN LAUGHLIN RN Service: ? Author [...] REFERRAL (RECOMMENDATION): None Electronically Signed By: Maureen LaughlinVibra Hospital of Southeastern [facility] NormalOhioHealth Grady Memorial HospitalAL PATHOLOGYon 03-28-9397RPQX REPORTNoal [facility] HospitalComment on above:Order Comment: Specimen Type: TISSUE SPECIMEN [facility] Address: [address] [place], [place] [address]Result Comment: Surgical Pathology Report Case: [id number] Authorizing Provider: Vic Ponce MD Collected: 04/28/2024 11:37 AM Ordering Location: [facility] Received: 04/28/2024 01:31 PM Endoscopy - ENDO Pathologist: Simba Frias MD, PhD Specimens: A) - Small Bowel, Duodenum, Biopsy B) - Stomach, Biopsy C) - Stomach, Polyp, Biopsy D) - Esophagus, Biopsy E) - Small Bowel, Ileum, Biopsy F) - Colon, Biopsy, random colonPerformed By: #### S #### [facility] CLIA [id number] [address] [place], [place] [address] [address] [place] OF AMERICADIAGNOSIS COMMENTComment F: This pattern of [...] should be of value in this differential. [facility] SchoolComcaro center on above:Order Comment: Specimen Type: TISSUE SPECIMEN [facility] Address: [address] [place], [place] [address]Performed By: #### S #### [facility] CLIA [id number] [address] [place] [address] DIAGNOSISNoCambridge HospitalComcaro center on above:Order Comment: Specimen Type: TISSUE SPECIMEN [facility] Address: [address] [place], [place] [address]Result Comment: A. Duodenum, biopsy: -Duodenal mucosa with [...] [facility] CLIA [id number] [address] [place], [place] [address]FINNY PERFORMING LABNormal Salinas HospitalComment on above:Order Comment: Specimen Type: TISSUE SPECIMEN [facility] Address: [address] [place], [place] [address]Result Comment: Diagnostic interpretation performed at [facility], [address] [place], [place] [id number] CLIA# [id number] [employer]ing Machine Operator: Ramos Strickland M.D.Performed By: #### S #### [facility] CLIA [id number] [address] [place], [place] [address]Comment on above:Order Comment: Specimen Type: TISSUE SPECIMEN [facility] Address: [address] [place], [place] [address]Result Comment: A. Small Bowel, Duodenum, Biopsy Received [...] 2024 5:43 PM Gross examination performed at [facility], [address] [place], [place] [address]Performed By: #### S #### [facility] CLIA [id number] [address] [place], [place] [address] [facility] HOSPITALUpper GI endoscopyon 18-53-5125Ybrpy GI endoscopySymmes Hospital Gastrointestinal Endoscopy Patient Name: Sav Raymundo Procedure Date: 04/28/2024 11:17 AM Date of : 1950 Admit Type: Outpatient Age: 74 Room: [place] [address] Gender: Male Note Status: Finalized Attending MD: Vic Ponce MD, [id number] Procedure: Upper GI endoscopy Indications: Dysphagia, Heartburn, Nausea with vomiting Providers: Vic Ponce MD, Riley Almonte, RN, Abbie Ivey, RN, Adri Bradley, RN (Assisting Nurse) Patient Profile: This is a 74 year old male. Refer to note in patient chart for documentation of history and physical. Patient has symptoms of acute nausea, acute vomiting and chronic vomiting. Referring Physician: Sue Terrell MD (Referring MD) [...] physician, the nurse, the anesthesiologist and the service unit operator in the procedure room at 11:29 [...] home (ambulatory). Procedure Co (more content not included)...[facility] Informationon 81-44-2176Jsstzonkp ClinicCT ENTEROGRAPHY W IVCONon 61-38-2649VG ENTEROGRAPHY W IVCONNormalParkwood HospitalvelandCT Small bowel W contrast PO and W contrast Scarlett 81-58-9015BNPRIRBKEB: No active bowel inflammation. Small volume ascites and small right pleural effusion, both increased since 12/20/2023. Sustainability Coach: ALONSO Transcribe Date/Time: Apr 22 2024 12:06P Dictated by : MILDRED GRANDA MD This examination was interpreted and the report reviewed and electronically signed by: MILDRED GRANDA MD on Apr 22 2024 12:24PM [facility] DIVISION OF RADIOLOGY* * *Final Report* * [...] pleural catheter in place. DIVISION OF RADIOLOGYProvider, [facility] [place] - 04/22/2024 * * *Final Report* * [...] right pleural effusion, both increased since 12/20/2023. Sustainability Coach: ALONSO Transcribe Date/Time: Apr 22 2024 12:06P Dictated by : MILDRED GRANDA MD This examination was interpreted and the report reviewed and electronically signed by: MILDRED GRANDA MD on Apr 22 2024 12:24PM [facility] HealthRadiology Study observation (narrative)[facility] Small bowel W contrast PO and W contrast IVOrdered By: Ccf Provider on 04-22-2024 [facility] CenterCalprotectin (Stl) [Mass/Mass]on 44-35-9655QJZSZDSALZYG, FECAL YWVBQBEAYHBE92.0 ug/gHighNINF - 50 ug/gCleveland ClinicInterpretation and review of laboratory resultsAbnormalCleveland Zanesville City HospitalG. lamblia+Cryptosporidium sp Ag IA Ql (Stl)Ordered By: Bobby Mccallum on 31-03-8171Vhwhiqygvobqjlq sp Ag Ql (Stl)NegativeNegativeOhiohealth Southeastern Medical CenterG. lamblia Ag Ql (Stl)NegativeNegativeOhiohealth Southeastern Medical CenterInterpretation and review of laboratory resultsNormalCUniversity Hospitals Conneaut Medical CenterA single negative test result does not rule out a parasitic infection. Due to intermittent sheddingof parasites, it is recommended that three specimens collected over a 7 day period are submitted to improve detection sensitivity. [facility] County Health CenterGastrointestinal pathogens identified BRYN+probe Nom (Stl)Ordered By: Steven Olsen on 37-22-6809Ktvvcegjledxo sp DNA BRYN+probe Nom (Unsp spec)Not detectedNot DetectedOhiohealth Southeastern Medical CenterInterpretation and review of laboratory resultsNormalCLakeHealth Beachwood Medical Centeralmonella sp DNA BRYN+probe Ql (Unsp spec)Not detectedNot DetectedSt. Vincent Hospitalhiga toxin stx gene BRYN+probe Nom (Unsp spec)Not detectedNot DetectedSt. Vincent Hospitalhigella sp DNA BRYN+probe Ql (Unsp spec)Not detectedNot DetectedFulton County Health CenterLaboratory - Microbiology and Antimicrobial susceptibilityon 04-21-2024M. tuberculosis tuberculin stim IFN-g Ql (Bld)NegativeOhiohealth Southeastern Medical CenterNo Panel Informationon 93-27-8299DCZYPUWM INTERPRETATIONNormalNormalCUniversity Hospitals Conneaut Medical Center ELASTASE-1 ANHSBKMMNUEAU690 ug/g200 - PINF ug/gCleveland ClinicComment on above: Interpretation: <100 ug/g: Severe Exocrine Pancreatic Insufficiency 100-199 ug/g: Mild to Moderate Exocrine Pancreatic Insufficiency >=200 ug/g: Normal Interpretation and review of laboratory resultsNormalCMercy Health Defiance HospitalMitogen minus Nil1.19- PINFCleveland ClinicTB Gamma Interpretation Infection with M. tuberculosis complex is unlikely. If latent tuberculosis infection is highly suspected, a negative result does not rule out the infection. Specimens from immunocompromised patients and those <5 years of age may show false negative results. In case of a contact investigation, please repeat 8-12 weeks after a known exposure.[facility] CenterTB NilNINFOhiohealth Southeastern Medical CenterTB1 Ag minus NilNINFOhiohealth Southeastern Medical CenterTB2 Ag minus Nil0.00NINFFulton County Health Center25([place])D3 [facility] Dothanl-ncon 57-82-883750782858-mgyhcwzzflshtr D3 [Mass/Vol]36.6 ng/cURhvuvm05.0-80.0[facility] on above: Order Comment: Specimen Type: BLOOD SPECIMENOrdering Facility: [facility] Address:[address] [place], [place] [address]Result Comment: Classification of 25 [place] Vitamin D status:Deficiency/Insufficiency: < or = 30 ng/ml.Sufficiency/Optimal Levels: 31-80 ng/mLToxicity: > 100 ng/mL.Test performed by chemiluminescent immunoassay.Performed By: #### 1989-3 ####[facility] LABIA [id number] [place] [address] [place] RXUIWLR94-qageqhzyyavgie D3 [Mass/Vol]on 88-30-0477Iddbapyptssivg and review of laboratory resultsNoAvita Health System Ontario Hospital The reference range interval was based on an analysis of samples from healthy adults and may not pertain to children from 0-18 years old. [facility] Health CenterBLOOD TB SCREENon 04-20-2024M. tuberculosis tuberculin stim IFN-g Ql (Bld)NegativeNormalCUniversity Hospitals Cleveland Medical Center on above:Order Comment: Specimen Type: BLOOD SPECIMENOrdering Facility: [facility] Address:[address] [place], [place] [address]Performed By: #### INFTBP ####[facility] LABCLIA [id number] [facility] HE[facility] SERVICESQKESEHRXFSL37DW[place] [address] [place] AMERICAMITOGEN MINUS NIL1.19 IU/mLNormal>=0.50[facility] on above:Order Comment: Specimen Type: BLOOD SPECIMENOrdering Facility: [facility] Address:[address] [place], [place] [address]Performed By: #### INFTBP ####[facility] LABCLIA [id number] [place] [address] [place] AMERICATB GAMMA INTERPRETATIONNormal [facility] on above:Order Comment: Specimen Type: BLOOD SPECIMENOrdering Facility: [facility] Address:[address] [place], [place] [address]Performed By: #### INFTBP ####[facility] LABCLIA [id number] [place] [address] [place] AMERICATB NIL<0.00Normal<=8.00[facility] on above:Order Comment: Specimen Type: BLOOD SPECIMENOrdering Facility: [facility] Address:[address] [place], [place] [address]Performed By: #### INFTBP ####[facility] LABCLIA [id number] [place] [address] [place] AMERICATB1 AG MINUS NIL<0.00Normal<0.35 [facility] on above:Order Comment: Specimen Type: BLOOD SPECIMENOrdering Facility: [facility] Address:[address] [place], [place] [address]Performed By: #### INFTBP ####[facility] LABCLIA [id number] [place] [address] [place] AMERICATB2 AG MINUS NIL0.00 IU/mLNormal<0.35[facility] on above:Order Comment: Specimen Type: BLOOD SPECIMENOrdering Facility: [facility] Address:[address] [place], [place] [address]Performed By: #### INFTBP ####[facility] LABCLIA [id number] [place] [address] [place] AMERICAC diff Tox gens Stl Ql BRYN+probeon 04-20-2024. difficile toxin genes BRYN+probe Ql (Stl)NegativeNormal Negative for C. difficile toxin by PCRPremier Health Atrium Medical Center on above:Order Comment: Specimen Type: STOOL SPECIMENOrdering Facility: [facility] Address:[address] [place], [place] [address]Performed By: #### 26733-0, 60147-4, PANCEF ####[facility] LABCLIA [id number] AVENUEDESK [address] [place] C. difficile toxin genes BRYN+probe Ql (Stl)on 71-46-2933Sfdajoxxfwkalh and review of laboratory resultsNormalCberger hospitaland [facility] W Auto Differential panel (Bld)on 02-47-2703Lpejcxvsx (Bld) [#/Vol]0.04 10*3/uLNINF [facility] CenterBasophils/100 WBC (Bld)0.5 %[facility] CenterDifferential cell count method Nom (Bld)AutoCleveland ClinicEosinophils (Bld) [#/Vol]NINFCleveland ClinicEosinophils/100 WBC (Bld)0.0 %[facility] Medical CenterErythrocyte distribution width (RBC) [Ratio]14.7 %11.5 - 15.0 %[facility] Medical CenterHematocrit (Bld) [Volume fraction]38.0 %Low39.0 - 51.0 %[facility] Medical CenterHemoglobin (Bld) [Mass/Vol]12.0 g/dLLow13.0 - 17.0 g/dLOhiohealth Southeastern Medical CenterImmature granulocytes (Bld) [#/Vol]0.03 10*3/uLNINFOhiohealth Southeastern Medical CenterImmature granulocytes/100 WBC (Bld)0.4 %[facility] CenterInterpretation and review of laboratory resultsAbnormalCUniversity [facility]als [facility]aut [facility] Center Lymphocytes (Bld) [#/Vol]0.95 10*3/uLLowOhiohealth Southeastern Medical CenterLymphocytes/100 WBC (Bld)11.9 %Galion HospitalH (RBC) [Entitic mass]30.5 pg26.0 - 34.0 pg Espinosa ClinicMCHC (RBC) [Mass/Vol]31.6 g/dL30.5 - 36.0 g/dLOhiohealth Southeastern Medical Center MCV (RBC) [Entitic vol]96.7 fL80.0 - 100.0 fLClevelSelect Medical Specialty Hospital - Cincinnati NorthMonocytes (Bld) [#/Vol]1.03 10*3/uLHighNINFOhiohealth Southeastern Medical CenterMonocytes/100 WBC (Bld)12.9 % [facility] Medical CenterNeutrophils (Bld) [#/Vol]5.91 10*3/uLOhiohealth Southeastern Medical Center Neutrophils/100 WBC (Bld)74.3 %[facility] CenterNucleated RBC (Bld) [#/Vol]NINF [facility] CenterNucleated RBC/100 WBC (Bld) [Ratio]0.0 %/100 WBCOhiohealth Southeastern Medical Center Platelet mean volume (Bld) [Entitic vol]11.1 fL9.0 - 12.7 fLCUniversity Hospitals Conneaut Medical Center Platelets (Bld) [#/Vol]267 10*3/uLOhiohealth Southeastern Medical CenterRBC (Bld) [#/Vol]3.93 10*6/uL Low4.20 - 6.00 m/[facility] HospitalWBC (Bld) [#/Vol]7.96 10*3/uLUc [facility] ClinicBasophils (Bld) [#/Vol]0.04 10*3/uLNormal<0.11CUniversity Hospitals [facility] on above:Order Comment: Specimen Type: BLOOD SPECIMENOrdering Facility: [facility] Address:[address] [place], [place] [address]Performed By: #### 49803-3 ####[facility] LABCLIA [id number] [place] [address] [place] Basophils/100 WBC (Bld)0.5 %NormalPremier Health Atrium Medical Center on above: Order Comment: Specimen Type: BLOOD SPECIMENOrdering Facility: [facility] Address:[address] [place], [place] [address]Performed By: #### 80992- 8 ####[facility] LABIA [id number] [place] [address] [place] AMERICADifferential cell count method Nom (Bld)AutoNormalClevelDelaware County Hospital on above:Order Comment: Specimen Type: BLOOD SPECIMENOrdering Facility: [facility] Address:[address] [place], [place] [address]Performed By: #### 01147-4 ####[facility] LABCLIA [id number] [place] [address] [place] AMERICAEosinophils (Bld) [#/Vol]10*3/uL Normal<0.46[facility] on above:Order Comment: Specimen Type: BLOOD SPECIMENOrdering Facility: [facility] Address:[address] [place], [place] [address]Performed By: #### 05327-9 ####[facility] LABCLIA [id number] [place] [address] [place] AMERICAEosinophils/100 WBC (Bld)0.0 %NormalPremier Health Atrium Medical Center on above:Order Comment: Specimen Type: BLOOD SPECIMENOrdering Facility: [facility] Address:[address] [place], [place] [address]Performed By: #### 56206-0 ####[facility] LABIA [id number] [place] [address] [place] Erythrocyte distribution width (RBC) [Ratio]14.7 %Tknjpa81.5-15.0[facility] on above:Order Comment: Specimen Type: BLOOD SPECIMENOrdering Facility: [facility] Address:[address] [place], [place] [address]Performed By: #### 92729-9 ####[facility] LABIA [id number] [place] [address] [place] AMERICAHematocrit (Bld) [Volume fraction]38.0 %Low39.0-51.0[facility] on above:Order Comment: Specimen Type: BLOOD SPECIMENOrdering Facility: [facility] Address:[address] [place], [place] [address]Performed By: #### 55329-9 ####[facility] LABIA [id number] [place] [address] [place] Hemoglobin (Bld) [Mass/Vol]12.0 g/dLLow13.0-17.0[facility] Comment on above:Order Comment: Specimen Type: BLOOD SPECIMENOrdering Facility: [facility] Address:[address] [place] [address] Performed By: #### 99980-8 ####[facility] LABIA [id number] [place] [address] [place] Immature granulocytes (Bld) [#/Vol]0.03 10*3/uLNormal<0.10Uc [facility] HospitalComment on above:Order Comment: Specimen Type: BLOOD SPECIMENOrdering Facility: [facility] Address:[address] [place], [place] [address]Performed By: #### 15196-2 ####[facility] LABIA [id number] [place] [address] [place] Immature granulocytes/100 WBC (Bld)0.4 %NormalUc West Chester HospitalComment on above:Order Comment: Specimen Type: BLOOD SPECIMENOrdering Facility: [facility] Address:[address] [place] [address] Performed By: #### 85708-6 ####[facility] LABIA [id number] [place] [address] [place] Lymphocytes (Bld) [#/Vol]0.95 10*3/uLLow1.00-4.00[facility] Comment on above:Order Comment: Specimen Type: BLOOD SPECIMENOrdering Facility: [facility] Address:[address] [place] [address] Performed By: #### 84658-4 ####[facility] LABIA [id number] [address] [facility] Lymphocytes/100 WBC (Bld)11.9 %NormalPremier Health Atrium Medical Center on above: Order Comment: Specimen Type: BLOOD SPECIMENOrdering Facility: [facility] Address:[address] [place], [place] [address]Performed By: #### 98924- 8 ####[facility] LABCLIA [id number] [address]ETMCH (RBC) [Entitic mass]30.5 pg Oyfgqc17.0-34.0[facility] on above:Order Comment: Specimen Type: BLOOD SPECIMENOrdering Facility: [facility] Address:[address] [place], [place] [address]Performed By: #### 22047-7 ####[facility] LABCLIA [id number] [address]ETMCHC (RBC) [Mass/Vol]31.6 g/dL Ccjdzv18.5-36.0[facility] on above:Order Comment: Specimen Type: BLOOD SPECIMENOrdering Facility: [facility] Address:[address] [place], [place] [address]Performed By: #### 31073-0 ####[facility] LABCLIA [id number] [address] CASEY STREETV (RBC) [Entitic vol]96.7 fL Mwhnvf58.0-100.0[facility] on above:Order Comment: Specimen Type: BLOOD SPECIMENOrdering Facility: [facility] Address:[address] [place], [place] [address]Performed By: #### 52468-0 ####[facility] LABCLIA [id number] [place] [address] [place] LIFEPOINT HEALTHMonocytes (Bld) [#/Vol]1.03 10*3/uLHigh<0.87[facility] on above:Order Comment: Specimen Type: BLOOD SPECIMENOrdering Facility: [facility] Address:[address] [place], [place] [address]Performed By: #### 54895-6 ####[facility] LABCLIA [id number] [place] [address] [place] AMERICAMonocytes/100 WBC (Bld)12.9 % NormalPremier Health Atrium Medical Center on above:Order Comment: Specimen Type: BLOOD SPECIMENOrdering Facility: [facility] Address:[address] [place], [place] [address]Performed By: #### 39717-2 ####[facility] LABIA [id number] [place] [address] [place] AMERICANeutrophils (Bld) [#/Vol]5.91 10*3/uLNormal1.45-7.50[facility] on above:Order Comment: Specimen Type: BLOOD SPECIMENOrdering Facility: [facility] Address:[address] [place], [place] [address]Performed By: #### 36037-6 ####[facility] LABIA [id number] [place] [address] [place] AMERICANeutrophils/100 WBC (Bld)74.3 %NormalPremier Health Atrium Medical Center on above:Order Comment: Specimen Type: BLOOD SPECIMENOrdering Facility: [facility] Address:[address] [place] [address] Performed By: #### 01430-0 ####[facility] LABIA [id number] [place] [address] [place] Nucleated RBC (Bld) [#/Vol]10*3/uLNormal<0.01[facility] on above:Order Comment: Specimen Type: BLOOD SPECIMENOrdering Facility: [facility] Address:[address] [place] [address] Performed By: #### 24787-3 ####[facility] LABIA [id number] [place] [address] [place] Nucleated RBC/100 WBC (Bld) [Ratio]0.0 /100 WBCNormalCKindred Healthcare Comment on above:Order Comment: Specimen Type: BLOOD SPECIMENOrdering Facility: [facility] Address:[address] [place] [address] Performed By: #### 85342-8 ####[facility] LABCLIA [id number] [place] [address] [place] Platelet mean volume (Bld) [Entitic vol]11.1 fLNormal9.0-12.7CUniversity Hospitals [facility] on above:Order Comment: Specimen Type: BLOOD SPECIMENOrdering Facility: [facility] Address:[address] [place], [place] [address]Performed By: #### 00494-4 ####[facility] LABCLIA [id number] [place] [address] [place] Platelets (Bld) [#/Vol]267 10*3/aGClycsa090-682IlmciuqpsUc West Chester HospitalComment on above:Order Comment: Specimen Type: BLOOD SPECIMENOrdering Facility: [facility] Address:[address] [place] [address] Performed By: #### 16097-2 ####[facility] LABCLIA [id number] [place] [address] [place] RBC (Bld) [#/Vol]3.93 10*6/uLLow4.20-6.00[facility] on above:Order Comment: Specimen Type: BLOOD SPECIMENOrdering Facility: [facility] Address:[address] [place], [place] [address]Performed By: #### 42727-9 ####[facility] LABCLIA [id number] [place] [address] [place] AMERICAWBC (Bld) [#/Vol]7.96 10*3/uLNormal3.70-11.00[facility] on above:Order Comment: Specimen Type: BLOOD SPECIMENOrdering Facility: [facility] Address:[address] [place], [place] [address]Performed By: #### 69850-2 ####[facility] LABCLIA [id number] [place] [address] [place] THE CHRIST HOSPITALCELIAC SCREENon 20-84-6569NEQKJ DEAMIDATED IGA QUALNegativeNormalNegative, Test not IndicatedPremier Health Atrium Medical Center on above:Order Comment: Specimen Type: BLOOD SPECIMENOrdering Facility: [facility] Address:[address] [place], [place] [address]Result Comment: This is used as an aid in diagnosis of celiac disease. Clinical correlation is required.The following results were obtained with an [employer] QUANTA Lite Gliadin IgA SALBADOR Gliadin. Gliadin IgA values obtained with different manufacturers' assay methods may not be used interchangeably. The magnitude of the reported IgA levels cannot be correlated to an endpoint titer. Performed By: #### [id number] ####[facility] LABCLIA [id number] [place] [address] [place] Gliadin peptide IgA Qn (S)4 UnitsNormal<20[facility] on above:Order Comment: Specimen Type: BLOOD SPECIMENOrdering Facility: [facility] Address:[address] [place], [place] [address]Performed By: #### [id number] ####[facility] LABCLIA [id number] [place] [address] [place] AMERICAINTERPRETATIONNo serological evidence of celiac disease, however, if celiac disease is clinically suspected and patient is not on gluten-free diet, histological diagnosis may be considered. HLA testing may help with risk assessment.NormalPremier Health Atrium Medical Center on above:Order Comment: Specimen Type: BLOOD SPECIMENOrdering Facility: [facility] Address:[address] [place], [place] [address]Performed By: #### [id number] ####[facility] LABCLIA [id number] [place] [address] [place] TRANSGLUTAMINASE IGA ABS INTERPRETATIONNegativeNormalNegativePremier Health Atrium Medical Center on above:Order Comment: Specimen Type: BLOOD SPECIMENOrdering Facility: [facility] Address:[address] [place], [place] [address]Result Comment: The following results were obtained with ThoughtLeadrA Pruffie R h-tTG IgA SALBADOR.???R h-tTG IgA values obtained with different manufacturers' assay methods may not be used interchangeably. The magnitude of the reported IgA levels cannot be corelated to an endpoint???concentration.This is used as an aid in diagnosis of celiac disease. Clinical correlation is required.Performed By: #### [id number] ####[facility] LABCLIA [id number] [place] [address] [place] AMERICAtTG IgA Qn (S)<2Normal <4ClevelDelaware County Hospital on above:Order Comment: Specimen Type: BLOOD SPECIMENOrdering Facility: [facility] Address:[address] [place], [place] [address]Performed By: #### [id number] ####[facility] LABCLIA [id number] [place] [address] [place] AMERICACRP SerPl-mCncon 45-83-0778KNP [Mass/Vol]8.4 mg/dLHigh<0.9CUniversity Hospitals [facility] Medical Center on above:Order Comment: Specimen Type: BLOOD SPECIMENOrdering Facility: [facility] Address:[address] [place], [place] [address]Performed By: #### 1988-5, 14894-7, 3034-6, 71313-8 ####[facility] LABCLIA [id number] [place] [address] [place] AMERICACalprotectin (Stl) [Mass/Mass]on 87-73-1499TOYWKGVPTHNU, FECAL CXUSZSDHEJPG56.0 ug/gHigh<50[facility] on above:Order Comment: Specimen Type: STOOL SPECIMENOrdering Facility: [facility] Address:[facility] [place], [place] [address]Performed By: #### 56099-2, 87968-9, [facility] ####[facility] LABCLIA [id number] [address] [place] AMERICACobalamin (Vitamin B12) [Mass/Vol]on 79-08-0460Uwbtlhawdowyqc and review of laboratory resultsAbnormalCberger hospitaland [facility] Comprehensive metabolic 2000 panelon 01-19-9292Wxqjecs [Mass/Vol]3.8 g/dLLow3.9 - 4.9 g/dLSavannah ClinicALP [Catalytic activity/Vol]141 U/LHigh38 - 113 U/L [facility] ClinicALT [Catalytic activity/Vol]14 U/L10 - 54 U/LCUniversity Hospitals [facility] Anion gap [Moles/Vol]15 mmol/L8 - 15 mmol/LCleveland ClinicAST [Catalytic activity/Vol]27 U/L14 - 40 U/LCleveland ClinicBilirubin [Mass/Vol]0.9 mg/dL0.2 - 1.3 mg/dLSavannah ClinicCalcium [Mass/Vol]9.1 mg/dL8.5 - 10.2 mg/dLSavannah ClinicChloride [Moles/Vol]101 mmol/L98 - 107 mmol/LCleveland ClinicCO2 [Moles/Vol]24 mmol/L22 - 30 mmol/LCleveland ClinicCreatinine [Mass/Vol]1.23 mg/dLHigh0.73 - 1.22 mg/dLOhiohealth Southeastern Medical CenterGFR/1.73 sq M.predicted among non- blacks MDRD (S/P/Bld) [Vol rate/Area]62 mL/min/{1.73_m2}- [facility] Comment on above:Estimated Glomerular Filtration Rate [...] not accurately reflect actual GFR.Glucose [Mass/Vol] 105 mg/hBFypm33 - 99 mg/dLSelect Medical OhioHealth Rehabilitation Hospital - Dublinment on above:The [place] [employer] Association (ADA) provides guidance for cutoff [...] Standards of Medical Care in Diabetes 2016, [place] [employer]. Diabetes Care. 2016.39(Suppl 1). Potassium [Moles/Vol]3.9 mmol/L3.7 - 5.1 mmol/LCleveland ClinicProtein [Mass/Vol]7.2 g/dL6.3 - 8.0 g/dLSavannah ClinicSodium [Moles/Vol]140 mmol/L136 - 144 mmol/LCleveland ClinicUrea nitrogen [Mass/Vol]15 mg/dL9 - 24 mg/dL [facility] ClinicAlbumin [Mass/Vol]3.8 g/dLLow3.9-4.9[facility] Comment on above:Order Comment: Specimen Type: BLOOD SPECIMENOrdering Facility: [facility] Address:[address] [place] [address] Performed By: #### 1987-10, , 3033-11, ####[facility] LABCLIA [id number] [place] [address] [place] AMERICAALP [Catalytic activity/Vol]141 U/OJefw46-192ZyvlfsgfwUc West Chester HospitalComment on above:Order Comment: Specimen Type: BLOOD SPECIMENOrdering Facility: [facility] Address:[address] [place], [place] [address]Performed By: #### 1987-10, , 3033-11, ####[facility] LABCLIA [id number] [place] [id number] [place] AMERICAALT [Catalytic activity/Vol]14 U/RYcuuox80-16MnmoxwfbmPremier Health Atrium Medical Center on above:Order Comment: Specimen Type: BLOOD SPECIMENOrdering Facility: [facility] Address:[address] [place], [place] [address]Performed By: #### 1987-10, , 3033-11, ####[facility] LABCLIA [id number] [place] [address] [place] AMERICAAnion gap [Moles/Vol]15 mmol/L Normal8-15[facility] on above:Order Comment: Specimen Type: BLOOD SPECIMENOrdering Facility: [facility] Address:[address] [place], [place] [address]Performed By: #### 1987-10, , 3033-11, ####[facility] LABCLIA [id number] [place] [address] [place] AMERICAAST [Catalytic activity/Vol]27 U/VZfrhsf43-96UdgksgprgPremier Health Atrium Medical Center on above:Order Comment: Specimen Type: BLOOD SPECIMENOrdering Facility: [facility] Address:[address] [place], [place] [address]Performed By: #### , , 3033-11, ####[facility] LABCLIA [id number] [place] [address] [place] Bilirubin [Mass/Vol]0.9 mg/dLNormal0.2-1.3CUniversity Hospitals [facility] Medical Center on above:Order Comment: Specimen Type: BLOOD SPECIMENOrdering Facility: [facility] Address:[address] [place], [place] [address]Performed By: #### 1987-10, , 3033-11, ####[facility] LABCLIA [id number] [place] [id number] [place] Calcium [Mass/Vol]9.1 mg/dLNormal8.5-10.2CUniversity Hospitals [facility] Medical Center on above:Order Comment: Specimen Type: BLOOD SPECIMENOrdering Facility: [facility] Address:[address] [place], [place] [address]Performed By: #### 1987-10, , 3033-11, ####[facility] LABCLIA [id number] [place] [address] [place] Chloride [Moles/Vol]101 mmol/VRucqsr44-531ZrvdzsbokPremier Health Atrium Medical Center on above:Order Comment: Specimen Type: BLOOD SPECIMENOrdering Facility: [facility] Address:[address] [place], [place] [address]Performed By: #### 1987-10, , 3033-11, ####[facility] LABCLIA [id number] [place] [address] [place] CO2 [Moles/Vol]24 mmol/BTyjeha74-81ObxeyxzjcPremier Health Atrium Medical Center on above: Order Comment: Specimen Type: BLOOD SPECIMENOrdering Facility: [facility] Address:[address] [place], [place] [address]Performed By: #### , , 3033-11, ####[facility] LABCLIA [id number] [place] [address] [place] Creatinine [Mass/Vol]1.23 mg/dLHigh0.73-1.22[facility] on above:Order Comment: Specimen Type: BLOOD SPECIMENOrdering Facility: [facility] Address:[address] [place], [place] [address]Performed By: #### 1987-10, , 3033-11, ####[facility] LABCLIA [id number] [place] [id number] [place] Creatinine and Glomerular filtration rate.predicted panel (S/P/Bld)62 mL/min/1.73m???Normal>=60[facility] on above:Order Comment: Specimen Type: BLOOD SPECIMENOrdering Facility: [facility] Address:[address] [place] [address]Cpgnkq Comment: Estimated Glomerular Filtration Rate (eGFR) is [...] accurately reflect actual GFR.Performed By: #### 1987-10, 38492-0, 3033-11, ####[facility] LABCLIA [id number] [place] [id number] [place] AMERICAGlucose [Mass/Vol]105 mg/wCTenk55-60EdafaajwwPremier Health Atrium Medical Center on above:Order Comment: Specimen Type: BLOOD SPECIMENOrdering Facility: [facility] Address:[address] [place] [address] Comment: The [place] Diabetes Association (ADA) provides guidance for cutoff [...] Standards of Medical Care in Diabetes 2016, [place] [employer]. Diabetes Care. 2016.39(Suppl 1). Performed By: #### 1987-10, , 3033-11, ####[facility] LABCLIA [id number] [address] [address] [place] AMERICAPotassium [Moles/Vol]3.9 mmol/LNormal3.7-5.1CUniversity Hospitals [facility] Center on above:Order Comment: Specimen Type: BLOOD SPECIMENOrdering Facility: [facility] Address:[address] [place], [place] [address]Performed By: #### 1987-10, , 3033-11, ####[facility] LABIA [id number] [place] [address] [place] AMERICAProtein [Mass/Vol]7.2 g/dLNormal6.3-8.0[facility] on above:Order Comment: Specimen Type: BLOOD SPECIMENOrdering Facility: [facility] Address:[address] [place], [place] [address]Performed By: #### 1987-10, , 3033-11, ####[facility] [id number] [place] [address] [place] AMERICASodium [Moles/Vol]140 mmol/ABfepcd726-357HgsnkatcaPremier Health Atrium Medical Center on above:Order Comment: Specimen Type: BLOOD SPECIMENOrdering Facility: [facility] Address:[address] [place], [place] [address]Performed By: #### 1987-10, , 3033-11, ####[facility]BUSIA [id number] [place] [address] [place] AMERICAUrea nitrogen [Mass/Vol]15 mg/dL Normal9-24[facility] on above:Order Comment: Specimen Type: BLOOD SPECIMENOrdering Facility: [facility] Address:[address] [place], [place] [address]Performed By: #### 1987-10, , 3033-11, ####[facility] LABIA [id number] [place] [id number] [place] OF AMERICAG lamblia+Cryptosp Ag Stl Ql IAon 04-20-2024G. lamblia+Cryptosporidium sp Ag IA Ql (Stl) CRYPTOSPORIDIUM ANTIGEN BY EIA: Negative for Cryptosporidium by EIA. GIARDIA ANTIGEN BY EIA: Negative for Giardia lamblia by EIA.NormalPremier Health Atrium Medical Center on above:Performed By: #### 24646-2, 22322-8 ####[facility] LABCLIA [id number] [place] [address] [place] AMERICAGastrointestinal pathogens identified BRYN+probe Nom (Stl)on 04-20-2024 Campylobacter sp DNA BRYN+probe Nom (Unsp spec)Not detectedNormalNot Detected [facility] on above:Order Comment: Specimen Type: STOOL SPECIMENOrdering Facility: [facility] Address:[address] [place], [place] [address]Performed By: #### 19001-4, 80224-6 ####[facility] LABCLIA [id number] [place] [address] [place] AMERICASalmonella sp DNA BRYN+probe Ql (Unsp spec)Not detectedNormalNot DetectedPremier Health Atrium Medical Center on above:Order Comment: Specimen Type: STOOL SPECIMENOrdering Facility: [facility] Address:[address] [place], [place] [address]Performed By: #### 21585-8, 82671-0 ####[facility] LABIA [id number] [address] STATES OF AMERICAShiga toxin stx gene BRYN+probe Nom (Unsp spec)Not detectedNormalNot DetectedPremier Health Atrium Medical Center on above:Order Comment: Specimen Type: STOOL SPECIMENOrdering Facility: [facility] Address:[address] [place], [place] [address]Performed By: #### 39181- 1, 94529-3 ####[facility] LABCLIA [id number] [place] [address] [place] AMERICAShigella sp DNA BRYN+probe Ql (Unsp spec)Not detectedNormalNot DetectedUc West Chester Hospital Comment on above:Order Comment: Specimen Type: STOOL SPECIMENOrdering Facility: [facility] Address:[address] [place] [address] Performed By: #### 69485-7, 73250-9 ####[facility] LABCLIA [id number] [place] [address] [place] HBV surface Ag Ql (S)on 19-90-0997Tdppktdqlxyttv and review of laboratory resultsNormalCleveland Zanesville City HospitalHBV surface Ag Ser Qlon 04-20-2024 HBV surface Ag Ql (S)NegativeNormalNegativeUc West Chester HospitalComment on above:Order Comment: Specimen Type: BLOOD SPECIMENOrdering Facility: [facility] Address:[address] [address] [place], [place] [address]Performed By: #### 5195-3 ####[facility] LABCLIA [id number] [place] [address] [place] AMERICAIgA SerPl-mCncon 19-81-4615VhR [Mass/Vol]282 mg/nOSmtgpi60-488LqrewnidqUc West Chester HospitalComment on above:Order Comment: Specimen Type: BLOOD SPECIMENOrdering Facility: [facility] Address:[address] [place] [address] Performed By: #### 2458-8 ####[facility] LABIA [id number] [place] [address] [place] Iron and Iron binding capacity panelon 11-63-6619Zaeg [Mass/Vol]26 ug/dLLow41 - 186 ug/dLOhiohealth Southeastern Medical CenterIron binding capacity [Mass/Vol]256 ug/dL232 - 386 ug/dLOhiohealth Southeastern Medical CenterIron/TIBC [Molar ratio]10.2 %Low15.0 - 57.0 %Ohiohealth Southeastern Medical CenterIron [Mass/Vol]26 ug/wQPda41-417SxrmmxjdwPremier Health Atrium Medical Center on above:Order Comment: Specimen Type: BLOOD SPECIMENOrdering Facility: [facility] Address:[address] [place], [place] [address]Performed By: #### 1987-, 04292-4, 3033-6, 39155-5 ####[facility] LABIA [id number] [address] [address] [place] Iron binding capacity [Mass/Vol]256 ug/fPMwhztm351-658CqbgqbmxpUc [facility] Comment on above:Order Comment: Specimen Type: BLOOD SPECIMENOrdering Facility: [facility] Address:[address] [place], [place] [address] Performed By: #### 1987-10, , 6, 46878-3 ####[facility] [id number] [address] [address] [place] AMERICAIron/TIBC [Molar ratio]10.2 %Low15.0-57.0Uc West Chester HospitalComment on above:Order Comment: Specimen Type: BLOOD SPECIMENOrdering Facility: [facility] Address:[address] [place] [address]Vonledruu By: #### 1987-10, , 6, 54984-7 ####[facility] LABIA [id number] [address] [address] [place] OF AMERICALaboratory - Chemistry and Chemistry - challengeon 89-93-0145KTB [Mass/Vol]8.4 mg/dLHighNINF - 0.9 mg/dLOhiohealth Southeastern Medical CenterTransferrin [Mass/Vol]209 mg/dL200 - 360 mg/dLOhiohealth Southeastern Medical CenterTeqljp66-wzkporguefmeca D3 [Mass/Vol]36.6 ng/mL31.0 - 80.0 ng/mLCleveland ClinicComment on above: Classification of 25 [place] Vitamin D status: Deficiency/Insufficiency: < or = 30 ng/ml. Sufficiency/Optimal Levels: 31-80 ng/mL Toxicity: > 100 ng/mL. Test performed by chemiluminescent immunoassay. Cobalamin (Vitamin B12) [Mass/Vol]1458 pg/mVQdbx536 - 1245 pg/mLCleveland [address]. Mary'S Hospital Laboratory - Microbiology and Antimicrobial susceptibilityon 04-20-2024. difficile toxin genes BRYN+probe Ql (Stl)NegativeNegative for C. difficile toxin by PCROhiohealth Southeastern Medical CenterHBV surface Ag Ql (S)NegativeNegativeWooster Community Hospital Informationon 13-57-5688Smebbdilfimjql and review of laboratory results AbnormalFulton County Health CenterPAN ELASTASE, FECALon 04-20-2024 ELASTASE INTERPRETATIONNormalNormalNormalCUniversity Hospitals Cleveland Medical Center on above:Order Comment: Specimen Type: STOOL SPECIMENOrdering Facility: [facility] Address:[address] [place], [place] [address]Performed By: #### 40422-0, 16559-4, PANCEF ####[facility] LABCLIA [id number], [place] [address] [place] ELASTASE-1 IJGFJVXHZPGMH258 ug/gNormal>=200[facility] on above:Order Comment: Specimen Type: STOOL SPECIMENOrdering Facility: [facility] Address:[address] [place], [place] [address]Result Comment: Interpretation:<100 ug/g: Severe Exocrine Pancreatic Acqibcckmegkd292-117 ug/g: Mild to Moderate Exocrine Pancreatic Insufficiency>=200 ug/g: NormalPerformed By: #### 33406-2, 55796-7, PANCEF ####[facility] LABCLIA [id number], [place] [address] [place] Transferrin SerPl-mCncon 54-48-9793Ehwnaenuzhm [Mass/Vol]209 mg/yMDynzqa902-961 [facility] on above:Order Comment: Specimen Type: BLOOD SPECIMENOrdering Facility: [facility] Address:[address] [place], [place] [address]Performed By: #### 1988-5, 88708-7, 3034-6, 08200-5 ####[facility] LABCLIA [id number] [place] [address] [place] AMERICATransferrin [Mass/Vol]on 97-84-4894Bmaszkhkobwavf and review of laboratory resultsNormalCberger hospitaland St[facility] Vit B12 SerPl-mCncon 99-88-4222Ndjyujejb (Vitamin B12) [Mass/Vol]1458 pg/mLHigh 232-1245CUniversity Hospitals Cleveland Medical Center on above:Order Comment: Specimen Type: BLOOD SPECIMENOrdering Facility: [facility] Address:[address] [place] [address] [place], [place] [address]Performed By: #### 2132-9 ####[facility] LABCLIA [id number] [address]ANA BY IFA SCREENOrdered By: Nathaly Black on 03-31-2024 Interpretation and review of laboratory resultsNormalCleveland ClinicNuclear Ab Ql (S)NegativeNegativeUniversity Hospitals Health System on above:Anti-nuclear antibody test is used as an aid in diagnosis of systemic autoimmune diseases. Where pos itive and clinically warranted, follow-up using disease-specific testing is recommended. Low positive titers are not uncommon with advanced age, certain chronic infections, and malignancies among others. Test methodology: Indirect fluorescence immunoassay (IFA) using HEp-2 cells. [facility] NEUTRO CYTO ABon 00-78-7131Sqkhvqmjkomnkt (ANCA)Equivocal staining seen on the ethanol (indirect immunofluorescence screen) slide but negative results on follow up confirmatory testing. Anti-nuclear antibody test may be considered. Clinical correlation is required.[facility] Myeloperoxidase Ab Qn (S)[facility] Community HospitalNeutrophil cytoplasmic Ab.classic IF Ql (S)NegativeNegativeOhiohealth Southeastern Medical CenterNeutrophil cytoplasmic Ab.perinuclear IF Ql (S)NegativeNegativeOhiohealth Southeastern Medical CenterProteinase 3 Ab Qn (S)[facility] Methodist Hospitaltaff Review (ANCA)Reviewed by Sundar Hilario MD, PhDOhiohealth Southeastern Medical CenterThis test is used as an aid in diagnosis of patients with autoimmune vasculitides. The final interpretation should be done in conjunction with ANCA test results and clinical correlation. Fult[facility] County Health CenterBLOOD TB SCREENon 03-31-2024M. tuberculosis tuberculin stim IFN-g Ql (Bld)NegativeOhiohealth Southeastern Medical CenterMitogen minus Nil1.71- PINFCpromedica memorial hospital ClinicTB Gamma InterpretationInfection with M. tuberculosis complex is unlikely. If latent tuberculosis infection is highly suspected, a negative result does not rule out the infection. Specimens from immunocompromised patients and those <5 years of age may show false negative results. In case of a contact investigation, please repeat 8-12 weeks after a known exposure.[facility] Medical CenterTB Nil0.00NINFOhiohealth Southeastern Medical CenterTB1 Ag minus Nil NINOhio Valley Surgical HospitalTB2 Ag minus Nil0.00NINFFulton County Health Center CRITHIDIA LUCILIAEOrdered By: Sherie Vásquez on 54-31-5013OLU double strand Ab IF Crithidia luciliae Ql (S)NegativeNegativeOhiohealth Southeastern Medical CenterComment on above: Crithidia luciliae assay is used as an aid in diagnosis of systemic lupus erythematosus (SLE). A negative result cannot rule out SLE. Low positive titers may be seen with other systemic autoimmune diseases. Clinical correlation is required.DNA double strand Ab IF Crithidia luciliae Ql (S)Ordered By: Sherie Vásquez on 78-73-3281Cvnaaoiytusgxi and review of laboratory resultsNormal [facility]-REACTIVE PROTEINon 97-52-3652XLY [Mass/Vol]2.1 mg/dLHighNINF - 0.9 mg/dLOhiohealth Southeastern Medical CenterC3 COMPLEMENTon 88-33-5204Lwtzrynzeo C3 [Mass/Vol]168 mg/mEOmyi43 - 166 mg/dLOhiohealth Southeastern Medical CenterC4 COMPLEMENTon 20-48-8765Icsywjupnf C4 [Mass/Vol]42 mg/dL13 - 46 mg/dLParkview HealthC W Auto Differential panel (Bld)on 12-66-4450Lxfsqtmho (Bld) [#/Vol]0.04 10*3/uL NINFClevelunc medical center ClinicBasophils/100 WBC (Bld)0.6 %[facility] Medical CenterDifferential cell count method Nom (Bld)AutoCleveland ClinicEosinophils (Bld) [#/Vol]NINF [facility] Medical CenterEosinophils/100 WBC (Bld)0.0 %[facility] Medical CenterErythrocyte distribution width (RBC) [Ratio]15.6 %High11.5 - 15.0 %[facility] Hematocrit (Bld) [Volume fraction]38.4 %Low39.0 - 51.0 %[facility] Hemoglobin (Bld) [Mass/Vol]11.9 g/dLLow13.0 - 17.0 g/dLOhiohealth Southeastern Medical CenterImmature granulocytes (Bld) [#/Vol]NINFCUniversity Hospitals Conneaut Medical CenterImmature granulocytes/100 WBC (Bld)0.3 %[facility] Medical CenterInterpretation and review of laboratory results AbnormalOhiohealth Southeastern Medical CenterLymphocytes (Bld) [#/Vol]1.21 10*3/uLOhiohealth Southeastern Medical Center Lymphocytes/100 WBC (Bld)17.7 %Galion HospitalH (RBC) [Entitic mass]29.7 pg 26.0 - 34.0 pgCMadison HealthHC (RBC) [Mass/Vol]31.0 g/dL30.5 - 36.0 g/dL Galion HospitalV (RBC) [Entitic vol]95.8 fL80.0 - 100.0 fLCUniversity Hospitals Conneaut Medical Center Monocytes (Bld) [#/Vol]0.80 10*3/NINFOhiohealth Southeastern Medical CenterMonocytes/100 WBC (Bld) 11.7 %[facility] Medical CenterNeutrophils (Bld) [#/Vol]4.77 10*3/[facility] Neutrophils/100 WBC (Bld)69.7 %[facility] Medical CenterNucleated RBC (Bld) [#/Vol]NINF [facility] CenterNucleated RBC/100 WBC (Bld) [Ratio]0.0 %/100 WBCOhiohealth Southeastern Medical Center Platelet mean volume (Bld) [Entitic vol]10.7 fL9.0 - 12.7 fLCUniversity Hospitals Conneaut Medical Center Platelets (Bld) [#/Vol]243 10*3/[facility] HospitalRBC (Bld) [#/Vol]4.01 10*6/uL Low4.20 - 6.00 m/[facility] HospitalWBC (Bld) [#/Vol]6.84 10*3/uLMercy Health Lorain HospitalCK [Catalytic activity/Vol]on 35-27-3186Dxjvcvglwtrizq and review of laboratory resultsNormalCMercy Health Defiance HospitalCREATINE KINASE/CKon 98-37-1387IM [Catalytic activity/Vol]56 U/L51 - 298 U/LCpromedica memorial hospital ClinicComplement C4 [Mass/Vol]on 74-61-1579Uiqdlzteekjjgt and review of laboratory resultsNormalCUniversity Hospitals Conneaut Medical CenterComprehensive metabolic 2000 panelon 02-92-2775Seiglgz [Mass/Vol]4.1 g/dL3.9 - 4.9 g/dLSavannah ClinicALP [Catalytic activity/Vol]121 U/LHigh38 - 113 U/LCleveland ClinicALT [Catalytic activity/Vol]13 U/L10 - 54 U/LCleveland ClinicAnion gap [Moles/Vol]10 mmol/L8 - 15 mmol/LCleveland ClinicAST [Catalytic activity/Vol]22 U/L14 - 40 U/LCleveland ClinicBilirubin [Mass/Vol]0.7 mg/dL0.2 - 1.3 mg/dLSavannah ClinicCalcium [Mass/Vol]9.0 mg/dL8.5 - 10.2 mg/dLSavannah ClinicChloride [Moles/Vol]105 mmol/L98 - 107 mmol/LCleveland ClinicCO2 [Moles/Vol]27 mmol/L22 - 30 mmol/L [facility] Medical CenterCreatinine [Mass/Vol]1.26 mg/dLHigh0.73 - 1.22 mg/dLSavannah ClinicGFR/1.73 sq M.predicted among non-blacks MDRD (S/P/Bld) [Vol rate/Area]60 mL/min/{1.73_m2}- PINFCUniversity Hospitals Conneaut Medical CenterComment on above:Estimated Glomerular Filtration Rate (eGFR) is [...] actual GFR.Glucose [Mass/Vol]95 mg/dL74 - 99 mg/dL [facility] - Dublinment on above:The [place] Diabetes Association (ADA) provides guidance for cutoff [...] Standards of Medical Care in Diabetes 2016, [place] [employer]. Diabetes Care. 2016.39(Suppl 1). Potassium [Moles/Vol]4.1 mmol/L3.7 - 5.1 mmol/LCleveland ClinicProtein [Mass/Vol]7.0 g/dL6.3 - 8.0 g/dLSavannah ClinicSodium [Moles/Vol]142 mmol/L136 - 144 mmol/LCleveland ClinicUrea nitrogen [Mass/Vol]17 mg/dL9 - 24 mg/dL [facility] CenterNo Panel Informationon 38-52-2391Zfgrnemdjaqtwc and review of laboratory resultsAbnormalClevelUNC Health Chatham ClinicPROTEIN / CREATININE RATIOon 70-04-2726Qvdawle/Creatinine (U) [Mass ratio]0.17 mg/mgHighNINF - 0.15 mg/mgOhiohealth Southeastern Medical CenterComment on above:Adult Proteinuria Categories: <0.15 mg/mg is considered normal to mildly increased 0.15 - 0.50 mg/mg is considered moderately increased >0.50 mg/mg is considered severely increased KDIGO. (2013). KDIGO 2012 Clinical Practice Guideline for the Evaluation and Management of Chronic Kidney Disease. Official Journal of the International Society of Nephrology, 3(1), 1-150. Protein/Creatinine (U) [Mass ratio]on 02-46-7094Urjcgttkxi (U) [Mass/Vol]34.5 mg/dL20.0 - 300.0 mg/dLOhiohealth Southeastern Medical CenterInterpretation and review of laboratory resultsAbnormalCleveland ClinicProtein (U) [Mass/Vol]6 mg/dL0 - 20 mg/dL [facility] ClinicUrinalysis complete panel (U)on 03-30-2024 Bacteria LM.HPF (Urine sed) [#/Area]NegativeNegative /HPFOhiohealth Southeastern Medical Center Bilirubin Ql (U)NegativeNegativeSavannah ClinicClarity (Unsp spec)ClearClear Savannah ClinicColor (U)YellowYellowOhiohealth Southeastern Medical CenterEpithelial cells LM.HPF (Urine sed) [#/Area]None Seen/HPFOhiohealth Southeastern Medical CenterGlucose Test strip (U) [Mass/Vol]NegativeNegativeOhiohealth Southeastern Medical CenterHemoglobin Ql (U)NegativeNegative [facility] Medical CenterHyaline casts (Urine sed) [#/Area]4-10 /LPFAbnormal0 /LPF [facility] CenterInterpretation and review of laboratory resultsAbnormalCleveland ClinicKetones Ql (U)NegativeNegativeOhiohealth Southeastern Medical CenterLeukocyte esterase Test strip Ql (U)NegativeNegativeOhiohealth Southeastern Medical CenterNitrite Ql (U)NegativeNegative [facility] Medical CenterpH (U)6.5 [pH]NINF - 8.5Cleveland ClinicProtein (U) [Mass/Vol] NegativeNegativeOhiohealth Southeastern Medical CenterRBC LM.HPF (Urine sed) [#/Area]0-2 /HPF0-2 /HPF St. Vincent Hospitalpecific gravity (U) [Rel density]1.0101.005 - 1.030Ohiohealth Southeastern Medical CenterUrobilinogen Ql (U)0.2 EU/dL0.2-1.0 EU/dLOhiohealth Southeastern Medical CenterWBC LM.HPF (Urine sed) [#/Area]0-5 /HPF0-5 /HPFOhiohealth Southeastern Medical CenterThis test was developed and its performance characteristics determined by [facility]'s [facility]Fl[facility] Pathology and Laboratory Medicine [place] ([facility]ENTERPLMI). It has not been cleared or approved by the FDA. -[facility] is regulated under CLIA as qualified to perform high-complexity testing. Thistest is used for clinical purposes. It should not be regarded as investigational or for research. [facility] 55-15-5114VDVNDPMZOOF: - Exam indication: Pericardial Disease - The left ventricle is normal in size. Left ventricular systolic function is normal. EF = 55 5% (visual est.) - The right ventricle is normal in size. Right ventricular systolic function is normal. - The patient has not had a prior CC echocardiographic exam for comparison. * * * Final * * *[facility] Echocardiography Report: Transthoracic Echo [facility] Date of service: 03/26/2024 2:34:18 PM Ordering physician: LOUISE CESAR Indication: Pericardial Disease Technologist: Marlyn Thomas [facility] and staff Interpreting physician: Romario Lea MD [...] septum. PERICARDIUM There is no pericardial effusion. [facility]IOLOGYEchocardiographyEchocardiography Report: Transthoracic Echo [facility] Date of service: 03/26/2024 2:34:18 PM [...] * * Final * * * CC STins[facility] Image : [id number]h [facility] HospitalLVEF ECHOon 13-03-9709UU Ejection Dgqszjko46 %[facility] Comment on above:(visual est.) EF > 52 An LV Ejection Fraction of > 50% is normal No Panel Informationon 18-01-5963Tlinnayuu ClinicCNOVon 28-42-6873EZVRYmztlr Visit (BERNARD) SAV RAYMUNDO ([id number]) 1950 Date Time Provider Department 03/17/24 1:30 PM RUMA OSHEA During your visit today, we recorded the following information about you: Temperature Pulse Respiration Blood pressure 97.3 degrees 88/minute 16/minute 132/78 Weight Height 94.3 kg 1.778 m Ruma Oshea PA-C 03/17/2024 2:26 PM Signed [place] - OUTPATIENT THORACIC SURGERY CLINIC NOTE PT NAME: Sav Cantu Breanne [facility] NO: [id number] THORACIC SURGEON: Ronaldo Flood M.D. DATE OF SERVICE: 03/17/2024 PRINCIPAL DX: Pleural Effusion SURGICAL HX 11/20/2023: R VATS pleural biopsy, right construction equipment mechanic helper and doxycycline pleurodesis, right Pleurx catheter insertion, right 20Fr chest tube insertion Surgical Pathology: FINAL DIAGNOSIS A. Right pleura, biopsy: - Chronic pleuritis with mesothelial hyperplasia (see comment). B. Right pleura, biopsy: - Acute organizing and chronic pleuritis (see comment). SD11/22/2023 Diagnosis Comment A. The biopsy contains pleural [...] patient underwent R VATS pleural biopsy, right construction equipment mechanic helper and doxycycline pleurodesis, right Pleurx catheter insertion, right 20Fr chest tube insertion. He was hospitalized 12/20/23 for anasarca, possible autoimmune disease, recurrent pleural effusion. Imaging did not reveal any acute findings. Patient was admitted to [facility] and started on lasix drip, improving anasarca and pleural effusion. Pleurx catheter was drained daily with significantly decreasing output [phone]. He was worked up for an autoimmune [...] presents to clinic today for postoperative visit. [facility] RN called in 03/03 reporti (more content not included)...NormalLeary HospitalCNOVOffice Visit (MOPL) BREANNEANG Pepe ([id number]) 1950 M Date Time Provider Department 03/17/24 10:20 AM LOUISE CESAR During your visit today, we recorded the following information about you: Pulse Blood pressure Weight 82/minute 126/84 93 kg Jacqueline García RN 03/17/2024 10:25 AM Signed Ang Pepe Raymundo is a very pleasant 74 year old male who presents today for pleural effusion (November 19), still has chest drainage tube Pleurex tube After surgery, fluid still gathering around right lung. Last seen by Pulmonary Doctor? Dr. Clemente in [facility]. Outside of [facility]. Is Dr. Cesar on Care Team as Primary Grade Teacher? no Meds reviewed - Refills pended?no Since last seen Have you had any resp illnessses, COVID, exacerbations or recent visits to ER?hospital/Urgent-Care? Alexandrea December 19 x 1 week, Vaccines: Immunization History Administered Date(s) Administered COVID-19 original vaccine, age 12+ yr, monovalent (PFIZER-BIONTGMI - PURPLE TOP) 08/15/2020 08/22/2020 09/13/2020 05/10/2021 influenza (aIIV3) vaccine, age 65+ yr, trivalent, PF (FLUAD) 05/09/2020 pneumococcal conjugate (PCV13) vaccine, 13 valent (PREVNAR 13) 11/26/2016 pneumococcal polysaccharide (PPV23) vaccine, 23 valent (PNEUMOVAX 23) 02/03/2018 tetanus diphtheria (Td) vaccine, age 7+ yr, 5 Lf tetanus, PF (TENIVAC) 06/04/2018 08/30/2018 zoster (RZV) vaccine, recombinant (SHINGRIX) 08/30/2018 Modified Medical Research [place] Dyspnea Scale (MMRC) I stop for breath [...] year old male who presents to the [facility] Respiratory [place]. Consultation requested by Dr. Hopper and Dr. Ronaldo Flood. My final recommendations/evaluation will be communicated back to the requesting physician by way of shared medical record or letter via US mail. This note was partially created using [employer] Voice recognition software and is inherently subject to errors including those of syntax and ?sound-alike? substitutions which may escape proofreading. In such instances, original meaning may be extrapolated by contextual derivation. HPI on March 17, 2024: Sav Raymundo is a gentleman in his 70s, presenting to the pulmonary clinic, for chronic cough and recurrent right-sided pleural effusion s/p R-VATS pleural biopsy, right construction equipment mechanic helper and doxycycline pleurodesis, right Pleurx catheter insertion, on 12/10/2023. Mr. Kumar presents with an interesting history. He is a semiretired gentleman from the [facility], with virtually no past medical [...] and he was referred to a local salon designer. He underwent thoracentesis several times, each time pleural fluid analysis showed exudative fluid. CT scan was obtained locally which did not reveal much except pleural effusion. CT scan also shows pericardial effusion. He was then referred by his local salon designer to [facility] for a pleurodesis. In November 2023, he underwent VATS pleurodesis (mechanical and doxycycline), with pleural biopsy, and the Pleurx catheter was also placed. Analysis of the pleural fluid and biopsies of the pleura showed acute and chronic pleuritis with organization, but no malignancy. We do not have pleural fluid chemical or hematological analysis done in [facility], but cytology was negative for malignant cells. He was discharged with Pleurx catheter, and and has been draining pleural fluid about 500 to 800 mL every other day. And his dry cough has also been persistent. In December 2023, he was sent to [facility] after seeing thoracic surgery ADRIENNE for anasarca, and was admitted. His abdomen and subcutaneous tissues especially in his legs were swollen, no ascites found, but significant skin edema including blisters were seen. He improved with Lasix drip, was evaluated by rheumatology, and so far his sero (more content not included)...NormalGaebler Children's Center CHEST W IVCONon 38-76-4416IN CHEST W IVCON* * *Final Report* * [...] the report reviewed and electronically signed by: EBRT FITZPATRICK MD on Mar 21 2024 4:33PM EST [id number] HospitalNITRIC OXIDE, EXHALEDon 03-17-2024 [place], COMPLIANCE ASSOCIATE 03/17/2024 8:16 AM RESPIRATORY THERAPY ORAL EXHALED [...] Oxide (ppb) 03/17/2024 13.0 NAME: Chelsy [place], COMPLIANCE ASSOCIATE PATIENT NAME: Sav Raymundo DATE: March 17, 2024 TIME: 8:16 AM [facility] ClinicNo Panel Informationon 12-97-9919YXKU (ml/min/mmHg)21.86ml/min/mmHgCleveland ClinicDLCO LLN (ml/min/mmHg)15.50 ml/min/mmHgCleveland ClinicDLCO PREDICTED [...] ClinicVA PREDICTED (L)6.81 LCleveland ClinicVC (L) [address] LCberger hospitaland [facility] [address], [place] [address] Test Date: 2024-03-17 Pat Name: SAV RAYMUNOD Department: Room: Gender: Male Work Car 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 Lung Volumes repeatable x 3. //MW IMPRESSION: Decrease in TLC indicates restriction. The diffusing capacity is normal. Electronically Signed On 03-17-2024 14:02:07 EDT by Kathy Hartman MD ID: [id number] Name: SAV RAYMUNDO Race: White Ht: 69.96 in Wt: 209.44 lbs Age: 74 Gender: Male : 1950 Dx: Idiopathic interstitial pulmonary disease_ Smoking Hx: Non-smoker Doctor: LOUISE CESAR Test Date: 03/17/2024 Site: [facility] Tech: Was, Wes PRE-BRONCH POST-BRONCH Pre LLN [...] Volumes repeatable x 3. // PULMONARY FUNCTION LABOhiohealth Southeastern Medical CenterXR CHEST 2V FRONTAL/LATon 38-92-6287CZ CHEST 2V FRONTAL/LAT* * *Final Report* * [...] noted slightly increased. Right-sided Pleurx catheter present. Sustainability Coach: ALONSO Transcribe Date/Time: Mar 19 2024 4:42P Dictated by : KALEY CHAMBERS MD This examination was interpreted and the report reviewed and electronically signed by: KALEY CHAMBERS MD on Mar 19 2024 4:43PM EST [id number] Israel [facility] and Lateralon [id number]: Interval decrease in size of small right-sided pleural effusion with adjacent atelectasis/consolidations. Transcribed Using Voice Recognition Transcribe Date/Time: Feb 05 2024 12:51P Dictated by: SHAWN TALAVERA MD This examination was interpreted and the report reviewed and electronically signed by: SHAWN TALAVERA MD on Feb 05 2024 12:52PM [facility]* * *Final Report* * * [...] changes are present within the thoracic spine. [facility], [facility] [place] - 02/05/2024 * * *Final Report* * [...] MD on Feb 05 2024 12:52PM EST [facility] PA and LateralOrdered By: Ccf Provider on 02-05-2024 [facility] CenterCNOVon 29-90-1599RNFBLjepxf Visit (BERNARD) WILLIE RAYMUNDOTON Pepe ([id number]) 1950 M Date Time Provider Department 02/04/24 1:30 PM TITA LANDRY During your visit today, we recorded the following information about you: Temperature Pulse Respiration Blood pressure 97.1 degrees 75/minute 16/minute 120/69 Weight Height 90.7 kg 1.829 m Tita Landry APRN.TRUCK BODY BUILDER 02/05/2024 4:19 PM Signed Heart, Vascular and Thoracic [place] DEPARTMENT OF THORACIC SURGERY OUTPATIENT VISIT DATE February 04, 2024 OUTPATIENT VISIT TYPE ESTABLISHED PT NAME: Sav Cantu [facility] NO: [id number] THORACIC SURGEON: Ronaldo Flood M.D. DATE OF SERVICE: 02/04/2024 PRINCIPAL DX: Pleural Effusion SURGICAL HX 11/20/2023: R VATS pleural biopsy, right construction equipment mechanic helper and doxycycline pleurodesis, right Pleurx catheter insertion, right 20Fr chest tube insertion Surgical Pathology 11/20/2023: FINAL DIAGNOSIS A. Right pleura, biopsy: - Chronic pleuritis with mesothelial hyperplasia (see comment). B. Right pleura, biopsy: - Acute organizing and chronic pleuritis (see comment). SD/ 11/22/2023 Diagnosis Comment A. The biopsy contains [...] patient underwent R VATS pleural biopsy, right construction equipment mechanic helper and doxycycline pleurodesis, right Pleurx catheter insertion, right 20Fr chest tube insertion. He was hospitalized 12/20/23 for anasarca, possible autoimmune disease, recurrent pleural effusion. Imaging did not reveal any acute findings. Patient was admitted to [facility] and started on lasix drip, improving anasarca and pleural effusion. Pleurx catheter was drained daily with significantly decreasing output 723-195-773-100cc. He was worked up for an autoimmune [...] no suspicious rashes (more content not included)...Normal [facility] 2V FRONTAL/LATon [id number] CHEST 2V FRONTAL/LAT* * *Final Report* * [...] MD on Feb 05 2024 12:52PM EST [id number] Air Force Base Hospital Chest PA and Lateralon 68-42-6165Zuofoilwr Study observation (narrative)[facility] CenterCNOVon 52-33-7672UWHXLhnyjr Visit (BERNARD) SAV RAYMUNDO ([id number]) 1950 M Date Time Provider Department 01/06/24 2:00 PM RUMA OSHEA During your visit today, we recorded the following information about you: Temperature Pulse Respiration Blood pressure 97.2 degrees 80/minute 16/minute 137/73 Weight Height 97.3 kg 1.829 m Ruma Oshea PA-C 01/06/2024 2:58 PM Signed [place] - OUTPATIENT THORACIC SURGERY CLINIC NOTE PT NAME: Sav Raymundo [facility] NO: [id number] THORACIC SURGEON: Ronaldo Flood M.D. DATE OF SERVICE: 01/06/2024 PRINCIPAL DX: Pleural Effusion SURGICAL HX 11/20/2023: R VATS pleural biopsy, right construction equipment mechanic helper and doxycycline pleurodesis, right Pleurx catheter insertion, [...] REASON FOR VISIT: Surgery follow up HPI: Sva Raymundo is a 73 year old male [...] any acute findings. Patient was admitted to [facility] and started on lasix drip, improving anasarca and pleural effusion. Pleurx catheter was drained daily with significantly decreasing output 328-583-175-100cc. He was worked up for an autoimmune [...] clinic. Patient does have follow up with automobile relocation engineer today and salon designer next week. Will fax over recent medical information to salon designer. Patient also going on a bus trip [...] male with pm (more content not included)...Normal [facility] CHE[facility] 2V FRONTAL/LATon [id number] CHEST 2V FRONTAL/LAT* * *Final Report* * [...] MD on Jan 08 2024 9:10PM EST [id number] HospitalBasic metabolic 2000 panelon 94-71-4564Pdsml gap [Moles/Vol]14 mmol/LNormal8-15Leary HospitalComment on above:Order Comment: Specimen Type: BLOOD SPECIMEN Ordering Facility: [facility] Address: [address] [place], [place] [address]Performed By: #### 58918-2 #### [facility] CLIA [id number] [address] [place] [address] [place] OF AMERICACalcium [Mass/Vol]9.0 mg/dL Normal8.5-10.2H[facility] medical center HospitalComment on above:Order Comment: Specimen Type: BLOOD SPECIMEN Ordering Facility: [facility] Address: [address] [place], [place] [address]Performed By: #### 60819-2 #### [facility] CLIA [id number] [address] [place] [address] [place] AMERICAChloride [Moles/Vol]101 mmol/KPsjaxu45-712Uvvhjhgfo HospitalComment on above:Order Comment: Specimen Type: BLOOD SPECIMEN Ordering Facility: [facility] Address: [address] [place], [place] [address]Performed By: #### 93668-8 #### [facility] CLIA [id number] [address] [place] [address] [place] AMERICACO2 [Moles/Vol]23 mmol/L Zkbkml83-49Wyobkyymv HospitalComment on above:Order Comment: Specimen Type: BLOOD SPECIMEN Ordering Facility: [facility] Address: [address] [place], [place] [address]Performed By: #### 08512-4 #### [facility] CLIA [id number] [address] [place] [address] [place] AMERICACreatinine [Mass/Vol]0.96 mg/dLNormal0.73-1.22Hillcre HospitalComment on above:Order Comment: Specimen Type: BLOOD SPECIMEN Ordering Facility: [facility] Address: [address] [place], [place] [address]Performed By: #### 68190-4 #### [facility] [place] [id number] [address] [place] [address] [place] AMERICACreatinine and Glomerular filtration rate.predicted panel (S/P/Bld)84 mL/min/1.73m???Normal>=60[facility] HospitalComment on above:Order Comment: Specimen Type: BLOOD SPECIMEN Ordering Facility: [facility] Address: [address] [place], [place] [address]Result Comment: Estimated Glomerular Filtration Rate (eGFR) is [...] not accurately reflect actual GFR.Performed By: #### 34951-7 #### [facility] CLIA [id number] [address] [place] [address] [place] AMERICAGlucose [Mass/Vol]152 mg/dL Rjyu55-92Mugrimnyw HospitalComment on above:Order Comment: Specimen Type: BLOOD SPECIMEN Ordering Facility: [facility] Address: [address] [place], [place] [address]Result Comment: The [place] Diabetes Association (ADA) provides guidance for cutoff [...] Standards of Medical Care in Diabetes 2016, [place] [employer]. Diabetes Care. 2016.39(Suppl 1).Performed By: #### 03652-2 #### [facility] CLIA [id number] [address] [place] [address] [place] AMERICAPotassium [Moles/Vol]4.1 mmol/LNormal3.7-5.1[facility]crest HospitalComment on above:Order Comment: Specimen Type: BLOOD SPECIMEN Ordering Facility: [facility] Address: [address] [place], [place] [address]Performed By: #### 15162-1 #### [facility] CLIA [id number] [address] [place] [address] [place] AMERICASodium [Moles/Vol]138 mmol/L Xwmwtq068-798Ryxhuuoyd HospitalComment on above:Order Comment: Specimen Type: BLOOD SPECIMEN Ordering Facility: [facility] Address: [address] [place], [place] [address]Performed By: #### 28574-7 #### [facility] CLIA [id number] [address] [place] [address] [place] AMERICAUrea nitrogen [Mass/Vol]19 mg/dLNormal9-24Hillcrest HospitalComment on above:Order Comment: Specimen Type: BLOOD SPECIMEN Ordering Facility: [facility] Address: [address] [place], [place] [address]Performed By: #### 80245-1 #### [facility] CLIA [id number] [address] [place] [address] [place] AMERICACBC panel Auto (Bld)on 34-18-8626Rhkfzlftgjf distribution width (RBC) [Ratio]14.8 %Chytxv73.5-15.0 Leary HospitalComment on above:Order Comment: Specimen Type: BLOOD SPECIMEN Ordering Facility: [facility] Address: [address] [place], [place] [address]Performed By: #### 27625-4 #### [facility] CLIA [id number] [address] [place], [place] [address]Hematocrit (Bld) [Volume fraction]39.2 %Unxyih56.0-51.0Leary HospitalComment on above:Order Comment: Specimen Type: BLOOD SPECIMEN Ordering Facility: [facility] Address: [address] [place], [place] [address]Performed By: #### 41509-0 #### [facility] CLIA [id number] [address] [place], [place] [address]Hemoglobin (Bld) [Mass/Vol] 12.5 g/dLLow13.0-17.0Leary HospitalComment on above:Order Comment: Specimen Type: BLOOD SPECIMEN Ordering Facility: [facility] Address: [address] [place], [place] [address]Performed By: #### 28092-5 #### [facility] CLIA [id number] [address] [place], [place] [address]H (RBC) [Entitic mass]29.6 yaNhaxru91.0-34.0Leary HospitalComment on above:Order Comment: Specimen Type: BLOOD SPECIMEN Ordering Facility: [facility] Address: [address] [place], [place] [address]Performed By: #### 13893-1 #### [facility] CLIA [id number] [address] [place], [place] [address]MCHC (RBC) [Mass/Vol]31.9 g/nJPlkvrx38.5-36.0Hicrest HospitalComment on above:Order Comment: Specimen Type: BLOOD SPECIMEN Ordering Facility: [facility] Address: [address] [place], [place] [address]Performed By: #### 96143-7 #### [facility] CLIA [id number] [address] [place] [address] [place] AMERICAMCV (RBC) [Entitic vol]92.9 bRDjbcal79.0-100.0[facility]st HospitalComment on above:Order Comment: Specimen Type: BLOOD SPECIMEN Ordering Facility: [facility] Address: [address] [place], [place] [address]Performed By: #### 05099-3 #### [facility] CLIA [id number] [address] [place] [address] [place] AMERICANucleated RBC (Bld) [#/Vol] 10*3/uLNormal<0.01[facility]st HospitalComment on above:Order Comment: Specimen Type: BLOOD SPECIMEN Ordering Facility: [facility] Address: [address] [place], [place] [address]Performed By: #### 03248-9 #### [facility] CLIA [id number] [address] [place] [address] [place] AMERICAPlatelet mean volume (Bld) [Entitic vol]10.3 fLNormal9.0-12.7Hillcrest HospitalComment on above:Order Comment: Specimen Type: BLOOD SPECIMEN Ordering Facility: [facility] Address: [address] [place], [place] [address]Performed By: #### 53888-4 #### [facility] CLIA [id number] [address] [place] [address] [place] AMERICAPlatelets (Bld) [#/Vol]218 10*3/oAUjoaxs006-946Apfmszwfd HospitalComment on above:Order Comment: Specimen Type: BLOOD SPECIMEN Ordering Facility: [facility] Address: [address] [place], [place] [address]Performed By: #### 36312-0 #### [facility] CLIA [id number] [address]ETRBC (Bld) [#/Vol]4.22 10*6/uL Normal4.20-6.00Leary HospitalComment on above:Order Comment: Specimen Type: BLOOD SPECIMEN Ordering Facility: [facility] Address: [address] [place], [place] [address]Performed By: #### 19700-0 #### [facility] CLIA [id number] [address]ETWBC (Bld) [#/Vol]5.29 10*3/uL Normal3.70-11.00[facility] HospitalComment on above:Order Comment: Specimen Type: BLOOD SPECIMEN Ordering Facility: [facility] Address: [address] [place], [place] [address]Performed By: #### 67430-9 #### [facility] CLIA [id number] [address] 53-46-1079BJOTFGF ID: [id number] Author: JOSE ANTONIO HOPPER MD Service: Family [...] was drained daily with significantly decreased amount 638-001-190-100 mL. The electrolytes have been replaced daily. [...] for appointment?: Yes Jose Antonio Hopper MD [phone] [address] [place] [address] PCP Requested Referral Additional Provider to Provider Information: No notes on file Treatment Team: Attending Provider: Jose Antonio Hopper MD Consulting: Yehuda Dial MD Transitions of Care Critical Issues: LAB MONITORING NEEDED: BMP,Magnesium on 01/02/2024 SPECIALIST FOLLOW-UP: Dr Dial on 01/06/2024 LABS AND PROCEDURES PENDING AT DISCHARGE: No pending results. FOLLOW-UP APPOINTMENTS ALREADY SCHEDULED WITH A [place] PROVIDER: Future Appointments Date Time Provider Department Center 01/06/2024 1:15 PM [facility] 01/06/2024 2:00 PM [facility] Allergen Reactions Tramadol Mental Status Change DISCHARGE MEDICATION: Medication List START maryjane (more content not included)...[facility] 84-49-6798QAKAMEB PROGHNO ID: [id number] Author: ROJAS CLINE RN Service: Nursing Author Type: Registered Nurse Type: Nursing Progress Note Filed: 12/26/2023 18:03 Note Text: Patient given discharge paperwork. All question and concerns addressed. Patient transport home [facility]XR SINUS 3V PA/DAN/LATon 71-70-4788HI SINUS 3V PA/DAN/LAT* * *Final Report* * [...] 8:21AM EST [id number] HospitalBasic metabolic 2000 panelon 00-09-0607Kernb gap [Moles/Vol]12 mmol/LNormal8-15[facility]st HospitalComment on above:Order Comment: Specimen Type: BLOOD SPECIMEN Order[facility] Facility: [facility] Address: [address] [place] [address]Ekenpogjh By: #### MPO #### [facility] CLIA [id number] [address] [place] [address]Moeakqf [Mass/Vol]9.0 mg/dLNormal8.5-10.2[facility]crest HospitalComment on above:Order Comment: Specimen Type: BLOOD SPECIMEN Ordering Facility: [facility] Address: [address] [place] [address] 28694Dzsqnmakx By: #### MPO #### [facility] CLIA [id number] [address] [place] [address] 07900Padmkcly [Moles/Vol]95 mmol/XCyz24-898Ukuhawjfz HospitalComment on above:Order Comment: Specimen Type: BLOOD SPECIMEN Ordering Facility: [facility] Address: [address] [place] [address] 47555Snyqrykmm By: #### MPO #### [facility] CLIA [id number] [address] [place] [address] 73321VH0 [Moles/Vol]27 mmol/THyxomp85-55Iaodvejjr HospitalComment on above:Order Comment: Specimen Type: BLOOD SPECIMEN Ordering Facility: [facility] Address: [address] [place] [address] 31452Axmmlwkzi By: #### MPO #### [facility] CLIA [id number] [address] [place] [address] 81047Sdlczmckex [Mass/Vol]1.07 mg/dLNormal0.73-1.22 [facility] HospitalComcaro center on above:Order Comment: Specimen Type: BLOOD SPECIMEN Ordering Facility: [facility] Address: [address] [place], [place] [address]Performed By: #### MPO #### [facility] CLIA [id number] [address] [place] [address] 111[address]Ydnjbllrwn and Glomerular filtration rate.predicted panel (S/P/Bld)74 mL/min/1.73m???Normal>=60[facility] HospitalComcaro center on above: Order Comment: Specimen Type: BLOOD SPECIMEN Ordering Facility: [facility] Address: [address] [place], [place] [address]Result Comment: Estimated Glomerular Filtration Rate (eGFR) is [...] reflect actual GFR.Performed By: #### MPO #### [facility] CLIA [id number] [address] [place] [address] 79895Gwklrmo [Mass/Vol]108 mg/oDSnqg70-40Stowkvjmu HospitalComcaro center on above:Order Comment: Specimen Type: BLOOD SPECIMEN Ordering Facility: [facility] Address: [address] [place], [place] [address]Result Comment: The [place] Diabetes Association (ADA) provides guidance for cutoff [...] Standards of Medical Care in Diabetes 2016, [place] [employer]. Diabetes Care. 2016.39(Suppl 1).Performed By: #### MPO #### [facility] CLIA [id number] [address] [place] [address] 75475Vjxwsckhv [Moles/Vol]3.7 mmol/LNormal3.7-5.1 Leary HospitalComment on above:Order Comment: Specimen Type: BLOOD SPECIMEN Ordering Facility: [facility] Address: [address] [place], [place] [address]Performed By: #### MPO #### [facility] CLIA [id number] [address] [place] [address] 83245Grhkyq [Moles/Vol]134 mmol/PFsb417-105Aativhkhh HospitalComment on above:Order Comment: Specimen Type: BLOOD SPECIMEN Ordering Facility: [facility] Address: [address] [place], [place] [address]Performed By: #### MPO #### [facility] CLIA [id number] [address] [place] [address] 44529Fpwt nitrogen [Mass/Vol]24 mg/dLNormal9-24[facility] HospitalComment on above:Order Comment: Specimen Type: BLOOD SPECIMEN Ordering Facility: [facility] Address: [address] [place], [place] [address]Performed By: #### MPO #### [facility] CLIA [id number] [address] [place] [address] 469[address]KXRLVSEak [id number] ID: [id number] Author: YEHUDA DIAL MD Service: Rheumatology Author [...] underlying condition. The subject is admitted to [facility] for anasarca. In the past few [...] for seasonal allergi (more content not included)...Normal [facility] SerPl-mCncon 29-18-6016EJV [Mass/Vol]1.1 mg/dLHigh<0.9 [facility] HospitalComment on above:Order Comment: Specimen Type: BLOOD SPECIMEN Ordering Facility: [facility] Address: [address] [place], [place] [address]Performed By: #### MPO #### [facility] CLIA [id number] [address] [place], [place] [address]ESR Westergren method (Bld) [Velocity]on 12-25-2023 ESR (Bld) [Velocity]28 mm/hHigh0-15[facility] HospitalComment on above:Order Comment: Specimen Type: BLOOD SPECIMEN Order[facility] Facility: [facility] Address: [address] [place], [place] [address]Performed By: #### 73234-6 #### [facility] CLIA [id number] [address] [place] [address] STATES GLEN COVE HOSPITALIMMUNOFIXATION SCREEN, SERUM on 04-01-7685OPL RESULTNo M protein is identified.NormalNo M protein is identified.[facility] HospitalComcaro center on above:Order Comment: Specimen Type: BLOOD SPECIMENOrdering Facility: [facility] Address:[address] [place], [place] [address]Performed By: #### IFESC ####[facility] LABCLIA [id number] [place] [address] [place] AMERICASTAFF REVIEW (MPA)Reviewed by Dr. Trini Parkinson [facility] HospitalComcaro center on above:Order Comment: Specimen Type: BLOOD SPECIMENOrdering Facility: [facility] Address:[address] [place], [place] [address]Performed By: #### IFESC ####[facility] LABCLIA [id number] [facility] [place] [address] [place] AMERICAMYELOPEROXIDASEon 09-43-6478ZIDTFYULBKJSZTE277 pmol/LNormal<470[facility] HospitalComment on above:Order Comment: Specimen Type: BLOOD SPECIMEN Ordering Facility: [facility] Address: [address] [place], [place] [address]Result Comment: Based on a high risk sub-population [...] analytical performance characteristics have been determined by [facility]. It has not been cleared or approved by the U.S. Food and Drug Administration. This assay has been validated pursuant to the CLIA regulations and is used for clinical purposes. Received Date: [id number] By: #### MPO #### [facility] CLIA [id number] [address] [facility] [address], [place] [address]UZ CARDIAC AMYLOID SPECT/CTon 65-26-9574MC CARDIAC AMYLOID SPECT/CT* * *Final Report* * * DATE OF EXAM: Dec 25 2023 3:56PM [facility] 0847 - NM CARDIAC AMYLOID SPECT/CT / PROCEDURE REASON: Cardiac amyloidosis suspected, further testing * * * * Physician Interpretation * * * * RESULT: NM CTAC Report: [facility] Date of service: 12/25/2023 3:18:39 PM [...] pathologic assessment as appropriate. Nuclear Med Report: [id number] PLANAR and SPECT: Myocardial imaging of the chest with CT attenuation correction was performed at 3 hours post IV injection of Tc-99m Pyrophosphate. See administered doses below. [facility] Date of service: 12/25/2023 3:18:39 PM [...] EST [id number] HospitalPROTEIN ELECTROPHORESIS SERUM (P) on 13-63-0508Mqrpepc [Mass/Vol]3.52 g/dLNormal3.43-5.41[facility] HospitalComment on above:Order Comment: Specimen Type: BLOOD SPECIMEN Order[facility] Facility[facility] Address: [address] [place], [place] [address]Performed By: #### [id number] #### [facility] CLIA [id number] [address] [place] [address] OF THE CHRIST HOSPITALAlpha 1 globulin Elph [Mass/Vol]0.34 g/dLNormal0.18-0.43[facility] HospitalComment on above:Order Comment: Specimen Type: BLOOD SPECIMEN Ordering Facility[facility] Address: [address] [place], [place] [address]Performed By: #### [id number] #### [facility] CLIA [id number] [address] [place] [address] OF AMERICAAlpha 2 globulin Elph [Mass/Vol]0.86 g/dLNormal0.42-0.98[facility] HospitalComment on above:Order Comment: Specimen Type: BLOOD SPECIMEN Order[facility] Facility[facility] Address: [address] [place], [place] [address]Performed By: #### [id number] #### [facility] CLIA [id number] [address] [place] [address] [place] AMERICABeta globulin Elph [Mass/Vol]0.91 g/dLNormal0.61-1.17[facility] HospitalComment on above:Order Comment: Specimen Type: BLOOD SPECIMEN Order[facility] Facility: [facility] Address: [address] [place], [place] [address]Performed By: #### [id number] #### [facility] CLIA [id number] [address] [place] [address] [place] AMERICAGamma globulin Elph [Mass/Vol]0.66 g/dLNormal0.53-1.51[facility] HospitalComment on above:Order Comment: Specimen Type: BLOOD SPECIMEN Ordering Facility: [facility] Address: [address] [place], [place] [address]Performed By: #### [id number] #### [facility] CLIA [id number] [address] [place] [address] [place] AMERICAM-PROTEIN LOCATIONNormal [facility] HospitalComment on above:Order Comment: Specimen Type: BLOOD SPECIMEN Ordering Facility: [facility] Address: [address] [place], [place] [address]Result Comment: Not Applicable. Performed By: #### [id number] #### [facility] CLIA [id number] [address] [place] [address] [place] AMERICAProtein Fractions [Interp]No definitive M protein is identified on protein electrophoresis.NormalNo definitive M protein is identified on protein electrophoresis.[facility] Comment on above:Order Comment: Specimen Type: BLOOD SPECIMEN Order[facility] Facility: [facility] Address: [address] [place], [place] [address]Performed By: #### [id number] #### [facility] CLIA [id number] [address] [place] [address] [place] AMERICAProtein.monoclonal Elph [Mass/Vol]0.00 g/dLNormal<=0.00[facility] HospitalComment on above:Order Comment: Specimen Type: BLOOD SPECIMEN Ordering Facility: [facility] Address: [address] [place], [place] [address]Performed By: #### [id number] #### [facility] CLIA [id number] [address] [place] [address] STAFF REVIEWReviewed by Dr. Trini Farley LANormKettering Health Troyllcre HospitalComment on above:Order Comment: Specimen Type: BLOOD SPECIMEN [facility]ing Facility: [facility] Address: [address] [place], [place] [address]Performed By: #### [id number] #### [facility] CLIA [id number] [address] [place] [address] [place] AMERICAProt SerPl-mCncon 12-25-2023 Protein [Mass/Vol]6.3 g/dLNormal6.3-8.0Hillcrest HospitalComment on above:Order Comment: Specimen Type: BLOOD SPECIMEN Ordering Facility: [facility] Address: [address] [place], [place] [address]Performed By: #### 1987-, 02352-5 #### [facility] CLIA [id number] [address] [place], [place] [address] [place] [facility] SerPl-aCncon 12-25-2023 TSH Qn2.300 m[IU]/LNormal0.270-4.200Hillcrest HospitalComment on above:Order Comment: Specimen Type: BLOOD SPECIMEN Ordering Facility: [facility] Address: [address] [place], [place] [address]Performed By: #### 1987-, 76377-5 #### [facility] CLIA [id number] [address] [place], [place] [address] [place] OF AMERICABasic metabolic 2000 panelon 31-56-8254Yqhtm gap [Moles/Vol]12 mmol/LNormal8-15Hillcrest HospitalComment on above:Order Comment: Specimen Type: BLOOD SPECIMEN Ordering Facility: [facility] Address: [address] [place], [place] [address]Performed By: #### MPO #### [facility] CLIA [id number] [address] [place] [address] 63881Edjpefs [Mass/Vol]9.5 mg/dLNormal8.5-10.2Hillcrest HospitalComment on above:Order Comment: Specimen Type: BLOOD SPECIMEN Ordering Facility: [facility] Address: [address] [place], [place] [address]Performed By: #### MPO #### [facility] CLIA [id number] [address] [place] [address] 81813Lrqociwj [Moles/Vol]94 mmol/ZGhc75-691Xinehtmbe HospitalComment on above:Order Comment: Specimen Type: BLOOD SPECIMEN Ordering Facility: [facility] Address: [address] [place], [place] [address]Performed By: #### MPO #### [facility] CLIA [id number] [address] [place] [address] 75177BL5 [Moles/Vol]28 mmol/POftdzp33-34Rcvnbzljl HospitalComment on above:Order Comment: Specimen Type: BLOOD SPECIMEN Ordering Facility: [facility] Address: [address] [place], [place] [address]Performed By: #### MPO #### [facility] CLIA [id number] [address] [place] [address] 42631Gpfihvxtbq [Mass/Vol]1.27 mg/dLHigh0.73-1.22 Leary HospitalComment on above:Order Comment: Specimen Type: BLOOD SPECIMEN Ordering Facility: [facility] Address: [address] [place], [place] [address]Performed By: #### MPO #### [facility] CLIA [id number] [address] [place] [address] 28663Qegisxivpt and Glomerular filtration rate.predicted panel (S/P/Bld)60 mL/min/1.73m???Normal>=60Hillcrest HospitalComment on above: Order Comment: Specimen Type: BLOOD SPECIMEN Ordering Facility: [facility] Address: [address] [place], [place] [address]Hnubxb Comment: Estimated Glomerular Filtration Rate (eGFR) is [...] reflect actual GFR.Performed By: #### MPO #### [facility] CLIA [id number] [address] [place] [address] 42712Lqvoemm [Mass/Vol]134 mg/nQCasu47-06Suqrqnmmm HospitalComment on above:Order Comment: Specimen Type: BLOOD SPECIMEN Ordering Facility: [facility] Address: [address] [place] [address]Llavdg Comment: The [place] Diabetes Association (ADA) provides guidance for cutoff [...] Standards of Medical Care in Diabetes 2016, [place] [employer]. Diabetes Care. 2016.39(Suppl 1).Performed By: #### MPO #### [facility] CLIA [id number] [address] [place] [address] 55477Niszgebpb [Moles/Vol]3.6 mmol/LLow3.7-5.1[facility] HospitalComment on above:Order Comment: Specimen Type: BLOOD SPECIMEN Ordering Facility: [facility] Address: [address] [place] [address] 801[address]Pmldojfht By: #### MPO #### [facility] CLIA [id number] [address] [place] [address] 40263Izeqmn [Moles/Vol]134 mmol/BEbe171-904Bgfydryrz HospitalComment on above:Order Comment: Specimen Type: BLOOD SPECIMEN Ordering Facility: [facility] Address: [address] [place], [place] [address]Performed By: #### MPO #### [facility] CLIA [id number] [address] [place], [place] [address]Urea nitrogen [Mass/Vol]25 mg/dLHigh9-24Hillcrest HospitalComment on above:Order Comment: Specimen Type: BLOOD SPECIMEN Ordering Facility: [facility] Address: [address] [place], [place] [address]Performed By: #### MPO #### [facility] CLIA [id number] [address] [place], [place] [address]Anion gap [Moles/Vol]14 mmol/LNormal8-15[facility]crest HospitalComment on above:Order Comment: Specimen Type: BLOOD SPECIMEN Ordering Facility: [facility] Address: [address] [place], [place] [address]Performed By: #### #### [facility] CLIA [id number] [address] [place] [address] [place] OF AMERICACalcium [Mass/Vol]9.4 mg/dL Normal8.5-10.2[facility]st HospitalComment on above:Order Comment: Specimen Type: BLOOD SPECIMEN Ordering Facility: [facility] Address: [address] [place], [place] [address]Performed By: #### #### [facility] CLIA [id number] [address] [place] [address] [place] OF AMERICAChloride [Moles/Vol]95 mmol/L Joj28-440Zghdscfgt HospitalComment on above:Order Comment: Specimen Type: BLOOD SPECIMEN Ordering Facility: [facility] Address: [address] [place], [place] [address]Performed By: #### #### [facility] CLIA [id number] [address] [place] [address] [place] OF AMERICACO2 [Moles/Vol]27 mmol/L Bkamsy61-28Jqcqednqt HospitalComment on above:Order Comment: Specimen Type: BLOOD SPECIMEN Ordering Facility: [facility] Address: [address] [place], [place] [address]Performed By: #### 1986-10, #### [facility] CLIA [id number] [address] [place] [address] [place] OF AMERICACreatinine [Mass/Vol]1.34 mg/dLHigh0.73-1.22Hillcre HospitalComment on above:Order Comment: Specimen Type: BLOOD SPECIMEN Ordering Facility: [facility] Address: [address] [place], [place] [address]Performed By: #### 1986-10, #### [facility] CLIA [id number] [address] [place] [address] [place] OF AMERICACreatinine and Glomerular filtration rate.predicted panel (S/P/Bld)56 mL/min/1.73m???Low>=60Hillcre HospitalComment on above:Order Comment: Specimen Type: BLOOD SPECIMEN Ordering Facility: [facility] Address: [address] [place], [place] [address]Result Comment: Estimated Glomerular Filtration Rate (eGFR) is [...] reflect actual GFR.Performed By: #### 1986-10, #### [facility] CLIA [id number] [address] [place] [address] [place] OF AMERICAGlucose [Mass/Vol]100 mg/dL Ycgp21-53Villnsajb HospitalComment on above:Order Comment: Specimen Type: BLOOD SPECIMEN [facility]ing Facility: [facility] Address: [address] [id number] Comment: The [place] [employer] Association (ADA) provides guidance for cutoff [...] Standards of Medical Care in Diabetes 2016, [place] [employer]. Diabetes Care. 2016.39(Suppl 1).Performed By: #### #### [facility] CLIA [id number] [address] [place] [address] [place] OF AMERICAPotassium [Moles/Vol]3.6 mmol/LLow3.7-5.1[facility]st HospitalComment on above:Order Comment: Specimen Type: BLOOD SPECIMEN Ordering Facility: [facility] Address: [address] [place], [place] [address]Performed By: #### #### [facility] CLIA [id number] [address] [place] [address] [place] AMERICASodium [Moles/Vol]136 mmol/L Dzrhcu897-591Hrogwovsm HospitalComment on above:Order Comment: Specimen Type: BLOOD SPECIMEN Ordering Facility: [facility] Address: [address] [place], [place] [address]Performed By: #### #### [facility] CLIA [id number] [address] [place] [address] [place] OF AMERICAUrea nitrogen [Mass/Vol]26 mg/dLHigh9-24Hillcre HospitalComment on above:Order Comment: Specimen Type: BLOOD SPECIMEN Ordering Facility: [facility] Address: [address] [place], [place] [address]Performed By: #### #### [facility] CLIA [id number] [address] [id number] [place] OF AMERICAMagnesium SerPl-mCncon 96-59-1536Nhowwnpne [Mass/Vol]2.2 mg/dLNormal1.7-2.3[facility]st HospitalComment on above:Order Comment: Specimen Type: BLOOD SPECIMEN Ordering Facility: [facility] Address: [facility] [place] [address]Performed By: #### 1986-10, #### [facility] CLIA [id number] [address] 12-24[facility]2023 [facility]: [id number] Author: SONIYA JO, EVAN Service: ? Author Type: Registered Nurse Type: Nursing Progress Note Filed: 12/24/2023 22:50 Note Text: 1910- Assumed care of pt from outgoing RN, pt seen lying in bed A/O X 3, on RA, no pain or discomfort reported. Safety measures in place and call light within reach. Will continue to monitor.[facility] ID: [id number] Author: ELIZABETH ROWAN RN Service: Nursing Author Type: Registered Nurse Type: Nursing Progress Note Filed: 12/24/2023 10:54 Note Text: Spoke with Dr Pimentel regarding orders for LR bolus 500ml, and PO lasix 80mg. Instructed to given bolus first, then Lasix an hour after.[facility] ID: [id number] Author: DWIGHT GLYNN RN Service: Nursing Author Type: Registered Nurse Type: Nursing Progress Note Filed: 12/24/2023 07:56 Note Text: 0200: Spoke with shift stacker ADRIENNE regarding patient BP of 86/59. Pt is asymptomatic and ADRIENNE is not worried about the blood pressure at this time. I was advised to page again if BP goes below 80 or if patient becomes symptomatic. NormalLeary HospitalUrate SerPl-mCncon 65-96-4469Xchdo [Mass/Vol]7.6 mg/dL Normal4.0-8.1[facility] HospitalComment on above:Order Comment: Specimen Type: BLOOD SPECIMEN Order[facility] Facility[facility] Address: [address] [place], [place] [address]Performed By: #### MPO #### [facility] CLIA [id number] [address] [id number] CHEST 2V FRONTAL/LATon 02-10-4840OS CHEST 2V FRONTAL/LAT* * *Final Report* * [...] MD on Dec 25 2023 7:53AM EST [id number] HospitalBasic metabolic 2000 panelon 00-96-9554Usqnn gap [Moles/Vol]17 mmol/LHigh8-15[facility] HospitalComment on above:Order Comment: Specimen Type: BLOOD SPECIMENOrdering Facility: [facility] Address:[address] [place] [address]Performed By: #### 11426-9, 11658-8 ####[facility] [id number] [place] [address] [place] AMERICACalcium [Mass/Vol]9.5 mg/dLNormal8.5-10.2[facility] HospitalComment on above:Order Comment: Specimen Type: BLOOD SPECIMENOrdering Facility: [facility] Address:[address] [place], [place] [address]Performed By: #### 81981-4, 25083-0 ####[facility] [id number] [place] [address] [place] AMERICAChloride [Moles/Vol]97 mmol/TKyj54-799Gwarqbhxc HospitalComment on above:Order Comment: Specimen Type: BLOOD SPECIMENOrdering Facility: [facility] Address:[address] [place] [address] Performed By: #### 19522-5, 35620-2 ####[facility] [id number] [place] [address] [place] AMERICACO2 [Moles/Vol] 27 mmol/DFrbsom74-86Rpinultph HospitalComment on above:Order Comment: Specimen Type: BLOOD SPECIMENOrdering Facility: [facility] Address:[address] [place], [place] [address]Performed By: #### 06665-8, 59990-6 ####[facility] [id number] [place] [address] [place] AMERICACreatinine [Mass/Vol]1.14 mg/dLNormal0.73-1.22[facility] HospitalComment on above:Order Comment: Specimen Type: BLOOD SPECIMENOrdering Facility: [facility] Address:[address] [place], [place] [address]Performed By: #### 28205-6, 03711-9 ####[facility] [id number] [place] [address] [place] Creatinine and Glomerular filtration rate.predicted panel (S/P/Bld)68 mL/min/1.73m???Normal>=60[facility] HospitalComment on above:Order Comment: Specimen Type: BLOOD SPECIMENOrdering Facility: [facility] Address:[address] [place], [place] [address]Vbxsbj Comment: Estimated Glomerular Filtration Rate (eGFR) is calculated using the 2020 CKD-EPI creatinine equation. This equation utilizes serum creatinine, sex, and age as parameters. The creatinine assay has traceable calibration to isotope dilution-mass spectrometry. Refer to KDIGO guidelines for clinical interpretation. In patients with unstable renal function, e.g. those with acute kidney injury, the eGFR may not accurately reflect actual GFR.Performed By: #### 59704-0, 45569-3 ####[facility] [id number] [place] [address] [place] AMERICAGlucose [Mass/Vol]113 mg/kGZmgk27-30KagjgqgknHaverhill Pavilion Behavioral Health Hospitalment on above:Order Comment: Specimen Type: BLOOD SPECIMENOrdering Facility: [facility] Address:[address] [place], [place] [address]Result Comment: The [place] Diabetes Association (ADA) provides guidance for cutoff [...] Standards of Medical Care in Diabetes 2016, [place] [employer]. Diabetes Care. 2016.39(Suppl 1).Performed By: #### 47204-1, 10636-5 ####[facility] [id number] [place] [address] [place] AMERICAPotassium [Moles/Vol]3.8 mmol/LNormal3.7-5.1 [facility] on above:Order Comment: Specimen Type: BLOOD SPECIMENOrdering Facility: [facility] Address:[address] [place], [place] [address]Performed By: #### 65042-8, 02943-4 ####[facility] [id number] [place] [address] [place] AMERICASodium [Moles/Vol]141 mmol/OUuolfk106-323Fvujpoour Hospital Comment on above:Order Comment: Specimen Type: BLOOD SPECIMENOrdering Facility: [facility] Address:[address] [place] [address] Performed By: #### 94606-8, 32371-4 ####[facility] [id number] [place] [address] [place] AMERICAUrea nitrogen [Mass/Vol]15 mg/dLNormal9-24[facility] HospitalComment on above:Order Comment: Specimen Type: BLOOD SPECIMENOrdering Facility: [facility] Address:[address] [place], [place] [address]Performed By: #### 31582-4, 28550-8 ####[facility] [id number] [place] [address] [place] AMERICAMagnesium SerPl-mCncon 22-89-7622Zchnqpubx [Mass/Vol]1.9 mg/dLNormal1.7-2.3[facility] HospitalComment on above:Order Comment: Specimen Type: BLOOD SPECIMENOrdering Facility: [facility] Address:[address] [place], [place] [address]Performed By: #### 47575- 9, 66427-1 ####[facility] [id number] [place] [address] [place] OF AMERICABasic metabolic 2000 panelon 55-63-4937Qnyer gap [Moles/Vol]16 mmol/LHigh8-15[facility] HospitalComment on above:Order Comment: Specimen Type: BLOOD SPECIMEN [facility] Address: [address] [place], [place] [address]Performed By: #### MPO #### [facility] CLIA [id number] [address] [place], [place] [address]Calcium [Mass/Vol]9.0 mg/dLNormal8.5-10.2[facility]st HospitalComment on above:Order Comment: Specimen Type: BLOOD SPECIMEN [facility] Address: [address] [place], [place] [address]Performed By: #### MPO #### [facility] CLIA [id number] [address] [place] [address] 43055Jdlyjucf [Moles/Vol]99 mmol/WOzieqf42-717Pnbzuloij HospitalComment on above:Order Comment: Specimen Type: BLOOD SPECIMEN [facility] Facility[facility] Address: [address] [place], [place] [address]Performed By: #### MPO #### [facility] CLIA [id number] [address] [place] [address] 43575YS0 [Moles/Vol]24 mmol/PLuanun35-49Aejieaxqn HospitalComment on above:Order Comment: Specimen Type: BLOOD SPECIMEN [facility] Address: [address] [place], [place] [address]Performed By: #### MPO #### [facility] CLIA [id number] [address] [place] [address] 12802Anbjgtvykh [Mass/Vol]0.98 mg/dLNormal0.73-1.22 Leary HospitalComment on above:Order Comment: Specimen Type: BLOOD SPECIMEN [facility] Facility[facility] Address: [address] [place], [place] [address]Performed By: #### MPO #### [facility] CLIA [id number] [address] [place] [address] 516[address]Kenbachpfa and Glomerular filtration rate.predicted panel (S/P/Bld)82 mL/min/1.73m???Normal>=60[facility] HospitalComment on above: Order Comment: Specimen Type: BLOOD SPECIMEN [facility] Address: [address] [place], [place] [address]Result Comment: Estimated Glomerular Filtration Rate (eGFR) is [...] reflect actual GFR.Performed By: #### MPO #### [facility] CLIA [id number] [address] [place] [address] 09854Fqxthdd [Mass/Vol]109 mg/rDBunx41-87Njdghezyr HospitalComment on above:Order Comment: Specimen Type: BLOOD SPECIMEN Order[facility] Address: [address] [place], [place] [address]Result Comment: The [place] Diabetes Association (ADA) provides guidance for cutoff [...] Standards of Medical Care in Diabetes 2016, [place] [employer]. Diabetes Care. 2016.39(Suppl 1).Performed By: #### MPO #### [facility]CardSh[facility] CLIA [id number] [address] [place] [address] 35608Xmknthwnx [Moles/Vol]3.3 mmol/LLow3.7-5.1Hillcre HospitalComment on above:Order Comment: Specimen Type: BLOOD SPECIMEN [facility] Address: [address] [place], [place] [address]Rhoxyldiy By: #### MPO #### [facility] CLIA [id number] [address] [place] [address] 51582Udzzcn [Moles/Vol]139 mmol/DNmauyb935-547Tzaiwwxut HospitalComment on above:Order Comment: Specimen Type: BLOOD SPECIMEN [facility] Address: [address] [id number] By: #### MPO #### [facility] CLIA [id number] [address] [place] [address] 22518Fcuz nitrogen [Mass/Vol]12 mg/dLNormal9-24[facility] HospitalComment on above:Order Comment: Specimen Type: BLOOD SPECIMEN [facility] Address: [address] [place], [place] [address]Performed By: #### MPO #### [facility] CLIA [id number] [address] [place] [address] 429[address]LST panel Auto (Bld)on 61-13-3856Sstykdgyeso distribution width (RBC) [Ratio]15.3 %High11.5-15.0Leary HospitalComment on above:Order Comment: Specimen Type: BLOOD SPECIMEN [facility] Address: [address] [place], [place] [address]Performed By: #### MPO #### [facility] CLIA [id number] [address] [place] [address] 62346Aitgyhblth (Bld) [Volume fraction]39.3 %Normal 39.0-51.0Leary HospitalComment on above:Order Comment: Specimen Type: BLOOD SPECIMEN [facility] Address: [address] [place], [place] [address]Performed By: #### MPO #### [facility] CLIA [id number] [address] [place] [address] 54868Nrbvwedgmx (Bld) [Mass/Vol]12.7 g/dLLow13.0-17.0 Leary HospitalComment on above:Order Comment: Specimen Type: BLOOD SPECIMEN [facility] Facility: [facility] Address: [address] [place], [place] [address]Performed By: #### MPO #### [facility] CLIA [id number] [address] [place] [address] 14897IMT (RBC) [Entitic mass]29.6 tiKxrbuh80.0-34.0 Leary HospitalComment on above:Order Comment: Specimen Type: BLOOD SPECIMEN [facility] Address: [address] [place], [place] [address]Performed By: #### MPO #### [facility] CLIA [id number] [address] [place] [address] 27748GVFA (RBC) [Mass/Vol]32.3 g/bKYxypzg07.5-36.0 Leary HospitalComment on above:Order Comment: Specimen Type: BLOOD SPECIMEN [facility] Address: [address] [id number] By: #### MPO #### [facility] CLIA [id number] [address] [place] [address] 08039JNG (RBC) [Entitic vol]91.6 kBFiifrc23.0-100.0 Leary HospitalComment on above:Order Comment: Specimen Type: BLOOD SPECIMEN [facility] Address: [address] [place], [place] [address]Performed By: #### MPO #### [facility] CLIA [id number] [address] [place] [address] 22370Dpezoxfxx RBC (Bld) [#/Vol]10*3/uLNormal<0.01 Leary HospitalComment on above:Order Comment: Specimen Type: BLOOD SPECIMEN [facility] Address: [facility] [place], [place] [address]Performed By: #### MPO #### [facility] CLIA [id number] [address] [place] [address] 01152Hfqxyjjw mean volume (Bld) [Entitic vol]10.2 fL Normal9.0-12.7[facility] HospitalComment on above:Order Comment: Specimen Type: BLOOD SPECIMEN [facility] Address: [address] [place], [place] [address]Performed By: #### MPO #### [facility] CLIA [id number] [address] [place] [address] 84975Udnndalpn (Bld) [#/Vol]250 10*3/rZLbfuwk715-275 Leary HospitalComment on above:Order Comment: Specimen Type: BLOOD SPECIMEN [facility] Address: [address] [place] [address] 274[address]Kentvqanj By: #### MPO #### [facility] CLIA [id number] [address] [place] [address] 71127SII (Bld) [#/Vol]4.29 10*6/uLNormal4.20-6.00 [facility] HospitalComment on above:Order Comment: Specimen Type: BLOOD SPECIMEN [facility] Address: [address] [place] [address] 459[address]Ycdupynxp By: #### MPO #### [facility] CLIA [id number] [address] [place] [address] 64385PAQ (Bld) [#/Vol]5.83 10*3/uLNormal3.70-11.00 [facility] HospitalComment on above:Order Comment: Specimen Type: BLOOD SPECIMEN [facility] Address: [address] [place] [address] 529[address]Lqgcrwnst By: #### MPO #### [facility] CLIA [id number] [address] [place] [address] 95140JFWMOGX PROGon 35-75-3181LYYHCDJ PRONO ID: [id number] Author: TITA LANDRY APRN.TRUCK BODY BUILDER Service: Thoracic Surgery Author Type: Nurse Practitioner Type: Consult Progress Note Filed: 12/22/2023 12:57 Note Text: [facility] THORACIC SURGERY CONSULT PROGRESS NOTE Sav Raymundo [id number] PRIMARY SERVICE: Internal Medicine HOSPITAL DAY: # [...] service, s/p R VATS pleural biopsy, 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 Remigio Landry, LETICIA.TRUCK BODY BUILDER Pager [phone] 12/22/2023 12:17 PMNormalHillcrest HospitalMagnesium SerPl-mCncon 71-11-5048Wohsxaxxy [Mass/Vol]1.6 mg/dLLow1.7-2.3[facility]st HospitalComment on above:Order Comment: Specimen Type: BLOOD SPECIMEN [facility] Address: [address] [place], [place] [address]Performed By: #### MPO #### [facility] CLIA [id number] [address] [place] [address] [id number] ABDOMEN 1V SUPINEon [id number] ABDOMEN 1V SUPINE* * *Final Report* * [...] MD on Dec 23 2023 12:20AM EST [id number] [facility]25([place])D3 SerPl-mCncon 12-21-2023 25-hydroxyvitamin D3 [Mass/Vol]37.2 ng/gDKqucbe73.0-80.0[facility] Comment on above:Order Comment: Specimen Type: BLOOD SPECIMEN Ordering Facility: [facility] Address: [address] [place], [place] [address]Performed By: #### [id number] #### [facility] CLIA [id number] [address] [place], [place] [address]K [address] 12-21-2023 [facility] HEALTHHNO ID: [id number] Author: ISABEL STRINGER RT(Sandee) Service: Radiology Author Type: Fireworks Inspector Type: Allied Health Filed: 12/21/2023 18:11 Note [...] PATIENT PRESENTS WITH AN IMPLANTABLE OR ATTACHED TALENT SCOUT: No RADIOLOGY DEPARTMENT: Ultrasound PERIPHERAL IV DATA: Not applicable SIGNED BY: IMAN Nevarez) December 21, 2023 6:11 [facility] panel Auto (Bld)on 12-21-2023 Erythrocyte distribution width (RBC) [Ratio]15.3 %High11.5-15.0[facility] HospitalComment on above:Order Comment: Specimen Type: BLOOD SPECIMEN Ordering Facility: [facility] Address: [address] [place], [place] [address]Performed By: #### 82702-1 #### [facility] CLIA [id number] [address] [place], [place] [address]Hematocrit (Bld) [Volume fraction]36.3 %Low39.0-51.0[facility] HospitalComment on above:Order Comment: Specimen Type: BLOOD SPECIMEN Ordering Facility: [facility] Address: [address] [place], [place] [address]Performed By: #### 44367-6 #### [facility] CLIA [id number] [address] [place], [place] [address]Hemoglobin (Bld) [Mass/Vol] 11.8 g/dLLow13.0-17.0[facility] HospitalComment on above:Order Comment: Specimen Type: BLOOD SPECIMEN Ordering Facility: [facility] Address: [address] [place], [place] [address]Performed By: #### 17746-3 #### [facility] CLIA [id number] [address] [place], [place] [address]MCH (RBC) [Entitic mass]29.8 dhOcnuwb48.0-34.0[facility] HospitalComment on above:Order Comment: Specimen Type: BLOOD SPECIMEN Ordering Facility: [facility] Address: [address] [place], [place] [address]Performed By: #### 55314-7 #### [facility] CLIA [id number] [address] [place], [place] [address]HC (RBC) [Mass/Vol]32.5 g/jNXautxj73.5-36.0[facility] HospitalComment on above:Order Comment: Specimen Type: BLOOD SPECIMEN Ordering Facility: [facility] Address: [address] [place], [place] [address]Performed By: #### 05713-7 #### [facility] CLIA [id number] [address] [place] [address] [place] AMERICAMCV (RBC) [Entitic vol]91.7 dLTadkrd20.0-100.0[facility]st HospitalComment on above:Order Comment: Specimen Type: BLOOD SPECIMEN Ordering Facility: [facility] Address: [address] [place], [place] [address]Performed By: #### 69655-5 #### [facility] CLIA [id number] [address] [place] [address] [place] AMERICANucleated RBC (Bld) [#/Vol] 10*3/uLNormal<0.01[facility] HospitalComment on above:Order Comment: Specimen Type: BLOOD SPECIMEN Ordering Facility: [facility] Address: [address] [place], [place] [address]Performed By: #### 35607-2 #### [facility] CLIA [id number] [address] [place] [address] [place] AMERICAPlatelet mean volume (Bld) [Entitic vol]10.0 fLNormal9.0-12.7[facility]st HospitalComment on above:Order Comment: Specimen Type: BLOOD SPECIMEN Ordering Facility: [facility] Address: [address] [place], [place] [address]Performed By: #### 59488-0 #### [facility] CLIA [id number] [address] [place] [address] [place] AMERICAPlatelets (Bld) [#/Vol]215 10*3/sNCogwsf407-209Ffuecizlc HospitalComment on above:Order Comment: Specimen Type: BLOOD SPECIMEN Ordering Facility: [facility] Address: [address] [place], [place] [address]Performed By: #### 31619-6 #### [facility] CLIA [id number] [address] [place], [place] [address]RB (Bld) [#/Vol]3.96 10*6/uLLow4.20-6.00[facility] HospitalComment on above:Order Comment: Specimen Type: BLOOD SPECIMEN Ordering Facility: [facility] Address: [address] [place], [place] [address]Performed By: #### 91240-1 #### [facility] CLIA [id number] [address] [place] [address] (Bld) [#/Vol]6.12 10*3/uLNormal3.70-11.00[facility] HospitalComment on above:Order Comment: Specimen Type: BLOOD SPECIMEN Ordering Facility: [facility] Address: [address] [place], [place] [address]Performed By: #### 77620-4 #### [facility] IA [id number] [address] [place], [place] [address]CONSULTon [id number] HNO ID: [id number] Author: RONALDO FLOOD MD, PhD Service: Thoracic Surgery Author Type: Physician Type: Consults Filed: 12/22/2023 10:17 Note Text: [facility] CONSULT NOTE Sav Raymundo [id number] Requesting Provider: Alpa Olvia CNP Cardiothoracic Physician: Ronaldo Flood MD Admit Date: 12/20/2023 LOS : 1 Chief Complaint: Recurrent Effusion HPI: Sav Raymundo is a 73 y/o male referred by Alpa Oliva CNP for an opinion regarding management of recurrent right pleural effusion. 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, right Pleurx catheter insertion [...] reviewed: No additional systems (more content not included)...Normal[facility]cre[facility] SerPl-ncon 84-64-9744PPP [Mass/Vol]1.8 mg/dLHigh<0.9Hillcre HospitalComment on above:Order Comment: Specimen Type: BLOOD SPECIMEN Ordering Facility: [facility] Address: [address] [place], [place] [address]Performed By: #### 1988 #### [facility] CLIA [id number] [address] [place] [address] [place] OF AMERICAComprehensive metabolic 2000 panelon 75-07-8880Tvsmwyn [Mass/Vol]3.4 g/dLLow3.9-4.9[facility] HospitalComment on above:Order Comment: Specimen Type: BLOOD SPECIMEN Ordering Facility: [facility] Address: [address] [place], [place] [address]Performed By: #### 1987-10, #### [facility] CLIA [id number] [address] [place] [address] [place] AMERICAALP [Catalytic activity/Vol] 100 U/WDtkhzl83-931Ydhczlryj HospitalComment on above:Order Comment: Specimen Type: BLOOD SPECIMEN Ordering Facility: [facility] Address: [address] [place], [place] [address]Performed By: #### 1987-10, #### [facility] CLIA [id number] [address] [place] [address] [place] AMERICAALT [Catalytic activity/Vol] 11 U/TBusvzg26-07Mmjzryhuf HospitalComment on above:Order Comment: Specimen Type: BLOOD SPECIMEN Ordering Facility: [facility] Address: [address] [place], [place] [address]Performed By: #### 1987-10, #### [facility] CLIA [id number] [address] [place] [address] [place] AMERICAAnion gap [Moles/Vol]13 mmol/LNormal8-15[facility]st HospitalComment on above:Order Comment: Specimen Type: BLOOD SPECIMEN Ordering Facility: [facility] Address: [address] [place], [place] [address]Performed By: #### 1987-10, #### [facility] CLIA [id number] [address] [place] [address] [place] AMERICAAST [Catalytic activity/Vol] 18 U/GJmvjvs96-22Trnjfthaf HospitalComment on above:Order Comment: Specimen Type: BLOOD SPECIMEN Ordering Facility: [facility] Address: [address] [place], [place] [address]Performed By: #### 1987-10, #### [facility] CLIA [id number] [address] [place] [address] [place] AMERICABilirubin [Mass/Vol]0.8 mg/dL Normal0.2-1.3[facility] HospitalComment on above:Order Comment: Specimen Type: BLOOD SPECIMEN Ordering Facility: [facility] Address: [address] [place], [place] [address]Performed By: #### 1987-10, #### [facility] CLIA [id number] [address] [place] [address] [place] AMERICACalcium [Mass/Vol]8.7 mg/dL Normal8.5-10.2[facility] HospitalComment on above:Order Comment: Specimen Type: BLOOD SPECIMEN Ordering Facility: [facility] Address: [address] [place], [place] [address]Performed By: #### 1987-10, #### [facility] CLIA [id number] [address] [place] [address] [place] AMERICAChloride [Moles/Vol]106 mmol/EWkaiam99-779Knymgxbno HospitalComment on above:Order Comment: Specimen Type: BLOOD SPECIMEN Ordering Facility: [facility] Address: [address] [place], [place] [address]Performed By: #### 1987-10, #### [facility] CLIA [id number] [address] [place] [address] [place] AMERICACO2 [Moles/Vol]19 mmol/LLow 22-30[facility] HospitalComment on above:Order Comment: Specimen Type: BLOOD SPECIMEN Ordering Facility: [facility] Address: [address] [place], [place] [address]Performed By: #### 1987-10, #### [facility] CLIA [id number] [address] [place] [address] [place] AMERICACreatinine [Mass/Vol]0.86 mg/dLNormal0.73-1.22[facility] HospitalComment on above:Order Comment: Specimen Type: BLOOD SPECIMEN Ordering Facility: [facility] Address: [address] [place], [place] [address]Performed By: #### 1987-10, #### [facility] CLIA [id number] [address] [place] [address] [place] AMERICACreatinine and Glomerular filtration rate.predicted panel (S/P/Bld)92 mL/min/1.73m???Normal>=60HiFederal Medical Center, DevensComment on above:Order Comment: Specimen Type: BLOOD SPECIMEN Ordering Facility: [facility] Address: [address] [place], [place] [address]Result Comment: Estimated Glomerular Filtration Rate (eGFR) is [...] reflect actual GFR.Performed By: #### 1987-10, #### [facility] CLIA [id number] [address] [place] [address] [place] AMERICAGlucose [Mass/Vol]115 mg/dL Wluy43-81Dwdkmwdpk HospitalComment on above:Order Comment: Specimen Type: BLOOD SPECIMEN Ordering Facility: [facility] Address: [address] [place], [place] [address]Result Comment: The [place] [employer] (ADA) provides guidance for cutoff [...] Standards of Medical Care in Diabetes 2016, [place] [employer]. Diabetes Care. 2016.39(Suppl 1).Performed By: #### 1987-10, #### [facility] CLIA [id number] [address] [place] [address] [place] AMERICAPotassium [Moles/Vol]3.9 mmol/LNormal3.7-5.1[facility] HospitalComment on above:Order Comment: Specimen Type: BLOOD SPECIMEN Ordering Facility: [facility] Address: [address] [place], [place] [address]Performed By: #### #### [facility] CLIA [id number] [address] [place] [address] [place] AMERICAProtein [Mass/Vol]6.4 g/dL Normal6.3-8.0[facility] HospitalComment on above:Order Comment: Specimen Type: BLOOD SPECIMEN Ordering Facility: [facility] Address: [address] [place], [place] [address]Performed By: #### #### [facility] CLIA [id number] [address] [place] [address] [place] AMERICASodium [Moles/Vol]138 mmol/L Rdhwmn715-194Xibjacpnu HospitalComment on above:Order Comment: Specimen Type: BLOOD SPECIMEN Ordering Facility: [facility] Address: [address] [place], [place] [address]Performed By: #### #### [facility] CLIA [id number] [address] [place] [address] [place] AMERICAUrea nitrogen [Mass/Vol]12 mg/dLNormal9-24[facility] HospitalComment on above:Order Comment: Specimen Type: BLOOD SPECIMEN Ordering Facility: [facility] Address: [address] [place], [place] [address]Performed By: #### #### [facility] CLIA [id number] [address] [place] [address] [place] AMERICACyclic citrullinated peptide IgG Qnon 71-25-1619UKW ANTIBODY IGG QUALITATIVENegativeNormalNegativeBeth Israel Deaconess HospitalComment on above:Order Comment: Specimen Type: BLOOD SPECIMEN Ordering Facility: [facility] Address: [address] [place], [place] [address]Performed By: #### 39859-6 #### [facility] CLIA [id number] [address] [place] [address] [place] [address] [place] AMERICAESR Westergren method (Bld) [Velocity]on 08-46-2762AHY (Bld) [Velocity]33 mm/hHigh0-15[facility] Comment on above:Order Comment: Specimen Type: BLOOD SPECIMEN Ordering Facility: [facility] Address: [address] [place], [place] [address]Performed By: #### MPO #### [facility] CLIA [id number] [address] [place] [address] [address] [id number] PHYSICALon [id number] PHYSICALHNO ID: [id number] Author: JOSE ANTONIO HOPPER MD Service: Family [...] not included)...NormalHillcrest HospitalNuclear Ab IA Ql (S)on 41-30-6824DYI SCR QUALNegativeNormalNegativeHillcrest HospitalComment on above:Order Comment: Specimen Type: BLOOD SPECIMEN Ordering Facility: [facility] Address: [address] [place], [place] [address]Result Comment: The qualitative antinuclear antibody screen test performed using the following antigens: dsDNA, Chromatin, Ribosomal P, SS-A 60, SS-A 52, SS-B, Sm, SmRNP, COMMERCIAL LITIGATION ASSOCIATE A, COMMERCIAL LITIGATION ASSOCIATE 68, Scl- 70, Alice-1,and Centromere B. Methodology: Multiplex flow immunoassay.Performed By: #### 39045-8 #### [facility] IA [id number] [address] [place] [address] [place] AMERICAPROTEINASE 3 ANTIBODYon 15-43-2947Mvcddebwwc 3 Ab Qn (S)<0.2Normal<1.0[facility] HospitalComment on above:Order Comment: Specimen Type: BLOOD SPECIMEN Ordering Facility: [facility] Address: [address] [place], [place] [address]Performed By: #### 16737-9 #### [facility] IA [id number] [address] [place] [address] [place] AMERICARheumatoid fact SerPl-aCncon 36-94-8696Lpdxqjkgul factor Qn[IU]/mLNormal<16[facility] HospitalComment on above:Order Comment: Specimen Type: BLOOD SPECIMEN Ordering Facility: [facility] Address: [address] [place], [place] [address]Performed By: #### 39776-4 #### [facility] IA [id number] [address] [place] [address] [place] AMERICAUS ABD RIGHT UPPER QUADRANT on 53-33-7022YH ABD RIGHT UPPER QUADRANT* * *Final Report* * * DATE OF EXAM: Dec 21 2023 6:09PM [facility] 1032 - ABD RIGHT UPPER QUADRANT / PROCEDURE REASON: [...] MD on Dec 22 2023 3:17PM EST [id number] Air Force Base Hospital Chest PA and Lateralon 17-26-2041NALTGVUYUQ: Stable exam with a persistent right pleural effusion. Transcribed Using Voice Recognition Transcribe Date/Time: Dec 21 2023 10:02A Dictated by: JEFFREY KRUEGER MD This examination was interpreted and the report reviewed and electronically signed by: JEFFREY KRUEGER MD on Dec 21 2023 10:03AM [facility]* * *Final Report* * * [...] cardiomediastinal silhouette. Bones and soft tissues: Unremarkable. [facility], [facility] [place] - 12/21/2023 * * *Final Report* * [...] MD on Dec 21 2023 10:03AM EST [facility] PA and LateralOrdered By: Ccf Provider on 12-21-2023 [facility] CentercCP IgG SerPl-aCncon 85-35-7328Ufming citrullinated peptide IgG Qn<15Normal<20[facility]st HospitalComment on above:Order Comment: Specimen Type: BLOOD SPECIMEN [facility] Facility: [facility] Address: [address] [place], [place] [address]Performed By: #### 52668-6 #### [facility] CLIA [id number] [address] [place], [place] [address] 12-20-2023 ALLIED HEALTHHNO ID: [id number] Author: AMNA MASSEY RT(R) Service: ? Author [...] PATIENT PRESENTS WITH AN IMPLANTABLE OR ATTACHED TALENT SCOUT: No ALLERGIES: Reviewed and unchanged CONTRAST ALLERGY: [...] PERIPHERAL IV DATA: Inpatient - refer to [facility] documentation RADIOLOGY DEPARTMENT: CT; Exam(s) Completed: Abdomen/Pelvis SIGNATURE: RT Arely(R) PATIENT NAME: Sav Raymundo DATE: December 20, 2023 TIME: 5:06 [facility] [place]: [id number] Author: OBI HAAS Tech Service: Radiology Author Type: Work Car Operator Type: Allied Health Filed: 12/20/2023 15:12 Note [...] PATIENT PRESENTS WITH AN IMPLANTABLE OR ATTACHED TALENT SCOUT: No RADIOLOGY DEPARTMENT: General X-ray: Exam(s) Completed: Chest X-Ray PERIPHERAL IV DATA: Not applicable SIGNED BY: Levy Castanon December 20, 2023 3:12 PMNormalNew England Rehabilitation Hospital at [facility] W Auto Differential panel (Bld) on 15-71-5811Lrryncbpn (Bld) [#/Vol]0.05 10*3/uLNormal<0.11[facility] Comment on above:Order Comment: Specimen Type: BLOOD SPECIMEN [facility] Facility[facility] Address: [address] [place], [place] [address]Performed By: #### MPO #### [facility] CLIA [id number] [address] [place] [address] 34645Stggfytwa/100 WBC (Bld)0.7 %[facility] Comment on above:Order Comment: Specimen Type: BLOOD SPECIMEN Ordering Facility: [facility] Address: [address] [place], [place] [address]Performed By: #### MPO #### [facility] CLIA [id number] [address] [place] [address] 45495Scywshygcqsa cell count method Nom (Bld)AutoNormal [facility] HospitalComment on above:Order Comment: Specimen Type: BLOOD SPECIMEN Ordering Facility: [facility] Address: [address] [place], [place] [address]Performed By: #### MPO #### [facility] CLIA [id number] [address] [place] [address] 02739Crvkaqgonzb (Bld) [#/Vol]0.20 10*3/uLNormal<0.46 [facility] HospitalComment on above:Order Comment: Specimen Type: BLOOD SPECIMEN Order[facility] Facility: [facility] Address: [address] [place], [place] [address]Performed By: #### MPO #### [facility] CLIA [id number] [address] [place] [address] 40607Rbffafaoryh/100 WBC (Bld)2.9 %NormalLeary HospitalComment on above:Order Comment: Specimen Type: BLOOD SPECIMEN Ordering Facility: [facility] Address: [facility] [place], [place] [address]Performed By: #### MPO #### [facility] CLIA [id number] [address] [place] [address] 600[address]Bttndfoqomv distribution width (RBC) [Ratio]15.3 % High11.5-15.0Leary HospitalComment on above:Order Comment: Specimen Type: BLOOD SPECIMEN Ordering Facility: [facility] Address: [address] [place], [place] [address]Performed By: #### MPO #### [facility] CLIA [id number] [address] [place] [address] 01167Zljjujvqnj (Bld) [Volume fraction]39.8 %Normal 39.0-51.0Leary HospitalComment on above:Order Comment: Specimen Type: BLOOD SPECIMEN Ordering Facility: [facility] Address: [address] [place], [place] [address]Performed By: #### MPO #### [facility] CLIA [id number] [address] [place] [address] 35697Tukktznnme (Bld) [Mass/Vol]12.7 g/dLLow13.0-17.0 [facility] HospitalComment on above:Order Comment: Specimen Type: BLOOD SPECIMEN Ordering Facility: [facility] Address: [address] [place], [place] [address]Performed By: #### MPO #### [facility] CLIA [id number] [address] [place] [address] 66367Vhttcawr granulocytes (Bld) [#/Vol]0.05 10*3/uL Normal<0.10Leary HospitalComment on above:Order Comment: Specimen Type: BLOOD SPECIMEN Ordering Facility: [facility] Address: [address] [place], [place] [address]Performed By: #### MPO #### [facility] CLIA [id number] [address] [place] [address] 18916Dluwytqh granulocytes/100 WBC (Bld)0.7 %Normal Leary HospitalComment on above:Order Comment: Specimen Type: BLOOD SPECIMEN Ordering Facility: [facility] Address: [address] [place], [place] [address]Performed By: #### MPO #### [facility] CLIA [id number] [address] [place] [address] 65638Flfihbsltqc (Bld) [#/Vol]1.26 10*3/uLNormal1.00-4.00 [facility] HospitalComment on above:Order Comment: Specimen Type: BLOOD SPECIMEN Ordering Facility: [facility] Address: [address] [place], [place] [address]Performed By: #### MPO #### [facility] CLIA [id number] [address] [place] [address] 46187Jbhegymulql/100 WBC (Bld)18.0 %[facility] HospitalComment on above:Order Comment: Specimen Type: BLOOD SPECIMEN Ordering Facility: [facility] Address: [address] [place], [place] [address]Performed By: #### MPO #### [facility] CLIA [id number] [address] [place] [address] 27571JOI (RBC) [Entitic mass]29.9 gpZokoil60.0-34.0 [facility] HospitalComment on above:Order Comment: Specimen Type: BLOOD SPECIMEN Ordering Facility: [facility] Address: [address] [place], [place] [address]Performed By: #### MPO #### [facility] CLIA [id number] [address] [place] [address] 55261HYZN (RBC) [Mass/Vol]31.9 g/eZHcjbly00.5-36.0 [facility] HospitalComment on above:Order Comment: Specimen Type: BLOOD SPECIMEN Ordering Facility: [facility] Address: [address] [place], [place] [address]Performed By: #### MPO #### [facility] CLIA [id number] [address] [place] [address] [place] [address]FPO (RBC) [Entitic vol]93.6 kNVzocjr58.0-100.0 [facility] HospitalComment on above:Order Comment: Specimen Type: BLOOD SPECIMEN Ordering Facility: [facility] Address: [facility] [place], [place] [address]Performed By: #### MPO #### [facility] CLIA [id number] [address] [place] [address] 80402Ycmxkyxnx (Bld) [#/Vol]0.66 10*3/uLNormal<0.87 [facility] HospitalComment on above:Order Comment: Specimen Type: BLOOD SPECIMEN Ordering Facility: [facility] Address: [address] [place], [place] [address]Performed By: #### MPO #### [facility] CLIA [id number] [address] [place] [address] 68540Sgltffphm/100 WBC (Bld)9.4 %[facility] Hospital Comment on above:Order Comment: Specimen Type: BLOOD SPECIMEN Ordering Facility: [facility] Address: [address] [place], [place] [address]Performed By: #### MPO #### [facility] CLIA [id number] [address] [place] [address] 78858Gxiaqllmvac (Bld) [#/Vol]4.78 10*3/uLNormal1.45-7.50 [facility] HospitalComment on above:Order Comment: Specimen Type: BLOOD SPECIMEN Ordering Facility: [facility] Address: [address] [place], [place] [address]Performed By: #### MPO #### [facility] CLIA [id number] [address] [place] [address] 38792Oofzrsehyfl/100 WBC (Bld)68.3 %NormalLeary HospitalComment on above:Order Comment: Specimen Type: BLOOD SPECIMEN Ordering Facility: [facility] Address: [address] [place], [place] [address]Performed By: #### MPO #### [facility] CLIA [id number] [address] [place] [address] 239[address]Sibgawnxz RBC (Bld) [#/Vol]10*3/uLNormal<0.01 [facility] HospitalComment on above:Order Comment: Specimen Type: BLOOD SPECIMEN Order[facility] Facility: [facility] Address: [address] [place], [place] [address]Performed By: #### MPO #### [facility] CLIA [id number] [address] [place] [address] 19537Snlttuovg RBC/100 WBC (Bld) [Ratio]0.0 /100 WBC NormalHiholy family hospital HospitalComment on above:Order Comment: Specimen Type: BLOOD SPECIMEN Ordering Facility: [facility] Address: [address] [place], [place] [address]Performed By: #### MPO #### [facility] CLIA [id number] [address] [place] [address] [id number] mean volume (Bld) [Entitic vol]10.1 fL Normal9.0-12.7[facility] HospitalComment on above:Order Comment: Specimen Type: BLOOD SPECIMEN Ordering Facility: [facility] Address: [address] [place], [place] [address]Performed By: #### MPO #### [facility] CLIA [id number] [address] [place] [address] 55083Srlqvmujb (Bld) [#/Vol]229 10*3/bRZlcybz986-270 [facility] HospitalComment on above:Order Comment: Specimen Type: BLOOD SPECIMEN Ordering Facility: [facility] Address: [address] [place], [place] [address]Performed By: #### MPO #### [facility] CLIA [id number] [address] [place] [address] [id number] (Bld) [#/Vol]4.25 10*6/uLNormal4.20-6.00 [facility] HospitalComment on above:Order Comment: Specimen Type: BLOOD SPECIMEN Ordering Facility: [facility] Address: [address] [place], [place] [address]Performed By: #### MPO #### [facility] [facility] CLIA [id number] [address] [address]PKP (Bld) [#/Vol]7.00 10*3/uLNormal3.70-11.00 [facility] on above:Order Comment: Specimen Type: BLOOD SPECIMEN Ordering Facility: [facility] Address: [facility] [place] [address]Ycleyzubg By: #### MPO #### [facility] CLIA [id number] [address] [address]BJUWev [id number] Visit (BERNARD) SAV RAYMUNDO ([id number]) 1950 Date Time Provider Department 12/20/23 2:00 PM TITA LANDRY During your visit today, we recorded the following information about you: Temperature Respiration Weight Height 97.3 degrees 18/minute 104.8 kg 1.829 m Tita Landry APRN.TRUCK BODY BUILDER 01/19/2024 9:56 PM Signed Heart, Vascular and Thoracic [place] DEPARTMENT OF THORACIC SURGERY OUTPATIENT VISIT DATE December 20, 2023 OUTPATIENT VISIT TYPE ESTABLISHED PT NAME: Sav Raymundo CLINIC NO: [id number] THORACIC SURGEON: Ronaldo Flood M.D. 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 Right pleura, biopsy: - Chronic pleuritis with mesothelial hyperplasia (see comment). B. Right pleura, biopsy: - Acute organizing and chronic pleuritis (see comment). SD/ 11/22/2023 Diagnosis Comment A. The biopsy contains [...] ever since surgery. Note (more content not included)...[facility] ABD/PEL W IVCONon 65-56-5644HH ABD/PEL W IVCON* * *Final Report* * * DATE OF EXAM: Dec 20 2023 5:12PM [facility] 0530 - CT ABD/PEL W [...] MD on Dec 20 2023 5:40PM EST [id number]_IDCSIACNNormalMer[facility] 12-20-2023 Cholesterol [Mass/Vol]106 mg/dLNormal<200[facility] HospitalComment on above: Order Comment: Specimen Type: BLOOD SPECIMEN [facility]ing Facility: [facility] Address: [address] [place] [address]Dlhnpq Comment: <200 mg/dL, Desirable 200-239 mg/dL, Borderline high >239 mg/dL, High Reference: 1. National Cholesterol Education Program ATP III Guideline At-A-Glance Quick Desk Reference: National Heart, Lung, and Blood [place]. National Institutes of Health. 2001: NIH Publication No. 01-3305.Performed By: #### 25935-9 #### [facility] CLIA [id number] [address] [place] [address] [place] OF AMERICAComprehensive metabolic 2000 panelon 26-76-8694Qkuzaam [Mass/Vol]4.0 g/dLNormal3.9-4.9[facility] Comment on above:Order Comment: Specimen Type: BLOOD SPECIMEN [facility]ing Facility: [facility] Address: [address] [place], [place] [address]Performed By: #### 1987-10, #### [facility] CLIA [id number] [address] [place] [address] [place] AMERICAALP [Catalytic activity/Vol] 110 U/RIwdzor69-747Djaadunae HospitalComment on above:Order Comment: Specimen Type: BLOOD SPECIMEN Ordering Facility: [facility] Address: [address] [place], [place] [address]Performed By: #### 1987-10, #### [facility] CLIA [id number] [address] [place] [address] [place] AMERICAALT [Catalytic activity/Vol] 13 U/JIwsnwc61-82Knykhqmxm HospitalComment on above:Order Comment: Specimen Type: BLOOD SPECIMEN Ordering Facility: [facility] Address: [address] [place], [place] [address]Performed By: #### 1987-10, #### [facility] CLIA [id number] [address] [place] [address] [place] AMERICAAnion gap [Moles/Vol]12 mmol/LNormal8-15[facility] HospitalComment on above:Order Comment: Specimen Type: BLOOD SPECIMEN Ordering Facility: [facility] Address: [address] [place], [place] [address]Performed By: #### 1987-10, #### [facility] CLIA [id number] [address] [place] [address] [place] AMERICAAST [Catalytic activity/Vol] 20 U/CXpfkyo17-93Dzajutkna HospitalComment on above:Order Comment: Specimen Type: BLOOD SPECIMEN Ordering Facility: [facility] Address: [address] [place], [place] [address]Performed By: #### 1987-10, #### [facility] CLIA [id number] [address] [place] [address] [place] AMERICABilirubin [Mass/Vol]0.6 mg/dL Normal0.2-1.3[facility] HospitalComment on above:Order Comment: Specimen Type: BLOOD SPECIMEN Ordering Facility: [facility] Address: [address] [place], [place] [address]Performed By: #### 1987-10, #### [facility] CLIA [id number] [address] [place] [address] [place] AMERICACalcium [Mass/Vol]9.1 mg/dL Normal8.5-10.2[facility] HospitalComment on above:Order Comment: Specimen Type: BLOOD SPECIMEN Ordering Facility: [facility] Address: [address] [place], [place] [address]Performed By: #### 1987-10, #### [facility] CLIA [id number] [address] [place] [address] [place] AMERICAChloride [Moles/Vol]105 mmol/KUljrug93-469Bsizijzoc HospitalComment on above:Order Comment: Specimen Type: BLOOD SPECIMEN Ordering Facility: [facility] Address: [address] [place], [place] [address]Performed By: #### 1987-10, #### [facility] CLIA [id number] [address] [place] [address] [place] AMERICACO2 [Moles/Vol]20 mmol/LLow 22-30[facility] HospitalComment on above:Order Comment: Specimen Type: BLOOD SPECIMEN Ordering Facility: [facility] Address: [address] [place], [place] [address]Performed By: #### 1987-10, #### [facility] CLIA [id number] [address] [place] [address] [place] AMERICACreatinine [Mass/Vol]1.07 mg/dLNormal0.73-1.22[facility] HospitalComment on above:Order Comment: Specimen Type: BLOOD SPECIMEN Ordering Facility: [facility] Address: [address] [place], [place] [address]Performed By: #### 1987-10, #### [facility] CLIA [id number] [address] [place] [address] [place] AMERICACreatinine and Glomerular filtration rate.predicted panel (S/P/Bld)74 mL/min/1.73m???Normal>=60HiFederal Medical Center, DevensComment on above:Order Comment: Specimen Type: BLOOD SPECIMEN Ordering Facility: [facility] Address: [address] [place], [place] [address]Result Comment: Estimated Glomerular Filtration Rate (eGFR) is [...] reflect actual GFR.Performed By: #### 1987-10, #### [facility] IA [id number] [address] [place] [address] [place] AMERICAGlucose [Mass/Vol]111 mg/dL Marr92-88Pkkqediry HospitalComment on above:Order Comment: Specimen Type: BLOOD SPECIMEN Ordering Facility: [facility] Address: [address] [place], [place] [address]Result Comment: The [place] Diabetes Association (ADA) provides guidance for cutoff [...] Standards of Medical Care in Diabetes 2016, [place] [employer]. Diabetes Care. 2016.39(Suppl 1).Performed By: #### 1987-10, #### [facility] CLIA [id number] [address] [place] [address] [place] AMERICAProtein [Mass/Vol]6.9 g/dL Normal6.3-8.0[facility] HospitalComment on above:Order Comment: Specimen Type: BLOOD SPECIMEN Ordering Facility: [facility] Address: [address] [place], [place] [address]Performed By: #### 1987-10, #### [facility] CLIA [id number] [address] [place] [address] [place] AMERICASodium [Moles/Vol]137 mmol/L Nchayp932-427Ipwznolkd HospitalComment on above:Order Comment: Specimen Type: BLOOD SPECIMEN Ordering Facility: [facility] Address: [address] [place], [place] [address]Performed By: #### 1987-10, #### [facility] CLIA [id number] [address] [place] [address] [place] AMERICAUrea nitrogen [Mass/Vol]15 mg/dLNormal9-24[facility] HospitalComment on above:Order Comment: Specimen Type: BLOOD SPECIMEN Ordering Facility: [facility] Address: [address] [place], [place] [address]Performed By: #### 1987-10, #### [facility] CLIA [id number] [address] [place] [address] [place] OF AMERICAECG COMPLETEon 73-05-7035CJG COMPLETEVentricular Rate : 83 BPM Atrial Rate : 83 BPM P-R Interval : 184 ms QRS Duration : 80 ms Q-T Interval : 348 ms QTC Calculation(Bazett) : 408 ms Calculated P [place] : 78 degrees Calculated R [place] : 3 degrees Calculated T [place] : 230 degrees POOR DATA QUALITY, INTERPRETATION MAY BE ADVERSELY AFFECTED NORMAL SINUS RHYTHM NONSPECIFIC T WAVE ABNORMALITY ABNORMAL ECG NO PREVIOUS ECGS AVAILABLE NO STEMI CONFIRMED 2057 Confirmed by MERLYN HALL MD ([id number]), editor index ROLANDO SPAULDING ([id number]) on 12/21/2023 8:32:15 AM NAME : SAV RAYMUNDO PID : [id number] : 1950 Gender : Male Race : ORD : [id number] Procedure Date : Dec 20 2023 19:12:11 Edit Date : Dec 21 2023 08:32:16 Diagnosis: POOR DATA QUALITY, INTERPRETATION MAY BE ADVERSELY AFFECTED NORMAL SINUS RHYTHM NONSPECIFIC T WAVE ABNORMALITY ABNORMAL ECG NO PREVIOUS ECGS AVAILABLE NO STEMI CONFIRMED 2057 Confirmed by MERLYN HALL MD ([id number]), editor index ROLANDO SPAULDING ([id number]) on 12/21/2023 8:32:15 AM Test Reason : Chest Pain Location : 26 : ER L ED Overread By : MERLYN HALL MD Edited By : ROLANDO SPAULDING Referred By : , Acquired by : ,NormalHillcrest HospitalED NOTEon 17-87-8706LB NOTEHNO ID: [id number] Author: CHARLIE GRANGER RN Service: ? Author Type: Registered Nurse Type: ED Notes Filed: 12/20/2023 18:48 Note Text: Bed: ED-25 Expected date: Expected time: Means of arrival: Comments: triageNormalHillcrest HospitalED NOTEHNO ID: [id number] Author: KEVIN HINSON RN Service: ? Author Type: Registered Nurse Type: ED Notes Filed: 12/20/2023 14:59 Note Text: Pt arrives to ED from appointment. Pt reported had l pleural effusion done today. Reportedly gets drained multiple times per week. Pt has had incread n/v/d x1 week. Abdominal area is distended according to SEAL [employer]ER. Pt is AANDOx3 and ambulatoryNormalHillcrest HospitalED PROV NOTEon 66-73-9626DU PROV NOTEHNO ID: [id number] Author: MERLYN HALL DO Service: Emergency Medicine [...] (more content not included)...NormalHillcrest HospitalED Triage Noteon 47-22-9499PI Triage NoteHNO ID: [id number] Author: RAFAELA BATISTA MD Service: Emergency Medicine [...] (radiology procedure) ECG COMPLETE SIGNATURE: Rafaela Batista MDNormalBeth Israel Deaconess HospitalGas + CO Pnl BldVon 92-08-5410Koktsvwyd [Moles/Vol]4.6 mmol/LNormal3.7-5.1HVibra Hospital of Southeastern MassachusettsComment on above:Order Comment: Specimen Type: BLOOD SPECIMEN Ordering Facility[facility] Address: [address] [place], [place] [address]Performed By: #### MPO #### [facility] CLIA [id number] [address] [place], [place] [address]Performed By: #### 1988-5, 60773-0 #### [facility] CLIA [id number] [address] [place] [address] [place] AMERICAGas and Carbon monoxide panel (BldV)on 49-94-3102DCSU DEFICIT, VENOUS-2 mmol/WIqgpdq-4-3Tplrzhiim Hospital Comment on above:Order Comment: Specimen Type: BLOOD SPECIMEN Ordering Facility: [facility] Address: [address] [place], [place] [address]Performed By: #### MPO #### [facility] CLIA [id number] [address] [place] [address]Prwz dxpjzqarrlb85.6 [degF][facility] Comment on above:Order Comment: Specimen Type: BLOOD SPECIMEN Ordering Facility: [facility] Address: [address] [place], [place] [address]Performed By: #### MPO #### [facility] CLIA [id number] [address] [place] [address]Uymhjhl.ionized (Bld) [Mass/Vol]1.22 mmol/LNormal 1.08-1.30Leary HospitalComment on above:Order Comment: Specimen Type: BLOOD SPECIMEN Ordering Facility: [facility] Address: [address] [place], [place] [address]Performed By: #### MPO #### [facility] [id number] [address] [place] [address]Nggaocjsolobogpjm (BldV) [Mass fraction]<1.0Normal 0.0-2.0Leary HospitalComment on above:Order Comment: Specimen Type: BLOOD SPECIMEN Order[facility]: [facility] Address: [address] [place] [address]Toqvtz Comment: Carboxyhemoglobin Reference Range for Smokers: 2.0-8.0%Performed By: #### MPO #### [facility] CLIA [id number] [address] [place] [address] 655[address]Iwdoyykq [Moles/Vol]111 mmol/AMtdc56-156Xyqafpgrh HospitalComment on above:Order Comment: Specimen Type: BLOOD SPECIMEN Ordering Facility: [facility] Address: [address] [place], [place] [address]Eleresfkg By: #### MPO #### [facility] CLIA [id number] [address] [place] [address]MY9 (BldV) [Partial pressure]44 mm[Hg]Dynpju70-59 [facility] HospitalComment on above:Order Comment: Specimen Type: BLOOD SPECIMEN Ordering Facility: [facility] Address: [address] [place], [place] [address]Performed By: #### MPO #### [facility] CLIA [id number] [address] [place] [address]Upkeyzx [Mass/Vol]112 mg/pSKamp18-999Rzrixajho HospitalComment on above:Order Comment: Specimen Type: BLOOD SPECIMEN Ordering Facility: [facility] Address: [address] [place] [id number] By: #### MPO #### [facility] CLIA [id number] [address] [place] [address]AWQ8 (Bld) [Moles/Vol]23 mmol/PXlt36-34Ncislokkg HospitalComment on above:Order Comment: Specimen Type: BLOOD SPECIMEN Ordering Facility: [facility] Address: [address] [place], [place] [address]Performed By: #### MPO #### [facility] CLIA [id number] [address] [place] [address]Mfhyqcpofc (Bld) [Volume fraction]39.6 %Normal 39.0-51.0Leary HospitalComment on above:Order Comment: Specimen Type: BLOOD SPECIMEN Order[facility] Facility: [facility] Address: [address] [place], [place] [address]Performed By: #### MPO #### [facility] CLIA [id number] [address] [place] [address] 14[address]Ajqrfqnskg (Bld) [Mass/Vol]12.9 g/dLLow13.0-17.0 Leary HospitalComment on above:Order Comment: Specimen Type: BLOOD SPECIMEN Ordering Facility: [facility] Address: [address] [place], [place] [address]Pcecxgkem By: #### MPO #### [facility] CLIA [id number] [address] [place] [address]Chvnpbu [Moles/Vol]0.9 mmol/LNormal0.5-2.2[facility] HospitalComment on above:Order Comment: Specimen Type: BLOOD SPECIMEN Ordering Facility: [facility] Address: [address] [place], [place] [address]Vsoltpnsm By: #### MPO #### [facility] CLIA [id number] [address] [place] [address] 49[address]Cjqmrgvjzblas (Bld) [Mass fraction]%Normal0.0-1.5 [facility] HospitalComment on above:Order Comment: Specimen Type: BLOOD SPECIMEN Ordering Facility: [facility] Address: [address] [place], [place] [address]Dygbmvbtt By: #### MPO #### [facility] CLIA [id number] [address] [place] [address] [id number] THERAPYRA=Room AirNormLovell General HospitalComment on above:Order Comment: Specimen Type: BLOOD SPECIMEN Ordering [facility]: [facility] Address: [address] [place], [place] [address]Dapjnfgsy By: #### MPO #### [facility] CLIA [id number] [address] [place] [address] 49[address]Ybfsof (BldV) [Partial pressure]mm[Hg]Snt83-68 [facility] HospitalComment on above:Order Comment: Specimen Type: BLOOD SPECIMEN Order[facility]: [facility] Address: [address] [place], [place] [address]Qfdaadbzi By: #### MPO #### [facility] CLIA [id number] [address] [place] [address] 344[address]Tfvyjj saturation in Venous blood30 %Nfz58-62 [facility] HospitalComment on above:Order Comment: Specimen Type: BLOOD SPECIMEN [facility] Address: [address] [place], [place] [address]Jwxvppujo By: #### MPO #### [facility] CLIA [id number] [address] [place] [address] 129[address]Mjimofgxmholv (BldV) [Mass fraction]29 %Tjx20-60 Leary HospitalComment on above:Order Comment: Specimen Type: BLOOD SPECIMEN Order[facility]: [facility] Address: [address] [place], [place] [address]Thqlikrbn By: #### MPO #### [facility] CLIA [id number] [address] [place] [address] 51413oA (BldV)7.34 [pH]Normal7.32-7.42[facility] Comment on above:Order Comment: Specimen Type: BLOOD SPECIMEN Ordering Facility: [facility] Address: [address] [place], [place] [address]Performed By: #### MPO #### [facility] CLIA [id number] [address] [place] [address]Nqmqac [Moles/Vol]138 mmol/LQmamdi112-005Obmisuafk HospitalComment on above:Order Comment: Specimen Type: BLOOD SPECIMEN Ordering Facility: [facility] Address: [address] [place], [place] [address]Performed By: #### MPO #### [facility] CLIA [id number] [address] [place] [address]CPFH SENSITIVITY TROPONIN T (INITIAL)on 12-20-2023 Troponin T.cardiac High sensitivity method [Mass/Vol]13 ng/LHigh<12Hicrest HospitalComment on above:Order Comment: Specimen Type: BLOOD SPECIMEN [facility] Address: [address] [place] [address]Tzfgwoihd By: #### 1987-, 97032-5 #### [facility] IA [id number] [address] [place], [place] [address]HIGH SENSITIVITY TROPONIN T (SECOND)on 49-76-7873Thtnxpjq T.cardiac High sensitivity method [Mass/Vol]12 ng/LHigh<12Hicrest HospitalComment on above:Order Comment: Specimen Type: BLOOD SPECIMEN Ordering Facility: [facility] Address: [address] [place] [address] 99[address]Kskmzeuwl By: #### 1987-, 77450-6 #### [facility] CLIA [id number] [address] [place], [place] [address]HIGH SENSITIVITY TROPONIN T (THIRD) 3 HRS AFTER INITIALon 84-12-2134Asajyhnz T.cardiac High sensitivity method [Mass/Vol]11 ng/LNormal<12[facility] HospitalComment on above:Order Comment: Specimen Type: BLOOD SPECIMEN Ordering Facility: [facility] Address: [address] [place], [place] [address]Performed By: #### 28437-7 #### [facility] CLIA [id number] [address] [place] [address] [address]ETHISTORY PHYSICALon 24-53-4105PANXWCV PHYSICALHNO ID: [id number] Author: ALPA OLIVA APRN.CNP Service: General Internal [...] unknown etiology status post an R VATS 11 19 and pleurodesis with right Pleurx catheter placement, [...] malaise, (more content not included)...NormalHillcrest HospitalLipase SerPl-cCncon 95-89-0497Jhaswt [Catalytic activity/Vol]40 U/L Hxvfrf40-32Igcykodxn HospitalComment on above:Order Comment: Specimen Type: BLOOD SPECIMEN Ordering Facility: [facility] Address: [address] [place], [place] [address]Performed By: #### #### [facility] CLIA [id number] [address] [place] [address] [place] AMERICAMagnesium SerPl-mCncon 64-80-5163Voqqzblse [Mass/Vol]2.1 mg/dLNormal1.7-2.3[facility] HospitalComment on above:Order Comment: Specimen Type: BLOOD SPECIMEN Ordering Facility: [facility] Address: [address] [place], [place] [address]Performed By: #### #### [facility] CLIA [id number] [address] [place] [address] OF AMERICANT-proBNP SerPl-mCncon 36-46-0255Mcqbrjuvzdz peptide.B prohormone N-Terminal [Mass/Vol]464 pg/mLHigh <125Hillcrest HospitalComment on above:Order Comment: Specimen Type: BLOOD SPECIMEN Ordering Facility: [facility] Address: [address] [place], [place] [address]Performed By: #### 1988-5, 18054-0 #### [facility] CLIA [id number] [address] [place] [address] [place] AMERICATrigl SerPl-mCncon 12-20-2023 Triglyceride [Mass/Vol]86 mg/dLNormal<150[facility]st HospitalComment on above: Order Comment: Specimen Type: BLOOD SPECIMEN Ordering Facility: [facility] Address: [address] [place], [place] [address]Result Comment: <150 mg/dL, Normal 150-199 mg/dL, Borderline high 200-499 mg/dL, High >499 mg/dL, Very high Reference: 1. National Cholesterol Education Program ATP III Guideline At-A-Glance Quick Desk Reference: National Heart, Lung, and Blood [place]. National Institutes of Health. 2001: NIH Publication No. 01-3305.Performed By: #### 61305-4 #### [facility] CLIA [id number] [address] [place] [address] [place] AMERICATriglyceride [Mass/Vol]on 98-36-3957AEWHCLP TIMEUnknown\X09\NormalHillcrest HospitalComment on above:Order Comment: Specimen Type: BLOOD SPECIMEN Ordering Facility: [facility] Address: [address] [place], [place] [address]Performed By: #### 64688-8 #### [facility] CLIA [id number] [address] [place], [place] [address] [address] [place] AMERICAUrinalysis complete panel (U)on 91-77-0130Hlaycwucd Ql (U)NegativeNormalNegativeHillcrest HospitalComment on above:Order Comment: Specimen Type: URINE SPECIMEN Ordering Facility: [facility] Address: [address] [place], [place] [address]Performed By: #### 54717-3 #### [facility] CLIA [id number] [address] [place] [address] [place] AMERICAClarity (Unsp spec)Clear NormalClearHillcrest HospitalComment on above:Order Comment: Specimen Type: URINE SPECIMEN [facility]ing Facility[facility] Address: [address] [place], [place] [address]Performed By: #### 49666-1 #### [facility] CLIA [id number] [address] [place] [address] [place] AMERICAColor (U)YellowNormalYellow Leary HospitalComment on above:Order Comment: Specimen Type: URINE SPECIMEN [facility]ing [facility] Address: [address] [place], [place] [address]Performed By: #### 16561-7 #### [facility] CLIA [id number] [address] [place] [address] [place] AMERICAEpithelial cells LM.HPF (Urine sed) [#/Area]ModerateNormalHillcrest HospitalComment on above:Order Comment: Specimen Type: URINE SPECIMEN Ordering Facility[facility] Address: [address] [place], [place] [address]Performed By: #### 78928-6 #### [facility] CLIA [id number] [address] [place] [address] [place] AMERICAGlucose Test strip (U) [Mass/Vol]NegativeNormalTrace, NegativeHillcrest HospitalComment on above:Order Comment: Specimen Type: URINE SPECIMEN Ordering Facility: [facility] Address: [address] [place], [place] [address]Performed By: #### 08359-9 #### [facility] CLIA [id number] [address] [place] [address] [place] AMERICAHemoglobin Ql (U)Negative NormalNegative, TraceHillcrest HospitalComment on above:Order Comment: Specimen Type: URINE SPECIMEN Ordering Facility[facility] Address: [address] [place], [place] [address]Performed By: #### 74621-6 #### [facility] CLIA [id number] [address] [place] [address] [place] AMERICAKetones Ql (U)NegativeNormal Negative, TraceHillcrest HospitalComment on above:Order Comment: Specimen Type: URINE SPECIMEN Order[facility] Facility[facility] Address: [address] [place], [place] [address]Performed By: #### 54342-2 #### [facility] CLIA [id number] [address] [place] [address] [place] AMERICALeukocyte esterase Test strip Ql (U)NegativeNormalNegative, 25 Francisco/uLHillcrest HospitalComment on above:Order Comment: Specimen Type: URINE SPECIMEN [facility] Facility: [facility] Address: [address] [place], [place] [address]Performed By: #### [id number] #### [facility] CLIA [id number] [address] [place] [address] [place] AMERICANitrite Ql (U)NegativeNormal NegativeHillcrest HospitalComment on above:Order Comment: Specimen Type: URINE SPECIMEN Ordering Facility: [facility] Address: [address] [place], [place] [address]Performed By: #### [id number] #### [facility] CLIA [id number] [address] [place] [address] [place] AMERICApH (U)6.0 [pH]Normal5.0-8.0 [facility] HospitalComment on above:Order Comment: Specimen Type: URINE SPECIMEN Ordering Facility: [facility] Address: [address] [place], [place] [address]Performed By: #### [id number] #### [facility] CLIA [id number] [address] [place] [address] [place] OF AMERICAProtein (U) [Mass/Vol]Trace NormalTrace, NegativeHillcrest HospitalComment on above:Order Comment: Specimen Type: URINE SPECIMEN Ordering Facility: [facility] Address: [address] [place], [place] [address]Performed By: #### [id number] #### [facility] CLIA [id number] [address] [place] [address] [place] [facility]OVE HOSPITALRBC LM.HPF (Urine sed) [#/Area]0-3 /HPFNormal0-3 /HPFHillcrest HospitalComment on above:Order Comment: Specimen Type: URINE SPECIMEN Ordering Facility: [facility] Address: [address] [place], [place] [address]Performed By: #### [id number] #### [facility] CLIA [id number] [address] [place] [address] [place] OF AMERICASpecific gravity (U) [Rel density]1.756Wajyii2.005-1.030Hillcrest HospitalComment on above:Order Comment: Specimen Type: URINE SPECIMEN Ordering Facility: [facility] Address: [address] [place], [place] [address]Performed By: #### [id number] #### [facility] CLIA [id number] [address] [place] [address] [place] OF AMERICAUrobilinogen Ql (U)Normal NormalNormalHillcrest HospitalComment on above:Order Comment: Specimen Type: URINE SPECIMEN Ordering Facility: [facility] Address: [address] [place], [place] [address]Performed By: #### [id number] #### [facility] CLIA [id number] [address] [place] [address] [place] OF AMERICAW LM.HPF (Urine sed) [#/Area]0-5 /HPFNormal0-5 /HPFHillcrest HospitalComment on above:Order Comment: Specimen Type: URINE SPECIMEN Ordering Facility: [facility] Address: [address] [place], [place] [address]Performed By: #### [id number] #### [facility] CLIA [id number] [address] [place] [address] [place] OF AMERICAXR CHEST 1V FRONTAL PORTon 79-46-4539VR CHEST 1V FRONTAL PORT* * *Final Report* [...] MD on Dec 20 2023 4:14PM EST [id number] Health Specialty Hospital of StoughtonXR CHEST 2V FRONTAL/LATon 26-65-9284KI CHEST 2V FRONTAL/LAT* * *Final Report* * [...] MD on Dec 21 2023 10:03AM EST [id number] Health Specialty Hospital of StoughtonXR Chest PA and Lateralon 46-15-7225Kiyynpfvj Study observation (narrative)[facility] CenterXR Chest PA and Lateralon 65-49-7419RVIVCGUQTS: Slight increase of the small right pleural effusion. A follow-up exam is recommended. Transcribed Using Voice Recognition Transcribe Date/Time: Dec 14 2023 1:14P Dictated by: JEFFREY KRUEGER MD This examination was interpreted and the report reviewed and electronically signed by: JEFFREY KRUEGER MD on Dec 14 2023 1:15PM [facility] RAD[facility]* * *Final Report* * * [...] cardiomediastinal silhouette. Bones and soft tissues: Unremarkable. [facility], [facility] [place] - 12/14/2023 * * *Final Report* * [...] KRUEGER MD on Dec 14 2023 1:15PM [facility] PA and LateralOrdered By: Ccf Provider on 12-14-2023 [facility] CenterCNOVon 28-56-0255SUCYQcbgbk Visit (BERNARD) SAV RAYMUNDO ([id number]) 1950 Date Time Provider Department 12/13/23 2:00 PM TITA LANDRY During your visit today, we recorded the following information about you: Temperature Pulse Respiration Blood pressure 97.3 degrees 68/minute 16/minute 129/80 Weight Height 104 kg 1.829 m Tita Landry APRN.TRUCK BODY BUILDER 01/16/2024 10:44 PM Signed [facility] Thor[facility] [place] DEPARTMENT OF THORACIC SURGERY OUTPATIENT VISIT DATE December 13, 2023 OUTPATIENT VISIT TYPE ESTABLISHED PT NAME: Sav Cantu Breanne [facility] NO: [id number] THORACIC SURGEON: Ronaldo Flood M.D. DATE OF SERVICE: 12/13/2023 PRINCIPAL DX: Pleural Effusion SURGICAL HX 11/20/2023: R VATS pleural biopsy, right construction equipment mechanic helper and doxycycline pleurodesis, right Pleurx catheter insertion, right 20Fr chest tube insertion Surgical Pathology 11/20/2023: FINAL DIAGNOSIS A. Right pleura, biopsy: - Chronic pleuritis with mesothelial hyperplasia (see comment). B. Right pleura, biopsy: - Acute organizing and chronic pleuritis (see comment). SD/ 11/22/2023 Diagnosis Comment A. The biopsy contains [...] of awilda dr (more content not included)... [facility] HospitalXR CHEST 2V FRONTAL/LATon 11-36-9534GQ CHEST 2V FRONTAL/LAT* * *Final Report* * [...] MD on Dec 14 2023 1:15PM EST [id number] [facility] Force [facility] Hospital Chest PA and Lateralon 22-32-7206Xitufrbuw Study observation (narrative)[facility] CenterCNOVon 14-41-7706UNWCCxajen Visit (BERNARD) SAV RAYMUNDO ([id number]) 1950 M Date Time Provider Department 12/03/23 1:00 PM TITA LANDRY During your visit today, we recorded the following information about you: Temperature Pulse Respiration Blood pressure 97.8 degrees 74/minute 14/minute 120/78 Weight Height 102.4 kg 1.829 m Tita Landry APRN.TRUCK BODY BUILDER 12/30/2023 10:10 PM Signed Heart, Vascular and Thoracic [place] DEPARTMENT OF THORACIC SURGERY OUTPATIENT VISIT DATE December 03, 2023 OUTPATIENT VISIT TYPE ESTABLISHED PT NAME: Sav Raymundo [facility] NO: [id number] THORACIC SURGEON: Ronaldo Flood M.D. DATE OF SERVICE: 12/03/2023 PRINCIPAL DX: Recurrent Right Pleural Effusion SURGICAL HX 11/20/2023: R VATS pleural biopsy, right construction equipment mechanic helper and doxycycline pleurodesis, right Pleurx catheter insertion, [...] patient underwent R VATS pleural biopsy, right construction equipment mechanic helper and doxycycline pleurodesis, right Pleurx catheter insertion, [...] States pleurx was las (more content not included)...NormalHillMorton HospitalXR CHEST 2V FRONTAL/LATon 63-72-2593CK CHEST 2V FRONTAL/LAT* * *Final Report* * [...] MD on Dec 05 2023 12:53PM EST [id number]_IDCSIACNNormalMarlborough Hospitalst [facility] 62-65-1680FWVFZqptxu Visit (BERNARD) SAV RAYMUNDO ([id number]) 1950 M Date Time Provider Department 11/29/23 3:00 PM TITA LANDRY During your visit today, we recorded the following information about you: Temperature Pulse Respiration Blood pressure 97.3 degrees 71/minute 14/minute 121/68 Weight Height 105.6 kg 1.829 m Tita Landry APRN.CNP 12/30/2023 9:20 PM Signed Heart, Vascular and Thoracic [place] DEPARTMENT OF THORACIC SURGERY OUTPATIENT VISIT DATE November 29, 2023 OUTPATIENT VISIT TYPE ESTABLISHED PT NAME: Sav Raymundo CLINIC NO: [id number] THORACIC SURGEON: Ronaldo Flood M.D. DATE OF SERVICE: 11/29/2023 PRINCIPAL DX: Pleural Effusion SURGICAL HX 11/20/2023: R VATS pleural biopsy, right construction equipment mechanic helper and doxycycline pleurodesis, right Pleurx catheter insertion, [...] patient underwent R VATS pleural biopsy, right construction equipment mechanic helper and doxycycline pleurodesis, right Pleurx catheter insertion, [...] (dark awilda with foam) 11/26: 450 cc (upsetter setter up than last time with foam) I drained [...] effusion s/p R VATS pleural biopsy, right construction equipment mechanic helper and doxycycline pleurodesis, right Pleurx catheter insertion, [...] call with surgical patholog (more content not included)...NormalBeth Israel Deaconess HospitalXR CHEST 2V FRONTAL/LATon 71-91-8711ZY CHEST 2V FRONTAL/LAT* * *Final Report* * [...] MD on Nov 30 2023 4:59PM EST [id number]_IDCSIACNNChelsea Memorial Hospital 16-08-5460IMRRQvqrayilf (BERNARD) SAV RAYMUNDO ([id number]) 1950 M Date Time Provider Department 11/24/23 RONALDO FLOOD During your visit today, we recorded the following information about you: Allergies As of Date: 11/24/2023 Noted Allergy Reaction TRAMADOL 12/15/2020 1 - Mental Status Change Date Reviewed: 11/23/2023 Reviewed by: Lilia Slater RN - Fully Assessed Primary Visit Diagnosis:Surgery follow-up [Z09] Order(s):XR CHEST 2V FRONTAL/LAT [[id number]] Order #: [id number] FUTURE Prescriptions as of 11/24/2023 - acetaminophen [...] 11/21/2023 Encounter Status:Closed by JACEK RODAS on 11/24/23[facility] Heart Perfusion W stress and W radionuclide Scarlett 11-12-2023* * *Final Report* * * DATE OF EXAM: Nov 12 2023 11:59AM Shahzad 0006 - [place] CARDIAC PERF STRESS/PHARM / PROCEDURE REASON: multiple diagnoses * * * * Physician Interpretation * * * * Stress Bulk Station Agent Report: [facility] DASH-2 Date of service: 11/12/2023 10:35:44 [...] later. See administered radiotracer and doses below. [facility] Date of service: 11/12/2023 10:35:44 AM [...] Final * * * NM CTAC Report: [facility] Date of service: 11/12/2023 10:35:44 AM CTAC interpreting physician: Jose Dawson MD PATIENT: Name: SAV RAYMUNDO Age: 73 years Gender: M 1. Incidental Findings from limited non-diagnostic CTAC: - Coronary calcifications visualized. large right pleural effusion better evaluated on dedicated chest imaging * * * Final * * * Stress ECG Report: [facility] DASH-2 Date of service: 11/12/2023 10:35:44 AM Ordering physician: RONALDO FLOOD sourcing specialist: Joan Almendarez Coal Handler: Solange Mosley Interpreting physician: Jose Dawson MD Patient name: SAV RAYMUNDO Age: 73 years Gender: M Height: 182.88 cm BSA: 2.27 m Weight: 101.15 kg BMI: 30.2 kg/m Indication: Encounter for pre-procedural cardiovascular examination for non-cardiac surgery Stress ECG Conclusion: Conclusion: Normal Comments: Non-specific T wave abnormality at rest and (more content not included)...DIVISION OF RADIOLOGYProvider, [facility] [place] - 11/12/2023 * * *Final Report* * * DATE OF EXAM: Nov 12 2023 11:59AM N 0006 - NM CARDIAC PERF STRESS/PHARM / PROCEDURE REASON: multiple diagnoses * * * * Physician Interpretation * * * * Stress Bulk Station Agent Report: [facility] DASH-2 Date of service: 11/12/2023 10:35:44 [...] later. See administered radiotracer and doses below. [facility] Date of service: 11/12/2023 10:35:44 AM [...] * * * Final * * * GA CTA Report: [facility] Date of service: 11/12/2023 10:35:44 AM CTAC interpreting physician: Jose Dawson MD PATIENT: Name: SAV RAYMUNDO Age: 73 years Gender: M 1. Incidental Findings from limited non-diagnostic CTAC: - Coronary calcifications visualized. large right pleural effusion better evaluated on dedicated chest imaging * * * Final * * * Stress ECG Report: [facility]- Date of service: 11/12/2023 10:35:44 AM Ordering physician: RONALDO FLOOD sourcing specialist: Joan Almendarez Coal Handler: Solange Mosley Interpreting physician: Jose Dawson MD [...] age. Peak bloo (more content not included)... [facility] CenterNM Heart Perfusion W stress and W radionuclide IVOrdered By: Ccf Provider on 73-21-7920Mezjneujr ClinicNo Panel Informationon 11-12-2023 Radiology Study observation (narrative)[facility] Medical CenterUS Chest limitedon 59-55-9670Osvyusrbk ClinicXR Chest PA and Lateralon 53-57-6029YHDEFMQAJT: See result. Sustainability Coach: ALONSO Transcribe Date/Time: Nov 12 2023 8:27A Dictated by : BLAS NELSON MD This examination was interpreted and the report reviewed and electronically signed by: BLAS NELSON MD on Nov 12 2023 8:29AM [facility] DIVISION OF RADIOLOGY* * *Final Report* * [...] within the thoracic spine. DIVISION OF RADIOLOGYProvider, [facility] [place] - 11/12/2023 * * *Final Report* * [...] the thoracic spine. IMPRESSION IMPRESSION: See result. Sustainability Coach: PSCB Transcribe Date/Time: Nov 12 2023 8:27A Dictated by : BLAS NELSON MD This examination was interpreted and the report reviewed and electronically signed by: BLAS NELSON MD on Nov 12 2023 8:29AM [facility] Chest PA and LateralOrdered By: Cc Provider on 11-12-2023 [facility] CenterDetermination of appearance of body fluidon 80-46-0239Lizajsznws (Body fld)[facility] HospitalEvaluation of color of body fluidon 64-58-1927Krgav (Body fld)Yellow.[facility] Comment on above:Colorless to Pale Yellow/StrawLon 33-57-9107PJtntectm: BC Received: 10/02/23 Status: MARITA Willstephanie Num: [id number] Spec Type: Cytology Subm Dr: Sintia Clemente DO Tissues: A PLEURAL FLUID (RIGHT PLEURAL FLUID) Procedures: HE/2, Gross/Micro L4, Cyto Prepstain, PAPSTN Age/ Patient Sex Location Account Attending Physician BreanneSav Cantu 73/M LABELL [id number] Sintia Clemente DO SPEC NUM: [id number] RECD: 10/02/23 STATUS: MARITA WILLStephanie NUM: [id number] HALLIE: 10/01/[address]: Sintia Clemente DO ENTERED: 10/02/[address]: SPEC TYPE: Cytology DEPT: [facility] ENTERED BY: [id number] RECV BY: [id number] ORDERED: HE/2, Gross/Micro L4, Cyto Prepstain, PAPSTN [...] are prepared. 1 cell blocks are prepared. (OK/nh) Specimen: [id number] Received: 10/02/23-1402 Status: MARITA Nolasco Num: [id number] Spec Type: Cytology Subm Dr: Sintia Clemente DO Tissues: A PLEURAL FLUID (RIGHT PLEURAL FLUID) Procedures: HE/2, Gross/Micro L4, Cyto Prepstain, PAPSTN Patient: Sav Raymundo [id number] (Continued) Signed (signature on file) Jaspal Olmedo MD 10/03/[address] [place] [address] Physician GroupLaboratory - Microbiology and Antimicrobial susceptibilityOrdered By: Yuli Mariscal on 19-77-1424Txqkryyitsr observation Gram stain Nom (Unsp spec)[facility] NorthManual body fluid eosinophils/100 leukocyteson 51-61-4989Zttmuwiucao/100 WBC Manual cnt (Body fld)0 %Not Estab.[facility] Hospital NorthComment on above: Performed at: - [facility] [id number] Director: Norm Alcaraz PhD, Phone: [phone] body fluid lymphocytes/100 leukocyteson 09-17-0153Qilgvqsdvry/100 WBC Manual cnt (Body fld) 39 %Not Estab.[facility] NorthNeutrophils/100 WBC Manual cnt (Body fld)on 52-60-1574Kttxgupdjoy/100 WBC (Body fld)5 %0-24[facility] NorthNo Panel InformationOrdered By: Yuli Mariscal on 07-02-3036Jmpv Fast SmearPremier Health Miami Valley Hospital NorthAFB Specimen ProcessingPremier Health Miami Valley Hospital NorthNo Panel Informationon 15-17-4579Vpag Fluid CommentTNP. [facility] NorthBody Fluid Csdrahl882 mg/dL.[facility] NorthComment on above: : BODY FLUID TYPE : [...] 2008. Ninth edition (V9.1) [employer], [facility]; [place]: December 2008.Body Fluid Lining CellTNP.[facility] NorthBody Fluid Macrophages (%)56 %Not Estab.[facility] NorthBody Fluid pHTNP.[facility] NorthComment on above:Test not performed. Test is not approved for the collectionsite indicated.This test was developed and its performance characteristicsdetermined by [facility]. It has not been cleared orapproved by the Food and Drug Administration.The reference interval(s) and other method performance specificationshave not been established for this body fluid. The test result must beintegrated into the clinical context for interpretation.Performed at: [address] [id number] Director: Yan Escamilla MD, Phone: [phone] Fluid HEC7505 /uLNot Estab.[facility] NorthBody Fluid Total Nucleated Fmntn1110 /um55-058WlgnleodxPremier Health Miami Valley Hospital NorthComment on above:Pleural Fluid, with <1000 Nucleated cells/uL has beenassociated with transudates while >1000 uL may be seenin exudates.Body Fluid Total Protein3.7 g/dL.[facility] Comment on above: : BODY FLUID TYPE [...] 2008. Ninth Edition (V9.1) [employer], [facility]; [place]: December 2008.Performed at: - [facility] [id number] Director: Norm Alcaraz PhD, Phone: [phone] Smear ResultPremier Health Miami Valley Hospital NorthMiscellaneous Test CommentSee commentPremier Health Miami Valley Hospital NorthComment on above:Specimen Source: PL - Pleural Fluid - Pleural Fl - 401.000Estimated glomerular filtration rate (GFR) non- Americanon 32-05-0428BBQ/1.73 sq M.predicted among non- blacks MDRD (S/P/Bld) [Vol rate/Area]mL/min/{1.73_m2}>=60[facility] NorthLaboratory - Chemistry and Chemistry - challengeon 09-11-2023 Creatinine [Mass/Vol]1.02 mg/dL0.70-1.30[facility] GFR/1.73 sq M.predicted MDRD (S/P/Bld) [Vol rate/Area]mL/min/{1.73_m2}>=60 [facility] NorthBody fluid differential cell countOrdered By: Sintia Clemente on 51-19-2830Xqdsvriwzobk panel (Body fld)50 %[facility] Hospital NorthComment on above:The reference interval and other method performance specifications have not been established for this body fluid. The test result must be integrated into the clinical context for interpretation.Cell Count/Diff, Fluidon 78-88-4579Rkjfnmfhuw, FluidHazyNormalThe Formerly [facility] Physician GroupComment on above:Order Comment: Body Fluid Source: Pleural Fluid Body Fluid Site: PLEURAL FLUIDResult Comment: The reference interval and other method performance specifications have not been established for this body fluid. The test result must be integrated into the clinical context for interpretation.Performed By: #### FLCCDIFF #### [place] [address] USACoportneuf medical center, FluidRedMethodist North Hospital Physician Group Comment on above:Order Comment: Body Fluid Source: Pleural Fluid Body Fluid Site: PLEURAL FLUIDResult Comment: The reference interval and other method performance specifications have not been established for this body fluid. The test result must be integrated into the clinical context for interpretation.Performed By: #### FLCCDIFF #### [place] [address] USAColor, Fluid SupernatantRedMethodist North Hospital Physician GroupComment on above:Order Comment: Body Fluid Source: Pleural Fluid Body Fluid Site: PLEURAL FLUIDResult Comment: The reference interval and other method performance specifications have not been established for this body fluid. The test result must be integrated into the clinical context for interpretation.Performed By: #### FLCCDIFF #### [place] [id number] USAEosinophils, Fluid0 /100{WBC}Normal0-3The [facility] Physician GroupComment on above:Order Comment: Body Fluid Source: Pleural Fluid Body Fluid Site: PLEURAL FLUIDResult Comment: PERFORMED BY: [place] [address] PATHOLOGIST GLASSWORKER KATHY HENDRICKSON M.D.Performed By: #### FLCCDIFF #### [address] [address] USALymphocytes, Fluid38 %NormalThe [facility] Comment on above:Order Comment: Body Fluid Source: Pleural Fluid Body Fluid Site: PLEURAL FLUIDResult Comment: The reference interval and other method performance specifications have not been established for this body fluid. The test result must be integrated into the clinical context for interpretation.Performed By: #### FLCCDIFF #### [place] [address] USAMonocytes/Macrophages, Fluid50 %NormalThe [facility] Physician GroupComment on above:Order Comment: Body Fluid Source: Pleural Fluid Body Fluid Site: PLEURAL FLUIDResult Comment: The reference interval and other method performance specifications have not been established for this body fluid. The test result must be integrated into the clinical context for interpretation.Performed By: #### FLCCDIFF #### [place] [id number] USANeutrophil, Fluid12 %NormalThe [facility] Comment on above:Order Comment: Body Fluid Source: Pleural Fluid Body Fluid Site: PLEURAL FLUIDResult Comment: The reference interval and other method performance specifications have not been established for this body fluid. The test result must be integrated into the clinical context for interpretation.Performed By: #### FLCCDIFF #### [address] [address] USARBC, Dtbns22975 /[facility] Comment on above:Order Comment: Body Fluid Source: Pleural Fluid Body Fluid Site: PLEURAL FLUIDResult Comment: The reference interval and other method performance specifications have not been established for this body fluid. The test result must be integrated into the clinical context for interpretation.Performed By: #### FLCCDIFF #### [address] [address] USATNC, Body Uoofp050 /[facility] Comment on above:Order Comment: Body Fluid Source: Pleural Fluid Body Fluid Site: PLEURAL FLUIDResult Comment: The reference interval and other method performance specifications have not been established for this body fluid. The test result must be integrated into the clinical context for interpretation.Performed By: #### FLCCDIFF #### [address] [address] USAColor of Spun Body fluidOrdered By: Sintia Clemente on 51-11-5642Wozca (Spun body fld)[facility] Medical CenterComment on above:The reference interval and other method performance specifications have not been established for this body fluid. The test result must be integrated into the clinical context for interpretation.Determination of appearance of body fluidOrdered By: Sintia Clemente on 33-81-8325Ddnthcxbon (Body fld)[facility]utheran HospitalComment on above:The reference interval and other method performance specifications have not been established for this body fluid. The test result must be integrated into the clinical context for interpretation. Evaluation of color of body fluidOrdered By: Sintia Clemente on 99-08-0782Trsmo (Body fld)[facility] Medical CenterComment on above:The reference interval and other method performance specifications have not been established for this body fluid. The test result must be integrated into the clinical context for interpretation.Xander 62-10-7749SBtttptir: [id number] Received: 09/06/23 Status: MARITA Nolasco Num: [id number] Spec Type: Cytology Subm Dr: Sintia Clemente DO Tissues: A PLEURAL FLUID (PLEUR) Procedures: HE/2, Gross/Micro L4, AE1-AE3, CALRETININ, CK20, CK 7, TTF1, Cyto Prepstain, NKX3.1, MOC31, SOX-10, PAPSTN Age/ Patient Sex Location Account Attending Physician Sav Raymundo 73/M LABELL [id number] Sintia Clemente DO SPEC NUM: [id number] RECD: 09/06/23 STATUS: MARITA NOLASCO NUM: [id number] HALLIE: 09/04/231227 SUBM DR: Sintia Clemente DO ENTERED: 09/06/[address] [facility] [address]: SPEC TYPE: Cytology DEPT: [facility] ENTERED BY: [id number] RECV BY: [id number] ORDERED: HE/2, Gross/Micro L4, AE1-AE3, CALRETININ, CK20, [...] [id number] Received: 09/06/23 Status: MARITA Nolasco Num: [id number] Spec Type: Cytology Subm Dr: Sintia Clemente DO Tissues: A PLEURAL FLUID (PLEUR) Procedures: HE/2, Gross/Micro L4, AE1-AE3, CALRETININ, CK20, CK 7, TTF1, Cyto Prepstain, NKX3.1, MOC31, SOX-10, PAPSTN Patient: Willie Raymundoveronica Cantu [id number] (Continued) Signed (signature on file) Jaspal Olmedo MD 09/12/[address] [place] [address] Physician GroupLaboratory - Chemistry and Chemistry - challengeon 63-68-5706Hguukxkkqax [Mass/Vol]59 mg/dL<=200[facility] NorthLaboratory - Microbiology and Antimicrobial susceptibilityOrdered By: Yuli Mariscal on 01-42-2051Ghmzmdshquy observation Gram stain Nom (Unsp spec)[facility] body fluid eosinophils/100 leukocytesOrdered By: Sintia Clemente on 35-21-4868Eticwdplclk/100 WBC Manual cnt (Body fld)0 /100{WBC}0-3FKettering Health [facility] body fluid erythrocytes count (number/volume)Ordered By: Sintia Clemente on 25-86-3428KPN Manual cnt (Body fld) [#/Vol]56876 /uLPremier Health Miami Valley Hospital NorthComment on above:The reference interval and other method performance specifications have not been established for this body fluid. The test result must be integrated into the clinical context for interpretation.Manual body fluid lymphocytes/100 leukocytesOrdered By: Sintia Clemente on 09-04-2023 Lymphocytes/100 WBC Manual cnt (Body fld)38 %[facility] Comment on above:The reference interval and other method performance specifications have not been established for this body fluid. The test result must be integrated into the clinical context for interpretation.Neutrophils/100 WBC Manual cnt (Body fld)Ordered By: Sintia Clemente on 06-96-6296Ejcrbwryzco/100 WBC (Body fld)12 %[facility] NorthComment on above:The reference interval and other method performance specifications have not been established for this body fluid. The test result must be integrated into the clinical context for interpretation.No Panel InformationOrdered By: Yuli Mariscal on 00-03-4457Fbyr Fast SmearPremier Health Miami Valley Hospital NorthAFB Specimen ProcessingPremier Health Miami Valley Hospital NorthNo Panel Informationon 56-47-9678Bxev Fluid Ahegklj78 U/L.[facility] NorthComment on above: : BODY FLUID TYPE : AMYLASE : : : : : Lymph : 50 - 83 : : : : : Peritoneal : : : Fluid : 88 - 109 : : : : : Saliva : : : (Mixed Glands) : [phone] [phone] : : : : Adeel Das V. Reference Intervals for Adults and Children 2007. Ninth Edition (V9.1) [employer], [facility]; [place]: December 2008.Performed at: [address] [id number] Director: Norm Leemark PhD, Phone: [phone] Fluid Fqdepry961 mg/dL.[facility] Comment on above: : BODY FLUID TYPE [...] 2007. Ninth edition (V9.1) [employer], [facility]; [place]: December 2008.Body Fluid pH8.2Not Estab.[facility] NorthComment on above:This test was developed and its performance characteristicsdetermined by [facility]. It has not been cleared orapproved by the Food and Drug Administration.The reference interval(s) and other method performance specificationshave not been established for this body fluid. The test result must beintegrated into the clinical context for interpretation.Performed at: [facility] [place], [place] [id number] Director: Yan Escamilla MD, Phone: [phone] Fluid Total Protein3.7 g/dL.[facility] NorthComment on above: : BODY FLUID TYPE : [...] - 0.9 : : : : Altagracia W, Adeel V. Reference Intervals for Adults and Children 2007. Ninth Edition (V9.1) [employer], [facility]; [place]: December 2008.Body Fluid Ookvipirisjbn42 mg/dLNot EstabParkview Health Montpelier HospitalComment on above:The reference interval(s) and other method performance specificationshave not been established for this body fluid. The test result must beintegrated into the clinical context for interpretation.Performed at: [facility] [id number] Director: Norm Alcaraz PhD, Phone: [phone] Smear [facility] North Health CenterMiscellaneous Test CommentSee comment [facility] NorthComment on above:Specimen Source: PL - Pleural Fluid - Pleural Fl - 401.000No Panel InformationOrdered By: Sintia Clemente on 46-75-2579Irud Fluid Total Nucleated Tjibp977 /[facility] HospitalComcar[facility] center on above:The reference interval and other method performance specifications have not been established for this body fluid. The test result must be integrated into the clinical context for interpretation.Serum or plasma free cefuroxime measurement (mass/volume)on 66-01-9000Mirarhjynb free [Mass/Vol] TNP.[facility] NorthComment on above:Test not performed. No serum gel received.Contacted Shelby at your facility 09/06/2023Test not performed. No serum gel received.Contacted Shreya at your facility 09/06/2023--- 09/06/23 1311 ---GREY Direct previously reported as: Test not performedTest not performed. No serum gel received.Contacted Shelby at your facility 09/06/2023Serum or plasma rheumatoid factor measurement (units/volume)on 20-86-9303Gekwbdgiwe factor Qn TNP [IU]/mL.[facility] NorthComment on above:Test not performed. No serum gel received.Contacted Shelby at your facility 09/06/2023Test not performed. No serum gel received.Contacted Shreya at your facility 09/06/2023--- 09/06/23 1311 ---RF previously reported as: Test not performed IU/mLTest not performed. No serum gel received.Contacted Shelbyat your facility 09/06/2023denosine monophosphate.cyclic [Moles/Vol]on 53-36-4947Hodzxl Citrullinated Peptid IgG/IgA1 units0-19[facility] NorthComment on above:Negative <20 Weak positive 20 - 39 Moderate positive 40 - 59 Strong positive >59Performed at:[facility] [address] [id number] Director: Norm Alcaraz PhD, Phone: [phone] <20 Weak positive 20 - 39 Moderate positive 40 - 59 Strong positive >59Performed at:[facility] [address] [id number] Director: Norm Alcaraz PhD, Phone: [phone] perinuclear antineutrophil cytoplasmic antibodies measurementon 52-29-6027Tmeiabqcrs cytoplasmic Ab.perinuclear.atypical IF (S) [Titer]<1:20 titerNeg:<1:20[facility] NorthComment on above:The atypical pANCA pattern has been observed in asignificant percentage of patients with ulcerativecolitis,primary sclerosing cholangitis and autoimmune hepatitis.Performed at: [facility] [id number] Director: Yan Escamilla MD, Phone: [phone] at: [facility] [address] [id number] Director: Norm Alcaraz PhD, Phone: [phone] capsulatum antibody detection by complement fixationon 08-28-2023H. capsulatum Ab CF Ql (S)NegativeNeg:<1:2FSelect Medical Specialty Hospital - Cleveland-FairhillComment on above: Performed at: [facility] [id number] Director: Yan Escamilla MD, Phone: [phone] Ab [Units/volume] in Serum by Immunoassayon 49-98-3792Uypxrrwscvjsawv Ab IA Qn (S) <0.2 units0.0-0.9[facility] NorthNo Panel Informationon 06-71-9446Tqcwnnixunlpi TestCOMMENT.[facility] NorthComment on above:Test Ordered: [id number] [place]ack[place] A IgG/IgM AntibodyCoxsackie A7 IgG 1:100 [...] Negative titer BN Reference Range: Neg:<1:10Performed at: [facility] [id number] Director: Yan Escamilla MD, Phone: [phone] at: - [facility] [address] [id number] Director: Norm Alcaraz PhD, Phone: [phone] ANCA (p-ANCA) Antibody<1:20 titerNeg:<1:20[facility] NorthComment on above: The presence of positive fluorescence exhibiting P-ANCA orC-ANCA patterns alone is not specific forthe diagnosis ofWegener's Granulomatosis (WG) or microscopic polyangiitis.Decisions about treatmentshould not be based solely onANCA IFA results. The International ANCA Group Consensusrecommends follow up testing of positive sera with both WY-3 and MPO-ANCA enzyme immunoassays. As many as 5% serumsamples are positive only by EIA. Ref. AM J Clin Slkirn6235;111:507-513. Histoplasma Galactomannan AntigenNegative<0.5 ng/mLPremier Health Miami Valley Hospital NorthComment on above:This test was developed and its performance characteristicsdetermined by [employer]. It has not been cleared orapproved by the Food and Drug Administration.Performed at: [facility] [address] [facility], [place] [id number] Director: Janine Goodman MD, Phone: [phone] 3 Ab [Units/volume] in Serum by Immunoassayon 08-28-2023 Proteinase 3 Ab IA Qn (S)<0.2 units0.0-0.9Clermont County HospitalCL- 70 extractable nuclear Ab IA Qn (S)on 96-39-4534Rjp-70 (Scleroderma) Antibody <0.2 AI0.0-0.9[facility] NorthComment on above:Performed at: [facility] WorldwideAtlantic Rehabilitation InstituteUiolac[address] [place] [id number] Director: Norm Alcaraz PhD, Phone: [phone] at: [facility] [employer] [id number] Director: Norm Alcaraz PhD, Phone: [phone] Serum angiotensin converting enzyme (NANDO) measurementon 21-67-1313Tdcqhfzyife converting enzyme [Catalytic activity/Vol]34 U/O11-71XzzedyvnxPremier Health Miami Valley Hospital NorthComment on above:Performed at: [facility] [employer] [id number] Director: Norm Alcaraz PhD, Phone: [phone] classic neutrophil cytoplasmic antibody titer by immunofluorescenceon 08-28-2023 Neutrophil cytoplasmic Ab.classic IF (S) [Titer]<1:20 titerNeg:<1:20Clermont County Hospitalerum or plasma rheumatoid factor measurement (units/volume)on 58-34-7323Iwqkqsxejr factor Qn[IU]/mL<14.0[facility] NorthComment on above:Performed at: [facility] [id number] Director: Norm Alcaraz PhD, Phone: [phone] Laboratory - Chemistry and Chemistry - challengeon 20-40-1111Udxmtwlqr (Vitamin B12) [Mass/Vol]3286.0 pg/mL193.0-986.0[facility] NorthTSH Qn 1.287 m[IU]/L0.358-3.740[facility] NorthLaboratory - Hematology and Cell countson 25-92-5645ZII (Bld) [Velocity]126 mm/h<=20[facility] NorthNo Panel Informationon 60-98-6315N-Reactive Protein, Quantitative 4.28 mg/dL<=0.50[facility] NorthFolate21.60 ng/mL8.60-58.90 [facility] Hospitalerum or plasma free cefuroxime measurement (mass/volume)on 41-38-0648Yfjoohnwvx free [Mass/Vol]NegativeNegativePremier Health Miami Valley Hospital NorthComment on above:Performed at: [facility] [id number] Director: Norm Alcaraz PhD, Phone: [phone] Auto (Bld) [#/Vol]on 72-75-3416Lqcujpsif (Bld) [#/Vol]0.0 10 3/uL0.0-0.1FSelect Medical Specialty Hospital - Cleveland-FairhillBasophils/100 WBC Auto (Bld)on 76-59-3117Xenyxwgwj/100 WBC (Bld)0.2 %0.2-2.0[facility] Eosinophils/100 WBC Auto (Bld)on 17-49-4241Hceviiwvove/100 WBC (Bld)0.0 %0.9-7.0 [facility] NorthErythrocyte distribution width Auto (RBC) [Ratio]on 25-43-6568Aaiahpmbqvf distribution width (RBC) [Ratio]12.5 %11.0-15.0 [facility] NorthEstimated glomerular filtration rate (GFR) non- Americanon 38-21-4337KYI/1.73 sq M.predicted among non-blacks MDRD (S/P/Bld) [Vol rate/Area]mL/min/{1.73_m2}>=60[facility] Globulin Calc (S) [Mass/Vol]on 28-42-4423Vxpmsfka (S) [Mass/Vol]4.7 g/dL [facility] NorthHematocrit Auto (Bld) [Volume fraction]on 54-90-7300Tdyjpasavo (Bld) [Volume fraction]34.7 %42.0-54.0[facility] NorthHemoglobin [Mass/volume] in Bloodon 11-89-1130Nkuufmodod (Bld) [Mass/Vol]11.2 g/dL14.0-18.0[facility] NorthLaboratory - Chemistry and Chemistry - challengeon 67-26-6328Gdcmlqa [Mass/Vol]3.2 g/dL 3.4-5.0[facility] NorthALP [Catalytic activity/Vol]66 U/L46-116 [facility] NorthALT [Catalytic activity/Vol]33 U/L16-63 [facility] NorthAST [Catalytic activity/Vol]24 U/L15-37 [facility] NorthBilirubin [Mass/Vol]0.6 mg/dL0.2-1.0[facility] NorthCalcium [Mass/Vol]8.9 mg/dL8.5-10.1FSelect Medical Specialty Hospital - Cleveland-FairhillChloride [Moles/Vol]101 mmol/Y49-031VrbbttasfPremier Health Miami Valley Hospital NorthCO2 [Moles/Vol]27.4 mmol/L21.0-32.0[facility] Creatinine [Mass/Vol]1.06 mg/dL0.70-1.30[facility] GFR/1.73 sq M.predicted MDRD (S/P/Bld) [Vol rate/Area]mL/min/{1.73_m2}>=60 [facility] NorthGlucose [Mass/Vol]115 mg/wR76-064UdbjzaebaPremier Health Miami Valley Hospital NorthNatriuretic peptide B (Bld) [Mass/Vol]397.0 pg/mL<=900.0 [facility] NorthPotassium [Moles/Vol]3.8 mmol/L3.5-5.1FSelect Medical Specialty Hospital - Cleveland-FairhillProtein [Mass/Vol]7.9 g/dL6.4-8.2FParma Community General Hospitalodium [Moles/Vol]138 mmol/G440-056KeswnpuuwPremier Health Miami Valley Hospital NorthUrea nitrogen [Mass/Vol]15.0 mg/dL7.0-18.0[facility] NorthUrea nitrogen/Creatinine [Mass ratio]14.2 mg/mgPremier Health Miami [facility] Hospital NorthLaboratory - Hematology and Cell countson 80-96-4177NMZ (Bld) [Velocity] mm/h<=20[facility] NorthImmature granulocytes/100 WBC (Bld)0.4 %0.0-0.5FSelect Medical Specialty Hospital - Cleveland-FairhillLaboratory - Microbiology and Antimicrobial susceptibilityon 29-23-3742VOQZ-CoV-2 (COVID-19) RNA BRYN+probe Ql (Unsp spec)NegativeNEGATIVEPremier Health Miami Valley Hospital NorthComment on above: This test has not been [...] nucleated erythrocytes in Blood by Automated counon 02-24-4129RTE corrected for nucl RBC Auto (Bld) [#/Vol]9.9 10 3/uL4.0-11.0[facility] NorthLymphocytes Auto (Bld) [#/Vol]on 78-02-8464Qhtfwmsckie (Bld) [#/Vol]0.8 10 3/uL1.2-3.8[facility] NorthLymphocytes/100 WBC Auto (Bld)on 72-69-8206Vbtsiyimfxu/100 WBC (Bld)8.0 %20.5-60.0[facility] CenterH Auto (RBC) [Entitic mass]on 28-94-5643JRI (RBC) [Entitic mass]32.3 pg 25.9-34.0[facility] NorthMCHC Auto (RBC) [Mass/Vol]on 93-06-4062ZGRT (RBC) [Mass/Vol]32.3 g/dL29.9-35.2FSelect Medical Specialty Hospital - Cleveland-FairhillMCV Auto (RBC) [Entitic vol]on 40-27-2800PNF (RBC) [Entitic vol]100.0 fL 80.0-94.0[facility] NorthMonocytes Auto (Bld) [#/Vol]on 03-02-0622Ytxpkiaao (Bld) [#/Vol]1.0 10 3/uL0.3-0.8[facility] NorthMonocytes/100 WBC Auto (Bld)on 01-54-8303Lvcsjhdhq/100 WBC (Bld)9.9 % 1.7-12.0[facility] NorthNeutrophils Auto (Bld) [#/Vol]on 79-22-3206Tmrswrgepvg (Bld) [#/Vol]8.1 10 3/uL1.4-6.5FSelect Medical Specialty Hospital - Cleveland-FairhillNeutrophils/100 WBC Auto (Bld)on 95-26-4557Kmzxynnixme/100 WBC (Bld)81.5 % 43.0-75.0[facility] NorthNo Panel Informationon 89-00-0318D- Reactive Protein, Quantitative6.36 mg/dL<=0.50[facility] Eosinophils # (Auto)0.0 10 3/uL0.0-0.7FSelect Medical Specialty Hospital - Cleveland-FairhillImmature Granulocyte # (Auto)0.04 10 3/uL0.00-0.03[facility] Troponin I High Michlkuwlma27.9 pg/mL4.0-76.1FSelect Medical Specialty Hospital - [facility]-Fairhill Comment on above:CUT-OFF POINTS HAVE BEEN ESTABLISHED [...] DIAGNOSTIC AND CLINICAL INFORMATION.Bedside Influenza Type A AntigenNegativePremier Health Miami Valley Hospital NorthComment on above:Negative for Flu A protein antigen. Infection due to Flu Acannot be ruled out. Flu A antigen in thesample may bebelow the detection limit of the test.Bedside Influenza Type B AntigenNegativePremier Health Miami Valley Hospital NorthComment on above:Negative for Flu B protein antigen. Infection due to Flu Bcannot be ruled out. Flu B antigen in thesample may bebelow the detection limit of the test.Platelet mean volume Auto (Bld) [Entitic vol]on 56-47-8839Tkkhgrzk mean volume (Bld) [Entitic vol]9.5 fL9.5-13.5FSelect Medical Specialty Hospital - Cleveland-FairhillPlatelets Auto (Bld) [#/Vol]on 07-38-4280Ibymyxwqn (Bld) [#/Vol]288 10 3/aE619-142IgjlvyqtdPremier Health Miami Valley Hospital NorthRBC Auto (Bld) [#/Vol]on 50-51-1688LHA (Bld) [#/Vol]3.47 10 6/uL4.70-6.10 [facility] Hospitalerum or plasma albumin/globulin mass ratioon 98-92-8793Bahitza/Globulin [Mass ratio]0.7 {ratio}[facility] County Hospitalerum or plasma anion gap determinationon 20-11-1931Bkswk gap [Moles/Vol] 13.4 mmol/LFSelect Medical Specialty Hospital - Cleveland-FairhillXR KNEE LEFT 4+ VIEWS (SPECIFY VIEWS IN COMMENTS)on 83-20-2155IS KNEE LEFT 4+ VIEWS (SPECIFY VIEWS IN COMMENTS)X- rays of the left knee from [facility] taken today are reviewed. My personal [...] HUFF on SatJan 16, 2023 10:52:01 AM [facility] on above:Order Comment: Injury/Trauma or Illness?:Illness/Other How long have you had these symptoms (acute/chronic)?:Unknown Reason for exam?:U History of cancer?:n/a Surgeries, chemotherapy, or radiation?:n/a Type of Exam?:Unknown Additional signs and symptoms?:UXR ANKLE LEFT 3+ VIEWS (STANDARD)on 55-40-9875VE ANKLE LEFT 3+ VIEWS (STANDARD)Weightbearing radiographs of [...] EDOUARD on SatAug 28, 2022 1:49:21 PM [facility] on above:Order Comment: Injury/Trauma or Illness?:Illness/Other How long have you had these symptoms (acute/chronic)?:Unknown Reason for exam?:n/a History of cancer?:n/a Surgeries, chemotherapy, or radiation?:n/a Type of Exam?:Unknown Additional signs and symptoms?:n/aXR ANKLE RIGHT 3+ VIEWS (STANDARD)on 71-19-3956HL ANKLE RIGHT 3+ VIEWS (STANDARD)Weightbearing radiographs of [...] EDOUARD on SatAug 28, 2022 1:50:20 PM [facility] AmbulatoryComment on above:Order Comment: Injury/Trauma or Illness?:Illness/Other How long have you had these symptoms (acute/chronic)?:Unknown Reason for exam?:n/a History of cancer?:n/a Surgeries, chemotherapy, or radiation?:n/a Type of Exam?:Unknown Additional signs and symptoms?:n/aXR FOOT LEFT 2 VIEWSon 01-26-5270OR FOOT LEFT 2 VIEWSWeightbearing radiographs of the [...] EDOUARD on SatAug 28, 2022 1:49:28 PM [facility] AmbulatoryComment on above:Order Comment: Injury/Trauma or Illness?:Illness/Other How long have you had these symptoms (acute/chronic)?:Unknown Reason for exam?:n/a History of cancer?:n/a Surgeries, chemotherapy, or radiation?:n/a Type of Exam?:Unknown Additional signs and symptoms?:n/aXR FOOT RIGHT 2 VIEWSon 12-76-9720KC FOOT RIGHT 2 VIEWSWeightbearing radiographs of the [...] EDOUARD on SatAug 28, 2022 1:50:[address] [facility] HospitalComment on above:Order Comment: Injury/Trauma or Illness?:Illness/Other How long have you had these symptoms (acute/chronic)?:Unknown Reason for exam?:n/a History of cancer?:n/a Surgeries, chemotherapy, or radiation?:n/a Type of Exam?:Unknown Additional signs and symptoms?:n/aCBC AUTO DIFFon 29-19-3934NUCS #0.1 103/ul Normal0.0-0.1OhiohealthComment on above:Performed By: #### DATCBC #### [facility] [address] [address] [address] Joni SandersBasophils/100 WBC (Bld)1.0 %Normal0.2-2.0[facility] Comment on above:Performed By: #### DATCBC #### [facility] [address] [address] [address] Joni Yi #0.1 103/ulNormal0.0-0.7The [facility] Ritt[facility] Medical CenterComment on above: Performed By: #### DATCBC #### [facility] [address] [address] [address] Joni Davilaosinophils/100 WBC (Bld)2.0 %Normal0.9-7.0[facility] Comment on above:Performed By: #### DATCBC #### [facility] [address] [address] [address] Joni Davilarythrocyte distribution width (RBC) [Ratio]12.4 %Exqzdx94.0-15.0 OhiohealthComment on above:Performed By: #### DATCBC #### [facility] [address] [address] [address] Joni SandersHematocrit (Bld) [Volume fraction]43.7 %Jcplzs58.0-54.0The [facility] Ritt[facility] Medical CenterComment on above:Performed By: #### DATCBC #### [facility] [address] [place] [address] Dr. Joni SandersHemoglobin (Bld) [Mass/Vol]14.6 g/pWHbpado97.0-18.0The Holmesville HospitalComment on above:Performed By: #### DATCBC #### [facility] [address] [place] [address] Dr. Joni Cobb #0.02 10e3/ulNormal0.00-0.03The [facility]itt[facility] Medical CenterComment on above:Performed By: #### DATCBC #### [facility] [address] [place] [address] Dr. Joni Cobb %0.3 %Normal0.0-0.5The [facility] Ritt[facility] Medical CenterComment on above: Performed By: #### DATCBC #### [facility] [address] [place] [address] Dr. Joni Harp #2.0 103/ulNormal1.2-3.8The [facility]itt[facility] Medical CenterComment on above:Performed By: #### DATCBC #### [facility] [address] [place] [address] Dr. Joni Tamphocytes/100 WBC (Bld)33.3 %Rwiyiz44.5-60.0The [facility]itt[facility] Medical CenterComment on above:Performed By: #### DATCBC #### [facility] [address] [place] [address] Dr. Joni Pedraza (RBC) [Entitic mass]32.6 ilAnfeix79.9-34.0The [facility]itt[facility] Medical CenterComment on above:Performed By: #### DATCBC #### [facility] [address] [place] [address] Dr. Joni William (RBC) [Mass/Vol]33.4 g/oTEhoood55.9-35.2The [facility] HospitalComment on above:Performed By: #### DATCBC #### [facility] [address] [address] [address] Joni WilliamV (RBC) [Entitic vol]97.5 fLCritically high80.0-94.0The [facility] CenterComment on above:Performed By: #### DATCBC #### [facility] [address] [place] [address] Dr. Joni Esposito #0.6 103/ulNormal0.3-0.8The [facility] CenterComment on above:Performed By: #### DATCBC #### [facility] [address] [place] [address] Dr. Joni Thorpeocytes/100 WBC (Bld)9.8 %Normal1.7-12.0The [facility] on above:Performed By: #### DATCBC #### [facility] [address] [place] [address] Dr. Joni Price #3.2 103/ulNormal1.4-6.5The [facility] Medical CenterComment on above:Performed By: #### DATCBC #### [facility] [address] [place] [address] Dr. Joni Handyutrophils/100 WBC (Bld)53.6 %Bgchcf46.0-75.0The [facility] Medical CenterComment on above:Performed By: #### DATCBC #### [facility] [address] [place] [address] Dr. Joni Walshlet mean volume (Bld) [Entitic vol]9.9 fLNormal9.5-13.5The [facility] Medical CenterComment on above:Performed By: #### DATCBC #### [facility] [address] [place] [address] Dr. Joni SandersPLT239 103/kpHvvzwz810-039Pze [facility] CenterComment on above: Performed By: #### DATCBC #### [facility] [address] [place] [address] Dr. Joni SandersRBC4.48 106/ulCritically low4.70-6.10The [facility] Medical CenterComment on above:Performed By: #### DATCBC #### [facility] [address] [address] [address] Joni SandersWBC5.9 103/ulNormal4.0-11.0The [facility] Medical CenterComment on above: Performed By: #### DATCBC #### [facility] [address] [address] [address] Joni Mills- BMP WITH LIPIDon 32-03-5857Ufvtk gap [Moles/Vol]12.7 mmol/L NormalThe [facility] Medical CenterComment on above:Performed By: #### DATBMP #### [facility] [address] [place] [address] Dr. Joni SandersCalcium [Mass/Vol]9.0 mg/dLNormal8.5-10.1The [facility] Comment on above:Performed By: #### DATBMP #### [facility] [address] [place] [address] Dr. Joni SandersChloride [Moles/Vol]104 mmol/KWgvxgn62-107Cmb [facility] Comment on above:Performed By: #### DATBMP #### [facility] [address] [place] [address] Dr. Joni SandersCholesterol [Mass/Vol]188 mg/dLNormal<=200The [facility] Comment on above:Performed By: #### DATBMP #### [facility] [address] [place] [address] Dr. Joni SandersCholesterol in HDL [Mass/Vol]45 mg/pGInatre26-17Zzu [facility] CenterComment on above:Performed By: #### DATBMP #### [facility] [address] [place] [address] Dr. Joni SandersCholesterol in LDL [Mass/Vol]102.2 mg/dLNormalThe [facility] CenterComment on above:Performed By: #### DATBMP #### [facility] [address] [place] [address] Dr. Joni SandersCO2 [Moles/Vol]27.7 mmol/ZHwyife26.0-32.0The [facility] Comment on above:Performed By: #### DATBMP #### [facility] [address] [address] [address] Joni SandersCreatinine [Mass/Vol]1.00 mg/dLNormal0.70-1.30The [facility] CenterComment on above:Performed By: #### DATBMP #### [facility] [address] [address] [address] Quinones ChangEGFR-AF [place]>60Normal>=60The [facility] CenterComment on above:Performed By: #### DATBMP #### [facility] [address] [place] [address] Dr. Joni DavilaGFR-NON AF [place]>60Normal>=60The [facility] CenterComment on above:Performed By: #### DATBMP #### [facility] [address] [address] [address] Joni SandersGlucose [Mass/Vol]107 mg/dLCritically xpnt06-834Lhj [facility] CenterComment on above:Performed By: #### DATBMP #### [facility] [address] [place] [address] Dr. Join SandersHDL NORMAL> or = 60 mg/dl - LOW CARDIOVASCULAR RISK <40 mg/dl - HIGH CARDIOVASCULAR RISKUniversity Hospitals Cleveland Medical CenterComment on above:Performed By: #### DATBMP #### [facility] [address] [place] [address] Dr. Joni SandersLDL CALC NORMALSEE BELOWUniversity Hospitals Cleveland Medical CenterComment on above:Result Comment: <100 mg/dl OPTIMAL 100 - 129 mg/dl NEAR OR ABOVE OPTIMAL 130 - 159 mg/dl BORDERLINE HIGH 160 - 189 mg/dl HIGH >190 mg/dl VERY HIGH Performed By: #### DATBMP #### [facility] [address] [place] [address] Dr. Joni SandersPotassium [Moles/Vol]4.4 mmol/LNormal3.5-5.1The [facility] Comment on above:Performed By: #### DATBMP #### [facility] [address] [address] [address] Joni SandersSodium [Moles/Vol]140 mmol/ZDkxquo942-408Zki [facility] Comment on above:Performed By: #### DATBMP #### [facility] [address] [address] [address] Joni SandersTriglyceride [Mass/Vol]204 mg/dLCritically high<=150The [facility] CenterComment on above:Performed By: #### DATBMP #### [facility] [address] [address] [address] Joni SandersUrea nitrogen [Mass/Vol]22.0 mg/dLCritically high7.0-18.0The [facility] CenterComment on above:Performed By: #### DATBMP #### [facility] [address] [address] [address] Joni Pringle nitrogen/Creatinine [Mass ratio]22.0 mg/mgNoAultman Alliance Community HospitalComment on above:Performed By: #### DATBMP #### [facility] [address] [address] [address] Join SandersVLDL CALC40.8 mg/dLNoAultman Alliance Community HospitalComment on above: Performed By: #### DATBMP #### [facility] [address] [address] [address] Joni Sanders Vital Signs Date TimeVital SignValuePerforming DulqonkwtIxjjrshi57-42-9407 16:36-0400Body juiatj694.9 cmSteven [facility] Centerher DPM Work Phone: [facility] HospitalCvgkdretwo10-38-6920 16:36-0400Body mass index (BMI) [Ratio]25.5 kg/g1Nxlrxy Rusher DPM Work Phone: [phone] HospitalYrctyqfxpu18-45-6398 16:36-0400Body xqevdv02.28 kgStevLos Alamos Medical Centerher DPM Work Phone: [phone] [place], [place] [address]Mzhnsxmqjp29-29-6914 09:42-0400Body hamhyj858.88 cmBenjamin Ball DO Work Phone: [phone] [place], [place] 2274710-24-2025 09:42-0400 Body mass index (BMI) [Ratio]29.9 kg/a1Vjdwudbm Ball DO Work Phone: [phone] [place], [place] 2274710-24-2025 09:42-0400 Body vtgurg86.96 kgBenjamin Ball DO Work Phone: [phone] [place], [place] 2274710-24-2025 09:42-0400 Diastolic blood tmdmayte54 mm[Hg]Yuli Ball DO Work Phone: [phone] [place], [place] 2274710-24-2025 09:42-0400 Heart kbmx965 /minBenjamin Ball DO Work Phone: [phone] [place], [place] 2274710-24-2025 09:42-0400 Respiratory rate12 /minBenjamin Ball DO Work Phone: [phone] [place], [place] 2274710-24-2025 09:42-0400 Systolic blood mm[Hg]Yuli Ball DO Work Phone: [phone] [place], [place] 2274710-09-2025 11:17-0400 Body yexojm443.9 cmSteven Rusher DPM Work Phone: [phone] [place], [place] 4924610-09-2025 11:17-0400Body mass index (BMI) [Ratio]25.58 kg/q8Zoozbm Rusher DPM Work Phone: [phone] [place], [place] 4924610-09-2025 11:17-0400Body vsuirt97.55 kgSteven Rusher DPM Work Phone: [phone] [place], [place] 4924610-01-2025 10:20-0400Body syphze648.9 cmSteven Rusher DPM Work Phone: [phone] [place], [place] 4924610-01-2025 10:20-0400Body mass index (BMI) [Ratio]25.58 kg/z0Gxzgzx Rusher DPM Work Phone: [phone] [place], [place] 4924610-01-2025 10:20-0400Body klezad13.55 kgSteven Rusher DPM Work Phone: [phone] [place], [place] [address]Mdbiwvnezx66-93-6562 08:48-0400Body tdvbxa039.9 cmSteven Rusher DPM Work Phone: [phone] [place], [place] [address]Jtatrrsqwo56-25-7545 08:48-0400Body mass index (BMI) [Ratio]25.58 kg/r9Klsytr Rusher DPM Work Phone: [phone] [place], [place] [address]Xsbkyqntqu37-50-9260 08:48-0400Body yxjaub82.55 kgSteven Rusher DPM Work Phone: [phone]09-11-2025 10:02-0400Body .9 cmZabrina Suarez MD Work Phone: X[facility] CenterWdoubn24-95-4545 10:02-0400Body mass index (BMI) [Ratio]26.01 kg/k5YxdohkZabrina Suarez MD Work Phone: LUniversity [facility] Medical CenterDlaean52-88-7331 10:02-0400Body gficpj23 kg Zabrina Suarez MD Work Phone: YUniversity [facility] CenterTiimrg82-31-0030 10:02-0400Diastolic blood ttavvjch67 mm[Hg]Zabrina Suarez MD Work Phone: LUniversity [facility] Medical CenterQfxcws47-01-9224 10:02-0400Heart rate91 /min Zabrina Suarez MD Work Phone: SUniversity [facility] Medical CenterBpgrak94-15-7798 10:02-0400Systolic blood emfnzfkq480 mm[Hg]Zabrina Suarez MD Work Phone: GUniversity [facility] Medical CenterMvsoca75-21-0403 13:02-0400Body zwgiva241.9 cmVjuan francisco Hopper MD Work Phone: c[facility] CenterMxtnbn12-15-1506 13:02-0400Body mass index (BMI) [Ratio]25.09 kg/s8QmdylogsloJose Antonio Hopper MD Work Phone: c[facility] CenterEnodfk17-09-8181 13:02-0400Body temperature 98.6 [degF]Jose Antonio Hopper MD Work Phone: [address] [address]-12-2025 13:02-0400Body rdnhso24.92 kgJose Antonio Hopper MD Work Phone: [address] [address]-12-2025 13:02-0400Diastolic blood bxipoaca95 mm[Hg]Jose Antonio Hopper MD Work Phone: [address] [address]-12-2025 13:02-0400Heart rate86 /min Jose Antonio Hopper MD Work Phone: [address] [address]-12-2025 13:02-0400Respiratory rate 17 /minJose Antonio Hopper MD Work Phone: c[facility] CenterWmyppq50-92-8360 13:02-4885OuZ3% (BldA) [Mass fraction]96 %Jose Antonio Hopper MD Work Phone: c[facility] CenterRripos68-81-4341 13:02-0400Systolic blood oybzkaem449 mm[Hg]Jose Antonio Hopper MD Work Phone: c[facility] CenterZpsmkr88-21-1956 09:04-0400Body mass index (BMI) [Ratio]25.35 kg/x8NdzarTriston Riggs MD Work Phone: [facility]07-28-2025 09:04-0400Body temperature 98.01 [degF]Triston Riggs MD Work Phone: [address] [place] [address]-28-2025 09:04-0400Body ryrlor88.8 kgTriston Riggs MD Work Phone: [place] [address]-28-2025 09:04-0400Diastolic blood vqsmpwyb97 mm[Hg]Triston Riggs MD Work Phone: [facility]07-28-2025 09:04-0400Heart rate85 /min Triston Riggs MD Work Phone: [facility]07-28-2025 09:04-0400Respiratory rate 16 /minTriston Riggs MD Work Phone: [facility]07-28-2025 09:04-8511CeB8% (BldA) [Mass fraction]86 %Triston Riggs MD Work Phone: [facility]07-28-2025 09:04-0400Systolic blood cmcdfylz173 mm[Hg]Triston Riggs MD Work Phone: [facility]06-09-2025 22:15-0400Body temperature 97.2 [degF]Triston Riggs MD Work Phone: [facility]06-09-2025 22:15-0400Diastolic blood iomulhdi99 mm[Hg]Triston Riggs MD Work Phone: [facility]06-09-2025 22:15-0400Heart rate88 /min Triston Riggs MD Work Phone: [facility]06-09-2025 22:15-0400Respiratory rate 16 /minTriston Riggs MD Work Phone: [facility]06-09-2025 22:15-1850DiP5% (BldA) [Mass fraction]98 %Triston Riggs MD Work Phone: [facility]06-09-2025 22:15-0400Systolic blood ssxecioj948 mm[Hg]Triston Riggs MD Work Phone: [facility]06-06-2025 09:04-0400Body .9 cmNageneva Mendiola MD Work Phone: [facility]06-06-2025 09:04-0400Body mass index (BMI) [Ratio]23.46 kg/h0LmcaatnZac Mendiola MD Work Phone: [facility]06-06-2025 09:04-0400Body whgzyx35.47 kgTheresavwandy Mendiola MD Work Phone: [facility]06-06-2025 09:04-0400Diastolic blood jtpcrdyl03 mm[Hg]Zac Mendiola MD Work Phone: [facility]06-06-2025 09:04-0400Heart rate64 /min Zac Mendiola MD Work Phone: [facility]06-06-2025 09:04-1171VaQ5% (BldA) [Mass fraction]99 %Zac Mendiola MD Work Phone: [facility]06-06-2025 09:04-0400Systolic blood mafqjqip074 mm[Hg]Zac Mendiola MD Work Phone: [facility]06-05-2025 13:58-0400Body temperature 96.8 [degF]Triston Riggs MD Work Phone: [facility]06-05-2025 13:58-0400Diastolic blood gpnprcou68 mm[Hg]Triston Riggs MD Work Phone: [facility]06-05-2025 13:58-0400Heart rate81 /min Triston Riggs MD Work Phone: [facility]06-05-2025 13:58-0400Respiratory rate 16 /minTriston Riggs MD Work Phone: [facility]06-05-2025 13:58-0779QtA1% (BldA) [Mass fraction]97 %Triston Riggs MD Work Phone: [facility]06-05-2025 13:58-0400Systolic blood oredlfce620 mm[Hg]Triston Riggs MD Work Phone: [facility]05-30-2025 13:02-0400Body gubcdu787.9 Alhaji Hopper MD Work Phone: c[facility] CenterYsscit60-14-8157 13:02-0400Body mass index (BMI) [Ratio]26.99 kg/n2UzodqefeikJose Antonio Hopper MD Work Phone: [facility] Hmrjys19-54-4149 13:02-0400Body temperature 98.6 [degF]Jose Antonio Hopper MD Work Phone: [facility] Xyxyka49-91-5272 13:02-0400Body .27 kgJose Antonio Hopper MD Work Phone: [facility] Hmmkqe00-21-8459 13:02-0400Diastolic blood widiqklw19 mm[Hg]Jose Antonio Hopper MD Work Phone: [facility] Autith18-91-1921 13:02-0400Heart rate81 /min Jose Antonio Hopper MD Work Phone: [facility] Fjleuf02-13-6460 13:02-0400Respiratory rate 16 /minJose Antonio Hopper MD Work Phone: [facility] Ttujuk46-38-6297 13:02-6391SgP2% (BldA) [Mass fraction]96 %Jose Antonio Hopper MD Work Phone: [facility] Dkspoz79-43-5131 13:02-0400Systolic blood curdjdsc591 mm[Hg]Jose Antonio Hopper MD Work Phone: [place] Pfzrqr22-64-0093 08:44-0400Body yjaurq118.9 cmZabrina Suarez MD Work Phone: [place] Faxkjs17-45-0569 08:44-0400Body mass index (BMI) [Ratio]27.12 kg/j7XgaojeZabrina Suarez MD Work Phone: [place] Nnbcls96-44-6214 08:44-0400Body temperature 97.9 [degF]Zabrina Saurez MD Work Phone: [place] Ekqslu09-48-0898 08:44-0400Body degyer16.7 kgZabrina Suarez MD Work Phone: NUniversity [facility] CenterCjnuak98-63-5413 08:44-0400Diastolic blood tmgkxpee78 mm[Hg]Zabrina Suarez MD Work Phone: [facility] Hiyihc48-58-3775 08:44-0400Heart rate83 /min Zabrina Suarez MD Work Phone: S[facility] CenterCkjqby39-92-1195 08:44-0400Systolic blood zfmvhezg350 mm[Hg]Zabrina Suarez MD Work Phone: LUniversity [facility] Medical CenterRazrva65-94-6943 14:34-0400Body ugziql447.9 Kathia Ly CARDIOPULMONARY TECHNICIAN.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 Phone: [facility]04-30-2025 14:34-0400Body mass index (BMI) [Ratio]26.72 kg/b1FhgdemvXiomara Ly APRN.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 Phone: [phone]04-30-2025 14:34-0400Body temperature 97.2 [degF]Xiomara Ly CARDIOPULMONARY TECHNICIAN.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 Phone: [place] [address]-30-2025 14:34-0400Body qqkpxu88.36 kgXiomara Ly APRN.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 Phone: [facility]04-30-2025 14:34-0400Diastolic blood yjinualk25 mm[Hg]Xiomara Ly CARDIOPULMONARY TECHNICIAN.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 Phone: [facility]04-30-2025 14:34-0400Heart rate84 /min Xiomara Ly CARDIOPULMONARY TECHNICIAN.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 Phone: [place] [address]-30-2025 14:34-6568ZpV3% (BldA) [Mass fraction]95 %Xiomara Ly CARDIOPULMONARY TECHNICIAN.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 Phone: [place] [address]-30-2025 14:34-0400Systolic blood mm[Hg]Xiomara Ly CARDIOPULMONARY TECHNICIAN.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 Phone: [place] [address]-30-2025 12:51-0400Body temperature 96.8 [degF]Triston Riggs MD Work Phone: [phone]04-30-2025 12:51-0400Diastolic blood mm[Hg]Triston Riggs MD Work Phone: [phone]04-30-2025 12:51-0400Heart rate88 /min Triston Riggs MD Work Phone: [phone]04-30-2025 12:51-0400Respiratory rate 16 /minTriston Riggs MD Work Phone: [phone] [address]-30-2025 12:51-1114BgV4% (BldA) [Mass fraction]98 %Triston Riggs MD Work Phone: [phone]04-30-2025 12:51-0400Systolic blood cvngyjln114 mm[Hg]Triston Riggs MD Work Phone: [phone]04-11-2025 12:20-0400Heart rate67 /min Shay Dennis MD Work Phone: [phone] [address]-11-2025 12:20-0400Respiratory rate 16 /minShay Dennis MD Work Phone: [phone] [address]-11-2025 12:20-6900YuQ3% (BldA) [Mass fraction]99 %Shay Dennis MD Work Phone: [phone] [address]-11-2025 12:10-0400Diastolic blood zvaphehf52 mm[Hg]Shay Dennis MD Work Phone: [phone] [address]-11-2025 12:10-0400Systolic blood pismanjo574 mm[Hg]Shay Dennis MD Work Phone: [phone] [address]-11-2025 11:47-0400Body temperature 96.8 [degF]Shay Dennis MD Work Phone: [phone] [address]-11-2025 10:49-0400Body izmdxw621.9 Madelyn Dennis MD Work Phone: [facility]04-11-2025 10:49-0400Body mass index (BMI) [Ratio]26.45 kg/p0LezvjsShay Dennis MD Work Phone: [facility]04-11-2025 10:49-0400Body ldxmxa11.45 kgShay Dennis MD Work Phone: [facility]03-28-2025 12:11-0400Body uaqicd744.88 cmPrem[facility]03-28-2025 12:11-0400Body mass index (BMI) [Ratio]27.3 kg/u8VxhdxmprsPremier Health [facility]03-28-2025 12:11-0400Body .28 kgPrem[facility] Health [facility]03-28-2025 12:11-0400Diastolic blood joqjpdyg36 mm[Hg][facility]03-28-2025 12:11-0400 Heart rate88 /[facility]03-28-2025 12:11-0400 Respiratory rate12 /[facility]03-28-2025 12:11-0400 Systolic blood ymjybsqt962 mm[Hg][facility]03-21-2025 13:30-0400Body .9 cmVjuan francisco Hopper MD Work Phone: c[facility] CenterYkhkop63-55-2433 13:30-0400Body mass index (BMI) [Ratio]25.36 kg/w2UjjlhcyhvdJose Antonio Hopper MD Work Phone: [place] Djjgrj16-22-3527 13:30-0400Body temperature 98.6 [degF]Jose Antonio Hopper MD Work Phone: [place] Wkowcm69-21-5126 13:30-0400Body rvrelc01.82 kgJose Antonio Hopper MD Work Phone: [place] Fahuht36-03-8323 13:30-0400Diastolic blood wenesntz51 mm[Hg]Jose Antonio Hopper MD Work Phone: c[facility] CenterOrkchj46-72-3218 13:30-0400Heart rate77 /min Jose Antonio Hopper MD Work Phone: c[facility] CenterEulxgl67-02-4371 13:30-0400Respiratory rate 15 /minJose Antonio Hopper MD Work Phone: c[facility] CenterIwyqxv95-21-2364 13:30-1065GkJ7% (BldA) [Mass fraction]96 %Jose Antonio Hopper MD Work Phone: c[facility] CenterRvnerr37-82-2465 13:30-0400Systolic blood kqwiglkf527 mm[Hg]Jose Antonio Hopper MD Work Phone: c[facility] CenterEtweqk47-47-1428 10:43-0400Body qxtdyd040.9 cmSue Terrell MD Work Phone: [facility]03-10-2025 10:43-0400Body mass index (BMI) [Ratio]25.44 kg/d8UyyvupSue Terrell MD Work Phone: [phone]03-10-2025 10:43-0400Body temperature 97.9 [degF]Sue Terrell MD Work Phone: [phone]03-10-2025 10:43-0400Body aqubwe93.09 kgSue Terrell MD Work Phone: [phone]03-10-2025 10:43-0400Diastolic blood acfuooue40 mm[Hg]Sue Terrell MD Work Phone: [phone]03-10-2025 10:43-0400Heart rate78 /min Sue Terrell MD Work Phone: [phone] [address]-10-2025 10:43-3284HqD5% (BldA) [Mass fraction]96 %Sue Terrell MD Work Phone: [phone] [address]-10-2025 10:43-0400Systolic blood jqqmnjye051 mm[Hg]Sue Terrell MD Work Phone: [facility]03-04-2025 14:09-0500Body .9 Per Barragan CARDIOPULMONARY TECHNICIAN.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 Phone: [facility]levelSelect [facility] NorthZhgiqm90-02-5201 14:09-0500Body mass index (BMI) [Ratio]26.42 kg/s7Kffkw Anaiss CARDIOPULMONARY TECHNICIAN.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 Phone: HlevelSelect [facility] NorthCgkrwg77-25-3895 14:09-0500Body temperature 98.2 [degF]Della Manzos CARDIOPULMONARY TECHNICIAN.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 Phone: [place] Nfmqkf55-88-0765 14:09-0500Body amogib97.36 kgCardavey Manzos CARDIOPULMONARY TECHNICIAN.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 Phone: WlevelSelect [facility] NorthSvisso09-83-3280 14:09-0500Diastolic blood mm[Hg]Della Manzos CARDIOPULMONARY TECHNICIAN.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 Phone: J[facility] CenterChmigh79-69-8450 14:09-0500Heart rate82 /min Della Manzos CARDIOPULMONARY TECHNICIAN.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 Phone: [place] Ohpejz76-49-9362 14:09-0500Respiratory rate 14 /minCardavey Barragan CARDIOPULMONARY TECHNICIAN.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 Phone: ElevelSelect [facility] NorthRbjslb38-96-4590 14:09-7460FgI0% (BldA) [Mass fraction]98 %Della Manzos CARDIOPULMONARY TECHNICIAN.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 Phone: [place] Rhxhuj04-39-3229 14:09-0500Systolic blood zomrrqdv452 mm[Hg]Della Manzos CARDIOPULMONARY TECHNICIAN.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 Phone: [place] Apbown56-09-9353 13:27-0500Body mdadhh142.9 Alhaji Hopper MD Work Phone: [phone] Poqygk97-57-0467 13:27-0500Body mass index (BMI) [Ratio]26.31 kg/b3ZulsehxtamJose Antonio Hopper MD Work Phone: [facility] Gghemt22-99-5201 13:27-0500Body temperature 98.6 [degF]Jose Antonio Hopper MD Work Phone: [facility] Kavdqi52-16-6431 13:27-0500Body kg Jose Antonio Hopper MD Work Phone: c[facility] CenterIcwyzh33-41-5561 13:27-0500Diastolic blood txhaihdz84 mm[Hg]Jose Antonio Hopper MD Work Phone: [facility] Eembpt20-87-3751 13:27-0500Heart rate75 /min Jose Antonio Hopper MD Work Phone: c[facility] CenterFthjxr09-99-6633 13:27-0500Respiratory rate 16 /minJose Antonio Hopper MD Work Phone: c[facility] CenterSxcznd96-11-0226 13:27-7459RkI8% (BldA) [Mass fraction]98 %Jose Antonio Hopper MD Work Phone: c[facility] CenterEqjkfn09-40-8494 13:27-0500Systolic blood uehjswdg785 mm[Hg]Jose Antonio Hopper MD Work Phone: c[facility] CenterZzmqhx92-20-0723 12:49-0500Body temperature 97.2 [degF]Triston Riggs MD Work Phone: [facility]02-03-2025 12:49-0500Diastolic blood cwsvhibg79 mm[Hg]Triston Riggs MD Work Phone: [facility]02-03-2025 12:49-0500Heart rate89 /min Triston Riggs MD Work Phone: [place] [address]-03-2025 12:49-0500Respiratory rate 16 /minTriston Riggs MD Work Phone: [place] [address]-03-2025 12:49-9674XiQ9% (BldA) [Mass fraction]97 %Triston Riggs MD Work Phone: [phone]02-03-2025 12:49-0500Systolic blood mm[Hg]Triston Riggs MD Work Phone: [phone]01-28-2025 16:31-0500Body ixqxnq575.88 cmPrem[facility]01-28-2025 16:31-0500Body mass index (BMI) [Ratio]25.6 kg/n5XcqjbmqzgPremier Health [facility]01-28-2025 16:31-0500Body jxndvtwhcco46.1 [degF][facility]01-28-2025 16:31-0500Body .78 kgPrem[facility] Health [facility]01-28-2025 16:31-0500Diastolic blood xscdbnyt17 mm[Hg][facility]01-28-2025 16:31-0500 Heart rate87 /[facility]01-28-2025 16:31-0500 Respiratory rate12 /[facility]01-28-2025 16:31-0500 Systolic blood fokyxnwb402 mm[Hg][facility]01-06-2025 09:15-0500Body xfqygcdfrhk06 [degF]Triston Riggs MD Work Phone: [phone]01-06-2025 09:15-0500Diastolic blood fbhslyxf06 mm[Hg]Triston Riggs MD Work Phone: [phone]01-06-2025 09:15-0500Heart rate91 /min Triston Riggs MD Work Phone: [phone]01-06-2025 09:15-0500Respiratory rate 16 /minTriston Riggs MD Work Phone: [phone]01-06-2025 09:15-4862PdZ8% (BldA) [Mass fraction]98 %Triston Riggs MD Work Phone: [phone]01-06-2025 09:15-0500Systolic blood pwchiysz047 mm[Hg]Triston Riggs MD Work Phone: [facility]12-27-2024 14:15-0500Body .9 Alhaji Hopper MD Work Phone: [facility] Snhtao07-22-3699 14:15-0500Body mass index (BMI) [Ratio]25.63 kg/b9PxqijcoftfJose Antonio Hopper MD Work Phone: [facility] Xifvfx97-59-7112 14:15-0500Body temperature 98.6 [degF]Jose Antonio Hopper MD Work Phone: [facility] [phone] 14:15-0500Body gntuum84.73 kgJose Antonio Hopper MD Work Phone: [facility] [id number] 14:15-0500Diastolic blood bpwhgcni61 mm[Hg]Jose Antonio Hopper MD Work Phone: [facility] [phone] 14:15-0500Heart rate83 /min Jose Antonio Hopper MD Work Phone: [facility] [id number] 14:15-0500Respiratory rate 16 /minJose Antonio Hopper MD Work Phone: [facility] Xxeojj55-92-0446 14:15-6071XbJ8% (BldA) [Mass fraction]98 %Jose Antonio Hopper MD Work Phone: [facility] Rjefmm59-59-5252 14:15-0500Systolic blood wriehnoe166 mm[Hg]Jose Antonio Hopper MD Work Phone: [facility] Oggalg98-41-1284 12:22-0500Body iadmbe982.9 cmSteffen Villa MD Work Phone: [facility] Joouzr90-43-4096 12:22-0500Body mass index (BMI) [Ratio]25.3 kg/z8AoyirzSteffen Villa MD Work Phone: [phone] [address]-16-2024 12:22-0500Body temperature 97.9 [degF]Steffen Villa MD Work Phone: [phone] [address]-16-2024 12:22-0500Body mjkcza44.6 kgSteffen Villa MD Work Phone: [phone] [facility]als [facility] CenterMgmuje51-43-7490 12:22-0500Diastolic blood bxgbrnxi61 mm[Hg]Steffen Villa MD Work Phone: [phone] [address]-16-2024 12:22-0500Heart rate78 /min Steffen Villa MD Work Phone: [phone] [address]-16-2024 12:22-0500Systolic blood oljgxhfr191 mm[Hg]Steffen Villa MD Work Phone: [phone] [facility]als Conneaut Medical CenterUfixto58-04-2123 16:01-0500Body .9 cmSue Terrell MD Work Phone: [phone]12-10-2024 16:01-0500Body mass index (BMI) [Ratio]25.23 kg/s5YkamiySue Terrell MD Work Phone: [phone]12-10-2024 16:01-0500Body temperature 97.2 [degF]Sue Terrell MD Work Phone: [phone]12-10-2024 16:01-0500Body qgzheb62.37 kgSue Terrell MD Work Phone: [phone] [address]-10-2024 16:01-0500Diastolic blood mm[Hg]Sue Terrell MD Work Phone: [phone] [address]-10-2024 16:01-0500Heart rate81 /min Sue Terrell MD Work Phone: [phone] [address]-10-2024 16:01-9850LoB8% (BldA) [Mass fraction]98 %Sue Terrell MD Work Phone: [facility]12-10-2024 16:01-0500Systolic blood cbecsjfr478 mm[Hg]Sue Terrell MD Work Phone: [facility]12-02-2024 10:30-0500Body mass index (BMI) [Ratio]28.4 kg/x8IxaswuaLouise Cesar MD Work Phone: [facility]12-02-2024 10:30-0500Body temperature 97.81 [degF]Louise Cesar MD Work Phone: [facility]12-02-2024 10:30-0500Body kg Louise Cesar MD Work Phone: [facility]12-02-2024 10:30-0500Diastolic blood nrgwsduy34 mm[Hg]Louise Cesar MD Work Phone: [facility]12-02-2024 10:30-0500Heart rate76 /min Louise Cesar MD Work Phone: [facility]12-02-2024 10:30-8458FmA9% (BldA) [Mass fraction]96 %Louise Cesar MD Work Phone: [facility]12-02-2024 10:30-0500Systolic blood mm[Hg]Louise Cesar MD Work Phone: [facility]11-27-2024 10:27-0500Body .9 Alhaji Hopper MD Work Phone: c[facility] CenterRiruxh35-22-5782 10:27-0500Body mass index (BMI) [Ratio]28.35 kg/i8FvdfjtszdeJose Antonio Hopper MD Work Phone: c[facility] CenterSinrhb09-53-2925 10:27-0500Body temperature 98.6 [degF]Jose Antonio Hopper MD Work Phone: [facility] Moozbs59-56-0926 10:27-0500Body pnuyol89.8 kgJose Antonio Hopper MD Work Phone: [facility] Gfewjn74-75-6267 10:27-0500Diastolic blood fptuakus29 mm[Hg]Jose Antonio Hopper MD Work Phone: [facility] Pmvjmv07-02-4893 10:27-0500Heart rate75 /min Jose Antonio Hopper MD Work Phone: [facility] Oinuik69-45-3414 10:27-0500Respiratory rate 16 /minJose Antonio Hopper MD Work Phone: [facility] Xtxdpz72-99-0531 10:27-5158GdG1% (BldA) [Mass fraction]98 %Jose Antonio Hopper MD Work Phone: [facility] Esabvo41-42-9845 10:27-0500Systolic blood czgovvti928 mm[Hg]Jose Antonio Hopper MD Work Phone: [facility] Wbvxsb13-60-9534 12:30-0500Diastolic blood ggfznxno55 mm[Hg]Vic Ponce MD Work Phone: c[facility] CenterYynjbm95-77-0477 12:30-0500Heart rate85 /min Vic Ponce MD Work Phone: [facility] Wulvzl89-95-5589 12:30-0500Respiratory rate 21 /minEjonathan Ponce MD Work Phone: [facility] Majprj39-60-8696 12:30-3786YlQ9% (BldA) [Mass fraction]98 %Vic Ponce MD Work Phone: [facility] Bhzdgr07-38-0233 12:30-0500Systolic blood sudwtclc981 mm[Hg]Vic Ponce MD Work Phone: c[facility] CenterHrhjyc41-61-4520 12:02-0500Body temperature 99.1 [degF]Vic Ponce MD Work Phone: c[facility] CenterJzgwbw83-46-0113 11:48-0500Body xcuedc914.3 cmSue Terrell MD Work Phone: [facility]11-04-2024 11:48-0500Body mass index (BMI) [Ratio]29.18 kg/v3RldrmxSue Terrell MD Work Phone: [phone]11-04-2024 11:48-0500Body .89 kgSue Terrell MD Work Phone: [phone]11-04-2024 11:48-0500Diastolic blood vsqodapi46 mm[Hg]Sue Terrell MD Work Phone: [facility]11-04-2024 11:48-0500Heart rate89 /min Sue Terrell MD Work Phone: [facility]11-04-2024 11:48-3460BuM6% (BldA) [Mass fraction]97 %Sue Terrell MD Work Phone: [facility]11-04-2024 11:48-0500Systolic blood mm[Hg]Sue Terrell MD Work Phone: [facility]10-14-2024 09:26-0400Body .3 cmSteffen Villa MD Work Phone: [phone] Hospitals Conneaut Medical CenterAmmeqj68-73-6274 09:26-0400Body mass index (BMI) [Ratio]28.9 kg/j5QioqivSteffen Villa MD Work Phone: [phone] [facility]als [facility] Medical CenterGvsotl29-24-5596 09:26-0400Body temperature 97.7 [degF]Steffen Villa MD Work Phone: [phone] Hospitals Conneaut Medical CenterYznoru26-86-5998 09:26-0400Body yvvepn38 kg Steffen Villa MD Work Phone: [place] Bhlplo35-75-1471 09:26-0400Diastolic blood sabctkeb11 mm[Hg]Steffen Villa MD Work Phone: [phone] Ixbips79-92-1222 09:26-0400Heart rate92 /min Steffen Villa MD Work Phone: [phone] Tmhwgp07-39-6373 09:26-0400Systolic blood wxflhdau605 mm[Hg]Steffen Villa MD Work Phone: [place] Abdyjd15-27-9067 13:48-0400Body ccyxkz724.8 cmHaylhermila Zavarella PA-C Work Phone: [facility]10-01-2024 13:48-0400Body mass index (BMI) [Ratio]29.83 kg/s6Avaemb Zavarella PA-C Work Phone: [facility]10-01-2024 13:48-0400Body temperature 97.3 [degF]Ruma Zavarella PA-C Work Phone: [facility]10-01-2024 13:48-0400Body uxrwfu61.3 kgSalvadorylie Zavarella PA-C Work Phone: [facility]10-01-2024 13:48-0400Diastolic blood bzphuccv78 mm[Hg]Ruma Zavarella PA-C Work Phone: [facility]10-01-2024 13:48-0400Heart rate88 /min Ruma Zavarella PA-C Work Phone: [facility]10-01-2024 13:48-0400Respiratory rate 16 /minHacherylie Zavarella PA-C Work Phone: [facility]10-01-2024 13:48-3900OkQ7% (BldA) [Mass fraction]98 %Ruma Zavarella PA-C Work Phone: [facility]10-01-2024 13:48-0400Systolic blood heqiqpfz617 mm[Hg]Ruma Oshea PA-C Work Phone: [facility]10-01-2024 10:24-0400Body mass index (BMI) [Ratio]27.8 kg/e8IpaagizLouise Cesar MD Work Phone: [facility]10-01-2024 10:24-0400Body hvykrb76.99 kgLouise Cesar MD Work Phone: [facility]10-01-2024 10:24-0400Diastolic blood qvgebzar78 mm[Hg]Louise Cesar MD Work Phone: [facility]10-01-2024 10:24-0400Heart rate82 /min Louise Cesar MD Work Phone: [facility]10-01-2024 10:24-9491EhN2% (BldA) [Mass fraction]98 %Louise Cesar MD Work Phone: [facility]10-01-2024 10:24-0400Systolic blood hpoljybn750 mm[Hg]Louise Cesar MD Work Phone: [facility]08-28-2024 13:08-0400Body .9 cmYehuda Dial MD Work Phone: [facility]08-28-2024 13:08-0400Body mass index (BMI) [Ratio]27.67 kg/g7IjpbrbkYehuda Dial MD Work Phone: [facility]08-28-2024 13:08-0400Body .53 kgYehuda Dial MD Work Phone: [facility]08-28-2024 13:08-0400Diastolic blood pbtnpava04 mm[Hg]Yehuda Dial MD Work Phone: [facility]08-28-2024 13:08-0400Systolic blood nqyzmiwz274 mm[Hg]Yehuda Dial MD Work Phone: [place] [address]-28-2024 10:38-0400Body oeauxe876.9 Alhaji Hopper MD Work Phone: [place] [address]-28-2024 10:38-0400Body mass index (BMI) [Ratio]27.67 kg/g0AcnegdqhilJose Antonio Hopper MD Work Phone: [place] [address]-28-2024 10:38-0400Body temperature 98.6 [degF]Jose Antonio Hopper MD Work Phone: [place] [address]-28-2024 10:38-0400Body xqgzyv94.53 kgJose Antonio Hopper MD Work Phone: [place] [address]-28-2024 10:38-0400Diastolic blood lznborlw22 mm[Hg]Jose Antonio Hopper MD Work Phone: [place] [address]-28-2024 10:38-0400Heart rate86 /min Jose Antonio Hopper MD Work Phone: [place] [address]-28-2024 10:38-0400Respiratory rate 18 /minJose Antonio Hopper MD Work Phone: [place] [address]-28-2024 10:38-5280UiE8% (BldA) [Mass fraction]98 %Jose Antonio Hopper MD Work Phone: [place] [address]-28-2024 10:38-0400Systolic blood btjxjhyd528 mm[Hg]Jose Antonio Hopper MD Work Phone: [place] [address]-20-2024 13:32-0400Body uhuaju505.9 cmM[facility] CARDIOPULMONARY TECHNICIAN.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 Phone: [place] [address]-20-2024 13:32-0400Body mass index (BMI) [Ratio]27.12 kg/f1TrkdvtvbMiddletown Emergency Department CARDIOPULMONARY TECHNICIAN.[facility] Work Phone: [phone]08-20-2024 13:32-0400Body temperature 97.11 [degF][facility] CARDIOPULMONARY TECHNICIAN.[facility] Work Phone: [phone] [address]-20-2024 13:32-0400Body ytslcq46.7 kgMiddletown Emergency Department CARDIOPULMONARY TECHNICIAN.[facility] Work Phone: [phone] [address]-20-2024 13:32-0400Diastolic blood frfwruwj17 mm[Hg][facility] CARDIOPULMONARY TECHNICIAN.[facility] Work Phone: [phone] [address]-20-2024 13:32-0400Heart rate75 /min [facility] CARDIOPULMONARY TECHNICIAN.[facility] Work Phone: [phone] [address]-20-2024 13:32-0400Respiratory rate 16 /minMiddletown Emergency Department CARDIOPULMONARY TECHNICIAN.[facility] Work Phone: [phone] [address]-20-2024 13:32-6665LcT8% (BldA) [Mass fraction]95 %[facility] CARDIOPULMONARY TECHNICIAN.[facility] Work Phone: [phone]08-20-2024 13:32-0400Systolic blood lasrvgqe869 mm[Hg][facility] CARDIOPULMONARY TECHNICIAN.[facility] Work Phone: [phone]07-31-2024 11:36-0400Body pgyjni008.9 Alhaji Hopper MD Work Phone: c[facility] CenterNnccgo09-96-4716 11:36-0400Body mass index (BMI) [Ratio]29.02 kg/d9FtnztzivgcJose Antonio Hopper MD Work Phone: c[facility] CenterTzsopf48-26-4769 11:36-0400Body temperature 98.6 [degF]Jose Antonio Hopper MD Work Phone: c[facility] CenterLfarrj28-10-1814 11:36-0400Body awlrdv00.07 kgJose Antonio Hopper MD Work Phone: [place] [address]-31-2024 11:36-0400Diastolic blood lhsdzgow61 mm[Hg]Jose Antonio Hopper MD Work Phone: [place] [address]-31-2024 11:36-0400Heart rate80 /min JoseA ntonio Hopper MD Work Phone: [place] [address]-31-2024 11:36-0400Respiratory rate 16 /minJose Antonio Hopper MD Work Phone: [place] [address]-31-2024 11:36-2033BjX9% (BldA) [Mass fraction]96 %Jose Antonio Hopper MD Work Phone: [place] [address]-31-2024 11:36-0400Systolic blood mm[Hg]Jose Antonio Hopper MD Work Phone: [place] [address]-22-2024 15:28-0400Body mbyfek785.9 cmYehuda Dial MD Work Phone: [place] [address]-22-2024 15:28-0400Body mass index (BMI) [Ratio]29.02 kg/y7PaixgazYehuda Dial MD Work Phone: [place] [address]-22-2024 15:28-0400Body pfkmhu44.07 kgYehuda Dial MD Work Phone: [place] [address]-22-2024 15:28-0400Diastolic blood mm[Hg]Yehuda Dial MD Work Phone: [place] [address]-22-2024 15:28-0400Systolic blood qodjuxwu987 mm[Hg]Yehuda Dial MD Work Phone: [place] [address]-22-2024 13:36-0400Body iwvlcm841.9 cmRuma Oshea PA-C Work Phone: [place] [address]-22-2024 13:36-0400Body mass index (BMI) [Ratio]29.08 kg/k9AzyboaRuma Shultzvarella PA-C Work Phone: [facility]07-22-2024 13:36-0400Body temperature 97.2 [degF]Ruma Shultzvarella PA-C Work Phone: [place] [address]-22-2024 13:36-0400Body sedvmd87.25 kgRuma Shultzvarella PA-C Work Phone: [phone]22-2024 13:36-0400Diastolic blood bqvcuhuc98 mm[Hg]Ruma Shultzvarella PA-C Work Phone: [place] [address]-22-2024 13:36-0400Heart rate80 /min Ruma Shultzvarella PA-C Work Phone: [place] [address]-22-2024 13:36-0400Respiratory rate 16 /minRuma Shultzvarella PA-C Work Phone: [place] [address]-22-2024 13:36-8665NjH2% (BldA) [Mass fraction]96 %Ruma Shultzvarella PA-C Work Phone: [phone]22-2024 13:36-0400Systolic blood atnskvuq630 mm[Hg]Ruma Shultzvarella PA-C Work Phone: [place] [address]-05-2024 13:33-0400Body ulkhbw452.9 cmM[facility] CARDIOPULMONARY TECHNICIAN.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 Phone: [place] [address]-05-2024 13:33-0400Body mass index (BMI) [Ratio]31.33 kg/z8ZlsafuskMiddletown Emergency Department CARDIOPULMONARY TECHNICIAN.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 Phone: [place] [address]-05-2024 13:33-0400Body temperature 97.3 [degF][facility] CARDIOPULMONARY TECHNICIAN.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 Phone: [phone]05-2024 13:33-0400Body mmdzet855.78 kgM[facility]let[facility] CARDIOPULMONARY TECHNICIAN.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 Phone: [phone]07-05-2024 13:33-0400Respiratory rate 18 /minMiddletown Emergency [facility] CARDIOPULMONARY TECHNICIAN.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 Phone: [phone]07-05-2024 13:33-0225SmU5% (BldA) [Mass fraction]100 %[facility] CARDIOPULMONARY TECHNICIAN.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 Phone: [phone]06-28-2024 13:40-0400Body .9 cmM[facility] CARDIOPULMONARY TECHNICIAN.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 Phone: [phone]06-28-2024 13:40-0400Body mass index (BMI) [Ratio]31.1 kg/w9IkxuxadrMiddletown Emergency Department CARDIOPULMONARY TECHNICIAN.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 Phone: [phone]06-28-2024 13:40-0400Body temperature 97.3 [degF][facility] CARDIOPULMONARY TECHNICIAN.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 Phone: [phone]06-28-2024 13:40-0400Body uqgbpq769.01 kgMiddletown [facility] CARDIOPULMONARY TECHNICIAN.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 Phone: [phone]06-28-2024 13:40-0400Diastolic blood dxrkrpgo59 mm[Hg][facility] CARDIOPULMONARY TECHNICIAN.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 Phone: [phone]06-28-2024 13:40-0400Heart rate68 /min [facility] CARDIOPULMONARY TECHNICIAN.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 Phone: [phone]06-28-2024 13:40-0400Respiratory rate 16 /minM[facility]let[facility] Emergency [facility] CARDIOPULMONARY TECHNICIAN.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 Phone: [phone]06-28-2024 13:40-0481IjR5% (BldA) [Mass fraction]99 %[facility] CARDIOPULMONARY TECHNICIAN.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 Phone: [phone]06-28-2024 13:40-0400Systolic blood mm[Hg][facility] CARDIOPULMONARY TECHNICIAN.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 Phone: [phone]06-18-2024 13:21-0400Body ewssgk413.9 cmM[facility]let[facility] CARDIOPULMONARY TECHNICIAN.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 Phone: [phone]06-18-2024 13:21-0400Body mass index (BMI) [Ratio]30.61 kg/w2CzftnywbMiddletown Emergency Department CARDIOPULMONARY TECHNICIAN.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 Phone: [phone]06-18-2024 13:21-0400Body temperature 97.81 [degF][facility] CARDIOPULMONARY TECHNICIAN.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 Phone: [phone]06-18-2024 13:21-0400Body .38 kgM[facility]let[facility] CARDIOPULMONARY TECHNICIAN.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 Phone: [phone]06-18-2024 13:21-0400Diastolic blood kbalecse03 mm[Hg][facility] CARDIOPULMONARY TECHNICIAN.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 Phone: [phone]06-18-2024 13:21-0400Heart rate74 /min [facility] CARDIOPULMONARY TECHNICIAN.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 Phone: [phone]06-18-2024 13:21-0400Respiratory rate 14 /minMiddletown Emergency [facility] CARDIOPULMONARY TECHNICIAN.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 Phone: [phone]06-18-2024 13:21-1115VmW2% (BldA) [Mass fraction]98 %[facility] CARDIOPULMONARY TECHNICIAN.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 Phone: [phone]06-18-2024 13:21-0400Systolic blood mm[Hg][facility] CARDIOPULMONARY TECHNICIAN.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 Phone: [phone]06-14-2024 14:28-0400Body .9 cmM[facility] CARDIOPULMONARY TECHNICIAN.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 Phone: [phone]06-14-2024 14:28-0400Body mass index (BMI) [Ratio]31.57 kg/f9BeedomfjMiddletown Emergency Department CARDIOPULMONARY TECHNICIAN.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 Phone: [phone]06-14-2024 14:28-0400Body temperature 97.3 [degF][facility] CARDIOPULMONARY TECHNICIAN.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 Phone: [phone]06-14-2024 14:28-0400Body .6 kgMiddletown Emergency [facility] CARDIOPULMONARY TECHNICIAN.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 Phone: [phone]06-14-2024 14:28-0400Diastolic blood ilbvynfh71 mm[Hg][facility] CARDIOPULMONARY TECHNICIAN.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 Phone: [facility]06-14-2024 14:28-0400Heart rate71 /min [facility] CARDIOPULMONARY TECHNICIAN.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 Phone: [facility]06-14-2024 14:28-0400Respiratory rate 14 /minMiddletown Emergency [facility] CARDIOPULMONARY TECHNICIAN.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 Phone: [phone]06-14-2024 14:28-6285PaJ3% (BldA) [Mass fraction]98 %[facility] CARDIOPULMONARY TECHNICIAN.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 Phone: [phone]06-14-2024 14:28-0400Systolic blood xicsmfff253 mm[Hg][facility] CARDIOPULMONARY TECHNICIAN.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 Phone: [facility]05-28-2024 15:33-0400Body temperature 97 [degF]Roseann Rosario MD Work Phone: [phone] Qzzbkl62-01-3610 15:33-0400Diastolic blood sbalqglv21 mm[Hg]Rsoeann Rosario MD Work Phone: [place] Gtpfhz63-91-2422 15:33-0400Heart rate92 /min Roseann Rosario MD Work Phone: [phone] [facility] CenterZnndgf94-65-7118 15:33-0400Respiratory rate 24 /minRoseann Rosario MD Work Phone: [phone] CenterCsuzzw31-36-2761 15:33-8295KaU4% (BldA) [Mass fraction]97 %Roseann Rosario MD Work Phone: [phone] [facility]als [facility] Medical CenterCukzkk19-49-7815 15:33-0400Systolic blood hprbssqy199 mm[Hg]Roseann Rosario MD Work Phone: [phone] [facility] Medical CenterIiyzfm96-43-3922 15:03-0400Body bmxdru591.9 cmRvipul Rosario MD Work Phone: [phone] [facility] Medical CenterEazeuf38-00-3151 15:03-0400Body mass index (BMI) [Ratio]29.84 kg/b9KpdxvrgRoseann Rosario MD Work Phone: [phone] Medical CenterDgebhf56-90-3511 15:03-0400Body xskvky73.79 kgRoseann Rosario MD Work Phone: [phone]()[phone] Medical CenterZeewem81-99-1220 13:22-0400Body eyoxbd991.9 Ronald Flood MD, PhD Work Phone: [phone]05-28-2024 13:22-0400Body mass index (BMI) [Ratio]29.84 kg/q8BucjrzRonaldo Flood MD, PhD Work Phone: [phone]05-28-2024 13:22-0400Body temperature 97.3 [degF]Ronaldo Flood MD, PhD Work Phone: [phone]05-28-2024 13:22-0400Body zdwsbe76.79 kgRonaldo Flood MD, PhD Work Phone: [phone]05-28-2024 13:22-0400Diastolic blood mm[Hg]Ronaldo Flood MD, PhD Work Phone: [phone]05-28-2024 13:22-0400Heart rate91 /min Ronaldo Flood MD, PhD Work Phone: [phone]05-28-2024 13:22-0400Respiratory rate 14 /Abdullahi Flood MD, PhD Work Phone: [phone]05-28-2024 13:22-3358QaK6% (BldA) [Mass fraction]94 %Ronaldo Flood MD, PhD Work Phone: [phone]05-28-2024 13:22-0400Systolic blood qrlbwuij611 mm[Hg]Ronaldo Flood MD, PhD Work Phone: [phone]05-09-2024 12:01-0400Body qtlsez456.9 Ronald Flood MD, PhD Work Phone: [phone]05-09-2024 12:01-0400Body mass index (BMI) [Ratio]30.24 kg/o4NagbfwRonaldo Flood MD, PhD Work Phone: [phone]05-09-2024 12:01-0400Body temperature 97.39 [degF]Ronaldo Flood MD, PhD Work Phone: [phone]05-09-2024 12:01-0400Body .15 kgRonaldo Flood MD, PhD Work Phone: [phone]05-09-2024 12:01-0400Diastolic blood feqsyqpm31 mm[Hg]Ronaldo Flood MD, PhD Work Phone: [phone]05-09-2024 12:01-0400Heart rate82 /min Ronaldo Flood MD, PhD Work Phone: [phone]05-09-2024 12:01-0400Respiratory rate 14 /Abdullahi Flood MD, PhD Work Phone: [phone]05-09-2024 12:01-6776HoA8% (BldA) [Mass fraction]98 %Ronaldo Flood MD, PhD Work Phone: [phone]05-09-2024 12:01-0400Systolic blood mm[Hg]Ronaldo Flood MD, PhD Work Phone: [facility]02-27-2024 13:47-0500Body ksevph992.88 cmDO Sintia Clemente Work Phone: [facility]02-27-2024 13:47-0500 Body mass index (BMI) [Ratio]32 kg/m2DO Sintia Clemente Work Phone: [facility]02-27-2024 13:47-0500 Body .04 kgDO Sintia Clemente Work Phone: [facility]02-27-2024 13:47-0500 Diastolic blood mtquohfr93 mm[Hg]DO Sintia Clemente Work Phone: [facility]02-27-2024 13:47-0500 Heart rate88 /Vannesa Clemente Work Phone: [facility]02-27-2024 13:47-0500 Respiratory rate12 /LokeshO Sintia Clemente Work Phone: [facility]02-27-2024 13:47-0500 Systolic blood decshwve762 mm[Hg]DO Sintia Clemente Work Phone: [facility]02-06-2024 13:30-0500 Body qhithd712.88 cmBenjadarwin Ball Other [employer] Other 02-06-2024 13:30-0500Body mass index (BMI) [Ratio] 31.16 kg/u6Fcdqjpms Ball Other [facility] [employer] Other 02-06-2024 13:30-0500Body zorvwy739.24 kgBenjamin Ball Other [place] [employer] Other 02-06-2024 13:30-0500Diastolic blood bsbmhnty38 mm[Hg] Yuli Ball Other [employer] Other 02-06-2024 13:30-0500Respiratory rate12 /minBenjamin Ball Other [employer] Other 02-06-2024 13:30-0500Systolic blood spoffsjr355 mm[Hg] Yuli Ball Other [place] [employer] Other 11-06-2023 10:00-0500Body vpyjxh957.88 cmBenjamin Ball Other [employer] Other 11-06-2023 10:00-0500Body mass index (BMI) [Ratio] 30.78 kg/i6Zugtxqvm Ball Other [facility] [employer] [facility] Other 11-06-2023 10:00-0500Body ktqqui743.97 kgBenjamin Ball Other [place] [employer] Other 11-06-2023 10:00-0500Diastolic blood mskciavh558 mm[Hg]Yuli Ball Other [facility] [employer] Other 11-06-2023 10:00-0500Respiratory rate12 /minBenjamin Ball Other [employer] Other 11-06-2023 10:00-0500Systolic blood ukmdpqyd359 mm[Hg] Yuli Ball Other [employer] Other 08-28-2023 15:16-0400Body gzqnzi268.9 cmMargie Edouard DO Work Phone: 1(709) [phone]bsdmk74-88-0518 15:16-0400Body mass index (BMI) [Ratio]29.84 kg/b5CuhqcMargie Edouard DO Work Phone: [phone]jwcfh79-53-7259 15:16-0400Body .79 kg Margie Edouard DO Work Phone: [phone]pmgsf07-45-1655 09:46-0400Body lsfoxq422.9 cm Nena Huff DO Work Phone: [phone]afklh82-74-3953 09:46-0400Body mass index (BMI) [Ratio]29.84 kg/p5DnjitNena Huff DO Work Phone: [phone]mrufd69-82-6771 09:46-0400Body tgixmb80.79 kg Nena Huff DO Work Phone: [place]102-4763AkmmHiadjf02-261161XhjaFalcqi93-54-7836 10:00-0400Body vzkyzi819.88 cm Yuli Ball Other [employer] Other 07-27-2023 10:00-0400Body mass index (BMI) [Ratio] 30.11 kg/k5Tbdxudtf Ball Other [employer] Other 07-27-2023 10:00-0400Body lfpurt519.7 kgBenjamin Ball Other [employer] Other 07-27-2023 10:00-0400Diastolic blood zngmulvv12 mm[Hg] Yuli Ball Other [employer] Other 07-27-2023 10:00-0400Respiratory rate12 /minBenjamin Ball Other [employer] Other 07-27-2023 10:00-0400Systolic blood neopghor351 mm[Hg] Yuli Ball Other [employer] Other 06-05-2023 13:38-0400Body edaclx132.9 cmBrian Steginsky DO Work Phone: 1(615) [phone]eprrw49-32-9279 13:38-0400Body mass index (BMI) [Ratio]30.24 kg/j9Toeks Steginsky DO Work Phone: 1(609) [phone]mosys99-31-6824 13:38-0400Body tobcru410.15 kg Margie Steginsky DO Work Phone: 1(664) [phone]wiaik10-26-4823 13:20-0400Body kutpfe779.9 cm Grecia Faith PA-C Work Phone: 1(516) [phone]kxnzj95-89-7347 13:20-0400Body mass index (BMI) [Ratio]30.24 kg/f9WlgtvGrecia Faith PA-C Work Phone: 1(476) [phone]rudbj02-75-4071 13:20-0400Body ahauia815.15 kg Grecia Faith PA-C Work Phone: 1(316) [phone]fqioc16-27-7706 13:16-0400Body yufljr205.9 cm Margie Steginsky DO Work Phone: 1(273) [phone]ooaks53-16-1077 13:16-0400Body mass index (BMI) [Ratio]30.24 kg/n8Lxdlv Steginsky DO Work Phone: 1(459) [phone]zWcdmvk93-41-5088 13:16-0400Body ylblrp229.15 kg Margie Steginsky DO Work Phone: 1(391) [phone]amzan62-27-5416 14:44-0500BMI (Body Mass Index) 30.24 kg/x7Zitvg IvtetgEtcdHhwyph92-79-9274 14:44-0500Body .15 kgNena QutlxhNnfsSusnzs94-92-4551 14:44-8399Pyopjh178.9 cmNena [facility] 07-01-2019 09:59-0500BMI (Body Mass Index)30.79 kg/l8Hgsuc [facility] 07-01-2019 09:59-0500Body hugatk361.97 kgNena KftptlZkefPynemd61-55-2765 09:59-6797Empjzj171.9 Rebecca KehroaPrrmZnmrfz10-34-2789 11:30-0500BMI (Body Mass Index)30.79 kg/m2[facility] Work Phone: 1(907) 509-487402-13-2018 11:30-6414Lhpemh651.9 cmRay [facility] Work Phone: 1(888) [phone] 11:30-0265Gkwfwe887.97 kgRay [facility] Work Phone: 1(141) 369-540208-15-2017 12:07-0400BMI (Body Mass Index)29.97 kg/m2 [facility] Work Phone: 1(839) [phone] 12:07-1873Kszomd053.9 cmRay [facility] Work Phone: 1(270) 383-230408-15-2017 12:07-2642Avtejr055.25 kgRay [facility] Work Phone: Encounters Encounter DateEncounter TypeCare ProviderFacilityStart: 04-14-2025 End: 21-53-6677Rncbfdb encounter procedureSteven A Rusher DPM Work Phone: [facility] PodiatryComment on above:Dermatophytosis of nail (Primary Dx); Dystrophic nail; Pain around toenail, right foot; Pain around toenail, left footStart: 04-14-2025 End: 34-98-0705ttwubqmwgxSKXIJG A RUSHERNot AvailableStart: 04-14-2025 End: 29-47-3635Rerpvk flowsheetSteven A Rusher DPM Work Phone: [facility]ryStart: 04-14-2025 End: 68-50-3067Ftayis flowsheetSteven A Rusher DPM Work Phone: [facility]iatryStart: 04-09-2025 End: 94-11-9177vppsaakgoyTacvlytr Ball DO Work Phone: -[facility] Heightstart: 04-09-2025 End: 11-12-3350Rdzrnpz encounter procedureBelenard Mariscal DO-[facility] Work Phone: Start: 38-65-2058Pce-patient / Non-visitCatmo Berman CLAY MODELER-[facility] Work Phone: Start: 26-69-1746Jpx-patient / Non-visitPablito Hoffman MD-[facility] Work Phone: Start: 78-99-4742Eyu-patient / Non-visitPablito Hoffman MD-[facility] Work Phone: Start: 47-05-7196Qee-patient / Non-visitBijal Najera MD-[facility] Work Phone: Start: 54-87-0563Wne-patient / Non-visitBijal Najera MD-[facility] Work Phone: Start: 50-30-9170Gxv-patient / Non-visitBijal Najera MD-[facility] Work Phone: Start: 00-94-1768Tje-patient / Non-visitYehuda Pemberton DO-[facility] Work Phone: Start: 59-19-1858ifadwfrryrFKMHRFH MAJUMDAR [facility] 03-26-2025 End: 41-24-2835hluudrevilPWONXOCCIF ISAKOVFacility:[facility]art: 03-25-2025 End: 52-67-1775Hitdvc flowsheetSteven A Rusher DPM Work Phone: [facility] PodiatryStart: 03-25-2025 End: 77-45-5903Skglon flowsheetSteven A Rusher DPM Work Phone: [facility] PodiatryStart: 03-25-2025 End: 88-96-5451gclwobzjghMFHVBW A RUSHERNot AvailableStart: 03-25-2025 End: 20-20-5399Lssrku outpatient visit 15 minutesSteven A Rusher DPM Work Phone: no[place] PodiatryComment on above: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, stage 2 (CMS-HCC) (Primary Dx); Cellulitis of left foot; Pain in toe of left foot; Difficulty walkingStart: 03-24-2025 End: 90-08-1978hzkqtpmxzzPCOZMA NASEERFacility:[facility] Hospitaltart: 03-24-2025 End: 93-63-4813vmthxhrgbiMUVSYB BEVERIDGEcility:[facility] Start: 03-17-2025 End: 03-83-6685Nudbpl flowsheetSteven A Rusher DPM Work Phone: [facility] PodiatryStart: 03-17-2025 End: 93-16-1428Ixoxzx flowsheetSteven A Rusher DPM Work Phone: [facility] PodiatryStart: 03-17-2025 End: 50-02-0893Gxuljl outpatient visit 15 minutesSteven A Rusher DPM Work Phone: no[place] PodiatryComment on above: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, stage 2 (CMS-HCC) (Primary Dx); Cellulitis of left foot; Pain in toe of left foot; Difficulty walkingStart: 03-17-2025 End: 07-18-5578yylqhjwtpbYDYKKL A RUSHERNot AvailableStart: 03-16-2025 End: 54-51-3718sjnxcsnultOBSQOH NASEERFacility:[facility]tart: 03-12-2025 End: 68-15-1562Swwwpd flowsheetSteven A Rusher DPM Work Phone: [facility] PodiatryStart: 03-12-2025 End: 63-32-8457Dpxyef flowsheetSteven A Rusher DPM Work Phone: noMS [place] PodiatryStart: 03-12-2025 End: 27-50-3288jemehugrtlEJPMRO A RUSHERNot AvailableStart: 03-12-2025 End: 17-36-8054Jwsubi outpatient new 30 minutesSteven A Rusher DPM Work Phone: NOHC [place] PodiatryComment on above: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, stage 2 (CMS-HCC) (Primary Dx); Cellulitis of left foot; Pain in toe of left foot; Difficulty walkingStart: 03-12-2025 End: 63-34-4194velljiruguHSYAEJ A RUSHERNot AvailableStart: 03-05-2025 End: 92-04-1353aypalsdtquPJDJSSIWVW ISAKOVFacility:[facility] Start: 02-25-2025 End: 82-71-3160Mhropvr encounter procedureZabrina Suarez MD Work Phone: [facility] CenterComment on above:FLOYD (acute kidney injury) (Primary Dx); Screening for genitourinary condition; Elevated serum creatinine; Decreased GFR; Generalized edema; Pleural effusion, not elsewhere classifiedStart: 02-25-2025 End: 70-02-0182ojitlcxanzMeqilsAsia Suarez MD Work Phone: [facility] CenterStart: 09-44-7157yqpibovgyqyosvany MOOREacility:[facility]tart: 02-19-2025 End: 50-60-0128Kaxxcxwjpf hospital visit by Geoff Jung A21 5 Work Phone: RadiologyComment on above:Other ascites [R18.8]Start: 02-17-2025 End: 80-38-9880xfnwctdbyiRdmgx Oliver CARDIOPULMONARY TECHNICIAN.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 Phone: GastroenterologyComment on above:Willie Raymundo. 1950tart: 02-11-2025 End: 92-10-5260visayrqmrvSLTRLJTUPC ISMARCIALVFacility:[facility] Start: 02-02-2025 End: 89-04-3921myapkigfikWNPMarnie Gutierrezcility:[facility] Start: 01-26-2025 End: 29-04-5574Cgumasi encounter procedureJose Antonio Hopper MD Work Phone: Vjuan francisco Hopper MDComment on above:Metabolic encephalopathy (Primary Dx); Stage 3a chronic kidney disease (HCC); Primary hypertension; Lymphocytic colitis; Generalized edema; Orthostatic hypotension; Cramp and spasm; Urge incontinenceStart: 01-25-2025 End: 63-64-4348owvzvjhvtfKYGWGHTHCL ISAKOVFacility:[facility] Start: 01-19-2025 End: 11-31-7527EfykbnMtoleetbhk Isakov MD Work Phone: Jose Antonio Hopper MDStart: 01-12-2025 End: 13-54-8489LmviaeNsgouewcxa Isakov MD Work Phone: Vjuan francisco Hopper MDComment on above:Refill Request Start: 01-11-2025 End: 78-78-5139Sjnuqje encounter procedureTriston Riggs MD Work Phone: Pulmonary MedicineComment on above:Pleural effusion (Primary Dx); Pleuritis; Pericardial effusion (noninflammatory) (HCC); History of pericarditis; Lymphocytic colitisStart: 01-11-2025 End: 83-75-7558wlgmbpkchbKCAPR GILLESPIEFacility:[facility] Hospitaltart: 01-08-2025 End: 80-69-8779Axjgswvczx hospital visit by physicianGeneral Keron Ahumada Mc Work Phone: RadiologyComment on above:Pleural effusion, not elsewhere classified [J90]Start: 01-08-2025 End: 08-39-1681iuktazazeuFQKUV GILLESPIEFacility:[facility] Hospitaltart: 12-22-2024 End: 02-81-6362Gfshxhhmohru consultation with Wolfgang Hooper APRN.CNP Work Phone: GastroenterologyStart: 12-22-2024 End: 38-15-0014njallpggtrCskde Oliver APRN.CNP Work Phone: GastroenterologyComment on above:Elevated serum creatinine (Primary Dx); Elevated alkaline phosphatase levelStart: 12-16-2024 End: 40-23-9485mgpejgrtudRWKLOEH SHARMAFacility:[facility] Hospitaltart: 12-15-2024 End: 70-87-0283Xyzhmtg encounter procedureJose Antonio Hopper MD Work Phone: Jose Antonio Hopper MDComment on above:Mixed connective tissue disease (HCC) (Primary Dx); Urge incontinence; Hypokalemia; Recurrent 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; Muscle cramps; Hiatal herniaStart: 11-25-2024 End: 49-44-0600HftmcaIbcrccloug Isakov MD Work Phone: Vjuan francisco Lanv MDComment on above:Refill Request Start: 11-24-2024 End: 26-17-9774Mkmokb-up encounterZac Mendiola MD Work Phone: CardiologyStart: 11-23-2024 End: 31-22-8680Bmdzmjcwt encounterSezio Flood MD, PhD Work Phone: Thoracic ClinicComment on above:Received Outside Medical RecordsStart: 11-23-2024 End: 12-43-6228Jmurokb encounter procedureTriston Riggs MD Work Phone: Pulmonary MedicineComment on above:Pleural effusion (Primary Dx); Pleuritis; Pericardial effusion (noninflammatory) (HCC); Lymphocytic colitis; Other ascitesStart: 11-23-2024 End: 61-67-3294Ggbcvomavh hospital visit by physicianXr Chest Main Q85Dbspvhexx Comment on above:Pleural effusion, not elsewhere classified [J90]Hepatomegaly [R16.0]Start: 11-23-2024 End: 17-10-7396zbgmkaraagKBFUXIE PROVIDERFacility:[facility] Hospitaltart: 11-20-2024 End: 66-92-0204Cfcaep outpatient new 45 minutesNavneet Mendiola MD Work Phone: CardiologyComment on above:Extremity cyanosis (Primary Dx)Start: 11-20-2024 End: 55-68-0124mxqiisszbrBNGXLSM SHARMAFacility:[facility] Hospitaltart: 11-19-2024 End: 30-94-9505dxfpfpxkohVCJBB GILLESPIEFacility:[facility] Hospitaltart: 11-19-2024 End: 59-00-4256Rkyxbms encounter procedureTriston iRggs MD Work Phone: Pulmonary MedicineComment on above:Pleural effusion (Primary Dx)Start: 11-19-2024 End: 79-56-3133cmezggfxfoHYZGD GILLESPIEFacility:[facility] Hospitaltart: 11-19-2024 End: 13-79-4504Uujysudwyl hospital visit by physicianXr Chest Main Ja7Ifhwrixcs Comment on above:Pleural effusion [J90]Start: 11-17-2024 End: 74-93-5321Rrhgeidzb encounterMya (Pss) DozierPulmonary MedicineComment on above:Patient QuestionStart: 11-17-2024 End: 79-32-8650fzgsuyzlniCEHVSQBCDS ISAKOVFacility:[facility] Start: 11-13-2024 End: 30-75-9621Mzbkcpp encounter procedureJose Antonio Hopper MD Work Phone: Vjuan francisco Hopper MDComment on above:Anasarca (Primary Dx); Recurrent 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; Hepatomegaly; Hiatal hernia; Chronic gastritis without bleeding, unspecified gastritis type; HypomagnesemiaStart: 11-12-2024 End: 40-02-1672Tejeygutv department patient visitYULI MARISCAL [facility]: 11-05-2024 End: 25-04-3887uetoygfthwLDXFQTLZ E LOIDAFacility:[facility]tart: 91-09-8598hwjssymetgLKHOEEQV E BALLFacility:[facility] HospitalStart: 11-03-2024 End: 31-06-2049Wubbnf-up encounterTiffany Malachi CARDIOPULMONARY TECHNICIAN.CURT Work Phone: GastroenterologyStart: 10-31-2024 End: 65-06-1462Whjsrw-up encounterTifgriffin Ly APRN.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 Phone: GastroenterologyStart: 10-27-2024 End: 09-05-7079Hihxyh OnlyDelena R Clemon MAPulmonary MedicineComment on above: Pleural effusion (Primary Dx)Start: 10-23-2024 End: 62-30-9871Kczllvxvz encounterSezio Flood MD, PhD Work Phone: oracic ClinicComment on above:Received Outside Medical RecordsStart: 10-23-2024 End: 46-30-1071Ejixswzihn hospital [facility] physicianUlt[facility] Work Phone: [facility] Radiology UltrasoundComment on above: Elevated alkaline phosphatase level [R74.8]Start: 10-23-2024 End: 00-04-9856hjzmnsoefyGFNZNLQT E BALLFacility:[facility]ertart: 10-20-2024 End: 57-29-4131Pcsqgj-up encounterTifgriffin Ly APRN.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 Phone: GastroenterologyStart: 10-19-2024 End: 70-34-3661XbxczpFrshbkojdq Isakov MD Work Phone: Jose Antonio Hopper MDComment on above:Refill Request Start: 10-15-2024 End: 68-96-3329Fzjqel-up encounterTifgrfifin Ly APRN.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 Phone: GastroenterologyStart: 10-15-2024 End: 11-18-5764Wxtbklq encounter procedureZabrina Suarez MD Work Phone: [facility] CenterComment on above:FLOYD (acute kidney injury) (Primary Dx); Elevated BUN; Elevated serum creatinine; Decreased GFR; Lymphocytic colitis; Pleural effusion, not elsewhere classified; Generalized edemaStart: 10-15-2024 End: 05-89-8371cunfqvpiyaJljkbl J Augustine MD Work Phone: [facility] CenterComment on above:Serositis (HCC) (Primary Dx)Start: 10-14-2024 End: 66-56-6191qfmqjmqyqtPBUGFWK JARMANFacility:[facility] Hospitaltart: 10-14-2024 End: 11-23-7772hlismnecwmYNWCKAHP E BALLFacility:[facility] Hospitaltart: 10-14-2024 End: 43-44-1993Gdeirzz encounter procedureTifgriffin Ly APRN.CNP Work Phone: GastroenterologyComment on above:Elevated BUN (Primary Dx); Elevated serum creatinine; Decreased GFR; Elevated alkaline phosphatase levelPleural effusion (Primary Dx)Start: 10-14-2024 End: 38-59-8333wtggojikviVJQGLQGFI CLEMENTFacility:[facility] Start: 85-12-2136nlspnqfsxnOEWGUYL MAJUMDARFacility:[facility] Start: 10-13-2024 End: 53-31-7042Qkwwcohlnd hospital visit by physicianIgorral Keron Ahumada Mc Work Phone: RadiologyComment on above:Cough, unspecified type [R05.9]Start: 10-02-2024 End: 76-91-1040Yexur abstractGabby Contreras PA-C Work Phone: pulmonary MedicineStart: 10-02-2024 End: 65-86-8737Negvfuzll encounterHui Ivey [facility] TULSAAdmittingComment on above: Appointment ConfirmationStart: 10-02-2024 End: 10-82-2920nufglfmsvqNzomgh Naseer MD Work Phone: GastroenterologyComment on above:Willie Raymundo 1950 Willie Raymundo 5-16-5985Ihjws: 09-25-2024 End: 56-53-2915dtzlaulfqjAMANFB HELFANDFacility:[facility] Hospitaltart: 09-25-2024 End: 78-18-2563Lpuogsejxb hospital visit by physicianAndrew Strong MD Work Phone: GastroenterologyComment on above:Esophageal dysphagia [R13.19]Start: 09-23-2024 End: 97-16-7338Cmdvjaspc encounterSezio Flood MD, PhD Work Phone: Thoracic ClinicComment on above:Received Outside Medical RecordsStart: 09-18-2024 End: 23-18-5175misnjwiipuChpum Madsen RNGastroenterologyStart: 09-14-2024 End: 57-23-2315Qrxbvaita encounterMya (Pss) DozierPulmonary MedicineComment on above:Patient UpdateStart: 09-11-2024 End: 68-41-2456yilubmkwoyQDZSSAFNBQ ISAKOMoiFacility:[facility] Start: 09-11-2024 End: 02-93-4382baiytyeukoQppxgirunWVUMedicine [facility] Work Phone: Start: 09-11-2024 End: 81-91-8679Szulhxu encounter procedureFormerly [facility] Physician GroupAult[facility] Work Phone: Start: 09-08-2024 End: 14-27-8615xennzqrefvIOYWKBR ASHTONFacility:[facility] Hospitaltart: 09-04-2024 End: 80-27-0111Qkjmqtzfy encounterDevanna Ortiz [facility] G016Nwgbp: 09-04-2024 End: 61-53-4112Tgwuuwo encounter procedureJose Antonio Hopper MD Work Phone: Jose Antonio Hopper MDComment on above:Recurrent 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 (Primary Dx); Hypokalemia; Lymphocytic colitis; Anemia, unspecified type; Chronic insomniaStart: 09-04-2024 End: 65-91-4434nujrqlqyrjXPKKLF CICENIAFacility:[facility] Hospitaltart: 09-03-2024 End: 71-28-4661hycbyucwrxRWEOEDTPPW ISANDIEFacility:[facility] Start: 24-37-3837Lsl-patient / Non-visitSaint [facility] Work Phone: Start: 09-02-2024 End: 71-45-9070Aovyzkuos encounterCardavey Lior FARAZ Work Phone: admittingComment on above:Post Dc Program Call - Needs AttnAppointment (Thoracentesis)Start: 95-41-0072Jul-patient / Non-visit [facility]ician [facility] Work Phone: Start: 09-01-2024 End: 06-12-3664Bzwnzs Jesus Hopper MD Work Phone: Vyajosé manuel Isakov MDComment on above:Recurrent 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 (Primary Dx)Start: 04-75-2765Kee-patient / Non-visitSaint [facility] Work Phone: Start: 07-89-9918Xcu-patient / Non-visitSaint [facility] Work Phone: Start: 09-95-2455Pjr-patient / Non-visitSaint [facility] Work Phone: Start: 08-28-2024 End: 57-63-5739Usiifw Jesus Hopper MD Work Phone: Jose Antonio Isakov MDComment on above:Recurrent 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 (Primary Dx)Start: 08-27-2024 End: 74-11-9644Gkfegc flowsheetEmruel Bynum MD Work Phone: noms SWS DERMStart: 08-27-2024 End: 37-03-7002Cirxjm flowsheetEmruel Bynum MD Work Phone: NOM[facility] SWS DERMStart: 08-27-2024 End: 38-77-1639Kisizx outpatient visit 15 minutesEmruel Bynum MD Work Phone: noms SWS DERMComment on above:Seborrheic keratosis (Primary Dx); Actinic keratosis; Stasis dermatitis of both legs; LentiginesStart: 08-27-2024 End: 35-16-4483vineuronbdDNPQE A PETITTINot AvailableStart: 08-26-2024 End: 72-63-3965Ypivfh-up encounterSue Terrell MD Work Phone: GastroenterologyStart: 49-52-0945Laq-patient / Non-visitFormerly [facility] Work Phone: Start: 08-24-2024 End: 92-70-6103wpmuumkjqrEAESGADBJY ISAKOVFacility:[facility] Start: 08-24-2024 End: 14-10-1546Swikok outpatient visit 25 minutesSue Terrell MD Work Phone: GastroenterologyComment on above:Lymphocytic colitis (Primary Dx); Esophageal dysphagiaStart: 08-24-2024 End: 44-58-6209aflqhrennwJKLXNA NASEERFacility:[facility] HospitalStart: 08-21-2024 End: 94-92-4047Mxuqusxzk encounterCarol Lior KELLY.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 Phone: cardiologyComment on above:Post Dc Program Call - Needs AttnRefill RequestStart: 08-18-2024 End: 29-68-8130pbazngcholTTCAI WEGASFacility:[facility] HospitalStart: 08-18-2024 End: 09-48-2780Hpaxhit encounter procedureCarol Lior CARDIOPULMONARY TECHNICIAN.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 Phone: Thoracic ClinicComment on above:Pleural effusion (Primary Dx)Start: 14-84-6986Thi-patient / Non-visitFormerly [facility] GroupPar[facility] Work Phone: Start: 08-13-2024 End: 09-69-4568uyihqsvzigIODJQ GILLESPIEFacility:[facility] HospitalStart: 08-13-2024 End: 86-32-5356Umdygtnyou hospital visit by physicianXr [facility]Rad[facility] Comment on above:Pleural effusion [J90]Start: 08-12-2024 End: 87-40-4730cifvpskrqlTGQRHONM D ZAHLERNot AvailableStart: 08-12-2024 End: 30-24-7983Pczsfi flowsdagobertoAnne-Marie Pemberton Joy DO Work Phone: noms NB OPHTStart: 08-12-2024 End: 86-40-2874Nybygm flowsdagobertoAnne-Marie Pemberton Ranjankole DO Work Phone: noms NB OPHTStart: 08-12-2024 End: 26-01-8287Gqehqcian encounterSteppeace Contreras PA-C Work Phone: Pulmonary MedicineComment on above:Patient Update Patient QuestionPatient RequestStart: 08-10-2024 End: 43-32-4023Lxoptosdt encounterMya (Pss) DozierPulmonary MedicineComment on above:Patient QuestionStart: 08-04-2024 End: 85-20-8229Nhmrqjblh encounterSezio Flood MD, PhD Work Phone: oracic ClinicComment on above:Received Outside Medical RecordsStart: 08-03-2024 End: 07-63-2946Svjeceeyx encounterMya (Pss) DozierPulmonary MedicineComment on above:Patient UpdateStart: 07-29-2024 End: 72-71-8879Esedwz Jesus Hopper MD Work Phone: Jose Antonio Hopper MDComment on above:Pleural effusion (Primary Dx)Start: 09-04-1007Qvf-patient / Non-visitFircarilion new [facility] Physician Group- [facility] Work Phone: Start: 07-24-2024 End: 19-32-3515Sbibve Jesus Hopper MD Work Phone: Vjuan francisco Hopper MDComment on above:Fatigue, unspecified type (Primary Dx)Start: 07-21-2024 End: 09-22-3777Nftsmmr encounter procedureJose Antonio Hopper MD Work Phone: Vjuan francisco Hopper MDComment on above:Pleural effusion (Primary Dx); Muscle cramps; Anasarca; Hypomagnesemia; Lymphocytic colitisStart: 59-84-5559Nws-patient / Non-visitFirdora [facility] Work Phone: Start: 07-20-2024 End: 75-55-6519tezjkufvhdAIYPS GILLESPIEFacility:[facility]art: 07-20[facility]2024 End: 11-45-7268Lqyfijm encounter procedureTriston Riggs MD Work Phone: Pulmonary MedicineComment on above:Pleural effusion (Primary Dx); Pleuritis; Pericardial effusion (noninflammatory); Chronic coughStart: 07-20-2024 End: 97-77-1813phyximoemqYUYOXSGRX CLEMENTFacility:[facility] Start: 07-20-2024 End: 02-17-3633Vasfvdwszo hospital visit by physicianXr Chest Main Am9Syxovzlqk Comment on above:Pleural effusion [J90]Start: 66-54-5945xmvxphxgmaZJOA REGALA [facility] 07-17[facility]24 End: 33-82-8581Vkogg abstractGabby Contreras PA-C Work Phone: Pulmonary MedicineStart: 07-16-2024 End: 38-21-8752Hnpisnsgm encounterTriston Riggs MD Work Phone: Pulmonary MedicineComment on above:OrdersStart: 07-16-2024 End: 12-04-1803mefssfnhnnNIVLO GILLESPIEFacility:[facility]tart: 07-14-2024 End: 35-79-9897Twgcqcl encounter procedureRoney Physician [facility] Work Phone: Start: 07-10-2024 End: 85-20-5687SuocjaRhgnrNayana Edouard DO Work Phone: [facility] Orthopedic SurgeonsStart: 07-08-2024 End: 75-58-3143Apxyr abstractGabby Contreras PA-C Work Phone: Pulmonary MedicineStart: 06-29-2024 End: 29-67-9114Aofzghtpb encounterDevanna Ortiz CTOGDEN REGION[facility] MAIN G584Mlxcute on above:AppointmentStart: 06-22-2024 End: 56-17-9694Pxefen OnlyKaterina Contreras PA-C Work Phone: Pulmonary MedicineComment on above:Pleural effusion (Primary Dx)Pleural effusion (Primary Dx); Pleuritis; Lymphocytic colitis; Pericardial effusion (noninflammatory); Interstitial pulmonary disease (HCC)Start: 06-12-2024 End: 74-14-7707Oevdaae encounter procedureJose Antonio Hopper MD Work Phone: Jose Antonio Hopper MDComment on above:Recurrent 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 (Primary Dx); Primary hypertension; Lymphocytic colitis; Elevated C-reactive protein (CRP); Exocrine pancreatic insufficiency; Hypokalemia; AnasarcaStart: 06-01-2024 End: 12-54-2677ztrbvlntgeHUACWVShayna VILLAFacility:[facility] Start: 06-01-2024 End: 22-68-3461Keyihc outpatient visit 25 minutesSteffen Villa MD Work Phone: RheumatologyComment on above:Pleural effusion (Primary Dx); Elevated sed rate; Elevated C-reactive protein (CRP)Start: 05-29-2024 End: 91-04-0286napivrhbyrMVZKESBT E BALLFacility:[facility] HospitalStart: 05-26-2024 End: 84-76-7984xdtlqgpnvuYNWAMW NASEERFacility:[facility]tart: 05-26-2024 End: 62-91-4056Oadbhw outpatient visit 25 Ernesto Terrell MD Work Phone: GastroenterologyComment on above:Lymphocytic colitis (Primary Dx)Start: 05-25-2024 End: 09-22-9190Pboppxmxt encounterTehayley Longoria HUCAdmittingStart: 05-18-2024 End: 97-89-7484wxdmxmdukxZGNLZAM MAJUMDARFacility:[facility] Start: 05-18-2024 End: 80-75-4313Jnpoilvdmj hospital visit by physicianRolan [facility] [place] Work Phone: RadiologyComment on above:Pleural effusion [J90]Start: 05-18-2024 End: 01-42-4950uuvqnhyhfcEWFHEYX MAJUMDARFacility:[facility] Start: 05-18-2024 End: 23-80-5210Jigsajs encounter procedureLouise Cesar MD Work Phone: Pulmonary MedicineComment on above:Pleural effusion (Primary Dx); Chronic cough; Lung nodule; Lymphocytic colitisStart: 05-13-2024 End: 26-94-4389Higxwbe encounter procedureJose Antonio Hopper MD Work Phone: Jose Antonio Hopper MDComment on above:Recurrent 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 (Primary Dx); Anasarca; Chronic cough; Primary hypertensionStart: 05-11-2024 End: 55-83-5035eilfagivbgWivvzi Naseer MD Work Phone: GastroenterologyComment on above:Willie Johnson: 05-07-2024 End: 61-05-0596kdwiziecfxJcdonn Naseer MD Work Phone: GastroenterologyComment on above:Willie Johnson: 05-05-2024 End: 14-48-5488iaaldgfszmQluiow Naseer MD Work Phone: GastroenterologyComment on above:Willie Johnson: 04-30-2024 End: 83-86-9792JdnupmBlanca Terrell MD Work Phone: [facility] Endoscopy - ENDOStart: 04-28-2024 ambulatoryVASILIY OLARFacility:[facility]art: 04-28-2024 End: 11-50-4422Ebhcdpgsby hospital visit by Marisol Ponce MD Work Phone: [facility] Endoscopy - ENDOComment on above: Diarrhea, unspecified type [R19.7]Start: 49-53-8853uvuliqqylsIOENA E ARKOUSH [facility]: 04-22-2024 End: 66-01-7982ipnnveleeuCSKMMF NASEERFacility:[facility]tart: 04-22-2024 End: 34-73-7444Mvavqfefzy hospital visit by physicianValerie [facility] ([facility]Stat)CT Scan [place] FHCComment on above:Diarrhea, unspecified type [R19.7]Start: 04-20-2024 End: 71-40-3270nwecfovhziLCQJMJ NASEERFacility:[facility] Hospitaltart: 04-20-2024 End: 00-61-1728Rttghi outpatient new 45 Ernesto Terrell MD Work Phone: GastroenterologyComment on above:Abdominal pain, unspecified abdominal location (Primary Dx); Diarrhea, unspecified typeStart: 04-20-2024 End: 29-38-2207xfbcljppoqEUTXPU NASEERFacility:[facility] Hospitaltart: 03-30-2024 End: 49-02-6958Rpzanb outpatient new 60 Bal Villa MD Work Phone: RheumatologyComment on above:Pleural effusion (Primary Dx); Elevated sed rate; Elevated C-reactive protein (CRP); Diarrhea, unspecified typeStart: 54-28-5792lwuophowuhUJMLPRH MAJUMDAR [facility]: 03-26-2024 End: 63-46-5692Luvzwmtenm hospital visit by Ki Toure Work Phone: Cardiovascular TestingComment on above:Pericarditis, unspecified chronicity, unspecified type [I31.9]Start: 86-01-2494laifssrcvg [facility] HOSPITALRFacility:[place] HospitalStart: 03-17-2024 End: 95-95-1903Fzbraieklo hospital visit by physicianRadio Ct Scan [place] Work Phone: RadiologyComment on above:Interstitial pulmonary disease (HCC) [J84.9]Start: 03-17-2024 End: 28-77-2670udhlffeucpNFKMPBW MAJUMDARPulmonary LabComment on above: SpirometryStart: 03-17-2024 End: 62-42-9978Pezwrlp encounter procedureRuma Oshea PA-C Work Phone: Thoracic SurgeryComment on above:Pleural effusion (Primary Dx)Start: 03-17-2024 End: 44-84-3202Nuevaol encounter Daniel Cesar MD Work Phone: PULMONOLOGY [facility]ITALOR HOSPITALComment on above:Chronic cough (Primary Dx); Pleural effusion; Pleuritis; Interstitial pulmonary disease (HCC); Pericardial effusion (noninflammatory); Pericarditis, unspecified chronicity, unspecified typeStart: 03-17-2024 End: 94-82-2995Iehvjffjdn hospital visit by physicianXr [facility] RAY / RAD[facility]OLOGY [facility]PITALComment on above:Chronic bronchitis, unspecified chronic bronchitis type (HCC) [J42]Start: 03-17-2024 End: 62-93-4808Cauvpmr encounter procedureYovani Ortegat Lab1 - MentorPULMONOLOGY LAB [facility]ITALOR HOSPITALStart: 03-17-2024 End: 35-26-7731prqnfuoqdjFBDOVKC MAJUMDARPULMONOLOGY LAB [facility]ITALOR HOSPITALComment on above:SpirometryStart: 03-03-2024 End: 24-47-8846Xpzsergmi encounterSezio Flood MD, PhD Work Phone: CardiologyComment on above:Post Dc Program Call - Needs AttnPatient UpdateStart: 02-21-2024 End: 01-93-0588Ktcqqpuay Naya Flood MD, PhD Work Phone: oracic ClinicComment on above:Patient Update (Pleurex output )Start: 02-12-2024 End: 36-57-1806Papilby encounter Ellie Dial MD Work Phone: Yehuda Dial MDComment on above:Recurrent 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 (Primary Dx); History of pericarditisStart: 02-12-2024 End: 94-80-0158Llpeeoo encounter procedureJose Antonio Hopper MD Work Phone: Vjuan francisco Hopper MDComment on above:Recurrent 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 (Primary Dx); Primary hypertension; Pleural effusion; Chronic cough; Anemia, unspecified type; HypomagnesemiaStart: 02-04-2024 End: 85-06-5047Nppsfod encounter procedureMiddletown Emergency Department CARDIOPULMONARY TECHNICIAN.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 Phone: [facility] SurgeryComment on above:Pleural effusion (Primary Dx); Elevated sed rate; Elevated C-reactive protein (CRP)Start: 02-04-2024 End: 49-28-7672zaemvifynzQUVTIMOO WILTSHIREFacility:[facility]tart: 02-04-2024 End: 61-42-5847Khxssuohla hospital visit by physicianRolan [facility] MCComment on above:Pleural effusion [J90]Start: 01-28-2024 End: 61-29-4842Fpdsrl Ruben Huff DO Work Phone: [facility] Orthopedic SurgeonsStart: 01-22-2024 Admission to same day surgery [facility] CARDIOPULMONARY TECHNICIAN.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 Phone: oracic SurgeryComment on above:Willie DomingoEssentia HealthStart: 93-46-3463ocjqqnhccoAdergpot [place] CARDIOPULMONARY TECHNICIAN.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 Phone: oracic SurgeryStart: 44-14-3485Pyellnopo encounter Ronaldo Flood MD, PhD Work Phone: oracic ClinicComment on above:Received Outside Medical RecordsStart: 01-15-2024 End: 80-25-7633Wbofvmp encounter procedureJose Antonio Hopper MD Work Phone: Jose Antonio Hopper MDComment on above:Recurrent 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 (Primary Dx); Chronic cough; Elevated C-reactive protein (CRP); Elevated sedimentation rateStart: 01-06-2024 End: 56-23-5256Auunkvu encounter Stella Oshea PA-C Work Phone: [facility] SurgeryComment on above:Pleural effusion (Primary Dx)Recurrent pleural effusion (Primary Dx); History of pericarditis; Chronic coughStart: 01-06-2024 End: 96-40-9008jqesallirqMBXWTV ZAVARELLAFaciltuscarawas hospital:[facility] Hospitaltart: 01-06-2024 End: 85-67-4061Yasyykplnl hospital visit by physicianXr [facility] HobartComment on above:Recurrent 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 [J90] Start: 12-20-2023 End: 03-34-4051Coascxudcs and management of [facility] Facility:[facility]tart: 12-20-2023 End: 96-99-5324Cocicke encounter procedureMiddletown Emergency Department CARDIOPULMONARY TECHNICIAN.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 Phone: [facility] SurgeryComment on above:Follow-up examination after lung surgery (Primary Dx); Pleural effusion; Bilateral lower extremity edema; Anasarca; Nausea vomiting and diarrheaStart: 12-20-2023 End: 13-25-5314fbmpemryjlDIBGGTZKNewton Medical Center:[facility]tart: 12-20-2023 End: 42-08-0491Ftdmqljkep hospital visit by physicianXr [facility] – HobartComment on above:Pleural effusion [J90]Start: 12-17-2023 Telephone Naya Flood MD, PhD Work Phone: CardiologyStart: 12-13-2023 End: 41-65-6864Wtbhnzm encounter procedureMiddletown Emergency Department 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 Phone: [facility] SurgeryComment on above:Pleural effusion (Primary Dx)Start: 12-13-2023 End: 72-13-8313snxszfshweLYJOLMTRAstria Regional Medical Centerity:[facility]tart: 12-13-2023 End: 16-64-8023Pdattyzirc hospital visit by physicianXr [facility] HOSPComment on above:Pleural effusion [J90]Start: 12-03-2023 Telephone encounterMiddletown Emergency Department FARAZ Work Phone: [facility] ClinicComment on above:Schedule and Confirm AppointmentsStart: 12-03-2023 End: 79-89-8127Ssonopq encounter procedureMiddletown Emergency Department FARAZ Work Phone: [facility] SurgeryComment on above:Follow-up examination after lung surgery (Primary Dx); Pleural effusionStart: 12-03-2023 End: 53-07-6427cszwmbxrxsSZEGXMZV WILTSHIREFacility:[facility] Hospitaltart: 12-03-2023 End: 03-42-7850Bzyapjgmum hospital visit by physicianXr [facility] HobartComment on above:Follow-up exam [Z09]Start: 11-29-2023 End: 50-21-5969Xtypnk OnlyMiddletown Emergency Department FARAZ Work Phone: [facility] ClinicComment on above:Follow-up exam (Primary Dx)Surgery follow-up [Z09]Follow-up examination after lung surgery (Primary Dx); Pleural effusionStart: 37-08-6630Zrsovxosc encounterSezio Flood MD, PhD Work Phone: [facility] SurgeryStart: 11-12-2023 End: 66-94-0310Niefklnfkk hospital visit by [place] Rosario MD Work Phone: admittingComment on above: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 Vincent Hospitaltart: 11-12-2023 End: 79-98-9914Chuxoyxunf hospital visit by physicianCard InjectionMolecular ImagingStart: 11-12-2023 End: 96-15-0491Npdzhgh encounter statusXr J1 Work Phone: [facility]: 11-12-2023 End: 90-20-1298Qqgxfbnvxd hospital visit by physicianXr Chest Main J1 Work Phone: RadiologyComment on above:Pleural effusion [J90]Start: 27-61-4581Ufsybbski encounterSezio Flood MD, PhD Work Phone: oracic ClinicComment on above:Patient Question (pt not)Start: 61-25-9177Mhlbvoavs to same day surgery centerSezio Flood MD, PhD Work Phone: oracic ClinicComment on above:Schedule Surgery (Right VATS biopsy/ pleurodesis cs=2.5 los =2-3)Start: 71-35-0836cbnwvtbagv Ronaldo Flood MD, PhD Work Phone: [facility]: 18-65-9976Hhpjwmw encounter statusSuterrell Flood MD, PhD Work Phone: [facility]: 10-24-2023 End: 77-65-9800Ozliqjj encounter procedureSezio Flood MD, PhD Work Phone: oracic ClinicComment on above:Obesity, Class I, BMI 30-34.9 (Primary Dx); Pleural effusionStart: 62-52-8194Atjfdhexg encounterSezio Flood MD, PhD Work Phone: oracic ClinicComment on above:External Referrals/resourcesStart: 07-69-3038Scjvbqrdi encounterNo Pcp APRNReferring PhysicianComment on above:External Referrals/resourcesStart: 10-02-2023 End: 18-53-7818rdekzsmgadMP Sintia Clemente Work Phone: [facility] Work Phone: Start: 10-02-2023 End: 62-59-0500Jtucvalh ReferredDO Sintia Clemente Work Phone: [facility]-LAB Path Spec [place] HospStart: 10-01-2023 End: 53-61-1854cnpsipqoedFjpmok P SamsaFacility:[facility]tart: 53-22-5722Jvk-patient / Non-visitDO Sintiacandida Mcarthursa Work Phone: [facility] GroupL[facility] Work Phone: Start: 60-21-9865Qbz-patient / Non-visitDO Sintiacandida Mcarthursa Work Phone: [facility] GroupL[facility] Work Phone: Start: 09-05-2023 End: 58-07-1916idmfdkcavtWaqeib P SamsaFacility:[facility]tart: 09-05-2023 End: 60-30-3638zzneqzvjrlRK Sintia Clemente Work Phone: [facility] Work Phone: Start: 09-05-2023 End: 91-29-6292Sgjbmfih ReferredDO Sintia Clemente Work Phone: [facility]-LAB Path Spec [place] HospStart: 09-04-2023 End: 14-64-1042cdjtdhdskpCcjmcn P SamsaFacility:[facility] Hospitaltart: 09-04-2023 End: 09-67-3000ixgpnjuldtMQ Sintiacandida Mcarthursa Work Phone: [facility] Work Phone: Start: 09-04-2023 End: 89-42-1548Vydxckdy ReferredDO Sintiacandida Mcarthursa Work Phone: [facility]-LAB Path Spec [place] HospStart: 84-07-0880Vfc-patient / Non-visitDO Sintia Mcarthursa Work Phone: [facility] Physician [facility] Work Phone: Start: 50-54-8013Bjg-patient / Non-visitDO Sintia Clemente Work Phone: [facility] Work Phone: Start: 29-74-5552Idc-patient / Non-visitDO Sintia Clemente Work Phone: [facility] Work Phone: Start: 59-91-5780Hnp-patient / Non-visitDO Sintia Clemente Work Phone: [facility] Phys[facility] GroupL[facility] Work Phone: Start: 66-11-3502Wkg-patient / Non-visitDO Sintia Cleemnte Work Phone: [facility] Physician [facility] Work Phone: Start: 08-13-2023 End: 15-50-5186Dtpchmd encounter procedureDO Sintia Clemente Work Phone: [facility] Phys[facility] Work Phone: Start: 07-23-2023 End: 01-67-7584fffqgtqbduXcedleiq Ball Other [employer] [facility] [employer] Other Start: 23-45-7032Izhtgio encounter procedureBenjamin BallFPG [facility] Medical ClinicStart: 07-10-2023 End: 97-14-9246lxcuxwtcaoLybpawtg Ball Other [employer] Other Start: 07-22-5180Bxzdqeyot encounterBenjamin BallFPG [facility] ClinicStart: 07-08-2023 End: 59-19-0876tmjijosweeLbhfzvow Ball Other [employer] Other Start: 81-41-7867Mbvjeaosu encounterBenjamin BallFPG [facility] ClinicStart: 07-07-2023 End: 56-56-6908zdashloqrdPwzybgmy Ball Other [employer] Other Start: 18-39-5161Drfbngxld encounterBenjamin BallFPG [facility] ClinicStart: 06-25-2023 End: 78-73-8547UtatmkBlanca Spangler [facility] Orthopedic SurgeonsComment on above:Status post total knee replacement, bilateral (Primary Dx)Start: 22-36-5322Vvmetptrx encounterBenjamin BallFPG [facility] Medical ClinicStart: 05-07-2023 End: 46-20-9587lafiogimqsGhajjxxk Ball Other [employer] Other Start: 92-24-9340Ycbofxzpr encounterBenjamin BallFPG [facility] ClinicStart: 04-24-2023 End: 54-66-9076cgfewnrqiuRqnamgch Ball Other [employer] Other Start: 62-29-5066Rvyyddbnn encounterBenjamin BallFPG [facility] ClinicStart: 04-22-2023 End: 53-95-7883qitsowhwgfMhyomjqb Ball Other [employer] Other Start: 60-80-2426Jaeamxw encounter procedureBenjamin BallFPG [facility] ClinicStart: 04-19-2023 End: 76-95-5993fuvplwrwtmZvvewqwi Ball Other [employer] Other Start: 52-96-9431Opvdtulrp encounterBenjamin BallFPG [facility] ClinicStart: 04-17-2023 End: 48-58-8456nefuoemcliVxsfitfc Ball Other [employer] Other Start: 95-29-5443Tvnfbyajm encounterBenjelly Mariscal Medical ClinicStart: 02-11-2023 End: 74-73-9112Cfvx/qhp telephone evaluation 5-10 minMargie Edouard DO Work Phone: [facility] Orthopedic SurgeonsComment on above:Hallux rigidus of left foot (Primary Dx)Start: 02-11-2023 End: 08-47-8393QueuxhYaycva Mundy [facility] Orthopedic SurgeonsStart: 01-16-2023 End: 14-77-0814dpiueirxfvTPVPAPKY E Observable Networksio Health AmbulatoryStart: 01-16-2023 End: 77-68-6852Lxdean outpatient visit 10 minutesNena Huff DO Work Phone: [facility] Orthopedic SurgeonsComment on above:Status post total knee replacement, bilateral (Primary Dx)Start: 01-10-2023 End: 54-97-4243ztmmgkcwtqAffgjnri Ball Other [place] [employer] Other Start: 68-18-9255Lvlthzy encounter procedureBelenard Mariscal Medical ClinicStart: 11-19-2022 End: 24-81-1853zlfxvqkmomMEZNTWPU E [employer] Networksio Health AmbulatoryStart: 11-19-2022 End: 52-73-7312Zvjipc outpatient visit 15 minutesMargie Edouard DO Work Phone: [facility] Orthopedic SurgeonsComment on above:Hallux rigidus of left foot (Primary Dx)Start: 10-08-2022 End: 18-86-7986cffxtgmiehYPHFKVMP E Observable Networksio Health AmbulatoryStart: 10-08-2022 End: 15-16-9118Gbfijm outpatient visit 5 minutesGrecia Faith PA-C Work Phone: [facility] Orthopedic SurgeonsComment on above:Hallux rigidus of left foot (Primary Dx); Metatarsalgia, left footStart: 46-43-9924SlrlhhUftjfl Mundy [facility] Orthopedic SurgeonsStart: 08-28-2022 End: 40-21-6620OaqfvpJdztxg Schroeder Athletic TrainZanesville City Hospital Orthopedic SurgeonsStart: 08-28-2022 End: 28-45-4266Omarpi outpatient new 30 minutesBrian Rebecca Javan DO Work Phone: [employer] Orthopedic SurgeonsComment on above:Hallux rigidus of left foot (Primary Dx); Eaton's metatarsalgia, leftStart: 03-19-2022 End: 63-26-8968rxfnymqtzoIB NONE LISTED REQUESTFacility:F6Fnqqq: 08-11-2021 RefFlorentin Huff DO Work Phone: Wy[employer] Poalro[facility] Rongroeurng Orthopedic SurgeonsComment on above:Status post total knee replacement, bilateral (Primary Dx)Start: 08-11-2020 End: 20-71-5725Odmdwx OnlyKatmarshall medical center south Colbyjosias Todd Work Phone: [facility] Start: 07-20-2020 End: 37-42-2706Rjyhbh outpatient visit 10 Stephen Huff Work Phone: Wy[facility] Poalro[facility] Rongroeurng Orthopedic SurgeonsComment on above:Status post total knee replacement, bilateral (Primary Dx)Start: 07-01-2019 End: 10-53-2554Utgnao outpatient visit 10 Stephen Huff Work Phone: [employer] Orthopedic SurgeonsComment on above:Status post total knee replacement, bilateral (Primary Dx)Start: 07-30-2017 Office/outpatient visit, est, level 3Ray Stew Calloway Work Phone: [facility] Orthopedic SurgeonsStart: 01-29-2017 End: 67-83-0107Epfnub outpatient visit 15 minutesRay Stew Calloway Work Phone: [facility] Orthopedic SurgeonsComment on above:Primary osteoarthritis of right knee (Primary Dx);Status post total right knee replacement Procedures DateProcedureProcedure DetailPerforming ClinicianStart: 43-63-8360Ttgss foot complete minimum 3 viewsStjuancarlos Lubin DPM Work Phone: Start: 75-11-4085Oppqf dip stick/tablet rgnt auto w/o microscopyBulk Order ProviderStart: 52-73-7790Kgz-scan artl krystal abdl/pel/scrot&/rpr orgn comMarlyn Hooper CARDIOPULMONARY TECHNICIAN.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 Phone: Start: 95-34-7816OE ABD LIVER VASCULARDontheresa Hooper CARDIOPULMONARY TECHNICIAN.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 Phone: Start: 72-42-0315Vodijoifvq exam chest 2 viewsTriston Riggs MD Work Phone: Start: 76-34-4830HfulmyroptmhxbrgWWSRMNOWO CLEMICHELLE Start: 06-85-5452Jg chest real time w/image documentationTriston Riggs MD Work Phone: Start: 58-51-1719Efhvhlkuhu exam chest 2 views Katerina Contreras PA-C Work Phone: Start: 02-09-9872Nubig dip stick/tablet rgnt auto w/o microscopyJoannie Suarez MD Work Phone: Start: 52-39-3452Lr chest real time w/image documentationTriston Riggs MD Work Phone: Start: 63-05-7015Vvntsfbubg exam chest 2 viewsLouise Cesar MD Work Phone: Start: 01-39-6521Bbucddougjhefrqixfgwxhtdby transoral diagnosticMalargelia Terrell MD Work Phone: Start: 41-75-3419QLUYUJHJQCD SKIN LESIONEmruel Bynum MD Work Phone: Start: 39-76-6233Uciphaovmr exam chest 2 viewsTriston Riggs MD Work Phone: Start: 95-37-2504Lgdoofgvfqih ophthalmic imaging retinaAnne-Marie Bajwa DO Work Phone: Start: 08-12-2024 End: 81-70-5466Fhumb medical xm&eval comprhnsv estab pt 1/>Early dry stage nonexudative age-related macular degeneration of both eyesJosintia Bajwa DO Work Phone: comment on above:Early dry stage nonexudative age- related macular degeneration of both eyes (Primary Dx); Dry eyes; Blepharitis of upper and lower eyelids of both eyes, unspecified type; Bilateral posterior capsular opacification; Chalazion of left upper eyelidStart: 36-98-1375Raqmqldk totalComment on above: Provided reference range is from 6-10 AM sample collection time.Cortisol Reference Range: 6-10 AM =4.8-19.5 ug/dL, 4-8 PM = 2.5-11.9 ug/dLStart: 00-09-9353Vv chest real time w/image documentationColin Oneil BECERRIL Work Phone: Start: 91-32-1860Wbvgyjlhwj exam chest 2 [facility] CARDIOPULMONARY TECHNICIAN.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 Phone: Start: 49-71-8549Myywbau serum plasma/whole blood Louise Cesar MD Work Phone: Start: 76-84-0123TY MANUAL DIFFUdchapis Cesar MD Work Phone: Start: 73-07-9645Bitj count misc body fluids w/differential countUdchapis Cesar MD Work Phone: Start: 47-80-4896GM BODY FLUIDUdchapis Cesar MD Work Phone: Start: 75-02-0309Oowwntpexh exam chest 2 viewsLouise Cesar MD Work Phone: Start: 80-32-5638Ksaeb 1996 panel - Serum or PlasmaXr [place] Work Phone: Start: 10-71-7229Ruyucpbioep rig transoral hypopharynx crv Carrie Terrell MD Work Phone: Start: 11-72-8123Wrjpryatvlr flx dx w/collj spec when pfrmdMalisalvador Terrell MD Work Phone: Start: 05-22-8197VswmyprnzjbVrcfpb Blades MD Work Phone: start: 05-94-0523Zs abdomen & pelvis w/contrast materialSue Terrell MD Work Phone: Start: 50-08-4443GLTLP ECOFIX CONTAINER PERFORMABLE Sue Terrell MD Work Phone: [phone]: 35-53-5156JXG EXTRA TUBESSue Terrell MD Work Phone: Start: 02-66-9297Gighl of calprotectin fecalSue Terrell MD Work Phone: [phone]: 71-58-1467Jmw agent det nucleic acid clostridium amp probeSue Terrell MD Work Phone: [phone]: 62-90-3581NGFM ELASTASE, FECALSue Terrell MD Work Phone: Start: 11-38-3401Uvhc ia giardiaSue Terrell MD Work Phone: Start: 61-58-2542Njao tthrc r-t 2d w/wom-mode compl spec&colr Surya Cesar MD Work Phone: Start: 60-51-7566QEWE ECHOUdchapis Cesar MD Work Phone: Start: 51-23-9395Qg diffusing capacityLouise Cesar MD Work Phone: Start: 02-71-5019Zzvqlj oxide gas determinationSwayne hospitalpeace Bravo APRN.[facility] Work Phone: Start: 38-80-4260Nznztcivv rspse spmtry pre&post- brncdilat admdarrion Bravo APRN.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 Phone: Start: 91-82-1241Pyfjaobkmy exam chest 2 viewsRuma Oshea PA-C Work Phone: Start: 21-38-0572Xkwgu 1996 panel - Serum or PlasmaXr HospStart: 43-77-8383Iq chest real time w/image documentationRenbobo Rosario MD Work Phone: start: 11-12-2023 End: 05-62-9754Olezfwfpfrdxz needle/cath pleura w/imagingRenbobo Rosario MD Work Phone: start: 28-17-0191Neybafwfoy spect multiple studies Ronaldo Flood MD, PhD Work Phone: Start: 10-82-5822Dmwaasakia exam chest 2 viewsRonaldo Flood MD, PhD Work Phone: Start: 67-27-7532Film Fast SmearDO [facility] Work Phone: Start: 44-33-1658KMO Specimen ProcessingDO [facility] Work Phone: Start: 25-96-1835Ccacfswqgnd observation [Identifier] in Unspecified specimen by Gram stainDO [facility] Work Phone: Start: 01-43-8364Wifn Fast SmearDO [facility] Work Phone: Start: 57-23-8483JPK Specimen ProcessingDO [facility] Work Phone: Start: 23-96-0116Pyhttneulsk observation [Identifier] in Unspecified specimen by Gram stainDO [facility] Work Phone: Start: 64-72-9780Sgkcif-up visitFollow-upKEVIN DINO MORAStart: 73-39-7581QYB screeningDR NONE LISTED REQUESTComment on above:Performed By: #### PSASC #### [facility] [address] [place] [address] Dr. Joni SandersScreening for malignant neoplasm of colonBenjamin Ball Other Plan of Treatment DateCare ActivityDetailAuthorStart: 18-04-4779AIfI/Tdap/Td Vaccines (4 - Td or Tdap)DTaP/Tdap/Td Vaccines (4 - Td or Tdap)[facility] HealthcareStart: 37-02-3443Yczxf microalbumin profileDTaP,Tdap,Td Vaccine (2 - Td or Tdap)[facility]: 02-03-7177Tpqlnhjvv for malignant neoplasm of colonNOMS HealthcareStart: 51-50-6995Cahla panelLipid ScreeningSt. Vincent Hospitaltart: 39-69-7765Iojmb panel Lipid ScreeningSt. [facility]: 37-48-1242Ubcriwf vaccinationTetanus: Every 10yrsOhioHealthStart: 03-52-6881Mbkpcvcx ScreeningDiabetes Screening [facility]: 40-31-2781Zkhczmsg ScreeningDiabetes ScreeningSt. [facility]: 39-88-3166Kpyqizhk ScreeningDiabetes ScreeningOhiohealth Southeastern Medical [facility] Start: 72-60-7739Sovtdxwg ScreeningDiabetes ScreeningSt. [facility]: 06-75-1539Odantuem ScreeningDiabetes ScreeningSt. [facility]: 11-13-2027 Diabetes ScreeningDiabetes ScreeningSt. [facility]: 21-63-4016Ulyjcktm ScreeningDiabetes ScreeningSt. [facility]: 82-57-3469Kdyzcftz Screening Diabetes ScreeningSt. [facility]: 95-41-0806Ojpkpthl ScreeningDiabetes ScreeningSt. [facility] Hospitaltart: 28-00-5916Gzynstxc ScreeningDiabetes Screening [facility]: 67-07-8208Thxlzipa ScreeningDiabetes ScreeningSt. [facility]: 77-56-6826Usxkgdqn ScreeningDiabetes ScreeningOhiohealth Southeastern Medical Center Start: 91-23-9018Lbgpbpwg ScreeningDiabetes ScreeningSt. [facility] Hospitaltart: 85-88-0519Kuvskhts ScreeningDiabetes ScreeningSt. [facility] Hospitalt[facility]: 05-29-2027 Diabetes ScreeningDiabetes ScreeningSt. [facility] Hospital[facility]: 48-80-2263Vhehekzz ScreeningDiabetes ScreeningSt. [facility] Hospitalt[facility]: 55-16-8159Oanjrlfz Screening Diabetes ScreeningSt. [facility]: 78-80-6081Ymdwwvsz ScreeningDiabetes ScreeningSt. [facility]: 83-36-3300Zuhxxiae ScreeningDiabetes Screening [facility]: 05-29-1525Vcqmzcet ScreeningDiabetes ScreeningSt. [facility]: 09-02-4014Aedbjwcb ScreeningDiabetes ScreeningOhiohealth Southeastern Medical Center Start: 45-98-6496Vxaafmaz ScreeningDiabetes ScreeningSt. [facility]: 24-47-2045Vockdxdk ScreeningDiabetes ScreeningSt. [facility]: 11-22-2026 Diabetes ScreeningDiabetes ScreeningSt. [facility]: 90-85-4346Jbwrynur ScreeningDiabetes ScreeningSt. [facility]: 24-40-9290Wqqclewyceh Syncytial Virus Immunization: Risk, 60-74 Risk, or 75+ (1 - 1-dose 75+ series)Respiratory Syncytial Virus Immunization: Risk, 60-74 Risk, or 75+ (1 - 1-dose 75+ series)[facility]: 11-53-2934Uyqyrxpevs measurement Serum CreatinineAultman Alliance Community Hospitalrt: 21-84-1992Imwvjy PCP Team Chronic Disease VisitAnnual PCP Team Chronic Disease VisitSt. [facility] Hospitaltart: 01-25-2026 Complete blood countHemoglobin/HematocritAultman Alliance Community Hospitalrt: 01-25-2026 Creatinine measurementSerum CreatinineAultman Alliance Community Hospitalrt: 65-55-7095Lkmsxy PCP Team Chronic Disease VisitAnnual PCP Team Chronic Disease VisitSt. [facility]: 43-39-0044TP Controlled (<130/80)BP Controlled (<130/80)[facility]: 23-13-9805DT Controlled (<130/80)BP Controlled (<130/80)[facility]: 99-20-0930Mfdfan PCP Team Chronic Disease VisitAnnual PCP Team Chronic Disease VisitSt. [facility] Hospitaltart: 91-80-4940CW Controlled (<130/80)BP Controlled (<130/80)[facility]rt: 79-40-1650Uqwfxv PCP Team Chronic Disease VisitAnnual PCP Team Chronic Disease VisitSt. [facility] Hospitaltart: 65-11-3795QO Controlled (<130/80)BP Controlled (<130/80)[facility]: 08-31-2025 End: 52-81-9682Oinuivo encounter procedureNOMS BAIRES DERMStart: 23-27-9540GU Controlled (<130/80)BP Controlled (<130/80)[facility]: 19-32-0029NF Controlled (<130/80)BP Controlled (<130/80)[facility]: 08-16-2025 End: 83-87-4400Bpagihg encounter procedureNO NB OPHTStart: 82-84-5402Icxkbm PCP Team Chronic Disease VisitAnnual PCP Team Chronic Disease VisitSt. [facility]: 41-15-4546Wagaln PCP Team Chronic Disease VisitAnnual PCP Team Chronic Disease VisitSt. [facility]: 10-35-0823RS Controlled (<130/80)BP Controlled (<130/80)[facility]: 05-21-2025 End: 11-04-4985Leyjxii encounter /05/2025 2:00 PM EST Office Visit Cardiology [address] [place] [address] [place] [address] [facility] [place] [address] 6 month follow upCardiologyComment on above:6 month follow up Start: 05-14-2025 End: 77-04-5309Myhrqyq encounter nkywxlrpk78/28/2025 8:00 AM EST Office Visit Gastroenterology [address] [address] Christie Palumbo APRN.TRUCK BODY BUILDER [address] [place] [address] Marlyn Hooper RefferedGastroenterologyComment on above: Marlyn Hooper RefferedStart: 55-64-7712Cygzro PCP Team Chronic Disease Visit Annual PCP Team Chronic Disease VisitSt. [facility] Hospitalt[facility]: 31-03-3145KT Controlled (<130/80)BP Controlled (<130/80)[facility]: 05-12-2025 End: 13-94-7960Hvxwvkf encounter wvuohetph89/26/2025 8:25 AM EST Office Visit Gastroenterology [address] [address] Luis Valentine MD [address] [address] Marlyn Hooper RefferedGastroenterologyComment on above:Marlyn Hooper RefferedStart: 54-51-5099Ijltftazg for malignant neoplasm of colon [facility]: 04-27-2025 End: 80-05-2821Gbutqmz encounter uzjoyrgoa61/11/2025 1:45 PM EST Office [facility] [address] [place] [address] Jamel Lubin DPM [address] [place] [address] [facility] [place] PodiatryStart: 04-14-2025 End: 60-73-8379Ooonbdg encounter uixwznxmn93/29/2025 4:15 PM EDT Procedure Visit [facility] [address] [place] [address] Jamel Lubin DPM [address] [place] [address] ArrivedNOMS [place] PodiatryComment on above:ArrivedStart: 04-07-2025 End: 30-09-1575Hhvfeee encounter ndmwnvgma46/22/2025 2:45 PM EDT Procedure Visit [facility] [address] [place] [address] Jamel Lubin DPM [address] [place] [address] [facility]OM[facility] [place] PodiatryStart: 03-25-2025 End: 67-76-1008Gcfoiqh encounter vyybuinad15/09/2025 11:15 AM EDT Office Visit [facility] [address] [place] [address] Jamel Lubin DPM [address] [place] [address] JAYME [place] PodiatryStart: 03-17-2025 End: 69-55-1509Nqblsqq encounter asbyozyxt40/01/2025 10:15 AM EDT Office [facility] [address] [place] [address] Jamel Lubin DPM [address] [place] [address] DANIEGrecia [place]orgaBuckeystown PodiatryStart: 03-12-2025 End: 37-24-1972Qtwhfvz encounter dadkufwpv29/26/2025 8:45 AM EDT Office Visit [facility] [place] [facility] [address] [place] [address] Jamel Lubin DPM [address] [place] [address] ArrivedRANJITHMS MayorgaBuckeystown PodiatryComment on above:ArrivedStart: 03-09-2025 End: 05-41-9562Nkpfgxm encounter kqawwwcui81/23/2025 1:15 PM EDT [place] [address] [place] [address] [place] [address] [address] [place], [place] [id number] Follow-upJose Antonio Hopper MDComment on above:Follow-upStart: 02-25-2025 End: 81-59-6304Mlwvcjn encounter pbyknpcke19/11/2025 10:20 AM EDT Office Visit [facility] [address] [address] Zabrina Suarez MD [address] [place] [address] Elevated serum creatinine [R79.89][facility] Main CampusComment on above:Elevated serum creatinine [R79.89]Start: 02-19-2025 End: 18-54-5858Kvvunli encounter fhsqooqmn82/05/2025 1:30 PM EDT Appointment Radiology [address] [address] Other ascites [R18.8]RadiologyComment on above:Other ascites [R18.8]Start: 76-95-0762ZYSXM-19 Vaccine ( season)COVID-19 Vaccine ()[facility] Start: 35-36-2622Ipfjbrobq vaccinationInfluenza Vaccine (#1)[facility] Start: 30-96-0470Afegtn PCP Team Chronic Disease VisitAnnual PCP Team Chronic Disease VisitSt. [facility]: 34-71-6218BN Controlled (<130/80)BP Controlled (<130/80)[facility]: 02-09-2025 End: 12-48-0877Vaqvcmsijdzub metabolic 2000 panel - Serum or PlasmaCOMPREHENSIVE METABOLIC PANEL Lab Routine Stage 3a chronic kidney disease (HCC) Expected: 02/09/2025, Expires: 05/10/2025P [facility] Work Phone: comment on above:Expected: 02/09/2025, Expires: 05/10/2025Start: 65-46-9422EK Controlled (<130/80)BP Controlled (<130/80) [facility]: 02-02-2025 End: 42-04-1955Xytzifvdh to same day surgery qjovaz9802/02/2025 9:30 AM EDT - 02/02/2025 11:20 AM EDT Surgery Angio [address] [place] [address] R ADIOLOGY SPECIALIST [address] [place] [address] TRANSCATHETER BIOPSY AngioComment on above:TRANSCATHETER BIOPSYStart: 50-50-8648Iopzyrdrar hospital visit by mfhfdipds21/19/2025 9:30 AM EDT Hospital Encounter Angio [address] [place] [address] MORTGAGE ANALYST [address] [place] [address] Elevated alkaline phosphatase level [R74.8]AngioComment on above:Elevated alkaline phosphatase level [R74.8]Start: 02-02-2025 End: 89-74-0468Dsjkhxnqvcira biopsyTRANSCATHETER BIOPSY Elevated alkaline phosphatase level 02/02/2025 9:30 AM EDTMC ANGIO DI1Hlsqj: 01-26-2025 End: 22-74-1613Ydgxqmr encounter luycfkpaa56/12/2025 1:00 PM EDT [place] [address] [place] [address] [place] [address] [place] [address] Follow-upJose Antonio Hopper MDComment on above:Follow-upStart: 67-97-9795Fshimq PCP Team Chronic Disease VisitAnnual PCP Team [facility] VisitSt[facility]: 01-11-2025 End: 57-14-6180Srvbyqq encounter yovspinlc29/28/2025 9:30 AM EDT Office Visit Pulmonary Medicine [address] [address] Triston Riggs MD [address] [place] [address] 4-6 weeksPulmonary MedicineComment on above:4-6 weeksStart: 01-08-2025 End: 25-42-6098Xwjhhna encounter exbzchkws57/25/2025 1:00 PM EDT Appointment Radiology [address] [place] [address] [place] [address] XRCHEST 2V FRONTAL/LATRadiologyComment on above:XR CHEST 2V FRONTAL/LATStart: 12-22-2024 End: 97-54-5279xrtvyaochj46/08/2025 6:00 PM EDT [facility] [address] [address] Marlyn Hooper APRN.TRUCK BODY BUILDER [address] [place] [address] Elevated alkaline phosphatase leveGastroenterologyComment on above:Elevated alkaline phosphatase leveStart: 12-22-2024 End: 97-07-7624Fhbjt 1 antitrypsin [Mass/volume] in Serum or Plasma BXNOL-8-HGOGLIEHJZP Lab Routine Elevated alkaline phosphatase level Expected: 12/22/2024, Expires: 03/23/2025[facility] ClinicComment on above:Expected: 12/22/2024, Expires: 03/23/2025Start: 12-22-2024 End: 43-16-2912KIN BY IFA WITH REFLEXANA BY IFA WITH REFLEX Lab Routine Elevated alkaline phosphatase level Expected: 12/22/2024, Expires: 03/23/2025[facility] ClinicComment on above:Expected: 12/22/2024, Expires: 03/23/2025Start: 12-22-2024 End: 18-83-1100Dxyqe metabolic 2000 panel - Serum or PlasmaBASIC METABOLIC PANEL Lab Routine Hypokalemia Expected: 12/22/2024, Expires: 03/23/2025P JOSE ANTONIO HOPPER MD [employer] Work Phone: comment on above:Expected: 12/22/2024, Expires: 03/23/2025Start: 12-22-2024 End: 91-30-4223GGC panel - Blood by Automated countCOMPLETE BLOOD COUNT Lab Routine Elevated alkaline phosphatase level Expected: 12/22/2024, Expires: 03/23/2025[facility] ClinicComment on above:Expected: 12/22/2024, Expires: 03/23/2025Start: 12-22-2024 End: 78-32-1944Liorgwg hepatitis differentiation between hepatitis B and C virus panel - Serum or PlasmaHEP REMOTE PANEL BL Lab Routine Elevated alkaline phosphatase level Expected: 12/22/2024, Expires: 03/23/2025[facility] Comment on above:Expected: 12/22/2024, Expires: 03/23/2025Start: 12-22-2024 End: 16-93-2341Wnrmaoiymqlcn metabolic 2000 panel - Serum or PlasmaCOMPREHENSIVE METABOLIC PANEL Lab Routine Elevated alkaline phosphatase level Expected: 12/22/2024,Expires: 03/23/2025[facility] ClinicComment on above:Expected: 12/22/2024, Expires: 03/23/2025Start: 12-22-2024 End: 71-75-5971Xyendsatgorhwdc IgM Ab [Units/volume] in Serum or PlasmaCMV IGM AB Lab Routine Elevated alkaline phosphatase level Expected: 12/22/2024, Expires: 03/23/2025[facility] ClinicComment on above:Expected: 12/22/2024, Expires: 03/23/2025Start: 12-22-2024 End: 58-20-3926Trovshya [Mass/volume] in Serum or PlasmaFERRITIN Lab Routine Elevated alkaline phosphatase level Expected: 12/22/2024, Expires: 03/23/2025 [facility] CenterComment on above:Expected: 12/22/2024, Expires: 03/23/2025Start: 12-22-2024 End: 23-38-0821Qzikf glutamyl transferase [Enzymatic activity/volume] in Serum or PlasmaGGT Lab Routine Elevated alkaline phosphatase level Expected: 12/22/2024, Expires: 03/23/2025[facility] ClinicComment on above:Expected: 12/22/2024, Expires: 03/23/2025Start: 12-22-2024 End: 83-57-2038Qyhv and Iron binding capacity panel - Serum or PlasmaIRON AND TIBC Lab Routine Elevated alkaline phosphatase level Expected: 12/22/2024, Expires: 03/23/2025[facility] ClinicComment on above:Expected: 12/22/2024, Expires: 03/23/2025Start: 12-22-2024 End: 86-90-5714Xbmxs kidney microsomal Ab [Titer] in Serum by Immunofluorescence LIVER-KIDNEY MICROSOME ANTIBODY, IGG Lab Routine Elevated alkaline phosphatase level Expected: 12/22/2024, Expires: 03/23/2025[facility] ClinicComment on above: Expected: 12/22/2024, Expires: 03/23/2025Start: 12-22-2024 End: 87-96-7918Nmjuezibpjoe Ab [Presence] in Serum by Immunofluorescence MITOCHONDRIAL M2 IGG SERUM Lab Routine Elevated alkaline phosphatase level Expected: 12/22/2024, Expires: 03/23/2025[facility] ClinicComment on above: Expected: 12/22/2024, Expires: 03/23/2025Start: 12-22-2024 End: 49-82-9047JA panel - Platelet poor plasma by Coagulation assayPROTHROMBIN TIME Lab Routine Elevated alkaline phosphatase level Expected: 12/22/2024, Expires: 03/23/2025[facility] ClinicComment on above:Expected: 12/22/2024, Expires: 03/23/2025Start: 12-22-2024 End: 48-80-3847Rpdznr muscle Ab [Presence] in SerumSMOOTH MUSCLE AB SCR Lab Routine Elevated alkaline phosphatase level Expected: 12/22/2024, Expires: 03/23/2025[facility] ClinicComment on above:Expected: 12/22/2024, Expires: 03/23/2025Start: 12-16-2024 End: 30-42-1589Rvdwkyb encounter procedureVascular SurgeryComment on above: Extremity cyanosis [R23.0]Start: 12-16-2024 End: 79-77-5586Grclqba encounter yoslftguz33/02/2025 12:30 PM EDT Office Visit Vascular Surgery [address] [place] [address] Extremity cyanosis [R23.0]Vascular SurgeryComment on above:Extremity cyanosis [R23.0]Start: 12-15-2024 End: 78-21-2030Eauwgpa encounter rblewpzps56/01/2025 11:15 AM EDT [place] [address] [place] [address] [place] [address] [place] [address] Follow-upJose Antonio Hopper MDComment on above:Follow-upStart: 12-03-2024 End: 21-40-4788bvukywfvaf93/19/2025 8:30 AM EDT [facility] [address] [address] Marlyn Hooper APRN.TRUCK BODY BUILDER [address] [place] [address] Elevated alkaline phosphatase leveGastroenterologyComment on above:Elevated alkaline phosphatase leveStart: 11-23-2024 End: 69-77-6020Yjgkfim encounter procedureRadiologyComment on above:Hepatomegaly [R16.0]Extremity cyanosis [R23.0]CXRH&P Established Patient VisitStart: 11-20-2024 End: 50-05-5782CxwdqfquncmzqxpcPBMZ Cardiology Routine Extremity cyanosis Expected: 11/20/2024, Expires: 11/20/2025[facility] ClinicComment on above: Expected: 11/20/2024, Expires: 11/20/2025Start: 11-20-2024 End: 06-15-7412Yahxyzh encounter jpfjcajer08/06/2025 9:00 AM EDT Office Visit Cardiology [address] [place] [address] [place] [address] [facility] [place] [address] PAD, LE with poor perfusionCardiologyComment on above:PAD, LE with poor perfusionStart: 11-19-2024 End: 34-59-9535Douzdqi encounter procedurePulmonary MedicineComment on above:f/u visit/Dr. KENNEDY will see pt.Start: 11-19-2024 End: 04-96-3383swkiejpgzd74/05/2025 10:30 AM EDT [facility] [address] [phone] Marlyn Hooper APRN.TRUCK BODY BUILDER [address] [place] [address] Elevated alkaline phosphatase leveGastroenterologyComment on above: Elevated alkaline phosphatase leveStart: 11-14-2024 End: 64-50-3131Zfrjyeqatoqym metabolic 2000 panel - Serum or PlasmaCOMPREHENSIVE METABOLIC PANEL Lab Routine Hepatomegaly Expected: 11/14/2024, Expires: 02/13/2025[facility] ClinicComment on above:Expected: 11/14/2024, Expires: 02/13/2025Start: 11-14-2024 End: 83-23-7917Aqxvqemiw [Mass/volume] in Serum or PlasmaMAGNESIUM Lab Routine Hypomagnesemia Expected: 11/14/2024, Expires: 02/13/2025[facility] ClinicComment on above:Expected: 11/14/2024, Expires: 02/13/2025Start: 11-13-2024 End: 84-21-0263Wovii hepatitis 2000 panel - SerumHEP ACUTE PANEL BL Lab Routine Hepatomegaly Expected: 11/13/2024, Expires: 02/12/2025P JOSE ANTONIO HOPPER MD [facility] Work Phone: comment on above:Expected: 11/13/2024, Expires: 02/12/2025Start: 11-13-2024 End: 40-40-4045NVBBOTJKOP HEPATITIS DIAGNOSTIC PANELAUTOIMMUNE HEPATITIS DIAGNOSTIC PANEL Lab Routine Hepatomegaly Expected: 11/13/2024, Expires: leveland ClinicComment on above:Expected: 11/13/2024, Expires: 02/12/2025 Start: 11-13-2024 End: 74-42-2089YTEJTF BLOODCOPPER BLOOD Lab Routine Hepatomegaly Expected: 11/13/2024, Expires: 02/12/2025[facility] ClinicComment on above:Expected: 11/13/2024, Expires: 02/12/2025Start: 11-13-2024 End: 62-26-3203Ceknulups C virus RNA [Units/volume] (viral load) in Serum or Plasma by BRYN with probe detectionHEPATITIS C VIRUS (HCV) RNA, QUANTITATIVE PCR, PLASMA/SERUM Lab Routine Hepatomegaly Expected: 11/13/2024, Expires: 02/12/2025 [facility] CenterComment on above:Expected: 11/13/2024, Expires: 02/12/2025Start: 11-13-2024 End: 82-49-1362Fqkz and Iron binding capacity panel - Serum or PlasmaIRON AND TIBC Lab Routine Hepatomegaly Expected: 11/13/2024, Expires: 02/12/2025[facility] ClinicComment on above:Expected: 11/13/2024, Expires: 02/12/2025Start: 11-13-2024 End: 27-81-3517Phhudxi encounter nkxzrexdg19/30/2025 1:00 PM EDT [place] [address] [place] [address] [place] [address] [address] [place], [place] [id number] Follow-upJose Antonio Hopper MDComment on above:Follow-upStart: 11-04-2024 End: 37-38-8986Beftsyx encounter procedureG[facility] Radiology CT ScanComment on above:CT ENTEROGRAPHY W IVCONStart: 10-23-2024 End: 28-38-6410Zhmtfbq encounter procedureGunnison Valley Hospital Draw StationComment on above:LABUS ABD RIGHT UPPER QUADRANTStart: 10-19-2024 End: 03-01-0888Kmirztq [Enzymatic activity/volume] in Serum or PlasmaAMYLASE Lab Routine Serositis (HCC) Expected: 10/19/2024, Expires: 01/18/2025[facility] ClinicComment on above:Expected: 10/19/2024, Expires: 01/18/2025Start: 10-19-2024 End: 21-77-9556WQE SUBCLASSES BLDIGG SUBCLASSES BLD Lab Routine Serositis (HCC) Expected: 10/19/2024, Expires: 01/18/2025[facility] Work Phone: comment on above:Expected: 10/19/2024, Expires: 01/18/2025Start: 10-19-2024 End: 26-12-5543Juuhah [Enzymatic activity/volume] in Serum or PlasmaLIPASE Lab Routine Serositis (HCC) Expected: 10/19/2024, Expires: 01/18/2025[facility] ClinicComment on above:Expected: 10/19/2024, Expires: 01/18/2025Start: 10-15-2024 End: 29-43-1976UQF PHOS ISOENZYM [facility] ClinicComment on above:Expected: 10/15/2024, Expires: 01/14/2025Start: 10-14-2024 End: 20-04-7640Xojvptf encounter procedurePulmonary MedicineComment on above:EST pt visit in H23 w/Dr Riggs post 10/02 procedureabdominal painStart: 10-13-2024 End: 88-68-8447Kgmnvyx encounter fhgyevrzc56/29/2025 1:00 PM EDT Appointment Radiology [address] [place] [address] [place] [address] CHEST XRAY RadiologyComment on above:CHEST XRAYStart: 10-02-2024 End: 64-66-6775Jygyrpfzxtxsa needle/cath pleura w/imagingTHORACENTESIS NEEDLE OR CATHETER ASPIRATION OF THE PLEURAL SPACE W IMAGING GUIDANCE Bronchiolar disease 10/02/2024 11:42 AM EDTMC PULM LAB M35Byxns: 10-02-2024 End: 20-85-3782Kjowycwhy to same day surgery qebukh1710/02/2024 10:30 AM EDT - 10/02/2024 11:30 AM EDT Surgery Admitting [address] [place] [id number] Merlyn Zavala MD [address] [place] [id number] THORACENTESIS NEEDLE OR CATHETER ASPIRATION OF THE PLEURAL SPACE W IMAGING GUIDANCEAdmittingComment on above:THORACENTESIS NEEDLE OR CATHETER ASPIRATION OF THE PLEURAL SPACE W IMAGING GUIDANCEStart: 10-02-2024 Subsequent hospital visit by cfloktnim97/18/2025 10:30 AM EDT Hospital Encounter Admitting [address] [address] Merlyn Zavala MD [address] [place] [address] Bronch iolar disease [J98.09]AdmittingComment on above: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] Start: 10-02-2024 End: 96-42-1575Qqdskteegttpr needle/cath pleura w/imagingTHORACENTESIS NEEDLE OR CATHETER ASPIRATION OF THE PLEURAL SPACE W IMAGING GUIDANCE Bronchiolar disease 10/02/2024 10:30 AM EDTMC PULM LAB E76Osmxk: 09-25-2024 End: 37-14-8262Rhnuhmq encounter procedureGastroenterologyComment on above: Esophageal dysphagia [R13.19]Start: 09-22-2024 End: 25-63-5192Cabvnpm encounter procedureVjuan francisco Hopper MDComment on above: Follow-upStart: 09-11-2024 End: 81-27-6025Mkkrp metabolic 2000 panel - Serum or PlasmaBASIC METABOLIC PANEL Lab Routine Hypokalemia Expected: 09/11/2024, Expires: 12/11/2024P JOSE ANTONIO HOPPER MD [facility] Work Phone: Comment on above:Expected: 09/11/2024, Expires: 12/11/2024Start: 09-11-2024 End: 37-98-4907QRK panel - Blood by Automated countCOMPLETE BLOOD COUNT Lab Routine Anemia, unspecified type Expected: 09/11/2024, Expires: 12/11/2024 [facility] CenterComment on above:Expected: 09/11/2024, Expires: 12/11/2024Start: 09-08-2024 End: 04-16-7948Tgawenjrl to same day surgery vuzufc0909/08/2024 10:30 AM EDT - 09/08/2024 11:30 AM EDT Surgery Admitting [address] [address] Roseann Rosario MD [address] [place], [place] [id number] THORACENTESIS NEEDLE OR CATHETER ASPIRATION OF THE PLEURAL SPACE W IMAGING GUIDANCEAdmittingComment on above:THORACENTESIS NEEDLE OR CATHETER ASPIRATION OF THE PLEURAL SPACE W IMAGING GUIDANCEStart: 09-08-2024 Subsequent hospital visit by [email or web address]/ 10:30 AM EDT Hospital Encounter Admitting [address] [address] Roseann Rosario MD [address] [place] [address] Bronchiola r disease [J98.09]AdmittingComment on above: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]Start: 09-08-2024 End: 47-84-2503Faqcosovafxen needle/cath pleura w/imagingTHORACENTESIS NEEDLE OR CATHETER ASPIRATION OF THE PLEURAL SPACE W IMAGING GUIDANCE Bronchiolar disease 09/08/2024 10:30 AM [facility] [id number]: 09-04-2024 End: 20-65-1989Qkjhqfx encounter phiorivjo51/21/2025 1:15 PM EDT [place] [address] [facility] [address] [place] [address] [facility] [place] [address] Follow-upVjuan francisco Hopper MDComment on above:Follow-upStart: 09-04-2024 End: 47-93-5040Ykigvgvml to same day surgery dkleqz6309/04/2024 10:30 AM EDT - 09/04/2024 11:30 AM EDT Surgery Admitting [address] [id number] James Enamorado MD [address] [place] [address] THORACENTESIS NEEDLE OR CATHETER ASPIRATION OF THE PLEURAL SPACE W IMAGING GUIDANCEAdmittingComment on above:THORACENTESIS NEEDLE OR CATHETER ASPIRATION OF THE PLEURAL SPACE W IMAGING GUIDANCEStart: 09-04-2024 Subsequent hospital visit by fnumkutxz71/21/2025 10:30 AM EDT Hospital Encounter Admitting [address] [address] James Enamorado MD [address] [id number] Bronchio lar disease [J98.09]AdmittingComment on above: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]Start: 09-04-2024 End: 27-85-1235Npalmqsacsnfq needle/cath pleura w/[facility] PULM LAB H82Tbvox: 09-01-2024 End: 04-98-6725Cwgjanypdouui metabolic 2000 panel - Serum or PlasmaCOMPREHENSIVE METABOLIC PANEL Lab Routine Recurrent 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 Expected: 09/01/2024,Expires: 12/01/2024P JOSE ANTONIO HOPPER MD [employer] Work Phone: comment on above:Expected: 09/01/2024, Expires: 12/01/2024Start: 09-01-2024 End: 00-98-5985Xgpkwqsog [Mass/volume] in Serum or PlasmaMAGNESIUM Lab Routine Recurrent 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 Expected: 09/01/2024, Expires: 12/01/2024 [facility] ClinicComment on above:Expected: 09/01/2024, Expires: 12/01/2024Start: 08-28-2024 End: 85-64-0970Rzxpsmafrnt [Units/volume] in Serum or PlasmaCP JOSE ANTONIO HOPPER MD [employer] Work Phone: comment on above:Expected: 08/28/2024, Expires: 11/27/2024Start: 08-27-2024 End: 65-53-0751Wfzxuwv encounter procedureNOMS SWS DERMComment on above:Arrived Start: 08-24-2024 End: 65-69-7069Gvnhvolcbycir metabolic 2000 panel - Serum or PlasmaCleveland ClinicComment on above:Expected: 08/24/2024, Expires: 11/23/2024Start: 08-24-2024 End: 56-10-1817Tizfcptap [Mass/volume] in Serum or PlasmaCleveland ClinicComment on above:Expected: 08/24/2024, Expires: 11/23/2024Start: 08-24-2024 End: 71-98-2955Edelaozvaxp [Units/volume] in Serum or PlasmaCleveland Clinic Foundation Work Phone: Comment on above:Expected: 08/24/2024, Expires: 11/23/2024Start: 08-24-2024 End: 46-31-3159Xqstbon encounter /10/2025 11:00 AM EDT Office Visit Gastroenterology [address] [address] Sue Terrell MD [address] [place] [address] DiarrheaGastroenterologyComment on above:DiarrheaStart: 08-21-2024 End: 02-70-4128Odcts metabolic 2000 panel - Serum or PlasmaBASIC METABOLIC PANEL Lab Routine Recurrent 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 Expected: 08/21/2024, Expires: 11/20/2024P JOSE ANTONIO HOPPER MD [facility] Work Phone: comment on above:Expected: 08/21/2024, Expires: 11/20/2024Start: 08-18-2024 End: 37-51-7932Qrsfsfk encounter fkyquafgt65/04/2025 2:00 PM EST Office Visit Thoracic Clinic [address] [place] [address] Della Barragan APRN.[employer] [address] [place] [address] Pleural EffusionThoracic ClinicComment on above:Pleural EffusionStart: 08-13-2024 End: 79-99-4345Moystvz encounter ulbskujeq49/27/2025 9:30 AM EST Appointment Radiology [address] [place] [address] CHEST XR RadiologyComment on above:CHEST XRStart: 08-12-2024 End: 74-37-5563Kaqwzhc encounter subvzujqf76/26/2025 3:00 PM EST Office Visit NOMS NB OPHT [address] [place] [address] Anne-Marie Bajwa DO [address] [place] [address] ArrivedNO OPHTComment on above:ArrivedStart: 07-28-2024 End: 01-06-8352Wpxwoewtd [Mass/volume] in Serum or PlasmaMAGNESIUM Lab Routine Hypomagnesemia Expected: 07/28/2024, Expires: 10/27/2024leveland ClinicComment on above:Expected: 07/28/2024, Expires: 10/27/2024Start: 07-24-2024 End: 969436-vejsnvepbmbkxv D3 [Mass/volume] in Serum or PlasmaVITAMIN D 25 HYDROXY Lab Routine Fatigue, unspecified type Expected: 07/24/2024, Expires: 10/23/2024[facility] hospitaland ClinicComment on above:Expected: 07/24/2024, Expires: 10/23/2024Start: 07-24-2024 End: 81-95-1384Emoatqypg (Vitamin B12) [Mass/volume] in Serum or PlasmaVITAMIN B12 Lab Routine Fatigue, unspecified type Expected: 07/24/2024, Expires: 10/23/2024P JOSE ANTONIO HOPPER MD [employer] Work Phone: comment on above:Expected: 07/24/2024, Expires: 10/23/2024Start: 07-24-2024 End: 39-80-3440Eqnotogj [Mass/volume] in Serum or PlasmaCORTISOL, SERUM Lab Routine Fatigue, unspecified type Expected: 07/24/2024, Expires: 10/23/2024 [facility] CenterComment on above:Expected: 07/24/2024, Expires: 10/23/2024Start: 07-21-2024 End: 20-83-4636Suyaw metabolic 2000 panel - Serum or PlasmaBASIC METABOLIC PANEL Lab Routine Anasarca Expected: 07/21/2024, Expires: 10/20/2024P JOSE ANTONIO HOPPER MD [facility] Work Phone: comment on above:Expected: 07/21/2024, Expires: 10/20/2024Start: 07-21-2024 End: 16-27-6034Hrsabsd encounter reitvehec73/04/2025 2:00 PM EST Office [place] [address] [facility] [place], [place] [id number] [place] [address] [facility] [place] [address] Follow-upJose Antonio Hopper MDComment on above:Follow-upStart: 07-20-2024 End: 59-51-8465AR Chest AP right lateral-decubitusXR CHEST 1V DECUBITUS RIGHT Radiology Routine Pleural effusion Expected: 07/20/2024, Expires: 08/19/2025 [facility] CenterComment on above:Expected: 07/20/2024, Expires: 08/19/2025Start: 07-20-2024 End: 41-25-3302VQ Chest PA and LateralXR CHEST 2V FRONTAL/LAT Radiology Routine Pleural effusion Expected: 07/20/2024, Expires: 08/19/2025[facility] Work Phone: Comment on above:Expected: 07/20/2024, Expires: 08/19/2025Start: 07-20-2024 End: 92-62-9920Mhwbaxh encounter armgwanjl95/03/2025 1:00 PM EST Office Visit Pulmonary Medicine [address] [place] [address] Triston Riggs MD [address] [place] [address] Katerina Contreras PA-C [address] [place] [address] H&P Established PatientPulmonary Medicine Comment on above:H&P Established PatientStart: 06-22-2024 End: 68-67-4395MJLW FLUID CELL COUNTBODY FLUID CELL COUNT Lab Routine Pleural effusion Pleuritis Lymphocytic colitis Pericardial effusion (noninflammatory) Interstitial pulmonary disease (HCC) Expected: 06/22/2024, Expires: 09/21/2024 [facility] CenterComment on above:Expected: 06/22/2024, Expires: 09/21/2024Start: 06-22-2024 End: 65-21-8384CBBC CYTOMETRY FOR LEUKEMIA/LYMPHOMA (FCLL)FLOW CYTOMETRY FOR LEUKEMIA/LYMPHOMA (FCLL) Lab Routine Pleural effusion Pleuritis Lymphocytic colitis Pericardial effusion (noninflammatory) Interstitial pulmonary disease (HCC) Expected: 06/22/2024, Expires: 09/21/2024leveland ClinicComment on above: Expected: 06/22/2024, Expires: 09/21/2024Start: 06-22-2024 End: 23-77-8804Faupurr [Mass/volume] in Body fluidGLUCOSE, BODY FLUID Lab Routine Pleural effusion Pleuritis Lymphocytic colitis Pericardial effusion (noninflammatory) Interstitial pulmonary disease (HCC) Expected: 06/22/2024, Expires: 09/21/2024leveland ClinicComment on above:Expected: 06/22/2024, Expires: 09/21/2024Start: 06-22-2024 End: 55-08-3356Zgetvnn dehydrogenase [Enzymatic activity/volume] in Body fluid LACTATE DEHYDROGENASE, BODY FLUID Lab Routine Pleural effusion Pleuritis Lymphocytic colitis Pericardial effusion (noninflammatory) Interstitial pulmonary disease (HCC) Expected: 06/22/2024, Expires:09/21/2024[facility] Comment on above:Expected: 06/22/2024, Expires: 09/21/2024Start: 06-22-2024 End: 03-38-7590Nfmherjodzfqs needle/cath pleura w/imagingTHORACENTESIS NEEDLE OR CATHETER ASPIRATION OF THE PLEURAL SPACE W IMAGING GUIDANCE Bronchiolar disease 06/22/2024 10:15 AM [facility] PULM LAB N19Epjyn: 06-22-2024 End: 88-70-1537Srllczy encounter jomkippnj64/06/2025 9:00 AM EST Office Visit Pulmonary Medicine [address] [place] [address] Triston Riggs MD [address] [place] [address] NPVPulmonary MedicineComment on above:NPVStart: 74-40-0761Lmxvhrp Directive DiscussionAdvance Directive DiscussionSt. Vincent Hospitaltart: 01-01-2025Medicare Advantage Annual Wellness VisitMedicare Advantage Annual Wellness VisitSt. Vincent Hospitaltart: 06-12-2024 End: 26-06-5812Wbvufjo encounter uilvbqdfx30/27/2024 1:30 PM EST Office [place] [address] [place], [place] [phone] [place] [address] [facility] [place] [address] Follow-upJose Antonio Hopper MDComment on above:Follow-upStart: 06-01-2024 End: 28-94-9917Yedfmxi encounter ubytowbzt46/16/2024 12:30 PM EST Office Visit Rheumatology [address] [phone] Steffen Mccarty MD [address] [place], [place] [id number] 2mo f/uRheumatologyComment on above:2mo f/uStart: 05-26-2024 End: 80-65-5730Dpeoqmv encounter oopwmxvlo46/10/2024 4:30 PM EST Office Visit Gastroenterology [address] [address] Sue Terrell MD [address] [place], [place] [phone] Diarrhea Follow UpGastroenterologyComment on above:Diarrhea Follow Up Start: 05-20-2024 End: 30-87-6875Ckhoy metabolic 2000 panel - Serum or PlasmaBASIC METABOLIC PANEL Lab Routine Recurrent 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 Anasarca Expected: 05/20/2024, Expires: 5CP JOSE ANTONIO HOPPER MD [facility] Work Phone: comment on above:Expected: 05/20/2024, Expires: 08/19/2024Start: 05-19-2024 End: 58-56-4632Jnriikn encounter pyuabpmup56/03/2024 11:30 AM EST Office [place] [address] [place], [place] [address] [place] [address] [place] [address] Follow-upJose Antonio Hopper MDComment on above:Follow-upStart: 05-18-2024 End: 56-95-0573Tukndylf identified in Body fluid by CultureBODY FLUID CULTURE AND GRAM STAIN Microbiology Routine Pleural effusion Expected: 05/18/2024, Expires: 08/17/2024[facility] ClinicComment on above:Expected: 05/18/2024, Expires: 08/17/2024Start: 05-18-2024 End: 48-83-4674YXDLEJCD NON-[facility] HospitalComment on above:Expected: 05/18/2024, Expires: 08/17/2024Start: 05-18-2024 End: 30-00-6351EQKBY ACIDS PROFILE, [facility] Work Phone: Comment on above:Expected: 05/18/2024, Expires: 08/17/2024Start: 05-18-2024 End: 28-23-5296XOSC CYTOMETRY FOR LEUKEMIA/LYMPHOMA (FCLL)[facility] Comment on above:Expected: 05/18/2024, Expires: 08/17/2024Start: 05-18-2024 End: 14-29-6998Vprhsnhcfszby identified in Unspecified specimen by CultureAFB CULT + STAIN Microbiology Routine Pleural effusion Expected: 05/18/2024, Expires: 08/17/2024leveland ClinicComment on above:Expected: 05/18/2024, Expires: 08/17/2024Start: 05-18-2024 End: 41-89-2861Zvacwvx encounter ikzjtfntd60/02/2024 10:40 AM EST Office Visit Pulmonary Medicine [address] [place] [address] Louise Cesar MD [address] [place] [address] follow upPulmonary MedicineComment on above:follow upStart: 05-13-2024 End: 89-67-2739Diioqlf encounter fjhivdccu94/27/2024 11:30 AM EST Office [place] [address] [facility] [place], [place] [phone] [place] [address] [facility] [place] [address] Follow-upJose Antonio Hopper MDComment on above:Follow-upStart: 04-28-2024 End: 08-29-2237Pxparht encounter procedureOhiohealth Southeastern [facility] Center [facility] CenterComment on above:Diarrhea, unspecified type [R19.7]Start: 04-20-2024 End: 30-43-0500Ixmtbsyyze rkagfuboapco50/04/2024 11:59 PM EST Anesthesia Event [facility] End[facility] [address] [address] Silvino Henley APRN.CRNAOhiohealth Southeastern Medical Center Endoscopy [facility] CenterStart: 04-20-2024 End: 47-75-6621Vidzcxo encounter udgwzbywi99/04/2024 12:00 PM EST Office Visit Gastroenterology [address] [address] Sue Terrell MD [address] [place], [place] [id number] Diarrhea, unspecified type [R19.7]GastroenterologyComment on above: Diarrhea, unspecified type [R19.7]Start: 04-13-2024 End: 70-87-5850Eodlhgv encounter ioswnxkss03/28/2024 11:00 AM EDT Office Visit Rheumatology [address] [address] Steffen Mccarty MD [address] [place] [address] J90 (ICD-10-CM) - Pleural effusionRheumatologyComment on above:J90 (ICD-10-CM) - Pleural effusionStart: 03-30-2024 End: 60-35-2788Hluivll encounter yiukacido69/14/2024 9:30 AM EDT Office Visit Rheumatology [address] [address] Steffen Mccarty MD [address] [place] [address] J90 (ICD-10-CM) - Pleural effusionRheumatologyComment on above:J90 (ICD-10-CM) - Pleural effusionStart: 03-26-2024 End: 57-82-7194Qlnyqco encounter zefejnemj70/10/2024 2:30 PM EDT Appointment Cardiovascular Testing [address] [place] [address] Pericarditis, unspecified chronicity, unspecified type [I31.9]Cardiovascular TestingComment on above:Pericarditis, unspecified chronicity, unspecified type [I31.9]Start: 03-17-2024 End: 42-86-1901Uzfehbp encounter hlwyeecye94/01/2024 4:30 PM EDT Appointment Radiology [address] [place] [address] Interstitial pulmonary disease (HCC) [J84.9]RadiologyComment on above:Interstitial pulmonary disease (HCC) [J84.9]Start: 03-17-2024 End: 05-77-2750Qoyuppf encounter procedureThoracic SurgeryComment on above: Pleural effusionStart: 03-17-2024 End: 34-86-4877ysqamtwxky15/01/2024 1:15 PM EDT Procedure Pulmonary Lab [address] [place] [address] Pleural effusion [J90]; Interstitial pulmonary disease (HCC) [J84.9]Pulmonary LabComment on above: Pleural effusion [J90]; Interstitial pulmonary disease (HCC) [J84.9]Start: 03-17-2024 End: 64-87-6043Qlhptep encounter dksummlag01/01/2024 10:20 AM EDT Office Visit PULMONOLOGY [facility] [address] [place] [address] Louise Cesar MD [address] [place] [address] NEW Chronic cough pt + CXR + PFT'SPULMONOLOGY [facility] Comment on above:NEW Chronic cough pt + CXR + PFT'SStart: 03-17-2024 End: 28-30-4364Yytlsuq encounter zrrzaszze83/01/2024 9:15 AM EDT Appointment XRAY / RADIOLOGY [facility] [address] [place] [address] Chronic bronchitis, unspecified chronic bronchitis type (HCC) [O40XZTH / RADIOLOGY [facility]ITALComment on above:Chronic bronchitis, unspecified chronic bronchitis type (HCC) [L71Iddxu: 03-17-2024 End: 22-29-8198ztzgigttiyCBRGJTFPFWT LAB [facility]ITALOR HOSPITALComment on above:Chronic cough [R05.3]Pleural effusion [J90]; Interstitial pulmonary disease (HCC) [J84.9]Start: 14-10-6619Ecwkc-19 Vaccine ()Covid-19 Vaccine ()[facility]: 28-38-1125Ecuat-19 Vaccine ()Covid-19 Vaccine ()[facility]: 02-16-2024 Covid-19 Vaccine ( season)Covid-19 Vaccine () [facility]: 12-67-5389Fdkmdlwta vaccinationSt. Vincent Hospitalt[facility]: 02-12-2024 End: 94-50-0071Xzpte metabolic 2000 panel - Serum or PlasmaBASIC METABOLIC PANEL Lab Routine Primary hypertension Expected: 02/12/2024, Expires: 05/13/2024 [facility] CenterComcaro center on above:Expected: 02/12/2024, Expires: 05/13/2024Start: 02-12-2024 End: 49-21-4263LID panel - Blood by Automated countCOMPLETE BLOOD COUNT Lab Routine Primary hypertension Anemia, unspecified type Expected: 02/12/2024, Expires: 05/13/2024P [facility] ANTONIO [facility] Work Phone: comment on above:Expected: 02/12/2024, Expires: 05/13/2024Start: 02-12-2024 End: 17-73-3157Lcvwnxzti [Mass/volume] in Serum or PlasmaMAGNESIUM Lab Routine Primary hypertension Hypomagnesemia Expected: 02/12/2024, Expires: 05/13/2024 [facility] CenterComment on above:Expected: 02/12/2024, Expires: 05/13/2024Start: 02-12-2024 End: 59-92-0817Ixpzapm encounter jposymjkd83/28/2024 1:30 PM EDT [place] [address] [phone] [place] [address] [phone] follow up from Marcus Dial MDComment on above:follow up from [facility]: 02-12-2024 End: 04-79-1273Dinoswv encounter wdkvotlfo26/28/2024 10:45 AM EDT [place] [address] [place] [phone] [place] [address] [place] [address] Follow-upVrobylakeshiamoi Luigi MDComment on above:Follow-upStart: 02-04-2024 End: 64-86-1672Qadjiuu encounter procedureRADIO GENERAL HILLCREST MCComment on above:Recurrent 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 [J90]Start: 01-15-2024 End: 25-01-5274Ddxym metabolic 2000 panel - Serum or PlasmaBASIC METABOLIC PANEL Lab Routine Recurrent 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 Expected: 01/15/2024, Expires: 04/15/2024P [facility] Work Phone: comment on above:Expected: 01/15/2024, Expires: 04/15/2024Start: 01-15-2024 End: 72-26-6624Rvtcbbw encounter katjihpfy28/31/2024 1:00 PM EDT Office [place] [address] [place], [place] [phone] [place] [address] [place] [address] New PatientVrobyjosé manuel Hopper MDComment on above:New Patient Start: 01-06-2024 End: 63-54-5018Xjrtwep encounter procedureRADIO GENERAL HILLCREST HOSPComment on above:Recurrent 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 [J90]Start: 12-20-2023 End: 96-19-8283Itphzte encounter procedureRADIO GENERAL HILLCREST HOSPComment on above:Pleural effusionStart: 12-13-2023 End: 81-03-5454Mfcpqqy encounter procedureRADIO GENERAL HILLCREST HOSPComment on above:Pleural effusion [J90]Pleural effusionStart: 12-04-2023 End: 17-40-1558Scuzlhd encounter procedureRADIO GENERAL HILLCREST HOSPComment on above:Discharge follow upStart: 12-03-2023 End: 11-42-4643Rjljiff encounter procedureRADIO GENERAL HILLCREST MOBComment on above:Pleural effusionStart: 12-01-2023 End: 31-41-1902SZ Chest PA and LateralXR CHEST 2V FRONTAL/LAT Radiology Routine Surgery follow-up Expected: 12/01/2023, Expires: 12/23/2024[facility] Work Phone: Comment on above:Expected: 12/01/2023, Expires: 12/23/2024Start: 11-20-2023 End: 30-31-1101Fupehadem to same day surgery nnfuln0511/20/2023 5:43 PM EDT - 11/20/2023 9:17 PM EDT Surgery Admitting [address] [place] [address] Ronaldo Flood MD, PhD [address] [employer] [place] [address] THORACOSCOPY WITH PLEURAL ABRASION AdmittingComment on above:THORACOSCOPY WITH PLEURAL ABRASIONStart: 11-20-2023 Subsequent hospital visit by rzmsrgchy13/05/2024 5:43 PM EDT Hospital Encounter Admitting [address] [place] [address] Ronaldo Flood MD, PhD [address] [employer] [employer] [address] [place] [address] Pleural effusion [J90]AdmittingComment on above:Pleural effusion [J90]Start: 11-20-2023 End: 73-19-9577Aipjuttwlnpy w/dx bx of lung infiltrate unilatrlTHORACOSCOPY W/ DIAGNOSTIC BIOPSY(IES) OF LUNG NODULE(S) OR MASS(ES) UNILATERAL Pleural effusion Encounter for other preprocedural examination 11/20/2023 5:[address] [facility] VASStart: 11-20-2023 End: 81-77-1887Mvtiocevxqpj w/pleurodesisTHORACOSCOPY WITH PLEURAL ABRASION Pleural effusion Encounter for other preprocedural examination 11/20/2023 5:[address] [facility] & VASStart: 11-20-2023 End: 27-59-4184Hitzhuheb to same day surgery fkdlma7211/20/2023 11:30 AM EDT - 11/20/2023 3:04 PM EDT Surgery Admitting [address] [place], [place] Ronaldo Flood MD, PhD [address] [place] [address] THORACOSCOPY WITH PLEURAL ABRASION AdmittingComment on above:THORACOSCOPY WITH PLEURAL ABRASIONStart: 11-20-2023 Subsequent hospital visit by aeinunvxa63/05/2024 11:30 AM EDT Hospital Encounter Admitting [address] [place] [address] Ronaldo Flood MD, PhD [address] [place] [address] Pleural effusion [J90]AdmittingComment on above:Pleural effusion [J90]Start: 11-20-2023 End: 05-85-6421Illfhowlgeox w/dx bx of lung infiltrate unilatrlTHORACOSCOPY W/ DIAGNOSTIC BIOPSY(IES) OF LUNG NODULE(S) OR MASS(ES) UNILATERAL Pleural effusion Encounter for other preprocedural examination 11/20/2023 11:30 AM [facility] CT & VASStart: 11-20-2023 End: 33-89-8184Kvzqvnytmenu w/pleurodesisTHORACOSCOPY WITH PLEURAL ABRASION Pleural effusion Encounter for other preprocedural examination 11/20/2023 11:30 AM [facility] & VASStart: 11-12-2023 End: 29-66-7591pntqokebueLfejvhkmr MedicineComment on above:Pleural effusion [J90]Start: 11-12-2023 End: 35-40-3601Tixojcy encounter procedureRadiologyComment on above:PRE-OP Pleural effusion [J90]-or- SM 11/20/23AnesthesiaStart: 11-12-2023 End: 54-16-0030gvlcthxxpkIxnodkqcjjZpuvrbv on above:PRE-OPStart: 10-28-2023 End: 90-05-9359qWDN in Platelet poor plasma by Coagulation assayACTIVATED PARTIAL THROMBOPLASTIN TIME Lab STAT Pleural effusion Encounter for other preprocedural examination Expected: 10/28/2023, Expires: 10/23/2024[facility] ClinicComment on above:Expected: 10/28/2023, Expires: 10/23/2024Start: 10-28-2023 End: 91-92-0940HPA W Auto Differential panel - BloodCOMPLETE BLOOD COUNT AND DIFFERENTIAL Lab STAT Pleural effusion Encounter for other preprocedural ex amination Expected: 10/28/2023, Expires: 10/23/2024[facility] ClinicComment on above:Expected: 10/28/2023, Expires: 10/23/2024Start: 10-28-2023 End: 73-16-1237Tllnplxvalffx metabolic 2000 panel - Serum or PlasmaCOMPREHENSIVE METABOLIC PANEL Lab STAT Pleural effusion Encounter for other preprocedural examination Expected: 10/28/2023, Expires: 10/23/2024[facility] ClinicComment on above:Expected: 10/28/2023, Expires: 10/23/2024Start: 10-28-2023 End: 13-11-5828PWLMLKI BLOOD TYPECONTAYLOR [facility] BLOOD TYPE Blood Bank STAT Pleural effusion Encounter for other preprocedural examination Expected: 10/28/2023, Expires: 10/23/2024[facility] ClinicComment on above:Expected: 10/28/2023, Expires: 10/23/2024Start: 10-28-2023 End: 62-51-7282EIW COMPLETEECG COMPLETE ECG STAT Pleural effusion Encounter for other preprocedural examination Expected: 10/28/2023, Expires: 10/23/2024 [facility] CenterComment on above:Expected: 10/28/2023, Expires: 10/23/2024Start: 10-28-2023 End: 28-23-7400EZOW DIFFUSION CAPACITY (DLCO)LUNG DIFFUSION CAPACITY (DLCO) PFT STAT Pleural effusion Encounter for other preprocedural examination Expected: 10/28/2023, Expires: 11/22/2024[facility] ClinicComment on above:Expected: 10/28/2023, Expires: 11/22/2024Start: 10-28-2023 End: 74-08-2708JD Heart Perfusion W multiple states of exerciseNM CARDIAC PERF STRESS/EXERCISE Radiology STAT Pleural effusion Encounter for other preprocedural examination Expected: 10/28/2023, Expires: 11/22/2024[facility] CenterComment on above:Expected: 10/28/2023, Expires: 11/22/2024Start: 10-28-2023 End: 20-14-4501GI panel - Platelet poor plasma by Coagulation assayPROTHROMBIN TIME Lab STAT Pleural effusion Encounter for other preprocedural examination Expected: 10/28/2023, Expires: 10/23/2024levelunc medical center ClinicComment on above: Expected: 10/28/2023, Expires: 10/23/2024Start: 10-28-2023 End: 75-38-8015KGTBPRVJWK WITH DILATOR IF OBSTRUCTEDSPIROMETRY WITH DILATOR IF OBSTRUCTED PFT STAT Pleural effusion Encounter for other preprocedural ex amination Expected: 10/28/2023, Expires: 11/22/2024[facility] Work Phone: Comment on above:Expected: 10/28/2023, Expires: 11/22/2024Start: 10-28-2023 End: 75-20-5810MCYUJHDDZSGXUF AUREUS & MRSA SCREEN, PCR, NASALSTAPHYLOCOCCUS AUREUS & MRSA SCREEN, PCR, NASAL Lab STAT Pleural effusion Encounter for other preprocedural examination Expected: 10/28/2023, Ex[facility]: [facility]2024[facility]Expected: 10/28/2023, Expires: 01/27/2024Start: 10-28-2023 End: [id number] AND SCREEN,30 DAYTYPE AND SCREEN,30 DAY Blood Bank STAT Pleural effusion Encounter for other preprocedural examination Expected: 10/28/2023, Expires: 10/23/2024[facility]Expected: 10/28/2023, Expires: 10/23/2024Start: 10-28-2023 End: [id number], DIPSTICK ONLYURINALYSIS, DIPSTICK ONLY Lab STAT Pleural effusion Encounter for other preprocedural examination Expected: 10/28/2023, Expires: 10/23/2024[facility]:Expected: 10/28/2023, Expires: 10/23/2024Start: 10-28-2023 End: [id number] Chest PA and LateralXR CHEST 2V FRONTAL/LAT Radiology STAT Pleural effusion Encounter for other preprocedural examination Expected: 10/28/2023, Expires: 5[facility]:Expected: 10/28/2023, Expires: 11/22/2024Start: 10-24-2023 End: 09-13-7542Qaowsqb encounter kfuesqlly96/09/2024 12:00 PM EDT Office [facility] [address] [id number] Ronaldo Flood MD, PhD [address] [facility] [address] [place] [address] pleural effusionThoracic ClinicComment on above: pleural effusionStart: 26-59-0240Odue Fast CultureAcid Fast CultureClermont County Hospitaltart: 78-21-8266Gjez Fast CultureAcid Fast Culture [facility]: 31-10-3038Kzwrgvn Directive Discussion Advance Directive DiscussionSt. Vincent Hospitaltart: 28-16-5638Mxoogjpnxv Health ScreeningBehavioral Health ScreeningSt. Vincent Hospitaltart: 92-05-6746IUSXI-19 Vaccine ( season)COVID-19 Vaccine ( season)[facility] Start: 86-58-5844Creqn-19 Vaccine ( season)Covid-19 Vaccine ( season)[facility]: 47-10-2673Rgxlzqlxf vaccinationOhSt. Vincent Hospital Start: 02-11-2023 End: 50-15-5360Svcywpu encounter jzrbibhhs54/28/2023 1:15 PM EDT Office Visit [facility] [address], [place] [phone] Margie Edouard DO [address] [place] [address] [facility] SurgeonsStart: 01-14-2023 End: 24-12-4073Nagviid encounter jlefehmhd79/31/2023 1:15 PM EDT Office Visit [facility] [address] [facility], [place] [phone] Margie Edouard, DO [address] [facility] [place] [address] [facility] SurgeonsStart: 11-19-2022 End: 26-67-8183Sjkegdh encounter pgvblvbuw67/05/2023 1:30 PM EDT Office Visit [facility] [address] [facility], [place] [phone] Margie Edouard, DO [address] [place] [address] [facility] Orthopedic SurgeonsStart: 10-08-2022 End: 42-82-2743Bigdsqr encounter scffyiowa97/24/2023 Office Visit Orthopedic Surgery Margie Edouard, DO [address] [place] [address] [facility] SurgeonsStart: 02-15-2022 Influenza vaccinationSequential Influenza Vaccine (#1)[facility]: 18-86-6377GOASM-19 Vaccine (4 - Booster for Pfizer series)COVID-19 Vaccine (4 - Booster for Pfizer series)[facility]: 99-67-9591ZSGYA-19 Vaccine (4 - Pfizer series)COVID-19 Vaccine (4 - Pfizer series)[facility]: 07-05-2021 COVID-19 Vaccine (5 - Booster)COVID-19 Vaccine (5 - Booster)[facility]: 39-36-0900Hasyfadgi vaccinationSequential Influenza Vaccine (#1)[facility]: 07-01-2020 End: 29-79-9332Ckacdp Visit07/01/2020 Office Visit Orthopedic Surgery Nena Huff, DO [address] [place] [facility] [place] [address] [phone] [facility] Orthopedic SurgeonsStart: 19-20-8693Hlwvurzrr vaccination given Sequential Influenza Vaccine (#1)[facility] SystemStart: 71-29-6483Peksphjehe20/14/2020 Office Visit Orthopedic Surgery Karthik Calloway MD [address] [place] [address] [phone] [facility] Start: 82-67-2765Ieanfsdoc vaccination givenSEQUENTIAL INFLUENZA VACCINE (#1) [facility]: 88-17-1860Zyurilptbtvaim of herpes zoster vaccineZoster Vaccines (2 of 2)[facility] Health SystemStart: 09-52-9300Ivmdtkmp Vaccine (2 of 2)Shingrix Vaccine (2 of 2)[facility]: 63-23-3067Ktbot microalbumin profile DTaP,Tdap,Td Vaccine (1 - Tdap)[facility]: 10-13-3055Vyczkuiqxx 07/30/2017 Office Visit Orthopedic Surgery Karthik Calloway MD [address] [place] [address] [phone] [facility] SurgeonsStart: 10-86-3833Wkdtoxipq vaccinationSEQUENTIAL INFLUENZA VACCINE (#1)[facility] Work Phone: Start: 03-95-4774JCMBIVEWPB INFLUENZA VACCINE (#1) SEQUENTIAL INFLUENZA VACCINE (#1)[facility] Work Phone: Start: 52-29-3191Zgss risk assessmentFalls Risk AssessmentOhioHealthStart: 48-73-2928Lmbfocazugia vaccinationPNEUMOCOCCAL VACCINE AGE 65+ (1 of 2 - PCV13)[facility] Work Phone: Start: 46-46-1794VRASOWBLSPHP VACCINE AGE 65+ (1 of 2 - PCV13)PNEUMOCOCCAL VACCINE AGE 65+ (1 of 2 - PCV13)[facility] Work Phone: Start: 79-39-8396Ogvjutijt B Vaccine (1 of 3 - Risk 3- dose series)Hepatitis B Vaccine (1 of 3 - Risk 3-dose series)[facility] Start: 37-82-6142HDU Vaccine (1 - 1-dose 60+ series)RSV Vaccine (1 - 1-dose 60+ series)[facility]: 37-10-9396GUR Vaccine (1 - Risk 60-74 years 1-dose series)RSV Vaccine (1 - Risk 60-74 years 1-dose series)[facility]: 08-20-5670Tyemhn vacc, scZOSTER VACCINEOhioUniversity Hospitals Health System Work Phone: Start: 35-68-7535Vmhyougod for malignant neoplasm of colonSt. Anthony's HospitalStart: 17-15-9766Ppmlshik ScreeningDiabetes ScreeningSt. Vincent Hospitaltart: 92-85-6043Abnavjtey for malignant neoplasm of colonOhiohealth Southeastern Medical Center Start: 84-46-9585Gdxeq panelLipid ScreeningSt. Vincent Hospitaltart: 1970 Hepatitis A Vaccine (1 of 2 - Risk 2-dose series)Hepatitis A Vaccine (1 of 2 - Risk 2-dose series)[facility]: 63-19-4467Zsyhg microalbumin profile DTaP,Tdap,Td Vaccine (1 - Tdap)[facility]: 23-92-5826Tgpdxm PCP Team Chronic Disease VisitAnnual PCP Team Chronic Disease VisitSt. Vincent Hospitaltart: 36-11-2854Qqtwrrk ScreeningAnxiety ScreeningSt. Vincent Hospitaltart: 94-47-8820JK Controlled (<130/80)BP Controlled (<130/80)[facility]: 1968 Depression ScreeningDepression ScreeningSt. Vincent Hospitaltart: 1969 Hepatitis C antibody, confirmatory testHepatitis C ScreeningOhioHealthStart: 22-06-7186Neciiygxh C screeningHepatitis C ScreeningOhioHealthStart: 1967 COVID-19 Vaccine (1 of 2)COVID-19 Vaccine (1 of 2)[facility] HospitalStart: 1963 Adolescent depression screening assessmentDepression Screening (PHQ9)[facility] Start: 77-67-7501Crlloecznf screening using PHQ-9 (Patient Health Questionnaire 9) scoreOhioHealthStart: 61-26-9632NMGNL-19 Vaccine (1)COVID-19 Vaccine (1) [facility]: 08-61-4030Pgayctb and physical examination, annual for [facility] VisitOhioHealthStart: 09-27-1954Medicare Wellness Visit Medicare Wellness VisitOhioHealthStart: 05-13-7345HsnxrcqjrwoFRDNHHZQGBT [facility] Work Phone: Start: 07-43-7505Ywyw risk assessmentFalls Risk AssessmentOhioHealthStart: 77-23-2333Wnngoiqfd C antibody, confirmatory test HEPATITIS C SCREENINGOhioHealthStart: 15-19-0420Mypexoon specific antigen measurementPSA LevelOhioHealthStart: 06-62-5596Ojoabozrj for malignant neoplasm of colonOhioHealthStart: 97-15-2904SEUYZLH EVERY [address]RT[address]ANUS EVERY [address] [facility] Work Phone: Start: 1950 End: 95-58-7288GUMBJCJAG C SCREENINGHEPATITIS C SCREENINGOhSt. Vincent Hospital Work Phone: Start: 73-72-4314Cstvqkywa colonoscopyCOLONOSCOPY [facility] Work Phone: Start: 1950 End: 10-14-7438Akeljym vaccinationOhioHealthAlbumin [Mass/volume] in Body fluid ALBUMIN, BODY FLUID Lab Routine Pleural effusion Ordered: 07/20/2024leveland ClinicComment on above:Ordered: 07/20/2024lbumin [Mass/volume] in Body fluid ALBUMIN, BODY FLUID Lab Routine Pleural effusion Ordered: 07/20/2024[facility] ClinicComment on above:Ordered: 07/20/2024ODY FLUID CELL COUNTBODY FLUID CELL COUNT Lab Routine Pleural effusion Ordered: 07/20/2024[facility] ClinicComment on above:Ordered: 07/20/2024omprehensive metabolic 1999 panel - Serum or Plasma [facility] NorthComprehensive metabolic 1999 panel - Serum or PlasmaPremier Health Miami Valley Hospital NorthCT Chest W contrast [facility] End: 93-59-8933XL Chest W contrast IVCT CHEST W IVCON Radiology Routine Interstitial pulmonary disease (HCC) 1 Occurrences starting 03/17/2024 until 04/16/20[facility] Work Phone: Comment on above:1 Occurrences starting 03/17/2024 until 04/16/2025T Chest W contrast IVCT CHEST W IVCON Radiology Routine Interstitial pulmonary disease (HCC) 03/17/2024 4:02 PM EDTClevelunc [facility] End: 46-64-3087GJ Chest WO contrastCT CHEST WO IVCON Radiology Routine Pleural effusion Lung nodule 1 Occurrences starting 05/18/2024 until 06/17/2025leveland ClinicComment on above:1 Occurrences starting 05/18/2024 until 06/17/2025 End: 98-90-5533RC Small bowel W contrast PO and W contrast IVCT ENTEROGRAPHY W IVCON Radiology Routine Other ascites Generalized abdominal pain 1 Occurrences starting 10/21/2024 until 11/20/20[address] HospitalComment on above:1 Occurrences starting 10/21/2024 until 11/20/2025 End: 02-26-8590WfpmbqjiqpouxrpnVJGB Cardiology Routine Pericarditis, unspecified chronicity, unspecified type 1 Occurrences starting 03/17/2024 until 03/17/2025 [facility] CenterComment on above:1 Occurrences starting 03/17/2024 until 03/17/2025 End: 51-35-1112TRB DIAGNOSTICEGD DIAGNOSTIC Endoscopy Routine Diarrhea, unspecified type 1 Occurrences starting 04/20/[address] [place] [address] Work Phone: Comment on above:1 Occurrences starting 04/20/2024 until 04/20/2025 End: 59-13-2691IWZ DIAGNOSTICEGD DIAGNOSTIC Endoscopy Routine Esophageal dysphagia 1 Occurrences starting 08/24/2024 until 08/24/2025[facility] Comment on above:1 Occurrences starting 08/24/2024 until 08/24/2025FAT, FECAL QUALFAT, FECAL QUAL Lab Routine Other ascites Generalized abdominal pain Ordered: [address] [place] [address] Work Phone: Comment on above:Ordered: 10/21/2024 End: 25-95-7591Lgejikjj sigmoidoscopy studyCOLONOSCOPY DIAGNOSTIC Endoscopy Routine Diarrhea, unspecified type 1 Occurrences starting 04/20/2024 until 5CUniversity Hospitals Conneaut Medical CenterComment on above:1 Occurrences starting 04/20/2024 until 04/20/2025FLOW CYTOMETRY FOR LEUKEMIA/LYMPHOMA (FCLL) PERFORMABLEFLOW CYTOMETRY FOR LEUKEMIA/LYMPHOMA (FCLL) PERFORMABLE Lab Routine Pleural effusion 05/18/2024 12:52 PM [facility] HospitalFL[facility] CYTOMET[facility] FOR LEUKEMIA/LYMPHOMA (FCLL) PERFORMABLEFLOW CYTOMETRY FOR LEUKEMIA/LYMPHOMA (FCLL) PERFORMABLE Lab Routine Pleural effusion Pleuritis Lymphocytic colitis Pericardial effusion (noninflammatory) Interstitial pulmonary disease (HCC) Ordered:06/22/2024 [facility] CenterComment on above:Ordered: 06/22/2024Lactate dehydrogenase [Enzymatic activity/volume] in Body fluidLACTATE DEHYDROGENASE, BODY FLUID Lab Routine Pleural effusion Ordered: [address] [place] [address] Work Phone: Comment on above:Ordered: 07/20/2024Lactate dehydrogenase [Enzymatic activity/volume] in Body fluidLACTATE DEHYDROGENASE, BODY FLUID Lab Routine Pleural effusion Ordered: [address] [place] [address] Clinic Comment on above:Ordered: 07/20/2024 End: 48-97-3526Zfjiv stiffness by US.transient elastographyUS ELASTOGRAPHY LIVER Radiology Routine Hepatomegaly 1 Occurrences starting 11/13/[address] [place], [place] [address]Comment on above:1 Occurrences starting 11/13/2024 until 12/13/2025Liver stiffness by US.transient elastographyUS ELASTOGRAPHY LIVER Radiology Routine Hepatomegaly 11/23/2024 3:05 PM EDTCleveland ClinicMANUAL DIFFERENTIAL, BODY FLUIDMANUAL DIFFERENTIAL, BODY FLUID Lab Routine Pleural effusion 05/18/2024 12:52 PM [facility] End: 71-33-9451AZYLSU OXIDE, EXHALEDNITRIC OXIDE, EXHALED PFT Routine Chronic cough Pleural effusion 1 Occurrences starting 01/06/2024 until 02/04/2025 [facility] Work Phone: Comment on above:1 Occurrences starting 01/06/2024 until 02/04/2025pH of Body fluidPH BODY FLUID Lab Routine Pleural effusion Ordered: 5C[facility] ClinicComment on above:Ordered: 07/20/2024PH PLEURAL FLUID (FOR USE OUTSIDE OF [facility])PH PLEURAL FLUID (FOR USE OUTSIDE OF [facility]) Lab Routine Pleural effusion Ordered: 5C[facility] ClinicComment on above:Ordered: 07/20/2024Protein [Mass/volume] in Body fluidPROTEIN, BODY FLUID Lab Routine Pleural effusion Ordered: [address] [place] [address] ClinicComment on above:Ordered: 07/20/2024Protein [Mass/volume] in Body fluidPROTEIN, BODY FLUID Lab Routine Pleural effusion Ordered: [address] [place] [address] ClinicComment on above:Ordered: 07/20/2024Protein/Creatinine [Mass Ratio] in UrinePROTEIN / CREATININE RATIO Lab Routine Elevated serum creatinine 10/15/2024 10:09 AM EDT [facility] Work Phone: RF Guidance for transjugular biopsy of Liver-- W contrast IVIR TRANSJUGULAR LIVER BX W/PRESS Radiology Routine Elevated alkaline phosphatase level Ordered: [address] [place] [address] Work Phone: comment on above:Ordered: 12/22/2024 End: 66-70-9844DFJ MINUTE WALKSIX MINUTE WALK PFT Routine Pleural effusion Encounter for other preprocedural examination 1 Occurrences starting 10/28/[address] [place], [place] [address]and ClinicComment on above:1 Occurrences starting 10/28/2023 until 11/26/2024 End: 00-20-4378NUJNPPFWYM WITH DILATOR IF OBSTRUCTEDSPIROMETRY WITH DILATOR IF OBSTRUCTED PFT Routine Chronic cough Pleural effusion 1 Occurrences starting 01/06/[address] [place] [address] ClinicComment on above:1 Occurrences starting 01/06/2024 until 02/04/2025SPIROMETRY WITH DILATOR IF OBSTRUCTED SPIROMETRY WITH DILATOR IF OBSTRUCTED PFT Routine Chronic cough Pleural effusion 03/17/2024 8:07 AMEDTCBet[facility]da North Hospital Work Phone: SURGICAL PATHOLOGYC[facility] Work Phone: comment on above:Release Upon Ordering for 1 Occurrences starting 04/28/2024, 1 completedTissue Pathology biopsy report [facility] Work Phone: Comment on above:Release Upon Ordering for 1 Occurrences starting 09/25/2024, 1 completedUA DIP, URINE (POC)UA DIP, URINE (POC) Lab Routine Screening for genitourinary condition 1 Occurrences starting [address] [place] [address] Work Phone: comment on above:1 Occurrences starting 10/15/2024 End: 06-38-2294CK Abdomen RUQUS ABD RIGHT UPPER QUADRANT Radiology Routine Elevated alkaline phosphatase level 1 Occurrences starting 10/15/[address] [place] [address] Work Phone: Comment on above:1 Occurrences starting 10/15/2024 until 11/14/2025US Abdomen RUQUS ABD RIGHT UPPER QUADRANT Radiology Routine Elevated alkaline phosphatase level 10/23/2024 2:18 PM [facility] Work Phone: End: 73-35-1447MH Abdomen RUQUS ABD RIGHT UPPER QUADRANT Radiology Routine Hepatomegaly 1 Occurrences starting 11/13/[address] [place] [address] Comment on above:1 Occurrences starting 11/13/2024 until 12/13/2025US Abdomen RUQUS ABD RIGHT UPPER QUADRANT Radiology Routine Hepatomegaly 11/23/2024 3:05 PM [facility] Work Phone: us Chest limitedUS CHEST (POC) H23 USE ONLY Imaging Diagnostic Routine Pleural effusion Pleuritis Lymphocytic colitis Pericardial effusion (noninflammatory) Interstitial pulmonary disease (HCC) Ordered: [address] [place] [address] Work Phone: Comment on above:Ordered: 06/22/2024US Heart TransthoracicPrem[facility] Health [facility] End: 32-59-5445SO Lower extremity artery - bilateralPVR LEG [facility] Vascular Lab Routine Extremity cyanosis 1 Occurrences starting 11/20/2024 until11/20/2025 [facility] CenterComment on above:1 Occurrences starting 11/20/2024 until 11/20/2025 End: 61-57-1106PH Lower extremity veins - bilateralUS LEG VEIN DVT [facility] Vascular Lab Routine Extremity cyanosis 1 Occurrences starting 11/20/2024 until 6CUniversity Hospitals Conneaut Medical CenterComment on above:1 Occurrences starting 11/20/2024 until 11/20/2025 End: 42-73-6821ED Vein - bilateralUS VENOUS INCOMPETENCY [facility] Vascular Lab Routine Extremity cyanosis 1 Occurrences starting 11/20/2024 until 6CBethesda North Hospital Work Phone: Comment on above:1 Occurrences starting 11/20/2024 until 11/20/2025 End: 45-75-9239IW.doppler Abdominal vesselsUS ABD LIVER VASCULAR Radiology Routine Other ascites 1 Occurrences starting 02/17/2025 until 03/19/2026 [facility] Work Phone: comment on above:1 Occurrences starting 02/17/2025 until 03/19/2026 End: 01-18-0570FJ.doppler Unspecified body regionUS DOPPLER COMPLETE Radiology Routine Other ascites 1 Occurrences starting 02/17/2025 until 03/19/2026 [facility] CenterComment on above:1 Occurrences starting 02/17/2025 until 03/19/2026 End: 30-82-4197RC Chest PA and LateralXR CHEST 2V FRONTAL/LAT Radiology Routine Follow-up exam 1 Occurrences starting 11/29/[address] [place] [address] Work Phone: Comment on above:1 Occurrences starting 11/29/2023 until 12/28/2024XR Chest PA and LateralXR CHEST 2V FRONTAL/LAT Radiology Routine Surgery follow-up 11/29/2023 2:19 PM [facility] Work Phone: XR Chest PA and LateralXR CHEST 2V FRONTAL/LAT Radiology Routine Follow-up exam 12/03/2023 12:25 PM [facility] Work Phone: XR Chest PA and LateralXR CHEST 2V FRONTAL/LAT Radiology Routine Pleural effusion 12/13/2023 1:18 PM [facility] Work Phone: XR Chest PA and LateralXR CHEST 2V FRONTAL/LAT Radiology Routine Pleural effusion 12/20/2023 1:13 PM [facility] Work Phone: End: 31-97-1727NW Chest PA and LateralXR CHEST 2V FRONTAL/LAT Radiology Routine Pleural effusion 1 Occurrences starting 01/06/[address] [place] [address] Work Phone: Comment on above:1 Occurrences starting 01/06/2024 until 02/04/2025XR Chest PA and LateralXR CHEST 2V FRONTAL/LAT Radiology Routine Recurrent 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 01/06/2024 1:09 PM [facility] Work Phone: End: 20-57-4495CH Chest PA and LateralXR CHEST 2V FRONTAL/LAT Radiology Routine Pleural effusion 1 Occurrences starting 02/04/2024 until 03/05/2025[facility] Work Phone: Comment on above:1 Occurrences starting 02/04/2024 until 03/05/2025XR Chest PA and LateralXR CHEST 2V FRONTAL/LAT Radiology Routine Chronic bronchitis, unspecified chronic bronchitis type (HCC) 03/17/2024 8:41 AM [facility] Work Phone: End: 50-17-4283RO Chest PA and LateralXR CHEST 2V FRONTAL/LAT Radiology Routine Pleural effusion 1 Occurrences starting 10/28/2024 until 6CBethesda North Hospital Work Phone: Comment on above:1 Occurrences starting 10/28/2024 until 11/26/2025[facility] Immunizations Immunization DateImmunizationNotesCare DbzqswtuRzzwdnkz19-63-3783ypdhigesa, high dose seasonal, preservative-freeJose Antonio Hopper MD Work Phone: [facility] Fbfwft91-06-1307nmaymword, seasonal, injectableJose Antonio Hopper MD Work Phone: [facility] Gcimcd68-54-8884sbpcvsubein syncytial virus (RSV) vaccine, adjuvanted (AREXVY)Jose Antonio Hopper MD Work Phone: [facility] Uvgnif00-06-4343tmksnow toxoid, reduced diphtheria toxoid, and acellular pertussis vaccine, adsorbedJose Antonio Hopper MD Work Phone: [facility] Nergyj03-63-8569qxjyirywk virus vaccine, unspecified formulationJose Antonio Hopper MD Work Phone: [place] Bpaugq79-33-5464ZKDYS-94 mRNA, Comirnaty (Pfizer)[facility]03-30-2021COVID-19 original vaccine, age 12+ yr, monovalent (PFIZER-BIONTECH - PURPLE TOP)Jose Antonio Hopper MD Work Phone: [place] Rdhvlc88-63-1651WGEKG-02 mRNA, Comirnaty (Pfizer)DO [facility] Work Phone: [facility]03-08-2021COVID-19 original vaccine, age 12+ yr, monovalent (PFIZER-BIONTECH - PURPLE TOP) Jose Antonio Hopper MD Work Phone: [place] Prpdom21-37-1302FTBBM-24 mRNA, Comirnaty (Pfizer)DO [facility] Work Phone: [facility]11-23-2020influenza virus vaccine, split virus (incl. purified surface antigen)Yuli Mariscal Other [employer] Other 174810-39-2494ivtprrwch virus vaccine, unspecified formulationDO [facility] Work Phone: [facility]11-23-2020Seasonal trivalent influenza vaccine, adjuvanted, preservative freeJose Antonio Hopper MD Work Phone: cUniversity [facility] Medical CenterZwnowo51-49-0988ndixjbn and diphtheria toxoids, adsorbed, preservative free, for adult use (5 Lf of tetanus toxoid and 2 Lf of diphtheria toxoid)Yuli Mariscal Other [facility]03-16-2019zoster vaccine recombinantJose Antonio Hopper MD Work Phone: [place] Dlphqk05-10-0133ysqqebi and diphtheria toxoids, adsorbed, preservative free, for adult use (5 Lf of tetanus toxoid and 2 Lf of diphtheria toxoid)Yuli Mariscal Other [facility]08-20-2018 pneumococcal polysaccharide vaccine, 23 valTamra Mariscal Other [facility]06-12-2017 pneumococcal conjugate vaccine, 13 valTamra Mariscal Other [facility] Payers DatePayer CategoryPayerPolicy [id number] [id number] (Managed Care)AETNA MEDICARE Member Subscriber Plan / Payer (Effective 2023-Present) Name: Sav Raymundoember ID: [id number] Relation to Subscriber: Self Name: BreanneSav Pepe Payer ID: 1 (NAIC) Type: PPO Address: [address] [place] [id number] 2022MedicaidAETNA MEDICARE ADVANTAGE [id number] 2016MedicareAETNA MANAGED MEDICARE AETNA MEDICARE PLAN (PPO) xxxxxxxx 2016-Presentxxxxxxxx [id number] 2016MedicareAETNA MANAGED MEDICARE AETNA MEDICARE PLAN (PPO) [id number] 2016Medicare [id number] 2016Medicare PPOAETNA MEDICARE PLAN (PPO) Member Subscriber Plan / Payer (Effective 2016-Present) Name: Sav Raymundo Relation to Subscriber: Self Name: Sav Raymundo Payer ID: 1 ([facility]) Type: Not on file Address: [address] [id number] 1960Medicare [id number] 2.0.1.197107.3.57[id number] 2.0.1.968659.3.57[id number] 2.0.1.144799.3.57[id number] 2.160.1.600736.3.57[id number] 2.0.1.150455.3.57[id number] 2.160.1.053884.3.57[id number] 2.0.1.328307.3.57[id number] 2.16.840.1.296020.3.57[id number] 2.16.840.1.157662.3.57[id number] 2.16840.1.831471.3.57[id number] 2.16.840.1.742341.3.57[id number] 2.840.1.318460.3.57[id number] 2.840.1.105718.3.57[id number] 2.840.1.597301.3.57[id number] 2.840.1.903963.3.57[id number] 2.840.1.073143.3.57[id number] 2.840.1.009383.3.57[id number] 2.16840.1.539042.3.579.2.1259MedicareMEBL4CPC 2.16.840.1.926300.3.249.13Unknown [id number] 2.16.840.1.3[id number] 2.16.840.1.7[id number] 2.16.840.1.841056.3.579.2.531 [id number] 2.16.840.1.731161.3.579.2.531 Social History DateTypeDetailFacilityStart: 07-30-2017 End: 82-87-1765Cddukaw smoking status NHISNever smokerSt. [facility]'s Hospital Work Phone: Start: 59-83-7036Oql Assigned At BirthNot on file [facility] Work Phone: Start: 07-01-2019 End: 91-50-2797Tynwstd intakeCurrent drinker of alcohol (finding)[facility] Start: 07-20-2020 End: 26-61-6425Wndhhcy use and exposureNever usedOhioHealthStart: 08-18-2022 End: 06-58-5811Gemhvfhs to SARS-CoV-2 (event)Not sureOhioHealthStart: 08-28-2022 End: 37-19-0465Iaxawku of Social functionOhiohealth Southeastern Medical Center Work Phone: Start: 08-28-2022 End: 39-46-6563Mzhifhc use panelOhiohealth Southeastern Medical Center Work Phone: Start: 28-99-2969Nsd Assigned At BirthUniversity Hospitals Lake West Medical Centertart: 12-05-2020 End: 65-85-4835Opbrbtyn Score (1-100), lower number is lower riskNot on file [facility] the [employer], gas, oil, or water company threatened to shut off services in your home in past 12MoNAvita Health System Work Phone: (I/We) worried whether (my/our) food would run out before (I/we) got money to buy more.Never trueSt. Vincent Hospitaltart: 01-15-2024 Alcohol Commentsocially, no drink since 4C[facility] hospital[facility] ClinicStart: 09-11-2024 SexMale (finding)[facility] [id number] identityIdentifies as male gender (finding)[facility] Medical Equipment Procedure CodeEquipment CodeEquipment Original TextEquipment IdentifierDates Cement 1 X 40 [place] Bone Single - [id number]: 35-49-8656Uywd Short Cemented Persona - [id number]: 67-57-7760Tonw Sz F Tib 5deg Nonpor Lt Persona - [id number] Start: 41-58-2984Buksvkw Sz9 Lt Nrw Ps Cmt Ccr Persona - Qcw4911Mldik: 32-23-4454Olrsqsy 32mm All Poly Persona - [id number]: 30-30-9186Nmyfjqxbo Surf Ef 6-9 14mm Lt Ps Vivacit-E Persona - [id number]: 69-19-2565Mkuw Short Cemented Persona - [id number]: 47-70-9456Nzojbjp 32mm All Poly Vivacit-E - [id number]: 16-09-4466Kxsxoqtsn Surf 14mm 6-9ef Rt Cps Ve Persona - [id number]: 81-35-6066Xjgcola Hv With Gentamicin CementStart: 83-96-7034Ycjj Sz F Tib 5deg Nonpor Rt Persona - [id number]: 05-80-7722Allgpjo Sz9 Rt Nrw Ps Cmt Ccr Persona - [id number]: 29-98-8800Zltges 1 X 40 [place] Bone Single - Kof1465Aqioy: 43-25-1507Qfgl Short Cemented Persona - [id number]: 08-23-2014 Stem Sz F Tib 5deg Nonpor Lt Persona - Xfb3734Uhwnp: 60-23-5861Gfdxims Sz9 Lt Nrw Ps Cmt Ccr Persona - [id number]: 56-41-2356Hlyqflr 32mm All Poly Persona - Lay2538Pwqlv: 90-51-0528Hhfswjzhb Surf Ef 6-9 14mm Lt Ps Vivacit-E Persona - Odn9414Kunxk: 15-28-4672Ykwj Short Cemented Persona - [id number]: 06-25-2016 Patella 32mm All Poly Vivacit-E - [id number]: 96-83-5577Duybuwmwm Surf 14mm 6-9ef Rt Cps Ve Persona - [id number]: 77-65-9865Xgygndo Hv With Gentamicin CementStart: 96-65-5319Buzj Sz F Tib 5deg Nonpor Rt Persona - [id number]: 86-32-0038Dxjjbrq Sz9 Rt Nrw Ps Cmt Ccr Persona - [id number]: 06-25-2016 Cement 1 X 40 Palacos Bone Single - Cjz2145Mxmgp: 98-11-2610Iamn Short Cemented Persona - Lcp8872Xotad: 07-10-1161Xare Sz F Tib 5deg Nonpor Lt Persona - Txk0250 Start: 12-87-0965Enlarqt Sz9 Lt Nrw Ps Cmt Ccr Persona - Qjy1773Miqts: 48-48-1012Ejgwdib 32mm All Poly Persona - Pbi0634Umtek: 14-19-1230Nsgcdtnod Surf Ef 6-9 14mm Lt Ps Vivacit-E Persona - Svq7236Wcyzs: 15-26-5804Ggnr Short Cemented Persona - [id number]: 18-20-1222Geqmgeb 32mm All Poly Vivacit-E - [id number]: 41-37-7765Dpvhsgftf Surf 14mm 6-9ef Rt Cps Ve Persona - [id number]: 81-46-2013Dnsujpq Hv With Gentamicin CementStart: 90-82-7082Wtbc Sz F Tib 5deg Nonpor Rt Persona - [id number]: 30-74-5140Rlbwjtb Sz9 Rt Nrw Ps [facility] Ccr Persona - [id number]: 79-83-3991Ohfjwq 1 X 40 Palacos Bone Single - [id number]_qheDlxcf: 93-22-3333Uaqc Short Cemented Persona - [id number]_jkp Start: 13-91-3607Vpwh Sz F Tib 5deg Nonpor Lt Persona - [id number]_rbhLsepi: 87-86-4042Hbjthhp Sz9 Lt Nrw Ps Cmt Ccr Persona - [id number]_cnaBmdir: 86-12-6513Majdjhw 32mm All Poly Persona - [id number]_rzwLtflu: 08-23-2014 Articular Surf Ef 6-9 14mm Lt Ps Vivacit-E Persona - [id number]_rakXtpai: 52-04-0258Fhet Short Cemented Persona - [id number]_punIzafl: 06-25-2016 Patella 32mm All Poly Vivacit-E - [id number]_pkePioef: 63-62-1278Dzirlfcwk Surf 14mm 6-9ef Rt Cps Ve Persona - [id number]_bhgNnzlb: 63-39-5365Cybaarg Hv With Gentamicin Ysbvpr605797_mwuPpvmy: 98-66-6631Kdym Sz F Tib 5deg Nonpor Rt Persona - [id number]_lspKnkhu: 86-62-7704Gxqfuux Sz9 Rt Nrw Ps Cmt Ccr Persona - [id number]_yzwHsyuk: 06-25-2016 Goals DatePatient GoalDesired Activity/StatePersonal health goal Functional Status MclwWphnbjhbpbRgwzhkIilwxocd33-04-4887Put you deaf, or do you have serious difficulty hearingNo 12/26/2023 4:30 PM EDT Rojas Cline RN [facility] 68-26-5405Zsz you blind, or do you have serious difficulty seeing, even when wearing glassesNo 12/26/2023 4:30 PM EDT Rojas Cline RN [facility] 08-13-3799Pz you have serious difficulty walking or climbing stairsNo 12/26/2023 4:30 PM EDT Rojas Cline RN [facility]07-11-2024Do you have difficulty dressing or bathingNo 12/26/2023 4:30 PM EDT [facility] HospitalFglchk46-65-2513Myiqpzg of a physical, mental, or emotional condition, do you have difficulty doing errands alone such as visiting a physician's office or shoppingNo 12/26/2023 4:30 PM EDT Rojas Cline RN [facility] Mental Status MoisCofiivxswlKlszuyKwwrsytp32-74-2433Ymbkyzr of a physical, mental, or emotional condition, do you have serious difficulty concentrating, remembering, or making decisionsNo 12/26/2023 4:30 PM EDT Rojas Cline RN [facility] Clinical Notes 08-28-2022 to 04-16-2025 Note Date & SysfFucdYdyjdfbo39-89-2215 [facility] History of Present illness Narrative* Jamel Doyle Michael, DPM - 04/14/2025 4:15 PM EDT Images from the original note were not included. Subjective Patient ID: Willie Raymundo is a 75 y.o. male who presents for Nail care/Wound check (Willie Raymundo is a 75 y.o. male. Established patient relates he was in [facility] for 6 days 04/02/2025,Cellulitis left foot to [...] lower extremity. Symptomatic onychodystrophy/mycosis multiple digits. Plan: [place] agreement for conservative and palliative nail care [...] understanding. Jamel Lubin DPM documented in this [facility]10-29-2025 Instructions* Patient Instructions* Jamel Lubin DPM - 04/14/2025 4:15 PM EDT Wound care measures as noted documented in this [facility]10-24-2025 Evaluation note* Diagnosis Onset Date Resolution Status Admit Date Anasarca acuteOctober 2024 9:31amAnemiaacuteOctober 2024 9:31amCellulitis acuteOctober 2024 9:31amChronic kidney diseaseacuteOctober 2024 9:31amCirrhosisacuteOctober 2024 9:31amEsophageal varicesacuteOctober 2024 9:31amPrimary hypertensionacuteOctober 2024 9:31am [facility] Work Phone: [phone] [facility] History of Present illness Narrative* Jamel Lubin DPM - 03/25/2025 11:15 AM [...] 5 days, followed by gradual transition to [employer] slip-on footwear with custom fabricated crest pad. [...] understanding. Jamel Lubin DPM documented in this [facility]10-09-2025 Instructions* Patient Instructions* Jamel Lubin DPM - 03/25/2025 11:15 AM EDT As noted documented in this [facility]10-08-2025 [facility]10-[facility]-20[facility] History of Present illness Narrative* Jamel [...] understanding. Jamel Lubin DPM documented in this encounterReynolds County General Memorial HospitalAbgrlifxwd06-89-1182 [facility]09-26-2025 History of Present illness Narrative* Jamel [...] and oriented. Pleasant disposition. Independently ambulatory wearing [employer] [place] slip-on footwear. Accompanied by his spouse, Eden. [...] understanding. Jamel Lubin DPM documented in this encounterReynolds County General Memorial HospitalVkazhmxzcm13-69-2458 History of Present illness Narrative* Zabrina Suarez MD - 02/25/2025 10:20 AM EDT [facility] SERVICE DATE: 02/25/2025 [...] 10 mg by mouth once daily. calcium ucn-lhz-X9-Zn-epic kaleidoscope analyst-kian 250 mg-40 mg- 125 unit-3.75mg tab Take [...] Jose Antonio Hopper MD documented in this encounterOhiohealth Southeastern Medical Center09-11-2025 [facility]-05-2025 History of Present illness Narrative* Nita Damon RT(R) - 02/19/2025 1:30 PM EDT Radiology [...] PATIENT PRESENTS WITH AN IMPLANTABLE OR ATTACHED TALENT SCOUT: No RADIOLOGY DEPARTMENT: Ultrasound PERIPHERAL IV DATA: Not applicable SIGNED BY: RT Lolly(R) February 19, 2025 2:26 PM documented in this encounterOhiohealth Southeastern Medical Center09-05-2025 [facility]08-12-2025 History of Present illness Narrative* Jose [...] 10 mg by mouth once daily. calcium owz-zre-A8-Zn-epic kaleidoscope analyst-kina 250 mg-40 mg- 125 unit-3.75mg tab Take [...] diaphragmatic excursion. Lungs clear to auscultation. Heart: Wilber normal. Precordium quiet. RRR. Normal HS with [...] 2025 TIME: 1:39 PM documented in this encounterOhiohealth Southeastern Medical Center08-12-2025 Evaluation note* Diagnosis Metabolic encephalopathy- Primary Stage 3a chronic kidney disease (HCC) Primary hypertension Unspecified essential hypertension Lymphocytic colitis Other and unspecified noninfectious gastroenteritis and colitis Generalized edema Edema Orthostatic hypotension Cramp and spasm Urge incontinence Elevated alkaline phosphatase level Other nonspecific abnormal serum enzyme levels documented in this encounter [facility]07-28-2025 History of Present illness Narrative* Triston Riggs MD - 01/11/2025 9:30 AM EDT Images from the original note were not included. [facility] CC: Persistent RIGHT pleural effusion Sav Raymundo is a 74 year old male sent by Dr. STEPHANE Cesar MD and Ronaldo Flood MD, PhD for evaluation of persistent RIGHT pleural effusion. My final recommendations will be communicated to the requesting health care provider by way of the shared medical record for internal providers or letterCG Scholara the [employer] for external providers. Assessment and Plan 1. [...] 10 mg by mouth once daily. calcium vmf-fqz-U6-Zn-epic kaleidoscope analyst-kian 250 mg-40 mg- 125 unit-3.75mg tab Take [...] 0.2 11/12/2024 Abs Neut 7.03 11/12/2024 Abs [place] 0.67 11/12/2024 Abs Eosin <0.03 11/12/2024 Abs [...] 36 % 39 80 (H) 80 (H) [place]%, BF % 6 Macro%, BF 64 - [...] with more than 50% of the total yspx-ib-hsax time of the visit in counseling / coordination of care. Triston Riggs M.D. Staff, Interventional Pulmonology. Pulmonary, Allergy & Critical Care Medicine [facility] documented in this encounterOhiohealth Southeastern Medical Center07-28-2025 [facility]07-25-2025 History of Present illness Narrative* Patricia [...] PATIENT PRESENTS WITH AN IMPLANTABLE OR ATTACHED TALENT SCOUT: No RADIOLOGY DEPARTMENT: General X-ray: Exam(s) Completed: Chest X-Ray PERIPHERAL IV DATA: Not applicable SIGNED BY: RT Cleveland(R) January 08, 2025 12:43 PM documented in this encounterOhiohealth Southeastern Medical Center07-25-2025 NoteU[facility]07-08-2025 Instructions* Patient Instructions* Marlyn Hooper APRN.CNP [...] procedure, and you can schedule it at [place] or the main campus by calling [phone]. - Additional blood work has been ordered to rule out autoimmune or viral causes of liver damage. You can complete this at [facility] or another lab location. We discussed your kidney health: - Your creatinine levels, which indicate kidney function, are continuing to rise. I recommend seeing a playground attendant (kidney specialist) to evaluate this further and assess your current use of water pills (torsemide). I have placed a referral for nephrology, and you can schedule an appointment by calling [phone]. Virtual visits may also be an option. We discussed your fluid retention and current medication regimen: - Your fluid retention is being managed with torsemide, but the dosing schedule is complex and may need adjustment. A playground attendant can help optimize this to protect your [...] any new concerns, and contact me through [facility] if needed. - I will review the biopsy and blood work results once they are available and contact you with nextsteps. Please let me know if you have any questions or concerns in the meantime. documented in this encounterOhiohealth Southeastern Medical Center07-08-2025 History of Present illness Narrative* Marlyn Hooper APRN.CNP - 12/22/2024 6:00 PM EDT VIRTUAL VISIT PROGRESS NOTE This is a virtual visit using [employer] Zoom Video Visit. It required patient- provider interaction for the medical decision making as documented below. I have communicated my name and active licensure. The patient's identity and physical location wereverified at the time of this visit. Either the patient or their legal financial service representative has been informed of the risks [...] despite evaluation by rheumatology, pulmonology, gastroenterology, and track car operator, as well as recent vascular testing. The [...] He is not currently followed by a playground attendant, but his creatinine has been rising. An [...] 50-60 lbs lost since his hospitalization at [facility] on 12/19/2022 for lower extremity swelling, [...] 10 mg by mouth once daily. calcium kjo-jbz-J9-Zn-epic kaleidoscope analyst-kian 250 mg-40 mg- 125 unit-3.75mg tab Take [...] isnot currently under the care of a playground attendant. - Referral to nephrology for further evaluation and management. - Provided patient with scheduling number for nephrology appointment. - Advised patient to monitor kidney function closely. I spent a total of 45 minutes on the date of the service which included preparing to see the patient, dlmf-ww-sfsa patient care, completing clinical documentation, counseling and educating the patient/family/caregiver, ordering medications, tests, or procedures, and communicating results to the raquel ent/family/caregiver Marlyn Hooper APRN.TRUCK BODY BUILDER documented in this encounterOhiohealth Southeastern Medical Center07-08-2025 [facility]07-01-2025 History of Present illness Narrative* Jose [...] 10 mg by mouth once daily. calcium tkc-gur-I7-Zn-epic kaleidoscope analyst-kian 250 mg-40 mg- 125 unit-3.75mg tab Take [...] diaphragmatic excursion. Lungs clear to auscultation. Heart: Wilber normal. Precordium quiet. RRR. Normal HS with [...] 2024 TIME: 11:34 AM documented in this encounterOhiohealth Southeastern Medical Center06-09-2025 Telephone encounter Note * Telephone Encounter - Jahaira Wood - 11/23/2024 1:48 PM EDT Received missed visit notes 11/20/24 and 11/10/24 records scanned in [facility] natalee Loya asst [facility]06-09-2025 Miscellaneous Notes* Telephone Encounter - Jahaira Wood - 11/23/2024 1:48 PM EDT Received missed visit notes 11/20/24 and 11/10/24 records scanned in Epic Jahaira Wood, windows server administrator documented in this encounterOhiohealth Southeastern Medical Center06-09-2025 History of Present illness Narrative* Triston Riggs MD - 11/23/2024 12:00 PM EDT Images from the original note were not included. [facility] CC: Persistent RIGHT pleural effusion Sav Raymundo is a 74 year old male sent by Dr. STEPHANE Cesar MD for evaluation of persistent RIGHT pleural effusion. My final recommendations will be communicated to the requesting health care provider by way of the shared medical record for internal providers or letter via the [employer] for external providers. Assessment and Plan 1. [...] He will complete course of oral antibiotics. [place], [place] is home care provider. He continues [...] 10 mg by mouth once daily. calcium aod-jsc-V5-Zn-epic kaleidoscope analyst-kian 250 mg-40 mg- 125 unit-3.75mg tab Take [...] UltraSens C-Reactive Protein <3.1 mg/L 13.2 (H) [facility] Reference Range & Units Most Recent 12/26/23 [...] 1.21 0.95 (L) 0.80 (L) 0.91 (L) [place]% % 7.6 11/12/24 13:30 11.7 12.9 7.3 7.6 Abs [place] <0.87 k/uL 0.67 11/12/24 13:30 0.80 1.03 [...] 36 % 39 80 (H) 80 (H) [place]%, BF % 6 Macro%, BF 64 - [...] with more than 50% of the total xhke-gj-vkhb time of the visit in counseling / coordination of care. Triston Riggs M.D. Staff, Interventional Pulmonology. Pulmonary, Allergy & Critical Care Medicine [facility] documented in this encounterOhiohealth Southeastern Medical Center06-09-2025 [facility]06-09-2025 History of Present illness Narrative* Karsten [...] PATIENT PRESENTS WITH AN IMPLANTABLE OR ATTACHED TALENT SCOUT: No RADIOLOGY DEPARTMENT: General X-ray: Exam(s) Completed: Chest X-Ray PERIPHERAL IV DATA: Not applicable SIGNED BY: RT Franca(R) November 23, 2024 12:31 PM documented in this encounterOhiohealth Southeastern Medical Center06-09-2025 [facility]06-06-2025 [facility]06-06-2025 History of Present illness Narrative* Zac Mendiola MD - 11/20/2024 9:23 AM EDT Images from the original note were not included. Heart, Vascular and Thoracic [facility] April Baltazar Department of Cardiovascular Medicine SECTION OF INTERVENTIONAL CARDIOLOGY OUTPATIENT VISIT DATE 11/20/2024 OUTPATIENT VISIT TYPE New PRIMARY CARE PHYSICIAN: Jose Antonio Hopper [address] [place] [address] REFERRING PHYSICIAN: No referring provider defined for this encounter. Recording using [employer] software for draft documentation of the visit was discussed with the patient/authorized financial service representative; all questions welcomed and answered. Patient/authorized financial service representative agreed to proceed HISTORY OF PRESENT [...] 10 mg by mouth once daily. calcium jpo-gts-H7-Zn-epic kaleidoscope analyst-kian 250 mg-40 mg- 125 unit-3.75mg tab Take [...] electronically signed by: BERT FITZPATRICK MD on Oct 5 2024 4:33PM EST IMPRESSION / PLAN AND [...] of Cardiovascular Medicine Heart, Vascular and Thor[facility] Office Office Pager [phone] documented in this encounterOhiohealth Southeastern Medical Center06-05-2025 [facility]06-05-2025 History of Present illness Narrative* Triston Riggs MD - 11/19/2024 3:28 PM EDT Images from the original note were not included. Respiratory [facility] CC: Persistent RIGHT pleural effusion Sav Raymundo is a 74 year old male sent by Dr. STEPHANE Cesar MD for evaluation of persistent RIGHT pleural effusion. My final recommendations will be communicated to the requesting health care provider by way of the shared medical record for internal providers or letter via the [employer] for external providers. Assessment and [...] CxR placed He will obtain CxR in [place] as need for perceived recurrence of effusion [...] Catheter not accessed 11/17, 11/18 or today. [facility], [place], [place] is home care provider. He continues [...] 10 mg by mouth once daily. calcium ewk-wxw-W7-Zn-epic kaleidoscope analyst-kian 250 mg-40 mg- 125 unit-3.75mg tab Take [...] UltraSens C-Reactive Protein <3.1 mg/L 13.2 (H) Latest Reference Range & Units Most Recent 12/26/23 [...] 1.21 0.95 (L) 0.80 (L) 0.91 (L) [place]% % 7.6 11/12/24 13:30 11.7 12.9 7.3 7.6 Abs [place] <0.87 k/uL 0.67 11/12/24 13:30 0.80 1.03 [...] 36 % 39 80 (H) 80 (H) [place]%, BF % 6 Macro%, BF 64 - [...] Pulmonology. Pulmonary, Allergy & Critical Care Medicine [facility] documented in this encounterOhiohealth Southeastern Medical Center06-05-2025 History of Present illness Narrative* Se Quinn RT(R) - 11/19/2024 1:45 PM [...] PATIENT PRESENTS WITH AN IMPLANTABLE OR ATTACHED TALENT SCOUT: No RADIOLOGY DEPARTMENT: General X-ray: Exam(s) Completed: Chest X-Ray PERIPHERAL IV DATA: Not applicable SIGNED BY: RT Dimitri(R) November 19, 2024 1:24 PM documented in this encounterOhiohealth Southeastern Medical Center06-05-2025 [facility]06-03-2025 Telephone encounter Note* Telephone Encounter - [...] with physician. She can be reached at [phone] She asked if a detailed voicemail can be left if somehow she misses the call [facility]06-03-2025 Miscellaneous Notes* Telephone Encounter - [...] with physician. She can be reached at [phone] She asked if a detailed voicemail can be left if somehow she misses the call documented in this encounterOhiohealth Southeastern Medical Center05-30-2025 History of Present illness Narrative* Jose Antonio Hopper MD - 11/13/2024 1:34 PM EDT PROGRESS NOTES Patient Name: Sav Raymundo SERVICE DATE: 11/13/2024 SERVICE TIME: 1:47 PM HPI: Mr. Raymundo is a 74 year old male who presents for Follow Up.Developed significant [facility],no abdominal pain MEDICATIONS: Current [...] 10 mg by mouth once daily. calcium usi-onc-Z7-Zn-epic kaleidoscope analyst-kian 250 mg-40 mg- 125 unit-3.75mg tab Take [...] diaphragmatic excursion. Lungs clear to auscultation. Heart: Wilber normal. Precordium quiet. RRR. Normal HS with [...] 2024 TIME: 1:47 PM documented in this encounterOhiohealth Southeastern Medical Center05-29-2025 [facility]05-28-2025 Miscellaneous Notes* Telephone Encounter - Xiomara Ly APRN.CNP - 11/11/2024 5:20 PM EDT Called pt to discuss symptoms. Advised that given reported rapid weight gain over the last 4-5 days, he should be evaluated in the ED to determine if inpatient management is appropriate for worseningsymptoms. Pt verbalized understanding. Xiomara Ly APRN.CURT documented in this encounterOhiohealth Southeastern Medical Center05-28-2025 Telephone encounter Note * Telephone Encounter - Xiomara Ly APRN.CNP - 11/11/2024 5:20 PM EDT Called pt to discuss symptoms. Advised that given reported rapid weight gain over the last 4-5 days, he should be evaluated in the ED to determine if inpatient management is appropriate for worseningsymptoms. Pt verbalized understanding. Xiomara Ly APRN.CNP [facility] Work Phone: 1(338) 702-675305-21-2025 NoteHNO ID: [id number] Author: CINTIA JOSHI RT(R) Service: Radiology Author [...] PATIENT PRESENTS WITH AN IMPLANTABLE OR ATTACHED TALENT SCOUT: No RADIOLOGY DEPARTMENT: CT; Exam(s) Completed: Enterography PERIPHERAL IV DATA: Not applicable SIGNED BY: RT Cachorro(R) November 04, 2024 1:24 [id number] NoteHNO ID: [id number] Author: DRAGAN LOPEZ CT Service: Radiology Author [...] COMPLETED: Yes ADDITIONAL EVENT DETAILS: N/A SIGNATURE: VALERIE ZELAYA PATIENT NAME: Sav Raymundo DATE: November 04, 2024 TIME: 2:57 PM PAGER/CONTACT [phone] History of Present illness Narrative* Riley Rowley [...] PATIENT PRESENTS WITH AN IMPLANTABLE OR ATTACHED TALENT SCOUT: No RADIOLOGY DEPARTMENT: Ultrasound PERIPHERAL IV DATA: Not applicable SIGNED BY: Riley Rowley RDMS, RVT October 23, 2024 2:13 PM documented in this encounterOhiohealth Southeastern Medical Center05-09-2025 NoteHNO ID: [id number] Author: RILEY ROWLEY RDMS, RVT Service: Radiology Author Type: [place] Type: Progress Notes Filed: 10/23/2024 14:13 Note [...] PATIENT PRESENTS WITH AN IMPLANTABLE OR ATTACHED TALENT SCOUT: No RADIOLOGY DEPARTMENT: Ultrasound PERIPHERAL IV DATA: Not applicable SIGNED BY: Riley Rowley RDMS, [place] October 23, 2024 2:13 [id number] Telephone encounter Note* Telephone Encounter - Jahaira Wood - 10/23/2024 10:20 AM EDT Received missed visit note from [facility] 10/14/24, record scanned in [employer] Jahaira Wood, windows server administrator [facility]05-09-2025 Miscellaneous Notes* Telephone Encounter - Jahaira Wood - 10/23/2024 10:20 AM EDT Received missed visit note from [facility] 10/14/24, record scanned in [employer] Jahaira Wood, windows server administrator documented in this encounterOhiohealth Southeastern Medical Center05-07-2025 Telephone encounter Note * Telephone Encounter - Xiomara Ly APRN.[facility] - 10/21/2024 12:23 PM EDT Called and spoke with pt and his . Ordered a CTe to rule out an IBD component behind symptoms, as well as a fecal fat stool test. Advised to keep appointment for liver ultrasound and to set up anappointment with hepatology for further evaluation. Pt and his understanding and agreeable to advisement. Xiomara Ly APRN.CNP [facility]05-07-2025 Miscellaneous Notes* Telephone Encounter - [...] advisement. Xiomara Ly APRN.CNP documented in this encounterOhiohealth Southeastern Medical Center05-01-2025 History of Present illness Narrative* Zabrina Suarez MD - 10/15/2024 9:20 AM EDT [facility] SERVICE DATE: 10/15/2024 [...] 1 tablet by mouth once daily. calcium xoe-cnf-I8-Zn-epic kaleidoscope analyst-kian 250 mg-40 mg- 125 unit-3.75mg tab Take [...] PHYSICIAN: Yuli Mariscal DO documented in this encounterOhiohealth Southeastern Medical Center05-01-2025 [facility]04-30-2025 Miscellaneous Notes* Telephone Encounter - Xiomara Ly APRN.CNP - 10/14/2024 4:00 PM EDT This concern was discussed and addressed at 10/14/24 appointment. Xiomara Ly APRN.CNP documented in this encounterOhiohealth Southeastern Medical Center04-30-2025 Telephone encounter Note * Telephone Encounter - Xiomara Ly APRN.CNP - 10/14/2024 4:00 PM EDT This concern was discussed and addressed at 10/14/24 appointment. Xiomara Ly APRN.CNP [facility] Work Phone: [phone] Instructions* Patient Instructions* Xiomara Ly APRN.CNP - 10/14/2024 3:28 PM EDT -Updated blood testing today -Consider liver US based on current alk phos level (once resulted) and breakdown of labs -Consult to nephrology for evaluation of elevated BUN, Cr, and decreased GFR. -F/U with Dr. Terrell in 3-6 months for further evaluation of esophageal motility unless above labs are abnormal; if so, will instruct pt on sooner follow-up documented in this encounterOhiohealth Southeastern Medical Center04-30-2025 History of Present illness Narrative* Xiomara Ly APRN.CNP - 10/14/2024 3:00 PM EDT SUBJECTIVE 74 year old male with lymphocytic colitis here for follow-up. Last visit 08/26/[address] Terrell. LAST PLAN (08/24/24): -treat and avoid constipation [...] swelling. -D/t slightly low albumin (3.8) Dr. Terrell started him on 65 g of additional [...] 10 mg by mouth once daily. calcium fph-cbd-D1-Zn-epic kaleidoscope analyst-kian 250 mg-40 mg- 125 unit-3.75mg tab Take [...] Cr, and decreased GFR. -F/U with Dr. Terrell in 3-6 months for further evaluation of esophageal motility unless above labs are abnormal; if so, will instruct pt on sooner follow-up I spent a total of 36 minutes on the date of the service which included preparing to see the patient, atpy-xd-wlyb patient care, completing clinical documentation, obtaining and/or reviewing separately obtained history, performing a medically appropriate examination, counseling and educating the pat ient/family/caregiver, and ordering medications, tests, or procedures. Xiomara Ly APRN.CNP 10/15/2024 9:00 AM documented in this encounterOhiohealth Southeastern Medical Center04-30-2025 [facility]04-30-20[facility] History of Present illness Narrative* Triston Riggs MD - 10/14/2024 1:04 PM EDT Images from the original note were not included. [facility] CC: Persistent RIGHT pleural effusion Sav Raymundo is a 74 year old male sent by Dr. STEPHANE Cesar MD for evaluation of persistent RIGHT pleural effusion. My final recommendations will be communicated to the requesting health care provider by way of the shared medical record for internal providers or letter via the [employer] Postal Service for external providers. Assessment and [...] did he have some sense of limitation. [facility], [place], [place] is home care provider. Since he [...] Raymundo is a 71 y/o, from the [facility], here for follow-up for pleural effusion. He [...] referred for pleurodesis to thoracic surgery in [facility], which he underwent inJune 2023. Though no pleural fluid analysis done, but pleural biopsy showed pleuritis. Post pleurodesis, he continued to have significant drainage, tunneled pleural catheter was placed. He was then hospitalized ( abdominal bloating ) -in [facility], and responded well to diuresis. He [...] other day) -Rheumatologic assessment done, workup negative, automobile relocation engineer has no evidence of any autoimmune disease -Off prednisone for the last 5 months -Off Plaquenil for the past 3 weeks -On diuretics, now on torsemide Interestingly, on further discussion, mostly with automobile relocation engineer, we have uncovered that he has been [...] 10 mg by mouth once daily. calcium apa-ieo-D6-Zn-epic kaleidoscope analyst-kian 250 mg-40 mg- 125 unit-3.75mg tab Take [...] 0.1 10/15/2024 Abs Neut 9.45 10/15/2024 Abs [place] 0.81 10/15/2024 Abs Eosin <0.03 10/15/2024 Abs [...] 36 % 39 80 (H) 80 (H) [place]%, BF % 6 Macro%, BF 64 - [...] Pulmonology. Pulmonary, Allergy & Critical Care Medicine [facility] documented in this encounterOhiohealth Southeastern Medical Center04-29-2025 History of Present illness Narrative* [...] PATIENT PRESENTS WITH AN IMPLANTABLE OR ATTACHED TALENT SCOUT: No RADIOLOGY DEPARTMENT: General X-ray: Exam(s) Completed: Chest X-Ray PERIPHERAL IV DATA: Not applicable SIGNED BY: RT [place](R) October 13, 2024 1:12 PM documented in this encounterOhiohealth Southeastern Medical Center04-29-2025 [facility]04-18-2025 [facility]04-18-2025 History of Present illness Narrative* Katerina [...] agreement. Katerina Contreras PA-C documented in this encounterOhiohealth Southeastern Medical Center04-11-2025 NoteQ3 Patient Name: Sav Raymundo Procedure Date: 09/25/2024 11:14 AM Date of : 1950 Admit Type: Outpatient Age: 74 Gender: Male Note Status: Finalized Attending MD: Shay Dennis , , [id number] Procedure: Upper GI endoscopy Indications: Dysphagia Providers: [...] by the physician, the nurse and the service unit operator in the pre-procedure area in the [...] Integrity. Impression: - Nor (more content not included)...[id number] Nurse Note* Obi Flower LPN - 09/25/2024 [...] MATERIAL: Procedure Discharge Instructions REFERRAL (RECOMMENDATION): None [facility]04-11-2025 Nurse Note* Obi Flower LPN [...] RN In Department: GASTROENTEROLOGY documented in this encounterOhiohealth Southeastern Medical Center04-11-2025 History and physical note * Shay Dennis MD - 09/25/2024 11:30 AM EDT ENDOSCOPY HISTORY AND PHYSICAL EXAM Ang E Breanne [id number] Subjective HPI: This is a 74 year [...] an EGD with dilation using a 60 Bahamian Keller dilator in April 2024 PAST ANESTHESIA [...] 1 tablet by mouth once daily. calcium pji-tye-F7-Zn-epic kaleidoscope analyst-kian 250 mg-40 mg- 125 unit-3.75mg tab Take [...] signed Shay Dennis MD 09/24/2024 4:08 PM [facility]04-11-2025 History and physical note* Shay Dennis MD - 09/25/2024 11:30 AM EDT ENDOSCOPY HISTORY AND PHYSICAL EXAM Sav Raymundo [id number] Subjective HPI: This is a 74 year [...] an EGD with dilation using a 60 Bahamian Keller dilator in April 2024 PAST ANESTHESIA [...] 1 tablet by mouth once daily. calcium glh-ent-D8-Zn-epic kaleidoscope analyst-kian 250 mg-40 mg- 125 unit-3.75mg tab Take [...] MD 09/24/2024 4:08 PM documented in this encounterOhiohealth Southeastern Medical Center04-11-2025 Nurse Note* Amrik Mast RN [...] By: Amrik Mast RN In Department: GASTROENTEROLOGY [facility]04-09-2025 Telephone encounter Note* Telephone Encounter - Jahaira Wood - 09/23/2024 11:59 AM EDT Received missed visit notes from [facility] Records scanned in [facility] Jahaira Wood, windows server administrator [facility]04-09-2025 Miscellaneous Notes* Telephone Encounter - Jahaira Wood - 09/23/2024 11:59 AM EDT Received missed visit notes from [facility] Records scanned in [facility] Jahaira Wood windows server administrator documented in this encounterOhiohealth Southeastern Medical Center04-04-2025 Nurse Note* Melinda Calderón RN [...] have family/friend present for procedure transport home:Patient/patient financial service representative was told that if they do [...] area. Any barriers to Patient learning: Patient/Patient Coal Shooter responded appropriately on phone. Type of instruction given: Verbal by telephone contact. Melinda Calderón RN [facility]04-04-2025 Nurse Note* Melinda Calderón RN [...] have family/friend present for procedure transport home:Patient/patient financial service representative was told that if they do [...] area. Any barriers to Patient learning: Patient/Patient Coal Shooter responded appropriately on phone. Type of instruction given: Verbal by telephone contact. Melinda Calderón RN documented in this encounterOhiohealth Southeastern Medical Center03-31-2025 Telephone encounter Note * Telephone Encounter - Andree Colby RN - 09/14/2024 12:56 PM EDT Left message on EVAN Campos's voicemail after d/w pleaural team. Pleurx is draining as expected. Stomach distention should not be a symptom of pleural drainage and may need to be further evaluated in GI or the ED if symptoms persists. [facility]03-31-2025 Miscellaneous Notes* Telephone Encounter - [...] - 09/14/2024 10:28 AM EDT Beth from [facility] called with an update. They have started draining on daily for pluerx catheter. They have been getting between 170 and 210 daily. Patient had SOB on and denies SOB other days. Stomach is distended Beth can be reached at [phone] documented in this encounterOhiohealth Southeastern Medical Center03-31-2025 Telephone encounter Note * Telephone Encounter - Amanda Brooks - 09/14/2024 10:28 AM EDT Beth from [facility] called with an update. They have started draining on daily for pluerx catheter. They have been getting between 170 and 210 daily. Patient had SOB on and denies SOB other days. Stomach is distended Beth can be reached at [phone] [facility]03-25-2025 [facility]03-21-2025 History of Present illness Narrative* Jose [...] mouth once daily. 90 tablet 0 calcium okr-gpp-O3-Zn-epic kaleidoscope analyst-kian 250 mg-40 mg- 125 unit-3.75mg tab Take [...] diaphragmatic excursion. Lungs clear to auscultation. Heart: Wilber normal. Precordium quiet. RRR. Normal HS with [...] steroid instillation through Pig tail tube on 3/ - POTASSIUM CHLORIDE ER 20 MEQ TABLET,EXTENDED RELEASE 2. Hypokalemia - ICD9: 276.8, ICD10: E87.6 - POTASSIUM CHLORIDE ER 20 MEQ TABLET,EXTENDED RELEASE - BASIC METABOLIC PANEL 3. Lymphocytic colitis - ICD9: 558.9, ICD10: K52.832 4. Anemia, unspecified type - ICD9: 285.9, ICD10: D64.9 - COMPLETE BLOOD COUNT 5. Chronic insomnia - ICD9: 780.52, ICD10: F51.04 - TRAZODONE 100 MG TABLET Jose Antonio Isakov, MD SIGNATURE: Jose Antonio Hopper MD DATE: September 04, 2024 TIME: 2:11 PM documented in this encounterOhiohealth Southeastern Medical Center03-21-2025 [facility]03-21-2025 Telephone encounter Note* Telephone Encounter - Benny Johnson - 09/04/2024 10:57 AM EDT 09/04 - Scheduled patient for Thoracentesis at [facility] for 09/08 @ [facility]03-21-2025 Miscellaneous Notes* Telephone Encounter - Benny Johnson - 09/04/2024 10:57 AM EDT 09/04 - Scheduled patient for Thoracentesis at [facility] for 09/08 @ documented in this encounterOhiohealth Southeastern Medical Center03-19-2025 Telephone encounter Note * Telephone Encounter - Hanane Bonilla APRN.CNP - 09/02/2024 4:13 PM EDT Spoke with [facility] who states they have not had steroid injection yet (updated). She is wondering aboutbest practice to get PleurX to drain and if it is okay to have patient cough during draining. Advised that coughing is okay during draining. Currently draining daily till appointment with Dr. Riggs. All questions answered to satisfaction. Hanane Bonilla APRN.CNP 4:22 PM, 09/02/2024 [facility] Work Phone: 1(502) 235-822303-19-2025 Miscellaneous Notes* Telephone Encounter - Hanane Bonilla APRN.CNP - 09/02/2024 4:13 PM EDT Spoke with [facility] who states they have not had [...] from the original note were not included. [facility] Phone Encounter DATE of SERVICE: 09/02/2024 TIME of SERVICE: 3:57 PM Status: Non-urgent, needs attention Service/Provider: Thoracic Surgery Ronaldo Flood M.D. Reason for call: Care Coordination Contact information: Roney Campos Home Care nurse, [facility] Comments: Roney Campos home care nurse, called the [facility] post-discharge line to ask to speak with Della Barragan CNP as she just left a visit with the patient, Sav Raymundo. Beth has questions about PleurX catheter. She is wondering If she should be having pt cough to get more drainage out or if she should be letting it drain as is. [facility] would like advice and instruction on PleurX. Susan Rodas RN Date of Resolution: 09/02/2024 Time of Resolution 3:57 PM documented in this encounterOhiohealth Southeastern Medical Center03-19-2025 Telephone encounter Note * Telephone Encounter - Susan Rodas RN - 09/02/2024 3:57 PM EDT Images from the original note were not included. [facility] Phone Encounter DATE of SERVICE: 09/02/2024 TIME of SERVICE: 3:57 PM Status: Non-urgent, needs attention Service/Provider: Thoracic Surgery Ronaldo Flood M.D. Reason for call: Care Coordination Contact information: Beth Roney Home Care nurse, Resolution[facility] Comments[facility] called the [facility] post-discharge line to ask to speak with [...] Resolution: 09/02/2024 Time of Resolution 3:57 PM [facility]2025 History of Present illness Narrative* [...] limited to risks of scarring, darker or upsetter setter up pigmentary changes, recurrence, incomplete removal and infection. [...] both legs Left Lower Leg - Anterior Iantha scaly plaques in areas of edema, mild, [...] Next Visit: 1 year documented in this encounterReynolds County General Memorial HospitalVtymbtzajm26-71-9920 Telephone encounter Note* Telephone Encounter - Britney Hsu RN - 08/26/2024 4:27 PM EDT Patient spouse (ayaka) returned call. Verified patient name and . Advised potassium levels were low and elevated kidney function. To please follow up with PCP and Dr. Hopper. verbalized understanding and agreed, Will follow up as needed. Britney Shen RN [facility]03-12-2025 Miscellaneous Notes* Telephone Encounter - Brintey Hsu RN - 08/26/2024 4:27 PM EDT Patient spouse (ayaka) returned call. Verified patient name and . Advised potassium levels were low and elevated kidney function. To please follow up with PCP and Dr. Hopper. verbalized understanding and agreed, Will follow up as needed. Britney Shen RN * Telephone Encounter - Britney Hsu RN - 08/26/2024 12:44 PM EDT ----- Message from Sue Terrell MD sent at 08/26/2024 12:41 PM EDT ----- Please call patient and let him know that his potassium levels are down with elevated kidney function test. He is already on potassium supplements. Needs to touch base with his PCP and Dr Hopper for further management Attempted to call patient no answer. Left message to return call. [employer] message sent to call nurse. Will follow up as needed. Britney Shen RN * Result Encounter Note - Sue Terrell MD - 08/26/2024 12:41 PM EDT Please call patient and let him know that his potassium levels are down with elevated kidney function test. He is already on potassium supplements. Needs to touch base with his PCP and Dr Hopper for further management documented in this encounterOhiohealth Southeastern Medical Center03-12-2025 Telephone encounter Note * Telephone Encounter - Britney Hsu RN - 08/26/2024 12:44 PM EDT ----- Message from Sue Terrell MD sent at 08/26/2024 12:41 PM EDT [...] follow up as needed. Britney Shen RN [facility]03-12-2025 Progress note* Result Encounter Note - Sue Terrell MD - 08/26/2024 12:41 PM EDT Please call patient and let him know that his potassium levels are down with elevated kidney function test. He is already on potassium supplements. Needs to touch base with his PCP and Dr Hopper for further management [facility] Work Phone: 1(800) 467-234903-10-2025 History of Present illness Narrative* Sue Terrell MD - 08/24/2024 11:00 AM EDT Follow Up Visit SUBJECTIVE 74 year old male with lymphocytic colitis here for follow-up. Last seen 05/26/2024. Changes and test results since last visit: He is off of budesonide since a month Coughing, vomiting and swallowing issues. Started on Lost about 11 lbs weight loss. Primary Grade Teacher wants to start steroid injections directly into [...] mouth once daily. 90 tablet 0 calcium wpn-xga-L7-Zn-epic kaleidoscope analyst-kian 250 mg-40 mg- 125 unit-3.75mg tab Take [...] with possible dilation -continue with PPI Sue Terrell MD, MD August 23, 2024 7:06 PM * Shyla Ornelas OCCA - 08/24/2024 10:49 AM EDT Pt stated that he is having problems swallowing. Pt coughs and throws up for the food that gets stuck and then he can eat some more. documented in this encounterOhiohealth Southeastern Medical Center03-10-2025 [facility]03-10-2025 [facility]03-07-2025 Telephone encounter Note* Telephone Encounter - Ayana Cheung RN - 08/21/2024 10:28 AM EST Images from the original note were not included. [facility] Phone Encounter DATE of SERVICE: 08/21/2024 TIME of SERVICE: 10:28 AM Status: Non-urgent, needs attention Service/Provider: Thoracic Surgery Ronaldo Flood M.D. Reason for call: Care Coordination Contact information: Roney Campos Home Care nurse, Resolution: Sent to [employer] Comments: Roney Campos home care nurse, called the [facility] post-discharge line to ask to speak [...] Resolution: 08/21/2024 Time of Resolution 10:28 AM [facility]03-07-2025 Miscellaneous Notes* Telephone Encounter - Ayana Cheung RN - 08/21/2024 10:28 AM EST Images from the original note were not included. [facility] Phone Encounter DATE of SERVICE: 08/21/2024 TIME of SERVICE: 10:28 AM Status: Non-urgent, needs attention Service/Provider: Thoracic Surgery Ronaldo Flood M.D. Reason for call: Care Coordination Contact information: Roney Campos Home Care nurse, Resolution: Sent to [employer] Comments: Roney Campos home care nurse, called the [facility] post-discharge line to ask to speak [...] of Resolution 10:28 AM documented in this encounterOhiohealth Southeastern Medical Center03-04-2025 [facility]03-04-2025 History of Present illness Narrative* Della Barragan APRN.TRUCK BODY BUILDER - 08/18/2024 2:06 PM EST Images from the original note were not included. Heart, Vascular and Thoracic [facility] DEPARTMENT OF THORACIC SURGERY OUTPATIENT VISIT TYPE ESTABLISHED Part of this note was copied from previous note, all content has been individually reviewed, updated as necessary, and thoroughly reviewed. PT NAME: Sav Cantu [facility] NO: [id number] THORACIC SURGEON: Ronaldo Flood M.D. DATE OF SERVICE: 08/18/2024 PRINCIPAL DX: Pleural Effusion SURGICAL HX 11/20/2023: R VATS pleural biopsy, right construction equipment mechanic helper and doxycycline pleurodesis, right Pleurx catheter insertion, right 20Fr chest tube insertion Surgical Pathology 11/20/2023: FINAL DIAGNOSIS A. Right pleura, biopsy: - Chronic pleuritis with mesothelial hyperplasia (see comment). B. Right pleura, biopsy: - Acute organizing and chronic pleuritis (see comment). SD/ 11/22/2023 Diagnosis Comment A. The biopsy contains [...] reactive proliferation. [facility] Della Subramanian [facility] also reviewed this case and [...] 11/20/2023, patient underwent R VATS pleuralbiopsy, right construction equipment mechanic helper and doxycycline pleurodesis, right Pleurx catheter insertion, right 20Fr chest tube insertion. He was hospitalized 12/20/23 for anasarca, possible autoimmune disease, recurrent pleural effusion. Imaging did not reveal any acute findings. Patient was admitted to [facility] and started on lasix drip, improving anasarca and pleural effusion. Pleurx catheter was drained daily with significantly decreasing output [phone]. He was worked up for an autoimmune [...] effusion s/p R VATS pleural biopsy, right construction equipment mechanic helper and doxycycline pleurodesis, right Pleurx catheter insertion, right 20Fr chest tube insertion on 11/20/[address] Flood. PLAN: - continue draining the pleurex daily - Dr Riggs/pulm to perform intrapleural steroid injection - return as needed Della Barragan APRN.TRUCK BODY BUILDER documented in this encounterOhiohealth Southeastern Medical Center02-28-2025 NoteRight Eye Quality was good. Scan locations included subfoveal. Progression has been stable. Findings include normal observations. Left Eye Quality was good. Scan locations included subfoveal. Progression has been stable. Findings include normal observations. Notes Good scan with normal appearanceReynolds County General Memorial HospitalUahyahftkx01-56-1626 NoteU[facility]02-26-2025 History of Present illness Narrative* Anne-Marie Bajwa, DO - 08/12/2024 3:00 PM EST Images [...] laser capsulotomy, they are to notify their food service order clerk promptly if they have a significant change [...] resolution of the lesion. documented in this encounterReynolds County General Memorial HospitalHvjxsdroin18-07-1257 Telephone encounter Note* Telephone Encounter - Maggie Leon - 08/12/2024 12:42 PM EST Patient requesting return call from Katerina. Please call [phone] I informed patient Beth from [facility] called today and spoke with office. [facility]02-26-2025 Miscellaneous Notes* Telephone Encounter - Maggie Leon - 08/12/2024 12:42 PM EST Patient requesting return call from Katerina. Please call [phone] I informed patient Beth from [facility] called today and spoke with office. documented in this encounterOhiohealth Southeastern Medical Center02-26-2025 Telephone encounter Note * Telephone Encounter - Amanda Brooks - 08/12/2024 12:27 PM EST Beth from [facility] called and would like to speak to Katerina. Spoke with Beth She informed me that pt going to local ED for evaluation. Update: Pt had b/l US - report from [facility] was negative for DVTs was received and sent to be entered into scanned docs. Pt notified of results. Katerina Contreras PA-C [facility]02-26-2025 Miscellaneous Notes* Telephone Encounter - Amanda Brooks - 08/12/2024 12:27 PM EST Beth from [facility] called and would like to speak to Katerina. Spoke with Beth She informed me that pt going to local ED for evaluation. Update: Pt had b/l US - report from [facility] was negative for DVTs was received and sent to be entered into scanned docs. Pt notified of results. Katerina Contreras PA-C documented in this encounterOhiohealth Southeastern Medical Center02-26-2025 Telephone encounter Note * Telephone Encounter - Maggie Leon - 08/12/2024 10:21 AM EST Beth from [facility] called and updated she left a voicemail regarding this patient. He is having issues with pleurrX drain, swelling, weight gain, nausea and constipation. She would like acall back at [phone] Spoke with pt's [facility] nurse, Beth. Pt still draining daily [...] Flood. Of note, they are meeting with SEAL MIXER Della Barragan on , 08/18/24. Update communicated to Dr. Riggs. Katerina Contreras PA-C Addendum: Nurse reports pt plans on going to [facility] Katerina Contreras PA-C [facility]02-26-2025 Miscellaneous Notes* Telephone Encounter - Maggie Leon - 08/12/2024 10:21 AM EST Beth from [facility] called and updated she left a voicemail regarding this patient. He is having issues with pleurrX drain, swelling, weight gain, nausea and constipation. She would like acall back at [phone] Spoke with pt's [facility] nurse, Beth. Pt still draining daily [...] Flood. Of note, they are meeting with SEAL MIXER Della Barragan on , 08/18/24. Update communicated to Dr. Riggs. Katerina Contreras PA-C Addendum: Nurse reports pt plans on going to [facility] Katerina Contreras PA-C documented in this encounterOhiohealth [facility]heastern [facility] Center02-24-2025 Telephone encounter Note * Telephone Encounter - Amanda Brooks - 08/10/2024 9:35 AM EST Beth from [facility] called and would like to speak to Katerina regarding patient symptoms [facility]02-24-2025 Miscellaneous Notes* Telephone Encounter - Amanda Brooks - 08/10/2024 9:35 AM EST Beth from [facility] called and would like to speak to Katerina regarding patient symptoms documented in this encounterOhiohealth Southeastern Medical Center02-18-2025 Telephone encounter Note * Telephone Encounter - Maggie Leon - 08/04/2024 10:23 AM EST Call received from home care NurseBeth. She wanted to update our office that she is waiting to hear back from dr Flood. Patient is having issues with pleurix and they are unsure if it's due to clogging or if it's positional. Beth can be reached at [phone] [facility]02-18-2025 Miscellaneous Notes* Telephone Encounter - Maggie Leon - 08/04/2024 10:23 AM EST Call received from home care NurseBeth. She wanted to update our office that she is waiting to hear back from dr Flood. Patient is having issues with pleurix and they are unsure if it's due to clogging or if it's positional. Beth can be reached at [phone] * Telephone Encounter - Amanda Brooks - [...] 20 Today - 35 Virgen (patient ) [phone] Patient [phone] documented in this encounterOhiohealth Southeastern Medical Center02-18-2025 Telephone encounter Note * Telephone Encounter - Jahaira Wood - 08/04/2024 8:38 AM EST Received missed visit notes from [facility], record scannned in [employer] Jahaira Wood, windows server administrator [facility]02-18-2025 Miscellaneous Notes* Telephone Encounter - Jahaira Wood - 08/04/2024 8:38 AM EST Received missed visit notes from [facility], record scannned in [employer] Jahaira Wood, windows server administrator documented in this encounterOhiohealth Southeastern Medical Center02-17-2025 Telephone encounter Note * Telephone [...] 20 Today - 35 Virgen (patient ) [phone] Patient [phone] [facility]02-04-20[facility] History of Present illness Narrative* Jose Antonio Hopper MD - 07/21/2024 2:19 PM EST PROGRESS NOTES Patient Name: Sav Raymundo SERVICE DATE: 07/21/2024 SERVICE TIME: 2:25 PM HPI: Mr. Raymundo is a 74 year old male who presents for Effusion.Has been emptying Plerax catheter daily.Has been seeing salon designer at [facility].Pleural fluid analysis has been done MEDICATIONS: Current Outpatient Medications Medication Sig Dispense Refill potassium chloride ER (KLOR-CON M20) 20 mEq tablet Take 2 tablets by mouth two times a day. 360 tablet 0 torsemide (DEMADEX) 100 mg tablet Take 1 tablet by mouth once daily. 90 tablet 0 calcium ayk-lym-P1-Zn-epic kaleidoscope analyst-kian 250 mg-40 mg- 125 unit-3.75mg tab Take [...] diaphragmatic excursion. Lungs clear to auscultation. Heart: Wilber normal. Precordium quiet. RRR. Normal HS with [...] 2024 TIME: 2:25 PM documented in this encounterOhiohealth Southeastern Medical Center02-03-2025 History of Present illness Narrative* Triston Riggs MD - 07/20/2024 1:00 PM EST Images from the original note were not included. [facility] CC: Persistent RIGHT pleural effusion Sav Raymundo is a 74 year old male sent by Dr. STEPHANE Cesar MD for evaluation of persistent RIGHT pleural effusion. My final recommendations will be communicated to the requesting health care provider by way of the shared medical record for internal providers or letter via the [employer] Postal Service for external providers. Assessment and [...] did he have some sense of limitation. [facility], [place], [place] is home care provider. Excerpt from Dr Cesar 05/20/2024. Mr Raymundo is a 71 y/o, from the [facility], here for follow-up for pleural effusion. He [...] referred for pleurodesis to thoracic surgery in [facility], which he underwent inJune 2023. Though no pleural fluid analysis done, but pleural biopsy showed pleuritis. Post pleurodesis, he continued to have significant drainage, tunneled pleural catheter was placed. He was then hospitalized ( abdominal bloating ) -in [facility], and responded well to diuresis. He [...] other day) -Rheumatologic assessment done, workup negative, automobile relocation engineer has no evidence of any autoimmune disease -Off prednisone for the last 5 months -Off Plaquenil for the past 3 weeks -On diuretics, now on torsemide Interestingly, on further discussion, mostly with automobile relocation engineer, we have uncovered that he has been [...] mouth once daily. 90 tablet 0 calcium bea-tnq-T1-Zn-epic kaleidoscope analyst-kian 250 mg-40 mg- 125 unit-3.75mg tab Take [...] 0.5 04/20/2024 Abs Neut 5.91 04/20/2024 Abs [place] 1.03 04/20/2024 Abs Eosin <0.03 04/20/2024 Abs [...] 36 % 39 80 (H) 80 (H) [place]%, BF % 6 Macro%, BF 64 - [...] Pulmonology. Pulmonary, Allergy & Critical Care Medicine [facility] documented in this encounterOhiohealth Southeastern Medical Center02-03-2025 [facility]25 NoteHNO ID: [id number] Author: KATERINA CONTRERAS PA-C Service: ? Author Type: Physician Coal Handler Type: Progress Notes Filed: 07/17/2024 14:02 Note Text: Orders for pleurX vacuum bottles signed and faxed back to [facility]. [facility] History of Present illness Narrative* Katerina Contreras PA-C - 07/17/2024 2:01 PM EST Orders for pleurX vacuum bottles signed and faxed back to [facility]. Katerina Contreras PA-C documented in this encounterOhiohealth Southeastern Medical Center01-30-2025 Telephone encounter Note * Telephone Encounter - Maggie Leon - 07/16/2024 2:53 PM EST Called patient's and informed her that there isn't any indication in Dr. Riggs's office notes that request any lab work at this time. [facility]01-30-2025 Miscellaneous Notes* Telephone Encounter - Maggie Leon - 07/16/2024 2:53 PM EST Called patient's and informed her that there isn't any indication in Dr. Riggs's office notes that request any lab work at this time. * Telephone Encounter - Maggie Leon - 07/16/2024 12:45 PM EST Patient is a lab in [facility] and they only see orders for body fluid, which they are unable to do. Patient would like to confirm if blood labs will need to be drawn. If so, facility will need thoseorders Admin will follow up at [phone] documented in this encounterOhiohealth Southeastern Medical Center01-30-2025 Telephone encounter Note * Telephone Encounter - Maggie Leon - 07/16/2024 12:45 PM EST Patient is a lab in [facility] and they only see orders for body fluid, which they are unable to do. Patient would like to confirm if blood labs will need to be drawn. If so, facility will need thoseorders Admin will follow up at [phone] [facility]01-28-2025 Evaluation note* Diagnosis Onset Date Resolution Status Admit Date Nausea & vomiting acuteJanuary 2024 4:27pmViral respiratory illnessacuteJanuary 2024 4:27pm [facility] Work Phone: 1(797) 484-315701-22-2025 [facility]01-22-2025 History of Present illness Narrative* Katerina Contreras PA-C - 07/08/2024 9:41 AM EST Received fax from [facility] for signature for updated pleurX draining order to daily draining for 2 months. This was completed and faxed back to them. Katerina Contreras PA-C documented in this encounterOhiohealth Southeastern Medical Center01-06-2025 [facility]01-06-2025 History of Present illness Narrative* Katerina Contreras PA-C - 06/22/2024 3:10 PM EST Per request of Dr. Riggs, we plan on increasing his pleurX catheter draining to everyday. Updated orders sent to [facility] (supplies) and [facility] (faxed to [phone]). His home nurseis Beth, work cell [phone]. She is to call us if sudden cessation of drainage or 3 subsequent drains of less than 100 ml. Katerina Contreras PA-C documented in this encounterOhiohealth Southeastern Medical Center01-06-2025 History and physical note * Triston Riggs MD - 06/22/2024 9:00 AM EST Images from the original note were not included. [facility] CC: Persistent RIGHT pleural effusion Sav Raymundo is a 74 year old male sent by Dr. STEPHANE Cesar MD for evaluation of persistent RIGHT pleural effusion. My final recommendations will be communicated to the requesting health care provider by way of the shared medical record for internal providers or letter via the [employer] Postal Service for external providers. Assessment and [...] did he have some sense of limitation. [facility], [place], [place] is home care provider. Excerpt from Dr Cesar 05/20/2024. Mr Raymundo is a 71 y/o, from the [facility], here for follow-up for pleural effusion. He [...] referred for pleurodesis to thoracic surgery in [facility], which he underwent inJune 2023. Though no pleural fluid analysis done, but pleural biopsy showed pleuritis. Post pleurodesis, he continued to have significant drainage, tunneled pleural catheter was placed. He was then hospitalized ( abdominal bloating ) -in [facility], and responded well to diuresis. He [...] other day) -Rheumatologic assessment done, workup negative, automobile relocation engineer has no evidence of any autoimmune disease -Off prednisone for the last 5 months -Off Plaquenil for the past 3 weeks -On diuretics, now on torsemide Interestingly, on further discussion, mostly with automobile relocation engineer, we have uncovered that he has been [...] Current Outpatient Medications Medication Sig Dispense Refill vcgvqw-dsnruoiz-kvjxefy (CREON) 36,000-114,000- 180,000 unit delayed release capsule Take 2 capsules by mouth three times a day with meals. 200 capsule 1 potassium chloride ER (KLOR-CON M20) 20 mEq tablet Take 2 tablets by mouth two times a day. 360 tablet 0 torsemide (DEMADEX) 100 mg tablet Take 1 tablet by mouth once daily. 90 tablet 0 calcium raf-tks-W6-Zn-epic kaleidoscope analyst-kian 250 mg-40 mg- 125 unit-3.75mg tab Take [...] 0.5 04/20/2024 Abs Neut 5.91 04/20/2024 Abs [place] 1.03 04/20/2024 Abs Eosin <0.03 04/20/2024 Abs [...] Pulmonology. Pulmonary, Allergy & Critical Care Medicine [facility] Work Phone: 1(955) 663-362201-06-2025 History and physical note* Triston Riggs MD - 06/22/2024 9:00 AM EST Images from the original note were not included. [facility] CC: Persistent RIGHT pleural effusion Sav Raymundo is a 74 year old male sent by Dr. STEPHANE Cesar MD for evaluation of persistent RIGHT pleural effusion. My final recommendations will be communicated to the requesting health care provider by way of the shared medical record for internal providers or letter via the [employer] Postal Service for external providers. Assessment and [...] did he have some sense of limitation. [place], [place] is home care provider. Excerpt from Dr Cesar 05/20/2024. Mr Raymundo is a 71 y/o, from the [facility], here for follow-up for pleural effusion. He [...] referred for pleurodesis to thoracic surgery in [facility], which he underwent inJune 2023. Though no pleural fluid analysis done, but pleural biopsy showed pleuritis. Post pleurodesis, he continued to have significant drainage, tunneled pleural catheter was placed. He was then hospitalized ( abdominal bloating ) -in [facility], and responded well to diuresis. He [...] other day) -Rheumatologic assessment done, workup negative, automobile relocation engineer has no evidence of any autoimmune disease -Off prednisone for the last 5 months -Off Plaquenil for the past 3 weeks -On diuretics, now on torsemide Interestingly, on further discussion, mostly with automobile relocation engineer, we have uncovered that he has been [...] Current Outpatient Medications Medication Sig Dispense Refill jlyuli-lmubtfkg-mrwweir (CREON) 36,000-114,000- 180,000 unit delayed release capsule Take 2 capsules by mouth three times a day with meals. 200 capsule 1 potassium chloride ER (KLOR-CON M20) 20 mEq tablet Take 2 tablets by mouth two times a day. 360 tablet 0 torsemide (DEMADEX) 100 mg tablet Take 1 tablet by mouth once daily. 90 tablet 0 calcium txj-vdv-M7-Zn-epic kaleidoscope analyst-kian 250 mg-40 mg- 125 unit-3.75mg tab Take [...] 0.5 04/20/2024 Abs Neut 5.91 04/20/2024 Abs [place] 1.03 04/20/2024 Abs Eosin <0.03 04/20/2024 Abs [...] Pulmonology. Pulmonary, Allergy & Critical Care Medicine [facility] documented in this encounterOhiohealth Southeastern Medical Center12-27-2024 History of Present illness Narrative* [...] 2 in PM) 120 tablet 2 calcium wok-xox-E5-Zn-epic kaleidoscope analyst-kian 250 mg-40 mg- 125 unit-3.75mg tab Take [...] Take 1 tablet by mouth once daily. ufchug-rogdvwzo-aljwcfu (CREON) 36,000-114,000- 180,000 unit delayed release capsule [...] diaphragmatic excursion. Lungs clear to auscultation. Heart: Wilber normal. Precordium quiet. RRR. Normal HS with [...] 2024 TIME: 3:04 PM documented in this encounterOhiohealth Southeastern Medical Center12-18-2024 [facility]12-18-2024 History of Present illness Narrative* Steffen Mccarty MD - 06/03/2024 10:23 AM EST Images from the original note were not included. Rheumatology FOLLOW UP VISIT Date of Service: 06/01/2024 Patient: Sav Raymundo Medical Record: [id number] Primary Care Physician: Yuli Mariscal DO Last [...] PMHx except for bilateral knee replacements and Lutz fracture s/p surgery who presents for evaluation [...] underwent on 11/20/2023 R VATS with R construction equipment mechanic helper and doxyxyclyine pleurodesis, pleural biopsy. Biopsy notable [...] in Am and 2 in PM) calcium qgt-wtt-R8-Zn-epic kaleidoscope analyst-kian 250 mg-40 mg- 125 unit-3.75mg tab Take [...] AI <0.2 Sm Antibody Negative Negative Ribosomal COMMERCIAL LITIGATION ASSOCIATE Ab <1.0 AI <0.2 Ribosomal COMMERCIAL LITIGATION ASSOCIATE Qualitative Negative Negative Chromatin Ab <1.0 AI <0.2 Chromatin Ab Qual Negative Negative SSA Antibody Qual Negative Negative Anti-SSA <1.0 AI <0.2 Anti-SSB <1.0 AI <0.2 COMMERCIAL LITIGATION ASSOCIATE Antibody QUAL Negative Negative Scleroderma Ab Qual [...] on 06/01/2024 Name Date COVID-19 vaccine, monovalent (Hashtago) 09/13/2020, 08/22/2020, 08/15/2020 influenza (aIIV3) vaccine 05/09/2020 [...] Full ROM in flexion and extension. Full customer service sales associate strength. No swelling or synovitis along the [...] is currently no information documented on the [facility]. Go to the Rheumatology activity andcomplete the [facility] joint exam. Joint Exam 06/01/2024 No joint [...] which included preparing to see the patient, xvom-cq-vnnw patient care, completing clinical documentation, obtaining and/or reviewing separately obtained history, performing a medically appropriate examination, and counseling and educating the patient/family/caregiver. Steffen Villa MD Rheumatology Date: June 03, 2024 Time: 10:43 AM documented in this encounterOhiohealth Southeastern Medical Center12-10-2024 History of Present illness Narrative* Sue Terrell MD - 05/26/2024 4:30 PM EST Follow [...] times a day. 120 tablet 2 calcium hki-iee-B5-Zn-epic kaleidoscope analyst-kian 250 mg-40 mg- 125 unit-3.75mg tab Take [...] protein losing enteropathy in 3 months Sue Terrell MD May 26, 2024 9:42 AM documented in this encounterOhiohealth Southeastern Medical Center12-10-2024 [facility]12-09-2024 Telephone encounter Note* Telephone Encounter - Marcy Longoria - 05/25/2024 12:15 PM EST Spoke with spouse to schedule appt /6 [facility]12-09-2024 Miscellaneous Notes* Telephone Encounter - Marcy Longoriapepe - 05/25/2024 12:15 PM EST Spoke with spouse to schedule appt 06/22 documented in this encounterOhiohealth Southeastern Medical Center12-02-2024 Instructions* Patient Instructions* Louise Cesar [...] CT scan and see Interventional Pulmonary in [facility] or [place]. Pleuroscopy could be considered but difficult after Angelique chest surgery (VATS pleurodesis) Next steps to do - see Interventional Pulmonary Dr. Riggs/Vicki with CT scan - stay tuned. Please check in if you don't hear anything in the next 2-[address] Diana Cesar MD Pulmonary and Critical Care Medicine [facility] documented in this encounterOhiohealth Southeastern Medical Center12-02-2024 History of Present illness Narrative* [...] PATIENT PRESENTS WITH AN IMPLANTABLE OR ATTACHED TALENT SCOUT: No RADIOLOGY DEPARTMENT: General X-ray: Exam(s) Completed: Chest X-Ray PERIPHERAL IV DATA: Not applicable SIGNED BY: RT Rosaline(R) May 18, 2024 10:54 AM documented in this encounterOhiohealth Southeastern Medical Center12-02-2024 [facility]12-02-2024 [facility]12-02-2024 History of Present illness Narrative* Louise Cesar MD - 05/18/2024 10:55 AM EST Images from the original note were not included. INTERVAL HPI: Willie is a gentleman in his 70s, from the [facility], here for follow-up for pleural effusion. He [...] referred for pleurodesis to thoracic surgery in [facility], which he underwent inJune 2023. Though no pleural fluid analysis done, but pleural biopsy showed pleuritis. Post pleurodesis, he continued to have significant drainage, tunneled pleural catheter was placed. He was then hospitalized ( abdominal bloating ) -in [facility], and responded well to diuresis. He [...] other day) -Rheumatologic assessment done, workup negative, automobile relocation engineer has no evidence of any autoimmune disease -Off prednisone for the last 5 months -Off Plaquenil for the past 3 weeks -On diuretics, now on torsemide Interestingly, on further discussion, mostly with automobile relocation engineer, we have uncovered that he has been [...] pleural effusion s/p R-VATS pleural biopsy, right construction equipment mechanic helper and doxycycline pleurodesis, right Pleurx catheter insertion, on 12/10/2023. Mr. Kumar presents with an interesting history. He is a semiretired gentleman from the [facility], with virtually no past medical [...] and he was referred to a local salon designer. He underwent thoracentesis several times, each time pleural fluid analysis showed exudative fluid. CT scan was obtained locally which did not reveal much except pleural effusion. CT scan also shows pericardial effusion. He was then referred by his local salon designer to [facility] for a pleurodesis. In November 2023, he underwent VATS pleurodesis (mechanical and doxycycline), with pleural biopsy, and the Pleurx catheter was also placed. Analysis of the pleural fluid and biopsies of the pleura showed acute and chronic pleuritis with organization, but no malignancy. We do not have pleural fluid chemical or hematological analysis done in [facility], but cytology was negative for malignant cells. He was discharged with Pleurx catheter, and and has been draining pleural fluid about 500 to 800 mLevery other day. And his dry cough has also been persistent. In December 2023, he was sent to [facility] after seeing thoracic surgery ADRIENNE for anasarca, [...] He is scheduled to see rheumatology in [facility] in the next 2 weeks. [...] overload/CHF?, chronic cough - local PCP, has [facility] PCP, Dr. 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 Outpatient Medications: calcium mls-nbu-S8-Zn-epic kaleidoscope analyst-kian 250 mg-40 mg- 125 unit-3.75mg tab Take [...] personally reviewed by me Data Reviewed from [facility] (in addition to that noted in HPI, and Past histories above): CMP, CBC Testing data, personally reviewed and interpreted by me: PFT, Imaging, Labs, CVS data. Assessment: Sav Raymundo is a 74 year old male presents for evaluation/follow-up of: for chronic cough and recurrent right-sided pleural effusion s/p R-VATS pleural biopsy, right construction equipment mechanic helper and doxycycline pleurodesis, right Pleurx catheter insertion, [...] test neg, EF >50%, Repeat echo in [facility] March 26, 2024 - normal Problems: (J90) Pleural effusion (primary encounter diagnosis) (R05.3) Chronic cough (R91.1) Lung nodule (K52.832) Lymphocytic colitis Vaccines: current except flu shot, planning to get it PMH:pleural effusion, fluid overload/CHF, chronic cough - local PCP, has [facility] PCP, Dr. Flood (Thoracic), scheduled to see automobile relocation engineer in [facility] Social:Lives near [place], in own house, with , no pets, adult kids, just 1 daughter who lives in [place], 2 grand-kids, no lung disease in the [...] CT scan and see Interventional Pulmonary in [facility] or [place]. Pleuroscopy could be considered but difficult after November chest surgery (VATS pleurodesis) Sav Raymundo understands the plan and discussion and is comfortable with it. I spent a total of 45 minutes on the date of the service which included preparing to see the patient, izbz-cw-iozk patient care, completing clinical documentation, obtaining and/or reviewing separately obtained history, performing a medically appropriate examination, counseling and educating the pat ient/family/caregiver, ordering medications, tests, or procedures, independently interpreting results (not separately reported), and care coordination (not separately reported). Louise Cesar MD documented in this encounterOhiohealth Southeastern Medical Center11-27-2024 History of Present illness Narrative* [...] two times a day. 60 tablet 0 SGSDIXM-XPPUWPCNC-EDGZ ORAL Take by mouth. iv contrast (will [...] 1 tablet by mouth once daily. calcium yfh-hwd-E6-Zn-epic kaleidoscope analyst-kian 250 mg-40 mg- 125 unit-3.75mg tab Take [...] diaphragmatic excursion. Lungs clear to auscultation. Heart: Wilber normal. Precordium quiet. RRR. Normal HS with [...] 2024 TIME: 11:13 AM documented in this encounterOhiohealth Southeastern Medical Center11-21-2024 Telephone encounter Note * Telephone Encounter - Britney sHu RN - 05/07/2024 7:29 PM EST . [facility]11-21-2024 Miscellaneous Notes* Telephone Encounter - Britney Hsu RN - 05/07/2024 7:29 PM EST . documented in this encounterOhiohealth Southeastern Medical Center11-12-2024 History and physical note * [...] MAC Additional Comments: None Vic Ponce MD [facility]11-12-2024 History and physical note* Vic [...] None Vic Ponce MD documented in this encounterOhiohealth Southeastern Medical Center11-12-2024 Nurse Note* Jahaira Hood RN [...] PROVIDED TO PATIENT: None REFERRAL (RECOMMENDATION): None [facility]11-12-2024 Nurse Note* Jahaira Hood RN [...] Signed By: Maureen Laughlin documented in this encounterOhiohealth Southeastern Medical Center11-12-2024 Nurse Note* Maureen Laughlin RN [...] (RECOMMENDATION): None Electronically Signed By: Maureen Laughlin [facility]11-06-2024 History of Present illness Narrative* [...] flushing IVwith blood return. 2 attempts by vanessa RN, 2 attempts by Tonya Wagner page technician. Patient requests to try again to [...] PATIENT PRESENTS WITH AN IMPLANTABLE OR ATTACHED TALENT SCOUT: No RADIOLOGY DEPARTMENT: CT; Exam(s) Completed: Enterography PERIPHERAL IV DATA: Not applicable SIGNED BY: RT Tyree(R) April 22, 2024 11:55 AM documented in this encounterOhiohealth Southeastern Medical Center11-06-2024 [facility]-2024 NoteCALPROTECTIN, FECAL INTERPBorderline elevated. Re-evaluation in 4-6 weeks is recommended if clinically indicated.(A)Vmqwvy4604/21/2024 9:04 PM ESTWhite Hospital on above:Interpretation: <50.0 ug/g: Normal 50.0 ug/g - 120.0 ug/g: Borderline elevated. Re-evaluation in 4-6 weeks is recommended if clinically indicated. >120.0 ug/g: Elevated 04-20-2024 NoteBorderline elevated. Re-evaluation in 4-6 weeks is recommended if clinically indicated.[facility] on above:Order Comment: Specimen Type: STOOL SPECIMENOrdering Facility: [facility] Address:[address] [place] [id number] Comment: Interpretation:<50.0 ug/g: Gvkuiu86.0 ug/g - 120.0 ug/g: Borderline elevated. Re-evaluation in 4-6 weeks is recommended if clinically indicated.>120.0 ug/g: ElevatedPerformed By: #### 83908-1, 90735-6, PANCEF ####[facility] LABCLIA [id number] [facility] [id number] [id number] [place] 04-20-2024 Instructions* Patient Instructions* Sue Terrell MD - 04/20/2024 12:27 PM EST COLONOSCOPY [...] am on dialysis? A: Please consult your playground attendant prior to scheduling to get instructions pertinent to you. In general, dialysis patients take the [employer] bowel prep and have the procedure same [...] to inadequate prep quality. documented in this encounterOhiohealth Southeastern Medical Center11-04-2024 NoteU[facility]11-04-2024 History of Present illness Narrative* Sue Terrell MD - 04/20/2024 11:46 AM EST NAME: Sav Raymundo [facility] NO: [id number] REASON FOR VISIT Sav Raymundo is a [...] Current Outpatient Medications Medication Sig Dispense Refill [id number]-MQJVOPLAD-FELN ORAL Take by mouth. iv contrast (will [...] Follow up after above work up Sue Terrell MD April 20, 2024 11:46 AM documented in this encounterOhiohealth Southeastern Medical Center10-15-2024 History of Present illness Narrative* Steffen Mccarty MD - 03/31/2024 4:33 PM EDT Images from the original note were not included. Rheumatology CONSULTATION Date of Service: 03/30/2024 Patient: Sav Raymundo Medical Record: [id number] Primary Care Physician: Yuli Mariscal DO Last Rheumatology visit: 03/30/2024 (with Steffen Villa) Referring Provider: Tita Landry [address] [facility] [address] Sav Raymundo is here today at request of Tita Haywood, LETICIA.TRUCK BODY BUILDER specifically for consultation of my opinion in regards to the chief complaint listed below. Correspondence will be sharedtoday via the [facility] electronic health record or through regular mail, [...] PMHx except for bilateral knee replacements and Lutz fracture s/p surgery who presents for evaluation [...] for malignancy) Then decided to come to [facility] for second opinion. Saw Thoracic surgery first and underwent on 11/20/2023 R VATS with R construction equipment mechanic helper and doxyxyclyine pleurodesis, pleural biopsy. Biopsy notable [...] Current Medications Current Outpatient Medications Medication Sig MOAWVNK-LKUNJBWQL-ZLEW ORAL Take by mouth. iv contrast (will [...] AI <0.2 Sm Antibody Negative Negative Ribosomal COMMERCIAL LITIGATION ASSOCIATE Ab <1.0 AI <0.2 Ribosomal COMMERCIAL LITIGATION ASSOCIATE Qualitative Negative Negative Chromatin Ab <1.0 AI <0.2 Chromatin Ab Qual Negative Negative SSA Antibody Qual Negative Negative Anti-SSA <1.0 AI <0.2 Anti-SSB <1.0 AI <0.2 COMMERCIAL LITIGATION ASSOCIATE Antibody QUAL Negative Negative Scleroderma Ab Qual [...] on 03/30/2024 Name Date COVID-19 vaccine, monovalent (Hashtago) 09/13/2020, 08/22/2020, 08/15/2020 influenza (aIIV3) vaccine 05/09/2020 [...] which included preparing to see the patient, [id number] patient care, completing clinical documentation, obtaining and/or reviewing separately obtained history, performing a medically appropriate examination, and counseling and educating the patient/family/caregiver. Steffen Villa MD Rheumatology Date: March 31, 2024 Time: 4:33 PM documented in this encounterOhiohealth Southeastern Medical Center10-01-2024 History of Present illness Narrative* [...] PATIENT PRESENTS WITH AN IMPLANTABLE OR ATTACHED TALENT SCOUT: No ALLERGIES: Reviewed and unchanged CONTRAST ALLERGY: [...] 2024 TIME: 4:04 PM documented in this encounterOhiohealth Southeastern Medical Center10-01-2024 NoteHNO ID: [id number] Author: JUAN SON RT (R) Service: Radiology Author Type: Work Car Operator Type: Progress Notes Filed: 03/17/2024 16:04 [...] PATIENT PRESENTS WITH AN IMPLANTABLE OR ATTACHED TALENT SCOUT: No ALLERGIES: Reviewed and unchanged CONTRAST ALLERGY: [...] Raymundo DATE: March 17, 2024 TIME: 4:[address] [id number] History of Present illness Narrative* Ruma Oshea PA-C - 03/17/2024 1:30 PM EDT Images from the original note were not included. [place] - OUTPATIENT THORACIC SURGERY CLINIC NOTE PT NAME: Sav Raymundo [facility] NO: [id number] THORACIC SURGEON: Ronaldo Flood M.D. DATE OF SERVICE: 03/17/2024 PRINCIPAL DX: Pleural Effusion SURGICAL HX 11/20/2023: R VATS pleural biopsy, right construction equipment mechanic helper and doxycycline pleurodesis, right Pleurx catheter insertion, right 20Fr chest tube insertion Surgical Pathology: FINAL DIAGNOSIS A. Right pleura, biopsy: - Chronic pleuritis with mesothelial hyperplasia (see comment). B. Right pleura, biopsy: - Acute organizing and chronic pleuritis (see comment). SD/ 11/22/2023 Diagnosis Comment A. The biopsy contains [...] 11/20/2023, patient underwent R VATS pleuralbiopsy, right construction equipment mechanic helper and doxycycline pleurodesis, right Pleurx catheter insertion, right 20Fr chest tube insertion. He was hospitalized 12/20/23 for anasarca, possible autoimmune disease, recurrent pleural effusion. Imaging did not reveal any acute findings. Patient was admitted to [facility] and started on lasix drip, improving anasarca and pleural effusion. Pleurx catheter was drained daily with significantly decreasing output [phone]. He was worked up for an autoimmune [...] presents to clinic today for postoperative visit. [facility] RN called in 03/03 reporting increase [...] effusion s/p R VATS pleural biopsy, right construction equipment mechanic helper and doxycycline pleurodesis, right Pleurx catheter insertion, right 20Fr chest tube insertion on 11/20/[address] Flood. He was hospitalized 12/20/23 for anasarca, possible autoimmune disease, and recurrent pleural effusion. Imaging did not reveal any acute findings. Patient was admitted to [facility] and started on lasix drip, with improving anasarca and pleural effusion. Pleurx catheter was drained daily with significantly decreasing output [phone]. He was worked up for an autoimmune disease as well. He was discharged on an increased dose of lasix (20mg > 80mg) and started on Plaquenil. PLAN: - continue draining pleurx every 3 days - call our office if any new or worsening symptoms - follow up with automobile relocation engineer 04/13 for their recommendations - discussed with patient to reach out to our office with rheum recommendations, as well as if pleurx output has significantly decreased to discuss removing pleurx Ruma Oshea PA-C documented in this encounterOhiohealth Southeastern Medical Center10-01-2024 NoteHNO ID: [id number] Author: RUMA OSHEA PA-C Service: ? Author Type: Physician Coal Handler Type: Progress Notes Filed: 03/17/2024 14:26 Note Text: [place] - OUTPATIENT THORACIC SURGERY CLINIC NOTE PT NAME: [facility] NO: [id number] THORACIC SURGEON: Ronaldo Flood M.D. DATE OF SERVICE: 03/17/2024 PRINCIPAL DX: Pleural Effusion SURGICAL HX 11/20/2023: R VATS pleural biopsy, right construction equipment mechanic helper and doxycycline pleurodesis, right Pleurx catheter insertion, [...] patient underwent R VATS pleural biopsy, right construction equipment mechanic helper and doxycycline pleurodesis, right Pleurx catheter insertion, right 20Fr chest tube insertion. He was hospitalized 12/20/23 for anasarca, possible autoimmune disease, recurrent pleural effusion. Imaging did not reveal any acute findings. Patient was admitted to [facility] and started on lasix drip, improving anasarca and pleural effusion. Pleurx catheter was drained daily with significantly decreasing [phone]. He was worked up for an autoimmune [...] presents to clinic today for postoperative visit. [facility] RN called in 03/03 reporting increase in output from pleurX. Drainage schedule at that time was switchde to 3x weekly until output slows down. Prednisone course finished, plaquenil increased to BID. Patient with increase in weight and 2+ pitting BLE. Seen by pulmonary today, follow up with rheum 04/13. Patient notes today (more content not included)...[facility] 03-17-2024 History of Present illness Narrative* Wes Pride RRT - 03/17/2024 1:29 PM EDT PULM FUNCTION: Provider: Louise Cesar MD DLCO: 1 LV - Box: 1 documented in this encounterOhiohealth Southeastern Medical Center10-01-2024 Instructions* Patient Instructions* Louise Cesar [...] team. Return to clinic end April Dr. Diana Cesar MD Pulmonary and Critical Care Medicine [facility] documented in this encounterOhiohealth Southeastern Medical Center10-01-2024 NoteHNO ID: [id number] Author: LOUISE CESAR MD Service: ? Author Type: Physician Type: Progress Notes Filed: 03/18/2024 08:55 Note Text: Mr. Raymundo is a 74 year old male who [facility] [place]. Consultation requested by Dr. Hopper and Dr. Ronaldo Flood. My final recommendations/evaluation will be communicated back to the requesting physician by way of shared medical record or letter via [place] mail. This note was partially created using [employer] Voice recognition software and is inherently subject to errors including those of syntax and ?sound-alike? substitutions which may escape proofreading. In such instances, original meaning may be extrapolated by contextual derivation. HPI on March 17, 2024: Sav Raymundo is a gentleman in his 70s, presenting to the pulmonary clinic, for chronic cough and recurrent right-sided pleural effusion s/p R-VATS pleural biopsy, right construction equipment mechanic helper and doxycycline pleurodesis, right Pleurx catheter insertion, on 12/10/2023. Mr. Kumar presents with an interesting history. He is a semiretired gentleman from the [facility], with virtually no past medical [...] and he was referred to a local salon designer. He underwent thoracentesis several times, each time pleural fluid analysis showed exudative fluid. CT scan was obtained locally which did not reveal much except pleural effusion. CT scan also shows pericardial effusion. He was then referred by his local salon designer to [facility] for a pleurodesis. In November 2023, he underwent VATS pleurodesis (mechanical and doxycycline), with pleural biopsy, and the Pleurx catheter was also placed. Analysis of the pleural fluid and biopsies of the pleura showed acute and chronic pleuritis with organization, but no malignancy. We do not have pleural fluid chemical or hematological analysis done in [facility], but cytology was negative for malignant cells. He was discharged with Pleurx catheter, and and has been draining pleural fluid about 500 to 800 mL every other day. And his dry cough has also been persistent. In December 2023, he was sent to [facility] after seeing thoracic surgery ADRIENNE for anasarca, [...] He is scheduled to see rheumatology in [facility] in the next 2 weeks. [...] a history of c (more content not included)...[facility]10-01-2024 History of Present illness Narrative* Louise Cesar MD - 03/17/2024 10:46 AM EDT Images from the original note were not included. Mr. Raymundo is a 74 year old male who [facility] [place]. Consultation requested by Dr. Hopper and Dr. Ronaldo Flood. My final recommendations/evaluation will be communicated back to the requesting physician by way of shared medical record or letter via [place] mail. This note was partially created using [employer] Voice recognition software and is inherently subject to errors including those of syntax and sound-alike substitutions which may escape proofreading.In such instances, original meaning may be extrapolated by contextual derivation. HPI on March 17, 2024: Sav Raymundo is a gentleman in his 70s, presenting to the pulmonary clinic, for chronic cough and recurrent right-sided pleural effusion s/p R-VATS pleural biopsy, right construction equipment mechanic helper and doxycycline pleurodesis, right Pleurx catheter insertion, on 12/10/2023. Mr. Kumar presents with an interesting history. He is a semiretired gentleman from the [facility], with virtually no past medical [...] and he was referred to a local salon designer. He underwent thoracentesis several times, each time pleural fluid analysis showed exudative fluid. CT scan was obtained locally which did not reveal much except pleural effusion. CT scan also shows pericardial effusion. He was then referred by his local salon designer to [facility] for a pleurodesis. In November 2023, he underwent VATS pleurodesis (mechanical and doxycycline), with pleural biopsy, and the Pleurx catheter was also placed. Analysis of the pleural fluid and biopsies of the pleura showed acute and chronic pleuritis with organization, but no malignancy. We do not have pleural fluid chemical or hematological analysis done in [facility], but cytology was negative for malignant cells. He was discharged with Pleurx catheter, and and has been draining pleural fluid about 500 to 800 mLevery other day. And his dry cough has also been persistent. In December 2023, he was sent to [facility] after seeing thoracic surgery ADRIENNE for anasarca, [...] He is scheduled to see rheumatology in [facility] in the next 2 weeks. [...] overload/CHF?, chronic cough - local PCP, has [facility] PCP, Dr. Flood (Thoracic), scheduled to see automobile relocation engineer in [facility] [place] Social:Lives near [place], in own house, with , no pets, adult kids, just 1 daughter who lives in [place], 2 grand-kids, no lung disease in the [...] Onset Heart Father Allergies: Tramadol Outpatient Medications: [id number]-ZAUINYBVV-FIMH ORAL Take by mouth. diclofenac (VOLTAREN) 1 [...] personally reviewed by me Data Reviewed from [facility] (in addition to that noted in HPI, and Past histories above): CMP, CBC Testing data, personally reviewed and interpreted by me: PFT, Imaging, Labs, CVS data. Assessment: Sav Raymundo is a 74 year old male presents for evaluation/follow-up of: for chronic cough and recurrent right-sided pleural effusion s/p R-VATS pleural biopsy, right construction equipment mechanic helper and doxycycline pleurodesis, right Pleurx catheter insertion, [...] test neg, EF >50%, Repeat echo in [facility] pending-scheduled on March 26 Problems: (R05.3) Chronic cough (primary encounter diagnosis) (J90) Pleural effusion (R09.1) Pleuritis (J84.9) Interstitial pulmonary disease (HCC) (I31.39) Pericardial effusion (noninflammatory) (I31.9) Pericarditis, unspecified chronicity, unspecified type Vaccines: current except flu shot PMH:pleural effusion, fluid overload/CHF, chronic cough - local PCP, has [facility] PCP, Dr. Flood (Thoracic), scheduled to see automobile relocation engineer in [facility] [place] Social:Lives near [place], in own house, with , no pets, adult kids, just 1 daughter who lives in [place], 2 grand-kids, no lung disease in the [...] which included preparing to see the patient, [id number] patient care, completing clinical documentation, obtaining and/or reviewing separately obtained history, performing a medically appropriate examination, counseling and educating the pat ient/family/caregiver, ordering medications, tests, or procedures, independently interpreting results (not separately reported), and care coordination (not separately reported). Louise Cesar MD documented in this encounterOhiohealth Southeastern Medical Center10-01-2024 Nurse Note* Jacqueline García RN - 03/17/2024 10:17 AM EDT Sav Raymundo is a very pleasant 74 year old male who presents today for pleural effusion (November 19), still has chest drainage tube Pleurex tube After surgery, fluid still gathering around right lung. Last seen by Pulmonary Doctor? Dr. Clemente in [facility]. Outside of [facility]. Is Dr. Cesar on Care Team as Primary Grade Teacher? no Meds reviewed - Refills pended?no Since last seen Have you had any resp illnessses, COVID, exacerbations or recent visits to ER?hospital/Urgent-Care? [place] December 19 x 1 week, Vaccines: Immunization [...] vaccine, recombinant (SHINGRIX) 08/30/2018 Modified Medical Research [place] Dyspnea Scale (MMRC) I stop for breath after walking about 100 yards or after a few minutes on level ground 3 Patient Entered Questionnaires 10/23/2023 PROMIS Global Health - (T-Scores - the mean of general population = 50. Five points is a clinicallymeaningful difference.) Physical T-Score 44.9 Mental T-Score 43.5 [facility] Nurse Note* Jacqueline García RN - 03/17/2024 10:17 AM EDT Sav Raymundo is a very pleasant 74 year old male who presents today for pleural effusion (November 19), still has chest drainage tube Pleurex tube After surgery, fluid still gathering around right lung. Last seen by Pulmonary Doctor? Dr. Clemente in [facility]. Outside of [facility]. Is Dr. Cesar on Care Team as Primary Grade Teacher? no Meds reviewed - Refills pended?no Since last seen Have you had any resp illnessses, COVID, exacerbations or recent visits to ER?hospital/Urgent-Care? [place] December 19 x 1 week, Vaccines: Immunization [...] vaccine, recombinant (SHINGRIX) 08/30/2018 Modified Medical Research [place] Dyspnea Scale (MMRC) I stop for breath after walking about 100 yards or after a few minutes on level ground 3 Patient Entered Questionnaires 10/23/2023 PROMIS Global Health - (T-Scores - the mean of general population = 50. Five points is a clinicallymeaningful difference.) Physical T-Score 44.9 Mental T-Score 43.5 documented in this encounterOhiohealth Southeastern Medical Center10-01-2024 History of Present illness Narrative* [...] PATIENT PRESENTS WITH AN IMPLANTABLE OR ATTACHED TALENT SCOUT: N/A RADIOLOGY DEPARTMENT: General X-ray: Exam(s) Completed: Chest X-Ray PERIPHERAL IV DATA: Not applicable SIGNED BY: Lilia CANTU(Sandee) March 17, 2024 8:38 AM documented in this encounterOhiohealth Southeastern Medical Center10-01-2024 NoteHNO ID: [id number] Author: ALAN DELGADO RT(R) Service: Radiology Author [...] PATIENT PRESENTS WITH AN IMPLANTABLE OR ATTACHED TALENT SCOUT: N/A RADIOLOGY DEPARTMENT: General X-ray: Exam(s) Completed: Chest X-Ray PERIPHERAL IV DATA: Not applicable SIGNED BY: Lilia CANTU(R) March 17, 2024 8:38 [facility]10-01-2024 NoteHNO ID: [id number] Author: CHELSY HILLS RRT Service: ? Author Type: Registered Resp Therapist Type: Progress Notes Filed: 03/17/2024 08:16 Note Text: PULM FUNCTION: Provider: Katerina Bravo APRN.CNP Spirometry: 1 Exhaled Nitric Oxide: [address] [place], [place] [address]10-01-2024 History of Present illness Narrative* Chelsy Hills RRT - 03/17/2024 8:16 AM EDT PULM FUNCTION: Provider: Katerina Bravo APRN.CNP Spirometry: 1 Exhaled Nitric Oxide: 1 documented in this encounterOhiohealth Southeastern Medical Center10-01-2024 NoteHNO ID: [id number] Author: CHELSY HILSL RRT Service: ? Author Type: Registered Resp [...] Raymundo DATE: March 17, 2024 TIME: 8:16 [facility]10-01-2024 Procedure note* Chelsy Hills, YAZMIN - 03/17/2024 8:16 AM EDTAssociated Order(s): NITRIC [...] NAME: Chelsy Hills RRT PATIENT NAME: Sav Rayumndo DATE: March 17, 2024 TIME: 8:16 AM [facility] Procedure note* Chelsy Hills RRT [...] 2024 TIME: 8:16 AM documented in this encounterOhiohealth Southeastern Medical Center09-17-2024 Telephone encounter Note * Telephone Encounter - Wes Lorenzana RN - 03/03/2024 10:55 AM EDT Images from the original note were not included. [facility] Phone Encounter DATE of SERVICE: 03/03/2024 TIME of SERVICE: 10:56 AM Status: FYI Service/Provider: Thoracic Surgery Sudish Remigio, M.D. Reason for call: Other Issue Contact information: [phone] Resolution: Sent to [employer] Comments: Please call [facility] EVAN Campos back at [phone]. Wes Lorenzana RN Date of Resolution: 03/03/2024 Time of Resolution 10:56 AM [facility] Miscellaneous Notes* Telephone Encounter - Wes Lorenzana RN - 03/03/2024 10:55 AM EDT Images from the original note were not included. [facility] Phone Encounter DATE of SERVICE: 03/03/2024 TIME of SERVICE: 10:56 AM Status: FYI Service/Provider: Thoracic Surgery Ronaldo Flood M.D. Reason for call: Other Issue Contact information: [phone] Resolution: Sent to [employer] Comments: Please call [facility] EVAN Campos back at [phone]. Wes Lorenzana RN Date of Resolution: 03/03/2024 Time of Resolution 10:56 AM documented in this encounterOhiohealth Southeastern Medical Center09-17-2024 Telephone encounter Note * Telephone Encounter - Wes Lorenzana RN - 03/03/2024 10:50 AM EDT [facility] called back. Please give call when able. [facility] Miscellaneous Notes* Telephone Encounter - Wes Lorenzana RN - 03/03/2024 10:50 AM EDT [facility] called back. Please give call when able. * Telephone Encounter - Tita Landry APRN.CNP - 03/03/2024 10:46 AM EDT Returned [facility] Beth GORDON's phone call. States patient's [...] Dr. Hopper's office to update him. Instructed [facility] RN to increase draining to three times weekly until output slows back down. Instructed to have patient call Dr. Hopper's office to schedule an appointment for evaluation of worsening edema and weight gain. Tita Landry APRN.CNP 03/03/2024 10:46 AM * Telephone Encounter - Sherie Payne RN - 03/03/2024 9:54 AM EDT Beth from [facility] [phone] She wanted to speak with Tita Rodriguez CNP. documented in this encounterOhiohealth [facility]heastern Medical Center09-17-2024 Telephone encounter Note * Telephone Encounter - Tita Landry APRN.CNP - 03/03/2024 10:46 AM EDT Returned [facility] Beth GORDON's phone call. States patient's [...] Dr. Hopper's office to update him. Instructed [facility] RN to increase draining to three times weekly until output slows back down. Instructed to have patient call Dr. Hopper's office to schedule an appointment for evaluation of worsening edema and weight gain. Tita Landry APRN.TRUCK BODY BUILDER 03/03/2024 10:46 AM [facility]09-17-[facility]24 Telephone encounter Note* Telephone Encounter - Sherie Payne RN - 03/03/2024 9:54 AM EDT Beth from [facility] [phone] She wanted to speak with Tita Rodriguez CNP. [facility]09-06-[facility] Telephone encounter Note* Telephone Encounter - Patricia Bermudez RN - 02/21/2024 10:14 AM EDT spoke with [facility] RN Beth , pt notes he [...] drain pleurex at home on their own) [phone] [facility] RN. will review updates above with TRUCK BODY BUILDER/MD and await any updates appt with yovani and margaret 03/17 and mamta 04/13 for followup Patricia Bermudez RN [facility]09-06-2024 Miscellaneous Notes* Telephone Encounter - Patricia Bermudez RN - 02/21/2024 10:14 AM EDT spoke with [facility] RN Beth , pt notes he [...] pleurex at home on their own) PH [phone] [facility] RN. will review updates above with CURT/ and await any updates appt with yovani and margaret 03/17 and mamta 04/13 for followup Patricia Bermudez RN documented in this encounterOhiohealth Southeastern Medical Center08-28-2024 History of Present illness Narrative* [...] excursion. Lungs clear to auscultation.+Pleurax catheter Heart: Wilber normal. Precordium quiet. RRR. Normal HS with [...] 200 MG TABLET - Will see a automobile relocation engineer on 04/13/2024 2. Primary hypertension - ICD9: [...] 2024 TIME: 11:22 AM documented in this encounterOhiohealth Southeastern Medical Center08-27-2024 History of Present illness Narrative* [...] has no purpura and a negative Rumpel White Owl sign. Pupils are equal at 2 mm [...] reviewing the medication list, performing clinical documentation, ppuu-cb-kevy history, the examination, counseling the patient, ordering medications, tests or procedures and communicating the results to this patient. An opportunity for this individual to ask questions was provided. Understanding of the information given, the conclusions of this visit and my recommendations were acknowledged by Mr. Raymundo. Yehuda Dial MD documented in this encounterOhiohealth Southeastern Medical Center08-20-2024 NoteHNO ID: [id number] Author: TITA LANDRY APRN.CNP Service: ? Author Type: Nurse Practitioner Type: Progress Notes Filed: 02/05/2024 16:19 Note Text: Heart, Vascular and Thoracic [place] DEPARTMENT OF THORACIC SURGERY OUTPATIENT VISIT DATE February 04, 2024 OUTPATIENT VISIT TYPE ESTABLISHED PT NAME: Sav Cantu [facility] NO: [id number] THORACIC SURGEON: Ronaldo Flood M.D. DATE OF SERVICE: 02/04/2024 PRINCIPAL DX: Pleural Effusion SURGICAL HX 11/20/2023: R VATS pleural biopsy, right construction equipment mechanic helper and doxycycline pleurodesis, right Pleurx catheter insertion, [...] patient underwent R VATS pleural biopsy, right construction equipment mechanic helper and doxycycline pleurodesis, right Pleurx catheter insertion, right 20Fr chest tube insertion. He was hospitalized 12/20/23 for anasarca, possible autoimmune disease, recurrent pleural effusion. Imaging did not reveal any acute findings. Patient was admitted to [facility] and started on lasix drip, improving anasarca and pleural effusion. Pleurx catheter was drained daily with significantly decreasing [phone]. He was worked up for an autoimmune [...] denies any fevers, chills, (more content not included)...[facility] 02-04-2024 History of Present illness Narrative* Tita Landry, LETICIA.TRUCK BODY BUILDER - 02/04/2024 1:28 PM EDT Heart, Vascular and Thoracic [place] DEPARTMENT OF THORACIC SURGERY OUTPATIENT VISIT DATE February 04, 2024 OUTPATIENT VISIT TYPE ESTABLISHED PT NAME: Sav Raymundo [facility] NO: [id number] THORACIC SURGEON: Ronaldo Flood M.D. DATE OF SERVICE: 02/04/2024 PRINCIPAL DX: Pleural Effusion SURGICAL HX 11/20/2023: R VATS pleural biopsy, right construction equipment mechanic helper and doxycycline pleurodesis, right Pleurx catheter insertion, [...] 11/20/2023, patient underwent R VATS pleuralbiopsy, right construction equipment mechanic helper and doxycycline pleurodesis, right Pleurx catheter insertion, right 20Fr chest tube insertion. He was hospitalized 12/20/23 for anasarca, possible autoimmune disease, recurrent pleural effusion. Imaging did not reveal any acute findings. Patient was admitted to [facility] and started on lasix drip, improving anasarca and pleural effusion. Pleurx catheter was drained daily with significantly decreasing output [phone]. He was worked up for an autoimmune [...] He is scheduled to see PCP and Integrated Marketing Specialist next week. He has followed-up with local Primary Grade Teacher, and was referred to Primary Grade Teacher at [facility], which is scheduled on 03/17 with spirometry. Right pleurx drainage has significantly decreased since last visit; now less than 350cc/drainage every MWF. Right pleurx catheter with 150 cc of awilda drainage out in clinic today. IMPRESSION: 73 year old male with pmh significant for recurrent right pleural effusion s/p R VATS pleural biopsy, right construction equipment mechanic helper and doxycycline pleurodesis, right Pleurx catheter insertion, right 20Fr chest tube insertion on 11/20/[address] Flood. He was hospitalized 12/20/23 for anasarca, possible autoimmune disease, and recurrent pleural effusion. Imaging did not reveal any acute findings. Patient was admitted to [facility] and started on lasix drip, with improving anasarca and pleural effusion. Pleurx catheter was drained daily with significantly decreasing output [phone]. He was worked up for an autoimmune [...] information, and changes appropriately documented/adjusted. Tita Landry APRN.TRUCK BODY BUILDER documented in this encounterOhiohealth Southeastern Medical Center08-05-2024 Telephone encounter Note * Telephone Encounter - Jahaira Wood - 01/20/2024 3:35 PM EDT Received Pulmonary office note 01/15/24 from [facility] Record scanned in [employer] Jahaira Wood, windows server administrator [facility]08-05-2024 Miscellaneous Notes* Telephone Encounter - Jahaira Wood - 01/20/2024 3:35 PM EDT Received Pulmonary office note 01/15/24 from [facility] Record scanned in [employer] Jahaira Wood, windows server administrator documented in this encounterOhiohealth Southeastern Medical Center07-31-2024 History of Present illness Narrative* [...] excursion. Lungs decreased BS in bases Heart: Wilber normal. Precordium quiet. RRR. Normal HS with [...] 2024 TIME: 12:34 PM documented in this encounterOhiohealth Southeastern Medical Center07-22-2024 History of Present illness Narrative* Yehuda Dial MD - 01/06/2024 5:01 PM EDT SUBJECTIVE: The chief complaint is right pleural effusion Mr. Raymundo relates that the visiting nurse comes to his house and drains 500 to 1000+ cc of pleural fluid every 2 days. He is concerned about taking a vacation to [place] for that reason. In addition, he complains [...] reviewing the medication list, performing clinical documentation, qbhf-tg-htyd history, the examination, counseling the patient, ordering medications, tests or procedures and communicating the results to this patient. An opportunity for this individual to ask questions was provided. Understanding of the information given, the conclusions of this visit and my recommendations were acknowledged by Mr. Raymundo. Yehuda Dial MD documented in this encounterOhiohealth Southeastern Medical Center07-22-2024 History of Present illness Narrative* Katerina Bravo APRN.TRUCK BODY BUILDER - 01/06/2024 3:53 PM EDT Dear Ruma Zavarella PA-C, Thank you for the referral of Sav Raymundo for evaluation. Chronic Cough E-consult - Chart Reviewed. Chronic Cough: x 04/2024 History of prior Pulm evaluation: yes; Dr. Clemente with [facility] Prior PFTs: unable to locate Prior [...] locate. Will need to request records from [facility] where he salon designer is. Please arrange the following testing to be done prior to visit: Spirometry with dilator if obstructed Nitric Oxide Katerina Bravo APRN Pulmonary Medicine 01/06/2024 documented in this encounterOhiohealth Southeastern Medical Center07-22-2024 History of Present illness Narrative* Ruma Oshea PA-C - 01/06/2024 2:00 PM EDT Images from the original note were not included. [place] - OUTPATIENT THORACIC SURGERY CLINIC NOTE PT NAME: Sav Raymundo [facility] NO: [id number] THORACIC SURGEON: Ronaldo Flood M.D. DATE OF SERVICE: 01/06/2024 PRINCIPAL DX: Pleural Effusion SURGICAL HX 11/20/2023: R VATS pleural biopsy, right construction equipment mechanic helper and doxycycline pleurodesis, right Pleurx catheter insertion, [...] any acute findings. Patient was admitted to [facility] and started on lasix drip, improving anasarca and pleural effusion. Pleurx catheter was drained daily with significantly decreasing output [phone]. He was worked up for an autoimmune [...] clinic. Patient does have follow up with automobile relocation engineer today and salon designer next week. Will fax over recent medical information to salon designer. Patient also going on a bus trip [...] effusion s/p R VATS pleural biopsy, right construction equipment mechanic helper and doxycycline pleurodesis, right Pleurx catheter insertion, [...] other day. PLAN: - follow up with SEAL MIXER in 4 weeks with CXR; sooner if experiencing new or worsening symptoms - continue to drain pleurx every other day / when symptomatic - follow up with salon designer Dr. Clemente - referral placed for chronic cough clinic - will send over OR report, pathology report, recent hospital discharge, recent CXR report, and today's clinic note to salon designer Dr. Bryn Oshea PA-C documented in this encounterOhiohealth Southeastern Medical Center07-22-2024 NoteHNO ID: [id number] Author: RUMA OSHEA PA-C Service: ? Author Type: Physician Coal Handler Type: Progress Notes Filed: 01/06/2024 14:58 Note Text: [place] - OUTPATIENT THORACIC SURGERY CLINIC NOTE PT NAME: Sav Raymundo [facility] NO: [id number] THORACIC SURGEON: Ronaldo Flood M.D. DATE OF SERVICE: 01/06/2024 PRINCIPAL DX: Pleural Effusion SURGICAL HX 11/20/2023: R VATS pleural biopsy, right construction equipment mechanic helper and doxycycline pleurodesis, right Pleurx catheter insertion, [...] any acute findings. Patient was admitted to [facility] and started on lasix drip, improving anasarca and pleural effusion. Pleurx catheter was drained daily with significantly decreasing output [phone]. He was worked up for an autoimmune [...] clinic. Patient does have follow up with automobile relocation engineer today and salon designer next week. Will fax over recent medical information to salon designer. Patient also going on a bus trip [...] effusion s/p R VATS pleural biopsy, right construction equipment mechanic helper and doxycycline pleurodesis, right Pleurx catheter insertion, right 20Fr chest tube insertion on 11/20/[address] Flood. Patient overall doing well from a clinical standpoint. CXR from today is still pendin (more content not included)...[facility]07-22-2024 History of Present illness Narrative* Sherie [...] PATIENT PRESENTS WITH AN IMPLANTABLE OR ATTACHED TALENT SCOUT: No RADIOLOGY DEPARTMENT: General X-ray: Exam(s) Completed: Chest X-Ray PERIPHERAL IV DATA: Not applicable SIGNED BY: RT Abbi(Sandee) January 06, 2024 1:08 PM documented in this encounterOhiohealth Southeastern Medical Center07-22-2024 NoteHNO ID: [id number] Author: SHERIE CARRION RT(R) Service: Radiology Author [...] PATIENT PRESENTS WITH AN IMPLANTABLE OR ATTACHED TALENT SCOUT: No RADIOLOGY DEPARTMENT: General X-ray: Exam(s) Completed: Chest X-Ray PERIPHERAL IV DATA: Not applicable SIGNED BY: RT Abbi(R) January 06, 2024 1:08 PMB[facility]07-11-2024 NoteHNO ID: [id number] Author: LUPE BAUER RN Service: Care Management [...] Name of Caregiver: [facility] Transportation Arrangements Transportation Arrangements: Car Discharge Information Row Name ED to Hosp-Admission (Current) from 12/20/[address] Care Agency [facility] Start of Care -- agency will contact patient Spouse at bedside to transport home. DC arrangements confirmed with patient, spouse, [facility], and bedside nurse. 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 Nuclear Med Report: [id number] PLANAR and SPECT: Myocardial imaging of the chest with CT attenuation correction was performed at 3 hours post IV injection of Tc-99m Pyrophosphate. See administered doses below. 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 CT Dose R (more content not included)...[facility]07-10-2024 NoteHNO ID: [id number] Author: RAFIA TOVAR RT(R) Service: Nuclear Medicine [...] PATIENT PRESENTS WITH AN IMPLANTABLE OR ATTACHED TALENT SCOUT: No CREATININE: Creatinine Date Value Ref Range [...] safety can be found using this link: [email or web address] SIGNATURE: RT Seema(R) PATIENT NAME: Sav Raymundo DATE: December 25, 2023 TIME: 11:01 AM PAGER/CONTACT #:[facility]07-09-2024 NoteHNO ID: [id number] Author: JOSE ANTONIO HOPPER MD Service: Family [...] MD DATE: December 24, 2023 TIME: 8:05 [facility]07-08-2024 NoteHNO ID: [id number] Author: JOSE ANTONIO HOPPER MD Service: Family [...] MD DATE: December 23, 2023 TIME: 4:11 PMB[facility]07-08-2024 NoteHNO ID: [id number] Author: LUPE BAUER RN Service: Care Management [...] is active with [facility] for custodial and pleurx supplies. Plan home with resumption of [facility]. Will need home care orders for SN prior to discharge. CM following. SIGNATURE: Lupe Bauer RN PATIENT NAME: Sav Raymundo DATE: December 23, 2023 TIME: 2:04 PM PAGER/CONTACT #: [phone] NoteHNO ID: [id number] Author: RUMA OSHEA PA-C Service: Thoracic Surgery Author Type: Physician Coal Handler Type: Plan of Care Filed: 12/23/2023 07:53 Note Text: PLEASE PAGE [phone] WITH SURGICAL QUESTIONS OR CONCERNS. (This includes issues with chest tubes, surgical drains, feeding tubes, incisions or changes in clinical status). Thoracic Surgery - Plan of Care HPI: Sav Raymundo is a 73 y/o male referred by Alpa Oliva CNP for an opinion regarding management of recurrent right pleural effusion. 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, right Pleurx catheter insertion [...] Dwight Oshea PA-C 12/23/2023 7:48 AM PAGER [phone]07-07-2024 NoteHNO ID: [id number] Author: JOSE ANTONIO HOPPER MD Service: Family [...] visit: Most recent labs CBC: Recent Labs 12/22/23 0618 WBC 5.83 RBC 4.29 HB 12.7* HCT [...] MD DATE: December 22, 2023 TIME: 11:01 [facility]07-06-2024 NoteHNO ID: [id number] Author: TRACY ROBLES LSW Service: Care Management Author Type: Industrial Engineering Analyst Type: Care Mgt Initial Assessment Filed: 12/21/2023 13:04 Note Text: CARE MANAGEMENT: ASSESSMENT AND DISCHARGE PLAN SERVICE DATE: December 21, 2023 SERVICE TIME: 1:02 PM PCP: Yuli Mariscal DO Primary Contact: Extended Emergency Contact Information Primary Emergency Contact: Breanne(ROSEANNA New Address: [address] [place] [address] [place] [address] [facility] Mobile Relation: Spouse Secondary Emergency Contact: Breanne,(1st alt HCPOA) Srinivas Address: [address] [place] [address] Mobile Relation: Brother Admission Status: Inpatient Insurance Provider: [employer] MEDICARE PPO Discharge Planning requested by: Per Department Practice Potential Transition Plans To Be Determined;Home Care Advance Directives Current Advance Directive: Health Care Power of Boat Patcher Plastic;Living Will In Chart: Yes Current Living Arrangements and Support Lives with: Spouse/significant other Type of Residence: Support: How do you manage to accomplish the following: Independent: Ambulation Current Services/Equipment Current Post-Acute Service(s): Skilled Home Care Discharge Planning Patient Goal(s): Be able to go home, General wellness [place] Explained: [place] Given: Yes Level of Care [...] shortness of breath and increased pleural effusion. Felecia spoke with patients spouse who stated patient indpend from home with her. Patient active with [facility]- provides PE supplies- referral placed. Spouse aware floor CM to follow for dc needs NEED [facility] ORDER. SIGNATURE: BERTA Benson PATIENT NAME: Sav Raymundo DATE: December 21, 2023 TIME: 1:02 PM CONTACT #: .[facility]07-05-2024 NoteHNO ID: [id number] Author: TITA LANDRY APRN.CURT Service: ? Author Type: Nurse Practitioner Type: Progress Notes Filed: 01/19/2024 21:56 Note Text: Heart, Vascular and Thoracic [place] DEPARTMENT OF THORACIC SURGERY OUTPATIENT VISIT DATE December 20, 2023 OUTPATIENT VISIT TYPE ESTABLISHED PT NAME: Sav Raymundo CLINIC NO: [id number] THORACIC SURGEON: Ronaldo Flood M.D. DATE OF SERVICE: 12/20/2023 PRINCIPAL DX: Pleural Effusion SURGICAL HX 11/20/2023: R VATS pleural biopsy, right construction equipment mechanic helper and doxycycline pleurodesis, right Pleurx catheter insertion, [...] reactive proliferation. Drs. Della Subramanian and [facility] have also reviewed this case and [...] reports pain along bot (more content not included)...[place] [id number] History of Present illness Narrative* Tita Landry, LETICIA.TRUCK BODY BUILDER - 12/20/2023 1:43 PM EDT Heart, Vascular and Thoracic [place] DEPARTMENT OF THORACIC SURGERY OUTPATIENT VISIT DATE December 20, 2023 OUTPATIENT VISIT TYPE ESTABLISHED PT NAME: Sav Raymundo [facility] NO: [id number] THORACIC SURGEON: Ronaldo Flood M.D. DATE OF SERVICE: 12/20/2023 PRINCIPAL DX: Pleural Effusion SURGICAL HX 11/20/2023: R VATS pleural biopsy, right construction equipment mechanic helper and doxycycline pleurodesis, right Pleurx catheter insertion, [...] reactive proliferation. Drs. Della Subramanian and Zeus [facility] have also reviewed this case and [...] after his left pleurx was drained on / coughing. States he has been having a [...] effusion s/p R VATS pleural biopsy, right construction equipment mechanic helper and doxycycline pleurodesis, right Pleurx catheter insertion, [...] documented/adjusted. Tita Landry APRN.CURT documented in this encounterOhiohealth [facility] Medical Center07-02-2024 Miscellaneous Notes* Telephone Encounter - Pearl Lopez IEVAN - 12/17/2023 9:39 AM EDT Images from the original note were not included. [facility] [place] Phone Encounter DATE of SERVICE: 12/17/2023 TIME of SERVICE: 9:39 AM Status: Non-urgent, needs attention Service/Provider: Thoracic Surgery Ronaldo Flood M.D. Reason for call: Other Issue Contact information: [phone] Resolution: Sent to [email or web address] Comments: Received call from [facility] Nurse. States she saw patient yesterday. [...] he can wait to be seen thisfriday. [facility] will be there tomorrow. Please advise if any further recommendations Pearl Lopez RN Date of Resolution: 12/17/2023 Time of Resolution 9:39 AM documented in this encounterOhiohealth Southeastern Medical Center07-02-2024 Telephone encounter Note * Telephone Encounter - Pearl Lopez I, RN - 12/17/2023 9:39 AM EDT Images from the original note were not included. [facility] [place] Phone Encounter DATE of SERVICE: 12/17/2023 TIME of SERVICE: 9:39 AM Status: Non-urgent, needs attention Service/Provider: Thoracic Surgery Ronaldo Flood M.D. Reason for call: Other Issue Contact information: [phone] Resolution: Sent to [email or web address] Comments: Received call from [facility] Nurse. States she saw patient yesterday. [...] he can wait to be seen thisfriday. [facility] will be there tomorrow. Please advise if any further recommendations Pearl Lopez RN Date of Resolution: 12/17/2023 Time of Resolution 9:39 AM [facility]06-28-2024 NoteHNO ID: [id number] Author: TITA LANDRY APRN.TRUCK BODY BUILDER Service: ? Author Type: Nurse Practitioner Type: Progress Notes Filed: 01/16/2024 22:44 Note Text: Heart, Vascular and Thoracic [place] DEPARTMENT OF THORACIC SURGERY OUTPATIENT VISIT DATE December 13, 2023 OUTPATIENT VISIT TYPE ESTABLISHED PT NAME: Sav Cantu [facility] NO: [id number] THORACIC SURGEON: Ronaldo Flood M.D. DATE OF SERVICE: 12/13/2023 PRINCIPAL DX: Pleural Effusion SURGICAL HX 11/20/2023: R VATS pleural biopsy, right construction equipment mechanic helper and doxycycline pleurodesis, right Pleurx catheter insertion, right 20Fr chest tube insertion Surgical Pathology 11/20/2023: FINAL DIAGNOSIS A. Right pleura, biopsy: - Chronic pleuritis with mesothelial hyperplasia (see comment). B. Right pleura, biopsy: - Acute organizing and chronic pleuritis (see comment). SD/ 11/22/2023 Diagnosis Comment A. The biopsy contains [...] effusion s/p R VATS pleural biopsy, right construction equipment mechanic helper and doxycycline pleurodesis, right Pleurx catheter insertion, right 20Fr chest tube insertion on 11/20/[address] Flood. Patient overall doing (more content not included)...[facility]06-28-2024 History of Present illness Narrative* Tita Landry APRN.TRUCK BODY BUILDER - 12/13/2023 1:27 PM EDT Heart, Vascular and Thoracic [place] DEPARTMENT OF THORACIC SURGERY OUTPATIENT VISIT DATE December 13, 2023 OUTPATIENT VISIT TYPE ESTABLISHED PT NAME: Sav Raymundo CLINIC NO: [id number] THORACIC SURGEON: Ronaldo Flood M.D. DATE OF SERVICE: 12/13/2023 PRINCIPAL DX: Pleural Effusion SURGICAL HX 11/20/2023: R VATS pleural biopsy, right construction equipment mechanic helper and doxycycline pleurodesis, right Pleurx catheter insertion, right 20Fr chest tube insertion Surgical Pathology 11/20/2023: FINAL DIAGNOSIS A. Right pleura, biopsy: - Chronic pleuritis with mesothelial hyperplasia (see comment). B. Right pleura, biopsy: - Acute organizing and chronic pleuritis (see comment). SD/ 11/22/2023 Diagnosis Comment A. The biopsy contains [...] effusion s/p R VATS pleural biopsy, right construction equipment mechanic helper and doxycycline pleurodesis, right Pleurx catheter insertion, right 20Fr chest tube insertion on 11/20/[address] Flood. Patient overall doing well from a clinical standpoint. CXR from today is still pending; to my eye, shows stable right pleural effusion. Patient continues to drain large amounts from pleurx catheter every other day. PLAN: -Follow-up in 1 week with CXR and TRUCK BODY BUILDER visit; sooner if experiencing new/worsening clinical symptoms -Continue to drain pleurx every other day Part of this note was copied from my previous note, all content has been individually and thoroughly reviewed, updated as necessary, patient assessed with updated information, and changes appropriately documented/adjusted. Tita Landry APRN.TRUCK BODY BUILDER documented in this encounterOhiohealth [facility]heastern [facility] Center06-18-2024 Telephone encounter Note * Telephone Encounter - Lilia Ornelas - 12/03/2023 4:42 PM EDT Confirmed date and time of apts w/ patient and his via phone. Both have access to MyChart. PF 12/13/2023 at [facility] at 1:30pm Est [facility] Per staff message from [facility]: please schedule patient for follow-up with me with CXR in 1 week [facility]06-18-[facility] Miscellaneous Notes* Telephone Encounter - Lilia Orenlas - 12/03/2023 4:42 PM EDT Confirmed date and time of apts w/ patient and his via phone. Both have access to MyChart. PF 12/13/2023 at [facility] at 1:30pm Est 1 week follow up w/ [facility] at 2pm Per staff message from [facility]: please schedule patient for follow-up with me with CXR in 1 week documented in this encounterOhiohealth Southeastern Medical Center06-18-2024 Nurse Note* Jessica Enriquez RN - 12/03/2023 1:47 PM EDT Patient stated he was having SOB. Pleur x drained yesterday for 1075ml. Attempted to drain pleur x today no drainage present. Applied dressing. Jessica Enriquez RN [facility]06-18-[facility] Nurse Note* Jessica Enriquez RN - 12/03/2023 1:47 PM EDT Patient stated he was having SOB. Pleur x drained yesterday for 1075ml. Attempted to drain pleur x today no drainage present. Applied dressing. Jessica Enriquez, RN documented in this encounterOhiohealth Southeastern Medical Center06-18-2024 NoteHNO ID: [id number] Author: TITA LANDRY APRN.CURT Service: ? Author Type: Nurse Practitioner Type: Progress Notes Filed: 12/30/2023 22:10 Note Text: Heart, Vascular and Thoracic [place] DEPARTMENT OF THORACIC SURGERY OUTPATIENT VISIT DATE December 03, 2023 OUTPATIENT VISIT TYPE ESTABLISHED PT NAME: Sav Cantu [facility] NO: [id number] THORACIC SURGEON: Ronaldo Flood M.D. DATE OF SERVICE: 12/03/2023 PRINCIPAL DX: Recurrent Right Pleural Effusion SURGICAL HX 11/20/2023: R VATS pleural biopsy, right construction equipment mechanic helper and doxycycline pleurodesis, right Pleurx catheter insertion, [...] reactive proliferation. Drs. Della Subramanian and [facility] also reviewed this case and agree [...] patient underwent R VATS pleural biopsy, right construction equipment mechanic helper and doxycycline pleurodesis, right Pleurx catheter insertion, [...] States pleurx was last drained yesterday by [facility] with 1,025 cc out. Did not drain in clinic today. Reviewed final pathology results which showshronic pleuritis with mesothelial hyperplasia, with no definitive evidence of malignancy. Patient's voices frustration that the cause of the patient's recurrent effusion is still (more content not included)...[facility]06-18-[facility] History of Present illness Narrative* Tita Landry APRN.TRUCK BODY BUILDER - 12/03/2023 1:02 PM EDT Heart, Vascular and Thoracic [place] DEPARTMENT OF THORACIC SURGERY OUTPATIENT VISIT DATE December 03, 2023 OUTPATIENT VISIT TYPE ESTABLISHED PT NAME: Sav Raymundo CLINIC NO: [id number] THORACIC SURGEON: Ronaldo Flood M.D. DATE OF SERVICE: 12/03/2023 PRINCIPAL DX: Recurrent Right Pleural Effusion SURGICAL HX 11/20/2023: R VATS pleural biopsy, right construction equipment mechanic helper and doxycycline pleurodesis, right Pleurx catheter insertion, right 20Fr chest tube insertion Surgical Pathology 11/20/2023: Component FINAL DIAGNOSIS A. Right pleura, biopsy: - Chronic pleuritis with mesothelial hyperplasia (see comment). B. Right pleura, biopsy: - Acute organizing and chronic pleuritis (see comment). SD/ 11/22/2023 Diagnosis Comment A. The biopsy contains [...] 11/20/2023, patient underwent R VATS pleuralbiopsy, right construction equipment mechanic helper and doxycycline pleurodesis, right Pleurx catheter insertion, [...] States pleurx was last drained yesterday by [facility] with 1,025 cc out. Did not [...] effusion s/p R VATS pleural biopsy, right construction equipment mechanic helper and doxycycline pleurodesis, right Pleurx catheter insertion, right 20Fr chest tube insertion on 11/20/[address] Flood. Patient overall doing well from a clinical standpoint. CXR from today is still pending; to my eye, shows stable right pleural effusion. Patient continues to drain large amounts from pleurx catheter every other day. PLAN: -Follow-up in 1 week with CXR and TRUCK BODY BUILDER visit; sooner if experiencing new/worsening clinical symptoms -Continue to drain pleurx every other day Part of this note was copied from my previous note, all content has been individually and thoroughly reviewed, updated as necessary, patient assessed with updated information, and changes appropriately documented/adjusted. Tita Landry APRN.TRUCK BODY BUILDER documented in this encounterOhiohealth Southeastern Medical Center06-18-2024 History of Present illness Narrative* [...] PATIENT PRESENTS WITH AN IMPLANTABLE OR ATTACHED TALENT SCOUT: No RADIOLOGY DEPARTMENT: General X-ray: Exam(s) Completed: Chest X-Ray PERIPHERAL IV DATA: Not applicable SIGNED BY: RT Betty(Sandee) December 03, 2023 12:26 PM documented in this encounterOhiohealth Southeastern Medical Center06-18-2024 NoteHNO ID: [id number] Author: ISAMAR GUEVARA RT (R) Service: Radiology [...] PATIENT PRESENTS WITH AN IMPLANTABLE OR ATTACHED TALENT SCOUT: No RADIOLOGY DEPARTMENT: General X-ray: Exam(s) Completed: Chest X-Ray PERIPHERAL IV DATA: Not applicable SIGNED BY: IMAN Hernández) December 03, 2023 12:26 PMB[facility]06-[facility] History of Present illness Narrative* Tita Landry LETICIA.TRUCK BODY BUILDER - 11/29/2023 3:00 PM EDT Heart, Vascular and Thoracic [place] DEPARTMENT OF THORACIC SURGERY OUTPATIENT VISIT DATE November 29, 2023 OUTPATIENT VISIT TYPE ESTABLISHED PT NAME: Sav Raymundo CLINIC NO: [id number] THORACIC SURGEON: Ronaldo Flood M.D. DATE OF SERVICE: 11/29/2023 PRINCIPAL DX: Pleural Effusion SURGICAL HX 11/20/2023: R VATS pleural biopsy, right construction equipment mechanic helper and doxycycline pleurodesis, right Pleurx catheter insertion, [...] 11/20/2023, patient underwent R VATS pleuralbiopsy, right construction equipment mechanic helper and doxycycline pleurodesis, right Pleurx catheter insertion, [...] (dark awilda with foam) 11/26: 450 cc (upsetter setter up than last time with foam) I drained 790 cc of serosanguinous drainage in clinic today. Recommend draining pleurx daily until output slows down, but states she is unable to and [facility] comes every other day. Reviewed with [...] effusion s/p R VATS pleural biopsy, right construction equipment mechanic helper and doxycycline pleurodesis, right Pleurx catheter insertion, [...] with KDUR supplementation for edema Tita Landry APRN.TRUCK BODY BUILDER documented in this encounterOhiohealth Southeastern Medical Center06-14-2024 NoteHNO ID: [id number] Author: TITA LANDRY APRN.TRUCK BODY BUILDER Service: ? Author Type: Nurse Practitioner Type: Progress Notes Filed: 12/30/2023 21:20 Note Text: Heart, Vascular and Thoracic [place] DEPARTMENT OF THORACIC SURGERY OUTPATIENT VISIT DATE November 29, 2023 OUTPATIENT VISIT TYPE ESTABLISHED PT NAME: Sav Raymundo CLINIC NO: [id number] THORACIC SURGEON: Ronaldo Flood M.D. DATE OF SERVICE: 11/29/2023 PRINCIPAL DX: Pleural Effusion SURGICAL HX 11/20/2023: R VATS pleural biopsy, right construction equipment mechanic helper and doxycycline pleurodesis, right Pleurx catheter insertion, [...] patient underwent R VATS pleural biopsy, right construction equipment mechanic helper and doxycycline pleurodesis, right Pleurx catheter insertion, [...] (dark awilda with foam) 11/26: 450 cc (upsetter setter up than last time with foam) I drained [...] effusion s/p R VATS pleural biopsy, right construction equipment mechanic helper and doxycycline pleurodesis, right Pleurx catheter insertion, [...] with KDUR supplementation for edema Tita Landry, LETICIA.[facility]05-28-2024 History of Present illness Narrative* Ronaldo [...] . Huy Robles RN documented in this encounterOhiohealth Southeastern Medical Center05-28-2024 Nurse Note* Huy Robles RN - 11/12/2023 2:27 PM EDT PATIENT EDUCATION The following was evaluated: Motivation To Learn: Interested Family/Significant Other Support: High - Very involved in pt care Cognitive Ability: Alert and oriented Patient Learns Best By: Multiple Methods The Following Influencing Factors Were Barriers To This Education Session: No barriers Manager Loan Present: Not Applicable The Following Physical Limitations [...] Robles RN. In Department of THORACIC CLINIC. [facility]05-[facility] Nurse Note* Huy Robles RN - 11/12/2023 2:27 PM EDT PATIENT EDUCATION The following was evaluated: Motivation To Learn: Interested Family/Significant Other Support: High - Very involved in pt care Cognitive Ability: Alert and oriented Patient Learns Best By: Multiple Methods The Following Influencing Factors Were Barriers To This Education Session: No barriers Manager Loan Present: Not Applicable The Following Physical Limitations [...] Department of THORACIC CLINIC. documented in this encounterOhiohealth Southeastern Medical Center05-28-2024 History of Present illness Narrative* Mariam Sy, howsimple - 11/12/2023 10:00 AM EDT RADIOLOGY SERVICE [...] PATIENT PRESENTS WITH AN IMPLANTABLE OR ATTACHED TALENT SCOUT: No CREATININE: Creatinine Date Value Ref Range [...] Discontinued PROCEDURE TYPE: NM Stress: 11.8 mCi [id number] was administered IV for Rest Imaging at 10:18AM by GRECIA BARAJAS. 41.8 mCi [id number] was administered IV for Stress Imaging at 1118 by Mariam Patterson ADMINISTRATION TIME: PATIENT DISCHARGED TO: Ambulatory patient, left [place] department area. A Diagnostic radioactive procedure has taken place, with no further precautions necessary other than routine body substance precautions. More information regarding radiation safety can be found usingthis link: [email or web address] 20Diagnostic%20Nuclear%20Medicine%[email or web address] SIGNATURE: RT Lebron(R) PATIENT NAME: Sav [...] Reviewed and unchanged MEDICATIONS REVIEWED BY: Special Needs Bus Driver PROCEDURE TYPE: NM STRESS: 0.4 mg of Lexiscan was administered IV at 1018 by Vibha Dempsey RN . Reversal agent used: None. Expiration date: 06/2025 Lot#: [id number] IV SITE: Ambulatory: A Saline lock was inserted per protocol POST EXAM PIV STATUS: Discontinued PATIENT DISCHARGED TO: Ambulatory patient, left [place] department area. A Diagnostic radioactive procedure has taken place, with no further precautions necessary other than routine body substance precautions. More information regarding radiation safety can be found usingInstamojo link: [email or web address] 20Diagnostic%20Nuclear%20Medicine%[email or web address] SIGNATURE: Vibha Dempsey RN PATIENT NAME: Sav Raymundo DATE: November 12, 2023 TIME: 11:14 AM PAGER/CONTACT #: documented in this encounterOhiohealth Southeastern Medical Center05-28-2024 History of Present illness Narrative* [...] PATIENT PRESENTS WITH AN IMPLANTABLE OR ATTACHED TALENT SCOUT: No RADIOLOGY DEPARTMENT: General X-ray: Exam(s) Completed: Chest X-Ray PERIPHERAL IV DATA: Not applicable SIGNED BY: RT Hudson(R) November 12, 2023 8:12 AM documented in this encounterOhiohealth Southeastern [facility] Center05-23-2024 Telephone encounter Note * Telephone [...] 6/5 pt voiced understanding Patricia Bermudez RN [facility]05-23-2024 Miscellaneous Notes* Telephone Encounter - [...] understanding Patricia Bermudez RN documented in this encounterOhiohealth Southeastern Medical Center05-13-2024 History of Present illness Narrative* [...] this time. Patricia Bermudez MSN, RN Nurse Messenger Copy Thoracic Surgery [facility] * Patricia Bermudez RN - 10/25/2023 11:43 AM EDT October 25, 2023 11:43 AM left message on patient mobile phone to discuss surgical planning, await call back. Tentative plans for: OR 11/20/2023 pending patient acceptance Patricia Bermudez RN documented in this encounterOhiohealth Southeastern Medical Center05-10-2024 History of Present illness Narrative* Ronaldo Flood MD, PhD - 10/25/2023 10:26 AM EDT [facility] STAFF PHYSICIAN NOTE OF PERSONAL INVOLVEMENT IN [...] THORACIC SURGERY OUTPATIENT CONSULT NOTE Sav Raymundo [id number] Requesting Provider: Dr. Sintia Clemente Thoracic Physician: [...] by: Mark Malone MD documented in this encounterOhiohealth Southeastern Medical Center05-06-2024 Telephone encounter Note * Telephone Encounter - Jahaira Wood - 10/21/2023 11:41 AM EDT Received ED visit notes 10/18/23 from [facility] Records scanned in [facility] CTA Chest and Chest XR imaging requested from [facility] Jahaira Wood, windows server administrator [facility]05-06-2024 Miscellaneous Notes* Telephone Encounter - Jahaira Wood - 10/21/2023 11:41 AM EDT Received ED visit notes 10/18/23 from [facility] Records scanned in [facility] CTA Chest and Chest XR imaging requested from [facility] Jahaira Wood, windows server administrator * Telephone Encounter - Patricia Bermudez RN - 10/21/2023 10:08 AM EDT Images from the original note were not included. Thoracic Surgery Consultation - review of records for appointment scheduling Received medical records from the office of Sintia Clemente [address] [place] [id number] Patient is being referred to Ronaldo Flood MD, PhD by Sintia Clemente for Pleural Effusion Outside hospital records scanned Pathology: Procedures: right thoracentesis 10/01/23 520ml thoracentesis 09/04/23 right [address] chest done at [facility] for Shortness of breath - pt to [...] pt aware and agreeable Patricia Bermudez RN * Telephone Encounter - Jahaira Wood - 10/16/2023 9:16 AM EDT LOCAL PATIENT Received Fax from Dr. Sintia Clemente Sav Raymundo is being referred to Ronaldo Flood M.D., Ph. D. by Sintia Clemente [address] [place] [id number] Patient diagnosis/Reason for consult: Pleural Effusion Recurrent Referral triage process explained: Yes Patient will receive a call from Thoracic NPM after triage review with surgeon to discuss any additional testing and/or consults that will be scheduled. Pt will then receive a call from our scheduling office for scheduling. Please call pt at [phone]. Patient was informed consultation could be at [facility] or [facility]: No Patient Registration: Registration complete/updated: yes Insurance card(s) scanned in [facility] with in the past year: Yes: Date: 10/16/23 Pt's MyChart is inactive. Ok to communicate to pt via [employer] not asked Medical Records: Records in [facility] (internal CC records): No Imaging in [facility] (internal CC records): No Care Everywhere - queried yes, downloaded Yes Linked Outside Organizations (list): [facility] Records Requested: no Date: N/A Outside Hospital(s) requested records from: Dr. Clemente Received: yes Uploaded: Yes. Waiting on additional records: No. Missing (list): N/A OS Pathology Slides Requested: no Date: N/A Outside Hospital(s) slides requested from: n/a [facility] Radiology Imaging Requested: yes Date: October 16, 2023 Outside Hospital(s) requested imaging from: [facility]. Imaging will be received via Electronic Transfer Received: Yes Imaging uploaded: Yes Waiting on additional: No Missing (list): n/a Additional providers added to Care Teams: Yes Additional Notes/Comments: Pt's spouse states pt is waiting to be scheduled for another CT Chest locally. Enct routed to: Margaret Vasquez NPM for Triage Jahaira Wood, windows server administrator documented in this encounterOhiohealth Southeastern Medical Center05-06-2024 Telephone encounter Note * Telephone Encounter - Patricia Bermudez RN - 10/21/2023 10:08 AM EDT Images from the original note were not included. Thoracic Surgery Consultation - review of records for appointment scheduling Received medical records from the office of Snitia Clemente [address] [place] [id number] Patient is being referred to Ronaldo Flood MD, PhD by Sintia Clemente for Pleural Effusion Outside hospital records scanned Pathology: Procedures: right thoracentesis 10/01/23 520ml thoracentesis 09/04/23 right [address] chest done at [place] for Shortness of breath - pt to bring imaging disc CT ( abd, pelvis): 09/12/23 Cardiopulmonary Testing PFT's/Six: requested Cardiac: echo 09/04/23 Office Notes/Consults 10/09/2023 bryn puldiana 09/25/[address] clemente History of: No family history on file. No past medical history on file. No past surgical history on file. Social History Tobacco Use Smoking status: Never Smokeless tobacco: Never Request consult with dr flood 10/24/2023 @ 12, pt aware and agreeable Patricia Bermudez, RN [facility]05-01-2024 Telephone encounter Note* Telephone Encounter - Jahaira Wood - 10/16/2023 9:16 AM EDT LOCAL PATIENT Received Fax from Dr. Sintia Cantu Breanne is being referred to Ronaldo Flood M.D., Ph. D. by Sintia Clemente [address] [place] [address] Patient diagnosis/Reason for consult: Pleural Effusion Recurrent Referral triage process explained: Yes Patient will receive a call from Thoracic NPM after triage review with surgeon to discuss any additional testing and/or consults that will be scheduled. Pt will then receive a call from our scheduling office for scheduling. Please call pt at [phone]. Patient was informed consultation could be at [facility] or [facility]: No Patient Registration: Registration complete/updated: yes Insurance card(s) scanned in [facility] with in the past year: Yes: Date: 10/16/23 Pt's [employer] is inactive. Ok to communicate to pt via [employer] not asked Medical Records: Records in [facility] (internal CC records): No Imaging in [facility] (internal CC records): No Care Everywhere - queried yes, downloaded Yes Linked Outside Organizations (list): [facility] Records Requested: no Date: N/A Outside Hospital(s) requested records from: Dr. Clemente Received: yes Uploaded: Yes. Waiting on additional records: No. Missing (list): N/A OSH Pathology Slides Requested: no Date: N/A Outside Hospital(s) slides requested from: n/a OS Radiology Imaging Requested: yes Date: October 16, 2023 Outside Hospital(s) requested imaging from: [facility]. Imaging will be received via Electronic Transfer Received: Yes Imaging uploaded: Yes Waiting on additional: No Missing (list): n/a Additional providers added to Care Teams: Yes Additional Notes/Comments: Pt's spouse states pt is waiting to be scheduled for another CT Chest locally. Enct routed to: Margaret Vasquez NPM for Triage Jahaira Wood, windows server administrator [facility]04-30-[facility] Telephone encounter Note* Telephone Encounter - Sol Desouza - 10/15/2023 4:06 PM EDTSummary: CARDIO THORACIC SURG Patient: Sav Raymundo Date of : 1950 Patient phone number: [phone] Referring Provider for the encounter: Sintia Clemente Requesting Provider: Dr Ronaldo Flood Reason for requesting visit (RFV/signs and symptoms/diagnosis): pleural effusion recurment . Person calling: Via RP FAX Return call to: self Medical Records/Insurance Card scanned into Epic: Comments: [facility]04-30-[facility] Miscellaneous Notes* Telephone Encounter - Sol Desouza - 10/15/2023 4:06 PM EDTSummary: CARDIO THORACIC SURG Patient: Sav Raymundo Date of : 1950 Patient phone number: [phone] Referring Provider for the encounter: Sintia Clemente Requesting Provider: Dr Ronaldo Flood Reason for requesting visit (RFV/signs and symptoms/diagnosis): pleural effusion recurment . Person calling: Via RP FAX Return call to: self Medical Records/Insurance Card scanned into [employer]: Comments: documented in this encounterOhiohealth Southeastern Medical Center02-06-2024 Evaluation note* Encounter Date Diagnosis Assessment Notes Treatment Notes Treatment Clinical Notes Jul, Subacute cough (ICD-10 - R05.2) Continue treatment of any PND and GERD. Continue Mucinex DM. Trial of Prednisone and Albuterol. Jul,rimary hypertension (ICD-10 - I10)This patient is instructed to consume a healthy, low-fat, low-salt diet. They are also encouraged to continue exercise to achieve/maintain a normal BMI. [employer] Other 01-24-2024 Evaluation note* Encounter Date Diagnosis Assessment Notes Treatment Notes Treatment Clinical Notes Jun, Subacute cough (ICD-10 - R05.2) [employer] Other 01-21-2024 Evaluation note* Encounter Date Diagnosis Assessment Notes Treatment Notes Treatment Clinical Notes Jun, Subacute cough (ICD-10 - R05.2) [employer] Other 01-09-2024 Evaluation note* Encounter Date Diagnosis Assessment Notes Treatment Notes Treatment Clinical Notes Jun, Primary hypertension (ICD-10 - I 10) [employer] Other 11-21-2023 Evaluation note* Encounter Date Diagnosis Assessment Notes Treatment Notes Treatment Clinical Notes Apr, Acute bronchitis due to other sp ecified organisms (ICD-10 - J20.8) [employer] Other 11-08-2023 Evaluation note* Encounter Date Diagnosis Assessment Notes Treatment Notes Treatment Clinical Notes Apr, Primary hypertension (ICD-10 - I 10) [employer] Other 11-06-2023 Evaluation note* Encounter Date Diagnosis [...] < 135/85 _update office in couple days Apr,Other obesity due to excess calories (ICD-10 - E66.09)This patient has been instructed on a low-fat, high-fiber diet. They are instructed to reduce calories, portion sizes and snacks. It is recommended that they exercise for 30 minutes, 3-5 times weekly. Apr,ody mass index [BMI] 30.0-30.9, adult (ICD-10 - Z68.30) Apr,Screening PSA (prostate specific antigen) (ICD-10 - Z12.5)Yealry PSA [employer] Other 11-01-2023 Evaluation note* Encounter Date Diagnosis Assessment Notes Treatment Notes Treatment Clinical Notes Apr, Screening PSA (prostate specific antigen) (ICD-10 - Z12.5) Apr,Hyperlipidemia type II (ICD-10 - E78.01) Apr,astro-esophageal reflux disease with esophagitis, without bleeding (ICD-10 - K21.00) Apr,Fatigue, unspecified type (ICD-10 - R53.83) Apr,High risk medication use (ICD-10 - Z79.899) [employer] Other 08-28-2023 History of Present illness Narrative* Margie Edouard, - 02/11/2023 2:00 PM EDT Telehealth Visit Via Phone Call Patient: Sav Raymundo Date of : 1950 (72 y.o. male) Patient Patient Location: [address] [place] [address] [place] [address] Provider Location: [facility] I discussed risks, benefits and [...] there are inherent diagnostic limitations compared to shle-ce-ages evaluations. We elected toproceed with the telephone [...] expedite correspondence this note was generated by [employer] voice recognition software. Somegrammatical or spelling errors may occur using the system. documented in this [id number] History of Present illness Narrative* Nena Huff, DO - 01/16/2023 10:[address] [facility] [address] [place] [id number] Patient Name: Sav Raymundo Patient Age: 72 [...] KNEE ARTHROPLASTY; Surgeon: Karthik Calloway MD; Location: [facility] OR; Service: ARTHROPLASTY KNEE TOTAL Right 06/25/2016 Procedure: RIGHT TOTAL KNEE ARTHROPLASTY ; Surgeon: Karthik Calloway MD; Location: [facility] OR; Service: BASAL CELL CARCINOMA EXCISION [...] mouth every morning . vit A-vit C-vit [id number] Tab Take 1 tablet by mouth every [...] Imaging: X-rays of the left knee from [facility] taken today are reviewed. My personal [...] expedite correspondence this note was generated by [employer] voice recognition software. Somegrammatical or spelling errors may occur using the system. documented in this [id number] Evaluation note* Encounter Date Diagnosis Assessment Notes Treatment Notes Treatment Clinical Notes Dec, Laceration of scalp, initial enc ounter (ICD-10 - S01.01XA) Cleanse scalp w/ soap and water [employer] Other 06-05-2023 History of Present illness Narrative* [...] the left great toe does not apparently customer service sales associate the ground. IMAGING: Please see dictated report. ASSESSMENT: Left hallux rigidus Left metatarsalgia PLAN: I performed a left first MTP joint injection at today's visit. Please see separate procedure note. I recommended that we proceed with custom orthotics with a Eaton's extension, built-in metatarsal pad. Order was [facility] to [facility] orthopedics. We [facility] first M[facility] We discussed the fact that he would have to be nonweightbearing following the procedure. Thepatient would like to hold off on any surgery at today's visit. We will see him back in 6 weeks. Radiographs next visit: None Margie Edouard DO Orthopedic Foot and Ankle Surgeon To expedite correspondence, this note was generated by [employer] voice recognition software. Some grammatical or spelling errors may occur using this system. documented in this [id number] History of Present illness Narrative* Grecia Faith [...] expedite correspondence, this note was generated by [employer] voice recognition software. Some grammatical or spelling errors may occur using this system. documented in this [id number] History of Present illness Narrative* Margie Edouard, - 08/28/2022 1:46 PM EDT 08/28/22 Sav [...] the left great toe does not apparently customer service sales associate the ground. IMAGING: Please see dictated report. [...] expedite correspondence, this note was generated by [employer] voice recognition software. Some grammatical or spelling errors may occur using this system. [facility]* Diagnosis Status post total knee replacement, bilateral- Primary documented in this encounter [facility] note* Diagnosis Hallux rigidus of left foot- Primary Eaton's metatarsalgia, left documented in this encounter [facility] note* Diagnosis Hallux rigidus of left foot- Primary Metatarsalgia, left foot documented in this encounter [facility] note* Diagnosis Hallux rigidus of left foot- Primary documented in this encounter [facility] note* Diagnosis Status post total knee replacement, bilateral- Primary documented in this encounter [facility] note* Diagnosis Hallux rigidus of left foot- Primary [facility] this [facility] [place] noteNo [facility] Other Evaluation note* Diagnosis Status post total knee replacement, bilateral- Primary documented in this encounter [facility] note* Diagnosis Onset Date Resolution Status Nausea & vomiting acutePrimary hypertensionacuteSubacute coughacuteDyspnea on effortnoneactive [place] [facility] Work Phone: Evaluation note* Diagnosis Pleural effusion- Primary Unspecified pleural effusion documented in this encounter [facility] note* Diagnosis Obesity, Class I, BMI 30-34.9- Primary Obesity, unspecified Pleural effusion Unspecified pleural effusion documented in this encounter [facility] note* Diagnosis Pleural effusion- Primary Unspecified pleural effusion Encounter for other preprocedural examination Pleural effusion Unspecified pleural effusion Encounter for other preprocedural examination documented in this encounter [facility] note* Diagnosis Pleural effusion- Primary Unspecified pleural effusion Pleural effusion Unspecified pleural effusion Encounter for other preprocedural examination documented in this encounter [facility] note* Diagnosis Pleural effusion Unspecified pleural effusion Encounter for other preprocedural examination Pleural effusion Unspecified pleural effusion Encounter for other preprocedural examination documented in this encounter [facility] note* Diagnosis Surgery follow-up- Primary Follow-up examination, following unspecified surgery documented in this encounter [facility] note* Diagnosis Follow-up exam- Primary Unspecified follow-up examination documented in this encounter [facility] note* Diagnosis Surgery follow-up Follow-up examination, following unspecified surgery documented in this encounter [facility] note* Diagnosis Follow-up exam Unspecified follow-up examination documented in this encounter [facility] note* Diagnosis Pleural effusion Unspecified pleural effusion documented in this encounter [facility] note* Diagnosis Pleural effusion Unspecified pleural effusion documented in this encounter [facility] note* Diagnosis Follow-up examination after lung surgery- Primary Follow-up examination, following other surgery Pleural effusion Unspecified pleural effusion documented in this encounter [facility] note* Diagnosis Follow-up examination after lung surgery- Primary Follow-up examination, following other surgery Pleural effusion Unspecified pleural effusion Pleural effusion Unspecified pleural effusion documented in this encounter [facility] note* Diagnosis Pleural effusion- Primary Unspecified pleural effusion documented in this encounter [facility] note* Diagnosis Chronic cough- Primary Cough Pleural effusion Unspecified pleural effusion documented in this encounter [facility] note* Diagnosis Recurrent pleural effusion- Primary History of pericarditis Personal history of other diseases of circulatory system Chronic cough Cough documented in this encounter [facility] note* Diagnosis Recurrent 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 Unspecified pleural effusion documented in this encounter [facility] note* Diagnosis Recurrent 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- Primary Unspecified pleural effusion Chronic cough Cough Elevated C-reactive protein (CRP) Elevated sedimentation rate documented in this encounter [facility] note* Diagnosis Pleural effusion- Primary Unspecified pleural effusion Pleural effusion Unspecified pleural effusion documented in this encounter [facility] note* Diagnosis Follow-up examination after lung surgery- Primary Follow-up examination, following other surgery Pleural effusion Unspecified pleural effusion Bilateral lower extremity edema Edema Anasarca Edema Nausea vomiting and diarrhea Diarrhea documented in this encounter [facility] note* Diagnosis Pleural effusion- Primary Unspecified pleural effusion Elevated sed rate Elevated sedimentation rate Elevated C-reactive protein (CRP) documented in this encounter [facility] note* Diagnosis Recurrent 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- Primary Unspecified pleural effusion Primary hypertension Unspecified essential hypertension Pleural effusion Unspecified pleural effusion Chronic cough Cough Anemia, unspecified type Hypomagnesemia Disorders of magnesium metabolism documented in this encounter [facility] note* Diagnosis Recurrent 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- Primary Unspecified pleural effusion History of pericarditis Personal history of other diseases of circulatory system documented in this encounter [facility] note* Diagnosis Pleural effusion Unspecified pleural effusion documented in this encounter [facility] note* Diagnosis Chronic cough Cough Pleural effusion Unspecified pleural effusion documented in this encounter [facility] note* Diagnosis Pleural effusion- Primary Unspecified pleural effusion documented in this encounter [facility] note* Diagnosis Chronic cough- Primary Cough Pleural effusion Unspecified pleural effusion Interstitial pulmonary disease (HCC) Postinflammatory pulmonary fibrosis documented in this encounter [facility] note* Diagnosis Pleural effusion- Primary Unspecified pleural effusion Interstitial pulmonary disease (HCC) Postinflammatory pulmonary fibrosis documented in this encounter [facility] note* Diagnosis Chronic cough- Primary Cough Pleural [...] fibrosis documented in this encounter [facility] note* Diagnosis Chronic bronchitis, unspecified chronic bronchitis type (HCC) documented in this encounter [facility] note* Diagnosis Interstitial pulmonary disease (HCC) Postinflammatory pulmonary fibrosis documented in this encounter [facility] note* Diagnosis Pericarditis, unspecified chronicity, unspecified type documented in this encounter [facility] note* Diagnosis Pleural effusion- Primary Unspecified pleural effusion Elevated sed rate Elevated sedimentation rate Elevated C-reactive protein (CRP) Diarrhea, unspecified type [facility] [place] [facility]* Diagnosis Diarrhea, unspecified type Abdominal pain, unspecified abdominal location documented in this encounter [facility] note* Diagnosis Abdominal pain, unspecified abdominal location- Primary Diarrhea, unspecified type Diarrhea, unspecified type Abdominal pain, unspecified abdominal location documented in this encounter [facility] note* Diagnosis Nausea and vomiting, unspecified vomiting type documented in this encounter [facility] note* Diagnosis Recurrent 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- Primary Unspecified pleural effusion Anasarca Edema Chronic cough Cough Primary hypertension Unspecified essential hypertension [facility] [place] [facility]* Diagnosis Pleural effusion Unspecified pleural effusion documented in this encounter [facility] note* Diagnosis Pleural effusion- Primary Unspecified pleural effusion Chronic cough Cough Lung nodule Solitary pulmonary nodule Lymphocytic colitis Other and unspecified noninfectious gastroenteritis and colitis Pleural effusion Unspecified pleural effusion documented in this encounter [facility] note* Diagnosis Pleural effusion- Primary Unspecified pleural effusion Elevated sed rate Elevated sedimentation rate Elevated C-reactive protein (CRP) documented in this encounter [facility] note* Diagnosis Lymphocytic colitis- Primary Other and unspecified noninfectious gastroenteritis and colitis [facility] [place] [facility]* Diagnosis Recurrent 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- Primary Unspecified pleural effusion Primary hypertension Unspecified essential hypertension Lymphocytic colitis Other and unspecified noninfectious gastroenteritis and colitis Elevated C-reactive protein (CRP) Exocrine pancreatic insufficiency Other specified disease of pancreas Hypokalemia Hypopotassemia Anasarca Edema documented in this encounter [facility] note* Diagnosis Pleural effusion- Primary Unspecified pleural effusion [facility] [place] [facility]* Diagnosis Pleural effusion- Primary Unspecified pleural effusion Pleuritis Pleurisy without mention of effusion or current tuberculosis Lymphocytic colitis Other and unspecified noninfectious gastroenteritis and colitis Pericardial effusion (noninflammatory) Interstitial pulmonary disease (HCC) Postinflammatory pulmonary fibrosis documented in this encounter [facility] note* Diagnosis Pleural effusion [J90]- Primary Unspecified pleural effusion documented in this encounter [facility] note* Diagnosis Pleural effusion Unspecified pleural effusion [facility] [place] [facility]* Diagnosis Pleural effusion- Primary Unspecified pleural effusion Muscle cramps Cramp of limb Anasarca Edema Hypomagnesemia Disorders of magnesium metabolism Lymphocytic colitis Other and unspecified noninfectious gastroenteritis and colitis documented [facility] [place] [facility]* Diagnosis Fatigue, unspecified type- Primary documented in this encounter [facility] note* Diagnosis Pleural effusion- Primary Unspecified pleural effusion documented in this encounter [facility] note* Diagnosis Pleural effusion- Primary Unspecified pleural effusion Pleuritis Pleurisy without mention of effusion or current tuberculosis Pericardial effusion (noninflammatory) Chronic cough Cough documented in this encounter [facility] note* Diagnosis Pleural effusion- Primary Unspecified pleural effusion documented in this encounter [facility] note* Diagnosis Pleural effusion Unspecified pleural effusion documented in this encounter [facility] note* Diagnosis Early dry stage nonexudative age-related macular degeneration of both eyes- Primary Dry eyes Unspecified tear film insufficiency Blepharitis of upper and lower eyelids of both eyes, unspecified type Bilateral posterior capsular opacification Unspecified after-cataract Chalazion of left upper eyelid documented in this encounter [facility] note* Diagnosis Pleural effusion- Primary Unspecified pleural effusion documented in this encounter [facility] note* Diagnosis Recurrent 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- Primary Unspecified pleural effusion documented in this encounter [facility] note* Diagnosis Lymphocytic colitis- Primary Other and unspecified noninfectious gastroenteritis and colitis Esophageal dysphagia Dysphagia, pharyngoesophageal phase documented in this encounter [facility] note* Diagnosis Seborrheic keratosis- Primary Actinic keratosis Stasis dermatitis of both legs Lentigines documented in this encounter [facility] note* Diagnosis Recurrent 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- Primary Unspecified pleural effusion documented [facility] [place] [facility]* Diagnosis Recurrent 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- Primary Unspecified pleural effusion documented [facility] [place] [facility]* Diagnosis Recurrent 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- Primary Unspecified pleural effusion Hypokalemia Hypopotassemia Lymphocytic colitis Other and unspecified noninfectious gastroenteritis and colitis Anemia, unspecified type Chronic insomnia Insomnia, unspecified Bronchiolar disease Other diseases of trachea and bronchus documented in this encounter [facility] [place] [facility]* Diagnosis Esophageal dysphagia- Primary Dysphagia, pharyngoesophageal phase Bronchiolar disease Other diseases of trachea and bronchus documented in this encounter [facility] [place] [facility]* Diagnosis Cough, unspecified type documented in this encounter [facility] [place] [facility]* Diagnosis Elevated BUN- Primary Other abnormal blood chemistry Elevated serum creatinine Other nonspecific findings on examination of blood Decreased GFR Nonspecific abnormal results of kidney function study Elevated alkaline phosphatase level Other nonspecific abnormal serum enzyme levels documented [facility] this [facility] [place] [facility]* Diagnosis FLOYD (acute kidney injury)- Primary Acute kidney failure, unspecified Elevated BUN Other abnormal blood chemistry Elevated serum creatinine Other nonspecific findings on examination of blood Decreased GFR Nonspecific abnormal results of kidney function study Lymphocytic colitis Other and unspecified noninfectious gastroenteritis and colitis Pleural effusion, not elsewhere classified Generalized edema Edema documented [facility] this encounter [facility] [place] [facility]* Diagnosis Screening for genitourinary condition Screening for other and unspecified genitourinary condition [facility] [place] [facility]* Diagnosis Cramp and spasm documented [facility] this [facility] [place] [facility]* Diagnosis Serositis (HCC)- Primary Other specified disorder of intestines documented [facility] [place] [facility]* Diagnosis Generalized abdominal pain- Primary Abdominal pain, generalized Other ascites documented [facility] this encounter [facility] [place] [facility]* Diagnosis Elevated alkaline phosphatase level Other nonspecific abnormal serum enzyme levels [facility] [place] [facility]* Diagnosis Pleural effusion- Primary Unspecified pleural effusion [facility] [place] [facility]* Diagnosis Pleural effusion Unspecified pleural effusion Encounter for other preprocedural examination documented [facility] [place] [facility]* Diagnosis Anasarca- Primary Edema Recurrent 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 Unspecified pleural effusion Hepatomegaly Hiatal hernia Diaphragmatic hernia without mention of obstruction or gangrene Chronic gastritis without bleeding, unspecified gastritis type Hypomagnesemia Disorders of magnesium metabolism [facility] [place] [facility]* Diagnosis Pleural effusion Unspecified pleural effusion documented [facility] [place] [facility]* Diagnosis Extremity cyanosis- Primary Other peripheral vascular disease [facility] [place] [facility]* Diagnosis Pleural effusion- Primary Unspecified pleural effusion [facility] [place] [facility]* Diagnosis Pleural effusion- Primary Unspecified pleural effusion Pleuritis Pleurisy without mention of effusion or current tuberculosis Pericardial effusion (noninflammatory) (HCC) Lymphocytic colitis Other and unspecified noninfectious gastroenteritis and colitis Other ascites documented [facility] this [facility] [place] [facility]* Diagnosis Pleural effusion, not elsewhere classified [facility] Diagnosis Hepatomegaly [facility] Diagnosis Cramp and spasm documented [facility] [place] [facility]* Diagnosis Mixed connective tissue disease (HCC)- Primary Other specified diffuse disease of connective tissue Urge incontinence Hypokalemia Hypopotassemia Recurrent 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 Unspecified pleural effusion Muscle cramps Cramp of limb Hiatal hernia Diaphragmatic hernia without mention of obstruction or gangrene documented [facility] this [facility] [place] [facility]* Diagnosis Elevated serum creatinine- Primary Other nonspecific findings on examination of blood Elevated alkaline phosphatase level Other nonspecific abnormal serum enzyme levels [facility] [place] [facility]* Diagnosis Pleural effusion, not elsewhere classified Elevated alkaline phosphatase level Other nonspecific abnormal serum enzyme levels [facility] [place] [facility]* Diagnosis Cramp and spasm Elevated alkaline phosphatase level Other nonspecific abnormal serum enzyme levels [facility] [place] [facility]* Diagnosis Pleural effusion- Primary Unspecified pleural effusion Pleuritis Pleurisy without mention of effusion or current tuberculosis Pericardial effusion (noninflammatory) (HCC) History of pericarditis Personal history of other diseases of circulatory system Lymphocytic colitis Other and unspecified noninfectious gastroenteritis and colitis Elevated alkaline phosphatase level Other nonspecific abnormal serum enzyme levels [facility] [place] [facility] Diagnosis Hypomagnesemia- Primary Disorders of magnesium metabolism Dyslipidemia Other and unspecified hyperlipidemia Anemia, unspecified type documented in this encounter [facility] [place] [facility]* Diagnosis Other ascites- Primary [facility] [place] [facility] Diagnosis Other ascites documented in this encounter [facility] [place] [facility]* Diagnosis FLOYD (acute kidney injury)- Primary Acute kidney failure, unspecified Screening for genitourinary condition Screening for other and unspecified genitourinary condition Elevated serum creatinine Other nonspecific findings on examination of blood Decreased GFR Nonspecific abnormal results of kidney function study Generalized edema Edema Pleural effusion, not elsewhere classified documented in this encounter [facility] [place] [facility]* Diagnosis FLOYD (acute kidney injury)- Primary [...] unspecified genitourinary condition [facility] Diagnosis 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, stage 2 (CMS-HCC)- Primary Cellulitis of left foot Pain in toe of left foot Pain in soft tissues of limb Difficulty walking Difficulty in walking documented in this encounter [facility]* Diagnosis 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, stage 2 (CMS-HCC)- Primary Cellulitis of left foot Pain in toe of left foot Pain in soft tissues of limb Difficulty walking Difficulty in walking documented in this encounter [facility]* Diagnosis 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, stage 2 (CMS-HCC)- Primary Cellulitis of left foot Pain in toe of left foot Pain in soft tissues of limb Difficulty walking Difficulty in walking documented in this encounter [facility]* Diagnosis Dermatophytosis of nail- Primary Dystrophic nail Other specified disease of nail Pain around toenail, right foot Pain around toenail, left foot documented in this encounter [facility] HealthcareHistory general Narrative - Reported* Type Description Date Medical History 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 Medical HistoryBenign prostatic hyperplasia with lower urinary tract symptoms Medical HistoryHyperlipidemia type IIMedical HistoryGastro-esophageal reflux disease with esophagitis, without bleedingSurgical Historyboth knee replaced Surgical Historyhand surgeryHospitalization HistorySEE ABOVE [employer] Other Reason for referral (narrative)* Outpatient Procedure (Routine) - AuthorizedSpecialtyDiagnoses / ProceduresReferred By Contact [facility] Diagnoses Pleural effusion Encounter for other preprocedural examination Procedures SIX MINUTE WALK CARDIOPULMONARY EXERCISE STRESS Ronaldo Flood MD, PhD [address] [facility] [address] [place] [address] [facility] [place] [address] Referral IDStatusReasonStart DateExpiration DateVisits RequestedVisits [id number] Auto-Generated Referral / * Outpatient Procedure (Routine) - AuthorizedSpecialtyDiagnoses / Procedures Referred By ContactReferred To [facility] [place] Diagnoses Pleural effusion Encounter for other preprocedural examination Procedures ECG COMPLETE ECG ROUTINE ECG W/LEAST 12 LDS W/I&R Ronaldo Flood MD, PhD [address] [address] Heart [facility] [address] [address] Referral IDStatusReasonStart DateExpiration DateVisits RequestedVisits [id number] Auto-Generated Referral / * Diagnostic Procedure Only (Routine) - AuthorizedSpecialtyDiagnoses / ProceduresReferred By ContactReferred To [facility] Diagnoses Pleural effusion Encounter for other preprocedural examination Procedures NM CARDIAC PERF STRESS/EXERCISE MYOCARDIAL SPECT MULTIPLE STUDIES Ronaldo Flood MD, PhD [address] [address] Molecular & Functional Imaging [address] [place] [address] Referral IDStatusSairamissouri southern healthcareStpond creek DateExpiration DateVisits RequestedVisits [id number] Auto-Generated Referral / * Outpatient Procedure (Routine) - AuthorizedSpecialtyDiagnoses / Procedures Referred By ContactReferred To [facility] Diagnoses Pleural effusion Encounter for other preprocedural examination Procedures LUNG DIFFUSION CAPACITY (DLCO) DIFFUSING CAPACITY Ronaldo Flood MD, PhD [address] [address] Respiratory [facility] [address] [place] [address] Referral IDStatAlejaStkeke DateExpiration DateVisits RequestedVisits [id number] Auto-Generated Referral / * Outpatient Procedure (Routine) - AuthorizedSpecialtyDiagnoses / Procedures Referred By ContactReferred To [facility] Diagnoses Pleural effusion Encounter for other preprocedural examination Procedures SPIROMETRY WITH DILATOR IF OBSTRUCTED BRNCDILAT RSPSE SPMTRY PRE&POST-BRNCDILAT Ronaldo Delgado MD, PhD [address] [facility] [address] [place] [address] [place] [address] Referral IDStatusReasonStart DateExpiration DateVisits RequestedVisits [id number] Auto-Generated Referral [facility] for referral (narrative)* Outpatient Procedure (Routine) - New RequestSpecialtyDiagnoses / ProceduresReferred By ContactReferred To [facility] Diagnoses Chronic cough Pleural effusion Procedures SPIROMETRY WITH DILATOR IF OBSTRUCTED BRNCDILAT RSPSE SPMTRY PRE&POST-BRNCDILAT Katerina Myrick APRN.CNP [id number] [place] [address] Referral IDStatusReasonStart DateExpiration DateVisits RequestedVisits [id number] Request Auto-Generated Referral / * Outpatient Procedure (Routine) - New RequestSpecialtyDiagnoses / Procedures Referred By ContactReferred To [facility] Diagnoses Chronic cough Pleural effusion Procedures NITRIC OXIDE, EXHALED NITRIC OXIDE GAS DETERMINATION Katerina Bravo APRN.CNP [address] [id number] [place] [address] Referral IDStatusReasonStart DateExpiration DateVisits RequestedVisits [id number] Request Auto-Generated Referral / [facility] for referral (narrative)* Outpatient Procedure (Routine) - ClosedSpecialtyDiagnoses / ProceduresReferred By ContactReferred To [facility] [place] Diagnoses Pleural effusion Interstitial pulmonary disease (HCC) Procedures LUNG VOLUMES Louise Cesar MD [address] [place] [address] [place] [address] Referral IDStatusReasonStart DateExpiration DateVisits RequestedVisits [id number] Auto-Generated Referral * Outpatient Procedure (Routine) - ClosedSpecialtyDiagnoses / ProceduresReferred By ContactReferred To [facility] [place] Diagnoses Chronic cough Pleural effusion Interstitial pulmonary disease (HCC) Procedures LUNG DIFFUSION CAPACITY (DLCO) DIFFUSING CAPACITY Louise Cesar MD [address] [place] [address] [place] [address] Referral IDStatusSairaasonStpond creek DateExpiration DateVisits RequestedVisits [id number] Auto-Generated Referral * Outpatient Procedure (Routine) - AuthorizedSpecialtyDiagnoses / Procedures Referred By ContactReferred To [facility] Diagnoses Pericarditis, unspecified chronicity, unspecified type Procedures ECHO ECHO TTHRC R-T 2D W/WOM-MODE COMPL SPEC&COLR Louise Joseph MD [address] [place] [address] [facility] [place] [address] Referral IDStatusReasonStart DateExpiration DateVisits RequestedVisits [id number] Auto-Generated Referral * MRI/CT (Routine) - ClosedSpecialtyDiagnoses / ProceduresReferred By Contact Referred To ContactCT IMAGING Diagnoses Interstitial pulmonary disease (HCC) Procedures CT CHEST W IVCON DIAGNOSTIC COMPUTED TOMOGRAPHY THORAX W/CONTRAST Louise Cesar MD [address] [place] [address] Ct Imaging [place] [address] Referral IDStatusReasonStart DateExpiration DateVisits RequestedVisits [id number] Auto-Generated Referral [facility] for referral (narrative)* Outpatient Procedure (Routine) - ClosedSpecialtyDiagnoses / ProceduresReferred By ContactReferred To Contact [facility] [place] Diagnoses Pericarditis, unspecified chronicity, unspecified type Procedures ECHO ECHO TTHRC R-T 2D W/WOM-MODE COMPL SPEC&COLLouise Nation MD [address] [place] [address] [place] [address] Referral IDStatusReasonStart DateExpiration DateVisits RequestedVisits [id number] Auto-Generated Referral [facility] for referral (narrative)No reason for referral information availableSelect Medical [facility] Work Phone: [facility] for visit Narrative* Outpatient Procedure (Routine) - ClosedSpecialtyDiagnoses / ProceduresReferred By ContactReferred To ContactMARIETTA [facility] Diagnoses Pericarditis, unspecified chronicity, unspecified type Procedures ECHO ECHO TTHRC R-T 2D W/WOM-MODE COMPL SPEC&COLR D Louise Cesar MD [address] [place] [address] Heart And Vascular [facility] [address] [place] [address] Referral IDStatusReasonStart DateExpiration DateVisits RequestedVisits [id number] Auto-Generated Referral [facility] for visit Narrative* Outpatient Procedure (Routine) - ClosedSpecialtyDiagnoses / ProceduresReferred By ContactReferred To Contact [facility] Diagnoses Diarrhea, unspecified type Procedures COLONOSCOPY DIAGNOSTIC COLONOSCOPY FLX DX W/COLLJ SPEC WHEN PFRMD Sue Terrell MD [address] [place] [address] [facility] [place] [address] Ref[facility]Status[facility] DateExpiration DateVisits RequestedVisits [id number] Auto-Generated Referral [facility] for visit Narrative* Diagnostic Procedure Only (Routine) - ClosedSpecialtyDiagnoses / ProceduresReferred By ContactReferred To Contact XR IMAGING Diagnoses Pleural effusion Procedures XR CHEST 1V DECUBITUS RIGHT RADIOLOGIC EXAM CHEST SINGLE VIEW Triston Riggs MD [address] [place] [address] Phone: tel: fax: XR IMAGING [place] [address] Referral IDStatusReasonStart DateExpiration DateVisits RequestedVisits [id number] Auto-Generated Referral [facility] for visit Narrative* Outpatient Procedure (Routine) - ClosedSpecialtyDiagnoses / ProceduresReferred By ContactReferred To Contact [facility] Diagnoses Esophageal dysphagia Procedures EGD DIAGNOSTIC ESOPHAGOGASTRODUODENOSCOPY TRANSORAL DIAGNOSTIC Sue Terrell MD [address] [place] [address] Phone: tel: fax: [facility] [address] [place] [address] Referral IDStatus[facility] DateExpiration DateVisits RequestedVisits [id number] Auto-Generated Referral / [facility] for visit Narrative* Diagnostic Procedure Only (Routine) - ClosedSpecialtyDiagnoses / ProceduresReferred By ContactReferred To Contact US IMAGING Diagnoses Elevated alkaline phosphatase level Procedures US ABD RIGHT UPPER QUADRANT US ABDOMINAL REAL TIME W/IMAGE LIMITED Xiomara Ly APRN.TRUCK BODY BUILDER [address] [place] [address] Phone: tel: fax: US IMAGING [place] [address] Referral IDStatusReasonStpond creek DateExpiration DateVisits RequestedVisits [id number] Auto-Generated Referral [facility] for visit Narrative* Diagnostic Procedure Only (Routine) - ClosedSpecialtyDiagnoses / ProceduresReferred By ContactReferred To Contact US IMAGING Diagnoses Hepatomegaly Procedures US ELASTOGRAPHY LIVER ULTRASOUND ELASTOGRAPHY [place] [address] [facility] [place] [address] Phone: tel: fax: US IMAGING [place] [address] Referral IDStatusReasonStpond creek DateExpiration DateVisits RequestedVisits [id number] Auto-Generated Referral / [facility] for visit Narrative* Diagnostic Procedure Only (Routine) - ClosedSpecialtyDiagnoses / ProceduresReferred By ContactReferred To Contact US IMAGING Diagnoses Other ascites Procedures US DOPPLER COMPLETE DUP-SCAN ARTL KRYSTAL ABDL/PEL/SCROT&/RPR ORGN COM Marlyn Hooper APRN.TRUCK BODY BUILDER [address] [place] [address] Phone: tel: fax: US IMAGING [facility]95 Referral IDStatusReasonStart DateExpiration DateVisits RequestedVisits [id number] Auto-Generated Referral [facility] Assessments DiagnosisPrimary osteoarthritis of right [...] may be different from the original. [facility] [address] [place] [address] Patient Name: Sav Raymundo Patient Age: 66 [...] may be different from the original. [facility] [address] [place] [address] [address] [address] Patient Name: Sav Raymundo Patient Age: 66 [...] DO - 07/01/2019 10:[address] [facility] [address] [place] [address] Patient Name: Sav Raymundo Patient Age: 69 y.o. Patient : 1950 Date: 07/01/19 Progress Note HPI: Sav Raymundo is a 69 y.o. male who is status post bilateral total knee arthroplasty both performed by Dr Calloway. Left side done in 2014 and right side done in 2017. Patient is doing well and [...] KNEE ARTHROPLASTY; Surgeon: Karthik Calloway MD; Location: [facility]; Service: ARTHROPLASTY KNEE TOTAL Right 06/25/2016 Procedure: RIGHT TOTAL KNEE ARTHROPLASTY ; Surgeon: Karthik Calloway MD; Location: [facility] OR; Service: BASAL CELL CARCINOMA EXCISION [...] file Gets together: Not on file Attends [employer] service: Not on file Active member of [...] mouth every morning . vit A-vit C-vit P-ojbv-zhcnae (EYE VITAMIN AND MINERALS) 7,160-113-100 jtfy-lq-pkfb Tab Take 1 tablet by mouth every [...] with no interval change from most recentimaging. [place] view shows the patella tracks well without [...] expedite correspondence this note was generated by [employer] voice recognition software. Somegrammatical or spelling errors may occur using the system. documented in this encounter* Nena Huff DO - 07/20/2020 2:[address] [facility] [address] [place] [address] Patient Name: Sav Raymundo Patient Age: 70 [...] KNEE ARTHROPLASTY; Surgeon: Karthik Calloway MD; Location: [facility] OR; Service: ARTHROPLASTY KNEE TOTAL Right 06/25/2016 Procedure: RIGHT TOTAL KNEE ARTHROPLASTY ; Surgeon: Karthik Calloway MD; Location: [facility] OR; Service: BASAL CELL CARCINOMA EXCISION [...] file Gets together: Not on file Attends [employer] service: Not on file Active member of [...] mg by mouth daily. vit A-vit C-vit D-nfwr-yjacnx (EYE VITAMIN AND MINERALS) 7,160-113-100 sxmx-xv-tmeh Tab Take 1 tablet by mouth every [...] with no interval change from most recentimaging. [place] view shows the patella tracks well in [...] expedite correspondence this note was generated by [employer] voice recognition software. Somegrammatical or spelling errors [...] good - per Dr Ball Amb Documentation UnknownReason for VisitNausea & vomiting Primary hypertension Subacute cough Dyspnea on effort Murmur Chief Complaint not doing good - per Dr Ball Amb Documentation Unknown UnknownReason for VisitNausea & vomiting Primary hypertension Subacute cough Dyspnea on effort Murmur Chief Complaint not doing good - per Dr Ball Amb Documentation Unknown Unknown UnknownReason for VisitNausea [...] Viral respiratory illness July 14, 2024 4:27pm Chief Complaint Admit Date Amb Documentation April [...] :31am Primary hypertension April 09, 2025 9:31am Reason for Referral SpecialtyDiagnoses / ProceduresReferred By ContactReferred To ContactCT IMAGING Diagnoses Pleural effusion Lung nodule Procedures CT CHEST WO IVCON DIAGNOSTIC COMPUTED TOMOGRAPHY THORAX W/O Louise Boggs MD [address] [place] [address] Ct Imaging [place] [address] Referral IDStatusReasonStart DateExpiration DateVisits RequestedVisits [id number] Request Auto-Generated Referral /[id number] / ProceduresReferred By ContactReferred To ContactCT IMAGING Diagnoses Diarrhea, unspecified type Abdominal pain, unspecified abdominal location Procedures CT ENTEROGRAPHY W IVCON CT ABD & PELVIS W/CONTRAST Sue Terrell MD [address] [place] [address] Ct Imaging [place] [address] Referral IDStatusReasonStart DateExpiration DateVisits RequestedVisits [id number] Auto-Generated Referral [id number] / ProceduresReferred By ContactReferred To ContactGastroenterology Diagnoses Diarrhea, unspecified type Procedures CONSULT TO [facility]STROENTEROLOGY OFFICE/[facility] 60 MINUTES Steffen Mccarty MD [address] [place] [address] Referral IDStatusReasonStart DateExpiration DateVisits RequestedVisits [id number] PCP Requested Referral [id number] / ProceduresReferred By ContactReferred To ContactRheumatology Diagnoses Pleural effusion Elevated sed rate Elevated C-reactive protein (CRP) Procedures CONSULT TO RHEUM/IMMUN DISEASE OFFICE/[facility]IENT [facility] 60 MINUTES Tita Landry, CARDIOPULMONARY TECHNICIAN.TRUCK BODY BUILDER [address] [place] [address] Referral IDStatusReasonStart DateExpiration DateVisits RequestedVisits [id number] PCP Requested Referral Additional Source Comments Reason for Visit (unrecogniz ed section and content) ReasonCommentsConsultSpecialtyDiagnoses / ProceduresReferred By ContactReferred To ContactNephrology Diagnoses Elevated BUN Elevated serum creatinine Decreased GFR Procedures CONSULT TO NEPHROLOGY CONSULT TO NEPHROLOGY OFFICE/OUTPATIENT [facility] MDM 60 MINUTES Xiomara Ly APRN.TRUCK BODY BUILDER [address] [place] [address] Phone: tel: fax: Referral IDStatusReasonStart DateExpiration DateVisits RequestedVisits [id number] PCP Requested Referral [id number]c Patient Follow-UpSpecialty Diagnoses / ProceduresReferred By ContactReferred To Contact Diagnoses Anasarca Procedures [address] [place] [address] IP/OBS CARE HIGH MDM 75 MINUTES -[address] [place] [address] Referral IDStatusReasonStart DateExpiration DateVisits RequestedVisits [id number]-hwJzsnyuOnosbctvkruaxIpi josenepepe stays swollen but goes to a massage therapist and she gets the swelling to go down/ She 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 lymph drainageFollow-upReasonOnset DateCommentsMedication [id number]Onset DateCommentsMedication Refill 08/28/2022ReasonOnset DateCommentsMedication Jwfofe6008/30/2022ReasonOnset Date CommentsMedication Kdyfbc2002/11/2023ReasonCommentsExternal Referrals/resources ReasonCommentsSchedule SurgeryRight VATS biopsy/ pleurodesis cs=2.5 los =2-3 ReasonCommentsPatient Questionpt notReasonCommentsPre-Op ExamSpecialtyDiagnoses / ProceduresReferred By ContactReferred To ContactADMITTING Diagnoses Bronchiolar disease Procedures THORACENTESIS NEEDLE/CATH PLEURA W/IMAGING THORACENTESIS NEEDLE OR CATHETER ASPIRATION OF THE PLEURAL SPACE W IMAGING GUIDANCE [facility] H[address] [place] [address] Referral IDStatusReasonStart DateExpiration DateVisits RequestedVisits [id number] NMSpecialtyDiagnoses / Procedures Referred By ContactReferred To ContactMOLECULAR & FUNCTIONAL IMAGING Diagnoses Pleural effusion Encounter for other preprocedural examination Procedures NM CARDIAC PERF STRESS/EXERCISE MYOCARDIAL SPECT MULTIPLE STUDIES [place] [address] [place] [address] [address] [place] [address] Molecular & Functional Imaging [address] [place] [address] Ref[facility] DateExpiration DateVisits RequestedVisits [id number] Auto-Generated Referral /[id number] and Confirm AppointmentsReasonComments EffusionReasonCommentsHospital Follow UpReasonCommentsReceived Outside Medical RecordsReasonCommentsEstablished Patient Follow-UpReasonCommentsBreathing ProblemPleural Effusion on the rightMedication Follow-upReasonCommentsPatient UpdatePleurex outputReasonCommentsPost Dc Program Call - Needs AttnReason CommentsPatient UpdateReasonCommentsSpirometrySpecialtyDiagnoses / Procedures Referred By ContactReferred To [facility] Diagnoses Chronic cough Pleural effusion Procedures NITRIC OXIDE, EXHALED NITRIC OXIDE GAS DETERMINATION Katerina Bravo, CARDIOPULMONARY TECHNICIAN.TRUCK BODY BUILDER [address] [place] [address] Respiratory [facility] [address] [place] [address] Referral IDStatusReasonStpond creek DateExpiration DateVisits RequestedVisits [id number] Auto-Generated Referral /[id number] / ProceduresReferred By ContactReferred To [facility] Diagnoses Chronic cough Pleural effusion Procedures SPIROMETRY WITH DILATOR IF OBSTRUCTED BRNCDILAT RSPSE SPMTRY PRE&POST-BRNCDILAT Katerina Myrick, CARDIOPULMONARY TECHNICIAN.TRUCK BODY BUILDER [address] [place] [address] [place] [address] Referral IDStatusReasonStart DateExpiration DateVisits RequestedVisits [id number] Auto-Generated Referral [id number] / ProceduresReferred By ContactReferred To [facility] Diagnoses Chronic cough Pleural effusion Interstitial pulmonary disease (HCC) Procedures LUNG DIFFUSION CAPACITY (DLCO) DIFFUSING CAPACITY Louise Cesar MD [address] [place] [address] [place] [address] Referral IDStatusReasonStp[place] DateExpiration DateVisits RequestedVisits [id number] Auto-Generated Referral [id number] / ProceduresReferred By ContactReferred To [facility] Diagnoses Pleural effusion Interstitial pulmonary disease (HCC) Procedures LUNG VOLUMES Louise Cesar MD [address] [place] [address] [place] [address] Referral IDStatusReasonSt[place] DateExpiration DateVisits RequestedVisits [id number] Auto-Generated Referral [id number]ekDdglcqbbe / ProceduresReferred By ContactReferred To [facility] IM[facility] Diagnoses Interstitial pulmonary disease (HCC) Procedures CT CHEST W IVCON DIAGNOSTIC COMPUTED TOMOGRAPHY THORAX W/CONTRAST Louise Cesar MD [address] [place] [address] Ct Imaging [place] [address] Referral IDStatusReasonStp[place] DateExpiration DateVisits RequestedVisits [id number] Auto-Generated Referral /[id number] pleural effusionSpecialtyDiagnoses / ProceduresReferred By ContactReferred To ContactRheumatology Diagnoses Pleural effusion Elevated sed rate Elevated C-reactive protein (CRP) Procedures CONSULT TO RHEUM/IMMUN DISEASE OFFICE/[facility]IENT [facility] 60 MINUTES Tita Landry APRN.TRUCK BODY BUILDER [address] [place] [address] Referral IDStatusRemissouri southern healthcareStpond creek DateExpiration DateVisits RequestedVisits [id number] PCP Requested Referral [id number] CTSpecialtyDiagnoses / Procedures Referred By ContactReferred To ContactCT IMAGING Diagnoses Diarrhea, unspecified type Abdominal pain, unspecified abdominal location Procedures CT ENTEROGRAPHY W IVCON CT ABD & PELVIS W/CONTRAST Sue Terrell MD [address] [place] [address] Ct Imaging [place] [address] Referral [facility]Status[facility] DateExpiration DateVisits RequestedVisits [id number] Auto-Generated Referral [id number]itbwgseRlbzceukc / Procedures Referred By ContactReferred To ContactGastroenterology Diagnoses Diarrhea, unspecified type Procedures CONSULT TO GASTROENTEROLOGY OFFICE/[facility] 60 MINUTES Steffen Mccarty MD [address] [place] [address] Referral IDStatus[facility] DateExpiration DateVisits RequestedVisits [id number] PCP Requested Referral [id number] ProblemFollow upReasonComments Follow UpReasonCommentsEstablished PatientDiarrhea f/uReasonCommentsEffusion Recurrent pleural on rightReasonCommentsAppointmentReasonOnset DateComments Medication Elywoe2807/08/2024ReasonOnset DateCommentsMedication Uuawjf5507/10/2024 ReasonCommentsOrdersReasonCommentsEye ExamReasonCommentsPatient QuestionReason CommentsPatient RequestReasonCommentsEstablished PatientReasonOnset DateComments Refill Utuktub3108/21/2024ReasonCommentsEstablished PatientDiarrhea 3 mos follow upReasonCommentsSkin CheckReasonCommentsAppointmentThoracentesisReasonComments Lab & Test ResultsHospital Follow UpReasonCommentsAppointment ConfirmationReason CommentsRadio Gen RMPReasonCommentsEstablished PatientAbdominal painAbdominal PainReasonCommentsRefill RequestSpecialtyDiagnoses / ProceduresReferred By ContactReferred To ContactADMITTING Diagnoses 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] Procedures THORACENTESIS NEEDLE/CATH PLEURA W/IMAGING THORACENTESIS NEEDLE OR CATHETER ASPIRATION OF THE PLEURAL SPACE W IMAGING GUIDANCE Admitting [address] [place] [address] Referral IDStatusReasonStart DateExpiration DateVisits RequestedVisits [id number] Main J7YqnktrReahziuvLpzcne UpReason CommentsRadio Gen AM3GzjzubDsxgpxvvGee PatientReasonCommentsFollow UpShortness of BreathReasonCommentsRadio Gen Y06YoodnaZwkifhuwQaswhziLvbufoTojnparbhsfebihl alkaline phosphataseSpecialtyDiagnoses / ProceduresReferred By ContactReferred To Contact Diagnoses Elevated alkaline phosphatase level Procedures CONSULT TO HEPATOLOGY OFFICE/OUTPATIENT [facility] MDM 60 MINUTES Xiomara Ly, CARDIOPULMONARY TECHNICIAN.TRUCK BODY BUILDER [address] [facility] [place] [address] Phone: tel: fax: Referral IDStatusReasonStart DateExpiration DateVisits RequestedVisits [id number] PCP Requested Referral [id number] UpSpecialtyDiagnoses / ProceduresReferred By ContactReferred To ContactNephrology Diagnoses Elevated serum creatinine Procedures OFFICE/OUTPATIENT [facility] 60 MINUTES Marlyn Hooper APRN.TRUCK BODY BUILDER [address] [place] [address] Phone: tel: fax: Referral IDStatusReasonStart DateExpiration DateVisits RequestedVisits [id number] PCP Requested Referral /[id number] ProblemPT is here today with his spouse for wound distal Lt 2nd toe, he states it is painful for him. First noticed this Saturday evening. PCP rx'd augmentin, per redness has improved.SS: 10.5-11 ReasonCommentsWound CheckEstablished patient presents today for 7-10 day wound fuv of the left 2nd toe. Patient states finished augmentin on 03/20/25. Patient has been using mupirocin ointment and band- aidReasonCommentsNail care/Wound checkSholli Raymundo is a 75 y.o. male. Established patient relates he was in [facility] 6 days 04/02/2025,Cellulitis left foot to groin. Presents today for Nail care and wound fuv of the left 2ndtoe. Patient states Doxycycline and Augmentin until Saturday. Patient has been using mupirocin ointment and band- aid. Care Teams (unrecognized sec tion and content) Team MemberRelationshipSpecialtyStart DateEnd Date Yuli Mariscal, DO [address] [facility] [place] [address] [address] PCP - GeneralInternal Medicine06/29/14 Yuli Mariscal, DO [address] [place] [address] Internal Medicine06/29/14 Karthik Calloway MD Consulting PhysicianOrthopedic Surgery01/28/17Team MemberRelationshipSpecialty Start DateEnd Date Yuli Mariscal, DO [address] [place] [address] PCP - GeneralInternal Medicine06/29/14 Yuli Mariscal, DO [address] [facility] [address] [facility] [address] Internal Medicine06/29/14 Karthik Calloway MD [address] [facility] [place] [address] Consulting PhysicianOrthopedic Surgery01/28/17Team MemberRelationshipSpecialty Start DateEnd Date Yuli Mariscal, DO [address] [facility] [place] [address] PCP - GeneralInternal Medicine06/29/14 Yuli Mariscal, DO [address] [facility] [place] [address] [address] [place] [address] Internal Medicine06/29/14 Karthik Calloway MD [address] [facility] [place] [address] Consulting PhysicianOrthopedic Surgery01/28/17Team MemberRelationshipSpecialty Start DateEnd Date Yuli Mariscal, DO [address] [facility] [place] [address] PCP - GeneralInternal Medicine06/29/14 Yuli Mariscal, DO [address] [facility] [place] [address] Internal Medicine06/29/14 Karthik Calloway MD [address] [facility] [place] [address] Consulting PhysicianOrthopedic Surgery01/28/17Team MemberRelationshipSpecialty Start DateEnd Date Yuli Mariscal, DO [address] [facility] [place] [address] PCP - GeneralInternal Medicine06/29/14 Yuli Mariscal, DO [address] [facility] [place] [address] Internal Medicine06/29/14 Karthik Calloway MD [address] [facility] [place] [address] Consulting PhysicianOrthopedic Surgery01/28/17Team MemberRelationshipSpecialty Start DateEnd Date Yuli Mariscal, DO [address] [place] [address] PCP - GeneralInternal Medicine06/29/14 Yuli Mariscal, DO [address] [place] [address] Internal Medicine06/29/14 Karthik Calloway MD [address] [place] [address] Consulting PhysicianOrthopedic Surgery01/28/17Team MemberRelationshipSpecialty Start DateEnd Date Yuli Mariscal, DO [address] [place] [address] PCP - GeneralInternal Medicine06/29/14 Yuli Mariscal, DO [address] [place] [address] Internal Medicine06/29/14 Karthik Calloway MD [address] [facility] [address] Consulting PhysicianOrthopedic Surgery01/28/17Team MemberRelationshipSpecialty Start DateEnd Date Yuli Mariscal DO [address] [place] [address] PCP - GeneralInternal Medicine06/29/14 Yuli Mariscal, DO [address] [place] [address] Internal Medicine06/29/14 Karthik Calloway MD [address] [place] [address] Consulting PhysicianOrthopedic Surgery01/28/17Team MemberRelationshipSpecialty Start DateEnd Date uYli Mariscal [address] [facility] [place] [address] PCP - GeneralInternal Medicine06/29/14 Yuli Maris[address] [place] [address] [place] [address] Internal Medicine06/29/14 Karthik Calloway MD [address] [facility] [place] [address] Consulting PhysicianOrthopedic Surgery01/28/17 Team Status: Inactive Member Role Status Dates Yuli Mariscal DO Primary Care Provide r, Attending Provider Active Start: August 13, 2023 End: August 13, 2023 Team Status: Active Member Role Status John Mariscal DO Primary Care Provide r, Attending Provider Active Start: August 15, 2023 Team Status: Active Member Role Status John Mariscal DO Primary Care Provide r, Attending Provider Active Start: August 21, 2023 Team Status: Active Member Role Status John Mariscal DO Primary Care Provide r, Attending Provider Active Start: August 22, 2023 Team Status: Active Member Role Status John Mariscal DO Primary Care Provide r, Attending Provider Active Start: August 28, 2023 Team Status: Active Member Role Status John Mariscal DO Primary Care Provide r, Attending Provider Active Start: September 04, 2023 Team Status: Inactive Member Role Status Dates Sintia Clemente DO Attending Provider Active St art: September 04, 2023 End: September 04, 2023 Team Status: Inactive Member Role Status Dates Sintia Clemente DO Attending Provider Active St art: September 05, 2023 End: September 05, 2023 Team Status: Active Member Role Status John Mariscal DO Attending Provider Active Sta rt: September 11, 2023 Team Status: Active Member Role Status John Mariscal DO Attending Provider Active Sta rt: October 01, 2023 Team Status: Inactive Member Role Status Dates Sintia Clemente DO Attending Provider Active St art: October 02, 2023 End: October 02, 2023Team MemberRelationshipSpecialtyStart DateEnd Date Yuli Mariscal DO [address] [place] [facility] [place] [address] PCP - GeneralInternal Medicine12/07/20 Jere Sales [address] [facility] [address] [place] [address] ReferringGastroenterology12/05/20Team MemberRelationshipSpecialtyStart DateEnd Date Yuli Mariscal DO [address] [place] [facility] [place] [address] PCP - GeneralInternal Medicine12/07/20 Jere Sales [address] [facility] [address] [place] [address] ReferringGastroenterology12/05/20 Sintia Clemente DO [address] [facility] [place] [address] Internal Medicine10/16/23Team MemberRelationshipSpecialtyStart DateEnd Date Yuli Mariscal DO [address] [place] [facility] [place] [address] PCP - GeneralInternal Medicine12/07/20 Jere Sales [address] [facility] [address] [place] [address] ReferringGastroenterology12/05/20 Sintia Clemente DO [address] [facility] [place] [address] Internal Medicine10/16/23Team MemberRelationshipSpecialtyStart DateEnd Date Yuli Mariscal DO [address] [place] [facility] [place] [address] PCP - GeneralInternal Medicine12/07/20 Jere Sales [address] [facility] [address] [place] [address] ReferringGastroenterology12/05/20 Sintia Clemente DO [address] [facility] [place] [address] Internal Medicine10/16/23Team MemberRelationshipSpecialtyStpond creek DateEnd Date Yuli Mariscal DO [address] [place] [facility] [place] [address] PCP - GeneralInternal Medicine12/07/20 Jere Sales [address] [place] [address] ReferringGastroenterology12/05/20 Sintia Clemente DO [address] [facility] [place] [address] Internal Medicine10/16/23Team MemberRelationshipSpecialtyStart DateEnd Date Yuli Mariscal DO [address] [place] [facility] [place] [address] PCP - GeneralInternal Medicine12/07/20 Jere Sales [address] [facility] [address] [place] [address] ReferringGastroenterology12/05/20 Sintia Clemente DO [address] [facility] [place] [address] Internal Medicine10/16/23Team MemberRelationshipSpecialtyStart DateEnd Yuli Howell DO [address] [place] [facility] [place] [address] PCP - GeneralInternal Medicine12/07/20 Jere Sales [address] [facility] [address] [place] [address] ReferringGastroenterology12/05/20 Sintia Clemente DO [address] [facility] [place] [address] Internal Medicine10/16/23Team MemberRelationshipSpecialtyStart DateEnd Yuli Howell DO [address] [place] [facility] [place] [address] PCP - GeneralInternal Medicine12/07/20 Jere Sales [address] [place] [address] ReferringGastroenterology12/05/20 Sintia Clemente DO [address] [facility] [place] [address] Internal Medicine10/16/23Team MemberRelationshipSpecialtyStart DateEnd Yuli Howell DO [address] [place] [place] [address] PCP - GeneralInternal Medicine12/07/20 Jere Sales [address] [place] [address] ReferringGastroenterology12/05/20 Sintia Clemente DO [address] [facility] [place] [address] Internal Medicine10/16/23Team MemberRelationshipSpecialtyStart DateEnd Date Yuli Mariscal DO [address] [place] [place] [address] PCP - GeneralInternal Medicine12/07/20 Jere Sales [address] [address] ReferringGastroenterology12/05/20 Sintia Clemente DO [address] [facility] [place] [address] Internal Medicine10/16/23Team MemberRelationshipSpecialtyStart DateEnd Yuli Howell DO [address] [place] [facility] [place] [address] PCP - GeneralInternal Medicine12/07/20 Jere Sales [address] [place] [address] ReferringGastroenterology12/05/20 Sintia Clemente DO [address] [facility] [place] [address] Internal Medicine10/16/23Team MemberRelationshipSpecialtyStart DateEnd Date Yuli Mariscal DO [address] [place] [place] [address] PCP - GeneralInternal Medicine12/07/20 Jere Sales [address] [place] [address] ReferringGastroenterology12/05/20 Sintia Clemente DO [address] [facility] [place] [address] Internal Medicine10/16/23Team MemberRelationshipSpecialtyStart DateEnd Date Yuli Mariscal DO [address] [place] [facility] [place] [address] PCP - GeneralInternal Medicine12/07/20 Jere Sales [address] [place] [address] ReferringGastroenterology12/05/20 Sintia Clemente DO [address] [facility] [place] [address] Internal Medicine10/16/23Team MemberRelationshipSpecialtyStart DateEnd Date Yuli Mariscal DO [address] [place] [place] [address] PCP - GeneralInternal Medicine12/07/20 Jere Sales [address] [place] [address] ReferringGastroenterology12/05/20 Sintia Clemente DO [address] [facility] [place] [address] Internal Medicine10/16/23Team MemberRelationshipSpecialtyStart DateEnd Date Yuli Mariscal DO [address] [place] [facility] [place] [address] PCP - GeneralInternal Medicine12/07/20 Jere Sales [address] [place] [address] ReferringGastroenterology12/05/20 Sintia Clemente DO [address] [facility] [place] [address] Internal Medicine10/16/23Team MemberRelationshipSpecialtyStart DateEnd Date Yuli Mariscal DO [address] [place] [facility] [place] [address] PCP - GeneralInternal Medicine12/07/20 Jere Sales [address] [place] [address] ReferringGastroenterology12/05/20 Sintia Clemente DO [address] [facility] [place] [address] Internal Medicine10/16/23Team MemberRelationshipSpecialtyStart DateEnd Date Yuli Mariscal DO [address] [place] [place] [address] PCP - GeneralInternal Medicine12/07/20 Jere Sales [address] [place] [address] ReferringGastroenterology12/05/20 Sintia Clemente DO [address] [facility] [place] [address] Internal Medicine10/16/23Team MemberRelationshipSpecialtyStart DateEnd Date Yuli Mariscal DO [address] [place] [facility] [place] [address] PCP - GeneralInternal Medicine12/07/20 Jere Sales [address] [address] ReferringGastroenterology12/05/20 Sintia Clemente DO [address] [facility] [place] [address] Internal Medicine10/16/23Team MemberRelationshipSpecialtyStart DateEnd Date Yuli Mariscal DO [address] [place] [facility] [place] [address] PCP - GeneralInternal Medicine12/07/20 Jere Sales [address] [address] ReferringGastroenterology12/05/20 Sintia Clemente DO [address] [facility] [place] [address] Internal Medicine10/16/23Team MemberRelationshipSpecialtyStart DateEnd Date Yuli Mariscal DO [address] [place] [place] [address] PCP - GeneralInternal Medicine12/07/20 Jere Sales [address] [place] [address] ReferringGastroenterology12/05/20 Sintia Clemente DO [address] [facility] [place] [address] Internal Medicine10/16/23Team MemberRelationshipSpecialtyStart DateEnd Date Yuli Mariscal DO [address] [place] [place] [address] PCP - GeneralInternal Medicine12/07/20 Jere Sales [address] [address] ReferringGastroenterology12/05/20 Sintia Clemente DO [address] [facility] [place] [address] Internal Medicine10/16/23Team MemberRelationshipSpecialtyStart DateEnd Date Yuli Mariscal DO [address] [place] [place] [address] PCP - GeneralInternal Medicine12/07/20 Jere Sales [address] [place] [address] ReferringGastroenterology12/05/20 Sintia Clemente DO [address] [facility] [place] [address] Internal Medicine10/16/23Team MemberRelationshipSpecialtyStart DateEnd Date Yuli Mariscal DO [address] [place] [place] [address] PCP - GeneralInternal Medicine12/07/20 Jere Sales [address] [place] [address] ReferringGastroenterology12/05/20 Sintia Clemente DO [address] [facility] [place] [address] Internal Medicine10/16/23Team MemberRelationshipSpecialtyStart DateEnd Date Yuli Mariscal DO [address] [place] [facility] [place] [address] PCP - GeneralInternal Medicine12/07/20 Jere Sales [address] [place] [address] ReferringGastroenterology12/05/20 Sintia Clemente DO [address] [facility] [place] [address] Internal Medicine10/16/23Team MemberRelationshipSpecialtyStart DateEnd Date Yuli Mariscal DO [address] [place] [place] [address] PCP - GeneralInternal Medicine12/07/20 Jere Sales [address] [place] [address] ReferringGastroenterology12/05/20 Sintia Clemente DO [address] [facility] [place] [address] Internal Medicine10/16/23Team MemberRelationshipSpecialtyStart DateEnd Date Yuli Mariscal DO [address] [place] [place] [address] PCP - GeneralInternal Medicine12/07/20 Jere Sales [address] [facility] [address] [place] [address] ReferringGastroenterology12/05/20 Sintia Clemente DO [address] [facility] [place] [address] Internal Medicine10/16/23Team MemberRelationshipSpecialtyStart DateEnd Date Yuli Mariscal DO [address] [place] [place] [address] PCP - GeneralInternal Medicine12/07/20 Jere Sales [address] [facility] [address] [place] [address] ReferringGastroenterology12/05/20 Sintia Clemente DO [address] [facility] [place] [address] Internal Medicine10/16/23Team MemberRelationshipSpecialtyStart DateEnd Date Yuli Mariscal DO [address] [place] [place] [address] PCP - GeneralInternal Medicine12/07/20 BeerJere wheeler [address] [place] [address] ReferringGastroenterology12/05/20 Sintia Clemente DO [address] [facility] [place] [address] Internal Medicine10/16/23Team MemberRelationshipSpecialtyStart DateEnd Date Yuli Mariscal, [address] [place] [place] [address] PCP - GeneralInternal Medicine12/07/20 [facility] CorporationJere wheeler [address] [place] [address] ReferringGastroenterology12/05/20 Sintia Clemente DO [address] [facility] [place] [address] Internal Medicine10/16/23Team MemberRelationshipSpecialtyStart DateEnd Date Yuli Mariscal DO [address] [place] [facility] [place] [address] PCP - GeneralInternal Medicine12/07/[address] Jere Cynthia [address] [place] [address] ReferringGastroenterology12/05/20 Sintia Clemente DO [address] [facility] [place] [address] Internal Medicine10/16/23Team MemberRelationshipSpecialtyStart DateEnd Date Yuli Mariscal DO [address] [place] [place] [address] PCP - GeneralInternal Medicine12/07/20 Jere Sales [address] [facility] [address] [place] [address] ReferringGastroenterology12/05/20 Sintia Clemente DO [address] [facility] [place] [address] Internal Medicine10/16/23Team MemberRelationshipSpecialtyStart DateEnd Date Yuli Mariscal DO [address] [place] [place] [address] PCP - GeneralInternal Medicine12/07/20 Jere Sales [address] [facility] [address] [place] [address] ReferringGastroenterology12/05/20 Sintia Clemente DO [address] [facility] [place] [address] Internal Medicine10/16/23Team MemberRelationshipSpecialtyStart DateEnd Date Yuli Mariscal DO [address] [place] [place] [address] PCP - GeneralInternal Medicine12/07/20 Jere Sales [address] [facility] [address] [place] [address] ReferringGastroenterology12/05/20 Sintia Clemente DO [address] [facility] [place] [address] Internal Medicine10/16/23Team MemberRelationshipSpecialtyStart DateEnd Yuli Howell DO [address] [place] [facility] [place] [address] PCP - GeneralInternal Medicine12/07/20 Jere Sales [address] [place] [address] ReferringGastroenterology12/05/20 Sintia Clemente DO [address] [facility] [place] [address] Internal Medicine10/16/23Team MemberRelationshipSpecialtyStart DateEnd Yuli Howell DO [address] [place] [address] PCP - GeneralInternal Medicine12/07/20 Jere Sales [address] [place] [address] ReferringGastroenterology12/05/20 Sintia Clemente DO [address] [facility] [place] [address] Internal Medicine10/16/23Team MemberRelationshipSpecialtyStart DateEnd Yuli Howell DO [address] [place] [facility] [place] [address] PCP - GeneralInternal Medicine12/07/20 Jere Sales [address] [address] ReferringGastroenterology12/05/20 Sintia Clemente DO [address] [place] [address] Internal Medicine10/16/23Team MemberRelationshipSpecialtyStart DateEnd Date Yuli Mariscal, [address] [place] [place] [address] PCP - GeneralInternal Medicine12/07/20 Jere Sales [address] [address] ReferringGastroenterology12/05/20 Sintia Clemente DO [address] [facility] [place] [address] Internal Medicine10/16/23Team MemberRelationshipSpecialtyStart DateEnd Date Yuli Mariscal DO [address] [place] [address] PCP - GeneralInternal Medicine12/07/20 Jere Sales [address] [address] ReferringGastroenterology12/05/20 Sintia Clemente DO [address] [facility] [place] [address] Internal Medicine10/16/23Team MemberRelationshipSpecialtyStart DateEnd Date Yuli Mariscal DO [address] [place] [address] PCP - GeneralInternal Medicine12/07/20 Jere Sales [address] [place] [address] ReferringGastroenterology12/05/20 Sintia Clemente DO [address] [facility] [place] [address] Internal Medicine10/16/23Team MemberRelationshipSpecialtyStart DateEnd Date Yuli Mariscal DO [address] [place] [place] [address] PCP - GeneralInternal Medicine12/07/20 Jere Sales [address] [place] [address] ReferringGastroenterology12/05/20 Sintia Clemente DO [address] [facility] [place] [address] Internal Medicine10/16/23Team MemberRelationshipSpecialtyStart DateEnd Date Yuli Mariscal DO [address] [place] [place] [address] PCP - GeneralInternal Medicine12/07/20 Jere Sales [address] [place] [address] ReferringGastroenterology12/05/20 Sintia Clemente DO [address] [facility] [place] [address] Internal Medicine10/16/23Team MemberRelationshipSpecialtyStart DateEnd Date Yuli Mariscal DO [address] [place] [facility] [place] [address] PCP - GeneralInternal Medicine12/07/20 Jere Sales [address] [place] [address] ReferringGastroenterology12/05/20 Sintia Clemente DO [address] [facility] [place] [address] Internal Medicine10/16/23Team MemberRelationshipSpecialtyStart DateEnd Date Yuli Mariscal DO [address] [place] [address] PCP - GeneralInternal Medicine12/07/20 Jere Sales [address] [place] [address] ReferringGastroenterology12/05/20 Sintia Clemente DO [address] [facility] [place] [address] Internal Medicine10/16/23Team MemberRelationshipSpecialtyStart DateEnd Date Yuli Mariscal DO [address] [place] [address] PCP - GeneralInternal Medicine12/07/20 Jere Sales MD [address] [place] [address] ReferringGastroenterology12/05/20 Sintia Clemente DO [address] [place] [address] Internal Medicine10/16/23Team MemberRelationshipSpecialtyStart DateEnd Date Yuli Mariscal DO [address] [place] [address] PCP - GeneralInternal Medicine06/29/14 Yuli Mariscal DO [address] [place] [address] Internal Medicine06/29/14 Karthik Calloway MD [address] [place] [address] Consulting PhysicianOrthopedic Surgery01/28/17Team MemberRelationshipSpecialty Start DateEnd Date Yuli Mariscal DO [address] [place] [address] PCP - GeneralInternal Medicine12/07/20 Jere Sales MD [address] [place] [address] ReferringGastroenterology12/05/20 Sintia Clemente DO [address] [place] [address] Internal Medicine10/16/23Team MemberRelationshipSpecialtyStart DateEnd Date Yuli Mariscal DO [address] [place] [address] PCP - GeneralInternal Medicine12/07/20 Jere Sales MD [address] [facility] [address] [place] [address] ReferringGastroenterology12/05/20 Sintia Clemente DO [address] [facility] [place] [address] Internal Medicine10/16/23Team MemberRelationshipSpecialtyStart DateEnd Date Yuli Mariscal DO [address] [place] [address] PCP - GeneralInternal Medicine12/07/20 Jere Sales MD [address] [address] ReferringGastroenterology12/05/20 Sintia Clemente DO [address] [facility] [place] [address] Internal Medicine10/16/23Team MemberRelationshipSpecialtyStart DateEnd Yuli Howell DO [address] [place] [address] PCP - GeneralInternal Medicine12/07/20 Jere Sales MD [address] [place] [address] ReferringGastroenterology12/05/20 Sintia Clemente DO [address] [facility] [place] [address] Internal Medicine10/16/23Team MemberRelationshipSpecialtyStart DateEnd Date Yuli Mariscal DO [address] [place] [facility] [place] [address] PCP - GeneralInternal Medicine12/07/20 Jere Sales MD [address] [place] [address] ReferringGastroenterology12/05/20 Sintia Clemente DO [address] [facility] [place] [address] Internal Medicine10/16/23Team MemberRelationshipSpecialtyStart DateEnd Date Yuli Mariscal DO [address] [place] [facility] [place] [address] PCP - GeneralInternal Medicine12/07/20 Jere Sales MD [address] [place] [address] ReferringGastroenterology12/05/20 Sintia Clemente DO [address] [facility] [place] [address] Internal Medicine10/16/23Team MemberRelationshipSpecialtyStart DateEnd Date Yuli Mariscal DO [address] [place] [facility] [place] [address] PCP - GeneralInternal Medicine12/07/20 Jere Sales MD [address] [place] [address] ReferringGastroenterology12/05/20 Sintia Clemente DO [address] [facility] [place] [address] Internal Medicine10/16/23Team MemberRelationshipSpecialtyStart DateEnd Yuli Howell DO [address] [place] [facility] [place] [place] [address] PCP - GeneralInternal Medicine12/07/20 Jere Sales MD [address] [place] [address] ReferringGastroenterology12/05/20 Sintia Clemente DO [address] [facility] [place] [address] Internal Medicine10/16/23Team MemberRelationshipSpecialtyStart DateEnd Yuli Howell DO [address] [place] [facility] [place] [place] [address] PCP - GeneralInternal Medicine12/07/20 Jere Sales MD [address] [place] [address] ReferringGastroenterology12/05/20 Sintia Clemente DO [address] [facility] [place] [address] Internal Medicine10/16/23Team MemberRelationshipSpecialtyStart DateEnd Yuli Howell DO [address] [place] [facility] [place] [place] [address] PCP - GeneralInternal Medicine12/07/20 Jere Sales MD [address] [facility] [address] [place] [address] ReferringGastroenterology12/05/20 Sintia Clemente DO [address] [facility] [place] [address] Internal Medicine10/16/23Team MemberRelationshipSpecialtyStart DateEnd Yuli Howell DO [address] [place] [facility] [place] [place] [address] PCP - GeneralInternal Medicine12/07/20 Jere Sales MD [address] [place] [address] ReferringGastroenterology12/05/20 Sintia Clemente DO [address] [facility] [place] [address] Internal Medicine10/16/23Team MemberRelationshipSpecialtyStart DateYuli Estrada DO [address] [place] [facility] [place] [place] [address] PCP - GeneralInternal Medicine12/07/20 Jere Sales MD [address] [place] [address] ReferringGastroenterology12/05/20 Sintia Clemente DO [address] [facility] [place] [address] Internal Medicine10/16/23Team MemberRelationshipSpecialtyStart DateEnd Yuli Howell DO [address] [place] [facility] [place] [address] PCP - GeneralInternal Medicine12/07/20 Jere Sales MD [address] [place] [address] ReferringGastroenterology12/05/20 Sintia Clemente DO [address] [facility] [place] [address] Internal Medicine10/16/23Team MemberRelationshipSpecialtyStart DateEnd Date Yuli Mariscal DO [address] [place] [facility] [place] [address] PCP - GeneralInternal Medicine12/07/20 Jere Sales MD [address] [place] [address] ReferringGastroenterology12/05/20 Sintia Clemente DO [address] [facility] [place] [address] Internal Medicine10/16/23 Team Status: Active Member Role [...] Provider Active Start: August 13, 2024 Joselin Cullen , CMAAttending ProviderActiveStart: August 13, 2024 Team Status: Active Member Role Status Dates Yuli Mariscal , DO Primary Care Provider Active Start: August 24, 2024 Sueyanira Terrell MDAttending ProviderActiveStart: August 24, 2024 Team Status: Active Member Role Status Dates Yuli Mariscal , DO Primary Care Provide r, Attending Provider Active Start: August 28, 2024 Team Status: Active Member Role Status Dates Yuli Mariscal , DO Primary Care Provider Active Start: August 30, 2024 RAJEEV Miller-CAttending ProviderActiveStart: August 30, 2024 Team Status: Active Member Role Status Dates Yuli Mariscal , DO Primary Care Provide r, Attending Provider Active Start: August 31, 2024 Team Status: Active Member Role Status Dates Yuli Mariscal , DO Primary Care Provider Active Start: September 02, 2024 Joselin Cullen CARRIEAttending ProviderActiveStart: September 02, 2024 Team Status: Active Member Role Status Dates Yuli Mariscal , DO Primary Care Provide r, Attending Provider Active Start: September 03, 2024 Team Status: Inactive Member Role Status Dates Yuli Mariscal , DO Primary Care Provide r, Attending Provider Active Start: September 11, 2024 End: September 11, 2024Team MemberRelationshipSpecialtyStart DateEnd Date Yuli Mariscal DO [address] [place] [address] PCP - GeneralInternal Medicine12/07/20 Jere Sales MD [address] [place] [address] ReferringGastroenterology12/05/20 Sintia Clemente DO [address] [place] [address] Internal Medicine10/16/23Team MemberRelationshipSpecialtyStart DateEnd Date Yuli Mariscal DO [address] [place] [address] PCP - GeneralInternal Medicine12/07/20 Jere Sales MD [address] [address] ReferringGastroenterology12/05/20 Sintia Clemente DO [address] [facility] [place] [address] Internal Medicine10/16/23Team MemberRelationshipSpecialtyStart DateEnd Date Yuli Mariscal DO [address] [place] [facility] [place] [address] PCP - GeneralInternal Medicine12/07/20 Jere Sales MD [address] [address] ReferringGastroenterology12/05/20 Sintia Clemente DO [address] [facility] [place] [address] Internal Medicine10/16/23Team MemberRelationshipSpecialtyStart DateEnd Date Yuli Mariscal DO [address] [place] [facility] [place] [address] PCP - GeneralInternal Medicine12/07/20 Jere Sales MD [address] [address] ReferringGastroenterology12/05/20 Sintia Clemente DO [address] [facility] [place] [address] Internal Medicine10/16/23Team MemberRelationshipSpecialtyStart DateEnd Date Yuli Mariscal DO [address] [place] [address] PCP - GeneralInternal Medicine12/07/20 Jere Sales MD [address] [address] ReferringGastroenterology12/05/20 Sintia Clemente DO [address] [place] [address] Internal Medicine10/16/23Team MemberRelationshipSpecialtyStart DateEnd Date Yuli Mariscal DO [address] [place] [address] PCP - GeneralInternal Medicine12/07/20 Jere Sales MD [address] [address] ReferringGastroenterology12/05/20 Sintia Clemente DO [address] [place] [address] Internal Medicine10/16/23Team MemberRelationshipSpecialtyStart DateEnd Date Yuli Mariscal DO [address] [place] [address] PCP - GeneralInternal Medicine12/07/20 Jere Sales MD [address] [address] ReferringGastroenterology12/05/20 Sintia Clemente DO [address] [facility] [place] [address] Internal Medicine10/16/23Team MemberRelationshipSpecialtyStart DateEnd Date Yuli Mariscal DO [address] [place] [facility] [place] [address] PCP - GeneralInternal Medicine12/07/20 Jere Sales MD [address] [address] ReferringGastroenterology12/05/20 Sintia Clemente DO [address] [facility] [place] [address] Internal Medicine10/16/23Team MemberRelationshipSpecialtyStart [place] [address] [place] [address] PCP - GeneralFamily Medicine12/29/23 Jere Sales MD [address] [place] [address] ReferringGastroenterology12/05/20 Sintia Clemente DO [address] [facility] [place] [address] Internal Medicine10/16/23Team MemberRelationshipSpecialtyStart [place] [address] [place] [address] PCP - GeneralFamily Medicine12/29/23 Jere Sales MD [address] [address] ReferringGastroenterology12/05/20 Sintia Clemente DO [address] [facility] [place] [address] Internal Medicine10/16/23Team MemberRelationshipSpecialtyStart [place] [address] [place] [address] PCP - GeneralFamily Medicine12/29/23 Jere Sales MD [address] [address] ReferringGastroenterology12/05/20 Sintia Clemente DO [address] [facility] [place] [address] Internal Medicine10/16/23Team MemberRelationshipSpecialtyStart [place] [address] [place] [address] PCP - GeneralFamily Medicine12/29/23 Jere Sales MD [address] [address] ReferringGastroenterology12/05/20 Sintia Clemente DO [address] [facility] [place] [address] Internal Medicine10/16/23Team MemberRelationshipSpecialtyStart [place] [address] [place] [address] PCP - GeneralFamily Medicine12/29/23 Jere Sales MD [address] [place] [address] ReferringGastroenterology12/05/20 Sintia Clemente DO [address] [facility] [place] [address] Internal Medicine10/16/23Team MemberRelationshipSpecialtyStart [place] [address] [place] [address] PCP - GeneralFamily Medicine12/29/23 Jere Sales MD [address] [place] [address] ReferringGastroenterology12/05/20 Sintia Clemente DO [address] [facility] [place] [address] Internal Medicine10/16/23Team MemberRelationshipSpecialtyStart [place] [address] [place] [address] PCP - GeneralFamily Medicine12/29/23 Jere Sales MD [address] [place] [address] ReferringGastroenterology12/05/20 Sintia Clemente DO [address] [facility] [place] [address] Internal Medicine10/16/23Team MemberRelationshipSpecialtyStart [place] [address] [place] [address] PCP - GeneralFamily Medicine12/29/23 Jere Sales MD [address] [place] [address] ReferringGastroenterology12/05/20 Sintia Clemente DO [address] [facility] [place] [address] Internal Medicine10/16/23Team MemberRelationshipSpecialtyStart [place] [address] [place] [address] PCP - GeneralFamily Medicine12/29/23 Jere Sales MD [address] [place] [address] ReferringGastroenterology12/05/20 Sintia Clemente DO [address] [facility] [place] [address] Internal Medicine10/16/23Team MemberRelationshipSpecialtyStart [place] [address] [place] [address] PCP - GeneralFamily Medicine12/29/23 Jere Sales MD [address] [address] ReferringGastroenterology12/05/20 Sintia Clemente DO [address] [place] [address] Internal Medicine10/16/23Team MemberRelationshipSpecialtyStart [place] [address] [place] [address] PCP - GeneralFamily Medicine12/29/23 Jere Sales MD [address] [place] [address] ReferringGastroenterology12/05/20 Sintia Clemente DO [address] [facility] [place] [address] Internal Medicine10/16/23Team MemberRelationshipSpecialtyStart [place] [address] [place] [address] PCP - GeneralFamily Medicine12/29/23 Jree Sales MD [address] [place] [address] ReferringGastroenterology12/05/20 Sintia Clemente DO [address] [facility] [place] [address] Internal Medicine10/16/23Team MemberRelationshipSpecialtyStart [place] [address] [place] [address] PCP - GeneralFamily Medicine12/29/23 Jere Sales MD [address] [place] [address] ReferringGastroenterology12/05/20 Sintia Clemente DO [address] [facility] [place] [address] Internal Medicine10/16/23Team MemberRelationshipSpecialtyStart [place] [address] [place] [address] PCP - GeneralFamily Medicine12/29/23 Jere Sales MD [address] [place] [address] ReferringGastroenterology12/05/20 Sintia Clemente DO [address] [facility] [place] [address] Internal Medicine10/16/23Team MemberRelationshipSpecialtyStart [place] [address] [place] [address] PCP - GeneralFamily Medicine12/29/23 Jere Sales MD [address] [place] [address] ReferringGastroenterology12/05/20 Sintia Clemente DO [address] [facility] [place] [address] Internal Medicine10/16/23Team MemberRelationshipSpecialtyStart [place] [address] [place] [address] PCP - GeneralFamily Medicine12/29/23 Jere Sales MD [address] [place] [address] ReferringGastroenterology12/05/20 Sintia Clemente DO [address] [facility] [place] [address] Internal Medicine10/16/23Team MemberRelationshipSpecialtyStart [place] [address] [place] [address] PCP - GeneralFamily Medicine12/29/23 Jere Sales MD [address] [place] [address] ReferringGastroenterology12/05/20 Sintia Clemente DO [address] [facility] [place] [address] Internal Medicine10/16/23Team MemberRelationshipSpecialtyStart [place] [address] [place] [address] PCP - GeneralFamily Medicine12/29/23 Jere Sales MD [address] [address] ReferringGastroenterology12/05/20 Sintia Clemente DO [address] [facility] [place] [address] Internal Medicine10/16/23Team MemberRelationshipSpecialtyStart [place] [address] [place] [address] PCP - GeneralFamily Medicine12/29/23 Jere Sales MD [address] [address] ReferringGastroenterology12/05/20 Sintia Clemente DO [address] [facility] [place] [address] Internal Medicine10/16/23Team MemberRelationshipSpecialtyStart [place] [address] [place] [address] PCP - GeneralFamily Medicine12/29/23 Jere Sales MD [address] [place] [address] ReferringGastroenterology12/05/20 Sintia Clemente, DO [address] [facility] [place] [address] Internal Medicine10/16/23Team MemberRelationshipSpecialtyStart DateEnd Date Yuli Mariscal DO [address] [place] [facility] [place] [address] PCP - GeneralInternal Medicine03/12/25Team MemberRelationshipSpecialtyStart Date End Date Yuli Mariscal DO [address] [facility] [place] [address] PCP - GeneralInternal Medicine03/12/25Team MemberRelationshipSpecialtyStart Date End Date Yuli Mariscal DO [address] [facility] [place] [address] PCP - GeneralInternal Medicine03/12/25Team MemberRelationshipSpecialtyStart Date End Date Yuli Mariscal DO [address] [facility] [place] [address] PCP - GeneralInternal Medicine03/12/25Team MemberRelationshipSpecialtyStart Date End Date Yuli Mariscal DO [address] [place] [facility] [place] [address] PCP - GeneralInternal Medicine03/12/25Team MemberRelationshipSpecialtyStart Date End Date LoidaYuli DO Pepe [address] [facility] [place] [address] PCP - GeneralInternal Medicine03/12/25 Team Status: Active Member Role/Relationship Status Dates Yuli Mariscal DO Primary Care Provider Active Team Status: Active Member Role/Relationship Status Dates Yuli Mariscal DO Primary Care Provider Active Start: April 02, 2025 Yehuda Boggs DOAttending ProviderActiveStart: April 02, 2025 Team Status: Active Member Role/Relationship Status Dates Yuli Mariscal DO Primary Care Provider Active Start: April 03, 2025 Bijal Kaur , MDAttending ProviderActiveStart: April 03, 2025 Team Status: Active Member Role/Relationship Status Dates Yuli Mariscal DO Primary Care Provider Active Start: April 04, 2025 Bijal Kaur MDAttending ProviderActiveStart: April 04, 2025 Team Status: Active Member Role/Relationship Status Dates Yuli Mariscal DO Primary Care Provider Active Start: April 05, 2025 Bijal Kaur MDAttending ProviderActiveStart: April 05, 2025 Team Status: Active Member Role/Relationship Status Dates Yuli Mariscal DO Primary Care Provider Active Start: April 06, 2025 Pablito Hoffman MDAttending ProviderActiveStart: April 06, 2025 Team Status: Active Member Role/Relationship Status Dates Yuli Mariscal DO Primary Care Provider Active Start: April 07, 2025 Pablito Hoffman MDAttending ProviderActiveStart: April 07, 2025 Team Status: Active Member Role/Relationship Status Dates Yuli Mariscal DO Primary Care Provider Active Start: April 08, 2025 Joselin Berman CMAAttending ProviderActiveStart: April 08, 2025 Team Status: Inactive Member Role/Relationship Status Dates Yuli Mariscal DO Primary Care Provider Active Start: April 09, 2025 End: April 09nigel Mariscal DOAttending ProviderActiveStart: April 09, 2025 End: April 09, 2025Team MemberRelationshipSpecialtyStart DateEnd Date Yuli Mariscal DO [address] [facility] [place] [address] PCP - GeneralInternal Medicine03/12/25Team MemberRelationshipSpecialtyStart Date End Date Yuli Mariscal DO [address] [facility] [place] [address] PCP - GeneralInternal Medicine03/12/25 (unrecognized sect ion and content) No Status Records FoundNo Status Records FoundNo Status Records FoundNo Status Records FoundNo Status Records FoundNo Status Records FoundNo Status Records FoundNo Status Records FoundNo Status Records FoundNo Status Records Found INFORMATION SOURCE (unrecogn ized section and content) DATE CREATED AUTHOR 03/22/2022 [facility] DATE CREATED AUTHOR AUTHOR'S ORGANIZ ATION 02/16/2023 [facility] DATE CREATED AUTHOR AUTHOR'S ORGANIZ ATION 10/13/2023 [facility] DATE CREATED AUTHOR AUTHOR'S ORGANIZ ATION 03/19/2024 [facility] DATE CREATED AUTHOR AUTHOR'S ORGANIZ ATION 03/23/2024 [facility] DATE CREATED AUTHOR AUTHOR'S ORGANIZ ATION 05/02/2024 [facility] DATE CREATED AUTHOR AUTHOR'S ORGANIZ ATION 11/28/2024 [facility] DATE CREATED AUTHOR AUTHOR'S ORGANIZ ATION 03/31/2025 [facility] DATE CREATED AUTHOR AUTHOR'S ORGANIZ ATION 04/16/2025 [facility] DATE CREATED AUTHOR AUTHOR'S ORGANIZ ATION 04/18/2025 [facility] Goals (unrecognized section and content) Goals may be documented in a n alternate section Source Comments (unrecognize d section and content) In the event this informatio n is protected by the Federal Confidentiality of Alcohol and Drug Abuse Patient Records regulations: The Federal rules restrict any use of the information to criminally investigate or prosecute any alcohol or drug abuse patient.[facility] the event this information is protected by the Federal Confidentiality of Alcohol and Drug Abuse Patient Records regulations: The Federal rules restrict any use of the information to criminally investigate or prosecute any alcohol or drug abuse patient.[facility] CenterIn the event this information is protected by the Federal Confidentiality of Alcohol and Drug Abuse Patient Records regulations: The Federal rules restrict any use of the information to criminally investigate or prosecute any alcohol or drug abuse patient.[facility] CenterIn the event this information is protected by the Federal Confidentiality of Alcohol and Drug Abuse Patient Records regulations: The Federal rules restrict any use of the information to criminally investigate or prosecute any alcohol or drug abuse patient.[facility] CenterIn the event this information is protected by the Federal Confidentiality of Alcohol and Drug Abuse Patient Records regulations: The Federal rules restrict any use of the information to criminally investigate or prosecute any alcohol or drug abuse patient.[facility] CenterIn the event this information is protected by the Federal Confidentiality of Alcohol and Drug Abuse Patient Records regulations: The Federal rules restrict any use of the information to criminally investigate or prosecute any alcohol or drug abuse patient.[facility] CenterIn the event this information is protected by the Federal Confidentiality of Alcohol and Drug Abuse Patient Records regulations: The Federal rules restrict any use of the information to criminally investigate or prosecute any alcohol or drug abuse patient.[facility] CenterIn the event this information is protected by the Federal Confidentiality of Alcohol and Drug Abuse Patient Records regulations: The Federal rules restrict any use of the information to criminally investigate or prosecute any alcohol or drug abuse patient.[facility] CenterIn the event this information is protected by the Federal Confidentiality of Alcohol and Drug Abuse Patient Records regulations: The Federal rules restrict any use of the information to criminally investigate or prosecute any alcohol or drug abuse patient.[facility] CenterIn the event this information is protected by the Federal Confidentiality of Alcohol and Drug Abuse Patient Records regulations: The Federal rules restrict any use of the information to criminally investigate or prosecute any alcohol or drug abuse patient.[facility] CenterIn the event this information is protected by the Federal Confidentiality of Alcohol and Drug Abuse Patient Records regulations: The Federal rules restrict any use of the information to criminally investigate or prosecute any alcohol or drug abuse patient.[facility] CenterIn the event this information is protected by the Federal Confidentiality of Alcohol and Drug Abuse Patient Records regulations: The Federal rules restrict any use of the information to criminally investigate or prosecute any alcohol or drug abuse patient.[facility] CenterIn the event this information is protected by the Federal Confidentiality of Alcohol and Drug Abuse Patient Records regulations: The Federal rules restrict any use of the information to criminally investigate or prosecute any alcohol or drug abuse patient.[facility] CenterIn the event this information is protected by the Federal Confidentiality of Alcohol and Drug Abuse Patient Records regulations: The Federal rules restrict any use of the information to criminally investigate or prosecute any alcohol or drug abuse patient.[facility] CenterIn the event this information is protected by the Federal Confidentiality of Alcohol and Drug Abuse Patient Records regulations: The Federal rules restrict any use of the information to criminally investigate or prosecute any alcohol or drug abuse patient.[facility] CenterIn the event this information is protected by the Federal Confidentiality of Alcohol and Drug Abuse Patient Records regulations: The Federal rules restrict any use of the information to criminally investigate or prosecute any alcohol or drug abuse patient.[facility] CenterIn the event this information is protected by the Federal Confidentiality of Alcohol and Drug Abuse Patient Records regulations: The Federal rules restrict any use of the information to criminally investigate or prosecute any alcohol or drug abuse patient.[facility] CenterIn the event this information is protected by the Federal Confidentiality of Alcohol and Drug Abuse Patient Records regulations: The Federal rules restrict any use of the information to criminally investigate or prosecute any alcohol or drug abuse patient.[facility] CenterIn the event this information is protected by the Federal Confidentiality of Alcohol and Drug Abuse Patient Records regulations: The Federal rules restrict any use of the information to criminally investigate or prosecute any alcohol or drug abuse patient.[facility] CenterIn the event this information is protected by the Federal Confidentiality of Alcohol and Drug Abuse Patient Records regulations: The Federal rules restrict any use of the information to criminally investigate or prosecute any alcohol or drug abuse patient.[facility] CenterIn the event this information is protected by the Federal Confidentiality of Alcohol and Drug Abuse Patient Records regulations: The Federal rules restrict any use of the information to criminally investigate or prosecute any alcohol or drug abuse patient.[facility] CenterIn the event this information is protected by the Federal Confidentiality of Alcohol and Drug Abuse Patient Records regulations: The Federal rules restrict any use of the information to criminally investigate or prosecute any alcohol or drug abuse patient.[facility] CenterIn the event this information is protected by the Federal Confidentiality of Alcohol and Drug Abuse Patient Records regulations: The Federal rules restrict any use of the information to criminally investigate or prosecute any alcohol or drug abuse patient.[facility] CenterIn the event this information is protected by the Federal Confidentiality of Alcohol and Drug Abuse Patient Records regulations: The Federal rules restrict any use of the information to criminally investigate or prosecute any alcohol or drug abuse patient.[facility] CenterIn the event this information is protected by the Federal Confidentiality of Alcohol and Drug Abuse Patient Records regulations: The Federal rules restrict any use of the information to criminally investigate or prosecute any alcohol or drug abuse patient.[facility] CenterIn the event this information is protected by the Federal Confidentiality of Alcohol and Drug Abuse Patient Records regulations: The Federal rules restrict any use of the information to criminally investigate or prosecute any alcohol or drug abuse patient.[facility] CenterIn the event this information is protected by the Federal Confidentiality of Alcohol and Drug Abuse Patient Records regulations: The Federal rules restrict any use of the information to criminally investigate or prosecute any alcohol or drug abuse patient.[facility] CenterIn the event this information is protected by the Federal Confidentiality of Alcohol and Drug Abuse Patient Records regulations: The Federal rules restrict any use of the information to criminally investigate or prosecute any alcohol or drug abuse patient.[facility] CenterIn the event this information is protected by the Federal Confidentiality of Alcohol and Drug Abuse Patient Records regulations: The Federal rules restrict any use of the information to criminally investigate or prosecute any alcohol or drug abuse patient.[facility] CenterIn the event this information is protected by the Federal Confidentiality of Alcohol and Drug Abuse Patient Records regulations: The Federal rules restrict any use of the information to criminally investigate or prosecute any alcohol or drug abuse patient.[facility] CenterIn the event this information is protected by the Federal Confidentiality of Alcohol and Drug Abuse Patient Records regulations: The Federal rules restrict any use of the information to criminally investigate or prosecute any alcohol or drug abuse patient.[facility] CenterIn the event this information is protected by the Federal Confidentiality of Alcohol and Drug Abuse Patient Records regulations: The Federal rules restrict any use of the information to criminally investigate or prosecute any alcohol or drug abuse patient.[facility] CenterIn the event this information is protected by the Federal Confidentiality of Alcohol and Drug Abuse Patient Records regulations: The Federal rules restrict any use of the information to criminally investigate or prosecute any alcohol or drug abuse patient.[facility] CenterIn the event this information is protected by the Federal Confidentiality of Alcohol and Drug Abuse Patient Records regulations: The Federal rules restrict any use of the information to criminally investigate or prosecute any alcohol or drug abuse patient.[facility] CenterIn the event this information is protected by the Federal Confidentiality of Alcohol and Drug Abuse Patient Records regulations: The Federal rules restrict any use of the information to criminally investigate or prosecute any alcohol or drug abuse patient.[facility] CenterIn the event this information is protected by the Federal Confidentiality of Alcohol and Drug Abuse Patient Records regulations: The Federal rules restrict any use of the information to criminally investigate or prosecute any alcohol or drug abuse patient.[facility] CenterIn the event this information is protected by the Federal Confidentiality of Alcohol and Drug Abuse Patient Records regulations: The Federal rules restrict any use of the information to criminally investigate or prosecute any alcohol or drug abuse patient.[facility] CenterIn the event this information is protected by the Federal Confidentiality of Alcohol and Drug Abuse Patient Records regulations: The Federal rules restrict any use of the information to criminally investigate or prosecute any alcohol or drug abuse patient.[facility] CenterIn the event this information is protected by the Federal Confidentiality of Alcohol and Drug Abuse Patient Records regulations: The Federal rules restrict any use of the information to criminally investigate or prosecute any alcohol or drug abuse patient.[facility] CenterIn the event this information is protected by the Federal Confidentiality of Alcohol and Drug Abuse Patient Records regulations: The Federal rules restrict any use of the information to criminally investigate or prosecute any alcohol or drug abuse patient.[facility] CenterIn the event this information is protected by the Federal Confidentiality of Alcohol and Drug Abuse Patient Records regulations: The Federal rules restrict any use of the information to criminally investigate or prosecute any alcohol or drug abuse patient.[facility] CenterIn the event this information is protected by the Federal Confidentiality of Alcohol and Drug Abuse Patient Records regulations: The Federal rules restrict any use of the information to criminally investigate or prosecute any alcohol or drug abuse patient.[facility] CenterIn the event this information is protected by the Federal Confidentiality of Alcohol and Drug Abuse Patient Records regulations: The Federal rules restrict any use of the information to criminally investigate or prosecute any alcohol or drug abuse patient.[facility] CenterIn the event this information is protected by the Federal Confidentiality of Alcohol and Drug Abuse Patient Records regulations: The Federal rules restrict any use of the information to criminally investigate or prosecute any alcohol or drug abuse patient.[facility] CenterIn the event this information is protected by the Federal Confidentiality of Alcohol and Drug Abuse Patient Records regulations: The Federal rules restrict any use of the information to criminally investigate or prosecute any alcohol or drug abuse patient.[facility] CenterIn the event this information is protected by the Federal Confidentiality of Alcohol and Drug Abuse Patient Records regulations: The Federal rules restrict any use of the information to criminally investigate or prosecute any alcohol or drug abuse patient.[facility] CenterIn the event this information is protected by the Federal Confidentiality of Alcohol and Drug Abuse Patient Records regulations: The Federal rules restrict any use of the information to criminally investigate or prosecute any alcohol or drug abuse patient.[facility] CenterIn the event this information is protected by the Federal Confidentiality of Alcohol and Drug Abuse Patient Records regulations: The Federal rules restrict any use of the information to criminally investigate or prosecute any alcohol or drug abuse patient.[facility] CenterIn the event this information is protected by the Federal Confidentiality of Alcohol and Drug Abuse Patient Records regulations: The Federal rules restrict any use of the information to criminally investigate or prosecute any alcohol or drug abuse patient.[facility] CenterIn the event this information is protected by the Federal Confidentiality of Alcohol and Drug Abuse Patient Records regulations: The Federal rules restrict any use of the information to criminally investigate or prosecute any alcohol or drug abuse patient.[facility] CenterIn the event this information is protected by the Federal Confidentiality of Alcohol and Drug Abuse Patient Records regulations: The Federal rules restrict any use of the information to criminally investigate or prosecute any alcohol or drug abuse patient.[facility] CenterIn the event this information is protected by the Federal Confidentiality of Alcohol and Drug Abuse Patient Records regulations: The Federal rules restrict any use of the information to criminally investigate or prosecute any alcohol or drug abuse patient.[facility] CenterIn the event this information is protected by the Federal Confidentiality of Alcohol and Drug Abuse Patient Records regulations: The Federal rules restrict any use of the information to criminally investigate or prosecute any alcohol or drug abuse patient.[facility] CenterIn the event this information is protected by the Federal Confidentiality of Alcohol and Drug Abuse Patient Records regulations: The Federal rules restrict any use of the information to criminally investigate or prosecute any alcohol or drug abuse patient.[facility] CenterIn the event this information is protected by the Federal Confidentiality of Alcohol and Drug Abuse Patient Records regulations: The Federal rules restrict any use of the information to criminally investigate or prosecute any alcohol or drug abuse patient.[facility] CenterIn the event this information is protected by the Federal Confidentiality of Alcohol and Drug Abuse Patient Records regulations: The Federal rules restrict any use of the information to criminally investigate or prosecute any alcohol or drug abuse patient.[facility] CenterIn the event this information is protected by the Federal Confidentiality of Alcohol and Drug Abuse Patient Records regulations: The Federal rules restrict any use of the information to criminally investigate or prosecute any alcohol or drug abuse patient.[facility] CenterIn the event this information is protected by the Federal Confidentiality of Alcohol and Drug Abuse Patient Records regulations: The Federal rules restrict any use of the information to criminally investigate or prosecute any alcohol or drug abuse patient.[facility] CenterIn the event this information is protected by the Federal Confidentiality of Alcohol and Drug Abuse Patient Records regulations: The Federal rules restrict any use of the information to criminally investigate or prosecute any alcohol or drug abuse patient.[facility] CenterIn the event this information is protected by the Federal Confidentiality of Alcohol and Drug Abuse Patient Records regulations: The Federal rules restrict any use of the information to criminally investigate or prosecute any alcohol or drug abuse patient.[facility] CenterIn the event this information is protected by the Federal Confidentiality of Alcohol and Drug Abuse Patient Records regulations: The Federal rules restrict any use of the information to criminally investigate or prosecute any alcohol or drug abuse patient.[facility] CenterIn the event this information is protected by the Federal Confidentiality of Alcohol and Drug Abuse Patient Records regulations: The Federal rules restrict any use of the information to criminally investigate or prosecute any alcohol or drug abuse patient.[facility] CenterIn the event this information is protected by the Federal Confidentiality of Alcohol and Drug Abuse Patient Records regulations: The Federal rules restrict any use of the information to criminally investigate or prosecute any alcohol or drug abuse patient.[facility] CenterIn the event this information is protected by the Federal Confidentiality of Alcohol and Drug Abuse Patient Records regulations: The Federal rules restrict any use of the information to criminally investigate or prosecute any alcohol or drug abuse patient.[facility] CenterIn the event this information is protected by the Federal Confidentiality of Alcohol and Drug Abuse Patient Records regulations: The Federal rules restrict any use of the information to criminally investigate or prosecute any alcohol or drug abuse patient.[facility] CenterIn the event this information is protected by the Federal Confidentiality of Alcohol and Drug Abuse Patient Records regulations: The Federal rules restrict any use of the information to criminally investigate or prosecute any alcohol or drug abuse patient.[facility] CenterIn the event this information is protected by the Federal Confidentiality of Alcohol and Drug Abuse Patient Records regulations: The Federal rules restrict any use of the information to criminally investigate or prosecute any alcohol or drug abuse patient.[facility] CenterIn the event this information is protected by the Federal Confidentiality of Alcohol and Drug Abuse Patient Records regulations: The Federal rules restrict any use of the information to criminally investigate or prosecute any alcohol or drug abuse patient.[facility] CenterIn the event this information is protected by the Federal Confidentiality of Alcohol and Drug Abuse Patient Records regulations: The Federal rules restrict any use of the information to criminally investigate or prosecute any alcohol or drug abuse patient.[facility] CenterIn the event this information is protected by the Federal Confidentiality of Alcohol and Drug Abuse Patient Records regulations: The Federal rules restrict any use of the information to criminally investigate or prosecute any alcohol or drug abuse patient.[facility] CenterIn the event this information is protected by the Federal Confidentiality of Alcohol and Drug Abuse Patient Records regulations: The Federal rules restrict any use of the information to criminally investigate or prosecute any alcohol or drug abuse patient.[facility] CenterIn the event this information is protected by the Federal Confidentiality of Alcohol and Drug Abuse Patient Records regulations: The Federal rules restrict any use of the information to criminally investigate or prosecute any alcohol or drug abuse patient.[facility] CenterIn the event this information is protected by the Federal Confidentiality of Alcohol and Drug Abuse Patient Records regulations: The Federal rules restrict any use of the information to criminally investigate or prosecute any alcohol or drug abuse patient.[facility] CenterIn the event this information is protected by the Federal Confidentiality of Alcohol and Drug Abuse Patient Records regulations: The Federal rules restrict any use of the information to criminally investigate or prosecute any alcohol or drug abuse patient.[facility] CenterIn the event this information is protected by the Federal Confidentiality of Alcohol and Drug Abuse Patient Records regulations: The Federal rules restrict any use of the information to criminally investigate or prosecute any alcohol or drug abuse patient.[facility] CenterIn the event this information is protected by the Federal Confidentiality of Alcohol and Drug Abuse Patient Records regulations: The Federal rules restrict any use of the information to criminally investigate or prosecute any alcohol or drug abuse patient.[facility] CenterIn the event this information is protected by the Federal Confidentiality of Alcohol and Drug Abuse Patient Records regulations: The Federal rules restrict any use of the information to criminally investigate or prosecute any alcohol or drug abuse patient.[facility] CenterIn the event this information is protected by the Federal Confidentiality of Alcohol and Drug Abuse Patient Records regulations: The Federal rules restrict any use of the information to criminally investigate or prosecute any alcohol or drug abuse patient.[facility] CenterIn the event this information is protected by the Federal Confidentiality of Alcohol and Drug Abuse Patient Records regulations: The Federal rules restrict any use of the information to criminally investigate or prosecute any alcohol or drug abuse patient.[facility] CenterIn the event this information is protected by the Federal Confidentiality of Alcohol and Drug Abuse Patient Records regulations: The Federal rules restrict any use of the information to criminally investigate or prosecute any alcohol or drug abuse patient.[facility] CenterIn the event this information is protected by the Federal Confidentiality of Alcohol and Drug Abuse Patient Records regulations: The Federal rules restrict any use of the information to criminally investigate or prosecute any alcohol or drug abuse patient.[facility] CenterIn the event this information is protected by the Federal Confidentiality of Alcohol and Drug Abuse Patient Records regulations: The Federal rules restrict any use of the information to criminally investigate or prosecute any alcohol or drug abuse patient.[facility] CenterIn the event this information is protected by the Federal Confidentiality of Alcohol and Drug Abuse Patient Records regulations: The Federal rules restrict any use of the information to criminally investigate or prosecute any alcohol or drug abuse patient.[facility] CenterIn the event this information is protected by the Federal Confidentiality of Alcohol and Drug Abuse Patient Records regulations: The Federal rules restrict any use of the information to criminally investigate or prosecute any alcohol or drug abuse patient.[facility] CenterIn the event this information is protected by the Federal Confidentiality of Alcohol and Drug Abuse Patient Records regulations: The Federal rules restrict any use of the information to criminally investigate or prosecute any alcohol or drug abuse patient.[facility] CenterIn the event this information is protected by the Federal Confidentiality of Alcohol and Drug Abuse Patient Records regulations: The Federal rules restrict any use of the information to criminally investigate or prosecute any alcohol or drug abuse patient.[facility] CenterIn the event this information is protected by the Federal Confidentiality of Alcohol and Drug Abuse Patient Records regulations: The Federal rules restrict any use of the information to criminally investigate or prosecute any alcohol or drug abuse patient.[facility] CenterIn the event this information is protected by the Federal Confidentiality of Alcohol and Drug Abuse Patient Records regulations: The Federal rules restrict any use of the information to criminally investigate or prosecute any alcohol or drug abuse patient.[facility] CenterIn the event this information is protected by the Federal Confidentiality of Alcohol and Drug Abuse Patient Records regulations: The Federal rules restrict any use of the information to criminally investigate or prosecute any alcohol or drug abuse patient.[facility] CenterIn the event this information is protected by the Federal Confidentiality of Alcohol and Drug Abuse Patient Records regulations: The Federal rules restrict any use of the information to criminally investigate or prosecute any alcohol or drug abuse patient.[facility] CenterIn the event this information is protected by the Federal Confidentiality of Alcohol and Drug Abuse Patient Records regulations: The Federal rules restrict any use of the information to criminally investigate or prosecute any alcohol or drug abuse patient.[facility] CenterIn the event this information is protected by the Federal Confidentiality of Alcohol and Drug Abuse Patient Records regulations: The Federal rules restrict any use of the information to criminally investigate or prosecute any alcohol or drug abuse patient.[facility] CenterIn the event this information is protected by the Federal Confidentiality of Alcohol and Drug Abuse Patient Records regulations: The Federal rules restrict any use of the information to criminally investigate or prosecute any alcohol or drug abuse patient.[facility]In the event this information is protected by the Federal Confidentiality of Alcohol and Drug Abuse Patient Records regulations: The Federal rules restrict any use of the information to criminally investigate or prosecute any alcohol or drug abuse patient.[facility] CenterIn the event this information is protected by the Federal Confidentiality of Alcohol and Drug Abuse Patient Records regulations: The Federal rules restrict any use of the information to criminally investigate or prosecute any alcohol or drug abuse patient.[facility] CenterIn the event this information is protected by the Federal Confidentiality of Alcohol and Drug Abuse Patient Records regulations: The Federal rules restrict any use of the information to criminally investigate or prosecute any alcohol or drug abuse patient.[facility] CenterIn the event this information is protected by the Federal Confidentiality of Alcohol and Drug Abuse Patient Records regulations: The Federal rules restrict any use of the information to criminally investigate or prosecute any alcohol or drug abuse patient.[facility] CenterIn the event this information is protected by the Federal Confidentiality of Alcohol and Drug Abuse Patient Records regulations: The Federal rules restrict any use of the information to criminally investigate or prosecute any alcohol or drug abuse patient.[facility] CenterIn the event this information is protected by the Federal Confidentiality of Alcohol and Drug Abuse Patient Records regulations: The Federal rules restrict any use of the information to criminally investigate or prosecute any alcohol or drug abuse patient.[facility] CenterIn the event this information is protected by the Federal Confidentiality of Alcohol and Drug Abuse Patient Records regulations: The Federal rules restrict any use of the information to criminally investigate or prosecute any alcohol or drug abuse patient.[facility] CenterIn the event this information is protected by the Federal Confidentiality of Alcohol and Drug Abuse Patient Records regulations: The Federal rules restrict any use of the information to criminally investigate or prosecute any alcohol or drug abuse patient.[facility] CenterIn the event this information is protected by the Federal Confidentiality of Alcohol and Drug Abuse Patient Records regulations: The Federal rules restrict any use of the information to criminally investigate or prosecute any alcohol or drug abuse patient.[facility] CenterIn the event this information is protected by the Federal Confidentiality of Alcohol and Drug Abuse Patient Records regulations: The Federal rules restrict any use of the information to criminally investigate or prosecute any alcohol or drug abuse patient.[facility] CenterIn the event this information is protected by the Federal Confidentiality of Alcohol and Drug Abuse Patient Records regulations: The Federal rules restrict any use of the information to criminally investigate or prosecute any alcohol or drug abuse patient.[facility] CenterIn the event this information is protected by the Federal Confidentiality of Alcohol and Drug Abuse Patient Records regulations: The Federal rules restrict any use of the information to criminally investigate or prosecute any alcohol or drug abuse patient.[facility] CenterIn the event this information is protected by the Federal Confidentiality of Alcohol and Drug Abuse Patient Records regulations: The Federal rules restrict any use of the information to criminally investigate or prosecute any alcohol or drug abuse patient.[facility] CenterIn the event this information is protected by the Federal Confidentiality of Alcohol and Drug Abuse Patient Records regulations: The Federal rules restrict any use of the information to criminally investigate or prosecute any alcohol or drug abuse patient.[facility] CenterIn the event this information is protected by the Federal Confidentiality of Alcohol and Drug Abuse Patient Records regulations: The Federal rules restrict any use of the information to criminally investigate or prosecute any alcohol or drug abuse patient.[facility] CenterIn the event this information is protected by the Federal Confidentiality of Alcohol and Drug Abuse Patient Records regulations: The Federal rules restrict any use of the information to criminally investigate or prosecute any alcohol or drug abuse patient.[facility] CenterIn the event this information is protected by the Federal Confidentiality of Alcohol and Drug Abuse Patient Records regulations: The Federal rules restrict any use of the information to criminally investigate or prosecute any alcohol or drug abuse patient.[facility] CenterIn the event this information is protected by the Federal Confidentiality of Alcohol and Drug Abuse Patient Records regulations: The Federal rules restrict any use of the information to criminally investigate or prosecute any alcohol or drug abuse patient.[facility] CenterIn the event this information is protected by the Federal Confidentiality of Alcohol and Drug Abuse Patient Records regulations: The Federal rules restrict any use of the information to criminally investigate or prosecute any alcohol or drug abuse patient.[facility] CenterIn the event this information is protected by the Federal Confidentiality of Alcohol and Drug Abuse Patient Records regulations: The Federal rules restrict any use of the information to criminally investigate or prosecute any alcohol or drug abuse patient.[facility] CenterIn the event this information is protected by the Federal Confidentiality of Alcohol and Drug Abuse Patient Records regulations: The Federal rules restrict any use of the information to criminally investigate or prosecute any alcohol or drug abuse patient.[facility] CenterIn the event this information is protected by the Federal Confidentiality of Alcohol and Drug Abuse Patient Records regulations: The Federal rules restrict any use of the information to criminally investigate or prosecute any alcohol or drug abuse patient.[facility] CenterIn the event this information is protected by the Federal Confidentiality of Alcohol and Drug Abuse Patient Records regulations: The Federal rules restrict any use of the information to criminally investigate or prosecute any alcohol or drug abuse patient.[facility] CenterIn the event this information is protected by the Federal Confidentiality of Alcohol and Drug Abuse Patient Records regulations: The Federal rules restrict any use of the information to criminally investigate or prosecute any alcohol or drug abuse patient.[facility] CenterIn the event this information is protected by the Federal Confidentiality of Alcohol and Drug Abuse Patient Records regulations: The Federal rules restrict any use of the information to criminally investigate or prosecute any alcohol or drug abuse patient.[facility] CenterIn the event this information is protected by the Federal Confidentiality of Alcohol and Drug Abuse Patient Records regulations: The Federal rules restrict any use of the information to criminally investigate or prosecute any alcohol or drug abuse patient.[facility] CenterIn the event this information is protected by the Federal Confidentiality of Alcohol and Drug Abuse Patient Records regulations: The Federal rules restrict any use of the information to criminally investigate or prosecute any alcohol or drug abuse patient.[facility] CenterIn the event this information is protected by the Federal Confidentiality of Alcohol and Drug Abuse Patient Records regulations: The Federal rules restrict any use of the information to criminally investigate or prosecute any alcohol or drug abuse patient.[facility] CenterIn the event this information is protected by the Federal Confidentiality of Alcohol and Drug Abuse Patient Records regulations: The Federal rules restrict any use of the information to criminally investigate or prosecute any alcohol or drug abuse patient.[facility] CenterIn the event this information is protected by the Federal Confidentiality of Alcohol and Drug Abuse Patient Records regulations: The Federal rules restrict any use of the information to criminally investigate or prosecute any alcohol or drug abuse patient.[facility] CenterIn the event this information is protected by the Federal Confidentiality of Alcohol and Drug Abuse Patient Records regulations: The Federal rules restrict any use of the information to criminally investigate or prosecute any alcohol or drug abuse patient.[facility] CenterIn the event this information is protected by the Federal Confidentiality of Alcohol and Drug Abuse Patient Records regulations: The Federal rules restrict any use of the information to criminally investigate or prosecute any alcohol or drug abuse patient.[facility] CenterIn the event this information is protected by the Federal Confidentiality of Alcohol and Drug Abuse Patient Records regulations: The Federal rules restrict any use of the information to criminally investigate or prosecute any alcohol or drug abuse patient.[facility] CenterIn the event this information is protected by the Federal Confidentiality of Alcohol and Drug Abuse Patient Records regulations: The Federal rules restrict any use of the information to criminally investigate or prosecute any alcohol or drug abuse patient.[facility] CenterIn the event this information is protected by the Federal Confidentiality of Alcohol and Drug Abuse Patient Records regulations: The Federal rules restrict any use of the information to criminally investigate or prosecute any alcohol or drug abuse patient.[facility] CenterIn the event this information is protected by the Federal Confidentiality of Alcohol and Drug Abuse Patient Records regulations: The Federal rules restrict any use of the information to criminally investigate or prosecute any alcohol or drug abuse patient.[facility] CenterIn the event this information is protected by the Federal Confidentiality of Alcohol and Drug Abuse Patient Records regulations: The Federal rules restrict any use of the information to criminally investigate or prosecute any alcohol or drug abuse patient.[facility] CenterIn the event this information is protected by the Federal Confidentiality of Alcohol and Drug Abuse Patient Records regulations: The Federal rules restrict any use of the information to criminally investigate or prosecute any alcohol or drug abuse patient.[facility] CenterIn the event this information is protected by the Federal Confidentiality of Alcohol and Drug Abuse Patient Records regulations: The Federal rules restrict any use of the information to criminally investigate or prosecute any alcohol or drug abuse patient.[facility] CenterIn the event this information is protected by the Federal Confidentiality of Alcohol and Drug Abuse Patient Records regulations: The Federal rules restrict any use of the information to criminally investigate or prosecute any alcohol or drug abuse patient.[facility] CenterIn the event this information is protected by the Federal Confidentiality of Alcohol and Drug Abuse Patient Records regulations: The Federal rules restrict any use of the information to criminally investigate or prosecute any alcohol or drug abuse patient.[facility] CenterIn the event this information is protected by the Federal Confidentiality of Alcohol and Drug Abuse Patient Records regulations: The Federal rules restrict any use of the information to criminally investigate or prosecute any alcohol or drug abuse patient.[facility] CenterIn the event this information is protected by the Federal Confidentiality of Alcohol and Drug Abuse Patient Records regulations: The Federal rules restrict any use of the information to criminally investigate or prosecute any alcohol or drug abuse patient.[facility] CenterIn the event this information is protected by the Federal Confidentiality of Alcohol and Drug Abuse Patient Records regulations: The Federal rules restrict any use of the information to criminally investigate or prosecute any alcohol or drug abuse patient.[facility] CenterIn the event this information is protected by the Federal Confidentiality of Alcohol and Drug Abuse Patient Records regulations: The Federal rules restrict any use of the information to criminally investigate or prosecute any alcohol or drug abuse patient.[facility] CenterIn the event this information is protected by the Federal Confidentiality of Alcohol and Drug Abuse Patient Records regulations: The Federal rules restrict any use of the information to criminally investigate or prosecute any alcohol or drug abuse patient.[facility] FOR RECORDS PERTAINING TO PATIENTS [...] BE BASED ON THE PRIMARY CLINICAL RECORDS. [facility] [employer] provides no warranty or guarantee of the accuracy or completeness of information in this document.
[2025-04-19 16:05] LABS: Hematocrit 33.8 % (42.0-54.0); Hemoglobin 10.6 g/dL (14.0-18.0); Immature Granulocytes Abs Auto 0.07 10^3/uL (0.00-0.03); Immature Granulocytes Pct Auto 0.9 % (0.0-0.5); Lymphocytes Absolute Auto 1.0 10^3/uL (1.2-3.8); Mean Corpuscular HGB Conc 31.4 g/dL (29.9-35.2); Mean Corpuscular Hemoglobin 30.3 pg (25.9-34.0); Mean Corpuscular Volume 96.6 fL (80.0-94.0); Platelet Count 319 10^3/uL (150-450); Red Blood Count 3.50 10^6/uL (4.70-6.10); White Blood Count 8.1 10^3/uL (4.0-11.0)
[2025-04-19 16:24] LABS: Alanine Aminotransferase 21 U/L (16-63); Albumin Globulin Ratio 0.8; Albumin Level 3.3 g/dL (3.4-5.0); Alkaline Phosphatase 102 U/L (46-116); Anion Gap 11.3; Aspartate Amino Transferase 9 U/L (15-37); Blood Urea Nitrogen 29.0 mg/dL (7.0-18.0); Calcium 8.9 mg/dL (8.5-10.1); Carbon Dioxide 27.7 mmol/L (21.0-32.0); Chloride 99 mmol/L (98-107); Estimated GFR (African America 36 (>=60 mL/min/1.73m^2); Estimated GFR (Non-African Ame 29 (>=60 mL/min/1.73m^2); Globulin 4.1 g/dL; Glucose 89 mg/dL (74-106); Potassium 5.0 mmol/L (3.5-5.1); Sodium 133 mmol/L (136-145); Total Protein 7.4 g/dL (6.4-8.2)
[2025-04-19 16:47] LABS: Ferritin 47.0 ng/mL (26.0-388.0); Folate 31.50 ng/mL (8.60-58.90)
[2025-04-20 04:07] LABS: Vitamin B12 892 pg/mL (232-1245)
== END 2025-04-19 15:37 | disposition home or self-care (01) ==
LOC: LAB 15:41
PROVIDERS: PCP Internal Medicine; Visit Provider Internal Medicine
DX: L03.116 Cellulitis of left lower limb (principal); R60.1 Generalized edema; D53.0 Protein deficiency anemia; R53.83 Other fatigue
CPT/HCPCS: 36415; 80053; 82607; 82728; 82746; 85025; 86140

== ENCOUNTER 2025-04-26 11:44 | Outpatient (OUT) | payer MEDICARE, SELFPAY ==
--- OUTSIDE RECORDS SUMMARY | 2025-04-14 15:15 | XMS_ITS | Encounter Summary ---
Author Organization [facility] Healthcare Address [address] [facility] [place] [address] Care Team Providers Care Legal Research Analyst Name Role Phone KelechiDawit DO Primary Care Provider [phone] Reason for Visit * ReasonCommentsNail care/Wound checkSholli Harris is a 75 y.o. male. Established patient relates he was in [facility] for 6 days 04/02/2025,Cellulitis left foot to groin. Presents today for Nail care and wound fuv of the left 2nd toe. Patient states Doxycycline and Augmentin until Saturday. Patient has been using mupirocin ointment and band- aid. Encounter Details DateTypeDepartmentCare Team (Latest Contact Info)Fgehtsmucuq42/29/2025 4:15 PM EDTProcedure Visit [facility] [address] [place] [phone] Uzair Lubin, DPReinaldo [address] [place], [place] [phone] Dermatophytosis of nail (Primary Dx); Dystrophic nail; Pain around toenail, right foot; Pain around toenail, left foot Social History Tobacco UseTypesPacks/DayYears UsedDateSmoking Tobacco: NeverSmokeless Tobacco: NeverSex and Gender InformationValueDate RecordedSex Assigned at BirthNot on fileLegal AqkWdwj2708/29/2022 7:25 PM EDTGender IdentityNot on fileSexual OrientationNot on filedocumented as of this encounter Last Filed Vital Signs Vital SignReadingTime TakenCommentsBlood Pressure--Pulse--Temperature-- Respiratory Rate--Oxygen Saturation--Inhaled Oxygen Concentration--Kydmib13.3 kg (188 lb)04/14/2025 4:36 PM BSJUnbzje130.9 cm (6')04/14/2025 4:36 PM EDTBody Mass Index25. 4:36 PM EDTdocumented in this encounter Patient Instructions * Patient Instructions* Uzair Lubin DPM - 04/14/2025 4:15 PM EDT Wound care measures as noted documented in this encounter Progress Notes * Uzair Lubin DPM - 04/14/2025 4:15 PM EDT Images from the original note were not included. Subjective Patient ID: Willie Harris is a 75 y.o. male who presents for Nail care/Wound check (Willie Harris is a 75 y.o. male. Established patient relates he was in [facility] for 6 days 04/02/2025,Cellulitis left foot to groin. Presents today for Nail care and wound fuv of the left 2nd toe. Patient states Doxycycline and Augmentin until Saturday. Patient has been using mupirocin ointment and band- aid. ). HPI Presents today for nail care measures. Identifies multiple digits with thickened, deformed and discolored toenails. Problematic/symptomatic over the past month or so. Describes pressure discomfort with footwear; as well as catching and snagging on clothing, bed sheets etc.. Denies bleeding or drainage. Self care measures are difficult, ineffective and not practical. Family members unable to provide effective care. Patient recently hospitalized for lymphangitis of the left lower extremity; has been discharged on Augmentin and doxycycline therapy with the condition effectively resolving. His spouse continues to provide daily care measures. Minimal drainage is noted. Wound Check Medications Current Outpatient Medications: cephalexin (Keflex) 500 MG capsule, Three times daily, Disp: , Rfl: doxycycline (Adoxa) 100 MG tablet, Take 100 mg by mouth in the morning and 100 mg before bedtime., Disp: , Rfl: allopurinol (Zyloprim) 300 MG tablet, Take 300 mg by mouth at bedtime, Disp: , Rfl: amoxicillin-clavulanate (Augmentin) 875-125 MG tablet, Take 1 tablet by mouth in the morning and 1 tablet before bedtime., Disp: , Rfl: Ascorbic Acid (vitamin C) [...] areas are clean, dry, non-inflamed. Toenail pathology: All digits: Relative sparing 3rd digit right foot: Toenail dystrophy, hypertrophy, thickening, discoloration, clubbing, crumbly texture, subtotal detachment, periungual hyperkeratosis, without drainage. Ulceration: 2nd digit left foot: Major stage 0 wound; reflecting favorable secondary intention progress towards healing. Loosely adhered eschar tissue. Surrounding rim of slightly raised hyperkeratotic tissue. Unremarkable for active bleeding or drainage. Unremarkable for erythema, warmth, swelling, soft tissue fluctuance or streaking of the digit. Post-debridement measurements: 03/25/2025: 0.5 x 0.2 x [...] the 1st MTP joint. Assessment/Plan Major stage 0 wound 2nd digit left foot. Resolving lymphangitis left lower extremity. Symptomatic onychodystrophy/mycosis multiple digits. Plan: Garrard agreement for conservative and palliative nail care measures. Patient expresses no interest in oral therapy; nor is it recommended. Complete Augmentin and doxycycline therapy as prescribed. Continue daily care measures 2nd digit left foot: Cleansing followed by mupirocin 2%. Band-Aid or gauze dressing as necessary. Offloading: Darco shoe left. Follow up: 2 weeks, sooner if any problems arise. Procedure: Toenail debridement: Aseptic technique: Hand and power instrumentation: Onychodebridement in lengthand thickness, with curettage of any cryptotic margins, all periungual debris; providing effective symptom and pressure relief; reducing shoe and digital trauma. This note was created with the assistance [...] Plan of Treatment DateTypeDepartmentCare Team (Latest Contact Info)Tktxvwuzlmy12/11/2025 1:45 PM ESTOffice Visit [facility] [address] [place] [phone] Uzair Lubin DPM [address] [place] [address] 08/16/2025 1:30 PM ESTOffice Visit [facility] [address] [place] [address] Arley Hamilton, [address] [place] [address] 08/31/2025 1:05 PM EDTOffice Visit [facility] [address] [place] [address] Bianca Bynum MD [address] [place] [address] documented as of this encounter Visit Diagnoses Diagnosis Dermatophytosis of nail- Primary Dystrophic nail Other specified disease of nail Pain around toenail, right foot Pain around toenail, left foot documented in this encounter Care Teams Team MemberRelationshipSpecialtyStart DateEnd Date Dawit Lorenz DO [address] [place] [phone] PCP - GeneralInternal Medicine03/12/25documented as of this encounter
--- OUTSIDE RECORDS SUMMARY | 2025-04-19 13:00 | XMS_ITS | Continuity of Care Document ---
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 Name Role Phone Dawit Lorenz DO Primary Care Provider Yehuda Boggs DO Attending Provider Bijal Kaur [...] Tiffanieluann Hoffman Dominique ProviderActiveStart: April 06, 2025 Visit Care Team Team Status: Active Member Role/Relationship Status Dates Dawit Lorenz DO Primary Care Provider Active Start: April 07, 2025 Tiffanieluann Hoffman Dominique ProviderActiveStart: April 07, 2025 Visit Care Team Team Status: Active Member Role/Relationship Status Dates Dawit Lorenz DO Primary Care Provider Active Start: April 08, 2025 Cynthia Gamez ProviderActiveStart: April 08, 2025 Visit Care Team Team Status: Inactive Member Role/Relationship Status Dates Dawit Lorenz DO Primary Care Provider Active Start: April 09, 2025 End: April 09Bernardo Meridajeri ProviderActiveStart: April 09, 2025 End: April 09, 2025 Visit Care Team Team Status: Active Member Role/Relationship Status Dates Dawit Lorenz DO Primary Care Provider Active Start: April 12, 2025 Bernardo Combsjeri ProviderActiveStart: April 12, 2025 Patient Care Team Team Status: Inactive Member Role/Relationship Status Dates Dawit Lorenz DO Primary Care Provider Active Start: April 19, 2025 End: April 19Bernardo Meridajeri ProviderActiveStart: April 19, 2025 End: April 19, 2025 Chief Complaint and Reason for Visit Chief Complaint Admit Date Amb Documentation April 08, 2025 9 :50am TBH f/u April 09, 2025 9 :31am Office Visit April 19, 2025 4 :03pm Reason for Visit Admit Date Anasarca April [...] tramadol Allergy Unknown Hallucinating April 09, 2025 8:38am Yes Active Social History Smoking Status Status [...] omments Viral respiratory illness July 14, 2024 5:24pm Unknow n Active Primary insomniaJune 2023 8:52amUnknownActiveCerumen impactionSeptember 2023 11:56amUnknownActiveAnemiaJune 2024 6:15pmUnknownActive CellulitisOctober 2024 9:51amUnknownActiveEsophageal varicesOctober 2024 9:51amUnknownActiveCirrhosisOctober 2024 9:51amUnknownActiveChronic kidney diseaseJune 2024 6:15pmUnknownActiveLymphocytic colitisMarch 2024 9:59amUnknownActivePericardial effusionMarch 2023 9:43pmUnknownActive Pleural effusionSeptember 2023 11:57amUnknownActivePrimary hypertension August 13, 2023 11:20amUnknownActiveAnasarcaOctober 2024 9:51amUnknown ActiveSubacute coughFebruary 2023 11:19amUnknownActiveNausea & vomiting August 13, 2023 5:50pmUnknownActiveHypomagnesemiaJune 2024 6:16pm UnknownActiveInactive/Resolved Problems Problem Diagnosis/Recorded Date Onset Date Status C omments Dysphagia October 21, 2020 9:29am Unknown Resolved Prob dash List clean-up per request of Phys. EHR Cmte Rectal bleed October 21, 2020 9:30am Unknown Resolved Pr oblem List clean-up per request of Phys. EHR Cmte Medications Medication Status Dose Units Route Directions Qty Days Refills S tart Date Stop Date End Date Reason(s) Instructions Adherence Atorvastatin 10 mg tablet Discontinued 0 .ROUTE.FNGZQBA943Tligfiwx 2023 7:58pmFebruary 2024 3:42pmTAKE 1 TABLET DAILY IN THE EVENINGFluticasone Propion-Salmeterol 115-21 mcg/actuation HFA aerosol foylnisCiqwukxqlohs6SORPRYPXFSQIHAFvdfh 12 xmtth66323Akeesswn 2023 12:00amFebruary 2023 9:58amFluticasone Propion-Salmeterol 115-21 mcg/actuation HFA aerosol pipvndeThyslmhklfnd6CTNGQSLYMTSRRHOhhuq 12 newmu75041 August 07, 2023 9:58amFebruary 2023 9:43amFluticasone Propion- Salmeterol 100-50 mcg/dose blister with deviceDiscontinued0.ROUTE.QLIGUKY609 August 08, 2023 9:43amFebruary 2023 11:21amINHALE 1 DOSE BY MOUTH EVERY 12 HOURSAmoxicillin-Pot Clavulanate 875-125 mg lckzamGfmwkzrgogmw4FEOZK Every 12 dbtut2535Ahsom 2023 12:00amOctober 2024 8:00amPrednisone 50 mg kpiscqGrwwqt40RBTNZbjyg580Byo 22nd, 2024 11:00pmUnknownZolpidem 5 mg tablet Fuyftewxsbmd2LETbtzr at bedtime as needed for upiurcuf3098Mfsy2023 11:00pmJune 2023 4:33pmPrimary insomnia Primary insomnia1-2 orally daily at bedtime PRN;Zolpidem 5 mg rcmgcnJgqcsn1QG Daily at bedtime as needed for vwdbnhul7954Vabd2023 4:32pmPrimary insomnia Primary insomnia1-2 orally daily at bedtime PRN;UnknownOmeprazole 20 mg capsule,delayed release(DR/EC)Mpxbcoepjfax29EQLJHhnve82401Mglj 27th, 2024 8:40am December 12, 2023 4:53pmOmeprazole 20 mg capsule,delayed release(DR/EC) Discontinued0.ROUTE.ISBGQPN026Xlui2023 4:53pmFebruary 2024 9:21pm TAKE 1 CAPSULE DAILY ON AN EMPTY STOMACH, FOLLOWED IN 30 MINUTES BY BREAKFAST Allopurinol 300 mg tabletDiscontinued0.ROUTE.MNUONOG215Iiug 2023 11:30am January 24, 2024 12:49pmTAKE 1 TABLET DAILYAllopurinol 300 mg tabletDiscontinued 222NBPQPjhhf96508Mtlyex 2023 12:48pmJuly 2024 7:35amAzithromycin 250 mg pzldweNnrzukhcidje245LQGNRq Ngvmvrqa162Hlicbhzhf 24th, 2024 11:00pmSeptember 2023 11:53amAzithromycin 250 mg gcrsaoMxnjnlgrdtzc110GMPGXh Wlffefqv269 March 11, 2024 11:53amJanuary 2024 5:11pmOmeprazole 40 mg capsule,delayed release(DR/EC)Ujmriobgfvur72ADZWSdrpm95848Lrytktei 2024 9:20pmFebruary 2024 9:20pmPantoprazole 40 mg tablet,delayed release (DR/EC) Tbrwrwdtkrvz55MIMVUuicm01867Bvzlaqwr 2024 12:00amJune 2024 4:40pm Atorvastatin 10 mg tabletActive0.ROUTE.GFBQXPV471Jzyfiuks 2024 3:42pmOn Hold: None TAKE 1 TABLET DAILY IN THE EVENINGUnknownAzithromycin 250 mg tabletDiscontinued 250MGPOAs Pghmcoys245Vksjk 2024 1:30pmOct2024 8:00amCephalexin 500 mg augakekMctkkqriicbb873OEJQNisrh times lccob8899Mvi 2024 11:00pm April 01, 2025 8:00amMupirocin 2 % idzaqferTumrclrvqxpl3NMZTXKMTSCNJUYfgsh gjecp40386Qtik 2024 11:00pmJuly 2024 4:58pmFamotidine 20 mg tablet Dsarsegqamcu04QGQYOebpt encjs83388Mpvp 2024 11:00pmSeptember 2024 3:24pmSpironolactone 25 mg rfkxdlWfurgwzxxegj67MSPZRhwya46375Hjrl 2024 11:00pmJuly 2024 1:45pmMupirocin 2 % vydeivliJleckttzzgxg8BARJRDTPJETSF Twice lgwtj96585Iflp 2024 4:57pmSeptember 2024 4:41pmAllopurinol 300 mg sfhecsSdgsej172BVPAJimrm81598Nwlv 2024 7:35amUnknownSpironolactone 25 mg gppeyhAjcdpiqrjbjq42HBFYKoqcg05524Rcyt 2024 1:45pmJuly 2024 3:02pmSpironolactone 25 mg mlfomrExjszzxcqguk70PUJUXpuuo65853Cybi 2024 3:02pmAugust 2024 12:06pmSpironolactone 25 mg nxhdftAbggggojnuxt87QBPDXysiq 43530Eyrajl 2024 12:05pmOctober 2024 4:06pmPantoprazole 40 mg tablet,delayed release (DR/EC)Wbxwwaaclnai10RPWXErauf08900Rbtnydzdu 2024 11:00pmSeptember 2024 3:26pmFamotidine 20 mg wwqtvzXyekvbbfxyag60PSBKZxive at jybjdtk44774Eudrwbein 2024 3:23pmSeptember 2024 3:26pmFamotidine 20 mg hbuyunRduaqs21FASDCuejt at oxlhucz02063Zvixriakg 2024 3:24pmUnknown Pantoprazole 40 mg tablet,delayed release (DR/EC)Favgps38GLPMGnduj04451Vjrinzcav 2024 3:25pmUnknownMirabegron (Myrbetriq) 50 mg tablet extended release 24 auVptwwp31LDBDOfjmb47766Dausxvpxh 2024 11:00pmUnknownAmoxicillin-Pot Clavulanate 875-125 mg xnswcbFfeuqqcsmbwy9QSBTYFdxyq 12 rpnlh58751Hbbpljybm 2024 11:00pmOctober 2024 8:00amMupirocin 2 % yaeojjmkToflsb8YDFZZC TOPICALTwice sdwjl74883Mhkuiwchp 2024 4:41pmUnknownCephalexin 500 mg piadsyoIfrnwu906LCAJMfmqx times ytvhk4237Lxdljud 16th, 2025 8:00amUnknown Torsemide 20 mg gsupadQwuzrr58ZQZTCswfe slfngyc48640Dqzloyfj 1st, 2025 11:00pm UnknownAtorvastatin 10 mg zlwhqgOnnsujiyxddz05WDGDYsmvxUvs 2020 11:00pm August 05, 2023 7:58pmRanitidine Hcl 300 mg JbsxouBdrrhytnxabf561WCMEPmpci October 20, 2020 11:00pmFebruary 2023 11:21amTamsulosin 0.4 mg Capsule Discontinued0.4MGPODailyMay 2020 11:00pmJune 2024 4:42pmOmeprazole 20 mg capsule,delayed release(DR/EC)Mdcqvaqglbqi02XMOTAflafSvv 2020 11:00pm December 12, 2023 8:40amAllopurinol 300 mg zcbgzmKtvlsemjhmdf733OFPUJkvkyFlq 2020 11:00pmJuly 2023 11:30amBenzonatate 100 mg ohxqeewFivsch995NHZBHatxe times dailyFebruary 2023 12:00amUnknownCodeine-Guaifenesin 10-100 mg/5 mL hijtrgXkhvpz75TINTReees 6 hours as needed for coughFebruary 2023 12:00am UnknownLosartan 25 mg ppjrxsUvdklbyscapz49AFQAKrnztDkuenihw 2023 12:00am November 24, 2024 4:40pmMeloxicam 15 mg htgwbkCznyzqauxgww64EDILAutfvPxkzmrjo 2023 12:00amJun2024 4:40pmOmega-3 Fatty Acids 500 mg capsuleActive 500MGPODailyFebruary 2023 12:00amUnknownPrednisone 10 mg tablet Soqjhztxfvqn83FNKOMs Ldwbrxsl428Bhjmgwky 2023 12:00amFebruary 2023 4:26pm1 tab tid w/ food x 3 days, then bid w/ food x 3 days, than qd w/ food x 3 daysPrednisone 10 mg gkaqhxVjhzyn10SEMTGr Auilarss1236Axticmyi 2023 4:25pm 1 tab tid w/ food x 3 days, then bid w/ food x 3 days, than qd w/ food x 3 days UnknownAzithromycin 250 mg nictlnIuvvvrjsxivl704OTPJAr Edmuxpbz329Gpnpqli 2024 5:10pmMarch 2024 1:30pmOndansetron 4 mg tablet,fejihotdvneupiWzymti8ZO POEvery 8 hours as needed for nausea and bjparbfy88096Qqcmeys 2024 12:00am UnknownSpironolactone 100 mg wfozxrUyjnzl911HDOKGwcxy12856Xykwwze 2024 4:05pmUnknown Immunizations Immunization Event Date Not Given Reason Dose Number 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 Vaccine, 23 valentAugust 2017Zoster Vaccine Recombinant, AdjuvantedMarch 2018Tetanus, Diphtheria adult, 5 Lf pres free absDeceer 2017Tetanus, Diphtheria adult, 5 Lf pres free absMar 2018 Relevant Diagnostic Tests and/or Laboratory Data Laboratory Results Test Collection Date/Time Result Date/Time Result Interpretation Reference Range Result Comment Performing Site Lactic Acid Level April 02, 2025 8:44am April 022024 8:44am 1.8 mmol/L 0.4-2.0Basophils # (Auto)April 02, 2025 8:44amOctober 2024 8:44am0.0 10 3/uL0.0-0.1Albumin/[facility] 20[facility] 8:44amOctober 2024 8:44am0.7Anion GapMaruofl [facility] 2024 8:44amOctober 2024 8:44am15.2Urine Culture ReflexedOctober 2024 9:43pmNOC-Reactive Protein, Quantitative April 03, 2025 5:05amOctober 2024 5:05am22.38 mg/dLAbove high normal <=0.50Absolute Basophils (Manual)April 03, 2025 5:05amOctober 2024 5:05am0.19 10 3/uLAbove high normal0.00-0.10HematocritOctober 2024 5:05am 30.8 %Below low .0-54.0Anion GapOctober 2024 5:05amOctober 2024 5:05am16.3C-Reactive Protein, QuantitativeOctober 2024 5:15amOctober 2024 5:15am16.57 mg/dLAbove high normal<=0.50Anion GapOctober 2024 5:15amOctober 2024 5:15am14.6Basophils # (Auto)April 04, 2025 5:15am April 04, 2025 5:15am0.0 10 3/uL0.0-0.1C-Reactive Protein, Quantitative April 05, 2025 4:25amOctober 2024 4:25am9.48 mg/dLAbove high normal <=0.50Anion GapOctober 2024 4:25amOctober 2024 4:25am13.3Hematocrit April 05, 2025 4:25amOctober 2024 4:25am29.1 %Below low normal 42.0-54.0C-Reactive Protein, QuantitativeOctober 2024 4:06amOctober 2024 4:06am6.70 mg/dLAbove high normal<=0.50Magnesium LevelOctober 2024 4:06amOctober 2024 4:06am2.2 mg/dL1.8-2.4Phosphorus LevelOctober 2024 4:06amOctober 2024 4:06am3.9 mg/dL2.6-4.7Anion GapOctober 2024 4:06amOctober 2024 4:06am14.1Basophils # (Auto)April 06, 2025 4:06am April 06, 2025 4:06am0.0 10 3/uL0.0-0.1Magnesium LevelOctober 2024 4:17amOctober 2024 4:17am2.2 mg/dL1.8-2.4Anion GapOctober 2024 4:17amOctober 2024 4:17am12.0Basophils # (Auto)April 07, 2025 4:17am April 07, 2025 4:17am0.0 10 3/uL0.0-0.1Magnesium LevelOctober 2024 8:53amOctober 2024 8:53am1.7 mg/dLBelow low normal1.8-2.4Anion GapOctober 2024 8:53amOctober 2024 8:53am13.3Basophils # (Auto)April 12, 2025 8:53amOctober 2024 8:53am0.0 10 3/uL0.0-0.1FolateNov2024 3:50pmNovember 2024 3:50pm31.50 ng/mL8.60-58.90FerritinNov2024 3:50pmNov2024 3:50pm47.0 ng/mL26.0-388.0C-Reactive Protein, QuantitativeNov2024 3:50pmNovember 2024 3:50pm2.29 mg/dLAbove high normal<=0.50Anion GapNov2024 3:50pmNov2024 3:50pm11.3 Basophils # (Auto)April 19, 2025 3:50pmNovember 2024 3:50pm0.1 10 3/uL 0.0-0.1Basophils (%) (Auto)April 02, 2025 8:44amOctober 2024 8:44am0.2 %0.2-2.0AlbuminOctober 2024 8:44amOctober 2024 8:44am3.1 g/dLBelow low normal3.4-5.0BUN/Creatinine RatioOctober 2024 8:44amOctober 2024 8:44am17.8Urine Other CastsOctober 2024 9:43pmSEEN #/LPFAbnormal (applies to non-numeric results)NONE SEENBasophils %April 03, 2025 5:05amOctober 2024 5:05am2.0 %0.2-2.0HemoglobinOct2024 5:05am9.6 g/dLBelow low fcqycz09.0-18.0BUN/Creatinine RatioOct2024 5:05amOctober 2024 5:05am23.5Albumin/Globulin RatioOct2024 5:15amOctober 2024 5:15am0.6Basophils (%) (Auto)April 04, 2025 5:15amOctober 2024 5:15am 0.2 %0.2-2.0BUN/Creatinine RatioOct2024 4:25amOctober 2024 4:25am21.2HemoglobinOct2024 4:25amOctober 2024 4:25am9.4 g/dL Below low sbjgwi92.0-18.0Albumin/Globulin RatioOct2024 4:06amOctober 2024 4:06am0.6Basophils (%) (Auto)April 06, 2025 4:06amOctober 2024 4:06am0.5 %0.2-2.0Albumin/Globulin RatioOct2024 4:17amOctober 2024 4:17am0.7Basophils (%) (Auto)April 07, 2025 4:17amOctober 2024 4:17am0.5 %0.2-2.0Albumin/Globulin RatioOct2024 8:53amOctober 2024 8:53am0.7Basophils (%) (Auto)April 12, 2025 8:53amOctober 2024 8:53am0.5 %0.2-2.0Albumin/Globulin RatioNovemb2024 3:50pmNovember 2024 3:50pm0.8Basophils (%) (Auto)April 19, 2025 3:50pmNovember 2024 3:50pm0.6 %0.2-2.0Eosinophils # (Auto)April 02, 2025 8:44amOctober 2024 8:44am0.0 10 3/uL0.0-0.7Alkaline PhosphataseOct2024 8:44am April 02, 2025 8:36tb202 U/Q32-557Dwaik Urea NitrogenOctober 2024 8:44amOctober 2024 8:44am31.0 mg/dLAbove high normal7.0-18.0Urine Other CrystalsOctober 2024 9:43pmNone Seen #/HPFNone SeenEosinophils # (Manual) April 03, 2025 5:05amOctober 2024 5:05am0.00 10 3/uL0.00-0.70Mean Corpuscular HemoglobinOctober 2024 5:05am30.2 pg25.9-34.0Blood Urea NitrogenOctober 2024 5:05amOctober 2024 5:05am31.0 mg/dLAbove high normal7.0-18.0AlbuminOctober 2024 5:15amOctober 2024 5:15am2.7 g/dL Below low normal3.4-5.0Eosinophils # (Auto)April 04, 2025 5:15amOctober 2024 5:15am0.0 10 3/uL0.0-0.7Blood Urea NitrogenOctober 2024 4:25am April 05, 2025 4:25am28.0 mg/dLAbove high normal7.0-18.0Mean Corpuscular HemoglobinOctober 2024 4:25amOctober 2024 4:25am31.1 pg25.9-34.0 AlbuminOctober 2024 4:06amOctober 2024 4:06am2.4 g/dLBelow low normal3.4-5.0Eosinophils # (Auto)April 06, 2025 4:06amOctober 2024 4:06am0.0 10 3/uL0.0-0.7AlbuminOctober 2024 4:17amOctober 2024 4:17am2.5 g/dLBelow low normal3.4-5.0Eosinophils # (Auto)April 07, 2025 4:17amOctober 2024 4:17am0.0 10 3/uL0.0-0.7AlbuminOctober 2024 8:53amOctober 2024 8:53am2.8 g/dLBelow low normal3.4-5.0Eosinophils # (Auto)April 12, 2025 8:53amOctober 2024 8:53am0.0 10 3/uL0.0-0.7 AlbuminNovember 2024 3:50pmNovember 2024 3:50pm3.3 g/dLBelow low normal3.4-5.0Eosinophils # (Auto)April 19, 2025 3:50pmNovember 2024 3:50pm0.0 10 3/uL0.0-0.7Eosinophils (%) (Auto)April 02, 2025 8:44amOctober 2024 8:44am0.1 %Below low normal0.9-7.0Alanine Aminotransferase (ALT/SGPT) April 02, 2025 8:44amOctober 2024 8:44am21 U/B48-07Smxbenn Level April 02, 2025 8:44amOctober 2024 8:44am9.1 mg/dL8.5-10.1Urine BacteriaOctober 2024 9:43pmNONE SEEN #/HPFNONE SEENEosinophils %April 03, 2025 5:05amOctober 2024 5:05am0.0 %Below low normal0.9-7.0Mean Corpuscular Hemoglobin ConcentOctober 2024 5:05am31.2 g/dL29.9-35.2Calcium LevelOctober 2024 5:05amOctober 2024 5:05am8.6 mg/dL8.5-10.1Alkaline PhosphataseOctober 2024 5:15amOctober 2024 5:15am91 U/L46-116 Eosinophils (%) (Auto)April 04, 2025 5:15amOctober 2024 5:15am0.0 % Below low normal0.9-7.0Calcium LevelOctober 2024 4:25amOctober 2024 4:25am8.4 mg/dLBelow low normal8.5-10.1Mean Corpuscular Hemoglobin Concent April 05, 2025 4:25amOctober 2024 4:25am32.3 g/dL29.9-35.2Alkaline PhosphataseOctober 2024 4:06amOctober 2024 4:06am92 U/L46-116 Eosinophils (%) (Auto)April 06, 2025 4:06amOctober 2024 4:06am0.0 % Below low normal0.9-7.0Alkaline PhosphataseOct2024 4:17amOctober 2024 4:17am93 U/Q32-583Ttiystdpmsz (%) (Auto)April 07, 2025 4:17am April 07, 2025 4:17am0.0 %Below low normal0.9-7.0Alkaline PhosphataseOctober 2024 8:53amOctober 2024 8:53am96 U/J24-992Lhkyvhsbyaq (%) (Auto) April 12, 2025 8:53amOctober 2024 8:53am0.0 %Below low normal0.9-7.0 Alkaline PhosphataseNovember 2024 3:50pmNov2024 3:81sp633 U/L 46-116Eosinophils (%) (Auto)April 19, 2025 3:50pmNovember 2024 3:50pm 0.0 %Below low normal0.9-7.0HematocritOctober 2024 8:44amOctober 2024 8:44am34.3 %Below low jlzzuu56.0-54.0Aspartate Amino Transf (AST/SGOT) April 02, 2025 8:44amOctober 2024 8:44am13 U/LBelow low -05 Chloride LevelOct2024 8:44amOctober 2024 8:53iq924 mmol/L98-107 Urine BilirubinOct2024 9:43pmNEGATIVENEGATIVELymphocytes # (Manual) April 03, 2025 5:05amOctober 2024 5:05am0.98 10 3/uLBelow low normal 1.20-3.80Mean Corpuscular VolumeOctober 2024 5:05am96.9 fLAbove high wxdove77.0-94.0Chloride LevelOctober 2024 5:05amOctober 2024 5:05am 101 mmol/B20-630Apyhrde Aminotransferase (ALT/SGPT)April 04, 2025 5:15am April 04, 2025 5:15am20 U/Q16-73PclkazeoogGrindlm 2024 5:15amOctober 2024 5:15am32.0 %Below low tanjir31.0-54.0Chloride LevelOctober 2024 4:25amOctober 2024 4:64tb028 mmol/E96-440Ypbr Corpuscular VolumeOct2024 4:25amOctober 2024 4:25am96.4 fLAbove high dbaabu94.0-94.0 Alanine Aminotransferase (ALT/SGPT)April 06, 2025 4:06amOctober 2024 4:06am25 U/L31-90QeqimtdshlAtzzakc 2024 4:06amOctober 2024 4:06am 30.3 %Below low .0-54.0Alanine Aminotransferase (ALT/SGPT)April 07, 2025 4:17amOctober 2024 4:17am21 U/Q47-94BgqfdonxntPuahixw 2024 4:17amOctober 2024 4:17am31.6 %Below low urqrzu06.0-54.0Alanine Aminotransferase (ALT/SGPT)April 12, 2025 8:53amOctober 2024 8:53am21 U/P22-58NjopmdvucgZefvkqz 2024 8:53amOctober 2024 8:53am32.2 %Below low meiwqy12.0-54.0Alanine Aminotransferase (ALT/SGPT)April 19, 2025 3:50pm April 19, 2025 3:50pm21 U/F43-71EzcgvkqmajResydeiu 2024 3:50pmNovember 2024 3:50pm33.8 %Below low wiyqhh26.0-54.0HemoglobinOctober 2024 8:44amOctober 2024 8:44am11.1 g/dLBelow low fnesvo51.0-18.0Direct BilirubinOct2024 8:44amOctober 2024 8:44am0.5 mg/dLAbove high normal0.0-0.2Carbon Dioxide LevelOctober 2024 8:44amOctober 2024 8:44am24.6 mmol/L21.0-32.0Urine Occult BloodOctober 2024 9:43pmNEGATIVE NEGATIVELymphocytes %April 03, 2025 5:05amOctober 2024 5:05am10.0 % Below low cpemtv18.5-60.0Mean Platelet VolumeOct2024 5:05am10.4 fL 9.5-13.5Carbon Dioxide LevelOctober 2024 5:05amOctober 2024 5:05am 24.6 mmol/L21.0-32.0Aspartate Amino Transf (AST/SGOT)April 04, 2025 5:15am April 04, 2025 5:15am<5 U/LBelow low jutmxd02-42JwiojhwoioLvygfwj 2024 5:15amOctober 2024 5:15am10.2 g/dLBelow low .0-18.0Carbon Dioxide LevelOctober 2024 4:25amOctober 2024 4:25am25.9 mmol/L21.0-32.0Mean Platelet VolumeOctober 2024 4:25amOctober 2024 4:25am9.7 fL9.5-13.5 Aspartate Amino Transf (AST/SGOT)April 06, 2025 4:06amOctober 2024 4:06am4 U/LBelow low rpqdeo42-40BcsgjqvuzjSmtdlqu 21st, 2025 4:06amOctober 2024 4:06am9.8 g/dLBelow low larfci53.0-18.0Aspartate Amino Transf (AST/SGOT) April 07, 2025 4:17amOctober 2024 4:17am<5 U/LBelow low zfnwis28-06 HemoglobinOctober 2024 4:17amOctober 2024 4:17am10.0 g/dLBelow low lorciz59.0-18.0Aspartate Amino Transf (AST/SGOT)April 12, 2025 8:53amOctober 2024 8:53am8 U/LBelow low rkecac11-92CjtuiukynoLydgkry 2024 8:53am April 12, 2025 8:53am10.2 g/dLBelow low guyack17.0-18.0Aspartate Amino Transf (AST/SGOT)April 19, 2025 3:50pmNovember 2024 3:50pm9 U/LBelow low iuruvb03-21FbeoifvxofZmxsqtom 3rd, 2025 3:50pmNovember 2024 3:50pm10.6 g/dLBelow low .0-18.0Immature Granulocyte # (Auto)April 02, 2025 8:44amOctober 2024 8:44am0.06 10 3/uLAbove high normal0.00-0.03Globulin April 02, 2025 8:44amOctober 2024 8:44am4.6 g/dLCreatinineOct2024 8:44amOctober 2024 8:44am1.74 mg/dLAbove high normal0.70-1.30 Urine AppearanceOct2024 9:43pmCLEARCLEARMonocytes # (Manual)April 03, 2025 5:05amOctober 2024 5:05am0.39 10 3/uL0.30-0.80Platelet Count April 03, 2025 5:47qz715 10 3/mO698-211QrngdsmrneSmzkxhi 18th, 2025 5:05am April 03, 2025 5:05am1.32 mg/dLAbove high normal0.70-1.30BUN/Creatinine RatioOct2024 5:15amOctober 2024 5:15am22.7Immature Granulocyte # (Auto)April 04, 2025 5:15amOct2024 5:15am0.06 10 3/uLAbove high normal0.00-0.03CreatinineApril 05, 2025 4:25amOct2024 4:25am1.32 mg/dLAbove high normal0.70-1.30Platelet CountOct2024 4:25amOct2024 4:57jy991 10 3/hZ566-850FDQ/Creatinine RatioOct2024 4:06am April 06, 2025 4:06am19.7Immature Granulocyte # (Auto)April 06, 2025 4:06amOct2024 4:06am0.08 10 3/uLAbove high normal0.00-0.03 BUN/Creatinine RatioOct2024 4:17amOctober 2024 4:17am17.0 Immature Granulocyte # (Auto)April 07, 2025 4:17amOctober 2024 4:17am 0.12 10 3/uLAbove high normal0.00-0.03BUN/Creatinine RatioOctober 2024 8:53amOctober 2024 8:53am11.8Immature Granulocyte # (Auto)April 12, 2025 8:53amOctober 2024 8:53am0.09 10 3/uLAbove high normal0.00-0.03 BUN/Creatinine RatioNove2024 3:50pmNovember , 2024 3:50pm13.1 Immature Granulocyte # (Auto)April 19, 2025 3:50pmNovember , 2024 3:50pm 0.07 10 3/uLAbove high normal0.00-0.03Immature Granulocyte % (Auto)April 02, 2025 8:44amOctober 2024 8:44am0.5 %0.0-0.5Total BilirubinOct2024 8:44amOctober 2024 8:44am1.6 mg/dLAbove high normal0.2-1.0Estimated GFR ()April 02, 2025 8:44amOctober 2024 8:10vx57Ifaai low normal>=60 mL/min/1.73m 2Urine ColorOct2024 9:43pmYELLOWYELLOW Monocytes %April 03, 2025 5:05amOctober 2024 5:05am4.0 %1.7-12.0Red Blood CountOctober 2024 5:05am3.18 10 6/uLBelow low normal4.70-6.10 Estimated GFR ()April 03, 2025 5:05amOctober 2024 5:05am>60>=60 mL/min/1.73m 2Blood Urea NitrogenOctober 2024 5:15amOctober 2024 5:15am34.0 mg/dLAbove high normal7.0-18.0Immature Granulocyte % (Auto)April 04, 2025 5:15amOctober 2024 5:15am0.6 %Above high normal 0.0-0.5Estimated GFR ()April 05, 2025 4:25amOctober 2024 4:25am>60>=60 mL/min/1.73m 2Red Blood CountOct2024 4:25amOctober 2024 4:25am3.02 10 6/uLBelow low normal4.70-6.10Blood Urea NitrogenOctober 2024 4:06amOctober 2024 4:06am25.0 mg/dLAbove high normal7.0-18.0 Immature Granulocyte % (Auto)April 06, 2025 4:06amOctober 2024 4:06am 1.2 %Above high normal0.0-0.5Blood Urea NitrogenOctober 2024 4:17amOctober 2024 4:17am24.0 mg/dLAbove high normal7.0-18.0Immature Granulocyte % (Auto)April 07, 2025 4:17amOctober 2024 4:17am1.6 %Above high normal 0.0-0.5Blood Urea NitrogenOctober 2024 8:53amOctober 2024 8:53am22.0 mg/dLAbove high normal7.0-18.0Immature Granulocyte % (Auto)April 12, 2025 8:53amOctober 2024 8:53am1.2 %Above high normal0.0-0.5Blood Urea Nitrogen April 19, 2025 3:50pmNovember 2024 3:50pm29.0 mg/dLAbove high normal 7.0-18.0Immature Granulocyte % (Auto)April 19, 2025 3:50pmNovember 2024 3:50pm0.9 %Above high normal0.0-0.5Lymphocytes # (Auto)April 02, 2025 8:44am April 02, 2025 8:44am0.9 10 3/uLBelow low normal1.2-3.8Total ProteinOct2024 8:44amOctober 2024 8:44am7.7 g/dL6.4-8.2Estimated GFR (Non- AmericanOct2024 8:44amOctober 2024 8:55yh05Hpprt low normal>=60 mL/min/1.73m 2Urine Glucose (UA)April 02, 2025 9:43pmNEGATIVE mg/dLNEGATIVESegmented Neutrophils # (Manual)April 03, 2025 5:05amOctober 2024 5:05am8.23 10 3/uLAbove high normal1.4-6.5Red Cell Distribution Width April 03, 2025 5:05am15.9 %Above high lruhbb32.0-15.0Estimated GFR (Non- AmericanOctober 2024 5:05amOctober 2024 5:67su23Xblie low normal>=60 mL/min/1.73m 2Calcium LevelOctober 2024 5:15amOctober 2024 5:15am8.7 mg/dL8.5-10.1Lymphocytes # (Auto)April 04, 2025 5:15amOctober 2024 5:15am0.9 10 3/uLBelow low normal1.2-3.8Estimated GFR (Non- AmericanOct2024 4:25amOctober 2024 4:36nx59Zglcd low normal>=60 mL/min/1.73m 2Red Cell Distribution WidthOct2024 4:25amOctober 2024 4:25am15.9 %Above high .0-15.0Calcium LevelOct2024 4:06amOctober 2024 4:06am8.4 mg/dLBelow low normal8.5-10.1Lymphocytes # (Auto)April 06, 2025 4:06amOctober 2024 4:06am0.9 10 3/uLBelow low normal1.2-3.8Calcium LevelOctober 2024 4:17amOctober 2024 4:17am8.5 mg/dL8.5-10.1Lymphocytes # (Auto)April 07, 2025 4:17amOctober 2024 4:17am0.8 10 3/uLBelow low normal1.2-3.8Calcium LevelOctober 2024 8:53am April 12, 2025 8:53am8.8 mg/dL8.5-10.1Lymphocytes # (Auto)April 12, 2025 8:53amOctober 2024 8:53am0.9 10 3/uLBelow low normal1.2-3.8Calcium Level April 19, 2025 3:50pmNovember 2024 3:50pm8.9 mg/dL8.5-10.1Lymphocytes # (Auto)April 19, 2025 3:50pmNovember 2024 3:50pm1.0 10 3/uLBelow low normal1.2-3.8Lymphocytes (%) (Auto)April 02, 2025 8:44amOctober 2024 8:44am7.3 %Below low ydbwiq00.5-60.0Glucose LevelOct2024 8:44am April 02, 2025 8:73ns217 mg/dLAbove high -589Rdnrr Hyaline Casts April 02, 2025 9:43pmFEWSegmented NeutrophilsOct2024 5:05am April 03, 2025 5:05am84.0Above high azzljt76.0-75.0Corrected White Blood CountOctober 2024 5:05am9.8 10 3/uL4.0-11.0Glucose LevelOctober 2024 5:05amOctober 2024 5:33be541 mg/aZ81-236Egnculwd LevelOctober 2024 5:15amOctober 2024 5:71lk528 mmol/D51-155Hycbrotbppt (%) (Auto)April 04, 2025 5:15amOctober 2024 5:15am8.8 %Below low bjduzb37.5-60.0Glucose LevelOctober 2024 4:25amOctober 2024 4:13au905 mg/kW22-104Xvfflfuvo White Blood CountOctober 2024 4:25amOctober 2024 4:25am7.1 10 3/uL 4.0-11.0Chloride LevelOctober 2024 4:06amOctober 2024 4:56rv212 mmol/Z59-603Ktymljzfvtn (%) (Auto)April 06, 2025 4:06amOctober 2024 4:06am13.6 %Below low ftpzec50.5-60.0Chloride LevelOctober 2024 4:17am April 07, 2025 4:86to782 mmol/G11-462Bmtcidghmer (%) (Auto)April 07, 2025 4:17amOctober 2024 4:17am10.8 %Below low sosunk98.5-60.0Chloride LevelOctober 2024 8:53amOctober 2024 8:33aj946 mmol/L98-107 Lymphocytes (%) (Auto)April 12, 2025 8:53amOctober 2024 8:53am12.2 % Below low .5-60.0Chloride LevelNovember 2024 3:50pmNov2024 3:50pm99 mmol/L72-879Kispfdcrgro (%) (Auto)April 19, 2025 3:50pm April 19, 2025 3:50pm11.7 %Below low cluqxh60.5-60.0Mean Corpuscular HemoglobinOctober 2024 8:44amOctober 2024 8:44am31.3 pg25.9-34.0 Potassium LevelOctober 2024 8:44amOctober 2024 8:44am4.8 mmol/L 3.5-5.1Urine KetonesOctober 2024 9:43pmNEGATIVE mg/dLNEGATIVEPotassium LevelOctober 2024 5:05amOctober 2024 5:05am3.9 mmol/L3.5-5.1Carbon Dioxide LevelOctober 2024 5:15amOctober 2024 5:15am25.9 mmol/L 21.0-32.0Mean Corpuscular HemoglobinOctober 2024 5:15amOctober 2024 5:15am30.9 pg25.9-34.0Potassium LevelOctober 2024 4:25amOctober 2024 4:25am3.2 mmol/LBelow low normal3.5-5.1Carbon Dioxide LevelOctober 2024 4:06amOctober 2024 4:06am25.3 mmol/L21.0-32.0Mean Corpuscular Hemoglobin April 06, 2025 4:06amOctober 2024 4:06am31.1 pg25.9-34.0Carbon Dioxide LevelOctober 2024 4:17amOctober 2024 4:17am23.4 mmol/L21.0-32.0Mean Corpuscular HemoglobinOctober 2024 4:17amOctober 2024 4:17am30.4 pg 25.9-34.0Carbon Dioxide LevelOctober 2024 8:53amOctober 2024 8:53am 27.2 mmol/L21.0-32.0Mean Corpuscular HemoglobinOctober 2024 8:53amOctober 2024 8:53am30.6 pg25.9-34.0Carbon Dioxide LevelNovember 2024 3:50pm April 19, 2025 3:50pm27.7 mmol/L21.0-32.0Mean Corpuscular HemoglobinNovember 2024 3:50pmNovember 2024 3:50pm30.3 pg25.9-34.0Mean Corpuscular Hemoglobin ConcentOctober 2024 8:44amOctober 2024 8:44am32.4 g/dL 29.9-35.2Sodium LevelOctober 2024 8:44amOctober 2024 8:27hd500 mmol/Q695-064Vanxw Leukocyte EsteraseOctober 2024 9:43pmNEGATIVENEGATIVE Sodium LevelOctober 2024 5:05amOctober 2024 5:09rz098 mmol/J136-124 CreatinineOctober 2024 5:15amOctober 2024 5:15am1.50 mg/dLAbove high normal0.70-1.30Mean Corpuscular Hemoglobin ConcentOctober 2024 5:15am April 04, 2025 5:15am31.9 g/dL29.9-35.2Sodium LevelOct2024 4:25am April 05, 2025 4:22pz601 mmol/G607-040MaiacnujbdXjjkptr 2024 4:06am April 06, 2025 4:06am1.27 mg/dL0.70-1.30Mean Corpuscular Hemoglobin Concent April 06, 2025 4:06amOctober 2024 4:06am32.3 g/dL29.9-35.2Creatinine April 07, 2025 4:17amOctober 2024 4:17am1.41 mg/dLAbove high normal 0.70-1.30Mean Corpuscular Hemoglobin ConcentOctober 2024 4:17amOctober 2024 4:17am31.6 g/dL29.9-35.2CreatinineOctober 2024 8:53amOctober 2024 8:53am1.86 mg/dLAbove high normal0.70-1.30Mean Corpuscular Hemoglobin ConcentOctober 2024 8:53amOctober 2024 8:53am31.7 g/dL29.9-35.2 CreatinineNovember 2024 3:50pmNov2024 3:50pm2.21 mg/dLAbove high normal0.70-1.30Mean Corpuscular Hemoglobin ConcentNov2024 3:50pm April 19, 2025 3:50pm31.4 g/dL29.9-35.2Mean Corpuscular VolumeOctober 2024 8:44amOctober 2024 8:44am96.6 fLAbove high tvyscs18.0-94.0Urine Mucus April 02, 2025 9:43pmNONE SEENNONE SEENEstimated GFR () April 04, 2025 5:15amOctober 2024 5:47rl40Jhnrq low normal>=60 mL/min/1.73m 2Mean Corpuscular VolumeOctober 2024 5:15amOctober 2024 5:15am97.0 fLAbove high gwqwro45.0-94.0Estimated GFR ()April 06, 2025 4:06amOctober 2024 4:06am>60>=60 mL/min/1.73m 2Mean Corpuscular VolumeOctober 2024 4:06amOctober 2024 4:06am96.2 fLAbove high normal 80.0-94.0Estimated GFR ()April 07, 2025 4:17amOctober 2024 4:17am60>=60 mL/min/1.73m 2Mean Corpuscular VolumeOctober 2024 4:17am April 07, 2025 4:17am96.0 fLAbove high vxwtwi85.0-94.0Estimated GFR ()April 12, 2025 8:53amOctober 2024 8:07mm68Dsqzr low normal >=60 mL/min/1.73m 2Mean Corpuscular VolumeOctober 2024 8:53amOctober 2024 8:53am96.7 fLAbove high .0-94.0Estimated GFR () April 19, 2025 3:50pmNovember 2024 3:82lh99Cqdny low normal>=60 mL/min/1.73m 2Mean Corpuscular VolumeNovember 2024 3:50pmNovember 2024 3:50pm96.6 fLAbove high shuzgr37.0-94.0Monocytes # (Auto)April 02, 2025 8:44amOctober 2024 8:44am0.9 10 3/uLAbove high normal0.3-0.8Urine Nitrite April 02, 2025 9:43pmNEGATIVENEGATIVEEstimated GFR (Non- April 04, 2025 5:15amOctober 2024 5:80ih79Bligx low normal>=60 mL/min/1.73m 2Monocytes # (Auto)April 04, 2025 5:15amOctober 2024 5:15am1.0 10 3/uLAbove high normal0.3-0.8Estimated GFR (Non- April 06, 2025 4:06amOctober 2024 4:77wy69Zqpzu low normal>=60 mL/min/1.73m 2Monocytes # (Auto)April 06, 2025 4:06amOctober 2024 4:06am0.8 10 3/uL0.3-0.8Estimated GFR (Non- AmericanOctober 2024 4:17amOctober 2024 4:33jy04Jylwu low normal>=60 mL/min/1.73m 2Monocytes # (Auto)April 07, 2025 4:17amOctober 2024 4:17am0.9 10 3/uLAbove high normal0.3-0.8Estimated GFR (Non- AmericanOctober 2024 8:53amOctober 2024 8:58jh41Wnonf low normal>=60 mL/min/1.73m 2Monocytes # (Auto)April 12, 2025 8:53amOctober 2024 8:53am0.8 10 3/uL0.3-0.8Estimated GFR (Non- AmericanNovember 2024 3:50pmNovember 2024 3:52mz00Arzsa low normal>=60 mL/min/1.73m 2Monocytes # (Auto)April 19, 2025 3:50pmNovember 2024 3:50pm1.1 10 3/uLAbove high normal0.3-0.8Monocytes (%) (Auto)April 02, 2025 8:44amOctober 2024 8:44am6.9 %1.7-12.0Urine pHOctober 2024 9:43pm5.55.0-9.0GlobulinOctober 2024 5:15amOctober 2024 5:15am 4.2 g/dLMonocytes (%) (Auto)April 04, 2025 5:15amOctober 2024 5:15am 9.6 %1.7-12.0GlobulinOctober 2024 4:06amOctober 2024 4:06am3.9 g/dL Monocytes (%) (Auto)April 06, 2025 4:06amOctober 2024 4:06am12.9 % Above high normal1.7-12.0GlobulinOctober 2024 4:17amOctober 2024 4:17am3.7 g/dLMonocytes (%) (Auto)April 07, 2025 4:17amOctober 2024 4:17am11.4 %1.7-12.0GlobulinOctober 2024 8:53amOctober 2024 8:53am 4.1 g/dLMonocytes (%) (Auto)April 12, 2025 8:53amOctober 2024 8:53am 10.3 %1.7-12.0GlobulinNovember 2024 3:50pmNovember 2024 3:50pm4.1 g/dL Monocytes (%) (Auto)April 19, 2025 3:50pmNovember 2024 3:50pm13.4 % Above high normal1.7-12.0Mean Platelet VolumeOctober 2024 8:44amOctober 2024 8:44am10.4 fL9.5-13.5Urine ProteinOctober 2024 9:43pm30 mg/dL Abnormal (applies to non-numeric results)NEG/TRACEGlucose LevelOctober 2024 5:15amOctober 2024 5:66dp871 mg/dLAbove high mzovuo14-937Jrvs Platelet VolumeOctober 2024 5:15amOctober 2024 5:15am10.2 fL9.5-13.5 Glucose LevelOctober 2024 4:06amOctober 2024 4:06am98 mg/kK82-625 Mean Platelet VolumeOctober 2024 4:06amOctober 2024 4:06am9.8 fL 9.5-13.5Glucose LevelOctober 2024 4:17amOctober 2024 4:17am92 mg/dL 74-106Mean Platelet VolumeOctober 2024 4:17amOctober 2024 4:17am9.7 fL9.5-13.5Glucose LevelOctober 2024 8:53amOctober 2024 8:53am96 mg/uC53-349Rqmy Platelet VolumeOctober 2024 8:53amOctober 2024 8:53am9.5 fL9.5-13.5Glucose LevelNovember 2024 3:50pmNovember 2024 3:50pm89 mg/zQ15-736Cqtq Platelet VolumeNovember 2024 3:50pmNovember , 2024 3:50pm9.8 fL9.5-13.5Neutrophils # (Auto)April 02, 2025 8:44amOctober 2024 8:44am10.8 10 3/uLAbove high normal1.4-6.5Urine RBCOctober 2024 9:43pmNONE SEEN #/HPF0-2Potassium LevelOctober 2024 5:15amOctober 2024 5:15am3.5 mmol/L3.5-5.1Neutrophils # (Auto)April 04, 2025 5:15amOctober 2024 5:15am8.3 10 3/uLAbove high normal1.4-6.5Potassium LevelOctober 2024 4:06amOctober 2024 4:06am3.4 mmol/LBelow low normal3.5-5.1Neutrophils # (Auto)April 06, 2025 4:06amOctober 2024 4:06am4.7 10 3/uL1.4-6.5 Potassium LevelOctober 2024 4:17amOctober 2024 4:17am3.4 mmol/LBelow low normal3.5-5.1Neutrophils # (Auto)April 07, 2025 4:17amOctober 2024 4:17am5.7 10 3/uL1.4-6.5Potassium LevelOctober 2024 8:53amOctober 2024 8:53am4.5 mmol/L3.5-5.1Neutrophils # (Auto)April 12, 2025 8:53amOctober 2024 8:53am5.7 10 3/uL1.4-6.5Potassium LevelNovember 2024 3:50pm April 19, 2025 3:50pm5.0 mmol/L3.5-5.1Neutrophils # (Auto)April 19, 2025 3:50pmNov2024 3:50pm6.0 10 3/uL1.4-6.5Neutrophils (%) (Auto)April 02, 2025 8:44amOctober 2024 8:44am85.0 %Above high vavgcq82.0-75.0Urine Specific GravityOctober 2024 9:43pm1.0251.005-1.025Sodium LevelOctober 2024 5:15amOctober 2024 5:89qi324 mmol/E365-583Ajsiviwmoof (%) (Auto)April 04, 2025 5:15amOctober 2024 5:15am80.8 %Above high normal 43.0-75.0Sodium LevelOctober 2024 4:06amOctober 2024 4:75uv487 mmol/U580-614Ishprhdqdmk (%) (Auto)April 06, 2025 4:06amOctober 2024 4:06am71.8 %43.0-75.0Sodium LevelOctober 2024 4:17amOctober 2024 4:82mq054 mmol/D466-827Wkckzchiepb (%) (Auto)April 07, 2025 4:17amOctober 2024 4:17am75.7 %Above high mygopg62.0-75.0Sodium LevelOctober 2024 8:53amOctober 2024 8:53ws318 mmol/Z359-583Kucyqtstzcl (%) (Auto)April 12, 2025 8:53amOctober 2024 8:53am75.8 %Above high hvwefj29.0-75.0Sodium LevelNov2024 3:50pmNovember 2024 3:07tj793 mmol/LBelow low iontdt670-236Nkrexoczpuh (%) (Auto)April 19, 2025 3:50pmNovember 2024 3:50pm73.4 %43.0-75.0Platelet CountOctober 2024 8:44amOctober 2024 8:59xm933 10 3/zF275-703Odclx Squamous Epithelial CellsOctober 2024 9:43pm RARE #/LPFNONE/RARETotal BilirubinOctober 2024 5:15amOctober 2024 5:15am0.8 mg/dL0.2-1.0Platelet CountOctober 2024 5:15amOctober 2024 5:92uq948 10 3/mM121-741Bovxy BilirubinOctober 2024 4:06amOctober 2024 4:06am0.7 mg/dL0.2-1.0Platelet CountOctober 2024 4:06amOctober 2024 4:64qq481 10 3/hB273-029Uqbnm BilirubinOctober 2024 4:17amOctober 2024 4:17am0.6 mg/dL0.2-1.0Platelet CountOctober 2024 4:17amOctober 2024 4:07yl929 10 3/gL480-583Xdcds BilirubinOctober 2024 8:53am April 12, 2025 8:53am0.7 mg/dL0.2-1.0Platelet CountOctober 2024 8:53am April 12, 2025 8:15vl816 10 3/sE391-386Euvbl BilirubinNovember 2024 3:50pmNovember 2024 3:50pm0.6 mg/dL0.2-1.0Platelet CountNovember 2024 3:50pmNovember 2024 3:63ht116 10 3/tI774-754Vgs Blood CountOctober 2024 8:44amOctober 2024 8:44am3.55 10 6/uLBelow low normal4.70-6.10Urine UrobilinogenOctober 2024 9:43pm0.2 EU/dL0.2-1.0Total ProteinOctober 2024 5:15amOctober 2024 5:15am6.9 g/dL6.4-8.2Red Blood CountOctober 2024 5:15amOctober 2024 5:15am3.30 10 6/uLBelow low normal4.70-6.10Total ProteinOctober 2024 4:06amOctober 2024 4:06am6.3 g/dLBelow low normal6.4-8.2Red Blood CountOctober 2024 4:06amOctober 2024 4:06am 3.15 10 6/uLBelow low normal4.70-6.10Total ProteinOctober 2024 4:17am October 2024 4:17am6.2 g/dLBelow low normal6.4-8.2Red Blood CountOctober 2024 4:17amOctober 2024 4:17am3.29 10 6/uLBelow low normal4.70-6.10 Total ProteinOctober 2024 8:53amOctober 2024 8:53am6.9 g/dL6.4-8.2 Red Blood CountOctober 2024 8:53amOctober 2024 8:53am3.33 10 6/uL Below low normal4.70-6.10Total ProteinNovember 2024 3:50pmNovember 2024 3:50pm7.4 g/dL6.4-8.2Red Blood CountNovember 2024 3:50pmNovember 2024 3:50pm3.50 10 6/uLBelow low normal4.70-6.10Red Cell Distribution Width April 02, 2025 8:44amOctober 2024 8:44am16.0 %Above high normal 11.0-15.0Urine WBCOctober 2024 9:43pmNONE SEEN #/HPFNONE SEENRed Cell Distribution WidthOctober 2024 5:15amOctober 2024 5:15am15.9 %Above high .0-15.0Red Cell Distribution WidthOctober 2024 4:06amOctober 2024 4:06am15.9 %Above high unazgx00.0-15.0Red Cell Distribution Width April 07, 2025 4:17amOctober 2024 4:17am15.8 %Above high normal 11.0-15.0Red Cell Distribution WidthOctober 2024 8:53amOctober 2024 8:53am15.9 %Above high okofmn04.0-15.0Red Cell Distribution WidthNovember 2024 3:50pmNovember 2024 3:50pm16.4 %Above high uezjep62.0-15.0Corrected White Blood CountOctober 2024 8:44amOctober 2024 8:44am12.7 10 3/uL Above high normal4.0-11.0Corrected White Blood CountOctober 2024 5:15am April 04, 2025 5:15am10.2 10 3/uL4.0-11.0Corrected White Blood CountOctober 2024 4:06amOctober 2024 4:06am6.5 10 3/uL4.0-11.0Corrected White Blood CountOctober 2024 4:17amOctober 2024 4:17am7.5 10 3/uL4.0-11.0 Corrected White Blood CountOctober 2024 8:53amOctober 2024 8:53am7.5 10 3/uL4.0-11.0Corrected White Blood CountNovember , 2025 3:50pmNov2024 3:50pm8.1 10 3/uL4.0-11.0 Vital Signs Vital Reading Result Reference Range Collection Date/Time Height 72 [in_i] April 09, 2025 8:61xfSeamvi04.96 [facility]Octuofl [facility] 2024 8:42amHeart Dbqq121 /kiv06-195Zrceuxm 2024 8:42amRespiratory rate12 /ixs44-14Rdsedpo 2024 8:42amBP Nysvcnjz306 mm[Hg]100-140Octuofl [facility] 2024 8:42amBP Eudqybocw54 mm[Hg]60-100Octuofl [facility] 2024 8:42amBMI (Body Mass Index)29.9 kg/s5Teecccs 2024 8:42am Advance Directives Advance Directive Response Recorded Date/ Time Advance Directives No October 19, 2020 10:13am Insurance Providers Guarantor Bryan Harris Address [address] [place] [address]Qivvqfg Info.Home Phone: Payer Group Member ID Coverage Type Subscriber Relationship to Subscriber Effective Date Expiration Date Aet[employer] [facility] Id: [id number] E Moyer Id: [id number] [address] [place] [address] Home Phone: Email: [email or web address] [email or web address] Encounter Location(s) Arrival/Admit Date Discharge/Departure Date Discharge/Departure Disposition Provider(s) Non-patient / Non-visit -[facility] O ctober 2024 9:44am Niecy Henderson-patient / Pwn-kuojo-[facility] 2024 6:05Reinaldo Emmanuel-patient / Mds-kksht-Slnfm [facility] 2024 6:15Reinaldo Emmanuel-patient / Owj-nrqdp-Jdthq [facility] 2024 5:25Reinaldo Emmanuel-patient / Xuc-mkbid-Dqqrt [facility] 2024 5:06am David Guadalupe-patient / Etb-zmfhp-Dvpou [facility]October 2024 5:17amMDavid Barragan-patient / [facility]uf[facility] 9:50amCatkofi Berman CMADeparted Physician/Provider [facility] 2024 9:31amOctober 2024 11:07amDischarged to home care or self care (routine discharge)Sherif Combs-patient / Dvr-rrlnh-Nskuy [facility] 2024 9:53am JOELLE Combseparted Physician/Provider Office Visit-[facility] 2024 4:03pmNov2024 5:59pmDischarged to home care or self care (routine discharge)Dawit Lorenz DO Recent Diagnosis Onset Date Admit Date Anasarca Unknown April 09, 9:31am Anemia Unknown April 09 9:31am Cellulitis [...] 9:31am Plan of Treatment Author [facility] Loren[facility] CenterAuthoredOctober 2024 10:00amSecondary to aggressive diuretic therapy for anasarca/cirrhosis Instructed [...] Date Comprehensive Metabolic Panel April 09, 2025 9:34am Future Visits Future appointment information is unavailable Future Procedures Future procedure information is unavailable Future Medications Future medication information is unavailable Patient Instructions Patient instructions are unavailable
--- OUTSIDE RECORDS SUMMARY | 2025-04-26 11:49 | XMS_ITS | Clinical Summary ---
Author Organization [employer] [facility] Address [id number] [address] 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
--- OUTSIDE RECORDS SUMMARY | 2025-04-26 11:49 | XMS_ITS | Encounter Summary ---
Author Organization [facility] Address [address] [place] [address] Care Team Providers Care Monotype Caster Name Role Phone Jere Sales MD Unavailable [phone] Calin Gotti DO Unavailable [phone] Jose Antonio Meyers MD Primary Care Provider [phone] Dawit Lorenz DO Unavailable [phone] Source Comments In the event this information is protected by the Federal Confidentiality of Alcohol and Drug AbusePatient Records regulations: The Federal rules restrict any use of the information to criminally investigate or prosecute any alcohol or drug abuse patient.[facility] Encounter Details DateTypeDepartmentCare Team (Latest Contact Info)Vihuxvtlvra76/31/2025 Patient Navigate [facility] [address] [place], [place] [id number] Provider, Ccf Primary Care Provider Social History [...] steady place to sleep or slept in derryelter (including now)?No11/21/2023rea Deprivation IndexAnswerDate RecordedNational Score (1-100), lower number is lower dmek290912/11/2023State Score (1-10), lower number is lower vagg663ata from: https://www.neighborhoodatlas.medicine.[facility].edu/. Last address used for efutcpk[address]12/11/2023Sex and Gender InformationValueDate Recorded Sex Assigned at WuqtcZske68/24/2025 12:44 PM EDTLegal KlhPuwv2412/05/2020 12:24 PM EDTGender OnvowwfrLyyn53/24/2025 12:44 PM EDTSexual OrientationNot on file documented as of this encounter Functional Status * Are you deaf or do you have serious difficulty hearing?AnswerDate of MjibufxxlwMchsuuMg06/11/2024 4:30 PM Sheri Guo RN * Are you blind or do you have serious difficulty seeing, even when wearing glasses?AnswerDate of CcfsvfhkffZzdxypLu43/11/2024 4:30 PM Sheri Guo RN * Do you have serious difficulty walking or climbing stairs?AnswerDate of CwoopwixwwNueqbvOa25/11/2024 4:30 PM Sheri Guo RN * Do you have difficulty dressing or bathing?AnswerDate of AssessmentAuthorNo 12/26/2023 4:30 PM Sheri Guo RN * Because of a physical, mental, or emotional condition, do you have difficulty doing errands alone such as visiting a doctor's office or shopping?AnswerDate of SrtrwyahdyEtzbayLe72/11/2024 4:30 PM Sheri Guo RN documented as of this encounter Mental Status * Because of a physical, mental, or emotional condition, do you have serious difficulty concentrating, remembering, or making decisions?AnswerEntry Date HeshycYh83/11/2024 4:30 PM Sheri Guo RN documented in this encounter Plan of Treatment DateTypeDepartmentCare Team (Latest Contact Info)Nxddubhvydf53/19/2025 10:00 AM ESTAppointment Gastroenterology [address] [address] Cammie Herron MD [address] [place] [address] Esophageal dysphagia [R13.19]05/12/2025 8:25 AM ESTOffice Visit Gastroenterology [address] [address] Luis Valentine MD [address] [place] [address] Araseli Wall Guvqisua31/ 11:45 AM ESTOffice [place] [address] [place] [address] [place] [address] [place] [address] Follow-up05/21/2025 2:00 PM ESTOffice Visit Cardiology [address] [facility] [place] [address] [place] [address] [facility] [place] [address] 6 month follow updocumented as of this encounter Goals GoalPatient Goal TypeAssociated ProblemsRecent ProgressPatient-Stated?Author Blood Pressure < 130/80 Blood Ksxitbft629/82(03/24/2025 12:30 PM EDT)Sung Mosley MD documented as of this encounter Visit Diagnoses Not on filedocumented in this encounter Care Teams Team MemberRelationshipSpecialtyStart [place] [address] [place] [address] PCP - GeneralFamily Medicine12/29/23 Jere Sales MD [address] [address] ReferringGastroenterology12/05/20 Calin Gotti DO [address] [place] [address] Internal Medicine10/16/23 Dawit Lorenz DO [address] [place] [address] [place] [address] Internal Urghtykg32/31/25documented as of this encounter
--- OUTSIDE RECORDS SUMMARY | 2025-04-26 11:49 | XMS_ITS | Encounter Summary ---
Author Organization [facility] Address [address] [place] [address] Care Team Providers Care Fashion Marketer Name Role Phone Jere Sales MD Unavailable [phone] Calin Gotti DO Unavailable [phone] Jose Antonio Meyers MD Primary Care Provider [phone] Dawit Lorenz DO Unavailable [phone] Source Comments In the event this information is protected by the Federal Confidentiality of Alcohol and Drug AbusePatient Records regulations: The Federal rules restrict any use of the information to criminally investigate or prosecute any alcohol or drug abuse patient.[facility] Reason for Visit * ReasonOnset DateCommentsPopulation Health Navigation Iguvwxmd96/31/2025BRITTANY Padron Attribution list Encounter Details DateTypeDepartmentCare Team (Latest Contact Info)Ydiweepinum42/31/2025Patient Outreach Navigate [facility] [place] [address] [place] [address] [place] [address] Courtney Benedict Population Health Navigation Outreach ([facility] Attribution list) Social History Tobacco UseTypesPacks/DayYears UsedDateSmoking Tobacco: NeverSmokeless Tobacco: NeverAlcohol UseStandard Drinks/WeekCommentsYes0 (1 standard drink = 0.6 oz pure alcohol)socially, no drink since HC UtilitiesAnswerDate RecordedIn the past 12 months has the [employer], gas, oil, or water [employer] threatened to shut off services in [...] RecordedNational Score (1-100), lower number is lower dirw318612/11/2023State Score (1-10), lower number is lower onfz148ata from: https://www.neighborhoodatlas.medicine.[facility].edu/. Last address used for yvd[address]12/11/2023Sex and Gender InformationValueDate Recorded Sex Assigned at MkngnEkpc62/24/2025 12:44 PM EDTLegal MbfGvcp5012/05/2020 12:24 PM EDTGender GrzpodxnKtxa56/24/2025 12:44 PM EDTSexual OrientationNot on file documented as of this encounter Functional Status * Are you deaf or do you have serious difficulty hearing?AnswerDate of DioxdyzrzrDudlikSv79/11/2024 4:30 PM Sheri Guo RN * Are you blind or do you have serious difficulty seeing, even when wearing glasses?AnswerDate of PujnakqxalKlqzmvPb23/11/2024 4:30 PM Sheri Guo RN * Do you have serious difficulty walking or climbing stairs?AnswerDate of ThkcoxezhbFhlixwCo64/11/2024 4:30 PM Sheri Guo RN * Do you have difficulty dressing or bathing?AnswerDate of AssessmentAuthorNo 12/26/2023 4:30 PM Sheri Guo RN * Because of a physical, mental, or emotional condition, do you have difficulty doing errands alone such as visiting a doctor's office or shopping?AnswerDate of NbaxtzblscEtbhdpTe67/11/2024 4:30 PM Sheri Guo RN documented as of this encounter Mental Status * Because of a physical, mental, or emotional condition, do you have serious difficulty concentrating, remembering, or making decisions?AnswerEntry Date CgcwieBp63/11/2024 4:30 PM Sheri Guo RN documented in this encounter Progress Notes * Courtney Benedict - 04/16/2025 2:26 PM EDT POPULATION HEALTH NAVIGATION OUTREACH Action/ Patient's called back. Patient has 2 PCPs--Dr. Meyers and Dr. Dawit Lorenz in [place], [place]. They work together caring for this patient. His also states that she will contact the insurance company to update their records. Reason for Outreach Returned Call/MyChart Patient Contacted: Spoke to patient/parent/or legal guardian Patient identified by name and date of : Yes Returned call/MyChart actions taken: No action required Navigation Signature: Courtney Beneditc April 16, 2025 2:30 PM * Courtney [...] Plan of Treatment DateTypeDepartmentCare Team (Latest Contact Info)Lbcddsoozdg10/19/2025 10:00 AM ESTAppointment Gastroenterology [address] [address] Cammie Herron MD [address] [place] [id number] Esophageal dysphagia [R13.19]05/12/2025 8:25 AM ESTOffice Visit Gastroenterology [address] [address] Luis Valentine MD [address] [place] [address] Araseli Wall Hrftftfe40/26/2025 11:45 AM ESTOffice [place] [address] [address] [facility] [address] [place] [address] [place] [address] Follow-up05/21/2025 2:00 PM ESTOffice Visit Cardiology [address] [facility] [place] [address] [place] [address] [place] [address] 6 month follow updocumented as of this encounter Goals GoalPatient Goal TypeAssociated ProblemsRecent ProgressPatient-Stated?Author Blood Pressure < 130/80 Blood Qylfxggk678/82(03/24/2025 12:30 PM EDT)Sung Mosley MD documented as of this encounter Visit Diagnoses Not on filedocumented in this encounter Care Teams Team MemberRelationshipSpecialtyStart [place] [address] [place] [address] PCP - GeneralFamily Medicine12/29/23 Jere Sales MD [address] [address] ReferringGastroenterology12/05/20 Calin Gotti DO [address] [place] [address] Internal Medicine10/16/23 Dawit Lorenz DO [address] [place] [address] Internal Tmrskmqb74/31/25documented as of this encounter
--- OUTSIDE RECORDS SUMMARY | 2025-04-26 11:49 | XMS_ITS | Encounter Summary ---
Author Organization [facility] Address [address] [place] [address] Care Team Providers Care Nursing Tech Name Role Phone KelechiDwait Pepe MATA Primary Care Provider [phone] Encounter Details DateTypeDepartmentCare Team (Latest Contact Info)Xfnjqekispx61/29/2025amboo flowsheet [facility] [address] [place] [address] Uzair Lubin DPM [address] [place], [place] [phone] Social History Tobacco UseTypesPacks/DayYears UsedDateSmoking Tobacco: NeverSmokeless Tobacco: NeverSex and Gender InformationValueDate RecordedSex Assigned at BirthNot on fileLegal PsdJuxp0508/29/2022 7:25 PM EDTGender IdentityNot on fileSexual OrientationNot on filedocumented as of this encounter Plan of Treatment DateTypeDepartmentCare Team (Latest Contact Info)Gjjdpjlogqr53/11/2025 1:45 PM ESTOffice Visit [facility] [address] [place] [address] Uazir Lubin DPReinaldo [address] [place], [place] [address] 08/16/2025 1:30 PM ESTOffice Visit [facility] [place] [address] [address] [facility] [address] [place] [address] Arley Hamilton DO [address] [place] [address] 08/31/2025 1:05 PM EDTOffice Visit [facility] [address] [place] [address] Bianca Bynum MD [address] [place] [address] documented as of this encounter Visit Diagnoses Not on filedocumented in this encounter Care Teams Team MemberRelationshipSpecialtyStart DateEnd Date Dawit Lorenz DO [address] [facility] [place] [address] PCP - GeneralInternal Medicine03/12/25documented as of this encounter
--- OUTSIDE RECORDS SUMMARY | 2025-04-26 11:49 | XMS_ITS | Clinical Summary ---
Author Organization [facility] Address [address] [place] [address] Care Team Providers Care Law Enforcement Director Name Role Phone Jere Sales MD Unavailable Calin Gotti DO Unavailable [phone] Jose Antonio Meyers MD Primary Care Provider Dawit Lorenz DO Unavailable Allergies Active AllergyReactionsCriticalityNoted DateCommentsAdhesive Tape-Silicones Stjudeuflry06/19/2025 Pt developed petechiae/blood blister/skin tear from EKG stickers. TramadolMental Status SrwlqmKvv55/01/2021 Medications MedicationSigDispense QuantityRefillsLast FilledStart DateEnd DateStatus allopurinol (ZYLOPRIM) 300 mg tablet Take 300 mg by mouth once daily.10/21/2020ctive calcium ocd-faz-S3-Zn-copier and printer field technician-kian 250 mg-40 mg- 125 unit-3.75mg tab Take [...] characters) 11/20/2023: SURGERY:R VATS Pleural biopsy, R senior mechanical estimator and doxycycline pleurodesis, R Pleurx catheter insertion, [...] - Controlled with current regimen of Fent DENTAL PATIENT COORDINATOR, Tylenol 1000 mg q6hrs, oxycodone 5-10 mg [...] stable. ProblemNoted DateDiagnosed DateStage 3a chronic kidney oubwqgc1801/26/2025KI (acute kidney injury)10/15/2024Esophageal gifnsupkq26/10/2025Lymphocytic colitis 05/19/2024Lung eheimj1205/19/20242524Boakbsemy40/01/2024hronic cough03/17/2024History of /10/2024Elevated sedimentation rate12/25/2023Elevated C- reactive protein (CRP)12/25/2023Generalized edema12/20/2023rimary hypertension 12/20/2023leural effusion, not elsewhere uctrayfwol08/05/2024ostoperative pain 11/21/2023leural mlswcluq72/05/2024Obesity, Class I, BMI 30-34.905 Resolved Problems ProblemNoted DateDiagnosed DateResolved DateRaynaud's phenomenon without mjmjxdov91/04/2024 Encounters DateTypeDepartmentCare FzifBhcycxhrrog09/31/2025 Patient Msg Navigate [facility] [address] [place] [address] Provider, Ccf Primary Care Fvrdsrbs94/31/2025[facility] [address] [place] [address] Courtney Benedict Population Health Navigation Outreach (QAI Chaito Attribution list)03/29/2025 12:55 PM EDT - 03/29/2025 11:59 PM EDTHospital Encounter Radiology [address] [place] [address] [place] [address] Pleural effusion, not elsewhere classified [J90] Discharge Disposition: Home03/24/2025 11:30 AM EDTNurse Visit Gastroenterology [address] [phone] 2, Nurse Gi Lab Esophageal bkfoprmoz65/08/2025 9:38 AM EDT - 03/24/2025 11:59 PM EDTHospital Encounter Gastroenterology [address] [place] [phone] Aure Giraldo MD Esophageal dysmotility [K22.4] Discharge Disposition: Home03/24/2025Results Follow-Up Gastroenterology [address] [address] Sue Terrell MD 03/18/2025Orders Only Gastroenterology [address] [address] Sue Terrell MD Esophageal dysphagia (Primary Dx)03/17/2025 Patient Msg Gastroenterology [address] [place] [phone] Provider, Ccf EGD Prep Fagatshwmrac25/01/2025GI Preprocedure Call Gastroenterology [address] [phone] Evans King RN 03/17/2025 Patient Msg Gastroenterology [address] [address] Aure Giraldo MD upper endoscopy 4:30 PM EDTOffice Visit Gastroenterology [address] [phone] Sue Terrell MD Esophageal dysmotility (Primary Dx); Esophageal /23/2025 1:15 PM [place]TOff[place] [address] [address] Jose Antonio Meyers MD Mixed connective tissue disease (HCC) (Primary Dx); Bruising; Primary hypertension; Stage 3a chronic kidney disease (HCC); Peripheral edema; Recurrent 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; Dguplwwy56/19/8006Lqpqql03/18/2025Telephone Thoracic Clinic [address] [place] [address] Ronaldo Ramos MD, PhD Faxed Discharge Home Care Order03/03/2025Or[place] [address] [address] [place] [address] Jose Antonio Meyers MD Generalized edema (Primary Dx); Pleural haqrzkaf74/11/2025 10:20 AM EDTOffice Visit Kidney [facility] [address] [address] Ar Suarez MD FLOYD (acute kidney injury) (Primary Dx); Screening for genitourinary condition; Elevated serum creatinine; Decreased GFR; Generalized edema; Pleural effusion, not elsewhere dkjtqwmmyt01/11/2025Patient Outreach [facility] [address] [place] [address] Ar Suarez MD 02/20/2025 Get Medical Advice Gastroenterology [address] [address] Araseli Wall, EMBEDDED LINUX ENGINEER.CURT Harris 1:11 PM EDT - 02/19/2025 11:59 PM EDTHospital Encounter Radiology [address] [address] Other ascites [R18.8] Discharge Disposition: Home02/19/2025 Patient [facility] HB-[address] [place] [address] Salud Trinh RPh At your next appointment, choose [facility].02/19/2025 Patient [facility] HB-[address] [place] [address] Salud Trinh RPh At your next appointment, choose [facility].02/17/2025 Get Medical Advice Gastroenterology [address] [address] Araseli Wall, EMBEDDED LINUX ENGINEER.CURT Harris. /07/2024 Patient [facility] [address] [address] Araseli Wall, EMBEDDED LINUX ENGINEER.AUTOMOTIVE ELECTRICIAN HELPER Biopsy follow up02/10/2025 Get Medical Advice Gastroenterology [address] [address] Araseli Wall, LETICIA.CURT Harris. 9:30 AM EDT - 02/02/2025 11:20 AM EDTSurgery Angio [address] [place] [address] Isaiah Pinto MD TRANSCATHETER HFAICH9102/02/2025 7:05 AM EDT - 02/02/2025 11:30 AM EDTHospital Encounter HOSP MAIN FB36 [address] [place] [address] Isaiah Pinto MD Elevated alkaline phosphatase level [R74.8] Discharge Disposition: Home02/02/20251421Orymqv37/12/2025 1:00 PM [place]TOff[place] [address] [place] [address] Jose Antonio Meyers MD Metabolic encephalopathy (Primary Dx); Stage 3a chronic kidney disease (HCC); Primary hypertension; Lymphocytic colitis; Generalized edema; Orthostatic hypotension; Cramp and spasm; Urge gnxszjgohdqd60/12/2025 Patient Msg Angio [address] [place] [address] Provider, Ccf Instructions for procedure on 02/02/2025from Last 3 Months Immunizations ImmunizationAdministration DatesNext DueCOD- original vaccine, age 12+ yr, monovalent (PFIZER-BIONTECH - PURPLE TOP)09/13/2020,08/22/2020,08/15/2020 influenza (HD-IIV3) vaccine, age 65+ yr, high dose, trivalent, PF (FLUZONE HIGH-DOSE)05/27/2024influenza (IIV3) vaccine, trivalent (AFLURIA, FLULAVAL, FLUVIRIN, FLUZONE)05/27/2024influenza (aIIV3) vaccine, age 65+ yr, trivalent, PF (FLUAD)05/09/2020influenza vaccine, unspecified fzicecdhrcd10/23/2020 pneumococcal conjugate (PCV13) vaccine, 13 valent (PREVNAR [...] RecordedNational Score (1-100), lower number is lower oxjk555112/11/2023State Score (1-10), lower number is lower dbnv168ata from: https://www.neighborhoodatlas.medicine.[facility].edu/. Last address used for nwvyffnzmka[address]/11/2023Sex and Gender InformationValueDate Recorded Sex Assigned at RrcnzPjdj59/24/2025 12:44 PM EDTLegal VtcJtel2312/05/2020 12:24 PM EDTGender MrmgvhkxRqcz74/24/2025 12:44 PM EDTSexual OrientationNot on file Last Filed Vital Signs Vital SignReadingTime TakenCommentsBlood Xwhtoizw207/8210 12:30 PM EDT Znbwe6820 12:30 PM MDVCbgopykrxwz40.8 ??C (96.4 ??F)03/24/2025 10:53 AM EDTRespiratory Jrcn3721 12:30 PM EDTOxygen Oxjpafwtwn79%03/24/2025 12:30 PM EDTInhaled Oxygen Concentration--Gjlbbo29.5 kg (195 lb)03/24/2025 10:53 AM HNILxuaod145.9 cm (6')03/24/2025 10:53 AM EDTBody Mass Index26.451 10:53 AM EDT Plan of Treatment DateTypeDepartmentCare Team (Latest Contact Info)Vgkrtiwziit98/19/2025 10:00 AM ESTAppointment Gastroenterology [address] [phone] Cammie Herron MD [address] [place], [place] [phone] Esophageal dysphagia [R13.19]05/12/2025 8:25 AM ESTOffice Visit Gastroenterology [address] [address] Luis Valentine MD [address] [place], [place] [phone] Araseli Duke Bkffhjlu85/26/2025 11:45 AM ESTOffice [place] [address] [place] [address] [place] [address] [place] [address] Follow-up05/21/2025 2:00 PM ESTOffice Visit Cardiology [address] [facility] [place] [address] [place] [address] [facility] [place] [address] 6 month follow upHealth MaintenanceDue DateLast DoneCommentsAnxiety Screening 1969Depression Khnrufood70/27/1969Hepatitis A Vaccine (1 of 2 - Risk 2- dose series)1970CT Bmheflzqleqd30/27/1996Cologuard (FIT-DNA)1996 Fecal Occult Blood03/13/19965386Brfgdhvdhbjif83/27/1996Hepatitis B Vaccine (1 of 3 - Risk 3-dose series)2011dvance Directive Afuwvvhrql95/01/2025Medicare Advantage Annual Wellness Visit06/17/2024ovid-19 Vaccine ( season) /, 09/13/2020, 08/22/2020, Additional history existsInfluenza Vaccine (#1)/04/2024, 05/27/2024, 05/09/2020, Additional history yqknobYwotmiggwcw81/12/202511/05/2024, 04/28/2024olorectal Cancer Screening 04/28/2025Hemoglobin/Szdoqukyrx06/11/723588/04/2025, 01/08/2025, 11/12/2024, Additional history existsAnnual PCP Team Chronic Disease Visit03/09/2026 03/09/2025Serum Unhjedszkm79/10/523861/03/2025, 03/05/2025, 02/11/2025, Additional history existsDiabetes Bfdzraqoi66, 03/05/2025, 02/11/2025, Additional history existsLipid Bayyqjwkd03/07/2023, 12/20/2023TaP,Tdap,Td Vaccine (2 - Td or Tdap), 08/30/2018, 06/04/2018Pneumococcal Vaccine: 50+Mzyvevibf81/20/2018, 11/26/2016Shingrix EwzwbagEuexrajpsquc86/16/2019RSV SvsjywyBvldlrcek19/11/2024Hepatitis C Screening Jdvvelmad95/25/2025, 11/17/2024, 11/17/2024 Goals GoalPatient Goal TypeAssociated ProblemsRecent ProgressPatient-Stated?Author Blood Pressure < 130/80 Blood Ivdobbmn177/82(03/24/2025 12:30 PM EDT)Sung Mosley MD Medical Devices ImplantedTypeAreaManufacturerDevice IdentifierShelf Expiration DateModel / Serial / LotCatheterCatheterRight: ChestDescription:Pleur-x catheterJoint - Knee Joint - KneeBilateral: Bone - KneeScrewScrewRight: Bone - Wrist Procedures Procedure NamePriorityDate/TimeAssociated DiagnosisCommentsXR CHEST 2V FRONTAL/ICQFsvgipu54/13/2025 1:09 PM EDT Pleural effusion, not elsewhere classified PLATELET AGGREGATION JVBBIDUdfjkwc50/10/2025 10:42 AM EDT Bruising EXTRA LAV MAN COAG RQFGPclrost69/10/2025 10:42 AM EDT Bruising PLATELET ZEVSKIRYNHNPbwdxcl61/10/2025 10:42 AM EDT Bruising PLATELET AGGREGATION SKYDXDbkfjhy64/10/2025 10:42 AM EDT Bruising BASIC METABOLIC ECYGFVjgnuyo43/10/2025 10:42 AM EDT Stage 3a chronic kidney disease (HCC) EGD - THERAPEUTIC, EUS, OR TUBE YGWEFMAPFPJRAJlzetwu78/08/2025 11:48 AM EDT Esophageal dysmotility MANOMETRY SBXTXEKVYZVsaiogi28/08/2025 Esophageal dysphagia PT ED DIGESTIVE KCWQVBR0603/17/2025 COMPREHENSIVE METABOLIC WFQCPQaortsa19/19/2025 11:14 AM EDT Generalized edema Pleural effusion PT ED PATIENT QFYEJVRHUYF37/16/2025 UA DIP, URINE (POC)Feijcqm0102/25/2025 10:05 AM EDT Screening for genitourinary condition US DOPPLER MTMVLHQNYeokdhu78/05/2025 1:47 PM EDT Other ascites US ABD LIVER AWJIYFAKZjugnrm01/05/2025 1:47 PM EDT Other ascites COMPREHENSIVE METABOLIC SQIQMIhtazws44/28/2025 11:12 AM EDT Stage 3a chronic kidney disease (HCC) IR TRANSJUGULAR LIVER BX W/UFGVKIudsgxh90/19/2025 10:19 AM EDT Elevated alkaline phosphatase level SURGICAL QECUFABPDIgtzyjn73/19/2025 10:11 AM EDT Elevated alkaline phosphatase level TRANSVASCULAR JFHRDQ8902/02/2025 8:40 AM EDT Elevated alkaline phosphatase level MAGNESIUM RAQUlmezaw72/11/2025 11:00 AM EDT Hypomagnesemia BASIC METABOLIC SKFZJSbbxxrc73/11/2025 11:00 AM EDT Dyslipidemia COMPLETE BLOOD SEPQUErnmuqg30/11/2025 11:00 AM EDT Anemia, unspecified type HEPATITIS C ANTIBODY IA WITH HUOWYVYVOBQDAggoyrf96/25/2025 12:33 PM EDT Elevated alkaline phosphatase level CHOLESTEROL SDNWnaulte31/02/2024 12:52 PM EST Pleural effusion COLONOSCOPY (THERAPEUTIC)Gbnbznp1504/28/2024 11:16 AM EST from Last 3 Months [...] any questions regarding this interpretation, please call [phone]. If you are unable to reach us at the number above, please feel free to contact [facility] at [phone]. Narrative 03/30/2025 12:40 PM EDT * * [...] and soft tissues: ??Unremarkable. Procedure Note Provider, [facility] [place] - 03/30/2025 * * *Final Report* * [...] any questions regarding this interpretation, please call [phone]. If you are unable to reach us at the number above, please feel free to contact [facility] eRadiology at [phone]. Authorizing ProviderResult TypeResult StatusColin Riggs MDRAD-PAMAFinal Result * (ABNORMAL) PLATELET AGGREGATION (03/26/2025 10:42 AM EDT)ComponentValueRef RangeTest MethodAnalysis TimePerformed AtPathologist SignatureADP 5 uM Max Noaceuyeorh89(L)65 - 93 % Max03/30/2025 7:48 AM EDM[facility] LABATP Release by ADP 5 uM0.40.1 - 1.3 nM03/30/2025 7:48 AM EDT [facility] LABADP 20 uM Max Maqsmlwzaop8758 - 94 % Max 03/30/2025 7:48 AM [facility] LABATP Release by ADP 20 uM 0.80.1 - 1.4 nM03/30/2025 7:48 AM [facility] Arachidonic Acid Max Uhqobuwwahm5275 - 100 % Max03/30/2025 7:48 AM EDT [facility] LABATP Release by Arachidonic Acid0.70.4 - 2.0 nM 03/30/2025 7:48 AM [facility] LABCollagen Max Aggregation 70(L)74 - 99 % Max03/30/2025 7:48 AM [facility] LABATP Release by Collagen0.60.4 - 1.7 nM03/30/2025 7:48 AM [facility] LABEpinephrine 10 uM Max Lxmaiugofvs1456 - 97 % Max03/30/2025 7:48 AM [facility] LABATP Release by Epinephrine 10 uM0.30.2 - 1.6 nM03/30/2025 7:48 AM [facility] LABEpinephrine 100 Max Fezcduwesuh0247 - 99 % 03/30/2025 7:48 AM [facility] LABATP Release by Epinephrine 100 uM0.70.2 - 1.7 nM03/30/2025 7:48 AM [facility] LABTHROMBOXANE A2 3 UM MAX BWBYGUZLVGB9038 - 93 % Max03/30/2025 7:48 AM [facility] LABATP RELEASE BY THROMBOXANE A20.40.2 - 1.4 nM03/30/2025 7:48 AM [facility] LABTHROMBIN 1 UNIT ATP RELEASE1.0>0.510 7:48 AM [facility] LABRisto 1500 u/mL Max Cxfltkccjdl4035 - 100 % Max 03/30/2025 7:48 AM [facility] LABRisto 1200 u/mL Max Votlrbpteyx8770 - 100 % Max03/30/2025 7:48 AM [facility] LABRisto 900 u/mL Max Yvcrogyzckl7089 - 100 % Max03/30/2025 7:48 AM EDT [facility] LABRisto 500u/mL Max Jnbmlekzoyr37 - 9 % Max 03/30/2025 7:48 AM [facility] LABSpecimen (Source) Anatomical Location / LateralityCollection Method / VolumeCollection Time Received TimeBloodBLOOD SPECIMEN / UnknownVenipuncture / Ghpdcsi9003/26/2025 10:42 AM EDT1 10:43 AM EDT Narrative Authorizing ProviderResult TypeResult StatusJose Antonio Meyers LABORATORYFinal ResultPerforming OrganizationAddressCity/State/ZIP CodePhone Number [facility] [address] [facility] [address] [place] [phone], * EXTRA LAV MAN COAG TUBE (03/26/2025 10:42 AM EDT)Specimen (Source)Anatomical Location / LateralityCollection Method / VolumeCollection TimeReceived Time BloodBLOOD SPECIMEN / UnknownVenipuncture / Oaeqnkg7203/26/2025 10:42 AM EDT 03/26/2025 10:43 AM EDT Narrative Authorizing ProviderResult TypeResult StatusJose Antonio Meyers MDLABORATORYFinal ResultPerforming OrganizationAddressCity/State/ZIP CodePhone Number [facility] [address] [phone], * PLATELET AGGREGATION INTERP (03/26/2025 10:42 AM [...] clinical findings and medication history.03/29/2025 6:39 PM EDM[facility] LABPlt Aggreg Pathologist InterpReviewed by Edmund Lehman MD03/29/2025 6:39 PM [facility] LABSpecimen (Source)Anatomical Location / Laterality Collection Method / VolumeCollection TimeReceived TimeBloodBLOOD SPECIMEN / UnknownVenipuncture / Qbkwteq0603/26/2025 10:42 AM EDT1 10:43 AM EDT Narrative Authorizing ProviderResult TypeResult StatusVjuan francisco Meyers MDLABORATORYFinal ResultPerforming OrganizationAddressCity/State/ZIP CodePhone Number [facility] [address] [place] [address], * (ABNORMAL) BASIC METABOLIC PANEL (03/26/2025 10:42 AM EDT) Only the most recent of2 resultswithin the time period is included. ComponentValueRef RangeTest MethodAnalysis TimePerformed AtPathologist Signature Wzkbxfy446(H)74 - 99 mg/dL03/26/2025 12:16 PM [facility] Comment: The [place] Diabetes Association (ADA) provides guidance for cutoff [...] Standards of Medical Care in Diabetes 2016, [place] Diabetes Association. Diabetes Care. 2016.39(Suppl 1). BUN34(H)9 - 24 mg/dL03/26/2025 12:16 PM [facility] LABORATORYCreatinine 1.59(H)0.73 - 1.22 mg/dL03/26/2025 12:16 PM [facility] SHNMXJVWGWXmfzvu114 (L)136 - 144 mmol/L1 12:16 PM [facility] LABORATORYPotassium3.8 3.7 - 5.1 mmol/L1 12:16 PM [facility] GUWTXVNXVPZmmmxjrn68(L)98 - 107 mmol/L1 12:16 PM [facility] XCVIKZWUTJRU59283 - 30 mmol/L 03/26/2025 12:16 PM [facility] LABORATORYAnion Csb231 - 15 mmol/L 03/26/2025 12:16 PM [facility] LABORATORYCalcium, Total8.78.5 - 10.2 mg/dL 03/26/2025 12:16 PM [facility] LABORATORYEstimated Glomerular Filtration Rate45(L)>=60 mL/min/1.73m 03/26/2025 12:16 PM [facility] LABORATORYComment:Estimated Glomerular Filtration Rate (eGFR) is [...] VolumeCollection TimeReceived TimeBloodBLOOD SPECIMEN / UnknownVenipuncture / Sbckukc9403/26/2025 10:42 AM EDT1 10:43 AM EDT Narrative Authorizing ProviderResult TypeResult StatusVyachessharona Meyers MDLABORATORYFinal ResultPerforming OrganizationAddressCity/State/ZIP CodePhone Number [facility] [address] [facility] [place] [address], * EGD - THERAPEUTIC, EUS, OR TUBE INTERVENTIONS (03/24/2025 11:48 AM EDT) Anatomical RegionLateralityModalityOtherSpecimen (Source)Anatomical Location / LateralityCollection Method / VolumeCollection TimeReceived Time03/24/2025 11:48 AM EDT Narrative 03/24/2025 12:15 PM EDT A31 Gastrointestinal Endoscopy Patient Name: Bryan Harris Procedure Date: 03/24/2025 11:48 AM Date of : 1950 Admit Type: Outpatient Age: 75 Room: A3 [facility] 5 Gender: Male Note Status: Finalized Attending MD: Aure Giraldo MD, [id number] Procedure: ? Upper GI endoscopy Indications: ? [...] performed in the entire esophagus with a SendtoNewsary dilator with no ? resistance at 18 [...] Procedure Code(s): ? --- Professional --- ? 82637, Esophagogastroduodenoscopy, flexible, ? transoral; with insertion of guide wire followed by ? passage of dilator(s) through esophagus over guide ? wire Diagnosis Code(s): ? --- Professional --- ? 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 K76.6, Portal hypertension ? K31.89, Other diseases of stomach and duodenum ? R13.10, Dysphagia, unspecified CPT copyright 2020 [employer]. All rights reserved. The codes documented in this report are preliminary and upon computer support technician review may be revised to meet current [...] On: 03/24/2025 11:48 AM Authorizing ProviderResult TypeResult StatusMalargelia Terrell MDDIGESTIVE DISEASE Final Result * MANOMETRY ESOPHAGEAL (03/24/2025)Anatomical RegionLateralityModalityOther Specimen (Source)Anatomical Location / LateralityCollection Method / Volume Collection TimeReceived TimeImplant/Device/Foreign Body03/24/2025 Narrative 03/24/2025 Patient: Bryan Harris ?? [id number] Gender: Male Physician: Aure Giraldo MD / Age: 0903/13/1950 Astronautical Engineer: Julien Saleh LPN Height: Referring Physician: Sue [...] Motility Normal Number of swallows evaluated 10 [place] Classification ?% failed 0 ?% weak 0 [...] study Aure Giraldo MD Authorizing ProviderResult TypeResult Josef Terrell MDDIGESTIVE DISEASE Final Result * PT ED DIGESTIVE DISEASE (03/17/2025)Specimen (Source)Anatomical Location / LateralityCollection Method / VolumeCollection TimeReceived Time03/17/2025 Narrative KATHY - 04/17/2025 Provider DUSTIN your patient BRYAN HARRIS has not started their Kathy program, time has . Kathy program: UPPER GI ENDOSCOPY (EGD) Authorizing ProviderResult TypeResult Coni Giraldo MDEMMIFinal Result Performing OrganizationAddressCity/State/ZIP CodePhone Number KATHY * (ABNORMAL) COMPREHENSIVE METABOLIC PANEL (03/05/2025 11:14 AM EDT) Only the most recent of2 resultswithin the time period is included. ComponentValueRef RangeTest MethodAnalysis TimePerformed AtPathologist Signature Protein, Total6.86.3 - 8.0 g/dL03/05/2025 11:52 AM EDTNORTHCOAST [facility] LABAlbumin4.03.9 - 4.9 g/dL03/05/2025 11:52 AM [facility] LABCalcium, Total8.78.5 - 10.2 mg/dL03/05/2025 11:52 AM T [facility] LABBilirubin, Total0.60.2 - 1.3 mg/dL 03/05/2025 11:52 AM [facility] LABAlkaline Phosphatase 117(H)38 - 113 U/L03/05/2025 11:52 AM [facility] AST<5(L)14 - 40 U/L03/05/2025 11:52 AM [facility] OOM8143 - 54 U/L03/05/2025 11:52 AM [facility] Cmpsnjf009(H)74 - 99 mg/dL03/05/2025 11:52 AM [facility] LABComment: The [place] Diabetes Association (ADA) provides guidance for cutoff [...] Standards of Medical Care in Diabetes 2016, [place] Diabetes Association. Diabetes Care. 2016.39(Suppl 1). QXU435 - 24 mg/dL03/05/2025 11:52 AM [facility] Creatinine1.23(H)0.73 - 1.22 mg/dL03/05/2025 11:52 AM [facility] SYURldlww146(L)136 - 144 mmol/L03/05/2025 11:52 AM [facility] LABPotassium4.93.7 - 5.1 mmol/L03/05/2025 11:52 AM EDT [facility] IBESaiuyeop8040 - 107 mmol/L03/05/2025 11:52 AM EDTRTMYMICHIG[facility] AAQSC77298 - 30 mmol/L03/05/2025 11:52 AM EDT[facility] LABAnion Owo329 - 15 mmol/L03/05/2025 11:52 AM EDTDA[facility] LABEstimated Glomerular Filtration Rate62>=60 mL/min/1.73m 03/05/2025 11:52 AM EDW[facility] LABComment:Estimated Glomerular Filtration Rate (eGFR) [...] VolumeCollection TimeReceived TimeBloodBLOOD SPECIMEN / UnknownVenipuncture / Kupdezv6403/05/2025 11:14 AM EDT03/05/2025 11:15 AM EDT Narrative Authorizing ProviderResult TypeResult StatusJose Antonio Meyers MDLABORATORYFinal ResultPerforming OrganizationAddressCity/State/ZIP CodePhone Number [facility] [address] [place] [address] * PT ED PATIENT INFORMATION (03/02/2025)Specimen (Source)Anatomical [...] MethodAnalysis TimePerformed AtPathologist SignatureGLUCOSE UA (POCT)Negative Negative mg/dLOhiohealth Nelsonville Health CenterBILIRUBIN UA (POCT)NegativeNegativeCarterville ClinicKETONE UA (POCT)NegativeNegative mg/dLMagruder Memorial HospitalPECIFIC GRAVITY UA (POCT)1.0151.005 - 1.030[facility] CenterHEMOGLOBIN/BLOOD UA (POCT)Negative NegativeOhiohealth Nelsonville Health CenterPH UA (POCT)7.04.5 - 8.0Cleprotestant hospital ClinicPROTEIN UA (POCT)NegativeNegative mg/dLOhiohealth Nelsonville Health CenterUROBILINOGEN UA (POCT)0.2Normal E.U./dLCleGrant HospitalNITRITE UA (POCT)NegativeNegativeOhiohealth Nelsonville Health Center LEUKOCYTES UA (POCT)NegativeNegativeOhiohealth Nelsonville Health CenterCOLOR UA (POCT)Light yellowCleGrant HospitalCLARITY UA (POCT)ClearMagruder Memorial Hospitalpecimen (Source) Anatomical Location / LateralityCollection Method / VolumeCollection Time Received TimeUrine specimen (specimen)URINE SPECIMEN / Kioyuue6302/25/2025 10:05 AM EDT Narrative [facility] - 02/25/2025 10:05 AM EDT Location:[facility], [address] [place] [address], [facility] Authorizing ProviderResult TypeResult StatusAr Suarez MDPOC TESTING Final ResultPerforming OrganizationAddressCity/State/ZIP CodePhone Number [facility] [address] * US ABD LIVER VASCULAR (02/19/2025 1:47 PM EDT)Anatomical RegionLaterality ModalityAbdomenUltrasoundSpecimen (Source)Anatomical Location / Laterality Collection Method / VolumeCollection TimeReceived Time02/19/2025 1:47 PM EDT Impressions 02/19/2025 3:17 PM EDT IMPRESSION: Cirrhotic liver morphology. ??No lesion. Patent hepatic vasculature with appropriately directed flow. Small volume abdominal ascites around the liver and in right lower quadrant. Onion Farmer: ALONSO ?? Transcribe Date/Time: Feb ??2024 ??1:53P Dictated by : LISBETH REBOLLAR MD This examination was interpreted and the report reviewed and electronically signed by: LONNIE ANN MD on Sep ??2024 ??3:15PM ??EST Narrative 02/19/2025 3:17 PM EDT * * *Final Report* * * DATE OF EXAM: Sep ??2024 ??1:47PM ?? RITA ?? 1233 ??- ??US ABD LIVER VASCULAR ??/ PROCEDURE REASON: Other ascites ? * * * * Physician Interpretation * * * * EXAMINATION: ??LIVER VASCULAR ULTRASOUND WITH DOPPLER IMAGING CLINICAL HISTORY: [place] liver biopsy 02/02/2025: Hepatic parenchyma with zone [...] normal, phasic wave form. Procedure Note Provider, [facility] - 02/19/2025 * * *Final Report* * * DATE OF EXAM: Feb 19 2025 1:47PM [facility] 1233 - US ABD LIVER VASCULAR / PROCEDURE REASON: Other ascites * * * * Physician Interpretation * * * * EXAMINATION: LIVER VASCULAR ULTRASOUND WITH DOPPLER IMAGING CLINICAL HISTORY: [place] liver biopsy 02/02/2025: Hepatic parenchyma with zone [...] the liver and in right lower quadrant. Onion Farmer: ALONSO Transcribe Date/Time: Feb 19 2025 1:53P Dictated by : LISBETH REBOLLAR MD This examination was interpreted and the report reviewed and electronically signed by: LONNIE ANN MD on Feb 19 2025 3:15PM EST Authorizing ProviderResult TypeResult StatusDonana maria Wall EMBEDDED LINUX ENGINEER.CNPUS-PAMAFinal Result * US DOPPLER COMPLETE (02/19/2025 1:47 PM EDT)Anatomical RegionLaterality ModalityUltrasoundSpecimen (Source)Anatomical Location / LateralityCollection Method / VolumeCollection TimeReceived Time02/19/2025 1:47 PM EDT Impressions 02/19/2025 3:17 PM EDT IMPRESSION: Cirrhotic liver morphology. ??No lesion. Patent hepatic vasculature with appropriately directed flow. Small volume abdominal ascites around the liver and in right lower quadrant. Onion Farmer: ALONSO ?? Transcribe Date/Time: Feb ??2024 ??1:53P [...] VASCULAR ULTRASOUND WITH DOPPLER IMAGING CLINICAL HISTORY: [place] liver biopsy 02/02/2025: Hepatic parenchyma with zone [...] normal, phasic wave form. Procedure Note Provider, [facility] - 02/19/2025 * * *Final Report* * * DATE OF EXAM: Feb 19 2025 1:47PM [facility] 1033 - US DOPPLER COMPLETE / PROCEDURE REASON: Other ascites * * * * Physician Interpretation * * * * EXAMINATION: LIVER VASCULAR ULTRASOUND WITH DOPPLER IMAGING CLINICAL HISTORY: [place] liver biopsy 02/02/2025: Hepatic parenchyma with zone [...] the liver and in right lower quadrant. Onion Farmer: ALONSO Transcribe Date/Time: Feb 19 2025 1:53P [...] TO BE MEAN OF 1 MM HG. Onion Farmer: ALONSO ?? Transcribe Date/Time: Feb 02 2025 [...] Loss: Minimal ATTENDING RADIOLOGIST: ?Isaiah Pinto M.D. SUPERVISOR RESIDENTIAL: ??None The procedure was performed by the: attending radiologist, without an assistant to the dean. The attending radiologist performed the following procedural activities: Entire procedure Authorizing ProviderResult TypeResult StatusDonana maria Wall APRN.CNPINTERVENTIONAL RADIOLOGYFinal Result * SURGICAL PATHOLOGY (02/02/2025 10:11 AM EDT)ComponentValueRef RangeTest Method Analysis TimePerformed AtPathologist SignatureCase ReportSurgical Pathology Report ? Case: [id number] ? Authorizing Provider: ??Isaiah Pinto MD ??Collected: ? 02/02/2025 10:11 AM ? Ordering Location: ? [facility] FB36 ? Received: ?02/02/2025 03:49 PM ? Pathologist: ? Lucy Ngo MD ? Specimen: ?Liver, Biopsy ? 02/08/2025 2:52 PM [facility] LABFINAL DIAGNOSISA. Liver, [place], biopsy: - Hepatic parenchyma with zone 3 patchy sinusoidal dilatation, patchy dilated/angulated portal veinbranches, and pericellular fibrosis. - See comment. 02/08/2025 2:52 PM [facility] at 1452 EDTDiagnosis CommentThe histologic examination shows 2 cores of liver parenchyma exhibiting adequate number of portal tracts for histologic evaluation. Portal tracts exhibit minimal mixed inflammation composed of predominantly lymphocytes admixed with rare plasma cells and eosinophils. [place] bile ducts are identifiedalong with bile ductular [...] hepatocytes (score 0 of 4+). CK7 highlights [place] bile ducts as well as biliary metaplasia. [...] agrees with the diagnosticinterpretation. 02/08/2025 2:52 PM [facility] LABGross DescriptionA. Liver, Biopsy Received in formalin are two segments of cylindrical tissue aggregating to 1.5 x 0.2 x 0.1 cm, brown and of a soft and friable consistency. Totally submitted in one cassette. [facility] February 02, 2025 8:03 PM Gross examination performed at [facility], [address] [place], [place] [address]/08/2025 2:52 PM [facility] Clinical Historyelevated [facility]02/08/2025 2:52 PM EDTFAIRVIEW LABORATORYPerforming LabDiagnostic interpretation performed at: [facility], [address] [place] [address], [place] [address] CLIA# [id number] Tongue And Groove Machine Operator: Ramos Strickland MD02/08/2025 2:52 PM [facility] LABDisclaimerLaboratory Developed Test (LDT) Disclaimer: Performance characteristics of immunohistochemical, immunofluorescent, and chromogenic in-situ hybridization tests have been determined by the performing laboratory within [facility]'s Nick Baltazar Pathology and Laboratory Medicine Department ([facility], [place] [facility], [facility], [facility], [facility], [facility], [facility], or [facility]) in a manner consistent with CLIA requirements. One or more of these tests may not have been cleared or approved by the FDA. [facility] is regulated under CLIA as qualified to perform high- complexity testing. These tests are used for clinical purposes. These should not be regarded asinvestigational or for research. Positive and negative controls stain appropriately.02/08/2025 2:52 PM EDTCOHIOHEALTH [facility] Specimen (Source)Anatomical Location / LateralityCollection Method / Volume Collection TimeReceived TimeTissueLIVER BIOPSY SPECIMEN / Djmwhat1402/02/2025 10:11 AM EDT02/02/2025 3:49 PM EDTComment:Pre-op diagnosis: Elevated alkaline phosphatase level [R74.8] Narrative Authorizing ProviderResult TypeResult StatusIsaiah Pinto MDSURGICAL PATHOLOGYFinal ResultPerforming OrganizationAddressCity/State/ZIP CodePhone Number [facility] [address] [address], [facility] [id number] [place] [address], * MAGNESIUM (01/25/2025 11:00 AM EDT)ComponentValueRef RangeTest MethodAnalysis TimePerformed AtPathologist SignatureMagnesium2.21.7 - 2.3 mg/dL01/25/2025 12:17 PM EDTNORTMYMICHIGAN MEDICAL [facility] LABSpecimen (Source)Anatomical Location / LateralityCollection Method / VolumeCollection TimeReceived Time BloodBLOOD SPECIMEN / UnknownVenipuncture / Tdmsgma6201/25/2025 11:00 AM EDT 01/25/2025 11:00 AM EDT Narrative Authorizing ProviderResult TypeResult StatusJose Antonio Meyers MDLABORATORYFinal ResultPerforming OrganizationAddressCity/State/ZIP CodePhone Number [facility] [address] [place] [address] * (ABNORMAL) COMPLETE BLOOD COUNT (01/25/2025 11:00 AM EDT)ComponentValueRef RangeTest MethodAnalysis TimePerformed AtPathologist SignatureWBC8.053.70 - 11.00 k/uL01/25/2025 11:05 AM EDTNORTMYMICHIGAN MEDICAL CENTER [facility] LABRBC3.75 (L)4.20 - 6.00 m/uL01/25/2025 11:05 AM [facility] OWTNekgyfinkn21.2(L)13.0 - 17.0 g/dL01/25/2025 11:05 AM [facility] EAONgwxkkyfbd55.9(L)39.0 - 51.0 %01/25/2025 11:05 AM EDT [facility] WIXTUW923.1(H)80.0 - 100.0 fL01/25/2025 11:05 AM [facility]TDA[facility] PGABZX90.526.0 - 34.0 pg 01/25/2025 11:05 AM [facility] ZDGIEJL67.230.5 - 36.0 g/dL01/25/2025 11:05 AM [facility] LABRDW-CV 14.711.5 - 15.0 %01/25/2025 11:05 AM [facility] LAB Platelet Jmrkj392265 - 400 k/uL01/25/2025 11:05 AM [facility] LABMPV9.89.0 - 12.7 NM01/25/2025 11:05 AM [facility] LABAbsolute nRBC<0.01<0.01 k/uL01/25/2025 11:05 AM EDT [facility] LABSpecimen (Source)Anatomical Location / LateralityCollection Method / VolumeCollection TimeReceived TimeBloodBLOOD SPECIMEN / UnknownVenipuncture / Ftmcnil2101/25/2025 11:00 AM EDT01/25/2025 11:00 AM EDT Narrative Authorizing ProviderResult TypeResult StatusVjuan francisco Meyers MDLABORATORYFinal ResultPerforming OrganizationAddressCity/State/ZIP CodePhone Number [facility] [address] [place] [phone] * HEPATITIS C ANTIBODY IA WITH CONFIRMATION (01/08/2025 12:33 PM EDT)Component ValueRef RangeTest MethodAnalysis TimePerformed AtPathologist SignatureHep C Antibody SIYazvvuggYiukhuce18/26/2025 11:03 AM [facility] LABComment:The result suggests no evidence of infection with Hepatitis C virus. Should recent infection be suspected, repeat testing may be considered 4-6 weeks after this draw.Specimen (Source)Anatomical Location / Laterality Collection Method / VolumeCollection TimeReceived TimeBloodBLOOD SPECIMEN / UnknownVenipuncture / Xqxerra7601/08/2025 12:33 PM EDT01/08/2025 12:33 PM EDT Narrative Authorizing ProviderResult TypeResult StatusAraseli Wall APRN.CNPLABORATORYFinal ResultPerforming OrganizationAddressCity/State/ZIP CodePhone Number [facility] [address] [facility] [place] [phone], * CHOLESTEROL BFL (05/18/2024 12:52 PM EST)ComponentValueRef RangeTest Method Analysis TimePerformed AtPathologist SignatureCholesterol, Body Eodfz82Eyw Comment mg/dL05/19/2024 3:[address] [facility] LABComment: SYNOVIAL FLUIDS: Synovial fluid cholesterol [...] document C49-A. RAJEEV Bui: Clinical Laboratory Standards [place]; 2007. Body Fluid Type (Chol)Pleural Cavity, Right05/19/2024 3:[address] [facility] LABSpecimen (Source)Anatomical Location / Laterality Collection Method / VolumeCollection TimeReceived TimeSterile Fluid/Body Fluid PLEURAL FLUID / UnknownNon Blood / Kgyomgu8105/18/2024 12:52 PM EST05/18/2024 11:34 PM EST Narrative Authorizing ProviderResult TypeResult StatusUddamiranda Douglas MDLABORATORYFinal ResultPerforming OrganizationAddressCity/State/ZIP CodePhone Number [facility] [address] [facility] [place] [address], * COLONOSCOPY (THERAPEUTIC) (04/28/2024 11:16 AM EST)Anatomical RegionLaterality ModalityOtherSpecimen (Source)Anatomical Location / LateralityCollection Method / VolumeCollection TimeReceived Time04/28/2024 11:16 AM EST Narrative 04/28/2024 11:59 AM EST [facility] Gastrointestinal Endoscopy Patient Name: Bryan Harris Procedure Date: 04/28/2024 11:16 AM Date of : 1950 Admit Type: Outpatient Age: 74 Room: [place] [address] Gender: Male Note Status: Finalized Attending MD: Vic Ponce MD, [id number] Procedure: ?Colonoscopy Indications: ?Chronic diarrhea Comorbidities ? Patient with chronic right pleural effusion unknown etiology/origin ? with N,V, diarrhea and weight loss. Providers: ?Vic Ponce MD, Nenita Almonte RN, Richey ?Uche, RN, Adri Bradley RN (Assisting ?Nurse) [...] physician, the nurse, the ?anesthesiologist and the bottom cementer in the ?procedure room at 11:29 AM. [...] prior dose. Procedure Code(s): ?--- Professional --- ?59054, Colonoscopy, flexible; with biopsy, ?single or multiple Diagnosis Code(s): ?--- Professional --- ?K52.9, Noninfective gastroenteritis and colitis, ?unspecified CPT copyright 2021 [employer]. All rights reserved. The codes documented in this report are preliminary and upon computer support technician review may be revised to meet current [...] MemberRelationshipSpecialtyStart [place] [address] [address] [place] [address] PCP - GeneralVan Diest Medical Centerly Medicine12/29/23 Jere Sales MD [address] [facility] [address] [place] [address] ReferringGastroenterology12/05/20 Calin Gotti DO [address] [place] [address] Internal Medicine10/16/23 Dawit Lorenz DO [address] [place] [address] Internal Lnfkchiq49/31/25
--- OUTSIDE RECORDS SUMMARY | 2025-04-26 11:49 | XMS_ITS | Clinical Summary ---
Author Organization [facility] Address [address] [place] [address] Care Team Providers Care Knurling Machine Operator Name Role Phone Dawit Lorenz Primary Care Provider [phone] Allergies Active AllergyReactionsCriticalityNoted DateCommentsOxycodone-Acetaminophen Kqerubi2703/13/2016 Other Reaction(s): Other (See Comments) Urinary retention Hallucinations TramadolShortness of breath,KzefyngLgbi74/10/2015 Other Reaction(s): Mental Status Change Medications MedicationSigDispense [...] posterior capsular opacification 08/12/2024halazion of left upper gnegxo9508/12/2024 Encounters DateTypeDepartmentCare PbmvNftkvvcenud78/29/2025 4:15 PM EDTProcedure Visit [facility] [address] [place] [address] Uzair Lubin DPM Dermatophytosis of nail (Primary Dx); Dystrophic nail; Pain around toenail, right foot; Pain around toenail, left foot04/14/2025amboo flowsheet [facility] [address] [place] [phone] Uzair Lubin DPM 04/14/20258968Edapfm88/09/2025 11:15 AM EDTOffice Visit [facility] [address] [place] [phone] Uzair Lubin DPM 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, stage 2 ([facility]) (Primary Dx); Cellulitis of left foot; Pain in toe of left foot; Difficulty pynjhyp1603/25/2025amboo flowsheet [facility] [address] [place] [address] Uzair Lubin DPM 03/25/20259093Liidfh61/08/5093Elulsv46/01/2025 10:15 AM EDTOffice Visit [facility] [address] [place] [address] Uzair Lubin DPM 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, stage 2 ([facility]) (Primary Dx); Cellulitis of left foot; Pain in toe of left foot; Difficulty kuuckho0203/17/2025amboo flowsheet [facility] [address] [place] [address] Uzair Lubin DPM 03/17/20252024Vhbiuc77/30/3600Hnoybw27/26/2025 9:50 AM EDTAncillary Procedure [facility] [address] [place] [address] 03/12/2025 8:45 AM EDTOffice Visit [facility] [address] [facility] [place] [address] Uzair Lubin DPM 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, stage 2 ([facility]) (Primary Dx); Cellulitis of left foot; Pain in toe of left foot; Difficulty ymponvw55/26/2025Bamboo flowsheet [facility] [address] [place] [address] Uzair Lubin DPM 03/12/20253578Pyqmzv46/25/2025Travelfrom Last 3 Months Immunizations ImmunizationAdministration DatesNext DueInfluenza, High Dose Seasonal, Preservative Free05/27/2024Influenza, trivalent, /23/2020 Pneumococcal Conjugate PCV 13011/26/2016Pneumococcal Polysaccharide PPSV23 02/03/2018RSV, recombinant, protein subunit RSVpreF, adjuvant reconstitu, 120mcg/0.5mL, PF (Arexvy)05/27/2024Td (adult), 5 Lf tetanus toxoid, preservative free, /16/2019,06/04/2018Tdap107/28/2023Zoster, Gmqqvizptif51/16/2019 Family History Medical HistoryRelationNameCommentsMelanomaNeg Hx Social History Tobacco UseTypesPacks/DayYears UsedDateSmoking Tobacco: NeverSmokeless Tobacco: Never Tobacco Cessation:Counseling Given: Not Answered Sex and Gender InformationValueDate RecordedSex Assigned at BirthNot on file Legal YivAcbq4408/29/2022 7:25 PM EDTGender IdentityNot on fileSexual Orientation Not on file Last Filed Vital Signs Vital SignReadingTime TakenCommentsBlood Pressure--Pulse--Temperature-- Respiratory Rate--Oxygen Saturation--Inhaled Oxygen Concentration--Rnrpkn19.3 kg (188 lb)04/14/2025 4:36 PM YAKSaxzja917.9 cm (6')04/14/2025 4:36 PM EDTBody Mass Index25. 4:36 PM EDT Plan of Treatment DateTypeDepartmentCare Team (Latest Contact Info)Jheytivicoa51/11/2025 1:45 PM ESTOffice Visit [facility] [address] [place] [phone] Uzair Lubin, DPM [address] [place] [address] 08/16/2025 1:30 PM ESTOffice Visit [facility] [address] [place] [address] Arley Hamilton DO [address] [place] [address] 08/31/2025 1:05 PM EDTOffice Visit [facility] [address] [place] [address] Bianca Bynum MD [address] [place] [address] Health MaintenanceDue DateLast DoneCommentsCT Umzghzdjwwhd1950FIT-DNA 1950FIT1950FOBT03/13/19518750Wzbidpzswhxlh1951OVID-19 Vaccine ( season)/, 09/13/2020, 08/22/2020Influenza Vaccine (#1)/04/2024, 05/09/20204252Kgimqewhsey08/12/417637/05/2024, 04/28/2024, 04/28/2024olorectal Cancer Zzinunejb76/12/2034Pneumococcal Vaccine: 65+ Years Wjhdeadcq16/20/2018, 11/26/2016 Procedures Procedure NamePriorityDate/TimeAssociated DiagnosisCommentsXR FOOT 3+ VIEWS LEFT Hzktkkq9903/12/2025 9:49 AM EDT Pressure injury of toe [...] the 1st MTP joint. Authorizing ProviderResult TypeResult StatusSteven A Michaelher DPMIMG XR PROCEDURES Final Result from Last 3 Months Insurance Care Teams Team MemberRelationshipSpecialtyStart DateEnd Date Dawit Lorenz DO [address] [place] [address] PCP - GeneralInternal Medicine03/12/25
--- OUTSIDE RECORDS SUMMARY | 2025-04-26 11:49 | XMS_ITS | Encounter Summary ---
Author Organization [facility] Address [address] [place] [address] Care Team Providers Care Code Number Stamper Name Role Phone Dawit Lorenz Primary Care Provider [phone] Encounter Details DateTypeDepartmentCare Team (Latest Contact Info)Qelkkcroktv73/29/2025Travel Social History Tobacco UseTypesPacks/DayYears UsedDateSmoking Tobacco: NeverSmokeless Tobacco: NeverSex and Gender InformationValueDate RecordedSex Assigned at BirthNot on fileLegal ZeoAgmw2308/29/2022 7:25 PM EDTGender IdentityNot on fileSexual OrientationNot on filedocumented as of this encounter Plan of Treatment DateTypeDepartmentCare Team (Latest Contact Info)Tupsxyuflea70/11/2025 1:45 PM ESTOffice Visit [facility] [address] [place] [phone] Uzair Lubin, DPM [address] [place] [address] 08/16/2025 1:30 PM ESTOffice Visit [facility] [address] [place] [address] Arley Hamilton, DO [address] [place] [address] 08/31/2025 1:05 PM EDTOffice Visit [facility] [address] [place] [phone] Bianca Bynum MD [address] [facility] [address] [place] [address] documented as of this encounter Visit Diagnoses Not on filedocumented in this encounter Care Teams Team MemberRelationshipSpecialtyStart DateEnd Date Dawit Lorenz DO [address] [facility] [place] [address] PCP - GeneralInternal Medicine03/12/25documented as of this encounter
--- OUTSIDE RECORDS SUMMARY | 2025-04-26 11:49 | XMS_ITS | Clinical Summary ---
Author Organization [facility] Address [address] [place] [address] Care Team Providers Care It Risk Advisor Name Role Phone Dawit Lorenz DO Primary Care Provider [phone] Dawit Lorenz DO Unavailable [phone] Karthik Calloway MD Unavailable Unavail able Allergies Active AllergyReactionsCriticalityNoted DateCommentsOxycodone-AcetaminophenOther (See Comments)2016 Urinary retention Hallucinations TramadolShortness Of FkjdnwIebc07/10/2015 Medications MedicationSigDispense QuantityRefillsLast FilledStart DateEnd DateStatus omeprazole [...] mouth every morning .Active vit A-vit C-vit X-wues-ukxwkr 7160-390-100 lljy-wb-ufim Tab Take 1 tablet by mouth every [...] g 5Active Active Problems ProblemNoted DateDiagnosed DateUrinary gseefnpej33/11/2017 Assessment & Plan (06/27/2016 12:19 PM EST): [...] for , 07/05/16 @ 130pm at our [facility] office. S/P total knee sfviktlqkild85/09/8786Lckurrowwoqpbq68/09/2017Primary osteoarthritis of left knee08/02/2015Retention of urine08/25/2014cute blood loss hvkvlc3108/24/20140037Ijblfyriajbt60/10/2015Osteoarthritis of left knee08/23/2014 Assessment & Plan (08/23/2014 1:29 PM EDT): Postoperative day of surgery left total knee arthroplasty. Enteric coated aspirin--deep venous thrombosis prophylaxis per primary surgical service. Analgesia: Percocet + IV hydromorphone as needed for breakthrough pain. Other and unspecified oxuepiztuwzrfq47/09/2015 Assessment & Plan (08/23/2014 1:30 PM EDT): Hyperlipidemia-controlled on statin--continue postop. Qaikavm0008/23/2014 Overview (03/17/2015): Updated per ICD10 Conversion Assessment [...] InformationValueDate RecordedSex Assigned at BirthNot on fileLegal PzhBumv0602/09/2014 1:03 PM EDTGender IdentityNot on file Sexual OrientationNot on file Last Filed Vital Signs Vital SignReadingTime TakenCommentsBlood Mblsymiw640/76006/29/2016 7:30 AM EST Lkoen5243 7:30 AM UWPMhzsghqgcmw50.9 ??C (98.4 ??F)06/29/2016 7:30 AM ESTRespiratory Xzic087506/29/2016 7:30 AM ESTOxygen Gyunachjyh67%06/29/2016 7:30 AM ESTInhaled Oxygen Concentration--Dlaeej21.8 kg (220 lb)02/11/2023 3:16 PM EDT Cxrhwn946.9 cm (6')02/11/2023 3:16 PM EDTBody Mass Index29.8402/11/2023 3:16 PM EDT Plan of Treatment Health MaintenanceDue DateLast DoneCommentsCT Vgovgagvrbcm1951Colonoscopy 1Colorectal Cancer Screening/Eindnvzsgh1950Fecal DNA1950 Fecal occult blood test (FOBT,FIT)1PSA Level1951Medicare Wellness Visit4Depression Screening/Follow-Up (PHQ-2/9)1963Hepatitis C Hupzeiheu79/27/1969Flexible jgxqmbagmmjaq80/27/2001Falls Risk Assessment 2016Tetanus/Diphtheria/Pertussis (1 - Tdap), 06/04/2018Zoster Vaccines (2 of 2)COVID-19 Vaccine (4 - season)/, 09/13/2020, 08/22/2020Influenza Vaccine (#1)/, 05/09/2020RSV Vaccines (1 - 1-dose 75+ series) 2026Pneumococcal Vaccine: 50+ JdotfLthjzsdhw51/20/2018, 11/26/2016HIB VaccinesAged OutNo longer eligible based on [...] 1 X 40 [place] Bone Single - [id number] Implanted:Qty: 2 on 08/23/2014 [facility]: EcurUgivkn97/31/167691-3450-944-99 / / [id number] Short Cemented Persona - [id number] Implanted:Qty: 1 on 08/23/2014 by Karthik Calloway MD at [facility]09/23/2017956613-9158-129-99 / / [id number] Sz F Tib 5deg Nonpor Lt Persona - [id number] Implanted:Qty: 1 on 08/23/2014 by Karthik Calloway MD at [id number] / / [id number] Sz9 Lt Nrw Ps Cmt Ccr Persona - [id number] Implanted:Qty: 1 on 08/23/2014 by Karthik Calloway MD at [id number] / / [id number] 32mm All Poly Persona - [id number] Implanted:Qty: 1 on 08/23/2014 by Karthik Calloway MD at [id number] / / [id number] Surf Ef 6-9 14mm Lt Ps Vivacit-E Persona - [id number] Implanted:Qty: 1 on 08/23/2014 by Karthik Calloway MD at [facility]09/23/2017586515-4874-387-90 / / [id number] Hv With Gentamicin Cement Implanted:Qty: 2 on 06/25/2016 [facility] PwxpTTJYKKSKA54/31/[id number] / / [id number] Sz F Tib 5deg Nonpor Rt Persona - [id number] Implanted:Qty: 1 on 06/25/2016 [id number] / / [id number] Sz9 Rt Nrw Ps Cmt Ccr Persona - [id number] Implanted:Qty: 1 on 06/25/2016 [id number] / / [id number] Short Cemented Persona - [id number] Implanted:Qty: 1 on 06/25/2016 [id number] / / [id number] 32mm All Poly Vivacit-E - [id number] Implanted:Qty: 1 on 06/25/2016 by [facility] [place] [id number] / / [id number] Surf 14mm 6-9ef Rt Cps Ve Persona - [id number] Implanted:Qty: 1 on 06/25/2016 [facility]075780-5384-532-51 / / [id number]sohttHjcvvm IdentifierShelf Expiration DateModel / Serial / LotHeaded Screw Explanted:Qty: 4 on 08/23/2014 by [facility] DcppXfntbt96/28/69738562-06 / / [id number] Female Hex Screw Explanted:Qty: 1 on 08/23/2014 by [facility]: QcbtLuodga65/31/059469-6686-300-22 / / [id number] Screw Explanted:Qty: 1 on 08/23/2014 by [facility]: SvtpWfwxzk99/31/[id number] / / Insurance * Guarantor: Bryan Harriscoprosper TypeRelation to PatientDate of BirthPhone Billing AddressPersonal/RjxgefZssq1950 [phone] (Home) [address] [place] [address] Advance Directives For more information, please contact: [phone] * Full Code (Latest Code Status on File) Date ActivatedDate InactivatedComments06/25/2016 1:54 PM06/29/2016 3:41 PM * Full Code Date ActivatedDate InactivatedComments08/23/2014 6:45 AM08/25/2014 7:58 PM Care Teams Team MemberRelationshipSpecialtyStart DateEnd Date Dawit Lorenz DO [address] [place] [address] PCP - GeneralInternal Medicine06/29/14 Dawit Lorenz DO [address] [place] [address] Internal Medicine06/29/14 Karthik Calloway MD [address] [place] [address] Consulting PhysicianOrthopedic Surgery01/28/17
--- OUTSIDE RECORDS SUMMARY | 2025-04-26 12:02 | XMS_ITS | CCD ---
Author Organization [facility] CliniSymd Care Team Providers Care Card Sorter Name Role Phone Loida, Yuli E Unavailable Ball, Yuli E Unavailable Karthik Calloway Unavailable [phone] Unavailable Primary Care Provider Unavailabl e Yuli Mariscal E Primary Care Provider [phone] Loida, Yuli E Unavailable Karthik Calloway Unavailable [phone] Yuli Mariscal E Primary Care Provider Loida, Yuli E Unavailable Karthik Calloway Unavailable Unavailabl e Ball DO, Yuli E Primary Care Provider Ball DO, Yuli E Unavailable Elli BECERRIL, Karthik Mathias Unavailable [...] Unavailab le MARGIE EDOUARD Admitting Unavailab le LOIDA YULI E Primary Care Unavailable LOIDA, YULI E Primary Care Unavailable GRECIA FAITH Attending Unavailable LOIDA, YULI E Primary Care Unavailable MARGIE EDOUARD Attending Unavailab le LOIDA, YULI E Primary Care Unavailable NENA HUFF Attending Unavailable YULI MARISCAL E Primary Care Unavailable NENA HUFF Admitting Unavailable NENA HUFF Referring Unavailable BALL, YULI E Primary Care Unavailable MARGIE [...] Unavailable Samsa, DO Sintia P Attending Provider [phone] Samsa, Sintia P Admitting Unavailable Samsa, Sintia P Attending Unavailable Samsa, Sintia P Admitting Unavailable Samsa, Sintia P Attending Unavailable Samsa, Sintia P Admitting Unavailable Samsa, Sintia P Attending Unavailable Jere Sales Unavailable Yuli Mariscal DO E Primary Care Provider Samsa DO, Sintia P Unavailable ZAVARELLA, RUMA Referring Unavailable BALL, YULI E Primary Care Unavailable LAYELLAJASE Attending Unavailable ZAVARELLA, RUMA Referring Unavailable BALL, [...] SUDISH Referring Unavailable ARSENIO, UDDALAK Attending Unavailable ARSENIO, UDDALAK Referring Unavailable BALL, YULI E Primary Care Unavailable KATERINA BRAVO Referring Unavailable BALL, YULI E Primary Care Unavailable YEHUDA DIAL Unavailable ISAKOV, JOSE ANTONIO Admitting Unavailable ISAKOV, JOSE ANTONIO Attending Unavailable BALL, YULI E Primary Care Unavailable LOIDA, YULI E Primary Care Unavailable BRAVOKATERINA BENNETT Referring Unavailable ARSENIO, UDDALAK Referring Unavailable ZAYOVANIELLA RUMA Attending Unavailable BALL, YULI E Primary [...] Primary Care Unavailable JULIAN BATISTA Attending Unavailable SUE MURILLO Referring Unavailable BALL, YULI E Primary Care Unavailable Henrry BECERRIL, Jere Marie Unavailable Unavailable Primary Care Provider Unavailkael Hopper MD, Jose Antonio Primary Care Provider PROVIDER, UNKNOWN Referring Unavailable PROVIDER, UNKNOWN Primary Care Unavailable Ball DO, Yuli E Primary Care Provider BALL, YULI E Primary Care Unavailable ZABRINA SUAREZ Referring Unavailable BALL, YULI E Primary Care Unavailable XIOMARA LY Referring Unavailable BALL, YULI E Primary Care Unavailable XIOMARA LY Referring Unavailable ISAKOV, JOSE ANTONIO Primary Care Unavailable ISAKOV, JOSE ANTONIO Referring Unavailable BALL, YULI E Primary Care Unavailable ERNIE LYY Referring Unavailable Ball DO, Yuli Primary Care Provider Yehuda Boggs DO Attending Provider [phone] Bijal Kaur MD Attending Provider Pablito Hoffman MD Attending Provider Joselin Berman CMA Attending Provider Unavaila ble Yuli Mariscal DO Attending Provider [phone] Ball DO, Yuli E Primary Care Provider ANNE-MARIE BAJWA Attending Unavailable RAJI BYNUM Attending Unavailable RUSHER, JAMEL Doyle Attending Unavailable RUSHER, JAMEL Doyle Referring Unavailable RUSHER, JAMEL Doyle Attending Unavailable RUSHER, JAMEL Doyle Attending Unavailable RUSHER, JAMEL Doyle Attending Unavailable KATERINA CONTRERAS Attending Unavailable BALL, YULI E Primary Care Unavailable TRISTON RIGGS Referring Unavailable BALL, YULI E Primary Care Unavailable BALL, YULI E Primary Care Unavailable KATERINA CONTRERAS Attending Unavailable BALL, YULI E Primary Care Unavailable ISAKOV, JOSE ANTONIO Primary Care Unavailable NASKIANAR, SUE Attending Unavailable ISAKOV, JOSE ANTONIO Primary [...] Unavailable ISAKOV, JOSE ANTONIO Primary Care Unavailable LOUISE CESAR Referring Unavailable BALL, YULI E Primary Care Unavailable MARLYN HOOPER Attending Unavailable XIOMARA LY Referring Unavailable ISAKOV, JOSE ANTONIO Primary Care Unavailable RJ CHAN Attending Unavailable NASEER, SUE Referring Unavailable ISAKOV, JOSE ANTONIO Primary Care Unavailable ROSEANN ROSARIO Admitting Unavailable ROSEANN ROSARIO Attending Unavailable BALL, YULI E Primary Care Unavailable MERLYN ZAVALA Admitting Unavailable MERLYN ZAVALA Attending Unavailable BALL, YULI E Primary Care Unavailable NASKIANAR, SUE Attending Unavailable BALL, YULI E Primary Care Unavailable BALL, YULI E Primary Care Unavailable STEFFEN MCCARTY Attending Unavailabl e BALL, YULI E Primary Care Unavailable ISAKOV, JOSE ANTONIO Referring Unavailable ISAKOV, JOSE ANTONIO Primary Care Unavailable SANDIEJOSUÉNA Referring Unavailable ISAKOV, JOSE ANTONIO Primary Care Unavailable ZABRINA SUAREZ Attending Unavailable SANDIE MARLYN Referring Unavailable ISAKOV, JOSE ANTONIO Primary Care Unavailable BALL, YULI E Primary Care Unavailable XIOMARA LY Attending Unavailable ISAIAH MURRY Admitting Unavailabl e ISAIAH MURRY Attending Unavailabl e ISAKOV, JOSE ANTONIO Primary Care Unavailable RIGGS, TRISTON Referring Unavailable ISAKOV, JOSE ANTONIO Primary Care Unavailable ZAC MENDIOLA Referring Unavailable ISAKOV, JOSE ANTONIO Primary Care Unavailable RIGGS, TRISTON Admitting Unavailable RIGGS, TRISTON Attending Unavailable BALL, YULI E Primary Care Unavailable BALL, YULI E Primary Care Unavailable LAISHA WELLSGH Attending Unavailable RIGGS, TRISTON Admitting Unavailable RIGGS, [...] JOSE ANTONIO Primary Care Unavailable RIGGS, TRISTON Attending Unavailable ISAKOV, JOSE ANTONIO Primary Care Unavailable RIGGS, TRISTON Referring Unavailable BALL, YULI E Primary Care Unavailable DELLA BARRAGAN Attending Unavailable BALL, YULI E Primary Care Unavailable NASEER, SUE Attending Unavailable BALL, YULI E Primary Care Unavailable ISAKOV, JOSE ANTONIO Referring Unavailable BALL, YULI E Primary Care Unavailable BALL, YULI E Primary Care Unavailable TRISTON RIGGS Attending Unavailable MENDIOLA, ZAC Referring Unavailable ISAKOV, JOSE ANTONIO Primary Care Unavailable MENDIOLA, ZAC Referring Unavailable ISAKOV, JOSE ANTONIO Primary Care Unavailable MENDIOLA, ZAC Referring Unavailable ISAKOV, JOSE ANTONIO Primary Care Unavailable ISAKOV, JOSE ANTONIO Primary Care Unavailable XIOMARA LY Referring Unavailable YULI MARISCAL Primary Care Unavailable ZABRINA SUAREZ Attending Unavailable XIOMARA LY Referring Unavailable LOIDA, YULI Cantu Primary Care Unavailable TRISTON RIGGS Referring Unavailable ISAKOV, JOSE ANTONIO Primary Care Unavailable RIGGS, TRISTON Referring Unavailable ISAKOV, JOSE ANTONIO Primary Care Unavailable ISAKOV, JOSE ANTONIO Referring Unavailable ISAKOV, JOSE ANTONIO Primary Care Unavailable NASEER, SUE Referring Unavailable YULI MARISCAL Primary Care Unavailable NASEER, SUE Referring Unavailable YULI MARISCAL Primary Care Unavailable TRISTON RIGGS Attending Unavailable CAROLYNN TRISTON Referring Unavailable ISAKOV, JOSE ANTONIO Primary Care Unavailable ISAKOV, JOSE ANTONIO Referring Unavailable ISAKOV, JOSE ANTONIO Primary Care Unavailable Yuli Mariscal DO Primary Care Provider Yehuda Boggs DO Attending Provider [phone] Bijal Kaur MD Attending Provider [phone] Pablito Hoffman MD Attending Provider Joselin Berman CMA Attending Provider Unavaila ble Yuli Mariscal DO Attending Provider Allergies Allergy ClassificationReported Allergen(s)Allergy TypeDate of OnsetReaction(s) FacilityOpioid Agonists (1 source)traMADolDrug Zyrpwiy18-17-9889Dzuaye Status ChangeSelect [facility] (20 sources)acetaminophen / oxyCODONE; Translations: [OXYCODONE-ACETAMINOPHEN] Propensity to adverse reactions to gill29-50-8863Qunxg (See Comments), Unknown [facility] Work Phone: (20 sources)traMADol; Translations: [TRAMADOL]Propensity to adverse reactions to yjfq48-05-3680Bblpsrxeb Of Breath, Mental Status Change, Unknown[facility] Work Phone: (1 source)traMADolDrug Znybcgr53-11-8992Pgr [facility] (1 source)traMADolDrug Jqozlme87-56-4738ZqmuhozenAultman Hospital [facility] (7 sources)Adhesive Tape-Silicones; Translations: [ADHESIVE TAPE-SILICONES]Drug Aqnjlzzcvvf88-16-4889KmevalivrdlWygcmzudl Clinic Medications Current Medications MedicationDrug Class(es)DatesSig (Normalized)Sig (Original)AeroChamber Mini Chamber - (1 source)Start: 30-48-0740DinqTjshzjg Mini Chamber - Use w/ MDI inhaled every 6 hours as needed for 30 days Jul, Pdiusywfi605290 60 actuat albuterol 0.09 mg/actuat metered dose inhaler (1 source)beta2-Adrenergic AgonistStart: 27-63-0850Mltefqxne Sulfate HFA 108 (90 Base) MCG/ACT 2 puffs Inhalation every 6 hours as needed for cough. Minimum bid for 30 days Jul, Activeallopurinol 300 mg oral tablet (20 sources)Xanthine Oxidase InhibitorStart: 01-24-2024 End: 00-68-7636nrud 1 tablet by mouth once dailyStart: 12-30-2023 End: 65-96-9357Hmhtokgeqrl 300 mg tablet Discontinued 0 .ROUTE .COMPLEX 90 3 December 30, 2023 11:30am January 24, 2024 12:49pm TAKE 1 TABLET DAILYStart: 12-30-2023 End: 59-36-3596Vrarkmcwzjd 300 mg tablet Discontinued 0 .ROUTE .COMPLEX 90 December 30, 2023 12:30pm January 24, 2024 1:49pm TAKE 1 TABLET DAILYStart: 10-21-2020 End: 57-59-1249dfdc 1 tablet by mouth once dailyAllopurinol 300 mg tablet Discontinued 300 MG PO Daily October 20, 2020 11:00pm December 30, 2023 11:30am ASCORBATE CALCIUM (VITAMIN C ORAL) (17 sources)take [...] sources)Platelet Aggregation Inhibitor, Nonsteroidal Anti-inflammatory Drug End: 57-96-0298ysac 1 tablet by mouth at bedtimeaspirin 81 MG EC tablet Take 81 mg by mouth at bedtime. 03/12/2025 Discontinued (Discontinued by another clinician)atorvastatin 10 mg oral tablet (20 sources)HMG-CoA Reductase InhibitorStart: 08-05-2023 End: 13-32-4446Krbya: 10-21-2020 End: 95-57-1037yytg 1 tablet by mouth once dailyAtorvastatin 10 mg tablet Discontinued 10 MG PO Daily October 20, 2020 11:00pm August 05, 2023 7:58pm benzonatate 100 mg oral capsule (11 sources)Non-narcotic AntitussiveStart: 70-08-7999bnco 1 capsule by mouth three times dailyStart: 16-35-3735vzdh 1 capsule by mouth every eight hours [...] morning . ActiveCalcium (20 sources)Phosphate Binder, Calciumcalcium wwd-zvv-E7-Zn-coping machine operator-kian 250 mg-40 mg- 125 unit-3.75mg tab [...] oral capsule (20 sources)Cephalosporin AntibacterialStart: 10-30-2024 End: 29-35-8708rker 1 capsule by mouth three times dailyStart: 33-82-8983blqm 1 capsule by mouth every eight hoursCephalexin 500 MG 1 capsule Orally tid for 5 days Dec, Not-Taking/PRNStart: 90-61-8440anku 1 capsule by mouth twice daily as neededCephalexin 500 MG 1 capsule Orally twice daily for 7 days Jun, Not-Taking/PRNciprofloxacin 3 mg/ml ophthalmic solution (9 sources)Quinolone AntimicrobialStart: 69-84-1366jone 1 drop(s) into the eye(s) four times dailyciprofloxacin HCl (CILOXAN) 0.3 % ophthalmic solution INSTILL 1 DROP INTO AFFECTED EYE 4 TIMES DAILY 10/04/2022 Activecodeine phosphate 2 mg/ml / guaiFENesin 20 mg/ml oral solution (9 sources)Opioid AgonistStart: 13-51-4802shql 1 mL by mouth every six hours as needed for coughStart: 78-21-0961zgvc 10 mL by mouth every six hours as needed for coughguaiFENesin-Codeine 100-10 MG/5ML 10 mL as needed Orally every 6 hours as needed for cough for 7 days Jun, Activedexamethasone 1 mg/ml / tobramycin 3 mg/ml ophthalmic suspension (1 source)Aminoglycoside Antibacterial, CorticosteroidStart: 08-12-2024 End: 31-79-7988pqinfmrvmw-dexAMETHasone (Tobradex) ophthalmic suspension Indications: Chalazion of left upper eyelid Administer 1 drop into the left eye in the morning and 1 drop at noon and 1 drop in the evening and 1 drop before bedtime. Do all this for 14 days. 5 mL 1 08/12/2024 08/26/2024 Active Dextromethorphan / guaiFENesin (10 sources)Uncompetitive Y-lpbjdd-V-aspartate Receptor Antagonist, Sigma-1 AgonistDextromethorphan-guaiFENesin (MUCINEX DM PO) Take by mouth Active diclofenac sodium 0.01 mg/mg topical gel (20 sources)Nonsteroidal Anti-inflammatory DrugStart: 47-07-4577zjpxlxbqmw sodium 1% (Voltaren Arthritis Pain) 1 % Gel Apply 2 (two) g topically 4 (four) times a day as needed for pain Apply 2 grams to affected area up to 4 times a day as needed for pain. . 300 g2 07/13/2024 ActiveStart: 07-09-2024 End: 82-48-9915ldmbaotail sodium 1% (Voltaren) 1 % Gel Apply 2 (two) g topically 4 (four) times a day Apply 2 grams to affected area up to 4 times a day as needed PRN pain. . 900 g 2 07/09/2024 07/10/2024 Discontinued (Error)Start: 01-22-2024 End: 86-94-1892vbztadpkze (VOLTAREN) 1 % topical gel 01/22/2024 02/26/2025 DiscontinuedStart: 05-13-2023 End: 88-86-9763odlxhfveke sodium (Voltaren) 1 % Gel Apply 2 (two) g topically 4 (four) times a day Apply 2 grams to affected area up to 4 times a day as needed PRN pain. . 900 g 2 05/13/2023 07/08/2024 Discontinued(Reorder (Suppress CancelRx Message to Pharmacy))Start: 08-30-2022 End: 78-59-4656hgkmfernjv sodium (Voltaren) 1 % Gel Apply 2 (two) g topically 4 (four) times a day Apply 2 grams to affected area up to 4 times a day as needed PRN pain. . 300 g 2 08/31/2022 Activedoxycycline monohydrate 100 mg oral tablet (12 sources)Tetracycline-class DrugStart: 82-24-5630mrzs 1 tablet by mouth in the morningdoxycycline (Adoxa) 100 MG tablet Take 100 mg by mouth in the morning and 100 mg before bedtime. 04/08/2025 ActiveStart: 75-57-7874cbqg 1 capsule by mouth every twelve hoursDoxycycline Hyclate 100 MG 1 capsule Orally Twice a day for 7 days Jun, Not-Taking/PRNenteric contrast (will be provided with radiology test) (3 sources)Start: 10-21-2024 End: 90-15-2944ziskwzd contrast (will be provided with radiology test) Indications: Other ascites , Generalized abdominal pain For CT ENTEROGRAPHY W IVCON order Administer, As Directed One Time Only, via Oral, Rectal, both Oral and Rectal, Enteric Tube, Stoma or Indwelling Catheter, Enteric Contrast as designatedper enteric contrast guidelines. 1 each 10/21/2024 10/22/2024 Active Start: 04-20-2024 End: 53-02-9806etyrnsu contrast (will be provided with radiology test) Indications: Diarrhea, unspecified type ForCT ENTEROGRAPHY W IVCON order Administer, As Directed One Time Only, via Oral, Rectal, both Oral and Rectal, Enteric Tube, Stoma or Indwelling Catheter, Enteric Contrast as designated per enteric contrast guidelines. 1 Each 04/20/2024 04/21/2024 Expirederythromycin 0.005 mg/mg ophthalmic ointment (4 sources)Macrolide, Macrolide AntimicrobialStart: 07-21-2024 End: 87-18-8999sobcinsmrqll (ROMYCIN) 5 mg/gram (0.5 %) ophthalmic ointment Use 1 application in both eyes two times a day for 10 days. into affected eye(s). 3.5 g 07/21/2024 07/31/2024 Activefluorouracil 50 mg/ml topical cream (15 sources)Nucleoside Metabolic InhibitorStart: 30-44-3748wodonemwwfkH (EFUDEX) 5 % cream 07/12/2020 ActiveGUAIFENESIN/DEXTROMETHORPHAN (MUCINEX DM ORAL) (17 sources)GUAIFENESIN/DEXTROMETHORPHAN (MUCINEX DM ORAL) Take by mouth. 0 ActiveGUAIFENESIN/DEXTROMETHORPHAN (MUCINEX DM ORAL) Take by mouth. Active guaifenesin/dextromethorphan (MUCINEX DM ORAL) (20 sources)guaifenesin/dextromethorphan (MUCINEX DM ORAL) Take by mouth two times a day. Activeiv contrast (will be provided with radiology test) (20 sources)Start: 10-21-2024 End: 40-98-1982ix contrast (will be provided with radiology test) [...] 1 each 10/21/2024 10/22/2024 ActiveStart: 04-20-2024 End: 18-57-0667xc contrast (will be provided with radiology test) [...] 1 Each 04/20/2024 04/21/2024 ExpiredStart: 03-17-2024 End: 20-58-6707qp contrast (will be provided with radiology test) [...] guidelines link. 1 Each 03/17/2024 05/18/2024 DiscontinuedStart: 34-85-4114dm contrast (will be provided with radiology test) [...] solution (9 sources)Nonsteroidal Anti-inflammatory Drug, Cyclooxygenase InhibitorStart: 51-29-9318zviq 2 drop(s) into the eye(s) twice dailyketorolac (ACULAR) 0.5 % ophthalmic solution INSTILL 2 DROPS INTO AFFECTED EYE TWICE DAILY 10/01/2022 Activeloratadine 10 mg oral tablet (20 sources)Loratadine (CLARITIN PO) Take 10 mg by mouth ActivemetOLazone 5 mg oral tablet (20 sources)Thiazide-like DiureticStart: 11-13-2024 End: 25-83-3470xlwm 1 tablet by mouth once dailymetOLazone (ZAROXOLYN) 5 mg tablet Indications: Anasarca Take 1 tablet by mouth once daily. 90 tablet 11/13/2024 ActiveStart: 08-21-2024 End: 24-16-6932eaji 1 tablet by mouth once dailymetOLazone (ZAROXOLYN) 5 mg tablet Take 1 tablet by mouth once daily. 30 tablet 08/21/2024 09/04/2024 Exuctcfrbbbc60 hr mirabegron 50 mg extended release oral tablet (20 sources)beta3-Adrenergic AgonistStart: 01-26-2025 End: 18-86-1582gobt 1 tablet by mouth once dailyStart: 12-15-2024 End: 60-12-2742yaqp 1 tablet by mouth once daily in [...] 1 tablet by mouth every morning . ActiveOmega 3 (11 sources)Estillfork 3 ActiveOmega-3 Fatty Acids (4 sources)Start: 68-22-0161ichm 500 mg by mouth once dailyOmega-3 Fatty Acids Active 500 MG PO Daily August 13, 2023 1:00amOmega-3 Fatty Acids 500 mg capsule (3 sources)Start: 91-42-8618knvk 1 capsule by mouth once dailyStart: 08-13-2023 take 1 capsule by mouth once dailyOmega-3 Fatty Acids 500 mg capsule Active 500 MG PO Daily August 13, 2023 1:00am Complies with drug therapyStart: 87-73-3579lbwf 1 capsule by mouth once dailyOmega-3 Fatty Acids 500 mg capsule Active 500 MG PO Daily August 13, 2023 1:00amondansetron 4 mg disintegrating oral tablet (3 sources)Serotonin-3 Receptor AntagonistStart: 45-09-2193yqdk 1 tablet by mouth every eight hours as needed for nausea and vomitingpantoprazole 40 mg delayed release oral tablet (20 sources)Proton Pump InhibitorStart: 02-22-2025 End: 88-28-5329ncan 1 tablet by mouth once dailyStart: 07-23-2024 End: 84-75-5013abog 1 tablet by mouth once dailyPantoprazole 40 mg tablet,delayed release (DR/EC) Discontinued 40 MG PO Daily 90 90 3 July 23, 2024 12:00am November 24, 2024 4:40pmStart: 04-28-2024 End: 37-14-2580fxbr 1 tablet by mouth twice dailypantoprazole DR (PROTONIX) 40 mg tablet Take 1 tablet by mouth two times a day. 180 tablet 04/28/2024 10/14/2024 Discontinued (Duplicate Entry)microencapsulated potassium chloride 20 meq extended release oral tablet (20 sources)Start: 12-15-2024 End: 85-23-5531txyc 2 tablets by mouth three times dailypotassium chloride ER (KLOR-CON M20) 20 mEq tablet Indications: Hypokalemia Take 2 tablets by mouth three times a day. 540 tablet 12/15/2024 03/15/2025 ActiveStart: 09-04-2024 End: 58-06-5816ipmf 2 tablets by mouth three times dailypotassium chloride (K- TAB) 20 mEq TbER Indications: Recurrent 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 , Hypokalemia 2 tablets by ORAL/FEEDING TUBE route three times a day. 540 tablet 09/04/2024 12/03/2024 ExpiredStart: 05-20-2024 End: 71-76-4503qhou 2 tablets by mouth twice dailypotassium chloride ER (KLOR- CON M20) 20 mEq tablet Indications: Hypokalemia Take 2 tablets by mouthtwo times a day. 360 tablet 06/12/2024 09/04/2024 DiscontinuedStart: 01-15-2024 End: 10-43-3089kghy 1 tablet by mouth three times dailypotassium chloride ER (KLOR-CON) 20 mEq tablet Indications: Recurrent 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 Take 1 tablet by mouth three times a day. 270 tablet 01/15/2024 04/14/2024 ActiveStart: 12-26-2023 End: 81-10-4638fils 1 tablet by mouth twice dailypotassium chloride ER (KLOR- CON) 20 mEq tablet Take 1 tablet by mouth two times a day. 60 tablet 1 0 12/26/2023 01/15/2024 DiscontinuedStart: 11-29-2023 End: 80-10-0113ppzh 1 tablet by mouth once dailypotassium chloride [...] acetate 10 mg/ml ophthalmic suspension (9 sources)CorticosteroidStart: 48-99-8276okxntlvhJAZS acetate (PRED FORTE) 1 % ophthalmic suspension INSTILL 1 DROP INTO AFFECTED EYE INTO AFFECTED EYE 4 TIMES DAILY DIRECTED 10/01/2022 ActivepredniSONE 50 mg oral tablet (20 sources)Start: 30-70-8397zwjg 1 tablet by mouth once dailyStart: 08-13-2023 End: 62-97-8807Ozuxg: 46-19-1017zzasctKIDZ 20 MG 1 tablet Orally bid w/ food x 4 days then qd w/ food x 4 days for 8 days Jul, ActivequiNINE sulfate 324 mg oral capsule (20 sources)AntimalarialStart: 10-19-2024 End: 11-88-5637bbab 1 capsule by mouth twice dailyquiNINE 324 mg capsule Indications: Cramp and spasm Take 1 capsule by mouth two times a day. 180 cap roma 01/26/2025 ActiveStart: 09-24-2024 End: 16-69-0922ejhf 1 capsule by mouth every twelve hoursquiNINE 324 mg capsule Take 1 capsule by mouth every 12 hours. 09/24/2024 10/19/2024 DiscontinuedStart: 07-21-2024 End: 55-16-8001mrbo 1 capsule by mouth twice dailyquiNINE 324 mg capsule Indications: Muscle cramps Take 1 capsule by mouth two times a day. 60 capsule 2 07/21/2024 08/20/2024 Activetake 1 capsule by mouth every eight hoursquiNINE (Qualaquin) 324 MG capsule Take 324 mg by mouth every 8 (eight) hours Active spironolactone 100 mg oral tablet (20 sources)Aldosterone AntagonistStart: 59-30-5021zxcj 1 tablet by mouth once dailyStart: 12-07-2024 End: 18-27-4751osue 1 tablet by mouth once dailySpironolactone 25 mg tablet Discontinued 25 MG PO Daily 90 90 3 January 22, 2025 12:05pm April 09, 2025 4:06pmtorsemide 20 mg oral tablet (20 sources)Loop DiureticStart: 30-11-6784oqht 1 tablet by mouth once daily in the morningStart: 05-13-2024 End: 26-49-5702rlwt 1 tablet by mouth once dailytorsemide (DEMADEX) 100 mg tablet Indications: Recurrent 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 , Anasarca Take 1 tablet by mouth once daily. 90 tablet 1 11/13/2024 ActivetraZODone hydrochloride 100 mg oral tablet (17 sources)Serotonin Reuptake InhibitorStart: 09-04-2024 End: 30-56-2519ivzu 1 tablet by mouth once daily at bedtimetraZODone (DESYREL) 100 mg tablet Indications: Chronic insomnia Take 1 tablet by mouth daily at bedt christine. 30 tablet 2 09/04/2024 10/04/2024 Activevit A-vit C-vit J-dold-xhlfcp (EYE VITAMIN AND MINERALS) 7,160-113-100 fxyq-zj-kbuv Tab (4 sources)take 1 tablet by mouth once daily in the morningvit A-vit C-vit C-yuft-thkfln (EYE VITAMIN AND MINERALS) 7,160-113-100 ldkl-vx-ecvs Tab Take 1 tablet by mouth every morning . 0 Activevit A-vit C-vit Q-cbbq-adshtd 7,160-113-100 afvm-zo-bkes Tab (12 sources)take 1 tablet by mouth once daily in the morningvit A-vit C-vit U-vbsp-eqgfhn 7,160-113-100 sofg-sb-esux Tab Take 1 tablet by mouth every morning .Activetake 1 tablet by mouth once daily in the morningvit A-vit C-vit R-uswh-jjuzjo 7,160-113-100 nqwq-qc-lhqr Tab Take 1 tablet by mouth every morning .0 ActiveVitamin C Oral (1 source)take 1 tablet by mouth once daily in the morningASCORBATE CALCIUM (VITAMIN C ORAL) Take 1 tablet by mouth every morning . ActiveVit A 7,160 Unit- Vit C 113 Mg-Vit E 100 Aqvc-Gktf-Zhiwfk Tablet (2 sources)take 1 tablet by mouth once daily in the morningvit A-vit C-vit M-jtsr-gyeiyd (EYE VITAMIN AND MINERALS) 7,160-113-100 afrm-hh-hjbr Tab Take 1 tablet by mouth every morning . Activezolpidem tartrate 5 mg oral tablet (6 sources)gamma-Aminobutyric Acid-ergic AgonistStart: 12-02-2023 End: 12-02-2023 Completed/Discontinued Medications MedicationDrug Class(es)DatesSig (Normalized)Sig (Original)acetaminophen 500 mg oral tablet (20 sources)Start: 11-23-2023 End: 91-30-9361ggfd 2 tablets by mouth every six hoursacetaminophen (TYLENOL) 500 mg tablet Take 2 tablets by mouth every 6 hours. 11/23/2023 05/18/2024 D iscontinuedalbuterol 0.833 mg/ml / ipratropium bromide 0.167 mg/ml inhalation solution (20 sources)Anticholinergic, beta2-Adrenergic AgonistStart: 11-23-2023 End: 98-56-3368dcdj 3 mL by inhalation every six hours as neededipratropium- albuterol (DUONEB) 0.5 mg-3 mg(2.5 mg base)/3 mL nebu Inhale 3 mL as instructed every 6hours as needed for wheezing/shortness of breath. 360 mL 11/23/2023 05/13/2024 Discontinuedamoxicillin 500 mg oral capsule (20 sources)Penicillin-class AntibacterialStart: 01-28-2024 End: 37-79-3328tyyncdebkrw (AMOXIL) 500 mg capsule 01/28/2024 11/19/2024 DiscontinuedStart: 45-64-1279dhealybweha (AMOXIL) 500 MG capsule Take 4 capsules one hour prior to dental procedure/cleaning . 4capsule 1 01/28/2024 Active amoxicillin 875 mg / clavulanate 125 mg oral tablet (17 sources)Penicillin-class AntibacterialStart: 08-19-2023 End: 66-97-7549nrtz 1 tablet by mouth every twelve hoursAmoxicillin-Pot Clavulanate 875-125 mg tablet Discontinued 1 TAB PO Every 12 hours 20 10 0 March 09, 2025 11:00pm April 01, 2025 8:00amtake 1 tablet by mouth in the morningamoxicillin-clavulanate (Augmentin) 875-125 MG tablet Take 1 tablet by mouth in the morning and 1 tablet before bedtime. Activeamylase 790740 unt / lipase 51062 unt / protease [id number] unt delayed release oral capsule (9 sources)Start: 06-12-2024 End: 89-20-9403dtyu 2 capsules by mouth three times daily at mealtime sbulnz-feltbbva-kpgsqcm (CREON) 36,000-114,000- 180,000 unit delayed release capsule Indications: Exocrine pancreatic insufficiency Take 2 capsules by mouth three times a day with meals. 200 capsule 1 06/12/2024 07/21/2024 Discontinued azithromycin 250 mg oral tablet (20 sources)Macrolide AntimicrobialStart: 03-11-2024 End: 61-40-9686Nwodzdcosrvp 250 mg tablet Discontinued 250 MG PO As Directed 6 5 0 July 14, 2024 5:10pm 2024 1:30pmStart: 42-13-1408Mnjjoubtfcel 250 MG as directed Orally daily for 5 days May, Not-Taking/PRNbudesonide 3 mg delayed release oral capsule (20 sources)CorticosteroidStart: 04-30-2024 End: 57-92-0524givu 3 capsules by mouth once daily, then [...] mg oral tablet (20 sources)Start: 12-26-2023 End: 88-77-8561kgim 1 tablet by mouth twice dailycalcium carbonate (OS-ELIZABETH 500) 500 mg calcium (1,250 mg) tablet Take 1 tablet by mouth two times a day. 180 tablet 12/26/2023 05/13/2024 IfsozbqcejrhKCFTCNL-FVLUAYGHX-CJIC ORAL (18 sources) End: 99-72-8506GBHYICT-MAGNESIUM-ZINC ORAL Take by mouth. 05/18/2024 RneuxssdrfuqMDYMJGF-NMSSHLYLU-LTMX ORAL Take by mouth. Activefamotidine 20 mg oral tablet (20 sources)Histamine-2 Receptor AntagonistStart: 02-22-2025 End: 53-65-4937aien 1 tablet by mouth once daily at bedtimeFamotidine 20 mg tablet Discontinued 20 MG PO Daily at bedtime 30 30 0 February 22, 2025 3:23pm February 22, 2025 3:26pmStart: 11-13-2024 End: 67-40-2297kyfp 1 tablet by mouth twice dailyFamotidine 20 mg tablet Discontinued 20 MG PO Twice daily 60 30 0 November 23, 2024 11:00pm February 22, 2025 3:24pmfluticasone propionate 0.05 mg/actuat metered dose nasal spray (5 sources)CorticosteroidStart: 12-26-2023 End: 48-71-9027mjfb 2 spray(s) nasal route once daily at bedtimefluticasone (FLONASE) 50 mcg/actuation nasal spray Use 2 Sprays in each nostril daily at bedtime. 16 g 1 12/26/2023 01/15/2024 DiscontinuedFluticasone Propion-Salmeterol (20 sources)Corticosteroid, beta2-Adrenergic AgonistStart: 08-08-2023 End: 92-24-6981jcyz 1 dose by mouth every twelve hoursFluticasone Propion- Salmeterol 100-50 mcg/dose blister with device Discontinued 0 .ROUTE .COMPLEX 60 1 August 08, 2023 9:43am August 13, 2023 11:21am INHALE 1 DOSE BY MOUTH EVERY 12 HOURSStart: 08-08-2023 End: 24-14-8162mabd 1 dose by mouth every twelve hoursFluticasone Propion- Salmeterol 100-50 mcg/dose blister with device Discontinued 0 .ROUTE .COMPLEX 60 1 August 08, 2023 10:43am August 13, 2023 12:21pm INHALE 1 DOSE BY MOUTH EVERY 12 HOURSStart: 08-08-2023 End: 70-98-6612jxmp 1 dose by mouth every twelve hoursFluticasone Propion- Salmeterol 100-50 mcg/dose blister with device Discontinued 0 .ROUTE .COMPLEX 60 August 08, 2023 10:43am August 13, 2023 12:21pm INHALE 1 DOSE BY MOUTH EVERY 12 HOURSStart: 08-08-2023 End: 92-14-2197yudi 1 dose by mouth every twelve hoursFluticasone Propion- Salmeterol Discontinued 0 .ROUTE .COMPLEX 60 August 08, 2023 10:43am Februar 2023 12:21pm INHALE 1 DOSE BY MOUTH EVERY 12 HOURSStart: 08-07-2023 End: 32-46-6703icfn 1 puff(s) by inhalation every twelve hoursFluticasone Propion-Salmeterol 115-21 mcg/actuation HFA aerosol inhaler Discontinued 2 PUFF INHALATION Every 12 hours 12 30 1 August 07, 2023 9:58am August 08, 2023 9:43amStart: 08-07-2023 End: 74-89-6499zdbm 1 puff(s) by inhalation every twelve hoursFluticasone Propion-Salmeterol 115-21 mcg/actuation HFA aerosol inhaler Discontinued 2 PUFF INHALATION Every 12 hours August 07, 2023 10:58am August 08, 2023 10:43amStart: 08-07-2023 End: 56-93-6343ffje 1 puff(s) by inhalation every twelve hoursFluticasone Propion-Salmeterol 115-21 mcg/actuation HFA aerosol inhaler Discontinued 2 PUFF INHALATION Every 12 hours 06 15August 07, 2023 10:58am August 08, 2023 10:43amStart: 08-07-2023 End: 55-66-4538qdyf 1 puff(s) by inhalation every twelve hoursFluticasone Propion-Salmeterol Discontinued 2 PUFF INHALATION Every 12 hours 06 15August 07, 2023 10:58am August 08, 2023 10:43amStart: 08-06-2023 End: 22-87-4146djkf 1 puff(s) by inhalation every twelve hoursFluticasone Propion-Salmeterol 115-21 mcg/actuation HFA aerosol inhaler Discontinued 2 PUFF INHALATION Every 12 hours August 06, 2023 12:00am August 07, 2023 9:58amStart: 08-06-2023 End: 68-78-5179bjrs 1 puff(s) by inhalation every twelve hoursFluticasone Propion-Salmeterol 115-21 mcg/actuation HFA aerosol inhaler Discontinued 2 PUFF INHALATION Every 12 hours August 06, 2023 1:00am August 07, 2023 10:58amStart: 08-06-2023 End: 04-45-1522efpp 1 puff(s) by inhalation every twelve hoursFluticasone Propion-Salmeterol 115-21 mcg/actuation HFA aerosol inhaler Discontinued 2 PUFF INHALATION Every 12 hours 06 15August 06, 2023 1:00am August 07, 2023 10:58amStart: 08-06-2023 End: 35-63-5555xifx 1 puff(s) by inhalation every twelve hoursFluticasone Propion-Salmeterol Discontinued 2 PUFF INHALATION Every 12 hours 12 August 06, 2023 1:00am August 07, 2023 10:58amfurosemide 40 mg oral tablet (20 sources)Loop DiureticStart: 12-27-2023 End: 97-76-4350uejc 1 tablet by mouth once dailyfurosemide (LASIX) 80 mg tablet Indications: Recurrent 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 Take 1 tablet by mouth once daily. 90 tablet 02/12/2024 05/13/2024 DiscontinuedStart: 12-26-2023 End: 10-00-7339kgyk 1 tablet by mouth once daily in the eveningfurosemide (LASIX) 40 mg tablet Indications: Recurrent 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 Take 1 tablet by mouth once daily. At 2 pm 90 tablet 02/12/2024 05/13/2024 Discontinued Start: 11-29-2023 End: 83-28-6292wxrc 1 tablet by mouth once dailyfurosemide (LASIX) 20 mg tablet Take 1 tablet by mouth once daily for 5 days. 5 tablet 0 /04/2024 Discontinuedhydroxychloroquine sulfate 200 mg oral tablet (20 sources)Antimalarial, Antirheumatic AgentStart: 02-12-2024 End: 67-05-6756tami 1 tablet by mouth twice dailyhydrOXYchloroQUINE (PLAQUENIL) 200 mg tablet Indications: Recurrent 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 Take 1 tablet by mouth two times a day. 180 tablet 02/12/2024 05/13/2024 DiscontinuedStart: 12-27-2023 End: 70-55-3359qbnr 1 tablet by mouth oncehydrOXYchloroQUINE (PLAQUENIL) 200 mg tablet Indications: Recurrent 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 , Pleural effusion Take 1 tablet by mouth every afternoon. 90 tablet 02/12/2024 02/12/2024 Discontinued lidocaine 0.04 mg/mg medicated patch (11 sources)Antiarrhythmic, Amide Local AnestheticStart: 11-24-2023 End: 49-68-8629tpvgm 1 dose transdermal route once dailylidocaine (SALONPAS) 4 % patch Apply 1 Patch as directed once daily. 0 11/24/2023 12/20/2023 Discontinued losartan potassium 25 mg oral tablet (20 sources)Angiotensin 2 Receptor BlockerStart: 12-23-2023 End: 82-88-5688icqecvhm (COZAAR) 25 mg tablet Take 1 tablet by mouth once daily. Patient should start on December 23, 2023. 0 12/23/2023 12/26/2023 DiscontinuedStart: 04-54-4113sjthfngq (COZAAR) 25 mg tablet Take 1 tablet by mouth once daily. Patient should start on December 23, 2023. 0 12/23/2023 SuspendedStart: 12-23-2023 losartan (COZAAR) 25 mg tablet Take 1 tablet by mouth once daily. Patient should start on December 23, 2023. 0 12/23/2023 ActiveStart: 35-73-6672xcxbqazt (COZAAR) 25 mg tablet Take 1 tablet by mouth once daily. Patient should start on December 22. 0 12/23/2023 ActiveStart: 79-92-6399idyfhplv (COZAAR) 25 mg tablet Take 1 tablet by mouth once daily. Patient should start on December 23, 2023. 0 12/23/2023 ActiveStart: 51-53-1216wxzwuwel (COZAAR) 25 mg tablet Take 1 tablet by mouth once daily. Patient should start on December 23, 2023. 0 12/23/2023 ActiveStart: 19-96-1444gwpivsdy (COZAAR) 25 mg tablet Take 1 tablet by mouth once daily. Patient should start on December 23, 2023. 0 12/23/2023 ActiveStart: 12-23-2023 losartan (COZAAR) 25 mg tablet Take 1 tablet by mouth once daily. Patient should start on December 23, 2023. 0 12/23/2023 ActiveStart: 34-78-2611gxqpital (COZAAR) 25 mg tablet Take 1 tablet by mouth once daily. Patient should start on December 22 24. 0 12/23/2023 ActiveStart: 2023 End: 60-67-8409objq 1 tablet by mouth once dailyLosartan 25 mg tablet Discontinued 25 MG PO Daily August 13, 2023 12:00am November 24, 2024 4:40pm magnesium oxide 400 mg oral tablet (20 sources)Start: 12-26-2023 End: 58-69-1355zeto 1 tablet by mouth twice dailymagnesium oxide (MAG-OX) 400 mg (241.3 mg magnesium) tablet Take 1 tablet by mouth two times a day.60 tablet 01/27/2024 05/13/2024 Discontinuedmeloxicam 15 mg oral tablet (20 sources)Nonsteroidal Anti-inflammatory DrugStart: 07-20-2020 End: 51-64-3835azuy 1 tablet by mouth once dailyMeloxicam 15 mg tablet Discontinued 15 MG PO Daily August 13, 2023 12:00am November 24, 2024 4:40pm Start: 02-25-2017 End: 53-30-6108vujs 1 tablet by mouth twice daily as needed for painmeloxicam (MOBIC) 7.5 MG tablet Take 1 (one) tablet (7.5 mg total) by mouth 2 (two) times a day as needed for pain. 180 tablet 3 02/25/2017 02/25/2018 ActiveStart: 01-29-2017 End: 84-58-5149kbty 0.5 tablet by mouth twice dailymeloxicam (MOBIC) 15 MG tablet Indications: Status post total right knee replacement Take 0.5 (one-half) tablet (7.5 mg total) by mouth 2 (two) times a day. 180 tablet 3 01/29/2017 01/29/2018 Active End: 64-35-6673hqeg 1-2 tablets by mouth once daily as neededmeloxicam (MOBIC) 7.5 MG tablet Take 7.5 mg by mouth daily 1-2 tabs prn . 0 07/20/2020 Discontinuedmetoprolol tartrate 25 mg oral tablet (12 sources)beta-Adrenergic BlockerStart: 11-23-2023 End: 17-01-4460fygs 1 tablet by mouth every twelve hoursmetoprolol tartrate, short acting, (LOPRESSOR) 25 mg tablet Take 1 tablet by mouth every 12 hours. M etoprolol was prescribed to prevent atrial fibrillation after thoracic surgery. Stop this medication after 30 days. 60 tablet 0 11/23/2023 12/26/2023 Discontinuedmontelukast 10 mg oral tablet (5 sources)Leukotriene Receptor AntagonistStart: 12-27-2023 End: 27-92-5918sgvl 1 tablet by mouth once dailymontelukast (SINGULAIR) 10 mg tablet Take 1 tablet by mouth once daily. 30 tablet 1 12/27/2023 01/15/2024 Discontinuedmupirocin 0.02 mg/mg topical ointment (18 sources)RNA Synthetase Inhibitor AntibacterialStart: 11-24-2024 End: 44-75-2074Pbjkobzvu 2 % ointment Discontinued 1 APPLIC TOPICAL Twice daily 22 30 5 December 17, 2024 4:57pm March 10, 2025 4:41pmStart: 11-12-2023 mupirocin (BACTROBAN) 2 % ointment Apply a small amount in each nostril using a cotton swab twice the day before surgery and once the morning of surgery. 22 g 0 11/12/2023 ActiveStart: 30-05-3788Zpstsxbdv 2 % 1 application Externally Twice a day for 7 days Jun, Not-Taking/PRNNebulizer and Compressor For Neb (INNOSPIRE ESSENCE) (12 sources)Start: 11-23-2023 End: 66-34-9626Vwyyjqdpr and Compressor For Neb (INNOSPIRE ESSENCE) 1 Each four times daily. 1 Each 0 11/23/2023 12/26/2023 DiscontinuedStart: 11-23-2023 End: 23-29-0925Uvqysznnd and Compressor For Neb (INNOSPIRE ESSENCE) 1 Each four times daily. 1 Each 0 11/23/2023 02/21/2024 SuspendedStart: 11-23-2023 End: 08-80-4608Luxjxrmjx and Compressor For Neb (INNOSPIRE ESSENCE) 1 Each four times daily. 1 Each 0 11/23/2023 02/21/2024 Activeomeprazole 40 mg delayed release oral capsule (20 sources)Proton Pump InhibitorStart: 07-20-2024 End: 74-15-8506xurh 1 capsule by mouth once dailyOmeprazole 40 mg capsule,delayed release(DR/EC) Discontinued 40 MG PO Daily 90 90 3 July 20, 2024 9:20pm July 23, 2024 9:20pmStart: 12-12-2023 End: 04-85-7123Akubvghpfn 20 mg capsule,delayed release(DR/EC) Discontinued 0 .ROUTE .COMPLEX 90 3 December 1144:53pm July 20, 2024 9:21pm TAKE 1 CAPSULE DAILY ON AN EMPTY STOMACH, FOLLOWED IN 30 MINUTES BY BREAKFASTStart: 54-67-6990btnv 1 capsule by mouth once daily as neededOmeprazole 20MG Omeprazole 20MG, 1 (one) Capsule Capsule daily on empty stomach followed in 30 minutes by bkfst # 0, 12/22/2021, No Refill. Active Oral daily on empty stomach followed in 30 minutes by bkt for 0 *Pick strength-form from [employer] for eRX* Dec, Not-Taking/PRNStart: 09-28-2020 End: 33-85-6930hoaj 1 capsule by mouth once dailyOmeprazole 20 mg capsule,delayed release(DR/EC) Discontinued 20 MG PO Daily October 20, 2020 11:00pm December 12, 2023 8:40amStart: 30-39-7379syty 2 capsules by mouth twice daily omeprazole (PRILOSEC) 20 mg capsule Take 40 mg by mouth two times a day. 0 09/28/2020 ActiveOmeprazole 20 mg capsule,delayed release(DR/EC) (1 source)Start: 12-12-2023 End: 20-90-4180Fnfzhbvvck 20 mg capsule,delayed release(DR/EC) Discontinued 0 .ROUTE .COMPLEX 90 December 12, 2023 5:53pm July 20, 2024 10:21pm TAKE 1 CAPSULE DAILY ON AN EMPTY STOMACH, FOLLOWED IN 30 MINUTES BYBREAKFASToxyCODONE hydrochloride 5 mg oral tablet (4 sources)Opioid AgonistStart: 11-23-2023 End: 86-23-2359bevk 1 tablet by mouth every six hours as neededoxyCODONE IR (ROXICODONE) 5 mg immediate release tablet Indications: Pleural effusion , Postoperative pain Take 1 tablet by mouth every 6 hours as needed for up to 7 days. 28 tablet 0 11/23/2023 11/30/2023 Expiredpolyethylene glycol 3350 97205 mg powder for oral solution (4 sources)Osmotic LaxativeStart: 11-24-2023 End: 83-03-9038gbfhsjzulamd glycol 3350 17 gram packet Take 1 Packet by mouth once daily for 7 days. Dissolve dosein 4 - 8 ounces of liquid and take as directed. 7 Packet 0 11/24/2023 12/01/2023 ExpiredraNITIdine 300 mg oral tablet (18 sources)Histamine-2 Receptor AntagonistStart: 10-21-2020 End: 44-48-0126vubu 1 tablet by mouth once dailyRanitidine Hcl 300 mg Tablet Discontinued 300 MG PO Daily October 20, 2020 11:00pm August 1320230617:21am Ranitidine HCl Activesildenafil 100 mg oral tablet (11 sources)Phosphodiesterase 5 InhibitorStart: 83-95-8785Laigogckbi Citrate 100MG Sildenafil Citrate 100MG, 1 (one) Tablet 1 PO PRN ED # 6, 01/03/2022, Ref. x5. Active Oral 1 PO PRN ED for 30 *Pick strength-form from [employer] for eRX* Dec, Not-Taking/PRNsucralfate 1000 mg oral tablet (16 sources)Aluminum ComplexStart: 12-15-2024 End: 11-74-6448wtqb 1 tablet by mouth four times dailysucralfate (CARAFATE) 1 gram tablet Indications: Hiatal hernia Take 1 tablet by mouth four times daily. 120 tablet 2 12/15/2024 01/14/2025 ExpiredStart: 04-28-2024 End: 58-87-8014ygav 1 tablet by mouth twice dailysucralfate (CARAFATE) 1 gram tablet Take 1 tablet by mouth two times a day. 60 tablet 04/28/2024 05/28/2024 Expiredtamsulosin hydrochloride 0.4 mg oral capsule (20 sources)alpha-Adrenergic BlockerStart: 10-21-2020 End: 85-53-8811ioij 1 capsule by mouth once dailyTamsulosin 0.4 mg Capsule Discontinued 0.4 MG PO Daily October 20, 2020 11:00pm November 24, 2024 4:42pm Problems Active Problems Problem ClassificationProblemDateDocumented DateEpisodic/ChronicAbdominal hernia (2 sources)Hiatal hernia; Translations: [Diaphragmatic hernia without obstruction or gangrene]08-32-0761LgphnrhpIgheehbw foot deformities (6 sources)Toe joint rigid; Translations: [Hallux rigidus, left foot]Onset: 37-60-7520PllaafzZdfzq bronchitis (1 source)Acute bronchitis due to other specified organismsEpisodicCataract (16 sources)After-cataract of bilateral eyes; Translations: [Other secondary cataract, bilateral]Onset: 337077-35-7927YiabxghMdbnmow kidney disease (11 sources)Chronic kidney disease stage 3A ; Translations: [Stage 3a chronic kidney disease (HCC)]Onset: 665854-72-8807UalrjvaBxmevlq kidney disease (2 sources)Chronic kidney disease; Translations: [Stage 3a chronic kidney disease (HCC)]Onset: 94-19-4277Meufgwz obstructive pulmonary disease and bronchiectasis (2 sources)Unspecified chronic bronchitis; Translations: [Chronic bronchitis] Onset: 047462-65-3451EbvqqerYmqgevt ulcer of skin (6 sources)Pressure ulcer of other site, stage 2; Translations: [Pressure ulcer, other site]16-99-8919XqmpjvkGdsdpotgqp and other anemia (7 sources)Anemia; Translations: [Anemia, unspecified]50-23-1830Vhnwmzgt Deficiency and other anemia (1 source)Anemia, unspecified; Translations: [Anemia, unspecified type]Onset: 53-61-3629KtwkyzepHeocuxdp of white blood cells (18 sources)Leukocytosis; Translations: [Elevated white blood cell count, unspecified]Onset: 393864-89-1010GfmnvwoLjmszzpzt of lipid metabolism (20 sources)Hyperlipidemia; Translations: [Hyperlipidemia, unspecified]Onset: 190243-93-0089DkxbjthDxcfdbxrmmfdhn and diverticulitis (11 sources)Diverticulosis of sigmoid colon; Translations: [Diverticulosis of large intestine without perforation or abscess without bleeding]Chronic Esophageal disorders (20 sources)Gastroesophageal reflux disease; Translations: [Gastro-esophageal reflux disease without esophagitis]Onset: 794145-68-9855TytgoisFbwbbojhs hypertension (20 sources)Essential hypertension; Translations: [Essential (primary) hypertension]Onset: 82-64-7500SnfvwwvWtarmyium and duodenitis (1 source)Chronic gastritis; Translations: [Unspecified chronic gastritis without bleeding]61-13-4346QiuwlaxQhfdubrhqazfeouc hemorrhage (20 sources)Blood-tinged feces; Translations: [Melena]70-38-9638HuulpsezYbekkis on above:Problem List clean-up per request of Phys. EHR CmteGenitourinary symptoms and ill-defined conditions (2 sources)Urge incontinence of urine; Translations: [Urge incontinence] 35-16-9708ApjqoevNewpm valve disorders (4 sources)Cardiac murmur, unspecified; Translations: [Undiagnosed cardiac murmurs]00-02-0654TcohtfyiGgkskltzner (11 sources)Hemorrhoids; Translations: [Unspecified hemorrhoids]Episodic Hyperplasia of prostate (11 sources)Lower urinary tract symptoms due to benign prostatic hypertrophy; Translations: [Benign prostatic hyperplasia with lower urinary tract symptoms] ChronicMalaise and fatigue (2 sources)Other fatigue; Translations: [Fatigue]EpisodicMiscellaneous mental health disorders (4 sources)Chronic insomnia; Translations: [Psychophysiologic insomnia] 51-36-5932KpbysgfUpigbxx (1 source)Onychomycosis due to dermatophyte ; Translations: [Tinea unguium] 70-59-2548GscluvlmZiouab and vomiting (15 sources)Nausea and vomiting; Translations: [Nausea with vomiting, unspecified]Onset: 231477-08-8189AdhtrhdyUduouaumymnij gastroenteritis (20 sources)Lymphocytic colitis; Translations: [Other and unspecified noninfectious gastroenteritis and colitis]Onset: 313222-19-5234BszbiyfEoer wounds of head; neck; and trunk (1 source)Laceration without foreign body of scalp, initial encounterEpisodic Osteoarthritis (20 sources)Unilateral primary osteoarthritis, left knee; Translations: [Osteoarthritis of knee]Onset: 906897-37-0670XecwmdzAwvvfvsamaghts (6 sources)Osteoarthritis of left knee joint; Translations: [Osteoarthritis of left knee]Onset: Other aftercare (1 source)Other intermediate designer (current) drug therapyEpisodicOther aftercare (5 sources)Surgical follow-up; Translations: [Encounter for follow-up examination after completed treatment for conditions other than malignant neoplasm]90-67-5110ZdavyyoxSxkee aftercare (2 sources)Follow-up status; Translations: [Encounter for follow-up examination after completed treatment for conditions other than malignant neoplasm] 50-52-7967SrurzsvmIvykw circulatory disease (1 source)Elevated blood-pressure reading, without diagnosis of hypertension EpisodicOther circulatory disease (1 source)Orthostatic hypotension; Translations: [Orthostatic hypotension] 76-81-4533LvqyvkarQywio connective tissue disease (20 sources)History of total knee arthroplasty; Translations: [Presence of artificial knee joint, bilateral]Onset: 955752-30-0576SbldpchYmyss connective tissue disease (1 source)Metatarsalgia of left foot; Translations: [Metatarsalgia, left foot] 83-00-0195UlmbhbhzIirnf connective tissue disease (2 sources)Cramp; Translations: [Cramp and spasm]11-34-9704QiwslxlqAkxts connective tissue disease (4 sources)Spasm; Translations: [Cramp and spasm]12-92-2198AnvydbvqHwjxc connective tissue disease (6 sources)Pain of toe of left foot; Translations: [Pain in left toe(s)] 88-27-9759MbmmvhvrXliwk connective tissue disease (2 sources)Pain in toe; Translations: [Pain in right toe(s)]79-34-8753Uzchyqdd Other diseases of veins and lymphatics (2 sources)Disorder of vein of lower extremity; Translations: [Venous insufficiency (chronic) (peripheral)]77-87-2542OkmthleaBhvyd ear and sense organ disorders (3 sources)Impacted cerumen; Translations: [Impacted cerumen, unspecified ear] 11-76-7251QtszxibpWocyj gastrointestinal disorders (17 sources)Dysphagia; Translations: [Dysphagia, unspecified]39-67-1860Xzzldsxq Comment on above:Problem List clean-up per request of Phys. EHR CmteOther gastrointestinal disorders (1 source)Dysphagia, unspecified; Translations: [Dysphagia]EpisodicOther gastrointestinal disorders (4 sources)Diarrhea; Translations: [Diarrhea, unspecified]01-08-2635Lxriilwx Other gastrointestinal disorders (9 sources)Ascites; Translations: [Other ascites]87-01-6834XvvycvwjLghzt gastrointestinal disorders (2 sources)Other ascites; Translations: [Other ascites]Onset: 69-60-2039Njfxsotf Other hematologic conditions (1 source)Elevated erythrocyte sedimentation rate; Translations: [Elevated sed rate]Onset: 53-21-6099NkimohaoEllhe injuries and conditions due to external causes (1 source)Other injury of unspecified body region, initial encounter; Translations: [Bruising]Onset: 39-56-7806XbxhvvqsMerpu liver diseases (4 sources)Cirrhosis of liver; Translations: [Unspecified cirrhosis of liver] 78-79-0468DovcqoyAzlcb liver diseases (1 source)Unspecified cirrhosis of liver; Translations: [Cirrhosis of liver without ascites, unspecified hepatic cirrhosis type (HCC)]Onset: 11-12-2024 ChronicOther liver diseases (8 sources)Alkaline phosphatase raised; Translations: [Abnormal levels of other serum enzymes]74-24-4317NtqxjvefAlyen liver diseases (4 sources)Large liver; Translations: [Hepatomegaly, not elsewhere classified] 98-38-0205KbjxinfpZvmdx lower respiratory disease (5 sources)Interstitial lung disease; Translations: [Interstitial pulmonary disease, unspecified]70-96-9858FyjoxcmOaieb lower respiratory disease (3 sources)Interstitial pulmonary disease, unspecified; Translations: [Interstitial pulmonary disease (HCC)]Onset: 49-19-2829PbhakedZkxgv lower respiratory disease (19 sources)Cough; Translations: [Cough, unspecified]Onset: EpisodicOther lower respiratory disease (4 sources)Other forms of dyspnea; Translations: [Other respiratory abnormalities]84-88-9911LcjcphysWlhex lower respiratory disease (3 sources)Viral respiratory infection; Translations: [Other specified respiratory disorders]27-09-4668EynbgmxrQsiqu lower respiratory disease (3 sources)Cough; Translations: [Subacute cough]63-80-0644PcncqlijDnrot lower respiratory disease (1 source)Other specified respiratory disorders; Translations: [Unspecified viral infection]82-91-0227ElvuozpiTklxk lower respiratory disease (5 sources)Peripheral cyanosis; Translations: [Cyanosis]69-83-7514CthhbgzuAvotx male genital disorders (10 sources)Impotence of organic [...] [Lesion of plantar nerve, left lower limb]Onset: 14-79-7747FhmrgjlWihwq nervous system disorders (1 source)Metabolic encephalopathy; Translations: [Metabolic encephalopathy] 62-35-8334ChrbxmrRgmdl nervous system disorders (6 sources)Difficulty walking; Translations: [Difficulty in walking, not elsewhere classified]34-14-5013CvaulttZufvv non-traumatic joint disorders (2 sources)Pain in left knee; Translations: [Pain in left knee]Onset: 01-16-2023 EpisodicOther nutritional; endocrine; and metabolic disorders (18 sources)Obesity; Translations: [Obesity, unspecified]Onset: 08-23-2014 30-73-7098UuxyoutIzdaa nutritional; endocrine; and metabolic disorders (8 sources)Body [...] sources)Obese class I; Translations: [Obesity, unspecified]Onset: 10-25-2023 79-61-7947EiqwrmnMkwxv nutritional; endocrine; and metabolic disorders (6 sources)Hypomagnesemia; Translations: [Hypomagnesemia]77-39-8668TechwroRogkz nutritional; endocrine; and metabolic disorders (1 source)Obesity, unspecified; Translations: [Obesity, Class I, BMI 30-34.9] Onset: 39-61-7384EnldbmjZhzsr nutritional; endocrine; and metabolic disorders (1 source)Hypomagnesemia; Translations: [Hypomagnesemia]Onset: 66-57-5946Jsvxnbw Other screening for suspected conditions (not mental disorders or infectious disease) (20 sources)Encounter for screening for malignant neoplasm of prostate; Translations: [Elevated C-reactive protein]Onset: 25-67-4634JyqddqqiXgfbv skin disorders (2 sources)Actinic keratosis; Translations: [Actinic keratosis]08-27-2024 EpisodicOther skin disorders (2 sources)Seborrheic keratosis; Translations: [Other seborrheic keratosis] 98-38-6990FuksfjxoIegza skin disorders (2 sources)Lentiginosis; Translations: [Other melanin hyperpigmentation] 19-50-2641ZvrwnrdrVbfix skin disorders (1 source)Dystrophia unguium; Translations: [Nail dystrophy]15-89-3367Zdodthrm Pancreatic disorders (not diabetes) (1 source)Exocrine pancreatic insufficiency; Translations: [Exocrine pancreatic insufficiency]01-45-7623ZuvuewlaVayi-; endo-; and myocarditis; cardiomyopathy (except that caused by tuberculosis or sexually transmitted disease) (19 sources)Pericardial effusion; Translations: [Pericardial effusion]Onset: 805785-85-1726UxbqgiuaAslgvkdp; pneumothorax; pulmonary collapse (20 sources)Pleural effusion; Translations: [Pleural effusion, not elsewhere classified]Onset: 614708-24-8285KydfhmrzEjmgtkes codes; unclassified (20 sources)Edema, generalized; Translations: [Generalized edema]Onset: 12-20-2023 Resolved: 264744-70-5176VkwtervaJicyjgpk codes; unclassified (1 source)Bilateral lower limb edema; Translations: [Localized edema]01-19-2024 EpisodicRetinal detachments; defects; vascular occlusion; and retinopathy (16 sources)Nonexudative age-related macular degeneration; Translations: [Nonexudative age-related macular degeneration, bilateral, early dry stage] Onset: 806800-34-0114TgehcixCdjw and subcutaneous tissue infections (10 sources)Cellulitis of left foot; Translations: [Cellulitis of left lower limb]90-25-2071RsekncafCpfkohex lupus erythematosus and connective tissue disorders (1 source)Connective tissue disease overlap syndrome; Translations: [Other overlap syndromes]62-17-7226QgyrzfmTibtkdrzgvlu (1 source)Established Patient Follow-UpOnset: 48-66-9060Cvszylllzknu (1 source)Cough, unspecified type; Translations: [Cough, unspecified type]Onset: 10-13-2024 Past or Other Problems Problem ClassificationProblemDateDocumented DateEpisodic/ChronicAbdominal pain (7 sources)Abdominal pain; Translations: [Unspecified abdominal pain]Onset: 874996-62-1161PwptdacqVjaci and unspecified renal failure (20 sources)Acute renal failure syndrome; Translations: [Acute kidney failure, unspecified]Onset: 122112-58-8024GnskykksCdrcw posthemorrhagic anemia (18 sources)Acute posthemorrhagic anemia; Translations: [Acute posthemorrhagic anemia]Onset: 797856-46-5927CsiftjkyPqiinubqgv disorders (4 sources)Esophageal disorders; Translations: [Gastro-esophageal reflux disease with esophagitis, without bleeding]Fluid and electrolyte disorders (4 sources)Hypokalemia; Translations: [Hypokalemia]Onset: EpisodicGenitourinary symptoms and ill-defined conditions (20 sources)Retention of urine; Translations: [Retention of urine, unspecified] Onset: 021092-36-6034MowphvgyMdymopdhpedu; infection of eye (except that caused by tuberculosis or sexually transmitteddisease) (16 sources)Blepharitis of upper and lower eyelids of bilateral eyes; Translations: [Unspecified blepharitis right eye, upper and lower eyelids]Onset: 015215-35-5550ZyjkmktgYpbac aftercare (2 sources)Encounter for follow-up examination after completed treatment for conditions other than malignant neoplasm; Translations: [Follow-up exam]Onset: 58-43-4251NlnnfkmsIvluk circulatory disease (20 sources)Raynaud's phenomenon; Translations: [Raynaud's syndrome without gangrene]Onset: 12-25-2023 Resolved: 952413-82-8199VuoeyvyAxzds circulatory disease (20 sources)History of pericarditis; Translations: [Personal history of other diseases of the circulatory system]Onset: 835849-37-6162VqmfnosjCwetg circulatory disease (1 source)Personal history of other diseases of the circulatory system; Translations: [History of pericarditis]Onset: 32-20-6680VclhjaxhPpcfp circulatory disease (1 source)Other specified symptoms and signs involving the circulatory and respiratory systems; Translations:[Poor perfusion of leg]Onset: 11-12-2024 EpisodicOther connective tissue disease (2 sources)Pain in right foot; Translations: [Pain in right foot]Onset: 58-98-6984PonnmcpvNppld connective tissue disease (2 sources)Pain in left foot; Translations: [Pain in left foot]Onset: 08-28-2022 EpisodicOther connective tissue disease (1 source)Other specified soft tissue disorders; Translations: [Leg swelling] Onset: 64-49-2922GnxynxppSkxcz eye disorders (16 sources)Dry eyes; Translations: [Dry eye syndrome of bilateral lacrimal glands]Onset: 918630-35-0086RejwjqlqZhtuf eye disorders (16 sources)Chalazion of left upper eyelid; Translations: [Chalazion left upper eyelid]Onset: 186660-69-6047FqyfefkuWxvoa gastrointestinal disorders (20 sources)Esophageal dysphagia; Translations: [Other dysphagia]Onset: 795194-20-8051ItloklimJpuds gastrointestinal disorders (1 source)Other dysphagia; Translations: [Esophageal dysphagia]Onset: 09-24-2024 EpisodicOther gastrointestinal disorders (1 source)Diarrhea, unspecified; Translations: [Diarrhea, unspecified type] Onset: 90-31-4577McowjqagDrgif hematologic conditions (20 sources)ESR raised; Translations: [Elevated erythrocyte sedimentation rate] Onset: 240555-87-9890ZwczolnqHfklb liver diseases (2 sources)Hepatomegaly, not elsewhere classified; Translations: [Hepatomegaly] Onset: 93-87-6172XamejtgzLzkqq liver diseases (2 sources)Abnormal levels of other serum enzymes; Translations: [Elevated alkaline phosphatase level]Onset: 40-76-3002PnbggoxmNltch lower respiratory disease (20 sources)Chronic cough; Translations: [Chronic cough]Onset: 03-17-2024 60-14-0022DjsslkaxSltij lower respiratory disease (20 sources)Nodule of lung; Translations: [Solitary pulmonary nodule]Onset: 152990-75-4781XdhdixwrNocep lower respiratory disease (1 source)Cyanosis; Translations: [Extremity cyanosis]Onset: 23-90-7428Tqxhmnwl Other nervous system disorders (20 sources)Postoperative pain ; Translations: [Other acute postprocedural pain] Onset: 480887-74-5808IqfrnetpPdvna upper respiratory disease (1 source)Other diseases of bronchus, not elsewhere classified; Translations: [Bronchiolar disease]Onset: 91-11-1855HmcqhalsDmlkiaisibh and intestinal abscess (2 sources)Serositis; Translations: [Other peritonitis]Onset: 10-23-2024 02-13-1140ZkaxyqdwSbcrcnpq codes; unclassified (2 sources)Generalized edema; Translations: [Anasarca]Onset: 14-47-7685Gqsbjkgc Unclassified (3 sources)Subacute cough R05.2Unclassified (1 source)Cough, unspecified; Translations: [Cough, unspecified]Onset: 49-66-1332Fnnnpsalpfsw (2 sources)Decreased BJY78-55-7582 Results Test NameValueInterpretationReference RangeFacilityBasophils Auto (Bld) [#/Vol] Ordered By: Yuli Mariscal on 63-15-9433Mcuarspiw (Bld) [#/Vol]0.1 10 3/uL0.0-0.1 [facility] HospitalBasophils/100 WBC Auto (Bld)Ordered By: Yuli Mariscal on 08-13-6389Pbrbwtpdl/100 WBC (Bld)0.6 %0.2-2.0[facility] HospitalEosinophils/100 WBC Auto (Bld)Ordered By: Yuli Mariscal on 49-38-6981Dwpqsaooqyx/100 WBC (Bld)0.0 %Low0.9-7.0[facility] HospitalErythrocyte distribution width Auto (RBC) [Ratio]Ordered By: Yuli Mariscal on 51-43-7242Vhxddrazcev distribution width (RBC) [Ratio]16.4 %High11.0-15.0 [facility] HospitalGlobulin Calc (S) [Mass/Vol]Ordered By: Yuli Mariscal on 60-47-2759Kefcqivo (S) [Mass/Vol]4.1 g/dLAultman HospitalGlomerular filtration rate (GFR) estimation in non- AmericanOrdered By: Yuli Mariscal on 53-58-3591DSV/1.73 sq M.predicted among non-blacks MDRD (S/P/Bld) [Vol rate/Area]29 mL/min/{1.73_m2}Low>=60 mL/min/1.73m 2FMercy Health Defiance HospitalHematocrit Auto (Bld) [Volume fraction]Ordered By: Yuli Mariscal on 08-34-8726Vntyjqaaez (Bld) [Volume fraction]33.8 %Low 42.0-54.0[facility] HospitalHemoglobin [Mass/volume] in Blood Ordered By: Yuli Mariscal on 45-47-1086Ewwqexhswz (Bld) [Mass/Vol]10.6 g/dLLow 14.0-18.0[facility] HospitalLaboratory - Chemistry and Chemistry - challengeOrdered By: Yuli Mariscal on 58-59-2261Dalbbkt [Mass/Vol]3.3 g/dLLow 3.4-5.0[facility] HospitalALP [Catalytic activity/Vol]102 U/L 46-116[facility] HospitalALT [Catalytic activity/Vol]21 U/L16-63 [facility] HospitalAST [Catalytic activity/Vol]9 U/OTic23-07 [facility] HospitalBilirubin [Mass/Vol]0.6 mg/dL0.2-1.0[facility] HospitalCalcium [Mass/Vol]8.9 mg/dL8.5-10.1FMercy Health Defiance HospitalChloride [Moles/Vol]99 mmol/S71-069LdranxjltAultman HospitalCO2 [Moles/Vol]27.7 mmol/L21.0-32.0[facility] Creatinine [Mass/Vol]2.21 mg/dLHigh0.70-1.30[facility] Ferritin [Mass/Vol]47.0 ng/mL26.0-388.0[facility] HospitalGFR/1.73 sq M.predicted MDRD (S/P/Bld) [Vol rate/Area]36 mL/min/{1.73_m2}Low>=60 mL/min/1.73m 2FMercy Health Defiance HospitalGlucose [Mass/Vol]89 mg/rC47-332 [facility] HospitalPotassium [Moles/Vol]5.0 mmol/L3.5-5.1FMercy Health Defiance HospitalProtein [Mass/Vol]7.4 g/dL6.4-8.2FMercy Health Lorain Hospitalodium [Moles/Vol]133 mmol/CUqy083-119XpxznwysrAultman HospitalUrea nitrogen [Mass/Vol]29.0 mg/dLHigh7.0-18.0[facility] HospitalUrea nitrogen/Creatinine [Mass ratio]13.1 mg/mgAultman HospitalLaboratory - Hematology and Cell countsOrdered By: Yuli Mariscal on 36-11-6389Jlmrsjgi granulocytes/100 WBC (Bld)0.9 %High0.0-0.5FMercy Health Defiance HospitalLeukocytes [#/volume] corrected for nucleated erythrocytes in Blood by Automated counOrdered By: Yuli Mariscal on 71-40-5324GIT corrected for nucl RBC Auto (Bld) [#/Vol]8.1 10 3/uL4.0-11.0[facility] Lymphocytes Auto (Bld) [#/Vol]Ordered By: Yuli Mariscal on 66-82-9112Isdgpsgrqta (Bld) [#/Vol]1.0 10 3/uLLow1.2-3.8[facility] Lymphocytes/100 WBC Auto (Bld)Ordered By: Yuli Mariscal on 04-19-2025 Lymphocytes/100 WBC (Bld)11.7 %Low20.5-60.0[facility] HospitalMCH Auto (RBC) [Entitic mass]Ordered By: Yuli Mariscal on 55-77-4368FXI (RBC) [Entitic mass]30.3 pg25.9-34.0[facility] HospitalMCHC Auto (RBC) [Mass/Vol]Ordered By: Yuli Mariscal on 26-58-8557IZOC (RBC) [Mass/Vol]31.4 g/dL 29.9-35.2FMercy Health Defiance HospitalMCV Auto (RBC) [Entitic vol]Ordered By: Yuli Mariscal on 83-51-2080QQE (RBC) [Entitic vol]96.6 qTOcae66.0-94.0 [facility] HospitalMonocytes Auto (Bld) [#/Vol]Ordered By: Yuli Mariscal on 71-37-7665Vngnuygjq (Bld) [#/Vol]1.1 10 3/uLHigh0.3-0.8 [facility] HospitalMonocytes/100 WBC Auto (Bld)Ordered By: Yuli Mariscal on 36-73-3232Aozreabcl/100 WBC (Bld)13.4 %High1.7-12.0[facility] HospitalNeutrophils Auto (Bld) [#/Vol]Ordered By: Yuli Mariscal on 08-12-0953Svjfqcbhlid (Bld) [#/Vol]6.0 10 3/uL1.4-6.5FMercy Health Defiance HospitalNeutrophils/100 WBC Auto (Bld)Ordered By: Yuli Mariscal on 21-45-0594Qyicltjdcxu/100 WBC (Bld)73.4 %43.0-75.0[facility] HospitalNo Panel InformationOrdered By: Yuli Mariscal on 29-22-5948A-Reactive Protein, Quantitative2.29 mg/dLHigh<=0.50[facility] Eosinophils # (Auto)0.0 10 3/uL0.0-0.7FMercy Health Defiance HospitalFolate 31.50 ng/mL8.60-58.90[facility] HospitalImmature Granulocyte # (Auto)0.07 10 3/uLHigh0.00-0.03[facility] HospitalPlatelet mean volume Auto (Bld) [Entitic vol]Ordered By: Yuli Mariscal on 19-53-3393Gxwkgfau mean volume (Bld) [Entitic vol]9.8 fL9.5-13.5FMercy Health Defiance Hospital Platelets Auto (Bld) [#/Vol]Ordered By: Yuli Mariscal on 27-59-5709Rycykhath (Bld) [#/Vol]319 10 3/oL168-469TubxaejhlAultman HospitalRBC Auto (Bld) [#/Vol]Ordered By: Yuli Mariscal on 33-63-9870VVX (Bld) [#/Vol]3.50 10 6/uLLow 4.70-6.10[facility] Medical Centererum or plasma albumin/globulin mass ratioOrdered By: Yuli Mariscal on 95-42-9613Kjpymdq/Globulin [Mass ratio]0.8 {ratio}[facility] Centererum or plasma anion gap determination Ordered By: Yuli Mariscal on 82-49-0164Blbmu gap [Moles/Vol]11.3 mmol/LFMercy Health Defiance HospitalCNPTOUTREACHon 04-33-5600KFFZRYKVVGLMLfnxccGuadqfqpy Clinic ClevelandBasophils Auto (Bld) [#/Vol]Ordered By: Yuli Mariscal on 95-22-0407Lwqovaowp (Bld) [#/Vol]0.0 10 3/uL0.0-0.1FMercy Health Defiance HospitalBasophils/100 WBC Auto (Bld)Ordered By: Yuli Mariscal on 04-12-2025 Basophils/100 WBC (Bld)0.5 %0.2-2.0[facility] Eosinophils/100 WBC Auto (Bld)Ordered By: Yuli Mariscal on 04-12-2025 Eosinophils/100 WBC (Bld)0.0 %Low0.9-7.0[facility] Erythrocyte distribution width Auto (RBC) [Ratio]Ordered By: Yuli Mariscal on 91-49-8371Iikmbczojvx distribution width (RBC) [Ratio]15.9 %High11.0-15.0 [facility] HospitalGlobulin Calc (S) [Mass/Vol]Ordered By: Yuli Mariscal on 67-25-5655Gojlfnzh (S) [Mass/Vol]4.1 g/dLAultman HospitalGlomerular filtration rate (GFR) estimation in non- AmericanOrdered By: Yuli Mariscal on 32-89-8861PFI/1.73 sq M.predicted among non-blacks MDRD (S/P/Bld) [Vol rate/Area]36 mL/min/{1.73_m2}Low>=60 mL/min/1.73m 2FMercy Health Defiance HospitalHematocrit Auto (Bld) [Volume fraction]Ordered By: Yuli Mariscal on 32-07-1825Yiqvlahazc (Bld) [Volume fraction]32.2 %Low 42.0-54.0[facility] HospitalHemoglobin [Mass/volume] in Blood Ordered By: Yuli Mariscal on 57-30-0193Tgfcamnwgh (Bld) [Mass/Vol]10.2 g/dLLow 14.0-18.0[facility] HospitalLaboratory - Chemistry and Chemistry - challengeOrdered By: Yuli Mariscal on 34-99-5393Hjhjsbc [Mass/Vol]2.8 g/dLLow 3.4-5.0[facility] HospitalALP [Catalytic activity/Vol]96 U/L46-116 [facility] HospitalALT [Catalytic activity/Vol]21 U/L16-63 [facility]AST [Catalytic activity/Vol]8 U/HTmz29-61 [facility] HospitalBilirubin [Mass/Vol]0.7 mg/dL0.2-1.0[facility] HospitalCalcium [Mass/Vol]8.8 mg/dL8.5-10.1FMercy Health Defiance HospitalChloride [Moles/Vol]105 mmol/A83-152PbuxysktdAultman HospitalCO2 [Moles/Vol]27.2 mmol/L21.0-32.0[facility] Creatinine [Mass/Vol]1.86 mg/dLHigh0.70-1.30[facility] GFR/1.73 sq M.predicted MDRD (S/P/Bld) [Vol rate/Area]43 mL/min/{1.73_m2}Low>=60 mL/min/1.73m 2FMercy Health Defiance HospitalGlucose [Mass/Vol]96 mg/lA42-294 [facility] HospitalMagnesium [Mass/Vol]1.7 mg/dLLow1.8-2.4 [facility] HospitalPotassium [Moles/Vol]4.5 mmol/L3.5-5.1FMercy Health Defiance HospitalProtein [Mass/Vol]6.9 g/dL6.4-8.2FMercy Health Lorain Hospitalodium [Moles/Vol]141 mmol/F992-271Qbntexdrg Regional Medical CenterUrea nitrogen [Mass/Vol]22.0 mg/dLHigh7.0-18.0[facility] HospitalUrea nitrogen/Creatinine [Mass ratio]11.8 mg/mgAultman HospitalLaboratory - Hematology and Cell countsOrdered By: Yuli Mariscal on 34-79-2479Oilfqtrt granulocytes/100 WBC (Bld)1.2 %High0.0-0.5FMercy Health Defiance HospitalLeukocytes [#/volume] corrected for nucleated erythrocytes in Blood by Automated counOrdered By: Yuli Mariscal on 94-09-9404YGM corrected for nucl RBC Auto (Bld) [#/Vol]7.5 10 3/uL4.0-11.0[facility] Lymphocytes Auto (Bld) [#/Vol]Ordered By: Yuli Mariscal on 33-67-8019Oocbopvpzrm (Bld) [#/Vol]0.9 10 3/uLLow1.2-3.8[facility] Lymphocytes/100 WBC Auto (Bld)Ordered By: Yuli Mariscal on 04-12-2025 Lymphocytes/100 WBC (Bld)12.2 %Low20.5-60.0[facility] HospitalH Auto (RBC) [Entitic mass]Ordered By: Yuli Mariscal on 26-78-2918QVU (RBC) [Entitic mass]30.6 pg25.9-34.0[facility] HospitalMCHC Auto (RBC) [Mass/Vol]Ordered By: Yuli Mariscal on 49-52-3267VOPX (RBC) [Mass/Vol]31.7 g/dL 29.9-35.2FMercy Health Defiance HospitalMCV Auto (RBC) [Entitic vol]Ordered By: Yuli Mariscal on 52-48-2510BMZ (RBC) [Entitic vol]96.7 vORpas57.0-94.0 [facility] HospitalMonocytes Auto (Bld) [#/Vol]Ordered By: Yuli Mariscal on 98-30-8678Sejnwfovd (Bld) [#/Vol]0.8 10 3/uL0.3-0.8[facility] HospitalMonocytes/100 WBC Auto (Bld)Ordered By: Yuli Mariscal on 87-69-0913Hrdnjsvwr/100 WBC (Bld)10.3 %1.7-12.0[facility] Neutrophils Auto (Bld) [#/Vol]Ordered By: Yuli Mariscal on 40-80-0766Hrqmcrfintd (Bld) [#/Vol]5.7 10 3/uL1.4-6.5FMercy Health Defiance HospitalNeutrophils/100 WBC Auto (Bld)Ordered By: Yuli Mariscal on 27-96-8113Igtfjptygpj/100 WBC (Bld) 75.8 %High43.0-75.0[facility] HospitalNo Panel InformationOrdered By: Yuli Mariscal on 12-95-4155Shxjrvspmpe # (Auto)0.0 10 3/uL0.0-0.7FMercy Health Defiance HospitalImmature Granulocyte # (Auto)0.09 10 3/uLHigh0.00-0.03 [facility] HospitalPlatelet mean volume Auto (Bld) [Entitic vol] Ordered By: Yuli Mariscal on 82-70-4946Adystzza mean volume (Bld) [Entitic vol] 9.5 fL9.5-13.5FMercy Health Defiance HospitalPlatelets Auto (Bld) [#/Vol] Ordered By: Yuli Mariscal on 01-59-9925Sfeamnpxz (Bld) [#/Vol]288 10 3/bP132-710 [facility] HospitalRBC Auto (Bld) [#/Vol]Ordered By: Yuli Mariscal on 08-33-8922MMM (Bld) [#/Vol]3.33 10 6/uLLow4.70-6.10[facility] Centererum or plasma albumin/globulin mass ratioOrdered By: Yuli Mariscal on 68-93-8624Enarynq/Globulin [Mass ratio]0.7 {ratio}[facility] Centererum or plasma anion gap determinationOrdered By: Yuli Mariscal on 55-86-6229Hccmr gap [Moles/Vol]13.3 mmol/LFMercy Health Defiance Hospital Basophils Auto (Bld) [#/Vol]Ordered By: Pablito Hoffman on 54-81-4470Auwfehelr (Bld) [#/Vol]0.0 10 3/uL0.0-0.1FMercy Health Defiance HospitalBasophils/100 WBC Auto (Bld)Ordered By: Pablito Hoffman on 21-59-3018Tgwtywgfx/100 WBC (Bld)0.5 % 0.2-2.0[facility] HospitalEosinophils/100 WBC Auto (Bld)Ordered By: Pablito Hoffman on 23-07-8916Xmownwrqvmr/100 WBC (Bld)0.0 %Low0.9-7.0[facility] HospitalErythrocyte distribution width Auto (RBC) [Ratio]Ordered By: Pablito Hoffman on 83-10-4021Cggkuhakhmf distribution width (RBC) [Ratio]15.8 % High11.0-15.0[facility] HospitalGlobulin Calc (S) [Mass/Vol] Ordered By: Pablito Hoffman on 34-50-0451Ifvbyazu (S) [Mass/Vol]3.7 g/dLAultman HospitalGlomerular filtration rate (GFR) estimation in non- AmericanOrdered By: Pablito Hoffman on 68-50-1339KHN/1.73 sq M.predicted among non-blacks MDRD (S/P/Bld) [Vol rate/Area]49 mL/min/{1.73_m2}Low>=60 mL/min/1.73m 2FMercy Health Defiance HospitalHematocrit Auto (Bld) [Volume fraction]Ordered By: Pablito Hoffman on 65-63-1434Gmeusuywbv (Bld) [Volume fraction]31.6 %Low42.0-54.0[facility] HospitalHemoglobin [Mass/volume] in BloodOrdered By: Pablito Hoffman on 65-34-5653Gxwjorfsfi (Bld) [Mass/Vol]10.0 g/dLLow14.0-18.0[facility] HospitalLaboratory - Chemistry and Chemistry - challengeOrdered By: Pablito Hoffman on 38-86-9745Arkklqb [Mass/Vol]2.5 g/dLLow3.4-5.0[facility] HospitalALP [Catalytic activity/Vol]93 U/D71-010UofkrytxfAultman HospitalALT [Catalytic activity/Vol]21 U/U98-82PhghpokffAultman HospitalAST [Catalytic activity/Vol]U/XVyq58-17ZhjuwxgqqAultman HospitalBilirubin [Mass/Vol]0.6 mg/dL0.2-1.0[facility] HospitalCalcium [Mass/Vol]8.5 mg/dL 8.5-10.1FMercy Health Defiance HospitalChloride [Moles/Vol]105 mmol/L98-107 [facility] HospitalCO2 [Moles/Vol]23.4 mmol/L21.0-32.0[facility] HospitalCreatinine [Mass/Vol]1.41 mg/dLHigh0.70-1.30[facility] HospitalGFR/1.73 sq M.predicted MDRD (S/P/Bld) [Vol rate/Area]60 mL/min/{1.73_m2}>=60 mL/min/1.73m 2FMercy Health Defiance HospitalGlucose [Mass/Vol]92 mg/tM76-874TrubgqwqfAultman HospitalMagnesium [Mass/Vol]2.2 mg/dL1.8-2.4FMercy Health Defiance HospitalPotassium [Moles/Vol]3.4 mmol/LLow 3.5-5.1FMercy Health Defiance HospitalProtein [Mass/Vol]6.2 g/dLLow6.4-8.[address] [facility] Centerodium [Moles/Vol]137 mmol/Y312-855BmeamekshAultman HospitalUrea nitrogen [Mass/Vol]24.0 mg/dLHigh7.0-18.0[facility] HospitalUrea nitrogen/Creatinine [Mass ratio]17.0 mg/mgAultman HospitalLaboratory - Hematology and Cell countsOrdered By: Pablito Hoffman on 53-18-5945Hbuqjmav granulocytes/100 WBC (Bld)1.6 %High0.0-0.5 [facility] HospitalLeukocytes [#/volume] corrected for nucleated erythrocytes in Blood by Automated counOrdered By: Pablito Hoffman on 39-64-0466ZXD corrected for nucl RBC Auto (Bld) [#/Vol]7.5 10 3/uL4.0-11.0[facility] HospitalLymphocytes Auto (Bld) [#/Vol]Ordered By: Pablito Hoffman on 90-97-9036Myfkbkkwgpg (Bld) [#/Vol]0.8 10 3/uLLow1.2-3.8[facility] HospitalLymphocytes/100 WBC Auto (Bld)Ordered By: Pablito Hoffman on 07-02-1366Ljzvzoylioo/100 WBC (Bld)10.8 %Low20.5-60.0[facility] HospitalH Auto (RBC) [Entitic mass]Ordered By: Pablito Hoffman on 18-75-7912XJR (RBC) [Entitic mass]30.4 pg25.9-34.0[facility] HospitalMCHC Auto (RBC) [Mass/Vol]Ordered By: Pablito Hoffman on 76-63-4536CIQY (RBC) [Mass/Vol]31.6 g/dL29.9-35.2FMercy Health Defiance HospitalMCV Auto (RBC) [Entitic vol] Ordered By: Pablito Hoffman on 23-10-6319ZRV (RBC) [Entitic vol]96.0 fLHigh 80.0-94.0[facility] HospitalMonocytes Auto (Bld) [#/Vol]Ordered By: Pablito Hoffman on 87-20-6705Dteojjabr (Bld) [#/Vol]0.9 10 3/uLHigh0.3-0.8 [facility] HospitalMonocytes/100 WBC Auto (Bld)Ordered By: Pablito Hoffman on 40-22-3396Dixtaszog/100 WBC (Bld)11.4 %1.7-12.0[facility] HospitalNeutrophils Auto (Bld) [#/Vol]Ordered By: Pablito Hoffman on 47-91-2526Iqhcmjcargl (Bld) [#/Vol]5.7 10 3/uL1.4-6.5FMercy Health Defiance HospitalNeutrophils/100 WBC Auto (Bld)Ordered By: Pablito Hoffman on 04-07-2025 Neutrophils/100 WBC (Bld)75.7 %High43.0-75.0[facility] HospitalNo Panel InformationOrdered By: Pablito Hoffman on 22-82-0705Fgzmpicjucn # (Auto)0.0 10 3/uL0.0-0.7FMercy Health Defiance HospitalImmature Granulocyte # (Auto)0.12 10 3/uLHigh0.00-0.03[facility] HospitalPlatelet mean volume Auto (Bld) [Entitic vol]Ordered By: Pablito Hoffman on 45-64-6014Bgduzoxw mean volume (Bld) [Entitic vol]9.7 fL9.5-13.5FMercy Health Defiance HospitalPlatelets Auto (Bld) [#/Vol]Ordered By: Pablito Hoffman on 08-96-1957Njvkvlehd (Bld) [#/Vol]243 10 3/vZ617-190VhvqjlwjnAultman HospitalRBC Auto (Bld) [#/Vol]Ordered By: Pablito Hoffman on 53-87-3881VOJ (Bld) [#/Vol]3.29 10 6/uLLow4.70-6.10[facility] Centererum or plasma albumin/globulin mass ratioOrdered By: Pablito Hoffman on 08-76-9219Dptvpbt/Globulin [Mass ratio]0.7 {ratio}[facility] Centererum or plasma anion gap determinationOrdered By: Pablito Hoffman on 59-22-1669Xihqe gap [Moles/Vol]12.0 mmol/LFMercy Health Defiance HospitalBasophils Auto (Bld) [#/Vol]Ordered By: Pablito Hoffman on 04-06-2025 Basophils (Bld) [#/Vol]0.0 10 3/uL0.0-0.1FMercy Health Defiance Hospital Basophils/100 WBC Auto (Bld)Ordered By: Pablito Hoffman on 79-59-4074Hxbknlcgp/100 WBC (Bld)0.5 %0.2-2.0[facility] HospitalEosinophils/100 WBC Auto (Bld)Ordered By: Pablito Hoffman on 57-50-3122Kwbhlmvuwbs/100 WBC (Bld)0.0 %Low 0.9-7.0[facility] HospitalErythrocyte distribution width Auto (RBC) [Ratio]Ordered By: Pablito Hoffman on 24-33-1391Iyupdadkscr distribution width (RBC) [Ratio]15.9 %High11.0-15.0[facility] HospitalGlobulin Calc (S) [Mass/Vol]Ordered By: Pablito Hoffman on 03-23-8261Yglfxnvm (S) [Mass/Vol] 3.9 g/dLAultman HospitalGlomerular filtration rate (GFR) estimation in non- AmericanOrdered By: Pablito Hoffman on 68-48-0008CVH/1.73 sq M.predicted among non-blacks MDRD (S/P/Bld) [Vol rate/Area]55 mL/min/{1.73_m2}Low>=60 mL/min/1.73m 2FMercy Health Defiance Hospital Hematocrit Auto (Bld) [Volume fraction]Ordered By: Pablito Hoffman on 04-06-2025 Hematocrit (Bld) [Volume fraction]30.3 %Low42.0-54.0[facility] HospitalHemoglobin [Mass/volume] in BloodOrdered By: Pablito Hoffman on 04-06-2025 Hemoglobin (Bld) [Mass/Vol]9.8 g/dLLow14.0-18.0[facility] - Chemistry and Chemistry - challengeOrdered By: Pablito Hoffman on 33-83-4596Vgfuxlt [Mass/Vol]2.4 g/dLLow3.4-5.0[facility] ALP [Catalytic activity/Vol]92 U/P09-876IuibhdbibAultman HospitalALT [Catalytic activity/Vol]25 U/H73-46BqwdkdfjzAultman HospitalAST [Catalytic activity/Vol]4 U/QXkf85-25VatmpjasiAultman HospitalBilirubin [Mass/Vol]0.7 mg/dL0.2-1.0[facility] HospitalCalcium [Mass/Vol]8.4 mg/dLLow8.5-10.1FMercy Health Defiance HospitalChloride [Moles/Vol]104 mmol/L 98-107A[facility] HospitalCO2 [Moles/Vol]25.3 mmol/L21.0-32.0 [facility] HospitalCreatinine [Mass/Vol]1.27 mg/dL0.70-1.30 [facility] HospitalGFR/1.73 sq M.predicted MDRD (S/P/Bld) [Vol rate/Area]mL/min/{1.73_m2}>=60 mL/min/1.73m 2FMercy Health Defiance Hospital Glucose [Mass/Vol]98 mg/fA90-439BeskelvtsAultman HospitalMagnesium [Mass/Vol]2.2 mg/dL1.8-2.4FMercy Health Defiance HospitalPotassium [Moles/Vol] 3.4 mmol/LLow3.5-5.1FMercy Health Defiance HospitalProtein [Mass/Vol]6.3 g/dL Low6.4-8.2FMercy Health Lorain Hospitalodium [Moles/Vol]140 mmol/U967-738 [facility] HospitalUrea nitrogen [Mass/Vol]25.0 mg/dLHigh7.0-18.0 [facility] HospitalUrea nitrogen/Creatinine [Mass ratio]19.7 mg/mg [facility] HospitalLaboratory - Hematology and Cell countsOrdered By: Pablito Hoffman on 42-26-1510Zjjojdka granulocytes/100 WBC (Bld)1.2 %High 0.0-0.5FMercy Health Defiance HospitalLeukocytes [#/volume] corrected for nucleated erythrocytes in Blood by Automated counOrdered By: Pablito Hoffman on 61-62-7087DOL corrected for nucl RBC Auto (Bld) [#/Vol]6.5 10 3/uL4.0-11.0 [facility] HospitalLymphocytes Auto (Bld) [#/Vol]Ordered By: Pablito Hoffman on 20-90-4174Yhmgieuyqhj (Bld) [#/Vol]0.9 10 3/uLLow1.2-3.8 [facility] HospitalLymphocytes/100 WBC Auto (Bld)Ordered By: Pablito Hoffman on 17-25-2351Enzvmyyatrn/100 WBC (Bld)13.6 %Low20.5-60.0[facility] HospitalMCH Auto (RBC) [Entitic mass]Ordered By: Pablito Hoffman on 61-02-2997LFN (RBC) [Entitic mass]31.1 pg25.9-34.0[facility] HospitalMCHC Auto (RBC) [Mass/Vol]Ordered By: Pablito Hoffman on 31-72-4060NCAF (RBC) [Mass/Vol]32.3 g/dL29.9-35.2FMercy Health Defiance HospitalMCV Auto (RBC) [Entitic vol]Ordered By: Pablito Hoffman on 54-45-6484ISZ (RBC) [Entitic vol]96.2 hONtgq12.0-94.0[facility] HospitalMonocytes Auto (Bld) [#/Vol] Ordered By: Pablito Hoffman on 11-00-8128Cjmiusjus (Bld) [#/Vol]0.8 10 3/uL0.3-0.8 [facility] HospitalMonocytes/100 WBC Auto (Bld)Ordered By: Pablito Hoffman on 41-49-4196Vadyjwcne/100 WBC (Bld)12.9 %High1.7-12.0[facility] HospitalNeutrophils Auto (Bld) [#/Vol]Ordered By: Pablito Hoffman on 37-61-3264Mrkuxlzoeyf (Bld) [#/Vol]4.7 10 3/uL1.4-6.5FMercy Health Defiance HospitalNeutrophils/100 WBC Auto (Bld)Ordered By: Pablito Hoffman on 04-06-2025 Neutrophils/100 WBC (Bld)71.8 %43.0-75.0[facility] HospitalNo Panel InformationOrdered By: Pablito Hoffman on 25-06-0175E-Reactive Protein, Quantitative6.70 mg/dLHigh<=0.50[facility] HospitalEosinophils # (Auto)0.0 10 3/uL0.0-0.7FMercy Health Defiance HospitalImmature Granulocyte # (Auto)0.08 10 3/uLHigh0.00-0.03[facility] HospitalPhosphorus Level 3.9 mg/dL2.6-4.7FMercy Health Defiance HospitalPlatelet mean volume Auto (Bld) [Entitic vol]Ordered By: Pablito Hoffman on 48-32-8958Bkpkhnmu mean volume (Bld) [Entitic vol]9.8 fL9.5-13.5FMercy Health Defiance HospitalPlatelets Auto (Bld) [#/Vol]Ordered By: Pablito Hoffman on 49-42-1487Mwgknliis (Bld) [#/Vol]250 10 3/uL 150-450[facility] HospitalRBC Auto (Bld) [#/Vol]Ordered By: Pablito Hoffman on 69-53-1453MJU (Bld) [#/Vol]3.15 10 6/uLLow4.70-6.10[facility] Medical Centererum or plasma albumin/globulin mass ratioOrdered By: Pablito Hoffman on 99-10-1100Zjyosxp/Globulin [Mass ratio]0.6 {ratio}[facility] Medical Centererum or plasma anion gap determinationOrdered By: Pablito Hoffman on 66-86-8373Tyhid gap [Moles/Vol]14.1 mmol/LFMercy Health Defiance HospitalErythrocyte distribution width Auto (RBC) [Ratio]Ordered By: Bijal Kaur on 47-44-5771Mbeoaojyguw distribution width (RBC) [Ratio]15.9 % High11.0-15.0[facility] HospitalGlomerular filtration rate (GFR) estimation in non- AmericanOrdered By: Bijal Kaur on 04-05-2025 GFR/1.73 sq M.predicted among non-blacks MDRD (S/P/Bld) [Vol rate/Area]53 mL/min/{1.73_m2}Low>=60 mL/min/1.73m 2FMercy Health Defiance Hospital Hematocrit Auto (Bld) [Volume fraction]Ordered By: Bijal Kaur on 04-05-2025 Hematocrit (Bld) [Volume fraction]29.1 %Low42.0-54.0[facility] HospitalHemoglobin [Mass/volume] in BloodOrdered By: Bijal Kaur on 04-05-2025 Hemoglobin (Bld) [Mass/Vol]9.4 g/dLLow14.0-18.0[facility] - Chemistry and Chemistry - challengeOrdered By: Bijal Kaur on 68-48-6578Rvkutev [Mass/Vol]8.4 mg/dLLow8.5-10.1FMercy Health Defiance HospitalChloride [Moles/Vol]102 mmol/W74-804YqsujictmAultman HospitalCO2 [Moles/Vol]25.9 mmol/L21.0-32.0[facility] HospitalCreatinine [Mass/Vol]1.32 mg/dLHigh0.70-1.30[facility] HospitalGFR/1.73 sq M.predicted MDRD (S/P/Bld) [Vol rate/Area]mL/min/{1.73_m2}>=60 mL/min/1.73m 2 [facility] HospitalGlucose [Mass/Vol]101 mg/fL66-114BhxdzpzakAultman HospitalPotassium [Moles/Vol]3.2 mmol/LLow3.5-5.1FMercy Health Lorain Hospitalodium [Moles/Vol]138 mmol/G905-354KfuadcmapAultman HospitalUrea nitrogen [Mass/Vol]28.0 mg/dLHigh7.0-18.0[facility] HospitalUrea nitrogen/Creatinine [Mass ratio]21.2 mg/mgA[facility] HospitalLeukocytes [#/volume] corrected for nucleated erythrocytes in Blood by Automated counOrdered By: Bijal Garciaomar on 48-73-6217BNN corrected for nucl RBC Auto (Bld) [#/Vol]7.1 10 3/uL4.0-11.0[facility] Auto (RBC) [Entitic mass]Ordered By: Bijal Garciaomar on 05-97-5150KTT (RBC) [Entitic mass]31.1 pg25.9-34.0[facility] HospitalMCHC Auto (RBC) [Mass/Vol]Ordered By: Xochitldacynthia Garciaomar on 05-49-9856PIXI (RBC) [Mass/Vol] 32.3 g/dL29.9-35.2FMercy Health Defiance HospitalMCV Auto (RBC) [Entitic vol] Ordered By: Bijal Garciaomar on 76-21-9540PDG (RBC) [Entitic vol]96.4 fLHigh 80.0-94.0[facility] HospitalNo Panel InformationOrdered By: Objuanitadacynthia Garciaomar on 07-29-7330A-Reactive Protein, Quantitative9.48 mg/dLHigh <=0.50[facility] HospitalPlatelet mean volume Auto (Bld) [Entitic vol]Ordered By: Obaydah Daromar on 96-08-5282Mmnvkggg mean volume (Bld) [Entitic vol]9.7 fL9.5-13.5FMercy Health Defiance HospitalPlatelets Auto (Bld) [#/Vol] Ordered By: Obaydah Daromar on 35-08-0510Xiqqlhpmr (Bld) [#/Vol]225 10 3/uL 150-450[facility] HospitalRBC Auto (Bld) [#/Vol]Ordered By: Obaydah Daromar on 44-14-8130XCY (Bld) [#/Vol]3.02 10 6/uLLow4.70-6.10[facility] Centererum or plasma anion gap determinationOrdered By: Objuanitadah Daromar on 75-68-6474Nmztq gap [Moles/Vol]13.3 mmol/LFMercy Health Defiance HospitalBasophils Auto (Bld) [#/Vol]Ordered By: Obaydah Daromar on 31-44-1140Dkiqfvoir (Bld) [#/Vol]0.0 10 3/uL0.0-0.1FMercy Health Defiance HospitalBasophils/100 WBC Auto (Bld)Ordered By: Obaydah Daromar on 04-04-2025 Basophils/100 WBC (Bld)0.2 %0.2-2.0[facility] Eosinophils/100 WBC Auto (Bld)Ordered By: Obaydah Daromar on 04-04-2025 Eosinophils/100 WBC (Bld)0.0 %Low0.9-7.0[facility] Erythrocyte distribution width Auto (RBC) [Ratio]Ordered By: Obaydah Daromar on 51-98-0313Szyaiksdyde distribution width (RBC) [Ratio]15.9 %High11.0-15.0 [facility] HospitalGlobulin Calc (S) [Mass/Vol]Ordered By: Bijal Kaur on 14-61-6356Lhxqzcfd (S) [Mass/Vol]4.2 g/dLAultman HospitalGlomerular filtration rate (GFR) estimation in non- AmericanOrdered By: Bijal Garciaomar on 11-76-2377UNQ/1.73 sq M.predicted among non-blacks MDRD (S/P/Bld) [Vol rate/Area]46 mL/min/{1.73_m2}Low>=60 mL/min/1.73m 2FMercy Health Defiance HospitalHematocrit Auto (Bld) [Volume fraction]Ordered By: Bijal Kaur on 45-46-8037Qjhwkjpfzo (Bld) [Volume fraction]32.0 %Low 42.0-54.0[facility] HospitalHemoglobin [Mass/volume] in Blood Ordered By: Bijal Kaur on 86-77-4107Pedgpwgbob (Bld) [Mass/Vol]10.2 g/dLLow 14.0-18.0[facility] HospitalLaboratory - Chemistry and Chemistry - challengeOrdered By: Bijal Kaur on 63-49-9244Qbywtaj [Mass/Vol]2.7 g/dLLow 3.4-5.0[facility] HospitalALP [Catalytic activity/Vol]91 U/L46-116 [facility] HospitalALT [Catalytic activity/Vol]20 U/L16-63 [facility] HospitalAST [Catalytic activity/Vol]U/KJlc94-05 [facility] HospitalBilirubin [Mass/Vol]0.8 mg/dL0.2-1.0[facility] HospitalCalcium [Mass/Vol]8.7 mg/dL8.5-10.1FMercy Health Defiance HospitalChloride [Moles/Vol]101 mmol/Q36-619KrheylzooAultman HospitalCO2 [Moles/Vol]25.9 mmol/L21.0-32.0[facility] Creatinine [Mass/Vol]1.50 mg/dLHigh0.70-1.30[facility] GFR/1.73 sq M.predicted MDRD (S/P/Bld) [Vol rate/Area]55 mL/min/{1.73_m2}Low>=60 mL/min/1.73m 2FMercy Health Defiance HospitalGlucose [Mass/Vol]115 mg/dLHigh 74-106[facility] HospitalPotassium [Moles/Vol]3.5 mmol/L3.5-5.1 [facility] HospitalProtein [Mass/Vol]6.9 g/dL6.4-8.2FMercy Health Lorain Hospitalodium [Moles/Vol]138 mmol/M691-129OcnzeroggAultman HospitalUrea nitrogen [Mass/Vol]34.0 mg/dLHigh7.0-18.0[facility] HospitalUrea nitrogen/Creatinine [Mass ratio]22.7 mg/mgAultman HospitalLaboratory - Hematology and Cell countsOrdered By: Bijal Kaur on 28-48-6247Nxhsovdu granulocytes/100 WBC (Bld)0.6 %High0.0-0.5FMercy Health Defiance HospitalLeukocytes [#/volume] corrected for nucleated erythrocytes in Blood by Automated counOrdered By: Bijal Garciaomar on 04-04-2025 WBC corrected for nucl RBC Auto (Bld) [#/Vol]10.2 10 3/uL4.0-11.0[facility] HospitalLymphocytes Auto (Bld) [#/Vol]Ordered By: Bijal Garciaomar on 56-12-3598Lyjubndxtmk (Bld) [#/Vol]0.9 10 3/uLLow1.2-3.8[facility] HospitalLymphocytes/100 WBC Auto (Bld)Ordered By: Bijal Garciaomar on 19-17-0965Jrxanibflqa/100 WBC (Bld)8.8 %Low20.5-60.0[facility] Auto (RBC) [Entitic mass]Ordered By: Bijal Garciaomar on 68-04-8573SNX (RBC) [Entitic mass]30.9 pg25.9-34.0[facility] HospitalMC Auto (RBC) [Mass/Vol]Ordered By: Bijal Garciaomar on 04-50-2199WESF (RBC) [Mass/Vol] 31.9 g/dL29.9-35.2FMercy Health Defiance HospitalMCV Auto (RBC) [Entitic vol] Ordered By: Objuanitadacynthia Daromar on 10-15-4815INY (RBC) [Entitic vol]97.0 fLHigh 80.0-94.0[facility] HospitalMonocytes Auto (Bld) [#/Vol]Ordered By: Objuanitadacynthia Garciaomar on 36-13-3620Kpzirqros (Bld) [#/Vol]1.0 10 3/uLHigh0.3-0.8 [facility] HospitalMonocytes/100 WBC Auto (Bld)Ordered By: Objuanitadacynthia Garciaomar on 76-79-8647Hsguankyf/100 WBC (Bld)9.6 %1.7-12.0[facility] HospitalNeutrophils Auto (Bld) [#/Vol]Ordered By: Objuanitadacynthia Garciaomar on 63-41-7908Havzrgyvose (Bld) [#/Vol]8.3 10 3/uLHigh1.4-6.5FMercy Health Defiance HospitalNeutrophils/100 WBC Auto (Bld)Ordered By: juanitada Joseomar on 37-42-3555Akgrxroblwg/100 WBC (Bld)80.8 %High43.0-75.0[facility] HospitalNo Panel InformationOrdered By: lacy Garciaomar on 78-87-1721Z-Reactive Protein, Pjcdmbgkkfgq36.57 mg/dLHigh<=0.50[facility] Eosinophils # (Auto)0.0 10 3/uL0.0-0.7FMercy Health Defiance HospitalImmature Granulocyte # (Auto)0.06 10 3/uLHigh0.00-0.03[facility] Platelet mean volume Auto (Bld) [Entitic vol]Ordered By: Objuanitadacynthia Garciaomar on 33-52-5444Sxqschny mean volume (Bld) [Entitic vol]10.2 fL9.5-13.5FMercy Health Defiance HospitalPlatelets Auto (Bld) [#/Vol]Ordered By: Objuanitadah Daromar on 10-99-0672Trntaqmob (Bld) [#/Vol]231 10 3/oU670-732VgavrbvsjAultman HospitalRBC Auto (Bld) [#/Vol]Ordered By: Obaydah Daromar on 68-64-1238ZGR (Bld) [#/Vol]3.30 10 6/uLLow4.70-6.10[facility] Centererum or plasma albumin/globulin mass ratioOrdered By: Obaydah Daromar on 04-04-2025 Albumin/Globulin [Mass ratio]0.6 {ratio}[facility] Centererum or plasma anion gap determinationOrdered By: Obaydah Daromar on 12-54-3397Kchlf gap [Moles/Vol]14.6 mmol/LFMercy Health Defiance HospitalBasophils/100 WBC Manual cnt (Bld)Ordered By: Objuanitadah Daromar on 24-37-0267Dqrfsfmdj/100 WBC (Bld) 2.0 %0.2-2.0[facility] HospitalEosinophils/100 WBC Manual cnt (Bld)Ordered By: Obaydah Daromar on 84-83-2924Mascvedacsa/100 WBC (Bld)0.0 %Low 0.9-7.0[facility] HospitalErythrocyte distribution width Auto (RBC) [Ratio]Ordered By: Objuanitadah Daromar on 03-22-0792Pesegtzwnod distribution width (RBC) [Ratio]15.9 %High11.0-15.0[facility] Glomerular filtration rate (GFR) estimation in non- AmericanOrdered By: Obaydah Daromar on 99-23-5772TUY/1.73 sq M.predicted among non-blacks MDRD (S/P/Bld) [Vol rate/Area]53 mL/min/{1.73_m2}Low>=60 mL/min/1.73m 2FMercy Health Defiance HospitalHematocrit Auto (Bld) [Volume fraction]Ordered By: Obaydah Daromar on 08-76-9309Svsggluvun (Bld) [Volume fraction]30.8 %Low 42.0-54.0[facility] HospitalHemoglobin [Mass/volume] in Blood Ordered By: Bijal Kaur on 16-74-5155Bbdlteulpq (Bld) [Mass/Vol]9.6 g/dLLow 14.0-18.0[facility] HospitalLaboratory - Chemistry and Chemistry - challengeOrdered By: Bijal Dunn on 36-28-9768Gehesoe [Mass/Vol]8.6 mg/dL 8.5-10.1FMercy Health Defiance HospitalChloride [Moles/Vol]101 mmol/L98-107 [facility] HospitalCO2 [Moles/Vol]24.6 mmol/L21.0-32.0[facility] HospitalCreatinine [Mass/Vol]1.32 mg/dLHigh0.70-1.30[facility] HospitalGFR/1.73 sq M.predicted MDRD (S/P/Bld) [Vol rate/Area] mL/min/{1.73_m2}>=60 mL/min/1.73m 2FMercy Health Defiance HospitalGlucose [Mass/Vol]105 mg/dU57-896CnbawseibAultman HospitalPotassium [Moles/Vol] 3.9 mmol/L3.5-5.1FMercy Health Lorain Hospitalodium [Moles/Vol]138 mmol/L 136-145[facility] HospitalUrea nitrogen [Mass/Vol]31.0 mg/dLHigh 7.0-18.0[facility] HospitalUrea nitrogen/Creatinine [Mass ratio] 23.5 mg/mgAultman HospitalLaboratory - Hematology and Cell countsOrdered By: Bijal Kaur on 58-80-1512Hhmesikqtfe/100 WBC (Bld)10.0 % Low20.5-60.0[facility] HospitalMonocytes/100 WBC (Bld)4.0 % 1.7-12.0[facility] HospitalLeukocytes [#/volume] corrected for nucleated erythrocytes in Blood by Automated counOrdered By: Bijal Kaur on 50-61-3537RUD corrected for nucl RBC Auto (Bld) [#/Vol]9.8 10 3/uL4.0-11.0 [facility] HospitalMCH Auto (RBC) [Entitic mass]Ordered By: Bijal Garciaomar on 37-12-7551MYK (RBC) [Entitic mass]30.2 pg25.9-34.0[facility] HospitalMCHC Auto (RBC) [Mass/Vol]Ordered By: Objuanitadacynthia Daromar on 24-36-4695EHNF (RBC) [Mass/Vol]31.2 g/dL29.9-35.2FMercy Health Defiance HospitalMCV Auto (RBC) [Entitic vol]Ordered By: Objuanitadacynthia Daromar on 83-79-6519XCS (RBC) [Entitic vol]96.9 gGChos67.0-94.0[facility] HospitalNo Panel InformationOrdered By: Bijal Garciaomar on 26-57-0793Oqihfmor Basophils (Manual) 0.19 10 3/uLHigh0.00-0.10[facility] HospitalC-Reactive Protein, Dtypvnbndfzu33.38 mg/dLHigh<=0.50[facility] HospitalEosinophils # (Manual)0.00 10 3/uL0.00-0.70[facility] HospitalLymphocytes # (Manual)0.98 10 3/uLLow1.20-3.80[facility] HospitalMonocytes # (Manual)0.39 10 3/uL0.30-0.80[facility] Medical Centeregmented Neutrophils # (Manual)8.23 10 3/uLHigh1.4-6.5FMercy Health Defiance Hospital Platelet mean volume Auto (Bld) [Entitic vol]Ordered By: Objuanitadacynthia Daromar on 67-60-7400Sqqcfkjf mean volume (Bld) [Entitic vol]10.4 fL9.5-13.5FMercy Health Defiance HospitalPlatelets Auto (Bld) [#/Vol]Ordered By: Objuanitadah Daromar on 29-23-2690Ijctwidrj (Bld) [#/Vol]210 10 3/nW192-980AdiatldqsAultman HospitalRBC Auto (Bld) [#/Vol]Ordered By: Obaydah Daromar on 25-78-8756MHE (Bld) [#/Vol]3.18 10 6/uLLow4.70-6.10[facility] Centeregmented neutrophils/100 WBC Manual cnt (Bld)Ordered By: Bijal Garciaomar on 04-03-2025 Segmented neutrophils/100 WBC (Bld)84.0 %High43.0-75.0[facility] Centererum or plasma anion gap determinationOrdered By: Bijal Garciaomar on 69-28-8443Gmeps gap [Moles/Vol]16.3 mmol/LFMercy Health Defiance Hospital Basophils Auto (Bld) [#/Vol]Ordered By: Yehuda Boggs on 66-50-7728Qgkejrlgt (Bld) [#/Vol]0.0 10 3/uL0.0-0.1FMercy Health Defiance HospitalBasophils/100 WBC Auto (Bld)Ordered By: Yehuda Boggs on 57-47-4246Tgvltpaze/100 WBC (Bld)0.2 %0.2-2.0[facility] HospitalEosinophils/100 WBC Auto (Bld)Ordered By: Yehuda Boggs on 53-97-1749Lufdlitscgl/100 WBC (Bld)0.1 %Low0.9-7.0[facility] HospitalErythrocyte distribution width Auto (RBC) [Ratio]Ordered By: Yehuda Boggs on 81-18-0257Jqtsfgdcpnq distribution width (RBC) [Ratio]16.0 %High11.0-15.0[facility] HospitalGlobulin Calc (S) [Mass/Vol] Ordered By: Yehuda Boggs on 18-02-7108Rihvivbw (S) [Mass/Vol]4.6 g/dLAultman HospitalGlomerular filtration rate (GFR) estimation in non- AmericanOrdered By: Yehuda Boggs on 13-02-1388MSA/1.73 sq M.predicted among non-blacks MDRD (S/P/Bld) [Vol rate/Area]39 mL/min/{1.73_m2}Low>=60 mL/min/1.73m 2FMercy Health Defiance HospitalHematocrit Auto (Bld) [Volume fraction]Ordered By: Yehuda Boggs on 43-64-4392Bowkyacfhu (Bld) [Volume fraction]34.3 %Low42.0-54.0[facility] HospitalHemoglobin [Mass/volume] in BloodOrdered By: Yehuda Boggs on 19-02-3079Admgtikycb (Bld) [Mass/Vol]11.1 g/dLLow14.0-18.0[facility] HospitalLaboratory - Chemistry and Chemistry - challengeOrdered By: Yehuda Boggs on 04-02-2025 Bilirubin Ql (U)NegativeNEGATIVEAultman HospitalGlucose (U) [Mass/Vol]NegativeNEGATIVEAultman HospitalKetones Ql (U) NegativeNEGATIVEAultman HospitalpH (U)5.5 [pH]5.0-9.0[facility] Medical Centerpecific gravity (U) [Rel density]1.0251.005-1.025 [facility] HospitalUrobilinogen Qn (U)0.2 {Guido'U}/dL0.2-1.0 [facility] HospitalAlbumin [Mass/Vol]3.1 g/dLLow3.4-5.0[facility] HospitalALP [Catalytic activity/Vol]101 U/L96-642TewpyxvpmAultman HospitalALT [Catalytic activity/Vol]21 U/U76-46NufwyuiqwAultman HospitalAST [Catalytic activity/Vol]13 U/LRjj44-92ZyznkqfyfAultman HospitalBilirubin [Mass/Vol]1.6 mg/dLHigh0.2-1.0[facility] HospitalBilirubin.direct [Mass/Vol]0.5 mg/dLHigh0.0-0.2FMercy Health Defiance HospitalCalcium [Mass/Vol]9.1 mg/dL8.5-10.1FMercy Health Defiance Hospital Chloride [Moles/Vol]101 mmol/N93-495XuqzulgorAultman HospitalCO2 [Moles/Vol]24.6 mmol/L21.0-32.0[facility] HospitalCreatinine [Mass/Vol]1.74 mg/dLHigh0.70-1.30[facility] CenterGFR/1.73 sq M.predicted MDRD (S/P/Bld) [Vol rate/Area]47 mL/min/{1.73_m2}Low>=60 mL/min/1.73m 2FMercy Health Defiance HospitalGlucose [Mass/Vol]109 mg/dLHigh 74-106[facility] HospitalLactate [Moles/Vol]1.8 mmol/L0.4-2.0 [facility] HospitalPotassium [Moles/Vol]4.8 mmol/L3.5-5.1FMercy Health Defiance HospitalProtein [Mass/Vol]7.7 g/dL6.4-8.2FMercy Health Lorain Hospitalodium [Moles/Vol]136 mmol/O126-359GnnvgvrkyAultman HospitalUrea nitrogen [Mass/Vol]31.0 mg/dLHigh7.0-18.0[facility] HospitalUrea nitrogen/Creatinine [Mass ratio]17.8 mg/mgAultman HospitalLaboratory - Hematology and Cell countsOrdered By: Yehuda Boggs on 44-40-4240Pllqxjpb granulocytes/100 WBC (Bld)0.5 %0.0-0.5FMercy Health Defiance HospitalLaboratory - Specimen informationOrdered By: Yehuda Boggs on 46-18-3634Euuioacovt (U)CLEARCLEARFMercy Health Defiance HospitalColor (U) YELLOWYELLOWAultman HospitalLaboratory - UrinalysisOrdered By: Yehuda Boggs on 44-81-5532Ldajnxv casts LM Ql (Urine sed)FEWAultman HospitalLeukocyte esterase Test strip Ql (U)NegativeNEGATIVEAultman HospitalMucus Ql (Urine sed)NONE SEENNONE SEENAultman HospitalNitrite Ql (U)NegativeNEGATIVEA[facility] Hospital Protein Ql (U)30 mg/dLAbnormalNEG/TRACEAultman Hospital Leukocytes [#/volume] corrected for nucleated erythrocytes in Blood by Automated counOrdered By: Yehuda Boggs on 83-92-8678HZH corrected for nucl RBC Auto (Bld) [#/Vol]12.7 10 3/uLHigh4.0-11.0[facility] Lymphocytes Auto (Bld) [#/Vol]Ordered By: Yehuda Boggs on 76-88-8112Kilgzvxbyif (Bld) [#/Vol]0.9 10 3/uLLow1.2-3.8[facility] Lymphocytes/100 WBC Auto (Bld)Ordered By: Yehuda Bgogs on 04-02-2025 Lymphocytes/100 WBC (Bld)7.3 %Low20.5-60.0[facility] HospitalH Auto (RBC) [Entitic mass]Ordered By: Yehuda Boggs on 74-17-7934RHP (RBC) [Entitic mass]31.3 pg25.9-34.0[facility] HospitalMCHC Auto (RBC) [Mass/Vol]Ordered By: Yehuda Boggs on 09-09-5184CCRT (RBC) [Mass/Vol]32.4 g/dL 29.9-35.2FMercy Health Defiance HospitalMCV Auto (RBC) [Entitic vol]Ordered By: Yehuda Boggs on 94-91-9282NJR (RBC) [Entitic vol]96.6 gHWpsh84.0-94.0 [facility] HospitalMonocytes Auto (Bld) [#/Vol]Ordered By: Yehuda Boggs on 10-73-0500Kywyemdya (Bld) [#/Vol]0.9 10 3/uLHigh0.3-0.8[facility] HospitalMonocytes/100 WBC Auto (Bld)Ordered By: Yehuda Boggs on 99-61-9096Gtlugqnfr/100 WBC (Bld)6.9 %1.7-12.0[facility] Neutrophils Auto (Bld) [#/Vol]Ordered By: Yehuda Boggs on 18-39-2619Bzfwklxdccx (Bld) [#/Vol]10.8 10 3/uLHigh1.4-6.5FMercy Health Defiance Hospital Neutrophils/100 WBC Auto (Bld)Ordered By: Yehuda Boggs on 04-02-2025 Neutrophils/100 WBC (Bld)85.0 %High43.0-75.0[facility] HospitalNo Panel InformationOrdered By: Yehuda Boggs on 65-10-1728Kmtxw BacteriaNONE SEEN #/HPFNONE SEENAultman HospitalUrine Culture ReflexedNOAultman HospitalUrine Occult BloodNegativeNEGATIVEAultman HospitalUrine Other CastsSEEN #/LPFAbnormalNONE SEENAultman HospitalUrine Other CrystalsNone Seen #/HPFNone [facility] CenterUrine RBCNONE SEEN #/HPF0-2FMercy Health Defiance HospitalUrine Squamous Epithelial CellsRARE #/LPFNONE/RAREAultman Hospital Urine WBCNONE SEEN #/HPFNONE SEENAultman HospitalEosinophils # (Auto)0.0 10 3/uL0.0-0.7FMercy Health Defiance HospitalImmature Granulocyte # (Auto)0.06 10 3/uLHigh0.00-0.03[facility] HospitalPlatelet mean volume Auto (Bld) [Entitic vol]Ordered By: Yheuda Boggs on 05-45-0025Vskngdyn mean volume (Bld) [Entitic vol]10.4 fL9.5-13.5FMercy Health Defiance Hospital Platelets Auto (Bld) [#/Vol]Ordered By: Yehuda Boggs on 21-60-4147Tfekntqwt (Bld) [#/Vol]241 10 3/eO614-901QczvsuuogAultman HospitalRBC Auto (Bld) [#/Vol]Ordered By: Yehuda Boggs on 98-74-4322UJE (Bld) [#/Vol]3.55 10 6/uLLow 4.70-6.10[facility] Medical Centererum or plasma albumin/globulin mass ratioOrdered By: Yehuda Boggs on 66-52-6556Iscurch/Globulin [Mass ratio]0.7 {ratio}[facility] Medical Centererum or plasma anion gap determination Ordered By: Yehuda Boggs on 12-04-9765Ftcvh gap [Moles/Vol]15.2 mmol/LFMercy Health Defiance HospitalXR CHEST 2V FRONTAL/LATon 26-46-4323JJ CHEST 2V FRONTAL/LATNormalCSelect Medical [facility] metabolic 2000 panelon 32-50-6474Ymlxo gap [Moles/Vol]13 mmol/LNormal8-15[facility]on HospitalComment on above: Order Comment: Specimen Type: BLOOD SPECIMEN Ordering Facility: [facility] Address: [address] [place], [place] [address]Performed By: #### [id number] #### [facility] [place] [id number] [address] [place] [address] [place] AMERICACalcium [Mass/Vol]8.7 mg/dLNormal8.5-10.2 [place] HospitalComment on above:Order Comment: Specimen Type: BLOOD SPECIMEN Ordering Facility: [facility] Address: [address] [place], [place] [address]Performed By: #### [id number] #### [facility] [place] [id number] [address] [place] [address] [place] AMERICAChloride [Moles/Vol]96 mmol/LOqw82-385 [facility] HospitalComment on above:Order Comment: Specimen Type: BLOOD SPECIMEN Ordering Facility: [facility] Address: [address] [place], [place] [address]Performed By: #### [id number] #### [facility] [place] [id number] [address] [place] [address] [place] AMERICACO2 [Moles/Vol]24 mmol/QZofzno35-20Qlkb HospitalComment on above:Order Comment: Specimen Type: BLOOD SPECIMEN Ordering Facility: [facility] Address: [address] [place], [place] [address]Performed By: #### 05781-4 #### [facility] [place] [id number] [address] [place] [address] [place] AMERICACreatinine [Mass/Vol]1.59 mg/dLHigh 0.73-1.22[facility] [place] HospitalComment on above:Order Comment: Specimen Type: BLOOD SPECIMEN Ordering Facility: [facility] Address: [address] [place], [place] [address]Performed By: #### [id number] #### [facility] [place] [id number] [place] [address] [place] AMERICAeGFRcr SerPlBld CKD-EPI 697518 mL/min/1.73m???Low>=60Avon HospitalComment on above:Order Comment: Specimen Type: BLOOD SPECIMEN Ordering Facility: [facility] Address: [address] [place] [address] [place] [id number] Comment: Estimated Glomerular Filtration Rate (eGFR) is [...] not accurately reflect actual GFR.Performed By: #### 69097-7 #### [facility] CLIA [id number] [address] [place] [address] [place] AMERICAGlucose [Mass/Vol]110 mg/rKKsep71-33Xhte HospitalComment on above:Order Comment: Specimen Type: BLOOD SPECIMEN Ordering Facility: [facility] Address: [address] [place], [place] [address] [id number] Comment: The [place] Diabetes Association (ADA) provides guidance for cutoff [...] Standards of Medical Care in Diabetes 2016, [place] [employer] Association. Diabetes Care. 2016.39(Suppl 1).Performed By: #### 46397-2 #### [facility] CLIA [id number] [address] [place] [address] [place] AMERICAPotassium [Moles/Vol]3.8 mmol/LNormal 3.7-5.1Avon HospitalComment on above:Order Comment: Specimen Type: BLOOD SPECIMEN Ordering Facility: [facility] Address: [address] [place] [id number] By: #### 72847-0 #### [facility] CLIA [id number] [place] [address] [place] AMERICASodium [Moles/Vol]133 mmol/HBbm266-855 [facility] Cuyama HospitalComment on above:Order Comment: Specimen Type: BLOOD SPECIMEN Ordering Facility: [facility] Address: [address] [place], [place] [address]Performed By: #### 38182-5 #### [facility] CLIA [id number] [address] [place] [address] [place] AMERICAUrea nitrogen [Mass/Vol]34 mg/dLHigh9-24 [facility] Cuyama HospitalComment on above:Order Comment: Specimen Type: BLOOD SPECIMEN Ordering Facility: [facility] Address: [address] [place], [place] [address]Performed By: #### 87353-6 #### [facility] IA [id number] [address] [place] [address] [place] OF AMERICAPLATELET AGGREGATIONon 12-73-3727Qnrdrkfm aggregation ADP induced 10 umol/L (PRP) [Rel units/Vol]64 % WkaClzngp01-22Yjkb HospitalComment on above:Order Comment: Specimen Type: BLOOD SPECIMEN Ordering Facility: [facility] Address: [address] [place], [place] [address]Performed By: #### [id number], [id number] #### [facility] CLIA [id number] [address] [place] [address] [place] AMERICAPlatelet aggregation ADP induced 20 umol/mL (PRP) [Rel units/Vol]73 % CtrYfeqbv75-06Cxhx HospitalComment on above:Order Comment: Specimen Type: BLOOD SPECIMEN Ordering Facility: [facility] Address: [address] [place], [place] [address]Performed By: #### [id number], [id number] #### [facility] CLIA [id number] [address] [place], [place] [address] [place] AMERICAPlatelet aggregation ADP induced ATP secretion 10 umol/L (Bld) [Rel units/Vol]0.8 nMNormal0.1-1.4Avon HospitalComment on above:Order Comment: Specimen Type: BLOOD SPECIMEN Ordering Facility: [facility] Address: [address] [place], [place] [address]Performed By: #### [id number], [id number] #### [facility] CLIA [id number] [address] [place] [address] [place] AMERICAPlatelet aggregation ADP induced ATP secretion 5 umol/L (Bld) [Rel units/Vol]0.4 nMNormal0.1-1.3Avon HospitalComment on above:Order Comment: Specimen Type: BLOOD SPECIMEN Ordering Facility: [facility] Address: [address] [place], [place] [address]Performed By: #### [id number], [id number] #### [facility] CLIA [id number] [address] [place] [address] [place] AMERICAPlatelet aggregation ADP induced High dose (PRP) [Rel units/Vol]57 % YcsIew98-27Dcwr HospitalComment on above:Order Comment: Specimen Type: BLOOD SPECIMEN Ordering Facility: [facility] Address: [address] [place], [place] [address]Performed By: #### [id number], [id number] #### [facility] CLIA [id number] [address] [place] [address] [place] AMERICAPlatelet aggregation arachidonate induced 500 ug/mL (PRP) [Rel units/Vol]80 % DyiUekbkb27-809Urib HospitalComment on above:Order Comment: Specimen Type: BLOOD SPECIMEN Ordering Facility: [facility] Address: [address] [place], [place] [address]Performed By: #### [id number], [id number] #### [facility] CLIA [id number] [address] [place] [address] [place] AMERICAPlatelet aggregation arachidonate induced ATP secretion 500 umol/L (Bld) [Rel units/Vol]0.7 nMNormal 0.4-2.0Avon HospitalComment on above:Order Comment: Specimen Type: BLOOD SPECIMEN Ordering Facility: [facility] Address: [address] [place], [place] [address]Performed By: #### [id number], [id number] #### [facility] CLIA [id number] [address] [place] [address] [place] AMERICAPlatelet aggregation collagen induced ATP secretion 1 ug/mL (Bld) [Rel units/Vol]0.6 nMNormal0.4-1.7 Subha HospitalComment on above:Order Comment: Specimen Type: BLOOD SPECIMEN Ordering Facility: [facility] Address: [address] [place], [place] [address]Performed By: #### [id number], [id number] #### [facility] CLIA [id number] [address] [place] [address] [place] AMERICAPlatelet aggregation collagen induced Qn (Bld)70 % IxpGtb71-89Yncq HospitalComment on above:Order Comment: Specimen Type: BLOOD SPECIMEN Ordering Facility: [facility] Address: [address] [place], [place] [address]Performed By: #### [id number], [id number] #### [facility] CLIA [id number] [address] [place] [address] [place] AMERICAPlatelet aggregation EPINEPHrine induced (PRP) [Rel units/Vol]73 % JfeYjnepc71-34Ybis HospitalComment on above:Order Comment: Specimen Type: BLOOD SPECIMEN Ordering Facility: [facility] Address: [address] [place], [place] [address]Performed By: #### [id number], [id number] #### [facility] CLIA [id number] [address] [place] [address] [place] AMERICAPlatelet aggregation EPINEPHrine induced 100 umol/L (PRP) [Rel units/Vol]76 % GntVubrel84-13Gyah HospitalComment on above:Order Comment: Specimen Type: BLOOD SPECIMEN Ordering Facility: [facility] Address: [address] [place], [place] [address]Performed By: #### [id number], [id number] #### [facility] CLIA [id number] [address] [place] [address] [place] AMERICAPlatelet aggregation ristocetin induced 1200 ug/mL (PRP) [Rel units/Vol]82 % AgwYyqbvy62-260Yftg HospitalComment on above:Order Comment: Specimen Type: BLOOD SPECIMEN Ordering Facility: [facility] Address: [address] [place], [place] [address]Performed By: #### [id number], [id number] #### [facility] CLIA [id number] [address] [place] [address] [place]ICAPlatelet aggregation ristocetin induced 1500 ug/mL (PRP) [Rel units/Vol]85 % GjfJvrwzq14-739Vlck HospitalComment on above:Order Comment: Specimen Type: BLOOD SPECIMEN Ordering Facility: [facility] Address: [address] [place], [place] [address]Performed By: #### [id number], [id number] #### [facility] CLIA [id number] [address] [place] [address] [place] AMERICAPlatelet aggregation ristocetin induced 600 ug/mL (PRP) [Rel units/Vol]4 % MaxNormal0-9[facility] Comment on above:Order Comment: Specimen Type: BLOOD SPECIMEN Ordering Facility: [facility] Address: [address] [place], [place] [address]Performed By: #### [id number], [id number] #### [facility] CLIA [id number] [address] [place] [address] [place] AMERICAPlatelet aggregation ristocetin induced 900 ug/mL (PRP) [Rel units/Vol]75 % CgmJmewrk65-343Ltrb HospitalComment on above:Order Comment: Specimen Type: BLOOD SPECIMEN Ordering Facility: [facility] Address: [address] [place], [place] [address]Performed By: #### [id number], [id number] #### [facility] CLIA [id number] [address] [place] [address] [place] [facility] AMERICAPlatelet aggregation thrombin induced ATP secretion 1 U/mL (Bld) [Rel units/Vol]1.0 nMNormal>0.5Avon HospitalComment on above:Order Comment: Specimen Type: BLOOD SPECIMEN Ordering Facility: [facility] Address: [address] [place], [place] [address]Performed By: #### [id number], [id number] #### [facility] CLIA [id number] [address] [place] [address] [place]APlatelet aggregation thrombin induced ATP secretion 5 U/mL (Bld) [Rel units/Vol]0.4 nMNormal0.2-1.4 Subha HospitalComment on above:Order Comment: Specimen Type: BLOOD SPECIMEN Ordering Facility: [facility] Address: [address] [place], [place] [address]Performed By: #### [id number], [id number] #### [facility] CLIA [id number] [address] [place] [address] [place] AMERICAPLATELET AGGREGATION INTERP on 14-54-1064Aprmosa Ab Platelet aggregation Ql (PPP)Reviewed by Zeny McraeInspira Medical Center Elmersandro HospitalComment on above:Order Comment: Specimen Type: BLOOD SPECIMEN Ordering Facility: [facility] Address: [address] [place], [place] [address]Performed By: #### [id number], [id number] #### [facility] CLIA [id number] [address] [place] [address] [place] AMERICAPlatelet aggregation (PPP) [Interp]NormalAv HospitalComment on above:Order Comment: Specimen Type: BLOOD SPECIMEN Ordering Facility: [facility] Address: [address] [place], [place] [address]Result Comment: Abnormal - see comment below. A [...] clinical findings and medication history.Performed By: #### [id number], [id number] #### [facility] CLIA [id number] [address] [place] [address] [place] AMERICACNNURSEon 91-50-7550CQTFUYZ NormalMount Carmel Health SystemHISTORY PHYSICALon 83-75-1197PNILRTY PHYSICAL NormalJ.W. [facility] PROGon 52-97-1149EVOUXJA PROGNormal [facility] PROGNormalMount Carmel Health SystemUpper GI endoscopyon 58-24-7879Fezia GI endoscopyNormalCProMedica Defiance [facility] PROGon 97-19-1674HMWCOPV PROGNormalMount Carmel Health SystemXR Foot - left 3 Viewson 92-12-0377Qjshfgk Result: 3 views left foot: Weight-bearing: DP, oblique, lateral: 03/12/2025: Unremarkable for acute osseous or joint pathology. Unremarkable for fracture or stress fracture changes. There are no distinct lytic or erosive changes of the distal phalanx 2nd digit. Extensive degenerative arthritic changes of the 1st MTP joint.[facility] HealthcareRadiology Study observation (narrative)[facility] Comprehensive metabolic 2000 panelon 98-54-7188Xfbffof [Mass/Vol]4.0 g/dLNormal 3.9-4.9CCherrington Hospital on above:Order Comment: Specimen Type: BLOOD SPECIMENOrdering Facility: [facility] Address:[address] [place], [place] [address]Performed By: #### 60906-1 ####[facility]CLIA [id number] [place], [place] [address]BSV [Catalytic activity/Vol]117 U/BCurg86-167CzlifzosuOhioHealth O'Bleness Hospital on above:Order Comment: Specimen Type: BLOOD SPECIMENOrdering Facility: [facility] Address:[address] [place], [place] [address]Performed By: #### 03150-0 ####[facility] LABCLIA [id number] [place], [place] [address]LCL [Catalytic activity/Vol]16 U/JUzyagf48-67UfdevzmapOhioHealth O'Bleness Hospital on above:Order Comment: Specimen Type: BLOOD SPECIMENOrdering Facility: [facility] Address:[address] [place], [place] [address]Performed By: #### 32354-9 ####[facility] LABCLIA [id number] [place], [place] [address]Sdwin gap [Moles/Vol]10 mmol/LNormal8-15[facility] on above:Order Comment: Specimen Type: BLOOD SPECIMENOrdering Facility: [facility] Address:[address] [place], [place] [address]Performed By: #### 87491- 8 ####[facility] LABCLIA [id number] [place], [place] [address]KTA [Catalytic activity/Vol]U/FEoq61-59DdpfrmayiOhioHealth O'Bleness Hospital on above:Order Comment: Specimen Type: BLOOD SPECIMENOrdering Facility: [facility] Address:[address] [place], [place] [address]Performed By: #### 28645-0 ####[facility] LABCLIA [id number] [place], [place] [address]Ltormxijk [Mass/Vol]0.6 mg/dL Normal0.2-1.3CCherrington Hospital on above:Order Comment: Specimen Type: BLOOD SPECIMENOrdering Facility: [facility] Address:[address] [place], [place] [address]Performed By: #### 30047-4 ####[facility]ERYARELI [facility] LABCLIA [id number] [place] [address] Calcium [Mass/Vol]8.7 mg/dLNormal8.5-10.2CCherrington Hospital on above:Order Comment: Specimen Type: BLOOD SPECIMENOrdering Facility: [facility] Address:[address] [place], [place] [address]Performed By: #### 92876-0 ####[facility] LABCLIA [id number] [place] LUDWIGCHRISBANNER BOSWELL MEDICAL CENTERNILESHGR[place]ES[place], [place] [address]Krfdqlnw [Moles/Vol]99 mmol/HXxbkll83-890JoouhjqckOhioHealth O'Bleness Hospital on above:Order Comment: Specimen Type: BLOOD SPECIMENOrdering Facility: [facility] Address:[address] [place], [place] [address]Performed By: #### 45853-3 ####[facility]CL[facility] [id number] [place], [place] [address]EG8 [Moles/Vol] 23 mmol/UJcdcrq43-35TtucqqghiOhioHealth O'Bleness Hospital on above:Order Comment: Specimen Type: BLOOD SPECIMENOrdering Facility: [facility] Address:[address] [place], [place] [address]Performed By: #### 90273-1 ####[facility]CLIA [id number] [place], [place] [address]Abwplphidl [Mass/Vol]1.23 mg/dLHigh0.73-1.22[facility] on above:Order Comment: Specimen Type: BLOOD SPECIMENOrdering Facility: [facility] Address:[address] [place], [place] [address]Performed By: #### 58717-9 ####[facility] LABCL[facility] [id number] [place], [place] [address]mJPXxx SerPlBld CKD-EPI 214831 mL/min/1.73m???Normal>=60[facility] on above:Order Comment: Specimen Type: BLOOD SPECIMENOrdering Facility: [facility] Address:[address] [place], [place] [address]Result Comment: Estimated Glomerular Filtration Rate (eGFR) is [...] not accurately reflect actual GFR.Performed By: #### 62534-4 ####[facility] LABCLIA [id number] [place], [place] [address]Gykvcsg [Mass/Vol]144 mg/wVDofu30-96XisiemfyrOhioHealth O'Bleness Hospital on above:Order Comment: Specimen Type: BLOOD SPECIMENOrdering Facility: [facility] Address:[address] [place], [place] [address]Result Comment: The [place] Diabetes Association (ADA) provides guidance for cutoff [...] Standards of Medical Care in Diabetes 2016, [place] Diabetes Association. Diabetes Care. 2016.39(Suppl 1).Performed By: #### 98784-0 ####[facility] LABCLIA [id number] [place], [place] [address]Xstorevon [Moles/Vol]4.9 mmol/LNormal3.7-5.1CCherrington Hospital on above:Order Comment: Specimen Type: BLOOD SPECIMENOrdering Facility: [facility] Address:[address] [place], [place] [address]Performed By: #### 25387-9 ####[facility] LABCLIA [id number] [place], [place] [address]Ijrxpcz [Mass/Vol]6.8 g/dLNormal6.3-8.0[facility] on above:Order Comment: Specimen Type: BLOOD SPECIMENOrdering Facility: [facility] Address:[address] [place], [place] [address]Performed By: #### 59976- 8 ####[facility] LABCLIA [id number] [place], [place] [address]Jqxggx [Moles/Vol]132 mmol/LIpy530-621AqkbecnfxOhioHealth O'Bleness Hospital on above:Order Comment: Specimen Type: BLOOD SPECIMENOrdering Facility: [facility] Address:[address] [place], [place] [address]Performed By: #### 14681-7 ####[facility] LABCLIA [id number] [place], [place] [address]Smiz nitrogen [Mass/Vol]22 mg/dLNormal9-24[facility] on above:Order Comment: Specimen Type: BLOOD SPECIMENOrdering Facility: [facility] Address:[address] [place], [place] [address]Performed By: #### 78920-7 ####[facility] LABCLIA [id number] [place], [place] [address]DQHSvk 58-09-9823NGGTAvghznYujobuxjt Clinic ClevelandCNOV on 18-40-8546SRELIinirnHtavaksrx Clinic ClevelandCNPTOUTREACHon 02-25-2025 CNPTOUTREACHNormalCKindred Hospital LimaLaboratory - Hematology and Cell countson 75-32-2091Slkwbgrhtd Ql (U)NegativeNegativeSelect Medical Specialty Hospital - Cleveland-FairhillLaboratory - Urinalysison 85-18-4745Qwbpbun Ql (U)NegativeNegative mg/dLSelect Medical Specialty Hospital - Cleveland-FairhillNo Panel Informationon 77-23-8261BMILLDJPR UA (POCT)NegativeNegativeSelect Medical Specialty Hospital - Cleveland-FairhillCLARITY UA (POCT)ClearCleEast Ohio Regional HospitalCOLOR UA (POCT)Light yellowSelect Medical Specialty Hospital - Cleveland-FairhillGLUCOSE UA (POCT)NegativeNegative mg/dLSelect Medical Specialty Hospital - Cleveland-FairhillKETONE UA (POCT) NegativeNegative mg/dLSelect Medical Specialty Hospital - Cleveland-FairhillLEUKOCYTES UA (POCT)NegativeNegative [facility] Cleveland-FairhillNITRITE UA (POCT)NegativeNegativeSelect Medical Specialty Hospital - Cleveland-FairhillPH UA (POCT)7.0 4.5 - 8.0Sum[facility] Barberton CampusPECIFIC GRAVITY UA (POCT)1.0151.005 - 1.030[facility] Cleveland-FairhillUROBILINOGEN UA (POCT)0.2Normal E.U./dLSelect Medical Specialty Hospital - Cleveland-FairhillLocation:[facility] [place], [address] [place] [address], [address] [place] [address] POINT OF CARE [facility] Cleveland-FairhillNo Panel Informationon 98-91-1509HRKJAUQUBE: Cirrhotic liver morphology. No lesion. Patent hepatic vasculature with appropriately directed flow. Small volume abdominal ascites around the liver and in right lower quadrant. 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: PSCB Transcribe Date/Time: Feb 19 2025 1:53P Dictated by : LISBETH REBOLLAR MD This examination was interpreted and the report reviewed and electronically signed by: LONNIE ANN MD on Feb 19 2025 3:15PM [facility] DIVISION OF RADIOLOGYRadiology Study observation (narrative)[facility] Panel InformationOrdered By: Ccf Provider on 65-01-1259Fuxtwqbzn ClinicUS ABD LIVER VASCULARon 99-30-8903LM ABD LIVER VASCULARNormalCKindred Hospital Lima US DOPPLER COMPLETEon 23-05-2615OJ DOPPLER COMPLETENormalCElyria Memorial Hospital.doppler Abdominal vesselson 02-19-2025* * *Final Report* * * DATE OF EXAM: Feb 19 2025 1:47PM RITA 1233 - US ABD LIVER VASCULAR / PROCEDURE REASON: Other ascites * * * * Physician Interpretation * * * * EXAMINATION: LIVER VASCULAR ULTRASOUND WITH DOPPLER IMAGING CLINICAL HISTORY: Ute liver biopsy 02/02/2025: Hepatic parenchyma with zone [...] normal, phasic wave form. DIVISION OF RADIOLOGYProvider, [facility] [place] - 02/19/2025 * * *Final Report* * * DATE OF EXAM: Feb 19 2025 1:47PM RITA Cade3 - US ABD LIVER VASCULAR / PROCEDURE REASON: Other ascites * * * * Physician Interpretation * * * * EXAMINATION: LIVER VASCULAR ULTRASOUND WITH DOPPLER IMAGING CLINICAL HISTORY: Ute liver biopsy 02/02/2025: Hepatic parenchyma with zone [...] the liver and in right lower quadrant. 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: PSCB Transcribe Date/Time: Feb 19 2025 1:53P Dictated by : LISBETH REBOLLAR MD This examination was interpreted and the report reviewed and electronically signed by: LONNIE ANN MD on Feb 19 2025 3:15PM [facility].doppler Unspecified body regionon 02-19-2025* * *Final Report* * * DATE OF EXAM: Feb 19 2025 1:47PM RITA 1033 - US DOPPLER COMPLETE / PROCEDURE REASON: Other ascites * * * * Physician Interpretation * * * * EXAMINATION: LIVER VASCULAR ULTRASOUND WITH DOPPLER IMAGING CLINICAL HISTORY: Ute liver biopsy 02/02/2025: Hepatic parenchyma with zone [...] normal, phasic wave form. DIVISION OF RADIOLOGYProvider, [facility] [place] - 02/19/2025 * * *Final Report* * * DATE OF EXAM: Feb 19 2025 1:47PM RITA 1033 - US DOPPLER COMPLETE / PROCEDURE REASON: Other ascites * * * * Physician Interpretation * * * * EXAMINATION: LIVER VASCULAR ULTRASOUND WITH DOPPLER IMAGING CLINICAL HISTORY: Ute liver biopsy 02/02/2025: Hepatic parenchyma with zone [...] the liver and in right lower quadrant. 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: ALONSO Transcribe Date/Time: Feb 19 2025 1:53P Dictated by : LISBETH REBOLLAR MD This examination was interpreted and the report reviewed and electronically signed by: LONNIE ANN MD on Feb 19 2025 3:15PM [facility] Hospitalprehensive metabolic 2000 panelon 32-55-7173Effuylf [Mass/Vol]4.0 g/dLNormal3.9-4.9CCherrington Hospital on above:Order Comment: Specimen Type: BLOOD SPECIMENOrdering Facility: [facility] Address:[address] [place], [place] [address]Performed By: #### 21533- 8 ####[facility] LABCLIA [id number] [place], [place] [address]OSE [Catalytic activity/Vol]106 U/DVylrhy76-152YoiyraqveOhioHealth O'Bleness Hospital on above:Order Comment: Specimen Type: BLOOD SPECIMENOrdering Facility: [facility] Address:[address] [place], [place] [address]Performed By: #### 64467-7 ####[facility] LABCLIA [id number] [place], [place] [address]IVO [Catalytic activity/Vol]17 U/YIycenx86-60AjtozivssOhioHealth O'Bleness Hospital on above:Order Comment: Specimen Type: BLOOD SPECIMENOrdering Facility: [facility] Address:[address] [place], [place] [address]Performed By: #### 39295- 8 ####[facility] LABCLIA [id number] [place], [place] [address]Kowps gap [Moles/Vol]12 mmol/LNormal8-15[facility] on above:Order Comment: Specimen Type: BLOOD SPECIMENOrdering Facility: [facility] Address:[address] [place], [place] [address]Performed By: #### 17890-4 ####[facility] LABCLIA [id number] [place], [place] [address]DUL [Catalytic activity/Vol]U/L Wjw95-95EwkygwkgfOhioHealth O'Bleness Hospital on above:Order Comment: Specimen Type: BLOOD SPECIMENOrdering Facility: [facility] Address:[address] [place], [place] [address]Performed By: #### 45507-9 ####[facility] LABCLIA [id number] [place], [place] [address]Iwgwfymlm [Mass/Vol]0.5 mg/dLNormal0.2-1.3CCherrington Hospital on above:Order Comment: Specimen Type: BLOOD SPECIMENOrdering Facility: [facility] Address:[address] [place], [place] [address]Performed By: #### 86309- 8 ####[facility] LABCLIA [id number] [place], [place] [address]Jymnail [Mass/Vol]9.2 mg/dLNormal8.5-10.2CCherrington Hospital on above:Order Comment: Specimen Type: BLOOD SPECIMENOrdering Facility: [facility] Address:[address] [place], [place] [address]Performed By: #### 26371-2 ####[facility] LABCLIA [id number] [place], [place] [address]Dpwkueyx [Moles/Vol]100 mmol/L Qzidhr71-286XrgnsarcaOhioHealth O'Bleness Hospital on above:Order Comment: Specimen Type: BLOOD SPECIMENOrdering Facility: [facility] Address:[address] [place], [place] [address]Performed By: #### 36448-5 ####[facility] LABCLIA [id number] [place] [address] CO2 [Moles/Vol]23 mmol/SVazjxw53-45VwxuwcnqcOhioHealth O'Bleness Hospital on above: Order Comment: Specimen Type: BLOOD SPECIMENOrdering Facility: [facility] Address:[address] [place] [address]Quetcbvzl By: #### 75331- 8 ####[facility] LABCLIA [id number] [place], [place] [address]Ozkugefzvw [Mass/Vol]1.26 mg/dLHigh0.73-1.22[facility] on above:Order Comment: Specimen Type: BLOOD SPECIMENOrdering Facility: [facility] Address:[address] [place], [place] [address]Performed By: #### [id number] ####[facility] LABCLIA [id number] [place], [place] [address]kALQyw SerPlBld CKD-EPI [id number] mL/min/1.73m???Normal>=60[facility] on above:Order Comment: Specimen Type: BLOOD SPECIMENOrdering Facility: [facility] Address:[address] [place] [id number] Comment: Estimated Glomerular Filtration Rate (eGFR) is [...] not accurately reflect actual GFR.Performed By: #### 27063-6 ####[facility] LABCLIA [id number] [place], [place] [address]Ranhecb [Mass/Vol]144 mg/rJBluj54-07KovuhtkzyOhioHealth O'Bleness Hospital on above:Order Comment: Specimen Type: BLOOD SPECIMENOrdering Facility: [facility] Address:[address] [place] [address]Iuxxbg Comment: The [place] Diabetes Association (ADA) provides guidance for cutoff [...] Standards of Medical Care in Diabetes 2016, [place] Diabetes Association. Diabetes Care. 2016.39(Suppl 1).Performed By: #### 50095-7 ####[facility] LABCLIA [id number] [place], [place] [address]Hhjipnmct [Moles/Vol]4.2 mmol/LNormal3.7-5.1CCherrington Hospital on above:Order Comment: Specimen Type: BLOOD SPECIMENOrdering Facility: [facility] Address:[address] [place], [place] [address]Performed By: #### 54296-6 ####[facility] LABCLIA [id number] [place], [place] [address]Fwpkqjd [Mass/Vol]6.8 g/dLNormal6.3-8.0[facility] on above:Order Comment: Specimen Type: BLOOD SPECIMENOrdering Facility: [facility] Address:[address] [place], [place] [address]Performed By: #### 55663- 8 ####[facility] LABCLIA [id number] [place], [place] [address]Hfeowk [Moles/Vol]135 mmol/YHoq226-862RxtnvbyduOhioHealth O'Bleness Hospital on above:Order Comment: Specimen Type: BLOOD SPECIMENOrdering Facility: [facility] Address:[address] [place], [place] [address]Performed By: #### 16247-6 ####[facility] LABCLIA [id number] [place], [place] [address]Vzyq nitrogen [Mass/Vol]27 mg/dLHigh9-24Mercy Hospitalment on above:Order Comment: Specimen Type: BLOOD SPECIMENOrdering Facility: [facility] Address:[address] [place], [place] [address]Performed By: #### 18812-1 ####[facility] LABCLIA [id number] [place] [address] BRIEF OP NOTon 04-06-0815WMEKS OP NOTNormalCKindred Hospital LimaHISTORY PHYSICALon 97-84-3921KZVGSDB PHYSICALNormalCKindred Hospital LimaIR TRANSJUG LIVER BX W/PRESSon 19-81-4807JI TRANSJUG LIVER BX W/PRESSNoSelect Medical [facility] Rehabilitation Hospital - DublinNURSING PROGon 04-77-9660BCCCBSE PROGNormalMount Carmel Health System PT EDon 37-16-9195QQ EDNoSelect Medical [facility] Rehabilitation Hospital - DublinPathology biopsy report Abhijit (Tiss)on 42-12-4601EP DISCLAIMERNoRegency Hospital Company on above:Order Comment: Specimen Type: TISSUE SPECIMENOrdering Facility: [facility] Address: [address] [place], [place] [address]Result Comment: Laboratory Developed Test (LDT) Disclaimer:Performance characteristics of immunohistochemical, immunofluorescent, and chromogenic in-situ hybridization tests have been determined by the performing laboratory within [facility]'s [facility] HospitalFlorence [facility] Pathology and Laboratory Medicine Department ([facility], [facility], [facility], [facility], [facility], [facility], or [facility]) in a manner consistent with CLIA requirements. One or more of these tests may not have been cleared or approved by the FDA. RT-PLM is regulated under CLIA as qualified to perform high-complexity testing. These tests are used for clinical purposes. These should not be regarded as investigational or for research. Positive and negative controls stain appropriately.Performed By: #### 40243-1 ####[facility] LABCLIA [id number] [address] [address] [facility]PITALIRBLUFFTON [facility] LABORATORYCLIA [id number] [place] [address] [employer] OF AMERICACASE REPORTNoRegency Hospital Company on above:Order Comment: Specimen Type: TISSUE SPECIMENOrdering Facility: [facility] Address: [address] [place], [place] [address]Result Comment: Surgical Pathology Report Case: [id number] Provider: Isaiah Murry MD Collected: 02/02/2025 10:11 AMOrdering Location: [place] [address] Received: 02/02/2025 03:49 PMPathologist: Lucy Ngo MDSpecimen: Liver, BiopsyPerformed By: #### 18865-8 ####[facility] LABCLIA [id number] [address] STATES OF AMERICAFAMCLEAN SOUTHEAST LABORATORYCLIA [id number] [address] STATES OF [facility] BOARDMAN HOSPITALCLINICAL HISTORYelevated ALPNoSelect Medical OhioHealth Rehabilitation Hospital - DublinComhenry ford hospital on above:Order Comment: Specimen Type: TISSUE SPECIMENOrdering Facility: [facility] Address: [address] [place], [place] [address]Performed By: #### 35845-4 ####[facility] LABCLIA [id number] [address] LABORATORYCLIA [id number] [address] STATES OF AMERICADIAGNOSIS COMMENTNormProMedica Defiance Regional HospitalComhenry ford hospital on above:Order Comment: Specimen Type: TISSUE SPECIMENOrdering Facility: [facility] Address: [address] [place], [place] [address]Result Comment: The histologic examination shows 2 cores of liver parenchyma exhibiting adequate num stormy of portal tracts for histologic evaluation. Portal tracts exhibit minimal mixed inflammation composed of predominantly lymphocytes admixed with rare plasma cells and eosinophils. Ute bile ducts are identified along with bile [...] with the diagnostic interpretation. Performed By: #### 54227-6 ####[facility] LABCLIA [id number] [address] LABORATORYIA [id number] [address] DIAGNOSISNormSycamore Medical Center on above:Order Comment: Specimen Type: TISSUE SPECIMENOrdering Facility: [facility] Address: [address] [place], [place] [address]Result Comment: A. Liver, [place], biopsy:- Hepatic parenchyma with zone 3 patchy sinusoidal dilatation, patchy dilated/angulated portal vein branches, and pericellular fibrosis.- See comment. at 1452 EDTPerformed By: #### 64974-5 ####[facility] LABCLIA [id number] [address] LABORATORYIA [id number] [address] PERFORMING LABNoRegency Hospital Company on above:Order Comment: Specimen Type: TISSUE SPECIMENOrdering Facility: [facility] Address: [address] [place], [place] [address]Result Comment: Diagnostic interpretation performed at: [facility], [address] [place] [address] CLIA# [id number] Director: Kanchan Thompsonformed By: #### 19881-6 ####[facility] LABCLIA [id number] [address] LABORATORYCLIA [id number] [address]GRROXBOROUGH MEMORIAL [facility]PITAL DESCRIPTIONNormalCKindred Hospital LimaComment on above:Order Comment: Specimen Type: TISSUE SPECIMENOrdering Facility: [facility] Address: [address] [place], [place] [address]Result Comment: A. Liver, BiopsyReceived in formalin are two segments of cylindrical tissue aggregating to 1.5 x 0.2 x 0.1 cm, brown and of a soft and friable consistency. Totally submitted in one cassette.[facility] February 02, 2025 8:03 PMGross examination performed at [facility], [address] [place] [address] Performed By: #### 54697-7 ####[facility] LABCLIA [id number] [address] LABORATORYIA [id number] [address] STREETURSGAEBLER CHILDREN'S CENTER PROGon 60-43-2666BBAILMF PROGNormalMount Carmel Health SystemBathe medical center metabolic 2000 panelOrdered By: Sudha Granger on 01-25-2025 Anion gap [Moles/Vol]13 mmol/L8 - 15 mmol/LCleveland ClinicCalcium [Mass/Vol]9.8 mg/dL8.5 - 10.2 mg/dLSelect Medical Specialty Hospital - Cleveland-FairhillChloride [Moles/Vol]97 mmol/LLow98 - 107 mmol/LCleveland ClinicCO2 [Moles/Vol]25 mmol/L22 - 30 mmol/LCleveland [facility] Creatinine [Mass/Vol]1.55 mg/dLHigh0.73 - 1.22 mg/dLSelect Medical Specialty Hospital - Cleveland-FairhillGFR/1.73 sq M.predicted among non-blacks MDRD (S/P/Bld) [Vol [...] eGFRmay not accurately reflect actual GFR.Glucose [Mass/Vol]141 mg/sVAmfj62 - 99 mg/dLSelect Medical Specialty Hospital [facility] Comment on above:The [place] Diabetes Association (ADA) provides guidance for cutoff [...] Standards of Medical Care in Diabetes 2016, [place] Diabetes Association. Diabetes Care. 2016.39(Suppl 1). Interpretation and review of laboratory resultsAbnormalCleveland ClinicPotassium [Moles/Vol]3.7 mmol/L3.7 - 5.1 mmol/LCleveland ClinicSodium [Moles/Vol]135 mmol/ZXse691 - 144 mmol/LCleveland ClinicUrea nitrogen [Mass/Vol]56 mg/dLHigh9 - 24 mg/dLSelect Medical Specialty Hospital - CantonBasi metabolic 2000 panelon 01-25-2025 Anion gap [Moles/Vol]13 mmol/LNormal8-15Mount Carmel Health SystemComment on above:Order Comment: Specimen Type: BLOOD SPECIMENOrdering Facility: [facility] Address:[address] [place], [place] [address]Wbzxfdoxh By: #### 75904-4, 41565-1 ####[facility] LABCLIA [id number] [place], [place] [address]Yeymold [Mass/Vol]9.8 mg/dLNormal8.5-10.2 [facility] on above:Order Comment: Specimen Type: BLOOD SPECIMENOrdering Facility: [facility] Address:[address] [place], [place] [address]Performed By: #### 24044-8, 28123-7 ####[facility] LABCLIA [id number] [place], [place] [address]Xpwhmwxq [Moles/Vol]97 mmol/JDjw31-441UtikhvngeOhioHealth O'Bleness Hospital on above:Order Comment: Specimen Type: BLOOD SPECIMENOrdering Facility: [facility] Address:[address] [place], [place] [address]Performed By: #### 00819- 9, 08989-9 ####[facility] LABCLIA [id number] [place], [place] [address]UX2 [Moles/Vol]25 mmol/UAkxkic24-72GvgwsndsvOhioHealth O'Bleness Hospital on above:Order Comment: Specimen Type: BLOOD SPECIMENOrdering Facility: [facility] Address:[address] [place], [place] [address]Performed By: #### 48461-4, 83720-3 ####[facility] LABCLIA [id number] [place], [place] [address]Htdieuimzm [Mass/Vol] 1.55 mg/dLHigh0.73-1.22[facility] on above:Order Comment: Specimen Type: BLOOD SPECIMENOrdering Facility: [facility] Address:[address] [place], [place] [address]Performed By: #### 42551-6, 39751-6 ####[facility] LABCLIA [id number] [place], [place] [address]oFFPby SerPlBld CKD-EPI 195791 mL/min/1.73m???Low>=60 [facility] on above:Order Comment: Specimen Type: BLOOD SPECIMENOrdering Facility: [facility] Address:[address] [place], [place] [address]Result Comment: Estimated Glomerular Filtration Rate (eGFR) is calculated using the 2020 CKD-EPI creatinine equation. This equation utilizes serum creatinine, sex, and age as parameters. The creatinine assay has traceable calibration to isotope dilution-mass spectrometry. Refer to KDIGO guidelines for clinical interpretation. In patients with unstable renal function, e.g. those with acute kidney injury, the eGFR may not accurately reflect actual GFR.Performed By: #### 70162-0, 29481-5 ####[facility] LABCLIA [id number] [place], [place] [address]Ekdnwrq [Mass/Vol]141 mg/qCIyts53-53JuicbzmbsOhioHealth O'Bleness Hospital on above:Order Comment: Specimen Type: BLOOD SPECIMENOrdering Facility: [facility] Address:[address] [place], [place] [address]Result Comment: The [place] Diabetes Association (ADA) provides guidance for cutoff [...] Standards of Medical Care in Diabetes 2016, [place] Diabetes Association. Diabetes Care. 2016.39(Suppl 1).Performed By: #### 64781-8, 49265-1 ####[facility] LABCLIA [id number] [place] [address] Potassium [Moles/Vol]3.7 mmol/LNormal3.7-5.1CCherrington Hospital on above:Order Comment: Specimen Type: BLOOD SPECIMENOrdering Facility: [facility] Address:[address] [place] [address]Performed By: #### 21061-8, 27971-2 ####[facility] LABCLIA [id number] [place], [place] [address]Owqvhq [Moles/Vol]135 mmol/LXqe916-368 [facility] on above:Order Comment: Specimen Type: BLOOD SPECIMENOrdering Facility: [facility] Address:[address] [place] [address]Xaagakxhq By: #### 34987-6, 75417-7 ####[facility] LABCLIA [id number] [place], [place] [address]Yfpq nitrogen [Mass/Vol]56 mg/dLHigh9-24[facility] on above: Order Comment: Specimen Type: BLOOD SPECIMENOrdering Facility: [facility] Address:[address] [place], [place] [address]Performed By: #### 76193- 9, 43363-7 ####[facility] LABCLIA [id number] [place], [place] [address]YKG panel Auto (Bld)on 05-29-9328Uproclvejwu distribution width (RBC) [Ratio]14.7 %11.5 - 15.0 %[facility]-FairhillHematocrit (Bld) [Volume fraction]37.9 %Low39.0 - 51.0 %[facility]-FairhillHemoglobin (Bld) [Mass/Vol]12.2 g/dLLow13.0 - 17.0 g/dLSelect Medical Specialty Hospital - Cleveland-FairhillInterpretation and review of laboratory resultsAbnormalCCleveland Clinic Akron GeneralH (RBC) [Entitic mass]32.5 pg26.0 - 34.0 pgCCleveland Clinic Akron GeneralHC (RBC) [Mass/Vol]32.2 g/dL30.5 - 36.0 g/dLProMedica Toledo HospitalV (RBC) [Entitic vol]101.1 fJAajp78.0 - 100.0 [facility] Nucleated RBC (Bld) [#/Vol]NINFCMiami Valley HospitalPlatelet mean volume (Bld) [Entitic vol]9.8 fL9.0 - 12.7 fLCMiami Valley HospitalPlatelets (Bld) [#/Vol]197 10*3/uLSelect Medical Specialty Hospital - Cleveland-FairhillRBC (Bld) [#/Vol]3.75 10*6/uLLow4.20 - 6.00 m/[facility]. Charles HospitalWBC (Bld) [#/Vol]8.05 10*3/Fairfield Medical CenterErythrocyte distribution width (RBC) [Ratio]14.7 %Xggbzc26.5-15.0[facility] Comment on above:Order Comment: Specimen Type: BLOOD SPECIMENOrdering Facility: [facility] Address:[address] [place] [address] Performed By: #### 66653-2 ####[facility] LABCLIA [id number] [place], [place] [address]Nrlxvgnwjn (Bld) [Volume fraction]37.9 %Low39.0-51.0Mercy Hospitalment on above:Order Comment: Specimen Type: BLOOD SPECIMENOrdering Facility: [facility] Address:[address] [place], [place] [address]Performed By: #### 56823- 2 ####[facility] LABCLIA [id number] [place], [place] [address]Edimfejxfq (Bld) [Mass/Vol]12.2 g/dLLow13.0-17.0[facility] Carmel Health SystemComment on above:Order Comment: Specimen Type: BLOOD SPECIMENOrdering Facility: [facility] Address:[address] [place], [place] [address]Performed By: #### 48041-3 ####[facility] LABCLIA [id number] [place], [place] [address]YPL (RBC) [Entitic mass]32.5 iwPrqerf73.0-34.0[facility] on above: Order Comment: Specimen Type: BLOOD SPECIMENOrdering Facility: [facility] Address:[address] [place], [place] [address]Performed By: #### 83896- 2 ####[facility] LABCLIA [id number] [place], [place] [address]LEYB (RBC) [Mass/Vol]32.2 g/iPMsemga12.5-36.0[facility] on above:Order Comment: Specimen Type: BLOOD SPECIMENOrdering Facility: [facility] Address:[address] [place], [place] [address]Performed By: #### 15136-1 ####[facility] LABCLIA [id number] [place], [place] [address]EZT (RBC) [Entitic vol]101.1 eMCclc23.0-100.0[facility] on above: Order Comment: Specimen Type: BLOOD SPECIMENOrdering Facility: [facility] Address:[address] [place], [place] [address]Performed By: #### 50335- 2 ####[facility] LABCLIA [id number] [place], [place] [address]Ooccapank RBC (Bld) [#/Vol]10*3/uLNormal<0.01[facility] on above:Order Comment: Specimen Type: BLOOD SPECIMENOrdering Facility: [facility] Address:[address] [place], [place] [address]Performed By: #### 14000-1 ####[facility] LABCLIA [id number] [place], [place] [address]Lvfwtocm mean volume (Bld) [Entitic vol]9.8 fLNormal9.0-12.7CCherrington Hospital on above:Order Comment: Specimen Type: BLOOD SPECIMENOrdering Facility: [facility] Address:[address] [place] [address] Performed By: #### 67936-5 ####[facility] LABIA [id number] [place], [place] [address]Zamziopfg (Bld) [#/Vol]197 10*3/qDFzuflu389-871HbmyyvcbtOhioHealth O'Bleness Hospital on above:Order Comment: Specimen Type: BLOOD SPECIMENOrdering Facility: [facility] Address:[address] [place] [address]Hkekhejcw By: #### 79489-6 ####[facility] LABCLIA [id number] [place], [place] [address]NPO (Bld) [#/Vol]3.75 10*6/uLLow4.20-6.00[facility] on above:Order Comment: Specimen Type: BLOOD SPECIMENOrdering Facility: [facility] Address:[address] [place], [place] [address]Performed By: #### 89647-4 ####[facility] LABCLIA [id number] [place], [place] [address]NJC (Bld) [#/Vol]8.05 10*3/uL Normal3.70-11.00[facility] on above:Order Comment: Specimen Type: BLOOD SPECIMENOrdering Facility: [facility] Address:[address] [place], [place] [address]Performed By: #### 70448-7 ####[facility] LABCLIA [id number] [place], [place] [address]PBIATMJIDvv 63-94-2599Atexjlexm [Mass/Vol]2.2 mg/dL1.7 - 2.3 mg/dLSelect Medical Specialty Hospital - Cleveland-FairhillMagnesium SerPl-mCncon 24-27-5450Goorfcpck [Mass/Vol] 2.2 mg/dLNormal1.7-2.3CCherrington Hospital on above:Order Comment: Specimen Type: BLOOD SPECIMENOrdering Facility: [facility] Address:[address] [place], [place] [address]Performed By: #### 12080-3, 75779-4 ####[facility] LABIA [id number] [place], [place] [address]Ulxoavewt [Mass/Vol]on 04-18-2239Xnwrtqtylckrjg and review of laboratory resultsNormalCUC Medical CenterCNOVon 51-09-5888KDQHFnfuozIzhsynoyuSelect Medical [facility] Hospital - DublinA1AT SerPl-mCncon 48-05-6593Ybbcc 1 antitrypsin [Mass/Vol]167 mg/xYHrnbwi73-302JuxiojkvtOhioHealth O'Bleness Hospital on above:Order Comment: Specimen Type: BLOOD SPECIMENOrdering Facility: [facility] Address:[address] [place] [address] Performed By: #### 30254-7, 1825-9, 2324-2, 2276-4 ####[facility] LABCLIA [id number] [place] [id number] [place] AMER[place] BY IFA WITH REFLEXon 70-06-4868Bocxsmu Ab Ql (S)Negative NormalNegativeOhioHealth O'Bleness Hospital on above:Order Comment: Specimen Type: BLOOD SPECIMENOrdering Facility: [facility] Address:[address] [place], [place] [address]Result Comment: Anti-nuclear antibody test is used as an aid in diagnosis of systemic autoimmune diseases. Where positive and clinically warranted, follow-up using disease-specific testing is recommended. Low positive titers are not uncommon with advanced age, certain chronic infections, and malignancies among others.Test methodology: Indirect fluorescence immunoassay (IFA) using HEp-2 cells.Performed By: #### ANAIFR ####[facility] LABCLIA [id number] [address] STATES OF [facility] BOARDMAN HOSPITALCBC panel Auto (Bld)on 01-08-2025 Erythrocyte distribution width (RBC) [Ratio]15.8 %High11.5-15.0[facility] on above:Order Comment: Specimen Type: BLOOD SPECIMENOrdering Facility: [facility] Address:[address] [place], [place] [address]Performed By: #### 57721-2 ####[facility] LABCLIA [id number] [place], [place] [address]Ermcdsdxei (Bld) [Volume fraction]37.0 %Low39.0-51.0[facility] on above:Order Comment: Specimen Type: BLOOD SPECIMENOrdering Facility: [facility] Address:[address] [place], [place] [address]Performed By: #### 49723- 2 ####[facility] LABCLIA [id number] [place], [place] [address]Zspafypmvu (Bld) [Mass/Vol]11.7 g/dLLow13.0-17.0[facility] on above:Order Comment: Specimen Type: BLOOD SPECIMENOrdering Facility: [facility] Address:[address] [place], [place] [address]Performed By: #### 84885-3 ####[facility] LABCLIA [id number] [place], [place] [address]CVP (RBC) [Entitic mass]32.7 gmWyvtnr01.0-34.0[facility] on above: Order Comment: Specimen Type: BLOOD SPECIMENOrdering Facility: [facility] Address:[address] [place], [place] [address]Performed By: #### 78269- 2 ####[facility] LABCLIA [id number] [place], [place] [address]GJTC (RBC) [Mass/Vol]31.6 g/qWCrwtng80.5-36.0[facility] on above:Order Comment: Specimen Type: BLOOD SPECIMENOrdering Facility: [facility] Address:[address] [place], [place] [address]Performed By: #### 43456-4 ####[facility] LABCLIA [id number] [place], [place] [address]VQQ (RBC) [Entitic vol]103.4 gKAyha59.0-100.0[facility] on above: Order Comment: Specimen Type: BLOOD SPECIMENOrdering Facility: [facility] Address:[address] [place], [place] [address]Performed By: #### 92317- 2 ####[facility] LABCLIA [id number] [place], [place] [address]Roftqigyo RBC (Bld) [#/Vol]10*3/uLNormal<0.01[facility] on above:Order Comment: Specimen Type: BLOOD SPECIMENOrdering Facility: [facility] Address:[address] [place], [place] [address]Performed By: #### 41158-7 ####[facility] LABCLIA [id number] [place], [place] [address]Qxcufvit mean volume (Bld) [Entitic vol]9.7 fLNormal9.0-12.7CCherrington Hospital on above:Order Comment: Specimen Type: BLOOD SPECIMENOrdering Facility: [facility] Address:[address] [place] [address] Performed By: #### 66807-7 ####[facility] LABCLIA [id number] [place], [place] [address]Injmpwgmf (Bld) [#/Vol]228 10*3/yLKlplol244-802SbfepckvqOhioHealth O'Bleness Hospital on above:Order Comment: Specimen Type: BLOOD SPECIMENOrdering Facility: [facility] Address:[address] [place], [place] [address]Performed By: #### 57319-0 ####[facility] LABCLIA [id number] [place], [place] [address]UVW (Bld) [#/Vol]3.58 10*6/uLLow4.20-6.00[facility] on above:Order Comment: Specimen Type: BLOOD SPECIMENOrdering Facility: [facility] Address:[address] [place], [place] [address]Performed By: #### [id number] ####[facility] LABCLIA [id number] [place], [place] [address]OSA (Bld) [#/Vol]9.63 10*3/uL Normal3.70-11.00[facility] on above:Order Comment: Specimen Type: BLOOD SPECIMENOrdering Facility: [facility] Address:[address] [place], [place] [address]Performed By: #### [id number] ####[facility] LABCLIA [id number] [place], [place] [address]SCQ IgM Qnon [id number] IGM, QUALPositiveAbnormal NegativeOhioHealth O'B[facility] on above:Order Comment: Specimen Type: BLOOD SPECIMENOrdering Facility: [facility] Address:[address] [place], [place] [address]Result Comment: The result suggests recent infection with Cytomegalovirus (CMV) or recent CMV reactivation. CMV IgM levels may remain elevated for extended periods after a primary infection. Clinical correlation is required.Performed By: #### 7853-5 ####[facility] LABCLIA [id number] [place] [address] [place] OF AMERICAComprehensive metabolic 2000 panelon 13-20-5882Rbdrvwh [Mass/Vol]4.1 g/dLNormal3.9-4.9CCherrington Hospital on above:Order Comment: Specimen Type: BLOOD SPECIMENOrdering Facility: [facility] Address:[address] [place], [place] [address]Performed By: #### 14790- 8 ####[facility] LABCLIA [id number] [place], [place] [address]FRR [Catalytic activity/Vol]92 U/TYkkddv35-482YadracnwcOhioHealth O'Bleness Hospital on above:Order Comment: Specimen Type: BLOOD SPECIMENOrdering Facility: [facility] Address:[address] [place], [place] [address]Performed By: #### 15997-8 ####[facility] LABCLIA [id number] [place], [place] [address]LGX [Catalytic activity/Vol]18 U/ETklwqa90-31GfsvawetwOhioHealth O'Bleness Hospital on above:Order Comment: Specimen Type: BLOOD SPECIMENOrdering Facility: [facility] Address:[address] [place], [place] [address]Performed By: #### 04154- 8 ####[facility] LABCLIA [id number] [place], [place] [address]Cgyvu gap [Moles/Vol]8 mmol/LNormal8-15[facility] on above:Order Comment: Specimen Type: BLOOD SPECIMENOrdering Facility: [facility] Address:[address] [place], [place] [address]Performed By: #### 11028-1 ####[facility] LABCLIA [id number] [place], [place] [address]NGU [Catalytic activity/Vol]5 U/RWvi34-10CckskhghuOhioHealth O'Bleness Hospital on above:Order Comment: Specimen Type: BLOOD SPECIMENOrdering Facility: [facility] Address:[address] [place], [place] [address]Performed By: #### 03314-6 ####[facility] LABCLIA [id number] [place] [address] Bilirubin [Mass/Vol]0.6 mg/dLNormal0.2-1.3CCherrington Hospital on above:Order Comment: Specimen Type: BLOOD SPECIMENOrdering Facility: [facility] Address:[address] [place], [place] [address]Performed By: #### 04804-5 ####[facility] LABCLIA [id number] [place], [place] [address]Pfmccpx [Mass/Vol]9.2 mg/dLNormal8.5-10.2CCherrington Hospital on above:Order Comment: Specimen Type: BLOOD SPECIMENOrdering Facility: [facility] Address:[address] [place], [place] [address]Performed By: #### 10086-6 ####[facility] LABCLIA [id number] [place], [place] [address]Ifddhooa [Moles/Vol]101 mmol/KCuacwu54-003LyhyugvssOhioHealth O'Bleness Hospital on above: Order Comment: Specimen Type: BLOOD SPECIMENOrdering Facility: [facility] Address:[address] [place], [place] [address]Performed By: #### 58757- 8 ####[facility] LABCLIA [id number] [place], [place] [address]GZ6 [Moles/Vol]29 mmol/VHladal32-58VxzlbfyupMount Carmel Health SystemComhenry ford hospital on above:Order Comment: Specimen Type: BLOOD SPECIMENOrdering Facility: [facility] Address:[address] [place], [place] [address]Performed By: #### 29355-1 ####[facility] LABIA [id number] [place], [place] [address]Kfaatpwwbz [Mass/Vol]1.46 mg/dL High0.73-1.22[facility] on above:Order Comment: Specimen Type: BLOOD SPECIMENOrdering Facility: [facility] Address:[address] [place], [place] [address]Performed By: #### 16337-0 ####[facility] LABIA [id number] [place] [address] eGFRcr SerPlBld CKD-EPI 873766 mL/min/1.73m???Low>=60[facility] Comment on above:Order Comment: Specimen Type: BLOOD SPECIMENOrdering Facility: [facility] Address:[address] [place], [place] [address]Result Comment: Estimated Glomerular Filtration Rate (eGFR) is calculated using the 2020 CKD-EPI creatinine equation. This equation utilizes serum creatinine, sex, and age as parameters. The creatinine assay has traceable calibration to isotope dilution-mass spectrometry. Refer to KDIGO guidelines for clinical interpretation. In patients with unstable renal function, e.g. those with acute kidney injury, the eGFR may not accurately reflect actual GFR.Performed By: #### 58028-5 ####[facility] LABCLIA [id number] [place], [place] [address]Keclyxb [Mass/Vol]116 mg/qGBpnh04-07FiwuqgjvgOhioHealth O'Bleness Hospital on above:Order Comment: Specimen Type: BLOOD SPECIMENOrdering Facility: [facility] Address:[address] [place] [address]Xndiuu Comment: The [place] Diabetes Association (ADA) provides guidance for cutoff [...] Standards of Medical Care in Diabetes 2016, [place] Diabetes Association. Diabetes Care. 2016.39(Suppl 1).Performed By: #### 07114-5 ####[facility] LABCLIA [id number] [place], [place] [address]Ptvwswulu [Moles/Vol]3.9 mmol/LNormal3.7-5.1CCherrington Hospital on above:Order Comment: Specimen Type: BLOOD SPECIMENOrdering Facility: [facility] Address:[address] [place] [address]Vkliwlpai By: #### 42117-7 ####[facility] LABCLIA [id number] [place], [place] [address]Kkbtjny [Mass/Vol]7.4 g/dLNormal6.3-8.0[facility] on above:Order Comment: Specimen Type: BLOOD SPECIMENOrdering Facility: [facility] Address:[address] [place], [place] [address]Performed By: #### 72606- 8 ####[facility] LABCLIA [id number] [place], [place] [address]Mjweqp [Moles/Vol]138 mmol/KOsivpa978-269CxwgsjnfqOhioHealth O'Bleness Hospital on above:Order Comment: Specimen Type: BLOOD SPECIMENOrdering Facility: [facility] Address:[address] [place], [place] [address]Performed By: #### 62097-0 ####[facility] LABCLIA [id number] [place], [place] [address]Ghny nitrogen [Mass/Vol]56 mg/dLHigh9-24[facility] on above:Order Comment: Specimen Type: BLOOD SPECIMENOrdering Facility: [facility] Address:[address] [place], [place] [address]Performed By: #### 47182-0 ####[facility] LABCLIA [id number] [place] [address] Ferritin SerPl-mCncon 25-22-3070Eujajhjt [Mass/Vol]71.9 ng/cKXmunmq29.3-565.7 [facility] on above:Order Comment: Specimen Type: BLOOD SPECIMENOrdering Facility: [facility] Address:[address] [place], [place] [address]Performed By: #### 64344-5, 2-9, 2323-2, 2275-4 ####[facility] LABCLIA [id number] [place] [address] [place] OF AMERICAGGT SerPl-cCncon 12-61-4162Xindl glutamyl transferase [Catalytic activity/Vol]123 U/SOfnu50-12IfzlumizsOhioHealth O'Bleness Hospital on above:Order Comment: Specimen Type: BLOOD SPECIMENOrdering Facility: [facility] Address:[address] [place], [place] [address]Performed By: #### 19205-3, -9, 2323-2, 2275-4 ####[facility] LABCLIA [id number] [place] [address] [place] OF AMERICAHBV core Ab Ser Qlon 65-80-3359OCS core Ab Ql (S) NegativeNormalNegativeOhioHealth O'Bleness Hospital on above:Order Comment: Specimen Type: BLOOD SPECIMENOrdering Facility: [facility] Address:[address] [place], [place] [address]Result Comment: No evidence of current or past infection with Hepatitis B virus. Should recent infection be suspected, repeat testing may be considered 3-4 weeks after this draw.Performed By: #### 21692-6, 02731-8, 5-3 ####[facility] LABIA [id number] [address] [place] HBV surface Ab Ql (S)on 77-28-9626ILL surface Ab Qn (S)<8.00NoRegency Hospital Company on above:Order Comment: Specimen Type: BLOOD SPECIMENOrdering Facility: [facility] Address:[address] [place], [place] [address]Result Comment: <8 mIU/mL: No serological evidence of immunity to Hepatitis B Virus.>/= 8 to <12 mIU/mL: No serological evidence of immunity to Hepatitis B Virus.>/= 12 mIU/mL: Consistentwith serological evidence of immunity to Hepatitis B Virus.Performed By: #### 82225-8, 70426-9, 5-3 ####[facility] LABIA [id number] STATES OF [facility]DMAN HOSPITALHBV surface Ab Ser Qlon 08-16-6776DSU surface Ab Ql (S)NegativeNormSycamore Medical Center on above:Order Comment: Specimen Type: BLOOD SPECIMENOrdering Facility: [facility] Address:[address] [place], [place] [address]Result Comment: No serological evidence of immunity to Hepatitis B Virus.Performed By: #### 19389-9, 39931-1, 5-3 ####[facility] LABCLIA [id number] [place]IL[place] [address] [place] HBV surface Ag Ser Qlon 84-22-7603DJS surface Ag Ql (S)NegativeNormalNegative [facility] on above:Order Comment: Specimen Type: BLOOD SPECIMENOrdering Facility: [facility] Address:[address] [place], [place] [address]Performed By: #### 26914-8, 16205-7, 5195-3 ####[facility] LABCLIA [id number] VIL[place] [address] [place] OF AMERICAHCV Ab Ser Qlon 13-50-9970YDI Ab Ql (S)Negative NormalNegativeOhioHealth O'Bleness Hospital on above:Order Comment: Specimen Type: BLOOD SPECIMENOrdering Facility: [facility] Address:[address] [place], [place] [address]Result Comment: The result suggests no evidence of infection with Hepatitis C virus. Should recent infection be suspected, repeat testing may be considered 4-6 weeks after this draw.Performed By: #### 02176-3 ####[facility] LABCLIA [id number] [place] [address] [place] OF AMERICAIron and Iron binding capacity panelon 62-34-1792Scli [Mass/Vol]63 ug/aXMwszby01-744XxihbjumbOhioHealth O'Bleness Hospital on above:Order Comment: Specimen Type: BLOOD SPECIMENOrdering Facility: [facility] Address:[address] [place], [place] [address]Performed By: #### 68568-6, 5-9, 2324-2, 2276-4 ####[facility] LABCLIA [id number] [address] STATES OF AMERICAIron binding capacity [Mass/Vol]379 ug/tWQxbkqx298-524 [facility] on above:Order Comment: Specimen Type: BLOOD SPECIMENOrdering Facility: [facility] Address:[address] [place], [place] [address]Performed By: #### 49835-4, 1825-9, 2324-2, 2276-4 ####[facility] LABCLIA [id number] [address]CL[place] AVENUEDESK [id number] [place], [place] [address]Iron/TIBC [Molar ratio]16.6 % Juarzr45.0-57.0[facility] on above:Order Comment: Specimen Type: BLOOD SPECIMENOrdering Facility: [facility] Address:[address] [place], [place] [address]Performed By: #### 84937-2, 1825-9, 2324-2, 2276-4 ####[facility] LABCLIA [id number] [address]REETLIVER-KIDNEY MICROSOME ANTIBODY, IGGon 41-24-2636ISPOW-KIDNEY MICROSOMAL ABS<1:20Normal<1:20[facility] on above:Order Comment: Specimen Type: BLOOD SPECIMENOrdering Facility: [facility] Address:[address] [place], [place] [address]Result Comment: INTERPRETIVE INFORMATION: Ekiwp-Bwfpag-Kxaklumio Abs, IgGLiver-Kidney Microsome IgGantibody (anti-LKM), as detected byindirect immunofluorescent antibody (IFA) techniques, may beobserved in patients with autoimmune hepatitis type 2 (AIH-2),AIH-2 associated with rftkevhrmxrjvcjbnqiiqajrpvtt-vogzndexwcs-ddftodpacc dystrophy (APECED),viral hepatitis C or D, and some forms of drug-induced hepatitis.This IFA does not differentiate among the four types of LKMantibodies (LKM-1, LKM-2,LKM-3, and a fourth type that fwgtbhlyudGRD8I8 and CY antigens). Of these, anti-LKM-1 (xdxohtdruvC445QDZ7) IgG antibodies are considered specific for AIH-2.This test was developed and its performance characteristicsdetermined by [employer]. It has not been cleared orapproved by the [place] Food and Drug Administration. This test wasperformed in a CLIA certified laboratory and is intended forclinical purposes.Performed By: [facility] [place] [address]Obrdfnwpyi Director: Anne-Marie Correa MD, PhDCLIA Number: [id number] By: #### LKM ####[facility] [id number] [place], [place] [address]Idvhuexyqvss Ab IF Ql (S)on 70-20-0970Onnrhvliaaxv M2 Ab IA Qn (S)4.9 UnitsNormal<=20.0Mercy Hospitalment on above: Order Comment: Specimen Type: BLOOD SPECIMENOrdering Facility: [facility] Address:[address] [place], [place] [address]Performed By: #### 68355- 1, 90371-2 ####[facility] LABCLIA [id number] JUMPING BRANCH A VENUEDESK [address]ETMitochondria M2 Ab Ql (S)NegativeNormalNegativeOhioHealth O'Bleness Hospital on above:Order Comment: Specimen Type: BLOOD SPECIMENOrdering Facility: [facility] Address:[address] [place], [place] [address]Result Comment: Anti- mitochondrial antibody test is used as an aid in diagnosis of primary biliary c holangitis. Clinical correlation is required.Performed By: #### 68991-8, 22084-6 ####[facility] LABCLIA [id number] [address]PR[address] JOSEPH MEDICAL CENTERK [address]ETPT panel Coag (PPP)on 01-08-2025 INR Coag (PPP) [Relative time]1.1 {INR}Normal0.9-1.3CKindred Hospital Lima Comment on above:Order Comment: Specimen Type: BLOOD SPECIMENOrdering Facility: [facility] Address:[address] [place], [place] [address]Result Comment: Vitamin K Antagonist (VKA) Therapeutic Range: INR 2 to 3 (Target INR of 2.5)Note: For patients treated with VKA drugs, such as warfarin, the [place] College of Chest Physicians 2012 Guideline recommends [...] al. Chest 2012, 141:7S-47SNishimcecil RA, et al. [facility] 2017, 70: 252-289Performed By: #### 50108-2 ####[facility] LABIA [id number] [address] STATES OF [facility] HOSPITALPT Coag (PPP) [Time] 12.2 sNormal9.7-13.0[facility] on above:Order Comment: Specimen Type: BLOOD SPECIMENOrdering Facility: [facility] Address:[address] [place], [place] [address]Performed By: #### 59218-3 ####[facility] [id number] [address] STATES OF [facility] HOSPITALSmooth muscle Ab Ql (S)on 43-59-9343ZQRXL SMOOTH MUSCLE IGG QUALITATIVENegativeNormalNegativeOhioHealth O'Bleness Hospital on above:Order Comment: Specimen Type: BLOOD SPECIMENOrdering Facility: [facility] Address:[address] [place], [place] [address]Performed By: #### 62867-8, 70491-0 ####[facility] [id number] [address] STATES OF [facility] BOARDMAN HOSPITALACTIN SMOOTH MUSCLE IGG GFZAHBFFIQRX07 UnitsNormal<20[facility] on above:Order Comment: Specimen Type: BLOOD SPECIMENOrdering Facility: [facility] Address:[address] [place], [place] [address]Performed By: #### 16166-3, 90185-2 ####[facility] LABIA [id number] [place] [id number] [place] OF AMERICAXR CHEST 2V FRONTAL/LATon 80-44-0465MS CHEST 2V FRONTAL/LAT NormalCleFairfield Medical CenterBathe medical center metabolic 2000 panelon 29-59-5763Islwv gap [Moles/Vol]12 mmol/LNormal8-15[facility] on above:Order Comment: Specimen Type: BLOOD SPECIMENOrdering Facility: [facility] Address:[address] [place], [place] [address]Performed By: #### 73075- 2 ####[facility] LABCLIA [id number] [place] [id number] [place] AMERICACalcium [Mass/Vol]9.6 mg/dLNormal 8.5-10.2CCherrington Hospital on above:Order Comment: Specimen Type: BLOOD SPECIMENOrdering Facility: [facility] Address:[address] [place], [place] [address]Performed By: #### 93648-4 ####[facility] LABCLIA [id number] [place] [id number] [place] OF AMERICAChloride [Moles/Vol]98 mmol/ARldduj50-883DjicmssoxOhioHealth O'Bleness Hospital on above:Order Comment: Specimen Type: BLOOD SPECIMENOrdering Facility: [facility] Address:[address] [place], [place] [address]Performed By: #### 80581-8 ####[facility] LABCLIA [id number] [address] [address] [place] AMERICACO2 [Moles/Vol]26 mmol/XHwcaol99-03HedtfvyqmOhioHealth O'Bleness Hospital on above:Order Comment: Specimen Type: BLOOD SPECIMENOrdering Facility: [facility] Address:[address] [place], [place] [address]Performed By: #### 24138-7 ####[facility] LABCLIA [id number] [place] [id number] [place] AMERICACreatinine [Mass/Vol] 1.60 mg/dLHigh0.73-1.22[facility] on above:Order Comment: Specimen Type: BLOOD SPECIMENOrdering Facility: [facility] Address:[address] [place], [place] [address]Performed By: #### 02792-9 ####[facility] [id number] [place] [address] [place] AMERICACreatinine and Glomerular filtration rate.predicted panel (S/P/Bld)45 mL/min/1.73m???Low>=60[facility] on above:Order Comment: Specimen Type: BLOOD SPECIMENOrdering Facility: [facility] Address:[address] [place], [place] [address]Result Comment: Estimated Glomerular Filtration Rate (eGFR) is calculated using the 2020 CKD-EPI creatinine equation. This equation utilizes serum creatinine, sex, and age as parameters. The creatinine assay has traceable calibration to isotope dilution-mass spectrometry. Refer to KDIGO guidelines for clinical interpretation. In patients with unstable renal function, e.g. those with acute kidney injury, the eGFR may not accurately reflect actual GFR.Performed By: #### 02281-3 ####[facility] LABIA [id number] [place] [address] [place] AMERICAGlucose [Mass/Vol]119 mg/nQCjhs72-81RmrqyujzmOhioHealth O'Bleness Hospital on above:Order Comment: Specimen Type: BLOOD SPECIMENOrdering Facility: [facility] Address:[address] [place], [place] [address]Result Comment: The [place] Diabetes Association (ADA) provides guidance for cutoff [...] Standards of Medical Care in Diabetes 2016, [place] Diabetes Association. Diabetes Care. 2016.39(Suppl 1).Performed By: #### 46390-2 ####[facility] LABCLIA [id number] [place] [id number] [place] AMERICAPotassium [Moles/Vol]4.3 mmol/LNormal3.7-5.1CKindred Hospital Lima Comment on above:Order Comment: Specimen Type: BLOOD SPECIMENOrdering Facility: [facility] Address:[address] [place] [address] Performed By: #### 67952-2 ####[facility] LABCLIA [id number] [place] [address] [place] Sodium [Moles/Vol]136 mmol/XTmendg815-693WkcpdehlcMount Carmel Health SystemComment on above:Order Comment: Specimen Type: BLOOD SPECIMENOrdering Facility: [facility] Address:[address] [place], [place] [address]Performed By: #### 80778-2 ####[facility] LABCLIA [id number] [place] [address] [place] AMERICAUrea nitrogen [Mass/Vol]45 mg/dLHigh9-24[facility] Carmel Health SystemComment on above:Order Comment: Specimen Type: BLOOD SPECIMENOrdering Facility: [facility] Address:[address] [place], [place] [address]Performed By: #### 05607- 2 ####[facility] LABIA [id number] [place] [address] [place] AMERICAPVR LEG ROCIO VAS LABon 12-16-2024 PVR LEG ROCIO VAS LABNormalCKindred Hospital LimaUS VENOUS INCOMPETENCY ROCIO VAS LABon 30-32-2648PL VENOUS INCOMPETENCY ROCIO VAS LABNormalCKindred Hospital LimaCNOVon 42-67-4816GEXJNowmgpXhtpltfds [facility] GreensboroCNPNon 11-23-2024 CNPNNormalMount Carmel Health SystemUS ABD RIGHT UPPER QUADRANTon 11-88-5325BQ ABD RIGHT UPPER QUADRANT* * *Final Report* [...] infiltrative diseases or in the post-prandial state. 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: ALONSO Transcribe Date/Time: Nov 26 2024 7:29A Dictated by : KRISTINA SALINAS MD This examination was interpreted and the report reviewed and electronically signed by: KRISTINA SALINAS MD on Nov 26 2024 7:35AM EST [id number] Community General HospitalUS ELASTOGRAPHY LIVERon 03-95-8691RP ELASTOGRAPHY LIVER* * *Final Report* * * [...] infiltrative diseases or in the post-prandial state. 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: ALONSO Transcribe Date/Time: Nov 26 2024 7:29A Dictated by : KRISTINA SALINAS MD This examination was interpreted and the report reviewed and electronically signed by: KRISTINA SALINAS MD on Nov 26 2024 7:35AM EST [id number] Community General HospitalXR CHEST 2V FRONTAL/LATon 11-23-2024 XR CHEST 2V FRONTAL/LATNoSelect Medical OhioHealth Rehabilitation Hospital - DublinXR Chest PA and Lateralon 96-09-2351XPUDFOPKIC: See result. 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: ALONOS Transcribe Date/Time: Nov 23 2024 1:39P Dictated [...] the left seventh rib. DIVISION OF RADIOLOGYProvider, [facility] [place] - 11/23/2024 * * *Final Report* * [...] left seventh rib. IMPRESSION IMPRESSION: See result. 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: ALONSO Transcribe Date/Time: Nov 23 2024 1:39P Dictated by : CRISTOBAL ROACH MD This examination was interpreted and the report reviewed and electronically signed by: CRISTOBAL ROACH MD on Nov 23 2024 1:42PM EST [facility]-FairhillRadiology Study observation (narrative)[facility]-FairhillXR Chest PA and LateralOrdered By: Ccf Provider on 57-60-9061Svfnmqyie ClinicCNOVon 06-70-2198OQECHhypcmEqimezwrz Clinic ClevelandCNOVon 86-41-6409KFVKWkgowz [facility] Health SystemOPERATIVE NOon 37-40-3240SJHNQQQOW NONormalMount Carmel Health SystemUS Chest limitedon 78-90-0945Ztdqsjnpz ClinicRadiology Study observation (narrative)[facility]-FairhillXR CHEST 1V FRONTAL PORTon 59-16-5368IN CHEST 1V FRONTAL PORTNormalCKindred Hospital LimaXR CHEST 2V FRONTAL/LATon 35-14-9052ZQ CHEST 2V FRONTAL/LATNormalCKindred Hospital LimaXR Chest PA and Lateralon 83-14-1935ROLOJWLBMW: See result 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: ALONSO Transcribe Date/Time: Nov 19 2024 3:58P Dictated by : KYLER NICHOLAS MD This examination was interpreted and the report reviewed and electronically signed by: KYLER NICHOLAS MD on Nov 19 2024 4:01PM [facility] DIVISION OF RADIOLOGY* * *Final Report* [...] of the left rib/ribs. DIVISION OF RADIOLOGYProvider, [facility] [place] - 11/19/2024 * * *Final Report* * [...] the left rib/ribs. IMPRESSION IMPRESSION: See result 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: PSCAc Transcribe Date/Time: Nov 19 2024 3:58P Dictated by : KYLER NICHOLAS MD This examination was interpreted and the report reviewed and electronically signed by: KYLER NICHOLAS MD on Nov 19 2024 4:01PM EST [facility]-FairhillRadiology Study observation (narrative)[facility] [place]-FairhillXR Chest PA and LateralOrdered By: Ccf Provider on 99-82-1299Xsczzaqwv ClinicCNPNon 79-28-9837RUZRWvmbogCtohufmbv Clinic ClevelandCOPPER BLOODon 83-72-1157Mqkyxj [Mass/Vol]159 ug/qDGdko96-501TjoineerxMount Carmel Health SystemComment on above:Order Comment: Specimen Type: BLOOD SPECIMENOrdering Facility: [facility] Address:[address] [place], [place] [id number] Comment: This test was developed, and its performance characteristics determined by the [facility] Department of Pathology and Laboratory Medicine. It has not been cleared or approved bythe FDA. The [facility] Department of Pathology and Laboratory Medicine is regulated under CLIA as qualified to perform high- complexity testing. This test is used for clinical purposes. It should not be regarded as investigational or for research.Performed By: #### COPPER ####[facility] LABCLIA [id number] [place] [address] [place] AMERICAComprehensive metabolic 2000 panelon 70-33-4854Fzwrjch [Mass/Vol]4.1 g/dLNormal3.9-4.9ClevelYadkin Valley Community HospitalComment on above:Order Comment: Specimen Type: BLOOD SPECIMENOrdering Facility: [facility] Address:[address] [place], [place] [address]Performed By: #### 83107-1, 40303-4 ####[facility] LABIA [id number] [place] [id number] [place] AMERICAALP [Catalytic activity/Vol]112 U/ISlxryt62-781PogvelxgiMount Carmel Health SystemComment on above:Order Comment: Specimen Type: BLOOD SPECIMENOrdering Facility: [facility] Address:[address] [place], [place] [address]Performed By: #### 72049-6, 66959-6 ####[facility] LABCLIA [id number] [place] [id number] [place] AMERICAALT [Catalytic activity/Vol]34 U/RTzarvo80-40NgbonbbhaMount Carmel Health System Comment on above:Order Comment: Specimen Type: BLOOD SPECIMENOrdering Facility: [facility] Address:[address] [place] [address] Performed By: #### 76971-2, 66952-9 ####[facility] LABCLIA [id number] [address] [place] [address] [place] Anion gap [Moles/Vol]12 mmol/LNormal8-15[facility] on above:Order Comment: Specimen Type: BLOOD SPECIMENOrdering Facility: [facility] Address:[address] [place], [place] [address]Performed By: #### 87384-1, ####[facility] LABCLIA [id number] [place] [address] [place] AMERICAAST [Catalytic activity/Vol]47 U/DJjky83-08WxopxlqdsOhioHealth O'Bleness Hospital on above:Order Comment: Specimen Type: BLOOD SPECIMENOrdering Facility: [facility] Address:[address] [place], [place] [address]Performed By: #### 58067- 8, ####[facility] LABCLIA [id number] [place] [address] [place] AMERICABilirubin [Mass/Vol]0.8 mg/dLNormal0.2-1.3CCherrington Hospital on above:Order Comment: Specimen Type: BLOOD SPECIMENOrdering Facility: [facility] Address:[address] [place], [place] [address]Performed By: #### 82758-4, ####[facility] LABCLIA [id number] [facility]ERK [address] STATES OF AMERICACalcium [Mass/Vol]9.5 mg/dLNormal 8.5-10.2CCherrington Hospital on above:Order Comment: Specimen Type: BLOOD SPECIMENOrdering Facility: [facility] Address:[address] [place], [place] [address]Performed By: #### 43707-5, ####[facility] LABCLIA [id number] [facility] [place] [address] [place] AMERICAChloride [Moles/Vol]97 mmol/DXyc33-220TeaoybjjdOhioHealth O'Bleness Hospital on above:Order Comment: Specimen Type: BLOOD SPECIMENOrdering Facility: [facility] Address:[address] [place], [place] [address]Performed By: #### 22103-4, ####[facility] LABCLIA [id number] [place] [id number] [place] AMERICACO2 [Moles/Vol]30 mmol/MSqltaa57-87CbuxxmakaMount Carmel Health System Comment on above:Order Comment: Specimen Type: BLOOD SPECIMENOrdering Facility: [facility] Address:[address] [place] [address] Performed By: #### 82175-2, ####[facility] LABIA [id number] [place] [address] [place] Creatinine [Mass/Vol]1.38 mg/dLHigh0.73-1.22Mercy Hospitalment on above:Order Comment: Specimen Type: BLOOD SPECIMENOrdering Facility: [facility] Address:[address] [place], [place] [address]Performed By: #### 46758-3, ####[facility] LABIA [id number] [place] [address] [place] [address] [address] [facility] HOSPITALCreatinine and Glomerular filtration rate.predicted panel (S/P/Bld)54 mL/min/1.73m???Low>=60 [facility] on above:Order Comment: Specimen Type: BLOOD SPECIMENOrdering Facility: [facility] Address:[address] [place], [place] [id number] Comment: Estimated Glomerular Filtration Rate (eGFR) is calculated using the 2020 CKD-EPI creatinine equation. This equation utilizes serum creatinine, sex, and age as parameters. The creatinine assay has traceable calibration to isotope dilution-mass spectrometry. Refer to KDIGO guidelines for clinical interpretation. In patients with unstable renal function, e.g. those with acute kidney injury, the eGFR may not accurately reflect actual GFR.Performed By: #### 37562-0, ####[facility] LABCLIA [id number] [place] [id number] [place] AMERICAGlucose [Mass/Vol]104 mg/uGCosa47-05EazchdpwaMount Carmel Health System Comment on above:Order Comment: Specimen Type: BLOOD SPECIMENOrdering Facility: [facility] Address:[address] [place], [place] [id number] Comment: The [place] Diabetes Association (ADA) provides guidance for cutoff [...] Standards of Medical Care in Diabetes 2016, [place] Diabetes Association. Diabetes Care. 2016.39(Suppl 1).Performed By: #### 89977-4, ####[facility] LABIA [id number] [place] [id number] [place] AMERICAPotassium [Moles/Vol]3.8 mmol/LNormal3.7-5.1CKindred Hospital LimaComment on above:Order Comment: Specimen Type: BLOOD SPECIMENOrdering Facility: [facility] Address:[address] [place], [place] [address]Performed By: #### 13941-9, ####[facility] LABIA [id number] [place] [id number] [place] AMERICAProtein [Mass/Vol]7.3 g/dLNormal6.3-8.0Mount Carmel Health SystemComhenry ford hospital on above:Order Comment: Specimen Type: BLOOD SPECIMENOrdering Facility: [facility] Address:[address] [place], [place] [address] Performed By: #### 44930-5, ####[facility] LABCLIA [id number] [place] [address] [place] Sodium [Moles/Vol]139 mmol/HXfjdse249-479RcqoxsfkwOhioHealth O'Bleness Hospital on above:Order Comment: Specimen Type: BLOOD SPECIMENOrdering Facility: [facility] Address:[address] [place], [place] [address]Performed By: #### 76477-5, 74717-0 ####[facility] LABIA [id number] [place] [address] [place] AMERICAUrea nitrogen [Mass/Vol]55 mg/dLHigh9-24[facility] on above:Order Comment: Specimen Type: BLOOD SPECIMENOrdering Facility: [facility] Address:[address] [place], [place] [address]Performed By: #### 68834- 8, 49360-0 ####[facility] LABIA [id number] [address] STATES OF AMERICAHAV IgM Ser Qlon 44-82-1510ZBW IgM Ql (S)NegativeNormalNegativeOhioHealth O'Bleness Hospital on above:Order Comment: Specimen Type: BLOOD SPECIMENOrdering Facility: [facility] Address:[address] [place], [place] [address]Result Comment: No evidence of recent infection with Hepatitis A virus.Performed By: #### 70551-1, 5195-3, 78790-6 ####[facility] LABIA [id number] [address] [place] HBV core IgM Ser Qlon 83-33-7312VQO core IgM Ql (S)NegativeNormalNegative [facility] on above:Order Comment: Specimen Type: BLOOD SPECIMENOrdering Facility: [facility] Address:[address] [place], [place] [address]Result Comment: No evidence of recent infection with Hepatitis B virus. Should recent infection be suspected, repeat testing may be considered 3-4 weeks after this draw.Performed By: #### 99152-7, 5195-3, 88375-0 ####[facility] LABCLIA [id number] [address] [place] AMERICAHBV surface Ag Ser Qlon 73-96-2445WOV surface Ag Ql (S)NegativeNormalNegativeMount Carmel Health System Comment on above:Order Comment: Specimen Type: BLOOD SPECIMENOrdering Facility: [facility] Address:[address] [place] [address] Performed By: #### 81707-1, 5195-3, 70336-1 ####[facility] LABIA [id number] [address] [place] AMERICAHCV Ab Ser Qlon 77-47-6067KKM Ab Ql (S)NegativeNormalNegativeMount Carmel Health SystemComment on above:Order Comment: Specimen Type: BLOOD SPECIMENOrdering Facility: [facility] Address:[address] [place], [place] [address]Result Comment: The result suggests no evidence of infection with Hepatitis C virus. Should recent infection be suspected, repeat testing may be considered 4-6 weeks after this draw.Performed By: #### 28126-7 ####[facility]ENTERIA [id number] [address] STATES OF AMERICAHCV RNA BRYN+probe Qnon 11-17-2024 HCV RNA BRYN+probe QlNot detectedNormalNot detectedMount Carmel Health System Comment on above:Order Comment: Specimen Type: BLOOD SPECIMENOrdering Facility: [facility] Address:[address] [place] [address] Performed By: #### 51860-9 ####[facility] LABIA [id number] [place] [address] [place] Iron and Iron binding capacity panelon 32-66-1019Mxsm [Mass/Vol]72 ug/dLNormal 41-186Mount Carmel Health SystemComment on above:Order Comment: Specimen Type: BLOOD SPECIMENOrdering Facility: [facility] Address:[address] [place], [place] [id number] By: #### 48700-9 ####[facility] LABIA [id number] [place] [id number] [place] [facility] HOSPITALIron binding capacity [Mass/Vol]321 ug/nMUvbrju497-486NmgykkgahMount Carmel Health SystemComhenry ford hospital on above:Order Comment: Specimen Type: BLOOD SPECIMENOrdering Facility: [facility] Address:[address] [place], [place] [address]Performed By: #### 84097-1 ####[facility] CENTERIA [id number] [address] STATES [facility] MEDICAL CENTERIron/TIBC [Molar ratio]22.4 %Eejmfw86.0-57.0[facility] Comment on above:Order Comment: Specimen Type: BLOOD SPECIMENOrdering Facility: [facility] Address:[address] [place] [address] Performed By: #### 17530-1 ####[facility]ENTERIA [id number] [place] [id number] [place] Magnesium SerPl-mCncon 76-65-0288Mqtpjcuhg [Mass/Vol]2.3 mg/dLNormal1.7-2.3 [facility] Health SystemComhenry ford hospital on above:Order Comment: Specimen Type: BLOOD SPECIMENOrdering Facility: [facility] Address:[address] [place], [place] [address]Performed By: #### 96194-2, 96599-6 ####[facility]ENTERIA [id number] [place] [id number] [place] AMERICACB W Auto Differential panel (Bld)on 44-37-6658Gcnwzuztn (Bld) [#/Vol]10*3/uLNormal<0.11CKindred Hospital LimaComment on above:Order Comment: Specimen Type: BLOOD SPECIMENOrdering Facility: [facility] Address:[address] [place], [place] [address]Performed By: #### 68286- 8 ####[facility] LABCLIA [id number] [address], [place] [address] [place] AMERICABasophils/100 WBC (Bld)0.2 % NormalOhioHealth O'Bleness Hospital on above:Order Comment: Specimen Type: BLOOD SPECIMENOrdering Facility: [facility] Address:[address] [place], [place] [address]Performed By: #### 35391-3 ####[facility] LABCLIA [id number] [address], [place] [address] [place] AMERICADifferential cell count method Nom (Bld)AutoNormalCCherrington Hospital on above:Order Comment: Specimen Type: BLOOD SPECIMENOrdering Facility: [facility] Address:[address] [place], [place] [address]Performed By: #### 57054-9 ####[facility] LABIA [id number] [address], [place] [address] [place] AMERICAEosinophils (Bld) [#/Vol]10*3/uLNormal<0.46[facility] Comment on above:Order Comment: Specimen Type: BLOOD SPECIMENOrdering Facility: [facility] Address:[address] [place] [address] Performed By: #### 26496-9 ####[facility] LABIA [id number] [address], [place] [address] [place] Eosinophils/100 WBC (Bld)0.0 %NormalOhioHealth O'Bleness Hospital on above: Order Comment: Specimen Type: BLOOD SPECIMENOrdering Facility: [facility] Address:[address] [place], [place] [address]Performed By: #### 75633- 8 ####[facility] LABIA [id number] [address], [facility] [place] AMERICAErythrocyte distribution width (RBC) [Ratio]16.6 %High11.5-15.0[facility] on above:Order Comment: Specimen Type: BLOOD SPECIMENOrdering Facility: [facility] Address:[address] [place], [place] [address]Performed By: #### 81378- 8 ####[facility] LABIA [id number] [place] [address] [place] AMERICAHematocrit (Bld) [Volume fraction]37.1 %Low39.0-51.0[facility] on above:Order Comment: Specimen Type: BLOOD SPECIMENOrdering Facility: [facility] Address:[address] [place], [place] [address]Performed By: #### 79904- 8 ####[facility] LABIA [id number] [place] [address] [place] AMERICAHemoglobin (Bld) [Mass/Vol]12.3 g/dLLow13.0-17.0[facility] on above:Order Comment: Specimen Type: BLOOD SPECIMENOrdering Facility: [facility] Address:[address] [place], [place] [address]Performed By: #### 10740-7 ####[facility] CENTERIA [id number] [place] [address] [place] AMERICAImmature granulocytes (Bld) [#/Vol]0.16 10*3/uLHigh<0.10[facility] on above:Order Comment: Specimen Type: BLOOD SPECIMENOrdering Facility: [facility] Address:[address] [place], [place] [address]Performed By: #### 40290- 8 ####[facility] LABIA [id number] [place] [address] [place] AMERICAImmature granulocytes/100 WBC (Bld)1.8 %NormalOhioHealth O'Bleness Hospital on above:Order Comment: Specimen Type: BLOOD SPECIMENOrdering Facility: [facility] Address:[address] [place], [place] [address]Performed By: #### 53085-5 ####[facility] LABIA [id number] [address], [place] [address] [place] OF AMERICALymphocytes (Bld) [#/Vol]0.91 10*3/uLLow1.00-4.00[facility] on above:Order Comment: Specimen Type: BLOOD SPECIMENOrdering Facility: [facility] Address:[address] [place], [place] [address]Performed By: #### 68780-7 ####[facility] LABIA [id number] [place] [address] [place] AMERICALymphocytes/100 WBC (Bld)10.4 % NormalOhioHealth O'Bleness Hospital on above:Order Comment: Specimen Type: BLOOD SPECIMENOrdering Facility: [facility] Address:[address] [place], [place] [address]Performed By: #### 33994-1 ####[facility] LABIA [id number] [place] [address] [place] AMERICAMCH (RBC) [Entitic mass]32.2 fvBozlqk01.0-34.0[facility] on above:Order Comment: Specimen Type: BLOOD SPECIMENOrdering Facility: [facility] Address:[address] [place], [place] [address]Performed By: #### 49837-6 ####[facility] LABIA [id number] [place] [id number] [place] MCHC (RBC) [Mass/Vol]33.2 g/sRNlluii07.5-36.0[facility] on above:Order Comment: Specimen Type: BLOOD SPECIMENOrdering Facility: [facility] Address:[address] [place] [address] Performed By: #### 26105-5 ####[facility] LABIA [id number] [place] [id number] [place] MCV (RBC) [Entitic vol]97.1 hKXpwtce80.0-100.0[facility] on above:Order Comment: Specimen Type: BLOOD SPECIMENOrdering Facility: [facility] Address:[address] [place] [address] Performed By: #### 46519-1 ####[facility] LABCLIA [id number] [place] [address] [place] Monocytes (Bld) [#/Vol]0.67 10*3/uLNormal<0.87[facility] on above:Order Comment: Specimen Type: BLOOD SPECIMENOrdering Facility: [facility] Address:[address] [place] [address] Performed By: #### 30499-2 ####[facility] LABIA [id number] [place] [address] [place] Monocytes/100 WBC (Bld)7.6 %NormalOhioHealth O'Bleness Hospital on above: Order Comment: Specimen Type: BLOOD SPECIMENOrdering Facility: [facility] Address:[address] [place], [place] [address]Performed By: #### 95998- 8 ####[facility] LABIA [id number] [place] [address] [place] AMERICANeutrophils (Bld) [#/Vol]7.03 10*3/uLNormal1.45-7.50[facility] on above:Order Comment: Specimen Type: BLOOD SPECIMENOrdering Facility: [facility] Address:[address] [place], [place] [address]Performed By: #### 75556-8 ####[facility] LABIA [id number] [place] [address] [place] AMERICANeutrophils/100 WBC (Bld)80.0 % NormalOhioHealth O'Bleness Hospital on above:Order Comment: Specimen Type: BLOOD SPECIMENOrdering Facility: [facility] Address:[address] [place], [place] [address]Performed By: #### 39929-4 ####[facility] LABIA [id number] [place] [address] [place] AMERICANucleated RBC (Bld) [#/Vol]10*3/uLNormal<0.01[facility] on above:Order Comment: Specimen Type: BLOOD SPECIMENOrdering Facility: [facility] Address:[address] [place], [place] [address]Performed By: #### 55220-3 ####[facility] LABIA [id number] [place] [address] [place] Nucleated RBC/100 WBC (Bld) [Ratio]0.0 /100 WBCNormalCKindred Hospital Lima Comment on above:Order Comment: Specimen Type: BLOOD SPECIMENOrdering Facility: [facility] Address:[address] [place] [address] Performed By: #### 80633-8 ####[facility] LABIA [id number] [place] [address] [place] Platelet mean volume (Bld) [Entitic vol]10.0 fLNormal9.0-12.7CCherrington Hospital on above:Order Comment: Specimen Type: BLOOD SPECIMENOrdering Facility: [facility] Address:[address] [place], [place] [address]Performed By: #### 70213-1 ####[facility] LABIA [id number] [place] [address] [place] Platelets (Bld) [#/Vol]189 10*3/aGHbiyes754-899AoibyvymjOhioHealth O'Bleness Hospital on above:Order Comment: Specimen Type: BLOOD SPECIMENOrdering Facility: [facility] Address:[address] [place] [address] Performed By: #### 31949-9 ####[facility] LABCLIA [id number] [place] [address] [place] RBC (Bld) [#/Vol]3.82 10*6/uLLow4.20-6.00Mer[facility] Hospitalment on above:Order Comment: Specimen Type: BLOOD SPECIMENOrdering Facility: [facility] Address:[address] [place], [place] [address]Performed By: #### 23084-8 ####[facility] LABCLIA [id number] [place] [address] [place] AMERICAWBC (Bld) [#/Vol]8.79 10*3/uLNormal3.70-11.00[facility] on above:Order Comment: Specimen Type: BLOOD SPECIMENOrdering Facility: [facility] Address:[address] [place], [place] [address]Performed By: #### 22474-3 ####[facility] LABCLIA [id number] [place] [address] [place] AMERICAComprehensive metabolic 2000 panelon 71-82-8150Mfkuoth [Mass/Vol]3.8 g/dLLow3.9-4.9CKindred Hospital Lima Comment on above:Order Comment: Specimen Type: BLOOD SPECIMENOrdering Facility: [facility] Address:[address] [place] [address] Performed By: #### 61225-7, 39614-1, [id number], 71369-5 ####[facility] LABCLIA [id number] [place] [address] [place] [address] [facility] BO[facility] HOSPITALALP [Catalytic activity/Vol]108 U/QDzdsep43-106YltkzjcriOhioHealth O'Bleness Hospital on above:Order Comment: Specimen Type: BLOOD SPECIMENOrdering Facility: [facility] Address:[address] [place], [place] [address]Performed By: #### 54862-6, 08825-8, [id number], 09412-0 ####[facility] LABCLIA [id number] [address] [place] [address] [place] AMERICAALT [Catalytic activity/Vol]40 U/RZvaajj34-01JnaxbcwgoOhioHealth O'Bleness Hospital on above:Order Comment: Specimen Type: BLOOD SPECIMENOrdering Facility: [facility] Address:[address] [place], [place] [address]Performed By: #### 44648-2, 56994-7, [id number], 65793-2 ####[facility] LABCLIA [id number] [place] [address] [place] AMERICAAnion gap [Moles/Vol]15 mmol/L Normal8-15[facility] on above:Order Comment: Specimen Type: BLOOD SPECIMENOrdering Facility: [facility] Address:[address] [place], [place] [address]Performed By: #### 83092-7, 93428-3, [id number], 57043-8 ####[facility] LABCLIA [id number] [place] [address] [place] AMERICAAST [Catalytic activity/Vol]46 U/YBnxm79-01SsuyrosnzOhioHealth O'Bleness Hospital on above:Order Comment: Specimen Type: BLOOD SPECIMENOrdering Facility: [facility] Address:[address] [place], [place] [address]Performed By: #### 00307- 9, 40017-1, [id number], 26924-6 ####[facility] LABCLIA [id number] [place] [id number] [place] Bilirubin [Mass/Vol]0.7 mg/dLNormal0.2-1.3CCherrington [facility] on above:Order Comment: Specimen Type: BLOOD SPECIMENOrdering Facility: [facility] Address:[address] [place], [place] [address]Performed By: #### 23487-2, 46018-1, [id number], 59273-1 ####[facility] LABCLIA [id number] [place] [id number] [place] Calcium [Mass/Vol]8.8 mg/dLNormal8.5-10.2CCherrington Hospital on above:Order Comment: Specimen Type: BLOOD SPECIMENOrdering Facility: [facility] Address:[address] [place], [place] [address]Performed By: #### 48783-7, 38343-8, [id number], 82280-2 ####[facility] LABCLIA [id number] [place] [address] [place] Chloride [Moles/Vol]103 mmol/DWgjotb83-576FxiewazepOhioHealth O'Bleness Hospital on above:Order Comment: Specimen Type: BLOOD SPECIMENOrdering Facility: [facility] Address:[address] [place], [place] [address]Performed By: #### 12053-6, 79158-4, [id number], 80563-6 ####[facility] LABCLIA [id number] [place] [address] [place] CO2 [Moles/Vol]23 mmol/UVdkdac81-45JljycdvygOhioHealth O'Bleness Hospital on above: Order Comment: Specimen Type: BLOOD SPECIMENOrdering Facility: [facility] Address:[address] [place], [place] [address]Performed By: #### 25453- 9, 87645-0, XQK3215, 56413-1 ####[facility] LABCLIA [id number] [place] [address] [place] Creatinine [Mass/Vol]1.12 mg/dLNormal0.73-1.22[facility] on above:Order Comment: Specimen Type: BLOOD SPECIMENOrdering Facility: [facility] Address:[address] [place] [address] Performed By: #### 76299-3, 33914-4, LIN7239, 09665-2 ####[facility] LABCLIA [id number] [place] [id number] [place] AMERICACreatinine and Glomerular filtration rate.predicted panel (S/P/Bld)69 mL/min/1.73m???Normal>=60[facility] on above: Order Comment: Specimen Type: BLOOD SPECIMENOrdering Facility: [facility] Address:[address] [id number] Comment: Estimated Glomerular Filtration Rate (eGFR) is [...] not accurately reflect actual GFR.Performed By: #### 71102-2, 20492-2, EBY0057, 67988-5 ####[facility] LABCLIA [id number] [address] [address] [place] AMERICAGlucose [Mass/Vol]115 mg/xHUbtn07-03PrlmompvhOhioHealth O'Bleness Hospital on above:Order Comment: Specimen Type: BLOOD SPECIMENOrdering Facility: [facility] Address:[address] [place], [place] [address]Result Comment: The [place] Diabetes Association (ADA) provides guidance for cutoff [...] Standards of Medical Care in Diabetes 2016, [place] Diabetes Association. Diabetes Care. 2016.39(Suppl 1). Performed By: #### 79400-7, 32413-2, [id number], 99131-8 ####[facility] LABCLIA [id number] [address] [address] [place] AMERICAPotassium [Moles/Vol]3.3 mmol/LLow3.7-5.1CCherrington Hospital on above:Order Comment: Specimen Type: BLOOD SPECIMENOrdering Facility: [facility] Address:[address] [place], [place] [address]Performed By: #### 13030-0, 13244-1, QLZ2026, 67940-1 ####[facility] LABCLIA [id number] [place] [address] [place] AMERICAProtein [Mass/Vol]6.7 g/dLNormal6.3-8.0[facility] on above:Order Comment: Specimen Type: BLOOD SPECIMENOrdering Facility: [facility] Address:[address] [place], [place] [address]Performed By: #### 38351-2, 27591-3, XKP3525, 37698-6 ####[facility] LABCLIA [id number] [address] STATES OF AMERICASodium [Moles/Vol]141 mmol/CGpvgww565-265QhqrhpeofOhioHealth O'Bleness Hospital on above:Order Comment: Specimen Type: BLOOD SPECIMENOrdering Facility: [facility] Address:[address] [place], [place] [address]Performed By: #### 82602-5, 40042-6, LSH8953, 85296-6 ####[facility] LABCLIA [id number] [place] [address] [place] AMERICAUrea nitrogen [Mass/Vol]37 mg/dL High9-24[facility] on above:Order Comment: Specimen Type: BLOOD SPECIMENOrdering Facility: [facility] Address:[address] [place], [place] [address]Performed By: #### 93045-4, 28067-2, PPR8607, 40629-2 ####[facility] LABCLIA [id number] [place] [address] [place] OF AMERICAECG COMPLETEon 18-85-9250QBI COMPLETENormalCKindred Hospital LimaED NOTEon 39-41-8421QT NOTEHNO ID: [id number] Author: EDWIN MANSFIELD RN Service: ? Author Type: Registered Nurse Type: ED Notes Filed: 11/12/2024 19:04 Note Text: Pt. D/c as ordered Pt .verbalized understanding of all d/c instructions. No further needs noted at this time.[facility] NOTE NormalSelect Medical [facility] [place] PROGRESS NOTE (PROVIDER)on 78-50-0491XN PROGRESS NOTE (PROVIDER)[facility] PROV NOTEon 15-89-4438HU PROV NOTENormalCKettering Health Triage Noteon 96-14-6556MB Triage NoteNoSelect Medical [facility] Rehabilitation Hospital - DublinHIGH SENSITIVITY TROPONIN T (INITIAL)on 31-60-8839Plshvoio T.cardiac High sensitivity method [Mass/Vol]18 ng/LHigh<12[facility] on above:Order Comment: Specimen Type: BLOOD SPECIMENOrdering Facility: [facility] Address:[address] [place], [place] [address]Performed By: #### 58208- 9, 99999-5, [id number], 30788-8 ####[facility] LABCLIA [id number] SENSITIVITY TROPONIN T (SECOND)on 03-61-8910Lvdzkrle T.cardiac High sensitivity method [Mass/Vol]17 ng/LHigh<12[facility] on above:Order Comment: Specimen Type: BLOOD SPECIMENOrdering Facility: [facility] Address:[address] [place], [place] [address]Performed By: #### [id number] ####[facility] LABCLIA [id number] [address] SENSITIVITY TROPONIN T (THIRD) 3 HRS AFTER INITIALon 36-36-1632Exibfdiw T.cardiac High sensitivity method [Mass/Vol]16 ng/LHigh<12[facility] on above:Order Comment: Specimen Type: BLOOD SPECIMENOrdering Facility: [facility] Address:[address] [place], [place] [address]Performed By: #### [id number] ####[facility] LABCLIA [id number] [place] [address] [place] AMERICAMagnesium SerPl-Roxborough Memorial Hospitalon 82-44-5451Helrcgfrn [Mass/Vol]2.1 mg/dLNormal1.7-2.3CKindred Hospital Lima Comment on above:Order Comment: Specimen Type: BLOOD SPECIMENOrdering Facility: [facility] Address:[address] [place] [address] Performed By: #### 71106-6, 24077-8, YDP0707, 11872-5 ####[facility] LABCLIA [id number] [place] [address] [place] AMERICANT-proBNP SerPl-mCncon 77-25-7749Okibmteuwjj peptide.B prohormone N-Terminal [Mass/Vol]465 pg/mLHigh<125[facility] Comment on above:Order Comment: Specimen Type: BLOOD SPECIMENOrdering Facility: [facility] Address:[address] [place] [address] Performed By: #### 60931-5, 27057-5, BRT2106, 57340-4 ####[facility] LABCLIA [id number] [place] [address] [place] AMERICAUS DVT LOWER BILon 72-43-7182FT DVT LOWER BILNormalCKindred Hospital LimaXR CHEST 2V FRONTAL/LATon 11-70-1140AA CHEST 2V FRONTAL/LAT NormalMount Carmel Health SystemBasic metabolic 2000 panelon 26-68-1818Nqpvw gap [Moles/Vol]13 mmol/LNormal8-15[facility] SystemComment on above:Order Comment: Specimen Type: BLOOD SPECIMENOrdering Facility: [facility] Address:[address] [place], [place] [address]Performed By: #### 61574- 9, 46830-5 ####[facility] LABCLIA [id number] [place], [place] [address]Pngfgld [Mass/Vol]9.0 mg/dLNormal8.5-10.2CCherrington Hospital on above:Order Comment: Specimen Type: BLOOD SPECIMENOrdering Facility: [facility] Address:[address] [place], [place] [address]Performed By: #### 63893-7, 49516-6 ####[facility] LABCLIA [id number] [place], [place] [address]Dsmckttf [Moles/Vol]100 mmol/UIokcsi12-947DeorcyswoOhioHealth O'Bleness Hospital on above: Order Comment: Specimen Type: BLOOD SPECIMENOrdering Facility: [facility] Address:[address] [place], [place] [address]Performed By: #### 71228- 9, 95514-9 ####[facility] LABCLIA [id number] [place], [place] [address]IJ7 [Moles/Vol]25 mmol/HDsctkr16-38RchbpcyihOhioHealth O'Bleness Hospital on above:Order Comment: Specimen Type: BLOOD SPECIMENOrdering Facility: [facility] Address:[address] [place], [place] [address]Performed By: #### 21295-2, 05355-1 ####[facility] LABCLIA [id number] [place], [place] [address]Zafaumclik [Mass/Vol] 1.08 mg/dLNormal0.73-1.22[facility] on above:Order Comment: Specimen Type: BLOOD SPECIMENOrdering Facility: [facility] Address:[address] [place], [place] [address]Performed By: #### 67584- 9, 90190-9 ####[facility] LABCLIA [id number] [place], [place] [address]Fheclaxwrq and Glomerular filtration rate.predicted panel (S/P/Bld)72 mL/min/1.73m???Normal>=60[facility] on above:Order Comment: Specimen Type: BLOOD SPECIMENOrdering Facility: [facility] Address:[address] [place] [address]Pafrhw Comment: Estimated Glomerular Filtration Rate (eGFR) is [...] not accurately reflect actual GFR.Performed By: #### 59958-9, 27852-9 ####[facility] LABIA [id number] [place], [place] [address]Hgtnpul [Mass/Vol]140 mg/wEYxat82-24AyqvlkfnpOhioHealth O'Bleness Hospital on above:Order Comment: Specimen Type: BLOOD SPECIMENOrdering Facility: [facility] Address:[address] [place] [address]Hfpaxl Comment: The [place] Diabetes Association (ADA) provides guidance for cutoff [...] Standards of Medical Care in Diabetes 2016, [place] Diabetes Association. Diabetes Care. 2016.39(Suppl 1).Performed By: #### 04888- 9, 06455-9 ####[facility] LABCLIA [id number] [place], [place] [address]Xvmqybddf [Moles/Vol]4.0 mmol/LNormal3.7-5.1 [facility] on above:Order Comment: Specimen Type: BLOOD SPECIMENOrdering Facility: [facility] Address:[address] [place], [place] [address]Performed By: #### 10315-6, 69458-1 ####[facility] LABCLIA [id number] [place], [place] [address]Wekppx [Moles/Vol]138 mmol/VCmcwnv067-238MkqroficwOhioHealth O'Bleness Hospital on above: Order Comment: Specimen Type: BLOOD SPECIMENOrdering Facility: [facility] Address:[address] [place], [place] [address]Performed By: #### 06497- 9, 10127-9 ####[facility] LABCLIA [id number] [place], [place] [address]Dfmu nitrogen [Mass/Vol]39 mg/dLHigh9-24[facility] on above:Order Comment: Specimen Type: BLOOD SPECIMENOrdering Facility: [facility] Address:[address] [place], [place] [address]Performed By: #### 01104-5, 59078-2 ####[facility] LABCLIA [id number] [place], [place] [address]CMD panel Auto (Bld)on 93-67-3072Nkotvogseev distribution width (RBC) [Ratio]16.2 % High11.5-15.0[facility] Health SystemComhenry ford hospital on above:Order Comment: Specimen Type: BLOOD SPECIMENOrdering Facility: [facility] Address:[address] [place], [place] [address]Performed By: #### 78914-0 ####[facility] LABCLIA [id number] [place] [address] Hematocrit (Bld) [Volume fraction]38.3 %Low39.0-51.0[facility] Comment on above:Order Comment: Specimen Type: BLOOD SPECIMENOrdering Facility: [facility] Address:[address] [place] [address] Performed By: #### 10867-5 ####[facility] LABCLIA [id number] [place], [place] [address]Xgktcdnivh (Bld) [Mass/Vol]12.4 g/dLLow13.0-17.0[facility] on above:Order Comment: Specimen Type: BLOOD SPECIMENOrdering Facility: [facility] Address:[address] [place], [place] [address]Performed By: #### 06270-1 ####[facility] LABCLIA [id number] [place], [place] [address]DLI (RBC) [Entitic mass]31.9 nrNvucjh59.0-34.0[facility] on above:Order Comment: Specimen Type: BLOOD SPECIMENOrdering Facility: [facility] Address:[address] [place], [place] [address]Performed By: #### 79652-2 ####[facility] LABIA [id number] [place], [place] [address]EFVI (RBC) [Mass/Vol]32.4 g/pNRdhops27.5-36.0[facility] on above: Order Comment: Specimen Type: BLOOD SPECIMENOrdering Facility: [facility] Address:[address] [place], [place] [address]Performed By: #### 62407- 2 ####[facility] LABIA [id number] [place], [place] [address]PWP (RBC) [Entitic vol]98.5 zLRtsnnc11.0-100.0[facility] on above:Order Comment: Specimen Type: BLOOD SPECIMENOrdering Facility: [facility] Address:[address] [place], [place] [address]Performed By: #### 75833-7 ####[facility] LABIA [id number] [place], [place] [address]Bsfhdvjhf RBC (Bld) [#/Vol]10*3/uLNormal<0.01[facility] on above:Order Comment: Specimen Type: BLOOD SPECIMENOrdering Facility: [facility] Address:[address] [place], [place] [address]Performed By: #### 66658- 2 ####[facility] LABCLIA [id number] [place], [place] [address]Wszwnolo mean volume (Bld) [Entitic vol]9.8 fLNormal 9.0-12.7CCherrington Hospital on above:Order Comment: Specimen Type: BLOOD SPECIMENOrdering Facility: [facility] Address:[address] [place], [place] [address]Performed By: #### 85680-9 ####[facility] LABIA [id number] [place], [place] [address]Pjvybjouu (Bld) [#/Vol]150 10*3/xHTlenge875-993VtaqaqsfnOhioHealth O'Bleness Hospital on above: Order Comment: Specimen Type: BLOOD SPECIMENOrdering Facility: [facility] Address:[address] [place], [place] [address]Performed By: #### 69839- 2 ####[facility] LABCLIA [id number] [place], [place] [address]SAQ (Bld) [#/Vol]3.89 10*6/uLLow4.20-6.00[facility] on above:Order Comment: Specimen Type: BLOOD SPECIMENOrdering Facility: [facility] Address:[address] [place], [place] [address]Performed By: #### 48006-0 ####[facility] LABIA [id number] [place], [place] [address]GWT (Bld) [#/Vol]8.65 10*3/uL Normal3.70-11.00[facility] on above:Order Comment: Specimen Type: BLOOD SPECIMENOrdering Facility: [facility] Address:[address] [place], [place] [address]Performed By: #### 30467-3 ####[facility] LABCLIA [id number] [place], [place] [address]Xfvokodan SerPl-mCncon 21-43-2137Dkdssgizt [Mass/Vol]2.4 mg/dLHigh1.7-2.3CKindred Hospital LimaComment on above:Order Comment: Specimen Type: BLOOD SPECIMENOrdering Facility: [facility] Address:[facility] [place], [place] [address]Lqmanjsnu By: #### 19829-2, 86933-9 ####[facility]AREL[facility] LABCLIA [id number] [place], [place] [address]UUAEoe 13-22-0858LUMZRtywegvmv (AVXRCT) SAV RAYMUNDO ([id number]) 1950 M Date Time Provider Department 11/04/24 [...] action needed at this time. 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 0545 - CT ENTEROGRAPHY W IVCON / [...] WITH RIGHT PLEURAL CATHETER. SMALL HIATAL HERNIA. 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: ALONSO Transcribe Date/Time: Nov 04 2024 3:57P Dictated by : IZABELA LAMBERT MD This examination was interpreted and the report reviewed and electronically signed by: IZABELA LAMBERT MD on Nov 04 2024 5:14PM EST [id number] Health Lakeland Hospitals St. Joseph HospitalNURSGAEBLER CHILDREN'[facility] PROGon 99-04-4202JSMWWUL PROG HNO ID: [id number] Author: COLBY VAZQUEZ RN Service: Radiology Author [...] Raymundo DATE: November 04, 2024 TIME: 1:45 [facility] ID: [id number] Author: COLBY VAZQUEZ RN Service: Radiology Author [...] REFERRAL (RECOMMENDATION): None Electronically Signed By: Colby VazquezLouisville Medical Center FECAL QUALon 48-31-9139JNF, FECAL - NEUTRALNormalNormalNormalCCherrington Hospital on above:Order Comment: Specimen Type: STOOL SPECIMENOrdering Facility: [facility] Address:[address] [place], [place] [address]Performed By: #### FFATQL ####[facility] [id number] [place], [place] [address]PAC, FECAL - SPLITNormalNormalNormalCCherrington Hospital on above:Order Comment: Specimen Type: STOOL SPECIMENOrdering Facility: [facility] Address:[address], [place], [place] [address]Mrrofb Comment: INTERPRETIVE INFORMATION: Fecal Fat QualitativeNeutral fats include the monoglycerides, diglycerides, andtriglycerides while split fats are the free fatty acidsthat are liberated fromthem. Impaired synthesis orsecretion of pancreatic enzymes or bile may cause anincrease in neutral fats while an increase in split fatssuggests impaired absorption of nutrients.Performed By: [employer] [place] [address]Wciqqncghl Director: Anne-Marie Correa MD, PhDCLIANumber: [id number] By: #### FFATQL ####[facility] [id number] [place] [address] Amylase SerPl-cCncon 39-40-9100Iwhacrd [Catalytic activity/Vol]70 U/LNormal 30-104Avon HospitalComment on above:Order Comment: Specimen Type: BLOOD SPECIMEN [facility]ing Facility: [facility] Address: [address] [place], [place] [address]Performed By: #### [id number], [id number] #### [facility] CLIA [id number] [address] [place] [address] [place] AMERICACNPNon 03-62-7022MGJMRemqvd [facility] SystemIGG SUBCLASS 1,2,3,4on 47-42-8230OmG subclass 1 (S) [Mass/Vol]576.5 mg/vXYbektu032.4-928.6Avon HospitalComment on above:Order Comment: Specimen Type: BLOOD SPECIMEN [facility]ing [facility]: [facility] Address: [address] [place], [place] [address]Performed By: #### [id number] #### [facility] CLIA [id number] [address] [place] [address] [place] AMERICAIgG subclass 2 (S) [Mass/Vol]251.2 mg/sFPctdnb571.8-700.3Avon HospitalComment on above:Order Comment: Specimen Type: BLOOD SPECIMEN [facility]ing Facility: [facility] Address: [address] [place], [place] [address]Performed By: #### [id number] #### [facility] CLIA [id number] [address] [place] [address] [place] AMERICAIgG subclass 3 (S) [Mass/Vol]50.4 mg/hKAotgjl98.8-176.1Avon HospitalComment on above:Order Comment: Specimen Type: BLOOD SPECIMEN [facility]ing [facility]: [facility] Address: [address] [place], [place] [address]Performed By: #### [id number] #### [facility] CLIA [id number] [address] [place] [address] [place] AMERICAIgG subclass 4 (S) [Mass/Vol]64.4 mg/dLNormal3.9-86.4Avon HospitalComment on above:Order Comment: Specimen Type: BLOOD SPECIMEN Ordering Facility: [facility] Address: [address] [place], [place] [address]Performed By: #### [id number] #### [facility] CLIA [id number] [address] [place] [address] [place] AMERICAIgG SerPl-mCncon 10-23-2024 IgG [Mass/Vol]1100 mg/uPXpmzae236-3963Qwgy HospitalComment on above:Order Comment: Specimen Type: BLOOD SPECIMEN [facility]ing [facility]: [facility] Address: [address] [place], [place] [address]Performed By: #### 2465-3 #### [facility] CLIA [id number] [address] [place], [place] [address] [place] AMERICALipase SerPl-cCncon 30-54-5643Ajtlpm [Catalytic activity/Vol]55 U/UKokmzn22-07Hbik HospitalComment on above:Order Comment: Specimen Type: BLOOD SPECIMEN [facility]ing [facility]: [facility] Address: [address] [place], [place] [address]Performed By: #### [id number], [id number] #### [facility] CLIA [id number]US ABD RIGHT UPPER QUADRANT on 99-48-0210AY ABD RIGHT UPPER QUADRANT* * *Final Report* * * DATE OF EXAM: Oct 23 2024 2:18PM [facility] 1032 - [place] ABD RIGHT UPPER [...] 2. Small volume abdominal ascites. No splenomegaly. 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 [employer] Transcribe Date/Time: Oct 26 2024 2:30P Dictated by : SANDRA BELTRE MD This examination was interpreted and the report reviewed and electronically signed by: SANDRA BELTRE MD on Oct 26 2024 2:34PM EST [id number] Medical Center Alpena ABD SPLEEN -NBon 96-86-2836VX ABD SPLEEN -NB* * *Final Report* * [...] 2. Small volume abdominal ascites. No splenomegaly. 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 [employer] Transcribe Date/Time: Oct 26 2024 2:30P Dictated by : SANDRA BELTRE MD This examination was interpreted and the report reviewed and electronically signed by: SANDRA BELTRE MD on Oct 26 2024 2:34PM EST [id number] [facility] limitedon 63-16-9151Ufwwgecfv ClinicALKALINE PHOSPHATASE ISOENZYMES (P)on 79-44-3662DMF PHOS BONE %18.1 % Ugkdop80.7-68.3CCherrington Hospital on above:Order Comment: Specimen Type: BLOOD SPECIMENOrdering Facility: [facility] Address:[address] [place], [place] [address]Performed By: #### ALKISOP ####[facility] LABIA [id number] [address] STATES OF AMERICAALK PHOS LIVER %81.9 %Normal 26.0-86.2CCherrington Hospital on above:Order Comment: Specimen Type: BLOOD SPECIMENOrdering Facility: [facility] Address:[address] [place], [place] [address]Performed By: #### ALKISOP ####[facility] LABIA [id number] [place] [address] [place] AMERICABONE JMOGHIXQ23.6 U/TFwqhac45.9-52.6CCherrington Hospital on above:Order Comment: Specimen Type: BLOOD SPECIMENOrdering Facility: [facility] Address:[address] [place], [place] [address]Performed By: #### ALKISOP ####[facility] LABCLIA [id number] [place] [address] [place] INTESTINE FRACTION0.0 U/LNormal0.0-16.3CCherrington Hospital on above:Order Comment: Specimen Type: BLOOD SPECIMENOrdering Facility: [facility] Address:[address] [place], [place] [address]Performed By: #### ALKISOP ####[facility] LABCLIA [id number] [place] [address] [place] AMERICALIVER [id number] U/LHigh16.0-69.3CCher[facility] on above:Order Comment: Specimen Type: BLOOD SPECIMENOrdering Facility: [facility] Address:[address] [place], [place] [address]Performed By: #### ALKISOP ####[facility] LABCLIA [id number] [address] STATES OF AMERICANeutrophils/100 WBC (Bld)0.0 % Normal0.0-24.2CCherrington Hospital on above:Order Comment: Specimen Type: BLOOD SPECIMENOrdering Facility: [facility] Address:[address] [place], [place] [address]Performed By: #### ALKISOP ####[facility] [facility] LABCLIA [id number] [place] [address] [place] [address] [address] [facility]DMAN HOSPITALALP SerPl-cCncon [id number] [Catalytic activity/Vol] 125 U/ZCglj17-578PuxjhkcwiOhioHealth O'Bleness Hospital on above:Order Comment: Specimen Type: BLOOD SPECIMENOrdering Facility: [facility] Address:[address] [place], [place] [address]Performed By: #### 6768-6, 41221-4, 55806-3 ####[facility] LABCLIA [id number] OF AMERICACBC W Auto Differential panel (Bld)on 56-82-7825Nctkpcgqq (Bld) [#/Vol]NINFCleveland ClinicBasophils/100 WBC (Bld)0.1 %[facility]-FairhillDifferential cell count method Nom (Bld)AutoCleveland ClinicEosinophils (Bld) [#/Vol]NINFCleveland ClinicEosinophils/100 WBC (Bld)0 % [facility]-FairhillErythrocyte distribution width (RBC) [Ratio]15.5 %High11.5 - 15.0 %[facility]-FairhillHematocrit (Bld) [Volume fraction]40.7 %39.0 - 51.0 % [facility]-FairhillHemoglobin (Bld) [Mass/Vol]12.9 g/dLLow13.0 - 17.0 g/dLSelect Medical Specialty Hospital - Cleveland-FairhillImmature granulocytes (Bld) [#/Vol]0.09 10*3/uLNINFSelect Medical Specialty Hospital - [place] Immature granulocytes/100 WBC (Bld)0.8 %[facility] [place]-FairhillInterpretation and review of laboratory resultsAbnormalCleveland Ely-Bloomenson Community HospitalLymphocytes (Bld) [#/Vol]0.8 10*3/uLLowSelect Medical Specialty Hospital - Cleveland-FairhillLymphocytes/100 WBC (Bld)7.2 %[facility] HospitalH (RBC) [Entitic mass]31.2 pg26.0 - 34.0 pgClevelJackson Medical CenterHC (RBC) [Mass/Vol] 31.7 g/dL30.5 - 36.0 g/dLProMedica Toledo HospitalV (RBC) [Entitic vol]98.5 fL80.0 - 100.0 fLClevelBlanchard Valley Health SystemMonocytes (Bld) [#/Vol]0.81 10*3/uLNINFSelect Medical Specialty [facility] - [place] Monocytes/100 WBC (Bld)7.3 %[facility] [place]-FairhillNeutrophils (Bld) [#/Vol]9.45 10*3/uLHighSelect Medical Specialty Hospital - Cleveland-FairhillNeutrophils/100 WBC (Bld)84.6 %[facility] [place] Nucleated RBC (Bld) [#/Vol]NINFCleveland ClinicNucleated RBC/100 WBC (Bld) [Ratio]0 %/100 WBCSelect Medical Specialty Hospital - Cleveland-FairhillPlatelet mean volume (Bld) [Entitic vol]10.5 fL9.0 - 12.7 fLCMiami Valley HospitalPlatelets (Bld) [#/Vol]202 10*3/uLPatillas ClinicRBC (Bld) [#/Vol]4.13 10*6/uLLow4.20 - 6.00 m/[facility]. Charles HospitalWBC (Bld) [#/Vol]11.16 10*3/uLHighKettering Health Troy ClinicBasophils (Bld) [#/Vol] 10*3/uLNormal<0.11CCherrington Hospital on above:Order Comment: Specimen Type: BLOOD SPECIMENOrdering Facility: [facility] Address:[address] [place], [place] [address]Performed By: #### 88277-7, 453-7 ####[facility] LABCLIA [id number] [place] [address] [place] AMERICABasophils/100 WBC (Bld)0.1 % NormalOhioHealth O'Bleness Hospital on above:Order Comment: Specimen Type: BLOOD SPECIMENOrdering Facility: [facility] Address:[address] [place], [place] [address]Performed By: #### 88708-6, 4536-7 ####[facility] LABCLIA [id number] [place] [address] [place] AMERICADifferential cell count method Nom (Bld)AutoNormal [facility] on above:Order Comment: Specimen Type: BLOOD SPECIMENOrdering Facility: [facility] Address:[address] [place], [place] [address]Performed By: #### 61333-6, 4536-7 ####[facility] LABIA [id number] [place] [id number] [place] AMERICAEosinophils (Bld) [#/Vol]10*3/uLNormal<0.46[facility] on above:Order Comment: Specimen Type: BLOOD SPECIMENOrdering Facility: [facility] Address:[address] [place], [place] [address]Performed By: #### 47158-6, 4536-7 ####[facility] LABCLIA [id number] [place] [address] [place] [address] [facility] [address] [facility] HOSPITALEosinophils/100 WBC (Bld)0.0 %NormalOhioHealth O'Bleness Hospital on above:Order Comment: Specimen Type: BLOOD SPECIMENOrdering Facility: [facility] Address:[address] [place], [place] [address]Performed By: #### 46807-7, 7 ####[facility] LABIA [id number] [place] [address] [place] AMERICAErythrocyte distribution width (RBC) [Ratio]15.5 %High11.5-15.0[facility] Comment on above:Order Comment: Specimen Type: BLOOD SPECIMENOrdering Facility: [facility] Address:[address] [place] [address] Performed By: #### 69957-4, 7 ####[facility] LABIA [id number] [place] [address] [place] Hematocrit (Bld) [Volume fraction]40.7 %Vcucbn02.0-51.0[facility] on above:Order Comment: Specimen Type: BLOOD SPECIMENOrdering Facility: [facility] Address:[address] [place], [place] [address]Performed By: #### 73294-1, 7 ####[facility] LABIA [id number] [place] [id number] [place] Hemoglobin (Bld) [Mass/Vol]12.9 g/dLLow13.0-17.0[facility] Comment on above:Order Comment: Specimen Type: BLOOD SPECIMENOrdering Facility: [facility] Address:[address] [place] [address] Performed By: #### 80896-4, 4536-7 ####[facility] LABCLIA [id number] [place] [address] [place] Immature granulocytes (Bld) [#/Vol]0.09 10*3/uLNormal<0.10[facility] Health SystemComment on above:Order Comment: Specimen Type: BLOOD SPECIMENOrdering Facility: [facility] Address:[address] [place], [place] [address]Performed By: #### 62371-0, 7 ####[facility] LABIA [id number] [place] [address] [place] AMERICAImmature granulocytes/100 WBC (Bld)0.8 %NormalMount Carmel Health System Comment on above:Order Comment: Specimen Type: BLOOD SPECIMENOrdering Facility: [facility] Address:[address] [place] [address] Performed By: #### 38655-1, 7 ####[facility] LABIA [id number] [place] [address] [place] Lymphocytes (Bld) [#/Vol]0.80 10*3/uLLow1.00-4.00[facility] Comment on above:Order Comment: Specimen Type: BLOOD SPECIMENOrdering Facility: [facility] Address:[address] [place] [address] Performed By: #### 74292-1, 7 ####[facility] LABIA [id number] [place] [address] [place] Lymphocytes/100 WBC (Bld)7.2 %NormalMount Carmel Health SystemComment on above: Order Comment: Specimen Type: BLOOD SPECIMENOrdering Facility: [facility] Address:[address] [place], [place] [address]Performed By: #### 57392- 8, 4536-7 ####[facility] LABIA [id number] [facility] [place] [address] [place] AMERICAMC (RBC) [Entitic mass] 31.2 irHszfra89.0-34.0[facility] on above:Order Comment: Specimen Type: BLOOD SPECIMENOrdering Facility: [facility] Address:[address] [place], [place] [address]Performed By: #### 80626-0, 4536-7 ####[facility] LABIA [id number] [address] OF [facility]DMAN HOSPITALMCHC (RBC) [Mass/Vol]31.7 g/dL Nmerom61.5-36.0[facility] on above:Order Comment: Specimen Type: BLOOD SPECIMENOrdering Facility: [facility] Address:[address] [place], [place] [address]Performed By: #### 31020-4, 4536-7 ####[facility] LABIA [id number] [address]ETMCV (RBC) [Entitic vol]98.5 fL Tntnic85.0-100.0[facility] on above:Order Comment: Specimen Type: BLOOD SPECIMENOrdering Facility: [facility] Address:[address] [place], [place] [address]Performed By: #### 23004-8, 7 ####[facility] LABIA [id number] [place] [address] [place] AMERICAMonocytes (Bld) [#/Vol]0.81 10*3/uLNormal<0.87[facility] on above:Order Comment: Specimen Type: BLOOD SPECIMENOrdering Facility: [facility] Address:[address] [place], [place] [address]Performed By: #### 25852-5, 7 ####[facility] LABIA [id number] [address] STATES OF AMERICAMonocytes/100 WBC (Bld)7.3 % NormalOhioHealth O'Bleness Hospital on above:Order Comment: Specimen Type: BLOOD SPECIMENOrdering Facility: [facility] Address:[address] [place], [place] [address]Performed By: #### 26579-9, 4536-7 ####[facility] LABIA [id number] [place] [address] [place] AMERICANeutrophils (Bld) [#/Vol]9.45 10*3/uLHigh1.45-7.50 [facility] on above:Order Comment: Specimen Type: BLOOD SPECIMENOrdering Facility: [facility] Address:[address] [place], [place] [address]Performed By: #### 44200-5, 7 ####[facility] LABIA [id number] [place] [address] [place] AMERICANeutrophils/100 WBC (Bld)84.6 %NormalMount Carmel Health System Comment on above:Order Comment: Specimen Type: BLOOD SPECIMENOrdering Facility: [facility] Address:[address] [place] [address] Performed By: #### 02385-5, 7 ####[facility] LABIA [id number] [place] [address] [place] Nucleated RBC (Bld) [#/Vol]10*3/uLNormal<0.01[facility] on above:Order Comment: Specimen Type: BLOOD SPECIMENOrdering Facility: [facility] Address:[address] [place] [address] Performed By: #### 07732-0, 7 ####[facility] LABIA [id number] [place] [id number] [place] Nucleated RBC/100 WBC (Bld) [Ratio]0.0 /100 WBCNormalCKindred Hospital Lima Comment on above:Order Comment: Specimen Type: BLOOD SPECIMENOrdering Facility: [facility] Address:[address] [place] [address] Performed By: #### 89562-6, 7-7 ####[facility] LABCLIA [id number] [place] [address] [place] Platelet mean volume (Bld) [Entitic vol]10.5 fLNormal9.0-12.7CCherrington Hospital on above:Order Comment: Specimen Type: BLOOD SPECIMENOrdering Facility: [facility] Address:[address] [place], [place] [address]Performed By: #### 75507-9, 453-7 ####[facility] LABCLIA [id number] [place] [address] [place] Platelets (Bld) [#/Vol]202 10*3/pZFucbns853-195JqkqhvyiaOhioHealth O'Bleness Hospital on above:Order Comment: Specimen Type: BLOOD SPECIMENOrdering Facility: [facility] Address:[address] [place] [address] Performed By: #### 40667-5, 4536-7 ####[facility] LABCLIA [id number] [place] [address] [place] RBC (Bld) [#/Vol]4.13 10*6/uLLow4.20-6.00[facility] on above:Order Comment: Specimen Type: BLOOD SPECIMENOrdering Facility: [facility] Address:[address] [place], [place] [address]Performed By: #### 24255-9, 4536-7 ####[facility] LABIA [id number] [place] [address] [place] AMERICAWBC (Bld) [#/Vol]11.16 10*3/uLHigh3.70-11.00[facility] on above:Order Comment: Specimen Type: BLOOD SPECIMENOrdering Facility: [facility] Address:[address] [place], [place] [address]Performed By: #### 59672-3, 4536-7 ####[facility] LABCLIA [id number] [place] [address] [place] AMERICACNOVon 68-06-3153NMEEYoajfx [facility] [place] ClevelandCNPTOUTREACHon 79-18-5213NLLLYPNVSWOGDgrgspLhmcihfbn Clinic Clejoint township district memorial hospitalCRP SerPl HS-mCncon 61-27-2826BDB High sensitivity method [Mass/Vol]13.2 mg/LHigh<3.1C[place] [facility] on above:Order Comment: Specimen Type: BLOOD SPECIMENOrdering Facility: [facility] Address:[address] [place], [place] [address]Result Comment: hsCRP < 1.0 mg/L, relative risk is lowhsCRP 1.0-3.0 mg/L, relative risk is averagehsCRP > 3.0 mg/L, relative risk is highReference:Roman TA, Wilma GA, Octavio RW, et al. Markers of Inflammation and Cardiovascular Disease. Application to Clinical and Public Health Practice. A Statement for Healthcare Professionals from the Centers for Disease Control and Prevention and the [place] Heart Association. Circulation 2003;107:499-511.Performed By: #### 6768-6, 54639-8, 87172-7 ####[facility] LABCLIA [id number] [address] [place] AMERICAComprehensive metabolic 2000 panelon 81-04-4042Inldfqi [Mass/Vol]4.2 g/dL3.9 - 4.9 g/dLClejoint township district memorial hospital ClinicALP [Catalytic activity/Vol]125 U/LHigh38 - 113 U/LCleveland ClinicALT [Catalytic activity/Vol]41 U/L10 - 54 U/LCleveland ClinicAnion gap [Moles/Vol]14 mmol/L8 - 15 mmol/LCleveland ClinicAST [Catalytic activity/Vol]53 U/LHigh14 - 40 U/L [facility] ClinicBilirubin [Mass/Vol]0.6 mg/dL0.2 - 1.3 mg/dLSelect Medical Specialty Hospital [facility] [place] Calcium [Mass/Vol]9.7 mg/dL8.5 - 10.2 mg/dLCleveland ClinicChloride [Moles/Vol] 101 mmol/L98 - 107 mmol/LCleveland ClinicCO2 [Moles/Vol]27 mmol/L22 - 30 mmol/L [facility] [place]-FairhillCreatinine [Mass/Vol]1.09 mg/dL0.73 - 1.22 mg/dLSelect Medical Specialty Hospital - [place] GFR/1.73 sq M.predicted among non-blacks MDRD (S/P/Bld) [Vol rate/Area]72 mL/min/{1.73_m2}- PINFClevelBlanchard Valley Health SystemComment on above:Estimated Glomerular Filtration Rate (eGFR) is calculated using the 2020 CKD-EPI creatinine equation. This equation utilizes serum creatinine, sex, and age as parameters. The creatinine assay has traceable calibration to isotope dilution-mass spectrometry. Refer to KDIGO guidelines for clinical interpretation. In patients with unstable renal function, e.g. those with acute kidney injury, the eGFRmay not accurately reflect actual GFR.Glucose [Mass/Vol]116 mg/bBRoqu08 - 99 mg/dL [facility] on above:The [place] Diabetes Association (ADA) provides guidance for cutoff [...] Standards of Medical Care in Diabetes 2016, [place] Diabetes Association. Diabetes Care. 2016.39(Suppl 1). Potassium [Moles/Vol]4.1 mmol/L3.7 - 5.1 mmol/LCleveland ClinicProtein [Mass/Vol]7.6 g/dL6.3 - 8.0 g/dLPatillas ClinicSodium [Moles/Vol]142 mmol/L136 - 144 mmol/LCleveland ClinicUrea nitrogen [Mass/Vol]35 mg/dLHigh9 - 24 mg/dL [facility] ClinicAlbumin [Mass/Vol]4.2 g/dLNormal3.9-4.9[facility] ClevelandComment on above:Order Comment: Specimen Type: BLOOD SPECIMENOrdering Facility: [facility] Address:[address] [place], [place] [address]Performed By: #### 6768-6, 89917-1, 76753-7 ####[facility] LABCLIA [id number] [address] [address] [place] AMERICAALT [Catalytic activity/Vol]41 U/VPzvitd95-02RbzdvsjspOhioHealth O'Bleness Hospital on above:Order Comment: Specimen Type: BLOOD SPECIMENOrdering Facility: [facility] Address:[address] [place], [place] [address]Performed By: #### 6768-6, 98840-1, 39789-2 ####[facility] LABCLIA [id number] [address] [place] AMERICAAnion gap [Moles/Vol]14 mmol/LNormal8-15[facility] on above:Order Comment: Specimen Type: BLOOD SPECIMENOrdering Facility: [facility] Address:[address] [place], [place] [address]Performed By: #### 6768-6, 16035-2, 94839-3 ####[facility] LABCLIA [id number] VILLE [id number] [place] AMERICAAST [Catalytic activity/Vol]53 U/EKljn91-85InqwgndxtOhioHealth O'Bleness Hospital on above:Order Comment: Specimen Type: BLOOD SPECIMENOrdering Facility: [facility] Address:[address] [place], [place] [address]Performed By: #### 6768-6, 17638-7, 34316-7 ####[facility] LABIA [id number] [address] [place] AMERICABilirubin [Mass/Vol]0.6 mg/dLNormal0.2-1.3CCherrington Hospital on above:Order Comment: Specimen Type: BLOOD SPECIMENOrdering Facility: [facility] Address:[address] [place], [place] [address]Performed By: #### 6768-6, 15079-8, 06965-1 ####[facility] LABCLIA [id number] VILLE [id number] [place] AMERICACalcium [Mass/Vol]9.7 mg/dLNormal8.5-10.2ClevelYadkin Valley Community HospitalComment on above:Order Comment: Specimen Type: BLOOD SPECIMENOrdering Facility: [facility] Address:[address] [place], [place] [address]Performed By: #### 6768-6, 23048-0, 29707-1 ####[facility] LABCLIA [id number] VILLE [id number] [place] AMERICAChloride [Moles/Vol]101 mmol/XHfeiai87-177OmleynivwMount Carmel Health SystemComment on above:Order Comment: Specimen Type: BLOOD SPECIMENOrdering Facility: [facility] Address:[address] [place], [place] [address]Performed By: #### 6768-6, 13598-5, 54596-1 ####[facility] LABIA [id number] VILLE [id number] [place] AMERICACO2 [Moles/Vol]27 mmol/SCrcemg59-59SsdbbsojqMount Carmel Health System Comment on above:Order Comment: Specimen Type: BLOOD SPECIMENOrdering Facility: [facility] Address:[address] [place] [address] Performed By: #### 6768-6, 36620-4, 80928-9 ####[facility] LABIA [id number] [address] [place] AMERICACreatinine [Mass/Vol]1.09 mg/dLNormal0.73-1.22[facility] Comment on above:Order Comment: Specimen Type: BLOOD SPECIMENOrdering Facility: [facility] Address:[address] [place] [address] Performed By: #### 6768-6, 24753-3, 18837-3 ####[facility] LABPROCTOR [facility] [id number] [address] [place] AMERICACreatinine and Glomerular filtration rate.predicted panel (S/P/Bld)72 mL/min/1.73m???Normal>=60[facility] on above:Order Comment: Specimen Type: BLOOD SPECIMENOrdering Facility: [facility] Address:[address] [place], [place] [address]Result Comment: Estimated Glomerular Filtration Rate (eGFR) is [...] accurately reflect actual GFR.Performed By: #### 6768-6, 14670-8, 39679-4 ####[facility]ENTERIA [id number] [address] [place] AMERICAGlucose [Mass/Vol]116 mg/dLHigh 74-99[facility] on above:Order Comment: Specimen Type: BLOOD SPECIMENOrdering Facility: [facility] Address:[address] [place], [place] [address]Result Comment: The [place] Diabetes Association (ADA) provides guidance for cutoff [...] Standards of Medical Care in Diabetes 2016, [place] Diabetes Association. Diabetes Care. 2016.39(Suppl 1).Performed By: #### 6768-6, 55840-1, 00905-4 ####[facility] LABCLIA [id number] [address] [place] AMERICAPotassium [Moles/Vol] 4.1 mmol/LNormal3.7-5.1CCherrington Hospital on above:Order Comment: Specimen Type: BLOOD SPECIMENOrdering Facility: [facility] Address:[address] [place], [place] [address]Performed By: #### 6768-6, 48458-6, 52638-1 ####[facility] LABIA [id number] VILLE [id number] [place] AMERICAProtein [Mass/Vol]7.6 g/dLNormal 6.3-8.0[facility] on above:Order Comment: Specimen Type: BLOOD SPECIMENOrdering Facility: [facility] Address:[address] [place], [place] [address]Performed By: #### 6768-6, 13952-1, ####[facility] LABIA [id number] [address] [place] AMERICASodium [Moles/Vol]142 mmol/L Aivywl312-892BrdmffhtpOhioHealth O'Bleness Hospital on above:Order Comment: Specimen Type: BLOOD SPECIMENOrdering Facility: [facility] Address:[address] [place], [place] [address]Performed By: #### 6768-6, 29928-6, 40165-4 ####[facility] LABIA [id number] VILLE [id number] [place] AMERICAUrea nitrogen [Mass/Vol]35 mg/dL High9-24[facility] on above:Order Comment: Specimen Type: BLOOD SPECIMENOrdering Facility: [facility] Address:[address] [place], [place] [address]Performed By: #### 6768-6, 44255-1, 35805-9 ####[facility] LABCLIA [id number] [address] [address] [place] AMERICAAlbumin [Mass/Vol]4.2 g/dL3.9 - 4.9 g/dLPatillas ClinicALP [Catalytic activity/Vol]124 U/LHigh38 - 113 U/L [facility] ClinicALT [Catalytic activity/Vol]40 U/L10 - 54 U/LC[facility] Clinic Anion gap [Moles/Vol]13 mmol/L8 - 15 mmol/LCleveland ClinicAST [Catalytic activity/Vol]49 U/LHigh14 - 40 U/LCleveland ClinicBilirubin [Mass/Vol]0.7 mg/dL 0.2 - 1.3 mg/dLPatillas ClinicCalcium [Mass/Vol]9.3 mg/dL8.5 - 10.2 mg/dL [facility] ClinicChloride [Moles/Vol]100 mmol/L98 - 107 mmol/LCleveland ClinicCO2 [Moles/Vol]28 mmol/L22 - 30 mmol/LCleveland ClinicCreatinine [Mass/Vol]1.13 mg/dL0.73 - 1.22 mg/dLPatillas ClinicGFR/1.73 sq M.predicted among non-blacks MDRD (S/P/Bld) [Vol rate/Area]69 mL/min/{1.73_m2}- PINMercy Health Tiffin HospitalComment on above:Estimated Glomerular Filtration Rate (eGFR) [...] not accurately reflect actual GFR.Glucose [Mass/Vol] 104 mg/ePSvjl28 - 99 mg/dLSelect Medical Specialty Hospital - Cleveland-FairhillComment on above:The [place] Diabetes Association (ADA) provides guidance for cutoff [...] Standards of Medical Care in Diabetes 2016, [place] Diabetes Association. Diabetes Care. 2016.39(Suppl 1). Potassium [Moles/Vol]3.8 mmol/L3.7 - 5.1 mmol/LCleveland ClinicProtein [Mass/Vol]7.5 g/dL6.3 - 8.0 g/dLPatillas ClinicSodium [Moles/Vol]141 mmol/L136 - 144 mmol/LCleveland ClinicUrea nitrogen [Mass/Vol]33 mg/dLHigh9 - 24 mg/dL [place] Westergren method (Bld) [Velocity]on 92-68-0837RJL (Bld) [Velocity]34 mm/hHighSelect Medical Specialty Hospital - Cleveland-FairhillInterpretation and review of laboratory resultsAbnormalCleveland [place] (Bld) [Velocity]34 mm/hHigh 0-15[facility] SystemComment on above:Order Comment: Specimen Type: BLOOD SPECIMENOrdering Facility: [facility] Address:[address] [place], [place] [address]Performed By: #### 88079-5, 4537-7 ####[facility] LABCLIA [id number] [address] [facility] [facility]DM[facility] HOSPITALHIGH SENSITIVITY C-REACTIVE PROTEINon [id number] High sensitivity method [Mass/Vol]13.2 mg/LHighNINF - 3.1 mg/LCprotestant deaconess hospitaland [facility] Comment on above:hsCRP < 1.0 mg/L, relative risk is low hsCRP 1.0-3.0 mg/L, relative risk is average hsCRP > 3.0 mg/L, relative risk is high Reference: Roman TA, Wilma GA, Octavio RW, et al. Markers of Inflammation and Cardiovascular Disease. Application to Clinical and Public Health Practice. A Statement for Healthcare Professionals from the Centers for Disease Control and Prevention and the [place] [employer]. Circulation 2003;107:499-511. Laboratory - Chemistry and Chemistry - challengeon 21-74-2245Amcnq glutamyl transferase [Catalytic activity/Vol]136 U/LHigh10 - 70 U/LCleveland Clinic Magnesium [Mass/Vol]2.2 mg/dL1.7 - 2.3 mg/dLSelect Medical Specialty Hospital - Cleveland-FairhillMagnesium [Mass/Vol] on 91-03-8571Lqoryjaxzdsdpt and review of laboratory resultsNormalCMiami Valley HospitalNo Panel Informationon 54-88-1137Tnoilsucwytrey and review of laboratory resultsAbnormalCprotestant deaconess hospitaland Trinity Health SystemInterpretation and review of laboratory resultsAbnormalCprotestant deaconess hospitaland Trinity Health SystemProt/Creat Uron 11-16-3289Wtlfcgu/Creatinine (U) [Mass ratio]mg/gHigh<0.15[facility] on above:Order Comment: Specimen Type: URINE SPECIMENOrdering Facility: [facility] Address:[address] [place], [place] [address]Result Comment: Adult Proteinuria Categories:<0.15 mg/mg is considered normal to mildly increased0.15 - 0.50 mg/mg is considered moderately increased>0.50 mg/mg is considered severely increasedKDIGO. (2013). KDIGO 2012 Clinical Practice Guideline for the Evaluation and Management of Chronic Kidney Disease. Official Journal of the International Society of Nephrology, 3(1), 1-150.Performed By: #### 2890-2 ####[facility] [id number] [place] [address] [place] Protein/Creatinine (U) [Mass ratio]on 33-39-7926Kuhpzfzwvk (U) [Mass/Vol]12.6 mg/dLLow20.0-300.0[facility] on above:Order Comment: Specimen Type: URINE SPECIMENOrdering Facility: [facility] Address:[address] [id number] By: #### 2890-2 ####[facility] [id number] [facility] [id number] [place] [address] [facility] BO[facility]DMAN HOSPITALProtein (U) [Mass/Vol]mg/dLNormal 0-20[facility] on above:Order Comment: Specimen Type: URINE SPECIMENOrdering Facility: [facility] Address:[address] [place], [place] [address]Performed By: #### 2890-2 ####[facility] LABCLIA [id number] [place] [address] [place] AMERICAUA DIP, URINE (POC)on 75-25-9819CYTUHLCUP UA (POCT)Negative NegativePatillas ClinicCLARITY UA (POCT)ClearSelect Medical Specialty Hospital - Cleveland-FairhillCOLOR UA (POCT) Light yellowSelect Medical Specialty Hospital - Cleveland-FairhillGLUCOSE UA (POCT)NegativeNegative mg/dLSelect Medical Specialty Hospital - Cleveland-FairhillHemoglobin Ql (U)NegativeNegativePatillas ClinicKETONE UA (POCT)Negative Negative mg/dLSelect Medical Specialty Hospital - Cleveland-FairhillLEUKOCYTES UA (POCT)NegativeNegativeSelect Medical Specialty Hospital - Cleveland-FairhillNITRITE UA (POCT)NegativeNegativeSelect Medical Specialty Hospital - Cleveland-FairhillPH UA (POCT)74.5 - 8.0 EspinosaEast Ohio Regional HospitalProtein Ql (U)NegativeNegative mg/dLSumma Health Barberton CampusPECIFIC GRAVITY UA (POCT)1.0151.005 - 1.030[facility]-FairhillUROBILINOGEN UA (POCT)0.2 Normal E.U./dLSelect Medical Specialty Hospital - Cleveland-FairhillLocation:[facility], [address] [place] [address], [address] [place] [address] POINT OF CARESelect Medical Specialty Hospital - Cleveland-FairhillCBC panel Auto (Bld)on 12-64-1563Gizamypkfrj distribution width (RBC) [Ratio]15.7 %High 11.5 - 15.0 %[facility]-FairhillHematocrit (Bld) [Volume fraction]39.8 %39.0 - 51.0 %[facility]-FairhillHemoglobin (Bld) [Mass/Vol]13 g/dL13.0 - 17.0 g/dLSelect Medical Specialty Hospital - Cleveland-FairhillInterpretation and review of laboratory resultsAbnormalCCleveland Clinic Akron GeneralH (RBC) [Entitic mass]31.9 pg26.0 - 34.0 pgClevelJackson Medical CenterHC (RBC) [Mass/Vol] 32.7 g/dL30.5 - 36.0 g/dLProMedica Toledo HospitalV (RBC) [Entitic vol]97.5 fL80.0 - 100.0 fLCleveland ClinicNucleated RBC (Bld) [#/Vol]NINFClevelunc health ClinicPlatelet mean volume (Bld) [Entitic vol]10.9 fL9.0 - 12.7 fLCleveland ClinicPlatelets (Bld) [#/Vol]183 10*3/St. Charles HospitalRBC (Bld) [#/Vol]4.08 10*6/uLLow4.20 - 6.00 m/St. Charles HospitalWBC (Bld) [#/Vol]7.85 10*3/Fairfield Medical CenterErythrocyte distribution width (RBC) [Ratio]15.7 %High11.5-15.0Mount Carmel Health SystemComment on above:Order Comment: Specimen Type: BLOOD SPECIMENOrdering Facility: [facility] Address:[address] [place], [place] [address]Performed By: #### 14602-9 ####[facility] [id number] [place] [address] [place] [address] [facility] [address] [facility] BOARDMAN HOSPITALHematocrit (Bld) [Volume fraction]39.8 %Iqbvsn56.0-51.0[facility] on above:Order Comment: Specimen Type: BLOOD SPECIMENOrdering Facility: [facility] Address:[address] [place], [place] [address]Performed By: #### 96168-1 ####[facility] [id number] [place] [address] [place] Hemoglobin (Bld) [Mass/Vol]13.0 g/mLQyyssy02.0-17.0[facility] Comment on above:Order Comment: Specimen Type: BLOOD SPECIMENOrdering Facility: [facility] Address:[address] [place] [address] Performed By: #### 28177-0 ####[facility] [id number] [place] [address] [place] MCH (RBC) [Entitic mass]31.9 mwYriwsh59.0-34.0[facility] on above:Order Comment: Specimen Type: BLOOD SPECIMENOrdering Facility: [facility] Address:[address] [place] [address] Performed By: #### 90164-8 ####[facility] LABIA [id number] [place] [address] [place] MCHC (RBC) [Mass/Vol]32.7 g/nCGizuuf94.5-36.0[facility] on above:Order Comment: Specimen Type: BLOOD SPECIMENOrdering Facility: [facility] Address:[address] [place] [address] Performed By: #### 34512-7 ####[facility] LABIA [id number] [place] [address] [place] MCV (RBC) [Entitic vol]97.5 xPUuqhem40.0-100.0[facility] on above:Order Comment: Specimen Type: BLOOD SPECIMENOrdering Facility: [facility] Address:[address] [place] [address] Performed By: #### 50701-8 ####[facility] [id number] [place] [address] [place] Nucleated RBC (Bld) [#/Vol]10*3/uLNormal<0.01[facility] on above:Order Comment: Specimen Type: BLOOD SPECIMENOrdering Facility: [facility] Address:[address] [place] [address] Performed By: #### 02665-5 ####[facility]PRO[facility] [id number] [place] [address] [place] Platelet mean volume (Bld) [Entitic vol]10.9 fLNormal9.0-12.7CCherrington Hospital on above:Order Comment: Specimen Type: BLOOD SPECIMENOrdering Facility: [facility] Address:[address] [place], [place] [address]Performed By: #### 95815-0 ####[facility] [id number] [address] [address] [place] Platelets (Bld) [#/Vol]183 10*3/aWKlytiv059-570ZpavxuyxiOhioHealth O'Bleness Hospital on above:Order Comment: Specimen Type: BLOOD SPECIMENOrdering Facility: [facility] Address:[address] [place] [address] Performed By: #### 59246-0 ####[facility] LABCLIA [id number] [place] [address] [place] RBC (Bld) [#/Vol]4.08 10*6/uLLow4.20-6.00[facility] on above:Order Comment: Specimen Type: BLOOD SPECIMENOrdering Facility: [facility] Address:[address] [place], [place] [address]Performed By: #### 58682-5 ####[facility] LABCLIA [id number] [address] STATES OF AMERICAWBC (Bld) [#/Vol]7.85 10*3/uLNormal3.70-11.00[facility] on above:Order Comment: Specimen Type: BLOOD SPECIMENOrdering Facility: [facility] Address:[address] [place], [place] [address]Performed By: #### 25078-0 ####[facility] LABCLIA [id number] [place] [address] [place] AMERICACNOVon 39-07-0246MHHICslcwy [facility] Health SystemComprehensive metabolic 2000 panelon 31-57-2917Mrqlbjj [Mass/Vol]4.2 g/dLNormal3.9-4.9CCherrington Hospital on above:Order Comment: Specimen Type: BLOOD SPECIMENOrdering Facility: [facility] Address:[address] [place], [place] [address]Performed By: #### 08227- 8, 22270-5, 2324-2 ####[facility] LABCLIA [id number] AVENUEDESK [address], [place] [address] [place] AMERICAALP [Catalytic activity/Vol]124 U/BZgon27-582RwfgmcujcOhioHealth O'Bleness Hospital on above:Order Comment: Specimen Type: BLOOD SPECIMENOrdering Facility: [facility] Address:[address] [place], [place] [address]Performed By: #### 80658- 8, 59370-5, 2 ####[facility] LABCLIA [id number] [address] [id number] [place] AMERICAALT [Catalytic activity/Vol]40 U/BKkuvpa60-69OmaxcuqmmOhioHealth O'Bleness Hospital on above:Order Comment: Specimen Type: BLOOD SPECIMENOrdering Facility: [facility] Address:[address] [place], [place] [address]Performed By: #### 54328- 8, , 2323-07 ####[facility] LABCLIA [id number] [address] [address] [place] AMERICAAnion gap [Moles/Vol] 13 mmol/LNormal8-15[facility] on above:Order Comment: Specimen Type: BLOOD SPECIMENOrdering Facility: [facility] Address:[address] [place], [place] [address]Performed By: #### 44580-6, , 2323-07 ####[facility] LABCLIA [id number] [place] [address] [place] AMERICAAST [Catalytic activity/Vol]49 U/SZtmv77-44FqdgmwotoOhioHealth O'Bleness Hospital on above:Order Comment: Specimen Type: BLOOD SPECIMENOrdering Facility: [facility] Address:[address] [place], [place] [address]Performed By: #### 68294-8, , 2323-07 ####[facility] LABCLIA [id number] [address] [address] [place] AMERICABilirubin [Mass/Vol]0.7 mg/dL Normal0.2-1.3CCherrington Hospital on above:Order Comment: Specimen Type: BLOOD SPECIMENOrdering Facility: [facility] Address:[address] [place], [place] [address]Performed By: #### 48824-8, , 2323-07 ####[facility] LABCLIA [id number] [place] [address] [place] AMERICACalcium [Mass/Vol]9.3 mg/dLNormal 8.5-10.2CCherrington Hospital on above:Order Comment: Specimen Type: BLOOD SPECIMENOrdering Facility: [facility] Address:[address] [place], [place] [address]Performed By: #### 30110-0, , 2323-07 ####[facility] LABCLIA [id number] [address]IL[place] [id number] [place] AMERICAChloride [Moles/Vol]100 mmol/L Gvmaou79-339YjzawkrzpOhioHealth O'Bleness Hospital on above:Order Comment: Specimen Type: BLOOD SPECIMENOrdering Facility: [facility] Address:[address] [place], [place] [address]Performed By: #### 56335-6, , 2323-07 ####[facility] LABCLIA [id number] [place] [address] [place] AMERICACO2 [Moles/Vol]28 mmol/LNormal 22-30[facility] on above:Order Comment: Specimen Type: BLOOD SPECIMENOrdering Facility: [facility] Address:[address] [place], [place] [address]Performed By: #### 24031-3, , 2323-07 ####[facility] LABCLIA [id number] VILLE [id number] [place] AMERICACreatinine [Mass/Vol]1.13 mg/dL Normal0.73-1.22[facility] on above:Order Comment: Specimen Type: BLOOD SPECIMENOrdering Facility: [facility] Address:[address] [place] [address]Kgbpzxbmu By: #### 05506-8, 67550-8, 4-2 ####[facility]ENTERIA [id number] [address] [place] AMERICACreatinine and Glomerular filtration rate.predicted panel (S/P/Bld)69 mL/min/1.73m???Normal>=60[facility] on above:Order Comment: Specimen Type: BLOOD SPECIMENOrdering Facility: [facility] Address:[address] [place] [address]Nmxbdy Comment: Estimated Glomerular Filtration Rate (eGFR) is calculated using the 2020 CKD-EPI creatinine equation. This equation utilizes serum creatinine, sex, and age as parameters. The creatinine assay has traceable calibration to isotope dilution-mass spectrometry. Refer to KDIGO guidelines for clinical interpretation. In patients with unstable renal function, e.g. those with acute kidney injury, the eGFR may not accurately reflect actual GFR.Performed By: #### 02128-0, 36604-0, 4-2 ####[facility] LABIA [id number] [address] [place] AMERICAGlucose [Mass/Vol]104 mg/xOPgek08-74SnlekpyywOhioHealth O'Bleness Hospital on above:Order Comment: Specimen Type: BLOOD SPECIMENOrdering Facility: [facility] Address:[address] [place] [address]Fsolhl Comment: The [place] Diabetes Association (ADA) provides guidance for cutoff [...] Standards of Medical Care in Diabetes 2016, [place] Diabetes Association. Diabetes Care. 2016.39(Suppl 1).Performed By: #### 42074- 8, 19247-5, 2323-2 ####[facility] LABCLIA [id number] VILLE [id number] [place] AMERICAPotassium [Moles/Vol] 3.8 mmol/LNormal3.7-5.1CCherrington Hospital on above:Order Comment: Specimen Type: BLOOD SPECIMENOrdering Facility: [facility] Address:[address] [place], [place] [address]Performed By: #### 57572-7, 80106-9, 2323-07 ####[facility] LABIA [id number] VIL[place] [id number] [place] AMERICAProtein [Mass/Vol]7.5 g/dLNormal 6.3-8.0[facility] on above:Order Comment: Specimen Type: BLOOD SPECIMENOrdering Facility: [facility] Address:[address] [place], [place] [address]Performed By: #### 16153-7, , 2323-07 ####[facility] LABIA [id number] VILLE [id number] [place] AMERICASodium [Moles/Vol]141 mmol/L Weszga163-503VjgdjudpiOhioHealth O'Bleness Hospital on above:Order Comment: Specimen Type: BLOOD SPECIMENOrdering Facility: [facility] Address:[address] [place], [place] [address]Performed By: #### 10716-9, , 2323-07 ####[facility] LABPRO[facility] [id number] VILLE [id number] [place] AMERICAUrea nitrogen [Mass/Vol]33 mg/dL High9-24[facility] on above:Order Comment: Specimen Type: BLOOD SPECIMENOrdering Facility: [facility] Address:[address] [place], [place] [address]Performed By: #### 44921-0, 22126-4, 2323-07 ####[facility] LABCLIA [id number] [place] [id number] [place] AMERICAGGT SerPl-cCncon 23-01-7571Zsbft glutamyl transferase [Catalytic activity/Vol]136 U/QNzka17-05QdplcvdasOhioHealth O'Bleness Hospital on above:Order Comment: Specimen Type: BLOOD SPECIMENOrdering Facility: [facility] Address:[address] [place], [place] [address]Performed By: #### 15569-0, , 2323-07 ####[facility] LABCLIA [id number] CLARK STREETLDH Fld-cCncon 90-70-3705HRN (Body fld) [Catalytic activity/Vol]110 U/LNormalSee CommentOhioHealth O'Bleness Hospital on above: Order Comment: Specimen Type: SPECIMEN FROM PLEURA OBTAINED BY THORACENTESISOrdering Facility: [facility] Address: [address] [place], [place] [address]Result Comment: Pleural fluids: Pleural fluid lactate dehydrogenase [...] document C49A. Hao, [place]: Clinical Laboratory Standards [place]: 2007.Reference: 2. Rafael STARK, Fei Doyle. Body [...] 1992:19:529 to 533.Performed By: #### 2529-6, 2881-1 ####[facility] LABCLIA [id number] [place] [address] [place] AMERICAMagnesium SerPl-mCncon 31-73-5781Obdlzsxmn [Mass/Vol]2.2 mg/dLNormal 1.7-2.3ClevelKindred Healthcare on above:Order Comment: Specimen Type: BLOOD SPECIMENOrdering Facility: [facility] Address:[address] [place], [place] [address]Performed By: #### 25489-3, 41347-6, 2324-2 ####[facility] LABCLIA [id number] [address] [place] AMERICAOPERATIVE NOon 10-14-2024 OPERATIVE NONormalMount Carmel Health SystemProt Fld-mCncon 26-51-6850Vbgilwp (Body fld) [Mass/Vol]2.5 g/dLNormalSee CommentOhioHealth O'Bleness Hospital on above:Order Comment: Specimen Type: SPECIMEN FROM PLEURA OBTAINED BY THORACENTESISOrdering Facility: [facility] Address: [address] [place], [place] [address]Result Comment: Serous fluids: Effusions are the accumulation [...] document C49A. RAJEEV Bui: Clinical Laboratory Standards [place]: 2007.Performed By: #### 2529-6, 2881-1 ####[facility] LABCLIA [id number] [address] [place] [address] [place] OF AMERICAUS Chest limitedon 78-21-8571Qzkwdnabm Study observation (narrative)[facility]FairhillXR CHEST 2V FRONTAL/LATon 16-72-2290UE CHEST 2V FRONTAL/LATNormalCKindred Hospital LimaXR Chest PA and Lateralon 96-86-4829VGRTPTWSOQ: 1. Small located/partially loculated right pleural effusion, [...] any questions regarding this interpretation, please call [phone]. If you are unable to reach us at the number above, please feel free to contact [facility] eRadiology at [phone].DIVISION OF RADIOLOGY* * *Final Report* * * [...] and soft tissues: Unremarkable. DIVISION OF RADIOLOGYProvider, [facility] [place] - 10/13/2024 * * *Final Report* * [...] any questions regarding this interpretation, please call [phone]. If you are unable to reach us at the number above, please feel free to contact [facility] eRadiology at [phone]. [facility]-FairhillRadiology Study observation (narrative)[facility]FairhillXR Chest PA and LateralOrdered By: Ccf Provider on 28-10-3261Nfpcmdney ClinicCNPNon 57-53-4121BDNOLmjdocFiuyoqfcwACMC Healthcare SystemBRIEF OP NOTon 01-52-0908QAFUH OP NOTNormalCKindred Hospital LimaCNPNon 17-14-5264BTYKUneepyZdkntjnkuACMC Healthcare SystemANES POSTPROC EVALon 84-47-1528XOWG POSTPROC EVALNormalCKindred Hospital LimaANES PRE-OPon 14-89-8477NNON PRE-OPNormalMount Carmel Health SystemEGD Study observation Narrativeon 48-80-7358Ewhwwzyjt ClinicRadiology Study observation (narrative)[facility]FairhillHISTORY PHYSICALon 00-20-4630RHBMQZV PHYSICALNormalCKindred Hospital LimaNURSING PROGon 09-81-8176VSZUFWV PROG NormalMount Carmel Health SystemNURSING PROGNormalMount Carmel Health System Pathology biopsy report Abhijit (Tiss)on 06-42-1348ELBXUBTX 1:NormalOhioHealth O'Bleness Hospital on above:Order Comment: Specimen Type: TISSUE SPECIMENOrdering Facility: [facility] Address: [address] [place], [place] [address]Result Comment: Addendum is issued to reflect the result of immunohistochemical stain:- Immunostainfor H. pylori is negative in part A.Addendum electronically signed by Simba Frias MD, PhD on 10/01/2024 at 1725 EDTPerformed By: #### 47569-1 ####[facility] LABPROCTOR [facility] [id number] [address] [address] [facility] AP DISCLAIMERNoRegency Hospital Company on above:Order Comment: Specimen Type: TISSUE SPECIMENOrdering Facility: [facility] Address: [address] [place], [place] [address]Result Comment: Laboratory Developed Test (LDT) Disclaimer:Performance characteristics of immunohist ochemical, immunofluorescent, and chromogenic in-situ hybridization tests have been determined by the performing laboratory within [facility] Pathology and Laboratory Medicine Department ([facility], [facility], [facility], [facility], [facility], [facility], or [facility]) in a manner consistent with CLIA requirements. One or more of these tests may not have been cleared or approved by the FDA. RT-PLM is regulated under CLIA as qualified to perform high-complexity testing. These tests are used for clinical purposes. These should not be regarded as investigational or for research. Positive and negative controls stain appropriately.Performed By: #### 23365-8 ####[facility] LABIA [id number] [address] [address] [employer] [address] [facility] HOSPITALCASE REPORTNormSycamore Medical Center on above:Order Comment: Specimen Type: TISSUE SPECIMENOrdering Facility: [facility] Address: [address] [place], [place] [address]Result Comment: Surgical Pathology Report Case: [id number] Provider: Shay Dennis MD Collected: 09/25/2024 11:32 AMOrdering Location: Gastroenterology Received: 09/25/2024 04:32 PMPathologist: Simba Frias MD, PhDSpecimen: Stomach, Biopsy, R/O: H. PyloriPerformed By: #### 82488-8 ####[facility] LABCLIA [id number] [address] [place] [address] [facility] on above:Order Comment: Specimen Type: TISSUE SPECIMENOrdering Facility: [facility] Address: [address] [place], [place] [address]Result Comment: A. Stomach, biopsy:- Chronic focally active gastritis and reactive gastropathy in antral and oxyntic mucosa.- Negative for intestinal metaplasia or dysplasia.- H. pylori immunostain will be reported as an addendum. at 1344 EDTPerformed By: #### 42871-9 ####[facility] LABCLIA [id number] [address] [address] [facility] FINAL [facility] on above:Order Comment: Specimen Type: TISSUE SPECIMENOrdering Facility: [facility] Address: [address] [place], [place] [address]Result Comment: Diagnostic interpretation performed at: [facility], [address] [place] [address], [place] [id number] CLIA# [id number] Director: RAYRAY Thompsonerformed By: #### 58434-7 ####[facility] LABCLIA [id number] [address] [address] [facility]GR[facility] on above:Order Comment: Specimen Type: TISSUE SPECIMENOrdering Facility: [facility] Address: [address] [place], [place] [address]Result Comment: A. Stomach, BiopsyReceived in formalin are multiple pieces of de la garza, soft tissue aggregating to 1.9 x 0.3 x 0.2 cm. Totally submitted in one cassette.Gross examination performed at [facility], [address] [id number] September 25, 2024 6:03 PMPerformed By: #### 11509-7 ####[facility] [facility] LABCLIA [id number] [address] AVENUEDESK F46LZSURHJVVPAUL [place] [id number] [employer] OF AMERICAUpper GI endoscopyon 63-79-9878Wcqai GI endoscopyNormalCKindred Hospital LimaCNPNon 09-23-2024 CNPNNormalMount Carmel Health SystemNURSING PROGon 65-19-2536ZXKLCNG PROGNormal [facility] SystemCNon 21-45-8937EEWXWaubkmKiasocvfk Clinic [place] Basic metabolic 2000 panelon 08-70-6761Yscmb gap [Moles/Vol]13 mmol/LNormal8-15 [facility] on above:Order Comment: Specimen Type: BLOOD SPECIMENOrdering Facility: [facility] Address:[address] [place], [place] [address]Performed By: #### 41064-7 ####[facility] LABCLIA [id number] [place], [place] [address]Qpxnkhq [Mass/Vol]9.2 mg/dLNormal8.5-10.2CCherrington Hospital on above: Order Comment: Specimen Type: BLOOD SPECIMENOrdering Facility: [facility] Address:[address] [place], [place] [address]Performed By: #### 39168- 2 ####[facility] LABCLIA [id number] [place], [place] [address]Wvresoqb [Moles/Vol]100 mmol/QHisnga93-342GlvdlepflOhioHealth O'Bleness Hospital on above:Order Comment: Specimen Type: BLOOD SPECIMENOrdering Facility: [facility] Address:[address] [place], [place] [address]Performed By: #### 00874-2 ####[facility] LABCLIA [id number] [place], [place] [address]AS5 [Moles/Vol] 24 mmol/GRphmlu64-09UgkdeucnpOhioHealth O'Bleness Hospital on above:Order Comment: Specimen Type: BLOOD SPECIMENOrdering Facility: [facility] Address:[address] [place], [place] [address]Performed By: #### 04393-9 ####[facility] LABCLIA [id number] [place], [place] [address]Myslcsncly [Mass/Vol]1.71 mg/dLHigh0.73-1.22[facility] on above:Order Comment: Specimen Type: BLOOD SPECIMENOrdering Facility: [facility] Address:[address] [place], [place] [address]Performed By: #### 59727-7 ####[facility] LABCLIA [id number] [place], [place] [address]Pkjydbzomi and Glomerular filtration rate.predicted panel (S/P/Bld)42 mL/min/1.73m???Low>=60 [facility] on above:Order Comment: Specimen Type: BLOOD SPECIMENOrdering Facility: [facility] Address:[address] [place], [place] [address]Result Comment: Estimated Glomerular Filtration Rate (eGFR) is calculated using the 2020 CKD-EPI creatinine equation. This equation utilizes serum creatinine, sex, and age as parameters. The creatinine assay has traceable calibration to isotope dilution-mass spectrometry. Refer to KDIGO guidelines for clinical interpretation. In patients with unstable renal function, e.g. those with acute kidney injury, the eGFR may not accurately reflect actual GFR.Performed By: #### 88097-3 ####[facility] LABCLIA [id number] [place], [place] [address]Xwgfbkr [Mass/Vol]107 mg/yAUqgc34-24QszgbxywwOhioHealth O'Bleness Hospital on above:Order Comment: Specimen Type: BLOOD SPECIMENOrdering Facility: [facility] Address:[address] [place], [place] [address]Result Comment: The [place] Diabetes Association (ADA) provides guidance for cutoff [...] Standards of Medical Care in Diabetes 2016, [place] Diabetes Association. Diabetes Care. 2016.39(Suppl 1).Performed By: #### 66924-5 ####[facility] LABIA [id number] [place], [place] [address]Ubnzhkoqa [Moles/Vol]4.9 mmol/LNormal3.7-5.1CCherrington Hospital on above: Order Comment: Specimen Type: BLOOD SPECIMENOrdering Facility: [facility] Address:[address] [place], [place] [address]Performed By: #### 98164- 2 ####[facility] LABIA [id number] [place], [place] [address]Ywpkem [Moles/Vol]137 mmol/RSeqdde637-884UkusafrnfOhioHealth O'Bleness Hospital on above:Order Comment: Specimen Type: BLOOD SPECIMENOrdering Facility: [facility] Address:[address] [place], [place] [address]Performed By: #### 63425-9 ####[facility] LABCLIA [id number] [place], [place] [address]Rrae nitrogen [Mass/Vol]53 mg/dLHigh9-24[facility] on above:Order Comment: Specimen Type: BLOOD SPECIMENOrdering Facility: [facility] Address:[address] [place], [place] [address]Performed By: #### 75437-5 ####[facility] LABIA [id number] [place] [address] CBC panel Auto (Bld)on 06-67-0010Pcrqoyygwoz distribution width (RBC) [Ratio] 15.8 %High11.5-15.0[facility] on above:Order Comment: Specimen Type: BLOOD SPECIMENOrdering Facility: [facility] Address:[address] [place], [place] [address]Performed By: #### 94569-6 ####[facility] LABCLIA [id number] [place], [place] [address]Zifarbsafr (Bld) [Volume fraction]37.8 %Low39.0-51.0 [facility] on above:Order Comment: Specimen Type: BLOOD SPECIMENOrdering Facility: [facility] Address:[address] [place], [place] [address]Performed By: #### 76993-1 ####[facility] LABCLIA [id number] [place], [place] [address]Gilfejmsby (Bld) [Mass/Vol]12.0 g/dLLow13.0-17.0[facility] on above:Order Comment: Specimen Type: BLOOD SPECIMENOrdering Facility: [facility] Address:[address] [place], [place] [address]Performed By: #### 82605- 2 ####[facility] LABCLIA [id number] [place], [place] [address]ASD (RBC) [Entitic mass]31.3 fgOkhojw04.0-34.0[facility] on above:Order Comment: Specimen Type: BLOOD SPECIMENOrdering Facility: [facility] Address:[address] [place], [place] [address]Performed By: #### 92346-0 ####[facility] LABCLIA [id number] [place], [place] [address]LURY (RBC) [Mass/Vol]31.7 g/nGRigpkc43.5-36.0[facility] on above: Order Comment: Specimen Type: BLOOD SPECIMENOrdering Facility: [facility] Address:[address] [place], [place] [address]Performed By: #### 51097- 2 ####[facility] LABCLIA [id number] [place], [place] [address]BUJ (RBC) [Entitic vol]98.4 jOVtkqul08.0-100.0[facility] on above:Order Comment: Specimen Type: BLOOD SPECIMENOrdering Facility: [facility] Address:[address] [place], [place] [address]Performed By: #### 46809-5 ####[facility] LABIA [id number] [place], [place] [address]Gbguihxhm RBC (Bld) [#/Vol]10*3/uLNormal<0.01[facility] on above:Order Comment: Specimen Type: BLOOD SPECIMENOrdering Facility: [facility] Address:[address] [place], [place] [address]Performed By: #### 01442- 2 ####[facility] LABIA [id number] [place], [place] [address]Sompvcqs mean volume (Bld) [Entitic vol]9.9 fLNormal 9.0-12.7CCherrington Hospital on above:Order Comment: Specimen Type: BLOOD SPECIMENOrdering Facility: [facility] Address:[address] [place], [place] [address]Performed By: #### 23706-8 ####[facility] LABIA [id number] [place], [place] [address]Fnphydids (Bld) [#/Vol]250 10*3/iIFfuscy568-796RsufwupmkOhioHealth O'Bleness Hospital on above: Order Comment: Specimen Type: BLOOD SPECIMENOrdering Facility: [facility] Address:[address] [place], [place] [address]Performed By: #### 41201- 2 ####[facility] LABCLIA [id number] [place], [place] [address]HVP (Bld) [#/Vol]3.84 10*6/uLLow4.20-6.00[facility] on above:Order Comment: Specimen Type: BLOOD SPECIMENOrdering Facility: [facility] Address:[address] [place], [place] [address]Performed By: #### 57701-9 ####[facility] LABCLIA [id number] [place], [place] [address]GNZ (Bld) [#/Vol]11.59 10*3/uL High3.70-11.00[facility] on above:Order Comment: Specimen Type: BLOOD SPECIMENOrdering Facility: [facility] Address:[address] [place], [place] [address]Performed By: #### 61526-8 ####[facility] LABIA [id number] [place] [address] CNPNon 80-53-9035JQIHCapbgnFfpzkvvqj Clinic ClevelandOPERATIVE NOon 09-04-2024 OPERATIVE NONormalMount Carmel Health SystemComprehensive metabolic 2000 panelon 69-17-4462Fjnixts [Mass/Vol]4.1 g/dLNormal3.9-4.9CKindred Hospital Lima Comment on above:Order Comment: Specimen Type: BLOOD SPECIMENOrdering Facility: [facility] Address:[address] [place] [address] Performed By: #### 64682-7, 07769-5 ####[facility] LABIA [id number] [place], [place] [address]RVS [Catalytic activity/Vol]140 U/WFcph81-101NfcjcmawgOhioHealth O'Bleness Hospital on above:Order Comment: Specimen Type: BLOOD SPECIMENOrdering Facility: [facility] Address:[address] [place], [place] [address]Performed By: #### 44914- 9, 86891-7 ####[facility] LABCLIA [id number] [place], [place] [address]PHC [Catalytic activity/Vol]12 U/WIgrqhw60-37 [facility] on above:Order Comment: Specimen Type: BLOOD SPECIMENOrdering Facility: [facility] Address:[address] [place], [place] [address]Performed By: #### 78274-7, 12401-4 ####[facility] LABCLIA [id number] [place], [place] [address]Kouli gap [Moles/Vol]18 mmol/LHigh8-15[facility] on above:Order Comment: Specimen Type: BLOOD SPECIMENOrdering Facility: [facility] Address:[address] [place], [place] [address]Performed By: #### 89576- 9, 54315-7 ####[facility] LABCLIA [id number] [place], [place] [address]JHF [Catalytic activity/Vol]27 U/LSvggdx15-83 [facility] on above:Order Comment: Specimen Type: BLOOD SPECIMENOrdering Facility: [facility] Address:[address] [place], [place] [address]Performed By: #### 38673-1, 38008-8 ####[facility] LABCLIA [id number] [place] [address] Bilirubin [Mass/Vol]0.6 mg/dLNormal0.2-1.3CCherrington Hospital on above:Order Comment: Specimen Type: BLOOD SPECIMENOrdering Facility: [facility] Address:[address] [place], [place] [address]Performed By: #### 56906-5, 48690-9 ####[facility] LABCLIA [id number] [place], [place] [address]Geqwpsp [Mass/Vol]9.1 mg/dLNormal8.5-10.2 [facility] on above:Order Comment: Specimen Type: BLOOD SPECIMENOrdering Facility: [facility] Address:[address] [place], [place] [address]Performed By: #### 06189-3, 58015-1 ####[facility] LABCLIA [id number] [place], [place] [address]Rwlfpqdz [Moles/Vol]96 mmol/MTms64-457NlrvgzanpOhioHealth O'Bleness Hospital on above:Order Comment: Specimen Type: BLOOD SPECIMENOrdering Facility: [facility] Address:[address] [place], [place] [address]Performed By: #### 96710- 9, 64347-9 ####[facility] LABCLIA [id number] [place], [place] [address]YE5 [Moles/Vol]28 mmol/GDesqru46-74KvzoukuabOhioHealth O'Bleness Hospital on above:Order Comment: Specimen Type: BLOOD SPECIMENOrdering Facility: [facility] Address:[address] [place], [place] [address]Performed By: #### 39352-8, 81109-2 ####[facility] LABCLIA [id number] [place], [place] [address]Zdxwxrrtma [Mass/Vol] 1.72 mg/dLHigh0.73-1.22[facility] on above:Order Comment: Specimen Type: BLOOD SPECIMENOrdering Facility: [facility] Address:[address] [place], [place] [address]Performed By: #### 89890-3, 64644-4 ####[facility] LABCLIA [id number] [place], [place] [address]Odbgccpsok and Glomerular filtration rate.predicted panel (S/P/Bld)41 mL/min/1.73m???Low>=60[facility] on above: Order Comment: Specimen Type: BLOOD SPECIMENOrdering Facility: [facility] Address:[address] [place], [place] [address]Result Comment: Estimated Glomerular Filtration Rate (eGFR) is [...] not accurately reflect actual GFR.Performed By: #### 36602-0, 29773-9 ####[facility] LABCLIA [id number] [place], [place] [address]Nxczsrn [Mass/Vol]189 mg/rERzoz46-68EyvtxhxnrOhioHealth O'Bleness Hospital on above:Order Comment: Specimen Type: BLOOD SPECIMENOrdering Facility: [facility] Address:[address] [place], [place] [address]Result Comment: The [place] Diabetes Association (ADA) provides guidance for cutoff [...] Standards of Medical Care in Diabetes 2016, [place] Diabetes Association. Diabetes Care. 2016.39(Suppl 1).Performed By: #### 85748- 9, 95959-8 ####[facility] LABCLIA [id number] [place], [place] [address]Qkhrkaxyx [Moles/Vol]3.1 mmol/LLow3.7-5.1CCherrington Hospital on above:Order Comment: Specimen Type: BLOOD SPECIMENOrdering Facility: [facility] Address:[address] [id number] By: #### 31456-5, 92504-9 ####[facility] LABCLIA [id number] [place], [place] [address]Jnxevxc [Mass/Vol]7.4 g/dLNormal6.3-8.0[facility] on above:Order Comment: Specimen Type: BLOOD SPECIMENOrdering Facility: [facility] Address:[address] [place], [place] [address]Performed By: #### 91698- 9, 58580-3 ####[facility] LABCLIA [id number] [place], [place] [address]Lkvkfi [Moles/Vol]142 mmol/FTfeojj742-982ZxncykmjvOhioHealth O'Bleness Hospital on above:Order Comment: Specimen Type: BLOOD SPECIMENOrdering Facility: [facility] Address:[address] [place], [place] [address]Performed By: #### 24155-4, 27620-8 ####[facility] LABCLIA [id number] [place], [place] [address]Vsjz nitrogen [Mass/Vol]45 mg/dLHigh9-24[facility] on above: Order Comment: Specimen Type: BLOOD SPECIMENOrdering Facility: [facility] Address:[address] [place], [place] [address]Performed By: #### 73156- 9, 21627-9 ####[facility] LABCLIA [id number] [place], [place] [address]Alvdqjypaf - Chemistry and Chemistry - challengeon 04-34-4501Rhrpste [Mass/Vol]4.1 g/dL3.9-4.9A[facility] HospitalALP [Catalytic activity/Vol]140 U/HGkex93-049OhfuawdzeAultman HospitalALT [Catalytic activity/Vol]12 U/E68-29UdirnlavbAultman HospitalAST [Catalytic activity/Vol]27 U/E80-15IyipzdyjjAultman HospitalBilirubin [Mass/Vol]0.6 mg/dL0.2-1.3FMercy Health Defiance HospitalCalcium [Mass/Vol]9.1 mg/dL8.5-10.2FMercy Health Defiance HospitalChloride [Moles/Vol]96 mmol/LLow 98-107[facility] HospitalCO2 [Moles/Vol]28 mmol/N05-32MgyoiqeryAultman HospitalCreatinine [Mass/Vol]1.72 mg/dLHigh0.73-1.22[facility] HospitalGlucose [Mass/Vol]189 mg/oDJhaz07-83TcqguntklAultman HospitalComment on above:The [place] Diabetes Association (ADA) provides guidance for cutoff [...] diabetes.Reference: Standardsof Medical Care in Diabetes 2016, [place] Diabetes Association. Diabetes Care. 2016.39(Suppl 1).Magnesium [Mass/Vol]2.2 mg/dL 1.7-2.3FMercy Health Defiance HospitalPotassium [Moles/Vol]3.1 mmol/LLow 3.7-5.1FMercy Health Lorain Hospitalodium [Moles/Vol]142 mmol/N488-337 [facility] HospitalUrea nitrogen [Mass/Vol]45 mg/dLHigh9-24 [facility] HospitalMagnesium SerPl-mCncon 93-78-4333Gdfbajzed [Mass/Vol]2.2 mg/dLNormal1.7-2.3CKindred Hospital LimaComment on above:Order Comment: Specimen Type: BLOOD SPECIMENOrdering Facility: [facility] Address:[address] [place] [address]Pnrzlbjzi By: #### 38325- 9, 37512-8 ####[facility] LABCLIA [id number] [place], [place] [address]Xn Panel Informationon 50-06-3491Salybzndv GFR (CKD-EPI)41 mL/min/1.73m???Low>=60A[facility]man HospitalComment on above:Estimated Glomerular Filtration Rate (eGFR) [...] actual GFR.Protein [Mass/volume] in Serum or Plasmaon 60-90-9036Gcikyfi [Mass/Vol]Protein [Mass/volume] in Serum or Plasma6.3-8.0[facility] John Medical Centererum or plasma anion gap determinationon 21-06-9124Mxion gap [Moles/Vol]Serum or plasma anion gap determinationHigh8-15[facility] HospitalCNPNon 52-31-0090OHLPTdobweEpiairsyp Clinic ClevelandBasophils Auto (Bld) [#/Vol]on 18-23-4885Fnwemvjkh (Bld) [#/Vol]Automated basophil count0.0-0.1FMercy Health Defiance HospitalBasophils/100 WBC Auto (Bld)on 92-99-6504Kaqduaidc/100 WBC (Bld)Automated basophil %0.2-2.0[facility] Eosinophils/100 WBC Auto (Bld)on 73-22-0324Jkhbyzmhzfu/100 WBC (Bld)Automated eosinophil %Low0.9-7.0[facility] HospitalErythrocyte distribution width Auto (RBC) [Ratio]on 24-85-0065Wsvuasqmhgf distribution width (RBC) [Ratio]Erythrocyte distribution width [Ratio] by Automated aosdrHboz28.0-15.0 [facility] HospitalEstimated glomerular filtration rate (GFR) non- Americanon 30-08-6111SMP/1.73 sq M.predicted among non-blacks MDRD (S/P/Bld) [Vol rate/Area]Estimated glomerular filtration rate (GFR) non- AmericanLow>=60 mL/min/1.73m 2FMercy Health Defiance HospitalGlobulin Calc (S) [Mass/Vol]on 34-04-8372Lfvjhulw (S) [Mass/Vol]Serum globulin measurement by calculation (mass/volume)[facility] HospitalHematocrit Auto (Bld) [Volume fraction]on 50-46-5081Bqcddjindm (Bld) [Volume fraction]Hematocrit [Volume Fraction] of Blood by Automated xkbdmSzz86.0-54.0[facility] HospitalHemoglobin [Mass/volume] in Bloodon 99-23-8393Yoavyrzlxc (Bld) [Mass/Vol]Hemoglobin [Mass/volume] in FsntiXzr68.0-18.0[facility] HospitalLaboratory - Chemistry and Chemistry - challengeon 08-31-2024 Potassium [Moles/Vol]3.4 mmol/LLow3.5-5.1FMercy Health Defiance Hospital Albumin [Mass/Vol]3.3 g/dLLow3.4-5.0[facility] HospitalALP [Catalytic activity/Vol]130 U/FThqs45-926TqygfcyjoAultman HospitalALT [Catalytic activity/Vol]13 U/AZsr78-55XjafpfdlhAultman HospitalAST [Catalytic activity/Vol]25 U/L77-95QvioasbhwAultman HospitalBilirubin [Mass/Vol]0.7 mg/dL0.2-1.0[facility] HospitalCalcium [Mass/Vol]9.0 mg/dL8.5-10.1FMercy Health Defiance HospitalChloride [Moles/Vol]101 mmol/L 98-107[facility] HospitalCO2 [Moles/Vol]34.5 mmol/LHigh21.0-32.0 [facility] HospitalCreatinine [Mass/Vol]1.68 mg/dLHigh0.70-1.30 [facility] HospitalGFR/1.73 sq M.predicted MDRD (S/P/Bld) [Vol rate/Area]49 mL/min/{1.73_m2}Low>=60 mL/min/1.73m 2FMercy Health Defiance HospitalGlucose [Mass/Vol]113 mg/rVGuwm84-203ItytrvcmkAultman Hospital Magnesium [Mass/Vol]2.2 mg/dL1.8-2.4FMercy Health Defiance HospitalProtein [Mass/Vol]7.7 g/dL6.4-8.2FMercy Health Lorain Hospitalodium [Moles/Vol]143 mmol/Z976-293FmiborzwcAultman HospitalUrea nitrogen [Mass/Vol]48.0 mg/dL High7.0-18.0[facility] HospitalUrea nitrogen/Creatinine [Mass ratio]28.6 mg/mgAultman HospitalLaboratory - Hematology and Cell countson 36-34-7782Scsmosau granulocytes/100 WBC (Bld)0.5 %0.0-0.5FMercy Health Defiance HospitalLeukocytes [#/volume] corrected for nucleated erythrocytes in Blood by Automated counon 62-33-0936CED corrected for nucl RBC Auto (Bld) [#/Vol]Leukocytes [#/volume] corrected for nucleated erythrocytes in Blood by Automated coun4.0-11.0[facility] HospitalLymphocytes Auto (Bld) [#/Vol]on 00-95-9634Ciewrmdvzxh (Bld) [#/Vol]Lymphocytes [#/volume] in Blood by Automated countLow1.2-3.8[facility] Lymphocytes/100 WBC Auto (Bld)on 91-21-8788Zshjcgyebbn/100 WBC (Bld) Lymphocytes/100 leukocytes in Blood by Automated taleqUpu78.5-60.0[facility] HospitalH Auto (RBC) [Entitic mass]on 16-25-8033WOI (RBC) [Entitic mass]MCH [Entitic mass] by Automated count25.9-34.0[facility] HospitalMCHC Auto (RBC) [Mass/Vol]on 13-86-5743WPYD (RBC) [Mass/Vol]MCHC [Mass/volume] by Automated count29.9-35.2FMercy Health Defiance HospitalMCV Auto (RBC) [Entitic vol]on 33-70-0411KWF (RBC) [Entitic vol]MCV [Entitic volume] by Automated xnqelLcdf16.0-94.0[facility] HospitalMonocytes Auto (Bld) [#/Vol]on 28-42-7965Yjnoprmom (Bld) [#/Vol]Automated blood monocyte count High0.3-0.8[facility] HospitalMonocytes/100 WBC Auto (Bld)on 13-09-9905Utztkdawf/100 WBC (Bld)Automated monocyte %High1.7-12.0[facility] HospitalNeutrophils Auto (Bld) [#/Vol]on 62-71-5663Njddicjlror (Bld) [#/Vol]Neutrophils [#/volume] in Blood by Automated count1.4-6.5FMercy Health Defiance HospitalNeutrophils/100 WBC Auto (Bld)on 08-31-2024 Neutrophils/100 WBC (Bld)Automated neutrophil %43.0-75.0[facility]man HospitalNo Panel Informationon 78-83-6723Prfpxiskrgs # (Auto)0.0 10 3/uL 0.0-0.7FMercy Health Defiance HospitalImmature Granulocyte # (Auto)0.03 10 3/uL0.00-0.03[facility] HospitalPlatelet mean volume Auto (Bld) [Entitic vol]on 49-77-5646Gbdztcar mean volume (Bld) [Entitic vol]Platelet mean volume [Entitic volume] in Blood by Automated count9.5-13.5FMercy Health Defiance HospitalPlatelets Auto (Bld) [#/Vol]on 69-92-0371Nsltjdsle (Bld) [#/Vol] Platelets [#/volume] in Blood by Automated lmvaq045-820AlkvxpjxhAultman HospitalRBC Auto (Bld) [#/Vol]on 32-44-1586BNV (Bld) [#/Vol]Erythrocytes [#/volume] in Blood by Automated countLow4.70-6.10[facility] John Medical Centererum or plasma albumin/globulin mass ratioon 06-81-5990Cotnazt/Globulin [Mass ratio]Serum or plasma albumin/globulin mass ratioUniversity Hospitals St. John Medical Centererum or plasma anion gap determinationon 57-96-4224Wvesk gap [Moles/Vol]Serum or plasma anion gap determinationAultman HospitalActivated partial thromboplastin time (aPTT) in platelet poor plasma by coagulation aon 60-20-1751fTPR Coag (PPP) [Time]Activated partial thromboplastin time (aPTT) in platelet poor plasma by coagulation a22.3-36.2FMercy Health Defiance HospitalBasophils Auto (Bld) [#/Vol]on 77-04-7497Svfxlxwyn (Bld) [#/Vol] Automated basophil count0.0-0.1FMercy Health Defiance HospitalBasophils/100 WBC Auto (Bld)on 50-99-2955Bazkwalqi/100 WBC (Bld)Automated basophil %0.2-2.0 [facility] HospitalEosinophils/100 WBC Auto (Bld)on 08-30-2024 Eosinophils/100 WBC (Bld)Automated eosinophil %Low0.9-7.0[facility] HospitalErythrocyte distribution width Auto (RBC) [Ratio]on 08-30-2024 Erythrocyte distribution width (RBC) [Ratio]Erythrocyte distribution width [Ratio] by Automated loomuYqet39.0-15.0[facility] Hematocrit Auto (Bld) [Volume fraction]on 02-60-6057Rslficurzz (Bld) [Volume fraction]Hematocrit [Volume Fraction] of Blood by Automated febsaBir77.0-54.0 [facility] HospitalHemoglobin [Mass/volume] in Bloodon 08-30-2024 Hemoglobin (Bld) [Mass/Vol]Hemoglobin [Mass/volume] in LcxoiUtz27.0-18.0 [facility] HospitalINR in Platelet poor plasma by Coagulation assayon 17-49-9812LXS Coag (PPP) [Relative time]INR in Platelet poor plasma by Coagulation assayAultman HospitalComment on above:DESIRED INR:2.0-3.0 CONDITIONS NOT LISTED BELOW2.5-3.5 FOR PROSTHETIC HEART VALVE REPLACEMENT2.5-3.5 RECURRENT THROMBOSISLaboratory - Chemistry and Chemistry - challengeon 00-78-8501Aqsacwokn Ql (U)NegativeNEGATIVEAultman HospitalGlucose (U) [Mass/Vol]NegativeNEGATIVEAultman Hospital Ketones Ql (U)NegativeNEGTrinity Health System East CampuspH (U)6.5 [pH] 5.0-9.0[facility] Centerpecific gravity (U) [Rel density] <=1.654Rhfotwlt9.005-1.025[facility] HospitalUrobilinogen Qn (U) 0.2 {Guido'U}/dL0.2-1.0[facility] HospitalNatriuretic peptide B (Bld) [Mass/Vol]239.0 pg/mL<=900.0[facility] Companyoratory - Hematology and Cell countson 38-73-1483Thalvomb granulocytes/100 WBC (Bld)0.5 % 0.0-0.5FMercy Health Defiance HospitalLaboratory - Microbiology and Antimicrobial susceptibilityon 38-40-4563DOCD-CoV-2 (COVID-19) RNA BRYN+probe Ql (Unsp spec)NegativeNEGATIVEAultman HospitalComment on above: This test has not [...] authorization is revoked sooner.Laboratory - Specimen informationon 19-23-6230Vuqdecsmap (U)CLEARCLEMercy Health West HospitalColor (U)LT. YELLOWYELLOWAultman HospitalLaboratory - Urinalysison 84-48-4793Upcbpatvo esterase Test strip Ql (U)NegativeNEGATIVE [facility] HospitalMucus Ql (Urine sed)NONE SEENNONE SEENAultman HospitalNitrite Ql (U)NegativeNEGATIVEAultman HospitalProtein Ql (U)NegativeNEG/TRACEAultman Hospital Leukocytes [#/volume] corrected for nucleated erythrocytes in Blood by Automated counon 11-50-3088OHN corrected for nucl RBC Auto (Bld) [#/Vol]Leukocytes [#/volume] corrected for nucleated erythrocytes in Blood by Automated coun 4.0-11.0[facility] HospitalLymphocytes Auto (Bld) [#/Vol]on 83-96-9907Xwdhvfafzjn (Bld) [#/Vol]Lymphocytes [#/volume] in Blood by Automated count1.2-3.8[facility] HospitalLymphocytes/100 WBC Auto (Bld)on 75-06-3695Kicptjenixq/100 WBC (Bld)Lymphocytes/100 leukocytes in Blood by Automated upwvaGkc48.5-60.0[facility] HospitalH Auto (RBC) [Entitic mass]on 49-70-8792KTI (RBC) [Entitic mass]MCH [Entitic mass] by Automated count25.9-34.0A[facility]man HospitalMCHC Auto (RBC) [Mass/Vol]on 85-39-3462KUNA (RBC) [Mass/Vol]MCHC [Mass/volume] by Automated count29.9-35.2FMercy Health Defiance HospitalMCV Auto (RBC) [Entitic vol]on 27-47-0240KDW (RBC) [Entitic vol]MCV [Entitic volume] by Automated countHigh 80.0-94.0[facility] HospitalMonocytes Auto (Bld) [#/Vol]on 42-94-2598Unrviuccy (Bld) [#/Vol]Automated blood monocyte countHigh0.3-0.8 [facility] HospitalMonocytes/100 WBC Auto (Bld)on 08-30-2024 Monocytes/100 WBC (Bld)Automated monocyte %1.7-12.0[facility] HospitalNeutrophils Auto (Bld) [#/Vol]on 85-09-6735Hxnlwcbaqwj (Bld) [#/Vol] Neutrophils [#/volume] in Blood by Automated count1.4-6.5FMercy Health Defiance HospitalNeutrophils/100 WBC Auto (Bld)on 17-33-1556Ragluzgtdod/100 WBC (Bld)Automated neutrophil %43.0-75.0[facility] HospitalNo Panel Informationon 66-28-5159Ofmgi BacteriaNONE SEEN #/HPFNONE SEENAultman HospitalUrine Culture ReflexedNOAultman HospitalUrine Occult BloodNegativeNEGATIVEAultman HospitalUrine Other Casts NONE SEEN #/LPFNONE SEENAultman HospitalUrine Other Crystals None Seen #/HPFNone SeenAultman HospitalUrine RBC0-2 #/HPF0-2 [facility] HospitalUrine Squamous Epithelial CellsNONE SEEN #/LPF NONE/RAREAultman HospitalUrine WBCNONE SEEN #/HPFNONE SEEN [facility] HospitalBedside Influenza Type A AntigenNegative [facility] HospitalComment on above:Negative for Flu A protein antigen. Infection due to Flu Acannot be ruled out. Flu A antigen in thesample may bebelow the detection limit of the test.Bedside Influenza Type B Antigen NegativeAultman HospitalComment on above:Negative for Flu B protein antigen. Infection due to Flu Bcannot be ruled out. Flu B antigen in the sample may bebelow the detection limit of the test.C-Reactive Protein, Quantitative4.85 mg/dLHigh<=0.50A[facility] HospitalEosinophils # (Auto)0.0 10 3/uL0.0-0.7FMercy Health Defiance HospitalImmature Granulocyte # (Auto)0.04 10 3/uLHigh0.00-0.03[facility] HospitalTroponin I High Jwxbzvcwmdu57.0 pg/mL4.0-76.1FMercy Health Defiance HospitalComment on above: CUT-OFF POINTS HAVE BEEN ESTABLISHED [...] volume [Entitic volume] in Blood by Automated count9.5-13.5FMercy Health Defiance HospitalPlatelets Auto (Bld) [#/Vol]on 44-34-1264Wjdqshole (Bld) [#/Vol]Platelets [#/volume] in Blood by Automated -284OwtvxvtnaAultman HospitalProthrombin time (PT) on 54-86-3233LW Coag (PPP) [Time]Prothrombin time (PT)High9.0-11.6FMercy Health Defiance HospitalRBC Auto (Bld) [#/Vol]on 92-99-2742IOP (Bld) [#/Vol] Erythrocytes [#/volume] in Blood by Automated countLow4.70-6.10[facility] HospitalComprehensive metabolic 2000 panelOrdered By: Solange Delgado on 83-51-3646Cdkgfkx [Mass/Vol]4 g/dL3.9 - 4.9 g/dLCleveland ClinicALP [Catalytic [...] mmol/L [facility] ClinicCreatinine [Mass/Vol]1.66 mg/dLHigh0.73 - 1.22 mg/dLClejoint township district memorial hospital ClinicGFR/1.73 sq M.predicted among non-blacks MDRD (S/P/Bld) [...] eGFRmay not accurately reflect actual GFR.Glucose [Mass/Vol]134 mg/wZDpmf83 - 99 mg/dL [facility] on above:[place] Diabetes Association (ADA) provides guidance for cutoff [...] Standards of Medical Care in Diabetes 2016, [place] Diabetes Association. Diabetes Care. 2016.39(Suppl 1). Interpretation and review of laboratory resultsAbnormalCleveland ClinicPotassium [Moles/Vol]2.7 mmol/LLow3.7 - 5.1 mmol/LCselect medical specialty hospital [facility] ClinicProtein [Mass/Vol]7.4 g/dL6.3 - 8.0 g/dLPatillas ClinicSodium [Moles/Vol]136 mmol/L136 - 144 mmol/L [facility]-FairhillUrea nitrogen [Mass/Vol]40 mg/dLHigh9 - 24 mg/dLFort Hamilton HospitalComprehensive metabolic 2000 panelon 64-08-0268Vlootuh [Mass/Vol]4.0 g/dLNormal3.9-4.9CCherrington Hospital on above:Order Comment: Specimen Type: BLOOD SPECIMENOrdering Facility: [facility] Address:[address] [place] [address]Pnrpphzbp By: #### 29010- 9, 98872-0 ####[facility] LABCLIA [id number] [place], [place] [address]UEY [Catalytic activity/Vol]126 U/LTgzv53-695 [facility] on above:Order Comment: Specimen Type: BLOOD SPECIMENOrdering Facility: [facility] Address:[address] [place] [address] 245[address]Pfrdsjdnu By: #### 09255-6, 86294-7 ####[facility] LABCLIA [id number] [place], [place] [address]NLK [Catalytic activity/Vol]10 U/ZVogmjn74-46HjjztekxnOhioHealth O'Bleness Hospital on above:Order Comment: Specimen Type: BLOOD SPECIMENOrdering Facility: [facility] Address:[address] [place], [place] [address]Performed By: #### 42886-6, 55859-0 ####[facility] LABCLIA [id number] [place], [place] [address]Qtnts gap [Moles/Vol]10 mmol/LNormal8-15 [facility] on above:Order Comment: Specimen Type: BLOOD SPECIMENOrdering Facility: [facility] Address:[address] [place], [place] [address]Performed By: #### 82104-1, 75817-5 ####[facility] LABCLIA [id number] [place], [place] [address]LFX [Catalytic activity/Vol]22 U/OEnwfdu83-30AxqdjgcdnOhioHealth O'Bleness Hospital on above:Order Comment: Specimen Type: BLOOD SPECIMENOrdering Facility: [facility] Address:[address] [place], [place] [address]Performed By: #### 91138-6, 32904-1 ####[facility] LABCLIA [id number] [place], [place] [address]Pjchspvoe [Mass/Vol]0.6 mg/dLNormal0.2-1.3 [facility] on above:Order Comment: Specimen Type: BLOOD SPECIMENOrdering Facility: [facility] Address:[address] [place], [place] [address]Performed By: #### 79254-9, 41844-0 ####[facility] LABCLIA [id number] [place], [place] [address]Mcwgeyc [Mass/Vol]8.9 mg/dLNormal8.5-10.2CCherrington Hospital on above: Order Comment: Specimen Type: BLOOD SPECIMENOrdering Facility: [facility] Address:[address] [place] [address]Bvjneqepp By: #### 12148- 9, 88136-1 ####[facility] LABCLIA [id number] [place], [place] [address]Kxfpcnyf [Moles/Vol]93 mmol/VQks78-416PhiumwjwvOhioHealth O'Bleness Hospital on above:Order Comment: Specimen Type: BLOOD SPECIMENOrdering Facility: [facility] Address:[address] [place], [place] [address]Performed By: #### 09896-5, 72231-6 ####[facility] LABCLIA [id number] [place], [place] [address]VP2 [Moles/Vol]33 mmol/ZVmik18-01VmcbsgdxiOhioHealth O'Bleness Hospital on above:Order Comment: Specimen Type: BLOOD SPECIMENOrdering Facility: [facility] Address:[address] [place], [place] [address]Performed By: #### 71285- 9, 40387-0 ####[facility] LABCLIA [id number] [place], [place] [address]Jbqqewegkf [Mass/Vol]1.66 mg/dLHigh0.73-1.22 [facility] on above:Order Comment: Specimen Type: BLOOD SPECIMENOrdering Facility: [facility] Address:[address] [place], [place] [address]Performed By: #### 36118-8, 76789-1 ####[facility] LABCLIA [id number] [place] [address] Creatinine and Glomerular filtration rate.predicted panel (S/P/Bld)43 mL/min/1.73m???Low>=60[facility] on above:Order Comment: Specimen Type: BLOOD SPECIMENOrdering Facility: [facility] Address:[address] [place], [place] [address]Result Comment: Estimated Glomerular Filtration Rate (eGFR) is calculated using the 2020 CKD-EPI creatinine equation. This equation utilizes serum creatinine, sex, and age as parameters. The creatinine assay has traceable calibration to isotope dilution-mass spectrometry. Refer to KDIGO guidelines for clinical interpretation. In patients with unstable renal function, e.g. those with acute kidney injury, the eGFR may not accurately reflect actual GFR.Performed By: #### 43774-1, 61582-5 ####[facility] LABCLIA [id number] [place], [place] [address]Smyursf [Mass/Vol]134 mg/wCWxvy04-15VouxyjpteOhioHealth O'Bleness Hospital on above:Order Comment: Specimen Type: BLOOD SPECIMENOrdering Facility: [facility] Address:[address] [place] [address]Lbglbn Comment: The [place] Diabetes Association (ADA) provides guidance for cutoff [...] Standards of Medical Care in Diabetes 2016, [place] Diabetes Association. Diabetes Care. 2016.39(Suppl 1).Performed By: #### 63965- 9, 59077-0 ####[facility] LABCLIA [id number] [place], [place] [address]Ryvgcvpkr [Moles/Vol]2.7 mmol/LLow3.7-5.1CCherrington Hospital on above:Order Comment: Specimen Type: BLOOD SPECIMENOrdering Facility: [facility] Address:[address] [place], [place] [address]Qezavzucd By: #### 11328-6, 98546-6 ####[facility] LABCLIA [id number] [place], [place] [address]Uyneold [Mass/Vol]7.4 g/dLNormal6.3-8.0[facility] on above:Order Comment: Specimen Type: BLOOD SPECIMENOrdering Facility: [facility] Address:[address] [place], [place] [address]Performed By: #### 33921- 9, 25281-4 ####[facility] LABCLIA [id number] [place], [place] [address]Jcsyho [Moles/Vol]136 mmol/NFfzune011-543AngwaiazbOhioHealth O'Bleness Hospital on above:Order Comment: Specimen Type: BLOOD SPECIMENOrdering Facility: [facility] Address:[address] [place], [place] [address]Performed By: #### 35055-6, 72804-2 ####[facility] LABCLIA [id number] [place], [place] [address]Kmel nitrogen [Mass/Vol]40 mg/dLHigh9-24[facility] on above: Order Comment: Specimen Type: BLOOD SPECIMENOrdering Facility: [facility] Address:[address] [place], [place] [address]Performed By: #### 06183- 9, 09543-7 ####[facility] LABCLIA [id number] [place], [place] [address]Dyddsdocpq - Chemistry and Chemistry - challengeon 97-88-7772Mfyncik [Mass/Vol]4.0 g/dL3.9-4.9A[facility] HospitalALP [Catalytic activity/Vol]126 U/FVbyz62-849ExtpkpmhhAultman HospitalALT [Catalytic activity/Vol]10 U/I93-00UakuzjissAultman HospitalAST [Catalytic activity/Vol]22 U/C52-01MkkhppuqaAultman HospitalBilirubin [Mass/Vol]0.6 mg/dL0.2-1.3FMercy Health Defiance HospitalCalcium [Mass/Vol]8.9 mg/dL8.5-10.2FMercy Health Defiance HospitalChloride [Moles/Vol]93 mmol/LLow 98-107A[facility] HospitalCO2 [Moles/Vol]33 mmol/OSyul76-17 [facility] HospitalCreatinine [Mass/Vol]1.66 mg/dLHigh0.73-1.22 [facility] HospitalGlucose [Mass/Vol]134 mg/uASdmg54-86BvpmejryfAultman HospitalComment on above:The [place] Diabetes Association (ADA) provides guidance for cutoff [...] diabetes.Reference: Standardsof Medical Care in Diabetes 2016, [place] Diabetes Association. Diabetes Care. 2016.39(Suppl 1).Magnesium [Mass/Vol]2.4 mg/dLHigh 1.7-2.3FMercy Health Defiance HospitalPotassium [Moles/Vol]2.7 mmol/LLow 3.7-5.1FMercy Health Lorain Hospitalodium [Moles/Vol]136 mmol/M010-482 [facility] HospitalTSH Qn2.030 m[IU]/L0.270-4.200[facility] HospitalUrea nitrogen [Mass/Vol]40 mg/dLHigh9-24[facility] HospitalMAGNESIUMon 46-95-6845Lyojstvlw [Mass/Vol]2.4 mg/dLHigh 1.7 - 2.3 mg/dLSelect Medical Specialty Hospital - Cleveland-FairhillMagnesium SerPl-mCncon 88-57-2992Nfdzuoqpx [Mass/Vol]2.4 mg/dLHigh1.7-2.3CKindred Hospital LimaComhenry ford hospital on above:Order Comment: Specimen Type: BLOOD SPECIMENOrdering Facility: [facility] Address:[address] [place], [place] [address]Ptmkzteox By: #### 48857- 9, 14093-7 ####[facility] LABCLIA [id number] [place], [place] [address]Itjdvvgih [Mass/Vol]on 17-26-4657Sfjovbtpvuovcl and review of laboratory resultsAbnormalCMedina Hospital Panel Informationon 26-49-6976Gjcxyugba GFR (CKD-EPI)43 mL/min/1.73m???Low>=60 [facility] HospitalComment on above:Estimated Glomerular Filtration Rate (eGFR) [...] actual GFR.Protein [Mass/volume] in Serum or Plasmaon 61-64-6886Gayoscf [Mass/Vol]Protein [Mass/volume] in Serum or Plasma6.3-8.[address] [facility] Medical Centererum or plasma anion gap determinationon 83-36-5426Zprxq gap [Moles/Vol]Serum or plasma anion gap determination8-15 [facility] HospitalTS SerPl-aCncon 12-99-7722FGF Qn2.030 m[IU]/L Normal0.270-4.200[facility] on above:Order Comment: Specimen Type: BLOOD SPECIMENOrdering Facility: [facility] Address:[address] [place], [place] [address]Performed By: #### 3016-3 ####[facility] LABCLIA [id number] [facility] [id number] Panel Informationon 08-27-2024 [facility] HealthcareComprehensive metabolic 2000 panelon 73-81-8988Ognxikj [Mass/Vol] 4.1 g/dLNormal3.9-4.9CCherrington Hospital on above:Order Comment: Specimen Type: BLOOD SPECIMENOrdering Facility: [facility] Address:[address] [place], [place] [address]Performed By: #### 60191-0, 3016-3, 33938-6 ####[facility] LABCLIA [id number] [address] [place] [address] [place] AMERICAALP [Catalytic activity/Vol]137 U/JNrwe77-941LzkpnadvsOhioHealth O'Bleness Hospital on above:Order Comment: Specimen Type: BLOOD SPECIMENOrdering Facility: [facility] Address:[address] [place], [place] [address]Performed By: #### 21951-9, 3016-3, 05168-8 ####[facility] LABCLIA [id number] [address], [facility] [place] AMERICAALT [Catalytic activity/Vol]17 U/ACcrzen53-37ZwhilelwoOhioHealth O'Bleness Hospital on above:Order Comment: Specimen Type: BLOOD SPECIMENOrdering Facility: [facility] Address:[address] [place], [place] [address]Performed By: #### 25083-1, 3016-3, 39815-9 ####[facility] LABCLIA [id number] [address], [facility] [place] AMERICAAnion gap [Moles/Vol]13 mmol/L Normal8-15[facility] on above:Order Comment: Specimen Type: BLOOD SPECIMENOrdering Facility: [facility] Address:[address] [place], [place] [address]Performed By: #### 99819-8, 3016-3, 18120-7 ####[facility] LABCLIA [id number] [address], [facility] [place] AMERICAAST [Catalytic activity/Vol]32 U/UDkwzom19-65PkvxzykowOhioHealth O'Bleness Hospital on above:Order Comment: Specimen Type: BLOOD SPECIMENOrdering Facility: [facility] Address:[address] [place], [place] [address]Performed By: #### 90348-9, 3016-3, 54056-6 ####[facility] LABCLIA [id number] [address] [place] [address] [place] AMERICABilirubin [Mass/Vol]0.7 mg/dL Normal0.2-1.3CCherrington Hospital on above:Order Comment: Specimen Type: BLOOD SPECIMENOrdering Facility: [facility] Address:[address] [place], [place] [address]Performed By: #### 06521-7, 301-3, 13661-3 ####[facility] LABCLIA [id number] AVENUEPROVIDENCE [address] JOSEPH MEDICAL CENTERK [place] [address] [place] AMERICACalcium [Mass/Vol]9.5 mg/dLNormal 8.5-10.2CCherrington Hospital on above:Order Comment: Specimen Type: BLOOD SPECIMENOrdering Facility: [facility] Address:[address] [place], [place] [address]Performed By: #### 98831-2, 3, 68791-2 ####[facility] LABCLIA [id number] [address] [place] AMERICAChloride [Moles/Vol]93 mmol/LLow 98-107[facility] on above:Order Comment: Specimen Type: BLOOD SPECIMENOrdering Facility: [facility] Address:[address] [place], [place] [address]Performed By: #### 68571-7, 3, 55484-4 ####[facility] LABCLIA [id number] [place] [address] [place] AMERICACO2 [Moles/Vol]31 mmol/YPged73-06 [facility] on above:Order Comment: Specimen Type: BLOOD SPECIMENOrdering Facility: [facility] Address:[address] [place], [place] [address]Performed By: #### 67228-5, 3, 89304-6 ####[facility] LABCLIA [id number] AVENUEPROVIDENCE ST[address] JOSEPH MEDICAL CENTERK [address] [address] [place] AMERICACreatinine [Mass/Vol]1.61 mg/dLHigh0.73-1.22 [facility] on above:Order Comment: Specimen Type: BLOOD SPECIMENOrdering Facility: [facility] Address:[address] [place], [place] [address]Ckqgveujb By: #### 38642-2, 3016-3, 00741-8 ####[facility] LABIA [id number] [address] [place] AMERICACreatinine and Glomerular filtration rate.predicted panel (S/P/Bld)45 mL/min/1.73m???Low>=60[facility] on above:Order Comment: Specimen Type: BLOOD SPECIMENOrdering Facility: [facility] Address:[address] [place] [address]Jjhkvx Comment: Estimated Glomerular Filtration Rate (eGFR) is [...] accurately reflect actual GFR. Performed By: #### 77749-9, 3016-3, 57827-9 ####[facility] LABIA [id number] [address] [place] AMERICAGlucose [Mass/Vol]99 mg/bFSbjgjd36-47CymsodtphOhioHealth O'Bleness Hospital on above:Order Comment: Specimen Type: BLOOD SPECIMENOrdering Facility: [facility] Address:[address] [place] [address]Iqgqux Comment: The [place] Diabetes Association (ADA) provides guidance for cutoff [...] Standards of Medical Care in Diabetes 2016, [place] Diabetes Association. Diabetes Care. 2016.39(Suppl 1).Performed By: #### 08559-2, 3015-3, 38206-1 ####[facility] LABCLIA [id number] VILLE [address] [place] AMERICAPotassium [Moles/Vol]2.9 mmol/LLow3.7-5.1CCherrington Hospital on above:Order Comment: Specimen Type: BLOOD SPECIMENOrdering Facility: [facility] Address:[address] [place], [place] [address]Performed By: #### 44186-4, 3015-3, 89462-6 ####[facility] LABIA [id number] VILLE [address] [place] AMERICAProtein [Mass/Vol]8.0 g/dLNormal6.3-8.0[facility] on above:Order Comment: Specimen Type: BLOOD SPECIMENOrdering Facility: [facility] Address:[address] [place], [place] [address]Performed By: #### 29143-4, 3, 16445-7 ####[facility] LABIA [id number] VILLE [address] [place] AMERICASodium [Moles/Vol]137 mmol/NSbvhdb859-255FnruiagxnOhioHealth O'Bleness Hospital on above:Order Comment: Specimen Type: BLOOD SPECIMENOrdering Facility: [facility] Address:[address] [place], [place] [address]Performed By: #### 41173-3, 3, 99103-6 ####[facility] LABIA [id number] [address] [place] AMERICAUrea nitrogen [Mass/Vol]30 mg/dLHigh9-24[facility] on above:Order Comment: Specimen Type: BLOOD SPECIMENOrdering Facility: [facility] Address:[address] [place], [place] [address]Performed By: #### 10876-7, 3016-3, 25487-8 ####[facility] LABCLIA [id number] [address] [place] AMERICALaboratory - Chemistry and Chemistry - challengeon 21-69-7161Pqubpje [Mass/Vol]4.1 g/dL3.9-4.9[facility] HospitalALP [Catalytic activity/Vol]137 U/IZltl72-564MhrbhtywlAultman HospitalALT [Catalytic activity/Vol]17 U/C82-84KrewgzganAultman HospitalAST [Catalytic activity/Vol]32 U/D65-01CgtjikcboAultman HospitalBilirubin [Mass/Vol]0.7 mg/dL0.2-1.3FMercy Health Defiance HospitalCalcium [Mass/Vol]9.5 mg/dL8.5-10.2FMercy Health Defiance HospitalChloride [Moles/Vol]93 mmol/LLow 98-107[facility] HospitalCO2 [Moles/Vol]31 mmol/LTnpr02-63 [facility] HospitalCreatinine [Mass/Vol]1.61 mg/dLHigh0.73-1.22 [facility] HospitalGlucose [Mass/Vol]99 mg/tH51-57IbcdvirywAultman HospitalComment on above:The [place] Diabetes Association (ADA) provides guidance for cutoff [...] diabetes.Reference: Standardsof Medical Care in Diabetes 2016, [place] Diabetes Association. Diabetes Care. 2016.39(Suppl 1).Magnesium [Mass/Vol]2.4 mg/dLHigh 1.7-2.3FMercy Health Defiance HospitalPotassium [Moles/Vol]2.9 mmol/LLow 3.7-5.1FMercy Health Lorain Hospitalodium [Moles/Vol]137 mmol/A434-605 [facility] HospitalTSH Qn2.980 m[IU]/L0.270-4.200[facility] HospitalUrea nitrogen [Mass/Vol]30 mg/dLHigh9-24[facility] HospitalMagnesium SerPl-mCncon 68-41-3093Vnetbtqhu [Mass/Vol]2.4 mg/dLHigh1.7-2.3CCherrington Hospital on above:Order Comment: Specimen Type: BLOOD SPECIMENOrdering Facility: [facility] Address:[address] [place], [place] [address]N[place], [place] [address]Performed By: #### 40294-2, 3016-3, 93863-3 ####[facility] LABCLIA [id number] [address] Panel Informationon 67-55-3440Bmzallfqw GFR (CKD-EPI)45 mL/min/1.73m???Low>=60[facility] HospitalComhenry ford hospital on above:Estimated Glomerular Filtration Rate (eGFR) [...] GFR. Protein [Mass/volume] in Serum or Plasmaon 97-30-0841Pravmtv [Mass/Vol]Protein [Mass/volume] in Serum or Plasma6.3-8.0[facility] Centererum or plasma anion gap determinationon 02-90-7816Wxual gap [Moles/Vol]Serum or plasma anion gap determination8-15[facility] SerPl-aCncon 77-31-4737KUI Qn2.980 m[IU]/LNormal0.270-4.200[facility] on above:Order Comment: Specimen Type: BLOOD SPECIMENOrdering Facility: [facility] Address:[address] [place] [address] Performed By: #### [id number], 3016-3, 43677-8 ####[facility] LABCLIA [id number] [place] [id number] [place] OF AMERICACNPNon [id number] Clinic ClevelandCNOVon 08-18-2024 CNOVNormalCKindred Hospital LimaOptical coherence tomography study reporton 65-67-4648ZPQNBeloit Memorial HospitalNo Panel Informationon 08-13-2024 IMPRESSION: Small, layering right-sided pleural effusion, stable in size from prior study of 07/20/2024. 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: PSCB Transcribe Date/Time: Aug 13 2024 10:27A Dictated by : NOLBERTO SMITH MD This examination was interpreted and the report reviewed and electronically signed by: NOLBERTO SMITH MD on Aug 13 2024 10:32AM EST DIVISION OF RADIOLOGYRadiology Study observation (narrative)[facility] InformationOrdered By: Ccf Provider on 51-24-3781Kjgpbrpvl ClinicXR CHEST 1V DECUBITUS RTon 18-29-8332WV CHEST 1V DECUBITUS RTNormProMedica Defiance Regional HospitalXR CHEST 2V FRONTAL/LATon 19-16-3923BO CHEST 2V FRONTAL/LATNormal [facility] SystemXR Chest AP right lateral-decubituson 08-13-2024* * *Final [...] spine is again noted. DIVISION OF RADIOLOGYProvider, [facility] [place] - 08/13/2024 * * *Final Report* * [...] in size from prior study of 07/20/2024. 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 Transcribe Date/Time: Aug 13 2024 10:27A Dictated by : NOLBERTO SMITH MD This examination was interpreted and the report reviewed and electronically signed by: NOLBERTO SMITH MD on Aug 13 2024 10:32AM EST [facility] Chest PA and Lateralon 08-13-2024* * *Final [...] spine is again noted. DIVISION OF RADIOLOGYProvider, [facility] [place] - 08/13/2024 * * *Final Report* * [...] in size from prior study of 07/20/2024. 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: ALONSO Transcribe Date/Time: Aug 13 2024 10:27A Dictated by : NOLBERTO SMITH MD This examination was interpreted and the report reviewed and electronically signed by: NOLBERTO SMITH MD on Aug 13 2024 10:32AM EST [facility]-FairhillCNPNon 38-19-5843XKTORpmkigTeilhdmua Clinic ClevelandOptical coherence tomography study reporton 20-26-1257Kqqllnodn Study observation (narrative)NOMS HealthcareCNPNon 35-78-4820CUVYWpjhcpSaihrjcfm Clinic [place] CNPNon 94-22-3008JXJBUdchrqKwuuwtrun Clinic ClevelandCNPNon 93-92-8873WDAVXispln [facility]25([place])D3 SerPl-mCncon 510825-mjmdstavxmfsrp D3 [Mass/Vol]49.2 ng/vQGrppbk91.0-80.0[facility] on above: Order Comment: Specimen Type: BLOOD SPECIMENOrdering Facility: [facility] Address:[address] [place], [place] [address]Result Comment: Classification of 25 [place] Vitamin D status:Deficiency/Insufficiency: < or = 30 ng/ml.Sufficiency/Optimal Levels: 31-80 ng/mLToxicity: > 100 ng/mL.Test performed by chemiluminescent immunoassay.Performed By: #### 1989-3 ####[facility] LABCLIA [id number] [place] [address] [place] STATES AMERICABathe medical center metabolic 2000 panelon 82-61-8602Imwmw gap [Moles/Vol]7 mmol/LLow8-15[facility] on above:Order Comment: Specimen Type: BLOOD SPECIMENOrdering Facility: [facility] Address:[address] [place] [address] Performed By: #### 58895-5, 43237-7 ####[facility] LABCLIA [id number] [place], [place] [address]Ojylxuz [Mass/Vol]8.9 mg/dLNormal8.5-10.2CCherrington Hospital on above:Order Comment: Specimen Type: BLOOD SPECIMENOrdering Facility: [facility] Address:[address] [place], [place] [address]Performed By: #### 84909-4, 93710-5 ####[facility] LABCLIA [id number] [place], [place] [address]Kpgiocps [Moles/Vol]105 mmol/YQdrmsl69-045FwswcfvltOhioHealth O'Bleness Hospital on above:Order Comment: Specimen Type: BLOOD SPECIMENOrdering Facility: [facility] Address:[address] [place], [place] [address]Performed By: #### 87749-2, 08094-9 ####[facility] LABCLIA [id number] [place], [place] [address]EG4 [Moles/Vol]27 mmol/ORbcbrl74-54EpqekdatiOhioHealth O'Bleness Hospital on above:Order Comment: Specimen Type: BLOOD SPECIMENOrdering Facility: [facility] Address:[address] [place], [place] [address]Performed By: #### 46966- 9, 09920-4 ####[facility] LABCLIA [id number] [place], [place] [address]Eoyrzuqakl [Mass/Vol]1.25 mg/dLHigh0.73-1.22 [facility] on above:Order Comment: Specimen Type: BLOOD SPECIMENOrdering Facility: [facility] Address:[address] [place], [place] [address]Performed By: #### 23338-3, 66715-5 ####[facility] LABCLIA [id number] [place] [address] Creatinine and Glomerular filtration rate.predicted panel (S/P/Bld)61 mL/min/1.73m???Normal>=60[facility] on above:Order Comment: Specimen Type: BLOOD SPECIMENOrdering Facility: [facility] Address:[address] [place], [place] [address]Result Comment: Estimated Glomerular Filtration Rate (eGFR) is [...] not accurately reflect actual GFR.Performed By: #### 52798-0, 17808-5 ####[facility] LABCLIA [id number] [place], [place] [address]Vjyafbs [Mass/Vol]141 mg/yHAfov30-50NsoiohhfbOhioHealth O'Bleness Hospital on above:Order Comment: Specimen Type: BLOOD SPECIMENOrdering Facility: [facility] Address:[address] [place], [place] [address]Result Comment: The [place] Diabetes Association (ADA) provides guidance for cutoff [...] Standards of Medical Care in Diabetes 2016, [place] Diabetes Association. Diabetes Care. 2016.39(Suppl 1).Performed By: #### 97009- 9, 19007-2 ####[facility] LABCLIA [id number] [place], [place] [address]Kktfkgkyi [Moles/Vol]4.0 mmol/LNormal3.7-5.1 [facility] on above:Order Comment: Specimen Type: BLOOD SPECIMENOrdering Facility: [facility] Address:[address] [place] [address]Cipfdmaoz By: #### 43009-5, 70040-8 ####[facility] LABCLIA [id number] [place], [place] [address]Xdmiga [Moles/Vol]139 mmol/AHejekp167-526QkdoevevnOhioHealth O'Bleness Hospital on above: Order Comment: Specimen Type: BLOOD SPECIMENOrdering Facility: [facility] Address:[address] [place], [place] [address]Performed By: #### 29459- 9, 29501-7 ####[facility] LABCLIA [id number] [place], [place] [address]Nvyo nitrogen [Mass/Vol]27 mg/dLHigh9-24[facility] on above:Order Comment: Specimen Type: BLOOD SPECIMENOrdering Facility: [facility] Address:[address] [place], [place] [address]Performed By: #### 64059-2, 77406-1 ####[facility] LABCLIA [id number] [place], [place] [address]EJB panel Auto (Bld)on 26-30-0521Aegkmhlsczd distribution width (RBC) [Ratio]16.2 % High11.5 - 15.0 %[facility]FairhillHematocrit (Bld) [Volume fraction]34.6 %Low39.0 - 51.0 %[facility]-FairhillHemoglobin (Bld) [Mass/Vol]11.4 g/dLLow13.0 - 17.0 g/dL [facility]-FairhillInterpretation and review of laboratory resultsAbnormalCCleveland Clinic Akron GeneralH (RBC) [Entitic mass]31.3 pg26.0 - 34.0 pgCCleveland Clinic Akron GeneralHC (RBC) [Mass/Vol]32.9 g/dL30.5 - 36.0 g/dLProMedica Toledo HospitalV (RBC) [Entitic vol]95.1 fL80.0 - 100.0 fLCMiami Valley HospitalNucleated RBC (Bld) [#/Vol]NINFCMiami Valley Hospital Platelet mean volume (Bld) [Entitic vol]10.1 fL9.0 - 12.7 [facility] Platelets (Bld) [#/Vol]222 10*3/uLSelect Medical Specialty Hospital - Cleveland-FairhillRBC (Bld) [#/Vol]3.64 10*6/uL Low4.20 - 6.00 m/St. Charles HospitalWBC (Bld) [#/Vol]7.62 10*3/uLFort Hamilton HospitalErythrocyte distribution width (RBC) [Ratio]16.2 %High11.5-15.0 [facility] on above:Order Comment: Specimen Type: BLOOD SPECIMENOrdering Facility: [facility] Address:[address] [place], [place] [address]Performed By: #### 59321-1 ####[facility] LABIA [id number] [place], [place] [address]Vhhmpgxeud (Bld) [Volume fraction]34.6 %Low39.0-51.0[facility] on above: Order Comment: Specimen Type: BLOOD SPECIMENOrdering Facility: [facility] Address:[address] [place], [place] [address]Performed By: #### 03511- 2 ####[facility] LABIA [id number] [place], [place] [address]Nnsomhkzgu (Bld) [Mass/Vol]11.4 g/dLLow13.0-17.0[facility] on above:Order Comment: Specimen Type: BLOOD SPECIMENOrdering Facility: [facility] Address:[address] [place], [place] [address]Performed By: #### 49942-3 ####[facility] LABIA [id number] [place], [place] [address]SKJ (RBC) [Entitic mass]31.3 vhWmwwen05.0-34.0[facility] on above: Order Comment: Specimen Type: BLOOD SPECIMENOrdering Facility: [facility] Address:[address] [place], [place] [address]Performed By: #### 01740- 2 ####[facility] LABIA [id number] [place], [place] [address]TYXU (RBC) [Mass/Vol]32.9 g/hOUuzdni60.5-36.0[facility] on above:Order Comment: Specimen Type: BLOOD SPECIMENOrdering Facility: [facility] Address:[address] [place], [place] [address]Performed By: #### 98027-1 ####[facility] LABCLIA [id number] [place], [place] [address]RRD (RBC) [Entitic vol]95.1 yMWxcafd11.0-100.0[facility] on above: Order Comment: Specimen Type: BLOOD SPECIMENOrdering Facility: [facility] Address:[address] [place], [place] [address]Performed By: #### 23174- 2 ####[facility] LABCLIA [id number] [place], [place] [address]Oujokgdop RBC (Bld) [#/Vol]10*3/uLNormal<0.01[facility] on above:Order Comment: Specimen Type: BLOOD SPECIMENOrdering Facility: [facility] Address:[address] [place], [place] [address]Performed By: #### 19260-7 ####[facility] LABCLIA [id number] [place], [place] [address]Vooqycgw mean volume (Bld) [Entitic vol]10.1 fLNormal9.0-12.7CCherrington Hospital on above:Order Comment: Specimen Type: BLOOD SPECIMENOrdering Facility: [facility] Address:[address] [place] [address] Performed By: #### 45299-9 ####[facility] LABCLIA [id number] [place], [place] [address]Bxuqkzbqg (Bld) [#/Vol]222 10*3/aLPfllau175-722EksmobuutOhioHealth O'Bleness Hospital on above:Order Comment: Specimen Type: BLOOD SPECIMENOrdering Facility: [facility] Address:[address] [place], [place] [address]Performed By: #### 21767-8 ####[facility] LABCLIA [id number] [place], [place] [address]TMN (Bld) [#/Vol]3.64 10*6/uLLow4.20-6.00[facility] on above:Order Comment: Specimen Type: BLOOD SPECIMENOrdering Facility: [facility] Address:[address] [place], [place] [address]Performed By: #### 98167-6 ####[facility] LABCLIA [id number] [place], [place] [address]YYQ (Bld) [#/Vol]7.62 10*3/uL Normal3.70-11.00[facility] on above:Order Comment: Specimen Type: BLOOD SPECIMENOrdering Facility: [facility] Address:[address] [place], [place] [address]Performed By: #### 72088-3 ####[facility] LABCLIA [id number] [place], [place] [address]Byqbly SerPl-mCncon 46-47-4424Xjloivqx [Mass/Vol]11.1 ug/dLNormal4.8-19.5CCherrington Hospital on above:Order Comment: Specimen Type: BLOOD SPECIMENOrdering Facility: [facility] Address:[address] [place], [place] [address]Result Comment: Provided reference range is from 6-10 AM sample collection time.Cortisol Reference Range: 6-10 AM = 4.8-19.5 ug/dL, 4-8 PM = 2.5-11.9 ug/dLPerformed By: #### 2143-6, 2132-9 ####[facility] LABCLIA [id number] [place] [address] [address] [place] OF AMERICAErythrocyte distribution width Auto (RBC) [Ratio]on 79-43-0632Ukllxuxnqro distribution width (RBC) [Ratio] Erythrocyte distribution width [Ratio] by Automated agtcjHxgu27.5-15.0Aultman HospitalHematocrit Auto (Bld) [Volume fraction]on 07-29-2024 Hematocrit (Bld) [Volume fraction]Hematocrit [Volume Fraction] of Blood by Automated asiemYcu07.0-51.0[facility] HospitalHemoglobin [Mass/volume] in Bloodon 86-79-7087Gslrlxwosq (Bld) [Mass/Vol]Hemoglobin [Mass/volume] in MmvnwApq33.0-17.0[facility] HospitalLaboratory - Chemistry and Chemistry - challengeon 25-06-3122Baekylk [Mass/Vol]8.9 mg/dL 8.5-10.2FMercy Health Defiance HospitalChloride [Moles/Vol]105 mmol/L98-107 [facility] HospitalCO2 [Moles/Vol]27 mmol/N79-31UboahxtecAultman HospitalCobalamin (Vitamin B12) [Mass/Vol]729 pg/eX566-9707GcmevvonuAultman HospitalCreatinine [Mass/Vol]1.25 mg/dLHigh0.73-1.22[facility] HospitalGlucose [Mass/Vol]141 mg/uWGbeo93-09YoywkxdtiAultman HospitalComment on above:The [place] Diabetes Association (ADA) provides guidance for cutoff [...] diabetes.Reference: Standardsof Medical Care in Diabetes 2016, [place] Diabetes Association. Diabetes Care. 2016.39(Suppl 1).Magnesium [Mass/Vol]2.0 mg/dL 1.7-2.3FMercy Health Defiance HospitalPotassium [Moles/Vol]4.0 mmol/L3.7-5.[address] [facility] Medical Centerodium [Moles/Vol]139 mmol/X662-672LurzbfqjjAultman HospitalUrea nitrogen [Mass/Vol]27 mg/dLHigh9-24[facility] HospitalLeukocytes [#/volume] corrected for nucleated erythrocytes in Blood by Automated counon 36-28-8213EAD corrected for nucl RBC Auto (Bld) [#/Vol]Leukocytes [#/volume] corrected for nucleated erythrocytes in Blood by Automated coun3.70-11.00[facility] HospitalH Auto (RBC) [Entitic mass]on 36-23-3198XOM (RBC) [Entitic mass]MCH [Entitic mass] by Automated count26.0-34.0[facility] HospitalMCHC Auto (RBC) [Mass/Vol]on 95-57-1976IHDS (RBC) [Mass/Vol]MCHC [Mass/volume] by Automated count30.5-36.0[facility] HospitalMCV Auto (RBC) [Entitic vol]on 75-82-3114RFX (RBC) [Entitic vol]MCV [Entitic volume] by Automated count 80.0-100.0[facility] HospitalMagnesium SerPl-mCncon 07-29-2024 Magnesium [Mass/Vol]2.0 mg/dLNormal1.7-2.3CKindred Hospital LimaComment on above:Order Comment: Specimen Type: BLOOD SPECIMENOrdering Facility: [facility] Address:[address] [place], [place] [address]Performed By: #### 06570-5, 01165-4 ####[facility] LABCLIA [id number] [place], [place] [address]Th Panel Informationon 05-17-8997Uqhmyhkle GFR (CKD-EPI)61 mL/min/1.73m???>=60[facility]ult[facility] HospitalComment on above:Estimated Glomerular Filtration Rate (eGFR) [...] reflect actual GFR.Nucleated RBC Auto (Bld) [#/Vol]on 40-68-4094Fjnvpqxrw RBC (Bld) [#/Vol]Nucleated erythrocytes [#/volume] in Blood by Automated count<0.01[facility] Platelet mean volume Auto (Bld) [Entitic vol]on 13-29-8026Jcafphne mean volume (Bld) [Entitic vol]Platelet mean volume [Entitic volume] in Blood by Automated count9.0-12.7FMercy Health Defiance HospitalPlatelets Auto (Bld) [#/Vol]on 51-99-0948Mejcqwwuz (Bld) [#/Vol]Platelets [#/volume] in Blood by Automated wxuww956-589OrmfwyoxqAultman HospitalRBC Auto (Bld) [#/Vol]on 07-29-2024 RBC (Bld) [#/Vol]Erythrocytes [#/volume] in Blood by Automated countLow4.20-6.[address] [facility] Medical Centererum or plasma anion gap determinationon 09-20-2663Rbeqf gap [Moles/Vol]Serum or plasma anion gap determinationLow8-[address] [facility] Medical Centererum or plasma calcidiol measurement (mass/volume)on 410489-raxagkbwegtslh D3 [Mass/Vol]Serum or plasma calcidiol measurement (mass/volume)31.0-80.0[facility] Comment on above:Classification of 25 [place] Vitamin D status: Deficiency/Insufficiency: < or = 30 ng/ml.Sufficiency/Optimal Levels: 31-80 ng/mLToxicity: > 100 ng/mL. Test performed by chemiluminescent immunoassay.Vit B12 SerPl-mCncon 01-51-8134Fekyfgyba (Vitamin B12) [Mass/Vol]729 pg/mLNormal 232-1245[facility] [facility] Hospital - GreensboroComment on above:Order Comment: Specimen Type: BLOOD SPECIMENOrdering Facility: [facility] Address:[address] [place], [place] [address]Performed By: #### 2143-6, 2132-9 ####[facility] LABCLIA [id number] [place] [address] [place] OF AMERICAUS Chest limitedon 70-87-2797Frmshbcau Clinic ALBUMINon 37-31-3536Kozblgi [Mass/Vol]3.9 g/dL3.9 - 4.9 g/dLSelect Medical Specialty Hospital - [place]-[facility]hill Albumin (Body fld) [Mass/Vol]on 59-21-7790Ilccd Nom (Body fld)Pleural Cavity, RightNormalCleveland Clinic ClevelandComment on above:Order Comment: Specimen Type: SPECIMEN FROM PLEURA OBTAINED BY THORACENTESISOrdering Facility: [facility] Address: [address] [place], [place] [address]Result Comment: recurrent pleual effusion on rightPerformed By: #### 2529-6, 2881-1, 1747-5 ####[facility] LABCLIA [id number] [place] [address] [place] AMERICAAlbumin Fld-mCncon 07-20-2024 Albumin (Body fld) [Mass/Vol]1.4 g/dLNormalSee CommentMount Carmel Health System Comment on above:Order Comment: Specimen Type: SPECIMEN FROM PLEURA OBTAINED BY THORACENTESISOrdering Facility: [facility] Address: [address] [place] [address] Comment: Body Fluid Albumin may be used [...] document C49A. RAJEEV Bui: Clinical Laboratory Standards [place]: 2007.2. Dionicio SERAN. Serum to ascites albumin gradient. UpToDate. 2015. Accessed on September 28, 2015.Performed By: #### 2529-6, 2881-1, 1747-5 ####[facility] LABCLIA [id number] [place] [address] [place] AMERICAAlbumin SerPl-mCncon 07-20-2024 Albumin [Mass/Vol]3.9 g/dLNormal3.9-4.9CCherrington Hospital on above:Order Comment: Specimen Type: BLOOD SPECIMENOrdering Facility: [facility] Address:[address] [place], [place] [address]Performed By: #### 1751-7, 2885-2 ####[facility] LABCLIA [id number] UNITED HOSPITALNiecy AVENUEDESK [id number] [place] [address] [place] AMERICACNOVon 91-98-6033LTQX NormalMount Carmel Health SystemLACTATE DEHYDROGENASEon 80-07-9812IOG [Catalytic activity/Vol]293 U/MUoeq164 - 225 U/LCleveland ClinicComment on above:Hemolysis present. The origin of the hemolysis, in vitro versus an in vivo hemolytic process, cannot be distinguished via this assay alone. In vitro hemolysis may lead to non-physiological (spurious)elevation in lactate dehydrogenase (LDH) results. The result should be interpreted in context of the clinical setting and other test results. Suggest reorder as clinically indicated. LDH Fld-cCncon 77-62-1510VUP (Body fld) [Catalytic activity/Vol]167 U/LNormalSee CommentMount Carmel Health SystemComhenry ford hospital on above:Order Comment: Specimen Type: SPECIMEN FROM PLEURA OBTAINED BY THORACENTESISOrdering Facility: [facility] Address: [address] [place], [place] [address]Result Comment: Pleural fluids: Pleural fluid lactate dehydrogenase [...] document C49A. RAJEEV Bui: Clinical Laboratory Standards [place]: 2007.Reference: 2. Rafael STARK, Fei Doyle. Body [...] 533. Performed By: #### 2529-6, 2881-1, 1747-5 ####[facility] LABCLIA [id number] [facility] [id number] [place], [place] [address] [facility] SerPl-cCncon 37-92-6585RGY [Catalytic activity/Vol]293 U/NZeli292-366 [facility] Health SystemComhenry ford hospital on above:Order Comment: Specimen Type: BLOOD SPECIMENOrdering Facility: [facility] Address:[address] [place], [place] [address]Result Comment: Hemolysis present. The origin of the hemolysis, in vitro versus an in vivo hemolytic process, cannot be distinguished via this assay alone. In vitro hemolysis may lead to non-physiological (spurious) elevation in lactate dehydrogenase (LDH) results. Theresult should be interpreted in context of the clinical setting and other test results. Suggest reorder as clinically indicated.Performed By: #### 2532-0 ####[facility] LABIA [id number] [place] [id number] [place] [facility] CENTERLD [Catalytic activity/Vol]on 79-40-7232Rlsvlemwtqixlh and review of laboratory resultsAbnormalCUC Medical Center Laboratory - Chemistry and Chemistry - challengeon 05-46-5651Yespfvn [Mass/Vol] 3.9 g/dL3.9-4.9Aultman HospitalLDH [Catalytic activity/Vol]293 U/XUzyr736-702CtoxkxcnxAultman HospitalComment on above:Hemolysis present. The origin of the hemolysis, in vitro versus an in vivo hemolytic process, cannot be distinguished via this assay alone. In vitro hemolysis may lead to non-physiological (spurious)elevation in lactate dehydrogenase (LDH) results. The result should be interpreted in context of the clinical setting and other test results. Suggest reorder as clinically indicated.No Panel Information on 43-86-0887Egqpdhlqedblhc and review of laboratory resultsNoMercy Health Willard HospitalPROTEIN, TOTALon 92-81-4194Mmivcao [Mass/Vol]7.6 g/dL6.3 - 8.0 g/dLSelect Medical Specialty Hospital - Cleveland-FairhillProt Fld-mCncon 13-85-4481Txvttbo (Body fld) [Mass/Vol] 2.2 g/dLNormalSee CommentOhioHealth O'Bleness Hospital on above:Order Comment: Specimen Type: SPECIMEN FROM PLEURA OBTAINED BY THORACENTESISOrdering Facility: [facility] Address: [address] [place], [place] [address]Result Comment: Serous fluids: Effusions are the accumulation [...] document C49A. Hao PA: Clinical Laboratory Standards [place]: 2007.Performed By: #### 2529-6, 2881-1, 1747-5 ####[facility] LABCLIA [id number] [place] [address] [place] AMERICAProt SerPl-mCncon 07-20-2024 Protein [Mass/Vol]7.6 g/dLNormal6.3-8.0[facility] on above:Order Comment: Specimen Type: BLOOD SPECIMENOrdering Facility: [facility] Address:[address] [place] [id number] By: #### 1751-7, 2885-2 ####[facility] LABIA [id number] [place] [address] [place] AMERICAProtein [Mass/volume] in Serum or Plasmaon 72-60-9616Azusumf [Mass/Vol]Protein [Mass/volume] in Serum or Plasma6.3-8.0Aultman HospitalUS Chest limitedon 07-20-2024 Radiology Study observation (narrative)[facility]-FairhillXR CHEST 2V FRONTAL/LATon 47-88-9200GP CHEST 2V FRONTAL/LATNormalCKindred Hospital LimaXR Chest PA and Lateralon 25-99-6499AAXXUFJMGR: Decreased size of small right pleural effusion. 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: ALONSO Transcribe Date/Time: Jul 20 2024 12:41P Dictated by : PANCHO CANALES MD This examination was interpreted and the report reviewed and electronically signed by: ANALY ALONSO MD on Jul 20 2024 1:49PM [facility] DIVISION OF RADIOLOGY* * *Final Report* [...] within the thoracic spine. DIVISION OF RADIOLOGYProvider, [facility] [place] - 07/20/2024 * * *Final Report* * [...] Decreased size of small right pleural effusion. 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: ALONSO Transcribe Date/Time: Jul 20 2024 12:41P Dictated by : PANCHO CANALES MD This examination was interpreted and the report reviewed and electronically signed by: ANALY ALONSO MD on Jul 20 2024 1:49PM EST [facility]-FairhillRadiology Study observation (narrative)[facility] Chest PA and LateralOrdered By: Ccf Provider on 05-79-8552Kudjusxwd ClinicCNPNon 55-11-0809YGEEYprymvIuepmgdya Clinic ClevelandCNPNon 41-17-1333KCEGWnbcyp [facility] Health SystemBODY FLUID CELL COUNTon 43-04-9087Ancerbd (Unsp spec) ClearNormalClearOhioHealth O'Bleness Hospital on above:Order Comment: Specimen Type: SPECIMEN FROM PLEURA OBTAINED BY THORACENTESISOrdering Facility: [facility] Address: [address] [place] [address] Performed By: #### CCBF, [id number] ####[facility] LABCLIA [id number] [place] [address] [place] Color (Body fld)YellowNormalYellowOhioHealth O'[facility] on above: Order Comment: Specimen Type: SPECIMEN FROM PLEURA OBTAINED BY THORACENTESISOrdering Facility: [facility] Address: [address] [place], [place] [address]Performed By: #### CCBF, [id number] ####[facility] LABCLIA [id number] [place] [address] [place] AMERICARBC Manual cnt (Body fld) [#/Vol]<2000Normal<2000 [facility] on above:Order Comment: Specimen Type: SPECIMEN FROM PLEURA OBTAINED BY THORACENTESISOrdering Facility: [facility] Address: [address] [place], [place] [address]Performed By: #### CCBF, [id number] ####[facility] [facility] LABCLIA [id number] [place] [address] [place] OF AMERICASpecimen source Nom (Body fld)Pleural Cavity, RightNoRegency Hospital Company on above:Order Comment: Specimen Type: SPECIMEN FROM PLEURA OBTAINED BY THORACENTESISOrdering Facility: [facility] Address: [address] [place], [place] [address]Performed By: #### CCDIONICIO, [id number] ####[facility] LABCLIA [id number] [place] [address] [place] OF AMERICAWBC Manual cnt (Body fld) [#/Vol]408 /uLNormal<1000 [facility] on above:Order Comment: Specimen Type: SPECIMEN FROM PLEURA OBTAINED BY THORACENTESISOrdering Facility: [facility] Address: [address] [place], [place] [address]Performed By: #### CCDIONICIO, [id number] ####[facility] LABCLIA [id number] [place] [address] [place] OF AMERICACNOVon 97-26-5353SYXKIoqaqzDpdoialhsSelect Medical [facility] Rehabilitation Hospital - DublinFLOW CYTOMETRY FOR LEUKEMIA/LYMPHOMA (FCLL) PERFORMABLEon [id number] CYTOMETRY ORDER STATUS Results will be reported under F case ID when completedUniversity Hospitals Health System on above:Order Comment: Specimen Type: SPECIMEN FROM PLEURA OBTAINED BY THORACENTESISOrdering Facility: [facility] Address: [address] [place], [place] [address]Performed By: #### FCLLP ####[facility] LABCLIA [id number] [place] [address] [place] [address] [facility] [address] [facility]AN HOSPITALFLOW CYTOMETRY FOR LEUKEMIA/LYMPHOMA (FCLL) REFLEX on 24-30-0173GUVNJYXYI COMMENTUniversity Hospitals Health System on above: Order Comment: Specimen Type: SPECIMEN FROM PLEURA OBTAINED BY THORACENTESISOrdering Facility: [facility] Address: [address] [place], [place] [address]Result Comment: This test was developed and its performance characteristics determined by [facility] Amna De Santiago [facility] Pathology and Laboratory Medicine [place] ([facility] CENTERPLMI). It has not been cleared or approved by the FDA. [facility] is regulated under CLIA as qualified to perform high-complexity testing. This test is used for clinical purposes. It should not be regarded as investigational orfor research.Performed By: #### FCLLRFLX ####[facility] LABCLIA [id number] [address] STATES OF [facility] HOSPITALFINAL PERFORMING LABNormal [facility] on above:Order Comment: Specimen Type: SPECIMEN FROM PLEURA OBTAINED BY THORACENTESISOrdering Facility: [facility] Address: [address] [place], [place] [address]Result Comment: Diagnostic interpretation performed at [facility], [address] [place], [place] [address]IA# [id number] Director: Ramos Strickland M.D. Performed By: #### FCLLRFLX ####[facility] LABIA [id number] [address] FLOW CYTOMETRY RESULTSNormalCCherrington Hospital on above:Order Comment: Specimen Type: SPECIMEN FROM PLEURA OBTAINED BY THORACENTESISOrdering Facility: [facility] Address: [address] [place], [place] [address]Result Comment: Specimen type: Pleural fluidTotal nucleated cell [...] Normal PatternCD7 T/NK-cells Normal PatternCD8 T-cellsubset Normal TqbftjgJH94 B-cell subset Normal BzmmwjtXT29 Myeloid Normal YyvseiuUV03/56 NK cells Normal BzpihuqNR09 B-cells Normal XhcknbnXD26 B-cells Normal DnntrxtBL06 B-cells subset Normal StqdfiaJH21 Ramos-leukocyte Normal HspurtjKF621 Dendritic Normal FpmcqkqDJ585 B-cells Normal Patternkappa/lambda B-cells Normal PatternTRBC1 T-cells Normal, polytypicFlow cytometric analysis of the pleural fluid reveals that 95% of total events have the CD45 and side scatter properties of lymphocytes.The lymphocytes are composed of a mixture of heterogeneous T- cells (75%; CD4:CD8 ratio = 2.48), NK cells (15%) and polytypic B-cells (8%).OVN/AMIRAH 06/23/2024Performed By: #### FCLLRFLX ####[facility] LABIA [id number] [address] STATES OF AMERICAGROSS DESCRIPTIONNormalCKindred Hospital LimaComment on above: Order Comment: Specimen Type: SPECIMEN FROM PLEURA OBTAINED BY THORACENTESISOrdering Facility: [facility] Address: [address] [place], [place] [address]Result Comment: A. Pleural Cavity, RightRECEIVED 10 MLS PLEURAL FLUIDPerformed By: #### FCLLRFLX ####[facility] LABIA [id number] [address] STATES [facility] CENTERINTERPRETATIONNormalCKindred Hospital LimaComment on above:Order Comment: Specimen Type: SPECIMEN FROM PLEURA OBTAINED BY THORACENTESISOrdering Facility: [facility] Address: [address] [place], [place] [address]Result Comment: There is no immunophenotypic evidence of involvement by a lymphoproliferative disorder. Correlation with the clinical findings is suggested. Performed By: #### FCLLRFLX ####[facility] LABIA [id number] [place] [address] [place] Glucose Fld-mCncon 77-72-3694Knqxmil (Body fld) [Mass/Vol]112 mg/dLNormalSee CommentOhioHealth O'Bleness Hospital on above:Order Comment: Specimen Type: SPECIMEN FROM PLEURA OBTAINED BY THORACENTESISOrdering Facility: [facility] Address: [address] [place], [place] [address]Result Comment: Synovial fluid: Synovial fluid glucose measurement [...] document C49A. RAJEEV Bui: Clinical Laboratory Standards [place]: 2007. Performed By: #### 2344-0, 2529-6, 2881-1 ####[facility] LABCLIA [id number] [address] OF AMERICAHISTORY PHYSICALon 04-36-2383NHNAOQE PHYSICALNormalCUniversity Hospitals [facility] Fld-cCncon 51-91-4460TML (Body fld) [Catalytic activity/Vol]100 U/L NormalSee CommentOhioHealth O'Bleness Hospital on above:Order Comment: Specimen Type: SPECIMEN FROM PLEURA OBTAINED BY THORACENTESISOrdering Facility: [facility] Address: [address] [place], [place] [address]Result Comment: Pleural fluids: Pleural fluid lactate dehydrogenase [...] document C49A. RAJEEV Bui: Clinical Laboratory Standards [place]: 2007.Reference: 2. Rafael STARK, Fei Doyle. Body [...] 533. Performed By: #### 2344-0, 2529-6, 2881-1 ####[facility] LABCLIA [id number] [place] [address] [place] AMERICAMANUAL DIFFERENTIAL, BODY FLUIDon 59-54-7516ZCL TTL, BODY AUSJL365 cells countedNormalCCherrington Hospital on above:Order Comment: Specimen Type: SPECIMEN FROM PLEURA OBTAINED BY THORACENTESISOrdering Facility: [facility] Address: [address] [place], [place] [address]Performed By: #### CCBF, [id number] ####[facility] LABCLIA [id number] [place] [address] [place] AMERICALYMPH%, BF80 % [id number]th O'Bleness Hospital on above:Order Comment: Specimen Type: SPECIMEN FROM PLEURA OBTAINED BY THORACENTESISOrdering Facility: [facility] Address: [address] [place], [place] [address]Performed By: #### CCDIONICIO, [id number] ####[facility] LABCLIA [id number] [place] [address] [place] OF AMERICAMACRO%, BF6 % Mub41-13VugnmyymaOhioHealth O'Bleness Hospital on above:Order Comment: Specimen Type: SPECIMEN FROM PLEURA OBTAINED BY THORACENTESISOrdering Facility: [facility] Address: [address] [place], [place] [address]Performed By: #### CCDIONICIO, [id number] ####[facility] LABCLIA [id number] [place] [address] [place] OF AMERICAMESO %, BF1 % Normal0-2CCherrington Hospital on above:Order Comment: Specimen Type: SPECIMEN FROM PLEURA OBTAINED BY THORACENTESISOrdering Facility: [facility] Address: [address] [place], [place] [address]Performed By: #### CCBF, [id number] ####[facility] LABCLIA [id number] [place] [address] [place] AMERICAMONO% BF6 % [facility] on above:Order Comment: Specimen Type: SPECIMEN FROM PLEURA OBTAINED BY THORACENTESISOrdering Facility: [facility] Address: [address] [place], [place] [address]Performed By: #### CCBF, [id number] ####[facility] LABCLIA [id number] [place] [address] [place] AMERICANEUT%, BF6 % High0-1CCherrington Hospital on above:Order Comment: Specimen Type: SPECIMEN FROM PLEURA OBTAINED BY THORACENTESISOrdering Facility: [facility] Address: [address] [place], [place] [address]Performed By: #### CCBF, [id number] ####[facility] LABCLIA [id number] [place] [address] [place] AMERICAREAC LYMPH %, BF1 %NormalOhioHealth O'Bleness Hospital on above:Order Comment: Specimen Type: SPECIMEN FROM PLEURA OBTAINED BY THORACENTESISOrdering Facility: [facility] Address: [address] [place], [place] [address]Performed By: #### CCBF, [id number] ####[facility] LABCLIA [id number] [place] [address] [place] AMERICAOPERATIVE NOon 06-83-2762JBBDKAMJV NONormalCleFairfield Medical CenterProt Fld-mCncon 06-22-2024 Protein (Body fld) [Mass/Vol]2.6 g/dLNormalSee CommentMount Carmel Health System Comment on above:Order Comment: Specimen Type: SPECIMEN FROM PLEURA OBTAINED BY THORACENTESISOrdering Facility: [facility] Address: [address] [place], [place] [address]Result Comment: Serous fluids: Effusions are the accumulation [...] document C49A. RAJEEV Bui: Clinical Laboratory Standards [place]: 2007.Performed By: #### 2344-0, 2529-6, 2881-1 ####[facility] LABCLIA [id number] [place] [address] [place] CNOVon 58-85-6904ORSUOywhlgOoouyerhs Clinic ClevelandBasic metabolic 2000 panel on 37-23-6213Iymcv gap [Moles/Vol]13 mmol/LNormal8-15[facility] Comment on above:Order Comment: Specimen Type: BLOOD SPECIMENOrdering Facility: [facility] Address:[address] [place] [address] Performed By: #### 19758-0 ####[facility] LABCLIA [id number] [place] [address] [place] Calcium [Mass/Vol]9.3 mg/dLNormal8.5-10.2ClevelYadkin Valley Community HospitalComment on above:Order Comment: Specimen Type: BLOOD SPECIMENOrdering Facility: [facility] Address:[address] [place], [place] [address]Performed By: #### 60092-9 ####[facility] LABCLIA [id number] [place] [address] [place] AMERICAChloride [Moles/Vol] 100 mmol/QDiiabv43-488SceghncgzOhioHealth O'Bleness Hospital on above:Order Comment: Specimen Type: BLOOD SPECIMENOrdering Facility: [facility] Address:[address] [place], [place] [address]Performed By: #### 21417-2 ####[facility] LABIA [id number] [place] [address] [place] AMERICACO2 [Moles/Vol]29 mmol/LNormal 22-30[facility] on above:Order Comment: Specimen Type: BLOOD SPECIMENOrdering Facility: [facility] Address:[address] [place], [place] [address]Performed By: #### 13258-9 ####[facility] [id number] [place] [address] [place] AMERICACreatinine [Mass/Vol]1.19 mg/dLNormal0.73-1.22[facility] on above:Order Comment: Specimen Type: BLOOD SPECIMENOrdering Facility: [facility] Address:[address] [place], [place] [address]Performed By: #### 88750-6 ####[facility] [id number] [place] [address] [place] Creatinine and Glomerular filtration rate.predicted panel (S/P/Bld)64 mL/min/1.73m???Normal>=60[facility] on above:Order Comment: Specimen Type: BLOOD SPECIMENOrdering Facility: [facility] Address:[address] [place], [place] [address]Result Comment: Estimated Glomerular Filtration Rate (eGFR) is [...] not accurately reflect actual GFR.Performed By: #### 85401-1 ####[facility] LABIA [id number] [place] [address] [place] AMERICAGlucose [Mass/Vol]158 mg/dLHigh 74-99[facility] on above:Order Comment: Specimen Type: BLOOD SPECIMENOrdering Facility: [facility] Address:[address] [place], [place] [address]Result Comment: The [place] Diabetes Association (ADA) provides guidance for cutoff [...] Standards of Medical Care in Diabetes 2016, [place] Diabetes Association. Diabetes Care. 2016.39(Suppl 1).Performed By: #### 48675-8 ####[facility] LABIA [id number] [place] [address] [place] AMERICAPotassium [Moles/Vol]4.1 mmol/L Normal3.7-5.1CCherrington Hospital on above:Order Comment: Specimen Type: BLOOD SPECIMENOrdering Facility: [facility] Address:[address] [place], [place] [address]Performed By: #### 41014-3 ####[facility] [id number] [place] [address] [place] AMERICASodium [Moles/Vol]142 mmol/ULnvpoy718-448IdcdgdthgOhioHealth O'Bleness Hospital on above:Order Comment: Specimen Type: BLOOD SPECIMENOrdering Facility: [facility] Address:[address] [place], [place] [address]Performed By: #### 08471-1 ####[facility] LABCLIA [id number] [place] [address] [place] AMERICAUrea nitrogen [Mass/Vol]28 mg/dLHigh9-24[facility] Comment on above:Order Comment: Specimen Type: BLOOD SPECIMENOrdering Facility: [facility] Address:[address] [place] [address] Performed By: #### 68757-9 ####[facility] LABCLIA [id number] [place] [address] [place] CNPNon 39-38-5714GVTQYoqugsWjtnsvqsq Clinic ClevelandALBUMIN, BODY FLUIDon 69-76-6562Jnkpqlt (Body fld) [Mass/Vol]1.4 g/dLSee CommentSelect [facility] Comment on above:Body Fluid Albumin may be [...] document C49A. RAJEEV Bui: Clinical Laboratory Standards [place]: 2007. 2. Dionicio SERNA. Serum to ascites albumin gradient. UpToDate. 2015. Accessed on September 28, 2015. BODY FLUID CELL COUNTOrdered By: Britton Andrews on 94-98-1759RYM Manual cnt (Body fld) [#/Vol]/uLNINF - 2000 /uLSumma Health Barberton Campuspecimen source Nom (Body fld) Pleural Cavity, RightSelect Medical Specialty Hospital - Cleveland-FairhillW Manual cnt (Body fld) [#/Vol]443 /uL NINF - 1000 /uLSelect Medical Specialty Hospital - CantonCHOLESTEROL BFLon 05-19-2024 Cholesterol (Body fld) [Mass/Vol]30 mg/dLSee CommentClejoint township district memorial hospital ClinicComment on above:SYNOVIAL FLUIDS: Synovial fluid cholesterol [...] document C49-A. RAJEEV Bui: Clinical Laboratory Standards [place]; 2007. Comprehensive metabolic 2000 panelon 85-88-8283Oytkgxk [Mass/Vol]3.8 g/dLLow3.9 - 4.9 g/dLPatillas ClinicALP [Catalytic activity/Vol]174 U/LHigh38 - 113 U/L [place] ClinicALT [Catalytic activity/Vol]22 U/L10 - 54 U/LCleveland [facility] Anion gap [Moles/Vol]16 mmol/LHigh8 - 15 mmol/LCleveland ClinicAST [Catalytic activity/Vol]28 U/L14 - 40 U/LCleveland ClinicBilirubin [Mass/Vol]0.7 mg/dL0.2 - 1.3 mg/dLPatillas ClinicCalcium [Mass/Vol]9.1 mg/dL8.5 - 10.2 mg/dLPatillas ClinicChloride [Moles/Vol]98 mmol/L98 - 107 mmol/LCleveland ClinicCO2 [Moles/Vol]28 mmol/L22 - 30 mmol/LCleveland ClinicCreatinine [Mass/Vol]1.14 mg/dL0.73 - 1.22 mg/dLPatillas ClinicGFR/1.73 sq M.predicted among non-blacks MDRD (S/P/Bld) [...] not accurately reflect actual GFR.Glucose [Mass/Vol] 112 mg/vNAtiv86 - 99 mg/dLSelect Medical Specialty Hospital - Cleveland-FairhillComment on above:The [place] Diabetes Association (ADA) provides guidance for cutoff [...] Standards of Medical Care in Diabetes 2016, [place] Diabetes Association. Diabetes Care. 2016.39(Suppl 1). Interpretation and review of laboratory resultsAbnormalCleveland ClinicPotassium [Moles/Vol]3.4 mmol/LLow3.7 - 5.1 mmol/LCleveland ClinicProtein [Mass/Vol]6.6 g/dL6.3 - 8.0 g/dLPatillas ClinicSodium [Moles/Vol]142 mmol/L136 - 144 mmol/L [facility]-FairhillUrea nitrogen [Mass/Vol]21 mg/dL9 - 24 mg/dLSelect Medical Specialty Hospital - [place]-[facility] GLUCOSE, BODY FLUIDon 75-21-3807Mztrrub (Body fld) [Mass/Vol]106 mg/dLSee CommentSelect Medical Specialty Hospital - Cleveland-FairhillComment on above:Synovial fluid: Synovial fluid glucose measurement [...] Fluids in Clinical Chemistry Approved Guideline. CLSI [id number]. RAJEEV Bui: Clinical Laboratory Standards [place]: 2007. LACTATE DEHYDROGENASEon 42-87-2359QPD [Catalytic activity/Vol]209 U/L135 - 225 U/LCleveland ClinicComment [...] as clinically indicated. LACTATE DEHYDROGENASE, BODY FLUIDon 52-09-9682AHU (Body fld) [Catalytic activity/Vol]86 U/LSee CommentPatillas ClinicComment on above:Pleural fluids: Pleural fluid lactate [...] Fluids in Clinical Chemistry Approved Guideline. CLSI [id number]. Hao, PA: Clinical Laboratory Standards [place]: 2007. Reference: 2. Rafael STARK, Fei Doyle. [...] J Rheumatol.1992:19:529 to 533. LDH [Catalytic activity/Vol]on 23-34-1544Lodfuxyipdmafg and review of laboratory resultsNormalCleveland ClinicLaboratoryon 47-86-7372Hddan Nom (Body fld)Pleural Cavity, RightSelect Medical Specialty Hospital - Cleveland-FairhillLaboratory - Specimen informationOrdered By: Britton Andrews on 37-27-3583Nompche (Unsp spec)ClearClearCleveland ClinicColor (Body fld)YellowYellowSelect Medical Specialty Hospital - Cleveland-FairhillNo Panel Informationon 97-50-6517Itdustmtx Trinity Health SystemPH PLEURAL FLUID (FOR USE OUTSIDE OF [facility])on 05-19-2024 Fluid Nom (Body fld)Pleural Cavity, RightSelect Medical Specialty Hospital - Cleveland-FairhillpH (Body fld)7.9 [pH] [facility] on above:No reference range has been established for this specimen type. This test was developed, and its performance characteristics determined by the [facility] Department of Pathology and Laboratory Medicine. It has not been cleared or approved by the FDA. The [facility] Department of Pathology and Laboratory Medicine is regulated under CLIA as qualified to perform high-complexity testing. This test is used for clinical purposes. It should not be regarded as investigational or for research. [facility]-FairhillPROTEIN, BODY FLUIDon 94-81-4839Tjjeozm (Body fld) [Mass/Vol]2.2 g/dLSee CommentSelect Medical Specialty Hospital - [facility] [place] on above:Serous fluids: Effusions are the accumulation [...] Fluids in Clinical Chemistry Approved Guideline. CLSI [id number]. Hao, PA: Clinical Laboratory Standards [place]: 2007. TRIGLYCERIDE BFLon 21-93-4274Xoecmqpcomxk (Body fld) [Mass/Vol]13 mg/dLOhio State East Hospitalment on above:Synovial fluids: Synovial fluid triglycerides [...] document C49A. Hao PA: Clinical Laboratory Standards [place]; 2007. Albumin Fld-ncon 04-71-0425Gmobstv (Body fld) [Mass/Vol]1.4 g/dLNormalSee CommentOhioHealth O'Bleness Hospital on above:Order Comment: Specimen Type: FLUID SPECIMENOrdering Facility: [facility] Address:[address] [place], [place] [address]Result Comment: Body Fluid Albumin may be used [...] document C49A. RAJEEV Bui: Clinical Laboratory Standards [place]: 2007.2. Dionicio SERNA. Serum to ascites albumin gradient. UpToDate. 2015. Accessed on September 28, 2015.Performed By: #### 2344-0, 2529-6, 2881-1, 23403-0, 49090-5, 1747-5 ####[facility] LABCLIA [id number] [address] STATES OF [place] BF STAFF REVIEW (LAB ORDER)on 07-78-9534MA REVIEWReviewed by Lisy Acuañ M.D., Ph.DNormalOhioHealth O'Bleness Hospital on above:Order Comment: Specimen Type: FLUID SPECIMENOrdering Facility: [facility] Address:[address] [place], [place] [address]Performed By: #### CCBF, [id number], [id number] ####[facility] LABCLIA [id number] [address] OF [facility] HOSPITALBF STAFF COMMENTS Numerous mature polymorphous lymphocytes. If there is clinical concern for a lymphoproliferative disorder, please order flow cytometric analysis.Normal [facility] ClevelandComment on above:Order Comment: Specimen Type: FLUID SPECIMENOrdering Facility: [facility] Address:[address] [place], [place] [address]Performed By: #### CCDIONICIO, [id number], [id number] ####[facility] LABCLIA [id number] [place] [address] [place] AMERICABODY FLUID CELL COUNTon 79-91-4821Hhvqmtm (Unsp spec)ClearNormalClearOhioHealth O'Bleness Hospital on above:Order Comment: Specimen Type: FLUID SPECIMENOrdering Facility: [facility] Address:[address] [place], [place] [address]Performed By: #### CCBF, [id number], [id number] ####[facility] LABCLIA [id number] [place] [address] [place] AMERICAColor (Body fld)Yellow NormalYellowOhioHealth O'Bleness Hospital on above:Order Comment: Specimen Type: FLUID SPECIMENOrdering Facility: [facility] Address:[address] [place], [place] [address]Performed By: #### CCDIONICIO, [id number], [id number] ####[facility] LABCLIA [id number] [place] [address] [place] AMERICARBC Manual cnt (Body fld) [#/Vol] <2000Normal<2000[facility] on above:Order Comment: Specimen Type: FLUID SPECIMENOrdering Facility: [facility] Address:[address] [place], [place] [address]Performed By: #### CCBF, [id number], [id number] ####[facility] LABCLIA [id number] [place] [address] [place] AMERICASpecimen source Nom (Body fld)Pleural Cavity, RightNormalCCherrington Hospital on above: Order Comment: Specimen Type: FLUID SPECIMENOrdering Facility: [facility] Address:[address] [place], [place] [address]Performed By: #### CCBF, [id number], [id number] ####[facility] LABCLIA [id number] [place] [address] [place] AMERICAWBC Manual cnt (Body fld) [#/Vol]443 /uLNormal<1000[facility] on above:Order Comment: Specimen Type: FLUID SPECIMENOrdering Facility: [facility] Address:[address] [place], [place] [address]Performed By: #### CCBF, [id number], [id number] ####[facility] LABCLIA [id number] [place] [address] [place] AMERICABacteria Fld Culton 59-83-3127Femmoycf identified Cx Nom (Body fld)CULTURE, BODY FLD: No growth GRAM STAIN: No organisms seen Few Polymorphonuclear leukocytes Many Mononuclear cells Gram stain performed on cytospun specimen. Gram stain from primary specimenNormalOhioHealth O'Bleness Hospital on above:Performed By: #### 611-4, 66403-8 ####[facility] LABCLIA [id number] [place] [address] [place] AMERICACNOVon 12-02-3764NLTRZnuasiEwtjmlvmj Clinic ClevelandCYTOLOGY NON-GYNon 54-34-5955LMAB REPORTNormalCCherrington Hospital on above:Order Comment: Specimen Type: FLUID SPECIMENOrdering Facility: [facility] Address:[address] [place], [place] [address]Result Comment: Medical Cytology Report Case: [id number] Provider: Louise Cesar MD Collected: 05/18/2024 12:43 PMOrdering Location: Pulmonary Medicine Received: 05/19/2024 05:22 AMPathologist: Tracy Collins MDSpecimen: Pleural Cavity, RightPerformed By: #### CYTONON ####[facility] LABCLIA [id number] [place] [id number] [place] CLINICAL HISTORYpleural effusionNormSycamore Medical Center on above:Order Comment: Specimen Type: FLUID SPECIMENOrdering Facility: [facility] Address:[address] [place], [place] [address]Performed By: #### CYTONON ####[facility] LABCLIA [id number] [place] [address] [place] OF AMERICAFINAL DIAGNOSISNormal [facility] on above:Order Comment: Specimen Type: FLUID SPECIMENOrdering Facility: [facility] Address:[address] [place], [place] [address]Result Comment: A - Pleural Cavity, Right, Sterile Fluid/Body Fluid Negative for malignant cells. Chronic inflammation.The following cell blocks were associated with this case:A1\X09\Cell Block, Alcohol Fixed\X09\ Performed By: #### CYTONON ####[facility] LABCLIA [id number] [address] STATES [place] FINAL PERFORMING LABNoRegency Hospital Company on above:Order Comment: Specimen Type: FLUID SPECIMENOrdering Facility: [facility] Address:[address] [place], [place] [address]Result Comment: Technical component, military pay clerk screening performed at [facility], [facility] [place] [id number] CLIA# [id number] interpretation performed at [facility], [address] [place], [place] [address] CLIA# [id number] Director: Ramos Strickland M.D.Performed By: #### CYTONON ####[facility] LABCLIA [id number] [place] [address] [place] OF AMERICAGROSS DESCRIPTIONNoSelect Medical [facility] Comment on above:Order Comment: Specimen Type: FLUID SPECIMENOrdering Facility: [facility] Address:[address] [place], [place] [address]Result Comment: A. Pleural Cavity, Right20 cc hazy yellow fluid with material. ThinPrep and Cell Block prepared.Performed By: #### CYTONON ####[facility] LABCLIA [id number] [place] [address] [place] [address] [facility] HOSPITALCholest Fld-mCncon 45-04-6317Kaqevloyrll (Body fld) [Mass/Vol] 30 mg/dLNormalSee CommentOhioHealth O'Bleness Hospital on above:Order Comment: Specimen Type: FLUID SPECIMENOrdering Facility: [facility] Address:[address] [place], [place] [address]Result Comment: SYNOVIAL FLUIDS:Synovial fluid cholesterol measurement may [...] CLSI document C49-A. RAJEEV Bui: Clinical LaboratoryStandards [place]; 2007.Performed By: #### 2344-0, 2529-6, 2881-1, 73239-9, 11778-1, 1747-5 ####[facility] LABCLIA [id number] [place] [address] [place] AMERICAFluid Nom (Body fld)Pleural Cavity, RightNormalCCherrington Hospital on above: Order Comment: Specimen Type: FLUID SPECIMENOrdering Facility: [facility] Address:[address] [place], [place] [address]Performed By: #### 2344- 0, 2529-6, 2881-1, 34771-6, 78798-9, 1747-5 ####[facility] LABCLIA [id number] [place] [address] [place] AMERICAPerformed By: #### [id number] ####[facility] LABIA [id number] [place] [address] [place] Comprehensive metabolic 2000 panelon 42-41-2834Vduorkk [Mass/Vol]3.8 g/dLLow 3.9-4.9CCherrington Hospital on above:Order Comment: Specimen Type: BLOOD SPECIMENOrdering Facility: [facility] Address:[address] [place], [place] [address]Performed By: #### 2532-0, 72783-5 ####[facility] [id number] [place] [address] [place] AMERICAALP [Catalytic activity/Vol]174 U/WTadw21-849IgydsaphxOhioHealth O'B[facility] Hospital on above:Order Comment: Specimen Type: BLOOD SPECIMENOrdering Facility: [facility] Address:[address] [place], [place] [address]Performed By: #### 2532-0, 34285-4 ####[facility] [id number] [address] STATES OF AMERICAALT [Catalytic activity/Vol]22 U/UNonnum66-14MkmsjnskhOhioHealth O'Bleness Hospital on above:Order Comment: Specimen Type: BLOOD SPECIMENOrdering Facility: [facility] Address:[address] [place], [place] [address]Performed By: #### 2532-0, 46609-7 ####[facility] LABIA [id number] [place] [address] [place] Anion gap [Moles/Vol]16 mmol/LHigh8-15[facility] on above:Order Comment: Specimen Type: BLOOD SPECIMENOrdering Facility: [facility] Address:[address] [place], [place] [address]Performed By: #### 2532-0, 91675-9 ####[facility] LABCLIA [id number] [facility] [place] [address] [place] AMERICAAST [Catalytic activity/Vol]28 U/WXhnert89-90SsdjcptvdOhioHealth O'Bleness Hospital on above:Order Comment: Specimen Type: BLOOD SPECIMENOrdering Facility: [facility] Address:[address] [place], [place] [address]Performed By: #### 2532- 0, 82175-6 ####[facility] LABCLIA [id number] [facility] [place] [address] [place] AMERICABilirubin [Mass/Vol]0.7 mg/dLNormal0.2-1.3CCherrington Hospital on above:Order Comment: Specimen Type: BLOOD SPECIMENOrdering Facility: [facility] Address:[address] [place], [place] [address]Performed By: #### 2532-0, ####[facility] LABIA [id number] [place] [address] [place] AMERICACalcium [Mass/Vol]9.1 mg/dLNormal 8.5-10.2CCherrington Hospital on above:Order Comment: Specimen Type: BLOOD SPECIMENOrdering Facility: [facility] Address:[address] [place], [place] [address]Performed By: #### 2532-0, 44921-0 ####[facility] LABIA [id number] [place] [address] [place] AMERICAChloride [Moles/Vol]98 mmol/KAwxyec10-180ZwjcbwkynOhioHealth O'Bleness Hospital on above:Order Comment: Specimen Type: BLOOD SPECIMENOrdering Facility: [facility] Address:[address] [place], [place] [address]Performed By: #### 2532-0, 04860-2 ####[facility] LABIA [id number] [place] [address] [place] AMERICACO2 [Moles/Vol]28 mmol/KGkqkpq30-37BgfdfdzohMount Carmel Health System Comment on above:Order Comment: Specimen Type: BLOOD SPECIMENOrdering Facility: [facility] Address:[address] [place] [address] Performed By: #### 2532-0, 30675-6 ####[facility] LABCLIA [id number] [place] [address] [place] Creatinine [Mass/Vol]1.14 mg/dLNormal0.73-1.22[facility] on above:Order Comment: Specimen Type: BLOOD SPECIMENOrdering Facility: [facility] Address:[address] [place] [address] Performed By: #### 2532-0, 07660-9 ####[facility] LABCLIA [id number] [place] [address] [place] Creatinine and Glomerular filtration rate.predicted panel (S/P/Bld)68 mL/min/1.73m???Normal>=60[facility] on above:Order Comment: Specimen Type: BLOOD SPECIMENOrdering Facility: [facility] Address:[address] [place], [place] [address]Result Comment: Estimated Glomerular Filtration Rate (eGFR) is [...] accurately reflect actual GFR.Performed By: #### 2532-0, 81565-1 ####[facility] LABIA [id number] [place] [address] [place] AMERICAGlucose [Mass/Vol]112 mg/dLHigh 74-99[facility] on above:Order Comment: Specimen Type: BLOOD SPECIMENOrdering Facility: [facility] Address:[address] [place], [place] [address]Result Comment: The [place] Diabetes Association (ADA) provides guidance for cutoff [...] Standards of Medical Care in Diabetes 2016, [place] Diabetes Association. Diabetes Care. 2016.39(Suppl 1).Performed By: #### 2532-0, 33137-1 ####[facility] LABCLIA [id number] [facility] [place] [address] [place] AMERICAPotassium [Moles/Vol]3.4 mmol/LLow3.7-5.1CCherrington Hospital on above:Order Comment: Specimen Type: BLOOD SPECIMENOrdering Facility: [facility] Address:[address] [place], [place] [address]Performed By: #### 2532-0, 24041-8 ####[facility] LABIA [id number] [place] [address] [place] AMERICAProtein [Mass/Vol]6.6 g/dLNormal 6.3-8.0[facility] on above:Order Comment: Specimen Type: BLOOD SPECIMENOrdering Facility: [facility] Address:[address] [place] [address]Performed By: #### 2532-0, 87508-1 ####[facility] LABIA [id number] [place] [address] [place] AMERICASodium [Moles/Vol]142 mmol/ZPxqeze237-414CikncdskkOhioHealth O'Bleness Hospital on above:Order Comment: Specimen Type: BLOOD SPECIMENOrdering Facility: [facility] Address:[address] [place] [address]Performed By: #### 2532-0, 88892-8 ####[facility] LABCLIA [id number] [place] [address] [place] AMERICAUrea nitrogen [Mass/Vol]21 mg/dLNormal9-24[facility] on above:Order Comment: Specimen Type: BLOOD SPECIMENOrdering Facility: [facility] Address:[address] [place], [place] [address]Performed By: #### 2532-0, 07926-5 ####[facility] LABCLIA [id number] [place] [address] [place] AMERICAFATTY ACIDS PROFILE, ESSENTIALon 05-10-7007A-LINOLENIC ACID, C18 3W343 nmol/zYLipmnv40-197RxhdpxwyoOhioHealth O'Bleness Hospital on above:Order Comment: Specimen Type: BLOOD SPECIMENOrdering Facility: [facility] Address:[address] [place], [place] [address]Performed By: #### CFAPRO ####[facility]IESCLIA [id number] [place], [place] [address]NNYUFAFFE ACID, C20 018 nmol/mLNormal8-43[facility] on above:Order Comment: Specimen Type: BLOOD SPECIMENOrdering Facility: [facility] Address:[address] [place], [place] [address]Performed By: #### CFAPRO ####[facility]ORATORIESCLIA [id number] [place] [address] ARACHIDONIC ACID, C20 4E2206 nmol/bGPintss611-1929OutridtuwMount Carmel Health System Comment on above:Order Comment: Specimen Type: BLOOD SPECIMENOrdering Facility: [facility] Address:[address] [place] [address] Performed By: #### CFAPRO ####[facility]IESCLIA [id number] [place], [place] [address]BWU, C22 6W399 nmol/iWQgkeho54-157TpxhloicsOhioHealth O'Bleness Hospital on above:Order Comment: Specimen Type: BLOOD SPECIMENOrdering Facility: [facility] Address:[address] [place], [place] [address]Performed By: #### CFAPRO ####[facility]IESCLIA [id number] [place], [place] [address]NQLICOJBZF ACID, C22 14 nmol/mLNormal1-10[facility] on above:Order Comment: Specimen Type: BLOOD SPECIMENOrdering Facility: [facility] Address:[address] [place], [place] [address]Performed By: #### CFAPRO ####[facility]IESCLIA [id number] [place], [place] [address]NFF, C22 5W330 nmol/mLNormal 13-75[facility] on above:Order Comment: Specimen Type: BLOOD SPECIMENOrdering Facility: [facility] Address:[address] [place], [place] [address]Performed By: #### CFAPRO ####[facility]IESCLIA [id number] [place], [place] [address]ZAA, C22 5W613 nmol/mLNormal 6-55[facility] on above:Order Comment: Specimen Type: BLOOD SPECIMENOrdering Facility: [facility] Address:[address] [place], [place] [address]Performed By: #### CFAPRO ####[facility]IESCLIA [id number] [place], [place] [address]OXP, C22 4W618 nmol/mLNormal 10-40[facility] on above:Order Comment: Specimen Type: BLOOD SPECIMENOrdering Facility: [facility] Address:[address] [place], [place] [address]Performed By: #### CFAPRO ####[facility]IESCLIA [id number] [place], [place] [address]JZH FATTY ACIDS PROF, ESSENTIAL SPSee NoteNormalCCherrington Hospital on above:Order Comment: Specimen Type: BLOOD SPECIMENOrdering Facility: [facility] Address:[address] [place], [place] [address]Result Comment: Authorized individuals can access the ARUPEnhanced Report using the following link:h [email or web address] By: CHACORTA [address] [place], [place] [address]Lsuzccofff Director: Anne-Marie Correa MD, PhDCLIA Number: [id number] By: #### CFAPRO ####[facility]IESCLIA [id number] [place], [place] [address]WTS, C20 5W322 nmol/mLNormal8-130[facility] on above:Order Comment: Specimen Type: BLOOD SPECIMENOrdering Facility: [facility] Address:[address] [place], [place] [address]Performed By: #### CFAPRO ####CHACORTA [facility] CENTERCLIA [id number] [place], [place] [address]Q-GIRFDBTYH ACID, C18 3W620 nmol/jEBxzzwx63-267HhprnkssnMercy Hospitalment on above: Order Comment: Specimen Type: BLOOD SPECIMENOrdering Facility: [facility] Address:[address] [place], [place] [address]Performed By: #### CFAPRO ####[facility]IESCLIA [id number] [place] [address] R-X-YNOQOMRWO C20:3W693 nmol/kOYiskpb31-467FjugtohleOhioHealth O'Bleness Hospital on above:Order Comment: Specimen Type: BLOOD SPECIMENOrdering Facility: [facility] Address:[address] [place], [place] [address]Performed By: #### CFAPRO ####[facility]IESCLIA [id number] [place], [place] [address]KEHPMTCIXGSV ACID, C16 1W926 nmol/tSVkxxcf66-17ScwfdaxwzMount Carmel Health System Comment on above:Order Comment: Specimen Type: BLOOD SPECIMENOrdering Facility: [facility] Address:[address] [place] [address] Performed By: #### CFAPRO ####[facility]IESCLIA [id number] [place], [place] [address]IDHSBVFFQGCNTI, FATTY ACID PROFILENormalNormal [facility] on above:Order Comment: Specimen Type: BLOOD SPECIMENOrdering Facility: [facility] Address:[address] [place], [place] [address]Result Comment: Normal fatty acid profile.Results reviewed and interpreted by Rosemarie Painter MD, PhD, FACMGINTERPRETIVE INFORMATION: Fatty Acids Profile, Essential Ser/PlasThis test does not screen for disorders of peroxisomalbiogenesis/function.This test was developed and its performance characteristicsdetermined by [employer]. It has not been cleared orapproved by the [place] Food and Drug Administration. This test wasperformed in a CLIA certified laboratory and is intended forclinical purposes.Performed By: #### CFAPRO ####[facility]IESCLIA [id number] [place], [place] [address]RXHXTX ACID, C12 022 nmol/mLNormal1-200[facility] on above:Order Comment: Specimen Type: BLOOD SPECIMENOrdering Facility: [facility] Address:[address] [place] [address] Performed By: #### CFAPRO ####[facility]IESCLIA [id number] [place], [place] [address]DLKXBVMF ACID, C18 6S21974 nmol/vKJtwvzi2585-3489 [facility] on above:Order Comment: Specimen Type: BLOOD SPECIMENOrdering Facility: [facility] Address:[address] [place], [place] [address]Performed By: #### CFAPRO ####[facility]IESCLIA [id number] [place], [place] [address]GZKJ ACID, C20 3W96 nmol/mL Normal1-35[facility] on above:Order Comment: Specimen Type: BLOOD SPECIMENOrdering Facility: [facility] Address:[address] [place], [place] [address]Performed By: #### CFAPRO ####[facility]IESCLIA [id number] [place], [place] [address]JADTXDFF ACID, C14 069 nmol/mOPmgrvv95-368DfincgivoOhioHealth O'Bleness Hospital on above:Order Comment: Specimen Type: BLOOD SPECIMENOrdering Facility: [facility] Address:[address] [place], [place] [address]Performed By: #### CFAPRO ####[facility]IESCLIA [id number] [place] [address] NERVONIC ACID, C24 1Z2943 nmol/sFGodawq57-282NlicyxxihOhioHealth O'Bleness Hospital on above:Order Comment: Specimen Type: BLOOD SPECIMENOrdering Facility: [facility] Address:[address] [place] [address] Performed By: #### CFAPRO ####[facility]IESCLIA [id number] [place], [place] [address]YGXPU ACID, C18 1I64337 nmol/cPRdqwtn611-9028 [facility] on above:Order Comment: Specimen Type: BLOOD SPECIMENOrdering Facility: [facility] Address:[address] [place], [place] [address]Performed By: #### CFAPRO ####[facility]IESCLIA [id number] [place], [place] [address]XMYBLUWM ACID, C16 [address]39[address] nmol/cFKdxfdc9203-5805NmgzolkesOhioHealth O'Bleness Hospital on above:Order Comment: Specimen Type: BLOOD SPECIMENOrdering Facility: [facility] Address:[address] [place], [place] [address]Performed By: #### CFAPRO ####[facility]IESCLIA [id number] [place], [place] [address]MVLTCSPTFPD ACID, C16 3I5703 nmol/dXFrnaix07-172MndrqhdrnOhioHealth O'Blen[facility] on above: Order Comment: Specimen Type: BLOOD SPECIMENOrdering Facility: [facility] Address:[address] [place], [place] [address]Performed By: #### CFAPRO ####[facility]IESCLIA [id number] [place] [address] STEARIC ACID, C18 0606 nmol/wKKbsklq796-0892QuisovjogOhioHealth O'Bleness Hospital on above:Order Comment: Specimen Type: BLOOD SPECIMENOrdering Facility: [facility] Address:[address] [place], [place] [address]Performed By: #### CFAPRO ####[facility]IESCLIA [id number] [place], [place] [address]DFEAS FATTY ACIDS7.7 mmol/LNormal4.5-15.0[facility] on above:Order Comment: Specimen Type: BLOOD SPECIMENOrdering Facility: [facility] Address:[address] [place] [address] Performed By: #### CFAPRO ####[facility]IESCLIA [id number] [place], [place] [address]EBBOB MONOUNSATURATED ACIDS1.9 mmol/LNormal0.9-4.7 [facility] on above:Order Comment: Specimen Type: BLOOD SPECIMENOrdering Facility: [facility] Address:[address] [place], [place] [address]Performed By: #### CFAPRO ####[facility]IESCLIA [id number] [place], [place] [address]HWXVV POLYUNSATURATED ACIDS3.1 mmol/LNormal2.1-6.2CCherrington Hospital on above:Order Comment: Specimen Type: BLOOD SPECIMENOrdering Facility: [facility] Address:[address] [place], [place] [address]Performed By: #### CFAPRO ####[facility]IESCLIA [id number] [place], [place] [address]MYMES SATURATED ACIDS2.7 mmol/LNormal1.5-5.3CCherrington Hospital on above:Order Comment: Specimen Type: BLOOD SPECIMENOrdering Facility: [facility] Address:[address] [place], [place] [address]Performed By: #### CFAPRO ####[facility]IESCLIA [id number] [place], [place] [address]VQHKY W30.19 mmol/LNormal0.12-0.55[facility] on above:Order Comment: Specimen Type: BLOOD SPECIMENOrdering Facility: [facility] Address:[address] [place], [place] [address]Performed By: #### CFAPRO ####[facility]IESCLIA [id number] [place], [place] [address]QSQEI W62.9 mmol/LNormal1.8-5.7CCherrington Hospital on above: Order Comment: Specimen Type: BLOOD SPECIMENOrdering Facility: [facility] Address:[address] [place], [place] [address]Performed By: #### CFAPRO ####[facility]IESCLIA [id number] [place] [address] TRIENE/TETRAENE RATIO0.988Uivsqv1.004-0.051CCherrington Hospital on above:Order Comment: Specimen Type: BLOOD SPECIMENOrdering Facility: [facility] Address:[address] [place], [place] [address]Performed By: #### CFAPRO ####[facility]IESCLIA [id number] [place], [place] [address]BSAVLLHK ACID, C18 7A3087 nmol/xNIspaee93-826OqhoqwerkMount Carmel Health System Comment on above:Order Comment: Specimen Type: BLOOD SPECIMENOrdering Facility: [facility] Address:[address] [place] [address] Performed By: #### CFAPRO ####[facility]IESCLIA [id number] [place], [place] [address]QEMM CYTOMETRY FOR LEUKEMIA/LYMPHOMA (FCLL) PERFORMABLEon [id number] CYTOMETRY ORDER STATUSResults will be reported under F case ID when completedNoRegency Hospital Company on above: Order Comment: Specimen Type: FLUID SPECIMENOrdering Facility: [facility] Address:[address] [place], [place] [address]Result Comment: Corrected result: Previously reported as A bone marrow sample was received for potential flow cytometry studies. Following morphologic review, flow cytometric studies will be ordered by the hematopathologist if testing is indicated. on 05/20/2024 at1:05 PM EST.Performed By: #### FCLLP ####[facility] LABCLIA [id number] [place] [id number] [place] FLOW CYTOMETRY FOR LEUKEMIA/LYMPHOMA (FCLL) REFLEXon [id number] COMMENT NormalOhioHealth O'Bleness Hospital on above:Order Comment: Specimen Type: FLUID SPECIMENOrdering Facility: [facility] Address:[address] [place], [place] [address]Result Comment: This assay is not designed to detect minimal residual disease, plasma cell neoplasms, or myeloid antigen maturational patterns.This test was developed and its performance characteristics determined by [facility] [place] ([facility]ENTERPL[facility]). It has not been cleared or approved by the FDA. [facility] is regulated under CLIA as qualified to perform high-complexity testing. This test is used for clinical purposes. It should not be regarded as investigational or for research.Performed By: #### FCLLRFLX ####[facility] LABCLIA [id number] [address] STATES OF [facility] HOSPITALFINAL PERFORMING LABNormSycamore Medical Center on above: Order Comment: Specimen Type: FLUID SPECIMENOrdering Facility: [facility] Address:[address] [place], [place] [address]Result Comment: Diagnostic interpretation performed at [facility], [address] [place], [place] [address] CLIA# [id number] Director: Ramos Strickland M.D. Performed By: #### FCLLRFLX ####[facility] LABCLIA [id number] [place] [address] [place] FLOW CYTOMETRY RESULTSNoRegency Hospital Company on above:Order Comment: Specimen Type: FLUID SPECIMENOrdering Facility: [facility] Address:[address] [place], [place] [address]Result Comment: Specimen type: Pleural fluidTotal nucleated cell count: 320,000 totalRed blood cellcount: N/ADifferential (serous fluid): See body fluid manual differentialMorphology comments: UnremarkableViability: 91%Flow Cytometry Body Fluid ImmunophenotypingMarker Normal Cell Type Result (Lymphocytes)CD3 T-cells Normal PatternCD4 T-cell subset Normal PatternCD5 T-cells Normal PatternCD7 T/NK-cells Normal PatternCD8 T-cell subset Normal EatjykoBW74 Myeloid Normal RvjvjziVR42/56 NK cells Normal PzxmgolRP16 B-cells Normal RrjsctsJS57 Blasts Normal CpeqviwAM76 Ramos-leukocyte Normal Patternkappa/lambda B-cells PolytypicFlow cytometric analysis of the fluid reveals that 40% of total events have the CD45 and light scatter properties of lymphocytes. The lymphocytes are composed of T- cells (54%, CD4:CD8 ratio = 22.32), NK cells (37%), and polytypic B-cells (9%). Granulocytic elements are 1% of events. Blasts are not detected.Performed By: #### FCLLRFLX ####[facility] LABCLIA [id number] [place] [address] [place] OF AMERICAGROSS DESCRIPTION NormalOhioHealth O'Bleness Hospital on above:Order Comment: Specimen Type: FLUID SPECIMENOrdering Facility: [facility] Address:[address] [place], [place] [address]Result Comment: A. Pleural Cavity, RightRECEIVED 4 ML OF PLEURAL FLUID Entirely submitted for Flow Cytometry.Performed By: #### FCLLRFLX ####[facility] LABIA [id number] [address] STATES OF AMERICAINTERPRETATIONNormal [facility] on above:Order Comment: Specimen Type: FLUID SPECIMENOrdering Facility: [facility] Address:[address] [place], [place] [address]Result Comment: There is no evidence of involvement by a lymphoproliferative disorder or abnormal blast population. Correlation with the clinical findings is suggested.SO/SHELBY 05/20/24 Performed By: #### FCLLRFLX ####[facility] LABIA [id number] [place] [address] [place] OF AMERICAGlucose Fld-mCncon 84-29-4330Mvrqtaw (Body fld) [Mass/Vol]106 mg/dLNormalSee CommentOhioHealth O'Bleness Hospital on above: Order Comment: Specimen Type: FLUID SPECIMENOrdering Facility: [facility] Address:[address] [place], [place] [address]Result Comment: Synovial fluid: Synovial fluid glucose measurement [...] document C49A. RAJEEV Bui: Clinical Laboratory Standards [place]: 2007.Performed By: #### 2344-0, 2529-6, 2881-1, 45800-2, 61201-6, 1747-5 ####[facility] LABCLIA [id number] [address] STATES OF CINDY LDH Fld-[facility] 08-87-5502RKJ (Body fld) [Catalytic activity/Vol]86 U/LNormalSee CommentMount Carmel Health SystemComment on above:Order Comment: Specimen Type: FLUID SPECIMENOrdering Facility: [facility] Address:[address] [place], [place] [address]Result Comment: Pleural fluids: Pleural fluid lactate dehydrogenase [...] document C49A. RAJEEV Bui: Clinical Laboratory Standards [place]: 2007.Reference: 2. Fei Hall DR. Body fluid analysis: clinical utility and applicability of published studies to guide interpretation of today's laboratory testing in serous fluids. Crit Rev Clin Lab Sci, 2013:50(4,5):107 to 124.Reference: 3. Flaca Najera [place] [address] DR. Lactate dehydrogenase activity and its isoenzymes in serum and synovial fluid of patients with rheumatoid arthritis and osteoarthritis. J Rheumatol. 1992:19:529 to 533.Performed By: #### 2344-0, 2529-6, 2881-1, 29314-7, 90462-7, 1747-5 ####[facility] LABCLIA [id number] [place] [address] [place] OF AMERICALD SerPl-cCncon 23-09-9605WAH [Catalytic activity/Vol]209 U/LIkrsli637-363FfxwqhovlOhioHealth O'Bleness Hospital on above:Order Comment: Specimen Type: BLOOD SPECIMENOrdering Facility: [facility] Address:[address] [place], [place] [address]Result Comment: Hemolysis present. The origin of the hemolysis, in vitro versus an in vivo hemolytic process, cannot be distinguished via this assay alone. In vitro hemolysis may lead to non-physiological (spurious) elevation in lactate dehydrogenase (LDH) results. Theresult should be interpreted in context of the clinical setting and other test results. Suggest reorder as clinically indicated.Performed By: #### 2532-0, 21217-3 ####[facility] LABCLIA [id number] [place] [address] [place] OF AMERICAMANUAL DIFFERENTIAL, BODY FLUIDon 34-18-7469GUF TTL, BODY WIFYC419 cells countedNormalCCherrington Hospital on above:Order Comment: Specimen Type: FLUID SPECIMENOrdering Facility: [facility] Address:[address] [place], [place] [address]Performed By: #### CCBF, [id number], [id number] ####[facility] LABCLIA [id number] [place] [address] [place] OF AMERICAEOSIN%, BF2 %NormalOhioHealth O'Bleness Hospital on above:Order Comment: Specimen Type: FLUID SPECIMENOrdering Facility: [facility] Address:[address] [place], [place] [address]Performed By: #### CCBF, [id number], [id number] ####[facility] LABCLIA [id number] [place] [address] [place] OF AMERICALYMPH%, BF80 %Kkac34-05KhxecxjmuMount Carmel Health System Comment on above:Order Comment: Specimen Type: FLUID SPECIMENOrdering Facility: [facility] Address:[address] [place], [place] [address]Result Comment: Corrected result: Previously reported as 75 % on 05/19/2024 at 6:29 AM EST.Performed By: #### CCDIONICIO, [id number], [id number] ####[facility] LABCLIA [id number] [place] [address] [place] OF AMERICAMACRO%, BF4 %Uge28-79EjtzzzntdMount Carmel Health SystemComment on above:Order Comment: Specimen Type: FLUID SPECIMENOrdering Facility: [facility] Address:[address] [place], [place] [address]Performed By: #### CCDIONICIO, [id number], [id number] ####[facility] LABCLIA [id number] [place] [address] [place] OF AMERICANEUT%, BF14 %High0-1 Mount Carmel Health SystemComment on above:Order Comment: Specimen Type: FLUID SPECIMENOrdering Facility: [facility] Address:[address] [place], [place] [address]Performed By: #### CCDIONICIO, [id number], [id number] ####[facility] LABCLIA [id number] [address] [address] [place] OF AMERICAREAC LYMPH %, BFNormalCKindred Hospital Lima Comment on above:Order Comment: Specimen Type: FLUID SPECIMENOrdering Facility: [facility] Address:[address] [place], [place] [address]Result Comment: Corrected result: Previously reported as 5 % on 05/19/2024 at 6:29 AM EST.Performed By: #### CCBF, [id number], [id number] ####[facility] LABCLIA [id number] [place] [address] [place] OF AMERICAMicroorganism Spec Culton 75-69-4457Fdpvarqufgtlq identified Cx Nom (Unsp spec)CULTURE, AFB: No Acid Fast Bacilli isolated after 42 days AFB STAIN: No acid fast bacilli seen by fluorochrome stainNormalCKindred Hospital Lima Comment on above:Performed By: #### 611-4, 52385-8 ####[facility] LABIA [id number] [place] [address] [place] OF AMERICAPH PLEURAL FLUID (FOR USE OUTSIDE OF [facility])on 31-98-5269sX (Body fld)7.9 [pH]NormalMount Carmel Health SystemComment on above:Order Comment: Specimen Type: FLUID SPECIMENOrdering Facility: [facility] Address:[address] [place], [place] [address]Result Comment: No reference range has been established for this specimen type.This test was developed, and its performance characteristics determined by the [facility] Department of Pathology and Laboratory Medicine. It has not been cleared or approved by the FDA. The [facility] Department of Pathology and Laboratory Medicine is regulated under CLIA as qualified to perform high-comple xity testing. This test is used for clinical purposes. It should not be regarded as investigationalor for research.Performed By: #### [id number] ####[facility] LABIA [id number] [place] [address] [place] STATES OF AMERICAProt Fld-mCncon 68-93-1249Rpfstdd (Body fld) [Mass/Vol]2.2 g/dLNormalSee CommentOhioHealth O'Bleness Hospital on above: Order Comment: Specimen Type: FLUID SPECIMENOrdering Facility: [facility] Address:[address] [place], [place] [address]Result Comment: Serous fluids: Effusions are the accumulation [...] document C49A. RAJEEV Bui: Clinical Laboratory Standards [place]: 2006.Performed By: #### 2344-0, 2529-6, 2881-1, 38619-8, 42461-9, 1747-5 ####[facility] LABCLIA [id number] [place] [address] [place] OF AMERICATrigl Fld-mCncon 05-18-2024 Triglyceride (Body fld) [Mass/Vol]13 mg/dLNoSelect Medical [facility] Comment on above:Order Comment: Specimen Type: FLUID SPECIMENOrdering Facility: [facility] Address:[address] [place], [place] [address]Result Comment: Synovial fluids: Synovial fluid triglycerides measurement [...] document C49A. RAJEEV Bui: Clinical Laboratory Standards [place]; 2007.Performed By: #### 2344-0, 2529-6, 2881-1, 15031-3, 93004-4, 1747-5 ####[facility] LABCLIA [id number] [place] [address] [place] OF AMERICAXR CHEST 2V FRONTAL/LATon 61-99-6807EL CHEST 2V FRONTAL/LATNormalCKindred Hospital Lima XR Chest PA and Lateralon 40-23-2504POQOURHJCJ: Slight decrease in the right pleural effusion.. 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 [employer]: ALONSO Transcribe Date/Time: May 18 2024 1:40P Dictated by : REBECCA LOVELACE MD This examination was interpreted and the report reviewed and electronically signed by: REBECCA LOVELACE MD on May 18 2024 1:46PM [facility] DIVISION OF RADIOLOGY* * *Final Report* [...] in the thoracic spine. DIVISION OF RADIOLOGYProvider, [facility] * * *Final Report* * [...] Slight decrease in the right pleural effusion.. 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 [employer]: PSCB Transcribe Date/Time: May 18 2024 1:40P Dictated by : REBECCA LOVELACE MD This examination was interpreted and the report reviewed and electronically signed by: REBECCA LOVELACE MD on May 18 2024 1:46PM EST [facility]Rad[facility] Study observation (narrative)[facility] ClinicXR Chest PA and LateralOrdered By: Ccf Provider on 05-86-1730Gtjiqyfpq ClinicANES POSTPROC EVALon 90-65-2862RMPE POSTPROC EVALHNO ID: [id number] Author: STEVEN DONNELLY MD Service: Anesthesiology Author Type: Anesthesiologist Type: Anesthesia Postprocedure Evaluation Filed: 04/28/2024 16:14 Note Text: POST ANESTHESIA EVALUATION NOTE : 1950 Procedure Summary Date: 04/28/24 Room / Location: [facility] - ENDO Anesthesia Start: 1129 Anesthesia Stop: 1210 Procedures: EGD DIAGNOSTIC COLONOSCOPY DIAGNOSTIC Diagnosis: Diarrhea, unspecified type Scheduled Providers: Vic Ponce MD; Steven Donnelly I, MD; Julian Batista APRN.RAIL SIGNAL WORKER Responsible Provider: Steven Donnelly I, MD Anesthesia [...] April 28, 2024 TIME: 4:14 PM CSN: [id number] HospitalANES PRE-OPon 96-89-8381YWSC PRE-OPHNO ID: [id number] Author: STEVEN DONNELLY MD Service: Anesthesiology Author Type: Anesthesiologist Type: Anesthesia Preprocedure Evaluation Filed: 04/28/2024 11:18 Note Text: ANESTHESIOLOGY DAY OF SURGERY NOTE : 1950 Procedure Information Date/Time: 04/28/24 1230 Scheduled providers: Vic Ponce MD; Steevn Donnelly I, MD; Julian Batista APRN.RAIL SIGNAL WORKER Procedures: EGD DIAGNOSTIC COLONOSCOPY DIAGNOSTIC Location: [facility] - ENDO Estimated body mass index [...] and consent discussed: yes. Patient / Responsible Green Party agrees to proceed: yes Patient / [...] Medications as of 04/28/2024 Medication Sig - QFSLJGB-JEJSJANNS-NKHH ORAL Take by mouth. - iv contrast [...] April 28, 2024 TIME: 11:17 AM CSN: [id number] Health [facility] PRE-OPNormalMount Carmel Health SystemColonoscopyon 83-57-1960LiidcawnavsKodeghsh Hosptial Gastrointestinal Endoscopy Patient Name: Sav Raymundo Procedure Date: 04/28/2024 11:16 AM Date of : 1950 Admit Type: Outpatient Age: 74 Room: [place] [address] Gender: Male Note Status: Finalized Attending MD: Vic Ponce MD, [id number] Procedure: Colonoscopy Indications: Chronic diarrhea Comorbidities Patient [...] physician, the nurse, the anesthesiologist and the dryer feeder in the procedure room at 11:29 AM. [...] prior dose. Procedure Code(s): --- Professional --- 61580, Colonoscopy, flexible; with biopsy, single or multiple Diagnosis Code(s): --- Professional --- K52.9, Noninfective gastroenteritis and colitis, unspecified CPT copyright 2020 [employer] [place] [employer]. All rights reserved. The codes documented in this report are preliminary and upon pad cutter review may be revised to meet current compliance requirements. Attending Participation: I personally performed the entire procedure. Scope In: 11:48:20 AM Scope Out: 11:55:18 AM (more content not included)...[facility] Colonoscopy studyon 42-19-9004Kgtzdovf Hosptial Gastrointestinal Endoscopy Patient Name: Sav Raymundo Procedure Date: 04/28/2024 11:16 AM Date of : 1950 Admit Type: Outpatient Age: 74 Room: [place] [address] Gender: Male Note Status: Finalized Attending MD: Vic Ponce MD, [id number] Procedure: Colonoscopy Indications: Chronic diarrhea Comorbidities Patient [...] physician, the nurse, the anesthesiologist and the dryer feeder in the procedure room at 11:29 AM. [...] inflammation, mass, polyps, s (more content not included)...PROVATIONSelect Medical Specialty Hospital [facility]-FairhillRadiology Study observation (narrative)[place] Study observation Narrativeon 63-91-7166Hcbxxxbm Hosptial Gastrointestinal Endoscopy Patient Name: Sav Raymundo Procedure Date: 04/28/2024 11:17 AM Date of : 1950 Admit Type: Outpatient Age: 74 Room: [place] [address] Gender: Male Note Status: Finalized Attending MD: Vic Ponce MD, [id number] Procedure: Upper GI endoscopy Indications: Dysphagia, Heartburn, [...] physician, the nurse, the anesthesiologist and the dryer feeder in the procedure room at 11:29 AM. [...] from the incisors. T (more content not included)...PROVATIONSelect Medical Specialty Hospital - [facility]-FairhillRadiology Study observation (narrative)[facility] PHYSICALon [id number] PHYSICALHNO ID: [id number] Author: VIC PONCE MD Service: Gastroenterology Author [...] Plan: MAC Additional Comments: None Vic Ponce MDCurahealth - [facility] PROGon 99-44-6719LBGTBDF PROG HNO ID: [id number] Author: JAHAIRA HOOD, EVAN Service: Nursing Author [...] REFERRAL (RECOMMENDATION): None Electronically Signed By: Jahaira CristobalCollis P. [facility] Hospital HNO ID: [id number] Author: MAUREEN LAUGHLIN RN Service: ? Author [...] REFERRAL (RECOMMENDATION): None Electronically Signed By: Maureen LaughlinGrover Memorial Hospital NormalWooster Community HospitalGICAL PATHOLOGYon 57-73-3901LSZM REPORTNoal [facility] BoysComment on above:Order Comment: Specimen Type: TISSUE SPECIMEN Order[facility] Facility: [facility] Address: [address] [place] [address]Zumabx Comment: Surgical Pathology Report Case: [id number] Authorizing Provider: Vic Ponce MD Collected: 04/28/2024 11:37 AM Ordering Location: [facility] Received: 04/28/2024 01:31 PM Endoscopy - ENDO Pathologist: Simba Frias MD, PhD Specimens: A) - Small Bowel, Duodenum, Biopsy B) - Stomach, Biopsy C) - Stomach, Polyp, Biopsy D) - Esophagus, Biopsy E) - Small Bowel, Ileum, Biopsy F) - Colon, Biopsy, random colonPerformed By: #### S #### [facility] CLIA [id number] [address] [place] [address] OF AMERICADIAGNOSIS COMMENTComment F: This pattern of [...] should be of value in this differential. NormalLyman School For BoysComment on above:Order Comment: Specimen Type: TISSUE SPECIMEN Order[facility] Facility: [facility] Address: [address] [place], [place] [address]Performed By: #### S #### [facility] [place] [id number] [address] [place] [address] STATES OF AMERICAFINAL DIAGNOSISNormal [facility] BoysComment on above:Order Comment: Specimen Type: TISSUE SPECIMEN Ordering Facility: [facility] Address: [address] [place], [place] [address]Result Comment: A. Duodenum, biopsy: -Duodenal mucosa with [...] see comment. Performed By: #### S #### [facility] CLIA [id number] [address] [place], [place] [address]FINBUCHANAN [facility] LABNoSaint John's Hospital on above:Order Comment: Specimen Type: TISSUE SPECIMEN Ordering Facility: [facility] Address: [address] [place], [place] [address]Result Comment: Diagnostic interpretation performed at [facility], [address] [place], [place] [address] CLIA# [id number] End Touching Machine Operator: Ramos Strickland M.D.Performed By: #### S #### [facility] CLIA [id number] [address] [place], [place] [address]GROSS DESCRIPTIONNormSancta Maria HospitalComhenry ford hospital on above:Order Comment: Specimen Type: TISSUE SPECIMEN Order[facility] Address: [address] [place], [place] [address]Result Comment: A. Small Bowel, Duodenum, Biopsy Received [...] performed at [facility], [address] [place], [place] [address]Performed By: #### S #### [facility] CLIA [id number] [address] [place] [address] [facility] [address] [facility] HOSPITALUpper GI endoscopyon [id number] GI endoscopySaint Margaret'[facility] Patient Name: Sav Raymundo Procedure Date: 04/28/2024 11:17 AM Date of : 1950 Admit Type: Outpatient Age: 74 Room: [place] [address] Gender: Male Note Status: Finalized Attending MD: Vic Ponce MD, [id number] Procedure: Upper GI endoscopy Indications: Dysphagia, Heartburn, [...] physician, the nurse, the anesthesiologist and the dryer feeder in the procedure room at 11:29 AM. [...] home (ambulatory). Procedure Co (more content not included)...NormalLyman School For BoysNo Panel Informationon 21-39-2468Pexwzcytl ClinicCT ENTEROGRAPHY W IVCONon 49-98-4771LX ENTEROGRAPHY W IVCONNormalTrinity Health System East Campus Small bowel W contrast PO and W contrast Scarlett 33-39-0003AEORYCWBWQ: No active bowel inflammation. Small volume ascites and small right pleural effusion, both increased since 12/20/2023. 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 Plaster And Plastic: [facility]ITALAc Transcribe Date/Time: Apr 22 2024 12:06P Dictated by : MILDRED GRANDA MD This examination was interpreted and the report reviewed and electronically signed by: MILDRED GRANDA MD on Apr 22 2024 12:24PM [facility] DIVISION OF RADIOLOGY* * *Final Report* * * DATE OF EXAM: Apr 22 2024 11:45AM [facility] [place] ENTEROGRAPHY W IVCON / [...] pleural catheter in place. DIVISION OF RADIOLOGYProvider, [facility] [place] - 04/22/2024 * * *Final Report* * * DATE OF EXAM: Apr 22 2024 11:45AM [facility] [place] [facility] CT ENTEROGRAPHY W IVCON / [...] right pleural effusion, both increased since 12/20/2023. 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 [employer]astic: ALONSO Transcribe Date/Time: Apr 22 2024 12:06P Dictated by : MILDRED GRANDA MD This examination was interpreted and the report reviewed and electronically signed by: MILDRED GRANDA MD on Apr 22 2024 12:24PM [facility] HospitalRadiology Study observation (narrative)[facility] Small bowel W contrast PO and W contrast IVOrdered By: Ccf Provider on 04-22-2024 [facility]hillCalprotectin (Stl) [Mass/Mass]on 58-78-5937XQAKUGMCBSGW, FECAL ZJVFAACFISXU59.0 ug/gHighNINF - 50 ug/gCleveland ClinicInterpretation and review of laboratory resultsAbnormalCleveland Trinity Health SystemG. lamblia+Cryptosporidium sp Ag IA Ql (Stl)Ordered By: Bobby Mccallum on 85-22-0661Cwhorkrhltofpjn sp Ag Ql (Stl)NegativeNegativeSelect Medical Specialty Hospital - [facility]-FairhillG. lamblia Ag Ql (Stl)NegativeNegativeSelect Medical Specialty Hospital - [facility]-FairhillInterpretation and review of laboratory resultsNormBrown Memorial Hospital single negative test result does not rule out a parasitic infection. Due to intermittent sheddingof parasites, it is recommended that three specimens collected over a 7 day period are submitted to improve detection sensitivity. [facility] - CantonGastrointestinal pathogens identified BRYN+probe Nom (Stl)Ordered By: Steven Olsen on 96-41-4883Thtmvpgndzrtp sp DNA BRYN+probe Nom (Unsp spec)Not detectedNot DetectedPatillas ClinicInterpretation and review of laboratory resultsNormalCOhioHealth Shelby Hospitalalmonella sp DNA BRYN+probe Ql (Unsp spec)Not detectedNot DetectedSumma Health Barberton Campushiga toxin stx gene BRYN+probe Nom (Unsp spec)Not detectedNot DetectedSumma Health Barberton Campushigella sp DNA BRYN+probe Ql (Unsp spec)Not detectedNot DetectedSelect Medical Specialty Hospital - CantonLaboratory - Microbiology and Antimicrobial susceptibilityon 04-21-2024M. tuberculosis tuberculin stim IFN-g Ql (Bld)NegativeCleveland ClinicNo Panel Informationon 37-68-4642KIZGFMIV INTERPRETATIONNormalNormalCMiami Valley Hospital ELASTASE-1 LEHDZMMABIDOK120 ug/g200 - PINF ug/gCleveland Ely-Bloomenson Community HospitalComhenry ford hospital on above: Interpretation: <100 ug/g: Severe Exocrine Pancreatic Insufficiency 100-199 ug/g: Mild to Moderate Exocrine Pancreatic Insufficiency >=200 ug/g: Normal Interpretation and review of laboratory resultsNormalCUC Medical CenterMitogen minus Nil1.19- PINFCleveland ClinicTB Gamma Interpretation Infection with M. tuberculosis complex is unlikely. If latent tuberculosis infection is highly suspected, a negative result does not rule out the infection. Specimens from immunocompromised patients and those <5 years of age may show false negative results. In case of a contact investigation, please repeat 8-12 weeks after a known exposure.[facility]FairhillTB NilNINFPatillas ClinicTB1 Ag minus NilNINFSelect Medical Specialty Hospital [facility]-FairhillTB2 Ag minus Nil0.00NINFSelect Medical Specialty Hospital - Canton25([place])D3 SerPl-mCncon 66-37-634205360585-vozxqhdrfzadkn D3 [Mass/Vol]36.6 ng/eHRtbinv41.0-80.0[facility] on above: Order Comment: Specimen Type: BLOOD SPECIMENOrdering Facility: [facility] Address:[address] [place], [place] [address]Result Comment: Classification of 25 [place] Vitamin D status:Deficiency/Insufficiency: < or = 30 ng/ml.Sufficiency/Optimal Levels: 31-80 ng/mLToxicity: > 100 ng/mL.Test performed by chemiluminescent immunoassay.Performed By: #### 1989-3 ####[facility] LABCLIA [id number] [place] [address] [place] BPFPHFJ55-xdlvvgapgzeimu D3 [Mass/Vol]on 45-22-7451Tynrjxdleglgkm and review of laboratory resultsNoHolzer Health System The reference range interval was based on an analysis of samples from healthy adults and may not pertain to children from 0-18 years old. [facility] - CantonBLOOD TB SCREENon 04-20-2024M. tuberculosis tuberculin stim IFN-g Ql (Bld)NegativeNormalCCherrington Hospital on above:Order Comment: Specimen Type: BLOOD SPECIMENOrdering Facility: [facility] Address:[address] [place], [place] [address]Performed By: #### INFTBP ####[facility] LABCLIA [id number] [place] [address] [place] OF AMERICAMITOGEN MINUS NIL1.19 IU/mLNormal>=0.50[facility] on above:Order Comment: Specimen Type: BLOOD SPECIMENOrdering Facility: [facility] Address:[address] [place], [place] [address]Performed By: #### INFTBP ####[facility] LABCLIA [id number] [place] [address] [place] OF AMERICATB GAMMA INTERPRETATIONNormal [facility] on above:Order Comment: Specimen Type: BLOOD SPECIMENOrdering Facility: [facility] Address:[address] [place], [place] [address]Performed By: #### INFTBP ####[facility] LABCLIA [id number] [place] [address] [place] OF AMERICATB NIL<0.00Normal<=8.00[facility] on above:Order Comment: Specimen Type: BLOOD SPECIMENOrdering Facility: [facility] Address:[address] [place], [place] [address]Performed By: #### INFTBP ####[facility] LABCLIA [id number] [place] [address] [place] OF AMERICATB1 AG MINUS NIL<0.00Normal<0.35 [facility] on above:Order Comment: Specimen Type: BLOOD SPECIMENOrdering Facility: [facility] Address:[address] [place], [place] [address]Performed By: #### INFTBP ####[facility] LABCLIA [id number] [place] [address] [place] AMERICATB2 AG MINUS NIL0.00 IU/mLNormal<0.35[facility] on above:Order Comment: Specimen Type: BLOOD SPECIMENOrdering Facility: [facility] Address:[address] [place], [place] [address]Performed By: #### INFTBP ####[facility] LABCLIA [id number] [place] [address] [place] AMERICAC diff Tox gens Stl Ql BRYN+probeon 04-20-2024. difficile toxin genes BRYN+probe Ql (Stl)NegativeNormal Negative for C. difficile toxin by PCROhioHealth O'Bleness Hospital on above:Order Comment: Specimen Type: STOOL SPECIMENOrdering Facility: [facility] Address:[address] [place], [place] [address]Performed By: #### 25428-7, 73995-1, PANCEF ####[facility] LABCLIA [id number] [facility] [id number] [place] [address] [place] C. difficile toxin genes BRYN+probe Ql (Stl)on 39-49-7114Zwihtxyggnclpu and review of laboratory resultsNormalCprotestant deaconess hospitaland [facility] W Auto Differential panel (Bld)on 01-42-2204Mwnkvsddg (Bld) [#/Vol]0.04 10*3/uLNINF [facility]-FairhillBasophils/100 WBC (Bld)0.5 %[facility]-FairhillDifferential cell count method Nom (Bld)AutoCleveland ClinicEosinophils (Bld) [#/Vol]NINFCleveland ClinicEosinophils/100 WBC (Bld)0.0 %[facility]-FairhillErythrocyte distribution width (RBC) [Ratio]14.7 %11.5 - 15.0 %[facility]-FairhillHematocrit (Bld) [Volume fraction]38.0 %Low39.0 - 51.0 %[facility]-FairhillHemoglobin (Bld) [Mass/Vol]12.0 g/dLLow13.0 - 17.0 g/dLSelect Medical Specialty Hospital - Cleveland-FairhillImmature granulocytes (Bld) [#/Vol]0.03 10*3/uLNINFSelect Medical Specialty Hospital - Cleveland-FairhillImmature granulocytes/100 WBC (Bld)0.4 %[facility]-FairhillInterpretation and review of laboratory resultsAbnormalCMiami Valley Hospital Lymphocytes (Bld) [#/Vol]0.95 10*3/uLLowSelect Medical Specialty Hospital - Cleveland-FairhillLymphocytes/100 WBC (Bld)11.9 %[facility] HospitalH (RBC) [Entitic mass]30.5 pg26.0 - 34.0 pg [facility] HospitalHC (RBC) [Mass/Vol]31.6 g/dL30.5 - 36.0 g/dLSelect Medical Specialty Hospital [facility] MCV (RBC) [Entitic vol]96.7 fL80.0 - 100.0 fLCMiami Valley HospitalMonocytes (Bld) [#/Vol]1.03 10*3/uLHighNINFSelect Medical Specialty Hospital - Cleveland-FairhillMonocytes/100 WBC (Bld)12.9 % [facility]-FairhillNeutrophils (Bld) [#/Vol]5.91 10*3/uLSelect Medical Specialty Hospital [facility] Neutrophils/100 WBC (Bld)74.3 %[facility]-FairhillNucleated RBC (Bld) [#/Vol]NINF [facility]-FairhillNucleated RBC/100 WBC (Bld) [Ratio]0.0 %/100 WBCSelect Medical Specialty Hospital - [facility]-Fairhill Platelet mean volume (Bld) [Entitic vol]11.1 fL9.0 - 12.7 [facility] Platelets (Bld) [#/Vol]267 10*3/uLSelect Medical Specialty Hospital - Cleveland-FairhillRBC (Bld) [#/Vol]3.93 10*6/uL Low4.20 - 6.00 m/[facility]. Charles HospitalWBC (Bld) [#/Vol]7.96 10*3/uLMount Carmel Health System ClinicBasophils (Bld) [#/Vol]0.04 10*3/uLNormal<0.11CCherrington Hospital on above:Order Comment: Specimen Type: BLOOD SPECIMENOrdering Facility: [facility] Address:[address] [place], [place] [address]Performed By: #### 13846-3 ####[facility] LABCLIA [id number] [place] [address] [place] Basophils/100 WBC (Bld)0.5 %NormalOhioHealth O'Bleness Hospital on above: Order Comment: Specimen Type: BLOOD SPECIMENOrdering Facility: [facility] Address:[address] [place], [place] [address]Performed By: #### 85900- 8 ####[facility] LABCLIA [id number] [place] [address] [place] AMERICADifferential cell count method Nom (Bld)AutoNormalCCherrington Hospital on above:Order Comment: Specimen Type: BLOOD SPECIMENOrdering Facility: [facility] Address:[address] [place], [place] [address]Performed By: #### 85786-6 ####[facility] LABCLIA [id number] [place] [address] [place] AMERICAEosinophils (Bld) [#/Vol]10*3/uL Normal<0.46[facility] on above:Order Comment: Specimen Type: BLOOD SPECIMENOrdering Facility: [facility] Address:[address] [place], [place] [address]Performed By: #### 14467-2 ####[facility] LABCLIA [id number] [place] [address] [place] AMERICAEosinophils/100 WBC (Bld)0.0 %NormalOhioHealth O'Bleness Hospital on above:Order Comment: Specimen Type: BLOOD SPECIMENOrdering Facility: [facility] Address:[address] [place], [place] [address]Performed By: #### 36752-0 ####[facility] LABCLIA [id number] [place] [address] [place] Erythrocyte distribution width (RBC) [Ratio]14.7 %Dacqwv54.5-15.0[facility] on above:Order Comment: Specimen Type: BLOOD SPECIMENOrdering Facility: [facility] Address:[address] [place], [place] [address]Performed By: #### 64226-0 ####[facility] LABCLIA [id number] [place] [address] [place] AMERICAHematocrit (Bld) [Volume fraction]38.0 %Low39.0-51.0[facility] on above:Order Comment: Specimen Type: BLOOD SPECIMENOrdering Facility: [facility] Address:[address] [place], [place] [address]Performed By: #### 88774-0 ####[facility] LABIA [id number] [place] [address] [place] Hemoglobin (Bld) [Mass/Vol]12.0 g/dLLow13.0-17.0[facility] Comment on above:Order Comment: Specimen Type: BLOOD SPECIMENOrdering Facility: [facility] Address:[address] [place] [address] Performed By: #### 78576-7 ####[facility] LABPROCTOR [facility] [id number] [place] [address] [place] Immature granulocytes (Bld) [#/Vol]0.03 10*3/uLNormal<0.10[facility] on above:Order Comment: Specimen Type: BLOOD SPECIMENOrdering Facility: [facility] Address:[address] [place], [place] [address]Performed By: #### 74768-5 ####[facility] LABIA [id number] [place] [address] [place] Immature granulocytes/100 WBC (Bld)0.4 %NormalOhioHealth O'Bleness Hospital on above:Order Comment: Specimen Type: BLOOD SPECIMENOrdering Facility: [facility] Address:[address] [place] [address] Performed By: #### 33250-6 ####[facility] LABIA [id number] [place] [address] [place] Lymphocytes (Bld) [#/Vol]0.95 10*3/uLLow1.00-4.00[facility] Comment on above:Order Comment: Specimen Type: BLOOD SPECIMENOrdering Facility: [facility] Address:[address] [place] [address] Performed By: #### 49189-5 ####[facility] LABCLIA [id number] [address] [place] Lymphocytes/100 WBC (Bld)11.9 %NormalOhioHealth O'Bleness Hospital on above: Order Comment: Specimen Type: BLOOD SPECIMENOrdering Facility: [facility] Address:[address] [place], [place] [address]Performed By: #### 70093- 8 ####[facility] LABIA [id number] [address] (RBC) [Entitic mass]30.5 pg Gueajz79.0-34.0Mercy Hospitalment on above:Order Comment: Specimen Type: BLOOD SPECIMENOrdering Facility: [facility] Address:[address] [place], [place] [address]Performed By: #### 84396-6 ####[facility] LABIA [id number] [address]HC (RBC) [Mass/Vol]31.6 g/dL Utmqgs69.5-36.0[facility] on above:Order Comment: Specimen Type: BLOOD SPECIMENOrdering Facility: [facility] Address:[address] [place], [place] [address]Performed By: #### 36447-4 ####[facility] LABIA [id number] [address] (RBC) [Entitic vol]96.7 fL Cszdqb45.0-100.0[facility] on above:Order Comment: Specimen Type: BLOOD SPECIMENOrdering Facility: [facility] Address:[address] [place], [place] [address]Performed By: #### 24345-5 ####[facility] LABCLIA [id number] [place] [address] [place] AMERICAMonocytes (Bld) [#/Vol]1.03 10*3/uLHigh<0.87[facility] on above:Order Comment: Specimen Type: BLOOD SPECIMENOrdering Facility: [facility] Address:[address] [place], [place] [address]Performed By: #### 01855-5 ####[facility] LABCLIA [id number] [place] [address] [place] AMERICAMonocytes/100 WBC (Bld)12.9 % NormalOhioHealth O'Bleness Hospital on above:Order Comment: Specimen Type: BLOOD SPECIMENOrdering Facility: [facility] Address:[address] [place], [place] [address]Performed By: #### 87340-4 ####[facility] LABIA [id number] [place] [address] [place] AMERICANeutrophils (Bld) [#/Vol]5.91 10*3/uLNormal1.45-7.50[facility] on above:Order Comment: Specimen Type: BLOOD SPECIMENOrdering Facility: [facility] Address:[address] [place], [place] [address]Performed By: #### 10116-1 ####[facility] LABCLIA [id number] [place] [address] [place] AMERICANeutrophils/100 WBC (Bld)74.3 %NormalOhioHealth O'Bleness Hospital on above:Order Comment: Specimen Type: BLOOD SPECIMENOrdering Facility: [facility] Address:[address] [place] [address] Performed By: #### 72942-7 ####[facility] LABCLIA [id number] [place] [address] [place] Nucleated RBC (Bld) [#/Vol]10*3/uLNormal<0.01[facility] on above:Order Comment: Specimen Type: BLOOD SPECIMENOrdering Facility: [facility] Address:[address] [place] [address] Performed By: #### 90138-7 ####[facility] LABIA [id number] [place] [address] [place] Nucleated RBC/100 WBC (Bld) [Ratio]0.0 /100 WBCNormalCKindred Hospital Lima Comment on above:Order Comment: Specimen Type: BLOOD SPECIMENOrdering Facility: [facility] Address:[address] [place] [address] Performed By: #### 78194-5 ####[facility] LABIA [id number] [place] [address] [place] Platelet mean volume (Bld) [Entitic vol]11.1 fLNormal9.0-12.7CCherrington Hospital on above:Order Comment: Specimen Type: BLOOD SPECIMENOrdering Facility: [facility] Address:[address] [place], [place] [address]Performed By: #### 63113-3 ####[facility] LABIA [id number] [place] [address] [place] Platelets (Bld) [#/Vol]267 10*3/cMUgumcc647-718YgvgyrwlhOhioHealth O'Bleness Hospital on above:Order Comment: Specimen Type: BLOOD SPECIMENOrdering Facility: [facility] Address:[address] [place] [address] Performed By: #### 85198-3 ####[facility] LABIA [id number] [place] [address] [place] RBC (Bld) [#/Vol]3.93 10*6/uLLow4.20-6.00[facility] on above:Order Comment: Specimen Type: BLOOD SPECIMENOrdering Facility: [facility] Address:[address] [place], [place] [address]Performed By: #### 61487-0 ####[facility] LABCLIA [id number] [place] [address] [place] AMERICAWBC (Bld) [#/Vol]7.96 10*3/uLNormal3.70-11.00[facility] on above:Order Comment: Specimen Type: BLOOD SPECIMENOrdering Facility: [facility] Address:[address] [place], [place] [address]Performed By: #### 39517-9 ####[facility] LABCLIA [id number] [address] WISE STREETCELIAC SCREENon 72-88-0914MUIHH DEAMIDATED IGA QUALNegativeNormalNegative, Test not IndicatedOhioHealth O'Bleness Hospital on above:Order Comment: Specimen Type: BLOOD SPECIMENOrdering Facility: [facility] Address:[address] [place], [place] [address]Result Comment: This is used as an aid in diagnosis of celiac disease. Clinical correlation is required.The following results were obtained with an [employer] Lite Gliadin IgA SALBADOR Gliadin. Gliadin IgA values obtained with different manufacturers' assay methods may not be used interchangeably. The magnitude of the reported IgA levels cannot be correlated to an endpoint titer. Performed By: #### [id number] ####[facility] LABCLIA [id number] [address] [place] Gliadin peptide IgA Qn (S)4 UnitsNormal<20[facility] on above:Order Comment: Specimen Type: BLOOD SPECIMENOrdering Facility: [facility] Address:[address] [place], [place] [address]Performed By: #### [id number] ####[facility] LABCLIA [id number] [address] STATES OF AMERICAINTERPRETATIONNo serological evidence of celiac disease, however, if celiac disease is clinically suspected and patient is not on gluten-free diet, histological diagnosis may be considered. HLA testing may help with risk assessment.NormalOhioHealth O'Bleness Hospital on above:Order Comment: Specimen Type: BLOOD SPECIMENOrdering Facility: [facility] Address:[address] [place], [place] [address]Performed By: #### [id number] ####[facility] LABCLIA [id number] [place] [address] [place] TRANSGLUTAMINASE IGA ABS INTERPRETATIONNegativeNormalNegativeOhioHealth O'[facility] on above:Order Comment: Specimen Type: BLOOD SPECIMENOrdering Facility: [facility] Address:[address] [place], [place] [address]Result Comment: The following results were obtained with Clear Books[employer]roid[employer]e R h-tTG IgA SALBADOR.???R h-tTG IgA values obtained with different manufacturers' assay methods may not be used interchangeably. The magnitude of the reported IgA levels cannot be corelated to an endpoint???concentration.This is used as an aid in diagnosis of celiac disease. Clinical correlation is required.Performed By: #### [id number] ####[facility] LABCLIA [id number] [place] [address] [place] AMERICAtTG IgA Qn (S)<2Normal <4ClevelKindred Healthcare on above:Order Comment: Specimen Type: BLOOD SPECIMENOrdering Facility: [facility] Address:[address] [place], [place] [address]Performed By: #### [id number] ####[facility] LABCLIA [id number] [place] [address] [place] AMERICACRP SerPl-mCncon 76-59-9819TFA [Mass/Vol]8.4 mg/dLHigh<0.9ClevelKindred Healthcare on above:Order Comment: Specimen Type: BLOOD SPECIMENOrdering Facility: [facility] Address:[address] [place], [place] [address]Performed By: #### 1988-5, 14316-6, 3034-6, 16155-7 ####[facility] LABCLIA [id number] [place] [address] [place] AMERICACalprotectin (Stl) [Mass/Mass]on 03-29-0047JKIXKVDCUQQR, FECAL DMVJTTGVXVTB27.0 ug/gHigh<50[facility] Health SystemComment on above:Order Comment: Specimen Type: STOOL SPECIMENOrdering Facility: [facility] Address:[address] [place], [place] [address]Performed By: #### 13883-1, 57329-3, PANCEF ####[facility] LABCLIA [id number] [address] [place] AMERICACobalamin (Vitamin B12) [Mass/Vol]on 48-12-7987Jopflazxfqrzhd and review of laboratory resultsAbnormalCleveland [facility] System Comprehensive metabolic 2000 panelon 05-81-0590Boddjim [Mass/Vol]3.8 g/dLLow3.9 - 4.9 g/dLPatillas ClinicALP [Catalytic activity/Vol]141 U/LHigh38 - 113 U/L [facility] ClinicALT [Catalytic activity/Vol]14 U/L10 - 54 U/LCMiami Valley Hospital Anion gap [Moles/Vol]15 mmol/L8 - 15 mmol/LCleveland ClinicAST [Catalytic activity/Vol]27 U/L14 - 40 U/LCleveland [facility]enson Community HospitalBilirubin [Mass/Vol]0.9 mg/dL0.2 - 1.3 mg/dLPatillas ClinicCalcium [Mass/Vol]9.1 mg/dL8.5 - 10.2 mg/dLSelect Medical [facility] Hospital [facility]-FairhillChloride [Moles/Vol]101 mmol/L98 - 107 mmol/LCleveland ClinicCO2 [Moles/Vol]24 mmol/L22 - 30 mmol/LCleveland ClinicCreatinine [Mass/Vol]1.23 mg/dLHigh0.73 - 1.22 mg/dLSelect Medical Specialty Hospital - Cleveland-FairhillGFR/1.73 sq M.predicted among non- blacks MDRD (S/P/Bld) [Vol rate/Area]62 mL/min/{1.73_m2}- PINMer[facility] Health [facility] Comment on above:Estimated Glomerular Filtration Rate [...] not accurately reflect actual GFR.Glucose [Mass/Vol] 105 mg/xPNhdo29 - 99 mg/dLOhio State East Hospitalment on above:[place] Diabetes Association (ADA) provides guidance for cutoff [...] Standards of Medical Care in Diabetes 2016, [place] Diabetes Association. Diabetes Care. 2016.39(Suppl 1). Potassium [Moles/Vol]3.9 mmol/L3.7 - 5.1 mmol/LCleveland ClinicProtein [Mass/Vol]7.2 g/dL6.3 - 8.0 g/dLPatillas ClinicSodium [Moles/Vol]140 mmol/L136 - 144 mmol/LCleveland ClinicUrea nitrogen [Mass/Vol]15 mg/dL9 - 24 mg/dL [facility]illas ClinicAlbumin [Mass/Vol]3.8 g/dLLow3.9-4.9[facility] Comment on above:Order Comment: Specimen Type: BLOOD SPECIMENOrdering Facility: [facility] Address:[address] [place] [address] Performed By: #### 1988-5, 93976-9, 3034-6, 31481-8 ####[facility] LABCLIA [id number] [place] [address] [address] [place] AMERICAALP [Catalytic activity/Vol]141 U/DCkyp32-581BqdbrepsgMount Carmel Health SystemComment on above:Order Comment: Specimen Type: BLOOD SPECIMENOrdering Facility: [facility] Address:[address] [place], [place] [address]Performed By: #### 1987-10, , 3033-11, ####[facility] LABCLIA [id number] [place] [address] [place] AMERICAALT [Catalytic activity/Vol]14 U/ZNhqsll72-74YkpjiwfvjMount Carmel Health SystemComhenry ford hospital on above:Order Comment: Specimen Type: BLOOD SPECIMENOrdering Facility: [facility] Address:[address] [place], [place] [address]Performed By: #### 1987-10, , 3033-11, ####[facility] LABCLIA [id number] [place] [address] [place] AMERICAAnion gap [Moles/Vol]15 mmol/L Normal8-15[facility] Carm[facility] Health SystemComhenry ford hospital on above:Order Comment: Specimen Type: BLOOD SPECIMENOrdering Facility: [facility] Address:[address] [place], [place] [address]Performed By: #### 1987-10, , 3033-11, ####[facility] LABCLIA [id number] [place] [address] [place] AMERICAAST [Catalytic activity/Vol]27 U/BGvnism23-05OcmoyqxjjMount Carmel Health SystemComhenry ford hospital on above:Order Comment: Specimen Type: BLOOD SPECIMENOrdering Facility: [facility] Address:[address] [place], [place] [address]Performed By: #### , , 3033-11, ####[facility] LABCLIA [id number] [place] [address] [place] Bilirubin [Mass/Vol]0.9 mg/dLNormal0.2-1.3CKindred Hospital LimaComhenry ford hospital on above:Order Comment: Specimen Type: BLOOD SPECIMENOrdering Facility: [facility] Address:[address] [place], [place] [address]Performed By: #### 1987-10, , 3033-11, 35310-8 ####[facility] LABCLIA [id number] [place] [address] [place] Calcium [Mass/Vol]9.1 mg/dLNormal8.5-10.2CCherrington Hospital on above:Order Comment: Specimen Type: BLOOD SPECIMENOrdering Facility: [facility] Address:[address] [place], [place] [address]Performed By: #### 1987-10, , 3033-11, ####[facility] LABCLIA [id number] [place] [address] [place] Chloride [Moles/Vol]101 mmol/BStodli45-296ZqsphcdstOhioHealth O'Blen[facility] on above:Order Comment: Specimen Type: BLOOD SPECIMENOrdering Facility: [facility] Address:[address] [place], [place] [address]Performed By: #### 1987-10, , 3033-11, ####[facility] LABCLIA [id number] [place] [address] [place] CO2 [Moles/Vol]24 mmol/HHlrlna67-17VaqdevntoOhioHealth O'Bleness Hospital on above: Order Comment: Specimen Type: BLOOD SPECIMENOrdering Facility: [facility] Address:[address] [place], [place] [address]Performed By: #### , , 3033-11, ####[facility] LABCLIA [id number] [place] [address] [place] Creatinine [Mass/Vol]1.23 mg/dLHigh0.73-1.22[facility] on above:Order Comment: Specimen Type: BLOOD SPECIMENOrdering Facility: [facility] Address:[address] [place], [place] [address]Performed By: #### 1987-5, 44638-1, 4-6, 76663-1 ####[facility] LABIA [id number] [place] [address] [place] Creatinine and Glomerular filtration rate.predicted panel (S/P/Bld)62 mL/min/1.73m???Normal>=60[facility] on above:Order Comment: Specimen Type: BLOOD SPECIMENOrdering Facility: [facility] Address:[address] [place], [place] [address]Result Comment: Estimated Glomerular Filtration Rate (eGFR) is [...] accurately reflect actual GFR.Performed By: #### 1987-10, 41681-6, 3033-6, 26586-6 ####[facility] LABIA [id number] [place] [address] [place] AMERICAGlucose [Mass/Vol]105 mg/cIJmkc63-39UjcbokgdmOhioHealth O'Bleness Hospital on above:Order Comment: Specimen Type: BLOOD SPECIMENOrdering Facility: [facility] Address:[address] [place], [place] [address]Result Comment: The [place] Diabetes Association (ADA) provides guidance for cutoff [...] Standards of Medical Care in Diabetes 2016, [place] [employer] Association. Diabetes Care. 2016.39(Suppl 1). Performed By: #### 1987-10, , 3033-11, ####[facility] LABCLIA [id number] [place] [id number] [place] AMERICAPotassium [Moles/Vol]3.9 mmol/LNormal3.7-5.1CCherrington Hospital on above:Order Comment: Specimen Type: BLOOD SPECIMENOrdering Facility: [facility] HOSPITAL Address:[address] [place], [place] [address]Performed By: #### 1987-10, , 3033-11, ####[facility] LABIA [id number] [place] [address] [place] AMERICAProtein [Mass/Vol]7.2 g/dLNormal6.3-8.0[facility] on above:Order Comment: Specimen Type: BLOOD SPECIMENOrdering Facility: [facility] Address:[address] [place], [place] [address]Performed By: #### 1987-10, , 3033-11, ####[facility] LABIA [id number] [place] [id number] [place] OF AMERICASodium [Moles/Vol]140 mmol/HGqnepz101-469UdjhydjfeOhioHealth O'Bleness Hospital on above:Order Comment: Specimen Type: BLOOD SPECIMENOrdering Facility: [facility] Address:[address] [place], [place] [id number] By: #### 1987-10, , 3033-11, ####[facility] LABIA [id number] [place] [address] [place] AMERICAUrea nitrogen [Mass/Vol]15 mg/dL Normal9-24[facility] on above:Order Comment: Specimen Type: BLOOD SPECIMENOrdering Facility: [facility] Address:[address] [place], [place] [id number] By: #### 1987-10, 15798-3, 3034-6, 61985-6 ####[facility] LABIA [id number] [place] [address] [place] AMERICAG lamblia+Cryptosp Ag Stl Ql IAon 04-20-2024G. lamblia+Cryptosporidium sp Ag IA Ql (Stl) CRYPTOSPORIDIUM ANTIGEN BY EIA: Negative for Cryptosporidium by EIA. GIARDIA ANTIGEN BY EIA: Negative for Giardia lamblia by EIA.NormalOhioHealth O'Bleness Hospital on above:Performed By: #### 85700-5, 25113-5 ####[facility] LABIA [id number] [place] [address] [place] OF AMERICAGastrointestinal pathogens identified BRYN+probe Nom (Stl)on 04-20-2024 Campylobacter sp DNA BRYN+probe Nom (Unsp spec)Not detectedNormalNot Detected [facility] on above:Order Comment: Specimen Type: STOOL SPECIMENOrdering Facility: [facility] Address:[address] [place], [place] [address]Performed By: #### 23572-8, 84191-9 ####[facility] LABIA [id number] [place] [address] [place] AMERICASalmonella sp DNA BRYN+probe Ql (Unsp spec)Not detectedNormalNot DetectedOhioHealth O'B[facility] on above:Order Comment: Specimen Type: STOOL SPECIMENOrdering Facility: [facility] Address:[address] [place], [place] [address]Performed By: #### 98078-3, 52200-4 ####[facility] LABIA [id number] STATES OF AMERICAShiga toxin stx gene BRYN+probe Nom (Unsp spec)Not detectedNormalNot DetectedOhioHealth O'[facility] on above:Order Comment: Specimen Type: STOOL SPECIMENOrdering Facility: [facility] Address:[address] [place], [place] [address]Performed By: #### 62347- 1, 97112-6 ####[facility] LABCLIA [id number] [place] [address] [place] AMERICAShigella sp DNA BRYN+probe Ql (Unsp spec)Not detectedNormalNot DetectedMount Carmel Health System Comment on above:Order Comment: Specimen Type: STOOL SPECIMENOrdering Facility: [facility] Address:[address] [place] [address] Performed By: #### 47940-1, 93487-1 ####[facility] [id number] [place] [address] [place] HBV surface Ag Ql (S)on 79-77-6750Jybjntpindrmma and review of laboratory resultsNormalClevelOhioHealth Mansfield HospitalHBV surface Ag Ser Qlon 04-20-2024 HBV surface Ag Ql (S)NegativeNormalNegativeMount Carmel Health SystemComment on above:Order Comment: Specimen Type: BLOOD SPECIMENOrdering Facility: [facility] Address:[address] [place], [place] [address]Performed By: #### 5195-3 ####[facility] [id number] [place] [address] [place] OF AMERICAIgA SerPl-mCncon 95-22-7272BlT [Mass/Vol]282 mg/iFHktisl78-862QqjihqzlxMount Carmel Health SystemComment on above:Order Comment: Specimen Type: BLOOD SPECIMENOrdering Facility: [facility] Address:[address] [place] [address] Performed By: #### 2458-8 ####[facility] [id number] [place] [address] [place] Iron and Iron binding capacity panelon 45-48-2564Ftjk [Mass/Vol]26 ug/dLLow41 - 186 ug/dLSelect Medical Specialty Hospital - Cleveland-FairhillIron binding capacity [Mass/Vol]256 ug/dL232 - 386 ug/dLSelect Medical Specialty Hospital - Cleveland-FairhillIron/TIBC [Molar ratio]10.2 %Low15.0 - 57.0 %[facility]-FairhillIron [Mass/Vol]26 ug/cREkp76-300HucusmouxMount Carmel Health SystemComment on above:Order Comment: Specimen Type: BLOOD SPECIMENOrdering Facility: [facility] Address:[address] [place], [place] [address]Performed By: #### 1987-10, , 3033-11, 25964-9 ####[facility] LABCLIA [id number] [place] [address] [place] Iron binding capacity [Mass/Vol]256 ug/vFMxxsvz819-876FqpizoxtqMount Carmel Health System Comment on above:Order Comment: Specimen Type: BLOOD SPECIMENOrdering Facility: [facility] Address:[address] [place] [address] Performed By: #### 1987-10, , 3033-11, 56557-8 ####[facility] LABCLIA [id number]ETIron/TIBC [Molar ratio]10.2 %Low15.0-57.0Mount Carmel Health SystemComhenry ford hospital on above:Order Comment: Specimen Type: BLOOD SPECIMENOrdering Facility: [facility] Address:[address] [place], [place] [address]Performed By: #### 1987-10, , 3033-11, 41298-8 ####[facility] LABCLIA [id number] [address] [address] [place] OF AMERICALaboratory - Chemistry and Chemistry - challengeon 40-05-3093WBU [Mass/Vol]8.4 mg/dLHighNINF - 0.9 mg/dLSelect Medical Specialty Hospital - Cleveland-FairhillTransferrin [Mass/Vol]209 mg/dL200 - 360 mg/dLSelect Medical Specialty Hospital - Cleveland-FairhillOvlsdi50-flcbnojcxjkghu D3 [Mass/Vol]36.6 ng/mL31.0 - 80.0 ng/mLClevelunc health ClinicComment on above: Classification of 25 [place] Vitamin D status: Deficiency/Insufficiency: < or = 30 ng/ml. Sufficiency/Optimal Levels: 31-80 ng/mL Toxicity: > 100 ng/mL. Test performed by chemiluminescent immunoassay. Cobalamin (Vitamin B12) [Mass/Vol]1458 pg/fTMrgo601 - 1245 pg/mLCMiami Valley Hospital Laboratory - Microbiology and Antimicrobial susceptibilityon 04-20-2024. difficile toxin genes BRYN+probe Ql (Stl)NegativeNegative for C. difficile toxin by PCRSelect Medical Specialty Hospital - Cleveland-FairhillHBV surface Ag Ql (S)NegativeNegativeSelect Medical Specialty Hospital - Cleveland-FairhillNo Panel Informationon 38-29-3047Dbrrfgqrkaoufw and review of laboratory results AbnormalSelect Medical Specialty Hospital - CantonPAN ELASTASE, FECALon 04-20-2024 ELASTASE INTERPRETATIONNormalNormalNormalClevelKindred Healthcare on above:Order Comment: Specimen Type: STOOL SPECIMENOrdering Facility: [facility] Address:[address] [place], [place] [address]Performed By: #### 58859-4, 49077-7, PANCEF ####[facility] LABIA [id number] [address] [place] ELASTASE-1 AFIGVLMRPSJGT671 ug/gNormal>=200[facility] on above:Order Comment: Specimen Type: STOOL SPECIMENOrdering Facility: [facility] Address:[address] [place], [place] [address]Result Comment: Interpretation:<100 ug/g: Severe Exocrine Pancreatic Vzxoznriscbwq968-926 ug/g: Mild to Moderate Exocrine Pancreatic Insufficiency>=200 ug/g: NormalPerformed By: #### 53411-4, 17531-7, PANCEF ####[facility] LABIA [id number], [place] [address] [place] Transferrin SerPl-mCncon 43-73-9610Idczqduviok [Mass/Vol]209 mg/tGAadzqs947-217 [facility] on above:Order Comment: Specimen Type: BLOOD SPECIMENOrdering Facility: [facility] Address:[address] [place], [place] [address]Performed By: #### 1988-5, 75445-4, 3034-6, 85917-5 ####[facility] LABCLIA [id number] [facility] [id number] V[place] [address] [place] OF AMERICATransferrin [Mass/Vol]on 41-70-3211Pnjxonkflnzlon and review of laboratory resultsNoHolzer Health System Vit B12 SerPl-mCncon 00-18-8769Bhtysmdnk (Vitamin B12) [Mass/Vol]1458 pg/mLHigh 232-1245CKindred Hospital LimaComhenry ford hospital on above:Order Comment: Specimen Type: BLOOD SPECIMENOrdering Facility: [facility] Address:[address] [place], [place] [address]Performed By: #### 2132-9 ####[facility] LABIA [id number] [place] [id number] [facility] DOTHANANA BY IFA SCREENOrdered By: Nathaly Black on 03-31-2024 Interpretation and review of laboratory resultsNormBrecksville VA / Crille HospitalNuclear Ab Ql (S)NegativeNegativeSelect Medical Specialty Hospital - [facility] [place] on above:Anti-nuclear antibody test is used as an aid in diagnosis of systemic autoimmune diseases. Where pos itive and clinically warranted, follow-up using disease-specific testing is recommended. Low positive titers are not uncommon with advanced age, certain chronic infections, and malignancies among others. Test methodology: Indirect fluorescence immunoassay (IFA) using HEp-2 cells. [facility] NEUTRO CYTO ABon 55-64-8468Srccstrxlwvzlc (ANCA)Equivocal staining seen on the ethanol (indirect immunofluorescence screen) slide but negative results on follow up confirmatory testing. Anti-nuclear antibody test may be considered. Clinical correlation is required.[facility] Myeloperoxidase Ab Qn (S)NINMercy Health Tiffin HospitalNeutrophil cytoplasmic Ab.classic IF Ql (S)NegativeNegativeSelect Medical Specialty Hospital - Cleveland-FairhillNeutrophil cytoplasmic Ab.perinuclear IF Ql (S)NegativeNegativeSelect Medical Specialty Hospital - Cleveland-FairhillProteinase 3 Ab Qn (S)NINFCleveland ClinicStaff Review (ANCA)Reviewed by Sundar Hilario MD, PhDSelect Medical Specialty Hospital - Cleveland-FairhillThis test is used as an aid in diagnosis of patients with autoimmune vasculitides. The final interpretation should be done in conjunction with ANCA test results and clinical correlation. [facility] - CantonBLOOD TB SCREENon 03-31-2024M. tuberculosis tuberculin stim IFN-g Ql (Bld)NegativeSelect Medical Specialty Hospital - Cleveland-FairhillMitogen minus Nil1.71- PINFCleveland Ely-Bloomenson Community HospitalTB Gamma InterpretationInfection with M. tuberculosis complex is unlikely. If latent tuberculosis infection is highly suspected, a negative result does not rule out the infection. Specimens from immunocompromised patients and those <5 years of age may show false negative results. In case of a contact investigation, please repeat 8-12 weeks after a known exposure.[facility]-FairhillTB Nil0.00NINFSelect Medical Specialty Hospital - Cleveland-FairhillTB1 Ag minus Nil NINFCleveland Ely-Bloomenson Community HospitalTB2 Ag minus Nil0.00NINFSelect Medical Specialty Hospital - Canton CRITHIDIA LUCILIAEOrdered By: Sherie Vásquez on 00-27-0955EID double strand Ab IF Crithidia luciliae Ql (S)NegativeNegativeSelect Medical Specialty Hospital - Cleveland-FairhillComment on above: Crithidia luciliae assay is used as an aid in diagnosis of systemic lupus erythematosus (SLE). A negative result cannot rule out SLE. Low positive titers may be seen with other systemic autoimmune diseases. Clinical correlation is required.DNA double strand Ab IF Crithidia luciliae Ql (S)Ordered By: Sherie Vásquez on 64-78-4718Zhzjnssyajgali and review of laboratory resultsNormal [facility]-REACTIVE PROTEINon 38-62-8609GOM [Mass/Vol]2.1 mg/dLHighNINF - 0.9 mg/dLSelect Medical Specialty Hospital - Cleveland-FairhillC3 COMPLEMENTon 66-61-4016Ndzqlrougi C3 [Mass/Vol]168 mg/vYDajt35 - 166 mg/dLSelect Medical Specialty Hospital - Cleveland-FairhillC4 COMPLEMENTon 74-75-6852Hwfgepzzsn C4 [Mass/Vol]42 mg/dL13 - 46 mg/dLTrinity Health System West Campus W Auto Differential panel (Bld)on 34-91-7598Ojicdprue (Bld) [#/Vol]0.04 10*3/uL NINFCleveland ClinicBasophils/100 WBC (Bld)0.6 %[facility]-FairhillDifferential cell count method Nom (Bld)AutoCleveland ClinicEosinophils (Bld) [#/Vol]NINF [facility]-FairhillEosinophils/100 WBC (Bld)0.0 %[facility] Cleveland-FairhillErythrocyte distribution width (RBC) [Ratio]15.6 %High11.5 - 15.0 %[facility] Hematocrit (Bld) [Volume fraction]38.4 %Low39.0 - 51.0 %[facility] Hemoglobin (Bld) [Mass/Vol]11.9 g/dLLow13.0 - 17.0 g/dLSelect Medical Specialty Hospital - Cleveland-FairhillImmature granulocytes (Bld) [#/Vol]NINFClevelBlanchard Valley Health SystemImmature granulocytes/100 WBC (Bld)0.3 %[facility]-FairhillInterpretation and review of laboratory results AbnormalSelect Medical Specialty Hospital - Cleveland-FairhillLymphocytes (Bld) [#/Vol]1.21 10*3/[facility] Lymphocytes/100 WBC (Bld)17.7 %[facility] HospitalH (RBC) [Entitic mass]29.7 pg 26.0 - 34.0 pgCCleveland Clinic Akron GeneralHC (RBC) [Mass/Vol]31.0 g/dL30.5 - 36.0 g/dL [facility] HospitalV (RBC) [Entitic vol]95.8 fL80.0 - 100.0 fLCMiami Valley Hospital Monocytes (Bld) [#/Vol]0.80 10*3/NINFSelect Medical Specialty Hospital - Cleveland-FairhillMonocytes/100 WBC (Bld) 11.7 %[facility]-FairhillNeutrophils (Bld) [#/Vol]4.77 10*3/[facility] Neutrophils/100 WBC (Bld)69.7 %[facility]-FairhillNucleated RBC (Bld) [#/Vol]NINF [facility]-FairhillNucleated RBC/100 WBC (Bld) [Ratio]0.0 %/100 WBCSelect Medical Specialty Hospital - [place]-Fairhill Platelet mean volume (Bld) [Entitic vol]10.7 fL9.0 - 12.7 fLCMiami Valley Hospital Platelets (Bld) [#/Vol]243 10*3/St. Charles HospitalRBC (Bld) [#/Vol]4.01 10*6/uL Low4.20 - 6.00 m/[facility]. Charles HospitalWBC (Bld) [#/Vol]6.84 10*3/[facility] Medical CenterCK [Catalytic activity/Vol]on 85-64-7998Fubbqewadyklig and review of laboratory resultsNormalClevelOhioHealth Mansfield HospitalCREATINE KINASE/CKon 54-83-2191VB [Catalytic activity/Vol]56 U/L51 - 298 U/LCleveland ClinicComplement C4 [Mass/Vol]on 97-51-9251Xrjzlkoxxjiyrj and review of laboratory resultsNormalCSelect Medical Specialty Hospital - Cleveland-Fairhillprehensive metabolic 2000 panelon 74-29-1652Xumypii [Mass/Vol]4.1 g/dL3.9 - 4.9 g/dLPatillas ClinicALP [Catalytic activity/Vol]121 U/LHigh38 - 113 U/LCleveland ClinicALT [Catalytic activity/Vol]13 U/L10 - 54 U/LCleveland ClinicAnion gap [Moles/Vol]10 mmol/L8 - 15 mmol/LCleveland ClinicAST [Catalytic activity/Vol]22 U/L14 - 40 U/LCleveland ClinicBilirubin [Mass/Vol]0.7 mg/dL0.2 - 1.3 mg/dLPatillas ClinicCalcium [Mass/Vol]9.0 mg/dL8.5 - 10.2 mg/dLPatillas ClinicChloride [Moles/Vol]105 mmol/L98 - 107 mmol/LCleveland ClinicCO2 [Moles/Vol]27 mmol/L22 - 30 mmol/L [facility]-FairhillCreatinine [Mass/Vol]1.26 mg/dLHigh0.73 - 1.22 mg/dLPatillas ClinicGFR/1.73 sq M.predicted among non-blacks MDRD (S/P/Bld) [Vol rate/Area]60 mL/min/{1.73_m2}- PINMercy Health Tiffin HospitalComment on above:Estimated Glomerular Filtration Rate (eGFR) [...] [Mass/Vol]95 mg/dL74 - 99 mg/dL [facility] Cleveland-FairhillComment on above:The [place] Diabetes Association (ADA) provides guidance for cutoff [...] Standards of Medical Care in Diabetes 2016, [place] Diabetes Association. Diabetes Care. 2016.39(Suppl 1). Potassium [Moles/Vol]4.1 mmol/L3.7 - 5.1 mmol/LCleveland ClinicProtein [Mass/Vol]7.0 g/dL6.3 - 8.0 g/dLCleveland ClinicSodium [Moles/Vol]142 mmol/L136 - 144 mmol/LCleveland ClinicUrea nitrogen [Mass/Vol]17 mg/dL9 - 24 mg/dL [facility]-FairhillNo Panel Informationon 26-17-7971Wfbafuiywppdpl and review of laboratory resultsAbnormalClevelReplaced by [facility] Anson ClinicPROTEIN / CREATININE RATIOon 30-64-4501Ngxerfz/Creatinine (U) [Mass ratio]0.17 mg/mgHighNINF - 0.15 mg/mgSelect Medical Specialty Hospital - Cleveland-FairhillComment on above:Adult Proteinuria Categories: <0.15 mg/mg is considered normal to mildly increased 0.15 - 0.50 mg/mg is considered moderately increased >0.50 mg/mg is considered severely increased KDIGO. (2013). KDIGO 2012 Clinical Practice Guideline for the Evaluation and Management of Chronic Kidney Disease. Official Journal of the International Society of Nephrology, 3(1), 1-150. Protein/Creatinine (U) [Mass ratio]on 28-08-2328Lbvplmyoyw (U) [Mass/Vol]34.5 mg/dL20.0 - 300.0 mg/dLSelect Medical Specialty Hospital - Cleveland-FairhillInterpretation and review of laboratory resultsAbnormalCleveland ClinicProtein (U) [Mass/Vol]6 mg/dL0 - 20 mg/dL [facility] ClinicUrinalysis complete panel (U)on 03-30-2024 Bacteria LM.HPF (Urine sed) [#/Area]NegativeNegative /HPFSelect Medical Specialty Hospital - [place]-Fairhill Bilirubin Ql (U)NegativeNegativePatillas ClinicClarity (Unsp spec)ClearClear [facility]-FairhillColor (U)YellowYellowSelect Medical Specialty Hospital - Cleveland-FairhillEpithelial cells LM.HPF (Urine sed) [#/Area]None Seen/HPFSelect Medical Specialty Hospital - Cleveland-FairhillGlucose Test strip (U) [Mass/Vol]NegativeNegativeSelect Medical Specialty Hospital - Cleveland-FairhillHemoglobin Ql (U)NegativeNegative [facility]-FairhillHyaline casts (Urine sed) [#/Area]4-10 /LPFAbnormal0 /LPF [facility]-FairhillInterpretation and review of laboratory resultsAbnormalCleveland ClinicKetones Ql (U)NegativeNegativeSelect Medical Specialty Hospital - Cleveland-FairhillLeukocyte esterase Test strip Ql (U)NegativeNegativePatillas ClinicNitrite Ql (U)NegativeNegative Patillas ClinicpH (U)6.5 [pH]NINF - 8.5Cleveland ClinicProtein (U) [Mass/Vol] NegativeNegativeSelect Medical Specialty Hospital - Cleveland-FairhillRBC LM.HPF (Urine sed) [#/Area]0-2 /HPF0-2 /HPF [facility] Barberton Campuspecific gravity (U) [Rel density]1.0101.005 - 1.030[facility]-FairhillUrobilinogen Ql (U)0.2 EU/dL0.2-1.0 EU/dLSelect Medical Specialty Hospital - Cleveland-FairhillWBC LM.HPF (Urine sed) [#/Area]0-5 /HPF0-5 /HPFSelect Medical Specialty Hospital - Cleveland-FairhillThis test was developed and its performance characteristics determined by [facility]'s [facility] Pathology and Laboratory Medicine [place] ([facility]BY[facility] MEDICAL CENTERPLOK). It has not been cleared or approved by the FDA. [facility] is regulated under CLIA as qualified to perform high-complexity testing. Thistest is used for clinical purposes. It should not be regarded as investigational or for research. [facility] 53-26-7886IPQXPNJBYZN: - Exam indication: Pericardial Disease - The left ventricle is normal in size. Left ventricular systolic function is normal. EF = 55 5% (visual est.) - The right ventricle is normal in size. Right ventricular systolic function is normal. - The patient has not had a prior CC echocardiographic exam for comparison. * * * Final * * *[facility] Echocardiography Report: Transthoracic Echo [employer] Date of service: 03/26/2024 2:34:18 PM Ordering [...] septum. PERICARDIUM There is no pericardial effusion. [facility] CARDIOLOGYEchocardiographyEchocardiography Report: Transthoracic Echo [employer] Date of service: 03/26/2024 2:34:18 PM Ordering physician: LOUISE CESAR Indication: Pericardial Disease Technologist: Marlyn Thomas [facility] and staff Interpreting physician: [...] * * Final * * * [facility] [employer] [facility] Image : [id number]j [facility] BoysLVEF ECHOon 11-09-3175UD Ejection Srngotzk52 %[facility] Comment on above:(visual est.) EF > 52 An LV Ejection Fraction of > 50% is normal No Panel Informationon 34-54-0541Zhxihvqgo ClinicCNOVon 56-52-5008SQZTTloabt Visit (BERNARD) SAV RAYMUNDO ([id number]) 1950 M Date Time Provider Department 03/17/24 1:30 PM RUMA OSHEA During your visit today, we recorded the following information about you: Temperature Pulse Respiration Blood pressure 97.3 degrees 88/minute 16/minute 132/78 Weight Height 94.3 kg 1.778 m Ruma Oshea PA-C 03/17/2024 2:26 PM Signed [facility] - OUTPATIENT THORACIC SURGERY CLINIC NOTE PT NAME: Sav Cantu Kimberly [facility] NO: [id number] THORACIC SURGEON: Ronaldo Flood M.D. 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 Right pleura, biopsy: - Chronic pleuritis with mesothelial hyperplasia (see comment). B. Right pleura, biopsy: - Acute organizing and chronic pleuritis (see comment). ND/ 11/22/2023 Diagnosis Comment A. 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 He was hospitalized 12/20/23 for anasarca, possible autoimmune disease, recurrent pleural effusion. Imaging did not reveal any acute findings. Patient was admitted to [facility] and started on lasix drip, improving anasarca and pleural effusion. Pleurx catheter was drained daily with significantly decreasing output [phone]. He was worked up for an autoimmune [...] presents to clinic today for postoperative visit. [facility] RN called in 03/03 reporti (more content not included)...NormalHillcrest HospitalCNOVOffice Visit (MOPL) SAV RAYMUNDO ([id number]) 1950 M Date Time Provider Department 03/17/24 10:20 AM LOUISE CESAR MOPL During your visit today, we recorded the following information about you: Pulse Blood pressure Weight 82/minute 126/84 93 kg Jacqueline García, RN 03/17/2024 10:25 AM Signed Sav Raymundo is a very pleasant 74 year old male who presents today for pleural effusion (November 19), still has chest drainage tube Pleurex tube After surgery, fluid still gathering around right lung. Last seen by Pulmonary Doctor? [facility]. Clemente in [facility]. Outside of [facility]. Is Dr. Cesar on Care Team as Station Worker? no Meds reviewed - Refills pended?no Since last seen Have you had any resp illnessses, COVID, exacerbations or recent visits to ER?hospital/Urgent-Care? [place] December 19 x 1 week, Vaccines: Immunization History Administered Date(s) Administered COVID-19 original vaccine, age 12+ yr, monovalent (Coty - PURPLE TOP) 08/15/2020 08/22/2020 09/13/2020 05/10/2021 influenza (aIIV3) vaccine, age 65+ yr, trivalent, PF (FLUAD) 05/09/2020 pneumococcal conjugate (PCV13) vaccine, 13 valent (PREVNAR 13) 11/26/2016 pneumococcal polysaccharide (PPV23) vaccine, 23 valent (PNEUMOVAX 23) 02/03/2018 tetanus diphtheria (Td) vaccine, age 7+ yr, 5 Lf tetanus, PF (TENIVAC) 06/04/2018 08/30/2018 zoster (RZV) vaccine, recombinant (SHINGRIX) 08/30/2018 Modified Medical Research [place] Dyspnea Scale (MMRC) I stop for breath [...] to the [facility] Respiratory [place]. Consultation requested by Dr. Hopper and Dr. Ronaldo Flood. My final recommendations/evaluation will be communicated back to the requesting physician by way of shared medical record or letter via US mail. This note was partially created using [employer] Voice recognition software and is inherently subject to errors including those of syntax and ?sound-alike? substitutions which may escape proofreading. In such instances, original meaning may be extrapolated by contextual derivation. 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 Mr. Kumar presents with an interesting history. 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 He underwent thoracentesis several times, each time pleural fluid analysis showed exudative fluid. CT scan was obtained locally which did not reveal much except pleural effusion. CT scan also shows pericardial effusion. He was then referred by his local data clerk to [facility] for a pleurodesis. In November 2023, he underwent VATS pleurodesis (mechanical and doxycycline), with pleural biopsy, and the Pleurx catheter was also placed. Analysis of the pleural fluid and biopsies of the pleura showed acute and chronic pleuritis with organization, but no malignancy. We do not have pleural fluid chemical or hematological analysis done in [facility], but cytology was negative for malignant cells. He was discharged with Pleurx catheter, and and has been draining pleural fluid about 500 to 800 mL every other day. And his dry cough has also been persistent. In December 2023, he was sent to [facility] after seeing thoracic surgery ADRIENNE for anasarca, and was admitted. His abdomen and subcutaneous tissues especially in his legs were swollen, no ascites found, but significant skin edema including blisters were seen. 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 03/17/2024 8:16 AM RESPIRATORY THERAPY ORAL EXHALED [...] 8:16 AM [facility] Panel Informationon 48-74-0532GKXD (ml/min/mmHg)21.86ml/min/mmHgCleveland ClinicDLCO LLN (ml/min/mmHg)15.50 ml/min/mmHgCleveland ClinicDLCO PREDICTED [...] ClinicVA PREDICTED (L)6.81 LCleveland ClinicVC (L) [address] LCprotestant deaconess hospitaland [facility] [address] [place] [address] Test Date: 2024-03-17 Pat Name: SAV RAYMUNDO Department: Room: Gender: Male 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 Lung Volumes repeatable x 3. //MW IMPRESSION: Decrease in TLC indicates restriction. The diffusing capacity is normal. Electronically Signed On 03-17-2024 14:02:07 EDT by Kathy Hartman MD ID: [id number] Name: SAV RAYMUNDO Race: White Ht: 69.96 in Wt: 209.44 lbs Age: 74 Gender: Male : 1950 Dx: Idiopathic interstitial pulmonary disease_ Smoking Hx: Non-smoker Doctor: LOUISE CESAR Test Date: 03/17/2024 Site: [facility] Tech: Was, Wes PRE-BRONCH POST-BRONCH Pre LLN [...] Volumes repeatable x 3. //MW PULMONARY FUNCTION LABSelect Medical Specialty Hospital - Cleveland-FairhillXR CHEST 2V FRONTAL/LATon 97-45-3045BM CHEST 2V FRONTAL/LAT* * *Final Report* * [...] noted slightly increased. Right-sided Pleurx catheter present. 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 Transcribed Using Voice Recognition Transcribe Date/Time: Feb 05 2024 12:51P Dictated by: SHAWN TALAVERA MD This examination was interpreted and the report reviewed and electronically signed by: SHAWN TALAVERA MD on Feb 05 2024 12:52PM EST [facility]* * *Final Report* * * [...] changes are present within the thoracic spine. [facility] [place] - 02/05/2024 * * *Final Report* * [...] 12:52PM EST [facility] - Cleveland-FairhillXR Chest PA and LateralOrdered By: Ccf Provider on 02-05-2024 [facility] - Cleveland-FairhillCNOVon [id number] Visit (BERNARD) SAV RAYMUNDO ([id number]) 1950 M Date Time Provider Department 02/04/24 1:30 PM TITA LANDRY During your visit today, we recorded the following information about you: Temperature Pulse Respiration Blood pressure 97.1 degrees 75/minute 16/minute 120/69 Weight Height 90.7 kg 1.829 m Tita Landry APRN.CNP 02/05/2024 4:19 PM Signed [facility] [place] DEPARTMENT OF THORACIC SURGERY OUTPATIENT VISIT DATE February 04, 2024 OUTPATIENT VISIT TYPE ESTABLISHED PT NAME: Sav Raymundo [facility] NO: [id number] THORACIC SURGEON: Ronaldo Flood M.D. 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 He was hospitalized 12/20/23 for anasarca, possible autoimmune disease, recurrent pleural effusion. Imaging did not reveal any acute findings. Patient was admitted to [facility] and started on lasix drip, improving anasarca and pleural effusion. Pleurx catheter was drained daily with significantly decreasing output [phone]. He was worked up for an autoimmune [...] no suspicious rashes (more content not included)...Normal [facility]oughtonXR CHEST 2V FRONTAL/LATon [id number] CHEST 2V FRONTAL/LAT* * *Final Report* * [...] MD on Feb 05 2024 12:52PM EST [id number] Union Hospital Chest PA and Lateralon [id number] Study observation (narrative)[facility] Cleveland-FairhillCNOVon [id number] Visit (BERNARD) ASV RAYMUNDO ([id number]) 1950 M Date Time Provider Department 01/06/24 2:00 PM RUMA OSHEA During your visit today, we recorded the following information about you: Temperature Pulse Respiration Blood pressure 97.2 degrees 80/minute 16/minute 137/73 Weight Height 97.3 kg 1.829 m Ruma Oshea PA-C 01/06/2024 2:58 PM Signed [facility] - OUTPATIENT THORACIC SURGERY CLINIC NOTE PT NAME: Sav Raymundo [facility] NO: [id number] THORACIC SURGEON: Ronaldo Flood M.D. 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 Patient was admitted to [facility] and started on lasix drip, improving anasarca and pleural effusion. Pleurx catheter was drained daily with significantly decreasing output [phone]. He was worked up for an autoimmune [...] clinic. Patient does have follow up with elevator adjuster today and data clerk next week. Will fax over recent medical information to data clerk. Patient also going on a bus trip [...] male with pm (more content not included)...Normal [facility]oughtonXR CHEST 2V FRONTAL/LATon [id number] CHEST 2V FRONTAL/LAT* * *Final Report* * [...] 9:10PM EST [id number] HospitalBasic metabolic 2000 panelon 22-10-0068Erewi gap [Moles/Vol]14 mmol/LNormal8-15Hillcre HospitalComment on above:Order Comment: Specimen Type: BLOOD SPECIMEN Ordering Facility: [facility] Address: [address] [place], [place] [address]Performed By: #### 94158-4 #### [facility] CLIA [id number] [address] [place] [address] [place] OF AMERICACalcium [Mass/Vol]9.0 mg/dL Normal8.5-10.2Hillcre HospitalComment on above:Order Comment: Specimen Type: BLOOD SPECIMEN Ordering Facility: [facility] Address: [address] [place], [place] [address]Performed By: #### 28468-6 #### [facility] CLIA [id number] [address] [place], [place] [address] [place] OF AMERICAChloride [Moles/Vol]101 mmol/AAiralf20-363Uqemydlbh HospitalComment on above:Order Comment: Specimen Type: BLOOD SPECIMEN Ordering Facility: [facility] Address: [address] [place], [place] [address]Performed By: #### 29726-4 #### [facility] CLIA [id number] [address] [place] [address] [place] OF AMERICACO2 [Moles/Vol]23 mmol/L Otijer37-94Ufblvstmm HospitalComment on above:Order Comment: Specimen Type: BLOOD SPECIMEN Ordering Facility: [facility] Address: [address] [place], [place] [address]Performed By: #### 02734-2 #### [facility] CLIA [id number] [address] [place] [address] [place] AMERICACreatinine [Mass/Vol]0.96 mg/dLNormal0.73-1.22[facility] HospitalComment on above:Order Comment: Specimen Type: BLOOD SPECIMEN Ordering Facility: [facility] Address: [address] [place], [place] [address]Performed By: #### 34775-8 #### [facility] CLIA [id number] [address] [place] [address] [place] AMERICACreatinine and Glomerular filtration rate.predicted panel (S/P/Bld)84 mL/min/1.73m???Normal>=60[facility] HospitalComment on above:Order Comment: Specimen Type: BLOOD SPECIMEN Ordering Facility: [facility] Address: [address] [place], [place] [address]Result Comment: Estimated Glomerular Filtration Rate (eGFR) is [...] not accurately reflect actual GFR.Performed By: #### 28207-0 #### [facility] CLIA [id number] [address] [place] [address] [place] AMERICAGlucose [Mass/Vol]152 mg/dL Ithh18-73Mmpfreyvv HospitalComment on above:Order Comment: Specimen Type: BLOOD SPECIMEN Ordering Facility: [facility] Address: [address] [place], [place] [address]Result Comment: The [place] Diabetes Association (ADA) provides guidance for cutoff [...] Standards of Medical Care in Diabetes 2016, [place] Diabetes Association. Diabetes Care. 2016.39(Suppl 1).Performed By: #### 59371-0 #### [facility] CLIA [id number] [address] [place] [address] [place] AMERICAPotassium [Moles/Vol]4.1 mmol/LNormal3.7-5.1[facility] HospitalComment on above:Order Comment: Specimen Type: BLOOD SPECIMEN Ordering Facility: [facility] Address: [address] [place], [place] [address]Performed By: #### 96730-7 #### [facility] [place] [id number] [address] [place] [address] [place] AMERICASodium [Moles/Vol]138 mmol/L Awguur612-106Geingbvin HospitalComment on above:Order Comment: Specimen Type: BLOOD SPECIMEN Ordering Facility: [facility] Address: [address] [place], [place] [address]Performed By: #### 20114-8 #### [facility] CLIA [id number] [address] [place] [address] [place] AMERICAUrea nitrogen [Mass/Vol]19 mg/dLNormal9-24Hillcrest HospitalComment on above:Order Comment: Specimen Type: BLOOD SPECIMEN Ordering Facility: [facility] Address: [address] [place], [place] [address]Performed By: #### 67495-6 #### [facility] CLIA [id number] [address] [place] [address] [place] OF AMERICACBC panel Auto (Bld)on 34-96-4003Ceuupnhhbwl distribution width (RBC) [Ratio]14.8 %Nsrcxd69.5-15.0 [facility] HospitalComment on above:Order Comment: Specimen Type: BLOOD SPECIMEN Ordering Facility: [facility] Address: [address] [place], [place] [address]Performed By: #### 64318-5 #### [facility] CLIA [id number] [address] [place] [address] [place] AMERICAHematocrit (Bld) [Volume fraction]39.2 %Yhducv34.0-51.0[facility] HospitalComment on above:Order Comment: Specimen Type: BLOOD SPECIMEN Ordering Facility: [facility] Address: [address] [place], [place] [address]Performed By: #### 80188-9 #### [facility] CLIA [id number] [address] [place] [address] [place] AMERICAHemoglobin (Bld) [Mass/Vol] 12.5 g/dLLow13.0-17.0[facility] HospitalComment on above:Order Comment: Specimen Type: BLOOD SPECIMEN Ordering Facility: [facility] Address: [address] [place], [place] [address]Performed By: #### 76905-5 #### [facility] CLIA [id number] [address] [place] [address] [place] AMERICAMCH (RBC) [Entitic mass]29.6 etTixxjw68.0-34.0[facility] HospitalComment on above:Order Comment: Specimen Type: BLOOD SPECIMEN Ordering Facility: [facility] Address: [address] [place], [place] [address]Performed By: #### 44804-7 #### [facility] CLIA [id number] [address] [place] [address] UNITED RUSSELL COUNTY MEDICAL CENTERMCHC (RBC) [Mass/Vol]31.9 g/bGZolwix91.5-36.0[facility]st HospitalComment on above:Order Comment: Specimen Type: BLOOD SPECIMEN Ordering Facility: [facility] Address: [address] [place], [place] [address]Performed By: #### 54920-2 #### [facility] CLIA [id number] [address] [place], [place] [address]MCV (RBC) [Entitic vol]92.9 lFZkqwxf49.0-100.0[facility] HospitalComment on above:Order Comment: Specimen Type: BLOOD SPECIMEN Ordering Facility: [facility] Address: [address] [place], [place] [address]Performed By: #### 13635-1 #### [facility] [place] [id number] [address] [place] [address] STATES AMERICANucleated RBC (Bld) [#/Vol] 10*3/uLNormal<0.01[facility] HospitalComment on above:Order Comment: Specimen Type: BLOOD SPECIMEN Ordering Facility: [facility] Address: [address] [place], [place] [address]Performed By: #### 88909-6 #### [facility] [place] [id number] [address] [place] [address] [place] AMERICAPlatelet mean volume (Bld) [Entitic vol]10.3 fLNormal9.0-12.7[facility]st HospitalComment on above:Order Comment: Specimen Type: BLOOD SPECIMEN Ordering Facility: [facility] Address: [address] [place], [place] [address]Performed By: #### 44986-0 #### [facility] CLIA [id number] [address] [place] [address] [place] AMERICAPlatelets (Bld) [#/Vol]218 10*3/mEKjttog468-290Ensagsdec HospitalComment on above:Order Comment: Specimen Type: BLOOD SPECIMEN Ordering Facility: [facility] Address: [address] [place], [place] [address]Performed By: #### 19655-7 #### [facility] CLIA [id number] [address]ETRBC (Bld) [#/Vol]4.22 10*6/uL Normal4.20-6.00[facility] HospitalComment on above:Order Comment: Specimen Type: BLOOD SPECIMEN Ordering Facility: [facility] Address: [address] [place], [place] [address]Performed By: #### 67702-5 #### [facility] IA [id number] [address] [place], [place] [address]WBC (Bld) [#/Vol]5.29 10*3/uL Normal3.70-11.00[facility] HospitalComment on above:Order Comment: Specimen Type: BLOOD SPECIMEN Ordering Facility: [facility] Address: [address] [place], [place] [address]Performed By: #### 23531-3 #### [facility] [place] [id number] [address] [place], [place] [address]CNDS 78-63-2416WZTVLPM ID: [id number] Author: JOSE ANTONIO HOPPER MD Service: Family [...] was drained daily with significantly decreased amount 450-250-818-100 mL. The electrolytes have been replaced daily. [...] for appointment?: Yes Jose Antonio Hopper MD [phone] [address] [place] [address] PCP Requested Referral Additional Provider to Provider Information: No notes on file Treatment Team: Attending Provider: Jose Antonio Hopper MD Consulting: Yehuda Dial MD Transitions of Care Critical Issues: LAB MONITORING NEEDED: BMP,Magnesium on 01/02/2024 SPECIALIST FOLLOW-UP: Dr Dial on 01/06/2024 LABS AND PROCEDURES PENDING AT DISCHARGE: No pending results. FOLLOW-UP APPOINTMENTS ALREADY SCHEDULED WITH A [facility] PROVIDER: Future Appointments Date Time Provider Department Center 01/06/2024 1:15 [facility] 01[facility]06/2024 2:00 PM Ruma Oshea PA-C [facility] ALL[facility] Allergen Reactions Tramadol Mental Status Change DISCHARGE MEDICATION: Medication List START maryjane (more content not included)...[facility]NUR[facility]er[facility] 00-09-1677RNPMRKJ [facility] ID: [id number] Author: ROJAS CLINE RN Service: Nursing Author Type: Registered Nurse Type: Nursing Progress Note Filed: 12/26/2023 18:03 Note Text: Patient given discharge paperwork. All question and concerns addressed. Patient transport home via family transportGroton Community HospitalXR SINUS 3V PA/DAN/LATon 56-80-3820WK SINUS 3V PA/DAN/LAT* * *Final Report* * [...] 8:21AM EST [id number] HospitalBasic metabolic 2000 panelon 84-91-8830Acifk gap [Moles/Vol]12 mmol/LNormal8-15[facility] HospitalComment on above:Order Comment: Specimen Type: BLOOD SPECIMEN Ordering Facility: [facility] Address: [address] [place] [address]Sylyajfro By: #### MPO #### [facility] CLIA [id number] [address] [place] [address]Zcjuzdt [Mass/Vol]9.0 mg/dLNormal8.5-10.2[facility] HospitalComment on above:Order Comment: Specimen Type: BLOOD SPECIMEN Ordering Facility: [facility] Address: [address] [place] [address] 546[address]Sffyycypv By: #### MPO #### [facility] CLIA [id number] [address] [place] [address] 25835Wihrizii [Moles/Vol]95 mmol/GUwl78-331Gfumpcepj HospitalComment on above:Order Comment: Specimen Type: BLOOD SPECIMEN Ordering Facility: [facility] Address: [address] [id number] By: #### MPO #### [facility] CLIA [id number] [address] [place] [address]35[address]BR8 [Moles/Vol]27 mmol/KDwduyx31-45Ichnjhnis HospitalComment on above:Order Comment: Specimen Type: BLOOD SPECIMEN Ordering Facility: [facility] Address: [address] [place], [place] [address]Performed By: #### MPO #### [facility] CLIA [id number] [address] [place] [address]Mexgturugt [Mass/Vol]1.07 mg/dLNormal0.73-1.22 [facility] HospitalComment on above:Order Comment: Specimen Type: BLOOD SPECIMEN Ordering Facility: [facility] Address: [address] [place], [place] [address]Performed By: #### MPO #### [facility] CLIA [id number] [address] [place] [address]Thwvfmdisa and Glomerular filtration rate.predicted panel (S/P/Bld)74 mL/min/1.73m???Normal>=60Hillgenesis hospitalst HospitalComment on above: Order Comment: Specimen Type: BLOOD SPECIMEN Ordering Facility: [facility] Address: [address] [place], [place] [address]Result Comment: Estimated Glomerular Filtration Rate (eGFR) is [...] reflect actual GFR.Performed By: #### MPO #### [facility] CLIA [id number] [address] [place] [address]Bnaymva [Mass/Vol]108 mg/eULxbx94-55Oauhwwjct HospitalComment on above:Order Comment: Specimen Type: BLOOD SPECIMEN Ordering Facility: [facility] Address: [address] [place], [place] [address]Result Comment: The [place] Diabetes Association (ADA) provides guidance for cutoff [...] Standards of Medical Care in Diabetes 2016, [place] Diabetes Association. Diabetes Care. 2016.39(Suppl 1).Performed By: #### MPO #### [facility] CLIA [id number] [address] [place] [address] 400[address]Cgbqynjab [Moles/Vol]3.7 mmol/LNormal3.7-5.1 [facility] HospitalComment on above:Order Comment: Specimen Type: BLOOD SPECIMEN Ordering Facility: [facility] Address: [address] [place], [place] [address]Performed By: #### MPO #### [facility] CLIA [id number] [address] [place] [address] 02443Tozoyl [Moles/Vol]134 mmol/GZfv985-798Acrrofpmd HospitalComment on above:Order Comment: Specimen Type: BLOOD SPECIMEN Ordering Facility: [facility] Address: [address] [place], [place] [address]Performed By: #### MPO #### [facility] CLIA [id number] [address] [place] [address] 585[address]Ykyo nitrogen [Mass/Vol]24 mg/dLNormal9-24Hs[facility] HospitalComment on above:Order Comment: Specimen Type: BLOOD SPECIMEN Ordering Facility: [facility] Address: [address] [place], [place] [address]Performed By: #### MPO #### [facility] CLIA [id number] [address] [place] [address]AKBIDTJce 25-52-1094SQTWBMGKWH ID: [id number] Author: YEHUDA DIAL MD Service: Rheumatology Author [...] underlying condition. The subject is [facility] for anasarca. In the past few weeks [...] for seasonal allergi (more content not included)...Normal [facility] SerPl-mCncon 66-18-3968RHM [Mass/Vol]1.1 mg/dLHigh<0.9 [facility] StoughtonComment on above:Order Comment: Specimen Type: BLOOD SPECIMEN Ordering Facility: [facility] Address: [address] [place], [place] [address]Performed By: #### MPO #### [facility] CLIA [id number] [address] [place], [place] [address]ESR Westergren method (Bld) [Velocity]on 12-25-2023 ESR (Bld) [Velocity]28 mm/hHigh0-15[facility] StoughtonComment on above:Order Comment: Specimen Type: BLOOD SPECIMEN Ordering Facility: [facility] Address: [address] [place], [place] [address]Performed By: #### 10914-2 #### [facility] CLIA [id number] [address] [place] [address] OF AMERICAIMMUNOFIXATION SCREEN, SERUM on 26-72-9475MBI RESULTNo M protein is identified.NormalNo M protein is identified.[facility] StoughtonComment on above:Order Comment: Specimen Type: BLOOD SPECIMENOrdering Facility: [facility] Address:[address] [place], [place] [address]Performed By: #### IFESC ####[facility] LABCLIA [id number] [address] STATES OF AMERICASTAFF REVIEW (MPA)Reviewed by Dr. Trini Mourapercy [facility] StoughtonComment on above:Order Comment: Specimen Type: BLOOD SPECIMENOrdering Facility: [facility] Address:[address] [place], [place] [address]Performed By: #### IFESC ####[facility] LABCLIA [id number] [address]ETMYELOPEROXIDASEon 41-43-0729CPXFLAFVTOPEIXI032 pmol/LNormal<470HiMount Auburn HospitalComment on above:Order Comment: Specimen Type: BLOOD SPECIMEN Ordering Facility: [facility] Address: [address] [place], [place] [address]Result Comment: Based on a high risk sub-population [...] 2013; 111:465-470 and personal communication with Arnold et al). This test was developed and its analytical performance characteristics have been determined by [facility]. It has not been cleared or approved by the U.S. Food and Drug Administration. This assay has been validated pursuant to the CLIA regulations and is used for clinical purposes. Received Date: [id number] By: #### MPO #### [facility] CLIA [id number] [address]PB CARDIAC AMYLOID SPECT/CTon 47-06-9931KJ CARDIAC AMYLOID SPECT/CT* * *Final Report* * * DATE OF EXAM: Dec 25 2023 3:56PM HCN 0847 - NM CARDIAC AMYLOID SPECT/CT / PROCEDURE REASON: Cardiac amyloidosis suspected, further testing * * * * Physician Interpretation * * * * RESULT: KS CTAC Report: [facility] Date of service: 12/25/2023 3:18:39 PM CTAC [...] pathologic assessment as appropriate. Nuclear Med Report: Ec-11x-Piaorawyxrshx PLANAR and SPECT: Myocardial imaging of the chest with CT attenuation correction was performed at 3 hours post IV injection of Tc-99m Pyrophosphate. See administered doses below. [facility] Date of service: 12/25/2023 3:18:39 PM Ordering [...] EST [id number] HospitalPROTEIN ELECTROPHORESIS SERUM (P) on 23-06-5067Djvoxsq [Mass/Vol]3.52 g/dLNormal3.43-5.41Hillcrest HospitalComment on above:Order Comment: Specimen Type: BLOOD SPECIMEN Ordering Facility: [facility] Address: [address] [place], [place] [address]Performed By: #### [id number] #### [facility] CLIA [id number] [address] [place] [address] [place] AMERICAAlpha 1 globulin Elph [Mass/Vol]0.34 g/dLNormal0.18-0.43Hillcrest HospitalComment on above:Order Comment: Specimen Type: BLOOD SPECIMEN Ordering Facility: [facility] Address: [address] [place], [place] [address]Performed By: #### [id number] #### [facility] CLIA [id number] [address] [place] [address] [place] AMERICAAlpha 2 globulin Elph [Mass/Vol]0.86 g/dLNormal0.42-0.98[facility]crest HospitalComment on above:Order Comment: Specimen Type: BLOOD SPECIMEN Ordering Facility: [facility] Address: [address] [place], [place] [address]Performed By: #### [id number] #### [facility] CLIA [id number] [address] [place] [address] [place] AMERICABeta globulin Elph [Mass/Vol]0.91 g/dLNormal0.61-1.17[facility]crest HospitalComment on above:Order Comment: Specimen Type: BLOOD SPECIMEN Ordering Facility: [facility] Address: [address] [place], [place] [address]Performed By: #### [id number] #### [facility] CLIA [id number] [address] [place] [address] [place] AMERICAGamma globulin Elph [Mass/Vol]0.66 g/dLNormal0.53-1.51Hillcrest HospitalComment on above:Order Comment: Specimen Type: BLOOD SPECIMEN Ordering Facility: [facility] Address: [address] [place], [place] [address]Performed By: #### [id number] #### [facility] CLIA [id number] [address] [place] [address] [place] AMERICAM-PROTEIN LOCATIONNormal [facility]ansom Canyon HospitalComment on above:Order Comment: Specimen Type: BLOOD SPECIMEN Ordering Facility: [facility] Address: [address] [place], [place] [address]Result Comment: Not Applicable. Performed By: #### [id number] #### [facility] CLIA [id number] [address] [place] [address] [place] AMERICAProtein Fractions [Interp]No definitive M protein is identified on protein electrophoresis.NormalNo definitive M protein is identified on protein electrophoresis.[facility] Comment on above:Order Comment: Specimen Type: BLOOD SPECIMEN Ordering Facility: [facility] Address: [address] [place], [place] [address]Performed By: #### [id number] #### [facility] CLIA [id number] [address] [place] [address] [place] AMERICAProtein.monoclonal Elph [Mass/Vol]0.00 g/dLNormal<=0.00[facility] HospitalComment on above:Order Comment: Specimen Type: BLOOD SPECIMEN Ordering Facility: [facility] Address: [address] [place], [place] [address]Performed By: #### [id number] #### [facility] CLIA [id number] [address] [place] [address] STATES [facility] STAFF REVIEWReviewed by Dr. Trini Farley Lawrence Memorial HospitalComment on above:Order Comment: Specimen Type: BLOOD SPECIMEN Ordering Facility: [facility] Address: [address] [place], [place] [address]Performed By: #### [id number] #### [facility] CLIA [id number] [address] [place] [address] [place] AMERICAProt SerPl-mCncon 12-25-2023 Protein [Mass/Vol]6.3 g/dLNormal6.3-8.0[facility] HospitalComment on above:Order Comment: Specimen Type: BLOOD SPECIMEN Ordering Facility: [facility] Address: [address] [place], [place] [address]Performed By: #### 1988-5, 28020-3 #### [facility] CLIA [id number] [address] [place] [address] [place] [facility] SerPl-aCncon 12-25-2023 TSH Qn2.300 m[IU]/LNormal0.270-4.200[facility] HospitalComment on above:Order Comment: Specimen Type: BLOOD SPECIMEN Ordering Facility: [facility] Address: [address] [place], [place] [address]Performed By: #### 1988-5, 33507-2 #### [facility] CLIA [id number] [address] [place] [address] [facility] metabolic 2000 panelon 47-54-5017Xgyzt gap [Moles/Vol]12 mmol/LNormal8-15[facility] HospitalComment on above:Order Comment: Specimen Type: BLOOD SPECIMEN Ordering Facility: [facility] Address: [address] [place], [place] [address]Performed By: #### MPO #### [facility] CLIA [id number] [address] [place] [address]Qbwqept [Mass/Vol]9.5 mg/dLNormal8.5-10.2[facility]st HospitalComment on above:Order Comment: Specimen Type: BLOOD SPECIMEN Ordering Facility: [facility] Address: [address] [place], [place] [address]Performed By: #### MPO #### [facility] CLIA [id number] [address] [place] [address]Qcwitoin [Moles/Vol]94 mmol/QFzt40-238Xfdilmqff HospitalComment on above:Order Comment: Specimen Type: BLOOD SPECIMEN Ordering Facility: [facility] Address: [address] [place], [place] [address]Performed By: #### MPO #### [facility] CLIA [id number] [address] [place] [address] 00756MC3 [Moles/Vol]28 mmol/NYogoqd15-83Iiyhleagz HospitalComment on above:Order Comment: Specimen Type: BLOOD SPECIMEN Ordering Facility: [facility] Address: [address] [place], [place] [address]Performed By: #### MPO #### [facility] CLIA [id number] [address] [place] [address]Mehegihbju [Mass/Vol]1.27 mg/dLHigh0.73-1.22 [facility] HospitalComment on above:Order Comment: Specimen Type: BLOOD SPECIMEN Ordering Facility: [facility] Address: [address] [place] [address]Bzrlqjcbi By: #### MPO #### [facility] CLIA [id number] [address] [place] [address]Yefuuyatbb and Glomerular filtration rate.predicted panel (S/P/Bld)60 mL/min/1.73m???Normal>=60HiMount Auburn HospitalComment on above: Order Comment: Specimen Type: BLOOD SPECIMEN Ordering Facility: [facility] Address: [address] [place] [address]Aotvjm Comment: Estimated Glomerular Filtration Rate (eGFR) is [...] reflect actual GFR.Performed By: #### MPO #### [facility] CLIA [id number] [address] [place] [address] 260[address]Xxwssmd [Mass/Vol]134 mg/wIIuqa48-69Izwvtsndf HospitalComment on above:Order Comment: Specimen Type: BLOOD SPECIMEN Ordering Facility: [facility] Address: [address] [place] [address]Hmdutm Comment: The [place] Diabetes Association (ADA) provides guidance for cutoff [...] Standards of Medical Care in Diabetes 2016, [place] Diabetes Association. Diabetes Care. 2016.39(Suppl 1).Performed By: #### MPO #### [facility] CLIA [id number] [address] [place] [address]38[address]Yvovclllf [Moles/Vol]3.6 mmol/LLow3.7-5.1[facility] HospitalComment on above:Order Comment: Specimen Type: BLOOD SPECIMEN Ordering Facility: [facility] Address: [address] [place], [place] [address]Performed By: #### MPO #### [facility] CLIA [id number] [address] [place] [address]Gdhtum [Moles/Vol]134 mmol/NTbs743-040Gkkzodafk HospitalComment on above:Order Comment: Specimen Type: BLOOD SPECIMEN Ordering Facility: [facility] Address: [address] [place], [place] [address]Performed By: #### MPO #### [facility] CLIA [id number] [address] [place], [place] [address]Urea nitrogen [Mass/Vol]25 mg/dLHigh9-24[facility] HospitalComment on above:Order Comment: Specimen Type: BLOOD SPECIMEN Ordering Facility: [facility] Address: [address] [place], [place] [address]Performed By: #### MPO #### [facility] CLIA [id number] [address] [place], [place] [address]Anion gap [Moles/Vol]14 mmol/LNormal8-15[facility] HospitalComment on above:Order Comment: Specimen Type: BLOOD SPECIMEN Ordering Facility: [facility] Address: [address] [place], [place] [address]Performed By: #### 1987-10, #### [facility] CLIA [id number] [address] [place] [address] [place] AMERICACalcium [Mass/Vol]9.4 mg/dL Normal8.5-10.2[facility] HospitalComment on above:Order Comment: Specimen Type: BLOOD SPECIMEN Ordering Facility: [facility] Address: [address] [place], [place] [address]Performed By: #### 1987-10, #### [facility] CLIA [id number] [address] [place] [address] [place] AMERICAChloride [Moles/Vol]95 mmol/L Awh78-372Oadaiszjt HospitalComment on above:Order Comment: Specimen Type: BLOOD SPECIMEN Ordering Facility: [facility] Address: [address] [place], [place] [address]Performed By: #### 1987-10, #### [facility] CLIA [id number] [address] [place] [address] [place] AMERICACO2 [Moles/Vol]27 mmol/L Nsajcc39-61Torprpzqb HospitalComment on above:Order Comment: Specimen Type: BLOOD SPECIMEN Ordering Facility: [facility] Address: [address] [place], [place] [address]Performed By: #### 1987-10, #### [facility] CLIA [id number] [address] [place] [address] [place] AMERICACreatinine [Mass/Vol]1.34 mg/dLHigh0.73-1.22Hillcre HospitalComment on above:Order Comment: Specimen Type: BLOOD SPECIMEN Ordering Facility: [facility] Address: [address] [place], [place] [address]Performed By: #### 1987-10, #### [facility] CLIA [id number] [address] [place] [address] [place] AMERICACreatinine and Glomerular filtration rate.predicted panel (S/P/Bld)56 mL/min/1.73m???Low>=60Hillcre HospitalComment on above:Order Comment: Specimen Type: BLOOD SPECIMEN Ordering Facility: [facility] Address: [address] [place], [place] [address]Result Comment: Estimated Glomerular Filtration Rate (eGFR) is [...] GFR.Performed By: #### #### [facility] CLIA [id number] [address] [place] [address] [place] AMERICAGlucose [Mass/Vol]100 mg/dL Uwgt06-67Pfhhwvikz HospitalComment on above:Order Comment: Specimen Type: BLOOD SPECIMEN Ordering Facility: [facility] Address: [address] [place], [place] [address]Result Comment: The [place] Diabetes Association (ADA) provides guidance for cutoff [...] Standards of Medical Care in Diabetes 2016, [place] Diabetes Association. Diabetes Care. 2016.39(Suppl 1).Performed By: #### #### [facility] CLIA [id number] [address] [place] [address] [place] AMERICAPotassium [Moles/Vol]3.6 mmol/LLow3.7-5.1[facility] HospitalComment on above:Order Comment: Specimen Type: BLOOD SPECIMEN Ordering Facility: [facility] Address: [address] [place], [place] [address]Performed By: #### #### [facility] CLIA [id number] [address] [place] [address] [place] AMERICASodium [Moles/Vol]136 mmol/L Qufaaa137-834Vytjtkfnz HospitalComment on above:Order Comment: Specimen Type: BLOOD SPECIMEN Ordering Facility: [facility] Address: [address] [place], [place] [address]Performed By: #### #### [facility] CLIA [id number] [address] [place] [address] [place] AMERICAUrea nitrogen [Mass/Vol]26 mg/dLHigh9-24[facility] HospitalComment on above:Order Comment: Specimen Type: BLOOD SPECIMEN Ordering Facility: [facility] Address: [address] [place], [place] [address]Performed By: #### 1988-5, 80423-3 #### [facility] [place] [id number] [address] [place] [address] [place] AMERICAMagnesium SerPl-mCncon 22-66-7556Ikknfdxaq [Mass/Vol]2.2 mg/dLNormal1.7-2.3[facility] HospitalComment on above:Order Comment: Specimen Type: BLOOD SPECIMEN Ordering Facility: [facility] Address: [address] [place], [place] [address]Performed By: #### 1988-, 23262-1 #### [facility] [id number] [address] [place] [address] [facility] 12-24-2023 NURSING PRONO ID: [id number] Author: SONIYA JO RN Service: ? Author Type: Registered Nurse Type: Nursing Progress Note Filed: 12/24/2023 22:50 Note Text: 1910- Assumed care of pt from outgoing RN, pt seen lying in bed A/O X 3, on RA, no pain or discomfort reported. Safety measures in place and call light within reach. Will continue to monitor.[facility] ID: [id number] Author: ELIZABETH ROWAN, EVAN Service: Nursing Author Type: Registered Nurse Type: Nursing Progress Note Filed: 12/24/2023 10:54 Note Text: Spoke with Dr Pimentel regarding orders for LR bolus 500ml, and PO lasix 80mg. Instructed to given bolus first, then Lasix an hour after.[facility] ID: [id number] Author: DWIGHT GLYNN RN Service: Nursing Author Type: Registered Nurse Type: Nursing Progress Note Filed: 12/24/2023 07:56 Note Text: 0200: Spoke with cage shift manager ADRIENNE regarding patient BP of 86/59. Pt is asymptomatic and ADRIENNE is not worried about the blood pressure at this time. I was advised to page again if BP goes below 80 or if patient becomes symptomatic. NormalHigrace hospital HospitalUrate SerPl-mCncon 72-23-0379Qntsf [Mass/Vol]7.6 mg/dL Normal4.0-8.1[facility] HospitalComment on above:Order Comment: Specimen Type: BLOOD SPECIMEN Ordering Facility: [facility] Address: [address] [place], [place] [address]Performed By: #### MPO #### [facility] CLIA [id number] [address] [place] [address] [id number] CHEST 2V FRONTAL/LATon 43-26-7778BK CHEST 2V FRONTAL/LAT* * *Final Report* * [...] MD on Dec 25 2023 7:53AM EST [id number] Health Specialty Hospital Of StoughtonBasic metabolic 2000 panelon 91-43-5640Ilbpl gap [Moles/Vol]17 mmol/LHigh8-15[facility] HospitalComment on above:Order Comment: Specimen Type: BLOOD SPECIMENOrdering Facility: [facility] Address:[address] [place], [place] [address]Performed By: #### 88015-4, 88230-9 ####[facility] [id number] [place] [address] [place] AMERICACalcium [Mass/Vol]9.5 mg/dLNormal8.5-10.2[facility] HospitalComment on above:Order Comment: Specimen Type: BLOOD SPECIMENOrdering Facility: [facility] Address:[address] [place], [place] [address]Performed By: #### 36030-5, 90559-9 ####[facility] [id number] [place] [address] [place] AMERICAChloride [Moles/Vol]97 mmol/VLtz92-047Vyhhxaziu HospitalComment on above:Order Comment: Specimen Type: BLOOD SPECIMENOrdering Facility: [facility] Address:[address] [place] [address] Performed By: #### 71430-2, 10064-7 ####[facility] [id number] [place] [address] [place] AMERICACO2 [Moles/Vol] 27 mmol/YEkiezg63-74Wxevkglvl HospitalComment on above:Order Comment: Specimen Type: BLOOD SPECIMENOrdering Facility: [facility] Address:[address] [place], [place] [address]Performed By: #### 18631-1, 77800-9 ####[facility] [id number] [place] [address] [place] AMERICACreatinine [Mass/Vol]1.14 mg/dLNormal0.73-1.22[facility] HospitalComment on above:Order Comment: Specimen Type: BLOOD SPECIMENOrdering Facility: [facility] Address:[address] [place], [place] [address]Performed By: #### 12989-4, 41100-1 ####[facility]ORY[facility]IA [id number] [address] STATES OF [place] Creatinine and Glomerular filtration rate.predicted panel (S/P/Bld)68 mL/min/1.73m???Normal>=60P[facility] Hospital Of StoughtonComhenry ford hospital on above:Order Comment: Specimen Type: BLOOD SPECIMENOrdering Facility: [facility] Address:[address] [place] [address] Comment: Estimated Glomerular Filtration Rate (eGFR) is calculated using the 2020 CKD-EPI creatinine equation. This equation utilizes serum creatinine, sex, and age as parameters. The creatinine assay has traceable calibration to isotope dilution-mass spectrometry. Refer to KDIGO guidelines for clinical interpretation. In patients with unstable renal function, e.g. those with acute kidney injury, the eGFR may not accurately reflect actual GFR.Performed By: #### 75267-8, 78261-3 ####[facility]ORYCLIA [id number] [address] STATES AMERICAGlucose [Mass/Vol]113 mg/gHHmvw35-06Lktlcklam HospitalComment on above:Order Comment: Specimen Type: BLOOD SPECIMENOrdering Facility: [facility] Address:[address] [place] [address] Comment: The [place] Diabetes Association (ADA) provides guidance for cutoff [...] Standards of Medical Care in Diabetes 2016, [place] Diabetes Association. Diabetes Care. 2016.39(Suppl 1).Performed By: #### 07086-4, 65822-0 ####[facility]ORY[facility]IA [id number] [place] [id number] [place] AMERICAPotassium [Moles/Vol]3.8 mmol/LNormal3.7-5.1 [facility] HospitalComment on above:Order Comment: Specimen Type: BLOOD SPECIMENOrdering Facility: [facility] Address:[address] [place], [place] [address]Performed By: #### 89094-5, 19327-9 ####[facility]ORY[facility]IA [id number] [place] [address] [place] AMERICASodium [Moles/Vol]141 mmol/ZZeyaoy965-058Gkzrpztri Hospital Comment on above:Order Comment: Specimen Type: BLOOD SPECIMENOrdering Facility: [facility] Address:[address] [place] [address] Performed By: #### 10994-0, 69323-4 ####[facility] [id number] [place] [address] [place] AMERICAUrea nitrogen [Mass/Vol]15 mg/dLNormal9-24[facility] HospitalComment on above:Order Comment: Specimen Type: BLOOD SPECIMENOrdering Facility: [facility] Address:[address] [place], [place] [address]Performed By: #### 65846-5, 01670-3 ####[facility] [id number] [place] [address] [place] AMERICAMagnesium SerPl-mCncon 18-73-1865Gizupvybn [Mass/Vol]1.9 mg/dLNormal1.7-2.3[facility] HospitalComment on above:Order Comment: Specimen Type: BLOOD SPECIMENOrdering Facility: [facility] Address:[address] [place], [place] [address]Performed By: #### 59649- 9, 87548-1 ####[facility]ORY[facility]IA [id number] [place] [id number] [place] AMERICABasic metabolic 2000 panelon 16-58-1858Uxrdt gap [Moles/Vol]16 mmol/LHigh8-15[facility] HospitalComment on above:Order Comment: Specimen Type: BLOOD SPECIMEN Ordering Facility: [facility] Address: [address] [place] [id number] By: #### MPO #### [facility] CLIA [id number] [address] [place] [address] 447[address]Mhkwdgc [Mass/Vol]9.0 mg/dLNormal8.5-10.2[facility] HospitalComment on above:Order Comment: Specimen Type: BLOOD SPECIMEN Ordering Facility: [facility] Address: [address] [place], [place] [address]Performed By: #### MPO #### [facility] CLIA [id number] [address] [place] [address]Agoygglq [Moles/Vol]99 mmol/BZikdqg52-772Bwihogslu HospitalComment on above:Order Comment: Specimen Type: BLOOD SPECIMEN Ordering Facility: [facility] Address: [address] [place], [place] [address]Performed By: #### MPO #### [facility] CLIA [id number] [address] [place] [address] [id number] [Moles/Vol]24 mmol/AJvsijy31-40Fxmqevivi HospitalComment on above:Order Comment: Specimen Type: BLOOD SPECIMEN Ordering Facility: [facility] Address: [address] [place], [place] [address]Performed By: #### MPO #### [facility] CLIA [id number] [address] [place] [address] 23194Muxvoulibd [Mass/Vol]0.98 mg/dLNormal0.73-1.22 [facility] HospitalComment on above:Order Comment: Specimen Type: BLOOD SPECIMEN Ordering Facility: [facility] Address: [address] [place], [place] [address]Performed By: #### MPO #### [facility] CLIA [id number] [address] [place] [address] 675[address]Fxqbuouddc and Glomerular filtration rate.predicted panel (S/P/Bld)82 mL/min/1.73m???Normal>=60[facility] HospitalComment on above: Order Comment: Specimen Type: BLOOD SPECIMEN Ordering Facility: [facility] Address: [address] [place] [address]Wsbosh Comment: Estimated Glomerular Filtration Rate (eGFR) is [...] reflect actual GFR.Performed By: #### MPO #### [facility] CLIA [id number] [address] [place] [address] 54047Qrkbtys [Mass/Vol]109 mg/bIGyol82-06Jumlrrvsx HospitalComment on above:Order Comment: Specimen Type: BLOOD SPECIMEN Ordering Facility: [facility] Address: [address] [place], [place] [address]Result Comment: The [place] Diabetes Association (ADA) provides guidance for cutoff [...] Standards of Medical Care in Diabetes 2016, [place] Diabetes Association. Diabetes Care. 2016.39(Suppl 1).Performed By: #### MPO #### [facility] CLIA [id number] [address] [place] [address] 93467Uafpbelay [Moles/Vol]3.3 mmol/LLow3.7-5.1[facility] HospitalComment on above:Order Comment: Specimen Type: BLOOD SPECIMEN Ordering Facility: [facility] Address: [address] [place] [address] 36338Havwickkc By: #### MPO #### [facility] CLIA [id number] [address] [place] [address] 53020Adxvdu [Moles/Vol]139 mmol/DWheiqc993-078Stjgssmhg HospitalComment on above:Order Comment: Specimen Type: BLOOD SPECIMEN Ordering Facility: [facility] Address: [address] [place], [place] [address]Xnwunjotz By: #### MPO #### [facility] CLIA [id number] [address] [place] [address] 27595Zorf nitrogen [Mass/Vol]12 mg/dLNormal9-24[facility] HospitalComment on above:Order Comment: Specimen Type: BLOOD SPECIMEN Ordering Facility: [facility] Address: [address] [place] [address] [id number] By: #### MPO #### [facility] CLIA [id number] [address] [place] [address] 37081UNR panel Auto (Bld)on 16-55-9287Cgtbnpjccbo distribution width (RBC) [Ratio]15.3 %High11.5-15.0[facility] HospitalComment on above:Order Comment: Specimen Type: BLOOD SPECIMEN Ordering Facility: [facility] Address: [address] [place] [address] 90107Khkccxfas By: #### MPO #### [facility] CLIA [id number] [address] [place] [address] 14028Koyrwwysxm (Bld) [Volume fraction]39.3 %Normal 39.0-51.0[facility] HospitalComment on above:Order Comment: Specimen Type: BLOOD SPECIMEN Ordering Facility: [facility] Address: [address] [place] [address] 40365Eqahvnxdm By: #### MPO #### [facility] CLIA [id number] [address] [place] [address] 61110Wslorieyif (Bld) [Mass/Vol]12.7 g/dLLow13.0-17.0 [facility] HospitalComment on above:Order Comment: Specimen Type: BLOOD SPECIMEN Ordering Facility: [facility] Address: [address] [place], [place] [address]Iwnwvkbwq By: #### MPO #### [facility] CLIA [id number] [address] [place] [address] [id number] (RBC) [Entitic mass]29.6 ajCdodyq50.0-34.0 [facility] HospitalComment on above:Order Comment: Specimen Type: BLOOD SPECIMEN Ordering Facility: [facility] Address: [address] [id number] By: #### MPO #### [facility] CLIA [id number] [address] [place] [address] 71053RUGZ (RBC) [Mass/Vol]32.3 g/kUXvjqad71.5-36.0 [facility] HospitalComment on above:Order Comment: Specimen Type: BLOOD SPECIMEN Ordering Facility: [facility] Address: [address] [place], [place] [address]Performed By: #### MPO #### [facility] CLIA [id number] [address] [place] [address] 35035QFO (RBC) [Entitic vol]91.6 fGTzhcic48.0-100.0 [facility] HospitalComment on above:Order Comment: Specimen Type: BLOOD SPECIMEN Ordering Facility: [facility] Address: [address] [place], [place] [address]Performed By: #### MPO #### [facility] CLIA [id number] [address] [place] [address] 39274Edevrmucy RBC (Bld) [#/Vol]10*3/uLNormal<0.01 [facility] HospitalComment on above:Order Comment: Specimen Type: BLOOD SPECIMEN Ordering Facility: [facility] Address: [address] [id number] By: #### MPO #### [facility] CLIA [id number] [address] [place] [address] 65542Bsthyjbc mean volume (Bld) [Entitic vol]10.2 fL Normal9.0-12.7[facility] HospitalComment on above:Order Comment: Specimen Type: BLOOD SPECIMEN Ordering Facility: [facility] Address: [facility] [place], [place] [address]Performed By: #### MPO #### [facility] CLIA [id number] [address] [place] [address] 06767Jovpkpxlm (Bld) [#/Vol]250 10*3/oBGunlnk393-681 [facility] StoughtonComment on above:Order Comment: Specimen Type: BLOOD SPECIMEN Ordering Facility: [facility] Address: [address] [place], [place] [address]Performed By: #### MPO #### [facility] CLIA [id number] [address] [place] [address] 41805GWF (Bld) [#/Vol]4.29 10*6/uLNormal4.20-6.00 [facility] StoughtonComment on above:Order Comment: Specimen Type: BLOOD SPECIMEN Ordering Facility: [facility] Address: [address] [place], [place] [address]Performed By: #### MPO #### [facility] CLIA [id number] [address] [place] [address] 75175KDT (Bld) [#/Vol]5.83 10*3/uLNormal3.70-11.00 [facility] StoughtonComment on above:Order Comment: Specimen Type: BLOOD SPECIMEN Ordering Facility: [facility] Address: [address] [place], [place] [address]Performed By: #### MPO #### [facility] CLIA [id number] [address] [place] [address] 65068IUBYVQD PROGon 25-65-0590UPIOBIF PRONO ID: [id number] Author: TITA LANDRY APRN.SET UP MECHANIC AUTOMATIC LINE Service: Thoracic Surgery Author Type: Nurse Practitioner Type: Consult Progress Note Filed: 12/22/2023 12:57 Note Text: [facility] THORACIC SURGERY CONSULT PROGRESS NOTE Sav Raymundo [id number] PRIMARY SERVICE: Internal Medicine HOSPITAL DAY: # [...] service, s/p R VATS 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 Remigio Landry, LETICIA.SET UP MECHANIC AUTOMATIC LINE Pager [phone] 12/22/2023 12:17 PMNormalHillcrest HospitalMagnesium SerPl-mCncon 75-49-8370Ltzffmsfq [Mass/Vol]1.6 mg/dLLow1.7-2.3Hillcre HospitalComment on above:Order Comment: Specimen Type: BLOOD SPECIMEN Ordering Facility: [facility] Address: [place], [place] [address]Rpoqgicpr By: #### MPO #### [facility] CLIA [id number] [address] [place] [address] [place] [address] 28779QF ABDOMEN 1V SUPINEon 53-58-4069BH ABDOMEN 1V SUPINE* * *Final Report* * [...] MD on Dec 23 2023 12:20AM EST [id number] Health Specialty Hospital Of Stoughton25([place])D3 [facility] 12-21-2023 25-hydroxyvitamin D3 [Mass/Vol]37.2 ng/zSTvhjzu79.0-80.0[facility] Comment on above:Order Comment: Specimen Type: BLOOD SPECIMEN Ordering Facility: [facility] Address: [address] [place], [place] [address]Performed By: #### 52886-5 #### [facility] CLIA [id number] [address] [place], [place] [address] 12-21-2023 [facility]: [id number] Author: ROSIE STRINGER RT(R) Service: Radiology Author Type: Remarketing Manager Type: Allied Health Filed: 12/21/2023 18:11 [...] PATIENT PRESENTS WITH AN IMPLANTABLE OR ATTACHED BRAND SPECIALIST: No RADIOLOGY DEPARTMENT: Ultrasound PERIPHERAL IV DATA: Not applicable SIGNED BY: Rosie Stringer RT(R) December 21, 2023 6:11 PMNormalHiWrentham Developmental Center panel Auto (Bld)on 12-21-2023 Erythrocyte distribution width (RBC) [Ratio]15.3 %High11.5-15.0[facility] HospitalComment on above:Order Comment: Specimen Type: BLOOD SPECIMEN Ordering Facility: [facility] Address: [address] [place], [place] [address]Performed By: #### 50407-9 #### [facility] CLIA [id number] [address] [place] [address] [facility]DMAN HOSPITALHematocrit (Bld) [Volume fraction]36.3 %Low39.0-51.0[facility] HospitalComment on above:Order Comment: Specimen Type: BLOOD SPECIMEN Ordering Facility: [facility] Address: [address] [place], [place] [address]Performed By: #### 35423-4 #### [facility] CLIA [id number] [address] [place] [address] [place] OF AMERICAHemoglobin (Bld) [Mass/Vol] 11.8 g/dLLow13.0-17.0[facility] HospitalComment on above:Order Comment: Specimen Type: BLOOD SPECIMEN Ordering Facility: [facility] Address: [address] [place], [place] [address]Performed By: #### 64745-5 #### [facility] CLIA [id number] [address] [place] [address] [place] AMERICAMCH (RBC) [Entitic mass]29.8 vdQhobve38.0-34.0[facility] HospitalComment on above:Order Comment: Specimen Type: BLOOD SPECIMEN Ordering Facility: [facility] Address: [address] [place], [place] [address]Performed By: #### 55858-5 #### [facility] CLIA [id number] [address] [place], [place] [address]MCHC (RBC) [Mass/Vol]32.5 g/iFSszlgc74.5-36.0[facility] HospitalComment on above:Order Comment: Specimen Type: BLOOD SPECIMEN Ordering Facility: [facility] Address: [address] [place], [place] [address]Performed By: #### 38086-4 #### [facility] CLIA [id number] [address] [place], [place] [address]MCV (RBC) [Entitic vol]91.7 rNBpnlao01.0-100.0[facility] HospitalComment on above:Order Comment: Specimen Type: BLOOD SPECIMEN Ordering Facility: [facility] Address: [address] [place], [place] [address]Performed By: #### 20084-8 #### [facility] CLIA [id number] [address] [place], [place] [address]ucleated RBC (Bld) [#/Vol] 10*3/uLNormal<0.01[facility] HospitalComment on above:Order Comment: Specimen Type: BLOOD SPECIMEN Ordering Facility: [facility] Address: [address] [place], [place] [address]Performed By: #### 61249-9 #### [facility] CLIA [id number] [address] [place] [address] [facility] BOARDMAN HOSPITALPlatelet mean volume (Bld) [Entitic vol]10.0 fLNormal9.0-12.7[facility] HospitalComment on above:Order Comment: Specimen Type: BLOOD SPECIMEN Ordering Facility: [facility] Address: [address] [place], [place] [address]Performed By: #### 88334-0 #### [facility] CLIA [id number] [address] [place] [address] [place] AMERICAPlatelets (Bld) [#/Vol]215 10*3/wVGrpebv659-411Wjvkdjpiu HospitalComment on above:Order Comment: Specimen Type: BLOOD SPECIMEN Ordering Facility: [facility] Address: [address] [place], [place] [address]Performed By: #### 79941-3 #### [facility] CLIA [id number] [address] [place], [place] [address]RB (Bld) [#/Vol]3.96 10*6/uLLow4.20-6.00[facility] HospitalComment on above:Order Comment: Specimen Type: BLOOD SPECIMEN Ordering Facility: [facility] Address: [address] [place], [place] [address]Performed By: #### 06394-1 #### [facility] CLIA [id number] [address] [place], [place] [address]WBC (Bld) [#/Vol]6.12 10*3/uLNormal3.70-11.00[facility] HospitalComment on above:Order Comment: Specimen Type: BLOOD SPECIMEN Ordering Facility: [facility] Address: [address] [place], [place] [address]Performed By: #### 15183-0 #### [facility] CLIA [id number] [address] [place] [address] AMERICACONSULTon [id number] HNO ID: [id number] Author: RONALDO FLOOD MD, PhD Service: Thoracic Surgery Author Type: Physician Type: Consults Filed: 12/22/2023 10:17 Note Text: [facility] CONSULT NOTE Sav Raymundo [id number] Requesting Provider: Alpa Oliva CNP Cardiothoracic Physician: Ronaldo Flood MD Admit Date: 12/20/2023 LOS : 1 Chief Complaint: Recurrent Effusion HPI: Sav Raymundo is a 73 y/o male referred by Alpa Oliva CNP for an opinion regarding management of recurrent right pleural effusion. 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, right Pleurx catheter insertion [...] reviewed: No additional systems (more content not included)...NormalHillcreJohn Randolph Medical Center-mCncon 17-58-1261SME [Mass/Vol]1.8 mg/dLHigh<0.9[facility] HospitalComment on above:Order Comment: Specimen Type: BLOOD SPECIMEN Ordering Facility: [facility] Address: [address] [place], [place] [address]Performed By: #### 1987-10, #### [facility] CLIA [id number] [address] [place] [address] [place] OF AMERICAComprehensive metabolic 2000 panelon 02-43-8855Edsicvq [Mass/Vol]3.4 g/dLLow3.9-4.9[facility] HospitalComment on above:Order Comment: Specimen Type: BLOOD SPECIMEN Ordering Facility: [facility] Address: [address] [place], [place] [address]Performed By: #### 1987-10, #### [facility] CLIA [id number] [address] [place] [address] [place] AMERICAALP [Catalytic activity/Vol] 100 U/BTxlftf21-242Tpyoygelw HospitalComment on above:Order Comment: Specimen Type: BLOOD SPECIMEN Ordering Facility: [facility] Address: [address] [place], [place] [address]Performed By: #### 1987-10, #### [facility] CLIA [id number] [address] [place] [address] [place] AMERICAALT [Catalytic activity/Vol] 11 U/VThzjoa89-26Ayezpomvi HospitalComment on above:Order Comment: Specimen Type: BLOOD SPECIMEN Ordering Facility: [facility] Address: [address] [place], [place] [address]Performed By: #### 1987-10, #### [facility] CLIA [id number] [address] [place] [address] [place] AMERICAAnion gap [Moles/Vol]13 mmol/LNormal8-15[facility] HospitalComment on above:Order Comment: Specimen Type: BLOOD SPECIMEN Ordering Facility: [facility] Address: [address] [place], [place] [address]Performed By: #### #### [facility] CLIA [id number] [address] [place] [address] [place] AMERICAAST [Catalytic activity/Vol] 18 U/IMogrou53-30Dwzktzigi HospitalComment on above:Order Comment: Specimen Type: BLOOD SPECIMEN Ordering Facility: [facility] Address: [address] [place], [place] [address]Performed By: #### 1987-10, #### [facility] CLIA [id number] [address] [place] [address] [place] AMERICABilirubin [Mass/Vol]0.8 mg/dL Normal0.2-1.3[facility] HospitalComment on above:Order Comment: Specimen Type: BLOOD SPECIMEN Ordering Facility: [facility] Address: [address] [place], [place] [address]Performed By: #### #### [facility] CLIA [id number] [address] [place] [address] [place] AMERICACalcium [Mass/Vol]8.7 mg/dL Normal8.5-10.2[facility] HospitalComment on above:Order Comment: Specimen Type: BLOOD SPECIMEN Ordering Facility: [facility] Address: [address] [place], [place] [address]Performed By: #### 1987-10, #### [facility] CLIA [id number] [address] [place] [address] [place] AMERICAChloride [Moles/Vol]106 mmol/BKsfgly45-030Ffkrsipmo HospitalComment on above:Order Comment: Specimen Type: BLOOD SPECIMEN Ordering Facility: [facility] Address: [address] [place], [place] [address]Performed By: #### 1987-10, #### [facility] CLIA [id number] [address] [place] [address] [place] AMERICACO2 [Moles/Vol]19 mmol/LLow 22-30[facility] HospitalComment on above:Order Comment: Specimen Type: BLOOD SPECIMEN Ordering Facility: [facility] Address: [address] [place], [place] [address]Performed By: #### 1987-10, #### [facility] CLIA [id number] [address] [place] [address] [place] AMERICACreatinine [Mass/Vol]0.86 mg/dLNormal0.73-1.22[facility] HospitalComment on above:Order Comment: Specimen Type: BLOOD SPECIMEN Ordering Facility: [facility] Address: [address] [place], [place] [address]Performed By: #### 1987-10, #### [facility] IA [id number] [address] [place] [address] [place] AMERICACreatinine and Glomerular filtration rate.predicted panel (S/P/Bld)92 mL/min/1.73m???Normal>=60[facility] Hospital Of StoughtonComment on above:Order Comment: Specimen Type: BLOOD SPECIMEN Ordering Facility: [facility] Address: [address] [place], [place] [address]Result Comment: Estimated Glomerular Filtration Rate (eGFR) is [...] reflect actual GFR.Performed By: #### 1987-10, #### [facility] CLIA [id number] [address] [place] [address] [place] AMERICAGlucose [Mass/Vol]115 mg/dL Evol47-02Reattpitp HospitalComment on above:Order Comment: Specimen Type: BLOOD SPECIMEN Ordering Facility: [facility] Address: [address] [place], [place] [address]Result Comment: The [place] Diabetes Association (ADA) provides guidance for cutoff [...] Standards of Medical Care in Diabetes 2016, [place] Diabetes Association. Diabetes Care. 2016.39(Suppl 1).Performed By: #### #### [facility] CLIA [id number] [address] [place] [address] [place] AMERICAPotassium [Moles/Vol]3.9 mmol/LNormal3.7-5.1[facility] HospitalComment on above:Order Comment: Specimen Type: BLOOD SPECIMEN Ordering Facility: [facility] Address: [address] [place], [place] [address]Performed By: #### #### [facility] CLIA [id number] [address] [place] [address] [place] AMERICAProtein [Mass/Vol]6.4 g/dL Normal6.3-8.0[facility] HospitalComment on above:Order Comment: Specimen Type: BLOOD SPECIMEN Ordering Facility: [facility] Address: [address] [place], [place] [address]Performed By: #### #### [facility] CLIA [id number] [address] [place] [address] [place] AMERICASodium [Moles/Vol]138 mmol/L Nnrojz693-079Ouzdpxbvc HospitalComment on above:Order Comment: Specimen Type: BLOOD SPECIMEN Ordering Facility: [facility] Address: [address] [place], [place] [address]Performed By: #### #### [facility] CLIA [id number] [address] [place] [address] [place] AMERICAUrea nitrogen [Mass/Vol]12 mg/dLNormal9-24[facility] HospitalComment on above:Order Comment: Specimen Type: BLOOD SPECIMEN Ordering Facility: [facility] Address: [address] [place], [place] [address]Performed By: #### 1988-5, 42147-6 #### [facility] CLIA [id number] [address] [place] [address] [place] AMERICACyclic citrullinated peptide IgG Qnon 32-98-5970RRI ANTIBODY IGG QUALITATIVENegativeNormalNegativeRansom Canyon HospitalComment on above:Order Comment: Specimen Type: BLOOD SPECIMEN Ordering Facility: [facility] Address: [address] [place], [place] [address]Performed By: #### 47304-1 #### [facility] CLIA [id number] [address] [place] [address] STATES OF AMERICAESR Westergren method (Bld) [Velocity]on 70-85-1132HXV (Bld) [Velocity]33 mm/hHbeckley appalachian regional hospital015[facility] Comment on above:Order Comment: Specimen Type: BLOOD SPECIMEN Ordering Facility: [facility] Address: [address] [place], [place] [address]Performed By: #### MPO #### [facility] CLIA [id number] [address] [place], [place] [address]HISTORY PHYSICALon 78-70-8149NOXFKLA PHYSICALHNO ID: [id number] Author: JOSE ANTONIO HOPPER MD Service: Family [...] not included)...NormalHillcrest HospitalNuclear Ab IA Ql (S)on 02-61-0943CWM SCR QUALNegativeNormalNegativeHillcrest HospitalComment on above:Order Comment: Specimen Type: BLOOD SPECIMEN Ordering Facility: [facility] Address: [address] [place], [place] [address]Result Comment: The qualitative antinuclear antibody screen test performed using the following antigens: dsDNA, Chromatin, Ribosomal P, SS-A 60, SS-A 52, SS-B, Sm, SmRNP, LICENSED AND CERTIFIED MIDWIFE A, LICENSED AND CERTIFIED MIDWIFE 68, Scl- 70, Alice-1,and Centromere B. Methodology: Multiplex flow immunoassay.Performed By: #### 08685-2 #### [facility] CLIA [id number] [address] [place] [address] [place] AMERICAPROTEINASE 3 ANTIBODYon 22-84-8394Tyexfqcmgv 3 Ab Qn (S)<0.2Normal<1.0[facility] HospitalComment on above:Order Comment: Specimen Type: BLOOD SPECIMEN Ordering Facility: [facility] Address: [address] [place], [place] [address]Performed By: #### 13450-9 #### [facility] [place] [id number] [address] [place] [address] [place] AMERICARheumatoid fact SerPl-aCncon 26-61-0665Sfgwwsvyob factor Qn[IU]/mLNormal<16[facility] HospitalComment on above:Order Comment: Specimen Type: BLOOD SPECIMEN Ordering Facility: [facility] Address: [address] [place], [place] [address]Performed By: #### 05547-9 #### [facility] CLIA [id number] [address] [place] [address] [place] AMERICAUS ABD RIGHT UPPER QUADRANT on 87-04-6057XM ABD RIGHT UPPER QUADRANT* * *Final Report* [...] FERMIN MD on Dec 22 2023 3:17PM [facility] [id number] Union Hospital Chest PA and Lateralon 66-92-3484NDIICSIMHW: Stable exam with a persistent right pleural effusion. Transcribed Using Voice Recognition Transcribe Date/Time: Dec 21 2023 10:02A Dictated by: JEFFREY KRUEGER MD This examination was interpreted and the report reviewed and electronically signed by: JEFFREY KRUEGER MD on Dec 21 2023 10:03AM [facility]* * *Final Report* * * [...] cardiomediastinal silhouette. Bones and soft tissues: Unremarkable. [facility] RADIOLOGYProvider, [facility] [place] - 12/21/2023 * * *Final Report* * [...] 10:03AM EST [facility] Chest PA and LateralOrdered By: Cc Provider on 12-21-2023 [facility]-FairhillcCP IgG SerPl-aCncon 53-54-6513Vjnxws citrullinated peptide IgG Qn<15Normal<20[facility] HospitalComment on above:Order Comment: Specimen Type: BLOOD SPECIMEN Ordering Facility: [facility] Address: [address] [place], [place] [address]Performed By: #### 14474-5 #### [facility] CLIA [id number] [address] [place] [address] 12-20-2023 ALLIED HEALTHHNO ID: [id number] Author: AMNA MASSEY RT(R) Service: ? Author [...] PATIENT PRESENTS WITH AN IMPLANTABLE OR ATTACHED BRAND SPECIALIST: No ALLERGIES: Reviewed and unchanged CONTRAST ALLERGY: [...] PERIPHERAL IV DATA: Inpatient - refer to [facility] documentation RADIOLOGY DEPARTMENT: CT; Exam(s) Completed: Abdomen/Pelvis SIGNATURE: RT Arely(R) PATIENT NAME: Sav Raymundo DATE: December 20, 2023 TIME: 5:06 [facility] [place]: [id number] Author: OBI HAAS Tech Service: Radiology Author Type: Pier Master Type: Man[employer] Filed: 12/20/2023 15:12 Note Text: Radiology [...] PATIENT PRESENTS WITH AN IMPLANTABLE OR ATTACHED BRAND SPECIALIST: No RADIOLOGY DEPARTMENT: General X-ray: Exam(s) Completed: Chest X-Ray PERIPHERAL IV DATA: Not applicable SIGNED BY: Levy Castanon December 20, 2023 3:12 [facility] (Bld) on 39-33-8424Lbdaunzee (Bld) [#/Vol]0.05 10*3/uLNormal<0.11[facility] Comment on above:Order Comment: Specimen Type: BLOOD SPECIMEN Ordering Facility: [facility] Address: [address] [place], [place] [address]Performed By: #### MPO #### [facility] CLIA [id number] [address] [place], [place] [id number]/100 WBC (Bld)0.7 %[facility] Comment on above:Order Comment: Specimen Type: BLOOD SPECIMEN Ordering Facility: [facility] Address: [address] [place], [place] [address]Performed By: #### MPO #### [facility] CLIA [id number] [address] [place] [address] [id number] cell count method Nom (Bld)AutoNormal [facility] StoughtonComment on above:Order Comment: Specimen Type: BLOOD SPECIMEN Ordering Facility: [facility] Address: [address] [place], [place] [address]Performed By: #### MPO #### [facility] CLIA [id number] [address] [place] [address] 71091Fqwuhtjewxt (Bld) [#/Vol]0.20 10*3/uLNormal<0.46 [facility] HospitalComment on above:Order Comment: Specimen Type: BLOOD SPECIMEN Ordering Facility: [facility] Address: [address] [place], [place] [address]Performed By: #### MPO #### [facility] CLIA [id number] [address] [place] [address] 32269Brsugkuqivw/100 WBC (Bld)2.9 %NormalRansom Canyon HospitalComment on above:Order Comment: Specimen Type: BLOOD SPECIMEN Ordering Facility: [facility] Address: [address] [place], [place] [address]Performed By: #### MPO #### [facility] CLIA [id number] [address] [place] [address] 99242Wawulvizuzv distribution width (RBC) [Ratio]15.3 % High11.5-15.0[facility] HospitalComment on above:Order Comment: Specimen Type: BLOOD SPECIMEN Ordering Facility: [facility] Address: [address] [place], [place] [address]Performed By: #### MPO #### [facility] CLIA [id number] [address] [place] [address] 04615Atkrntimct (Bld) [Volume fraction]39.8 %Normal 39.0-51.0[facility] HospitalComment on above:Order Comment: Specimen Type: BLOOD SPECIMEN Ordering Facility: [facility] Address: [address] [place], [place] [address]Performed By: #### MPO #### [facility] CLIA [id number] [address] [place] [address] 56639Snqutqsxvj (Bld) [Mass/Vol]12.7 g/dLLow13.0-17.0 [facility] HospitalComment on above:Order Comment: Specimen Type: BLOOD SPECIMEN Ordering Facility: [facility] Address: [address] [place], [place] [address]Performed By: #### MPO #### [facility] CLIA [id number] [address] [place] [address] 11302Zervuzkj granulocytes (Bld) [#/Vol]0.05 10*3/uL Normal<0.10[facility] HospitalComment on above:Order Comment: Specimen Type: BLOOD SPECIMEN Ordering Facility: [facility] Address: [address] [place], [place] [address]Performed By: #### MPO #### [facility] CLIA [id number] [address] [place] [address] 74127Bjvaqzzf granulocytes/100 WBC (Bld)0.7 %Normal [facility] HospitalComment on above:Order Comment: Specimen Type: BLOOD SPECIMEN Ordering Facility: [facility] Address: [address] [place], [place] [address]Performed By: #### MPO #### [facility] CLIA [id number] [address] [place] [address] 71096Jpvremdokww (Bld) [#/Vol]1.26 10*3/uLNormal1.00-4.00 [facility] HospitalComment on above:Order Comment: Specimen Type: BLOOD SPECIMEN Ordering Facility: [facility] Address: [address] [place], [place] [address]Performed By: #### MPO #### [facility] CLIA [id number] [address] [place] [address] 85927Bjipntkanlw/100 WBC (Bld)18.0 %NormalRansom Canyon HospitalComment on above:Order Comment: Specimen Type: BLOOD SPECIMEN Ordering Facility: [facility] Address: [address] [place], [place] [address]Performed By: #### MPO #### [facility] CLIA [id number] [address] [place] [address] 48108YDW (RBC) [Entitic mass]29.9 miJuqvcc31.0-34.0 [facility] HospitalComment on above:Order Comment: Specimen Type: BLOOD SPECIMEN Ordering Facility: [facility] Address: [address] [place], [place] [address]Performed By: #### MPO #### [facility] CLIA [id number] [address] [place] [address] 83151HBNI (RBC) [Mass/Vol]31.9 g/bYXppexd35.5-36.0 [facility] HospitalComment on above:Order Comment: Specimen Type: BLOOD SPECIMEN Ordering Facility: [facility] Address: [facility] [place], [place] [address]Performed By: #### MPO #### [facility] CLIA [id number] [address] [place] [address] 18921BKR (RBC) [Entitic vol]93.6 xXMwfgcf38.0-100.0 [facility] HospitalComment on above:Order Comment: Specimen Type: BLOOD SPECIMEN Ordering Facility: [facility] Address: [address] [place], [place] [address]Performed By: #### MPO #### [facility] CLIA [id number] [address] [place] [address] 45895Bkbwdbypm (Bld) [#/Vol]0.66 10*3/uLNormal<0.87 [facility] HospitalComment on above:Order Comment: Specimen Type: BLOOD SPECIMEN Ordering Facility: [facility] Address: [address] [place], [place] [id number] By: #### MPO #### [facility] CLIA [id number] [address] [place] [address] 87173Eewiqqkde/100 WBC (Bld)9.4 %[facility] Comment on above:Order Comment: Specimen Type: BLOOD SPECIMEN Ordering Facility: [facility] Address: [address] [place], [place] [address]Performed By: #### MPO #### [facility] CLIA [id number] [address] [place] [address] 27201Uyhrbehfnmp (Bld) [#/Vol]4.78 10*3/uLNormal1.45-7.50 [facility]oughtonComment on above:Order Comment: Specimen Type: BLOOD SPECIMEN Ordering Facility: [facility] Address: [address] [place], [place] [address]Performed By: #### MPO #### [facility] CLIA [id number] [address] [place] [address] 56877Dqkbxqxclqk/100 WBC (Bld)68.3 %NormalRansom Canyon HospitalComment on above:Order Comment: Specimen Type: BLOOD SPECIMEN Ordering Facility: [facility] Address: [address] [id number] By: #### MPO #### [facility] CLIA [id number] [address] [place] [address] 12981Dicjkrpnd RBC (Bld) [#/Vol]10*3/uLNormal<0.01 [facility] HospitalComment on above:Order Comment: Specimen Type: BLOOD SPECIMEN Ordering Facility: [facility] Address: [address] [place], [place] [address]Performed By: #### MPO #### [facility] CLIA [id number] [address] [place] [address] 41774Hiwlzpjuc RBC/100 WBC (Bld) [Ratio]0.0 /100 WBC NormalRansom Canyon HospitalComment on above:Order Comment: Specimen Type: BLOOD SPECIMEN Ordering Facility: [facility] Address: [address] [place], [place] [address]Performed By: #### MPO #### [facility] CLIA [id number] [address] [place] [address] 38054Uufuqehe mean volume (Bld) [Entitic vol]10.1 fL Normal9.0-12.7[facility] HospitalComment on above:Order Comment: Specimen Type: BLOOD SPECIMEN Ordering Facility: [facility] Address: [address] [place], [place] [address]Performed By: #### MPO #### [facility] CLIA [id number] [address] [place] [address] 92284Nbtuavtiv (Bld) [#/Vol]229 10*3/zRFshkot242-055 [facility] HospitalComment on above:Order Comment: Specimen Type: BLOOD SPECIMEN Ordering Facility: [facility] Address: [address] [place], [place] [address]Performed By: #### MPO #### [facility] CLIA [id number] [address] [place] [address] 73929WHJ (Bld) [#/Vol]4.25 10*6/uLNormal4.20-6.00 [facility]Com[facility] on above:Order Comment: Specimen Type: BLOOD SPECIMEN Ordering Facility: [facility] Address: [address] [place] [address] 83322Uztwqdyri By: #### MPO #### [facility] CLIA [id number] [address] [place] [address] 67927GPG (Bld) [#/Vol]7.00 10*3/uLNormal3.70-11.00 [facility] StoughtonComment on above:Order Comment: Specimen Type: BLOOD SPECIMEN Ordering Facility: [facility] Address: [address] [place] [address] 88647Tffzvixxf By: #### MPO #### [facility] CLIA [id number] [address] [place] [address] 74289JXBXgq 33-41-7483GYUDXavvpi Visit (BERNARD) SAV RAYMUNDO ([id number]) 1950 M Date Time Provider Department 12/20/23 2:00 PM TITA LANDRY During your visit today, we recorded the following information about you: Temperature Respiration Weight Height 97.3 degrees 18/minute 104.8 kg 1.829 m Tita Landry APRN.CNP 01/19/2024 9:56 PM Signed [facility] DEPARTMENT OF THORACIC SURGERY OUTPATIENT VISIT DATE December 20, 2023 OUTPATIENT VISIT TYPE ESTABLISHED PT NAME: Sav Raymundo [facility] NO: [id number] THORACIC SURGEON: Ronaldo Flood M.D. 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 Right pleura, biopsy: - Chronic pleuritis with mesothelial hyperplasia (see comment). B. Right pleura, biopsy: - Acute organizing and chronic pleuritis (see comment). ND/ 11/22/2023 Diagnosis Comment A. The biopsy contains [...] reactive proliferation. Drs. Della Subramanian and Zeus Akrichardsonnyu [facility] have also reviewed this case and [...] ever since surgery. Note (more content not included)...NormalPam Health Specialty Hospital Of StoughtonCT ABD/PEL W IVCONon 62-82-5224GW ABD/PEL W IVCON* * *Final Report* * * DATE OF EXAM: Dec 20 2023 5:12PM [facility] 0530 - CT ABD/PEL W IVCON [...] on Dec 20 2023 5:40PM EST [id number] [facility] Centerest [facility] 12-20-2023 Cholesterol [Mass/Vol]106 mg/dLNormal<200[facility] HospitalComment on above: Order Comment: Specimen Type: BLOOD SPECIMEN Ordering Facility: [facility] Address: [address] [place], [place] [address]Result Comment: <200 mg/dL, Desirable 200-239 mg/dL, Borderline high >239 mg/dL, High Reference: 1. National Cholesterol Education Program ATP III Guideline At-A-Glance Quick Desk Reference: National Heart, Lung, and Blood Independence. National Institutes of Health. 2001: NIH Publication No. 01-3305.Performed By: #### 78674-3 #### [facility] CLIA [id number] [address] [place] [address] [place] OF AMERICAComprehensive metabolic 2000 panelon 50-95-4233Vxaibdz [Mass/Vol]4.0 g/dLNormal3.9-4.9HTruesdale Hospital Comment on above:Order Comment: Specimen Type: BLOOD SPECIMEN Ordering Facility: [facility] Address: [address] [place], [place] [address]Performed By: #### 1987-10, #### [facility] CLIA [id number] [address] [place] [address] [place] AMERICAALP [Catalytic activity/Vol] 110 U/QEyrymz31-556Fnvddvrvs HospitalComment on above:Order Comment: Specimen Type: BLOOD SPECIMEN Ordering Facility: [facility] Address: [address] [place], [place] [address]Performed By: #### 1987-10, #### [facility] CLIA [id number] [address] [place] [address] [place] AMERICAALT [Catalytic activity/Vol] 13 U/PBjaojs49-04Aybixsdnp HospitalComment on above:Order Comment: Specimen Type: BLOOD SPECIMEN Ordering Facility: [facility] Address: [address] [place], [place] [address]Performed By: #### 1987-10, #### [facility] CLIA [id number] [address] [place] [address] [place] AMERICAAnion gap [Moles/Vol]12 mmol/LNormal8-15[facility] HospitalComment on above:Order Comment: Specimen Type: BLOOD SPECIMEN Ordering Facility: [facility] Address: [address] [place], [place] [address]Performed By: #### 1987-10, #### [facility] CLIA [id number] [address] [place] [address] [place] AMERICAAST [Catalytic activity/Vol] 20 U/DXjbqvy51-14Izeuoylhm HospitalComment on above:Order Comment: Specimen Type: BLOOD SPECIMEN Ordering Facility: [facility] Address: [address] [place], [place] [address]Performed By: #### 1987-10, #### [facility] CLIA [id number] [address] [place] [address] [place] AMERICABilirubin [Mass/Vol]0.6 mg/dL Normal0.2-1.3[facility]st HospitalComment on above:Order Comment: Specimen Type: BLOOD SPECIMEN Ordering Facility: [facility] Address: [address] [place], [place] [address]Performed By: #### 1987-10, #### [facility] CLIA [id number] [address] [place] [address] [place] AMERICACalcium [Mass/Vol]9.1 mg/dL Normal8.5-10.2[facility] HospitalComment on above:Order Comment: Specimen Type: BLOOD SPECIMEN Ordering Facility: [facility] Address: [address] [place], [place] [address]Performed By: #### 1987-10, #### [facility] CLIA [id number] [address] [place] [address] [place] AMERICAChloride [Moles/Vol]105 mmol/GUkbsme81-385Gzvmjsmld HospitalComment on above:Order Comment: Specimen Type: BLOOD SPECIMEN Ordering Facility: [facility] Address: [address] [place], [place] [address]Performed By: #### #### [facility] CLIA [id number] [address] [place] [address] [place] AMERICACO2 [Moles/Vol]20 mmol/LLow 22-30[facility] HospitalComment on above:Order Comment: Specimen Type: BLOOD SPECIMEN Ordering Facility: [facility] Address: [address] [place], [place] [address]Performed By: #### 1987-10, #### [facility] CLIA [id number] [address] [place] [address] [place] AMERICACreatinine [Mass/Vol]1.07 mg/dLNormal0.73-1.22[facility] HospitalComment on above:Order Comment: Specimen Type: BLOOD SPECIMEN Ordering Facility: [facility] Address: [address] [place], [place] [address]Performed By: #### 1987-10, #### [facility] CLIA [id number] [address] [place] [address] [place] AMERICACreatinine and Glomerular filtration rate.predicted panel (S/P/Bld)74 mL/min/1.73m???Normal>=60[facility] HospitalComment on above:Order Comment: Specimen Type: BLOOD SPECIMEN Ordering Facility: [facility] Address: [address] [place], [place] [address]Result Comment: Estimated Glomerular Filtration Rate (eGFR) is [...] reflect actual GFR.Performed By: #### 1987-10, #### [facility] CLIA [id number] [address] [place] [address] [place] AMERICAGlucose [Mass/Vol]111 mg/dL Kphz57-55Nimcgcbcq HospitalComment on above:Order Comment: Specimen Type: BLOOD SPECIMEN Ordering Facility: [facility] Address: [address] [place], [place] [address]Result Comment: The [place] Diabetes Association (ADA) provides guidance for cutoff [...] Standards of Medical Care in Diabetes 2016, [place] Diabetes Association. Diabetes Care. 2016.39(Suppl 1).Performed By: #### #### [facility] CLIA [id number] [address] [place] [address] [place] AMERICAProtein [Mass/Vol]6.9 g/dL Normal6.3-8.0Hillcre HospitalComment on above:Order Comment: Specimen Type: BLOOD SPECIMEN Ordering Facility: [facility] Address: [address] [place], [place] [address]Performed By: #### #### [facility] CLIA [id number] [address] [place] [address] [place] AMERICASodium [Moles/Vol]137 mmol/L Qavghs763-174Heukuhffq HospitalComment on above:Order Comment: Specimen Type: BLOOD SPECIMEN Ordering Facility: [facility] Address: [address] [place], [place] [address]Performed By: #### #### [facility] CLIA [id number] [address] [place] [address] [place] AMERICAUrea nitrogen [Mass/Vol]15 mg/dLNormal9-24[facility] HospitalComment on above:Order Comment: Specimen Type: BLOOD SPECIMEN Ordering Facility: [facility] Address: [address] [place], [place] [address]Performed By: #### #### [facility] CLIA [id number] [address] [place] [address] [place] OF AMERICAECG COMPLETEon 02-63-2899HRA COMPLETEVentricular Rate : 83 BPM Atrial Rate : 83 BPM P-R Interval : 184 ms QRS Duration : 80 ms Q-T Interval : 348 ms QTC Calculation(Bazett) : 408 ms Calculated P [place] : 78 degrees Calculated R [place] : 3 degrees Calculated T [place] : 230 degrees POOR DATA QUALITY, INTERPRETATION MAY BE ADVERSELY AFFECTED NORMAL SINUS RHYTHM NONSPECIFIC T WAVE ABNORMALITY ABNORMAL ECG NO PREVIOUS ECGS AVAILABLE NO STEMI CONFIRMED 2057 Confirmed by MERLYN HALL MD ([id number]), market editor ROLANDO SPAULDING ([id number]) on 12/21/2023 8:32:15 AM NAME : SAV RAYMUNDO PID : [id number] : 1950 Gender : Male Race : ORD : [id number] Procedure Date : Dec 20 2023 19:12:11 Edit Date : Dec 21 2023 08:32:16 Diagnosis: POOR DATA QUALITY, INTERPRETATION MAY BE ADVERSELY AFFECTED NORMAL SINUS RHYTHM NONSPECIFIC T WAVE ABNORMALITY ABNORMAL ECG NO PREVIOUS ECGS AVAILABLE NO STEMI CONFIRMED 2057 Confirmed by MERLYN HALL MD ([id number]), market editor ROLANDO SPAULDING ([id number]) on 12/21/2023 8:32:15 AM Test Reason : Chest Pain Location : 26 : ER L ED Overread By : MERLYN HALL MD Edited By : ROLANDO SPAULDING Referred By : , Acquired by : ,NormalHillcrest HospitalED NOTEon [id number] NOTEHNO ID: [id number] Author: CHARLIE GRANGER RN Service: ? Author Type: Registered Nurse Type: ED Notes Filed: 12/20/2023 18:48 Note Text: Bed: ED-25 Expected date: Expected time: Means of arrival: Comments: triageNormalHillcrest HospitalED NOTEHNO ID: [id number] Author: KEVIN HINSON RN Service: ? Author Type: Registered Nurse Type: ED Notes Filed: 12/20/2023 14:59 Note Text: Pt arrives to ED from appointment. Pt reported had l pleural effusion done today. Reportedly gets drained multiple times per week. Pt has had incread n/v/d x1 week. 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 Pt is AANDOx3 and ambulatoryNormalHillcrest HospitalED PROV NOTEon 83-83-4025ZB PROV NOTEHNO ID: [id number] Author: MERLYN HALL DO Service: Emergency Medicine [...] (more content not included)...NormalHillcrest HospitalED Triage Noteon 36-37-1990ZM Triage NoteHNO ID: [id number] Author: RAFAELA BATISTA MD Service: Emergency Medicine [...] (radiology procedure) ECG COMPLETE SIGNATURE: Rafaela Batista MDNormalRansom Canyon HospitalGas + CO Pnl BldVon 00-88-4611Vqeliqwjy [Moles/Vol]4.6 mmol/LNormal3.7-5.1Hsouthcoast [facility] health hospital HospitalComment on above:Order Comment: Specimen Type: BLOOD SPECIMEN Ordering Facility: [facility] Address: [address] [place], [place] [address]Performed By: #### MPO #### [facility] CLIA [id number] [address] [place], [place] [address]Performed By: #### 1988-5, 14951-8 #### [facility] CLIA [id number] [address] AMERICAGas and Carbon monoxide panel (BldV)on 51-37-9435ELRA DEFICIT, VENOUS-2 mmol/FWsjqnx-1-6Bbsmkapsh Hospital Comment on above:Order Comment: Specimen Type: BLOOD SPECIMEN Ordering Facility: [facility] Address: [address] [place], [place] [address]Performed By: #### MPO #### [facility] CLIA [id number] [address] [place] [address] 06559Eckh kfrsrvzhxko04.6 [degF][facility] Comment on above:Order Comment: Specimen Type: BLOOD SPECIMEN Ordering Facility: [facility] Address: [address] [place], [place] [address]Performed By: #### MPO #### [facility] CLIA [id number] [address] [place], [place] [address]Calcium.ionized (Bld) [Mass/Vol]1.22 mmol/LNormal 1.08-1.30[facility] Hospital Of StoughtonComment on above:Order Comment: Specimen Type: BLOOD SPECIMEN Ordering Facility: [facility] Address: [address] [place], [place] [address]Performed By: #### MPO #### [facility] CLIA [id number] [address] [place], [place] [address]Carboxyhemoglobin (BldV) [Mass fraction]<1.0Normal 0.0-2.0P[facility] Hospital Of StoughtonComment on above:Order Comment: Specimen Type: BLOOD SPECIMEN Ordering Facility: [facility] Address: [address] [place] [address]Adibcr Comment: Carboxyhemoglobin Reference Range for Smokers: 2.0-8.0%Performed By: #### MPO #### [facility] CLIA [id number] [address] [place] [address] 83572Atyxmtbb [Moles/Vol]111 mmol/QVtvz93-000Ouzptahrb HospitalComment on above:Order Comment: Specimen Type: BLOOD SPECIMEN Ordering Facility: [facility] Address: [address] [place], [place] [address]Performed By: #### MPO #### [facility] CLIA [id number] [address] [place] [address] 15809IU4 (BldV) [Partial pressure]44 mm[Hg]Qpiwwt13-21 [facility] HospitalComment on above:Order Comment: Specimen Type: BLOOD SPECIMEN Ordering Facility: [facility] Address: [address] [place], [place] [address]Zuadwsytg By: #### MPO #### [facility] CLIA [id number] [address] [place] [address] 15067Jnudeow [Mass/Vol]112 mg/bYBahn52-545Deougzchs HospitalComment on above:Order Comment: Specimen Type: BLOOD SPECIMEN Ordering Facility: [facility] Address: [address] [place], [place] [address]Performed By: #### MPO #### [facility] CLIA [id number] [address] [place] [address] 35986BUT2 (Bld) [Moles/Vol]23 mmol/YBia74-36Dlksjrdbo HospitalComment on above:Order Comment: Specimen Type: BLOOD SPECIMEN Ordering Facility: [facility] Address: [address] [place], [place] [address]Performed By: #### MPO #### [facility] CLIA [id number] [address] [place] [address] 07710Djrtmrumla (Bld) [Volume fraction]39.6 %Normal 39.0-51.0[facility] StoughtonComment on above:Order Comment: Specimen Type: BLOOD SPECIMEN Ordering Facility: [facility] Address: [address] [id number] By: #### MPO #### [facility] CLIA [id number] [address] [place] [id number] (Bld) [Mass/Vol]12.9 g/dLLow13.0-17.0 [facility] HospitalComment on above:Order Comment: Specimen Type: BLOOD SPECIMEN Ordering Facility: [facility] Address: [address] [place], [place] [address]Lrvbvgbop By: #### MPO #### [facility] CLIA [id number] [address] [place] [address] [id number] [Moles/Vol]0.9 mmol/LNormal0.5-2.2[facility] HospitalComment on above:Order Comment: Specimen Type: BLOOD SPECIMEN Ordering Facility: [facility] Address: [address] [id number] By: #### MPO #### [facility] CLIA [id number] [address] [place] [address] 10687Ftxoqsejcggvq (Bld) [Mass fraction]%Normal0.0-1.5 [facility] HospitalComment on above:Order Comment: Specimen Type: BLOOD SPECIMEN Ordering Facility: [facility] Address: [address] [place], [place] [address]Performed By: #### MPO #### [facility] CLIA [id number] [address] [place] [address] [id number] THERAPYRA=Room AirNoFramingham Union HospitalComment on above:Order Comment: Specimen Type: BLOOD SPECIMEN Ordering Facility: [facility] Address: [address] [place] [address] 74257Figdmecwq By: #### MPO #### [facility] CLIA [id number] [address] [place] [address] 44881Mdfrtl (BldV) [Partial pressure]mm[Hg]Bmr85-99 [facility] StoughtonComment on above:Order Comment: Specimen Type: BLOOD SPECIMEN Ordering Facility: [facility] Address: [address] [place] [address] 68958Pgfqrayxf By: #### MPO #### [facility] CLIA [id number] [address] [place] [address] 29858Widfyc saturation in Venous blood30 %Fqe45-12 [facility] Of StoughtonComment on above:Order Comment: Specimen Type: BLOOD SPECIMEN Ordering Facility: [facility] Address: [address] [place], [place] [address]Ytlphgrmd By: #### MPO #### [facility] CLIA [id number] [address] [place] [address] 64958Tjjjcvdxddlen (BldV) [Mass fraction]29 %Kkb81-90 [facility] HospitalComment on above:Order Comment: Specimen Type: BLOOD SPECIMEN Ordering Facility: [facility] Address: [address] [place], [place] [address]Performed By: #### MPO #### [facility] CLIA [id number] [address] [place] [address] 52319bI (BldV)7.34 [pH]Normal7.32-7.42[facility] Comment on above:Order Comment: Specimen Type: BLOOD SPECIMEN Ordering Facility: [facility] Address: [address] [place], [place] [address]Performed By: #### MPO #### [facility] CLIA [id number] [address] [place] [address] 21966Imoiji [Moles/Vol]138 mmol/BUkfhss961-447Gvputvdem HospitalComment on above:Order Comment: Specimen Type: BLOOD SPECIMEN Ordering Facility: [facility] Address: [address] [place], [place] [address]Performed By: #### MPO #### [facility] CLIA [id number] [address] [place] [address] 46204JQQQ SENSITIVITY TROPONIN T (INITIAL)on 12-20-2023 Troponin T.cardiac High sensitivity method [Mass/Vol]13 ng/LHigh<12[facility] HospitalComment on above:Order Comment: Specimen Type: BLOOD SPECIMEN Ordering Facility: [facility] Address: [address] [place] [address] 67107Dgzlocfcf By: #### 1987-10, #### [facility] CLIA [id number] [address] [place], [place] [address]HIGH SENSITIVITY TROPONIN T (SECOND)on 63-27-9177Rwktgzui T.cardiac High sensitivity method [Mass/Vol]12 ng/LHigh<12[facility] HospitalComment on above:Order Comment: Specimen Type: BLOOD SPECIMEN Ordering Facility: [facility] Address: [address] [place] [address] 50243Cncbtgmym By: #### 1987-10, #### [facility] CLIA [id number] [facility] [address] STATES OF AMERICAHIGH SENSITIVITY TROPONIN T (THIRD) 3 HRS AFTER INITIALon 42-89-7683Gaucajcr T.cardiac High sensitivity method [Mass/Vol]11 ng/LNormal<12[facility] HospitalComment on above:Order Comment: Specimen Type: BLOOD SPECIMEN Ordering Facility: [facility] Address: [address] [place], [place] [address]Performed By: #### 61814-6 #### [facility] CLIA [id number] [address] [facility] DESK [id number] [facility] HOSPITALHISTORY PHYSICALon 42-97-3236WKVQOCY PHYSICALHNO ID: [id number] Author: ALPA OLIVA APRN.CNP Service: General Internal [...] malaise, (more content not included)...NormalHillcrest HospitalLipase SerPl-cCncon 57-37-3141Ecjugj [Catalytic activity/Vol]40 U/L Qlvxyu60-33Tstxdrxhg HospitalComment on above:Order Comment: Specimen Type: BLOOD SPECIMEN Ordering Facility: [facility] Address: [address] [place], [place] [address]Performed By: #### 1988-5, 64900-8 #### [facility] CLIA [id number] [address] [id number] [place] OF AMERICAMagnesium SerPl-mCncon 44-36-9345Pwntgppou [Mass/Vol]2.1 mg/dLNormal1.7-2.3[facility] HospitalComment on above:Order Comment: Specimen Type: BLOOD SPECIMEN Ordering Facility: [facility] Address: [address] [place], [place] [address]Performed By: #### 1987-10, #### [facility] IA [id number] [address] [place] [address] [place] OF AMERICANT-proBNP SerPl-mCncon 89-91-1007Rfqvtayaenm peptide.B prohormone N-Terminal [Mass/Vol]464 pg/mLHigh <125[facility] HospitalComment on above:Order Comment: Specimen Type: BLOOD SPECIMEN Ordering Facility: [facility] Address: [address] [place], [place] [address]Performed By: #### 1987-10, #### [facility] [id number] [address] [place] [address] [place] OF AMERICATrigl SerPl-mCncon 12-20-2023 Triglyceride [Mass/Vol]86 mg/dLNormal<150[facility] HospitalComment on above: Order Comment: Specimen Type: BLOOD SPECIMEN Ordering Facility: [facility] Address: [address] [place], [place] [address]Result Comment: <150 mg/dL, Normal 150-199 mg/dL, Borderline high 200-499 mg/dL, High >499 mg/dL, Very high Reference: 1. National Cholesterol Education Program ATP III Guideline At-A-Glance Quick Desk Reference: National Heart, Lung, and Blood Independence. National Institutes of Health. 2001: NIH Publication No. 01-3305.Performed By: #### 17201-1 #### [facility] CLIA [id number] [address] [place], [place] [address] [address] [place] AMERICATriglyceride [Mass/Vol]on 84-43-3094EUQVCJR TIMEUnknown\X09\NormalHillcrest HospitalComment on above:Order Comment: Specimen Type: BLOOD SPECIMEN Ordering Facility: [facility] Address: [address] [place], [place] [address]Performed By: #### 54062-0 #### [facility] CLIA [id number] [address] [place] [address] [place] [address] [place] AMERICAUrinalysis complete panel (U)on 48-82-4113Ehlsbwzdb Ql (U)NegativeNormalNegativeHillcrest HospitalComment on above:Order Comment: Specimen Type: URINE SPECIMEN Ordering Facility: [facility] Address: [address] [place], [place] [address]Performed By: #### 49641-3 #### [facility] CLIA [id number] [address] [place] [address] [place] AMERICAClarity (Unsp spec)Clear NormalClearHillcrest HospitalComment on above:Order Comment: Specimen Type: URINE SPECIMEN Ordering Facility: [facility] Address: [address] [place], [place] [address]Performed By: #### 57104-3 #### [facility] CLIA [id number] [address] [place] [address] [place] AMERICAColor (U)YellowNormalYellow [facility] HospitalComment on above:Order Comment: Specimen Type: URINE SPECIMEN Ordering Facility: [facility] Address: [address] [place], [place] [address]Performed By: #### 48894-0 #### [facility] CLIA [id number] [address] [place] [address] [place] AMERICAEpithelial cells LM.HPF (Urine sed) [#/Area]ModerateNormalHillcrest HospitalComment on above:Order Comment: Specimen Type: URINE SPECIMEN Ordering Facility: [facility] Address: [address] [place], [place] [address]Performed By: #### 92769-8 #### [facility] CLIA [id number] [address] [place] [address] [place] AMERICAGlucose Test strip (U) [Mass/Vol]NegativeNormalTrace, NegativeHillcrest HospitalComment on above:Order Comment: Specimen Type: URINE SPECIMEN Ordering Facility: [facility] Address: [address] [place], [place] [address]Performed By: #### 00401-5 #### [facility] CLIA [id number] [address] [place] [address] [place] AMERICAHemoglobin Ql (U)Negative NormalNegative, TraceHillcrest HospitalComment on above:Order Comment: Specimen Type: URINE SPECIMEN Ordering Facility: [facility] Address: [address] [place], [place] [address]Performed By: #### 42196-2 #### [facility] CLIA [id number] [address] [place] [address] [place] AMERICAKetones Ql (U)NegativeNormal Negative, TraceHillcrest HospitalComment on above:Order Comment: Specimen Type: URINE SPECIMEN Ordering Facility: [facility] Address: [address] [place], [place] [address]Performed By: #### 08682-2 #### [facility] CLIA [id number] [address] [place] [address] [place] AMERICALeukocyte esterase Test strip Ql (U)NegativeNormalNegative, 25 Francisco/uLHillcrest HospitalComment on above:Order Comment: Specimen Type: URINE SPECIMEN Ordering Facility: [facility] Address: [address] [place], [place] [address]Performed By: #### 26603-1 #### [facility] CLIA [id number] [address] [place] [address] [place] AMERICANitrite Ql (U)NegativeNormal NegativeHillcrest HospitalComment on above:Order Comment: Specimen Type: URINE SPECIMEN Ordering Facility: [facility] Address: [address] [place], [place] [address]Performed By: #### 17033-2 #### [facility] CLIA [id number] [address] [place] [address] [place] AMERICApH (U)6.0 [pH]Normal5.0-8.0 [facility] HospitalComment on above:Order Comment: Specimen Type: URINE SPECIMEN Ordering Facility: [facility] Address: [address] [place], [place] [address]Performed By: #### 37289-0 #### [facility] CLIA [id number] [address] [place] [address] [place] AMERICAProtein (U) [Mass/Vol]Trace NormalTrace, NegativeHillcrest HospitalComment on above:Order Comment: Specimen Type: URINE SPECIMEN Ordering Facility: [facility] Address: [address] [place], [place] [address]Performed By: #### 26431-9 #### [facility] CLIA [id number] [address] [place] [address] [place] AMERICARBC LM.HPF (Urine sed) [#/Area]0-3 /HPFNormal0-3 /HPFHillcrest HospitalComment on above:Order Comment: Specimen Type: URINE SPECIMEN Ordering Facility: [facility] Address: [address] [place], [place] [address]Performed By: #### 43696-0 #### [facility] CLIA [id number] [address] [place] [address] [place] AMERICASpecific gravity (U) [Rel density]1.928Vwklrc9.005-1.030[facility]st HospitalComment on above:Order Comment: Specimen Type: URINE SPECIMEN Ordering Facility: [facility] Address: [address] [place], [place] [address]Performed By: #### 77804-2 #### [facility] CLIA [id number] [address] [place] [address] [place] AMERICAUrobilinogen Ql (U)Normal NormalNormalHillcrest HospitalComment on above:Order Comment: Specimen Type: URINE SPECIMEN Ordering Facility: [facility] Address: [address] [place], [place] [address]Performed By: #### 39121-7 #### [facility] CLIA [id number] [address] [place] [address] [place] AMERICAWBC LM.HPF (Urine sed) [#/Area]0-5 /HPFNormal0-5 /HPFHillcrest HospitalComment on above:Order Comment: Specimen Type: URINE SPECIMEN Ordering Facility: [facility] Address: [address] [place], [place] [address]Performed By: #### 66009-6 #### [facility]HTONIA [id number] [address] [id number] [place] OF AMERICAXR CHEST 1V FRONTAL PORTon 13-97-4100QZ CHEST 1V FRONTAL PORT* * *Final Report* [...] Date/Time: Dec 20 2023 4:01P Dictated by: HOLLSI BANEGAS MD This examination was interpreted and the report reviewed and electronically signed by: HLOLIS BANEGAS MD on Dec 20 2023 4:14PM EST [id number]'s Vineyard HospitalXR CHEST 2V FRONTAL/LATon 79-02-0511TB CHEST 2V FRONTAL/LAT* * *Final Report* * [...] MD on Dec 21 2023 10:03AM EST [id number]'s Vineyard HospitalXR Chest PA and Lateralon 94-30-1748Aynwwlxvv Study observation (narrative)[facility]XR Chest PA and Lateralon 33-37-0177BLUHPOZYYB: Slight increase of the small right pleural effusion. A follow-up exam is recommended. Transcribed Using Voice Recognition Transcribe Date/Time: Dec 14 2023 1:14P Dictated by: JEFFREY KRUEGER MD This examination was interpreted and the report reviewed and electronically signed by: JEFFREY KRUEGER MD on Dec 14 2023 1:15PM [facility]* * *Final Report* * * [...] cardiomediastinal silhouette. Bones and soft tissues: Unremarkable. [facility]YProvider, [facility] [place] - 12/14/2023 * * *Final Report* * [...] 1:15PM EST [facility]XR Chest PA and LateralOrdered By: Migel Provider on 12-14-2023 [facility] HospitalOVon 55-61-0889VXLCOpjpag Visit (BERNARD) SAV RAYMUNDO ([id number]) 1950 M Date Time Provider Department 12/13/23 2:00 PM TITA LANDRY During your visit today, we recorded the following information about you: Temperature Pulse Respiration Blood pressure 97.3 degrees 68/minute 16/minute 129/80 Weight Height 104 kg 1.829 m Tita Landry APRN.CNP 01/16/2024 10:44 PM Signed [facility] [place] DEPARTMENT OF THORACIC SURGERY OUTPATIENT VISIT DATE December 13, 2023 OUTPATIENT VISIT TYPE ESTABLISHED PT NAME: Sav Cantu Kimberly [facility] NO: [id number] THORACIC SURGEON: Ronaldo Flood M.D. 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 NormalHiMount Auburn HospitalXR CHEST 2V FRONTAL/LATon 50-83-1178NV CHEST 2V FRONTAL/LAT* * *Final Report* * [...] report reviewed and electronically signed by: JEFFREY KREUGER MD on Dec 14 2023 1:15PM EST [id number] Union Hospital Chest PA and Lateralon 96-41-1040Vzwrnyrtc Study observation (narrative)[facility]FairhillCNOVon 15-92-4254JLUJEgyzqz Visit (BERNARD) SAV RAYMUNDO ([id number]) 1950 Date Time Provider Department 12/03/23 1:00 PM TITA LANDRY During your visit today, we recorded the following information about you: Temperature Pulse Respiration Blood pressure 97.8 degrees 74/minute 14/minute 120/78 Weight Height 102.4 kg 1.829 m Tita Landry APRN.CNP 12/30/2023 10:10 PM Signed [facility] [place] DEPARTMENT OF THORACIC SURGERY OUTPATIENT VISIT DATE December 03, 2023 OUTPATIENT VISIT TYPE ESTABLISHED PT NAME: Sav Raymundo [facility] NO: [id number] THORACIC SURGEON: Ronaldo Flood M.D. 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, right Pleurx catheter insertion, [...] content not included)...NormalHillcrest HospitalXR CHEST 2V FRONTAL/LATon 20-79-5969QF CHEST 2V FRONTAL/LAT* * *Final Report* * [...] TALAVERA MD on Dec 05 2023 12:53PM [facility] [id number] Hospital 67-59-8003WBVHYtubrw Visit (BERNARD) SAV RAYMUNDO ([id number]) 1950 Date Time Provider Department 11/29/23 3:00 PM TITA LANDRY During your visit today, we recorded the following information about you: Temperature Pulse Respiration Blood pressure 97.3 degrees 71/minute 14/minute 121/68 Weight Height 105.6 kg 1.829 m Tita Landry APRN.CNP 12/30/2023 9:20 PM Signed [facility] [place] DEPARTMENT OF THORACIC SURGERY OUTPATIENT VISIT DATE November 29, 2023 OUTPATIENT VISIT TYPE ESTABLISHED PT NAME: Sav Raymundo CLINIC NO: [id number] THORACIC SURGEON: Ronaldo Flood M.D. 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 Acute and chronic inflammation. 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, right Pleurx catheter insertion, [...] call with surgical patholog (more content not included)...NormalHillmountain view regional medical center HospitalXR CHEST 2V FRONTAL/LATon 29-51-9135QY CHEST 2V FRONTAL/LAT* * *Final Report* * [...] MD on Nov 30 2023 4:59PM EST [id number] Memorial Hospitalst [facility] 37-41-6041CKANFntmgmfnf (BERNARD) SAV RAYMUNDO ([id number]) 1950 M Date Time Provider Department 11/24/23 RONALDO FLOOD During your visit today, we recorded the following information about you: Allergies As of Date: 11/24/2023 Noted Allergy Reaction TRAMADOL 12/15/2020 1 - Mental Status Change Date Reviewed: 11/23/2023 Reviewed by: Slater, Lilia, RN - Fully Assessed Primary Visit Diagnosis:Surgery follow-up [Z09] Order(s):XR CHEST 2V FRONTAL/LAT [[id number]] Order #: [id number] FUTURE Prescriptions as of 11/24/2023 - acetaminophen [...] 11/21/2023 Encounter Status:Closed by JACEK RODAS on 11/24/23[facility] Heart Perfusion W stress and W radionuclide Scar[place] 11-12-2023* * *Final Report* * * DATE OF EXAM: Nov 12 2023 11:59AM N 0006 - NM CARDIAC PERF STRESS/PHARM / PROCEDURE REASON: multiple diagnoses * * * * Physician Interpretation * * * * Stress Furnace Installer Report: [facility] DASH-2 Date of service: 11/12/2023 10:35:44 AM [...] later. See administered radiotracer and doses below. [facility] Date of service: 11/12/2023 10:35:44 AM Ordering [...] * * * Final * * * [place] CTA Report: [facility] Date of service: 11/12/2023 10:35:44 AM CTAC interpreting physician: Jose Dawson MD PATIENT: Name: SAV RAYMUNDO Age: 73 years Gender: M 1. Incidental Findings from limited non-diagnostic CTAC: - Coronary calcifications visualized. large right pleural effusion better evaluated on dedicated chest imaging * * * Final * * * Stress ECG Report: [facility]- Date of service: 11/12/2023 10:35:44 AM Ordering physician: RONALDO FLOOD brand specialist: Joan Almendarez Still Photographer: Solange Mosley Interpreting physician: Jose Dawson MD Patient name: SAV RAYMUNDO Age: 73 years Gender: M Height: 182.88 cm BSA: 2.27 m Weight: 101.15 kg BMI: 30.2 kg/m Indication: Encounter for pre-procedural cardiovascular examination for non-cardiac surgery Stress ECG Conclusion: Conclusion: Normal Comments: Non-specific T wave abnormality at rest and (more content not included)...DIVISION OF RADIOLOGYProvider, [facility] [place] - 11/12/2023 * * *Final Report* * * DATE OF EXAM: Nov 12 2023 11:59AM N 0006 - NM CARDIAC PERF STRESS/PHARM / PROCEDURE REASON: multiple diagnoses * * * * Physician Interpretation * * * * Stress Furnace Installer Report: [facility]- Date of service: 11/12/2023 10:35:44 AM Supervising [...] See administered radiotracer and doses below. [facility] [place] Date of service: 11/12/2023 10:35:44 AM Ordering [...] Final * * * [place] CTAC Report: [facility] Date of service: 11/12/2023 10:35:44 AM CTAC interpreting physician: Jose Dawson MD PATIENT: Name: SAV RAYMUNDO Age: 73 years Gender: M 1. Incidental Findings from limited non-diagnostic CTAC: - Coronary calcifications visualized. large right pleural effusion better evaluated on dedicated chest imaging * * * Final * * * Stress ECG Report: [facility]-2 Date of service: 11/12/2023 10:35:44 AM Ordering physician: RONALDO FLOOD brand specialist: Joan Almendarez Still Photographer: Solange Mosley Interpreting physician: Jose Dawson MD [...] age. Peak bloo (more content not included)... [facility] Heart Perfusion W stress and W radionuclide IVOrdered By: Ccf Provider on 86-89-9246Gljgzpwyr [facility] HospitalNo Panel Informationon 11-12-2023 Radiology Study observation (narrative)[facility] Chest limitedon 40-82-8477Tcpehtgrj ClinicXR Chest PA and Lateralon 79-30-0119ZKCVSGPFJQ: See result. 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 DIVISION OF RADIOLOGYProvider, [facility]/12/[facility] * * *Final Report* * [...] the thoracic spine. IMPRESSION IMPRESSION: See result. 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 [employer]astic: ALONSO Transcribe Date/Time: Nov 12 2023 8:27A Dictated by : BLAS NELSON MD This examination was interpreted and the report reviewed and electronically signed by: BLAS NELSON MD on Nov 12 2023 8:29AM EST [facility] Chest PA and LateralOrdered By: Ccf Provider on 11-12-2023 [facility]-FairhillDetermination of appearance of body fluidon 58-19-0839Conuxamqoa (Body fld)[facility]azBlanchard [facility] Bluffton HospitalEvaluation of color of body fluidon 04-00-7867Vcgpj (Body fld)Yellow.[facility] Comment on above:Colorless to Pale Yellow/StrawLon 55-58-2463MNcftccyq: [id number] Received: 10/02/23 Status: MARITA Nolasco Num: [id number] Spec Type: Cytology Subm Dr: Sintia Clemente DO Tissues: A PLEURAL FLUID (RIGHT PLEURAL FLUID) Procedures: HE/2, Gross/Micro L4, Cyto Prepstain, PAPSTN Age/ Patient Sex Location Account Attending Physician Sav Raymundo 73/M [place] [id number] Sintia Clemente DO SPEC NUM: [id number] RECD: 10/02/23 STATUS: MARITA NOLASCO NUM: [id number] HALLIE: 10/01/[address]: Sintia Clemente DO ENTERED: 10/02/23 [facility] DR: SPEC TYPE: Cytology DEPT: [facility] NCYT ENTERED BY: [id number] RECV BY: [id number] ORDERED: HE/2, Gross/Micro L4, Cyto Prepstain, PAPSTN [...] are prepared. 1 cell blocks are prepared. ([place]/nh) Specimen: [id number] Received: 10/02/23-1403 Status: MARITA Nolasco Num: [id number] Spec Type: Cytology Subm Dr: Sintia Clemente DO Tissues: A PLEURAL FLUID (RIGHT PLEURAL FLUID) Procedures: HE/2, Gross/Micro L4, Cyto Prepstain, PAPSTN Patient: Sav Raymundo [id number] (Continued) Signed (signature on file) Jaspal Olmedo MD 10/03/23 1259[facility] GroupLaboratory - Microbiology and Antimicrobial susceptibilityOrdered By: Yuli Mariscal on 52-91-2670Uvkwaczxboi observation Gram stain Nom (Unsp spec)[facility] HospitalManual body fluid eosinophils/100 leukocyteson 88-15-0502Ohcyfroqskz/100 WBC Manual cnt (Body fld)0 %Not Estab.[facility]man HospitalComment on above: Performed at: CB - [facility] [address] [id number] Director: Norm Alcaraz PhD, Phone: [phone] body fluid lymphocytes/100 leukocyteson 54-94-7066Akyvvunmdsu/100 WBC Manual cnt (Body fld) 39 %Not Estab.[facility]man HospitalNeutrophils/100 WBC Manual cnt (Body fld)on 76-58-1794Nzvpmgvnatt/100 WBC (Body fld)5 %0-24[facility] HospitalNo Panel InformationOrdered By: Yuli Mariscal on 51-71-8351Nepe Fast SmearAultman HospitalAFB Specimen ProcessingAultman HospitalNo Panel Informationon 85-49-6276Sxoy Fluid CommentTNP. [facility]man HospitalBody Fluid Rthclwy011 mg/dL.[facility] HospitalComment on above: : BODY FLUID TYPE [...] 2007. Ninth edition (V9.1) [employer], [facility]; [place]: December 2008.Body Fluid Lining CellTNP.[facility]ultman HospitalBody Fluid Macrophages (%)56 %Not Estab.[facility]man HospitalBody Fluid pHTNP.[facility] HospitalComment on above:Test not performed. Test is not approved for the collectionsite indicated.This test was developed and its performance characteristicsdetermined by [facility]. It has not been cleared orapproved by the Food and Drug Administration.The reference interval(s) and other method performance specificationshave not been established for this body fluid. The test result must beintegrated into the clinical context for interpretation.Performed at: [address] [place], [place] [id number] Director: Yan Escamilla MD, Phone: [phone] Fluid MYU8398 /uLNot Estab.[facility]ultman HospitalBody Fluid Total Nucleated Qfopa6291 /mn96-304ApohczkrcAultman HospitalComment on above:Pleural Fluid, with <1000 Nucleated cells/uL has beenassociated with transudates while >1000 uL may be seenin exudates.Body Fluid Total Protein3.7 g/dL.[facility] Comment on above: : BODY FLUID [...] 2007. Ninth Edition (V9.1) [facility], [facility]; [place]: December 2008.Performed at: CB - [facility] [address] [place], [place] [id number] Director: Norm Alcaraz PhD, Phone: [phone] Smear ResultAultman HospitalMiscellaneous Test CommentSee commentAultman HospitalComment on above:Specimen Source: PL - Pleural Fluid - Pleural Fl - 401.000Estimated glomerular filtration rate (GFR) non- Americanon 85-74-3393URC/1.73 sq M.predicted among non- blacks MDRD (S/P/Bld) [Vol rate/Area]mL/min/{1.73_m2}>=60[facility] HospitalLaboratory - Chemistry and Chemistry - challengeon 09-11-2023 Creatinine [Mass/Vol]1.02 mg/dL0.70-1.30[facility] GFR/1.73 sq M.predicted MDRD (S/P/Bld) [Vol rate/Area]mL/min/{1.73_m2}>=60 [facility] HospitalBody fluid differential cell countOrdered By: Sintia Clemente on 84-47-2189Jvbmlsjilhlt panel (Body fld)50 %[facility]man HospitalComment on above:The reference interval and other method performance specifications have not been established for this body fluid. The test result must be integrated into the clinical context for interpretation.Cell Count/Diff, Fluidon 11-25-2141Svoyjfaofj, FluidHazyNormalThe [facility] Physician GroupComment on above:Order Comment: Body Fluid Source: Pleural Fluid Body Fluid Site: PLEURAL FLUIDResult Comment: The reference interval and other method performance specifications have not been established for this body fluid. The test result must be integrated into the clinical context for interpretation.Performed By: #### FLCCDIFF #### [address] Physician Group Comment on above:Order Comment: Body Fluid Source: Pleural Fluid Body Fluid Site: PLEURAL FLUIDResult Comment: The reference interval and other method performance specifications have not been established for this body fluid. The test result must be integrated into the clinical context for interpretation.Performed By: #### FLCCDIFF #### [facility] [address] [place] [address] [facility] Physician GroupComment on above:Order Comment: Body Fluid Source: Pleural Fluid Body Fluid Site: PLEURAL FLUIDResult Comment: The reference interval and other method performance specifications have not been established for this body fluid. The test result must be integrated into the clinical context for interpretation.Performed By: #### FLCCDIFF #### [facility] [address] [place] [id number] USAEosinophils, Fluid0 /100{WBC}Normal0-3The [facility] Physician GroupComment on above:Order Comment: Body Fluid Source: Pleural Fluid Body Fluid Site: PLEURAL FLUIDResult Comment: PERFORMED BY: [place] [address] PATHOLOGIST BOWL SANDER KATHY HENDRICKSON M.D.Performed By: #### FLCCDIFF #### [place] [address] USALymphocytes, Fluid38 %NormalThe [facility] Comment on above:Order Comment: Body Fluid Source: Pleural Fluid Body Fluid Site: PLEURAL FLUIDResult Comment: The reference interval and other method performance specifications have not been established for this body fluid. The test result must be integrated into the clinical context for interpretation.Performed By: #### FLCCDIFF #### [place] [id number] USAMonocytes/Macrophages, Fluid50 %NormalThe [facility] Physician GroupComment on above:Order Comment: Body Fluid Source: Pleural Fluid Body Fluid Site: PLEURAL FLUIDResult Comment: The reference interval and other method performance specifications have not been established for this body fluid. The test result must be integrated into the clinical context for interpretation.Performed By: #### FLCCDIFF #### [place] [id number] USANeutrophil, Fluid12 %NormalThe [facility] Comment on above:Order Comment: Body Fluid Source: Pleural Fluid Body Fluid Site: PLEURAL FLUIDResult Comment: The reference interval and other method performance specifications have not been established for this body fluid. The test result must be integrated into the clinical context for interpretation.Performed By: #### FLCCDIFF #### [place] [address] USARBC, Cqdfy88497 /uLNormalThe [facility] Comment on above:Order Comment: Body Fluid Source: Pleural Fluid Body Fluid Site: PLEURAL FLUIDResult Comment: The reference interval and other method performance specifications have not been established for this body fluid. The test result must be integrated into the clinical context for interpretation.Performed By: #### FLCCDIFF #### [facility] [address] [place] [id number] USATNC, Body Isffg720 /[facility] Physician Group Comment on above:Order Comment: Body Fluid Source: Pleural Fluid Body Fluid Site: PLEURAL FLUIDResult Comment: The reference interval and other method performance specifications have not been established for this body fluid. The test result must be integrated into the clinical context for interpretation.Performed By: #### FLCCDIFF #### [facility] [address] [place] [id number] USAColor of Spun Body fluidOrdered By: Sintia Clemente on 03-06-7629Mmbop (Spun body fld)[facility] HospitalComment on above:The reference interval and other method performance specifications have not been established for this body fluid. The test result must be integrated into the clinical context for interpretation.Determination of appearance of body fluidOrdered By: Sintia Clemente on 62-62-0850Chbhdwjlvb (Body fld)[facility]Kitrick HospitalComment on above:The reference interval and other method performance specifications have not been established for this body fluid. The test result must be integrated into the clinical context for interpretation. Evaluation of color of body fluidOrdered By: Sintia Clemente on 68-03-3584Lzykp (Body fld)[facility] HospitalComment on above:The reference interval and other method performance specifications have not been established for this body fluid. The test result must be integrated into the clinical context for interpretation.Xander 22-18-7792GVhpuwecv: [id number] Received: 09/06/23 [facility] Num: [id number] Spec Type: Cytology Subm Dr: Sintia Clemente DO Tissues: A PLEURAL FLUID (PLEUR) Procedures: HE/2, Gross/Micro L4, AE1-AE3, CALRETININ, CK20, CK 7, TTF1, Cyto Prepstain, NKX3.1, MOC31, SOX-10, PAPSTN Age/ Patient Sex Location Account Attending Physician KimberlySav Cantu 73/M [facility] [id number] Sintia Basil Mcarthursa SPEC NUM: [id number] RECD: 09/06/23 STATUS: MARITA NOLASCO NUM: [id number] HALLIE: 09/04/23-[address] [facility] [address]: Sintia Clemente DO ENTERED: 09/06/[address]: FILEMON TYPE: Cytology DEPT: CNG ENTERED BY: [id number] RECV BY: [id number] ORDERED: HE/2, Gross/Micro L4, AE1-AE3, CALRETININ, CK20, [...] are prepared. 1 cell blocks are prepared. (WV/nh) Specimen: [id number] Received: 09/06/23 Status: MARITA Nolasco Num: [id number] Spec Type: Cytology Subm Dr: Sintia Clemente DO Tissues: A PLEURAL FLUID (PLEUR) Procedures: HE/2, Gross/Micro L4, AE1-AE3, CALRETININ, CK20, CK 7, TTF1, Cyto Prepstain, NKX3.1, MOC31, SOX-10, PAPSTN Patient: Sav Raymundo [id number] (Continued) Signed (signature on file) Jaspal Olmedo MD 09/12/[address] [place] [address] Physician GroupLaboratory - Chemistry and Chemistry - challengeon 47-93-9668Lyxqxktxypy [Mass/Vol]59 mg/dL<=200[facility] HospitalLaboratory - Microbiology and Antimicrobial susceptibilityOrdered By: Yuli Mariscal on 31-88-8680Xchirpospvb observation Gram stain Nom (Unsp spec)[facility] body fluid eosinophils/100 leukocytesOrdered By: Sintia Clemente on 23-08-7295Fswvxsbsheh/100 WBC Manual cnt (Body fld)0 /100{WBC}0-3FHolzer Medical Center [facility] body fluid erythrocytes count (number/volume)Ordered By: Sintia Clemente on 40-37-1543UQJ Manual cnt (Body fld) [#/Vol]40010 /[facility] CenterComment on above:The reference interval and other method performance specifications have not been established for this body fluid. The test result must be integrated into the clinical context for interpretation.Manual body fluid lymphocytes/100 leukocytesOrdered By: Sintia Clemente on 09-04-2023 Lymphocytes/100 WBC Manual cnt (Body fld)38 %[facility] Comment on above:The reference interval and other method performance specifications have not been established for this body fluid. The test result must be integrated into the clinical context for interpretation.Neutrophils/100 WBC Manual cnt (Body fld)Ordered By: Sintia Clemente on 98-63-9537Etuvozhzanj/100 WBC (Body fld)12 %[facility]man HospitalComment on above:The reference interval and other method performance specifications have not been established for this body fluid. The test result must be integrated into the clinical context for interpretation.No Panel InformationOrdered By: Yuli Mariscal on 45-65-7235Fpkn Fast SmearAultman HospitalAFB Specimen ProcessingAultman HospitalNo Panel Informationon 62-43-3241Jkwo Fluid Negouam95 U/L.[facility]ultman HospitalComment on above: : BODY FLUID TYPE : AMYLASE : : : : : Lymph : 50 - 83 : : : : : Peritoneal : : : Fluid : 88 - 109 : : : : : Saliva : : : (Mixed Glands) : 53169- 195730 : : : : Adeel Das V. Reference Intervals for Adults and Children 2007. Edition (V9.1) [facility] [facility]; [place]: December 2008.Performed at: CB - [facility] [address] [place], [place] [id number] Director: Norm Alcaraz PhD, Phone: [phone] Fluid Mqkcdvw424 mg/dL.[facility] Comment on above: : BODY FLUID [...] 2007. Ninth edition (V9.1) [employer], [facility]; [place]: December 2008.Body Fluid pH8.2Not Estab.[facility]ultman HospitalComment on above:This test was developed and its performance characteristicsdetermined by [facility]. It has not been cleared orapproved by the Food and Drug Administration.The reference interval(s) and other method performance specificationshave not been established for this body fluid. The test result must beintegrated into the clinical context for interpretation.Performed at: [place] [address] [place], [place] [id number] Director: Yan Escamilla MD, Phone: [phone] Fluid Total Protein3.7 g/dL.[facility] HospitalComment on above: : BODY FLUID TYPE [...] 2007. Ninth Edition (V9.1) [employer], [facility]; [place]: December 2008.Body Fluid Pzigdrgjxmqhv55 mg/dLNot Estab. [facility]man HospitalComment on above:The reference interval(s) and other method performance specificationshave not been established for this body fluid. The test result must beintegrated into the clinical context for interpretation.Performed at: [facility] [id number] Director: Norm Alcaraz PhD, Phone: [phone] Smear Kindred HealthcareMiscellaneous Test CommentSee comment [facility] HospitalComment on above:Specimen Source: PL - Pleural Fluid - Pleural Fl - 401.000No Panel InformationOrdered By: Sintia Clemente on 40-82-9828Zpgd Fluid Total Nucleated Plrqo859 /[facility] CenterComment on above:The reference interval and other method performance specifications have not been established for this body fluid. The test result must be integrated into the clinical context for interpretation.Serum or plasma free cefuroxime measurement (mass/volume)on 22-63-2936Empnjfzsjk free [Mass/Vol] TNP.[facility]ultman HospitalComment on above:Test not performed. No serum gel received.Contacted Shelby at your facility 09/06/2023Test not performed. No serum gel received.Contacted Shreya at your facility 09/06/2023--- 09/06/23 1311 ---GREY Direct previously reported as: Test not performedTest not performed. No serum gel received.Contacted Shelby at your facility 09/06/2023Serum or plasma rheumatoid factor measurement (units/volume)on 06-38-6721Ynqcnxeddu factor Qn TNP [IU]/mL.[facility]ultman HospitalComment on above:Test not performed. No serum gel received.Contacted Shelby at your facility 09/06/2023Test not performed. No serum gel received.Contacted Shreya at your facility 09/06/2023--- 09/06/23 1311 ---RF previously reported as: Test not performed IU/mLTest not performed. No serum gel received.Contacted Shelbyat your facility 09/06/2023denosine monophosphate.cyclic [Moles/Vol]on 94-40-8583Dlrcch Citrullinated Peptid IgG/IgA1 units0-19Aultman HospitalComment on above:Negative <20 Weak positive 20 - 39 Moderate positive 40 - 59 Strong positive >59Performed at:[employer] [id number] Director: Norm Alcaraz PhD, Phone: [phone] <20 Weak positive 20 - 39 Moderate positive 40 - 59 Strong positive >59Performed at:[employer] [address] [id number] Director: Norm Alcaraz PhD, Phone: [phone] perinuclear antineutrophil cytoplasmic antibodies measurementon 83-09-4950Offwbyldsx cytoplasmic Ab.perinuclear.atypical IF (S) [Titer]<1:20 titerNeg:<1:20[facility] HospitalComment on above:The atypical pANCA pattern has been observed in asignificant percentage of patients with ulcerativecolitis,primary sclerosing cholangitis and autoimmune hepatitis.Performed at: [employer] [id number] Director: Yan Escamilla MD, Phone: [phone] at: [employer] [address] [id number] Director: Norm Alcaraz PhD, Phone: [phone] capsulatum antibody detection by complement fixationon 08-28-2023H. capsulatum Ab CF Ql (S)NegativeNeg:<1:2FMercy Health Defiance HospitalComment on above: Performed at: [address] [id number] Director: Yan Escamilla MD, Phone: [phone] Ab [Units/volume] in Serum by Immunoassayon 43-72-9061Uduripoyuoqhafw Ab IA Qn (S) <0.2 units0.0-0.9[facility] HospitalNo Panel Informationon 24-01-3985Aclyhwidwfbqx TestCOMMENT.[facility]ultman HospitalComment on above:Test Ordered: [id number] [place] A IgG/IgM AntibodyCoxsackie A7 IgG 1:100 [H ] titer Reference Range: Neg:<1:100[place] A9 IgG 1:100 [H ] titer Reference Range: Neg:<1:100[place] A16 IgG 1:100 [H ] titer BN Reference Range: Neg:<1:100[place] A24 IgG 1:100 [H ] titer BN Reference Range: Neg:<1:100[place] A7 IgM Negative titer BN Reference Range: Neg:<1:10[place] A9 IgMNegative titer Reference Range: Neg:<1:10[place] A16 IgM Negative titer BN Reference Range:Neg:<1:10[place] A24 IgM Negative titer BN Reference Range: Neg:<1:10Performed at: [address] [id number] Director: Yan Escamilla MD, Phone: [phone] at: [facility] [place], [place] [id number] Director: Norm Alcaraz PhD, Phone: [phone] ANCA (p-ANCA) Antibody<1:20 titerNeg:<1:20[facility]ultman HospitalComment on above: The presence of positive fluorescence exhibiting P-ANCA orC-ANCA patterns alone is not specific forthe diagnosis ofWegener's Granulomatosis (WG) or microscopic polyangiitis.Decisions about treatmentshould not be based solely onANCA IFA results. The International ANCA Group Consensusrecommends follow up testing of positive sera with both TX-3 and MPO-ANCA enzyme immunoassays. As many as 5% serumsamples are positive only by EIA. Ref. AM J Clin Zxtutr9182;111:507-513. Histoplasma Galactomannan AntigenNegative<0.5 ng/mLAultman HospitalComment on above:This test was developed and its performance characteristicsdetermined by [employer]. It has not been cleared orapproved by the Food and Drug Administration.Performed at: [facility] [employer] [place] [address], [place] [id number] Director: Janine Goodman MD, Phone: [phone] 3 Ab [Units/volume] in Serum by Immunoassayon 08-28-2023 Proteinase 3 Ab IA Qn (S)<0.2 units0.0-0.9[facility] John Medical CenterCL- 70 extractable nuclear Ab IA Qn (S)on 77-01-0704Ajk-70 (Scleroderma) Antibody <0.2 AI0.0-0.9[facility]man HospitalComment on above:Performed at: [facility] [employer] [id number] Director: Norm Alcaraz PhD, Phone: [phone] at: [facility] [employer] [id number] Director: Norm Alcaraz PhD, Phone: [phone] Serum angiotensin converting enzyme (NANDO) measurementon 80-67-5367Eomzfkcztjd converting enzyme [Catalytic activity/Vol]34 U/V65-40XyqdaafupAultman HospitalComment on above:Performed at: [employer] [address] [id number] Director: Norm Alcaraz PhD, Phone: [phone] classic neutrophil cytoplasmic antibody titer by immunofluorescenceon 08-28-2023 Neutrophil cytoplasmic Ab.classic IF (S) [Titer]<1:20 titerNeg:<1:20[facility] John Medical Centererum or plasma rheumatoid factor measurement (units/volume)on 47-85-4263Ljhgstnklb factor Qn[IU]/mL<14.0[facility] HospitalComment on above:Performed at: [employer] [facility] [address] [id number] Director: Norm Alcaraz PhD, Phone: [phone] Laboratory - Chemistry and Chemistry - challengeon 97-58-7981Oiwhesbaw (Vitamin B12) [Mass/Vol]3286.0 pg/mL193.0-986.0[facility] HospitalTSH Qn 1.287 m[IU]/L0.358-3.740A[facility] HospitalLaboratory - Hematology and Cell countson 18-94-0646KKV (Bld) [Velocity]126 mm/h<=20[facility] HospitalNo Panel Informationon 61-67-8223F-Reactive Protein, Quantitative 4.28 mg/dL<=0.50A[facility] HospitalFolate21.60 ng/mL8.60-58.[address] [facility] Medical Centererum or plasma free cefuroxime measurement (mass/volume)on 05-61-9432Mcotikqueb free [Mass/Vol]NegativeNegativeAultman HospitalComment on above:Performed at: [employer] [facility] [address] [id number] Director: Norm Alcaraz PhD, Phone: [phone] Auto (Bld) [#/Vol]on 47-52-8979Vtnpkbdfr (Bld) [#/Vol]0.0 10 3/uL0.0-0.1FMercy Health Defiance HospitalBasophils/100 WBC Auto (Bld)on 45-71-1483Cmlbalczx/100 WBC (Bld)0.2 %0.2-2.0[facility] Eosinophils/100 WBC Auto (Bld)on 19-85-5727Dqsjlcsgtyh/100 WBC (Bld)0.0 %0.9-7.0 [facility] HospitalErythrocyte distribution width Auto (RBC) [Ratio]on 15-83-7982Cqcrsdyzpwf distribution width (RBC) [Ratio]12.5 %11.0-15.0 [facility] HospitalEstimated glomerular filtration rate (GFR) non- Americanon 89-97-0190QQK/1.73 sq M.predicted among non-blacks MDRD (S/P/Bld) [Vol rate/Area]mL/min/{1.73_m2}>=60[facility] Globulin Calc (S) [Mass/Vol]on 89-02-2537Zogkiytg (S) [Mass/Vol]4.7 g/dL A[facility] HospitalHematocrit Auto (Bld) [Volume fraction]on 13-98-9193Uoryilduba (Bld) [Volume fraction]34.7 %42.0-54.0[facility] HospitalHemoglobin [Mass/volume] in Bloodon 17-24-8173Fanheqyvca (Bld) [Mass/Vol]11.2 g/dL14.0-18.0[facility] HospitalLaboratory - Chemistry and Chemistry - challengeon 74-61-1465Swkfbvi [Mass/Vol]3.2 g/dL 3.4-5.0[facility] HospitalALP [Catalytic activity/Vol]66 U/L46-116 [facility] HospitalALT [Catalytic activity/Vol]33 U/L16-63 [facility] HospitalAST [Catalytic activity/Vol]24 U/L15-37 [facility] HospitalBilirubin [Mass/Vol]0.6 mg/dL0.2-1.0[facility] HospitalCalcium [Mass/Vol]8.9 mg/dL8.5-10.1FMercy Health Defiance HospitalChloride [Moles/Vol]101 mmol/T80-778ToqcuqirjAultman HospitalCO2 [Moles/Vol]27.4 mmol/L21.0-32.0[facility] Creatinine [Mass/Vol]1.06 mg/dL0.70-1.30[facility] GFR/1.73 sq M.predicted MDRD (S/P/Bld) [Vol rate/Area]mL/min/{1.73_m2}>=60 [facility] HospitalGlucose [Mass/Vol]115 mg/pB20-297FjdfmfxjqAultman HospitalNatriuretic peptide B (Bld) [Mass/Vol]397.0 pg/mL<=900.0 [facility] HospitalPotassium [Moles/Vol]3.8 mmol/L3.5-5.1FMercy Health Defiance HospitalProtein [Mass/Vol]7.9 g/dL6.4-8.2FMercy Health Lorain Hospitalodium [Moles/Vol]138 mmol/T434-759CxrqxlfreAultman HospitalUrea nitrogen [Mass/Vol]15.0 mg/dL7.0-18.0[facility] HospitalUrea nitrogen/Creatinine [Mass ratio]14.2 mg/mgAultman HospitalLaboratory - Hematology and Cell countson 00-44-4464PAR (Bld) [Velocity] mm/h<=20[facility] HospitalImmature granulocytes/100 WBC (Bld)0.4 %0.0-0.5FMercy Health Defiance HospitalLaboratory - Microbiology and Antimicrobial susceptibilityon 76-61-4850CBYZ-CoV-2 (COVID-19) RNA BRYN+probe Ql (Unsp spec)NegativeNEGATIVEAultman HospitalComment on above: This test has not [...] nucleated erythrocytes in Blood by Automated counon 93-23-3714HAL corrected for nucl RBC Auto (Bld) [#/Vol]9.9 10 3/uL4.0-11.0[facility] HospitalLymphocytes Auto (Bld) [#/Vol]on 89-73-1092Fgmgqqumjpc (Bld) [#/Vol]0.8 10 3/uL1.2-3.8[facility] HospitalLymphocytes/100 WBC Auto (Bld)on 37-24-5078Wwzvpamyrnt/100 WBC (Bld)8.0 %20.5-60.0[facility] HospitalH Auto (RBC) [Entitic mass]on 06-66-0720YXO (RBC) [Entitic mass]32.3 pg 25.9-34.0[facility] HospitalHC Auto (RBC) [Mass/Vol]on 85-72-2885HBDU (RBC) [Mass/Vol]32.3 g/dL29.9-35.2FMercy Health Defiance HospitalMCV Auto (RBC) [Entitic vol]on 55-33-4530IYA (RBC) [Entitic vol]100.0 fL 80.0-94.0[facility] HospitalMonocytes Auto (Bld) [#/Vol]on 79-18-7743Euwxizgzd (Bld) [#/Vol]1.0 10 3/uL0.3-0.8[facility] HospitalMonocytes/100 WBC Auto (Bld)on 75-30-3345Ujtxqvlzj/100 WBC (Bld)9.9 % 1.7-12.0[facility] HospitalNeutrophils Auto (Bld) [#/Vol]on 92-13-5979Ahqrpxcszdt (Bld) [#/Vol]8.1 10 3/uL1.4-6.5FMercy Health Defiance HospitalNeutrophils/100 WBC Auto (Bld)on 39-47-7722Claowjueujp/100 WBC (Bld)81.5 % 43.0-75.0[facility] HospitalNo Panel Informationon 89-37-7883Q- Reactive Protein, Quantitative6.36 mg/dL<=0.50[facility] Eosinophils # (Auto)0.0 10 3/uL0.0-0.7FMercy Health Defiance HospitalImmature Granulocyte # (Auto)0.04 10 3/uL0.00-0.03[facility] Troponin I High Smlelwthvbt98.9 pg/mL4.0-76.1FMercy Health Defiance Hospital Comment on above:CUT-OFF POINTS HAVE BEEN ESTABLISHED [...] DIAGNOSTIC AND CLINICAL INFORMATION.Bedside Influenza Type A AntigenNegativeAultman HospitalComment on above:Negative for Flu A protein antigen. Infection due to Flu Acannot be ruled out. Flu A antigen in thesample may bebelow the detection limit of the test.Bedside Influenza Type B AntigenNegativeAultman HospitalComment on above:Negative for Flu B protein antigen. Infection due to Flu Bcannot be ruled out. Flu B antigen in thesample may bebelow the detection limit of the test.Platelet mean volume Auto (Bld) [Entitic vol]on 93-12-9058Yfqjozqe mean volume (Bld) [Entitic vol]9.5 fL9.5-13.5FMercy Health Defiance HospitalPlatelets Auto (Bld) [#/Vol]on 13-06-1091Ofyedgxdb (Bld) [#/Vol]288 10 3/nV127-659WfifypayqAultman HospitalRBC Auto (Bld) [#/Vol]on 87-35-8182VRO (Bld) [#/Vol]3.47 10 6/uL4.70-6.[address] [facility] Centererum or plasma albumin/globulin mass ratioon 50-68-5989Dsnfhfn/Globulin [Mass ratio]0.7 {ratio}[facility] Medical Centererum or plasma anion gap determinationon 71-66-9515Gduqo gap [Moles/Vol] 13.4 mmol/LFMercy Health Defiance HospitalXR KNEE LEFT 4+ VIEWS (SPECIFY VIEWS IN COMMENTS)on 79-75-0761UG KNEE LEFT 4+ VIEWS (SPECIFY VIEWS IN COMMENTS)X- rays of the left knee from [facility] taken today are reviewed. My personal [...] HUFF on SatJan 16, 2023 10:52:01 AM [facility] on above:Order Comment: Injury/Trauma or Illness?:Illness/Other How long have you had these symptoms (acute/chronic)?:Unknown Reason for exam?:U History of cancer?:n/a Surgeries, chemotherapy, or radiation?:n/a Type of Exam?:Unknown Additional signs and symptoms?:UXR ANKLE LEFT 3+ VIEWS (STANDARD)on 86-32-5064KM ANKLE LEFT 3+ VIEWS (STANDARD)Weightbearing radiographs of [...] EDOUARD on SatAug 28, 2022 1:49:21 PM [facility] on above:Order Comment: Injury/Trauma or Illness?:Illness/Other How long have you had these symptoms (acute/chronic)?:Unknown Reason for exam?:n/a History of cancer?:n/a Surgeries, chemotherapy, or radiation?:n/a Type of Exam?:Unknown Additional signs and symptoms?:n/aXR ANKLE RIGHT 3+ VIEWS (STANDARD)on 93-81-3750KR ANKLE RIGHT 3+ VIEWS (STANDARD)Weightbearing radiographs of [...] EDOUARD on SatAug 28, 2022 1:50:20 PM [facility] on above:Order Comment: Injury/Trauma or Illness?:Illness/Other How long have you had these symptoms (acute/chronic)?:Unknown Reason for exam?:n/a History of cancer?:n/a Surgeries, chemotherapy, or radiation?:n/a Type of Exam?:Unknown Additional signs and symptoms?:n/aXR FOOT LEFT 2 VIEWSon 79-82-1013RI FOOT LEFT 2 VIEWSWeightbearing radiographs of the [...] EDOUARD on SatAug 28, 2022 1:49:28 PM [facility] on above:Order Comment: Injury/Trauma or Illness?:Illness/Other How long have you had these symptoms (acute/chronic)?:Unknown Reason for exam?:n/a History of cancer?:n/a Surgeries, chemotherapy, or radiation?:n/a Type of Exam?:Unknown Additional signs and symptoms?:n/aXR FOOT RIGHT 2 VIEWSon 70-20-4976OK FOOT RIGHT 2 VIEWSWeightbearing radiographs of the [...] EDOUARD on SatAug 28, 2022 1:50:37 PM EDTColleton Medical CenterComment on above:Order Comment: Injury/Trauma or Illness?:Illness/Other How long have you had these symptoms (acute/chronic)?:Unknown Reason for exam?:n/a History of cancer?:n/a Surgeries, chemotherapy, or radiation?:n/a Type of Exam?:Unknown Additional signs and symptoms?:n/aCBC AUTO DIFFon 02-05-4632MAAV #0.1 103/ul Normal0.0-0.1[facility] HospitalComment on above:Performed By: #### DATCBC #### [facility] [address] [place] [address] Dr. Joni SandersBasophils/100 WBC (Bld)1.0 %Normal0.2-2.0[facility] Comment on above:Performed By: #### DATCBC #### [facility] [address] [place] [address] Dr. Joni Yi #0.1 103/ulNormal0.0-0.7The [facility] HospitalComment on above: Performed By: #### DATCBC #### [facility] [address] [place] [address] Dr. Joni Davilaosinophils/100 WBC (Bld)2.0 %Normal0.9-7.0[facility] Comment on above:Performed By: #### DATCBC #### [facility] [address] [place] [address] Dr. Joni Davilarythrocyte distribution width (RBC) [Ratio]12.4 %Esjeez72.0-15.0 The [facility] HospitalComment on above:Performed By: #### DATCBC #### [facility] [address] [place] [address] Dr. Joni SandersHematocrit (Bld) [Volume fraction]43.7 %Smqywz48.0-54.0The [facility] HospitalComment on above:Performed By: #### DATCBC #### [facility] [address] [place] [address] Dr. Joni SandersHemoglobin (Bld) [Mass/Vol]14.6 g/tOLqrgrq24.0-18.0The [facility] HospitalComhenry ford hospital on above:Performed By: #### DATCBC #### [facility] [address] [place] [address] Dr. Joni Cobb #0.02 10e3/ulNormal0.00-0.03The [facility] HospitalComhenry ford hospital on above:Performed By: #### DATCBC #### [facility] [address] [place] [address] Dr. Joni Cobb %0.3 %Normal0.0-0.5The [facility] on above: Performed By: #### DATCBC #### [facility] [address] [place] [address] Dr. Joni RiveraH #2.0 103/ulNormal1.2-3.8The [facility] HospitalComhenry ford hospital on above:Performed By: #### DATCBC #### [facility] [address] [place] [address] Dr. Joni Tamphocytes/100 WBC (Bld)33.3 %Brgkvk44.5-60.0The [facility] on above:Performed By: #### DATCBC #### [facility] [address] [place] [address] Dr. Joni Pedraza (RBC) [Entitic mass]32.6 cvGldrmc86.9-34.0The [facility] HospitalComment on above:Performed By: #### DATCBC #### [facility] [address] [place] [address] Dr. Joni WilliamHC (RBC) [Mass/Vol]33.4 g/nWDshahy79.9-35.2The [facility] HospitalComment on above:Performed By: #### DATCBC #### [facility] [address] [place] [address] Dr. Joni William (RBC) [Entitic vol]97.5 fLCritically high80.0-94.0The [facility] HospitalComment on above:Performed By: #### DATCBC #### [facility] [address] [place] [address] Dr. Joni Esposito #0.6 103/ulNormal0.3-0.8The [facility] Memorial HospitalComment on above:Performed By: #### DATCBC #### [facility] [address] [place] [address] Dr. Joni Thorpeocytes/100 WBC (Bld)9.8 %Normal1.7-12.0The [facility] Comment on above:Performed By: #### DATCBC #### [facility] [address] [place] [address] Dr. Joni Price #3.2 103/ulNormal1.4-6.5The [facility] HospitalComment on above:Performed By: #### DATCBC #### [facility] [address] [place] [address] Dr. Joni Estebanophils/100 WBC (Bld)53.6 %Trgwuz70.0-75.0The [facility] HospitalComment on above:Performed By: #### DATCBC #### [facility] [address] [place] [address] Dr. Joni Walshlet mean volume (Bld) [Entitic vol]9.9 fLNormal9.5-13.5The [facility] HospitalComment on above:Performed By: #### DATCBC #### [facility] [address] [place], [place] [address] Dr. Joni SandersPLT239 103/wdZbrfrn436-422Jzt [facility] HospitalComment on above: Performed By: #### DATCBC #### [facility] [address] [place] [address] Dr. Joni SandersRBC4.48 106/ulCritically low4.70-6.10The [facility] HospitalComment on above:Performed By: #### DATCBC #### [facility] [address] [place] [address] Dr. Joni SandersWBC5.9 103/ulNormal4.0-11.0The [facility] HospitalComment on above: Performed By: #### DATCBC #### [facility] [address] [place] [address] Dr. Joni Mills- BMP WITH LIPIDon 98-70-6643Ecdjz gap [Moles/Vol]12.7 mmol/L NormalThe [facility] HospitalComment on above:Performed By: #### DATBMP #### [facility] [address] [place] [address] Dr. Joni SandersCalcium [Mass/Vol]9.0 mg/dLNormal8.5-10.1The [facility] Comment on above:Performed By: #### DATBMP #### [facility] [address] [place] [address] Dr. Joni SandersChloride [Moles/Vol]104 mmol/IIsdhfj09-438Vyx [facility] Comment on above:Performed By: #### DATBMP #### [facility] [address] [place] [address] Dr. Joni SandersCholesterol [Mass/Vol]188 mg/dLNormal<=200The [facility] Comment on above:Performed By: #### DATBMP #### [facility] [address] [place] [address] Dr. Joni Sahaesterol in HDL [Mass/Vol]45 mg/iMJlhisp89-94Agz [facility] HospitalComment on above:Performed By: #### DATBMP #### [facility] [address] [address] [address] Joni SandersCholesterol in LDL [Mass/Vol]102.2 mg/dLNoWVUMedicine Barnesville HospitalComment on above:Performed By: #### DATBMP #### [facility] [address] [address] [address] Joni SandersCO2 [Moles/Vol]27.7 mmol/DYcjwmk55.0-32.0The [facility] Comment on above:Performed By: #### DATBMP #### [facility] [address] [address] [address] Joni SandersCreatinine [Mass/Vol]1.00 mg/dLNormal0.70-1.30The [facility] HospitalComment on above:Performed By: #### DATBMP #### [facility] [address] [address] [address] Joni DavilaGFR-AF CENTRAL AFRICAN>60Normal>=60The [facility] HospitalComment on above:Performed By: #### DATBMP #### [facility] [address] [address] [address] Joni DavilaGFR-NON AF CENTRAL AFRICAN>60Normal>=60The [facility] HospitalComment on above:Performed By: #### DATBMP #### [facility] [address] [address] [address] Joni SandersGlucose [Mass/Vol]107 mg/dLCritically fndw00-449Ldx [facility] HospitalComment on above:Performed By: #### DATBMP #### [facility] [address] [address] [address] Joni SandersHDL NORMAL> or = 60 mg/dl - LOW CARDIOVASCULAR RISK <40 mg/dl - HIGH CARDIOVASCULAR RISKMercer County Community HospitalComment on above:Performed By: #### DATBMP #### [facility] [address] [address] [address] Joni SandersLDL CALC NORMALSEE BELOWMercer County Community HospitalComment on above:Result Comment: <100 mg/dl OPTIMAL 100 - 129 mg/dl NEAR OR ABOVE OPTIMAL 130 - 159 mg/dl BORDERLINE HIGH 160 - 189 mg/dl HIGH >190 mg/dl VERY HIGH Performed By: #### DATBMP #### [facility] [address] [place] [address] Dr. Joni SandersPotassium [Moles/Vol]4.4 mmol/LNormal3.5-5.1The [facility] Comment on above:Performed By: #### DATBMP #### [facility] [address] [address] [address] Joni SandersSodium [Moles/Vol]140 mmol/RIfykhs335-868Grs [facility] Comment on above:Performed By: #### DATBMP #### [facility] [address] [place] [address] Dr. Joni SandersTriglyceride [Mass/Vol]204 mg/dLCritically high<=150The [facility] HospitalComment on above:Performed By: #### DATBMP #### [facility] [address] [address] [address] Joni SandersUrea nitrogen [Mass/Vol]22.0 mg/dLCritically high7.0-18.0The [facility] HospitalComment on above:Performed By: #### DATBMP #### [facility] [address] [place] [address] Dr. Joni SandersUrea nitrogen/Creatinine [Mass ratio]22.0 mg/mgNoWVUMedicine Barnesville HospitalComment on above:Performed By: #### DATBMP #### [facility] [address] [place] [address] Dr. Joni SandersVLDL CALC40.8 mg/dLNoWVUMedicine Barnesville HospitalComment on above: Performed By: #### DATBMP #### [facility] [address] [place] [address] Dr. Joni Sanders Vital Signs Date TimeVital SignValuePerforming HqazqiwjtAojcbdaz24-43-3679 16:36-0400Body .9 cmSteven Rusher DPM Work Phone: [facility] HospitalNrtwcidimf57-21-0250 16:36-0400Body mass index (BMI) [Ratio]25.5 kg/t0Skclrg Rusher DPM Work Phone: [phone] [place], [place] 7384410-29-2025 16:36-0400Body uzvthm44.28 kgSteven Rusher DPM Work Phone: [phone] [place], [place] 7384410-24-2025 09:42-0400Body zlexxx691.88 cmBenjamin Ball DO Work Phone: [phone] [place], [place] 0601810-24-2025 09:42-0400 Body mass index (BMI) [Ratio]29.9 kg/f5Wfnodorb Ball DO Work Phone: [phone])[address] [place], [place] 0601810-24-2025 09:42-0400 Body tgubsy52.96 kgBenjamin Ball DO Work Phone: [phone])[address] [place], [place] 0601810-24-2025 09:42-0400 Diastolic blood mm[Hg]Yuli Ball DO Work Phone: [phone] [place], [place] 0601810-24-2025 09:42-0400 Heart dnin746 /minBenjamin Ball DO Work Phone: [phone])[address] [place], [place] 0601810-24-2025 09:42-0400 Respiratory rate12 /minBenjamin Ball DO Work Phone: [phone] [place], [place] 0601810-24-2025 09:42-0400 Systolic blood dcybwatf978 mm[Hg]Yuli Ball DO Work Phone: [phone] [place], [place] 0601810-09-2025 11:17-0400 Body maeqhn554.9 cmSteven Rusher DPM Work Phone: [phone] [place], [place] 7384410-09-2025 11:17-0400Body mass index (BMI) [Ratio]25.58 kg/z7Dpdvmj Rusher DPM Work Phone: [address] [place], [place] 7384410-09-2025 11:17-0400Body yrqoeg83.55 kgSteven Rusher DPM Work Phone: [phone] [place], [place] 7384410-01-2025 10:20-0400Body .9 cmSteven Rusher DPM Work Phone: [phone] [place], [place] 7384410-01-2025 10:20-0400Body mass index (BMI) [Ratio]25.58 kg/z3Fdznot Rusher DPM Work Phone: [phone])[address] [place], [place] 7384410-01-2025 10:20-0400Body lcrumh07.55 kgSteven Rusher DPM Work Phone: [phone])[address] [place], [place] 7384409-26-2025 08:48-0400Body iltjpo412.9 cmSteven Rusher DPM Work Phone: [phone])[address] [place], [place] 7384409-26-2025 08:48-0400Body mass index (BMI) [Ratio]25.58 kg/d4Qdvyce Rusher DPM Work Phone: [phone])[address] [place], [place] 7384409-26-2025 08:48-0400Body nfcbyu96.55 kgSteven Rusher DPM Work Phone: [phone] [place], [place] 7384409-11-2025 10:02-0400Body .9 cmZabrina Suaerz MD Work Phone: WMiami [facility] HospitalYwlyss02-78-7459 10:02-0400Body mass index (BMI) [Ratio]26.01 kg/c4KdzkxaZabrina Suarez MD Work Phone: JMiami Valley HospitalOtcxca24-40-6848 10:02-0400Body ycdejz70 kg Zabrina Suarez MD Work Phone: SMi[facility] HospitalRsgbsw26-93-1746 10:02-0400Diastolic blood oroketng73 mm[Hg]Zabrina Suarez MD Work Phone: UMiami Valley HospitalWuptcg44-44-3767 10:02-0400Heart rate91 /min Zabrina Suarez MD Work Phone: NMiami [facility] HospitalRmhpnw50-32-8841 10:02-0400Systolic blood cqcxenrp389 mm[Hg]Zabrina Suarez MD Work Phone: ZMiami Valley HospitalRlaugv20-60-3701 13:02-0400Body qinehh923.9 Alhaji Hopper MD Work Phone: c[facility] hospitaland Werevz48-99-0381 13:02-0400Body mass index (BMI) [Ratio]25.09 kg/i6HkkeyhykmlJose Antonio Hopper MD Work Phone: [facility]and Pwticd56-17-2174 13:02-0400Body temperature 98.6 [degF]Jose Antonio Hopper MD Work Phone: [facility]and Nlpldy16-47-5798 13:02-0400Body .92 kgJose Antonio Hopper MD Work Phone: [facility]and Woxgtx19-67-9105 13:02-0400Diastolic blood fdfgzuqu86 mm[Hg]Jose Antonio Hopper MD Work Phone: cMiami [facility] HospitalMpsxdi76-57-9204 13:02-0400Heart rate86 /min Jose Antonio Hopper MD Work Phone: [facility] Mrudrq21-01-0834 13:02-0400Respiratory rate 17 /minJose Antonio Hopper MD Work Phone: [facility] Zjrkvr85-62-8826 13:02-0914AoR8% (BldA) [Mass fraction]96 %Jose Antonio Hopper MD Work Phone: [facility] Uqusky37-65-7138 13:02-0400Systolic blood mm[Hg]Jose Antonio Hopper MD Work Phone: [facility] Cmqpij68-99-9579 09:04-0400Body mass index (BMI) [Ratio]25.35 kg/f0CoirwTriston Riggs MD Work Phone: [facility]07-28-2025 09:04-0400Body temperature 98.01 [degF]Triston Riggs MD Work Phone: [facility]07-28-2025 09:04-0400Body utxupn66.8 kgTriston Riggs MD Work Phone: [phone]07-28-2025 09:04-0400Diastolic blood ygiayssk18 mm[Hg]Triston Riggs MD Work Phone: [phone]07-28-2025 09:04-0400Heart rate85 /min Triston Riggs MD Work Phone: [phone]07-28-2025 09:04-0400Respiratory rate 16 /minTriston Riggs MD Work Phone: [phone]07-28-2025 09:04-9466XtG0% (BldA) [Mass fraction]86 %Triston Riggs MD Work Phone: [phone]07-28-2025 09:04-0400Systolic blood lxcfkazd557 mm[Hg]Triston Riggs MD Work Phone: [phone]06-09-2025 22:15-0400Body temperature 97.2 [degF]Triston Riggs MD Work Phone: [phone]06-09-2025 22:15-0400Diastolic blood wuhzivkv75 mm[Hg]Triston Riggs MD Work Phone: [phone]06-09-2025 22:15-0400Heart rate88 /min Triston Riggs MD Work Phone: [phone]06-09-2025 22:15-0400Respiratory rate 16 /minTriston Riggs MD Work Phone: [phone]06-09-2025 22:15-3615InN6% (BldA) [Mass fraction]98 %Triston Riggs MD Work Phone: [facility]06-09-2025 22:15-0400Systolic blood cnzbjitt044 mm[Hg]Triston Riggs MD Work Phone: [phone]06-06-2025 09:04-0400Body .9 cmNavneet Mendiola MD Work Phone: [facility]06-06-2025 09:04-0400Body mass index (BMI) [Ratio]23.46 kg/s2WjittceZac Mendiola MD Work Phone: [facility]06-06-2025 09:04-0400Body puhqfk56.47 kgNageneva Mendiola MD Work Phone: [facility]06-06-2025 09:04-0400Diastolic blood jibjxtze94 mm[Hg]Zac Mendiola MD Work Phone: [facility]06-06-2025 09:04-0400Heart rate64 /min Zac Mendiola MD Work Phone: [facility]06-06-2025 09:04-2431UgE6% (BldA) [Mass fraction]99 %Zac Mendiola MD Work Phone: [facility]06-06-2025 09:04-0400Systolic blood ligyneyl756 mm[Hg]Zac Mendiola MD Work Phone: [facility]06-05-2025 13:58-0400Body temperature 96.8 [degF]Triston Riggs MD Work Phone: [facility]06-05-2025 13:58-0400Diastolic blood ycbhfvif76 mm[Hg]Triston Riggs MD Work Phone: [facility]06-05-2025 13:58-0400Heart rate81 /min Triston Riggs MD Work Phone: [facility]06-05-2025 13:58-0400Respiratory rate 16 /minTriston Riggs MD Work Phone: [facility]06-05-2025 13:58-2515CwZ7% (BldA) [Mass fraction]97 %Triston Riggs MD Work Phone: [facility]06-05-2025 13:58-0400Systolic blood lrgtisoa601 mm[Hg]Triston Riggs MD Work Phone: [facility]05-30-2025 13:02-0400Body eihxah290.9 Alhaji Hopper MD Work Phone: [facility] Uqcepy67-84-7150 13:02-0400Body mass index (BMI) [Ratio]26.99 kg/o4IqrrqoiolnJose Antonio Hopper MD Work Phone: [facility] Xunmxg05-53-4247 13:02-0400Body temperature 98.6 [degF]Jose Antonio Hopper MD Work Phone: [facility] Ebyows10-96-5347 13:02-0400Body xyqjgy88.27 kgJose Antonio Hopper MD Work Phone: [facility] Kqnaxq21-78-0580 13:02-0400Diastolic blood fiwkqklu63 mm[Hg]Jose Antonio Hopper MD Work Phone: [facility] Ngzuqh14-04-8464 13:02-0400Heart rate81 /min Jose Antonio Hopper MD Work Phone: [facility] Lcwnes61-00-1970 13:02-0400Respiratory rate 16 /minJose Antonio Hoppre MD Work Phone: [facility] Nsbkvv55-61-7956 13:02-2744IwE9% (BldA) [Mass fraction]96 %Jose Antonio Hopper MD Work Phone: [facility] Uipbfz80-68-3524 13:02-0400Systolic blood mm[Hg]Jose Antonio Hopper MD Work Phone: [facility] Mhozdm57-53-0452 08:44-0400Body .9 cmZabrina Suarez MD Work Phone: [facility] Zslbul55-71-4197 08:44-0400Body mass index (BMI) [Ratio]27.12 kg/p7IxboolZabrina Suarez MD Work Phone: BMi[facility] HospitalXiqpaw03-76-5043 08:44-0400Body temperature 97.9 [degF]Zabrina Suarez MD Work Phone: QMiami [facility] HospitalUiadop50-43-5623 08:44-0400Body jgnmos13.7 kgZabrina Suarez MD Work Phone: [phone] Valley HospitalDnvsjp33-30-5718 08:44-0400Diastolic blood vnvziuhj61 mm[Hg]Zabrina Suarez MD Work Phone: BMi[facility] HospitalRmxexj36-77-7785 08:44-0400Heart rate83 /min Zabrina Suarez MD Work Phone: [phone] Valley HospitalUsfqbk89-77-5839 08:44-0400Systolic blood sxwfjsbu272 mm[Hg]Zabrina Suarez MD Work Phone: [phone] Valley HospitalRubofv23-07-3284 14:34-0400Body jzfeat843.9 Kathia Ly 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.[employer] Work Phone: [phone]04-30-2025 14:34-0400Body mass index (BMI) [Ratio]26.72 kg/y6CmtirlpXiomara Ly 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.[employer] UP [employer] Work Phone: [facility]04-30-2025 14:34-0400Body temperature 97.2 [degF]Xiomara Ly 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.SET UP [employer] LINE Work Phone: [facility]04-30-2025 14:34-0400Body .36 kgXiomara Ly 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.SET UP MECH[employer] LINE Work Phone: [address] [address]-30-2025 14:34-0400Diastolic blood biisgmkr10 mm[Hg]Xiomara Ly 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.SET UP MECH[employer]IC [employer] LINE Work Phone: [address] [address]-30-2025 14:34-0400Heart rate84 /min Xiomara Ly 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.[employer] UP [employer] LINE Work Phone: [facility]04-30-2025 14:34-3998FqO8% (BldA) [Mass fraction]95 %Xiomara Ly APRN.[employer] Work Phone: [phone]04-30-2025 14:34-0400Systolic blood ciuozdkj767 mm[Hg]Xiomara Ly APRN.[employer] Work Phone: [phone]04-30-2025 12:51-0400Body temperature 96.8 [degF]Triston Riggs MD Work Phone: [phone]04-30-2025 12:51-0400Diastolic blood jaectyhe03 mm[Hg]Triston Riggs MD Work Phone: [phone]04-30-2025 12:51-0400Heart rate88 /min Triston Riggs MD Work Phone: [phone]04-30-2025 12:51-0400Respiratory rate 16 /minTriston Riggs MD Work Phone: [phone]04-30-2025 12:51-6798RhF1% (BldA) [Mass fraction]98 %Triston Riggs MD Work Phone: [phone] [facility]04-30-2025 12:51-0400Systolic blood lrtiabaq801 mm[Hg]Triston Riggs MD Work Phone: [phone]04-11-2025 12:20-0400Heart rate67 /min Shay Dennis MD Work Phone: [phone] [address]-11-2025 12:20-0400Respiratory rate 16 /minShay Dennis MD Work Phone: [phone] [address]-11-2025 12:20-6988NyR6% (BldA) [Mass fraction]99 %Shay Dennis MD Work Phone: [phone] [address]-11-2025 12:10-0400Diastolic blood zomxruzu21 mm[Hg]Shay Dennis MD Work Phone: [phone] [address]-11-2025 12:10-0400Systolic blood ylmwsqog169 mm[Hg]Shay Dennis MD Work Phone: [facility]04-11-2025 11:47-0400Body temperature 96.8 [degF]Shay Dennis MD Work Phone: [facility]04-11-2025 10:49-0400Body .9 Madelyn Dennis MD Work Phone: [facility]04-11-2025 10:49-0400Body mass index (BMI) [Ratio]26.45 kg/n5EpyjedShay Dennis MD Work Phone: [facility]04-11-2025 10:49-0400Body sjlovu50.45 kgShay Dennis MD Work Phone: [facility]03-28-2025 12:11-0400[facility] higacd285.88 [facility] 12:11-0400Body mass index (BMI) [Ratio]27.3 kg/h4AzfyoiutjAultman Hospital03-28-2025 12:11-0400Body cqikju58.28 [facility]03-28-2025 12:11-0400Diastolic blood ajnllusy53 mm[Hg][facility]03-28-2025 12:11-0400 Heart rate88 /[facility]03-28-2025 12:11-0400 Respiratory rate12 /[facility]03-28-2025 12:11-0400 Systolic blood mm[Hg][facility]03-21-2025 13:30-0400Body odjabf186.9 cmVjuan francisco Hopper MD Work Phone: [facility] Dfdwlt34-59-4635 13:30-0400Body mass index (BMI) [Ratio]25.36 kg/z3ZolvuhuudbJose Antonio Hopper MD Work Phone: [place] Svrwzg31-66-6110 13:30-0400Body temperature 98.6 [degF]Jose Antonio Hopper MD Work Phone: [place] [address]-21-2025 13:30-0400Body iiyptu00.82 kgJose Antonio Hopper MD Work Phone: [facility] Sksapl32-84-2900 13:30-0400Diastolic blood vhzaemtp33 mm[Hg]Jose Antonio Hopper MD Work Phone: [place] [address]-21-2025 13:30-0400Heart rate77 /min Jose Antonio Hopper MD Work Phone: [facility] Nmuqih69-87-9946 13:30-0400Respiratory rate 15 /minJose Antonio Hopper MD Work Phone: [facility] Kbkyws77-72-9123 13:30-0098HqC1% (BldA) [Mass fraction]96 %Jose Antonio Hopper MD Work Phone: [facility] HospitalThhdhs41-02-8148 13:30-0400Systolic blood uadrgheh107 mm[Hg]JoseA ntonio Hopper MD Work Phone: [facility] HospitalFzxfhw84-31-3032 10:43-0400Body .9 cmSue Murillo MD Work Phone: [facility]03-10-2025 10:43-0400Body mass index (BMI) [Ratio]25.44 kg/e4YrmtdnSue Murillo MD Work Phone: [facility]03-10-2025 10:43-0400Body temperature 97.9 [degF]Sue Murillo MD Work Phone: [place] [address]-10-2025 10:43-0400Body .09 kgSue Murillo MD Work Phone: [place] [address]-10-2025 10:43-0400Diastolic blood wchjbjki95 mm[Hg]Sue Murillo MD Work Phone: [place] [address]-10-2025 10:43-0400Heart rate78 /min Sue Murillo MD Work Phone: [phone]03-10-2025 10:43-5186EdD5% (BldA) [Mass fraction]96 %Sue Murillo MD Work Phone: [facility]03-10-2025 10:43-0400Systolic blood mevcttxf899 mm[Hg]Sue Murillo MD Work Phone: [facility]03-04-2025 14:09-0500Body mgcyzg938.9 cmCmichelle Barragan 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.[employer] Work Phone: [place] Xlwtzm93-27-6737 14:09-0500Body mass index (BMI) [Ratio]26.42 kg/j9GbulpDella Barragan 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.[employer] Work Phone: [facility] SystemVqweto37-17-6746 14:09-0500Body temperature 98.2 [degF]Della Barragan 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.[employer] Work Phone: [place] Ttmegs84-88-0982 14:09-0500Body eiktxe92.36 kgCardavey Barragan 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.[employer] Work Phone: [place] Yvympv37-30-0732 14:09-0500Diastolic blood uvdlsome79 mm[Hg]Della Barragan 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.[employer] Work Phone: [place] Pgzrxd40-90-5539 14:09-0500Heart rate82 /min Della Barragan 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.[employer] Work Phone: [place] Sljstt23-37-4072 14:09-0500Respiratory rate 14 /minDella Barragan 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.[employer] Work Phone: [place] Omdxet22-12-1781 14:09-7991QgQ3% (BldA) [Mass fraction]98 %Della Barragan 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.[employer] Work Phone: [place] Ktazif18-06-4995 14:09-0500Systolic blood fwrkbwxi455 mm[Hg]Della Barragan 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.[employer] Work Phone: [place] Gnaptx55-02-1460 13:27-0500Body jckhur537.9 Alhaji Hopper MD Work Phone: [facility] Ggekac52-08-8227 13:27-0500Body mass index (BMI) [Ratio]26.31 kg/f2PnscfealakJose Antonio Hopper MD Work Phone: [facility] Dsvprf82-42-4609 13:27-0500Body temperature 98.6 [degF]Jose Antonio Hopper MD Work Phone: [facility] Ygfjjq82-96-9197 13:27-0500Body kg Jose Antonio Hopper MD Work Phone: [facility] Raajqt17-59-8623 13:27-0500Diastolic blood itlqbgph36 mm[Hg]Jose Antonio Hopper MD Work Phone: [facility] Yeagnd00-14-6400 13:27-0500Heart rate75 /min Jose Antonio Hopper MD Work Phone: [facility] Zldbfw60-71-9611 13:27-0500Respiratory rate 16 /minJose Antonio Hopper MD Work Phone: [facility] Wpustt26-87-1550 13:27-3405EiC5% (BldA) [Mass fraction]98 %Jose Antonio Hopper MD Work Phone: [facility] Cqmkup64-56-8671 13:27-0500Systolic blood ehogxpyt275 mm[Hg]Jose Antonio Hopper MD Work Phone: [facility] Jzcgag51-16-2087 12:49-0500Body temperature 97.2 [degF]Triston Riggs MD Work Phone: [facility]02-03-2025 12:49-0500Diastolic blood mm[Hg]Triston Riggs MD Work Phone: [facility]02-03-2025 12:49-0500Heart rate89 /min Triston Riggs MD Work Phone: [facility]02-03-2025 12:49-0500Respiratory rate 16 /minTriston Riggs MD Work Phone: [phone]02-03-2025 12:49-3161ErT4% (BldA) [Mass fraction]97 %Triston Riggs MD Work Phone: [facility]02-03-2025 12:49-0500Systolic blood hjflwick609 mm[Hg]Triston Riggs MD Work Phone: [facility]01-28-2025 16:31-0500Body yhsiey919.88 [facility]01-28-2025 16:31-0500Body mass index (BMI) [Ratio]25.6 kg/x9NrwgwulanAultman Hospital01-28-2025 16:31-0500Body mtfojfrtyld96.1 [degF][facility]01-28-2025 16:31-0500Body dxjqbe25.78 kgA[facility]man Hospital01-28-2025 16:31-0500Diastolic blood tuwywfht10 mm[Hg][facility]01-28-2025 16:31-0500 Heart rate87 /[facility]01-28-2025 16:31-0500 Respiratory rate12 /[facility]01-28-2025 16:31-0500 Systolic blood telsvvgk618 mm[Hg][facility]01-06-2025 09:15-0500Body nfrtlervupi71 [degF]Triston Riggs MD Work Phone: [facility]01-06-2025 09:15-0500Diastolic blood mm[Hg]Triston Riggs MD Work Phone: [facility]01-06-2025 09:15-0500Heart rate91 /min Triston Riggs MD Work Phone: [facility]01-06-2025 09:15-0500Respiratory rate 16 /minTriston Riggs MD Work Phone: [facility]01-06-2025 09:15-9588FnW6% (BldA) [Mass fraction]98 %Tristno Riggs MD Work Phone: [facility]01-06-2025 09:15-0500Systolic blood gibmernj610 mm[Hg]Triston Riggs MD Work Phone: [facility]12-27-2024 14:15-0500Body ejcckr770.9 Alhaji Hopper MD Work Phone: [facility] Qxmenp29-44-3192 14:15-0500Body mass index (BMI) [Ratio]25.63 kg/l1NfliemktalJose Antonio Hopper MD Work Phone: [facility] Odqojf54-80-2821 14:15-0500Body temperature 98.6 [degF]Jose Antonio Hopper MD Work Phone: [facility] Jwnbsw01-92-5327 14:15-0500Body pzvybx77.73 kgJose Antonio Hopper MD Work Phone: [facility] Pjfwam57-35-4533 14:15-0500Diastolic blood mm[Hg]Jose Antonio Hopper MD Work Phone: [facility] Kwcbof40-10-4941 14:15-0500Heart rate83 /min Jose Antonio Hopper MD Work Phone: [facility] Qqqbat39-36-7970 14:15-0500Respiratory rate 16 /minJose Antonio Hopper MD Work Phone: [facility] Nnpohz37-87-4381 14:15-7143DxD2% (BldA) [Mass fraction]98 %Jose Antonio Hopper MD Work Phone: [facility] Cupkcy96-65-9615 14:15-0500Systolic blood miwnsuhr177 mm[Hg]Jose Antonio Hopper MD Work Phone: [place] Bdigxo36-69-9166 12:22-0500Body .9 cmSteffen Villa MD Work Phone: [facility] SystemKybswk48-76-7773 12:22-0500Body mass index (BMI) [Ratio]25.3 kg/i5AnaurqSteffen Villa MD Work Phone: c[facility] HospitalMebuwx00-37-1568 12:22-0500Body temperature 97.9 [degF]Steffen Villa MD Work Phone: c[facility] HospitalSyegyj03-54-4487 12:22-0500Body .6 kgSteffen Villa MD Work Phone: c[facility] HospitalIqgvmd36-77-4135 12:22-0500Diastolic blood byphzrth44 mm[Hg]Steffen Villa MD Work Phone: [facility] HospitalOhwwem23-72-5289 12:22-0500Heart rate78 /min Steffen [place] MD Work Phone: c[facility] HospitalSukaaq18-84-2757 12:22-0500Systolic blood zyxgokre920 mm[Hg]Steffen Villa MD Work Phone: [facility] HospitalTjghpr19-29-7362 16:01-0500Body kuljuj611.9 cmSue Murillo MD Work Phone: [facility]12-10-2024 16:01-0500Body mass index (BMI) [Ratio]25.23 kg/t3MjnrulSue Murillo MD Work Phone: [facility]12-10-2024 16:01-0500Body temperature 97.2 [degF]Sue Murillo MD Work Phone: [facility]12-10-2024 16:01-0500Body .37 kgSue Murillo MD Work Phone: [facility]12-10-2024 16:01-0500Diastolic blood guxshrjg92 mm[Hg]Sue Murillo MD Work Phone: [facility]12-10-2024 16:01-0500Heart rate81 /min Sue Murillo MD Work Phone: [facility]12-10-2024 16:01-1025JfK1% (BldA) [Mass fraction]98 %Sue Murillo MD Work Phone: [phone]12-10-2024 16:01-0500Systolic blood hacgtimr162 mm[Hg]Sue Murillo MD Work Phone: [facility]12-02-2024 10:30-0500Body mass index (BMI) [Ratio]28.4 kg/d0ThknbiqLouise Cesar MD Work Phone: [facility]12-02-2024 10:30-0500Body temperature 97.81 [degF]Louise Cesar MD Work Phone: [facility]12-02-2024 10:30-0500Body ybxilc70 kg Louise Cesar MD Work Phone: [facility]12-02-2024 10:30-0500Diastolic blood ennteikq81 mm[Hg]Louise Cesar MD Work Phone: [facility]12-02-2024 10:30-0500Heart rate76 /min Louise Cesar MD Work Phone: [facility]12-02-2024 10:30-2908BeL7% (BldA) [Mass fraction]96 %Louise Cesar MD Work Phone: [facility]12-02-2024 10:30-0500Systolic blood tepoijhd354 mm[Hg]Louise Cesar MD Work Phone: [facility]11-27-2024 10:27-0500Body bodnvp097.9 Alhaji Hopper MD Work Phone: [facility] Usdnqm99-07-1188 10:27-0500Body mass index (BMI) [Ratio]28.35 kg/y5TandwenkhcJose Antonio Hopper MD Work Phone: [facility] Enowat93-89-3841 10:27-0500Body temperature 98.6 [degF]Jose Antonio Hopper MD Work Phone: [facility] Vrsuwu50-05-9767 10:27-0500Body ewlvum83.8 kgJose Antonio Hopper MD Work Phone: [facility] Azgwqo60-63-0700 10:27-0500Diastolic blood hohzmerj04 mm[Hg]Jose Antonio Hopper MD Work Phone: [facility] Jdwkig73-03-0272 10:27-0500Heart rate75 /min Jose Antonio Hopper MD Work Phone: [facility] Vhbcbj96-68-8335 10:27-0500Respiratory rate 16 /minJose Antonio Hopper MD Work Phone: [facility] Vlbelf46-11-8397 10:27-2682XeD7% (BldA) [Mass fraction]98 %Jose Antonio Hopper MD Work Phone: [facility] Cirtah57-88-8857 10:27-0500Systolic blood ckhnweoe748 mm[Hg]Jose Antonio Hopper MD Work Phone: [facility] Mmeenm02-80-6213 12:30-0500Diastolic blood kxxpmpum29 mm[Hg]Vic Ponce MD Work Phone: [facility] Ppmyxo27-17-1884 12:30-0500Heart rate85 /min Vic Ponce MD Work Phone: [facility] Vbmukp06-40-0716 12:30-0500Respiratory rate 21 /minEjonathan Ponce MD Work Phone: c[facility] HospitalPqaltg82-53-5375 12:30-9404ZaX0% (BldA) [Mass fraction]98 %Vic Ponce MD Work Phone: c[facility] HospitalXxwltj02-47-3969 12:30-0500Systolic blood vduzezjn190 mm[Hg]Vic Ponce MD Work Phone: [facility] HospitalDwvpoa77-59-8121 12:02-0500Body temperature 99.1 [degF]Vic Ponce MD Work Phone: c[facility] HospitalYstdyq98-73-8805 11:48-0500Body kbajib969.3 cmSue Murillo MD Work Phone: [facility]11-04-2024 11:48-0500Body mass index (BMI) [Ratio]29.18 kg/w9ZdadufSue Murillo MD Work Phone: [phone]11-04-2024 11:48-0500Body khqliw78.89 kgSue Murillo MD Work Phone: [phone]11-04-2024 11:48-0500Diastolic blood ushrgcdw65 mm[Hg]Sue Murillo MD Work Phone: [phone]11-04-2024 11:48-0500Heart rate89 /min Sue Murillo MD Work Phone: [phone]11-04-2024 11:48-9473EwW0% (BldA) [Mass fraction]97 %Sue Murillo MD Work Phone: [phone]11-04-2024 11:48-0500Systolic blood ssofjrsk653 mm[Hg]Sue Murillo MD Work Phone: [phone]10-14-2024 09:26-0400Body jajkhv746.3 cmSteffen Villa MD Work Phone: [phone] Valley HospitalAevsmc85-12-6184 09:26-0400Body mass index (BMI) [Ratio]28.9 kg/s0AcrzmqSteffen Villa MD Work Phone: c[facility] HospitalNnnvfm23-64-3504 09:26-0400Body temperature 97.7 [degF]Steffen Villa MD Work Phone: c[facility] HospitalJntbsz61-38-5581 09:26-0400Body kg Steffen Villa MD Work Phone: [phone] Valley HospitalKqnokm88-14-5340 09:26-0400Diastolic blood awrtuayf19 mm[Hg]Steffen Villa MD Work Phone: c[facility] HospitalJbilmk40-86-7876 09:26-0400Heart rate92 /min Steffen Villa MD Work Phone: c[facility] HospitalTpblmy19-53-6381 09:26-0400Systolic blood goagovjz646 mm[Hg]Steffen Villa MD Work Phone: c[facility] HospitalUzwzrq55-42-7749 13:48-0400Body txuuss461.8 cmHascar Zavarella PA-C Work Phone: [facility]10-01-2024 13:48-0400Body mass index (BMI) [Ratio]29.83 kg/y4Xeazom Zavarella PA-C Work Phone: [facility]10-01-2024 13:48-0400Body temperature 97.3 [degF]Ruma Zavarella PA-C Work Phone: [facility]10-01-2024 13:48-0400Body mmgozk95.3 kgRuma Zavarella PA-C Work Phone: [facility]10-01-2024 13:48-0400Diastolic blood unwckqcc24 mm[Hg]Ruma Zavarella PA-C Work Phone: [facility]10-01-2024 13:48-0400Heart rate88 /min Ruma Zavarella PA-C Work Phone: [facility]10-01-2024 13:48-0400Respiratory rate 16 /minHaylie Zavarella PA-C Work Phone: [facility]10-01-2024 13:48-1318LfU1% (BldA) [Mass fraction]98 %Ruma Carri PA-C Work Phone: [facility]10-01-2024 13:48-0400Systolic blood yqojvtpk540 mm[Hg]Ruma Carri BOO-C Work Phone: [facility]10-01-2024 10:24-0400Body mass index (BMI) [Ratio]27.8 kg/e9UkjrsjtLouise Cesar MD Work Phone: [facility]10-01-2024 10:24-0400Body afalfc49.99 kgLouise Cesar MD Work Phone: [facility]10-01-2024 10:24-0400Diastolic blood njqtexec02 mm[Hg]Louise Cesar MD Work Phone: [facility]10-01-2024 10:24-0400Heart rate82 /min Louise Cesar MD Work Phone: [facility]10-01-2024 10:24-8234YxU8% (BldA) [Mass fraction]98 %Louise Cesar MD Work Phone: [facility]10-01-2024 10:24-0400Systolic blood hcvzuzsf177 mm[Hg]Louise Cesar MD Work Phone: [facility]08-28-2024 13:08-0400Body yvbkel467.9 cmYehuda Dial MD Work Phone: [facility]08-28-2024 13:08-0400Body mass index (BMI) [Ratio]27.67 kg/j7YlduqcaYehuda Dial MD Work Phone: [facility]08-28-2024 13:08-0400Body kmyhtk63.53 kgYehuda Dial MD Work Phone: [place] [address]-28-2024 13:08-0400Diastolic blood mm[Hg]Yehuda Dial MD Work Phone: [place] [address]-28-2024 13:08-0400Systolic blood xbqvsnew995 mm[Hg]Yehuda Dial MD Work Phone: [place] [address]-28-2024 10:38-0400Body tnzwpi184.9 Alhaji Hopper MD Work Phone: [facility] Xboani55-68-3776 10:38-0400Body mass index (BMI) [Ratio]27.67 kg/t0WhecvgurnrJose Antonio Hopper MD Work Phone: [place] [address]-28-2024 10:38-0400Body temperature 98.6 [degF]Jose Antonio Hopper MD Work Phone: [place] [address]-28-2024 10:38-0400Body kbusap47.53 kgJose Antonio Hopper MD Work Phone: [place] [address]-28-2024 10:38-0400Diastolic blood dyvaoqlc77 mm[Hg]Jose Antonio Hopper MD Work Phone: [facility] Sfsecy12-82-7266 10:38-0400Heart rate86 /min Jose Antonio Hopper MD Work Phone: [facility] Uqahrr03-10-0983 10:38-0400Respiratory rate 18 /minJose Antoino Hopper MD Work Phone: [facility] Dxurlo09-97-0693 10:38-6731MxS8% (BldA) [Mass fraction]98 %Jose Antonio Hopper MD Work Phone: [facility] Wracvg16-24-5734 10:38-0400Systolic blood ladmpnnj269 mm[Hg]Jose Antonio Hopper MD Work Phone: c[facility] HospitalJqzfmj36-72-2959 13:32-0400Body gamoyv887.9 [facility] 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.[employer] Work Phone: [phone] [address]-20-2024 13:32-0400Body mass index (BMI) [Ratio]27.12 kg/m2SsnrjmznDelaware Psychiatric Center 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.[employer] Work Phone: [phone]08-20-2024 13:32-0400Body temperature 97.11 [degF][facility] 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.[employer] Work Phone: [phone] [address]-20-2024 13:32-0400Body sewvlc56.7 kgDel[facility] 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.[employer] Work Phone: [phone]08-20-2024 13:32-0400Diastolic blood cyquoupz60 mm[Hg][facility] 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.[employer] Work Phone: [phone]08-20-2024 13:32-0400Heart rate75 /min [facility] 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.[employer] Work Phone: [phone] [address]-20-2024 13:32-0400Respiratory rate 16 /minDel[facility] 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.[employer] Work Phone: [phone] [address]-20-2024 13:32-1107QoP4% (BldA) [Mass fraction]95 %[facility] 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.[employer] Work Phone: [phone]08-20-2024 13:32-0400Systolic blood zcjowlrt655 mm[Hg][facility] 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.[employer] Work Phone: [phone]07-31-2024 11:36-0400Body giolgd600.9 Alhaji Hopper MD Work Phone: [facility] HospitalTvldvv56-06-5488 11:36-0400Body mass index (BMI) [Ratio]29.02 kg/o4KsjmkykktpJose Antonio Hopper MD Work Phone: [place] [address]-31-2024 11:36-0400Body temperature 98.6 [degF]Jose Antonio Hopper MD Work Phone: [place] [address]-31-2024 11:36-0400Body .07 kgJose Antonio Hopper MD Work Phone: [place] [address]-31-2024 11:36-0400Diastolic blood hmwzevgm57 mm[Hg]Jose Antonio Hopper MD Work Phone: [place] [address]-31-2024 11:36-0400Heart rate80 /min Jose Antonio Hopper MD Work Phone: [place] [address]-31-2024 11:36-0400Respiratory rate 16 /minJose Antonio Hopper MD Work Phone: [place] [address]-31-2024 11:36-6444BeS6% (BldA) [Mass fraction]96 %Jose Antonio Hopper MD Work Phone: [place] [address]-31-2024 11:36-0400Systolic blood bfrtecnm298 mm[Hg]Jose Antonio Hopper MD Work Phone: c[facility] HospitalIvgjzb77-14-6695 15:28-0400Body oljeev987.9 cmYehuda Dial MD Work Phone: [place] [address]-22-2024 15:28-0400Body mass index (BMI) [Ratio]29.02 kg/v9NgnmrgxYehuda Dial MD Work Phone: [facility]07-22-2024 15:28-0400Body vfyozq36.07 kgYehuda Dial MD Work Phone: [place] [address]-22-2024 15:28-0400Diastolic blood uvlgspft83 mm[Hg]Yehuda Dial MD Work Phone: [facility]07-22-2024 15:28-0400Systolic blood qgvbbmso444 mm[Hg]Yehuda Dial MD Work Phone: [facility]07-22-2024 13:36-0400Body tzxpeg224.9 cmRuma Zavarella PA-C Work Phone: [facility]07-22-2024 13:36-0400Body mass index (BMI) [Ratio]29.08 kg/v6Rygckk Zavarella PA-C Work Phone: [facility]07-22-2024 13:36-0400Body temperature 97.2 [degF]Ruma Zavarella PA-C Work Phone: [place] [address]-22-2024 13:36-0400Body vqjuje13.25 kgRuma Zavarella PA-C Work Phone: [facility]07-22-2024 13:36-0400Diastolic blood mm[Hg]Ruma Zavarella PA-C Work Phone: [facility]07-22-2024 13:36-0400Heart rate80 /min Ruma Zavarella PA-C Work Phone: [place] [address]-22-2024 13:36-0400Respiratory rate 16 /minRuma Zavarella PA-C Work Phone: [facility]07-22-2024 13:36-0585PuF4% (BldA) [Mass fraction]96 %Ruma Zavarella PA-C Work Phone: [facility]07-22-2024 13:36-0400Systolic blood mm[Hg]Ruma Zavarella PA-C Work Phone: [place] [address]-05-2024 13:33-0400Body upcgnw169.9 Dov Landry APRN.CNP Work Phone: [place] [address]-05-2024 13:33-0400Body mass index (BMI) [Ratio]31.33 kg/s7CrgwjowoDel[facility] 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 Work Phone: [phone]07-05-2024 13:33-0400Body temperature 97.3 [degF][facility] 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.[facility] Work Phone: [phone] [facility] [place]07-05-2024 13:33-0400Body refeov258.78 [facility] 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.[facility] Work Phone: [facility] [place]07-05-2024 13:33-0400Respiratory rate 18 /min[facility] 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.[facility] Work Phone: [phone] [place]07-05-2024 13:33-0518JvU0% (BldA) [Mass fraction]100 %[facility] 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.[facility] Work Phone: [phone] [place]06-28-2024 13:40-0400Body aejcgz995.9 cmDel[facility] 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.[facility] Work Phone: [facility] [place]06-28-2024 13:40-0400Body mass index (BMI) [Ratio]31.1 kg/h3XxhgtpgyDelaware Psychiatric Center 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.[facility] Work Phone: [phone] [place]06-28-2024 13:40-0400Body temperature 97.3 [degF][facility] 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.[facility] Work Phone: [facility] [place]06-28-2024 13:40-0400Body hhjaiz010.01 [facility] 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.[facility] Work Phone: [facility] [place]06-28-2024 13:40-0400Diastolic blood mm[Hg][facility] 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.[facility] Work Phone: [phone] [place]06-28-2024 13:40-0400Heart rate68 /min [facility] 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.[employer] Work Phone: [phone] [place]06-28-2024 13:40-0400Respiratory rate 16 /min[facility] 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.[employer] Work Phone: [phone] [place]06-28-2024 13:40-0006OeE7% (BldA) [Mass fraction]99 %[facility] 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.[employer] Work Phone: [phone] [place]06-28-2024 13:40-0400Systolic blood tcrbhynu476 mm[Hg][facility] 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.[employer] Work Phone: [phone] [place]06-18-2024 13:21-0400Body mqjigq798.9 [facility] 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.[employer] Work Phone: [phone] [place]06-18-2024 13:21-0400Body mass index (BMI) [Ratio]30.61 kg/z1UjzzlrneDelaware Psychiatric Center 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.[employer] Work Phone: [phone] [place]06-18-2024 13:21-0400Body temperature 97.81 [degF][facility] 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.[employer] Work Phone: [phone] [place]06-18-2024 13:21-0400Body lomjry028.38 kgDel[facility] 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.[employer] Work Phone: [phone] [place]06-18-2024 13:21-0400Diastolic blood iqeocgfx39 mm[Hg][facility] 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.[employer] Work Phone: [phone] [place]06-18-2024 13:21-0400Heart rate74 /min [facility] Work Phone: [phone] [place]06-18-2024 13:21-0400Respiratory rate 14 /minDel[facility] 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.[employer] Work Phone: [phone] [place]06-18-2024 13:21-7071NjP6% (BldA) [Mass fraction]98 %[facility] 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.[employer] Work Phone: [phone] [address]-18-2024 13:21-0400Systolic blood cpmtqaxj040 mm[Hg][facility] 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.[employer] Work Phone: [phone] [place]06-14-2024 14:280400Body bthsow635.9 cmDel[facility] 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.[employer] Work Phone: [phone] [place]06-14-2024 14:28-0400Body mass index (BMI) [Ratio]31.57 kg/a1DpsrjxuwDelaware Psychiatric Center 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.[employer] Work Phone: [facility] [place]06-14-2024 14:28-0400Body temperature 97.3 [degF][facility] 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.[employer] Work Phone: [facility] [place]06-14-2024 14:28-0400Body agdrqv272.6 kgDel[facility] 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.[employer] Work Phone: [facility] [place]06-14-2024 14:28-0400Diastolic blood kglnqjco13 mm[Hg][facility] 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.[employer] Work Phone: [phone] [place]06-14-2024 14:28-0400Heart rate71 /min [facility] 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.[employer] Work Phone: [facility] [place]06-14-2024 14:28-0400Respiratory rate 14 /minDel[facility] 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.[employer] Work Phone: [facility] [place]06-14-2024 14:28-9107PvC9% (BldA) [Mass fraction]98 %[facility] 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.[employer] Work Phone: [phone] [place]06-14-2024 14:28-0400Systolic blood gkgldggi173 mm[Hg][facility] 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.[employer] Work Phone: [phone] [place]05-28-2024 15:33-0400Body temperature 97 [degF]Roseann Rosario MD Work Phone: [phone]28-2024 15:33-0400Diastolic blood usfmaaaz29 mm[Hg]Roseann Rosario MD Work Phone: [phone] Valley HospitalCbhinr28-44-7186 15:33-0400Heart rate92 /min Roseann Rosario MD Work Phone: [phone] Valley HospitalTfhros12-94-7513 15:33-0400Respiratory rate 24 /minRoseann Rosario MD Work Phone: [phone] Valley HospitalLrojzf97-35-9919 15:33-9098EfH7% (BldA) [Mass fraction]97 %Roseann Rosario MD Work Phone: [phone] Valley HospitalTdcncx79-67-4036 15:33-0400Systolic blood zreoguwq369 mm[Hg]Roseann Rosario MD Work Phone: [phone] Valley HospitalGeiwcb13-21-0692 15:03-0400Body metusu780.9 Breonna Rosario MD Work Phone: [phone]()[phone] Valley HospitalNsarfa56-69-3878 15:03-0400Body mass index (BMI) [Ratio]29.84 kg/y5RbrudafRoseann Rosario MD Work Phone: [phone] Valley HospitalUuqotp82-67-3125 15:03-0400Body cypnnb01.79 kgRoseann Rosario MD Work Phone: [phone] Valley HospitalFzxohg99-77-2539 13:22-0400Body rgqzal083.9 Ronald Flood MD, PhD Work Phone: [phone] [place]05-28-2024 13:22-0400Body mass index (BMI) [Ratio]29.84 kg/s5SwuahvRonaldo Flood MD, PhD Work Phone: [phone] [place]05-28-2024 13:22-0400Body temperature 97.3 [degF]Ronaldo Flood MD, PhD Work Phone: [phone] [place]05-28-2024 13:22-0400Body aubfdi86.79 kgRonaldo Flood MD, PhD Work Phone: [phone] [place]05-28-2024 13:22-0400Diastolic blood ieafquvt76 mm[Hg]Ronaldo Flood MD, PhD Work Phone: [phone] [place]05-28-2024 13:22-399Heart rate91 /min Ronaldo Flood MD, PhD Work Phone: [phone] [place]05-28-2024 13:22040Respiratory rate 14 /Abdullahi Flood MD, PhD Work Phone: [phone] [place]05-28-2024 13:22-7165HwQ0% (BldA) [Mass fraction]94 %Ronaldo Flood MD, PhD Work Phone: [phone] [place]05-28-2024 13:22-399Systolic blood nfjnieef092 mm[Hg]Ronaldo Flood MD, PhD Work Phone: [phone] [place]05-09-2024 12:01-0400Body fnlfue826.9 Ronald Flood MD, PhD Work Phone: [phone] [place]05-09-2024 12:01-0400Body mass index (BMI) [Ratio]30.24 kg/n0OhcjvkRonaldo Flood MD, PhD Work Phone: [phone] [place]05-09-2024 12:01-0400Body temperature 97.39 [degF]Ronaldo Flood MD, PhD Work Phone: [phone] [place]05-09-2024 12:01-0400Body iehvyi198.15 kgRonaldo Flood MD, PhD Work Phone: [phone] [place]05-09-2024 12:01-0400Diastolic blood zusnsfrw64 mm[Hg]Ronaldo Flood MD, PhD Work Phone: [phone] [place]05-09-2024 12:01-0400Heart rate82 /min Ronaldo Flood MD, PhD Work Phone: [phone] [place]05-09-2024 12:01-0400Respiratory rate 14 /Abdullahi Flood MD, PhD Work Phone: [facility] [place]05-09-2024 12:01-2879LnQ9% (BldA) [Mass fraction]98 %Ronaldo Flood MD, PhD Work Phone: [facility] [place]05-09-2024 12:01-0400Systolic blood bcutloxs326 mm[Hg]Ronaldo Flood MD, PhD Work Phone: [facility] [place]02-27-2024 13:47-0500Body rrzkas597.88 cmDO Sintia Clemente Work Phone: [phone] [place], [place] 2868902-27-2024 13:47-0500 Body mass index (BMI) [Ratio]32 kg/m2DO Sintiacandida Clemente Work Phone: [phone] [place], [place] 2868902-27-2024 13:47-0500 Body agrynr507.04 kgDO Sintia [facility] Work Phone: 1(485)[phone] [place], [place] 2868902-27-2024 13:47-0500 Diastolic blood dihfzlpc02 mm[Hg]DO Sintia Clemente Work Phone: 1([phone] [place], [place] 2868902-27-2024 13:47-0500 Heart rate88 /Vannesa Clemente Work Phone: [facility]02-27-2024 13:47-0500 Respiratory rate12 /minDO Sintia Clemente Work Phone: [phone] [place], [place] 2868902-27-2024 13:47-0500 Systolic blood dunucyth347 mm[Hg]DO Sintia Clemente Work Phone: 1([phone])[phone] [place], [place] 2868902-06-2024 13:30-0500 Body otckwh706.88 cmBenPenboost Other [employer] Other 02-06-2024 13:30-0500Body mass index (BMI) [Ratio] 31.16 kg/e8Ksbmpnni Ball Other [employer] Other 02-06-2024 13:30-0500Body agzsgs609.24 kgBenjamin Ball Other [employer] Other 02-06-2024 13:30-0500Diastolic blood iwcsrvuu57 mm[Hg] Yuli Ball Other [employer] Other 02-06-2024 13:30-0500Respiratory rate12 /minBenjamin Ball Other [employer] Other 02-06-2024 13:30-0500Systolic blood sqiwnntx691 mm[Hg] Yuli Ball Other [employer] Other 11-06-2023 10:00-0500Body wuvrsi575.88 cmBenjamin Ball Other [employer] Other 11-06-2023 10:00-0500Body mass index (BMI) [Ratio] 30.78 kg/m6Vlnzpzqi Ball Other [employer] Other 11-06-2023 10:00-0500Body alamaa872.97 kgBenjamin Ball Other [employer] Other 11-06-2023 10:00-0500Diastolic blood bcxbnfel437 mm[Hg]Yuli Ball Other [employer] Other 11-06-2023 10:00-0500Respiratory rate12 /minBenjamin Ball Other [employer] Other 11-06-2023 10:00-0500Systolic blood mm[Hg] Yuli Ball Other 158.680.3136[employer] Other 08-28-2023 15:16-0400Body xktqqa517.9 cmMargie Edouard DO Work Phone: 1([phone]obfqk36-55-7299 15:16-0400Body mass index (BMI) [Ratio]29.84 kg/q0GzszoMargie Edouard DO Work Phone: [phone]gzilf88-62-6667 15:16-0400Body titaas96.79 kg Margie Edouard DO Work Phone: 1([phone]eaonq94-19-7816 09:46-0400Body hvdiqq533.9 cm Nena Huff DO Work Phone: 1(161) [phone]wsKtjflg54-11-6276 09:46-0400Body mass index (BMI) [Ratio]29.84 kg/q7CnyvpNena Huff DO Work Phone: 1([phone]acajk78-81-5233 09:46-0400Body sgjrii21.79 kg Nena Huff DO Work Phone: [phone]wruax84-42-9704 10:00-0400Body pannhk412.88 cm Yuli Ball Other [employer] Other 07-27-2023 10:00-0400Body mass index (BMI) [Ratio] 30.11 kg/u5Rjdintme Ball Other [employer] Other 07-27-2023 10:00-0400Body ekybeu270.7 kgBenjamin Ball Other [employer] Other 07-27-2023 10:00-0400Diastolic blood scxdbnox88 mm[Hg] Yuli Ball Other [employer] Other 07-27-2023 10:00-0400Respiratory rate12 /minBenjamin Ball Other [place] [employer] Other 07-27-2023 10:00-0400Systolic blood glcowjjh539 mm[Hg] Yuli Ball Other [employer] Other 06-05-2023 13:38-0400Body yeooed867.9 cmBrian Steginsky DO Work Phone: 1([phone]kcegd54-04-9630 13:38-0400Body mass index (BMI) [Ratio]30.24 kg/m8Mxrsw Steginsky DO Work Phone: 1([phone]fWqyjod45-19-8971 13:38-0400Body plwfgu807.15 kg Margie Steginsky DO Work Phone: 1(778) [phone]ksVdaofb38-69-2725 13:20-0400Body asoojn593.9 cm Grecia Faith PA-C Work Phone: 1(996) [phone]nowzp68-25-8556 13:20-0400Body mass index (BMI) [Ratio]30.24 kg/p3HilitGrecia Faith PA-C Work Phone: 1(675) [phone]oepxk83-75-5061 13:20-0400Body osfwdr246.15 kg Grecia Faith PA-C Work Phone: 1(535) [phone]MgtcWdlgjj30-54-3418 13:16-0400Body culkbm949.9 cm Margie Steginsky DO Work Phone: 1(280) [phone]wfPbvxra66-92-1373 13:16-0400Body mass index (BMI) [Ratio]30.24 kg/i2Wrqxw Steginsky DO Work Phone: 1(316) [phone]vwzVdghhu27-34-8535 13:16-0400Body lxzhse147.15 kg Margie Steginsky DO Work Phone: 1(441) [phone]dasTbbhwy43-83-5041 14:44-0500BMI (Body Mass Index) 30.24 kg/c3VmrpbNena HuffUhkipnEcniEcrjpj99-46-9922 14:44-0500Body aogsqs785.15 kgJames JcozynAyylXinesi89-92-0293 14:44-3271Aqreog222.9 Rebecca [facility] 07-01-2019 09:59-0500BMI (Body Mass Index)30.79 kg/k0Jhbkq [facility] 07-01-2019 09:59-0500Body .97 Mario BbliwjRcsyOajzbj78-28-4365 09:59-6678Urzeqz265.9 Rbeecca VltblsWpjhZlwxpn30-46-6869 11:30-0500BMI (Body Mass Index)30.79 kg/m2Ray [facility] Work Phone: 1(922) 122-617102-13-2018 11:30-2636Elbrla050.9 cmRjuanita [facility] Work Phone: 1(167) 752-168402-13-2018 11:30-9249Iamtux889.97 kgRay [facility] Work Phone: 1(716) 153-786508-15-2017 12:07-0400BMI (Body Mass Index)29.97 kg/m2 Ray [facility] Work Phone: 1(401) 478-590408-15-2017 12:07-5320Ngnxrm626.9 cmRjuanita [facility] Work Phone: 1(140) 359-704108-15-2017 12:07-2909Nuujby825.25 kgRay [facility] Work Phone: Encounters Encounter DateEncounter TypeCare ProviderFacilityStart: 04-19-2025 End: 34-16-8407juqxcpdrdyIoekcgqr Ball DO Work Phone: -[facility] ClinicStart: 04-19-2025 End: 65-19-8040Hcybpka encounter procedureBenjamin Ball DO-[facility] Work Phone: Start: 04-14-2025 End: 15-12-1706Yineufh encounter procedureStetomi Lubin [facility] Work Phone: [facility] [place] PodiatryComment on above:Dermatophytosis of nail (Primary Dx); Dystrophic nail; Pain around toenail, right foot; Pain around toenail, left footStart: 04-14-2025 End: 24-10-0957hncndwykmqWKEKAQ A RUSHERNot AvailableStart: 04-14-2025 End: 92-48-0829Ztjpbc flowsheetSteven A Rusher DPM Work Phone: [facility] [place] PodiatryStart: 04-14-2025 End: 86-99-6197Kpctfg flowsheetSteven A Rusher DPM Work Phone: [facility] PodiatryStart: 70-27-3479Dcg-patient / Non-visitBelenard [facility] Work Phone: Start: 04-09-2025 End: 26-42-2966feizirneawFanpenbt Ball DO Work Phone: -[facility]: 04-09-2025 End: 56-33-8497Aclxgko encounter procedureBesandrodarwin Mariscal DO-[facility] Work Phone: Start: 53-18-0628Hgq-patient / Non-visitCatkofi Berman CMA-[facility] Work Phone: Start: 59-99-8005Stu-patient / Non-visitPablito Hoffman MD-[facility] Work Phone: Start: 47-01-5034Ieh-patient / Non-visitPablito Hoffman MD-[facility] Work Phone: Start: 31-79-9452Ilo-patient / Non-visitBijal Najera MD-[facility] Work Phone: Start: 45-68-6371Axu-patient / Non-visitBijal Najera MD-[facility] Work Phone: Start: 42-84-0136Uhk-patient / Non-visitBijal Najera MD-[facility] Work Phone: start: 03-76-2774Htn-patient / Non-visitYehuda Willinghamcarolina [facility] Work Phone: Start: 26-78-3036sugffpiebnPZMJXIU MAJUMDAR [facility]art: 03-26-2025 End: 97-67-9488quwgqphzpfVHOXJWXKRM ISAKOVFacility:[facility] Hospitaltart: 03-25-2025 End: 84-14-4862Twskdx flowsheetSteven A Rusher DPM Work Phone: [facility] PodiatryStart: 03-25-2025 End: 42-47-5921Kugqko flowsheetSteven A Rusher DPM Work Phone: [facility] PodiatryStart: 03-25-2025 End: 85-64-6800insvxrgeowKDLHUN A RUSHERNot AvailableStart: 03-25-2025 End: 65-67-3000Cxwcty outpatient visit 15 minutesSteven A Rusher DPM Work Phone: [facility] PodiatryComment on above: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, stage 2 (CMS-HCC) (Primary Dx); Cellulitis of left foot; Pain in toe of left foot; Difficulty walkingStart: 03-24-2025 End: 40-61-9382gauhbmcljsFRZMEG NASEERFacility:[facility]tart: 03-24-2025 End: 28-36-4158ofdsunkswaYBZGXJ BEVERIDGEFacility:[facility] Start: 03-17-2025 End: 42-29-1039Jinyor flowsheetSteven A Rusher DPM Work Phone: [facility] PodiatryStart: 03-17-2025 End: 00-77-1687Awguqn flowsheetSteven A Rusher DPM Work Phone: [facility] PodiatryStart: 03-17-2025 End: 73-44-6231Ojhewz outpatient visit 15 minutesSteven A Rusher DPM Work Phone: NOKim[facility] PodiatryComment on above: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, stage 2 (CMS-HCC) (Primary Dx); Cellulitis of left foot; Pain in toe of left foot; Difficulty walkingStart: 03-17-2025 End: 78-28-6035eebnhmoaxgIASZJV A RUSHERNot AvailableStart: 03-16-2025 End: 46-57-6172vwpxqxhglnUKZQQO NASEERFacility:[facility]tart: 03-12-2025 End: 51-11-5302Jgmfmn flowsheetSteven A Rusher DPM Work Phone: [facility] PodiatryStart: 03-12-2025 End: 69-85-9577Sphlvb flowsheetSteven A Rusher DPM Work Phone: [facility] PodiatryStart: 03-12-2025 End: 11-88-8983ztofetmjnfREPWZC A RUSHERNot AvailableStart: 03-12-2025 End: 56-98-3642Gpptpp outpatient new 30 minutesSteven A Rusher DPM Work Phone: noKim[facility] PodiatryComment on above: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, stage 2 (CMS-HCC) (Primary Dx); Cellulitis of left foot; Pain in toe of left foot; Difficulty walkingStart: 03-12-2025 End: 82-31-0579wheiioiuonAHHRNT A RUSHERNot AvailableStart: 03-05-2025 End: 46-23-5808yedfcgbqoeCJECFSWHPU ISAKOVFacility:[facility] Start: 02-25-2025 End: 40-34-1256Nxaemkw encounter procedureZabrina Suarez MD Work Phone: [facility] HospitalComment on above:FLOYD (acute kidney injury) (Primary Dx); Screening for genitourinary condition; Elevated serum creatinine; Decreased GFR; Generalized edema; Pleural effusion, not elsewhere classifiedStart: 02-25-2025 End: 72-51-8244qldrchzguyGonhknAsia Suarez MD Work Phone: 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 1950tart: 02-11-2025 End: 74-59-8575rkwshtzeweWRDUNBIDIY ISAKOVFacility:[facility] Start: 02-02-2025 End: 53-41-4448luygtmywfeKCUMarnie COURTNEYPhillips Eye Institutecility:[facility] Start: 01-26-2025 End: 89-68-6390Bxogxbg encounter procedureVjuan francisco Hopper MD Work Phone: Jose Antonio Hopper MDComment on above:Metabolic encephalopathy (Primary Dx); Stage 3a chronic kidney disease (HCC); Primary hypertension; Lymphocytic colitis; Generalized edema; Orthostatic hypotension; Cramp and spasm; Urge incontinenceStart: 01-25-2025 End: 47-08-2444inzhhiwptwDVHOVNNSUE ISAKOVFacility:[facility] Start: 01-19-2025 End: 06-99-0750WdddkhAdrbpcdurt Isakov MD Work Phone: Jose Antonio Hopper MDStart: 01-12-2025 End: 71-78-9276SkuxsoPouwtqphzz Isakov MD Work Phone: Jose Antonio Hopper MDComment on above:Refill Request Start: 01-11-2025 End: 77-82-2982Lovrylz encounter procedureTriston Riggs MD Work Phone: Pulmonary MedicineComment on above:Pleural effusion (Primary Dx); Pleuritis; Pericardial effusion (noninflammatory) (HCC); History of pericarditis; Lymphocytic colitisStart: 01-11-2025 End: 78-46-6798tnpnhfhxdfBRTVZ GILLESPIEFacility:[facility]tart: 01-08-2025 End: 65-36-8347Gkthvdbzea hospital visit by physicianGeneral Keron Ahumada Mc Work Phone: RadiologyComment on above:Pleural effusion, not elsewhere classified [J90]Start: 01-08-2025 End: 92-04-0135pbfxaupyczRKIVY GILLESPIEFacility:[facility]tart: 12-22-2024 End: 47-75-9963Mievsqmeytcv consultation with Wolfgang Hooper APRN.CNP Work Phone: GastroenterologyStart: 12-22-2024 End: 16-67-5715ifdwvncwgtYkwsiMasoud Hooper APRN.CNP Work Phone: GastroenterologyComment on above:Elevated serum creatinine (Primary Dx); Elevated alkaline phosphatase levelStart: 12-16-2024 End: 41-78-8223qbtkysuxwhXJTJSUD SHARMAFacility:[facility]tart: 12-15-2024 End: 36-01-6003Miacvlc encounter procedureJose Antonio Hopper MD Work Phone: Jose Antonio oHpper MDComment on above:Mixed connective tissue disease (HCC) (Primary Dx); Urge incontinence; Hypokalemia; Recurrent 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; Muscle cramps; Hiatal herniaStart: 11-25-2024 End: 76-67-8396TfvkioFvfpwivapl Isakov MD Work Phone: Jose Antonio Hopper MDComment on above:Refill Request Start: 11-24-2024 End: 33-15-1694Hpsuic-up encounterZac Mendiola MD Work Phone: CardiologyStart: 11-23-2024 End: 86-27-2188Zihktknup Naya Flood MD, PhD Work Phone: oracic ClinicComment on above:Received Outside Medical RecordsStart: 11-23-2024 End: 26-93-3799Gslrnwz encounter procedureTriston Riggs MD Work Phone: Pulmonary MedicineComment on above:Pleural effusion (Primary Dx); Pleuritis; Pericardial effusion (noninflammatory) (HCC); Lymphocytic colitis; Other ascitesStart: 11-23-2024 End: 00-48-2024Pwjxrytisj hospital visit by physicianXr Chest Main U07Tofkkswiq Comment on above:Pleural effusion, not elsewhere classified [J90]Hepatomegaly [R16.0]Start: 11-23-2024 End: 42-97-1302qvbvqsllxqFIHVOCR PROVIDERFacility:[facility]tart: 11-20-2024 End: 02-57-1994Nohauq outpatient new 45 minutesZac Mendiola MD Work Phone: CardiologyComment on above:Extremity cyanosis (Primary Dx)Start: 11-20-2024 End: 53-67-9666wsghptfpwlDVMUOEH SHARMAFacility:[facility]tart: 11-19-2024 End: 22-22-2890uvhkuddfppIPMAV GILLESPIEFacility:[facility] Administrationtart: 11-19-2024 End: 04-69-8113Nzbpsqf encounter procedureTriston Riggs MD Work Phone: Pulmonary MedicineComment on above:Pleural effusion (Primary Dx)Start: 11-19-2024 End: 30-69-8053fsruxlrdpyCCUDR GILLESPIEFacility:[facility]tart: 11-19-2024 End: 40-91-9358Vlndqkjwon hospital visit by physicianXr Chest Main Oh7Hhqxxozss Comment on above:Pleural effusion [J90]Start: 11-17-2024 End: 17-37-8955Wbaiejtho encounterMya (Pss) DozierPulmonary MedicineComment on above:Patient QuestionStart: 11-17-2024 End: 33-18-0668sequynrialUTYMTUJWMT ISAKOVFacility:[facility] Start: 11-13-2024 End: 16-61-4622Trgifse encounter procedureJose Antonio Hopper MD Work Phone: Jose Antonio Hopper MDComment on above:Anasarca (Primary Dx); Recurrent 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; Hepatomegaly; Hiatal hernia; Chronic gastritis without bleeding, unspecified gastritis type; HypomagnesemiaStart: 11-12-2024 End: 47-15-3756Itonsvkuo department patient visitBENJAMIN E BALL Facility[facility]: 11-05-2024 End: 82-45-4851lilaqssjgnUCUWVBMD E BALLFacility:[facility]tart: 43-32-2629agiafelktmUSJBUDDD E BALLFacility:[facility]tart: 11-03-2024 End: 00-28-8590Pstmfu-up encounterTiffannorris Ly APRN.SET UP MECHANIC AUTOMATIC LINE Work Phone: GastroenterologyStart: 10-31-2024 End: 04-15-9332Msjtyl-up encounterTiffannorris Ly APRN.SET UP MECHANIC AUTOMATIC LINE Work Phone: ScstroenterologyStart: 10-27-2024 End: 61-74-2104Ouxpnp OnlyDelena R Cleadventhealth murray MAPulmonary MedicineComment on above: Pleural effusion (Primary Dx)Start: 10-23-2024 End: 96-42-7279Ftzfecfrv Naya Flood MD, PhD Work Phone: Thoracic ClinicComment on above:Received Outside Medical RecordsStart: 10-23-2024 End: 84-55-7030Veeaqypgrx hospital visit by physicianUltra [facility] Work Phone: [facility] Radiology UltrasoundComment on above: Elevated alkaline phosphatase level [R74.8]Start: 10-23-2024 End: 56-82-2182igdokeykoyTSKAPIMR E BALLFacility:[facility]tart: 10-20-2024 End: 43-34-0279Jfwcof-up encounterTiffannorris Ly APRN.SET UP MECHANIC AUTOMATIC LINE Work Phone: [facility] hospitalologyStart: 10-19-2024 End: 79-15-1497VpgxwkBhhoqysqsq Isakov MD Work Phone: Jose Antonio Hopper MDComment on above:Refill Request Start: 10-15-2024 End: 92-89-7957Wsvncn-up encounterTifgriffin Ly APRN.CNP Work Phone: GastroenterologyStart: 10-15-2024 End: 39-76-9073Rzjusil encounter procedureZabrina Suarez MD Work Phone: [facility] HospitalComment on above:FLOYD (acute kidney injury) (Primary Dx); Elevated BUN; Elevated serum creatinine; Decreased GFR; Lymphocytic colitis; Pleural effusion, not elsewhere classified; Generalized edemaStart: 10-15-2024 End: 07-11-9298glbetufbhdIqnool J Augustine MD Work Phone: [facility] HospitalComment on above:Serositis (HCC) (Primary Dx)Start: 10-14-2024 End: 03-29-0775feaoehmtihMARABPJ JARMANFacility:[facility]tart: 10-14-2024 End: 41-35-2690oaibglbtfuPVUFLDSP E BALLFacility:[facility]tart: 10-14-2024 End: 11-91-6289Pkleftr encounter procedureTifgriffin Ly APRN.CNP Work Phone: [facility] hospitalologyComment on above:Elevated BUN (Primary Dx); Elevated serum creatinine; Decreased GFR; Elevated alkaline phosphatase levelPleural effusion (Primary Dx)Start: 10-14-2024 End: 09-22-4027rieevkigufNWUBZCGBR CLEMENTFacility:[facility] Start: 76-39-6603eeffpxssvaRDSRBHV MAJUMDARFacility:[facility] Start: 10-13-2024 End: 80-20-2877Jjcizfeltz hospital visit by physicianIgorral Keron Ahumada Mc Work Phone: RadiologyComment on above:Cough, unspecified type [R05.9]Start: 10-02-2024 End: 51-77-2051Qmzef abstractGabby Contreras PA-C Work Phone: Pulmonary MedicineStart: 10-02-2024 End: 33-80-0306Wmclplexb encounterAlicereynaldo Ivey HUCAdmittingComment on above: Appointment ConfirmationStart: 10-02-2024 End: 95-93-8983cqxuigjxygQtpcdz Naseer MD Work Phone: GastroenterologyComment on above:Willie Raymundo 1950 Willie Raymundo [id number]: 09-25-2024 End: 26-79-8187ywmnfezxeiYJXAAD HELFANDFacility:[facility] HospitalStart: 09-25-2024 End: 11-82-3190Szerobdmwn hospital visit by Luther Dennis MD Work Phone: GastroenterologyComment on above:Esophageal dysphagia [R13.19]Start: 09-23-2024 End: 65-25-7651Gdspdwcjz encounterSezio Flood MD, PhD Work Phone: Thoracic ClinicComment on above:Received Outside Medical RecordsStart: 09-18-2024 End: 34-60-3263jxrepwvqggOlwks Madsen RNGastroenterologyStart: 09-14-2024 End: 31-16-0591Yidooflmn encounterMya (Pss) DozierPulmonary MedicineComment on above:Patient UpdateStart: 09-11-2024 End: 20-46-9399lvbepgmyomFJBYJOUTJN ISAKOVFacility:[facility] Start: 09-11-2024 End: 89-24-4414turqshdhruYbxjbpinvKindred Healthcare Work Phone: Start: 09-11-2024 End: 64-01-5540Mlbfjog encounter procedureFirsthealth [facility] Phys[facility] GroupHolzer Hospital Work Phone: Start: 09-08-2024 End: 00-93-0183cxdmrxyhffXMDLRJQ ASHTONFacility:[facility]tart: 09-04-2024 End: 24-59-6591Epkezvbup encounterDeitre Angel CTHOSP MAIN M041Mdttx: 09-04-2024 End: 52-10-6065Zkjsxvm encounter procedureJose Antonio Hopper MD Work Phone: Jose Antonio Hopper MDComment on above:Recurrent 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 (Primary Dx); Hypokalemia; Lymphocytic colitis; Anemia, unspecified type; Chronic insomniaStart: 09-04-2024 End: 91-75-7909cekzwlscnqSHJLUX CICENIAFacility:[facility]tart: 09-03-2024 End: 69-71-4048ubliiflstiPAMRWGWZHY ISAKOVFacility:[facility] Start: 87-16-7092Zcj-patient / Non-visitFirsthealth [facility] Phys[facility] Work Phone: Start: 09-02-2024 End: 68-03-6196Kbodblhgb encounterCarol Lior RUTH Work Phone: admittingComment on above:Post Dc Program Call - Needs AttnAppointment (Thoracentesis)Start: 77-29-9182Fah-patient / Non-visit [facility] Work Phone: Start: 09-01-2024 End: 28-20-1813Nkimfm OnlyJose Antonio Hopper MD Work Phone: Jose Antonio Hopper MDComment on above:Recurrent 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 (Primary Dx)Start: 61-18-4435Ooq-patient / Non-visitFirsthealth [facility] Work Phone: Start: 41-84-9509Bib-patient / Non-visitFirsthealth [facility] Work Phone: Start: 52-12-9333Ozn-patient / Non-visitFirsthealth [facility] Phys[facility] Work Phone: Start: 08-28-2024 End: 81-53-5792Pyxzjl Jesus Hopper MD Work Phone: Jose Antonio Hopper MDComment on above:Recurrent 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 (Primary Dx)Start: 08-27-2024 End: 54-75-1057Dqbjog flowsheetEmruel Bynum MD Work Phone: noms SWS DERMStart: 08-27-2024 End: 78-55-3539Hevfqt flowsheetEmruel Bynum MD Work Phone: noms SWS DERMStart: 08-27-2024 End: 90-34-0342Elyxdx outpatient visit 15 minutesEmruel Bynum MD Work Phone: noms SWS DERMComment on above:Seborrheic keratosis (Primary Dx); Actinic keratosis; Stasis dermatitis of both legs; LentiginesStart: 08-27-2024 End: 33-22-5931ykekhvpdzyQWTHT Yanira PETITTINot AvailableStart: 08-26-2024 End: 94-17-2404Nrgeeu-up encounterSue Murillo MD Work Phone: GastroenterologyStart: 15-94-9266Tgu-patient / Non-visitFirhospital corporation of america Physician GroupWest [facility] Work Phone: Start: 08-24-2024 End: 30-59-0606jcfxgnplurOHJHQNABFG ISAKOVFacility:[facility] Start: 08-24-2024 End: 37-34-9051Fdtqfv outpatient visit 25 minutesSue Murillo MD Work Phone: GastroenterologyComment on above:Lymphocytic colitis (Primary Dx); Esophageal dysphagiaStart: 08-24-2024 End: 98-01-3880gnphwybtjmPSFBTC NASEERFacility:[facility]tart: 08-21-2024 End: 54-68-0113Sxjzcbndf encounterCarol Lior MARREROSET UP MECHANIC AUTOMATIC LINE Work Phone: cardiologyComment on above:Post Dc Program Call - Needs AttnRefill RequestStart: 08-18-2024 End: 78-05-4873hkkgyvqytnHULQA WEGASFacility:[facility]tart: 08-18-2024 End: 68-93-1798Tgmgyag encounter procedureCarol Lior 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.SET UP MECHANIC AUTOMATIC LINE Work Phone: oracic ClinicComment on above:Pleural effusion (Primary Dx)Start: 76-74-1953Efe-patient / Non-visitFirelands Physician [facility]- [facility] Work Phone: Start: 08-13-2024 End: 61-83-1638edqyuctsxxUABMG GILLESPIEFacility:[facility]tart: 08-13-2024 End: 77-54-5815Zixdhbbssr hospital visit by physicianSouthpointe Hospital LorainRadiology Comment on above:Pleural effusion [J90]Start: 08-12-2024 End: 66-40-7879gxnwcksbrhMLMKKNIS Niecy BAJWANot AvailableStart: 08-12-2024 End: 23-84-9512Regayw flowsheetJoivyhan Niecy Zahler DO Work Phone: noMS NB OPHTStart: 08-12-2024 End: 33-69-4710Wnhzlk flowsheetJonathan D Zahler DO Work Phone: noms NB OPHTStart: 08-12-2024 End: 05-59-4840Djvfijkup encounterSdarrion Contreras PA-C Work Phone: Pulmonary MedicineComment on above:Patient Update Patient QuestionPatient RequestStart: 08-10-2024 End: 72-06-4211Whxifrkdi encounterMya (Pss) DozierPulmonary MedicineComment on above:Patient QuestionStart: 08-04-2024 End: 87-34-0060Auemndhkj encounterSezio Flood MD, PhD Work Phone: oracic ClinicComment on above:Received Outside Medical RecordsStart: 08-03-2024 End: 79-51-7786Ygpzdofnn encounterMya (Pss) DozierPulmonary MedicineComment on above:Patient UpdateStart: 07-29-2024 End: 53-14-9557Cfqxwt Jesus Hopper MD Work Phone: Vjuan francisco Hopper MDComment on above:Pleural effusion (Primary Dx)Start: 30-32-8781Jql-patient / Non-visitFireland Physician GroupLocated Within [facility] Work Phone: Start: 07-24-2024 End: 57-33-8133Hvizvc Jesus Hopper MD Work Phone: Jose Antonio Hopper MDComment on above:Fatigue, unspecified type (Primary Dx)Start: 07-21-2024 End: 51-31-4490Nbpwowa encounter procedureJose Antonio Hopper MD Work Phone: Vjuan francisco Hopper MDComment on above:Pleural effusion (Primary Dx); Muscle cramps; Anasarca; Hypomagnesemia; Lymphocytic colitisStart: 45-14-7667Tco-patient / Non-visitFirhospital corporation of america Physician GroupWest [facility] Work Phone: Start: 07-20-2024 End: 43-24-8939xitqxwmgwzKTHLO GILLESPIEFacility:[facility]tart: 07-20-2024 End: 04-30-8845Jvsvljd encounter procedureTriston Riggs MD Work Phone: Pulmonary MedicineComment on above:Pleural effusion (Primary Dx); Pleuritis; Pericardial effusion (noninflammatory); Chronic coughStart: 07-20-2024 End: 79-78-0270xwirkwhzetHWOJLSBIK CLEMICHELLEFacility:[facility] Start: 07-20-2024 End: 22-59-8855Fmnkkprlba hospital visit by physicianXr Chest Main Rf2Mgpevabmh Comment on above:Pleural effusion [J90]Start: 87-18-6307alzjhgoupgABJQ REGALA Facility:[facility]art: 07-17-2024 End: 75-49-1463Zbqvq abstractGabby Contreras PA-C Work Phone: Pulmonary MedicineStart: 07-16-2024 End: 09-47-7684Rqspenobe encounterTriston Riggs MD Work Phone: Pulmonary MedicineComment on above:OrdersStart: 07-16-2024 End: 41-03-1424llcnfxwzbfDZYXD GILLESPIEFacility:[facility]tart: 07-14-2024 End: 60-85-8865Qzhfldx encounter procedureFirhospital corporation of america Physician Group-[facility] Work Phone: Start: 07-10-2024 End: 97-72-8713OvaspkOfjpeNayana Edouard DO Work Phone: [facility] SurgeonsStart: 07-08-2024 End: 42-09-0461Dyqlu abstractGabby Contreras PA-C Work Phone: Pulmonary MedicineStart: 06-29-2024 End: 71-28-1349Kuezarlfk encounterDevanna Ortiz CTSP MAIN V969Xqhscrm on above:AppointmentStart: 06-22-2024 End: 72-17-3787Zjtqel OnlyStammy Contreras PA-C Work Phone: Pulmonary MedicineComment on above:Pleural effusion (Primary Dx)Pleural effusion (Primary Dx); Pleuritis; Lymphocytic colitis; Pericardial effusion (noninflammatory); Interstitial pulmonary disease (HCC)Start: 06-12-2024 End: 77-38-6171Usxzekm encounter procedureJose Antonio Hopper MD Work Phone: Jose Antonio Hopper MDComment on above:Recurrent 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 (Primary Dx); Primary hypertension; Lymphocytic colitis; Elevated C-reactive protein (CRP); Exocrine pancreatic insufficiency; Hypokalemia; AnasarcaStart: 06-01-2024 End: 06-16-5971xjeiyzyxknHUFUVK GONZALEZ ORTAFacility:[facility] Start: 06-01-2024 End: 63-77-2724Mffuck outpatient visit 25 minutesSteffen Villa MD Work Phone: RheumatologyComment on above:Pleural effusion (Primary Dx); Elevated sed rate; Elevated C-reactive protein (CRP)Start: 05-29-2024 End: 60-73-3843osbzeadzymCNQBHVSD E BALLFacility:[facility]tart: 05-26-2024 End: 91-43-7188dipmxkjmesCROYRJ NASEERFacility:[facility]tart: 05-26-2024 End: 99-77-8993Mdwrkn outpatient visit 25 minutesSue Murillo MD Work Phone: GastroenterologyComment on above:Lymphocytic colitis (Primary Dx)Start: 05-25-2024 End: 54-53-7491Qlwnanqcq encounterTeasia Berny Longoria [facility] TULSAAdmittingStart: 05-18-2024 End: 31-44-6481nemuaujsmlBRMVDJZ MAJUMDARFacility:[facility] Start: 05-18-2024 End: 97-37-2845Puotoexdhm hospital visit by physicianXr [facility] Work Phone: RadiologyComment on above:Pleural effusion [J90]Start: 05-18-2024 End: 19-46-9976qwuffzkhcbHYYRCEP MAJUMDARFacility:[facility] Start: 05-18-2024 End: 31-53-9405Rvjpmog encounter procedureLouise Cesar MD Work Phone: Pulmonary MedicineComment on above:Pleural effusion (Primary Dx); Chronic cough; Lung nodule; Lymphocytic colitisStart: 05-13-2024 End: 01-82-0676Xaulvyq encounter procedureJose Antonio Hopper MD Work Phone: Jose Antonio Hopper MDComment on above:Recurrent 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 (Primary Dx); Anasarca; Chronic cough; Primary hypertensionStart: 05-11-2024 End: 42-30-7735takrjiisdvEmyyim Naseer MD Work Phone: GastroenterologyComment on above:Willie Johnson: 05-07-2024 End: 52-36-9254phuqpxqxbtJppocs Naseer MD Work Phone: GastroenterologyComment on above:Willie Johnson: 05-05-2024 End: 69-50-2260lkhbbxcwlwTmvzsr Naseer MD Work Phone: GastroenterologyComment on above:Willie Johnson: 04-30-2024 End: 50-53-9776Ajfbby Galileo Murillo MD Work Phone: [facility] - ENDOStart: 04-28-2024 ambulatoryVASILIY OLARFacility:[facility] Hospitaltart: 04-28-2024 End: 31-51-8385Hdclxucqpe hospital visit by Marisol Ponce MD Work Phone: [facility] - ENDOComment on above: Diarrhea, unspecified type [R19.7]Start: 73-07-0280mryhxfilldERZRK E ARKOUSH [facility]: 04-22-2024 End: 87-77-6685btlnfkjxbvKRAFNB NASEERFacility:[facility]tart: 04-22-2024 End: 98-80-8562Ahgvitlyis [facility] visit by physicianValerie [facility] (I-Stat)CT Scan [place] FHCComment on above:Diarrhea, unspecified type [R19.7]Start: 04-20-2024 End: 43-87-8972qqcxpgmwkkEYVDJD NASEERFacility:[facility]tart: 04-20-2024 End: 85-68-2734Svexvd outpatient makayla 45 Ernesto Murillo MD Work Phone: GastroenterologyComment on above:Abdominal pain, unspecified abdominal location (Primary Dx); Diarrhea, unspecified typeStart: 04-20-2024 End: 74-63-3340nqdvbzeleiQBWHWQ NASEERFacility:[facility] HospitalStart: 03-30-2024 End: 40-23-3808Ttewfx outpatient new 60 Bal Villa MD Work Phone: RheumatologyComment on above:Pleural effusion (Primary Dx); Elevated sed rate; Elevated C-reactive protein (CRP); Diarrhea, unspecified typeStart: 65-70-8874qzskxkihxjRUWXJRK MAJUMDAR [facility]: 03-26-2024 End: 90-73-7430Olhfhunjpf hospital visit by [facility] Work Phone: Cardiovascular TestingComment on above:Pericarditis, unspecified chronicity, unspecified type [I31.9]Start: 98-10-9977ztemalhyre LOUISE SMITHRFacility:[place] HospitalStart: 03-17-2024 End: 43-64-6206Qnbnqdtoru hospital visit by physicianRadio Ct Scan [place] Work Phone: RadiologyComment on above:Interstitial pulmonary disease (HCC) [J84.9]Start: 03-17-2024 End: 15-67-2418igpnprutxuBQDHTHC MAJUMDARPulmonary LabComment on above: SpirometryStart: 03-17-2024 End: 66-46-3028Atoilhq encounter procedureRuma Oshea PA-C Work Phone: Thoracic SurgeryComment on above:Pleural effusion (Primary Dx)Start: 03-17-2024 End: 28-47-4018Itibaxz encounter procedureLouise Cesar MD Work Phone: PULMONOLOGY [facility]ITALOR HOSPITALComment on above:Chronic cough (Primary Dx); Pleural effusion; Pleuritis; Interstitial pulmonary disease (HCC); Pericardial effusion (noninflammatory); Pericarditis, unspecified chronicity, unspecified typeStart: 03-17-2024 End: 14-88-7235Mdjzvibjut hospital visit by physicianXr [place] [facility] 1XRAY / RADIOLOGY [facility]OSPITALComment on above:Chronic bronchitis, unspecified chronic bronchitis type (HCC) [J42]Start: 03-17-2024 End: 92-15-2007Motbbfs encounter procedurePulm Fct Lab1 - MentorPULMONOLOGY LAB [facility]OS[facility]ITALStart: 03-17-2024 End: 92-46-9863uclejevgrnNRTNIND MAJUMDARPULMONOLOGY LAB [facility]ILLE HOSPITALComment on above:SpirometryStart: 03-03-2024 End: 03-95-7328Dtcpcegyh encounterSezio Flood MD, PhD Work Phone: CardiologyComment on above:Post Dc Program Call - Needs AttnPatient UpdateStart: 02-21-2024 End: 38-31-1940Rftmkmiif encounterSezio Flood MD, PhD Work Phone: oracic ClinicComment on above:Patient Update (Pleurex output )Start: 02-12-2024 End: 79-92-8365Xvspnki encounter Ellie Dial MD Work Phone: Yehuda Dial MDComment on above:Recurrent 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 (Primary Dx); History of pericarditisStart: 02-12-2024 End: 10-73-0316Ogtbkbf encounter procedureJose Antonio Hopper MD Work Phone: Jose Antonio Hopper MDComment on above:Recurrent 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 (Primary Dx); Primary hypertension; Pleural effusion; Chronic cough; Anemia, unspecified type; HypomagnesemiaStart: 02-04-2024 End: 51-05-4149Ozicpet encounter procedureDelaware Psychiatric Center FARAZ Work Phone: oracic SurgeryComment on above:Pleural effusion (Primary Dx); Elevated sed rate; Elevated C-reactive protein (CRP)Start: 02-04-2024 End: 36-94-8872fmabqstkriUKYKZVAS WILTSHIREFacility:[facility] HospitalStart: 02-04-2024 End: 82-80-0563Lnlwdihjha hospital visit by physicianRolan [facility] MCComment on above:Pleural effusion [J90]Start: 01-28-2024 End: 67-84-5297FmjzbpBlanca Huff DO Work Phone: [facility]opedic SurgeonsStart: 01-22-2024 Admission to same day surgery [facility] 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.SET UP MECHANIC AUTOMATIC LINE Work Phone: oracic SurgeryComment on above:Willie Raymundo [facility] HospitalStart: 94-70-9350jpanmnmutuGsynuwmw [place] 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.SET UP MECHANIC AUTOMATIC LINE Work Phone: oracic SurgeryStart: 87-18-3846Czbtgwlwo encounter Ronaldo Flood MD, PhD Work Phone: oracic ClinicComment on above:Received Outside Medical RecordsStart: 01-15-2024 End: 28-15-0886Arlzxqs encounter Kelly Hopper MD Work Phone: Jose Antonio Hopper MDComment on above:Recurrent pleural effusion on right (Primary Dx); Chronic cough; Elevated C-reactive protein (CRP); Elevated sedimentation rateStart: 01-06-2024 End: 40-53-7968Idsjvsn encounter Stella Oshea PA-C Work Phone: oracic SurgeryComment on above:Pleural effusion (Primary Dx)Recurrent pleural effusion (Primary Dx); History of pericarditis; Chronic coughStart: 01-06-2024 End: 31-63-8684macxzybiyjEOHMZP ZAVARELLAFacility:[facility] Childrentart: 01-06-2024 End: 95-63-7942Txlzkuwlrl hospital visit by physicianXr [facility] HOSPComment on above:Recurrent pleural effusion on right [J90] Start: 12-20-2023 End: 29-91-7023Mojzepbdsh and management of inpatientYEHUDA DIAL Facility:[facility] Childrentart: 12-20-2023 End: 28-89-2769Nbzdwnq encounter procedureCarson Tahoe HealthN.SET UP MECHANIC AUTOMATIC LINE Work Phone: [facility] SurgeryComment on above:Follow-up examination after lung surgery (Primary Dx); Pleural effusion; Bilateral lower extremity edema; Anasarca; Nausea vomiting and diarrheaStart: 12-20-2023 End: 52-15-6277yjurboksyhKFDGJHPOSt. Anne Hospitalcilgalion hospital:[facility] Childrentart: 12-20-2023 End: 73-65-3181Xfkpmsfmwz hospital visit by physicianXr [facility] TahlequahComment on above:Pleural effusion [J90]Start: 12-17-2023 Telephone encounterSezio Flood MD, PhD Work Phone: CardiologyStart: 12-13-2023 End: 50-03-1673Xjjyzcj encounter procedureDelaware Psychiatric Center 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.SET UP MECHANIC AUTOMATIC LINE Work Phone: oracic SurgeryComment on above:Pleural effusion (Primary Dx)Start: 12-13-2023 End: 11-60-5696chzphnlclkUNCRUUHPSt. Anne Hospitalcility:[facility] Childrentart: 12-13-2023 End: 71-15-3772Jkwjgkthhn hospital visit by physicianXr [facility] HOSPComment on above:Pleural effusion [J90]Start: 12-03-2023 Telephone encounterDelaware Psychiatric Center 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.SET UP MECHANIC AUTOMATIC LINE Work Phone: oracic ClinicComment on above:Schedule and Confirm AppointmentsStart: 12-03-2023 End: 18-39-2675Irjdbzu encounter [facility] 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.SET UP MECHANIC AUTOMATIC LINE Work Phone: [facility] SurgeryComment on above:Follow-up examination after lung surgery (Primary Dx); Pleural effusionStart: 12-03-2023 End: 43-30-8226gsonrfcedsFNAYSHRNSt. Anne Hospitalcilgalion hospital:[facility] Childrentart: 12-03-2023 End: 45-65-5638Pmanrqueoc hospital visit by physicianXr [facility] TahlequahComment on above:Follow-up exam [Z09]Start: 11-29-2023 End: 59-89-4329Cpranr OnlyDelaware Psychiatric Center 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.SET UP MECHANIC AUTOMATIC LINE Work Phone: oracic ClinicComment on above:Follow-up exam (Primary Dx)Surgery follow-up [Z09]Follow-up examination after lung surgery (Primary Dx); Pleural effusionStart: 04-19-4191Ibaxluurx encounterSezio Flood MD, PhD Work Phone: oracic SurgeryStart: 11-12-2023 End: 48-98-4762Wbswreoksi hospital visit by [place] MD Work Phone: admittingComment on above: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] Start: 11-12-2023 End: 20-40-2470Antebgp encounter procedureSezio Flood MD, PhD Work Phone: [facility] ClinicComment on above:Pleural effusion (Primary Dx)Start: 11-12-2023 End: 57-93-7745Zmkrdjv encounter statusCard InjectionSumma Health Barberton Campustart: 11-12-2023 End: 24-30-9374Gomeudwrac hospital visit by physicianCard InjectionMolecular ImagingStart: 11-12-2023 End: 27-04-3443Ekzoygz encounter statusXr J1 Work Phone: [facility] Campustart: 11-12-2023 End: 61-93-7793Bompysinla hospital visit by physicianXr Chest Main J1 Work Phone: RadiologyComment on above:Pleural effusion [J90]Start: 54-30-2727Ckkdbncvm encounterSezio Flood MD, PhD Work Phone: oracic ClinicComment on above:Patient Question (pt not)Start: 32-35-9589Wvawbqtgm to same day surgery centerSezio Flood MD, PhD Work Phone: [facility] ClinicComment on above:Schedule Surgery (Right VATS biopsy/ pleurodesis cs=2.5 los =2-3)Start: 62-16-4409hfinluapbj Ronaldo Flood MD, PhD Work Phone: [facility] ClinicStart: 77-19-3311Axoctss encounter statusRonaldo Flood MD, PhD Work Phone: [facility] Campustart: 10-24-2023 End: 04-45-9308Mtlbrbr encounter procedureSezio Flood MD, PhD Work Phone: oracic ClinicComment on above:Obesity, Class I, BMI 30-34.9 (Primary Dx); Pleural effusionStart: 75-98-2404Hpfhzqism encounterSezio Flood MD, PhD Work Phone: oracic ClinicComment on above:External Referrals/resourcesStart: 43-70-5325Dbivxapdr encounterNo Pcp APRNReferring PhysicianComment on above:External Referrals/resourcesStart: 10-02-2023 End: 64-05-3813jgcabsmdeiAV Sintia Clemente Work Phone: [facility] Work Phone: Start: 10-02-2023 End: 77-04-3877Durgatuy ReferredDO Sintia Blue Work Phone: [facility]-LAB Path Spec Mig[facility]alia HospStart: 10-01-2023 End: 36-80-3319yodrmsoxeyOwhhvd P SamsaFacility:[facility] Centertart: 52-17-1680Mvb-patient / Non-visitDO Sintiacandida Clemente Work Phone: [facility] Work Phone: Start: 36-18-2089Prm-patient / Non-visitDO Sintiacandida Mcarthursa Work Phone: [facility] Work Phone: Start: 09-05-2023 End: 70-28-2451zusyiyrzyfSmrafd P SamsaFacility:[facility] Centertart: 09-05-2023 End: 79-00-0874ccanugoodiDA Sintia Mcarthursa Work Phone: [facility] Work Phone: Start: 09-05-2023 End: 99-18-9218Vxapoyze ReferredDO Sintia Clemente Work Phone: [facility]-LAB Path Spec Migdalia HospStart: 09-04-2023 End: 02-31-2686grgztryfdbIxtgln P BrynFacility:[facility] Centertart: 09-04-2023 End: 69-04-8884tvnnyvdiztRN Sintia Clemente Work Phone: [facility] Work Phone: Start: 09-04-2023 End: 86-47-6751Fvddgihs ReferredDO Sintia Clemente Work Phone: [facility]-LAB Path Spec Jackson HospStart: 76-88-2132Jvw-patient / Non-visitDO Sintia Clemente Work Phone: [facility] Work Phone: Start: 87-20-9533Bqo-patient / Non-visitDO Sintia Clemente Work Phone: [facility] Work Phone: Start: 56-08-4080Hmx-patient / Non-visitDO Sintia Clemenet Work Phone: [facility] Work Phone: Start: 13-41-7221Sgg-patient / Non-visitDO Sintiacandida Clemente Work Phone: [facility] Work Phone: Start: 28-29-0497Nky-patient / Non-visitDO Sintiacandida Mcarthursa Work Phone: [facility] Work Phone: Start: 08-13-2023 End: 15-77-9721Hsjjhhg encounter procedureDO Sintia Clemente Work Phone: [facility] Work Phone: start: 07-23-2023 End: 46-50-4800hjfqugviptHniganfb Ball Other noXlumena Other Start: 67-99-2977Mjtbetd encounter procedureBenjamin BallFPG [facility] ClinicStart: 07-10-2023 End: 50-57-1177oyqrzupygePrnynmcq Ball Other noXlumena Other Start: 08-15-7412Rkbxxrkbo encounterBenjamin BallFPG [facility] ClinicStart: 07-08-2023 End: 06-69-9199qhmsyicsdyLebdkckk Ball Other noXlumena Other Start: 31-66-4777Biramyrkz encounterBenjamin BallFPG [facility] ClinicStart: 07-07-2023 End: 63-94-3841ihffewdjqbMywwshjo Ball Other noXlumena Other Start: 42-21-6170Jcosicinu encounterBenjamin BallFPG [facility] Medical ClinicStart: 06-25-2023 End: 80-10-4892Rhcfch [facility] Orthopedic SurgeonsComment on above:Status post total knee replacement, bilateral (Primary Dx)Start: 28-51-3401Cgznrepzr encounterBenjamin BallFPG [facility] ClinicStart: 05-07-2023 End: 24-49-0779bxlfuipwohOxpbtprz Ball Other noXlumena Other Start: 79-65-0543Rwwzkhjyg encounterBenjamin BallFP[facility] ClinicStart: 04-24-2023 End: 97-16-5293gjjkvqvqmiExcwjkdi Ball Other noXlumena Other Start: 94-81-7994Alfhenigo encounterBenjamin BallFP[facility] ClinicStart: 04-22-2023 End: 51-45-2623drpurzdsvmUfxozpnz Ball Other noXlumena Other Start: 70-97-7481Omnmphq encounter procedureBenjamin BallFPG [facility] ClinicStart: 04-19-2023 End: 05-56-6520curjtshyhdXhuvduno Ball Other noXlumena Other Start: 88-62-6992Fmknioiqc encounterBenjamin BallFP[facility] ClinicStart: 04-17-2023 End: 47-52-5490bylziploceLnqbyvrm Ball Other noXlumena Other Start: 12-91-0829Hpmwawfay encounterBenjamin BallNOYG [facility] ClinicStart: 02-11-2023 End: 53-27-3157Pyzk/qhp telephone evaluation 5-10 Mike Edouard DO Work Phone: [facility] Orthopedic SurgeonsComment on above:Hallux rigidus of left foot (Primary Dx)Start: 02-11-2023 End: 20-03-4668FnmtidCerxvl [facility] Orthopedic SurgeonsStart: 01-16-2023 End: 20-13-0662hpztqrcazvTWAQWEAU E [facility] AmbulatoryStart: 01-16-2023 End: 40-32-8556Rraiej outpatient visit 10 Stephen Huff DO Work Phone: [facility] Orthopedic SurgeonsComment on above:Status post total knee replacement, bilateral (Primary Dx)Start: 01-10-2023 End: 24-41-2383gfyfjadxzjUgmggrlh Ball Other noXlumena Other Start: 80-76-3166Iegheyr encounter procedureBenjamin BallFP[facility] ClinicStart: 11-19-2022 End: 18-00-3381bzyzqkhwlkBZXNMALB E [facility] AmbulatoryStart: 11-19-2022 End: 21-93-1090Vkivrv outpatient visit 15 minutesMargie Edouard DO Work Phone: [facility] Orthopedic SurgeonsComment on above:Hallux rigidus of left foot (Primary Dx)Start: 10-08-2022 End: 78-99-4916nwtljurwltWGXPPALQ E [facility] AmbulatoryStart: 10-08-2022 End: 03-05-0371Rsviui outpatient visit 5 minutesGrecia Faith PA-C Work Phone: [facility] Orthopedic SurgeonsComment on above:Hallux rigidus of left foot (Primary Dx); Metatarsalgia, left footStart: 36-37-3046PukvwrCijpaw [facility] Orthopedic SurgeonsStart: 08-28-2022 End: 79-75-5056YquuqaJlgzxx [facility] Orthopedic SurgeonsStart: 08-28-2022 End: 77-45-3543Fkmkhg outpatient new 30 minutesMargie Edouard DO Work Phone: [facility] Orthopedic SurgeonsComment on above:Hallux rigidus of left foot (Primary Dx); Eaton's metatarsalgia, leftStart: 03-19-2022 End: 22-04-5187xwmdzjmglrYP NONE LISTED REQUESTFacility:J8Zzozv: 08-11-2021 Nallely Huff DO Work Phone: [facility] Orthopedic SurgeonsComment on above:Status post total knee replacement, bilateral (Primary Dx)Start: 08-11-2020 End: 48-67-8728Ylmawi ToroSelect Specialty Hospitalesther Todd Work Phone: [facility] Start: 07-20-2020 End: 64-57-6680Fdovuk outpatient visit 10 minutesNena Huff Work Phone: [facility] Orthopedic SurgeonsComment on above:Status post total knee replacement, bilateral (Primary Dx)Start: 07-01-2019 End: 44-87-4663Zjovsa outpatient visit 10 minutesNena PembertonFlorence Huff Work Phone: [facility] Orthopedic SurgeonsComment on above:Status post total knee replacement, bilateral (Primary Dx)Start: 07-30-2017 Office/outpatient visit, est, level 3Ray Stew Pridealtonbruna Work Phone: [facility] Orthopedic SurgeonsStart: 01-29-2017 End: 69-74-0106Mzhmph outpatient visit 15 minutesRay Stew Delgadocrystal Work Phone: [facility] Orthopedic SurgeonsComment on above:Primary osteoarthritis of right knee (Primary Dx);Status post total right knee replacement Procedures DateProcedureProcedure DetailPerforming ClinicianStart: 20-78-4283Skwic foot complete minimum 3 viewsStjuancarlos Lubin DPM Work Phone: Start: 73-05-8272Evjdd dip stick/tablet rgnt auto w/o microscopyBulk Order ProviderStart: 89-91-5523Oxk-scan artl krystal abdl/pel/scrot&/rpr orgn comMarlyn Hooper 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.SET UP MECH[employer]OMAT[employer] LINE Work Phone: Start: 62-70-7180ZH ABD LIVER VASCULARMarlyn Hooper 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.SET UP MECH[employer]IC [employer]OMATIC LINE Work Phone: Start: 73-08-8454Ajdduxwgyp exam chest 2 viewsCotacho Riggs MD Work Phone: Start: 70-46-5229DtapyitnjyfrbqgzKSBKRLZFT CLEMENT Start: 65-81-7753Vc chest real time w/image documentationTriston Riggs MD Work Phone: Start: 72-14-5955Ksnymiscne exam chest 2 views Katerina Contreras PA-C Work Phone: Start: 72-58-3851Bvxui dip stick/tablet rgnt auto w/o microscopyZabrina Suarez MD Work Phone: Start: 95-39-8069Rs chest real time w/image documentationTriston Riggs MD Work Phone: Start: 88-14-4426Iauzbarzao exam chest 2 Teressa Cesar MD Work Phone: Start: 29-13-0259Egkhelgvrmzcefogqzhpgdyvkh transoral diagnosticSue Murillo MD Work Phone: Start: 35-41-7847UAVHAIGYGAQ SKIN LESIONEmily Yanira Bynum MD Work Phone: Start: 21-47-9145Lfpsyltkqa exam chest 2 viewsTriston Riggs MD Work Phone: Start: 36-28-0573Iuttffeuhrfz ophthalmic imaging retinaJosintia Bajwa DO Work Phone: Start: 08-12-2024 End: 47-71-3000Dajew medical xm&eval comprhnsv estab pt 1/>Early dry stage nonexudative age-related macular degeneration of both eyesCynthiacandida Bajwa DO Work Phone: comment on above:Early dry stage nonexudative age- related macular degeneration of both eyes (Primary Dx); Dry eyes; Blepharitis of upper and lower eyelids of both eyes, unspecified type; Bilateral posterior capsular opacification; Chalazion of left upper eyelidStart: 92-66-2698Dsnroccu totalComment on above: Provided reference range is from 6-10 AM sample collection time.Cortisol Reference Range: 6-10 AM =4.8-19.5 ug/dL, 4-8 PM = 2.5-11.9 ug/dLStart: 20-30-2139Np chest real time w/image documentationTriston Riggs MD Work Phone: Start: 13-37-2865Esvvxtdqjf exam chest 2 Chelsie Landry APRN.[employer] UP MECH[employer]IC [employer]OMAT[employer] LINE Work Phone: Start: 52-63-8538Heiuhce serum plasma/whole blood Louise Cesar MD Work Phone: Start: 32-38-7033UX MANUAL DIFFUdchapis Cesar MD Work Phone: Start: 34-67-9627Xadd count misc body fluids w/differential countLouise Cesar MD Work Phone: [phone]: 66-83-5751AE BODY FLUIDLouise Cesar MD Work Phone: Start: 67-81-2046Nwxerbpqgy exam chest 2 viewsUdchapis Cesar MD Work Phone: [phone]: 35-66-6050Pffto 1996 panel - Serum or PlasmaXr [place] Work Phone: Start: 00-93-1465Rxvfluvanle rig transoral hypopharynx crv Carrie Murillo MD Work Phone: Start: 21-62-5576Dshshiegyct flx dx w/collj spec when pfrmFrank Murillo MD Work Phone: [phone]: 78-35-6247LloxxsfunssEcltsd Blades MD Work Phone: start: 86-05-1755Rm abdomen & pelvis w/contrast materialSue Murillo MD Work Phone: Start: 41-19-3804RLJZG ECOFIX CONTAINER PERFORMABLE Sue Murillo MD Work Phone: Start: 40-41-1293OMK EXTRA TUBESSue Murillo MD Work Phone: [phone]: 09-44-2738Ooohb of calprotectin fecalSue Murillo MD Work Phone: [phone]: 43-02-0618Vxl agent det nucleic acid clostridium amp probeSue Murillo MD Work Phone: Start: 83-64-3486MAEN ELASTASE, FECALSue Murillo MD Work Phone: Start: 77-53-0677Xlcy ia giardiaSue Murillo MD Work Phone: Start: 76-39-6985Pwew tthrc r-t 2d w/wom-mode compl spec&colr Surya Cesar MD Work Phone: Start: 67-68-1524LURU ECHOLouise Cesar MD Work Phone: Start: 16-85-4142Tw diffusing capacityUdchapis Cesar MD Work Phone: Start: 61-46-8932Aejjpq oxide gas determinationStepPalmdale Regional Medical Center 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.SET UP MECHANIC AUTOMATIC LINE Work Phone: Start: 49-50-9296Hnicjjqvp rspse spmtry pre&post- brncdilat admnSWorcester State Hospital 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.[facility] Work Phone: Start: 85-16-9025Epirriegmf exam chest 2 viewsRuma Oshea PA-C Work Phone: Start: 59-93-8906Tlldo 1996 panel - Serum or PlasmaXr HospStart: 56-23-3964Gp chest real time w/image documentationRoseann Rosario MD Work Phone: start: 11-12-2023 End: 10-25-4923Ocmoagbkcgiqj needle/cath pleura w/imagingRoseann Rosario MD Work Phone: start: 71-93-3167Xnsfdcmhhi spect multiple studies Ronaldo Flood MD, PhD Work Phone: Start: 86-17-1610Wkxgekxaad exam chest 2 viewsRonaldo Flood MD, PhD Work Phone: Start: 98-05-2098Rhfj Fast SmearDO Sintia Clemente Work Phone: Start: 42-24-9041AVZ Specimen ProcessingDO Sintia Clemente Work Phone: Start: 20-63-6863Lybzoghgcep observation [Identifier] in Unspecified specimen by Gram stainDO Sintia Clemente Work Phone: Start: 48-38-6160Qdbx Fast SmearDO [employer]ia [employer] Work Phone: Start: 12-40-4195ILD Specimen ProcessingDO Sintia Clemente Work Phone: Start: 87-89-2288Kgyyvssvoxd observation [Identifier] in Unspecified specimen by Gram stainDO Sintia Clemente Work Phone: Start: 83-97-5576Pevono-up visitFollow-upKEVIN IDNO MORAStart: 43-92-5300QZK screeningDR NONE LISTED REQUESTComment on above:Performed By: #### PSASC #### [facility] [address] [place] [address] Dr. Joni SandersScreening for malignant neoplasm of colonBenjelly Mariscal Other Plan of Treatment DateCare ActivityDetailAuthorStart: 76-04-8155NRiP/Tdap/Td Vaccines (4 - Td or Tdap)DTaP/Tdap/Td Vaccines (4 - Td or Tdap)[facility] HealthcareStart: 81-80-1422Vxxli microalbumin profileDTaP,Tdap,Td Vaccine (2 - Td or Tdap)[facility] Campustart: 36-93-0951Erdfhoyzw for malignant neoplasm of colonNOMS HealthcareStart: 64-16-0939Mvjor panelLipid ScreeningSumma Health Barberton Campustart: 51-84-2857Hbmzb panel Lipid ScreeningSumma Health Barberton Campustart: 53-38-0873Masqodh vaccinationTetanus: Every 10yrsOhioHealthStart: 83-50-5530Vmbmmvba ScreeningDiabetes Screening [facility] Campustart: 83-99-8477Ekpmqrii ScreeningDiabetes ScreeningSumma Health Barberton Campustart: 72-24-7680Awpgowbr ScreeningDiabetes ScreeningSelect [facility] Start: 66-98-4132Pouzhhlo ScreeningDiabetes ScreeningSumma Health Barberton Campustart: 99-06-3410Yydhryom ScreeningDiabetes ScreeningSumma Health Barberton Campustart: 11-13-2027 Diabetes ScreeningDiabetes ScreeningSumma Health Barberton Campustart: 59-81-2956Lbcoteaz ScreeningDiabetes ScreeningSumma Health Barberton Campustart: 09-04-5943Innavvsu Screening Diabetes ScreeningSumma Health Barberton Campustart: 20-56-6821Wyyfucco ScreeningDiabetes ScreeningSumma Health Barberton Campustart: 42-24-3662Bkiuvlrg ScreeningDiabetes Screening [facility] Campustart: 55-61-3086Upoimyuk ScreeningDiabetes ScreeningSumma Health Barberton Campustart: 29-20-4507Odshvufr ScreeningDiabetes ScreeningSelect [facility] Start: 85-15-0776Vprqhipl ScreeningDiabetes ScreeningSumma Health Barberton Campustart: 99-41-8652Zzcnjdqi ScreeningDiabetes ScreeningSumma Health Barberton Campustart: 05-29-2027 Diabetes ScreeningDiabetes ScreeningSumma Health Barberton Campustart: 24-67-5331Dcvvyuho ScreeningDiabetes ScreeningSumma Health Barberton Campustart: 70-85-4173Ndrqownx Screening Diabetes ScreeningSumma Health Barberton Campustart: 31-26-3888Hlqkbdvd ScreeningDiabetes ScreeningSumma Health Barberton Campustart: 69-85-5200Gvwtrldr ScreeningDiabetes Screening [facility] Campustart: 28-72-1458Ibhdckbd ScreeningDiabetes ScreeningSumma Health Barberton Campustart: 28-08-4861Tsfvykyw ScreeningDiabetes ScreeningSelect [facility] Start: 55-24-5488Eqiqsszy ScreeningDiabetes ScreeningSumma Health Barberton Campustart: 90-32-4630Fpelksff ScreeningDiabetes ScreeningSumma Health Barberton Campustart: 11-22-2026 Diabetes ScreeningDiabetes ScreeningSumma Health Barberton Campustart: 63-88-0581Ouipszvb ScreeningDiabetes ScreeningSumma Health Barberton Campustart: 48-34-9100Gdyzwkzrhco Syncytial Virus Immunization: Risk, 60-74 Risk, or 75+ (1 - 1-dose 75+ series)Respiratory Syncytial Virus Immunization: Risk, 60-74 Risk, or 75+ (1 - 1-dose 75+ series)[facility] HospitalStart: 71-09-7060Wiymeimivd measurement Serum CreatinineSumma Health Barberton Campustart: 75-45-0854Fexjgy PCP Team Chronic Disease VisitAnnual PCP Team Chronic Disease VisitSumma Health Barberton Campustart: 01-25-2026 Complete blood countHemoglobin/HematocritSumma Health Barberton Campustart: 01-25-2026 Creatinine measurementSerum CreatinineSumma Health Barberton Campustart: 53-71-6374Eepdng PCP Team Chronic Disease VisitAnnual PCP Team Chronic Disease VisitSumma Health Barberton Campustart: 29-40-2171RY Controlled (<130/80)BP Controlled (<130/80)[facility] Campustart: 28-10-0694WM Controlled (<130/80)BP Controlled (<130/80)[facility] Campustart: 98-94-9838Upickx PCP Team Chronic Disease VisitAnnual PCP Team Chronic Disease VisitSumma Health Barberton Campustart: 09-31-3286TW Controlled (<130/80)BP Controlled (<130/80)[facility] Campustart: 69-71-1572Tvpbiz PCP Team Chronic Disease VisitAnnual PCP Team Chronic Disease VisitSumma Health Barberton Campustart: 20-72-8363ZB Controlled (<130/80)BP Controlled (<130/80)[facility] 08-[facility]2025 End: 79-60-8293Zzxxhpb encounter procedureNOMS SWS DERMStart: 50-06-5715YQ Controlled (<130/80)BP Controlled (<130/80)[facility] Campustart: 01-44-3329UM Controlled (<130/80)BP Controlled (<130/80)[facility]rt: 08-16-2025 End: 73-18-7674Rpmusux encounter procedureNOMS NB OPHTStart: 34-26-5635Tsqdjd PCP Team Chronic Disease VisitAnnual PCP Team Chronic Disease VisitSumma Health Barberton Campustart: 16-14-9680Xuboet PCP Team Chronic Disease VisitAnnual PCP Team Chronic Disease VisitSumma Health Barberton Campustart: 72-52-7795ZV Controlled (<130/80)BP Controlled (<130/80)[facility] Campustart: 05-21-2025 End: 33-50-1808Ojtzcgs encounter mwwqxxirn59/05/2025 2:00 PM EST Office Visit Cardiology [address] [place] [phone] [place] [address] [facility] [place] [id number] 6 month follow upCardiologyComment on above:6 month follow up Start: 05-14-2025 End: 49-35-6857Ewwieyi encounter cxtdbwaxf69/28/2025 8:00 AM EST Office Visit Gastroenterology [address] [phone] Christie Palumbo APRN.CNP [address] [phone] Marlyn Hooper RefferedGastroenterologyComment on above: Marlyn Hooper RefferedStart: 96-51-0963Bpalar PCP Team Chronic Disease Visit Annual PCP Team Chronic Disease VisitSumma Health Barberton Campustart: 38-66-3853GF Controlled (<130/80)BP Controlled (<130/80)[facility] Campustart: 05-12-2025 End: 09-90-6876Qecpvqa encounter takhfvtja40/26/2025 8:25 AM EST Office Visit Gastroenterology [address] [phone] Luis Valentine MD [address] [phone] Marlyn Hooper RefferedGastroenterologyComment on above:Marlyn Hooper RefferedStart: 36-68-5688Rodxtpwzu for malignant neoplasm of colon [facility] Campustart: 04-27-2025 End: 69-59-1400Ddfwhjm encounter ctooekmwx63/11/2025 1:45 PM EST Office Visit [facility] [address] [place] [phone] Jamel Lubin DPM [address] [place], [place] [phone] [facility] PodiatryStart: 04-14-2025 End: 40-45-9266Btkeydv encounter xajjjfrxb82/29/2025 4:15 PM EDT Procedure Visit [facility] [address] [place] [phone] Jmael Lubin DPM [address] [place] [address] ElizaNO [place] PodiatryComment on above:ArrivedStart: 04-07-2025 End: 63-34-7042Ywddmhc encounter avdpgbyzr36/22/2025 2:45 PM EDT Procedure [facility] [address] [place] [address] Jamel Lubin DPM [address] [place] [address] N[facility]S [place] PodiatryStart: 03-25-2025 End: 37-36-0912Ijqziea encounter hzezgbpym43/09/2025 11:15 AM EDT Office [facility] [address] [place] [address] Jamel Lubin DPM [address] [place] [address] [facility]OMS [place] PodiatryStart: 03-17-2025 End: 75-35-9201Lkcoimn encounter exxhoftni47/01/2025 10:15 AM EDT Office [facility] [address] [place] [address] Jamel Lubin DPM [address] [place] [address] NOMS [place] PodiatryStart: 03-12-2025 End: 37-96-6870Fkfminc encounter gvqgpavdb17/26/2025 8:45 AM EDT Office [facility] [address] [place] [address] Jamel Lubin DPM [address] [place] [address] ArrivedNOMS Sheehant PodiatryComment on above:ArrivedStart: 03-09-2025 End: 81-60-3410Aqnuxuo encounter mgtrhvvuk48/23/2025 1:15 PM EDT Office [place] [address] [facility] [place], [place] [phone] [place] [address] [place] [address] Follow-upJose Antonio Hopper MDComment on above:Follow-upStart: 02-25-2025 End: 63-44-8258Chktcqs encounter wkwaocxvu77/11/2025 10:20 AM EDT Office Visit Kidney [facility] [address] [address] Zabrina Suarez MD [address] [place], [place] [id number] Elevated serum creatinine [R79.89][facility] HospitalComment on above:Elevated serum creatinine [R79.89]Start: 02-19-2025 End: 99-50-8378Vzennpq encounter tioonmsfl58/05/2025 1:30 PM EDT Appointment Radiology [address] [address] Other ascites [R18.8]RadiologyComment on above:Other ascites [R18.8]Start: 70-67-9501SIQEZ-19 Vaccine ( season)COVID-19 Vaccine ( season)[facility] Start: 82-52-8297Vnthmrmzw vaccinationInfluenza Vaccine (#1)[facility] Start: 88-32-2909Nphbgl PCP Team Chronic Disease VisitAnnual PCP Team Chronic Disease VisitSumma Health Barberton Campustart: 85-64-8233KC Controlled (<130/80)BP Controlled (<130/80)[facility] Campustart: 02-09-2025 End: 02-55-1163Vtloevdfxuoln metabolic 2000 panel - Serum or PlasmaCOMPREHENSIVE METABOLIC PANEL Lab Routine Stage 3a chronic kidney disease (HCC) Expected: 02/09/2025, Expires: 05/10/2025P [facility] Work Phone: comment on above:Expected: 02/09/2025, Expires: 05/10/2025Start: 56-00-9079LL Controlled (<130/80)BP Controlled (<130/80) [facility] Campustart: 02-02-2025 End: 03-84-6183Zvgdalwta to same day surgery rxybxh9202/02/2025 9:30 AM EDT - 02/02/2025 11:20 AM EDT Surgery Angio [address] [place] [address] R ADIOLOGY SPECIALIST [address] [place] [address] TRANSCATHETER BIOPSY AngioComment on above:TRANSCATHETER BIOPSYStart: 15-72-7455Kctbvzudxc hospital visit by /19/2025 9:30 AM EDT Hospital Encounter Angio [address] [id number] 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 STOP 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 [address] [place] [address] Elevated alkaline phosphatase level [R74.8]AngioComment on above:Elevated alkaline phosphatase level [R74.8]Start: 02-02-2025 End: 55-84-2841Htzwbvyrmhoof biopsyTRANSCATHETER BIOPSY Elevated alkaline phosphatase level 02/02/2025 9:30 AM EDTMC ANGIO WM8Rijmp: 01-26-2025 End: 34-04-4198Glnxxie encounter ctguqctfy90/12/2025 1:00 PM EDT [place] [address] [place] [address] [place] [address] [place] [address] Follow-upJose Antonio Hopper MDComment on above:Follow-upStart: 02-27-1274Pcpehp PCP Team Chronic Disease VisitAnnual PCP Team Chronic Disease VisitSumma Health Barberton Campustart: 01-11-2025 End: 50-03-2466Xkowjfk encounter /28/2025 9:30 AM EDT Office Visit Pulmonary Medicine [address] [address] Triston Riggs MD [address] [place] [address] 4-6 weeksPulmonary MedicineComment on above:4-6 weeksStart: 01-08-2025 End: 63-95-8551Nlzszxz encounter tfjewwxqh35/25/2025 1:00 PM EDT Appointment Radiology [address] [place] [address] [place] [address] XRCHEST 2V FRONTAL/LATRadiologyComment on above:XR CHEST 2V FRONTAL/LATStart: 12-22-2024 End: 05-29-9477cpiwguwlzk66/08/2025 6:00 PM EDT [facility] Gastroenterology [address] [address] Marlyn Hooper APRN.SET UP MECHANIC AUTOMATIC LINE [address] [place] [address] Elevated alkaline phosphatase leveGastroenterologyComment on above:Elevated alkaline phosphatase leveStart: 12-22-2024 End: 08-91-4094Stoky 1 antitrypsin [Mass/volume] in Serum or Plasma YCFRZ-7-CPDYIFUZKCO Lab Routine Elevated alkaline phosphatase level Expected: 12/22/2024, Expires: 03/23/2025leveland ClinicComment on above:Expected: 12/22/2024, Expires: 03/23/2025Start: 12-22-2024 End: 91-80-3458VFH BY IFA WITH REFLEXANA BY IFA WITH REFLEX Lab Routine Elevated alkaline phosphatase level Expected: 12/22/2024, Expires: 03/23/2025[facility] ClinicComment on above:Expected: 12/22/2024, Expires: 03/23/2025Start: 12-22-2024 End: 63-95-4367Cqdsb metabolic 2000 panel - Serum or PlasmaBASIC METABOLIC PANEL Lab Routine Hypokalemia Expected: 12/22/2024, Expires: 03/23/2025[facility] Work Phone: comment on above:Expected: 12/22/2024, Expires: 03/23/2025Start: 12-22-2024 End: 16-61-4499WJH panel - Blood by Automated countCOMPLETE BLOOD COUNT Lab Routine Elevated alkaline phosphatase level Expected: 12/22/2024, Expires: 03/23/2025leveland ClinicComment on above:Expected: 12/22/2024, Expires: 03/23/2025Start: 12-22-2024 End: 80-13-7705Drihyjs hepatitis differentiation between hepatitis B and C virus panel - Serum or PlasmaHEP REMOTE PANEL BL Lab Routine Elevated alkaline phosphatase level Expected: 12/22/2024, Ex[facility]: [facility] Comment on above:Expected: 12/22/2024, Expires: 03/23/2025Start: 12-22-2024 End: 40-62-3898Meddvctamsxse metabolic 2000 panel - Serum or PlasmaCOMPREHENSIVE METABOLIC PANEL Lab Routine Elevated alkaline phosphatase level Expected: 12/22/2024,Expires: 03/23/2025[facility] ClinicComment on above:Expected: 12/22/2024, Expires: 03/23/2025Start: 12-22-2024 End: 36-49-0931Qbaxzzgdzsuqcar IgM Ab [Units/volume] in Serum or PlasmaCMV IGM AB Lab Routine Elevated alkaline phosphatase level Expected: 12/22/2024, Expires: 03/23/2025[facility] ClinicComment on above:Expected: 12/22/2024, Expires: 03/23/2025Start: 12-22-2024 End: 80-63-0700Ligbtvhe [Mass/volume] in Serum or PlasmaFERRITIN Lab Routine Elevated alkaline phosphatase level Expected: 12/22/2024, Expires: 03/23/2025 [facility]:Expected: 12/22/2024, Expires: 03/23/2025Start: 12-22-2024 End: 14-41-7171Vrwxk glutamyl transferase [Enzymatic activity/volume] in Serum or PlasmaGGT Lab Routine Elevated alkaline phosphatase level Expected: 12/22/2024, Expires: 03/23/2025[facility] ClinicComment on above:Expected: 12/22/2024, Expires: 03/23/2025Start: 12-22-2024 End: 42-58-3128Wgwl and Iron binding capacity panel - Serum or PlasmaIRON AND TIBC Lab Routine Elevated alkaline phosphatase level Expected: 12/22/2024, Expires: 03/23/2025[facility] ClinicComment on above:Expected: 12/22/2024, Expires: 03/23/2025Start: 12-22-2024 End: 02-79-8838Tjsra kidney microsomal Ab [Titer] in Serum by Immunofluorescence LIVER-KIDNEY MICROSOME ANTIBODY, IGG Lab Routine Elevated alkaline phosphatase level Expected: 12/22/2024, Expires: 03/23/2025[facility] ClinicComment [facility] above: Expected: 12/22/2024, Expires: 03/23/2025Start: 12-22-2024 End: 23-98-3249Vozqpftjboji Ab [Presence] in Serum by Immunofluorescence MITOCHONDRIAL M2 IGG SERUM Lab Routine Elevated alkaline phosphatase level Expected: 12/22/2024, Expires: 03/23/2025[facility] ClinicComment on above: Expected: 12/22/2024, Expires: 03/23/2025Start: 12-22-2024 End: 88-58-3881NA panel - Platelet poor plasma by Coagulation assayPROTHROMBIN TIME Lab Routine Elevated alkaline phosphatase level Expected: 12/22/2024, Expires: 03/23/2025[facility] ClinicComment on above:Expected: 12/22/2024, Expires: 03/23/2025Start: 12-22-2024 End: 40-74-1817Wsbxmm muscle Ab [Presence] in SerumSMOOTH MUSCLE AB SCR Lab Routine Elevated alkaline phosphatase level Expected: 12/22/2024, Expires: 03/23/2025[facility] ClinicComment on above:Expected: 12/22/2024, Expires: 03/23/2025Start: 12-16-2024 End: 55-97-0953Dhgwfaj encounter procedureVascular SurgeryComment on above: Extremity cyanosis [R23.0]Start: 12-16-2024 End: 08-87-9809Dsrnjkk encounter uzujlhhwa51/02/2025 12:30 PM EDT Office Visit Vascular Surgery [address] [place] [address] Extremity cyanosis [R23.0]Vascular SurgeryComment on above:Extremity cyanosis [R23.0]Start: 12-15-2024 End: 54-42-1868Ufkbmdg encounter enshjwlal53/01/2025 11:15 AM EDT [place] [address] [place] [address] [place] [address] [place] [address] Follow-upJose Antonio Hopper MDComment on above:Follow-upStart: 12-03-2024 End: 70-55-2462wfdcfwbkns80/19/2025 8:30 AM EDT [facility] Gastroenterology [address] [address] Marlyn Hooper APRN.SET UP MECHANIC AUTOMATIC LINE [address] [place] [address] Elevated alkaline phosphatase leveGastroenterologyComment on above:Elevated alkaline phosphatase leveStart: 11-23-2024 End: 91-96-5497Xoexlap encounter procedureRadiologyComment on above:Hepatomegaly [R16.0]Extremity cyanosis [R23.0]CXRH&P Established Patient VisitStart: 11-20-2024 End: 62-23-1372LnjuzvvvljwikhddOCAH Cardiology Routine Extremity cyanosis Expected: 11/20/2024, Expires: 11/20/2025[facility] ClinicComment on above: Expected: 11/20/2024, Expires: 11/20/2025Start: 11-20-2024 End: 98-53-4568Rhqsrag encounter qdzudwfzo68/06/2025 9:00 AM EDT Office Visit Cardiology [address] [place] [phone] [place] [address] [place] [address] PAD, LE with poor perfusionCardiologyComment on above:PAD, LE with poor perfusionStart: 11-19-2024 End: 27-42-1032Kgjxdbk encounter procedurePulmonary MedicineComment on above:f/u visit/Dr. KENNEDY will see pt.Start: 11-19-2024 End: 79-56-7089tvhlnpyjkg38/05/2025 10:30 AM EDT [facility] Gastroenterology [address] [phone] Marlyn Hooper, 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.SET UP MECHANIC AUTOMATIC LINE [address] [place] [address] Elevated alkaline phosphatase leveGastroenterologyComment on above: Elevated alkaline phosphatase leveStart: 11-14-2024 End: 07-12-7605Jgvgrnmlyjjke metabolic 2000 panel - Serum or PlasmaCOMPREHENSIVE METABOLIC PANEL Lab Routine Hepatomegaly Expected: 11/14/2024, Expires: 02/13/2025[facility] ClinicComment on above:Expected: 11/14/2024, Expires: 02/13/2025Start: 11-14-2024 End: 36-65-7464Qrheyzzjx [Mass/volume] in Serum or PlasmaMAGNESIUM Lab Routine Hypomagnesemia Expected: 11/14/2024, Expires: 02/13/2025[facility] ClinicComment on above:Expected: 11/14/2024, Expires: 02/13/2025Start: 11-13-2024 End: 08-84-7150Vkobg hepatitis 2000 panel - SerumHEP ACUTE PANEL BL Lab Routine Hepatomegaly Expected: 11/13/2024, Expires: 02/12/2025P JOSE ANTONIO HOPPER MD [facility] Work Phone: comment on above:Expected: 11/13/2024, Expires: 02/12/2025Start: 11-13-2024 End: 96-88-2200LIVFKMRZVH HEPATITIS DIAGNOSTIC PANELAUTOIMMUNE HEPATITIS DIAGNOSTIC PANEL Lab Routine Hepatomegaly Expected: 11/13/2024, Expires: leveland ClinicComment on above:Expected: 11/13/2024, Expires: 02/12/2025 Start: 11-13-2024 End: 02-90-2552XVFOUO BLOODCOPPER BLOOD Lab Routine Hepatomegaly Expected: 11/13/2024, Expires: 02/12/2025[facility] ClinicComment on above:Expected: 11/13/2024, Expires: 02/12/2025Start: 11-13-2024 End: 34-22-0961Otmdetlas C virus RNA [Units/volume] (viral load) in Serum or Plasma by BRYN with probe detectionHEPATITIS C VIRUS (HCV) RNA, QUANTITATIVE PCR, PLASMA/SERUM Lab Routine Hepatomegaly Expected: 11/13/2024, Expires: 02/12/2025 [facility]Comment [facility]:Expected: 11/13/2024, Expires: 02/12/2025Start: 11-13-2024 End: 33-58-9923Pozz and Iron binding capacity panel - Serum or PlasmaIRON AND TIBC Lab Routine Hepatomegaly Expected: 11/13/2024, Expires: 02/12/2025[facility] ClinicComment on above:Expected: 11/13/2024, Expires: 02/12/2025Start: 11-13-2024 End: 23-83-9974Sjgfpxz encounter vmrkekpjj14/30/2025 1:00 PM EDT Office [place] [address] [place] [address] [place] [address] [place] [address] Follow-upJose Antonio Hopper MDComment on above:Follow-upStart: 11-04-2024 End: 59-94-8012Obmuawm [facility]San [facility] Radiology CT ScanComment on above:CT ENTEROGRAPHY W IVCONStart: 10-23-2024 End: 49-07-1942Mdzvrst encounter procedureSan Juan Hospital Draw StationComment on above:LABUS ABD RIGHT UPPER QUADRANTStart: 10-19-2024 End: 90-86-6743Tdamuqc [Enzymatic activity/volume] in Serum or PlasmaAMYLASE Lab Routine Serositis ([facility]) Expected: 10/19/2024, Expires: 01/18/2025[facility] ClinicComment on above:Expected: 10/19/2024, Expires: 01/18/2025Start: 10-19-2024 End: 94-77-4173RBK SUBCLASSES BLDIGG SUBCLASSES BLD Lab Routine Serositis ([facility]) Expected: 10/19/2024, Expires: 01/18/2025[facility] Work Phone: comment on above:Expected: 10/19/2024, Expires: 01/18/2025Start: 10-19-2024 End: 32-81-8289Fvcbvp [Enzymatic activity/volume] in Serum or PlasmaLIPASE Lab Routine Serositis ([facility]) Expected: 10/19/2024, Expires: 01/18/2025[facility] ClinicComment on above:Expected: 10/19/2024, Expires: 01/18/2025Start: 10-15-2024 End: 33-08-6999XYH PHOS ISOENZYM [facility] Osteopathic ClinicComment on above:Expected: 10/15/2024, Expires: 01/14/2025Start: 10-14-2024 End: 83-59-4381Ieirugm encounter procedurePulmonary MedicineComment on above:EST pt visit in 3 w/Dr Riggs post 10/02 procedureabdominal painStart: 10-13-2024 End: 51-23-2270Qyndhrv encounter yjflrniqw56/29/2025 1:00 PM EDT Appointment Radiology [address] [place] [address] [place] [address] CHEST XRAY RadiologyComment on above:CHEST XRAYStart: 10-02-2024 End: 27-99-4538Idtjcurcruxfb needle/cath pleura w/imagingTHORACENTESIS NEEDLE OR CATHETER ASPIRATION OF THE PLEURAL SPACE W IMAGING GUIDANCE Bronchiolar disease 10/02/2024 11:42 AM EDTMC PULM LAB M18Tiplm: 10-02-2024 End: 30-26-1831Bnsbtobkb to same day surgery vutvfm3310/02/2024 10:30 AM EDT - 10/02/2024 11:30 AM EDT Surgery Admitting [phone] Merlyn Zavala MD [address] [facility] [place] [address] THORACENTESIS NEEDLE OR CATHETER ASPIRATION OF THE PLEURAL SPACE W IMAGING GUIDANCEAdmittingComment on above:THORACENTESIS NEEDLE OR CATHETER ASPIRATION OF THE PLEURAL SPACE W IMAGING GUIDANCEStart: 10-02-2024 Subsequent hospital visit by ageixysui43/18/2025 10:30 AM EDT Hospital Encounter Admitting [address] [phone] Merlyn Zavala MD [address] [place] [address] Bronch iolar disease [J98.09]AdmittingComment on above: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] Start: 10-02-2024 End: 43-99-9611Qvhnruozmmafq needle/cath pleura w/imagingTHORACENTESIS NEEDLE OR CATHETER ASPIRATION OF THE PLEURAL SPACE W IMAGING GUIDANCE Bronchiolar disease 10/02/2024 10:30 AM EDTMC PULM LAB O19Jtbqt: 09-25-2024 End: 58-57-0555Yngkwvi encounter procedureGastroenterologyComment on above: Esophageal dysphagia [R13.19]Start: 09-22-2024 End: 66-06-3107Uysbjls encounter procedureJose Antonio Hopper MDComment on above: Follow-upStart: 09-11-2024 End: 74-94-4192Nkinx metabolic 2000 panel - Serum or PlasmaBASIC METABOLIC PANEL Lab Routine Hypokalemia Expected: 09/11/2024, Expires: 12/11/2024P JOSE ANTONIO HOPPER MD [facility] Work Phone: Comment on above:Expected: 09/11/2024, Expires: 12/11/2024Start: 09-11-2024 End: 12-63-4519LKE panel - Blood by Automated countCOMPLETE BLOOD COUNT Lab Routine Anemia, unspecified type Expected: 09/11/2024, Expires: 12/11/2024 [facility]Comment [facility]:Expected: 09/11/2024, Expires: 12/11/2024Start: 09-08-2024 End: 83-93-3888Pmrglgefg to same day surgery hopczq8609/08/2024 10:30 AM EDT - 09/08/2024 11:30 AM EDT Surgery Admitting [address] [address] Roseann Rosario MD [address] [place] [address] THORACENTESIS NEEDLE OR CATHETER ASPIRATION OF THE PLEURAL SPACE W IMAGING GUIDANCEAdmittingComment on above:THORACENTESIS NEEDLE OR CATHETER ASPIRATION OF THE PLEURAL SPACE W IMAGING GUIDANCEStart: 09-08-2024 Subsequent hospital visit by efulbycxx68/25/2025 10:30 AM EDT Hospital Encounter Admitting [address] [address] Roseann Rosario MD [address] [place] [address] Bronchiola r disease [J98.09]AdmittingComment on above: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]Start: 09-08-2024 End: 14-76-2461Ezmyvzkksbill needle/cath pleura w/imagingTHORACENTESIS NEEDLE OR CATHETER ASPIRATION OF THE PLEURAL SPACE W IMAGING GUIDANCE Bronchiolar disease 09/08/2024 10:30 AM EDTMC PULM LAB Q34Aexjk: 09-04-2024 End: 74-02-7238Tgukmve encounter luawbrmed32/21/2025 1:15 PM EDT [place] [address] [place] [address] [place] [address] [place] [address] Follow-upJose Antonio Hopper MDComment on above:Follow-upStart: 09-04-2024 End: 73-38-0881Yphdmvyho to same day surgery vgykme9109/04/2024 10:30 AM EDT - 09/04/2024 11:30 AM EDT Surgery Admitting [phone] James Enamorado MD [address] [place] [address] THORACENTESIS NEEDLE OR CATHETER ASPIRATION OF THE PLEURAL SPACE W IMAGING GUIDANCEAdmittingComment on above:THORACENTESIS NEEDLE OR CATHETER ASPIRATION OF THE PLEURAL SPACE W IMAGING GUIDANCEStart: 09-04-2024 Subsequent hospital visit by jyrgohdcb24/21/2025 10:30 AM EDT Hospital Encounter Admitting [phone] James Enamorado MD [address] [place] [address] Bronchio lar disease [J98.09]AdmittingComment on above: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]Start: 09-04-2024 End: 54-11-1696Njebrwhtbmdzw needle/cath pleura w/imaging PULM LAB I13Yutuj: 09-01-2024 End: 91-00-2790Cyltcfvzmtczq metabolic 2000 panel - Serum or PlasmaCOMPREHENSIVE METABOLIC PANEL Lab Routine Recurrent pleural effusion on right Expected: 09/01/2024,Expires: 12/01/2024P JOSE ANTONIO HOPPER MD [facility] Work Phone: comment on above:Expected: 09/01/2024, Expires: 12/01/2024Start: 09-01-2024 End: 31-50-9632Ibateqwsj [Mass/volume] in Serum or PlasmaMAGNESIUM Lab Routine Recurrent pleural effusion on right Expected: 09/01/2024, Expires: 12/01/2024 [facility]Comment on above:Expected: 09/01/2024, Expires: 12/01/2024Start: 08-28-2024 End: 96-28-5369Ohuymphfins [Units/volume] in Serum or PlasmaCP [facility] Work Phone: comment on above:Expected: 08/28/2024, Expires: 11/27/2024Start: 08-27-2024 End: 04-09-8524Mmscijh encounter procedureNOMS SWS DERMComment on above:Arrived Start: 08-24-2024 End: 85-32-9259Ionrmoddboruz metabolic 2000 panel - Serum or PlasmaPatillas ClinicComment on above:Expected: 08/24/2024, Expires: 11/23/2024Start: 08-24-2024 End: 96-44-0142Xyjkrujjj [Mass/volume] in Serum or PlasmaSelect Medical Specialty Hospital - [facility]-FairhillComment on above:Expected: 08/24/2024, Expires: 11/23/2024Start: 08-24-2024 End: 07-19-2612Opsqlrejltm [Units/volume] in Serum or PlasmaOhio State University [facility] Work Phone: Comment on above:Expected: 08/24/2024, Expires: 11/23/2024Start: 08-24-2024 End: 43-71-9035Uaaawkv encounter kxvpzcbuu83/10/2025 11:00 AM EDT Office Visit Gastroenterology [phone] Sue Murillo MD [address] [place], [place] [phone] DiarrheaGastroenterologyComment on above:DiarrheaStart: 08-21-2024 End: 56-79-7009Cbqpr metabolic 2000 panel - Serum or PlasmaBASIC METABOLIC PANEL Lab Routine Recurrent pleural effusion on right Expected: 08/21/2024, Expires: 11/20/2024P [facility] Work Phone: comment on above:Expected: 08/21/2024, Expires: 11/20/2024Start: 08-18-2024 End: 21-40-6254Ujrffyh encounter skrahiwmg41/04/2025 2:00 PM EST Office Visit Thoracic Clinic [address] [phone] Della Barragan APRN.SET UP MECHANIC AUTOMATIC LINE [address] [place], [place] [phone] Pleural EffusionThoracic ClinicComment on above:Pleural EffusionStart: 08-13-2024 End: 74-89-6498Dwybywc encounter ggobitunp32/27/2025 9:30 AM EST Appointment Radiology [address] [place], [place] [phone] CHEST XR RadiologyComment on above:CHEST XRStart: 08-12-2024 End: 56-48-4960Uqdxite encounter nptvmicjm16/26/2025 3:00 PM EST Office Visit [facility] [address] [place] [phone] Anne-Marie Bajwa DO [address] [place] [address] ArrivedJAYME CUI OPHTComment on above:ArrivedStart: 07-28-2024 End: 63-32-1509Yzhydzyfk [Mass/volume] in Serum or PlasmaMAGNESIUM Lab Routine Hypomagnesemia Expected: 07/28/2024, Expires: 10/27/2024[facility] ClinicComment on above:Expected: 07/28/2024, Expires: 10/27/2024Start: 07-24-2024 End: 271195-ktufaynrypggcr D3 [Mass/volume] in Serum or PlasmaVITAMIN D 25 HYDROXY Lab Routine Fatigue, unspecified type Expected: 07/24/2024, Expires: 10/23/2024[facility] ClinicComment on above:Expected: 07/24/2024, Expires: 10/23/2024Start: 07-24-2024 End: 17-23-5947Dbovzqniz (Vitamin B12) [Mass/volume] in Serum or PlasmaVITAMIN B12 Lab Routine Fatigue, unspecified type Expected: 07/24/2024, Expires: 10/23/2024P JOSE ANTONIO HOPPER MD [facility] Work Phone: comment on above:Expected: 07/24/2024, Expires: 10/23/2024Start: 07-24-2024 End: 47-40-2430Ovtiqfrh [Mass/volume] in Serum or PlasmaCORTISOL, SERUM Lab Routine Fatigue, unspecified type Expected: 07/24/2024, Expires: 10/23/2024 [facility]Comment on above:Expected: 07/24/2024, Expires: 10/23/2024Start: 07-21-2024 End: 85-61-5327Fwoae metabolic 2000 panel - Serum or PlasmaBASIC METABOLIC PANEL Lab Routine Anasarca Expected: 07/21/2024, Expires: 10/20/2024P JOSE ANTONIO HOPPER MD [facility] Work Phone: comment on above:Expected: 07/21/2024, Expires: 10/20/2024Start: 07-21-2024 End: 29-54-1412Kdsalpy encounter lcxraikkz36/04/2025 2:00 PM EST Office Visit [place] [address] [place], [place] [phone] [place] [address] [place] [address] Follow-upJose Antonio Hopper MDComment on above:Follow-upStart: 07-20-2024 End: 80-24-4240RF Chest AP right lateral-decubitusXR CHEST 1V DECUBITUS RIGHT Radiology Routine Pleural effusion Expected: 07/20/2024, Expires: 08/19/2025 [facility]Comment on above:Expected: 07/20/2024, Expires: 08/19/2025Start: 07-20-2024 End: 84-26-8418LM Chest PA and LateralXR CHEST 2V FRONTAL/LAT Radiology Routine Pleural effusion Expected: 07/20/2024, Expires: 08/19/2025[facility] Work Phone: Comment on above:Expected: 07/20/2024, Expires: 08/19/2025Start: 07-20-2024 End: 68-60-6154Wvtjgsw encounter thnwjnyzk99/03/2025 1:00 PM EST Office Visit Pulmonary Medicine [address] [place] [address] Triston Riggs MD [address] [place] [address] Katerina Contreras PA-C [address] [place] [address] H&P Established PatientPulmonary Medicine Comment on above:H&P Established PatientStart: 06-22-2024 End: 89-40-7728TWKH FLUID CELL COUNTBODY FLUID CELL COUNT Lab Routine Pleural effusion Pleuritis Lymphocytic colitis Pericardial effusion (noninflammatory) Interstitial pulmonary disease (HCC) Expected: 06/22/2024, Expires: 09/21/2024 [facility]Comment on above:Expected: 06/22/2024, Expires: 09/21/2024Start: 06-22-2024 End: 56-13-4006MOAS CYTOMETRY FOR LEUKEMIA/LYMPHOMA (FCLL)FLOW CYTOMETRY FOR LEUKEMIA/LYMPHOMA (FCLL) Lab Routine Pleural effusion Pleuritis Lymphocytic colitis Pericardial effusion (noninflammatory) Interstitial pulmonary disease (HCC) Expected: 06/22/2024, Expires: 09/21/2024[facility] ClinicComment on above: Expected: 06/22/2024, Expires: 09/21/2024Start: 06-22-2024 End: 79-21-3493Pgaiwzm [Mass/volume] in Body fluidGLUCOSE, BODY FLUID Lab Routine Pleural effusion Pleuritis Lymphocytic colitis Pericardial effusion (noninflammatory) Interstitial pulmonary disease (HCC) Expected: 06/22/2024, Expires: 09/21/2024[facility] ClinicComment on above:Expected: 06/22/2024, Expires: 09/21/2024Start: 06-22-2024 End: 78-24-2012Jrjgltf dehydrogenase [Enzymatic activity/volume] in Body fluid LACTATE DEHYDROGENASE, BODY FLUID Lab Routine Pleural effusion Pleuritis Lymphocytic colitis Pericardial effusion (noninflammatory) Interstitial pulmonary disease (HCC) Expected: 06/22/2024, Expires:09/21/2024[facility] Comment on above:Expected: 06/22/2024, Expires: 09/21/2024Start: 06-22-2024 End: 57-05-0871Aeucqeltzeojc needle/cath pleura w/imagingTHORACENTESIS NEEDLE OR CATHETER ASPIRATION OF THE PLEURAL SPACE W IMAGING GUIDANCE Bronchiolar disease 06/22/2024 10:15 AM [facility] PULM LAB D43Miczj: 06-22-2024 End: 85-66-8149Wonanes encounter icgudraug89/06/2025 9:00 AM EST Office Visit Pulmonary Medicine [address] [address] Triston Riggs MD [address] [place] [address] NPVPulmonary MedicineComment on above:NPVStart: 37-15-3572Pysinkl Directive DiscussionAdvance Directive DiscussionSumma Health Barberton Campustart: 01-01-2025Medicare Advantage Annual Wellness VisitMedicare Advantage Annual Wellness VisitSumma Health Barberton Campustart: 06-12-2024 End: 35-16-6125Feueqkh encounter lwvspfymo43/27/2024 1:30 PM EST Office [place] [address] [place] [address] [place] [address] [place] [address] Follow-upJose Antonio Hopper MDComment on above:Follow-upStart: 06-01-2024 End: 71-59-3232Aakiuiq encounter qxmgzzeev76/16/2024 12:30 PM EST Office Visit Rheumatology [address] [address] Steffen Mccarty MD [address] [place] [address] 2mo f/uRheumatologyComment on above:2mo f/uStart: 05-26-2024 End: 66-00-4596Edkpuax encounter yxxeyzomd84/10/2024 4:30 PM EST Office Visit Gastroenterology [address] [address] Sue Murillo MD [address] [place], [place] [phone] Diarrhea Follow UpGastroenterologyComment on above:Diarrhea Follow Up Start: 05-20-2024 End: 31-11-2255Dwicc metabolic 2000 panel - Serum or PlasmaBASIC METABOLIC PANEL Lab Routine Recurrent pleural effusion on right Anasarca Expected: 05/20/2024, Expires: 08/19/2024P [facility] Work Phone: comment on above:Expected: 05/20/2024, Expires: 08/19/2024Start: 05-19-2024 End: 80-88-6101Nvpqhmj encounter nstwoaybu27/03/2024 11:30 AM EST Office [place] [address] [place] [address] [place] [address] [place] [address] Follow-upJose Antonio Hopper MDComment on above:Follow-upStart: 05-18-2024 End: 26-45-6276Caeraqgd identified in Body fluid by CultureBODY FLUID CULTURE AND GRAM STAIN Microbiology Routine Pleural effusion Expected: 05/18/2024, Expires: 08/17/2024[facility] ClinicComment on above:Expected: 05/18/2024, Expires: 08/17/2024Start: 05-18-2024 End: 81-20-9842ELKBRVVP NON-GYNPatillas ClinicComment on above:Expected: 05/18/2024, Expires: 08/17/2024Start: 05-18-2024 End: 29-85-9408JWWTY ACIDS PROFILE, ESSENTIALOhio State University [facility] Center Work Phone: Comment on above:Expected: 05/18/2024, Expires: 08/17/2024Start: 05-18-2024 End: 52-91-9078IYBR CYTOMETRY FOR LEUKEMIA/LYMPHOMA (FCLL)[facility] Comment on above:Expected: 05/18/2024, Expires: 08/17/2024Start: 05-18-2024 End: 48-61-7998Hragevnrnthcr identified in Unspecified specimen by CultureAFB CULT + STAIN Microbiology Routine Pleural effusion Expected: 05/18/2024, Expires: 08/17/2024[facility] ClinicComment on above:Expected: 05/18/2024, Expires: 08/17/2024Start: 05-18-2024 End: 96-78-6731Sxxifxk encounter tqkiuvveq25/02/2024 10:40 AM EST Office Visit Pulmonary Medicine [address] [place] [address] Louise Cesar MD [address] [place] [address] follow upPulmonary MedicineComment on above:follow upStart: 05-13-2024 End: 66-28-6318Nejtrrs encounter pnuxcvfps01/27/2024 11:30 AM EST Office [place] [address] [place] [address] [place] [address] [place] [address] Follow-upJose Antonio Hopper MDComment on above:Follow-upStart: 04-28-2024 End: 85-42-4390Ekftacs encounter procedureSelect [facility] TickfawComment on above:Diarrhea, unspecified type [R19.7]Start: 04-20-2024 End: 77-64-1423Xqssrqsqaz ehtntaqfuexj66/04/2024 11:59 PM EST Anesthesia Event [facility] [address] [place] [phone] Silvino Henley APRN.CRNASelect Medical Specialty Hospital [facility] CenterStart: 04-20-2024 End: 07-97-9941Uoqcdlf encounter ddqvznxoi00/04/2024 12:00 PM EST Office Visit Gastroenterology [address] [address] Sue Murillo MD [address] [place] [address] Diarrhea, unspecified type [R19.7]GastroenterologyComment on above: Diarrhea, unspecified type [R19.7]Start: 04-13-2024 End: 28-58-4682Soktrfq encounter ufdkqrjyd33/28/2024 11:00 AM EDT Office Visit Rheumatology [address] [address] Steffen Mccarty MD [address] [place] [address] J90 (ICD-10-CM) - Pleural effusionRheumatologyComment on above:J90 (ICD-10-CM) - Pleural effusionStart: 03-30-2024 End: 21-64-5787Uvlbmgi encounter sqfukfivu61/14/2024 9:30 AM EDT Office Visit Rheumatology [address] [address] Steffen Mccarty MD [address] [place] [address] J90 (ICD-10-CM) - Pleural effusionRheumatologyComment on above:J90 (ICD-10-CM) - Pleural effusionStart: 03-26-2024 End: 46-54-8336Mzduevq encounter hylapzyho63/10/2024 2:30 PM EDT Appointment Cardiovascular Testing [address] [place] [address] Pericarditis, unspecified chronicity, unspecified type [I31.9]Cardiovascular TestingComment on above:Pericarditis, unspecified chronicity, unspecified type [I31.9]Start: 03-17-2024 End: 45-31-3595Gcoyrwm encounter hpjplxzco40/01/2024 4:30 PM EDT Appointment Radiology [address] [place] [address] Interstitial pulmonary disease (HCC) [J84.9]RadiologyComment on above:Interstitial pulmonary disease (HCC) [J84.9]Start: 03-17-2024 End: 14-27-0086Rnyxmvg encounter procedureThoracic SurgeryComment on above: Pleural effusionStart: 03-17-2024 End: 37-80-6262rllztsauog55/01/2024 1:15 PM EDT Procedure Pulmonary Lab [address] [facility] [address] [place] [address] Pleural effusion [J90]; Interstitial pulmonary disease (HCC) [J84.9]Pulmonary LabComment on above: Pleural effusion [J90]; Interstitial pulmonary disease (HCC) [J84.9]Start: 03-17-2024 End: 45-31-4540Tzbfdua encounter wikbcwjif06/01/2024 10:20 AM EDT Office Visit PULMONOLOGY [facility] [address] [place] [address] Louise Cesar MD [address] [place] [address] NEW Chronic cough pt + CXR + PFT'SPULMONOLOGY [facility] Comment on above:NEW Chronic cough pt + CXR + PFT'SStart: 03-17-2024 End: 24-87-5867Yinyebr encounter /01/2024 9:15 AM EDT Appointment XRAY / RADIOLOGY [facility] [address] [place] [address] Chronic bronchitis, unspecified chronic bronchitis type (HCC) [E79HNDW / [facility]Y [facility]ITALComment on above:Chronic bronchitis, unspecified chronic bronchitis type (HCC) [F96Gawxz: 03-17-2024 End: 48-65-1653gfdpbfokifQDQQKCKPMMG LAB [facility]ITALComment on above:Chronic cough [R05.3]Pleural effusion [J90]; Interstitial pulmonary disease (HCC) [J84.9]Start: 22-09-4956Mhhtw-19 Vaccine ()Covid-19 Vaccine ()[facility]: 17-64-6999Skxpv-19 Vaccine ()Covid-19 Vaccine ()[facility]: 02-16-2024 Covid-19 Vaccine ()Covid-19 Vaccine () [facility]: 53-77-0288Mrqqhjzhi vaccinationSumma Health Barberton Campustart: 02-12-2024 End: 49-86-1711Gjnri metabolic 2000 panel - Serum or PlasmaBASIC METABOLIC PANEL Lab Routine Primary hypertension Expected: 02/12/2024, Expires: 05/13/2024 [facility]Comment [facility]:Expected: 02/12/2024, Expires: 05/13/2024Start: 02-12-2024 End: 48-28-6462WUA panel - Blood by Automated countCOMPLETE BLOOD COUNT Lab Routine Primary hypertension Anemia, unspecified type Expected: 02/12/2024, Expires: 05/13/2024P JOSE ANTONIO HOPPER MD [facility] Work Phone: comment on above:Expected: 02/12/2024, Expires: 05/13/2024Start: 02-12-2024 End: 82-55-9279Gxpcdmaqt [Mass/volume] in Serum or PlasmaMAGNESIUM Lab Routine Primary hypertension Hypomagnesemia Expected: 02/12/2024, Expires: 05/13/2024 [facility]Comment [facility] above:Expected: 02/12/2024, Expires: 05/13/2024Start: 02-12-2024 End: 00-23-8117Gfwbswy encounter xnwuamqrl94/28/2024 1:30 PM EDT [place] [address] [facility] [address] [place] [address] [place] [address] [facility] [address] [place], [place] [id number] [facility] Yanira Dial MDComment on above:[facility]: 02-12-2024 End: 42-67-7004Rakzhdt encounter ukehipicy13/28/2024 10:45 AM ED[place] [address] [place] [address] [place] [address] [place] [address] Follow-upVjuan francisco Hopper MDComment on above:Follow-upStart: 02-04-2024 End: 68-98-9288Xdiszzi encounter procedureRADIO [facility] MCComment on above:Recurrent pleural effusion on right [J90]Start: 01-15-2024 End: 63-02-6457Uqbxe metabolic 2000 panel - Serum or PlasmaBASIC METABOLIC PANEL Lab Routine Recurrent pleural effusion on right Expected: 01/15/2024, Expires: 04/15/2024P JOSE ANTONIO HOPPER [facility] Work Phone: comment on above:Expected: 01/15/2024, Expires: 04/15/2024Start: 01-15-2024 End: 12-83-8210Tyflaeb encounter kdmrigsxb81/31/2024 1:00 PM EDT [place] [address] [place] [address] [place] [address] [place] [address] New PatientVjuan francisco Hopper MDComment on above:New Patient Start: 01-06-2024 End: 91-01-9878Ngvqzzy encounter procedureRADIO GENERAL [facility]ILLCREST HOSPComment on above:Recurrent pleural effusion on right [J90]Start: 12-20-2023 End: 30-47-1339Dviwujm encounter procedureRADIO GENERAL HILLCREST HOSPComment on above:Pleural effusionStart: 12-13-2023 End: 64-29-8087Fcioxcf encounter procedureRADIO GENERAL HILLCREST HOSPComment on above:Pleural effusion [J90]Pleural effusionStart: 12-04-2023 End: 23-38-0691Olyacgk encounter procedureRADIO GENERAL HILLCREST HOSPComment on above:Discharge follow upStart: 12-03-2023 End: 79-39-6343Dtvtamc encounter procedureRADIO GENERAL HILLCREST MOBComment on above:Pleural effusionStart: 12-01-2023 End: 22-21-4307DV Chest PA and LateralXR CHEST 2V FRONTAL/LAT Radiology Routine Surgery follow-up Expected: 12/01/2023, Expires: 12/23/2024[facility] Work Phone: Comment on above:Expected: 12/01/2023, Expires: 12/23/2024Start: 11-20-2023 End: 04-17-3908Zihvbecrj to same day surgery vxlcqd7711/20/2023 5:43 PM EDT - 11/20/2023 9:17 PM EDT Surgery Admitting [address] [place] [address] Ronaldo Flood MD, PhD [address] [employer] [address] [address] THORACOSCOPY WITH PLEURAL ABRASION AdmittingComment on above:THORACOSCOPY WITH PLEURAL ABRASIONStart: 11-20-2023 Subsequent hospital visit by xexxinvwf33/05/2024 5:43 PM EDT Hospital Encounter Admitting [address] [place] [address] Ronaldo Flood MD, PhD [address] [employer] [facility] [address] Pleural effusion [J90]AdmittingComment on above:Pleural effusion [J90]Start: 11-20-2023 End: 20-55-4719Caxplfgcpcit w/dx bx of lung infiltrate unilatrlTHORACOSCOPY W/ DIAGNOSTIC BIOPSY(IES) OF LUNG NODULE(S) OR MASS(ES) UNILATERAL Pleural effusion Encounter for other preprocedural examination 11/20/2023 5:43 PM [facility] CT & VASStart: 11-20-2023 End: 91-09-4564Fwufwmomdcnf w/pleurodesisTHORACOSCOPY WITH PLEURAL ABRASION Pleural effusion Encounter for other preprocedural examination 11/20/2023 5:43 PM [facility] CT & VASStart: 11-20-2023 End: 38-14-4135Dpzztgikf to same day surgery spajko2211/20/2023 11:30 AM EDT - 11/20/2023 3:04 PM EDT Surgery Admitting [address] [place], [place] Ronaldo Flood MD, PhD [address] [employer] [address] [address] THORACOSCOPY WITH PLEURAL ABRASION AdmittingComment on above:THORACOSCOPY WITH PLEURAL ABRASIONStart: 11-20-2023 Subsequent hospital visit by khyevkdll23/05/2024 11:30 AM EDT Hospital Encounter Admitting [address] [place] [address] Ronaldo Flood MD, PhD [address] [facility] [address] [address] Pleural effusion [J90]AdmittingComment on above:Pleural effusion [J90]Start: 11-20-2023 End: 76-53-5719Rtibgllwlrir w/dx bx of lung infiltrate unilatrlTHORACOSCOPY W/ DIAGNOSTIC BIOPSY(IES) OF LUNG NODULE(S) OR MASS(ES) UNILATERAL Pleural effusion Encounter for other preprocedural examination 11/20/2023 11:30 AM [facility] CT & VASStart: 11-20-2023 End: 69-79-7980Paimdzxfnfne w/pleurodesisTHORACOSCOPY WITH PLEURAL ABRASION Pleural effusion Encounter for other preprocedural examination 11/20/2023 11:30 AM [facility] CT & VASStart: 11-12-2023 End: 89-32-9977nnsrirhhfaJyrcwcxir MedicineComment on above:Pleural effusion [J90]Start: 11-12-2023 End: 87-66-8895Nxkejkm encounter procedureRadiologyComment on above:PRE-OP Pleural effusion [J90]-or- SM 11/20/23AnesthesiaStart: 11-12-2023 End: 94-61-2255ksqftaakeeNyvkdapvyoWgowxfc on above:PRE-OPStart: 10-28-2023 End: 12-70-6659lDAE in Platelet poor plasma by Coagulation assayACTIVATED PARTIAL THROMBOPLASTIN TIME Lab STAT Pleural effusion Encounter for other preprocedural examination Expected: 10/28/2023, Expires: 10/23/2024[facility] ClinicComment on above:Expected: 10/28/2023, Expires: 10/23/2024Start: 10-28-2023 End: 42-25-1905NEU W Auto Differential panel - BloodCOMPLETE BLOOD COUNT AND DIFFERENTIAL Lab STAT Pleural effusion Encounter for other preprocedural ex amination Expected: 10/28/2023, Expires: 10/23/2024[facility] ClinicComment on above:Expected: 10/28/2023, Expires: 10/23/2024Start: 10-28-2023 End: 14-12-9532Vifufdhewjiwk metabolic 2000 panel - Serum or PlasmaCOMPREHENSIVE METABOLIC PANEL Lab STAT Pleural effusion Encounter for other preprocedural examination Expected: 10/28/2023, Expires: 10/23/2024[facility] ClinicComment on above:Expected: 10/28/2023, Expires: 10/23/2024Start: 10-28-2023 End: 39-37-4862YWSVQMK BLOOD TYPECONFIRM BLOOD TYPE Blood Bank STAT Pleural effusion Encounter for other preprocedural examination Expected: 10/28/2023, Expires: 10/23/2024[facility] ClinicComment on above:Expected: 10/28/2023, Expires: 10/23/2024Start: 10-28-2023 End: 67-00-8807PGD COMPLETEECG COMPLETE ECG STAT Pleural effusion Encounter for other preprocedural examination Expected: 10/28/2023, Expires: 10/23/2024 [facility]Comment on above:Expected: 10/28/2023, Expires: 10/23/2024Start: 10-28-2023 End: 47-55-5425ONNQ DIFFUSION CAPACITY (DLCO)LUNG DIFFUSION CAPACITY (DLCO) PFT STAT Pleural effusion Encounter for other preprocedural examination Expected: 10/28/2023, Expires: 11/22/2024[facility] HospitalComment [facility] above:Expected: 10/28/2023, Expires: 11/22/2024Start: 10-28-2023 End: 52-25-9655SP Heart Perfusion W multiple states of exerciseNM CARDIAC PERF STRESS/EXERCISE Radiology STAT Pleural effusion Encounter for other preprocedural examination Expected: 10/28/2023, Expires: 11/22/2024[facility] HospitalComment on above:Expected: 10/28/2023, Expires: 11/22/2024Start: 10-28-2023 End: 02-18-0594XQ panel - Platelet poor plasma by Coagulation assayPROTHROMBIN TIME Lab STAT Pleural effusion Encounter for other preprocedural examination Expected: 10/28/2023, Expires: 10/23/2024[facility] HospitalComment on above: Expected: 10/28/2023, Expires: 10/23/2024Start: 10-28-2023 End: 95-47-6500ZLGSOZPEOR WITH DILATOR IF OBSTRUCTEDSPIROMETRY WITH DILATOR IF OBSTRUCTED PFT STAT Pleural effusion Encounter for other preprocedural ex amination Expected: 10/28/2023, Expires: 11/22/2024[facility] Work Phone: Comment on above:Expected: 10/28/2023, Expires: 11/22/2024Start: 10-28-2023 End: 04-19-4821NMNLUJLLEAPPWM AUREUS & MRSA SCREEN, PCR, NASALSTAPHYLOCOCCUS AUREUS & MRSA SCREEN, PCR, NASAL Lab STAT Pleural effusion Encounter for other preprocedural examination Expected: 10/28/2023, Expires: 01/27/2024[facility] ClinicComment on above:Expected: 10/28/2023, Expires: 01/27/2024Start: 10-28-2023 End: 46-76-4965CPBB AND SCREEN,30 DAYTYPE AND SCREEN,30 DAY Blood Bank STAT Pleural effusion Encounter for other preprocedural examination Expected: 10/28/2023, Expires: 10/23/2024[facility] ClinicComment on above:Expected: 10/28/2023, Expires: 10/23/2024Start: 10-28-2023 End: 35-70-5572ECQNZRUNSD, DIPSTICK ONLYURINALYSIS, DIPSTICK ONLY Lab STAT Pleural effusion Encounter for other preprocedural examination Expected: 10/28/2023, Expires: 10/23/2024[facility] ClinicComment on above:Expected: 10/28/2023, Expires: 10/23/2024Start: 10-28-2023 End: 53-06-5669FP Chest PA and LateralXR CHEST 2V FRONTAL/LAT Radiology STAT Pleural effusion Encounter for other preprocedural examination Expected: 10/28/2023, Expires: 11/22/2024[facility] ClinicComment on above:Expected: 10/28/2023, Expires: 11/22/2024Start: 10-24-2023 End: 73-35-4800Jakeqlz encounter anflypxwj42/09/2024 12:00 PM EDT Office Visit Thoracic Clinic [address] [place] [address] Ronaldo Flood MD, PhD [address] [facility] [address] [place] [address] pleural effusionThoracic ClinicComment on above: pleural effusionStart: 69-30-0661Lwdi Fast CultureAcid Fast CultureUniversity Hospitals St. John Medical Centertart: 59-29-7130Lzyw Fast CultureAcid Fast Culture [facility] Medical Centertart: 19-89-4019Scpxzvw Directive Discussion Advance Directive DiscussionSt. Anthony's Hospitalrt: 20-06-8931Sbsivheuad Health ScreeningBehavioral Health ScreeningSumma Health Barberton Campustart: 26-82-2114WAERK-19 Vaccine ()COVID-19 Vaccine ()[facility] Start: 55-25-8744Mxnih-19 Vaccine ()Covid-19 Vaccine ()[facility] Campustart: 38-15-1447Gakyswsdk vaccinationOhFostoria City Hospital Start: 02-11-2023 End: 23-30-9668Mfnyunr encounter yrlokwvjh71/28/2023 1:15 PM EDT Office Visit [facility] [address] [place], [place] [phone] Margie Edouard, DO [address] [place] [address] [facility] SurgeonsStart: 01-14-2023 End: 28-97-9922Qncbwht encounter zbwiddgsl81/31/2023 1:15 PM EDT Office Visit [facility] [address], [place] [phone] Margie Edouard, DO [address] [place] [address] [facility] SurgeonsStart: 11-19-2022 End: 80-83-8513Sjjpmpk encounter ycmjgskee34/05/2023 1:30 PM EDT Office Visit [facility] [address] [facility], [place] [phone] Margie Edouard, DO [address] [place] [address] [facility] SurgeonsStart: 10-08-2022 End: 38-29-9080Rjwomve encounter kehgmxoec37/24/2023 Office Visit Orthopedic Surgery Margie Edouard, DO [address] [place] [address] [facility] SurgeonsStart: 02-15-2022 Influenza vaccinationSequential Influenza Vaccine (#1)[facility]: 29-17-8329RGRTH-19 Vaccine (4 - Booster for Pfizer series)COVID-19 Vaccine (4 - Booster for Pfizer series)[facility]Start: 44-31-0442DFYYA-19 Vaccine (4 - Pfizer series)COVID-19 Vaccine (4 - Pfizer series)[facility]Start: 07-05-2021 COVID-19 Vaccine (5 - Booster)COVID-19 Vaccine (5 - Booster)[facility]Start: 78-36-7508Wvnbqnepi vaccinationSequential Influenza Vaccine (#1)[facility]Start: 07-01-2020 End: 10-17-0338Yqxqgq Visit07/01/2020 Office Visit Orthopedic Surgery Nena Huff, DO [address] [place] [address] [phone] [facility] SurgeonsStart: 95-74-1370Kjgyfesgx vaccination given Sequential Influenza Vaccine (#1)[facility]Start: 23-67-8595Owhbdkdgnm64/14/2020 Office Visit Orthopedic Surgery Karthik Calloway MD [address] [place] [address] [facility] Start: 72-20-8844Shhhnbuhw vaccination givenSEQUENTIAL INFLUENZA VACCINE (#1) [facility] HospitalStart: 44-20-1275Cdetcbixbjtrrr of herpes zoster vaccineZoster Vaccines (2 of 2)[facility] HospitalStart: 50-30-7719Bafkltou Vaccine (2 of 2)Shingrix Vaccine (2 of 2)[facility]: 53-15-0022Ajlme microalbumin profile DTaP,Tdap,Td Vaccine (1 - Tdap)[facility]ustart: 81-70-5048Pzfjdegvft 07/30/2017 Office Visit Orthopedic Surgery Karthik Calloway MD [address] [facility] [address] [place], [place] [id number] [facility] SurgeonsStart: 57-11-9345Egicduoyf vaccinationSEQUENTIAL INFLUENZA VACCINE (#1)[facility] Work Phone: Start: 21-35-4843SQWPTPKCYQ INFLUENZA VACCINE (#1) SEQUENTIAL INFLUENZA VACCINE (#1)[facility] Work Phone: Start: 04-66-6863Vuvq risk assessmentFalls Risk AssessmentGrant HospitalStart: 82-21-8929Rbtfaeerlild vaccinationPNEUMOCOCCAL VACCINE AGE 65+ (1 of 2 - PCV13)[facility] Work Phone: Start: 30-48-7478VRDDLGYQYJCI VACCINE AGE 65+ (1 of 2 - PCV13)PNEUMOCOCCAL VACCINE AGE 65+ (1 of 2 - PCV13)[facility] Work Phone: Start: 65-88-8971Rlxbytdqx B Vaccine (1 of 3 - Risk 3- dose series)Hepatitis B Vaccine (1 of 3 - Risk 3-dose series)[facility] Start: 92-63-9211HTY Vaccine (1 - 1-dose 60+ series)RSV Vaccine (1 - 1-dose 60+ series)[facility]ustart: 14-05-4936CHT Vaccine (1 - Risk 60-74 years 1-dose series)RSV Vaccine (1 - Risk 60-74 years 1-dose series)[facility] Campustart: 33-50-6809Dkgdfd vacc, scZOSTER VACCINEOhFostoria City Hospital Work Phone: Start: 88-47-1707Nzjhchmfh for malignant neoplasm of colonOhioHealthStart: 96-33-8546Yrihzhty ScreeningDiabetes ScreeningSumma Health Barberton Campustart: 62-16-8015Imzfbvcph for malignant neoplasm of colonSelect [facility] Start: 37-05-1160Bmxas panelLipid ScreeningSumma Health Barberton Campustart: 1969 Hepatitis A Vaccine (1 of 2 - Risk 2-dose series)Hepatitis A Vaccine (1 of 2 - Risk 2-dose series)[facility]: 26-00-7330Cfwxa microalbumin profile DTaP,Tdap,Td Vaccine (1 - Tdap)[facility]ustart: 24-27-7220Lcyune PCP Team Chronic Disease VisitAnnual PCP Team Chronic Disease VisitSumma Health Barberton Campustart: 48-28-9070Zjbqbke ScreeningAnxiety ScreeningSumma Health Barberton Campustart: 87-78-9269CQ Controlled (<130/80)BP Controlled (<130/80)[facility] Camp[facility]art: 1968 Depression ScreeningDepression ScreeningSumma Health Barberton Campustart: 1968 Hepatitis C antibody, confirmatory testHepatitis C ScreeningOhioHealthStart: 57-95-3311Qwplsozwy C screeningHepatitis C ScreeningOhioHealthStart: 1967 COVID-19 Vaccine (1 of 2)COVID-19 Vaccine (1 of 2)[facility]Start: 1963 Adolescent depression screening assessmentDepression Screening (PHQ9)[facility] Start: 49-02-8661Sfjobfmxfk screening using PHQ-9 (Patient Health Questionnaire 9) scoreOhioHealthStart: 09-86-5077VKQNJ-19 Vaccine (1)COVID-19 Vaccine (1) [facility]Start: 76-94-7653Nbqmcpv and physical examination, annual for [facility] VisitOhioHealthStart: 09-27-1954Medicare Wellness Visit Medicare Wellness VisitOhioHealthStart: 84-43-7907UenjykyaiaxLDRLEIJSCTK [facility] Work Phone: Start: 37-54-1973Xhbd risk assessmentFalls Risk AssessmentOhioHealthStart: 55-76-3545Zqzisolje C antibody, confirmatory test HEPATITIS C SCREENINGOhioHealthStart: 18-05-3034Rsnxieef specific antigen measurementPSA LevelOhioHealthStart: 56-74-4784Ntkrlghxz for malignant neoplasm of colonOhioHealthStart: 48-90-3940YLMRKLP EVERY 10 YRTETANUS EVERY 10 YR [facility] Work Phone: Start: 1950 End: 13-35-8210OYLFSGCHT C SCREENINGHEPATITIS C SCREENINGGrant Hospital Work Phone: Start: 65-76-9959Tdpskvkma colonoscopyCOLONOSCOPY [facility] Work Phone: Start: 1950 End: 12-00-2301Ncdmqmn vaccinationOhioHealthAlbumin [Mass/volume] in Body fluid ALBUMIN, BODY FLUID Lab Routine Pleural effusion Ordered: 07/20/2024[facility] ClinicComment on above:Ordered: 07/20/2024lbumin [Mass/volume] in Body fluid ALBUMIN, BODY FLUID Lab Routine Pleural effusion Ordered: 07/20/2024[facility] ClinicComment on above:Ordered: 07/20/2024ODY FLUID CELL COUNTBODY FLUID CELL COUNT Lab Routine Pleural effusion Ordered: 07/20/2024[facility] ClinicComment on above:Ordered: 07/20/2024omprehensive metabolic 1999 panel - Serum or Plasma [facility] HospitalComprehensive metabolic 1999 panel - Serum or PlasmaAultman HospitalCT Chest W contrast [facility] End: 56-11-7776HH Chest W contrast IVCT CHEST W IVCON Radiology Routine Interstitial pulmonary disease (HCC) 1 Occurrences starting 03/17/2024 until 04/16/2025[facility] Work Phone: Comment on above:1 Occurrences starting 03/17/2024 until 04/16/2025T Chest W contrast IVCT CHEST W IVCON Radiology Routine Interstitial pulmonary disease (HCC) 03/17/2024 4:02 PM EDTCleveland Clinic End: 63-64-4610IH Chest WO contrastCT CHEST WO IVCON Radiology Routine Pleural effusion Lung nodule 1 Occurrences starting 05/18/2024 until 06/17/2025[facility] ClinicComment on above:1 Occurrences starting 05/18/2024 until 06/17/2025 End: 42-68-5725JQ Small bowel W contrast PO and W contrast IVCT ENTEROGRAPHY W IVCON Radiology Routine Other ascites Generalized abdominal pain 1 Occurrences starting 10/21/2024 until 11/20/2025[facility] ClinicComment on above:1 Occurrences starting 10/21/2024 until 11/20/2025 End: 39-64-9081UfvxmsesozdllroeUOVY Cardiology Routine Pericarditis, unspecified chronicity, unspecified type 1 Occurrences starting 03/17/2024 until 03/17/2025 [facility]Comment on above:1 Occurrences starting 03/17/2024 until 03/17/2025 End: 81-17-7939ZHO DIAGNOSTICEGD DIAGNOSTIC Endoscopy Routine Diarrhea, unspecified type 1 Occurrences starting 04/20/2024 until11/04/[address] [place] [address] Work Phone: Comment on above:1 Occurrences starting 04/20/2024 until 04/20/2025 End: 59-45-5342ZWX DIAGNOSTICEGD DIAGNOSTIC Endoscopy Routine Esophageal dysphagia 1 Occurrences starting 08/24/[address] [place] [address] Comment on above:1 Occurrences starting 08/24/2024 until 08/24/2025FAT, FECAL QUALFAT, FECAL QUAL Lab Routine Other ascites Generalized abdominal pain Ordered: [address] [place] [address] Work Phone: Comment on above:Ordered: 10/21/2024 End: 27-39-4607Zhqoiklg sigmoidoscopy studyCOLONOSCOPY DIAGNOSTIC Endoscopy Routine Diarrhea, unspecified type 1 Occurrences starting 04/20/[address] [place], [place] [address]Comment on above:1 Occurrences starting 04/20/2024 until 04/20/2025FLOW CYTOMETRY FOR LEUKEMIA/LYMPHOMA (FCLL) PERFORMABLEFLOW CYTOMETRY FOR LEUKEMIA/LYMPHOMA (FCLL) PERFORMABLE Lab Routine Pleural effusion 05/18/2024 12:52 PM [facility]UKEMIA/LYMPHOMA (FCLL) PERFORMABLEFLOW CYTOMETRY FOR LEUKEMIA/LYMPHOMA (FCLL) PERFORMABLE Lab Routine Pleural effusion Pleuritis Lymphocytic colitis Pericardial effusion (noninflammatory) Interstitial pulmonary disease (HCC) Ordered:06/22/2024 [facility]Comment on above:Ordered: 06/22/2024Lactate dehydrogenase [Enzymatic activity/volume] in Body fluidLACTATE DEHYDROGENASE, BODY FLUID Lab Routine Pleural effusion Ordered: [address] [place] [address] Work Phone: Comment on above:Ordered: 07/20/2024Lactate dehydrogenase [Enzymatic activity/volume] in Body fluidLACTATE DEHYDROGENASE, BODY FLUID Lab Routine Pleural effusion Ordered: [address] [place] [address] Comment on above:Ordered: 07/20/2024 End: 18-19-4671Sbqsi stiffness by US.transient elastographyUS ELASTOGRAPHY LIVER Radiology Routine Hepatomegaly 1 Occurrences starting 11/13/2024 until 026[facility]hillComment on above:1 Occurrences starting 11/13/2024 until 06/29/2026Liver stiffness by US.transient elastographyUS ELASTOGRAPHY LIVER Radiology Routine Hepatomegaly 11/23/2024 3:05 PM EDTCleveland ClinicMANUAL DIFFERENTIAL, BODY FLUIDMANUAL DIFFERENTIAL, BODY FLUID Lab Routine Pleural effusion 05/18/2024 12:52 PM [facility] End: 71-02-1250ZSRPHY OXIDE, EXHALEDNITRIC OXIDE, EXHALED PFT Routine Chronic cough Pleural effusion 1 Occurrences starting 01/06/2024 until 02/04/2025 [facility] Work Phone: Comment on above:1 Occurrences starting 01/06/2024 until 02/04/2025pH of Body fluidPH BODY FLUID Lab Routine Pleural effusion Ordered: 07/20/2024[facility] ClinicComment on above:Ordered: 07/20/2024PH PLEURAL FLUID (FOR USE OUTSIDE OF [facility])PH PLEURAL FLUID (FOR USE OUTSIDE OF [facility]) Lab Routine Pleural effusion Ordered: 07/20/2024[facility] ClinicComment on above:Ordered: 07/20/2024Protein [Mass/volume] in Body fluidPROTEIN, BODY FLUID Lab Routine Pleural effusion Ordered: 07/20/2024[facility] ClinicComment on above:Ordered: 07/20/2024Protein [Mass/volume] in Body fluidPROTEIN, BODY FLUID Lab Routine Pleural effusion Ordered: 07/20/2024[facility] ClinicComment on above:Ordered: 07/20/2024Protein/Creatinine [Mass Ratio] in UrinePROTEIN / CREATININE RATIO Lab Routine Elevated serum creatinine 10/15/2024 10:09 AM EDT [facility] Work Phone: RF Guidance for transjugular biopsy of Liver-- W contrast IVIR TRANSJUGULAR LIVER BX W/PRESS Radiology Routine Elevated alkaline phosphatase level Ordered: 12/22/2024[facility] Work Phone: comment on above:Ordered: 12/22/2024 End: 19-60-4534KFI MINUTE WALKSIX MINUTE WALK PFT Routine Pleural effusion Encounter for other preprocedural examination 1 Occurrences starting 10/28/2023 until 11/26/2024[facility] ClinicComment on above:1 Occurrences starting 10/28/2023 until 11/26/2024 End: 54-96-9455VENAVZGIBT WITH DILATOR IF OBSTRUCTEDSPIROMETRY WITH DILATOR IF OBSTRUCTED PFT Routine Chronic cough Pleural effusion 1 Occurrences starting 01/06/2024 until 5CMiami [facility] HospitalComment on above:1 Occurrences starting 01/06/2024 until 02/04/2025SPIROMETRY WITH DILATOR IF OBSTRUCTED SPIROMETRY WITH DILATOR IF OBSTRUCTED PFT Routine Chronic cough Pleural effusion 03/17/2024 8:07 [facility] Work Phone: comment on above:Release Upon Ordering for 1 Occurrences starting 04/28/2024, 1 completedTissue Pathology biopsy report [facility] Work Phone: Comment on above:Release Upon Ordering for 1 Occurrences starting 09/25/2024, 1 completedUA DIP, URINE (POC)UA DIP, URINE (POC) Lab Routine Screening for genitourinary condition 1 Occurrences starting [address] [place] [address] Work Phone: comment on above:1 Occurrences starting 10/15/2024 End: 52-09-2648CU Abdomen RUQUS ABD RIGHT UPPER QUADRANT Radiology Routine Elevated alkaline phosphatase level 1 Occurrences starting 10/15/[address] [place] [address] Work Phone: Comment on above:1 Occurrences starting 10/15/2024 until 11/14/2025US Abdomen RUQUS ABD RIGHT UPPER QUADRANT Radiology Routine Elevated alkaline phosphatase level 10/23/2024 2:18 PM [facility] Work Phone: End: 30-13-3770ZA Abdomen RUQUS ABD RIGHT UPPER QUADRANT Radiology Routine Hepatomegaly 1 Occurrences starting 11/13/[address] [place] [address] on above:1 Occurrences starting 11/13/2024 until 12/13/2025US Abdomen RUQUS ABD RIGHT UPPER QUADRANT Radiology Routine Hepatomegaly 11/23/2024 3:05 PM [facility] Work Phone: us Chest limitedUS CHEST (POC) H23 USE ONLY Imaging Diagnostic Routine Pleural effusion Pleuritis Lymphocytic colitis Pericardial effusion (noninflammatory) Interstitial pulmonary disease (HCC) Ordered: [address] [place] [address] Work Phone: Comment on above:Ordered: 06/22/2024[facility] End: 22-56-1920UP Lower extremity artery - bilateralPVR LEG [facility] Vascular Lab Routine Extremity cyanosis 1 Occurrences starting 11/20/2024 until11/20/2025 [facility]:1 Occurrences starting 11/20/2024 until 11/20/2025 End: 91-97-6419IE Lower extremity veins - bilateralUS LEG VEIN DVT [facility] Vascular Lab Routine Extremity cyanosis 1 Occurrences starting 11/20/2024 until 6CMiami Valley HospitalComment on above:1 Occurrences starting 11/20/2024 until 11/20/2025 End: 94-65-3191DW Vein - bilateralUS VENOUS INCOMPETENCY [facility] Vascular Lab Routine Extremity cyanosis 1 Occurrences starting 11/20/[address] [place] [address] Work Phone: Comment on above:1 Occurrences starting 11/20/2024 until 11/20/2025 End: 41-97-0079MI.doppler Abdominal vesselsUS ABD LIVER VASCULAR Radiology Routine Other ascites 1 Occurrences starting 02/17/2025 until 03/19/2026 [facility] Work Phone: comment on above:1 Occurrences starting 02/17/2025 until 03/19/2026 End: 62-71-3172AG.doppler Unspecified body regionUS DOPPLER COMPLETE Radiology Routine Other ascites 1 Occurrences starting 02/17/2025 until 03/19/2026 [facility]:1 Occurrences starting 02/17/2025 until 03/19/2026 End: 19-49-6251LL Chest PA and LateralXR CHEST 2V FRONTAL/LAT Radiology Routine Follow-up exam 1 Occurrences starting 11/29/[address] [place] [address] Work Phone: Comment on above:1 Occurrences starting 11/29/2023 until 12/28/2024XR Chest PA and LateralXR CHEST 2V FRONTAL/LAT Radiology Routine Surgery follow-up 11/29/2023 2:19 PM [facility] Work Phone: XR Chest PA and LateralXR CHEST 2V FRONTAL/LAT Radiology Routine Follow-up exam 12/03/2023 12:25 PM [facility] Work Phone: XR Chest PA and LateralXR CHEST 2V FRONTAL/LAT Radiology Routine Pleural effusion 12/13/2023 1:18 PM [facility] Work Phone: XR Chest PA and LateralXR CHEST 2V FRONTAL/LAT Radiology Routine Pleural effusion 12/20/2023 1:13 PM [facility] Work Phone: End: 39-46-9765BS Chest PA and LateralXR CHEST 2V FRONTAL/LAT Radiology Routine Pleural effusion 1 Occurrences starting 01/06/2024 until 02/04/2025[facility] Work Phone: Comment on above:1 Occurrences starting 01/06/2024 until 02/04/2025XR Chest PA and LateralXR CHEST 2V FRONTAL/LAT Radiology Routine Recurrent pleural effusion on right 01/06/2024 1:09 PM [facility] Work Phone: End: 74-41-3105JU Chest PA and LateralXR CHEST 2V FRONTAL/LAT Radiology Routine Pleural effusion 1 Occurrences starting 02/04/[address] [place] [address] Work Phone: Comment on above:1 Occurrences starting 02/04/2024 until 03/05/2025XR Chest PA and LateralXR CHEST 2V FRONTAL/LAT Radiology Routine Chronic bronchitis, unspecified chronic bronchitis type (HCC) 03/17/2024 8:41 AM [facility] Work Phone: End: 74-98-5479FD Chest PA and LateralXR CHEST 2V FRONTAL/LAT Radiology Routine Pleural effusion 1 Occurrences starting 10/28/2024 until 11/26/2025[facility] Work Phone: Comment on above:1 Occurrences starting 10/28/2024 until 11/26/2025[facility] Immunizations Immunization DateImmunizationNotesCare PzvzfvdmOayvefii74-99-3140tpqhrgvbk, high dose seasonal, preservative-freeJose Antonio oHpper MD Work Phone: [place] Fnoiuo39-78-1588rbxrktnuz, seasonal, injectableJose Antonio Hopper MD Work Phone: [place] Nrfhoj22-04-8243fkizamadmzq syncytial virus (RSV) vaccine, adjuvanted (AREXVY)Jose Antonio Hopper MD Work Phone: [place] Bplkhi98-39-8687hmdwkyj toxoid, reduced diphtheria toxoid, and acellular pertussis vaccine, adsorbedJose Antonio Hopper MD Work Phone: [place] Rtiirs43-80-8432kjtpupxpp virus vaccine, unspecified formulationJose Antonio Hopper MD Work Phone: [place] Chqacz45-91-3596ZWLAM-14 mRNA, Comirnaty (Pfizer)[facility]03-30-2021COVID-19 original vaccine, age 12+ yr, monovalent (PFIZER-BIONTECH - PURPLE TOP)Jose Antonio Hopper MD Work Phone: [place] Zcvgkz94-03-6167WDAOV-26 mRNA, Comirnaty (Pfizer)DO [facility] Work Phone: [facility]03-08-2021COVID-19 original vaccine, age 12+ yr, monovalent (PFIZER-BIONTECH - PURPLE TOP) Jose Antonio Hopper MD Work Phone: [place] Fxwxym10-87-9177ESFWD-15 mRNA, Comirnaty (Savor)DO [facility] Work Phone: [facility]11-23-2020influenza virus vaccine, split virus (incl. purified surface antigen)Yuli Mariscal Other [employer] Other [id number] virus vaccine, unspecified formulationDO [facility] Work Phone: [facility]11-23-2020Seasonal trivalent influenza vaccine, adjuvanted, preservative freeJose Antonio Hopper MD Work Phone: [place] Lodcmn71-09-0376kehhayj and diphtheria toxoids, adsorbed, preservative free, for adult use (5 Lf of tetanus toxoid and 2 Lf of diphtheria toxoid)Yuli Mariscal Other [facility]03-16-2019zoster vaccine recombinantJose Antonio Hopper MD Work Phone: [place] Shuyyh36-98-5697berswkp and diphtheria toxoids, adsorbed, preservative free, for adult use (5 Lf of tetanus toxoid and 2 Lf of diphtheria toxoid)Yuli Mariscal Other [facility]08-20-2018 pneumococcal polysaccharide vaccine, 23 valentBenjelly Mariscal Other [facility]06-12-2017 pneumococcal conjugate vaccine, 13 valentBelenard Mariscal Other [facility] Payers DatePayer CategoryPayerPolicy [id number] (Managed Care)AETNA MEDICARE [id number] 2022MedicaidAETNA MEDICARE ADVANTAGE [id number] 2016MedicareAETNA MANAGED MEDICARE AETNA MEDICARE PLAN (PPO) xxxxxxxx 2016-Presentxxxxxxxx [id number] 2016MedicareAETNA MANAGED MEDICARE AETNA MEDICARE PLAN (PPO) [id number] 2016Medicare [id number] 2016Medicare PPOAETNA MEDICARE PLAN (PPO) Member Subscriber Plan / Payer (Effective 2016-Present) Name: Sav Raymundo Relation to Subscriber: Self Name: Sav Raymundo Payer ID: 1 (NAIC) Type: Not on file Address: [address] [place] [id number] 1960Medicare [id number] 2.16.840.1.172565.3.57[id number] 2.16.840.1.259715.3.57[id number] 2.16.840.1.154327.3.57[id number] 2.16.840.1.768900.3.57[id number] 2.16.840.1.791842.3.57[id number] 2.16.840.1.593891.3.57[id number] 2.16.840.1.751207.3.57[id number] 2.16.840.1.593884.3.57[id number] 2.16.840.1.476813.3.57[id number] 2.16.840.1.039566.3.57[id number] 2.16.840.1.266523.3.57[id number] 2.16.840.1.822955.3.57[id number] 2.16.840.1.604121.3.57[id number] 2.16.840.1.136299.3.57[id number] 2.16.840.1.575297.3.57[id number] 2.16.840.1.110179.3.57[id number] 2..840.1.638134.3.57[id number] 2.16.840.1.337812.3.579.2.1259MedicareMEBL4CPC 2.16.840.1.888005.3.249.13Unknown [id number] 2.16.840.1.7[id number] 2.16.840.1.8[id number] 2.16.840.1.751604.3.579.2.531 [id number] 2.16.840.1.402179.3.579.2.531 Social History DateTypeDetailFacilityStart: 07-30-2017 End: 10-49-4639Fwkzhmu smoking status NHISNever smokerGrant Hospital Work Phone: Start: 66-77-1457Ahs Assigned At BirthNot on file [facility] Work Phone: Start: 07-01-2019 End: 00-11-9409Kcnqhxk intakeCurrent drinker of alcohol (finding)[facility] Start: 07-20-2020 End: 33-39-5763Zdmxynw use and exposureNever usedOhioHealthStart: 08-18-2022 End: 19-15-7138Abjglago to SARS-CoV-2 (event)Not sureOhioHealthStart: 08-28-2022 End: 00-42-0699Jvxzieu of Social functionSelect Medical Specialty Hospital [facility] Work Phone: Start: 08-28-2022 End: 37-99-1239Uadowzd use panelSelect Medical Specialty Hospital - [facility] Work Phone: Start: 74-21-1497Snu [facility] Hospitaltart: 12-05-2020 End: 68-89-4881Eqvqttvd Score (1-100), lower number is lower riskNot on file [facility] Healths the electric, gas, oil, or water company threatened to shut off services in your home in past 12MoNCherrington Hospital Work Phone: (I/We) worried whether (my/our) food would run out before (I/we) got money to buy more.Never trueSumma Health Barberton Campustart: 01-15-2024 Alcohol Commentsocially, no drink since [facility] ClinicStart: 09-11-2024 SexMale (finding)[facility] Centertart: 50-99-1828Qobywc identityIdentifies as male gender (finding)[facility] Medical Equipment Procedure CodeEquipment CodeEquipment Original TextEquipment IdentifierDates Cement 1 X 40 Palacos Bone Single - [id number]: 36-62-6753Yatk Short Cemented Persona - [id number]: 77-48-6108Pvdh Sz F Tib 5deg Nonpor Lt Persona - [id number] Start: 67-09-0208Vsamdem Sz9 Lt Nrw Ps Cmt Ccr Persona - [id number]: 83-47-4648Fpxotuj 32mm All Poly Persona - [id number]: 50-81-1545Hlyfbsein Surf Ef 6-9 14mm Lt Ps Vivacit-E Persona - Vff3715Nedkc: 43-86-3099Pzot Short Cemented Persona - [id number]: 54-82-8829Bktvhao 32mm All Poly Vivacit-E - [id number]: 07-92-1163Bpxpfifnj Surf 14mm 6-9ef Rt Cps Ve Persona - [id number]: 16-19-9331Xadlyln Hv With Gentamicin CementStart: 64-43-7785Uybf Sz F Tib 5deg Nonpor Rt Persona - [id number]: 51-14-5649Bmvotvh Sz9 Rt Nrw Ps Cmt Ccr Persona - [id number]: 24-92-1930Cmkctp 1 X 40 Palacos Bone Single - [id number]: 14-41-7628Ypyy Short Cemented Persona - Lqb2544Fthqk: 08-23-2014 Stem Sz F Tib 5deg Nonpor Lt Persona - [id number]: 72-45-7789Qsvlfhw Sz9 Lt Nrw Ps Cmt Ccr Persona - [id number]: 97-92-1797Rypdeps 32mm All Poly Persona - Fih8949Gefkw: 42-68-7591Lsgsvutmi Surf Ef 6-9 14mm Lt Ps Vivacit-E Persona - Ogg2989Hvgod: 26-31-3880Ptkz Short Cemented Persona - [id number]: 06-25-2016 Patella 32mm All Poly Vivacit-E - [id number]: 43-89-2457Ddebgahmx Surf 14mm 6-9ef Rt Cps Ve Persona - [id number]: 02-31-6726Iaocalf Hv With Gentamicin CementStart: 81-97-8139Wohi Sz F Tib 5deg Nonpor Rt Persona - [id number]: 47-91-1184Pzmhpzp Sz9 Rt Nrw Ps Cmt Ccr Persona - [id number]: 06-25-2016 Cement 1 X 40 Palacos Bone Single - [id number]: 34-58-8367Tpjt Short Cemented Persona - Fsg1970Mzdtj: 63-05-3149Wknq Sz F Tib 5deg Nonpor Lt Persona - [id number] Start: 62-33-9805Bijcnrk Sz9 Lt Nrw Ps Cmt Ccr Persona - Xyr5400Dzeql: 13-97-5873Nyafcdh 32mm All Poly Persona - Gdt1351Pthsb: 69-84-3162Djveauuzg Surf Ef 6-9 14mm Lt Ps Vivacit-E Persona - [id number]: 22-14-1462Bcuh Short Cemented Persona - [id number]: 48-81-5700Eradfmh 32mm All Poly Vivacit-E - [id number]: 14-63-7005Bsdsvnnut Surf 14mm 6-9ef Rt Cps Ve Persona - [id number]: 51-97-1449Aymjgkr Hv With Gentamicin CementStart: 82-49-6397Iaud Sz F Tib 5deg Nonpor Rt Persona - [id number]: 67-79-9367Fcgrgfc Sz9 Rt Nrw Ps Cmt Ccr Persona - [id number]: 57-54-8608Fiodkh 1 X 40 Palacos Bone Single - [id number]_ejkHrhai: 91-13-4738Fkov Short Cemented Persona - [id number]_eui Start: 98-71-5573Pzfs Sz F Tib 5deg Nonpor Lt Persona - [id number]_lfqAchga: 71-17-1548Shomxkp Sz9 Lt Nrw Ps Cmt Ccr Persona - [id number]_lxkOhuep: 52-54-0938Hnvaxzd 32mm All Poly Persona - [id number]_gynLbcwi: 08-23-2014 Articular Surf Ef 6-9 14mm Lt Ps Vivacit-E Persona - [id number]_hscLwaga: 49-82-7823Ihht Short Cemented Persona - [id number]_pdwJzlag: 06-25-2016 Patella 32mm All Poly Vivacit-E - [id number]_ptaGucwh: 89-11-5925Npevryxyr Surf 14mm 6-9ef Rt Cps Ve Persona - [id number]_colFrsqs: 49-79-9032Uyzjups Hv With Gentamicin Kxxbga588870_vniDwoex: 64-41-9997Wtwx Sz F Tib 5deg Nonpor Rt Persona - [id number]_tlbVbbik: 18-33-0129Czrmnay Sz9 Rt Nrw Ps Cmt Ccr Persona - [id number]_aixSxbfs: 06-25-2016 Goals DatePatient GoalDesired Activity/StatePersonal health goal Functional Status IuxtFxneqgiajgDbziptQzdtktta35-95-9149Goe you deaf, or do you have serious difficulty hearingNo 12/26/2023 4:30 PM EDT Rojas Cline RN [facility] 30-45-7291Lia you blind, or do you have serious difficulty seeing, even when wearing glassesNo 12/26/2023 4:30 PM EDT Rojas Cline RN [facility] 43-89-1698Sh you have serious difficulty walking or climbing stairsNo 12/26/2023 4:30 PM EDT Rojas Cline RN [facility]07-11-2024Do you have difficulty dressing or bathingNo 12/26/2023 4:30 PM EDT [facility] RN [facility] HospitalIrzwdy33-28-3616Ixfjunl of a physical, mental, or emotional condition, do you have difficulty doing errands alone such as visiting a physician's office or shoppingNo 12/26/2023 4:30 PM EDT Rojas Cline RN [facility] Mental Status FfleYqntubqaprLncisxAovwcxrz59-51-0842Wfvvelz of a physical, mental, or emotional condition, do you have serious difficulty concentrating, remembering, or making decisionsNo 12/26/2023 4:30 PM EDT Rojas Cline RN [facility] Clinical Notes 08-28-2022 to 04-16-2025 Note Date & YizbAtbbLoensxul21-65-3785 NoteMount Carmel Health System10-31-2025 NoteMount Carmel Health System10-29-2025 History of Present illness Narrative* Jamel Lubin, GERALDO - 04/14/2025 4:15 PM EDT Images from the original note were not included. Subjective Patient ID: Willie Raymundo is a 75 y.o. male who presents for Nail care/Wound check (Willie Raymundo is a 75 y.o. male. Established patient relates he was in [facility] for 6 days 04/02/2025,Cellulitis left [...] lower extremity. Symptomatic onychodystrophy/mycosis multiple digits. Plan: [place] agreement for conservative and palliative nail care [...] understanding. Jamel Lubin DPM documented in this [facility]10-29-2025 Instructions* Patient Instructions* Jamel Lubin DPM - 04/14/2025 4:15 PM EDT Wound care measures as noted documented in this [facility]10-24-2025 Evaluation note* Diagnosis Onset Date Resolution Status Admit Date Anasarca acuteOctober 2024 9:31amAnemiaacuteOctober 2024 9:31amCellulitis acuteOctober 2024 9:31amChronic kidney diseaseacuteOctober 2024 9:31amCirrhosisacuteOctober 2024 9:31amEsophageal varicesacuteOctober 2024 9:31amPrimary hypertensionacuteOctober 2024 9:31am [facility] Work Phone: [phone] NoteMount Carmel Health System10-09-2025 History of Present illness Narrative* Jamel Lubin, JESSIEM - 03/25/2025 11:15 AM EDT Images from [...] 5 days, followed by gradual transition to [facility] slip[facility] with custom fabricated crest pad. [...] understanding. Jamel Lubin DPM documented in this encounterSouthPointe HospitalCfeltujlzg36-65-1794 Instructions* Patient Instructions* Jamel Lubin DPM - 03/25/2025 11:15 AM EDT As noted documented in this encounterSouthPointe HospitalKhplnomhmx53-24-8581 NoteMount Carmel Health System10-01-2025 History of Present illness Narrative* Jamel Lubin, GERALDO - 03/17/2025 10:15 AM EDT Images from [...] understanding. Jamel Lubin DPM documented in this encounterSouthPointe HospitalRzlkqsonwr84-60-8491 NoteMount Carmel Health System09-26-2025 History of Present illness Narrative* Jamel Lubin [...] and oriented. Pleasant disposition. Independently ambulatory wearing Skechers slip-on footwear. Accompanied by his spouse, Eden. [...] understanding. Jamel Lubin DPM documented in this encounterSouthPointe HospitalSxsjefrxuk14-47-1419 History of Present illness Narrative* Zabrina Suarez MD - 02/25/2025 10:20 AM EDT [facility] NEPH[facility] HYPERTENSION [facility] SERVICE DATE: [...] 10 mg by mouth once daily. calcium jpg-tnp-E1-Zn-coping machine operator-kian 250 mg-40 mg- 125 unit-3.75mg tab [...] Jose Antonio Hopper MD documented in this encounterSelect Medical [facility]09-11-2025 NoteMount Carmel Health System09-05-2025 History of Present illness Narrative* Nita Damon [...] PATIENT PRESENTS WITH AN IMPLANTABLE OR ATTACHED BRAND SPECIALIST: No RADIOLOGY DEPARTMENT: Ultrasound PERIPHERAL IV DATA: Not applicable SIGNED BY: RT Lolly(R) February 19, 2025 2:26 PM documented in this encounterSelect Medical Specialty [facility]09-05-2025 NoteMount Carmel Health System08-12-2025 History of Present illness Narrative* Jose Antonio [...] 10 mg by mouth once daily. calcium xsj-wev-Y3-Zn-coping machine operator-kian 250 mg-40 mg- 125 unit-3.75mg tab [...] diaphragmatic excursion. Lungs clear to auscultation. Heart: [place] normal. Precordium quiet. RRR. Normal HS with [...] 2025 TIME: 1:39 PM documented in this encounterSelect Medical [facility]ty [facility]08-12-2025 Evaluation note* Diagnosis Metabolic encephalopathy- Primary Stage 3a chronic kidney disease (HCC) Primary hypertension Unspecified essential hypertension Lymphocytic colitis Other and unspecified noninfectious gastroenteritis and colitis Generalized edema Edema Orthostatic hypotension Cramp and spasm Urge incontinence Elevated alkaline phosphatase level Other nonspecific abnormal serum enzyme levels documented in this encounter [facility]07-28-2025 History of Present illness Narrative* Triston Riggs MD - 01/11/2025 9:30 AM EDT Images from the original note were not included. [facility] CC: Persistent RIGHT pleural effusion Sav Raymundo is a 74 year old male sent by Dr. STEPHANE Cesar MD and Ronaldo Flood MD, PhD for evaluation of persistent RIGHT pleural effusion. My final recommendations will be communicated to the requesting health care provider by way of the shared medical record for internal providers or lettervia the [employer] for external providers. Assessment and Plan 1. [...] 10 mg by mouth once daily. calcium qjh-twl-H2-Zn-coping machine operator-kian 250 mg-40 mg- 125 unit-3.75mg tab [...] 0.2 11/12/2024 Abs Neut 7.03 11/12/2024 Abs Greene 0.67 11/12/2024 Abs Eosin <0.03 11/12/2024 Abs [...] 36 % 39 80 (H) 80 (H) Greene%, BF % 6 Macro%, BF 64 - [...] with more than 50% of the total mccf-xw-lvrt time of the visit in counseling / coordination of care. Triston Riggs M.D. Staff, Interventional Pulmonology. Pulmonary, Allergy & Critical Care Medicine [facility] documented in this encounterSelect Medical Specialty [facility]07-28-2025 NoteMount Carmel Health System07-25-2025 History of Present illness Narrative* Patricia Coello [...] PATIENT PRESENTS WITH AN IMPLANTABLE OR ATTACHED BRAND SPECIALIST: No RADIOLOGY DEPARTMENT: General X-ray: Exam(s) Completed: Chest X-Ray PERIPHERAL IV DATA: Not applicable SIGNED BY: RT [place](R) January 08, 2025 12:43 PM documented in this encounterSelect Medical Specialty [facility]07-25-2025 NoteMount Carmel Health System07-08-2025 Instructions* Patient Instructions* Marlyn Hooper APRN.SET UP MECHANIC AUTOMATIC LINE - 12/22/2024 7:12 PM EDT We discussed [...] procedure, and you can schedule it at [place] or the main campus by calling [phone]. - Additional blood work has been ordered to rule out autoimmune or viral causes of liver damage. You can complete this at [facility] or another lab location. We discussed your kidney health: - Your creatinine levels, which indicate kidney function, are continuing to rise. I recommend seeing a curbstone setter (kidney specialist) to evaluate this further and assess your current use of water pills (torsemide). I have placed a referral for nephrology, and you can schedule an appointment by calling [phone]. Virtual visits may also be an option. We discussed your fluid retention and current medication regimen: - Your fluid retention is being managed with torsemide, but the dosing schedule is complex and may need adjustment. A curbstone setter can help optimize this to protect your [...] any new concerns, and contact me through [employer] if needed. - I will review the biopsy and blood work results once they are available and contact you with nextsteps. Please let me know if you have any questions or concerns in the meantime. documented in this encounterSelect Medical Specialty [facility]07-08-2025 History of Present illness Narrative* Marlyn Hooper APRN.CNP - 12/22/2024 6:00 PM EDT VIRTUAL VISIT PROGRESS NOTE This is a virtual visit using [employer] Zoom Video Visit. It required patient- provider interaction for the medical decision making as documented below. I have communicated my name and active licensure. The patient's identity and physical location wereverified at the time of this visit. Either the patient or their legal sales representative raw fibers has been informed of the risks and [...] despite evaluation by rheumatology, pulmonology, gastroenterology, and llama farmer, as well as recent vascular testing. The [...] He is not currently followed by a curbstone setter, but his creatinine has been rising. An [...] 50-60 lbs lost since his hospitalization at [facility] on 12/[facility]/2022 for lower extremity swelling, with [...] 10 mg by mouth once daily. calcium elz-ntq-E8-Zn-coping machine operator-kian 250 mg-40 mg- 125 unit-3.75mg tab [...] isnot currently under the care of a curbstone setter. - Referral to nephrology for further evaluation and management. - Provided patient with scheduling number for nephrology appointment. - Advised patient to monitor kidney function closely. I spent a total of 45 minutes on the date of the service which included preparing to see the patient, [id number] patient care, completing clinical documentation, counseling and educating the patient/family/caregiver, ordering medications, tests, or procedures, and communicating results to the raquel ent/family/caregiver Marlyn Hooper APRN.SET UP MECHANIC AUTOMATIC LINE documented in this encounterSelect Medical [facility]07-08-2025 NoteMount Carmel Health System07-01-2025 History of Present illness Narrative* Jose Antonio [...] 10 mg by mouth once daily. calcium vse-mmi-F3-Zn-coping machine operator-kian 250 mg-40 mg- 125 unit-3.75mg tab [...] diaphragmatic excursion. Lungs clear to auscultation. Heart: Roscoe normal. Precordium quiet. RRR. Normal HS with [...] - SUCRALFATE 1 GRAM TABLET Jose Antonio Isakov, MD SIGNATURE: Jose Antonio Hopper MD DATE: December 15, 2024 TIME: 11:34 AM documented in this encounterSelect Medical [facility]06-09-2025 Telephone encounter Note * Telephone Encounter - Jahaira Wood - 11/23/2024 1:48 PM EDT Received missed visit notes 11/20/24 and 11/10/24 records scanned in [email or web address] Wood, red hat linux administrator [facility]06-09-2025 Miscellaneous Notes* Telephone Encounter - Jahaira Wood - 11/23/2024 1:48 PM EDT Received missed visit notes 11/20/24 and 11/10/24 records scanned in [email or web address] Wood, red hat linux administrator documented in this encounterSelect Medical Specialty [facility]06-09-2025 History of Present illness Narrative* Triston Riggs MD - 11/23/2024 12:00 PM EDT Images from the original note were not included. [facility] Consultation CC: Persistent RIGHT pleural effusion Sav Raymundo is a 74 year old male sent by Dr. STEPHANE Cesar MD for evaluation of persistent RIGHT pleural effusion. My final recommendations will be communicated to the requesting health care provider by way of the shared medical record for internal providers or letter via the [employer] Service for external providers. Assessment and [...] He will complete course of oral antibiotics. [facility], [place], [place] is home care provider. He continues [...] 10 mg by mouth once daily. calcium vdg-zay-Q4-Zn-coping machine operator-kian 250 mg-40 mg- 125 unit-3.75mg tab [...] UltraSens C-Reactive Protein <3.1 mg/L 13.2 (H) [facility] Reference Range & Units Most Recent [...] 1.21 0.95 (L) 0.80 (L) 0.91 (L) Greene% % 7.6 11/12/24 13:30 11.7 12.9 7.3 7.6 Abs Greene <0.87 k/uL 0.67 11/12/24 13:30 0.80 1.03 [...] 36 % 39 80 (H) 80 (H) Greene%, BF % 6 Macro%, BF 64 - [...] with more than 50% of the total scza-zc-ssyq time of the visit in counseling / coordination of care. Triston Riggs M.D. Staff, Interventional Pulmonology. Pulmonary, Allergy & Critical Care Medicine [facility] documented in this encounterSelect Medical Specialty [facility] [place]06-09-2025 NoteMount Carmel Health System06-09-2025 History of Present illness Narrative* Karsten Lagos RT(R) - 11/23/2024 11:40 AM [...] PATIENT PRESENTS WITH AN IMPLANTABLE OR ATTACHED BRAND SPECIALIST: No RADIOLOGY DEPARTMENT: General X-ray: Exam(s) Completed: Chest X-Ray PERIPHERAL IV DATA: Not applicable SIGNED BY: RT Franca(R) November 23, 2024 12:31 PM documented in this encounterSelect Medical Specialty [facility] [place]06-09-2025 NoteMount Carmel Health System06-06-2025 NoteMount Carmel Health System06-06-2025 History of Present illness Narrative* Zac Mendiola MD - 11/20/2024 9:23 AM EDT Images from the original note were not included. Heart, Vascular and [facility] April Baltazar Department of Cardiovascular Medicine SECTION OF INTERVENTIONAL CARDIOLOGY OUTPATIENT VISIT DATE 11/20/2024 OUTPATIENT VISIT TYPE New PRIMARY CARE PHYSICIAN: Jose Antonio Hopper [address] [place] [address] REFERRING PHYSICIAN: No referring provider defined for this encounter. Recording using [employer] software for draft documentation of the visit was discussed with the patient/authorized sales representative raw fibers; all questions welcomed and answered. Patient/authorized sales representative raw fibers agreed to proceed HISTORY OF PRESENT ILLNESS: [...] multiple joints Pleural effusion, right s/p Thoracentesis 4/16/24 = 520 cc, 625 cc PAST SURGICAL [...] 10 mg by mouth once daily. calcium wtx-uur-H5-Zn-coping machine operator-kian 250 mg-40 mg- 125 unit-3.75mg tab [...] of Cardiovascular Medicine Heart, Vascular and [facility] Office Office Pager [phone] documented in this encounterSelect Medical Specialty [facility] [place]06-05-2025 NoteMount Carmel Health System06-05-2025 History of Present illness Narrative* Triston Riggs MD - 11/19/2024 3:28 PM EDT Images from the original note were not included. [facility]ation CC: Persistent RIGHT pleural effusion Sav Raymundo is a 74 year old male sent by Dr. STEPHANE Cesar MD for evaluation of persistent RIGHT pleural effusion. My final recommendations will be communicated to the requesting health care provider by way of the shared medical record for internal providers or letter via the [employer] Postal Service for external providers. Assessment and [...] CxR placed He will obtain CxR in [place] as need for perceived recurrence of effusion [...] Catheter not accessed 11/17, 11/18 or today. [place], [place] is home care provider. He continues [...] 10 mg by mouth once daily. calcium cgn-ufw-M7-Zn-coping machine operator-kian 250 mg-40 mg- 125 unit-3.75mg tab [...] UltraSens C-Reactive Protein <3.1 mg/L 13.2 (H) [facility] Reference Range & Units Most Recent [...] 1.21 0.95 (L) 0.80 (L) 0.91 (L) Greene% % 7.6 11/12/24 13:30 11.7 12.9 7.3 7.6 Abs Greene <0.87 k/uL 0.67 11/12/24 13:30 0.80 1.03 [...] 36 % 39 80 (H) 80 (H) Greene%, BF % 6 Macro%, BF 64 - [...] Care Medicine [facility] documented in this encounterSelect Medical Specialty [facility] [place]06-05-2025 History of Present illness Narrative* Se Quinn [...] PATIENT PRESENTS WITH AN IMPLANTABLE OR ATTACHED BRAND SPECIALIST: No RADIOLOGY DEPARTMENT: General X-ray: Exam(s) Completed: Chest X-Ray PERIPHERAL IV DATA: Not applicable SIGNED BY: RT Dimitri(R) November 19, 2024 1:24 PM documented in this encounterSelect Medical Specialty [facility] [place]06-05-2025 NoteMount Carmel Health System06-03-2025 Telephone encounter Note* Telephone Encounter - Amanda [...] with physician. She can be reached at [phone] She asked if a detailed voicemail can be left if somehow she misses the call [facility]06-03-2025 Miscellaneous Notes* Telephone Encounter - Amanda Brooks [...] with physician. She can be reached at [phone] She asked if a detailed voicemail can be left if somehow she misses the call documented in this encounterSelect Medical Specialty [facility] [place]05-30-2025 History of Present illness Narrative* Jose Antonio Hopper MD - 11/13/2024 1:34 PM EDT PROGRESS NOTES Patient Name: Sav Raymundo SERVICE DATE: 11/13/2024 SERVICE TIME: 1:47 PM HPI: Mr. Raymundo is a 74 year old male who presents for Follow Up.Developed significant swelling.[facility] ED.No SOB,no abdominal pain MEDICATIONS: Current Outpatient [...] 10 mg by mouth once daily. calcium bnk-wwb-V0-Zn-coping machine operator-kian 250 mg-40 mg- 125 unit-3.75mg tab [...] diaphragmatic excursion. Lungs clear to auscultation. Heart: Roscoe normal. Precordium quiet. RRR. Normal HS with [...] 2024 TIME: 1:47 PM documented in this encounterSelect Medical Specialty [facility]05-29-2025 NoteMount Carmel Health System05-28-2025 Miscellaneous Notes* Telephone Encounter - Xiomara Ly APRN.CNP - 11/11/2024 5:20 PM EDT Called pt to discuss symptoms. Advised that given reported rapid weight gain over the last 4-5 days, he should be evaluated in the ED to determine if inpatient management is appropriate for worseningsymptoms. Pt verbalized understanding. Xiomara Ly APRN.CNP documented in this encounterSelect Medical Specialty [facility] [place]05-28-2025 Telephone encounter Note * Telephone Encounter - Xiomara Ly APRN.CNP - 11/11/2024 5:20 PM EDT Called pt to discuss symptoms. Advised that given reported rapid weight gain over the last 4-5 days, he should be evaluated in the ED to determine if inpatient management is appropriate for worseningsymptoms. Pt verbalized understanding. Xiomara Ly APRN.CNP [facility] Work Phone: 1(632) 997-620405-21-2025 NoteHNO ID: [id number] Author: CINTIA JOSHI RT(R) Service: Radiology Author [...] PATIENT PRESENTS WITH AN IMPLANTABLE OR ATTACHED BRAND SPECIALIST: No RADIOLOGY DEPARTMENT: CT; Exam(s) Completed: Enterography PERIPHERAL IV DATA: Not applicable SIGNED BY: RT Cachorro(R) November 04, 2024 1:24 [facility] [id number] NoteHNO ID: [id number] Author: DRAGAN LOPEZ CT Service: Radiology Author [...] November 04, 2024 TIME: 2:57 PM PAGER/CONTACT [phone] History of Present illness Narrative* Riley Rowley RDMS, RVT - 10/23/2024 1:45 PM EDT Radiology Service Progress Note PATIENT NAME: aSv Raymundo DATE OF SERVICE: October 23, 2024 [...] PATIENT PRESENTS WITH AN IMPLANTABLE OR ATTACHED BRAND SPECIALIST: No RADIOLOGY DEPARTMENT: Ultrasound PERIPHERAL IV DATA: Not applicable SIGNED BY: Riley Rowley RDMS, RVT October 23, 2024 2:13 PM documented in this encounterSelect Medical Specialty [facility] [place]05-09-2025 NoteHNO ID: [id number] Author: RILEY ROWLEY RDMS, RVT Service: Radiology Author Type: Park Worker Supervisor Type: Progress Notes Filed: 10/23/2024 14:13 Note [...] PATIENT PRESENTS WITH AN IMPLANTABLE OR ATTACHED BRAND SPECIALIST: No RADIOLOGY DEPARTMENT: Ultrasound PERIPHERAL IV DATA: Not applicable SIGNED BY: Riley Rowley RDMS, DEYVI October 23, 2024 2:13 [facility] [id number] Telephone encounter Note* Telephone Encounter - Jahaira Wood - 10/23/2024 10:20 AM EDT Received missed visit note from [facility] 10/14/24, record scanned in Epic Jahaira Wood, red hat linux administrator [facility]05-09-2025 Miscellaneous Notes* Telephone Encounter - Jahaira Wood - 10/23/2024 10:20 AM EDT Received missed visit note from [facility] 10/14/24, record scanned in [facility] Jahaira Wood, red hat linux administrator documented in this encounterSelect Medical Specialty [facility]05-07-2025 Telephone encounter Note * Telephone Encounter - [...] and agreeable to advisement. Xiomara yL APRN.CNP [facility]05-07-2025 Miscellaneous Notes* Telephone Encounter - Xiomara Ly [...] advisement. Xiomara Ly APRN.CNP documented in this encounterSelect Medical Specialty [facility] [place]05-01-2025 History of Present illness Narrative* Zabrina Suarez MD - 10/15/2024 9:20 AM EDT [facility] NEPH[facility]ERTENSION [facility] SERVICE DATE: [...] 1 tablet by mouth once daily. calcium ifi-wnu-S7-Zn-coping machine operator-kian 250 mg-40 mg- 125 unit-3.75mg tab [...] PHYSICIAN: Yuli Mariscal DO documented in this encounterSelect Medical Specialty [facility]05-01-2025 NoteMount Carmel Health System04-30-2025 Miscellaneous Notes* Telephone Encounter - Xiomara Ly APRN.CNP - 10/14/2024 4:00 PM EDT This concern was discussed and addressed at 10/14/24 appointment. Xiomara Ly APRN.CNP documented in this encounterSelect Medical Specialty [facility] [place]04-30-2025 Telephone encounter Note * Telephone Encounter - Xiomara Ly APRN.CNP - 10/14/2024 4:00 PM EDT This concern was discussed and addressed at 10/14/24 appointment. Ximoara Ly APRN.CNP [facility] Work Phone: [phone]) [phone] Instructions* Patient Instructions* Xiomara Ly APRN.CNP - [...] pt on sooner follow-up documented in this encounterSelect Medical Specialty Hospital [facility] [place]04-30-2025 History of Present illness Narrative* Ernie LyLETICIA pisano.SET UP MECHANIC AUTOMATIC LINE - 10/14/2024 3:00 PM EDT SUBJECTIVE 74 [...] 10 mg by mouth once daily. calcium yhm-prb-K5-Zn-coping machine operator-kian 250 mg-40 mg- 125 unit-3.75mg tab [...] which included preparing to see the patient, mxrc-id-hqkf patient care, completing clinical documentation, obtaining and/or reviewing separately obtained history, performing a medically appropriate examination, counseling and educating the pat ient/family/caregiver, and ordering medications, tests, or procedures. Xiomara Ly APRN.CNP 10/15/2024 9:00 AM documented in this encounterSelect Medical Specialty [facility] [place]04-30-2025 NoteMount Carmel Health System04-30-2025 NoteMount Carmel Health System04-30-2025 History of Present illness Narrative* Triston Riggs MD - 10/14/2024 1:04 PM EDT Images from the original note were not included. [facility] CC: Persistent RIGHT pleural effusion Sav Raymundo is a 74 year old male sent by Dr. STEPHANE Cesar MD for evaluation of persistent RIGHT pleural effusion. My final recommendations will be communicated to the requesting health care provider by way of the shared medical record for internal providers or letter via the [employer] Service for external providers. Assessment and [...] did he have some sense of limitation. [facility], [place], [place] is home care provider. Since he [...] Raymundo is a 71 y/o, from the [facility], here for follow-up for pleural [...] referred for pleurodesis to thoracic surgery in [facility], which he underwent inJune 2023. Though no pleural fluid analysis done, but pleural biopsy showed pleuritis. Post pleurodesis, he continued to have significant drainage, tunneled pleural catheter was placed. He was then hospitalized ( abdominal bloating ) -in [facility], and responded well to diuresis. He has [...] other day) -Rheumatologic assessment done, workup negative, elevator adjuster has no evidence of any autoimmune disease -Off prednisone for the last 5 months -Off Plaquenil for the past 3 weeks -On diuretics, now on torsemide Interestingly, on further discussion, mostly with elevator adjuster, we have uncovered that he has been [...] 10 mg by mouth once daily. calcium gpq-qiy-F4-Zn-coping machine operator-kian 250 mg-40 mg- 125 unit-3.75mg tab [...] 0.1 10/15/2024 Abs Neut 9.45 10/15/2024 Abs Greene 0.81 10/15/2024 Abs Eosin <0.03 10/15/2024 Abs [...] 36 % 39 80 (H) 80 (H) Greene%, BF % 6 Macro%, BF 64 - [...] Care Medicine [facility] documented in this encounterSelect Medical Specialty [facility] [place]04-29-2025 History of Present illness Narrative* Patricia Coello [...] PATIENT PRESENTS WITH AN IMPLANTABLE OR ATTACHED BRAND SPECIALIST: No RADIOLOGY DEPARTMENT: General X-ray: Exam(s) Completed: Chest X-Ray PERIPHERAL IV DATA: Not applicable SIGNED BY: RT [place](R) October 13, 2024 1:12 PM documented in this encounterSelect Medical Specialty [facility] [place]04-29-2025 [facility]04-18-2025 NoteMount Carmel Health System04-18-2025 History of Present illness Narrative* Katerina Contreras [...] agreement. Katerina Contreras PA-C documented in this encounterSelect Medical Specialty [facility] [place]04-11-2025 NoteQ3 Patient Name: Sav Raymundo Procedure Date: 09/25/2024 11:14 AM Date of : 1950 Admit Type: Outpatient Age: 74 Gender: Male Note Status: Finalized Attending MD: Shay Dennis , , [id number] Procedure: Upper GI endoscopy Indications: Dysphagia Providers: [...] by the physician, the nurse and the dryer feeder in the pre-procedure area in the endoscopy [...] Integrity. Impression: - Nor (more content not included)...[id number] Nurse Note* Obi Flower LPN - 09/25/2024 [...] MATERIAL: Procedure Discharge Instructions REFERRAL (RECOMMENDATION): None [facility]04-11-2025 Nurse Note* Obi Flower LPN - 09/25/2024 [...] By: Amrik Mast, RN In Department: GASTROENTEROLOGY documented in this encounterSelect Medical Specialty [facility] [place]04-11-2025 History and physical note * Shay Dennis MD - 09/25/2024 11:30 AM EDT ENDOSCOPY HISTORY AND PHYSICAL EXAM Sav Raymundo [id number] Subjective HPI: This is a 74 year [...] an EGD with dilation using a 60 Macedonian Keller dilator in April 2024 PAST ANESTHESIA [...] 1 tablet by mouth once daily. calcium axs-try-Z9-Zn-coping machine operator-kian 250 mg-40 mg- 125 unit-3.75mg tab [...] signed Shay Dennis MD 09/24/2024 4:08 PM [facility]04-11-2025 History and physical note* Shay Dennis MD - 09/25/2024 11:30 AM EDT ENDOSCOPY HISTORY AND PHYSICAL EXAM Sav Cantu Kimberly [id number] Subjective HPI: This is a 74 year [...] an EGD with dilation using a 60 Macedonian Keller dilator in April 2024 PAST ANESTHESIA [...] 1 tablet by mouth once daily. calcium fna-cnb-J7-Zn-coping machine operator-kian 250 mg-40 mg- 125 unit-3.75mg tab [...] MD 09/24/2024 4:08 PM documented in this encounterSelect Medical Specialty [facility]04-11-2025 Nurse Note* Amrik Mast, RN - 09/25/2024 10:48 AM EDT PRE OP LEARNING ASSESSMENT PROCEDURE/SURGERY: GI PROCEDURES: EGD READINESS TO LEARN COGNITIVE ABILITY: Alert and oriented MOTIVATION TO LEARN: Interested FAMILY SUPPORT: High - Very involved in pt care PATIENT LEARNS BEST BY: Individual Instruction FACTORS AFFECTING LEARNING: None PHYSICAL LIMITATIONS AFFECTING LEARNING: None Electronically Signed By: Amrik Mast, RN In Department: GASTROENTEROLOGY [facility]04-09-2025 Telephone encounter Note* Telephone Encounter - Jahaira Wood - 09/23/2024 11:59 AM EDT Received missed visit notes from [facility] Records scanned in [facility] Jahaira Wood, red hat linux administrator [facility]04-09-2025 Miscellaneous Notes* Telephone Encounter - Jahaira Wood - 09/23/2024 11:59 AM EDT Received missed visit notes from [facility] Records scanned in [facility] Jahaira Wood, red hat linux administrator documented in this encounterSelect Medical Specialty [facility]04-04-2025 Nurse Note* Melinda Calderón RN - 09/18/2024 [...] have family/friend present for procedure transport home:Patient/patient sales representative raw fibers was told that if they do not [...] area. Any barriers to Patient learning: Patient/Patient Hedis Coordinator responded appropriately on phone. Type of instruction given: Verbal by telephone contact. Melinda Calderón RN [facility]04-04-2025 Nurse Note* Melinda Calderón RN - 09/18/2024 [...] have family/friend present for procedure transport home:Patient/patient sales representative raw fibers was told that if they do not [...] area. Any barriers to Patient learning: Patient/Patient Hedis Coordinator responded appropriately on phone. Type of instruction given: Verbal by telephone contact. Melinda Calderón RN documented in this encounterSelect Medical Specialty [facility]03-31-2025 Telephone encounter Note * Telephone Encounter - Andree Colby RN - 09/14/2024 12:56 PM EDT Left message on EVAN Campos's voicemail after d/w pleaural team. Pleurx is draining as expected. Stomach distention should not be a symptom of pleural drainage and may need to be further evaluated in GI or the ED if symptoms persists. [facility]03-31-2025 Miscellaneous Notes* Telephone Encounter - Andree Colby [...] - 09/14/2024 10:28 AM EDT Beth from [facility] called with an update. They have started draining on daily for pluerx catheter. They have been getting between 170 and 210 daily. Patient had SOB on and denies SOB other days. Stomach is distended Beth can be reached at [phone] documented in this encounterSelect Medical Specialty [facility]03-31-2025 Telephone encounter Note * Telephone Encounter - Amanda Brooks - 09/14/2024 10:28 AM EDT Beth from [facility] called with an update. They have started draining on daily for pluerx catheter. They have been getting between 170 and 210 daily. Patient had SOB on and denies SOB other days. Stomach is distended Beth can be reached at [phone] [facility]03-25-2025 NoteMount Carmel Health System03-21-2025 History of Present illness Narrative* Jose Antonio [...] mouth once daily. 90 tablet 0 calcium lxi-mky-G1-Zn-coping machine operator-kian 250 mg-40 mg- 125 unit-3.75mg tab [...] diaphragmatic excursion. Lungs clear to auscultation. Heart: Roscoe normal. Precordium quiet. RRR. Normal HS with [...] 2024 TIME: 2:11 PM documented in this encounterSelect Medical Specialty [facility]03-21-2025 NoteMount Carmel Health System03-21-2025 Telephone encounter Note* Telephone Encounter - Benny Johnson - 09/04/2024 10:57 AM EDT 09/04 - Scheduled patient for Thoracentesis at [facility] for 09/08 @ [facility]03-21-2025 Miscellaneous Notes* Telephone Encounter - Benny Johnson - 09/04/2024 10:57 AM EDT 09/04 - Scheduled patient for Thoracentesis at [facility] for 09/08 @ documented in this encounterSelect Medical Specialty [facility]03-19-2025 Telephone encounter Note * Telephone Encounter - Hanane Bonilla, 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.SET UP MECHANIC AUTOMATIC LINE - 09/02/2024 4:13 PM EDT Spoke with [facility] who states they have not had steroid injection yet (updated). She is wondering aboutbest practice to get PleurX to drain and if it is okay to have patient cough during draining. Advised that coughing is okay during draining. Currently draining daily till appointment with Dr. Riggs. All questions answered to satisfaction. Hanane Bonilla APRN.CNP 4:22 PM, 09/02/2024 [facility] Work Phone: 1(169) 171-403003-19-2025 Miscellaneous Notes* Telephone Encounter - Hanane Bonilla APRN.CNP - 09/02/2024 4:13 PM EDT Spoke with [facility] who states they have not had steroid injection yet (updated). She is wondering aboutbest practice to get PleurX to drain and if it is okay to have patient cough during draining. Advised that coughing is okay during draining. Currently draining daily till appointment with Dr. Riggs. All questions answered to satisfaction. Hanane Bonilla APRN.CNP 4:22 PM, 09/02/2024 * Telephone Encounter - Susan oRdas RN - 09/02/2024 3:57 PM EDT Images from the original note were not included. [facility] Phone Encounter DATE of SERVICE: 09/02/2024 TIME of SERVICE: 3:57 PM Status: Non-urgent, needs attention Service/Provider: Thoracic Surgery Ronaldo Flood M.D. Reason for call: Care Coordination Contact information: [facility] nurse, Resolution: Sent to [facility] Comments: Roney Campos home care nurse, called [...] of Resolution 3:57 PM documented in this encounterSelect Medical Specialty [facility]03-19-2025 Telephone encounter Note * Telephone Encounter - Susan Rodas RN - 09/02/2024 3:57 PM EDT Images from the original note were not included. [facility] Phone Encounter DATE of SERVICE: 09/02/2024 TIME of SERVICE: 3:57 PM Status: Non-urgent, needs attention Service/Provider: Thoracic Surgery Ronaldo Flood M.D. Reason for call: Care Coordination Contact information: [facility] nurse, Resolution: [facility] to [facility]: [facility] called the [facility] post-discharge line to ask to speak with Della Barragan CNP as she just left a visit with the patient, Sav Raymundo. eBth has questions about PleurX catheter. She is wondering If she should be having pt cough to get more drainage out or if she should be letting it drain as is. HHN would like advice and instruction on PleurX. Susan Rodas RN Date of Resolution: 09/02/2024 Time of Resolution 3:57 PM [facility]2025 History of Present illness Narrative* Raji Bynum [...] limited to risks of scarring, darker or fender repairer pigmentary changes, recurrence, incomplete removal and infection. [...] both legs Left Lower Leg - Anterior Saxman scaly plaques in areas of edema, mild, [...] Next Visit: 1 year documented in this encounterSouthPointe [id number] Telephone encounter Note* Telephone Encounter - Britney Hsu RN - 08/26/2024 4:27 PM EDT Patient spouse (ayaka) returned call. Verified patient name and . Advised potassium levels were low and elevated kidney function. To please follow up with PCP and Dr. Hopper. verbalized understanding and agreed, Will follow up as needed. Britney Shen RN [facility]03-12-2025 Miscellaneous Notes* Telephone Encounter - Britney Hsu [...] Hopper for further management documented in this encounterSelect Medical Specialty [facility]03-12-2025 Telephone encounter Note * Telephone Encounter - [...] Shen RN [facility]03-12-2025 Progress note* Result Encounter Note - Sue Murillo MD - 08/26/2024 12:41 PM EDT Please call patient and let him know that his potassium levels are down with elevated kidney function test. He is already on potassium supplements. Needs to touch base with his PCP and Dr Hopper for further management [facility] Work Phone: 1(784) 470-955403-10-2025 History of Present illness Narrative* Sue Murillo MD - 08/24/2024 11:00 AM EDT Follow Up Visit SUBJECTIVE 74 year old male with lymphocytic colitis here for follow-up. Last seen 05/26/2024. Changes and test results since last visit: He is off of budesonide since a month Coughing, vomiting and swallowing issues. Started on Lost about 11 lbs weight loss. Station Worker wants to start steroid injections directly into [...] mouth once daily. 90 tablet 0 calcium cxz-nbv-Q6-Zn-coping machine operator-kian 250 mg-40 mg- 125 unit-3.75mg tab [...] dilation -continue with PPI Sue Murillo MD, August 23, 2024 7:06 PM * Shyla Ornelas OCCA - 08/24/2024 10:49 AM EDT Pt stated that he is having problems swallowing. Pt coughs and throws up for the food that gets stuck and then he can eat some more. documented in this encounterSelect Medical [facility]ty [facility]03-10-2025 NoteMount Carmel Health System03-10-2025 NoteMount Carmel Health System03-07-2025 Telephone encounter Note* Telephone Encounter - Ayana Cheung RN - 08/21/2024 10:28 AM EST Images from the original note were not included. [facility] Resource [place] Phone Encounter DATE of SERVICE: 08/21/2024 TIME of SERVICE: 10:28 AM Status: Non-urgent, needs attention Service/Provider: Thoracic Surgery Ronaldo Flood M.D. Reason for call: Care Coordination Contact information: [facility] Care nurse, Resolution: [facility] Comments: Roney Campos home care nurse, called the [facility] post-discharge line to ask to speak with [...] 10:28 AM [facility]03-07-2025 Miscellaneous Notes* Telephone Encounter - Ayana Cheung RN - 08/21/2024 10:28 AM EST Images from the original note were not included. [facility] [place] Phone Encounter DATE of SERVICE: 08/21/2024 TIME of SERVICE: 10:28 AM Status: Non-urgent, needs attention Service/Provider: Thoracic Surgery Ronaldo Flood M.D. Reason for call: Care Coordination Contact information: Beth [facility] Home Care nurse, Resolution: [facility] to [facility] Comments: Roney Campos home care nurse, called [...] of Resolution 10:28 AM documented in this encounterSelect Medical Specialty [facility]03-04-2025 NoteMount Carmel Health System03-04-2025 History of Present illness Narrative* Della Barragan APRN.CNP - 08/18/2024 2:06 PM EST Images from the original note were not included. [facility] [place] DEPARTMENT OF THORACIC SURGERY OUTPATIENT VISIT TYPE ESTABLISHED Part of this note was copied from previous note, all content has been individually reviewed, updated as necessary, and thoroughly reviewed. PT NAME: Sav Raymundo [facility] NO: [id number] THORACIC SURGEON: Ronaldo Flood M.D. DATE OF SERVICE: 08/18/2024 PRINCIPAL DX: Pleural Effusion SURGICAL HX 11/20/2023: R VATS pleural biopsy, right motorcycle mechanic apprentice and doxycycline pleurodesis, right Pleurx catheter insertion, [...] 11/20/2023, patient underwent R VATS pleuralbiopsy, right motorcycle mechanic apprentice and doxycycline pleurodesis, right Pleurx catheter insertion, right 20Fr chest tube insertion. He was hospitalized 12/20/23 for anasarca, possible autoimmune disease, recurrent pleural effusion. Imaging did not reveal any acute findings. Patient was admitted to [facility] and started on lasix drip, improving anasarca and pleural effusion. Pleurx catheter was drained daily with significantly decreasing output [phone]. He was worked up for an autoimmune [...] effusion s/p R VATS pleural biopsy, right motorcycle mechanic apprentice and doxycycline pleurodesis, right Pleurx catheter insertion, right 20Fr chest tube insertion on 11/20/[address] Flood. PLAN: - continue draining the pleurex daily - Dr Riggs/pulm to perform intrapleural steroid injection - return as needed Della Barragan APRN.SET UP MECHANIC AUTOMATIC LINE documented in this encounterSelect Medical Specialty [facility]02-28-2025 NoteRight Eye Quality was good. Scan locations included subfoveal. Progression has been stable. Findings include normal observations. Left Eye Quality was good. Scan locations included subfoveal. Progression has been stable. Findings include normal observations. Notes Good scan with normal appearanceSouthPointe [id number] NoteMount Carmel Health System02-26-2025 History of Present illness Narrative* Anne-Marie Bajwa, [...] laser capsulotomy, they are to notify their coring machine operator promptly if they have a significant change [...] resolution of the lesion. documented in this encounterSouthPointe [id number] Telephone encounter Note* Telephone Encounter - Maggie Leon - 08/12/2024 12:42 PM EST Patient requesting return call from [employer]. Please call [phone] I informed patient Beth from [facility] called today and spoke with office. [facility]02-26-2025 Miscellaneous Notes* Telephone Encounter - Maggie Leon - 08/12/2024 12:42 PM EST Patient requesting return call from Katerina. Please call [phone] I informed patient Beth from [facility] called today and spoke with office. documented in this encounterSelect Medical Specialty [facility]02-26-2025 Telephone encounter Note * Telephone Encounter - Amanda Brooks - 08/12/2024 12:27 PM EST Beth from [facility] called and would like to speak to Katerina. Spoke with Beth She informed me that pt going to local ED for evaluation. Update: Pt had b/l US - report from [facility] was negative for DVTs was received and sent to be entered into scanned docs. Pt notified of results. Katerina Contreras PA-C [facility]02-26-2025 Miscellaneous Notes* Telephone Encounter - Amanda Brooks - 08/12/2024 12:27 PM EST Beth from [facility] called and would like to speak to Katerina. Spoke with Beth She informed me that pt going to local ED for evaluation. Update: Pt had b/l US - report from [facility] was negative for DVTs was received and sent to be entered into scanned docs. Pt notified of results. Katerina Contreras PA-C documented in this encounterSelect Medical Specialty [facility]02-26-2025 Telephone encounter Note * Telephone Encounter - Maggie Leon - 08/12/2024 10:21 AM EST Beth from [facility] called and updated she left a voicemail regarding this patient. He is having issues with pleurrX drain, swelling, weight gain, nausea and constipation. She would like acall back at [phone] Spoke with pt's [facility] nurse, Beth. Pt still draining daily [...] Flood. Of note, they are meeting with MEMBERSHIP COUNSELOR Della Barragan on , 08/18/24. Update communicated to Dr. Riggs. Katerina Contreras PA-C Addendum: Nurse reports pt plans on going to local hospital Katerina Contreras PA-C [facility]02-26-2025 Miscellaneous Notes* Telephone Encounter - Maggie Leon - 08/12/2024 10:21 AM EST Beth from [facility] called and updated she left a voicemail regarding this patient. He is having issues with pleurrX drain, swelling, weight gain, nausea and constipation. She would like acall back at [phone] Spoke with pt's [facility] nurse, Beth. Pt still draining daily [...] Flood. Of note, they are meeting with MEMBERSHIP COUNSELOR Della Barragan on , 08/18/24. Update communicated to Dr. Riggs. Katerina Contreras PA-C Addendum: Nurse reports pt plans on going to local hospital Katerina Contreras PA-C documented in this encounterSelect Medical Specialty [facility]02-24-2025 Telephone encounter Note * Telephone Encounter - Amanda Brooks - 08/10/2024 9:35 AM EST Beth from [facility] called and would like to speak to Katerina regarding patient symptoms [facility]02-24-2025 Miscellaneous Notes* Telephone Encounter - Amanda Brooks - 08/10/2024 9:35 AM EST Beth from [facility] called and would like to speak to Katerina regarding patient symptoms documented in this encounterSelect Medical Specialty [facility]02-18-2025 Telephone encounter Note * Telephone Encounter - Maggie Leon - 08/04/2024 10:23 AM EST Call received from home care Nurse, Beth. She wanted to update our office that she is waiting to hear back from dr Flood. Patient is having issues with pleurix and they are unsure if it's due to clogging or if it's positional. Beth can be reached at [phone] [facility]02-18-2025 Miscellaneous Notes* Telephone Encounter - Maggie Leon - 08/04/2024 10:23 AM EST Call received from home care Nurse, Beth. She wanted to update our office that she is waiting to hear back from dr Flood. Patient is having issues with pleurix and they are unsure if it's due to clogging or if it's positional. Beth can be reached at [phone] * Telephone Encounter - Amanda Brooks - 08/03/2024 2:20 PM EST Patient called and would like to know the status of next upcoming steps. Patient asked ifDr. Riggs has spoken with Dr. Flood. Additionally stated the drainage for the past week to present. Home health care is concerned their may be blockage (a clog) in tube. 07/27- 160 daily drain 07/28 - 60 07/29-15 - 150 each day Yesterday - 20 Today - 35 Virgen (patient ) [phone] Patient [phone] documented in this encounterSelect Medical [facility]ty [facility]02-18-2025 Telephone encounter Note * Telephone Encounter - Jahaira Wood - 08/04/2024 8:38 AM EST Received missed visit notes from [facility], record scannned in Epic Jahaira Wood red hat linux administrator [facility]02-18-2025 Miscellaneous Notes* Telephone Encounter - Jahaira Wood - 08/04/2024 8:38 AM EST Received missed visit notes from [facility], record scannned in [facility] Jahaira Wood, red hat linux administrator documented in this encounterSelect Medical Specialty [facility]02-17-2025 Telephone encounter Note * Telephone Encounter - [...] 20 Today - 35 Virgen (patient ) [phone] Patient [phone] [facility]02-04-2025 History of Present illness Narrative* Jose Antonio Hopper MD - 07/21/2024 2:19 PM EST PROGRESS NOTES Patient Name: Sav Raymundo SERVICE DATE: 07/21/2024 SERVICE TIME: 2:25 PM HPI: Mr. Raymundo is a 74 year old male who presents for Effusion.Has been emptying Plerax catheter daily.Has been seeing data clerk at [facility].Pleural fluid analysis has been done MEDICATIONS: Current Outpatient Medications Medication Sig Dispense Refill potassium chloride ER (KLOR-CON M20) 20 mEq tablet Take 2 tablets by mouth two times a day. 360 tablet 0 torsemide (DEMADEX) 100 mg tablet Take 1 tablet by mouth once daily. 90 tablet 0 calcium epz-nwc-J6-Zn-coping machine operator-kian 250 mg-40 mg- 125 unit-3.75mg tab [...] diaphragmatic excursion. Lungs clear to auscultation. Heart: Roscoe normal. Precordium quiet. RRR. Normal HS with [...] 2024 TIME: 2:25 PM documented in this encounterSelect Medical Specialty [facility]02-03-2025 History of Present illness Narrative* Riggs, Triston, MD - 07/20/2024 1:00 PM EST Images from the original note were not included. [facility] CC: Persistent RIGHT pleural effusion Sav Raymundo is a 74 year old male sent by Dr. STEPHANE Cesar MD for evaluation of persistent RIGHT pleural effusion. My final recommendations will be communicated to the requesting health care provider by way of the shared medical record for internal providers or letter via the [employer] for external providers. Assessment and [...] did he have some sense of limitation. [facility], [place], [place] is home care provider. Excerpt from Dr Cesar 05/20/2024. Mr Raymundo is a 71 y/o, from the [facility], here for follow-up for pleural [...] referred for pleurodesis to thoracic surgery in [facility], which he underwent inJune 2023. Though no pleural fluid analysis done, but pleural biopsy showed pleuritis. Post pleurodesis, he continued to have significant drainage, tunneled pleural catheter was placed. He was then hospitalized ( abdominal bloating ) -in [facility], and responded well to diuresis. He has [...] other day) -Rheumatologic assessment done, workup negative, elevator adjuster has no evidence of any autoimmune disease -Off prednisone for the last 5 months -Off Plaquenil for the past 3 weeks -On diuretics, now on torsemide Interestingly, on further discussion, mostly with elevator adjuster, we have uncovered that he has been [...] mouth once daily. 90 tablet 0 calcium qzc-oln-W8-Zn-coping machine operator-ikan 250 mg-40 mg- 125 unit-3.75mg tab Take [...] 0.5 04/20/2024 Abs Neut 5.91 04/20/2024 Abs Greene 1.03 04/20/2024 Abs Eosin <0.03 04/20/2024 Abs [...] 36 % 39 80 (H) 80 (H) Greene%, BF % 6 Macro%, BF 64 - [...] Care Medicine [facility] documented in this encounterSelect Medical Specialty [facility]02-03-2025 [facility]01-31-2025 NoteHNO ID: [id number] Author: KATERINA CONTRERAS PA-C Service: ? Author Type: Physician Still Photographer Type: Progress Notes Filed: 07/17/2024 14:02 Note Text: Orders for pleurX vacuum bottles signed and faxed back to [facility]. [facility] History of Present illness Narrative* Katerina Contreras PA-C - 07/17/2024 2:01 PM EST Orders for pleurX vacuum bottles signed and faxed back to [facility]. Katerina Contreras PA-C documented in this encounterSelect Medical Specialty [facility]01-30-2025 Telephone encounter Note * Telephone Encounter - Maggie Leon - 07/16/2024 2:53 PM EST Called patient's and informed her that there isn't any indication in Dr. Riggs's office notes that request any lab work at this time. [facility]01-30-2025 Miscellaneous Notes* Telephone Encounter - Maggie Leon - 07/16/2024 2:53 PM EST Called patient's and informed her that there isn't any indication in Dr. Riggs's office notes that request any lab work at this time. * Telephone Encounter - Maggie Leon - 07/16/2024 12:45 PM EST Patient is a lab in [facility] and they only see orders for body fluid, which they are unable to do. Patient would like to confirm if blood labs will need to be drawn. If so[facility] at [phone] documented in this encounterSelect Medical Specialty [facility]01-30-2025 Telephone encounter Note * Telephone Encounter - Maggie Leon - 07/16/2024 12:45 PM EST Patient is a lab in [facility] and they only see orders for body fluid, which they are unable to do. Patient would like to confirm if blood labs will need to be drawn. If so, [facility] will follow up at [phone] [facility]01-28-2025 Evaluation note* Diagnosis Onset Date Resolution Status Admit Date Nausea & vomiting acuteJanuary 2024 4:27pmViral respiratory illnessacuteJanuary 2024 4:27pm [facility] Work Phone: 1(704) 876-722001-22-2025 NoteMount Carmel Health System01-22-2025 History of Present illness Narrative* Katerina Contreras PA-C - 07/08/2024 9:41 AM EST Received fax from [employer] for signature for updated pleurX draining order to daily draining for 2 months. This was completed and faxed back to them. Katerina Contreras PA-C documented in this encounterSelect Medical Specialty [facility]01-06-2025 NoteMount Carmel Health System01-06-2025 History of Present illness Narrative* Katerina Contreras PA-C - 06/22/2024 3:10 PM EST Per request of Dr. Riggs, we plan on increasing his pleurX catheter draining to everyday. Updated orders sent to [facility] (supplies) and [facility] (faxed to [phone]). His home nurseis Beth, work cell [phone]. She is to call us if sudden cessation of drainage or 3 subsequent drains of less than 100 ml. Katerina Contreras PA-C documented in this encounterSelect Medical Specialty Hospital [facility]01-06-2025 History and physical note * Triston Riggs MD - 06/22/2024 9:00 AM EST Images from the original note were not included. [facility] CC: Persistent RIGHT pleural effusion Sav Raymundo is a 74 year old male sent by Dr. STEPHANE Cesar MD for evaluation of persistent RIGHT pleural effusion. My final recommendations will be communicated to the requesting health care provider by way of the shared medical record for internal providers or letter via the [employer] for external providers. Assessment and [...] did he have some sense of limitation. [facility], [place], [place] is home care provider. Excerpt from Dr Cesar 05/20/2024. Mr Raymundo is a 71 y/o, from the [facility], here for follow-up for pleural [...] referred for pleurodesis to thoracic surgery in [facility], which he underwent Jesus 2023. Though no pleural fluid analysis done, but pleural biopsy showed pleuritis. Post pleurodesis, he continued to have significant drainage, tunneled pleural catheter was placed. He was then hospitalized ( abdominal bloating ) -in [facility], and responded well to diuresis. He has [...] other day) -Rheumatologic assessment done, workup negative, elevator adjuster has no evidence of any autoimmune disease -Off prednisone for the last 5 months -Off Plaquenil for the past 3 weeks -On diuretics, now on torsemide Interestingly, on further discussion, mostly with elevator adjuster, we have uncovered that he has been [...] Current Outpatient Medications Medication Sig Dispense Refill hevuaf-spwvllxv-dkgamnv (CREON) 36,000-114,000- 180,000 unit delayed release capsule Take 2 capsules by mouth three times a day with meals. 200 capsule 1 potassium chloride ER (KLOR-CON M20) 20 mEq tablet Take 2 tablets by mouth two times a day. 360 tablet 0 torsemide (DEMADEX) 100 mg tablet Take 1 tablet by mouth once daily. 90 tablet 0 calcium onz-yac-R0-Zn-coping machine operator-kian 250 mg-40 mg- 125 unit-3.75mg tab [...] 0.5 04/20/2024 Abs Neut 5.91 04/20/2024 Abs Greene 1.03 04/20/2024 Abs Eosin <0.03 04/20/2024 Abs [...] Care Medicine [facility] Work Phone: 1(128) 490-684201-06-2025 History and physical note* Triston Riggs MD - 06/22/2024 9:00 AM EST Images from the original note were not included. [facility] CC: Persistent RIGHT pleural effusion Sav Raymundo is a 74 year old male sent by Dr. STEPHANE Cesar MD for evaluation of persistent RIGHT pleural effusion. My final recommendations will be communicated to the requesting health care provider by way of the shared medical record for internal providers or letter via the [employer] for external providers. Assessment and [...] did he have some sense of limitation. [facility], [place], [place] is home care provider. Excerpt from Dr Cesar 05/20/2024. Mr Raymundo is a 71 y/o, from the [facility], here for follow-up for pleural [...] referred for pleurodesis to thoracic surgery in [facility], which he underwent inJune 2023. Though no pleural fluid analysis done, but pleural biopsy showed pleuritis. Post pleurodesis, he continued to have significant drainage, tunneled pleural catheter was placed. He was then hospitalized ( abdominal bloating ) -in [facility], and responded well to diuresis. He has [...] other day) -Rheumatologic assessment done, workup negative, elevator adjuster has no evidence of any autoimmune disease -Off prednisone for the last 5 months -Off Plaquenil for the past 3 weeks -On diuretics, now on torsemide Interestingly, on further discussion, mostly with elevator adjuster, we have uncovered that he has been [...] Current Outpatient Medications Medication Sig Dispense Refill jgwotp-vvhwsptk-ftmtehc (CREON) 36,000-114,000- 180,000 unit delayed release capsule Take 2 capsules by mouth three times a day with meals. 200 capsule 1 potassium chloride ER (KLOR-CON M20) 20 mEq tablet Take 2 tablets by mouth two times a day. 360 tablet 0 torsemide (DEMADEX) 100 mg tablet Take 1 tablet by mouth once daily. 90 tablet 0 calcium cfi-duj-J0-Zn-coping machine operator-kian 250 mg-40 mg- 125 unit-3.75mg tab [...] 0.5 04/20/2024 Abs Neut 5.91 04/20/2024 Abs Greene 1.03 04/20/2024 Abs Eosin <0.03 04/20/2024 Abs [...] Care Medicine [facility] documented in this encounterSelect Medical Specialty [facility]12-27-2024 History of Present illness Narrative* Jose Antonio [...] 2 in PM) 120 tablet 2 calcium ghl-yjy-L2-Zn-coping machine operator-kian 250 mg-40 mg- 125 unit-3.75mg tab [...] Take 1 tablet by mouth once daily. mwjqoy-gjjyhdce-jqkelke (CREON) 36,000-114,000- 180,000 unit delayed release capsule [...] diaphragmatic excursion. Lungs clear to auscultation. Heart: Roscoe normal. Precordium quiet. RRR. Normal HS with [...] 2024 TIME: 3:04 PM documented in this encounterSelect Medical [facility]12-18-2024 NoteMount Carmel Health System12-18-2024 History of Present illness Narrative* Steffen Mccarty MD - 06/03/2024 10:23 AM EST Images from the original note were not included. Rheumatology FOLLOW UP VISIT Date of Service: 06/01/2024 Patient: Sav Raymundo Medical Record: [id number] Primary Care Physician: Yuli Mariscal DO Last [...] PMHx except for bilateral knee replacements and [place] fracture s/p surgery who presents for evaluation [...] for malignancy) Then decided to come to [facility] for second opinion. Saw Thoracic surgery first and underwent on 11/20/2023 R VATS with R motorcycle mechanic apprentice and doxyxyclyine pleurodesis, pleural biopsy. Biopsy notable [...] in Am and 2 in PM) calcium ydg-yti-O6-Zn-coping machine operator-kian 250 mg-40 mg- 125 unit-3.75mg tab [...] AI <0.2 Sm Antibody Negative Negative Ribosomal LICENSED AND CERTIFIED MIDWIFE Ab <1.0 AI <0.2 Ribosomal LICENSED AND CERTIFIED MIDWIFE Qualitative Negative Negative Chromatin Ab <1.0 AI <0.2 Chromatin Ab Qual Negative Negative SSA Antibody Qual Negative Negative Anti-SSA <1.0 AI <0.2 Anti-SSB <1.0 AI <0.2 LICENSED AND CERTIFIED MIDWIFE Antibody QUAL Negative Negative Scleroderma Ab Qual [...] on 06/01/2024 Name Date COVID-19 vaccine, monovalent (Coty) 09/13/2020, 08/22/2020, 08/15/2020 influenza (aIIV3) vaccine 05/09/2020 [...] Full ROM in flexion and extension. Full chainstitch elastic attacher strength. No swelling or synovitis along the [...] is currently no information documented on the homunculus. Go to the Rheumatology activity andcomplete the homunculus joint exam. Joint Exam 06/01/2024 No joint [...] which included preparing to see the patient, [id number] patient care, completing clinical documentation, obtaining and/or reviewing separately obtained history, performing a medically appropriate examination, and counseling and educating the patient/family/caregiver. Steffen Villa MD Rheumatology Date: June 03, 2024 Time: 10:43 AM documented in this encounterSelect Medical Specialty [facility]12-10-2024 History of Present illness Narrative* Sue Murillo [...] times a day. 120 tablet 2 calcium rfd-tcx-B1-Zn-coping machine operator-kian 250 mg-40 mg- 125 unit-3.75mg tab [...] 26, 2024 9:42 AM documented in this encounterSelect Medical Specialty [facility]12-10-2024 NoteMount Carmel Health System12-09-2024 Telephone encounter Note* Telephone Encounter - Marcy Longoria - 05/25/2024 12:15 PM EST Spoke with spouse to schedule appt /6 [facility]12-09-2024 Miscellaneous Notes* Telephone Encounter - Marcy Longoria - 05/25/2024 12:15 PM EST Spoke with spouse to schedule appt 1/6 documented in this encounterSelect Medical Specialty [facility]12-02-2024 Instructions* Patient Instructions* Louise Cesar MD - [...] CT scan and see Interventional Pulmonary in [facility] or [place]. Pleuroscopy could be considered but difficult after Angelique chest surgery (VATS pleurodesis) Next steps to do - see Interventional Pulmonary Dr. Riggs/Vicki with CT scan - stay tuned. Please check in if you don't hear anything in the next 2-[address] Diana Cesar MD Pulmonary and Critical Care Medicine [facility] documented in this encounterSelect Medical Specialty [facility]12-02-2024 History of Present illness Narrative* Vijay Cameron RT(R) - 05/18/2024 11:00 AM EST Radiology [...] PATIENT PRESENTS WITH AN IMPLANTABLE OR ATTACHED BRAND SPECIALIST: No RADIOLOGY DEPARTMENT: General X-ray: Exam(s) Completed: Chest X-Ray PERIPHERAL IV DATA: Not applicable SIGNED BY: RT Rosaline(R) May 18, 2024 10:54 AM documented in this encounterSelect Medical Specialty [facility]12-02-2024 NoteMount Carmel Health System12-02-2024 NoteMount Carmel Health System12-02-2024 History of Present illness Narrative* Louise Cesar MD - 05/18/2024 10:55 AM EST Images from the original note were not included. INTERVAL HPI: Willie is a gentleman in his 70s, from the [facility], here for follow-up for pleural [...] referred for pleurodesis to thoracic surgery in [facility], which he underwent inJune 2023. Though no pleural fluid analysis done, but pleural biopsy showed pleuritis. Post pleurodesis, he continued to have significant drainage, tunneled pleural catheter was placed. He was then hospitalized ( abdominal bloating ) -in [facility], and responded well to diuresis. 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 Mr. Kumar presents with an interesting history. 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 He underwent thoracentesis several times, each time pleural fluid analysis showed exudative fluid. CT scan was obtained locally which did not reveal much except pleural effusion. CT scan also shows pericardial effusion. He was then referred by his local data clerk to [facility] for a pleurodesis. In November 2023, he underwent VATS pleurodesis (mechanical and doxycycline), with pleural biopsy, and the Pleurx catheter was also placed. Analysis of the pleural fluid and biopsies of the pleura showed acute and chronic pleuritis with organization, but no malignancy. We do not have pleural fluid chemical or hematological analysis done in [facility], but cytology was negative for malignant cells. He was discharged with Pleurx catheter, and and has been draining pleural fluid about 500 to 800 mLevery other day. And his dry cough has also been persistent. In December 2023, he was sent to [facility] after seeing thoracic surgery ADRIENNE for [...] He is scheduled to see rheumatology in [facility] in the next 2 weeks. Of [...] overload/CHF?, chronic cough - local PCP, has [facility] PCP, Dr. 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 Outpatient Medications: calcium ila-bnd-F6-Zn-coping machine operator-kian 250 mg-40 mg- 125 unit-3.75mg tab [...] personally reviewed by me Data Reviewed from [facility] (in addition to that noted in HPI, and Past histories above): CMP, CBC Testing data, personally reviewed and interpreted by me: PFT, Imaging, Labs, CVS data. Assessment: Sav Raymundo is a 74 year old male presents for evaluation/follow-up of: for chronic cough and recurrent right-sided pleural effusion s/p R-VATS pleural biopsy, right motorcycle mechanic apprentice and doxycycline pleurodesis, right Pleurx catheter insertion, [...] tests. -Refer to interventional pleural specialists Dr. rTiston Riggs/Dr. Sam Cohen, with repeat CT scan. [...] PCP, Dr. Flood (Thoracic), scheduled to see elevator adjuster in [facility] Social:Lives near [place], in own house, with , no pets, adult kids, just 1 daughter who lives in [place], 2 grand-kids, no lung disease in the [...] CT scan and see Interventional Pulmonary in [facility] or [place]. Pleuroscopy could be considered but difficult after Angelique chest surgery (VATS pleurodesis) Sav Raymundo understands the plan and discussion and is comfortable with it. I spent a total of 45 minutes on the date of the service which included preparing to see the patient, [id number] patient care, completing clinical documentation, obtaining and/or reviewing separately obtained history, performing a medically appropriate examination, counseling and educating the pat ient/family/caregiver, ordering medications, tests, or procedures, independently interpreting results (not separately reported), and care coordination (not separately reported). Louise Cesar MD documented in this encounterSelect Medical Specialty Hospital [facility]11-27-2024 History of Present illness Narrative* Jose Antonio [...] two times a day. 60 tablet 0 MPHUTKP-ARPQEFZJX-LFZA ORAL Take by mouth. iv contrast (will [...] 1 tablet by mouth once daily. calcium pwx-phj-E5-Zn-coping machine operator-kian 250 mg-40 mg- 125 unit-3.75mg tab [...] diaphragmatic excursion. Lungs clear to auscultation. Heart: Roscoe normal. Precordium quiet. RRR. Normal HS with [...] 2024 TIME: 11:13 AM documented in this encounterSelect Medical Specialty Hospital - [facility]11-21-2024 Telephone encounter Note * Telephone Encounter - Britney Hsu RN - 05/07/2024 7:29 PM EST . [facility]11-21-2024 Miscellaneous Notes* Telephone Encounter - Britney Hsu RN - 05/07/2024 7:29 PM EST . documented in this encounterSelect Medical Specialty Hospital - [facility]11-12-2024 History and physical note * Vic Ponce MD - 04/28/2024 12:30 PM EST HISTORY AND PHYSICAL Sav Cantu Kimberly, 74 year old male Current history and [...] Ponce MD [facility]11-12-2024 History and physical note* Vic Ponce MD [...] None Vic Ponce MD documented in this encounterSelect Medical Specialty Hospital - [facility]11-12-2024 Nurse Note* Jahaira Hood RN - 04/28/2024 [...] (RECOMMENDATION): None [facility]11-12-2024 Nurse Note* Jahaira Hood RN - 04/28/2024 [...] Signed By: Maureen Laughlin documented in this encounterSelect Medical Specialty Hospital - [facility]11-12-2024 Nurse Note* Maureen Laughlin RN - 04/28/2024 [...] Maureen Laughlin [facility]11-06-2024 History of Present illness Narrative* Soni Robbins [...] this RN, 2 attempts by Tonya Wagner food safety technician. Patient requests to try again to have test completed due to long drive to facility. IV started by this RN. IV SITE APPEARANCE: Clean,Dry and Intact SIGNATURE: Soni Robbins RN PATIENT NAME: Sav Raymundo DATE: April 22, 2024 TIME: 10:33 AM * Judy Wagner RT(Sandee) - 04/22/2024 11:30 AM EST Radiology Service [...] PATIENT PRESENTS WITH AN IMPLANTABLE OR ATTACHED BRAND SPECIALIST: No RADIOLOGY DEPARTMENT: CT; Exam(s) Completed: Enterography PERIPHERAL IV DATA: Not applicable SIGNED BY: RT Tyree(Sandee) April 22, 2024 11:55 AM documented in this encounterSelect Medical Specialty Hospital [facility]11-06-2024 NoteMount Carmel Health System11-06-2024 NoteMount Carmel Health System11-05-2024 NoteCALPROTECTIN, FECAL INTERPBorderline elevated. Re-evaluation in 4-6 weeks is recommended if clinically indicated.(A)Umyhoq9704/21/2024 9:04 PM ESTKindred Hospital [facility] on above:Interpretation: <50.0 ug/g: Normal 50.0 ug/g - 120.0 ug/g: Borderline elevated. Re-evaluation in 4-6 weeks is recommended if clinically indicated. >120.0 ug/g: Elevated 04-20-2024 NoteBorderline elevated. Re-evaluation in 4-6 weeks is recommended if clinically indicated.[facility] on above:Order Comment: Specimen Type: STOOL SPECIMENOrdering Facility: [facility] Address:[address] [place], [place] [address]Result Comment: Interpretation:<50.0 ug/g: Dbarqw15.0 ug/g - 120.0 ug/g: Borderline elevated. Re-evaluation in 4-6 weeks is recommended if clinically indicated.>120.0 ug/g: ElevatedPerformed By: #### [id number], [id number], PANCEF ####[facility] LABCLIA [id number] [address] STATES OF [facility] 04-20-2024 Instructions* Patient Instructions* Sue Murillo MD [...] am on dialysis? A: Please consult your curbstone setter prior to scheduling to get instructions pertinent [...] to inadequate prep quality. documented in this encounterSelect Medical Specialty Hospital [facility]11-04-2024 NoteMount Carmel Health System11-04-2024 History of Present illness Narrative* Sue Murillo MD - 04/20/2024 11:46 AM EST NAME: Sav Raymundo [facility] NO: [id number] REASON FOR VISIT Sav Raymundo is a [...] Current Outpatient Medications Medication Sig Dispense Refill [id number]-[id number]-[id number] ORAL Take by mouth. iv contrast (will [...] 20, 2024 11:46 AM documented in this encounterSelect Medical Specialty Hospital [facility]10-15-2024 History of Present illness Narrative* Steffen Mccarty MD - 03/31/2024 4:33 PM EDT Images from the original note were not included. Rheumatology CONSULTATION Date of Service: 03/30/2024 Patient: Sav Raymundo Medical Record: [id number] Primary Care Physician: Yuli Mariscal DO Last Rheumatology visit: 03/30/2024 (with Steffen Villa) Referring Provider: Tita Landry [address] [facility] [address] Sav Raymundo is here today at request of Tita Haywood, [place].[facility] specifically for consultation of my opinion in regards to the chief complaint listed below. Correspondence will be sharedtoday via the [facility] electronic health record or through regular mail, [...] PMHx except for bilateral knee replacements and [place] fracture s/p surgery who presents for evaluation [...] underwent on 11/20/2023 R VATS with R motorcycle mechanic apprentice and doxyxyclyine pleurodesis, pleural biopsy. Biopsy notable [...] Current Medications Current Outpatient Medications Medication Sig [id number]-[id number]-YQNX ORAL Take by mouth. iv contrast (will [...] AI <0.2 Sm Antibody Negative Negative Ribosomal LICENSED AND CERTIFIED MIDWIFE Ab <1.0 AI <0.2 Ribosomal LICENSED AND CERTIFIED MIDWIFE Qualitative Negative Negative Chromatin Ab <1.0 AI <0.2 Chromatin Ab Qual Negative Negative SSA Antibody Qual Negative Negative Anti-SSA <1.0 AI <0.2 Anti-SSB <1.0 AI <0.2 LICENSED AND CERTIFIED MIDWIFE Antibody QUAL Negative Negative Scleroderma Ab Qual [...] on 03/30/2024 Name Date COVID-19 vaccine, monovalent (Coty) 09/13/2020, 08/22/2020, 08/15/2020 influenza (aIIV3) vaccine 05/09/2020 [...] which included preparing to see the patient, zttk-zd-[id number] patient care, completing clinical documentation, obtaining and/or reviewing separately obtained history, performing a medically appropriate examination, and counseling and educating the patient/family/caregiver. Steffen Villa MD Rheumatology Date: March 31, 2024 Time: 4:33 PM documented in this encounterSelect Medical Specialty Hospital [facility]10-01-2024 History of Present illness Narrative* Juan Son, [...] PATIENT PRESENTS WITH AN IMPLANTABLE OR ATTACHED BRAND SPECIALIST: No ALLERGIES: Reviewed and unchanged CONTRAST ALLERGY: [...] 2024 TIME: 4:04 PM documented in this encounterSelect Medical Specialty Hospital - [facility]10-01-2024 NoteHNO ID: [id number] Author: JUAN SON RT(R) Service: Radiology Author Type: Pier Master Type: Progress Notes Filed: 03/17/2024 16:04 Note [...] PATIENT PRESENTS WITH AN IMPLANTABLE OR ATTACHED BRAND SPECIALIST: No ALLERGIES: Reviewed and unchanged CONTRAST ALLERGY: [...] Raymundo DATE: March 17, 2024 TIME: 4:04 [facility] [id number] History of Present illness Narrative* Ruma Oshea PA-C - 03/17/2024 1:30 PM EDT Images from the original note were not included. [facility] - OUTPATIENT THORACIC SURGERY CLINIC NOTE PT NAME: Sav Raymundo [facility] NO: [id number] THORACIC SURGEON: Ronaldo Flood M.D. DATE OF SERVICE: 03/17/2024 PRINCIPAL DX: Pleural Effusion SURGICAL HX 11/20/2023: R VATS pleural biopsy, right motorcycle mechanic apprentice and doxycycline pleurodesis, right Pleurx catheter insertion, [...] 11/20/2023, patient underwent R VATS pleuralbiopsy, right motorcycle mechanic apprentice and doxycycline pleurodesis, right Pleurx catheter insertion, right 20Fr chest tube insertion. He was hospitalized 12/20/23 for anasarca, possible autoimmune disease, recurrent pleural effusion. Imaging did not reveal any acute findings. Patient was admitted to [facility] and started on lasix drip, improving anasarca and pleural effusion. Pleurx catheter was drained daily with significantly decreasing output [phone]. He was worked up for an autoimmune [...] presents to clinic today for postoperative visit. C RN called in 03/03 reporting increase in [...] effusion s/p R VATS pleural biopsy, right motorcycle mechanic apprentice and doxycycline pleurodesis, right Pleurx catheter insertion, right 20Fr chest tube insertion on 11/20/[address] Flood. He was hospitalized 12/20/23 for anasarca, possible autoimmune disease, and recurrent pleural effusion. Imaging did not reveal any acute findings. Patient was admitted to [facility] and started on lasix drip, with improving anasarca and pleural effusion. Pleurx catheter was drained daily with significantly decreasing output [phone]. He was worked up for an autoimmune disease as well. He was discharged on an increased dose of lasix (20mg > 80mg) and started on Plaquenil. PLAN: - continue draining pleurx every 3 days - call our office if any new or worsening symptoms - follow up with elevator adjuster 04/13 for their recommendations - discussed with patient to reach out to our office with rheum recommendations, as well as if pleurx output has significantly decreased to discuss removing pleurx Ruma Oshea PA-C documented in this encounterSelect Medical Specialty Hospital [facility]10-01-2024 NoteHNO ID: [id number] Author: RUMA OSHEA PA-C Service: ? Author Type: Physician Still Photographer Type: Progress Notes Filed: 03/17/2024 14:26 Note Text: [facility] - OUTPATIENT THORACIC SURGERY CLINIC NOTE PT NAME: Rosamond Pepe [facility] NO: [id number] THORACIC SURGEON: Ronaldo Flood M.D. 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 Right pleura, biopsy: - Chronic pleuritis with mesothelial hyperplasia (see comment). B. Right pleura, biopsy: - Acute organizing and chronic pleuritis (see comment). ND/ 11/22/2023 Diagnosis Comment A. 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 He was hospitalized 12/20/23 for anasarca, possible autoimmune disease, recurrent pleural effusion. Imaging did not reveal any acute findings. Patient was admitted to [facility] and started on lasix drip, improving anasarca and pleural effusion. Pleurx catheter was drained daily with significantly decreasing -[phone]. He was worked up for an autoimmune [...] presents to clinic today for postoperative visit. [facility] RN called in 03/03 reporting increase in output from pleurX. Drainage schedule at that time was switchde to 3x weekly until output slows down. Prednisone course finished, plaquenil increased to BID. Patient with increase in weight and 2+ pitting BLE. Seen by pulmonary today, follow up with rheum 04/13. Patient notes today (more content not included)...[facility] 03-17-2024 History of Present illness Narrative* Was, Wes Cantu RRT - 03/17/2024 1:29 PM EDT PULM FUNCTION: Provider: Louise Cesar MD DLCO: 1 LV - Box: 1 documented in this encounterSelect Medical Specialty Hospital [facility]10-01-2024 Instructions* Patient Instructions* Louise Cesar MD - [...] Cesar MD Pulmonary and Critical Care Medicine [facility] documented in this encounterSelect Medical Specialty Hospital [facility]10-01-2024 NoteHNO ID: [id number] Author: LOUISE CESAR MD Service: ? Author Type: Physician Type: Progress Notes Filed: 03/18/2024 08:55 Note Text: Mr. Raymundo is a 74 year old male who presents to the [facility]. Consultation requested by Dr. Hopper and Dr. Ronaldo Flood. My final recommendations/evaluation will be communicated back to the requesting physician by way of shared medical record or letter via [place] mail. This note was partially created using [employer] Voice recognition software and is inherently subject to errors including those of syntax and ?sound-alike? substitutions which may escape proofreading. In such instances, original meaning may be extrapolated by contextual derivation. 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 Mr. Kumar presents with an interesting history. 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 He underwent thoracentesis several times, each time pleural fluid analysis showed exudative fluid. CT scan was obtained locally which did not reveal much except pleural effusion. CT scan also shows pericardial effusion. He was then referred by his local data clerk to [facility] for a pleurodesis. In November 2023, he underwent VATS pleurodesis (mechanical and doxycycline), with pleural biopsy, and the Pleurx catheter was also placed. Analysis of the pleural fluid and biopsies of the pleura showed acute and chronic pleuritis with organization, but no malignancy. We do not have pleural fluid chemical or hematological analysis done in [facility], but cytology was negative for malignant cells. He was discharged with Pleurx catheter, and and has been draining pleural fluid about 500 to 800 mL every other day. And his dry cough has also been persistent. In December 2023, he was sent to [facility] after seeing thoracic surgery ADRIENNE for [...] He is scheduled to see rheumatology in [facility] in the next 2 weeks. Of [...] a history of c (more content not included)...[facility]10-01-2024 History of Present illness Narrative* Louise Cesar MD - 03/17/2024 10:46 AM EDT Images from the original note were not included. Mr. Raymundo is a 74 year old male who presents [facility] the [facility]. Consultation requested by Dr. Hopper and Dr. Ronaldo Flood. My final recommendations/evaluation will be communicated back to the requesting physician by way of shared medical record or letter via [place] mail. This note was partially created using Vi[employer] Voice recognition software and is inherently subject to errors including those of syntax and sound-alike substitutions which may escape proofreading.In such instances, original meaning may be extrapolated by contextual derivation. 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 Mr. Kumar presents with an interesting history. 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 He underwent thoracentesis several times, each time pleural fluid analysis showed exudative fluid. CT scan was obtained locally which did not reveal much except pleural effusion. CT scan also shows pericardial effusion. He was then referred by his local data clerk to [facility] for a pleurodesis. In November 2023, he underwent VATS pleurodesis (mechanical and doxycycline), with pleural biopsy, and the Pleurx catheter was also placed. Analysis of the pleural fluid and biopsies of the pleura showed acute and chronic pleuritis with organization, but no malignancy. We do not have pleural fluid chemical or hematological analysis done in [facility], but cytology was negative for malignant cells. He was discharged with Pleurx catheter, and and has been draining pleural fluid about 500 to 800 mLevery other day. And his dry cough has also been persistent. In December 2023, he was sent to [facility] after seeing thoracic surgery ADRIENNE for [...] He is scheduled to see rheumatology in [facility] in the next 2 weeks. Of [...] overload/CHF?, chronic cough - local PCP, has [facility] PCP, Dr. Flood (Thoracic), scheduled to see elevator adjuster in [facility] Main [place] Social:Lives near [place], in own house, with , no pets, adult kids, just 1 daughter who lives in [place], 2 grand-kids, no lung disease in the [...] Onset Heart Father Allergies: Tramadol Outpatient Medications: [id number] ORAL Take by mouth. diclofenac (VOLTAREN) 1 [...] personally reviewed by me Data Reviewed from [facility] (in addition to that noted in HPI, and Past histories above): CMP, CBC Testing data, personally reviewed and interpreted by me: PFT, Imaging, Labs, CVS data. Assessment: Sav Raymundo is a 74 year old male presents for evaluation/follow-up of: for chronic cough and recurrent right-sided pleural effusion s/p R-VATS pleural biopsy, right motorcycle mechanic apprentice and doxycycline pleurodesis, right Pleurx catheter insertion, [...] PCP, Dr. Flood (Thoracic), scheduled to see elevator adjuster in [facility] [place] Social:Lives near [place], in own house, with , no pets, adult kids, just 1 daughter who lives in [place], 2 grand-kids, no lung disease in the [...] which included preparing to see the patient, [id number] patient care, completing clinical documentation, obtaining and/or reviewing separately obtained history, performing a medically appropriate examination, counseling and educating the pat ient/family/caregiver, ordering medications, tests, or procedures, independently interpreting results (not separately reported), and care coordination (not separately reported). Louise Cesar MD documented in this encounterSelect Medical [facility]10-01-[facility]24 Nurse Note* Jacqueline García RN - 03/17/2024 10:17 AM EDT Sav Raymundo is a very pleasant 74 year old male who presents today for pleural effusion (November 19), still has chest drainage tube Pleurex tube After surgery, fluid still gathering around right lung. Last seen by Pulmonary Doctor? Dr. Clemente in [facility] [place]. Outside of [facility]. Is Dr. Cesar on Care Team as Station Worker? no Meds reviewed - Refills pended?no Since last seen Have you had any resp illnessses, COVID, exacerbations or recent visits to ER?hospital/Urgent-Care? [place] December 19 x 1 week, Vaccines: Immunization History Administered Date(s) Administered COVID-19 original vaccine, age 12+ yr, monovalent (Coty - PURPLE TOP) 08/15/2020 08/22/2020 09/13/2020 05/10/2021 influenza (aIIV3) vaccine, age 65+ yr, trivalent, PF (FLUAD) 05/09/2020 pneumococcal conjugate (PCV13) vaccine, 13 valent (PREVNAR 13) 11/26/2016 pneumococcal polysaccharide (PPV23) vaccine, 23 valent (PNEUMOVAX 23) 02/03/2018 tetanus diphtheria (Td) vaccine, age 7+ yr, 5 Lf tetanus, PF (TENIVAC) 06/04/2018 08/30/2018 zoster (RZV) vaccine, recombinant (SHINGRIX) 08/30/2018 Modified [employer] [place] Dyspnea Scale (MMRC) I stop for breath after walking about 100 yards or after a few minutes on level ground 3 Patient Entered Questionnaires 10/23/2023 PROMIS Global Health - (T-Scores - the mean of general population = 50. Five points is a clinicallymeaningful difference.) Physical T-Score 44.9 Mental T-Score 43.5 [facility]10-01-2024 Nurse Note* Jacqueline García RN - 03/17/2024 10:17 AM EDT Sav Raymundo is a very pleasant 74 year old male who presents today for pleural effusion (November 19), still has chest drainage tube Pleurex tube After surgery, fluid still gathering around right lung. Last seen by Pulmonary Doctor? Dr. Clemente in [facility]. Outside of [facility]. Is Dr. Cesar on Care Team as Station Worker? no Meds reviewed - Refills pended?no Since last seen Have you had any resp illnessses, COVID, exacerbations or recent visits to ER?hospital/Urgent-Care? [place] December 19 x 1 week, Vaccines: Immunization History Administered Date(s) Administered COVID-19 original vaccine, age 12+ yr, monovalent (Coty - PURPLE TOP) 08/15/2020 08/22/2020 09/13/2020 05/10/2021 influenza (aIIV3) vaccine, age 65+ yr, trivalent, PF (FLUAD) 05/09/2020 pneumococcal conjugate (PCV13) vaccine, 13 valent (PREVNAR 13) 11/26/2016 pneumococcal polysaccharide (PPV23) vaccine, 23 valent (PNEUMOVAX 23) 02/03/2018 tetanus diphtheria (Td) vaccine, age 7+ yr, 5 Lf tetanus, PF (TENIVAC) 06/04/2018 08/30/2018 zoster (RZV) vaccine, recombinant (SHINGRIX) 08/30/2018 Modified [employer] [place] Dyspnea Scale (MMRC) I stop for breath after walking about 100 yards or after a few minutes on level ground 3 Patient Entered Questionnaires 10/23/2023 PROMIS Global Health - (T-Scores - the mean of general population = 50. Five points is a clinicallymeaningful difference.) Physical T-Score 44.9 Mental T-Score 43.5 documented in this encounterSelect Medical Specialty [facility]10-01-2024 History of Present illness Narrative* Alan Delgado [...] PATIENT PRESENTS WITH AN IMPLANTABLE OR ATTACHED BRAND SPECIALIST: N/A RADIOLOGY DEPARTMENT: General X-ray: Exam(s) Completed: Chest X-Ray PERIPHERAL IV DATA: Not applicable SIGNED BY: Lilia CANTU(R) March 17, 2024 8:38 AM documented in this encounterSelect Medical Specialty Hospital [facility]10-01-2024 NoteHNO ID: [id number] Author: ALAN DELGADO RT(R) Service: Radiology Author [...] PATIENT PRESENTS WITH AN IMPLANTABLE OR ATTACHED BRAND SPECIALIST: N/A RADIOLOGY DEPARTMENT: General X-ray: Exam(s) Completed: Chest X-Ray PERIPHERAL IV DATA: Not applicable SIGNED BY: Lilia CANTU(R) March 17, 2024 8:[address] [facility]10-01-2024 NoteHNO ID: [id number] Author: [place] RRT Service: ? Author Type: Registered Resp Therapist Type: Progress Notes Filed: 03/17/2024 08:16 Note Text: PULM FUNCTION: Provider: Katerina Bravo APRN.CNP Spirometry: 1 Exhaled Nitric Oxide: [address] [place], [place] [address]610-01-2024 History of Present illness Narrative* hCelsy Hills RRT - 03/17/2024 8:16 AM EDT PULM FUNCTION: Provider: Katerina Bravo APRN.CNP Spirometry: 1 Exhaled Nitric Oxide: 1 documented in this encounterSelect Medical Specialty Hospital [facility]10-01-2024 NoteHNO ID: [id number] Author: [place] RRT Service: ? Author [...] Raymundo DATE: March 17, 2024 TIME: 8:[address] [facility]10-01-2024 Procedure note* Chelsy Hills RRT - [...] DATE: March 17, 2024 TIME: 8:[address] [facility]10-01-2024 Procedure note* [place]sy [place] RRT - [...] 2024 TIME: 8:16 AM documented in this encounterSelect Medical Specialty [facility]09-17-2024 Telephone encounter Note * Telephone Encounter - Wes Lorenzana RN - 03/03/2024 10:55 AM EDT Images from the original note were not included. [facility] Resource [place] Phone Encounter DATE of SERVICE: 03/03/2024 TIME of SERVICE: 10:56 AM Status: FYI Service/Provider: Thoracic Surgery Ronaldo Flood M.D. Reason for call: Other Issue Contact information: [phone] Resolution: Sent to [employer] Comments: Please call [facility] EVAN Campos back at [phone]. Wes Lorenzana RN Date of Resolution: 03/03/2024 Time of Resolution 10:56 AM [facility]-17-2024 Miscellaneous Notes* Telephone Encounter - Wes Lorenzana RN - 03/03/2024 10:55 AM EDT Images from the original note were not included. [facility] [place] Phone Encounter DATE of SERVICE: 03/03/2024 TIME of SERVICE: 10:56 AM Status: FYI Service/Provider: Thoracic Surgery Ronaldo Flood M.D. Reason for call: Other Issue Contact information: [phone] Resolution: Sent to [employer] Comments: Please call [facility] EV[facility] Campos back at [phone]. Wes Lorenzana RN Date of Resolution: 03/03/2024 Time of Resolution 10:56 AM documented in this encounterSelect Medical Specialty [facility]09-17-2024 Telephone encounter Note * Telephone Encounter - Wes Lorenzana RN - 03/03/2024 10:50 AM EDT Beth [facility] called back. Please give call when able. [facility]09-17-2024 Miscellaneous Notes* Telephone Encounter - Wes Lorenzana RN - 03/03/2024 10:50 AM EDT Beth [facility] called back. Please give call when able. * Telephone Encounter - Tita Landry APRN.CNP - 03/03/2024 10:46 AM EDT Returned [facility] R[facility] phone call. States patient's pleurx output [...] Dr. Hopper's office to update him. Instructed [facility] RN to increase draining to three times weekly until output slows back down. Instructed to have patient call Dr. Hopper's office to schedule an appointment for evaluation of worsening edema and weight gain. Tita Landry APRN.CNP 03/03/2024 10:46 AM * Telephone Encounter - Sherie Payne RN - 03/03/2024 9:54 AM EDT Beth from [facility] [phone] She wanted to speak with Tita Rodriguez CNP. documented in this encounterSelect Medical Specialty [facility]09-17-2024 Telephone encounter Note * Telephone Encounter - Tita Landry APRN.CNP - 03/03/2024 10:46 AM EDT Returned [facility] RNBeth's phone call. States patient's pleurx output [...] Dr. Hopper's office to update him. Instructed [facility] RN to increase draining to three times weekly until output slows back down. Instructed to have patient call Dr. Hopper's office to schedule an appointment for evaluation of worsening edema and weight gain. Tita Landry APRN.CURT 03/03/2024 10:46 AM [facility]-17-2024 Telephone encounter Note* Telephone Encounter - Sherie Payne RN - 03/03/2024 9:54 AM EDT Beth from [facility] [phone] She wanted to speak with Tita Rodriguez CNP. [facility]09-06-2024 Telephone encounter Note* Telephone Encounter - Patricia Bermudez RN - 02/21/2024 10:14 AM EDT spoke with [facility] RN Beth , steph notes he has some internal discomfort randomly [...] pleurex at home on their own) PH [phone] [facility] RN. will review updates above with FADI and await any updates appt with shirley 03/17 and rhediana 04/13 for followup Patricia Bermudez RN [facility]09-06-2024 Miscellaneous Notes* Telephone Encounter - Patricia Bermudez RN - 02/21/2024 10:14 AM EDT spoke with [facility] RN Beth , pt notes he [...] pleurex at home on their own) PH [phone] [facility] RN. will review updates above with CURT/ and await any updates appt with dorita and margaret 03/17 and rhediana 04/13 for followup Patricia Bermudez RN documented in this encounterSelect Medical Specialty [facility]08-28-2024 History of Present illness Narrative* Jose Antonio [...] excursion. Lungs clear to auscultation.+Pleurax catheter Heart: Roscoe normal. Precordium quiet. RRR. Normal HS with [...] 200 MG TABLET - Will see a elevator adjuster on 04/13/2024 2. Primary hypertension - ICD9: [...] 2024 TIME: 11:22 AM documented in this encounterSelect Medical Specialty [facility]08-27-2024 History of Present illness Narrative* Yehuda Dial [...] reviewing the medication list, performing clinical documentation, pwlr-wg-puch history, the examination, counseling the patient, ordering medications, tests or procedures and communicating the results to this patient. An opportunity for this individual to ask questions was provided. Understanding of the information given, the conclusions of this visit and my recommendations were acknowledged by Mr. Raymundo. Yehuda Dial MD documented in this encounterSelect Medical Specialty Hospital [facility]08-20-2024 NoteHNO ID: [id number] Author: TITA LANDRY APRN.CNP Service: ? Author Type: Nurse Practitioner Type: Progress Notes Filed: 02/05/2024 16:19 Note Text: [facility] [place] DEPARTMENT OF THORACIC SURGERY OUTPATIENT VISIT DATE February 04, 2024 OUTPATIENT VISIT TYPE ESTABLISHED PT NAME: Sav Cantu [facility] NO: [id number] THORACIC SURGEON: Ronaldo Flood M.D. DATE OF SERVICE: 02/04/2024 PRINCIPAL DX: Pleural Effusion SURGICAL HX 11/20/2023: R VATS pleural biopsy, right motorcycle mechanic apprentice and doxycycline pleurodesis, right Pleurx catheter insertion, right 20Fr chest tube insertion Surgical Pathology 11/20/2023: FINAL DIAGNOSIS A. Right pleura, biopsy: - Chronic pleuritis with mesothelial hyperplasia (see comment). B. Right pleura, biopsy: - Acute organizing and chronic pleuritis (see comment). ND/ 11/22/2023 Diagnosis Comment A. 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 He was hospitalized 12/20/23 for anasarca, possible autoimmune disease, recurrent pleural effusion. Imaging did not reveal any acute findings. Patient was admitted to [facility] and started on lasix drip, improving anasarca and pleural effusion. Pleurx catheter was drained daily with significantly decreasing [id number]. He was worked up for an autoimmune [...] denies any fevers, chills, (more content not included)...[facility] 02-04-2024 History of Present illness Narrative* Tita Landry APRN.SET UP MECHANIC AUTOMATIC LINE - 02/04/2024 1:28 PM EDT Heart, V[facility] [place] DEPARTMENT OF THORACIC SURGERY OUTPATIENT VISIT DATE February 04, 2024 OUTPATIENT VISIT TYPE ESTABLISHED PT NAME: Sav Raymundo CLINIC NO: [id number] THORACIC SURGEON: Ronaldo Flood M.D. DATE OF SERVICE: 02/04/2024 PRINCIPAL DX: Pleural Effusion SURGICAL HX 11/20/2023: R VATS pleural biopsy, right motorcycle mechanic apprentice and doxycycline pleurodesis, right Pleurx catheter insertion, right 20Fr chest tube insertion Surgical Pathology 11/20/2023: FINAL DIAGNOSIS A. Right pleura, biopsy: - Chronic pleuritis with mesothelial hyperplasia (see comment). B. Right pleura, biopsy: - Acute organizing and chronic pleuritis (see comment). ND/ 11/22/2023 Diagnosis Comment A. The biopsy contains [...] 11/20/2023, patient underwent R VATS pleuralbiopsy, right motorcycle mechanic apprentice and doxycycline pleurodesis, right Pleurx catheter insertion, right 20Fr chest tube insertion. He was hospitalized 12/20/23 for anasarca, possible autoimmune disease, recurrent pleural effusion. Imaging did not reveal any acute findings. Patient was admitted to [facility] and started on lasix drip, improving anasarca and pleural effusion. Pleurx catheter was drained daily with significantly decreasing output [phone]. He was worked up for an autoimmune [...] He is scheduled to see PCP and Cable Layer next week. He has followed-up with local Station Worker, and was referred to Station Worker at [facility], which is scheduled on 03/17 with spirometry. Right pleurx drainage has significantly decreased since last visit; now less than 350cc/drainage every MWF. Right pleurx catheter with 150 cc of awilda drainage out in clinic today. IMPRESSION: 73 year old male with pmh significant for recurrent right pleural effusion s/p R VATS pleural biopsy, right motorcycle mechanic apprentice and doxycycline pleurodesis, right Pleurx catheter insertion, right 20Fr chest tube insertion on 11/20/[address] Flood. He was hospitalized 12/20/23 for anasarca, possible autoimmune disease, and recurrent pleural effusion. Imaging did not reveal any acute findings. Patient was admitted to [facility] and started on lasix drip, with improving anasarca and pleural effusion. Pleurx catheter was drained daily with significantly decreasing output [phone]. He was worked up for an autoimmune [...] information, and changes appropriately documented/adjusted. Tita Landry APRN.SET UP MECHANIC AUTOMATIC LINE documented in this encounterSelect Medical Specialty [facility]08-05-2024 Telephone encounter Note * Telephone Encounter - Jahaira Wood - 01/20/2024 3:35 PM EDT Received Pulmonary office note 01/15/24 from [facility] Record scanned in [facility] Jahaira Wood, red hat linux administrator [facility]08-05-2024 Miscellaneous Notes* Telephone Encounter - Jahaira Wood - 01/20/2024 3:35 PM EDT Received Pulmonary office note 01/15/24 from [facility] Record scanned in [place] Jahaira Wood, red hat linux administrator documented in this encounterSelect Medical Specialty [facility]07-31-2024 History of Present illness Narrative* Jose Antonio [...] excursion. Lungs decreased BS in bases Heart: Roscoe normal. Precordium quiet. RRR. Normal HS with [...] 2024 TIME: 12:34 PM documented in this encounterSelect Medical Specialty [facility]07-22-2024 History of Present illness Narrative* Yehuda Dial MD - 01/06/2024 5:01 PM EDT SUBJECTIVE: The chief complaint is right pleural effusion Mr. Raymundo relates that the visiting nurse comes to his house and drains 500 to 1000+ cc of pleural fluid every 2 days. He is concerned about taking a vacation to [place] for that reason. In addition, he complains [...] reviewing the medication list, performing clinical documentation, whym-qt-poea history, the examination, counseling the patient, ordering medications, tests or procedures and communicating the results to this patient. An opportunity for this individual to ask questions was provided. Understanding of the information given, the conclusions of this visit and my recommendations were acknowledged by Mr. Raymundo. Yehuda Dial MD documented in this encounterSelect Medical Specialty [facility]07-22-2024 History of Present illness Narrative* Katerina Bravo APRN.SET UP MECHANIC AUTOMATIC LINE - 01/06/2024 3:53 PM EDT Dear Ruma Oshea PA-C, Thank you for the referral of Sav Cantu Kimberly for evaluation. Chronic Cough E-consult - Chart Reviewed. Chronic Cough: x 04/2024 History of prior Pulm evaluation: yes; Dr. Clemente with [facility] Prior PFTs: unable to locate Prior Chest [...] locate. Will need to request records from [facility]'s where he data clerk is. Please arrange the following testing to be done prior to visit: Spirometry with dilator if obstructed Nitric Oxide Katerina Bravo APRN Pulmonary Medicine 01/06/2024 documented in this encounterSelect Medical Specialty [facility]07-22-2024 History of Present illness Narrative* Ruma Oshea PA-C - 01/06/2024 2:00 PM EDT Images from the original note were not included. [facility] - OUTPATIENT THORACIC SURGERY CLINIC NOTE PT NAME: Sav Cantu Kimberly CLINIC NO: [id number] THORACIC SURGEON: Ronaldo Flood M.D. 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 Patient was admitted to [facility] and started on lasix drip, improving anasarca and pleural effusion. Pleurx catheter was drained daily with significantly decreasing output [phone]. He was worked up for an autoimmune [...] clinic. Patient does have follow up with elevator adjuster today and data clerk next week. Will fax over recent medical information to data clerk. Patient also going on a bus trip [...] effusion s/p R VATS pleural biopsy, right motorcycle mechanic apprentice and doxycycline pleurodesis, right Pleurx catheter insertion, [...] other day. PLAN: - follow up with MEMBERSHIP COUNSELOR in 4 weeks with CXR; sooner if experiencing new or worsening symptoms - continue to drain pleurx every other day / when symptomatic - follow up with data clerk Dr. Clemente - referral placed for chronic cough clinic - will send over OR report, pathology report, recent hospital discharge, recent CXR report, and today's clinic note to data clerk Dr. Bryn Oshea PA-C documented in this encounterSelect Medical Specialty [facility]07-22-2024 NoteHNO ID: [id number] Author: RUMA OSHEA PA-C Service: ? Author Type: Physician Still Photographer Type: Progress Notes Filed: 01/06/2024 14:58 Note Text: [facility] - OUTPATIENT THORACIC SURGERY CLINIC NOTE PT NAME: Sav Raymundo [facility] NO: [id number] THORACIC SURGEON: Ronaldo Flood M.D. 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 Patient was admitted to [facility] and started on lasix drip, improving anasarca and pleural effusion. Pleurx catheter was drained daily with significantly decreasing output [phone]. He was worked up for an autoimmune [...] clinic. Patient does have follow up with elevator adjuster today and data clerk next week. Will fax over recent medical information to data clerk. Patient also going on a bus trip [...] effusion s/p R VATS pleural biopsy, right motorcycle mechanic apprentice and doxycycline pleurodesis, right Pleurx catheter insertion, right 20Fr chest tube insertion on 11/20/[address] Flood. Patient overall doing well from a clinical standpoint. CXR from today is still pendin (more content not included)...[facility]07-22-2024 History of Present illness Narrative* Sherie Carrion [...] PATIENT PRESENTS WITH AN IMPLANTABLE OR ATTACHED BRAND SPECIALIST: No RADIOLOGY DEPARTMENT: General X-ray: Exam(s) Completed: Chest X-Ray PERIPHERAL IV DATA: Not applicable SIGNED BY: RT Abbi(R) January 06, 2024 1:08 PM documented in this encounterSelect Medical Specialty [facility]07-22-2024 NoteHNO ID: [id number] Author: SHERIE CARRION RT(Sandee) Service: Radiology Author Type: Technologist Type: Progress [...] PATIENT PRESENTS WITH AN IMPLANTABLE OR ATTACHED BRAND SPECIALIST: No RADIOLOGY DEPARTMENT: General X-ray: Exam(s) Completed: Chest X-Ray PERIPHERAL IV DATA: Not applicable SIGNED BY: RT Abbi(R) January 06, 2024 1:08 [facility]MPam [facility]-2024 NoteHNO ID: [id number] Author: LUPE BAUER RN Service: Care Management [...] the inter-professional team: Yes Name of Caregiver: [facility] Transportation Arrangements Transportation Arrangements: Car Discharge Information Row Name ED to Hosp-Admission (Current) from 12/20/[address] [facility] Start of Care -- agency will contact patient Spouse at bedside to transport home. DC arrangements confirmed with patient, spouse, C, and bedside nurse. 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 Nuclear Med Report: [id number] PLANAR and SPECT: Myocardial imaging of the chest with CT attenuation correction was performed at 3 hours post IV injection of Tc-99m Pyrophosphate. See administered doses below. 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 CT Dose R (more content not included)...[facility]07-10-2024 NoteHNO ID: [id number] Author: RAFIA TOVAR RT(R) Service: Nuclear Medicine [...] PATIENT PRESENTS WITH AN IMPLANTABLE OR ATTACHED BRAND SPECIALIST: No CREATININE: Creatinine Date Value Ref Range [...] documentation POST EXAM PIV STATUS: Inpatient see [facility] documentation PROCEDURE TYPE: NM INJECT: AMYLOID SPECT CT. 24.0 mCi Tc99m HDP. No other medications given.. ADMINISTRATION TIME: 1100 PATIENT DISCHARGED TO: Patient taken to IP transport area for return to RNF/ICU/ED. A Diagnostic radioactive procedure has taken place, with no further precautions necessary other than routine body substance precautions. More information regarding radiation safety can be found using this link: [email or web address] 20Diagnostic%20Nuclear%20Medicine%20Procedures.pdf SIGNATURE: RT Seema(R) PATIENT NAME: Sav Raymundo DATE: December 25, 2023 TIME: 11:01 AM PAGER/CONTACT #:[facility]07-09-2024 NoteHNO ID: [id number] Author: JOSE ANTONIO HOPPER MD Service: Family [...] MD DATE: December 24, 2023 TIME: 8:[address] [facility]07-08-2024 NoteHNO ID: [id number] Author: JOSE ANTONIO HOPPER MD Service: Family [...] MD DATE: December 23, 2023 TIME: 4:11 [facility]24 NoteHNO ID: [id number] Author: LUPE BAUER RN Service: Care Management [...] is active with [facility] for intermediate and pleurx supplies. Plan home with resumption of [facility]. Will need home care orders for SN prior to discharge. CM following. SIGNATURE: Lupe Bauer RN PATIENT NAME: Sav Raymundo DATE: December 23, 2023 TIME: 2:04 PM PAGER/CONTACT #: [phone] NoteHNO ID: [id number] Author: RUMA OSHEA PA-C Service: Thoracic Surgery Author Type: Physician Still Photographer Type: Plan of Care Filed: 12/23/2023 07:53 Note Text: PLEASE PAGE [phone] WITH SURGICAL QUESTIONS OR CONCERNS. (This includes issues with chest tubes, surgical drains, feeding tubes, incisions or changes in clinical status). Thoracic Surgery - Plan of Care HPI: Sav Raymundo is a 73 y/o male referred by Alpa Oliva CNP for an opinion regarding management of recurrent right pleural effusion. 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, right Pleurx catheter insertion [...] Dwight Oshea PA-C 12/23/2023 7:48 AM PAGER [phone]-2024 NoteHNO ID: [id number] Author: JOSE ANTONIO HOPPER MD Service: Family [...] MD DATE: December 22, 2023 TIME: 11:[address] [facility]07-06-2024 NoteHNO ID: [id number] Author: TRACY ROBLES LSW Service: Care Management Author Type: Reference Assistant Type: Care Mgt Initial Assessment Filed: 12/21/2023 13:04 Note Text: CARE MANAGEMENT: ASSESSMENT AND DISCHARGE PLAN SERVICE DATE: December 21, 2023 SERVICE TIME: 1:02 PM PCP: Yuli Mariscal DO Primary Contact: Extended Emergency Contact Information Primary Emergency Contact: Kimberly(HCPOA) Virgen Address: [address] [place] [address] [place] [address] [facility] Mobile Relation: Spouse Secondary Emergency Contact: Kimberly(1st alt HCPOADeysi Espino Address: [address] [place] [id number] Mobile Relation: Brother Admission Status: Inpatient Insurance Provider: [employer] MED[employer]ARE PPO Discharge Planning requested by: Per Department Practice Potential Transition Plans To Be Determined;Home Care Advance Directives Current Advance Directive: Health Care Power of Mitten Stitcher;Living Will In Chart: Yes Current Living Arrangements and Support Lives with: Spouse/significant other Type of Residence: Support: How do you manage to accomplish the following: Independent: Ambulation Current Services/Equipment Current Post-Acute Service(s): Skilled Home Care Discharge Planning Patient Goal(s): Be able to go home, General wellness [place] of [place] Explained: [place] of [place] Given: Yes Level of Care [...] CM to follow for dc needs NEED [facility] ORDER. SIGNATURE: BERTA Benson PATIENT NAME: Sav Raymundo DATE: December 21, 2023 TIME: 1:02 PM CONTACT #: .[facility]07-05-2024 NoteHNO ID: [id number] Author: TITA LANDRY APRN.CURT Service: ? Author Type: Nurse Practitioner Type: Progress Notes Filed: 01/19/2024 21:56 Note Text: Heart, Vascular and Thoracic [facility] DEPARTMENT OF THORACIC SURGERY OUTPATIENT VISIT DATE December 20, 2023 OUTPATIENT VISIT TYPE ESTABLISHED PT NAME: Sav Raymundo CLINIC NO: [id number] THORACIC SURGEON: Ronaldo Flood M.D. 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 Right pleura, biopsy: - Chronic pleuritis with mesothelial hyperplasia (see comment). B. Right pleura, biopsy: - Acute organizing and chronic pleuritis (see comment). ND/ 11/22/2023 Diagnosis Comment A. The biopsy contains [...] reports pain along bot (more content not included)...[facility]07-05-2024 History of Present illness Narrative* Tita Landry APRN.SET UP MECHANIC AUTOMATIC LINE - 12/20/2023 1:43 PM EDT Heart, Vascular and [facility]acic [facility] DEPARTMENT OF THORACIC SURGERY OUTPATIENT VISIT DATE December 20, 2023 OUTPATIENT VISIT TYPE ESTABLISHED PT NAME: Sav Raymundo CLINIC NO: [id number] THORACIC SURGEON: Ronaldo Flood M.D. 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 Right pleura, biopsy: - Chronic pleuritis with mesothelial hyperplasia (see comment). B. Right pleura, biopsy: - Acute organizing and chronic pleuritis (see comment). ND/ 11/22/2023 Diagnosis Comment A. The biopsy contains [...] effusion s/p R VATS pleural biopsy, right motorcycle mechanic apprentice and doxycycline pleurodesis, right Pleurx catheter insertion, [...] documented/adjusted. Tita Landry APRN.CURT documented in this encounter[facility] Miscellaneous Notes* Telephone Encounter - Pearl Lopez I, RN - 12/17/2023 9:39 AM EDT Images from the original note were not included. [facility] Phone Encounter DATE of SERVICE: 12/17/2023 TIME of SERVICE: 9:39 AM Status: Non-urgent, needs attention Service/Provider: Thoracic Surgery Ronaldo Flood M.D. Reason for call: Other Issue Contact information: [phone] Resolution: Sent to [facility] Comments: Received call from [facility] Nurse. States she saw patient yesterday. [...] he can wait to be seen thisfriday. [facility] will be there tomorrow. Please advise if any further recommendations Pearl Lopez RN Date of Resolution: 12/17/2023 Time of Resolution 9:39 AM documented in this encounterSelect [facility]-2024 Telephone encounter Note * Telephone Encounter - Pearl Lopez I, RN - 12/17/2023 9:39 AM EDT Images from the original note were not included. [facility] Phone Encounter DATE of SERVICE: 12/17/2023 TIME of SERVICE: 9:39 AM Status: Non-urgent, needs attention Service/Provider: Thoracic Surgery Ronaldo Flood M.D. Reason for call: Other Issue Contact information: [phone] Resolution: [facility] Comments: Received call from [facility] Nurse. States she saw patient yesterday. [...] he can wait to be seen thisfriday. [facility] will be there tomorrow. Please advise if any further recommendations Pearl Lopez RN Date of Resolution: 12/17/2023 Time of Resolution 9:39 AM [facility]06-28-2024 NoteHNO ID: [id number] Author: TITA LANDRY APRN.CURT Service: ? Author Type: Nurse Practitioner Type: Progress Notes Filed: 01/16/2024 22:44 Note Text: Heart, Vascular and [facility]acic [facility] DEPARTMENT OF THORACIC SURGERY OUTPATIENT VISIT DATE December 13, 2023 OUTPATIENT VISIT TYPE ESTABLISHED PT NAME: [facility] NO: [id number] THORACIC SURGEON: Ronaldo Flood M.D. DATE OF SERVICE: 12/13/2023 PRINCIPAL DX: Pleural Effusion SURGICAL HX 11/20/2023: R VATS pleural biopsy, right motorcycle mechanic apprentice and doxycycline pleurodesis, right Pleurx catheter insertion, right 20Fr chest tube insertion Surgical Pathology 11/20/2023: FINAL DIAGNOSIS A. Right pleura, biopsy: - Chronic pleuritis with mesothelial hyperplasia (see comment). B. Right pleura, biopsy: - Acute organizing and chronic pleuritis (see comment). ND/ 11/22/2023 Diagnosis Comment A. The biopsy contains [...] effusion s/p R VATS pleural biopsy, right motorcycle mechanic apprentice and doxycycline pleurodesis, right Pleurx catheter insertion, right 20Fr chest tube insertion on 11/20/[address] Flood. Patient overall doing (more content not included)...[facility] History of Present illness Narrative* Tita Landry APRN.SET UP MECHANIC AUTOMATIC LINE - 12/13/2023 1:27 PM EDT Heart, Vascular and [facility]acic [facility] DEPARTMENT OF THORACIC SURGERY OUTPATIENT VISIT DATE December 13, 2023 OUTPATIENT VISIT TYPE ESTABLISHED PT NAME: Sav Raymundo CLINIC NO: [id number] THORACIC SURGEON: Ronaldo Flood M.D. DATE OF SERVICE: 12/13/2023 PRINCIPAL DX: Pleural Effusion SURGICAL HX 11/20/2023: R VATS pleural biopsy, right motorcycle mechanic apprentice and doxycycline pleurodesis, right Pleurx catheter insertion, [...] reactive proliferation. Drs. Della Subramanian and Zeus Akrichardsonmiko have also reviewed this case and agree [...] effusion s/p R VATS pleural biopsy, right motorcycle mechanic apprentice and doxycycline pleurodesis, right Pleurx catheter insertion, right 20Fr chest tube insertion on 11/20/[address] Flood. Patient overall doing well from a clinical standpoint. CXR from today is still pending; to my eye, shows stable right pleural effusion. Patient continues to drain large amounts from pleurx catheter every other day. PLAN: -Follow-up in 1 week with CXR and SET UP MECHANIC AUTOMATIC LINE visit; sooner if experiencing new/worsening clinical symptoms -Continue to drain pleurx every other day Part of this note was copied from my previous note, all content has been individually and thoroughly reviewed, updated as necessary, patient assessed with updated information, and changes appropriately documented/adjusted. Tita Landry APRN.SET UP MECHANIC AUTOMATIC LINE documented in this encounterSelect [facility]06-18-2024 Telephone encounter Note * Telephone Encounter - Lilia Ornelas - 12/03/2023 4:42 PM EDT Confirmed date and time of apts w/ patient and his via phone. Both have access to MyChart. PF 12/13/2023 at [facility] at 1:30pm Est 1 week follow up w/ Tita Landry at 2pm Per staff message from Tita Landry: please schedule patient for follow-up with me with CXR in 1 week [facility]06-18-2024 Miscellaneous Notes* Telephone Encounter - Lilia Ornelas - 12/03/2023 4:42 PM EDT Confirmed date and time of apts w/ patient and his via phone. Both have access to MyChart. PF 12/13/2023 at [facility] at 1:30pm Est 1 week follow up w/ Tita Landry at 2pm Per staff message from Tita Landry: please schedule patient for follow-up with me with CXR in 1 week documented in this encounterSelect Medical Specialty [facility]06-18-2024 Nurse Note* Jessica Enriquez RN - 12/03/2023 1:47 PM EDT Patient stated he was having SOB. Pleur x drained yesterday for 1075ml. Attempted to drain pleur x today no drainage present. Applied dressing. Jessica Enriquez RN [facility]06-18-2024 Nurse Note* Jessica Enriquez RN - 12/03/2023 1:47 PM EDT Patient stated he was having SOB. Pleur x drained yesterday for 1075ml. Attempted to drain pleur x today no drainage present. Applied dressing. Jessica Enriquez RN documented in this encounterSelect Medical [facility]06-18-2024 NoteHNO ID: [id number] Author: TITA LANDRY APRN.SET UP MECHANIC AUTOMATIC LINE Service: ? Author Type: Nurse Practitioner Type: Progress Notes Filed: 12/30/2023 22:10 Note Text: Heart, Vascular and [facility] DEPARTMENT OF THORACIC SURGERY OUTPATIENT VISIT DATE December 03, 2023 OUTPATIENT VISIT TYPE ESTABLISHED PT NAME: [facility] NO: [id number] THORACIC SURGEON: Ronaldo Flood M.D. 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, right Pleurx catheter insertion, right 20Fr chest tube insertion Surgical Pathology 11/20/2023: Component FINAL DIAGNOSIS A. Right pleura, biopsy: - Chronic pleuritis with mesothelial hyperplasia (see comment). B. Right pleura, biopsy: - Acute organizing and chronic pleuritis (see comment). ND/ 11/22/2023 Diagnosis Comment A. The biopsy contains [...] patient underwent R VATS pleural biopsy, right motorcycle mechanic apprentice and doxycycline pleurodesis, right Pleurx catheter insertion, [...] States pleurx was last drained yesterday by [facility] with 1,025 cc out. Did not drain in clinic today. Reviewed final pathology results which showshronic pleuritis with mesothelial hyperplasia, with no definitive evidence of malignancy. Patient's voices frustration that the cause of the patient's recurrent effusion is still (more content not included)...[facility] History of Present illness Narrative* Tita Landry APRN.SET UP MECHANIC AUTOMATIC LINE - 12/03/2023 1:02 PM EDT Heart, Vascular and [facility]acic [facility] DEPARTMENT OF THORACIC SURGERY OUTPATIENT VISIT DATE December 03, 2023 OUTPATIENT VISIT TYPE ESTABLISHED PT NAME: Sav Raymundo CLINIC NO: [id number] THORACIC SURGEON: Ronaldo Flood M.D. 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, right Pleurx catheter insertion, right 20Fr chest tube insertion Surgical Pathology 11/20/2023: Component FINAL DIAGNOSIS A. Right pleura, biopsy: - Chronic pleuritis with mesothelial hyperplasia (see comment). B. Right pleura, biopsy: - Acute organizing and chronic pleuritis (see comment). ND/ 11/22/2023 Diagnosis Comment A. The biopsy contains [...] reactive proliferation. Drs. Della Subramanian and Zeus [facility] have also reviewed this case and [...] 11/20/2023, patient underwent R VATS pleuralbiopsy, right motorcycle mechanic apprentice and doxycycline pleurodesis, right Pleurx catheter insertion, [...] States pleurx was last drained yesterday by [facility] with 1,025 cc out. Did not [...] effusion s/p R VATS pleural biopsy, right motorcycle mechanic apprentice and doxycycline pleurodesis, right Pleurx catheter insertion, right 20Fr chest tube insertion on 11/20/[address] Flood. Patient overall doing well from a clinical standpoint. CXR from today is still pending; to my eye, shows stable right pleural effusion. Patient continues to drain large amounts from pleurx catheter every other day. PLAN: -Follow-up in 1 week with CXR and SET UP MECHANIC AUTOMATIC LINE visit; sooner if experiencing new/worsening clinical symptoms -Continue to drain pleurx every other day Part of this note was copied from my previous note, all content has been individually and thoroughly reviewed, updated as necessary, patient assessed with updated information, and changes appropriately documented/adjusted. Tita Landry APRN.SET UP MECHANIC AUTOMATIC LINE documented in this encounterSelect [facility]06-18-2024 History of Present illness Narrative* Isamar Guevara [...] PATIENT PRESENTS WITH AN IMPLANTABLE OR ATTACHED BRAND SPECIALIST: No RADIOLOGY DEPARTMENT: General X-ray: Exam(s) Completed: Chest X-Ray PERIPHERAL IV DATA: Not applicable SIGNED BY: IMAN Hernández) December 03, 2023 12:26 PM documented in this encounterSelect Medical [facility]06-18-2024 NoteHNO ID: [id number] Author: ISAMAR GUEVARA RT(R) Service: Radiology Author [...] PATIENT PRESENTS WITH AN IMPLANTABLE OR ATTACHED BRAND SPECIALIST: No RADIOLOGY DEPARTMENT: General X-ray: Exam(s) Completed: Chest X-Ray PERIPHERAL IV DATA: Not applicable SIGNED BY: RT Betty(R) December 03, 2023 12:26 [facility]MP[facility]06-[facility]-2024 History of Present illness Narrative* Tita Landry APRN.SET UP MECHANIC AUTOMATIC LINE - 11/29/2023 3:00 PM EDT Heart, Vascular and [facility]acic [facility] DEPARTMENT OF THORACIC SURGERY OUTPATIENT VISIT DATE November 29, 2023 OUTPATIENT VISIT TYPE ESTABLISHED PT NAME: Sav Raymundo CLINIC NO: [id number] THORACIC SURGEON: Ronaldo Flood M.D. DATE OF SERVICE: 11/29/2023 PRINCIPAL DX: Pleural Effusion SURGICAL HX 11/20/2023: R VATS pleural biopsy, right motorcycle mechanic apprentice and doxycycline pleurodesis, right Pleurx catheter insertion, [...] 11/20/2023, patient underwent R VATS pleuralbiopsy, right motorcycle mechanic apprentice and doxycycline pleurodesis, right Pleurx catheter insertion, [...] (dark awilda with foam) 11/26: 450 cc (fender repairer than last time with foam) I drained [...] effusion s/p R VATS pleural biopsy, right motorcycle mechanic apprentice and doxycycline pleurodesis, right Pleurx catheter insertion, [...] with KDUR supplementation for edema Tita Landry APRN.SET UP MECHANIC AUTOMATIC LINE documented in this encounterSelect Medical [facility]06-14-2024 NoteHNO ID: [id number] Author: TITA LANDRY APRN.SET UP MECHANIC AUTOMATIC LINE Service: ? Author Type: Nurse Practitioner Type: Progress Notes Filed: 12/30/2023 21:20 Note Text: Heart, Vascular and Thoracic [facility] DEPARTMENT OF THORACIC SURGERY OUTPATIENT VISIT DATE November 29, 2023 OUTPATIENT VISIT TYPE ESTABLISHED PT NAME: Sav Cantu Kimberly [facility] NO: [id number] THORACIC SURGEON: Ronaldo Flood M.D. DATE OF SERVICE: 11/29/2023 PRINCIPAL DX: Pleural Effusion SURGICAL HX 11/20/2023: R VATS pleural biopsy, right motorcycle mechanic apprentice and doxycycline pleurodesis, right Pleurx catheter insertion, [...] patient underwent R VATS pleural biopsy, right motorcycle mechanic apprentice and doxycycline pleurodesis, right Pleurx catheter insertion, [...] (dark awilda with foam) 11/26: 450 cc (fender repairer than last time with foam) I drained [...] effusion s/p R VATS pleural biopsy, right motorcycle mechanic apprentice and doxycycline pleurodesis, right Pleurx catheter insertion, [...] with KDUR supplementation for edema Tita Landry APRN.[facility]05-28-2024 History of Present illness Narrative* Ronaldo Flood [...] . Huy Robles RN documented in this encounterSelect Medical Specialty [facility]05-28-2024 Nurse Note* Huy Robles RN - 11/12/2023 2:27 PM EDT PATIENT EDUCATION The following was evaluated: Motivation To Learn: Interested Family/Significant Other Support: High - Very involved in pt care Cognitive Ability: Alert and oriented Patient Learns Best By: Multiple Methods The Following Influencing Factors Were Barriers To This Education Session: No barriers Manager Of Allied Health Services Present: Not Applicable The Following Physical Limitations [...] Robles RN. In Department of THORACIC CLINIC. [place] [address]-28-2024 Nurse Note* Huy Robles RN - 11/12/2023 2:27 PM EDT PATIENT EDUCATION The following was evaluated: Motivation To Learn: Interested Family/Significant Other Support: High - Very involved in pt care Cognitive Ability: Alert and oriented Patient Learns Best By: Multiple Methods The Following Influencing Factors Were Barriers To This Education Session: No barriers Manager Of Allied Health Services Present: Not Applicable The Following Physical Limitations [...] Department of THORACIC CLINIC. documented in this encounterSelect Medical [facility]05-28-2024 History of Present illness Narrative* Mariam Sy, [employer] - 11/12/2023 10:00 AM EDT RADIOLOGY SERVICE [...] PATIENT PRESENTS WITH AN IMPLANTABLE OR ATTACHED BRAND SPECIALIST: No CREATININE: Creatinine Date Value Ref Range [...] Discontinued PROCEDURE TYPE: NM Stress: 11.8 mCi [id number] was administered IV for Rest Imaging at 10:18AM by GRECIA [facility]. 41.8 mCi [id number] was administered IV for Stress Imaging at [...] ALLERGIES: Reviewed and unchanged MEDICATIONS REVIEWED BY: Threshing Operator PROCEDURE TYPE: NM STRESS: 0.4 mg of Lexiscan was administered IV at 1018 by Vibha Dempsey RN . Reversal agent used: None. Expiration date: 06/2025 Lot#: [id number] IV SITE: Ambulatory: A Saline lock was inserted per protocol POST EXAM PIV STATUS: Discontinued PATIENT DISCHARGED TO: Ambulatory patient, left [place] department area. A Diagnostic radioactive procedure has taken place, with no further precautions necessary other than routine body substance precautions. More information regarding radiation safety can be found usingthis link: [email or web address] 20Diagnostic%20Nuclear%20Medicine%[email or web address] SIGNATURE: Vibha Dempsey RN PATIENT NAME: Sav Raymundo DATE: November 12, 2023 TIME: 11:14 AM PAGER/CONTACT #: documented in this encounterSelect Medical Specialty [facility]05-28-2024 History of Present illness Narrative* Lacey Bermeo [...] PATIENT PRESENTS WITH AN IMPLANTABLE OR ATTACHED BRAND SPECIALIST: No RADIOLOGY DEPARTMENT: General X-ray: Exam(s) Completed: Chest X-Ray PERIPHERAL IV DATA: Not applicable SIGNED BY: RT Hudson(R) November 12, 2023 8:12 AM documented in this encounterSelect Medical Special[facility]05-23-2024 Telephone encounter Note * Telephone Encounter - [...] 6/5 pt voiced understanding Patricia Bermudez RN [facility] [place] Miscellaneous Notes* Telephone Encounter - Patricia Bermudez [...] understanding Patricia Bermudez RN documented [facility] [place] History of Present illness Narrative* Patricia Bermudez [...] this time. Patricia Bermudez MSN, RN Nurse Wholesale Buyer Thoracic Surgery [facility] [place] * Patricia Bermudez RN - 10/25/2023 11:43 AM EDT October 25, 2023 11:43 AM left message on patient mobile phone to discuss surgical planning, await call back. Tentative plans for: OR 11/20/2023 pending patient acceptance Patricia Bermudez RN documented in this encounter[facility] [place] History of Present illness Narrative* Ronaldo Flood MD, PhD - 10/25/2023 10:26 AM EDT [facility] [place] BY [facility] ST[facility]FF PHYSIC[facility] NOTE OF PERSONAL INVOLVEMENT IN [...] THORACIC SURGERY OUTPATIENT CONSULT NOTE Sav Raymundo [id number] Requesting Provider: Dr. Sintia Clemente Thoracic Physician: [...] by: Mark Malone MD documented in this encounterSelect [facility] [place]24 Telephone encounter Note * Telephone Encounter - Jahaira Wood - 10/21/2023 11:41 AM EDT Received ED visit notes 10/18/23 from [facility] Records scanned in [facility] CTA Chest [facility], red hat linux administrator [facility] [place]05-06-2024 Miscellaneous Notes* Telephone Encounter - Jahaira Wood - 10/21/2023 11:41 AM EDT Received ED visit notes 10/18/23 from [facility] Records scanned in [facility] CTA Chest and Chest X[facility], red hat linux administrator * Telephone Encounter - Patricia Bermudez RN - 10/21/2023 10:08 AM EDT Images from the original note were not included. Thoracic Surgery Consultation - review of records for appointment scheduling Received medical records from the office of Sintia Clemente [address] [place] [address] Patient is being referred to Ronaldo Flood MD, PhD by Sintia Clemente for Pleural Effusion Outside hospital records scanned Pathology: Procedures: right thoracentesis 10/01/23 520ml thoracentesis 09/04/[address] chest done at [facility] for Shortness of breath - pt [...] Ph. D. by Sintia Clemente [address] [facility] [address] Patient diagnosis/Reason for consult: Pleural Effusion Recurrent Referral triage process explained: Yes Patient will receive a call from Thoracic NPM after triage review with surgeon to discuss any additional testing and/or consults that will be scheduled. Pt will then receive a call from our scheduling office for scheduling. Please call pt at [phone]. Patient was informed consultation could be at [facility] or [facility]: No Patient Registration: Registration complete/updated: yes Insurance card(s) scanned in [facility] with in the past year: Yes: Date: 10/16/23 Pt's [employer] is inactive. Ok to communicate to pt via [employer] not asked Medical Records: Records in [facility] (internal CC records): No Imaging in [facility] (internal [facility] records): No Care Everywhere - queried yes, downloaded Yes Linked Outside Organizations (list): [facility] Records Requested: no Date: N/A Outside Hospital(s) requested records from: Dr. Clemente Received: yes Uploaded: Yes. Waiting on additional records: No. Missing (list): N/A OS Pathology Slides Requested: no Date: N/A Outside Hospital(s) slides requested from: n/a OS Radiology Imaging Requested: yes Date: October 16, 2023 Outside Hospital(s) requested imaging from: [facility]. Imaging will be received via Electronic Transfer Received: Yes Imaging uploaded: Yes Waiting on additional: No Missing (list): n/a Additional providers added to Care Teams: Yes Additional Notes/Comments: Pt's spouse states pt is waiting to be scheduled for another CT Chest locally. Enct routed to: Margaret Vasquez NPM for Triage Jahaira Wood, red hat linux administrator documented in this encounter[facility] [place] Telephone encounter Note * Telephone Encounter - Patricia Bermudez RN - 10/21/2023 10:08 AM EDT Images from the original note were not included. Thoracic Surgery Consultation - review of records for appointment scheduling Received medical records from the office of Sintia Clemente [address] [place] [address] Patient is being referred to Ronaldo Flood MD, PhD by Sintia Clemente for Pleural Effusion Outside hospital records scanned Pathology: Procedures: right thoracentesis 10/01/23 520ml thoracentesis 09/04/[address] right [address] chest done at [facility] for Shortness of breath - [...] pt aware and agreeable Patricia Bermudez RN [facility] [place]05-01-2024 Telephone encounter Note* Telephone Encounter - Jahaira Wood - 10/16/2023 9:16 AM EDT LOCAL PATIENT Received Fax from Dr. Sintia Clemente Adams Pepe Raymundo is being referred to Ronaldo Flood M.D., Ph. D. by Sintia Clemente [address] [place] [id number] Patient diagnosis/Reason for consult: Pleural Effusion Recurrent Referral triage process explained: Yes Patient will receive a call from Thoracic NPM after triage review with surgeon to discuss any additional testing and/or consults that will be scheduled. Pt will then receive a call from our scheduling office for scheduling. Please call pt at [phone]. Patient was informed consultation could be at [facility] or [facility]: No Patient Registration: Registration complete/updated: yes Insurance card(s) scanned in [facility] with in the past year: Yes: Date: 10/16/23 Pt's [employer] is inactive. Ok to communicate to pt via [employer] not asked Medical Records: Records in [facility] (internal CC records): No Imaging in [facility] (internal CC records): No Care Everywhere - queried yes, downloaded Yes Linked Outside Organizations (list): [facility] Records Requested: no Date: N/A Outside Hospital(s) requested records from: Dr. Clemente Received: yes Uploaded: Yes. Waiting on additional records: No. Missing (list): N/A OS Pathology Slides Requested: no Date: N/A Outside Hospital(s) slides requested from: n/a [facility] Radiology Imaging Requested: yes Date: October 16, 2023 Outside Hospital(s) requested imaging from: [facility]. Imaging will be received via Electronic Transfer Received: Yes Imaging uploaded: Yes Waiting on additional: No Missing (list): n/a Additional providers added to Care Teams: Yes Additional Notes/Comments: Pt's spouse states pt is waiting to be scheduled for another CT Chest locally. Enct routed to: YesMargaret NPM for Triage Jahaira Wood red hat linux administrator [facility] [place]04-30-2024 Telephone encounter Note* Telephone Encounter - Sol Desouza - 10/15/2023 4:06 PM EDTSummary: CARDIO THORACIC SURG Patient: Sav Raymundo Date of : 1950 Patient phone number: [phone] Referring Provider for the encounter: Sintia Clemente Requesting Provider: Dr Ronaldo Flood Reason for requesting visit (RFV/signs and symptoms/diagnosis): pleural effusion recurment . Person calling: Via RP FAX Return call to: self Medical Records/Insurance Card scanned into [facility]: Comments: [facility] [place]04-30-[facility]24 Miscellaneous Notes* Telephone Encounter - Sol Desouza - 10/15/2023 4:06 PM EDTSummary: CARDIO THORACIC SURG Patient: Sav Raymundo Date of : 1950 Patient phone number: [phone] Referring Provider for the encounter: Sintia Clemente Requesting Provider: Dr Ronaldo Flood Reason for requesting visit (RFV/signs and symptoms/diagnosis): pleural effusion recurment . Person calling: Via RP FAX Return call to: self Medical Records/Insurance Card scanned into [facility]: Comments: documented in this encounterSelect [facility] [place]24 Evaluation note* Encounter Date Diagnosis Assessment Notes Treatment Notes Treatment Clinical Notes Jul, Subacute cough (ICD-10 - R05.2) Continue treatment of any PND and GERD. Continue Mucinex DM. Trial of Prednisone and Albuterol. Jul,rimary hypertension (ICD-10 - I10)This patient is instructed to consume a healthy, low-fat, low-salt diet. They are also encouraged to continue exercise to achieve/maintain a normal BMI. [employer] Other 01-24-2024 Evaluation note* Encounter Date Diagnosis Assessment Notes Treatment Notes Treatment Clinical Notes Jun, Subacute cough (ICD-10 - R05.2) [employer] Other 01-21-2024 Evaluation note* Encounter Date Diagnosis Assessment Notes Treatment Notes Treatment Clinical Notes Jun, Subacute cough (ICD-10 - R05.2) [employer] Other 01-09-2024 Evaluation note* Encounter Date Diagnosis Assessment Notes Treatment Notes Treatment Clinical Notes Jun, Primary hypertension (ICD-10 - I 10) [facility] Other 11-21-2023 Evaluation note* Encounter Date Diagnosis Assessment Notes Treatment Notes Treatment Clinical Notes Apr, Acute bronchitis due to other sp ecified organisms (ICD-10 - J20.8) [employer] Other 11-08-2023 Evaluation note* Encounter Date Diagnosis Assessment Notes Treatment Notes Treatment Clinical Notes Apr, Primary hypertension (ICD-10 - I 10) [employer] Other 11-06-2023 Evaluation note* Encounter Date Diagnosis [...] (prostate specific antigen) (ICD-10 - Z12.5)Yealry PSA [employer] Other 11-01-2023 Evaluation note* Encounter Date Diagnosis Assessment Notes Treatment Notes Treatment Clinical Notes Apr, Screening PSA (prostate specific antigen) (ICD-10 - Z12.5) Apr,Hyperlipidemia type II (ICD-10 - E78.01) Apr,astro-esophageal reflux disease with esophagitis, without bleeding (ICD-10 - K21.00) Apr,Fatigue, unspecified type (ICD-10 - R53.83) Apr,High risk medication use (ICD-10 - Z79.899) [employer] Other 08-28-2023 History of Present illness Narrative* Margie Edouard, DO - 02/11/2023 2:00 PM EDT Telehealth Visit Via Phone Call Patient: Sav Raymundo Date of : 1950 (72 y.o. male) Patient Patient Location: [address] [place] [address] [place] [address] Provider Location: [facility] I discussed risks, benefits and alternatives [...] there are inherent diagnostic limitations compared to ozvi-mc-kike evaluations. We elected toproceed with the telephone [...] expedite correspondence this note was generated by Vi[employer] voice recognition software. Somegrammatical or spelling errors may occur using the system. documented in this [id number] History of Present illness Narrative* Nena Huff DO - 01/16/2023 10:35 AM EDT [facility] [address] [place] [address] Patient Name: Sav Raymundo Patient Age: 72 [...] KNEE ARTHROPLASTY; Surgeon: Karthik Calloway MD; Location: [facility] OR; Service: ARTHROPLASTY KNEE TOTAL Right 06/25/2016 Procedure: RIGHT TOTAL KNEE ARTHROPLASTY ; Surgeon: Karthik Calloway MD; Location: [facility] OR; Service: BASAL CELL CARCINOMA [...] mouth every morning . vit A-vit C-vit Y-eakf-bvwuao [id number] dqyb-gz-ylel Tab Take 1 tablet by mouth every [...] Imaging: X-rays of the left knee from [facility] taken today are reviewed. My personal [...] expedite correspondence this note was generated by [employer] voice recognition software. Somegrammatical or spelling errors may occur using the system. documented in this [id number] Evaluation note* Encounter Date Diagnosis Assessment Notes Treatment Notes Treatment Clinical Notes Dec, Laceration of scalp, initial enc ounter (ICD-10 - S01.01XA) Cleanse scalp w/ soap and water [employer] Other 06-05-2023 History of Present illness Narrative* [...] the left great toe does not apparently chainstitch elastic attacher the ground. IMAGING: Please see dictated report. ASSESSMENT: Left hallux rigidus Left metatarsalgia PLAN: I performed a left first MTP joint injection at today's visit. Please see separate procedure note. I recommended that we proceed with custom orthotics with a Eaton's extension, built-in metatarsal pad. Order was [facility] to [facility] orthopedics. We discussed left first MTP joint arthrodesis at today'is. We discussed the fact that he would have to be nonweightbearing following the procedure. Thepatient would like to hold off on any surgery at today's visit. We will see him back in 6 weeks. Radiographs next visit: None Margie Edouard DO Orthopedic Foot and Ankle Surgeon To expedite correspondence, this note was generated by [employer] voice recognition software. Some grammatical or spelling errors may occur using this system. documented in this [id number] History of Present illness Narrative* Grecia Faith PA-C - 10/08/2022 2:36 PM EDT 10/08/22 Sav Cantu Kimberly 1950 HISTORY: Sav returns today for re-evaluation [...] expedite correspondence, this note was generated by [employer] voice recognition software. Some grammatical or spelling errors may occur using this system. documented in this [id number] History of Present illness Narrative* Margie Edouard, - 08/28/2022 1:46 PM EDT 08/28/22 Sav Cantu Kimberly 1950 HISTORY: Sav is a 72 y.o. [...] the left great toe does not apparently chainstitch elastic attacher the ground. IMAGING: Please see dictated report. [...] expedite correspondence, this note was generated by Vi[employer] voice recognition software. Some grammatical or spelling errors may occur using this system. documented in this encounterWyioHealthEvaluation note* Diagnosis Status post total knee replacement, bilateral- Primary [facility] Diagnosis Hallux rigidus of left foot- Primary Eaton's metatarsalgia, left [facility] Diagnosis Hallux rigidus of left foot- Primary Metatarsalgia, left foot [facility] Diagnosis Hallux rigidus of left foot- Primary documented in this encounter [facility] note* Diagnosis Status post total knee replacement, bilateral- Primary documented in this encounter [facility] note* Diagnosis Hallux rigidus of left foot- Primary documented in this encounter [facility] noteNo [facility] [employer] Other evaluation note* Diagnosis Status post total knee replacement, bilateral- Primary documented in this encounter [facility] note* Diagnosis Onset Date Resolution Status Nausea & vomiting acutePrimary hypertensionacuteSubacute coughacuteDyspnea on effortnoneactive [place] [facility] Work Phone: Evaluation note* Diagnosis Pleural effusion- Primary Unspecified pleural effusion documented in this encounter [facility] note* Diagnosis Obesity, Class I, BMI 30-34.9- Primary Obesity, unspecified Pleural effusion Unspecified pleural effusion documented in this encounter [facility] note* Diagnosis Pleural effusion- Primary Unspecified pleural effusion Encounter for other preprocedural examination Pleural effusion Unspecified pleural effusion Encounter for other preprocedural examination documented in this encounter [facility] note* Diagnosis Pleural effusion- Primary Unspecified pleural effusion Pleural effusion Unspecified pleural effusion Encounter for other preprocedural examination documented in this encounter [facility] note* Diagnosis Pleural effusion Unspecified pleural effusion Encounter for other preprocedural examination Pleural effusion Unspecified pleural effusion Encounter for other preprocedural examination documented in this encounter [facility] note* Diagnosis Surgery follow-up- Primary Follow-up examination, following unspecified surgery documented in this encounter [facility] note* Diagnosis Follow-up exam- Primary Unspecified follow-up examination documented in this encounter [facility] note* Diagnosis Surgery follow-up Follow-up examination, following unspecified surgery documented in this encounter [facility] note* Diagnosis Follow-up exam Unspecified follow-up examination documented in this encounter [facility] note* Diagnosis Pleural effusion Unspecified pleural effusion documented in this encounter [facility] note* Diagnosis Pleural effusion Unspecified pleural effusion documented in this encounter [facility] note* Diagnosis Follow-up examination after lung surgery- Primary Follow-up examination, following other surgery Pleural effusion Unspecified pleural effusion documented in this encounter [facility] note* Diagnosis Follow-up examination after lung surgery- Primary Follow-up examination, following other surgery Pleural effusion Unspecified pleural effusion Pleural effusion Unspecified pleural effusion documented [facility] this [facility] Diagnosis Pleural effusion- Primary Unspecified pleural effusion documented in this encounter [facility] note* Diagnosis Chronic cough- Primary Cough Pleural effusion Unspecified pleural effusion documented in this encounter [facility] note* Diagnosis Recurrent pleural effusion- Primary History of pericarditis Personal history of other diseases of circulatory system Chronic cough Cough [facility]* Diagnosis Recurrent pleural effusion on right Unspecified pleural effusion documented in this encounter [facility] note* Diagnosis Recurrent pleural effusion on right- Primary Unspecified pleural effusion Chronic cough Cough Elevated C-reactive protein (CRP) Elevated sedimentation rate documented in this [facility]* Diagnosis Pleural effusion- Primary Unspecified pleural effusion Pleural effusion Unspecified pleural effusion documented in this [facility]* Diagnosis Follow-up examination after lung surgery- Primary Follow-up examination, following other surgery Pleural effusion Unspecified pleural effusion Bilateral lower extremity edema Edema Anasarca Edema Nausea vomiting and diarrhea Diarrhea documented in this encounter [facility]* Diagnosis Pleural effusion- Primary Unspecified pleural effusion Elevated sed rate Elevated sedimentation rate Elevated C-reactive protein (CRP) documented in this encounter [facility]* Diagnosis Recurrent pleural effusion on right- Primary Unspecified pleural effusion Primary hypertension Unspecified essential hypertension Pleural effusion Unspecified pleural effusion Chronic cough Cough Anemia, unspecified type Hypomagnesemia Disorders of magnesium metabolism documented in this encounter [facility] note* Diagnosis Recurrent pleural effusion on right- Primary Unspecified pleural effusion History of pericarditis Personal history of other diseases of circulatory system documented in this encounter [facility]* Diagnosis Pleural effusion Unspecified pleural effusion documented in this encounter [facility]* Diagnosis Chronic cough Cough Pleural effusion Unspecified pleural effusion documented in this [facility]* Diagnosis Pleural effusion- Primary Unspecified pleural effusion documented in this encounter [facility]* Diagnosis Chronic cough- Primary Cough Pleural effusion Unspecified pleural effusion Interstitial pulmonary disease (HCC) Postinflammatory pulmonary fibrosis documented in this [facility]* Diagnosis Pleural effusion- Primary Unspecified pleural effusion Interstitial pulmonary disease (HCC) Postinflammatory pulmonary fibrosis documented in this [facility]* Diagnosis Chronic cough- Primary Cough Pleural [...] Postinflammatory pulmonary fibrosis documented in this encounter [facility] note* Diagnosis Chronic bronchitis, unspecified chronic bronchitis type (HCC) documented in this encounter [facility]* Diagnosis Interstitial pulmonary disease (HCC) Postinflammatory pulmonary fibrosis documented in this encounter [facility] note* Diagnosis Pericarditis, unspecified chronicity, unspecified type documented in this encounter [facility] note* Diagnosis Pleural effusion- Primary Unspecified pleural effusion Elevated sed rate Elevated sedimentation rate Elevated C-reactive protein (CRP) Diarrhea, unspecified type documented [facility] this [facility]* Diagnosis Diarrhea, unspecified type Abdominal pain, unspecified abdominal location documented in this encounter [facility]* Diagnosis Abdominal pain, unspecified abdominal location- Primary Diarrhea, unspecified type Diarrhea, unspecified type Abdominal pain, unspecified abdominal location documented in this encounter [facility] note* Diagnosis Nausea and vomiting, unspecified vomiting type documented in this encounter [facility]* Diagnosis Recurrent pleural effusion on right- Primary Unspecified pleural effusion Anasarca Edema Chronic cough Cough Primary hypertension Unspecified essential hypertension documented in this encounter [facility] note* Diagnosis Pleural effusion Unspecified pleural effusion documented in this [facility]* Diagnosis Pleural effusion- Primary Unspecified pleural effusion Chronic cough Cough Lung nodule Solitary pulmonary nodule Lymphocytic colitis Other and unspecified noninfectious gastroenteritis and colitis Pleural effusion Unspecified pleural effusion documented [facility] this [facility]* Diagnosis Pleural effusion- Primary Unspecified pleural effusion Elevated sed rate Elevated sedimentation rate Elevated C-reactive protein (CRP) documented in this [facility]* Diagnosis Lymphocytic colitis- Primary Other and unspecified noninfectious gastroenteritis and colitis documented in this encounter [facility]* Diagnosis Recurrent pleural effusion on right- Primary Unspecified pleural effusion Primary hypertension Unspecified essential hypertension Lymphocytic colitis Other and unspecified noninfectious gastroenteritis and colitis Elevated C-reactive protein (CRP) Exocrine pancreatic insufficiency Other specified disease of pancreas Hypokalemia Hypopotassemia Anasarca Edema documented in this encounter [facility] note* Diagnosis Pleural effusion- Primary Unspecified pleural effusion documented in this encounter [facility] note* Diagnosis Pleural effusion- Primary Unspecified pleural effusion Pleuritis Pleurisy without mention of effusion or current tuberculosis Lymphocytic colitis Other and unspecified noninfectious gastroenteritis and colitis Pericardial effusion (noninflammatory) Interstitial pulmonary disease (HCC) Postinflammatory pulmonary fibrosis documented in this encounter [facility] note* Diagnosis Pleural effusion [J90]- Primary Unspecified pleural effusion documented in this encounter [facility] note* Diagnosis Pleural effusion Unspecified pleural effusion documented in this encounter [facility] note* Diagnosis Pleural effusion- Primary Unspecified pleural effusion Muscle cramps Cramp of limb Anasarca Edema Hypomagnesemia Disorders of magnesium metabolism Lymphocytic colitis Other and unspecified noninfectious gastroenteritis and colitis documented in this encounter [facility] note* Diagnosis Fatigue, unspecified type- Primary documented in this encounter [facility] note* Diagnosis Pleural effusion- Primary Unspecified pleural effusion documented in this encounter [facility] note* Diagnosis Pleural effusion- Primary Unspecified pleural effusion Pleuritis Pleurisy without mention of effusion or current tuberculosis Pericardial effusion (noninflammatory) Chronic cough Cough documented in this encounter [facility] note* Diagnosis Pleural effusion- Primary Unspecified pleural effusion documented in this encounter [facility] note* Diagnosis Pleural effusion Unspecified pleural effusion documented in this encounter [facility] note* Diagnosis Early dry stage nonexudative age-related macular degeneration of both eyes- Primary Dry eyes Unspecified tear film insufficiency Blepharitis of upper and lower eyelids of both eyes, unspecified type Bilateral posterior capsular opacification Unspecified after-cataract Chalazion of left upper eyelid documented in this encounter [facility] note* Diagnosis Pleural effusion- Primary Unspecified pleural effusion documented in this encounter [facility] note* Diagnosis Recurrent pleural effusion on right- Primary Unspecified pleural effusion documented in this encounter [facility] note* Diagnosis Lymphocytic colitis- Primary Other and unspecified noninfectious gastroenteritis and colitis Esophageal dysphagia Dysphagia, pharyngoesophageal phase documented in this encounter [facility] note* Diagnosis Seborrheic keratosis- Primary Actinic keratosis Stasis dermatitis of both legs Lentigines documented in this encounter [facility] note* Diagnosis Recurrent pleural effusion on right- Primary Unspecified pleural effusion documented in this encounter [facility] note* Diagnosis Recurrent pleural effusion on right- Primary Unspecified pleural effusion documented in this encounter [facility] note* Diagnosis Recurrent pleural effusion on right- Primary Unspecified pleural effusion Hypokalemia Hypopotassemia Lymphocytic colitis Other and unspecified noninfectious gastroenteritis and colitis Anemia, unspecified type Chronic insomnia Insomnia, unspecified Bronchiolar disease Other diseases of trachea and bronchus documented in this encounter [facility] note* Diagnosis Esophageal dysphagia- Primary Dysphagia, pharyngoesophageal phase Bronchiolar disease Other diseases of trachea and bronchus documented in this encounter [facility] note* Diagnosis Cough, unspecified type documented in this encounter [facility] note* Diagnosis Elevated BUN- Primary Other abnormal blood chemistry Elevated serum creatinine Other nonspecific findings on examination of blood Decreased GFR Nonspecific abnormal results of kidney function study Elevated alkaline phosphatase level Other nonspecific abnormal serum enzyme levels documented in this encounter [facility] note* Diagnosis FLOYD (acute kidney injury)- Primary Acute kidney failure, unspecified Elevated BUN Other abnormal blood chemistry Elevated serum creatinine Other nonspecific findings on examination of blood Decreased GFR Nonspecific abnormal results of kidney function study Lymphocytic colitis Other and unspecified noninfectious gastroenteritis and colitis Pleural effusion, not elsewhere classified Generalized edema Edema documented in this encounter [facility] note* Diagnosis Screening for genitourinary condition Screening for other and unspecified genitourinary condition documented in this encounter [facility] note* Diagnosis Cramp and spasm documented in this encounter [facility] note* Diagnosis Serositis (HCC)- Primary Other specified disorder of intestines documented in this encounter [facility] note* Diagnosis Generalized abdominal pain- Primary Abdominal pain, generalized Other ascites documented in this encounter [facility] note* Diagnosis Elevated alkaline phosphatase level Other nonspecific abnormal serum enzyme levels documented in this encounter [facility] note* Diagnosis Pleural effusion- Primary Unspecified pleural effusion documented in this encounter [facility] note* Diagnosis Pleural effusion Unspecified pleural effusion Encounter for other preprocedural examination documented in this encounter [facility]* Diagnosis Anasarca- Primary Edema Recurrent pleural effusion on right Unspecified pleural effusion Hepatomegaly Hiatal hernia Diaphragmatic hernia without mention of obstruction or gangrene Chronic gastritis without bleeding, unspecified gastritis type Hypomagnesemia Disorders of magnesium metabolism documented in this encounter [facility]* Diagnosis Pleural effusion Unspecified pleural effusion documented in this encounter [facility]* Diagnosis Extremity cyanosis- Primary Other peripheral vascular disease documented in this encounter [facility]* Diagnosis Pleural effusion- Primary Unspecified pleural effusion documented in this encounter [facility]* Diagnosis Pleural effusion- Primary Unspecified pleural effusion Pleuritis Pleurisy without mention of effusion or current tuberculosis Pericardial effusion (noninflammatory) (HCC) Lymphocytic colitis Other and unspecified noninfectious gastroenteritis and colitis Other ascites documented in this encounter [facility]* Diagnosis Pleural effusion, not elsewhere classified documented in this encounter [facility]* Diagnosis Hepatomegaly documented in this encounter [facility]* Diagnosis Cramp and spasm documented in this encounter [facility]* Diagnosis Mixed connective tissue disease (HCC)- Primary Other specified diffuse disease of connective tissue Urge incontinence Hypokalemia Hypopotassemia Recurrent pleural effusion on right Unspecified pleural effusion Muscle cramps Cramp of limb Hiatal hernia Diaphragmatic hernia without mention of obstruction or gangrene documented in this encounter [facility]* Diagnosis Elevated serum creatinine- Primary Other nonspecific findings on examination of blood Elevated alkaline phosphatase level Other nonspecific abnormal serum enzyme levels documented in this encounter [facility]* Diagnosis Pleural effusion, not elsewhere classified Elevated alkaline phosphatase level Other nonspecific abnormal serum enzyme levels documented in this encounter [facility]* Diagnosis Cramp and spasm Elevated alkaline phosphatase level Other nonspecific abnormal serum enzyme levels documented in this encounter [facility]* Diagnosis Pleural effusion- Primary Unspecified pleural effusion Pleuritis Pleurisy without mention of effusion or current tuberculosis Pericardial effusion (noninflammatory) (HCC) History of pericarditis Personal history of other diseases of circulatory system Lymphocytic colitis Other and unspecified noninfectious gastroenteritis and colitis Elevated alkaline phosphatase level Other nonspecific abnormal serum enzyme levels documented in this encounter [facility]* Diagnosis Hypomagnesemia- Primary Disorders of magnesium metabolism Dyslipidemia Other and unspecified hyperlipidemia Anemia, unspecified type documented in this encounter [facility]* Diagnosis Other ascites- Primary documented in this encounter [facility]* Diagnosis Other ascites documented in this encounter [facility]* Diagnosis FLOYD (acute kidney injury)- Primary Acute kidney failure, unspecified Screening for genitourinary condition Screening for other and unspecified genitourinary condition Elevated serum creatinine Other nonspecific findings on examination of blood Decreased GFR Nonspecific abnormal results of kidney function study Generalized edema Edema Pleural effusion, not elsewhere classified documented in this encounter [facility]* Diagnosis FLOYD (acute kidney injury)- Primary [...] unspecified genitourinary condition documented in this encounter [facility]* Diagnosis 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, stage 2 (CMS-HCC)- Primary Cellulitis of left foot Pain in toe of left foot Pain in soft tissues of limb Difficulty walking Difficulty in walking documented in this encounter [facility]* Diagnosis 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, stage 2 (CMS-HCC)- Primary Cellulitis of left foot Pain in toe of left foot Pain in soft tissues of limb Difficulty walking Difficulty in walking documented in this encounter [facility]* Diagnosis 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, stage 2 (CMS-HCC)- Primary Cellulitis of left foot Pain in toe of left foot Pain in soft tissues of limb Difficulty walking Difficulty in walking documented in this encounter [facility]* Diagnosis Dermatophytosis of nail- Primary Dystrophic nail Other specified disease of nail Pain around toenail, right foot Pain around toenail, left foot documented in this encounter [facility] HealthcareHistory general Narrative - Reported* Type Description Date Medical History 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 Medical HistoryBenign prostatic hyperplasia with lower urinary tract symptoms Medical HistoryHyperlipidemia type IIMedical HistoryGastro-esophageal reflux disease with esophagitis, without bleedingSurgical Historyboth knee replaced Surgical Historyhand surgeryHospitalization HistorySEE [facility] [employer] Other Reason for referral (narrative)* Outpatient Procedure (Routine) - AuthorizedSpecialtyDiagnoses / ProceduresReferred By Contact [facility]oses Pleural effusion Encounter for other preprocedural examination Procedures SIX MINUTE WALK CARDIOPULMONARY EXERCISE STRESS Ronaldo Flood MD, PhD [address] [address] [facility] [address] [place] [address] Referral IDStatusReasonStart DateExpiration DateVisits RequestedVisits [id number] Auto-Generated Referral / * Outpatient Procedure (Routine) - AuthorizedSpecialtyDiagnoses / Procedures Referred By ContactReferred To [facility] [place] Diagnoses Pleural effusion Encounter for other preprocedural examination Procedures ECG COMPLETE ECG ROUTINE ECG W/LEAST 12 LDS W/I&R Ronaldo Flood MD, PhD [address] [address] [facility] [address] [address] Referral IDStatusReasonStgrenora DateExpiration DateVisits RequestedVisits [id number] Auto-Generated Referral / * Diagnostic Procedure Only (Routine) - AuthorizedSpecialtyDiagnoses / ProceduresReferred By ContactReferred To ContactMOLECULAR & FUNCTIONAL IMAGING Diagnoses Pleural effusion Encounter for other preprocedural examination Procedures NM CARDIAC PERF STRESS/EXERCISE MYOCARDIAL SPECT MULTIPLE STUDIES Ronaldo Flood MD, PhD [address] [facility] [address] [address] Molecular & Functional Imaging [address] [place] [address] Referral IDStatusReasonStgrenora DateExpiration DateVisits RequestedVisits [id number] Auto-Generated Referral * Outpatient Procedure (Routine) - AuthorizedSpecialtyDiagnoses / Procedures Referred By ContactReferred To [facility] Diagnoses Pleural effusion Encounter for other preprocedural examination Procedures LUNG DIFFUSION CAPACITY (DLCO) DIFFUSING CAPACITY Ronaldo Flood MD, PhD [address] [employer] -[address] [place] [address] [place] [address] Referral IDStatusSairaasonMontgomery DateExpiration DateVisits RequestedVisits [id number] Auto-Generated Referral * Outpatient Procedure (Routine) - AuthorizedSpecialtyDiagnoses / Procedures Referred By ContactReferred To [facility] Diagnoses Pleural effusion Encounter for other preprocedural examination Procedures SPIROMETRY WITH DILATOR IF OBSTRUCTED BRNCDILAT RSPSE SPMTRY PRE&POST-BRNCDILAT ADMN Ronaldo Flood MD, PhD [address] [address] [place] [address] [address] Referral IDStatusReasonMontgomery DateExpiration DateVisits RequestedVisits [id number] Auto-Generated Referral [facility] for referral (narrative)* Outpatient Procedure (Routine) - New RequestSpecialtyDiagnoses / ProceduresReferred By ContactRefhi-[facility] To [facility] Diagnoses Chronic cough Pleural effusion Procedures SPIROMETRY WITH DILATOR IF OBSTRUCTED BRNCDILAT RSPSE SPMTRY PRE&POST-BRNCDILAT ADMN Katerina Bravo 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.[employer] [address] [place] [id number] [place] [address] Referral IDStatusReasonStart DateExpiration DateVisits RequestedVisits [id number] Request Auto-Generated Referral / * Outpatient Procedure (Routine) - New RequestSpecialtyDiagnoses / Procedures Referred By ContactReferred To [facility] Diagnoses Chronic cough Pleural effusion Procedures NITRIC OXIDE, EXHALED NITRIC OXIDE GAS DETERMINATION Katerina Bravo APRN.[employer] [address] [place] [id number] [place] [address] Referral IDStatusReasonStart DateExpiration DateVisits RequestedVisits [id number] Request Auto-Generated Referral / [facility] for referral (narrative)* Outpatient Procedure (Routine) - ClosedSpecialtyDiagnoses / ProceduresReferred By ContactReferred To [facility] Diagnoses Pleural effusion Interstitial pulmonary disease (HCC) Procedures LUNG VOLUMES Louise Cesar MD [facility] [place] [address] [facility] [address] [place] [address] Referral IDStatusReasonStart DateExpiration DateVisits RequestedVisits [id number] Auto-Generated Referral * Outpatient Procedure (Routine) - ClosedSpecialtyDiagnoses / ProceduresReferred By ContactReferred To [facility] Diagnoses Chronic cough Pleural effusion Interstitial pulmonary disease (HCC) Procedures LUNG DIFFUSION CAPACITY (DLCO) DIFFUSING CAPACITY Louise Cesar MD [address] [place] [address] [facility] [address] [place] [address] Referral IDStatusReasonStart DateExpiration DateVisits RequestedVisits [id number] Auto-Generated Referral * Outpatient Procedure (Routine) - AuthorizedSpecialtyDiagnoses / Procedures Referred By ContactReferred To [facility] [place] Diagnoses Pericarditis, unspecified chronicity, unspecified type Procedures ECHO ECHO TTHRC R-T 2D W/WOM-MODE COMPL SPEC&COLR D Louise Cesar MD [address] [place] [address] [place] [address] Referral IDStatusSairaasonStart DateExpiration DateVisits RequestedVisits [id number] Auto-Generated Referral * MRI/CT (Routine) - ClosedSpecialtyDiagnoses / ProceduresReferred By Contact Referred To ContactCT IMAGING Diagnoses Interstitial pulmonary disease (HCC) Procedures CT CHEST W IVCON DIAGNOSTIC COMPUTED TOMOGRAPHY THORAX W/CONTRAST Louise Cesar MD [address] [place] [address] Ct Imaging [place] [address] Referral IDStatusReasonStart DateExpiration DateVisits RequestedVisits [id number] Auto-Generated Referral [facility] for referral (narrative)* Outpatient Procedure (Routine) - ClosedSpecialtyDiagnoses / ProceduresReferred By ContactReferred To Contact [facility] [place] Diagnoses Pericarditis, unspecified chronicity, unspecified type Procedures ECHO ECHO TTHR R-T 2D W/WOM-MODE COMPL SPEC&COLR D Louise Cesar MD [address] [place] [address] [facility] [place] [address] Referral IDStatusSaint [facility] HospitalStgrenora DateExpiration DateVisits RequestedVisits [id number] Auto-Generated Referral / [facility] for referral (narrative)No reason for referral information availableC[facility] Clinic [facility] Work Phone: [facility] Narrative* Outpatient Procedure (Routine) - ClosedSpecialtyDiagnoses / ProceduresReferred By ContactReferred To [facility] [place] Diagnoses Pericarditis, unspecified chronicity, unspecified type Procedures ECHO ECHO TTHRC R-T 2D W/WOM-MODE COMPL SPEC&COLR D Louise Cesar MD [address] [place] [address] [facility] [place] [address] Referral IDStatusasonStgrenora DateExpiration DateVisits RequestedVisits [id number] Auto-Generated Referral [facility] for visit Narrative* Outpatient Procedure (Routine) - ClosedSpecialtyDiagnoses / ProceduresReferred By ContactReferred To Contact [facility] Diagnoses Diarrhea, unspecified type Procedures COLONOSCOPY DIAGNOSTIC COLONOSCOPY FLX DX W/COLLJ SPEC WHEN Sue Boateng MD [address] [place] [address] [facility] [address] [place] [address] Referral IDStatusReasonMontgomery DateExpiration DateVisits RequestedVisits [id number] Auto-Generated Referral / [facility] for visit Narrative* Diagnostic Procedure Only (Routine) - ClosedSpecialtyDiagnoses / ProceduresReferred By ContactReferred To Contact XR IMAGING Diagnoses Pleural effusion Procedures XR CHEST 1V DECUBITUS RIGHT RADIOLOGIC EXAM CHEST SINGLE VIEW Triston Riggs MD [address] [place] [address] Phone: tel: fax: [facility]R [facility] [place] [address] Ref[facility] DateExpiration DateVisits RequestedVisits [id number] Auto-Generated Referral / [facility] for visit Narrative* Outpatient Procedure (Routine) - ClosedSpecialtyDiagnoses / ProceduresReferred By ContactReferred To Contact [facility] Diagnoses Esophageal dysphagia Procedures EGD DIAGNOSTIC ESOPHAGOGASTRODUODENOSCOPY TRANSORAL DIAGNOSTIC NasSue ribeiro MD [address] [place] [address] Phone: tel: fax: [facility] [place] [address] Referral IDStatus[facility] DateExpiration DateVisits RequestedVisits [id number] Auto-Generated Referral / [facility] for visit Narrative* Diagnostic Procedure Only (Routine) - ClosedSpecialtyDiagnoses / ProceduresReferred By ContactReferred To Contact US IMAGING Diagnoses Elevated alkaline phosphatase level Procedures US ABD RIGHT UPPER QUADRANT US ABDOMINAL REAL TIME W/IMAGE LIMITED Xiomara Ly, LETICIA.SET UP MECHANIC AUTOMAT[employer] LINE [address] [place] [address] Phone: tel: fax: US IMAG[facility] [place] [address] Referral IDStatusReasonStgrenora DateExpiration DateVisits RequestedVisits [id number] Auto-Generated Referral [facility] for visit Narrative* Diagnostic Procedure Only (Routine) - ClosedSpecialtyDiagnoses / ProceduresReferred By ContactReferred To Contact US IMAG[facility] Diagnoses Hepatomegaly Procedures US ELASTOGRAPHY LIVER ULTRASOUND E[place]OGRAP[place] [address] [place] [address] Phone: tel: fax: [facility] [place] [address] Referral IDStausRiverside Behavioral Health Center DateExpiration DateVisits RequestedVisits [id number] Auto-Generated Referral [facility] for visit Narrative* Diagnostic Procedure Only (Routine) - ClosedSpecialtyDiagnoses / ProceduresReferred By ContactReferred To Contact [facility]AG[facility] Diagnoses Other ascites Procedures US DOPPLER COMPLETE DUP-SCAN ARTL KRYSTAL ABDL/PEL/SCROT&/RPR ORGN COM Marlyn Hooper APRN.SET UP MECHANIC AUTOMATIC LINE [address] [place] [address] Phone: tel: fax: [facility] [place] [address] Referral IDStausRiverside Behavioral Health Center DateExpiration DateVisits RequestedVisits [id number] Auto-Generated Referral [facility] DiagnosisPrimary osteoarthritis of right knee - PrimaryStatus post total right knee replacementDiagnosisPrimary osteoarthritis of right knee - PrimaryStatus post total right knee replacementDiagnosis Status post total knee replacement, bilateral Diagnosis Status post total knee replacement, bilateral- Primary History of Present Illness * Karthik Calloway MD - 01/29/2017 12:04 PM EDT Formatting of this note may be different from the original. [facility] [address] [place] [address] [phone] [place] [address] Patient Name: Sav Raymundo Patient Age: 66 [...] note may be different from the original. [facility] [address] [facility], [facility] [phone] [place] [address] Patient Name: Sav Raymundo Patient Age: 66 [...] Karthik Calloway MD in this encounter* Nena HuffFlorence, DO - 07/01/2019 10:05 AM EST [facility] [address] [place] [address] Patient Name: Sav Raymundo Patient Age: 69 [...] KNEE ARTHROPLASTY; Surgeon: Karthik Calloway MD; Location: [facility] OR; Service: ARTHROPLASTY KNEE TOTAL Right 06/25/2016 Procedure: RIGHT TOTAL KNEE ARTHROPLASTY ; Surgeon: Karthik Calloway MD; Location: [facility] OR; Service: BASAL CELL CARCINOMA [...] file Gets together: Not on file Attends adventism service: Not on file Active member of [...] mouth every morning . vit A-vit C-vit O-kglz-fuqczh (EYE VITAMIN AND MINERALS) 7,160-113-100 narx-tn-nket Tab Take 1 tablet by mouth every [...] with no interval change from most recentimaging. [place] view shows the patella tracks well without [...] expedite correspondence this note was generated by ViS voice recognition software. Somegrammatical or spelling errors may occur using the system. documented in this encounter* Nena Huff DO - 07/20/2020 2:42 PM EST [facility] [address] [place] [address] Patient Name: Sav Raymundo Patient Age: 70 [...] KNEE ARTHROPLASTY; Surgeon: Karthik Calloway MD; Location: [facility] OR; Service: ARTHROPLASTY KNEE TOTAL Right 06/25/2016 Procedure: RIGHT TOTAL KNEE ARTHROPLASTY ; Surgeon: Karthik Calloway MD; Location: [facility] OR; Service: BASAL CELL CARCINOMA [...] file Gets together: Not on file Attends adventism service: Not on file Active member of [...] mg by mouth daily. vit A-vit C-vit O-mjpb-jepnwv (EYE VITAMIN AND MINERALS) 7,160-113-100 dbjy-ne-vgsk Tab Take 1 tablet by mouth every [...] with no interval change from most recentimaging. [place] view shows the patella tracks well in [...] expedite correspondence this note was generated by [employer] Box recognition software. Somegrammatical or spelling errors may occur using the system. documented in this encounter Advance Directives TypeDate RecordedPatient RepresentativeExplanationAdvance Directives and Living WillCode [...] PMDate ActivatedDate InactivatedComments08/23/2014 6:45 AM08/25/2014 7:58 PM Advance Directive Response Recorded Date/ Time Advance Directives No October 19, 2020 10:13am Summary Purpose Family History Relationship Condition Age [...] Complaint not doing good - per Dr Mraiscal Amb Documentation Unknown UnknownReason for VisitNausea & [...] :31am Primary hypertension April 09, 2025 9:31am Chief Complaint Admit Date Amb Documentation April 08, 2025 9 :50am [facility] f/u April 09, 2025 9 :31am Office Visit April 19, 2025 4 :03pm Reason for Referral SpecialtyDiagnoses / ProceduresReferred By ContactReferred To ContactCT IMAGING Diagnoses Pleural effusion Lung nodule Procedures CT CHEST WO IVCON DIAGNOSTIC COMPUTED TOMOGRAPHY THORAX W/O CNTRST Louise Cesar MD [address] [place] [address] Ct Imaging [place] [address] Referral IDStatusReasonStart DateExpiration DateVisits RequestedVisits [id number] Request Auto-Generated Referral /[id number] / ProceduresReferred By ContactReferred To ContactCT IMAGING Diagnoses Diarrhea, unspecified type Abdominal pain, unspecified abdominal location Procedures CT ENTEROGRAPHY W IVCON CT ABD & PELVIS W/CONTRAST Sue Murillo MD [address] [place] [address] Ct Imaging [place] [address] Referral IDStatusReasonStart DateExpiration DateVisits RequestedVisits [id number] Auto-Generated Referral [id number] / ProceduresReferred By ContactReferred To ContactGastroenterology Diagnoses Diarrhea, unspecified type Procedures CONSULT TO GASTROENTEROLOGY OFFICE/OUTPATIENT [facility] 60 MINUTES Steffen Mccarty MD [address] [place] [address] Referral IDStatusReasonStart DateExpiration DateVisits RequestedVisits [id number] PCP Requested Referral [id number] / ProceduresReferred By ContactReferred To ContactRheumatology Diagnoses Pleural effusion Elevated sed rate Elevated C-reactive protein (CRP) Procedures CONSULT TO RHEUM/IMMUN DISEASE OFFICE/OUTPATIENT [facility] 60 MINUTES Tita Landry APRN.SET UP MECHANIC AUTOMATIC LINE [address] [place] [address] Referral IDStatusReasonStart DateExpiration DateVisits RequestedVisits [id number] PCP Requested Referral / Additional Source Comments Reason for Visit (unrecogniz ed section and content) ReasonCommentsConsultSpecialtyDiagnoses / ProceduresReferred By ContactReferred To ContactNephrology Diagnoses Elevated BUN Elevated serum creatinine Decreased GFR Procedures CONSULT TO NEPHROLOGY CONSULT TO NEPHROLOGY OFFICE/OUTPATIENT [facility] 60 MINUTES Xiomara Ly APRN.SET UP MECHANIC AUTOMATIC LINE [address] [place] [id number] Phone: tel: fax: Referral IDStatusReasonStart DateExpiration DateVisits RequestedVisits [id number] PCP Requested Referral [id number]p Patient Follow-UpSpecialty Diagnoses / ProceduresReferred By ContactReferred To Contact Diagnoses Anas[facility]a Procedures [address] [place] [address] IP/OBS CARE HIGH MDM 75 MINUTES [address] [place] [address] Referral IDStatusReasonStart DateExpiration DateVisits RequestedVisits [id number]-exDhwnhuYvlhqxudemjzjGwh carlito stays swollen but goes to a massage therapist and she gets the swelling to go down/ She 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 lymph drainageFollow-upReasonOnset DateCommentsMedication [id number]Onset DateCommentsMedication Refill 08/28/2022ReasonOnset DateCommentsMedication Zbpaqw2908/30/2022ReasonOnset Date CommentsMedication Vizfwk7402/11/2023ReasonCommentsExternal Referrals/resources ReasonCommentsSchedule SurgeryRight VATS biopsy/ pleurodesis cs=2.5 los =2-3 ReasonCommentsPatient Questionpt notReasonCommentsPre-Op ExamSpecialtyDiagnoses / ProceduresReferred By ContactReferred To ContactADMITTING Diagnoses Bronchiolar disease Procedures THORACENTESIS NEEDLE/CATH PLEURA W/IMAGING THORACENTESIS NEEDLE OR CATHETER ASPIRATION OF THE PLEURAL SPACE W IMAGING GUIDANCE [facility] Pul Lab H[address] [address] Referral IDStatusRe[facility] DateExpiration DateVisits RequestedVisits [id number] NMSpecialtyDiagnoses / Procedures Referred By ContactReferred To ContactMOLECULAR & FUNCTIONAL IMAGING Diagnoses Pleural effusion Encounter for other preprocedural examination Procedures NM CARDIAC PERF STRESS/EXERCISE MYOCARDIAL SPECT MULTIPLE STUDIES Ronaldo Flood MD, PhD [address] [facility] [address] [place] [address] Molecular & Functional Imaging [address] [place] [address] Referral IDStatusReasonStgrenora DateExpiration DateVisits RequestedVisits [id number] Auto-Generated Referral 5/13/07231/072728RwmclzWgandlyuAldmdflf and Confirm AppointmentsReasonComments EffusionReasonCommentsHospital Follow UpReasonCommentsReceived Outside Medical RecordsReasonCommentsEstablished Patient Follow-UpReasonCommentsBreathing ProblemPleural Effusion on the rightMedication Follow-upReasonCommentsPatient UpdatePleurex outputReasonCommentsPost Dc Program Call - Needs AttnReason CommentsPatient UpdateReasonCommentsSpirometrySpecialtyDiagnoses / Procedures Referred By ContactReferred To [facility] Diagnoses Chronic cough Pleural effusion Procedures NITRIC OXIDE, EXHALED NITRIC OXIDE GAS DETERMINATION Katerina Bravo, 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.SET UP MECHANIC AUTOMATIC LINE [address] [place] [address] [address] Referral IDStatusResaint john's regional health centerStart DateExpiration DateVisits RequestedVisits [id number] Auto-Generated Referral /[id number] / ProceduresReferred By ContactReferred To [facility] Diagnoses Chronic cough Pleural effusion Procedures SPIROMETRY WITH DILATOR IF OBSTRUCTED BRNCDILAT RSPSE SPMTRY PRE&POST-BRNCDILAT ADMN Katerina Bravo, 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.SET UP MECHANIC AUTOMATIC LINE [address] [place] [address] [address] Referral IDStatusReasonStart DateExpiration DateVisits RequestedVisits [id number] Auto-Generated Referral /[id number] / ProceduresReferred By ContactRefsaddleback memorial medical centered To [facility] Diagnoses Chronic cough Pleural effusion Interstitial pulmonary disease (HCC) Procedures LUNG DIFFUSION CAPACITY (DLCO) DIFFUSING CAPACITY Louise Cesar MD [address] [place] [address] [address] Referral IDStatusReasonStart DateExpiration DateVisits RequestedVisits [id number] Auto-Generated Referral [id number] / ProceduresReferred By ContactReferred To ContactSIER[facility] Diagnoses Pleural effusion Interstitial pulmonary disease (HCC) Procedures LUNG VOLUMES Louise Cesar MD [address] [place] [address] Respiratory [place] [address] [place] [address] Referral IDStatusReM[facility] DateExpiration DateVisits RequestedVisits [id number] Auto-Generated Referral [id number]mcSpgepvoob / ProceduresReferred By ContactReferred To ContactCT IMAGING Diagnoses Interstitial pulmonary disease (HCC) Procedures CT CHEST W IVCON DIAGNOSTIC COMPUTED TOMOGRAPHY THORAX W/CONTRAST Louise Cesar MD [address] [place] [address] Ct Imaging [place] [address] Referral IDStatusRe[facility] DateExpiration DateVisits RequestedVisits [id number] Auto-Generated Referral [id number] pleural effusionSpecialtyDiagnoses / ProceduresReferred By ContactReferred To ContactRheumatology Diagnoses Pleural effusion Elevated sed rate Elevated C-reactive protein (CRP) Procedures CONSULT TO RHEUM/IMMUN DISEASE OFFICE/OUTPATIENT [facility] 60 MINUTES GrisTita larios, 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.SET UP MECHANIC AUTOMATIC LINE [address] [place] [address] Referral IDStatusReasonMontgomery DateExpiration DateVisits RequestedVisits [id number] PCP Requested Referral [id number] CTSpecialtyDiagnoses / Procedures Referred By ContactReferred To ContactCT IMAGING Diagnoses Diarrhea, unspecified type Abdominal pain, unspecified abdominal location Procedures CT ENTEROGRAPHY W IVCON CT ABD & PELVIS W/CONTRAST Sue Murillo MD [address] [place] [address] Ct Imaging [place] [address] Referral IDStatusReasonStart DateExpiration DateVisits RequestedVisits [id number] Auto-Generated Referral [id number]sycgiivTlkzmzgfq / Procedures Referred By ContactReferred To ContactGastroenterology Diagnoses Diarrhea, unspecified type Procedures CONSULT TO GASTROENTEROLOGY OFFICE/OUTPATIENT [facility] 60 MINUTES Steffen Mccarty MD [address] [place] [address] Referral IDStatusReasonStart DateExpiration DateVisits RequestedVisits [id number] PCP Requested Referral [id number] ProblemFollow upReasonComments Follow UpReasonCommentsEstablished PatientDiarrhea f/uReasonCommentsEffusion Recurrent pleural on rightReasonCommentsAppointmentReasonOnset DateComments Medication Ugzwyt6707/08/2024ReasonOnset DateCommentsMedication Zszqph3407/10/2024 ReasonCommentsOrdersReasonCommentsEye ExamReasonCommentsPatient QuestionReason CommentsPatient RequestReasonCommentsEstablished PatientReasonOnset DateComments Refill Sevlqho6508/21/2024ReasonCommentsEstablished PatientDiarrhea 3 mos follow upReasonCommentsSkin CheckReasonCommentsAppointmentThoracentesisReasonComments Lab & Test ResultsHospital Follow UpReasonCommentsAppointment ConfirmationReason CommentsRadio Gen RMPReasonCommentsEstablished PatientAbdominal painAbdominal PainReasonCommentsRefill RequestSpecialtyDiagnoses / ProceduresReferred By ContactReferred To ContactADMITTING Diagnoses 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] Procedures THORACENTESIS NEEDLE/CATH PLEURA W/IMAGING THORACENTESIS NEEDLE OR CATHETER ASPIRATION OF THE PLEURAL SPACE W IMAGING GUIDANCE Admitting [address] [place] [address] Referral IDStatusReasonStart DateExpiration DateVisits RequestedVisits [id number] Main H7IrihsvLsvjnmkbCykshf UpReason CommentsRadio Gen QZ2QxzdzlNuixfylbHzr PatientReasonCommentsFollow UpShortness of BreathReasonCommentsRadio Gen R11XojoybOhnmljduNuvoujiRxkqaqLvzfdqbdugcvglwt alkaline phosphataseSpecialtyDiagnoses / ProceduresReferred By ContactReferred To Contact Diagnoses Elevated alkaline phosphatase level Procedures CONSULT TO HEPATOLOGY OFFICE/OUTPATIENT [facility] 60 MINUTES Xiomara Ly, 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.SET UP MECHANIC AUTOMATIC LINE [address] [place] [address] Phone: tel: fax: Referral IDStatusReasonStart DateExpiration DateVisits RequestedVisits [id number] PCP Requested Referral /[id number] UpSpecialtyDiagnoses / ProceduresReferred By ContactReferred To ContactNephrology Diagnoses Elevated serum creatinine Procedures OFFICE/OUTPATIENT [facility] 60 MINUTES Marlyn Hooper, 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.SET UP MECHANIC AUTOMATIC LINE [address] [place] [address] Phone: tel: fax: Referral IDStatusReasonStgrenora DateExpiration DateVisits RequestedVisits [id number] PCP Requested Referral /[id number] ProblemPT is here today with his spouse [...] male. Established patient relates he was in [facility] for 6 days 04/02/2025,Cellulitis left foot to groin. Presents today for Nail care and wound fuv of the left 2ndtoe. Patient states Doxycycline and Augmentin until Saturday. Patient has been using mupirocin ointment and band- aid. Care Teams (unrecognized sec tion and content) Team MemberRelationshipSpecialtyStart DateEnd Date Yuli Mariscal, DO [address] [facility] [place] [address] [place] [address] PCP - GeneralInternal Medicine06/29/14 Yuli Mariscal, DO [address] [facility] [place] [address] [address] [place] [address] Internal Medicine06/29/14 Karthik Calloway MD Consulting PhysicianOrthopedic Surgery01/28/17Team MemberRelationshipSpecialty Start DateEnd Date Yuli Mariscal, DO [address] [facility] [place] [address] [place] [address] PCP - GeneralInternal Medicine06/29/14 Yuli Mariscal, DO [address] [facility] [place] [address] [address] [place] [address] Internal Medicine06/29/14 Karthik Calloway MD [address] [facility] [place] [address] [place] [address] Consulting PhysicianOrthopedic Surgery01/28/17Team MemberRelationshipSpecialty Start DateEnd Date Yuli Mariscal, DO [address] [facility] [place] [address] [address] [place] [address] PCP - GeneralInternal Medicine06/29/14 Yuli Mariscal, DO [address] [facility] [place] [address] [address] [place] [address] Internal Medicine06/29/14 Karthik Calloway MD [address] [facility] [place] [address] [place] [address] Consulting PhysicianOrthopedic Surgery01/28/17Team MemberRelationshipSpecialty Start DateEnd Date Yuli Mariscal, DO [address] [facility] [place] [address] [place] [address] PCP - GeneralInternal Medicine06/29/14 Yuli Mariscal, [address] [facility] [address] Internal Medicine06/29/14 Karthik Calloway MD [address] [facility] [place] [place] [address] Consulting PhysicianOrthopedic Surgery01/28/17Team MemberRelationshipSpecialty Start DateEnd Date Yuli Mariscal DO [address] [facility] [place] [address] PCP - GeneralInternal Medicine06/29/14 Yuli Mariscal DO [address] [facility] [place] [address] Internal Medicine06/29/14 Karthik Calloway MD [address] [facility] [place] [address] Consulting PhysicianOrthopedic Surgery01/28/17Team MemberRelationshipSpecialty Start DateEnd Date Yuli Mariscal DO [address] [facility] [place] [address] PCP - GeneralInternal Medicine06/29/14 Yuli Mariscal DO [address] [facility] [place] [address] Internal Medicine06/29/14 Karthik Calloway MD [address] [facility] [place] [address] Consulting PhysicianOrthopedic Surgery01/28/17Team MemberRelationshipSpecialty Start DateEnd Date Yuli Mariscal, [address] [facility] [place] [address] PCP - GeneralInternal Medicine06/29/14 Yuli Mariscal DO [address] [facility] [place] [address] Internal Medicine06/29/14 Karthik Calloway MD [address] [facility] [place] [address] Consulting PhysicianOrthopedic Surgery01/28/17Team MemberRelationshipSpecialty Start DateEnd Date Yuli Mariscal DO [address] [facility] [place] [address] PCP - GeneralInternal Medicine06/29/14 Yuli Mariscal DO [address] [facility] [place] [address] Internal Medicine06/29/14 Karthik Calloway MD [address] [facility] [place] [address] Consulting PhysicianOrthopedic Surgery01/28/17Team MemberRelationshipSpecialty Start DateEnd Date Yuli Mariscal DO [address] [facility] [place] [address] PCP - GeneralInternal Medicine06/29/14 Yuli Mariscal DO [address] [facility] [place] [address] Internal Medicine06/29/14 Karthik Calloway MD [address] [facility] [place] [address] Consulting PhysicianOrthopedic Surgery01/28/17 Team Status: Inactive Member Role Status Dates Yuli Mariscal DO Primary Care Provide r, Attending Provider Active Start: August 13, 2023 End: August 13, 2023 Team Status: Active Member Role Status Dates Yuli Mariscal DO Primary Care Provide r, Attending Provider Active Start: August 15, 2023 Team Status: Active Member Role Status Dates Yuli Ball , DO Primary Care Provide r, Attending [...] Inactive Member Role Status Dates Sintia Clemente , Attending Provider Active St art: September 04, 2023 End: September 04, 2023 Team Status: Inactive Member Role Status Dates Sintia Clemente , DO Attending Provider Active St art: September 05, 2023 End: September 05, 2023 Team Status: Active Member Role Status Dates Yuli Mariscal , Attending Provider Active Sta rt: September 11, 2023 Team Status: Active Member Role Status Dates Yuli Mariscal , Attending Provider Active Sta rt: October 01, 2023 Team Status: Inactive Member Role Status Dates Sintia Clemente , DO Attending Provider Active St art: October 02, 2023 End: October 02, 2023Team MemberRelationshipSpecialtyStart DateEnd Date Yuli Mariscal DO [address] [place] [address] PCP - GeneralInternal Medicine12/07/20 Jere Sales [address] [address] [facility]12/05/20Team MemberRelationshipSpecialtyStart DateEnd Date Yuli Mariscal DO [address] [place] [address] PCP - GeneralAri[facility] Hospitalnal Medicine12/07/20 Jere Sales [address] [address] ReferringGastmackinac straits hospitalology12/05/20 Sintia Clemente DO [address] [facility] [place] [address] Internal Medicine10/16/23Team MemberRelationshipSpecialtyStart DateEnd Date Yuli Mariscal DO [address] [place] [facility] [address] PCP - GeneralInternal Medicine12/07/20 Jere Sales [address] [facility] [address] [place] [address] ReferringGastroenterology12/05/20 Sintia Clemente DO [address] [facility] [place] [address] Internal Medicine10/16/23Team MemberRelationshipSpecialtyStart DateEnd Date Yuli Mariscal DO [address] [place] [facility] [place] [address] PCP - GeneralInternal Medicine12/07/20 Jere Sales [address] [facility] [address] [place] [address] ReferringGastroenterology12/05/20 Sintia Clemente DO [address] [facility] [place] [address] Internal Medicine10/16/23Team MemberRelationshipSpecialtyStart DateEnd Date Yuli Mariscal DO [address] [place] [facility] [place] [address] PCP - GeneralInternal Medicine12/07/20 Jere Sales [address] [place] [address] ReferringGastroenterology12/05/20 Sintia Clemente DO [address] [facility] [place] [address] Internal Medicine10/16/23Team MemberRelationshipSpecialtyStart DateEnd Date Yuli Mariscal, [address] [place] [facility] [place] [address] PCP - GeneralInternal Medicine12/07/20 Jere Sales [address] [place] [address] ReferringGastroenterology12/05/20 Sintia Clemente DO [address] [facility] [place] [address] Internal Medicine10/16/23Team MemberRelationshipSpecialtyStart DateEnd Date Yuli Mariscal, [address] [place] [facility] [place] [address] PCP - GeneralInternal Medicine12/07/20 [facility] Jere Cynthia [address] [place] [address] ReferringGastroenterology12/05/20 Sintia Clemente DO [address] [facility] [place] [address] Internal Medicine10/16/23Team MemberRelationshipSpecialtyStart DateEnd Date Yuli Mariscal DO [address] [place] [facility] [place] [address] PCP - GeneralInternal Medicine12/07/20 Jere Sales [address] [facility] [address] [place] [address] ReferringGastroenterology12/05/20 Sintia Clemente DO [address] [facility] [place] [address] Internal Medicine10/16/23Team MemberRelationshipSpecialtyStart DateEnd Yuli Howell DO [address] [place] [facility] [place] [address] PCP - GeneralInternal Medicine12/07/20 Jere Sales [address] [place] [address] ReferringGastroenterology12/05/20 Sintia Clemente DO [address] [facility] [place] [address] Internal Medicine10/16/23Team MemberRelationshipSpecialtyStart DateEnd Yuli Howell DO [address] [place] [facility] [place] [address] PCP - GeneralInternal Medicine12/07/20 Jere Sales [address] [facility] [address] [place] [address] ReferringGastroenterology12/05/20 Sintia Clemente DO [address] [facility] [place] [address] Internal Medicine10/16/23Team MemberRelationshipSpecialtyStart DateEnd Yuli Howell DO [address] [place] [facility] [place] [address] PCP - GeneralInternal Medicine12/07/20 Jere Sales [address] [place] [address] ReferringGastroenterology12/05/20 Sintia Clemente DO [address] [facility] [place] [address] Internal Medicine10/16/23Team MemberRelationshipSpecialtyStart DateEnd Yuli Howell DO [address] [place] [facility] [place] [address] PCP - GeneralInternal Medicine12/07/20 Jere Sales [address] [place] [address] ReferringGastroenterology12/05/20 Sintia Clemente DO [address] [facility] [place] [address] Internal Medicine10/16/23Team MemberRelationshipSpecialtyStart DateEnd Yuli Howell DO [address] [place] [facility] [place] [address] PCP - GeneralInternal Medicine12/07/20 Jere Sales [address] [address] ReferringGastroenterology12/05/20 Sintia Clemente DO [address] [facility] [place] [address] Internal Medicine10/16/23Team MemberRelationshipSpecialtyStart DateEnd Date Yuli Mariscal DO [address] [place] [facility] [place] [address] PCP - GeneralInternal Medicine12/07/20 Jere Sales [address] [address] ReferringGastroenterology12/05/20 Sintia Clemente DO [address] [facility] [place] [address] Internal Medicine10/16/23Team MemberRelationshipSpecialtyStart DateEnd Date Yuli Mariscal DO [address] [place] [facility] [place] [address] PCP - GeneralInternal Medicine12/07/20 Jere Sales [address] [address] ReferringGastroenterology12/05/20 Sintia Clemente DO [address] [facility] [place] [address] Internal Medicine10/16/23Team MemberRelationshipSpecialtyStart DateEnd Date Yuli Mariscal DO [address] [place] [facility] [place] [address] PCP - GeneralInternal Medicine12/07/20 Jere Sales [address] [place] [address] [place] [address] ReferringGastroenterology12/05/20 Sintia Clemente DO [address] [facility] [place] [address] Internal Medicine10/16/23Team MemberRelationshipSpecialtyStart DateEnd Date Yuli Mariscal DO [address] [place] [facility] [place] [address] PCP - GeneralInternal Medicine12/07/20 Jere Sales [address] [place] [address] ReferringGastroenterology12/05/20 Sintia Clemente DO [address] [facility] [place] [address] Internal Medicine10/16/23Team MemberRelationshipSpecialtyStart DateEnd Date Yuli Mariscal DO [address] [place] [facility] [place] [address] PCP - GeneralInternal Medicine12/07/20 Jere Sales [address] [place] [address] ReferringGastroenterology12/05/20 Sintia Clemente DO [address] [facility] [place] [address] Internal Medicine10/16/23Team MemberRelationshipSpecialtyStart DateEnd Date Yuli Mariscal DO [address] [place] [place] [address] PCP - GeneralInternal Medicine12/07/20 Jere Sales [address] [place] [address] ReferringGastroenterology12/05/20 Sintia Clemente DO [address] [facility] [place] [address] Internal Medicine10/16/23Team MemberRelationshipSpecialtyStart DateEnd Date Yuli Mariscal DO [address] [place] [facility] [place] [address] PCP - GeneralInternal Medicine12/07/20 Jere Sales [address] [place] [address] ReferringGastroenterology12/05/20 Sintia Clemente DO [address] [facility] [place] [address] Internal Medicine10/16/23Team MemberRelationshipSpecialtyStart DateEnd Date Yuli Mariscal DO [address] [place] [facility] [place] [address] PCP - GeneralInternal Medicine12/07/20 Jere Sales [address] [place] [address] ReferringGastroenterology12/05/20 Sintia Clemente DO [address] [place] [address] Internal Medicine10/16/23Team MemberRelationshipSpecialtyStart DateEnd Date Yuli Mariscal, [address] [place] [place] [address] PCP - GeneralInternal Medicine12/07/20 Jere Sales [address] [address] ReferringGastroenterology12/05/20 Sintia Clemente DO [address] [facility] [place] [address] Internal Medicine10/16/23Team MemberRelationshipSpecialtyStart DateEnd Date Yuli Mariscal DO [address] [place] [address] PCP - GeneralInternal Medicine12/07/20 Jere Sales [address] [address] ReferringGastroenterology12/05/20 Sintia Clemente DO [address] [facility] [place] [address] Internal Medicine10/16/23Team MemberRelationshipSpecialtyStart DateEnd Date Yuli Mariscal DO [address] [place] [facility] [place] [address] PCP - GeneralInternal Medicine12/07/20 Jere Sales [address] [place] [address] ReferringGastroenterology12/05/20 Sintia Clemente DO [address] [facility] [place] [address] Internal Medicine10/16/23Team MemberRelationshipSpecialtyStart DateEnd Date Yuli Mariscal, [address] [place] [facility] [place] [address] PCP - GeneralInternal Medicine12/07/20 Jere Sales [address] [place] [address] ReferringGastroenterology12/05/20 Sintia Clemente DO [address] [facility] [place] [address] Internal Medicine10/16/23Team MemberRelationshipSpecialtyStart DateEnd Date Yuli Mariscal DO [address] [place] [place] [address] PCP - GeneralInternal Medicine12/07/20 Jere Sales [address] [place] [address] ReferringGastroenterology12/05/20 Sintia Clemente DO [address] [facility] [place] [address] Internal Medicine10/16/23Team MemberRelationshipSpecialtyStart DateEnd Date Yuli Mariscal DO [address] [place] [address] PCP - GeneralInternal Medicine12/07/20 Jere Sales [address] [facility] [address] [place] [address] ReferringGastroenterology12/05/20 Sintia Clemente DO [address] [facility] [place] [address] Internal Medicine10/16/23Team MemberRelationshipSpecialtyStart DateEnd Date Yuli Mariscal DO [address] [place] [address] PCP - GeneralInternal Medicine12/07/20 Jere Sales [address] [place] [address] ReferringGastroenterology12/05/20 Sintia Clemente DO [address] [facility] [place] [address] Internal Medicine10/16/23Team MemberRelationshipSpecialtyStart DateEnd Date Yuli Mariscal DO [address] [place] [place] [address] PCP - GeneralInternal Medicine12/07/20 Jere Sales [address] [facility] [address] [place] [address] ReferringGastroenterology12/05/20 Sintia Clemente DO [address] [facility] [place] [address] Internal Medicine10/16/23Team MemberRelationshipSpecialtyStart DateEnd Date Yuli Mariscal DO [address] [place] [address] PCP - GeneralInternal Medicine12/07/20 Jere Sales [address] [facility] [address] [place] [address] ReferringGastroenterology12/05/20 Sintia Clemente DO [address] [facility] [place] [address] Internal Medicine10/16/23Team MemberRelationshipSpecialtyStart DateEnd Date Yuli Mariscal DO [address] [place] [address] PCP - GeneralInternal Medicine12/07/20 Jere Sales [address] [facility] [address] [place] [address] ReferringGastroenterology12/05/20 Sintia Clemente DO [address] [facility] [place] [address] Internal Medicine10/16/23Team MemberRelationshipSpecialtyStart DateEnd Yuli Howell DO [address] [place] [address] PCP - GeneralInternal Medicine12/07/20 Jere Sales [address] [place] [address] ReferringGastroenterology12/05/20 Sintia Clemente DO [address] [facility] [place] [address] Internal Medicine10/16/23Team MemberRelationshipSpecialtyStart DateEnd Yuli Howell, [address] [place] [address] PCP - GeneralInternal Medicine12/07/20 Jere Sales [address] [place] [address] ReferringGastroenterology12/05/20 Sintia Clemente DO [address] [facility] [place] [address] Internal Medicine10/16/23Team MemberRelationshipSpecialtyStart DateEnd Yuli Howell DO [address] [place] [address] PCP - GeneralInternal Medicine12/07/20 Merliam Jere Cynthia [address] [place] [address] ReferringGastroenterology12/05/20 Sintia Clemente DO [address] [facility] [place] [address] Internal Medicine10/16/23Team MemberRelationshipSpecialtyStart DateEnd Yuli Howell DO [address] [place] [address] PCP - GeneralInternal Medicine12/07/20 Jere Sales [address] [place] [address] ReferringGastroenterology12/05/20 Sintia Clemente DO [address] [facility] [place] [address] Internal Medicine10/16/23Team MemberRelationshipSpecialtyStart DateEnd Date Yuli Mariscal DO [address] [place] [address] PCP - GeneralInternal Medicine12/07/20 Jere Sales [address] [place] [address] ReferringGastroenterology12/05/20 Sintia Clemente DO [address] [facility] [place] [address] Internal Medicine10/16/23Team MemberRelationshipSpecialtyStart DateEnd Date Yuli Mariscal DO [address] [place] [address] PCP - GeneralInternal Medicine12/07/20 Jere Sales [address] [place] [address] ReferringGastroenterology12/05/20 Sintia Clemente DO [address] [facility] [place] [address] Internal Medicine10/16/23Team MemberRelationshipSpecialtyStart DateEnd Yuli Howell DO [address] [place] [address] PCP - GeneralInternal Medicine12/07/20 Jere Sales [address] [place] [address] ReferringGastroenterology12/05/20 Sintia Clemente DO [address] [facility] [place] [address] Internal Medicine10/16/23Team MemberRelationshipSpecialtyStart DateEnd Yuli Howell DO [address] [place] [address] PCP - GeneralInternal Medicine12/07/20 Jere Sales [address] [place] [address] ReferringGastroenterology12/05/20 Sintia Clemente DO [address] [facility] [place] [address] Internal Medicine10/16/23Team MemberRelationshipSpecialtyStart DateEnd Yuli Howell DO [address] [place] [address] PCP - GeneralInternal Medicine12/07/20 Jere Sales [address] [place] [address] ReferringGastroenterology12/05/20 Sintia Clemente DO [address] [facility] [place] [address] Internal Medicine10/16/23Team MemberRelationshipSpecialtyStart DateEnd Date Yuli Mariscal DO [address] [place] [address] PCP - GeneralInternal Medicine12/07/20 Jere Sales [address] [place] [id number] ReferringGastroenterology12/05/20 Sintia Clemente DO [address] [facility] [place] [address] Internal Medicine10/16/23Team MemberRelationshipSpecialtyStart DateEnd Date Yuli Mariscal DO [address] [place] [address] PCP - GeneralInternal Medicine12/07/20 Jere Sales [address] [address] ReferringGastroenterology12/05/20 Sintia Clemente DO [address] [facility] [place] [address] Internal Medicine10/16/23Team MemberRelationshipSpecialtyStart DateEnd Date Yuli Mariscal DO [address] [place] [place] [address] PCP - GeneralInternal Medicine12/07/20 Jere Sales [address] [address] ReferringGastroenterology12/05/20 Sintia Clemente DO [address] [place] [address] Internal Medicine10/16/23Team MemberRelationshipSpecialtyStart DateEnd Date Yuli Mariscal DO [address] [place] [address] PCP - GeneralInternal Medicine12/07/20 Jere Sales MD [address] [address] ReferringGastroenterology12/05/20 Sintia Clemente DO [address] [place] [address] Internal Medicine10/16/23Team MemberRelationshipSpecialtyStart DateEnd Date Yuli Mariscal DO [address] [place] [address] PCP - GeneralInternal Medicine06/29/14 Yuli Mariscal DO [address] [place] [address] Internal Medicine06/29/14 Karthik Calloway MD [address] [place] [address] Consulting PhysicianOrthopedic Surgery01/28/17Team MemberRelationshipSpecialty Start DateEnd Date Yuli Mariscal DO [address] [place] [facility] [place] [address] PCP - GeneralInternal Medicine12/07/20 Jere Sales MD [address] [facility] [address] [place] [address] ReferringGastroenterology12/05/20 Sintia Clemente DO [address] [facility] [place] [address] Internal Medicine10/16/23Team MemberRelationshipSpecialtyStart DateEnd Date Yuli Mariscal DO [address] [place] [place] [address] PCP - GeneralInternal Medicine12/07/20 Jere Sales MD [address] [place] [address] ReferringGastroenterology12/05/20 Sintia Clemente DO [address] [facility] [place] [address] Internal Medicine10/16/23Team MemberRelationshipSpecialtyStart DateEnd Date Yuli Mariscal DO [address] [place] [place] [address] PCP - GeneralInternal Medicine12/07/20 Jere Sales MD [address] [place] [address] ReferringGastroenterology12/05/20 Sintia Clemente DO [address] [facility] [place] [address] Internal Medicine10/16/23Team MemberRelationshipSpecialtyStart DateEnd Date Yuli Mariscal DO [address] [place] [place] [address] PCP - GeneralInternal Medicine12/07/20 Jere Sales MD [address] [address] ReferringGastroenterology12/05/20 Sintia Clemente DO [address] [facility] [place] [address] Internal Medicine10/16/23Team MemberRelationshipSpecialtyStart DateEnd Date Yuli Mariscal DO [address] [place] [place] [address] PCP - GeneralInternal Medicine12/07/20 Jere Sales MD [address] [address] ReferringGastroenterology12/05/20 Sintia Clemente DO [address] [facility] [place] [address] Internal Medicine10/16/23Team MemberRelationshipSpecialtyStart DateEnd Date Yuli Mariscal DO [address] [place] [place] [address] PCP - GeneralInternal Medicine12/07/20 Jere Sales MD [address] [place] [address] ReferringGastroenterology12/05/20 Sintia Clemente DO [address] [facility] [place] [address] Internal Medicine10/16/23Team MemberRelationshipSpecialtyStart DateEnd Date Yuli Mariscal DO [address] [place] [place] [address] PCP - GeneralInternal Medicine12/07/20 Jere Sales MD [address] [place] [address] ReferringGastroenterology12/05/20 Sintia Clemente DO [address] [facility] [place] [address] Internal Medicine10/16/23Team MemberRelationshipSpecialtyStart DateEnd Date Yuli Mariscal DO [address] [place] [place] [address] PCP - GeneralInternal Medicine12/07/20 Jere Sales MD [address] [place] [address] ReferringGastroenterology12/05/20 Sintia Clemente DO [address] [facility] [place] [address] Internal Medicine10/16/23Team MemberRelationshipSpecialtyStart DateEnd Date Yuli Mariscal DO [address] [place] [place] [address] PCP - GeneralInternal Medicine12/07/20 Jere Sales MD [address] [facility] [address] [place] [address] ReferringGastroenterology12/05/20 Sintia Clemente DO [address] [facility] [place] [address] Internal Medicine10/16/23Team MemberRelationshipSpecialtyStart DateEnd Date Yuli Mariscal DO [address] [place] [place] [address] PCP - GeneralInternal Medicine12/07/20 Jere Sales MD [address] [place] [address] ReferringGastroenterology12/05/20 Sintia Clemente DO [address] [facility] [place] [address] Internal Medicine10/16/23Team MemberRelationshipSpecialtyStart DateEnd Date Yuli Mariscal DO [address] [place] [place] [address] PCP - GeneralInternal Medicine12/07/20 Jere Sales MD [address] [facility] [address] [place] [address] ReferringGastroenterology12/05/20 Sintia Clemente DO [address] [facility] [place] [address] Internal Medicine10/16/23Team MemberRelationshipSpecialtyStart DateEnd Date Yuli Mariscal DO [address] [place] [place] [address] PCP - GeneralInternal Medicine12/07/20 Jere Sales MD [address] [place] [address] ReferringGastroenterology12/05/20 Sintia Clemente DO [address] [facility] [place] [address] Internal Medicine10/16/23Team MemberRelationshipSpecialtyStart DateEnd Date Yuli Mariscal DO [address] [place] [facility] [place] [address] PCP - GeneralInternal Medicine12/07/20 Jere Sales MD [address] [place] [address] ReferringGastroenterology12/05/20 Sintia Clemente DO [address] [facility] [place] [address] Internal Medicine10/16/23Team MemberRelationshipSpecialtyStart DateEnd Yuli Howell DO [address] [place] [place] [address] PCP - GeneralInternal Medicine12/07/20 Jere Sales MD [address] [address] ReferringGastroenterology12/05/20 Sintia Clemente DO [address] [facility] [place] [address] Internal Medicine10/16/23 Team Status: Active Member Role Status Dates Yuli Mariscal , DO Primary Care Provider Active Team Status: [...] Care Provider Active Start: August 13, 2024 Cynthia Gamez ProviderActiveStart: August 13, 2024 Team Status: Active Member Role Status Dates Yuli Mariscal DO Primary Care Provider Active Start: August 24, 2024 Dominique Maldonado ProviderActiveStart: August 24, 2024 Team Status: Active Member Role Status Dates Yuli Mariscal DO Primary Care Provide r, Attending Provider Active Start: August 28, 2024 Team Status: Active Member Role Status Dates Yuli Mariscal DO Primary Care Provider Active Start: August 30, 2024 RAJEEV Miller-Vickey ProviderActiveStart: August 30, 2024 Team Status: Active Member Role Status Dates Yuli Mariscal DO Primary Care Provide r, Attending Provider Active Start: August 31, 2024 Team Status: Active Member Role Status Dates Yuli Mariscal DO Primary Care Provider Active Start: September 02, 2024 Cynthia Gamez ProviderActiveStart: September 02, 2024 Team Status: Active Member Role Status Dates Yuli Mariscal DO Primary Care Provide r, Attending Provider Active Start: September 03, 2024 Team Status: Inactive Member Role Status Dates Yuli Mariscal DO Primary Care Provide r, Attending Provider Active Start: September 11, 2024 End: September 11, 2024Team MemberRelationshipSpecialtyStart DateEnd Date Yuli Mariscal DO [address] [place] [address] PCP - GeneralInternal Medicine12/07/20 Jere Sales MD [address] [address] ReferringGastroenterology12/05/20 Sintia Clemente DO [address] [place] [address] Internal Medicine10/16/23Team MemberRelationshipSpecialtyStart DateEnd Date Yuli Mariscal DO [address] [place] [place] [address] PCP - GeneralInternal Medicine12/07/20 Jere Sales MD [address] [address] ReferringGastroenterology12/05/20 Sintia Clemente DO [address] [place] [address] Internal Medicine10/16/23Team MemberRelationshipSpecialtyStart DateEnd Date Yuil Mariscal DO [address] [place] [address] PCP - GeneralInternal Medicine12/07/20 Jere Sales MD [address] [address] ReferringGastroenterology12/05/20 Sintia Clemente DO [address] [place] [address] Internal Medicine10/16/23Team MemberRelationshipSpecialtyStart DateEnd Date Yuli Mariscal, [address] [place] [place] [address] PCP - GeneralInternal Medicine12/07/20 Jere Sales MD [address] [address] ReferringGastroenterology12/05/20 Sintia Clemente DO [address] [facility] [place] [address] Internal Medicine10/16/23Team MemberRelationshipSpecialtyStart DateEnd Date Yuli Mariscal DO [address] [place] [place] [address] PCP - GeneralInternal Medicine12/07/20 Jere Sales MD [address] [address] ReferringGastroenterology12/05/20 Sintia Clemente DO [address] [facility] [place] [address] Internal Medicine10/16/23Team MemberRelationshipSpecialtyStart DateEnd Date Yuli Mariscal DO [address] [place] [place] [address] PCP - GeneralInternal Medicine12/07/20 Jere Sales MD [address] [address] ReferringGastroenterology12/05/20 Sintia Clemente DO [address] [facility] [place] [address] Internal Medicine10/16/23Team MemberRelationshipSpecialtyStart DateEnd Date Yuli Mariscal DO [address] [place] [place] [address] PCP - GeneralInternal Medicine12/07/20 Jere Sales MD [address] [address] ReferringGastroenterology12/05/20 Sintia Clemente DO [address] [facility] [place] [address] Internal Medicine10/16/23Team MemberRelationshipSpecialtyStart DateEnd Date Yuli Mariscal DO [address] [place] [place] [address] PCP - GeneralInternal Medicine12/07/20 Jere Sales MD [address] [address] ReferringGastroenterology12/05/20 Sintia Clemente DO [address] [facility] [place] [address] Internal Medicine10/16/23Team MemberRelationshipSpecialtyStart [place] [address] [place] [address] PCP - GeneralFamily Medicine12/29/23 Jere Sales MD [address] [address] ReferringGastroenterology12/05/20 Sintia Clemente DO [address] [place] [address] Internal Medicine10/16/23Team MemberRelationshipSpecialtyStart [place] [address] [place] [address] PCP - GeneralFamily Medicine12/29/23 Jere Sales MD [address] [address] ReferringGastroenterology12/05/20 Sintia Clemente DO [address] [facility] [place] [address] Internal Medicine10/16/23Team MemberRelationshipSpecialtyStart [place] [address] [place] [address] PCP - GeneralFamily Medicine12/29/23 Jere Sales MD [address] [address] ReferringGastroenterology12/05/20 Sintia Clemente DO [address] [facility] [place] [address] Internal Medicine10/16/23Team MemberRelationshipSpecialtyStart [place] [address] [place] [address] PCP - GeneralFamily Medicine12/29/23 Jere Sales MD [address] [place] [address] ReferringGastroenterology12/05/20 Sintia Clemente DO [address] [facility] [place] [address] Internal Medicine10/16/23Team MemberRelationshipSpecialtyStart [place] [address] [place] [address] PCP - GeneralFamily Medicine12/29/23 Jere Sales MD [address] [place] [address] ReferringGastroenterology12/05/20 Sintia Clemente DO [address] [facility] [place] [address] Internal Medicine10/16/23Team MemberRelationshipSpecialtyStart [place] [address] [place] [address] PCP - GeneralFamily Medicine12/29/23 Jere Sales MD [address] [place] [address] ReferringGastroenterology12/05/20 Sintia Clemente DO [address] [facility] [place] [address] Internal Medicine10/16/23Team MemberRelationshipSpecialtyStart [place] [address] [place] [address] PCP - Generalmily Medicine12/29/23 Jere Sales MD [address] [place] [address] ReferringGastroenterology12/05/20 Sintia Clemente DO [address] [facility] [place] [address] Internal Medicine10/16/23Team MemberRelationshipSpecialtyStart [place] [address] [place] [address] PCP - GeneralFamily Medicine12/29/23 Jere Sales MD [address] [place] [address] ReferringGastroenterology12/05/20 Sintia Clemente DO [address] [facility] [place] [address] Internal Medicine10/16/23Team MemberRelationshipSpecialtyStart [place] [address] [place], [place] [address] PCP - GeneralFamily Medicine12/29/23 Jere Sales MD [address] [address] ReferringGastroenterology12/05/20 Sintia Clemente DO [address] [facility] [place] [address] Internal Medicine10/16/23Team MemberRelationshipSpecialtyStart [place] [address] [place] [address] PCP - GeneralFamily Medicine12/29/23 Jere Sales MD [address] [address] ReferringGastroenterology12/05/20 Sintia Clemente DO [address] [facility] [place] [address] Internal Medicine10/16/23Team MemberRelationshipSpecialtyStart [place] [address] [place] [address] PCP - GeneralFamily Medicine12/29/23 Jere Sales MD [address] [place] [address] ReferringGastroenterology12/05/20 Sintia Clemente DO [address] [facility] [place] [address] Internal Medicine10/16/23Team MemberRelationshipSpecialtyStart [place] [address] [place] [address] PCP - GeneralFamily Medicine12/29/23 Jere Sales MD [address] [place] [address] ReferringGastroenterology12/05/20 Sintia Clemente DO [address] [facility] [place] [address] Internal Medicine10/16/23Team MemberRelationshipSpecialtyStart [place] [address] [place] [address] PCP - GeneralFamily Medicine12/29/23 Jere Sales MD [address] [place] [address] ReferringGastroenterology12/05/20 Sintia Clemente DO [address] [facility] [place] [address] Internal Medicine10/16/23Team MemberRelationshipSpecialtyStart [place] [address] [place] [address] PCP - GeneralFamily Medicine12/29/23 Jere Sales MD [address] [place] [address] ReferringGastroenterology12/05/20 Sintia Clemente DO [address] [facility] [place] [address] Internal Medicine10/16/23Team MemberRelationshipSpecialtyStart [place] [address] [place] [address] PCP - GeneralFamily Medicine12/29/23 Jere Sales MD [address] [place] [address] ReferringGastroenterology12/05/20 Sintia Clemente DO [address] [facility] [place] [address] Internal Medicine10/16/23Team MemberRelationshipSpecialtyStart [place] [address] [place] [address] PCP - GeneralFamily Medicine12/29/23 Jere Sales MD [address] [place] [address] ReferringGastroenterology12/05/20 Sintia Clemente DO [address] [facility] [place] [address] Internal Medicine10/16/23Team MemberRelationshipSpecialtyStart [place] [address] [place] [address] PCP - GeneralFamily Medicine12/29/23 Jere Sales MD [address] [address] ReferringGastroenterology12/05/20 Sintia Clemente DO [address] [facility] [place] [address] Internal Medicine10/16/23Team MemberRelationshipSpecialtyStart [place] [address] [place] [address] PCP - GeneralFamily Medicine12/29/23 Jere Sales MD [address] [place] [address] ReferringGastroenterology12/05/20 Sintia Clemente DO [address] [facility] [place] [address] Internal Medicine10/16/23Team MemberRelationshipSpecialtyStart [place] [address] [place] [address] PCP - GeneralFamily Medicine12/29/23 Jere Sales MD [address] [address] ReferringGastroenterology12/05/20 Sintia Clemente DO [address] [facility] [place] [address] Internal Medicine10/16/23Team MemberRelationshipSpecialtyStart [place] [address] [place] [address] PCP - GeneralFamily Medicine12/29/23 Jere Slaes MD [address] [place] [address] ReferringGastroenterology12/05/20 Sintia Clemente DO [address] [facility] [place] [address] Internal Medicine10/16/23Team MemberRelationshipSpecialtyStart DateEnd Date Yuli Mariscal DO [address] [facility] [place] [address] PCP - GeneralInternal Medicine03/12/25Team MemberRelationshipSpecialtyStart Date End Date Yuli Mariscal DO [address] [facility] [place] [address] PCP - GeneralInternal Medicine03/12/25Team MemberRelationshipSpecialtyStart Date End Date Yuli Mariscal DO [address] [place] [facility] [place] [address] PCP - GeneralInternal Medicine03/12/25Team MemberRelationshipSpecialtyStart Date End Date Yuli Mariscal DO [address] [facility] [place] [id number] PCP - GeneralInternal Medicine03/12/25Team MemberRelationshipSpecialtyStart Date End Date Yuli Mariscal DO [address] [facility] [place] [id number] PCP - GeneralInternal Medicine03/12/25Team MemberRelationshipSpecialtyStart Date End Date Yuli Mariscal DO [address] [facility] [place] [id number] PCP - GeneralInternal Medicine03/12/25 Team Status: Active Member Role/Relationship Status Dates Yuli Mariscal DO Primary Care Provider Active Team Status: Active Member Role/Relationship Status Dates Yuli Mariscal DO Primary Care Provider Active Start: April 02, 2025 Yehuda Boggs DOAttjeri ProviderActiveStart: April 02, 2025 Team Status: Active Member Role/Relationship Status Dates Yuli Mariscal DO Primary Care Provider Active Start: April 03, 2025 Dominique Chow ProviderActiveStart: April 03, 2025 Team Status: Active Member Role/Relationship Status Dates Yuli Mariscal DO Primary Care Provider Active Start: April 04, 2025 Dominique Chow ProviderActiveStart: April 04, 2025 Team Status: Active Member Role/Relationship Status Dates Yuli Mariscal DO Primary Care Provider Active Start: April 05, 2025 Bijal Najera Natasha , MDAttending ProviderActiveStart: April 05, 2025 Team Status: Active Member Role/Relationship Status Dates Yuli Mariscal DO Primary Care Provider Active Start: April 06, 2025 Pablito Hoffman MDAttending ProviderActiveStart: April 06, 2025 Team Status: Active Member Role/Relationship Status Dates Yuli Mariscal DO Primary Care Provider Active Start: April 07, 2025 Tiffanieluann Hoffman MDAttending ProviderActiveStart: April 07, 2025 Team Status: Active Member Role/Relationship Status Dates Yuli Mariscal DO Primary Care Provider Active Start: April 08, 2025 Joselin Berman CMAAttending ProviderActiveStart: April 08, 2025 Team Status: Inactive Member Role/Relationship Status Dates Yuli Mariscal DO Primary Care Provider Active Start: April 09, 2025 End: April 09enjelly Mariscal DOAttending ProviderActiveStart: April 09, 2025 End: April 09, 2025Team MemberRelationshipSpecialtyStart DateEnd Date Yuli Mariscal DO [address] [place] [address] PCP - GeneralInternal Medicine03/12/25Team MemberRelationshipSpecialtyStart Date End Date Yuli Mariscal DO [address] [place] [address] PCP - GeneralInternal Medicine03/12/25 Team Status: Active Member Role/Relationship Status Dates Yuli Mariscal DO Primary Care Provider Active Start: April 12, 2025 Yuli Mariscal DOAttending ProviderActiveStart: April 12, 2025 Team Status: Inactive Member Role/Relationship Status Dates Yuli Mariscal DO Primary Care Provider Active Start: April 19, 2025 End: April 19nigel Mariscal DOAttending ProviderActiveStart: April 19, 2025 End: April 19, 2025 (unrecognized sect ion and content) No Status Records FoundNo Status Records FoundNo Status Records FoundNo Status Records FoundNo Status Records FoundNo Status Records FoundNo Status Records FoundNo Status Records FoundNo Status Records FoundNo Status Records Found INFORMATION SOURCE (unrecogn ized section and content) DATE CREATED AUTHOR 03/22/2022 [facility] DATE CREATED AUTHOR AUTHOR'S ORGANIZ ATION 02/16/2023 [facility] DATE CREATED AUTHOR AUTHOR'S ORGANIZ ATION 10/13/2023 [facility] DATE CREATED AUTHOR AUTHOR'S ORGANIZ ATION 03/19/2024 [facility] DATE CREATED AUTHOR AUTHOR'S ORGANIZ ATION 03/23/2024 [facility] DATE CREATED AUTHOR AUTHOR'S ORGANIZ ATION 05/02/2024 [facility] DATE CREATED AUTHOR AUTHOR'S ORGANIZ ATION 11/28/2024 [facility] DATE CREATED AUTHOR AUTHOR'S ORGANIZ ATION 03/31/2025 [facility] DATE CREATED AUTHOR AUTHOR'S ORGANIZ ATION 04/16/2025 [facility] DATE CREATED AUTHOR AUTHOR'S ORGANIZ ATION 04/18/2025 [facility] Goals (unrecognized section and content) Goals may [...] drug abuse patient.[facility] the event this information is protected by the Federal Confidentiality of Alcohol and Drug Abuse Patient Records regulations: The Federal rules restrict any use of the information to criminally investigate or prosecute any alcohol or drug abuse patient.[facility]In the event this information is protected by the Federal Confidentiality of Alcohol and Drug Abuse Patient Records regulations: The Federal rules restrict any use of the information to criminally investigate or prosecute any alcohol or drug abuse patient.[facility]In the event this information is protected by the Federal Confidentiality of Alcohol and Drug Abuse Patient Records regulations: The Federal rules restrict any use of the information to criminally investigate or prosecute any alcohol or drug abuse patient.[facility]In the event this information is protected by the Federal Confidentiality of Alcohol and Drug Abuse Patient Records regulations: The Federal rules restrict any use of the information to criminally investigate or prosecute any alcohol or drug abuse patient.[facility]In the event this information is protected by the Federal Confidentiality of Alcohol and Drug Abuse Patient Records regulations: The Federal rules restrict any use of the information to criminally investigate or prosecute any alcohol or drug abuse patient.[facility]In the event this information is protected by the Federal Confidentiality of Alcohol and Drug Abuse Patient Records regulations: The Federal rules restrict any use of the information to criminally investigate or prosecute any alcohol or drug abuse patient.[facility]In the event this information is protected by the Federal Confidentiality of Alcohol and Drug Abuse Patient Records regulations: The Federal rules restrict any use of the information to criminally investigate or prosecute any alcohol or drug abuse patient.[facility]In the event this information is protected by the Federal Confidentiality of Alcohol and Drug Abuse Patient Records regulations: The Federal rules restrict any use of the information to criminally investigate or prosecute any alcohol or drug abuse patient.[facility]In the event this information is protected by the Federal Confidentiality of Alcohol and Drug Abuse Patient Records regulations: The Federal rules restrict any use of the information to criminally investigate or prosecute any alcohol or drug abuse patient.[facility]In the event this information is protected by the Federal Confidentiality of Alcohol and Drug Abuse Patient Records regulations: The Federal rules restrict any use of the information to criminally investigate or prosecute any alcohol or drug abuse patient.[facility]hillIn the event this information is protected by the Federal Confidentiality of Alcohol and Drug Abuse Patient Records regulations: The Federal rules restrict any use of the information to criminally investigate or prosecute any alcohol or drug abuse patient.[facility]hillIn the event this information is protected by the Federal Confidentiality of Alcohol and Drug Abuse Patient Records regulations: The Federal rules restrict any use of the information to criminally investigate or prosecute any alcohol or drug abuse patient.[facility]hillIn the event this information is protected by the Federal Confidentiality of Alcohol and Drug Abuse Patient Records regulations: The Federal rules restrict any use of the information to criminally investigate or prosecute any alcohol or drug abuse patient.[facility]hillIn the event this information is protected by the Federal Confidentiality of Alcohol and Drug Abuse Patient Records regulations: The Federal rules restrict any use of the information to criminally investigate or prosecute any alcohol or drug abuse patient.[facility]In the event this information is protected by the Federal Confidentiality of Alcohol and Drug Abuse Patient Records regulations: The Federal rules restrict any use of the information to criminally investigate or prosecute any alcohol or drug abuse patient.[facility]hillIn the event this information is protected by the Federal Confidentiality of Alcohol and Drug Abuse Patient Records regulations: The Federal rules restrict any use of the information to criminally investigate or prosecute any alcohol or drug abuse patient.[facility]In the event this information is protected by the Federal Confidentiality of Alcohol and Drug Abuse Patient Records regulations: The Federal rules restrict any use of the information to criminally investigate or prosecute any alcohol or drug abuse patient.[facility]hillIn the event this information is protected by the Federal Confidentiality of Alcohol and Drug Abuse Patient Records regulations: The Federal rules restrict any use of the information to criminally investigate or prosecute any alcohol or drug abuse patient.[facility]hillIn the event this information is protected by the Federal Confidentiality of Alcohol and Drug Abuse Patient Records regulations: The Federal rules restrict any use of the information to criminally investigate or prosecute any alcohol or drug abuse patient.[facility]hillIn the event this information is protected by the Federal Confidentiality of Alcohol and Drug Abuse Patient Records regulations: The Federal rules restrict any use of the information to criminally investigate or prosecute any alcohol or drug abuse patient.[facility]hillIn the event this information is protected by the Federal Confidentiality of Alcohol and Drug Abuse Patient Records regulations: The Federal rules restrict any use of the information to criminally investigate or prosecute any alcohol or drug abuse patient.[facility]hillIn the event this information is protected by the Federal Confidentiality of Alcohol and Drug Abuse Patient Records regulations: The Federal rules restrict any use of the information to criminally investigate or prosecute any alcohol or drug abuse patient.[facility]hillIn the event this information is protected by the Federal Confidentiality of Alcohol and Drug Abuse Patient Records regulations: The Federal rules restrict any use of the information to criminally investigate or prosecute any alcohol or drug abuse patient.[facility]hillIn the event this information is protected by the Federal Confidentiality of Alcohol and Drug Abuse Patient Records regulations: The Federal rules restrict any use of the information to criminally investigate or prosecute any alcohol or drug abuse patient.[facility]hillIn the event this information is protected by the Federal Confidentiality of Alcohol and Drug Abuse Patient Records regulations: The Federal rules restrict any use of the information to criminally investigate or prosecute any alcohol or drug abuse patient.[facility]hillIn the event this information is protected by the Federal Confidentiality of Alcohol and Drug Abuse Patient Records regulations: The Federal rules restrict any use of the information to criminally investigate or prosecute any alcohol or drug abuse patient.[facility]hillIn the event this information is protected by the Federal Confidentiality of Alcohol and Drug Abuse Patient Records regulations: The Federal rules restrict any use of the information to criminally investigate or prosecute any alcohol or drug abuse patient.[facility]hillIn the event this information is protected by the Federal Confidentiality of Alcohol and Drug Abuse Patient Records regulations: The Federal rules restrict any use of the information to criminally investigate or prosecute any alcohol or drug abuse patient.[facility]hillIn the event this information is protected by the Federal Confidentiality of Alcohol and Drug Abuse Patient Records regulations: The Federal rules restrict any use of the information to criminally investigate or prosecute any alcohol or drug abuse patient.[facility]hillIn the event this information is protected by the Federal Confidentiality of Alcohol and Drug Abuse Patient Records regulations: The Federal rules restrict any use of the information to criminally investigate or prosecute any alcohol or drug abuse patient.[facility]hillIn the event this information is protected by the Federal Confidentiality of Alcohol and Drug Abuse Patient Records regulations: The Federal rules restrict any use of the information to criminally investigate or prosecute any alcohol or drug abuse patient.[facility]hillIn the event this information is protected by the Federal Confidentiality of Alcohol and Drug Abuse Patient Records regulations: The Federal rules restrict any use of the information to criminally investigate or prosecute any alcohol or drug abuse patient.[facility]hillIn the event this information is protected by the Federal Confidentiality of Alcohol and Drug Abuse Patient Records regulations: The Federal rules restrict any use of the information to criminally investigate or prosecute any alcohol or drug abuse patient.[facility]hillIn the event this information is protected by the Federal Confidentiality of Alcohol and Drug Abuse Patient Records regulations: The Federal rules restrict any use of the information to criminally investigate or prosecute any alcohol or drug abuse patient.[facility]hillIn the event this information is protected by the Federal Confidentiality of Alcohol and Drug Abuse Patient Records regulations: The Federal rules restrict any use of the information to criminally investigate or prosecute any alcohol or drug abuse patient.[facility]hillIn the event this information is protected by the Federal Confidentiality of Alcohol and Drug Abuse Patient Records regulations: The Federal rules restrict any use of the information to criminally investigate or prosecute any alcohol or drug abuse patient.[facility]hillIn the event this information is protected by the Federal Confidentiality of Alcohol and Drug Abuse Patient Records regulations: The Federal rules restrict any use of the information to criminally investigate or prosecute any alcohol or drug abuse patient.[facility]hillIn the event this information is protected by the Federal Confidentiality of Alcohol and Drug Abuse Patient Records regulations: The Federal rules restrict any use of the information to criminally investigate or prosecute any alcohol or drug abuse patient.[facility]hillIn the event this information is protected by the Federal Confidentiality of Alcohol and Drug Abuse Patient Records regulations: The Federal rules restrict any use of the information to criminally investigate or prosecute any alcohol or drug abuse patient.[facility]hillIn the event this information is protected by the Federal Confidentiality of Alcohol and Drug Abuse Patient Records regulations: The Federal rules restrict any use of the information to criminally investigate or prosecute any alcohol or drug abuse patient.[facility]hillIn the event this information is protected by the Federal Confidentiality of Alcohol and Drug Abuse Patient Records regulations: The Federal rules restrict any use of the information to criminally investigate or prosecute any alcohol or drug abuse patient.[facility]hillIn the event this information is protected by the Federal Confidentiality of Alcohol and Drug Abuse Patient Records regulations: The Federal rules restrict any use of the information to criminally investigate or prosecute any alcohol or drug abuse patient.[facility]hillIn the event this information is protected by the Federal Confidentiality of Alcohol and Drug Abuse Patient Records regulations: The Federal rules restrict any use of the information to criminally investigate or prosecute any alcohol or drug abuse patient.[facility]hillIn the event this information is protected by the Federal Confidentiality of Alcohol and Drug Abuse Patient Records regulations: The Federal rules restrict any use of the information to criminally investigate or prosecute any alcohol or drug abuse patient.[facility]hillIn the event this information is protected by the Federal Confidentiality of Alcohol and Drug Abuse Patient Records regulations: The Federal rules restrict any use of the information to criminally investigate or prosecute any alcohol or drug abuse patient.[facility]hillIn the event this information is protected by the Federal Confidentiality of Alcohol and Drug Abuse Patient Records regulations: The Federal rules restrict any use of the information to criminally investigate or prosecute any alcohol or drug abuse patient.[facility]hillIn the event this information is protected by the Federal Confidentiality of Alcohol and Drug Abuse Patient Records regulations: The Federal rules restrict any use of the information to criminally investigate or prosecute any alcohol or drug abuse patient.[facility]hillIn the event this information is protected by the Federal Confidentiality of Alcohol and Drug Abuse Patient Records regulations: The Federal rules restrict any use of the information to criminally investigate or prosecute any alcohol or drug abuse patient.[facility]hillIn the event this information is protected by the Federal Confidentiality of Alcohol and Drug Abuse Patient Records regulations: The Federal rules restrict any use of the information to criminally investigate or prosecute any alcohol or drug abuse patient.[facility]hillIn the event this information is protected by the Federal Confidentiality of Alcohol and Drug Abuse Patient Records regulations: The Federal rules restrict any use of the information to criminally investigate or prosecute any alcohol or drug abuse patient.[facility]hillIn the event this information is protected by the Federal Confidentiality of Alcohol and Drug Abuse Patient Records regulations: The Federal rules restrict any use of the information to criminally investigate or prosecute any alcohol or drug abuse patient.[facility]hillIn the event this information is protected by the Federal Confidentiality of Alcohol and Drug Abuse Patient Records regulations: The Federal rules restrict any use of the information to criminally investigate or prosecute any alcohol or drug abuse patient.[facility]hillIn the event this information is protected by the Federal Confidentiality of Alcohol and Drug Abuse Patient Records regulations: The Federal rules restrict any use of the information to criminally investigate or prosecute any alcohol or drug abuse patient.[facility]hillIn the event this information is protected by the Federal Confidentiality of Alcohol and Drug Abuse Patient Records regulations: The Federal rules restrict any use of the information to criminally investigate or prosecute any alcohol or drug abuse patient.[facility]hillIn the event this information is protected by the Federal Confidentiality of Alcohol and Drug Abuse Patient Records regulations: The Federal rules restrict any use of the information to criminally investigate or prosecute any alcohol or drug abuse patient.[facility]hillIn the event this information is protected by the Federal Confidentiality of Alcohol and Drug Abuse Patient Records regulations: The Federal rules restrict any use of the information to criminally investigate or prosecute any alcohol or drug abuse patient.[facility]hillIn the event this information is protected by the Federal Confidentiality of Alcohol and Drug Abuse Patient Records regulations: The Federal rules restrict any use of the information to criminally investigate or prosecute any alcohol or drug abuse patient.[facility]hillIn the event this information is protected by the Federal Confidentiality of Alcohol and Drug Abuse Patient Records regulations: The Federal rules restrict any use of the information to criminally investigate or prosecute any alcohol or drug abuse patient.[facility]hillIn the event this information is protected by the Federal Confidentiality of Alcohol and Drug Abuse Patient Records regulations: The Federal rules restrict any use of the information to criminally investigate or prosecute any alcohol or drug abuse patient.[facility]hillIn the event this information is protected by the Federal Confidentiality of Alcohol and Drug Abuse Patient Records regulations: The Federal rules restrict any use of the information to criminally investigate or prosecute any alcohol or drug abuse patient.[facility]hillIn the event this information is protected by the Federal Confidentiality of Alcohol and Drug Abuse Patient Records regulations: The Federal rules restrict any use of the information to criminally investigate or prosecute any alcohol or drug abuse patient.[facility]hillIn the event this information is protected by the Federal Confidentiality of Alcohol and Drug Abuse Patient Records regulations: The Federal rules restrict any use of the information to criminally investigate or prosecute any alcohol or drug abuse patient.[facility]hillIn the event this information is protected by the Federal Confidentiality of Alcohol and Drug Abuse Patient Records regulations: The Federal rules restrict any use of the information to criminally investigate or prosecute any alcohol or drug abuse patient.[facility]hillIn the event this information is protected by the Federal Confidentiality of Alcohol and Drug Abuse Patient Records regulations: The Federal rules restrict any use of the information to criminally investigate or prosecute any alcohol or drug abuse patient.[facility]hillIn the event this information is protected by the Federal Confidentiality of Alcohol and Drug Abuse Patient Records regulations: The Federal rules restrict any use of the information to criminally investigate or prosecute any alcohol or drug abuse patient.[facility] the event this information is protected by the Federal Confidentiality of Alcohol and Drug Abuse Patient Records regulations: The Federal rules restrict any use of the information to criminally investigate or prosecute any alcohol or drug abuse patient.[facility] [place]In the event this information is protected by the Federal Confidentiality of Alcohol and Drug Abuse Patient Records regulations: The Federal rules restrict any use of the information to criminally investigate or prosecute any alcohol or drug abuse patient.[facility] [place]In the event this information is protected by the Federal Confidentiality of Alcohol and Drug Abuse Patient Records regulations: The Federal rules restrict any use of the information to criminally investigate or prosecute any alcohol or drug abuse patient.[facility] [place]In the event this information is protected by the Federal Confidentiality of Alcohol and Drug Abuse Patient Records regulations: The Federal rules restrict any use of the information to criminally investigate or prosecute any alcohol or drug abuse patient.[facility] [place]In the event this information is protected by the Federal Confidentiality of Alcohol and Drug Abuse Patient Records regulations: The Federal rules restrict any use of the information to criminally investigate or prosecute any alcohol or drug abuse patient.[facility] [place]In the event this information is protected by the Federal Confidentiality of Alcohol and Drug Abuse Patient Records regulations: The Federal rules restrict any use of the information to criminally investigate or prosecute any alcohol or drug abuse patient.[facility] [place]In the event this information is protected by the Federal Confidentiality of Alcohol and Drug Abuse Patient Records regulations: The Federal rules restrict any use of the information to criminally investigate or prosecute any alcohol or drug abuse patient.[facility] [place]In the event this information is protected by the Federal Confidentiality of Alcohol and Drug Abuse Patient Records regulations: The Federal rules restrict any use of the information to criminally investigate or prosecute any alcohol or drug abuse patient.[facility] [place]In the event this information is protected by the Federal Confidentiality of Alcohol and Drug Abuse Patient Records regulations: The Federal rules restrict any use of the information to criminally investigate or prosecute any alcohol or drug abuse patient.[facility] [place]In the event this information is protected by the Federal Confidentiality of Alcohol and Drug Abuse Patient Records regulations: The Federal rules restrict any use of the information to criminally investigate or prosecute any alcohol or drug abuse patient.[facility] [place]In the event this information is protected by the Federal Confidentiality of Alcohol and Drug Abuse Patient Records regulations: The Federal rules restrict any use of the information to criminally investigate or prosecute any alcohol or drug abuse patient.[facility] [place]In the event this information is protected by the Federal Confidentiality of Alcohol and Drug Abuse Patient Records regulations: The Federal rules restrict any use of the information to criminally investigate or prosecute any alcohol or drug abuse patient.[facility] [place]In the event this information is protected by the Federal Confidentiality of Alcohol and Drug Abuse Patient Records regulations: The Federal rules restrict any use of the information to criminally investigate or prosecute any alcohol or drug abuse patient.[facility] [place]In the event this information is protected by the Federal Confidentiality of Alcohol and Drug Abuse Patient Records regulations: The Federal rules restrict any use of the information to criminally investigate or prosecute any alcohol or drug abuse patient.[facility] [place]In the event this information is protected by the Federal Confidentiality of Alcohol and Drug Abuse Patient Records regulations: The Federal rules restrict any use of the information to criminally investigate or prosecute any alcohol or drug abuse patient.[facility] [place]In the event this information is protected by the Federal Confidentiality of Alcohol and Drug Abuse Patient Records regulations: The Federal rules restrict any use of the information to criminally investigate or prosecute any alcohol or drug abuse patient.[facility] [place]In the event this information is protected by the Federal Confidentiality of Alcohol and Drug Abuse Patient Records regulations: The Federal rules restrict any use of the information to criminally investigate or prosecute any alcohol or drug abuse patient.[facility] [place]In the event this information is protected by the Federal Confidentiality of Alcohol and Drug Abuse Patient Records regulations: The Federal rules restrict any use of the information to criminally investigate or prosecute any alcohol or drug abuse patient.[facility] [place]In the event this information is protected by the Federal Confidentiality of Alcohol and Drug Abuse Patient Records regulations: The Federal rules restrict any use of the information to criminally investigate or prosecute any alcohol or drug abuse patient.[facility] [place]In the event this information is protected by the Federal Confidentiality of Alcohol and Drug Abuse Patient Records regulations: The Federal rules restrict any use of the information to criminally investigate or prosecute any alcohol or drug abuse patient.[facility] [place]In the event this information is protected by the Federal Confidentiality of Alcohol and Drug Abuse Patient Records regulations: The Federal rules restrict any use of the information to criminally investigate or prosecute any alcohol or drug abuse patient.[facility] [place]In the event this information is protected by the Federal Confidentiality of Alcohol and Drug Abuse Patient Records regulations: The Federal rules restrict any use of the information to criminally investigate or prosecute any alcohol or drug abuse patient.[facility] [place]In the event this information is protected by the Federal Confidentiality of Alcohol and Drug Abuse Patient Records regulations: The Federal rules restrict any use of the information to criminally investigate or prosecute any alcohol or drug abuse patient.[facility] [place]In the event this information is protected by the Federal Confidentiality of Alcohol and Drug Abuse Patient Records regulations: The Federal rules restrict any use of the information to criminally investigate or prosecute any alcohol or drug abuse patient.[facility] [place]In the event this information is protected by the Federal Confidentiality of Alcohol and Drug Abuse Patient Records regulations: The Federal rules restrict any use of the information to criminally investigate or prosecute any alcohol or drug abuse patient.[facility] [place]In the event this information is protected by the Federal Confidentiality of Alcohol and Drug Abuse Patient Records regulations: The Federal rules restrict any use of the information to criminally investigate or prosecute any alcohol or drug abuse patient.[facility] [place]In the event this information is protected by the Federal Confidentiality of Alcohol and Drug Abuse Patient Records regulations: The Federal rules restrict any use of the information to criminally investigate or prosecute any alcohol or drug abuse patient.[facility] [place]In the event this information is protected by the Federal Confidentiality of Alcohol and Drug Abuse Patient Records regulations: The Federal rules restrict any use of the information to criminally investigate or prosecute any alcohol or drug abuse patient.[facility] [place]In the event this information is protected by the Federal Confidentiality of Alcohol and Drug Abuse Patient Records regulations: The Federal rules restrict any use of the information to criminally investigate or prosecute any alcohol or drug abuse patient.[facility] [place]In the event this information is protected by the Federal Confidentiality of Alcohol and Drug Abuse Patient Records regulations: The Federal rules restrict any use of the information to criminally investigate or prosecute any alcohol or drug abuse patient.[facility] [place]In the event this information is protected by the Federal Confidentiality of Alcohol and Drug Abuse Patient Records regulations: The Federal rules restrict any use of the information to criminally investigate or prosecute any alcohol or drug abuse patient.[facility] [place]In the event this information is protected by the Federal Confidentiality of Alcohol and Drug Abuse Patient Records regulations: The Federal rules restrict any use of the information to criminally investigate or prosecute any alcohol or drug abuse patient.[facility] [place]In the event this information is protected by the Federal Confidentiality of Alcohol and Drug Abuse Patient Records regulations: The Federal rules restrict any use of the information to criminally investigate or prosecute any alcohol or drug abuse patient.[facility] [place]In the event this information is protected by the Federal Confidentiality of Alcohol and Drug Abuse Patient Records regulations: The Federal rules restrict any use of the information to criminally investigate or prosecute any alcohol or drug abuse patient.[facility] [place]In the event this information is protected by the Federal Confidentiality of Alcohol and Drug Abuse Patient Records regulations: The Federal rules restrict any use of the information to criminally investigate or prosecute any alcohol or drug abuse patient.[facility] [place]In the event this information is protected by the Federal Confidentiality of Alcohol and Drug Abuse Patient Records regulations: The Federal rules restrict any use of the information to criminally investigate or prosecute any alcohol or drug abuse patient.[facility] [place]In the event this information is protected by the Federal Confidentiality of Alcohol and Drug Abuse Patient Records regulations: The Federal rules restrict any use of the information to criminally investigate or prosecute any alcohol or drug abuse patient.[facility] [place]In the event this information is protected by the Federal Confidentiality of Alcohol and Drug Abuse Patient Records regulations: The Federal rules restrict any use of the information to criminally investigate or prosecute any alcohol or drug abuse patient.[facility] [place]In the event this information is protected by the Federal Confidentiality of Alcohol and Drug Abuse Patient Records regulations: The Federal rules restrict any use of the information to criminally investigate or prosecute any alcohol or drug abuse patient.[facility] [place]In the event this information is protected by the Federal Confidentiality of Alcohol and Drug Abuse Patient Records regulations: The Federal rules restrict any use of the information to criminally investigate or prosecute any alcohol or drug abuse patient.[facility] [place]In the event this information is protected by the Federal Confidentiality of Alcohol and Drug Abuse Patient Records regulations: The Federal rules restrict any use of the information to criminally investigate or prosecute any alcohol or drug abuse patient.[facility] [place]In the event this information is protected by the Federal Confidentiality of Alcohol and Drug Abuse Patient Records regulations: The Federal rules restrict any use of the information to criminally investigate or prosecute any alcohol or drug abuse patient.[facility] [place]In the event this information is protected by the Federal Confidentiality of Alcohol and Drug Abuse Patient Records regulations: The Federal rules restrict any use of the information to criminally investigate or prosecute any alcohol or drug abuse patient.[facility] [place]In the event this information is protected by the Federal Confidentiality of Alcohol and Drug Abuse Patient Records regulations: The Federal rules restrict any use of the information to criminally investigate or prosecute any alcohol or drug abuse patient.[facility] [place]In the event this information is protected by the Federal Confidentiality of Alcohol and Drug Abuse Patient Records regulations: The Federal rules restrict any use of the information to criminally investigate or prosecute any alcohol or drug abuse patient.[facility] [place]In the event this information is protected by the Federal Confidentiality of Alcohol and Drug Abuse Patient Records regulations: The Federal rules restrict any use of the information to criminally investigate or prosecute any alcohol or drug abuse patient.[facility] [place]In the event this information is protected by the Federal Confidentiality of Alcohol and Drug Abuse Patient Records regulations: The Federal rules restrict any use of the information to criminally investigate or prosecute any alcohol or drug abuse patient.[facility] [place]In the event this information is protected by the Federal Confidentiality of Alcohol and Drug Abuse Patient Records regulations: The Federal rules restrict any use of the information to criminally investigate or prosecute any alcohol or drug abuse patient.[facility] [place]In the event this information is protected by the Federal Confidentiality of Alcohol and Drug Abuse Patient Records regulations: The Federal rules restrict any use of the information to criminally investigate or prosecute any alcohol or drug abuse patient.[facility] [place]In the event this information is protected by the Federal Confidentiality of Alcohol and Drug Abuse Patient Records regulations: The Federal rules restrict any use of the information to criminally investigate or prosecute any alcohol or drug abuse patient.[facility] [place]In the event this information is protected by the Federal Confidentiality of Alcohol and Drug Abuse Patient Records regulations: The Federal rules restrict any use of the information to criminally investigate or prosecute any alcohol or drug abuse patient.[facility] [place]In the event this information is protected by the Federal Confidentiality of Alcohol and Drug Abuse Patient Records regulations: The Federal rules restrict any use of the information to criminally investigate or prosecute any alcohol or drug abuse patient.[facility] [place]In the event this information is protected by the Federal Confidentiality of Alcohol and Drug Abuse Patient Records regulations: The Federal rules restrict any use of the information to criminally investigate or prosecute any alcohol or drug abuse patient.[facility] [place]In the event this information is protected by the Federal Confidentiality of Alcohol and Drug Abuse Patient Records regulations: The Federal rules restrict any use of the information to criminally investigate or prosecute any alcohol or drug abuse patient.[facility] [place]In the event this information is protected by the Federal Confidentiality of Alcohol and Drug Abuse Patient Records regulations: The Federal rules restrict any use of the information to criminally investigate or prosecute any alcohol or drug abuse patient.[facility] [place]In the event this information is protected by the Federal Confidentiality of Alcohol and Drug Abuse Patient Records regulations: The Federal rules restrict any use of the information to criminally investigate or prosecute any alcohol or drug abuse patient.[facility] [place]In the event this information is protected by the Federal Confidentiality of Alcohol and Drug Abuse Patient Records regulations: The Federal rules restrict any use of the information to criminally investigate or prosecute any alcohol or drug abuse patient.[facility] [place]In the event this information is protected by the Federal Confidentiality of Alcohol and Drug Abuse Patient Records regulations: The Federal rules restrict any use of the information to criminally investigate or prosecute any alcohol or drug abuse patient.[facility] [place]In the event this information is protected by the Federal Confidentiality of Alcohol and Drug Abuse Patient Records regulations: The Federal rules restrict any use of the information to criminally investigate or prosecute any alcohol or drug abuse patient.[facility] [place]In the event this information is protected by the Federal Confidentiality of Alcohol and Drug Abuse Patient Records regulations: The Federal rules restrict any use of the information to criminally investigate or prosecute any alcohol or drug abuse patient.[facility] [place]In the event this information is protected by the Federal Confidentiality of Alcohol and Drug Abuse Patient Records regulations: The Federal rules restrict any use of the information to criminally investigate or prosecute any alcohol or drug abuse patient.[facility] [place]In the event this information is protected by the Federal Confidentiality of Alcohol and Drug Abuse Patient Records regulations: The Federal rules restrict any use of the information to criminally investigate or prosecute any alcohol or drug abuse patient.[facility] [place]In the event this information is protected by the Federal Confidentiality of Alcohol and Drug Abuse Patient Records regulations: The Federal rules restrict any use of the information to criminally investigate or prosecute any alcohol or drug abuse patient.[facility] [place]In the event this information is protected by the Federal Confidentiality of Alcohol and Drug Abuse Patient Records regulations: The Federal rules restrict any use of the information to criminally investigate or prosecute any alcohol or drug abuse patient.[facility] [place]In the event this information is protected by the Federal Confidentiality of Alcohol and Drug Abuse Patient Records regulations: The Federal rules restrict any use of the information to criminally investigate or prosecute any alcohol or drug abuse patient.[facility] [place]In the event this information is protected by the Federal Confidentiality of Alcohol and Drug Abuse Patient Records regulations: The Federal rules restrict any use of the information to criminally investigate or prosecute any alcohol or drug abuse patient.[facility] [place]In the event this information is protected by the Federal Confidentiality of Alcohol and Drug Abuse Patient Records regulations: The Federal rules restrict any use of the information to criminally investigate or prosecute any alcohol or drug abuse patient.[facility] [place]In the event this information is protected by the Federal Confidentiality of Alcohol and Drug Abuse Patient Records regulations: The Federal rules restrict any use of the information to criminally investigate or prosecute any alcohol or drug abuse patient.[facility] [place]In the event this information is protected by the Federal Confidentiality of Alcohol and Drug Abuse Patient Records regulations: The Federal rules restrict any use of the information to criminally investigate or prosecute any alcohol or drug abuse patient.[facility] [place]In the event this information is protected by the Federal Confidentiality of Alcohol and Drug Abuse Patient Records regulations: The Federal rules restrict any use of the information to criminally investigate or prosecute any alcohol or drug abuse patient.[facility] [place]In the event this information is protected by the Federal Confidentiality of Alcohol and Drug Abuse Patient Records regulations: The Federal rules restrict any use of the information to criminally investigate or prosecute any alcohol or drug abuse patient.[facility] [place]In the event this information is protected by the Federal Confidentiality of Alcohol and Drug Abuse Patient Records regulations: The Federal rules restrict any use of the information to criminally investigate or prosecute any alcohol or drug abuse patient.[facility] [place]In the event this information is protected by the Federal Confidentiality of Alcohol and Drug Abuse Patient Records regulations: The Federal rules restrict any use of the information to criminally investigate or prosecute any alcohol or drug abuse patient.[facility] [place] FOR RECORDS PERTAINING TO PATIENTS WHO ARE [...] BE BASED ON THE PRIMARY CLINICAL RECORDS. [facility]. provides no warranty or guarantee of the accuracy or completeness of information in this document.
[2025-04-26 13:47] LABS: Anion Gap 12.4; Blood Urea Nitrogen 33.0 mg/dL (7.0-18.0); Calcium 9.0 mg/dL (8.5-10.1); Carbon Dioxide 27.8 mmol/L (21.0-32.0); Chloride 103 mmol/L (98-107); Estimated GFR (African America 52 (>=60 mL/min/1.73m^2); Estimated GFR (Non-African Ame 43 (>=60 mL/min/1.73m^2); Glucose 126 mg/dL (74-106); Magnesium 2.2 mg/dL (1.8-2.4); Potassium 4.2 mmol/L (3.5-5.1); Sodium 139 mmol/L (136-145)
== END 2025-04-26 11:45 | disposition home or self-care (01) ==
LOC: LAB 11:46
PROVIDERS: PCP Internal Medicine; Visit Provider Internal Medicine
DX: N18.31 Chronic kidney disease, stage 3a (principal); E83.42 Hypomagnesemia
CPT/HCPCS: 36415; 80048; 83735

== ENCOUNTER 2025-05-07 11:28 | Outpatient (OUT) | payer MEDICARE, SELFPAY ==
--- OUTSIDE RECORDS SUMMARY | 2024-01-08 04:30 | XMS_ITS ---
Author Organization [facility] in [place] Address [address] [place] [address] Care Team Providers Care Electronic System Engineer Name Role Phone Dawit Lorenz DO Primary Care Provider Calin Espino [phone] REASON FOR VISIT 3MO-PLEURAL EFFUSION Encounters Encounter Location Date Provider Diagnosis Pulmonary Medicine [place] [address] [place] [address] 01/08/2024 Calin Gotti Plan Of Treatment No Information Progress Notes * Bryan HARRIS EDOB:[birth year] (75 yo M)Acc No.[id number]:01/08/2024 UNLOCKED PROGRESS NOTE Follow Up Patient: Reinaldo DUNLAP Bryan Cantu :?Calin Gotti DODOB:1950???Age:73 Y ???Sex:MaleDate:4Phone:[phone]:[address], [id number]:Dawit Lorenz DO Subjective: * Chief Complaints: * 1 . 3MO-PLEURAL EFFUSION. * Medical History: Objective: * Vitals: Assessment: Plan: * Treatment: * * Electronic signature of Calin Gotti DO on 05/07/2025 at 11:32 AM ESTSign off status: PendingVisit Status:?R/S (Rescheduled) * Provider: Shahzad Gotti DO Date: 0 01/08/2024 Generated for Printing/Faxing/eTransmitting on:?05/07/2025 11:32 AM EST
--- OUTSIDE RECORDS SUMMARY | 2025-04-27 13:45 | XMS_ITS | Encounter Summary ---
Author Organization [facility] Address [address] [facility] [place] [address] Care Team Providers Care Medical Secretary Name Role Phone Dawit Lorenz DO Primary Care Provider [phone] Reason for Visit * ReasonCommentsWound Sandra Harris is a 75 y.o. male who presents for wound fuv of the left 2nd. Patient relates daily mupirocin ointment and band- aid. Patient is wearing regular tennis shoe at this time. Stopped wearingsurgical shoe 1 week ago, relates swelling has gone down. Patient has completed Augmentin and Doxycycline at this time. Encounter Details DateTypeDepartmentCare Team (Latest Contact Info)Kxbscgwzpnz14/11/2025 1:45 PM ESTOffice Visit [facility] [address] [place] [phone] Uzair Lubin, DPM [address] [place] [address] 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, stage 2 (CMS-HCC) (Primary Dx); Cellulitis of left foot; Pain in toe of left foot; Difficulty walking Social History Tobacco UseTypesPacks/DayYears UsedDateSmoking Tobacco: NeverSmokeless Tobacco: NeverSex and Gender InformationValueDate RecordedSex Assigned at BirthNot on fileLegal AwoTsah3508/29/2022 7:25 PM EDTGender IdentityNot on fileSexual OrientationNot on filedocumented as of this encounter Last Filed Vital Signs Vital SignReadingTime TakenCommentsBlood Pressure--Pulse--Temperature-- Respiratory Rate--Oxygen Saturation--Inhaled Oxygen Concentration--Nrakvr95.8 kg (187 lb)04/27/2025 2:01 PM JJIWlyowl409.9 cm (6')04/27/2025 2:01 PM ESTBody Mass Index25.36106/27/2024 2:01 PM ESTdocumented in this encounter Patient Instructions * Patient Instructions* Uzair Lubin DPM - 04/27/2025 1:45 PM EST As noted documented in this encounter Progress Notes * Uzair Lubin DPM - 04/27/2025 1:45 PM EST Images from the original note were not included. Subjective Patient ID: Willie Harris is a 75 y.o. male who presents for Wound FUV (Willie Harris is a 75 y.o. male who presents for wound fuv of the left 2nd. Patient relates daily mupirocin ointment and band- aid. Patient is wearing regular tennis shoe at this time. Stopped wearing surgical shoe 1 week ago, relates swelling has gone down. Patient has completed Augmentin and Doxycycline at this time. ). HPI Follow-up assessment: Ulceration 2nd digit left foot with cellulitis by history. Accompanied by his spouse, Eden. Both indicate effective resolution of localized redness and swelling. There has been no daily drainage over the past week or so. Denies streaking or constitutional symptoms. Crest pad therapy appears helpful and beneficial in providing pressure relief. Wound Check Medications Current Outpatient Medications: allopurinol [...] PO, Take by mouth, Disp: , Rfl: cephalexin (Keflex) 500 MG capsule, Three times daily, Disp: , Rfl: Dextromethorphan-guaiFENesin (MUCINEX DM PO), Take by mouth, Disp: , Rfl: doxycycline (Adoxa) 100 MG tablet, Take 100 mg by mouth in the morning and 100 mg before bedtime., Disp: , Rfl: famotidine (Pepcid) 20 MG [...] General assessment: Alert and oriented. Pleasant disposition. Wearing Skechers slip-on footwear. Accompanied by his spouse, [...] Relative sparing 3rd digit right foot: Toenail dystrophy and clinical mycosis. Ulceration: 2nd digit left foot: Stable Major stage 0 wound; maintaining favorable secondary intention closure. Unremarkable for bleeding or drainage. Minimally raised dried eschar and keratotic tissue. Unremarkable for erythema, warmth, swelling, soft tissue [...] changes of the 1st MTP joint. Assessment/Plan Stable Major stage 0 wound 2nd digit left foot. Effectively resolved localized cellulitis; lymphangitis left lower extremity. Plan: Review of clinical findings, favorable progress to date, treatment strategy and objectives. Continue daily care measures 2nd digit left foot: Cleansing followed by mupirocin 2%. Clean white sock will serve as appropriate dressing. Offloading: Custom fabricated crest pad. Follow up: 10-12 weeks, sooner if any problems arise. Procedure: This note was created with the [...] Plan of Treatment DateTypeDepartmentCare Team (Latest Contact Info)Fdklddvruja20/19/2026 1:15 PM ESTOffice Visit [facility] [address] [place] [phone] Uzair Lubin DPM [address] [place] [address] 08/16/2025 1:30 PM ESTOffice Visit [facility] [address] [place] [address] Arley Hamilton DO [address] [place] [address] 08/31/2025 1:05 PM EDTOffice Visit [facility] [address] [place] [address] Bianca Bynum MD [address] [place] [address] documented as of this encounter Visit Diagnoses Diagnosis 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, stage 2 ([facility]-HCC)- Primary Cellulitis of left foot Pain in toe of left foot Pain in soft tissues of limb Difficulty walking Difficulty in walking documented in this encounter Care Teams Team MemberRelationshipSpecialtyStart DateEnd Date Dawit Lorenz, DO [address] [facility] [place] [phone] PCP - GeneralInternal Medicine03/12/25documented as of this encounter
--- OUTSIDE RECORDS SUMMARY | 2025-04-29 09:43 | XMS_ITS | Encounter Summary ---
Author Organization [facility] Address [facility] [place] [address] Care Team Providers Care Bilingual Branch Manager Name Role Phone Jere Sales MD Unavailable [phone] Calin Gotti DO Unavailable Jose Antonio Meyers MD Primary Care Provider [phone] Dawit Lorenz DO Unavailable [phone] Source Comments In the event this information is protected by the Federal Confidentiality of Alcohol and Drug AbusePatient Records regulations: The Federal rules restrict any use of the information to criminally investigate or prosecute any alcohol or drug abuse patient.[facility] Reason for Referral * Outpatient Procedure (Routine) - ClosedSpecialtyDiagnoses / ProceduresReferred By ContactReferred To [facility] Diagnoses Esophageal dysphagia Esophageal dysmotility Procedures EGD - THERAPEUTIC, EUS, OR TUBE INTERVENTIONS EGD BAND LIGATION ESOPHGEAL/GASTRIC VARICES Sue Terrell MD [address] [place] [address] Phone: tel: fax: [facility] [address] [place], [place] [phone] Referral IDStatusSairaasonMount Vernon DateExpiration DateVisits RequestedVisits [id number] Auto-Generated Referral Reason for Visit * Outpatient Procedure (Routine) - ClosedSpecialtyDiagnoses / ProceduresReferred By ContactReferred To [facility] [place] Diagnoses Esophageal dysphagia Esophageal dysmotility Procedures EGD - THERAPEUTIC, EUS, OR TUBE INTERVENTIONS EGD BAND LIGATION [place]OP[place]GEAL[place] [address] [place] [address] Phone: tel: fax: [facility] [address] [place] [address] Referral IDStatusReasonMount Vernon DateExpiration DateVisits RequestedVisits [id number] Auto-Generated Referral Encounter Details DateTypeDepartmentCare Team (Latest Contact Info)Gzegfgnvnkf87/13/2025 9:43 AM EST - 04/29/2025 11:59 PM ESTHospital Encounter Gastroenterology [address] [address] Patrice Frost MD [address] [place] [address] Esophageal dysphagia [R13.19] Discharge Disposition: Home Social History Tobacco UseTypesPacks/DayYears [...] RecordedNational Score (1-100), lower number is lower lxon855412/11/2023State Score (1-10), lower number is lower gqpm009ata from: https://www.neighborhoodatlas.medicine.[facility].edu/. Last address used for verhxuklrwj[address]12/11/2023Sex and Gender InformationValueDate Recorded Sex Assigned at DixbkWnux28/24/2025 12:44 PM EDTLegal QnvBhhv6512/05/2020 12:24 PM EDTGender QimhlawvIxmt95/24/2025 12:44 PM EDTSexual OrientationNot on file documented as of this encounter Last Filed Vital Signs Vital SignReadingTime TakenCommentsBlood Jbfrmlqu049/7211 12:00 PM EST Ojsxp531604/29/2025 12:00 PM NMRSfgvxfnlacd34 ??C (96.8 ??F)04/29/2025 11:48 AM ESTRespiratory Estq713706/29/2024 12:00 PM ESTOxygen Yrutwtgyty10%04/29/2025 12:00 PM ESTInhaled Oxygen Concentration--Huzzsl52.2 kg (190 lb)04/29/2025 10:36 AM ATOXribqs363.9 cm (6')04/29/2025 10:36 AM ESTBody Mass Index25.7704/29/2025 10:36 AM ESTdocumented in this encounter Functional Status * Are you deaf or do you have serious difficulty hearing?AnswerDate of MdvpezqnojXfkzlzMd89/11/2024 4:30 PM Sheri Guo RN * Are you blind or do you have serious difficulty seeing, even when wearing glasses?AnswerDate of AmltcvprbnVkfvpoPs56/11/2024 4:30 PM Sheri Guo RN * Do you have serious difficulty walking or climbing stairs?AnswerDate of NngvxehfczDjdjvaDl18/11/2024 4:30 PM Sheri Guo RN * Do you have difficulty dressing or bathing?AnswerDate of AssessmentAuthorNo 12/26/2023 4:30 PM Sheri Guo RN * Because of a physical, mental, or emotional condition, do you have difficulty doing errands alone such as visiting a doctor's office or shopping?AnswerDate of YfvhqryqiiHjqqecGb70/11/2024 4:30 PM Sheri Guo RN documented as of this encounter Mental Status * Because of a physical, mental, or emotional condition, do you have serious difficulty concentrating, remembering, or making decisions?AnswerEntry Date LheswpOw84/11/2024 4:30 PM Sheri Guo RN documented in [...] two times a day. 180 capsule 01/26/2025 atorvastatin (LIPITOR) 10 mg tablet Take [...] 10 mg by mouth once daily. calcium ctx-ygd-G9-Zn-copy clerk-kian 250 mg-40 mg- 125 unit-3.75mg tab Take by mouth. allopurinol (ZYLOPRIM) 300 mg tablet Take 300 mg by mouth once daily.1documented as of this encounter H&P Notes * Faith Chan MD - 04/29/2025 11:00 AM EST HISTORY AND PHYSICAL Bryan Harris, 75 year old male Current history and physical on file: No Is a new History and Physical required for today's visit? Yes Indication for procedure: Other varices PROCEDURE(S) SCHEDULED FOR: EGD (Esophagogastroduodenoscopy) with or without biopsies, removal of polyps or lesions, dilation (any means), treatment of bleeding ( any means), [...] Yes Neck: full range of motion- Yes No increased WOB. Cardiac Assessment: Regular rate and rhythm Abdominal Assessment: Abdomen soft, non-tender, no masses or organomegaly. Sedation Plan: Anesthesia Additional Comments: none Faith Chan MD documented in this encounter Nursing Notes * Keli Mazariegos RN - 04/29/2025 11:49 AM EST AMBULATORY PATIENT EDUCATION NOTE TOPIC: GI PROCEDURES: Esophagogastroduodenoscopy(EGD) with or without biopies based on clinical findings, removal of polyps or lesions READINESS TO LEARN INSTRUCTION PROVIDED TO: Patient, readness to learn accessed prior to procedure, Family member, andPatient and family member COGNITIVE ABILITY: Alert and oriented PTED MOTIVATION TO LEARN: Eager FAMILY SUPPORT: Low - Inconsistent family involvement IPATIENT LEARNS BEST BY: Individual Instruction FACTORS AFFECTING LEARNING: None PHYSICAL LIMITATIONS AFFECTING LEARNING: None LEARNING RESPONSE METHOD OF INSTRUCTION: Individual instruction PATIENT / FAMILY RESPONSE: Verbalizes understanding of: WORSENING CONDITION- Signs and symptoms of aworsening condition that warrant a call to the physician FOLLOW-UP PLAN: Complete - No need for follow-up SUPPLEMENTAL MATERIAL: Procedure Discharge Instructions REFERRAL (RECOMMENDATION): None Electronically Signed By: Keli Mazariegos RN * Analia Caballero RN - 04/29/2025 10:22 AM EST PRE OP LEARNING ASSESSMENT PROCEDURE/SURGERY: GI PROCEDURES: EGD READINESS TO LEARN COGNITIVE ABILITY: Alert and oriented MOTIVATION TO LEARN: Interested FAMILY SUPPORT: High - Very involved in pt care PATIENT LEARNS BEST BY: Individual Instruction Written Instruction - Hand-outs Verbal Instruction FACTORS AFFECTING LEARNING: None PHYSICAL LIMITATIONS AFFECTING LEARNING: None Electronically Signed By: Analia Caballero RN In Department: GASTROENTEROLOGY documented in this encounter Plan of Treatment DateTypeDepartmentCare Team (Latest Contact Info)Xkohyyduqzt60/26/2025 8:25 AM ESTOffice Visit Gastroenterology [address] [address] Luis Valentine MD [address] [place] [address] Araseli Wall Mvdqtirs61/26/2025 11:45 AM ESTOffice [place] [address] [facility] [place] [place] [phone] [place] [address] [facility] [place] [address] Follow-up05/21/2025 2:00 PM ESTOffice Visit Cardiology [address] [facility] [place] [address] [place] [address] [place] [address] 6 month follow updocumented as of this encounter Goals GoalPatient Goal TypeAssociated ProblemsRecent ProgressPatient-Stated?Author Blood Pressure < 130/80 Blood Ivdtilqm966/72(04/29/2025 12:00 PM EST)Sung Mosley MD documented as of this encounter Procedures Procedure NamePriorityDate/TimeAssociated DiagnosisCommentsEGD - THERAPEUTIC, EUS, OR TUBE IFLURCGGJMIMPZcoftrw02/13/2025 11:03 AM EST Esophageal dysphagia Esophageal dysmotility documented in this encounter Results * EGD - THERAPEUTIC, EUS, OR TUBE INTERVENTIONS (04/29/2025 11:03 AM EST) Anatomical RegionLateralityModalityOtherSpecimen (Source)Anatomical Location / LateralityCollection Method / VolumeCollection TimeReceived Time04/29/2025 11:03 AM EST Narrative 04/29/2025 12:28 PM EST Q3 Patient Name: Bryan Harris Procedure Date: 04/29/2025 11:03 AM Date of : 1950 Admit Type: Outpatient Age: 75 Gender: Male Note Status: Finalized Attending MD: Patrice Caraballo MD, [id number] Procedure: ? Upper GI endoscopy Indications: ? Esophageal varices Providers: ? Patrice Caraballo MD, Faith Chan MD (Fellow) Patient Profile: ? This is a 75 year old male. Refer to note in ? patient chart for documentation of history and ? physical. Patient has symptoms. Referring Physician: ?? Sue Terrell MD (Referring MD) Medicines: ? Monitored Anesthesia Care Complications: ? No immediate complications. Requesting Provider: ?? Procedure: ? Pre-Anesthesia Assessment: ? - Prior to the procedure, a History and Physical ? was performed, and patient medications and ? allergies were reviewed. The patient is competent. ? The risks and benefits of the procedure and the ? sedation options and risks were discussed with the ? patient. All questions were answered and informed ? consent was obtained. Patient identification and ? proposed procedure were verified by the physician ? and the nurse in the pre-procedure area. Mental ? Status Examination: alert and oriented. Airway ? Examination: normal oropharyngeal airway and neck ? mobility. Respiratory Examination: clear to ? auscultation. CV Examination: normal. Prophylactic ? Antibiotics: The patient does not require ? prophylactic antibiotics. Prior Anticoagulants: The ? patient has taken no anticoagulant or antiplatelet ? agents. ASA Grade Assessment: II - A patient with ? mild systemic disease. After reviewing the risks ? and benefits, the patient was deemed in ? satisfactory condition to undergo the procedure. ? The anesthesia plan was to use monitored anesthesia ? care (MAC). Immediately prior to administration of ? medications, the patient was re-assessed for ? adequacy to receive sedatives. The heart rate, ? respiratory rate, oxygen saturations, blood ? pressure, adequacy of pulmonary ventilation, and ? response to care were monitored throughout the ? procedure. The physical status of the patient was ? re-assessed after the procedure. ? After obtaining informed consent, [...] tolerated the procedure well. Moderate Sedation: ? MAC anesthesia was administered by the anesthesia team. Findings: ? The Z-line was irregular and was found 38 cm from the incisors. ? A 2 cm hiatal hernia was present. Small (< 5 mm) varices were found in the lower third of the esophagus. ? Varices were found in the mid/proximal esophagus. ? Portal hypertensive gastropathy was found in the gastric body. ? The examined duodenum was normal. Impression: ?- Z-line irregular, 38 cm from the incisors. ? - 2 cm hiatal hernia. - Small (< 5 mm) esophageal varices. ? - Esophageal varices in mid/proximal esophagus. ? - Portal hypertensive gastropathy. ? - Normal examined duodenum. ? - No specimens collected. Estimated Blood Loss: ??Estimated blood loss: none. Recommendation: ?- Discharge patient to home. ? - Resume previous diet. ? 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 results of TJLBx, pressure measuerement and ? pathology report. Needs to be seen by hepatolofy, ? noted he is scheuled on 05/12. ? - Return to referring provider as previously ? scheduled. ? - Patient has a contact number available for ? emergencies. The signs and symptoms of potential ? delayed complications were discussed with the ? patient. Return to normal activities tomorrow. ? Written discharge instructions were provided to the ? patient. Procedure Code(s): ? --- Professional --- ? 61159 CPT copyright 2020 [employer]. All rights reserved. Attending Participation: ? I was present and participated during the entire procedure, including ? non-mittal portions. Scope In: 11:24:38 AM Scope Out: 11:30:19 AM MD Patrice Cuellar MD 04/29/2025 11:39:31 AM This report has been signed electronically by Patrice Caraballo MD Number of Addenda: 0 Note Initiated On: 04/29/2025 11:03 AM Authorizing ProviderResult TypeResult StatusMaliha Naseer MDDIGESTIVE DISEASE Final Result documented in this encounter Visit Diagnoses Diagnosis Esophageal dysphagia Dysphagia, pharyngoesophageal phase Esophageal dysmotility Dyskinesia of esophagus documented in this encounter Care Teams Team MemberRelationshipSpecialtyStart [place] [address] [facility] [place] [address] PCP - GeneralFamily Medicine12/29/23 Jere Sales MD [address] [place] [address] ReferringGastroenterology12/05/20 Calin Gotti DO [address] [place] [address] Internal Medicine10/16/23 Dawit Lorenz DO [address] [facility] [place] [address] [place] [address] Internal Cdbqrois54/31/25documented as of this encounter
--- OUTSIDE RECORDS SUMMARY | 2025-04-29 11:15 | XMS_ITS | Encounter Summary ---
Author Organization [facility] Address [address] [place] [address] Care Team Providers Care Avionics Safety Inspector Name Role Phone Jere Sales MD Unavailable [phone] Calin Gotti DO Unavailable [phone] Jose Antonio Meyers MD Primary Care Provider [phone] Dawit Lorenz DO Unavailable [phone] Source Comments In the event this information is protected by the Federal Confidentiality of Alcohol and Drug AbusePatient Records regulations: The Federal rules restrict any use of the information to criminally investigate or prosecute any alcohol or drug abuse patient.[facility] Encounter Details DateTypeDepartmentCare Team (Latest Contact Info)Gpyjovuhtyf70/13/2025 11:15 AM ESTAnesthesia Event Gastroenterology [address] [address] Gene Walker MD 0657 [place] [address] Anesthesia Record Procedure NameResponsible AnesthesiologistAnesthesia Start TimeAnesthesia Stop TimeEGD - THERAPEUTIC, EUS, OR TUBE INTERVENTIONSGene Walker MD04/29/25 62940606/29/24 6760QandPxqjOzqakXwakkuo75/13/566309581045Ji StartI have re- evaluated the patient immediately prior to induction.1116An Start Ldgw9819 Anesthesia Uuzni2865kk stop wjkg6788Wumjdew to RNI completed my handoff to the receiving nurse during which we: 1. Identified the patient 2. Identified the responsible provider 3. Reviewed the pertinent medical history 4. Discussed the surgical course 5. Reviewed intra-op anesthesia management and issues during anesthesia 6. Set expectations for post-procedure period 7. Allowed opportunity for questions and acknowledgement of understanding.1142An Stop* NameTotal lidocaine (PF) 2%80 rqackyqdpw68 mgpropofol zqqgizgn796,400 mcgondansetron (PF)4 mgdexAMETHasone 4 mg/mL4 mgNaCl 0.9%200 mL * Agents Name ETO2 ETN2O Inspired N2O Set O2% MAC Case O2 Flow Rate * Blood No blood administrations on file. WqleWiynbeuTgtidkjafHhimneeSZR62/13/25; 1037; [facility] Facility; Short; Left; Hand; 22 Gauge; 04/29/25; 43502906/29/24 1037 by Analia Caballero RN04/29/25 1229 by Brennon Lowe RNdocumented in this encounter Social History Tobacco UseTypesPacks/DayYears UsedDateSmoking Tobacco: NeverSmokeless Tobacco: NeverAlcohol UseStandard Drinks/WeekCommentsYes0 (1 standard drink = 0.6 oz pure alcohol)socially, no drink since HC UtilitiesAnswerDate RecordedIn the past 12 months has the electric, gas, oil, or water [employer]sdecco threatened to shut off services in your home?No4PHQ-2AnswerDate RecordedScore (Questions 1 & 2)Hunger Vital SignAnswerDate [...] RecordedNational Score (1-100), lower number is lower bzkw733112/11/2023State Score (1-10), lower number is lower mtxe494ata from: https://www.neighborhoodatlas.medicine.[facility].edu/. Last address used for cknwjunmrxm[address]12/11/2023Sex and Gender InformationValueDate Recorded Sex Assigned at MkmsuGmnh24/24/2025 12:44 PM EDTLegal YkgGrgi3412/05/2020 12:24 PM EDTGender IhrfvbocRrou53/24/2025 12:44 PM EDTSexual OrientationNot on file documented as of this encounter Last Filed Vital Signs Vital SignReadingTime TakenCommentsBlood Qemoneba26/5704/29/2025 11:38 AM EST Bogoo102304/29/2025 11:37 AM ESTTemperature--Respiratory Rate--Oxygen Saturation 96%04/29/2025 11:37 AM ESTInhaled Oxygen Concentration--Weight--Height--Body Mass Index--documented in this encounter Functional Status * Are you deaf or do you have serious difficulty hearing?AnswerDate of FwjikkezykAcbkbtMm59/04/2024 4:30 PM Sheri Guo RN * Are you blind or do you have serious difficulty seeing, even when wearing glasses?AnswerDate of UnouyctdftPannlwDe58/11/2024 4:30 PM Sheri Guo RN * Do you have serious difficulty walking or climbing stairs?AnswerDate of YmrnbtrxtzBcjxfcEn23/11/2024 4:30 PM Sheri Guo RN * Do you have difficulty dressing or bathing?AnswerDate of AssessmentAuthorNo 12/26/2023 4:30 PM Sheri Guo RN * Because of a physical, mental, or emotional condition, do you have difficulty doing errands alone such as visiting a doctor's office or shopping?AnswerDate of DupejuerizLuehcgSu54/11/2024 4:30 PM Sheri Guo RN documented as of this encounter Mental Status * Because of a physical, mental, or emotional condition, do you have serious difficulty concentrating, remembering, or making decisions?AnswerEntry Date OmceqsEk12/11/2024 4:30 PM Sheri Guo RN documented in this encounter Procedure Notes * Gene Walker MD - 04/29/2025 12:55 PM EST POST ANESTHESIA EVALUATION NOTE : 1950 Procedure Summary Date: 04/29/25 Room / Location: Gastroenterology Anesthesia Start: 1115 Anesthesia Stop: 1142 Procedure: EGD - THERAPEUTIC, EUS, OR TUBE INTERVENTIONS Diagnosis: Esophageal dysphagia Esophageal dysmotility (Established esophageal varices) Scheduled Providers: Patrice Frost MD; Yola Anderson APRN.RN GYN; Gene Walker MD Responsible Provider: Gene Walker MD Anesthesia Type: general, MAC ASA Status: 3 Anesthesia Type: general, MAC Airway Type: supplemental O2 Last Vitals Vitals Value Taken Time BP 138/77 04/29/25 12:10 Temp 36 ??C (96.8 ??F) 04/29/25 11:48 Pulse 86 04/29/25 12:15 Resp 16 04/29/25 12:00 SpO2 97 % 04/29/25 12:15 Vitals shown include unfiled device data. Post Anesthesia Patient Status Patient Evaluation: bedside. Neurological Status: aware and responsive. Pulmonary Status: breathing comfortably on supplemental oxygen Airway Control: returned to baseline unsupported. Cardiovascular Status: stable. Pain Management: clinically adequate Postoperative Hydration: acceptable. Intraoperative Events: no significant anesthesia events Post Operative Nausea/Vomiting Status: no significant post operative nausea or vomiting Recommendation: further care per PACU/ICU/floor team. Anesthesia Observations No Documentation SIGNATURE: Gene Walker MD PATIENT NAME: Bryan Harris DATE: April 29, 2025 TIME: 12:55 PM CSN: [id number] * Gene Walker MD - 04/29/2025 10:17 AM EST ANESTHESIOLOGY DAY OF SURGERY NOTE : 1950 Procedure Information Date/Time: 04/29/25 1100 Scheduled providers: Patrice Frost MD; Yola Anderson APRN.RN GYN; Gene Walker MD Procedure: EGD - THERAPEUTIC, EUS, OR TUBE INTERVENTIONS Location: Gastroenterology Estimated body mass index is 26.45 kg/m?? as calculated from the following: Height as of 03/24/25: 182.9 cm (6'). Weight as of 03/24/25: 88.5 kg (195 lb). Most recent hematocrit and potassium results: Hematocrit 37.9 01/25/2025 Potassium 3.8 03/26/2025 Relevant Problems CARDIO (+) Atherosclerosis of coronary artery (+) Esophageal varices (HCC) (+) Primary hypertension -RENAL (+) FLOYD (acute kidney injury) (+) Chronic kidney disease (+) Cirrhosis of liver (HCC) (+) Stage 3a chronic kidney disease (HCC) PULMONARY (+) Chronic cough (+) Interstitial lung disease (HCC) Cardiovascular (+) Orthostatic hypotension Gastrointestinal (+) Abdominal ascites (+) Esophageal dysphagia (+) Nausea & vomiting Other (+) History of pericarditis I - PHYSICAL EVALUATION AIRWAY Patient intubated: No. Tracheostomy tube not present Mallampati: III. TM distance: <3 FB. Neck ROM: full ROM without neurological symptoms. Mouth opening: <2 FB. Short neck: no. Thick neck: no Microretrognathia/Micronagthia/Recessed Chin: Yes DENTAL Dental findings: teeth intact. II - ANESTHESIA PLAN ASA Score: 3 Anesthetic Plan: general and MAC Airway type: supplemental O2 The patient is not a current smoker. NPO Status: adequate Monitoring Plan Monitoring plan: standard ASA. Informed Consent Anesthetic risks, benefits, alternatives, personnel and consent discussed: yes. Patient / Responsible Libertarian agrees to proceed: yes Patient / Surrogate agrees to blood products: blood products not planned Potential Anesthesia issues that may suggest increased risk of complications or contraindication toplanned procedure: potential difficult intubation. No vitals data found for the desired time range. Outpatient Medications as of 04/29/2025 Medication Sig amoxicillin-clavulanate potassium (AUGMENTIN) 875-125 mg per tablet Take 1 tablet by mouth every 12hours. torsemide (DEMADEX) 100 mg tablet Take 0.5 tablets by mouth once daily. pantoprazole DR (PROTONIX) 40 mg tablet Take 1 tablet by mouth once daily. famotidine (PEPCID) 20 mg tablet Take 20 mg by mouth daily at bedtime. quiNINE 324 mg capsule Take 1 capsule by mouth two times a day. atorvastatin (LIPITOR) 10 mg tablet Take 10 [...] 10 mg by mouth once daily. calcium ucb-iaf-L0-Zn-engraver copperplate-kian 250 mg-40 mg- 125 unit-3.75mg tab Take by mouth. allopurinol (ZYLOPRIM) 300 mg tablet Take 300 mg by mouth once daily. No current facility-administered medications on file as of 04/29/2025. I have interviewed and examined the patient. I have reviewed the medical record and/or the pre-anesthesia evaluation, pertinent labs, and test results. This contains updated information obtained within 48 hours of Surgery/Procedure. SIGNATURE: Gene Walker MD PATIENT NAME: Bryan Harris DATE: April 29, 2025 TIME: 10:17 AM CSN: [id number] documented in this encounter Plan of Treatment DateTypeDepartmentCare Team (Latest Contact Info)Lkboahuexog40/26/2025 8:25 AM ESTOffice Visit Gastroenterology [address] [address] Luis Valentine MD [address] [place] [address] Araseli Wall Ynyhqtxe53/26/2025 11:45 AM ESTOffice [place] [address] [place], [place] [phone] [place] [address] [place], [place] [phone] Follow-up05/21/2025 2:00 PM ESTOffice Visit Cardiology [address] [place] [address] [place] [address] [facility] [place] [address] 6 month follow updocumented as of this encounter Goals GoalPatient Goal TypeAssociated ProblemsRecent ProgressPatient-Stated?Author Blood Pressure < 130/80 Blood Uftamwyt588/72(04/29/2025 12:00 PM EST)Sung Mosley MD documented as of this encounter Visit Diagnoses Not on filedocumented in this encounter Administered Medications Medication OrderMAR ActionAction DateDoseRateSite dexAMETHasone sodium phosphate injection (DECADRON) INTRAVENOUS, NEEDED, Starting on Luci 04/29/25 at 1122, Until Luci 04/29/25 at 1143, Anesthesia Intraprocedure Given04/29/2025 11:29 AM EST4 mg lidocaine 100 mg/5 mL (2 %) IV syringe INTRAVENOUS, NEEDED, Starting on Luci 04/29/25 at 1121, Until Luci 04/29/25 at 1143, Anesthesia Intraprocedure Given04/29/2025 11:21 AM EST80 mg NaCl 0.9% iv infusion INTRAVENOUS, X (ONE-STEP ONLY) CONTINUOUS PRN, Starting on Luci 04/29/25 at 1116, Until Luci 04/29/25at 1143, Anesthesia Intraprocedure New Bag/Syringe/Rxwfnm1404/29/2025 11:16 AM EST ondansetron (PF) injection (ZOFRAN) INTRAVENOUS, NEEDED, Starting on Luci 04/29/25 at 1122, Until Luci 04/29/25 at 1143, Anesthesia Intraprocedure Given04/29/2025 11:22 AM EST4 mg propofol infusion (DIPRIVAN) INTRAVENOUS, X (ONE-STEP ONLY) CONTINUOUS PRN, Starting on Luci 04/29/25 at 1121, Until Luci 04/29/25at 1143, Anesthesia Intraprocedure Rate/Dose Cfaepb8904/29/2025 11:25 AM GWC131 mcg/kg/qrp215.44 mL/hrNew Bag/Syringe/Etrgpy9204/29/2025 11:21 AM IPM476 mcg/kg/gte772.3 mL/hr propofol injection (DIPRIVAN) INTRAVENOUS, NEEDED, Starting on Luci 04/29/25 at 1121, Until Luci 04/29/25 at 1143, Anesthesia Intraprocedure Given04/29/2025 11:23 AM EST20 lnItarq7204/29/2025 11:21 AM EST40 mgdocumented in this encounter Care Teams Team MemberRelationsParkview Community Hospital Medical CenterpecialtyStart [place] [address] [place] [address] PCP - GeneralFamnly Medicine12/29/23 Jere Sales MD [address] [address] ReferringGastroenterology12/05/20 Calin Gotti DO [address] [place] [address] Internal Medicine10/16/23 Dawit Lorenz DO [address] [place] [address] Internal Wupzqkxo27/31/25documented as of this encounter
--- OUTSIDE RECORDS SUMMARY | 2025-05-07 11:32 | XMS_ITS | Encounter Summary ---
Author Organization [facility] Address [address] [place] [address] Care Team Providers Care Retail Team Member Name Role Phone Jere Sales MD Unavailable [phone] Calin Gotti DO Unavailable [phone] Jose Antonio Meyers MD Primary Care Provider [phone] Dawit Lorenz DO Unavailable [phone] Source Comments In the event this information is protected by the Federal Confidentiality of Alcohol and Drug AbusePatient Records regulations: The Federal rules restrict any use of the information to criminally investigate or prosecute any alcohol or drug abuse patient.[facility] Encounter Details DateTypeDepartmentCare Team (Latest Contact Info)Lhgbsnaxbfv31/13/2025Travel Social History Tobacco UseTypesPacks/DayYears UsedDateSmoking Tobacco: NeverSmokeless [...] RecordedNational Score (1-100), lower number is lower fnfb436012/11/2023State Score (1-10), lower number is lower dgxk921ata from: https://www.neighborhoodatlas.medicine.[facility].edu/. Last address used for urfbrkztjck[address]12/11/2023Sex and Gender InformationValueDate Recorded Sex Assigned at TxsocJpjr80/24/2025 12:44 PM EDTLegal LakYcbi1312/05/2020 12:24 PM EDTGender ZuoplvqvIyhc48/24/2025 12:44 PM EDTSexual OrientationNot on file documented as of this encounter Functional Status * Are you deaf or do you have serious difficulty hearing?AnswerDate of EzqssjfomlNzqpuoYy17/11/2024 4:30 PM Sheri Guo RN * Are you blind or do you have serious difficulty seeing, even when wearing glasses?AnswerDate of RayemqomvaSduatkYw41/11/2024 4:30 PM Sheri Guo RN * Do you have serious difficulty walking or climbing stairs?AnswerDate of TccamxuqvkOohwffVi24/11/2024 4:30 PM Sheri Guo RN * Do you have difficulty dressing or bathing?AnswerDate of AssessmentAuthorNo 12/26/2023 4:30 PM Sheri Guo RN * Because of a physical, mental, or emotional condition, do you have difficulty doing errands alone such as visiting a doctor's office or shopping?AnswerDate of MnpfefyaksCczcjwMv93/11/2024 4:30 PM Sheri Guo RN documented as of this encounter Mental Status * Because of a physical, mental, or emotional condition, do you have serious difficulty concentrating, remembering, or making decisions?AnswerEntry Date GgdmwwVu37/11/2024 4:30 PM Sheri Guo RN documented in this encounter Plan of Treatment DateTypeDepartmentCare Team (Latest Contact Info)Aptzylzgdzn03/26/2025 8:25 AM ESTOffice Visit Gastroenterology [address] [address] Luis Valentine MD [address] [place] [address] Araseli Wall Neuehpxc44/26/2025 11:45 AM ESTOffice [place] [address] [place] [address] [place] [address] [place] [address] Follow-up05/21/2025 2:00 PM ESTOffice Visit Cardiology [address] [place] [address] [place] [address] [facility] [address] [place], [place] [address] 6 month follow updocumented as of this encounter Goals GoalPatient Goal TypeAssociated ProblemsRecent ProgressPatient-Stated?Author Blood Pressure < 130/80 Blood Orpzxjzz698/72(04/29/2025 12:00 PM EST)Sung Mosley MD documented as of this encounter Visit Diagnoses Not on filedocumented in this encounter Care Teams Team MemberRelationshipSpecialtyStart [place] [address] [address] [address] PCP - GeneralFamily Medicine12/29/23 Jere Sales MD [address] [address] ReferringGastroenterology12/05/20 Calin Gotti DO [address] [place] [address] Internal Medicine10/16/23 Dawit Lorenz DO [address] [place] [address] Internal Bgkmuryl22/31/25documented as of this encounter
--- OUTSIDE RECORDS SUMMARY | 2025-05-07 11:32 | XMS_ITS | Clinical Summary ---
Author Organization [facility] Address [address] [place] [address] Care Team Providers Care Seismograph Observer Name Role Phone Dawit Lorenz DO Primary Care Provider [phone] Dawit Lorenz DO Unavailable [phone] Karthik Calloway MD Unavailable Unavail able Allergies Active AllergyReactionsCriticalityNoted DateCommentsOxycodone-AcetaminophenOther (See Comments)2016 Urinary retention Hallucinations TramadolShortness Of IssrwfInpt53/10/2015 Medications MedicationSigDispense QuantityRefillsLast FilledStart DateEnd DateStatus omeprazole [...] mouth every morning .Active vit A-vit C-vit H-wkor-xafvtp 7160-379-100 uuki-vh-nsmx Tab Take 1 tablet by mouth every [...] g 5Active Active Problems ProblemNoted DateDiagnosed DateUrinary rogmtyahp87/11/2017 Assessment & Plan (06/27/2016 12:19 PM EST): [...] for , 07/05/16 @ 130pm at our [facility] office. S/P total knee vlnmtwojcmrp08/09/8336Xhbpoiylneyfcf33/09/2017Primary osteoarthritis of left knee08/02/2015Retention of urine08/25/2014cute blood loss wunqpb6508/24/20145078Qypbbdxgvpph75/10/2015Osteoarthritis of left knee08/23/2014 Assessment & Plan (08/23/2014 1:29 PM EDT): Postoperative day of surgery left total knee arthroplasty. Enteric coated aspirin--deep venous thrombosis prophylaxis per primary surgical service. Analgesia: Percocet + IV hydromorphone as needed for breakthrough pain. Other and unspecified infepyxnfacdft30/09/2015 Assessment & Plan (08/23/2014 1:30 PM EDT): Hyperlipidemia-controlled on statin--continue postop. Aicegjd5608/23/2014 Overview (03/17/2015): Updated per ICD10 Conversion Assessment [...] InformationValueDate RecordedSex Assigned at BirthNot on fileLegal ZrqBuoo3902/09/2014 1:03 PM EDTGender IdentityNot on file Sexual OrientationNot on file Last Filed Vital Signs Vital SignReadingTime TakenCommentsBlood Btybdluo766/76006/29/2016 7:30 AM EST Onszv6043 7:30 AM ZPDSkzxxkdglgv20.9 ??C (98.4 ??F)06/29/2016 7:30 AM ESTRespiratory Cqhp610506/29/2016 7:30 AM ESTOxygen Omevasgdhw94%06/29/2016 7:30 AM ESTInhaled Oxygen Concentration--Esyhpe28.8 kg (220 lb)02/11/2023 3:16 PM EDT Tddaux496.9 cm (6')02/11/2023 3:16 PM EDTBody Mass Index29.8402/11/2023 3:16 PM EDT Plan of Treatment Health MaintenanceDue DateLast DoneCommentsCT Xfpwgpvhapri1950Colonoscopy 1Colorectal Cancer Screening/Ipvdsvsvbq1950Fecal DNA1950 Fecal occult blood test (FOBT,FIT)1PSA Level1951Medicare Wellness Visit4Depression Screening/Follow-Up (PHQ-2/9)1963Hepatitis C Uunifcrpt84/27/1969Flexible irigsxklausgy80/27/2001Falls Risk Assessment 2016Tetanus/Diphtheria/Pertussis (1 - Tdap), 06/04/2018Zoster Vaccines (2 of 2)COVID-19 Vaccine (4 - season)/, 09/13/2020, 08/22/2020Influenza Vaccine (#1)/, 05/09/2020RSV Vaccines (1 - 1-dose 75+ series) 2026Pneumococcal Vaccine: 50+ SpuuzNimvtqygq87/20/2018, 11/26/2016HIB VaccinesAged OutNo longer eligible based on [...] 1 X 40 [place] [employer] Single - [id number] Implanted:Qty: 2 on 08/23/2014 [facility]: EwphJoqasb99/31/838404-0116-246-20 / / [id number] Short Cemented Persona - [id number] Implanted:Qty: 1 on 08/23/2014 by [facility] at [facility]09/23/[id number] / / [id number] Sz F Tib 5deg Nonpor Lt Persona - [id number] Implanted:Qty: 1 on 08/23/2014 by Karthik Calloway MD at [id number] / / [id number] Sz9 Lt Nrw Ps Cmt Ccr Persona - [id number] Implanted:Qty: 1 on 08/23/2014 by Karthik Calloway MD at [id number] / / [id number] 32mm All Poly Persona - [id number] Implanted:Qty: 1 on 08/23/2014 by Karthik Calloway MD at [id number] / / [id number] Surf Ef 6-9 14mm Lt Ps Vivacit-E Persona - [id number] Implanted:Qty: 1 on 08/23/2014 by [facility]09/23/2017078495-8028-746-97 / / [id number] Hv With Gentamicin Cement Implanted:Qty: 2 on 06/25/2016 by [facility]: ViwtUSLRENNPH73/31/[id number] / / [id number] Sz F Tib 5deg Nonpor Rt Persona - [id number] Implanted:Qty: 1 on 06/25/2016 by [id number] / / [id number] Sz9 Rt Nrw Ps Cmt Ccr Persona - [id number] Implanted:Qty: 1 on 06/25/2016 by [id number] / / [id number] Short Cemented Persona - [id number] Implanted:Qty: 1 on 06/25/2016 by [id number] / / [id number] 32mm All Poly Vivacit-E - [id number] Implanted:Qty: 1 on 06/25/2016 by [facility]ik [facility]: [place] [id number] / / [id number] Surf 14mm 6-9ef Rt Cps Ve Persona - [id number] Implanted:Qty: 1 on 06/25/2016 by [id number] / / [id number]kdiojTzjzkn IdentifierShelf Expiration DateModel / Serial / LotHeaded Screw Explanted:Qty: 4 on 08/23/2014 by [facility]: KjkqZumxae24/28/26201975-25 / / [id number] Female Hex Screw Explanted:Qty: 1 on 08/23/2014 by [facility]: YqppZdggvi61/31/450115-8702-878-38 / / [id number] Screw Explanted:Qty: 1 on 08/23/2014 by [facility]: YardSjfgff77/31/[id number] / / Insurance * Guarantor: Bryan Harriscoprosper TypeRelation to PatientDate of BirthPhone Billing AddressPersonal/KlrogoQnko1950 [phone] (Home) [address] [place] [address] Advance Directives For more information, please contact: [phone] * Full Code (Latest Code Status on File) Date ActivatedDate InactivatedComments06/25/2016 1:54 PM06/29/2016 3:41 PM * Full Code Date ActivatedDate InactivatedComments08/23/2014 6:45 AM08/25/2014 7:58 PM Care Teams Team MemberRelationshipSpecialtyStart DateEnd Date Dawit Lorenz DO [address] [place] [address] PCP - GeneralInternal Medicine06/29/14 Dawit Lorenz DO [address] [place] [address] Internal Medicine06/29/14 Karthik Calloway MD [address] [place] [address] Consulting PhysicianOrthopedic Surgery01/28/17
--- OUTSIDE RECORDS SUMMARY | 2025-05-07 11:32 | XMS_ITS | Patient Health Record ---
Author Organization [facility] in [place] Address [address] [place] [address] Care Team Providers Care Flight Security Specialist Name Role Phone Dawit Lorenz DO Primary Care Provider Tasneem fernandez ShenCalin Unavailable [phone] Allergies Allergen (clinical drug ingredient) Drug/Non Drug [...] nts Arexvy Unknown 05/27/2024 Administered Flu, Fluad (67806) 66 yrs + High Dose Seasonal (3211-4105)Ljtpvdn9405/27/2024 AdministeredFlu, Fluad (79566) 66 yrs + Trivalent (3278-8255)Ztjmhsi7105/09/2020 AdministeredPneumococcal (Pneumovax 23)Bqhgmmi4402/03/2018AdministeredPneumococcal (Prevnar 13)Ulxpvic1811/26/20168245VcyguidbbzwvOXOG-QMF-4 (COVID 19 Pfizer 30mcg/0.3mL)Azwrkfg1105/10/2021dministeredTdap (Boostrix)Okbqzce6305/27/2024 AdministeredZOSTER (SHINGLES) VACCINE (HZV)Uprrqdx0708/30/2018Administered Social History Tobacco Use: Social History Observation Description Date Details (start date - stop date) Never Smoker NA - NA Tobacco Control (Standard) Question Answer Notes Tobacco use: Nonsmoker Problems Problem Type SNOMED Code ICD Code Onset Dates Problem Status W/U Status Risk Notes Problem Erythrocyte sediment ation rate raised (172744458) Elevated erythrocyte sedimentation rate (R70.0) ActiveconfirmedProblemHyperlipidemia (78675640)Hyperlipidemia (E78.5)Active confirmedProblemCoronary artery disease (78331773)CAD (coronary artery disease) (I25.10)ActiveconfirmedProblemPleural effusion (95238114)Pleural effusion (J90) ActiveconfirmedProblemMultiple pulmonary nodules (630751110)Multiple pulmonary nodules (R91.8)ActiveconfirmedProblemCalcified lymph nodes (170684187)Calcified lymph nodes (I89.8)ActiveconfirmedProblemPericardial effusion (222080875) Pericardial effusion (I31.39)Activeconfirmed Vital Signs Heart Rate 83 /min 07/21/2024 Bfirxvufiee81.0 degrees Tqleosynci83/04/2025Respiratory Rate18 /min07/21/2024 Ktwmrulk58.8 %07/21/2024lood pressure fgusgeovy15 mm Hg07/21/20247573Wqulkx94 in 07/21/2024lood pressure wbryqykg851 mm Hg07/21/20241441Wvjilu687.4 lbs07/21/2024MI 26.63 kg/m207/21/2024 Encounters Encounter Location Date Provider Diagnosis Pulmonary Medicine [address] [address] 07/21/2024 Calin Gotti Pleural effusion J90 Assessments [...] able to offer would be referral to [facility] in [place], [place] for a third opinion. At this time, I am not contributing anything additional to his therapy. He will follow-up as needed. 07/21/2024Other Plan Of Treatment No Information Insurance Providers Payer Name Payer Address Payer Phone Subscriber Number Group Number Insured Name Patient Relationship to Insured Coverage Start Date Coverage End Date [employer] MED[employer]ARE [address] [place], [place] [id number] Bryan Harris Self - patient is the [...]
--- OUTSIDE RECORDS SUMMARY | 2025-05-07 11:32 | XMS_ITS | Encounter Summary ---
Author Organization [facility] Address [address] [place] [address] Care Team Providers Care Director Of Strategic Partnerships Name Role Phone Jere Sales MD Unavailable [phone] Calin Gotti DO Unavailable [phone] Jose Antonio Meyers MD Primary Care Provider [phone] Dawit Lorenz DO Unavailable [phone] Source Comments In the event this information is protected by the Federal Confidentiality of Alcohol and Drug AbusePatient Records regulations: The Federal rules restrict any use of the information to criminally investigate or prosecute any alcohol or drug abuse patient.[facility] Encounter Details DateTypeDepartmentCare Team (Latest Contact Info)Uvzlkzmqypw29/20/2025Interfaced Data Apparel Manager Management [address] [place] [address] Tere Poon MD Social History Tobacco UseTypesPacks/DayYears UsedDateSmoking Tobacco: NeverSmokeless [...] steady place to sleep or slept in [place] (including now)?No11/21/2023rea Deprivation IndexAnswerDate RecordedNational Score (1-100), lower number is lower znud411412/11/2023State Score (1-10), lower number is lower gbbl970ata from: https://www.neighborhoodatlas.medicine.[facility].edu/. Last address used for hckratqgayd[address]12/11/2023Sex and Gender InformationValueDate Recorded Sex Assigned at JnkohYsdt07/24/2025 12:44 PM EDTLegal FqcByuq9112/05/2020 12:24 PM EDTGender KmwtedieBfoi97/24/2025 12:44 PM EDTSexual OrientationNot on file documented as of this encounter Functional Status * Are you deaf or do you have serious difficulty hearing?AnswerDate of WjmlwdetboGcagquDf73/11/2024 4:30 PM Sheri Guo RN * Are you blind or do you have serious difficulty seeing, even when wearing glasses?AnswerDate of TinemavyzaCuhxqeUm32/11/2024 4:30 PM Sheri Guo RN * Do you have serious difficulty walking or climbing stairs?AnswerDate of NxmqnmnrixJmzjcdRp65/11/2024 4:30 PM Sheri Guo RN * Do you have difficulty dressing or bathing?AnswerDate of AssessmentAuthorNo 12/26/2023 4:30 PM Sheri Guo RN * Because of a physical, mental, or emotional condition, do you have difficulty doing errands alone such as visiting a doctor's office or shopping?AnswerDate of LzcbnevbevUdndwrSa68/11/2024 4:30 PM Sheri Guo RN documented as of this encounter Mental Status * Because of a physical, mental, or emotional condition, do you have serious difficulty concentrating, remembering, or making decisions?AnswerEntry Date KcykddPm85/11/2024 4:30 PM Sheri Guo RN documented in this encounter Plan of Treatment DateTypeDepartmentCare Team (Latest Contact Info)Egcvuijamxj76/26/2025 8:25 AM ESTOffice Visit Gastroenterology [address] [address] Luis Valentine MD [address] [place] [address] Araseli Wall Daiuqvjg54/26/2025 11:45 AM ESTOffice [place] [address] [address] [place], [place] [id number] [place] [address] [place] [address] Follow-up05/21/2025 2:00 PM ESTOffice Visit Cardiology [address] [facility] [place] [address] [place] [address] [facility] [place] [address] 6 month follow updocumented as of this encounter Goals GoalPatient Goal TypeAssociated ProblemsRecent ProgressPatient-Stated?Author Blood Pressure < 130/80 Blood Kxrsyhnu065/72(04/29/2025 12:00 PM EST)Sung Mosley MD documented as of this encounter Visit Diagnoses Not on filedocumented in this encounter Care Teams Team MemberRelationshipSpecialtyStart [place] [address] [address] [place] [address] PCP - GeneralFamily Medicine12/29/23 Jere Sales MD [address] [address] ReferringGastroenterology12/05/20 Calin Gotti DO [address] [place] [address] Internal Medicine10/16/23 Dawit Lorenz DO [address] [place] [address] Internal Wskzkzfj19/31/25documented as of this encounter
--- OUTSIDE RECORDS SUMMARY | 2025-05-07 11:32 | XMS_ITS | Clinical Summary ---
Author Organization [facility] Address [id number] 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
--- OUTSIDE RECORDS SUMMARY | 2025-05-07 11:32 | XMS_ITS | Clinical Summary ---
Author Organization [facility] Address [address] [place] [address] Care Team Providers Care Wool Spotter Name Role Phone Dawit Lorenz Primary Care Provider [phone] Allergies Active AllergyReactionsCriticalityNoted DateCommentsOxycodone-Acetaminophen Vswkqzn2803/13/2016 Other Reaction(s): Other (See Comments) Urinary retention Hallucinations TramadolShortness of breath,WdyfzztErln44/10/2015 Other Reaction(s): Mental Status Change Medications MedicationSigDispense [...] posterior capsular opacification 08/12/2024halazion of left upper atqgaw4408/12/2024 Encounters DateTypeDepartmentCare YzmyZxrnlyoufgz38/11/2025 1:45 PM ESTOffice Visit [facility] [address] [place] [address] Uzair Lubin DPM 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, stage 2 ([facility]) (Primary Dx); Cellulitis of left foot; Pain in toe of left foot; Difficulty wlxyynp9004/27/2025amboo flowsheet [facility] [address] [place] [address] Uzair Lubin DPM 04/27/20257290Mwjgbx30/29/2025 4:15 PM EDTProcedure Visit [facility] [address] [place] [address] Uzair Lubin DPM Dermatophytosis of nail (Primary Dx); Dystrophic nail; Pain around toenail, right foot; Pain around toenail, left foot04/14/2025amboo flowsheet [facility] [address] [place] [address] Uzair Lubin, DPM 04/14/20254105Gxigvj31/09/2025 11:15 AM EDTOffice Visit [facility] [address] [place] [address] Uzair Lubin DPM 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, stage 2 ([facility]) (Primary Dx); Cellulitis of left foot; Pain in toe of left foot; Difficulty wgieitb14/09/2025Bamboo flowsheet [facility] [address] [place] [address] Uzair Lubin, DPM 03/25/20254464Eawicb47/08/9852Lhsiod17/01/2025 10:15 AM EDTOffice Visit [facility] [address] [place] [address] Uzair Lubin DPM 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, stage 2 ([facility]) (Primary Dx); Cellulitis of left foot; Pain in toe of left foot; Difficulty pbgppob45/01/2025Bamboo flowsheet [facility] [address] [place] [address] Uzair Lubin, DPM 03/17/20256030Nulbtj51/30/2638Pzfsrs29/26/2025 9:50 AM EDTAncillary Procedure [facility] [address] [place] [address] 03/12/2025 8:45 AM EDTOffice Visit [facility] [address] [place] [address] Uzair Lubin DPM 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, stage 2 ([facility]) (Primary Dx); Cellulitis of left foot; Pain in toe of left foot; Difficulty etvljra64/26/2025Bamboo flowsheet [facility] [address] [place] [address] Uzair Lubin DPM 03/12/20257027Junepr37/25/2025Travelfrom Last 3 Months Immunizations ImmunizationAdministration DatesNext DueInfluenza, High Dose Seasonal, Preservative Free05/27/2024Influenza, trivalent, bitaeuaxws48/23/2020 Pneumococcal Conjugate PCV 13011/26/2016Pneumococcal Polysaccharide PPSV23 02/03/2018RSV, recombinant, protein subunit RSVpreF, adjuvant reconstitu, 120mcg/0.5mL, PF (Arexvy)05/27/2024Td (adult), 5 Lf tetanus toxoid, preservative free, /16/2019,06/04/2018Tdap107/28/2023Zoster, Iqiauxhgmmg04/16/2019 Family History Medical HistoryRelationNameCommentsMelanomaNeg Hx Social History Tobacco UseTypesPacks/DayYears UsedDateSmoking Tobacco: NeverSmokeless Tobacco: Never Tobacco Cessation:Counseling Given: Not Answered Sex and Gender InformationValueDate RecordedSex Assigned at BirthNot on file Legal NjiNqub3608/29/2022 7:25 PM EDTGender IdentityNot on fileSexual Orientation Not on file Last Filed Vital Signs Vital SignReadingTime TakenCommentsBlood Pressure--Pulse--Temperature-- Respiratory Rate--Oxygen Saturation--Inhaled Oxygen Concentration--Mbhahc85.8 kg (187 lb)04/27/2025 2:01 PM VCXOdqung552.9 cm (6')04/27/2025 2:01 PM ESTBody Mass Index25.36106/27/2024 2:01 PM EST Plan of Treatment DateTypeDepartmentCare Team (Latest Contact Info)Cghzayjhtpa72/19/2026 1:15 PM ESTOffice Visit [facility] [address] [place] [address] Uzair Lubin, DPReinaldo [address] [place], [place] [address] 08/16/2025 1:30 PM ESTOffice Visit [facility] [address] [place] [address] Arley Hamilton DO [address] [place] [address] 08/31/2025 1:05 PM EDTOffice Visit [facility] [address] [place] [address] Bianca Bynum MD [address] [place] [address] Health MaintenanceDue DateLast DoneCommentsCT Kckbbztblvqj1951FIT-DNA 1951FIT1951FOBT03/13/19518005Unbmmbjqcsdqx1951OVID-19 Vaccine ( season)/, 09/13/2020, 08/22/2020Influenza Vaccine (#1)/04/2024, 05/09/20202530Wryfxjssczr39/12/716250/05/2024, 04/28/2024, 4Colorectal Cancer Iwnkcdmli97/12/2034Pneumococcal Vaccine: 65+ Years Tjdyebvml76/20/2018, 11/26/2016 Procedures Procedure NamePriorityDate/TimeAssociated DiagnosisCommentsXR FOOT 3+ VIEWS LEFT Vzhmhzs4503/12/2025 9:49 AM EDT Pressure injury of toe [...] 1st MTP joint. Authorizing ProviderResult TypeResult StatusStevedwin Yanira Michael DPMIMG XR PROCEDURES Final Result from Last 3 Months Insurance Care Teams Team MemberRelationshipSpecialtyStart DateEnd Date Dawit Lorenz, [address] [place] [address] PCP - GeneralInternal Medicine03/12/25
--- OUTSIDE RECORDS SUMMARY | 2025-05-07 11:33 | XMS_ITS | Clinical Summary ---
Author Organization [facility] Address [facility] [place] [address] Care Team Providers Care Assembly Department Supervisor Name Role Phone Jere Sales MD Unavailable Calin Gotti DO Unavailable [phone] Jose Antonio Meyers MD Primary Care Provider Dawit Lorenz DO Unavailable Allergies Active AllergyReactionsCriticalityNoted DateCommentsAdhesive Tape-Silicones Blnylquwhra67/19/2025 Pt developed petechiae/blood blister/skin tear from EKG stickers. TramadolMental Status PzuqirFwk90/01/2021 Medications MedicationSigDispense QuantityRefillsLast FilledStart DateEnd DateStatus allopurinol (ZYLOPRIM) 300 mg tablet Take 300 mg by mouth once daily.10/21/2020ctive calcium dcn-wqm-E4-Zn-music copyist-kian 250 mg-40 mg- 125 unit-3.75mg tab Take [...] two times a day. [address] (PROTONIX) 40 mg tablet Take 1 tablet by mouth once daily.5Active famotidine (PEPCID) 20 mg tablet Take 20 mg by mouth daily at bedtime.5Active torsemide (DEMADEX) 100 mg tablet Indications:Recurrent pleural effusion on right,AnasarcaTake 0.5 tablets by mouth once daily. 90 tablet 5Active amoxicillin-clavulanate potassium (AUGMENTIN) 875-125 mg per tablet Take 1 tablet by mouth every 12 hours.Active mirabegron (MYRBETRIQ) 50 mg Tb24 Indications:Urge incontinenceTake 1 tablet by mouth every evening. 90 tablet /03/2025Expired Active Problems Patient Care Coordination No te [...] characters) 11/20/2023: SURGERY:R VATS Pleural biopsy, R transformer mechanic and doxycycline pleurodesis, R Pleurx catheter [...] - Controlled with current regimen of Fent CARD CUTTER HELPER, Tylenol 1000 mg q6hrs, oxycodone 5-10 mg [...] to home once clinically stable. ProblemNoted DateDiagnosed DateAtherosclerosis of coronary ieimni5104/29/2025 Chronic kidney kmbghmu0104/29/2025irrhosis of liver04/29/2025Esophageal varices 04/29/2025Nausea & /13/2025Orthostatic yuoofwqwjgc42/13/2025Stage 3a chronic kidney gwrbktt5301/26/2025bdominal twflygz8111/23/2024KI (acute kidney injury)10/15/2024Esophageal vlhuvfxhg01/10/2025Lymphocytic nhltsvj5805/19/2024Lung ijtdlq6805/19/20249881Zjenflzjt11/01/2024hronic cough03/17/2024Interstitial lung uheuvoi8203/17/2024History of gtguyetxzlfm10/10/2024Elevated sedimentation rate 12/25/2023Elevated C-reactive protein (CRP)12/25/2023Generalized edema12/20/2023 Primary rejtflhmdxzs15/05/2024leural effusion, not elsewhere classified 12/20/2023ostoperative pain11/21/2023leural aatiksrp98/05/2024Obesity, Class I, BMI 30-34.9010/25/2023 Resolved Problems ProblemNoted DateDiagnosed DateResolved DateRaynaud's phenomenon without qmdkkuxf13 Encounters DateTypeDepartmentCare MrdzChjyhrimpgo24/20/2025Interfaced Data Shearing Machine Tender Management [address] [place] [address] Tere Poon MD 04/29/2025 11:15 AM ESTAnesthesia Event Gastroenterology [address] [address] Gene Walker MD 04/29/2025 9:43 AM EST - 04/29/2025 11:59 PM ESTHospital Encounter Gastroenterology [address] [address] Patrice Frost MD Esophageal dysphagia [R13.19] Discharge Disposition: Home04/29/20255401Vljuxx54/31/2025 Patient Msg [facility] [address] [place] [address] Provider, [facility] Primary Care Qkuxtllz49/31/2025Patient Outreach [facility] [address] [place] [address] Courtney Benedict Population Health Navigation Outreach (BRITTANY Padron Attribution list)03/29/2025 12:55 PM EDT - 03/29/2025 11:59 PM EDTHospital Encounter Radiology [address] [place] [address] [place] [address] Pleural effusion, not elsewhere classified [J90] Discharge Disposition: Home03/24/2025 11:30 AM EDTNurse Visit Gastroenterology [address] [address] 2, Nurse Gi Lab Esophageal gzxwnvnud38/08/2025 9:38 AM EDT - 03/24/2025 11:59 PM EDTHospital Encounter Gastroenterology [address] [place] [phone] Aure Giraldo MD Esophageal dysmotility [K22.4] Discharge Disposition: Home03/24/2025Results Follow-Up Gastroenterology [address] [address] Sue Terrell MD 03/18/2025Orders Only Gastroenterology [address] [address] Sue Terrell MD Esophageal dysphagia (Primary Dx)03/17/2025 Patient Dcg Gastroenterology [address] [place] [phone] Provider, [facility]cf EGD Prep Mbyoedavexxp59/01/2025 Preprocedure Call Gastroenterology [address] [place] [phone] Evans King, EVAN 03/17/2025 Patient Msg Gastroenterology [address] [address] Aure Giraldo MD upper endoscopy 4:30 PM EDTOffice Visit Gastroenterology [address] [address] Sue Terrell MD Esophageal dysmotility (Primary Dx); Esophageal vtdmgwwav68/23/2025 1:15 PM [place]TOff[place] [address] [place] [address] Jose Antonio Meyers MD Mixed connective tissue disease (HCC) (Primary Dx); Bruising; Primary hypertension; Stage 3a chronic kidney disease (HCC); Peripheral edema; Recurrent pleural effusion on right; Ysdszfcm38/19/6083Mqiiog13/18/2025Telephone Thoracic Clinic [address] [phone] Ronaldo Ramos MD, PhD Faxed Discharge Home Care Order03/03/2025Or[place] [address] [address] [place] [address] Jose Antonio Meyers MD Generalized edema (Primary Dx); Pleural vktafbnp29/11/2025 10:20 AM EDTOffice Visit Kidney [facility] [address] [place] [phone] Ar Suarez MD FLOYD (acute kidney injury) (Primary Dx); Screening for genitourinary condition; Elevated serum creatinine; Decreased GFR; Generalized edema; Pleural effusion, not elsewhere czaxlwjhnf42/11/2025Patient Outreach [facility] [address] [place] [phone] Ar Suarez MD 02/20/2025 Get Medical Advice Gastroenterology [address] [place] [phone] Araseli Wall APRN.CURT Harris 1:11 PM EDT - 02/19/2025 11:59 PM EDTHospital Encounter Radiology [address] [address] [phone] Other ascites [R18.8] Discharge Disposition: Home02/19/2025 Patient [facility] HB[facility] [place] [address] Salud Trinh RPh At your next appointment, choose [facility].02/19/2025 Patient [facility] [place] [address] Salud Trinh RPh At your next appointment, choose [facility].02/17/2025 Get Medical Advice Gastroenterology [address] [place] [phone] Araseli Wall APRN.CURT Harris. Patient [facility] [address] [phone] Araseli Wall APRN.CNP Biopsy follow up02/10/2025 Get Medical Advice Gastroenterology [address] [place] [address] Araseli Wall APRN.CNP Stan Moyer. 1-15-1107rsnc Last 3 Months Immunizations ImmunizationAdministration DatesNext DueCOVID-19 original vaccine, age 12+ yr, monovalent (PFIZER-BIONTAirborne Mobile - PURPLE TOP)09/13/2020,08/22/2020,08/15/2020 influenza (HD-IIV3) vaccine, age 65+ yr, high dose, trivalent, PF (FLUZONE HIGH-DOSE)05/27/2024influenza (IIV3) vaccine, trivalent (AFLURIA, FLULAVAL, FLUVIRIN, FLUZONE)05/27/2024influenza (aIIV3) vaccine, age 65+ yr, trivalent, PF (FLUAD)05/09/2020influenza vaccine, unspecified qwtpvgmwuvn66/23/2020 pneumococcal conjugate (PCV13) vaccine, 13 valent (PREVNAR [...] RecordedNational Score (1-100), lower number is lower xinq544412/11/2023State Score (1-10), lower number is lower rltp768ata from: https://www.neighborhoodatlas.medicine.[facility].edu/. Last address used for ynaijkprwgu[address]12/11/2023Sex and Gender InformationValueDate Recorded Sex Assigned at BtxmqCrvn19/24/2025 12:44 PM EDTLegal IuzCfmr2112/05/2020 12:24 PM EDTGender GludaherRbvj41/24/2025 12:44 PM EDTSexual OrientationNot on file Last Filed Vital Signs Vital SignReadingTime TakenCommentsBlood Zwwtwhsi598/7211 12:00 PM EST Ordpm114304/29/2025 12:00 PM MBNFtcdqtxbbww05 ??C (96.8 ??F)04/29/2025 11:48 AM ESTRespiratory Xzjn531506/29/2024 12:00 PM ESTOxygen Bzqtqwblpo97%04/29/2025 12:00 PM ESTInhaled Oxygen Concentration--Konbie88.2 kg (190 lb)04/29/2025 10:36 AM MBDAdnyqn921.9 cm (6')04/29/2025 10:36 AM ESTBody Mass Index25.7704/29/2025 10:36 AM EST Plan of Treatment DateTypeDepartmentCare Team (Latest Contact Info)Bznsmkaysuy06/26/2025 8:25 AM ESTOffice Visit Gastroenterology [address] [address] Luis Valentine MD [address] [place], [place] [address] Araseli Wall Xdyamuoh75/26/2025 11:45 AM ESTOffice [place] [address] [facility] [place], [place] [phone] [place] [address] [facility] [place] [address] Follow-up05/21/2025 2:00 PM ESTOffice Visit Cardiology [address] [place] [address] [place] [address] [place] [address] 6 month follow upHealth MaintenanceDue DateLast DoneCommentsAnxiety Screening 1969Depression Gjqqttotq11/27/1969Hepatitis A Vaccine (1 of 2 - Risk 2- dose series)1970CT Boukqwlvpoos02/27/1996Cologuard (FIT-DNA)1996 Fecal Occult Blood03/13/19963201Fmdjffdfxzrhr14/27/1996Hepatitis B Vaccine (1 of 3 - Risk 3-dose series)2011dvance Directive Ckhipjlfih77/01/2025Medicare Advantage Annual Wellness Visit5Covid-19 Vaccine ( season) /, 09/13/2020, 08/22/2020, Additional history existsInfluenza Vaccine (#1)/04/2024, 05/27/2024, 05/09/2020, Additional history glczghOpmsnlflsav00/12/202511/05/2024, 04/28/2024olorectal Cancer Screening 04/28/2025LDL Xoipskcdhpb27/02/202512/07/2023Hemoglobin/Dcmbicxizt69/11/2026 01/25/2025, 01/08/2025, 11/12/2024, Additional history existsAnnual PCP Team Chronic Disease Visit/Serum Ilvypjfmpl81/10/202610/03/2025, 03/05/2025, 02/11/2025, Additional history existsDiabetes Tripwyrqt13/10/2028 03/26/2025, 03/05/2025, 02/11/2025, Additional history existsLipid Screening /07/2023, 12/20/2023TaP,Tdap,Td Vaccine (2 - Td or Tdap)05/27/2034 05/27/2024, 08/30/2018, 06/04/2018Pneumococcal Vaccine: 50+Gjhpkkibc52/20/2018, 11/26/2016Shingrix JkpwzebCqwumprengcl82/16/2019RSV KjkcwetFzooinbls27/11/2024 Hepatitis C RqeaiarhzEoptwbpon97/25/2025, 11/17/2024, 11/17/2024 Goals GoalPatient Goal TypeAssociated ProblemsRecent ProgressPatient-Stated?Author Blood Pressure < 130/80 Blood Kpmsoepm632/72(04/29/2025 12:00 PM EST)Sung Mosley MD Medical Devices ImplantedTypeAreaManufacturerDevice IdentifierShelf Expiration DateModel / Serial / LotCatheterCatheterRight: ChestDescription:Pleur-x catheterJoint - Knee Joint - KneeBilateral: Bone - KneeScrewScrewRight: Bone - Wrist Procedures Procedure NamePriorityDate/TimeAssociated DiagnosisCommentsEGD - THERAPEUTIC, EUS, OR TUBE IYFHSDICRDIPMBwnclfc13/13/2025 11:03 AM EST Esophageal dysphagia Esophageal dysmotility XR CHEST 2V FRONTAL/NGIUbpbigs79/13/2025 1:09 PM EDT Pleural effusion, not elsewhere classified PLATELET AGGREGATION KMEGPTCnjtkmt48/10/2025 10:42 AM EDT Bruising EXTRA LAV MAN COAG BLJVGcyrjxv51/10/2025 10:42 AM EDT Bruising PLATELET LGAVFSRPELKHxdaaca71/10/2025 10:42 AM EDT Bruising PLATELET AGGREGATION PVBQABmczyjm00/10/2025 10:42 AM EDT Bruising BASIC METABOLIC LXACZFhuzpln12/10/2025 10:42 AM EDT Stage 3a chronic kidney disease (HCC) EGD - THERAPEUTIC, EUS, OR TUBE JMIIZDOZWZYMSIhvwodv93/08/2025 11:48 AM EDT Esophageal dysmotility MANOMETRY UTFZLAHBOPTnfaeir99/08/2025 Esophageal dysphagia PT ED DIGESTIVE QDUQDHK2203/17/2025 COMPREHENSIVE METABOLIC XBFCRRkbleml33/19/2025 11:14 AM EDT Generalized edema Pleural effusion PT ED PATIENT SRMLRXPMIPX75/16/2025 UA DIP, URINE (POC)Lczfnwv2702/25/2025 10:05 AM EDT Screening for genitourinary condition US DOPPLER MTOTMBCQVzkpjct97/05/2025 1:47 PM EDT Other ascites US ABD LIVER BHYRMPQHQcpjoln67/05/2025 1:47 PM EDT Other ascites COMPREHENSIVE METABOLIC UDOMQWzbaiji10/28/2025 11:12 AM EDT Stage 3a chronic kidney disease (HCC) COMPLETE BLOOD PVXPKMccwsat46/11/2025 11:00 AM EDT Anemia, unspecified type HEPATITIS C ANTIBODY IA WITH SAQRYVNSQQUTZctjclc01/25/2025 12:33 PM EDT Elevated alkaline phosphatase level CHOLESTEROL TCRItsjfdy62/02/2024 12:52 PM EST Pleural effusion COLONOSCOPY (THERAPEUTIC)Pfwxrkc0504/28/2024 11:16 AM EST from Last 3 Months or Most Recently Relevant to Health Maintenance Results * EGD - THERAPEUTIC, EUS, OR TUBE INTERVENTIONS (04/29/2025 11:03 AM EST) Anatomical RegionLateralityModalityOtherSpecimen (Source)Anatomical Location / LateralityCollection Method / VolumeCollection TimeReceived Time04/29/2025 11:03 AM EST Narrative 04/29/2025 12:28 PM EST Q3 Patient Name: Bryan Harris Procedure Date: 04/29/2025 11:03 AM Date of : 1950 Admit Type: Outpatient Age: 75 Gender: Male Note Status: Finalized Attending MD: Patrice Caraballo MD, [id number] Procedure: ? Upper GI endoscopy Indications: ? [...] Procedure Code(s): ? --- Professional --- ? 90954 CPT copyright 2021 [employer]. All rights reserved. Attending Participation: ? I was present and participated during the entire procedure, including ? non-mittal portions. Scope In: 11:24:38 AM Scope Out: 11:30:19 AM MD Patrice Cuellarh, MD 04/29/2025 11:39:31 AM This report has been signed electronically by Patrice Caraballo MD Number of Addenda: 0 Note Initiated On: 04/29/2025 11:03 AM Authorizing ProviderResult TypeResult StatusSue Terrell MDDIGESTIVE DISEASE Final Result * XR CHEST 2V FRONTAL/LAT (03/29/2025 1:09 [...] any questions regarding this interpretation, please call [phone]. If you are unable to reach us at the number above, please feel free to contact [facility] eRadiology at [phone]. Narrative 03/30/2025 12:40 PM EDT * * [...] and soft tissues: ??Unremarkable. Procedure Note Provider, [facility] - 03/30/2025 * * *Final Report* * [...] any questions regarding this interpretation, please call [phone]. If you are unable to reach us at the number above, please feel free to contact [facility] at [phone]. Authorizing ProviderResult TypeResult StatusColin Oneil MDRAD-PAMAFinal Result * (ABNORMAL) PLATELET AGGREGATION (03/26/2025 10:42 AM EDT)ComponentValueRef RangeTest MethodAnalysis TimePerformed AtPathologist SignatureADP 5 uM Max Zrvdyjpnmxn19(L)65 - 93 % Max03/30/2025 7:48 AM [facility] LABATP Release by ADP 5 uM0.40.1 - 1.3 nM03/30/2025 7:48 AM EDT [facility] LABADP 20 uM Max Alazweqauan6932 - 94 % Max 03/30/2025 7:48 AM [facility] LABATP Release by ADP 20 uM 0.80.1 - 1.4 nM03/30/2025 7:48 AM [facility] Arachidonic Acid Max Lxsshncgiua3447 - 100 % Max03/30/2025 7:48 AM EDT [facility] LABATP Release by Arachidonic Acid0.70.4 - 2.0 nM 03/30/2025 7:48 AM [facility] LABCollagen Max Aggregation 70(L)74 - 99 % Max03/30/2025 7:48 AM [facility] LABATP Release by Collagen0.60.4 - 1.7 nM03/30/2025 7:48 AM [facility] LABEpinephrine 10 uM Max Qxjtbsqceck9899 - 97 % Max03/30/2025 7:48 AM [facility] LABATP Release by Epinephrine 10 uM0.30.2 - 1.6 nM03/30/2025 7:48 AM [facility] LABEpinephrine 100 Max Aehhymeljwg2065 - 99 % Max03/30/2025 7:48 AM [facility] LABATP Release by Epinephrine 100 uM0.70.2 - 1.7 nM03/30/2025 7:48 AM [facility] LABTHROMBOXANE A2 3 UM MAX LLVWJXMCZXN3559 - 93 % Max03/30/2025 7:48 AM [facility] LABATP RELEASE BY THROMBOXANE A20.40.2 - 1.4 nM03/30/2025 7:48 AM [facility] LABTHROMBIN 1 UNIT ATP RELEASE1.0>0.510 7:48 AM [facility] LABRisto 1500 u/mL Max Kvqxgpvckoz7021 - 100 % Max 03/30/2025 7:48 AM [facility] LABRisto 1200 u/mL Max Pkyuvcawqlf3826 - 100 % Max03/30/2025 7:48 AM [facility] LABRisto 900 u/mL Max Njaamuomemn9798 - 100 % Max03/30/2025 7:48 AM EDT [facility] LABRisto 500u/mL Max Dlbsxycozoh79 - 9 % Max 03/30/2025 7:48 AM [facility] LABSpecimen (Source) Anatomical Location / LateralityCollection Method / VolumeCollection Time Received TimeBloodBLOOD SPECIMEN / UnknownVenipuncture / Tvdjwdp3203/26/2025 10:42 AM EDT1 10:43 AM EDT Narrative Authorizing ProviderResult TypeResult StatusVjuan francisco Meyers MDLABORATORYFinal ResultPerforming OrganizationAddressCity/State/ZIP CodePhone Number [place] [phone] [place] [id number], [place] * EXTRA LAV MAN COAG TUBE (03/26/2025 10:42 AM EDT)Specimen (Source)Anatomical Location / LateralityCollection Method / VolumeCollection TimeReceived Time BloodBLOOD SPECIMEN / UnknownVenipuncture / Fvfhgva2603/26/2025 10:42 AM EDT 03/26/2025 10:43 AM EDT Narrative Authorizing ProviderResult TypeResult StatusJose Antonio Meyers MDLABORATORYFinal ResultPerforming OrganizationAddressCity/State/ZIP CodePhone Number [facility] [address] [id number], [place] * PLATELET AGGREGATION INTERP (03/26/2025 10:42 [...] clinical findings and medication history.03/29/2025 6:39 PM [facility] LABPlt Aggreg Pathologist InterpReviewed by Edmund Lehman MD03/29/2025 6:39 PM [facility] LABSpecimen (Source)Anatomical Location / Laterality Collection Method / VolumeCollection TimeReceived TimeBloodBLOOD SPECIMEN / UnknownVenipuncture / Oxvznam1803/26/2025 10:42 AM EDT1 10:43 AM EDT Narrative Authorizing ProviderResult TypeResult StatusVjuan francisco Meyers MDLABORATORYFinal ResultPerforming OrganizationAddressCity/State/ZIP CodePhone Number [facility] LAB [address] [facility] [place] [address], * (ABNORMAL) BASIC METABOLIC PANEL (03/26/2025 10:42 AM EDT)ComponentValueRef RangeTest MethodAnalysis TimePerformed AtPathologist BkkdnthogNgnvhfh746(H)74 - 99 mg/dL03/26/2025 12:16 PM [facility] LABORATORYComment: The [employer] (ADA) provides guidance for cutoff [...] Standards of Medical Care in Diabetes 2016, [employer]. Diabetes Care. 2016.39(Suppl 1). BUN34(H)9 - 24 mg/dL03/26/2025 12:16 PM [facility] LABORATORYCreatinine 1.59(H)0.73 - 1.22 mg/dL03/26/2025 12:16 PM [facility] TVGTQKGVFHLoreul305 (L)136 - 144 mmol/L1 12:16 PM [facility] LABORATORYPotassium3.8 3.7 - 5.1 mmol/L1 12:16 PM [facility] SWGONHPWGWNnwafnqw12(L)98 - 107 mmol/L1 12:16 PM [facility] TJANTYNYBYWI58259 - 30 mmol/L 03/26/2025 12:16 PM [facility] LABORATORYAnion Hqa015 - 15 mmol/L 03/26/2025 12:16 PM [facility] LABORATORYCalcium, Total8.78.5 - 10.2 mg/dL 03/26/2025 12:16 PM [facility] LABORATORYEstimated Glomerular Filtration Rate45(L)>=60 mL/min/1.73m 03/26/2025 12:16 PM [facility] LABORATORYComment:Estimated Glomerular Filtration Rate (eGFR) is [...] VolumeCollection TimeReceived TimeBloodBLOOD SPECIMEN / UnknownVenipuncture / Byojiwa9203/26/2025 10:42 AM EDT1 10:43 AM EDT Narrative Authorizing ProviderResult TypeResult StatusJose Antonio Meyers MDLABORATORYFinal ResultPerforming OrganizationAddressCity/State/ZIP CodePhone Number [facility] [address] [place] [address], [place] * EGD - THERAPEUTIC, EUS, OR TUBE INTERVENTIONS (03/24/2025 11:48 AM EDT) Anatomical RegionLateralityModalityOtherSpecimen (Source)Anatomical Location / LateralityCollection Method / VolumeCollection TimeReceived Time03/24/2025 11:48 AM EDT Narrative 03/24/2025 12:15 PM EDT A31 Gastrointestinal Endoscopy Patient Name: Bryan Harris Procedure Date: 03/24/2025 11:48 AM Date of : 1950 Admit Type: Outpatient Age: 75 Room: [place] [address] Gender: Male Note Status: Finalized Attending MD: Aure Giraldo MD, [id number] Procedure: ? Upper GI endoscopy Indications: ? [...] Procedure Code(s): ? --- Professional --- ? 13234, Esophagogastroduodenoscopy, flexible, ? transoral; with insertion of guide wire followed by ? passage of dilator(s) through esophagus over guide ? wire Diagnosis Code(s): ? --- Professional --- ? 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 K76.6, Portal hypertension ? K31.89, Other diseases of stomach and duodenum ? R13.10, Dysphagia, unspecified CPT copyright 2020 [employer]. All rights reserved. The codes documented in this report are preliminary and upon business management intern review may be revised to meet current [...] On: 03/24/2025 11:48 AM Authorizing ProviderResult TypeResult StatusMaliha Naseer MDDIGESTIVE DISEASE Final Result * MANOMETRY ESOPHAGEAL (03/24/2025)Anatomical RegionLateralityModalityOther Specimen (Source)Anatomical Location / LateralityCollection Method / Volume Collection TimeReceived TimeImplant/Device/Foreign Body03/24/2025 Narrative 03/24/2025 Patient: Bryan Harris ?? [id number] Gender: Male Physician: Aure Giraldo MD / Age: 0903/13/1950 Induction Brazer: Julien Saleh LPN Height: Referring Physician: Sue [...] Motility Normal Number of swallows evaluated 10 [place] Classification ?% failed 0 ?% weak 0 [...] study Aure Giraldo MD Authorizing ProviderResult TypeResult StatusMalanupama Lidia MDDIGESTIVE DISEASE Final Result * PT ED DIGESTIVE DISEASE (03/17/2025)Specimen (Source)Anatomical Location / LateralityCollection Method / VolumeCollection TimeReceived Time03/17/2025 Narrative KATHY - 04/17/2025 Provider DUSTIN your patient ANG KIMBERLY has not started their Kathy program, time has . Kathy program: UPPER GI ENDOSCOPY (EGD) Authorizing ProviderResult TypeResult StatusClmarti Giraldo MDEMMIFinal Result Performing OrganizationAddressCity/State/ZIP CodePhone Number KATHY * (ABNORMAL) COMPREHENSIVE METABOLIC PANEL (03/05/2025 11:14 AM EDT) Only the most recent of2 resultswithin the time period is included. ComponentValueRef RangeTest MethodAnalysis TimePerformed AtPathologist Signature Protein, Total6.86.3 - 8.0 g/dL03/05/2025 11:52 AM EDTNORTMUN[facility] LABAlbumin4.03.9 - 4.9 g/dL03/05/2025 11:52 AM [facility] LABCalcium, Total8.78.5 - 10.2 mg/dL03/05/2025 11:52 AM EDT [facility] LABBilirubin, Total0.60.2 - 1.3 mg/dL 03/05/2025 11:52 AM EDTNORTMUNSON [facility] LABAlkaline Phosphatase 117(H)38 - 113 U/L03/05/2025 11:52 AM [facility] AST<5(L)14 - 40 U/L03/05/2025 11:52 AM [facility] UYP5055 - 54 U/L03/05/2025 11:52 AM [facility] Hikjgqi250(H)74 - 99 mg/dL03/05/2025 11:52 AM [facility] LABComment: The [employer] (ADA) provides guidance for cutoff [...] Standards of Medical Care in Diabetes 2016, [employer]. Diabetes Care. 2016.39(Suppl 1). HGF022 - 24 mg/dL03/05/2025 11:52 AM [facility] Creatinine1.23(H)0.73 - 1.22 mg/dL03/05/2025 11:52 AM [facility] QTRQpluhy558(L)136 - 144 mmol/L03/05/2025 11:52 AM [facility] LABPotassium4.93.7 - 5.1 mmol/L03/05/2025 11:52 AM EDT [facility] ZBDAqlosmew6161 - 107 mmol/L03/05/2025 11:52 AM [facility] HYTKT35482 - 30 mmol/L03/05/2025 11:52 AM [facility] LABAnion Kmb916 - 15 mmol/L03/05/2025 11:52 AM [facility] LABEstimated Glomerular Filtration Rate62>=60 mL/min/1.73m 03/05/2025 11:52 AM [facility] LABComment:Estimated Glomerular Filtration Rate (eGFR) is calculated [...] VolumeCollection TimeReceived TimeBloodBLOOD SPECIMEN / UnknownVenipuncture / Ocowjpr0103/05/2025 11:14 AM EDT03/05/2025 11:15 AM EDT Narrative Authorizing ProviderResult TypeResult StatusVyajosé manuel eMyers MDLABORATORYFinal ResultPerforming OrganizationAddressCity/State/ZIP CodeAspirus Langlade Hospital Number [facility] [address] [place] [address] * PT ED PATIENT INFORMATION (03/02/2025)Specimen (Source)Anatomical [...] MethodAnalysis TimePerformed AtPathologist SignatureGLUCOSE UA (POCT)Negative Negative mg/dLChesapeake Beach ClinicBILIRUBIN UA (POCT)NegativeNegativeTrinity Health System East CampusKETONE UA (POCT)NegativeNegative mg/dLAdena Regional Medical CenterPECIFIC GRAVITY UA (POCT)1.0151.005 - 1.030[facility] CampusHEMOGLOBIN/BLOOD UA (POCT)Negative NegativeTrinity Health System East CampusPH UA (POCT)7.04.5 - 8.0[facility] CampusPROTEIN UA (POCT)NegativeNegative mg/dLTrinity Health System East CampusUROBILINOGEN UA (POCT)0.2Normal E.U./dLTrinity Health System East CampusNITRITE UA (POCT)NegativeNegativeTrinity Health [facility] Campus LEUKOCYTES UA (POCT)NegativeNegativeTrinity Health System East CampusCOLOR UA (POCT)Light yellowCleMarietta Memorial HospitalCLARITY UA (POCT)ClearCleSelect Medical Specialty Hospital - Columbuspecimen (Source) Anatomical Location / LateralityCollection Method / VolumeCollection Time Received TimeUrine specimen (specimen)URINE SPECIMEN / Tqgljpe1402/25/2025 10:05 AM EDT Narrative [facility] POINT OF CARE - 02/25/2025 10:05 AM EDT Location:[facility], [address] [place] [address], [address] Authorizing ProviderResult TypeResult StatusAr Suarez MDPOC TESTING Final ResultPerforming OrganizationAddressCity/State/ZIP CodePhone Number [facility] POINT OF CARE [address] * US ABD LIVER VASCULAR (02/19/2025 1:47 PM EDT)Anatomical RegionLaterality ModalityAbdomenUltrasoundSpecimen (Source)Anatomical Location / Laterality Collection Method / VolumeCollection TimeReceived Time02/19/2025 1:47 PM EDT Impressions 02/19/2025 3:17 PM EDT IMPRESSION: Cirrhotic liver morphology. ??No lesion. Patent hepatic vasculature with appropriately directed flow. Small volume abdominal ascites around the liver and in right lower quadrant. Manager Financial Reporting: [facility] ?? Transcribe Date/Time: Feb ??5 2024 ??1:53P Dictated by : LISBETH REBOLLAR MD [...] VASCULAR ULTRASOUND WITH DOPPLER IMAGING CLINICAL HISTORY: [place] liver biopsy 02/02/2025: Hepatic parenchyma with zone [...] normal, phasic wave form. Procedure Note Provider, [facility] - 02/19/2025 * * *Final Report* * * DATE OF EXAM: Feb 19 2025 1:47PM [facility] 1233 - [facility] LIVER VASCULAR / PROCEDURE REASON: Other ascites * * * * Physician Interpretation * * * * EXAMINATION: LIVER VASCULAR ULTRASOUND WITH DOPPLER IMAGING CLINICAL HISTORY: [place] liver biopsy 02/02/2025: Hepatic parenchyma with zone [...] the liver and in right lower quadrant. Manager Financial Reporting[facility] Transcribe Date/Time: Feb 19 2025 1:53P Dictated by : LISBETH REBOLLAR MD This examination was interpreted and the report reviewed and electronically signed by: LONNIE ANN MD on Feb 19 2025 3:15PM EST Authorizing ProviderResult TypeResult StatusDonana maria Wall APRN.CNPUS-PAMAFinal Result * US DOPPLER COMPLETE (02/19/2025 1:47 PM EDT)Anatomical RegionLaterality ModalityUltrasoundSpecimen (Source)Anatomical Location / LateralityCollection Method / VolumeCollection TimeReceived Time02/19/2025 1:47 PM EDT Impressions 02/19/2025 3:17 PM EDT IMPRESSION: Cirrhotic liver morphology. ??No lesion. Patent hepatic vasculature with appropriately directed flow. Small volume abdominal ascites around the liver and in right lower quadrant. Manager Financial Reporting: [facility] ?? Transcribe Date/Time: Feb ??2024 ??1:53P [...] VASCULAR ULTRASOUND WITH DOPPLER IMAGING CLINICAL HISTORY: [place] liver biopsy 02/02/2025: Hepatic parenchyma with zone [...] normal, phasic wave form. Procedure Note Provider, [facility] - 02/19/2025 * * *Final Report* * * DATE OF EXAM: Feb 19 2025 1:47PM [facility] 1033 - US DOPPLER COMPLETE / PROCEDURE REASON: Other ascites * * * * Physician Interpretation * * * * EXAMINATION: LIVER VASCULAR ULTRASOUND WITH DOPPLER IMAGING CLINICAL HISTORY: [place] liver biopsy 02/02/2025: Hepatic parenchyma with zone [...] the liver and in right lower quadrant. Manager Financial Reporting[facility] Transcribe Date/Time: Feb 19 2025 1:53P Dictated by : LISBETH REBOLLAR MD This examination was interpreted and the report reviewed and electronically signed by: LONNIE ANN MD on Feb 19 2025 3:15PM EST Authorizing ProviderResult TypeResult StatusDonana maria Wall ELECTRIC MELT OPERATOR.CNPUS-PAMAFinal Result * (ABNORMAL) COMPLETE BLOOD COUNT (01/25/2025 11:00 AM EDT)ComponentValueRef RangeTest MethodAnalysis TimePerformed AtPathologist SignatureWBC8.053.70 - 11.00 k/uL01/25/2025 11:05 AM EDTNORTHCASCENSION BORGESS [facility] LABRBC3.75 (L)4.20 - 6.00 m/uL01/25/2025 11:05 AM EDTNORTMUN[facility] SDIAjpqqwkhpx28.2(L)13.0 - 17.0 g/dL01/25/2025 11:05 AM EDTNORTMUNSON HEALTH[facility] UOPQbpmdsrkmf37.9(L)39.0 - 51.0 %01/25/2025 11:05 AM EDT [facility] UGQICJ550.1(H)80.0 - 100.0 fL01/25/2025 11:05 AM EDTUNITED [facility] EDFIGV42.526.0 - 34.0 pg 01/25/2025 11:05 AM EDTUNITED [facility] UBDVWGH15.230.5 - 36.0 g/dL01/25/2025 11:05 AM EDST[facility] LABRDW-CV 14.711.5 - 15.0 %01/25/2025 11:05 AM [facility] Platelet Tpmmt494524 - 400 k/uL01/25/2025 11:05 AM [facility] LABMPV9.89.0 - 12.7 IN01/25/2025 11:05 AM EDSTONEWALL [facility] LABAbsolute nRBC<0.01<0.01 k/uL01/25/2025 11:05 AM EDT [facility] LABSpecimen (Source)Anatomical Location / LateralityCollection Method / VolumeCollection TimeReceived TimeBloodBLOOD SPECIMEN / UnknownVenipuncture / Kakbcjq3601/25/2025 11:00 AM EDT01/25/2025 11:00 AM EDT Narrative Authorizing ProviderResult TypeResult StatusVjuan francisco Meyers MDLABORATORYFinal ResultPerforming OrganizationAddressCity/State/ZIP CodePhone Number [facility] [address] [place] [address] * HEPATITIS C ANTIBODY IA WITH CONFIRMATION (01/08/2025 12:33 PM EDT)Component ValueRef RangeTest MethodAnalysis TimePerformed AtPathologist SignatureHep C Antibody YHZxviyuqcBjzenqhk20/26/2025 11:03 AM EDTCHENRY COUNTY HOSPITAL LABComment:The result suggests no evidence of infection with Hepatitis C virus. Should recent infection be suspected, repeat testing may be considered 4-6 weeks after this draw.Specimen (Source)Anatomical Location / Laterality Collection Method / VolumeCollection TimeReceived TimeBloodBLOOD SPECIMEN / UnknownVenipuncture / Kaoxiql1301/08/2025 12:33 PM EDT01/08/2025 12:33 PM EDT Narrative Authorizing ProviderResult TypeResult StatusAraseli Wall APRN.CNPLABORATORYFinal ResultPerforming OrganizationAddressCity/State/ZIP CodePhone Number [facility] [address] [place] [address], [place] * CHOLESTEROL BFL (05/18/2024 12:52 PM EST)ComponentValueRef RangeTest Method Analysis TimePerformed AtPathologist SignatureCholesterol, Body Aecfs25Zem Comment mg/dL05/19/2024 3:06 AM [facility] LABComment: SYNOVIAL FLUIDS: Synovial fluid cholesterol measurement [...] document C49-A. RAJEEV Bui: Clinical Laboratory Standards [place]; 2007. Body Fluid Type (Chol)Pleural Cavity, Right05/19/2024 3:06 AM [facility] LABSpecimen (Source)Anatomical Location / Laterality Collection Method / VolumeCollection TimeReceived TimeSterile Fluid/Body Fluid PLEURAL FLUID / UnknownNon Blood / Jmeavlh4205/18/2024 12:52 PM EST05/18/2024 11:34 PM EST Narrative Authorizing ProviderResult TypeResult StatusUdchapis Douglas MDLABORATORYFinal ResultPerforming OrganizationAddressCity/State/ZIP CodePhone Number [facility] [address] [facility] [address] [place] [id number], [place] * COLONOSCOPY (THERAPEUTIC) (04/28/2024 11:16 AM EST)Anatomical RegionLaterality ModalityOtherSpecimen (Source)Anatomical Location / LateralityCollection Method / VolumeCollection TimeReceived Time04/28/2024 11:16 AM EST Narrative 04/28/2024 11:59 AM EST [facility] Gastrointestinal Endoscopy Patient Name: Bryan Harris Procedure Date: 04/28/2024 11:16 AM Date of : 1950 Admit Type: Outpatient Age: 74 Room: [place] [address] Gender: Male Note Status: Finalized Attending MD: Vic Ponce MD, [id number] Procedure: ?Colonoscopy Indications: ?Chronic diarrhea Comorbidities ? Patient with chronic right pleural effusion unknown etiology/origin ? with N,V, diarrhea and weight loss. Providers: ?Vic Ponce MD, Nenita Almonte RN, [place] ?[place] RN, Adri Bradley RN (Assisting ?Nurse) Patient [...] physician, the nurse, the ?anesthesiologist and the shoe repair cobbler in the ?procedure room at 11:29 AM. [...] prior dose. Procedure Code(s): ?--- Professional --- ?66990, Colonoscopy, flexible; with biopsy, ?single or multiple Diagnosis Code(s): ?--- Professional --- ?K52.9, Noninfective gastroenteritis and colitis, ?unspecified CPT copyright 2020 [employer]. All rights reserved. The codes documented in this report are preliminary and upon business management intern review may be revised to meet current [...] Estimated blood loss: none. Authorizing ProviderResult TypeResult StatusMalargelia Terrell MDDIGESTIVE DISEASE Final Result from Last 3 Months or Most Recently Relevant to Health Maintenance Insurance Advance Directives TypeDate RecordedPatient RepresentativeExplanationAdvance Directive(s)11/12/2023 2:37 PM * Full Code (Latest Code Status on File) Date ActivatedDate InactivatedComments12/20/2023 10:18 PM12/26/2023 9:02 PMQuestion AnswerCommentsFull Code Order Discussed With:* Patient Care Teams Team MemberRelationshipSpecialtyStart [place] [address] [place] [address] PCP - GeneralFamily Medicine12/29/23 Jere Sales MD [address] [address] ReferringGastroenterology12/05/20 Calin Gotti DO [address] [place] [address] Internal Medicine10/16/23 Dawit Lorenz DO [address] [place] [address] Internal Ygwxqhii34/31/25
--- OUTSIDE RECORDS SUMMARY | 2025-05-07 11:33 | XMS_ITS | Encounter Summary ---
Author Organization [facility] Address [address] [place] [address] Care Team Providers Care Pbx Supervisor Name Role Phone Dawit Lorenz Primary Care Provider [phone] Encounter Details DateTypeDepartmentCare Team (Latest Contact Info)Mopthyrrdmc69/11/2025Travel Social History Tobacco UseTypesPacks/DayYears UsedDateSmoking Tobacco: NeverSmokeless Tobacco: NeverSex and Gender InformationValueDate RecordedSex Assigned at BirthNot on fileLegal VjgCrdd0408/29/2022 7:25 PM EDTGender IdentityNot on fileSexual OrientationNot on filedocumented as of this encounter Plan of Treatment DateTypeDepartmentCare Team (Latest Contact Info)Xyyfomzpexv99/19/2026 1:15 PM ESTOffice Visit [facility] [address] [place] [phone] Uzair Lubin, DPM [address] [place] [address] 08/16/2025 1:30 PM ESTOffice Visit [facility] [address] [place] [address] Arley Hamilton, DO [address] [place] [address] 08/31/2025 1:05 PM EDTOffice Visit [facility] [address] [place] [address] Bianca Bynum MD [address] [facility] [address] [place] [address] documented as of this encounter Visit Diagnoses Not on filedocumented in this encounter Care Teams Team MemberRelationshipSpecialtyStart DateEnd Date Dawit Lorenz DO [address] [place] [facility] [place] [address] PCP - GeneralInternal Medicine03/12/25documented as of this encounter
--- OUTSIDE RECORDS SUMMARY | 2025-05-07 11:33 | XMS_ITS | Encounter Summary ---
Author Organization [facility] Address [address] [place] [address] Care Team Providers Care Dope Weigh Operator Name Role Phone KelechiDawit Pepe MATA Primary Care Provider [phone] Encounter Details DateTypeDepartmentCare Team (Latest Contact Info)Eplabadwrfd49/11/2025Bamboo flowsheet [facility] [address] [place] [address] Uzair Lubin DPM [address] [place], [place] [phone] Social History Tobacco UseTypesPacks/DayYears UsedDateSmoking Tobacco: NeverSmokeless Tobacco: NeverSex and Gender InformationValueDate RecordedSex Assigned at BirthNot on fileLegal DsoIqmx8208/29/2022 7:25 PM EDTGender IdentityNot on fileSexual OrientationNot on filedocumented as of this encounter Plan of Treatment DateTypeDepartmentCare Team (Latest Contact Info)Hvxiswiybrl39/19/2026 1:15 PM ESTOffice Visit [facility] [address] [place] [address] Uzair Lubin DPReinaldo [address] [place], [place] [address] 08/16/2025 1:30 PM ESTOffice Visit [facility] [place] [address] [facility] [address] [place] [address] Arley Hamilton DO [address] [place] [address] 08/31/2025 1:05 PM EDTOffice Visit [facility] [address] [place] [address] Bianca Bynum MD [address] [place] [address] documented as of this encounter Visit Diagnoses Not on filedocumented in this encounter Care Teams Team MemberRelationshipSpecialtyStart DateEnd Date Dawit Lorenz DO [address] [facility] [place] [address] PCP - GeneralInternal Medicine03/12/25documented as of this encounter
--- OUTSIDE RECORDS SUMMARY | 2025-05-07 11:44 | XMS_ITS | CCD ---
Author Organization [facility] ion [facility] Care Team Providers Care Field Support Specialist Name Role Phone Ball, Yuli E Unavailable Ball, Yuli E Unavailable Karthik Calloway Unavailable Unavailable Primary Care Provider Unavailabl e Loida, Yuli E Primary Care Provider [phone] Loida, Yuli E Unavailable Karthik Calloway Unavailable Loida Yuli E Primary Care Provider Ball, Yuli [...] Care Provider Ball DO, Yuli E Unavailable [phone] Karthik Calloway MD Unavailable Unavail able Loida, Yuli Unavailable MARGIE EDOUARD Referring Unavailab MARGIE Buckner Admitting Unavailab le LOIDA, YULI E Primary Care Unavailable LOIDA, YULI E Primary Care Unavailable GRECIA FAITH Attending Unavailable LOIDA, YULI E Primary Care Unavailable MARGIE EDOUARD Attending Unavailab le LOIDA, YULI E Primary Care Unavailable NENA HUFF Attending Unavailable BALL, YULI E Primary Care Unavailable NENA HUFF Admitting Unavailable NENA HUFF Referring Unavailable BALL, YULI E Primary Care Unavailable MARGIE EDOUARD Attending Unavailab le BALL, YULI E Primary Care Unavailable MARGIE EDOUARD Attending Unavailab le BALL, YULI E Primary Care Unavailable MARGIE EDOUARD Referring Unavailab le STEGINSKRyann, MARGIE FERNANDEZ Admitting Unavailab le STEGINSKMARGIE Garzon Referring Unavailab le STEGINSKY, MARGIE FERNANDEZ Admitting Unavailab le BALL, YULI E Primary Care Unavailable MARGIE EDOUARD Referring Unavailab le STEGINSKY, MARGIE FERNANDEZ Admitting Unavailab le BALL, YULI E Primary Care Unavailable Samsa, DO Sintia P Attending Provider [phone] Samsa, Sintia P Admitting Unavailable Samsa, Sintia P Attending Unavailable Samsa, Sintia P Admitting Unavailable Samsa, Sintia P Attending Unavailable Samsa, Sintia P Admitting Unavailable Samsa, Sintia P Attending Unavailable Jere Sales Unavailable Loida DO Yuli E Primary Care Provider Samsa DO, Sintia P Unavailable ZAVARELLA RUMA Referring Unavailable BALL, YULI E Primary Care Unavailable JAS OSHEAE Attending Unavailable ZAVARELLA, RUMA Referring Unavailable BALL, [...] Primary Care Unavailable REMIGIO, SUDISH Referring Unavailable ARSENIOSTEPHANEDAARLINK Attending Unavailable ARSENIO, UDDALAK Referring Unavailable BALL, YULI E Primary Care Unavailable KATERINA BRAVO Referring Unavailable BALL, YULI E Primary Care Unavailable YEHUDA DIAL Consulting Unavailable ISAKOV, JOSE ANTONIO Admitting Unavailable ISAKOV, JOSE ANTONIO Attending Unavailable BALL, YULI E Primary Care Unavailable BALL, YULI E Primary Care Unavailable KATERINA BRAVO Referring Unavailable ARSENIO, UDDALAK Referring Unavailable ZAYOVANIELLA, RUMA Attending Unavailable BALL, YULI E Primary [...] Attending Unavailable GRIS, BRIEANNE Referring Unavailable BALL, UYLI E Primary Care Unavailable ARSENIO, UDDALAK Referring [...] Unavailable BALL, YULI E Primary Care Unavailable MALACHIXIOMARA Referring Unavailable BALL, YULI E Primary Care Unavailable XIOMARA LY Referring Unavailable ISAKOV, JOSE ANTONIO Primary Care Unavailable ISAKOV, JOSE ANTONIO Referring Unavailable BALL, YULI E Primary Care Unavailable MARY LYFANY Referring Unavailable Ball DO, Yuli Primary Care Provider [phone] Yehuda Boggs DO Attending Provider Bijal Kaur MD Attending Provider Pablito Hoffman MD Attending Provider Joselin Berman CMA Attending Provider Unavaila ble Yuli Mariscal DO Attending Provider Ball DO, Yuli E Primary Care Provider KATERINA CONTRERAS Attending Unavailable BALL, YULI E [...] Unavailable ISAKOV, JOSE ANTONIO Primary Care Unavailable MYRA ROSARIOL Admitting Unavailable MYRA ROSARIOL Attending Unavailable BALL, YULI E Primary Care Unavailable JAI MERLYN S Admitting Unavailable MACHUZAK MERLYN S Attending Unavailable BALL, YULI E Primary Care Unavailable NASEER, SUE Attending Unavailable BALL, YULI E Primary Care Unavailable BALL, YULI E Primary Care Unavailable STEFFEN MCCARTY Attending Unavailabl e BALL, YULI E Primary Care Unavailable ISAKOV, JOSE ANTONIO Referring Unavailable ISAKOV, JOSE ANTONIO Primary Care Unavailable SANDIE, MARLYN Referring Unavailable ISAKOV, JOSE ANTONIO Primary Care Unavailable ZABRINA SUAREZ Attending Unavailable SANDIE, MARLYN Referring Unavailable ISAKOV, JOSE ANTONIO Primary Care Unavailable BALL, YULI E Primary Care Unavailable XIOMARA LY Attending Unavailable ISAIAH MURRY Admitting UnavailISAIAH Wilkerson Attending Unavailabl e ISAKOV, JOSE ANTONIO Primary Care Unavailable TRISTON RIGGS Referring Unavailable [...] Primary Care Unavailable RIGGS, TRISTON Attending Unavailable ZAC MENDIOLA Referring Unavailable ISAKOV, JOSE ANTONIO Primary Care Unavailable MENDIOLA, ZAC Referring Unavailable ISAKOV, JOSE ANTONIO Primary Care Unavailable ZAC MENDIOLA Referring Unavailable ISAKOV, JOSE ANTONIO Primary Care Unavailable ISAKOV, JOSE ANTONIO Primary Care Unavailable XIOMARA LY Referring Unavailable BALL, YULI E Primary Care Unavailable ZABRINA SUAREZ Attending Unavailable XIOMARA LY Referring Unavailable BALL, YULI E Primary Care Unavailable RIGGS TRISTON Referring Unavailable ISAKOV, JOSE ANTONIO Primary Care Unavailable RIGGS, TRISTON Referring Unavailable ISAKOV, JOSE ANTONIO Primary Care Unavailable ISAKOV, JOSE ANTONIO Referring Unavailable ISAKOV, JOSE ANTONIO Primary Care Unavailable NASEER, SUE Referring Unavailable LOIDA, YULI E Primary Care Unavailable NASEER, SUE Referring Unavailable LOIDA, YULI E Primary Care Unavailable WILLOW RIGGSN Attending Unavailable WILLOW RIGGSN Referring Unavailable ISAKOV, JOSE ANTONIO Primary Care Unavailable ISAKOV, JOSE ANTONIO Referring Unavailable ISAKOV, JOSE ANTONIO Primary Care Unavailable Yuli Mariscal DO Primary Care Provider Yehuda Boggs DO Attending Provider Bijal Kaur MD Attending Provider Pablito Hoffman MD Attending Provider Joselin Berman CMA Attending Provider Unavaila Yuli Wilkins DO Attending Provider [phone] ANNE-MARIE BAJWA Attending Unavailable RAJI BYNUM Attending Unavailable JAMEL CHOWDARY Attending Unavailable RUSHERJAMEL Referring Unavailable RUSHER, JAMEL Doyle Attending Unavailable RUSHER, JAMEL A Attending Unavailable RUSHERJAMEL A Attending Unavailable RUSHERJAMEL A Attending Unavailable Allergies Allergy ClassificationReported Allergen(s)Allergy TypeDate of OnsetReaction(s) FacilityOpioid Agonists (1 source)traMADolDrug Rfwojco73-00-5328Mfzntl Status ChangeTr[facility] (20 sources)acetaminophen / oxyCODONE; Translations: [OXYCODONE-ACETAMINOPHEN] Propensity to adverse reactions to lagx45-66-3320Ltnpg (See Comments), Unknown [facility] Work Phone: (20 sources)traMADol; Translations: [TRAMADOL]Propensity to adverse reactions to lrcq63-25-7796Pqsiifzof Of Breath, Mental Status Change, UnknownOhio[facility] Work Phone: (1 source)traMADolDrug Znacumt81-67-9286[facility] (1 source)traMADolDrug Fvdnmso39-81-3803PhzpdlrgnMemorial Health [facility] (7 sources)Adhesive Tape-Silicones; Translations: [ADHESIVE TAPE-SILICONES]Drug Fvxnccipzkw08-04-8124PlktioiieldEnooadozv Clinic Medications Current Medications MedicationDrug Class(es)DatesSig (Normalized)Sig (Original)AeroChamber Mini Chamber - (1 source)Start: 00-22-7602TqpxUkhkgcu Mini Chamber - Use w/ MDI inhaled every 6 hours as needed for 30 days Jul, Udeaklqwt953410 60 actuat albuterol 0.09 mg/actuat metered dose inhaler (1 source)beta2-Adrenergic AgonistStart: 57-15-4590Anbteltrn Sulfate HFA 108 (90 Base) MCG/ACT 2 puffs Inhalation every 6 hours as needed for cough. Minimum bid for 30 days Jul, Activeallopurinol 300 mg oral tablet (20 sources)Xanthine Oxidase InhibitorStart: 01-24-2024 End: 39-33-3583mchr 1 tablet by mouth once dailyStart: 12-30-2023 End: 02-91-0173Hlrdpwxuxjs 300 mg tablet Discontinued 0 .ROUTE .COMPLEX 90 December 30, 2023 11:30am January 24, 2024 12:49pm TAKE 1 TABLET DAILYStart: 12-30-2023 End: 64-08-9866Ngtfqpjosfy 300 mg tablet Discontinued 0 .ROUTE .COMPLEX 90 December 30, 2023 12:30pm January 24, 2024 1:49pm TAKE 1 TABLET DAILYStart: 10-21-2020 End: 88-55-9984ueku 1 tablet by mouth once dailyAllopurinol 300 [...] sources)Platelet Aggregation Inhibitor, Nonsteroidal Anti-inflammatory Drug End: 33-97-1526ggbt 1 tablet by mouth at bedtimeaspirin 81 MG EC tablet Take 81 mg by mouth at bedtime. 03/12/2025 Discontinued (Discontinued by another clinician)atorvastatin 10 mg oral tablet (20 sources)HMG-CoA Reductase InhibitorStart: 08-05-2023 End: 42-50-5998Ugwdt: 10-21-2020 End: 78-98-1255kojv 1 tablet by mouth once dailyAtorvastatin 10 mg tablet Discontinued 10 MG PO Daily October 20, 2020 11:00pm August 05, 2023 7:58pm benzonatate 100 mg oral capsule (11 sources)Non-narcotic AntitussiveStart: 60-91-4613phbe 1 capsule by mouth three times dailyStart: 63-95-6186anlp 1 capsule by mouth every eight hours [...] morning . ActiveCalcium (20 sources)Phosphate Binder, Calciumcalcium qjt-dxg-N1-Zn-copy chief-kian 250 mg-40 mg- 125 unit-3.75mg tab Take by mouth. ActiveCALCIUM MAGNESIUM ZINC PO (13 sources)CALCIUM MAGNESIUM ZINC PO Take by mouth Activecalcium polycarbophil 625 mg oral tablet (18 sources)take 1 tablet by mouth once daily in the morningpolycarbophil (FIBERCON) 625 mg tablet Take 1 (one) tablet (625 mg total) by mouth every morning . Activecephalexin 500 mg oral capsule (20 sources)Cephalosporin AntibacterialStart: 10-30-2024 End: 38-98-0887dhpsbvoucx (Keflex) 500 MG capsule Three times daily 04/01/2025 ActiveStart: 39-08-0036cqpf 1 capsule by mouth every eight hoursCephalexin 500 MG 1 capsule Orally tid for 5 days Dec, Not-Taking/PRNStart: 07-11-2022 take 1 capsule by mouth twice daily as neededCephalexin 500 MG 1 capsule Orally twice daily for 7 days Jun, Not-Taking/PRNciprofloxacin 3 mg/ml ophthalmic solution (9 sources)Quinolone AntimicrobialStart: 43-36-2646akww 1 drop(s) into the eye(s) four times dailyciprofloxacin HCl (CILOXAN) 0.3 % ophthalmic solution INSTILL 1 DROP INTO AFFECTED EYE 4 TIMES DAILY 10/04/2022 Activecodeine phosphate 2 mg/ml / guaiFENesin 20 mg/ml oral solution (9 sources)Opioid AgonistStart: 68-06-6825jvyn 1 mL by mouth every six hours as needed for coughStart: 66-64-3495mxfo 10 mL by mouth every six hours as needed for coughguaiFENesin-Codeine 100-10 MG/5ML 10 mL as needed Orally every 6 hours as needed for cough for 7 days Jun, Activedexamethasone 1 mg/ml / tobramycin 3 mg/ml ophthalmic suspension (1 source)Aminoglycoside Antibacterial, CorticosteroidStart: 08-12-2024 End: 22-28-9128jtfeagggcw-dexAMETHasone (Tobradex) ophthalmic suspension Indications: Chalazion of left upper eyelid Administer 1 drop into the left eye in the morning and 1 drop at noon and 1 drop in the evening and 1 drop before bedtime. Do all this for 14 days. 5 mL 1 08/12/2024 08/26/2024 Active Dextromethorphan / guaiFENesin (13 sources)Uncompetitive C-udzsaz-R-aspartate Receptor Antagonist, Sigma-1 AgonistDextromethorphan-guaiFENesin (MUCINEX DM PO) Take by mouth Active diclofenac sodium 0.01 mg/mg topical gel (20 sources)Nonsteroidal Anti-inflammatory DrugStart: 95-85-1616ddwxpxmpmo sodium 1% (Voltaren Arthritis Pain) 1 % Gel Apply 2 (two) g topically 4 (four) times a day as needed for pain Apply 2 grams to affected area up to 4 times a day as needed for pain. . 300 g2 07/13/2024 ActiveStart: 07-09-2024 End: 09-35-7506zcifctumya sodium 1% (Voltaren) 1 % Gel Apply 2 (two) g topically 4 (four) times a day Apply 2 grams to affected area up to 4 times a day as needed PRN pain. . 900 g 2 07/09/2024 07/10/2024 Discontinued (Error)Start: 01-22-2024 End: 61-77-7412elfnfryznq (VOLTAREN) 1 % topical gel 01/22/2024 02/26/2025 DiscontinuedStart: 05-13-2023 End: 74-96-4104rogkvtbspy sodium (Voltaren) 1 % Gel Apply 2 (two) g topically 4 (four) times a day Apply 2 grams to affected area up to 4 times a day as needed PRN pain. . 900 g 2 05/13/2023 07/08/2024 Discontinued(Reorder (Suppress CancelRx Message to Pharmacy))Start: 08-30-2022 End: 25-56-7123asmrjzfouz sodium (Voltaren) 1 % Gel Apply 2 (two) g topically 4 (four) times a day Apply 2 grams to affected area up to 4 times a day as needed PRN pain. . 300 g 2 08/31/2022 Activedoxycycline monohydrate 100 mg oral tablet (15 sources)Tetracycline-class DrugStart: 54-02-6847fsah 1 tablet by mouth in the morningdoxycycline (Adoxa) 100 MG tablet Take 100 mg by mouth in the morning and 100 mg before bedtime. 04/08/2025 ActiveStart: 70-35-6208ffjc 1 capsule by mouth every twelve hoursDoxycycline Hyclate 100 MG 1 capsule Orally Twice a day for 7 days Jun, Not-Taking/PRNenteric contrast (will be provided with radiology test) (3 sources)Start: 10-21-2024 End: 25-26-0060shqhvsf contrast (will be provided with radiology test) Indications: Other ascites , Generalized abdominal pain For CT ENTEROGRAPHY W IVCON order Administer, As Directed One Time Only, via Oral, Rectal, both Oral and Rectal, Enteric Tube, Stoma or Indwelling Catheter, Enteric Contrast as designatedper enteric contrast guidelines. 1 each 10/21/2024 10/22/2024 Active Start: 04-20-2024 End: 79-77-1580yciwlof contrast (will be provided with radiology test) Indications: Diarrhea, unspecified type ForCT ENTEROGRAPHY W IVCON order Administer, As Directed One Time Only, via Oral, Rectal, both Oral and Rectal, Enteric Tube, Stoma or Indwelling Catheter, Enteric Contrast as designated per enteric contrast guidelines. 1 Each 04/20/2024 04/21/2024 Expirederythromycin 0.005 mg/mg ophthalmic ointment (4 sources)Macrolide, Macrolide AntimicrobialStart: 07-21-2024 End: 26-84-7739dxiytxssjgcc (ROMYCIN) 5 mg/gram (0.5 %) ophthalmic ointment Use 1 application in both eyes two times a day for 10 days. into affected eye(s). 3.5 g 07/21/2024 07/31/2024 Activefluorouracil 50 mg/ml topical cream (15 sources)Nucleoside Metabolic InhibitorStart: 76-65-9701eoofbvpviueP (EFUDEX) 5 % cream 07/12/2020 ActiveGUAIFENESIN/DEXTROMETHORPHAN (MUCINEX DM ORAL) (17 sources)GUAIFENESIN/DEXTROMETHORPHAN (MUCINEX DM ORAL) Take by mouth. 0 ActiveGUAIFENESIN/DEXTROMETHORPHAN (MUCINEX DM ORAL) Take by mouth. Active guaifenesin/dextromethorphan (MUCINEX DM ORAL) (20 sources)guaifenesin/dextromethorphan (MUCINEX DM ORAL) Take by mouth two times a day. Activeiv contrast (will be provided with radiology test) (20 sources)Start: 10-21-2024 End: 75-31-1852du contrast (will be provided with radiology test) [...] 1 each 10/21/2024 10/22/2024 ActiveStart: 04-20-2024 End: 59-59-5050qp contrast (will be provided with radiology test) [...] 1 Each 04/20/2024 04/21/2024 ExpiredStart: 03-17-2024 End: 81-39-1232ar contrast (will be provided with radiology test) [...] guidelines link. 1 Each 03/17/2024 05/18/2024 DiscontinuedStart: 15-83-2901fk contrast (will be provided with radiology test) [...] solution (9 sources)Nonsteroidal Anti-inflammatory Drug, Cyclooxygenase InhibitorStart: 84-46-8869foyb 2 drop(s) into the eye(s) twice dailyketorolac (ACULAR) 0.5 % ophthalmic solution INSTILL 2 DROPS INTO AFFECTED EYE TWICE DAILY 10/01/2022 Activeloratadine 10 mg oral tablet (20 sources)Loratadine (CLARITIN PO) Take 10 mg by mouth ActivemetOLazone 5 mg oral tablet (20 sources)Thiazide-like DiureticStart: 11-13-2024 End: 03-89-2731zvkz 1 tablet by mouth once dailymetOLazone (ZAROXOLYN) 5 mg tablet Indications: Anasarca Take 1 tablet by mouth once daily. 90 tablet 11/13/2024 ActiveStart: 08-21-2024 End: 05-67-2654seot 1 tablet by mouth once dailymetOLazone (ZAROXOLYN) 5 mg tablet Take 1 tablet by mouth once daily. 30 tablet 08/21/2024 09/04/2024 Kcsebfsmonhw62 hr mirabegron 50 mg extended release oral tablet (20 sources)beta3-Adrenergic AgonistStart: 01-26-2025 End: 08-13-9460bbdw 1 tablet by mouth once dailyStart: 12-15-2024 End: 19-74-3778gwna 1 tablet by mouth once daily in the eveningmirabegron (MYRBETRIQ) 50 mg Tb24 Indications: Urge incontinence Take 1 tablet by mouth every evening. 30 tablet 2 12/15/2024 01/14/2025 ExpiredMultiple Vitamins- Minerals (MULTIVITAMIN ADULTS 50+ PO) (13 sources)Multiple Vitamins-Minerals (MULTIVITAMIN ADULTS 50+ PO) Take [...] mouth every morning . ActiveOmega 3 (11 sources)[place] 3 ActiveOmega-3 Fatty Acids (4 sources)Start: 17-98-6861kzur 500 mg by mouth once dailyOmega-3 Fatty Acids Active 500 MG PO Daily August 13, 2023 1:00amOmega-3 Fatty Acids 500 mg capsule (3 sources)Start: 83-03-0621eybg 1 capsule by mouth once dailyStart: 08-13-2023 take 1 capsule by mouth once dailyOmega-3 Fatty Acids 500 mg capsule Active 500 MG PO Daily August 13, 2023 1:00am Complies with drug therapyStart: 34-90-0248zsac 1 capsule by mouth once dailyOmega-3 Fatty Acids 500 mg capsule Active 500 MG PO Daily August 13, 2023 1:00amondansetron 4 mg disintegrating oral tablet (3 sources)Serotonin-3 Receptor AntagonistStart: 08-02-5386rgga 1 tablet by mouth every eight hours as needed for nausea and vomitingpantoprazole 40 mg delayed release oral tablet (20 sources)Proton Pump InhibitorStart: 02-22-2025 End: 34-81-2486iftg 1 tablet by mouth once dailyStart: 07-23-2024 End: 22-16-1045zafa 1 tablet by mouth once dailyPantoprazole 40 mg tablet,delayed release (DR/EC) Discontinued 40 MG PO Daily 90 90 3 July 23, 2024 12:00am November 24, 2024 4:40pmStart: 04-28-2024 End: 14-41-4591xtwd 1 tablet by mouth twice dailypantoprazole DR (PROTONIX) 40 mg tablet Take 1 tablet by mouth two times a day. 180 tablet 04/28/2024 10/14/2024 Discontinued (Duplicate Entry)microencapsulated potassium chloride 20 meq extended release oral tablet (20 sources)Start: 12-15-2024 End: 60-24-8892mqyt 2 tablets by mouth three times dailypotassium chloride ER (KLOR-CON M20) 20 mEq tablet Indications: Hypokalemia Take 2 tablets by mouth three times a day. 540 tablet 12/15/2024 03/15/2025 ActiveStart: 09-04-2024 End: 74-42-4618arfv 2 tablets by mouth three times dailypotassium chloride (K- TAB) 20 mEq TbER Indications: Recurrent pleural effusion on right , Hypokalemia 2 tablets by ORAL/FEEDING TUBE route three times a day. 540 tablet 09/04/2024 12/03/2024 ExpiredStart: 05-20-2024 End: 90-63-6315pobp 2 tablets by mouth twice dailypotassium chloride ER (KLOR- CON M20) 20 mEq tablet Indications: Hypokalemia Take 2 tablets by mouthtwo times a day. 360 tablet 06/12/2024 09/04/2024 DiscontinuedStart: 01-15-2024 End: 70-24-8133nizd 1 tablet by mouth three times dailypotassium chloride ER (KLOR-CON) 20 mEq tablet Indications: Recurrent pleural effusion on right Take 1 tablet by mouth three times a day. 270 tablet 01/15/2024 04/14/2024 ActiveStart: 12-26-2023 End: 37-32-4100tidj 1 tablet by mouth twice dailypotassium chloride ER (KLOR- CON) 20 mEq tablet Take 1 tablet by mouth two times a day. 60 tablet 1 0 12/26/2023 01/15/2024 DiscontinuedStart: 11-29-2023 End: 55-93-5923wcqj 1 tablet by mouth once dailypotassium chloride [...] acetate 10 mg/ml ophthalmic suspension (9 sources)CorticosteroidStart: 77-63-4908wnjbfhxwVKJO acetate (PRED FORTE) 1 % ophthalmic suspension INSTILL 1 DROP INTO AFFECTED EYE INTO AFFECTED EYE 4 TIMES DAILY DIRECTED 10/01/2022 ActivepredniSONE 50 mg oral tablet (20 sources)Start: 92-16-5039qzjn 1 tablet by mouth once dailyStart: 08-13-2023 End: 02-95-9648Mvawj: 40-36-6557xvbnkgEVEH 20 MG 1 tablet Orally bid w/ food x 4 days then qd w/ food x 4 days for 8 days Jul, ActivequiNINE sulfate 324 mg oral capsule (20 sources)AntimalarialStart: 10-19-2024 End: 02-65-0110cvex 1 capsule by mouth twice dailyquiNINE 324 mg capsule Indications: Cramp and spasm Take 1 capsule by mouth two times a day. 180 cap roma 01/26/2025 ActiveStart: 09-24-2024 End: 81-20-5308vpsq 1 capsule by mouth every twelve hoursquiNINE 324 mg capsule Take 1 capsule by mouth every 12 hours. 09/24/2024 10/19/2024 DiscontinuedStart: 07-21-2024 End: 35-03-1867lzdg 1 capsule by mouth twice dailyquiNINE 324 mg capsule Indications: Muscle cramps Take 1 capsule by mouth two times a day. 60 capsule 2 07/21/2024 08/20/2024 Activetake 1 capsule by mouth every eight hoursquiNINE (Qualaquin) 324 MG capsule Take 324 mg by mouth every 8 (eight) hours Active spironolactone 100 mg oral tablet (20 sources)Aldosterone AntagonistStart: 42-74-2142dehw 1 tablet by mouth once dailyStart: 12-07-2024 End: 29-69-3976nqsd 1 tablet by mouth once dailySpironolactone 25 mg tablet Discontinued 25 MG PO Daily 90 90 3 January 22, 2025 12:05pm April 09, 2025 4:06pmtorsemide 20 mg oral tablet (20 sources)Loop DiureticStart: 62-23-2544kyxu 1 tablet by mouth once daily in the morningStart: 05-13-2024 End: 33-94-3376madz 1 tablet by mouth once dailytorsemide (DEMADEX) 100 mg tablet Indications: Recurrent pleural effusion on right , Anasarca Take 1 tablet by mouth once daily. 90 tablet 1 11/13/2024 ActivetraZODone hydrochloride 100 mg oral tablet (20 sources)Serotonin Reuptake InhibitorStart: 09-04-2024 End: 58-21-7476zcwy 1 tablet by mouth once daily at bedtimetraZODone (DESYREL) 100 mg tablet Indications: Chronic insomnia Take 1 tablet by mouth daily at bedt christine. 30 tablet 2 09/04/2024 10/04/2024 Activevit A-vit C-vit M-ztsk-ppeixm (EYE VITAMIN AND MINERALS) 7,160-113-100 sogj-lc-vtbb Tab (4 sources)take 1 tablet by mouth once daily in the morningvit A-vit C-vit M-obmd-symssw (EYE VITAMIN AND MINERALS) 7,160-113-100 zjry-ll-mtiu Tab Take 1 tablet by mouth every morning . 0 Activevit A-vit C-vit P-ghuq-pxeomd 7,160-113-100 ukad-wt-vibc Tab (12 sources)take 1 tablet by mouth once daily in the morningvit A-vit C-vit P-vnfu-kvqcvt 7,160-113-100 jhrb-tg-xpav Tab Take 1 tablet by mouth every morning .Activetake 1 tablet by mouth once daily in the morningvit A-vit C-vit C-inds-vxqdyf 7,160-113-100 opvs-if-ivyg Tab Take 1 tablet by mouth every morning .0 ActiveVitamin C Oral (1 source)take 1 tablet by mouth once daily in the morningASCORBATE CALCIUM (VITAMIN C ORAL) Take 1 tablet by mouth every morning . ActiveVit A 7,160 Unit- Vit C 113 Mg-Vit E 100 Ccuz-Titi-Gzmalq Tablet (2 sources)take 1 tablet by mouth once daily in the morningvit A-vit C-vit U-hbri-umkmxh (EYE VITAMIN AND MINERALS) 7,160-113-100 laqr-he-rwsw Tab Take 1 tablet by mouth every morning . Activezolpidem tartrate 5 mg oral tablet (6 sources)gamma-Aminobutyric Acid-ergic AgonistStart: 12-02-2023 End: 12-02-2023 Completed/Discontinued Medications MedicationDrug Class(es)DatesSig (Normalized)Sig (Original)acetaminophen 500 mg oral tablet (20 sources)Start: 11-23-2023 End: 59-22-3549jktn 2 tablets by mouth every six hoursacetaminophen (TYLENOL) 500 mg tablet Take 2 tablets by mouth every 6 hours. 11/23/2023 05/18/2024 D iscontinuedalbuterol 0.833 mg/ml / ipratropium bromide 0.167 mg/ml inhalation solution (20 sources)Anticholinergic, beta2-Adrenergic AgonistStart: 11-23-2023 End: 61-15-6289vunk 3 mL by inhalation every six hours as neededipratropium- albuterol (DUONEB) 0.5 mg-3 mg(2.5 mg base)/3 mL nebu Inhale 3 mL as instructed every 6hours as needed for wheezing/shortness of breath. 360 mL 11/23/2023 05/13/2024 Discontinuedamoxicillin 500 mg oral capsule (20 sources)Penicillin-class AntibacterialStart: 01-28-2024 End: 74-73-8318behaazonskm (AMOXIL) 500 mg capsule 01/28/2024 11/19/2024 DiscontinuedStart: 32-12-9142bumvretxxsp (AMOXIL) 500 MG capsule Take 4 capsules one hour prior to dental procedure/cleaning . 4capsule 1 01/28/2024 Active amoxicillin 875 mg / clavulanate 125 mg oral tablet (20 sources)Penicillin-class AntibacterialStart: 08-19-2023 End: 27-66-9100vajm 1 tablet by mouth every twelve hoursAmoxicillin-Pot Clavulanate 875-125 mg tablet Discontinued 1 TAB PO Every 12 hours 20 10 0 March 09, 2025 11:00pm April 01, 2025 8:00amtake 1 tablet by mouth in the morningamoxicillin-clavulanate (Augmentin) 875-125 MG tablet Take 1 tablet by mouth in the morning and 1 tablet before bedtime. Activeamylase 508517 unt / lipase 64429 unt / protease 470604 unt delayed release oral capsule (9 sources)Start: 06-12-2024 End: 94-48-1399ieqb 2 capsules by mouth three times daily at mealtime wcatgx-pjmliced-nnsuslu (CREON) 36,000-114,000- 180,000 unit delayed release capsule Indications: Exocrine pancreatic insufficiency Take 2 capsules by mouth three times a day with meals. 200 capsule 1 06/12/2024 07/21/2024 Discontinued azithromycin 250 mg oral tablet (20 sources)Macrolide AntimicrobialStart: 03-11-2024 End: 41-86-2189Alkoxdpvofga 250 mg tablet Discontinued 250 MG PO As Directed 6 5 0 July 14, 2024 5:10pm 2024 1:30pmStart: 18-12-0011Cvnthuobqlvr 250 MG as directed Orally daily for 5 days May, Not-Taking/PRNbudesonide 3 mg delayed release oral capsule (20 sources)CorticosteroidStart: 04-30-2024 End: 35-05-2411pplu 3 capsules by mouth once daily, then [...] mg oral tablet (20 sources)Start: 12-26-2023 End: 68-00-3836ibgz 1 tablet by mouth twice dailycalcium carbonate (OS-ELIZABETH 500) 500 mg calcium (1,250 mg) tablet Take 1 tablet by mouth two times a day. 180 tablet 12/26/2023 05/13/2024 NlxknxlsddzcESWWRIR-YHJGWNTEU-ANBS ORAL (18 sources) End: 89-27-9510NGINSWL-MAGNESIUM-ZINC ORAL Take by mouth. 05/18/2024 RlhdngnwiproCBGTXAL-FVTTVYIQI-PXSQ ORAL Take by mouth. Activefamotidine 20 mg oral tablet (20 sources)Histamine-2 Receptor AntagonistStart: 02-22-2025 End: 82-52-6890kdut 1 tablet by mouth once daily at bedtimeFamotidine 20 mg tablet Discontinued 20 MG PO Daily at bedtime 30 30 February 22, 2025 3:23pm February 22, 2025 3:26pmStart: 11-13-2024 End: 72-50-7306lzqz 1 tablet by mouth twice dailyFamotidine 20 mg tablet Discontinued 20 MG PO Twice daily 60 30 0 November 23, 2024 11:00pm February 22, 2025 3:24pmfluticasone propionate 0.05 mg/actuat metered dose nasal spray (5 sources)CorticosteroidStart: 12-26-2023 End: 23-14-2980tqtq 2 spray(s) nasal route once daily at bedtimefluticasone (FLONASE) 50 mcg/actuation nasal spray Use 2 Sprays in each nostril daily at bedtime. 16 g 1 12/26/2023 01/15/2024 DiscontinuedFluticasone Propion-Salmeterol (20 sources)Corticosteroid, beta2-Adrenergic AgonistStart: 08-08-2023 End: 76-38-8206iowh 1 dose by mouth every twelve hoursFluticasone Propion- Salmeterol 100-50 mcg/dose blister with device Discontinued 0 .ROUTE .COMPLEX 60 1 August 08, 2023 9:43am August 13, 2023 11:21am INHALE 1 DOSE BY MOUTH EVERY 12 HOURSStart: 08-08-2023 End: 83-24-8460egdh 1 dose by mouth every twelve hoursFluticasone Propion- Salmeterol 100-50 mcg/dose blister with device Discontinued 0 .ROUTE .COMPLEX 60 1 August 08, 2023 10:43am August 13, 2023 12:21pm INHALE 1 DOSE BY MOUTH EVERY 12 HOURSStart: 08-08-2023 End: 93-15-0530qryz 1 dose by mouth every twelve hoursFluticasone Propion- Salmeterol 100-50 mcg/dose blister with device Discontinued 0 .ROUTE .COMPLEX 60 August 08, 2023 10:43am August 13, 2023 12:21pm INHALE 1 DOSE BY MOUTH EVERY 12 HOURSStart: 08-08-2023 End: 07-16-5080jdnv 1 dose by mouth every twelve hoursFluticasone Propion- Salmeterol Discontinued 0 .ROUTE .COMPLEX 60 August 08, 2023 10:43am Februar 2023 12:21pm INHALE 1 DOSE BY MOUTH EVERY 12 HOURSStart: 08-07-2023 End: 72-61-9155rrxw 1 puff(s) by inhalation every twelve hoursFluticasone Propion-Salmeterol 115-21 mcg/actuation HFA aerosol inhaler Discontinued 2 PUFF INHALATION Every 12 hours August 07, 2023 9:58am August 08, 2023 9:43amStart: 08-07-2023 End: 19-74-3427ldzr 1 puff(s) by inhalation every twelve hoursFluticasone Propion-Salmeterol 115-21 mcg/actuation HFA aerosol inhaler Discontinued 2 PUFF INHALATION Every 12 hours August 07, 2023 10:58am August 08, 2023 10:43amStart: 08-07-2023 End: 72-55-3964duep 1 puff(s) by inhalation every twelve hoursFluticasone Propion-Salmeterol 115-21 mcg/actuation HFA aerosol inhaler Discontinued 2 PUFF INHALATION Every 12 hours 06 15August 07, 2023 10:58am August 08, 2023 10:43amStart: 08-07-2023 End: 74-25-7601trne 1 puff(s) by inhalation every twelve hoursFluticasone Propion-Salmeterol Discontinued 2 PUFF INHALATION Every 12 hours 06 15August 07, 2023 10:58am August 08, 2023 10:43amStart: 08-06-2023 End: 47-99-5799kkdn 1 puff(s) by inhalation every twelve hoursFluticasone Propion-Salmeterol 115-21 mcg/actuation HFA aerosol inhaler Discontinued 2 PUFF INHALATION Every 12 hours August 06, 2023 12:00am August 07, 2023 9:58amStart: 08-06-2023 End: 70-41-6432ylwl 1 puff(s) by inhalation every twelve hoursFluticasone Propion-Salmeterol 115-21 mcg/actuation HFA aerosol inhaler Discontinued 2 PUFF INHALATION Every 12 hours August 06, 2023 1:00am August 07, 2023 10:58amStart: 08-06-2023 End: 71-22-2267hhng 1 puff(s) by inhalation every twelve hoursFluticasone Propion-Salmeterol 115-21 mcg/actuation HFA aerosol inhaler Discontinued 2 PUFF INHALATION Every 12 hours 06 15August 06, 2023 1:00am August 07, 2023 10:58amStart: 08-06-2023 End: 43-59-4304zwmx 1 puff(s) by inhalation every twelve hoursFluticasone Propion-Salmeterol Discontinued 2 PUFF INHALATION Every 12 hours 06 15August 06, 2023 1:00am August 07, 2023 10:58amfurosemide 40 mg oral tablet (20 sources)Loop DiureticStart: 12-27-2023 End: 07-11-1329xgfk 1 tablet by mouth once dailyfurosemide (LASIX) 80 mg tablet Indications: Recurrent pleural effusion on right Take 1 tablet by mouth once daily. 90 tablet 02/12/2024 05/13/2024 DiscontinuedStart: 12-26-2023 End: 25-02-4264zjnn 1 tablet by mouth once daily in the eveningfurosemide (LASIX) 40 mg tablet Indications: Recurrent pleural effusion on right Take 1 tablet by mouth once daily. At 2 pm 90 tablet 02/12/2024 05/13/2024 Discontinued Start: 11-29-2023 End: 66-32-3467ukeb 1 tablet by mouth once dailyfurosemide (LASIX) 20 mg tablet Take 1 tablet by mouth once daily for 5 days. 5 tablet 0 Discontinuedhydroxychloroquine sulfate 200 mg oral tablet (20 sources)Antimalarial, Antirheumatic AgentStart: 02-12-2024 End: 62-66-5054gafz 1 tablet by mouth twice dailyhydrOXYchloroQUINE (PLAQUENIL) 200 mg tablet Indications: Recurrent pleural effusion on right Take 1 tablet by mouth two times a day. 180 tablet 02/12/2024 05/13/2024 DiscontinuedStart: 12-27-2023 End: 36-04-8761zhbk 1 tablet by mouth oncehydrOXYchloroQUINE (PLAQUENIL) 200 mg tablet Indications: Recurrent pleural effusion on right , Pleural effusion Take 1 tablet by mouth every afternoon. 90 tablet 02/12/2024 02/12/2024 Discontinued lidocaine 0.04 mg/mg medicated patch (11 sources)Antiarrhythmic, Amide Local AnestheticStart: 11-24-2023 End: 34-07-2194glqcp 1 dose transdermal route once dailylidocaine (SALONPAS) 4 % patch Apply 1 Patch as directed once daily. 0 11/24/2023 12/20/2023 Discontinued losartan potassium 25 mg oral tablet (20 sources)Angiotensin 2 Receptor BlockerStart: 12-23-2023 End: 70-60-4951qwaclwam (COZAAR) 25 mg tablet Take 1 tablet by mouth once daily. Patient should start on December 23, 2023. 0 12/23/2023 12/26/2023 DiscontinuedStart: 83-09-9114zpbvsotc (COZAAR) 25 mg tablet Take 1 tablet by mouth once daily. Patient should start on December 23, 2023. 0 12/23/2023 SuspendedStart: 12-23-2023 losartan (COZAAR) 25 mg tablet Take 1 tablet by mouth once daily. Patient should start on December 23, 2023. 0 12/23/2023 ActiveStart: 38-57-7534frvklvcg (COZAAR) 25 mg tablet Take 1 tablet by mouth once daily. Patient should start on December 22 24. 0 12/23/2023 ActiveStart: 90-79-8842rdoniesx (COZAAR) 25 mg tablet Take 1 tablet by mouth once daily. Patient should start on December 23, 2023. 0 12/23/2023 ActiveStart: 71-87-2048farlandw (COZAAR) 25 mg tablet Take 1 tablet by mouth once daily. Patient should start on December 23, 2023. 0 12/23/2023 ActiveStart: 04-90-6882qdqgrnac (COZAAR) 25 mg tablet Take 1 tablet by mouth once daily. Patient should start on December 23, 2023. 0 12/23/2023 ActiveStart: 12-23-2023 losartan (COZAAR) 25 mg tablet Take 1 tablet by mouth once daily. Patient should start on December 23, 2023. 0 12/23/2023 ActiveStart: 15-63-7728pspqolpe (COZAAR) 25 mg tablet Take 1 tablet by mouth once daily. Patient should start on December 22 24. 0 12/23/2023 ActiveStart: 2023 End: 46-18-5378xmbg 1 tablet by mouth once dailyLosartan 25 mg tablet Discontinued 25 MG PO Daily August 13, 2023 12:00am November 24, 2024 4:40pm magnesium oxide 400 mg oral tablet (20 sources)Start: 12-26-2023 End: 58-89-1005kppb 1 tablet by mouth twice dailymagnesium oxide (MAG-OX) 400 mg (241.3 mg magnesium) tablet Take 1 tablet by mouth two times a day.60 tablet 01/27/2024 05/13/2024 Discontinuedmeloxicam 15 mg oral tablet (20 sources)Nonsteroidal Anti-inflammatory DrugStart: 07-20-2020 End: 58-94-7630rnuc 1 tablet by mouth once dailyMeloxicam 15 mg tablet Discontinued 15 MG PO Daily August 13, 2023 12:00am November 24, 2024 4:40pm Start: 02-25-2017 End: 07-04-6054kxgc 1 tablet by mouth twice daily as needed for painmeloxicam (MOBIC) 7.5 MG tablet Take 1 (one) tablet (7.5 mg total) by mouth 2 (two) times a day as needed for pain. 180 tablet 3 02/25/2017 02/25/2018 ActiveStart: 01-29-2017 End: 30-60-6488qhuw 0.5 tablet by mouth twice dailymeloxicam (MOBIC) 15 MG tablet Indications: Status post total right knee replacement Take 0.5 (one-half) tablet (7.5 mg total) by mouth 2 (two) times a day. 180 tablet 3 01/29/2017 01/29/2018 Active End: 32-37-0249gzez 1-2 tablets by mouth once daily as neededmeloxicam (MOBIC) 7.5 MG tablet Take 7.5 mg by mouth daily 1-2 tabs prn . 0 07/20/2020 Discontinuedmetoprolol tartrate 25 mg oral tablet (12 sources)beta-Adrenergic BlockerStart: 11-23-2023 End: 26-64-7431mbbh 1 tablet by mouth every twelve hoursmetoprolol tartrate, short acting, (LOPRESSOR) 25 mg tablet Take 1 tablet by mouth every 12 hours. M etoprolol was prescribed to prevent atrial fibrillation after thoracic surgery. Stop this medication after 30 days. 60 tablet 0 11/23/2023 12/26/2023 Discontinuedmontelukast 10 mg oral tablet (5 sources)Leukotriene Receptor AntagonistStart: 12-27-2023 End: 17-60-8464rufk 1 tablet by mouth once dailymontelukast (SINGULAIR) 10 mg tablet Take 1 tablet by mouth once daily. 30 tablet 1 12/27/2023 01/15/2024 Discontinuedmupirocin 0.02 mg/mg topical ointment (18 sources)RNA Synthetase Inhibitor AntibacterialStart: 11-24-2024 End: 53-27-5944Nxplmeziu 2 % ointment Discontinued 1 APPLIC TOPICAL Twice daily 22 30 5 December 17, 2024 4:57pm March 10, 2025 4:41pmStart: 11-12-2023 mupirocin (BACTROBAN) 2 % ointment Apply a small amount in each nostril using a cotton swab twice the day before surgery and once the morning of surgery. 22 g 0 11/12/2023 ActiveStart: 63-99-4838Zuhlfnqhc 2 % 1 application Externally Twice a day for 7 days Jun, Not-Taking/PRNNebulizer and Compressor For Neb (INNOSPIRE ESSENCE) (12 sources)Start: 11-23-2023 End: 22-96-6196Arzynpjqz and Compressor For Neb (INNOSPIRE ESSENCE) 1 Each four times daily. 1 Each 0 11/23/2023 12/26/2023 DiscontinuedStart: 11-23-2023 End: 33-69-2734Wguzjknga and Compressor For Neb (INNOSPIRE ESSENCE) 1 Each four times daily. 1 Each 0 11/23/2023 02/21/2024 SuspendedStart: 11-23-2023 End: 57-87-2343Qsrednkpe and Compressor For Neb (INNOSPIRE ESSENCE) 1 Each four times daily. 1 Each 0 11/23/2023 02/21/2024 Activeomeprazole 40 mg delayed release oral capsule (20 sources)Proton Pump InhibitorStart: 07-20-2024 End: 66-41-8253dinj 1 capsule by mouth once dailyOmeprazole 40 mg capsule,delayed release(DR/EC) Discontinued 40 MG PO Daily 90 90 3 July 20, 2024 9:20pm July 23, 2024 9:20pmStart: 12-12-2023 End: 52-95-2662Zhnbwguvdj 20 mg capsule,delayed release(DR/EC) Discontinued 0 .ROUTE .COMPLEX 90 3 December 1144:53pm July 20, 2024 9:21pm TAKE 1 CAPSULE DAILY ON AN EMPTY STOMACH, FOLLOWED IN 30 MINUTES BY BREAKFASTStart: 28-54-6834vgqe 1 capsule by mouth once daily as neededOmeprazole 20MG Omeprazole 20MG, 1 (one) Capsule Capsule daily on empty stomach followed in 30 minutes by bkfst # 0, 12/22/2021, No Refill. Active Oral daily on empty stomach followed in 30 minutes by bkt for 0 *Pick strength-form from [facility] for eRX* Dec, Not-Taking/PRNStart: 09-28-2020 End: 15-77-5012qkao 1 capsule by mouth once dailyOmeprazole 20 mg capsule,delayed release(DR/EC) Discontinued 20 MG PO Daily October 20, 2020 11:00pm December 12, 2023 8:40amStart: 80-26-8462ubve 2 capsules by mouth twice daily omeprazole (PRILOSEC) 20 mg capsule Take 40 mg by mouth two times a day. 0 09/28/2020 ActiveOmeprazole 20 mg capsule,delayed release(DR/EC) (1 source)Start: 12-12-2023 End: 04-43-9254Mvwhzzqvrr 20 mg capsule,delayed release(DR/EC) Discontinued 0 .ROUTE .COMPLEX 90 December 12, 2023 5:53pm July 20, 2024 10:21pm TAKE 1 CAPSULE DAILY ON AN EMPTY STOMACH, FOLLOWED IN 30 MINUTES BYBREAKFASToxyCODONE hydrochloride 5 mg oral tablet (4 sources)Opioid AgonistStart: 11-23-2023 End: 02-30-0240lqxv 1 tablet by mouth every six hours as neededoxyCODONE IR (ROXICODONE) 5 mg immediate release tablet Indications: Pleural effusion , Postoperative pain Take 1 tablet by mouth every 6 hours as needed for up to 7 days. 28 tablet 0 11/23/2023 11/30/2023 Expiredpolyethylene glycol 3350 72668 mg powder for oral solution (4 sources)Osmotic LaxativeStart: 11-24-2023 End: 75-01-0367roikvswazhql glycol 3350 17 gram packet Take 1 Packet by mouth once daily for 7 days. Dissolve dosein 4 - 8 ounces of liquid and take as directed. 7 Packet 0 11/24/2023 12/01/2023 ExpiredraNITIdine 300 mg oral tablet (18 sources)Histamine-2 Receptor AntagonistStart: 10-21-2020 End: 24-53-6310qcwj 1 tablet by mouth once dailyRanitidine Hcl 300 mg Tablet Discontinued 300 MG PO Daily October 20, 2020 11:00pm August 1320230617:21am Ranitidine HCl Activesildenafil 100 mg oral tablet (11 sources)Phosphodiesterase 5 InhibitorStart: 55-35-1506Sthubmpbxo Citrate 100MG Sildenafil Citrate 100MG, 1 (one) Tablet 1 PO PRN ED # 6, 01/03/2022, Ref. x5. Active Oral 1 PO PRN ED for 30 *Pick strength-form from [facility] for eRX* Dec, Not-Taking/PRNsucralfate 1000 mg oral tablet (16 sources)Aluminum ComplexStart: 12-15-2024 End: 12-30-0112zkvw 1 tablet by mouth four times dailysucralfate (CARAFATE) 1 gram tablet Indications: Hiatal hernia Take 1 tablet by mouth four times daily. 120 tablet 2 12/15/2024 01/14/2025 ExpiredStart: 04-28-2024 End: 22-87-0442cmba 1 tablet by mouth twice dailysucralfate (CARAFATE) 1 gram tablet Take 1 tablet by mouth two times a day. 60 tablet 04/28/2024 05/28/2024 Expiredtamsulosin hydrochloride 0.4 mg oral capsule (20 sources)alpha-Adrenergic BlockerStart: 10-21-2020 End: 60-84-8497jxdi 1 capsule by mouth once dailyTamsulosin 0.4 mg Capsule Discontinued 0.4 MG PO Daily October 20, 2020 11:00pm November 24, 2024 4:42pm Problems Active Problems Problem ClassificationProblemDateDocumented DateEpisodic/ChronicAbdominal hernia (2 sources)Hiatal hernia; Translations: [Diaphragmatic hernia without obstruction or gangrene]45-91-4024BcjnptifDbsgvdkg foot deformities (6 sources)Toe joint rigid; Translations: [Hallux rigidus, left foot]Onset: 79-14-0498IfzbuuuPcwww bronchitis (1 source)Acute bronchitis due to other specified organismsEpisodicCataract (19 sources)After-cataract of bilateral eyes; Translations: [Other secondary cataract, bilateral]Onset: 629905-59-4023RbonmwgOawjesp kidney disease (11 sources)Chronic kidney disease stage 3A ; Translations: [Stage 3a chronic kidney disease (HCC)]Onset: 724459-69-7680GuoxrzvAmfmmbf kidney disease (2 sources)Chronic kidney disease; Translations: [Stage 3a chronic kidney disease (HCC)]Onset: 91-90-4883Rswqxgn obstructive pulmonary disease and bronchiectasis (2 sources)Unspecified chronic bronchitis; Translations: [Chronic bronchitis] Onset: 954961-56-9829RghqwcyNtfrcjz ulcer of skin (8 sources)Pressure ulcer of other site, stage 2; Translations: [Pressure ulcer, other site]25-73-1763GuelfhtHfiomwklui and other anemia (7 sources)Anemia; Translations: [Anemia, unspecified]66-51-4668Jyeahdso Deficiency and other anemia (1 source)Anemia, unspecified; Translations: [Anemia, unspecified type]Onset: 40-57-2709EgbrgwsrQizjjulr of white blood cells (18 sources)Leukocytosis; Translations: [Elevated white blood cell count, unspecified]Onset: 452753-81-3963PrcbcuhAbafmdhow of lipid metabolism (20 sources)Hyperlipidemia; Translations: [Hyperlipidemia, unspecified]Onset: 019430-21-0810BmftxzzXarruvkubzoawx and diverticulitis (11 sources)Diverticulosis of sigmoid colon; Translations: [Diverticulosis of large intestine without perforation or abscess without bleeding]Chronic Esophageal disorders (20 sources)Gastroesophageal reflux disease; Translations: [Gastro-esophageal reflux disease without esophagitis]Onset: 425115-65-7805ZyukqcdRfhjwajfv hypertension (20 sources)Essential hypertension; Translations: [Essential (primary) hypertension]Onset: 11-68-0799AdpalmqTgadqrqwx and duodenitis (1 source)Chronic gastritis; Translations: [Unspecified chronic gastritis without bleeding]34-44-3736FeopfnlAcaduugqzhkyifsy hemorrhage (20 sources)Blood-tinged feces; Translations: [Melena]86-14-1679OadgvhtaZrsdqfb on above:Problem List clean-up per request of Phys. EHR CmteGenitourinary symptoms and ill-defined conditions (2 sources)Urge incontinence of urine; Translations: [Urge incontinence] 10-78-2937HeptseiNxwhc valve disorders (4 sources)Cardiac murmur, unspecified; Translations: [Undiagnosed cardiac murmurs]33-32-6725MuaxpoyoJgwneiydhsy (11 sources)Hemorrhoids; Translations: [Unspecified hemorrhoids]Episodic Hyperplasia of prostate (11 sources)Lower urinary tract symptoms due to benign prostatic hypertrophy; Translations: [Benign prostatic hyperplasia with lower urinary tract symptoms] ChronicMalaise and fatigue (2 sources)Other fatigue; Translations: [Fatigue]EpisodicMiscellaneous mental health disorders (4 sources)Chronic insomnia; Translations: [Psychophysiologic insomnia] 23-17-8444UxweyrrLjllbzj (1 source)Onychomycosis due to dermatophyte ; Translations: [Tinea unguium] 52-32-9212KapwazmlTqksys and vomiting (15 sources)Nausea and vomiting; Translations: [Nausea with vomiting, unspecified]Onset: 174259-20-8673TqwmxlggXfhtagffuhrvb gastroenteritis (20 sources)Lymphocytic colitis; Translations: [Other and unspecified noninfectious gastroenteritis and colitis]Onset: 717419-49-7853McjrlpjLarz wounds of head; neck; and trunk (1 source)Laceration without foreign body of scalp, initial encounterEpisodic Osteoarthritis (20 sources)Unilateral primary osteoarthritis, left knee; Translations: [Osteoarthritis of knee]Onset: 646343-04-5483ZlmwkcxKruianwxoasdpd (6 sources)Osteoarthritis of left knee joint; Translations: [Osteoarthritis of left knee]Onset: Other aftercare (1 source)Other group home (current) drug therapyEpisodicOther aftercare (5 sources)Surgical follow-up; Translations: [Encounter for follow-up examination after completed treatment for conditions other than malignant neoplasm]12-62-4992EpimanvmKfsvq aftercare (2 sources)Follow-up status; Translations: [Encounter for follow-up examination after completed treatment for conditions other than malignant neoplasm] 28-25-5427WfcskguzSiary circulatory disease (1 source)Elevated blood-pressure reading, without diagnosis of hypertension EpisodicOther circulatory disease (1 source)Orthostatic hypotension; Translations: [Orthostatic hypotension] 74-67-9834AoaczlupNfamx connective tissue disease (20 sources)History of total knee arthroplasty; Translations: [Presence of artificial knee joint, bilateral]Onset: 647980-33-9412RkzqtwiJzkih connective tissue disease (1 source)Metatarsalgia of left foot; Translations: [Metatarsalgia, left foot] 92-95-9227BkrsfubfLsyhv connective tissue disease (2 sources)Cramp; Translations: [Cramp and spasm]85-14-8413GtukagkxOjwkg connective tissue disease (4 sources)Spasm; Translations: [Cramp and spasm]11-78-0018BoryokreIzopk connective tissue disease (8 sources)Pain of toe of left foot; Translations: [Pain in left toe(s)] 43-19-1445FpfcxkebUdqqo connective tissue disease (2 sources)Pain in toe; Translations: [Pain in right toe(s)]88-98-4706Kikpbdll Other diseases of veins and lymphatics (2 sources)Disorder of vein of lower extremity; Translations: [Venous insufficiency (chronic) (peripheral)]61-55-8462QuuphtavKhohl ear and sense organ disorders (3 sources)Impacted cerumen; Translations: [Impacted cerumen, unspecified ear] 78-04-7442NhpeuteqCjnvc gastrointestinal disorders (17 sources)Dysphagia; Translations: [Dysphagia, unspecified]34-34-4729Rpyzsrfn Comment on above:Problem List clean-up per request of Phys. EHR CmteOther gastrointestinal disorders (1 source)Dysphagia, unspecified; Translations: [Dysphagia]EpisodicOther gastrointestinal disorders (4 sources)Diarrhea; Translations: [Diarrhea, unspecified]31-94-4001Wyzoihhw Other gastrointestinal disorders (9 sources)Ascites; Translations: [Other ascites]04-56-0224DzcsltcxBmkae gastrointestinal disorders (2 sources)Other ascites; Translations: [Other ascites]Onset: 90-73-8311Lldsuwxh Other hematologic conditions (1 source)Elevated erythrocyte sedimentation rate; Translations: [Elevated sed rate]Onset: 16-51-3179AzjbcxhrYpzmo injuries and conditions due to external causes (1 source)Other injury of unspecified body region, initial encounter; Translations: [Bruising]Onset: 07-93-4524CnpkjzrdVnqxq liver diseases (4 sources)Cirrhosis of liver; Translations: [Unspecified cirrhosis of liver] 34-15-6599HdtvifdLlzfl liver diseases (1 source)Unspecified cirrhosis of liver; Translations: [Cirrhosis of liver without ascites, unspecified hepatic cirrhosis type (HCC)]Onset: 11-12-2024 ChronicOther liver diseases (8 sources)Alkaline phosphatase raised; Translations: [Abnormal levels of other serum enzymes]50-07-3920YovyzqbnPtmfu liver diseases (4 sources)Large liver; Translations: [Hepatomegaly, not elsewhere classified] 16-01-4748KkdgyuwnBkcpb lower respiratory disease (5 sources)Interstitial lung disease; Translations: [Interstitial pulmonary disease, unspecified]07-77-2879YrnsoxzCadkh lower respiratory disease (3 sources)Interstitial pulmonary disease, unspecified; Translations: [Interstitial pulmonary disease (HCC)]Onset: 77-87-8335PhzrgtnMyifc lower respiratory disease (19 sources)Cough; Translations: [Cough, unspecified]Onset: EpisodicOther lower respiratory disease (4 sources)Other forms of dyspnea; Translations: [Other respiratory abnormalities]24-08-6689WdxnkpstGpgxo lower respiratory disease (3 sources)Viral respiratory infection; Translations: [Other specified respiratory disorders]58-47-1126ZmeghicfBeohj lower respiratory disease (3 sources)Cough; Translations: [Subacute cough]45-18-4984GsgcukfcAlcbl lower respiratory disease (1 source)Other specified respiratory disorders; Translations: [Unspecified viral infection]24-76-2691XvgxdtrwAxyob lower respiratory disease (5 sources)Peripheral cyanosis; Translations: [Cyanosis]34-53-8945RcaflwgyGlnnl male genital disorders (10 sources)Impotence of organic [...] [Lesion of plantar nerve, left lower limb]Onset: 06-47-8746FvrlsomWutuk nervous system disorders (1 source)Metabolic encephalopathy; Translations: [Metabolic encephalopathy] 45-48-1833CthqqlsUplvx nervous system disorders (8 sources)Difficulty walking; Translations: [Difficulty in walking, not elsewhere classified]45-15-6841GmtekudBrrlg non-traumatic joint disorders (2 sources)Pain in left knee; Translations: [Pain in left knee]Onset: 01-16-2023 EpisodicOther nutritional; endocrine; and metabolic disorders (18 sources)Obesity; Translations: [Obesity, unspecified]Onset: 08-23-2014 00-29-2183LbkkcmdXvccu nutritional; endocrine; and metabolic disorders (8 sources)Body [...] sources)Obese class I; Translations: [Obesity, unspecified]Onset: 10-25-2023 84-02-9624IkqjwejFjtzb nutritional; endocrine; and metabolic disorders (6 sources)Hypomagnesemia; Translations: [Hypomagnesemia]92-52-5925PeycuvtJbuyj nutritional; endocrine; and metabolic disorders (1 source)Obesity, unspecified; Translations: [Obesity, Class I, BMI 30-34.9] Onset: 88-77-4787YptzsjpVelne nutritional; endocrine; and metabolic disorders (1 source)Hypomagnesemia; Translations: [Hypomagnesemia]Onset: 50-60-2274Rreddmi Other screening for suspected conditions (not mental disorders or infectious disease) (20 sources)Encounter for screening for malignant neoplasm of prostate; Translations: [Elevated C-reactive protein]Onset: 95-95-8112YibnymtbOiykt skin disorders (2 sources)Actinic keratosis; Translations: [Actinic keratosis]08-27-2024 EpisodicOther skin disorders (2 sources)Seborrheic keratosis; Translations: [Other seborrheic keratosis] 47-98-5261GspczkhxIwbvd skin disorders (2 sources)Lentiginosis; Translations: [Other melanin hyperpigmentation] 93-10-0443EcraiiqaZztre skin disorders (1 source)Dystrophia unguium; Translations: [Nail dystrophy]54-16-2759Ilgjanpt Pancreatic disorders (not diabetes) (1 source)Exocrine pancreatic insufficiency; Translations: [Exocrine pancreatic insufficiency]81-44-7309WldcipfqFahr-; endo-; and myocarditis; cardiomyopathy (except that caused by tuberculosis or sexually transmitted disease) (19 sources)Pericardial effusion; Translations: [Pericardial effusion]Onset: [id number]gnmb; pneumothorax; pulmonary collapse (20 sources)Pleural effusion; Translations: [Pleural effusion, not elsewhere classified]Onset: 676285-38-9740IltuptdbWyfppaot codes; unclassified (20 sources)Edema, generalized; Translations: [Generalized edema]Onset: 12-20-2023 Resolved: 048733-08-9550LycprmpvEmcacyrc codes; unclassified (1 source)Bilateral lower limb edema; Translations: [Localized edema]01-19-2024 EpisodicRetinal detachments; defects; vascular occlusion; and retinopathy (19 sources)Nonexudative age-related macular degeneration; Translations: [Nonexudative age-related macular degeneration, bilateral, early dry stage] Onset: 813970-29-6294QmfoftqIgiq and subcutaneous tissue infections (12 sources)Cellulitis of left foot; Translations: [Cellulitis of left lower limb]43-53-4868ZkhzxhwzVtpnaelm lupus erythematosus and connective tissue disorders (1 source)Connective tissue disease overlap syndrome; Translations: [Other overlap syndromes]27-35-2366RqoncoeYswcqsfnjgbf (1 source)Established Patient Follow-UpOnset: 43-78-0926Xpfdqgieqndq (1 source)Cough, unspecified type; Translations: [Cough, unspecified type]Onset: 10-13-2024 Past or Other Problems Problem ClassificationProblemDateDocumented DateEpisodic/ChronicAbdominal pain (7 sources)Abdominal pain; Translations: [Unspecified abdominal pain]Onset: 967628-33-6822SxfzktsvIunif and unspecified renal failure (20 sources)Acute renal failure syndrome; Translations: [Acute kidney failure, unspecified]Onset: 760610-76-7077NdwlsilyXvtwr posthemorrhagic anemia (18 sources)Acute posthemorrhagic anemia; Translations: [Acute posthemorrhagic anemia]Onset: 588147-54-0685ZgapdyabAwgcylnrma disorders (4 sources)Esophageal disorders; Translations: [Gastro-esophageal reflux disease with esophagitis, without bleeding]Fluid and electrolyte disorders (4 sources)Hypokalemia; Translations: [Hypokalemia]Onset: EpisodicGenitourinary symptoms and ill-defined conditions (20 sources)Retention of urine; Translations: [Retention of urine, unspecified] Onset: 012800-96-9050WaovckehDtqzvtkvykao; infection of eye (except that caused by tuberculosis or sexually transmitteddisease) (19 sources)Blepharitis of upper and lower eyelids of bilateral eyes; Translations: [Unspecified blepharitis right eye, upper and lower eyelids]Onset: 233758-85-0865DxqtrjfmWoktq aftercare (2 sources)Encounter for follow-up examination after completed treatment for conditions other than malignant neoplasm; Translations: [Follow-up exam]Onset: 47-96-9299EoliqeklWmbcb circulatory disease (20 sources)Raynaud's phenomenon; Translations: [Raynaud's syndrome without gangrene]Onset: 12-25-2023 Resolved: 543273-89-3052RwvryzcVyjzr circulatory disease (20 sources)History of pericarditis; Translations: [Personal history of other diseases of the circulatory system]Onset: 124036-23-9030IkhpndzrFstgj circulatory disease (1 source)Personal history of other diseases of the circulatory system; Translations: [History of pericarditis]Onset: 96-29-4838YijgiqvxPsghx circulatory disease (1 source)Other specified symptoms and signs involving the circulatory and respiratory systems; Translations:[Poor perfusion of leg]Onset: 11-12-2024 EpisodicOther connective tissue disease (2 sources)Pain in right foot; Translations: [Pain in right foot]Onset: 99-12-7580WlcakhkeRnnfu connective tissue disease (2 sources)Pain in left foot; Translations: [Pain in left foot]Onset: 08-28-2022 EpisodicOther connective tissue disease (1 source)Other specified soft tissue disorders; Translations: [Leg swelling] Onset: 74-92-3286EvhzlcmcMicwl eye disorders (19 sources)Dry eyes; Translations: [Dry eye syndrome of bilateral lacrimal glands]Onset: 267954-49-3803UxhcuesiAqeqt eye disorders (19 sources)Chalazion of left upper eyelid; Translations: [Chalazion left upper eyelid]Onset: 604927-62-6731PclleaevXkxys gastrointestinal disorders (20 sources)Esophageal dysphagia; Translations: [Other dysphagia]Onset: 149391-18-7497FhplftrwAzqkp gastrointestinal disorders (1 source)Other dysphagia; Translations: [Esophageal dysphagia]Onset: 09-24-2024 EpisodicOther gastrointestinal disorders (1 source)Diarrhea, unspecified; Translations: [Diarrhea, unspecified type] Onset: 44-02-7798VyjycaiuPduab hematologic conditions (20 sources)ESR raised; Translations: [Elevated erythrocyte sedimentation rate] Onset: 648528-94-4272KhnpkqtqAodlc liver diseases (2 sources)Hepatomegaly, not elsewhere classified; Translations: [Hepatomegaly] Onset: 54-97-1330UhhqggdvPqzuj liver diseases (2 sources)Abnormal levels of other serum enzymes; Translations: [Elevated alkaline phosphatase level]Onset: 27-67-3556NpnpsxngSoqxh lower respiratory disease (20 sources)Chronic cough; Translations: [Chronic cough]Onset: 03-17-2024 68-35-1956GcpdchvrEhqfq lower respiratory disease (20 sources)Nodule of lung; Translations: [Solitary pulmonary nodule]Onset: 213117-54-3303IpryqwghCqxjp lower respiratory disease (1 source)Cyanosis; Translations: [Extremity cyanosis]Onset: 27-39-9247Xsuepeqi Other nervous system disorders (20 sources)Postoperative pain ; Translations: [Other acute postprocedural pain] Onset: 916472-31-0082SnremzmdXtkrv upper respiratory disease (1 source)Other diseases of bronchus, not elsewhere classified; Translations: [Bronchiolar disease]Onset: 88-05-2012KpftznsySdctawfakns and intestinal abscess (2 sources)Serositis; Translations: [Other peritonitis]Onset: 10-23-2024 12-27-9393ZvmjxiaxGgzwlqnq codes; unclassified (2 sources)Generalized edema; Translations: [Anasarca]Onset: 79-99-3668Fuzqodao Unclassified (3 sources)Subacute cough R05.2Unclassified (1 source)Cough, unspecified; Translations: [Cough, unspecified]Onset: 13-19-0267Fihhdtgogzps (2 sources)Decreased [id number] Results Test NameValueInterpretationReference RangeFacilityBasophils Auto (Bld) [#/Vol] Ordered By: Yuli Mariscal on 30-40-6291Mytgdvysf (Bld) [#/Vol]0.1 10 3/uL0.0-0.1 [facility] HospitalBasophils/100 WBC Auto (Bld)Ordered By: Yuli Mariscal on 93-47-8670Smwhpgiwu/100 WBC (Bld)0.6 %0.2-2.0[facility] HospitalEosinophils/100 WBC Auto (Bld)Ordered By: Yuli Mariscal on 08-81-6154Vgaemjpfuwe/100 WBC (Bld)0.0 %Low0.9-7.0[facility] HospitalErythrocyte distribution width Auto (RBC) [Ratio]Ordered By: Yuli Mariscal on 93-74-6009Hnlufjjrzoe distribution width (RBC) [Ratio]16.4 %High11.0-15.0 [facility] HospitalGlobulin Calc (S) [Mass/Vol]Ordered By: Yuli Mariscal on 22-40-4693Yuyfkksl (S) [Mass/Vol]4.1 g/dLMemorial Health System Marietta Memorial HospitalGlomerular filtration rate (GFR) estimation in non- AmericanOrdered By: Yuli Mariscal on 68-61-5453HOK/1.73 sq M.predicted among non-blacks MDRD (S/P/Bld) [Vol rate/Area]29 mL/min/{1.73_m2}Low>=60 mL/min/1.73m 2FOhioHealth Nelsonville Health CenterHematocrit Auto (Bld) [Volume fraction]Ordered By: Yuli Mariscal on 80-20-3683Rvpzymurfm (Bld) [Volume fraction]33.8 %Low 42.0-54.0[facility] HospitalHemoglobin [Mass/volume] in Blood Ordered By: Yuli Mariscal on 93-81-7839Svevxxzopm (Bld) [Mass/Vol]10.6 g/dLLow 14.0-18.0[facility] HospitalLaboratory - Chemistry and Chemistry - challengeOrdered By: Yuli Mariscal on 45-85-7909Ozdsrvh [Mass/Vol]3.3 g/dLLow 3.4-5.0[facility] HospitalALP [Catalytic activity/Vol]102 U/L 46-116[facility] HospitalALT [Catalytic activity/Vol]21 U/L16-63 [facility] HospitalAST [Catalytic activity/Vol]9 U/TRfx98-65 [facility] HospitalBilirubin [Mass/Vol]0.6 mg/dL0.2-1.0[facility] HospitalCalcium [Mass/Vol]8.9 mg/dL8.5-10.1FOhioHealth Nelsonville Health CenterChloride [Moles/Vol]99 mmol/L73-033IumbuenipMemorial Health System Marietta Memorial HospitalCO2 [Moles/Vol]27.7 mmol/L21.0-32.0[facility] Creatinine [Mass/Vol]2.21 mg/dLHigh0.70-1.30[facility] Ferritin [Mass/Vol]47.0 ng/mL26.0-388.0[facility] HospitalGFR/1.73 sq M.predicted MDRD (S/P/Bld) [Vol rate/Area]36 mL/min/{1.73_m2}Low>=60 mL/min/1.73m 2FOhioHealth Nelsonville Health CenterGlucose [Mass/Vol]89 mg/sJ69-479 [facility] HospitalPotassium [Moles/Vol]5.0 mmol/L3.5-5.1FOhioHealth Nelsonville Health CenterProtein [Mass/Vol]7.4 g/dL6.4-8.2FSouthern Ohio Medical Centerodium [Moles/Vol]133 mmol/NUca771-368MtpdlzaarMemorial Health System [facility] HospitalUrea nitrogen [Mass/Vol]29.0 mg/dLHigh7.0-18.0[facility] HospitalUrea nitrogen/Creatinine [Mass ratio]13.1 mg/mgMemorial Health System Marietta Memorial HospitalLaboratory - Hematology and Cell countsOrdered By: Yuli Mariscal on 01-69-2732Sgrszpoq granulocytes/100 WBC (Bld)0.9 %High0.0-0.5FOhioHealth Nelsonville Health CenterLeukocytes [#/volume] corrected for nucleated erythrocytes in Blood by Automated counOrdered By: Yuli Mariscal on 47-32-9442MEB corrected for nucl RBC Auto (Bld) [#/Vol]8.1 10 3/uL4.0-11.0[facility] Lymphocytes Auto (Bld) [#/Vol]Ordered By: Ylui Mariscal on 88-48-9136Alkrctciwzq (Bld) [#/Vol]1.0 10 3/uLLow1.2-3.8[facility] Lymphocytes/100 WBC Auto (Bld)Ordered By: Yuli Mariscal on 04-19-2025 Lymphocytes/100 WBC (Bld)11.7 %Low20.5-60.0[facility] Auto (RBC) [Entitic mass]Ordered By: Yuli Mariscal on 74-91-6749QZI (RBC) [Entitic mass]30.3 pg25.9-34.0[facility] HospitalMCHC Auto (RBC) [Mass/Vol]Ordered By: Yuli Mariscal on 77-75-3654DFHP (RBC) [Mass/Vol]31.4 g/dL 29.9-35.2FOhioHealth Nelsonville Health CenterMCV Auto (RBC) [Entitic vol]Ordered By: Yuli Mariscal on 24-82-1988FUH (RBC) [Entitic vol]96.6 iNAeji98.0-94.0 [facility] HospitalMonocytes Auto (Bld) [#/Vol]Ordered By: Yuli Mariscal on 74-80-4454Tpkrcqexs (Bld) [#/Vol]1.1 10 3/uLHigh0.3-0.8 [facility] HospitalMonocytes/100 WBC Auto (Bld)Ordered By: Yuli Mariscal on 72-84-8784Pcextzelg/100 WBC (Bld)13.4 %High1.7-12.0[facility] HospitalNeutrophils Auto (Bld) [#/Vol]Ordered By: Yuli Mariscal on 43-47-4603Vshwzsvopsu (Bld) [#/Vol]6.0 10 3/uL1.4-6.5FOhioHealth Nelsonville Health CenterNeutrophils/100 WBC Auto (Bld)Ordered By: Yuli Mariscal on 53-07-1237Wbzfldvcfyq/100 WBC (Bld)73.4 %43.0-75.0[facility] HospitalNo Panel InformationOrdered By: Yuli Mariscal on 04-52-2723P-Reactive Protein, Quantitative2.29 mg/dLHigh<=0.50[facility] Eosinophils # (Auto)0.0 10 3/uL0.0-0.7FOhioHealth Nelsonville Health CenterFolate 31.50 ng/mL8.60-58.90[facility] HospitalImmature Granulocyte # (Auto)0.07 10 3/uLHigh0.00-0.03[facility] HospitalPlatelet mean volume Auto (Bld) [Entitic vol]Ordered By: Yuli Mariscal on 20-92-4559Mihaqfmz mean volume (Bld) [Entitic vol]9.8 fL9.5-13.5FOhioHealth Nelsonville Health Center Platelets Auto (Bld) [#/Vol]Ordered By: Yuli Mariscal on 53-77-1692Fqzyfumvw (Bld) [#/Vol]319 10 3/lC739-279CfjwaqwuzMemorial Health System Marietta Memorial HospitalRBC Auto (Bld) [#/Vol]Ordered By: Yuli Mariscal on 06-06-5551ZVQ (Bld) [#/Vol]3.50 10 6/uLLow 4.70-6.10[facility] Hospitalerum or plasma albumin/globulin mass ratioOrdered By: Yuli Mariscal on 12-61-2092Oajtims/Globulin [Mass ratio]0.8 {ratio}[facility] Hospitalerum or plasma anion gap determination Ordered By: Yuli Mariscal on 63-24-1738Ofuos gap [Moles/Vol]11.3 mmol/LFOhioHealth Nelsonville Health CenterCNPTOUTREACHon 85-10-0164MREYKGJEWXPVCnaknmQacnxhqbs Clinic ClevelandBasophils Auto (Bld) [#/Vol]Ordered By: Yuli Mariscal on 49-02-8654Cgncocgar (Bld) [#/Vol]0.0 10 3/uL0.0-0.1FOhioHealth Nelsonville Health CenterBasophils/100 WBC Auto (Bld)Ordered By: Yuli Mariscal on 04-12-2025 Basophils/100 WBC (Bld)0.5 %0.2-2.0[facility] Eosinophils/100 WBC Auto (Bld)Ordered By: Yuli Mariscal on 04-12-2025 Eosinophils/100 WBC (Bld)0.0 %Low0.9-7.0[facility] Erythrocyte distribution width Auto (RBC) [Ratio]Ordered By: Yuli Mariscal on 32-39-1365Vswzkqovayf distribution width (RBC) [Ratio]15.9 %High11.0-15.0 [facility] HospitalGlobulin Calc (S) [Mass/Vol]Ordered By: Yuli Mariscal on 31-51-5207Wdimadvt (S) [Mass/Vol]4.1 g/dLMemorial Health System Marietta Memorial HospitalGlomerular filtration rate (GFR) estimation in non- AmericanOrdered By: Yuli Mariscal on 67-77-0264TJD/1.73 sq M.predicted among non-blacks MDRD (S/P/Bld) [Vol rate/Area]36 mL/min/{1.73_m2}Low>=60 mL/min/1.73m 2FOhioHealth Nelsonville Health CenterHematocrit Auto (Bld) [Volume fraction]Ordered By: Yuli Mariscal on 08-83-1551Ybxvvxuxft (Bld) [Volume fraction]32.2 %Low 42.0-54.0[facility] HospitalHemoglobin [Mass/volume] in Blood Ordered By: Yuli Mariscal on 93-20-5402Wrkxxrelnx (Bld) [Mass/Vol]10.2 g/dLLow 14.0-18.0[facility] HospitalLaboratory - Chemistry and Chemistry - challengeOrdered By: Yuli Loida on 64-34-5504Rnmmgok [Mass/Vol]2.8 g/dLLow 3.4-5.0[facility] HospitalALP [Catalytic activity/Vol]96 U/L46-116 [facility] HospitalALT [Catalytic activity/Vol]21 U/L16-63 [facility] HospitalAST [Catalytic activity/Vol]8 U/CMjm29-31 [facility] HospitalBilirubin [Mass/Vol]0.7 mg/dL0.2-1.0[facility] HospitalCalcium [Mass/Vol]8.8 mg/dL8.5-10.1FOhioHealth Nelsonville Health CenterChloride [Moles/Vol]105 mmol/V66-480NwlukawwpMemorial Health System Marietta Memorial HospitalCO2 [Moles/Vol]27.2 mmol/L21.0-32.0[facility] Creatinine [Mass/Vol]1.86 mg/dLHigh0.70-1.30[facility] GFR/1.73 sq M.predicted MDRD (S/P/Bld) [Vol rate/Area]43 mL/min/{1.73_m2}Low>=60 mL/min/1.73m 2FOhioHealth Nelsonville Health CenterGlucose [Mass/Vol]96 mg/fD96-630 [facility] HospitalMagnesium [Mass/Vol]1.7 mg/dLLow1.8-2.4 [facility] HospitalPotassium [Moles/Vol]4.5 mmol/L3.5-5.1FOhioHealth Nelsonville Health CenterProtein [Mass/Vol]6.9 g/dL6.4-8.2FSouthern Ohio Medical Centerodium [Moles/Vol]141 mmol/D860-586UluqnfhvyMemorial Health System Marietta Memorial HospitalUrea nitrogen [Mass/Vol]22.0 mg/dLHigh7.0-18.0[facility] HospitalUrea nitrogen/Creatinine [Mass ratio]11.8 mg/mgMemorial Health System Marietta Memorial HospitalLaboratory - Hematology and Cell countsOrdered By: Yuli Mariscal on 88-99-5041Vfinwcne granulocytes/100 WBC (Bld)1.2 %High0.0-0.5FOhioHealth Nelsonville Health CenterLeukocytes [#/volume] corrected for nucleated erythrocytes in Blood by Automated counOrdered By: Yuli Mariscal on 22-15-0082PZQ corrected for nucl RBC Auto (Bld) [#/Vol]7.5 10 3/uL4.0-11.0[facility] Lymphocytes Auto (Bld) [#/Vol]Ordered By: Yuli Mariscal on 87-93-5261Wckkwcbyetf (Bld) [#/Vol]0.9 10 3/uLLow1.2-3.8[facility] Lymphocytes/100 WBC Auto (Bld)Ordered By: Yuli Mariscal on 04-12-2025 Lymphocytes/100 WBC (Bld)12.2 %Low20.5-60.0[facility] Auto (RBC) [Entitic mass]Ordered By: Yuli Mariscal on 82-78-8831PJN (RBC) [Entitic mass]30.6 pg25.9-34.0[facility] HospitalMCHC Auto (RBC) [Mass/Vol]Ordered By: Yuli Mariscal on 93-85-3204HSRP (RBC) [Mass/Vol]31.7 g/dL 29.9-35.2FOhioHealth Nelsonville Health CenterMCV Auto (RBC) [Entitic vol]Ordered By: Yuli Mariscal on 08-04-6025OEA (RBC) [Entitic vol]96.7 eTDkmx50.0-94.0 [facility] HospitalMonocytes Auto (Bld) [#/Vol]Ordered By: Yuli Mariscal on 77-52-0867Pdvltrbrq (Bld) [#/Vol]0.8 10 3/uL0.3-0.8[facility] HospitalMonocytes/100 WBC Auto (Bld)Ordered By: Yuli Mariscal on 49-86-5339Pjhqsjeur/100 WBC (Bld)10.3 %1.7-12.0[facility] Neutrophils Auto (Bld) [#/Vol]Ordered By: Yuli Mariscal on 57-64-7084Smkdvmlxkat (Bld) [#/Vol]5.7 10 3/uL1.4-6.5FOhioHealth Nelsonville Health CenterNeutrophils/100 WBC Auto (Bld)Ordered By: Yuli Mariscal on 91-56-2830Zckxikzexeu/100 WBC (Bld) 75.8 %High43.0-75.0[facility] HospitalNo Panel InformationOrdered By: Yuli Mariscal on 45-94-3968Kgbrcligcls # (Auto)0.0 10 3/uL0.0-0.7FOhioHealth Nelsonville Health CenterImmature Granulocyte # (Auto)0.09 10 3/uLHigh0.00-0.03 [facility] HospitalPlatelet mean volume Auto (Bld) [Entitic vol] Ordered By: Yuli Mariscal on 02-39-8894Gumzproh mean volume (Bld) [Entitic vol] 9.5 fL9.5-13.5FOhioHealth Nelsonville Health CenterPlatelets Auto (Bld) [#/Vol] Ordered By: Yuli Mariscal on 47-72-6793Vqbqkjzwf (Bld) [#/Vol]288 10 3/kI243-004 [facility] HospitalRBC Auto (Bld) [#/Vol]Ordered By: Yuli Mairscal on 09-72-9702ROK (Bld) [#/Vol]3.33 10 6/uLLow4.70-6.10[facility] Hospitalerum or plasma albumin/globulin mass ratioOrdered By: Yuli Mariscal on 75-64-7329Hhisxqz/Globulin [Mass ratio]0.7 {ratio}[facility] Hospitalerum or plasma anion gap determinationOrdered By: Yuli Mariscal on 28-30-6508Aubjr gap [Moles/Vol]13.3 mmol/LFOhioHealth Nelsonville Health Center Basophils Auto (Bld) [#/Vol]Ordered By: Pablito Hoffman on 40-03-6240Wcayqrvby (Bld) [#/Vol]0.0 10 3/uL0.0-0.1FOhioHealth Nelsonville Health CenterBasophils/100 WBC Auto (Bld)Ordered By: Pablito Hoffman on 05-35-7413Teydskuqy/100 WBC (Bld)0.5 % 0.2-2.0[facility] HospitalEosinophils/100 WBC Auto (Bld)Ordered By: Pablito Hoffman on 59-85-3697Jqcbaezhbux/100 WBC (Bld)0.0 %Low0.9-7.0[facility] HospitalErythrocyte distribution width Auto (RBC) [Ratio]Ordered By: Pablito Hoffman on 21-53-1181Tmhqtuosulh distribution width (RBC) [Ratio]15.8 % High11.0-15.0[facility] HospitalGlobulin Calc (S) [Mass/Vol] Ordered By: Pablito Hoffman on 60-13-4642Omunnbcv (S) [Mass/Vol]3.7 g/dLMemorial Health System Marietta Memorial HospitalGlomerular filtration rate (GFR) estimation in non- AmericanOrdered By: Pablito Hoffman on 83-38-5274BUN/1.73 sq M.predicted among non-blacks MDRD (S/P/Bld) [Vol rate/Area]49 mL/min/{1.73_m2}Low>=60 mL/min/1.73m 2FOhioHealth Nelsonville Health CenterHematocrit Auto (Bld) [Volume fraction]Ordered By: Pablito Hoffman on 80-63-2359Mrjrvasgob (Bld) [Volume fraction]31.6 %Low42.0-54.0[facility] HospitalHemoglobin [Mass/volume] in BloodOrdered By: Pablito Hoffman on 10-93-5370Cqfisnuywc (Bld) [Mass/Vol]10.0 g/dLLow14.0-18.0[facility] HospitalLaboratory - Chemistry and Chemistry - challengeOrdered By: Pablito Hoffman on 52-50-1479Oqgwrbu [Mass/Vol]2.5 g/dLLow3.4-5.0[facility] HospitalALP [Catalytic activity/Vol]93 U/G11-242ZxibggbwbMemorial Health System Marietta Memorial HospitalALT [Catalytic activity/Vol]21 U/F56-02YbjvzfsdkMemorial Health System [facility]etta [facility] HospitalAST [Catalytic activity/Vol]U/NNkv08-13CvdxfkmlaMemorial Health System Marietta Memorial HospitalBilirubin [Mass/Vol]0.6 mg/dL0.2-1.0[facility] HospitalCalcium [Mass/Vol]8.5 mg/dL 8.5-10.1FOhioHealth Nelsonville Health CenterChloride [Moles/Vol]105 mmol/L98-107 [facility] HospitalCO2 [Moles/Vol]23.4 mmol/L21.0-32.0[facility] HospitalCreatinine [Mass/Vol]1.41 mg/dLHigh0.70-1.30[facility] HospitalGFR/1.73 sq M.predicted MDRD (S/P/Bld) [Vol rate/Area]60 mL/min/{1.73_m2}>=60 mL/min/1.73m 2FOhioHealth Nelsonville Health CenterGlucose [Mass/Vol]92 mg/hN01-599YrzlakrpiMemorial Health System Marietta Memorial HospitalMagnesium [Mass/Vol]2.2 mg/dL1.8-2.4FOhioHealth Nelsonville Health CenterPotassium [Moles/Vol]3.4 mmol/LLow 3.5-5.1FOhioHealth Nelsonville Health CenterProtein [Mass/Vol]6.2 g/dLLow6.4-8.2 [facility] Hospitalodium [Moles/Vol]137 mmol/C977-667UrgbxwszsMemorial Health System Marietta Memorial HospitalUrea nitrogen [Mass/Vol]24.0 mg/dLHigh7.0-18.0[facility] HospitalUrea nitrogen/Creatinine [Mass ratio]17.0 mg/mgMemorial Health System Marietta Memorial HospitalLaboratory - Hematology and Cell countsOrdered By: Pablito Hoffman on 51-04-8863Sssjpotk granulocytes/100 WBC (Bld)1.6 %High0.0-0.5 [facility] HospitalLeukocytes [#/volume] corrected for nucleated erythrocytes in Blood by Automated counOrdered By: Pablito Hoffman on 52-53-9264MTY corrected for nucl RBC Auto (Bld) [#/Vol]7.5 10 3/uL4.0-11.0[facility] HospitalLymphocytes Auto (Bld) [#/Vol]Ordered By: Pablito Hoffman on 85-88-6146Miwvmcbjrmv (Bld) [#/Vol]0.8 10 3/uLLow1.2-3.8[facility] HospitalLymphocytes/100 WBC Auto (Bld)Ordered By: Pablito Hoffman on 41-76-5700Ynclubdmnwa/100 WBC (Bld)10.8 %Low20.5-60.0[facility] HospitalH Auto (RBC) [Entitic mass]Ordered By: Pablito Hoffman on 04-20-4505SZV (RBC) [Entitic mass]30.4 pg25.9-34.0[facility] HospitalMCHC Auto (RBC) [Mass/Vol]Ordered By: Pablito Hoffman on 10-38-4824OVLD (RBC) [Mass/Vol]31.6 g/dL29.9-35.2FOhioHealth Nelsonville Health CenterMCV Auto (RBC) [Entitic vol] Ordered By: Pablito Hoffman on 71-00-6053EGV (RBC) [Entitic vol]96.0 fLHigh 80.0-94.0[facility] HospitalMonocytes Auto (Bld) [#/Vol]Ordered By: Pablito Hoffman on 23-65-3707Hvyplhyef (Bld) [#/Vol]0.9 10 3/uLHigh0.3-0.8 [facility] HospitalMonocytes/100 WBC Auto (Bld)Ordered By: Pablito Hoffman on 62-70-0073Ugzpinfya/100 WBC (Bld)11.4 %1.7-12.0[facility] HospitalNeutrophils Auto (Bld) [#/Vol]Ordered By: Pablito Hoffman on 09-10-2236Aqpqbjwwput (Bld) [#/Vol]5.7 10 3/uL1.4-6.5FOhioHealth Nelsonville Health CenterNeutrophils/100 WBC Auto (Bld)Ordered By: Pablito Hoffman on 04-07-2025 Neutrophils/100 WBC (Bld)75.7 %High43.0-75.0[facility] HospitalNo Panel InformationOrdered By: Pablito Hoffman on 13-76-4888Tyivglchnho # (Auto)0.0 10 3/uL0.0-0.7FOhioHealth Nelsonville Health CenterImmature Granulocyte # (Auto)0.12 10 3/uLHigh0.00-0.03[facility] HospitalPlatelet mean volume Auto (Bld) [Entitic vol]Ordered By: Pablito Hoffman on 36-97-5041Izgzcgog mean volume (Bld) [Entitic vol]9.7 fL9.5-13.5FOhioHealth Nelsonville Health CenterPlatelets Auto (Bld) [#/Vol]Ordered By: Pablito Hoffman on 46-02-4157Atwehdvqj (Bld) [#/Vol]243 10 3/lX413-684PceskxrmrMemorial Health System Marietta Memorial HospitalRBC Auto (Bld) [#/Vol]Ordered By: Pablito Hoffman on 90-15-6119XFO (Bld) [#/Vol]3.29 10 6/uLLow4.70-6.10[facility] Hospitalerum or plasma albumin/globulin mass ratioOrdered By: Pablito Hoffman on 03-37-1625Wcknojf/Globulin [Mass ratio]0.7 {ratio}[facility] Hospitalerum or plasma anion gap determinationOrdered By: Pablito Hoffman on 66-27-2298Nttnr gap [Moles/Vol]12.0 mmol/LFOhioHealth Nelsonville Health CenterBasophils Auto (Bld) [#/Vol]Ordered By: Pablito Hoffmna on 04-06-2025 Basophils (Bld) [#/Vol]0.0 10 3/uL0.0-0.1FOhioHealth Nelsonville Health Center Basophils/100 WBC Auto (Bld)Ordered By: Pablito Hoffman on 76-96-8164Otwfocrkh/100 WBC (Bld)0.5 %0.2-2.0[facility] HospitalEosinophils/100 WBC Auto (Bld)Ordered By: Pablito Hoffman on 36-66-7168Eykepigguqu/100 WBC (Bld)0.0 %Low 0.9-7.0[facility] HospitalErythrocyte distribution width Auto (RBC) [Ratio]Ordered By: Pablito Hoffman on 69-88-5924Fkpmmngetvj distribution width (RBC) [Ratio]15.9 %High11.0-15.0[facility] HospitalGlobulin Calc (S) [Mass/Vol]Ordered By: Pablito Hoffman on 82-06-1093Xnuqfhfq (S) [Mass/Vol] 3.9 g/dLMemorial Health System Marietta Memorial HospitalGlomerular filtration rate (GFR) estimation in non- AmericanOrdered By: Pablito Hoffman on 99-32-6200TIM/1.73 sq M.predicted among non-blacks MDRD (S/P/Bld) [Vol rate/Area]55 mL/min/{1.73_m2}Low>=60 mL/min/1.73m 2FOhioHealth Nelsonville Health Center Hematocrit Auto (Bld) [Volume fraction]Ordered By: Pablito Hoffman on 04-06-2025 Hematocrit (Bld) [Volume fraction]30.3 %Low42.0-54.0[facility] HospitalHemoglobin [Mass/volume] in BloodOrdered By: Pablito Hoffman on 04-06-2025 Hemoglobin (Bld) [Mass/Vol]9.8 g/dLLow14.0-18.0[facility] Laboratory - Chemistry and Chemistry - challengeOrdered By: Pablito Hoffman on 86-66-5979Uogkzft [Mass/Vol]2.4 g/dLLow3.4-5.0[facility] ALP [Catalytic activity/Vol]92 U/E68-018XvnzlvnueMemorial Health System Marietta Memorial HospitalALT [Catalytic activity/Vol]25 U/B30-12UfroejacgMemorial Health System Marietta Memorial HospitalAST [Catalytic activity/Vol]4 U/HFer22-58AaghdskgkMemorial Health System [facility] Memorial HospitalBilirubin [Mass/Vol]0.7 mg/dL0.2-1.0[facility] HospitalCalcium [Mass/Vol]8.4 mg/dLLow8.5-10.1FOhioHealth Nelsonville Health CenterChloride [Moles/Vol]104 mmol/L 98-107[facility] HospitalCO2 [Moles/Vol]25.3 mmol/L21.0-32.0 [facility] HospitalCreatinine [Mass/Vol]1.27 mg/dL0.70-1.30 [facility] HospitalGFR/1.73 sq M.predicted MDRD (S/P/Bld) [Vol rate/Area]mL/min/{1.73_m2}>=60 mL/min/1.73m 2FOhioHealth Nelsonville Health Center Glucose [Mass/Vol]98 mg/gU68-109OfcdponnnMemorial Health System Marietta Memorial HospitalMagnesium [Mass/Vol]2.2 mg/dL1.8-2.4FOhioHealth Nelsonville Health CenterPotassium [Moles/Vol] 3.4 mmol/LLow3.5-5.1FOhioHealth Nelsonville Health CenterProtein [Mass/Vol]6.3 g/dL Low6.4-8.2FSouthern Ohio Medical Centerodium [Moles/Vol]140 mmol/W869-311 [facility] HospitalUrea nitrogen [Mass/Vol]25.0 mg/dLHigh7.0-18.0 [facility] HospitalUrea nitrogen/Creatinine [Mass ratio]19.7 mg/mg [facility] HospitalLaboratory - Hematology and Cell countsOrdered By: Pablito Hoffman on 78-68-0912Zrebejbi granulocytes/100 WBC (Bld)1.2 %High 0.0-0.5FOhioHealth Nelsonville Health CenterLeukocytes [#/volume] corrected for nucleated erythrocytes in Blood by Automated counOrdered By: Pablito Hoffman on 05-69-9962YGF corrected for nucl RBC Auto (Bld) [#/Vol]6.5 10 3/uL4.0-11.0 [facility] HospitalLymphocytes Auto (Bld) [#/Vol]Ordered By: Pablito Hoffman on 27-95-6321Cmngflexhjd (Bld) [#/Vol]0.9 10 3/uLLow1.2-3.8 [facility] HospitalLymphocytes/100 WBC Auto (Bld)Ordered By: Pablito Hoffman on 34-59-9819Sbpzpzmwlve/100 WBC (Bld)13.6 %Low20.5-60.0[facility] Auto (RBC) [Entitic mass]Ordered By: Pablito Hoffman on 15-04-3639EMI (RBC) [Entitic mass]31.1 pg25.9-34.0[facility] HospitalMCHC Auto (RBC) [Mass/Vol]Ordered By: Pablito Hoffman on 18-97-1211IBPL (RBC) [Mass/Vol]32.3 g/dL29.9-35.2FOhioHealth Nelsonville Health CenterMCV Auto (RBC) [Entitic vol]Ordered By: Pablito Hoffman on 03-74-5797OGE (RBC) [Entitic vol]96.2 lIMwpy49.0-94.0[facility] HospitalMonocytes Auto (Bld) [#/Vol] Ordered By: Pablito Hoffman on 08-46-4850Ocznekvxy (Bld) [#/Vol]0.8 10 3/uL0.3-0.8 [facility] HospitalMonocytes/100 WBC Auto (Bld)Ordered By: Pablito Hoffman on 74-28-8923Miasfngso/100 WBC (Bld)12.9 %High1.7-12.0[facility] HospitalNeutrophils Auto (Bld) [#/Vol]Ordered By: Pablito Hoffman on 78-03-3167Cscglkogfqh (Bld) [#/Vol]4.7 10 3/uL1.4-6.5FOhioHealth Nelsonville Health CenterNeutrophils/100 WBC Auto (Bld)Ordered By: Pablito Hoffman on 04-06-2025 Neutrophils/100 WBC (Bld)71.8 %43.0-75.0[facility] HospitalNo Panel InformationOrdered By: Pablito Hoffman on 63-25-7452E-Reactive Protein, Quantitative6.70 mg/dLHigh<=0.50[facility] HospitalEosinophils # (Auto)0.0 10 3/uL0.0-0.7FOhioHealth Nelsonville Health CenterImmature Granulocyte # (Auto)0.08 10 3/uLHigh0.00-0.03[facility] HospitalPhosphorus Level 3.9 mg/dL2.6-4.7FOhioHealth Nelsonville Health CenterPlatelet mean volume Auto (Bld) [Entitic vol]Ordered By: Pablito Hoffman on 37-36-8141Ezankkcu mean volume (Bld) [Entitic vol]9.8 fL9.5-13.5FOhioHealth Nelsonville Health CenterPlatelets Auto (Bld) [#/Vol]Ordered By: Pablito Hoffman on 62-59-2617Juuotjwbu (Bld) [#/Vol]250 10 3/uL 150-450[facility] HospitalRBC Auto (Bld) [#/Vol]Ordered By: Pablito Hoffman on 80-42-7229GXT (Bld) [#/Vol]3.15 10 6/uLLow4.70-6.10[facility] Hospitalerum or plasma albumin/globulin mass ratioOrdered By: Pablito Hoffman on 23-99-1584Yhpdxqb/Globulin [Mass ratio]0.6 {ratio}[facility] Hospitalerum or plasma anion gap determinationOrdered By: Pablito Hoffman on 17-62-0028Ktuoc gap [Moles/Vol]14.1 mmol/LFOhioHealth Nelsonville Health CenterErythrocyte distribution width Auto (RBC) [Ratio]Ordered By: Bijal Kuar on 23-06-9214Qrjytfduvxb distribution width (RBC) [Ratio]15.9 % High11.0-15.0[facility] HospitalGlomerular filtration rate (GFR) estimation in non- AmericanOrdered By: Bijal Kaur on 04-05-2025 GFR/1.73 sq M.predicted among non-blacks MDRD (S/P/Bld) [Vol rate/Area]53 mL/min/{1.73_m2}Low>=60 mL/min/1.73m 2FOhioHealth Nelsonville Health Center Hematocrit Auto (Bld) [Volume fraction]Ordered By: Bijal Kaur on 04-05-2025 Hematocrit (Bld) [Volume fraction]29.1 %Low42.0-54.0[facility] HospitalHemoglobin [Mass/volume] in BloodOrdered By: Bijal Kaur on 04-05-2025 Hemoglobin (Bld) [Mass/Vol]9.4 g/dLLow14.0-18.0[facility] Laboratory - Chemistry and Chemistry - challengeOrdered By: Bijal Kaur on 53-35-8401Bjaaiuv [Mass/Vol]8.4 mg/dLLow8.5-10.1FOhioHealth Nelsonville Health CenterChloride [Moles/Vol]102 mmol/G99-599DflsxdgasMemorial Health System Mari[facility] Memorial HospitalCO2 [Moles/Vol]25.9 mmol/L21.0-32.0[facility] HospitalCreatinine [Mass/Vol]1.32 mg/dLHigh0.70-1.30[facility] HospitalGFR/1.73 sq M.predicted MDRD (S/P/Bld) [Vol rate/Area]mL/min/{1.73_m2}>=60 mL/min/1.73m 2 [facility] HospitalGlucose [Mass/Vol]101 mg/vF72-562FhfqacbdnMemorial Health System Marietta Memorial HospitalPotassium [Moles/Vol]3.2 mmol/LLow3.5-5.1FSouthern Ohio Medical Centerodium [Moles/Vol]138 mmol/D129-757IdhyprxdyMemorial Health System Marietta Memorial HospitalUrea nitrogen [Mass/Vol]28.0 mg/dLHigh7.0-18.0[facility] HospitalUrea nitrogen/Creatinine [Mass ratio]21.2 mg/mgMemorial Health System Marietta Memorial HospitalLeukocytes [#/volume] corrected for nucleated erythrocytes in Blood by Automated counOrdered By: Bijal Kaur on 84-54-9896BZQ corrected for nucl RBC Auto (Bld) [#/Vol]7.1 10 3/uL4.0-11.0[facility] Auto (RBC) [Entitic mass]Ordered By: Bijal Garciaomar on 19-14-2810AVR (RBC) [Entitic mass]31.1 pg25.9-34.0[facility] HospitalMCHC Auto (RBC) [Mass/Vol]Ordered By: Bijal Garciaomar on 40-78-7963MZKH (RBC) [Mass/Vol] 32.3 g/dL29.9-35.2FOhioHealth Nelsonville Health CenterMCV Auto (RBC) [Entitic vol] Ordered By: Bijal Garciaomar on 72-89-7380CUG (RBC) [Entitic vol]96.4 fLHigh 80.0-94.0[facility] HospitalNo Panel InformationOrdered By: Oblacy Garciaomar on 55-89-3380H-Reactive Protein, Quantitative9.48 mg/dLHigh <=0.50[facility] HospitalPlatelet mean volume Auto (Bld) [Entitic vol]Ordered By: Objuanitadacynthia Daromar on 34-54-4809Gyqbcpxz mean volume (Bld) [Entitic vol]9.7 fL9.5-13.5FOhioHealth Nelsonville Health CenterPlatelets Auto (Bld) [#/Vol] Ordered By: Objuanitadah Daromar on 92-32-9542Yuouporwz (Bld) [#/Vol]225 10 3/uL 150-450[facility] HospitalRBC Auto (Bld) [#/Vol]Ordered By: Objuanitadacynthia Garciaomar on 49-06-6396SBY (Bld) [#/Vol]3.02 10 6/uLLow4.70-6.10[facility] Hospitalerum or plasma anion gap determinationOrdered By: Objuanitadacynthia Garciaomar on 75-89-9311Xelun gap [Moles/Vol]13.3 mmol/LFOhioHealth Nelsonville Health CenterBasophils Auto (Bld) [#/Vol]Ordered By: Objuanitadacynthia Daromar on 59-86-7929Dnwvjwiwp (Bld) [#/Vol]0.0 10 3/uL0.0-0.1FOhioHealth Nelsonville Health CenterBasophils/100 WBC Auto (Bld)Ordered By: Objuanitadah Daromar on 04-04-2025 Basophils/100 WBC (Bld)0.2 %0.2-2.0[facility] Eosinophils/100 WBC Auto (Bld)Ordered By: Obaydah Daromar on 04-04-2025 Eosinophils/100 WBC (Bld)0.0 %Low0.9-7.0[facility] Erythrocyte distribution width Auto (RBC) [Ratio]Ordered By: Obclarissa Daromar on 16-32-9706Atfsdwsqhmy distribution width (RBC) [Ratio]15.9 %High11.0-15.0 [facility] HospitalGlobulin Calc (S) [Mass/Vol]Ordered By: [facility] Joseriverview on 62-53-6142Fcjtscgi (S) [Mass/Vol]4.2 g/dLMemorial Health System Marietta Memorial HospitalGlomerular filtration rate (GFR) estimation in non- AmericanOrdered By: clarissa Shaun on 12-40-8830RFA/1.73 sq M.predicted among non-blacks MDRD (S/P/Bld) [Vol rate/Area]46 mL/min/{1.73_m2}Low>=60 mL/min/1.73m 2FOhioHealth Nelsonville Health CenterHematocrit Auto (Bld) [Volume fraction]Ordered By: [facility] Natasha on 87-09-5510Udssvvlcnr (Bld) [Volume fraction]32.0 %Low 42.0-54.0[facility] HospitalHemoglobin [Mass/volume] in Blood Ordered By: clarissa Shaun on 41-76-3464Lyjhiisvty (Bld) [Mass/Vol]10.2 g/dLLow 14.0-18.0[facility] HospitalLaboratory - Chemistry and Chemistry - challengeOrdered By: Giselle Shaun on 15-71-0183Hczkplv [Mass/Vol]2.7 g/dLLow 3.4-5.0[facility] HospitalALP [Catalytic activity/Vol]91 U/L46-116 [facility] HospitalALT [Catalytic activity/Vol]20 U/L16-63 [facility] HospitalAST [Catalytic activity/Vol]U/VMws83-20 [facility] HospitalBilirubin [Mass/Vol]0.8 mg/dL0.2-1.0[facility] HospitalCalcium [Mass/Vol]8.7 mg/dL8.5-10.1FOhioHealth Nelsonville Health CenterChloride [Moles/Vol]101 mmol/R30-597DbboiucetMemorial Health System Marietta Memorial HospitalCO2 [Moles/Vol]25.9 mmol/L21.0-32.0[facility] Creatinine [Mass/Vol]1.50 mg/dLHigh0.70-1.30[facility] GFR/1.73 sq M.predicted MDRD (S/P/Bld) [Vol rate/Area]55 mL/min/{1.73_m2}Low>=60 mL/min/1.73m 2FOhioHealth Nelsonville Health CenterGlucose [Mass/Vol]115 mg/dLHigh 74-106[facility] HospitalPotassium [Moles/Vol]3.5 mmol/L3.5-5.1 [facility] HospitalProtein [Mass/Vol]6.9 g/dL6.4-8.2FSouthern Ohio Medical Centerodium [Moles/Vol]138 mmol/P399-500MenlibhxoMemorial Health System Marietta Memorial HospitalUrea nitrogen [Mass/Vol]34.0 mg/dLHigh7.0-18.0[facility] HospitalUrea nitrogen/Creatinine [Mass ratio]22.7 mg/mgMemorial Health System Marietta Memorial HospitalLaboratory - Hematology and Cell countsOrdered By: Bijal Dunnr on 81-54-4563Ocunnygp granulocytes/100 WBC (Bld)0.6 %High0.0-0.5FOhioHealth Nelsonville Health CenterLeukocytes [#/volume] corrected for nucleated erythrocytes in Blood by Automated counOrdered By: Bijal Garciaomar on 04-04-2025 WBC corrected for nucl RBC Auto (Bld) [#/Vol]10.2 10 3/uL4.0-11.0[facility] HospitalLymphocytes Auto (Bld) [#/Vol]Ordered By: Oblacy Garciaomar on 67-54-2578Drkwaztwwbl (Bld) [#/Vol]0.9 10 3/uLLow1.2-3.8[facility] HospitalLymphocytes/100 WBC Auto (Bld)Ordered By: Oblacy Garciaomar on 95-05-6854Eqvajwhkure/100 WBC (Bld)8.8 %Low20.5-60.0[facility] HospitalMCH Auto (RBC) [Entitic mass]Ordered By: Objuanitadacynthia Garciaomar on 37-42-8928VSQ (RBC) [Entitic mass]30.9 pg25.9-34.0[facility] HospitalMCHC Auto (RBC) [Mass/Vol]Ordered By: Objuanitadacynthia Garciaomar on 81-40-5748NFYE (RBC) [Mass/Vol] 31.9 g/dL29.9-35.2FOhioHealth Nelsonville Health CenterMCV Auto (RBC) [Entitic vol] Ordered By: Objuanitadacynthia Daromar on 34-64-0476NDC (RBC) [Entitic vol]97.0 fLHigh 80.0-94.0[facility] HospitalMonocytes Auto (Bld) [#/Vol]Ordered By: Objuanitadacynthia Garciaomar on 10-72-0909Yjrmlniyz (Bld) [#/Vol]1.0 10 3/uLHigh0.3-0.8 [facility] HospitalMonocytes/100 WBC Auto (Bld)Ordered By: Objuanitadacynthia Garciaomar on 37-32-6833Aytghiqgf/100 WBC (Bld)9.6 %1.7-12.0[facility] HospitalNeutrophils Auto (Bld) [#/Vol]Ordered By: Objuanitadacynthia Daromar on 05-59-5106Xwinenkvuub (Bld) [#/Vol]8.3 10 3/uLHigh1.4-6.5FOhioHealth Nelsonville Health CenterNeutrophils/100 WBC Auto (Bld)Ordered By: Objuanitadacynthia Garciaomar on 24-19-7675Qfilfhvrfbt/100 WBC (Bld)80.8 %High43.0-75.0[facility] HospitalNo Panel InformationOrdered By: Bijal Garciaomar on 82-10-1092F-Reactive Protein, Beoppnedrcdm63.57 mg/dLHigh<=0.50[facility] Eosinophils # (Auto)0.0 10 3/uL0.0-0.7FOhioHealth Nelsonville Health CenterImmature Granulocyte # (Auto)0.06 10 3/uLHigh0.00-0.03[facility] Platelet mean volume Auto (Bld) [Entitic vol]Ordered By: Objuanitadacynthia Garciaomar on 64-56-2608Ryioayvy mean volume (Bld) [Entitic vol]10.2 fL9.5-13.5FOhioHealth Nelsonville Health CenterPlatelets Auto (Bld) [#/Vol]Ordered By: Bijal Garciaomar on 72-37-0067Ldriszxrp (Bld) [#/Vol]231 10 3/hJ167-376SavmvqadcMemorial Health System Marietta Memorial HospitalRBC Auto (Bld) [#/Vol]Ordered By: Objuanitadacynthia Daromar on 08-32-6629UVS (Bld) [#/Vol]3.30 10 6/uLLow4.70-6.10[facility] Hospitalerum or plasma albumin/globulin mass ratioOrdered By: Oblacy Garciaomar on 04-04-2025 Albumin/Globulin [Mass ratio]0.6 {ratio}[facility] Hospitalerum or plasma anion gap determinationOrdered By: Oblacy Garciaomar on 23-52-4801Sgugn gap [Moles/Vol]14.6 mmol/LFOhioHealth Nelsonville Health CenterBasophils/100 WBC Manual cnt (Bld)Ordered By: Bijal Garciaomar on 18-00-7290Efyldbsdo/100 WBC (Bld) 2.0 %0.2-2.0[facility] HospitalEosinophils/100 WBC Manual cnt (Bld)Ordered By: Oblacy Garciaomar on 34-35-5117Btpkcmqlutr/100 WBC (Bld)0.0 %Low 0.9-7.0[facility] HospitalErythrocyte distribution width Auto (RBC) [Ratio]Ordered By: Bijal Garciaomar on 55-60-1084Uuecdulatic distribution width (RBC) [Ratio]15.9 %High11.0-15.0[facility] Glomerular filtration rate (GFR) estimation in non- AmericanOrdered By: Bijal Garciaomar on 23-86-6982PWI/1.73 sq M.predicted among non-blacks MDRD (S/P/Bld) [Vol rate/Area]53 mL/min/{1.73_m2}Low>=60 mL/min/1.73m 2FOhioHealth Nelsonville Health CenterHematocrit Auto (Bld) [Volume fraction]Ordered By: Bijal Kaur on 44-93-6302Aecouypyfk (Bld) [Volume fraction]30.8 %Low 42.0-54.0[facility] HospitalHemoglobin [Mass/volume] in Blood Ordered By: Bijal Dunn on 74-01-2315Ysmjuzuogx (Bld) [Mass/Vol]9.6 g/dLLow 14.0-18.0[facility] HospitalLaboratory - Chemistry and Chemistry - challengeOrdered By: Bijal Graciariverview on 51-07-4310Afhybzn [Mass/Vol]8.6 mg/dL 8.5-10.1FOhioHealth Nelsonville Health CenterChloride [Moles/Vol]101 mmol/L98-107 [facility] HospitalCO2 [Moles/Vol]24.6 mmol/L21.0-32.0[facility] HospitalCreatinine [Mass/Vol]1.32 mg/dLHigh0.70-1.30[facility] HospitalGFR/1.73 sq M.predicted MDRD (S/P/Bld) [Vol rate/Area] mL/min/{1.73_m2}>=60 mL/min/1.73m 2FOhioHealth Nelsonville Health CenterGlucose [Mass/Vol]105 mg/uU85-008RmqfjgfemMemorial Health System Marietta Memorial HospitalPotassium [Moles/Vol] 3.9 mmol/L3.5-5.1FSouthern Ohio Medical Centerodium [Moles/Vol]138 mmol/L 136-145[facility] HospitalUrea nitrogen [Mass/Vol]31.0 mg/dLHigh 7.0-18.0[facility] HospitalUrea nitrogen/Creatinine [Mass ratio] 23.5 mg/mgMemorial Health System Marietta Memorial HospitalLaboratory - Hematology and Cell countsOrdered By: Bijal Dunn on 63-32-7982Xfsdmohgnmr/100 WBC (Bld)10.0 % Low20.5-60.0[facility] HospitalMonocytes/100 WBC (Bld)4.0 % 1.7-12.0[facility] HospitalLeukocytes [#/volume] corrected for nucleated erythrocytes in Blood by Automated counOrdered By: Bijal Garciaomar on 86-64-1813CNX corrected for nucl RBC Auto (Bld) [#/Vol]9.8 10 3/uL4.0-11.0 [facility] HospitalMCH Auto (RBC) [Entitic mass]Ordered By: Oblacy Garciaomar on 08-77-3353OYX (RBC) [Entitic mass]30.2 pg25.9-34.0[facility] HospitalMCHC Auto (RBC) [Mass/Vol]Ordered By: Objuanitadacynthia Garciaomar on 63-61-4888GJXZ (RBC) [Mass/Vol]31.2 g/dL29.9-35.2FOhioHealth Nelsonville Health CenterMCV Auto (RBC) [Entitic vol]Ordered By: Bijal Garciaomar on 77-37-1029SMG (RBC) [Entitic vol]96.9 eWZzcc71.0-94.0[facility] HospitalNo Panel InformationOrdered By: Bijal Garciaomar on 37-41-5361Yyysghnu Basophils (Manual) 0.19 10 3/uLHigh0.00-0.10[facility] HospitalC-Reactive Protein, Wrpqhepnqtnf97.38 mg/dLHigh<=0.50[facility] HospitalEosinophils # (Manual)0.00 10 3/uL0.00-0.70[facility] HospitalLymphocytes # (Manual)0.98 10 3/uLLow1.20-3.80[facility] HospitalMonocytes # (Manual)0.39 10 3/uL0.30-0.80[facility] Hospitalegmented Neutrophils # (Manual)8.23 10 3/uLHigh1.4-6.5FOhioHealth Nelsonville Health Center Platelet mean volume Auto (Bld) [Entitic vol]Ordered By: Bijal Garciaomar on 31-40-8313Vrkalnah mean volume (Bld) [Entitic vol]10.4 fL9.5-13.5FOhioHealth Nelsonville Health CenterPlatelets Auto (Bld) [#/Vol]Ordered By: Oblacy Garciaomar on 11-22-9547Sdaqesudp (Bld) [#/Vol]210 10 3/eB848-961XsgmojachMemorial Health System Marietta Memorial HospitalRBC Auto (Bld) [#/Vol]Ordered By: Bijal Garciaomar on 12-63-9898VFZ (Bld) [#/Vol]3.18 10 6/uLLow4.70-6.10[facility] Hospitalegmented neutrophils/100 WBC Manual cnt (Bld)Ordered By: Bijal Garciaomatj on 04-03-2025 Segmented neutrophils/100 WBC (Bld)84.0 %High43.0-75.0[facility] Hospitalerum or plasma anion gap determinationOrdered By: Bijal Garciaomatj on 96-66-7509Wxwpb gap [Moles/Vol]16.3 mmol/LFOhioHealth Nelsonville Health Center Basophils Auto (Bld) [#/Vol]Ordered By: Yehuda Boggs on 45-26-7439Oassbssix (Bld) [#/Vol]0.0 10 3/uL0.0-0.1FOhioHealth Nelsonville Health CenterBasophils/100 WBC Auto (Bld)Ordered By: Yehuda Boggs on 18-64-2195Gzqypeuna/100 WBC (Bld)0.2 %0.2-2.0[facility] HospitalEosinophils/100 WBC Auto (Bld)Ordered By: Yehuda Boggs on 72-13-8041Fohawkskzyy/100 WBC (Bld)0.1 %Low0.9-7.0[facility] HospitalErythrocyte distribution width Auto (RBC) [Ratio]Ordered By: Yehuda Boggs on 17-16-6638Uagvywcvtya distribution width (RBC) [Ratio]16.0 %High11.0-15.0[facility] HospitalGlobulin Calc (S) [Mass/Vol] Ordered By: Yehuda Boggs on 06-63-2405Xfafscwg (S) [Mass/Vol]4.6 g/dLMemorial Health System Marietta Memorial HospitalGlomerular filtration rate (GFR) estimation in non- AmericanOrdered By: Yehuda Boggs on 09-51-7571QUN/1.73 sq M.predicted among non-blacks MDRD (S/P/Bld) [Vol rate/Area]39 mL/min/{1.73_m2}Low>=60 mL/min/1.73m 2FOhioHealth Nelsonville Health CenterHematocrit Auto (Bld) [Volume fraction]Ordered By: Yehuda Boggs on 49-96-9021Vptkpzwgsk (Bld) [Volume fraction]34.3 %Low42.0-54.0[facility] HospitalHemoglobin [Mass/volume] in BloodOrdered By: Yehuda Boggs on 53-97-3742Qtgbsbohtq (Bld) [Mass/Vol]11.1 g/dLLow14.0-18.0[facility] HospitalLaboratory - Chemistry and Chemistry - challengeOrdered By: Yehuda Boggs on 04-02-2025 Bilirubin Ql (U)NegativeNEGATIVEMemorial Health System Marietta Memorial HospitalGlucose (U) [Mass/Vol]NegativeNEGATIVEMemorial Health System Marietta Memorial HospitalKetones Ql (U) NegativeNEGATIVEMemorial Health System Marietta Memorial HospitalpH (U)5.5 [pH]5.0-9.0[facility] Hospitalpecific gravity (U) [Rel density]1.0251.005-1.025 [facility] HospitalUrobilinogen Qn (U)0.2 {Guido'U}/dL0.2-1.0 [facility] HospitalAlbumin [Mass/Vol]3.1 g/dLLow3.4-5.0[facility] HospitalALP [Catalytic activity/Vol]101 U/I79-397ScwmvzczfMemorial Health System Marietta Memorial HospitalALT [Catalytic activity/Vol]21 U/V52-25AdfnvijurMemorial Health System Marietta Memorial HospitalAST [Catalytic activity/Vol]13 U/SIig87-95SndkkebyyMemorial Health System Mari[facility] Memorial HospitalBilirubin [Mass/Vol]1.6 mg/dLHigh0.2-1.0[facility] HospitalBilirubin.direct [Mass/Vol]0.5 mg/dLHigh0.0-0.2FOhioHealth Nelsonville Health CenterCalcium [Mass/Vol]9.1 mg/dL8.5-10.1FOhioHealth Nelsonville Health Center Chloride [Moles/Vol]101 mmol/Q52-832JukyivnzwMemorial Health System Marietta Memorial HospitalCO2 [Moles/Vol]24.6 mmol/L21.0-32.0[facility] HospitalCreatinine [Mass/Vol]1.74 mg/dLHigh0.70-1.30[facility] HospitalGFR/1.73 sq M.predicted MDRD (S/P/Bld) [Vol rate/Area]47 mL/min/{1.73_m2}Low>=60 mL/min/1.73m 2FOhioHealth Nelsonville Health CenterGlucose [Mass/Vol]109 mg/dLHigh 74-106[facility] HospitalLactate [Moles/Vol]1.8 mmol/L0.4-2.0 [facility] HospitalPotassium [Moles/Vol]4.8 mmol/L3.5-5.1FOhioHealth Nelsonville Health CenterProtein [Mass/Vol]7.7 g/dL6.4-8.2FSouthern Ohio Medical Centerodium [Moles/Vol]136 mmol/A336-671FnigjuisdMemorial Health System Marietta Memorial HospitalUrea nitrogen [Mass/Vol]31.0 mg/dLHigh7.0-18.0[facility] HospitalUrea nitrogen/Creatinine [Mass ratio]17.8 mg/mgMemorial Health System Marietta Memorial HospitalLaboratory - Hematology and Cell countsOrdered By: Yehuda Boggs on [id number] granulocytes/100 WBC (Bld)0.5 %0.0-0.5FOhioHealth Nelsonville Health CenterLaboratory - Specimen informationOrdered By: Yehuda Boggs on [id number] (U)CLEARCLEARFOhioHealth Nelsonville Health CenterColor (U) YELLOWYELLOWMemorial Health System Marietta Memorial HospitalLaboratory - UrinalysisOrdered By: Yehuda Boggs on [id number] casts LM Ql (Urine sed)[facility] HospitalLeukocyte esterase Test strip Ql (U)NegativeNEGATIVEMemorial Health System Marietta Memorial HospitalMucus Ql (Urine sed)NONE SEENNONE [facility] HospitalNitrite Ql (U)NegativeNEGATIVEMemorial Health System Marietta [facility] Hospital Protein Ql (U)30 mg/dLAbnormalNEG/TRACEMemorial Health System [facility] Leukocytes [#/volume] corrected for nucleated erythrocytes in Blood by Automated counOrdered By: Yehuda Boggs on 23-09-1987ZKB corrected for nucl RBC Auto (Bld) [#/Vol]12.7 10 3/uLHigh4.0-11.0[facility] Lymphocytes Auto (Bld) [#/Vol]Ordered By: Yehuda Boggs on 58-88-1616Ugifvyrixra (Bld) [#/Vol]0.9 10 3/uLLow1.2-3.8[facility] Lymphocytes/100 WBC Auto (Bld)Ordered By: Yehuda Boggs on 04-02-2025 Lymphocytes/100 WBC (Bld)7.3 %Low20.5-60.0[facility] HospitalH Auto (RBC) [Entitic mass]Ordered By: Yehuda Boggs on 43-77-2825MAU (RBC) [Entitic mass]31.3 pg25.9-34.0[facility] HospitalHC Auto (RBC) [Mass/Vol]Ordered By: Yehuda Boggs on 12-33-2631VMCW (RBC) [Mass/Vol]32.4 g/dL 29.9-35.2FOhioHealth Nelsonville Health CenterMCV Auto (RBC) [Entitic vol]Ordered By: Yehuda Boggs on 78-62-2277YFB (RBC) [Entitic vol]96.6 xSGazi91.0-94.0 [facility] HospitalMonocytes Auto (Bld) [#/Vol]Ordered By: Yehuda Boggs on 23-86-1199Tisjvxgvw (Bld) [#/Vol]0.9 10 3/uLHigh0.3-0.8[facility] HospitalMonocytes/100 WBC Auto (Bld)Ordered By: Yehuda Boggs on 89-53-0885Tvxsonuee/100 WBC (Bld)6.9 %1.7-12.0[facility] Neutrophils Auto (Bld) [#/Vol]Ordered By: Yehuda Boggs on 34-98-5317Jtycnmurssy (Bld) [#/Vol]10.8 10 3/uLHigh1.4-6.5FOhioHealth Nelsonville Health Center Neutrophils/100 WBC Auto (Bld)Ordered By: Yehuda Boggs on 04-02-2025 Neutrophils/100 WBC (Bld)85.0 %High43.0-75.0[facility] HospitalNo Panel InformationOrdered By: Yehuda Boggs on 42-83-1828Sjvkt BacteriaNONE SEEN #/HPFNONE SEENMemorial Health System Marietta Memorial HospitalUrine Culture ReflexedNOMemorial Health System Marietta Memorial HospitalUrine Occult BloodNegativeNEGATIVEMemorial Health System Marietta Memorial HospitalUrine Other CastsSEEN #/LPFAbnormalNONE [facility] HospitalUrine Other CrystalsNone Seen #/HPFNone SeenMemorial Health System Marietta Memorial HospitalUrine RBCNONE SEEN #/HPF0-2FOhioHealth Nelsonville Health CenterUrine Squamous Epithelial CellsRARE #/LPFNONE/RAREMemorial Health System [facility] Urine WBCNONE SEEN #/HPFNONE [facility] HospitalEosinophils # (Auto)0.0 10 3/uL0.0-0.7FOhioHealth Nelsonville Health CenterImmature Granulocyte # (Auto)0.06 10 3/uLHigh0.00-0.03[facility] HospitalPlatelet mean volume Auto (Bld) [Entitic vol]Ordered By: Yehuda Boggs on 89-44-4860Clmiacbk mean volume (Bld) [Entitic vol]10.4 fL9.5-13.5FOhioHealth Nelsonville Health Center Platelets Auto (Bld) [#/Vol]Ordered By: Yehuda Boggs on 58-64-7217Wrihowkgd (Bld) [#/Vol]241 10 3/dO902-110ZxbrixddjMemorial Health System Marietta Memorial HospitalRBC Auto (Bld) [#/Vol]Ordered By: Yehuda Boggs on 28-46-5361QST (Bld) [#/Vol]3.55 10 6/uLLow 4.70-6.10[facility] Mentor Hospitalerum or plasma albumin/globulin mass ratioOrdered By: Yehuda Boggs on 95-66-9426Ohmyrau/Globulin [Mass ratio]0.7 {ratio}[facility] Mentor Hospitalerum or plasma anion gap determination Ordered By: Yehuda Boggs on 85-88-9503Qspdb gap [Moles/Vol]15.2 mmol/LFOhioHealth Nelsonville Health CenterXR CHEST 2V FRONTAL/LATon 89-41-7876RH CHEST 2V FRONTAL/LATNormalCDiley Ridge Medical Center metabolic 2000 panelon 00-90-5094Mqpdb gap [Moles/Vol]13 mmol/LNormal8-15Berkeley HospitalComment on above: Order Comment: Specimen Type: BLOOD SPECIMEN [facility] Address: [address] [place], [place] [address]Performed By: #### 88441-7 #### [facility] IA [id number] [address] [place] [address] [place] OF AMERICACalcium [Mass/Vol]8.7 mg/dLNormal8.5-10.2 Berkeley HospitalComment on above:Order Comment: Specimen Type: BLOOD SPECIMEN Ordering Facility: [facility] Address: [address] [place], [place] [address]Performed By: #### 88559-1 #### [facility] IA [id number] [address] [place] [address] [place] AMERICAChloride [Moles/Vol]96 mmol/BZye60-291 Berkeley HospitalComment on above:Order Comment: Specimen Type: BLOOD SPECIMEN Ordering Facility: [facility] Address: [address] [place], [place] [address]Performed By: #### 45200-6 #### [facility] IA [id number] [address] [place] [address] [place] AMERICACO2 [Moles/Vol]24 mmol/NQnyvpv02-21Sqzj HospitalComment on above:Order Comment: Specimen Type: BLOOD SPECIMEN Ordering Facility: [facility] Address: [address] [place], [place] [address]Performed By: #### 22113-3 #### [facility] IA [id number] [address] [place] [address] [place] AMERICACreatinine [Mass/Vol]1.59 mg/dLHigh 0.73-1.22Berkeley HospitalComment on above:Order Comment: Specimen Type: BLOOD SPECIMEN Ordering Facility: [facility] Address: [address] [place], [place] [address]Performed By: #### 72022-4 #### [facility] CLIA [id number] [address] [facility] [place] [address] [place] AMERICAeGFRcr SerPlBld CKD-EPI 491917 mL/min/1.73m???Low>=60Av HospitalComment on above:Order Comment: Specimen Type: BLOOD SPECIMEN Ordering Facility: [facility] Address: [address] [place], [place] [address]Result Comment: Estimated Glomerular Filtration Rate (eGFR) is [...] not accurately reflect actual GFR.Performed By: #### 63164-4 #### [facility] CLIA [id number] [place] [address]. [place] [address] [place] AMERICAGlucose [Mass/Vol]110 mg/pKDafb88-77Lgez HospitalComment on above:Order Comment: Specimen Type: BLOOD SPECIMEN Ordering Facility: [facility] Address: [address] [place] [address] Comment: The English Diabetes Association (ADA) provides guidance for cutoff [...] Standards of Medical Care in Diabetes 2016, English Diabetes Association. Diabetes Care. 2016.39(Suppl 1).Performed By: #### 69876-3 #### [facility] CLIA [id number] [address] [place] [address] [place] AMERICAPotassium [Moles/Vol]3.8 mmol/LNormal 3.7-5.1Avon HospitalComment on above:Order Comment: Specimen Type: BLOOD SPECIMEN Ordering Facility: [facility] Address: [address] [place], [place] [address]Performed By: #### 09517-4 #### [facility] IA [id number] [address] [place] [address] [place] AMERICASodium [Moles/Vol]133 mmol/SPec503-987 Berkeley HospitalComment on above:Order Comment: Specimen Type: BLOOD SPECIMEN Ordering Facility: [facility] Address: [address] [place], [place] [address]Performed By: #### 65267-7 #### [facility] CLIA [id number] [address] [place] [address] [place] AMERICAUrea nitrogen [Mass/Vol]34 mg/dLHigh9-24 Berkeley HospitalComment on above:Order Comment: Specimen Type: BLOOD SPECIMEN Ordering Facility: [facility] Address: [address] [place], [place] [address]Performed By: #### 18773-5 #### [facility] CLIA [id number] [address] [place] [address] [place] AMERICAPLATELET AGGREGATIONon 08-74-3424Cgqjtdtz aggregation ADP induced 10 umol/L (PRP) [Rel units/Vol]64 % IwwMtzavm05-35Ovqv HospitalComment on above:Order Comment: Specimen Type: BLOOD SPECIMEN Ordering Facility[facility] Address: [address] [place], [place] [address]Performed By: #### [id number], [id number] #### [facility] CLIA [id number] [address] [place] [address] [place] OF AMERICAPlatelet aggregation ADP induced 20 umol/mL (PRP) [Rel units/Vol]73 % JhdQlllkz43-80Ooms HospitalComment on above:Order Comment: Specimen Type: BLOOD SPECIMEN Ordering Facility: [facility] Address: [address] [place], [place] [address]Performed By: #### [id number], [id number] #### [facility] CLIA [id number] [address] [place] [address] [place] AMERICAPlatelet aggregation ADP induced ATP secretion 10 umol/L (Bld) [Rel units/Vol]0.8 nMNormal0.1-1.4Avon HospitalComment on above:Order Comment: Specimen Type: BLOOD SPECIMEN Ordering Facility: [facility] Address: [address] [place], [place] [address]Performed By: #### [id number], [id number] #### [facility] CLIA [id number] [address] [place] [address] [place] AMERICAPlatelet aggregation ADP induced ATP secretion 5 umol/L (Bld) [Rel units/Vol]0.4 nMNormal0.1-1.3Avon HospitalComment on above:Order Comment: Specimen Type: BLOOD SPECIMEN Ordering Facility: [facility] Address: [address] [place], [place] [address]Performed By: #### [id number], [id number] #### [facility] CLIA [id number] [address] [place] [address] [place] AMERICAPlatelet aggregation ADP induced High dose (PRP) [Rel units/Vol]57 % YnbZif70-16Azth HospitalComment on above:Order Comment: Specimen Type: BLOOD SPECIMEN Ordering Facility: [facility] Address: [address] [place], [place] [address]Performed By: #### [id number], [id number] #### [facility] CLIA [id number] [address] [place] [address] OF AMERICAPlatelet aggregation arachidonate induced 500 ug/mL (PRP) [Rel units/Vol]80 % FrfLtlhih22-654Kmfc HospitalComment on above:Order Comment: Specimen Type: BLOOD SPECIMEN Ordering Facility: [facility] Address: [address] [place], [place] [address]Performed By: #### [id number], [id number] #### [facility] CLIA [id number] [address] [place] [address] [place] AMERICAPlatelet aggregation arachidonate induced ATP secretion 500 umol/L (Bld) [Rel units/Vol]0.7 nMNormal 0.4-2.0Avon HospitalComment on above:Order Comment: Specimen Type: BLOOD SPECIMEN Ordering Facility: [facility] Address: [address] [place], [place] [address]Performed By: #### [id number], [id number] #### [facility] CLIA [id number] [address] [place] [address] [place] AMERICAPlatelet aggregation collagen induced ATP secretion 1 ug/mL (Bld) [Rel units/Vol]0.6 nMNormal0.4-1.7 Berkeley HospitalComment on above:Order Comment: Specimen Type: BLOOD SPECIMEN Ordering Facility[facility] Address: [address] [place], [place] [address]Performed By: #### [id number], [id number] #### [facility] CLIA [id number] [address] [place] [address] [place] AMERICAPlatelet aggregation collagen induced Qn (Bld)70 % DqmJho59-29Aktb HospitalComment on above:Order Comment: Specimen Type: BLOOD SPECIMEN Ordering Facility: [facility] Address: [address] [place], [place] [address]Performed By: #### [id number], [id number] #### [facility] CLIA [id number] [address] [place] [address] [place] AMERICAPlatelet aggregation EPINEPHrine induced (PRP) [Rel units/Vol]73 % LsuVgkeow83-87Tuzj HospitalComment on above:Order Comment: Specimen Type: BLOOD SPECIMEN Ordering Facility: [facility] Address: [address] [place], [place] [address]Performed By: #### [id number], [id number] #### [facility] CLIA [id number] [address] [place] [address] [place] AMERICAPlatelet aggregation EPINEPHrine induced 100 umol/L (PRP) [Rel units/Vol]76 % IpgQpdmxt73-96Vobs HospitalComment on above:Order Comment: Specimen Type: BLOOD SPECIMEN Ordering Facility: [facility] Address: [address] [place], [place] [address]Performed By: #### [id number], [id number] #### [facility] CLIA [id number] [address] [place] [address] [place] AMERICAPlatelet aggregation ristocetin induced 1200 ug/mL (PRP) [Rel units/Vol]82 % AptZwzgeu50-514Tbdy HospitalComment on above:Order Comment: Specimen Type: BLOOD SPECIMEN Ordering Facility: [facility] Address: [address] [place], [place] [address]Performed By: #### [id number], [id number] #### [facility] CLIA [id number] [address] [place] [address] [place] AMERICAPlatelet aggregation ristocetin induced 1500 ug/mL (PRP) [Rel units/Vol]85 % CmyCcjegy92-292Norb HospitalComment on above:Order Comment: Specimen Type: BLOOD SPECIMEN Ordering Facility: [facility] Address: [address] [place], [place] [address]Performed By: #### [id number], [id number] #### [facility] CLIA [id number] [address] [place] [address] [place] AMERICAPlatelet aggregation ristocetin induced 600 ug/mL (PRP) [Rel units/Vol]4 % MaxNormal0-9[facility] Comment on above:Order Comment: Specimen Type: BLOOD SPECIMEN Ordering Facility: [facility] Address: [address] [place], [place] [address]Performed By: #### [id number], [id number] #### [facility] CLIA [id number] [address] [place] [address] [place] AMERICAPlatelet aggregation ristocetin induced 900 ug/mL (PRP) [Rel units/Vol]75 % JnfXnsrwl07-369Rsnx HospitalComment on above:Order Comment: Specimen Type: BLOOD SPECIMEN Ordering Facility: [facility] Address: [address] [place], [place] [address]Performed By: #### [id number], [id number] #### [facility] CLIA [id number] [address] [place] [address] [place] AMERICAPlatelet aggregation thrombin induced ATP secretion 1 U/mL (Bld) [Rel units/Vol]1.0 nMNormal>0.5An HospitalComment on above:Order Comment: Specimen Type: BLOOD SPECIMEN Ordering Facility: [facility] Address: [address] [place], [place] [address]Performed By: #### [id number], [id number] #### [facility] CLIA [id number] [address] [place] [address] [place] AMERICAPlatelet aggregation thrombin induced ATP secretion 5 U/mL (Bld) [Rel units/Vol]0.4 nMNormal0.2-1.4 Berkeley HospitalComment on above:Order Comment: Specimen Type: BLOOD SPECIMEN Ordering Facility: [facility] Address: [address] [place], [place] [address]Performed By: #### [id number], [id number] #### [facility] CLIA [id number] [address] [place] [address] [place] AMERICAPLATELET AGGREGATION INTERP on 65-76-2901Ascandj Ab Platelet aggregation Ql (PPP)Reviewed by Edmund Lehman MDWayne County HospitalComsurgeons choice medical [facility] on above:Order Comment: Specimen Type: BLOOD SPECIMEN Ordering Facility: [facility] Address: [address] [place], [place] [address]Performed By: #### [id number], [id number] #### [facility] CLIA [id number] [address] [place] [address] [place] AMERICAPlatelet aggregation (PPP) [Interp]NormalBerkeley HospitalComment on above:Order Comment: Specimen Type: BLOOD SPECIMEN Order[facility]: [facility] Address: [address] [place], [place] [address]Result Comment: Abnormal - see comment below. A [...] clinical findings and medication history.Performed By: #### [id number], [id number] #### [facility] CLIA [id number] [address] [place] [address] [place] AMERICACNNURSEon 00-62-1516DSVEIEF NormalPromedica Fostoria Community HospitalHISTORY PHYSICALon 91-79-1109ZFCHGGV PHYSICAL NormalPromedica Fostoria Community HospitalNALBUQUERQUE INDIAN DENTAL [facility]ICING PROGon 04-44-7130IMGPEXG PROGNormal [facility] PROGNormalPromedica Fostoria Community HospitalUpper GI endoscopyon 35-81-6814Jkjwo GI endoscopyNormalCBlanchard [facility] PROGon 56-31-8200WOYNKEV PROGNormalPromedica Fostoria Community HospitalXR Foot - left 3 Viewson 03-59-3917Ihgshmc Result: 3 views left foot: Weight-bearing: DP, oblique, lateral: 03/12/2025: Unremarkable for acute osseous or joint pathology. Unremarkable for fracture or stress fracture changes. There are no distinct lytic or erosive changes of the distal phalanx 2nd digit. Extensive degenerative arthritic changes of the 1st MTP joint.[facility] HospitalRadiology Study observation (narrative)[facility] Comprehensive metabolic 2000 panelon 37-49-6947Ehmwayk [Mass/Vol]4.0 g/dLNormal 3.9-4.9[facility] on above:Order Comment: Specimen Type: BLOOD SPECIMENOrdering Facility: [facility] Address:[address] [place], [place] [address]Performed By: #### 57713-7 ####[facility]CLIA [id number] [place], [place] [address]EPR [Catalytic activity/Vol]117 U/AUgzj14-680RrazmhcpmMartin Memorial Hospital on above:Order Comment: Specimen Type: BLOOD SPECIMENOrdering Facility: [facility] Address:[address] [place], [place] [address]Performed By: #### 40390-2 ####[facility] LABCLIA [id number] [place], [place] [address]KKT [Catalytic activity/Vol]16 U/JXdxcvj42-84HfeajhahbMartin Memorial Hospital on above:Order Comment: Specimen Type: BLOOD SPECIMENOrdering Facility: [facility] Address:[address] [place], [place] [address]Performed By: #### 47099-4 ####[facility]IA [id number] [place], [place] [address]Rvnsd gap [Moles/Vol]10 mmol/LNormal8-15[facility] on above:Order Comment: Specimen Type: BLOOD SPECIMENOrdering Facility: [facility] Address:[address] [place], [place] [address]Performed By: #### 29900- 8 ####[facility]CL[facility] [id number] [facility] [place], [place] [address]TGF [Catalytic activity/Vol]U/OOzx90-91UnkeiyhmmMartin Memorial Hospital on above:Order Comment: Specimen Type: BLOOD SPECIMENOrdering Facility: [facility] Address:[address] [place], [place] [address]Performed By: #### 65799-0 ####[facility] LABCLIA [id number] TRINYKAISER WESTSIDE MEDICAL CENTERCHRISVINCENNES, [place] [address]Csotlicop [Mass/Vol]0.6 mg/dL Normal0.2-1.3[facility] on above:Order Comment: Specimen Type: BLOOD SPECIMENOrdering Facility: [facility] Address:[address] [place], [place] [address]Performed By: #### 08672-7 ####[facility] LABCLIA [id number] [facility] [place] [address] Calcium [Mass/Vol]8.7 mg/dLNormal8.5-10.2[facility] on above:Order Comment: Specimen Type: BLOOD SPECIMENOrdering Facility: [facility] Address:[address] [place], [place] [address]Performed By: #### 59758-8 ####[facility] LABCLIA [id number] [facility] OZIELCHRISMAYO CL[facility]IC [facility], [place] [address]Rbdpecbd [Moles/Vol]99 mmol/CPuvrmm72-135DlwlqstizMartin Memorial Hospital on above:Order Comment: Specimen Type: BLOOD SPECIMENOrdering Facility: [facility] Address:[address] [place], [place] [address]Performed By: #### 53811-9 ####[facility] LABCLIA [id number] [facility] HOSPITALCHRISVINCENNES, [place] [address]UZ1 [Moles/Vol] 23 mmol/GOhnhvk53-34DyuqstlqcMartin Memorial Hospital on above:Order Comment: Specimen Type: BLOOD SPECIMENOrdering Facility: [facility] Address:[address] [place] [address]Weiokvpuf By: #### 63935-5 ####[facility] LABCLIA [id number] [place], [place] [address]Hcbunilxnr [Mass/Vol]1.23 mg/dLHigh0.73-1.22[facility] on above:Order Comment: Specimen Type: BLOOD SPECIMENOrdering Facility: [facility] Address:[address] [place], [place] [address]Performed By: #### 04671-8 ####[facility] LABCLIA [id number] [place], [place] [address]yDEHac SerPlBld CKD-EPI 070605 mL/min/1.73m???Normal>=60[facility] on above:Order Comment: Specimen Type: BLOOD SPECIMENOrdering Facility: [facility] Address:[address] [place], [place] [address]Result Comment: Estimated Glomerular Filtration Rate (eGFR) is [...] not accurately reflect actual GFR.Performed By: #### 12821-7 ####[facility] LABCLIA [id number] [place], [place] [address]Amoeeie [Mass/Vol]144 mg/uCUjev99-54IsgwmwssyMartin Memorial Hospital on above:Order Comment: Specimen Type: BLOOD SPECIMENOrdering Facility: [facility] Address:[address] [place], [place] [address]Result Comment: The English Diabetes Association (ADA) provides guidance for cutoff [...] Standards of Medical Care in Diabetes 2016, English Diabetes Association. Diabetes Care. 2016.39(Suppl 1).Performed By: #### 33096-0 ####[facility] LABCLIA [id number] [place], [place] [address]Ipatceayj [Moles/Vol]4.9 mmol/LNormal3.7-5.1[facility] on above:Order Comment: Specimen Type: BLOOD SPECIMENOrdering Facility: [facility] Address:[address] [place], [place] [address]Performed By: #### 63237-1 ####[facility] LABIA [id number] [place], [place] [address]Mqsusxa [Mass/Vol]6.8 g/dLNormal6.3-8.0[facility] on above:Order Comment: Specimen Type: BLOOD SPECIMENOrdering Facility: [facility] Address:[address] [place], [place] [address]Performed By: #### 32200- 8 ####[facility] LABCLIA [id number] [place], [place] [address]Fxrbpn [Moles/Vol]132 mmol/ORvm643-217PqgqbiheqMartin Memorial Hospital on above:Order Comment: Specimen Type: BLOOD SPECIMENOrdering Facility: [facility] Address:[address] [place], [place] [address]Performed By: #### 24632-4 ####[facility] LABIA [id number] [place], [place] [address]Eheu nitrogen [Mass/Vol]22 mg/dLNormal9-24[facility] on above:Order Comment: Specimen Type: BLOOD SPECIMENOrdering Facility: [facility] Address:[address] [place], [place] [address]Performed By: #### 57853-8 ####[facility] LABCLIA [id number] [place], [place] [address]OGXFcf 89-70-0599XJBUVwohmhInvhhfgaw Clinic ClevelandCNOV on 95-26-9010UXOHEjkryzUwgxuwsfy Clinic ClevelandCNPTOUTREACHon 02-25-2025 CNPTOUTREACHNormalClevelFirstHealth Moore Regional HospitalLaboratory - Hematology and Cell countson 31-90-7919Hswamhpwti Ql (U)NegativeNegativeTrinity Health System Twin City Medical CenterLaboratory - Urinalysison 43-65-1285Ixklxbq Ql (U)NegativeNegative mg/dLTrinity Health System Twin City Medical CenterNo Panel Informationon 67-91-8107LVKSPOKWL UA (POCT)NegativeNegativeTrinity Health System Twin City Medical CenterCLARITY UA (POCT)ClearTrinity Health System Twin City Medical CenterCOLOR UA (POCT)Light yellowTrinity Health System Twin City Medical CenterGLUCOSE UA (POCT)NegativeNegative mg/dLTrinity Health System Twin City Medical CenterKETONE UA (POCT) NegativeNegative mg/dLTrinity Health System Twin City Medical CenterLEUKOCYTES UA (POCT)NegativeNegative [facility] CenterNITRITE UA (POCT)NegativeNegativeTrinity Health System Twin City Medical CenterPH UA (POCT)7.0 4.5 - 8.0[facility] Cross HospitalPECIFIC GRAVITY UA (POCT)1.0151.005 - 1.030[facility] Medical CenterUROBILINOGEN UA (POCT)0.2Normal E.U./dLTrinity Health System Twin City Medical CenterLocation:[facility], [address] [place] [address], [address] [place] [address] POINT OF CARE [facility] CenterNo Panel Informationon 98-59-1547BJDBVYNEQT: Cirrhotic liver morphology. No lesion. Patent hepatic vasculature with appropriately directed flow. Small volume abdominal ascites around the liver and in right lower quadrant. Manager Clinical Services: PSCB Transcribe Date/Time: Feb 19 2025 1:53P Dictated by : LISBETH REBOLLAR MD This examination was interpreted and the report reviewed and electronically signed by: LONNIE ANN MD on Feb 19 2025 3:15PM [facility] DIVISION OF RADIOLOGYRadiology Study observation (narrative)[facility] CenterNo Panel InformationOrdered By: Ccf Provider on 28-99-7269Jzxbjfcch ClinicUS ABD LIVER VASCULARon 10-40-1188HY ABD LIVER VASCULARNormalCUniversity Hospitals [facility] US DOPPLER COMPLETEon 62-62-9058RQ DOPPLER COMPLETENormalCAdena Regional Medical Center.doppler Abdominal vesselson 02-19-2025* * *Final Report* * * DATE OF EXAM: Feb 19 2025 1:47PM RITA 1233 - US ABD LIVER VASCULAR / PROCEDURE REASON: Other ascites * * * * Physician Interpretation * * * * EXAMINATION: LIVER VASCULAR ULTRASOUND WITH DOPPLER IMAGING CLINICAL HISTORY: [place] liver biopsy 02/02/2025: Hepatic parenchyma with zone [...] normal, phasic wave form. DIVISION OF RADIOLOGYProvider, [facility] - 02/19/[facility]25 * * *Final Report* * * DATE OF EXAM: Feb 19 2025 1:47PM [facility] 1233 - US ABD LIVER VASCULAR / PROCEDURE REASON: Other ascites * * * * Physician Interpretation * * * * EXAMINATION: LIVER VASCULAR ULTRASOUND WITH DOPPLER IMAGING CLINICAL HISTORY: [place] liver biopsy 02/02/2025: Hepatic parenchyma with zone [...] liver and in right lower quadrant. Manager Clinical Services: ALONSO Transcribe Date/Time: Feb 19 2025 1:53P Dictated by : LISBETH REBOLLAR MD This examination was interpreted and the report reviewed and electronically signed by: LONNIE ANN MD on Feb 19 2025 3:15PM [facility].doppler Unspecified body regionon 02-19-2025* * *Final Report* * * DATE OF EXAM: Feb 19 2025 1:47PM [facility] 1033 - US DOPPLER COMPLETE / PROCEDURE REASON: Other ascites * * * * Physician Interpretation * * * * EXAMINATION: LIVER VASCULAR ULTRASOUND WITH DOPPLER IMAGING CLINICAL HISTORY: [place] liver biopsy 02/02/2025: Hepatic parenchyma with zone [...] normal, phasic wave form. DIVISION OF RADIOLOGYProvider, [facility] - 02/19/2025 * * *Final Report* * * DATE OF EXAM: Feb 19 2025 1:47PM [facility] 1033 - US DOPPLER COMPLETE / PROCEDURE REASON: Other ascites * * * * Physician Interpretation * * * * EXAMINATION: LIVER VASCULAR ULTRASOUND WITH DOPPLER IMAGING CLINICAL HISTORY: [place] liver biopsy 02/02/2025: Hepatic parenchyma with zone [...] liver and in right lower quadrant. Manager Clinical Services: PSCB Transcribe Date/Time: Feb 19 2025 1:53P Dictated by : LISBETH REBOLLAR MD This examination was interpreted and the report reviewed and electronically signed by: LONNIE ANN MD on Feb 19 2025 3:15PM [facility] 2000 panelon 00-21-6325Chkpfkt [Mass/Vol]4.0 g/dLNormal3.9-4.9[facility] on above:Order Comment: Specimen Type: BLOOD SPECIMENOrdering Facility: [facility] Address:[address] [place], [place] [address]Performed By: #### 55485- 8 ####[facility] LABCLIA [id number] [place], [place] [address]IXB [Catalytic activity/Vol]106 U/EKjmmzv55-558UunkmgwafMartin Memorial Hospital on above:Order Comment: Specimen Type: BLOOD SPECIMENOrdering Facility: [facility] Address:[address] [place], [place] [address]Performed By: #### 47687-3 ####[facility] LABCLIA [id number] [place], [place] [address]ZYH [Catalytic activity/Vol]17 U/VDuufsm98-49OcsknvwjvMartin Memorial Hospital on above:Order Comment: Specimen Type: BLOOD SPECIMENOrdering Facility: [facility] Address:[address] [place], [place] [address]Performed By: #### 95563- 8 ####[facility] LABCLIA [id number] [place], [place] [address]Pveyb gap [Moles/Vol]12 mmol/LNormal8-15[facility] on above:Order Comment: Specimen Type: BLOOD SPECIMENOrdering Facility: [facility] Address:[address] [place], [place] [address]Performed By: #### 38050-7 ####[facility] LABCLIA [id number] [place], [place] [address]DTZ [Catalytic activity/Vol]U/L Hgj16-65SzvjgjwxgMartin Memorial Hospital on above:Order Comment: Specimen Type: BLOOD SPECIMENOrdering Facility: [facility] Address:[address] [place], [place] [address]Performed By: #### 34784-1 ####[facility] LABCLIA [id number] [place], [place] [address]Ihxcijxaw [Mass/Vol]0.5 mg/dLNormal0.2-1.3[facility] on above:Order Comment: Specimen Type: BLOOD SPECIMENOrdering Facility: [facility] Address:[address] [place], [place] [address]Performed By: #### 57227- 8 ####[facility] LABCLIA [id number] [facility] [place], [place] [address]Qehiees [Mass/Vol]9.2 mg/dLNormal8.5-10.2[facility] on above:Order Comment: Specimen Type: BLOOD SPECIMENOrdering Facility: [facility] Address:[address] [place], [place] [address]Performed By: #### 44861-4 ####[facility] LABCLIA [id number] [place], [place] [address]Pfbuqvsw [Moles/Vol]100 mmol/L Etaupy48-069MyyambhytMartin Memorial Hospital on above:Order Comment: Specimen Type: BLOOD SPECIMENOrdering Facility: [facility] Address:[address] [place], [place] [address]Performed By: #### 27182-0 ####[facility] LABCLIA [id number] [place] [address] CO2 [Moles/Vol]23 mmol/NUmeiqh70-25IgccthpkuMartin Memorial Hospital on above: Order Comment: Specimen Type: BLOOD SPECIMENOrdering Facility: [facility] Address:[address] [place], [place] [address]Performed By: #### 78279- 8 ####[facility] LABIA [id number] [place], [place] [address]Cxbnjexbpo [Mass/Vol]1.26 mg/dLHigh0.73-1.22[facility] on above:Order Comment: Specimen Type: BLOOD SPECIMENOrdering Facility: [facility] Address:[address] [place], [place] [address]Performed By: #### 40467-5 ####[facility] HOSPITALIA [id number] [place], [place] [address]cVABvm SerPlBld CKD-EPI 239545 mL/min/1.73m???Normal>=60[facility] on above:Order Comment: Specimen Type: BLOOD SPECIMENOrdering Facility: [facility] Address:[address] [place], [place] [address]Result Comment: Estimated Glomerular Filtration Rate (eGFR) is [...] not accurately reflect actual GFR.Performed By: #### 77937-2 ####[facility] LABIA [id number] [place], [place] [address]Rtxpcxz [Mass/Vol]144 mg/xKQlxe50-54RgyslvtsbMartin Memorial Hospital on above:Order Comment: Specimen Type: BLOOD SPECIMENOrdering Facility: [facility] Address:[address] [place], [place] [address]Result Comment: The English Diabetes Association (ADA) provides guidance for cutoff [...] Standards of Medical Care in Diabetes 2016, English Diabetes Association. Diabetes Care. 2016.39(Suppl 1).Performed By: #### 81229-5 ####[facility] LABCLIA [id number] [place], [place] [address]Acvvcaiic [Moles/Vol]4.2 mmol/LNormal3.7-5.1[facility] on above:Order Comment: Specimen Type: BLOOD SPECIMENOrdering Facility: [facility] Address:[address] [place], [place] [address]Performed By: #### 19295-8 ####[facility] LABCLIA [id number] [place], [place] [address]Dqgokqb [Mass/Vol]6.8 g/dLNormal6.3-8.0[facility] on above:Order Comment: Specimen Type: BLOOD SPECIMENOrdering Facility: [facility] Address:[address] [place], [place] [address]Performed By: #### 42688- 8 ####[facility] LABCLIA [id number] [place], [place] [address]Dralds [Moles/Vol]135 mmol/PLsx649-804RnubmvamdMartin Memorial Hospital on above:Order Comment: Specimen Type: BLOOD SPECIMENOrdering Facility: [facility] Address:[address] [place], [place] [address]Performed By: #### 14125-7 ####[facility] LABCLIA [id number] [place], [place] [address]Ujbj nitrogen [Mass/Vol]27 mg/dLHigh9-24[facility] on above:Order Comment: Specimen Type: BLOOD SPECIMENOrdering Facility: [facility] Address:[address] [place], [place] [address]Performed By: #### 69397-4 ####[facility] LABCLIA [id number] [place] [address] BRIEF OP NOTon 39-70-3174QICUQ OP NOTNormalCUniversity Hospitals Cleveland Medical CenterHISTORY PHYSICALon 18-95-0333EEDDRXU PHYSICALNormBethesda North HospitalIR TRANSJUG LIVER BX W/PRESSon 46-44-7799FW TRANSJUG LIVER BX W/PRESSNoBarnesville HospitalNURSING PROGon 06-18-1779UVCDTMM PROGNormalPromedica Fostoria Community Hospital PT EDon 23-74-6797UY EDNoBarnesville HospitalPathology biopsy report Abhijit (Tiss)on 17-95-2978YN DISCLAIMERNoKettering Health – [facility]in [facility] Center on above:Order Comment: Specimen Type: TISSUE SPECIMENOrdering Facility: [facility] Address: [address] [place] [address]Nawnhe Comment: Laboratory Developed Test (LDT) Disclaimer:Performance characteristics of immunohistochemical, immunofluorescent, and chromogenic in-situ hybridization tests have been determined by the performing laboratory within [facility]'s Amna Jonnathan [facility] Medicine Department ([facility], [facility], [facility], [facility], [facility], [facility], or [facility]) in a manner consistent with CLIA requirements. One or more of these tests may not have been cleared or approved by the FDA. RT-PLM is regulated under CLIA as qualified to perform high-complexity testing. These tests are used for clinical purposes. These should not be regarded as investigational or for research. Positive and negative controls stain appropriately.Performed By: #### 42165-6 ####[facility] LABCLIA [id number] LABORATORYCLIA [id number] [place] [id number] [facility] HEALTHCASE REPORTLakeHealth TriPoint [facility] on above:Order Comment: Specimen Type: TISSUE SPECIMENOrdering Facility: [facility] Address: [address] [place], [place] [address]Result Comment: Surgical Pathology Report Case: [id number] Provider: Isaiah Murry MD Collected: 02/02/2025 10:11 AMOrdering Location: [place] [address] Received: 02/02/2025 03:49 PMPathologist: Lucy Ngo MDSpecimen: Liver, BiopsyPerformed By: #### 93190-8 ####[facility] LABCLIA [id number] [address] LABORATORYCLIA [id number] [address]ETCLINICAL HISTORYelevated [facility] on above:Order Comment: Specimen Type: TISSUE SPECIMENOrdering Facility: [facility] Address: [address] [place], [place] [address]Performed By: #### 26127-8 ####[facility] LABCLIA [id number] [address] LABORATORYCLIA [id number] [address] STATES OF AMERICADIAGNOSIS COMMENTLakeHealth TriPoint Medical Center on above:Order Comment: Specimen Type: TISSUE SPECIMENOrdering Facility: [facility] Address: [address] [place], [place] [address]Result Comment: The histologic examination shows 2 cores of liver parenchyma exhibiting adequate num stormy of portal tracts for histologic evaluation. Portal tracts exhibit minimal mixed inflammation composed of predominantly lymphocytes admixed with rare plasma cells and eosinophils. [place] bile ducts are identified along with bile [...] hepatocytes (score 0 of 4+). CK7 highlights [place] bile ducts as well as biliary metaplasia. [...] with the diagnostic interpretation. Performed By: #### 45111-4 ####[facility] LABCLIA [id number] [address] LABORATORYIA [id number] [address] DIAGNOSISNoKettering Health – Soin Medical Center on above:Order Comment: Specimen Type: TISSUE SPECIMENOrdering Facility: [facility] Address: [address] [place], [place] [address]Result Comment: A. Liver, [place], biopsy:- Hepatic parenchyma with zone 3 patchy sinusoidal dilatation, patchy dilated/angulated portal vein branches, and pericellular fibrosis.- See comment. at 1452 EDTPerformed By: #### 03120-7 ####[facility] LABCLIA [id number] [address] LABORATORYIA [id number] [address] PERFORMING LABNoKettering Health – Soin Medical Center on above:Order Comment: Specimen Type: TISSUE SPECIMENOrdering Facility: [facility] Address: [address] [place], [place] [address]Result Comment: Diagnostic interpretation performed at: [facility], [address] [place] [address], [place] [address] CLIA# [id number] Director: Kanchan Thompsonformed By: #### 24716-7 ####[facility] LABCLIA [id number] [address] LABORATORYCLIA [id number] [address] DESCRIPTIONNormalCUniversity Hospitals Cleveland Medical CenterComment on above:Order Comment: Specimen Type: TISSUE SPECIMENOrdering Facility: [facility] Address: [address] [place], [place] [address]Result Comment: A. Liver, BiopsyReceived in formalin are two segments of cylindrical tissue aggregating to 1.5 x 0.2 x 0.1 cm, brown and of a soft and friable consistency. Totally submitted in one cassette.[facility] February 02, 2025 8:03 PMGross examination performed at [facility], [address] [place] [address] Performed By: #### 44206-0 ####[facility] LABCLIA [id number] [address] LABORATORYCLIA [id number] [address]ETURSATHOL HOSPITAL PROGon 17-00-0378ZZMQTVJ PROGNormalPromedica Fostoria Community HospitalBalourdes hospital metabolic 2000 panelOrdered By: Sudha Granger on 01-25-2025 Anion gap [Moles/Vol]13 mmol/L8 - 15 mmol/LCleveland ClinicCalcium [Mass/Vol]9.8 mg/dL8.5 - 10.2 mg/dLSalt Lake City ClinicChloride [Moles/Vol]97 mmol/LLow98 - 107 mmol/LCleveland ClinicCO2 [Moles/Vol]25 mmol/L22 - 30 mmol/LCleveland Clinic Creatinine [Mass/Vol]1.55 mg/dLHigh0.73 - 1.22 mg/dLTrinity Health System Twin City Medical CenterGFR/1.73 sq M.predicted among non-blacks MDRD [...] eGFRmay not accurately reflect actual GFR.Glucose [Mass/Vol]141 mg/pSKfhn80 - 99 mg/dLTrinity Health System [facility] Comment on above:The English Diabetes Association (ADA) provides guidance for cutoff [...] Standards of Medical Care in Diabetes 2016, English Diabetes Association. Diabetes Care. 2016.39(Suppl 1). Interpretation and review of laboratory resultsAbnormalCleveland ClinicPotassium [Moles/Vol]3.7 mmol/L3.7 - 5.1 mmol/LCleveland ClinicSodium [Moles/Vol]135 mmol/XJuz199 - 144 mmol/LCleveland ClinicUrea nitrogen [Mass/Vol]56 mg/dLHigh9 - 24 mg/dLSelect Medical Specialty Hospital - Southeast OhioBasic metabolic 2000 panelon 01-25-2025 Anion gap [Moles/Vol]13 mmol/LNormal8-15Promedica Fostoria Community HospitalComment on above:Order Comment: Specimen Type: BLOOD SPECIMENOrdering Facility: [facility] Address:[address] [place], [place] [address]Performed By: #### 06168-0, 92480-7 ####[facility] LABCLIA [id number] [place], [place] [address]Hiamdur [Mass/Vol]9.8 mg/dLNormal8.5-10.2 [facility] on above:Order Comment: Specimen Type: BLOOD SPECIMENOrdering Facility: [facility] Address:[address] [place], [place] [address]Performed By: #### 02377-9, 64775-2 ####[facility] LABCLIA [id number] [place], [place] [address]Fnbcydlv [Moles/Vol]97 mmol/TMan50-222RoxgjbugvMartin Memorial Hospital on above:Order Comment: Specimen Type: BLOOD SPECIMENOrdering Facility: [facility] Address:[address] [place], [place] [address]Performed By: #### 17809- 9, 46556-0 ####[facility] LABCLIA [id number] [place], [place] [address]WU6 [Moles/Vol]25 mmol/QZoirmj78-79RdcfaossxMartin Memorial Hospital on above:Order Comment: Specimen Type: BLOOD SPECIMENOrdering Facility: [facility] Address:[address] [place], [place] [address]Performed By: #### 16142-8, 66290-5 ####[facility] LABCLIA [id number] [place], [place] [address]Rmtmlzxcxf [Mass/Vol] 1.55 mg/dLHigh0.73-1.22[facility] on above:Order Comment: Specimen Type: BLOOD SPECIMENOrdering Facility: [facility] Address:[address] [place], [place] [address]Performed By: #### 37176-0, 22039-7 ####[facility] LABCLIA [id number] [place], [place] [address]jMSPgf SerPlBld CKD-EPI 755115 mL/min/1.73m???Low>=60 [facility] on above:Order Comment: Specimen Type: BLOOD SPECIMENOrdering Facility: [facility] Address:[address] [place], [place] [address]Hfakve Comment: Estimated Glomerular Filtration Rate (eGFR) is calculated using the 2020 CKD-EPI creatinine equation. This equation utilizes serum creatinine, sex, and age as parameters. The creatinine assay has traceable calibration to isotope dilution-mass spectrometry. Refer to KDIGO guidelines for clinical interpretation. In patients with unstable renal function, e.g. those with acute kidney injury, the eGFR may not accurately reflect actual GFR.Performed By: #### 55579-3, 58096-1 ####[facility] LABCLIA [id number] [place], [place] [address]Qdqgsze [Mass/Vol]141 mg/zNCsco18-59PuqotrtbxMartin Memorial Hospital on above:Order Comment: Specimen Type: BLOOD SPECIMENOrdering Facility: [facility] Address:[address] [place] [address]Dxhkyg Comment: The English Diabetes Association (ADA) provides guidance for cutoff [...] Standards of Medical Care in Diabetes 2016, English Diabetes Association. Diabetes Care. 2016.39(Suppl 1).Performed By: #### 00125-9, 76438-2 ####[facility] LABCLIA [id number] [place] [address] Potassium [Moles/Vol]3.7 mmol/LNormal3.7-5.1[facility] on above:Order Comment: Specimen Type: BLOOD SPECIMENOrdering Facility: [facility] Address:[address] [place], [place] [address]Pkxklnntl By: #### 76423-6, 62988-9 ####[facility] LABCLIA [id number] [place], [place] [address]Svfgiw [Moles/Vol]135 mmol/ULwv037-067 [facility] on above:Order Comment: Specimen Type: BLOOD SPECIMENOrdering Facility: [facility] Address:[address] [place], [place] [address]Performed By: #### 51531-7, 82399-6 ####[facility] LABCLIA [id number] [place], [place] [address]Wtie nitrogen [Mass/Vol]56 mg/dLHigh9-24[facility] on above: Order Comment: Specimen Type: BLOOD SPECIMENOrdering Facility: [facility] Address:[address] [place], [place] [address]Performed By: #### 34511- 9, 63640-7 ####[facility] LABCLIA [id number] [place], [place] [address]LKX panel Auto (Bld)on 86-67-7178Arrjuoapzgy distribution width (RBC) [Ratio]14.7 %11.5 - 15.0 %[facility] Medical CenterHematocrit (Bld) [Volume fraction]37.9 %Low39.0 - 51.0 %[facility] Medical CenterHemoglobin (Bld) [Mass/Vol]12.2 g/dLLow13.0 - 17.0 g/dLTrinity Health System Twin City Medical CenterInterpretation and review of laboratory resultsAbnormalCSelect Medical TriHealth Rehabilitation HospitalH (RBC) [Entitic mass]32.5 pg26.0 - 34.0 pgCSelect Medical TriHealth Rehabilitation HospitalHC (RBC) [Mass/Vol]32.2 g/dL30.5 - 36.0 g/dLKettering Health DaytonV (RBC) [Entitic vol]101.1 tDElxr40.0 - 100.0 fLCDiley Ridge Medical Center Nucleated RBC (Bld) [#/Vol]NINFClevelKettering Health Greene MemorialPlatelet mean volume (Bld) [Entitic vol]9.8 fL9.0 - 12.7 fLCDiley Ridge Medical CenterPlatelets (Bld) [#/Vol]197 10*3/[facility] Cleveland-FairhillRBC (Bld) [#/Vol]3.75 10*6/uLLow4.20 - 6.00 m/[facility] Cleveland-FairhillWBC (Bld) [#/Vol]8.05 10*3/[facility] Fairview HospitalErythrocyte distribution width (RBC) [Ratio]14.7 %Jmtrsj31.5-15.0[facility] Comment on above:Order Comment: Specimen Type: BLOOD SPECIMENOrdering Facility: [facility] Address:[address] [place] [address] Performed By: #### 41969-4 ####[facility] LABIA [id number] [place], [place] [address]Zcigxfegkp (Bld) [Volume fraction]37.9 %Low39.0-51.0[facility]ost[facility] Community HospitalComment on above:Order Comment: Specimen Type: BLOOD SPECIMENOrdering Facility: [facility] Address:[address] [place], [place] [address]Performed By: #### 47941- 2 ####[facility] LABIA [id number] [place], [place] [address]Uqcrmrwbmt (Bld) [Mass/Vol]12.2 g/dLLow13.0-17.0[facility]ost[facility] Community HospitalComment on above:Order Comment: Specimen Type: BLOOD SPECIMENOrdering Facility: [facility] Address:[address] [place], [place] [address]Performed By: #### 64062-7 ####[facility] LABIA [id number] [place], [place] [address]XVX (RBC) [Entitic mass]32.5 ytRrexci86.0-34.0[facility]ost[facility] Community HospitalComsurgeons choice medical center on above: Order Comment: Specimen Type: BLOOD SPECIMENOrdering Facility: [facility] Address:[address] [place], [place] [address]Performed By: #### 05970- 2 ####[facility] LABCLIA [id number] [place], [place] [address]RZCP (RBC) [Mass/Vol]32.2 g/oZDfvfty87.5-36.0[facility] on above:Order Comment: Specimen Type: BLOOD SPECIMENOrdering Facility: [facility] Address:[address] [place], [place] [address]Performed By: #### 17537-3 ####[facility] LABCLIA [id number] [place], [place] [address]USK (RBC) [Entitic vol]101.1 tVXeyy86.0-100.0[facility] on above: Order Comment: Specimen Type: BLOOD SPECIMENOrdering Facility: [facility] Address:[address] [place], [place] [address]Performed By: #### 06267- 2 ####[facility] LABCLIA [id number] [place], [place] [address]Ubncnkwdz RBC (Bld) [#/Vol]10*3/uLNormal<0.01[facility] on above:Order Comment: Specimen Type: BLOOD SPECIMENOrdering Facility: [facility] Address:[address] [place], [place] [address]Performed By: #### 12317-4 ####[facility] LABCLIA [id number] [place], [place] [address]Amulssuz mean volume (Bld) [Entitic vol]9.8 fLNormal9.0-12.7[facility] on above:Order Comment: Specimen Type: BLOOD SPECIMENOrdering Facility: [facility] Address:[address] [place] [address] Performed By: #### 59010-0 ####[facility] LABCLIA [id number] [place], [place] [address]Iqccozrwe (Bld) [#/Vol]197 10*3/fQPuvybt839-735Cogzagtvi Clinic ClevelandComment on above:Order Comment: Specimen Type: BLOOD SPECIMENOrdering Facility: [facility] Address:[address] [place], [place] [address]Performed By: #### 49588-2 ####[facility] LABCLIA [id number] [place], [place] [address]STM (Bld) [#/Vol]3.75 10*6/uLLow4.20-6.00[facility] on above:Order Comment: Specimen Type: BLOOD SPECIMENOrdering Facility: [facility] Address:[address] [place], [place] [address]Performed By: #### 67203-5 ####[facility] LABCLIA [id number] [place], [place] [address]CJG (Bld) [#/Vol]8.05 10*3/uL Normal3.70-11.00[facility] on above:Order Comment: Specimen Type: BLOOD SPECIMENOrdering Facility: [facility] Address:[address] [place], [place] [address]Performed By: #### 36077-0 ####[facility] LABCLIA [id number] [place], [place] [address]TQNJLDSHRhh 22-67-2736Aaumsltiz [Mass/Vol]2.2 mg/dL1.7 - 2.3 mg/dLTrinity Health System Twin City Medical CenterMagnesium SerPl-mCncon 42-47-6368Mriidxvue [Mass/Vol] 2.2 mg/dLNormal1.7-2.3[facility] on above:Order Comment: Specimen Type: BLOOD SPECIMENOrdering Facility: [facility] Address:[address] [place], [place] [address]Performed By: #### 72488-9, 84336-0 ####[facility] LABCLIA [id number] [place], [place] [address]Jqpjqmzvm [Mass/Vol]on 39-07-7455Btcxultqbwjezj and review of laboratory resultsNormalCSelect Medical Cleveland Clinic Rehabilitation Hospital, BeachwoodCNOVon 71-97-0281MITSZtipzeZqcyhxlfx Clinic SwhnewvvdY7XF SerPl-mCncon 51-55-5551Alsij 1 antitrypsin [Mass/Vol]167 mg/nCGndsdd80-807OweogzworMartin Memorial Hospital on above:Order Comment: Specimen Type: BLOOD SPECIMENOrdering Facility: [facility] Address:[address] [place] [address] Performed By: #### 38626-2, 1825-9, 2324-2, 2276-4 ####[facility] LABCLIA [id number] [address] STATES OF TR[facility] SYSTEM WEST CAMPUSANA BY IFA WITH REFLEXon 58-85-0360Emtyqxm Ab Ql (S)Negative NormalNegativeMartin Memorial Hospital on above:Order Comment: Specimen Type: BLOOD SPECIMENOrdering Facility: [facility] Address:[address] [place], [place] [address]Result Comment: Anti-nuclear antibody test is used as an aid in diagnosis of systemic autoimmune diseases. Where positive and clinically warranted, follow-up using disease-specific testing is recommended. Low positive titers are not uncommon with advanced age, certain chronic infections, and malignancies among others.Test methodology: Indirect fluorescence immunoassay (IFA) using HEp-2 cells.Performed By: #### ANAIFR ####[facility] LABCLIA [id number] [address] OF [facility] WEST CAMPUSCBC panel Auto (Bld)on 01-08-2025 Erythrocyte distribution width (RBC) [Ratio]15.8 %High11.5-15.0[facility] on above:Order Comment: Specimen Type: BLOOD SPECIMENOrdering Facility: [facility] Address:[address] [place], [place] [address]Performed By: #### 96501-7 ####[facility] LABCLIA [id number] [place], [place] [address]Iukcrngtvh (Bld) [Volume fraction]37.0 %Low39.0-51.0[facility] on above:Order Comment: Specimen Type: BLOOD SPECIMENOrdering Facility: [facility] Address:[address] [place], [place] [address]Performed By: #### 31083- 2 ####[facility] LABCLIA [id number] [place], [place] [address]Mnpyvjfime (Bld) [Mass/Vol]11.7 g/dLLow13.0-17.0[facility] on above:Order Comment: Specimen Type: BLOOD SPECIMENOrdering Facility: [facility] Address:[address] [place], [place] [address]Performed By: #### 93051-1 ####[facility] LABIA [id number] [place], [place] [address]THY (RBC) [Entitic mass]32.7 bwVxhjur49.0-34.0[facility] on above: Order Comment: Specimen Type: BLOOD SPECIMENOrdering Facility: [facility] Address:[address] [place], [place] [address]Performed By: #### 38186- 2 ####[facility] LABIA [id number] [place], [place] [address]BQXI (RBC) [Mass/Vol]31.6 g/oVHdfvss77.5-36.0[facility] on above:Order Comment: Specimen Type: BLOOD SPECIMENOrdering Facility: [facility] Address:[address] [place], [place] [address]Performed By: #### 37671-0 ####[facility] LABIA [id number] [place], [place] [address]JXC (RBC) [Entitic vol]103.4 wVAnnx39.0-100.0[facility] on above: Order Comment: Specimen Type: BLOOD SPECIMENOrdering Facility: [facility] Address:[address] [place], [place] [address]Performed By: #### 38115- 2 ####[facility] LABCLIA [id number] [place], [place] [address]Mrzlzshyo RBC (Bld) [#/Vol]10*3/uLNormal<0.01[facility] on above:Order Comment: Specimen Type: BLOOD SPECIMENOrdering Facility: [facility] Address:[address] [place], [place] [address]Performed By: #### 38537-2 ####[facility] LABCLIA [id number] [place], [place] [address]Zewrfezz mean volume (Bld) [Entitic vol]9.7 fLNormal9.0-12.7[facility] on above:Order Comment: Specimen Type: BLOOD SPECIMENOrdering Facility: [facility] Address:[address] [place] [address] Performed By: #### 91787-3 ####[facility] LABCLIA [id number] [place], [place] [address]Dqvzvkimo (Bld) [#/Vol]228 10*3/uSLbhhny628-734NhacewuvrMartin Memorial Hospital on above:Order Comment: Specimen Type: BLOOD SPECIMENOrdering Facility: [facility] Address:[address] [place], [place] [address]Performed By: #### 51276-0 ####[facility] LABCLIA [id number] [place], [place] [address]DPT (Bld) [#/Vol]3.58 10*6/uLLow4.20-6.00[facility] on above:Order Comment: Specimen Type: BLOOD SPECIMENOrdering Facility: [facility] Address:[address] [place], [place] [address]Performed By: #### 45943-2 ####[facility] LABCLIA [id number] [place], [place] [address]HIQ (Bld) [#/Vol]9.63 10*3/uL Normal3.70-11.00[facility] on above:Order Comment: Specimen Type: BLOOD SPECIMENOrdering Facility: [facility] Address:[address] [place], [place] [address]Performed By: #### 10355-7 ####[facility] LABCLIA [id number] [place], [place] [address]PLF IgM Qnon 81-92-7259LOM IGM, QUALPositiveAbnormal NegativeMartin [facility] on above:Order Comment: Specimen Type: BLOOD SPECIMENOrdering Facility: [facility] Address:[address] [place], [place] [address]Result Comment: The result suggests recent infection with Cytomegalovirus (CMV) or recent CMV reactivation. CMV IgM levels may remain elevated for extended periods after a primary infection. Clinical correlation is required.Performed By: #### 7853-5 ####[facility] LABCLIA [id number] [place] [address] [place] STATES OF AMERICAComprehensive metabolic 2000 panelon 62-71-5458Xmxpzdk [Mass/Vol]4.1 g/dLNormal3.9-4.9[facility] on above:Order Comment: Specimen Type: BLOOD SPECIMENOrdering Facility: [facility] Address:[address] [place], [place] [address]Performed By: #### 71197- 8 ####[facility] LABCLIA [id number] [place], [place] [address]CLD [Catalytic activity/Vol]92 U/AXlismf84-191GexqtlywiMartin [facility] Hospital on above:Order Comment: Specimen Type: BLOOD SPECIMENOrdering Facility: [facility] Address:[address] [place], [place] [address]Performed By: #### 52528-2 ####[facility] LABCLIA [id number] [place], [place] [address]WTP [Catalytic activity/Vol]18 U/SRluewc50-52CmgvwkpzhMartin [facility] on above:Order Comment: Specimen Type: BLOOD SPECIMENOrdering Facility: [facility] Address:[address] [place], [place] [address]Performed By: #### 01037- 8 ####[facility] LABCLIA [id number] [facility] OZIEL FAULKNERMAYO CLIN[facility], [place] [address]Zbjkh gap [Moles/Vol]8 mmol/LNormal8-15[facility] on above:Order Comment: Specimen Type: BLOOD SPECIMENOrdering Facility: [facility] Address:[address] [place], [place] [address]Performed By: #### 05996-5 ####[facility] LABCLIA [id number] [place], [place] [address]NEE [Catalytic activity/Vol]5 U/JFpl14-01AcakczpquMartin [facility] on above:Order Comment: Specimen Type: BLOOD SPECIMENOrdering Facility: [facility] Address:[address] [place], [place] [address]Performed By: #### 86246-4 ####[facility] LABCLIA [id number] [place] [address] Bilirubin [Mass/Vol]0.6 mg/dLNormal0.2-1.3[facility] on above:Order Comment: Specimen Type: BLOOD SPECIMENOrdering Facility: [facility] Address:[address] [place], [place] [address]Performed By: #### 18443-3 ####[facility] LABCLIA [id number] [place], [place] [address]Plzdgcd [Mass/Vol]9.2 mg/dLNormal8.5-10.2[facility] on above:Order Comment: Specimen Type: BLOOD SPECIMENOrdering Facility: [facility] Address:[address] [place], [place] [address]Performed By: #### 27379-5 ####[facility] LABCLIA [id number] [place], [place] [address]Bloglqcl [Moles/Vol]101 mmol/DUsfkxl46-118UpiewwpjhMartin [facility] Hospital on above: Order Comment: Specimen Type: BLOOD SPECIMENOrdering Facility: [facility] Address:[address] [place], [place] [address]Performed By: #### 66315- 8 ####[facility] LABCLIA [id number] [place], [place] [address]VB9 [Moles/Vol]29 mmol/ARhqsdx93-99UtxwhffweMartin [facility] on above:Order Comment: Specimen Type: BLOOD SPECIMENOrdering Facility: [facility] Address:[address] [place], [place] [address]Performed By: #### 03428-0 ####[facility] LABCLIA [id number] [place], [place] [address]Jqccaaweql [Mass/Vol]1.46 mg/dL High0.73-1.22[facility] on above:Order Comment: Specimen Type: BLOOD SPECIMENOrdering Facility: [facility] Address:[address] [place], [place] [address]Performed By: #### 09477-4 ####[facility] LABCLIA [id number] [place] [address] eGFRcr SerPlBld CKD-EPI 431753 mL/min/1.73m???Low>=60[facility] Comment on above:Order Comment: Specimen Type: BLOOD SPECIMENOrdering Facility: [facility] Address:[address] [place], [place] [address]Result Comment: Estimated Glomerular Filtration Rate (eGFR) is calculated using the 2020 CKD-EPI creatinine equation. This equation utilizes serum creatinine, sex, and age as parameters. The creatinine assay has traceable calibration to isotope dilution-mass spectrometry. Refer to KDIGO guidelines for clinical interpretation. In patients with unstable renal function, e.g. those with acute kidney injury, the eGFR may not accurately reflect actual GFR.Performed By: #### 22684-0 ####[facility] LABCLIA [id number] [place], [place] [address]Phzfiss [Mass/Vol]116 mg/vAIxvq90-30AtavywpdjMartin [facility] on above:Order Comment: Specimen Type: BLOOD SPECIMENOrdering Facility: [facility] Address:[address] [place], [place] [address]Result Comment: The English Diabetes Association (ADA) provides guidance for cutoff [...] Standards of Medical Care in Diabetes 2016, [employer] Diabetes Association. Diabetes Care. 2016.39(Suppl 1).Performed By: #### 63341-2 ####[facility] LABCLIA [id number] [place], [place] [address]Eqiffhlqb [Moles/Vol]3.9 mmol/LNormal3.7-5.1[facility] on above:Order Comment: Specimen Type: BLOOD SPECIMENOrdering Facility: [facility] Address:[address] [place], [place] [address]Performed By: #### 88525-9 ####[facility] LABCLIA [id number] [place], [place] [address]Knmhbff [Mass/Vol]7.4 g/dLNormal6.3-8.0[facility] on above:Order Comment: Specimen Type: BLOOD SPECIMENOrdering Facility: [facility] Address:[address] [place], [place] [address]Performed By: #### 96862- 8 ####[facility] LABCLIA [id number] [place], [place] [address]Epload [Moles/Vol]138 mmol/RQjhhdy590-348XrcmczqlmMartin [facility] Hospital on above:Order Comment: Specimen Type: BLOOD SPECIMENOrdering Facility: [facility] Address:[address] [place], [place] [address]Performed By: #### 15901-1 ####[facility] LABCLIA [id number] [place], [place] [address]Wbmp nitrogen [Mass/Vol]56 mg/dLHigh9-24[facility] on above:Order Comment: Specimen Type: BLOOD SPECIMENOrdering Facility: [facility] Address:[address] [place], [place] [address]Performed By: #### 26748-3 ####[facility] LABCLIA [id number] [place] [address] Ferritin SerPl-mCncon 92-82-7439Qddknogg [Mass/Vol]71.9 ng/dXJpspgc03.3-565.7 [facility] on above:Order Comment: Specimen Type: BLOOD SPECIMENOrdering Facility: [facility] Address:[address] [place], [place] [address]Performed By: #### 56650-1, 1825-9, 2324-2, 2276-4 ####[facility] LABCLIA [id number] [address] OF [facility]USGGT SerPl-cCncon 59-16-0683Uxwzw glutamyl transferase [Catalytic activity/Vol]123 U/ZBtma00-79NmfbmcjuxMartin [facility] on above:Order Comment: Specimen Type: BLOOD SPECIMENOrdering Facility: [facility] Address:[address] [place], [place] [address]Performed By: #### 86486-8, 1825-9, 2324-2, 2276-4 ####[facility] LABCLIA [id number] [address] STATES OF AMERICAHBV core Ab Ser Qlon 62-34-2063ULS core Ab Ql (S) NegativeNormalNegativeMartin [facility] on above:Order Comment: Specimen Type: BLOOD SPECIMENOrdering Facility: [facility] Address:[address] [place], [place] [address]Result Comment: No evidence of current or past infection with Hepatitis B virus. Should recent infection be suspected, repeat testing may be considered 3-4 weeks after this draw.Performed By: #### 97837-8, 14299-7, 5-3 ####[facility] LABIA [id number] STATES OF [place] HBV surface Ab Ql (S)on 41-95-7520KQC surface Ab Qn (S)<8.00NormSt. Mary's Medical Center on above:Order Comment: Specimen Type: BLOOD SPECIMENOrdering Facility: [facility] Address:[address] [place] [address] Comment: <8 mIU/mL: No serological evidence of immunity to Hepatitis B Virus.>/= 8 to <12 mIU/mL: No serological evidence of immunity to Hepatitis B Virus.>/= 12 mIU/mL: Consistentwith serological evidence of immunity to Hepatitis B Virus.Performed By: #### 82947-5, 64632-4, 5194-3 ####[facility] LABIA [id number] STATES OF AMERICAHBV surface Ab Ser Qlon 21-63-2419WOB surface Ab Ql (S)NegativeNormalCUC Medical Center on above:Order Comment: Specimen Type: BLOOD SPECIMENOrdering Facility: [facility] Address:[address] [place] [address] Comment: No serological evidence of immunity to Hepatitis B Virus.Performed By: #### 67069-9, 83314-2, 5-3 ####[facility] LABIA [id number] VIL[place] [address] [place] HBV surface Ag Ser Qlon 49-20-0699IBU surface Ag Ql (S)NegativeNormalNegative [facility] on above:Order Comment: Specimen Type: BLOOD SPECIMENOrdering Facility: [facility] Address:[address] [place], [place] [address]Performed By: #### 03135-9, 33515-7, 5195-3 ####[facility] LABCLIA [id number] STATES OF AMERICAHCV Ab Ser Qlon 09-65-7689RYP Ab Ql (S)Negative NormalNegativeMartin [facility] on above:Order Comment: Specimen Type: BLOOD SPECIMENOrdering Facility: [facility] Address:[address] [place], [place] [address]Result Comment: The result suggests no evidence of infection with Hepatitis C virus. Should recent infection be suspected, repeat testing may be considered 4-6 weeks after this draw.Performed By: #### 84173-3 ####[facility] LABIA [id number] [place] [address] [place] OF AMERICAIron and Iron binding capacity panelon 90-02-2327Osdl [Mass/Vol]63 ug/bIXcottd90-770HnhzxjftvMartin [facility] on above:Order Comment: Specimen Type: BLOOD SPECIMENOrdering Facility: [facility] Address:[address] [place], [place] [address]Performed By: #### 23697-3, 1829, 4-2, 6-4 ####[facility] LABIA [id number] [place] [address] [place] AMERICAIron binding capacity [Mass/Vol]379 ug/gSOjlxau823-282 [facility] on above:Order Comment: Specimen Type: BLOOD SPECIMENOrdering Facility: [facility] Address:[address] [place], [place] [address]Performed By: #### 46282-5, 1829, 2324-2, 2276-4 ####[facility] LABCLIA [id number] [place] [address] [place] OF AMERICAIron/TIBC [Molar ratio]16.6 % Drifly22.0-57.0[facility] on above:Order Comment: Specimen Type: BLOOD SPECIMENOrdering Facility: [facility] Address:[address] [place], [place] [address]Performed By: #### 56798-0, 1825-9, 2323-2, 2275-09 ####[facility] LABCLIA [id number] [place] [address] [place] OF [facility] WEST CAMPUSLIVER-KIDNEY MICROSOME ANTIBODY, IGGon 46-22-4696AFYXG-KIDNEY MICROSOMAL ABS<1:20Normal<1:20[facility] on above:Order Comment: Specimen Type: BLOOD SPECIMENOrdering Facility: [facility] Address:[address] [place], [place] [address]Result Comment: INTERPRETIVE INFORMATION: Lvqoh-Rdyeeh-Oixkvsjno Abs, IgGLiver-Kidney Microsome IgGantibody (anti-LKM), as detected byindirect immunofluorescent antibody (IFA) techniques, may beobserved in patients with autoimmune hepatitis type 2 (AIH-2),AIH-2 associated with idjnjpaaufiqwhbbdhrioplntuzo-dfzgukqqhvn-bwdowbofjc dystrophy (APECED),viral hepatitis C or D, and some forms of drug-induced hepatitis.This IFA does not differentiate among the four types of LKMantibodies (LKM-1, LKM-2,LKM-3, and a fourth type that nmaaagbvhmCTL3I3 and CY antigens). Of these, anti-LKM-1 (giyqnxrsbmY286ZDP0) IgG antibodies are considered specific for AIH-2.This test was developed and its performance characteristicsdetermined by [facility]. It has not been cleared orapproved by the [place] Food and Drug Administration. This test wasperformed in a CLIA certified laboratory and is intended forclinical purposes.Performed By: [facility] [place] [address]Rwfxtgwcgj Director: Anne-Marie Correa MD, PhDCLIA Number: [id number] By: #### LKM ####[facility] [id number] [place], [place] [address]Qfuzuoknxjsu Ab IF Ql (S)on 11-50-9511Pninqfnawddq M2 Ab IA Qn (S)4.9 UnitsNormal<=20.0[facility] HospitalComment on above: Order Comment: Specimen Type: BLOOD SPECIMENOrdering Facility: [facility] Address:[address] [place], [place] [address]Performed By: #### 93133- 1, 95768-2 ####[facility] LABIA [id number] [address]Mitochondria M2 Ab Ql (S)NegativeNormalNegativePromedica Fostoria Community HospitalComment on above:Order Comment: Specimen Type: BLOOD SPECIMENOrdering Facility: [facility] Address:[address] [place], [place] [address]Result Comment: Anti- mitochondrial antibody test is used as an aid in diagnosis of primary biliary c holangitis. Clinical correlation is required.Performed By: #### 85103-2, 27599-6 ####[facility] LABIA [id number]PT panel Coag (PPP)on 01-08-2025 INR Coag (PPP) [Relative time]1.1 {INR}Normal0.9-1.3C[facility] Comment on above:Order Comment: Specimen Type: BLOOD SPECIMENOrdering Facility: [facility] Address:[address] [place], [place] [address]Result Comment: Vitamin K Antagonist (VKA) Therapeutic Range: INR 2 to 3 (Target INR of 2.5)Note: For patients treated with VKA drugs, such as warfarin, the [employer] 2012 Guideline recommends [...] al. Chest 2012, 141:7S-47SNishimura RA, et al. [facility] 2017, 70: 252-289Performed By: #### 70949-4 ####[facility] [id number] [address] STATES OF AMERICAPT Coag (PPP) [Time] 12.2 sNormal9.7-13.0[facility] on above:Order Comment: Specimen Type: BLOOD SPECIMENOrdering Facility: [facility] Address:[address] [place], [place] [address]Performed By: #### 19661-0 ####[facility] [id number] [place] [address] [place] AMERICASmooth muscle Ab Ql (S)on 17-15-4737QNSXC SMOOTH MUSCLE IGG QUALITATIVENegativeNormalNegativeMartin [facility] on above:Order Comment: Specimen Type: BLOOD SPECIMENOrdering Facility: [facility] Address:[address] [place], [place] [address]Performed By: #### 24061-7, 75341-1 ####[facility] [id number] [address] STATES OF AMERICAACTIN SMOOTH MUSCLE IGG ZGUDACHJNGJI00 UnitsNormal<20Cle[facility] on above:Order Comment: Specimen Type: BLOOD SPECIMENOrdering Facility: [facility] Address:[address] [place], [place] [address]Performed By: #### 27842-4, 00297-4 ####[facility] [id number] [address] [place] [address] [place] OF AMERICAXR CHEST 2V FRONTAL/LATon 52-00-6544NJ CHEST 2V FRONTAL/LAT NormalPromedica Fostoria Community HospitalBalourdes hospital metabolic 2000 panelon 67-12-7996Zprzh gap [Moles/Vol]12 mmol/LNormal8-15[facility] on above:Order Comment: Specimen Type: BLOOD SPECIMENOrdering Facility: [facility] Address:[address] [place], [place] [address]Performed By: #### 05425- 2 ####[facility] LABCLIA [id number] [place] [id number] [place] AMERICACalcium [Mass/Vol]9.6 mg/dLNormal 8.5-10.2[facility] on above:Order Comment: Specimen Type: BLOOD SPECIMENOrdering Facility: [facility] Address:[address] [place], [place] [address]Performed By: #### 79661-2 ####[facility] LABCLIA [id number] [place] [address] [place] OF AMERICAChloride [Moles/Vol]98 mmol/VIwgqpt47-375JcjvlfefxMartin [facility] on above:Order Comment: Specimen Type: BLOOD SPECIMENOrdering Facility: [facility] Address:[address] [place], [place] [address]Performed By: #### 42480-4 ####[facility] LABCLIA [id number] [place] [address] [place] AMERICACO2 [Moles/Vol]26 mmol/MRmhilk81-87NjicdsjrrMartin [facility] on above:Order Comment: Specimen Type: BLOOD SPECIMENOrdering Facility: [facility] Address:[address] [place], [place] [address]Performed By: #### 88392-5 ####[facility] LABCLIA [id number] [place] [id number] [place] AMERICACreatinine [Mass/Vol] 1.60 mg/dLHigh0.73-1.22[facility] on above:Order Comment: Specimen Type: BLOOD SPECIMENOrdering Facility: [facility] Address:[address] [place], [place] [address]Performed By: #### 89108-8 ####[facility] LABCLIA [id number] [place] [id number] [place] AMERICACreatinine and Glomerular filtration rate.predicted panel (S/P/Bld)45 mL/min/1.73m???Low>=60[facility] on above:Order Comment: Specimen Type: BLOOD SPECIMENOrdering Facility: [facility] Address:[address] [place], [place] [address]Result Comment: Estimated Glomerular Filtration Rate (eGFR) is calculated using the 2020 CKD-EPI creatinine equation. This equation utilizes serum creatinine, sex, and age as parameters. The creatinine assay has traceable calibration to isotope dilution-mass spectrometry. Refer to KDIGO guidelines for clinical interpretation. In patients with unstable renal function, e.g. those with acute kidney injury, the eGFR may not accurately reflect actual GFR.Performed By: #### 81505-0 ####[facility] LABIA [id number] [place] [id number] [place] AMERICAGlucose [Mass/Vol]119 mg/ySFtqu47-53OcfvqdemyMartin Memorial Hospital on above:Order Comment: Specimen Type: BLOOD SPECIMENOrdering Facility: [facility] Address:[address] [place], [place] [address]Result Comment: The English Diabetes Association (ADA) provides guidance for cutoff [...] Standards of Medical Care in Diabetes 2016, English Diabetes Association. Diabetes Care. 2016.39(Suppl 1).Performed By: #### 14550-3 ####[facility] LABCLIA [id number] [place] [address] [place] AMERICAPotassium [Moles/Vol]4.3 mmol/LNormal3.7-5.1CUniversity [facility]als [facility] Comment on above:Order Comment: Specimen Type: BLOOD SPECIMENOrdering Facility: [facility] Address:[address] [place] [address] Performed By: #### 29552-8 ####[facility] LABIA [id number] [place] [address] [place] Sodium [Moles/Vol]136 mmol/VOsjewe082-605SmlwkfprsPromedica Fostoria Community HospitalComment on above:Order Comment: Specimen Type: BLOOD SPECIMENOrdering Facility: [facility] Address:[address] [place], [place] [address]Performed By: #### 09247-9 ####[facility]ITALIA [id number] [place] [address] [place] AMERICAUrea nitrogen [Mass/Vol]45 mg/dLHigh9-24Prom[facility]ostoria Community HospitalComment on above:Order Comment: Specimen Type: BLOOD SPECIMENOrdering Facility: [facility] Address:[address] [place], [place] [address]Performed By: #### 33472- 2 ####[facility] LABIA [id number] [place] [id number] [place] AMERICAPVR LEG ROCIO VAS LABon 12-16-2024 PVR LEG ROCIO VAS LABNormalCUniversity Hospitals Cleveland Medical CenterUS VENOUS INCOMPETENCY ROCIO VAS LABon 69-99-5378EA VENOUS INCOMPETENCY ROCIO VAS LABNormalCUniversity Hospitals Cleveland Medical CenterCNOVon 17-29-9817AGJOHwojmgWuhjhlmei Clinic ClevelandCNPNon 11-23-2024 CNPNNormalPromedica Fostoria Community HospitalUS ABD RIGHT UPPER QUADRANTon 47-02-6454PR ABD RIGHT UPPER QUADRANT* * *Final Report* [...] infiltrative diseases or in the post-prandial state. Manager Clinical Services: PSCAc Transcribe Date/Time: Nov 26 2024 7:29A Dictated by : KRISTINA SALINAS MD This examination was interpreted and the report reviewed and electronically signed by: KRISTINA SALINAS MD on Nov 26 2024 7:35AM EST [id number] Medical Specialty Hospital - YoungstownUS ELASTOGRAPHY LIVERon 99-30-7571RY ELASTOGRAPHY LIVER* * *Final Report* * * [...] infiltrative diseases or in the post-prandial state. Manager Clinical Services: ALONSO Transcribe Date/Time: Nov 26 2024 7:29A Dictated by : KRISTINA SALINAS MD This examination was interpreted and the report reviewed and electronically signed by: KRISTINA SALINAS MD on Nov 26 2024 7:35AM EST [id number] HealthXR CHEST 2V FRONTAL/LATon 11-23-2024 XR CHEST 2V FRONTAL/LATNormBethesda North HospitalXR Chest PA and Lateralon 72-70-9131VROEOXNKTT: See result. Manager Clinical Services: ALONSO Transcribe Date/Time: Nov 23 2024 1:39P Dictated by : CRISTOBAL ROACH MD This examination was interpreted and the report reviewed and electronically signed by: CRISTOBAL ROACH MD on Nov 23 2024 1:42PM [facility] DIVISION OF RADIOLOGY* * *Final [...] the left seventh rib. DIVISION OF RADIOLOGYProvider, [facility] [place] - 11/23/2024 * * *Final Report* * [...] left seventh rib. IMPRESSION IMPRESSION: See result. Manager Clinical Services: ALONSO Transcribe Date/Time: Nov 23 2024 1:39P Dictated by : CRISTOBAL ROACH MD This examination was interpreted and the report reviewed and electronically signed by: CRISTOBAL ROACH MD on Nov 23 2024 1:42PM EST [facility] CenterRadiology Study observation (narrative)[facility] CenterXR Chest PA and LateralOrdered By: Ccf Provider on 55-54-7025Fbzssncie ClinicCNOVon 52-34-7080EGIWCucoogVuatlgnhn Clinic ClevelandCNOVon 76-13-4864HJUNKketdq [facility] HospitalOPERATIVE NOon 28-43-6242BDWPKMTVJ NONormalPromedica Fostoria Community HospitalUS Chest limitedon 32-22-6703Jkshjsvaa ClinicRadiology Study observation (narrative)[facility] CenterXR CHEST 1V FRONTAL PORTon 18-08-9162DL CHEST 1V FRONTAL PORTNormalCUniversity Hospitals Cleveland Medical CenterXR CHEST 2V FRONTAL/LATon 62-83-9156TZ CHEST 2V FRONTAL/LATNormalCUniversity Hospitals Cleveland Medical CenterXR Chest PA and Lateralon 10-55-3508ZMQHKMERTY: See result Manager Clinical Services: ALONSO Transcribe Date/Time: Nov 19 2024 3:58P Dictated by : KYLER NICHOLAS MD This examination was interpreted and the report reviewed and electronically signed by: KYLER NICHOLAS MD on Nov 19 2024 4:01PM [facility] DIVISION OF RADIOLOGY* * *Final [...] of the left rib/ribs. DIVISION OF RADIOLOGYProvider, [facility] [place] - 11/19/2024 * * *Final Report* * [...] the left rib/ribs. IMPRESSION IMPRESSION: See result Manager Clinical Services: PSCAc Transcribe Date/Time: Nov 19 2024 3:58P Dictated by : KYLER NICHOLAS MD This examination was interpreted and the report reviewed and electronically signed by: KYLER NICHOLAS MD on Nov 19 2024 4:01PM [facility] CenterRad[facility] Study observation (narrative)[facility] Chest PA and LateralOrdered By: Ccf Provider on 82-84-2728Tbuuqcxyr ClinicCNPNon 81-76-1452BCOKXsvaaeXsljnazqr Clinic ClevelandCOPPER BLOODon 84-82-0778Zeqexg [Mass/Vol]159 ug/vIJtsg90-171KvolgtjktMartin Memorial Hospital on above:Order Comment: Specimen Type: BLOOD SPECIMENOrdering Facility: [facility] Address:[address] [place], [place] [address]Result Comment: This test was developed, and its performance characteristics determined by the [facility] Department of Pathology and Laboratory Medicine. It has not been cleared or approved bythe FDA. The [facility] Department of Pathology and Laboratory Medicine is regulated under CLIA as qualified to perform high- complexity testing. This test is used for clinical purposes. It should not be regarded as investigational or for research.Performed By: #### COPPER ####[facility] LABCLIA [id number] [place] [address] [place] AMERICAComprehensive metabolic 2000 panelon 96-35-8771Vvhuopw [Mass/Vol]4.1 g/dLNormal3.9-4.9CKettering Health Main Campusment on above:Order Comment: Specimen Type: BLOOD SPECIMENOrdering Facility: [facility] Address:[address] [place], [place] [address]Performed By: #### 06435-8, 79627-2 ####[facility] LABIA [id number] [address] [address] [place] OF AMERICAALP [Catalytic activity/Vol]112 U/HUlpmhz07-189IyepiovujPromedica Fostoria Community HospitalComsurgeons choice medical center on above:Order Comment: Specimen Type: BLOOD SPECIMENOrdering Facility: [facility] Address:[address] [place], [place] [address]Performed By: #### 37042-5, 62060-9 ####[facility] LABIA [id number] [address] [address] [place] AMERICAALT [Catalytic activity/Vol]34 U/IUzfsuu74-04MddfdcmlhPromedica Fostoria Community Hospital Comment on above:Order Comment: Specimen Type: BLOOD SPECIMENOrdering Facility: [facility] Address:[address] [place] [address] Performed By: #### 09536-9, 91502-4 ####[facility] LABCLIA [id number] [address] [id number], [place] [address] [place] Anion gap [Moles/Vol]12 mmol/LNormal8-15[facility] on above:Order Comment: Specimen Type: BLOOD SPECIMENOrdering Facility: [facility] Address:[address] [place], [place] [address]Performed By: #### 79326-1, 94926-0 ####[facility] LABCLIA [id number] [facility] AVENUEDESK [id number] [place], [place] [address] [place] OF AMERICAAST [Catalytic activity/Vol]47 U/JLbih79-90TbytvhkbgMartin Memorial Hospital on above:Order Comment: Specimen Type: BLOOD SPECIMENOrdering Facility: [facility] Address:[address] [place], [place] [address]Performed By: #### 41374- 8, 38967-5 ####[facility] LABCLIA [id number] [address] [place] [id number] [place] AMERICABilirubin [Mass/Vol]0.8 mg/dLNormal0.2-1.3[facility] on above:Order Comment: Specimen Type: BLOOD SPECIMENOrdering Facility: [facility] Address:[address] [place], [place] [address]Performed By: #### 71692-1, 00425-7 ####[facility] LABCLIA [id number] [facility]ENUED[facility] [id number] [place], [place] [address] [place] AMERICACalcium [Mass/Vol]9.5 mg/dLNormal 8.5-10.2[facility] on above:Order Comment: Specimen Type: BLOOD SPECIMENOrdering Facility: [facility] Address:[address] [place], [place] [address]Performed By: #### 41288-4, 47813-4 ####[facility] LABCLIA [id number] [facility]AMPUSLIJAMES [place] [address] [place] AMERICAChloride [Moles/Vol]97 mmol/CVkl05-933ZjwaqiknnMartin Memorial Hospital on above:Order Comment: Specimen Type: BLOOD SPECIMENOrdering Facility: [facility] Address:[address] [place], [place] [address]Performed By: #### 50759-7, ####[facility] LABCLIA [id number] [place] [address] [place] AMERICACO2 [Moles/Vol]30 mmol/SVurdvu26-81EhvftxcbkPromedica Fostoria Community Hospital Comment on above:Order Comment: Specimen Type: BLOOD SPECIMENOrdering Facility: [facility] Address:[address] [place], [place] [address] Performed By: #### 24807-4, ####[facility] LABCLIA [id number] [place] [address] [place] Creatinine [Mass/Vol]1.38 mg/dLHigh0.73-1.22[facility] on above:Order Comment: Specimen Type: BLOOD SPECIMENOrdering Facility: [facility] Address:[address] [place], [place] [address]Performed By: #### 63284-4, ####[facility] LABCLIA [id number] [place] [address] [place] AMERICACreatinine and Glomerular filtration rate.predicted panel (S/P/Bld)54 mL/min/1.73m???Low>=60 [facility] on above:Order Comment: Specimen Type: BLOOD SPECIMENOrdering Facility: [facility] Address:[address] [place], [place] [address]Result Comment: Estimated Glomerular Filtration Rate (eGFR) is calculated using the 2020 CKD-EPI creatinine equation. This equation utilizes serum creatinine, sex, and age as parameters. The creatinine assay has traceable calibration to isotope dilution-mass spectrometry. Refer to KDIGO guidelines for clinical interpretation. In patients with unstable renal function, e.g. those with acute kidney injury, the eGFR may not accurately reflect actual GFR.Performed By: #### 40568-9, 03364-5 ####[facility] LABIA [id number] [place] [address] [place] AMERICAGlucose [Mass/Vol]104 mg/xVTxzs16-28SqrtigkekPromedica Fostoria Community Hospital Comment on above:Order Comment: Specimen Type: BLOOD SPECIMENOrdering Facility: [facility] Address:[address] [place], [place] [address]Result Comment: The English Diabetes Association (ADA) provides guidance for cutoff [...] Standards of Medical Care in Diabetes 2016, English Diabetes Association. Diabetes Care. 2016.39(Suppl 1).Performed By: #### 95311-1, 61787-4 ####[facility] LABIA [id number] [address] [address] [place] AMERICAPotassium [Moles/Vol]3.8 mmol/LNormal3.7-5.1CKettering Health Main Campusment on above:Order Comment: Specimen Type: BLOOD SPECIMENOrdering Facility: [facility] Address:[address] [place] [id number] By: #### 47185-4, ####[facility] [id number] [address] [address] [place] AMERICAProtein [Mass/Vol]7.3 g/dLNormal6.3-8.0[facility] on above:Order Comment: Specimen Type: BLOOD SPECIMENOrdering Facility: [facility] Address:[address] [place] [address] Performed By: #### 87128-2, 55698-0 ####[facility] LABCLIA [id number] [place] [address] [place] Sodium [Moles/Vol]139 mmol/GRlerrj977-993TuyzjxgxfMartin Memorial Hospital on above:Order Comment: Specimen Type: BLOOD SPECIMENOrdering Facility: [facility] Address:[address] [place], [place] [address]Performed By: #### 35045-0, ####[facility] LABIA [id number] [place] [address] [place] AMERICAUrea nitrogen [Mass/Vol]55 mg/dLHigh9-24[facility] on above:Order Comment: Specimen Type: BLOOD SPECIMENOrdering Facility: [facility] Address:[address] [place], [place] [address]Performed By: #### 59525- 8, 10866-3 ####[facility] LABIA [id number] [place] [address] [place] AMERICAHAV IgM Ser Qlon 30-64-1520KUY IgM Ql (S)NegativeNormalNegativeMartin Memorial Hospital on above:Order Comment: Specimen Type: BLOOD SPECIMENOrdering Facility: [facility] Address:[address] [place], [place] [address]Result Comment: No evidence of recent infection with Hepatitis A virus.Performed By: #### 00052-6, 5195-3, 53818-3 ####[facility] LABIA [id number], [place] [address] [place] HBV core IgM Ser Qlon 54-96-7850YIR core IgM Ql (S)NegativeNormalNegative [facility] on above:Order Comment: Specimen Type: BLOOD SPECIMENOrdering Facility: [facility] Address:[address] [place], [place] [address]Result Comment: No evidence of recent infection with Hepatitis B virus. Should recent infection be suspected, repeat testing may be considered 3-4 weeks after this draw.Performed By: #### 09063-3, 5195-3, 44090-3 ####[facility] LABCLIA [id number] [address] [place] AMERICAHBV surface Ag Ser Qlon 40-51-2640UCR surface Ag Ql (S)NegativeNormalNegativePromedica Fostoria [facility] Hospital Comment on above:Order Comment: Specimen Type: BLOOD SPECIMENOrdering Facility: [facility] Address:[address] [place] [address] Performed By: #### 70724-8, 5195-3, 77505-2 ####[facility] LABCLIA [id number] [address] [place] AMERICAHCV Ab Ser Qlon 31-10-3103NUM Ab Ql (S)NegativeNormalNegativePromedica Fostoria Community HospitalComment on above:Order Comment: Specimen Type: BLOOD SPECIMENOrdering Facility: [facility] Address:[address] [place], [place] [address]Result Comment: The result suggests no evidence of infection with Hepatitis C virus. Should recent infection be suspected, repeat testing may be considered 4-6 weeks after this draw.Performed By: #### 05901-4 ####[facility] LABIA [id number] [place] [address] [place] AMERICAHCV RNA BRYN+probe Qnon 11-17-2024 HCV RNA BRYN+probe QlNot detectedNormalNot detectedPromedica Fostoria Community Hospital Comment on above:Order Comment: Specimen Type: BLOOD SPECIMENOrdering Facility: [facility] Address:[address] [place] [address] Performed By: #### 86970-1 ####[facility] LABCLIA [id number] [place] [address] [place] Iron and Iron binding capacity panelon 03-97-8077Aliu [Mass/Vol]72 ug/dLNormal 41-186[facility] on above:Order Comment: Specimen Type: BLOOD SPECIMENOrdering Facility: [facility] Address:[address] [place], [place] [address]Performed By: #### 08217-9 ####[facility] LABCLIA [id number] [place] [address] [place] [facility] WEST CAMPUSIron binding capacity [Mass/Vol]321 ug/iKWmhtnh986-428DpnikqhsbMartin Memorial Hospital on above:Order Comment: Specimen Type: BLOOD SPECIMENOrdering Facility: [facility] Address:[address] [place], [place] [address]Performed By: #### 17527-2 ####[facility] LABIA [id number] [address] STATES [facility]GEN[facility]ASS[facility]T HOSPITALIron/TIBC [Molar ratio]22.4 %Ativcx29.0-57.0[facility] Comment on above:Order Comment: Specimen Type: BLOOD SPECIMENOrdering Facility: [facility] Address:[address] [place] [address] Performed By: #### 74943-6 ####[facility]PITALIA [id number] [place] [address] [place] Magnesium SerPl-mCncon 47-92-9111Cbzwejivg [Mass/Vol]2.3 mg/dLNormal1.7-2.3 [facility] on above:Order Comment: Specimen Type: BLOOD SPECIMENOrdering Facility: [facility] Address:[address] [place], [place] [address]Performed By: #### 72058-9, 36713-9 ####[facility] LABIA [id number] [address] STATES OF [facility] WEST CAMPUSCB W Auto Differential panel (Bld)on 85-13-3981Svdmwkhax (Bld) [#/Vol]10*3/uLNormal<0.11[facility] on above:Order Comment: Specimen Type: BLOOD SPECIMENOrdering Facility: [facility] Address:[address] [place], [place] [address]Performed By: #### 00915- 8 ####[facility] LABCLIA [id number] [address], [facility]95 [place] AMERICABasophils/100 WBC (Bld)0.2 % NormalMartin Memorial Hospital on above:Order Comment: Specimen Type: BLOOD SPECIMENOrdering Facility: [facility] Address:[address] [place], [place] [address]Performed By: #### 86064-8 ####[facility] LABCLIA [id number] [address], [place] [address] [place] AMERICADifferential cell count method Nom (Bld)AutoNormalCUC Medical Center on above:Order Comment: Specimen Type: BLOOD SPECIMENOrdering Facility: [facility] Address:[address] [place], [place] [address]Performed By: #### 85943-7 ####[facility] LABCLIA [id number] [address], [place] [address] [place] AMERICAEosinophils (Bld) [#/Vol]10*3/uLNormal<0.46[facility] Comment on above:Order Comment: Specimen Type: BLOOD SPECIMENOrdering Facility: [facility] Address:[address] [place] [address] Performed By: #### 71898-3 ####[facility] LABCLIA [id number] [address], [facility]95 [place] Eosinophils/100 WBC (Bld)0.0 %NormalMartin Memorial Hospital on above: Order Comment: Specimen Type: BLOOD SPECIMENOrdering Facility: [facility] Address:[address] [place], [place] [address]Performed By: #### 87539- 8 ####[facility] LABCLIA [id number] [place] [address] [place] AMERICAErythrocyte distribution width (RBC) [Ratio]16.6 %High11.5-15.0[facility] on above:Order Comment: Specimen Type: BLOOD SPECIMENOrdering Facility: [facility] Address:[address] [place], [place] [address]Performed By: #### 07125- 8 ####[facility] LABNOR[facility] [id number] [address] OF AMERICAHematocrit (Bld) [Volume fraction]37.1 %Low39.0-51.0[facility] on above:Order Comment: Specimen Type: BLOOD SPECIMENOrdering Facility: [facility] Address:[address] [place], [place] [address]Performed By: #### 62172- 8 ####[facility] [id number] [address] STATES OF AMERICAHemoglobin (Bld) [Mass/Vol]12.3 g/dLLow13.0-17.0[facility] on above:Order Comment: Specimen Type: BLOOD SPECIMENOrdering Facility: [facility] Address:[address] [place], [place] [address]Performed By: #### 40983-2 ####[facility] LABIA [id number] [place] [address] [place] AMERICAImmature granulocytes (Bld) [#/Vol]0.16 10*3/uLHigh<0.10[facility] on above:Order Comment: Specimen Type: BLOOD SPECIMENOrdering Facility: [facility] Address:[address] [place], [place] [address]Performed By: #### 42920- 8 ####[facility] LABIA [id number] [place] [address] [place] AMERICAImmature granulocytes/100 WBC (Bld)1.8 %NormalMartin Memorial Hospital on above:Order Comment: Specimen Type: BLOOD SPECIMENOrdering Facility: [facility] Address:[address] [place], [place] [address]Performed By: #### 21048-2 ####[facility] LABCLIA [id number] [place] [address] [place] AMERICALymphocytes (Bld) [#/Vol]0.91 10*3/uLLow1.00-4.00[facility] on above:Order Comment: Specimen Type: BLOOD SPECIMENOrdering Facility: [facility] Address:[address] [place], [place] [address]Performed By: #### 70925-5 ####[facility] LABCLIA [id number] [place] [address] [place] AMERICALymphocytes/100 WBC (Bld)10.4 % NormalMartin Memorial Hospital on above:Order Comment: Specimen Type: BLOOD SPECIMENOrdering Facility: [facility] Address:[address] [place], [place] [address]Performed By: #### 77501-4 ####[facility] LABIA [id number] [place] [address] [place] AMERICAMCH (RBC) [Entitic mass]32.2 kxAgofvi39.0-34.0[facility] on above:Order Comment: Specimen Type: BLOOD SPECIMENOrdering Facility: [facility] Address:[address] [place], [place] [address]Performed By: #### 43366-2 ####[facility] LABIA [id number] [place] [address] [place] MCHC (RBC) [Mass/Vol]33.2 g/tZXwufdd86.5-36.0[facility] on above:Order Comment: Specimen Type: BLOOD SPECIMENOrdering Facility: [facility] Address:[address] [place] [address] Performed By: #### 28703-2 ####[facility] LABCLIA [id number] [place] [address] [place] MCV (RBC) [Entitic vol]97.1 hDIhinxv38.0-100.0[facility] on above:Order Comment: Specimen Type: BLOOD SPECIMENOrdering Facility: [facility] Address:[address] [place] [address] Performed By: #### 56322-3 ####[facility] LABIA [id number] [place] [address] [place] Monocytes (Bld) [#/Vol]0.67 10*3/uLNormal<0.87[facility] on above:Order Comment: Specimen Type: BLOOD SPECIMENOrdering Facility: [facility] Address:[address] [place] [address] Performed By: #### 73193-9 ####[facility] LABIA [id number] [place] [address] [place] Monocytes/100 WBC (Bld)7.6 %NormalMartin Memorial Hospital on above: Order Comment: Specimen Type: BLOOD SPECIMENOrdering Facility: [facility] Address:[address] [place], [place] [address]Performed By: #### 66606- 8 ####[facility] LABIA [id number] [place] [address] [place] AMERICANeutrophils (Bld) [#/Vol]7.03 10*3/uLNormal1.45-7.50[facility] on above:Order Comment: Specimen Type: BLOOD SPECIMENOrdering Facility: [facility] Address:[address] [place], [place] [address]Performed By: #### 41521-8 ####[facility] LABIA [id number] [place] [address] [place] AMERICANeutrophils/100 WBC (Bld)80.0 % NormalMartin Memorial Hospital on above:Order Comment: Specimen Type: BLOOD SPECIMENOrdering Facility: [facility] Address:[address] [place], [place] [address]Performed By: #### 92012-5 ####[facility] LABCLIA [id number] [place] [address] [place] AMERICANucleated RBC (Bld) [#/Vol]10*3/uLNormal<0.01[facility] on above:Order Comment: Specimen Type: BLOOD SPECIMENOrdering Facility: [facility] Address:[address] [place], [place] [address]Performed By: #### 27448-1 ####[facility] LABIA [id number] [address], [place] [address] [place] Nucleated RBC/100 WBC (Bld) [Ratio]0.0 /100 WBCNormalCUniversity Hospitals [facility] Comment on above:Order Comment: Specimen Type: BLOOD SPECIMENOrdering Facility: [facility] Address:[address] [place] [address] Performed By: #### 28770-3 ####[facility] LABIA [id number] [place] [address] [place] Platelet mean volume (Bld) [Entitic vol]10.0 fLNormal9.0-12.7[facility] on above:Order Comment: Specimen Type: BLOOD SPECIMENOrdering Facility: [facility] Address:[address] [place], [place] [address]Performed By: #### 90243-9 ####[facility] LABIA [id number] [place] [address] [place] Platelets (Bld) [#/Vol]189 10*3/zVAtoyoq319-981QjwwqjkqpMartin Memorial Hospital on above:Order Comment: Specimen Type: BLOOD SPECIMENOrdering Facility: [facility] Address:[address] [place] [address] Performed By: #### 10746-3 ####[facility] LABCLIA [id number] [address] OF [place] RBC (Bld) [#/Vol]3.82 10*6/uLLow4.20-6.00[facility] Community HospitalComment on above:Order Comment: Specimen Type: BLOOD SPECIMENOrdering Facility: [facility] Address:[address] [place], [place] [address]Performed By: #### 36904-4 ####[facility] LABIA [id number] [address]ETWBC (Bld) [#/Vol]8.79 10*3/uLNormal3.70-11.00[facility] on above:Order Comment: Specimen Type: BLOOD SPECIMENOrdering Facility: [facility] Address:[address] [place], [place] [address]Performed By: #### 56888-7 ####[facility] LABIA [id number] [place] [address] [place] AMERICAComprehensive metabolic 2000 panelon 04-29-2191Kkaftqj [Mass/Vol]3.8 g/dLLow3.9-4.9CUniversity Hospitals Cleveland Medical Center Comment on above:Order Comment: Specimen Type: BLOOD SPECIMENOrdering Facility: [facility] Address:[address] [place] [address] Performed By: #### 72270-6, 65653-9, [id number], 83626-4 ####[facility]ITALIA [id number] [place] [address] [place] AMERICAALP [Catalytic activity/Vol]108 U/AYmycib15-443JzwpbyxhgMartin Memorial Hospital on above:Order Comment: Specimen Type: BLOOD SPECIMENOrdering Facility: [facility] Address:[address] [place], [place] [address]Performed By: #### 48718-8, 67028-3, VEN5530, 95057-9 ####[facility] LABCLIA [id number] [address] [address] [place] AMERICAALT [Catalytic activity/Vol]40 U/GJjrhbq73-41ExmuhebziMartin Memorial Hospital on above:Order Comment: Specimen Type: BLOOD SPECIMENOrdering Facility: [facility] Address:[address] [place], [place] [address]Performed By: #### 65632-2, 39449-7, [id number], 20274-1 ####[facility] LABCLIA [id number] [place] [id number] [place] AMERICAAnion gap [Moles/Vol]15 mmol/L Normal8-15[facility] on above:Order Comment: Specimen Type: BLOOD SPECIMENOrdering Facility: [facility] Address:[address] [place], [place] [address]Performed By: #### 78992-0, 33237-9, UII2321, 01238-4 ####[facility] LABCLIA [id number] [place] [id number] [place] STATES OF AMERICAAST [Catalytic activity/Vol]46 U/VSzmg92-53BdjmkxsutMartin Memorial Hospital on above:Order Comment: Specimen Type: BLOOD SPECIMENOrdering Facility: [facility] Address:[address] [place], [place] [address]Performed By: #### 59759- 9, 73401-7, SVC7771, 39278-4 ####[facility] LABCLIA [id number] [address] [address] [place] Bilirubin [Mass/Vol]0.7 mg/dLNormal0.2-1.3[facility] on above:Order Comment: Specimen Type: BLOOD SPECIMENOrdering Facility: [facility] Address:[address] [place], [place] [address]Performed By: #### 91216-1, 78202-1, [id number], 88102-7 ####[facility] LABCLIA [id number] [place] [address] [place] Calcium [Mass/Vol]8.8 mg/dLNormal8.5-10.2[facility] on above:Order Comment: Specimen Type: BLOOD SPECIMENOrdering Facility: [facility] Address:[address] [place], [place] [address]Performed By: #### 88835-1, 13129-9, ILV6627, 50965-0 ####[facility] LABIA [id number] [place] [address] [place] Chloride [Moles/Vol]103 mmol/OJdenmr61-770TdlkuhkbuMartin Memorial Hospital on above:Order Comment: Specimen Type: BLOOD SPECIMENOrdering Facility: [facility] Address:[address] [place], [place] [address]Performed By: #### 43747-3, 44082-9, BXD2422, 54680-7 ####[facility] LABIA [id number] [place] [address] [place] CO2 [Moles/Vol]23 mmol/RSnalrn60-89EozgemsamMartin Memorial Hospital on above: Order Comment: Specimen Type: BLOOD SPECIMENOrdering Facility: [facility] Address:[address] [place], [place] [address]Performed By: #### 56099- 9, 85087-9, XUZ2149, 02701-6 ####[facility] LABCLIA [id number] [address] [place] Creatinine [Mass/Vol]1.12 mg/dLNormal0.73-1.22[facility] on above:Order Comment: Specimen Type: BLOOD SPECIMENOrdering Facility: [facility] Address:[address] [place] [address] Performed By: #### 10667-4, 03941-7, HFH7725, 06092-5 ####[facility] LABCLIA [id number] [place] [address] [place] OF AMERICACreatinine and Glomerular filtration rate.predicted panel (S/P/Bld)69 mL/min/1.73m???Normal>=60[facility] on above: Order Comment: Specimen Type: BLOOD SPECIMENOrdering Facility: [facility] Address:[address] [place], [place] [address]Result Comment: Estimated Glomerular Filtration Rate (eGFR) is [...] not accurately reflect actual GFR.Performed By: #### 14134-6, 47439-2, BEG3150, 86996-6 ####[facility] LABCLIA [id number] [address] [address] [place] AMERICAGlucose [Mass/Vol]115 mg/nAOrin50-05SsdbkktmfMartin Memorial Hospital on above:Order Comment: Specimen Type: BLOOD SPECIMENOrdering Facility: [facility] Address:[address] [place], [place] [address]Result Comment: The English Diabetes Association (ADA) provides guidance for cutoff [...] Standards of Medical Care in Diabetes 2016, English Diabetes Association. Diabetes Care. 2016.39(Suppl 1). Performed By: #### 09034-5, 71100-8, KUS9389, 38574-7 ####[facility] LABCLIA [id number] [address] [address] [place] AMERICAPotassium [Moles/Vol]3.3 mmol/LLow3.7-5.1[facility] on above:Order Comment: Specimen Type: BLOOD SPECIMENOrdering Facility: [facility] Address:[address] [place], [place] [address]Performed By: #### 24090-8, 20207-3, LXD9226, 29595-9 ####[facility] LABCLIA [id number] [place] [address] [place] AMERICAProtein [Mass/Vol]6.7 g/dLNormal6.3-8.0[facility] on above:Order Comment: Specimen Type: BLOOD SPECIMENOrdering Facility: [facility] Address:[address] [place], [place] [address]Performed By: #### 28754-6, 45558-2, MVH5423, 75515-2 ####[facility] LABIA [id number] [place] [address] [place] AMERICASodium [Moles/Vol]141 mmol/ARwnaet676-957GfvcycleyMartin Memorial Hospital on above:Order Comment: Specimen Type: BLOOD SPECIMENOrdering Facility: [facility] Address:[address] [place], [place] [address]Performed By: #### 78732-7, 99337-4, SQX5291, 15012-4 ####[facility] LABIA [id number] [place] [address] [place] AMERICAUrea nitrogen [Mass/Vol]37 mg/dL High9-24[facility] on above:Order Comment: Specimen Type: BLOOD SPECIMENOrdering Facility: [facility] Address:[address] [place], [place] [address]Performed By: #### 01428-2, 84265-4, NKM4753, 44617-1 ####[facility] LABCLIA [id number] [address] [address] [place] OF AMERICAECG COMPLETEon 69-15-1598PEL COMPLETENoBarnesville HospitalED NOTEon 70-77-1314RR NOTEHNO ID: [id number] Author: EDWIN MANSFIELD RN Service: ? Author Type: Registered Nurse Type: ED Notes Filed: 11/12/2024 19:04 Note Text: Pt. D/c as ordered Pt .verbalized understanding of all d/c instructions. No further needs noted at this time.[facility]riners HospitalED NOTE NormalKettering Health Miamisburg PROGRESS NOTE (PROVIDER)on 44-69-2441ER PROGRESS NOTE (PROVIDER)[facility] PROV NOTEon 40-42-3738AG PROV NOTENormWestern Reserve Hospital Triage Noteon 56-20-6821EJ Triage NoteNoBarnesville HospitalHIGH SENSITIVITY TROPONIN T (INITIAL)on 11-67-0253Xvsmdqoo T.cardiac High sensitivity method [Mass/Vol]18 ng/LHigh<12[facility] on above:Order Comment: Specimen Type: BLOOD SPECIMENOrdering Facility: [facility] Address:[address] [place], [place] [address]Performed By: #### 85427- 9, 45488-8, GCJ3862, 21388-7 ####[facility] LABIA [id number] [place] [address] [place] [facility] WEST CAMPUSHIGH SENSITIVITY TROPONIN T (SECOND)on 81-85-6731Jhrrqkth T.cardiac High sensitivity method [Mass/Vol]17 ng/LHigh<12[facility] on above:Order Comment: Specimen Type: BLOOD SPECIMENOrdering Facility: [facility] Address:[address] [place], [place] [address]Performed By: #### [id number] ####[facility] LABCLIA [id number] [place] [address] [facility] WEST CAMPUSHIGH SENSITIVITY TROPONIN T (THIRD) 3 HRS AFTER INITIALon 69-23-2060Kzaxtfcp T.cardiac High sensitivity method [Mass/Vol]16 ng/LHigh<12[facility]ostoria Community HospitalComment on above:Order Comment: Specimen Type: BLOOD SPECIMENOrdering Facility: [facility] Address:[address] [place], [place] [address]Performed By: #### [id number] ####[facility] LABCLIA [id number] [place] [address] [place] AMERICAMagnesium SerPl-[facility] Hospital - Johnstownon 69-43-5331Kixlswgiq [Mass/Vol]2.1 mg/dLNormal1.7-2.3ClevelFirstHealth Moore Regional Hospital Comment on above:Order Comment: Specimen Type: BLOOD SPECIMENOrdering Facility: [facility] Address:[address] [place] [address] Performed By: #### 26857-0, 73568-4, EAZ1794, 78545-6 ####[facility] LABCLIA [id number] [place] [address] [place] AMERICANT-proBNP SerPl-[facility] 22-93-7649Bdujykmzmvf peptide.B prohormone N-Terminal [Mass/Vol]465 pg/mLHigh<125[facility] Comment on above:Order Comment: Specimen Type: BLOOD SPECIMENOrdering Facility: [facility] Address:[address] [place] [address] Performed By: #### 19631-2, 50335-0, QMT2232, 45477-4 ####[facility] LABCLIA [id number] [place] [address] [place] OF AMERICAUS DVT LOWER BILon 53-68-0855NY DVT LOWER BILNormalCUniversity Hospitals Cleveland Medical CenterXR CHEST 2V FRONTAL/LATon 44-98-3047JJ CHEST 2V FRONTAL/LAT NormalPromedica Fostoria Community HospitalBasic metabolic 2000 panelon 57-50-1871Nobwk gap [Moles/Vol]13 mmol/LNormal8-15[facility]ostoria Community HospitalComment on above:Order Comment: Specimen Type: BLOOD SPECIMENOrdering Facility: [facility] Address:[address] [place], [place] [address]Performed By: #### 05706- 9, 59341-2 ####[facility] LABCLIA [id number] [place], [place] [address]Fnsrohx [Mass/Vol]9.0 mg/dLNormal8.5-10.2[facility] on above:Order Comment: Specimen Type: BLOOD SPECIMENOrdering Facility: [facility] Address:[address] [place], [place] [address]Performed By: #### 02602-3, 62235-3 ####[facility] LABCLIA [id number] [place], [place] [address]Uucgyluz [Moles/Vol]100 mmol/CKptfvh15-407DysyydiclMartin Memorial Hospital on above: Order Comment: Specimen Type: BLOOD SPECIMENOrdering Facility: [facility] Address:[address] [place], [place] [address]Performed By: #### 23266- 9, 96361-3 ####[facility] LABCLIA [id number] [place], [place] [address]RX7 [Moles/Vol]25 mmol/RAjudbb67-20AqtlhzfdvMartin Memorial Hospital on above:Order Comment: Specimen Type: BLOOD SPECIMENOrdering Facility: [facility] Address:[address] [place], [place] [address]Performed By: #### 27590-0, 94958-0 ####[facility] LABCLIA [id number] [place], [place] [address]Gkdhlttqea [Mass/Vol] 1.08 mg/dLNormal0.73-1.22[facility] on above:Order Comment: Specimen Type: BLOOD SPECIMENOrdering Facility: [facility] Address:[address] [place], [place] [address]Performed By: #### 39106- 9, 70788-8 ####[facility] LABCLIA [id number] [place], [place] [address]Anrlofzzqn and Glomerular filtration rate.predicted panel (S/P/Bld)72 mL/min/1.73m???Normal>=60[facility] on above:Order Comment: Specimen Type: BLOOD SPECIMENOrdering Facility: [facility] Address:[address] [place], [place] [address]Result Comment: Estimated Glomerular Filtration Rate (eGFR) is [...] not accurately reflect actual GFR.Performed By: #### 58673-7, 98077-6 ####[facility] LABCLIA [id number] [place], [place] [address]Lmzknec [Mass/Vol]140 mg/pRAvan68-90ElhvwqoibMartin Memorial Hospital on above:Order Comment: Specimen Type: BLOOD SPECIMENOrdering Facility: [facility] Address:[address] [place], [place] [address]Result Comment: The English Diabetes Association (ADA) provides guidance for cutoff [...] Standards of Medical Care in Diabetes 2016, English Diabetes Association. Diabetes Care. 2016.39(Suppl 1).Performed By: #### 43577- 9, 11666-4 ####[facility] LABCLIA [id number] [place], [place] [address]Zupodmnse [Moles/Vol]4.0 mmol/LNormal3.7-5.1 [facility] on above:Order Comment: Specimen Type: BLOOD SPECIMENOrdering Facility: [facility] Address:[address] [place], [place] [address]Performed By: #### 62266-0, 09584-0 ####[facility] LABCLIA [id number] [place], [place] [address]Xgthvw [Moles/Vol]138 mmol/JCvmpwp248-133OwsanheeyMartin Memorial Hospital on above: Order Comment: Specimen Type: BLOOD SPECIMENOrdering Facility: [facility] Address:[address] [place], [place] [address]Performed By: #### 90858- 9, 89921-2 ####[facility] LABCLIA [id number] [place], [place] [address]Zthx nitrogen [Mass/Vol]39 mg/dLHigh9-24[facility] on above:Order Comment: Specimen Type: BLOOD SPECIMENOrdering Facility: [facility] Address:[address] [place], [place] [address]Performed By: #### 94046-6, 66557-6 ####[facility] LABCLIA [id number] [place], [place] [address]JWR panel Auto (Bld)on 48-82-7208Necxrjdgeuc distribution width (RBC) [Ratio]16.2 % High11.5-15.0[facility] on above:Order Comment: Specimen Type: BLOOD SPECIMENOrdering Facility: [facility] Address:[address] [place], [place] [address]Performed By: #### 15746-0 ####[facility] LABCLIA [id number] [place] [address] Hematocrit (Bld) [Volume fraction]38.3 %Low39.0-51.0[facility] Comment on above:Order Comment: Specimen Type: BLOOD SPECIMENOrdering Facility: [facility] Address:[address] [place], [place] [address] Performed By: #### 50621-6 ####[facility] LABCLIA [id number] [place], [place] [address]Xioqheusrr (Bld) [Mass/Vol]12.4 g/dLLow13.0-17.0[facility] on above:Order Comment: Specimen Type: BLOOD SPECIMENOrdering Facility: [facility] Address:[address] [place], [place] [address]Performed By: #### 56904-7 ####[facility] LABCLIA [id number] [place], [place] [address]XMN (RBC) [Entitic mass]31.9 hsBmczdw20.0-34.0[facility] on above:Order Comment: Specimen Type: BLOOD SPECIMENOrdering Facility: [facility] Address:[address] [place], [place] [address]Performed By: #### 49465-1 ####[facility] LABCLIA [id number] [place], [place] [address]CKOZ (RBC) [Mass/Vol]32.4 g/qXNurriq65.5-36.0[facility] on above: Order Comment: Specimen Type: BLOOD SPECIMENOrdering Facility: [facility] Address:[address] [place], [place] [address]Performed By: #### 53422- 2 ####[facility] LABCLIA [id number] [place], [place] [address]DQS (RBC) [Entitic vol]98.5 fRKtdwnf60.0-100.0[facility] on above:Order Comment: Specimen Type: BLOOD SPECIMENOrdering Facility: [facility] Address:[address] [place], [place] [address]Performed By: #### 46360-1 ####[facility] LABIA [id number] [place], [place] [address]Lcdyogtcc RBC (Bld) [#/Vol]10*3/uLNormal<0.01[facility] on above:Order Comment: Specimen Type: BLOOD SPECIMENOrdering Facility: [facility] Address:[address] [place], [place] [address]Performed By: #### 59802- 2 ####[facility] LABCLIA [id number] [place], [place] [address]Ensrvioo mean volume (Bld) [Entitic vol]9.8 fLNormal 9.0-12.7[facility] on above:Order Comment: Specimen Type: BLOOD SPECIMENOrdering Facility: [facility] Address:[address] [place], [place] [address]Performed By: #### 80163-2 ####[facility] LABCLIA [id number] [place], [place] [address]Sypmqbfhk (Bld) [#/Vol]150 10*3/oZMkwkcg065-156FtejzmbibMartin Memorial Hospital on above: Order Comment: Specimen Type: BLOOD SPECIMENOrdering Facility: [facility] Address:[address] [place], [place] [address]Performed By: #### 74908- 2 ####[facility] LABCLIA [id number] [place], [place] [address]BXK (Bld) [#/Vol]3.89 10*6/uLLow4.20-6.00[facility] on above:Order Comment: Specimen Type: BLOOD SPECIMENOrdering Facility: [facility] Address:[address] [place], [place] [address]Performed By: #### 39428-1 ####[facility] LABCLIA [id number] [place], [place] [address]ISS (Bld) [#/Vol]8.65 10*3/uL Normal3.70-11.00[facility] on above:Order Comment: Specimen Type: BLOOD SPECIMENOrdering Facility: [facility] Address:[address] [place], [place] [address]Grvlyksgv By: #### 56763-3 ####[facility] HOSPITALIA [id number] [place], [place] [address]Pfxkpalnd SerPl-mCncon 74-92-2210Jsdamoiyy [Mass/Vol]2.4 mg/dLHigh1.7-2.3CUniversity Hospitals Cleveland Medical CenterComment on above:Order Comment: Specimen Type: BLOOD SPECIMENOrdering Facility: [facility] Address:[address] [place], [place] [address]Iddkvrbhv By: #### 34454-1, 79772-2 ####[facility] LABIA [id number] [place], [place] [address]RGBOvm 34-49-6863KCBPHqczhruwi (AVXRCT) SAV RAYMUNDO ([id number]) 1950 M Date Time Provider Department 11/04/24 [facility] During your visit today, we recorded the following information about you: Dragan Lopez, [place] 11/04/2024 3:03 PM Signed This pt [...] action needed at this time. Xiomara Ly APRN.SEO SPECIALIST Allergies As of Date: 11/04/2024 Noted Allergy [...] tablet by mouth once daily. - calcium ooy-nse-D6-Zn-copy chief-kian 250 mg-40 mg- 125 unit-3.75mg tab Take [...] 10/15/2024 Encounter Status:Closed by DRAGAN LOPEZ on 11/04/24[facility] ENTEROGRAPHY W IVCONon 04-17-1565BL ENTEROGRAPHY W IVCON* * *Final Report* * * DATE OF EXAM: Nov 04 2024 3:04PM [facility] 0545 - CT ENTEROGRAPHY W IVCON [...] WITH RIGHT PLEURAL CATHETER. SMALL HIATAL HERNIA. Manager Clinical Services: ALONSO Transcribe Date/Time: Nov 04 2024 3:57P Dictated by : IZABELA LAMBERT MD This examination was interpreted and the report reviewed and electronically signed by: IZABELA LAMBERT MD on Nov 04 2024 5:14PM EST [id number] Borgess Lee HospitalNURSATHOL [facility] PROGon 87-42-1869WOUAWBP PROG HNO ID: [id number] Author: COLBY VAZQUEZ RN Service: Radiology Author [...] Raymundo DATE: November 04, 2024 TIME: 1:45 [facility] ID: [id number] Author: COLBY VAZQUEZ RN Service: Radiology Author [...] REFERRAL (RECOMMENDATION): None Electronically Signed By: Colby VazquezCardinal Hill Rehabilitation Center, FECAL QUALon 06-32-8994GNN, FECAL - NEUTRALNormalNormalNormalC[facility] on above:Order Comment: Specimen Type: STOOL SPECIMENOrdering Facility: [facility] Address:[address] [place] [address]Ofyrtuhgt By: #### FFATQL ####[facility]IES[facility] [id number] [place], [place] [address]ITQ, FECAL - SPLITNormalNormalNormalCleveland Clinic ClevelandComment on above:Order Comment: Specimen Type: STOOL SPECIMENOrdering Facility: [facility] Address:[address] [place], [place] [address]Result Comment: INTERPRETIVE INFORMATION: Fecal Fat QualitativeNeutral fats include the monoglycerides, diglycerides, andtriglycerides while split fats are the free fatty acidsthat are liberated fromthem. Impaired synthesis orsecretion of pancreatic enzymes or bile may cause anincrease in neutral fats while an increase in split fatssuggests impaired absorption of nutrients.Performed By: [address] [place] [address]Rkaegwocmk Director: Anne-Marie Correa MD, PhDCLIANumber: [id number] By: #### FFATQL ####[facility] SOUTHIA [id number] [place] [address] Amylase SerPl-cCncon 74-62-7139Wixftfo [Catalytic activity/Vol]70 U/LNormal 30-104Avon HospitalComment on above:Order Comment: Specimen Type: BLOOD SPECIMEN [facility] Address: [address] [place], [place] [address]Performed By: #### [id number], [id number] #### [facility] CLIA [id number] [address] [place] [address] [place] AMERICACNPNon 19-13-8493QBJZTllftk [facility] Community HospitalIGG SUBCLASS 1,2,3,4on 45-17-6600IgS subclass 1 (S) [Mass/Vol]576.5 mg/sVBigweb329.4-928.6Avon HospitalComment on above:Order Comment: Specimen Type: BLOOD SPECIMEN [facility] Address: [address] [place], [place] [address]Performed By: #### [id number] #### [facility] CLIA [id number] [address] [place] [address] [place] AMERICAIgG subclass 2 (S) [Mass/Vol]251.2 mg/lJHkhlpi197.8-700.3Avon HospitalComment on above:Order Comment: Specimen Type: BLOOD SPECIMEN [facility] Address: [address] [place], [place] [address]Performed By: #### [id number] #### [facility] CLIA [id number] [address] [place] [address] [place] AMERICAIgG subclass 3 (S) [Mass/Vol]50.4 mg/qPKkpanq12.8-176.1Avon HospitalComment on above:Order Comment: Specimen Type: BLOOD SPECIMEN [facility] Address: [address] [place], [place] [address]Performed By: #### [id number] #### [facility] CLIA [id number] [address] [place] [address] [place] AMERICAIgG subclass 4 (S) [Mass/Vol]64.4 mg/dLNormal3.9-86.4Avon HospitalComment on above:Order Comment: Specimen Type: BLOOD SPECIMEN [facility] Address: [address] [place], [place] [address]Performed By: #### [id number] #### [facility] CLIA [id number] [address] [place] [address] [place] AMERICAIgG SerPl-mCncon 10-23-2024 IgG [Mass/Vol]1100 mg/aPSjfhsv191-7338Cgww HospitalComment on above:Order Comment: Specimen Type: BLOOD SPECIMEN [facility] Address: [address] [place], [place] [address]Performed By: #### 2465-3 #### [facility] CLIA [id number] [address] [place] [address] [place] AMERICALipase SerPl-cCncon 76-70-4659Fgcqif [Catalytic activity/Vol]55 U/CYhoull68-57Kkjj HospitalComment on above:Order Comment: Specimen Type: BLOOD SPECIMEN [facility] Address: [address] [place], [place] [address]Performed By: #### [id number], [id number] #### [facility] CLIA [id number] [address] [place] [address] OF [facility] WEST CAMPUSUS ABD RIGHT UPPER QUADRANT on 97-53-8611VX ABD RIGHT UPPER QUADRANT* * *Final Report* * * DATE OF EXAM: Oct 23 2024 2:18PM [facility] - [place] ABD RIGHT UPPER [...] 2. Small volume abdominal ascites. No splenomegaly. Manager Clinical Services: [facility] Transcribe Date/Time: Oct 26 2024 2:30P Dictated by : SANDRA BELTRE MD This examination was interpreted and the report reviewed and electronically signed by: SANDRA BELTRE MD on Oct 26 2024 2:34PM EST [id number] Point Medical Center ABD SPLEEN -NBon 58-75-7078BO ABD SPLEEN -NB* * *Final Report* * * DATE OF EXAM: Oct 23 2024 2:18PM [facility] - [place] ABD SPLEEN -NB [...] 2. Small volume abdominal ascites. No splenomegaly. Manager Clinical Services: ALONSO Transcribe Date/Time: Oct 26 2024 2:30P Dictated by : SANDRA BELTRE MD This examination was interpreted and the report reviewed and electronically signed by: SANDRA BELTRE MD on Oct 26 2024 2:34PM EST [id number] [facility] Chest limitedon 02-41-4009Iidslsevn ClinicALKALINE PHOSPHATASE ISOENZYMES (P)on 82-01-6119JCI PHOS BONE %18.1 % Yaihhd28.7-68.3ClevelTrinity Health System West Campus on above:Order Comment: Specimen Type: BLOOD SPECIMENOrdering Facility: [facility] Address:[address] [place], [place] [address]Performed By: #### ALKISOP ####[facility] LABIA [id number] [address] STATES OF AMERICAALK PHOS LIVER %81.9 %Normal 26.0-86.2ClevelTrinity Health System West Campus on above:Order Comment: Specimen Type: BLOOD SPECIMENOrdering Facility: [facility] Address:[address] [place], [place] [address]Performed By: #### ALKISOP ####[facility] LABIA [id number] [place] [address] [place] AMERICABONE LBIZGNRG52.6 U/EVwyfob98.9-52.6ClevelTrinity Health System West Campus on above:Order Comment: Specimen Type: BLOOD SPECIMENOrdering Facility: [facility] Address:[address] [place], [place] [address]Performed By: #### ALKISOP ####[facility] LABCLIA [id number] [place] [id number] [place] INTESTINE FRACTION0.0 U/LNormal0.0-16.3[facility] on above:Order Comment: Specimen Type: BLOOD SPECIMENOrdering Facility: [facility] Address:[address] [place], [place] [address]Performed By: #### ALKISOP ####[facility] LABCLIA [id number] [address] OF AMERICALIVER IMFXWRAX605.4 U/LHigh16.0-69.3[facility] on above:Order Comment: Specimen Type: BLOOD SPECIMENOrdering Facility: [facility] Address:[address] [place], [place] [address]Performed By: #### ALKISOP ####[facility] LABCLIA [id number] [address] STATES [place] AMERICANeutrophils/100 WBC (Bld)0.0 % Normal0.0-24.2[facility] on above:Order Comment: Specimen Type: BLOOD SPECIMENOrdering Facility: [facility] Address:[address] [place], [place] [address]Performed By: #### ALKISOP ####[facility] LABCLIA [id number] [place] [id number] [place] [facility] CAMPUSALP SerPl-cCncon [id number] [Catalytic activity/Vol] 125 U/VYtqk06-347VgelhddbyMartin Memorial Hospital on above:Order Comment: Specimen Type: BLOOD SPECIMENOrdering Facility: [facility] Address:[address] [address] [place], [place] [address]Performed By: #### 6768-6, 90645-1, 63308-4 ####[facility] LABCLIA [id number] [address] Auto Differential panel (Bld)on 17-90-6826Mymrzfttj (Bld) [#/Vol]NINFCleveland ClinicBasophils/100 WBC (Bld)0.1 %[facility] CenterDifferential cell count method Nom (Bld)AutoCleveland ClinicEosinophils (Bld) [#/Vol]NINFCleveland ClinicEosinophils/100 WBC (Bld)0 % [facility] CenterErythrocyte distribution width (RBC) [Ratio]15.5 %High11.5 - 15.0 %[facility] Medical CenterHematocrit (Bld) [Volume fraction]40.7 %39.0 - 51.0 % [facility] CenterHemoglobin (Bld) [Mass/Vol]12.9 g/dLLow13.0 - 17.0 g/dLTrinity Health System Twin City Medical CenterImmature granulocytes (Bld) [#/Vol]0.09 10*3/uLNIMcKitrick Hospital Immature granulocytes/100 WBC (Bld)0.8 %[facility] CenterInterpretation and review of laboratory resultsAbnormalClevelKettering Health Greene MemorialLymphocytes (Bld) [#/Vol]0.8 10*3/uLLowTrinity Health System Twin City Medical CenterLymphocytes/100 WBC (Bld)7.2 %[facility] DaytonH (RBC) [Entitic mass]31.2 pg26.0 - 34.0 pgClevelRidgeview Le Sueur Medical CenterHC (RBC) [Mass/Vol] 31.7 g/dL30.5 - 36.0 g/dLKettering Health DaytonV (RBC) [Entitic vol]98.5 fL80.0 - 100.0 fLCleveland Westbrook Medical CenterMonocytes (Bld) [#/Vol]0.81 10*3/uLNINFTrinity Health System [facility] Monocytes/100 WBC (Bld)7.3 %[facility] Medical CenterNeutrophils (Bld) [#/Vol]9.45 10*3/uLHighTrinity Health System Twin City Medical CenterNeutrophils/100 WBC (Bld)84.6 %[facility] Nucleated RBC (Bld) [#/Vol]NINFCleveland ClinicNucleated RBC/100 WBC (Bld) [Ratio]0 %/100 WBCTrinity Health System Twin City Medical CenterPlatelet mean volume (Bld) [Entitic vol]10.5 fL9.0 - 12.7 fLCleveland ClinicPlatelets (Bld) [#/Vol]202 10*3/uLSalt Lake City ClinicRBC (Bld) [#/Vol]4.13 10*6/uLLow4.20 - 6.00 m/uLTrinity Health System Twin City Medical CenterWBC (Bld) [#/Vol]11.16 10*3/uLHighTrinity Health System Twin City Medical CenterCleohiohealth shelby hospital ClinicBasophils (Bld) [#/Vol] 10*3/uLNormal<0.11[facility] on above:Order Comment: Specimen Type: BLOOD SPECIMENOrdering Facility: [facility] Address:[address] [place], [place] [address]Performed By: #### 86465-5, 4537-7 ####[facility] LABCLIA [id number] [place] [address] [place] AMERICABasophils/100 WBC (Bld)0.1 % NormalMartin Memorial Hospital on above:Order Comment: Specimen Type: BLOOD SPECIMENOrdering Facility: [facility] Address:[address] [place], [place] [address]Performed By: #### 18842-7, 4536-7 ####[facility] LABCLIA [id number] [place] [address] [place] AMERICADifferential cell count method Nom (Bld)AutoNormal [facility] on above:Order Comment: Specimen Type: BLOOD SPECIMENOrdering Facility: [facility] Address:[address] [place], [place] [address]Performed By: #### 26993-8, 4536-7 ####[facility] LABCLIA [id number] [place] [address] [place] AMERICAEosinophils (Bld) [#/Vol]10*3/uLNormal<0.46[facility] on above:Order Comment: Specimen Type: BLOOD SPECIMENOrdering Facility: [facility] Address:[address] [place], [place] [address]Performed By: #### 49058-1, 7 ####[facility] LABIA [id number] [address] STATES [facility]MOGEN[facility] BASSETT HOSPITALEosinophils/100 WBC (Bld)0.0 %NormalMartin Memorial Hospital on above:Order Comment: Specimen Type: BLOOD SPECIMENOrdering Facility: [facility] Address:[address] [place], [place] [address]Performed By: #### 14683-3, 7 ####[facility] LABIA [id number] [address], [place] [address] [place] OF AMERICAErythrocyte distribution width (RBC) [Ratio]15.5 %High11.5-15.0[facility] Comment on above:Order Comment: Specimen Type: BLOOD SPECIMENOrdering Facility: [facility] Address:[address] [place] [address] Performed By: #### 14284-3, 7 ####[facility] LABIA [id number] [place] [address] [place] Hematocrit (Bld) [Volume fraction]40.7 %Qkeozb46.0-51.0[facility] on above:Order Comment: Specimen Type: BLOOD SPECIMENOrdering Facility: [facility] Address:[address] [place], [place] [address]Performed By: #### 51038-6, 4536-7 ####[facility] LABIA [id number] [place] [address] [place] Hemoglobin (Bld) [Mass/Vol]12.9 g/dLLow13.0-17.0[facility] Comment on above:Order Comment: Specimen Type: BLOOD SPECIMENOrdering Facility: [facility] Address:[address] [place] [address] Performed By: #### 29353-5, 4536-7 ####[facility] LABCLIA [id number] [place] [address] [place] Immature granulocytes (Bld) [#/Vol]0.09 10*3/uLNormal<0.10[facility] HospitalComment on above:Order Comment: Specimen Type: BLOOD SPECIMENOrdering Facility: [facility] Address:[address] [place], [place] [address]Performed By: #### 12904-0, 4536-7 ####[facility] LABCLIA [id number] [place] [address] [place] AMERICAImmature granulocytes/100 WBC (Bld)0.8 %NormalPromedica Fostoria Community Hospital Comment on above:Order Comment: Specimen Type: BLOOD SPECIMENOrdering Facility: [facility] Address:[address] [place] [address] Performed By: #### 01409-2, 7 ####[facility] LABCLIA [id number] [place] [address] [place] Lymphocytes (Bld) [#/Vol]0.80 10*3/uLLow1.00-4.00[facility] Comment on above:Order Comment: Specimen Type: BLOOD SPECIMENOrdering Facility: [facility] Address:[address] [place] [address] Performed By: #### 00910-2, 7 ####[facility] LABCLIA [id number] [place] [address] [place] Lymphocytes/100 WBC (Bld)7.2 %NormalPromedica Fostoria Community HospitalComment on above: Order Comment: Specimen Type: BLOOD SPECIMENOrdering Facility: [facility] Address:[address] [place], [place] [address]Performed By: #### 04310- 8, 4536-7 ####[facility] LABCLIA [id number] [address] (RBC) [Entitic mass] 31.2 rnHptbuh37.0-34.0[facility] on above:Order Comment: Specimen Type: BLOOD SPECIMENOrdering Facility: [facility] Address:[address] [place], [place] [address]Performed By: #### 68478-1, 4536-7 ####[facility] LABCLIA [id number] [address] (RBC) [Mass/Vol]31.7 g/dL Npmpxk06.5-36.0[facility] on above:Order Comment: Specimen Type: BLOOD SPECIMENOrdering Facility: [facility] Address:[address] [place], [place] [address]Performed By: #### 59358-2, 7 ####[facility] LABCLIA [id number] [address] (RBC) [Entitic vol]98.5 fL Wrmwit44.0-100.0[facility] on above:Order Comment: Specimen Type: BLOOD SPECIMENOrdering Facility: [facility] Address:[address] [place], [place] [address]Performed By: #### 98587-4, 7 ####[facility] LABIA [id number] [address]Monocytes (Bld) [#/Vol]0.81 10*3/uLNormal<0.87[facility] on above:Order Comment: Specimen Type: BLOOD SPECIMENOrdering Facility: [facility] Address:[address] [place], [place] [address]Performed By: #### 96509-9, 7 ####[facility] LABCLIA [id number] [address]Monocytes/100 WBC (Bld)7.3 % NormalPromedica Fostoria Community HospitalComment on above:Order Comment: Specimen Type: BLOOD SPECIMENOrdering Facility: [facility] Address:[address] [place], [place] [address]Performed By: #### 55401-7, 4536-7 ####[facility] LABCLIA [id number] [place] [address] [place] AMERICANeutrophils (Bld) [#/Vol]9.45 10*3/uLHigh1.45-7.50 [facility] on above:Order Comment: Specimen Type: BLOOD SPECIMENOrdering Facility: [facility] Address:[address] [place], [place] [address]Performed By: #### 23048-0, 7 ####[facility] LABCLIA [id number] [place] [address] [place] AMERICANeutrophils/100 WBC (Bld)84.6 %NormalPromedica Fostoria Community Hospital Comment on above:Order Comment: Specimen Type: BLOOD SPECIMENOrdering Facility: [facility] Address:[address] [place] [address] Performed By: #### 64081-9, 7 ####[facility] LABCLIA [id number] [place] [address] [place] Nucleated RBC (Bld) [#/Vol]10*3/uLNormal<0.01[facility] on above:Order Comment: Specimen Type: BLOOD SPECIMENOrdering Facility: [facility] Address:[address] [place] [address] Performed By: #### 46835-2, 7 ####[facility] LABCLIA [id number] [place] [address] [place] Nucleated RBC/100 WBC (Bld) [Ratio]0.0 /100 WBCNormalCUniversity Hospitals [facility] Comment on above:Order Comment: Specimen Type: BLOOD SPECIMENOrdering Facility: [facility] Address:[address] [place] [address] Performed By: #### 05645-7, 4537-7 ####[facility] LABCLIA [id number] [place] [address] [place] Platelet mean volume (Bld) [Entitic vol]10.5 fLNormal9.0-12.7[facility] on above:Order Comment: Specimen Type: BLOOD SPECIMENOrdering Facility: [facility] Address:[address] [place], [place] [address]Performed By: #### 88980-5, 4537-7 ####[facility] LABCLIA [id number] [place] [address] [place] Platelets (Bld) [#/Vol]202 10*3/iIXeewdp224-186OfkwopqstMartin Memorial Hospital on above:Order Comment: Specimen Type: BLOOD SPECIMENOrdering Facility: [facility] Address:[address] [place] [address] Performed By: #### 40889-7, 4537-7 ####[facility] LABIA [id number] [place] [address] [place] RBC (Bld) [#/Vol]4.13 10*6/uLLow4.20-6.00[facility] on above:Order Comment: Specimen Type: BLOOD SPECIMENOrdering Facility: [facility] Address:[address] [place], [place] [address]Performed By: #### 36575-6, 4537-7 ####[facility] LABIA [id number] [place] [address] [place] AMERICAWBC (Bld) [#/Vol]11.16 10*3/uLHigh3.70-11.00[facility] on above:Order Comment: Specimen Type: BLOOD SPECIMENOrdering Facility: [facility] Address:[address] [place], [place] [address]Performed By: #### 18878-3, 4537-7 ####[facility] LABIA [id number] [place] [address] [place] AMERICACNOVon 35-55-1391WYMPEfgdwo [facility] ClevelandCNPTOUTREACHon 02-79-9892JPNOWIRPMZDSHlahcoDlvwjmdeb Clinic ClevelandCRP SerPl HS-mCncon 72-23-5104SVA High sensitivity method [Mass/Vol]13.2 mg/LHigh<3.1ClevelFirstHealth Moore Regional HospitalComment on above:Order Comment: Specimen Type: BLOOD SPECIMENOrdering Facility: [facility] Address:[address] [place], [place] [address]Result Comment: hsCRP < 1.0 mg/L, relative risk is lowhsCRP 1.0-3.0 mg/L, relative risk is averagehsCRP > 3.0 mg/L, relative risk is highReference:Roman TA, Wilma GA, Octavio RW, et al. Markers of Inflammation and Cardiovascular Disease. Application to Clinical and Public Health Practice. A Statement for Healthcare Professionals from the Centers for Disease Control and Prevention and the English Heart Association. Circulation 2003;107:499-511.Performed By: #### 6768-6, 97607-4, 34453-8 ####[facility] LABIA [id number] [address] [place] AMERICAComprehensive metabolic 2000 panelon 37-31-3225Wnqpfau [Mass/Vol]4.2 g/dL3.9 - 4.9 g/dLCleohiohealth shelby hospital ClinicALP [Catalytic activity/Vol]125 U/LHigh38 - 113 U/LCleveland ClinicALT [Catalytic activity/Vol]41 U/L10 - 54 U/LCleveland ClinicAnion gap [Moles/Vol]14 mmol/L8 - 15 mmol/LCleveland ClinicAST [Catalytic activity/Vol]53 U/LHigh14 - 40 U/L [facility] ClinicBilirubin [Mass/Vol]0.6 mg/dL0.2 - 1.3 mg/dLCleveland Clinic Calcium [Mass/Vol]9.7 mg/dL8.5 - 10.2 mg/dLTrinity Health System [facility] City Medical CenterChloride [Moles/Vol] 101 mmol/L98 - 107 mmol/LCleveland ClinicCO2 [Moles/Vol]27 mmol/L22 - 30 mmol/L [facility] CenterCreatinine [Mass/Vol]1.09 mg/dL0.73 - 1.22 mg/dLTr[facility] Health [facility] GFR/1.73 sq M.predicted among non-blacks MDRD (S/P/Bld) [Vol rate/Area]72 mL/min/{1.73_m2}- PINFCDiley Ridge Medical CenterComment on above:Estimated Glomerular Filtration Rate (eGFR) is calculated using the 2020 CKD-EPI creatinine equation. This equation utilizes serum creatinine, sex, and age as parameters. The creatinine assay has traceable calibration to isotope dilution-mass spectrometry. Refer to KDIGO guidelines for clinical interpretation. In patients with unstable renal function, e.g. those with acute kidney injury, the eGFRmay not accurately reflect actual GFR.Glucose [Mass/Vol]116 mg/wKTbyy21 - 99 mg/dL [facility] Medical CenterComment on above:The English Diabetes Association (ADA) provides guidance for cutoff [...] Standards of Medical Care in Diabetes 2016, English Diabetes Association. Diabetes Care. 2016.39(Suppl 1). Potassium [Moles/Vol]4.1 mmol/L3.7 - 5.1 mmol/LCleveland ClinicProtein [Mass/Vol]7.6 g/dL6.3 - 8.0 g/dLSalt Lake City ClinicSodium [Moles/Vol]142 mmol/L136 - 144 mmol/LCleveland ClinicUrea nitrogen [Mass/Vol]35 mg/dLHigh9 - 24 mg/dL Summa Healthbumin [Mass/Vol]4.2 g/dLNormal3.9-4.9[facility] on above:Order Comment: Specimen Type: BLOOD SPECIMENOrdering Facility: [facility] Address:[address] [place], [place] [address]Performed By: #### 6768-6, 89804-2, 37096-6 ####[facility] LABCLIA [id number] [place] [id number] [place] AMERICAALT [Catalytic activity/Vol]41 U/XLvewxs66-29VkdikghlfMartin Memorial Hospital on above:Order Comment: Specimen Type: BLOOD SPECIMENOrdering Facility: [facility] Address:[address] [place], [place] [address]Performed By: #### 6768-6, 42822-0, 83719-1 ####[facility] LABCLIA [id number] VIL[place] [address] [place] AMERICAAnion gap [Moles/Vol]14 mmol/LNormal8-15[facility] on above:Order Comment: Specimen Type: BLOOD SPECIMENOrdering Facility: [facility] Address:[address] [place], [place] [address]Performed By: #### 6768-6, 73056-8, 86502-4 ####[facility] LABCLIA [id number] [place] [address] [place] AMERICAAST [Catalytic activity/Vol]53 U/TKniw36-06FycrgtjoqMartin Memorial Hospital on above:Order Comment: Specimen Type: BLOOD SPECIMENOrdering Facility: [facility] Address:[address] [place], [place] [address]Performed By: #### 6768-6, 58135-4, 27001-8 ####[facility] LABCLIA [id number] [address] [address] [place] AMERICABilirubin [Mass/Vol]0.6 mg/dLNormal0.2-1.3[facility] on above:Order Comment: Specimen Type: BLOOD SPECIMENOrdering Facility: [facility] Address:[address] [place], [place] [address]Performed By: #### 6768-6, 29006-7, 45824-3 ####[facility] LABCLIA [id number] [place] [address] [place] AMERICACalcium [Mass/Vol]9.7 mg/dLNormal8.5-10.2[facility] on above:Order Comment: Specimen Type: BLOOD SPECIMENOrdering Facility: [facility] Address:[address] [place], [place] [address]Performed By: #### 6768-6, 79885-9, ####[facility] LABCLIA [id number] [address] [place] AMERICAChloride [Moles/Vol]101 mmol/NRjywzk02-914DulrkssxiMartin [facility] Hospital on above:Order Comment: Specimen Type: BLOOD SPECIMENOrdering Facility: [facility] Address:[address] [place], [place] [address]Performed By: #### 6768-6, 42240-3, ####[facility] LABCLIA [id number] VIL[place] [address] [place] AMERICACO2 [Moles/Vol]27 mmol/OFidzyo92-99XsxwqjqcsPromedica Fostoria Community Hospital Comment on above:Order Comment: Specimen Type: BLOOD SPECIMENOrdering Facility: [facility] Address:[address] [place], [place] [address] Performed By: #### 6768-6, 95536-3, 08248-9 ####[facility] LABCLIA [id number] [place] [address] [place] AMERICACreatinine [Mass/Vol]1.09 mg/dLNormal0.73-1.22[facility] Comment on above:Order Comment: Specimen Type: BLOOD SPECIMENOrdering Facility: [facility] Address:[address] [place] [address] Performed By: #### 6768-6, 64315-0, 29036-4 ####[facility] LABIA [id number] [address] [place] AMERICACreatinine and Glomerular filtration rate.predicted panel (S/P/Bld)72 mL/min/1.73m???Normal>=60[facility] on above:Order Comment: Specimen Type: BLOOD SPECIMENOrdering Facility: [facility] Address:[address] [place], [place] [address]Result Comment: Estimated Glomerular Filtration Rate (eGFR) is [...] accurately reflect actual GFR.Performed By: #### 6768-6, 70646-0, 99152-8 ####[facility] LABIA [id number] [address] [place] AMERICAGlucose [Mass/Vol]116 mg/dLHigh 74-99[facility] on above:Order Comment: Specimen Type: BLOOD SPECIMENOrdering Facility: [facility] Address:[address] [place] [address]Cfzdni Comment: The English Diabetes Association (ADA) provides guidance for cutoff [...] Standards of Medical Care in Diabetes 2016, English Diabetes Association. Diabetes Care. 2016.39(Suppl 1).Performed By: #### 6768-6, 10362-6, 18269-1 ####[facility] LABCLIA [id number] [address] [place] AMERICAPotassium [Moles/Vol] 4.1 mmol/LNormal3.7-5.1[facility] on above:Order Comment: Specimen Type: BLOOD SPECIMENOrdering Facility: [facility] Address:[address] [place], [place] [address]Performed By: #### 6768-6, 90280-3, 53280-8 ####[facility] LABIA [id number] [address] [place] AMERICAProtein [Mass/Vol]7.6 g/dLNormal 6.3-8.0[facility] on above:Order Comment: Specimen Type: BLOOD SPECIMENOrdering Facility: [facility] Address:[address] [place], [place] [address]Performed By: #### 6768-6, 10733-6, 90014-2 ####[facility] LABIA [id number] VILLE [address] [place] AMERICASodium [Moles/Vol]142 mmol/L Xjzigp146-828XtcvrmsvjMartin Memorial Hospital on above:Order Comment: Specimen Type: BLOOD SPECIMENOrdering Facility: [facility] Address:[address] [place], [place] [address]Performed By: #### 6768-6, 94495-0, 21319-9 ####[facility] LABIA [id number] VILLE [address] [place] AMERICAUrea nitrogen [Mass/Vol]35 mg/dL High9-24[facility] on above:Order Comment: Specimen Type: BLOOD SPECIMENOrdering Facility: [facility] Address:[address] [place], [place] [address]Performed By: #### 6768-6, 93815-0, 25094-3 ####[facility] LABCLIA [id number] [place] [address] [place] AMERICAAlbumin [Mass/Vol]4.2 g/dL3.9 - 4.9 g/dLSalt Lake City ClinicALP [Catalytic activity/Vol]124 U/LHigh38 - 113 U/L [facility] ClinicALT [Catalytic activity/Vol]40 U/L10 - 54 U/LCleveland Clinic Anion gap [Moles/Vol]13 mmol/L8 - 15 mmol/LCleveland ClinicAST [Catalytic activity/Vol]49 U/LHigh14 - 40 U/LCleveland ClinicBilirubin [Mass/Vol]0.7 mg/dL 0.2 - 1.3 mg/dLSalt Lake City ClinicCalcium [Mass/Vol]9.3 mg/dL8.5 - 10.2 mg/dL [place] [facility] ClinicChloride [Moles/Vol]100 mmol/L98 - 107 mmol/LCleveland ClinicCO2 [Moles/Vol]28 mmol/L22 - 30 mmol/LCleveland ClinicCreatinine [Mass/Vol]1.13 mg/dL0.73 - 1.22 mg/dLSalt Lake City ClinicGFR/1.73 sq M.predicted among non-blacks MDRD (S/P/Bld) [Vol rate/Area]69 mL/min/{1.73_m2}- PINCleveland Clinic Lutheran HospitalComment on above:Estimated Glomerular Filtration Rate (eGFR) [...] not accurately reflect actual GFR.Glucose [Mass/Vol] 104 mg/kVAzkx08 - 99 mg/dLTrinity Health System Twin City Medical CenterComment on above:The English Diabetes Association (ADA) provides guidance for cutoff [...] Standards of Medical Care in Diabetes 2016, English Diabetes Association. Diabetes Care. 2016.39(Suppl 1). Potassium [Moles/Vol]3.8 mmol/L3.7 - 5.1 mmol/LCleveland ClinicProtein [Mass/Vol]7.5 g/dL6.3 - 8.0 g/dLGreen Cross Hospitalodium [Moles/Vol]141 mmol/L136 - 144 mmol/LCleveland ClinicUrea nitrogen [Mass/Vol]33 mg/dLHigh9 - 24 mg/dL [facility] Westergren method (Bld) [Velocity]on 44-16-7968XLD (Bld) [Velocity]34 mm/hHighTrinity Health System [facility] Medical CenterInterpretation and review of laboratory resultsAbnormalCleveland [facility] (Bld) [Velocity]34 mm/hHigh 0-15[facility] Community HospitalComment on above:Order Comment: Specimen Type: BLOOD SPECIMENOrdering Facility: [facility] Address:[address] [place], [place] [address]Performed By: #### 41959-6, 4537-7 ####[facility] LABCLIA [id number] [address] STATES OF TR[facility] SYSTEM WEST CAMPUSHIGH SENSITIVITY C-REACTIVE PROTEINon 96-06-0309SWR High sensitivity method [Mass/Vol]13.2 mg/LHighNINF - 3.1 mg/LCDiley Ridge Medical Center Comment on above:hsCRP < 1.0 mg/L, relative risk is low hsCRP 1.0-3.0 mg/L, relative risk is average hsCRP > 3.0 mg/L, relative risk is high Reference: Roman TA, Wilma CHRISTY, Octavio JOHNSON, et al. Markers of Inflammation and Cardiovascular Disease. Application to Clinical and Public Health Practice. A Statement for Healthcare Professionals from the Centers for Disease Control and Prevention and the English Heart Association. Circulation 2003;107:499-511. Laboratory - Chemistry and Chemistry - challengeon 98-65-3462Mkiwd glutamyl transferase [Catalytic activity/Vol]136 U/LHigh10 - 70 U/LCDiley Ridge Medical Center Magnesium [Mass/Vol]2.2 mg/dL1.7 - 2.3 mg/dLTrinity Health System Twin City Medical CenterMagnesium [Mass/Vol] on 99-27-9031Tgdjbzpegzzeyo and review of laboratory resultsNormalCDiley Ridge Medical CenterNo Panel Informationon 63-74-6135Ghvqrzmmbijbbe and review of laboratory resultsAbnormalCblanchard valley health system bluff[facility] hospitaland [facility] Hospital CompanyInterpretation and review of laboratory resultsAbnormalCSelect Medical Cleveland Clinic [facility] Hospital, BeachwoodProt/Creat Uron 89-65-8803Hcafddr/Creatinine (U) [Mass ratio]mg/gHigh<0.15[facility] on above:Order Comment: Specimen Type: URINE SPECIMENOrdering Facility: [facility] Address:[address] [place], [place] [address]Result Comment: Adult Proteinuria Categories:<0.15 mg/mg is considered normal to mildly increased0.15 - 0.50 mg/mg is considered moderately increased>0.50 mg/mg is considered severely increasedKDIGO. (2013). KDIGO 2012 Clinical Practice Guideline for the Evaluation and Management of Chronic Kidney Disease. Official Journal of the International Society of Nephrology, 3(1), 1-150.Performed By: #### 2890-2 ####[facility] LABCLIA [id number] [place] [address] [place] Protein/Creatinine (U) [Mass ratio]on 67-45-4348Hpnbdqcjdk (U) [Mass/Vol]12.6 mg/dLLow20.0-300.0[facility] on above:Order Comment: Specimen Type: URINE SPECIMENOrdering Facility: [facility] Address:[address] [place], [place] [address]Performed By: #### 2890-2 ####[facility] [facility] LABCLIA [id number] [facility] [id number] [place] [address] [place] OF AMERICAProtein (U) [Mass/Vol]mg/dLNormal 0-20[facility] on above:Order Comment: Specimen Type: URINE SPECIMENOrdering Facility: [facility] Address:[address] [place], [place] [address]Performed By: #### 2890-2 ####[facility] LABCLIA [id number] [facility] HOSPITALIVIRNCKHOGO28[place]TBBTRAO, [place] [address] [place] [facility]ST CAMPUSUA DIP, URINE (POC)on 84-77-6018UELXSVEND UA (POCT)Negative NegativeTrinity Health System Twin City Medical CenterCLARITY UA (POCT)ClearCleohiohealth shelby hospital ClinicCOLOR UA (POCT) Light yellowTrinity Health System Twin City Medical CenterGLUCOSE UA (POCT)NegativeNegative mg/dLTrinity Health System Twin City Medical CenterHemoglobin Ql (U)NegativeNegativeTrinity Health System Twin City Medical CenterKETONE UA (POCT)Negative Negative mg/dLTrinity Health System [facility] Medical CenterLEUKOCYTES UA (POCT)NegativeNegativeTrinity Health System Twin City Medical CenterNITRITE UA (POCT)NegativeNegativeTrinity Health System Twin City Medical CenterPH UA (POCT)74.5 - 8.0 [facility] CenterProtein Ql (U)NegativeNegative mg/dLGreen Cross HospitalPECIFIC GRAVITY UA (POCT)1.0151.005 - 1.030[facility] Medical CenterUROBILINOGEN UA (POCT)0.2 Normal E.U./dLTrinity Health System Twin City Medical CenterLocation:[facility], [address] [place] [address], [address] [place] [address] POINT OF CARETrinity Health System Twin City Medical CenterCBC panel Auto (Bld)on 28-19-1126Wctjikuygsx distribution width (RBC) [Ratio]15.7 %High 11.5 - 15.0 %[facility] Medical CenterHematocrit (Bld) [Volume fraction]39.8 %39.0 - 51.0 %[facility] CenterHemoglobin (Bld) [Mass/Vol]13 g/dL13.0 - 17.0 g/dLTrinity Health System Twin City Medical CenterInterpretation and review of laboratory resultsAbnormalCleveland Hutchinson Health HospitalH (RBC) [Entitic mass]31.9 pg26.0 - 34.0 pgCleveland Hutchinson Health HospitalHC (RBC) [Mass/Vol] 32.7 g/dL30.5 - 36.0 g/dLKettering Health DaytonV (RBC) [Entitic vol]97.5 fL80.0 - 100.0 fLCleveland ClinicNucleated RBC (Bld) [#/Vol]NINFCleveland ClinicPlatelet mean volume (Bld) [Entitic vol]10.9 fL9.0 - 12.7 fLClevelanson community hospital ClinicPlatelets (Bld) [#/Vol]183 10*3/uLTrinity Health System Twin City Medical CenterRBC (Bld) [#/Vol]4.08 10*6/uLLow4.20 - 6.00 m/[facility] Cleveland-FairhillWBC (Bld) [#/Vol]7.85 10*3/uLSelect Medical Specialty Hospital - Southeast OhioErythrocyte distribution width (RBC) [Ratio]15.7 %High11.5-15.0Prom[facility] Fostoria Community HospitalComment on above:Order Comment: Specimen Type: BLOOD SPECIMENOrdering Facility: [facility] Address:[address] [place], [place] [address]Performed By: #### 14372-2 ####[facility] [id number] [place] [address] [place] OF AMERICAHematocrit (Bld) [Volume fraction]39.8 %Pgnqko60.0-51.0[facility] on above:Order Comment: Specimen Type: BLOOD SPECIMENOrdering Facility: [facility] Address:[address] [place], [place] [address]Performed By: #### 95372-4 ####[facility] [id number] [place] [address] [place] Hemoglobin (Bld) [Mass/Vol]13.0 g/hSVjikjq27.0-17.0[facility] Comment on above:Order Comment: Specimen Type: BLOOD SPECIMENOrdering Facility: [facility] Address:[address] [place] [address] Performed By: #### 03380-7 ####[facility]ITALIA [id number] [place] [address] [place] MCH (RBC) [Entitic mass]31.9 qjMfhmps27.0-34.0[facility] on above:Order Comment: Specimen Type: BLOOD SPECIMENOrdering Facility: [facility] Address:[address] [place] [address] Performed By: #### 76200-6 ####[facility] [id number] [place] [address] [place] MCHC (RBC) [Mass/Vol]32.7 g/vYEvvhiy14.5-36.0[facility] on above:Order Comment: Specimen Type: BLOOD SPECIMENOrdering Facility: [facility] Address:[address] [place] [address] Performed By: #### 45989-4 ####[facility] LABIA [id number] [place] [address] [place] MCV (RBC) [Entitic vol]97.5 mZXquaqv62.0-100.0[facility] on above:Order Comment: Specimen Type: BLOOD SPECIMENOrdering Facility: [facility] Address:[address] [place] [address] Performed By: #### 10355-7 ####[facility] [id number] [place] [address] [place] Nucleated RBC (Bld) [#/Vol]10*3/uLNormal<0.01[facility] on above:Order Comment: Specimen Type: BLOOD SPECIMENOrdering Facility: [facility] Address:[address] [place] [address] Performed By: #### 96133-7 ####[facility] LAB[facility] [id number] [place] [address] [place] Platelet mean volume (Bld) [Entitic vol]10.9 fLNormal9.0-12.7[facility] on above:Order Comment: Specimen Type: BLOOD SPECIMENOrdering Facility: [facility] Address:[address] [place], [place] [address]Performed By: #### 59191-7 ####[facility] LABIA [id number] [address] [address] [place] Platelets (Bld) [#/Vol]183 10*3/rCZdvvon318-006XmtjmrxrpMartin [facility] Hospital on above:Order Comment: Specimen Type: BLOOD SPECIMENOrdering Facility: [facility] Address:[address] [place] [address] Performed By: #### 75499-7 ####[facility] LABIA [id number] [place] [address] [place] RBC (Bld) [#/Vol]4.08 10*6/uLLow4.20-6.00[facility] on above:Order Comment: Specimen Type: BLOOD SPECIMENOrdering Facility: [facility] Address:[address] [place], [place] [address]Performed By: #### 55615-5 ####[facility]ITALIA [id number] [place] [address] [place] AMERICAWBC (Bld) [#/Vol]7.85 10*3/uLNormal3.70-11.00[facility] on above:Order Comment: Specimen Type: BLOOD SPECIMENOrdering Facility: [facility] Address:[address] [place], [place] [address]Performed By: #### 96407-1 ####[facility] [id number] [place] [address] [place] OF AMERICACNOVon 82-69-6851AIKYCllsgc [facility] Community HospitalComprehensive metabolic 2000 panelon 76-06-0768Klzxssx [Mass/Vol]4.2 g/dLNormal3.9-4.9[facility] on above:Order Comment: Specimen Type: BLOOD SPECIMENOrdering Facility: [facility] Address:[address] [place], [place] [address]Performed By: #### 06393- 8, , 2323-07 ####[facility] LABCLIA [id number] [address] [place] [address] [place] AMERICAALP [Catalytic activity/Vol]124 U/UFbnh25-707SvuawiebpMartin [facility] Hospital on above:Order Comment: Specimen Type: BLOOD SPECIMENOrdering Facility: [facility] Address:[address] [place], [place] [address]Performed By: #### 64625- 8, , 2323-07 ####[facility] LABCLIA [id number] [address] [place] [address] [place] AMERICAALT [Catalytic activity/Vol]40 U/DTemtla99-55HftnpeztxMartin [facility] Hospital on above:Order Comment: Specimen Type: BLOOD SPECIMENOrdering Facility: [facility] Address:[address] [place], [place] [address]Performed By: #### 15485- 8, , 2323-07 ####[facility] LABCLIA [id number] [address] [address] [place] AMERICAAnion gap [Moles/Vol] 13 mmol/LNormal8-15[facility] on above:Order Comment: Specimen Type: BLOOD SPECIMENOrdering Facility: [facility] Address:[address] [place], [place] [address]Performed By: #### 66346-0, , 2323-07 ####[facility] LABCLIA [id number] [address] [place] [address] [place] AMERICAAST [Catalytic activity/Vol]49 U/OYfwy69-71EoejurcqkMartin [facility] Hospital on above:Order Comment: Specimen Type: BLOOD SPECIMENOrdering Facility: [facility] Address:[address] [place], [place] [address]Performed By: #### 08444-1, , 2323-07 ####[facility] LABCLIA [id number] [address] [place] AMERICABilirubin [Mass/Vol]0.7 mg/dL Normal0.2-1.3[facility] on above:Order Comment: Specimen Type: BLOOD SPECIMENOrdering Facility: [facility] Address:[address] [place], [place] [address]Performed By: #### 33326-7, 47767-8, 2 ####[facility] LABCLIA [id number] [place] [address] [place] AMERICACalcium [Mass/Vol]9.3 mg/dLNormal 8.5-10.2ClevelTrinity Health System West Campus on above:Order Comment: Specimen Type: BLOOD SPECIMENOrdering Facility: [facility] Address:[address] [place], [place] [address]Performed By: #### 26223-3, 48790-6, 2323-07 ####[facility] LABCLIA [id number] [address] [place] AMERICAChloride [Moles/Vol]100 mmol/L Avfsqi21-360IdwfsryyqMartin [facility] Hospital on above:Order Comment: Specimen Type: BLOOD SPECIMENOrdering Facility: [facility] Address:[address] [place], [place] [address]Performed By: #### 24333-3, , 2323-07 ####[facility] LABCLIA [id number] [place] [address] [place] AMERICACO2 [Moles/Vol]28 mmol/LNormal 22-30[facility] on above:Order Comment: Specimen Type: BLOOD SPECIMENOrdering Facility: [facility] Address:[address] [place], [place] [address]Performed By: #### 87145-2, 38163-2, 2323-07 ####[facility] LABCLIA [id number] [place] [address] [place] AMERICACreatinine [Mass/Vol]1.13 mg/dL Normal0.73-1.22[facility] on above:Order Comment: Specimen Type: BLOOD SPECIMENOrdering Facility: [facility] Address:[address] [place], [place] [address]Performed By: #### 21710-2, , 2323- ####[facility] LABIA [id number] [place]IL[place] [address] [place] AMERICACreatinine and Glomerular filtration rate.predicted panel (S/P/Bld)69 mL/min/1.73m???Normal>=60[facility] on above:Order Comment: Specimen Type: BLOOD SPECIMENOrdering Facility: [facility] Address:[address] [place], [place] [address]Result Comment: Estimated Glomerular Filtration Rate (eGFR) is calculated using the 2020 CKD-EPI creatinine equation. This equation utilizes serum creatinine, sex, and age as parameters. The creatinine assay has traceable calibration to isotope dilution-mass spectrometry. Refer to KDIGO guidelines for clinical interpretation. In patients with unstable renal function, e.g. those with acute kidney injury, the eGFR may not accurately reflect actual GFR.Performed By: #### 50175-5, , 2323-07 ####[facility] LABIA [id number] [address] [place] AMERICAGlucose [Mass/Vol]104 mg/qMPcmn52-33ZajhuhiwcMartin [facility] Hospital on above:Order Comment: Specimen Type: BLOOD SPECIMENOrdering Facility: [facility] Address:[address] [place] [address]Asncfp Comment: The English Diabetes Association (ADA) provides guidance for cutoff [...] Standards of Medical Care in Diabetes 2016, English Diabetes Association. Diabetes Care. 2016.39(Suppl 1).Performed By: #### 07160- 8, , 2323-07 ####[facility] LABCLIA [id number] VIL[place] [address] [place] AMERICAPotassium [Moles/Vol] 3.8 mmol/LNormal3.7-5.1[facility] on above:Order Comment: Specimen Type: BLOOD SPECIMENOrdering Facility: [facility] Address:[address] [place], [place] [address]Performed By: #### 49354-5, , 2323-07 ####[facility] LABIA [id number] [place]IL[place] [address] [place] AMERICAProtein [Mass/Vol]7.5 g/dLNormal 6.3-8.0[facility] on above:Order Comment: Specimen Type: BLOOD SPECIMENOrdering Facility: [facility] Address:[address] [place], [place] [address]Performed By: #### 08365-7, , 2323-07 ####[facility] [id number] VIL[place] [address] [place] STATES OF AMERICASodium [Moles/Vol]141 mmol/L Htpsnb856-798FgctnihhwMartin [facility] Hospital on above:Order Comment: Specimen Type: BLOOD SPECIMENOrdering Facility: [facility] Address:[address] [place], [place] [address]Performed By: #### 56979-2, , 2323-07 ####[facility] LABIA [id number] [address] [address] [place] AMERICAUrea nitrogen [Mass/Vol]33 mg/dL High9-24[facility] on above:Order Comment: Specimen Type: BLOOD SPECIMENOrdering Facility: [facility] Address:[address] [place], [place] [address]Performed By: #### 10872-6, 55203-1, 4-2 ####[facility] LABCLIA [id number] [place] [address] [place] AMERICAGGT SerPl-cCncon 97-19-5077Ihsst glutamyl transferase [Catalytic activity/Vol]136 U/XFawt85-43JkyyvcyykKnox Community [facility] on above:Order Comment: Specimen Type: BLOOD SPECIMENOrdering Facility: [facility] Address:[address] [place], [place] [address]Performed By: #### 16133-6, 95496-8, 232- ####[facility] LABCLIA [id number] STATES OF AMERICALDH Fld-cCncon 51-11-7397VRD (Body fld) [Catalytic activity/Vol]110 U/LNormalSee CommentMartin Memorial Hospital on above: Order Comment: Specimen Type: SPECIMEN FROM PLEURA OBTAINED BY THORACENTESISOrdering Facility: [facility] Address: [address] [place], [place] [address]Result Comment: Pleural fluids: Pleural fluid lactate dehydrogenase [...] document C49A. RAJEEV Bui: Clinical Laboratory Standards [place]: 2007.Reference: 2. Rafael STARK, Fei Doyle. Body [...] 2529-6, 2881-1 ####[facility] LABCLIA [id number] [place] [address] [place] AMERICAMagnesium SerPl-ncon 76-91-6437Gizlwsnxc [Mass/Vol]2.2 mg/dLNormal 1.7-2.3CUniversity Hospitals Cleveland Medical CenterComsurgeons choice medical center on above:Order Comment: Specimen Type: BLOOD SPECIMENOrdering Facility: [facility] Address:[address] [place], [place] [address]Performed By: #### 81015-4, 14242-8, 2324-2 ####[facility] LABCLIA [id number] [address] [place] AMERICAOPERATIVE NOon 10-14-2024 OPERATIVE NONormalPromedica Fostoria Community HospitalProt Fld-mCncon 23-42-0079Fgrffhk (Body fld) [Mass/Vol]2.5 g/dLNormalSee CommentMartin Memorial Hospital on above:Order Comment: Specimen Type: SPECIMEN FROM PLEURA OBTAINED BY THORACENTESISOrdering Facility: [facility] Address: [address] [place], [place] [address]Result Comment: Serous fluids: Effusions are the accumulation [...] document C49A. RAJEEV Bui: Clinical Laboratory Standards [place]: 2007.Performed By: #### 2529-6, 2881-1 ####[facility] LABCLIA [id number] [place] [address] [place] AMERICAUS Chest limitedon 74-93-2985Vjiyddtao Study observation (narrative)[facility] CenterXR CHEST 2V FRONTAL/LATon 86-40-1262UF CHEST 2V FRONTAL/LATNormalClevelFirstHealth Moore Regional HospitalXR Chest PA and Lateralon 17-18-1336RNFKFQBUKX: 1. Small located/partially loculated right pleural effusion, [...] any questions regarding this interpretation, please call [phone]. If you are unable to reach us at the number above, please feel free to contact [facility] eRadiology at [phone].DIVISION OF RADIOLOGY* * *Final Report* * * [...] and soft tissues: Unremarkable. DIVISION OF RADIOLOGYProvider, [facility] - 10/13/2024 * * *Final Report* * [...] any questions regarding this interpretation, please call [phone]. If you are unable to reach us at the number above, please feel free to contact [facility] eRadiology at [phone]. [facility] Medical CenterRadiology Study observation (narrative)[facility] CenterXR Chest PA and LateralOrdered By: Ccf Provider on 57-05-1594Bbezjypuo ClinicCNPNon 35-82-0318PKBNGtkeheNtwctnpanSouthwest General Health CenterBRIEF OP NOTon 95-70-1743LOXAG OP NOTNormalCUniversity Hospitals Cleveland Medical CenterCNPNon 76-21-8525CEZDRdyxbwAaqgnvuct Clinic ClevelandANES POSTPROC EVALon 15-37-9931SRCV POSTPROC EVALNormalCUniversity Hospitals Cleveland Medical CenterANES PRE-OPon 68-34-2520FTUI PRE-OPNormalPromedica Fostoria Community HospitalEGD Study observation Narrativeon 02-94-7607Qiylrrwha ClinicRadiology Study observation (narrative)[facility] CenterHISTORY PHYSICALon 06-27-6281UJXCNEO PHYSICALNormalCUniversity Hospitals Cleveland Medical CenterNURSING PROGon 50-45-5637VZNVNMA PROG [facility] HospitalNURSING PROGNormalPromedica Fostoria Community Hospital Pathology biopsy report Abhijit (Tiss)on 68-07-0510LWCGDGJA 1:[facility] on above:Order Comment: Specimen Type: TISSUE SPECIMENOrdering Facility: [facility] Address: [address] [place], [place] [address]Result Comment: Addendum is issued to reflect the result of immunohistochemical stain:- Immunostainfor H. pylori is negative in part A.Addendum electronically signed by Simba Frias MD, PhD on 10/01/2024 at 1725 EDTPerformed By: #### 09653-4 ####[facility]PITALIA [id number] [address] STATES OF [place] AP DISCLAIMERNormSt. Mary's Medical Center on above:Order Comment: Specimen Type: TISSUE SPECIMENOrdering Facility: [facility] Address: [address] [place], [place] [address]Result Comment: Laboratory Developed Test (LDT) Disclaimer:Performance characteristics of immunohist ochemical, immunofluorescent, and chromogenic in-situ hybridization tests have been determined by the performing laboratory within [facility]'s [facility] Pathology and Laboratory Medicine Department ([facility], [facility], [facility], [facility], [facility], [facility], or [facility]) in a manner consistent with CLIA requirements. One or more of these tests may not have been cleared or approved by the FDA. [facility] is regulated under CLIA as qualified to perform high-complexity testing. These tests are used for clinical purposes. These should not be regarded as investigational or for research. Positive and negative controls stain appropriately.Performed By: #### 88686-5 ####[facility] LABIA [id number] [place] [address] [place] AMERICACASE REPORTNormSt. Mary's Medical Center on above:Order Comment: Specimen Type: TISSUE SPECIMENOrdering Facility: [facility] Address: [address] [place], [place] [address]Result Comment: Surgical Pathology Report Case: [id number] Provider: Shay Dennis MD Collected: 09/25/2024 11:32 AMOrdering Location: Gastroenterology Received: 09/25/2024 04:32 PMPathologist: Simba Frias MD, PhDSpecimen: Stomach, Biopsy, R/O: H. PyloriPerformed By: #### 96320-1 ####[facility] LABCLIA [id number] [address] [place] [address] [facility]IORAL HEALTHFINAL DIAGNOSISLakeHealth TriPoint Medical Center on above:Order Comment: Specimen Type: TISSUE SPECIMENOrdering Facility: [facility] Address: [address] [place], [place] [address]Result Comment: A. Stomach, biopsy:- Chronic focally active gastritis and reactive gastropathy in antral and oxyntic mucosa.- Negative for intestinal metaplasia or dysplasia.- H. pylori immunostain will be reported as an addendum. at 1344 EDTPerformed By: #### 14108-7 ####[facility] LABCLIA [id number] [address] [facility] LABLakeHealth Tri[facility] Medical Center on above:Order Comment: Specimen Type: TISSUE SPECIMENOrdering Facility: [facility] Address: [address] [place], [place] [address]Result Comment: Diagnostic interpretation performed at: [facility], [address] [place], [place] [address] CLIA# [id number] Director: RAYRAY Thompsonerformed By: #### 42255-3 ####[facility] LABCLIA [id number] [address] [place] [address] [facility]AVIORAL HEALTHGROSS DESCRIPTIONLakeHealth [facility] Center on above:Order Comment: Specimen Type: TISSUE SPECIMENOrdering Facility: [facility] Address: [address] [place] [address]Yphqxz Comment: A. Stomach, BiopsyReceived in formalin are multiple pieces of de la garza, soft tissue aggregating to 1.9 x 0.3 x 0.2 cm. Totally submitted in one cassette.Gross examination performed at [facility], [address] [place], [place] [address]KK September 25, 2024 6:03 PMPerformed By: #### 01137-0 ####[facility] LABCLIA [id number] [address] OF [facility]AMPUSUpper GI endoscopyon 13-59-2582Sjpmz GI endoscopyNormalCUniversity Hospitals Cleveland Medical CenterCNPNon 09-23-2024 CNPNNormalPromedica Fostoria Community HospitalNURSING PROGon 70-98-6995CCSQMFB PROGNormal [facility] Community HospitalCNPNon 41-06-9982UALGRkxtcqLhwsunepa Clinic Cleveland Basic metabolic 2000 panelon 09-76-9928Sevnz gap [Moles/Vol]13 mmol/LNormal8-15 [facility] on above:Order Comment: Specimen Type: BLOOD SPECIMENOrdering Facility: [facility] Address:[address] [place], [place] [address]Performed By: #### 10172-3 ####[facility] LABCLIA [id number] [place], [place] [address]Xfmaqab [Mass/Vol]9.2 mg/dLNormal8.5-10.2[facility] on above: Order Comment: Specimen Type: BLOOD SPECIMENOrdering Facility: [facility] Address:[address] [place] [address]Qogberdkc By: #### 83212- 2 ####[facility] LABCLIA [id number] [place], [place] [address]Gckptwjk [Moles/Vol]100 mmol/KZufmly08-040YedhlwtcsMartin Memorial Hospital on above:Order Comment: Specimen Type: BLOOD SPECIMENOrdering Facility: [facility] Address:[address] [place], [place] [address]Performed By: #### 07869-1 ####[facility] LABCLIA [id number] [place], [place] [address]OB4 [Moles/Vol] 24 mmol/UWezlhn60-23MovafqfdmMartin Memorial Hospital on above:Order Comment: Specimen Type: BLOOD SPECIMENOrdering Facility: [facility] Address:[address] [place], [place] [address]Performed By: #### 02438-7 ####[facility] LABCLIA [id number] [place], [place] [address]Rpvbccfalx [Mass/Vol]1.71 mg/dLHigh0.73-1.22[facility] on above:Order Comment: Specimen Type: BLOOD SPECIMENOrdering Facility: [facility] Address:[address] [place], [place] [address]Performed By: #### 64735-9 ####[facility] LABIA [id number] [place], [place] [address]Rjnjtbbjwx and Glomerular filtration rate.predicted panel (S/P/Bld)42 mL/min/1.73m???Low>=60 [facility] on above:Order Comment: Specimen Type: BLOOD SPECIMENOrdering Facility: [facility] Address:[address] [place], [place] [address]Result Comment: Estimated Glomerular Filtration Rate (eGFR) is calculated using the 2020 CKD-EPI creatinine equation. This equation utilizes serum creatinine, sex, and age as parameters. The creatinine assay has traceable calibration to isotope dilution-mass spectrometry. Refer to KDIGO guidelines for clinical interpretation. In patients with unstable renal function, e.g. those with acute kidney injury, the eGFR may not accurately reflect actual GFR.Performed By: #### 81381-2 ####[facility] LABIA [id number] [place], [place] [address]Gdrqywv [Mass/Vol]107 mg/aDCnpl70-34DqfebggdwMartin Memorial Hospital on above:Order Comment: Specimen Type: BLOOD SPECIMENOrdering Facility: [facility] Address:[address] [place], [place] [address]Result Comment: The English Diabetes Association (ADA) provides guidance for cutoff [...] Standards of Medical Care in Diabetes 2016, English Diabetes Association. Diabetes Care. 2016.39(Suppl 1).Performed By: #### 10949-0 ####[facility] LABCLIA [id number] [place], [place] [address]Byzyakixm [Moles/Vol]4.9 mmol/LNormal3.7-5.1[facility] on above: Order Comment: Specimen Type: BLOOD SPECIMENOrdering Facility: [facility] Address:[address] [place], [place] [address]Performed By: #### 64471- 2 ####[facility] LABCLIA [id number] [place], [place] [address]Wihxdk [Moles/Vol]137 mmol/WWjhwle542-724VgmyikaeaMartin Memorial Hospital on above:Order Comment: Specimen Type: BLOOD SPECIMENOrdering Facility: [facility] Address:[address] [place], [place] [address]Performed By: #### 64672-0 ####[facility] LABCLIA [id number] [place], [place] [address]Dvai nitrogen [Mass/Vol]53 mg/dLHigh9-24[facility] on above:Order Comment: Specimen Type: BLOOD SPECIMENOrdering Facility: [facility] Address:[address] [place], [place] [address]Performed By: #### 06318-1 ####[facility] LABIA [id number] [place] [address] CBC panel Auto (Bld)on 54-92-0130Ymdltxqirun distribution width (RBC) [Ratio] 15.8 %High11.5-15.0[facility] on above:Order Comment: Specimen Type: BLOOD SPECIMENOrdering Facility: [facility] Address:[address] [place], [place] [address]Performed By: #### 53816-4 ####[facility] LABIA [id number] [place], [place] [address]Ncsajkphwb (Bld) [Volume fraction]37.8 %Low39.0-51.0 [facility] on above:Order Comment: Specimen Type: BLOOD SPECIMENOrdering Facility: [facility] Address:[address] [place], [place] [address]Performed By: #### 32736-6 ####[facility] LABIA [id number] [place], [place] [address]Ucihfduhxi (Bld) [Mass/Vol]12.0 g/dLLow13.0-17.0[facility] on above:Order Comment: Specimen Type: BLOOD SPECIMENOrdering Facility: [facility] Address:[address] [place], [place] [address]Performed By: #### 68980- 2 ####[facility] LABIA [id number] [place], [place] [address]GAR (RBC) [Entitic mass]31.3 fkTajvxx67.0-34.0[facility] on above:Order Comment: Specimen Type: BLOOD SPECIMENOrdering Facility: [facility] Address:[address] [place], [place] [address]Performed By: #### 13519-3 ####[facility] LABIA [id number] [place], [place] [address]YSZP (RBC) [Mass/Vol]31.7 g/jUDqhncs91.5-36.0[facility] on above: Order Comment: Specimen Type: BLOOD SPECIMENOrdering Facility: [facility] Address:[address] [place], [place] [address]Performed By: #### 04699- 2 ####[facility] LABCLIA [id number] [place], [place] [address]JKE (RBC) [Entitic vol]98.4 qMQdiovg87.0-100.0[facility] on above:Order Comment: Specimen Type: BLOOD SPECIMENOrdering Facility: [facility] Address:[address] [place], [place] [address]Performed By: #### 13251-3 ####[facility] LABCLIA [id number] [place], [place] [address]Mnxevaksp RBC (Bld) [#/Vol]10*3/uLNormal<0.01[facility] on above:Order Comment: Specimen Type: BLOOD SPECIMENOrdering Facility: [facility] Address:[address] [place], [place] [address]Performed By: #### 03525- 2 ####[facility] LABCLIA [id number] [place], [place] [address]Ydmkjotb mean volume (Bld) [Entitic vol]9.9 fLNormal 9.0-12.7[facility] on above:Order Comment: Specimen Type: BLOOD SPECIMENOrdering Facility: [facility] Address:[address] [place], [place] [address]Performed By: #### 76376-9 ####[facility] LABCLIA [id number] [place], [place] [address]Robxwqdae (Bld) [#/Vol]250 10*3/dWPlhgtt527-800ZkdenkqrwMartin Memorial Hospital on above: Order Comment: Specimen Type: BLOOD SPECIMENOrdering Facility: [facility] Address:[address] [place] [address]Dwiwiogso By: #### 88168- 2 ####[facility] LABIA [id number] [place], [place] [address]HIC (Bld) [#/Vol]3.84 10*6/uLLow4.20-6.00[facility] HospitalComment on above:Order Comment: Specimen Type: BLOOD SPECIMENOrdering Facility: [facility] Address:[address] [place] [address]Yeqbvxknr By: #### 57852-3 ####[facility]ITALIA [id number] [place], [place] [address]ZNE (Bld) [#/Vol]11.59 10*3/uL High3.70-11.00[facility] Community HospitalComsurgeons choice medical center on above:Order Comment: Specimen Type: BLOOD SPECIMENOrdering Facility: [facility] Address:[address] [place], [place] [address]Performed By: #### 75971-5 ####[facility] LABIA [id number] [place] [address] CNPNon 38-28-8393STDAQhjamnXimmcoitg Clinic ClevelandOPERATIVE NOon 09-04-2024 OPERATIVE NONormalPromedica Fostoria Community HospitalComprehensive metabolic 2000 panelon 48-28-8744Ykvidhl [Mass/Vol]4.1 g/dLNormal3.9-4.9CUniversity [facility]als [facility] Comment on above:Order Comment: Specimen Type: BLOOD SPECIMENOrdering Facility: [facility] Address:[address] [place], [place] [address] Performed By: #### 45241-5, 91273-9 ####[facility] LABIA [id number] [place], [place] [address]NPX [Catalytic activity/Vol]140 U/IPimf26-741DiswgnycmMartin Memorial Hospital on above:Order Comment: Specimen Type: BLOOD SPECIMENOrdering Facility: [facility] Address:[address] [place], [place] [address]Performed By: #### 11420- 9, 41249-7 ####[facility] LABCLIA [id number] [place], [place] [address]IDC [Catalytic activity/Vol]12 U/SEmysfw00-95 [facility] on above:Order Comment: Specimen Type: BLOOD SPECIMENOrdering Facility: [facility] Address:[address] [place], [place] [address]Performed By: #### 06203-2, 11343-2 ####[facility] LABCLIA [id number] [place], [place] [address]Uhsyd gap [Moles/Vol]18 mmol/LHigh8-15[facility] on above:Order Comment: Specimen Type: BLOOD SPECIMENOrdering Facility: [facility] Address:[address] [place], [place] [address]Performed By: #### 58406- 9, 24728-8 ####[facility] LABCLIA [id number] [place], [place] [address]NPD [Catalytic activity/Vol]27 U/HLqvjmj92-53 [facility] on above:Order Comment: Specimen Type: BLOOD SPECIMENOrdering Facility: [facility] Address:[address] [place], [place] [address]Performed By: #### 06181-5, 66698-3 ####[facility] LABCLIA [id number] [place] [address] Bilirubin [Mass/Vol]0.6 mg/dLNormal0.2-1.3[facility] on above:Order Comment: Specimen Type: BLOOD SPECIMENOrdering Facility: [facility] Address:[address] [place], [place] [address]Performed By: #### 18381-0, 33278-8 ####[facility] LABCLIA [id number] [place], [place] [address]Chukqbz [Mass/Vol]9.1 mg/dLNormal8.5-10.2 [facility] on above:Order Comment: Specimen Type: BLOOD SPECIMENOrdering Facility: [facility] Address:[address] [place], [place] [address]Performed By: #### 10441-4, 63713-6 ####[facility] LABCLIA [id number] [place], [place] [address]Fjbskgvh [Moles/Vol]96 mmol/JRtr62-481SoafdnjpoMartin Memorial Hospital on above:Order Comment: Specimen Type: BLOOD SPECIMENOrdering Facility: [facility] Address:[address] [place], [place] [address]Performed By: #### 62418- 9, 48097-3 ####[facility] LABCLIA [id number] [place], [place] [address]ZD7 [Moles/Vol]28 mmol/EWpidnl20-72MyaeghmjbMartin Memorial Hospital on above:Order Comment: Specimen Type: BLOOD SPECIMENOrdering Facility: [facility] Address:[address] [place], [place] [address]Performed By: #### 67579-1, 08093-0 ####[facility] LABCLIA [id number] [place], [place] [address]Vwwrcpiqet [Mass/Vol] 1.72 mg/dLHigh0.73-1.22[facility] on above:Order Comment: Specimen Type: BLOOD SPECIMENOrdering Facility: [facility] Address:[address] [place], [place] [address]Performed By: #### 57972-6, 60716-9 ####[facility] LABCLIA [id number] [place], [place] [address]Czztlkdbpo and Glomerular filtration rate.predicted panel (S/P/Bld)41 mL/min/1.73m???Low>=60[facility] on above: Order Comment: Specimen Type: BLOOD SPECIMENOrdering Facility: [facility] Address:[address] [place], [place] [address]Eqmtyj Comment: Estimated Glomerular Filtration Rate (eGFR) is [...] not accurately reflect actual GFR.Performed By: #### 73891-3, 16309-7 ####[facility] LABCLIA [id number] [place], [place] [address]Znrnpid [Mass/Vol]189 mg/zYNhfm42-00TjkiudyucMartin Memorial Hospital on above:Order Comment: Specimen Type: BLOOD SPECIMENOrdering Facility: [facility] Address:[address] [place] [address]Axztci Comment: The English Diabetes Association (ADA) provides guidance for cutoff [...] Standards of Medical Care in Diabetes 2016, English Diabetes Association. Diabetes Care. 2016.39(Suppl 1).Performed By: #### 61591- 9, 74311-0 ####[facility] LABCLIA [id number] [place], [place] [address]Zhkblqxqv [Moles/Vol]3.1 mmol/LLow3.7-5.1[facility] on above:Order Comment: Specimen Type: BLOOD SPECIMENOrdering Facility: [facility] Address:[address] [place], [place] [address]Llzajapzo By: #### 71514-4, 00920-9 ####[facility] LABCLIA [id number] [place], [place] [address]Ytgovoh [Mass/Vol]7.4 g/dLNormal6.3-8.0[facility] on above:Order Comment: Specimen Type: BLOOD SPECIMENOrdering Facility: [facility] Address:[address] [place], [place] [address]Performed By: #### 54133- 9, 57254-5 ####[facility] LABCLIA [id number] [place], [place] [address]Pajhxk [Moles/Vol]142 mmol/NBnsoln100-270UakhzbivaMartin Memorial Hospital on above:Order Comment: Specimen Type: BLOOD SPECIMENOrdering Facility: [facility] Address:[address] [place], [place] [address]Performed By: #### 09356-3, 79755-4 ####[facility] LABCLIA [id number] [place], [place] [address]Qbju nitrogen [Mass/Vol]45 mg/dLHigh9-24[facility] on above: Order Comment: Specimen Type: BLOOD SPECIMENOrdering Facility: [facility] Address:[address] [place], [place] [address]Performed By: #### 93891- 9, 82866-6 ####[facility] LABCLIA [id number] [place], [place] [address]Kolqfzscxt - Chemistry and Chemistry - challengeon 81-33-6319Xicupqh [Mass/Vol]4.1 g/dL3.9-4.9[facility] HospitalALP [Catalytic activity/Vol]140 U/OPyep07-781WavinxkynMemorial Health System Marietta Memorial HospitalALT [Catalytic activity/Vol]12 U/Z61-17WitvjqofeMemorial Health System Marietta Memorial HospitalAST [Catalytic activity/Vol]27 U/A81-19NpggzulusMemorial Health System Marietta Memorial HospitalBilirubin [Mass/Vol]0.6 mg/dL0.2-1.3FOhioHealth Nelsonville Health CenterCalcium [Mass/Vol]9.1 mg/dL8.5-10.2FOhioHealth Nelsonville Health CenterChloride [Moles/Vol]96 mmol/LLow 98-107[facility] HospitalCO2 [Moles/Vol]28 mmol/L84-49QupeknbfiMemorial Health System Marietta Memorial HospitalCreatinine [Mass/Vol]1.72 mg/dLHigh0.73-1.22[facility] HospitalGlucose [Mass/Vol]189 mg/bPEmyl34-80OrxcpdxqbMemorial Health System Marietta Memorial HospitalComment on above:The English Diabetes Association (ADA) provides guidance for cutoff [...] diabetes.Reference: Standardsof Medical Care in Diabetes 2016, English Diabetes Association. Diabetes Care. 2016.39(Suppl 1).Magnesium [Mass/Vol]2.2 mg/dL 1.7-2.3FOhioHealth Nelsonville Health CenterPotassium [Moles/Vol]3.1 mmol/LLow 3.7-5.1FSouthern Ohio Medical Centerodium [Moles/Vol]142 mmol/M812-623 [facility] HospitalUrea nitrogen [Mass/Vol]45 mg/dLHigh9-24 [facility] HospitalMagnesium SerPl-mCncon 87-08-0149Dqpzifwdi [Mass/Vol]2.2 mg/dLNormal1.7-2.3CUniversity Hospitals Cleveland Medical CenterComment on above:Order Comment: Specimen Type: BLOOD SPECIMENOrdering Facility: [facility] Address:[address] [place], [place] [address]Qnaomgswp By: #### 73218- 9, 95452-4 ####[facility] LABCLIA [id number] [place], [place] [address]Xy Panel Informationon 34-06-3859Jwomjwnpe GFR (CKD-EPI)41 mL/min/1.73m???Low>=60[facility] Memorial HospitalComment on above:Estimated Glomerular Filtration Rate [...] actual GFR.Protein [Mass/volume] in Serum or Plasmaon 73-96-5232Hsnbpun [Mass/Vol]Protein [Mass/volume] in Serum or Plasma6.3-8.0[facility] Mentor Hospitalerum or plasma anion gap determinationon 91-13-5077Ljhaz gap [Moles/Vol]Serum or plasma anion gap determinationHigh8-15[facility] HospitalCNPNon 39-10-3209TZVSNhcsflMcytoostr Clinic ClevelandBasophils Auto (Bld) [#/Vol]on 01-77-6953Kynudgogq (Bld) [#/Vol]Automated basophil count0.0-0.1FOhioHealth Nelsonville Health CenterBasophils/100 WBC Auto (Bld)on 68-71-2053Tyhtneqtl/100 WBC (Bld)Automated basophil %0.2-2.0[facility] Eosinophils/100 WBC Auto (Bld)on 81-25-9971Wxauiksplby/100 WBC (Bld)Automated eosinophil %Low0.9-7.0[facility] HospitalErythrocyte distribution width Auto (RBC) [Ratio]on 37-91-8203Flmzyblwdhu distribution width (RBC) [Ratio]Erythrocyte distribution width [Ratio] by Automated rhidzLnjv16.0-15.0 [facility] HospitalEstimated glomerular filtration rate (GFR) non- Americanon 95-09-1266LKF/1.73 sq M.predicted among non-blacks MDRD (S/P/Bld) [Vol rate/Area]Estimated glomerular filtration rate (GFR) non- AmericanLow>=60 mL/min/1.73m 2FOhioHealth Nelsonville Health CenterGlobulin Calc (S) [Mass/Vol]on 23-30-6283Jyedlevh (S) [Mass/Vol]Serum globulin measurement by calculation (mass/volume)[facility] HospitalHematocrit Auto (Bld) [Volume fraction]on 84-55-5396Xhpqwhcuqz (Bld) [Volume fraction]Hematocrit [Volume Fraction] of Blood by Automated tbfpcIgv75.0-54.0[facility] HospitalHemoglobin [Mass/volume] in Bloodon 80-19-3523Yjrhkyxquq (Bld) [Mass/Vol]Hemoglobin [Mass/volume] in SvxxnFzx36.0-18.0[facility] HospitalLaboratory - Chemistry and Chemistry - challengeon 08-31-2024 Potassium [Moles/Vol]3.4 mmol/LLow3.5-5.1FOhioHealth Nelsonville Health Center Albumin [Mass/Vol]3.3 g/dLLow3.4-5.0[facility] HospitalALP [Catalytic activity/Vol]130 U/YBdfn78-552TrqsnbswuMemorial Health System Marietta Memorial HospitalALT [Catalytic activity/Vol]13 U/MWis75-52UbnlcizppMemorial Health System Marietta Memorial HospitalAST [Catalytic activity/Vol]25 U/A25-40RokygdoixMemorial Health System Marietta Memorial HospitalBilirubin [Mass/Vol]0.7 mg/dL0.2-1.0[facility] HospitalCalcium [Mass/Vol]9.0 mg/dL8.5-10.1FOhioHealth Nelsonville Health CenterChloride [Moles/Vol]101 mmol/L 98-107[facility] HospitalCO2 [Moles/Vol]34.5 mmol/LHigh21.0-32.0 [facility] HospitalCreatinine [Mass/Vol]1.68 mg/dLHigh0.70-1.30 [facility] HospitalGFR/1.73 sq M.predicted MDRD (S/P/Bld) [Vol rate/Area]49 mL/min/{1.73_m2}Low>=60 mL/min/1.73m 2FOhioHealth Nelsonville Health CenterGlucose [Mass/Vol]113 mg/uJEsuh80-639ZxaibzbqrMemorial Health System [facility] Hospital Magnesium [Mass/Vol]2.2 mg/dL1.8-2.4FOhioHealth Nelsonville Health CenterProtein [Mass/Vol]7.7 g/dL6.4-8.2FSouthern Ohio Medical Centerodium [Moles/Vol]143 mmol/R363-013BmaqfnuiaMemorial Health System Marietta Memorial HospitalUrea nitrogen [Mass/Vol]48.0 mg/dL High7.0-18.0[facility] HospitalUrea nitrogen/Creatinine [Mass ratio]28.6 mg/mgMemorial Health System Marietta Memorial HospitalLaboratory - Hematology and Cell countson 80-82-1196Ikcvibiz granulocytes/100 WBC (Bld)0.5 %0.0-0.5FOhioHealth Nelsonville Health CenterLeukocytes [#/volume] corrected for nucleated erythrocytes in Blood by Automated counon 61-85-3510ERD corrected for nucl RBC Auto (Bld) [#/Vol]Leukocytes [#/volume] corrected for nucleated erythrocytes in Blood by Automated coun4.0-11.0[facility] HospitalLymphocytes Auto (Bld) [#/Vol]on 47-33-2453Qqqxiekvlsu (Bld) [#/Vol]Lymphocytes [#/volume] in Blood by Automated countLow1.2-3.8[facility] Lymphocytes/100 WBC Auto (Bld)on 47-18-4952Koepwpwaoer/100 WBC (Bld) Lymphocytes/100 leukocytes in Blood by Automated hdptkKuo47.5-60.0Cherrington HospitalH Auto (RBC) [Entitic mass]on 48-55-4885AFK (RBC) [Entitic mass]MCH [Entitic mass] by Automated count25.9-34.0[facility] HospitalMCHC Auto (RBC) [Mass/Vol]on 42-25-0007EZJP (RBC) [Mass/Vol]MCHC [Mass/volume] by Automated count29.9-35.2FOhioHealth Nelsonville Health CenterMCV Auto (RBC) [Entitic vol]on 79-40-8639XRR (RBC) [Entitic vol]MCV [Entitic volume] by Automated riwdnMczt73.0-94.0[facility] HospitalMonocytes Auto (Bld) [#/Vol]on 40-45-5862Scgnzwhop (Bld) [#/Vol]Automated blood monocyte count High0.3-0.8[facility] HospitalMonocytes/100 WBC Auto (Bld)on 87-84-6246Ofrvfzfav/100 WBC (Bld)Automated monocyte %High1.7-12.0[facility] HospitalNeutrophils Auto (Bld) [#/Vol]on 94-63-8964Sjjippouzsm (Bld) [#/Vol]Neutrophils [#/volume] in Blood by Automated count1.4-6.5FOhioHealth Nelsonville Health CenterNeutrophils/100 WBC Auto (Bld)on 08-31-2024 Neutrophils/100 WBC (Bld)Automated neutrophil %43.0-75.0[facility] HospitalNo Panel Informationon 12-64-3954Mkxbqbnxihq # (Auto)0.0 10 3/uL 0.0-0.7FOhioHealth Nelsonville Health CenterImmature Granulocyte # (Auto)0.03 10 3/uL0.00-0.03[facility] HospitalPlatelet mean volume Auto (Bld) [Entitic vol]on 13-38-3247Kjnboqdq mean volume (Bld) [Entitic vol]Platelet mean volume [Entitic volume] in Blood by Automated count9.5-13.5FOhioHealth Nelsonville Health CenterPlatelets Auto (Bld) [#/Vol]on 81-25-7565Jkpjqnhix (Bld) [#/Vol] Platelets [#/volume] in Blood by Automated -401FoycvfqemMemorial Health System Marietta Memorial HospitalRBC Auto (Bld) [#/Vol]on 11-79-9372JEY (Bld) [#/Vol]Erythrocytes [#/volume] in Blood by Automated countLow4.70-6.10[facility] Hospitalerum or plasma albumin/globulin mass ratioon 02-86-4872Hyxfzwe/Globulin [Mass ratio]Serum or plasma albumin/globulin mass ratioCleveland Clinic Mentor Hospitalerum or plasma anion gap determinationon 31-15-4087Uqptx gap [Moles/Vol]Serum or plasma anion gap determinationMemorial Health System Marietta Memorial HospitalActivated partial thromboplastin time (aPTT) in platelet poor plasma by coagulation aon 99-87-5903iUDW Coag (PPP) [Time]Activated partial thromboplastin time (aPTT) in platelet poor plasma by coagulation a22.3-36.2FOhioHealth Nelsonville Health CenterBasophils Auto (Bld) [#/Vol]on 33-32-3116Qdofguvqx (Bld) [#/Vol] Automated basophil count0.0-0.1FOhioHealth Nelsonville Health CenterBasophils/100 WBC Auto (Bld)on 62-05-2679Czyjadyws/100 WBC (Bld)Automated basophil %0.2-2.0 [facility] HospitalEosinophils/100 WBC Auto (Bld)on 08-30-2024 Eosinophils/100 WBC (Bld)Automated eosinophil %Low0.9-7.0[facility] HospitalErythrocyte distribution width Auto (RBC) [Ratio]on 08-30-2024 Erythrocyte distribution width (RBC) [Ratio]Erythrocyte distribution width [Ratio] by Automated spawlBtqx77.0-15.0[facility] Hematocrit Auto (Bld) [Volume fraction]on 10-60-1195Wlpbbnosoz (Bld) [Volume fraction]Hematocrit [Volume Fraction] of Blood by Automated lnnchRuy09.0-54.0 [facility] HospitalHemoglobin [Mass/volume] in Bloodon 08-30-2024 Hemoglobin (Bld) [Mass/Vol]Hemoglobin [Mass/volume] in QfzoaJum07.0-18.0 [facility] HospitalINR in Platelet poor plasma by Coagulation assayon 85-92-4222RZA Coag (PPP) [Relative time]INR in Platelet poor plasma by Coagulation assayMemorial Health System Marietta Memorial HospitalComment on above:DESIRED INR:2.0-3.0 CONDITIONS NOT LISTED BELOW2.5-3.5 FOR PROSTHETIC HEART VALVE REPLACEMENT2.5-3.5 RECURRENT THROMBOSISLaboratory - Chemistry and Chemistry - challengeon 93-10-0647Kenmssmez Ql (U)NegativeNEGATIVEMemorial Health System Marietta Memorial HospitalGlucose (U) [Mass/Vol]NegativeNEGATIVEMemorial Health System [facility] Hospital Ketones Ql (U)NegativeNEGWilson Street HospitalpH (U)6.5 [pH] 5.0-9.0[facility] Hospitalpecific gravity (U) [Rel density] <=1.963Qlkdbxlw6.005-1.025[facility] HospitalUrobilinogen Qn (U) 0.2 {Guido'U}/dL0.2-1.0[facility] HospitalNatriuretic peptide B (Bld) [Mass/Vol]239.0 pg/mL<=900.0[facility] Centertory - Hematology and Cell countson 07-46-1361Yfpnqnsy granulocytes/100 WBC (Bld)0.5 % 0.0-0.5FOhioHealth Nelsonville Health CenterLaboratory - Microbiology and Antimicrobial susceptibilityon 96-24-0718XTFV-CoV-2 (COVID-19) RNA BRYN+probe Ql (Unsp spec)NegativeNEGATIVEMemorial Health System Marietta Memorial HospitalComment on above: This test has not [...] authorization is revoked sooner.Laboratory - Specimen informationon 87-60-5394Wucucrhxcn (U)CLEARCLEARFOhioHealth Nelsonville Health CenterColor (U)LT. YELLOWYELLOWMemorial Health System Marietta Memorial HospitalLaboratory - Urinalysison 28-50-7805Ybjjmsxwo esterase Test strip Ql (U)NegativeNEGATIVE [facility] HospitalMucus Ql (Urine sed)NONE SEENNONE SEENMemorial Health System Marietta Memorial HospitalNitrite Ql (U)NegativeNEGATIVEMemorial Health System Marietta Memorial HospitalProtein Ql (U)NegativeNEG/TRACEMemorial Health System [facility] Hospital Leukocytes [#/volume] corrected for nucleated erythrocytes in Blood by Automated counon 56-87-1456SNQ corrected for nucl RBC Auto (Bld) [#/Vol]Leukocytes [#/volume] corrected for nucleated erythrocytes in Blood by Automated coun 4.0-11.0[facility] HospitalLymphocytes Auto (Bld) [#/Vol]on 12-11-6440Qbifbuvliyo (Bld) [#/Vol]Lymphocytes [#/volume] in Blood by Automated count1.2-3.8[facility] HospitalLymphocytes/100 WBC Auto (Bld)on 49-82-6696Bvtoovpkbrf/100 WBC (Bld)Lymphocytes/100 leukocytes in Blood by Automated fuhmgKux78.5-60.0[facility] HospitalH Auto (RBC) [Entitic mass]on 23-36-4104CPE (RBC) [Entitic mass]MCH [Entitic mass] by Automated count25.9-34.0Cherrington HospitalHC Auto (RBC) [Mass/Vol]on 31-61-5062XEWI (RBC) [Mass/Vol]MCHC [Mass/volume] by Automated count29.9-35.2FOhioHealth Nelsonville Health CenterMCV Auto (RBC) [Entitic vol]on 35-53-1211YGW (RBC) [Entitic vol]MCV [Entitic volume] by Automated countHigh 80.0-94.0[facility] HospitalMonocytes Auto (Bld) [#/Vol]on 97-98-2838Phsklvmlg (Bld) [#/Vol]Automated blood monocyte countHigh0.3-0.8 [facility] HospitalMonocytes/100 WBC Auto (Bld)on 08-30-2024 Monocytes/100 WBC (Bld)Automated monocyte %1.7-12.0[facility] HospitalNeutrophils Auto (Bld) [#/Vol]on 53-97-4255Ijraejwfixr (Bld) [#/Vol] Neutrophils [#/volume] in Blood by Automated count1.4-6.5FOhioHealth Nelsonville Health CenterNeutrophils/100 WBC Auto (Bld)on 47-90-9217Sbwpcfrryxh/100 WBC (Bld)Automated neutrophil %43.0-75.0[facility] HospitalNo Panel Informationon 50-88-2399Rhdqz BacteriaNONE SEEN #/HPFNONE SEENMemorial Health System Marietta Memorial HospitalUrine Culture ReflexedNOMemorial Health System Marietta Memorial HospitalUrine Occult BloodNegativeNEGATIVEMemorial Health System Marietta Memorial HospitalUrine Other Casts NONE SEEN #/LPFNONE SEENMemorial Health System Marietta Memorial HospitalUrine Other Crystals None Seen #/HPFNone SeenMemorial Health System [facility] HospitalUrine RBC0-2 #/HPF0-2 [facility] HospitalUrine Squamous Epithelial CellsNONE SEEN #/LPF NONE/RAREMemorial Health System [facility] HospitalUrine WBCNONE SEEN #/HPFNONE SEEN [facility] HospitalBedside Influenza Type A AntigenNegative [facility] HospitalComment on above:Negative for Flu A protein antigen. Infection due to Flu Acannot be ruled out. Flu A antigen in thesample may bebelow the detection limit of the test.Bedside Influenza Type B Antigen NegativeMemorial Health System [facility]etta Memorial HospitalComment on above:Negative for Flu B protein antigen. Infection due to Flu Bcannot be ruled out. Flu B antigen in the sample may bebelow the detection limit of the test.C-Reactive Protein, Quantitative4.85 mg/dLHigh<=0.50[facility] HospitalEosinophils # (Auto)0.0 10 3/uL0.0-0.7FOhioHealth Nelsonville Health CenterImmature Granulocyte # (Auto)0.04 10 3/uLHigh0.00-0.03[facility] HospitalTroponin I High Lodusranudh54.0 pg/mL4.0-76.1FOhioHealth Nelsonville Health CenterComment on above: CUT-OFF POINTS HAVE BEEN ESTABLISHED [...] volume [Entitic volume] in Blood by Automated count9.5-13.5FOhioHealth Nelsonville Health CenterPlatelets Auto (Bld) [#/Vol]on 01-24-9663Gkzitubey (Bld) [#/Vol]Platelets [#/volume] in Blood by Automated ruzyp884-125KnqtutuhnMemorial Health System Marietta Memorial HospitalProthrombin time (PT) on 83-68-2288GI Coag (PPP) [Time]Prothrombin time (PT)High9.0-11.6FOhioHealth Nelsonville Health CenterRBC Auto (Bld) [#/Vol]on 09-37-4065QCB (Bld) [#/Vol] Erythrocytes [#/volume] in Blood by Automated countLow4.70-6.10[facility] HospitalComprehensive metabolic 2000 panelOrdered By: Solange Delgado on 05-18-3739Fckryxd [Mass/Vol]4 g/dL3.9 - 4.9 g/dLCleveland ClinicALP [Catalytic [...] mmol/L [facility] ClinicCreatinine [Mass/Vol]1.66 mg/dLHigh0.73 - 1.22 mg/dLCleveland ClinicGFR/1.73 sq M.predicted among non-blacks MDRD (S/P/Bld) [...] eGFRmay not accurately reflect actual GFR.Glucose [Mass/Vol]134 mg/lOGmeb51 - 99 mg/dL [facility] on above:The English Diabetes Association (ADA) provides guidance for cutoff [...] Standards of Medical Care in Diabetes 2016, English Diabetes Association. Diabetes Care. 2016.39(Suppl 1). Interpretation and review of laboratory resultsAbnormalCleveland ClinicPotassium [Moles/Vol]2.7 mmol/LLow3.7 - 5.1 mmol/LCshelby memorial hospital ClinicProtein [Mass/Vol]7.4 g/dL6.3 - 8.0 g/dLGreen Cross Hospitalodium [Moles/Vol]136 mmol/L136 - 144 mmol/L [facility] Medical CenterUrea nitrogen [Mass/Vol]40 mg/dLHigh9 - 24 mg/dLOhiohealth Doctors HospitalComprehensive metabolic 2000 panelon 99-22-0495Owdckxq [Mass/Vol]4.0 g/dLNormal3.9-4.9[facility] on above:Order Comment: Specimen Type: BLOOD SPECIMENOrdering Facility: [facility] Address:[address] [place], [place] [address]Ohjxwxhvv By: #### 58609- 9, 91366-7 ####[facility] LABCLIA [id number] [place], [place] [address]IPF [Catalytic activity/Vol]126 U/ZPywb61-125 [facility] on above:Order Comment: Specimen Type: BLOOD SPECIMENOrdering Facility: [facility] Address:[address] [place], [place] [address]Ulrnbekbr By: #### 10026-1, 59388-8 ####[facility] LABCLIA [id number] [place], [place] [address]GQH [Catalytic activity/Vol]10 U/XFiyewc04-36RtxgeiygpMartin Memorial Hospital on above:Order Comment: Specimen Type: BLOOD SPECIMENOrdering Facility: [facility] Address:[address] [place], [place] [address]Performed By: #### 97092-3, 76786-2 ####[facility] LABCLIA [id number] [place], [place] [address]Ikmpf gap [Moles/Vol]10 mmol/LNormal8-15 [facility] on above:Order Comment: Specimen Type: BLOOD SPECIMENOrdering Facility: [facility] Address:[address] [place], [place] [address]Performed By: #### 95900-4, 46664-8 ####[facility] LABCLIA [id number] [place], [place] [address]DUI [Catalytic activity/Vol]22 U/UPydege15-88VdhrstgvpMartin Memorial Hospital on above:Order Comment: Specimen Type: BLOOD SPECIMENOrdering Facility: [facility] Address:[address] [place], [place] [address]Performed By: #### 32212-1, 90932-7 ####[facility] LABCLIA [id number] [place], [place] [address]Qfoanjzvw [Mass/Vol]0.6 mg/dLNormal0.2-1.3 [facility] on above:Order Comment: Specimen Type: BLOOD SPECIMENOrdering Facility: [facility] Address:[address] [place], [place] [address]Performed By: #### 96994-8, 78341-3 ####[facility] LABCLIA [id number] [place], [place] [address]Imbqmfl [Mass/Vol]8.9 mg/dLNormal8.5-10.2[facility] on above: Order Comment: Specimen Type: BLOOD SPECIMENOrdering Facility: [facility] Address:[address] [place], [place] [address]Performed By: #### 33512- 9, 77770-7 ####[facility] LABCLIA [id number] [place], [place] [address]Fcwwfvgs [Moles/Vol]93 mmol/MFmb03-077QnhvwnsheMartin Memorial Hospital on above:Order Comment: Specimen Type: BLOOD SPECIMENOrdering Facility: [facility] Address:[address] [place], [place] [address]Performed By: #### 29455-3, 71096-8 ####[facility] LABCLIA [id number] [place], [place] [address]CI0 [Moles/Vol]33 mmol/SJejx90-24XlhaqoipzMartin Memorial Hospital on above:Order Comment: Specimen Type: BLOOD SPECIMENOrdering Facility: [facility] Address:[address] [place], [place] [address]Performed By: #### 00455- 9, 80988-2 ####[facility] LABCLIA [id number] [place], [place] [address]Cawavwhavo [Mass/Vol]1.66 mg/dLHigh0.73-1.22 [facility] on above:Order Comment: Specimen Type: BLOOD SPECIMENOrdering Facility: [facility] Address:[address] [place], [place] [address]Performed By: #### 14893-2, 37901-3 ####[facility] LABIA [id number] [place] [address] Creatinine and Glomerular filtration rate.predicted panel (S/P/Bld)43 mL/min/1.73m???Low>=60[facility] on above:Order Comment: Specimen Type: BLOOD SPECIMENOrdering Facility: [facility] Address:[address] [place] [address]Gdpyxl Comment: Estimated Glomerular Filtration Rate (eGFR) is calculated using the 2020 CKD-EPI creatinine equation. This equation utilizes serum creatinine, sex, and age as parameters. The creatinine assay has traceable calibration to isotope dilution-mass spectrometry. Refer to KDIGO guidelines for clinical interpretation. In patients with unstable renal function, e.g. those with acute kidney injury, the eGFR may not accurately reflect actual GFR.Performed By: #### 52143-5, 50150-9 ####[facility] LABCLIA [id number] [place], [place] [address]Hrtmsvw [Mass/Vol]134 mg/dIKskp38-38EmuovpihrMartin Memorial Hospital on above:Order Comment: Specimen Type: BLOOD SPECIMENOrdering Facility: [facility] Address:[address] [place], [place] [address]Result Comment: The English Diabetes Association (ADA) provides guidance for cutoff [...] Standards of Medical Care in Diabetes 2016, English Diabetes Association. Diabetes Care. 2016.39(Suppl 1).Performed By: #### 42679- 9, 93135-8 ####[facility] LABCLIA [id number] [place], [place] [address]Suedimihq [Moles/Vol]2.7 mmol/LLow3.7-5.1[facility] on above:Order Comment: Specimen Type: BLOOD SPECIMENOrdering Facility: [facility] Address:[address] [place], [place] [address]Performed By: #### 71986-5, 01416-6 ####[facility] LABCLIA [id number] [place], [place] [address]Lkxezmm [Mass/Vol]7.4 g/dLNormal6.3-8.0[facility] on above:Order Comment: Specimen Type: BLOOD SPECIMENOrdering Facility: [facility] Address:[address] [place], [place] [address]Performed By: #### 52340- 9, 75778-0 ####[facility] LABCLIA [id number] [place], [place] [address]Jwxdbx [Moles/Vol]136 mmol/BLvqehg118-219YfydpmbhmMartin Memorial Hospital on above:Order Comment: Specimen Type: BLOOD SPECIMENOrdering Facility: [facility] Address:[address] [place], [place] [address]Performed By: #### 32280-6, 32702-4 ####[facility] LABCLIA [id number] [place], [place] [address]Icpr nitrogen [Mass/Vol]40 mg/dLHigh9-24[facility] on above: Order Comment: Specimen Type: BLOOD SPECIMENOrdering Facility: [facility] Address:[address] [place], [place] [address]Performed By: #### 73986- 9, 63150-0 ####[facility] LABCLIA [id number] [place], [place] [address]Nwhiizhcit - Chemistry and Chemistry - challengeon 77-27-8867Ixakidx [Mass/Vol]4.0 g/dL3.9-4.9[facility] HospitalALP [Catalytic activity/Vol]126 U/BPzuh19-630PaklxjfniMemorial Health System [facility] HospitalALT [Catalytic activity/Vol]10 U/U25-34XrofmcztdMemorial Health System [facility] HospitalAST [Catalytic activity/Vol]22 U/W20-94EjnntnenzMemorial Health System [facility] HospitalBilirubin [Mass/Vol]0.6 mg/dL0.2-1.3FOhioHealth Nelsonville Health CenterCalcium [Mass/Vol]8.9 mg/dL8.5-10.2FOhioHealth Nelsonville Health CenterChloride [Moles/Vol]93 mmol/LLow 98-107[facility] HospitalCO2 [Moles/Vol]33 mmol/BYjko51-06 [facility] HospitalCreatinine [Mass/Vol]1.66 mg/dLHigh0.73-1.22 [facility] HospitalGlucose [Mass/Vol]134 mg/iUOsso79-26AbznoogrtMemorial Health System [facility] HospitalComment on above:The English Diabetes Association (ADA) provides guidance for cutoff [...] diabetes.Reference: Standardsof Medical Care in Diabetes 2016, English Diabetes Association. Diabetes Care. 2016.39(Suppl 1).Magnesium [Mass/Vol]2.4 mg/dLHigh 1.7-2.3FOhioHealth Nelsonville Health CenterPotassium [Moles/Vol]2.7 mmol/LLow 3.7-5.1FSouthern Ohio Medical Centerodium [Moles/Vol]136 mmol/K986-101 [facility] HospitalTSH Qn2.030 m[IU]/L0.270-4.200[facility] HospitalUrea nitrogen [Mass/Vol]40 mg/dLHigh9-24[facility] HospitalMAGNESIUMon 03-60-9347Zirpsqlec [Mass/Vol]2.4 mg/dLHigh 1.7 - 2.3 mg/dLTrinity Health System Twin City Medical CenterMagnesium SerPl-mCncon 60-71-1923Qopnievkl [Mass/Vol]2.4 mg/dLHigh1.7-2.3CUniversity Hospitals Cleveland Medical CenterComment on above:Order Comment: Specimen Type: BLOOD SPECIMENOrdering Facility: [facility] Address:[address] [place], [place] [address]Performed By: #### 14954- 9, 04552-5 ####[facility] LABCLIA [id number] [place], [place] [address]Efceyvoqz [Mass/Vol]on 73-74-9820Jgejynzbxnzamy and review of laboratory resultsAbnormalCToledo Hospital Panel Informationon 24-11-1767Ssxsamcxu GFR (CKD-EPI)43 mL/min/1.73m???Low>=60 [facility] HospitalComment on above:Estimated Glomerular Filtration Rate [...] actual GFR.Protein [Mass/volume] in Serum or Plasmaon 91-97-2077Fxzokks [Mass/Vol]Protein [Mass/volume] in Serum or Plasma6.3-8.0 [facility] Mentor Hospitalerum or plasma anion gap determinationon 53-65-5114Zgqvv gap [Moles/Vol]Serum or plasma anion gap determination8-15 [facility] HospitalTS SerPl-aCncon 42-09-4828ZGZ Qn2.030 m[IU]/L Normal0.270-4.200[facility] HospitalComsurgeons choice medical center on above:Order Comment: Specimen Type: BLOOD SPECIMENOrdering Facility: [facility] Address:[address] [place], [place] [address]Performed By: #### 3016-3 ####[facility] LABCLIA [id number] [place] [address] [facility] Panel Informationon 08-27-2024 [facility] HealthcareComprehensive metabolic 2000 panelon 01-10-0251Zwfftrt [Mass/Vol] 4.1 g/dLNormal3.9-4.9CUniversity Hospitals Cleveland Medical CenterComsurgeons choice medical center on above:Order Comment: Specimen Type: BLOOD SPECIMENOrdering Facility: [facility] Address:[address] [place], [place] [address]Performed By: #### 00233-8, 3016-3, 00422-4 ####[facility] LABCLIA [id number] [address] [address] [place] AMERICAALP [Catalytic activity/Vol]137 U/PBiuz07-891BbdmirhojMartin Memorial Hospital on above:Order Comment: Specimen Type: BLOOD SPECIMENOrdering Facility: [facility] Address:[address] [place], [place] [address]Performed By: #### 95665-4, 301-3, 30902-6 ####[facility] LABCLIA [id number] [address] [address] [place] AMERICAALT [Catalytic activity/Vol]17 U/XDdimyk64-57PsgbudzeqMartin Memorial Hospital on above:Order Comment: Specimen Type: BLOOD SPECIMENOrdering Facility: [facility] Address:[address] [place], [place] [address]Performed By: #### 70715-1, 3015-3, 34737-9 ####[facility] LABCLIA [id number] [address] [place] AMERICAAnion gap [Moles/Vol]13 mmol/L Normal8-15[facility] on above:Order Comment: Specimen Type: BLOOD SPECIMENOrdering Facility: [facility] Address:[address] [place], [place] [address]Performed By: #### 63441-9, 3015-3, 74010-1 ####[facility] LABCLIA [id number] [address] [address] [place] AMERICAAST [Catalytic activity/Vol]32 U/NMwaryy22-69FknbjtngjMartin Memorial Hospital on above:Order Comment: Specimen Type: BLOOD SPECIMENOrdering Facility: [facility] Address:[address] [place], [place] [address]Performed By: #### 42347-5, 3015-3, 47939-8 ####[facility] LABCLIA [id number] [address] [address] [place] AMERICABilirubin [Mass/Vol]0.7 mg/dL Normal0.2-1.3[facility] on above:Order Comment: Specimen Type: BLOOD SPECIMENOrdering Facility: [facility] Address:[address] [place], [place] [address]Performed By: #### 95695-3, 3016-3, 86458-5 ####[facility] LABCLIA [id number] [address] [place] AMERICACalcium [Mass/Vol]9.5 mg/dLNormal 8.5-10.2ClevelTrinity Health System West Campus on above:Order Comment: Specimen Type: BLOOD SPECIMENOrdering Facility: [facility] Address:[address] [place], [place] [address]Performed By: #### 78639-5, 3016-3, 17990-6 ####[facility] LABCLIA [id number] VILLE [address] [place] AMERICAChloride [Moles/Vol]93 mmol/LLow 98-107[facility] on above:Order Comment: Specimen Type: BLOOD SPECIMENOrdering Facility: [facility] Address:[address] [place], [place] [address]Performed By: #### 10173-6, 3016-3, 14631-4 ####[facility] LABCLIA [id number] [address] [place] AMERICACO2 [Moles/Vol]31 mmol/KGrvz31-81 [facility] on above:Order Comment: Specimen Type: BLOOD SPECIMENOrdering Facility: [facility] Address:[address] [place], [place] [address]Performed By: #### 82781-9, 3016-3, 22911-4 ####[facility] LABCLIA [id number] [address] [place] AMERICACreatinine [Mass/Vol]1.61 mg/dLHigh0.73-1.22 [facility] on above:Order Comment: Specimen Type: BLOOD SPECIMENOrdering Facility: [facility] Address:[address] [place], [place] [address]Performed By: #### 51475-6, 3016-3, 41753-8 ####[facility] LABIA [id number] VILLE [address] [place] AMERICACreatinine and Glomerular filtration rate.predicted panel (S/P/Bld)45 mL/min/1.73m???Low>=60[facility] on above:Order Comment: Specimen Type: BLOOD SPECIMENOrdering Facility: [facility] Address:[address] [place], [place] [address]Result Comment: Estimated Glomerular Filtration Rate (eGFR) is [...] accurately reflect actual GFR. Performed By: #### 22781-4, 6-3, 29561-5 ####[facility] LABIA [id number] [address] [place] AMERICAGlucose [Mass/Vol]99 mg/lNEzobbs35-40JgwjutyycMartin Memorial Hospital on above:Order Comment: Specimen Type: BLOOD SPECIMENOrdering Facility: [facility] Address:[address] [place] [address]Duqosx Comment: The English Diabetes Association (ADA) provides guidance for cutoff [...] Standards of Medical Care in Diabetes 2016, English Diabetes Association. Diabetes Care. 2016.39(Suppl 1).Performed By: #### 07497-1, 3015-3, ####[facility] LABCLIA [id number] VILLE [address] [place] AMERICAPotassium [Moles/Vol]2.9 mmol/LLow3.7-5.1[facility] on above:Order Comment: Specimen Type: BLOOD SPECIMENOrdering Facility: [facility] Address:[address] [place], [place] [address]Performed By: #### 48103-4, 3, ####[facility] LABCLIA [id number] [address] [place] AMERICAProtein [Mass/Vol]8.0 g/dLNormal6.3-8.0[facility] on above:Order Comment: Specimen Type: BLOOD SPECIMENOrdering Facility: [facility] Address:[address] [place], [place] [address]Performed By: #### 12021-6, 3, ####[facility] LABIA [id number] VILLE [address] [place] OF AMERICASodium [Moles/Vol]137 mmol/XWvklkw348-385NzubrweumMartin Memorial Hospital on above:Order Comment: Specimen Type: BLOOD SPECIMENOrdering Facility: [facility] Address:[address] [place], [place] [address]Performed By: #### 69811-4, 3015-08, ####[facility] LABIA [id number] [address] [place] AMERICAUrea nitrogen [Mass/Vol]30 mg/dLHigh9-24[facility] Clinic ClevelandComment on above:Order Comment: Specimen Type: BLOOD SPECIMENOrdering Facility: [facility] Address:[facility] [place], [place] [address]Performed By: #### 29393-4, 3016-3, 03560-0 ####[facility] LABCLIA [id number] [place] [address] [place] AMERICALaboratory - Chemistry and Chemistry - challengeon 65-74-8758Moiqalw [Mass/Vol]4.1 g/dL3.9-4.9[facility] HospitalALP [Catalytic activity/Vol]137 U/PKxbs76-499DyeskpplcMemorial Health System [facility] HospitalALT [Catalytic activity/Vol]17 U/E21-97EienjxiftMemorial Health System [facility] HospitalAST [Catalytic activity/Vol]32 U/Q77-51AoryvixbtMemorial Health System [facility] Memorial HospitalBilirubin [Mass/Vol]0.7 mg/dL0.2-1.3FOhioHealth Nelsonville Health CenterCalcium [Mass/Vol]9.5 mg/dL8.5-10.2FOhioHealth Nelsonville Health CenterChloride [Moles/Vol]93 mmol/LLow 98-107[facility] HospitalCO2 [Moles/Vol]31 mmol/PWcyj53-13 [facility] HospitalCreatinine [Mass/Vol]1.61 mg/dLHigh0.73-1.22 [facility] HospitalGlucose [Mass/Vol]99 mg/qP60-92MqjmokqxgMemorial Health System [facility] Memorial HospitalComment on above:The English Diabetes Association (ADA) provides guidance for cutoff [...] diabetes.Reference: Standardsof Medical Care in Diabetes 2016, English Diabetes Association. Diabetes Care. 2016.39(Suppl 1).Magnesium [Mass/Vol]2.4 mg/dLHigh 1.7-2.3FOhioHealth Nelsonville Health CenterPotassium [Moles/Vol]2.9 mmol/LLow 3.7-5.1FSouthern Ohio Medical Centerodium [Moles/Vol]137 mmol/B743-794 [facility] HospitalTSH Qn2.980 m[IU]/L0.270-4.200[facility] HospitalUrea nitrogen [Mass/Vol]30 mg/dLHigh9-24[facility] HospitalMagnesium SerPl-mCncon 81-78-0720Pxgtdgzfa [Mass/Vol]2.4 mg/dLHigh1.7-2.3CUniversity Hospitals Cleveland Medical CenterComsurgeons [facility] medical center on above:Order Comment: Specimen Type: BLOOD SPECIMENOrdering Facility: [facility] Address:[address] [place], [place] [address]Performed By: #### 57565-8, 3016-3, 02784-2 ####[facility] LABCLIA [id number] [address]To Panel Informationon 29-22-4574Ngfnalowr GFR (CKD-EPI)45 mL/min/1.73m???Low>=60[facility] HospitalComsurgeons choice medical center on above:Estimated Glomerular Filtration Rate (eGFR) [...] GFR. Protein [Mass/volume] in Serum or Plasmaon 68-72-4309Neoduet [Mass/Vol]Protein [Mass/volume] in Serum or Plasma6.3-8.0[facility] Clinic Mentor Hospitalerum or plasma anion gap determinationon 54-30-8298Bdkgt gap [Moles/Vol]Serum or plasma anion gap determination8-15[facility] HospitalTS SerPl-aCncon 29-91-0355OCZ Qn2.980 m[IU]/LNormal0.270-4.200[facility] on above:Order Comment: Specimen Type: BLOOD SPECIMENOrdering Facility: [facility] Address:[address] [place] [address] Performed By: #### 52676-8, 3016-3, 31522-2 ####[facility] LABCLIA [id number] [place] [address] [place] AMERICACNPNon 26-22-9014GLCEBfbxxdEahoodxku Clinic ClevelandCNOVon 08-18-2024 CNOVNormalCUniversity Hospitals Cleveland Medical CenterOptical coherence tomography study reporton 48-21-2766IOGYFort Memorial HospitalNo Panel Informationon 08-13-2024 IMPRESSION: Small, layering right-sided pleural effusion, stable in size from prior study of 07/20/2024. Manager Clinical Services: ALONSO Transcribe Date/Time: Aug 13 2024 10:27A Dictated by : NOLBERTO SMITH MD This examination was interpreted and the report reviewed and electronically signed by: NOLBERTO SMITH MD on Aug 13 2024 10:32AM [facility] DIVISION OF RADIOLOGYRadiology Study observation (narrative)[facility] Panel InformationOrdered By: Ccf Provider on 44-32-3083Hlgwbyokg ClinicXR CHEST 1V DECUBITUS RTon 74-74-6776FA CHEST 1V DECUBITUS RTNormBethesda North HospitalXR CHEST 2V FRONTAL/LATon 90-78-6722VL CHEST 2V FRONTAL/LATNormal [facility] HospitalXR Chest AP right lateral-decubituson 08-13-2024* * [...] spine is again noted. DIVISION OF RADIOLOGYProvider, [facility] - 08/13/2024 * * *Final Report* * [...] in size from prior study of 07/20/2024. Manager Clinical Services: PSCB Transcribe Date/Time: Aug 13 2024 10:27A Dictated by : NOLBERTO SMITH MD This examination was interpreted and the report reviewed and electronically signed by: NOLBERTO SMITH MD on Aug 13 2024 10:32AM [facility] CenterXR Chest PA and Lateralon 08-13-2024* [...] spine is again noted. DIVISION OF RADIOLOGYProvider, [facility] - 08/13/2024 * * *Final Report* * [...] in size from prior study of 07/20/2024. Manager Clinical Services: ALONSO Transcribe Date/Time: Feb 27 2025 10:27A Dictated by : NOLBERTO SMITH MD This examination was interpreted and the report reviewed and electronically signed by: NOLBERTO SMITH MD on Aug 13 2024 10:32AM EST [facility] Medical CenterCNPNon 02-93-4850RWGTVirthaTdisshiii Clinic ClevelandOptical coherence tomography study reporton 57-52-6277Uzecxemrf Study observation (narrative)[facility]OMS HealthcareCNPNon 26-64-7793VMTSCpikrtMxjkbgfze Clinic Cleveland CNPNon 21-38-2900QHOJLqdcciRhcdqoenu Clinic ClevelandCNPNon 53-34-1914VLQWWdgioc [facility]25([place])D3 SerPl-mCncon 141019-ujhghrbkoqovga D3 [Mass/Vol]49.2 ng/eHPkcxxm13.0-80.0[facility] on above: Order Comment: Specimen Type: BLOOD SPECIMENOrdering Facility: [facility] Address:[address] [place], [place] [address]Result Comment: Classification of 25 [place] Vitamin D status:Deficiency/Insufficiency: < or = 30 ng/ml.Sufficiency/Optimal Levels: 31-80 ng/mLToxicity: > 100 ng/mL.Test performed by chemiluminescent immunoassay.Performed By: #### 1989-3 ####[facility] LABCLIA [id number] [address]ETBalourdes hospital metabolic 2000 panelon 88-91-4890Bwemd gap [Moles/Vol]7 mmol/LLow8-15[facility] on above:Order Comment: Specimen Type: BLOOD SPECIMENOrdering Facility: [facility] Address:[address] [place] [address] Performed By: #### 52100-2, 76107-9 ####[facility] LABCLIA [id number] [place], [place] [address]Cgemqhw [Mass/Vol]8.9 mg/dLNormal8.5-10.2[facility] on above:Order Comment: Specimen Type: BLOOD SPECIMENOrdering Facility: [facility] Address:[address] [place], [place] [address]Performed By: #### 74698-6, 28844-5 ####[facility] LABCLIA [id number] [place], [place] [address]Xxkuhrbb [Moles/Vol]105 mmol/MGbnlfc61-764CdgbstqlvMartin Memorial Hospital on above:Order Comment: Specimen Type: BLOOD SPECIMENOrdering Facility: [facility] Address:[address] [place], [place] [address]Performed By: #### 69412-2, 97575-9 ####[facility] LABCLIA [id number] [place], [place] [address]UQ2 [Moles/Vol]27 mmol/ROygabn45-39LavdqnojmMartin Memorial Hospital on above:Order Comment: Specimen Type: BLOOD SPECIMENOrdering Facility: [facility] Address:[address] [place], [place] [address]Performed By: #### 36770- 9, 90885-6 ####[facility] LABCLIA [id number] [place], [place] [address]Rfowiymcoh [Mass/Vol]1.25 mg/dLHigh0.73-1.22 [facility] on above:Order Comment: Specimen Type: BLOOD SPECIMENOrdering Facility: [facility] Address:[address] [place], [place] [address]Performed By: #### 24011-2, 27570-5 ####[facility] LABCLIA [id number] [place] [address] Creatinine and Glomerular filtration rate.predicted panel (S/P/Bld)61 mL/min/1.73m???Normal>=60[facility] on above:Order Comment: Specimen Type: BLOOD SPECIMENOrdering Facility: [facility] Address:[address] [place], [place] [address]Result Comment: Estimated Glomerular Filtration Rate (eGFR) is [...] not accurately reflect actual GFR.Performed By: #### 92917-9, 08162-9 ####[facility] LABCLIA [id number] [place], [place] [address]Lgwoudn [Mass/Vol]141 mg/eQEfch53-00ZprnhxqaaMartin Memorial Hospital on above:Order Comment: Specimen Type: BLOOD SPECIMENOrdering Facility: [facility] Address:[address] [place] [address]Qftwpa Comment: The English Diabetes Association (ADA) provides guidance for cutoff [...] Standards of Medical Care in Diabetes 2016, English Diabetes Association. Diabetes Care. 2016.39(Suppl 1).Performed By: #### 68306- 9, 93089-9 ####[facility] LABCLIA [id number] [place], [place] [address]Oshhjygdc [Moles/Vol]4.0 mmol/LNormal3.7-5.1 [facility] on above:Order Comment: Specimen Type: BLOOD SPECIMENOrdering Facility: [facility] Address:[address] [place] [address]Uyjumayau By: #### 78309-1, 32884-3 ####[facility] LABCLIA [id number] [place], [place] [address]Luoofi [Moles/Vol]139 mmol/RNyrnch827-385ZswxelrbbMartin Memorial Hospital on above: Order Comment: Specimen Type: BLOOD SPECIMENOrdering Facility: [facility] Address:[address] [place] [address]Nalzmhwma By: #### 51402- 9, 88568-9 ####[facility] LABCLIA [id number] [place], [place] [address]Ofqb nitrogen [Mass/Vol]27 mg/dLHigh9-24[facility] ClevelandComment on above:Order Comment: Specimen Type: BLOOD SPECIMENOrdering Facility: [facility] Address:[address] [place] [address]Nrlsnivzk By: #### 86332-9, 19667-1 ####[facility] LABCLIA [id number] [place], [place] [address]HSV panel Auto (Bld)on 04-46-3010Dctihpytdeq distribution width (RBC) [Ratio]16.2 % High11.5 - 15.0 %[facility] Medical CenterHematocrit (Bld) [Volume fraction]34.6 %Low39.0 - 51.0 %[facility] Medical CenterHemoglobin (Bld) [Mass/Vol]11.4 g/dLLow13.0 - 17.0 g/dL [facility] Medical CenterInterpretation and review of laboratory resultsAbnormalCSelect Medical TriHealth Rehabilitation HospitalH (RBC) [Entitic mass]31.3 pg26.0 - 34.0 pgCSelect Medical TriHealth Rehabilitation HospitalHC (RBC) [Mass/Vol]32.9 g/dL30.5 - 36.0 g/dLKettering Health DaytonV (RBC) [Entitic vol]95.1 fL80.0 - 100.0 [facility] HospitalNucleated RBC (Bld) [#/Vol]NINCleveland Clinic Lutheran Hospital Platelet mean volume (Bld) [Entitic vol]10.1 fL9.0 - 12.7 [facility] Platelets (Bld) [#/Vol]222 10*3/uLTrinity Health System Twin City Medical CenterRBC (Bld) [#/Vol]3.64 10*6/uL Low4.20 - 6.00 m/uLTrinity Health System Twin City Medical CenterWBC (Bld) [#/Vol]7.62 10*3/uLOhiohealth Doctors HospitalErythrocyte distribution width (RBC) [Ratio]16.2 %High11.5-15.0 [facility] on above:Order Comment: Specimen Type: BLOOD SPECIMENOrdering Facility: [facility] Address:[address] [place], [place] [address]Performed By: #### 57388-2 ####[facility] LABCLIA [id number] [place], [place] [address]Eijstynqym (Bld) [Volume fraction]34.6 %Low39.0-51.0[facility] on above: Order Comment: Specimen Type: BLOOD SPECIMENOrdering Facility: [facility] Address:[address] [place], [place] [address]Performed By: #### 89551- 2 ####[facility] LABCLIA [id number] [place], [place] [address]Rqvtbprzss (Bld) [Mass/Vol]11.4 g/dLLow13.0-17.0[facility] on above:Order Comment: Specimen Type: BLOOD SPECIMENOrdering Facility: [facility] Address:[address] [place], [place] [address]Performed By: #### 28652-3 ####[facility] LABCLIA [id number] [place], [place] [address]BTV (RBC) [Entitic mass]31.3 waXqsoqv86.0-34.0[facility] on above: Order Comment: Specimen Type: BLOOD SPECIMENOrdering Facility: [facility] Address:[address] [place], [place] [address]Performed By: #### 54544- 2 ####[facility] LABCLIA [id number] [place], [place] [address]CTTZ (RBC) [Mass/Vol]32.9 g/mGXosmqs58.5-36.0[facility] on above:Order Comment: Specimen Type: BLOOD SPECIMENOrdering Facility: [facility] Address:[address] [place], [place] [address]Performed By: #### 31593-6 ####[facility] LABCLIA [id number] [place], [place] [address]UCQ (RBC) [Entitic vol]95.1 lPLgkgcq57.0-100.0[facility] on above: Order Comment: Specimen Type: BLOOD SPECIMENOrdering Facility: [facility] Address:[address] [place], [place] [address]Performed By: #### 58790- 2 ####[facility] LABCLIA [id number] [place], [place] [address]Znjntroga RBC (Bld) [#/Vol]10*3/uLNormal<0.01[facility] on above:Order Comment: Specimen Type: BLOOD SPECIMENOrdering Facility: [facility] Address:[address] [place], [place] [address]Performed By: #### 93970-4 ####[facility] LABIA [id number] [place], [place] [address]Clojiyzy mean volume (Bld) [Entitic vol]10.1 fLNormal9.0-12.7[facility] on above:Order Comment: Specimen Type: BLOOD SPECIMENOrdering Facility: [facility] Address:[address] [place] [address] Performed By: #### 42168-9 ####[facility] LABCLIA [id number] [place], [place] [address]Uhkeogmhi (Bld) [#/Vol]222 10*3/jFAiwpdq298-703JaephjoegMartin Memorial Hospital on above:Order Comment: Specimen Type: BLOOD SPECIMENOrdering Facility: [facility] Address:[address] [place], [place] [address]Performed By: #### 89319-8 ####[facility] LABCLIA [id number] [place], [place] [address]YWF (Bld) [#/Vol]3.64 10*6/uLLow4.20-6.00[facility] on above:Order Comment: Specimen Type: BLOOD SPECIMENOrdering Facility: [facility] Address:[address] [place], [place] [address]Performed By: #### 89318-6 ####[facility] LABCLIA [id number] [place], [place] [address]LNZ (Bld) [#/Vol]7.62 10*3/uL Normal3.70-11.00[facility] on above:Order Comment: Specimen Type: BLOOD SPECIMENOrdering Facility: [facility] Address:[address] [place], [place] [address]Performed By: #### 55123-9 ####[facility] LABCLIA [id number] [place], [place] [address]Ztarbi SerPl-mCncon 8466Dfbzecby [Mass/Vol]11.1 ug/dLNormal4.8-19.5[facility] on above:Order Comment: Specimen Type: BLOOD SPECIMENOrdering Facility: [facility] Address:[address] [place], [place] [address]Result Comment: Provided reference range is from 6-10 AM sample collection time.Cortisol Reference Range: 6-10 AM = 4.8-19.5 ug/dL, 4-8 PM = 2.5-11.9 ug/dLPerformed By: #### 2143-6, 2132-9 ####[facility] LABCLIA [id number] [place] [address] [place] OF AMERICAErythrocyte distribution width Auto (RBC) [Ratio]on 36-99-4360Qcgjstdfexx distribution width (RBC) [Ratio] Erythrocyte distribution width [Ratio] by Automated iftdmSygk26.5-15.0[facility] HospitalHematocrit Auto (Bld) [Volume fraction]on 07-29-2024 Hematocrit (Bld) [Volume fraction]Hematocrit [Volume Fraction] of Blood by Automated vovcsGqv57.0-51.0[facility] HospitalHemoglobin [Mass/volume] in Bloodon 62-55-5240Abeqbbwqwx (Bld) [Mass/Vol]Hemoglobin [Mass/volume] in GnmzsKgb43.0-17.0[facility] HospitalLaboratory - Chemistry and Chemistry - challengeon 36-41-1291Rnvtuyj [Mass/Vol]8.9 mg/dL 8.5-10.2FOhioHealth Nelsonville Health CenterChloride [Moles/Vol]105 mmol/L98-107 [facility] HospitalCO2 [Moles/Vol]27 mmol/D88-55AepkhgtteMemorial Health System Marietta Memorial HospitalCobalamin (Vitamin B12) [Mass/Vol]729 pg/rN416-7015LdralckgsMemorial Health System Marietta Memorial HospitalCreatinine [Mass/Vol]1.25 mg/dLHigh0.73-1.22[facility] HospitalGlucose [Mass/Vol]141 mg/xYSede77-90MlififjvkMemorial Health System Marietta Memorial HospitalComment on above:The English Diabetes Association (ADA) provides guidance for cutoff [...] diabetes.Reference: Standardsof Medical Care in Diabetes 2016, English Diabetes Association. Diabetes Care. 2016.39(Suppl 1).Magnesium [Mass/Vol]2.0 mg/dL 1.7-2.3FOhioHealth Nelsonville Health CenterPotassium [Moles/Vol]4.0 mmol/L3.7-5.1 [facility] Hospitalodium [Moles/Vol]139 mmol/W486-909GinktgqxjMemorial Health System Marietta Memorial HospitalUrea nitrogen [Mass/Vol]27 mg/dLHigh9-24[facility] HospitalLeukocytes [#/volume] corrected for nucleated erythrocytes in Blood by Automated counon 44-12-5290CEN corrected for nucl RBC Auto (Bld) [#/Vol]Leukocytes [#/volume] corrected for nucleated erythrocytes in Blood by Automated coun3.70-11.00Cherrington HospitalH Auto (RBC) [Entitic mass]on 41-51-6594YHU (RBC) [Entitic mass]MCH [Entitic mass] by Automated count26.0-34.0[facility] Memorial HospitalMCHC Auto (RBC) [Mass/Vol]on 63-60-8934AMGT (RBC) [Mass/Vol]MCHC [Mass/volume] by Automated count30.5-36.0[facility] HospitalMCV Auto (RBC) [Entitic vol]on 48-59-7704TOT (RBC) [Entitic vol]MCV [Entitic volume] by Automated count 80.0-100.0[facility] Memorial HospitalMagnesium SerPl-mCncon 07-29-2024 Magnesium [Mass/Vol]2.0 mg/dLNormal1.7-2.3CUniversity Hospitals Cleveland Medical CenterComment on above:Order Comment: Specimen Type: BLOOD SPECIMENOrdering Facility: [facility] Address:[address] [place], [place] [address]Performed By: #### 78871-0, 75796-9 ####[facility] LABCLIA [id number] [place], [place] [address]Eb Panel Informationon 49-31-5139Wxgfulaon GFR (CKD-EPI)61 mL/min/1.73m???>=60[facility] Memorial HospitalComment on above:Estimated Glomerular Filtration Rate [...] reflect actual GFR.Nucleated RBC Auto (Bld) [#/Vol]on 09-16-8589Zdgvliuwy RBC (Bld) [#/Vol]Nucleated erythrocytes [#/volume] in Blood by Automated count<0.01[facility] Platelet mean volume Auto (Bld) [Entitic vol]on 58-48-4318Xgyxbtcd mean volume (Bld) [Entitic vol]Platelet mean volume [Entitic volume] in Blood by Automated count9.0-12.7FOhioHealth Nelsonville Health CenterPlatelets Auto (Bld) [#/Vol]on 64-40-5933Oiuvistan (Bld) [#/Vol]Platelets [#/volume] in Blood by Automated -655RhacbpeldMemorial Health System Marietta Memorial HospitalRBC Auto (Bld) [#/Vol]on 07-29-2024 RBC (Bld) [#/Vol]Erythrocytes [#/volume] in Blood by Automated countLow4.20-6.00 [facility] Hospitalerum or plasma anion gap determinationon 28-81-1079Flote gap [Moles/Vol]Serum or plasma anion gap determinationLow8-15 [facility] Hospitalerum or plasma calcidiol measurement (mass/volume)on 410763-lmmzxcbbucrkpq D3 [Mass/Vol]Serum or plasma calcidiol measurement (mass/volume)31.0-80.0[facility] Comment on above:Classification of 25 [place] Vitamin D status: Deficiency/Insufficiency: < or = 30 ng/ml.Sufficiency/Optimal Levels: 31-80 ng/mLToxicity: > 100 ng/mL. Test performed by chemiluminescent immunoassay.Vit B12 SerPl-mCncon 14-87-2683Tonwwkwpk (Vitamin B12) [Mass/Vol]729 pg/mLNormal 232-1245[facility] Hoke HospitalComment on above:Order Comment: Specimen Type: BLOOD SPECIMENOrdering Facility: [facility] Address:[address] [place], [place] [address]Performed By: #### 2143-6, 2132-9 ####[facility] LABCLIA [id number] [place] [address] [place] AMERICAUS Chest limitedon 85-69-2688Kpynkdzfx Clinic ALBUMINon 91-58-7325Swzexea [Mass/Vol]3.9 g/dL3.9 - 4.9 g/dLTrinity Health [facility] Albumin (Body fld) [Mass/Vol]on 51-30-9619Srjbg Nom (Body fld)Pleural Cavity, RightNormalCleveland [facility] Hoke HospitalComment on above:Order Comment: Specimen Type: SPECIMEN FROM PLEURA OBTAINED BY THORACENTESISOrdering Facility: [facility] Address: [address] [place], [place] [address]Result Comment: recurrent pleual effusion on rightPerformed By: #### 2529-6, 2881-1, 174-5 ####[facility] LABCLIA [id number] [place] [address] [place] AMERICAAlbumin Fld-mCncon 07-20-2024 Albumin (Body fld) [Mass/Vol]1.4 g/dLNormalSee CommentPromedica Fostoria Community Hospital Comment on above:Order Comment: Specimen Type: SPECIMEN FROM PLEURA OBTAINED BY THORACENTESISOrdering Facility: [facility] Address: [address] [place], [place] [address]Result Comment: Body Fluid Albumin may be used [...] document C49A. Hao PA: Clinical Laboratory Standards Pound: 2007.2. Dionicio SERNA. Serum to ascites albumin gradient. UpToDate. 2015. Accessed on September 28, 2015.Performed By: #### 2529-6, 2881-1, 1747-5 ####[facility] LABCLIA [id number] [place] [address] [place] AMERICAAlbumin SerPl-mCncon 07-20-2024 Albumin [Mass/Vol]3.9 g/dLNormal3.9-4.9[facility] on above:Order Comment: Specimen Type: BLOOD SPECIMENOrdering Facility: [facility] Address:[address] [place], [place] [address]Performed By: #### 1751-7, 2885-2 ####[facility] LABCLIA [id number] [address]ENUEDESK [id number] [place] [address] [place] OF AMERICACNOVon 20-69-4143RVXT NormalPromedica Fostoria Community HospitalLACTATE DEHYDROGENASEon 06-32-4215UVU [Catalytic activity/Vol]293 U/DBrzr498 - 225 U/LClevelKettering Health Greene MemorialComsurgeons choice medical center on above:Hemolysis present. The origin of the hemolysis, in vitro versus an in vivo hemolytic process, cannot be distinguished via this assay alone. In vitro hemolysis may lead to non-physiological (spurious)elevation in lactate dehydrogenase (LDH) results. The result should be interpreted in context of the clinical setting and other test results. Suggest reorder as clinically indicated. LDH Fld-cCncon 41-12-4232GPJ (Body fld) [Catalytic activity/Vol]167 U/LNormalSee CommentMartin Memorial Hospital on above:Order Comment: Specimen Type: SPECIMEN FROM PLEURA OBTAINED BY THORACENTESISOrdering Facility: [facility] Address: [address] [place], [place] [address]Result Comment: Pleural fluids: Pleural fluid lactate dehydrogenase [...] document C49A. RAJEEV Bui: Clinical Laboratory Standards Pound: 2007.Reference: 2. Rafael STARK, Fei Doyle. Body [...] 2529-6, 2881-1, 1747-5 ####[facility] LABIA [id number] [address] SerPl-cCncon 56-84-7441SFO [Catalytic activity/Vol]293 U/VMlbb863-805 [facility] Community HospitalComsurgeons choice medical center on above:Order Comment: Specimen Type: BLOOD SPECIMENOrdering Facility: [facility] Address:[address] [place], [place] [address]Result Comment: Hemolysis present. The origin of the [...] #### 2532-0 ####[facility] LABIA [id number] [place] [address] [facility] HEALTHLD [Catalytic activity/Vol]on 57-45-3952Hcnmcghelcrkav and review of laboratory resultsAbnormalCleveland [facility] Laboratory - Chemistry and Chemistry - challengeon 41-84-0167Jsfxryf [Mass/Vol] 3.9 g/dL3.9-4.9[facility] HospitalLDH [Catalytic activity/Vol]293 U/AZimy617-812PbjzawxuoMemorial Health System Marietta Memorial HospitalComsurgeons choice medical center on above:Hemolysis present. The origin of the hemolysis, in vitro versus an in vivo hemolytic process, cannot be distinguished via this assay alone. In vitro hemolysis may lead to non-physiological (spurious)elevation in lactate dehydrogenase (LDH) results. The result should be interpreted in context of the clinical setting and other test results. Suggest reorder as clinically indicated.No Panel Information on 17-51-0902Cyiydjjdehiemo and review of laboratory resultsNormalCleveland ClinicTrinity Health System Twin City Medical CenterPROTEIN, TOTALon 38-47-9131Waswiqe [Mass/Vol]7.6 g/dL6.3 - 8.0 g/dLTrinity Health System Twin City Medical CenterProt Fld-mCncon 44-85-0693Qzkllek (Body fld) [Mass/Vol] 2.2 g/dLNormalSee CommentMartin Memorial Hospital on above:Order Comment: Specimen Type: SPECIMEN FROM PLEURA OBTAINED BY THORACENTESISOrdering Facility: [facility] Address: [address] [place], [place] [address]Result Comment: Serous fluids: Effusions are the accumulation [...] document C49A. RAJEEV Bui: Clinical Laboratory Standards Pound: 2007.Performed By: #### 2529-6, 2881-1, 1747-5 ####[facility] LABCLIA [id number] [place] [address] [place] AMERICAProt SerPl-mCncon 07-20-2024 Protein [Mass/Vol]7.6 g/dLNormal6.3-8.0[facility] on above:Order Comment: Specimen Type: BLOOD SPECIMENOrdering Facility: [facility] Address:[address] [place], [place] [address]Performed By: #### 1751-7, 2885-2 ####[facility] LABCLIA [id number] [place] [address] [place] AMERICAProtein [Mass/volume] in Serum or Plasmaon 38-69-5699Gllxotp [Mass/Vol]Protein [Mass/volume] in Serum or Plasma6.3-8.0[facility] Memorial HospitalUS Chest limitedon 07-20-2024 Radiology Study observation (narrative)[facility] Medical CenterXR CHEST 2V FRONTAL/LATon 15-44-3146HK CHEST 2V FRONTAL/LATNormalCUniversity Hospitals Cleveland Medical CenterXR Chest PA and Lateralon 39-08-4115MGIJIYBWIB: Decreased size of small right pleural effusion. Manager Clinical Services: ALONSO Transcribe Date/Time: Jul 20 2024 12:41P Dictated by : PANCHO CANALES MD This examination was interpreted and the report reviewed and electronically signed by: ANALY ALONSO MD on Jul 20 2024 1:49PM [facility] DIVISION OF RADIOLOGY* * *Final [...] within the thoracic spine. DIVISION OF RADIOLOGYProvider, [facility] - 07/20/2024 * * *Final Report* * [...] Decreased size of small right pleural effusion. Manager Clinical Services: PSCB Transcribe Date/Time: Jul 20 2024 12:41P Dictated by : PANCHO CANALES MD This examination was interpreted and the report reviewed and electronically signed by: ANALY ALONSO MD on Jul 20 2024 1:49PM [facility] CenterRadiology Study observation (narrative)[facility] Chest PA and LateralOrdered By: Ccf Provider on 02-28-0178Tsiugnvul ClinicCNPNon 18-62-2193PNBQOtbyjnDxdllvwma Clinic ClevelandCNPNon 25-05-7614JPMTGikwkz [facility] Community HospitalBODY FLUID CELL COUNTon 64-46-8723Jeytmqa (Unsp spec) ClearNormalClearMartin Memorial Hospital on above:Order Comment: Specimen Type: SPECIMEN FROM PLEURA OBTAINED BY THORACENTESISOrdering Facility: [facility] Address: [address] [place] [address] Performed By: #### CAPO, [id number] ####[facility] LABCLIA [id number] [place] [address] [place] Color (Body fld)YellowNormalYellowMartin Memorial Hospital on above: Order Comment: Specimen Type: SPECIMEN FROM PLEURA OBTAINED BY THORACENTESISOrdering Facility: [facility] Address: [address] [place], [place] [address]Performed By: #### CAPO, [id number] ####[facility] LABCLIA [id number] [place] [address] [place] AMERICARBC Manual cnt (Body fld) [#/Vol]<2000Normal<2000 [facility] on above:Order Comment: Specimen Type: SPECIMEN FROM PLEURA OBTAINED BY THORACENTESISOrdering Facility: [facility] Address: [address] [place], [place] [address]Performed By: #### CCBF, [id number] ####[facility] LABCLIA [id number] [place] [address] [place] AMERICASpecimen source Nom (Body fld)Pleural Cavity, RightLakeHealth TriPoint Medical Center on above:Order Comment: Specimen Type: SPECIMEN FROM PLEURA OBTAINED BY THORACENTESISOrdering Facility: [facility] Address: [address] [place], [place] [address]Performed By: #### CCBF, [id number] ####[facility] LABCLIA [id number] [place] [address] [place] AMERICAWBC Manual cnt (Body fld) [#/Vol]408 /uLNormal<1000 [facility] on above:Order Comment: Specimen Type: SPECIMEN FROM PLEURA OBTAINED BY THORACENTESISOrdering Facility: [facility] Address: [address] [place], [place] [address]Performed By: #### CCDIONICIO, [id number] ####[facility] LABCLIA [id number] [place] [address] [place] AMERICACNOVon 96-03-8725EYAUEmksgpDhevcwioqBarnesville HospitalFLOW CYTOMETRY FOR LEUKEMIA/LYMPHOMA (FCLL) PERFORMABLEon 30-46-9385HBFS CYTOMETRY ORDER STATUS Results will be reported under F case ID when completedLakeHealth TriPoint Medical Center on above:Order Comment: Specimen Type: SPECIMEN FROM PLEURA OBTAINED BY THORACENTESISOrdering Facility: [facility] Address: [address] [place], [place] [address]Performed By: #### FCLLP ####[facility] LABCLIA [id number] [place] [address] [place] [facility] WEST CAMPUSFLOW CYTOMETRY FOR LEUKEMIA/LYMPHOMA (FCLL) REFLEX on 24-04-2938RYSTXJGBI COMMENTNoKettering Health – Soin Medical Center on above: Order Comment: Specimen Type: SPECIMEN FROM PLEURA OBTAINED BY THORACENTESISOrdering Facility: [facility] Address: [address] [place], [place] [address]Result Comment: This test was developed and its performance characteristics determined by [facility] Amna Jonnathan [facility] ([facility]ALTH CENTERPLAR). It has not been cleared or approved by the FDA. [facility] is regulated under CLIA as qualified to perform high-complexity testing. This test is used for clinical purposes. It should not be regarded as investigational orfor research.Performed By: #### FCLLRFLX ####[facility] LABIA [id number] [address] STATES OF [facility] WEST CAMPUSFINAL PERFORMING LABNormal [facility] on above:Order Comment: Specimen Type: SPECIMEN FROM PLEURA OBTAINED BY THORACENTESISOrdering Facility: [facility] Address: [address] [place], [place] [address]Result Comment: Diagnostic interpretation performed at [facility], [address] [place] [address] CLIA# [id number] Director: Ramos Strickland M.D. Performed By: #### FCLLRFLX ####[facility] LABIA [id number] [address] STATES [facility] FLOW CYTOMETRY RESULTSNormalCUC Medical Center on above:Order Comment: Specimen Type: SPECIMEN FROM PLEURA OBTAINED BY THORACENTESISOrdering Facility: [facility] Address: [address] [place], [place] [address]Result Comment: Specimen type: Pleural fluidTotal nucleated cell [...] Normal PatternCD7 T/NK-cells Normal PatternCD8 T-cellsubset Normal LztavsvEG39 B-cell subset Normal PgdalrcVD21 Myeloid Normal ItzxcgjWE87/56 NK cells Normal EawaeydXV00 B-cells Normal CrgkztdWN37 B-cells Normal VeervpiVG94 B-cells subset Normal QhrhqjeIZ55 Ramos-leukocyte Normal JreoxljQV807 Dendritic Normal OwtcwgaKD259 B-cells Normal Patternkappa/lambda B-cells Normal PatternTRBC1 T-cells Normal, polytypicFlow cytometric analysis of the pleural fluid reveals that 95% of total events have the CD45 and side scatter properties of lymphocytes.The lymphocytes are composed of a mixture of heterogeneous T- cells (75%; CD4:CD8 ratio = 2.48), NK cells (15%) and polytypic B-cells (8%).OVN/AMIRAH 06/23/2024Performed By: #### FCLLRFLX ####[facility] LABIA [id number] [address] OF [facility] CAMPUSGROSS DESCRIPTIONNoKettering Health – So[facility] on above: Order Comment: Specimen Type: SPECIMEN FROM PLEURA OBTAINED BY THORACENTESISOrdering Facility: [facility] Address: [address] [place], [place] [address]Result Comment: A. Pleural Cavity, RightRECEIVED 10 MLS PLEURAL FLUIDPerformed By: #### FCLLRFLX ####[facility]OSPITALIA [id number] [address]REETINTERPRETATIONLakeHealth TriPoint Medical Center on above:Order Comment: Specimen Type: SPECIMEN FROM PLEURA OBTAINED BY THORACENTESISOrdering Facility: [facility] Address: [address] [place], [place] [address]Result Comment: There is no immunophenotypic evidence of involvement by a lymphoproliferative disorder. Correlation with the clinical findings is suggested. Performed By: #### FCLLRFLX ####[facility] LABCLIA [id number] [place] [id number] [facility] Glucose Fld-mCncon 50-41-6680Ooxqcyn (Body fld) [Mass/Vol]112 mg/dLNormalSee CommentMartin Memorial Hospital on above:Order Comment: Specimen Type: SPECIMEN FROM PLEURA OBTAINED BY THORACENTESISOrdering Facility: [facility] Address: [address] [place], [place] [address]Result Comment: Synovial fluid: Synovial fluid glucose measurement [...] document C49A. RAJEEV Bui: Clinical Laboratory Standards Pound: 2007. Performed By: #### 2344-0, 2529-6, 2881-1 ####[facility] LABCLIA [id number] [address] STATES OF [facility] WEST CAMPUSHISTORY PHYSICALon 41-45-6578OBBZIFK PHYSICALNormalClevelUK Healthcare Fld-cCncon 56-31-7406VVS (Body fld) [Catalytic activity/Vol]100 U/L NormalSee CommentMartin Memorial Hospital on above:Order Comment: Specimen Type: SPECIMEN FROM PLEURA OBTAINED BY THORACENTESISOrdering Facility: [facility] Address: [address] [id number] Comment: Pleural fluids: Pleural fluid lactate dehydrogenase [...] document C49A. Hao PA: Clinical Laboratory Standards Pound: 2007.Reference: 2. Rafael STARK, Fei Doyle. Body [...] 2529-6, 2881-1 ####[facility] LABCLIA [id number] [place] [address] [place] OF AMERICAMANUAL DIFFERENTIAL, BODY FLUIDon 61-30-6557FIQ TTL, BODY KGMSJ681 cells countedNormalCUC Medical Center on above:Order Comment: Specimen Type: SPECIMEN FROM PLEURA OBTAINED BY THORACENTESISOrdering Facility: [facility] Address: [address] [place], [place] [address]Performed By: #### CCDIONICIO, [id number] ####[facility] LABCLIA [id number] [place] [address] [place] AMERICALYMPH%, BF80 % Mulw90-96OtnmgiwtiMartin Memorial Hospital on above:Order Comment: Specimen Type: SPECIMEN FROM PLEURA OBTAINED BY THORACENTESISOrdering Facility: [facility] Address: [address] [place], [place] [address]Performed By: #### CCDIONICIO, [id number] ####[facility] LABCLIA [id number] [place] [address] [place] AMERICAMACRO%, BF6 % Igd95-45VmbijsxtdMartin Memorial Hospital on above:Order Comment: Specimen Type: SPECIMEN FROM PLEURA OBTAINED BY THORACENTESISOrdering Facility: [facility] Address: [address] [place], [place] [address]Performed By: #### CCBF, [id number] ####[facility] LABCLIA [id number] [place] [address] [place] AMERICAMESO %, BF1 % Normal0-2ClevelTrinity Health System West Campus on above:Order Comment: Specimen Type: SPECIMEN FROM PLEURA OBTAINED BY THORACENTESISOrdering Facility: [facility] Address: [address] [place], [place] [address]Performed By: #### CCBF, [id number] ####[facility] LABCLIA [id number] [place] [address] [place] AMERICAMONO% BF6 % [facility] on above:Order Comment: Specimen Type: SPECIMEN FROM PLEURA OBTAINED BY THORACENTESISOrdering Facility: [facility] Address: [address] [place], [place] [address]Performed By: #### CCBF, [id number] ####[facility] LABCLIA [id number] [place] [address] [place] AMERICANEUT%, BF6 % High0-1ClevelTrinity Health System West Campus on above:Order Comment: Specimen Type: SPECIMEN FROM PLEURA OBTAINED BY THORACENTESISOrdering Facility: [facility] Address: [address] [place], [place] [address]Performed By: #### CCBF, [id number] ####[facility] LABCLIA [id number] [place] [address] [place] AMERICAREAC LYMPH %, BF1 %NormalMartin Memorial Hospital on above:Order Comment: Specimen Type: SPECIMEN FROM PLEURA OBTAINED BY THORACENTESISOrdering Facility: [facility] Address: [address] [place], [place] [address]Performed By: #### CCBF, [id number] ####[facility] LABCLIA [id number] [place] [address] [place] AMERICAOPERATIVE NOon 68-75-8346PHOOWNLBR NONormalCleveland Clinic ClevelandProt Fld-mCncon 06-22-2024 Protein (Body fld) [Mass/Vol]2.6 g/dLNormalSee CommentPromedica Fostoria Community Hospital Comment on above:Order Comment: Specimen Type: SPECIMEN FROM PLEURA OBTAINED BY THORACENTESISOrdering Facility: [facility] Address: [address] [place], [place] [address]Result Comment: Serous fluids: Effusions are the accumulation [...] document C49A. RAJEEV Bui: Clinical Laboratory Standards Pound: 2007.Performed By: #### 2344-0, 2529-6, 2881-1 ####[facility] LABCLIA [id number] [place] [address] [place] CNOVon 32-12-7268FCZQSfogmoGscrqbqel Clinic ClevelandBasi metabolic 2000 panel on 20-55-5131Jofhc gap [Moles/Vol]13 mmol/LNormal8-15[facility] Comment on above:Order Comment: Specimen Type: BLOOD SPECIMENOrdering Facility: [facility] Address:[address] [place] [address] Performed By: #### 49959-5 ####[facility] LABCLIA [id number] [place] [address] [place] Calcium [Mass/Vol]9.3 mg/dLNormal8.5-10.2CUniversity Hospitals Cleveland Medical CenterComment on above:Order Comment: Specimen Type: BLOOD SPECIMENOrdering Facility: [facility] Address:[address] [place], [place] [address]Performed By: #### 81751-4 ####[facility] LABCLIA [id number] [place] [address] [place] AMERICAChloride [Moles/Vol] 100 mmol/UXnnajr60-935FfffsetujMartin Memorial Hospital on above:Order Comment: Specimen Type: BLOOD SPECIMENOrdering Facility: [facility] Address:[address] [place], [place] [address]Performed By: #### 44059-2 ####[facility] LABIA [id number] [place] [address] [place] AMERICACO2 [Moles/Vol]29 mmol/LNormal 22-30[facility] on above:Order Comment: Specimen Type: BLOOD SPECIMENOrdering Facility: [facility] Address:[address] [place], [place] [address]Performed By: #### 01889-8 ####[facility] LABIA [id number] [place] [address] [place] AMERICACreatinine [Mass/Vol]1.19 mg/dLNormal0.73-1.22[facility] on above:Order Comment: Specimen Type: BLOOD SPECIMENOrdering Facility: [facility] Address:[address] [place], [place] [address]Performed By: #### 82056-0 ####[facility] LABIA [id number] [place] [address] [place] Creatinine and Glomerular filtration rate.predicted panel (S/P/Bld)64 mL/min/1.73m???Normal>=60[facility] on above:Order Comment: Specimen Type: BLOOD SPECIMENOrdering Facility: [facility] Address:[address] [place], [place] [address]Result Comment: Estimated Glomerular Filtration Rate (eGFR) is [...] not accurately reflect actual GFR.Performed By: #### 12219-1 ####[facility] LABCLIA [id number] [place] [address] [place] AMERICAGlucose [Mass/Vol]158 mg/dLHigh 74-99[facility] on above:Order Comment: Specimen Type: BLOOD SPECIMENOrdering Facility: [facility] Address:[address] [id number] Comment: The English Diabetes Association (ADA) provides guidance for cutoff [...] Standards of Medical Care in Diabetes 2016, English Diabetes Association. Diabetes Care. 2016.39(Suppl 1).Performed By: #### 10112-0 ####[facility] LABCLIA [id number] [place] [address] [place] AMERICAPotassium [Moles/Vol]4.1 mmol/L Normal3.7-5.1[facility] on above:Order Comment: Specimen Type: BLOOD SPECIMENOrdering Facility: [facility] Address:[address] [place], [place] [address]Ezgmwktia By: #### 74235-4 ####[facility] LABCLIA [id number] [address] [address] [place] OF AMERICASodium [Moles/Vol]142 mmol/OEgipvk572-055Vnuqttrtz Clinic ClevelandComment on above:Order Comment: Specimen Type: BLOOD SPECIMENOrdering Facility: [facility] Address:[address] [place], [place] [address]Performed By: #### 69770-8 ####[facility] LABCLIA [id number] [place] [address] [place] AMERICAUrea nitrogen [Mass/Vol]28 mg/dLHigh9-24[facility] Comment on above:Order Comment: Specimen Type: BLOOD SPECIMENOrdering Facility: [facility] Address:[address] [place] [address] Performed By: #### 98074-5 ####[facility] LABCLIA [id number] [place] [address] [place] CNPNon 61-25-2531PXWOZvmbfcDjslkktqm Clinic ClevelandALBUMIN, BODY FLUIDon 33-57-7304Srwfmxs (Body fld) [Mass/Vol]1.4 g/dLSee CommentTrinity Health System [facility] City [facility] Comment on above:Body Fluid Albumin [...] document C49A. Hao PA: Clinical Laboratory Standards Pound: 2007. 2. Dionicio SERNA. Serum to ascites albumin gradient. UpToDate. 2015. Accessed on September 28, 2015. BODY FLUID CELL COUNTOrdered By: Britton Andrews on 91-64-0071DDO Manual cnt (Body fld) [#/Vol]/uLNINF - 2000 /[facility] Hospitalpecimen source Nom (Body fld) Pleural Cavity, RightHolzer Medical Center – Jackson Manual cnt (Body fld) [#/Vol]443 /uL NINF - 1000 /uLOhioHealth Marion General Hospital ClinicCHOLESTEROL BFLon 05-19-2024 Cholesterol (Body fld) [Mass/Vol]30 mg/dLSee CommentCleCentervilleComment on above:SYNOVIAL FLUIDS: Synovial fluid cholesterol measurement [...] document C49-A. RAJEEV Bui: Clinical Laboratory Standards Pound; 2007. Comprehensive metabolic 2000 panelon 95-85-1293Ecpsuri [Mass/Vol]3.8 g/dLLow3.9 - 4.9 g/dLSalt Lake City ClinicALP [Catalytic activity/Vol]174 U/LHigh38 - 113 U/L [facility] [place] [facility] ClinicALT [Catalytic activity/Vol]22 U/L10 - 54 U/LCleveland [facility] Anion gap [Moles/Vol]16 mmol/LHigh8 - 15 mmol/LCleveland ClinicAST [Catalytic activity/Vol]28 U/L14 - 40 U/LCleveland ClinicBilirubin [Mass/Vol]0.7 mg/dL0.2 - 1.3 mg/dLSalt Lake City ClinicCalcium [Mass/Vol]9.1 mg/dL8.5 - 10.2 mg/dLSalt Lake City ClinicChloride [Moles/Vol]98 mmol/L98 - 107 mmol/LCleveland ClinicCO2 [Moles/Vol]28 mmol/L22 - 30 mmol/LCleveland ClinicCreatinine [Mass/Vol]1.14 mg/dL0.73 - 1.22 mg/dLSalt Lake City ClinicGFR/1.73 sq M.predicted among non-blacks MDRD (S/P/Bld) [...] not accurately reflect actual GFR.Glucose [Mass/Vol] 112 mg/jIAccn76 - 99 mg/dLTrinity Health System Twin City Medical CenterComment on above:The English Diabetes Association (ADA) provides guidance for cutoff [...] Standards of Medical Care in Diabetes 2016, English Diabetes Association. Diabetes Care. 2016.39(Suppl 1). Interpretation and review of laboratory resultsAbnormalCleveland ClinicPotassium [Moles/Vol]3.4 mmol/LLow3.7 - 5.1 mmol/LCleveland ClinicProtein [Mass/Vol]6.6 g/dL6.3 - 8.0 g/dLSalt Lake City ClinicSodium [Moles/Vol]142 mmol/L136 - 144 mmol/L [facility] Medical CenterUrea nitrogen [Mass/Vol]21 mg/dL9 - 24 mg/dLTrinity Health System [facility] GLUCOSE, BODY FLUIDon 46-57-6518Testuhx (Body fld) [Mass/Vol]106 mg/dLSee CommentTrinity Health System Twin City Medical CenterComment on above:Synovial fluid: Synovial fluid [...] Fluids in Clinical Chemistry Approved Guideline. CLSI [id number]. RAJEEV Bui: Clinical Laboratory Standards Pound: 2007. LACTATE DEHYDROGENASEon 22-67-1657AEA [Catalytic activity/Vol]209 U/L135 - 225 U/LCleveland ClinicComment [...] as clinically indicated. LACTATE DEHYDROGENASE, BODY FLUIDon 60-66-9884WRK (Body fld) [Catalytic activity/Vol]86 U/LSee CommentCleveland ClinicComment on above:Pleural fluids: Pleural fluid lactate [...] Fluids in Clinical Chemistry Approved Guideline. CLSI [id number]. RAJEEV Bui: Clinical Laboratory Standards Pound: 2007. Reference: 2. Rafael STARK, Fei Doyle. [...] J Rheumatol.1992:19:529 to 533. LDH [Catalytic activity/Vol]on 81-88-3463Rxkxoobwsuqqnm and review of laboratory resultsNormalCleveland ClinicLaboratoryon 93-23-9640Xrqmu Nom (Body fld)Pleural Cavity, RightCleveland ClinicLaboratory - Specimen informationOrdered By: Britton Andrews on 95-42-5504Tjqsayz (Unsp spec)ClearClearCleveland ClinicColor (Body fld)YellowYellowTrinity Health System Twin City Medical CenterNo Panel Informationon 57-65-0674Grtpjpehc ClinicTrinity Health System Twin City Medical CenterPH PLEURAL FLUID (FOR USE OUTSIDE OF [facility])on 05-19-2024 Fluid Nom (Body fld)Pleural Cavity, RightCleCentervillepH (Body fld)7.9 [pH] [facility] Medical CenterComsurgeons choice medical center on above:No reference range has been established for this specimen type. This test was developed, and its performance characteristics determined by the [facility] Department of Pathology and Laboratory Medicine. It has not been cleared or approved by the FDA. The [facility] Department of Pathology and Laboratory Medicine is regulated under CLIA as qualified to perform high-complexity testing. This test is used for clinical purposes. It should not be regarded as investigational or for research. [facility] Medical CenterPROTEIN, BODY FLUIDon 33-01-3704Gnbkddt (Body fld) [Mass/Vol]2.2 g/dLSee CommentTrinity Health System Twin City Medical CenterComment on above:Serous fluids: Effusions are [...] Fluids in Clinical Chemistry Approved Guideline. CLSI sggypwrdH42A. RAJEEV Bui: Clinical Laboratory Standards Pound: 2007. TRIGLYCERIDE BFLon 35-33-3450Cphroztfeldv (Body fld) [Mass/Vol]13 mg/dLTrinity Health System Twin City Medical CenterComment on above:Synovial fluids: Synovial fluid triglycerides measurement [...] document C49A. RAJEEV Bui: Clinical Laboratory Standards Pound; 2007. Albumin Fld-ncon 77-39-4769Jfejauu (Body fld) [Mass/Vol]1.4 g/dLNormTulsa Center for Behavioral Health – [place] CommentMartin Memorial Hospital on above:Order Comment: Specimen Type: FLUID SPECIMENOrdering Facility: [facility] Address:[address] [place], [place] [address]Result Comment: Body Fluid Albumin may be used [...] document C49A. RAJEEV Bui: Clinical Laboratory Standards Pound: 2007.2. Dionicio SERNA. Serum to ascites albumin gradient. UpToDate. 2015. Accessed on September 28, 2015.Performed By: #### 2344-0, 2529-6, 2881-1, 74118-9, 08834-4, 1747-5 ####[facility] LABCLIA [id number] [address] STATES OF [place] BF STAFF REVIEW (LAB ORDER)on 80-37-1505FJ REVIEWReviewed by Lisy Acuña M.D., Ph.DNGlenbeigh Hospital on above:Order Comment: Specimen Type: FLUID SPECIMENOrdering Facility: [facility] Address:[address] [place], [place] [address]Performed By: #### CCBF, [id number], [id number] ####[facility] LABCLIA [id number] [address] STATES OF [facility] CAMPUSBF STAFF COMMENTS Numerous mature polymorphous lymphocytes. If there is clinical concern for a lymphoproliferative disorder, please order flow cytometric analysis.Normal [facility] on above:Order Comment: Specimen Type: FLUID SPECIMENOrdering Facility: [facility] Address:[address] [place], [place] [address]Performed By: #### CCBF, [id number], [id number] ####[facility] LABCLIA [id number] [address] STATES OF AMERICABODY FLUID CELL COUNTon 20-88-4970Grzxqsc (Unsp spec)ClearNoalClearMartin Memorial Hospital on above:Order Comment: Specimen Type: FLUID SPECIMENOrdering Facility: [facility] Address:[address] [place], [place] [address]Performed By: #### CCBF, [id number], [id number] ####[facility] LABCLIA [id number] [place] [address] [place] AMERICAColor (Body fld)Yellow NormalYellowMartin Memorial Hospital on above:Order Comment: Specimen Type: FLUID SPECIMENOrdering Facility: [facility] Address:[address] [place], [place] [address]Performed By: #### CCBF, [id number], [id number] ####[facility] LABCLIA [id number] [place] [address] [place] AMERICARBC Manual cnt (Body fld) [#/Vol] <2000Normal<2000[facility] on above:Order Comment: Specimen Type: FLUID SPECIMENOrdering Facility: [facility] Address:[address] [place], [place] [address]Performed By: #### CCBF, [id number], [id number] ####[facility] LABCLIA [id number] [place] [address] [place] AMERICASpecimen source Nom (Body fld)Pleural Cavity, RightNormalCUC Medical Center on above: Order Comment: Specimen Type: FLUID SPECIMENOrdering Facility: [facility] Address:[address] [place], [place] [address]Performed By: #### CCBF, [id number], [id number] ####[facility] LABCLIA [id number] [place] [address] [place] AMERICAWBC Manual cnt (Body fld) [#/Vol]443 /uLNormal<1000[facility] on above:Order Comment: Specimen Type: FLUID SPECIMENOrdering Facility: [facility] Address:[address] [place], [place] [address]Performed By: #### CCDIONICIO, [id number], [id number] ####[facility] LABCLIA [id number] [place] [address] [place] AMERICABacteria Fld Culton 76-81-7614Pbbuzxvy identified Cx Nom (Body fld)CULTURE, BODY FLD: No growth GRAM STAIN: No organisms seen Few Polymorphonuclear leukocytes Many Mononuclear cells Gram stain performed on cytospun specimen. Gram stain from primary specimenNormalMartin Memorial Hospital on above:Performed By: #### 611-4, 62685-8 ####[facility] LABCLIA [id number] [place] [address] [place] AMERICACNOVon 55-21-3867XQESOvoeopQieztajla Clinic ClevelandCYTOLOGY NON-GYNon 05-83-2358GJUE REPORTNormalCUC Medical Center on above:Order Comment: Specimen Type: FLUID SPECIMENOrdering Facility: [facility] Address:[address] [place], [place] [address]Result Comment: Medical Cytology Report Case: [id number] Provider: Louise Cesar MD Collected: 05/18/2024 12:43 PMOrdering Location: Pulmonary Medicine Received: 05/19/2024 05:22 AMPathologist: Tracy Collins MDSpecimen: Pleural Cavity, RightPerformed By: #### CYTONON ####[facility] LABCLIA [id number] [address] STATES OF [place] CLINICAL HISTORYpleural effusionNormalCUC Medical Center on above:Order Comment: Specimen Type: FLUID SPECIMENOrdering Facility: [facility] Address:[address] [place], [place] [address]Performed By: #### CYTONON ####[facility] LABCLIA [id number] [address] STATES OF [facility] CAMPUSFINAL DIAGNOSISNormal [facility] on above:Order Comment: Specimen Type: FLUID SPECIMENOrdering Facility: [facility] Address:[address] [place], [place] [address]Result Comment: A - Pleural Cavity, Right, Sterile Fluid/Body Fluid Negative for malignant cells. Chronic inflammation.The following cell blocks were associated with this case:A1\X09\Cell Block, Alcohol Fixed\X09\ Performed By: #### CYTONON ####[facility] LABCLIA [id number] [address] STATES OF [facility] FINAL PERFORMING LABNormSt. Mary's Medical Center on above:Order Comment: Specimen Type: FLUID SPECIMENOrdering Facility: [facility] Address:[address] [place], [place] [address]Result Comment: Technical component, client care specialist screening performed at [facility], [facility] [place] [id number] CLIA# [id number] interpretation performed at [facility], [address] [place] [address] CLIA# [id number] Director: Ramos Strickland M.D.Performed By: #### CYTONON ####[facility] LABCLIA [id number] [address] STATES OF AMERICAGROSS DESCRIPTIONNormalCChillicothe VA Medical Centerveland Comment on above:Order Comment: Specimen Type: FLUID SPECIMENOrdering Facility: [facility] Address:[address] [place], [place] [address]Result Comment: A. Pleural Cavity, Right20 cc hazy yellow fluid with material. ThinPrep and Cell Block prepared.Performed By: #### CYTONON ####[facility] LABCLIA [id number] [address] STATES OF [facility] CAMPUSCholest Fld-mCncon 00-28-1450Nqeoewmzxli (Body fld) [Mass/Vol] 30 mg/dLNormalSee CommentMartin Memorial Hospital on above:Order Comment: Specimen Type: FLUID SPECIMENOrdering Facility: [facility] Address:[address] [place], [place] [address]Result Comment: SYNOVIAL FLUIDS:Synovial fluid cholesterol measurement may [...] CLSI document C49-A. RAJEEV Bui: Clinical LaboratoryStandards Pound; 2007.Performed By: #### 2344-0, 2529-6, 2881-1, 08334-0, 09401-6, 1747-5 ####[facility] LABCLIA [id number] [place] [address] [place] AMERICAFluid Nom (Body fld)Pleural Cavity, RightNormBethesda North HospitalComment on above: Order Comment: Specimen Type: FLUID SPECIMENOrdering Facility: [facility] Address:[address] [place], [place] [address]Performed By: #### 2344- 0, 2529-6, 2881-1, 97531-8, 35262-4, 1747-5 ####[facility] LABCLIA [id number] [address] [address] [place] STATES OF [facility] WEST CAMPUSPerformed By: #### [id number] ####[facility] LABCLIA [id number] [place] [address] [place] [facility] Comprehensive metabolic 2000 panelon 33-19-7248Ewgjyhb [Mass/Vol]3.8 g/dLLow 3.9-4.9[facility] on above:Order Comment: Specimen Type: BLOOD SPECIMENOrdering Facility: [facility] Address:[address] [place], [place] [address]Performed By: #### 2532-0, 19328-3 ####[facility] LABCLIA [id number] [place] [address] [place] AMERICAALP [Catalytic activity/Vol]174 U/HEfnh60-187XxwlzdwhdMartin Memorial Hospital on above:Order Comment: Specimen Type: BLOOD SPECIMENOrdering Facility: [facility] Address:[address] [place], [place] [address]Performed By: #### 2532-0, 94101-7 ####[facility] LABCLIA [id number] [place] [address] [place] AMERICAALT [Catalytic activity/Vol]22 U/EGssbey04-72CvwpbkjfvMartin Memorial Hospital on above:Order Comment: Specimen Type: BLOOD SPECIMENOrdering Facility: [facility] Address:[address] [address] [place], [place] [address]Performed By: #### 2532-0, 83719-2 ####[facility] LABCLIA [id number] [place] [id number] [place] Anion gap [Moles/Vol]16 mmol/LHigh8-15[facility] on above:Order Comment: Specimen Type: BLOOD SPECIMENOrdering Facility: [facility] Address:[address] [place], [place] [address]Performed By: #### 2532-0, 26583-0 ####[facility] LABCLIA [id number] [place] [address] [place] AMERICAAST [Catalytic activity/Vol]28 U/QSgfghb15-65IhmcocrntMartin Memorial Hospital on above:Order Comment: Specimen Type: BLOOD SPECIMENOrdering Facility: [facility] Address:[address] [place], [place] [address]Performed By: #### 2532- 0, 36287-0 ####[facility] LABCLIA [id number] [place] [address] [place] AMERICABilirubin [Mass/Vol]0.7 mg/dLNormal0.2-1.3[facility] on above:Order Comment: Specimen Type: BLOOD SPECIMENOrdering Facility: [facility] Address:[address] [place], [place] [address]Performed By: #### 2532-0, 17296-7 ####[facility] LABIA [id number] [place] [address] [place] AMERICACalcium [Mass/Vol]9.1 mg/dLNormal 8.5-10.2[facility] on above:Order Comment: Specimen Type: BLOOD SPECIMENOrdering Facility: [facility] Address:[address] [place], [place] [address]Performed By: #### 2532-0, 47591-2 ####[facility] LABIA [id number] [place] [address] [place] AMERICAChloride [Moles/Vol]98 mmol/EPvvvht72-805DzfpdmlbsMartin Memorial Hospital on above:Order Comment: Specimen Type: BLOOD SPECIMENOrdering Facility: [facility] Address:[address] [place], [place] [address]Performed By: #### 2532-0, 50852-9 ####[facility] LABCLIA [id number] [place] [address] [place] AMERICACO2 [Moles/Vol]28 mmol/EVcbbae68-94EjcpexndePromedica Fostoria Community Hospital Comment on above:Order Comment: Specimen Type: BLOOD SPECIMENOrdering Facility: [facility] Address:[address] [place] [address] Performed By: #### 2532-0, 78954-5 ####[facility] LABIA [id number] [place] [address] [place] Creatinine [Mass/Vol]1.14 mg/dLNormal0.73-1.22Prom[facility]ostoria Community HospitalComment on above:Order Comment: Specimen Type: BLOOD SPECIMENOrdering Facility: [facility] Address:[address] [place] [address] Performed By: #### 2532-0, 62266-3 ####[facility]ITAL[facility] [id number] [place] [address] [place] Creatinine and Glomerular filtration rate.predicted panel (S/P/Bld)68 mL/min/1.73m???Normal>=60[facility] on above:Order Comment: Specimen Type: BLOOD SPECIMENOrdering Facility: [facility] Address:[address] [place], [place] [address]Result Comment: Estimated Glomerular Filtration Rate (eGFR) is [...] accurately reflect actual GFR.Performed By: #### 2532-0, 85807-1 ####[facility] LABCLIA [id number] [place] [address] [place] AMERICAGlucose [Mass/Vol]112 mg/dLHigh 74-99[facility] on above:Order Comment: Specimen Type: BLOOD SPECIMENOrdering Facility: [facility] Address:[address] [place], [place] [address]Result Comment: The English Diabetes Association (ADA) provides guidance for cutoff [...] Standards of Medical Care in Diabetes 2016, English Diabetes Association. Diabetes Care. 2016.39(Suppl 1).Performed By: #### 2532-0, 07986-3 ####[facility] LABCLIA [id number] [address] [address] [place] AMERICAPotassium [Moles/Vol]3.4 mmol/LLow3.7-5.1[facility] on above:Order Comment: Specimen Type: BLOOD SPECIMENOrdering Facility: [facility] Address:[address] [place], [place] [address]Performed By: #### 2532-0, ####[facility] LABCLIA [id number] [place] [address] [place] AMERICAProtein [Mass/Vol]6.6 g/dLNormal 6.3-8.0[facility] on above:Order Comment: Specimen Type: BLOOD SPECIMENOrdering Facility: [facility] Address:[address] [place], [place] [address]Performed By: #### 2532-0, ####[facility] LABCLIA [id number] [place] [address] [place] AMERICASodium [Moles/Vol]142 mmol/YWavfqe160-618LqcylmuzwMartin [facility] Hospital on above:Order Comment: Specimen Type: BLOOD SPECIMENOrdering Facility: [facility] Address:[address] [place], [place] [address]Performed By: #### 2532-0, 42578-1 ####[facility] LABCLIA [id number] [address] [address] [place] AMERICAUrea nitrogen [Mass/Vol]21 mg/dLNormal9-24[facility] on above:Order Comment: Specimen Type: BLOOD SPECIMENOrdering Facility: [facility] Address:[address] [place], [place] [address]Performed By: #### 2532-0, 55284-6 ####[facility] LABCLIA [id number] [place] [address] [place] AMERICAFATTY ACIDS PROFILE, ESSENTIALon 50-01-3471Y-LINOLENIC ACID, C18 3W343 nmol/zPEpusnm79-433BfmauqkdpMartin [facility] on above:Order Comment: Specimen Type: BLOOD SPECIMENOrdering Facility: [facility] Address:[address] [place], [place] [address]Performed By: #### CFAPRO ####[facility]IESCLIA [id number] [place], [place] [address]BGQQIIKMQ ACID, C20 018 nmol/mLNormal8-43[facility] on above:Order Comment: Specimen Type: BLOOD SPECIMENOrdering Facility: [facility] Address:[address] [place], [place] [address]Performed By: #### CFAPRO ####[facility]IESCLIA [id number] [place] [address] ARACHIDONIC ACID, C20 4H3056 nmol/sLMaovzr192-4599RbumazigfPromedica Fostoria Community Hospital Comment on above:Order Comment: Specimen Type: BLOOD SPECIMENOrdering Facility: [facility] Address:[address] [place] [address] Performed By: #### CFAPRO ####[facility]IESCLIA [id number] [place], [place] [address]PTF, C22 6W399 nmol/jTWmsnqq81-255QzufuabjaMartin Memorial Hospital on above:Order Comment: Specimen Type: BLOOD SPECIMENOrdering Facility: [facility] Address:[address] [place], [place] [address]Performed By: #### CFAPRO ####[facility]IESCLIA [id number] [facility], [place] [address]GSBSQEIQUU ACID, C22 14 nmol/mLNormal1-10[facility] on above:Order Comment: Specimen Type: BLOOD SPECIMENOrdering Facility: [facility] Address:[address] [place], [place] [address]Performed By: #### CFAPRO ####[facility]IESCLIA [id number] [place], [place] [address]SCA, C22 5W330 nmol/mLNormal 13-75[facility] on above:Order Comment: Specimen Type: BLOOD SPECIMENOrdering Facility: [facility] Address:[address] [place], [place] [address]Performed By: #### CFAPRO ####[facility]IESCLIA [id number] [place], [place] [address]NUF, C22 5W613 nmol/mLNormal 6-55[facility] on above:Order Comment: Specimen Type: BLOOD SPECIMENOrdering Facility: [facility] Address:[address] [place], [place] [address]Performed By: #### CFAPRO ####[facility]IESCLIA [id number] [place], [place] [address]FYI, C22 4W618 nmol/mLNormal 10-40[facility] on above:Order Comment: Specimen Type: BLOOD SPECIMENOrdering Facility: [facility] Address:[address] [place], [place] [address]Performed By: #### CFAPRO ####[facility]IESCLIA [id number] [place], [place] [address]AZH FATTY ACIDS PROF, ESSENTIAL SPSee NoteNormalCUC Medical Center on above:Order Comment: Specimen Type: BLOOD SPECIMENOrdering Facility: [facility] Address:[address] [place], [place] [address]Result Comment: Authorized individuals can access the [facility] Report using the following link:h [email or web address] By: CHACORTA J[address]ixklbdefd[address] [place], [place] [address]Dwfrirsyux Director: Anne-Marie Correa MD, PhDCLIA Number: [id number] By: #### CFAPRO ####[facility]IESCLIA [id number] [place], [place] [address]HTW, C20 5W322 nmol/mLNormal8-130[facility] Community HospitalComsurgeons choice medical center on above:Order Comment: Specimen Type: BLOOD SPECIMENOrdering Facility: [facility] Address:[address] [place], [place] [address]Performed By: #### CFAPRO ####[facility]IESCLIA [id number] [place], [place] [address]Y-BKFQHZESI ACID, C18 3W620 nmol/aBKnuafd98-296SzdwwawwcPromedica Fostoria Community HospitalComment on above: Order Comment: Specimen Type: BLOOD SPECIMENOrdering Facility: [facility] Address:[address] [place], [place] [address]Performed By: #### CFAPRO ####[facility]IESCLIA [id number] [place] [address] R-P-ZHSEOPVZJ C20:3W693 nmol/vQLfryta43-703FcxagbgjwPromedica Fostoria Community HospitalComsurgeons choice medical center on above:Order Comment: Specimen Type: BLOOD SPECIMENOrdering Facility: [facility] Address:[address] [place], [place] [address]Performed By: #### CFAPRO ####[facility]IESCLIA [id number] [place], [place] [address]PHJLHMMUWJPH ACID, C16 1W926 nmol/cVSmhysw94-14DrxwfmkhuPromedica Fostoria Community Hospital Comment on above:Order Comment: Specimen Type: BLOOD SPECIMENOrdering Facility: [facility] Address:[address], [place] [address] Performed By: #### CFAPRO ####[facility]IESCLIA [id number] [place], [place] [address]ZYKKYPXYKYGEUJ, FATTY ACID PROFILENormalNormal [facility] on above:Order Comment: Specimen Type: BLOOD SPECIMENOrdering Facility: [facility] Address:[address] [place], [place] [address]Result Comment: Normal fatty acid profile.Results reviewed and interpreted by Rosemarie Painter MD, PhD, FACINTERPRETIVE INFORMATION: Fatty Acids Profile, Essential Ser/PlasThis test does not screen for disorders of peroxisomalbiogenesis/function.This test was developed and its performance characteristicsdetermined by [facility]. It has not been cleared orapproved by the [place] Food and Drug Administration. This test wasperformed in a CLIA certified laboratory and is intended forclinical purposes.Performed By: #### CFAPRO ####[facility]IESCLIA [id number] [place], [place] [address]RWYATH ACID, C12 022 nmol/mLNormal1-200[facility] on above:Order Comment: Specimen Type: BLOOD SPECIMENOrdering Facility: [facility] Address:[address] [place] [address] Performed By: #### CFAPRO ####[facility]IESCLIA [id number] [place], [place] [address]HMPOGKGA ACID, C18 4N94763 nmol/pXBhotho5539-1953 [facility] on above:Order Comment: Specimen Type: BLOOD SPECIMENOrdering Facility: [facility] Address:[address] [place], [place] [address]Performed By: #### CFAPRO ####[facility]IESCLIA [id number] [place], [place] [address]LWGJ ACID, C20 3W96 nmol/mL Normal1-35[facility] on above:Order Comment: Specimen Type: BLOOD SPECIMENOrdering Facility: [facility] Address:[address] [place], [place] [address]Performed By: #### CFAPRO ####[facility]IESCLIA [id number] [place], [place] [address]RLXWXRJV ACID, C14 069 nmol/tQHqdavg39-661UibmnuqgcMartin [facility] on above:Order Comment: Specimen Type: BLOOD SPECIMENOrdering Facility: [facility] Address:[address] [place], [place] [address]Performed By: #### CFAPRO ####[facility]IESCLIA [id number] [place] [address] NERVONIC ACID, C24 2L9253 nmol/dNLpinbh86-627LhzcbyplpMartin [facility] Hospital on above:Order Comment: Specimen Type: BLOOD SPECIMENOrdering Facility: [facility] Address:[address] [place] [address] Performed By: #### CFAPRO ####[facility]IESCLIA [id number] [place], [place] [address]UHVFP ACID, C18 6P77356 nmol/qAJmjcjg818-4291 [facility] on above:Order Comment: Specimen Type: BLOOD SPECIMENOrdering Facility: [facility] Address:[address] [place], [place] [address]Performed By: #### CFAPRO ####[facility]IESCLIA [id number] [place], [place] [address]LIVPQYOX ACID, C16 [address] nmol/bFXgkewl8733-4108AzjlfyqjzMartin [facility] on above:Order Comment: Specimen Type: BLOOD SPECIMENOrdering Facility: [facility] Address:[address] [place], [place] [address]Performed By: #### CFAPRO ####[facility]IESCLIA [id number] [place], [place] [address]MAAGBHWGGOZ ACID, C16 9I7044 nmol/xDJtigaw60-265YfhzcsntcMartin [facility] Hospital on above: Order Comment: Specimen Type: BLOOD SPECIMENOrdering Facility: [facility] Address:[address] [place], [place] [address]Performed By: #### CFAPRO ####[facility]IESCLIA [id number] [place] [address] STEARIC ACID, C18 0606 nmol/xMZlnrzw388-0775NfznbirdeMartin Memorial Hospital on above:Order Comment: Specimen Type: BLOOD SPECIMENOrdering Facility: [facility] Address:[address] [place], [place] [address]Performed By: #### CFAPRO ####[facility]IESCLIA [id number] [place], [place] [address]XQYUV FATTY ACIDS7.7 mmol/LNormal4.5-15.0[facility] on above:Order Comment: Specimen Type: BLOOD SPECIMENOrdering Facility: [facility] Address:[address] [place] [address] Performed By: #### CFAPRO ####[facility]IESCLIA [id number] [place], [place] [address]URPMO MONOUNSATURATED ACIDS1.9 mmol/LNormal0.9-4.7 [facility] on above:Order Comment: Specimen Type: BLOOD SPECIMENOrdering Facility: [facility] Address:[address] [place], [place] [address]Performed By: #### CFAPRO ####[facility]IESCLIA [id number] [place], [place] [address]OXALG POLYUNSATURATED ACIDS3.1 mmol/LNormal2.1-6.2[facility] on above:Order Comment: Specimen Type: BLOOD SPECIMENOrdering Facility: [facility] Address:[address] [place], [place] [address]Performed By: #### CFAPRO ####[facility]IESCLIA [id number] [place], [place] [address]LLMJP SATURATED ACIDS2.7 mmol/LNormal1.5-5.3[facility] on above:Order Comment: Specimen Type: BLOOD SPECIMENOrdering Facility: [facility] Address:[address] [place], [place] [address]Performed By: #### CFAPRO ####[facility]IESCLIA [id number] [place], [place] [address]PNGWE W30.19 mmol/LNormal0.12-0.55[facility] on above:Order Comment: Specimen Type: BLOOD SPECIMENOrdering Facility: [facility] Address:[address] [place], [place] [address]Performed By: #### CFAPRO ####[facility]IESCLIA [id number] [place], [place] [address]OOPDU W62.9 mmol/LNormal1.8-5.7[facility] on above: Order Comment: Specimen Type: BLOOD SPECIMENOrdering Facility: [facility] Address:[address] [place], [place] [address]Performed By: #### CFAPRO ####[facility]IESCLIA [id number] [place] [address] TRIENE/TETRAENE RATIO0.602Rmtzcb8.004-0.051[facility] on above:Order Comment: Specimen Type: BLOOD SPECIMENOrdering Facility: [facility] Address:[address] [place], [place] [address]Performed By: #### CFAPRO ####[facility]IESCLIA [id number] [place], [place] [address]FRUKYYIR ACID, C18 8B0695 nmol/aWQptysk50-742DipzehnsdPromedica Fostoria Community Hospital Comment on above:Order Comment: Specimen Type: BLOOD SPECIMENOrdering Facility: [facility] Address:[address] [place] [address] Performed By: #### CFAPRO ####[facility]IESCLIA [id number] [place], [place] [address]VFKV CYTOMETRY FOR LEUKEMIA/LYMPHOMA (FCLL) PERFORMABLEon 37-61-3091EZYP CYTOMETRY ORDER STATUSResults will be reported under F case ID when completedNoalCUC Medical Center on above: Order Comment: Specimen Type: FLUID SPECIMENOrdering Facility: [facility] Address:[address] [place], [place] [address]Result Comment: Corrected result: Previously reported as A bone marrow sample was received for potential flow cytometry studies. Following morphologic review, flow cytometric studies will be ordered by the hematopathologist if testing is indicated. on 05/20/2024 at1:05 PM EST.Performed By: #### FCLLP ####[facility] LABCLIA [id number] [address] [place] FLOW CYTOMETRY FOR LEUKEMIA/LYMPHOMA (FCLL) REFLEXon 38-61-5963NROMRPEOY COMMENT [facility] on above:Order Comment: Specimen Type: FLUID SPECIMENOrdering Facility: [facility] Address:[address] [place], [place] [address]Result Comment: This assay is not designed to detect minimal residual disease, plasma cell neoplasms, or myeloid antigen maturational patterns.This test was developed and its performance characteristics determined by [facility]'s [facility] Laboratory [facility] ([facility]ENTERPLMI). It has not been cleared or approved by the FDA. [facility] is regulated under CLIA as qualified to perform high-complexity testing. This test is used for clinical purposes. It should not be regarded as investigational or for research.Performed By: #### FCLLRFLX ####[facility] LABCLIA [id number] [address] OF [facility] CAMPUSFINAL PERFORMING LABNormSt. Mary's Medical [facility] on above: Order Comment: Specimen Type: FLUID SPECIMENOrdering Facility: [facility] Address:[address] [place], [place] [address]Result Comment: Diagnostic interpretation performed at [facility], [address] [place] [address] CLIA# [id number] Director: Ramos Strickland M.D. Performed By: #### FCLLRFLX ####[facility] LABCLIA [id number] [address] OF [facility] FLOW CYTOMETRY RESULTSNormSt. Mary's Medical Center on above:Order Comment: Specimen Type: FLUID SPECIMENOrdering Facility: [facility] Address:[address] [place], [place] [address]Result Comment: Specimen type: Pleural fluidTotal nucleated cell count: 320,000 totalRed blood cellcount: N/ADifferential (serous fluid): See body fluid manual differentialMorphology comments: UnremarkableViability: 91%Flow Cytometry Body Fluid ImmunophenotypingMarker Normal Cell Type Result (Lymphocytes)CD3 T-cells Normal PatternCD4 T-cell subset Normal PatternCD5 T-cells Normal PatternCD7 T/NK-cells Normal PatternCD8 T-cell subset Normal LjguxeqXQ95 Myeloid Normal DbgbqexYI74/56 NK cells Normal GupjyhzOL68 B-cells Normal YcmaayvWN56 Blasts Normal JjpauhpFT81 Ramso-leukocyte Normal Patternkappa/lambda B-cells PolytypicFlow cytometric analysis of the fluid reveals that 40% of total events have the CD45 and light scatter properties of lymphocytes. The lymphocytes are composed of T- cells (54%, CD4:CD8 ratio = 22.32), NK cells (37%), and polytypic B-cells (9%). Granulocytic elements are 1% of events. Blasts are not detected.Performed By: #### FCLLRFLX ####[facility] LABIA [id number] [place] [address] [place] AMERICAGROSS DESCRIPTION NormalPromedica Fostoria Community HospitalComsurgeons [facility] medical [facility] on above:Order Comment: Specimen Type: FLUID SPECIMENOrdering Facility: [facility] Address:[address] [place], [place] [address]Result Comment: A. Pleural Cavity, RightRECEIVED 4 ML OF PLEURAL FLUID Entirely submitted for Flow Cytometry.Performed By: #### FCLLRFLX ####[facility] HOSPITALIA [id number] [place] [address] [place] AMERICAINTERPRETATIONNormal [facility] on above:Order Comment: Specimen Type: FLUID SPECIMENOrdering Facility: [facility] Address:[address] [place], [place] [address]Result Comment: There is no evidence of involvement by a lymphoproliferative disorder or abnormal blast population. Correlation with the clinical findings is suggested.FRANCOISE/SHELBY 05/20/24 Performed By: #### FCLLRFLX ####[facility] LABIA [id number] [place] [address] [place] AMERICAGlucose Ald-Select Specialty Hospital - Johnstownon 76-19-3409Xzaswvo (Body fld) [Mass/Vol]106 mg/dLNormalSee CommentMartin Memorial Hospital on above: Order Comment: Specimen Type: FLUID SPECIMENOrdering Facility: [facility] Address:[address] [place], [place] [address]Result Comment: Synovial fluid: Synovial fluid glucose measurement [...] document C49A. RAJEEV Bui: Clinical Laboratory Standards [place]: 2007.Performed By: #### 2344-0, 2529-6, 2881-1, 48418-4, 81595-0, 1747-5 ####[facility] LABCLIA [id number] [facility] [address]OSPITALK [address] [place] LDH Fld-cCncon 64-57-4939FYH (Body fld) [Catalytic activity/Vol]86 U/LNormalSee CommentMartin Memorial Hospital on above:Order Comment: Specimen Type: FLUID SPECIMENOrdering Facility: [facility] Address:[address] [place], [place] [address]Result Comment: Pleural fluids: Pleural fluid lactate dehydrogenase [...] document C49A. RAJEEV Bui: Clinical Laboratory Standards [place]: 2007.Reference: 2. Rafael STARK, Fei Doyle. Body [...] to 533.Performed By: #### 2344-0, 2529-6, 2881-1, 30500-7, 90127-4, 1747-5 ####[facility] LABCLIA [id number] [place] [address] [place] AMERICALD SerPl-cCncon 25-48-3383JOK [Catalytic activity/Vol]209 U/EPvfczs063-531LdtcmqwarMartin Memorial Hospital on above:Order Comment: Specimen Type: BLOOD SPECIMENOrdering Facility: [facility] Address:[address] [place], [place] [address]Result Comment: Hemolysis present. The origin of the hemolysis, in vitro versus an in vivo hemolytic process, cannot be distinguished via this assay alone. In vitro hemolysis may lead to non-physiological (spurious) elevation in lactate dehydrogenase (LDH) results. Theresult should be interpreted in context of the clinical setting and other test results. Suggest reorder as clinically indicated.Performed By: #### 2532-0, 88614-4 ####[facility] LABIA [id number] [place] [id number] [place] AMERICAMANUAL DIFFERENTIAL, BODY FLUIDon 49-29-9094TKR TTL, BODY MKZIN418 cells countedNormalCUC Medical Center on above:Order Comment: Specimen Type: FLUID SPECIMENOrdering Facility: [facility] Address:[address] [place], [place] [address]Performed By: #### CCBF, [id number], [id number] ####[facility] LABCLIA [id number] [address] [address] [place] AMERICAEOSIN%, BF2 %NormalMartin Memorial Hospital on above:Order Comment: Specimen Type: FLUID SPECIMENOrdering Facility: [facility] Address:[address] [place], [place] [address]Performed By: #### CCDIONICIO, [id number], [id number] ####[facility] LABCLIA [id number] [address] [address] [place] OF AMERICALYMPH%, BF80 %Onoc63-94JpbblcudfPromedica Fostoria Community Hospital Comment on above:Order Comment: Specimen Type: FLUID SPECIMENOrdering Facility: [facility] Address:[address] [place], [place] [address]Result Comment: Corrected result: Previously reported as 75 % on 05/19/2024 at 6:29 AM EST.Performed By: #### CCDIONICIO, [id number], [id number] ####[facility] LABCLIA [id number] [address] [address] [place] AMERICAMACRO%, BF4 %Ovc12-04RdlahgvsyPromedica Fostoria Community HospitalComment on above:Order Comment: Specimen Type: FLUID SPECIMENOrdering Facility: [facility] Address:[address] [place], [place] [address]Performed By: #### CCDIONICIO, [id number], [id number] ####[facility] LABCLIA [id number] [place] [address] [place] AMERICANEUT%, BF14 %High0-1 [facility] Community HospitalComment on above:Order Comment: Specimen Type: FLUID SPECIMENOrdering Facility: [facility] Address:[address] [place], [place] [address]Performed By: #### CCBF, [id number], [id number] ####[facility] LABCLIA [id number] [place] [address] [place] AMERICAREAC LYMPH %, BFNormalCUniversity Hospitals Cleveland [facility] Comment on above:Order Comment: Specimen Type: FLUID SPECIMENOrdering Facility: [facility] Address:[address] [place], [place] [address]Result Comment: Corrected result: Previously reported as 5 % on 05/19/2024 at 6:29 AM EST.Performed By: #### CCBF, [id number], [id number] ####[facility] LABCLIA [id number] [place] [id number] [place] OF [facility]ST CAMPUSMicroorganism Spec Culton 33-99-9507Neeiukrxhvano identified Cx Nom (Unsp spec)CULTURE, AFB: No Acid Fast Bacilli isolated after 42 days AFB STAIN: No acid fast bacilli seen by fluorochrome stainNormalCUniversity Hospitals Cleveland [facility] Comment on above:Performed By: #### 611-4, 41658-1 ####[facility] LABIA [id number] [address]PH PLEURAL FLUID (FOR USE OUTSIDE OF [facility])on 20-51-9720oE (Body fld)7.9 [pH]NormalPromedica Fostoria Community HospitalComment on above:Order Comment: Specimen Type: FLUID SPECIMENOrdering Facility: [facility] Address:[address] [place], [place] [address]Result Comment: No reference range has been established for this specimen type.This test was developed, and its performance characteristics determined by the [facility] Department of Pathology and Laboratory Medicine. It has not been cleared or approved by the FDA. The [facility] Department of Pathology and Laboratory Medicine is regulated under CLIA as qualified to perform high-comple xity testing. This test is used for clinical purposes. It should not be regarded as investigationalor for research.Performed By: #### [id number] ####[facility] LABIA [id number] [address] [address] [facility] CAMPUSProt Fld-mCncon 80-57-1837Opgbtzs (Body fld) [Mass/Vol]2.2 g/dLNormalSee CommentMartin Memorial Hospital on above: Order Comment: Specimen Type: FLUID SPECIMENOrdering Facility: [facility] Address:[address] [place], [place] [address]Result Comment: Serous fluids: Effusions are the accumulation [...] document C49A. RAJEEV Bui: Clinical Laboratory Standards [place]: 2007.Performed By: #### 2344-0, 2529-6, 2881-1, 18842-1, 57452-1, 1747-5 ####[facility] LABCLIA [id number] [address] [address] [place] OF AMERICATrigl Fld-mCncon 05-18-2024 Triglyceride (Body fld) [Mass/Vol]13 mg/dLNormalCUniversity Hospitals [facility] Medical Center Comment on above:Order Comment: Specimen Type: FLUID SPECIMENOrdering Facility: [facility] Address:[address] [place], [place] [address]Result Comment: Synovial fluids: Synovial fluid triglycerides measurement [...] document C49A. RAJEEV Bui: Clinical Laboratory Standards [place]; 2007.Performed By: #### 2344-0, 2529-6, 2881-1, 57541-3, 02820-1, 1747-5 ####[facility] LABCLIA [id number] [address] [address] [place] OF AMERICAXR CHEST 2V FRONTAL/LATon 57-76-0368MH CHEST 2V FRONTAL/LATNoBarnesville Hospital XR Chest PA and Lateralon 41-17-6795JNDYLAJNBK: Slight decrease in the right pleural effusion.. Manager Clinical Services: ALONSO Transcribe Date/Time: May 18 2024 1:40P Dictated by : REBECCA LOVELACE MD This examination was interpreted and the report reviewed and electronically signed by: REBECCA LOVELACE MD on May 18 2024 1:46PM [facility] DIVISION OF RADIOLOGY* * *Final [...] noted in the thoracic spine. DIVISION OF RADIOLOGYProvipeoples hospital, [facility] - 05/18/2024 * * *Final Report* * [...] Slight decrease in the right pleural effusion.. Manager Clinical Services: ALONSO Transcribe Date/Time: May 18 2024 1:40P Dictated by : REBECCA LOVELACE MD This examination was interpreted and the report reviewed and electronically signed by: REBECCA LOVELACE MD on May 18 2024 1:46PM EST [facility] observation (narrative)[facility] Chest PA and LateralOrdered By: Ccf Provider on 35-50-0407Fwxbjmosb ClinicANES POSTPROC EVALon 32-49-5193MAZR POSTPROC EVALHNO ID: [id number] Author: STEVEN DONNELLY MD Service: Anesthesiology Author Type: Anesthesiologist Type: Anesthesia Postprocedure Evaluation Filed: 04/28/2024 16:14 Note Text: POST ANESTHESIA EVALUATION NOTE : 1950 Procedure Summary Date: 04/28/24 Room / Location: [facility] - ENDO Anesthesia Start: 1129 Anesthesia Stop: 1210 Procedures: EGD DIAGNOSTIC COLONOSCOPY DIAGNOSTIC Diagnosis: Diarrhea, unspecified type Scheduled Providers: Vic Ponce MD; Steven Donnelly I, MD; Julian Batista APRN.UROLOGIST PHYSICIAN Responsible Provider: Steven Donnelly I, MD Anesthesia [...] April 28, 2024 TIME: 4:14 PM CSN: [id number] PRE-OPon 20-82-6520DWTU PRE-OPHNO ID: [id number] Author: STEVEN DONNELLY MD Service: Anesthesiology Author Type: Anesthesiologist Type: Anesthesia Preprocedure Evaluation Filed: 04/28/2024 11:18 Note Text: ANESTHESIOLOGY DAY OF SURGERY NOTE : 1950 Procedure Information Date/Time: 04/28/24 1230 Scheduled providers: Vic Ponce MD; Steven Donnelly I, MD; Julian Batista APRN.UROLOGIST PHYSICIAN Procedures: EGD DIAGNOSTIC COLONOSCOPY DIAGNOSTIC Location: [facility] - ENDO Estimated body mass index [...] and consent discussed: yes. Patient / Responsible Democrat agrees to proceed: yes Patient / Surrogate agrees to blood products: blood products not planned DNR status not reviewed with patient and/or family prior to surgery. Significant changes in the patient condition since the History and Physical, not otherwise documented in primary service progress note: no. No vitals data found for the desired time range. Outpatient Medications as of 04/28/2024 Medication Sig - GZSCTDV-KSYPDCWYO-GKRU ORAL Take by mouth. - iv contrast [...] April 28, 2024 TIME: 11:17 AM CSN: [id number] [facility] Hospital PRE-OPNormalPromedica Fostoria Community HospitalColonoscopyon 82-88-2345CihxkauhkmnKdxkbefs Hosptial Gastrointestinal Endoscopy Patient Name: Sva Raymundo Procedure Date: 04/28/2024 11:16 AM Date of : 1950 Admit Type: Outpatient Age: 74 Room: [place] [address] Gender: Male Note Status: Finalized Attending MD: Vic Ponce MD, [id number] Procedure: Colonoscopy Indications: Chronic diarrhea Comorbidities Patient with chronic right pleural effusion unknown etiology/origin with N,V, diarrhea and weight loss. Providers: iVc Ponce MD, Riley Almonte, RN, Abbie Ivey, [...] physician, the nurse, the anesthesiologist and the community health advisor in the procedure room at 11:29 AM. [...] prior dose. Procedure Code(s): --- Professional --- 58949, Colonoscopy, flexible; with biopsy, single or multiple Diagnosis Code(s): --- Professional --- K52.9, Noninfective gastroenteritis and colitis, unspecified CPT copyright 2020 [employer]. All rights reserved. The codes documented in this report are preliminary and upon manager area review may be revised to meet current compliance requirements. Attending Participation: I personally performed the entire procedure. Scope In: 11:48:20 AM Scope Out: 11:55:18 AM (more content not included)...[facility] Colonoscopy studyon 87-20-4131Kqxbocem Hosptial Gastrointestinal Endoscopy Patient Name: Sav Raymundo Procedure Date: 04/28/2024 11:16 AM Date of : 1950 Admit Type: Outpatient Age: 74 Room: [place] [address] Gender: Male Note Status: Finalized Attending MD: Vic Ponce MD, [id number] Procedure: Colonoscopy Indications: Chronic diarrhea Comorbidities Patient [...] physician, the nurse, the anesthesiologist and the community health advisor in the procedure room at 11:29 AM. [...] inflammation, mass, polyps, s (more content not included)...PROVATIONTrinity Health System Twin City Medical CenterRadiology Study observation (narrative)[facility] Study observation Narrativeon 19-62-2760Dcgmchpq Hosptial Gastrointestinal Endoscopy Patient Name: Sav Raymundo Procedure Date: 04/28/2024 11:17 AM Date of : 1950 Admit Type: Outpatient Age: 74 Room: [place] [address] Gender: Male Note Status: Finalized Attending MD: Vic Ponce MD, [id number] Procedure: Upper GI endoscopy Indications: Dysphagia, Heartburn, Nausea with vomiting Providers: Vic Ponce MD, Riley Almonte, EVAN, Abbie Ivey, EVAN, Adri Bradley [...] physician, the nurse, the anesthesiologist and the community health advisor in the procedure room at 11:29 AM. [...] from the incisors. T (more content not included)...PROVATIONTrinity Health System Twin City Medical CenterRadiology Study observation (narrative)[facility] PHYSICALon 25-62-0177TJKVHGA PHYSICALHNO ID: [id number] Author: VIC PONCE MD Service: Gastroenterology Author [...] Plan: MAC Additional Comments: None Vic Ponce MDMassachusetts Eye & Ear InfirmaryNCOLORADO [facility] PROGon 67-33-0656VJDLARD PROG HNO ID: [id number] Author: JAHAIRA HOOD, EVAN Service: Nursing Author [...] REFERRAL (RECOMMENDATION): None Electronically Signed By: Jahaira CristobalTobey Hospital HNO ID: [id number] Author: MAUREEN LAUGHLIN RN Service: ? Author [...] REFERRAL (RECOMMENDATION): None Electronically Signed By: Maureen LaughlinCambridge Hospital PRO NormalProvidence HospitalGICMI PATHOLOGYon 52-03-4657JRQM REPORTNoSpaulding Rehabilitation HospitalComment on above:Order Comment: Specimen Type: TISSUE SPECIMEN [facility] Address: [address] [place] [address]Rzbtyc Comment: Surgical Pathology Report Case: [id number] Authorizing Provider: Vic Ponce MD Collected: 04/28/2024 11:37 AM Ordering Location: [facility] Received: 04/28/2024 01:31 PM Endoscopy - ENDO Pathologist: Simba Frias MD, PhD Specimens: A) - Small Bowel, Duodenum, Biopsy B) - Stomach, Biopsy C) - Stomach, Polyp, Biopsy D) - Esophagus, Biopsy E) - Small Bowel, Ileum, Biopsy F) - Colon, Biopsy, random colonPerformed By: #### S #### [facility] CLIA [id number] [address] [place] [address] STATES OF AMERICADIAGNOSIS COMMENTComment F: This pattern [...] should be of value in this differential. NormalCurahealth - BostonComment on above:Order Comment: Specimen Type: TISSUE SPECIMEN [facility] Address: [address] [place], [place] [address]Performed By: #### S #### [facility] CLIA [id number] [address] [place] [address] [place] OF AMERICAFINAL DIAGNOSISNormal [facility] BostonComment on above:Order Comment: Specimen Type: TISSUE SPECIMEN [facility] Address: [address] [place], [place] [address]Result Comment: A. Duodenum, biopsy: -Duodenal mucosa with [...] #### [facility] CLIA [id number] [address] [place] [address] LABNoBoston Sanatorium on above:Order Comment: Specimen Type: TISSUE SPECIMEN [facility] Address: [address] [place], [place] [address]Result Comment: Diagnostic interpretation performed at [facility], [address] [place], [place] [id number] CLIA# [id number] [employer]icker [employer] Sorter Load And Unload: Ramos Strickland M.D.Performed By: #### S #### [facility] CLIA [id number] [address] [place] [address] on above:Order Comment: Specimen Type: TISSUE SPECIMEN [facility] Address: [address] [place], [place] [address]Result Comment: A. Small Bowel, Duodenum, Biopsy Received [...] 2024 5:43 PM Gross examination performed at [facility], [address] [place], [place] [address]Performed By: #### S #### [facility] CLIA [id number] [address] [place] [id number] GI endoscopy 44-25-5204Slzua GI endoscopyBerkshire Medical Center Gastrointestinal Endoscopy Patient Name: Sav Raymundo Procedure Date: 04/28/2024 11:17 AM Date of : 1950 Admit Type: Outpatient Age: 74 Room: [place] [address] Gender: Male Note Status: Finalized Attending MD: Vic Ponce MD, [id number] Procedure: Upper GI endoscopy Indications: Dysphagia, Heartburn, [...] physician, the nurse, the anesthesiologist and the community health advisor in the procedure room at 11:29 AM. [...] home (ambulatory). Procedure Co (more content not included)...NormalCurahealth - BostonNo Panel Informationon 85-99-1393Txfpbkltm ClinicCT ENTEROGRAPHY W IVCONon 49-61-2501XK ENTEROGRAPHY W IVCONNormalOhioHealth [facility] Small bowel W contrast PO and W contrast Scarlett 67-55-3192OSXLZBGXLO: No active bowel inflammation. Small volume ascites and small right pleural effusion, both increased since 12/20/2023. Manager Clinical Services: ALONSO Transcribe Date/Time: Apr 22 2024 12:06P Dictated by : MILDRED GRANDA MD This examination was interpreted and the report reviewed and electronically signed by: MILDRED GRANDA MD on Apr 22 2024 12:24PM [facility] DIVISION OF RADIOLOGY* * *Final [...] pleural catheter in place. DIVISION OF RADIOLOGYProvider, [facility] - 04/22/2024 * * *Final Report* * * DATE OF EXAM: Apr 22 2024 11:45AM M2 0545 - CT ENTEROGRAPHY W IVCON / [...] right pleural effusion, both increased since 12/20/2023. Manager Clinical Services: PSCB Transcribe Date/Time: Apr 22 2024 12:06P Dictated by : MILDRED GRANDA MD This examination was interpreted and the report reviewed and electronically signed by: MILDRED GRANDA MD on Apr 22 2024 12:24PM [facility] CenterRadiology Study observation (narrative)[facility] Small bowel W contrast PO and W contrast IVOrdered By: Ccf Provider on 04-22-2024 [facility] CenterCalprotectin (Stl) [Mass/Mass]on 59-55-5742DLAYLFSRUETL, FECAL MEFTUTEHRFPW91.0 ug/gHighNINF - 50 ug/gCleveland ClinicInterpretation and review of laboratory resultsAbnormalCleveland Regency Hospital CompanyG. lamblia+Cryptosporidium sp Ag IA Ql (Stl)Ordered By: Bobby Mccallum on 76-31-4891Wcedodyxrrylbfs sp Ag Ql (Stl)NegativeNegativeTrinity Health System Twin City Medical CenterG. lamblia Ag Ql (Stl)NegativeNegativeTrinity Health System Twin City Medical CenterInterpretation and review of laboratory resultsNormalCDiley Ridge Medical CenterA single negative test result does not rule out a parasitic infection. Due to intermittent sheddingof parasites, it is recommended that three specimens collected over a 7 day period are submitted to improve detection sensitivity. [facility] OhioGastrointestinal pathogens identified BRYN+probe Nom (Stl)Ordered By: Steven Olsen on 22-62-0512Aovohfrppqsof sp DNA BRYN+probe Nom (Unsp spec)Not detectedNot DetectedSalt Lake City ClinicInterpretation and review of laboratory resultsNormalCKindred Hospital Daytonalmonella sp DNA BRYN+probe Ql (Unsp spec)Not detectedNot DetectedGreen Cross Hospitalhiga toxin stx gene BRYN+probe Nom (Unsp spec)Not detectedNot DetectedGreen Cross Hospitalhigella sp DNA BRYN+probe Ql (Unsp spec)Not detectedNot DetectedSelect Medical Specialty Hospital - Southeast OhioLaboratory - Microbiology and Antimicrobial susceptibilityon 04-21-2024M. tuberculosis tuberculin stim IFN-g Ql (Bld)NegativeTrinity Health System Twin City Medical CenterNo Panel Informationon 10-32-9222PICAUVAZ INTERPRETATIONNormalNormalCDiley Ridge Medical Center ELASTASE-1 GXHBMNPMBYPIN176 ug/g200 - PINF ug/gCleveland ClinicComment on above: Interpretation: <100 ug/g: Severe Exocrine Pancreatic Insufficiency 100-199 ug/g: Mild to Moderate Exocrine Pancreatic Insufficiency >=200 ug/g: Normal Interpretation and review of laboratory resultsNormalCSelect Medical Cleveland Clinic Rehabilitation Hospital, BeachwoodMitogen minus Nil1.19- PINFCleveland ClinicTB Gamma Interpretation Infection with M. tuberculosis complex is unlikely. If latent tuberculosis infection is highly suspected, a negative result does not rule out the infection. Specimens from immunocompromised patients and those <5 years of age may show false negative results. In case of a contact investigation, please repeat 8-12 weeks after a known exposure.[facility] CenterTB NilNINFTrinity Health System Twin City Medical CenterTB1 Ag minus NilNINFTrinity Health System Twin City Medical CenterTB2 Ag minus Nil0.00NIBlanchard Valley Health [facility]25([place])D3 SerPl-mCncon 193490-vzesigunqzsfuv D3 [Mass/Vol]36.6 ng/eIJauiez62.0-80.0[facility] on above: Order Comment: Specimen Type: BLOOD SPECIMENOrdering Facility: [facility] Address:[address] [place], [place] [address]Result Comment: Classification of 25 [place] Vitamin D status:Deficiency/Insufficiency: < or = 30 ng/ml.Sufficiency/Optimal Levels: 31-80 ng/mLToxicity: > 100 ng/mL.Test performed by chemiluminescent immunoassay.Performed By: #### 1989-3 ####[facility] LABCLIA [id number] [place] [address] [place] BGFDTLJ87-shtqwycwvbeiwm D3 [Mass/Vol]on 83-71-6419Uhdxblqdvmfxeh and review of laboratory resultsNoalCDiley Ridge Medical Center The reference range interval was based on an analysis of samples from healthy adults and may not pertain to children from 0-18 years old. [facility]ike Community HospitalOOD TB SCREENon 04-20-2024M. tuberculosis tuberculin stim IFN-g Ql (Bld)NegativeNormalCUC Medical Center on above:Order Comment: Specimen Type: BLOOD SPECIMENOrdering Facility: [facility] Address:[address] [place], [place] [address]Performed By: #### INFTBP ####[facility] LABCLIA [id number] [place] [address] [place] AMERICAMITOGEN MINUS NIL1.19 IU/mLNormal>=0.50[facility] on above:Order Comment: Specimen Type: BLOOD SPECIMENOrdering Facility: [facility] Address:[address] [place], [place] [address]Performed By: #### INFTBP ####[facility] LABCLIA [id number] [place] [address] [place] AMERICATB GAMMA INTERPRETATIONNormal [facility] on above:Order Comment: Specimen Type: BLOOD SPECIMENOrdering Facility: [facility] Address:[address] [place], [place] [address]Performed By: #### INFTBP ####[facility] LABCLIA [id number] [place] [address] [place] AMERICATB NIL<0.00Normal<=8.00[facility] on above:Order Comment: Specimen Type: BLOOD SPECIMENOrdering Facility: [facility] Address:[address] [place], [place] [address]Performed By: #### INFTBP ####[facility] LABCLIA [id number] [place] [address] [place] AMERICATB1 AG MINUS NIL<0.00Normal<0.35 [facility] on above:Order Comment: Specimen Type: BLOOD SPECIMENOrdering Facility: [facility] Address:[address] [place], [place] [address]Performed By: #### INFTBP ####[facility] LABCLIA [id number] [place] [address] [place] AMERICATB2 AG MINUS NIL0.00 IU/mLNormal<0.35[facility] on above:Order Comment: Specimen Type: BLOOD SPECIMENOrdering Facility: [facility] Address:[address] [place], [place] [address]Performed By: #### INFTBP ####[facility] [id number] [place] [address] [place] [facility] diff Tox gens Stl Ql BRYN+probeon 04-20-2024. difficile toxin genes BRYN+probe Ql (Stl)NegativeNormal Negative for C. difficile toxin by PCRMartin Memorial Hospital on above:Order Comment: Specimen Type: STOOL SPECIMENOrdering Facility: [facility] Address:[address] [place], [place] [address]Performed By: #### 00344-8, 86494-6, PANCEF ####[facility] [id number] [address] STATES [place] C. difficile toxin genes BRYN+probe Ql (Stl)on 94-85-4376Nyuptkpxhgjhlj and review of laboratory resultsNormalCleveland [facility] W Auto Differential panel (Bld)on 32-34-3373Mbzfdvdtq (Bld) [#/Vol]0.04 10*3/uLNINF [facility] CenterBasophils/100 WBC (Bld)0.5 %[facility] CenterDifferential cell count method Nom (Bld)AutoCleveland ClinicEosinophils (Bld) [#/Vol]NINFCleveland ClinicEosinophils/100 WBC (Bld)0.0 %[facility] CenterErythrocyte distribution width (RBC) [Ratio]14.7 %11.5 - 15.0 %[facility] Medical CenterHematocrit (Bld) [Volume fraction]38.0 %Low39.0 - 51.0 %[facility] Medical CenterHemoglobin (Bld) [Mass/Vol]12.0 g/dLLow13.0 - 17.0 g/dLTrinity Health System Twin City Medical CenterImmature granulocytes (Bld) [#/Vol]0.03 10*3/uLNINFTrinity Health System [facility] City Medical CenterImmature granulocytes/100 WBC (Bld)0.4 %[facility] CenterInterpretation and review of laboratory resultsAbnormalClevelKettering Health Greene Memorial Lymphocytes (Bld) [#/Vol]0.95 10*3/uLLowTrinity Health System Twin City Medical CenterLymphocytes/100 WBC (Bld)11.9 %[facility]tering Health DaytonH (RBC) [Entitic mass]30.5 pg26.0 - 34.0 pg [facility]tering Health DaytonHC (RBC) [Mass/Vol]31.6 g/dL30.5 - 36.0 g/dLTr[facility] Health System [facility] Center MCV (RBC) [Entitic vol]96.7 fL80.0 - 100.0 fLCDiley Ridge Medical CenterMonocytes (Bld) [#/Vol]1.03 10*3/uLHighNINFTrinity Health System [facility] City Medical CenterMonocytes/100 WBC (Bld)12.9 % [facility] Medical CenterNeutrophils (Bld) [#/Vol]5.91 10*3/uLTrinity Health System [facility] Neutrophils/100 WBC (Bld)74.3 %[facility] CenterNucleated RBC (Bld) [#/Vol]NINF [facility] CenterNucleated RBC/100 WBC (Bld) [Ratio]0.0 %/100 WBCTrinity Health System [facility] Medical Center Platelet mean volume (Bld) [Entitic vol]11.1 fL9.0 - 12.7 fLCDiley Ridge Medical Center Platelets (Bld) [#/Vol]267 10*3/uLTrinity Health System Twin City Medical CenterRBC (Bld) [#/Vol]3.93 10*6/uL Low4.20 - 6.00 m/[facility]-FairhillWBC (Bld) [#/Vol]7.96 10*3/uLPromedica Fostoria Community Hospital ClinicBasophils (Bld) [#/Vol]0.04 10*3/uLNormal<0.11CUniversity Hospitals Cleveland Medical CenterComment on above:Order Comment: Specimen Type: BLOOD SPECIMENOrdering Facility: [facility] Address:[address] [place], [place] [address]Performed By: #### 69797-7 ####[facility] LABCLIA [id number] [place] [address] [place] Basophils/100 WBC (Bld)0.5 %NormalMartin Memorial Hospital on above: Order Comment: Specimen Type: BLOOD SPECIMENOrdering Facility: [facility] Address:[address] [place], [place] [address]Performed By: #### 31051- 8 ####[facility] LABCLIA [id number] [place] [address] [place] AMERICADifferential cell count method Nom (Bld)AutoNormalCUC Medical Center on above:Order Comment: Specimen Type: BLOOD SPECIMENOrdering Facility: [facility] Address:[address] [place], [place] [address]Performed By: #### 97944-2 ####[facility] LABCLIA [id number] [place] [address] [place] AMERICAEosinophils (Bld) [#/Vol]10*3/uL Normal<0.46[facility] on above:Order Comment: Specimen Type: BLOOD SPECIMENOrdering Facility: [facility] Address:[address] [place], [place] [address]Performed By: #### 28424-0 ####[facility] LABCLIA [id number] [place] [address] [place] [facility] WEST CAMPUSEosinophils/100 WBC (Bld)0.0 %NormalMartin Memorial Hospital on above:Order Comment: Specimen Type: BLOOD SPECIMENOrdering Facility: [facility] Address:[address] [place], [place] [address]Performed By: #### 83096-6 ####[facility] LABCLIA [id number] [place] [address] [place] Erythrocyte distribution width (RBC) [Ratio]14.7 %Adtjcd90.5-15.0[facility] on above:Order Comment: Specimen Type: BLOOD SPECIMENOrdering Facility: [facility] Address:[address] [place], [place] [address]Performed By: #### 49208-3 ####[facility] LABCLIA [id number] [place] [address] [place] AMERICAHematocrit (Bld) [Volume fraction]38.0 %Low39.0-51.0Martin [facility] on above:Order Comment: Specimen Type: BLOOD SPECIMENOrdering Facility: [facility] Address:[address] [place], [place] [address]Performed By: #### 03051-5 ####[facility] LABIA [id number] [place] [address] [place] Hemoglobin (Bld) [Mass/Vol]12.0 g/dLLow13.0-17.0[facility] Comment on above:Order Comment: Specimen Type: BLOOD SPECIMENOrdering Facility: [facility] Address:[address] [place] [address] Performed By: #### 69635-5 ####[facility] LABIA [id number] [place] [address] [place] Immature granulocytes (Bld) [#/Vol]0.03 10*3/uLNormal<0.10[facility] on above:Order Comment: Specimen Type: BLOOD SPECIMENOrdering Facility: [facility] Address:[address] [place], [place] [address]Performed By: #### 75614-0 ####[facility] LABCLIA [id number] [place] [address] [place] Immature granulocytes/100 WBC (Bld)0.4 %NormalMartin [facility] on above:Order Comment: Specimen Type: BLOOD SPECIMENOrdering Facility: [facility] Address:[address] [place] [address] Performed By: #### 68889-6 ####[facility] LABIA [id number] [place] [address] [place] Lymphocytes (Bld) [#/Vol]0.95 10*3/uLLow1.00-4.00[facility] Comment on above:Order Comment: Specimen Type: BLOOD SPECIMENOrdering Facility: [facility] Address:[address] [place] [address] Performed By: #### 90793-9 ####[facility] LABCLIA [id number] [place] [address] [place] Lymphocytes/100 WBC (Bld)11.9 %NormalMartin [facility] on above: Order Comment: Specimen Type: BLOOD SPECIMENOrdering Facility: [facility] Address:[address] [place], [place] [address]Performed By: #### 66631- 8 ####[facility] LABCLIA [id number] (RBC) [Entitic mass]30.5 pg Khfzvd99.0-34.0[facility] on above:Order Comment: Specimen Type: BLOOD SPECIMENOrdering Facility: [facility] Address:[address] [place], [place] [address]Performed By: #### 29814-5 ####[facility] LABCLIA [id number] [address]ETMCHC (RBC) [Mass/Vol]31.6 g/dL Pklpmh56.5-36.0[facility] on above:Order Comment: Specimen Type: BLOOD SPECIMENOrdering Facility: [facility] Address:[address] [place], [place] [address]Performed By: #### 99877-1 ####[facility] LABCLIA [id number] [address]ETV (RBC) [Entitic vol]96.7 fL Wfyyoi60.0-100.0[facility] on above:Order Comment: Specimen Type: BLOOD SPECIMENOrdering Facility: [facility] Address:[address] [place], [place] [address]Performed By: #### 94792-3 ####[facility] LABCLIA [id number] [place] [address] [place] AMERICAMonocytes (Bld) [#/Vol]1.03 10*3/uLHigh<0.87[facility] on above:Order Comment: Specimen Type: BLOOD SPECIMENOrdering Facility: [facility] Address:[address] [place], [place] [address]Performed By: #### 61388-4 ####[facility] LABCLIA [id number] [place] [address] [place] AMERICAMonocytes/100 WBC (Bld)12.9 % NormalMartin [facility] on above:Order Comment: Specimen Type: BLOOD SPECIMENOrdering Facility: [facility] Address:[address] [place], [place] [address]Performed By: #### 71566-7 ####[facility] LABCLIA [id number] [place] [address] [place] AMERICANeutrophils (Bld) [#/Vol]5.91 10*3/uLNormal1.45-7.50[facility] on above:Order Comment: Specimen Type: BLOOD SPECIMENOrdering Facility: [facility] Address:[address] [place], [place] [address]Performed By: #### 90601-8 ####[facility] LABCLIA [id number] [place] [address] [place] AMERICANeutrophils/100 WBC (Bld)74.3 %NormalMartin [facility] on above:Order Comment: Specimen Type: BLOOD SPECIMENOrdering Facility: [facility] Address:[address] [place] [address] Performed By: #### 32221-9 ####[facility] LABCLIA [id number] [place] [address] [place] Nucleated RBC (Bld) [#/Vol]10*3/uLNormal<0.01[facility] on above:Order Comment: Specimen Type: BLOOD SPECIMENOrdering Facility: [facility] Address:[address] [place] [address] Performed By: #### 32175-4 ####[facility] LABCLIA [id number] [place] [address] [place] Nucleated RBC/100 WBC (Bld) [Ratio]0.0 /100 WBCNormalCUniversity Hospitals [facility] Comment on above:Order Comment: Specimen Type: BLOOD SPECIMENOrdering Facility: [facility] Address:[address] [place] [address] Performed By: #### 04767-3 ####[facility] LABIA [id number] [place] [address] [place] Platelet mean volume (Bld) [Entitic vol]11.1 fLNormal9.0-12.7[facility] on above:Order Comment: Specimen Type: BLOOD SPECIMENOrdering Facility: [facility] Address:[address] [place], [place] [address]Performed By: #### 91938-8 ####[facility] LABIA [id number] [place] [address] [place] Platelets (Bld) [#/Vol]267 10*3/mJCzyysg846-512AxyjkdotoMartin [facility] on above:Order Comment: Specimen Type: BLOOD SPECIMENOrdering Facility: [facility] Address:[address] [place] [address] Performed By: #### 22345-7 ####[facility] LABCLIA [id number] [place] [address] [place] RBC (Bld) [#/Vol]3.93 10*6/uLLow4.20-6.00[facility] on above:Order Comment: Specimen Type: BLOOD SPECIMENOrdering Facility: [facility] Address:[address] [place], [place] [address]Performed By: #### 19595-6 ####[facility] LABCLIA [id number] [place] [address] [place] AMERICAWBC (Bld) [#/Vol]7.96 10*3/uLNormal3.70-11.00[facility] on above:Order Comment: Specimen Type: BLOOD SPECIMENOrdering Facility: [facility] Address:[address] [place], [place] [address]Performed By: #### 84324-1 ####[facility] LABCLIA [id number] [address]ETCELIAC SCREENon 32-46-8908ZICCW DEAMIDATED IGA QUALNegativeNormalNegative, Test not IndicatedMartin [facility] on above:Order Comment: Specimen Type: BLOOD SPECIMENOrdering Facility: [facility] Address:[address] [place], [place] [address]Result Comment: This is used as an aid in diagnosis of celiac disease. Clinical correlation is required.The following results were obtained with an [employer] QUANTA Lite Gliadin IgA SALBADOR Gliadin. Gliadin IgA values obtained with different manufacturers' assay methods may not be used interchangeably. The magnitude of the reported IgA levels cannot be correlated to an endpoint titer. Performed By: #### [id number] ####[facility] LABCLIA [id number] [address] [place] Gliadin peptide IgA Qn (S)4 UnitsNormal<20[facility] on above:Order Comment: Specimen Type: BLOOD SPECIMENOrdering Facility: [facility] Address:[address] [place], [place] [address]Performed By: #### [id number] ####[facility] LABCLIA [id number] [address], [place] [address] [place] AMERICAINTERPRETATIONNo serological evidence of celiac disease, however, if celiac disease is clinically suspected and patient is not on gluten-free diet, histological diagnosis may be considered. HLA testing may help with risk assessment.NormalMartin [facility] on above:Order Comment: Specimen Type: BLOOD SPECIMENOrdering Facility: [facility] Address:[address] [place], [place] [address]Performed By: #### [id number] ####[facility] LABCLIA [id number] [address] [place] TRANSGLUTAMINASE IGA ABS INTERPRETATIONNegativeNormalNegativeMartin [facility] on above:Order Comment: Specimen Type: BLOOD SPECIMENOrdering Facility: [facility] Address:[address] [place], [place] [address]Result Comment: The following results were obtained with [employer] GroupA NuORDERe R h-tTG IgA SALBADOR.???R h-tTG IgA values obtained with different manufacturers' assay methods may not be used interchangeably. The magnitude of the reported IgA levels cannot be corelated to an endpoint???concentration.This is used as an aid in diagnosis of celiac disease. Clinical correlation is required.Performed By: #### [id number] ####[facility] LABCLIA [id number] [place] [address] [place] AMERICAtTG IgA Qn (S)<2Normal <4ClevelTrinity Health System West Campus on above:Order Comment: Specimen Type: BLOOD SPECIMENOrdering Facility: [facility] Address:[address] [place], [place] [address]Performed By: #### [id number] ####[facility] LABCLIA [id number] [place] [address] [place] AMERICACRP SerPl-mCncon 64-72-7298QVB [Mass/Vol]8.4 mg/dLHigh<0.9ClevelTrinity Health System West Campus on above:Order Comment: Specimen Type: BLOOD SPECIMENOrdering Facility: [facility] Address:[address] [place], [place] [address]Performed By: #### 1988-5, 77425-7, 3034-6, 26190-6 ####[facility] LABCLIA [id number] [place] [address] [place] AMERICACalprotectin (Stl) [Mass/Mass]on 99-20-0010MVJFFTQDDEFO, FECAL TNNQIYXWQBTT35.0 ug/gHigh<50[facility] HospitalComment on above:Order Comment: Specimen Type: STOOL SPECIMENOrdering Facility: [facility] Address:[address] [place], [place] [address]Performed By: #### 90290-5, 92126-7, PANCEF ####[facility] LABCLIA [id number] [address] [place] AMERICACobalamin (Vitamin B12) [Mass/Vol]on 18-65-8703Zquuhndholojho and review of laboratory resultsAbnormalCleveland [facility] Comprehensive metabolic 2000 panelon 83-29-2534Vatfaio [Mass/Vol]3.8 g/dLLow3.9 - 4.9 g/dLSalt Lake City ClinicALP [Catalytic activity/Vol]141 U/LHigh38 - 113 U/L [facility] ClinicALT [Catalytic activity/Vol]14 U/L10 - 54 U/LCleveland [facility] Anion gap [Moles/Vol]15 mmol/L8 - 15 mmol/LCleveland ClinicAST [Catalytic activity/Vol]27 U/L14 - 40 U/LCleveland ClinicBilirubin [Mass/Vol]0.9 mg/dL0.2 - 1.3 mg/dLSalt Lake City ClinicCalcium [Mass/Vol]9.1 mg/dL8.5 - 10.2 mg/dLSalt Lake City ClinicChloride [Moles/Vol]101 mmol/L98 - 107 mmol/LCleveland ClinicCO2 [Moles/Vol]24 mmol/L22 - 30 mmol/LCleveland ClinicCreatinine [Mass/Vol]1.23 mg/dLHigh0.73 - 1.22 mg/dLTrinity Health System Twin City Medical CenterGFR/1.73 sq M.predicted among non- blacks MDRD (S/P/Bld) [Vol rate/Area]62 mL/min/{1.73_m2}- PINCleveland Clinic [facility] Comment on above:Estimated Glomerular Filtration Rate [...] not accurately reflect actual GFR.Glucose [Mass/Vol] 105 mg/kLMlkz41 - 99 mg/dLTrinity Health System Twin City Medical CenterComment on above:The English Diabetes Association (ADA) provides guidance for cutoff [...] Standards of Medical Care in Diabetes 2016, English Diabetes Association. Diabetes Care. 2016.39(Suppl 1). Potassium [Moles/Vol]3.9 mmol/L3.7 - 5.1 mmol/LCshelby memorial hospital ClinicProtein [Mass/Vol]7.2 g/dL6.3 - 8.0 g/dLGreen Cross Hospitalodium [Moles/Vol]140 mmol/L136 - 144 mmol/LCDiley Ridge Medical CenterUrea nitrogen [Mass/Vol]15 mg/dL9 - 24 mg/dL Summa Healthbumin [Mass/Vol]3.8 g/dLLow3.9-4.9ClevelFirstHealth Moore Regional Hospital Comment on above:Order Comment: Specimen Type: BLOOD SPECIMENOrdering Facility: [facility] Address:[address] [place] [id number] Performed By: #### 1988-5, 09414-0, 3034-6, 73331-9 ####[facility] LABCLIA [id number] [place] [address] [place] AMERICAALP [Catalytic activity/Vol]141 U/IOshb99-826BmgqclyfgMartin [facility] on above:Order Comment: Specimen Type: BLOOD SPECIMENOrdering Facility: [facility] Address:[address] [place], [place] [address]Performed By: #### 1987-10, , 3033-11, ####[facility] LABCLIA [id number] [place] [address] [place] AMERICAALT [Catalytic activity/Vol]14 U/FUpkpst42-75HuzqeplvkMartin [facility] on above:Order Comment: Specimen Type: BLOOD SPECIMENOrdering Facility: [facility] Address:[address] [place], [place] [address]Performed By: #### 1987-10, , 3033-11, ####[facility] LABCLIA [id number] [place] [address] [place] AMERICAAnion gap [Moles/Vol]15 mmol/L Normal8-15[facility] on above:Order Comment: Specimen Type: BLOOD SPECIMENOrdering Facility: [facility] Address:[address] [place], [place] [address]Performed By: #### 1987-10, , 3033-11, ####[facility] LABCLIA [id number] [place] [address] [place] AMERICAAST [Catalytic activity/Vol]27 U/XEdpcus55-38LaagzaqbeMartin [facility] on above:Order Comment: Specimen Type: BLOOD SPECIMENOrdering Facility: [facility] Address:[address] [place], [place] [address]Performed By: #### , , 3033-11, ####[facility] LABCLIA [id number] [address] [place] Bilirubin [Mass/Vol]0.9 mg/dLNormal0.2-1.3[facility] on above:Order Comment: Specimen Type: BLOOD SPECIMENOrdering Facility: [facility] Address:[address] [place], [place] [address]Performed By: #### 1987-10, , 3033-11, ####[facility] LABCLIA [id number] [place] [address] [place] Calcium [Mass/Vol]9.1 mg/dLNormal8.5-10.2[facility] on above:Order Comment: Specimen Type: BLOOD SPECIMENOrdering Facility: [facility] Address:[address] [place], [place] [address]Performed By: #### 1987-10, , 3033-11, ####[facility] LABCLIA [id number] [place] [address] [place] Chloride [Moles/Vol]101 mmol/PIxtjnu41-329VgomhrqufMartin [facility] on above:Order Comment: Specimen Type: BLOOD SPECIMENOrdering Facility: [facility] Address:[address] [place], [place] [address]Performed By: #### 1987-10, , 3033-11, ####[facility] LABCLIA [id number] [place] [address] [place] CO2 [Moles/Vol]24 mmol/ZXzwine50-11QyqkllrunMartin [facility] Hospital on above: Order Comment: Specimen Type: BLOOD SPECIMENOrdering Facility: [facility] Address:[address] [place], [place] [address]Performed By: #### , , 3033-11, ####[facility] LABCLIA [id number] [place] [address] [place] Creatinine [Mass/Vol]1.23 mg/dLHigh0.73-1.22[facility] on above:Order Comment: Specimen Type: BLOOD SPECIMENOrdering Facility: [facility] Address:[address] [place], [place] [address]Performed By: #### 1987-, 69039-9, 3033-6, 75817-8 ####[facility] LABCLIA [id number] [place] [address] [place] Creatinine and Glomerular filtration rate.predicted panel (S/P/Bld)62 mL/min/1.73m???Normal>=60[facility] on above:Order Comment: Specimen Type: BLOOD SPECIMENOrdering Facility: [facility] Address:[address] [place], [place] [address]Result Comment: Estimated Glomerular Filtration Rate (eGFR) is [...] not accurately reflect actual GFR.Performed By: #### 1987-, 67663-8, 3033-6, 11728-2 ####[facility] LABCLIA [id number] [place] [address] [place] AMERICAGlucose [Mass/Vol]105 mg/jWDzmb70-53TxrchkndwMartin [facility] on above:Order Comment: Specimen Type: BLOOD SPECIMENOrdering Facility: [facility] Address:[address] [place] [address]Dvnooz Comment: The English Diabetes Association (ADA) provides guidance for cutoff [...] Standards of Medical Care in Diabetes 2016, English Diabetes Association. Diabetes Care. 2016.39(Suppl 1). Performed By: #### 1987-10, , 3033-11, ####[facility] LABCLIA [id number] [place] [address] [place] AMERICAPotassium [Moles/Vol]3.9 mmol/LNormal3.7-5.1[facility] on above:Order Comment: Specimen Type: BLOOD SPECIMENOrdering Facility: [facility] Address:[address] [place], [place] [address]Performed By: #### 1987-10, , 3033-11, ####[facility]ITALIA [id number] [place] [address] [place] AMERICAProtein [Mass/Vol]7.2 g/dLNormal6.3-8.0[facility] on above:Order Comment: Specimen Type: BLOOD SPECIMENOrdering Facility: [facility] Address:[address] [place], [place] [address]Performed By: #### 1987-10, , 3033-11, ####[facility] LABIA [id number] [place] [address] [place] AMERICASodium [Moles/Vol]140 mmol/JUgwvzq923-161WqinxddqhMartin [facility] on above:Order Comment: Specimen Type: BLOOD SPECIMENOrdering Facility: [facility] Address:[address] [place], [place] [address]Performed By: #### 1987-10, , 3033-11, ####[facility] LABIA [id number] [place] [address] [place] AMERICAUrea nitrogen [Mass/Vol]15 mg/dL Normal9-24[facility] on above:Order Comment: Specimen Type: BLOOD SPECIMENOrdering Facility: [facility] Address:[address] [place], [place] [address]Performed By: #### 1988-5, 16081-0, 3034-6, 59378-2 ####[facility] LABCLIA [id number] [place] [address] [place] AMERICAG lamblia+Cryptosp Ag Stl Ql IAon 04-20-2024G. lamblia+Cryptosporidium sp Ag IA Ql (Stl) CRYPTOSPORIDIUM ANTIGEN BY EIA: Negative for Cryptosporidium by EIA. GIARDIA ANTIGEN BY EIA: Negative for Giardia lamblia by EIA.NormalMartin [facility] on above:Performed By: #### 63273-8, 37045-6 ####[facility] LABCLIA [id number] [place] [address] [place] AMERICAGastrointestinal pathogens identified BRYN+probe Nom (Stl)on 04-20-2024 Campylobacter sp DNA BRYN+probe Nom (Unsp spec)Not detectedNormalNot Detected [facility] on above:Order Comment: Specimen Type: STOOL SPECIMENOrdering Facility: [facility] Address:[address] [place], [place] [address]Performed By: #### 70783-4, 74319-4 ####[facility] LABCLIA [id number] [place] [address] [place] AMERICASalmonella sp DNA BRYN+probe Ql (Unsp spec)Not detectedNormalNot DetectedMartin [facility] on above:Order Comment: Specimen Type: STOOL SPECIMENOrdering Facility: [facility] Address:[address] [place], [place] [address]Performed By: #### 16074-6, 46387-3 ####[facility] LABCLIA [id number] [place] [address] [place] AMERICAShiga toxin stx gene BRYN+probe Nom (Unsp spec)Not detectedNormalNot DetectedMartin [facility] on above:Order Comment: Specimen Type: STOOL SPECIMENOrdering Facility: [facility] Address:[address] [place], [place] [address]Performed By: #### 19994- 1, 11751-5 ####[facility] LABCLIA [id number] [place] [address] [place] AMERICAShigella sp DNA BRYN+probe Ql (Unsp spec)Not detectedNormalNot DetectedPromedica Fostoria [facility] Hospital Comment on above:Order Comment: Specimen Type: STOOL SPECIMENOrdering Facility: [facility] Address:[address] [place] [address] Performed By: #### 37207-1, 70475-8 ####[facility] LABCLIA [id number] [place] [address] [place] HBV surface Ag Ql (S)on 43-55-6520Oyozqjzzpeayda and review of laboratory resultsNormalCleveland Regency Hospital CompanyHBV surface Ag Ser Qlon 04-20-2024 HBV surface Ag Ql (S)NegativeNormalNegativeMartin [facility] on above:Order Comment: Specimen Type: BLOOD SPECIMENOrdering Facility: [facility] Address:[address] [place], [place] [address]Performed By: #### 5195-3 ####[facility] LABCLIA [id number] [place] [address] [place] AMERICAIgA SerPl-mCncon 34-97-6456TiR [Mass/Vol]282 mg/gZWaondh70-709OclvmymsuMartin [facility] on above:Order Comment: Specimen Type: BLOOD SPECIMENOrdering Facility: [facility] Address:[address] [place] [address] Performed By: #### 2458-8 ####[facility] LABCLIA [id number] [place] [address] [place] Iron and Iron binding capacity panelon 20-27-9230Cfkj [Mass/Vol]26 ug/dLLow41 - 186 ug/dLTrinity Health System Twin City Medical CenterIron binding capacity [Mass/Vol]256 ug/dL232 - 386 ug/dLTrinity Health System Twin City Medical CenterIron/TIBC [Molar ratio]10.2 %Low15.0 - 57.0 %[facility] Medical CenterIron [Mass/Vol]26 ug/lTAtc73-969AaslxwkakPromedica Fostoria Community HospitalComment on above:Order Comment: Specimen Type: BLOOD SPECIMENOrdering Facility: [facility] Address:[address] [place], [place] [address]Performed By: #### 1987-10, , 6, ####[facility] LABCLIA [id number] [address] [place] Iron binding capacity [Mass/Vol]256 ug/kGFczdin752-803EgxxuohpuPromedica Fostoria Community Hospital Comment on above:Order Comment: Specimen Type: BLOOD SPECIMENOrdering Facility: [facility] Address:[address] [place] [address] Performed By: #### 1987-10, , 6, ####[facility] LABCLIA [id number] [address] STATES OF [facility]ST CAMPUSIron/TIBC [Molar ratio]10.2 %Low15.0-57.0Prom[facility] Fostoria Community HospitalComsurgeons choice medical center on above:Order Comment: Specimen Type: BLOOD SPECIMENOrdering Facility: [facility] Address:[address] [place], [place] [address]Performed By: #### 1987-10, , 3033-11, 28287-9 ####[facility] LABCLIA [id number] [place] [id number] [place] AMERICALaboratory - Chemistry and Chemistry - challengeon 33-76-2697DCU [Mass/Vol]8.4 mg/dLHighNINF - 0.9 mg/dLTrinity Health System Twin City Medical CenterTransferrin [Mass/Vol]209 mg/dL200 - 360 mg/dLTrinity Health System Twin City Medical CenterBgtqpi63-nirqhqfgdfhkjl D3 [Mass/Vol]36.6 ng/mL31.0 - 80.0 ng/mLCleveland Westbrook Medical CenterComment on above: Classification of 25 [place] Vitamin D status: Deficiency/Insufficiency: < or = 30 ng/ml. Sufficiency/Optimal Levels: 31-80 ng/mL Toxicity: > 100 ng/mL. Test performed by chemiluminescent immunoassay. Cobalamin (Vitamin B12) [Mass/Vol]1458 pg/jBWzdb580 - 1245 pg/mLCDiley Ridge Medical Center Laboratory - Microbiology and Antimicrobial susceptibilityon 04-20-2024. difficile toxin genes BRYN+probe Ql (Stl)NegativeNegative for C. difficile toxin by PCRTrinity Health System Twin City Medical CenterHBV surface Ag Ql (S)NegativeNegativeTrinity Health System Twin City Medical CenterNo [facility] Informationon 57-58-9740Bajmrsmxsarnkz and review of laboratory results AbnormalSelect Medical Specialty Hospital - Southeast OhioPAN ELASTASE, FECALon 04-20-2024 ELASTASE INTERPRETATIONNormalNormalNormalCUC Medical Center on above:Order Comment: Specimen Type: STOOL SPECIMENOrdering Facility: [facility] Address:[address] [place], [place] [address]Performed By: #### 31784-5, 86894-5, PANCEF ####[facility] LABIA [id number], [place] [address] [place] ELASTASE-1 FPAGRHWTCKQAJ270 ug/gNormal>=200[facility] on above:Order Comment: Specimen Type: STOOL SPECIMENOrdering Facility: [facility] Address:[address] [place], [place] [address]Result Comment: Interpretation:<100 ug/g: Severe Exocrine Pancreatic Iybqyswxmlvpn809-312 ug/g: Mild to Moderate Exocrine Pancreatic Insufficiency>=200 ug/g: NormalPerformed By: #### 07253-3, 39051-2, PANCEF ####[facility] LABIA [id number], [place] [address] [place] Transferrin SerPl-mCncon [id number] [Mass/Vol]209 mg/wBVpekue162-185 [facility] on above:Order Comment: Specimen Type: BLOOD SPECIMENOrdering Facility: [facility] Address:[facility] [place], [place] [address]Performed By: #### 1988-5, 32104-3, 3034-6, 98623-8 ####[facility] LABCLIA [id number] [facility] [id number] STATES OF AMERICATransferrin [Mass/Vol]on 24-31-3388Uibumbiqrvbmcz and review of laboratory resultsNormTrumbull Regional Medical Center Vit B12 SerPl-mCncon 88-57-4589Kxzcwgbin (Vitamin B12) [Mass/Vol]1458 pg/mLHigh 232-1245CChillicothe VA Medical CentervelandComment on above:Order Comment: Specimen Type: BLOOD SPECIMENOrdering Facility: [facility] Address:[address] [place], [place] [address]Performed By: #### 2132-9 ####[facility] LABCLIA [id number] [address] AMERICAANA BY IFA SCREENOrdered By: Nathaly Black on 03-31-2024 Interpretation and review of laboratory resultsNormalCDiley Ridge Medical CenterNuclear Ab Ql (S)NegativeNegativeTrinity Health System Twin City Medical CenterComment on above:Anti-nuclear antibody test is used as an aid in diagnosis of systemic autoimmune diseases. Where pos itive and clinically warranted, follow-up using disease-specific testing is recommended. Low positive titers are not uncommon with advanced age, certain chronic infections, and malignancies among others. Test methodology: Indirect fluorescence immunoassay (IFA) using HEp-2 cells. [facility] Medical CenterANTI NEUTRO CYTO ABon 80-39-7958Pjijbcqvjsncpl (ANCA)Equivocal staining seen on the ethanol (indirect immunofluorescence screen) slide but negative results on follow up confirmatory testing. Anti-nuclear antibody test may be considered. Clinical correlation is required.[facility] Myeloperoxidase Ab Qn (S)[facility] CenterNeutrophil cytoplasmic Ab.classic IF Ql (S)NegativeNegativeTrinity Health System Twin City Medical CenterNeutrophil cytoplasmic Ab.perinuclear IF Ql (S)NegativeNegativeTrinity Health System Twin City Medical CenterProteinase 3 Ab Qn (S)NINFCKindred Hospital Daytontaff Review (ANCA)Reviewed by Sundar Hilario MD, PhDTrinity Health System Twin City Medical CenterThis test is used as an aid in diagnosis of patients with autoimmune vasculitides. The final interpretation should be done in conjunction with ANCA test results and clinical correlation. [facility] OhioBLOOD TB SCREENon 03-31-2024M. tuberculosis tuberculin stim IFN-g Ql (Bld)NegativeTrinity Health System Twin City Medical CenterMitogen minus Nil1.71- PINFCleveland ClinicTB Gamma InterpretationInfection with M. tuberculosis complex is unlikely. If latent tuberculosis infection is highly suspected, a negative result does not rule out the infection. Specimens from immunocompromised patients and those <5 years of age may show false negative results. In case of a contact investigation, please repeat 8-12 weeks after a known exposure.[facility] Medical CenterTB Nil0.00NINFTrinity Health System Twin City Medical CenterTB1 Ag minus Nil NINCleveland Clinic Lutheran HospitalTB2 Ag minus Nil0.00NINFSelect Medical Specialty [facility] [place] CRITHIDIA LUCILIAEOrdered By: Sherie Vásquez on 1950YWR double strand Ab IF Crithidia luciliae Ql (S)NegativeNegativeTrinity Health System Twin City Medical CenterComment on above: Crithidia luciliae assay is used as an aid in diagnosis of systemic lupus erythematosus (SLE). A negative result cannot rule out SLE. Low positive titers may be seen with other systemic autoimmune diseases. Clinical correlation is required.DNA double strand Ab IF Crithidia luciliae Ql (S)Ordered By: Sherie Vásquez on 49-74-3797Ohaceayomakszp and review of laboratory resultsNormal [facility]-REACTIVE PROTEINon 33-26-6497WBN [Mass/Vol]2.1 mg/dLHighNINF - 0.9 mg/dLTrinity Health System Twin City Medical CenterC3 COMPLEMENTon 28-51-4681Yohrbuavel C3 [Mass/Vol]168 mg/lBPddb37 - 166 mg/dLTrinity Health System Twin City Medical CenterC4 COMPLEMENTon 74-29-1182Qrhhzawzqv C4 [Mass/Vol]42 mg/dL13 - 46 mg/dLTuscarawas Hospital W Auto Differential panel (Bld)on 17-27-6680Gsznfxgjr (Bld) [#/Vol]0.04 10*3/uL NINFCleveland ClinicBasophils/100 WBC (Bld)0.6 %[facility] Medical CenterDifferential cell count method Nom (Bld)AutoCleveland ClinicEosinophils (Bld) [#/Vol]NINF [facility] Medical CenterEosinophils/100 WBC (Bld)0.0 %[facility] Medical CenterErythrocyte distribution width (RBC) [Ratio]15.6 %High11.5 - 15.0 %[facility] Hematocrit (Bld) [Volume fraction]38.4 %Low39.0 - 51.0 %[facility] Hemoglobin (Bld) [Mass/Vol]11.9 g/dLLow13.0 - 17.0 g/dLTrinity Health System Twin City Medical CenterImmature granulocytes (Bld) [#/Vol]NINFCDiley Ridge Medical CenterImmature granulocytes/100 WBC (Bld)0.3 %[facility] Medical CenterInterpretation and review of laboratory results AbnormalTrinity Health System Twin City Medical CenterLymphocytes (Bld) [#/Vol]1.21 10*3/uLTrinity Health System [facility] City Medical Center Lymphocytes/100 WBC (Bld)17.7 %[facility]tering [facility] DaytonH (RBC) [Entitic mass]29.7 pg 26.0 - 34.0 pgCSelect Medical TriHealth Rehabilitation HospitalHC (RBC) [Mass/Vol]31.0 g/dL30.5 - 36.0 g/dL [facility]tering [facility] DaytonV (RBC) [Entitic vol]95.8 fL80.0 - 100.0 fLCDiley Ridge Medical Center Monocytes (Bld) [#/Vol]0.80 10*3/uLNINFTrinity Health System Twin City Medical CenterMonocytes/100 WBC (Bld) 11.7 %[facility] Medical CenterNeutrophils (Bld) [#/Vol]4.77 10*3/[facility] Neutrophils/100 WBC (Bld)69.7 %[facility] Medical CenterNucleated RBC (Bld) [#/Vol]NINF [facility] CenterNucleated RBC/100 WBC (Bld) [Ratio]0.0 %/100 WBCTrinity Health System Twin City Medical Center Platelet mean volume (Bld) [Entitic vol]10.7 fL9.0 - 12.7 fLCDiley Ridge Medical Center Platelets (Bld) [#/Vol]243 10*3/[facility]-FairhillRBC (Bld) [#/Vol]4.01 10*6/uL Low4.20 - 6.00 m/[facility]-FairhillWBC (Bld) [#/Vol]6.84 10*3/[facility] HospitalCK [Catalytic activity/Vol]on 90-35-6286Okpdhpumxfwhpn and review of laboratory resultsNormalCSelect Medical Cleveland Clinic Rehabilitation Hospital, BeachwoodCREATINE KINASE/CKon 70-47-5977WQ [Catalytic activity/Vol]56 U/L51 - 298 U/LCleveland ClinicComplement C4 [Mass/Vol]on 64-24-4435Jnepuzjyvgoabs and review of laboratory resultsNormalCSumma Health Wadsworth - Rittman Medical Centerprehensive metabolic 2000 panelon 53-40-9781Tdcxwxx [Mass/Vol]4.1 g/dL3.9 - 4.9 g/dLSalt Lake City ClinicALP [Catalytic activity/Vol]121 U/LHigh38 - 113 U/LCleveland ClinicALT [Catalytic activity/Vol]13 U/L10 - 54 U/LCleveland ClinicAnion gap [Moles/Vol]10 mmol/L8 - 15 mmol/LCleveland ClinicAST [Catalytic activity/Vol]22 U/L14 - 40 U/LCleveland ClinicBilirubin [Mass/Vol]0.7 mg/dL0.2 - 1.3 mg/dLSalt Lake City ClinicCalcium [Mass/Vol]9.0 mg/dL8.5 - 10.2 mg/dLSalt Lake City ClinicChloride [Moles/Vol]105 mmol/L98 - 107 mmol/LCleveland ClinicCO2 [Moles/Vol]27 mmol/L22 - 30 mmol/L [facility] Medical CenterCreatinine [Mass/Vol]1.26 mg/dLHigh0.73 - 1.22 mg/dLSalt Lake City ClinicGFR/1.73 sq M.predicted among non-blacks MDRD (S/P/Bld) [Vol rate/Area]60 mL/min/{1.73_m2}- PINFCblanchard valley health system bluffton hospitaland [facility]brook Medical CenterComment on above:Estimated Glomerular Filtration Rate [...] actual GFR.Glucose [Mass/Vol]95 mg/dL74 - 99 mg/dL [facility] Medical CenterComment on above:The English Diabetes Association (ADA) provides guidance for cutoff [...] Standards of Medical Care in Diabetes 2016, English Diabetes Association. Diabetes Care. 2016.39(Suppl 1). Potassium [Moles/Vol]4.1 mmol/L3.7 - 5.1 mmol/LCleveland ClinicProtein [Mass/Vol]7.0 g/dL6.3 - 8.0 g/dLSalt Lake City ClinicSodium [Moles/Vol]142 mmol/L136 - 144 mmol/LCleveland ClinicUrea nitrogen [Mass/Vol]17 mg/dL9 - 24 mg/dL [facility] CenterNo Panel Informationon 04-64-7618Appgbjjvoowklh and review of laboratory resultsAbnormalCClinton Memorial Hospital ClinicPROTEIN / CREATININE RATIOon 41-89-0073Qjmqibo/Creatinine (U) [Mass ratio]0.17 mg/mgHighNINF - 0.15 mg/mgTrinity Health System Twin City Medical CenterComment on above:Adult Proteinuria Categories: <0.15 mg/mg is considered normal to mildly increased 0.15 - 0.50 mg/mg is considered moderately increased >0.50 mg/mg is considered severely increased KDIGO. (2013). KDIGO 2012 Clinical Practice Guideline for the Evaluation and Management of Chronic Kidney Disease. Official Journal of the International Society of Nephrology, 3(1), 1-150. Protein/Creatinine (U) [Mass ratio]on 00-75-1961Rzxekveapy (U) [Mass/Vol]34.5 mg/dL20.0 - 300.0 mg/dLTrinity Health System Twin City Medical CenterInterpretation and review of laboratory resultsAbnormalCleveland ClinicProtein (U) [Mass/Vol]6 mg/dL0 - 20 mg/dL [facility] ClinicUrinalysis complete panel (U)on 03-30-2024 Bacteria LM.HPF (Urine sed) [#/Area]NegativeNegative /HPFTrinity Health System [facility] Medical Center Bilirubin Ql (U)NegativeNegativeSalt Lake City ClinicClarity (Unsp spec)ClearClear [place] ClinicColor (U)YellowYellowTrinity Health System Twin City Medical CenterEpithelial cells LM.HPF (Urine sed) [#/Area]None Seen/HPFTrinity Health System Twin City Medical CenterGlucose Test strip (U) [Mass/Vol]NegativeNegativeTrinity Health System Twin City Medical CenterHemoglobin Ql (U)NegativeNegative [facility] Medical CenterHyaline casts (Urine sed) [#/Area]4-10 /LPFAbnormal0 /LPF [facility] CenterInterpretation and review of laboratory resultsAbnormalCleveland ClinicKetones Ql (U)NegativeNegativeTrinity Health System Twin City Medical CenterLeukocyte esterase Test strip Ql (U)NegativeNegativeSalt Lake City ClinicNitrite Ql (U)NegativeNegative [place] ClinicpH (U)6.5 [pH]NINF - 8.5Cleveland ClinicProtein (U) [Mass/Vol] NegativeNegativeTrinity Health System Twin City Medical CenterRBC LM.HPF (Urine sed) [#/Area]0-2 /HPF0-2 /HPF Green Cross Hospitalpecific gravity (U) [Rel density]1.0101.005 - 1.030Tr[facility] Medical CenterUrobilinogen Ql (U)0.2 EU/dL0.2-1.0 EU/dLTrinity Health System Twin City Medical CenterWBC LM.HPF (Urine sed) [#/Area]0-5 /HPF0-5 /HPFSalt Lake City ClinicThis test was developed and its performance characteristics determined by [facility]'s [facility] Pathology and Laboratory Medicine Pound ([facility]ALTH CENTERPLMI). It has not been cleared or approved by the FDA. -[facility] is regulated under CLIA as qualified to perform high-complexity testing. Thistest is used for clinical purposes. It should not be regarded as investigational or for research. [facility] [id number]: - Exam indication: Pericardial Disease - The left ventricle is normal in size. Left ventricular systolic function is normal. EF = 55 5% (visual est.) - The right ventricle is normal in size. Right ventricular systolic function is normal. - The patient has not had a prior CC echocardiographic exam for comparison. * * * Final * * *[facility] Echocardiography Report: Transthoracic Echo [facility] Date of service: 03/26/2024 2:34:18 PM Ordering physician: LOUISE CESAR Indication: Pericardial Disease Technologist: Marlyn Thomas RD and staff Interpreting physician: Romario Lea MD [...] septum. PERICARDIUM There is no pericardial effusion. [facility]ARDIOLOGYEchocardiographyEchocardiography Report: Transthoracic Echo [facility] Date of service: 03/26/2024 2:34:18 PM Ordering [...] * * Final * * * [facility] : [id number]e [facility] BostonLVEF ECHOon 07-85-3316FL Ejection Avljdadk47 %[facility] Comment on above:(visual est.) EF > 52 An LV Ejection Fraction of > 50% is normal No Panel Informationon 21-07-0279Aijiiclzt ClinicCNOVon [id number] Visit (BERNARD) SAV RAYMUNDO ([id number]) 1950 Date Time Provider Department 03/17/24 1:30 PM RUMA OSHEA During your visit today, we recorded the following information about you: Temperature Pulse Respiration Blood pressure 97.3 degrees 88/minute 16/minute 132/78 Weight Height 94.3 kg 1.778 m Ruma Oshea PA-C 03/17/2024 2:26 PM Signed [facility] - OUTPATIENT THORACIC SURGERY CLINIC NOTE PT NAME: Sav Cantu [facility] NO: [id number] THORACIC SURGEON: Ronaldo Flood M.D. 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 Right pleura, biopsy: - Chronic pleuritis with mesothelial hyperplasia (see comment). B. Right pleura, biopsy: - Acute organizing and chronic pleuritis (see comment). IA/ 11/22/2023 Diagnosis Comment A. 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 He was hospitalized 12/20/23 for anasarca, possible autoimmune disease, recurrent pleural effusion. Imaging did not reveal any acute findings. Patient was admitted to [facility] and started on lasix drip, improving anasarca and pleural effusion. Pleurx catheter was drained daily with significantly decreasing output [phone]. He was worked up for an autoimmune [...] presents to clinic today for postoperative visit. [facility] RN called in 03/03 reporti (more content not included)...NormalHillcrest HospitalCNOVOffice Visit (MOPL) SAV RAYMUNDO ([id number]) 1950 M Date Time Provider Department 03/17/24 [...] seen by Pulmonary Doctor? Dr. Clemente in [facility]. Outside of [facility]. Is Dr. Cesar on Care Team as Concrete Truck Driver? no Meds reviewed - Refills pended?no Since last seen Have you had any resp illnessses, COVID, exacerbations or recent visits to ER?hospital/Urgent-Care? [place] December 19 x 1 week, Vaccines: Immunization History Administered Date(s) Administered COVID-19 original vaccine, age 12+ yr, monovalent ([employer] - PURPLE TOP) 08/15/2020 08/22/2020 09/13/2020 05/10/2021 influenza (aIIV3) vaccine, age 65+ yr, trivalent, PF (FLUAD) 05/09/2020 pneumococcal conjugate (PCV13) vaccine, 13 valent (PREVNAR 13) 11/26/2016 pneumococcal polysaccharide (PPV23) vaccine, 23 valent (PNEUMOVAX 23) 02/03/2018 tetanus diphtheria (Td) vaccine, age 7+ yr, 5 Lf tetanus, PF (TENIVAC) 06/04/2018 08/30/2018 zoster (RZV) vaccine, recombinant (SHINGRIX) 08/30/2018 Modified Medical Research [place] Dyspnea Scale (MMRC) I stop for breath [...] year old male who presents to the [facility] Respiratory [facility]. Consultation requested by Dr. Hopper and Dr. Ronaldo Flood. My final recommendations/evaluation will be communicated back to the requesting physician by way of shared medical record or letter via US mail. This note was partially created using Golgi Voice recognition software and is inherently subject to errors including those of syntax and ?sound-alike? substitutions which may escape proofreading. In such instances, original meaning may be extrapolated by contextual derivation. 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 Mr. Kumar presents with an interesting history. He is a semiretired gentleman from the [facility] [employer], with virtually no past medical history, very [...] and he was referred to a local store receiver. He underwent thoracentesis several times, each time pleural fluid analysis showed exudative fluid. CT scan was obtained locally which did not reveal much except pleural effusion. CT scan also shows pericardial effusion. He was then referred by his local store receiver to [place] for a pleurodesis. In November 2023, he underwent VATS pleurodesis (mechanical and doxycycline), with pleural biopsy, and the Pleurx catheter was also placed. Analysis of the pleural fluid and biopsies of the pleura showed acute and chronic pleuritis with organization, but no malignancy. We do not have pleural fluid chemical or hematological analysis done in [place], but cytology was negative for malignant cells. He was discharged with Pleurx catheter, and and has been draining pleural fluid about 500 to 800 mL every other day. And his dry cough has also been persistent. In December 2023, he was sent to [facility] after seeing thoracic surgery ADRIENNE for anasarca, and was admitted. His abdomen and subcutaneous tissues especially in his legs were swollen, no ascites found, but significant skin edema including blisters were seen. He improved with Lasix drip, was evaluated by rheumatology, and so far his sero (more content not included)...NormalHillcrest HospitalCT CHEST W IVCONon [id number] CHEST W IVCON* * *Final Report* * [...] EST [id number] HospitalNITRIC OXIDE, EXHALEDon 03-17-2024 [place] RRT 03/17/2024 8:16 AM RESPIRATORY THERAPY ORAL [...] DATE: March 17, 2024 TIME: 8:16 AM [facility] ClinicNo Panel Informationon [id number] (ml/min/mmHg)21.86ml/min/mmHgCleveland ClinicDLCO LLN (ml/min/mmHg)15.50 ml/min/mmHgCleveland ClinicDLCO PREDICTED [...] ClinicVA PREDICTED (L)6.81 LCleveland ClinicVC (L) [address] LCblanchard valley health system bluffton hospitaland [facility] [address] [place] [address] Test Date: 2024-03-17 Pat Name: SAV RAYMUNDO Department: Room: Gender: Male Abstractor: : 1950 Requested By: Kathy Hartman MD Order Number: [id number] Reading MD: Kathy Hartman MD Interpretive Statements Current ATS/ERS acceptability and repeatability standards for DLCO met with 2 acceptable maneuvers. Lung Volumes repeatable x 3. //MW IMPRESSION: Decrease in TLC indicates restriction. The diffusing capacity is normal. Electronically Signed On 03-17-2024 14:02:07 EDT by Kathy Hartman MD ID: [id number] Name: SAV RAYMUNDO Race: White Ht: 69.96 in Wt: 209.44 lbs Age: 74 Gender: Male : 1950 Dx: Idiopathic interstitial pulmonary disease_ Smoking Hx: Non-smoker Doctor: LOUISE CESAR Test Date: 03/17/2024 Site: [facility] Tech: Was, Wes PRE-BRONCH POST-BRONCH Pre [...] Volumes repeatable x 3. // PULMONARY FUNCTION LABTrinity Health System Twin City Medical CenterXR CHEST 2V FRONTAL/LATon [id number] CHEST 2V FRONTAL/LAT* * *Final Report* * [...] noted slightly increased. Right-sided Pleurx catheter present. Manager Clinical Services: ALONSO Transcribe Date/Time: Mar 19 2024 4:42P Dictated by : KALEY CHAMBERS MD This examination was interpreted and the report reviewed and electronically signed by: KALEY CHAMBERS MD on Mar 19 2024 4:43PM EST [id number] Memorial Hospital Chest PA and Lateralon [id number]: Interval decrease in size of small right-sided pleural effusion with adjacent atelectasis/consolidations. Transcribed Using Voice Recognition Transcribe Date/Time: Feb 05 2024 12:51P Dictated by: SHAWN TALAVERA MD This examination was interpreted and the report reviewed and electronically signed by: SHAWN TALAVERA MD on Feb 05 2024 12:52PM [facility] RADIOLOGY* * *Final Report* * [...] changes are present within the thoracic spine. [facility] RADIOLOGYProvider, [facility] - 02/05/2024 * * *Final Report* * [...] MD on Feb 05 2024 12:52PM EST [facility] Medical CenterXR Chest PA and LateralOrdered By: Ccvilla Provider on 02-05-2024 [facility] Medical CenterCNOVon [id number] Visit (BERNARD) SAV RAYMUNDO ([id number]) 1950 M Date Time Provider Department 02/04/24 1:30 PM TITA LANDRY During your visit today, we recorded the following information about you: Temperature Pulse Respiration Blood pressure 97.1 degrees 75/minute 16/minute 120/69 Weight Height 90.7 kg 1.829 m Tita Landry APRN.SEO SPECIALIST 02/05/2024 4:19 PM Signed [facility] DEPARTMENT OF THORACIC SURGERY OUTPATIENT VISIT DATE February 04, 2024 OUTPATIENT VISIT TYPE ESTABLISHED PT NAME: Sav Raymundo [facility] NO: [id number] THORACIC SURGEON: Ronaldo Flood M.D. 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 Right pleura, biopsy: - Chronic pleuritis with mesothelial hyperplasia (see comment). B. Right pleura, biopsy: - Acute organizing and chronic pleuritis (see comment). IA/ 11/22/2023 Diagnosis Comment A. The biopsy contains [...] reactive proliferation. Drs. 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 He was hospitalized 12/20/23 for anasarca, possible autoimmune disease, recurrent pleural effusion. Imaging did not reveal any acute findings. Patient was admitted to [facility] and started on lasix drip, improving anasarca and pleural effusion. Pleurx catheter was drained daily with significantly decreasing output [phone]. He was worked up for an autoimmune [...] [facility] HospitalXR CHEST 2V FRONTAL/LATon 56-20-5024TI CHEST 2V FRONTAL/LAT* * *Final Report* * [...] MD on Feb 05 2024 12:52PM EST [id number] Memorial Hospital Chest PA and Lateralon [id number] Study observation (narrative)[facility] CenterCNOVon [id number] Visit (BERNARD) SAV RAYMUNDO ([id number]) 1950 M Date Time Provider Department 01/06/24 2:00 PM RUMA OSHEA During your visit today, we recorded the following information about you: Temperature Pulse Respiration Blood pressure 97.2 degrees 80/minute 16/minute 137/73 Weight Height 97.3 kg 1.829 m Ruma Oshea PA-C 01/06/2024 2:58 PM Signed [facility] OUTPATIENT THORACIC SURGERY CLINIC NOTE PT NAME: Sav Raymundo [facility] NO: [id number] THORACIC SURGEON: Ronaldo Flood M.D. 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 Patient was admitted to [facility] and started on lasix drip, improving anasarca and pleural effusion. Pleurx catheter was drained daily with significantly decreasing output [phone]. He was worked up for an autoimmune [...] clinic. 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 Will fax over recent medical information to store receiver. Patient also going on a bus trip [...] [facility] HospitalXR CHEST 2V FRONTAL/LATon [id number] CHEST 2V FRONTAL/LAT* * *Final Report* * [...] MD on Jan 08 2024 9:10PM EST [id number] HospitalBasic metabolic 2000 panelon 39-40-2419Rerwo gap [Moles/Vol]14 mmol/LNormal8-15Hillcre HospitalComment on above:Order Comment: Specimen Type: BLOOD SPECIMEN Ordering Facility: [facility] Address: [address] [place], [place] [address]Performed By: #### 13702-5 #### [facility] CLIA [id number] [address] [place] [address] [place] OF AMERICACalcium [Mass/Vol]9.0 mg/dL Normal8.5-10.2[facility] HospitalComment on above:Order Comment: Specimen Type: BLOOD SPECIMEN Ordering Facility: [facility] Address: [address] [place], [place] [address]Performed By: #### 72128-3 #### [facility] CLIA [id number] [address] [place] [address] [place] AMERICAChloride [Moles/Vol]101 mmol/IXgzbhm02-727Ieqlfrnaw HospitalComment on above:Order Comment: Specimen Type: BLOOD SPECIMEN Ordering Facility: [facility] Address: [address] [place], [place] [address]Performed By: #### 66737-0 #### [facility] CLIA [id number] [address] [place] [address] [place] AMERICACO2 [Moles/Vol]23 mmol/L Btiytz32-03Lotbavkbg HospitalComment on above:Order Comment: Specimen Type: BLOOD SPECIMEN Ordering Facility: [facility] Address: [address] [place], [place] [address]Performed By: #### 65320-1 #### [facility] CLIA [id number] [address] [place] [address] [place] AMERICACreatinine [Mass/Vol]0.96 mg/dLNormal0.73-1.22[facility] HospitalComment on above:Order Comment: Specimen Type: BLOOD SPECIMEN Ordering Facility: [facility] Address: [address] [place], [place] [address]Performed By: #### 61202-3 #### [facility] CLIA [id number] [address] [place] [address] [place] AMERICACreatinine and Glomerular filtration rate.predicted panel (S/P/Bld)84 mL/min/1.73m???Normal>=60[facility] HospitalComment on above:Order Comment: Specimen Type: BLOOD SPECIMEN Ordering Facility: [facility] Address: [address] [place], [place] [address]Result Comment: Estimated Glomerular Filtration Rate (eGFR) is [...] not accurately reflect actual GFR.Performed By: #### 97609-8 #### [facility] CLIA [id number] [address] [place] [address] [place] AMERICAGlucose [Mass/Vol]152 mg/dL Yhqq58-93Jnfcwuili HospitalComment on above:Order Comment: Specimen Type: BLOOD SPECIMEN Ordering Facility: [facility] Address: [address] [place], [place] [address]Result Comment: The English Diabetes Association (ADA) provides guidance for cutoff [...] Standards of Medical Care in Diabetes 2016, English Diabetes Association. Diabetes Care. 2016.39(Suppl 1).Performed By: #### 38715-6 #### [facility] CLIA [id number] [address] [place] [address] [place] AMERICAPotassium [Moles/Vol]4.1 mmol/LNormal3.7-5.1[facility] HospitalComment on above:Order Comment: Specimen Type: BLOOD SPECIMEN Ordering Facility: [facility] Address: [address] [place], [place] [address]Performed By: #### 63826-9 #### [facility] CLIA [id number] [address] [place] [address] [place] AMERICASodium [Moles/Vol]138 mmol/L Lmacbx207-326Lumvqudcg HospitalComment on above:Order Comment: Specimen Type: BLOOD SPECIMEN Ordering Facility: [facility] Address: [address] [place], [place] [address]Performed By: #### 67686-8 #### [facility] CLIA [id number] [address] [place] [address] [place] AMERICAUrea nitrogen [Mass/Vol]19 mg/dLNormal9-24[facility] HospitalComment on above:Order Comment: Specimen Type: BLOOD SPECIMEN Ordering Facility: [facility] Address: [address] [place], [place] [address]Performed By: #### 76215-8 #### [facility] CLIA [id number] [address] [place] [address] [place] AMERICACBC panel Auto (Bld)on 80-04-4391Thkuzxtbybh distribution width (RBC) [Ratio]14.8 %Lvhcmk30.5-15.0 [facility] HospitalComment on above:Order Comment: Specimen Type: BLOOD SPECIMEN Ordering Facility: [facility] Address: [address] [place], [place] [address]Performed By: #### 90566-9 #### [facility] CLIA [id number] [address] [place] [address] [place] AMERICAHematocrit (Bld) [Volume fraction]39.2 %Rdyqcu96.0-51.0[facility] HospitalComment on above:Order Comment: Specimen Type: BLOOD SPECIMEN Ordering Facility: [facility] Address: [address] [place], [place] [address]Performed By: #### 01173-7 #### [facility] CLIA [id number] [address] [place] [address] [place] AMERICAHemoglobin (Bld) [Mass/Vol] 12.5 g/dLLow13.0-17.0[facility] HospitalComment on above:Order Comment: Specimen Type: BLOOD SPECIMEN Ordering Facility: [facility] Address: [address] [place], [place] [address]Performed By: #### 33415-7 #### [facility] CLIA [id number] [address] [place] [address] [place] AMERICAMCH (RBC) [Entitic mass]29.6 ueHfqhyn26.0-34.0[facility] HospitalComment on above:Order Comment: Specimen Type: BLOOD SPECIMEN Ordering Facility: [facility] Address: [address] [place], [place] [address]Performed By: #### 58774-5 #### [facility] CLIA [id number] [address] [place], [place] [address]MCHC (RBC) [Mass/Vol]31.9 g/qQOvtsyy06.5-36.0[facility] HospitalComment on above:Order Comment: Specimen Type: BLOOD SPECIMEN Ordering Facility: [facility] Address: [address] [place], [place] [address]Performed By: #### 06098-8 #### [facility] CLIA [id number] [address] [place], [place] [address]MCV (RBC) [Entitic vol]92.9 lCVoajnu97.0-100.0[facility] HospitalComment on above:Order Comment: Specimen Type: BLOOD SPECIMEN Ordering Facility: [facility] Address: [address] [place], [place] [address]Performed By: #### 05141-0 #### [facility] CLIA [id number] [address] [place], [place] [address]ucleated RBC (Bld) [#/Vol] 10*3/uLNormal<0.01[facility] HospitalComment on above:Order Comment: Specimen Type: BLOOD SPECIMEN Ordering Facility: [facility] Address: [address] [place], [place] [address]Performed By: #### 76976-3 #### [facility] CLIA [id number] [address] [place], [place] [address]Platelet mean volume (Bld) [Entitic vol]10.3 fLNormal9.0-12.7[facility] HospitalComment on above:Order Comment: Specimen Type: BLOOD SPECIMEN Ordering Facility: [facility] Address: [address] [place], [place] [address]Performed By: #### 53717-2 #### [facility] CLIA [id number] [address] [place] [address] [place] [facility] AMERICAPlatelets (Bld) [#/Vol]218 10*3/sCReijtd995-674Coufzkmwb HospitalComment on above:Order Comment: Specimen Type: BLOOD SPECIMEN Ordering Facility: [facility] Address: [address] [place], [place] [address]Performed By: #### 09120-5 #### [facility] CLIA [id number] [address]RB (Bld) [#/Vol]4.22 10*6/uL Normal4.20-6.00[facility] HospitalComment on above:Order Comment: Specimen Type: BLOOD SPECIMEN Ordering Facility: [facility] Address: [address] [place], [place] [address]Performed By: #### 98874-5 #### [facility] CLIA [id number] [address] [place], [place] [address]W (Bld) [#/Vol]5.29 10*3/uL Normal3.70-11.00[facility] HospitalComment on above:Order Comment: Specimen Type: BLOOD SPECIMEN Ordering Facility: [facility] Address: [address] [place], [place] [address]Performed By: #### 89269-5 #### [facility] CLIA [id number] [address]CNDS 88-54-4616ORFCLBQ ID: [id number] Author: JOSE ANTONIO HOPPER MD Service: Family [...] was drained daily with significantly decreased amount 179-592-131-100 mL. The electrolytes have been replaced daily. [...] for appointment?: Yes Jose Antonio Hopper MD [phone] [address] [place] [address] PCP Requested Referral Additional Provider to Provider Information: No notes on file Treatment Team: Attending Provider: Jose Antonio Hopper MD Consulting: Yehuda Dial MD Transitions of Care Critical Issues: LAB MONITORING NEEDED: BMP,Magnesium on 01/02/2024 SPECIALIST FOLLOW-UP: Dr Dial on 01/06/2024 LABS AND PROCEDURES PENDING AT DISCHARGE: No pending results. FOLLOW-UP APPOINTMENTS ALREADY SCHEDULED WITH A [facility] PROVIDER: Future Appointments Date Time Provider Department Center 01/06/2024 1:15 PM [facility] 01/06/2024 2:00 PM Ruma Oshea PA-C [facility] Allergen Reactions Tramadol Mental Status Change DISCHARGE MEDICATION: Medication List START maryjane (more content not included)...NormalHillcrest HospitalNURSING PROMount [facility] 52-57-3374JVDFIKA [facility] ID: [id number] Author: ROJAS CLINE RN Service: Nursing Author Type: Registered Nurse Type: Nursing Progress Note Filed: 12/26/2023 18:03 Note Text: Patient given discharge paperwork. All question and concerns addressed. Patient transport home via family transportF[facility] ChildrenXR SINUS 3V PA/DAN/LATon 97-33-3956AC SINUS 3V PA/DAN/LAT* * *Final Report* * [...] DO on Dec 27 2023 8:21AM EST [id number] HospitalBasic metabolic 2000 panelon 88-42-9480Daroa gap [Moles/Vol]12 mmol/LNormal8-15[facility] HospitalComment on above:Order Comment: Specimen Type: BLOOD SPECIMEN Ordering Facility[facility] Address: [address] [place], [place] [address]Performed By: #### MPO #### [facility] CLIA [id number] [address] [place] [address] 13495Zwlxtuh [Mass/Vol]9.0 mg/dLNormal8.5-10.2Hillcre HospitalComment on above:Order Comment: Specimen Type: BLOOD SPECIMEN Ordering Facility: [facility] Address: [address] [place], [place] [address]Performed By: #### MPO #### [facility] CLIA [id number] [address] [place] [address] 25788Sudxgedo [Moles/Vol]95 mmol/OJrb61-028Nhawuuidd HospitalComment on above:Order Comment: Specimen Type: BLOOD SPECIMEN Ordering Facility: [facility] Address: [address] [place] [address]Quwdchnys By: #### MPO #### [facility] CLIA [id number] [address] [place] [address] 84258SD3 [Moles/Vol]27 mmol/HPrzyvi15-28Itikxupbn HospitalComment on above:Order Comment: Specimen Type: BLOOD SPECIMEN Ordering Facility: [facility] Address: [address] [place], [place] [address]Performed By: #### MPO #### [facility] CLIA [id number] [address] [place] [address] 36645Xitevcalqc [Mass/Vol]1.07 mg/dLNormal0.73-1.22 [facility] HospitalComment on above:Order Comment: Specimen Type: BLOOD SPECIMEN Ordering Facility: [facility] Address: [address] [place] [address]Kusozrqhu By: #### MPO #### [facility] CLIA [id number] [address] [place] [address]Cyfmyouagg and Glomerular filtration rate.predicted panel (S/P/Bld)74 mL/min/1.73m???Normal>=60[facility] HospitalComment on above: Order Comment: Specimen Type: BLOOD SPECIMEN Ordering Facility: [facility] Address: [address] [place] [address]Ztmxqe Comment: Estimated Glomerular Filtration Rate (eGFR) is [...] reflect actual GFR.Performed By: #### MPO #### [facility] CLIA [id number] [address] [place] [address] 87432Iqeivnt [Mass/Vol]108 mg/jAGysl15-60Duintlmax HospitalComment on above:Order Comment: Specimen Type: BLOOD SPECIMEN Ordering Facility[facility] Address: [address] [id number] Comment: The English Diabetes Association (ADA) provides guidance for cutoff [...] Standards of Medical Care in Diabetes 2016, English Diabetes Association. Diabetes Care. 2016.39(Suppl 1).Performed By: #### MPO #### [facility]ITAL[facility] CLIA [id number] [address] [place] [address] 54613Ftsbrmkpj [Moles/Vol]3.7 mmol/LNormal3.7-5.1 [facility] HospitalComment on above:Order Comment: Specimen Type: BLOOD SPECIMEN Ordering Facility: [facility] Address: [address] [place], [place] [address]Performed By: #### MPO #### [facility] CLIA [id number] [address] [place] [address] 48868Kwjxjx [Moles/Vol]134 mmol/APll882-108Caqfkiofk HospitalComment on above:Order Comment: Specimen Type: BLOOD SPECIMEN Ordering Facility: [facility] Address: [address] [place], [place] [address]Performed By: #### MPO #### [facility] CLIA [id number] [address] [place] [address] 755[address]Ybys nitrogen [Mass/Vol]24 mg/dLNormal9-24[facility] HospitalComment on above:Order Comment: Specimen Type: BLOOD SPECIMEN Ordering Facility: [facility] Address: [address] [place], [place] [address]Performed By: #### MPO #### [facility] CLIA [id number] [address] [place] [address] [place] [address]NMMXDKIyz 15-73-1089MHJCKFQPEO ID: [id number] Author: YEHUDA DIAL MD Service: Rheumatology Author [...] for seasonal allergi (more content not included)...Normal [facility] SerPl-mCncon 10-16-5396BNM [Mass/Vol]1.1 mg/dLHigh<0.9 [facility] HospitalComment on above:Order Comment: Specimen Type: BLOOD SPECIMEN Ordering Facility: [facility] Address: [address] [place], [place] [address]Performed By: #### MPO #### [facility] CLIA [id number] [address] [place] [address] [place], [place] [address]ESR Westergren method (Bld) [Velocity]on 12-25-2023 ESR (Bld) [Velocity]28 mm/hHigh0-15[facility] HospitalComment on above:Order Comment: Specimen Type: BLOOD SPECIMEN Ordering Facility[facility] Address: [address] [place], [place] [address]Performed By: #### 88463-7 #### [facility] CLIA [id number] [address] [place] [address] [address]51[place] [address] [place] AMERICAIMMUNOFIXATION SCREEN, SERUM on 06-76-5092CEO RESULTNo M protein is identified.NormalNo M protein is identified.[facility] HospitalComment on above:Order Comment: Specimen Type: BLOOD SPECIMENOrdering Facility: [facility] Address:[address] [place], [place] [address]Performed By: #### IFESC ####[facility] LABCLIA [id number] [address] STREETSTAFF REVIEW (MPA)Reviewed by Dr. Trini Farley MDWhitinsville Hospital on above:Order Comment: Specimen Type: BLOOD SPECIMENOrdering Facility: [facility] Address:[address] [place], [place] [address]Performed By: #### IFESC ####[facility] LABCLIA [id number] [address]ETMYELOPEROXIDASEon 18-79-0943EXYHNENKFMVCGFR555 pmol/LNormal<470[facility] HospitalComment on above:Order Comment: Specimen Type: BLOOD SPECIMEN Ordering [facility] Address: [address] [place], [place] [address]Result Comment: Based on a high risk sub-population [...] analytical performance characteristics have been determined by [facility]. It has not been cleared or approved by the U.S. Food and Drug Administration. This assay has been validated pursuant to the CLIA regulations and is used for clinical purposes. Received Date: [id number] By: #### MPO #### [facility] CLIA [id number] [address] [id number] CARDIAC AMYLOID SPECT/CTon 49-48-0551NB CARDIAC AMYLOID SPECT/CT* * *Final Report* * * DATE OF EXAM: Dec 25 2023 3:56PM [facility] 0847 - NM CARDIAC AMYLOID SPECT/CT / [...] pathologic assessment as appropriate. Nuclear Med Report: [id number] PLANAR and SPECT: Myocardial imaging of the [...] EST [id number] HospitalPROTEIN ELECTROPHORESIS SERUM (P) on 81-53-5273Gzpojkd [Mass/Vol]3.52 g/dLNormal3.43-5.41[facility] HospitalComment on above:Order Comment: Specimen Type: BLOOD SPECIMEN Ordering Facility[facility] Address: [address] [place], [place] [address]Performed By: #### [id number] #### [facility] CLIA [id number] [address] [place], [place] [address] [address] [place] AMERICAAlpha 1 globulin Elph [Mass/Vol]0.34 g/dLNormal0.18-0.43[facility] HospitalComment on above:Order Comment: Specimen Type: BLOOD SPECIMEN Ordering Facility: [facility] Address: [address] [place], [place] [address]Performed By: #### [id number] #### [facility] CLIA [id number] [address] [place] [address] [place] AMERICAAlpha 2 globulin Elph [Mass/Vol]0.86 g/dLNormal0.42-0.98[facility] HospitalComment on above:Order Comment: Specimen Type: BLOOD SPECIMEN Ordering Facility: [facility] Address: [address] [place], [place] [address]Performed By: #### [id number] #### [facility] CLIA [id number] [address] [place] [address] [place] AMERICABeta globulin Elph [Mass/Vol]0.91 g/dLNormal0.61-1.17[facility] HospitalComment on above:Order Comment: Specimen Type: BLOOD SPECIMEN Ordering Facility: [facility] Address: [address] [place], [place] [address]Performed By: #### [id number] #### [facility] CLIA [id number] [address] [place] [address] [place] AMERICAGamma globulin Elph [Mass/Vol]0.66 g/dLNormal0.53-1.51[facility] HospitalComment on above:Order Comment: Specimen Type: BLOOD SPECIMEN Ordering Facility: [facility] Address: [address] [place], [place] [address]Performed By: #### [id number] #### [facility] CLIA [id number] [address] [place] [address] [place] AMERICAM-PROTEIN LOCATIONNormal [facility]er HospitalComment on above:Order Comment: Specimen Type: BLOOD SPECIMEN Ordering [facility] Address: [address] [place], [place] [address]Result Comment: Not Applicable. Performed By: #### [id number] #### [facility] CLIA [id number] [address] [place] [address] STATES AMERICAProtein Fractions [Interp]No definitive M protein is identified on protein electrophoresis.NormalNo definitive M protein is identified on protein electrophoresis.[facility] Comment on above:Order Comment: Specimen Type: BLOOD SPECIMEN Ordering Facility[facility] Address: [address] [place], [place] [address]Performed By: #### [id number] #### [facility] CLIA [id number] [address] [place] [address] [place] AMERICAProtein.monoclonal Elph [Mass/Vol]0.00 g/dLNormal<=0.00[facility] HospitalComment on above:Order Comment: Specimen Type: BLOOD SPECIMEN Ordering Facility: [facility] Address: [address] [place], [place] [address]Performed By: #### [id number] #### [facility] CLIA [id number] [address] [place] [address] [address] Trini [place] [facility] for ChildrenComment on above:Order Comment: Specimen Type: BLOOD SPECIMEN Ordering Facility[facility] Address: [address] [place], [place] [address]Performed By: #### [id number] #### [facility] CLIA [id number] [address] [place] [address] STATES OF AMERICAProt SerPl-mCncon 12-25-2023 Protein [Mass/Vol]6.3 g/dLNormal6.3-8.0[facility] HospitalComment on above:Order Comment: Specimen Type: BLOOD SPECIMEN Ordering Facility: [facility] Address: [address] [place], [place] [address]Performed By: #### 1988-5, 01874-3 #### [facility] CLIA [id number] [address] [address] [place] [facility] SerPl-aCncon 12-25-2023 TSH Qn2.300 m[IU]/LNormal0.270-4.200[facility] HospitalComment on above:Order Comment: Specimen Type: BLOOD SPECIMEN Ordering Facility: [facility] Address: [address] [place], [place] [address]Performed By: #### 1988-5, 86132-8 #### [facility] CLIA [id number] [address] [place] [address] [facility]Bal[facility] metabolic 2000 panelon 25-04-0163Ttoxy gap [Moles/Vol]12 mmol/LNormal8-15[facility] HospitalComment on above:Order Comment: Specimen Type: BLOOD SPECIMEN Ordering Facility: [facility] Address: [address] [place], [place] [address]Performed By: #### MPO #### [facility] CLIA [id number] [address] [place] [address] 32646Udbessw [Mass/Vol]9.5 mg/dLNormal8.5-10.2[facility] HospitalComment on above:Order Comment: Specimen Type: BLOOD SPECIMEN Ordering Facility: [facility] Address: [address] [place], [place] [address]Performed By: #### MPO #### [facility] CLIA [id number] [address] [place] [address] 40455Prpseesq [Moles/Vol]94 mmol/CLpv19-301Trjpdxkpd HospitalComment on above:Order Comment: Specimen Type: BLOOD SPECIMEN Ordering Facility[facility] Address: [address] [place], [place] [address]Performed By: #### MPO #### [facility] CLIA [id number] [address] [place] [address] 21092LN1 [Moles/Vol]28 mmol/PLudsvr99-41Yifsgxvuc HospitalComment on above:Order Comment: Specimen Type: BLOOD SPECIMEN Ordering Facility: [facility] Address: [address] [place], [place] [address]Performed By: #### MPO #### [facility] CLIA [id number] [address] [place] [address] 532[address]Akdlurjvmm [Mass/Vol]1.27 mg/dLHigh0.73-1.22 [facility] HospitalComsurgeons [facility] on above:Order Comment: Specimen Type: BLOOD SPECIMEN Ordering Facility: [facility] Address: [address] [place] [address] 6[address]Konbcjetu By: #### MPO #### [facility] CLIA [id number] [address] [place] [address] 18691Sqvxtozikh and Glomerular filtration rate.predicted panel (S/P/Bld)60 mL/min/1.73m???Normal>=60HiPhaneuf HospitalComsurgeons choice medical center on above: Order Comment: Specimen Type: BLOOD SPECIMEN Ordering Facility: [facility] Address: [address] [place] [address]Tvzolv Comment: Estimated Glomerular Filtration Rate (eGFR) is [...] reflect actual GFR.Performed By: #### MPO #### [facility] CLIA [id number] [address] [place] [address] 42636Ainluaj [Mass/Vol]134 mg/mRZytb37-34Zqmefajrc HospitalComsurgeons choice medical center on above:Order Comment: Specimen Type: BLOOD SPECIMEN Ordering Facility: [facility] Address: [address] [place] [address] 43523Ijdlus Comment: The English Diabetes Association (ADA) provides guidance for cutoff [...] Standards of Medical Care in Diabetes 2016, English Diabetes Association. Diabetes Care. 2016.39(Suppl 1).Performed By: #### MPO #### [facility] CLIA [id number] [address] [place] [address] 33662Efkdbqsyh [Moles/Vol]3.6 mmol/LLow3.7-5.1[facility] HospitalComment on above:Order Comment: Specimen Type: BLOOD SPECIMEN Ordering Facility: [facility] Address: [address] [place], [place] [address]Performed By: #### MPO #### [facility] CLIA [id number] [address] [place] [address] 41350Wpbqir [Moles/Vol]134 mmol/QTjm096-653Memlqaphe HospitalComment on above:Order Comment: Specimen Type: BLOOD SPECIMEN Ordering Facility: [facility] Address: [address] [place], [place] [address]Performed By: #### MPO #### [facility] CLIA [id number] [address] [place] [address] 00577Sbwm nitrogen [Mass/Vol]25 mg/dLHigh9-24[facility] HospitalComment on above:Order Comment: Specimen Type: BLOOD SPECIMEN Ordering Facility: [facility] Address: [address] [place], [place] [address]Performed By: #### MPO #### [facility] CLIA [id number] [address] [place] [address] 650[address]Xnbcb gap [Moles/Vol]14 mmol/LNormal8-15[facility] HospitalComment on above:Order Comment: Specimen Type: BLOOD SPECIMEN Ordering Facility[facility] Address: [address] [place], [place] [address]Performed By: #### 1988-5, 71002-6 #### [facility] CLIA [id number] [address] [place] [address] [place] AMERICACalcium [Mass/Vol]9.4 mg/dL Normal8.5-10.2[facility]st HospitalComment on above:Order Comment: Specimen Type: BLOOD SPECIMEN Ordering Facility: [facility] Address: [address] [place], [place] [address]Performed By: #### 1987-10, #### [facility] CLIA [id number] [address] [place] [address] [place] OF AMERICAChloride [Moles/Vol]95 mmol/L Fes71-454Rblbcvdfs HospitalComment on above:Order Comment: Specimen Type: BLOOD SPECIMEN Ordering Facility: [facility] Address: [address] [place], [place] [address]Performed By: #### 1987-10, #### [facility] CLIA [id number] [address] [place] [address] [place] AMERICACO2 [Moles/Vol]27 mmol/L Aykfey47-94Loflqzutw HospitalComment on above:Order Comment: Specimen Type: BLOOD SPECIMEN Ordering Facility: [facility] Address: [address] [place], [place] [address]Performed By: #### 1987-10, #### [facility] CLIA [id number] [address] [place] [address] [place] AMERICACreatinine [Mass/Vol]1.34 mg/dLHigh0.73-1.22[facility]st HospitalComment on above:Order Comment: Specimen Type: BLOOD SPECIMEN Ordering Facility: [facility] Address: [address] [place], [place] [address]Performed By: #### 1987-10, #### [facility] CLIA [id number] [address] [place] [address] [place] AMERICACreatinine and Glomerular filtration rate.predicted panel (S/P/Bld)56 mL/min/1.73m???Low>=60[facility]st HospitalComment on above:Order Comment: Specimen Type: BLOOD SPECIMEN Ordering Facility: [facility] Address: [address] [place], [place] [address]Result Comment: Estimated Glomerular Filtration Rate (eGFR) is [...] reflect actual GFR.Performed By: #### 1987-10, #### [facility] CLIA [id number] [address] [place] [address] [place] AMERICAGlucose [Mass/Vol]100 mg/dL Kixg90-96Dlcsuvlgj HospitalComment on above:Order Comment: Specimen Type: BLOOD SPECIMEN Ordering Facility: [facility] Address: [address] [place], [place] [address]Result Comment: The English Diabetes Association (ADA) provides guidance for cutoff [...] Standards of Medical Care in Diabetes 2016, English Diabetes Association. Diabetes Care. 2016.39(Suppl 1).Performed By: #### 1987-10, #### [facility] CLIA [id number] [address] [place] [address] [place] AMERICAPotassium [Moles/Vol]3.6 mmol/LLow3.7-5.1[facility] HospitalComment on above:Order Comment: Specimen Type: BLOOD SPECIMEN Ordering Facility: [facility] Address: [address] [place], [place] [address]Performed By: #### 1987-10, #### [facility] CLIA [id number] [address] [place] [address] [place] AMERICASodium [Moles/Vol]136 mmol/L Fickdn597-820Bgszkofme HospitalComment on above:Order Comment: Specimen Type: BLOOD SPECIMEN Ordering Facility: [facility] Address: [address] [id number] By: #### 1987-10, 91686-6 #### [facility] CLIA [id number] [address] [place] [address] [place] AMERICAUrea nitrogen [Mass/Vol]26 mg/dLHigh9-24[facility]st HospitalComment on above:Order Comment: Specimen Type: BLOOD SPECIMEN Ordering Facility: [facility] Address: [address] [place], [place] [address]Performed By: #### 1987-10, #### [facility] CLIA [id number] [address] [place] [address] [place] AMERICAMagnesium SerPl-mCncon 72-97-5986Hopfnfblt [Mass/Vol]2.2 mg/dLNormal1.7-2.3[facility]st HospitalComment on above:Order Comment: Specimen Type: BLOOD SPECIMEN Ordering Facility: [facility] Address: [address] [place], [place] [address]Performed By: #### 1987-10, #### [facility] [place] [id number] [address] 12-24-2023 [facility]: [id number] Author: SONIYA JO RN Service: ? Author Type: Registered Nurse Type: Nursing Progress Note Filed: 12/24/2023 22:50 Note Text: 1910- Assumed care of pt from outgoing RN, pt seen lying in bed A/O X 3, on RA, no pain or discomfort reported. Safety measures in place and call light within reach. Will continue to monitor.[facility] ID: [id number] Author: ELIZABETH ROWAN, EVAN Service: Nursing Author Type: Registered Nurse Type: Nursing Progress Note Filed: 12/24/2023 10:54 Note Text: Spoke with Dr Pimentel regarding orders for LR bolus 500ml, and PO lasix 80mg. Instructed to given bolus first, then Lasix an hour after.[facility] ID: [id number] Author: DWIGHT GLYNN, RN Service: Nursing Author Type: Registered Nurse Type: Nursing Progress Note Filed: 12/24/2023 07:56 Note Text: 0200: Spoke with overnight caregiver ADRIENNE regarding patient BP of 86/59. Pt is asymptomatic and ADRIENNE is not worried about the blood pressure at this time. I was advised to page again if BP goes below 80 or if patient becomes symptomatic. NormalHillgallup ind[facility] center HospitalUrate SerPl-mCncon 64-48-4205Kawdg [Mass/Vol]7.6 mg/dL Normal4.0-8.1[facility] HospitalComment on above:Order Comment: Specimen Type: BLOOD SPECIMEN Ordering Facility: [facility] Address: [address] [place], [place] [address]Performed By: #### MPO #### [facility] CLIA [id number] [address] [place] [id number] CHEST 2V FRONTAL/LATon 55-71-8577SU CHEST 2V FRONTAL/LAT* * *Final Report* * [...] MD on Dec 25 2023 7:53AM EST [id number] HospitalBasi metabolic 2000 panelon 83-32-0088Cvtqn gap [Moles/Vol]17 mmol/LHigh8-15[facility]st HospitalComment on above:Order Comment: Specimen Type: BLOOD SPECIMENOrdering Facility: [facility] Address:[address] [place], [place] [address]Performed By: #### 29992-4, 20714-5 ####[facility] [id number] [place] [address] [place] AMERICACalcium [Mass/Vol]9.5 mg/dLNormal8.5-10.2[facility] HospitalComment on above:Order Comment: Specimen Type: BLOOD SPECIMENOrdering Facility: [facility] Address:[address] [place], [place] [address]Performed By: #### 88629-3, 02014-3 ####[facility]IA [id number] [place] [address] [place] AMERICAChloride [Moles/Vol]97 mmol/HQzl62-680Nmwjcthxv HospitalComment on above:Order Comment: Specimen Type: BLOOD SPECIMENOrdering Facility: [facility] Address:[address] [place] [address] Performed By: #### 91215-6, 90583-4 ####[facility]IA [id number] [place] [address] [place] AMERICACO2 [Moles/Vol] 27 mmol/GBojvhi42-08Llggmfwdg HospitalComment on above:Order Comment: Specimen Type: BLOOD SPECIMENOrdering Facility: [facility] Address:[address] [place], [place] [address]Performed By: #### 89909-1, 85644-2 ####[facility]IA [id number] [place] [address] [place] AMERICACreatinine [Mass/Vol]1.14 mg/dLNormal0.73-1.22[facility] HospitalComment on above:Order Comment: Specimen Type: BLOOD SPECIMENOrdering Facility: [facility] Address:[address] [place], [place] [address]Performed By: #### 44463-0, 80828-2 ####[facility]IA [id number] [place] [address] [place] Creatinine and Glomerular filtration rate.predicted panel (S/P/Bld)68 mL/min/1.73m???Normal>=60[facility] HospitalComsurgeons choice [facility] on above:Order Comment: Specimen Type: BLOOD SPECIMENOrdering Facility: [facility] Address:[address] [place], [place] [address]Result Comment: Estimated Glomerular Filtration Rate (eGFR) is calculated using the 2020 CKD-EPI creatinine equation. This equation utilizes serum creatinine, sex, and age as parameters. The creatinine assay has traceable calibration to isotope dilution-mass spectrometry. Refer to KDIGO guidelines for clinical interpretation. In patients with unstable renal function, e.g. those with acute kidney injury, the eGFR may not accurately reflect actual GFR.Performed By: #### 15398-3, 83617-4 ####[facility]IA [id number] [place] [address] [place] AMERICAGlucose [Mass/Vol]113 mg/eQNvtk73-56Avqdtqspg HospitalComment on above:Order Comment: Specimen Type: BLOOD SPECIMENOrdering Facility: [facility] Address:[address] [place], [place] [address]Result Comment: The English Diabetes Association (ADA) provides guidance for cutoff [...] Standards of Medical Care in Diabetes 2016, English Diabetes Association. Diabetes Care. 2016.39(Suppl 1).Performed By: #### 02951-2, 04505-6 ####[facility]IA [id number] [place] [address] [place] AMERICAPotassium [Moles/Vol]3.8 mmol/LNormal3.7-5.1 [facility] HospitalComment on above:Order Comment: Specimen Type: BLOOD SPECIMENOrdering Facility: [facility] Address:[address] [place], [place] [address]Performed By: #### 61022-5, 56121-1 ####[facility]IA [id number] [place] [address] [place] AMERICASodium [Moles/Vol]141 mmol/WKrdecu383-585Sjjpfemzz Hospital Comment on above:Order Comment: Specimen Type: BLOOD SPECIMENOrdering Facility: [facility] Address:[address] [place] [address] Performed By: #### 58558-6, 59274-4 ####[facility]IA [id number] [place] [address] [place] AMERICAUrea nitrogen [Mass/Vol]15 mg/dLNormal9-24[facility] HospitalComment on above:Order Comment: Specimen Type: BLOOD SPECIMENOrdering Facility: [facility] Address:[address] [place], [place] [address]Performed By: #### 84504-9, 70876-8 ####[facility]IA [id number] [place] [address] [place] AMERICAMagnesium SerPl-mCncon 20-48-4044Kvidrmgzp [Mass/Vol]1.9 mg/dLNormal1.7-2.3[facility] HospitalComment on above:Order Comment: Specimen Type: BLOOD SPECIMENOrdering Facility: [facility] Address:[address] [place], [place] [address]Performed By: #### 45714- 9, 36426-3 ####[facility]ORYCLIA [id number] [place] [address] [place] AMERICABasic metabolic 2000 panelon 62-60-1196Bzmyd gap [Moles/Vol]16 mmol/LHigh8-15[facility] HospitalComment on above:Order Comment: Specimen Type: BLOOD SPECIMEN Ordering Facility: [facility] Address: [address] [place], [place] [address]Performed By: #### MPO #### [facility] CLIA [id number] [address] [place] [address]Agaxumh [Mass/Vol]9.0 mg/dLNormal8.5-10.2[facility] HospitalComment on above:Order Comment: Specimen Type: BLOOD SPECIMEN Ordering Facility: [facility] Address: [address] [place], [place] [address]Performed By: #### MPO #### [facility] CLIA [id number] [address] [place] [address]Gcyeytvi [Moles/Vol]99 mmol/UZowvlr97-291Rdpfnyqir HospitalComment on above:Order Comment: Specimen Type: BLOOD SPECIMEN Ordering Facility: [facility] Address: [address] [place], [place] [address]Performed By: #### MPO #### [facility] CLIA [id number] [address] [place] [address] 18766GX1 [Moles/Vol]24 mmol/PUbiiep31-06Gumcfgwjh HospitalComment on above:Order Comment: Specimen Type: BLOOD SPECIMEN Ordering Facility: [facility] Address: [address] [place], [place] [address]Performed By: #### MPO #### [facility] CLIA [id number] [address] [place] [address] 967[address]Uzrgssskpo [Mass/Vol]0.98 mg/dLNormal0.73-1.22 [facility] HospitalComment on above:Order Comment: Specimen Type: BLOOD SPECIMEN Ordering Facility: [facility] Address: [address] [place], [place] [address]Performed By: #### MPO #### [facility] CLIA [id number] [address] [place] [address]Adkohkcces and Glomerular filtration rate.predicted panel (S/P/Bld)82 mL/min/1.73m???Normal>=60[facility] HospitalComment on above: Order Comment: Specimen Type: BLOOD SPECIMEN Ordering Facility: [facility] Address: [address] [place], [place] [address]Dhmkgu Comment: Estimated Glomerular Filtration Rate (eGFR) is [...] reflect actual GFR.Performed By: #### MPO #### [facility] CLIA [id number] [address] [place] [address]Dncnpyy [Mass/Vol]109 mg/yRBpia77-76Ifbplovee HospitalComment on above:Order Comment: Specimen Type: BLOOD SPECIMEN Ordering Facility: [facility] Address: [address] [place], [place] [address]Reydgo Comment: The English Diabetes Association (ADA) provides guidance for cutoff [...] Standards of Medical Care in Diabetes 2016, English Diabetes Association. Diabetes Care. 2016.39(Suppl 1).Performed By: #### MPO #### [facility] CLIA [id number] [address] [place] [address] 126[address]Olaezmrpt [Moles/Vol]3.3 mmol/LLow3.7-5.1[facility] HospitalComment on above:Order Comment: Specimen Type: BLOOD SPECIMEN Ordering Facility: [facility] Address: [address] [place], [place] [address]Tqltldazp By: #### MPO #### [facility] CLIA [id number] [address] [place] [address] 47370Kzsmbs [Moles/Vol]139 mmol/QWyuxzr419-051Aladcusnq HospitalComment on above:Order Comment: Specimen Type: BLOOD SPECIMEN Ordering Facility: [facility] Address: [address] [place], [place] [address]Performed By: #### MPO #### [facility] CLIA [id number] [address] [place] [address] 058[address]Qhzm nitrogen [Mass/Vol]12 mg/dLNormal9-24[facility] HospitalComment on above:Order Comment: Specimen Type: BLOOD SPECIMEN Ordering Facility: [facility] Address: [address] [place], [place] [address]Performed By: #### MPO #### [facility] CLIA [id number] [address] [place] [address] 425[address]TIC panel Auto (Bld)on 26-23-3803Kuqfpjvepxe distribution width (RBC) [Ratio]15.3 %High11.5-15.0[facility] HospitalComment on above:Order Comment: Specimen Type: BLOOD SPECIMEN Ordering Facility: [facility] Address: [address] [place], [place] [address]Performed By: #### MPO #### [facility] CLIA [id number] [address] [place] [address] 93706Jyokoslapg (Bld) [Volume fraction]39.3 %Normal 39.0-51.0[facility] HospitalComment on above:Order Comment: Specimen Type: BLOOD SPECIMEN Ordering Facility: [facility] Address: [address] [place] [address]Mkddyeqof By: #### MPO #### [facility] CLIA [id number] [address] [place] [address] 58496Vsnjzwkeir (Bld) [Mass/Vol]12.7 g/dLLow13.0-17.0 [facility] HospitalComment on above:Order Comment: Specimen Type: BLOOD SPECIMEN Ordering Facility: [facility] Address: [address] [place] [id number] By: #### MPO #### [facility] CLIA [id number] [address] [place] [address] 85103KWI (RBC) [Entitic mass]29.6 qpEljcos69.0-34.0 [facility] HospitalComment on above:Order Comment: Specimen Type: BLOOD SPECIMEN Ordering Facility: [facility] Address: [address] [place], [place] [address]Performed By: #### MPO #### [facility] CLIA [id number] [address] [place] [address] 953[address]QJEU (RBC) [Mass/Vol]32.3 g/gWEyjtvh67.5-36.0 [facility] HospitalComment on above:Order Comment: Specimen Type: BLOOD SPECIMEN Ordering Facility: [facility] Address: [address] [place], [place] [address]Performed By: #### MPO #### [facility] CLIA [id number] [address] [place] [address] 50903SJO (RBC) [Entitic vol]91.6 pWKxbnfj13.0-100.0 [facility] HospitalComment on above:Order Comment: Specimen Type: BLOOD SPECIMEN Ordering Facility: [facility] Address: [address] [place], [place] [address]Performed By: #### MPO #### [facility] CLIA [id number] [address] [place] [address]Nrehghudz RBC (Bld) [#/Vol]10*3/uLNormal<0.01 [facility] HospitalComment on above:Order Comment: Specimen Type: BLOOD SPECIMEN Ordering Facility: [facility] Address: [address] [place], [place] [address]Performed By: #### MPO #### [facility] CLIA [id number] [address] [place] [address] 46312Oxprtgys mean volume (Bld) [Entitic vol]10.2 fL Normal9.0-12.7[facility] HospitalComment on above:Order Comment: Specimen Type: BLOOD SPECIMEN Ordering Facility: [facility] Address: [address] [place] [address]Bhyvbtrud By: #### MPO #### [facility] CLIA [id number] [address] [place] [address] 03443Utyzgbvju (Bld) [#/Vol]250 10*3/vSAkpmtg748-766 [facility] HospitalComment on above:Order Comment: Specimen Type: BLOOD SPECIMEN Ordering Facility: [facility] Address: [address] [place], [place] [address]Performed By: #### MPO #### [facility] CLIA [id number] [address] [place] [address] 67863ZWW (Bld) [#/Vol]4.29 10*6/uLNormal4.20-6.00 [facility] HospitalComment on above:Order Comment: Specimen Type: BLOOD SPECIMEN Ordering Facility: [facility] Address: [address] [place], [place] [address]Performed By: #### MPO #### [facility] CLIA [id number] [address] [place] [address] 00129LKG (Bld) [#/Vol]5.83 10*3/uLNormal3.70-11.00 [facility] HospitalComment on above:Order Comment: Specimen Type: BLOOD SPECIMEN Ordering Facility: [facility] Address: [address] [place], [place] [address]Performed By: #### MPO #### [facility] CLIA [id number] [address] [place] [address] 14416QKEBJGU PROGon 21-26-3899NPILNSP PRONO ID: [id number] Author: TITA LANDRY APRN.SEO SPECIALIST Service: Thoracic Surgery Author Type: Nurse Practitioner Type: Consult Progress Note Filed: 12/22/2023 12:57 Note Text: [facility] THORAC[facility] SURGERY CONSULT PROGRESS NOTE Sav Raymundo [id number] PRIMARY SERVICE: Internal Medicine HOSPITAL DAY: # [...] from prior. No discernible pneumothorax. Dictated by: MD EULALIO KLEIN 12/21/2023: Pending ASSESSMENT Sav Raymundo is a 73 y/o male referred by Alpa Oliva CNP for an opinion regarding management of recurrent right pleural effusion. 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 Remigio Landry APRN.SEO SPECIALIST Pager [phone] 12/22/2023 12:17 PMNormalHillcrest HospitalMagnesium SerPl-mCncon 12-93-1567Otmoipneq [Mass/Vol]1.6 mg/dLLow1.7-2.3[facility] HospitalComment on above:Order Comment: Specimen Type: BLOOD SPECIMEN Ordering Facility: [facility] Address: [address] [place], [place] [address]Performed By: #### MPO #### [facility] CLIA [id number] [address] [place], [place] [address]XR ABDOMEN 1V SUPINEon 27-58-5702VK ABDOMEN 1V SUPINE* * *Final Report* * [...] Date/Time: Dec 23 2023 12:18A Dictated by: REGGEI PALMER MD This examination was interpreted and the report reviewed and electronically signed by: REGGIE PALMER MD on Dec 23 2023 12:20AM EST [id number] Israel Deaconess Hospital25([place])D3 SerPl-[facility]on 12-21-2023 25-hydroxyvitamin D3 [Mass/Vol]37.2 ng/aJDhdmya75.0-80.0[facility] Comment on above:Order Comment: Specimen Type: BLOOD SPECIMEN [facility] Address: [address] [place], [place] [address]Performed By: #### 57733-7 #### [facility] CLIA [id number] [address] [place], [place] [address] [address] 12-21-2023 [facility]ALTHH[facility] ID: [id number] Author: ISABEL STRINGER RT(Tj) Service: Radiology Author Type: Tuft Machine Operator Type: Allied Health Filed: 12/21/2023 18:11 Note [...] PATIENT PRESENTS WITH AN IMPLANTABLE OR ATTACHED IRONER MACHINE: No RADIOLOGY DEPARTMENT: Ultrasound PERIPHERAL IV DATA: Not applicable SIGNED BY: RT Geri(R) December 21, 2023 6:11 PMNormalBrigham and Women's Hospital panel Auto (Bld)on 12-21-2023 Erythrocyte distribution width (RBC) [Ratio]15.3 %High11.5-15.0[facility] HospitalComment on above:Order Comment: Specimen Type: BLOOD SPECIMEN Ordering Facility[facility] Address: [address] [place], [place] [address]Performed By: #### 68583-4 #### [facility] CLIA [id number] [address] [place] [address] [place] AMERICAHematocrit (Bld) [Volume fraction]36.3 %Low39.0-51.0[facility] HospitalComment on above:Order Comment: Specimen Type: BLOOD SPECIMEN Ordering Facility: [facility] Address: [address] [place], [place] [address]Performed By: #### 08994-7 #### [facility] CLIA [id number] [address] [place] [address] [place] AMERICAHemoglobin (Bld) [Mass/Vol] 11.8 g/dLLow13.0-17.0[facility] HospitalComment on above:Order Comment: Specimen Type: BLOOD SPECIMEN Ordering Facility: [facility] Address: [address] [place], [place] [address]Performed By: #### 93239-9 #### [facility] CLIA [id number] [address] [place] [address] [place] AMERICAMCH (RBC) [Entitic mass]29.8 qyQzijtp22.0-34.0[facility] HospitalComment on above:Order Comment: Specimen Type: BLOOD SPECIMEN Ordering Facility: [facility] Address: [address] [place], [place] [address]Performed By: #### 85208-7 #### [facility] CLIA [id number] [address] [place], [place] [address]MCHC (RBC) [Mass/Vol]32.5 g/fLLitacr82.5-36.0[facility] HospitalComment on above:Order Comment: Specimen Type: BLOOD SPECIMEN Ordering Facility: [facility] Address: [address] [place], [place] [address]Performed By: #### 64066-9 #### [facility] CLIA [id number] [address] [place], [place] [address]MCV (RBC) [Entitic vol]91.7 lSSgasyj86.0-100.0[facility] HospitalComment on above:Order Comment: Specimen Type: BLOOD SPECIMEN Ordering Facility[facility] Address: [address] [place], [place] [address]Performed By: #### 73496-2 #### [facility] CLIA [id number] [address] [place], [place] [address]ucleated RBC (Bld) [#/Vol] 10*3/uLNormal<0.01[facility] HospitalComment on above:Order Comment: Specimen Type: BLOOD SPECIMEN Ordering Facility: [facility] Address: [address] [place], [place] [address]Performed By: #### 08655-4 #### [facility] CLIA [id number] [address] [place] [address] [place] [facility] WEST CAMPUSPlatelet mean volume (Bld) [Entitic vol]10.0 fLNormal9.0-12.7[facility] HospitalComment on above:Order Comment: Specimen Type: BLOOD SPECIMEN Ordering Facility[facility] Address: [address] [place], [place] [address]Performed By: #### 08315-4 #### [facility] CLIA [id number] [address] [place], [place] [address]Platelets (Bld) [#/Vol]215 10*3/oRJkzyrc660-643Ipvgkdimd HospitalComment on above:Order Comment: Specimen Type: BLOOD SPECIMEN Ordering Facility: [facility] Address: [address] [place], [place] [address]Performed By: #### 60964-4 #### [facility] CLIA [id number] [address] [place] [address] (d) [#/Vol]3.96 10*6/uLLow4.20-6.00[facility] HospitalComment on above:Order Comment: Specimen Type: BLOOD SPECIMEN Ordering Facility: [facility] Address: [address] [place], [place] [address]Performed By: #### 49613-1 #### [facility] CLIA [id number] [address] [place], [place] [address]W (d) [#/Vol]6.12 10*3/uLNormal3.70-11.00Hillcrest HospitalComment on above:Order Comment: Specimen Type: BLOOD SPECIMEN Ordering Facility: [facility] Address: [address] [place], [place] [address]Performed By: #### [id number] #### [facility] CLIA [id number] [address] [place], [place] [address]CONSULTon [id number] HNO ID: [id number] Author: RONALDO FLOOD MD, PhD Service: Thoracic Surgery Author Type: Physician Type: Consults Filed: 12/22/2023 10:17 Note Text: [facility] CONSULT NOTE Sav Raymundo [id number] Requesting Provider: Alpa Oliva CNP Cardiothoracic Physician: Ronaldo Flood MD Admit Date: 12/20/2023 LOS : 1 Chief Complaint: Recurrent Effusion HPI: Sav Raymundo is a 73 y/o male referred by Alpa Oliva CNP for an opinion regarding management of recurrent right pleural effusion. 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, right Pleurx catheter [...] reviewed: No additional systems (more content not included)...NormalHillcrest HospitalCRP SerPl-mCncon 83-68-8766QXS [Mass/Vol]1.8 mg/dLHigh<0.9Hillcrest HospitalComment on above:Order Comment: Specimen Type: BLOOD SPECIMEN Ordering Facility: [facility] Address: [address] [place], [place] [address]Performed By: #### #### [facility] CLIA [id number] [address] [place] [address] [place] OF AMERICAComprehensive metabolic 2000 panelon 97-06-4957Jakbgke [Mass/Vol]3.4 g/dLLow3.9-4.9Hillcre HospitalComment on above:Order Comment: Specimen Type: BLOOD SPECIMEN Ordering Facility: [facility] Address: [address] [place], [place] [address]Performed By: #### #### [facility] CLIA [id number] [address] [place] [address] [place] AMERICAALP [Catalytic activity/Vol] 100 U/PLetvry21-233Xkrmiidrj HospitalComment on above:Order Comment: Specimen Type: BLOOD SPECIMEN Ordering Facility: [facility] Address: [address] [place], [place] [address]Performed By: #### #### [facility] CLIA [id number] [address] [place] [address] [place] AMERICAALT [Catalytic activity/Vol] 11 U/QEjjuwb05-24Aowqxhasd HospitalComment on above:Order Comment: Specimen Type: BLOOD SPECIMEN Ordering Facility: [facility] Address: [address] [place], [place] [address]Performed By: #### 1987-10, #### [facility] CLIA [id number] [address] [place] [address] [place] AMERICAAnion gap [Moles/Vol]13 mmol/LNormal8-15Hillcrest HospitalComment on above:Order Comment: Specimen Type: BLOOD SPECIMEN Ordering Facility: [facility] Address: [address] [place], [place] [address]Performed By: #### 1987-10, #### [facility] CLIA [id number] [address] [place] [address] [place] AMERICAAST [Catalytic activity/Vol] 18 U/EDkqxwo77-40Lrspnqote HospitalComment on above:Order Comment: Specimen Type: BLOOD SPECIMEN Ordering Facility: [facility] Address: [address] [place], [place] [address]Performed By: #### #### [facility] CLIA [id number] [address] [place] [address] [place] AMERICABilirubin [Mass/Vol]0.8 mg/dL Normal0.2-1.3Hillcrest HospitalComment on above:Order Comment: Specimen Type: BLOOD SPECIMEN Ordering Facility: [facility] Address: [address] [place], [place] [address]Performed By: #### 1987-10, #### [facility] CLIA [id number] [address] [place] [address] [place] AMERICACalcium [Mass/Vol]8.7 mg/dL Normal8.5-10.2Hillcrest HospitalComment on above:Order Comment: Specimen Type: BLOOD SPECIMEN Ordering Facility: [facility] Address: [address] [place], [place] [address]Performed By: #### 1987-10, #### [facility] CLIA [id number] [address] [place] [address] [place] AMERICAChloride [Moles/Vol]106 mmol/WYsxedz31-897Ztxxurekz HospitalComment on above:Order Comment: Specimen Type: BLOOD SPECIMEN Ordering Facility: [facility] Address: [address] [place], [place] [address]Performed By: #### #### [facility] CLIA [id number] [address] [place] [address] [place] AMERICACO2 [Moles/Vol]19 mmol/LLow 22-30Hillcre HospitalComment on above:Order Comment: Specimen Type: BLOOD SPECIMEN Ordering Facility: [facility] Address: [address] [place], [place] [address]Performed By: #### 1987-10, #### [facility] CLIA [id number] [address] [place] [address] [place] AMERICACreatinine [Mass/Vol]0.86 mg/dLNormal0.73-1.22Hillcre HospitalComment on above:Order Comment: Specimen Type: BLOOD SPECIMEN Ordering Facility: [facility] Address: [address] [place], [place] [address]Performed By: #### 1987-10, #### [facility] CLIA [id number] [address] [place] [address] [place] AMERICACreatinine and Glomerular filtration rate.predicted panel (S/P/Bld)92 mL/min/1.73m???Normal>=60[facility] HospitalComment on above:Order Comment: Specimen Type: BLOOD SPECIMEN Ordering Facility: [facility] Address: [address] [place], [place] [address]Result Comment: Estimated Glomerular Filtration Rate (eGFR) is [...] reflect actual GFR.Performed By: #### 1987-10, #### [facility] CLIA [id number] [address] [place] [address] [place] AMERICAGlucose [Mass/Vol]115 mg/dL Nose57-57Oamxpfhzy HospitalComment on above:Order Comment: Specimen Type: BLOOD SPECIMEN Ordering Facility: [facility] Address: [address] [place], [place] [address]Result Comment: The English Diabetes Association (ADA) provides guidance for cutoff [...] Standards of Medical Care in Diabetes 2016, English Diabetes Association. Diabetes Care. 2016.39(Suppl 1).Performed By: #### #### [facility] CLIA [id number] [address] [place] [address] [place] AMERICAPotassium [Moles/Vol]3.9 mmol/LNormal3.7-5.1[facility] HospitalComment on above:Order Comment: Specimen Type: BLOOD SPECIMEN Ordering Facility: [facility] Address: [address] [place], [place] [address]Performed By: #### #### [facility] CLIA [id number] [address] [place] [address] [place] AMERICAProtein [Mass/Vol]6.4 g/dL Normal6.3-8.0[facility] HospitalComment on above:Order Comment: Specimen Type: BLOOD SPECIMEN Ordering Facility: [facility] Address: [address] [place], [place] [address]Performed By: #### #### [facility] CLIA [id number] [address] [place] [address] [place] AMERICASodium [Moles/Vol]138 mmol/L Hsacbz050-115Xjwuhvrfl HospitalComment on above:Order Comment: Specimen Type: BLOOD SPECIMEN Ordering Facility: [facility] Address: [address] [place], [place] [address]Performed By: #### #### [facility] CLIA [id number] [address] [place] [address] [place] AMERICAUrea nitrogen [Mass/Vol]12 mg/dLNormal9-24[facility] HospitalComment on above:Order Comment: Specimen Type: BLOOD SPECIMEN Ordering Facility: [facility] Address: [address] [place], [place] [address]Performed By: #### 1988-5, 67785-4 #### [facility] CLIA [id number] [address] [place] [address] [place] AMERICACyclic citrullinated peptide IgG Qnon 63-56-0142UPW ANTIBODY IGG QUALITATIVENegativeNormalNegativeHillgallup indian medical center HospitalComment on above:Order Comment: Specimen Type: BLOOD SPECIMEN Ordering Facility: [facility] Address: [address] [place], [place] [address]Performed By: #### 74720-1 #### [facility] CLIA [id number] [address] [place], [place] [address] [address] [place] OF AMERICAESR Westergren method (Bld) [Velocity]on 97-15-6243VES (Bld) [Velocity]33 mm/hHigh0-15[facility] Comment on above:Order Comment: Specimen Type: BLOOD SPECIMEN Ordering Facility: [facility] Address: [address] [place], [place] [address]Performed By: #### MPO #### [facility] CLIA [id number] [address] [place] [address] [place], [place] [address]HISTORY PHYSICALon 53-12-6214MDXNRBG PHYSICALHNO ID: [id number] Author: JOSE ANTONIO HOPPER MD Service: Family [...] not included)...NormalHillcrest HospitalNuclear Ab IA Ql (S)on 25-55-7660CDA SCR QUALNegativeNormalNegativeHillcrest HospitalComment on above:Order Comment: Specimen Type: BLOOD SPECIMEN Ordering Facility: [facility] Address: [address] [place], [place] [address]Result Comment: The qualitative antinuclear antibody screen test performed using the following antigens: dsDNA, Chromatin, Ribosomal P, SS-A 60, SS-A 52, SS-B, Sm, SmRNP, IMMIGRATION COORDINATOR A, IMMIGRATION COORDINATOR 68, Scl- 70, Alice-1,and Centromere B. Methodology: Multiplex flow immunoassay.Performed By: #### 13844-8 #### [facility] CLIA [id number] [address] [place] [address] [place] AMERICAPROTEINASE 3 ANTIBODYon 80-98-5720Axfuutxxqx 3 Ab Qn (S)<0.2Normal<1.0[facility]st HospitalComment on above:Order Comment: Specimen Type: BLOOD SPECIMEN Ordering Facility: [facility] Address: [address] [place], [place] [address]Performed By: #### 30082-2 #### [facility] IA [id number] [address] [place] [address] [place] AMERICARheumatoid fact SerPl-aCncon 02-51-4565Qenrbqjzgc factor Qn[IU]/mLNormal<16Hillcrest HospitalComment on above:Order Comment: Specimen Type: BLOOD SPECIMEN Ordering Facility: [facility] Address: [address] [place], [place] [address]Performed By: #### 93371-9 #### [facility] CLIA [id number] [address] [place] [address] [place] OF AMERICAUS ABD RIGHT UPPER QUADRANT on 74-65-1687YT ABD RIGHT UPPER QUADRANT* * *Final Report* [...] FERMIN MD on Dec 22 2023 3:17PM [facility] [id number]_[id number] Medical CenterXR Chest PA and Lateralon 32-04-2773ELRTEWVFCQ: Stable exam with a persistent right pleural effusion. Transcribed Using Voice Recognition Transcribe Date/Time: Dec 21 2023 10:02A Dictated by: JEFFREY KRUEGER MD This examination was interpreted and the report reviewed and electronically signed by: JEFFREY KRUEGER MD on Dec 21 2023 10:03AM [facility]* * *Final Report* * [...] cardiomediastinal silhouette. Bones and soft tissues: Unremarkable. JOHANA RADIOLOGYProvider, [facility] - 12/21/2023 * * *Final Report* * [...] MD on Dec 21 2023 10:03AM EST [facility] CenterXR Chest PA and LateralOrdered By: [facility] Provider on 12-21-2023 [facility] CentercCP IgG SerPl-aCncon 62-70-4121Iqxqko citrullinated peptide IgG Qn<15Normal<20[facility]crest HospitalComment on above:Order Comment: Specimen Type: BLOOD SPECIMEN Ordering Facility: [facility] Address: [address] [place], [place] [address]Performed By: #### 33467-3 #### [facility] CLIA [id number] [address] [place] [address] [address]2023 [facility] ID: [id number] Author: AMNA MASSEY RT(R) Service: ? Author Type: Technologist Type: [facility] Filed: 12/20/2023 17:10 Note Text: Radiology Service [...] PATIENT PRESENTS WITH AN IMPLANTABLE OR ATTACHED IRONER MACHINE: No ALLERGIES: Reviewed and unchanged CONTRAST ALLERGY: [...] Raymundo DATE: December 20, 2023 TIME: 5:06 [facility] [place] ID: [id number] Author: OBI HAAS Tech Service: Radiology Author Type: Abstractor Type: [employer] Filed: 12/20/2023 15:12 Note Text: Radiology Service [...] PATIENT PRESENTS WITH AN IMPLANTABLE OR ATTACHED IRONER MACHINE: No RADIOLOGY DEPARTMENT: General X-ray: Exam(s) Completed: Chest X-Ray PERIPHERAL IV DATA: Not applicable SIGNED BY: Levy Castanon December 20, 2023 3:12 PMNormalBrigham and Women's Hospital W Auto Differential panel (Bld) on 34-85-3516Wdtvdmqpm (Bld) [#/Vol]0.05 10*3/uLNormal<0.11[facility] Comment on above:Order Comment: Specimen Type: BLOOD SPECIMEN Ordering Facility: [facility] Address: [address] [place], [place] [address]Performed By: #### MPO #### [facility] CLIA [id number] [address] [place], [place] [address]Basophils/100 WBC (Bld)0.7 %[facility] Comment on above:Order Comment: Specimen Type: BLOOD SPECIMEN Ordering Facility: [facility] Address: [address] [place], [place] [address]Performed By: #### MPO #### [facility] CLIA [id number] [address] [place], [place] [address]Differential cell count method Nom (Bld)AutoNormLahey Medical Center, PeabodyComment on above:Order Comment: Specimen Type: BLOOD SPECIMEN Ordering Facility: [facility] Address: [address] [place], [place] [address]Performed By: #### MPO #### [facility] CLIA [id number] [address] [place] [address]Fgmrknsuozz (Bld) [#/Vol]0.20 10*3/uLNormal<0.46 [facility] HospitalComment on above:Order Comment: Specimen Type: BLOOD SPECIMEN Ordering Facility: [facility] Address: [address] [place], [place] [address]Performed By: #### MPO #### [facility] CLIA [id number] [address] [place] [address] 87826Aqarcqzguhp/100 WBC (Bld)2.9 %NormalMaeser HospitalComment on above:Order Comment: Specimen Type: BLOOD SPECIMEN Ordering Facility: [facility] Address: [facility] [place], [place] [address]Performed By: #### MPO #### [facility] CLIA [id number] [address] [place] [address] 58790Irsabarvjov distribution width (RBC) [Ratio]15.3 % High11.5-15.0[facility] HospitalComment on above:Order Comment: Specimen Type: BLOOD SPECIMEN Ordering Facility: [facility] Address: [address] [place], [place] [address]Performed By: #### MPO #### [facility] CLIA [id number] [address] [place] [address] 90368Cmonkvaydq (Bld) [Volume fraction]39.8 %Normal 39.0-51.0[facility] HospitalComment on above:Order Comment: Specimen Type: BLOOD SPECIMEN Ordering Facility: [facility] Address: [address] [place], [place] [address]Performed By: #### MPO #### [facility] CLIA [id number] [address] [place] [address] 46095Wzsoqkmiwi (Bld) [Mass/Vol]12.7 g/dLLow13.0-17.0 [facility] HospitalComment on above:Order Comment: Specimen Type: BLOOD SPECIMEN Ordering Facility: [facility] Address: [address] [place], [place] [address]Performed By: #### MPO #### [facility] CLIA [id number] [address] [place] [address]78[address]Karuaijs granulocytes (Bld) [#/Vol]0.05 10*3/uL Normal<0.10[facility] HospitalComment on above:Order Comment: Specimen Type: BLOOD SPECIMEN Ordering Facility: [facility] Address: [address] [place], [place] [address]Performed By: #### MPO #### [facility] CLIA [id number] [address] [place] [address] 26237Aczczpre granulocytes/100 WBC (Bld)0.7 %Normal [facility] HospitalComment on above:Order Comment: Specimen Type: BLOOD SPECIMEN Ordering Facility: [facility] Address: [address] [place], [place] [address]Performed By: #### MPO #### [facility] CLIA [id number] [address] [place] [address] 47122Dtmfsrrmlqy (Bld) [#/Vol]1.26 10*3/uLNormal1.00-4.00 [facility] HospitalComment on above:Order Comment: Specimen Type: BLOOD SPECIMEN Ordering Facility: [facility] Address: [address] [place], [place] [address]Performed By: #### MPO #### [facility] CLIA [id number] [address] [place] [address]Lukazwbiblk/100 WBC (Bld)18.0 %NormalMaeser HospitalComment on above:Order Comment: Specimen Type: BLOOD SPECIMEN Ordering Facility: [facility] Address: [address] [place], [place] [address]Performed By: #### MPO #### [facility] CLIA [id number] [address] [place] [address] 16[address]ASP (RBC) [Entitic mass]29.9 ysRjnqjf00.0-34.0 [facility] HospitalComment on above:Order Comment: Specimen Type: BLOOD SPECIMEN Ordering Facility: [facility] Address: [address] [place], [place] [address]Performed By: #### MPO #### [facility] CLIA [id number] [address] [address]UZHS (RBC) [Mass/Vol]31.9 g/qBSfcqep19.5-36.0 [facility] HospitalComment on above:Order Comment: Specimen Type: BLOOD SPECIMEN Ordering Facility: [facility] Address: [address] [place], [place] [address]Performed By: #### MPO #### [facility] CLIA [id number] [address] [place] [address] 12008AMU (RBC) [Entitic vol]93.6 kYDxxchp11.0-100.0 [facility] HospitalComment on above:Order Comment: Specimen Type: BLOOD SPECIMEN Ordering Facility: [facility] Address: [address] [place], [place] [address]Performed By: #### MPO #### [facility] CLIA [id number] [address] [place] [address] 19819Krpavrnvc (Bld) [#/Vol]0.66 10*3/uLNormal<0.87 [facility] HospitalComment on above:Order Comment: Specimen Type: BLOOD SPECIMEN Ordering Facility: [facility] Address: [address] [place], [place] [address]Performed By: #### MPO #### [facility] CLIA [id number] [address] [place] [address] 51599Lkeamwyyd/100 WBC (Bld)9.4 %[facility] Comment on above:Order Comment: Specimen Type: BLOOD SPECIMEN Ordering Facility: [facility] Address: [address] [place], [place] [address]Performed By: #### MPO #### [facility] CLIA [id number] [address] [place] [address] 11633Uwtpzkrfyze (Bld) [#/Vol]4.78 10*3/uLNormal1.45-7.50 [facility] HospitalComment on above:Order Comment: Specimen Type: BLOOD SPECIMEN Ordering Facility: [facility] Address: [address] [place], [place] [address]Performed By: #### MPO #### [facility] CLIA [id number] [address] [place] [address] 69826Lnaktflpvbk/100 WBC (Bld)68.3 %NormalMaeser HospitalComment on above:Order Comment: Specimen Type: BLOOD SPECIMEN Ordering Facility: [facility] Address: [address] [place], [place] [address]Performed By: #### MPO #### [facility] CLIA [id number] [address] [place] [address] 11215Hkjhirkwp RBC (Bld) [#/Vol]10*3/uLNormal<0.01 [facility] HospitalComment on above:Order Comment: Specimen Type: BLOOD SPECIMEN Ordering Facility: [facility] Address: [address] [place], [place] [address]Performed By: #### MPO #### [facility] CLIA [id number] [address] [place] [address] 69839Wvgiijgot RBC/100 WBC (Bld) [Ratio]0.0 /100 WBC NormalMaeser HospitalComment on above:Order Comment: Specimen Type: BLOOD SPECIMEN Ordering Facility: [facility] Address: [address] [place], [place] [address]Performed By: #### MPO #### [facility] CLIA [id number] [address] [place] [address] 15278Eufudhni mean volume (Bld) [Entitic vol]10.1 fL Normal9.0-12.7H[facility] HospitalComment on above:Order Comment: Specimen Type: BLOOD SPECIMEN Ordering Facility: [facility] Address: [address] [place], [place] [address]Performed By: #### MPO #### [facility] CLIA [id number] [address] [place] [address] 91024Rdnebhmhw (Bld) [#/Vol]229 10*3/gHYiyerx438-745 [facility] HospitalComment on above:Order Comment: Specimen Type: BLOOD SPECIMEN Ordering Facility: [facility] Address: [address] [place], [place] [address]Performed By: #### MPO #### [facility] CLIA [id number] [address] [address]MGI (Bld) [#/Vol]4.25 10*6/uLNormal4.20-6.00 [facility] on above:Order Comment: Specimen Type: BLOOD SPECIMEN Ordering Facility: [facility] Address: [address] [place] [address] 101[address]Puhuncpma By: #### MPO #### [facility] CLIA [id number] [address] [place] [address] 46990JGA (Bld) [#/Vol]7.00 10*3/uLNormal3.70-11.00 [facility] on above:Order Comment: Specimen Type: BLOOD SPECIMEN Ordering Facility: [facility] Address: [address] [place] [address] 704[address]Iddbwkxob By: #### MPO #### [facility] CLIA [id number] [address] [place] [address] 48090RYNPrf 10-95-5743AQZUYzrbht Visit (BERNARD) SAV RAYMUNDO ([id number]) 1950 M Date Time Provider Department 12/20/23 2:00 PM TITA LANDRY During your visit today, we recorded the following information about you: Temperature Respiration Weight Height 97.3 degrees 18/minute 104.8 kg 1.829 m Tita Landry APRN.CNP 01/19/2024 9:56 PM Signed [facility] DEPARTMENT OF THORACIC SURGERY OUTPATIENT VISIT DATE December 20, 2023 OUTPATIENT VISIT TYPE ESTABLISHED PT NAME: Sav Raymundo CLINIC NO: [id number] THORACIC SURGEON: Ronaldo Flood M.D. 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 Note (more content not included)...NormalBeth Israel Deaconess HospitalCT ABD/PEL W IVCONon 47-59-8049KV ABD/PEL W IVCON* * *Final Report* * * DATE OF EXAM: Dec 20 2023 5:12PM [facility] 0530 - CT ABD/PEL W IVCON [...] MD on Dec 20 2023 5:40PM EST [id number] C. [facility] [place] 12-[facility]-2023 Cholesterol [Mass/Vol]106 mg/dLNormal<200[facility] HospitalComment on above: Order Comment: Specimen Type: BLOOD SPECIMEN Ordering Facility: [facility] Address: [address] [place], [place] [address]Result Comment: <200 mg/dL, Desirable 200-239 mg/dL, Borderline high >239 mg/dL, High Reference: 1. National Cholesterol Education Program ATP III Guideline At-A-Glance Quick Desk Reference: National [facility], [facility]. National Institutes of Health. 2001: NIH Publication No. 01-3305.Performed By: #### 51926-5 #### [facility] CLIA [id number] [address] [place] [id number] [place] [address] [place] AMERICAComprehensive metabolic 2000 panelon 14-88-4475Kuqgqzb [Mass/Vol]4.0 g/dLNormal3.9-4.9HHouse of the Good Sam[facility]itan Comment on above:Order Comment: Specimen Type: BLOOD SPECIMEN Ordering Facility: [facility] Address: [address] [place], [place] [address]Performed By: #### #### [facility] CLIA [id number] [address] [place] [address] [place] AMERICAALP [Catalytic activity/Vol] 110 U/KKzjhlh06-030Cmgnkkgxi HospitalComment on above:Order Comment: Specimen Type: BLOOD SPECIMEN Ordering Facility: [facility] Address: [address] [place], [place] [address]Performed By: #### #### [facility] CLIA [id number] [address] [place] [address] [place] AMERICAALT [Catalytic activity/Vol] 13 U/JUmqnpe25-75Vynxgsayi HospitalComment on above:Order Comment: Specimen Type: BLOOD SPECIMEN Ordering Facility: [facility] Address: [address] [place], [place] [address]Performed By: #### #### [facility] CLIA [id number] [address] [place] [address] [place] AMERICAAnion gap [Moles/Vol]12 mmol/LNormal8-15[facility] HospitalComment on above:Order Comment: Specimen Type: BLOOD SPECIMEN Ordering Facility: [facility] Address: [address] [place], [place] [address]Performed By: #### 1987-10, #### [facility] CLIA [id number] [address] [place] [address] [place] AMERICAAST [Catalytic activity/Vol] 20 U/IVsyfuf19-32Zjefxzvhy HospitalComment on above:Order Comment: Specimen Type: BLOOD SPECIMEN Ordering Facility: [facility] Address: [address] [place], [place] [address]Performed By: #### 1987-10, #### [facility] CLIA [id number] [address] [place] [address] [place] AMERICABilirubin [Mass/Vol]0.6 mg/dL Normal0.2-1.3[facility] HospitalComment on above:Order Comment: Specimen Type: BLOOD SPECIMEN Ordering Facility: [facility] Address: [address] [place], [place] [address]Performed By: #### 1987-10, #### [facility] CLIA [id number] [address] [place] [address] [place] AMERICACalcium [Mass/Vol]9.1 mg/dL Normal8.5-10.2[facility] HospitalComment on above:Order Comment: Specimen Type: BLOOD SPECIMEN Ordering Facility: [facility] Address: [address] [place], [place] [address]Performed By: #### 1987-10, #### [facility] CLIA [id number] [address] [place] [address] [place] AMERICA[place]loride [Moles/Vol]105 mmol/TWjviyj20-372Lhbgznfcp HospitalComment on above:Order Comment: Specimen Type: BLOOD SPECIMEN Ordering Facility: [facility] Address: [address] [place], [place] [address]Performed By: #### 1987-10, #### [facility] CLIA [id number] [address] [place] [address] [place] OF AMERICACO2 [Moles/Vol]20 mmol/LLow 22-30Hillcre HospitalComment on above:Order Comment: Specimen Type: BLOOD SPECIMEN Ordering Facility: [facility] Address: [address] [place], [place] [address]Performed By: #### 1987-10, #### [facility] CLIA [id number] [address] [place] [address] [place] AMERICACreatinine [Mass/Vol]1.07 mg/dLNormal0.73-1.22[facility] HospitalComment on above:Order Comment: Specimen Type: BLOOD SPECIMEN Ordering Facility: [facility] Address: [address] [place], [place] [address]Performed By: #### 1987-10, #### [facility] CLIA [id number] [address] [place] [address] [place] AMERICACreatinine and Glomerular filtration rate.predicted panel (S/P/Bld)74 mL/min/1.73m???Normal>=60[facility] HospitalComment on above:Order Comment: Specimen Type: BLOOD SPECIMEN Ordering Facility: [facility] Address: [address] [place], [place] [address]Result Comment: Estimated Glomerular Filtration Rate (eGFR) is [...] By: #### 1987-10, #### [facility] CLIA [id number] [address] [place] [address] [place] AMERICAGlucose [Mass/Vol]111 mg/dL Rawr02-33Tzrkdgusv HospitalComment on above:Order Comment: Specimen Type: BLOOD SPECIMEN Ordering Facility: [facility] Address: [address] [id number] Comment: The English Diabetes Association (ADA) provides guidance for cutoff [...] Standards of Medical Care in Diabetes 2016, English Diabetes Association. Diabetes Care. 2016.39(Suppl 1).Performed By: #### #### [facility] CLIA [id number] [address] [place] [address] [place] AMERICAProtein [Mass/Vol]6.9 g/dL Normal6.3-8.0[facility]st HospitalComment on above:Order Comment: Specimen Type: BLOOD SPECIMEN Ordering Facility: [facility] Address: [address] [place], [place] [address]Performed By: #### #### [facility] CLIA [id number] [address] [place] [address] [place] AMERICASodium [Moles/Vol]137 mmol/L Kbmewp262-461Shpbtzviv HospitalComment on above:Order Comment: Specimen Type: BLOOD SPECIMEN Ordering Facility: [facility] Address: [address] [place], [place] [address]Performed By: #### #### [facility] CLIA [id number] [address] [place] [address] [place] AMERICAUrea nitrogen [Mass/Vol]15 mg/dLNormal9-24[facility]st HospitalComment on above:Order Comment: Specimen Type: BLOOD SPECIMEN Ordering Facility: [facility] Address: [address] [place], [place] [address]Performed By: #### #### [facility] [id number] [address] OF [facility]ST CAMPUSECG COMPLETEon 83-71-5652GUT COMPLETEVentricular Rate : 83 BPM Atrial Rate : 83 BPM P-R Interval : 184 ms QRS Duration : 80 ms Q-T Interval : 348 ms QTC Calculation(Bazett) : 408 ms Calculated P Chilo : 78 degrees Calculated R Chilo : 3 degrees Calculated T Chilo : 230 degrees POOR DATA QUALITY, INTERPRETATION MAY BE ADVERSELY AFFECTED NORMAL SINUS RHYTHM NONSPECIFIC T WAVE ABNORMALITY ABNORMAL ECG NO PREVIOUS ECGS AVAILABLE NO STEMI CONFIRMED 2057 Confirmed by MERLYN HALL MD ([id number]), video news editor ROLANDO SPAULDING ([id number]) on 12/21/2023 8:32:15 AM NAME : SAV RAYMUNDO PID : [id number] : 1950 Gender : Male Race : ORD : [id number] Procedure Date : Dec 20 2023 19:12:11 Edit Date : Dec 21 2023 08:32:16 Diagnosis: POOR DATA QUALITY, INTERPRETATION MAY BE ADVERSELY AFFECTED NORMAL SINUS RHYTHM NONSPECIFIC T WAVE ABNORMALITY ABNORMAL ECG NO PREVIOUS ECGS AVAILABLE NO STEMI CONFIRMED 2057 Confirmed by MERLYN HALL MD ([id number]), video news editor ROLANDO SPAULDING ([id number]) on 12/21/2023 8:32:15 AM Test Reason : Chest Pain Location : 26 : ER L ED Overread By : MERLYN HALL MD Edited By : ROLANDO SPAULDING Referred By : , Acquired by : ,NormalMaeser HospitalED NOTEon 04-09-3695DN NOTEHNO ID: [id number] Author: CHARLIE GRANGER RN Service: ? Author Type: Registered Nurse Type: ED Notes Filed: 12/20/2023 18:48 Note Text: Bed: ED-25 Expected date: Expected time: Means of arrival: Comments: triageNormalHillmarietta memorial hospitalst HospitalED NOTEHNO ID: [id number] Author: KEVIN HINSON RN Service: ? Author Type: Registered Nurse Type: ED Notes Filed: 12/20/2023 14:59 Note Text: Pt arrives to ED from appointment. Pt reported had l pleural effusion done today. Reportedly gets drained multiple times per week. Pt has had incread n/v/d x1 week. Abdominal area is distended according to TRAVELING STOREKEEPER. Pt is AANDOx3 and ambulatoryNormalHillcrest HospitalED PROV NOTEon 49-33-5240SR PROV NOTEHNO ID: [id number] Author: MERLYN HALL DO Service: Emergency Medicine [...] components: HELIO High Sen (more content not included)...NormalHibellevue hospital HospitalED Triage Noteon 06-57-2848IN Triage NoteHNO ID: [id number] Author: RAFAELA BATISTA MD Service: Emergency Medicine [...] (radiology procedure) ECG COMPLETE SIGNATURE: Rafaela Batista MDNormalMaeser HospitalGas + CO Pnl BldVon 28-13-5122Hdjcqbafm [Moles/Vol]4.6 mmol/LNormal3.7-5.1HHouse of the Good SamaritanComment on above:Order Comment: Specimen Type: BLOOD SPECIMEN Ordering Facility[facility] Address: [address] [place], [place] [address]Jydkixwdu By: #### MPO #### [facility] CLIA [id number] [address] [place] [address]Glbmbrrrn By: #### 1988-5, 86130-6 #### [facility] CLIA [id number] [address] [place] [address] [place] AMERICAGas and Carbon monoxide panel (BldV)on 40-70-1051HHEN DEFICIT, VENOUS-2 mmol/SGymmgs-2-6Wbuoqzeaf Hospital Comment on above:Order Comment: Specimen Type: BLOOD SPECIMEN Ordering Facility: [facility] Address: [address] [place], [place] [address]Performed By: #### MPO #### [facility] CLIA [id number] [address] [place] [address] 968[address]Vxrz qqysswuzhcz31.6 [degF][facility] Comment on above:Order Comment: Specimen Type: BLOOD SPECIMEN Ordering Facility: [facility] Address: [address] [place], [place] [address]Performed By: #### MPO #### [facility] CLIA [id number] [address] [place] [address]Dljkxmi.ionized (Bld) [Mass/Vol]1.22 mmol/LNormal 1.08-1.30Maeser HospitalComment on above:Order Comment: Specimen Type: BLOOD SPECIMEN Ordering Facility: [facility] Address: [address] [place], [place] [address]Performed By: #### MPO #### [facility] CLIA [id number] [address] [place], [place] [address]Carboxyhemoglobin (BldV) [Mass fraction]<1.0Normal 0.0-2.0[facility] HospitalComment on above:Order Comment: Specimen Type: BLOOD SPECIMEN Ordering Facility: [facility] Address: [address] [place], [place] [address]Result Comment: Carboxyhemoglobin Reference Range for Smokers: 2.0-8.0%Performed By: #### MPO #### [facility] CLIA [id number] [address] [place] [address]Ioktkhsj [Moles/Vol]111 mmol/RSpcw66-069Ldeyekrri HospitalComment on above:Order Comment: Specimen Type: BLOOD SPECIMEN Ordering Facility: [facility] Address: [address] [place], [place] [address]Axnjmdfwq By: #### MPO #### [facility] CLIA [id number] [address] [place] [address]HG3 (BldV) [Partial pressure]44 mm[Hg]Wipkzt55-75 [facility]er HospitalComment on above:Order Comment: Specimen Type: BLOOD SPECIMEN Ordering Facility: [facility] Address: [address] [place], [place] [address]Itieolmjp By: #### MPO #### [facility] CLIA [id number] [address] [place] [address]Amawudi [Mass/Vol]112 mg/pKAnow55-536Nqpnfwssn HospitalComment on above:Order Comment: Specimen Type: BLOOD SPECIMEN Ordering Facility: [facility] Address: [address] [place] [address]Thapvqzwt By: #### MPO #### [facility] CLIA [id number] [address] [place] [address]HJQ1 (Bld) [Moles/Vol]23 mmol/QCko03-15Gquvbtlff HospitalComment on above:Order Comment: Specimen Type: BLOOD SPECIMEN Ordering Facility: [facility] Address: [address] [place] [address]Ysyzorsuf By: #### MPO #### [facility] CLIA [id number] [address] [place] [address]Imckslweet (Bld) [Volume fraction]39.6 %Normal 39.0-51.0Maeser HospitalComment on above:Order Comment: Specimen Type: BLOOD SPECIMEN Ordering Facility: [facility] Address: [address] [place], [place] [address]Zwgwsguat By: #### MPO #### [facility] CLIA [id number] [address] [place] [address]Pmqhertiwb (Bld) [Mass/Vol]12.9 g/dLLow13.0-17.0 [facility] HospitalComment on above:Order Comment: Specimen Type: BLOOD SPECIMEN Ordering Facility: [facility] Address: [address] [place], [place] [address]Aiajkznhj By: #### MPO #### [facility] CLIA [id number] [address] [place] [address]Bwywzrr [Moles/Vol]0.9 mmol/LNormal0.5-2.2H[facility] HospitalComment on above:Order Comment: Specimen Type: BLOOD SPECIMEN Ordering Facility: [facility] Address: [address] [place], [place] [address]Performed By: #### MPO #### [facility] CLIA [id number] [address] [place] [address]15[address]Szgvnbbyavrwf (Bld) [Mass fraction]%Normal0.0-1.5 [facility] HospitalComment on above:Order Comment: Specimen Type: BLOOD SPECIMEN Ordering Facility: [facility] Address: [address] [place] [address]Ojxbflrnc By: #### MPO #### [facility] CLIA [id number] [address] [place] [address] [id number] THERAPYRA=Room AirNoBeth Israel [facility] HospitalComment on above:Order Comment: Specimen Type: BLOOD SPECIMEN Ordering Facility: [facility] Address: [address] [place] [address]Qjjnhmshn By: #### MPO #### [facility] CLIA [id number] [address] [place] [address] 566[address]Zcubod (BldV) [Partial pressure]mm[Hg]Mpd09-05 [facility]er HospitalComment on above:Order Comment: Specimen Type: BLOOD SPECIMEN Ordering Facility: [facility] Address: [address] [place] [address]Vkurcagsi By: #### MPO #### [facility] CLIA [id number] [address] [place] [address] 43124Dnzxpq saturation in Venous blood30 %Zmn84-50 [facility] HospitalComment on above:Order Comment: Specimen Type: BLOOD SPECIMEN Ordering Facility: [facility] Address: [address] [place] [address]Ibemhkvfa By: #### MPO #### [facility] CLIA [id number] [address] [place] [address] 07642Vlhwjzswewiiu (BldV) [Mass fraction]29 %Swf68-94 [facility] HospitalComment on above:Order Comment: Specimen Type: BLOOD SPECIMEN Ordering Facility: [facility] Address: [address] [place], [place] [address]Performed By: #### MPO #### [facility] CLIA [id number] [address] [place] [address] 37001xR (BldV)7.34 [pH]Normal7.32-7.42[facility] Comment on above:Order Comment: Specimen Type: BLOOD SPECIMEN Ordering Facility: [facility] Address: [address] [place], [place] [address]Performed By: #### MPO #### [facility] CLIA [id number] [address] [place] [address] 28860Seozfr [Moles/Vol]138 mmol/WRlljkt756-838Phgbbnvdx HospitalComment on above:Order Comment: Specimen Type: BLOOD SPECIMEN Ordering Facility: [facility] Address: [address] [place], [place] [address]Performed By: #### MPO #### [facility] CLIA [id number] [address] [place] [address] 89359RGBO SENSITIVITY TROPONIN T (INITIAL)on 12-20-2023 Troponin T.cardiac High sensitivity method [Mass/Vol]13 ng/LHigh<12[facility] HospitalComment on above:Order Comment: Specimen Type: BLOOD SPECIMEN Ordering Facility: [facility] Address: [address] [place], [place] [address]Performed By: #### 1988-5, 83663-4 #### [facility] CLIA [id number] [address] STATES OF [facility] WEST CAMPUSHIGH SENSITIVITY TROPONIN T (SECOND)on 24-74-5411Woxbyxoj T.cardiac High sensitivity method [Mass/Vol]12 ng/LHigh<12Ma[facility]er HospitalComment on above:Order Comment: Specimen Type: BLOOD SPECIMEN Ordering Facility: [facility] Address: [address] [place], [place] [address]Performed By: #### 1988-5, 28674-3 #### [facility] CLIA [id number] [address] STATES [facility] H[facility]PITALHIGH SENSITIVITY TROPONIN T (THIRD) 3 HRS AFTER INITIALon 57-55-5582Ktngiwmu T.cardiac High sensitivity method [Mass/Vol]11 ng/LNormal<12[facility] HospitalComment on above:Order Comment: Specimen Type: BLOOD SPECIMEN Ordering Facility: [facility] Address: [address] [place], [place] [address]Performed By: #### 67586-3 #### [facility] CLIA [id number] [address] [place], [place] [address]K [address] STREETHISTORY PHYSICALon 19-08-1692EWZUZHH PHYSICALHNO ID: [id number] Author: ALPA OLIVA APRN.CNP Service: General Internal [...] malaise, (more content not included)...NormalHillcrest HospitalLipase SerPl-cCncon 15-46-0800Wqaaas [Catalytic activity/Vol]40 U/L Grehge20-74Bfdtcimem HospitalComment on above:Order Comment: Specimen Type: BLOOD SPECIMEN Ordering Facility: [facility] Address: [address] [place], [place] [address]Performed By: #### 1988-5, 05212-2 #### [facility] CLIA [id number] [address] [place] [address] STATES OF AMERICAMagnesium SerPl-mCncon 84-54-5283Sjashbwod [Mass/Vol]2.1 mg/dLNormal1.7-2.3[facility] HospitalComment on above:Order Comment: Specimen Type: BLOOD SPECIMEN Ordering Facility: [facility] Address: [address] [place], [place] [address]Performed By: #### 1987-, 42186-8 #### [facility] CLIA [id number] [address] [place] [address] [place] AMERICANT-proBNP SerPl-mCncon 66-48-7915Oomyewgcfcf peptide.B prohormone N-Terminal [Mass/Vol]464 pg/mLHigh <125[facility] HospitalComment on above:Order Comment: Specimen Type: BLOOD SPECIMEN Ordering Facility: [facility] Address: [address] [place], [place] [address]Performed By: #### 1987-10, #### [facility] [place] [id number] [address] [place] [address] [place] AMERICATrigl SerPl-mCncon 12-20-2023 Triglyceride [Mass/Vol]86 mg/dLNormal<150[facility] HospitalComment on above: Order Comment: Specimen Type: BLOOD SPECIMEN Ordering Facility: [facility] Address: [address] [place], [place] [address]Result Comment: <150 mg/dL, Normal 150-199 mg/dL, Borderline high 200-499 mg/dL, High >499 mg/dL, Very high Reference: 1. National Cholesterol Education Program ATP III Guideline At-A-Glance Quick Desk Reference: National Heart, Lung, and Blood Pound. National Institutes of Health. 2001: NIH Publication No. 01-3305.Performed By: #### 57918-5 #### [facility] CLIA [id number] [address] [place] [address] [place] AMERICATriglyceride [Mass/Vol]on 73-46-4474MLDMQHO TIMEUnknown\X09\NormalHillcrest HospitalComment on above:Order Comment: Specimen Type: BLOOD SPECIMEN Ordering Facility: [facility] Address: [address] [place], [place] [address]Performed By: #### 03639-0 #### [facility] CLIA [id number] [address] [place] [address] [id number] [place] [address] [place] AMERICAUrinalysis complete panel (U)on 48-97-4792Nsesxeqtl Ql (U)NegativeNormalNegativeHillcrest HospitalComment on above:Order Comment: Specimen Type: URINE SPECIMEN Ordering Facility: [facility] Address: [address] [place], [place] [address]Performed By: #### 16946-2 #### [facility] CLIA [id number] [address] [place] [address] [place] AMERICAClarity (Unsp spec)Clear NormalClearHillcrest HospitalComment on above:Order Comment: Specimen Type: URINE SPECIMEN Ordering Facility: [facility] Address: [address] [place], [place] [address]Performed By: #### 06760-6 #### [facility] CLIA [id number] [address] [place] [address] [place] AMERICAColor (U)YellowNormalYellow [facility]er HospitalComment on above:Order Comment: Specimen Type: URINE SPECIMEN Ordering Facility: [facility] Address: [address] [place], [place] [address]Performed By: #### 63743-0 #### [facility] CLIA [id number] [address] [place] [address] [place] AMERICAEpithelial cells LM.HPF (Urine sed) [#/Area]ModerateNormalHillcrest HospitalComment on above:Order Comment: Specimen Type: URINE SPECIMEN Ordering Facility: [facility] Address: [address] [place], [place] [address]Performed By: #### 69654-0 #### [facility] CLIA [id number] [address] [place] [address] [place] AMERICAGlucose Test strip (U) [Mass/Vol]NegativeNormalTrace, NegativeHillcrest HospitalComment on above:Order Comment: Specimen Type: URINE SPECIMEN Ordering Facility: [facility] Address: [address] [place], [place] [address]Performed By: #### 04156-2 #### [facility] CLIA [id number] [address] [place] [address] [place] AMERICAHemoglobin Ql (U)Negative NormalNegative, TraceHillcrest HospitalComment on above:Order Comment: Specimen Type: URINE SPECIMEN Ordering Facility: [facility] Address: [address] [place], [place] [address]Performed By: #### 40080-8 #### [facility] CLIA [id number] [address] [place] [address] [place] AMERICAKetones Ql (U)NegativeNormal Negative, TraceHillcrest HospitalComment on above:Order Comment: Specimen Type: URINE SPECIMEN Ordering Facility: [facility] Address: [address] [place], [place] [address]Performed By: #### 22230-9 #### [facility] CLIA [id number] [address] [place] [address] [place] AMERICALeukocyte esterase Test strip Ql (U)NegativeNormalNegative, 25 Francisco/uLHillcrest HospitalComment on above:Order Comment: Specimen Type: URINE SPECIMEN Ordering Facility[facility] Address: [address] [place], [place] [address]Performed By: #### 70682-1 #### [facility] CLIA [id number] [address] [place] [address] [place] AMERICANitrite Ql (U)NegativeNormal NegativeHillcrest HospitalComment on above:Order Comment: Specimen Type: URINE SPECIMEN Ordering Facility: [facility] Address: [address] [place], [place] [address]Performed By: #### 20081-0 #### [facility] CLIA [id number] [address] [place] [address] [place] AMERICApH (U)6.0 [pH]Normal5.0-8.0 [facility]er HospitalComment on above:Order Comment: Specimen Type: URINE SPECIMEN Ordering Facility[facility] Address: [address] [place], [place] [address]Performed By: #### 91579-3 #### [facility] CLIA [id number] [address] [place] [address] [place] AMERICAProtein (U) [Mass/Vol]Trace NormalTrace, NegativeHillcrest HospitalComment on above:Order Comment: Specimen Type: URINE SPECIMEN Ordering Facility[facility] Address: [address] [place], [place] [address]Performed By: #### 20623-5 #### [facility] CLIA [id number] [address] [place] [address] [place] [facility] WEST CAMPUSRBC LM.HPF (Urine sed) [#/Area]0-3 /HPFNormal0-3 /HPFHillcrest HospitalComment on above:Order Comment: Specimen Type: URINE SPECIMEN Ordering Facility[facility] Address: [address] [place], [place] [address]Performed By: #### 01413-7 #### [facility] CLIA [id number] [address] [place] [address] [place] AMERICASpecific gravity (U) [Rel density]1.482Ytspas1.005-1.030[facility]st HospitalComment on above:Order Comment: Specimen Type: URINE SPECIMEN Ordering [facility] Address: [address] [place], [place] [address]Performed By: #### 92557-9 #### [facility] CLIA [id number] [address] [place] [address] [place] AMERICAUrobilinogen Ql (U)Normal NormalNormalHillcrest HospitalComment on above:Order Comment: Specimen Type: URINE SPECIMEN Ordering [facility] Address: [address] [place], [place] [address]Performed By: #### 24257-0 #### [facility] CLIA [id number] [address] [place] [address] [place] AMERICAWBC LM.HPF (Urine sed) [#/Area]0-5 /HPFNormal0-5 /HPFBeth Israel Deaconess HospitalComment on above:Order Comment: Specimen Type: URINE SPECIMEN [facility] Address: [address] [place], [place] [address]Performed By: #### 57642-6 #### [facility] CLIA [id number] [address] [place], [place] [address]XR CHEST 1V FRONTAL PORTon 24-65-0571SK CHEST 1V FRONTAL PORT* * *Final Report* [...] MD on Dec 20 2023 4:14PM EST [id number] Israel Deaconess HospitalXR CHEST 2V FRONTAL/LATon 38-43-3900ZX CHEST 2V FRONTAL/LAT* * *Final Report* * [...] MD on Dec 21 2023 10:03AM EST [id number] Health CenterXR Chest PA and Lateralon 52-30-6262Oyczidiqq Study observation (narrative)[facility]XR Chest PA and Lateralon 22-60-0292ZQEFRKTHYJ: Slight increase of the small right pleural effusion. A follow-up exam is recommended. Transcribed Using Voice Recognition Transcribe Date/Time: Dec 14 2023 1:14P Dictated by: JEFFREY KRUEGER MD This examination was interpreted and the report reviewed and electronically signed by: JEFFREY KRUEGER MD on Dec 14 2023 1:15PM [facility]* * *Final Report* * [...] cardiomediastinal silhouette. Bones and soft tissues: Unremarkable. [facility] RADIOLOGYProvider, [facility] - 12/14/2023 * * *Final Report* * [...] MD on Dec 14 2023 1:15PM EST [facility] CenterXR Chest PA and LateralOrdered By: Ccf Provider on 12-14-2023 [facility] Medical CenterCNOVon 94-33-2319HCWWIpberm Visit (BERNARD) SAV RAYMUNDO ([id number]) 1950 Date Time Provider Department 12/13/23 2:00 PM TITA LANDRY During your visit today, we recorded the following information about you: Temperature Pulse Respiration Blood pressure 97.3 degrees 68/minute 16/minute 129/80 Weight Height 104 kg 1.829 m Tita Landry APRN.CNP 01/16/2024 10:44 PM Signed [facility] DEPARTMENT OF THORACIC SURGERY OUTPATIENT VISIT DATE December 13, 2023 OUTPATIENT VISIT TYPE ESTABLISHED PT NAME: Sav Raymundo [facility] NO: [id number] THORACIC SURGEON: Ronaldo Flood M.D. 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 NormalHillcreSaint Francis Medical CenterXR CHEST 2V FRONTAL/LATon 55-75-0638YP CHEST 2V FRONTAL/LAT* * *Final Report* * [...] MD on Dec 14 2023 1:15PM EST [id number] Health CenterXR Chest PA and Lateralon 68-82-7800Kympcloml Study observation (narrative)[facility] CenterCNOVon 26-26-6131ULUGPmmmnc Visit (BERNARD) SAV RAYMUNDO ([id number]) 1950 M Date Time Provider Department 12/03/23 1:00 PM TITA LANDRY During your visit today, we recorded the following information about you: Temperature Pulse Respiration Blood pressure 97.8 degrees 74/minute 14/minute 120/78 Weight Height 102.4 kg 1.829 m Tita Landry APRN.CNP 12/30/2023 10:10 PM Signed [facility] DEPARTMENT OF THORACIC SURGERY OUTPATIENT VISIT DATE December 03, 2023 OUTPATIENT VISIT TYPE ESTABLISHED PT NAME: Sav Raymundo CLINIC NO: [id number] THORACIC SURGEON: Ronaldo Flood M.D. 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 Drs. 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, right Pleurx catheter [...] content not included)...NormalHillcrest HospitalXR CHEST 2V FRONTAL/LATon 45-25-9872DJ CHEST 2V FRONTAL/LAT* * *Final Report* * [...] MD on Dec 05 2023 12:53PM EST [id number]_[id number] Hospital [id number] Visit (BERNARD) SAV RAYMUNDO ([id number]) 1950 M Date Time Provider Department 11/29/23 3:00 PM TITA LANDRY During your visit today, we recorded the following information about you: Temperature Pulse Respiration Blood pressure 97.3 degrees 71/minute 14/minute 121/68 Weight Height 105.6 kg 1.829 m Tita Landry APRN.CNP 12/30/2023 9:20 PM Signed [facility] DEPARTMENT OF THORACIC SURGERY OUTPATIENT VISIT DATE November 29, 2023 OUTPATIENT VISIT TYPE ESTABLISHED PT NAME: Sav Raymundo CLINIC NO: [id number] THORACIC SURGEON: Ronaldo Flood M.D. 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, right Pleurx catheter [...] call with surgical patholog (more content not included)...[facility]ONTAL/LATon 34-16-3081SF CHEST 2V FRONTAL/LAT* * *Final Report* * [...] MD on Nov 30 2023 4:59PM EST [id number] River Emergency Hospital [id number] (BERNARD) SAV RAYMUNDO ([id number]) 1950 M Date Time Provider Department 11/24/23 RONALDO FLOOD During your visit today, we recorded the following information about you: Allergies As of Date: 11/24/2023 Noted Allergy Reaction TRAMADOL 12/15/2020 1 - Mental Status Change Date Reviewed: 11/23/2023 Reviewed by: Lilia Slater RN - Fully Assessed Primary Visit Diagnosis:Surgery follow-up [Z09] Order(s):XR CHEST 2V FRONTAL/LAT [[id number]] Order #: [id number] FUTURE Prescriptions as of 11/24/2023 - acetaminophen [...] 11/21/2023 Encounter Status:Closed by JACEK RODAS on 11/24/23[facility] W stress and W radionuclide Scarlett 11-12-2023* * *Final Report* * * DATE OF EXAM: Nov 12 2023 11:59AM [facility] 0006 - [place] CARDIAC PERF STRESS/PHARM / PROCEDURE REASON: multiple diagnoses * * * * Physician Interpretation * * * * Stress Automobile Repossessor Report: [facility] DASH-2 Date of service: 11/12/2023 10:35:44 AM [...] later. See administered radiotracer and doses below. [facility] Date of service: 11/12/2023 10:35:44 AM Ordering [...] * * * Final * * * VT CTA Report: [facility] Date of service: 11/12/2023 10:35:44 AM CTAC interpreting physician: Jose Dawson MD PATIENT: Name: SAV RAYMUNDO Age: 73 years Gender: M 1. Incidental Findings from limited non-diagnostic CTAC: - Coronary calcifications visualized. large right pleural effusion better evaluated on dedicated chest imaging * * * Final * * * Stress ECG Report: [place] [address] Date of service: 11/12/2023 10:35:44 AM Ordering physician: RONALDO FLOOD activity therapy specialist: Joan Almendarez Plant Electrician: Solange Mosley Interpreting physician: Jose Dawson MD Patient name: SAV RAYMUNDO Age: 73 years Gender: M Height: 182.88 cm BSA: 2.27 m Weight: 101.15 kg BMI: 30.2 kg/m Indication: Encounter for pre-procedural cardiovascular examination for non-cardiac surgery Stress ECG Conclusion: Conclusion: Normal Comments: Non-specific T wave abnormality at rest and (more content not included)...DIVISION OF RADIOLOGYProvider, [facility] * * *Final Report* * * DATE OF EXAM: Nov 12 2023 11:59AM N 0006 - NM CARDIAC PERF STRESS/PHARM / PROCEDURE REASON: multiple diagnoses * * * * Physician Interpretation * * * * Stress Automobile Repossessor Report: [place] [address] Date of service: 11/12/2023 10:35:44 AM Supervising [...] See administered radiotracer and doses below. [place] Date of service: 11/12/2023 10:35:44 AM Ordering [...] Final * * * NM CTAC Report: [facility] Date of service: 11/12/2023 10:35:44 AM CTAC interpreting physician: Jose Dawson MD PATIENT: Name: ASV RAYMUNDO Age: 73 years Gender: M 1. Incidental Findings from limited non-diagnostic CTAC: - Coronary calcifications visualized. large right pleural effusion better evaluated on dedicated chest imaging * * * Final * * * Stress ECG Report: [facility] DASH-2 Date of service: 11/12/2023 10:35:44 AM Ordering physician: RONALDO FLOOD activity therapy specialist: Joan Almendarez Plant Electrician: Solange Mosley Interpreting physician: Jose Dawson MD [...] age. Peak bloo (more content not included)... [facility] W stress and W radionuclide IVOrdered By: Ccf Provider on 73-85-8406Zjhfvmswz ClinicNo Panel Informationon 11-12-2023 Radiology Study observation (narrative)EspinosaCentervilleUS Chest limitedon 86-91-0044Haaojgzuy ClinicXR Chest PA and Lateralon 97-33-2613OASPYLSVXB: See result. Manager Clinical Services: ALONSO Transcribe Date/Time: Nov 12 2023 8:27A Dictated by : BLAS NELSON MD This examination was interpreted and the report reviewed and electronically signed by: BLAS NELSON MD on Nov 12 2023 8:29AM [facility] DIVISION OF RADIOLOGY* * *Final [...] within the thoracic spine. DIVISION OF RADIOLOGYProvider, [facility] * * *Final Report* * [...] the thoracic spine. IMPRESSION IMPRESSION: See result. Manager Clinical Services: ALONSO Transcribe Date/Time: Nov 12 2023 8:27A Dictated by : BLAS NELSON MD This examination was interpreted and the report reviewed and electronically signed by: BLAS NELSON MD on Nov 12 2023 8:29AM EST [facility] CenterXR Chest PA and LateralOrdered By: Ccf Provider on 11-12-2023 [facility] Medical CenterDetermination of appearance of body fluidon 14-71-8895Yekzbifcra (Body fld)HazyClearFOhioHealth Nelsonville Health CenterEvaluation of color of body fluidon 89-99-0347Fehkd (Body fld)Yellow.[facility] Comment on above:Colorless to Pale Yellow/StrawLon 49-75-6139ATmwvucfh: [id number] Received: 10/02/23 Status: MARITA Nolasco Num: [id number] Spec Type: Cytology Subm Dr: Sintia Clemente DO Tissues: A PLEURAL FLUID (RIGHT PLEURAL FLUID) Procedures: HE/2, Gross/Micro L4, Cyto Prepstain, PAPSTN Age/ Patient Sex Location Account Attending Physician KimberlyAdams Pepe 73/M LABELL [id number] Sintia Clemente DO SPEC NUM: [id number] RECD: 10/02/23 STATUS: MARITA NOLASCO NUM: [id number] HALLIE: 10/01/[address]: Sintia Clemente DO ENTERED: 10/02/[address] [facility] [address]: SPEC TYPE: Cytology DEPT: FAIZA RICHARD ENTERED BY: [id number] RECV BY: [id number] ORDERED: HE/2, Gross/Micro L4, Cyto Prepstain, PAPSTN [...] 1 cell blocks are prepared. (ME/nh) Specimen: [id number] Received: 10/02/23 Status: MARITA Nolasco Num: [id number] Spec Type: Cytology Subm Dr: Sintia Clemente DO Tissues: A PLEURAL FLUID (RIGHT PLEURAL FLUID) Procedures: HE/2, Gross/Micro L4, Cyto Prepstain, PAPSTN Patient: Sav Raymundo [id number] (Continued) Signed (signature on file) Jaspal Olmedo MD 10/03/[address] [place] [address] Physician GroupLaboratory - Microbiology and Antimicrobial susceptibilityOrdered By: Yuli Mariscal on 72-19-4251Uglaaiymhzg observation Gram stain Nom (Unsp spec)[facility] HospitalManual body fluid eosinophils/100 leukocyteson 74-66-7799Rgjbvzekhff/100 WBC Manual cnt (Body fld)0 %Not Estab.[facility] HospitalComment on above: Performed at: - [facility] [id number] Director: Norm Alcaraz PhD, Phone: [phone] body fluid lymphocytes/100 leukocyteson 28-47-1282Amfykxgvmrw/100 WBC Manual cnt (Body fld) 39 %Not Estab.[facility] HospitalNeutrophils/100 WBC Manual cnt (Body fld)on 27-49-7983Dcygvrwbmdn/100 WBC (Body fld)5 %0-24[facility] HospitalNo Panel InformationOrdered By: Yuli Mariscal on 55-69-0911Lbik Fast SmearMemorial Health System Marietta Memorial HospitalAFB Specimen ProcessingMemorial Health System Marietta Memorial HospitalNo Panel Informationon 81-76-0620Prro Fluid CommentTNP. [facility] HospitalBody Fluid Zphtlzm202 mg/dL.[facility] HospitalComment on above: : BODY FLUID TYPE [...] 2008. Ninth edition (V9.1) [employer], [facility]; Sac: December 2008.Body Fluid Lining CellTNP.[facility] HospitalBody Fluid Macrophages (%)56 %Not Estab.[facility] HospitalBody Fluid pHTNP.[facility] HospitalComment on above:Test not performed. Test is not approved for the collectionsite indicated.This test was developed and its performance characteristicsdetermined by [facility]. It has not been cleared orapproved by the Food and Drug Administration.The reference interval(s) and other method performance specificationshave not been established for this body fluid. The test result must beintegrated into the clinical context for interpretation.Performed at: [facility] - [facility] [address] [place], [place] [id number] Director: Yan Escamilla MD, Phone: [phone] Fluid PZI6672 /uLNot Estab.[facility] HospitalBody Fluid Total Nucleated Rwzdv9022 /ni77-673XlpwvyzyeMemorial Health System Marietta Memorial HospitalComment on above:Pleural Fluid, with <1000 Nucleated cells/uL has beenassociated with transudates while >1000 uL may be seenin exudates.Body Fluid Total Protein3.7 g/dL.[facility] Comment on above: : BODY [...] Children 2007. Ninth Edition (V9.1) [employer] [facility] Ltd[facility]; Sac: December 2008.Performed at: [facility] [place], [place] [id number] Director: Norm Alcaraz PhD, Phone: [phone] Smear ResultMemorial Health System Marietta Memorial HospitalMiscellaneous Test CommentSee commentMemorial Health System Marietta Memorial HospitalComment on above:Specimen Source: PL - Pleural Fluid - Pleural Fl - 401.000Estimated glomerular filtration rate (GFR) non- Americanon 44-06-5720GVO/1.73 sq M.predicted among non- blacks MDRD (S/P/Bld) [Vol rate/Area]mL/min/{1.73_m2}>=60[facility] HospitalLaboratory - Chemistry and Chemistry - challengeon 09-11-2023 Creatinine [Mass/Vol]1.02 mg/dL0.70-1.30[facility] GFR/1.73 sq M.predicted MDRD (S/P/Bld) [Vol rate/Area]mL/min/{1.73_m2}>=60 [facility] HospitalBody fluid differential cell countOrdered By: Sintia Clemente on 58-08-6338Kxhxzpyigkfv panel (Body fld)50 %[facility] HospitalComment on above:The reference interval and other method performance specifications have not been established for this body fluid. The test result must be integrated into the clinical context for interpretation.Cell Count/Diff, Fluidon 92-76-1255Ssmsebyimu FluidHazyNormalThe [facility] Regional Physician GroupComment on above:Order Comment: Body Fluid Source: Pleural Fluid Body Fluid Site: PLEURAL FLUIDResult Comment: The reference interval and other method performance specifications have not been established for this body fluid. The test result must be integrated into the clinical context for interpretation.Performed By: #### FLCCDIFF #### [place] [address] [facility]RI[facility] Comment on above:Order Comment: Body Fluid Source: Pleural Fluid Body Fluid Site: PLEURAL FLUIDResult Comment: The reference interval and other method performance specifications have not been established for this body fluid. The test result must be integrated into the clinical context for interpretation.Performed By: #### FLCCDIFF #### [facility] [address] [place] [id number] USACobonner general hospital, [facility] Physician GroupComment on above:Order Comment: Body Fluid Source: Pleural Fluid Body Fluid Site: PLEURAL FLUIDResult Comment: The reference interval and other method performance specifications have not been established for this body fluid. The test result must be integrated into the clinical context for interpretation.Performed By: #### FLCCDIFF #### [address] [address] USAEosinophils, Fluid0 /100{WBC}Normal0-3The [facility] Regional Physician GroupComment on above:Order Comment: Body Fluid Source: Pleural Fluid Body Fluid Site: PLEURAL FLUIDResult Comment: PERFORMED BY: [place] [address] PATHOLOGIST TRACER POWDER BLENDER KATHY HENDRICKSON M.D.Performed By: #### FLCCDIFF #### [place] [id number] USALymphocytes, Fluid38 %NormalThe [facility] Comment on above:Order Comment: Body Fluid Source: Pleural Fluid Body Fluid Site: PLEURAL FLUIDResult Comment: The reference interval and other method performance specifications have not been established for this body fluid. The test result must be integrated into the clinical context for interpretation.Performed By: #### FLCCDIFF #### [place] [id number] USAMonocytes/Macrophages, Fluid50 %NormalThe [facility] Regional Physician GroupComment on above:Order Comment: Body Fluid Source: Pleural Fluid Body Fluid Site: PLEURAL FLUIDResult Comment: The reference interval and other method performance specifications have not been established for this body fluid. The test result must be integrated into the clinical context for interpretation.Performed By: #### FLCCDIFF #### [address] [address] USANeutrophil, Fluid12 %NormalThe [facility] Comment on above:Order Comment: Body Fluid Source: Pleural Fluid Body Fluid Site: PLEURAL FLUIDResult Comment: The reference interval and other method performance specifications have not been established for this body fluid. The test result must be integrated into the clinical context for interpretation.Performed By: #### FLCCDIFF #### [address] [address] USARBC, [id number] /[facility] Comment on above:Order Comment: Body Fluid Source: Pleural Fluid Body Fluid Site: PLEURAL FLUIDResult Comment: The reference interval and other method performance specifications have not been established for this body fluid. The test result must be integrated into the clinical context for interpretation.Performed By: #### FLCCDIFF #### [facility] [address] [id number] USATSD, Body Zpbie909 /[facility] Comment on above:Order Comment: Body Fluid Source: Pleural Fluid Body Fluid Site: PLEURAL FLUIDResult Comment: The reference interval and other method performance specifications have not been established for this body fluid. The test result must be integrated into the clinical context for interpretation.Performed By: #### FLCCDIFF #### [facility] [address] [id number] USAColor of Spun Body fluidOrdered By: Sintia Clemente on 12-53-6885Mhdic (Spun body fld)[facility] Flower MoundComment on above:The reference interval and other method performance specifications have not been established for this body fluid. The test result must be integrated into the clinical context for interpretation.Determination of appearance of body fluidOrdered By: Sintia Clemente on 74-56-5820Pdoqizudcf (Body fld)[facility] Medical CenterComment on above:The reference interval and other method performance specifications have not been established for this body fluid. The test result must be integrated into the clinical context for interpretation. Evaluation of color of body fluidOrdered By: Sintia Clemente on 13-92-6251Gfpbs (Body fld)[facility] Flower MoundComment on above:The reference interval and other method performance specifications have not been established for this body fluid. The test result must be integrated into the clinical context for interpretation.Xander 32-29-8798LHkxbffdp: [id number] Received: 09/06/23 Status: [facility] Req Num: [id number] Spec Type: Cytology Subm Dr: Sintia Clemente, DO Tissues: A PLEURAL FLUID (PLEUR) Procedures: HE/2, Gross/Micro L4, AE1-AE3, CALRETININ, CK20, CK 7, TTF1, Cyto Prepstain, NKX3.1, MOC31, SOX-10, PAPSTN Age/ Patient Sex Location Account Attending Physician Sav Raymundo 73/M LABELL [id number] Sintia Clemente DO SPEC NUM: [id number] RECD: 09/06/23 STATUS: MARITA NOLASCO NUM: [id number] HALLIE: 09/04/23-[address] [facility] [address]: Sintia Clemente DO ENTERED: 09/06/23-[address] [facility] [address]: SPEC TYPE: Cytology DEPT: CNG ENTERED BY: [id number] RECV BY: [id number] ORDERED: HE/2, Gross/Micro L4, AE1-AE3, CALRETININ, CK20, [...] blocks are prepared. (ME/nh) Specimen: [id number] Received: 09/06/23-1403 Status: MARITA Nolasco Num: [id number] Spec Type: Cytology Subm Dr: Sintia Clemente DO Tissues: A PLEURAL FLUID (PLEUR) Procedures: HE/2, Gross/Micro L4, AE1-AE3, CALRETININ, CK20, CK 7, TTF1, Cyto Prepstain, NKX3.1, MOC31, SOX-10, PAPSTN Patient: Sav Raymundo [id number] (Continued) Signed (signature on file) Jaspal Olmedo MD 09/12/[address] [place] [address] Physician GroupLaboratory - Chemistry and Chemistry - challengeon 88-01-8798Ooooxyxqrkf [Mass/Vol]59 mg/dL<=200[facility] HospitalLabbrooksidetory - Microbiology and Antimicrobial susceptibilityOrdered By: Yuli Mariscal on 72-29-4663Ctxjdrgcswp observation Gram stain Nom (Unsp spec)[facility] body fluid eosinophils/100 leukocytesOrdered By: Sintia Clemente on 29-21-5912Lgepukkqnqj/100 WBC Manual cnt (Body fld)0 /100{WBC}0-3Fire[facility] Regional Medical CenterManual body fluid erythrocytes count (number/volume)Ordered By: Sintia Clemente on 48-03-9131SMT Manual cnt (Body fld) [#/Vol]22196 /[facility] HospitalComment on above:The reference interval and other method performance specifications have not been established for this body fluid. The test result must be integrated into the clinical context for interpretation.Manual body fluid lymphocytes/100 leukocytesOrdered By: Sintia Clemente on 09-04-2023 Lymphocytes/100 WBC Manual cnt (Body fld)38 %[facility] Comment on above:The reference interval and other method performance specifications have not been established for this body fluid. The test result must be integrated into the clinical context for interpretation.Neutrophils/100 WBC Manual cnt (Body fld)Ordered By: Sintia Clemente on 58-67-4811Dgnlyzmxkoi/100 WBC (Body fld)12 %[facility] HospitalComment on above:The reference interval and other method performance specifications have not been established for this body fluid. The test result must be integrated into the clinical context for interpretation.No Panel InformationOrdered By: Yuli Mariscal on 54-39-9512Mcqt Fast SmearMemorial Health System Marietta Memorial HospitalAFB Specimen ProcessingMemorial Health System Marietta Memorial HospitalNo Panel Informationon 74-59-9303Ylwe Fluid Nwkhpjm29 U/L.[facility] HospitalComment on above: : BODY FLUID TYPE : AMYLASE : : : : : Lymph : 50 - 83 : : : : : Peritoneal : : : Fluid : 88 - 109 : : : : : Saliva : : : (Mixed Glands) : 23926- [id number] : : : : Adeel Das V. Reference Intervals for Adults and Children 2007. Ninth Edition (V9.1) [employer] [facility]; Sac: December 2008.Performed at: [place] [id number] [place], [place] [id number] Director: Norm Alcaraz PhD, Phone: [phone] Fluid Wihixrs482 mg/dL.[facility] Comment on above: : BODY [...] 2007. Ninth edition (V9.1) [employer], [facility]; Sac: December 2008.Body Fluid pH8.2Not Estab.[facility] HospitalComment on above:This test was developed and its performance characteristicsdetermined by [facility]. It has not been cleared orapproved by the Food and Drug Administration.The reference interval(s) and other method performance specificationshave not been established for this body fluid. The test result must beintegrated into the clinical context for interpretation.Performed at: [address] [id number] Director: Yan Escamilla MD, Phone: [phone] Fluid Total Protein3.7 g/dL.[facility] HospitalComment on above: : BODY FLUID TYPE [...] 2008. Ninth Edition (V9.1) [employer], [facility]; Sac: December 2008.Body Fluid Ljblkjupspysp19 mg/dLNot Estab. [facility] HospitalComment on above:The reference interval(s) and other method performance specificationshave not been established for this body fluid. The test result must beintegrated into the clinical context for interpretation.Performed at: - [address] [id number] Director: Norm Alcaraz PhD, Phone: [phone] Smear ResultMemorial Health System Marietta Memorial HospitalMiscellaneous Test CommentSee comment [facility] HospitalComment on above:Specimen Source: PL - Pleural Fluid - Pleural Fl - 401.000No Panel InformationOrdered By: Sintia Clemente on 36-81-4764Ggjg Fluid Total Nucleated Fcisr440 /[facility] HospitalComment on above:The reference interval and other method performance specifications have not been established for this body fluid. The test result must be integrated into the clinical context for interpretation.Serum or plasma free cefuroxime measurement (mass/volume)on 87-20-5661Ydcmyyenlu free [Mass/Vol] TNP.[facility] HospitalComment on above:Test not performed. No serum gel received.Contacted Shelby at your facility 09/06/2023Test not performed. No serum gel received.Contacted Shreya at your facility 09/06/2023--- 09/06/23 1311 ---GREY Direct previously reported as: Test not performedTest not performed. No serum gel received.Contacted Shelby at your facility 09/06/2023Serum or plasma rheumatoid factor measurement (units/volume)on 89-38-3242Odssolvptf factor Qn TNP [IU]/mL.[facility] HospitalComment on above:Test not performed. No serum gel received.Contacted Shelby at your facility 09/06/2023Test not performed. No serum gel received.Contacted Shreya at your facility 09/06/2023--- 09/06/23 1311 ---RF previously reported as: Test not performed IU/mLTest not performed. No serum gel received.Contacted Shelbyat your facility 4Adenosine monophosphate.cyclic [Moles/Vol]on 86-47-6353Jhqzpl Citrullinated Peptid IgG/IgA1 units0-19[facility] HospitalComment on above:Negative <20 Weak positive 20 - 39 Moderate positive 40 - 59 Strong positive >59Performed at:[facility] [address] [id number] Director: Norm Alcaraz PhD, Phone: [phone] <20 Weak positive 20 - 39 Moderate positive 40 - 59 Strong positive >59Performed at:[facility] [address] [id number] Director: Norm Alcaraz PhD, Phone: [phone] perinuclear antineutrophil cytoplasmic antibodies measurementon 43-76-4302Dhowghgsrb cytoplasmic Ab.perinuclear.atypical IF (S) [Titer]<1:20 titerNeg:<1:20[facility] HospitalComment on above:The atypical pANCA pattern has been observed in asignificant percentage of patients with ulcerativecolitis,primary sclerosing cholangitis and autoimmune hepatitis.Performed at: [facility] [address] [id number] Director: Yan Escamilla MD, Phone: [phone] at: [address] [id number] Director: Norm Alcaraz PhD, Phone: [phone] capsulatum antibody detection by complement fixationon 08-28-2023H. capsulatum Ab CF Ql (S)NegativeNeg:<1:2FOhioHealth Nelsonville Health CenterComment on above: Performed at: [address] [id number] Director: Yan Escamilla MD, Phone: [phone] Ab [Units/volume] in Serum by Immunoassayon 25-21-0230Jneclottsdopkgt Ab IA Qn (S) <0.2 units0.0-0.9[facility] HospitalNo Panel Informationon 89-40-9461Pcsurlwonvkvj TestCOMMENT.[facility] HospitalComment on above:Test Ordered: [id number] [place] A IgG/IgM AntibodyCoxsackie A7 IgG 1:100 [...] Negative titer BN Reference Range: Neg:<1:10Performed at: [address] [id number] Director: Yan Escamilla MD, Phone: [phone] at: [address] [id number] Director: Norm Alcaraz PhD, Phone: [phone] ANCA (p-ANCA) Antibody<1:20 titerNeg:<1:20[facility] HospitalComment on above: The presence of positive [...] only by EIA. Ref. AM J Clin Spruer4679;111:507-513. Histoplasma Galactomannan AntigenNegative<0.5 ng/mLMemorial Health System Marietta Memorial HospitalComment on above:This test was developed and its performance characteristicsdetermined by [employer]. It has not been cleared orapproved by the Food and Drug Administration.Performed at: [facility] [employer] [place] [address], [place] [id number] Director: Janine Goodman MD, Phone: [phone] 3 Ab [Units/volume] in Serum by Immunoassayon 08-28-2023 Proteinase 3 Ab IA Qn (S)<0.2 units0.0-0.9[facility] HospitalCL- 70 extractable nuclear Ab IA Qn (S)on 34-00-6124Xdb-70 (Scleroderma) Antibody <0.2 AI0.0-0.9[facility] HospitalComment on above:Performed at: [facility] NetworksJeff[facility] [place] [id number] Director: Norm Alcaraz PhD, Phone: [phone] at: [facility] [employer] [id number] Director: Norm Alcaraz PhD, Phone: [phone] Serum angiotensin converting enzyme (NANDO) measurementon 36-50-6924Siwsyylezkj converting enzyme [Catalytic activity/Vol]34 U/G45-39DhebgvcjoMemorial Health System Marietta Memorial HospitalComment on above:Performed at: [facility] [employer] [id number] Director: Norm Alcaraz PhD, Phone: [phone] classic neutrophil cytoplasmic antibody titer by immunofluorescenceon 08-28-2023 Neutrophil cytoplasmic Ab.classic IF (S) [Titer]<1:20 titerNeg:<1:20[facility] Hospitalerum or plasma rheumatoid factor measurement (units/volume)on 75-04-7663Ornptgbowr factor Qn[IU]/mL<14.0[facility] HospitalComment on above:Performed at: [facility] [address] [place] [id number] Director: Norm Alcaraz PhD, Phone: [phone] Laboratory - Chemistry and Chemistry - challengeon 93-31-9442Jwnpqbsdk (Vitamin B12) [Mass/Vol]3286.0 pg/mL193.0-986.0[facility] HospitalTSH Qn 1.287 m[IU]/L0.358-3.740[facility] HospitalLaboratory - Hematology and Cell countson 64-60-2878IKK (Bld) [Velocity]126 mm/h<=20[facility] HospitalNo Panel Informationon 96-51-3322Z-Reactive Protein, Quantitative 4.28 mg/dL<=0.50[facility] HospitalFolate21.60 ng/mL8.60-58.90 [facility] Hospitalerum or plasma free cefuroxime measurement (mass/volume)on 60-29-1982Pqurdohenc free [Mass/Vol]NegativeNegativeMemorial Health System Marietta Memorial HospitalComment on above:Performed at: [facility] [address] [id number] Director: Norm Alcaraz PhD, Phone: [phone] Auto (Bld) [#/Vol]on 17-60-0630Ksnaoxamw (Bld) [#/Vol]0.0 10 3/uL0.0-0.1FOhioHealth Nelsonville Health CenterBasophils/100 WBC Auto (Bld)on 13-81-0205Ffhevfoef/100 WBC (Bld)0.2 %0.2-2.0[facility] Eosinophils/100 WBC Auto (Bld)on 67-49-7989Djhmlkqtkmn/100 WBC (Bld)0.0 %0.9-7.0 [facility] HospitalErythrocyte distribution width Auto (RBC) [Ratio]on 58-71-3308Gtfgkdvtkvc distribution width (RBC) [Ratio]12.5 %11.0-15.0 [facility] HospitalEstimated glomerular filtration rate (GFR) non- Americanon 56-99-8327PKW/1.73 sq M.predicted among non-blacks MDRD (S/P/Bld) [Vol rate/Area]mL/min/{1.73_m2}>=60[facility] Globulin Calc (S) [Mass/Vol]on 31-33-0330Jzrgjitr (S) [Mass/Vol]4.7 g/dL [facility] HospitalHematocrit Auto (Bld) [Volume fraction]on 75-82-2169Cestddrmci (Bld) [Volume fraction]34.7 %42.0-54.0[facility] HospitalHemoglobin [Mass/volume] in Bloodon 82-32-6615Jynkuxctyn (Bld) [Mass/Vol]11.2 g/dL14.0-18.0[facility] HospitalLaboratory - Chemistry and Chemistry - challengeon 66-32-1126Fmbqmcs [Mass/Vol]3.2 g/dL 3.4-5.0[facility] HospitalALP [Catalytic activity/Vol]66 U/L46-116 [facility] HospitalALT [Catalytic activity/Vol]33 U/L16-63 [facility] HospitalAST [Catalytic activity/Vol]24 U/L15-37 [facility] HospitalBilirubin [Mass/Vol]0.6 mg/dL0.2-1.0[facility] HospitalCalcium [Mass/Vol]8.9 mg/dL8.5-10.1FOhioHealth Nelsonville Health CenterChloride [Moles/Vol]101 mmol/Z91-063PhzniocduMemorial Health System Marietta Memorial HospitalCO2 [Moles/Vol]27.4 mmol/L21.0-32.0[facility] Creatinine [Mass/Vol]1.06 mg/dL0.70-1.30[facility] GFR/1.73 sq M.predicted MDRD (S/P/Bld) [Vol rate/Area]mL/min/{1.73_m2}>=60 [facility] HospitalGlucose [Mass/Vol]115 mg/zG92-202CoxpmaxlvMemorial Health System Marietta Memorial HospitalNatriuretic peptide B (Bld) [Mass/Vol]397.0 pg/mL<=900.0 [facility] HospitalPotassium [Moles/Vol]3.8 mmol/L3.5-5.1FOhioHealth Nelsonville Health CenterProtein [Mass/Vol]7.9 g/dL6.4-8.2FSouthern Ohio Medical Centerodium [Moles/Vol]138 mmol/D912-952NwpxppndgMemorial Health System Marietta Memorial HospitalUrea nitrogen [Mass/Vol]15.0 mg/dL7.0-18.0[facility] HospitalUrea nitrogen/Creatinine [Mass ratio]14.2 mg/mgMemorial Health System Marietta Memorial HospitalLaboratory - Hematology and Cell countson 05-56-1016PRW (Bld) [Velocity] mm/h<=20[facility] HospitalImmature granulocytes/100 WBC (Bld)0.4 %0.0-0.5FOhioHealth Nelsonville Health CenterLaboratory - Microbiology and Antimicrobial susceptibilityon 33-29-0957MFZG-CoV-2 (COVID-19) RNA BRYN+probe Ql (Unsp spec)NegativeNEGATIVEMemorial Health System Marietta Memorial HospitalComment on above: This test has not [...] nucleated erythrocytes in Blood by Automated counon 47-10-9945EFY corrected for nucl RBC Auto (Bld) [#/Vol]9.9 10 3/uL4.0-11.0[facility] HospitalLymphocytes Auto (Bld) [#/Vol]on 39-67-7788Ulvvcndywog (Bld) [#/Vol]0.8 10 3/uL1.2-3.8[facility] HospitalLymphocytes/100 WBC Auto (Bld)on 83-82-6155Kehjigkiukw/100 WBC (Bld)8.0 %20.5-60.0Cherrington HospitalH Auto (RBC) [Entitic mass]on 84-00-5336NIR (RBC) [Entitic mass]32.3 pg 25.9-34.0[facility] HospitalMCHC Auto (RBC) [Mass/Vol]on 13-13-3467TGVL (RBC) [Mass/Vol]32.3 g/dL29.9-35.2FOhioHealth Nelsonville Health CenterMCV Auto (RBC) [Entitic vol]on 90-09-4308FPD (RBC) [Entitic vol]100.0 fL 80.0-94.0[facility] HospitalMonocytes Auto (Bld) [#/Vol]on 90-39-5243Gtxijynei (Bld) [#/Vol]1.0 10 3/uL0.3-0.8[facility] HospitalMonocytes/100 WBC Auto (Bld)on 17-47-2168Gubapecuu/100 WBC (Bld)9.9 % 1.7-12.0[facility] HospitalNeutrophils Auto (Bld) [#/Vol]on 60-12-6542Gbjrnblssxa (Bld) [#/Vol]8.1 10 3/uL1.4-6.5FOhioHealth Nelsonville Health CenterNeutrophils/100 WBC Auto (Bld)on 23-24-5755Jofvkozjvyo/100 WBC (Bld)81.5 % 43.0-75.0[facility] HospitalNo Panel Informationon 22-75-1240Q- Reactive Protein, Quantitative6.36 mg/dL<=0.50[facility] Eosinophils # (Auto)0.0 10 3/uL0.0-0.7FOhioHealth Nelsonville Health CenterImmature Granulocyte # (Auto)0.04 10 3/uL0.00-0.03[facility] Troponin I High Arzfvetyaby26.9 pg/mL4.0-76.1FOhioHealth Nelsonville Health Center Comment on above:CUT-OFF POINTS HAVE BEEN ESTABLISHED [...] DIAGNOSTIC AND CLINICAL INFORMATION.Bedside Influenza Type A AntigenNegativeMemorial Health System Marietta Memorial HospitalComment on above:Negative for Flu A protein antigen. Infection due to Flu Acannot be ruled out. Flu A antigen in thesample may bebelow the detection limit of the test.Bedside Influenza Type B AntigenNegativeMemorial Health System Marietta Memorial HospitalComment on above:Negative for Flu B protein antigen. Infection due to Flu Bcannot be ruled out. Flu B antigen in thesample may bebelow the detection limit of the test.Platelet mean volume Auto (Bld) [Entitic vol]on 69-95-0085Crflrbox mean volume (Bld) [Entitic vol]9.5 fL9.5-13.5FOhioHealth Nelsonville Health CenterPlatelets Auto (Bld) [#/Vol]on 21-49-4558Lmeqesqit (Bld) [#/Vol]288 10 3/oY527-969CuonoupktMemorial Health System Marietta Memorial HospitalRBC Auto (Bld) [#/Vol]on 12-02-6489EKA (Bld) [#/Vol]3.47 10 6/uL4.70-6.10 [facility] Hospitalerum or plasma albumin/globulin mass ratioon 89-72-9585Zfogbik/Globulin [Mass ratio]0.7 {ratio}[facility] Hospitalerum or plasma anion gap determinationon 97-73-9671Rlmrr gap [Moles/Vol] 13.4 mmol/[facility] SystemXR KNEE LEFT 4+ VIEWS (SPECIFY VIEWS IN COMMENTS)on 17-30-4577SR KNEE LEFT 4+ VIEWS (SPECIFY VIEWS IN COMMENTS)X- rays of the left knee from [facility] taken today are reviewed. My personal [...] HUFF on SatJan 16, 2023 10:52:01 AM EDTProvidence Hospital AmbulatoryComment on above:Order Comment: Injury/Trauma or Illness?:Illness/Other How long have you had these symptoms (acute/chronic)?:Unknown Reason for exam?:U History of cancer?:n/a Surgeries, chemotherapy, or radiation?:n/a Type of Exam?:Unknown Additional signs and symptoms?:UXR ANKLE LEFT 3+ VIEWS (STANDARD)on 35-55-1283IE ANKLE LEFT 3+ VIEWS (STANDARD)Weightbearing radiographs of [...] EDOUARD on SatAug 28, 2022 1:49:21 PM EDTProvidence Hospital AmbulatoryComment on above:Order Comment: Injury/Trauma or Illness?:Illness/Other How long have you had these symptoms (acute/chronic)?:Unknown Reason for exam?:n/a History of cancer?:n/a Surgeries, chemotherapy, or radiation?:n/a Type of Exam?:Unknown Additional signs and symptoms?:n/aXR ANKLE RIGHT 3+ VIEWS (STANDARD)on 42-87-3247PT ANKLE RIGHT 3+ VIEWS (STANDARD)Weightbearing radiographs of [...] EDOUARD on SatAug 28, 2022 1:50:20 PM EDTProvidence Hospital AmbulatoryComment on above:Order Comment: Injury/Trauma or Illness?:Illness/Other How long have you had these symptoms (acute/chronic)?:Unknown Reason for exam?:n/a History of cancer?:n/a Surgeries, chemotherapy, or radiation?:n/a Type of Exam?:Unknown Additional signs and symptoms?:n/aXR FOOT LEFT 2 VIEWSon 10-20-9929OJ FOOT LEFT 2 VIEWSWeightbearing radiographs of the [...] EDOUARD on SatAug 28, 2022 1:49:28 PM EDTProvidence Hospital AmbulatoryComment on above:Order Comment: Injury/Trauma or Illness?:Illness/Other How long have you had these symptoms (acute/chronic)?:Unknown Reason for exam?:n/a History of cancer?:n/a Surgeries, chemotherapy, or radiation?:n/a Type of Exam?:Unknown Additional signs and symptoms?:n/aXR FOOT RIGHT 2 VIEWSon 83-05-6238OJ FOOT RIGHT 2 VIEWSWeightbearing radiographs of the [...] EDOUARD on SatAug 28, 2022 1:50:37 PM EDTProvidence Hospital AmbulatoryComment on above:Order Comment: Injury/Trauma or Illness?:Illness/Other How long have you had these symptoms (acute/chronic)?:Unknown Reason for exam?:n/a History of cancer?:n/a Surgeries, chemotherapy, or radiation?:n/a Type of Exam?:Unknown Additional signs and symptoms?:n/aCBC AUTO DIFFon 85-71-9834IWRJ #0.1 103/ul Normal0.0-0.1[facility] HospitalComment on above:Performed By: #### DATCBC #### [facility] [address] [address] [address] Joni SandersBasophils/100 WBC (Bld)1.0 %Normal0.2-2.0The [facility] Comment on above:Performed By: #### DATCBC #### [facility] [address] [address] [address] Joni Yi #0.1 103/ulNormal0.0-0.7The [facility] HospitalComment on above: Performed By: #### DATCBC #### [facility] [address] [address] [address] Joni Davilaosinophils/100 WBC (Bld)2.0 %Normal0.9-7.0The [facility] Comment on above:Performed By: #### DATCBC #### [facility] [address] [place] [address] Dr. Joni Davilarythrocyte distribution width (RBC) [Ratio]12.4 %Kmjiqm44.0-15.0 The [facility] HospitalComment on above:Performed By: #### DATCBC #### [facility] [address] [place] [address] Dr. Joni SandersHematocrit (Bld) [Volume fraction]43.7 %Aikmxt85.0-54.0The [facility] HospitalComment on above:Performed By: #### DATCBC #### [facility] [address] [place] [address] Dr. Joni SandersHemoglobin (Bld) [Mass/Vol]14.6 g/fZWceyrz76.0-18.0The [facility] HospitalComment on above:Performed By: #### DATCBC #### [facility] [address] [place] [address] Dr. Joni Cobb #0.02 10e3/ulNormal0.00-0.03The [facility] HospitalComment on above:Performed By: #### DATCBC #### [facility] [address] [place] [address] Dr. Joni Cobb %0.3 %Normal0.0-0.5The [facility] HospitalComment on above: Performed By: #### DATCBC #### [facility] [address] [place] [address] Dr. Joni RiveraH #2.0 103/ulNormal1.2-3.8The [facility] HospitalComment on above:Performed By: #### DATCBC #### [facility] [address] [place] [address] Dr. Joni Riverahocytes/100 WBC (Bld)33.3 %Dtroqk96.5-60.0The [facility] HospitalComment on above:Performed By: #### DATCBC #### [facility] [address] [place] [address] Dr. Joni William (RBC) [Entitic mass]32.6 dpBcuaiw94.9-34.0The [facility] HospitalComment on above:Performed By: #### DATCBC #### [facility] [address] [place] [address] Dr. Joni William (RBC) [Mass/Vol]33.4 g/fULccphw50.9-35.2The [facility] HospitalComment on above:Performed By: #### DATCBC #### [facility] [address] [place] [address] Dr. Joni William (RBC) [Entitic vol]97.5 fLCritically high80.0-94.0The [facility] HospitalComment on above:Performed By: #### DATCBC #### [facility] [address] [place] [address] Dr. Joni Esposito #0.6 103/ulNormal0.3-0.8The [facility] HospitalComment on above:Performed By: #### DATCBC #### [facility] [address] [place] [address] Dr. Joni Thorpeocytes/100 WBC (Bld)9.8 %Normal1.7-12.0The [facility] Comment on above:Performed By: #### DATCBC #### [facility] [address] [place] [address] Dr. Joni Price #3.2 103/ulNormal1.4-6.5The [facility] HospitalComment on above:Performed By: #### DATCBC #### [facility] [address] [place] [address] Dr. Joni Hanydutrophils/100 WBC (Bld)53.6 %Qrhmqh88.0-75.0The [facility] HospitalComment on above:Performed By: #### DATCBC #### [facility] [address] [place] [address] Dr. Joni Walshlet mean volume (Bld) [Entitic vol]9.9 fLNormal9.5-13.5The [facility] HospitalComment on above:Performed By: #### DATCBC #### [facility] [address] [place] [address] Dr. Joni SandersPLT239 103/szBhjmzc690-613Nfr [facility] HospitalComment on above: Performed By: #### DATCBC #### [facility] [address] [place] [address] Dr. Joni SandersRBC4.48 106/ulCritically low4.70-6.10The Hemet HospitalComment on above:Performed By: #### DATCBC #### [facility] [address] [place] [address] Dr. Joni SandersWBC5.9 103/ulNormal4.0-11.0The [facility] HospitalComment on above: Performed By: #### DATCBC #### [facility] [address] [place] [address] Dr. Joni Mills- BMP WITH LIPIDon 73-96-3432Aqcxb gap [Moles/Vol]12.7 mmol/L NormalThe [facility] HospitalComment on above:Performed By: #### DATBMP #### [facility] [address] [place] [address] Dr. Joni SandersCalcium [Mass/Vol]9.0 mg/dLNormal8.5-10.1[facility] Comment on above:Performed By: #### DATBMP #### [facility] [address] [place] [address] Dr. Joni SandersChloride [Moles/Vol]104 mmol/LWocgix02-166Fdk [facility] Comment on above:Performed By: #### DATBMP #### [facility] [address] [place] [address] Dr. Joni SandersCholesterol [Mass/Vol]188 mg/dLNormal<=200The [facility] Comment on above:Performed By: #### DATBMP #### [facility] [address] [place] [address] Dr. Joni SandersCholesterol in HDL [Mass/Vol]45 mg/sMGhrtkt38-40Rrm [facility] HospitalComment on above:Performed By: #### DATBMP #### [facility] [address] [place] [address] Dr. Joni SandersCholesterol in LDL [Mass/Vol]102.2 mg/dLNormalThe [facility] HospitalComment on above:Performed By: #### DATBMP #### [facility] [address] [address] [address] Joni SandersCO2 [Moles/Vol]27.7 mmol/QYkfcms04.0-32.0The [facility] Comment on above:Performed By: #### DATBMP #### [facility] [address] [place] [address] Dr. Joni SandersCreatinine [Mass/Vol]1.00 mg/dLNormal0.70-1.30The [facility] HospitalComment on above:Performed By: #### DATBMP #### [facility] [address] [place] [address] Dr. Joni DavilaGFR-AF SAUDI ARABIAN>60Normal>=60The [facility] HospitalComment on above:Performed By: #### DATBMP #### [facility] [address] [place] [address] Dr. Joni DavilaGFR-NON AF SAUDI ARABIAN>60Normal>=60The [facility] HospitalComment on above:Performed By: #### DATBMP #### [facility] [address] [place] [address] Dr. Joni SandersGlucose [Mass/Vol]107 mg/dLCritically dank98-621Jlk [facility] HospitalComment on above:Performed By: #### DATBMP #### [facility] [address] [place] [address] Dr. Joni BucknerL NORMAL> or = 60 mg/dl - LOW CARDIOVASCULAR RISK <40 mg/dl - HIGH CARDIOVASCULAR RISKNormalThGlenbeigh HospitalComment on above:Performed By: #### DATBMP #### [facility] [address] [place] [address] Dr. Joni SandersLDL CALC NORMALSEE BELOWMount St. Mary HospitalComment on above:Result Comment: <100 mg/dl OPTIMAL 100 - 129 mg/dl NEAR OR ABOVE OPTIMAL 130 - 159 mg/dl BORDERLINE HIGH 160 - 189 mg/dl HIGH >190 mg/dl VERY HIGH Performed By: #### DATBMP #### [facility] [address] [address] [address] Joni SandersPotassium [Moles/Vol]4.4 mmol/LNormal3.5-5.1The [facility] Comment on above:Performed By: #### DATBMP #### [facility] [address] [address] [address] Joni SandersSodium [Moles/Vol]140 mmol/XNypcbz288-990Thu [facility] Comment on above:Performed By: #### DATBMP #### [facility] [address] [address] [address] Joni SandersTriglyceride [Mass/Vol]204 mg/dLCritically high<=150The [facility] HospitalComment on above:Performed By: #### DATBMP #### [facility] [address] [address] [address] Joni SandersUrea nitrogen [Mass/Vol]22.0 mg/dLCritically high7.0-18.0The [facility] HospitalComment on above:Performed By: #### DATBMP #### [facility] [address] [address] [address] Joni SandersUrea nitrogen/Creatinine [Mass ratio]22.0 mg/mgNoWright-Patterson Medical CenterComment on above:Performed By: #### DATBMP #### [facility] [address] [address] [address] Joni SandersVLDL CALC40.8 mg/dLNoWright-Patterson Medical CenterComment on above: Performed By: #### DATBMP #### [facility] [address] [address] [address] Joni Sanders Vital Signs Date TimeVital SignValuePerforming HgymwtxjnCllzjsjc32-18-5551 14:01-0500Body eznlou955.9 cmSteven Rusher DPM Work Phone: [phone] [place], [place] 8293311-11-2025 14:01-0500Body mass index (BMI) [Ratio]25.36 kg/h1Ewrfff Rusher DPM Work Phone: [phone] [place], [place] 8293311-11-2025 14:01-0500Body .82 kgSteven Rusher DPM Work Phone: [phone] [place], [place] 8293310-29-2025 16:36-0400Body ewirei734.9 cmSteven Rusher DPM Work Phone: [phone] [place], [place] 8293310-29-2025 16:36-0400Body mass index (BMI) [Ratio]25.5 kg/x0Vgqfpz Rusher DPM Work Phone: [phone] [place], [place] 8293310-29-2025 16:36-0400Body ttyykq75.28 kgSteven Rusher DPM Work Phone: [phone] [place], [place] 8293310-24-2025 09:42-0400Body lnjatu336.88 cmBenjamin Ball DO Work Phone: [phone] [place], [place] 6898010-24-2025 09:42-0400 Body mass index (BMI) [Ratio]29.9 kg/i0Hlqqciae Ball DO Work Phone: [phone] [place], [place] 6898010-24-2025 09:42-0400 Body ildlhb52.96 kgBenjamin Ball DO Work Phone: [phone] [place], [place] 6898010-24-2025 09:42-0400 Diastolic blood teoxckpd47 mm[Hg]Yuli Ball DO Work Phone: [phone] [place], [place] 6898010-24-2025 09:42-0400 Heart bhwc026 /minBenjamin Ball DO Work Phone: [phone]10-24-2025 09:42-0400 Respiratory rate12 /minBenjamin Ball DO Work Phone: [phone] [place], [place] 6410110-24-2025 09:42-0400 Systolic blood sokytuxw595 mm[Hg]Yuli Ball DO Work Phone: [facility]10-09-2025 11:17-0400 Body uorjbm216.9 cmSteven Rusher DPM Work Phone: [phone] [place], [place] 8293310-09-2025 11:17-0400Body mass index (BMI) [Ratio]25.58 kg/m8Gqfhjy Rusher DPM Work Phone: [phone] [place], [place] 8293310-09-2025 11:17-0400Body imqlul42.55 kgSteven Rusher DPM Work Phone: [phone] [place], [place] 8293310-01-2025 10:20-0400Body ublcos825.9 cmSteven Rusher DPM Work Phone: [phone] [place], [place] 8293310-01-2025 10:20-0400Body mass index (BMI) [Ratio]25.58 kg/b8Tnfgoo Rusher DPM Work Phone: [phone] [place], [place] 8293310-01-2025 10:20-0400Body ypnzds64.55 kgSteven Rusher DPM Work Phone: [phone] [place], [place] 8293309-26-2025 08:48-0400Body .9 cmSteven Rusher DPM Work Phone: [phone] [place], [place] 8293309-26-2025 08:48-0400Body mass index (BMI) [Ratio]25.58 kg/o1Zrwppo Rusher DPM Work Phone: [phone] [place], [place] 8293309-26-2025 08:48-0400Body xqussv18.55 kgSteven Rusher DPM Work Phone: [phone] [place], [place] 8293309-11-2025 10:02-0400Body eycdjw067.9 cmZabrina Suarez MD Work Phone: c[facility] CenterSkcwpo62-99-8159 10:02-0400Body mass index (BMI) [Ratio]26.01 kg/s5TlhkolZabrina Suarez MD Work Phone: [place] Xfwgsz72-63-6015 10:02-0400Body ambrtq82 kg Zabrina Suarez MD Work Phone: [phone] Vkgigk36-57-7399 10:02-0400Diastolic blood ievgbxnp09 mm[Hg]Zabrina Suarez MD Work Phone: [place] Pkjhet48-78-8785 10:02-0400Heart rate91 /min Zabrina Suarez MD Work Phone: [facility] Hlxede03-93-9585 10:02-0400Systolic blood dssefwzq757 mm[Hg]Zabrina Suarez MD Work Phone: [phone]and Szcoyk31-01-6716 13:02-0400Body zvrwwe528.9 Alhaji Hopper MD Work Phone: c[facility] CenterWpower45-48-8238 13:02-0400Body mass index (BMI) [Ratio]25.09 kg/l4XoqojirisoJose Antonio Hopper MD Work Phone: c[facility] CenterGxwtyn90-06-5602 13:02-0400Body temperature 98.6 [degF]Jose Antonio Hopper MD Work Phone: [facility]and Cywnmd82-74-0258 13:02-0400Body qigntp31.92 kgJose Antonio Hopper MD Work Phone: c[facility] CenterZyxkkv96-75-8657 13:02-0400Diastolic blood wqkaihfq02 mm[Hg]Jose Antonio Hopper MD Work Phone: [facility]and Pbdlch40-83-2332 13:02-0400Heart rate86 /min Jose Antonio Hopper MD Work Phone: [facility]and Cocpdc43-27-0893 13:02-0400Respiratory rate 17 /minJose Antonio Hopper MD Work Phone: [facility]and Lkogqr95-56-5727 13:02-8242UlU3% (BldA) [Mass fraction]96 %Jose Antonio Hopper MD Work Phone: c[facility] CenterDznkpk97-28-2785 13:02-0400Systolic blood odhzuhzn030 mm[Hg]Jose Antonio Hopper MD Work Phone: c[facility] CenterMraniz31-24-1129 09:04-0400Body mass index (BMI) [Ratio]25.35 kg/k0DqpraTriston Riggs MD Work Phone: [facility]07-28-2025 09:04-0400Body temperature 98.01 [degF]Triston Riggs MD Work Phone: [facility]07-28-2025 09:04-0400Body msuwet89.8 kgTriston Riggs MD Work Phone: [facility]07-28-2025 09:04-0400Diastolic blood eznicypn30 mm[Hg]Triston Riggs MD Work Phone: [facility]07-28-2025 09:04-0400Heart rate85 /min Triston Riggs MD Work Phone: [facility]07-28-2025 09:04-0400Respiratory rate 16 /minTriston Riggs MD Work Phone: [facility]07-28-2025 09:04-5539YcV6% (BldA) [Mass fraction]86 %Triston Riggs MD Work Phone: [facility]07-28-2025 09:04-0400Systolic blood mm[Hg]Triston Riggs MD Work Phone: [facility]06-09-2025 22:15-0400Body temperature 97.2 [degF]Triston Riggs MD Work Phone: [facility]06-09-2025 22:15-0400Diastolic blood vwxzicut93 mm[Hg]Triston Riggs MD Work Phone: [facility]06-09-2025 22:15-0400Heart rate88 /min Triston Riggs MD Work Phone: [facility]06-09-2025 22:15-0400Respiratory rate 16 /minTriston Riggs MD Work Phone: [facility]06-09-2025 22:15-3291BhY3% (BldA) [Mass fraction]98 %Triston Riggs MD Work Phone: [facility]06-09-2025 22:15-0400Systolic blood rkaibsrl584 mm[Hg]Triston Riggs MD Work Phone: [facility]06-06-2025 09:04-0400Body obbzzg905.9 cmNageneva Mendiola MD Work Phone: [facility]06-06-2025 09:04-0400Body mass index (BMI) [Ratio]23.46 kg/t6EypnjqiZac Mendiola MD Work Phone: [facility]06-06-2025 09:04-0400Body evrejs05.47 kgNageneva Mendiola MD Work Phone: [facility]06-06-2025 09:04-0400Diastolic blood nntwpubd68 mm[Hg]Zac Mendiola MD Work Phone: [facility]06-06-2025 09:04-0400Heart rate64 /min Zac Mendiola MD Work Phone: [facility]06-06-2025 09:04-8338ZqC2% (BldA) [Mass fraction]99 %Zac Mendiola MD Work Phone: [facility]06-06-2025 09:04-0400Systolic blood oypwmfjp248 mm[Hg]Zac Mendiola MD Work Phone: [facility]06-05-2025 13:58-0400Body temperature 96.8 [degF]Triston Riggs MD Work Phone: [facility]06-05-2025 13:58-0400Diastolic blood pzgyxwud95 mm[Hg]Triston Riggs MD Work Phone: [facility]06-05-2025 13:58-0400Heart rate81 /min Triston Riggs MD Work Phone: [facility]06-05-2025 13:58-0400Respiratory rate 16 /minTriston Riggs MD Work Phone: [facility]06-05-2025 13:58-0623MpY8% (BldA) [Mass fraction]97 %Triston Riggs MD Work Phone: [facility]06-05-2025 13:58-0400Systolic blood lpzvdylp782 mm[Hg]Triston Riggs MD Work Phone: [facility]05-30-2025 13:02-0400Body ibkuzh605.9 Alhaji Hopper MD Work Phone: c[facility] CenterBhdrlu35-11-6298 13:02-0400Body mass index (BMI) [Ratio]26.99 kg/l0IbcwyeakiyJose Antonio Hopper MD Work Phone: c[facility] CenterMygzlu96-91-7935 13:02-0400Body temperature 98.6 [degF]Jose Antonio Hopper MD Work Phone: c[facility] CenterRqilgz43-09-5721 13:02-0400Body oahctd13.27 kgJose Antonio Hopper MD Work Phone: c[facility] CenterMetfln08-78-7505 13:02-0400Diastolic blood uxreakiq25 mm[Hg]Jose Antonio Hopper MD Work Phone: [facility] hospitaland Qiyatz70-43-1514 13:02-0400Heart rate81 /min Jose Antonio Hopper MD Work Phone: [facility] hospitaland Eakqwq45-78-0136 13:02-0400Respiratory rate 16 /minJose Antonio Hopper MD Work Phone: c[facility] CenterQsbdto89-29-0829 13:02-9367QlH3% (BldA) [Mass fraction]96 %Jose Antonio Hopper MD Work Phone: [phone] Hfqntp74-20-1606 13:02-0400Systolic blood udnqmbob986 mm[Hg]Jose Antonio Hopper MD Work Phone: [phone] Lvyhzg14-82-1419 08:44-0400Body oydpqx705.9 cmZabrina Suarez MD Work Phone: SlevelK[facility] MemorialIiqllz78-28-2541 08:44-0400Body mass index (BMI) [Ratio]27.12 kg/i0ZvgysyZabrina Suarez MD Work Phone: [place] Wtpgua44-79-7311 08:44-0400Body temperature 97.9 [degF]Zabrina Suarez MD Work Phone: NlevelK[facility] MemorialOejubo56-32-8076 08:44-0400Body mbaabz54.7 kgZabrina Suarez MD Work Phone: BlevelK[facility] Greene MemorialQmuyzo96-95-5431 08:44-0400Diastolic blood sfehdeiy75 mm[Hg]Zabrina Suarez MD Work Phone: [place] Eqkfmu38-42-8353 08:44-0400Heart rate83 /min Zabrina Suarez MD Work Phone: [place] Camaup45-39-9268 08:44-0400Systolic blood degxifwh900 mm[Hg]Zabrina Suarez MD Work Phone: PlevelK[facility]tering [facility] Greene MemorialZaxyhg66-41-0065 14:34-0400Body naxkge310.9 Kathia Ly APRN.CNP Work Phone: [facility]04-30-2025 14:34-0400Body mass index (BMI) [Ratio]26.72 kg/q3CfkytxdXiomara Ly APRN.CNP Work Phone: [facility]04-30-2025 14:34-0400Body temperature 97.2 [degF]Xiomara Malachi MARKETING SERVICES COORDINATOR.SEO SPECIALIST Work Phone: [phone]04-30-2025 14:34-0400Body pigtjz72.36 kgXiomara Calderonman MARKETING SERVICES COORDINATOR.SEO SPECIALIST Work Phone: [phone]04-30-2025 14:34-0400Diastolic blood mm[Hg]Xiomara Calderonman MARKETING SERVICES COORDINATOR.SEO SPECIALIST Work Phone: [phone]04-30-2025 14:34-0400Heart rate84 /min Xiomara Calderonman MARKETING SERVICES COORDINATOR.SEO SPECIALIST Work Phone: [phone]04-30-2025 14:34-9902LnO4% (BldA) [Mass fraction]95 %Xiomara Calderonman MARKETING SERVICES COORDINATOR.SEO SPECIALIST Work Phone: [phone]04-30-2025 14:34-0400Systolic blood nfroqote212 mm[Hg]Xiomara Calderonman MARKETING SERVICES COORDINATOR.SEO SPECIALIST Work Phone: [phone]04-30-2025 12:51-0400Body temperature 96.8 [degF]Triston Riggs MD Work Phone: [phone]04-30-2025 12:51-0400Diastolic blood rpcupwqx97 mm[Hg]Triston Riggs MD Work Phone: [phone]04-30-2025 12:51-0400Heart rate88 /min Triston Riggs MD Work Phone: [phone]04-30-2025 12:51-0400Respiratory rate 16 /minTriston Riggs MD Work Phone: [phone] [address]-30-2025 12:51-2314YzU8% (BldA) [Mass fraction]98 %Triston Riggs MD Work Phone: [place] [address]-30-2025 12:51-0400Systolic blood odamhrzq549 mm[Hg]Triston Riggs MD Work Phone: [place] [address]-11-2025 12:20-0400Heart rate67 /min Shay Dennis MD Work Phone: [facility]04-11-2025 12:20-0400Respiratory rate 16 /minShay Dnenis MD Work Phone: [facility]04-11-2025 12:20-5431OiU0% (BldA) [Mass fraction]99 %Shay Dennis MD Work Phone: [facility]04-11-2025 12:10-0400Diastolic blood ezokdjpc73 mm[Hg]Shay Dennis MD Work Phone: [facility]04-11-2025 12:10-0400Systolic blood qchpfaki923 mm[Hg]Shay Dennis MD Work Phone: [phone]04-11-2025 11:47-0400Body temperature 96.8 [degF]Shay Dennis MD Work Phone: [facility]04-11-2025 10:49-0400Body vlwtuk528.9 cmAyamil Dennis MD Work Phone: [facility]04-11-2025 10:49-0400Body mass index (BMI) [Ratio]26.45 kg/x0VzjbjbShay Dennis MD Work Phone: [facility]04-11-2025 10:49-0400Body .45 kgShay Dennis MD Work Phone: [facility]03-28-2025 12:11-0400Body ullpri609.88 [facility]03[facility]20[facility] 12:11-0400Body mass index (BMI) [Ratio]27.3 kg/h4EiijeoptsMemorial Health System [facility]03-28-2025 12:11-0400Body cporuk91.28 kgMem[facility]03-28-2025 12:11-0400Diastolic blood kuztizvu31 mm[Hg][facility]03-28-2025 12:11-0400 Heart rate88 /[facility]03-28-2025 12:11-0400 Respiratory rate12 /[facility]03-28-2025 12:11-0400 Systolic blood hcemenzu132 mm[Hg][facility]03-21-2025 13:30-0400Body .9 cmVjuan francisco Hopper MD Work Phone: [facility]and Dfocul18-26-6019 13:30-0400Body mass index (BMI) [Ratio]25.36 kg/d8QbixdpilzmJose Antonio Hopper MD Work Phone: [facility]and Tmuyul97-36-9078 13:30-0400Body temperature 98.6 [degF]Jose Antonio Hopper MD Work Phone: [facility]and Ngprjo05-37-7290 13:30-0400Body .82 kgJose Antonio Hopper MD Work Phone: [facility]and Yxnzzs50-81-5240 13:30-0400Diastolic blood sossuiad64 mm[Hg]Jose Antonio Hopper MD Work Phone: [facility]and Nfsxzw77-80-3000 13:30-0400Heart rate77 /min Jose Antonio Hopper MD Work Phone: [facility]and Fmcdfb13-82-6321 13:30-0400Respiratory rate 15 /minJose Antonio Hopper MD Work Phone: [facility]and Fakpye87-20-7936 13:30-9519WdZ9% (BldA) [Mass fraction]96 %Jose Antonio Hopper MD Work Phone: [facility]and Xliwts52-52-8755 13:30-0400Systolic blood urckoysk425 mm[Hg]Jose Antonio Hopper MD Work Phone: [facility]and Qgdnic85-56-4735 10:43-0400Body .9 cmSue Terrell MD Work Phone: [facility]03-10-2025 10:43-0400Body mass index (BMI) [Ratio]25.44 kg/x4KsercxSue Terrell MD Work Phone: [facility]03-10-2025 10:43-0400Body temperature 97.9 [degF]Sue Terrell MD Work Phone: [facility]03-10-2025 10:43-0400Body uvdjsk42.09 kgSue Terrell MD Work Phone: [facility]03-10-2025 10:43-0400Diastolic blood utbqijnu64 mm[Hg]Sue Terrell MD Work Phone: [facility]03-10-2025 10:43-0400Heart rate78 /min Sue Terrell MD Work Phone: [facility]03-10-2025 10:43-8300WjG2% (BldA) [Mass fraction]96 %Sue Terrell MD Work Phone: [facility]03-10-2025 10:43-0400Systolic blood syjksdum920 mm[Hg]Sue Terrell MD Work Phone: [facility]03-04-2025 14:09-0500Body lqmedb668.9 Per Barragan APRN.SEO SPECIALIST Work Phone: [place] Jluwth25-73-6781 14:09-0500Body mass index (BMI) [Ratio]26.42 kg/l2IhfkjDella Barragan APRN.SEO SPECIALIST Work Phone: [place] Htywll72-24-4123 14:09-0500Body temperature 98.2 [degF]Della Barragan APRN.SEO SPECIALIST Work Phone: [place] Injcdh21-32-4878 14:09-0500Body klcicw09.36 kgDella Barragan APRN.SEO SPECIALIST Work Phone: [place] Gbwcth31-10-5476 14:09-0500Diastolic blood qoglcdxw46 mm[Hg]Della Barragna APRN.SEO SPECIALIST Work Phone: [place] Yeprmm28-49-3489 14:09-0500Heart rate82 /min Della Barragan MARKETING SERVICES COORDINATOR.SEO SPECIALIST Work Phone: [phone] Ddnqta75-81-0632 14:09-0500Respiratory rate 14 /minCardavey Barragan MARKETING SERVICES COORDINATOR.SEO SPECIALIST Work Phone: [phone] Ceqauv11-35-4810 14:09-0865GaT0% (BldA) [Mass fraction]98 %Della Barragan MARKETING SERVICES COORDINATOR.SEO SPECIALIST Work Phone: [phone] Mqzxmm00-19-0556 14:09-0500Systolic blood vuesittr316 mm[Hg]Della Barragan MARKETING SERVICES COORDINATOR.SEO SPECIALIST Work Phone: [phone] Nevpbo30-17-4879 13:27-0500Body spyyij050.9 Alhaji Hopper MD Work Phone: [place] Olhkgp85-04-7464 13:27-0500Body mass index (BMI) [Ratio]26.31 kg/f6GpyqkiotdwJose Antonio Hopper MD Work Phone: [place] Zpsvsm45-15-5647 13:27-0500Body temperature 98.6 [degF]Jose Antonio Hopper MD Work Phone: [place] Corojy75-40-2536 13:27-0500Body kg Jose Antonio Hopper MD Work Phone: [place] Yexnrv43-45-9543 13:27-0500Diastolic blood cndzlcyc28 mm[Hg]Jose Antonio Hopper MD Work Phone: [place] Qvsrbv62-31-0495 13:27-0500Heart rate75 /min Jose Antonio Hopper MD Work Phone: [place] Xtkgzh33-05-0644 13:27-0500Respiratory rate 16 /minJose Antonio Hopper MD Work Phone: [place] Dvjoca29-49-6023 13:27-4007MlC3% (BldA) [Mass fraction]98 %Jose Antonio Hopper MD Work Phone: c[facility] CenterVlvinj76-21-0494 13:27-0500Systolic blood mm[Hg]Jose Antonio Hopper MD Work Phone: c[facility] CenterRxpvis23-91-4906 12:49-0500Body temperature 97.2 [degF]Triston Riggs MD Work Phone: [facility]02-03-2025 12:49-0500Diastolic blood kywbxmwd10 mm[Hg]Triston Riggs MD Work Phone: [facility]02-03-2025 12:49-0500Heart rate89 /min Triston Riggs MD Work Phone: [facility]02-03-2025 12:49-0500Respiratory rate 16 /minTriston Riggs MD Work Phone: [facility]02-03-2025 12:49-8451AyE1% (BldA) [Mass fraction]97 %Triston Riggs MD Work Phone: [facility]02-03-2025 12:49-0500Systolic blood ohlilbze680 mm[Hg]Triston Riggs MD Work Phone: [facility]01-28-2025 16:31-0500Body zjeyut211.88 cmMem[facility]01-28-2025 16:31-0500Body mass index (BMI) [Ratio]25.6 kg/o3UfvbanxvyMemorial Health System [facility]01-28-2025 16:31-0500Body kgyjopaubng23.1 [degF][facility]01-28-2025 16:31-0500Body oujhlk95.78 kgMem[facility]01-28-2025 16:31-0500Diastolic blood qvaciowg41 mm[Hg][facility]01-28-2025 16:31-0500 Heart rate87 /[facility]01-28-2025 16:31-0500 Respiratory rate12 /[facility]01-28-2025 16:31-0500 Systolic blood uvlvlcut807 mm[Hg][facility]01-06-2025 09:15-0500Body odjyrkwbxqd50 [degF]Triston Riggs MD Work Phone: [facility]01-06-2025 09:15-0500Diastolic blood bkdahpxw12 mm[Hg]Triston Riggs MD Work Phone: [facility]01-06-2025 09:15-0500Heart rate91 /min Triston Riggs MD Work Phone: [facility]01-06-2025 09:15-0500Respiratory rate 16 /minTriston Riggs MD Work Phone: [facility]01-06-2025 09:15-1164EfU6% (BldA) [Mass fraction]98 %Triston Riggs MD Work Phone: [facility]01-06-2025 09:15-0500Systolic blood mm[Hg]Triston Riggs MD Work Phone: [facility]12-27-2024 14:15-0500Body vilhpc462.9 Alhaji Hopper MD Work Phone: [place] Ywnole42-98-2550 14:15-0500Body mass index (BMI) [Ratio]25.63 kg/x0ZkwdvealluJose Antonio Hopper MD Work Phone: [facility]and Kfuzqf48-62-1137 14:15-0500Body temperature 98.6 [degF]Jose Antonio Hopper MD Work Phone: [place] Lsqack35-61-9744 14:15-0500Body exjyle96.73 kgJose Antonio Hopper MD Work Phone: [place] Apllgs36-24-5768 14:15-0500Diastolic blood bhirakdd57 mm[Hg]Jose Antonio Hopper MD Work Phone: [place] Hmsezl72-68-9731 14:15-0500Heart rate83 /min Jose Antonio Hopper MD Work Phone: [place] Cdrtrx36-39-6481 14:15-0500Respiratory rate 16 /minJose Antonio Hopper MD Work Phone: cbl[facility]and Rswaqz19-39-4954 14:15-4905EqV6% (BldA) [Mass fraction]98 %Jose Antonio Hopper MD Work Phone: [facility]and Sttrgk32-41-8768 14:15-0500Systolic blood qvopoecb934 mm[Hg]Jose Antonio Hopper MD Work Phone: [place] Milyoo38-34-4963 12:22-0500Body vqhcqu946.9 cmSteffen Villa MD Work Phone: [phone] Nttdwv34-85-5230 12:22-0500Body mass index (BMI) [Ratio]25.3 kg/y5BzixqxSteffen Villa MD Work Phone: [phone] Pgjfwp62-81-8513 12:22-0500Body temperature 97.9 [degF]Steffen Villa MD Work Phone: [phone] Chfjek12-40-0361 12:22-0500Body .6 kgSteffen Villa MD Work Phone: [phone] Dfzslt56-30-9446 12:22-0500Diastolic blood crtsawuq75 mm[Hg]Steffen Villa MD Work Phone: [phone] Mcqrwk39-85-4398 12:22-0500Heart rate78 /min Steffen Villa MD Work Phone: [phone] Lbcrkh76-25-0269 12:22-0500Systolic blood yzrrcjcx565 mm[Hg]Steffen Villa MD Work Phone: [phone] Frebks81-35-6156 16:01-0500Body oqfkbp186.9 cmSue Terrell MD Work Phone: [phone]12-10-2024 16:01-0500Body mass index (BMI) [Ratio]25.23 kg/y2VguulySue Terrell MD Work Phone: [phone]12-10-2024 16:01-0500Body temperature 97.2 [degF]Sue Terrell MD Work Phone: [phone]12-10-2024 16:01-0500Body fejlpm63.37 kgSue Terrell MD Work Phone: [phone]12-10-2024 16:01-0500Diastolic blood cweckeqh73 mm[Hg]Sue Terrell MD Work Phone: [phone]12-10-2024 16:01-0500Heart rate81 /min Sue Terrell MD Work Phone: [phone]12-10-2024 16:01-4071RcB6% (BldA) [Mass fraction]98 %Sue Terrell MD Work Phone: [phone]12-10-2024 16:01-0500Systolic blood dimvxamf924 mm[Hg]Sue Terrell MD Work Phone: [phone]12-02-2024 10:30-0500Body mass index (BMI) [Ratio]28.4 kg/d4GelyjhdLouise Cesar MD Work Phone: [phone]12-02-2024 10:30-0500Body temperature 97.81 [degF]Louise Cesar MD Work Phone: [phone]12-02-2024 10:30-0500Body kg Louise Cesar MD Work Phone: [phone]12-02-2024 10:30-0500Diastolic blood sscrkioj58 mm[Hg]Louise Cesar MD Work Phone: [phone] [address]-02-2024 10:30-0500Heart rate76 /min Louise Cesar MD Work Phone: [facility]12-02-2024 10:30-8266FcG7% (BldA) [Mass fraction]96 %Louise Cesar MD Work Phone: [facility]12-02-2024 10:30-0500Systolic blood mm[Hg]Louise Cesar MD Work Phone: [facility]11-27-2024 10:27-0500Body evnncw496.9 Alhaji Hopper MD Work Phone: c[facility] CenterYiksti92-42-8895 10:27-0500Body mass index (BMI) [Ratio]28.35 kg/e4NjyeimebdbJose Antonio Hopper MD Work Phone: c[facility] CenterTbklub80-11-4286 10:27-0500Body temperature 98.6 [degF]Jose Antonio Hopper MD Work Phone: [place] [address]-27-2024 10:27-0500Body jiqajb57.8 kgJose Antonio Hopper MD Work Phone: c[facility] CenterHvrhlb19-69-6704 10:27-0500Diastolic blood rdiowguo92 mm[Hg]Jose Antonio Hopper MD Work Phone: [place] [address]-27-2024 10:27-0500Heart rate75 /min Jose Antonio Hopper MD Work Phone: [place] [address]-27-2024 10:27-0500Respiratory rate 16 /minJose Antonio Hopper MD Work Phone: [place] [address]-27-2024 10:27-4575ZcT3% (BldA) [Mass fraction]98 %Jose Antonio Hopper MD Work Phone: [place] [address]-27-2024 10:27-0500Systolic blood epqjtcrq814 mm[Hg]Jose Antonio Hopper MD Work Phone: [facility] CenterSjgrvo96-60-9298 12:30-0500Diastolic blood mumqdehp54 mm[Hg]Vic Ponce MD Work Phone: c[facility] CenterUdjxmg03-29-4997 12:30-0500Heart rate85 /min Vic Ponce MD Work Phone: [facility] CenterNabkeq50-73-5579 12:30-0500Respiratory rate 21 /minEdmpaola Ponce MD Work Phone: [facility] CenterIrfden83-89-2296 12:30-2526NjJ2% (BldA) [Mass fraction]98 %Vic Ponce MD Work Phone: c[facility] CenterWhinyt63-15-2416 12:30-0500Systolic blood hysizhhk211 mm[Hg]Vic Ponce MD Work Phone: [facility] CenterPxebol97-76-7704 12:02-0500Body temperature 99.1 [degF]Vic Ponce MD Work Phone: c[facility] CenterUeqobo78-08-3713 11:48-0500Body abugqq208.3 cmSue Terrell MD Work Phone: [facility]11-04-2024 11:48-0500Body mass index (BMI) [Ratio]29.18 kg/c8PhzsdgSue Terrell MD Work Phone: [place] [address]-04-2024 11:48-0500Body emaoce83.89 kgSue Terrell MD Work Phone: [place] [address]-04-2024 11:48-0500Diastolic blood akczggmz53 mm[Hg]Sue Terrell MD Work Phone: [facility]11-04-2024 11:48-0500Heart rate89 /min Sue Terrell MD Work Phone: [place] [address]-04-2024 11:48-2921PbN0% (BldA) [Mass fraction]97 %Sue Terrell MD Work Phone: [phone]11-04-2024 11:48-0500Systolic blood hqjtxowa984 mm[Hg]Sue Terrell MD Work Phone: [phone]10-14-2024 09:26-0400Body icrsgw761.3 cmSteffen Vilal MD Work Phone: AD[facility] [id number] 09:26-0400Body mass index (BMI) [Ratio]28.9 kg/l3OtpdllSteffen Villa MD Work Phone: [phone] [id number] 09:26-0400Body temperature 97.7 [degF]Steffen Villa MD Work Phone: [phone] Ridge Medical [id number] 09:26-0400Body hgmvym61 kg Steffen Villa MD Work Phone: [phone] Ridge Medical [id number] 09:26-0400Diastolic blood jtpyzioh39 mm[Hg]Steffen Villa MD Work Phone: [phone] Ridge Medical CenterCyatzv60-35-3192 09:26-0400Heart rate92 /min Steffen Villa MD Work Phone: [phone] Health Greene MemorialJgojwp74-75-8881 09:26-0400Systolic blood enjaqqox272 mm[Hg]Steffen Villa MD Work Phone: [phone] Ridge Medical CenterInwpzt90-22-4737 13:48-0400Body kmoouh417.8 cmRuma Oshea PA-C Work Phone: [facility]10-01-2024 13:48-0400Body mass index (BMI) [Ratio]29.83 kg/x4IozhmlRuma Oshea PA-C Work Phone: [facility]10-01-2024 13:48-0400Body temperature 97.3 [degF]Ruma Zavarella PA-C Work Phone: [facility]10-01-2024 13:48-0400Body .3 kgRuma Shultzvarella PA-C Work Phone: [facility]10-01-2024 13:48-0400Diastolic blood kfosjpxz43 mm[Hg]Ruma Shultzvarella PA-C Work Phone: [facility]10-01-2024 13:48-0400Heart rate88 /min Ruma Shultzvarella PA-C Work Phone: [facility]10-01-2024 13:48-0400Respiratory rate 16 /minRuma Shultzvarella PA-C Work Phone: [facility]10-01-2024 13:48-9456QpY9% (BldA) [Mass fraction]98 %Ruma Duránella PA-C Work Phone: [facility]10-01-2024 13:48-0400Systolic blood tqepyjft815 mm[Hg]Ruma Duránella PA-C Work Phone: [facility]10-01-2024 10:24-0400Body mass index (BMI) [Ratio]27.8 kg/f5DtlfvvsLouise Cesar MD Work Phone: [facility]10-01-2024 10:24-0400Body wmdzxe58.99 kgLouise Cesar MD Work Phone: [facility]10-01-2024 10:24-0400Diastolic blood dgujwuhe11 mm[Hg]Louise Cesar MD Work Phone: [facility]10-01-2024 10:24-0400Heart rate82 /min Louise Cesar MD Work Phone: [facility]10-01-2024 10:24-9446ZiY1% (BldA) [Mass fraction]98 %Louise Cesar MD Work Phone: [facility]10-01-2024 10:24-0400Systolic blood ueibtljc494 mm[Hg]Louise Cesar MD Work Phone: [facility]08-28-2024 13:08-0400Body cbliay694.9 cmYehuda Dial MD Work Phone: [facility]08-28-2024 13:08-0400Body mass index (BMI) [Ratio]27.67 kg/t1ZsfmvmsYehuda Dial MD Work Phone: [facility]08-28-2024 13:08-0400Body ymutvu96.53 kgYehuda Dial MD Work Phone: [facility]08-28-2024 13:08-0400Diastolic blood mm[Hg]Yehuda Dial MD Work Phone: [facility]08-28-2024 13:08-0400Systolic blood sdsadjme201 mm[Hg]Yehuda Dial MD Work Phone: [facility]08-28-2024 10:38-0400Body fkulgq661.9 Alhaji Hopper MD Work Phone: cDiley Ridge Medical CenterBqhjrz03-55-1097 10:38-0400Body mass index (BMI) [Ratio]27.67 kg/q6UlabwuzhhnJose Antonio Hopper MD Work Phone: cDiley Ridge Medical CenterPbpyhc19-42-7790 10:38-0400Body temperature 98.6 [degF]Jose Antonio Hopper MD Work Phone: cDiley [facility] Medical CenterJehxcn84-03-7871 10:38-0400Body rakauv67.53 kgJose Antonio Hopper MD Work Phone: cDiley [facility] CenterXzwtpw73-72-9984 10:38-0400Diastolic blood tqckurwy73 mm[Hg]Jose Antonio Hopper MD Work Phone: cDiley [facility] Medical CenterNhkbtf97-78-9223 10:38-0400Heart rate86 /min Jose Antonio Hopper MD Work Phone: cDiley Ridge Medical CenterWzouuc86-70-1562 10:38-0400Respiratory rate 18 /minJose Antonio Hopper MD Work Phone: [place] [address]-28-2024 10:38-2584JlN5% (BldA) [Mass fraction]98 %Jose Antonio Hopper MD Work Phone: [place] [address]-28-2024 10:38-0400Systolic blood ozqiayyg101 mm[Hg]Jose Antonio Hopper MD Work Phone: cDiley Ridge Medical CenterTtzwrv95-88-5885 13:32-0400Body njwhta429.9 cmBay[facility] MARKETING SERVICES COORDINATOR.SEO SPECIALIST Work Phone: [facility]08-20-2024 13:32-0400Body mass index (BMI) [Ratio]27.12 kg/b3VhnrmssaBayhealth Hospital, [facility] MARKETING SERVICES COORDINATOR.SEO SPECIALIST Work Phone: [phone] [address]-20-2024 13:32-0400Body temperature 97.11 [degF][facility] MARKETING SERVICES COORDINATOR.SEO SPECIALIST Work Phone: [phone] [address]-20-2024 13:32-0400Body aiulmf71.7 kgBay[facility] MARKETING SERVICES COORDINATOR.SEO SPECIALIST Work Phone: [phone] [address]-20-2024 13:32-0400Diastolic blood wxeygrln09 mm[Hg][facility] MARKETING SERVICES COORDINATOR.SEO SPECIALIST Work Phone: [phone] [address]-20-2024 13:32-0400Heart rate75 /min [facility] MARKETING SERVICES COORDINATOR.SEO SPECIALIST Work Phone: [phone] [address]-20-2024 13:32-0400Respiratory rate 16 /minBay[facility] MARKETING SERVICES COORDINATOR.SEO SPECIALIST Work Phone: [phone] [address]-20-2024 13:32-4203KaU8% (BldA) [Mass fraction]95 %[facility] MARKETING SERVICES COORDINATOR.SEO SPECIALIST Work Phone: [facility]08-20-2024 13:32-0400Systolic blood swojoxni949 mm[Hg][facility] MARKETING SERVICES COORDINATOR.SEO SPECIALIST Work Phone: [facility]07-31-2024 11:36-0400Body osiewk697.9 Alhaji Hopper MD Work Phone: cDiley [facility] Medical CenterQivigw07-17-6853 11:36-0400Body mass index (BMI) [Ratio]29.02 kg/q5QpjngifrqkJose Antonio Hopper MD Work Phone: cD[facility] Medical CenterEzjahm41-39-0463 11:36-0400Body temperature 98.6 [degF]Jose Antonio Hopper MD Work Phone: cDiley [facility] CenterYpgzxx19-91-4480 11:36-0400Body iexqpv49.07 kgJose Antonio Hopper MD Work Phone: cDiley [facility] CenterQfhrwa13-68-6813 11:36-0400Diastolic blood mm[Hg]Jose Antonio Hopper MD Work Phone: cD[facility] CenterUkmary08-05-0338 11:36-0400Heart rate80 /min Jose Antonio Hopper MD Work Phone: cD[facility] CenterDjujjd31-15-3641 11:36-0400Respiratory rate 16 /minJose Antonio Hopper MD Work Phone: [place] [address]-31-2024 11:36-9556ZcP3% (BldA) [Mass fraction]96 %Jose Antonio Hopper MD Work Phone: [place] [address]-31-2024 11:36-0400Systolic blood thbdnvfa724 mm[Hg]Jose Antonio Hopper MD Work Phone: cD[facility] CenterPbqocx87-99-5580 15:28-0400Body lilgeb543.9 cmYehuda Dial MD Work Phone: [facility]07-22-2024 15:28-0400Body mass index (BMI) [Ratio]29.02 kg/d6VldfwqwYehuda Dial MD Work Phone: [facility]07-22-2024 15:28-0400Body unukyh20.07 kgYehuda Dial MD Work Phone: [place] [address]-22-2024 15:28-0400Diastolic blood vjbopipl69 mm[Hg]Yehuda Dial MD Work Phone: [facility]07-22-2024 15:28-0400Systolic blood wuqvwdog909 mm[Hg]Yehuda Dial MD Work Phone: [facility]07-22-2024 13:36-0400Body enczjb364.9 cmHacherylie Zavarella PA-C Work Phone: [facility]07-22-2024 13:36-0400Body mass index (BMI) [Ratio]29.08 kg/u9Hjzxkz Zavarella PA-C Work Phone: [facility]07-22-2024 13:36-0400Body temperature 97.2 [degF]Ruma Zavarella PA-C Work Phone: [facility]07-22-2024 13:36-0400Body nseezl55.25 kgHaylie Zavarella PA-C Work Phone: [place] [address]-22-2024 13:36-0400Diastolic blood wlidyjsv37 mm[Hg]Ruma Zavarella PA-C Work Phone: [place] [address]-22-2024 13:36-0400Heart rate80 /min Ruma Zavarella PA-C Work Phone: 1([phone]22-2024 13:36-0400Respiratory rate 16 /minRuma Zavarella PA-C Work Phone: [facility]07-22-2024 13:36-5230VjN0% (BldA) [Mass fraction]96 %Ruma Oshea PA-C Work Phone: [facility]07-22-2024 13:36-0400Systolic blood tguwwuxl420 mm[Hg]Ruma Carri PA-C Work Phone: [facility]07-05-2024 13:33-0400Body fbhecd663.9 cmBay[facility] MARKETING SERVICES COORDINATOR.SEO SPECIALIST Work Phone: [phone]07-05-2024 13:33-0400Body mass index (BMI) [Ratio]31.33 kg/t0XhyszcepBayhealth Hospital, [facility] MARKETING SERVICES COORDINATOR.[facility] Work Phone: [phone]07-05-2024 13:33-0400Body temperature 97.3 [degF][facility] MARKETING SERVICES COORDINATOR.SEO SPECIALIST Work Phone: [phone]07-05-2024 13:33-0400Body syebnp945.78 kgBayhealth [facility] MARKETING SERVICES COORDINATOR.[facility] Work Phone: [phone]07-05-2024 13:33-0400Respiratory rate 18 /minBay[facility], [facility] MARKETING SERVICES COORDINATOR.[facility] Work Phone: [phone]07-05-2024 13:33-1369KyY9% (BldA) [Mass fraction]100 %[facility] MARKETING SERVICES COORDINATOR.SEO SPECIALIST Work Phone: [phone]06-28-2024 13:40-0400Body ofscwg754.9 cmBay[facility] MARKETING SERVICES COORDINATOR.[facility] Work Phone: [phone]06-28-2024 13:40-0400Body mass index (BMI) [Ratio]31.1 kg/w6JpaecyszBayhealth Hospital, [facility] MARKETING SERVICES COORDINATOR.SEO SPECIALIST Work Phone: [phone]06-28-2024 13:40-0400Body temperature 97.3 [degF][facility] MARKETING SERVICES COORDINATOR.SEO SPECIALIST Work Phone: [phone]06-28-2024 13:40-0400Body ovqpqt959.01 kgBayhealth Hospital, [facility] MARKETING SERVICES COORDINATOR.SEO SPECIALIST Work Phone: [phone]06-28-2024 13:40-0400Diastolic blood mtuffadf94 mm[Hg][facility] MARKETING SERVICES COORDINATOR.SEO SPECIALIST Work Phone: [phone]06-28-2024 13:40-0400Heart rate68 /min [facility] MARKETING SERVICES COORDINATOR.SEO SPECIALIST Work Phone: [phone]06-28-2024 13:40-0400Respiratory rate 16 /minBay[facility], [facility] MARKETING SERVICES COORDINATOR.SEO SPECIALIST Work Phone: [phone]06-28-2024 13:40-0511FxA3% (BldA) [Mass fraction]99 %[facility] MARKETING SERVICES COORDINATOR.SEO SPECIALIST Work Phone: [phone]06-28-2024 13:40-0400Systolic blood ygmkdlrs176 mm[Hg][facility] MARKETING SERVICES COORDINATOR.SEO SPECIALIST Work Phone: [phone]06-18-2024 13:21-0400Body glreum828.9 cmBay[facility] MARKETING SERVICES COORDINATOR.SEO SPECIALIST Work Phone: [phone]06-18-2024 13:21-0400Body mass index (BMI) [Ratio]30.61 kg/c6LyhfiwemBayhealth Hospital, [facility] MARKETING SERVICES COORDINATOR.SEO SPECIALIST Work Phone: [phone]06-18-2024 13:21-0400Body temperature 97.81 [degF][facility] MARKETING SERVICES COORDINATOR.SEO SPECIALIST Work Phone: [phone]06-18-2024 13:21-0400Body judwvj071.38 kgBayhealth [facility], [facility] MARKETING SERVICES COORDINATOR.SEO SPECIALIST Work Phone: [phone]06-18-2024 13:21-0400Diastolic blood scpobmmx99 mm[Hg][facility] MARKETING SERVICES COORDINATOR.SEO SPECIALIST Work Phone: [phone]06-18-2024 13:21-0400Heart rate74 /min [facility] MARKETING SERVICES COORDINATOR.SEO SPECIALIST Work Phone: [phone]06-18-2024 13:21-0400Respiratory rate 14 /minBay[facility] MARKETING SERVICES COORDINATOR.SEO SPECIALIST Work Phone: [phone]06-18-2024 13:21-8615FdO8% (BldA) [Mass fraction]98 %[facility] MARKETING SERVICES COORDINATOR.SEO SPECIALIST Work Phone: [phone]06-18-2024 13:21-0400Systolic blood cllqzyhz059 mm[Hg][facility] MARKETING SERVICES COORDINATOR.SEO SPECIALIST Work Phone: [phone]06-14-2024 14:28-0400Body dhupew503.9 cmBayhealth [facility], [facility] MARKETING SERVICES COORDINATOR.SEO SPECIALIST Work Phone: [facility]06-14-2024 14:28-0400Body mass index (BMI) [Ratio]31.57 kg/x9ElfjglltBayhealth Hospital, [facility] MARKETING SERVICES COORDINATOR.SEO SPECIALIST Work Phone: [phone]06-14-2024 14:28-0400Body temperature 97.3 [degF][facility] MARKETING SERVICES COORDINATOR.SEO SPECIALIST Work Phone: [phone]06-14-2024 14:28-0400Body aaoens253.6 kgBayhealth Hospital, [facility] MARKETING SERVICES COORDINATOR.SEO SPECIALIST Work Phone: [facility]06-14-2024 14:28-0400Diastolic blood vlgioltc77 mm[Hg][facility] MARKETING SERVICES COORDINATOR.SEO SPECIALIST Work Phone: [phone]06-14-2024 14:28-0400Heart rate71 /min [facility] MARKETING SERVICES COORDINATOR.SEO SPECIALIST Work Phone: [phone]06-14-2024 14:28-0400Respiratory rate 14 /minBay[facility], [facility] MARKETING SERVICES COORDINATOR.SEO SPECIALIST Work Phone: [phone]06-14-2024 14:28-8761GsD3% (BldA) [Mass fraction]98 %[facility] MARKETING SERVICES COORDINATOR.SEO SPECIALIST Work Phone: [phone]06-14-2024 14:28-0400Systolic blood sdotkrbd647 mm[Hg][facility] MARKETING SERVICES COORDINATOR.SEO SPECIALIST Work Phone: [facility]05-28-2024 15:33-0400Body temperature 97 [degF]Roseann Rosario MD Work Phone: [phone] Ridge Medical CenterPmxjzj38-49-4053 15:33-0400Diastolic blood ykmrslmv59 mm[Hg]Roseann Rosario MD Work Phone: [phone]()[phone] Ridge Medical CenterGndzce86-71-6322 15:33-0400Heart rate92 /min Roseann Rosario MD Work Phone: [phone]()[phone] Ridge Medical CenterIxndrr34-61-1897 15:33-0400Respiratory rate 24 /minRoseann Rosario MD Work Phone: [phone]()[phone] Ridge Medical CenterOdxlqw93-25-5550 15:33-4510YmU9% (BldA) [Mass fraction]97 %Roseann Rosario MD Work Phone: [phone]()[phone] Ridge Medical CenterQvgkhz66-52-6481 15:33-0400Systolic blood ujlbyhzs703 mm[Hg]Roseann Rosario MD Work Phone: [phone]()[phone] Ridge Medical CenterZojeuj59-49-8699 15:03-0400Body ikmrwn698.9 Breonna Rosario MD Work Phone: [phone]()[phone] Ridge Medical CenterNoqcyp75-87-4972 15:03-0400Body mass index (BMI) [Ratio]29.84 kg/i6RexaslaRoseann Rosario MD Work Phone: [phone]()[phone] Ridge Medical CenterYggwes15-15-8824 15:03-0400Body rzwwhi95.79 kgRoseann Rosario MD Work Phone: [phone]()[phone] [place], [place] [address]5-28-2024 13:22Body .9 Ronald Flood MD, PhD Work Phone: [phone]05-28-2024 13:22-0400Body mass index (BMI) [Ratio]29.84 kg/s3OdwocbRonaldo Flood MD, PhD Work Phone: [phone]05-28-2024 13:22040Body temperature 97.3 [degF]Ronaldo Flood MD, PhD Work Phone: [phone]05-28-2024 13:040Body .79 kgRonaldo Flood MD, PhD Work Phone: [phone]05-28-2024 13:22040Diastolic blood mm[Hg]Ronaldo Flood MD, PhD Work Phone: [phone]05-28-2024 13:22040Heart rate91 /min Ronaldo Flood MD, PhD Work Phone: [phone]05-28-2024 13:040Respiratory rate 14 /minSezio Flood MD, PhD Work Phone: [phone]05-28-2024 13:224920TgE5% (BldA) [Mass fraction]94 %Ronaldo Flood MD, PhD Work Phone: [phone]05-28-2024 13:22Systolic blood nkinebcb718 mm[Hg]Ronaldo Flood MD, PhD Work Phone: [phone]05-09-2024 12:040Body .9 Ronald Flood MD, PhD Work Phone: [phone]05-09-2024 12:01-0400Body mass index (BMI) [Ratio]30.24 kg/r8ZcebjvRonaldo Flood MD, PhD Work Phone: [phone]05-09-2024 12:040Body temperature 97.39 [degF]Ronaldo Flood MD, PhD Work Phone: [facility]05-09-2024 12:01-0400Body fsrund747.15 kgRonaldo Flood MD, PhD Work Phone: [phone]05-09-2024 12:01-0400Diastolic blood jwatujmf13 mm[Hg]Ronaldo Flood MD, PhD Work Phone: [phone]05-09-2024 12:01-0400Heart rate82 /min Ronaldo Flood MD, PhD Work Phone: [phone]05-09-2024 12:01-0400Respiratory rate 14 /minSezio Flood MD, PhD Work Phone: [phone]05-09-2024 12:01-7585JoB7% (BldA) [Mass fraction]98 %Ronaldo Flood MD, PhD Work Phone: [phone]05-09-2024 12:01-0400Systolic blood vcxicttx468 mm[Hg]Ronaldo Flood MD, PhD Work Phone: [facility]02-27-2024 13:47-0500Body jojpat727.88 cmDO Sintia Clemente Work Phone: [facility]02-27-2024 13:47-0500 Body mass index (BMI) [Ratio]32 kg/m2DO Sintiacandida Clemente Work Phone: [phone] [place], [place] 3892502-27-2024 13:47-0500 Body pickxp648.04 kgDO Sintiacandida Clemente Work Phone: [facility]02-27-2024 13:47-0500 Diastolic blood zccioogf34 mm[Hg]DO Sintia Clemente Work Phone: [facility]02-27-2024 13:47-0500 Heart rate88 /minDO Sintia Mcarthur Work Phone: [facility]02-27-2024 13:47-0500 Respiratory rate12 /minDO Sintia Clemente Work Phone: [facility]02-27-2024 13:47-0500 Systolic blood igdsuddu350 mm[Hg]DO Sintia Clemente Work Phone: [facility]02-06-2024 13:30-0500 Body lsuomd178.88 cmBenjamin Ball Other [place] [employer] Other 02-06-2024 13:30-0500Body mass index (BMI) [Ratio] 31.16 kg/f8Nkwyqqjy Ball Other [employer] Other 02-06-2024 13:30-0500Body .24 kgBenjamin Ball Other [place] [employer] Other 02-06-2024 13:30-0500Diastolic blood mm[Hg] Yuli Ball Other [place] [employer] Other 02-06-2024 13:30-0500Respiratory rate12 /minBenjamin Ball Other [place] [employer] Other 02-06-2024 13:30-0500Systolic blood vjtqdocy169 mm[Hg] Yuli Ball Other [employer] Other 11-06-2023 10:00-0500Body yfdtaq410.88 cmBenjamin Ball Other [employer] Other 11-06-2023 10:00-0500Body mass index (BMI) [Ratio] 30.78 kg/k7Bkwwyorz Ball Other [employer] Other 11-06-2023 10:00-0500Body waqkzp824.97 kgBenjamin Ball Other [facility] [employer] Other 11-06-2023 10:00-0500Diastolic blood fwyhdbck105 mm[Hg]Yuli [facility] [employer] Other 11-06-2023 10:00-0500Respiratory rate12 /minBenjadarwin Ball Other [place] [employer] Other 11-06-2023 10:00-0500Systolic blood wzqsxvyn410 mm[Hg] Yuli [facility] [employer] Other 08-28-2023 15:16-0400Body cwopbe468.9 cmMargei IvanDistill DO Work Phone: 1([phone]kwsji47-21-4874 15:16-0400Body mass index (BMI) [Ratio]29.84 kg/b5LnobpMargie Edouard DO Work Phone: 1(515) [phone]klypp76-06-2050 15:16-0400Body .79 kg Margie Edouard DO Work Phone: 1(596) [phone]wvoDiocka94-05-2611 09:46-0400Body vdwola075.9 cm Nena Huff DO Work Phone: 1(870) [phone]khfna52-67-3350 09:46-0400Body mass index (BMI) [Ratio]29.84 kg/l2KyrnmNena Huff DO Work Phone: 1(199) [phone]ofzpe65-34-5800 09:46-0400Body mgudqf75.79 kg Nena Huff DO Work Phone: [phone]zsdvc64-16-8931 10:00-0400Body .88 cm Yuli Ball Other [facility] [employer] Other 07-27-2023 10:00-0400Body mass index (BMI) [Ratio] 30.11 kg/n3Wpxldupy Ball Other [facility] [employer] Other 07-27-2023 10:00-0400Body zncugn487.7 kgBenjamin Ball Other [facility] [employer] Other 07-27-2023 10:00-0400Diastolic blood kfxsautc41 mm[Hg] Yuli Ball Other [facility] [employer] Other 07-27-2023 10:00-0400Respiratory rate12 /minBenjamin Ball Other [facility] [employer] Other 07-27-2023 10:00-0400Systolic blood diwwcrhr682 mm[Hg] Yuli Ball Other [place] [employer] Other 06-05-2023 13:38-0400Body hwyhoq452.9 cmBrrudi TrustedPlacesginsky DO Work Phone: 1([phone]wlqag09-27-6222 13:38-0400Body mass index (BMI) [Ratio]30.24 kg/l0Nqavj Steginsky DO Work Phone: 1(174) [phone]cspkv42-21-3586 13:38-0400Body kmqxyz017.15 kg Margie Edouard DO Work Phone: 1(747) [phone]ahcfr80-22-9101 13:20-0400Body dzozne019.9 cm Grecia Faith PA-C Work Phone: 1(704) [phone]isrnc99-74-9179 13:20-0400Body mass index (BMI) [Ratio]30.24 kg/a7KltdeGrecia Munsona PA-C Work Phone: 1(353) [phone]ykwbr82-36-0649 13:20-0400Body .15 kg Grecia Munsona PA-C Work Phone: 1(648) [phone]gBsfbtn07-27-4989 13:16-0400Body ugarqm282.9 cm Margie Edouard [employer] Work Phone: 1(332) [phone]seuqt07-35-9302 13:16-0400Body mass index (BMI) [Ratio]30.24 kg/p6XqoprMargie Edouard [employer] Work Phone: 1(107) [phone]zunhk97-97-9726 13:16-0400Body chxmyi987.15 kg Margie Edouard [employer] Work Phone: 1(132) [phone]JxseUznejw81-91-4068 14:44-0500BMI (Body Mass Index) 30.24 kg/q4Nnyxj RukxhjRloiKsexqj03-99-6683 14:44-0500Body .15 kgNena KzumvbVyssRznvyf23-71-4961 14:44-0982Jdnsjp218.9 [facility] 07-01-2019 09:59-0500BMI (Body Mass Index)30.79 kg/y0DvwwoSt. Mary[facility] 07-01-2019 09:59-0500Body iugvlu548.97 kgSt[address] Mary's Medical CenterCwbaxmJpzyVflcwa53-45-4113 09:59-0449Ecwilg980.9 liyahSt. Mary's Medical CenterTbaxacAxqfLxpkev14-56-3828 11:30-0500BMI (Body Mass Index)30.79 kg/m2Ray [facility] Work Phone: 1(286) 716-437402-13-2018 11:30-8859Xlrngj335.9 [facility] Work Phone: 1(170) 747-872502-13-2018 11:30-8343Bdyqmw072.[address] [facility] Work Phone: 1(832) 615-210508-15-2017 12:07-0400BMI (Body Mass Index)29.97 kg/m2 [facility] Phone: 1(684) 757-686408-15-2017 12:07-4600Zpwzme947[address] [facility] Work Phone: 1(439) 951-432308-15-2017 12:07-7621Tpxcqu319.[address] [facility] Work Phone: Encounters Encounter DateEncounter [facility] ProviderFacilityStart: 04-27-2025 End: 61-37-8089Znpdaq flowsheetSteven A Rusher DPM Work Phone: noMS [facility] PodiatryStart: 04-27-2025 End: 15-90-1911Mbqkqk flowsheetSteven A Rusher DPM Work Phone: noGeneral acute hospital PodiatryStart: 04-27-2025 End: 32-13-0678ofprmagvrdJQJRNA A RUSHERNot AvailableStart: 04-27-2025 End: 96-64-0769Ijblix outpatient visit 15 minutesSteven A Rusher DPM Work Phone: noGeneral acute hospital PodiatryComment on above: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, stage 2 (CMS-HCC) (Primary Dx); Cellulitis of left foot; Pain in toe of left foot; Difficulty walkingStart: 04-19-2025 End: 17-49-4360nsaixtjejnYmwrrmwc Ball DO Work Phone: -[facility]art: 04-19-2025 End: 88-95-4212Lwufuva encounter procedureBemariedarwin Mariscal DO-[facility] Work Phone: Start: 04-14-2025 End: 50-46-0119Gszzzrq encounter procedureSteven A Rusher DPM Work Phone: noGeneral acute hospital PodiatryComment on above:Dermatophytosis of nail (Primary Dx); Dystrophic nail; Pain around toenail, right foot; Pain around toenail, left footStart: 04-14-2025 End: 30-59-9194twjwzorzchORUAJR A RUSHERNot AvailableStart: 04-14-2025 End: 86-20-0493Zxytgq flowsheetSteven A Rusher DPM Work Phone: noMS [facility] PodiatryStart: 04-14-2025 End: 80-72-4835Wgyuyl flowsheetSteven A Rusher DPM Work Phone: NOMN [place] PodiatryStart: 26-45-9446Prj-patient / Non-visitBenjoni Mariscal DO-[facility] Work Phone: Start: 04-09-2025 End: 91-55-7376wzmeaalrnbGmdbabzi Ball DO Work Phone: -[facility]pg [facility] Alliancetart: 04-09-2025 End: 78-06-3689Lyfmyct encounter procedureBeulysses Mariscal DO-[facility] Work Phone: Start: 28-82-5003Iam-patient / Non-visitCatkofi Berman INCINERATOR OPERATOR-[facility] Work Phone: Start: 86-43-8311Ern-patient / Non-visitPablito Hoffman MD-[facility] Work Phone: Start: 07-45-4005Pgj-patient / Non-visitPablito Hoffman MD-[facility] Work Phone: Start: 11-07-0354Wzm-patient / Non-visitBijal Najera MD-[facility] Work Phone: Start: 48-79-7044Ior-patient / Non-visitBijal Najera MD-[facility] Work Phone: Start: 02-09-2995Qsg-patient / Non-visitBijal Najera MD-[facility] Work Phone: Start: 82-52-4672Agb-patient / Non-visitYehuda Pemberton DO-[facility] Work Phone: Start: 66-63-4963ejbjxorwcvSBKXHEU MAJUMDAR [facility]: 03-26-2025 End: 84-25-8130vzpjyoekjgUQEULKKECI ISAKOVFacility:[facility] HospitalStart: 03-25-2025 End: 38-16-5863Zrnlfwgwen Chowdary DP Work Phone: NOMS [place] PodiatryStart: 03-25-2025 End: 81-33-3024Rchdcg flowsheetSteven A Rusher DPM Work Phone: [facility] [place] PodiatryStart: 03-25-2025 End: 35-39-6534lanhjwcbxtPBXQNI A RUSHERNot AvailableStart: 03-25-2025 End: 94-78-3349Tclpho outpatient visit 15 minutesSteven A Rusher DPM Work Phone: JAYME [facility] PodiatryComment on above: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, stage 2 (CMS-HCC) (Primary Dx); Cellulitis of left foot; Pain in toe of left foot; Difficulty walkingStart: 03-24-2025 End: 52-76-5732etnbrcrqhmKHLDQN NASEERFacility:[facility] Hospitaltart: 03-24-2025 End: 37-93-7857uxosjpxwqrLSLTMK BEVERIDGEFacility:[facility] Start: 03-17-2025 End: 49-85-1755Yuimad flowsheetSteven A Rusher DPM Work Phone: JAYME [facility] PodiatryStart: 03-17-2025 End: 75-55-4581Hszclp flowsheetSteven A Rusher DPM Work Phone: NOMS [facility] PodiatryStart: 03-17-2025 End: 72-34-4159Xtqgdg outpatient visit 15 minutesSteven A Rusher DPM Work Phone: JAYME [facility] PodiatryComment on above: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, stage 2 (CMS-HCC) (Primary Dx); Cellulitis of left foot; Pain in toe of left foot; Difficulty walkingStart: 03-17-2025 End: 06-50-9876hpcpbumwciNNNBEX A RUSHERNot AvailableStart: 03-16-2025 End: 40-57-5778vfblcaiuxcDIPOUC NASEERFacility:[facility] Hospitaltart: 03-12-2025 End: 38-65-9928Utfakj flowsheetSteven A Rusher DPM Work Phone: NOGeneral acute hospital PodiatryStart: 03-12-2025 End: 30-65-8157Mymgnt flowsheetSteven A Rusher DPM Work Phone: NOGeneral acute hospital PodiatryStart: 03-12-2025 End: 94-06-4644bcuivqniusELMYFU A RUSHERNot AvailableStart: 03-12-2025 End: 47-86-5719Nmgshv outpatient new 30 minutesSteven A Rusher DPM Work Phone: noGeneral acute hospital PodiatryComment on above: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, stage 2 (CMS-HCC) (Primary Dx); Cellulitis of left foot; Pain in toe of left foot; Difficulty walkingStart: 03-12-2025 End: 97-35-3016ldjgdidhkhXKZJFY A RUSHERNot AvailableStart: 03-05-2025 End: 32-69-9485ghvtbuqlboTDEWXGKSTU ISAKOVFacility:[facility] Start: 02-25-2025 End: 64-61-5398Kdddnzq encounter procedureZabrina Suarez MD Work Phone: [facility] CenterComment on above:FLOYD (acute kidney injury) (Primary Dx); Screening for genitourinary condition; Elevated serum creatinine; Decreased GFR; Generalized edema; Pleural effusion, not elsewhere classifiedStart: 02-25-2025 End: 67-72-2737pbzrkdifoePcgemuAsia Suarez MD Work Phone: [facility] CenterStart: 15-40-3627ycqnyzjfep DONNA OLIVERFacility:[facility] Hospitaltart: 02-19-2025 End: 48-84-5935Grijgkopiy hospital visit by Geoff Jung A21 5 Work Phone: RadiologyComment on above:Other ascites [R18.8]Start: 02-17-2025 End: 70-13-8548fsivrzrspjXrhscMasoud Hooper APRN.SEO SPECIALIST Work Phone: GastroenterologyComment on above:Willie Raymundo. 1950tart: 02-11-2025 End: 77-89-4962tmdfubbeynTFZZPZKDWB ISAKOVFacility:[facility] Start: 02-02-2025 End: 48-60-8264ahtvfeztqwZDR FRED BARRAGANREGGIEFacility:[facility] Start: 01-26-2025 End: 68-04-7976Jalqhcn encounter procedureJose Antonio Hopper MD Work Phone: Vjuan francisco Weaverv MDComment on above:Metabolic encephalopathy (Primary Dx); Stage 3a chronic kidney disease (HCC); Primary hypertension; Lymphocytic colitis; Generalized edema; Orthostatic hypotension; Cramp and spasm; Urge incontinenceStart: 01-25-2025 End: 57-02-7475ekztaxaqvtXBGPQJYQIS ISAKOVFacility:[facility] Start: 01-19-2025 End: 66-15-9658BaiqvwKdbtpybqlr Isakov MD Work Phone: Vjuan francisco Ispatiencev MDStart: 01-12-2025 End: 64-04-7832NecbdyYnddcilzyd Isakov MD Work Phone: Vjuan francisco Ispatiencev MDComment on above:Refill Request Start: 01-11-2025 End: 64-38-4592Nervxtv encounter procedureTriston Riggs MD Work Phone: Pulmonary MedicineComment on above:Pleural effusion (Primary Dx); Pleuritis; Pericardial effusion (noninflammatory) (HCC); History of pericarditis; Lymphocytic colitisStart: 01-11-2025 End: 07-71-5751wpqzjwbgxmXJUEP GILLESPIEFacility:[facility] Hospitaltart: 01-08-2025 End: 50-03-7199Dafqkrrbvt hospital visit by physicianGeneral Keron Ahumada Mc Work Phone: RadiologyComment on above:Pleural effusion, not elsewhere classified [J90]Start: 01-08-2025 End: 27-63-3471bspeowuhliBJKGN GILLESPIEFacility:[facility] Hospitaltart: 12-22-2024 End: 92-44-1849Qmtjwvkpektj consultation with Wolfgang Hooper APRN.CNP Work Phone: GastroenterologyStart: 12-22-2024 End: 87-93-3084fhjhnbqybaLnuydAurora Hooper APRN.CNP Work Phone: GastroenterologyComment on above:Elevated serum creatinine (Primary Dx); Elevated alkaline phosphatase levelStart: 12-16-2024 End: 08-00-5834qolrawyigwNDLFMCN SHARMAFacility:[facility] Hospitaltart: 12-15-2024 End: 22-65-7359Jeemyaf encounter procedureJose Antonio oHpper MD Work Phone: Vjuan francisco Hopper MDComment on above:Mixed connective tissue disease (HCC) (Primary Dx); Urge incontinence; Hypokalemia; Recurrent pleural effusion on right; Muscle cramps; Hiatal herniaStart: 11-25-2024 End: 04-83-1046IfyjqiZvcdqpdnnc Isakov MD Work Phone: Vjuan francisco Hopper MDComment on above:Refill Request Start: 11-24-2024 End: 84-65-7526Uevoxh-up encounterZac Mendiola MD Work Phone: CardiologyStart: 11-23-2024 End: 09-96-9480Enrriypyg encounterSezio Flood MD, PhD Work Phone: oracic ClinicComment on above:Received Outside Medical RecordsStart: 11-23-2024 End: 40-40-4865Pnejapb encounter Donya Riggs MD Work Phone: Pulmonary MedicineComment on above:Pleural effusion (Primary Dx); Pleuritis; Pericardial effusion (noninflammatory) (HCC); Lymphocytic colitis; Other ascitesStart: 11-23-2024 End: 27-70-8395Tmhsdtfisz hospital visit by physicianXr Chest Main M34Kimoolilj Comment on above:Pleural effusion, not elsewhere classified [J90]Hepatomegaly [R16.0]Start: 11-23-2024 End: 85-19-1017gsfhsvjqipKNLLGXK PROVIDERFacility:[facility]ertart: 11-20-2024 End: 02-27-0887Bfrvdc outpatient new 45 minutesZac Mendiola MD Work Phone: CardiologyComment on above:Extremity cyanosis (Primary Dx)Start: 11-20-2024 End: 13-73-2736krqfyufvuwRLPDSLD SHARMAFacility:[facility] Hospitaltart: 11-19-2024 End: 05-02-0223ywzinklnurYIRUN GILLESPIEFacility:[facility] Hospitaltart: 11-19-2024 End: 53-72-7218Thagvmg encounter procedureTriston Riggs MD Work Phone: Pulmonary MedicineComment on above:Pleural effusion (Primary Dx)Start: 11-19-2024 End: 88-25-5389wlgffvljvsRNJAC GILLESPIEFacility:[facility] Hospitaltart: 11-19-2024 End: 36-67-8846Dytqvofumz hospital visit by physicianXr Chest Main Vf0Afogjxwfu Comment on above:Pleural effusion [J90]Start: 11-17-2024 End: 75-76-5347Noanjojox encounterMya (Pss) DozierPulmonary MedicineComment on above:Patient QuestionStart: 11-17-2024 End: 12-94-9080ctvkjyhvnfGLMCENHDMF ISAKOVFacility:[facility] Start: 11-13-2024 End: 18-35-3322Xskocmr encounter procedureJose Antonio Hopper MD Work Phone: Jose Antonio Hopper MDComment on above:Anasarca (Primary Dx); Recurrent pleural effusion on right; Hepatomegaly; Hiatal hernia; Chronic gastritis without bleeding, unspecified gastritis type; HypomagnesemiaStart: 11-12-2024 End: 15-36-7726Vcsdhqolj department patient visitYULI MARISCAL Facility:[facility]tart: 11-05-2024 End: 84-10-7422gdbapozornAAFQJDBY E BALLFacility:[facility] Hospitaltart: 55-71-5583jmynbbuwgtREVCJTCV E BALLFacility:[facility]tart: 11-03-2024 End: 62-84-3039Zorbyq-up encounterTiffany Malachi MARKETING SERVICES COORDINATOR.SEO SPECIALIST Work Phone: GastroenterologyStart: 10-31-2024 End: 32-69-0714Jvnvjp-up encounterTiffany Malachi MARKETING SERVICES COORDINATOR.SEO SPECIALIST Work Phone: GaroenterologyStart: 10-27-2024 End: 03-06-1483Xvwcxv OnlyVilma Guthriest. [facility] MAPulmonary MedicineComment on above: Pleural effusion (Primary Dx)Start: 10-23-2024 End: 94-86-5529Tvmxsucnz encounterSezio Flood MD, PhD Work Phone: oracic ClinicComment on above:Received Outside Medical RecordsStart: 10-23-2024 End: 28-51-4299Goqmczizry hospital visit by physicianUlt[facility] Work Phone: [facility] Rad[facility] UltrasoundComment on above: Elevated alkaline phosphatase level [R74.8]Start: 10-23-2024 End: 62-32-3353pxxnjinlonJULUQJEA E BALLFacility:[facility] Hospitaltart: 10-20-2024 End: 01-51-0149Nnujyb-up encounterTiffany Malachi MARKETING SERVICES COORDINATOR.SEO SPECIALIST Work Phone: VastroenterologyStart: 10-19-2024 End: 40-99-2370JnnwpeBpbibgnboq Isakov MD Work Phone: Jose Antonio Hopper MDComment on above:Refill Request Start: 10-15-2024 End: 07-91-4360Ntwxxc-up encounterTiffany Malachi MARKETING SERVICES COORDINATOR.SEO SPECIALIST Work Phone: GastroenterologyStart: 10-15-2024 End: 06-05-2115Qxxmxdx encounter procedureZabrina Suarez MD Work Phone: [facility] CenterComment on above:FLOYD (acute kidney injury) (Primary Dx); Elevated BUN; Elevated serum creatinine; Decreased GFR; Lymphocytic colitis; Pleural effusion, not elsewhere classified; Generalized edemaStart: 10-15-2024 End: 41-15-0017ehymciqtroKwpwlh J Augustine MD Work Phone: [facility] CenterComment on above:Serositis (HCC) (Primary Dx)Start: 10-14-2024 End: 02-55-0902poaxkfaxrwLDAZQKU JARMANFacility:[facility] Hospitaltart: 10-14-2024 End: 33-67-8853ifufbeebkpWWECMBMX E BALLFacility:[facility] Hospitaltart: 10-14-2024 End: 04-13-1869Lzaidpo encounter procedureTifgriffin Ly APRN.CNP Work Phone: GastroenterologyComment on above:Elevated BUN (Primary Dx); Elevated serum creatinine; Decreased GFR; Elevated alkaline phosphatase levelPleural effusion (Primary Dx)Start: 10-14-2024 End: 20-86-6811huadaajiaeNDYWEGVZA CLEMENTFacility:[facility] Start: 59-83-5915myppxythtcACDTBQY MAJUMDARFacility:[facility] Start: 10-13-2024 End: 90-65-0283Klvivjesjl hospital visit by physicianIgorral Keron Ahumada Mc Work Phone: RadiologyComment on above:Cough, unspecified type [R05.9]Start: 10-02-2024 End: 76-04-0379Dgcis abstractGabby Contreras PA-C Work Phone: pulmonary MedicineStart: 10-02-2024 End: 36-80-5607Trpgotucq encounterHui Ivey HUCAdmittingComment on above: Appointment ConfirmationStart: 10-02-2024 End: 54-47-3462cgnwpxhygySvtqov Naseer MD Work Phone: GastroenterologyComment on above:Willie Kimberly 1950 Willie Kimberly 4-29-8694Wyoid: 09-25-2024 End: 40-15-0288tzeewopydrOABVKB HELFANDFacility:[facility] HospitalStart: 09-25-2024 End: 22-93-9039Dylysjhfcm hospital visit by Luther Dennis MD Work Phone: GastroenterologyComment on above:Esophageal dysphagia [R13.19]Start: 09-23-2024 End: 98-50-0993Ewtsinhfg encounterSezio Flood MD, PhD Work Phone: Thoracic ClinicComment on above:Received Outside Medical RecordsStart: 09-18-2024 End: 96-09-1623xmuvhkoeciPnoql Madsen RNGastroenterologyStart: 09-14-2024 End: 84-48-3905Brlzurzmu encounterMya (Pss) DozierPulmonary MedicineComment on above:Patient UpdateStart: 09-11-2024 End: 00-35-8136rwuqehepnzTWTDAZDDPX ISAKOVFacility:[facility] Start: 09-11-2024 End: 37-95-6302dyecaipwhsRoamlqvxvBarnesville Hospital Work Phone: Start: 09-11-2024 End: 13-68-8886Uslhffr encounter procedureThe [facility] Work Phone: Start: 09-08-2024 End: 07-66-1012jhqueswgdaEJYTVHI ASHTONFacility:[facility] Hospitaltart: 09-04-2024 End: 55-45-3995Fwswakxlr encounterDevanna Ortiz CTHOSP MAIN N726Zpdvj: 09-04-2024 End: 14-77-5159Xmraccl encounter procedureJose Antonio Hopper MD Work Phone: Jose Antonio Hopper MDComment on above:Recurrent pleural effusion on right (Primary Dx); Hypokalemia; Lymphocytic colitis; Anemia, unspecified type; Chronic insomniaStart: 09-04-2024 End: 37-35-9662yutkqhehesTYTNMQ CICENIAFacility:[facility] Hospitaltart: 09-03-2024 End: 67-64-8993cpajockvsnAUZUTGSQIJ ISAKOVFacility:[facility] Start: 22-24-7886Zte-patient / Non-visitC[facility] Work Phone: Start: 09-02-2024 End: 83-31-8739Zatjdhyzg encounterCarol Lior MARREROSEO SPECIALIST Work Phone: admittingComment on above:Post Dc Program Call - Needs AttnAppointment (Thoracentesis)Start: 20-04-4535Tdn-patient / Non-visit [facility] Work Phone: Start: 09-01-2024 End: 98-48-8947Lwmvou Jesus Hopper MD Work Phone: Vjuan francisco Hopper MDComment on above:Recurrent pleural effusion on right (Primary Dx)Start: 77-58-1378Xsx-patient / Non-visitC[facility] Work Phone: Start: 49-96-7047Iol-patient / Non-visitC[facility] Work Phone: Start: 53-13-8323Tdu-patient / Non-visitC[facility] Work Phone: Start: 08-28-2024 End: 05-20-9407Zdxoxe OnlyJose Antonio Hopper MD Work Phone: Vjuan francisco Hopper MDComment on above:Recurrent pleural effusion on right (Primary Dx)Start: 08-27-2024 End: 42-11-6156Jrjrwq flowsLesly Bynum MD Work Phone: NOGL SWS DERMStart: 08-27-2024 End: 04-67-3197Avxtvzgwen Bynum MD Work Phone: noms [facility] DERMStart: 08-27-2024 End: 02-99-4082Amgcut outpatient visit 15 minutesEmruel Bynum MD Work Phone: noms SWS DERMComment on above:Seborrheic keratosis (Primary Dx); Actinic keratosis; Stasis dermatitis of both legs; LentiginesStart: 08-27-2024 End: 55-75-5290yfeymivsvvFGSTV A PETITTINot AvailableStart: 08-26-2024 End: 39-12-2176Yeojgh-up encounterMalargelia Terrell MD Work Phone: GastroenterologyStart: 44-70-8217Vvs-patient / Non-visitC[facility] GroupWestern [facility] Professional [facility] Work Phone: Start: 08-24-2024 End: 90-96-8382jsxtetgvraWNSWZNIJXV ISAKOVFacility:[facility] Start: 08-24-2024 End: 45-23-6391Sishpy outpatient visit 25 minutesSue Terrell MD Work Phone: GastroenterologyComment on above:Lymphocytic colitis (Primary Dx); Esophageal dysphagiaStart: 08-24-2024 End: 23-31-5212azqffprfrbIQHXFL NASEERFacility:[facility] HospitalStart: 08-21-2024 End: 74-84-1193Qrlpytkjk encounterCarol Lior KELLY.SEO SPECIALIST Work Phone: cardiologyComment on above:Post Dc Program Call - Needs AttnRefill RequestStart: 08-18-2024 End: 89-06-9177xlbaemjwdgIULSP WEGASFacility:[facility] HospitalStart: 08-18-2024 End: 11-30-0338Xemvqsb encounter procedureCarol Lior MARKETING SERVICES COORDINATOR.SEO SPECIALIST Work Phone: Thoracic ClinicComment on above:Pleural effusion (Primary Dx)Start: 14-48-3266Tdj-patient / Non-visitFirelands Physician GroupFirelands Regional [facility] Work Phone: Start: 08-13-2024 End: 85-58-2212melqdinmxzAKNDT GILLESPIEFacility:[facility] Hospitaltart: 08-13-2024 End: 28-92-0682Pjxjljffol hospital visit by physicianXr [facility]Rad[facility] Comment on above:Pleural effusion [J90]Start: 08-12-2024 End: 70-10-7502ilkonntfwkBNZVYNME D ZAHLERNot AvailableStart: 08-12-2024 End: 87-55-8184Ejmfrd flowsheetAnne-Marie Bajwa DO Work Phone: noms NB OPHTStart: 08-12-2024 End: 69-33-1330Bavrbq flowsheetAnne-Marie Bajwa DO Work Phone: noms NB OPHTStart: 08-12-2024 End: 40-64-5250Mdtgifmms encounterSdarrion Contreras PA-C Work Phone: Pulmonary MedicineComment on above:Patient Update Patient QuestionPatient RequestStart: 08-10-2024 End: 25-68-4079Hqhybhock encounterMya (Pss) DozierPulmonary MedicineComment on above:Patient QuestionStart: 08-04-2024 End: 18-46-1389Byywwfsjm encounterSezio Flood MD, PhD Work Phone: Thoracic ClinicComment on above:Received Outside Medical RecordsStart: 08-03-2024 End: 95-27-0156Xjtdurmbh encounterMya (Pss) DozierPulmonary MedicineComment on above:Patient UpdateStart: 07-29-2024 End: 39-66-7111Aunyfr OnlyJose Antonio Hopper MD Work Phone: Jose Antonio Hopper MDComment on above:Pleural effusion (Primary Dx)Start: 37-95-5402Cnt-patient / Non-visitFirelandgrecia Physician GroupNaval Hospital [facility] Professional Mo Work Phone: Start: 07-24-2024 End: 91-31-0293Tfepak OnlyJose Antonio Hopper MD Work Phone: Jose Antonio Hopper MDComment on above:Fatigue, unspecified type (Primary Dx)Start: 07-21-2024 End: 25-06-4636Efdqgiy encounter Kelly Hopper MD Work Phone: Jose Antonio Hopper MDComment on above:Pleural effusion (Primary Dx); Muscle cramps; Anasarca; Hypomagnesemia; Lymphocytic colitisStart: 49-90-2222Ucr-patient / Non-visitC[facility] Physician GroupWestern [facility] Hospital Professional [facility] Work Phone: Start: 07-20-2024 End: 49-07-9295dxobwmsynqAQZBG GILLESPIEFacility:[facility] Hospitaltart: 07-20-2024 End: 95-84-4379Jyohmhv encounter procedureTriston Riggs MD Work Phone: Pulmonary MedicineComment on above:Pleural effusion (Primary Dx); Pleuritis; Pericardial effusion (noninflammatory); Chronic coughStart: 07-20-2024 End: 98-60-6962dqqfxjuetkATIAQARCM CLEMENTFacility:[facility] Start: 07-20-2024 End: 20-96-3169Hcgjqwokix hospital visit by physicianXr Chest Main Kl1Tmbqatxwg Comment on above:Pleural effusion [J90]Start: 53-11-8719ibmnayuaryGPCY DANELLE Facility:[facility]tart: 07-17-2024 End: 49-95-2036Sjzyl abstractGabby Contreras PA-C Work Phone: Pulmonary MedicineStart: 07-16-2024 End: 50-30-9649Hhlpzgpzr encounterTriston Riggs MD Work Phone: Pulmonary MedicineComment on above:OrdersStart: 07-16-2024 End: 72-77-9568jilkvvrvusHKFQT GILLESPIEFacility:[facility] Hospitaltart: 07-14-2024 End: 61-25-9533Jadkmcn encounter procedureRoney Physician Group-[facility] Work Phone: Start: 07-10-2024 End: 92-91-0976LigwioJppxqNayana Edouard DO Work Phone: [facility] Orthopedic SurgeonsStart: 07-08-2024 End: 61-33-8090Pwhqs abstractGabby Contreras PA-C Work Phone: Pulmonary MedicineStart: 06-29-2024 End: 74-72-9046Vxbszocxt encounterDevanna Ortiz [facility] N486Wbzurwj on above:AppointmentStart: 06-22-2024 End: 45-90-2654Tjqzfi OnlyKaterina Contreras PA-C Work Phone: Pulmonary MedicineComment on above:Pleural effusion (Primary Dx)Pleural effusion (Primary Dx); Pleuritis; Lymphocytic colitis; Pericardial effusion (noninflammatory); Interstitial pulmonary disease (HCC)Start: 06-12-2024 End: 62-49-5199Tioqszk encounter procedureJose Antonio Hopper MD Work Phone: Jose Antonio Hopper MDComment on above:Recurrent pleural effusion on right (Primary Dx); Primary hypertension; Lymphocytic colitis; Elevated C-reactive protein (CRP); Exocrine pancreatic insufficiency; Hypokalemia; AnasarcaStart: 06-01-2024 End: 05-55-1271jgeobxamjjEQZHSTShayna VILLAFacility:[facility] Start: 06-01-2024 End: 06-20-4826Pevlvo outpatient visit 25 minutesSteffen Villa MD Work Phone: RheumatologyComment on above:Pleural effusion (Primary Dx); Elevated sed rate; Elevated C-reactive protein (CRP)Start: 05-29-2024 End: 20-83-9021ptvwgvoypsBSZYPANW E BALLFacility:[facility]tart: 05-26-2024 End: 03-36-8722wgbbbdmvcjMQXNKE NASEERFacility:[facility]tart: 05-26-2024 End: 17-82-0387Cecxbx outpatient visit 25 minutesSelenea Naseer MD Work Phone: GastroenterologyComment on above:Lymphocytic colitis (Primary Dx)Start: 05-25-2024 End: 75-66-9849Nrkbixdlc encounterTeasia Berny Longoria HUCAdmittingStart: 05-18-2024 End: 30-88-0249noadkrrongPUMSPRS MAJUMDARFacility:[facility] Start: 05-18-2024 End: 33-07-6823Ozztpaikdd hospital visit by physicianXr [facility] Work Phone: RadiologyComment on above:Pleural effusion [J90]Start: 05-18-2024 End: 94-63-8799yvplqdejikGZLUDWT MAJUMDARFacility:[facility] Start: 05-18-2024 End: 67-98-7082Coumkup encounter procedureLouise Cesar MD Work Phone: Pulmonary MedicineComment on above:Pleural effusion (Primary Dx); Chronic cough; Lung nodule; Lymphocytic colitisStart: 05-13-2024 End: 89-43-1450Jodrwkl encounter procedureJose Antonio Hopper MD Work Phone: Jose Antonio Hopper MDComment on above:Recurrent pleural effusion on right (Primary Dx); Anasarca; Chronic cough; Primary hypertensionStart: 05-11-2024 End: 86-57-0758llsfsrhbmaNxyhdp Naseer MD Work Phone: GastroenterologyComment on above:Willie Reidart: 05-07-2024 End: 53-93-1139xeawulgpkoBbrksk Naseer MD Work Phone: GastroenterologyComment on above:Willie Johnson: 05-05-2024 End: 15-54-2394qxdoodesdsDpohls Naseer MD Work Phone: GastroenterologyComment on above:Willie Johnson: 04-30-2024 End: 87-32-6226UqfvdvBlanca Terrell MD Work Phone: [facility] ENDOStart: 04-28-2024 ambulatoryVASILIY OLARFacility:[facility] Worcestertart: 04-28-2024 End: 41-66-1261Euffpbcwgc hospital visit by Marisol Ponce MD Work Phone: [facility] - ENDOComment on above: Diarrhea, unspecified type [R19.7]Start: 63-15-2289ebowutlssgVDJXQ E ARKOUSH [facility]24 End: 64-10-6887fxmrimyvkmUSXJEG NASEERFacility:[facility]tart: 04-22-2024 End: 64-01-9395Smfdvrkxtp hospital visit by [facility] (I-Stat)CT Scan [place] FHCComment on above:Diarrhea, unspecified type [R19.7]Start: 04-20-2024 End: 99-09-6984cxeofuywftPXDWRA NASEERFacility:[facility] HospitalStart: 04-20-2024 End: 93-13-4995Qfjgyy outpatient new 45 Ernesto Terrell MD Work Phone: GastroenterologyComment on above:Abdominal pain, unspecified abdominal location (Primary Dx); Diarrhea, unspecified typeStart: 04-20-2024 End: 16-32-4903kotajpsmpmOJIGEV NASEERFacility:[facility] HospitalStart: 03-30-2024 End: 72-39-0028Ptemtd outpatient new 60 Bal Villa MD Work Phone: RheumatologyComment on above:Pleural effusion (Primary Dx); Elevated sed rate; Elevated C-reactive protein (CRP); Diarrhea, unspecified typeStart: 48-38-9028yqqhgnszavAWFXJJZ MAJUMDAR [facility] 03-26[facility]2024 End: 15-79-1449Wfpqavfmym hospital visit by Ki Toure Work Phone: Cardiovascular TestingComment on above:Pericarditis, unspecified chronicity, unspecified type [I31.9]Start: 39-20-2517hlsgfefhli LOUISE CARLOSacility:[place] HospitalStart: 03-17-2024 End: 97-04-7603Swyhavrrzw hospital visit by physicianRadio Ct Scan [place] Work Phone: RadiologyComment on above:Interstitial pulmonary disease (HCC) [J84.9]Start: 03-17-2024 End: 70-62-3657jspfdwwagbYVYGCAU MAJUMDARPulmonary LabComment on above: SpirometryStart: 03-17-2024 End: 77-54-2370Tpnbhxi encounter procedureRuma Oshea PA-C Work Phone: Thoracic SurgeryComment on above:Pleural effusion (Primary Dx)Start: 03-17-2024 End: 17-30-6481Djugvfb encounter procedureLouise Cesar MD Work Phone: [facility]UL[facility]OLOGY [facility]OR HOSPITALComment on above:Chronic cough (Primary Dx); Pleural effusion; Pleuritis; Interstitial pulmonary disease (HCC); Pericardial effusion (noninflammatory); Pericarditis, unspecified chronicity, unspecified typeStart: 03-17-2024 End: 74-96-9196Lbqyyihguh hospital visit by physicianXr [facility] 1XRAY / RADIOLOGY [facility]OSPITALComment on above:Chronic bronchitis, unspecified chronic bronchitis type (HCC) [J42]Start: 03-17-2024 End: 44-87-8632Msotsvt encounter procedurePulm Fct Lab1 - MentorPULMONOLOGY LAB [facility] HOSPITALStart: 03-17-2024 End: 55-05-4425ymsetwynsdXTLUXWJ MAJUMDARPULMONOLOGY LAB [facility]ITALOR HOSPITALComment on above:SpirometryStart: 03-03-2024 End: 56-09-7478Ygiftwemi encounterSezio Flood MD, PhD Work Phone: CardiologyComment on above:Post Dc Program Call - Needs AttnPatient UpdateStart: 02-21-2024 End: 66-80-6590Jeajmhmmu encounterSezio Flood MD, PhD Work Phone: oracic ClinicComment on above:Patient Update (Pleurex output )Start: 02-12-2024 End: 30-73-3926Bwentml encounter Ellie Dial MD Work Phone: Yehuda Dial MDComment on above:Recurrent pleural effusion on right (Primary Dx); History of pericarditisStart: 02-12-2024 End: 00-93-1778Lkyfnwo encounter procedureJose Antonio Hopper MD Work Phone: Jose Antonio Hopper MDComment on above:Recurrent pleural effusion on right (Primary Dx); Primary hypertension; Pleural effusion; Chronic cough; Anemia, unspecified type; HypomagnesemiaStart: 02-04-2024 End: 71-79-9650Aivlego encounter procedureBay[facility] MARKETING SERVICES COORDINATOR.SEO SPECIALIST Work Phone: [facility] SurgeryComment on above:Pleural effusion (Primary Dx); Elevated sed rate; Elevated C-reactive protein (CRP)Start: 02-04-2024 End: 39-49-8119kjesndjuejVPEUJJQS WILTSHIREFacility:[facility] Hospitaltart: 02-04-2024 End: 86-62-4920Akznztjcjl hospital visit by physicianPushmataha Hospital – Antlers MCComment on above:Pleural effusion [J90]Start: 01-28-2024 End: 11-20-9741Gegmvz Ruben Huff DO Work Phone: [facility] Orthopedic SurgeonsStart: 01-22-2024 Admission to same day surgery [facility] MARKETING SERVICES COORDINATOR.SEO SPECIALIST Work Phone: oracic SurgeryComment on above:Willie Raymundo [facility] RegionalStart: 50-45-3153rubqxihxgsFntcdnjt [place] MARKETING SERVICES COORDINATOR.SEO SPECIALIST Work Phone: oracic SurgeryStart: 92-03-2361Qsrfteejc encounter Ronaldo Flood MD, PhD Work Phone: [facility] ClinicComment on above:Received Outside Medical RecordsStart: 01-15-2024 End: 61-59-7998Sslpbst encounter procedureJose Antonio Hopper MD Work Phone: Jose Antonio Hopper MDComment on above:Recurrent pleural effusion on right (Primary Dx); Chronic cough; Elevated C-reactive protein (CRP); Elevated sedimentation rateStart: 01-06-2024 End: 93-87-3275Uokplcn encounter procedureRuma Oshea PA-C Work Phone: [facility] SurgeryComment on above:Pleural effusion (Primary Dx)Recurrent pleural effusion (Primary Dx); History of pericarditis; Chronic coughStart: 01-06-2024 End: 40-92-7165cqaotcxwjwLVLPCG ZAVARELLAFacility:[facility] Hospitaltart: 01-06-2024 End: 56-10-5913Uluvuojhti hospital visit by physicianXr [facility] HOSPComment on above:Recurrent pleural effusion on right [J90] Start: 12-20-2023 End: 01-98-0532Jowstknkrv and management of Lalo MOROCHO [facility]art: 12-20-2023 End: 03-71-6974Ezqzltj encounter procedureBayhealth Hospital, [facility] FARAZ Work Phone: [facility] SurgeryComment on above:Follow-up examination after lung surgery (Primary Dx); Pleural effusion; Bilateral lower extremity edema; Anasarca; Nausea vomiting and diarrheaStart: 12-20-2023 End: 29-82-6549rdjhxepkveVJITBSUV WILTSHIREFacility:[facility] Hospitaltart: 12-20-2023 End: 75-02-9639Jmltitcihb hospital visit by physicianXr [facility] CityComsur[facility] on above:Pleural effusion [J90]Start: 12-17-2023 Telephone Naya Flood MD, PhD Work Phone: CardiologyStart: 12-13-2023 End: 54-61-4859Ghxlnkd encounter procedureBayhealth Hospital[facility] MARKETING SERVICES COORDINATOR.SEO SPECIALIST Work Phone: [facility] SurgeryComment on above:Pleural effusion (Primary Dx)Start: 12-13-2023 End: 62-98-7796vwzbhtvxzrPESDGWUVOswego Medical Center:[facility] Hospitaltart: 12-13-2023 End: 47-32-5381Acqndrhucn hospital visit by physicianXr [facility] CityComment on above:Pleural effusion [J90]Start: 12-03-2023 Telephone encounterBayhealth Hospital, [facility] MARKETING SERVICES COORDINATOR.SEO SPECIALIST Work Phone: [facility] ClinicComment on above:Schedule and Confirm AppointmentsStart: 12-03-2023 End: 81-73-5057Ljpmmju encounter procedureBayhealth Hospital, [facility] MARKETING SERVICES COORDINATOR.SEO SPECIALIST Work Phone: [facility] SurgeryComment on above:Follow-up examination after lung surgery (Primary Dx); Pleural effusionStart: 12-03-2023 End: 87-61-5011wmxkwedemqERWCESJK WILTSHIREFacilashtabula county medical center:[facility] Hospitaltart: 12-03-2023 End: 65-42-8082Jxgsuewrwv hospital visit by physicianXr [facility] CityComment on above:Follow-up exam [Z09]Start: 11-29-2023 End: 85-18-7545Jmyrok OnlyBayhealth Hospital, [facility] MARKETING SERVICES COORDINATOR.SEO SPECIALIST Work Phone: [facility] ClinicComment on above:Follow-up exam (Primary Dx)Surgery follow-up [Z09]Follow-up examination after lung surgery (Primary Dx); Pleural effusionStart: 47-92-8810Xsfbvnwws Naya Flood MD, PhD Work Phone: oracic SurgeryStart: 11-12-2023 End: 42-55-0480Tagvfmjnmz hospital visit by [place] Ros[place] MD Work Phone: admittingComment on above: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] Start: 11-12-2023 End: 50-56-5684Wissfoi encounter procedureSezio Flood MD, PhD Work Phone: oracic ClinicComment on above:Pleural effusion (Primary Dx)Start: 11-12-2023 End: 93-13-9862Uipyeth encounter statusCard InjectionGreen Cross Hospitaltart: 11-12-2023 End: 08-55-6451Qnwwbdnxpx hospital visit by physicianCard InjectionMolecular ImagingStart: 11-12-2023 End: 48-84-8222Thlaiie encounter statusXr J1 Work Phone: [facility]tart: 11-12-2023 End: 47-36-0009Rftblczhrd hospital visit by physicianXr Chest Main J1 Work Phone: RadiologyComment on above:Pleural effusion [J90]Start: 94-86-1431Wpotbvraw encounterSezio Flood MD, PhD Work Phone: oracic ClinicComment on above:Patient Question (pt not)Start: 07-08-6838Yihjtfidf to same day surgery centerSezio Flood MD, PhD Work Phone: oracic ClinicComment on above:Schedule Surgery (Right VATS biopsy/ pleurodesis cs=2.5 los =2-3)Start: 39-18-1676liukxujxzu Ronaldo Flood MD, PhD Work Phone: [facility] ClinicStart: 17-74-0329Nxyhrnn encounter statusRonaldo Flood MD, PhD Work Phone: [facility]tart: 10-24-2023 End: 35-54-0642Zsdhnqz encounter procedureSezio Flood MD, PhD Work Phone: oracic ClinicComment on above:Obesity, Class I, BMI 30-34.9 (Primary Dx); Pleural effusionStart: 79-79-0894Unriaqiig encounterSezio Flood MD, PhD Work Phone: oracic ClinicComment on above:External Referrals/resourcesStart: 47-74-0461Rzrgcvbjs encounterNo Pcp APRNReferring PhysicianComment on above:External Referrals/resourcesStart: 10-02-2023 End: 55-87-9508nlflzjoyleOO Sintia Clemente Work Phone: [facility] Work Phone: Start: 10-02-2023 End: 05-75-2167Chmxkdkg ReferredDO Sintia Clemente Work Phone: [facility]-LAB Path Spec [place] HospStart: 10-01-2023 End: 73-63-4031jwwtohtukpXqqlhc P SamsaFacility:[facility]tart: 56-13-3663Apv-patient / Non-visitDO Sintia Clemente Work Phone: [facility] Work Phone: Start: 55-17-9516Rdy-patient / Non-visitDO Sintia Clemente Work Phone: [facility] Professional [facility] Work Phone: Start: 09-05-2023 End: 91-71-3707kqjziszdvuMxikab P SamsaFacility:[facility]tart: 09-05-2023 End: 61-70-7213uogovgetbgKT Nathan Samsa Work Phone: [facility] Work Phone: Start: 09-05-2023 End: 01-58-0060Ylutusjj ReferredDO Sintia Clemente Work Phone: [facility]-LAB Path Spec [place] HospStart: 09-04-2023 End: 51-01-6700rmnbxwwkrzGxvuwc P SamsaFacility:[facility]tart: 09-04-2023 End: 42-48-9339zmmlyvuzznTM Sintia Mcarthursa Work Phone: [facility] Work Phone: Start: 09-04-2023 End: 47-21-7055Jelzrpcl ReferredDO Sintia Clemente Work Phone: [facility]-LAB Path Spec [place] HospStart: 78-10-3063Wyn-patient / Non-visitDO Sintia Clemente Work Phone: [facility] Work Phone: Start: 61-76-2576Bze-patient / Non-visitDO Sintia Clemente Work Phone: [facility] Work Phone: Start: 79-05-7950Pnc-patient / Non-visitDO Sintia Clemente Work Phone: [facility] Work Phone: Start: 17-15-7145Hzp-patient / Non-visitDO Sintia Clemente Work Phone: [facility] Work Phone: Start: 97-36-1556Kcs-patient / Non-visitDO Sintia Clemente Work Phone: [facility] Work Phone: Start: 08-13-2023 End: 37-91-7443Thxwjgu encounter procedureDO Sintia Clemente Work Phone: [facility] Work Phone: Start: 07-23-2023 End: 33-72-2988tuilyfcovuTcscvrej Ball Other [facility] [employer] Other Start: 33-10-2882Qutorpy encounter procedureBenjamin BallFPG [facility] Alliancetart: 07-10-2023 End: 03-78-6474tjqipbtquzQoabkgow Ball Other [facility] [employer] Other Start: 35-53-0774Wzoudwomy encounterBenjamin BallFPG [facility] ClinicStart: 07-08-2023 End: 10-82-2914ufbylptferQudwnzex Ball Other [employer] Other Start: 28-57-7150Gmfipgabr encounterBenjamin BallFPG [facility] ClinicStart: 07-07-2023 End: 84-64-1087oggduwgnozXajvmqql Ball Other [employer] Other Start: 48-73-9622Agfndypyn encounterBenjamin BallFPG [facility] ClinicStart: 06-25-2023 End: 69-50-5106Xsqisw Colton Spangler [facility] Orthopedic SurgeonsComment on above:Status post total knee replacement, bilateral (Primary Dx)Start: 74-93-6613Cpcdwekmj encounterBenjamin BallFPG [facility] ClinicStart: 05-07-2023 End: 75-53-0678brkcfzrvitNzcpuwej Ball Other [employer] Other Start: 25-03-7779Aospsswzv encounterBenjamin BallFPG [facility] ClinicStart: 04-24-2023 End: 24-95-4778xxmeobdfwsPyfzkuky Ball Other [employer] Other Start: 75-74-0062Yoaveccyd encounterBenjamin BallFPG [facility] ClinicStart: 04-22-2023 End: 95-51-8994nftewsinemQfkeuubl Ball Other [employer] Other Start: 06-81-3094Tcaycny encounter procedureBenjamin BallFPG [facility] ClinicStart: 04-19-2023 End: 48-44-2160hwefsaezxuUuwxiekm Ball Other [employer] Other start: 56-87-9618Yrvujjohe encounterBenjamin EdnaG [facility] ClinicStart: 04-17-2023 End: 14-76-6513alicibvlqfEhvirrkp Ball Other [facility] [employer] Other Start: 74-99-8444Slwcifets encounterBenjamin EdnaG [facility] ClinicStart: 02-11-2023 End: 24-85-9378Pppe/qhp telephone evaluation 5-10 minBrrudi Edouard DO Work Phone: [facility] Orthopedic SurgeonsComment on above:Hallux rigidus of left foot (Primary Dx)Start: 02-11-2023 End: 03-15-3158PwvnclMkwrzv Mundy [facility] Orthopedic SurgeonsStart: 01-16-2023 End: 89-67-6287ztcdasgjrxOFUZQJYQ E BALLOhio Health AmbulatoryStart: 01-16-2023 End: 47-31-2855Xklzub outpatient visit 10 minutesNena Huff DO Work Phone: [place] Orthopedic SurgeonsComment on above:Status post total knee replacement, bilateral (Primary Dx)Start: 01-10-2023 End: 28-09-9341wklmcwxqqiRkfdftic Ball Other [facility] [employer] Other Start: 66-74-9991Xgwlfev encounter procedureBendonnymin EdnaG [facility] ClinicStart: 11-19-2022 End: 14-34-2012fcqktscytnQMYATKMG E BALLOhio Health AmbulatoryStart: 11-19-2022 End: 19-80-3915Bktvkz outpatient visit 15 minutesMargie Edouard DO Work Phone: [employer] Orthopedic SurgeonsComment on above:Hallux rigidus of left foot (Primary Dx)Start: 10-08-2022 End: 23-76-3036ujusfchriuAZKHFAGR E BALLOhio Health AmbulatoryStart: 10-08-2022 End: 81-56-6971Eubdnn outpatient visit 5 minutesKevin Jah Faith PA-C Work Phone: [facility] Orthopedic SurgeonsComment on above:Hallux rigidus of left foot (Primary Dx); Metatarsalgia, left footStart: 52-48-5088KfvvamCfqtjk Mundy [facility] Orthopedic SurgeonsStart: 08-28-2022 End: 17-06-6283YaceatXpdnrp Schroeder Athletic TrainUniversity Hospitals Parma [facility] Center Orthopedic SurgeonsStart: 08-28-2022 End: 72-28-0048Uphuyr outpatient new 30 minutesBrian Rebecca Edouard DO Work Phone: [place] Orthopedic SurgeonsComment on above:Hallux rigidus of left foot (Primary Dx); Eaton's metatarsalgia, leftStart: 03-19-2022 End: 37-51-2565fpytmozexjZB NONE LISTED REQUESTFacility:P5Pziwo: 08-11-2021 RefFlorentin Huff DO Work Phone: [facility] Orthopedic SurgeonsComment on above:Status post total knee replacement, bilateral (Primary Dx)Start: 08-11-2020 End: 18-12-2388Twwsvq ToroAdventhealthrex Todd Work Phone: [facility] Start: 07-20-2020 End: 29-87-0046Msjgvs outpatient visit 10 Stephen Huff Work Phone: [facility] Orthopedic SurgeonsComment on above:Status post total knee replacement, bilateral (Primary Dx)Start: 07-01-2019 End: 26-11-5911Fciqrc outpatient visit 10 Stephen Huff Work Phone: [facility] Orthopedic SurgeonsComment on above:Status post total knee replacement, bilateral (Primary Dx)Start: 07-30-2017 Office/outpatient visit, est, level 3Ray Stew Calloway Work Phone: [employer] Orthopedic SurgeonsStart: 01-29-2017 End: 05-56-1107Xqecya outpatient visit 15 minutesRay Stew Calloway Work Phone: [facility] Orthopedic SurgeonsComment on above:Primary osteoarthritis of right knee (Primary Dx);Status post total right knee replacement Procedures DateProcedureProcedure DetailPerforming ClinicianStart: 45-55-3163Vibkl foot complete minimum 3 viewsStjuancarlos Chowdary DPM Work Phone: Start: 11-47-8073Zwdmu dip stick/tablet rgnt auto w/o microscopyBulk Order ProviderStart: 27-18-6075Rif-scan artl krystal abdl/pel/scrot&/rpr orgn comMarlyn Hooper MARKETING SERVICES COORDINATOR.SEO SPECIALIST Work Phone: Start: 44-43-5988VN ABD LIVER VASCULARMarlyn Hooper APRN.SEO SPECIALIST Work Phone: Start: 49-23-8040Vxrefmxfwj exam chest 2 viewsTriston Riggs MD Work Phone: Start: 24-41-7230BxgqjpxrovhsryeqMCWOPZFKE CLEMICHELLE Start: 95-95-0782Ig chest real time w/image documentationTriston Riggs MD Work Phone: Start: 81-29-7942Jdblnstdvv exam chest 2 views Katerina Contreras PA-C Work Phone: Start: 49-58-1598Eqdqb dip stick/tablet rgnt auto w/o microscopyZabrina Suarez MD Work Phone: Start: 48-32-1701Aa chest real time w/image documentationTriston Riggs MD Work Phone: Start: 04-55-3700Kilipbgosj exam chest 2 viewsLouise Cesar MD Work Phone: Start: 35-12-8461Ydqhktegcuplueoeiusrclrbox transoral diagnosticSue Terrell MD Work Phone: Start: 29-46-7515FYNSYFGWYGV SKIN LESIONEmily Yanira Bynum MD Work Phone: Start: 19-10-1817Nzpdkjkddu exam chest 2 viewsColin Riggs MD Work Phone: Start: 81-26-9274Cespgmdqrxvf ophthalmic imaging retinaJosintia Bajwa DO Work Phone: Start: 08-12-2024 End: 19-14-8350Aadrv medical xm&eval comprhnsv estab pt 1/>Early dry stage nonexudative age-related macular degeneration of both eyesAnne-Marie Bajwa DO Work Phone: comment on above:Early dry stage nonexudative age- related macular degeneration of both eyes (Primary Dx); Dry eyes; Blepharitis of upper and lower eyelids of both eyes, unspecified type; Bilateral posterior capsular opacification; Chalazion of left upper eyelidStart: 56-96-5321Mtgmxvwt totalComment on above: Provided reference range is from 6-10 AM sample collection time.Cortisol Reference Range: 6-10 AM =4.8-19.5 ug/dL, 4-8 PM = 2.5-11.9 ug/dLStart: 48-27-1522Xw chest real time w/image documentationCotim Riggs MD Work Phone: Start: 59-74-1301Lwsrjxbcuw exam chest 2 viewsTita [facility] MARKETING SERVICES COORDINATOR.SEO SPECIALIST Work Phone: Start: 19-50-8734Zdxyzym serum plasma/whole blood Louise Cesar MD Work Phone: Start: 32-49-0463GN MANUAL DIFFUdchapis Cesar MD Work Phone: Start: 42-59-1587Lxsh count misc body fluids w/differential countLouise Cesar MD Work Phone: Start: 92-93-8447HS BODY FLUIDLouise Cesar MD Work Phone: Start: 97-35-7591Leryyhyxdk exam chest 2 Teressa Cesar MD Work Phone: Start: 57-31-9025Eebot 1996 panel - Serum or PlasmaXr [place] Work Phone: Start: 83-96-1784Rlqfoiklskx rig transoral hypopharynx crv esophSue Terrell MD Work Phone: Start: 10-66-8967Gzkzyirkotk flx dx w/collj spec when pfrmdMalipatricio Terrell MD Work Phone: Start: 95-62-2414VgeqyqvfxanJhcwrr Blades MD Work Phone: start: 08-72-0633Fy abdomen & pelvis w/contrast materialSue Terrell MD Work Phone: Start: 80-28-4103JHIYX ECOFIX CONTAINER PERFORMABLE Sue Terrell MD Work Phone: Start: 11-64-5799YOZ EXTRA TUBESSue Terrell MD Work Phone: [phone]: 25-54-6235Xgrms of calprotectin fecalSue Terrell MD Work Phone: [phone]: 08-82-8918Xbu agent det nucleic acid clostridium amp probeSue Terrell MD Work Phone: Start: 24-52-7677BOPT ELASTASE, FECALSue Terrell MD Work Phone: [phone]: 94-95-7463Usgi ia giardiaSue Terrell MD Work Phone: [phone]: 79-30-8469Umin tthrc r-t 2d w/wom-mode compl spec&colr Surya Cesar MD Work Phone: Start: 88-04-0330IXUN ECHOLouise Cesar MD Work Phone: Start: 94-08-7236Pn diffusing capacityLouise Cesar MD Work Phone: Start: 43-81-1342Mfpwhm oxide gas determinationSdarrion Bravo APRN.SEO SPECIALIST Work Phone: Start: 11-20-8374Vtaykhekm rspse spmtry pre&post- brncdilat admnSdarrion Bravo MARKETING SERVICES COORDINATOR.SEO SPECIALIST Work Phone: Start: 14-92-5684Jlbfvrtmda exam chest 2 viewsRuma Oshea PA-C Work Phone: Start: 79-50-7382Xtiua 1996 panel - Serum or PlasmaXr HospStart: 73-41-5784Lk chest real time w/image documentationRoseann Rosario MD Work Phone: start: 11-12-2023 End: 42-09-8079Krdaromqdytma needle/cath pleura w/imagingRenbobo Rosario MD Work Phone: start: 36-37-5377Gyuglchgiv spect multiple studies Ronaldo Flood MD, PhD Work Phone: Start: 36-29-0258Qnseeqixyd exam chest 2 viewsSuterrell Flood MD, PhD Work Phone: Start: 12-90-1361Xhlj Fast SmearDO [facility] Work Phone: Start: 99-55-2775HTU Specimen ProcessingDO [facility] Work Phone: Start: 44-50-6584Nijyqgansez observation [Identifier] in Unspecified specimen by Gram stainDO [facility] Work Phone: Start: 93-15-8001Lbhf Fast SmearDO [facility] Work Phone: Start: 93-29-5589OET Specimen ProcessingDO [facility] Work Phone: Start: 79-14-1337Xyfztvasxgx observation [Identifier] in Unspecified specimen by Gram stain [facility] Work Phone: Start: 35-05-4508Ifuddk-up visitFollow-upKEVIN JAH MORAStart: 73-91-4671FBV screeningDR NONE LISTED REQUESTComment on above:Performed By: #### PSASC #### [facility] [address] [place] [address] Dr. Joni SandersScreening for malignant neoplasm of colonBenjoni Mariscal Other Plan of Treatment DateCare ActivityDetailAuthorStart: 88-86-2587LGeM/Tdap/Td Vaccines (4 - Td or Tdap)DTaP/Tdap/Td Vaccines (4 - Td or Tdap)[facility] HealthcareStart: 92-23-5113Xrley microalbumin profileDTaP,Tdap,Td Vaccine (2 - Td or Tdap)[facility]tart: 69-70-4628Yyukksurg for malignant neoplasm of colonNOMS HealthcareStart: 01-16-9646Vgoiv panelLipid ScreeningGreen Cross Hospitaltart: 12-68-7633Lgpuq panel Lipid ScreeningGreen Cross Hospitaltart: 78-27-4023Bllguhh vaccinationTetanus: Every 10yrsOhioHealthStart: 23-22-2440Xiwodfno ScreeningDiabetes Screening [facility]tart: 97-50-5972Rvdzutpx ScreeningDiabetes ScreeningGreen Cross Hospitaltart: 49-84-9077Rmnpkxrs ScreeningDiabetes ScreeningTrinity Health System [facility] Start: 36-32-0057Rhakbvpl ScreeningDiabetes ScreeningGreen Cross Hospitaltart: 95-72-0606Ugzjfigj ScreeningDiabetes ScreeningGreen Cross Hospitaltart: 11-13-2027 Diabetes ScreeningDiabetes ScreeningGreen Cross Hospitaltart: 90-54-8642Mdrzmkvi ScreeningDiabetes ScreeningGreen Cross Hospitaltart: 73-32-2706Mansehrb Screening Diabetes ScreeningGreen Cross Hospitaltart: 52-76-1610Owiqrcmh ScreeningDiabetes ScreeningGreen Cross Hospitaltart: 08-15-6448Ribrxjyf ScreeningDiabetes Screening [facility]tart: 21-60-0203Vpmjlfcg ScreeningDiabetes ScreeningGreen Cross Hospitaltart: 56-06-7325Dcvxrwml ScreeningDiabetes ScreeningTrinity Health System [facility] Start: 20-68-0256Swtzjuyw ScreeningDiabetes ScreeningGreen Cross Hospitaltart: 90-72-2274Quatlhuk ScreeningDiabetes ScreeningGreen Cross Hospitaltart: 05-29-2027 Diabetes ScreeningDiabetes ScreeningGreen Cross Hospitaltart: 86-16-8709Xhoubrtd ScreeningDiabetes ScreeningGreen Cross Hospitaltart: 12-10-7073Webknsqb Screening Diabetes ScreeningGreen Cross Hospitaltart: 68-35-5666Barptgti ScreeningDiabetes ScreeningGreen Cross Hospitaltart: 63-50-1475Xjdkbzov ScreeningDiabetes Screening [facility]tart: 37-29-1404Pguvqcim ScreeningDiabetes ScreeningGreen Cross Hospitaltart: 85-35-9370Xhsiephu ScreeningDiabetes ScreeningTrinity Health [facility] Start: 68-78-0081Myrrlccr ScreeningDiabetes ScreeningGreen Cross Hospitaltart: 85-57-2241Euywdfcc ScreeningDiabetes ScreeningGreen Cross Hospitaltart: 11-22-2026 Diabetes ScreeningDiabetes ScreeningGreen Cross Hospitaltart: 80-44-0519Xmqolrlz ScreeningDiabetes ScreeningGreen Cross Hospitaltart: 80-01-5908Qmbbnayawnd Syncytial Virus Immunization: Risk, 60-74 Risk, or 75+ (1 - 1-dose 75+ series)Respiratory Syncytial Virus Immunization: Risk, 60-74 Risk, or 75+ (1 - 1-dose 75+ series)[facility]: 78-30-3212Tqzbwlndkq measurement Serum CreatinineRegency Hospital Toledort: 07-68-7218Ihcytp PCP Team Chronic Disease VisitAnnual PCP Team Chronic Disease VisitGreen Cross Hospitaltart: 01-25-2026 Complete blood countHemoglobin/HematocritGreen Cross Hospitaltart: 01-25-2026 Creatinine measurementSerum CreatinineGreen Cross Hospitaltart: 13-63-9745Cgzffh PCP Team Chronic Disease VisitAnnual PCP Team Chronic Disease VisitGreen Cross Hospitaltart: 71-02-5277LF Controlled (<130/80)BP Controlled (<130/80)[facility]: 64-24-2489SV Controlled (<130/80)BP Controlled (<130/80)[facility]: 37-99-0546Bufkwn PCP Team Chronic Disease VisitAnnual PCP Team Chronic Disease VisitGreen Cross Hospitaltart: 17-01-3626BQ Controlled (<130/80)BP Controlled (<130/80)[facility]: 56-64-4053Uxsntf PCP Team Chronic Disease VisitAnnual PCP Team Chronic Disease VisitGreen Cross Hospitaltart: 14-06-2405AX Controlled (<130/80)BP Controlled (<130/80)[facility]: 08-31-2025 End: 11-31-2898Nudphat encounter procedureNOMS SWS DERMStart: 82-91-0815WO Controlled (<130/80)BP Controlled (<130/80)[facility]: 13-17-2241IJ Controlled (<130/80)BP Controlled (<130/80)[facility]: 08-16-2025 End: 79-38-4014Yhwawlk encounter procedureNO NB OPHTStart: 94-10-3914Muzftx PCP Team Chronic Disease VisitAnnual PCP Team Chronic Disease VisitGreen Cross Hospitaltart: 07-05-2025 End: 98-42-9398Lzuoxoz encounter tvlnrapbt28/19/2026 1:15 PM EST Office Visit [facility] [address] [place] [address] Jamel Chowdary DPM [address] [place] [address] [facility]iatryStart: 92-91-4357Qxhvos PCP Team Chronic Disease VisitAnnual PCP Team Chronic Disease VisitGreen Cross Hospitaltart: 94-34-3599MI Controlled (<130/80)BP Controlled (<130/80)[facility]: 05-21-2025 End: 41-01-7199Nmfvstt encounter hyiedsshl94/05/2025 2:00 PM EST Office Visit Cardiology [address] [facility] [place] [address] [place] [address] [facility] [place] [address] 6 month follow upCardiologyComment on above:6 month follow up Start: 05-14-2025 End: 82-51-7463Wzhmtpj encounter dmssaftkx42/28/2025 8:00 AM EST Office Visit Gastroenterology [address] [phone] Christie Palumbo APRN.CNP [address] [place] [address] Marlyn Hooper RefferedGastroenterologyComment on above: Marlyn Hooper RefferedStart: 29-25-1399Wtuueg PCP Team Chronic Disease Visit Annual PCP Team Chronic Disease VisitGreen Cross Hospitaltart: 85-41-1770AV Controlled (<130/80)BP Controlled (<130/80)[facility]: 05-12-2025 End: 05-26-1603Bmevrym encounter uwwfwbova40/26/2025 8:25 AM EST Office Visit Gastroenterology [address] [address] Luis Valentine MD [address] [phone] Marlyn Hooper RefferedGastroenterologyComment on above:Marlyn Hooper RefferedStart: 10-33-2901Lvldmbkgg for malignant neoplasm of colon [facility]: 04-27-2025 End: 46-34-3865Npewsid encounter hjocxfavo85/11/2025 1:45 PM EST Office Visit [facility] [address] [place] [phone] Jamel Chowdary DPM [address] [place] [address] [facility] PodiatryStart: 04-14-2025 End: 47-04-7563Weqxqkb encounter ptrultrix66/29/2025 4:15 PM EDT Procedure Visit [facility] [address] [place] [phone] Jamel Chowdary DPM [address] [place], [place] [phone] FilibertoMS LiveOronoco PodiatryComment on above:ArrivedStart: 04-07-2025 End: 83-42-5551Eqsplrv encounter dqccgebdg59/22/2025 2:45 PM EDT Procedure [facility] [address] [place] [address] Jamel Chowdary DPM [address] [place] [address] [facility] PodiatryStart: 03-25-2025 End: 84-10-2516Paupszs encounter sxqkgrofm03/09/2025 11:15 AM EDT Office Visit [facility] [address] [place] [address] Jamel Chowdary DPM [address] [place] [address] NOMS [facility] PodiatryStart: 03-17-2025 End: 43-44-4175Ovyuofv encounter bdmcqdtjy28/01/2025 10:15 AM EDT Office Visit [facility] [address] [place] [address] Jamel Chowdary DPM [address] [place] [address] NOMS [facility] PodiatryStart: 03-12-2025 End: 36-04-3755Gmtjalu encounter wxskqoigs60/26/2025 8:45 AM EDT Office Visit [facility] [address] [place] [address] Jamel Chowdary DPM [address] [place] [address] Filiberto O[facility]oco PodiatryComment on above:ArrivedStart: 03-09-2025 End: 37-55-9839Fykkzkg encounter lnfnvepav34/23/2025 1:15 PM EDT [place] [address] [facility] [place], [place] [phone] [place] [address] [facility] [place], [place] [phone] Follow-upJose Antonio Hopper MDComment on above:Follow-upStart: 02-25-2025 End: 72-07-4778Pzylciu encounter zvzbpbtsy36/11/2025 10:20 AM EDT Office Visit [facility] [address] [address] Zabrina Suarez MD [address] [place] [address] Elevated serum creatinine [R79.89][facility] DistrictComment on above:Elevated serum creatinine [R79.89]Start: 02-19-2025 End: 37-78-7032Hnsshbi encounter cbonbgxjl85/05/2025 1:30 PM EDT Appointment Radiology [address] [address] Other ascites [R18.8]RadiologyComment on above:Other ascites [R18.8]Start: 99-97-1441GTSVX-19 Vaccine ( season)COVID-19 Vaccine ()[facility] Start: 64-43-4650Dlplzvwah vaccinationInfluenza Vaccine (#1)[facility] Start: 55-86-9545Bzoucs PCP Team Chronic Disease VisitAnnual PCP Team Chronic Disease VisitGreen Cross Hospitaltart: 96-87-1893BF Controlled (<130/80)BP Controlled (<130/80)[facility]: 02-09-2025 End: 22-86-3748Jcrwwaygpyggc metabolic 2000 panel - Serum or PlasmaCOMPREHENSIVE METABOLIC PANEL Lab Routine Stage 3a chronic kidney disease (HCC) Expected: 02/09/2025, Expires: 05/10/2025P [facility] Work Phone: comment on above:Expected: 02/09/2025, Expires: 05/10/2025Start: 16-08-7152DH Controlled (<130/80)BP Controlled (<130/80) [facility]: 02-02-2025 End: 41-25-8948Lalgzqgky to same day surgery cdjfmk0902/02/2025 9:30 AM EDT - 02/02/2025 11:20 AM EDT Surgery Angio [address] [place] [address] R ADIOLOGY SPECIALIST [address] [place] [address] TRANSCATHETER BIOPSY AngioComment on above:TRANSCATHETER BIOPSYStart: 71-86-4066Qkrgvqbcju hospital visit by blhqzpats35/19/2025 9:30 AM EDT Hospital Encounter Angio [address] [place] [address] TREE AND SHRUB TECHNICIAN [address] [place] [address] Elevated alkaline phosphatase level [R74.8]AngioComment on above:Elevated alkaline phosphatase level [R74.8]Start: 02-02-2025 End: 82-48-0819Llpiptdyiuzuq biopsyTRANSCATHETER BIOPSY Elevated alkaline phosphatase level 02/02/2025 9:30 AM EDTMC ANGIO XU6Pzbls: 01-26-2025 End: 88-21-7811Kmvooyw encounter muiuosxkx76/12/2025 1:00 PM EDT [place] [address] [place] [address] [place] [address] [place] [address] Follow-upJose Antonio Hopper MDComment on above:Follow-upStart: 59-26-9742Gxawdo PCP Team Chronic Disease VisitAnnual PCP Team Chronic Disease VisitGreen Cross Hospitaltart: 01-11-2025 End: 59-82-2919Dircuef encounter uywfwnppm31/28/2025 9:30 AM EDT Office Visit Pulmonary Medicine [address] [place] [address] Triston Riggs MD [address] [place] [address] 4-6 weeksPulmonary MedicineComment on above:4-6 weeksStart: 01-08-2025 End: 06-11-2447Yqjnplk encounter dcqiowidk15/25/2025 1:00 PM EDT Appointment Radiology [address] [place] [address] [place] [address] XRCHEST 2V FRONTAL/LATRadiologyComment on above:XR CHEST 2V FRONTAL/LATStart: 12-22-2024 End: 34-87-5405yekjnotcjl03/08/2025 6:00 PM EDT [facility] Gastroenterology [address] [address] Marlyn Hooper APRN.SEO SPECIALIST [address] [place] [address] Elevated alkaline phosphatase leveGastroenterologyComment on above:Elevated alkaline phosphatase leveStart: 12-22-2024 End: 06-79-2060Kwmha 1 antitrypsin [Mass/volume] in Serum or Plasma BHOFF-8-WGWEIHFLRDN Lab Routine Elevated alkaline phosphatase level Expected: 12/22/2024, Expires: 03/23/2025[facility] ClinicComment on above:Expected: 12/22/2024, Expires: 03/23/2025Start: 12-22-2024 End: 39-15-1141AVT BY IFA WITH REFLEXANA BY IFA WITH REFLEX Lab Routine Elevated alkaline phosphatase level Expected: 12/22/2024, Expires: 03/23/2025[facility] ClinicComment on above:Expected: 12/22/2024, Expires: 03/23/2025Start: 12-22-2024 End: 27-96-4243Yctqa metabolic 2000 panel - Serum or PlasmaBASIC METABOLIC PANEL Lab Routine Hypokalemia Expected: 12/22/2024, Expires: 03/23/2025P JOSE ANTONIO HOPPER MD [facility] Work Phone: comment on above:Expected: 12/22/2024, Expires: 03/23/2025Start: 12-22-2024 End: 72-12-5803RSV panel - Blood by Automated countCOMPLETE BLOOD COUNT Lab Routine Elevated alkaline phosphatase level Expected: 12/22/2024, Expires: 03/23/2025[facility] ClinicComment on above:Expected: 12/22/2024, Expires: 03/23/2025Start: 12-22-2024 End: 10-53-5618Xiutpfb hepatitis differentiation between hepatitis B and C virus panel - Serum or PlasmaHEP REMOTE PANEL BL Lab Routine Elevated alkaline phosphatase level Expected: 12/22/2024, Expires: 03/23/2025[facility] Comment on above:Expected: 12/22/2024, Expires: 03/23/2025Start: 12-22-2024 End: 12-96-6724Wwqzuloumkyec metabolic 2000 panel - Serum or PlasmaCOMPREHENSIVE METABOLIC PANEL Lab Routine Elevated alkaline phosphatase level Expected: 12/22/2024,Expires: 03/23/2025[facility] ClinicComment on above:Expected: 12/22/2024, Expires: 03/23/2025Start: 12-22-2024 End: 15-38-5258Ceeglrouqdhgxdl IgM Ab [Units/volume] in Serum or PlasmaCMV IGM AB Lab Routine Elevated alkaline phosphatase level Expected: 12/22/2024, Expires: 03/23/2025[facility] ClinicComment on above:Expected: 12/22/2024, Expires: 03/23/2025Start: 12-22-2024 End: 85-28-5744Kmcmtxap [Mass/volume] in Serum or PlasmaFERRITIN Lab Routine Elevated alkaline phosphatase level Expected: 12/22/2024, Expires: 03/23/2025 [place] ClinicComment on above:Expected: 12/22/2024, Expires: 03/23/2025Start: 12-22-2024 End: 27-01-9047Hjhvf glutamyl transferase [Enzymatic activity/volume] in Serum or PlasmaGGT Lab Routine Elevated alkaline phosphatase level Expected: 12/22/2024, Expires: 03/23/2025[facility] ClinicComment on above:Expected: 12/22/2024, Expires: 03/23/2025Start: 12-22-2024 End: 17-33-0536Orih and Iron binding capacity panel - Serum or PlasmaIRON AND TIBC Lab Routine Elevated alkaline phosphatase level Expected: 12/22/2024, Expires: 03/23/2025[facility] ClinicComment on above:Expected: 12/22/2024, Expires: 03/23/2025Start: 12-22-2024 End: 85-26-1387Owvdx kidney microsomal Ab [Titer] in Serum by Immunofluorescence LIVER-KIDNEY MICROSOME ANTIBODY, IGG Lab Routine Elevated alkaline phosphatase level Expected: 12/22/2024, Expires: 03/23/2025[facility] ClinicComment on above: Expected: 12/22/2024, Expires: 03/23/2025Start: 12-22-2024 End: 53-51-0388Gzrtedbkdrim Ab [Presence] in Serum by Immunofluorescence MITOCHONDRIAL M2 IGG SERUM Lab Routine Elevated alkaline phosphatase level Expected: 12/22/2024, Expires: 03/23/2025[facility] ClinicComment on above: Expected: 12/22/2024, Expires: 03/23/2025Start: 12-22-2024 End: 38-43-5941UO panel - Platelet poor plasma by Coagulation assayPROTHROMBIN TIME Lab Routine Elevated alkaline phosphatase level Expected: 12/22/2024, Expires: 03/23/2025[facility] ClinicComment on above:Expected: 12/22/2024, Expires: 03/23/2025Start: 12-22-2024 End: 01-19-6486Jeasex muscle Ab [Presence] in SerumSMOOTH MUSCLE AB SCR Lab Routine Elevated alkaline phosphatase level Expected: 12/22/2024, Expires: 03/23/2025[facility] ClinicComment on above:Expected: 12/22/2024, Expires: 03/23/2025Start: 12-16-2024 End: 36-16-5609Xubjury encounter procedureVascular SurgeryComment on above: Extremity cyanosis [R23.0]Start: 12-16-2024 End: 27-10-3263Ewbmjnp encounter fnfoyhprx45/02/2025 12:30 PM EDT Office Visit Vascular Surgery [address] [place] [address] Extremity cyanosis [R23.0]Vascular SurgeryComment on above:Extremity cyanosis [R23.0]Start: 12-15-2024 End: 26-78-0578Ebousqk encounter hobougggm88/01/2025 11:15 AM EDT [place] [address] [facility] [place] [address] [place] [address] [facility] [place] [address] Follow-upJose Antonio Hopper MDComment on above:Follow-upStart: 12-03-2024 End: 71-53-7064xvrlcqwjod87/19/2025 8:30 AM EDT [facility] Gastroenterology [address] [address] Marlyn Hooper APRN.SEO SPECIALIST [address] [place] [address] Elevated alkaline phosphatase leveGastroenterologyComment on above:Elevated alkaline phosphatase leveStart: 11-23-2024 End: 50-23-5031Pivpchd encounter procedureRadiologyComment on above:Hepatomegaly [R16.0]Extremity cyanosis [R23.0]CXRH&P Established Patient VisitStart: 11-20-2024 End: 36-40-5279OfpwqvmqojzoqaknGXHZ Cardiology Routine Extremity cyanosis Expected: 11/20/2024, Expires: 11/20/2025[facility] ClinicComment on above: Expected: 11/20/2024, Expires: 11/20/2025Start: 11-20-2024 End: 46-04-0903Faxlmst encounter qlvrfzsbo49/06/2025 9:00 AM EDT Office Visit Cardiology [address] [facility] [place] [place] [address] [place] [address] [facility] [place] [address] PAD, LE with poor perfusionCardiologyComment on above:PAD, LE with poor perfusionStart: 11-19-2024 End: 13-16-3819Mlxmbuz encounter procedurePulmonary MedicineComment on above:f/u visit/Dr. KENNEDY will see pt.Start: 11-19-2024 End: 61-28-9808mmemqizqmt15/05/2025 10:30 AM EDT [facility] Gastroenterology [address] [phone] Marlyn Hooper, MARKETING SERVICES COORDINATOR.SEO SPECIALIST [address] [place] [address] Elevated alkaline phosphatase leveGastroenterologyComment on above: Elevated alkaline phosphatase leveStart: 11-14-2024 End: 07-61-1196Wzhiykxigfdta metabolic 2000 panel - Serum or PlasmaCOMPREHENSIVE METABOLIC PANEL Lab Routine Hepatomegaly Expected: 11/14/2024, Expires: 02/13/2025[facility] ClinicComment on above:Expected: 11/14/2024, Expires: 02/13/2025Start: 11-14-2024 End: 55-67-2074Rcwmzxxsa [Mass/volume] in Serum or PlasmaMAGNESIUM Lab Routine Hypomagnesemia Expected: 11/14/2024, Expires: 02/13/2025[facility] ClinicComment on above:Expected: 11/14/2024, Expires: 02/13/2025Start: 11-13-2024 End: 64-21-7413Bpcqj hepatitis 2000 panel - SerumHEP ACUTE PANEL BL Lab Routine Hepatomegaly Expected: 11/13/2024, Expires: 02/12/2025P JOSE ANTONIO HOPPER MD [facility] Work Phone: comment on above:Expected: 11/13/2024, Expires: 02/12/2025Start: 11-13-2024 End: 70-06-6778LMGIYBWBIJ HEPATITIS DIAGNOSTIC PANELAUTOIMMUNE HEPATITIS DIAGNOSTIC PANEL Lab Routine Hepatomegaly Expected: 11/13/2024, Expires: leveland ClinicComment on above:Expected: 11/13/2024, Expires: 02/12/2025 Start: 11-13-2024 End: 73-28-0560JVLGRF BLOODCOPPER BLOOD Lab Routine Hepatomegaly Expected: 11/13/2024, Expires: 02/12/2025[facility] ClinicComment on above:Expected: 11/13/2024, Expires: 02/12/2025Start: 11-13-2024 End: 49-21-7068Dbfrpoxkr C virus RNA [Units/volume] (viral load) in Serum or Plasma by BRYN with probe detectionHEPATITIS C VIRUS (HCV) RNA, QUANTITATIVE PCR, PLASMA/SERUM Lab Routine Hepatomegaly Expected: 11/13/2024, Expires: 02/12/2025 [facility] CenterComment on above:Expected: 11/13/2024, Expires: 02/12/2025Start: 11-13-2024 End: 11-93-7762Ekfz and Iron binding capacity panel - Serum or PlasmaIRON AND TIBC Lab Routine Hepatomegaly Expected: 11/13/2024, Expires: 02/12/2025[facility] ClinicComment on above:Expected: 11/13/2024, Expires: 02/12/2025Start: 11-13-2024 End: 58-48-3843Vwtlsmy encounter imxlvsjry88/30/2025 1:00 PM EDT [place] [address] [place] [address] [place] [address] [place] [address] Follow-upJose Antonio Hopper MDComment on above:Follow-upStart: 11-04-2024 End: 42-27-4960Jwgejwe [facility] Radiology CT ScanComment on above:CT ENTEROGRAPHY W IVCONStart: 10-23-2024 End: 79-05-5813Aluqscz encounter procedureLds Hospital Draw StationComment on above:LABUS ABD RIGHT UPPER QUADRANTStart: 10-19-2024 End: 83-93-7050Brgtpoy [Enzymatic activity/volume] in Serum or PlasmaAMYLASE Lab Routine Serositis ([facility]) Expected: 10/19/2024, Expires: 01/18/2025[facility] ClinicComment on above:Expected: 10/19/2024, Expires: 01/18/2025Start: 10-19-2024 End: 51-89-0283WPT SUBCLASSES BLDIGG SUBCLASSES BLD Lab Routine Serositis ([facility]) Expected: 10/19/2024, Expires: 01/18/2025[facility] Work Phone: comment on above:Expected: 10/19/2024, Expires: 01/18/2025Start: 10-19-2024 End: 17-79-6053Nqvzpk [Enzymatic activity/volume] in Serum or PlasmaLIPASE Lab Routine Serositis ([facility]) Expected: 10/19/2024, Expires: 01/18/2025[facility] ClinicComment on above:Expected: 10/19/2024, Expires: 01/18/2025Start: 10-15-2024 End: 34-65-9400DTE PHOS ISOENZYM White HospitalComment on above:Expected: 10/15/2024, Expires: 01/14/2025Start: 10-14-2024 End: 47-43-5100Zapkknc encounter procedurePulmonary MedicineComment on above:EST pt visit in H23 w/Dr Riggs post 10/02 procedureabdominal painStart: 10-13-2024 End: 28-41-8840Fjjtstr encounter asdwdxwbd22/29/2025 1:00 PM EDT Appointment Radiology [address] [place] [address] [place] [address] CHEST XRAY RadiologyComment on above:CHEST XRAYStart: 10-02-2024 End: 81-69-4646Lfgbycihwffto needle/cath pleura w/imagingTHORACENTESIS NEEDLE OR CATHETER ASPIRATION OF THE PLEURAL SPACE W IMAGING GUIDANCE Bronchiolar disease 10/02/2024 11:42 AM EDTMC PULM LAB P83Rjqpl: 10-02-2024 End: 14-70-8544Nmnhqckft to same day surgery pxznvk5010/02/2024 10:30 AM EDT - 10/02/2024 11:30 AM EDT Surgery Admitting [address] [address] Merlyn Zavala MD [address] [facility] [address] THORACENTESIS NEEDLE OR CATHETER ASPIRATION OF THE PLEURAL SPACE W IMAGING GUIDANCEAdmittingComment on above:THORACENTESIS NEEDLE OR CATHETER ASPIRATION OF THE PLEURAL SPACE W IMAGING GUIDANCEStart: 10-02-2024 Subsequent hospital visit by cimcmjofd43/18/2025 10:30 AM EDT Hospital Encounter Admitting [address] [address] Merlyn Zavala MD [address] [place] [address] Bronch iolar disease [J98.09]AdmittingComment on above: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] Start: 10-02-2024 End: 81-64-9822Dlulimthjcaoi needle/cath pleura w/imagingTHORACENTESIS NEEDLE OR CATHETER ASPIRATION OF THE PLEURAL SPACE W IMAGING GUIDANCE Bronchiolar disease 10/02/2024 10:30 AM EDTMC PULM LAB J07Vkwhg: 09-25-2024 End: 21-91-2832Adfvrch encounter procedureGastroenterologyComment on above: Esophageal dysphagia [R13.19]Start: 09-22-2024 End: 43-11-6423Jlhpejz encounter procedureJose Antonio Hopper MDComment on above: Follow-upStart: 09-11-2024 End: 36-98-8564Vzzyz metabolic 2000 panel - Serum or PlasmaBASIC METABOLIC PANEL Lab Routine Hypokalemia Expected: 09/11/2024, Expires: 12/11/2024P JOSE ANTONIO HOPPER MD [facility] Work Phone: Comment on above:Expected: 09/11/2024, Expires: 12/11/2024Start: 09-11-2024 End: 54-36-0368FUZ panel - Blood by Automated countCOMPLETE BLOOD COUNT Lab Routine Anemia, unspecified type Expected: 09/11/2024, Expires: 12/11/2024 [facility] CenterComment on above:Expected: 09/11/2024, Expires: 12/11/2024Start: 09-08-2024 End: 32-86-8918Ltcgdrkwy to same day surgery igjyqk7909/08/2024 10:30 AM EDT - 09/08/2024 11:30 AM EDT Surgery Admitting [address] [address] Roseann Rosario MD [address] [place] [address] THORACENTESIS NEEDLE OR CATHETER ASPIRATION OF THE PLEURAL SPACE W IMAGING GUIDANCEAdmittingComment on above:THORACENTESIS NEEDLE OR CATHETER ASPIRATION OF THE PLEURAL SPACE W IMAGING GUIDANCEStart: 09-08-2024 Subsequent hospital visit by grkujjare67/25/2025 10:30 AM EDT Hospital Encounter Admitting [address] [address] Roseann Rosario MD [address] [place] [address] Bronchiola r disease [J98.09]AdmittingComment on above: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]Start: 09-08-2024 End: 62-32-5905Hdbeceikuokdb needle/cath pleura w/imagingTHORACENTESIS NEEDLE OR CATHETER ASPIRATION OF THE PLEURAL SPACE W IMAGING GUIDANCE Bronchiolar disease 09/08/2024 10:30 AM EDTMC PULM LAB Q82Igaac: 09-04-2024 End: 43-19-6487Vlozmso encounter vlpagqrli76/21/2025 1:15 PM EDT [place] [address] [place] [address] [place] [address] [place] [address] Follow-upVjuan francisco Hopper MDComment on above:Follow-upStart: 09-04-2024 End: 28-78-5730Esnbclpna to same day surgery uxumrd4509/04/2024 10:30 AM EDT - 09/04/2024 11:30 AM EDT Surgery Admitting [address] [phone] James Enamorado MD [address] [place] [address] THORACENTESIS NEEDLE OR CATHETER ASPIRATION OF THE PLEURAL SPACE W IMAGING GUIDANCEAdmittingComment on above:THORACENTESIS NEEDLE OR CATHETER ASPIRATION OF THE PLEURAL SPACE W IMAGING GUIDANCEStart: 09-04-2024 Subsequent hospital visit by msgactlrl22/21/2025 10:30 AM EDT Hospital Encounter Admitting [address] [phone] James Enamorado MD [address] [facility] [place] [phone] Bronchio lar disease [J98.09]AdmittingComment on above: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]Start: 09-04-2024 End: 54-52-3258Uqxnkuacuqjda needle/cath pleura w/imagingMC PULM LAB O72Wqnov: 09-01-2024 End: 82-78-0201Gllpwrqarxeac metabolic 2000 panel - Serum or PlasmaCOMPREHENSIVE METABOLIC PANEL Lab Routine Recurrent pleural effusion on right Expected: 09/01/2024,Expires: 12/01/2024P JOSE ANTONIO HOPPER MD [facility] Work Phone: comment on above:Expected: 09/01/2024, Expires: 12/01/2024Start: 09-01-2024 End: 16-63-8142Rbpsxcnbf [Mass/volume] in Serum or PlasmaMAGNESIUM Lab Routine Recurrent pleural effusion on right Expected: 09/01/2024, Expires: 12/01/2024 [facility] CenterComment on above:Expected: 09/01/2024, Expires: 12/01/2024Start: 08-28-2024 End: 98-25-9049Wdyvwqsubnf [Units/volume] in Serum or PlasmaCP JOSE ANTONIO HOPPER MD [facility] Work Phone: comment on above:Expected: 08/28/2024, Expires: 11/27/2024Start: 08-27-2024 End: 71-69-5655Fmqnkra encounter procedureNOMS SWS DERMComment on above:Arrived Start: 08-24-2024 End: 87-66-2226Gvubnldmbtqpb metabolic 2000 panel - Serum or PlasmaTrinity Health System [facility] City Medical CenterComment on above:Expected: 08/24/2024, Expires: 11/23/2024Start: 08-24-2024 End: 03-49-8695Udocaxfbn [Mass/volume] in Serum or PlasmaTrinity Health System [facility] City Medical CenterComment on above:Expected: 08/24/2024, Expires: 11/23/2024Start: 08-24-2024 End: 48-73-5659Twomfslewic [Units/volume] in Serum or PlasmaThe [facility] Work Phone: Comment on above:Expected: 08/24/2024, Expires: 11/23/2024Start: 08-24-2024 End: 89-28-1588Tqetogp encounter fotbdpkvi57/10/2025 11:00 AM EDT Office Visit Gastroenterology [address] [id number] Sue Terrell MD [address] [place] [address] DiarrheaGastroenterologyComment on above:DiarrheaStart: 08-21-2024 End: 79-64-7147Mryzx metabolic 2000 panel - Serum or PlasmaBASIC METABOLIC PANEL Lab Routine Recurrent pleural effusion on right Expected: 08/21/2024, Expires: 11/20/2024P JOSE ANTONIO HOPPER MD [facility] Work Phone: comment on above:Expected: 08/21/2024, Expires: 11/20/2024Start: 08-18-2024 End: 78-38-7885Kfqibhs encounter uhtubnsfp13/04/2025 2:00 PM EST Office Visit [facility] [address] [id number] Della Barragan, MARKETING SERVICES COORDINATOR.SEO SPECIALIST [address] [place] [address] Pleural EffusionThoracic ClinicComment on above:Pleural EffusionStart: 08-13-2024 End: 20-79-3023Kcutwat encounter /27/2025 9:30 AM EST Appointment Radiology [address] [place] [address] CHEST XR RadiologyComment on above:CHEST XRStart: 08-12-2024 End: 67-80-9216Iurwjti encounter dbyulpomm06/26/2025 3:00 PM EST Office Visit [facility] [address] [place] [address] Anne-Marie Bajwa DO [address] [place] [address] ArrivedNOMS NB OPHTComment on above:ArrivedStart: 07-28-2024 End: 88-45-9646Bimdqrjsm [Mass/volume] in Serum or PlasmaMAGNESIUM Lab Routine Hypomagnesemia Expected: 07/28/2024, Expires: 10/27/2024[facility] ClinicComment on above:Expected: 07/28/2024, Expires: 10/27/2024Start: 07-24-2024 End: 729035-kfntvpwdtislcc D3 [Mass/volume] in Serum or PlasmaVITAMIN D 25 HYDROXY Lab Routine Fatigue, unspecified type Expected: 07/24/2024, Expires: 10/23/2024[facility] ClinicComment on above:Expected: 07/24/2024, Expires: 10/23/2024Start: 07-24-2024 End: 28-10-6633Xeodogwly (Vitamin B12) [Mass/volume] in Serum or PlasmaVITAMIN B12 Lab Routine Fatigue, unspecified type Expected: 07/24/2024, Expires: 10/23/2024P JOSE ANTONIO HOPPER MD [facility] Work Phone: comment on above:Expected: 07/24/2024, Expires: 10/23/2024Start: 07-24-2024 End: 82-15-4946Bdkraewy [Mass/volume] in Serum or PlasmaCORTISOL, SERUM Lab Routine Fatigue, unspecified type Expected: 07/24/2024, Expires: 10/23/2024 [facility] CenterComment on above:Expected: 07/24/2024, Expires: 10/23/2024Start: 07-21-2024 End: 73-72-7744Eiggo metabolic 2000 panel - Serum or PlasmaBASIC METABOLIC PANEL Lab Routine Anasarca Expected: 07/21/2024, Expires: 10/20/2024P JOSE ANTONIO HOPPER MD [facility] Work Phone: comment on above:Expected: 07/21/2024, Expires: 10/20/2024Start: 07-21-2024 End: 11-00-0504Zyysyrl encounter vlmssonog32/04/2025 2:00 PM EST Office [place] [address] [place], [place] [phone] [place] [address] [place] [address] Follow-upVjuan francisco Hopper MDComment on above:Follow-upStart: 07-20-2024 End: 47-55-2548CO Chest AP right lateral-decubitusXR CHEST 1V DECUBITUS RIGHT Radiology Routine Pleural effusion Expected: 07/20/2024, Expires: 08/19/2025 [facility] CenterComment on above:Expected: 07/20/2024, Expires: 08/19/2025Start: 07-20-2024 End: 01-67-4156HR Chest PA and LateralXR CHEST 2V FRONTAL/LAT Radiology Routine Pleural effusion Expected: 07/20/2024, Expires: 08/19/2025[facility] Work Phone: Comment on above:Expected: 07/20/2024, Expires: 08/19/2025Start: 07-20-2024 End: 71-42-5942Ujzzoua encounter bfiyocplt74/03/2025 1:00 PM EST Office Visit Pulmonary Medicine [address] [place], [place] [phone] Triston Riggs MD [address] [place] [address] Katerina Contreras PA-C [address] [place] [address] H&P Established PatientPulmonary Medicine Comment on above:H&P Established PatientStart: 06-22-2024 End: 28-92-4674VXEW FLUID CELL COUNTBODY FLUID CELL COUNT Lab Routine Pleural effusion Pleuritis Lymphocytic colitis Pericardial effusion (noninflammatory) Interstitial pulmonary disease (HCC) Expected: 06/22/2024, Expires: 09/21/2024 [facility] CenterComment on above:Expected: 06/22/2024, Expires: 09/21/2024Start: 06-22-2024 End: 40-69-3416BGFZ CYTOMETRY FOR LEUKEMIA/LYMPHOMA (FCLL)FLOW CYTOMETRY FOR LEUKEMIA/LYMPHOMA (FCLL) Lab Routine Pleural effusion Pleuritis Lymphocytic colitis Pericardial effusion (noninflammatory) Interstitial pulmonary disease (HCC) Expected: 06/22/2024, Expires: 09/21/2024[facility] ClinicComment on above: Expected: 06/22/2024, Expires: 09/21/2024Start: 06-22-2024 End: 90-83-2036Vgvbrzt [Mass/volume] in Body fluidGLUCOSE, BODY FLUID Lab Routine Pleural effusion Pleuritis Lymphocytic colitis Pericardial effusion (noninflammatory) Interstitial pulmonary disease (HCC) Expected: 06/22/2024, Expires: 09/21/2024[facility] ClinicComment on above:Expected: 06/22/2024, Expires: 09/21/2024Start: 06-22-2024 End: 02-52-3546Qhjqdoh dehydrogenase [Enzymatic activity/volume] in Body fluid LACTATE DEHYDROGENASE, BODY FLUID Lab Routine Pleural effusion Pleuritis Lymphocytic colitis Pericardial effusion (noninflammatory) Interstitial pulmonary disease (HCC) Expected: 06/22/2024, Expires:09/21/2024[facility] Comment on above:Expected: 06/22/2024, Expires: 09/21/2024Start: 06-22-2024 End: 89-90-6595Llhtnzubigwxi needle/cath pleura w/imagingTHORACENTESIS NEEDLE OR CATHETER ASPIRATION OF THE PLEURAL SPACE W IMAGING GUIDANCE Bronchiolar disease 06/22/2024 10:15 AM [facility] P[facility]M [facility] H73Hcqik: 06-22-2024 End: 16-99-9247Oftzgzj encounter wogipkmjq93/06/2025 9:00 AM EST Office Visit Pulmonary Medicine [address] [address] Triston Riggs MD [address] [place], [place] [phone] NPVPulmonary MedicineComment on above:NPVStart: 34-48-6215Yfnxtwj Directive DiscussionAdvance Directive DiscussionGreen Cross Hospitaltart: 01-01-2025Medicare Advantage Annual Wellness VisitMedicare Advantage Annual Wellness VisitGreen Cross Hospitaltart: 06-12-2024 End: 70-96-4906Pgborfp encounter voflhrepd73/27/2024 1:30 PM EST [place] [address] [place] [address] [place] [address] [place] [address] Follow-upVjuan francisco Hopper MDComment on above:Follow-upStart: 06-01-2024 End: 56-73-5845Vhrqsbz encounter yliwrpnzj83/16/2024 12:30 PM EST Office Visit Rheumatology [address] [address] Steffen Mccarty MD [address] [place] [address] 2mo f/uRheumatologyComment on above:2mo f/uStart: 05-26-2024 End: 43-40-7648Oxtfkre encounter cbudlnquk74/10/2024 4:30 PM EST Office Visit Gastroenterology [address] [address] Sue Terrell MD [address] [place] [address] Diarrhea Follow UpGastroenterologyComment on above:Diarrhea Follow Up Start: 05-20-2024 End: 25-07-0184Xullb metabolic 2000 panel - Serum or PlasmaBASIC METABOLIC PANEL Lab Routine Recurrent pleural effusion on right Anasarca Expected: 05/20/2024, Expires: 08/19/2024P [facility]TONIO [facility]PER [facility] Work Phone: comment on above:Expected: 05/20/2024, Expires: 08/19/2024Start: 05-19-2024 End: 62-87-0740Ypmmmab encounter dpyzywesm46/03/2024 11:30 AM EST Office [place] [address] [place] [address] [place] [address] [place], [place] [address] Follow-upJose Antonio Hopper MDComment on above:Follow-upStart: 05-18-2024 End: 86-32-8333Azesgyqm identified in Body fluid by CultureBODY FLUID CULTURE AND GRAM STAIN Microbiology Routine Pleural effusion Expected: 05/18/2024, Expires: 08/17/2024[facility] ClinicComment on above:Expected: 05/18/2024, Expires: 08/17/2024Start: 05-18-2024 End: 81-20-6184IBPAPSAM NON-GYNSalt Lake City ClinicComment on above:Expected: 05/18/2024, Expires: 08/17/2024Start: 05-18-2024 End: 55-31-5801OKAOW ACIDS PROFILE, ESSENTIALThe [facility] Work Phone: Comment on above:Expected: 05/18/2024, Expires: 08/17/2024Start: 05-18-2024 End: 47-66-6413FTQX CYTOMETRY FOR LEUKEMIA/LYMPHOMA (FCLL)[facility] Comment on above:Expected: 05/18/2024, Expires: 08/17/2024Start: 05-18-2024 End: 08-19-2367Ptopqzlbgsruf identified in Unspecified specimen by CultureAFB CULT + STAIN Microbiology Routine Pleural effusion Expected: 05/18/2024, Expires: 08/17/2024[facility] ClinicComment on above:Expected: 05/18/2024, Expires: 08/17/2024Start: 05-18-2024 End: 54-31-1718Gnmzcdo encounter edetbnhdf61/02/2024 10:40 AM EST Office Visit Pulmonary Medicine [address] [place] [address] Louise Cesar MD [address] [place] [address] follow upPulmonary MedicineComment on above:follow upStart: 05-13-2024 End: 49-57-4112Uimnfvh encounter eskrjgyfe99/27/2024 11:30 AM EST Office [place] [address] [address] [place] [address] [place] [address] Follow-upJose Antonio Hopper MDComment on above:Follow-upStart: 04-28-2024 End: 03-90-8307Isaqdzk encounter procedureTr[facility] Endoscopy Center SheffieldComment on above:Diarrhea, unspecified type [R19.7]Start: 04-20-2024 End: 83-27-6659Vqfoyfoxzw mwcwxuvarhcl53/04/2024 11:59 PM EST Anesthesia Event [facility] Endoscopy [facility] [address] [place] [address] Silvino Henley APRN.CRNATrinity Health System [facility] HospitalStart: 04-20-2024 End: 45-24-7422Lgliwsw encounter pfytxlmhp95/04/2024 12:00 PM EST Office Visit Gastroenterology [address] [address] Sue Terrell MD [address] [place] [address] Diarrhea, unspecified type [R19.7]GastroenterologyComment on above: Diarrhea, unspecified type [R19.7]Start: 04-13-2024 End: 99-39-6267Pangtlf encounter skjtalvyb79/28/2024 11:00 AM EDT Office Visit Rheumatology [address] [phone] Steffen Mccarty MD [address] [place] [address] J90 (ICD-10-CM) - Pleural effusionRheumatologyComment on above:J90 (ICD-10-CM) - Pleural effusionStart: 03-30-2024 End: 21-25-3649Bcqphaq encounter pyvvytjim84/14/2024 9:30 AM EDT Office Visit Rheumatology [address] [address] Steffen Mccarty MD [address] [place] [address] J90 (ICD-10-CM) - Pleural effusionRheumatologyComment on above:J90 (ICD-10-CM) - Pleural effusionStart: 03-26-2024 End: 79-23-6057Ybeckii encounter qlmjnybvs85/10/2024 2:30 PM EDT Appointment Cardiovascular Testing [address] [place] [address] Pericarditis, unspecified chronicity, unspecified type [I31.9]Cardiovascular TestingComment on above:Pericarditis, unspecified chronicity, unspecified type [I31.9]Start: 03-17-2024 End: 67-63-2395Drqerse encounter uvolzllqr40/01/2024 4:30 PM EDT Appointment Radiology [address] [place] [address] Interstitial pulmonary disease (HCC) [J84.9]RadiologyComment on above:Interstitial pulmonary disease (HCC) [J84.9]Start: 03-17-2024 End: 69-79-2804Gazuydd encounter procedureThoracic SurgeryComment on above: Pleural effusionStart: 03-17-2024 End: 94-13-4048lvncdxfpvy07/01/2024 1:15 PM EDT Procedure Pulmonary Lab [address] [place] [address] Pleural effusion [J90]; Interstitial pulmonary disease (HCC) [J84.9]Pulmonary LabComment on above: Pleural effusion [J90]; Interstitial pulmonary disease (HCC) [J84.9]Start: 03-17-2024 End: 58-50-4995Nppfkxi encounter lujkflsaz34/01/2024 10:20 AM EDT Office Visit PULMONOLOGY [facility] [address] [place] [address] Louise Cesar MD [address] [place] [address] NEW Chronic cough pt + CXR + PFT'SPULMONOLOGY [facility] Comment on above:NEW Chronic cough pt + CXR + PFT'SStart: 03-17-2024 End: 89-31-1456Yqugiju encounter cakllnixt25/01/2024 9:15 AM EDT Appointment XRAY / RADIOLOGY [facility] [address] [place] [address] Chronic bronchitis, unspecified chronic bronchitis type (HCC) [Y89YNTN / RAD[facility]OLOGY [facility] CENTERComment on above:Chronic bronchitis, unspecified chronic bronchitis type (HCC) [Z78Tygfs: 03-17-2024 End: 86-10-8184tzpdlxzdsmHKPLMALHAUU LAB [facility]ENTERComment on above:Chronic cough [R05.3]Pleural effusion [J90]; Interstitial pulmonary disease (HCC) [J84.9]Start: 52-94-8534Mxsnn-19 Vaccine ()Covid-19 Vaccine ()[facility]: 76-81-6700Dwrzq-19 Vaccine ()Covid-19 Vaccine ()[facility]: 02-16-2024 Covid-19 Vaccine ()Covid-19 Vaccine () [facility]: 35-17-6419Yrunedouv vaccinationGreen Cross Hospitaltart: 02-12-2024 End: 48-65-0271Qmyyp metabolic 2000 panel - Serum or PlasmaBASIC METABOLIC PANEL Lab Routine Primary hypertension Expected: 02/12/2024, Expires: 05/13/2024 [facility] CenterComment on above:Expected: 02/12/2024, Expires: 05/13/2024Start: 02-12-2024 End: 06-94-9495ZYC panel - Blood by Automated countCOMPLETE BLOOD COUNT Lab Routine Primary hypertension Anemia, unspecified type Expected: 02/12/2024, Expires: 05/13/2024P JOSE ANTONIO HOPPER MD [facility] Work Phone: comment on above:Expected: 02/12/2024, Expires: 05/13/2024Start: 02-12-2024 End: 54-17-1561Rczbmknoz [Mass/volume] in Serum or PlasmaMAGNESIUM Lab Routine Primary hypertension Hypomagnesemia Expected: 02/12/2024, Expires: 05/13/2024 [facility] CenterComment on above:Expected: 02/12/2024, Expires: 05/13/2024Start: 02-12-2024 End: 88-19-2076Ptobpdx encounter qobovngcv87/28/2024 1:30 PM EDT [place] [address] [facility] [address] [place] [address] [place] [address] [place], [place] [phone] follow up from arcadiaJazzmine Dial MDComment on above:follow up from [facility]art: 02-12-2024 End: 46-62-9777Onxecfu encounter jmdmywiro05/28/2024 10:45 AM EDT [place] [address] [place] [address] [place] [address] [place] [address] Follow-upVjuan francisco Hopper MDComment on above:Follow-upStart: 02-04-2024 End: 45-06-7389Ibbwvuk encounter procedureRADIO [facility]AL [facility] MCComment on above:Recurrent pleural effusion on right [J90]Start: 01-15-2024 End: 24-16-3323Nbjhf metabolic 2000 panel - Serum or PlasmaBASIC METABOLIC PANEL Lab Routine Recurrent pleural effusion on right Expected: 01/15/2024, Expires: 04/15/2024P [facility]IO [facility] Work Phone: comment on above:Expected: 01/15/2024, Expires: 04/15/2024Start: 01-15-2024 End: 29-57-8033Ijruajh encounter mrupbiaov72/31/2024 1:00 PM EDT [place] [address] [place] [address] [place] [address] [place] [address] New PatientVjuan fracnisco Hopper MDComment on above:New Patient Start: 01-06-2024 End: 97-62-5258Mollveb encounter procedureRADIO GENERAL [facility]ILLCREST HOSPComment on above:Recurrent pleural effusion on right [J90]Start: 12-20-2023 End: 23-11-9606Mkxmcpy encounter procedureRADIO GENERAL HILLCREST HOSPComment on above:Pleural effusionStart: 12-13-2023 End: 92-43-4493Ujhmupl encounter procedureRADIO GENERAL HILLCREST HOSPComment on above:Pleural effusion [J90]Pleural effusionStart: 12-04-2023 End: 50-87-5415Lwdbdbg encounter procedureRADIO GENERAL HILLCREST HOSPComment on above:Discharge follow upStart: 12-03-2023 End: 64-13-6359Olencqw encounter procedureRADIO GENERAL HILLCREST MOBComment on above:Pleural effusionStart: 12-01-2023 End: 32-08-8267TR Chest PA and LateralXR CHEST 2V FRONTAL/LAT Radiology Routine Surgery follow-up Expected: 12/01/2023, Expires: 12/23/2024[facility] Work Phone: Comment on above:Expected: 12/01/2023, Expires: 12/23/2024Start: 11-20-2023 End: 17-77-6305Aarfftbay to same day surgery xyfhkr8611/20/2023 5:43 PM EDT - 11/20/2023 9:17 PM EDT Surgery Admitting [address] [place] [address] Ronaldo Flood MD, PhD [address] [phone] THORACOSCOPY WITH PLEURAL ABRASION AdmittingComment on above:THORACOSCOPY WITH PLEURAL ABRASIONStart: 11-20-2023 Subsequent hospital visit by /05/2024 5:43 PM EDT Hospital Encounter Admitting [address] [place] [address] Ronaldo Flood MD, PhD [address] [address] Pleural effusion [J90]AdmittingComment on above:Pleural effusion [J90]Start: 11-20-2023 End: 28-77-0955Ijdihuvdrymr w/dx bx of lung infiltrate unilatrlTHORACOSCOPY W/ DIAGNOSTIC BIOPSY(IES) OF LUNG NODULE(S) OR MASS(ES) UNILATERAL Pleural effusion Encounter for other preprocedural examination 11/20/2023 5:[address] [facility]: 11-20-2023 End: 74-84-9756Bsssdxizoxwd w/pleurodesisTHORACOSCOPY WITH PLEURAL ABRASION Pleural effusion Encounter for other preprocedural examination 11/20/2023 5:[address] [facility] VASStart: 11-20-2023 End: 36-60-3387Jdmwlatry to same day surgery lmojnx5111/20/2023 11:30 AM EDT - 11/20/2023 3:04 PM EDT Surgery Admitting [address] [place], [place] Ronaldo Flood MD, PhD [address] [phone] THORACOSCOPY WITH PLEURAL ABRASION AdmittingComment on above:THORACOSCOPY WITH PLEURAL ABRASIONStart: 11-20-2023 Subsequent hospital visit by mxpleoyfw11/05/2024 11:30 AM EDT Hospital Encounter Admitting [address] [place] [address] Ronaldo Flood MD, PhD [address] [address] Pleural effusion [J90]AdmittingComment on above:Pleural effusion [J90]Start: 11-20-2023 End: 86-61-1566Sgwoxmphfjyy w/dx bx of lung infiltrate unilatrlTHORACOSCOPY W/ DIAGNOSTIC BIOPSY(IES) OF LUNG NODULE(S) OR MASS(ES) UNILATERAL Pleural effusion Encounter for other preprocedural examination 11/20/2023 11:[address] [facility] VASStart: 11-20-2023 End: 07-79-8236Kohrqwnyhiiz w/pleurodesisTHORACOSCOPY WITH PLEURAL ABRASION Pleural effusion Encounter for other preprocedural examination 11/20/2023 11:[address] [address] [facility] VASStart: 11-12-2023 End: 88-23-1325qluhupcyabExtgtmhvd MedicineComment on above:Pleural effusion [J90]Start: 11-12-2023 End: 66-49-1050Dhyzbov encounter procedureRadiologyComment on above:PRE-OP Pleural effusion [J90]-or- SM 11/20/23AnesthesiaStart: 11-12-2023 End: 08-33-8871wwsbsbasjbHmxmbutnlfQbosrpu on above:PRE-OPStart: 10-28-2023 End: 51-99-3161bWKV in Platelet poor plasma by Coagulation assayACTIVATED PARTIAL THROMBOPLASTIN TIME Lab STAT Pleural effusion Encounter for other preprocedural examination Expected: 10/28/2023, Expires: 10/23/2024[facility] ClinicComment on above:Expected: 10/28/2023, Expires: 10/23/2024Start: 10-28-2023 End: 67-41-2847MXD W Auto Differential panel - BloodCOMPLETE BLOOD COUNT AND DIFFERENTIAL Lab STAT Pleural effusion Encounter for other preprocedural ex amination Expected: 10/28/2023, Expires: 10/23/2024[facility] ClinicComment on above:Expected: 10/28/2023, Expires: 10/23/2024Start: 10-28-2023 End: 28-13-8237Fqpqnebxtfhjp metabolic 2000 panel - Serum or PlasmaCOMPREHENSIVE METABOLIC PANEL Lab STAT Pleural effusion Encounter for other preprocedural examination Expected: 10/28/2023, Expires: 10/23/2024[facility] ClinicComment on above:Expected: 10/28/2023, Expires: 10/23/2024Start: 10-28-2023 End: 30-10-3642BRXBJGX BLOOD TYPECONFIRM BLOOD TYPE Blood Bank STAT Pleural effusion Encounter for other preprocedural examination Expected: 10/28/2023, Expires: 10/23/2024[facility] ClinicComment on above:Expected: 10/28/2023, Expires: 10/23/2024Start: 10-28-2023 End: 56-96-1127WDS COMPLETEECG COMPLETE ECG STAT Pleural effusion Encounter for other preprocedural examination Expected: 10/28/2023, Expires: 10/23/2024 [facility] CenterComment on above:Expected: 10/28/2023, Expires: 10/23/2024Start: 10-28-2023 End: 43-38-5784ZSED DIFFUSION CAPACITY (DLCO)LUNG DIFFUSION CAPACITY (DLCO) PFT STAT Pleural effusion Encounter for other preprocedural examination Expected: 10/28/2023, Expires: 11/22/2024[facility] CenterComment on above:Expected: 10/28/2023, Expires: 11/22/2024Start: 10-28-2023 End: 67-93-4450PN Heart Perfusion W multiple states of exerciseNM CARDIAC PERF STRESS/EXERCISE Radiology STAT Pleural effusion Encounter for other preprocedural examination Expected: 10/28/2023, Expires: 11/22/2024[facility] CenterComment on above:Expected: 10/28/2023, Expires: 11/22/2024Start: 10-28-2023 End: 44-37-0812WL panel - Platelet poor plasma by Coagulation assayPROTHROMBIN TIME Lab STAT Pleural effusion Encounter for other preprocedural examination Expected: 10/28/2023, Expires: 10/23/2024[facility] CenterComment on above: Expected: 10/28/2023, Expires: 10/23/2024Start: 10-28-2023 End: 51-43-3883ZFYDBZXARC WITH DILATOR IF OBSTRUCTEDSPIROMETRY WITH DILATOR IF OBSTRUCTED PFT STAT Pleural effusion Encounter for other preprocedural ex amination Expected: 10/28/2023, Expires: 11/22/2024[facility] Work Phone: Comment on above:Expected: 10/28/2023, Expires: 11/22/2024Start: 10-28-2023 End: 99-75-5179OMWAEEEVZBCFQZ AUREUS & MRSA SCREEN, PCR, NASALSTAPHYLOCOCCUS AUREUS & MRSA SCREEN, PCR, NASAL Lab STAT Pleural effusion Encounter for other preprocedural examination Expected: 10/28/2023, Expires: 01/27/2024[facility] ClinicComment on above:Expected: 10/28/2023, Expires: 01/27/2024Start: 10-28-2023 End: 75-95-8437RLOM AND SCREEN,30 DAYTYPE AND SCREEN,30 DAY Blood Bank STAT Pleural effusion Encounter for other preprocedural examination Expected: 10/28/2023, Expires: 10/23/2024[facility] ClinicComment on above:Expected: 10/28/2023, Expires: 10/23/2024Start: 10-28-2023 End: 55-64-7286MSBBJVESFR, DIPSTICK ONLYURINALYSIS, DIPSTICK ONLY Lab STAT Pleural effusion Encounter for other preprocedural examination Expected: 10/28/2023, Expires: 10/23/2024[facility] ClinicComment on above:Expected: 10/28/2023, Expires: 10/23/2024Start: 10-28-2023 End: 92-14-3694LD Chest PA and LateralXR CHEST 2V FRONTAL/LAT Radiology STAT Pleural effusion Encounter for other preprocedural examination Expected: 10/28/2023, Expires: 11/22/2024[facility] ClinicComment on above:Expected: 10/28/2023, Expires: 11/22/2024Start: 10-24-2023 End: 96-78-9117Eoaitaj encounter eimofadzm92/09/2024 12:00 PM EDT Office Visit Thoracic Clinic [address] [place] [address] Ronaldo Flood MD, PhD [address] [facility] [address] [place] [address] pleural effusionThoracic ClinicComment on above: pleural effusionStart: 52-44-1256Zvrs Fast CultureAcid Fast CultureCleveland Clinic Mentor Hospitaltart: 84-06-9893Lqfg Fast CultureAcid Fast Culture [facility]: 23-26-8296Gubvabc Directive Discussion Advance Directive DiscussionGreen Cross Hospitaltart: 52-75-1759Hxeshjuthz Health ScreeningBehavioral Health ScreeningGreen Cross Hospitaltart: 05-39-0528TZQZK-19 Vaccine ( season)COVID-19 Vaccine ( season)[facility] Start: 48-85-5379Jmfxb-19 Vaccine ( season)Covid-19 Vaccine ( season)[facility]: 51-47-0839Ximluluwm vaccinationOhPomerene Hospital Start: 02-11-2023 End: 68-40-0678Buysmbb encounter biwrvobuz83/28/2023 1:15 PM EDT Office Visit [facility] [address] [place], [place] [phone] Margie Edouard, DO [address] [place] [address] [facility] SurgeonsStart: 01-14-2023 End: 89-63-2999Jwigcko encounter gyrafzmzm38/31/2023 1:15 PM EDT Office Visit [facility] [address] [place], [place] [phone] Margie Edouard, DO [address] [place] [address] [facility] SurgeonsStart: 11-19-2022 End: 53-46-0282Tsnkalo encounter erupccjwm82/05/2023 1:30 PM EDT Office Visit [facility] [address] [place], [place] [phone] Margie Edouard, DO [address] [place] [address] [facility] SurgeonsStart: 10-08-2022 End: 39-78-0699Axpqydx encounter hpmqvdoql12/24/2023 Office Visit Orthopedic Surgery Margie Edouard, DO [address] [place] [address] [facility] SurgeonsStart: 02-15-2022 Influenza vaccinationSequential Influenza Vaccine (#1)[facility]: 64-66-0832NZKBF-19 Vaccine (4 - Booster for Pfizer series)COVID-19 Vaccine (4 - Booster for Pfizer series)[facility]: 35-48-4481KYGTO-19 Vaccine (4 - Pfizer series)COVID-19 Vaccine (4 - Pfizer series)[facility]: 07-05-2021 COVID-19 Vaccine (5 - Booster)COVID-19 Vaccine (5 - Booster)[facility]: 88-93-8664Ulivsgevh vaccinationSequential Influenza Vaccine (#1)[facility]: 07-01-[facility] End: 47-16-4760Bvmyrh Visit07/01/2020 Office Visit Orthopedic Surgery Nena Huff, [address] [place] [address] [facility]: 65-10-5029Ibzzzofum vaccination given Sequential Influenza Vaccine (#1)[facility]: 11-67-4159Xzzjainlgx46/14/2020 Office Visit Orthopedic Surgery Karthik Calloway MD [address] [place] [address] [facility] Start: 24-63-3433Poaetzklx vaccination givenSEQUENTIAL INFLUENZA VACCINE (#1) [facility]: 02-81-6547Ztwmkubzytavqe of herpes zoster vaccineZoster Vaccines (2 of 2)[facility]: 93-45-1896Kmbpbkmp Vaccine (2 of 2)Shingrix Vaccine (2 of 2)Green [facility]: 79-48-6850Onhna microalbumin profile DTaP,Tdap,Td Vaccine (1 - Tdap)[facility]: 58-39-0471Weqymoocws 07/30/2017 Office Visit Orthopedic Surgery Karthik Calloawy MD [address] [facility] [address] [address] [facility] Orthopedic SurgeonsStart: 52-96-7107Dbrgvuopr vaccinationSEQUENTIAL INFLUENZA VACCINE (#1)[facility] Work Phone: Start: 63-66-4827IVDTZOVMVA INFLUENZA VACCINE (#1) SEQUENTIAL INFLUENZA VACCINE (#1)[facility] Work Phone: Start: 19-82-9006Dxbk risk assessmentFalls Risk AssessmentOhioHealthStart: 86-48-9529Gayvdgtczxkk vaccinationPNEUMOCOCCAL VACCINE AGE 65+ (1 of 2 - PCV13)[facility] Work Phone: Start: 54-55-8613SJVJYCYLUWPE VACCINE AGE 65+ (1 of 2 - PCV13)PNEUMOCOCCAL VACCINE AGE 65+ (1 of 2 - PCV13)[facility] Work Phone: Start: 21-13-8300Koilhytel B Vaccine (1 of 3 - Risk 3- dose series)Hepatitis B Vaccine (1 of 3 - Risk 3-dose series)[facility] Start: 44-48-1541WWW Vaccine (1 - 1-dose 60+ series)RSV Vaccine (1 - 1-dose 60+ series)[facility]: 24-79-0772BBX Vaccine (1 - Risk 60-74 years 1-dose series)RSV Vaccine (1 - Risk 60-74 years 1-dose series)[facility]: 26-84-2853Ebvoar vacc, scZOSTER VACCINEOhPomerene Hospital Work Phone: Start: 89-38-2959Fiuhvkmdf for malignant neoplasm of colonOhioMercy Health Clermont HospitalStart: 08-86-0292Gradyswr ScreeningDiabetes ScreeningGreen Cross Hospitaltart: 06-99-7151Ekgczkspi for malignant neoplasm of colonTrinity Health System [facility] Start: 08-64-1675Wfluw panelLipid ScreeningGreen Cross Hospitaltart: 1969 Hepatitis A Vaccine (1 of 2 - Risk 2-dose series)Hepatitis A Vaccine (1 of 2 - Risk 2-dose series)[facility]: 72-39-4249Mowui microalbumin profile DTaP,Tdap,Td Vaccine (1 - Tdap)[facility]: 63-94-9899Zlqnhe PCP Team Chronic Disease VisitAnnual PCP Team Chronic Disease VisitGreen Cross Hospitaltart: 53-97-7152Qmbowtd ScreeningAnxiety ScreeningGreen Cross Hospitaltart: 63-43-0262OG Controlled (<130/80)BP Controlled (<130/80)[facility]: 1969 Depression ScreeningDepression ScreeningGreen Cross Hospitaltart: 1969 Hepatitis C antibody, confirmatory testHepatitis C ScreeningOhioHealthStart: 90-00-6459Tclhhmkki C screeningHepatitis C ScreeningOhioHealthStart: 1967 COVID-19 Vaccine (1 of 2)COVID-19 Vaccine (1 of 2)[facility] Adolescent depression screening assessmentDepression Screening (PHQ9)[facility] Start: 12-11-2914Ovkmjyeszd screening using PHQ-9 (Patient Health Questionnaire 9) scoreOhioHealthStart: 30-78-0184MFDFJ-19 Vaccine (1)COVID-19 Vaccine (1) [facility]: 56-29-4927Ycukura and physical examination, annual for [facility] VisitOhioHealthStart: 09-27-1954Medicare Wellness Visit Medicare Wellness VisitOhioHealthStart: 66-38-2788YeuzmckjverFLPLGMLBPDS [facility] Work Phone: Start: 17-72-5895Cgud risk assessmentFalls Risk AssessmentOhioHealthStart: 44-99-7443Nerntiikw C antibody, confirmatory test HEPATITIS C SCREENINGOhioHealthStart: 92-74-7595Inxwlkpe specific antigen measurementPSA LevelOhioHealthStart: 26-34-8802Savbuuket for malignant neoplasm of colonOhioHealthStart: 14-50-0821DWVOYNA EVERY 10 YRTETANUS EVERY 10 YR [facility] Work Phone: Start: 1950 End: 65-63-0015UKUWMNMJQ C SCREENINGHEPATITIS C SCREENINGOhPomerene Hospital Work Phone: Start: 13-94-6618Buexzbmxp colonoscopyCOLONOSCOPY [facility] Work Phone: Start: 1950 End: 72-00-2592Kckssxr vaccinationOhioHealthAlbumin [Mass/volume] in Body fluid ALBUMIN, BODY FLUID Lab Routine Pleural effusion Ordered: 5[facility] ClinicComment on above:Ordered: 07/20/2024lbumin [Mass/volume] in Body fluid ALBUMIN, BODY FLUID Lab Routine Pleural effusion Ordered: 07/20/2024[facility] ClinicComment on above:Ordered: 07/20/2024ODY FLUID CELL COUNTBODY FLUID CELL COUNT Lab Routine Pleural effusion Ordered: 07/20/2024[facility] ClinicComment on above:Ordered: 07/20/2024omprehensive metabolic 1999 panel - Serum or Plasma [facility] HospitalComprehensive metabolic 1999 panel - Serum or PlasmaMemorial Health System Marietta Memorial HospitalCT Chest W contrast [facility] End: 89-04-6998KU Chest W contrast IVCT CHEST W IVCON Radiology Routine Interstitial pulmonary disease (HCC) 1 Occurrences starting 03/17/2024 until 04/16/2025[facility] Work Phone: Comment on above:1 Occurrences starting 03/17/2024 until 04/16/2025T Chest W contrast IVCT CHEST W IVCON Radiology Routine Interstitial pulmonary disease (HCC) 03/17/2024 4:02 PM [facility] End: 00-35-3586YA Chest WO contrastCT CHEST WO IVCON Radiology Routine Pleural effusion Lung nodule 1 Occurrences starting 05/18/2024 until 06/17/2025leveland ClinicComment on above:1 Occurrences starting 05/18/2024 until 06/17/2025 End: 37-30-9786RO Small bowel W contrast PO and W contrast IVCT ENTEROGRAPHY W IVCON Radiology Routine Other ascites Generalized abdominal pain 1 Occurrences starting 10/21/2024 until 11/20/2025[facility] ClinicComment on above:1 Occurrences starting 10/21/2024 until 11/20/2025 End: 72-40-9707NejlglsgpepbexswSZAY Cardiology Routine Pericarditis, unspecified chronicity, unspecified type 1 Occurrences starting 03/17/2024 until 03/17/2025 [facility] CenterComment on above:1 Occurrences starting 03/17/2024 until 03/17/2025 End: 75-91-4603VRZ DIAGNOSTICEGD DIAGNOSTIC Endoscopy Routine Diarrhea, unspecified type 1 Occurrences starting 04/20/2024 until04/20/2025[facility]and [facility] Work Phone: Comment on above:1 Occurrences starting 04/20/2024 until 04/20/2025 End: 72-89-5282IGS DIAGNOSTICEGD DIAGNOSTIC Endoscopy Routine Esophageal dysphagia 1 Occurrences starting 08/24/2024 until 08/24/2025[facility] Comment on above:1 Occurrences starting 08/24/2024 until 08/24/2025FAT, FECAL QUALFAT, FECAL QUAL Lab Routine Other ascites Generalized abdominal pain Ordered: [address] [place] [address] Work Phone: Comment on above:Ordered: 10/21/2024 End: 76-33-0861Klkjfjuf sigmoidoscopy studyCOLONOSCOPY DIAGNOSTIC Endoscopy Routine Diarrhea, unspecified type 1 Occurrences starting 04/20/[address] [place], [place] [address]Comment on above:1 Occurrences starting 04/20/2024 until 04/20/2025FLOW CYTOMETRY FOR LEUKEMIA/LYMPHOMA (FCLL) PERFORMABLEFLOW CYTOMETRY FOR LEUKEMIA/LYMPHOMA (FCLL) PERFORMABLE Lab Routine Pleural effusion 05/18/2024 12:52 PM [facility] FOR LEUKEMIA/LYMPHOMA (FCLL) PERFORMABLEFLOW CYTOMETRY FOR LEUKEMIA/LYMPHOMA (FCLL) PERFORMABLE Lab Routine Pleural effusion Pleuritis Lymphocytic colitis Pericardial effusion (noninflammatory) Interstitial pulmonary disease (HCC) Ordered:06/22/2024 [facility] CenterComment on above:Ordered: 06/22/2024Lactate dehydrogenase [Enzymatic activity/volume] in Body fluidLACTATE DEHYDROGENASE, BODY FLUID Lab Routine Pleural effusion Ordered: [address] [place] [address] Work Phone: Comment on above:Ordered: 07/20/2024Lactate dehydrogenase [Enzymatic activity/volume] in Body fluidLACTATE DEHYDROGENASE, BODY FLUID Lab Routine Pleural effusion Ordered: [address] [place] [address] Comment on above:Ordered: 07/20/2024 End: 69-28-3167Mzxqk stiffness by US.transient elastographyUS ELASTOGRAPHY LIVER Radiology Routine Hepatomegaly 1 Occurrences starting 11/13/2024 until 026[facility] CenterComment on above:1 Occurrences starting 11/13/2024 until 12/13/2025Liver stiffness by US.transient elastographyUS ELASTOGRAPHY LIVER Radiology Routine Hepatomegaly 11/23/2024 3:05 PM EDTCleveland ClinicMANUAL DIFFERENTIAL, BODY FLUIDMANUAL DIFFERENTIAL, BODY FLUID Lab Routine Pleural effusion 05/18/2024 12:52 PM [facility] End: 39-46-9083QXXRQI OXIDE, EXHALEDNITRIC OXIDE, EXHALED PFT Routine Chronic cough Pleural effusion 1 Occurrences starting 01/06/2024 until 02/04/2025 [facility] Work Phone: Comment on above:1 Occurrences [...] Elevated serum creatinine 10/15/2024 10:09 AM EDT [facility] Work Phone: rf Guidance for transjugular biopsy of Liver-- W contrast IVIR TRANSJUGULAR LIVER BX W/PRESS Radiology Routine Elevated alkaline phosphatase level Ordered: [address] [place] [address] Work Phone: comment on above:Ordered: 12/22/2024 End: 89-15-9658XPU MINUTE WALKSIX MINUTE WALK PFT Routine Pleural effusion Encounter for other preprocedural examination 1 Occurrences starting 10/28/2023 until 11/26/2024leveland ClinicComment on above:1 Occurrences starting 10/28/2023 until 11/26/2024 End: 06-94-3900GNEXXNXURZ WITH DILATOR IF OBSTRUCTEDSPIROMETRY WITH DILATOR IF OBSTRUCTED PFT Routine Chronic cough Pleural effusion 1 Occurrences starting 01/06/[address] [place], [place] [address]Comment on above:1 Occurrences starting 01/06/2024 until 02/04/2025SPIROMETRY WITH DILATOR IF OBSTRUCTED SPIROMETRY WITH DILATOR IF OBSTRUCTED PFT Routine Chronic cough Pleural effusion 03/17/2024 8:07 [facility]: [facility] Work Phone: comment on above:Release Upon Ordering for 1 Occurrences starting 04/28/2024, 1 completedTissue Pathology biopsy report [facility] Work Phone: Comment on above:Release Upon Ordering for 1 Occurrences starting 09/25/2024, 1 completedUA DIP, URINE (POC)UA DIP, URINE (POC) Lab Routine Screening for genitourinary condition 1 Occurrences starting [address] [place] [address] Work Phone: comment on above:1 Occurrences starting 10/15/2024 End: 38-65-5815FF Abdomen RUQUS ABD RIGHT UPPER QUADRANT Radiology Routine Elevated alkaline phosphatase level 1 Occurrences starting 10/15/[address] [place] [address] Work Phone: Comment on above:1 Occurrences starting 10/15/2024 until 11/14/2025US Abdomen RUQUS ABD RIGHT UPPER QUADRANT Radiology Routine Elevated alkaline phosphatase level 10/23/2024 2:18 PM [facility] Work Phone: End: 48-70-0052PO Abdomen RUQUS ABD RIGHT UPPER QUADRANT Radiology Routine Hepatomegaly 1 Occurrences starting 11/13/[address] [place] [address] Comment on above:1 Occurrences starting 11/13/2024 until 12/13/2025US Abdomen RUQUS ABD RIGHT UPPER QUADRANT Radiology Routine Hepatomegaly 11/23/2024 3:05 PM [facility] Work Phone: us Chest limitedUS CHEST (POC) H23 USE ONLY Imaging Diagnostic Routine Pleural effusion Pleuritis Lymphocytic colitis Pericardial effusion (noninflammatory) Interstitial pulmonary disease (HCC) Ordered: [address] [place] [address] Work Phone: Comment on above:Ordered: 06/22/2024US Heart TransthoracicMem[facility] End: 08-57-6276PS Lower extremity artery - bilateralPVR LEG [facility] Vascular Lab Routine Extremity cyanosis 1 Occurrences starting 11/20/2024 until11/20/2025 [facility] CenterComment on above:1 Occurrences starting 11/20/2024 until 11/20/2025 End: 96-90-1009SC Lower extremity veins - bilateralUS LEG VEIN DVT [facility] Vascular Lab Routine Extremity cyanosis 1 Occurrences starting 11/20/2024 until 11/20/2025[facility] CenterComment on above:1 Occurrences starting 11/20/2024 until 11/20/2025 End: 37-56-1551TD Vein - bilateralUS VENOUS INCOMPETENCY [facility] Vascular Lab Routine Extremity cyanosis 1 Occurrences starting 11/20/[address] [place] [address] Work Phone: Comment on above:1 Occurrences starting 11/20/2024 until 11/20/2025 End: 79-64-7170QY.doppler Abdominal vesselsUS ABD LIVER VASCULAR Radiology Routine Other ascites 1 Occurrences starting 02/17/2025 until 03/19/2026 [facility] Work Phone: comment on above:1 Occurrences starting 02/17/2025 until 03/19/2026 End: 43-29-1286BA.doppler Unspecified body regionUS DOPPLER COMPLETE Radiology Routine Other ascites 1 Occurrences starting 02/17/2025 until 03/19/2026 [facility] CenterComment on above:1 Occurrences starting 02/17/2025 until 03/19/2026 End: 72-97-4105HM Chest PA and LateralXR CHEST 2V FRONTAL/LAT Radiology Routine Follow-up exam 1 Occurrences starting 11/29/[address] [place] [address] Work Phone: Comment on above:1 Occurrences starting 11/29/2023 until 12/28/2024XR Chest PA and LateralXR CHEST 2V FRONTAL/LAT Radiology Routine Surgery follow-up 11/29/2023 2:19 PM [facility] Work Phone: XR Chest PA and LateralXR CHEST 2V FRONTAL/LAT Radiology Routine Follow-up exam 12/03/2023 12:25 PM [facility] Work Phone: XR Chest PA and LateralXR CHEST 2V FRONTAL/LAT Radiology Routine Pleural effusion 12/13/2023 1:18 PM [facility] Work Phone: XR Chest PA and LateralXR CHEST 2V FRONTAL/LAT Radiology Routine Pleural effusion 12/20/2023 1:13 PM [facility] Work Phone: End: 28-14-7069EJ Chest PA and LateralXR CHEST 2V FRONTAL/LAT Radiology Routine Pleural effusion 1 Occurrences starting 01/06/2024 until 02/04/2025[facility] Work Phone: Comment on above:1 Occurrences starting 01/06/2024 until 02/04/2025XR Chest PA and LateralXR CHEST 2V FRONTAL/LAT Radiology Routine Recurrent pleural effusion on right 01/06/2024 1:09 PM [facility] Work Phone: End: 00-71-9983IH Chest PA and LateralXR CHEST 2V FRONTAL/LAT Radiology Routine Pleural effusion 1 Occurrences starting 02/04/[address] [place] [address] Work Phone: Comment on above:1 Occurrences starting 02/04/2024 until 03/05/2025XR Chest PA and LateralXR CHEST 2V FRONTAL/LAT Radiology Routine Chronic bronchitis, unspecified chronic bronchitis type (HCC) 03/17/2024 8:41 AM [facility] Work Phone: End: 65-90-5615YE Chest PA and LateralXR CHEST 2V FRONTAL/LAT Radiology Routine Pleural effusion 1 Occurrences starting 10/28/2024 until 11/26/2025[facility] Work Phone: Comment on above:1 Occurrences starting 10/28/2024 until 11/26/2025[facility] Immunizations Immunization DateImmunizationNotesCare VrkwdfokXgkvebej30-22-7917okbgvqyvy, high dose seasonal, preservative-freeVyacheslav Isakov MD Work Phone: [place] Lrjolv93-19-8138haeyhmcrg, seasonal, injectableJose Antonio Hopper MD Work Phone: [place] Iorjas95-40-0557fxlrkhtypqg syncytial virus (RSV) vaccine, adjuvanted (AREXVY)Jose Antonio Hopper MD Work Phone: [place] Gfnoht62-08-2204diuptts toxoid, reduced diphtheria toxoid, and acellular pertussis vaccine, adsorbedJose Antonio Hopper MD Work Phone: [place] Urcmdw51-14-7575rxntymcui virus vaccine, unspecified formulationJose Antonio Hopper MD Work Phone: [place] Smiqyh48-49-0845UZRXZ-65 mRNA, Comirnaty (Pfizer)[facility]03-30-2021COVID-19 original vaccine, age 12+ yr, monovalent (PFIZER-BIONTECH - PURPLE TOP)Jose Antonio Hopper MD Work Phone: [place] Gditkr33-83-4595HFTKY-53 mRNA, Comirnaty (Pfizer)DO [facility] Work Phone: [facility]03-08-2021COVID-19 original vaccine, age 12+ yr, monovalent (PFIZER-BIONTECH - PURPLE TOP) Jose Antonio Hopper MD Work Phone: [place] Dekaaa07-52-8065TLQNY-49 mRNA, Comirnaty (Pfizer)DO [facility] Work Phone: [facility]11-23-2020influenza virus vaccine, split virus (incl. purified surface antigen)Yuli Mariscal Other [place] [employer] Other 11834622-20-3727jmzimyryp virus vaccine, unspecified formulationDO Sintia Clemente Work Phone: [facility]11-23-2020Seasonal trivalent influenza vaccine, adjuvanted, preservative freeJose Antonio Hopper MD Work Phone: [place] Nbhtbm13-18-2148pudadrc and diphtheria toxoids, adsorbed, preservative free, for adult use (5 Lf of tetanus toxoid and 2 Lf of diphtheria toxoid)Yuli Mariscal Other [facility]03-16-2019zoster vaccine recombinantJose Antonio Hopper MD Work Phone: [place] Pkpwpi02-50-3378ekxhbaf and diphtheria toxoids, adsorbed, preservative free, for adult use (5 Lf of tetanus toxoid and 2 Lf of diphtheria toxoid)Yuli Mariscal Other [facility]08-20-2018 pneumococcal polysaccharide vaccine, 23 valTamra Mariscal Other [facility]06-12-2017 pneumococcal conjugate vaccine, 13 valentYuli Mariscal Other [facility] Payers DatePayer CategoryPayerPolicy [id number] (Managed Care)AETNA MEDICARE [id number] 2022MedicaidAETNA MEDICARE ADVANTAGE [id number] 2016MedicareAETNA MANAGED MEDICARE AETNA MEDICARE PLAN (PPO) xxxxxxxx 2016-Presentxxxxxxxx [id number] 2016MedicareAETNA MANAGED MEDICARE AETNA MEDICARE PLAN (PPO) [id number] 2016Medicare [id number] 2016Medicare PPOAETNA MEDICARE PLAN (PPO) [id number] 1960Medicare [id number] 840.1.798999.3.57[id number] 2.16.840.1.677579.3.57[id number] 2.16.840.1.410655.3.57[id number] 2.16.840.1.239471.3.57[id number] 2.16.840.1.271338.3.57[id number] 2.16.840.1.605972.3.57[id number] 2.16.840.1.011991.3.57[id number] 2.16.840.1.077680.3.57[id number] 2.16.840.1.704548.3.57[id number] 2.16.840.1.250774.3.57[id number] 2.16.840.1.125138.3.57[id number] 2.16.840.1.969730.3.57[id number] 2.16.840.1.135053.3.57[id number] 2.16.840.1.625314.3.57[id number] 2.16.840.1.829406.3.57[id number] 2.16.840.1.396888.3.57[id number] 2..840.1.496082.3.57[id number] 2..840.1.415958.3.57[id number] 2.16.840.1.271769.3.579.2.1259MedicareMEBL4CPC 2.16.840.1.703188.3.249.13Unknown [id number] 2.16.840.1.5[id number] 2.16.840.1.2[id number] 2.16.840.1.619290.3.579.2.531 [id number] 2.840.1.228145.3.579.2.531 Social History DateTypeDetailFacilityStart: 07-30-2017 End: 13-06-3271Eifcrgi smoking status NHISNever smokerL[facility] City Hospital Work Phone: Start: 54-82-4744Rdb Assigned At BirthNot on file [facility] Work Phone: Start: 07-01-2019 End: 78-58-7152Kderlju intakeCurrent drinker of alcohol (finding)[facility] Start: 07-20-2020 End: 85-35-8483Tshelua use and exposureNever usedOhioHealthStart: 08-18-2022 End: 69-69-2040Vpaunbjv to SARS-CoV-2 (event)Not sureOhioHealthStart: 08-28-2022 End: 14-02-4023Pklauqi of Social functionTrinity Health System [facility] Medical Center Work Phone: Start: 08-28-2022 End: 82-36-6619Jcobbgu use panelTrinity Health System [facility] Work Phone: Start: 23-39-5782Sth Assigned At [facility] Centertart: 12-05-2020 End: 68-84-4696Cxjkhwsf Score (1-100), lower number is lower riskNot on file [facility] CenterHas the electric, gas, oil, or water company threatened to shut off services in your home in past 12MoNOhioHealth [facility] Work Phone: (I/We) worried whether (my/our) food would run out before (I/we) got money to buy more.Never trueGreen Cross Hospitaltart: 01-15-2024 Alcohol Commentsocially, no drink [facility] ClinicStart: 09-11-2024 SexMale (finding)[facility]: 17-36-0268Zkgqhc identityIdentifies as male gender (finding)[facility] Medical Equipment Procedure CodeEquipment CodeEquipment Original TextEquipment IdentifierDates Cement 1 X 40 Pal[place] Bone Single - [id number]: 94-61-7217Qtfa Short Cemented Persona - [id number]: 78-99-4846Vunh Sz F Tib 5deg Nonpor Lt Persona - [id number] Start: 43-91-7382Bdvyxfy Sz9 Lt Nrw Ps Cmt Ccr Persona - [id number]: 30-04-8075Ywoyiws 32mm All Poly Persona - [id number]: 70-25-0129Fhjzfykzu Surf Ef 6-9 14mm Lt Ps Vivacit-E Persona - [id number]: 07-65-2786Lgak Short Cemented Persona - [id number]: 02-47-6155Kyrjgyh 32mm All Poly Vivacit-E - [id number]: 19-19-1631Shsacadln Surf 14mm 6-9ef Rt Cps Ve Persona - [id number]: 79-78-7791Hqornwx Hv With Gentamicin CementStart: 13-98-8618Nwfy Sz F Tib 5deg Nonpor Rt Persona - [id number]: 23-58-4356Vqnrudc Sz9 Rt Nrw Ps Cmt Ccr Persona - [id number]: 88-98-1680Eelxku 1 X 40 Palacos Bone Single - [id number]: 26-99-2025Qphe Short Cemented Persona - [id number]: 08-23-2014 Stem Sz F Tib 5deg Nonpor Lt Persona - [id number]: 08-60-4047Ckieipf Sz9 Lt Nrw Ps Cmt Ccr Persona - [id number]: 57-94-2651Kytbesy 32mm All Poly Persona - [id number]: 07-07-9759Fsmrfepxx Surf Ef 6-9 14mm Lt Ps Vivacit-E Persona - [id number]: 36-93-6318Nfns Short Cemented Persona - [id number]: 06-25-2016 Patella 32mm All Poly Vivacit-E - [id number]: 45-04-0980Fetqezxoj Surf 14mm 6-9ef Rt Cps Ve Persona - [id number]: 85-18-5207Wxglnhy Hv With Gentamicin CementStart: 28-17-4514Helk Sz F Tib 5deg Nonpor Rt Persona - [id number]: 29-68-4491Nzglqhd Sz9 Rt Nrw Ps Cmt Ccr Persona - [id number]: 06-25-2016 Cement 1 X 40 Palacos Bone Single - [id number]: 81-39-5655Waej Short Cemented Persona - [id number]: 22-21-2564Tfxc Sz F Tib 5deg Nonpor Lt Persona - [id number] Start: 62-91-2558Rxxvcxb Sz9 Lt Nrw Ps Cmt Ccr Persona - [id number]: 71-91-2502Khdplmy 32mm All Poly Persona - [id number]: 10-95-9870Xuydlqplh Surf Ef 6-9 14mm Lt Ps Vivacit-E Persona - [id number]: 11-49-2753Acyk Short Cemented Persona - [id number]: 87-66-8768Ubihntt 32mm All Poly Vivacit-E - [id number]: 56-82-1617Yjamxguyh Surf 14mm 6-9ef Rt Cps Ve Persona - [id number]: 95-67-7423Pmouiyy Hv With Gentamicin CementStart: 45-30-1448Lszg Sz F Tib 5deg Nonpor Rt Persona - [id number]: 79-88-4503Atnvuca Sz9 Rt Nrw Ps Cmt Ccr Persona - [id number]: 41-20-4612Xhsvct 1 X 40 Palac[place] Bone Single - [id number]_kofQfyat: 21-03-8574Ilhx Short Cemented Persona - [id number]_bpp Start: 59-20-5323Pndn Sz F Tib 5deg Nonpor Lt Persona - [id number]_hhfYtseo: 95-43-8920Rkyjcfq Sz9 Lt Nrw Ps Cmt Ccr Persona - [id number]_hugIynax: 35-33-3681Kiznlxa 32mm All Poly Persona - [id number]_cjaUtkym: 08-23-2014 Articular Surf Ef 6-9 14mm Lt Ps Vivacit-E Persona - [id number]_ojxZoeld: 60-84-9972Umix Short Cemented Persona - [id number]_wylOcche: 06-25-2016 Patella 32mm All Poly Vivacit-E - [id number]_tlcHmtam: 40-29-6641Ymxecxufj Surf 14mm 6-9ef Rt Cps Ve Persona - [id number]_bglQrxgj: 06-75-0312Gpwopwk Hv With Gentamicin Gfylpy516775_dypQkyyh: 15-79-9964Hkcf Sz F Tib 5deg Nonpor Rt Persona - [id number]_hfsEvbfq: 25-69-8542Dsypgpq Sz9 Rt Nrw Ps Cmt Ccr Persona - [id number]_vhsZrcun: 06-25-2016 Goals DatePatient GoalDesired Activity/StatePersonal health goal Functional Status Ycyo[id number] you deaf, or do you have serious difficulty hearingNo 12/26/2023 4:30 PM EDT Rojas Cline RN [facility] [id number] you blind, or do you have serious difficulty seeing, even when wearing glassesNo 12/26/2023 4:30 PM EDT Rojas Cline RN [facility] [id number] you have serious difficulty walking or climbing stairsNo 12/26/2023 4:30 PM EDRojas Higgins RN [facility]07-11-2024Do you have difficulty dressing or bathingNo 12/26/2023 4:30 PM EDT [facility] [id number] of a physical, mental, or emotional condition, do you have difficulty doing errands alone such as visiting a physician's office or shoppingNo 12/26/2023 4:30 PM EDT Rojas Cline RN [facility] Mental Status Oany[id number] of a physical, mental, or emotional condition, do you have serious difficulty concentrating, remembering, or making decisionsNo 12/26/2023 4:30 PM EDT Rojas Cline RN [facility] Clinical Notes 08-28-2022 to 04-27-2025 Note Date & [id number] History of Present illness Narrative* Jamel Chowdary, JESSIE - 04/27/2025 1:45 PM EST Images from the original note were not included. Subjective Patient ID: Willie Raymundo is a 75 y.o. male who presents for Wound FUV (Willie Raymundo is a 75 y.o. male who [...] understanding. Jamel Chowdary DPM documented in this [facility]11-11-2025 Instructions* Patient Instructions* Jamel Chowdary DPM - 04/27/2025 1:45 PM EST As noted documented in this [facility]10-31-2025 [facility]10-31-2025 NotePromed[facility]10-29-2025 History of Present illness Narrative* Jamel Chowdary DPM - 04/14/2025 4:15 PM EDT Images from the original note were not included. Subjective Patient ID: Willie Raymundo is a 75 y.o. male who presents for Nail care/Wound check (Willie Raymundo is a 75 y.o. male. Established patient relates he was in [facility] for 6 days 04/02/2025,Cellulitis left foot [...] lower extremity. Symptomatic onychodystrophy/mycosis multiple digits. Plan: Eugene agreement for conservative and palliative nail care [...] understanding. Jamel Chowdary DPM documented in this [facility]10-29-2025 Instructions* Patient Instructions* Jamel Chowdary DPM - 04/14/2025 4:15 PM EDT Wound care measures as noted documented in this [facility]10-24-2025 Evaluation note* Diagnosis Onset Date Resolution Status Admit Date Anasarca acuteOctober 2024 9:31amAnemiaacuteOctober 2024 9:31amCellulitis acuteOctober 2024 9:31amChronic kidney diseaseacuteOctober 2024 9:31amCirrhosisacuteOctober 2024 9:31amEsophageal varicesacuteOctober 2024 9:31amPrimary hypertensionacuteOctober 2024 9:31am [facility] Work Phone: 1(126) 704-925710-13-2025 NotePromedica Fostoria [facility]10-09-2025 History of Present illness Narrative* Jamel Chowdary, DPM - 03/25/2025 11:15 AM EDT Images [...] 5 days, followed by gradual transition to SkAXS-One slip-on footwear with custom fabricated crest pad. [...] understanding. Jamel Chowdary DPM documented in this encounterTexas County Memorial HospitalGfwcnurnrk63-04-9532 Instructions* Patient Instructions* Jamel Chowdary DPM - 03/25/2025 11:15 AM EDT As noted documented in this encounterTexas County Memorial HospitalLcgoyddlsy69-69-8992 NotePromedica Fostoria [facility]10-01-2025 History of Present illness Narrative* Jamel Chowdary, DPM - 03/17/2025 10:15 AM EDT Images [...] understanding. Jamel Chowdary DPM documented in this encounterTexas County Memorial HospitalFoetlmdufn31-04-3893 NotePromedica Fostoria [facility] Hospital09-26-2025 History of Present illness Narrative* Jamel Chodwary DPM - 03/12/2025 8:45 AM EDT Images [...] changes of the 1st MTP joint. Assessment/Plan Maojr stage II decubitus ulceration 2nd digit left [...] understanding. Jamel Chowdary DPM documented in this encounterTexas County Memorial HospitalXxwnbxznfi54-73-2123 History of Present illness Narrative* Zabrina Suarez MD - 02/25/2025 10:20 AM EDT [facility] NEPHROLOGY & [facility] UROLOGICAL AND K[facility] INSTITUTE SERVICE DATE: 02/25/2025 [...] 10 mg by mouth once daily. calcium iui-apv-G8-Zn-copy chief-kian 250 mg-40 mg- 125 unit-3.75mg tab Take [...] Jose Antonio Hopper MD documented in this encounterTr[facility]09-11-2025 NotePromedica Fostoria [facility] Hospital09-05-2025 History of Present illness Narrative* Nita [...] PATIENT PRESENTS WITH AN IMPLANTABLE OR ATTACHED IRONER MACHINE: No RADIOLOGY DEPARTMENT: Ultrasound PERIPHERAL IV DATA: Not applicable SIGNED BY: RT Lolly(R) February 19, 2025 2:26 PM documented in this encounterTrinity Health [facility]09-05-2025 NotePromedica Fostoria [facility] Hospital08-12-2025 History of Present illness Narrative* Jose [...] 10 mg by mouth once daily. calcium ugr-zyc-S0-Zn-copy chief-kian 250 mg-40 mg- 125 unit-3.75mg tab Take [...] diaphragmatic excursion. Lungs clear to auscultation. Heart: Lohn normal. Precordium quiet. RRR. Normal HS with [...] 2025 TIME: 1:39 PM documented in this encounterTrinity Health [facility]08-12-2025 Evaluation note* Diagnosis Metabolic encephalopathy- Primary Stage 3a chronic kidney disease (HCC) Primary hypertension Unspecified essential hypertension Lymphocytic colitis Other and unspecified noninfectious gastroenteritis and colitis Generalized edema Edema Orthostatic hypotension Cramp and spasm Urge incontinence Elevated alkaline phosphatase level Other nonspecific abnormal serum enzyme levels documented in this encounter [facility]07-28-2025 History of Present illness Narrative* Triston Riggs MD - 01/11/2025 9:30 AM EDT Images from the original note were not included. Respiratory Pound Pulmonary Consultation CC: Persistent RIGHT pleural effusion Sav Raymundo is a 74 year old male sent by Dr. STEPHANE Cesar MD and Ronaldo Flood MD, PhD for evaluation of persistent RIGHT pleural effusion. My final recommendations will be communicated to the requesting health care provider by way of the shared medical record for internal providers or lettervia the [employer] for external providers. Assessment and Plan [...] 10 mg by mouth once daily. calcium jft-vrn-G0-Zn-copy chief-kian 250 mg-40 mg- 125 unit-3.75mg tab Take [...] 0.2 11/12/2024 Abs Neut 7.03 11/12/2024 Abs Gilpin 0.67 11/12/2024 Abs Eosin <0.03 11/12/2024 Abs [...] 36 % 39 80 (H) 80 (H) Gilpin%, BF % 6 Macro%, BF 64 - [...] with more than 50% of the total pjzv-ff-urkh time of the visit in counseling / coordination of care. Triston Riggs M.D. Staff, Interventional Pulmonology. Pulmonary, Allergy & Critical Care Medicine [facility] documented in this encounterTrinity Health [facility]07-28-2025 NotePromedica Fostoria [facility]07-25-2025 History of Present illness Narrative* [...] PATIENT PRESENTS WITH AN IMPLANTABLE OR ATTACHED IRONER MACHINE: No RADIOLOGY DEPARTMENT: General X-ray: Exam(s) Completed: Chest X-Ray PERIPHERAL IV DATA: Not applicable SIGNED BY: RT Cleveland(R) January 08, 2025 12:43 PM documented in this encounterTrinity Health [facility]07-25-2025 NotePromedica Fostoria [facility] Hospital07-08-2025 Instructions* Patient Instructions* Marlyn Hooper APRN.SEO SPECIALIST - 12/22/2024 7:12 PM EDT We discussed [...] procedure, and you can schedule it at [place] or the [place] by calling [phone]. - Additional blood work has been ordered to rule out autoimmune or viral causes of liver damage. You can complete this at [facility] or another lab location. We discussed your kidney health: - Your creatinine levels, which indicate kidney function, are continuing to rise. I recommend seeing a fabricator foam rubber (kidney specialist) to evaluate this further and assess your current use of water pills (torsemide). I have placed a referral for nephrology, and you can schedule an appointment by calling [phone]. Virtual visits may also be an option. We discussed your fluid retention and current medication regimen: - Your fluid retention is being managed with torsemide, but the dosing schedule is complex and may need adjustment. A fabricator foam rubber can help optimize this to protect your [...] any new concerns, and contact me through EasyPaint if needed. - I will review the biopsy and blood work results once they are available and contact you with nextsteps. Please let me know if you have any questions or concerns in the meantime. documented in this encounterTrinity Health [facility]07-08-2025 History of Present illness Narrative* Marlyn Hooper APRN.CNP - 12/22/2024 6:00 PM EDT VIRTUAL VISIT PROGRESS NOTE This is a virtual visit using [employer] Zoom Video Visit. It required patient- provider interaction for the medical decision making as documented below. I have communicated my name and active licensure. The patient's identity and physical location wereverified at the time of this visit. Either the patient or their legal medical representative has been informed of the risks [...] despite evaluation by rheumatology, pulmonology, gastroenterology, and access database developer, as well as recent vascular testing. The [...] He is not currently followed by a fabricator foam rubber, but his creatinine has been rising. An [...] 10 mg by mouth once daily. calcium pdi-pac-I3-Zn-copy chief-kian 250 mg-40 mg- 125 unit-3.75mg tab Take [...] isnot currently under the care of a fabricator foam rubber. - Referral to nephrology for further evaluation and management. - Provided patient with scheduling number for nephrology appointment. - Advised patient to monitor kidney function closely. I spent a total of 45 minutes on the date of the service which included preparing to see the patient, hrfs-cm-xput patient care, completing clinical documentation, counseling and educating the patient/family/caregiver, ordering medications, tests, or procedures, and communicating results to the raquel ent/family/caregiver Marlyn Hooper APRN.SEO SPECIALIST documented in this encounterTrinity [facility]07-08-2025 NotePromedica Fostoria [facility]07-01-2025 History of Present illness Narrative* [...] 10 mg by mouth once daily. calcium pyf-cug-Q0-Zn-copy chief-kian 250 mg-40 mg- 125 unit-3.75mg tab Take [...] diaphragmatic excursion. Lungs clear to auscultation. Heart: Lohn normal. Precordium quiet. RRR. Normal HS with [...] 2024 TIME: 11:34 AM documented in this encounterTrinity Health [facility] Center06-09-2025 Telephone encounter Note * Telephone Encounter - Jahaira Wood - 11/23/2024 1:48 PM EDT Received missed visit notes 11/20/24 and 11/10/24 records scanned in [employer] front desk admin [facility]06-09-2025 Miscellaneous Notes* Telephone Encounter - Jahaira Wood - 11/23/2024 1:48 PM EDT Received missed visit notes 11/20/24 and 11/10/24 records scanned in [employer], front desk admin documented in this encounterTrinity Health [facility] Center06-09-2025 History of Present illness Narrative* Triston Riggs MD - 11/23/2024 12:00 PM EDT Images from the original note were not included. Respiratory Pound Pulmonary Consultation CC: Persistent RIGHT pleural effusion Sav Raymundo is a 74 year old male sent by Dr. STEPHANE Cesar MD for evaluation of persistent RIGHT pleural effusion. My final recommendations will be communicated to the requesting health care provider by way of the shared medical record for internal providers or letter via the [employer] for external providers. Assessment and [...] He will complete course of oral antibiotics. [facility], [place], [place] is home care provider. He continues [...] 10 mg by mouth once daily. calcium fjp-ziu-Q4-Zn-copy chief-kian 250 mg-40 mg- 125 unit-3.75mg tab Take [...] UltraSens C-Reactive Protein <3.1 mg/L 13.2 (H) [facility] Reference Range & Units Most [...] 1.21 0.95 (L) 0.80 (L) 0.91 (L) Gilpin% % 7.6 11/12/24 13:30 11.7 12.9 7.3 7.6 Abs Gilpin <0.87 k/uL 0.67 11/12/24 13:30 0.80 1.03 [...] 36 % 39 80 (H) 80 (H) Gilpin%, BF % 6 Macro%, BF 64 - [...] with more than 50% of the total cykr-uy-blvk time of the visit in counseling / coordination of care. Triston Riggs M.D. Staff, Interventional Pulmonology. Pulmonary, Allergy & Critical Care Medicine [facility] documented in this encounterTrinity Health [facility]06-09-2025 NotePromedica Fostoria [facility]06-09-2025 History of Present illness Narrative* Karsten Lagos [...] PATIENT PRESENTS WITH AN IMPLANTABLE OR ATTACHED IRONER MACHINE: No RADIOLOGY DEPARTMENT: General X-ray: Exam(s) Completed: Chest X-Ray PERIPHERAL IV DATA: Not applicable SIGNED BY: RT Franca(R) November 23, 2024 12:31 PM documented in this encounterTrinity Health System [facility] Center06-09-2025 [facility]06-06-2025 NotePromedica Fost[facility]06-06-2025 History of Present illness Narrative* Zac Mendiola MD - 11/20/2024 9:23 AM EDT Images from the original note were not included. Heart, Vascular and Thoracic Pound April Baltazar Department of Cardiovascular Medicine SECTION OF INTERVENTIONAL CARDIOLOGY OUTPATIENT VISIT DATE 11/20/2024 OUTPATIENT VISIT TYPE New PRIMARY CARE PHYSICIAN: Jose Antonio Hopper [address] [address] REFERRING PHYSICIAN: No referring provider defined for this encounter. Recording using Dormify software for draft documentation of the visit was discussed with the patient/authorized medical representative; all questions welcomed and answered. Patient/authorized medical representative agreed to proceed HISTORY OF PRESENT [...] 10 mg by mouth once daily. calcium cpm-soa-J4-Zn-copy chief-kian 250 mg-40 mg- 125 unit-3.75mg tab Take [...] of Cardiovascular Medicine Heart, Vascular and Thoracic Pound [facility] Office Office Pager [phone] documented in this encounterTrinity Health [facility]06-05-2025 NotePromedica Fost[facility]06-05-2025 History of Present illness Narrative* Triston Riggs MD - 11/19/2024 3:28 PM EDT Images from the original note were not included. Respiratory Pound Pulmonary Consultation CC: Persistent RIGHT pleural effusion Sav Raymundo is a 74 year old male sent by Dr. STEPHANE Cesar MD for evaluation of persistent RIGHT pleural effusion. My final recommendations will be communicated to the requesting health care provider by way of the shared medical record for internal providers or letter via the [employer] for external providers. Assessment and Plan [...] CxR placed He will obtain CxR in [place] as need for perceived recurrence of effusion [...] Catheter not accessed 11/17, 11/18 or today. [place] is home care provider. He continues [...] 10 mg by mouth once daily. calcium fny-xyn-Q2-Zn-copy chief-kian 250 mg-40 mg- 125 unit-3.75mg tab Take [...] UltraSens C-Reactive Protein <3.1 mg/L 13.2 (H) [facility] Reference Range & Units Most [...] 1.21 0.95 (L) 0.80 (L) 0.91 (L) Gilpin% % 7.6 11/12/24 13:30 11.7 12.9 7.3 7.6 Abs Gilpin <0.87 k/uL 0.67 11/12/24 13:30 0.80 1.03 [...] 36 % 39 80 (H) 80 (H) Gilpin%, BF % 6 Macro%, BF 64 - [...] Pulmonology. Pulmonary, Allergy & Critical Care Medicine [facility] documented in this encounterTrinity Health [facility]06-05-2025 History of Present illness Narrative* [...] PATIENT PRESENTS WITH AN IMPLANTABLE OR ATTACHED IRONER MACHINE: No RADIOLOGY DEPARTMENT: General X-ray: Exam(s) Completed: Chest X-Ray PERIPHERAL IV DATA: Not applicable SIGNED BY: RT Dimitri(R) November 19, 2024 1:24 PM documented in this encounterTrinity Health [facility]06-05-2025 NotePromed[facility]06-03-2025 Telephone encounter Note* Telephone Encounter [...] with physician. She can be reached at [phone] She asked if a detailed voicemail can be left if somehow she misses the call [facility]06-03-2025 Miscellaneous Notes* Telephone Encounter - [...] with physician. She can be reached at [phone] She asked if a detailed voicemail can be left if somehow she misses the call documented in this encounterTrinity Health [facility]05-30-2025 History of Present illness Narrative* Jose Antonio Hopper MD - 11/13/2024 1:34 PM EDT PROGRESS NOTES Patient Name: Sav Raymundo SERVICE DATE: 11/13/2024 SERVICE TIME: 1:47 PM HPI: Mr. Raymundo is a 74 year old male who presents for Follow Up.Developed significant swelling.[facility] ED.No SOB,no abdominal pain MEDICATIONS: [...] 10 mg by mouth once daily. calcium pbg-lje-B8-Zn-copy chief-kian 250 mg-40 mg- 125 unit-3.75mg tab Take [...] diaphragmatic excursion. Lungs clear to auscultation. Heart: Lohn normal. Precordium quiet. RRR. Normal HS with [...] 2024 TIME: 1:47 PM documented in this encounterTrinity Health [facility]05-29-2025 [facility]05-28-2025 Miscellaneous Notes* Telephone Encounter - Xiomara Ly APRN.CNP - 11/11/2024 5:20 PM EDT Called pt to discuss symptoms. Advised that given reported rapid weight gain over the last 4-5 days, he should be evaluated in the ED to determine if inpatient management is appropriate for worseningsymptoms. Pt verbalized understanding. Xiomara Ly APRN.CNP documented in this encounterTrinity Health System [facility]05-28-2025 Telephone encounter Note * Telephone Encounter - Xiomara Ly APRN.CNP - 11/11/2024 5:20 PM EDT Called pt to discuss symptoms. Advised that given reported rapid weight gain over the last 4-5 days, he should be evaluated in the ED to determine if inpatient management is appropriate for worseningsymptoms. Pt verbalized understanding. Xiomara Ly APRN.CNP [facility] Work Phone: 1(601) 623-936005-21-2025 NoteHNO ID: [id number] Author: CINTIA JOSHI RT(R) Service: Radiology Author [...] PATIENT PRESENTS WITH AN IMPLANTABLE OR ATTACHED IRONER MACHINE: No RADIOLOGY DEPARTMENT: CT; Exam(s) Completed: Enterography PERIPHERAL IV DATA: Not applicable SIGNED BY: RT Cachorro(R) November 04, 2024 1:24 [facility] [id number] NoteHNO ID: [id number] Author: DRAGAN LOPEZ CT Service: Radiology Author [...] without pain. Symptoms: Swelling/edema. Physician notified: MANUEL Ria Treatment: Peripheral IV access discontinued, Cold compress, and Extremity elevation. At Home instructions given to patient: Yes. WAS EXAM COMPLETED: Yes ADDITIONAL EVENT DETAILS: N/A SIGNATURE: MAICOL ZELAYA PATIENT NAME: Sav Raymundo DATE: November 04, 2024 TIME: 2:57 PM PAGER/CONTACT #:[id number] History of Present illness Narrative* Riley Rowley [...] PATIENT PRESENTS WITH AN IMPLANTABLE OR ATTACHED IRONER MACHINE: No RADIOLOGY DEPARTMENT: Ultrasound PERIPHERAL IV DATA: Not applicable SIGNED BY: Riley Rowley RDMS, RVT October 23, 2024 2:13 PM documented in this encounterTrinity Health [facility]05-09-2025 NoteHNO ID: [id number] Author: RILEY ROWLEY RDMS, RVT Service: Radiology Author Type: Lead Machinist Type: Progress Notes Filed: 10/23/2024 14:13 Note [...] PATIENT PRESENTS WITH AN IMPLANTABLE OR ATTACHED IRONER MACHINE: No RADIOLOGY DEPARTMENT: Ultrasound PERIPHERAL IV DATA: Not applicable SIGNED BY: Riley Rowley RDMS, RVT October 23, 2024 2:13 [facility] [id number] Telephone encounter Note* Telephone Encounter - Jahaira Wood - 10/23/2024 10:20 AM EDT Received missed visit note from [facility] 10/14/24, record scanned in Epic Jahaira Wood, front desk admin [facility]05-09-2025 Miscellaneous Notes* Telephone Encounter - Jahaira Wood - 10/23/2024 10:20 AM EDT Received missed visit note from [facility] 10/14/24, record scanned in [facility] Jahaira Wood, front desk admin documented in this encounterTrinity Health [facility]05-07-2025 Telephone encounter Note * Telephone [...] and agreeable to advisement. Xiomara Ly APRN.CNP [facility]05-07-2025 Miscellaneous Notes* Telephone Encounter - [...] advisement. Xiomara Ly APRN.CNP documented in this encounterTrinity Health [facility]05-01-2025 History of Present illness Narrative* Zabrina Suarez MD - 10/15/2024 9:20 AM EDT [facility] NE[facility]OLOGY & [facility]ICAL [facility]STITUTE SERVICE DATE: 10/15/2024 [...] 1 tablet by mouth once daily. calcium qqu-ngr-U2-Zn-copy chief-kian 250 mg-40 mg- 125 unit-3.75mg tab Take [...] PHYSICIAN: Yuli Mariscal DO documented in this encounterCleveland [id number] NotePromedica Fostoria Community Hospital04-30-2025 Miscellaneous Notes* Telephone Encounter - Xiomara Ly APRN.CNP - 10/14/2024 4:00 PM EDT This concern was discussed and addressed at 10/14/24 appointment. Xiomara Ly APRN.CNP documented in this encounterTrinity Health [facility]04-30-2025 Telephone encounter Note * Telephone Encounter - Xiomara Ly APRN.CNP - 10/14/2024 4:00 PM EDT This concern was discussed and addressed at 10/14/24 appointment. Xiomara Ly APRN.CNP [facility] Work Phone: 1(642) 148-523104-30-2025 Instructions* Patient Instructions* Xiomara Ly APRN.CNP - [...] pt on sooner follow-up documented in this encounterTrinity Health [facility] Center04-30-2025 History of Present illness Narrative* Xiomara LyLETICIA.SEO SPECIALIST - 10/14/2024 3:00 PM EDT SUBJECTIVE 74 [...] 10 mg by mouth once daily. calcium fxp-qhw-B7-Zn-copy chief-kian 250 mg-40 mg- 125 unit-3.75mg tab Take [...] which included preparing to see the patient, ylla-uh-fucn patient care, completing clinical documentation, obtaining and/or reviewing separately obtained history, performing a medically appropriate examination, counseling and educating the pat ient/family/caregiver, and ordering medications, tests, or procedures. Xiomara Ly APRN.CURT 10/15/2024 9:00 AM documented in this encounterTrinity Health [facility]04-30-2025 NotePromedica F[facility]04-30-2025 NoteProm[facility]04-30-2025 History of Present illness Narrative* Triston Riggs MD - 10/14/2024 1:04 PM EDT Images from the original note were not included. Respiratory Pound Pulmonary Consultation CC: Persistent RIGHT pleural effusion Sav Raymundo is a 74 year old male sent by Dr. STEPHANE Cesar MD for evaluation of persistent RIGHT pleural effusion. My final recommendations will be communicated to the requesting health care provider by way of the shared medical record for internal providers or letter via the [employer] for external providers. Assessment and [...] did he have some sense of limitation. [facility], [place], [place] is home care provider. Since he [...] Raymundo is a 71 y/o, from [facility], here for follow-up for pleural effusion. He [...] referred for pleurodesis to thoracic surgery in [place], which he underwent inJune 2023. Though no [...] other day) -Rheumatologic assessment done, workup negative, trimming machine set up operator has no evidence of any autoimmune disease -Off prednisone for the last 5 months -Off Plaquenil for the past 3 weeks -On diuretics, now on torsemide Interestingly, on further discussion, mostly with trimming machine set up operator, we have uncovered that he has [...] 10 mg by mouth once daily. calcium jzp-tzd-J9-Zn-copy chief-kian 250 mg-40 mg- 125 unit-3.75mg tab Take [...] 0.1 10/15/2024 Abs Neut 9.45 10/15/2024 Abs Gilpin 0.81 10/15/2024 Abs Eosin <0.03 10/15/2024 Abs [...] 36 % 39 80 (H) 80 (H) Gilpin%, BF % 6 Macro%, BF 64 - [...] Pulmonology. Pulmonary, Allergy & Critical Care Medicine [facility] documented in this encounterTrinity Health [facility]04-29-2025 History of Present illness Narrative* [...] PATIENT PRESENTS WITH AN IMPLANTABLE OR ATTACHED IRONER MACHINE: No RADIOLOGY DEPARTMENT: General X-ray: Exam(s) Completed: Chest X-Ray PERIPHERAL IV DATA: Not applicable SIGNED BY: RT Cleveland(R) October 13, 2024 1:12 PM documented in this encounterTrinity [facility]04-29-2025 [facility]04-18-2025 NotePromedica [facility]ost[facility]04-18-2025 History of Present illness Narrative* [...] agreement. Katerina Contreras PA-C documented in this encounterTrinity Health [facility]04-11-2025 NoteQ3 Patient Name: Sav Raymundo Procedure Date: 09/25/2024 11:14 AM Date of : 1950 Admit Type: Outpatient Age: 74 Gender: Male Note Status: Finalized Attending MD: Shay Dennis , , [id number] Procedure: Upper GI endoscopy Indications: Dysphagia Providers: [...] by the physician, the nurse and the community health advisor in the pre-procedure area in the endoscopy [...] Integrity. Impression: - Nor (more content not included)...[id number] Nurse Note* Obi Flower LPN - 09/25/2024 [...] MATERIAL: Procedure Discharge Instructions REFERRAL (RECOMMENDATION): None [facility]04-11-2025 Nurse Note* Obi Flower LPN [...] RN In Department: GASTROENTEROLOGY documented in this encounterTrinity Health System [facility]04-11-2025 History and physical note * Shay Dennis MD - 09/25/2024 11:30 AM EDT ENDOSCOPY HISTORY AND PHYSICAL EXAM Sav Raymundo [id number] Subjective HPI: This is a 74 year [...] an EGD with dilation using a 60 Palestinian Keller dilator in April 2024 PAST ANESTHESIA [...] 1 tablet by mouth once daily. calcium cpq-ogv-J6-Zn-copy chief-kian 250 mg-40 mg- 125 unit-3.75mg tab Take [...] signed Shay Dennis MD 09/24/2024 4:08 PM [facility]04-11-2025 History and physical note* Shay Dennis MD - 09/25/2024 11:30 AM EDT ENDOSCOPY HISTORY AND PHYSICAL EXAM Sav Cantu Kimberly [id number] Subjective HPI: This is a 74 year [...] an EGD with dilation using a 60 Palestinian Keller dilator in April 2024 PAST ANESTHESIA [...] 1 tablet by mouth once daily. calcium mft-pjc-I9-Zn-copy chief-kian 250 mg-40 mg- 125 unit-3.75mg tab Take [...] MD 09/24/2024 4:08 PM documented in this encounterTrinity Health [facility]04-11-2025 Nurse Note* Amrik Mast RN [...] By: Amrik Mast RN In Department: GASTROENTEROLOGY [facility]04-09-2025 Telephone encounter Note* Telephone Encounter - Jahaira Wood - 09/23/2024 11:59 AM EDT Received missed visit notes from [facility] Records scanned in [employer] Jahaira Wood, front desk admin [facility]04-09-2025 Miscellaneous Notes* Telephone Encounter - Jahaira Wood - 09/23/2024 11:59 AM EDT Received missed visit notes from [facility] Records scanned in [employer] Jahaira Harris, front desk admin documented in this encounterTrinity Health [facility]04-04-2025 Nurse Note* Melinda Calderón RN [...] have family/friend present for procedure transport home:Patient/patient medical representative was told that if they do [...] area. Any barriers to Patient learning: Patient/Patient Renderer responded appropriately on phone. Type of instruction given: Verbal by telephone contact. Melinda Calderón RN [facility]04-04-2025 Nurse Note* Melinda Calderón RN [...] have family/friend present for procedure transport home:Patient/patient medical representative was told that if they do [...] area. Any barriers to Patient learning: Patient/Patient Renderer responded appropriately on phone. Type of instruction given: Verbal by telephone contact. Melinda Calderón RN documented in this encounterTrinity Health [facility]03-31-2025 Telephone encounter Note * Telephone Encounter - Andree Colby RN - 09/14/2024 12:56 PM EDT Left message on EVAN Campos's voicemail after d/w pleaural team. Pleurx is draining as expected. Stomach distention should not be a symptom of pleural drainage and may need to be further evaluated in GI or the ED if symptoms persists. [facility]03-31-2025 Miscellaneous Notes* Telephone Encounter - [...] - 09/14/2024 10:28 AM EDT Beth from [facility] called with an update. They have started draining on daily for pluerx catheter. They have been getting between 170 and 210 daily. Patient had SOB on and denies SOB other days. Stomach is distended Beth can be reached at [phone] documented in this encounterTrinity Health [facility]03-31-2025 Telephone encounter Note * Telephone Encounter - Amanda Brooks - 09/14/2024 10:28 AM EDT Beth from [facility] called with an update. They have started draining on daily for pluerx catheter. They have been getting between 170 and 210 daily. Patient had SOB on and denies SOB other days. Stomach is distended Beth can be reached at [phone] [facility]03-25-2025 NotePromedica [facility]03-21-2025 History of Present illness Narrative* [...] mouth once daily. 90 tablet 0 calcium lkb-stb-L3-Zn-copy chief-kian 250 mg-40 mg- 125 unit-3.75mg tab Take [...] diaphragmatic excursion. Lungs clear to auscultation. Heart: Lohn normal. Precordium quiet. RRR. Normal HS with [...] 2024 TIME: 2:11 PM documented in this encounterTrinity Health [facility]03-21-2025 NotePromedica [facility]ostoria [facility]03-21-2025 Telephone encounter Note* Telephone Encounter - Benny Johnson - 09/04/2024 10:57 AM EDT 09/04 - Scheduled patient for Thoracentesis at [facility] for 09/08 @ [facility]03-21-2025 Miscellaneous Notes* Telephone Encounter - Benny Johnson - 09/04/2024 10:57 AM EDT 09/04 - Scheduled patient for Thoracentesis at [facility] for 09/08 @ documented in this encounterTrinity Health [facility]03-19-2025 Telephone encounter Note * Telephone Encounter - Hanane Bonilla, LETICIA.SEO SPECIALIST - 09/02/2024 4:13 PM EDT Spoke with [facility] who states they have not had steroid injection yet (updated). She is wondering aboutbest practice to get PleurX to drain and if it is okay to have patient cough during draining. Advised that coughing is okay during draining. Currently draining daily till appointment with Dr. Riggs. All questions answered to satisfaction. Hanane Bonilla APRN.CNP 4:22 PM, 09/02/2024 [facility] Work Phone: [phone]) 173-818203-19-2025 Miscellaneous Notes* Telephone Encounter - Hanane Bonilla APRN.CNP - 09/02/2024 4:13 PM EDT Spoke with [facility] who states they have not had steroid [...] from the original note were not included. [facility] Phone Encounter DATE of SERVICE: 09/02/2024 TIME of SERVICE: 3:57 PM Status: Non-urgent, needs attention Service/Provider: Thoracic Surgery Ronaldo Flood M.D. Reason for call: Care Coordination Contact information: Roney Campos Home Care nurse, Resolution[facility] Comments: Roney Campos home care nurse, called the [facility] post-discharge line to ask to speak with [...] of Resolution 3:57 PM documented in this encounterTrinity Health [facility]03-19-2025 Telephone encounter Note * Telephone Encounter - Susan Rodas RN - 09/02/2024 3:57 PM EDT Images from the original note were not included. [facility] Phone Encounter DATE of SERVICE: 09/02/2024 TIME of SERVICE: 3:57 PM Status: Non-urgent, needs attention Service/Provider: Thoracic Surgery Ronaldo Flood M.D. Reason for call: Care Coordination Contact information: Roney Campos Home Care nurse, Resolution: [facility] to [facility] Comments: Roney Campos home care nurse, called the [facility] post-discharge line to ask to speak with [...] Resolution: 09/02/2024 Time of Resolution 3:57 PM [facility]2025 History of Present illness Narrative* [...] limited to risks of scarring, darker or neuro psych sales specialist pigmentary changes, recurrence, incomplete removal and infection. [...] both legs Left Lower Leg - Anterior High Rolls scaly plaques in areas of edema, mild, [...] Next Visit: 1 year documented in this encounterTexas County Memorial HospitalDylhecsyqc20-78-0450 Telephone encounter Note* Telephone Encounter - Britney Hsu RN - 08/26/2024 4:27 PM EDT Patient spouse (ayaka) returned call. Verified patient name and . Advised potassium levels were low and elevated kidney function. To please follow up with PCP and Dr. Hopper. verbalized understanding and agreed, Will follow up as needed. Britney Shen RN [facility]03-12-2025 Miscellaneous Notes* Telephone Encounter - [...] no answer. Left message to return call. MyToonshart message sent to call nurse. Will follow [...] Hopper for further management documented in this encounterTrinity Health [facility]03-12-2025 Telephone encounter Note * Telephone [...] follow up as needed. Britney Shen RN [facility]03-12-2025 Progress note* Result Encounter Note - Sue Terrell MD - 08/26/2024 12:41 PM EDT Please call patient and let him know that his potassium levels are down with elevated kidney function test. He is already on potassium supplements. Needs to touch base with his PCP and Dr Hopper for further management [facility] Work Phone: 1(763) 473-588603-10-2025 History of Present illness Narrative* Sue Terrell MD - 08/24/2024 11:00 AM EDT Follow Up Visit SUBJECTIVE 74 year old male with lymphocytic colitis here for follow-up. Last seen 05/26/2024. Changes and test results since last visit: He is off of budesonide since a month Coughing, vomiting and swallowing issues. Started on Lost about 11 lbs weight loss. 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 90 tablet 0 calcium fpf-jsc-D1-Zn-copy chief-kian 250 mg-40 mg- 125 unit-3.75mg tab Take [...] dilation -continue with PPI Sue Terrell MD, August 23, 2024 7:06 PM * Shyla Ornelas OCCA - 08/24/2024 10:49 AM EDT Pt stated that he is having problems swallowing. Pt coughs and throws up for the food that gets stuck and then he can eat some more. documented in this encounterTrinity Health [facility]03-10-2025 NotePromedica [facility]oria [facility]03-10-2025 NotePromedica [facility]03-07-2025 Telephone encounter Note* Telephone Encounter - Ayana Cheung RN - 08/21/2024 10:28 AM EST Images from the original note were not included. [facility] Phone Encounter DATE of SERVICE: 08/21/2024 TIME of SERVICE: 10:28 AM Status: Non-urgent, needs attention Service/Provider: Thoracic Surgery Ronaldo Flood M.D. Reason for call: Care Coordination Contact information: Roney Campos Home Care nurse, Resolution: [facility] Comments: Roney Campos home care nurse, called the [facility] post-discharge line to ask to speak with [...] Resolution: 08/21/2024 Time of Resolution 10:28 AM [facility]03-07-2025 Miscellaneous Notes* Telephone Encounter - Ayana Cheung RN - 08/21/2024 10:28 AM EST Images from the original note were not included. [facility] Phone Encounter DATE of SERVICE: 08/21/2024 TIME of SERVICE: 10:28 AM Status: Non-urgent, needs attention Service/Provider: Thoracic Surgery Ronaldo Flood M.D. Reason for call: Care Coordination Contact information: Roney Campos Home Care nurse, Resolution: [facility] to [facility] Comments: Beth Barriedelma home care nurse, called the [facility] post-discharge [...] of Resolution 10:28 AM documented in this encounterTrinity Health [facility]03-04-2025 NotePromedica Fostoria [facility]03-04-2025 History of Present illness Narrative* Della Barragan APRN.CURT - 08/18/2024 2:06 PM EST Images from the original note were not included. [facility] DEPARTMENT OF THORACIC SURGERY OUTPATIENT VISIT TYPE ESTABLISHED Part of this note was copied from previous note, all content has been individually reviewed, updated as necessary, and thoroughly reviewed. PT NAME: Sav Cantu Kimberly [facility] NO: [id number] THORACIC SURGEON: Ronaldo Flood M.D. 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 Right pleura, biopsy: - Chronic pleuritis with mesothelial hyperplasia (see comment). B. Right pleura, biopsy: - Acute organizing and chronic pleuritis (see comment). IA/ 11/22/2023 Diagnosis Comment A. 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 He was hospitalized 12/20/23 for anasarca, possible autoimmune disease, recurrent pleural effusion. Imaging did not reveal any acute findings. Patient was admitted to [facility] and started on lasix drip, improving anasarca and pleural effusion. Pleurx catheter was drained daily with significantly decreasing output [phone]. 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 Flood. PLAN: - continue draining the pleurex daily - Dr Riggs/pulm to perform intrapleural steroid injection - return as needed Della Barragan APRN.SEO SPECIALIST documented in this encounterTrinity Health [facility]02-28-2025 NoteRight Eye Quality was good. Scan locations included subfoveal. Progression has been stable. Findings include normal observations. Left Eye Quality was good. Scan locations included subfoveal. Progression has been stable. Findings include normal observations. Notes Good scan with normal appearanceTexas County Memorial [id number] NotePromedica Fostoria Community Hospital02-26-2025 History of Present illness Narrative* [...] laser capsulotomy, they are to notify their showroom manager promptly if they have a significant [...] resolution of the lesion. documented in this encounterTexas County Memorial HospitalBkwgefgmpn47-14-4769 Telephone encounter Note* Telephone Encounter - Maggie Leon - 08/12/2024 12:42 PM EST Patient requesting return call from Gimmie. Please call [phone] I informed patient Beth from [facility] called today and spoke with office. [facility]02-26-2025 Miscellaneous Notes* Telephone Encounter - Maggie Leon - 08/12/2024 12:42 PM EST Patient requesting return call from Katerina. Please call [phone] I informed patient Beth from [facility] called today and spoke with office. documented in this encounterTrinity Health [facility]02-26-2025 Telephone encounter Note * Telephone Encounter - Amanda Brooks - 08/12/2024 12:27 PM EST Ebth from [facility] called and would like to speak to Katerina. Spoke with Beth She informed me that pt going to local ED for evaluation. Update: Pt had b/l US - report from [facility] was negative for DVTs was received and sent to be entered into scanned docs. Pt notified of results. Katerina Contreras PA-C [facility]02-26-2025 Miscellaneous Notes* Telephone Encounter - Amanda Brooks - 08/12/2024 12:27 PM EST Beth from [facility] called and would like to speak to Katerina. Spoke with Beth She informed me that pt going to local ED for evaluation. Update: Pt had b/l US - report from [facility] was negative for DVTs was received and sent to be entered into scanned docs. Pt notified of results. Katerina Contreras PA-C documented in this encounterTrinity Health [facility]02-26-2025 Telephone encounter Note * Telephone Encounter - Maggie Leon - 08/12/2024 10:21 AM EST Beth from [facility] called and updated she left a voicemail regarding this patient. He is having issues with pleurrX drain, swelling, weight gain, nausea and constipation. She would like acall back at [phone] Spoke with pt's [facility] nurse, Beth. Pt still draining daily and [...] Flood. Of note, they are meeting with TRAVELING STOREKEEPER Della Barragan on , 08/18/24. Update communicated to Dr. Riggs. Katerina Contreras PA-C Addendum: Nurse reports pt plans on going to local hospital Katerina Contreras PA-C [facility]02-26-2025 Miscellaneous Notes* Telephone Encounter - Maggie Leon - 08/12/2024 10:21 AM EST Beth from [facility] called and updated she left a voicemail regarding this patient. He is having issues with pleurrX drain, swelling, weight gain, nausea and constipation. She would like acall back at [phone] Spoke with pt's [facility] nurse, Beth. Pt still draining daily and [...] Flood. Of note, they are meeting with TRAVELING STOREKEEPER Della Barragan on , 08/18/24. Update communicated to Dr. Riggs. Katerina Contreras PA-C Addendum: Nurse reports pt plans on going to local [facility] Katerina Contreras PA-C documented in this encounterTrinity Health [facility]02-24-2025 Telephone encounter Note * Telephone Encounter - Amanda Brooks - 08/10/2024 9:35 AM EST Beth from [facility] called and would like to speak to Katerina regarding patient symptoms [facility]02-24-2025 Miscellaneous Notes* Telephone Encounter - Amanda Brooks - 08/10/2024 9:35 AM EST Beth from [facility] called and would like to speak to Katerina regarding patient symptoms documented in this encounterTrinity Health System [facility]02-18-2025 Telephone encounter Note * Telephone Encounter - Maggie Leon - 08/04/2024 10:23 AM EST Call received from home care Nurse, Beth. She wanted to update our office that she is waiting to hear back from dr Flood. Patient is having issues with pleurix and they are unsure if it's due to clogging or if it's positional. Beth can be reached at [phone] [facility]02-18-2025 Miscellaneous Notes* Telephone Encounter - Maggie Leon - 08/04/2024 10:23 AM EST Call received from home care Nurse, Beth. She wanted to update our office that she is waiting to hear back from dr Flood. Patient is having issues with pleurix and they are unsure if it's due to clogging or if it's positional. Beth can be reached at [phone] * Telephone Encounter - Amanda Brooks - [...] 20 Today - 35 Virgen (patient ) [phone] Patient [phone] documented in this encounterTrinity Health System [facility]02-18-2025 Telephone encounter Note * Telephone Encounter - Jahaira Wood - 08/04/2024 8:38 AM EST Received missed visit notes from [facility] care, record scannned in [facility] Jahaira oWod front desk admin [facility]02-18-2025 Miscellaneous Notes* Telephone Encounter - Jahaira Wood - 08/04/2024 8:38 AM EST Received missed visit notes from [facility], record scannned in [facility] Jahaira Wood, front desk admin documented in this encounterTrinity Health [facility]02-17-2025 Telephone encounter Note * Telephone [...] 20 Today - 35 Virgen (patient ) [phone] Patient [phone] [facility]02-04-2025 History of Present illness Narrative* Jose Antonio Hopper MD - 07/21/2024 2:19 PM EST PROGRESS NOTES Patient Name: Sav Raymundo SERVICE DATE: 07/21/2024 SERVICE TIME: 2:25 PM HPI: Mr. Raymundo is a 74 year old male who presents for Effusion.Has been emptying Plerax catheter daily.Has been seeing store receiver at [facility].Pleural fluid analysis has been done MEDICATIONS: Current Outpatient Medications Medication Sig Dispense Refill potassium chloride ER (KLOR-CON M20) 20 mEq tablet Take 2 tablets by mouth two times a day. 360 tablet 0 torsemide (DEMADEX) 100 mg tablet Take 1 tablet by mouth once daily. 90 tablet 0 calcium odj-reb-N6-Zn-copy chief-kian 250 mg-40 mg- 125 unit-3.75mg tab Take [...] diaphragmatic excursion. Lungs clear to auscultation. Heart: Lohn normal. Precordium quiet. RRR. Normal HS with [...] 2024 TIME: 2:25 PM documented in this encounterTrinity Health [facility]02-03-2025 History of Present illness Narrative* Triston Riggs MD - 07/20/2024 1:00 PM EST Images from the original note were not included. [facility] Pulmonary Consultation CC: Persistent RIGHT pleural effusion Sav Raymundo is a 74 year old male sent by Dr. STEPHANE Cesar MD for evaluation of persistent RIGHT pleural effusion. My final recommendations will be communicated to the requesting health care provider by way of the shared medical record for internal providers or letter via the [employer] for external providers. Assessment and [...] did he have some sense of limitation. [facility] [place], [place] is home care provider. Excerpt from Dr Cesar 05/20/2024. Mr Raymundo is a 71 y/o, from [facility], here for follow-up for pleural effusion. He [...] referred for pleurodesis to thoracic surgery in [place], which he underwent inJune 2023. Though no [...] other day) -Rheumatologic assessment done, workup negative, trimming machine set up operator has no evidence of any autoimmune disease -Off prednisone for the last 5 months -Off Plaquenil for the past 3 weeks -On diuretics, now on torsemide Interestingly, on further discussion, mostly with trimming machine set up operator, we have uncovered that he has [...] mouth once daily. 90 tablet 0 calcium znf-pdw-G7-Zn-copy chief-kian 250 mg-40 mg- 125 unit-3.75mg tab Take [...] 0.5 04/20/2024 Abs Neut 5.91 04/20/2024 Abs Gilpin 1.03 04/20/2024 Abs Eosin <0.03 04/20/2024 Abs [...] 36 % 39 80 (H) 80 (H) Gilpin%, BF % 6 Macro%, BF 64 - [...] Pulmonology. Pulmonary, Allergy & Critical Care Medicine [facility] documented in this encounterTrinity Health System [facility]02-03-2025 [facility]01-31-2025 NoteHNO ID: [id number] Author: KATERINA CONTRERAS PA-C Service: ? Author Type: Physician Plant Electrician Type: Progress Notes Filed: 07/17/2024 14:02 Note Text: Orders for pleurX vacuum bottles signed and faxed back to [facility]. [facility] History of Present illness Narrative* Katerina Contreras PA-C - 07/17/2024 2:01 PM EST Orders for pleurX vacuum bottles signed and faxed back to [facility]. Katerina Contreras PA-C documented in this encounterTrinity Health System [facility]01-30-2025 Telephone encounter Note * Telephone Encounter - Maggie Leon - 07/16/2024 2:53 PM EST Called patient's and informed her that there isn't any indication in Dr. Riggs's office notes that request any lab work at this time. [facility]01-30-2025 Miscellaneous Notes* Telephone Encounter - Maggie Leon - 07/16/2024 2:53 PM EST Called patient's and informed her that there isn't any indication in Dr. Riggs's office notes that request any lab work at this time. * Telephone Encounter - Maggie Leon - 07/16/2024 12:45 PM EST Patient is a lab in [facility] and they only see orders for body fluid, which they are unable to do. Patient would like to confirm if blood labs will need to be drawn. If so, facility [facility] Admin will follow up at [phone] documented in this encounterTr[facility]01-30-[facility]25 Telephone encounter Note * Telephone Encounter - Maggie Leon - 07/16/2024 12:45 PM EST Patient is a lab in [facility] and they only see orders for body fluid, which they are unable to do. Patient would like to confirm if blood labs will need to be drawn. If so, facility [facility] Admin will follow up at [phone] [facility]01-28-2025 Evaluation note* Diagnosis Onset Date Resolution Status Admit Date Nausea & vomiting acuteJanuary 2024 4:27pmViral respiratory illnessacuteJanuary 2024 4:27pm [facility] Work Phone: 1(221) 497-194101-22-2025 [facility]Prom[facility]01-22-2025 History of Present illness Narrative* Katerina Contreras PA-C - 07/08/2024 9:41 AM EST Received fax from [employer] for signature for updated pleurX draining order to daily draining for 2 months. This was completed and faxed back to them. Katerina Contreras PA-C documented in this encounterTrinity [facility]01-06-2025 NoteProm[facility]01-06-2025 History of Present illness Narrative* Katerina Contreras PA-C - 06/22/2024 3:10 PM EST Per request of Dr. Riggs, we plan on increasing his pleurX catheter draining to everyday. Updated orders sent to [facility] (supplies) and [facility] (faxed to [phone]). His home nurseis Beth, work cell [phone]. She is to call us if sudden cessation of drainage or 3 subsequent drains of less than 100 ml. Katerina Contreras PA-C documented in this encounterTrinity [facility]01-06-2025 History and physical note * Triston Riggs MD - 06/22/2024 9:00 AM EST Images from the original note were not included. [facility] Consultation CC: Persistent RIGHT pleural effusion Sav Raymundo is a 74 year old male sent by Dr. STEPHANE Cesar MD for evaluation of persistent RIGHT pleural effusion. My final recommendations will be communicated to the requesting health care provider by way of the shared medical record for internal providers or letter via the [employer] for external providers. Assessment and [...] did he have some sense of limitation. [facility], [place], [place] is home care provider. Excerpt from Dr Cesar 05/20/2024. Mr Raymundo is a 71 y/o, from the [facility], here for follow-up for pleural effusion. He [...] referred for pleurodesis to thoracic surgery in [place], which he underwent inJune 2023. Though no [...] other day) -Rheumatologic assessment done, workup negative, trimming machine set up operator has no evidence of any autoimmune disease -Off prednisone for the last 5 months -Off Plaquenil for the past 3 weeks -On diuretics, now on torsemide Interestingly, on further discussion, mostly with trimming machine set up operator, we have uncovered that he has [...] Current Outpatient Medications Medication Sig Dispense Refill fmnoec-rscgrevg-jhghazq (CREON) 36,000-114,000- 180,000 unit delayed release capsule Take 2 capsules by mouth three times a day with meals. 200 capsule 1 potassium chloride ER (KLOR-CON M20) 20 mEq tablet Take 2 tablets by mouth two times a day. 360 tablet 0 torsemide (DEMADEX) 100 mg tablet Take 1 tablet by mouth once daily. 90 tablet 0 calcium yrb-nfi-G0-Zn-copy chief-kian 250 mg-40 mg- 125 unit-3.75mg tab Take [...] 0.5 04/20/2024 Abs Neut 5.91 04/20/2024 Abs Gilpin 1.03 04/20/2024 Abs Eosin <0.03 04/20/2024 Abs [...] Pulmonology. Pulmonary, Allergy & Critical Care Medicine [facility] Work Phone: 1(775) 375-937801-06-2025 History and physical note* Triston Riggs MD - 06/22/2024 9:00 AM EST Images from the original note were not included. [facility] Consultation CC: Persistent RIGHT pleural effusion Sav Raymundo is a 74 year old male sent by Dr. STEPHANE Cesar MD for evaluation of persistent RIGHT pleural effusion. My final recommendations will be communicated to the requesting health care provider by way of the shared medical record for internal providers or letter via the [employer] for external providers. Assessment and [...] did he have some sense of limitation. [facility], [place], [place] is home care provider. Excerpt from Dr Cesar 05/20/2024. Mr Raymundo is a 71 y/o, from the [place] area, here for follow-up for pleural effusion. [...] referred for pleurodesis to thoracic surgery in [place], which he underwent inJune 2023. Though no [...] other day) -Rheumatologic assessment done, workup negative, trimming machine set up operator has no evidence of any autoimmune disease -Off prednisone for the last 5 months -Off Plaquenil for the past 3 weeks -On diuretics, now on torsemide Interestingly, on further discussion, mostly with trimming machine set up operator, we have uncovered that he has [...] Current Outpatient Medications Medication Sig Dispense Refill xtimcb-tosvathd-idzuwbx (CREON) 36,000-114,000- 180,000 unit delayed release capsule Take 2 capsules by mouth three times a day with meals. 200 capsule 1 potassium chloride ER (KLOR-CON M20) 20 mEq tablet Take 2 tablets by mouth two times a day. 360 tablet 0 torsemide (DEMADEX) 100 mg tablet Take 1 tablet by mouth once daily. 90 tablet 0 calcium qly-nel-D1-Zn-copy chief-kian 250 mg-40 mg- 125 unit-3.75mg tab Take [...] and report, dated 04/22/2024 and compared to [facility] CT abdomen on 12/20/2023. I agree with [...] 0.5 04/20/2024 Abs Neut 5.91 04/20/2024 Abs Gilpin 1.03 04/20/2024 Abs Eosin <0.03 04/20/2024 Abs [...] with transudate. F/u: 4 - 6 weeks.. rTiston Riggs M.D. Staff, Interventional Pulmonology. Pulmonary, Allergy & Critical Care Medicine [facility] documented in this encounterTrinity Health [facility]12-27-2024 History of Present illness Narrative* [...] 2 in PM) 120 tablet 2 calcium ehz-xjj-B4-Zn-copy chief-kian 250 mg-40 mg- 125 unit-3.75mg tab Take [...] Take 1 tablet by mouth once daily. knrown-rgpymhnv-ceaivdu (CREON) 36,000-114,000- 180,000 unit delayed release capsule [...] diaphragmatic excursion. Lungs clear to auscultation. Heart: Lohn normal. Precordium quiet. RRR. Normal HS with [...] 2024 TIME: 3:04 PM documented in this encounterTrinity Health [facility]12-18-2024 NotePromed[facility]ost[facility]12-18-2024 History of Present illness Narrative* Steffen Mccarty MD - 06/03/2024 10:23 AM EST Images from the original note were not included. Rheumatology FOLLOW UP VISIT Date of Service: 06/01/2024 Patient: Sav Raymundo Medical Record: [id number] Primary Care Physician: Yuli Mariscal DO Last [...] PMHx except for bilateral knee replacements and [place] fracture s/p surgery who presents for evaluation [...] underwent on 11/20/2023 R VATS with R wind turbine mechanic and doxyxyclyine pleurodesis, pleural biopsy. Biopsy [...] in Am and 2 in PM) calcium ylw-obj-X8-Zn-copy chief-kian 250 mg-40 mg- 125 unit-3.75mg tab Take [...] AI <0.2 Sm Antibody Negative Negative Ribosomal IMMIGRATION COORDINATOR Ab <1.0 AI <0.2 Ribosomal IMMIGRATION COORDINATOR Qualitative Negative Negative Chromatin Ab <1.0 AI <0.2 Chromatin Ab Qual Negative Negative SSA Antibody Qual Negative Negative Anti-SSA <1.0 AI <0.2 Anti-SSB <1.0 AI <0.2 IMMIGRATION COORDINATOR Antibody QUAL Negative Negative Scleroderma Ab Qual [...] on 06/01/2024 Name Date COVID-19 vaccine, monovalent ([employer]) 09/13/2020, 08/22/2020, 08/15/2020 influenza (aIIV3) vaccine 05/09/2020 [...] Full ROM in flexion and extension. Full matrix inspector strength. No swelling or synovitis along the [...] which included preparing to see the patient, tspb-jv-fkqa patient care, completing clinical documentation, obtaining and/or reviewing separately obtained history, performing a medically appropriate examination, and counseling and educating the patient/family/caregiver. Steffen Villa MD Rheumatology Date: June 03, 2024 Time: 10:43 AM documented in this encounterTrinity Health [facility]12-10-2024 History of Present illness Narrative* [...] times a day. 120 tablet 2 calcium omp-jrj-J3-Zn-copy chief-kian 250 mg-40 mg- 125 unit-3.75mg tab Take [...] 26, 2024 9:42 AM documented in this encounterTrinity Health [facility]12-10-2024 NotePromed[facility]12-09-2024 Telephone encounter Note* Telephone Encounter - Marcy Longoria - 05/25/2024 12:15 PM EST Spoke with spouse to schedule appt /6 [facility]12-09-2024 Miscellaneous Notes* Telephone Encounter - Marcy Longoria - 05/25/2024 12:15 PM EST Spoke with spouse to schedule appt 1/6 documented in this encounterTrinity Health [facility]12-02-2024 Instructions* Patient Instructions* Louise Cesar [...] CT scan and see Interventional Pulmonary in [facility] or [place]. Pleuroscopy could be considered but difficult after Angelique chest surgery (VATS pleurodesis) Next steps to do - see Interventional Pulmonary Dr. Riggs/Vicki with CT scan - stay tuned. Please check in if you don't hear anything in the next 2-[address] Diana Cesar MD Pulmonary and Critical Care Medicine [facility] documented in this encounterTrinity Health [facility]12-02-2024 History of Present illness Narrative* Vijay Cameron [...] PATIENT PRESENTS WITH AN IMPLANTABLE OR ATTACHED IRONER MACHINE: No RADIOLOGY DEPARTMENT: General X-ray: Exam(s) Completed: Chest X-Ray PERIPHERAL IV DATA: Not applicable SIGNED BY: RT Rosaline(R) May 18, 2024 10:54 AM documented in this encounterTrinity Health [facility]12-02-2024 [facility]12-02-2024 NotePromedica [facility]12-02-2024 History of Present illness Narrative* Louise Cesar MD - 05/18/2024 10:55 AM EST Images from the original note were not included. INTERVAL HPI: Willie is a gentleman in his 70s, from the [facility], here for follow-up for pleural effusion. He [...] referred for pleurodesis to thoracic surgery in [place], which he underwent inJune 2023. Though no [...] other day) -Rheumatologic assessment done, workup negative, trimming machine set up operator has no evidence of any autoimmune disease -Off prednisone for the last 5 months -Off Plaquenil for the past 3 weeks -On diuretics, now on torsemide Interestingly, on further discussion, mostly with trimming machine set up operator, we have uncovered that he has [...] pleural effusion s/p R-VATS pleural biopsy, right wind turbine mechanic and doxycycline pleurodesis, right Pleurx catheter insertion, on 12/10/2023. Mr. Kumar presents with an interesting history. He is a semiretired gentleman from the [facility], with virtually no past medical history, very [...] and he was referred to a local store receiver. He underwent thoracentesis several times, each time pleural fluid analysis showed exudative fluid. CT scan was obtained locally which did not reveal much except pleural effusion. CT scan also shows pericardial effusion. He was then referred by his local store receiver to [place] for a pleurodesis. In November 2023, he underwent VATS pleurodesis (mechanical and doxycycline), with pleural biopsy, and the Pleurx catheter was also placed. Analysis of the pleural fluid and biopsies of the pleura showed acute and chronic pleuritis with organization, but no malignancy. We do not have pleural fluid chemical or hematological analysis done in [place], but cytology was negative for malignant cells. He was discharged with Pleurx catheter, and and has been draining pleural fluid about 500 to 800 mLevery other day. And his dry cough has also been persistent. In December 2023, he was sent to [facility] after seeing thoracic surgery ADRIENNE for [...] He is scheduled to see rheumatology in [facility] in the next 2 weeks. Of note [...] PCP, Dr. 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 Outpatient Medications: calcium kln-ngb-R9-Zn-copy chief-kian 250 mg-40 mg- 125 unit-3.75mg tab Take [...] personally reviewed by me Data Reviewed from [facility] (in addition to that noted in HPI, and Past histories above): CMP, CBC Testing data, personally reviewed and interpreted by me: PFT, Imaging, Labs, CVS data. 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 Flood (Thoracic), scheduled to see trimming machine set up operator in [facility] Social:Lives near [place], in own house, with , no pets, adult kids, just 1 daughter who lives in [place], 2 grand-kids, no lung disease in the [...] CT scan and see Interventional Pulmonary in [facility] or [place]. Pleuroscopy could be considered but difficult after Angelique chest surgery (VATS pleurodesis) Sav Raymundo understands the plan and discussion and is comfortable with it. I spent a total of 45 minutes on the date of the service which included preparing to see the patient, qzju-rj-xbfg patient care, completing clinical documentation, obtaining and/or reviewing separately obtained history, performing a medically appropriate examination, counseling and educating the pat ient/family/caregiver, ordering medications, tests, or procedures, independently interpreting results (not separately reported), and care coordination (not separately reported). Louise Cesar MD documented in this encounterTrinity Health [facility]11-27-2024 History of Present illness Narrative* [...] two times a day. 60 tablet 0 OCHYQTY-GIRTTSJCA-EJEL ORAL Take by mouth. iv contrast (will [...] 1 tablet by mouth once daily. calcium vxa-gpd-X1-Zn-copy chief-kian 250 mg-40 mg- 125 unit-3.75mg tab Take [...] diaphragmatic excursion. Lungs clear to auscultation. Heart: Lohn normal. Precordium quiet. RRR. Normal HS with [...] 2024 TIME: 11:13 AM documented in this encounterTrinity Health [facility]11-21-2024 Telephone encounter Note * Telephone Encounter - Britney Hsu RN - 05/07/2024 7:29 PM EST . [facility]11-21-2024 Miscellaneous Notes* Telephone Encounter - Britney Hsu RN - 05/07/2024 7:29 PM EST . documented in this encounterTrinity Health [facility]11-12-2024 History and physical note * [...] MAC Additional Comments: None Vic Ponce MD [facility]11-12-2024 History and physical note* Vic [...] None Vic Ponce MD documented in this encounterTrinity Health [facility]11-12-2024 Nurse Note* Jahaira Hood RN [...] PROVIDED TO PATIENT: None REFERRAL (RECOMMENDATION): None [facility]11-12-2024 Nurse Note* Jahaira Hood RN [...] Signed By: Maureen Laughlin documented in this encounterTrinity Health System [facility] Center11-12-2024 Nurse Note* Maureen Laughlin RN [...] (RECOMMENDATION): None Electronically Signed By: Maureen Laughlin [facility]11-06-2024 History of Present illness Narrative* [...] this RN, 2 attempts by Tonya Wagner blood or blood bank technician. Patient requests to try again to [...] PATIENT PRESENTS WITH AN IMPLANTABLE OR ATTACHED IRONER MACHINE: No RADIOLOGY DEPARTMENT: CT; Exam(s) Completed: Enterography PERIPHERAL IV DATA: Not applicable SIGNED BY: RT Tyree(R) April 22, 2024 11:55 AM documented in this encounterTrinity Health [facility]11-06-2024 NotePromed[facility]11-06-2024 NotePromed[facility]11-05-2024 NoteCALPROTECTIN, FECAL INTERPBorderline elevated. Re-evaluation in 4-6 weeks is recommended if clinically indicated.(A)Gptzdl0004/21/2024 9:04 PM ESTAccess [facility] on above:Interpretation: <50.0 ug/g: Normal 50.0 ug/g - 120.0 ug/g: Borderline elevated. Re-evaluation in 4-6 weeks is recommended if clinically indicated. >120.0 ug/g: Elevated 04-20-2024 NoteBorderline elevated. Re-evaluation in 4-6 weeks is recommended if clinically indicated.[facility] on above:Order Comment: Specimen Type: STOOL SPECIMENOrdering Facility: [facility] Address:[address] [place], [place] [address]Result Comment: Interpretation:<50.0 ug/g: Yxpuxr14.0 ug/g - 120.0 ug/g: Borderline elevated. Re-evaluation in 4-6 weeks is recommended if clinically indicated.>120.0 ug/g: ElevatedPerformed By: #### [id number], [id number], PANCEF ####[facility] LABCLIA [id number] [place] [address] [place] 04-20-2024 Instructions* Patient [...] am on dialysis? A: Please consult your fabricator foam rubber prior to scheduling to get instructions pertinent [...] to inadequate prep quality. documented in this encounterTrinity Health [facility]11-04-2024 NotePromedica Fostoria [facility]11-04-2024 History of Present illness Narrative* Sue Terrell MD - 04/20/2024 11:46 AM EST NAME: Sav Raymundo [facility] NO: [id number] REASON FOR VISIT Sav Raymundo is a [...] Current Outpatient Medications Medication Sig Dispense Refill HDLXLND-ENUAGMHOC-OSTS ORAL Take by mouth. iv contrast (will [...] 20, 2024 11:46 AM documented in this encounterTrinity Health System [facility] Center10-15-2024 History of Present illness Narrative* Steffen Mccarty MD - 03/31/2024 4:33 PM EDT Images from the original note were not included. Rheumatology CONSULTATION Date of Service: 03/30/2024 Patient: Sav Raymundo Medical Record: [id number] Primary Care Physician: Yuli Mariscal DO Last Rheumatology visit: 03/30/2024 (with Steffen Villa) Referring Provider: Tita Landry [address] [facility] [address] Sav Raymundo is here today at request of Tita Haywood, LETICIA.SEO SPECIALIST specifically for consultation of my opinion in regards to the chief complaint listed below. Correspondence will be sharedtoday via the [employer] electronic health record or through regular mail, [...] PMHx except for bilateral knee replacements and [place] fracture s/p surgery who presents for evaluation [...] underwent on 11/20/2023 R VATS with R wind turbine mechanic and doxyxyclyine pleurodesis, pleural biopsy. Biopsy [...] Current Medications Current Outpatient Medications Medication Sig HLUDTDC-SLICANCMO-NJBA ORAL Take by mouth. iv contrast (will [...] AI <0.2 Sm Antibody Negative Negative Ribosomal IMMIGRATION COORDINATOR Ab <1.0 AI <0.2 Ribosomal IMMIGRATION COORDINATOR Qualitative Negative Negative Chromatin Ab <1.0 AI <0.2 Chromatin Ab Qual Negative Negative SSA Antibody Qual Negative Negative Anti-SSA <1.0 AI <0.2 Anti-SSB <1.0 AI <0.2 IMMIGRATION COORDINATOR Antibody QUAL Negative Negative Scleroderma Ab Qual [...] on 03/30/2024 Name Date COVID-19 vaccine, monovalent ([employer]) 09/13/2020, 08/22/2020, 08/15/2020 influenza (aIIV3) vaccine 05/09/2020 [...] which included preparing to see the patient, gqcm-qu-oafw patient care, completing clinical documentation, obtaining and/or reviewing separately obtained history, performing a medically appropriate examination, and counseling and educating the patient/family/caregiver. Steffen Villa MD Rheumatology Date: March 31, 2024 Time: 4:33 PM documented in this encounterTrinity Health System [facility]10-01-2024 History of Present illness Narrative* [...] PATIENT PRESENTS WITH AN IMPLANTABLE OR ATTACHED IRONER MACHINE: No ALLERGIES: Reviewed and unchanged CONTRAST ALLERGY: [...] 2024 TIME: 4:04 PM documented in this encounterTrinity Health System [facility] Center10-01-2024 NoteHNO ID: [id number] Author: JUAN SON RT(R) Service: Radiology Author Type: Abstractor Type: Progress Notes Filed: 03/17/2024 16:04 Note [...] PATIENT PRESENTS WITH AN IMPLANTABLE OR ATTACHED IRONER MACHINE: No ALLERGIES: Reviewed and unchanged CONTRAST ALLERGY: [...] Raymundo DATE: March 17, 2024 TIME: 4:04 [id number] History of Present illness Narrative* Ruma Oshea PA-C - 03/17/2024 1:30 PM EDT Images from the original note were not included. [facility] - OUTPATIENT THORACIC SURGERY CLINIC NOTE PT NAME: Sav Raymundo [facility] NO: [id number] THORACIC SURGEON: Ronaldo Flood M.D. 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 Right pleura, biopsy: - Chronic pleuritis with mesothelial hyperplasia (see comment). B. Right pleura, biopsy: - Acute organizing and chronic pleuritis (see comment). IA/ 11/22/2023 Diagnosis Comment A. The biopsy contains [...] reactive proliferation. Drs. 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 He was hospitalized 12/20/23 for anasarca, possible autoimmune disease, recurrent pleural effusion. Imaging did not reveal any acute findings. Patient was admitted to [facility] and started on lasix drip, improving anasarca and pleural effusion. Pleurx catheter was drained daily with significantly decreasing output [phone]. He was worked up for an autoimmune [...] presents to clinic today for postoperative visit. [facility] RN called in 03/03 reporting increase in [...] effusion s/p R VATS pleural biopsy, right wind turbine mechanic and doxycycline pleurodesis, right Pleurx catheter insertion, right 20Fr chest tube insertion on 11/20/[address] Flood. He was hospitalized 12/20/23 for anasarca, possible autoimmune disease, and recurrent pleural effusion. Imaging did not reveal any acute findings. Patient was admitted to [facility] and started on lasix drip, with improving anasarca and pleural effusion. Pleurx catheter was drained daily with significantly decreasing output [phone]. He was worked up for an autoimmune disease as well. He was discharged on an increased dose of lasix (20mg > 80mg) and started on Plaquenil. PLAN: - continue draining pleurx every 3 days - call our office if any new or worsening symptoms - follow up with trimming machine set up operator 04/13 for their recommendations - discussed with patient to reach out to our office with rheum recommendations, as well as if pleurx output has significantly decreased to discuss removing pleurx Ruma Oshea PA-C documented in this encounterTrinity Health System [facility]10-01-2024 NoteHNO ID: [id number] Author: RUMA OSHEA PA-C Service: ? Author Type: Physician Plant Electrician Type: Progress Notes Filed: 03/17/2024 14:26 Note Text: [facility] - OUTPATIENT THORACIC SURGERY CLINIC NOTE PT NAME: [facility] NO: [id number] THORACIC SURGEON: Ronaldo Flood M.D. 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 Right pleura, biopsy: - Chronic pleuritis with mesothelial hyperplasia (see comment). B. Right pleura, biopsy: - Acute organizing and chronic pleuritis (see comment). IA/ 11/22/2023 Diagnosis Comment A. 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 He was hospitalized 12/20/23 for anasarca, possible autoimmune disease, recurrent pleural effusion. Imaging did not reveal any acute findings. Patient was admitted to [facility] and started on lasix drip, improving anasarca and pleural effusion. Pleurx catheter was drained daily with significantly decreasing [id number]. He was worked up for an autoimmune [...] up with rheum 04/13. Patient notes today th (more content not included)...[facility] 03-17-2024 History of Present illness Narrative* WasWes, TRANSLATOR INTERPRETER - 03/17/2024 1:29 PM EDT PULM FUNCTION: Provider: Louise Cesar MD DLCO: 1 LV - Box: 1 documented in this encounterTr[facility] Instructions* Patient Instructions* Louise Cesar [...] Cesar MD Pulmonary and Critical Care Medicine [facility] documented in this encounterTrinity [facility]10-01-2024 NoteHNO ID: [id number] Author: LOUISE CESAR MD Service: ? Author Type: Physician Type: Progress Notes Filed: 03/18/2024 08:55 Note Text: Mr. Raymundo is a 74 year old male who [facility] the [facility] Res[facility]. Consultation requested by Dr. Hopper and Dr. Ronaldo Flood. My final recommendations/evaluation will be communicated back to the requesting physician by way of shared medical record or letter via US mail. This note was partially created using [employer]? Voice recognition software and is inherently subject to errors including those of syntax and ?sound-alike? substitutions which may escape proofreading. In such instances, original meaning may be extrapolated by contextual derivation. 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 Mr. Kumar presents with an interesting history. He is a semiretired gentleman from the [facility], with virtually no past medical history, very [...] and he was referred to a local store receiver. He underwent thoracentesis several times, each time pleural fluid analysis showed exudative fluid. CT scan was obtained locally which did not reveal much except pleural effusion. CT scan also shows pericardial effusion. He was then referred by his local store receiver to [place] for a pleurodesis. In November 2023, he underwent VATS pleurodesis (mechanical and doxycycline), with pleural biopsy, and the Pleurx catheter was also placed. Analysis of the pleural fluid and biopsies of the pleura showed acute and chronic pleuritis with organization, but no malignancy. We do not have pleural fluid chemical or hematological analysis done in [place], but cytology was negative for malignant cells. He was discharged with Pleurx catheter, and and has been draining pleural fluid about 500 to 800 mL every other day. And his dry cough has also been persistent. In December 2023, he was sent to [facility] after seeing thoracic surgery ADRIENNE for [...] He is scheduled to see rheumatology in [facility] in the next 2 weeks. Of note [...] year old male who presents to the [facility] Res[facility]. Consultation requested by Dr. Hopper and Dr. Ronaldo Flood. My final recommendations/evaluation will be communicated back to the requesting physician by way of shared medical record or letter via [place] mail. This note was partially created using [employer] Voice recognition software and is inherently subject to errors including those of syntax and sound-alike substitutions which may escape proofreading.In such instances, original meaning may be extrapolated by contextual derivation. 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 Mr. Kumar presents with an interesting history. He is a semiretired gentleman from the [facility] [employer], with virtually no past medical history, very [...] and he was referred to a local store receiver. He underwent thoracentesis several times, each time pleural fluid analysis showed exudative fluid. CT scan was obtained locally which did not reveal much except pleural effusion. CT scan also shows pericardial effusion. He was then referred by his local store receiver to [place] for a pleurodesis. In November 2023, he underwent VATS pleurodesis (mechanical and doxycycline), with pleural biopsy, and the Pleurx catheter was also placed. Analysis of the pleural fluid and biopsies of the pleura showed acute and chronic pleuritis with organization, but no malignancy. We do not have pleural fluid chemical or hematological analysis done in [place], but cytology was negative for malignant cells. He was discharged with Pleurx catheter, and and has been draining pleural fluid about 500 to 800 mLevery other day. And his dry cough has also been persistent. In December 2023, he was sent to [facility] after seeing thoracic surgery ADRIENNE for [...] He is scheduled to see rheumatology in [facility] in the next 2 weeks. Of note [...] PCP, Dr. Flood (Thoracic), scheduled to see trimming machine set up operator in [facility] [place] Social:Lives near [place], in own house, with , no pets, adult kids, just 1 daughter who lives in [place], 2 grand-kids, no lung disease in the [...] Onset Heart Father Allergies: Tramadol Outpatient Medications: [id number]-[id number]-FIDN ORAL Take by mouth. diclofenac (VOLTAREN) 1 [...] personally reviewed by me Data Reviewed from [facility] (in addition to that noted in HPI, and Past histories above): CMP, CBC Testing data, personally reviewed and interpreted by me: PFT, Imaging, Labs, CVS data. 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 Flood (Thoracic), scheduled to see trimming machine set up operator in [facility] [place] Social:Lives near [place], in own house, with , no pets, adult kids, just 1 daughter who lives in [place], 2 grand-kids, no lung disease in the [...] which included preparing to see the patient, qntt-bh-[id number] patient care, completing clinical documentation, obtaining and/or reviewing separately obtained history, performing a medically appropriate examination, counseling and educating the pat ient/family/caregiver, ordering medications, tests, or procedures, independently interpreting results (not separately reported), and care coordination (not separately reported). Louise Cesar MD documented in this encounterTrinity [facility]10-01-2024 Nurse Note* Jacqueline García RN - 03/17/2024 10:17 AM EDT Sav Raymundo is a very pleasant 74 year old male who presents today for pleural effusion (November 19), still has chest drainage tube Pleurex tube After surgery, fluid still gathering around right lung. Last seen by Pulmonary Doctor? Dr. Clemente in [facility]. Outside of [facility] Is Dr. Cesar on Care Team as Concrete Truck Driver? no Meds reviewed - Refills pended?no Since last seen Have you had any resp illnessses, COVID, exacerbations or recent visits to ER?hospital/Urgent-Care? [place] December 19 x 1 week, Vaccines: Immunization History Administered Date(s) Administered COVID-19 original vaccine, age 12+ yr, monovalent ([employer] - PURPLE TOP) 08/15/2020 08/22/2020 09/13/2020 05/10/2021 influenza (aIIV3) vaccine, age 65+ yr, trivalent, PF (FLUAD) 05/09/2020 pneumococcal conjugate (PCV13) vaccine, 13 valent (PREVNAR 13) 11/26/2016 pneumococcal polysaccharide (PPV23) vaccine, 23 valent (PNEUMOVAX 23) 02/03/2018 tetanus diphtheria (Td) vaccine, age 7+ yr, 5 Lf tetanus, PF (TENIVAC) 06/04/2018 08/30/2018 zoster (RZV) vaccine, recombinant (SHINGRIX) 08/30/2018 Modified Medical Research [place] Dyspnea Scale (MMRC) I stop for breath after walking about 100 yards or after a few minutes on level ground 3 Patient Entered Questionnaires 10/23/2023 PROMIS Global Health - (T-Scores - the mean of general population = 50. Five points is a clinicallymeaningful difference.) Physical T-Score 44.9 Mental T-Score 43.5 [facility]10-01-[facility]24 Nurse Note* Jacqueline García RN - 03/17/2024 10:17 AM EDT Sav Raymundo is a very pleasant 74 year old male who presents today for pleural effusion (November 19), still has chest drainage tube Pleurex tube After surgery, fluid still gathering around right lung. Last seen by Pulmonary Doctor? Dr. Clemente in [facility]. [facility] of [facility] Is Dr. Cesar on Care Team as Concrete Truck Driver? no Meds reviewed - Refills pended?no Since last seen Have you had any resp illnessses, COVID, exacerbations or recent visits to ER?hospital/Urgent-Care? [place] December 19 x 1 week, Vaccines: Immunization History Administered Date(s) Administered COVID-19 original vaccine, age 12+ yr, monovalent ([employer] - PURPLE TOP) 08/15/2020 08/22/2020 09/13/2020 05/10/2021 influenza (aIIV3) vaccine, age 65+ yr, trivalent, PF (FLUAD) 05/09/2020 pneumococcal conjugate (PCV13) vaccine, 13 valent (PREVNAR 13) 11/26/2016 pneumococcal polysaccharide (PPV23) vaccine, 23 valent (PNEUMOVAX 23) 02/03/2018 tetanus diphtheria (Td) vaccine, age 7+ yr, 5 Lf tetanus, PF (TENIVAC) 06/04/2018 08/30/2018 zoster (RZV) vaccine, recombinant (SHINGRIX) 08/30/2018 Modified Medical Research [place] Dyspnea Scale (MMRC) I stop for breath after walking about 100 yards or after a few minutes on level ground 3 Patient Entered Questionnaires 10/23/2023 PROMIS Global Health - (T-Scores - the mean of general population = 50. Five points is a clinicallymeaningful difference.) Physical T-Score 44.9 Mental T-Score 43.5 documented in this encounterTr[facility]10-01-2024 History of Present illness Narrative* Alan Delgado RT(Tj) - 03/17/2024 9:15 AM EDT Radiology Service [...] PATIENT PRESENTS WITH AN IMPLANTABLE OR ATTACHED IRONER MACHINE: N/A RADIOLOGY DEPARTMENT: General X-ray: Exam(s) Completed: Chest X-Ray PERIPHERAL IV DATA: Not applicable SIGNED BY: Lilia CANTU(R) March 17, 2024 8:38 AM documented in this encounterTrinity [facility]10-01-2024 NoteHNO ID: [id number] Author: ALAN DELGADO RT(R) Service: Radiology Author [...] PATIENT PRESENTS WITH AN IMPLANTABLE OR ATTACHED IRONER MACHINE: N/A RADIOLOGY DEPARTMENT: General X-ray: Exam(s) Completed: Chest X-Ray PERIPHERAL IV DATA: Not applicable SIGNED BY: Lilia CANTU(R) March 17, 2024 8:38 [facility]10-01-2024 NoteHNO ID: [id number] Author: CHELSY HILLS RRT Service: ? Author Type: Registered Resp Therapist Type: Progress Notes Filed: 03/17/2024 08:16 Note Text: PULM FUNCTION: Provider: Katerina Bravo APRN.CNP Spirometry: 1 Exhaled Nitric Oxide: [address] [place], [place] 4835310-01-2024 History of Present illness Narrative* Chelsy Hills RRT - 03/17/2024 8:16 AM EDT PULM FUNCTION: Provider: Katerina Bravo APRN.CNP Spirometry: 1 Exhaled Nitric Oxide: 1 documented in this encounterTr[facility]10-01-2024 NoteHNO ID: [id number] Author: CHELSY HILLS RRT Service: ? Author [...] Raymundo DATE: March 17, 2024 TIME: 8:16 [facility]10-01-2024 Procedure note* Chelsy Hills RRT - [...] DATE: March 17, 2024 TIME: 8:16 AM [facility]10-01-2024 Procedure note* Chelsy Hills RRT [...] 2024 TIME: 8:16 AM documented in this encounterTr[facility]09-17-2024 Telephone encounter Note * Telephone Encounter - Wes Lorenzana RN - 03/03/2024 10:55 AM EDT Images from the original note were not included. [facility] Phone Encounter DATE of SERVICE: 03/03/2024 TIME of SERVICE: 10:56 AM Status: FYI Service/Provider: Thoracic Surgery Ronaldo Flood M.D. Reason for call: Other Issue Contact information: [phone] Resolution: Sent to [employer] Comments: Please call [facility] EVAN Campos back at [phone]. Wes Lorenzana RN Date of Resolution: 03/03/2024 Time of Resolution 10:56 AM [facility]09-17-2024 Miscellaneous Notes* Telephone Encounter - Wes Lorenzana RN - 03/03/2024 10:55 AM EDT Images from the original note were not included. [facility] [place] Phone Encounter DATE of SERVICE: 03/03/2024 TIME of SERVICE: 10:56 AM Status: FYI Service/Provider: Thoracic Surgery Ronaldo Flood M.D. Reason for call: Other Issue Contact information: [phone] Resolution: Sent to [employer] Comments: Please call [facility] EVAN Campos back at [phone]. Wes Lorenzana RN Date of Resolution: 03/03/2024 Time of Resolution 10:56 AM documented in this encounterTrinity [facility]09-17-2024 Telephone encounter Note * Telephone Encounter - Wes Lorenzana RN - 03/03/2024 10:50 AM EDT Beth [facility] called back. Please give call when able. [facility]09-17-2024 Miscellaneous Notes* Telephone Encounter - Wes Lorenzana RN - 03/03/2024 10:50 AM EDT Beth [facility] called back. Please give call when able. * Telephone Encounter - Tita Landry APRN.CNP - 03/03/2024 10:46 AM EDT Returned [facility] RNBeth's phone call. States patient's pleurx output [...] Dr. Hopper's office to update him. Instructed [facility] RN to increase draining to three times weekly until output slows back down. Instructed to have patient call Dr. Hopper's office to schedule an appointment for evaluation of worsening edema and weight gain. Tita Landry APRN.CNP 03/03/2024 10:46 AM * Telephone Encounter - Sherie Payne RN - 03/03/2024 9:54 AM EDT Beth from [facility] [phone] She wanted to speak with Tita Rodriguez CNP. documented in this encounterTr[facility]09-17-2024 Telephone encounter Note * Telephone Encounter - Tita Landry APRN.CNP - 03/03/2024 10:46 AM EDT Returned [facility] RNBeth's phone call. States patient's pleurx output [...] Dr. Hopper's office to update him. Instructed [facility] RN to increase draining to three times weekly until output slows back down. Instructed to have patient call Dr. Hopper's office to schedule an appointment for evaluation of worsening edema and weight gain. Tita Landry APRN.CNP 03/03/2024 10:46 AM [facility]09-17-[facility]24 Telephone encounter Note* Telephone Encounter - Sherie Payne RN - 03/03/2024 9:54 AM EDT Beth from [facility] [phone] She wanted to speak with Tita Rodriguez CNP. [facility]09-06-[facility]24 Telephone encounter Note* Telephone Encounter - Patricia Bermudez RN - 02/21/2024 10:14 AM EDT spoke with [facility] RN Beth , pt notes he has [...] pleurex at home on their own) PH [phone] [facility] RN. will review updates above with FADI and await any updates appt with puldiana and margaret 03/17 and rhediana 04/13 for followup Patricia Bermudez RN [facility]09-06-2024 Miscellaneous Notes* Telephone Encounter - Patricia Bermudez RN - 02/21/2024 10:14 AM EDT spoke with [facility] RN Beth , pt notes he has [...] pleurex at home on their own) PH [phone] [facility] RN. will review updates above with FADI and await any updates appt with puldiana and margaret 03/17 and rhediana 04/13 for followup Patricia Bermudez RN documented in this encounterTrinity [facility]08-28-2024 History of Present illness Narrative* [...] excursion. Lungs clear to auscultation.+Pleurax catheter Heart: Lohn normal. Precordium quiet. RRR. Normal HS with [...] 200 MG TABLET - Will see a trimming machine set up operator on 04/13/2024 2. Primary hypertension - [...] 2024 TIME: 11:22 AM documented in this encounterTrinity [facility]08-27-2024 History of Present illness Narrative* [...] has no purpura and a negative R[place]el [place] sign. Pupils are equal at 2 mm [...] reviewing the medication list, performing clinical documentation, [id number] history, the examination, counseling the patient, ordering medications, tests or procedures and communicating the results to this patient. An opportunity for this individual to ask questions was provided. Understanding of the information given, the conclusions of this visit and my recommendations were acknowledged by Mr. Raymundo. Yehuda Dial MD documented in this encounterTrinity Health [facility]08-20-2024 NoteHNO ID: [id number] Author: TITA LANDRY APRN.CNP Service: ? Author Type: Nurse Practitioner Type: Progress Notes Filed: 02/05/2024 16:19 Note Text: Heart, Vascular and Thoracic Pound DEPARTMENT OF THORACIC SURGERY OUTPATIENT VISIT DATE February 04, 2024 OUTPATIENT VISIT TYPE ESTABLISHED PT NAME: Sav Cantu [facility] NO: [id number] THORACIC SURGEON: Ronaldo Flood M.D. 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 Right pleura, biopsy: - Chronic pleuritis with mesothelial hyperplasia (see comment). B. Right pleura, biopsy: - Acute organizing and chronic pleuritis (see comment). IA/ 11/22/2023 Diagnosis Comment A. 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 He was hospitalized 12/20/23 for anasarca, possible autoimmune disease, recurrent pleural effusion. Imaging did not reveal any acute findings. Patient was admitted to [facility] and started on lasix drip, improving anasarca and pleural effusion. Pleurx catheter was drained daily with significantly decreasing [id number]. He was worked up for an autoimmune [...] History of Present illness Narrative* Tita Landry APRN.SEO SPECIALIST - 02/04/2024 1:28 PM EDT Heart, Vascular and Thoracic Pound DEPARTMENT OF THORACIC SURGERY OUTPATIENT VISIT DATE February 04, 2024 OUTPATIENT VISIT TYPE ESTABLISHED PT NAME: Sav Raymundo CLINIC NO: [id number] THORACIC SURGEON: Ronaldo Flood M.D. 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 Right pleura, biopsy: - Chronic pleuritis with mesothelial hyperplasia (see comment). B. Right pleura, biopsy: - Acute organizing and chronic pleuritis (see comment). IA/ 11/22/2023 Diagnosis Comment A. 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 He was hospitalized 12/20/23 for anasarca, possible autoimmune disease, recurrent pleural effusion. Imaging did not reveal any acute findings. Patient was admitted to [facility] and started on lasix drip, improving anasarca and pleural effusion. Pleurx catheter was drained daily with significantly decreasing output [phone]. He was worked up for an autoimmune [...] He is scheduled to see PCP and Derrick Follower next week. He has followed-up with local Concrete Truck Driver, and was referred to Concrete Truck Driver at [facility], which is scheduled on 03/17 with spirometry. Right pleurx drainage has significantly decreased since last visit; now less than 350cc/drainage every MWF. Right pleurx catheter with 150 cc of awilda drainage out in clinic today. IMPRESSION: 73 year old male with pmh significant for recurrent right pleural effusion s/p R VATS pleural biopsy, right wind turbine mechanic and doxycycline pleurodesis, right Pleurx catheter insertion, right 20Fr chest tube insertion on 11/20/[address] Flood. He was hospitalized 12/20/23 for anasarca, possible autoimmune disease, and recurrent pleural effusion. Imaging did not reveal any acute findings. Patient was admitted to [facility] and started on lasix drip, with improving anasarca and pleural effusion. Pleurx catheter was drained daily with significantly decreasing output [phone]. He was worked up for an autoimmune [...] information, and changes appropriately documented/adjusted. Tita Landry APRN.SEO SPECIALIST documented in this encounterTrinity Health [facility]08-05-2024 Telephone encounter Note * Telephone Encounter - Jahaira Wood - 01/20/2024 3:35 PM EDT Received Pulmonary office note 01/15/24 from [facility] Record scanned in [employer] Jahaira Wood, front desk admin [facility]08-05-2024 Miscellaneous Notes* Telephone Encounter - Jahaira Wood - 01/20/2024 3:35 PM EDT Received Pulmonary office note 01/15/24 from [facility] Record scanned in [employer] Jahaira Wood front desk admin documented in this encounterTrinity Health [facility]07-31-2024 History of Present illness Narrative* [...] excursion. Lungs decreased BS in bases Heart: Lohn normal. Precordium quiet. RRR. Normal HS with [...] 2024 TIME: 12:34 PM documented in this encounterTrinity Health [facility]07-22-2024 History of Present illness Narrative* Yehuda Dial MD - 01/06/2024 5:01 PM EDT SUBJECTIVE: The chief complaint is right pleural effusion Mr. Raymundo relates that the visiting nurse comes to his house and drains 500 to 1000+ cc of pleural fluid every 2 days. He is concerned about taking a vacation to [place] for that reason. In addition, he complains [...] reviewing the medication list, performing clinical documentation, hvbt-[id number] history, the examination, counseling the patient, ordering medications, tests or procedures and communicating the results to this patient. An opportunity for this individual to ask questions was provided. Understanding of the information given, the conclusions of this visit and my recommendations were acknowledged by Mr. Raymundo. Yehuda Dial MD documented in this encounterTrinity Health System [facility]07-22-2024 History of Present illness Narrative* Katerina Bravo APRN.SEO SPECIALIST - 01/06/2024 3:53 PM EDT Dear Ruma Oshea PA-C, Thank you for the referral of Sav Cantu Kimberly for evaluation. Chronic Cough E-consult - Chart Reviewed. Chronic Cough: x 04/2024 History of prior Pulm evaluation: yes; Dr. Clemente with [facility] Prior PFTs: unable to locate Prior Chest [...] need to request records from [facility]'s where he store receiver is. Please arrange the following testing to be done prior to visit: Spirometry with dilator if obstructed Nitric Oxide Katerina Bravo APRN Pulmonary Medicine 01/06/2024 documented in this encounterTrinity Health System [facility]07-22-2024 History of Present illness Narrative* Ruma Oshea PA-C - 01/06/2024 2:00 PM EDT Images from the original note were not included. [facility] - OUTPATIENT THORACIC SURGERY CLINIC NOTE PT NAME: Sav Cantu Kimberly [facility] NO: [id number] THORACIC SURGEON: Ronaldo Flood M.D. 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 Patient was admitted to [facility] and started on lasix drip, improving anasarca and pleural effusion. Pleurx catheter was drained daily with significantly decreasing output [phone]. He was worked up for an autoimmune [...] clinic. 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 Will fax over recent medical information to store receiver. Patient also going on a bus trip [...] effusion s/p R VATS pleural biopsy, right wind turbine mechanic and doxycycline pleurodesis, right Pleurx catheter insertion, right 20Fr chest tube insertion on 11/20/[address] lFood. Patient overall doing well from a clinical standpoint. CXR from today is still pending; to my eye, shows slight increase in right pleural effusion when compared to CXR from 12/23. Patient continues to drain around 500cc from pleurx catheter every other day. PLAN: - follow up with TRAVELING STOREKEEPER in 4 weeks with CXR; sooner if experiencing new or worsening symptoms - continue to drain pleurx every other day / when symptomatic - follow up with store receiver Dr. Clemente - referral placed for chronic cough clinic - will send over OR report, pathology report, recent hospital discharge, recent CXR report, and today's clinic note to store receiver Dr. Bryn Oshea PA-C documented in this encounterTrinity Health System [facility]07-22-2024 NoteHNO ID: [id number] Author: RUMA OSHEA PA-C Service: ? Author Type: Physician Plant Electrician Type: Progress Notes Filed: 01/06/2024 14:58 Note Text: [facility] - OUTPATIENT THORACIC SURGERY CLINIC NOTE PT NAME: Sav Raymundo [facility] NO: [id number] THORACIC SURGEON: Ronaldo Flood M.D. 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 Patient was admitted to [facility] and started on lasix drip, improving anasarca and pleural effusion. Pleurx catheter was drained daily with significantly decreasing output [phone]. He was worked up for an autoimmune [...] clinic. 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 Will fax over recent medical information to store receiver. Patient also going on a bus trip [...] effusion s/p R VATS pleural biopsy, right wind turbine mechanic and doxycycline pleurodesis, right Pleurx catheter [...] PATIENT PRESENTS WITH AN IMPLANTABLE OR ATTACHED IRONER MACHINE: No RADIOLOGY DEPARTMENT: General X-ray: Exam(s) Completed: Chest X-Ray PERIPHERAL IV DATA: Not applicable SIGNED BY: RT Abbi(R) January 06, 2024 1:08 PM documented in this encounterTrinity Health [facility]07-22-2024 NoteHNO ID: [id number] Author: SHERIE CARRION RT(R) Service: Radiology Author [...] PATIENT PRESENTS WITH AN IMPLANTABLE OR ATTACHED IRONER MACHINE: No RADIOLOGY DEPARTMENT: General X-ray: Exam(s) Completed: Chest X-Ray PERIPHERAL IV DATA: Not applicable SIGNED BY: RT Abbi(R) January 06, 2024 1:08 PMB[facility]07-[facility] NoteHNO ID: [id number] Author: LUPE BAUER RN Service: Care Management [...] the inter-professional team: Yes Name of Caregiver: [facility] Transportation Arrangements Transportation Arrangements: Car Discharge Information Row Name ED to Hosp-Admission (Current) from 12/20/[address] [facility] Start of Care -- agency will contact patient Spouse at bedside to transport home. DC arrangements confirmed with patient, spouse, C, and bedside nurse. SIGNATURE: Lupe Bauer RN PATIENT NAME: Sav Raymundo DATE: December 26, 2023 TIME: 4:37 PM CONTACT #: [phone] NoteHNO ID: [id number] Author: YEHUDA DIAL MD Service: Rheumatology Author [...] DATA: Diagnostic tests reviewed for today's visit: [place] SPECT/CT CARDIAC AMYLOID: DATE OF EXAM: Dec 25 2023 3:56PM [facility] 0847 - [place] CARDIAC AMYLOID SPECT/CT / PROCEDURE REASON: Cardiac amyloidosis suspected, further testing * * * * Physician Interpretation * * * * RESULT: VT CTAC Report: [facility] Date [...] pathologic assessment as appropriate. Nuclear Med Report: [id number] PLANAR and SPECT: Myocardial imaging of the [...] not included)...[facility]07-10-2024 NoteHNO ID: [id number] Author: RAFIA TOVAR RT(R) Service: Nuclear Medicine [...] PATIENT PRESENTS WITH AN IMPLANTABLE OR ATTACHED IRONER MACHINE: No CREATININE: Creatinine Date Value Ref Range [...] safety can be found using this link: [email or web address]%[email or web address]%[email or web address] SIGNATURE: RT Seema(R) PATIENT NAME: Sav Raymundo DATE: December 25, 2023 TIME: 11:01 AM PAGER/CONTACT #:[facility]07-09-2024 NoteHNO ID: [id number] Author: JOSE ANTONIO HOPPER MD Service: Family [...] MD DATE: December 24, 2023 TIME: 8:05 [facility]07-08-2024 NoteHNO ID: [id number] Author: JOSE ANTONIO HOPPER MD Service: Family [...] 4:11 PMB[facility]07-08-2024 NoteHNO ID: [id number] Author: LUPE BAUER RN Service: Care Management [...] with his spouse. He is active with [facility] for long-term and pleurx supplies. Plan home with resumption of [facility]. Will need home care orders for SN prior to discharge. CM following. SIGNATURE: Lupe Bauer RN PATIENT NAME: Sav Raymundo DATE: December 23, 2023 TIME: 2:04 PM PAGER/CONTACT #: [phone] NoteHNO ID: [id number] Author: RUMA OSHEA PA-C Service: Thoracic Surgery Author Type: Physician Plant Electrician Type: Plan of Care Filed: 12/23/2023 07:53 Note Text: PLEASE PAGE [phone] WITH SURGICAL QUESTIONS OR CONCERNS. (This includes issues with chest tubes, surgical drains, feeding tubes, incisions or changes in clinical status). Thoracic Surgery - Plan of Care HPI: Sav Raymundo is a 73 y/o male referred by Alpa Oliva CNP for an opinion regarding management of recurrent right pleural effusion. 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, right Pleurx catheter [...] Dwight Oshea PA-C 12/23/2023 7:48 AM PAGER [phone]07-07-2024 NoteHNO ID: [id number] Author: JOSE ANTONIO HOPPER MD Service: Family [...] MD DATE: December 22, 2023 TIME: 11:01 [facility]07-06-2024 NoteHNO ID: [id number] Author: TRACY ROBLES LSW Service: Care Management Author Type: [employer] Programs Director Type: Care Mgt Initial Assessment Filed: 12/21/2023 13:04 Note Text: CARE MANAGEMENT: ASSESSMENT AND DISCHARGE PLAN SERVICE DATE: December 21, 2023 SERVICE TIME: 1:02 PM PCP: Yuli Mariscal DO Primary Contact: Extended Emergency Contact Information Primary Emergency Contact: Kimberly(HCPOA) Virgen Address: [address] [place] [address] [place] [address] [facility] Mobile Relation: Spouse Secondary Emergency Contact: Kimberly(1st alt HCPOADeysi Espino Address: [address] [place] [phone] Mobile Relation: Brother Admission Status: Inpatient Insurance Provider: [facility] MEDIC[facility] PPO Discharge Planning requested by: Per Department Practice Potential Transition Plans To Be Determined;Home Care Advance Directives Current Advance Directive: Health Care Power of Upholstery Instructor;Living Will In Chart: Yes Current Living Arrangements and Support Lives with: Spouse/significant other Type of Residence: Support: How do you manage to accomplish the following: Independent: Ambulation Current Services/Equipment Current Post-Acute Service(s): Skilled Home Care Discharge Planning Patient Goal(s): Be able to go home, General wellness [place] of Choice Explained: [place] of Choice Given: Yes Level of Care [...] from home with her. Patient active with [facility]- provides PE supplies- referral placed. Spouse aware floor CM to follow for dc needs NEED [facility] ORDER. SIGNATURE: BERTA Benson PATIENT NAME: Sav Raymundo DATE: December 21, 2023 TIME: 1:02 PM CONTACT #: .[facility]07-05-2024 NoteHNO ID: [id number] Author: TITA LANDRY APRN.SEO SPECIALIST Service: ? Author Type: Nurse Practitioner Type: Progress Notes Filed: 01/19/2024 21:56 Note Text: Heart, Vascular and Thoracic Pound DEPARTMENT OF THORACIC SURGERY OUTPATIENT VISIT DATE December 20, 2023 OUTPATIENT VISIT TYPE ESTABLISHED PT NAME: Sav Raymundo CLINIC NO: [id number] THORACIC SURGEON: Ronaldo Flood M.D. DATE OF SERVICE: 12/20/2023 PRINCIPAL DX: Pleural Effusion SURGICAL HX 11/20/2023: R VATS pleural biopsy, right wind turbine mechanic and doxycycline pleurodesis, right Pleurx catheter insertion, right 20Fr chest tube insertion Surgical Pathology 11/20/2023: FINAL DIAGNOSIS A. Right pleura, biopsy: - Chronic pleuritis with mesothelial hyperplasia (see comment). B. Right pleura, biopsy: - Acute organizing and chronic pleuritis (see comment). IA/ 11/22/2023 Diagnosis Comment A. The biopsy contains [...] reports pain along bot (more content not included)...[facility]07-05-2024 History of Present illness Narrative* Tita Landry APRN.SEO SPECIALIST - 12/20/2023 1:43 PM EDT Heart, Vascular and Thoracic Pound DEPARTMENT OF THORACIC SURGERY OUTPATIENT VISIT DATE December 20, 2023 OUTPATIENT VISIT TYPE ESTABLISHED PT NAME: Sav Raymundo CLINIC NO: [id number] THORACIC SURGEON: Ronaldo Flood M.D. DATE OF SERVICE: 12/20/2023 PRINCIPAL DX: Pleural Effusion SURGICAL HX 11/20/2023: R VATS pleural biopsy, right wind turbine mechanic and doxycycline pleurodesis, right Pleurx catheter insertion, right 20Fr chest tube insertion Surgical Pathology 11/20/2023: FINAL DIAGNOSIS A. Right pleura, biopsy: - Chronic pleuritis with mesothelial hyperplasia (see comment). B. Right pleura, biopsy: - Acute organizing and chronic pleuritis (see comment). IA/ 11/22/2023 Diagnosis Comment A. The biopsy contains [...] effusion s/p R VATS pleural biopsy, right wind turbine mechanic and doxycycline pleurodesis, right Pleurx catheter [...] documented/adjusted. Tita Landry APRN.CURT documented in this encounterTrinity [facility]07-02-2024 Miscellaneous Notes* Telephone Encounter - Pearl Lopez I, RN - 12/17/2023 9:39 AM EDT Images from the original note were not included. [facility] Phone Encounter DATE of SERVICE: 12/17/2023 TIME of SERVICE: 9:39 AM Status: Non-urgent, needs attention Service/Provider: Thoracic Surgery Ronaldo Flood M.D. Reason for call: Other Issue Contact information: [phone] Resolution: [facility] Comments: Received call from [facility] Nurse. States she saw patient yesterday. He [...] he can wait to be seen thisfriday. [facility] will be there tomorrow. Please advise if any further recommendations Pearl Lopez RN Date of Resolution: 12/17/2023 Time of Resolution 9:39 AM documented in this encounterTrinity Health [facility]07-02-2024 Telephone encounter Note * Telephone Encounter - Pearl Lopez I RN - 12/17/2023 9:39 AM EDT Images from the original note were not included. [facility] Phone Encounter DATE of SERVICE: 12/17/2023 TIME of SERVICE: 9:39 AM Status: Non-urgent, needs attention Service/Provider: Thoracic Surgery Ronaldo Flood M.D. Reason for call: Other Issue Contact information: [phone] Resolution: [facility] Comments: Received call from [facility] Nurse. States she saw patient yesterday. He [...] he can wait to be seen thisfriday. [facility] will be there tomorrow. Please advise if any further recommendations Pearl Lopez RN Date of Resolution: 12/17/2023 Time of Resolution 9:39 AM [facility]06-28-2024 NoteHNO ID: [id number] Author: TITA LANDRY APRN.CNP Service: ? Author Type: Nurse Practitioner Type: Progress Notes Filed: 01/16/2024 22:44 Note Text: Heart, Vascular and Thoracic Pound DEPARTMENT OF THORACIC SURGERY OUTPATIENT VISIT DATE December 13, 2023 OUTPATIENT VISIT TYPE ESTABLISHED PT NAME: Norfolk Pepe [facility] NO: [id number] THORACIC SURGEON: Ronaldo Flood M.D. DATE OF SERVICE: 12/13/2023 PRINCIPAL DX: Pleural Effusion SURGICAL HX 11/20/2023: R VATS pleural biopsy, right wind turbine mechanic and doxycycline pleurodesis, right Pleurx catheter insertion, right 20Fr chest tube insertion Surgical Pathology 11/20/2023: FINAL DIAGNOSIS A. Right pleura, biopsy: - Chronic pleuritis with mesothelial hyperplasia (see comment). B. Right pleura, biopsy: - Acute organizing and chronic pleuritis (see comment). IA/ 11/22/2023 Diagnosis Comment A. The biopsy contains [...] reactive proliferation. Drs. Della Subramanian and Zeus Mtsri have also reviewed this case and agree [...] effusion s/p R VATS pleural biopsy, right wind turbine mechanic and doxycycline pleurodesis, right Pleurx catheter insertion, right 20Fr chest tube insertion on 11/20/[address] Flood. Patient overall doing (more content not included)...[facility]06-28-[facility] History of Present illness Narrative* Tita Landry APRN.SEO SPECIALIST - 12/13/2023 1:27 PM EDT Heart, Vascular and Thoracic Pound DEPARTMENT OF THORACIC SURGERY OUTPATIENT VISIT DATE December 13, 2023 OUTPATIENT VISIT TYPE ESTABLISHED PT NAME: Sav Raymundo CLINIC NO: [id number] THORACIC SURGEON: Ronaldo Flood M.D. 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 Flood. Patient overall doing well from a clinical standpoint. CXR from today is still pending; to my eye, shows stable right pleural effusion. Patient continues to drain large amounts from pleurx catheter every other day. PLAN: -Follow-up in 1 week with CXR and SEO SPECIALIST visit; sooner if experiencing new/worsening clinical symptoms -Continue to drain pleurx every other day Part of this note was copied from my previous note, all content has been individually and thoroughly reviewed, updated as necessary, patient assessed with updated information, and changes appropriately documented/adjusted. Tita Landry APRN.SEO SPECIALIST documented in this encounterTrinity Health [facility]06-18-2024 Telephone encounter Note * Telephone Encounter - Lilia Ornelas - 12/03/2023 4:42 PM EDT Confirmed date and time of apts w/ patient and his via phone. Both have access to MyChart. PF 12/13/2023 at [facility] at 1:30pm Est 1 week follow up w/ Tita Landry at 2pm Per staff message from Tita Gris: please schedule patient for follow-up with me with CXR in 1 week [facility]06-18-2024 Miscellaneous Notes* Telephone Encounter - Lilia Ornelas - 12/03/2023 4:42 PM EDT Confirmed date and time of apts w/ patient and his via phone. Both have access to MyChart. PF 12/13/2023 at [facility] at 1:30pm Est 1 week follow up w/ Tita Landry at 2pm Per staff message from Tita Gris: please schedule patient for follow-up with me with CXR in 1 week documented in this encounterTrinity Health System [facility]06-18-2024 Nurse Note* Jessica Enriquez RN - 12/03/2023 1:47 PM EDT Patient stated he was having SOB. Pleur x drained yesterday for 1075ml. Attempted to drain pleur x today no drainage present. Applied dressing. Jessica Enriquez RN [facility]06-18-2024 Nurse Note* Jessica Enriquez RN - 12/03/2023 1:47 PM EDT Patient stated he was having SOB. Pleur x drained yesterday for 1075ml. Attempted to drain pleur x today no drainage present. Applied dressing. Jessica Enriquez RN documented in this encounterTrinity Health System [facility]06-18-2024 NoteHNO ID: [id number] Author: TITA LANDRY APRN.SEO SPECIALIST Service: ? Author Type: Nurse Practitioner Type: Progress Notes Filed: 12/30/2023 22:10 Note Text: Heart, Vascular and Thoracic Pound DEPARTMENT OF THORACIC SURGERY OUTPATIENT VISIT DATE December 03, 2023 OUTPATIENT VISIT TYPE ESTABLISHED PT NAME: Adams E [facility] NO: [id number] THORACIC SURGEON: Ronaldo Flood M.D. 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 Right pleura, biopsy: - Chronic pleuritis with mesothelial hyperplasia (see comment). B. Right pleura, biopsy: - Acute organizing and chronic pleuritis (see comment). IA/ 11/22/2023 Diagnosis Comment A. 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 Did not drain in clinic today. Reviewed final pathology results which showshronic pleuritis with mesothelial hyperplasia, with no definitive evidence of malignancy. Patient's voices frustration that the cause of the patient's recurrent effusion is still (more content not included)...[facility]06-18-[facility] History of Present illness Narrative* Tita Landry APRN.SEO SPECIALIST - 12/03/2023 1:02 PM EDT Heart, Vascular and Thoracic Pound DEPARTMENT OF THORACIC SURGERY OUTPATIENT VISIT DATE December 03, 2023 OUTPATIENT VISIT TYPE ESTABLISHED PT NAME: Sav Raymundo CLINIC NO: [id number] THORACIC SURGEON: Ronaldo Flood M.D. 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 Right pleura, biopsy: - Chronic pleuritis with mesothelial hyperplasia (see comment). B. Right pleura, biopsy: - Acute organizing and chronic pleuritis (see comment). IA11/22/2023 Diagnosis Comment A. The biopsy contains pleural [...] 11/20/2023, patient underwent R VATS pleuralbiopsy, right wind turbine mechanic and doxycycline pleurodesis, right Pleurx catheter [...] States pleurx was last drained yesterday by [facility] with 1,025 cc out. 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 Flood. Patient overall doing well from a clinical standpoint. CXR from today is still pending; to my eye, shows stable right pleural effusion. Patient continues to drain large amounts from pleurx catheter every other day. PLAN: -Follow-up in 1 week with CXR and SEO SPECIALIST visit; sooner if experiencing new/worsening clinical symptoms -Continue to drain pleurx every other day Part of this note was copied from my previous note, all content has been individually and thoroughly reviewed, updated as necessary, patient assessed with updated information, and changes appropriately documented/adjusted. Tita Landry APRN.SEO SPECIALIST documented in this encounterTrinity Health System [facility]06-18-2024 History of Present illness Narrative* [...] PATIENT PRESENTS WITH AN IMPLANTABLE OR ATTACHED IRONER MACHINE: No RADIOLOGY DEPARTMENT: General X-ray: Exam(s) Completed: Chest X-Ray PERIPHERAL IV DATA: Not applicable SIGNED BY: IMAN Hernández) December 03, 2023 12:26 PM documented in this encounterTrinity Health System [facility]06-18-2024 NoteHNO ID: [id number] Author: ISAMAR GUEVARA RT(R) Service: Radiology Author [...] PATIENT PRESENTS WITH AN IMPLANTABLE OR ATTACHED IRONER MACHINE: No RADIOLOGY DEPARTMENT: General X-ray: Exam(s) Completed: Chest X-Ray PERIPHERAL IV DATA: Not applicable SIGNED BY: RT Betty(R) December 03, 2023 12:26 PMBeth Israel [facility]acon[facility]06-14-2024 History of Present illness Narrative* Tita Landry APRN.SEO SPECIALIST - 11/29/2023 3:00 PM EDT Heart, Vascular and Thoracic Pound DEPARTMENT OF THORACIC SURGERY OUTPATIENT VISIT DATE November 29, 2023 OUTPATIENT VISIT TYPE ESTABLISHED PT NAME: Sav Raymundo CLINIC NO: [id number] THORACIC SURGEON: Ronaldo Flood M.D. 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, right Pleurx catheter [...] 11/20/2023, patient underwent R VATS pleuralbiopsy, right wind turbine mechanic and doxycycline pleurodesis, right Pleurx catheter [...] (dark awilda with foam) 11/26: 450 cc (neuro psych sales specialist than last time with foam) I drained [...] effusion s/p R VATS pleural biopsy, right wind turbine mechanic and doxycycline pleurodesis, right Pleurx catheter [...] with KDUR supplementation for edema Tita Landry APRN.SEO SPECIALIST documented in this encounterTrinity Health System [facility]06-14-2024 NoteHNO ID: [id number] Author: TITA LANDRY APRN.SEO SPECIALIST Service: ? Author Type: Nurse Practitioner Type: Progress Notes Filed: 12/30/2023 21:20 Note Text: Heart, Vascular and Thoracic Pound DEPARTMENT OF THORACIC SURGERY OUTPATIENT VISIT DATE November 29, 2023 OUTPATIENT VISIT TYPE ESTABLISHED PT NAME: Sav Cantu [facility] NO: [id number] THORACIC SURGEON: Ronaldo Flood M.D. 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, right Pleurx catheter [...] with KDUR supplementation for edema Tita Landry APRN.[facility]05-28-2024 History of Present illness Narrative* Ronaldo Flood [...] . Huy Robles RN [facility]* Huy Robles RN - 11/12/2023 2:27 PM EDT PATIENT EDUCATION The following was evaluated: Motivation To Learn: Interested Family/Significant Other Support: High - Very involved in pt care Cognitive Ability: Alert and oriented Patient Learns Best By: Multiple Methods The Following Influencing Factors Were Barriers To This Education Session: No barriers Radiology Receptionist Present: Not Applicable The Following Physical Limitations [...] Robles RN. In Department of THORACIC CLINIC. [facility]05-28-[facility] Nurse Note* Huy Robles RN - 11/12/2023 2:27 PM EDT PATIENT EDUCATION The following was evaluated: Motivation To Learn: Interested Family/Significant Other Support: High - Very involved in pt care Cognitive Ability: Alert and oriented Patient Learns Best By: Multiple Methods The Following Influencing Factors Were Barriers To This Education Session: No barriers Radiology Receptionist Present: Not Applicable The Following Physical Limitations [...] Department of THORACIC CLINIC. documented in this encounterTr[facility] History of Present illness Narrative* Mariam Sy, [employer] - 11/12/2023 10:00 AM EDT RADIOLOGY SERVICE [...] PATIENT PRESENTS WITH AN IMPLANTABLE OR ATTACHED IRONER MACHINE: No CREATININE: Creatinine Date Value Ref Range [...] Discontinued PROCEDURE TYPE: NM Stress: 11.8 mCi [id number] was administered IV for Rest Imaging at 10:18AM by [facility]. 41.8 mCi [id number] was administered IV for Stress Imaging at 1118 by Mariam Patterson ADMINISTRATION TIME: PATIENT DISCHARGED TO: Ambulatory patient, left [place] department area. A Diagnostic radioactive procedure has taken place, with no further precautions necessary other than routine body substance precautions. More information regarding radiation safety can be found usingthis link: [email or web address]%[email or web address]%20Medicine%[email or web address] SIGNATURE: RT Lebron(R) PATIENT NAME: Sav [...] ALLERGIES: Reviewed and unchanged MEDICATIONS REVIEWED BY: Customer Service Correspondence Clerk PROCEDURE TYPE: NM STRESS: 0.4 mg of Lexiscan was administered IV at 1018 by Vibha Dempsey RN . Reversal agent used: None. Expiration date: 06/2025 Lot#: [id number] IV SITE: Ambulatory: A Saline lock was inserted per protocol POST EXAM PIV STATUS: Discontinued PATIENT DISCHARGED TO: Ambulatory patient, left [place] department area. A Diagnostic radioactive procedure has taken place, with no further precautions necessary other than routine body substance precautions. More information regarding radiation safety can be found usingthis link: [email or web address]%[email or web address] SIGNATURE: Vibha Dempsey RN PATIENT NAME: Sav Raymundo DATE: November 12, 2023 TIME: 11:14 AM PAGER/CONTACT #: documented in this encounterTr[facility] History of Present illness Narrative* [...] PATIENT PRESENTS WITH AN IMPLANTABLE OR ATTACHED IRONER MACHINE: No RADIOLOGY DEPARTMENT: General X-ray: Exam(s) Completed: Chest X-Ray PERIPHERAL IV DATA: Not applicable SIGNED BY: RT Hudson(R) November 12, 2023 8:12 AM documented in this encounterTr[facility] Telephone encounter Note * Telephone [...] 6/5 pt voiced understanding Patricia Bermudez RN [facility]05-23-2024 Miscellaneous Notes* Telephone Encounter - [...] understanding Patricia Bermudez RN documented in this encounterTr[facility] History of Present illness Narrative* [...] this time. Patricia Bermudez MSN, RN Nurse Pattern Mechanic Thoracic Surgery [facility] * Patricia Bermudez RN - 10/25/2023 11:43 AM EDT October 25, 2023 11:43 AM left message on patient mobile phone to discuss surgical planning, await call back. Tentative plans for: OR 11/20/2023 pending patient acceptance Patricia Bermudez RN documented in this encounterTr[facility] History of Present illness Narrative* Ronaldo Flood MD, PhD - 10/25/2023 10:26 AM EDT [facility] STAFF PHYSICIAN NOTE OF PERSONAL INVOLVEMENT [...] THORACIC SURGERY OUTPATIENT CONSULT NOTE Sav Raymundo [id number] Requesting Provider: Dr. Sintia Clemente Thoracic Physician: [...] by: Mark Malone MD documented in this encounterTr[facility] Telephone encounter Note * Telephone Encounter - Jahaira Wood - 10/21/2023 11:41 AM EDT Received ED visit notes 10/18/23 from [facility] Records scanned in [facility] CTA Chest and Chest XR imaging requested from [facility] [place], front desk admin [facility]05-06-2024 Miscellaneous Notes* Telephone Encounter - Jahaira Wood - 10/21/2023 11:41 AM EDT Received ED visit notes 10/18/23 from [facility] Records scanned in [facility] Chest and Chest XR imaging requested from [facility] [place], front desk admin * Telephone Encounter - Patricia Bermudez RN - 10/21/2023 10:08 AM EDT Images from the original note were not included. Thoracic Surgery Consultation - review of records for appointment scheduling Received medical records from the office of Sintia Clmeente [address] [place] [address] Patient is being referred to Ronaldo Flood MD, PhD by Sintia Clemente for Pleural Effusion Outside hospital records scanned Pathology: Procedures: right thoracentesis 10/01/23 520ml thoracentesis 09/04/[address] chest done at [facility] for Shortness of breath - pt [...] M.D., Ph. D. by Sintia Clemente [address] [facility] [id number] Patient diagnosis/Reason for consult: Pleural Effusion Recurrent Referral triage process explained: Yes Patient will receive a call from Thoracic NPM after triage review with surgeon to discuss any additional testing and/or consults that will be scheduled. Pt will then receive a call from our scheduling office for scheduling. Please call pt at [phone]. Patient was informed consultation could be at [facility] or [facility]: No Patient Registration: Registration complete/updated: yes Insurance card(s) scanned in [employer] with in the past year: Yes: Date: 10/16/23 Pt's [employer] is inactive. Ok to communicate to pt via [employer] not asked Medical Records: Records in [facility] (internal CC records): No Imaging in [facility] (internal CC records): No Care Everywhere - queried yes, downloaded Yes Linked Outside Organizations (list): [facility] Records Requested: no Date: N/A Outside Hospital(s) requested records from: Dr. Clemente Received: yes Uploaded: Yes. Waiting on additional records: No. Missing (list): N/A OS Pathology Slides Requested: no Date: N/A Outside Hospital(s) slides requested from: n/a OS Radiology Imaging Requested: yes Date: October 16, 2023 Outside Hospital(s) requested imaging from: [facility]. Imaging will be received via Electronic Transfer Received: Yes Imaging uploaded: Yes Waiting on additional: No Missing (list): n/a Additional providers added to Care Teams: Yes Additional Notes/Comments: Pt's spouse states pt is waiting to be scheduled for another CT Chest locally. Enct routed to: Margaret Vasquez NPM for Triage Jahaira Wood, front desk admin documented in this encounterTr[facility]05-[facility] Telephone encounter Note * Telephone Encounter - Patricia Bermudez, RN - 10/21/2023 10:08 AM EDT Images from the original note were not included. Thoracic Surgery Consultation - review of records for appointment scheduling Received medical records from the office of Sintia Clemente [address] [place] [address] Patient is being referred to Ronaldo Flood MD, PhD by Sintia Clemente for Pleural Effusion Outside hospital records scanned Pathology: Procedures: right thoracentesis 10/01/23 520ml thoracentesis 09/04/23 right [address] chest done at [facility] for Shortness of breath - pt [...] pt aware and agreeable Patricia Bermudez RN [facility]05-01-2024 Telephone encounter Note* Telephone Encounter - Jahaira Wood - 10/16/2023 9:16 AM EDT LOCAL PATIENT Received Fax from Dr. Sintia Adams Pepe Raymundo is being referred to Ronaldo Flood M.D., Ph. D. by Sintia Clemente [address] [place], [place] [id number] Patient diagnosis/Reason for consult: Pleural Effusion Recurrent Referral triage process explained: Yes Patient will receive a call from Thoracic NPM after triage review with surgeon to discuss any additional testing and/or consults that will be scheduled. Pt will then receive a call from our scheduling office for scheduling. Please call pt at [phone]. Patient was informed consultation could be at [facility] or [facility]: No Patient Registration: Registration complete/updated: yes Insurance card(s) scanned in [facility] with in the past year: Yes: Date: 10/16/23 Pt's [employer] is inactive. Ok to communicate to pt via [employer] not asked Medical Records: Records in [facility] (internal CC records): No Imaging in [facility] (internal CC records): No Care Everywhere - queried yes, downloaded Yes Linked Outside Organizations (list): [facility] Records Requested: no Date: N/A Outside Hospital(s) requested records from: Dr. Clemente Received: yes Uploaded: Yes. Waiting on additional records: No. Missing (list): N/A OS Pathology Slides Requested: no Date: N/A Outside Hospital(s) slides requested from: n/a [facility] Radiology Imaging Requested: yes Date: October 16, 2023 Outside Hospital(s) requested imaging from: [facility]. Imaging will be received via Electronic Transfer Received: Yes Imaging uploaded: Yes Waiting on additional: No Missing (list): n/a Additional providers added to Care Teams: Yes Additional Notes/Comments: Pt's spouse states pt is waiting to be scheduled for another CT Chest locally. Enct routed to: Margaret Vasquez NPM for Triage Jahaira Wood, front desk admin [facility]04-30-2024 Telephone encounter Note* Telephone Encounter - Sol Desouza - 10/15/2023 4:06 PM EDTSummary: CARDIO THORACIC SURG Patient: Sav Raymundo Date of : 1950 Patient phone number: [phone] Referring Provider for the encounter: Sintia Clemente Requesting Provider: Dr Ronaldo Flood Reason for requesting visit (RFV/signs and symptoms/diagnosis): pleural effusion recurment . Person calling: Via RP FAX Return call to: self Medical Records/Insurance Card scanned into [facility]: Comments: [facility]04-30-2024 Miscellaneous Notes* Telephone Encounter - Sol Desouza - 10/15/2023 4:06 PM EDTSummary: CARDIO THORACIC SURG Patient: Sav Raymundo Date of : 1950 Patient phone number: [phone] Referring Provider for the encounter: Sintia Clemente Requesting Provider: Dr Ronaldo Flood Reason for requesting visit (RFV/signs and symptoms/diagnosis): pleural effusion recurment . Person calling: Via RP FAX Return call to: self Medical Records/Insurance Card scanned into [employer]: Comments: documented in this encounterTr[facility] Evaluation note* Encounter Date Diagnosis Assessment Notes Treatment Notes Treatment Clinical Notes Jul, Subacute cough (ICD-10 - R05.2) Continue treatment of any PND and GERD. Continue Mucinex DM. Trial of Prednisone and Albuterol. Jul,rimary hypertension (ICD-10 - I10)This patient is instructed to consume a healthy, low-fat, low-salt diet. They are also encouraged to continue exercise to achieve/maintain a normal BMI. [facility] Other 01-24-2024 Evaluation note* Encounter Date Diagnosis Assessment Notes Treatment Notes Treatment Clinical Notes Jun, Subacute cough (ICD-10 - R05.2) [facility] Other 01-21-2024 Evaluation note* Encounter Date Diagnosis Assessment Notes Treatment Notes Treatment Clinical Notes Jun, Subacute cough (ICD-10 - R05.2) [facility] Other 01-09-2024 Evaluation note* Encounter Date Diagnosis Assessment Notes Treatment Notes Treatment Clinical Notes Jun, Primary hypertension (ICD-10 - I 10) [facility] Other 11-21-2023 Evaluation note* Encounter Date Diagnosis Assessment Notes Treatment Notes Treatment Clinical Notes Apr, Acute bronchitis due to other sp ecified organisms (ICD-10 - J20.8) [facility] Other 11-08-2023 Evaluation note* Encounter Date Diagnosis Assessment Notes Treatment Notes Treatment Clinical Notes Apr, Primary hypertension (ICD-10 - I 10) [facility] Other 11-06-2023 Evaluation note* Encounter Date Diagnosis [...] (prostate specific antigen) (ICD-10 - Z12.5)Yealry PSA [facility] Other 11-01-2023 Evaluation note* Encounter Date Diagnosis Assessment Notes Treatment Notes Treatment Clinical Notes Apr, Screening PSA (prostate specific antigen) (ICD-10 - Z12.5) Apr,Hyperlipidemia type II (ICD-10 - E78.01) Apr,astro-esophageal reflux disease with esophagitis, without bleeding (ICD-10 - K21.00) Apr,Fatigue, unspecified type (ICD-10 - R53.83) Apr,High risk medication use (ICD-10 - Z79.899) [facility] Other 08-28-2023 History of Present illness Narrative* Margie Edouard, DO - 02/11/2023 2:00 PM EDT Telehealth Visit Via Phone Call Patient: Sav Raymundo Date of : 1950 (72 y.o. male) Patient Patient Location: [address] [place] [address] [place] [address] Provider Location: [facility] I discussed risks, benefits and alternatives [...] there are inherent diagnostic limitations compared to fiel-hd-ohmg evaluations. We elected toproceed with the telephone [...] expedite correspondence this note was generated by [employer] voice recognition software. Somegrammatical or spelling errors may occur using the system. documented in this [id number] History of Present illness Narrative* Nena Huff, - 01/16/2023 10:35 AM EDT [facility] [address] [place] [address] Patient Name: Sav Raymundo Patient Age: 72 [...] KNEE ARTHROPLASTY; Surgeon: Karthik Calloway MD; Location: [facility] OR; Service: ARTHROPLASTY KNEE TOTAL Right 06/25/2016 Procedure: RIGHT TOTAL KNEE ARTHROPLASTY ; Surgeon: Karthik Calloway MD; Location: [facility] OR; Service: BASAL CELL CARCINOMA EXCISION [...] mouth every morning . vit A-vit C-vit D-kvan-rpmkvh 7,160-113-100 fvqj-sr-bnwm Tab Take 1 tablet by mouth every [...] Imaging: X-rays of the left knee from [facility] taken today are reviewed. My personal [...] expedite correspondence this note was generated by [employer] voice recognition software. Somegrammatical or spelling errors may occur using the system. documented in this [id number] Evaluation note* Encounter Date Diagnosis Assessment Notes Treatment Notes Treatment Clinical Notes Dec, Laceration of scalp, initial enc ounter (ICD-10 - S01.01XA) Cleanse scalp w/ soap and water [facility] Other 06-05-2023 History of Present illness Narrative* [...] the left great toe does not apparently matrix inspector the ground. IMAGING: Please see dictated report. ASSESSMENT: Left hallux rigidus Left metatarsalgia PLAN: I performed a left first MTP joint injection at today's visit. Please see separate procedure note. I recommended that we proceed with custom orthotics with a Eaton's extension, built-in metatarsal pad. Order was placed to [facility] orthopedics. We discussed left first MTP joint [...] expedite correspondence, this note was generated by [employer] voice recognition software. Some grammatical or spelling errors may occur using this system. documented in this [id number] History of Present illness Narrative* Grecia Faith [...] expedite correspondence, this note was generated by [employer] voice recognition software. Some grammatical or spelling errors may occur using this system. documented in this [id number] History of Present illness Narrative* Margie Edouard, [...] the left great toe does not apparently matrix inspector the ground. IMAGING: Please see dictated report. [...] expedite correspondence, this note was generated by [employer] voice recognition software. Some grammatical or spelling errors may occur using this system. documented in this encounterWest [facility]HealthEvaluation note* Diagnosis Status post total knee replacement, bilateral- Primary [facility]* Diagnosis Hallux rigidus of left foot- Primary Eaton's metatarsalgia, left [facility]* Diagnosis Hallux rigidus of left foot- Primary Metatarsalgia, left foot [facility]* Diagnosis Hallux rigidus of left foot- Primary [facility] Diagnosis Status post total knee replacement, bilateral- Primary documented in this encounter [facility] note* Diagnosis Hallux rigidus of left foot- Primary documented in this encounter [facility] noteNo Benefit [employer] Other evaluation note* Diagnosis Status post total knee replacement, bilateral- Primary documented in this encounter [facility] note* Diagnosis Onset Date Resolution Status Nausea & vomiting acutePrimary hypertensionacuteSubacute coughacuteDyspnea on effortnoneactive [place] [facility] Work Phone: evaluation note* Diagnosis Pleural effusion- Primary Unspecified pleural effusion documented in this encounter [facility] note* Diagnosis Obesity, Class I, BMI 30-34.9- Primary Obesity, unspecified Pleural effusion Unspecified pleural effusion documented in this encounter [facility] note* Diagnosis Pleural effusion- Primary Unspecified pleural effusion Encounter for other preprocedural examination Pleural effusion Unspecified pleural effusion Encounter for other preprocedural examination documented in this encounter [facility] note* Diagnosis Pleural effusion- Primary Unspecified pleural effusion Pleural effusion Unspecified pleural effusion Encounter for other preprocedural examination documented in this encounter [facility] note* Diagnosis Pleural effusion Unspecified pleural effusion Encounter for other preprocedural examination Pleural effusion Unspecified pleural effusion Encounter for other preprocedural examination documented in this encounter [facility] note* Diagnosis Surgery follow-up- Primary Follow-up examination, following unspecified surgery documented in this encounter [facility] note* Diagnosis Follow-up exam- Primary Unspecified follow-up examination documented in this encounter [facility] note* Diagnosis Surgery follow-up Follow-up examination, following unspecified surgery documented in this encounter [facility] note* Diagnosis Follow-up exam Unspecified follow-up examination documented in this encounter [facility] note* Diagnosis Pleural effusion Unspecified pleural effusion documented in this encounter [facility] note* Diagnosis Pleural effusion Unspecified pleural effusion documented in this encounter [facility] note* Diagnosis Follow-up examination after lung surgery- Primary Follow-up examination, following other surgery Pleural effusion Unspecified pleural effusion documented in this encounter [facility] note* Diagnosis Follow-up examination after lung surgery- Primary Follow-up examination, following other surgery Pleural effusion Unspecified pleural effusion Pleural effusion Unspecified pleural effusion [facility] Diagnosis Pleural effusion- Primary Unspecified pleural effusion documented in this encounter [facility] note* Diagnosis Chronic cough- Primary Cough Pleural effusion Unspecified pleural effusion documented in this encounter [facility] note* Diagnosis Recurrent pleural effusion- Primary History of pericarditis Personal history of other diseases of circulatory system Chronic cough Cough documented in this encounter [facility] note* Diagnosis Recurrent pleural effusion on right Unspecified pleural effusion documented in this encounter [facility] note* Diagnosis Recurrent pleural effusion on right- Primary Unspecified pleural effusion Chronic cough Cough Elevated C-reactive protein (CRP) Elevated sedimentation rate documented in this encounter [facility] note* Diagnosis Pleural effusion- Primary Unspecified pleural effusion Pleural effusion Unspecified pleural effusion [facility]* Diagnosis Follow-up examination after lung surgery- Primary Follow-up examination, following other surgery Pleural effusion Unspecified pleural effusion Bilateral lower extremity edema Edema Anasarca Edema Nausea vomiting and diarrhea Diarrhea documented in this encounter [facility] note* Diagnosis Pleural effusion- Primary Unspecified pleural effusion Elevated sed rate Elevated sedimentation rate Elevated C-reactive protein (CRP) documented in this encounter [facility] note* Diagnosis Recurrent pleural effusion on right- Primary Unspecified pleural effusion Primary hypertension Unspecified essential hypertension Pleural effusion Unspecified pleural effusion Chronic cough Cough Anemia, unspecified type Hypomagnesemia Disorders of magnesium metabolism documented in this encounter [facility] note* Diagnosis Recurrent pleural effusion on right- Primary Unspecified pleural effusion History of pericarditis Personal history of other diseases of circulatory system [facility] encounter [facility]* Diagnosis Pleural effusion Unspecified pleural effusion [facility]* Diagnosis Chronic cough Cough Pleural effusion Unspecified pleural effusion [facility]* Diagnosis Pleural effusion- Primary Unspecified pleural effusion documented in this encounter [facility] note* Diagnosis Chronic cough- Primary Cough Pleural effusion Unspecified pleural effusion Interstitial pulmonary disease (HCC) Postinflammatory pulmonary fibrosis documented in this encounter [facility] note* Diagnosis Pleural effusion- Primary Unspecified pleural effusion Interstitial pulmonary disease (HCC) Postinflammatory pulmonary fibrosis [facility]* Diagnosis Chronic cough- Primary Cough Pleural [...] Postinflammatory pulmonary fibrosis documented in this encounter [facility] note* Diagnosis Chronic bronchitis, unspecified chronic bronchitis type (HCC) documented in this encounter [facility] note* Diagnosis Interstitial pulmonary disease (HCC) Postinflammatory pulmonary fibrosis documented in this encounter [facility] Diagnosis Pericarditis, unspecified chronicity, unspecified type documented [facility] this [facility]* Diagnosis Pleural effusion- Primary Unspecified pleural effusion Elevated sed rate Elevated sedimentation rate Elevated C-reactive protein (CRP) Diarrhea, unspecified type documented in this encounter [facility] note* Diagnosis Diarrhea, unspecified type Abdominal pain, unspecified abdominal location documented in this encounter [facility] note* Diagnosis Abdominal pain, unspecified abdominal location- Primary Diarrhea, unspecified type Diarrhea, unspecified type Abdominal pain, unspecified abdominal location documented in this encounter [facility] note* Diagnosis Nausea and vomiting, unspecified vomiting type documented in this encounter [facility] note* Diagnosis Recurrent pleural effusion on right- Primary Unspecified pleural effusion Anasarca Edema Chronic cough Cough Primary hypertension Unspecified essential hypertension [facility]* Diagnosis Pleural effusion Unspecified pleural effusion documented [facility]* Diagnosis Pleural effusion- Primary Unspecified pleural effusion Chronic cough Cough Lung nodule Solitary pulmonary nodule Lymphocytic colitis Other and unspecified noninfectious gastroenteritis and colitis Pleural effusion Unspecified pleural effusion documented in this encounter [facility] note* Diagnosis Pleural effusion- Primary Unspecified pleural effusion Elevated sed rate Elevated sedimentation rate Elevated C-reactive protein (CRP) [facility]* Diagnosis Lymphocytic colitis- Primary Other and unspecified noninfectious gastroenteritis and colitis documented [facility]* Diagnosis Recurrent pleural effusion on right- Primary Unspecified pleural effusion Primary hypertension Unspecified essential hypertension Lymphocytic colitis Other and unspecified noninfectious gastroenteritis and colitis Elevated C-reactive protein (CRP) Exocrine pancreatic insufficiency Other specified disease of pancreas Hypokalemia Hypopotassemia Anasarca Edema documented in this encounter [facility] note* Diagnosis Pleural effusion- Primary Unspecified pleural effusion documented in this encounter [facility] note* Diagnosis Pleural effusion- Primary Unspecified pleural effusion Pleuritis Pleurisy without mention of effusion or current tuberculosis Lymphocytic colitis Other and unspecified noninfectious gastroenteritis and colitis Pericardial effusion (noninflammatory) Interstitial pulmonary disease (HCC) Postinflammatory pulmonary fibrosis documented in this encounter [facility] note* Diagnosis Pleural effusion [J90]- Primary Unspecified pleural effusion documented in this encounter [facility] note* Diagnosis Pleural effusion Unspecified pleural effusion documented in this encounter [facility] note* Diagnosis Pleural effusion- Primary Unspecified pleural effusion Muscle cramps Cramp of limb Anasarca Edema Hypomagnesemia Disorders of magnesium metabolism Lymphocytic colitis Other and unspecified noninfectious gastroenteritis and colitis documented in this encounter [facility] note* Diagnosis Fatigue, unspecified type- Primary documented in this encounter [facility] note* Diagnosis Pleural effusion- Primary Unspecified pleural effusion documented in this encounter [facility] note* Diagnosis Pleural effusion- Primary Unspecified pleural effusion Pleuritis Pleurisy without mention of effusion or current tuberculosis Pericardial effusion (noninflammatory) Chronic cough Cough documented in this encounter [facility] note* Diagnosis Pleural effusion- Primary Unspecified pleural effusion documented in this encounter [facility] note* Diagnosis Pleural effusion Unspecified pleural effusion documented in this encounter [facility] note* Diagnosis Early dry stage nonexudative age-related macular degeneration of both eyes- Primary Dry eyes Unspecified tear film insufficiency Blepharitis of upper and lower eyelids of both eyes, unspecified type Bilateral posterior capsular opacification Unspecified after-cataract Chalazion of left upper eyelid documented in this encounter [facility] note* Diagnosis Pleural effusion- Primary Unspecified pleural effusion documented in this encounter [facility] note* Diagnosis Recurrent pleural effusion on right- Primary Unspecified pleural effusion documented in this encounter [facility] note* Diagnosis Lymphocytic colitis- Primary Other and unspecified noninfectious gastroenteritis and colitis Esophageal dysphagia Dysphagia, pharyngoesophageal phase documented [facility] this [facility]* Diagnosis Seborrheic keratosis- Primary Actinic keratosis Stasis dermatitis of both legs Lentigines documented in this encounter [facility] note* Diagnosis Recurrent pleural effusion on right- Primary Unspecified pleural effusion documented in this encounter [facility] note* Diagnosis Recurrent pleural effusion on right- Primary Unspecified pleural effusion documented in this encounter [facility] note* Diagnosis Recurrent pleural effusion on right- Primary Unspecified pleural effusion Hypokalemia Hypopotassemia Lymphocytic colitis Other and unspecified noninfectious gastroenteritis and colitis Anemia, unspecified type Chronic insomnia Insomnia, unspecified Bronchiolar disease Other diseases of trachea and bronchus documented in this encounter [facility] note* Diagnosis Esophageal dysphagia- Primary Dysphagia, pharyngoesophageal phase Bronchiolar disease Other diseases of trachea and bronchus documented in this encounter [facility] note* Diagnosis Cough, unspecified type documented in this encounter [facility] note* Diagnosis Elevated BUN- Primary Other abnormal blood chemistry Elevated serum creatinine Other nonspecific findings on examination of blood Decreased GFR Nonspecific abnormal results of kidney function study Elevated alkaline phosphatase level Other nonspecific abnormal serum enzyme levels documented in this encounter [facility] note* Diagnosis FLOYD (acute kidney injury)- Primary Acute kidney failure, unspecified Elevated BUN Other abnormal blood chemistry Elevated serum creatinine Other nonspecific findings on examination of blood Decreased GFR Nonspecific abnormal results of kidney function study Lymphocytic colitis Other and unspecified noninfectious gastroenteritis and colitis Pleural effusion, not elsewhere classified Generalized edema Edema documented in this encounter [facility] note* Diagnosis Screening for genitourinary condition Screening for other and unspecified genitourinary condition documented in this encounter [facility] note* Diagnosis Cramp and spasm documented in this encounter [facility] note* Diagnosis Serositis (HCC)- Primary Other specified disorder of intestines documented in this encounter [facility] note* Diagnosis Generalized abdominal pain- Primary Abdominal pain, generalized Other ascites documented in this encounter [facility] note* Diagnosis Elevated alkaline phosphatase level Other nonspecific abnormal serum enzyme levels documented in this encounter [facility] note* Diagnosis Pleural effusion- Primary Unspecified pleural effusion documented in this encounter [facility] note* Diagnosis Pleural effusion Unspecified pleural effusion Encounter for other preprocedural examination [facility] Diagnosis Anasarca- Primary Edema Recurrent pleural effusion on right Unspecified pleural effusion Hepatomegaly Hiatal hernia Diaphragmatic hernia without mention of obstruction or gangrene Chronic gastritis without bleeding, unspecified gastritis type Hypomagnesemia Disorders of magnesium metabolism [facility] Diagnosis Pleural effusion Unspecified pleural effusion [facility] Diagnosis Extremity cyanosis- Primary Other peripheral vascular disease [facility] Diagnosis Pleural effusion- Primary Unspecified pleural effusion [facility] Diagnosis Pleural effusion- Primary Unspecified pleural effusion Pleuritis Pleurisy without mention of effusion or current tuberculosis Pericardial effusion (noninflammatory) (HCC) Lymphocytic colitis Other and unspecified noninfectious gastroenteritis and colitis Other ascites [facility] Diagnosis Pleural effusion, not elsewhere classified [facility] Diagnosis Hepatomegaly [facility] Diagnosis Cramp and spasm [facility]* Diagnosis Mixed connective tissue disease (HCC)- Primary Other specified diffuse disease of connective tissue Urge incontinence Hypokalemia Hypopotassemia Recurrent pleural effusion on right Unspecified pleural effusion Muscle cramps Cramp of limb Hiatal hernia Diaphragmatic hernia without mention of obstruction or gangrene [facility]* Diagnosis Elevated serum creatinine- Primary Other nonspecific findings on examination of blood Elevated alkaline phosphatase level Other nonspecific abnormal serum enzyme levels [facility] Diagnosis Pleural effusion, not elsewhere classified Elevated alkaline phosphatase level Other nonspecific abnormal serum enzyme levels [facility]* Diagnosis Cramp and spasm Elevated alkaline phosphatase level Other nonspecific abnormal serum enzyme levels [facility] Diagnosis Pleural effusion- Primary Unspecified pleural effusion Pleuritis Pleurisy without mention of effusion or current tuberculosis Pericardial effusion (noninflammatory) (HCC) History of pericarditis Personal history of other diseases of circulatory system Lymphocytic colitis Other and unspecified noninfectious gastroenteritis and colitis Elevated alkaline phosphatase level Other nonspecific abnormal serum enzyme levels [facility] Diagnosis Hypomagnesemia- Primary Disorders of magnesium metabolism Dyslipidemia Other and unspecified hyperlipidemia Anemia, unspecified type [facility]* Diagnosis Other ascites- Primary [facility] Diagnosis Other ascites [facility] Diagnosis FLOYD (acute kidney injury)- Primary Acute kidney failure, unspecified Screening for genitourinary condition Screening for other and unspecified genitourinary condition Elevated serum creatinine Other nonspecific findings on examination of blood Decreased GFR Nonspecific abnormal results of kidney function study Generalized edema Edema Pleural effusion, not elsewhere classified [facility] this [facility] Diagnosis FLOYD (acute kidney injury)- Primary [...] unspecified genitourinary condition [facility] Diagnosis 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, stage 2 (CMS-HCC)- Primary Cellulitis of left foot Pain in toe of left foot Pain in soft tissues of limb Difficulty walking Difficulty in walking documented in this encounter [facility]* Diagnosis 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, stage 2 (CMS-HCC)- Primary Cellulitis of left foot Pain in toe of left foot Pain in soft tissues of limb Difficulty walking Difficulty in walking documented in this encounter [facility]* Diagnosis 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, stage 2 (CMS-HCC)- Primary Cellulitis of left foot Pain in toe of left foot Pain in soft tissues of limb Difficulty walking Difficulty in walking documented in this encounter [facility]* Diagnosis Dermatophytosis of nail- Primary Dystrophic nail Other specified disease of nail Pain around toenail, right foot Pain around toenail, left foot documented in this encounter [facility]* Diagnosis 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, stage 2 (CMS-HCC)- Primary Cellulitis of left foot Pain in toe of left foot Pain in soft tissues of limb Difficulty walking Difficulty in walking [facility] N[facility] - Reported* Type Description Date Medical History 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 Medical HistoryBenign prostatic hyperplasia with lower urinary tract symptoms Medical HistoryHyperlipidemia type IIMedical HistoryGastro-esophageal reflux disease with esophagitis, without bleedingSurgical Historyboth knee replaced Surgical Historyhand surgeryHospitalization HistorySEE ABOVE [facility] Other Reason for referral (narrative)* Outpatient Procedure (Routine) - AuthorizedSpecialtyDiagnoses / ProceduresReferred By Contact Ref[facility] Diagnoses Pleural effusion Encounter for other preprocedural examination Procedures SIX MINUTE WALK CARDIOPULMONARY EXERCISE STRESS Ronaldo Flood MD, PhD [address] [place] [address] Res[facility] [place] [address] Referral IDStatusSairaasonStart DateExpiration DateVisits RequestedVisits [id number] Auto-Generated Referral * Outpatient Procedure (Routine) - AuthorizedSpecialtyDiagnoses / Procedures Referred By ContactReferred To [facility] Diagnoses Pleural effusion Encounter for other preprocedural examination Procedures ECG COMPLETE ECG ROUTINE ECG W/LEAST 12 LDS W/I&R Ronaldo Flood MD, PhD [address] [place] [address] [facility] [address] [place] [address] Referral IDStatusSairaasonStenglewood DateExpiration DateVisits RequestedVisits [id number] Auto-Generated Referral * Diagnostic Procedure Only (Routine) - AuthorizedSpecialtyDiagnoses / ProceduresReferred By ContactReferred To ContactMOLECULAR & FUNCTIONAL IMAGING Diagnoses Pleural effusion Encounter for other preprocedural examination Procedures NM CARDIAC PERF STRESS/EXERCISE MYOCARDIAL SPECT MULTIPLE STUDIES Ronaldo Flood MD, PhD [address] [address] Molecular & Functional Imaging [address] [place] [address] Referral IDStatusReasonStart DateExpiration DateVisits RequestedVisits [id number] Auto-Generated Referral * Outpatient Procedure (Routine) - AuthorizedSpecialtyDiagnoses / Procedures Referred By ContactReferred To [facility] Diagnoses Pleural effusion Encounter for other preprocedural examination Procedures LUNG DIFFUSION CAPACITY (DLCO) DIFFUSING CAPACITY Ronaldo Flood MD, PhD [address] [place] [address] [place] [address] Referral IDStatusReasonStart DateExpiration DateVisits RequestedVisits [id number] Auto-Generated Referral * Outpatient Procedure (Routine) - AuthorizedSpecialtyDiagnoses / Procedures Referred By ContactReferred To [facility] Diagnoses Pleural effusion Encounter for other preprocedural examination Procedures SPIROMETRY WITH DILATOR IF OBSTRUCTED BRNCDILAT RSPSE SPMTRY PRE&POST-BRNCDILAT ADMRonaldo Catalan MD, PhD [address] [address] Referral IDStatusReasonStart DateExpiration DateVisits RequestedVisits [id number] Auto-Generated Referral [facility] for referral (narrative)* Outpatient Procedure (Routine) - New RequestSpecialtyDiagnoses / ProceduresReferred By ContactReferred To [facility] Diagnoses Chronic cough Pleural effusion Procedures SPIROMETRY WITH DILATOR IF OBSTRUCTED BRNCDILAT RSPSE SPMTRY PRE&POST-BRNCDILAT ADMN Katerina Bravo APRN.CNP [id number] [place] [address] Referral IDStatusReasonStart DateExpiration DateVisits RequestedVisits [id number] Request Auto-Generated Referral / * Outpatient Procedure (Routine) - New RequestSpecialtyDiagnoses / Procedures Referred By ContactReferred To [facility] Diagnoses Chronic cough Pleural effusion Procedures NITRIC OXIDE, EXHALED NITRIC OXIDE GAS DETERMINATION Katerina Bravo APRN.CNP [id number] [place] [address] Referral IDStatusReasonStart DateExpiration DateVisits RequestedVisits [id number] Request Auto-Generated Referral / [facility] for referral (narrative)* Outpatient Procedure (Routine) - ClosedSpecialtyDiagnoses / ProceduresReferred By ContactReferred To [facility] Diagnoses Pleural effusion Interstitial pulmonary disease (HCC) Procedures LUNG VOLUMES Louise Cesar MD [address] [place] [address] Respiratory [place] [id number] Referral IDStatusReasonStart DateExpiration DateVisits RequestedVisits [id number] Auto-Generated Referral 10/1/127728 * Outpatient Procedure (Routine) - ClosedSpecialtyDiagnoses / ProceduresReferred By ContactReferred To [facility] Diagnoses Chronic cough Pleural effusion Interstitial pulmonary disease (HCC) Procedures LUNG DIFFUSION CAPACITY (DLCO) DIFFUSING CAPACITY Louise Cesar MD [address] [place] [address] [address] [address] [place] [address] Referral IDStatusReasonStart DateExpiration DateVisits RequestedVisits [id number] Auto-Generated Referral * Outpatient Procedure (Routine) - AuthorizedSpecialtyDiagnoses / Procedures Referred By ContactReferred To [facility] Diagnoses Pericarditis, unspecified chronicity, unspecified type Procedures ECHO ECHO TTHRC R-T 2D W/WOM-MODE COMPL SPEC&COLR D Louise Cesar MD [address] [place] [address] [place] [address] Referral IDStatusReasonStart DateExpiration DateVisits RequestedVisits [id number] Auto-Generated Referral * MRI/CT (Routine) - ClosedSpecialtyDiagnoses / ProceduresReferred By Contact Referred To ContactCT IMAGING Diagnoses Interstitial pulmonary disease (HCC) Procedures CT CHEST W IVCON DIAGNOSTIC COMPUTED TOMOGRAPHY THORAX W/CONTRAST Louise Cesar MD [address] [place] [address] Ct Imaging [place] [address] Referral IDStatusReasonStart DateExpiration DateVisits RequestedVisits [id number] Auto-Generated Referral / [facility] for referral (narrative)* Outpatient Procedure (Routine) - ClosedSpecialtyDiagnoses / ProceduresReferred By ContactReferred To Contact [facility] Diagnoses Pericarditis, unspecified chronicity, unspecified type Procedures ECHO ECHO TTHRC R-T 2D W/WOM-MODE COMPL SPEC&COLR D Louise Cesar MD [address] [place] [address] [facility] [place] [address] Referral IDStatusReasonStart DateExpiration DateVisits RequestedVisits [id number] Auto-Generated Referral / [facility] for referral (narrative)No reason for referral information availableSouthern [facility] Work Phone: [facility] Narrative* Outpatient Procedure (Routine) - ClosedSpecialtyDiagnoses / ProceduresReferred By ContactReferred To [facility] Diagnoses Pericarditis, unspecified chronicity, unspecified type Procedures ECHO ECHO TTHRC R-T 2D W/WOM-MODE COMPL SPEC&COLR Louise Joseph MD [address] [place] [address] [facility] [place] [address] Referral IDStatusReasonStart DateExpiration DateVisits RequestedVisits [id number] Auto-Generated Referral [facility] for visit Narrative* Outpatient Procedure (Routine) - ClosedSpecialtyDiagnoses / ProceduresReferred By ContactReferred To Contact [facility] Diagnoses Diarrhea, unspecified type Procedures COLONOSCOPY DIAGNOSTIC COLONOSCOPY FLX DX W/COLLJ SPEC WHEN PFRMD Sue Terrell MD [address] [place] [address] [place] [address] Referral IDStatusReasonStenglewood DateExpiration DateVisits RequestedVisits [id number] Auto-Generated Referral [facility] for visit Narrative* Diagnostic Procedure Only (Routine) - ClosedSpecialtyDiagnoses / ProceduresReferred By ContactReferred To Contact X[facility] IMAGING Diagnoses Pleural effusion Procedures XR CHEST 1V DECUBITUS RIGHT RADIOLOGIC EXAM CHEST SINGLE VIEW Triston Riggs MD [address] [place] [address] Phone: tel: fax: XR IMAGING [place] [address] Referral IDStatusReMary [facility] DateExpiration DateVisits RequestedVisits [id number] Auto-Generated Referral / [facility] for visit Narrative* Outpatient Procedure (Routine) - ClosedSpecialtyDiagnoses / ProceduresReferred By ContactReferred To Contact [facility] Diagnoses Esophageal dysphagia Procedures EGD DIAGNOSTIC ESOPHAGOGASTRODUODENOSCOPY [place] [address] [place] [address] Phone: tel: fax: [facility] [place] [address] Referral IDStatusReasonStenglewood DateExpiration DateVisits RequestedVisits [id number] Auto-Generated Referral [facility] for visit Narrative* Diagnostic Procedure Only (Routine) - ClosedSpecialtyDiagnoses / ProceduresReferred By ContactReferred To Contact [facility] Diagnoses Elevated alkaline phosphatase level Procedures US ABD RIGHT UPPER QUADRANT US ABDOMINAL REAL TIME W/IMAGE LIMITED Xiomara Ly, LETICIA.SEO SPECIALIST [address] [place] [address] Phone: tel: fax: US IMAG[facility] [place] [address] Referral IDStausBon Secours DePaul Medical Center DateExpiration DateVisits RequestedVisits [id number] Auto-Generated Referral [facility] for visit Narrative* Diagnostic Procedure Only (Routine) - ClosedSpecialtyDiagnoses / ProceduresReferred By ContactReferred To Contact [facility] Diagnoses Hepatomegaly Procedures US ELASTOGRAPHY LIVER ULTRASOUND E[place]OGRAP[place] [address] [place] [address] Phone: tel: fax: [facility] [place] [address] Referral IDStatusBon [facility] DateExpiration DateVisits RequestedVisits [id number] Auto-Generated Referral [facility] [facility] [place] for visit Narrative* Diagnostic Procedure Only (Routine) - ClosedSpecialtyDiagnoses / ProceduresReferred By ContactReferred To Contact US IMAGING Diagnoses Other ascites Procedures US DOPPLER COMPLETE DUP-SCAN ARTL KRYSTAL ABDL/PEL/SCROT&/RPR ORGN COM Marlyn Hooper APRN.SEO SPECIALIST [address] [place] [address] Phone: tel: fax: US IMAGING [place] [address] Referral IDStatus[facility] DateExpiration DateVisits RequestedVisits [id number] Auto-Generated Referral [facility] Assessments DiagnosisPrimary osteoarthritis of right knee - PrimaryStatus post total right knee replacementDiagnosisPrimary osteoarthritis of right knee - PrimaryStatus post total right knee replacementDiagnosis Status post total knee replacement, bilateral Diagnosis Status post total knee replacement, bilateral- Primary History of Present Illness * Karthik Calloway MD - 01/29/2017 12:04 PM EDT Formatting of this note may be different from the original. [facility] [address] [place] [address], [address] [place] [address] Patient Name: Sav Raymundo Patient Age: 66 [...] note may be different from the original. [facility] [address] [facility], [address] [place], [place] [address] Patient Name: Sav Raymundo Patient Age: 66 [...] Huff, DO - 07/01/2019 10:05 AM EST [facility] [address] [place] [address] Patient Name: Sav Raymundo Patient Age: 69 [...] KNEE ARTHROPLASTY; Surgeon: Karthik Calloway MD; Location: [facility] OR; Service: ARTHROPLASTY KNEE TOTAL Right 06/25/2016 Procedure: RIGHT TOTAL KNEE ARTHROPLASTY ; Surgeon: Karthik Calloway MD; Location: [facility] OR; Service: BASAL CELL CARCINOMA EXCISION [...] file Gets together: Not on file Attends oriental orthodox service: Not on file Active member of [...] mouth every morning . vit A-vit C-vit G-vjgo-bugnzb (EYE VITAMIN AND MINERALS) 7,160-113-100 buqw-hj-nwto Tab Take 1 tablet by mouth every [...] with no interval change from most recentimaging. Isabella view shows the patella tracks well without [...] expedite correspondence this note was generated by [employer] voice recognition software. Somegrammatical or spelling errors may occur using the system. documented in this encounter* Nena Huff DO - 07/20/2020 2:42 PM EST [facility] [address] [place] [address] Patient Name: Sav Raymundo Patient Age: 70 [...] KNEE ARTHROPLASTY; Surgeon: Karthik Calloway MD; Location: [facility] OR; Service: ARTHROPLASTY KNEE TOTAL Right 06/25/2016 Procedure: RIGHT TOTAL KNEE ARTHROPLASTY ; Surgeon: Karthik Calloway MD; Location: [facility] OR; Service: BASAL CELL CARCINOMA EXCISION [...] file Gets together: Not on file Attends oriental orthodox service: Not on file Active member of [...] mg by mouth daily. vit A-vit C-vit Y-vvhr-rlsaoc (EYE VITAMIN AND MINERALS) 7,160-113-100 lkfl-yd-hjuv Tab Take 1 tablet by mouth every [...] with no interval change from most recentimaging. Isabella view shows the patella tracks well in [...] expedite correspondence this note was generated by [employer] voice recognition software. Somegrammatical or spelling errors [...] COMPUTED TOMOGRAPHY THORAX W/O Louise Boggs MD [address] [place] [address] Ct Imaging [place] [address] Referral IDStatusReasonStart DateExpiration DateVisits RequestedVisits [id number] Request Auto-Generated Referral /[id number] / ProceduresReferred By ContactReferred To ContactCT IMAGING Diagnoses Diarrhea, unspecified type Abdominal pain, unspecified abdominal location Procedures CT ENTEROGRAPHY W IVCON CT ABD & PELVIS W/CONTRAST Sue Terrell MD [address] [place] [address] Ct Imaging [place] [address] Referral IDStatusReasonStart DateExpiration DateVisits RequestedVisits [id number] Auto-Generated Referral [id number] / ProceduresReferred By ContactReferred To ContactGastroenterology Diagnoses Diarrhea, unspecified type Procedures CONSULT TO GASTROENTEROLOGY OFFICE/OUTPATIENT [facility] 60 MINUTES Steffen Mccarty MD [address] [place] [address] Referral IDStatusReasonStart DateExpiration DateVisits RequestedVisits [id number] PCP Requested Referral [id number] / ProceduresReferred By ContactReferred To ContactRheumatology Diagnoses Pleural effusion Elevated sed rate Elevated C-reactive protein (CRP) Procedures CONSULT TO RHEUM/IMMUN DISEASE OFFICE/OUTPATIENT [facility] 60 MINUTES Tita Landry APRN.SEO SPECIALIST [address] [place] [address] Referral IDStatusReasonStart DateExpiration DateVisits RequestedVisits [id number] PCP Requested Referral / Additional Source Comments Reason for Visit (unrecogniz ed section and content) ReasonCommentsConsultSpecialtyDiagnoses / ProceduresReferred By ContactReferred To ContactNephrology Diagnoses Elevated BUN Elevated serum creatinine Decreased GFR Procedures CONSULT TO NEPHROLOGY CONSULT TO NEPHROLOGY OFFICE/OUTPATIENT [facility] 60 MINUTES Xiomara Ly APRN.CNP [address] [place] [address] Phone: tel: fax: Referral IDStatusReasonStart DateExpiration DateVisits RequestedVisits [id number] PCP Requested Referral [id number]m Patient Follow-UpSpecialty Diagnoses / ProceduresReferred By ContactReferred To Contact Diagnoses Anasarca Procedures [facility] IP/OBS CARE HIGH MDM 75 MINUTES Hl-5 [facility] [address] [place] [address]. [place] [address] Referral IDStatusReasonStart DateExpiration DateVisits RequestedVisits [id number]-kfKxanxyViftfzpqswsasQgi carlito stays swollen but goes to a massage therapist and she gets the swelling to go down/ She 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 lymph drainageFollow-upReasonOnset DateCommentsMedication [id number]Onset DateCommentsMedication Refill 08/28/2022ReasonOnset DateCommentsMedication Yxmdqx8008/30/2022ReasonOnset Date CommentsMedication Ckxjua7302/11/2023ReasonCommentsExternal Referrals/resources ReasonCommentsSchedule SurgeryRight VATS biopsy/ pleurodesis cs=2.5 los =2-3 ReasonCommentsPatient Questionpt notReasonCommentsPre-Op ExamSpecialtyDiagnoses / ProceduresReferred By ContactReferred To ContactADMITTING Diagnoses Bronchiolar disease Procedures THORACENTESIS NEEDLE/CATH PLEURA W/IMAGING THORACENTESIS NEEDLE OR CATHETER ASPIRATION OF THE PLEURAL SPACE W IMAGING GUIDANCE [facility] Pulm Lab H[address] [address] Referral IDStatusReasonStenglewood DateExpiration DateVisits RequestedVisits [id number] NMSpecialtyDiagnoses / Procedures Referred By ContactReferred To ContactMOLECULAR & FUNCTIONAL IMAGING Diagnoses Pleural effusion Encounter for other preprocedural examination Procedures NM CARDIAC PERF STRESS/EXERCISE MYOCARDIAL SPECT MULTIPLE STUDIES Ronaldo Flood MD, PhD [address] [employer] [address] [place] [address] Molecular & Functional Imaging [address] [place] [address] Referral IDStatusReasonStart DateExpiration DateVisits RequestedVisits [id number] Auto-Generated Referral /[id number] and Confirm AppointmentsReasonComments EffusionReasonCommentsHospital Follow UpReasonCommentsReceived Outside Medical RecordsReasonCommentsEstablished Patient Follow-UpReasonCommentsBreathing ProblemPleural Effusion on the rightMedication Follow-upReasonCommentsPatient UpdatePleurex outputReasonCommentsPost Dc Program Call - Needs AttnReason CommentsPatient UpdateReasonCommentsSpirometrySpecialtyDiagnoses / Procedures Referred By ContactReferred To [facility] Diagnoses Chronic cough Pleural effusion Procedures NITRIC OXIDE, EXHALED NITRIC OXIDE GAS DETERMINATION Katerina Bravo, MARKETING SERVICES COORDINATOR.SEO SPECIALIST [address] [place] [address] [address] Referral IDStatusReasonLynnwood DateExpiration DateVisits RequestedVisits [id number] Auto-Generated Referral /[id number] / ProceduresReferred By ContactReferred To [facility] Diagnoses Chronic cough Pleural effusion Procedures SPIROMETRY WITH DILATOR IF OBSTRUCTED BRNCDILAT RSPSE SPMTRY PRE&POST-BRNCDILAT ADMN Katerina Bravo, MARKETING SERVICES COORDINATOR.SEO SPECIALIST [address] [place] [address] [address] Referral IDStatusReasonStart DateExpiration DateVisits RequestedVisits [id number] Auto-Generated Referral /[id number] / ProceduresReferred By ContactReferred To [facility] Diagnoses Chronic cough Pleural effusion Interstitial pulmonary disease (HCC) Procedures LUNG DIFFUSION CAPACITY (DLCO) DIFFUSING CAPACITY Louise Cesar MD [address] [place] [id number] [facility] [address] [place] [address] Referral IDStatusReasonStart DateExpiration DateVisits RequestedVisits [id number] Auto-Generated Referral [id number] / ProceduresReferred By ContactReferred To ContactUN[facility] Diagnoses Pleural effusion Interstitial pulmonary disease (HCC) Procedures LUNG VOLUMES Louise Cesar MD [address] [place] [phone] [facility] [address] [place] [address] Referral IDStatusReasonStart DateExpiration DateVisits RequestedVisits [id number] Auto-Generated Referral [id number]qcZptgcbewd / ProceduresReferred By ContactReferred To ContactCT IMAGING Diagnoses Interstitial pulmonary disease (HCC) Procedures CT CHEST W IVCON DIAGNOSTIC COMPUTED TOMOGRAPHY THORAX W/CONTRAST Louise Cesar MD [address] [place] [address] Ct Imaging [place] [address] Referral IDStatusReasonStart DateExpiration DateVisits RequestedVisits [id number] Auto-Generated Referral [id number] pleural effusionSpecialtyDiagnoses / ProceduresReferred By ContactReferred To ContactRheumatology Diagnoses Pleural effusion Elevated sed rate Elevated C-reactive protein (CRP) Procedures CONSULT TO RHEUM/IMMUN DISEASE OFFICE/OUTPATIENT [facility] 60 MINUTES Tita Landry, MARKETING SERVICES COORDINATOR.SEO SPECIALIST [address] [place] [address] Referral IDStatusReasonStart DateExpiration DateVisits RequestedVisits [id number] PCP Requested Referral [id number] CTSpecialtyDiagnoses / Procedures Referred By ContactReferred To ContactCT IMAGING Diagnoses Diarrhea, unspecified type Abdominal pain, unspecified abdominal location Procedures CT ENTEROGRAPHY W IVCON CT ABD & PELVIS W/CONTRAST Sue Terrell MD [address] [place] [address] Ct Imaging [place] [address] Referral IDStatusReasonStart DateExpiration DateVisits RequestedVisits [id number] Auto-Generated Referral [id number]pxujlutBgwdmogvy / Procedures Referred By ContactReferred To ContactGastroenterology Diagnoses Diarrhea, unspecified type Procedures CONSULT TO GASTROENTEROLOGY OFFICE/OUTPATIENT [facility] 60 MINUTES Steffen Mccarty MD [address] [place] [address] Referral IDStatusReasonStart DateExpiration DateVisits RequestedVisits [id number] PCP Requested Referral [id number] ProblemFollow upReasonComments Follow UpReasonCommentsEstablished PatientDiarrhea f/uReasonCommentsEffusion Recurrent pleural on rightReasonCommentsAppointmentReasonOnset DateComments Medication Ypiluz2307/08/2024ReasonOnset DateCommentsMedication Liroac2707/10/2024 ReasonCommentsOrdersReasonCommentsEye ExamReasonCommentsPatient QuestionReason CommentsPatient RequestReasonCommentsEstablished PatientReasonOnset DateComments Refill Gyekwgv0308/21/2024ReasonCommentsEstablished PatientDiarrhea 3 mos follow upReasonCommentsSkin CheckReasonCommentsAppointmentThoracentesisReasonComments Lab & Test ResultsHospital Follow UpReasonCommentsAppointment ConfirmationReason CommentsRadio Gen RMPReasonCommentsEstablished PatientAbdominal painAbdominal PainReasonCommentsRefill RequestSpecialtyDiagnoses / ProceduresReferred By ContactReferred To ContactADMITTING Diagnoses 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] Procedures THORACENTESIS NEEDLE/CATH PLEURA W/IMAGING THORACENTESIS NEEDLE OR CATHETER ASPIRATION OF THE PLEURAL SPACE W IMAGING GUIDANCE Admitting [address] [place] [address] Referral IDStatusReasonStart DateExpiration DateVisits RequestedVisits [id number] Main U2VsgqopDansgqimIyfohf UpReason CommentsRadio Gen BZ2AkhkznPltknplpTdi PatientReasonCommentsFollow UpShortness of BreathReasonCommentsRadio Gen B63BkjjsfRebfpkkwQghfrsmCrncthEemaythvqmnbygdg alkaline phosphataseSpecialtyDiagnoses / ProceduresReferred By ContactReferred To Contact Diagnoses Elevated alkaline phosphatase level Procedures CONSULT TO HEPATOLOGY OFFICE/OUTPATIENT [facility] 60 MINUTES Xiomara Ly, LETICIA.SEO SPECIALIST [address] [place] [address] Phone: tel: fax: Referral IDStatusResoutheast missouri community treatment centerStart DateExpiration DateVisits RequestedVisits [id number] PCP Requested Referral [id number] UpSpecialtyDiagnoses / ProceduresReferred By ContactReferred To ContactNephrology Diagnoses Elevated serum creatinine Procedures OFFICE/OUTPATIENT [facility] 60 MINUTES Marlyn Hooper, LETICIA.SEO SPECIALIST [address] [place] [address] Phone: tel: fax: Referral IDStatusReasonStart DateExpiration DateVisits RequestedVisits [id number] PCP Requested Referral /[id number] ProblemPT is here today with his spouse [...] male. Established patient relates he was in [facility] for 6 days 04/02/2025,Cellulitis left foot to groin. Presents today for Nail care and wound fuv of the left 2ndtoe. Patient states Doxycycline and Augmentin until Saturday. Patient has been using mupirocin ointment and band- aid.ReasonCommentsWound Sandra Raymundo is a 75 y.o. male who presents for wound fuv of the left 2nd. Patient relates daily mupirocin ointment and band- aid. Patient is wearing regular tennis shoe at this time. Stopped wearing surgical shoe 1 week ago, relates swelling has gone down. Patient has completed Augmentin and Doxycycline at this time. Care Teams (unrecognized sec tion and content) Team MemberRelationshipSpecialtyStart DateEnd Date Yuli Mariscal, DO [address] [facility] [place] [address] PCP - GeneralInternal Medicine06/29/14 Yuli Mariscal, DO [address] [facility] [place] [address] Internal Medicine06/29/14 Karthik Calloway MD Consulting PhysicianOrthopedic Surgery01/28/17Team MemberRelationshipSpecialty Start DateEnd Date Yuli Mariscal, DO [address] [facility] [place] [address] PCP - GeneralInternal Medicine06/29/14 Yuli Mariscal, DO [address] [facility] [place] [address] Internal Medicine06/29/14 Karthik Calloway MD [address] [facility] [place] [address] Consulting PhysicianOrthopedic Surgery01/28/17Team MemberRelationshipSpecialty Start DateEnd Date LoidaYuli, DO [address] [facility] [place] [address] PCP - GeneralInternal Medicine06/29/14 Yuil Mariscal, [address] [facility] [address] Internal Medicine06/29/14 Karthik Calloway MD [address] [facility] [place] [address] Consulting PhysicianOrthopedic Surgery01/28/17Team MemberRelationshipSpecialty Start DateEnd Date Yuli Mariscal, [address] [facility] [place] [address] PCP - GeneralInternal Medicine06/29/14 Yuli Mariscal DO [address] [facility] [place] [address] Internal Medicine06/29/14 Karthik Calloway MD [address] [facility] [place] [address] Consulting PhysicianOrthopedic Surgery01/28/17Team MemberRelationshipSpecialty Start DateEnd Date Yuli Mariscal DO [address] [facility] [place] [address] PCP - GeneralInternal Medicine06/29/14 Yuli Mariscal DO [address] [facility] [place] [address] Internal Medicine06/29/14 Karthik Calloway MD [address] [facility] [place] [address] Consulting PhysicianOrthopedic Surgery01/28/17Team MemberRelationshipSpecialty Start DateEnd Date Yuli Mariscal DO [address] [facility] [address] PCP - GeneralInternal Medicine06/29/14 Yuli Mariscal DO [address] [facility] [address] Internal Medicine06/29/14 Karthik Calloway MD [address] [facility] [place] [address] Consulting PhysicianOrthopedic Surgery01/28/17Team MemberRelationshipSpecialty Start DateEnd Date Yuli Mariscal, DO [address] [facility] [place] [address] PCP - GeneralInternal Medicine06/29/14 Yuli Mariscal, DO [address] [facility] [place] [address] Internal Medicine06/29/14 Karthik Calloway MD [address] [facility] [place] [address] Consulting PhysicianOrthopedic Surgery01/28/17Team MemberRelationshipSpecialty Start DateEnd Date Yuli Mariscal, DO [address] [facility] [place] [address] PCP - GeneralInternal Medicine06/29/14 Yuli Mariscal, DO [address] [facility] [place] [address] Internal Medicine06/29/14 Karthik Calloway MD [address] [facility] [place] [address] Consulting PhysicianOrthopedic Surgery01/28/17Team MemberRelationshipSpecialty Start DateEnd Date Yuli Mariscal, DO [address] [facility] [address] PCP - GeneralInternal Medicine06/29/14 Yuli Mariscal, DO [address] [facility] [place] [address] Internal Medicine06/29/14 Karthik Calloway MD [address] [facility] [place] [address] Consulting PhysicianOrthopedic Surgery01/28/17 Team Status: Inactive Member [...] Status: Active Member Role Status John Mariscal , DO Primary Care Provide r, [...] 2023 Team Status: Inactive Member Role Status John Clemente , Attending Provider Active St art: October 02, 2023 End: October 02, 2023Team MemberRelationshipSpecialtyStart DateEnd Date Yuli Mariscal DO [address] [facility] [place] [address] PCP - GeneralInternal Medicine12/07/20 Jere Sales [address] [facility] [address] [place] [address] ReferringGastroenterology12/05/20Team MemberRelationshipSpecialtyStart DateEnd Date Yuli Mariscal DO [address] [facility] [place] [address] PCP - GeneralInternal Medicine12/07/20 Jere Sales [address] [place] [address] ReferringGastroenterology12/05/20 Sintia Clemente DO [address] [place] [facility] [place] [place] [address] Internal Medicine10/16/23Team MemberRelationshipSpecialtyStart DateEnd Date Yuli Mariscal DO [address] [facility] [place] [address] PCP - GeneralInternal Medicine12/07/20 Jere Sales [address] [place] [address] ReferringGastroenterology12/05/20 Sintia Clemente DO [address] [place] [facility] [place] [address] Internal Medicine10/16/23Team MemberRelationshipSpecialtyStart DateEnd Date Yuli Mariscal DO [address] [facility] [place] [address] PCP - GeneralInternal Medicine12/07/20 Jere Sales [address] [place] [address] ReferringGastroenterology12/05/20 Sintia Clemente DO [address] [place] [facility] [place] [address] Internal Medicine10/16/23Team MemberRelationshipSpecialtyStart DateEnd Date Yuli Mariscal DO [address] [facility] [place] [address] PCP - GeneralInternal Medicine12/07/20 Jere Sales [address] [facility] [address] [place] [address] ReferringGastroenterology12/05/20 Sintia Clemente DO [address] [place] [facility] [place] [address] Internal Medicine10/16/23Team MemberRelationshipSpecialtyStart DateEnd Date Yuli Mariscal DO [address] [facility] [place] [address] PCP - GeneralInternal Medicine12/07/20 Jere Sales [address] [facility] [address] [place] [address] ReferringGastroenterology12/05/20 Sintia Clemente DO [address] [place] [facility] [place] [address] Internal Medicine10/16/23Team MemberRelationshipSpecialtyStart DateEnd Date Yuli Mariscal DO [address] [facility] [place] [address] PCP - GeneralInternal Medicine12/07/20 BeerJere wheeler [address] [place] [address] ReferringGastroenterology12/05/20 Sintia Clemente DO [address] [place] [facility] [place] [address] Internal Medicine10/16/23Team MemberRelationshipSpecialtyStart DateEnd Date Yuli Mariscal, [address] [facility] [place] [address] PCP - GeneralInternal Medicine12/07/20 [facility] [address] [place] [address] ReferringGastroenterology12/05/20 Sintia Clemente DO [address] [place] [facility] [place] [address] Internal Medicine10/16/23Team MemberRelationshipSpecialtyStart DateEnd Date Yuli Mariscal DO [address] [facility] [place] [address] PCP - GeneralInternal Medicine12/07/20 [facility] Jere Cynthia [address] [place] [address] ReferringGastroenterology12/05/20 Sintia Clemente DO [address] [place] [facility] [place] [address] Internal Medicine10/16/23Team MemberRelationshipSpecialtyStart DateEnd Date Yuli Mariscal DO [address] [facility] [place] [address] PCP - GeneralInternal Medicine12/07/20 Jere Sales [address] [facility] [address] [place] [address] ReferringGastroenterology12/05/20 Sintia Clemente DO [address] [place] [facility] [place] [address] Internal Medicine10/16/23Team MemberRelationshipSpecialtyStart DateEnd Date Yuli Mariscal DO [address] [facility] [place] [address] PCP - GeneralInternal Medicine12/07/20 Jere Sales [address] [facility] [address] [place] [address] ReferringGastroenterology12/05/20 Sintia Clemente DO [address] [place] [facility] [place] [address] Internal Medicine10/16/23Team MemberRelationshipSpecialtyStart DateEnd Date Yuli Mariscal DO [address] [facility] [place] [address] PCP - GeneralInternal Medicine12/07/20 Jere Sales [address] [facility] [address] [place] [address] ReferringGastroenterology12/05/20 Sintia Clemente DO [address] [place] [facility] [place] [address] Internal Medicine10/16/23Team MemberRelationshipSpecialtyStart DateEnd Yuli Howell DO [address] [facility] [place] [address] PCP - GeneralInternal Medicine12/07/20 Jere Sales [address] [place] [address] ReferringGastroenterology12/05/20 Sintia Clemente DO [address] [place] [facility] [place] [address] Internal Medicine10/16/23Team MemberRelationshipSpecialtyStart DateEnd Yuli Howell DO [address] [facility] [place] [address] PCP - GeneralInternal Medicine12/07/20 Jere Sales [address] [place] [address] ReferringGastroenterology12/05/20 Sintia Clemente DO [address] [place] [facility] [place] [address] Internal Medicine10/16/23Team MemberRelationshipSpecialtyStart DateEnd Yuli Howell DO [address] [facility] [place] [address] PCP - GeneralInternal Medicine12/07/20 Jere Sales [address] [address] ReferringGastroenterology12/05/20 Sintia Clemente DO [address] [place] [address] Internal Medicine10/16/23Team MemberRelationshipSpecialtyStart DateEnd Date Yuli Mariscal, [address] [facility] [place] [address] PCP - GeneralInternal Medicine12/07/20 Jere Sales [address] [address] ReferringGastroenterology12/05/20 Sintia Clemente DO [address] [place] [facility] [place] [address] Internal Medicine10/16/23Team MemberRelationshipSpecialtyStart DateEnd Date Yuli Mariscal DO [address] [place] [address] PCP - GeneralInternal Medicine12/07/20 Jere Sales [address] [address] ReferringGastroenterology12/05/20 Sintia Clemente DO [address] [place] [facility] [place] [address] Internal Medicine10/16/23Team MemberRelationshipSpecialtyStart DateEnd Date Yuli Mariscal DO [address] [place] [address] PCP - GeneralInternal Medicine12/07/20 Jere Sales [address] [place] [address] ReferringGastroenterology12/05/20 Sintia Clemente DO [address] [place] [facility] [place] [address] Internal Medicine10/16/23Team MemberRelationshipSpecialtyStart DateEnd Date Yuli Mariscal DO [address] [facility] [address] PCP - GeneralInternal Medicine12/07/20 Jere Sales [address] [place] [address] ReferringGastroenterology12/05/20 Sintia Clemente DO [address] [place] [facility] [place] [address] Internal Medicine10/16/23Team MemberRelationshipSpecialtyStart DateEnd Date Yuli Mariscal DO [address] [facility] [place] [address] PCP - GeneralInternal Medicine12/07/20 Jere Sales [address] [place] [address] ReferringGastroenterology12/05/20 Sintia Clemente DO [address] [place] [facility] [place] [address] Internal Medicine10/16/23Team MemberRelationshipSpecialtyStart DateEnd Date Yuli Mariscal DO [address] [facility] [place] [address] PCP - GeneralInternal Medicine12/07/20 Jere Sales [address] [place] [address] ReferringGastroenterology12/05/20 Sintia Clemente DO [address] [place] [facility] [place] [address] Internal Medicine10/16/23Team MemberRelationshipSpecialtyStart DateEnd Date Yuli Mariscal DO [address] [facility] [place] [address] PCP - GeneralInternal Medicine12/07/20 Jere Sales [address] [place] [address] ReferringGastroenterology12/05/20 Sintia Clemente DO [address] [place] [facility] [place] [address] Internal Medicine10/16/23Team MemberRelationshipSpecialtyStart DateEnd Date Yuli Mariscal DO [address] [facility] [place] [address] PCP - GeneralInternal Medicine12/07/20 Jere Slaes [address] [place] [address] ReferringGastroenterology12/05/20 Sintia Clemente DO [address] [place] [address] Internal Medicine10/16/23Team MemberRelationshipSpecialtyStart DateEnd Date Yuli Mariscal, [address] [place] [address] PCP - GeneralInternal Medicine12/07/20 Jere Sales [address] [address] ReferringGastroenterology12/05/20 Sintia Clemente DO [address] [place] [address] Internal Medicine10/16/23Team MemberRelationshipSpecialtyStart DateEnd Date Yuli Mariscal DO [address] [place] [address] PCP - GeneralInternal Medicine12/07/20 Jere Sales [address] [address] ReferringGastroenterology12/05/20 Sintia Clemente DO [address] [place] [facility] [place] [address] Internal Medicine10/16/23Team MemberRelationshipSpecialtyStart DateEnd Date Yuli Mariscal DO [address] [facility] [address] PCP - GeneralInternal Medicine12/07/20 Jere Sales [address] [address] ReferringGastroenterology12/05/20 Sintia Clemente DO [address] [place] [facility] [place] [address] Internal Medicine10/16/23Team MemberRelationshipSpecialtyStart DateEnd Date Yuli Mariscal, [address] [facility] [address] PCP - GeneralInternal Medicine12/07/20 Jere Sales [address] [address] ReferringGastroenterology12/05/20 Sintia Clemente DO [address] [place] [facility] [place] [address] Internal Medicine10/16/23Team MemberRelationshipSpecialtyStart DateEnd Date Yuli Mariscal DO [address] [facility] [address] PCP - GeneralInternal Medicine12/07/20 Jere Sales [address] [place] [address] ReferringGastroenterology12/05/20 Sintia Clemente DO [address] [place] [facility] [place] [address] Internal Medicine10/16/23Team MemberRelationshipSpecialtyStart DateEnd Date Yuli Mariscal DO [address] [facility] [address] PCP - GeneralInternal Medicine12/07/20 Jere Sales [address] [facility] [address] [place] [address] ReferringGastroenterology12/05/20 Sintia Clemente DO [address] [place] [facility] [place] [address] Internal Medicine10/16/23Team MemberRelationshipSpecialtyStart DateEnd Date Yuli Mariscal DO [address] [facility] [address] PCP - GeneralInternal Medicine12/07/20 Jere Sales [address] [place] [address] ReferringGastroenterology12/05/20 Sintia Clemente DO [address] [place] [facility] [place] [address] Internal Medicine10/16/23Team MemberRelationshipSpecialtyStart DateEnd Date Yuli Mariscal DO [address] [facility] [place] [address] PCP - GeneralInternal Medicine12/07/20 Jere Sales [address] [facility] [address] [place] [address] ReferringGastroenterology12/05/20 Sintia Clemente DO [address] [place] [facility] [place] [address] Internal Medicine10/16/23Team MemberRelationshipSpecialtyStart DateEnd Date Yuli Mariscal DO [address] [facility] [place] [address] PCP - GeneralInternal Medicine12/07/20 Jere Sales [address] [facility] [address] [place] [address] ReferringGastroenterology12/05/20 Sintia Clemente DO [address] [place] [facility] [place] [address] Internal Medicine10/16/23Team MemberRelationshipSpecialtyStart DateEnd Date Yuli Mariscal DO [address] [facility] [place] [address] PCP - GeneralInternal Medicine12/07/20 Jere Sales [address] [facility] [address] [place] [address] ReferringGastroenterology12/05/20 Sintia Clemente DO [address] [place] [facility] [place] [address] Internal Medicine10/16/23Team MemberRelationshipSpecialtyStart DateEnd Yuli Howell DO [address] [facility] [place] [address] PCP - GeneralInternal Medicine12/07/20 Jere Sales [address] [place] [address] ReferringGastroenterology12/05/20 Sintia Clemente DO [address] [place] [facility] [place] [address] Internal Medicine10/16/23Team MemberRelationshipSpecialtyStart DateEnd Yuli Howell, [address] [facility] [place] [address] PCP - GeneralInternal Medicine12/07/20 Henrry Jere Cynthia [address] [place] [address] ReferringGastroenterology12/05/20 Sintia Clemente DO [address] [place] [facility] [place] [address] Internal Medicine10/16/23Team MemberRelationshipSpecialtyStart DateEnd Yuli Howell DO [address] [facility] [place] [address] PCP - GeneralInternal Medicine12/07/20 Jere Sales [address] [place] [address] ReferringGastroenterology12/05/20 Sintia Clemente DO [address] [place] [facility] [place] [address] Internal Medicine10/16/23Team MemberRelationshipSpecialtyStart DateEnd Yuli Howell DO [address] [facility] [place] [address] PCP - GeneralInternal Medicine12/07/20 Jere Sales [address] [place] [address] ReferringGastroenterology12/05/20 Sintia Clemente DO [address] [place] [facility] [place] [address] Internal Medicine10/16/23Team MemberRelationshipSpecialtyStart DateEnd Date Yuli Mariscal DO [address] [facility] [place] [address] PCP - GeneralInternal Medicine12/07/20 Jere Sales [address] [place] [address] ReferringGastroenterology12/05/20 Sintia Clemente DO [address] [place] [facility] [place] [address] Internal Medicine10/16/23Team MemberRelationshipSpecialtyStart DateEnd Date Yuli Mariscal DO [address] [facility] [place] [address] PCP - GeneralInternal Medicine12/07/20 Jere Sales [address] [place] [address] ReferringGastroenterology12/05/20 Sintia Clemente DO [address] [place] [facility] [place] [address] Internal Medicine10/16/23Team MemberRelationshipSpecialtyStart DateEnd Yuli Howell DO [address] [facility] [place] [address] PCP - GeneralInternal Medicine12/07/20 Jere Sales [address] [place] [address] ReferringGastroenterology12/05/20 Sintia Clemente DO [address] [place] [facility] [place] [address] Internal Medicine10/16/23Team MemberRelationshipSpecialtyStart DateEnd Yuli Howell DO [address] [facility] [place] [address] PCP - GeneralInternal Medicine12/07/20 Jere Sales [address] [place] [address] ReferringGastroenterology12/05/20 Sintia Clemente DO [address] [place] [facility] [place] [address] Internal Medicine10/16/23Team MemberRelationshipSpecialtyStart DateEnd Yuli Howell DO [address] [facility] [place] [address] PCP - GeneralInternal Medicine12/07/20 Jere Sales [address] [place] [address] ReferringGastroenterology12/05/20 Sintia Clemente DO [address] [place] [address] Internal Medicine10/16/23Team MemberRelationshipSpecialtyStart DateEnd Date Yuli Mariscal DO [address] [place] [address] PCP - GeneralInternal Medicine12/07/20 Jere Sales [address] [place] [id number] ReferringGastroenterology12/05/20 Sintia Clemente DO [address] [place] [address] Internal Medicine10/16/23Team MemberRelationshipSpecialtyStart [place] [address] [place] [address] PCP - GeneralInternal Medicine12/07/20 Jere Sales MD [address] [address] ReferringGastroenterology12/05/20 Sintia Clemente DO [address] [place] [address] Internal Medicine10/16/23Team MemberRelationshipSpecialtyStart DateEnd Date Yuli Mariscal DO [address] [place] [address] PCP - GeneralInternal Medicine06/29/14 Yuli Mariscal DO [address] [facility] [place] [address] Internal Medicine06/29/14 Karthik Calloway MD [address] [facility] [place] [address] Consulting PhysicianOrthopedic Surgery01/28/17Team MemberRelationshipSpecialty Start DateEnd Date Yuli Mariscal DO [address] [facility] [place] [address] PCP - GeneralInternal Medicine12/07/20 Jere Sales MD [address] [address] ReferringGastroenterology12/05/20 Sintia Clemente DO [address] [place] [facility] [place] [address] Internal Medicine10/16/23Team MemberRelationshipSpecialtyStart DateEnd Date Yuli Mariscal DO [address] [facility] [place] [address] PCP - GeneralInternal Medicine12/07/20 Jere Sales MD [address] [address] ReferringGastroenterology12/05/20 Sintia Clemente DO [address] [place] [facility] [place] [address] Internal Medicine10/16/23Team MemberRelationshipSpecialtyStart DateEnd Date Yuli Mariscal DO [address] [facility] [place] [address] PCP - GeneralInternal Medicine12/07/20 Jere Sales MD [address] [place] [address] ReferringGastroenterology12/05/20 Sintia Clemente DO [address] [place] [facility] [place] [address] Internal Medicine10/16/23Team MemberRelationshipSpecialtyStart DateEnd Date Yuli Mariscal DO [address] [facility] [place] [address] PCP - GeneralInternal Medicine12/07/20 Jere Sales MD [address] [place] [address] ReferringGastroenterology12/05/20 Sintia Clemente DO [address] [place] [facility] [place] [address] Internal Medicine10/16/23Team MemberRelationshipSpecialtyStart DateEnd Date Yuli Mariscal DO [address] [facility] [place] [address] PCP - GeneralInternal Medicine12/07/20 Jere Sales MD [address] [place] [address] ReferringGastroenterology12/05/20 Sintia Clemente DO [address] [place] [facility] [place] [address] Internal Medicine10/16/23Team MemberRelationshipSpecialtyStart DateEnd Date Yuli Mariscal DO [address] [facility] [place] [address] PCP - GeneralInternal Medicine12/07/20 Jere Sales MD [address] [address] ReferringGastroenterology12/05/20 Sintia Clemente DO [address] [place] [facility] [place] [address] Internal Medicine10/16/23Team MemberRelationshipSpecialtyStart DateEnd Date Yuli Mariscal DO [address] [facility] [place] [address] PCP - GeneralInternal Medicine12/07/20 Jere Sales MD [address] [address] ReferringGastroenterology12/05/20 Sintia Clemente DO [address] [place] [facility] [place] [address] Internal Medicine10/16/23Team MemberRelationshipSpecialtyStart DateEnd Date Yuli Mariscal DO [address] [facility] [place] [address] PCP - GeneralInternal Medicine12/07/20 Jere Sales MD [address] [address] ReferringGastroenterology12/05/20 Sintia Clemente DO [address] [place] [facility] [place] [address] Internal Medicine10/16/23Team MemberRelationshipSpecialtyStart DateEnd Date Yuli Mariscal DO [address] [facility] [place] [address] PCP - GeneralInternal Medicine12/07/20 Jere Sales MD [address] [address] ReferringGastroenterology12/05/20 Sintia Clemente DO [address] [place] [facility] [place] [address] Internal Medicine10/16/23Team MemberRelationshipSpecialtyStart DateEnd Date Yuli Mariscal DO [address] [facility] [place] [address] PCP - GeneralInternal Medicine12/07/20 Jere Sales MD [address] [address] ReferringGastroenterology12/05/20 Sintia Clemente DO [address] [place] [facility] [place] [address] Internal Medicine10/16/23Team MemberRelationshipSpecialtyStart DateEnd Date Yuli Mariscal DO [address] [facility] [place] [address] PCP - GeneralInternal Medicine12/07/20 Jere Sales MD [address] [facility] [address] [place] [address] ReferringGastroenterology12/05/20 Sintia Clemente DO [address] [place] [facility] [place] [address] Internal Medicine10/16/23Team MemberRelationshipSpecialtyStart DateEnd Date Yuli Mariscal DO [address] [facility] [place] [address] PCP - GeneralInternal Medicine12/07/20 Jere Sales MD [address] [place] [address] ReferringGastroenterology12/05/20 Sintia Clemente DO [address] [place] [facility] [place] [address] Internal Medicine10/16/23Team MemberRelationshipSpecialtyStart DateEnd Date Yuli Mariscal DO [address] [facility] [place] [address] PCP - GeneralInternal Medicine12/07/20 Jere Sales MD [address] [place] [address] ReferringGastroenterology12/05/20 Sintia Clemente DO [address] [place] [address] Internal Medicine10/16/23Team MemberRelationshipSpecialtyStart DateEnd Yuli Howell DO [address] [place] [address] PCP - GeneralInternal Medicine12/07/20 Jere Sales MD [address] [address] ReferringGastroenterology12/05/20 Sintia Clemente DO [address] [place] [address] Internal Medicine10/16/23 Team Status: Active Member Role Status Dates Yuli Mariscal , DO Primary Care Provider Active Team Status: Inactive Member Role Status Dates Yuli Mariscal DO Primary Care Provide r, Attending Provider Active Start: July 14, 2024 End: July 14, 2024 Team Status: Active Member Role Status John Mariscal DO Primary Care Provide r, Attending Provider Active Start: July 20, 2024 Team Status: Active Member Role Status Dates Yuli Mariscal DO Primary Care Provide r, Attending Provider Active Start: July 29, 2024 Team Status: Active Member Role Status John Mariscal DO Primary Care Provider Active Start: August 13, 2024 Cynthia Gamez ProviderActiveStart: August 13, 2024 Team Status: Active Member Role Status Dates Yuli Mariscal DO Primary Care Provider Active Start: August 24, 2024 Dominique Maldonado ProviderActiveStart: August 24, 2024 Team Status: Active Member Role Status John Mariscal DO Primary Care Provide r, Attending Provider Active Start: August 28, 2024 Team Status: Active Member Role Status Dates Yuli Mariscal DO Primary Care Provider Active Start: August 30, 2024 RAJEEV Miller-CAttenamrik ProviderActiveStart: August 30, 2024 Team Status: Active [...] DateEnd Date Yuli Mariscal DO [address] [place] [address] PCP - GeneralInternal Medicine12/07/20 Jere Sales MD [address] [place], [place] [address] ReferringGastroenterology12/05/20 Sintia Clemente DO [address] [place] [id number] Internal Medicine10/16/23Team MemberRelationshipSpecialtyStart DateEnd Date Yuli Mariscal DO [address] [place] [address] PCP - GeneralInternal Medicine12/07/20 Jere Sales MD [address] [place] [address] ReferringGastroenterology12/05/20 Sintia Clemente DO [address] [place] [address] Internal Medicine10/16/23Team MemberRelationshipSpecialtyStart DateEnd Date Yuli Mariscal DO [address] [facility] [place] [address] PCP - GeneralInternal Medicine12/07/20 Jere Sales MD [address] [place] [address] ReferringGastroenterology12/05/20 Sintia Clemente DO [address] [place] [facility] [place] [address] Internal Medicine10/16/23Team MemberRelationshipSpecialtyStart DateEnd Date Yuli Mariscal DO [address] [facility] [place] [address] PCP - GeneralInternal Medicine12/07/20 Jere Sales MD [address] [address] ReferringGastroenterology12/05/20 Sintia Clemente DO [address] [place] [facility] [place] [address] Internal Medicine10/16/23Team MemberRelationshipSpecialtyStart DateEnd Date Yuli Mariscal DO [address] [facility] [place] [address] PCP - GeneralInternal Medicine12/07/20 Jere Sales MD [address] [address] ReferringGastroenterology12/05/20 Sintia Clemente DO [address] [place] [facility] [place] [address] Internal Medicine10/16/23Team MemberRelationshipSpecialtyStart DateEnd Date Yuli Mariscal DO [address] [facility] [place] [address] PCP - GeneralInternal Medicine12/07/20 Jere Sales MD [address] [address] ReferringGastroenterology12/05/20 Sintia Clemente DO [address] [place] [facility] [place] [address] Internal Medicine10/16/23Team MemberRelationshipSpecialtyStart DateEnd Date Yuli Mairscal DO [address] [facility] [place] [address] PCP - GeneralInternal Medicine12/07/20 Jere Sales MD [address] [address] ReferringGastroenterology12/05/20 Sintia Clemente DO [address] [place] [facility] [place] [address] Internal Medicine10/16/23Team MemberRelationshipSpecialtyStart DateEnd Date Yuli Mariscal DO [address] [facility] [place] [address] PCP - GeneralInternal Medicine12/07/20 Jere Sales MD [address] [address] ReferringGastroenterology12/05/20 Sintia Clemente DO [address] [place] [facility] [place] [address] Internal Medicine10/16/23Team MemberRelationshipSpecialtyStart [place] [address] [place] [address] PCP - GeneralFamily Medicine12/29/23 Jere Sales MD [address] [address] ReferringGastroenterology12/05/20 Sintia Clemente DO [address] [place] [facility] [place] [address] Internal Medicine10/16/23Team MemberRelationshipSpecialtyStart [place] [address] [place] [address] PCP - GeneralFamily Medicine12/29/23 Jere Sales MD [address] [address] ReferringGastroenterology12/05/20 Sintia Clemente DO [address] [place] [facility] [place] [address] Internal Medicine10/16/23Team MemberRelationshipSpecialtyStart [place] [address] [place] [address] PCP - GeneralFamily Medicine12/29/23 Jere Sales MD [address] [place] [address] ReferringGastroenterology12/05/20 Sintia Clemente DO [address] [place] [facility] [place] [address] Internal Medicine10/16/23Team MemberRelationshipSpecialtyStart [place] [address] [place] [address] PCP - GeneralFamily Medicine12/29/23 Jere Sales MD [address] [place] [address] ReferringGastroenterology12/05/20 Sintia Clemente DO [address] [place] [facility] [place] [address] Internal Medicine10/16/23Team MemberRelationshipSpecialtyStart [place] [address] [place] [address] PCP - GeneralFamily Medicine12/29/23 Jere Sales MD [address] [place] [address] ReferringGastroenterology12/05/20 Sintia Clemente DO [address] [place] [facility] [place] [address] Internal Medicine10/16/23Team MemberRelationshipSpecialtyStart [place] [address] [place] [address] PCP - GeneralFamily Medicine12/29/23 Jere Sales MD [address] [place] [address] ReferringGastroenterology12/05/20 Sintia Clemente DO [address] [place] [facility] [place] [address] Internal Medicine10/16/23Team MemberRelationshipSpecialtyStart [place] [address] [place] [address] PCP - GeneralFamily Medicine12/29/23 Jere Sales MD [address] [place] [address] ReferringGastroenterology12/05/20 Sintia Clemente DO [address] [place] [facility] [place] [address] Internal Medicine10/16/23Team MemberRelationshipSpecialtyStart [place] [address] [place] [address] PCP - GeneralFamily Medicine12/29/23 Jere Sales MD [address] [address] ReferringGastroenterology12/05/20 Sintia Clemente DO [address] [place] [facility] [place] [address] Internal Medicine10/16/23Team MemberRelationshipSpecialtyStart [place] [address] [place] [address] PCP - GeneralFamily Medicine12/29/23 Jere Sales MD [address] [place] [address] ReferringGastroenterology12/05/20 Sintia Clemente DO [address] [place] [facility] [place] [address] Internal Medicine10/16/23Team MemberRelationshipSpecialtyStart [place] [address] [place] [address] PCP - GeneralFamily Medicine12/29/23 Jere Sales MD [address] [place] [address] ReferringGastroenterology12/05/20 Sintia Clemente DO [address] [place] [facility] [place] [address] Internal Medicine10/16/23Team MemberRelationshipSpecialtyStart [place] [address] [place] [address] PCP - GeneralFamily Medicine12/29/23 Jere Sales MD [address] [address] ReferringGastroenterology12/05/20 Sintia Clemente DO [address] [place] [facility] [place] [address] Internal Medicine10/16/23Team MemberRelationshipSpecialtyStart [place] [address] [place] [address] PCP - GeneralFamily Medicine12/29/23 Jere Sales MD [address] [address] ReferringGastroenterology12/05/20 Sintia Clemente DO [address] [place] [facility] [place] [address] Internal Medicine10/16/23Team MemberRelationshipSpecialtyStart [place] [address] [place] [address] PCP - GeneralFamily Medicine12/29/23 Jere Sales MD [address] [place] [address] ReferringGastroenterology12/05/20 Sintia Clemente DO [address] [place] [facility] [place] [address] Internal Medicine10/16/23Team MemberRelationshipSpecialtyStart [place] [address] [place] [address] PCP - Generalmily Medicine12/29/23 Jere Sales MD [address] [place] [address] ReferringGastroenterology12/05/20 Sintia Clemente DO [address] [place] [facility] [place] [address] Internal Medicine10/16/23Team MemberRelationshipSpecialtyStart [place] [address] [place] [address] PCP - Generalmily Medicine12/29/23 Jere Sales MD [address] [place] [address] ReferringGastroenterology12/05/20 Sintia Clemente DO [address] [place] [facility] [place] [address] Internal Medicine10/16/23Team MemberRelationshipSpecialtyStart [place] [address] [place] [address] PCP - GeneralFamily Medicine12/29/23 Jere Sales MD [address] [address] ReferringGastroenterology12/05/20 Sintia Clemente DO [address] [place] [facility] [place] [address] Internal Medicine10/16/23Team MemberRelationshipSpecialtyStart [place] [address] [place] [address] PCP - GeneralFamily Medicine12/29/23 Jere Sales MD [address] [address] ReferringGastroenterology12/05/20 Sintia Clemente DO [address] [place] [facility] [place] [address] Internal Medicine10/16/23Team MemberRelationshipSpecialtyStart [place] [address] [place] [address] PCP - GeneralFamily Medicine12/29/23 Jere Sales MD [address] [place] [address] ReferringGastroenterology12/05/20 Sintia Clemente DO [address] [place] [facility] [place] [address] Internal Medicine10/16/23Team MemberRelationshipSpecialtyStart [place] [address] [place] [address] PCP - GeneralFamily Medicine12/29/23 Jere Sales MD [address] [place] [address] ReferringGastroenterology12/05/20 Sintia Clemente DO [address] [place] [facility] [place] [address] Internal Medicine10/16/23Team MemberRelationshipSpecialtyStart [place] [address] [place] [address] PCP - GeneralFamily Medicine12/29/23 Jere Sales MD [address] [address] ReferringGastroenterology12/05/20 Sintia Clemente DO [address] [place] [facility] [place] [address] Internal Medicine10/16/23Team MemberRelationshipSpecialtyStart DateEnd Date Yuli Mariscal DO [address] [place] [facility] [address] PCP - GeneralInternal Medicine03/12/25Team MemberRelationshipSpecialtyStart Date End Date Yuli Mariscal DO [address] [facility] [address] PCP - GeneralInternal Medicine03/12/25Team MemberRelationshipSpecialtyStart Date End Date Yuli Mariscal DO [address] [place] [facility] [place] [address] PCP - GeneralInternal Medicine03/12/25Team MemberRelationshipSpecialtyStart Date End Date Yuli Mariscal DO [address] [place] [facility] [place] [address] PCP - GeneralInternal Medicine03/12/25Team MemberRelationshipSpecialtyStart Date End Date Yuli Mariscal DO [address] [facility] [place] [id number] PCP - GeneralInternal Medicine03/12/25Team MemberRelationshipSpecialtyStart Date End Date Yuli Mariscal DO [address] [facility] [id number] PCP - GeneralInternal Medicine03/12/25 Team Status: Active Member Role/Relationship Status Dates Yuli Ball , DO Primary Care Provider Active Team Status: Active Member Role/Relationship Status Dates Yuli Mariscal DO Primary Care Provider Active Start: April 02, 2025 Yehuda Boggs , DOAttending ProviderActiveStart: April 02, 2025 Team Status: Active Member Role/Relationship Status Dates Yuli Mariscal DO Primary Care Provider Active Start: April 03, 2025 Oblacy Kaur , MDAttending ProviderActiveStart: April 03, 2025 Team Status: Active Member Role/Relationship Status Dates Yuli Mariscal DO Primary Care Provider Active Start: April 04, 2025 Oblacy Garciaomar , MDAttending ProviderActiveStart: April 04, 2025 Team Status: Active Member Role/Relationship Status Dates Yuli Mariscal DO Primary Care Provider Active Start: April 05, 2025 Oblacy Kaur , MDAttending ProviderActiveStart: April 05, 2025 Team Status: Active Member Role/Relationship Status Dates Yuli Mariscal DO Primary Care Provider Active Start: April 06, 2025 Pablito Hoffman , MDAttending ProviderActiveStart: April 06, 2025 Team Status: Active Member Role/Relationship Status Dates Yuli Mariscal DO Primary Care Provider Active Start: April 07, 2025 Mohluann Hoffman , MDAttending ProviderActiveStart: April 07, 2025 Team Status: [...] 2025Team MemberRelationshipSpecialtyStart DateEnd Date Yuli Mariscal DO [address] [place] [address] PCP - GeneralInternal Medicine03/12/25Team MemberRelationshipSpecialtyStart Date End Date Yuli Mariscal DO [address] [place] [address] PCP - GeneralInternal Medicine03/12/25 Team Status: Active Member Role/Relationship Status Dates Yuli Mariscal DO Primary Care Provider Active Start: April 12, 2025 Milton Combs ProviderActiveStart: April 12, 2025 Team Status: Inactive Member Role/Relationship Status Dates Yuli Mariscal DO Primary Care Provider Active Start: April 19, 2025 End: April 19Milton Merida ProviderActiveStart: April 19, 2025 End: April 19, 2025Team MemberRelationshipSpecialtyStart DateEnd Date Yuli Mariscal [address] [place] [phone] PCP - GeneralInternal Medicine03/12/25Team MemberRelationshipSpecialtyStart Date End Date Loida Yuli Cantu DO [address] [place] [phone] PCP - GeneralInternal Medicine03/12/25 (unrecognized sect ion and content) No Status Records FoundNo Status Records FoundNo Status Records FoundNo Status Records FoundNo Status Records FoundNo Status Records FoundNo Status Records FoundNo Status Records FoundNo Status Records FoundNo Status Records Found INFORMATION SOURCE (unrecogn ized section and content) DATE CREATED AUTHOR 03/22/2022 [facility] DATE CREATED AUTHOR AUTHOR'S ORGANIZ ATION 02/16/2023 [facility] DATE CREATED AUTHOR AUTHOR'S ORGANIZ ATION 10/13/2023 [facility] DATE CREATED AUTHOR AUTHOR'S ORGANIZ ATION 03/19/2024 [facility] DATE CREATED AUTHOR AUTHOR'S ORGANIZ ATION 03/23/2024 [facility] DATE CREATED AUTHOR AUTHOR'S ORGANIZ ATION 05/02/2024 [facility] DATE CREATED AUTHOR AUTHOR'S ORGANIZ ATION 11/28/2024 [facility] DATE CREATED AUTHOR AUTHOR'S ORGANIZ ATION 03/31/2025 [facility] DATE CREATED AUTHOR AUTHOR'S ORGANIZ ATION 04/18/2025 [facility] DATE CREATED AUTHOR AUTHOR'S ORGANIZ ATION 04/29/2025 [facility] Goals (unrecognized section and content) Goals may [...] abuse patient.[facility] CenterIn the event this information is protected by the Federal Confidentiality of Alcohol and Drug Abuse Patient Records regulations: The Federal rules restrict any use of the information to criminally investigate or prosecute any alcohol or drug abuse patient.[facility] CenterIn the event this information is protected by the Federal Confidentiality of Alcohol and Drug Abuse Patient Records regulations: The Federal rules restrict any use of the information to criminally investigate or prosecute any alcohol or drug abuse patient.[facility] CenterIn the event this information is protected by the Federal Confidentiality of Alcohol and Drug Abuse Patient Records regulations: The Federal rules restrict any use of the information to criminally investigate or prosecute any alcohol or drug abuse patient.[facility] CenterIn the event this information is protected by the Federal Confidentiality of Alcohol and Drug Abuse Patient Records regulations: The Federal rules restrict any use of the information to criminally investigate or prosecute any alcohol or drug abuse patient.[facility] CenterIn the event this information is protected by the Federal Confidentiality of Alcohol and Drug Abuse Patient Records regulations: The Federal rules restrict any use of the information to criminally investigate or prosecute any alcohol or drug abuse patient.[facility] CenterIn the event this information is protected by the Federal Confidentiality of Alcohol and Drug Abuse Patient Records regulations: The Federal rules restrict any use of the information to criminally investigate or prosecute any alcohol or drug abuse patient.[facility] CenterIn the event this information is protected by the Federal Confidentiality of Alcohol and Drug Abuse Patient Records regulations: The Federal rules restrict any use of the information to criminally investigate or prosecute any alcohol or drug abuse patient.[facility] CenterIn the event this information is protected by the Federal Confidentiality of Alcohol and Drug Abuse Patient Records regulations: The Federal rules restrict any use of the information to criminally investigate or prosecute any alcohol or drug abuse patient.[facility] CenterIn the event this information is protected by the Federal Confidentiality of Alcohol and Drug Abuse Patient Records regulations: The Federal rules restrict any use of the information to criminally investigate or prosecute any alcohol or drug abuse patient.[facility] CenterIn the event this information is protected by the Federal Confidentiality of Alcohol and Drug Abuse Patient Records regulations: The Federal rules restrict any use of the information to criminally investigate or prosecute any alcohol or drug abuse patient.[facility] the event this information is protected by the Federal Confidentiality of Alcohol and Drug Abuse Patient Records regulations: The Federal rules restrict any use of the information to criminally investigate or prosecute any alcohol or drug abuse patient.[facility] CenterIn the event this information is protected by the Federal Confidentiality of Alcohol and Drug Abuse Patient Records regulations: The Federal rules restrict any use of the information to criminally investigate or prosecute any alcohol or drug abuse patient.[facility] CenterIn the event this information is protected by the Federal Confidentiality of Alcohol and Drug Abuse Patient Records regulations: The Federal rules restrict any use of the information to criminally investigate or prosecute any alcohol or drug abuse patient.[facility] CenterIn the event this information is protected by the Federal Confidentiality of Alcohol and Drug Abuse Patient Records regulations: The Federal rules restrict any use of the information to criminally investigate or prosecute any alcohol or drug abuse patient.[facility] CenterIn the event this information is protected by the Federal Confidentiality of Alcohol and Drug Abuse Patient Records regulations: The Federal rules restrict any use of the information to criminally investigate or prosecute any alcohol or drug abuse patient.[facility] CenterIn the event this information is protected by the Federal Confidentiality of Alcohol and Drug Abuse Patient Records regulations: The Federal rules restrict any use of the information to criminally investigate or prosecute any alcohol or drug abuse patient.[facility] CenterIn the event this information is protected by the Federal Confidentiality of Alcohol and Drug Abuse Patient Records regulations: The Federal rules restrict any use of the information to criminally investigate or prosecute any alcohol or drug abuse patient.[facility] CenterIn the event this information is protected by the Federal Confidentiality of Alcohol and Drug Abuse Patient Records regulations: The Federal rules restrict any use of the information to criminally investigate or prosecute any alcohol or drug abuse patient.[facility] CenterIn the event this information is protected by the Federal Confidentiality of Alcohol and Drug Abuse Patient Records regulations: The Federal rules restrict any use of the information to criminally investigate or prosecute any alcohol or drug abuse patient.[facility] CenterIn the event this information is protected by the Federal Confidentiality of Alcohol and Drug Abuse Patient Records regulations: The Federal rules restrict any use of the information to criminally investigate or prosecute any alcohol or drug abuse patient.[facility] CenterIn the event this information is protected by the Federal Confidentiality of Alcohol and Drug Abuse Patient Records regulations: The Federal rules restrict any use of the information to criminally investigate or prosecute any alcohol or drug abuse patient.[facility] CenterIn the event this information is protected by the Federal Confidentiality of Alcohol and Drug Abuse Patient Records regulations: The Federal rules restrict any use of the information to criminally investigate or prosecute any alcohol or drug abuse patient.[facility] CenterIn the event this information is protected by the Federal Confidentiality of Alcohol and Drug Abuse Patient Records regulations: The Federal rules restrict any use of the information to criminally investigate or prosecute any alcohol or drug abuse patient.[facility] CenterIn the event this information is protected by the Federal Confidentiality of Alcohol and Drug Abuse Patient Records regulations: The Federal rules restrict any use of the information to criminally investigate or prosecute any alcohol or drug abuse patient.[facility] CenterIn the event this information is protected by the Federal Confidentiality of Alcohol and Drug Abuse Patient Records regulations: The Federal rules restrict any use of the information to criminally investigate or prosecute any alcohol or drug abuse patient.[facility] CenterIn the event this information is protected by the Federal Confidentiality of Alcohol and Drug Abuse Patient Records regulations: The Federal rules restrict any use of the information to criminally investigate or prosecute any alcohol or drug abuse patient.[facility] CenterIn the event this information is protected by the Federal Confidentiality of Alcohol and Drug Abuse Patient Records regulations: The Federal rules restrict any use of the information to criminally investigate or prosecute any alcohol or drug abuse patient.[facility] CenterIn the event this information is protected by the Federal Confidentiality of Alcohol and Drug Abuse Patient Records regulations: The Federal rules restrict any use of the information to criminally investigate or prosecute any alcohol or drug abuse patient.[facility] CenterIn the event this information is protected by the Federal Confidentiality of Alcohol and Drug Abuse Patient Records regulations: The Federal rules restrict any use of the information to criminally investigate or prosecute any alcohol or drug abuse patient.[facility] CenterIn the event this information is protected by the Federal Confidentiality of Alcohol and Drug Abuse Patient Records regulations: The Federal rules restrict any use of the information to criminally investigate or prosecute any alcohol or drug abuse patient.[facility] CenterIn the event this information is protected by the Federal Confidentiality of Alcohol and Drug Abuse Patient Records regulations: The Federal rules restrict any use of the information to criminally investigate or prosecute any alcohol or drug abuse patient.[facility] CenterIn the event this information is protected by the Federal Confidentiality of Alcohol and Drug Abuse Patient Records regulations: The Federal rules restrict any use of the information to criminally investigate or prosecute any alcohol or drug abuse patient.[facility] CenterIn the event this information is protected by the Federal Confidentiality of Alcohol and Drug Abuse Patient Records regulations: The Federal rules restrict any use of the information to criminally investigate or prosecute any alcohol or drug abuse patient.[facility] CenterIn the event this information is protected by the Federal Confidentiality of Alcohol and Drug Abuse Patient Records regulations: The Federal rules restrict any use of the information to criminally investigate or prosecute any alcohol or drug abuse patient.[facility] CenterIn the event this information is protected by the Federal Confidentiality of Alcohol and Drug Abuse Patient Records regulations: The Federal rules restrict any use of the information to criminally investigate or prosecute any alcohol or drug abuse patient.[facility] CenterIn the event this information is protected by the Federal Confidentiality of Alcohol and Drug Abuse Patient Records regulations: The Federal rules restrict any use of the information to criminally investigate or prosecute any alcohol or drug abuse patient.[facility] CenterIn the event this information is protected by the Federal Confidentiality of Alcohol and Drug Abuse Patient Records regulations: The Federal rules restrict any use of the information to criminally investigate or prosecute any alcohol or drug abuse patient.[facility] CenterIn the event this information is protected by the Federal Confidentiality of Alcohol and Drug Abuse Patient Records regulations: The Federal rules restrict any use of the information to criminally investigate or prosecute any alcohol or drug abuse patient.[facility] CenterIn the event this information is protected by the Federal Confidentiality of Alcohol and Drug Abuse Patient Records regulations: The Federal rules restrict any use of the information to criminally investigate or prosecute any alcohol or drug abuse patient.[facility] CenterIn the event this information is protected by the Federal Confidentiality of Alcohol and Drug Abuse Patient Records regulations: The Federal rules restrict any use of the information to criminally investigate or prosecute any alcohol or drug abuse patient.[facility] CenterIn the event this information is protected by the Federal Confidentiality of Alcohol and Drug Abuse Patient Records regulations: The Federal rules restrict any use of the information to criminally investigate or prosecute any alcohol or drug abuse patient.[facility] CenterIn the event this information is protected by the Federal Confidentiality of Alcohol and Drug Abuse Patient Records regulations: The Federal rules restrict any use of the information to criminally investigate or prosecute any alcohol or drug abuse patient.[facility] CenterIn the event this information is protected by the Federal Confidentiality of Alcohol and Drug Abuse Patient Records regulations: The Federal rules restrict any use of the information to criminally investigate or prosecute any alcohol or drug abuse patient.[facility] CenterIn the event this information is protected by the Federal Confidentiality of Alcohol and Drug Abuse Patient Records regulations: The Federal rules restrict any use of the information to criminally investigate or prosecute any alcohol or drug abuse patient.[facility] CenterIn the event this information is protected by the Federal Confidentiality of Alcohol and Drug Abuse Patient Records regulations: The Federal rules restrict any use of the information to criminally investigate or prosecute any alcohol or drug abuse patient.[facility] CenterIn the event this information is protected by the Federal Confidentiality of Alcohol and Drug Abuse Patient Records regulations: The Federal rules restrict any use of the information to criminally investigate or prosecute any alcohol or drug abuse patient.[facility] CenterIn the event this information is protected by the Federal Confidentiality of Alcohol and Drug Abuse Patient Records regulations: The Federal rules restrict any use of the information to criminally investigate or prosecute any alcohol or drug abuse patient.[facility] CenterIn the event this information is protected by the Federal Confidentiality of Alcohol and Drug Abuse Patient Records regulations: The Federal rules restrict any use of the information to criminally investigate or prosecute any alcohol or drug abuse patient.[facility] CenterIn the event this information is protected by the Federal Confidentiality of Alcohol and Drug Abuse Patient Records regulations: The Federal rules restrict any use of the information to criminally investigate or prosecute any alcohol or drug abuse patient.[facility] CenterIn the event this information is protected by the Federal Confidentiality of Alcohol and Drug Abuse Patient Records regulations: The Federal rules restrict any use of the information to criminally investigate or prosecute any alcohol or drug abuse patient.[facility] CenterIn the event this information is protected by the Federal Confidentiality of Alcohol and Drug Abuse Patient Records regulations: The Federal rules restrict any use of the information to criminally investigate or prosecute any alcohol or drug abuse patient.[facility] CenterIn the event this information is protected by the Federal Confidentiality of Alcohol and Drug Abuse Patient Records regulations: The Federal rules restrict any use of the information to criminally investigate or prosecute any alcohol or drug abuse patient.[facility] CenterIn the event this information is protected by the Federal Confidentiality of Alcohol and Drug Abuse Patient Records regulations: The Federal rules restrict any use of the information to criminally investigate or prosecute any alcohol or drug abuse patient.[facility] CenterIn the event this information is protected by the Federal Confidentiality of Alcohol and Drug Abuse Patient Records regulations: The Federal rules restrict any use of the information to criminally investigate or prosecute any alcohol or drug abuse patient.[facility] CenterIn the event this information is protected by the Federal Confidentiality of Alcohol and Drug Abuse Patient Records regulations: The Federal rules restrict any use of the information to criminally investigate or prosecute any alcohol or drug abuse patient.[facility] CenterIn the event this information is protected by the Federal Confidentiality of Alcohol and Drug Abuse Patient Records regulations: The Federal rules restrict any use of the information to criminally investigate or prosecute any alcohol or drug abuse patient.[facility] CenterIn the event this information is protected by the Federal Confidentiality of Alcohol and Drug Abuse Patient Records regulations: The Federal rules restrict any use of the information to criminally investigate or prosecute any alcohol or drug abuse patient.[facility] CenterIn the event this information is protected by the Federal Confidentiality of Alcohol and Drug Abuse Patient Records regulations: The Federal rules restrict any use of the information to criminally investigate or prosecute any alcohol or drug abuse patient.[facility] CenterIn the event this information is protected by the Federal Confidentiality of Alcohol and Drug Abuse Patient Records regulations: The Federal rules restrict any use of the information to criminally investigate or prosecute any alcohol or drug abuse patient.[facility] CenterIn the event this information is protected by the Federal Confidentiality of Alcohol and Drug Abuse Patient Records regulations: The Federal rules restrict any use of the information to criminally investigate or prosecute any alcohol or drug abuse patient.[facility]In the event this information is protected by the Federal Confidentiality of Alcohol and Drug Abuse Patient Records regulations: The Federal rules restrict any use of the information to criminally investigate or prosecute any alcohol or drug abuse patient.[facility] CenterIn the event this information is protected by the Federal Confidentiality of Alcohol and Drug Abuse Patient Records regulations: The Federal rules restrict any use of the information to criminally investigate or prosecute any alcohol or drug abuse patient.[facility] CenterIn the event this information is protected by the Federal Confidentiality of Alcohol and Drug Abuse Patient Records regulations: The Federal rules restrict any use of the information to criminally investigate or prosecute any alcohol or drug abuse patient.[facility] CenterIn the event this information is protected by the Federal Confidentiality of Alcohol and Drug Abuse Patient Records regulations: The Federal rules restrict any use of the information to criminally investigate or prosecute any alcohol or drug abuse patient.[facility] CenterIn the event this information is protected by the Federal Confidentiality of Alcohol and Drug Abuse Patient Records regulations: The Federal rules restrict any use of the information to criminally investigate or prosecute any alcohol or drug abuse patient.[facility] CenterIn the event this information is protected by the Federal Confidentiality of Alcohol and Drug Abuse Patient Records regulations: The Federal rules restrict any use of the information to criminally investigate or prosecute any alcohol or drug abuse patient.[facility] CenterIn the event this information is protected by the Federal Confidentiality of Alcohol and Drug Abuse Patient Records regulations: The Federal rules restrict any use of the information to criminally investigate or prosecute any alcohol or drug abuse patient.[facility] [facility] CenterIn the event this information is protected by the Federal Confidentiality of Alcohol and Drug Abuse Patient Records regulations: The Federal rules restrict any use of the information to criminally investigate or prosecute any alcohol or drug abuse patient.[facility] CenterIn the event this information is protected by the Federal Confidentiality of Alcohol and Drug Abuse Patient Records regulations: The Federal rules restrict any use of the information to criminally investigate or prosecute any alcohol or drug abuse patient.[facility] CenterIn the event this information is protected by the Federal Confidentiality of Alcohol and Drug Abuse Patient Records regulations: The Federal rules restrict any use of the information to criminally investigate or prosecute any alcohol or drug abuse patient.[facility] CenterIn the event this information is protected by the Federal Confidentiality of Alcohol and Drug Abuse Patient Records regulations: The Federal rules restrict any use of the information to criminally investigate or prosecute any alcohol or drug abuse patient.[facility] CenterIn the event this information is protected by the Federal Confidentiality of Alcohol and Drug Abuse Patient Records regulations: The Federal rules restrict any use of the information to criminally investigate or prosecute any alcohol or drug abuse patient.[facility] CenterIn the event this information is protected by the Federal Confidentiality of Alcohol and Drug Abuse Patient Records regulations: The Federal rules restrict any use of the information to criminally investigate or prosecute any alcohol or drug abuse patient.[facility] CenterIn the event this information is protected by the Federal Confidentiality of Alcohol and Drug Abuse Patient Records regulations: The Federal rules restrict any use of the information to criminally investigate or prosecute any alcohol or drug abuse patient.[facility] CenterIn the event this information is protected by the Federal Confidentiality of Alcohol and Drug Abuse Patient Records regulations: The Federal rules restrict any use of the information to criminally investigate or prosecute any alcohol or drug abuse patient.[facility] CenterIn the event this information is protected by the Federal Confidentiality of Alcohol and Drug Abuse Patient Records regulations: The Federal rules restrict any use of the information to criminally investigate or prosecute any alcohol or drug abuse patient.[facility] CenterIn the event this information is protected by the Federal Confidentiality of Alcohol and Drug Abuse Patient Records regulations: The Federal rules restrict any use of the information to criminally investigate or prosecute any alcohol or drug abuse patient.[facility] CenterIn the event this information is protected by the Federal Confidentiality of Alcohol and Drug Abuse Patient Records regulations: The Federal rules restrict any use of the information to criminally investigate or prosecute any alcohol or drug abuse patient.[facility] CenterIn the event this information is protected by the Federal Confidentiality of Alcohol and Drug Abuse Patient Records regulations: The Federal rules restrict any use of the information to criminally investigate or prosecute any alcohol or drug abuse patient.[facility] CenterIn the event this information is protected by the Federal Confidentiality of Alcohol and Drug Abuse Patient Records regulations: The Federal rules restrict any use of the information to criminally investigate or prosecute any alcohol or drug abuse patient.[facility] CenterIn the event this information is protected by the Federal Confidentiality of Alcohol and Drug Abuse Patient Records regulations: The Federal rules restrict any use of the information to criminally investigate or prosecute any alcohol or drug abuse patient.[facility] CenterIn the event this information is protected by the Federal Confidentiality of Alcohol and Drug Abuse Patient Records regulations: The Federal rules restrict any use of the information to criminally investigate or prosecute any alcohol or drug abuse patient.[facility] CenterIn the event this information is protected by the Federal Confidentiality of Alcohol and Drug Abuse Patient Records regulations: The Federal rules restrict any use of the information to criminally investigate or prosecute any alcohol or drug abuse patient.[facility] CenterIn the event this information is protected by the Federal Confidentiality of Alcohol and Drug Abuse Patient Records regulations: The Federal rules restrict any use of the information to criminally investigate or prosecute any alcohol or drug abuse patient.[facility] CenterIn the event this information is protected by the Federal Confidentiality of Alcohol and Drug Abuse Patient Records regulations: The Federal rules restrict any use of the information to criminally investigate or prosecute any alcohol or drug abuse patient.[facility] CenterIn the event this information is protected by the Federal Confidentiality of Alcohol and Drug Abuse Patient Records regulations: The Federal rules restrict any use of the information to criminally investigate or prosecute any alcohol or drug abuse patient.[facility] CenterIn the event this information is protected by the Federal Confidentiality of Alcohol and Drug Abuse Patient Records regulations: The Federal rules restrict any use of the information to criminally investigate or prosecute any alcohol or drug abuse patient.[facility] CenterIn the event this information is protected by the Federal Confidentiality of Alcohol and Drug Abuse Patient Records regulations: The Federal rules restrict any use of the information to criminally investigate or prosecute any alcohol or drug abuse patient.[facility] CenterIn the event this information is protected by the Federal Confidentiality of Alcohol and Drug Abuse Patient Records regulations: The Federal rules restrict any use of the information to criminally investigate or prosecute any alcohol or drug abuse patient.[facility] CenterIn the event this information is protected by the Federal Confidentiality of Alcohol and Drug Abuse Patient Records regulations: The Federal rules restrict any use of the information to criminally investigate or prosecute any alcohol or drug abuse patient.[facility] CenterIn the event this information is protected by the Federal Confidentiality of Alcohol and Drug Abuse Patient Records regulations: The Federal rules restrict any use of the information to criminally investigate or prosecute any alcohol or drug abuse patient.[facility] CenterIn the event this information is protected by the Federal Confidentiality of Alcohol and Drug Abuse Patient Records regulations: The Federal rules restrict any use of the information to criminally investigate or prosecute any alcohol or drug abuse patient.[facility] CenterIn the event this information is protected by the Federal Confidentiality of Alcohol and Drug Abuse Patient Records regulations: The Federal rules restrict any use of the information to criminally investigate or prosecute any alcohol or drug abuse patient.[facility] CenterIn the event this information is protected by the Federal Confidentiality of Alcohol and Drug Abuse Patient Records regulations: The Federal rules restrict any use of the information to criminally investigate or prosecute any alcohol or drug abuse patient.[facility] CenterIn the event this information is protected by the Federal Confidentiality of Alcohol and Drug Abuse Patient Records regulations: The Federal rules restrict any use of the information to criminally investigate or prosecute any alcohol or drug abuse patient.[facility] CenterIn the event this information is protected by the Federal Confidentiality of Alcohol and Drug Abuse Patient Records regulations: The Federal rules restrict any use of the information to criminally investigate or prosecute any alcohol or drug abuse patient.[facility] CenterIn the event this information is protected by the Federal Confidentiality of Alcohol and Drug Abuse Patient Records regulations: The Federal rules restrict any use of the information to criminally investigate or prosecute any alcohol or drug abuse patient.[facility] CenterIn the event this information is protected by the Federal Confidentiality of Alcohol and Drug Abuse Patient Records regulations: The Federal rules restrict any use of the information to criminally investigate or prosecute any alcohol or drug abuse patient.[facility] CenterIn the event this information is protected by the Federal Confidentiality of Alcohol and Drug Abuse Patient Records regulations: The Federal rules restrict any use of the information to criminally investigate or prosecute any alcohol or drug abuse patient.[facility] CenterIn the event this information is protected by the Federal Confidentiality of Alcohol and Drug Abuse Patient Records regulations: The Federal rules restrict any use of the information to criminally investigate or prosecute any alcohol or drug abuse patient.[facility] CenterIn the event this information is protected by the Federal Confidentiality of Alcohol and Drug Abuse Patient Records regulations: The Federal rules restrict any use of the information to criminally investigate or prosecute any alcohol or drug abuse patient.[facility] CenterIn the event this information is protected by the Federal Confidentiality of Alcohol and Drug Abuse Patient Records regulations: The Federal rules restrict any use of the information to criminally investigate or prosecute any alcohol or drug abuse patient.[facility] CenterIn the event this information is protected by the Federal Confidentiality of Alcohol and Drug Abuse Patient Records regulations: The Federal rules restrict any use of the information to criminally investigate or prosecute any alcohol or drug abuse patient.[facility] CenterIn the event this information is protected by the Federal Confidentiality of Alcohol and Drug Abuse Patient Records regulations: The Federal rules restrict any use of the information to criminally investigate or prosecute any alcohol or drug abuse patient.[facility] CenterIn the event this information is protected by the Federal Confidentiality of Alcohol and Drug Abuse Patient Records regulations: The Federal rules restrict any use of the information to criminally investigate or prosecute any alcohol or drug abuse patient.[facility] CenterIn the event this information is protected by the Federal Confidentiality of Alcohol and Drug Abuse Patient Records regulations: The Federal rules restrict any use of the information to criminally investigate or prosecute any alcohol or drug abuse patient.[facility] CenterIn the event this information is protected by the Federal Confidentiality of Alcohol and Drug Abuse Patient Records regulations: The Federal rules restrict any use of the information to criminally investigate or prosecute any alcohol or drug abuse patient.[facility] CenterIn the event this information is protected by the Federal Confidentiality of Alcohol and Drug Abuse Patient Records regulations: The Federal rules restrict any use of the information to criminally investigate or prosecute any alcohol or drug abuse patient.[facility] CenterIn the event this information is protected by the Federal Confidentiality of Alcohol and Drug Abuse Patient Records regulations: The Federal rules restrict any use of the information to criminally investigate or prosecute any alcohol or drug abuse patient.[facility] CenterIn the event this information is protected by the Federal Confidentiality of Alcohol and Drug Abuse Patient Records regulations: The Federal rules restrict any use of the information to criminally investigate or prosecute any alcohol or drug abuse patient.[facility]In the event this information is protected by the Federal Confidentiality of Alcohol and Drug Abuse Patient Records regulations: The Federal rules restrict any use of the information to criminally investigate or prosecute any alcohol or drug abuse patient.[facility] CenterIn the event this information is protected by the Federal Confidentiality of Alcohol and Drug Abuse Patient Records regulations: The Federal rules restrict any use of the information to criminally investigate or prosecute any alcohol or drug abuse patient.[facility] CenterIn the event this information is protected by the Federal Confidentiality of Alcohol and Drug Abuse Patient Records regulations: The Federal rules restrict any use of the information to criminally investigate or prosecute any alcohol or drug abuse patient.[facility] CenterIn the event this information is protected by the Federal Confidentiality of Alcohol and Drug Abuse Patient Records regulations: The Federal rules restrict any use of the information to criminally investigate or prosecute any alcohol or drug abuse patient.[facility] CenterIn the event this information is protected by the Federal Confidentiality of Alcohol and Drug Abuse Patient Records regulations: The Federal rules restrict any use of the information to criminally investigate or prosecute any alcohol or drug abuse patient.[facility] CenterIn the event this information is protected by the Federal Confidentiality of Alcohol and Drug Abuse Patient Records regulations: The Federal rules restrict any use of the information to criminally investigate or prosecute any alcohol or drug abuse patient.[facility] CenterIn the event this information is protected by the Federal Confidentiality of Alcohol and Drug Abuse Patient Records regulations: The Federal rules restrict any use of the information to criminally investigate or prosecute any alcohol or drug abuse patient.[facility] CenterIn the event this information is protected by the Federal Confidentiality of Alcohol and Drug Abuse Patient Records regulations: The Federal rules restrict any use of the information to criminally investigate or prosecute any alcohol or drug abuse patient.[facility] CenterIn the event this information is protected by the Federal Confidentiality of Alcohol and Drug Abuse Patient Records regulations: The Federal rules restrict any use of the information to criminally investigate or prosecute any alcohol or drug abuse patient.[facility] CenterIn the event this information is protected by the Federal Confidentiality of Alcohol and Drug Abuse Patient Records regulations: The Federal rules restrict any use of the information to criminally investigate or prosecute any alcohol or drug abuse patient.[facility] CenterIn the event this information is protected by the Federal Confidentiality of Alcohol and Drug Abuse Patient Records regulations: The Federal rules restrict any use of the information to criminally investigate or prosecute any alcohol or drug abuse patient.[facility] CenterIn the event this information is protected by the Federal Confidentiality of Alcohol and Drug Abuse Patient Records regulations: The Federal rules restrict any use of the information to criminally investigate or prosecute any alcohol or drug abuse patient.[facility] CenterIn the event this information is protected by the Federal Confidentiality of Alcohol and Drug Abuse Patient Records regulations: The Federal rules restrict any use of the information to criminally investigate or prosecute any alcohol or drug abuse patient.[facility] CenterIn the event this information is protected by the Federal Confidentiality of Alcohol and Drug Abuse Patient Records regulations: The Federal rules restrict any use of the information to criminally investigate or prosecute any alcohol or drug abuse patient.[facility] CenterIn the event this information is protected by the Federal Confidentiality of Alcohol and Drug Abuse Patient Records regulations: The Federal rules restrict any use of the information to criminally investigate or prosecute any alcohol or drug abuse patient.[facility] CenterIn the event this information is protected by the Federal Confidentiality of Alcohol and Drug Abuse Patient Records regulations: The Federal rules restrict any use of the information to criminally investigate or prosecute any alcohol or drug abuse patient.[facility] CenterIn the event this information is protected by the Federal Confidentiality of Alcohol and Drug Abuse Patient Records regulations: The Federal rules restrict any use of the information to criminally investigate or prosecute any alcohol or drug abuse patient.[facility] CenterIn the event this information is protected by the Federal Confidentiality of Alcohol and Drug Abuse Patient Records regulations: The Federal rules restrict any use of the information to criminally investigate or prosecute any alcohol or drug abuse patient.[facility] CenterIn the event this information is protected by the Federal Confidentiality of Alcohol and Drug Abuse Patient Records regulations: The Federal rules restrict any use of the information to criminally investigate or prosecute any alcohol or drug abuse patient.[facility] CenterIn the event this information is protected by the Federal Confidentiality of Alcohol and Drug Abuse Patient Records regulations: The Federal rules restrict any use of the information to criminally investigate or prosecute any alcohol or drug abuse patient.[facility] CenterIn the event this information is protected by the Federal Confidentiality of Alcohol and Drug Abuse Patient Records regulations: The Federal rules restrict any use of the information to criminally investigate or prosecute any alcohol or drug abuse patient.[facility] CenterIn the event this information is protected by the Federal Confidentiality of Alcohol and Drug Abuse Patient Records regulations: The Federal rules restrict any use of the information to criminally investigate or prosecute any alcohol or drug abuse patient.[facility] CenterIn the event this information is protected by the Federal Confidentiality of Alcohol and Drug Abuse Patient Records regulations: The Federal rules restrict any use of the information to criminally investigate or prosecute any alcohol or drug abuse patient.[facility] CenterIn the event this information is protected by the Federal Confidentiality of Alcohol and Drug Abuse Patient Records regulations: The Federal rules restrict any use of the information to criminally investigate or prosecute any alcohol or drug abuse patient.[facility] CenterIn the event this information is protected by the Federal Confidentiality of Alcohol and Drug Abuse Patient Records regulations: The Federal rules restrict any use of the information to criminally investigate or prosecute any alcohol or drug abuse patient.[facility] CenterIn the event this information is protected by the Federal Confidentiality of Alcohol and Drug Abuse Patient Records regulations: The Federal rules restrict any use of the information to criminally investigate or prosecute any alcohol or drug abuse patient.[facility] CenterIn the event this information is protected by the Federal Confidentiality of Alcohol and Drug Abuse Patient Records regulations: The Federal rules restrict any use of the information to criminally investigate or prosecute any alcohol or drug abuse patient.[facility] CenterIn the event this information is protected by the Federal Confidentiality of Alcohol and Drug Abuse Patient Records regulations: The Federal rules restrict any use of the information to criminally investigate or prosecute any alcohol or drug abuse patient.[facility] FOR RECORDS PERTAINING TO PATIENTS [...] BE BASED ON THE PRIMARY CLINICAL RECORDS. [facility] [employer] [facility]. provides no warranty or guarantee of the accuracy or completeness of information in this document.
[2025-05-07 12:17] LABS: Alanine Aminotransferase 19 U/L (16-63); Albumin Globulin Ratio 0.8; Albumin Level 3.3 g/dL (3.4-5.0); Alkaline Phosphatase 107 U/L (46-116); Anion Gap 14.7; Aspartate Amino Transferase 12 U/L (15-37); Blood Urea Nitrogen 44.0 mg/dL (7.0-18.0); Calcium 8.9 mg/dL (8.5-10.1); Carbon Dioxide 24.5 mmol/L (21.0-32.0); Chloride 99 mmol/L (98-107); Estimated GFR (African America 43 (>=60 mL/min/1.73m^2); Estimated GFR (Non-African Ame 35 (>=60 mL/min/1.73m^2); Globulin 4.0 g/dL; Glucose 82 mg/dL (74-106); Potassium 5.2 mmol/L (3.5-5.1); Sodium 133 mmol/L (136-145); Total Protein 7.3 g/dL (6.4-8.2)
[2025-05-07 13:05] LABS: Hematocrit 31.9 % (42.0-54.0); Hemoglobin 10.0 g/dL (14.0-18.0); Immature Granulocytes Abs Auto 0.09 10^3/uL (0.00-0.03); Immature Granulocytes Pct Auto 1.0 % (0.0-0.5); Lymphocytes Absolute Auto 0.8 10^3/uL (1.2-3.8); Mean Corpuscular HGB Conc 31.3 g/dL (29.9-35.2); Mean Corpuscular Hemoglobin 30.0 pg (25.9-34.0); Mean Corpuscular Volume 95.8 fL (80.0-94.0); Platelet Count 306 10^3/uL (150-450); Red Blood Count 3.33 10^6/uL (4.70-6.10); White Blood Count 8.9 10^3/uL (4.0-11.0)
== END 2025-05-07 11:29 | disposition home or self-care (01) ==
LOC: LAB 11:30
PROVIDERS: PCP Internal Medicine; Visit Provider Internal Medicine
DX: I12.9 Hypertensive chronic kidney disease with stage 1 through stage 4 chronic kidney disease, or unspecified chronic kidney disease (principal); R60.1 Generalized edema; N18.31 Chronic kidney disease, stage 3a
CPT/HCPCS: 36415; 80053; 85025

== ENCOUNTER 2025-06-03 10:00 | Outpatient (OUT) | payer MEDICARE, SELFPAY ==
--- OUTSIDE RECORDS SUMMARY | 2025-05-21 14:00 | XMS_ITS | Encounter Summary ---
Author Organization [facility] Address [address] [place] [address] Care Team Providers Care Place Change Roof Bolter Name Role Phone Jere Sales MD Unavailable [phone] Calin Gotti DO Unavailable [phone] Jose Antonio Meyers MD Primary Care Provider [phone] Dawit Lorenz DO Unavailable [phone] Source Comments In the event this information is protected by the Federal Confidentiality of Alcohol and Drug AbusePatient Records regulations: The Federal rules restrict any use of the information to criminally investigate or prosecute any alcohol or drug abuse patient.[facility] Reason for Visit * ReasonCommentsCardiology Follow Up Encounter Details DateTypeDepartmentCare Team (Latest Contact Info)Uzvogphftfn34/05/2025 2:00 PM ESTOffice Visit Cardiology [address] [place] [address] [place] [address] [facility] [address] [place], [place] [id number] Extremity cyanosis (Primary Dx) Social History Tobacco UseTypesPacks/DayYears UsedDateSmoking Tobacco: NeverSmokeless Tobacco: NeverAlcohol UseStandard Drinks/WeekCommentsYes0 (1 standard drink = 0.6 oz pure alcohol)socially, no drink since HC UtilitiesAnswerDate RecordedIn the past 12 months has the electric, gas, oil, or water [employer] threatened to shut off services in your [...] RecordedNational Score (1-100), lower number is lower voea815212/11/2023State Score (1-10), lower number is lower vxea315ata from: https://www.neighborhoodatlas.medicine.[facility].edu/. Last address used for dhwtkvtcxsp[address]12/11/2023Sex and Gender InformationValueDate Recorded Sex Assigned at CcpkeAodb68/24/2025 12:44 PM EDTLegal ZfaFrwh2712/05/2020 12:24 PM EDTGender SuhbedzcGkif76/24/2025 12:44 PM EDTSexual OrientationNot on file documented as of this encounter Last Filed Vital Signs Vital SignReadingTime TakenCommentsBlood Bpduoivt550/8405/21/2025 2:02 PM EST Wpzud890205/21/2025 2:02 PM ESTTemperature--Respiratory Rate--Oxygen Saturation-- Inhaled Oxygen Concentration--Cakkwq47.7 kg (178 lb)05/21/2025 2:02 PM ESTHeight --Body Mass Index24.14107/12/2024 11:02 AM ESTdocumented in this encounter Functional Status * Are you deaf or do you have serious difficulty hearing?AnswerDate of NgdoklcatfKokfdxMu41/11/2024 4:30 PM Sheri Guo RN * Are you blind or do you have serious difficulty seeing, even when wearing glasses?AnswerDate of AzzuyczjdoZdvrmmIh63/11/2024 4:30 PM Sheri Guo RN * Do you have serious difficulty walking or climbing stairs?AnswerDate of UbicxglffzFahexfNf94/11/2024 4:30 PM Sheri Guo RN * Do you have difficulty dressing or bathing?AnswerDate of AssessmentAuthorNo 12/26/2023 4:30 PM Sheri Guo RN * Because of a physical, mental, or emotional condition, do you have difficulty doing errands alone such as visiting a doctor's office or shopping?AnswerDate of SzciuqbejhKzhmolSq51/11/2024 4:30 PM Sheri Guo RN documented as of this encounter Mental Status * Because of a physical, mental, or emotional condition, do you have serious difficulty concentrating, remembering, or making decisions?AnswerEntry Date IzkzzkGc76/11/2024 4:30 PM Sheri Guo RN documented in this encounter Progress Notes * Nemesio Clemente MD - 05/21/2025 2:09 PM EST Images from the original note were not included. Heart, Vascular and Thoracic [place] April Baltazar Department of Cardiovascular Medicine SECTION OF INTERVENTIONAL CARDIOLOGY OUTPATIENT VISIT DATE 05/21/2025 OUTPATIENT VISIT TYPE Established PRIMARY CARE PHYSICIAN: Jose Antonio Meyers [address] [place] [address] REFERRING PHYSICIAN: No referring provider defined for this encounter. Recording using [employer] software for draft documentation of the visit was discussed with the patient/authorized inside account representative; all questions welcomed and answered. Patient/authorized inside account representative agreed to proceed HISTORY OF PRESENT ILLNESS: Prior Visit 11/20/2024: The patient is a 74-year-old male with [...] metolazone 5 mg and torsemide 100 mg. Current Visit 05/21/2025: The patient experienced marked relief in his symptoms since paracentesis of the abdominal compartment. He notes he still has lower extremity bluish discoloration but no open wounds or ulcers. He denies any other symptoms currently. PAST MEDICAL HISTORY Diagnosis Date GERD (gastroesophageal [...] 10 mg by mouth once daily. calcium xxv-enm-P2-Zn-helicopter specialist-kian 250 mg-40 mg- 125 unit-3.75mg tab [...] disorders, and recent psychosocial stressors PHYSICAL EXAMINATION: 05/21/25 1402 BP: 126/84 BP Site: Left Arm BP Position: Sitting BP Cuff Size: Regular Adult Pulse: 99 Weight: 80.7 kg (178 lb) General: Alert & oriented, no acute distress. [...] MEDICINE TESTING: Labs: Cr 1.38, Hgb 12s Echocardiogram: CONCLUSIONS: - Exam indication: Lower extremity cyanosis; Fluid retention; History of pleural effusions - The left ventricle is normal in size. Left ventricular systolic function is normal. EF = 52 ?? 5% (2D biplane) - The right ventricle is normal in size. Right ventricular systolic function is normal. - Estimated right atrial pressure is 15 mmHg based on IVC assessment. - Exam was compared with the prior CC echocardiographic exam performed on 03/26/2024 ([facility]). HAL/PVR RABI 1.36 LABI 1.30 Venous Insufficiency Duplex: Negative for deep or superficial venous reflux and DVT bilaterally Last ECHO Result Conclusion ECHO Collected: 03/26/2024 [...] MD on Mar 21 2024 4:33PM EST I have personally reviewed the Electrocardiogram, Laboratory Testing, Echocardiogram, KAUSHAL/PVR, Venous Insufficiency Duplex, and CT Chest Scan. IMPRESSION / PLAN AND RECOMMENDATIONS:: Mr. Harris [...] mg. No evidence of pulmonary involvement on auscultation at prior visit. The patient's had abdominal paracentesis for ascit es now and has experienced relief in symptoms. His echocardiogram remained stable without changes in ventricular or valvular function. Furthermore there is no evidence of peripheral arterial disease or venous insufficiency on duplex. I believe most of his symptoms are related to portal hypertensionand as such should be evaluated further with hepatology. His lower extremity cyanosis is likely a sign of small vessel disease that can be managed medically at this time. -Heart healthy diet counseling performed -age and risk appropriate malignancy screening per pcp -smoking cessation counseling performed for 3-10 minutes -if patient has recurrent or worsening symptoms, patient is instructed to come to the ED or call 911 -patient understands and agrees with the plan CONTACT INFORMATION: Nemesio Clemente M.D. Section of Interventional Cardiology & Endovascular Interventions April Baltazar Department of Cardiovascular Medicine Heart, Vascular and Thoracic [place] [facility] Office Office Pager [phone] documented in this encounter Plan of Treatment DateTypeDepartmentCare Team (Latest Contact Info)Rhjiwakhvlj97/16/2026 10:05 AM ESTOffice Visit Gastroenterology [address] [address] Luis Valentine MD [address] [place] [address] Follow Up08/06/2025 1:30 PM ESTOffice [place] [address] [address] [place], [place] [phone] [place] [address] [place] [address] Follow-updocumented as of this encounter Goals GoalPatient Goal TypeAssociated ProblemsRecent ProgressPatient-Stated?Author Blood Pressure < 130/80 Blood Sjqvbpaf048/84(05/21/2025 2:02 PM EST)Sung Mosley MD documented as of this encounter Visit Diagnoses Diagnosis Extremity cyanosis- Primary Other peripheral vascular disease documented in this encounter Care Teams Team MemberRelationshipSpecialtyStart [place] [address] [place] [address] PCP - GeneralFamily Medicine12/29/23 Jere Sales MD [address] [address] ReferringGastroenterology12/05/20 Calin Gotti DO [address] [place] [address] Internal Medicine10/16/23 Dawit Lorenz DO [address] [place] [address] Internal Xonsrdbq51/31/25documented as of this encounter
--- OUTSIDE RECORDS SUMMARY | 2025-06-03 10:07 | XMS_ITS | Clinical Summary ---
Author Organization [facility] Address [address] [place] [address] Care Team Providers Care Piercing Specialist Name Role Phone Dawit Lorenz DO Primary Care Provider [phone] Dawit Lorenz DO Unavailable [phone] Karthik Calloway MD Unavailable Unavail able Allergies Active AllergyReactionsCriticalityNoted DateCommentsOxycodone-AcetaminophenOther (See Comments)2016 Urinary retention Hallucinations TramadolShortness Of DvjtwmVhxe38/10/2015 Medications MedicationSigDispense QuantityRefillsLast FilledStart DateEnd DateStatus omeprazole [...] mouth every morning .Active vit A-vit C-vit B-ljbi-qzobwn 7160-699-100 eonp-gn-wpej Tab Take 1 tablet by mouth every [...] g 5Active Active Problems ProblemNoted DateDiagnosed DateUrinary xuphroifr04/11/2017 Assessment & Plan (06/27/2016 12:19 PM EST): [...] for , 07/05/16 @ 130pm at our [facility] office. S/P total knee wzmrowfcbnzy70/09/1745Oxojjzrdutlghz71/09/2017Primary osteoarthritis of left knee08/02/2015Retention of urine08/25/2014cute blood loss nelgct7508/24/20148792Msjatiymrcsu52/10/2015Osteoarthritis of left knee08/23/2014 Assessment & Plan (08/23/2014 1:29 PM EDT): Postoperative day of surgery left total knee arthroplasty. Enteric coated aspirin--deep venous thrombosis prophylaxis per primary surgical service. Analgesia: Percocet + IV hydromorphone as needed for breakthrough pain. Other and unspecified sylwkbtgbeiwrx10/09/2015 Assessment & Plan (08/23/2014 1:30 PM EDT): Hyperlipidemia-controlled on statin--continue postop. Rssrcbb4208/23/2014 Overview (03/17/2015): Updated per ICD10 Conversion Assessment [...] InformationValueDate RecordedSex Assigned at BirthNot on fileLegal ClfMmnz6802/09/2014 1:03 PM EDTGender IdentityNot on file Sexual OrientationNot on file Last Filed Vital Signs Vital SignReadingTime TakenCommentsBlood Sparqwjz378/76006/29/2016 7:30 AM EST Wtmke9654 7:30 AM LQXZzuqwpvnwme79.9 ??C (98.4 ??F)06/29/2016 7:30 AM ESTRespiratory Ceaw169006/29/2016 7:30 AM ESTOxygen Bztuicaleg34%06/29/2016 7:30 AM ESTInhaled Oxygen Concentration--Xpadhd40.8 kg (220 lb)02/11/2023 3:16 PM EDT Zbrkmv374.9 cm (6')02/11/2023 3:16 PM EDTBody Mass Index29.8402/11/2023 3:16 PM EDT Plan of Treatment Health MaintenanceDue DateLast DoneCommentsCT Sjzcysosfbwj1950Colonoscopy 1Colorectal Cancer Screening/Yljgscefub1951Fecal DNA1950 Fecal occult blood test (FOBT,FIT)1PSA Level1951Medicare Wellness Visit4Depression Screening/Follow-Up (PHQ-2/9)1963Hepatitis C Lvbojxavb40/27/1969Flexible vyjfwzrlcxzie72/27/2001RSV Vaccines (1 - Risk 50-74 years 1-dose series)2001Falls Risk Merlmejfbx18/27/2016 Tetanus/Diphtheria/Pertussis (1 - Tdap), 06/04/2018Zoster Vaccines (2 of 2)COVID-19 Vaccine (4 - season) , 09/13/2020, 08/22/2020Influenza Vaccine (#1)2025 05/09/2020, 05/09/2020Pneumococcal Vaccine: 50+ BjpipMsxfqikcc18/20/2018, 11/26/2016HIB VaccinesAged OutNo longer eligible based on [...] 1 X 40 [place] [employer] Single - [id number] Implanted:Qty: 2 on 08/23/2014 [facility]: WasiYrfigq23/31/182956-8459-347-27 / / [id number] Short Cemented Persona - [id number] Implanted:Qty: 1 on 08/23/2014 by Karthik Calloway MD at [facility]09/23/2017000300-2193-573-96 / / [id number] Sz F Tib 5deg Nonpor Lt Persona - [id number] Implanted:Qty: 1 on 08/23/2014 by Karthik [facility] MD at [id number] / / [id number] Sz9 Lt Nrw Ps Cmt Ccr Persona - [id number] Implanted:Qty: 1 on 08/23/2014 by [facility] at [id number] / / [id number] 32mm All Poly Persona - [id number] Implanted:Qty: 1 on 08/23/2014 by [facility] at [id number] / / [id number] Surf Ef 6-9 14mm Lt Ps Vivacit-E Persona - [id number] Implanted:Qty: 1 on 08/23/2014 by [facility]/2017778518-3452-638-59 / / [id number] Hv With Gentamicin Cement Implanted:Qty: 2 on 06/25/2016 [facility]: AxyqMSYVJFXFK81/31/[id number] / / [id number] Sz F Tib 5deg Nonpor Rt Persona - [id number] Implanted:Qty: 1 on 06/25/2016 by [facility]027748-4919-878-02 / / [id number] Sz9 Rt Nrw Ps Cmt Ccr Persona - [id number] Implanted:Qty: 1 on 06/25/2016 by [id number] / / [id number] Short Cemented Persona - [id number] Implanted:Qty: 1 on 06/25/2016 by [facility]127463-4952-249-86 / / [id number] 32mm All Poly Vivacit-E - [id number] Implanted:Qty: 1 on 06/25/2016 by [facility]141324-1063-633-23 / / [id number] Surf 14mm 6-9ef Rt Cps Ve Persona - [id number] Implanted:Qty: 1 on 06/25/2016 by [id number] / / [id number]dkhbjIyikpm IdentifierSpomerene hospitalf Expiration DateModel / Serial / LotHeaded Screw Explanted:Qty: 4 on 08/23/2014 by [facility]: SrudLcbxas56/28/35160828-26 / / [id number] Female Hex Screw Explanted:Qty: 1 on 08/23/2014 by [facility]: PuzzThpvto40/31/598393-0378-739-34 / / [id number] Screw Explanted:Qty: 1 on 08/23/2014 by [facility]: LjtdJhbaye48/31/33190668-07-18 / / Insurance * Guarantor: Bryan Harriscoprosper TypeRelation to PatientDate of BirthPhone Billing AddressPersonal/FzlhxuBcjg1950 [id number] (Home) [address] [place] [address] [place] [address] Advance Directives For more information, please contact: [phone] * Full Code (Latest Code Status on File) Date ActivatedDate InactivatedComments06/25/2016 1:54 PM06/29/2016 3:41 PM * Full Code Date ActivatedDate InactivatedComments08/23/2014 6:45 AM08/25/2014 7:58 PM Care Teams Team MemberRelationshipSpecialtyStart DateEnd Date Dawit Lorenz DO [address] [place] [address] PCP - GeneralInternal Medicine06/29/14 Dawit Lorenz DO [address] [place] [address] Internal Medicine06/29/14 Karthik Calloway MD [address] [place] [address] Consulting PhysicianOrthopedic Surgery01/28/17
--- OUTSIDE RECORDS SUMMARY | 2025-06-03 10:07 | XMS_ITS | Clinical Summary ---
Author Organization [facility] Address [address] [place] [address] Care Team Providers Care Clipper And Turner Name Role Phone Dawit Lorenz Primary Care Provider [phone] Allergies Active AllergyReactionsCriticalityNoted DateCommentsOxycodone-Acetaminophen Kyqfbjk2603/13/2016 Other Reaction(s): Other (See Comments) Urinary retention Hallucinations TramadolShortness of breath,VkgkydhQvus42/10/2015 Other Reaction(s): Mental Status Change Medications MedicationSigDispense [...] the morning and 100 mg before bedtime.5Active tobramycin-dexAMETHasone (Tobradex) ophthalmic suspension Indications:Chalazion of left lower eyelidAdminister 1 drop into the left eye in the morning and 1 drop at noon and 1 drop in the evening and1 drop before bedtime. Do all this for 21 days. 5 mL 5Active Active Problems ProblemNoted DateDiagnosed DateChalazion of left lower uyehow2505/19/2025Early dry stage nonexudative age-related macular degeneration of both eyes08/12/2024Dry eyes08/12/2024lepharitis of upper and lower eyelids of both eyes08/12/2024 Bilateral posterior capsular uxeoknhvctqeb98/26/2025 Resolved Problems ProblemNoted DateDiagnosed DateResolved DateChalazion of left upper eyelid Encounters DateTypeDepartmentCare WlhvXqdvgdlcdew54/03/2025 2:15 PM ESTOffice Visit [facility] [address] [place] [address] Arley Hamilton, DO Chalazion of left lower eyelid (Primary Dx)05/19/2025amboo flowsheet [facility] [address] [place] [address] Arley Hamilton, DO 05/19/20257550Npdysp65/11/2025 1:45 PM ESTOffice Visit [facility] [address] [place] [address] Uzair Lubin DPM 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, stage 2 ([facility]) (Primary Dx); Cellulitis of left foot; Pain in toe of left foot; Difficulty nkncegi8904/27/2025amboo flowsheet [facility] [address] [place] [address] Uzair Lubin DPM 04/27/20258770Cynxid27/29/2025 4:15 PM EDTProcedure Visit [facility] [address] [place] [address] Uzair Lubin DPM Dermatophytosis of nail (Primary Dx); Dystrophic nail; Pain around toenail, right foot; Pain around toenail, left foot04/14/2025amboo flowsheet [facility] [address] [place] [address] Uzair Lubin DPM 04/14/20252851Lrsaoq88/09/2025 11:15 AM EDTOffice Visit [facility] [address] [place] [address] Uzair Lubin DPM 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, stage 2 ([facility]) (Primary Dx); Cellulitis of left foot; Pain in toe of left foot; Difficulty wxtrtwc7603/25/2025amboo flowsheet [facility] [address] [place] [address] Uzair Lubin DPM 03/25/20257987Dzlaex83/08/8986Pgjqqd91/01/2025 10:15 AM EDTOffice Visit [facility] [address] [place] [address] Uzair Lubin DPM 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, stage 2 ([facility]) (Primary Dx); Cellulitis of left foot; Pain in toe of left foot; Difficulty npxdayt3903/17/2025amboo flowsheet [facility] [address] [place] [address] Uzair Lubin DPM 03/17/20252458Yxhoea24/30/6564Aogzbd51/26/2025 9:50 AM EDTAncillary Procedure [facility] [address] [place] [address] 03/12/2025 8:45 AM EDTOffice Visit [facility] [address] [place] [address] Uzair Lubin, DPM 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, stage 2 ([facility]-HCC) (Primary Dx); Cellulitis of left foot; Pain in toe of left foot; Difficulty cxbbxxg1503/12/2025amboo flowsheet [facility] [address] [place] [address] Uzair Lubin DPM 03/12/20259738Kqtjkc27/25/2025Travelfrom Last 3 Months Immunizations ImmunizationAdministration DatesNext DueInfluenza, High Dose Seasonal, Preservative Free05/27/2024Influenza, trivalent, adisutxpls56/23/2020 Pneumococcal Conjugate PCV 13011/26/2016Pneumococcal Polysaccharide PPSV23 02/03/2018RSV, recombinant, protein subunit RSVpreF, adjuvant reconstitu, 120mcg/0.5mL, PF (Arexvy)05/27/2024Td (adult), 5 Lf tetanus toxoid, preservative free, eybgjhjz89/16/2019,06/04/2018Tdap107/28/2023Zoster, Obqxumudizz72/16/2019 Family History Medical HistoryRelationNameCommentsMelanomaNeg Hx Social History Tobacco UseTypesPacks/DayYears UsedDateSmoking Tobacco: NeverSmokeless Tobacco: Never Tobacco Cessation:Counseling Given: Not Answered Sex and Gender InformationValueDate RecordedSex Assigned at BirthNot on file Legal FmwYklk2108/29/2022 7:25 PM EDTGender IdentityNot on fileSexual Orientation Not on file Last Filed Vital Signs Vital SignReadingTime TakenCommentsBlood Pressure--Pulse--Temperature-- Respiratory Rate--Oxygen Saturation--Inhaled Oxygen Concentration--Ljkhtu93.8 kg (187 lb)04/27/2025 2:01 PM JJQPoaess649.9 cm (6')04/27/2025 2:01 PM ESTBody Mass Index25.36106/27/2024 2:01 PM EST Plan of Treatment DateTypeDepartmentCare Team (Latest Contact Info)Iaiyrjgbvgl15/19/2026 1:15 PM ESTOffice Visit [facility] [address] [place] [address] Uzair Lubin DPM [address] [place], [place] [address] 08/16/2025 1:30 PM ESTOffice Visit [facility] [address] [place] [address] Arley Hamilton DO [address] [place] [address] 08/31/2025 1:05 PM EDTOffice Visit [facility] [address] [place] [address] Bianca Bynum MD [address] [place] [address] Health MaintenanceDue DateLast DoneCommentsCT Gniiiaqilyrr1950FIT-DNA 1950FIT1950FOBT03/13/19518406Zfqlnwzcdnqiw1951OVID-19 Vaccine ( season), 09/13/2020, 08/22/2020olonoscopy , 04/28/2024, 4Colorectal Cancer Screening 4Pneumococcal Vaccine: 65+ GfzjcOjhbgivhy92/20/2018, 11/26/2016 Influenza BfbjocaMavaclgoz99/24/2025, 05/27/2024, 05/09/2020 Procedures Procedure NamePriorityDate/TimeAssociated DiagnosisCommentsXR FOOT 3+ VIEWS LEFT Auyvass4203/12/2025 9:49 AM EDT Pressure injury of toe [...] 1st MTP joint. Authorizing ProviderResult TypeResult StatusSteven Yanira Lubin DPMIMG XR PROCEDURES Final Result from Last [address] [place] [address] Care Teams Team MemberRelationshipSpecialtyStart DateEnd Date Dawit Lorenz DO [address] [place] [address] PCP - GeneralInternal Medicine03/12/25
--- OUTSIDE RECORDS SUMMARY | 2025-06-03 10:07 | XMS_ITS | Encounter Summary ---
Author Organization [facility] Address [address] [place] [address] Care Team Providers Care Airplane Pilot Helper Name Role Phone Jere Sales MD Unavailable [phone] Calin Gotti DO Unavailable [phone] Jose Antonio Meyers MD Primary Care Provider [phone] Dawit Lorenz DO Unavailable [phone] Source Comments In the event this information is protected by the Federal Confidentiality of Alcohol and Drug AbusePatient Records regulations: The Federal rules restrict any use of the information to criminally investigate or prosecute any alcohol or drug abuse patient.[facility] Reason for Referral * Consult, Test, Treat (Routine) - New RequestSpecialtyDiagnoses / Procedures Referred By ContactReferred To ContactCardiology Diagnoses History of pericarditis Procedures OFFICE/OUTPATIENT NEW HIGH MDM 60 MINUTES Luis Hills MD [facility] [place] [address] Phone: tel: fax: Referral IDStatusReasonGregory DateExpiration DateVisits RequestedVisits [id number] Request PCP Requested Referral * Outpatient Procedure (Routine) - New RequestSpecialtyDiagnoses / Procedures Referred By ContactReferred To [facility] [place] Diagnoses History of pericarditis Procedures ECHO ECHO TTHRC R-T 2D W/WOM-MODE COMPL SPEC&COLR D Luis Hills MD [address] [place] [address] Phone: tel: fax: [facility] [place] [phone] Referral IDStatusReasonGregory DateExpiration DateVisits RequestedVisits [id number] Request Auto-Generated Referral Reason for Visit * ReasonCommentsResults Encounter Details DateTypeDepartmentCare Team (Latest Contact Info)Vfsojjfkczy82/03/2025Telephone Gastroenterology [address] [place] [phone] Luis Hills MD [address] [place] [address] Results Social History Tobacco UseTypesPacks/DayYears UsedDateSmoking Tobacco: NeverSmokeless Tobacco: NeverAlcohol UseStandard Drinks/WeekCommentsYes0 (1 standard drink = 0.6 oz pure alcohol)socially, no drink since HC UtilitiesAnswerDate RecordedIn the past 12 months has the electric, gas, oil, or water [employer] threatened to shut off services in your [...] steady place to sleep or slept in solonelter (including now)?No11/21/2023rea Deprivation IndexAnswerDate RecordedNational Score (1-100), lower number is lower hwby283112/11/2023State Score (1-10), lower number is lower cyoj819ata from: https://www.neighborhoodatlas.[facility].edu/. Last address used for qpogsnvraav[address]12/11/2023Sex and Gender InformationValueDate Recorded Sex Assigned at TnoxuZenq90/24/2025 12:44 PM EDTLegal HeoSdoi4712/05/2020 12:24 PM EDTGender XkhmktdoBdsz03/24/2025 12:44 PM EDTSexual OrientationNot on file documented as of this encounter Functional Status * Are you deaf or do you have serious difficulty hearing?AnswerDate of VpfhnxhjvmBabcbsIp98/11/2024 4:30 PM Sheri Guo RN * Are you blind or do you have serious difficulty seeing, even when wearing glasses?AnswerDate of DnqvycyiplQabtmeIx67/11/2024 4:30 PM Sheri Guo RN * Do you have serious difficulty walking or climbing stairs?AnswerDate of ChmskdkenmFnpsqmQj71/11/2024 4:30 PM Sheri Guo RN * Do you have difficulty dressing or bathing?AnswerDate of AssessmentAuthorNo 12/26/2023 4:30 PM Sheri Guo RN * Because of a physical, mental, or emotional condition, do you have difficulty doing errands alone such as visiting a doctor's office or shopping?AnswerDate of UzoelgxdolElzuxbDh40/11/2024 4:30 PM Sheri Guo RN documented as of this encounter Mental Status * Because of a physical, mental, or emotional condition, do you have serious difficulty concentrating, remembering, or making decisions?AnswerEntry Date VcwgkeKv23/11/2024 4:30 PM Sheri Guo RN documented in this encounter Miscellaneous Notes * Telephone Encounter - Keven Hawkins RN - 05/21/2025 1:43 PM EST Patient updated & scheduling info provided Keven Hawkins RN * Addendum Note - Luis Hills MD - 05/21/2025 12:55 PM ESTAddended by: LUIS HILLS on: 05/21/2025 12:55 PM Modules accepted: Orders * Telephone Encounter - Luis Hills MD - 05/21/2025 12:32 PM EST Keven, Please let him know: Evidence point away from liver disease as a cause for ascites I am glad he got relief from paracentesis the fluid was low SAAG and high in protein pointing to possible heart cause pressures taken during liver biopsy session suggest a possible heart problem liver biopsy suggest excess back-flow from heart 2. He should have new ECHO and consultation with [facility] cardiology (orders placed) Thanks * Telephone Encounter - Keven Hawkins RN - 05/19/2025 8:42 AM EST Pt sent the following mcm: Just following up as you requested during our 05/12/2025 appt. Willie did have labs done when we leftyour office. His abdominal drain was on May 14 with 5.4 liters being removed. This has helped his swallowing issues & breathing considerably. I trust we will hear from you after having received the fluid test results for an appt to know how to proceed. I know you are aware how anxious we are on hopefully finding a cause. Keven Hawkins RN May 19, 2025 8:42 AM documented in this encounter Plan of Treatment DateTypeDepartmentCare Team (Latest Contact Info)Gzgphmrbxww84/16/2026 10:05 AM ESTOffice Visit Gastroenterology [address] [address] Luis Hills MD [address] [place] [address] Follow Up08/06/2025 1:30 PM [place]Office [place] [address] [place] [address] [place] [address] [place] [address] Follow-upNameTypePriorityAssociated DiagnosesOrder ScheduleECHOCardiologyRoutine History of pericarditis 1 Occurrences starting 05/21/2025 until 05/21/2026NameTypePriorityAssociated DiagnosesOrder ScheduleCONSULT TO CARDIOLOGYReferralRoutine History of pericarditis 1 Occurrences starting 05/21/2025 until 05/21/2026documented as of this encounter Goals GoalPatient Goal TypeAssociated ProblemsRecent ProgressPatient-Stated?Author Blood Pressure < 130/80 Blood Rjlzneqc265/84(05/21/2025 2:02 PM EST)Sung Mosley MD documented as of this encounter Visit Diagnoses Diagnosis History of pericarditis- Primary Personal history of other diseases of circulatory system documented in this encounter Care Teams Team MemberRelationshipSpecialtyStart [place] [address] [place] [address] PCP - GeneralFamily Medicine12/29/23 Jere Sales MD [address] [address] ReferringGastroenterology12/05/20 Calin Gotti DO [address] [place] [address] Internal Medicine10/16/23 Dawit Lorenz DO [address] [place] [address] Internal Lkvbabkd05/31/25documented as of this encounter
--- OUTSIDE RECORDS SUMMARY | 2025-06-03 10:08 | XMS_ITS | Clinical Summary ---
Author Organization [employer] [facility] Address [id number] [place] [address] Care Team Providers Care Stripper Machine Operator Name Role Phone Unavailable Primary Care Provider Unavailabl e Social History Tobacco UseTypesPacks/DayYears UsedDateSmoking Tobacco: Never AssessedChildcare AnswerDate EnkzdbtjLchkfpgbtFjaphwd39/12/2019EmploymentAnswerDate Recorded IzyoxzspccQntzwzq26/12/2019Sex and Gender InformationValueDate RecordedSex Assigned at BirthNot on fileLegal UydHueb5101/20/2015 11:57 AM EDTGender Identity Not on fileSexual OrientationNot on file Plan of Treatment Not on file Medical Devices Not on file
--- OUTSIDE RECORDS SUMMARY | 2025-06-03 10:08 | XMS_ITS | Clinical Summary ---
Author Organization [facility] Address [facility] [place] [address] Care Team Providers Care Oil Drilling Engineer Name Role Phone Jere Sales MD Unavailable Calin Gotti DO Unavailable [phone] Jose Antonio Meyers MD Primary Care Provider [phone] Dawit Lorenz DO Unavailable [phone] Allergies Active AllergyReactionsCriticalityNoted DateCommentsAdhesive Tape-Silicones Crplknisjuu95/19/2025 Pt developed petechiae/blood blister/skin tear from EKG stickers. TramadolMental Status LdeagaEzi39/01/2021 Medications MedicationSigDispense QuantityRefillsLast FilledStart DateEnd DateStatus allopurinol (ZYLOPRIM) 300 mg tablet Take 300 mg by mouth once daily.10/21/2020ctive calcium met-ixm-U2-Zn-photocopy operator-kian 250 mg-40 mg- 125 unit-3.75mg tab [...] Take 10 mg by mouth once daily.Active pantoprazole DR (PROTONIX) 40 mg tablet Take 1 tablet by mouth once daily.5Active famotidine (PEPCID) 20 mg tablet Take 20 mg by mouth daily at bedtime.5Active torsemide (DEMADEX) 100 mg tablet Indications:Recurrent pleural effusion on right,AnasarcaTake 0.5 tablets by mouth once daily. 90 tablet /008201/5Active amoxicillin-clavulanate potassium (AUGMENTIN) 875-125 mg per tablet Take 1 tablet by mouth every 12 hours.Active mirabegron (MYRBETRIQ) 50 mg Tb24 once daily.5Active quiNINE 324 mg capsule Indications:Cramp and spasmTake 1 capsule by mouth two times a day. 180 capsule 5Active quiNINE 324 mg capsule Indications:Cramp and spasmTake 1 capsule by mouth two times a day. 180 capsule /Discontinued Active Problems Patient Care Coordination No te [...] characters) 11/20/2023: SURGERY:R VATS Pleural biopsy, R boat outboard engine mechanic and doxycycline pleurodesis, R Pleurx catheter [...] - Controlled with current regimen of Fent FOOD CHECKER, Tylenol 1000 mg q6hrs, oxycodone 5-10 mg [...] clinically stable. ProblemNoted DateDiagnosed DateAtherosclerosis of coronary hiwemo6904/29/2025 Chronic kidney bizdxva4904/29/2025irrhosis of liver04/29/2025Esophageal varices 04/29/2025Nausea & qyxqpong21/13/2025Orthostatic rooenoupsbq74/13/2025Stage 3a chronic kidney uclkarv3901/26/2025bdominal vlxlwic3011/23/2024KI (acute kidney injury)10/15/2024Esophageal tqdtmnfok61/10/2025Lymphocytic rewfsom1405/19/2024Lung pppgey7505/19/20242219Aznrbsmrx87/01/2024hronic cough03/17/2024Interstitial lung kxpylnz4703/17/2024History of roooxusrrlvl08/10/2024Elevated sedimentation rate 12/25/2023Elevated C-reactive protein (CRP)12/25/2023Generalized edema12/20/2023 Primary ewjpszaiwdzw34/05/2024leural effusion, not elsewhere classified 12/20/2023ostoperative pain11/21/2023leural hldsruvv02/05/2024Obesity, Class I, BMI 30-34.9010/25/2023 Resolved Problems ProblemNoted DateDiagnosed DateResolved DateRaynaud's phenomenon without shgsnevr51 Encounters DateTypeDepartmentCare NdjxNkycckhdjkb14/17/2025Telephone Gastroenterology [address] [address] Luis Hills MD Elokju3406/01/2025 Get Medical Advice Gastroenterology [address] [address] Luis Hills MD Stan Moyer 2:00 PM ESTOffice Visit Cardiology [address] [place] [phone] Nemesio Clemente MD Extremity cyanosis (Primary Dx)05/19/2025Telephone Gastroenterology [address] [address] Luis Hills MD Mlcwdtl8305/18/2025Interfaced Data Spray Painting Machine Operator Management [address] [place] [address] Tere Poon MD 05/18/2025 Get Medical Advice Gastroenterology [address] [address] Luis Hills MD Stan Moyer 8:17 AM EST - 05/14/2025 11:59 PM ESTHospital Encounter Gastroenterology [address] [address] Other ascites [R18.8] Discharge Disposition: Home05/14/2025Orders Only Gastroenterology [address] [address] Shreya Salazar APRN.GLASS ENGRAVER Other ascites (Primary Dx)05/12/2025 11:45 AM ESTOffice [place] [address] [place] [address] Jose Antonio Meyers MD Mixed connective tissue disease (HCC) (Primary Dx); Stage 3a chronic kidney disease (HCC); Metabolic encephalopathy; Other ascites; Cramp and spasm05/12/2025 8:25 AM ESTOffice Visit Gastroenterology [address] [address] Luis Hills MD Liver disease (Primary Dx); Other wkjacrb1705/06/2025Interfaced Data Spray Painting Machine Operator Management [address] [place] [address] Tere Poon MD 04/29/2025 11:15 AM ESTAnesthesia Event Gastroenterology [address] [address] Gene Walker MD 04/29/2025 9:43 AM EST - 04/29/2025 11:59 PM ESTHospital Encounter Gastroenterology [address] [address] Patrice Frost MD Esophageal dysphagia [R13.19] Discharge Disposition: Home04/29/20254055Motrji38/31/2025 Patient Msg [facility] [place] [address] [place] [address] Provider, [facility] Primary Care Vhufhlla16/31/2025Patient Outreach [facility] [place] [address] [place] [address] Courtney Benedict Population Health Navigation Outreach (QAI Vito Attribution list)03/29/2025 12:55 PM EDT - 03/29/2025 11:59 PM EDTHospital Encounter Radiology [address] [place] [address] [place] [address] Pleural effusion, not elsewhere classified [J90] Discharge Disposition: Home03/24/2025 11:30 AM EDTNurse Visit Gastroenterology [address] [address] 2, Nurse Gi Lab Esophageal /08/2025 9:38 AM EDT - 03/24/2025 11:59 PM EDTHospital Encounter Gastroenterology [address] [place] [phone] Aure Giraldo MD Esophageal dysmotility [K22.4] Discharge Disposition: Home03/24/2025Results Follow-Up Gastroenterology [address] [address] Sue Terrell MD 03/18/2025Orders Only Gastroenterology [address] [address] Sue Terrell MD Esophageal dysphagia (Primary Dx)03/17/2025 Patient Ilg Gastroenterology [address] [place] [phone] Provider, [facility] EGD Prep Togtaahdfuae94/01/2025 Preprocedure Call Gastroenterology [address] [phone] Evans King MA 03/17/2025 Patient Msg Gastroenterology [address] [address] Aure Giraldo MD upper endoscopy 4:30 PM EDTOffice Visit Gastroenterology [address] [address] Sue Terrell MD Esophageal dysmotility (Primary Dx); Esophageal mygcwewkn85/23/2025 1:15 PM EDTOffice [place] [address] [place] [address] Jose Antonio Meyers MD Mixed connective tissue disease (HCC) (Primary Dx); Bruising; Primary hypertension; Stage 3a chronic kidney disease (HCC); Peripheral edema; Recurrent pleural effusion on right; Trblexnv91/19/9864Lwvgqg09/18/2025Telephone Thoracic Clinic [address] [place] [address] Ronaldo Ramos MD, PhD Faxed Discharge Home Care Orderfrom Last 3 Months Immunizations ImmunizationAdministration DatesNext DueCOD- original vaccine, age 12+ yr, monovalent (PFIZER-BIONTECH - PURPLE TOP)09/13/2020,08/22/2020,08/15/2020 influenza (HD-IIV3) vaccine, age 65+ yr, high dose, trivalent, PF (FLUZONE HIGH-DOSE)05/27/2024influenza (IIV3) vaccine, age 6 mo - 64 yr, trivalent (AFLURIA, FLULAVAL, FLUVIRIN, FLUZONE)03/10/2025influenza (IIV3) vaccine, trivalent (AFLURIA, FLULAVAL, FLUVIRIN, FLUZONE)05/27/2024influenza (aIIV3) vaccine, age 65+ yr, trivalent, PF (FLUAD)05/09/2020influenza vaccine, unspecified kosadmcxqxc83/23/2020pneumococcal conjugate (PCV13) vaccine, 13 valent (PREVNAR 13)11/26/2016pneumococcal polysaccharide (PPV23) vaccine, 23 valent (PNEUMOVAX 23)02/03/2018respiratory syncytial virus (RSV) vaccine, adjuvanted (AREXVY)05/27/2024tetanus diphtheria (Td) vaccine, age 7+ yr, 5 Lf tetanus, PF (TENIVAC)08/30/2018,06/04/2018tetanus diphtheria pertussis (Tdap) vaccine, age 7+ yr [...] RecordedNational Score (1-100), lower number is lower djwb472712/11/2023State Score (1-10), lower number is lower sodg829ata from: https://www.neighborhoodatlas.medicine.[facility].edu/. Last address used for bzkvybaaqla[address]12/11/2023Sex and Gender InformationValueDate Recorded Sex Assigned at DcjeiNtcj29/24/2025 12:44 PM EDTLegal OmuRhmi6612/05/2020 12:24 PM EDTGender ZybxktkfEiig36/24/2025 12:44 PM EDTSexual OrientationNot on file Last Filed Vital Signs Vital SignReadingTime TakenCommentsBlood Iqnrloyd686/8412/10/2024 2:02 PM EST Xoyrq471605/21/2025 2:02 PM BRLHrlwmmywjbp93.2 ??C (97.2 ??F)05/14/2025 8:24 AM ESTRespiratory Zrpz593607/14/2024 10:26 AM ESTOxygen Nehpragdqp41%05/14/2025 10:26 AM ESTInhaled Oxygen Concentration--Tbrafo13.7 kg (178 lb)05/21/2025 2:02 PM WFSTrgogy641.9 cm (6')05/12/2025 11:02 AM ESTBody Mass Index24.14107/12/2024 11:02 AM EST Plan of Treatment DateTypeDepartmentCare Team (Latest Contact Info)Wjfsklhifmw62/16/2026 10:05 AM ESTOffice Visit Gastroenterology [address] [address] Luis Hills MD [address] [place], [place] [phone] Follow Up08/06/2025 1:30 PM [place] [address] [facility] [place] [address] [place] [address] [place] [address] Follow-upHealth MaintenanceDue DateLast DoneCommentsAnxiety Qskbdhivm39/27/1969 Depression Mesvryqdq09/27/1969Hepatitis A Vaccine (1 of 2 - Risk 2-dose series) 1970CT Iwgdgmptjmme32/27/1996Cologuard (FIT-DNA)1996Fecal Occult Blood03/13/19962343Hounylkgbpqrf68/27/1996Hepatitis B Vaccine (1 of 3 - Risk 3-dose series)2011dvance Directive Onaairpsfq15/01/2025Medicare Advantage Annual Wellness Visit06/17/2024ovid-19 Vaccine ( season)2025 05/10/2021, 09/13/2020, 08/22/2020, Additional history existsColonoscopy 511/05/2024, 04/28/2024olorectal Cancer Kdfqhabcl09/12/2025LDL Prempokcbij42Hemoglobin/Strrkmdpvg56/11/274644/04/2025, 01/08/2025, 11/12/2024, Additional history existsAnnual PCP Team Chronic Disease VisitSerum Zrcrxrazmg77, 03/26/2025, 03/05/2025, Additional history existsDiabetes Opkecempi08, 03/26/2025, 03/05/2025, Additional history existsLipid Xswgfbnof55/02/2029 05/18/2024, 12/20/2023TaP,Tdap,Td Vaccine (2 - Td or Tdap), 08/30/2018, 06/04/2018Pneumococcal Vaccine: 50+Ymjrqesqw90/20/2018, 11/26/2016 Shingrix WjowbraQjlttyrljmwe66/16/2019RSV GyaqusrCmijmfpir25/11/2024Hepatitis C PrjpyrcswQeuapyxnn92/25/2025, 11/17/2024, 11/17/2024Influenza VaccineCompleted 03/10/2025, 05/27/2024, 05/27/2024, Additional history exists Goals GoalPatient Goal TypeAssociated ProblemsRecent ProgressPatient-Stated?Author Blood Pressure < 130/80 Blood Knxtcgug845/84(05/21/2025 2:02 PM EST)Sung Mosley MD Medical Devices ImplantedTypeAreaManufacturerDevice IdentifierShelf Expiration DateModel / Serial / LotCatheterCatheterRight: ChestDescription:Pleur-x catheterJoint - Knee Joint - KneeBilateral: Bone - KneeScrewScrewRight: Bone - Wrist Procedures Procedure NamePriorityDate/TimeAssociated DiagnosisCommentsABDOM PARACENTESIS DX/THER W IMAGING GPULSUUZBcarewb95/28/2025 10:18 AM EST Other ascites BACTERIAL CULTURE AND GRAM STAIN, STERILE BODY LUIRFZmzvgmb82/28/2025 8:38 AM EST Other ascites BACTERIAL CULTURE, TISSUE AND WOUND, WIZHSIRCOSpczzln98/28/2025 8:38 AM EST Other ascites BF MANUAL GFEYFtlpwie35/28/2025 8:38 AM EST Other ascites CYTOLOGY NON-SVTHzvhghe82/28/2025 8:38 AM EST Other ascites PROTEIN LMVKwftujn33/28/2025 8:38 AM EST Other ascites LIPASE WTABhgqjsp88/28/2025 8:38 AM EST Other ascites BODY FLUID CELL LNKUGGsjhkbl30/28/2025 8:38 AM EST Other ascites AMYLASE RCNZhtniqs94/28/2025 8:38 AM EST Other ascites ALBUMIN YDKYahdtzi04/28/2025 8:38 AM EST Other ascites US PARACENTESIS (POC) DDI USE WTVHZmwuujd37/28/2025 8:25 AM ESTPROTHROMBIN TIME Fitgopx5105/12/2025 9:38 AM EST Liver disease COMPREHENSIVE METABOLIC QFWQZDgibgwf84/26/2025 9:38 AM EST Liver disease AMMONIA EHTMapauyf27/26/2025 9:38 AM EST Liver disease EGD - THERAPEUTIC, EUS, OR TUBE VMTSJYITWPEHWCzbwulc64/13/2025 11:03 AM EST Esophageal dysphagia Esophageal dysmotility PT ED DIGESTIVE NTCKSHL6504/18/2025 PT ED PATIENT BKKPVLLTDVK89/02/2025 XR CHEST 2V FRONTAL/IBJQqunsaa04/13/2025 1:09 PM EDT Pleural effusion, not elsewhere classified PLATELET AGGREGATION UKFXZVIccaiuq84/10/2025 10:42 AM EDT Bruising EXTRA LAV MAN COAG FKQBThrvivh86/10/2025 10:42 AM EDT Bruising PLATELET QBJZQKIRRQBAivzmbg81/10/2025 10:42 AM EDT Bruising PLATELET AGGREGATION EKCVWEcwwztu88/10/2025 10:42 AM EDT Bruising BASIC METABOLIC VIHPWWbmgsqk90/10/2025 10:42 AM EDT Stage 3a chronic kidney disease (HCC) EGD - THERAPEUTIC, EUS, OR TUBE IODSQNQAKSIJCQzffcve88/08/2025 11:48 AM EDT Esophageal dysmotility MANOMETRY GSNNXGXGHKGuoefqz13/08/2025 Esophageal dysphagia PT ED DIGESTIVE VZEOMXL3003/17/2025 COMPREHENSIVE METABOLIC SIISUNtircry03/19/2025 11:14 AM EDT Generalized edema Pleural effusion COMPLETE BLOOD UEAHYPcklduy95/11/2025 11:00 AM EDT Anemia, unspecified type HEPATITIS C ANTIBODY IA WITH GQUUYZUTOJYNEpyfyoe79/25/2025 12:33 PM EDT Elevated alkaline phosphatase level CHOLESTEROL OXIBswbpzl22/02/2024 12:52 PM EST Pleural effusion COLONOSCOPY (THERAPEUTIC)Faszpen9904/28/2024 11:16 AM EST from Last 3 Months or Most Recently Relevant to Health Maintenance Results * ABDOM PARACENTESIS DX/THER W IMAGING GUIDANCE (05/14/2025 10:18 AM EST) Anatomical RegionLateralityModalityOther Narrative 05/14/2025 10:18 AM EST Name: Bryan Harris Patient presents for a Paracentesis. Indication for Procedure: Ascites INFORMED CONSENT Bryan Harris Medical Record: [id number] Procedure: Paracentesis The risks, benefits and anticipated outcomes of the procedure, the risks and benefits of the alternatives to the procedure and the roles and tasks of the personnel to be involved were discussed with the patient and the patient consents to the procedure and agrees to proceed. I have verified that consent has been obtained for this procedure. Shreya Salazar APRN.CNP May 14, 2025 ??10:17 AM Dept of GASTROENTEROLOGY UNIVERSAL PROTOCOL / SAFETY CHECKLIST Procedure to be performed: Paracentesis Sign in Communication: Completed Time Out: ??Team Confirms the Correct Patient, Correct Procedure, Correct Site and Site Marking, Correct Position (if applicable), Prep and Dry Time (if applicable). ??Time: ??See Nursing Documentation Affirmation of Time Out: YES Sign Out Discussion: Completed Shreya Salazar APRN.CNP Procedure performed by Shreya Salazar APRN.CNP Medication: 2% Lidocaine 10cc The patient was placed in the supine position. A pocket of fluid suitable for paracentesis was marked in the left abdomen under ultrasound guidance. The skin and subcutaneous tissue was anesthetized with local anesthetic. A 15 guage Gold Needle was inserted into the abdomen and 5.1 liters + 20mL for cultures were removed. The fluid was sent to the Lab for analysis. There were no immediate complications associated with the procedure. Albumin was given due to >5 liters of ascites was drained or per provider discretion. Pt received 37.5 grams of albumin. Shreya Salazar APRN.CNP Authorizing ProviderResult TypeResult StatusJeesperanza Salazar APRN.CNP DIGESTIVE DISEASEFinal Result * (ABNORMAL) MANUAL DIFFERENTIAL, BODY FLUID (05/14/2025 8:38 AM EST)Component ValueRef RangeTest MethodAnalysis TimePerformed AtPathologist SignatureDiff Total Body Mzlou370zazji ozfrnzd2805/16/2025 12:53 AM [facility] LABNeut%, BF7(H)0 - 1 %05/16/2025 12:53 AM [facility] LABLymph%, BF78(H)18 - 36 %05/16/2025 12:53 AM [facility] Monocytes/Macrophages%, BF9(L)64 - 80 %05/16/2025 12:53 AM [facility] LABMeso%, BF5(H)0 - 2 %05/16/2025 12:53 AM [facility] Reac Lymph %, BF1%05/16/2025 12:53 AM [facility] LABSpecimen (Source)Anatomical Location / LateralityCollection Method / VolumeCollection TimeReceived TimeSterile Fluid/Body FluidABDOMEN / Useigse1405/14/2025 8:38 AM EST05/14/2025 7:07 PM EST Narrative Authorizing ProviderResult TypeResult StatusJeesperanza Salazar ARCHITECTURE INTERNSHIP.GLASS ENGRAVER LABORATORYFinal ResultPerforming OrganizationAddressCity/State/ZIP CodePhone Number [facility] [address] * CYTOLOGY NON-RETAIL AIDE (05/14/2025 8:38 AM EST)ComponentValueRef RangeTest Method Analysis TimePerformed AtPathologist SignatureCase ReportMedical Cytology Report ? Case: [id number] ? Authorizing Provider: ??Shreya Salazar, ?Collected: ? 05/14/2025 08:38 AM? ARCHITECTURE INTERNSHIP.GLASS ENGRAVER ? Ordering Location: ? Gastroenterology ? Received: ?05/17/2025 04:37 AM ? Pathologist: ? Keena Lewis MD ? Specimen: ?Abdomen, paracentesis fluid ? 05/18/2025 9:55 AM [facility] LABORATORYFINAL DIAGNOSISA. Abdomen, Fluid: Negative for malignant cells. The following cell blocks were associated with this case: A1 Cell Block, Alcohol Fixed05/18/2025 9:55 AM [facility] at 0955 ESTGross DescriptionA. Abdomen 1450 cc cloudy awilda fluid with material. ThinPrep and Cell Block prepared. 05/18/2025 9:55 AM [facility] LABClinical RigzkaiZ43.8 - Other ascites [ICD-10-CM]05/18/2025 9:55 AM [facility] LABPerforming Lab Technical component, dairy equipment mechanic screening performed at: [facility], [address] [address] CLIA: [id number] Diagnostic interpretation performed at: [facility], [address] [place] [address] CLIA# [id number] Monitor And Storage Bin Tender: Leandro Haque MD 05/18/2025 9:55 AM [facility] LABORATORYDisclaimerLaboratory Developed Test (LDT) Disclaimer: Performance characteristics of immunohistochemical, immunofluorescent, and chromogenic in-situ hybridization tests have been determined by the performing laboratory within the [facility] Department of Pathology and Laboratory Medicine ([facility], [facility], [facility], [facility], [facility], [facility], or [facility]) in a manner consistent with CLIA requirements. One or more of these tests may not have been cleared or approved by the FDA. The [facility] Department of Pathology and Laboratory Medicineis regulated under CLIA as qualified to perform high-complexity testing. These tests are used for clinical purposes. These should not be regarded as investigational or for research. Positive and negative controls stain appropriately.05/18/2025 9:55 AM EST [facility] LABSpecimen (Source)Anatomical Location / Laterality Collection Method / VolumeCollection TimeReceived TimeSterile Fluid/Body Fluid ABDOMEN / Akusaxf1605/14/2025 8:38 AM EST05/17/2025 4:37 AM EST Narrative Authorizing ProviderResult TypeResult StatusShreya Salazar ARCHITECTURE INTERNSHIP.CNPCYTOLOGY Final ResultPerforming OrganizationAddressCity/State/ZIP CodePhone Number [facility] [address] [place] [address], [facility] [address] [place] [address], * BACTERIAL CULTURE AND GRAM STAIN, STERILE BODY FLUID (05/14/2025 8:38 AM EST) ComponentValueRef RangeTest MethodAnalysis TimePerformed AtPathologist SignatureCulture, Body FldNo growth MINIMUM INHIBITORY CONCENTRATION(VITEK) 05/20/2025 11:22 AM [facility] LABGram StainNo organisms seen 05/20/2025 11:22 AM [facility] LABGram StainRare Polymorphonuclear /04/2025 11:22 AM [facility] LABGram StainGram stain performed on cytospun specimen.05/20/2025 11:22 AM [facility] Gram StainGram stain from primary specimen05/20/2025 11:22 AM [facility] LABSpecimen (Source)Anatomical Location / LateralityCollection Method / VolumeCollection TimeReceived TimeSterile Fluid/Body FluidABDOMEN / Fqmlnsc2805/14/2025 8:38 AM EST05/14/2025 7:07 PM EST Narrative Authorizing ProviderResult TypeResult StatusShreya Salazar ARCHITECTURE INTERNSHIP.GLASS ENGRAVER MICROBIOLOGYFinal ResultPerforming OrganizationAddressCity/State/ZIP CodePhone Number [facility] [address] [place] [address], * BACTERIAL CULTURE, TISSUE AND WOUND, ANAEROBIC (05/14/2025 8:38 AM EST) ComponentValueRef RangeTest MethodAnalysis TimePerformed AtPathologist SignatureCulture, AnaerobeNegative for anaerobes. MINIMUM INHIBITORY CONCENTRATION(VITEK) 05/20/2025 11:30 AM [facility] LABSpecimen (Source)Anatomical Location / LateralityCollection Method / VolumeCollection TimeReceived Time Sterile Fluid/Body FluidABDOMEN / Mrkqfrm4905/14/2025 8:38 AM EST05/14/2025 7:07 PM EST Narrative Authorizing ProviderResult TypeResult StatusJessica Marie ARCHITECTURE INTERNSHIP.[facility] MICROBIOLOGYFinal ResultPerforming OrganizationAddressCity/State/ZIP CodePhone Number [facility] [address] [place] [address], * PROTEIN, BODY FLUID (05/14/2025 8:38 AM EST)ComponentValueRef RangeTest Method Analysis TimePerformed AtPathologist SignatureProtein, Body Fluid4.2See Comment g/dL05/14/2025 9:47 PM [facility] LABComment: Serous fluids: Effusions are the accumulation of [...] Fluids in Clinical Chemistry Approved Guideline. CLSI haszfordB98V. RAJEEV Bui: Clinical Laboratory Standards [place]: 2007. Specimen (Source)Anatomical Location / LateralityCollection Method / Volume Collection TimeReceived TimeSterile Fluid/Body FluidABDOMEN / Mppjwtj0705/14/2025 8:38 AM EST05/14/2025 7:07 PM EST Narrative Authorizing ProviderResult TypeResult StatusJeesperanza Matosmetono ARCHITECTURE INTERNSHIP.GLASS ENGRAVER LABORATORYFinal ResultPerforming OrganizationAddressCity/State/ZIP CodePhone Number [facility] [address] [place] [phone], [place] * LIPASE BFL (05/14/2025 8:38 AM EST)ComponentValueRef RangeTest MethodAnalysis TimePerformed AtPathologist SignatureLipase, Body Odioj72Yps Comment U/L 05/14/2025 10:55 PM [facility] LABComment: Pleural fluids: Lipase measurement in pleural fluid, in conjunction with amylase measurement, is considered a useful test for determining the cause of pleural effusions. Peritoneal fluids and drainage fluids: Pancreatic damage causes extravasation of lipase from the exocrine cells into the peritoneal space. In cases of pancreatitis, fluid lipase concentration can be several-fold times higher in fluid of pancreatic origin compared to concurrent serum lipase values. Pancreatic cyst fluid: Pancreatic cyst fluid lipase may aid in the differentiation of pancreatic cyst lesions and should be interpreted along with other clinical and laboratory information. References: 1. CLSI. Analysis of Body Fluids in Clinical Chemistry Approved Guideline. CLSI document C49A. RAJEEV Bui: Clinical Laboratory Standards [place]: 2007. 2. Jenna Saeed. A review of pancreatic cyst fluid analysis in the differential diagnosis of pancreatic cyst lesions. Criss Clin Biochem OnlineFirst 2013:0:1-16. Body Fluid Type (Lipase)PARACENTESIS FLUID05/14/2025 10:55 PM [facility] LABSpecimen (Source)Anatomical Location / LateralityCollection Method / VolumeCollection TimeReceived TimeSterile Fluid/Body FluidABDOMEN / Wupsjhv2405/14/2025 8:38 AM EST05/14/2025 7:07 PM EST Narrative Authorizing ProviderResult TypeResult StatusJeesperanza Salazar APRN.[facility] LABORATORYFinal ResultPerforming OrganizationAddressCity/State/ZIP CodePhone Number [facility] [address] [place] [address], [place] * BODY FLUID CELL COUNT (05/14/2025 8:38 AM EST)ComponentValueRef RangeTest MethodAnalysis TimePerformed AtPathologist SignatureSite, OWZzgrcje05/28/2025 10:19 PM [facility] LABColor, NCQnvwygKmonce81/28/2025 10:19 PM [facility] LABClarity, OTFljjaVyqqh84/28/2025 10:19 PM EST [facility] LABSupernatant Color, BFNot YtgupwuneFftheg92/28/2025 10:19 PM [facility] LABSupernatant Clarity, BFNot IndicatedClear 05/14/2025 10:19 PM [facility] LABRBC, Body Fluid<2,000<2,000 /uL05/14/2025 10:19 PM [facility] LABTotal Nucleated Cells, BF 195<1,000 /uL05/14/2025 10:19 PM [facility] LABSpecimen (Source) Anatomical Location / LateralityCollection Method / VolumeCollection Time Received TimeSterile Fluid/Body FluidABDOMEN / Vugaxjh3705/14/2025 8:38 AM EST 05/14/2025 7:07 PM EST Narrative Authorizing ProviderResult TypeResult StatusJeesperanza Salazar APRN.CNP LABORATORYFinal ResultPerforming OrganizationAddressCity/State/ZIP CodePhone Number [facility] [address] [place] [address], * AMYLASE, BODY FLUID (05/14/2025 8:38 AM EST)ComponentValueRef RangeTest Method Analysis TimePerformed AtPathologist SignatureAmylase, Body Jlgyh30Jia Comment U/L107/14/2024 10:55 PM [facility] LABComment: PLEURAL FLUIDS: Amylase measurement in pleural fluid is considered a useful test for detecting amylase-rich pleuraleffusions, which may be caused by exudative conditions associated with pancreatitis, esophageal rupture, malignancy, pneumonia, and liver cirrhosis. A ratio of pleural fluid amylase to a concurrent serum amylase >1 is defined as an amylase-rich pleural effusion. PERITONEAL FLUIDS AND DRAINAGE FLUIDS: Pancreatic damage causes extravasation of amylase from the exocrine cells into the peritoneal space. In cases of pancreatitis, fluid amylase should be at least several-fold times higher in fluid of pancreatic origin compared to concurrent serum amylase values. PANCREATIC CYST FLUID: Pancreatic cyst fluid amylase may aid in characterizing tumors and should be interpreted along withother clinical and laboratory information. References: 1. Rafael STARK, Lesley Doyle. Body fluid analysis: clinical utility and applicability of published studies to guide interpretation of todays laboratory testing in serous fluids. Crit Rev Clin Lab Sci, 2013;50(4-5):107-124. 2. CLSI. Analysis of Body Fluids in Clinical Chemistry; Approved Guideline. CLSI document C49-A. RAJEEV Bui: Clinical Laboratory Standards [place]; 2007. 3. Alejandra CLH, Estuardo RC, Adarsh DJ. Use of cyst fluid CEA, CA19-9, and amylase for evaluation of pancreatic lesions. Clinical Biochemistry. 2009;42:5473-5312. This test was developed, and its performance characteristics determined by the [facility] Department of Pathology and Laboratory Medicine. It has not been cleared or approved by the FDA. The [facility] Department of Pathology and Laboratory Medicine is regulated under CLIA as qualified to perform high-complexity testing. This test is used for clinical purposes. It should not be regarded as investigational or for research. Body Fluid Type (Amylase)PARACENTESIS FLUID05/14/2025 10:55 PM [facility] LABSpecimen (Source)Anatomical Location / LateralityCollection Method / VolumeCollection TimeReceived TimeSterile Fluid/Body FluidABDOMEN / Ihqmbcr7605/14/2025 8:38 AM EST05/14/2025 7:07 PM EST Narrative Authorizing ProviderResult TypeResult StatusJessanny Salazar ARCHITECTURE INTERNSHIP.GLASS ENGRAVER LABORATORYFinal ResultPerforming OrganizationAddressCity/State/ZIP CodePhone Number [facility] [address] * ALBUMIN, BODY FLUID (05/14/2025 8:38 AM EST)ComponentValueRef RangeTest Method Analysis TimePerformed AtPathologist SignatureAlbumin, Body Fluid2.7See Comment g/dL05/14/2025 10:55 PM [facility] LABComment: Body Fluid Albumin may be used in [...] document C49A. RAJEEV Bui: Clinical Laboratory Standards [place]: 2007. 2. Dionicio SERNA. Serum to ascites albumin gradient. UpToDate. 2015. Accessed on September 28, 2015. This test was developed, and its performance characteristics determined by the [facility] Department of Pathology and Laboratory Medicine. It has not been cleared or approved by the FDA. The [facility] Department of Pathology and Laboratory Medicine is regulated under CLIA as qualified to perform high-complexity testing. This test is used for clinical purposes. It should not be regarded as investigational or for research. Body Fluid Type (Albumin)PARACENTESIS FLUID05/14/2025 10:55 PM [facility] LABSpecimen (Source)Anatomical Location / LateralityCollection Method / VolumeCollection TimeReceived TimeSterile Fluid/Body FluidABDOMEN / Pgozira6605/14/2025 8:38 AM EST05/14/2025 7:07 PM EST Narrative Authorizing ProviderResult TypeResult StatusJessanny Castellanoister ARCHITECTURE INTERNSHIP.GLASS ENGRAVER LABORATORYFinal ResultPerforming OrganizationAddressCity/State/ZIP CodePhone Number [facility] [address] * [place] PARACENTESIS (POC) DDI USE ONLY (05/14/2025 8:25 AM EST)Specimen (Source) Anatomical Location / LateralityCollection Method / VolumeCollection Time Received Time05/14/2025 8:25 AM EST Narrative Authorizing ProviderResult TypeResult StatusJessica Zangmeister [employer]URE [employer]NSHIP.CNPIMAGES Final ResultPerforming OrganizationAddressCity/State/ZIP CodePhone Number [facility] * PROTHROMBIN TIME (05/12/2025 9:38 AM EST)ComponentValueRef RangeTest Method Analysis TimePerformed AtPathologist SignaturePT Sec12.39.7 - 13.0 sec 05/12/2025 10:08 AM [facility] LABINR1.20.9 - 1. 10:08 AM [facility] LABComment: Vitamin K Antagonist (VKA) Therapeutic Range: INR 2 to 3 (Target INR of 2.5) Note: For patients treated with VKA drugs, such as warfarin, the [place] [employer] 2012 Guideline recommends [...] to 3.5 (target INR of 3). Camilla GH, et al. Chest 2012, 141:7S-47S Simone RA, et al. JACC 2017, 70: 252-289 Specimen (Source)Anatomical Location / LateralityCollection Method / Volume Collection TimeReceived TimeBloodBLOOD SPECIMEN / UnknownVenipuncture / Unknown 05/12/2025 9:38 AM EST05/12/2025 9:39 AM EST Narrative Authorizing ProviderResult TypeResult StatusWillhira Hills MDLABORATORYFinal ResultPerforming OrganizationAddressCity/State/ZIP CodePhone Number [facility] [address] * (ABNORMAL) COMPREHENSIVE METABOLIC PANEL (05/12/2025 9:38 AM EST) Only the most recent of2 resultswithin the time period is included. ComponentValueRef RangeTest MethodAnalysis TimePerformed AtPathologist Signature Protein, Total7.06.3 - 8.0 g/dL05/12/2025 12:16 PM [facility] Albumin3.8(L)3.9 - 4.9 g/dL05/12/2025 12:16 PM ESTNEW[facility] Calcium, Total9.38.5 - 10.2 mg/dL05/12/2025 12:16 PM [facility] LABBilirubin, Total0.60.2 - 1.3 mg/dL05/12/2025 12:16 PM [facility] LABAlkaline Fzfmbcftrbb55944 - 113 U/L107/12/2024 12:16 PM [facility] MFKHKT1889 - 40 U/L107/12/2024 12:16 PM [facility] RBO3818 - 54 U/L107/12/2024 12:16 PM [facility] VPZRlkoklx302(H)74 - 99 mg/dL05/12/2025 12:16 PM [facility] LABComment: The [place] [employer] Association (ADA) provides guidance for cutoff [...] Standards of Medical Care in Diabetes 2016, [place] [employer]. Diabetes Care. 2016.39(Suppl 1). BUN33(H)9 - 24 mg/dL05/12/2025 12:16 PM [facility] LABCreatinine 1.65(H)0.73 - 1.22 mg/dL05/12/2025 12:16 PM [facility] LABSodium 131(L)136 - 144 mmol/L107/12/2024 12:16 PM [facility] LABPotassium 5.03.7 - 5.1 mmol/L107/12/2024 12:16 PM [facility] NPQOoxjlcja32(L) 98 - 107 mmol/L107/12/2024 12:16 PM [facility] HWDQX12870 - 30 mmol/L107/12/2024 12:16 PM [facility] LABAnion Yvk132 - 15 mmol/L 05/12/2025 12:16 PM [facility] LABEstimated Glomerular Filtration Rate43(L)>=60 mL/min/1.73m 05/12/2025 12:16 PM [facility] LABComment:Estimated Glomerular Filtration Rate (eGFR) is [...] VolumeCollection TimeReceived TimeBloodBLOOD SPECIMEN / UnknownVenipuncture / Zgclhvo6405/12/2025 9:38 AM EST05/12/2025 9:39 AM EST Narrative Authorizing ProviderResult TypeResult StatusLuis Hills MDLABORATORYFinal ResultPerforming OrganizationAddressCity/State/ZIP CodePhone Number [facility] [address] [place] [address], * (ABNORMAL) AMMONIA (05/12/2025 9:38 AM EST)ComponentValueRef RangeTest Method Analysis TimePerformed AtPathologist XdljszusiEunygmx04(L)16 - 60 umol/L 05/12/2025 10:04 AM ESTNEWARK HOSPITAL LABSpecimen (Source)Anatomical Location / LateralityCollection Method / VolumeCollection TimeReceived Time BloodBLOOD SPECIMEN / UnknownVenipuncture / Jxqhpon0905/12/2025 9:38 AM EST 05/12/2025 9:39 AM EST Narrative Authorizing ProviderResult TypeResult StatusWigilbert Hills MDLABORATORYFinal ResultPerforming OrganizationAddressCity/State/ZIP CodePhone Number [facility] [address] * EGD - THERAPEUTIC, EUS, OR TUBE INTERVENTIONS (04/29/2025 11:03 AM EST) Anatomical RegionLateralityModalityOtherSpecimen (Source)Anatomical Location / LateralityCollection Method / VolumeCollection TimeReceived Time04/29/2025 11:03 AM EST Narrative 04/29/2025 12:28 PM EST Q3 Patient Name: Bryan Harris Procedure Date: 04/29/2025 11:03 AM Date of : 1950 Admit Type: Outpatient Age: 75 Gender: Male Note Status: Finalized Attending MD: Patrice Caraballo MD, [id number] Procedure: ? Upper GI endoscopy Indications: ? [...] Procedure Code(s): ? --- Professional --- ? 69319 CPT copyright 2020 [employer]. All rights reserved. Attending Participation: ? I was present and participated during the entire procedure, including ? non-mittal portions. Scope In: 11:24:38 AM Scope Out: 11:30:19 AM MD Patrice Cuellar MD 04/29/2025 11:39:31 AM This report has been signed electronically by Patrice Caraballo MD Number of Addenda: 0 Note Initiated On: 04/29/2025 11:03 AM Authorizing ProviderResult TypeResdori Terrell MDDIGESTIVE DISEASE Final Result * PT ED PATIENT INFORMATION (04/18/2025)Specimen (Source)Anatomical Location / LateralityCollection Method / VolumeCollection TimeReceived Time04/18/2025 Narrative KATHY - 06/03/2025 Jaylyn HILLS your patient BRYAN HARRIS has not started their Kathy program, time has . Kathy program: PATIENT SAFETY INSTRUCTIONS FOR HEALTHCARE SETTINGS Authorizing ProviderTan PaResdori Hills MDEMMIFinal Result Performing OrganizationAddressCity/State/ZIP CodePhone Number KATHY * PT ED DIGESTIVE DISEASE (04/18/2025) Only the most recent of2 resultswithin the time period is included. Specimen (Source)Anatomical Location / LateralityCollection Method / Volume Collection TimeReceived Time04/18/2025 Narrative KATHY - 05/19/2025 Jaylyn LANDRY your patient BRYAN HARRIS has not started their Kathy program, time has . Kathy program: UPPER GI ENDOSCOPY (EGD) Authorizing ProviderTan TypeResdori Landry MDEMMIFinal Result Performing OrganizationAddressCity/State/ZIP CodePhone Number KATHY * XR CHEST 2V FRONTAL/LAT (03/29/2025 1:09 [...] any questions regarding this interpretation, please call [phone]. If you are unable to reach us at the number above, please feel free to [facility] at [phone]. Narrative 03/30/2025 12:40 PM EDT * * [...] and soft tissues: ??Unremarkable. Procedure Note Provider, [facility] - 03/30/2025 * * *Final Report* [...] any questions regarding this interpretation, please call [phone]. If you are unable to reach us at the number above, please feel free to contact [facility] eRadiology at [phone]. Authorizing ProviderResult TypeResult StatusColin Riggs MDRAD-PAMAFinal Result * (ABNORMAL) PLATELET AGGREGATION (03/26/2025 10:42 AM EDT)ComponentValueRef RangeTest MethodAnalysis TimePerformed AtPathologist SignatureADP 5 uM Max Pcbyizaqrgs56(L)65 - 93 % Max03/30/2025 7:48 AM [facility] LABATP Release by ADP 5 uM0.40.1 - 1.3 nM03/30/2025 7:48 AM EDT [facility] LABADP 20 uM Max Xcuwgvqauay5394 - 94 % Max 03/30/2025 7:48 AM [facility] LABATP Release by ADP 20 uM 0.80.1 - 1.4 nM03/30/2025 7:48 AM [facility] Arachidonic Acid Max Tsgmbsrzbsg1353 - 100 % Max03/30/2025 7:48 AM EDT [facility] LABATP Release by Arachidonic Acid0.70.4 - 2.0 nM 03/30/2025 7:48 AM [facility] LABCollagen Max Aggregation 70(L)74 - 99 % Max03/30/2025 7:48 AM [facility] LABATP Release by Collagen0.60.4 - 1.7 nM03/30/2025 7:48 AM [facility] LABEpinephrine 10 uM Max Obuyayvwcyl9677 - 97 % Max03/30/2025 7:48 AM [facility] LABATP Release by Epinephrine 10 uM0.30.2 - 1.6 nM03/30/2025 7:48 AM [facility] LABEpinephrine 100 Max Omuqrlzzidd7137 - 99 % Max03/30/2025 7:48 AM [facility] LABATP Release by Epinephrine 100 uM0.70.2 - 1.7 nM03/30/2025 7:48 AM [facility] LABTHROMBOXANE A2 3 UM MAX LMLJDTLRNSA0799 - 93 % Max03/30/2025 7:48 AM [facility] LABATP RELEASE BY THROMBOXANE A20.40.2 - 1.4 nM03/30/2025 7:48 AM [facility] LABTHROMBIN 1 UNIT ATP RELEASE1.0>0.510 7:48 AM [facility] LABRisto 1500 u/mL Max Klrccjyeetu2463 - 100 % Max 03/30/2025 7:48 AM [facility] LABRisto 1200 u/mL Max Aykboykktia3930 - 100 % Max03/30/2025 7:48 AM [facility] LABRisto 900 u/mL Max Joavhdmkpvo7562 - 100 % Max03/30/2025 7:48 AM EDT [facility] LABRisto 500u/mL Max Wewupsjwjes01 - 9 % Max 03/30/2025 7:48 AM [facility] LABSpecimen (Source) Anatomical Location / LateralityCollection Method / VolumeCollection Time Received TimeBloodBLOOD SPECIMEN / UnknownVenipuncture / Gagxdbt9303/26/2025 10:42 AM EDT1 10:43 AM EDT Narrative Authorizing ProviderResult TypeResult StatusJose Antonio Eckertkelsey BECERRILLABORATORYFinal ResultPerforming OrganizationAddressCity/State/ZIP CodePhone Number [facility] [place] [address], * EXTRA LAV MAN COAG TUBE (03/26/2025 10:42 AM EDT)Specimen (Source)Anatomical Location / LateralityCollection Method / VolumeCollection TimeReceived Time BloodBLOOD SPECIMEN / UnknownVenipuncture / Ijikndc3303/26/2025 10:42 AM EDT 03/26/2025 10:43 AM EDT Narrative Authorizing ProviderResult TypeResult StatusJosuémartellsharona Meyers MDLABORATORYFinal ResultPerforming OrganizationAddressCity/State/ZIP CodePhone Number [facility] [place] [address], * PLATELET AGGREGATION INTERP (03/26/2025 10:42 AM [...] clinical findings and medication history.03/29/2025 6:39 PM [facility] LABPlt Aggreg Pathologist InterpReviewed by Edmund Lehman MD03/29/2025 6:39 PM [facility] LABSpecimen (Source)Anatomical Location / Laterality Collection Method / VolumeCollection TimeReceived TimeBloodBLOOD SPECIMEN / UnknownVenipuncture / Ejixhzc1203/26/2025 10:42 AM EDT1 10:43 AM EDT Narrative Authorizing ProviderResult TypeResult StatusVjuan francisco Meyers MDLABORATORYFinal ResultPerforming OrganizationAddressCity/State/ZIP CodePhone Number [facility] [address] [place] [address], * (ABNORMAL) BASIC METABOLIC PANEL (03/26/2025 10:42 AM EDT)ComponentValueRef RangeTest MethodAnalysis TimePerformed AtPathologist ZliktwfmxRbgyxsx235(H)74 - 99 mg/dL03/26/2025 12:16 PM [facility] LABORATORYComment: The [place] Diabetes Association (ADA) provides guidance for cutoff [...] Standards of Medical Care in Diabetes 2016, [place] [employer]. Diabetes Care. 2016.39(Suppl 1). BUN34(H)9 - 24 mg/dL03/26/2025 12:16 PM [facility] LABORATORYCreatinine 1.59(H)0.73 - 1.22 mg/dL03/26/2025 12:16 PM [facility] PEYMFBMFAAJrjiqf565 (L)136 - 144 mmol/L1 12:16 PM [facility] LABORATORYPotassium3.8 3.7 - 5.1 mmol/L1 12:16 PM [facility] WFAOSSKMTIScvxofam23(L)98 - 107 mmol/L1 12:16 PM [facility] HBPVUKSNAMUL40849 - 30 mmol/L 03/26/2025 12:16 PM [facility] LABORATORYAnion Tct683 - 15 mmol/L 03/26/2025 12:16 PM [facility] LABORATORYCalcium, Total8.78.5 - 10.2 mg/dL 03/26/2025 12:16 PM [facility] LABORATORYEstimated Glomerular Filtration Rate45(L)>=60 mL/min/1.73m 03/26/2025 12:16 PM [facility] LABORATORYComment:Estimated Glomerular Filtration Rate (eGFR) [...] VolumeCollection TimeReceived TimeBloodBLOOD SPECIMEN / UnknownVenipuncture / Haeoyay4203/26/2025 10:42 AM EDT1 10:43 AM EDT Narrative Authorizing ProviderResult TypeResult StatusVjuan francisco Meyers MDLABORATORYFinal ResultPerforming OrganizationAddressCity/State/ZIP CodePhone Number [facility] [address] [place] [address], [place] * EGD - THERAPEUTIC, EUS, OR TUBE INTERVENTIONS (03/24/2025 11:48 AM EDT) Anatomical RegionLateralityModalityOtherSpecimen (Source)Anatomical Location / LateralityCollection Method / VolumeCollection TimeReceived Time03/24/2025 11:48 AM EDT Narrative 03/24/2025 12:15 PM EDT A31 Gastrointestinal Endoscopy Patient Name: Bryan Harris Procedure Date: 03/24/2025 11:48 AM Date of : 1950 Admit Type: Outpatient Age: 75 Room: [place] [address] Gender: Male Note Status: Finalized Attending MD: Aure Giraldo MD, [id number] Procedure: ? Upper GI endoscopy Indications: ? [...] Procedure Code(s): ? --- Professional --- ? 74647, Esophagogastroduodenoscopy, flexible, ? transoral; with insertion of guide wire followed by ? passage of dilator(s) through esophagus over guide ? wire Diagnosis Code(s): ? --- Professional --- ? 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 K76.6, Portal hypertension ? K31.89, Other diseases of stomach and duodenum ? R13.10, Dysphagia, unspecified CPT copyright 2020 [employer]. All rights reserved. The codes documented in this report are preliminary and upon review rn review may be revised to meet current [...] Body03/24/2025 Narrative 03/24/2025 Patient: Bryan Harris ?? [id number] Gender: Male Physician: Aure Giraldo MD / Age: 0903/13/1950 Quarter Folder: Julien Saleh LPN Height: Referring Physician: Sue [...] Motility Normal Number of swallows evaluated 10 [place] Classification ?% failed 0 ?% weak 0 [...] Naseer MDDIGESTIVE DISEASE Final Result * (ABNORMAL) COMPLETE BLOOD COUNT (01/25/2025 11:00 AM EDT)ComponentValueRef RangeTest MethodAnalysis TimePerformed AtPathologist SignatureWBC8.053.70 - 11.00 k/uL01/25/2025 11:05 AM [facility]TNORTMY[facility] LABRBC3.75 (L)4.20 - 6.00 m/uL01/25/2025 11:05 [facility] TDQYvoesokfir01.2(L)13.0 - 17.0 g/dL01/25/2025 11:05 AM [facility] XKYOcjqqrmups81.9(L)39.0 - 51.0 %01/25/2025 11:05 AM EDT [facility] CBTEBQ395.1(H)80.0 - 100.0 fL01/25/2025 11:05 [facility] TKLOXT58.526.0 - 34.0 pg 01/25/2025 11:05 AM [facility] FAVCVZS54.230.5 - 36.0 g/dL01/25/2025 11:05 AM [facility] LABRDW-CV 14.711.5 - 15.0 %01/25/2025 11:05 AM [facility] LAB Platelet Kzolq937564 - 400 k/uL01/25/2025 11:05 AM [facility] LABMPV9.89.0 - 12.7 fL01/25/2025 11:05 AM [facility] LABAbsolute nRBC<0.01<0.01 k/uL01/25/2025 11:05 AM EDT [facility] LABSpecimen (Source)Anatomical Location / LateralityCollection Method / VolumeCollection TimeReceived TimeBloodBLOOD SPECIMEN / UnknownVenipuncture / Okzakgt2801/25/2025 11:00 AM EDT01/25/2025 11:00 AM EDT Narrative Authorizing ProviderResult TypeResult StatusVyacheslav Isakov MDLABORATORYFinal ResultPerforming OrganizationAddressCity/State/ZIP CodePhone Number [facility] [address] [place] [address] * HEPATITIS C ANTIBODY IA WITH CONFIRMATION (01/08/2025 12:33 PM EDT)Component ValueRef RangeTest MethodAnalysis TimePerformed AtPathologist SignatureHep C Antibody VGHiqmysibVrjzerxx70/26/2025 11:03 AM [facility] LABComment:The result suggests no evidence of infection with Hepatitis C virus. Should recent infection be suspected, repeat testing may be considered 4-6 weeks after this draw.Specimen (Source)Anatomical Location / Laterality Collection Method / VolumeCollection TimeReceived TimeBloodBLOOD SPECIMEN / UnknownVenipuncture / Fyumhcf5401/08/2025 12:33 PM EDT01/08/2025 12:33 PM EDT Narrative Authorizing ProviderResult TypeResult StatusAraseli Wall APRN.CNPLABORATORYFinal ResultPerforming OrganizationAddressCity/State/ZIP CodePhone Number [facility] [address] [facility] [address] [place] [address], [place] * CHOLESTEROL BFL (05/18/2024 12:52 PM EST)ComponentValueRef RangeTest Method Analysis TimePerformed AtPathologist SignatureCholesterol, Body Lhvsj17Vkb Comment mg/dL05/19/2024 3:06 AM [facility] LABComment: SYNOVIAL FLUIDS: Synovial fluid cholesterol measurement [...] document C49-A. RAJEEV Bui: Clinical Laboratory Standards [place]; 2007. Body Fluid Type (Chol)Pleural Cavity, Right05/19/2024 3:06 AM [facility] LABSpecimen (Source)Anatomical Location / Laterality Collection Method / VolumeCollection TimeReceived TimeSterile Fluid/Body Fluid PLEURAL FLUID / UnknownNon Blood / Eonnqoo1505/18/2024 12:52 PM EST05/18/2024 11:34 PM EST Narrative Authorizing ProviderResult TypeResult StatusUdchapis Douglas MDLABORATORYFinal ResultPerforming OrganizationAddressCity/State/ZIP CodePhone Number [facility] [address] [facility] [address] [place] [address], [place] * COLONOSCOPY (THERAPEUTIC) (04/28/2024 11:16 AM EST)Anatomical RegionLaterality ModalityOtherSpecimen (Source)Anatomical Location / LateralityCollection Method / VolumeCollection TimeReceived Time04/28/2024 11:16 AM EST Narrative 04/28/2024 11:59 AM EST [facility] Gastrointestinal Endoscopy Patient Name: Bryan Harris Procedure Date: 04/28/2024 11:16 AM Date of : 1950 Admit Type: Outpatient Age: 74 Room: [place] [address] Gender: Male Note Status: Finalized Attending MD: Vic Ponce MD, [id number] Procedure: ?Colonoscopy Indications: ?Chronic diarrhea Comorbidities ? Patient with chronic right pleural effusion unknown etiology/origin ? with N,V, diarrhea and weight loss. Providers: ?Vic Ponce MD, Nenita Almonte RN, Abbie ?EVAN Ivey, Adri Bradley RN (Assisting ?Nurse) Patient Profile: [...] physician, the nurse, the ?anesthesiologist and the contractor buyer in the ?procedure room at 11:29 AM. [...] prior dose. Procedure Code(s): ?--- Professional --- ?57484, Colonoscopy, flexible; with biopsy, ?single or multiple Diagnosis Code(s): ?--- Professional --- ?K52.9, Noninfective gastroenteritis and colitis, ?unspecified CPT copyright 2020 [employer]. All rights reserved. The codes documented in this report are preliminary and upon review rn review may be revised to meet current [...] Estimated blood loss: none. Authorizing ProviderResult TypeResult StatusMalihbrianda Terrell MDDIGESTIVE DISEASE Final Result from Last 3 Months or Most Recently Relevant to Health Maintenance Insurance Advance Directives TypeDate RecordedPatient RepresentativeExplanationAdvance Directive(s)11/12/2023 2:37 PM * Full Code (Latest Code Status on File) Date ActivatedDate InactivatedComments12/20/2023 10:18 PM12/26/2023 9:02 PMQuestion AnswerCommentsFull Code Order Discussed With:* Patient Care Teams Team MemberRelationshipSpecialtyStart [place] [address] [address], [place] [id number] PCP - [facility]Mad[facility] Care Systemly Medicine12/29/23 Jere Sales MD [address] [address] ReferringGastroenterology12/05/20 Calin Gotti DO [address] [place], [place] [id number] Internal Medicine10/16/23 Dawit Lorenz DO [address] [place] [address] Internal Gvboskpp70/31/25
--- OUTSIDE RECORDS SUMMARY | 2025-06-03 10:08 | XMS_ITS | Encounter Summary ---
Author Organization [facility] Address [address] [place] [id number] Care Team Providers Care Repairer Name Role Phone Jere Sales MD Unavailable [phone] Calin Gotti DO Unavailable [phone] Jose Antonio Meyers MD Primary Care Provider [phone] Dawit Lorenz DO Unavailable [phone] Source Comments In the event this information is protected by the Federal Confidentiality of Alcohol and Drug AbusePatient Records regulations: The Federal rules restrict any use of the information to criminally investigate or prosecute any alcohol or drug abuse patient.[facility] Encounter Details DateTypeDepartmentCare Team (Latest Contact Info)Lfadzgtdlca61/16/2025 Get Medical Advice Gastroenterology [address] [phone] [place] [address] [place] [address] [place] [address] Willie Harris 1950 Social History Tobacco UseTypesPacks/DayYears UsedDateSmoking Tobacco: NeverSmokeless Tobacco: NeverAlcohol UseStandard Drinks/WeekCommentsYes0 (1 standard drink = 0.6 oz pure alcohol)socially, no drink since HC UtilitiesAnswerDate RecordedIn the past 12 months has the [employer], gas, oil, or water Realm threatened to shut off services in your [...] steady place to sleep or slept in [place] (including now)?No11/21/2023rea Deprivation IndexAnswerDate RecordedNational Score (1-100), lower number is lower bmov622312/11/2023State Score (1-10), lower number is lower lggz262ata from: https://www.neighborhoodatlas.medicine.[facility].edu/. Last address used for psqqf[address]pany[address]06/26/2024Sex and Gender InformationValueDate Recorded Sex Assigned at FbaanIccv24/24/2025 12:44 PM EDTLegal KsvFoiz6612/05/2020 12:24 PM EDTGender UomnmwojNxan85/24/2025 12:44 PM EDTSexual OrientationNot on file documented as of this encounter Functional Status * Are you deaf or do you have serious difficulty hearing?AnswerDate of PvitkztkbkIszzyyYz79/11/2024 4:30 PM Sheri Guo RN * Are you blind or do you have serious difficulty seeing, even when wearing glasses?AnswerDate of XhzukczeubYiudojQx40/11/2024 4:30 PM Sheri Guo RN * Do you have serious difficulty walking or climbing stairs?AnswerDate of XkwfheewxhWxryybTs75/11/2024 4:30 PM Sheri Guo RN * Do you have difficulty dressing or bathing?AnswerDate of AssessmentAuthorNo 12/26/2023 4:30 PM Sheri Guo RN * Because of a physical, mental, or emotional condition, do you have difficulty doing errands alone such as visiting a doctor's office or shopping?AnswerDate of DolhmrysetFayoxqRm63/11/2024 4:30 PM Sheri Guo RN documented as of this encounter Mental Status * Because of a physical, mental, or emotional condition, do you have serious difficulty concentrating, remembering, or making decisions?AnswerEntry Date NlxiedJv31/11/2024 4:30 PM Sheri Guo RN documented in this encounter Miscellaneous Notes * Telephone Encounter - Keven Hawkins RN - 06/02/2025 9:21 AM EST Question sent to Dr. Valentine via phone encounter. Keven Hawkins RN documented in this encounter Plan of Treatment DateTypeDepartmentCare Team (Latest Contact Info)Npunhrqmlcy41/16/2026 10:05 AM ESTOffice Visit Gastroenterology [address] [phone] Luis Valentine MD [address] [phone] Follow Up08/06/2025 1:30 PM ESTOffice [place] [address] [place] [address] [place] [address] [place] [address] Follow-updocumented as of this encounter Goals GoalPatient Goal TypeAssociated ProblemsRecent ProgressPatient-Stated?Author Blood Pressure < 130/80 Blood Dwzfdckr748/84(05/21/2025 2:02 PM EST)Sung Mosley MD documented as of this encounter Visit Diagnoses Not on filedocumented in this encounter Care Teams Team MemberRelationshipSpecialtyStart [place] [address] [place] [address] PCP - GeneralFamily Medicine12/29/23 Jere Sales MD [address] [place] [address] ReferringGastroenterology12/05/20 Calin Gotti DO [address] [place] [address] Internal Medicine10/16/23 Dawit Lorenz DO [address] [place] [address] Internal Cztgbvwj23/31/25documented as of this encounter
--- OUTSIDE RECORDS SUMMARY | 2025-06-03 10:08 | XMS_ITS | Encounter Summary ---
Author Organization [facility] Address [address] [place] [address] Care Team Providers Care Perinatal Director Name Role Phone Jere Sales MD Unavailable [phone] Calin Gotti DO Unavailable [phone] Jose Antonio Meyers MD Primary Care Provider [phone] Dawit Lorenz DO Unavailable [phone] Source Comments In the event this information is protected by the Federal Confidentiality of Alcohol and Drug AbusePatient Records regulations: The Federal rules restrict any use of the information to criminally investigate or prosecute any alcohol or drug abuse patient.[facility] Reason for Visit * ReasonCommentsOrders Encounter Details DateTypeDepartmentCare Team (Latest Contact Info)Diutcxmosiu61/17/2025Telephone Gastroenterology [address] [phone] Luis Valentine MD [address] [place], [place] [address] [place] [address] Orders Social History Tobacco UseTypesPacks/DayYears UsedDateSmoking Tobacco: NeverSmokeless Tobacco: NeverAlcohol UseStandard Drinks/WeekCommentsYes0 (1 standard drink = 0.6 oz pure alcohol)socially, no drink since HC UtilitiesAnswerDate RecordedIn the past 12 months has the foodj[employer], gas, oil, or water [employer] threatened to shut off services in your [...] steady place to sleep or slept in [place] (including now)?No11/21/2023rea Deprivation IndexAnswerDate RecordedNational Score (1-100), lower number is lower pjhb986112/11/2023State Score (1-10), lower number is lower lgit477ata from: https://www.neighborhoodatlas.medicine.[facility].edu/. Last address used for mjznokufjjd[address]12/11/2023Sex and Gender InformationValueDate Recorded Sex Assigned at ZbuzbPjpt27/24/2025 12:44 PM EDTLegal KfnSjnm9212/05/2020 12:24 PM EDTGender RewzdjvhMdvr98/24/2025 12:44 PM EDTSexual OrientationNot on file documented as of this encounter Functional Status * Are you deaf or do you have serious difficulty hearing?AnswerDate of QijfgjalhaDgrzorVh13/11/2024 4:30 PM Sheri Guo RN * Are you blind or do you have serious difficulty seeing, even when wearing glasses?AnswerDate of BqfoocywkhExyvbkTz90/11/2024 4:30 PM Sheri Guo RN * Do you have serious difficulty walking or climbing stairs?AnswerDate of QukajffknhWqhkaoPc72/11/2024 4:30 PM Sheri Guo RN * Do you have difficulty dressing or bathing?AnswerDate of AssessmentAuthorNo 12/26/2023 4:30 PM Sheri Guo RN * Because of a physical, mental, or emotional condition, do you have difficulty doing errands alone such as visiting a doctor's office or shopping?AnswerDate of FtydhnsluxPaimhuGd42/11/2024 4:30 PM Sheri Guo RN documented as of this encounter Mental Status * Because of a physical, mental, or emotional condition, do you have serious difficulty concentrating, remembering, or making decisions?AnswerEntry Date RvzuhoQi42/11/2024 4:30 PM Sheri Guo RN documented in this encounter Miscellaneous Notes * Telephone Encounter - Keven Hawkins RN - 06/02/2025 9:24 AM EST Pt sent the following mcm: Willie wants me to ask about abdominal drain again. He???s feeling full, no appetite, nauseated with some swallowing issues & vomiting. His abdomen has only been drained once & that was 05/14/25 with 5.4 liters removed. I m guessing the Dr needs to order this & I would need a number to call. Again, thank you for your help. We both appreciate your assistance beyond words!!! Standing para order pended, discussed w/ pt prior that if the ascites reoccurs standing orderswould be put in after the first para Keven Hawkins RN June 02, 2025 9:26 AM documented in this encounter Plan of Treatment DateTypeDepartmentCare Team (Latest Contact Info)Ftuiaybhezp71/16/2026 10:05 AM ESTOffice Visit Gastroenterology [address] [address] Luis Valentine MD [address] [place] [address] Follow Up08/06/2025 1:30 PM ESTOffice [place] [address] [place] [address] [place] [address] [facility] [place] [address] Follow-updocumented as of this encounter Goals GoalPatient Goal TypeAssociated ProblemsRecent ProgressPatient-Stated?Author Blood Pressure < 130/80 Blood Icxyhkvb139/84(05/21/2025 2:02 PM EST)Sung Mosley MD documented as of this encounter Visit Diagnoses Diagnosis Liver disease- Primary Unspecified disorder of liver Other ascites documented in this encounter Care Teams Team MemberRelationshipSpecialtyStart [place] [address] [facility] [place] [address] PCP - GeneralFamily Medicine12/29/23 eJre Sales MD [address] [address] ReferringGastroenterology12/05/20 Calin Gotti DO [address] [place] [address] Internal Medicine10/16/23 Dawit Lorenz DO [address] [place] [address] [address] [facility] [place] [address] Internal Sukocnuu23/31/25documented as of this encounter
[2025-06-03 10:25] LABS: Hematocrit 33.0 % (42.0-54.0); Hemoglobin 10.6 g/dL (14.0-18.0); Mean Corpuscular HGB Conc 32.1 g/dL (29.9-35.2); Mean Corpuscular Hemoglobin 30.4 pg (25.9-34.0); Mean Corpuscular Volume 94.6 fL (80.0-94.0); Platelet Count 283 10^3/uL (150-450); Red Blood Count 3.49 10^6/uL (4.70-6.10); White Blood Count 8.4 10^3/uL (4.0-11.0)
[2025-06-03 10:50] LABS: Alanine Aminotransferase 14 U/L (16-63); Albumin Globulin Ratio 0.8; Albumin Level 3.1 g/dL (3.4-5.0); Alkaline Phosphatase 127 U/L (46-116); Anion Gap 14.8; Aspartate Amino Transferase 11 U/L (15-37); Blood Urea Nitrogen 30.0 mg/dL (7.0-18.0); Calcium 8.8 mg/dL (8.5-10.1); Carbon Dioxide 25.1 mmol/L (21.0-32.0); Chloride 98 mmol/L (98-107); Estimated GFR (African America 44 (>=60 mL/min/1.73m^2); Estimated GFR (Non-African Ame 36 (>=60 mL/min/1.73m^2); Globulin 4.0 g/dL; Glucose 95 mg/dL (74-106); Magnesium 2.4 mg/dL (1.8-2.4); Potassium 4.9 mmol/L (3.5-5.1); Sodium 133 mmol/L (136-145); Total Protein 7.1 g/dL (6.4-8.2)
[2025-06-03 10:59] LABS: Basophils Abs Manual 0.00 10^3/uL (0.00-0.10); Basophils Percent Manual 0.0 % (0.2-2.0); Eosinophils Absolute Manual 0.00 10^3/uL (0.00-0.70); Eosinophils Percent Manual 0.0 % (0.9-7.0); Lymphocytes Absolute Manual 1.09 10^3/uL (1.20-3.80); Lymphocytes Percent Manual 13.0 % (20.5-60.0); Monocytes Absolute Manual 0.75 10^3/uL (0.30-0.80); Monocytes Percent Manual 9.0 % (1.7-12.0); Segmented Neut Absolute Manual 6.55 10^3/uL (1.4-6.5); Segmented Neutrophils % Manual 78.0 (43.0-75.0)
== END 2025-06-03 10:01 | disposition home or self-care (01) ==
LOC: LAB 10:03
PROVIDERS: PCP Internal Medicine; Visit Provider Internal Medicine
DX: E83.42 Hypomagnesemia (principal); K74.60 Unspecified cirrhosis of liver; R18.8 Other ascites; I10 Essential (primary) hypertension
CPT/HCPCS: 36415; 80053; 83735; 85007; 85027